=== PATIENT | female | born 1995 | race Caucasian/White ===

== ENCOUNTER 2018-01-23 07:43 | Emergency (ER) | payer MEDICAID, SELFPAY ==
[2018-01-23 07:44] VITALS: BP 124/69; PULSE 102; RESP 18; TEMP 36.4; O2SAT 98; BMI 37.3
--- NOTE | 2018-01-23 07:54 | ED.VISSUMM ---
- ER Visit Summary Date of Service: 01/23/18 Chief Complaint: Abdominal pain History of Present Illness: The patient is a 22 F who presents with abdominal pain. She states for the past week she has been having intermittent cramping in her suprapubic area. She has had some nausea associated with this. No vomiting, diarrhea or constipation. She denies any urinary symptoms. Her last menstrual period was on December 15. She states these do feel like period cramps. She had an IUD that was taken out in November. It was Mirena. She has not had a fever. She took no medications for this at home. Physical Examination: Vital signs reviewed. HEENT exam unremarkable. Heart is regular rate and rhythm without murmurs. Lungs are clear to auscultation. Abdomen is soft with suprapubic tenderness to palpation. Extremities reveal no edema. Skin exam normal. Neurologic exam normal. Test Results: Urinalysis reveals 10-25 white blood cells. HCG is positive. An hCG quantitative was then obtained and shows a quant of 81 Emergency Department Course and Treatment: The patient's initial urine hCG was initially negative but then after it sat it became positive. A quant shows a level of 81. She does have 10-25 white blood cells in her urine. Patient does have a . She is very early so I do not feel that ultrasound is needed. I will treat her with antibiotics for the urinary tract infection. She will be given the on-call [employer] TECHNICIAN for follow-up. Treatment Plan: [] Disposition: Discharge Impression: UTI, This note was generated with tomoguides dictation software. It may contain incorrect words, spelling, and punctuation that were not noted in review of the chart prior to signing ED Disposition - Plan for ED Patient: Chief Complaint: Abd Pain Referrals: [facility] Doctor,Out of [NON-STAFF] -
[2018-01-23] MEDS: Acetaminophen 500 MG Tablet 1000 MG PO (08:08)
[2018-01-23] MEDS: Ondansetron ODT 4 MG Tablet PO (08:08)
[2018-01-23 08:14] LABS: Mucous, Urine 0 SEEN /hpf (<or=2+)
[2018-01-23 08:20] LABS: Color, Urine Yellow (Yellow); Glucose, Dipstick 1000 mg/dl (Normal); Ketone-Dipstick 50 mg/dl (Negative); Leukocyte Esterase-Dipstick 100 /ul (Negative); Nitrite-Dipstick Negative (Negative); Occult Blood-Urine 10 /ul (Negative); Protein-Dipstick 15 mg/dl (Negative); Urine Bilirubin Dipstick Negative (Negative); Urine Clarity Sl. Cloudy (Clear); Urine Urobilinogen Normal (Normal)
[2018-01-23 08:22] LABS: Internal QC Validated? YES +Cl - CLEAR BKGD
[2018-01-23 08:31] LABS: Bacteria 1+ /hpf (None Seen); Red Blood Cells-Urine 0-5 SEEN /hpf (0-5); Squamous Epithelial Cells - UA 0-5 SEEN /hpf (5-10); White Blood Cells 10-25 SEEN /hpf (0-5)
[2018-01-23 08:46] LABS: Pregnancy, Urine Positive Negative
[2018-01-23 09:57] LABS: hCG Titer Quant., Serum 81 mIU/mL (<9 non-preg)
--- NOTE | 2018-01-23 10:03 | ED.DEP ---
ED Disposition - Plan for ED Patient: Disposition: Home or Assisted Living Chief Complaint: Abd Pain Instructions: ED UTI Cystitis Female Prescriptions: Cephalexin [Keflex] 500 mg PO BID #10 cap Referrals: [facility] Doctor,Out of [NON-STAFF] - Vance Mitchell MD [STAFF PHYSICIAN] -
== END 2018-01-23 10:17 | disposition home or self-care (01) ==
PROVIDERS: Emergency Provider Emergency Medicine
DX: O23.40 Unspecified infection of urinary tract in pregnancy, unspecified trimester (principal); O99.519 Diseases of the respiratory system complicating pregnancy, unspecified trimester; J45.909 Unspecified asthma, uncomplicated; O24.919 Unspecified diabetes mellitus in pregnancy, unspecified trimester; O16.9 Unspecified maternal hypertension, unspecified trimester; O99.330 Smoking (tobacco) complicating pregnancy, unspecified trimester; F17.200 Nicotine dependence, unspecified, uncomplicated; Z3A.00 Weeks of gestation of pregnancy not specified; Z79.84 Long term (current) use of oral hypoglycemic drugs; Z79.899 Other long term (current) drug therapy
CPT/HCPCS: 36415; 81001; 81025; 84702; 99283

== ENCOUNTER → 2018-01-27 12:46 | Outpatient (CLI) | payer MEDICAID, SELFPAY ==
[2018-01-27 22:00] LABS: Chlamydia Trachomatis by PCR Negative (Negative); Neisserai gonorrhoeae by PCR Negative (Negative); Probe Check PASS; Sample Adequacy Control PASS; Specimen Processing Control PASS
[2018-02-04 08:08] LABS: HPV Reflexed? NOT INDICATED
== END ==
PROVIDERS: Visit Provider Obstetrics & Gynecology
DX: Z32.01 Encounter for pregnancy test, result positive (principal); Z11.3 Encounter for screening for infections with a predominantly sexual mode of transmission; Z12.4 Encounter for screening for malignant neoplasm of cervix
CPT/HCPCS: 87491; 87591; 88175; G0145

== ENCOUNTER → 2018-01-29 09:21 | Outpatient (CLI) | payer MEDICAID, SELFPAY ==
[2018-01-29 11:13] LABS: Hemoglobin A1c 9.2 % (4.2-6.3)
[2018-01-29 11:35] LABS: hCG Titer Quant., Serum 1140 mIU/mL (<9 non-preg)
== END ==
PROVIDERS: Visit Provider Obstetrics & Gynecology
DX: Z32.01 Encounter for pregnancy test, result positive (principal)
CPT/HCPCS: 36415; 83036; 84702

== ENCOUNTER → 2019-02-02 | Outpatient (CLI) | payer MEDICAID, SELFPAY | END | disposition home or self-care (01) | LOC: LABSPEC 02-03 11:38 | PROVIDERS: Visit Provider Obstetrics & Gynecology | DX: Z12.4 Encounter for screening for malignant neoplasm of cervix (principal) | CPT/HCPCS: 88175; G0145 ==

== ENCOUNTER → 2019-09-01 15:46 | Outpatient (CLI) | payer MEDICAID, SELFPAY ==
[2019-09-01 18:04] LABS: Progesterone Level 1.35 ng/mL (See Comment)
[2019-09-01 18:08] LABS: hCG Titer Quant., Serum < 1 mIU/mL (1-3)
== END ==
PROVIDERS: Visit Provider Obstetrics & Gynecology
DX: Z30.8 Encounter for other contraceptive management (principal)
CPT/HCPCS: 36415; 84144; 84702

== ENCOUNTER → 2021-01-01 | Outpatient (CLI) | payer MEDICAID, SELFPAY ==
[2021-01-01 14:05] LABS: M R Staph aureus DNA By PCR Negative (Negative); Probe Check PASS; Specimen Processing Control PASS; Staph aureus DNA By PCR POSITIVE (Negative)
== END | disposition home or self-care (01) ==
LOC: LABSPEC 10:38
PROVIDERS: Referring Provider Ophthalmology; Visit Provider Ophthalmology
DX: H00.031 Abscess of right upper eyelid (principal)
CPT/HCPCS: 87070; 87077; 87186; 87205; 87640

== ENCOUNTER 2024-09-24 13:48 | Outpatient (CLI) | payer MEDICARE, MEDICAID, SELFPAY ==
[2024-09-24 14:06] VITALS: BP 122/70; PULSE 100
[2024-09-24 14:07] VITALS: RESP 16; TEMP 36.7
[2024-09-24 15:07] VITALS: BMI 35.5
--- NOTE | 2024-09-25 09:34 | OB.TRI.HP_ITS ---
HPI - General HPI Narrative AUTUMN KING, is a 29 F who presents at 27 weeks with ADA 12/23/24 with complaints of abdominal tightening. No vaginal bleeding, leakage of fluid or other symptoms. PFSH PFSH Medical History Seizures Asthma Osteoarthritis Diabetes Home Medications ?Medication ?Instructions ?Recorded ?Last Taken ?Type ibuprofen 600 mg tablet 600 mg PO Q6H PRN Pain #60 T ABLETS 01/22/17 Unknown Rx glipizide 5 mg tablet 5 mg PO BID 01/23/18 Unknown History metformin 1,000 mg tablet 500 mg PO BIDCM 01/23/18 Unk nown History buspirone 15 mg tablet 15 mg PO QDAY 02/26/24 Unkno wn History fluconazole 150 mg tablet 150 mg PO Q3D 2 doses #2 tab s 02/26/24 Unknown Rx fluoxetine 40 mg capsule 40 mg PO QDAY 02/26/24 Unkno wn History insulin glargine 100 unit/mL (3 unit subcut 02/26/24 U nknown History mL) subcutaneous pen (Lantus Solostar U-100 Insulin) insulin lispro 100 unit/mL subcut 02/26/24 Unknown His tory subcutaneous pen (Humalog KwikPen (U-100) Insulin) lumateperone 21 mg capsule 21 mg PO QDAY 02/26/24 Unkn own History (Caplyta) Allergy/AdvReac Type Severity Reaction Status Date / Time No Known Allergies Allergy Verified 02/26/24 13:44 Family History Other Heart disease Hyperlipemia Surgical History History of dilation and curettage History of oral surgery History of cholecystectomy Social History Smoking Status: Current every day smoker alcohol intake: never substance use type: does not use History Elective abortions Hx Para 0 Spontaneous abortions Hx # Term Pregnancies Ectopic pregnancies Hx # Pregnancies Multiple births # of living children NST FHR Rate Baby A Baseline: 140 Variability:: Moderate Accelerations:: 15 x 15 Decelerations:: None Uterine Activity:: Irritability, nothing palpated Assessment & Plan (1) 27 weeks gestation of : (2) Uterine irritability: PLAN: Plan 1) No signs of labor 2) PO hydration 3) D/C home
== END 2024-09-24 15:10 | disposition home or self-care (01) ==
LOC: WPOUT 14:01 → WP 14:03
PROVIDERS: PCP Family Medicine; Referring Provider Advanced Practice Midwife; Visit Provider Advanced Practice Midwife
DX: O62.4 Hypertonic, incoordinate, and prolonged uterine contractions (principal); O99.332 Smoking (tobacco) complicating pregnancy, second trimester; F17.200 Nicotine dependence, unspecified, uncomplicated; Z3A.27 27 weeks gestation of pregnancy
CPT/HCPCS: 59025; 59050; 99221; G0378

== ENCOUNTER 2024-10-16 17:10 | Outpatient (CLI) | payer MEDICARE, MEDICAID, SELFPAY ==
[2024-10-16 17:53] VITALS: BMI 36.8
[2024-10-16 17:55] VITALS: PULSE 156; O2SAT 79
[2024-10-16 17:56] VITALS: BP 127/71; PULSE 92; PULSE 94; PULSE 96; RESP 14; TEMP 36.7; O2SAT 99
[2024-10-16 18:24] LABS: Bacteria 0 SEEN /hpf (None Seen); Color, Urine Yellow (Yellow); Glucose, Dipstick 50 mg/dl (Normal); Ketone-Dipstick Negative (Negative); Leukocyte Esterase-Dipstick 25 /ul (Negative); Mucous, Urine 0 SEEN /hpf (<or=2+); Nitrite-Dipstick Negative (Negative); Occult Blood-Urine Negative /ul (Negative); Protein-Dipstick 30 mg/dl (Negative); Red Blood Cells-Urine 0 SEEN /hpf (0-5); Specific Gravity, Urine 1.025 (1.002-1.030); Urine Bilirubin Dipstick Negative (Negative); Urine Clarity Sl. Cloudy (Clear); Urine Urobilinogen 1 mg/dl (Normal); White Blood Cells 0 SEEN /hpf (0-5)
[2024-10-16 18:34] LABS: Squamous Epithelial Cells - UA 5-10 SEEN /hpf (5-10)
[2024-10-16] MEDS: Lactated Ringers 1,000 ML 999 ML IV (18:35)
--- NOTE | 2024-10-16 18:38 | OB.TRI.NOTE ---
HPI - General HPI Narrative AUTUMN KING, is a 29 F at 31 weeks gestation who presents with lower abdominal pain and tightening. Denies any loss of fluid or vaginal bleeding. Maternal Data Information ADA Calculator Estimated Delivery Date Method Current WG Current Estimate 12/18/24 Manual 31w 0d PFSH PFS Medical History Seizures Asthma Osteoarthritis Diabetes Home Medications ?Medication ?Instructions ?Recorded ?Last Taken ?Type glipizide 5 mg tablet 5 mg PO BID 01/23/18 Unknown History Held on 10/16/24. Instructions: metformin 1,000 mg tablet 500 mg PO BIDCM 01/23/18 Unknown History Held on 10/16/24. Instructions: buspirone 15 mg tablet 15 mg PO QDAY 02/26/24 Unknown History fluoxetine 40 mg capsule 20 mg PO QDAY Mood 02/26/24 Unknown History insulin lispro 100 unit/mL 23 unit subcut .COMPLEX 02/26/24 Unknown History subcutaneous pen (Humalog KwikPen pregestational diabetes (U-100) Insulin) HumuLIN N NPH Insulin KwikPen 90 units subcut QHS type II 10/16/24 Unknown History diabetes aspirin 81 mg tablet,delayed 81 mg PO DAILY 10/16/24 Unknown History release (Adult Aspirin Regimen) Allergy/AdvReac Type Severity Reaction Status Date / Time aripiprazole (From Abilify) AdvReac Other Verified 10/16/24 17:43 metoclopramide (From Reglan) AdvReac Other Verified 10/16/24 17:43 ondansetron (From Zofran) AdvReac Vomiting Verified 10/16/24 17:43 quetiapine (From Seroquel) AdvReac Other Verified 10/16/24 17:43 sertraline (From Zoloft) AdvReac Other Verified 10/16/24 17:43 Family History Other Heart disease Hyperlipemia Surgical History History of dilation and curettage History of oral surgery History of cholecystectomy Social History Smoking Status: Current every day smoker alcohol intake: never substance use type: does not use History Elective abortions Hx Para 0 Spontaneous abortions Hx # Term Pregnancies Ectopic pregnancies Hx # Pregnancies Multiple births # of living children Physical Exam Narrative Patient seen at bedside for evaluation. C/O upper abdominal pain and tightening at times. Increased movements today. Has not drank a lot of water - drinking juice most of the day. Assessment & Plan (1) 31 weeks gestation of : (2) Type 2 diabetes mellitus affecting , antepartum: (3) History of herpes genitalis: (4) Asthma: (5) Bipolar 1 disorder: (6) Obesity affecting : PLAN: Plan NST reactive No contractions via TOCO or palpated UA + ketones, protein, glucose , - sent for culture IV- 1000 cc bolus of LR Abdomen is non tender with palpation CE - closed/ thick D/C home with follow up in office on Friday Dr. Julian involved with plan of care
[2024-10-16 18:57] LABS: Bedside Glucose 106 mg/dL (74-106)
== END 2024-10-16 20:00 | disposition home or self-care (01) ==
LOC: WPOUT 17:23 → WP 17:24
PROVIDERS: PCP Family Medicine; Visit Provider Advanced Practice Midwife
DX: O99.891 Other specified diseases and conditions complicating pregnancy (principal); F31.9 Bipolar disorder, unspecified; Z79.4 Long term (current) use of insulin; O24.113 Pre-existing type 2 diabetes mellitus, in pregnancy, third trimester; O99.513 Diseases of the respiratory system complicating pregnancy, third trimester; O99.343 Other mental disorders complicating pregnancy, third trimester; O99.213 Obesity complicating pregnancy, third trimester; J45.909 Unspecified asthma, uncomplicated; R10.9 Unspecified abdominal pain; Z79.82 Long term (current) use of aspirin; Z79.899 Other long term (current) drug therapy; Z3A.31 31 weeks gestation of pregnancy
CPT/HCPCS: 96365; 96366; 59025; 59050; 81001; 82962; 87077; 87086; 87088; 87186; 99221; G0378

== ENCOUNTER 2024-11-15 15:32 | Outpatient (CLI) | payer MEDICARE, MEDICAID, SELFPAY ==
[2024-11-15 16:01] VITALS: BMI 37.8
[2024-11-15 16:12] VITALS: BP 118/75; PULSE 97; RESP 16; TEMP 36.4; O2SAT 98
[2024-11-15 16:13] VITALS: BP 118/75; PULSE 96
[2024-11-15 16:19] LABS: Mucous, Urine 0 SEEN /hpf (<or=2+)
[2024-11-15 17:30] LABS: Color, Urine Yellow (Yellow); Glucose, Dipstick 1000 mg/dl (Normal); Ketone-Dipstick 5 mg/dl (Negative); Leukocyte Esterase-Dipstick Negative /ul (Negative); Nitrite-Dipstick Negative (Negative); Occult Blood-Urine Negative /ul (Negative); Protein-Dipstick 15 mg/dl (Negative); Urine Bilirubin Dipstick Negative (Negative); Urine Clarity Clear (Clear); Urine Urobilinogen 1 mg/dl (Normal)
[2024-11-15 18:35] LABS: Red Blood Cells-Urine 0-5 SEEN /hpf (0-5); White Blood Cells 0-5 SEEN /hpf (0-5)
[2024-11-15 18:36] LABS: Amorphous Sediment 1+; Bacteria 2+ /hpf (None Seen); Calcium Oxalate Crystals Ur 2+ /hpf (<or=2+); Squamous Epithelial Cells - UA 5-10 SEEN /hpf (5-10)
--- NOTE | 2024-11-19 07:12 | OB.TRI.NOTE ---
HPI - General General Date of Service: 11/15/24 HPI Narrative AUTUMN KING, is a 29 F @ 35.2 weeks who presents c/o contractions - r/o labor Maternal Data Information ADA Calculator Estimated Delivery Date Method Current WG Current Estimate 12/18/24 Manual 35w 6d [facility]SM[facility] Medical History Seizures Asthma Osteoarthritis Diabetes Home Medications ?Medication ?Instructions ?Recorded ?Last Taken ?Type buspirone 15 mg tablet 15 mg PO QDAY 02/26/24 11/15/24 10:00 History insulin lispro 100 unit/mL 23 unit subcut .COMPLEX 02/26/24 11/15/24 13:00 History subcutaneous pen (Humalog KwikPen pregestational diabetes (U-100) Insulin) HumuLIN N NPH Insulin KwikPen 90 units subcut QHS type II 10/16/24 11/14/24 22:00 History diabetes aspirin 81 mg tablet,delayed 81 mg PO DAILY 10/16/24 11/14/24 22:00 History release (Adult Aspirin Regimen) acyclovir 400 mg tablet 400 mg PO BID 11/15/24 11/15/24 10:00 History albuterol sulfate 90 mcg/actuation 1 - 2 puff inhalation PRN PRN 11/15/24 11/01/24 15:57 History aerosol inhaler shortness of breath or wheezing fluoxetine 20 mg capsule 20 mg PO DAILY 11/15/24 11/15/24 10:00 History Allergy/AdvReac Type Severity Reaction Status Date / Time aripiprazole (From Abilify) AdvReac Other Verified 11/15/24 15:53 metoclopramide (From Reglan) AdvReac Other Verified 11/15/24 15:53 ondansetron (From Zofran) AdvReac Vomiting Verified 11/15/24 15:53 quetiapine (From Seroquel) AdvReac Other Verified 11/15/24 15:53 sertraline (From Zoloft) AdvReac Other Verified 11/15/24 15:53 Family History Other Heart disease Hyperlipemia Surgical History History of dilation and curettage History of oral surgery History of cholecystectomy Social History Smoking Status: Current every day smoker alcohol intake: never substance use type: does not use History Elective abortions Hx Para 0 Spontaneous abortions Hx # Term Pregnancies Ectopic pregnancies Hx # Pregnancies Multiple births # of living children NST FHR Rate Baby A Baseline: 135 Variability:: Moderate Accelerations:: 15 x 15 Decelerations:: None NST Reactive:: Yes FHR Category:: Category I Uterine Activity:: irregular Assessment & Plan (1) False labor: (2) Obesity affecting : (3) 35 weeks gestation of : PLAN: Plan @ 35.2 weeks - false labor 1) nst reactive, false labor 2) Dc home
== END 2024-11-15 18:50 | disposition home or self-care (01) ==
LOC: WPOUT 15:33 → WP 15:33
PROVIDERS: PCP Family Medicine; Referring Provider Obstetrics & Gynecology; Visit Provider Obstetrics & Gynecology
DX: O47.03 False labor before 37 completed weeks of gestation, third trimester (principal); Z79.4 Long term (current) use of insulin; O99.213 Obesity complicating pregnancy, third trimester; O99.333 Smoking (tobacco) complicating pregnancy, third trimester; F17.200 Nicotine dependence, unspecified, uncomplicated; O24.313 Unspecified pre-existing diabetes mellitus in pregnancy, third trimester; Z3A.35 35 weeks gestation of pregnancy; Z79.82 Long term (current) use of aspirin; Z79.899 Other long term (current) drug therapy
CPT/HCPCS: 59025; 59050; 81001; 87086; 87088; 99221; G0378

== ENCOUNTER 2024-12-07 11:00 | Inpatient (IN) | payer MEDICARE, MEDICAID, SELFPAY ==
[2024-12-07] VITALS (67 sets, daily range): BP systolic 116–142; BP diastolic 55–85; PULSE 84–127; RESP 15–18; TEMP 36.1–36.5; O2SAT 83–100; BMI 38.7
[2024-12-07] MEDS: Lactated Ringers 1,000 ML 50 ML IV (12:00)
[2024-12-07 12:20] LABS: Hematocrit 36.0 % (37-47); Hemoglobin 12.1 g/dL (12.0-15.0); Immature Granulocytes Count 0.050 X10^3/uL (0.0-0.0); Mean Corp Hgb Conc 33.6 g/dL (32-36); Mean Corpuscular Volume 84.7 fL (81-99); Mean Platelet Vol. 9.7 fl (6.2-12.0); NRBC Flagged by Analyzer 0 % (0-5); Platelet Count 230 K/mm3 (150-450); RBC Distribution Width CV 13.4 % (11.6-14.6); RBC Distribution Width SD 41.1 fl (35.1-43.9); Red Blood Count 4.25 M/mm3 (4.2-5.4); White Blood Count 9.0 K/mm3 (4.4-11.0)
--- NOTE | 2024-12-07 12:23 | HP.PCM.OB_ITS ---
HPI - General General Date of Admission: 12/07/24 HPI Narrative AUTUMN KING, is a 29 F who presents Maternal Data Information ADA Calculator Estimated Delivery Date Method Current WG Current Estimate 12/18/24 Manual 38w 3d [facility] Medical History Seizures Asthma Osteoarthritis Diabetes Home Medications ?Medication ?Instructions ?Recorded ?Last Taken ?Type buspirone 15 mg tablet 15 mg PO QDAY 02/26/2411/15 10:00 History insulin lispro 100 unit/mL 23 unit subcut .COMPLEX 11/15/24 13:00 History subcutaneous pen (Humalog KwikPen pregestational diabe deacon (U-100) Insulin) HumuLIN N NPH Insulin KwikPen 90 units subcut QHS type II 10/16/24 11/14/24 22:00 History diabetes aspirin 81 mg tablet,delayed 81 mg PO DAILY 10/16/24 0 11/14/24 22:00 History release (Adult Aspirin Regimen) acyclovir 400 mg tablet 400 mg PO BID 11/15/2411/15 10:00 History albuterol sulfate 90 mcg/actuation 1 - 2 puff inhalati on PRN PRN 11/15/24 11/01/24 15:57 History aerosol inhaler shortness of breath or wheez ing fluoxetine 20 mg capsule 20 mg PO DAILY 11/15/2403/03 10:00 History Allergy/AdvReac Type Severity Reaction Status Date / Time aripiprazole (From Abilify) AdvReac Other Verified 11/15/24 15:53 metoclopramide (From Reglan) AdvReac Other Verified 11/15/24 15:53 ondansetron (From Zofran) AdvReac Vomiting Verified 11/15/24 15:53 quetiapine (From Seroquel) AdvReac Other Verified 11/15/24 15:53 sertraline (From Zoloft) AdvReac Other Verified 11/15/24 15:53 Family History Other Heart disease Hyperlipemia Surgical History History of dilation and curettage History of oral surgery History of cholecystectomy Social History Smoking Status: Current every day smoker alcohol intake: never substance use type: does not use History Elective abortions Hx Para 0 Spontaneous abortions Hx # Term Pregnancies Ectopic pregnancies Hx # Pregnancies Multiple births # of living children NST FHR Rate Baby A Baseline: 130 Variability:: Moderate Accelerations:: 15 x 15 Decelerations:: None Uterine Activity:: Irregular Vital Signs Vital Signs Vital Signs: Weight Weight: 211 lb 10.3 oz Body Mass Index (BMI) 38.7 Physical Exam Const alert, oriented x3 and no apparent distress GI soft to palpation, non-tender and non-distended Inspection: gravid external exam normal Narrative: cvx - 3/70/-2, AROM clear fluid Labs Labs Labs: Blood Type A POSITIVE Antibody Screen NEGATIVE Hct 36.0 % (37-47) L Hgb 12.1 g/dL (12.0-15.0) Group B Strep DNA Negative (Negative) Rhogam given: No
--- NOTE | 2024-12-07 12:23 | PCM.HP.OB ---
HPI - General General Date of Admission: 12/07/24 HPI Narrative AUTUMN KING, is a 29 F who presents with contractions and was scheduled for induction today. Maternal Data Information ADA Calculator Estimated Delivery Date Method Current WG Current Estimate 12/18/24 Manual 38w 3d PFSH [facility] Medical History (Updated 12/07/24 @ 13:[address] William Radford MD) Seizures Asthma Osteoarthritis Diabetes Medical History no medical history Home Medications ?Medication ?Instructions ?Recorded ?Last Taken ?Type buspirone 15 mg tablet 15 mg PO QDAY anxiety 02/26/24 12/07/24 History insulin lispro 100 unit/mL 23 unit subcut .COMPLEX 02/26/24 12/07/24 History subcutaneous pen (Humalog KwikPen pregestational diabetes (U-100) Insulin) HumuLIN N NPH Insulin KwikPen 90 units subcut QHS type II 10/16/24 12/06/24 History diabetes aspirin 81 mg tablet,delayed 81 mg PO DAILY 10/16/24 12/06/24 History release (Adult Aspirin Regimen) acyclovir 400 mg tablet 400 mg PO BID HSV 11/15/24 12/07/24 History albuterol sulfate 90 mcg/actuation 1 - 2 puff inhalation PRN PRN 11/15/24 11/01/24 15:57 History aerosol inhaler shortness of breath or wheezing fluoxetine 20 mg capsule 20 mg PO DAILY anxiety 11/15/24 12/07/24 History Allergy/AdvReac Type Severity Reaction Status Date / Time aripiprazole (From Abilify) AdvReac Other Verified 11/15/24 15:53 metoclopramide (From Reglan) AdvReac Other Verified 11/15/24 15:53 ondansetron (From Zofran) AdvReac Vomiting Verified 11/15/24 15:53 quetiapine (From Seroquel) AdvReac Other Verified 11/15/24 15:53 sertraline (From Zoloft) AdvReac Other Verified 11/15/24 15:53 Family History Other Heart disease Hyperlipemia Surgical History History of dilation and curettage History of oral surgery History of cholecystectomy Surgical History no surgical history Social History Smoking Status: Current every day smoker tobacco type: cigarettes alcohol intake: never substance use type: does not use History Elective abortions Hx Para 1 Spontaneous abortions Hx # Term Pregnancies Ectopic pregnancies Hx # Pregnancies Multiple births # of living children NST FHR Rate Baby A Baseline: 130 Variability:: Moderate Accelerations:: 15 x 15 Decelerations:: None Uterine Activity:: Irregular Vital Signs Vital Signs Vital Signs: Weight Weight: 211 lb 10.3 oz Body Mass Index (BMI) 38.7 Physical Exam Const alert, oriented x3 and no apparent distress GI soft to palpation, non-tender and non-distended Inspection: gravid external exam normal Narrative: cvx - 3/70/-2, AROM clear fluid Labs Labs Labs: Blood Type A POSITIVE Antibody Screen NEGATIVE Hct 36.0 % (37-47) L Hgb 12.1 g/dL (12.0-15.0) Group B Strep DNA Negative (Negative) Rhogam given: No Assessment & Plan (1) Type 2 diabetes mellitus affecting , antepartum: COMMENT: @ 38&3 (2) History of herpes genitalis: (3) Obesity affecting : QUALIFIERS: Trimester: third trimester Obesity type affecting : unspecified obesity Qualified Code(s): O99.213 - Obesity complicating , third trimester (4) 38 weeks gestation of : PLAN: Plan Admit to L&D. Expectant management and will augment with pitocin if needed. GBS positive - pcn per protocol. Pain - epidural as desired. EFW - less than 4500g and patient with adequate pelvis. Routine care.
[2024-12-07] MEDS: Penicillin G Pot 5,000,000 UNITS in 0.9% Normal Saline (100mL MB+) 100 ML 150 UNITS IV (12:30)
[2024-12-07 13:14] LABS: Barbiturate Urine NEGATIVE (< 200 ng/mL); Benzodiazepine Urine NEGATIVE (< 200 ng/mL); PCP Urine NEGATIVE (< 25 ng/mL); THC Urine NEGATIVE (< 50 ng/mL)
[2024-12-07 14:03] LABS: Syphilis Antibodies Nonreactive (Nonreactive)
[2024-12-07] MEDS: Oxytocin 15 Units/NS 250ml 15 UNITS/250 ML IV.SOLN 2 UNITS IV (14:43)
[2024-12-07] MEDS: Lactated Ringers 1,000 ML 999 ML IV (16:30)
[2024-12-07] MEDS: Penicillin G 3,000,000 Units 50 ML 100 UNITS IV (16:42)
[2024-12-07] MEDS: fentaNYL-bupivacaine (epidural) 100 ML BAG EPIDURAL (17:35)
[2024-12-07] MEDS: Lactated Ringers 1,000 ML 200 ML IV (18:21)
[2024-12-07] MEDS: Oxytocin 15 Units/NS 250ml 15 UNITS/250 ML IV.SOLN 334 UNITS IV (19:57)
--- NOTE | 2024-12-07 20:24 | OB.VAGDELI_ITS ---
Maternal Data Information ADA Calculator Estimated Delivery Date Method Current WG Current Estimate 12/18/24 Manual 38w 3d Vaginal Delivery Maternal Presentation Maternal Presentation: Medically Indicated Induction Type of Induction: Pitocin and Amniotomy Medical Reason for Induction: Maternal Medical Condition: list: (Pregestational diabetes) Vaginal Delivery Information Procedure Performed: Spontaneous Vaginal Delivery Surgeon/Practitioner: William Radford Date of Procedure: 12/07/24 Pre-Procedure Diagnosis: Pregestational diabetes Post-Procedure Diagnosis: Same Type of anesthesia: Epidural Estimated Blood Loss: 300ml Findings Description of procedure: Called to room when patient C/C/+1. She was prepped & draped. Patient pushed well to deliver the head. head was gently guided to allow delivery of anterior and posterior shoulders. No excess traction placed on the head. The body delivered. 3VC clamped and cut in delayed fashion. Placenta delivered with gentle traction and good uterine tone obtained. 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
[2024-12-07] MEDS: Oxytocin 15 Units/NS 250ml 15 UNITS/250 ML IV.SOLN 83 UNITS IV (20:29)
--- OUTSIDE RECORDS SUMMARY | 2024-12-07 22:01 | XMS RPT_ITS | CCD ---
Author Organization [facility] Care Team Providers Care Esthetic Dermatologist Name Role Phone JOSIE HERNANDEZ Unavailable Unavailable ARMINDA, VERONA Unavailable Unavailable ARMINDA, VERONA Unavailable Unavailable RAPHAEL CABEZAS Unavailable Unavailable ARMINDA, VERONA Unavailable Unavailable HERNANDEZ JOSIE Unavailable Unavailable ARMINDA, VERONA Unavailable Unavailable JAMA, JAMILA Unavailable Unavailable GRISELDA KADE L Unavailable Unavailable Physician, No PCP Unavailable Unavailable Physician, PCP Unknown Unavailable Unavailab CHRISTOPHER Belcher Unavailable Unavailable MILLY SINCLAIR Unavailable Unavailable SARAI PAULA Unavailable Unavailable HWAK, FABIO C Unavailable Unavailable HAWK, FABIO C Unavailable Unavailable HAWK, FABIO C Unavailable Unavailable CASTRO VAUGHN CNP Unavailable Unavailable PROVIDER, UNKNOWN Unavailable Unavailable PROVIDER, UNKNOWN Unavailable Unavailable MELVER, KALYANI Unavailable Unavailable GARCIAS, EDROY L Unavailable Unavailable GARCIAS, EDROY L Unavailable Unavailable MELVER, KALYANI Unavailable Unavailable MELVER, KALYANI Unavailable Unavailable GARCIAS, EDROY L Unavailable Unavailable Kelsey Stewart Admitting Unavailable Kelsey Stewart Attending Unavailable Elie Hernadez Admitting Unavailabl Elie Castillo Attending Unavailabl e Arminda, Verona Primary Care Provider [phone] Arminda, Verona Primary Care Provider Juno Blackburn Unavailable Unavailable Unavailable Unavailable Unavailable Oberhauser, Rich Unavailable Unavailable Subiaco, Juno Unavailable Unavailable Oberhauser, Rich L Unavailable Unavailable MATY CHAVEZ Admitting Unavailable KOMALMATY CORBIN Referring Unavailable ARMINDA, VERONA Primary Care Unavailable Arminda, Verona Primary Care Provider ARMINDA, VERONA Primary Care Unavailable SRINI MEDINA Attending Unavailable ARMINDA, VERONA Primary Care Unavailable OBERHAUSER, RICH Referring Unavailable MEDINASRINI Attending Unavailable ARMINDA, VERONA Primary Care Unavailable CALISTA ROCHA Attending Unavailabl e MEDINASRINI Attending Unavailable ARMINDA, VERONA Primary Care Unavailable SRINI MEDINA Admitting Unavailable ARMINDA, VERONA Primary Care Unavailable SRINI MEDINA Attending Unavailable SRINI MEDINA Referring Unavailable ARMINDA, VERONA Primary Care Unavailable MATY CHAVEZ Attending Unavailable KOMALMATY Referring Unavailable Arminda, Verona Primary Care Provider Unavailabl e Oberhauser, Rich L Unavailable Epifanio Sorensen Unavailable Unavailable Oberhauser, Rich L Unavailable Unavailable Unavailable Unavailable Unavailable AJ KATIANA Referring Unavailable KATIANA ROCHA Primary Care Unavailable Jamari Byrne Unavailable Unavailable Unavailable Unavailable Unavailable Unavailable Unavailable Marshall Brown MD Primary Care Provider MARSHALL BROWN Primary Care Unavailable LAZARA JON Attending Unavailable MD JEANIE SUTTON Attending Unava ilMD JEANIE [place] Referring Unava ilable Chavez, Dr. Jamari Kearns Primary Care Unavailab le Elie Collins Attending Unavailable Elie Collins Referring Unavailable Chavez, Dr. Jamari Kearns Primary Care Unavailab le Chavez, Dr. Jamari Kearns Primary Care Unavailab le Chavez, Dr. Jamari Kearns Attending Unavailab le Chavez, Dr. aJmari Kearns Referring Unavailab le Chavez, Dr. Jamari Kearns Attending Unavailab le Chavez, Dr. Jamari Kearns Referring Unavailab le Chavez, Dr. Jamari Kearns Primary Care Unavailab MD JEANIE Cee Attending Unava MD JEANIE Barfield Referring Unava ilable Chavez, Dr. Jamari Kearns Primary Care Unavailab MD JEANIE Cee Attending Unava ilable Chavez, Dr. Jamari Kearns Primary Care Unavailab Jamari Rivera MD Primary Care Provider Jamari Byrne MD Unavailable Jamari Byrne MD Primary Care Provider Jamari Byrne MD Primary Care Provider MILLY JI DO Admitting Unavailable MILLY JI DO Attending Unavailable MILLY JI DO Primary Care Unavailable CHAVEZ, JAMARI L Consulting Unavailable CHAVEZ, JAMARI L Referring Unavailable PROVIDER, UNKNOWN Consulting Unavailable MILLY JI DO Admitting Unavailable MILLY JI DO Attending Unavailable ADAL JULIANCA Lisa Referring Unavailable MILLY JI DO Primary Care Unavailable CHAVEZ, JAMARI L Consulting Unavailable PROVIDER, UNKNOWN Consulting Unavailable CHAVEZ, JAMARI L Primary Care Unavailable CHAVEZ, JAMARI L Primary Care Unavailable Jamari Byrne MD Primary Care Provider Jamari Byrne MD Unavailable CHAVEZ, JAMARI L Attending Unavailable CHAVEZ, JAMARI L Primary Care Unavailable CHAVEZ, JAMARI L Attending Unavailable CHAVEZ, JAMARI L Primary Care Unavailable CHAVEZ, JAMARI L Attending Unavailable CHAVEZ, JAMARI L Primary Care Unavailable JOANIE HURTADO Attending Unavailable CHAVEZ, JAMARI L Primary Care Unavailable CHAVEZ, JAMARI L Attending Unavailable CHAVEZ, JAMARI L Primary Care Unavailable CHAVEZ, JAMARI L Attending Unavailable CHAVEZ, JAMARI L Primary Care Unavailable CHAVEZ, JAMARI L Primary Care Unavailable CHAVEZ, JAMARI L Primary Care Unavailable REZA DYER Attending Unavailable CHAVEZ, JAMARI L Primary Care Unavailable SIXTO MYERS Attending Unavailable Chavez SHAFER, Dr. Kauffman Primary Care Provider [phone] Leonie Waldron CNM Attending Provider Leonie Waldron CNM Referring Provider POOJA LTAHAM Referring Unavailable CHAVEZ, JAMARI L Primary Care Unavailable PAMELA HASKINS Attending Unavailable POOJA LATHAM Referring Unavailable CHAVEZ, JAMARI L Primary Care Unavailable CHAVEZ, JAMARI L Primary Care Unavailable PAMELA HASKINS Attending Unavailable CHAVEZ, JAMARI L Primary Care Unavailable Mariajose Nickerson CNM Attending Provider [phone] CHAVEZ, JAMARI L Primary Care Unavailable WILLIAM GRAMAJO Referring Unavailable Jorge SHAFER, Dr. Dukes Attending Provid er Jorge SHAFER, Dr. Dukes Referring Provid er CHAVEZ, JAMARI L Primary Care Unavailable ELIEL, PIPER L Referring Unavailable ELIEL, PIPER L Referring Unavailable CHAVEZ, JAMARI L Primary Care Unavailable ELIEL, PIPER L Attending Unavailable CHAVEZ, JAMARI L Primary Care Unavailable AVILA, KAREDVIN Referring Unavailable CHAVEZ, JAMARI L Primary Care Unavailable WHIT MORTON Attending Unavail able CHAVEZ, JAMARI L Primary Care Unavailable ELIEL, PIPER L Referring Unavailable ELIEL, PIPER L Attending Unavailable CHAVEZ, JAMARI L Primary Care Unavailable ELIEL, PIPER L Referring Unavailable ELIEL, PIPER L Referring Unavailable CHAVEZ, JAMARI L Primary Care Unavailable ELIEL, PIPER L Referring Unavailable CHAVEZ, JAMARI L Primary Care Unavailable CHAVEZ, JAMARI L Primary Care Unavailable WILLIAM GRAMJAO Attending Unavailable CHAVEZ, JAMARI L Primary Care Unavailable HAJEREMIAH, ZAYDA Referring Unavailable POOJA LATHAM Attending Unavailable CHAVEZ, JAMARI L Primary Care Unavailable LATHAMPOOJA Referring Unavailable CHAVEZ, JAMARI L Primary Care Unavailable CARRIE LARSEN Attending Unavailable CHAVEZ, JAMARI L Primary Care Unavailable ELIEL, PIPER L Referring Unavailable CHAVEZ, JAMARI L Primary Care Unavailable HAURY, ZAYDA Referring Unavailable ELIEL, PIPER L Referring Unavailable CHAVEZ, JAMARI L Primary Care Unavailable CHAVEZ, JAMARI L Primary Care Unavailable KELSY GUILLERMO Attending Unavailable CHAVEZ, JAMARI L Primary Care Unavailable MARY BLACKWELL Attending Unavailable CHAVEZ, JAMARI L Primary Care Unavailable LEONIE WALDRON Attending Unavailable CHAVEZ, JAMARI L Primary Care Unavailable AVILA, KARMON Referring Unavailable CHAVEZ, JAMARI L Primary Care Unavailable KRYS KULKARNI Attending Unavailable CHAVEZ, JAMARI L Primary Care Unavailable KRYS KULKARNI Referring Unavailable CHAVEZ, JAMARI L Primary Care Unavailable CHAVEZ, JAMARI L Primary Care Unavailable KRYS KULKARNI Attending Unavailable CHAVEZ, JAMARI L Primary Care Unavailable HAURY, ZAYDA Referring Unavailable AVILA, KARMON Attending Unavailable CHAVEZ, JAMARI L Primary Care Unavailable JOANNE RONALDO P Attending Unavailable ELIEL, PIPER L Referring Unavailable CHAVEZ, JAMARI L Primary Care Unavailable CHAVEZ, JAMARI L Primary Care Unavailable ELIEL, PIPER L Referring Unavailable CHAVEZ, JAMARI L Primary Care Unavailable ELIEL, PIPER L Referring Unavailable CHAVEZ, JAMARI L Primary Care Unavailable AVILA, KARMON Attending Unavailable CHAVEZ, JAMARI L Primary Care Unavailable KELSY GUILLERMO Attending Unavailable CHAVEZ, JAMARI L Primary Care Unavailable AVILA, KARMON Referring Unavailable CHAVEZ, JAMARI L Primary Care Unavailable AVILA, KARMON Referring Unavailable AVILA, KARMON Attending Unavailable CHAVEZ, JAMARI L Primary Care Unavailable AVILA, KARMON Referring Unavailable ELIEL, PIPER L Attending Unavailable CHAVEZ, JAMARI L Primary Care Unavailable AVILA, KARMON Referring Unavailable CHAVEZ, JAMARI L Primary Care Unavailable CELIA RUBIOONY P Referring Unavailable CHAVEZ, JAMARI L Primary Care Unavailable SELF Referring Unavailable POOJA LATHAM Attending Unavailable CHAVEZ, JAMARI L Primary Care Unavailable HAURY, ZAYDA Attending Unavailable CHAVEZ, JAMARI L Primary Care Unavailable KELSY GUILLERMO Attending Unavailable CHAVEZ, JAMARI L Primary Care Unavailable HAURY, ZAYDA Referring Unavailable ELIEL, PIPER L Referring Unavailable CHAVEZ, JAMARI L Primary Care Unavailable CHAVEZ, JAMARI L Primary Care Unavailable KESHAV LOVING Attending Unavailable CHAVEZ, JAMARI L Primary Care Unavailable KELSY GUILLERMO Attending Unavailable AVILA, KARMON Referring Unavailable CHAVEZ, JAMARI L Primary Care Unavailable HAURY, ZAYDA Referring Unavailable ELIEL, PIPER L Referring Unavailable CHAVEZ, JAMARI L Primary Care Unavailable CHAVEZ, JAMARI L Primary Care Unavailable BRYAN LOVINGA Attending Unavailable KRYS KULKARNI Attending Unavailable CHAVEZ, JAMARI L Primary Care Unavailable ELIEL, PIPER L Referring Unavailable CHAVEZ, JAMARI L Primary Care Unavailable JANESSA GUILLERMOIN Lisa Attending Unavailable CARRIE LARSEN Attending Unavailable CHAVEZ, JAMARI L Primary Care Unavailable CHAVEZ, JAMARI L Primary Care Unavailable WISWELL, KESHAV Attending Unavailable CHAVEZ, JAMARI L Primary Care Unavailable WILLIAM GRAMAJO Referring Unavailable CHAVEZ, JAMARI L Primary Care Unavailable WILLIAM GRAMAJO Attending Unavailable WILLIAM GRAMAJO Referring Unavailable Leonie Waldron Referring Unavailable Chavez, Jamari Primary Care Unavailable Leonie Waldron Attending Unavailable Shreyas Carver Attending Unavailable Care Physician, No Primary Primary Care Unava ilable Care Physician, No Primary Referring Unava ilable Chavez, Jamari Primary Care Unavailable Mariajose Nickerson Attending Unavailable Chavez, Jamari Primary Care Unavailable Neypaulinat-Schulte, Whit Attending Unavail able Neyhart-Schulte, Whit Referring Unavail able Chavez, Jamari Primary Care Unavailable Wiswell, Keshav Admitting Unavailable Wisdrew, Keshav Attending Unavailable Inder, Keshav Referring Unavailable Chavez, Jamari Primary Care Unavailable William Gramajo Admitting Unavailable William Gramajo Attending Unavailable William Gramajo Referring Unavailable Allergies Allergy Classification Reported Allergen(s) Allergy Type Date of Onset Reaction(s) Facility ARIPiprazole (1 source) ARIPiprazole Drug Allergy Unknown [facility] DOPamine Antagonists (5 sources) Metoclopramide; Translations: [Reglan] Drug Allergy Unknown [facility] Ondansetron (5 sources) Ondansetron; Translations: [Zofran] Drug Allergy Unknown [facility] QUEtiapine (5 sources) QUEtiapine; Translations: [quetiapine] Drug Allergy Unknown [facility] (1 source) No Known Drug Allergies; Translations: [No Known Drug Allergies] Propensity to adverse reactions (disorder) [facility] Repository (1 source) No Known Allergies; Translations: [No Known Allergies] Propensity to adverse reactions (disorder) [facility] Repository (20 sources) Ondansetron; Translations: [Zofran] Drug Allergy 02-06-20 18 Nausea and Vomiting, Vomiting, GI Upset, Other, Unknown, Nausea/vomitin [facility] (20 sources) Aluminum Hydroxide / Magnesium Hydroxide; Translations: [ALUMINUM-MAGNESIU M HYDROXIDE] Drug Allergy 02-06-20 18 GI Intolerance, Other, GI Upset [facility] (20 sources) Metoclopramide; Translations: [METOCLOPRAMIDE HCL] Drug Allergy 02-11-20 19 Hives, Unknown [facility] (20 sources) Ondansetron; Translations: [ONDANSETRON HCL] Drug Allergy 02-06-20 18 GI Intolerance, Unknown, GI Upset, Other [facility] (20 sources) QUEtiapine; Translations: [QUETIAPINE] Drug Allergy 10-05-19 19 Shortness Of Breath, Unknown, Palpitations, Other: See Comments, Other [facility] Comment on above: Lethargy (14 sources) Metoclopramide; Translations: [Reglan] Drug Allergy Unknown [facility] Repository (4 sources) Ondansetron; Translations: [ZOFRAN] Drug Allergy Unknown [facility] Repository (20 sources) Sertraline; Translations: [SERTRALINE] Drug Allergy 12-08-19 20 Other, Mental Status Change, Unknown [facility] Rep[facility] Comment on above: Suicidal Ideation (20 sources) ARIPiprazole; Translations: [ARIPIPRAZOLE] Drug Allergy 12-14-19 23 Unknown, Mental Status Change [facility] Work Phone: Comment on above: Suicidal Ideation (20 sources) Metoclopramide; Translations: [METOCLOPRAMIDE] Drug Allergy 02-11-20 19 Vomiting, Hives, Nausea/vomitin g, Unknown [facility] Comment on above: Heart palpitations (20 sources) Promethazine; Translations: [PROMETHAZINE] Drug Allergy 07-11-19 24 GI Upset [facility] Work Phone: (1 source) Promethazine Drug Allergy [facility] Repository (1 source) ARIPiprazole Drug Allergy 11-16-19 25 [facility] Repository (1 source) Metoclopramide Drug Allergy 11-16-19 25 [facility] Repository (1 source) Ondansetron Drug Allergy 11-16-19 25 [facility] Repository (1 source) QUEtiapine Drug Allergy 11-16-19 25 [facility] Repository Medications Current Medications Medication Drug Class(es) Dates Sig (Normalized) Sig (Original) acyclovir 400 mg oral tablet (20 sources) Herpesvirus Nucleoside Analog DNA Polymerase Inhibitor, Herpes Simplex Virus Nucleoside Analog DNA Polymerase Inhibitor, Herpes Zoster Virus Nucleoside Analog DNA Polymerase Inhibitor Start: 10-04-2024 take 1 tablet by mouth twice daily acyclovir (ZOVIRAX) 400 mg tablet Take 1 tablet by mouth two times a day. 60 tablet 3 10/04/2024 Active Start: 04-18-2024 End: 04-18-2024 take 800 mg by mouth once 800 mg, oral, Once, On Sun 1 06/18/23 at 2030, For 1 dose, Coverage: Herpes simplex, Infection Site: Genital Start: 04-18-2024 End: 05-07-2024 take 2 tablets by mouth three times daily acyclovir (ZOVIRAX) 400 mg tablet TAKE 2 TABLETS (800 MG) BY MOUTH 3 TIMES A DAY FOR 2 DAYS. 04/19/2024 05/07/2024 Discontinued [id number] 200 actuat albuterol 0.09 mg/actuat metered dose inhaler (20 sources) beta2-Adrenergic Agonist Start: 11-15-2024 Albut gibson Sulfate 90 mcg/actuation HFA aerosol inhaler Active 1 - 2 NMA INHALATION NEEDED as needed for shortness of breath or wheezing November 15, 2024 12:00am Start: 09-06-2024 take 1-2 puff(s) by inhalation every six hours as needed albuterol 90 mcg/actuation inhaler Indications: Exercise-induced asthma INHALE 1 TO 2 PUFFS EVERY 6 HOURS NEEDED 18 g 3 09/06/2024 Active Start: 09-19-2022 End: 09-06-2024 take 1-2 puff(s) by inhalation every six hours as needed albuterol 90 mcg/actuation inhaler Indications: Exercise-induced asthma INHALE 1 TO 2 PUFFS EVERY 6 HOURS NEEDED 18 g 3 01/23/2024 09/06/2024 Discontinued (Reorder) Start: 10-07-2019 take 1-2 puff(s) by inhalation every six hours as needed Albuterol Sulfate HFA 108 (90 Base) MCG/ACT Inhalation Aerosol Solution INHALE 1 TO 2 PUFFS EVERY 6 HOURS NEEDED. Quantity: 1 Refills: 3 Ordered: 22-Feb-2022 Jamari Byrne MD Start : 07-Oct-2019 Active Start: 10-07-2019 take 1-2 puff(s) by inhalation every six hours as needed Albuterol Sulfate HFA 108 (90 Base) MCG/ACT Inhalation Aerosol Solution INHALE 1 TO 2 PUFFS EVERY 6 HOURS NEEDED. Quantity: 1 Refills: 3 Ordered: 29-May-2021 Rich Ng DO Start : 07-Oct-2019 Active Start: 10-07-2019 take 1-2 puff(s) by inhalation every six hours as needed Albuterol Sulfate HFA 108 (90 Base) MCG/ACT Inhalation Aerosol Solution INHALE 1 TO 2 PUFFS EVERY 6 HOURS NEEDED. Quantity: 1 Refills: 3 Rich Ng DO Start : 07-Oct-2019 Active 8.5 GM Inhaler Start: 02-22-2019 take 2 puff(s) by in halation every six hours as needed albuterol HFA (PROVENTIL HFA, VENTOLIN HFA) 90 mcg/actuation inhaler Inhale 2 Puffs as instructed every 6 hours as needed. 02/22/2019 Active Start: 02-22-2019 take 2 puff(s) by in halation every six hours as needed for wheezing albuterol 90 mcg/actuation inhaler Indications: Mild intermittent asthma without complication Inhale 2 (two) puffs every 6 (six) hours as needed for wheezing . 1 Inhaler 2 02/22/2019 Active Start: 05-05-2018 take 2 puff(s) by in halation every six hours as needed for wheezing albuterol 90 mcg/actuation inhaler Indications: Mild intermittent asthma without complication Inhale 2 (two) puffs every 6 (six) hours as needed for wheezing . 1 Inhaler 2 05/05/2018 Active albuterol HFA (P ROVENTIL HFA, VENTOLIN HFA) 90 mcg/actuation inhaler Inhale 2 Puffs as instructed. Active Comment on above: Inhale 2 Puffs as in structed. albuterol 90 mcg/actuation inhaler (4 sources) Start: 019 take 2 puff(s) by inhalation every six hours as needed for wheezing albuterol 90 mcg/actuation inhaler Indications: Mild intermittent asthma without complication Inhale 2 (two) puffs every 6 (six) hours as needed for wheezing . 1 Inhaler 2 02/22/2019 Active amitriptyline hydrochloride 75 mg oral tablet (3 sources) Tricyclic Antidepressant Start: 018 take 1 tablet by mouth once daily amitriptyline (ELAVIL) 75 MG tablet Indications: Severe episode of recurrent major depressive disorder, without psychotic features (HCC) Take 1 (one) tablet (75 mg total) by mouth nightly . 30 tablet 2 05/05/2018 Active amoxicillin 875 mg oral tablet (3 sources) Penicillin-class Antibacterial Start: End: take 1 tablet by mouth twice daily amoxicillin (AMOXIL) 875 mg tablet Take 1 tablet by mouth two times a day for 5 days. 10 tablet 0 08/19/2023 08/24/2023 Active Start: 02-27-2021 take 1 tablet by migue th once daily Amoxicillin 875 MG Oral Tablet TAKE 1 TABLET EVERY 12 HOURS DAILY. Quantity: 10 Refills: 0 Ordered: 27-Feb-2021 Rich Ng DO Start : 27-Feb-2021 Active Comment on above: Take 1 tablet by migue th two times a day for 5 days. ARIPiprazole 5 mg oral tablet (6 sources) Atypical Antipsychotic Start: 05-05-20 take 1 tablet by mouth once daily ARIPiprazole (ABILIFY) 5 MG tablet Indications: Severe episode of recurrent major depressive disorder, without psychotic features (HCC) Take 1 (one) tablet (5 mg total) by mouth daily . 30 tablet 2 05/05/2018 Active Start: 01-23-2018 End: 02-26-2024 Aripiprazole (Abilify) 20 MG tablet Discontinued 25 mg PO DAILY January 23, 2018 12:00am February 26, 2024 1:48pm aspirin 81 mg delayed release oral tablet (20 sources) Platelet Aggregation Inhibitor, Nonsteroidal Anti-inflammatory Drug Start: 10-16-2024 take 1 tablet by mouth once daily Aspirin (Adult Aspirin Regimen) 81 mg tablet,delayed release (DR/EC) Active 81 mg PO DAILY October 16, 2024 12:00am Start: 07-13-2024 End: 09-06-2024 take 2 tablets by mouth once daily at bedtime aspirin, enteric coated (ASPIRIN, ENTERIC COATED) 81 mg EC tablet Indications: with uncertain dates in first trimester (HCC) TAKE 2 TABLETS BY MOUTH EVERY DAY AT BEDTIME 180 tablet 1 09/06/2024 Active Start: 05-07-2024 End: 07-13-2024 take 1 tablet by mouth once daily aspirin, enteric coated (ECOTRIN LOW STRENGTH) 81 mg EC tablet Indications: with uncertain dates in first trimester Take 1 tablet by mouth once daily. 90 tablet 3 05/07/2024 07/13/2024 Discontinued Blood-Glucose Meter (ONETOUC H VERIO FLEX METER) (20 sources) Start: 08-03-2024 Blood-Glucose Meter (ONETOUCH VERIO FLEX METER) Use to check blood glucose 4 times daily. 1 Each 08/03/2024 Active blood-glucose meter kit (6 sources) Start: 02-22-2019 End: 02-22-2020 blood-glucose meter kit Indications: Type 2 diabetes mellitus without complication, without long-term current use of insulin (HCC) Use as instructed . 1 each 0 02/22/2019 02/22/2020 Active Start: 05-05-2018 End: 05-05-2019 blood-glucose meter kit Breanna cations: Type 2 diabetes mellitus without complication, without long-term current use of insulin (HCC) Use as instructed . 1 each 0 05/05/2018 05/05/2019 Active blood-glucose sensor (FreeSt yle Zoltan 3 Plus Sensor) device (4 sources) End: 09-06-2024 blood-glucose sensor (FreeSt yle Zoltan 3 Plus Sensor) device 1 each once daily. 09/06/2024 Discontinued (Med List Cleanup) blood-glucose se nsor (FreeStyle Zoltan 3 Plus Sensor) device 1 each once daily. Active busPIRone hydrochloride 15 m g oral tablet (20 sources) Start: 02-26-2024 End: 05-04-2025 busPIRone (BUSPAR) 15 mg tablet 04/15/2024 Active Start: 05-23-2023 End: 05-03-2024 take 1 tablet by mouth once busPIRone (BUSPAR) 10 mg t ablet Take 1 tablet by mouth every afternoon. 05/23/2023 05/03/2024 Discontinued Start: 01-11-2020 End: 05-04-2024 take 1 tablet by mouth twice daily busPIRone (Buspar) 5 mg tablet Take 1 tablet (5 mg) by mouth 2 times a day. 01/11/2020 05/04/2024 Discontinued (Med List Cleanup) take 1 tablet by migue th once daily busPIRone (BUSPAR) 10 MG tablet Take 1 (one) tablet (10 mg total) by mouth once Nightly . 0 Active Comment on above: Take 1 tablet by migue th every afternoon. 12 hr carBAMazepine 200 mg extended release oral tablet (3 sources) Mood Stabilizer Start: 07-05-19 End: 07-05-19 take 1 tablet by mouth twice daily carBAMazepine (TEGretol XR) 200 MG 12 hr tablet Indications: Seizure (HCC) Take 1 (one) tablet (200 mg total) by mouth 2 (two) times a day . 60 tablet 11 07/05/2020 Active clobetasol propionate 0.5 mg/ml topical cream (20 sources) Corticosteroid Start: 01-13-20 End: 09-25-19 25 clobetasol (Temovate) 0.05 % cream Apply 1 Application topically 2 times a day. 01/13/2024 Active 2 ml dicyclomine hydrochloride 10 mg/ml injection (2 sources) Anticholinergic Start: 09-13-19 19 dicyclomine (BENTYL) injection 20 mg Start: 09-12-2018 take 1 tablet by migue th every six hours for muscle spasms dicyclomine 20 MG Tab tablet Take 1 tablet by mouth every 6 hours. For abdominal spasms 20 tablet 0 09/12/2018 Active doxycycline hyclate 100 mg oral capsule (1 source) Tetracycline-class Drug Start: 09-15-2023 End: 09-25-2023 doxycycline (Vibramycin) 100 mg capsule Indications: Sebaceous cyst Take 1 capsule (100 mg) by mouth 2 times a day for 10 days. Take with at least 8 ounces (large glass) of water, do not lie down for 30 minutes after 20 capsule 0 09/15/2023 09/25/2023 Active Ethinyl Estradiol / Ferrous fumarate / Norethindrone (3 sources) Estrogen Start: 04-08-2018 End: 04-08-2019 take 1 tablet by mouth once daily norethindrone-eth inyl estradiol-iron (LOESTRIN FE 1.5/30, 28-DAY,) 1.5 mg-30 mcg (21)/75 mg (7) tablet Take 1 (one) tablet by mouth daily. 28 tablet 11 04/08/2018 04/08/2019 Active FLUoxetine 20 mg oral capsule (20 sources) Serotonin Reuptake Inhibitor Start: 11-15-2024 take 1 capsule by mouth once daily Fluoxetine 20 mg capsule Active 20 mg PO DAILY November 15, 2024 12:00am Start: 02-26-2024 End: 11-15-2024 Fluoxetine 40 mg capsule Discontinued 20 mg PO daily February 26, 2024 12:00am November 15, 2024 4:00pm Start: 02-26-2024 FLUoxetine (UT Ozac) 40 mg capsule 04/15/2024 Active Start: 09-27-2019 take 0.5 tablet by m outh once daily, then take 1 tablet by mouth FLUoxetine HCl - 20 MG Oral Tablet TAKE 0.5 tablet daily x 7 days then 1 whole tablet thereafer Quantity: 35 Refills: 0 Rich Ng DO Start : 27-Sep-2019 Active End: 05-04-2024 FLUoxetine (PROzac) 20 mg ca psule FLUoxetine HCl - 20 MG Oral Capsule Refills: 0 Active 05/04/2024 Discontinued (Med List Cleanup) FLUoxetine HCl - 20 MG Oral Capsule Quantity: 0 Refills: 0 Ordered: 22-Feb-2022 DO Active FLUoxetine HCl - 40 MG Oral Capsule Quantity: 0 Refills: 0 Ordered: 13-May-2019 DO Active Comment on above: Take 40 mg by mouth. glipiZIDE 5 mg oral tablet (20 sources) Sulfonylurea Start: 03-16-2023 End: 05-03-2024 glipiZIDE (GLUCOTROL) 5 mg tablet 10 mg two times a day. 03/16/2023 05/03/2024 Discontinued Start: 11-02-2020 take 1 tablet by migue twice daily glipiZIDE 10 MG Oral Tablet Take 1 tablet twice daily Quantity: 180 Refills: 3 Ordered: 12-Nov-2021 Jamari Byrne MD Start : 02-Nov-2020 Active Start: 01-23-2018 End: 11-15-2024 take 1 tablet by mouth twice daily Glipizide 5 MG tablet Discontinued 5 mg PO TWICE A DAY January 23, 2018 12:00am November 15, 2024 3:56pm On Hold: Comment on above: 10 mg two times a da y. Glucose (17 sources) Start: 06-07-2024 End: 07-20-2024 dextrose (GLUCOSE) 2 gram chew Use as directed if low BG 50 tablet 5 06/07/2024 07/20/2024 Discontinued Start: 06-07-2024 dextrose (GLUC OSE) 2 gram chew Use as directed if low BG 50 tablet 5 06/07/2024 Active HumuLIN N NPH Insulin KwikPen (2 sources) Start: 10-16-2024 HumuLIN N NPH Insulin KwikPen Active 90 U SC AT BEDTIME October 16, 2024 12:00am 90 units; 3 ml insulin aspart, human 100 unt/ml pen injector (1 source) Insulin Analog Start: 12-25-2023 End: 12-24-2024 inject 4 [IU] by subcutaneous injection three times daily before mealtime insulin aspart (NovoLOG Flexpen U-100 Insulin) 100 unit/mL (3 mL) pen Indications: Hyperglycemia due to diabetes mellitus (Multi) Inject 4 Units under the skin 3 times a day before meals. Take as directed per insulin instructions. 15 mL 12/25/2023 12/24/2024 Active 3 ml insulin isophane, human 100 unt/ml pen injector (20 sources) Start: 08-30-2024 End: 09-20-2024 insulin NPH (HUMULIN N NPH INSULIN KWIKPEN) 100 unit/mL (3 mL) injection pen Indications: Insulin controlled gestational diabetes mellitus (GDM) in first trimester (HCC) 90 units at bedtime 45 mL 11 09/20/2024 Active Start: 08-20-2024 End: 08-30-2024 insulin NPH (HUMULIN N NPH I NSULIN KWIKPEN) 100 unit/mL (3 mL) injection pen Indications: Insulin controlled gestational diabetes mellitus (GDM) in first trimester 85 units at bedtime 45 mL 11 08/20/2024 08/30/2024 Discontinued Start: 07-26-2024 End: 08-20-2024 insulin NPH (HUMULIN N NPH I NSULIN KWIKPEN) 100 unit/mL (3 mL) injection pen Indications: Insulin controlled gestational diabetes mellitus (GDM) in first trimester 80 units at bedtime 45 mL 11 08/03/2024 08/20/2024 Discontinued Start: 07-20-2024 End: 07-26-2024 insulin NPH (HUMULIN N NPH I NSULIN KWIKPEN) 100 unit/mL (3 mL) injection pen Indications: Insulin controlled gestational diabetes mellitus (GDM) in first trimester 75 units at bedtime 10 Each 11 07/20/2024 07/26/2024 Discontinued Start: 06-25-2024 End: 07-20-2024 insulin NPH (HUMULIN N NPH I NSULIN KWIKPEN) 100 unit/mL (3 mL) injection pen Indications: Insulin controlled gestational diabetes mellitus (GDM) in first trimester 70 units at bedtime 10 Each 06/25/2024 07/20/2024 Discontinued Start: 06-19-2024 End: 06-25-2024 insulin NPH (HUMULIN N NPH I NSULIN KWIKPEN) 100 unit/mL (3 mL) injection pen Indications: Insulin controlled gestational diabetes mellitus (GDM) in first trimester 64 units at bedtime 10 Each 06/19/2024 06/25/2024 Discontinued Start: 06-11-2024 End: 06-19-2024 insulin NPH (HUMULIN N NPH I NSULIN KWIKPEN) 100 unit/mL (3 mL) injection pen Indications: Insulin controlled gestational diabetes mellitus (GDM) in first trimester 58 units at bedtime 10 Each 06/11/2024 06/19/2024 Discontinued Start: 06-07-2024 End: 06-11-2024 insulin NPH (HUMULIN N NPH I NSULIN KWIKPEN) 100 unit/mL (3 mL) injection pen Indications: Insulin controlled gestational diabetes mellitus (GDM) in first trimester 53 units at bedtime 10 Each 06/07/2024 06/11/2024 Discontinued Start: 06-05-2024 End: 06-07-2024 insulin NPH (HUMULIN N NPH I NSULIN KWIKPEN) 100 unit/mL (3 mL) injection pen Indications: Insulin controlled gestational diabetes mellitus (GDM) in first trimester 48 units at bedtime 5 Each 06/05/2024 06/07/2024 Discontinued Start: 06-01-2024 End: 06-05-2024 insulin NPH (HUMULIN N NPH I NSULIN KWIKPEN) 100 unit/mL (3 mL) injection pen Indications: Insulin controlled gestational diabetes mellitus (GDM) in first trimester 40 units at bedtime 5 Each 11 06/01/2024 06/05/2024 Discontinued Start: 05-17-2024 End: 06-01-2024 insulin NPH (HUMULIN N NPH I NSULIN KWIKPEN) 100 unit/mL (3 mL) injection pen Indications: Insulin controlled gestational diabetes mellitus (GDM) in first trimester 32 units at bedtime 5 Each 05/17/2024 06/01/2024 Discontinued Start: 05-09-2024 End: 05-17-2024 insulin NPH (HUMULIN N NPH I NSULIN KWIKPEN) 100 unit/mL (3 mL) injection pen Indications: Insulin controlled gestational diabetes mellitus (GDM) in first trimester 25 units at bedtime 5 Each 05/09/2024 05/17/2024 Discontinued Start: 05-03-2024 End: 05-09-2024 insulin NPH (HUMULIN N NPH I NSULIN KWIKPEN) 100 unit/mL (3 mL) injection pen Indications: Insulin controlled gestational diabetes mellitus (GDM) in first trimester 15 units at bedtime 5 Each 05/03/2024 05/09/2024 Discontinued 3 ml insulin lispro 100 unt/ml pen injector (20 sources) Insulin Analog Start: 07-26-2024 End: 08-03-2024 insulin lispro (HUMALOG KWIKPEN INSULIN) 100 unit/mL Indications: Insulin controlled gestational diabetes mellitus (GDM) in first trimester (HCC) 23 -23 - 26 units prior to each meal respectively + scale (upto 100 units/day) 45 mL 11 08/03/2024 Active Start: 07-26-2024 End: 07-26-2024 insulin lispro (HUMALOG KWIK PEN INSULIN) 100 unit/mL Indications: Insulin controlled gestational diabetes mellitus (GDM) in first trimester 18 -18 - 26 units prior to each meal respectively + scale (upto 100 units/day) 15 Each 07/26/2024 07/26/2024 Discontinued Start: 07-20-2024 End: 07-26-2024 insulin lispro (HUMALOG KWIK PEN INSULIN) 100 unit/mL Indications: Insulin controlled gestational diabetes mellitus (GDM) in first trimester 18 -18 - 22 units prior to each meal respectively + scale (upto 100 units/day) 15 Each 07/20/2024 07/26/2024 Discontinued Start: 06-05-2024 End: 07-20-2024 insulin lispro (HUMALOG KWIK PEN INSULIN) 100 unit/mL Indications: Insulin controlled gestational diabetes mellitus (GDM) in first trimester 18 units prior to each meal + scale (upto 100 units/day) 15 Each 11 06/07/2024 07/20/2024 Discontinued Start: 05-17-2024 End: 06-11-2024 insulin lispro (HUMALOG KWIK PEN) 100 unit/mL 15 units prior to meals. 15 mL 5 05/25/2024 06/11/2024 Discontinued Start: 05-09-2024 End: 05-17-2024 insulin lispro (HUMALOG KWIK PEN) 100 unit/mL 12 units prior to meals. 05/09/2024 05/17/2024 Discontinued Start: 05-03-2024 End: 06-01-2024 insulin lispro (HUMALOG KWIK PEN INSULIN) 100 unit/mL Indications: Insulin controlled gestational diabetes mellitus (GDM) in first trimester 6 units prior to each meal. 5 Each 05/03/2024 06/01/2024 Discontinued Start: 02-26-2024 Insulin Lispro (Humalog Kwikpen Insulin) 100 unit/mL insulin pen Active 23 U SC .COMPLEX February 26, 2024 12:00am 23 units subcutaneously at breakfast and lunch; 26 units at dinner Start: 02-26-2024 Insulin Lispro (Humalog Kwikpen Insulin) 100 unit/mL insulin pen Active SC February 26, 2024 12:00am Start: 01-08-2024 End: 01-07-2025 inject 4 [IU] by subcutaneous injection three times daily insulin lispro (HumaLOG KwikPen Insulin) 100 unit/mL injection Indications: Hyperglycemia due to diabetes mellitus (Multi) Inject 4 Units under the skin 3 times daily (morning, midday, late afternoon). Take as directed per insulin instructions. 15 mL 3 01/08/2024 01/07/2025 Active Start: 12-13-2016 End: 01-07-2025 insulin lispro (HUMALOG KWIK PEN) 100 unit/mL Inject 4 Units subcutaneously. 12/13/2016 05/09/2024 Discontinued Start: 12-13-2016 End: 01-22-2017 Insulin Lispro (Humalog Kwik pen) 100 UNIT/ML Ml Discontinued 18 U SQ THREE TIMES A DAY December 13, 2016 12:00am January 22, 2017 8:37am insulin NPH human isophane (HUMULIN N NPH U-100 INSULIN SUBQ) (4 sources) inject 15 [IU] by subcutaneous injection once daily at bedtime insulin NPH human isophane (HUMULIN N NPH U-100 INSULIN SUBQ) Inject 15 Units under the skin once daily at bedtime. Take as directed per insulin instructions. Active metFORMIN hydrochloride 1000 mg oral tablet (20 sources) Biguanide Start: 0 End: 5 take 1 tablet by mouth twice daily metFORMIN (Glucophage) 1,000 mg tablet Indications: Hyperglycemia due to diabetes mellitus (Multi) Take 1 tablet (1,000 mg) by mouth 2 times a day. 180 tablet 3 09/30/2023 09/29/2024 Active Start: 09-27-2019 take 1 tablet by migue twice daily metFORMIN HCl - 500 MG Oral Tablet Take 1 tablet twice daily Quantity: 60 Refills: 6 Rich gN DO Start : 27-Sep-2019 Active Start: 02-22-2019 End: 05-23-2019 take 2 tablets by mouth twice daily at breakfast metFORMIN (GLUCOPHAGE-XR) 500 MG 24 hr tablet Indications: Type 2 diabetes mellitus without complication, without long-term current use of insulin (HCC) Take 2 (two) tablets (1,000 mg total) by mouth 2 (two) times a day with breakfast and lunch . 120 tablet 2 02/22/2019 Active Start: 05-05-2018 take 2 tablets by mo [facility] twice daily at breakfast metFORMIN (GLUCOPHAGE-XR) 500 MG 24 hr tablet Indications: Type 2 diabetes mellitus without complication, without long-term current use of insulin (HCC) Take 2 (two) tablets (1,000 mg total) by mouth 2 (two) times a day with breakfast and lunch . 120 tablet 2 05/05/2018 Active Start: 01-23-2018 End: 11-15-2024 Metformin 1,000 MG tablet Discontinued 500 mg PO TWICE DAILY WITH MEALS January 23, 2018 8:01am November 15, 2024 3:57pm On Hold: Start: 01-22-2017 End: 01-23-2018 take 1 tablet by mouth twice daily at mealtime Metformin 1,000 MG tablet Discontinued 1000 mg PO TWICE DAILY WITH MEALS 60 January 22, 2017 12:00am January 23, 2018 8:01am take 2 tablets by mo uth twice daily at mealtime metformin 500 MG Tab tablet take 1,000 mg by mouth 2 times daily with meals. 0 Active Comment on above: TAKE 1 TABLET (1,000 MG) BY MOUTH IN THE MORNING AND 1 TABLET (1,000 MG) BEFORE BEDTIME. 2 ml metoclopramide 5 mg/ml prefilled syringe (2 sources) Dopamine-2 Receptor Antagonist Start: 09-12-2018 metoclopramide (REGLAN) injection 10 mg Start: 09-12-2018 take 1 tablet by migue at bedtime as needed for nausea metoclopramide 10 MG Tab Take 1 tablet by mouth before meals & at bedtime as needed for Nausea / Vomiting. 20 tablet 0 09/12/2018 Active nitrofurantoin, macrocrystals 25 mg / nitrofurantoin, monohydrate 75 mg oral capsule (4 sources) Nitrofuran Antibacterial Start: 09-24-2024 End: 10-01-2024 take 1 capsule by mouth twice daily nitrofurantoin monohydrate and macrocrystal (MACROBID) 100 mg capsule Take 1 capsule by mouth two times a day for 7 days. 14 capsule 09/24/2024 10/01/2024 Active Start: 07-03-2021 take 1 capsule by mo [facility] once daily Nitrofurantoin Monohyd Macro 100 MG Oral Capsule TAKE 1 CAPSULE EVERY 12 HOURS DAILY. Quantity: 10 Refills: 0 Ordered: 03-Jul-2021 Rich Ng DO Start : 03-Jul-2021 Active OneTouch Verio Flex meter misc (1 source) Start: 08-15-2024 OneTouch Verio Flex meter misc 1 each 4 times a day. 08/15/2024 Active oseltamivir 75 mg oral capsule (1 source) Neuraminidase Inhibitor Start: 07-01-2024 End: 07-06-2024 take 1 capsule by mouth every twelve hours oseltamivir (Tamiflu) 75 mg capsule Indications: Influenza A Take 1 capsule (75 mg) by mouth every 12 hours for 5 days. 10 capsule 07/01/2024 07/06/2024 Active VIT 10-IRON FUM-FOLIC ORAL (20 sources) VIT 10-IRON FUM-FOLIC ORAL Take by mouth. Active Vit-Fe Fumarate-FA ([facility] ) 28-0.8 MG Tab (1 source) Vit-Fe Fumarate-FA ([facility] ) 28-0.8 MG Tab Take by mouth. 0 Active Completed/Discontinued Medications Medication Drug Class(es) Dates Sig (Normalized) Sig (Original) Accu-Chek Soraya Device (2 sources) Start: 09-28-2019 Accu-Chek Soraya Device USE DIRECTED Quantity: 1 Refills: 0 Rich Ng DO Start : 28-Sep-2019 Active acetaminophen 325 mg oral tablet (1 source) Start: 07-01-2024 End: 07-01-2024 take 975 mg by mouth once as needed for pain 975 mg, oral, Once, On Lori 07/01/24 at 2019, For 1 dose, If ordered PRN for pain, nurse is permitted to administer this medication for higher pain scores based on patient preference? Yes albuterol 0.833 mg/ml / ipratropium bromide 0.167 mg/ml inhalant solution (1 source) Anticholinergic, beta2-Adrenergic Agonist Start: 10-06-2018 End: 10-06-2018 ipratropium-albute rol (DUO-NEB) 0.5-2.5 mg/3 ml nebulizer solution 3 mL alogliptin 25 mg oral tablet (6 sources) Start: 01-23-2018 End: 02-26-2024 take 1 tablet by mouth once daily Alogliptin 25 MG tablet Discontinued 25 mg PO DAILY January 23, 2018 12:00am February 26, 2024 1:48pm azithromycin 1000 mg powder for oral suspension (4 sources) Macrolide Antimicrobial Start: 11-27-2021 Zithromax 1 GM Oral Packet MIX 1 PACKET IN LIQUID AND DRINK ONCE. Quantity: 1 Refills: 0 Ordered: 27-Nov-2021 Jeanie Sutton DO Start : 27-Nov-2021 Active Blood-Glucose Meter (ACCU-CHEK GUIDE ME GLUCOSE MTR) (20 sources) Start: 07-19-2024 End: 09-27-2024 Blood-Glucose Meter (ACCU-CHEK GUIDE ME GLUCOSE MTR) USE INSTRUCTED. 1 Each 1 07/19/2024 09/27/2024 Discontinued (Discontinued by Patient) Start: 07-19-2024 Blood-Glucose Meter (ACCU-CHEK GUIDE ME GLUCOSE MTR) USE INSTRUCTED. 1 Each 1 07/19/2024 Active Blood-Glucose Meter (BLOOD GLUCOSE MONITORING) monitoring kit (14 sources) Start: 06-14-2024 End: 07-19-2024 Blood-Glucose Meter (BLOOD GLUCOSE MONITORING) monitoring kit Use as instructed. 1 Kit 06/14/2024 07/19/2024 Discontinued Start: 06-14-2024 Blood-Glucose Meter (BLOOD GLUCOSE MONITORING) monitoring kit Use as instructed. 1 Kit 06/14/2024 Active blood-glucose sensor (Dexcom G6 Sensor) device (10 sources) Start: 10-08-2023 End: 05-04-2024 blood-glucose sensor (Dexcom G6 Sensor) device Indications: Hyperglycemia due to diabetes mellitus (Multi) Apply every 10 days 3 each 11 10/08/2023 05/04/2024 Discontinued (Med List Cleanup) Start: 10-08-2023 blood-glucose sensor (Dexcom G6 Sensor) device Indications: Hyperglycemia due to diabetes mellitus (Multi) Apply every 10 days 3 each 10/08/2023 Active Start: 09-09-2022 blood-glucose sensor (Dexcom G6 Sensor) device Indications: Hyperglycemia due to diabetes mellitus (CMS/HCC) Apply every 10 days 3 each 09/09/2022 Active Blood-Glucose Sensor (FREEST YLE ZOLTAN 3 PLUS SENSOR) candice (20 sources) Start: 05-03-2024 End: 07-26-2024 Blood-Glucose Sensor (FREEST YLE ZOLTAN 3 PLUS SENSOR) candice Use as instructed. Change sensors every 14 days 2 Each 5 05/03/2024 07/26/2024 Discontinued Start: 05-03-2024 Blood-Glucose Sensor (FREESTYLE ZOLTAN 3 PLUS SENSOR) candice Use as instructed. Change sensors every 14 days 2 Each 5 05/03/2024 Active Caplyta 10.5 MG Oral Capsule (1 source) Start: 05-24-2022 End: 05-24-2022 take 1 capsule by mouth four times daily Caplyta 10.5 MG Oral Capsule TAKE 1 CAPSULE 4 TIMES DAILY Quantity: 0 Refills: 0 Ordered: 24-May-2022 Jamari Byrne MD Start : 24-May-2022 End : 24-May-2022 Complete Caplyta 21 mg capsule (5 sources) Start: 12-08-2023 End: 05-04-2024 take 1 capsule by mouth once daily at bedtime Caplyta 21 mg capsule Take 1 capsule (21 mg) by mouth once daily at bedtime. 12/08/2023 05/04/2024 Discontinued (Med List Cleanup) Start: 12-08-2023 take 1 capsule by mo uth once daily at bedtime Caplyta 21 mg capsule Take 1 capsule (21 mg) by mouth once daily at bedtime. 12/08/2023 Active cephalexin 500 mg oral capsule (7 sources) Cephalosporin Antibacterial Start: 04-18-2024 End: 04-18-2024 take 1000 mg by mouth once 1,000 mg, oral, Once, On 04/18/24 at 2030, For 1 dose, Suspected Indication (Select all that apply): Urinary Tract Infection, Type of Therapy: Definitive, No Cultures, Type of Urinary Tract Infection: Complicated, Indications: Urinary Tract Infection Start: 04-18-2024 End: 04-25-2024 take 1 capsule by mouth four times daily cephalexin (Keflex) 500 mg capsule Indications: Urinary tract infection in mother during first trimester of ([facility]-HCC) Take 1 capsule (500 mg) by mouth 4 times a day for 7 days. 28 capsule 04/18/2024 04/25/2024 Active Start: 11-16-2020 take 1 capsule by mo uth three times daily Cephalexin 500 MG Oral Capsule TAKE 1 CAPSULE 3 TIMES DAILY UNTIL GONE. Quantity: 21 Refills: 0 Ordered: 16-Nov-2020 Rich Ng DO Start : 16-Nov-2020 Active Start: 01-23-2018 End: 02-26-2024 take 1 capsule by mouth twice daily Cephalexin 500 MG capsule Discontinued 500 mg PO TWICE A DAY January 23, 2018 12:00am February 26, 2024 1:45pm End: 09-12-2018 take 1 capsule by mouth every six hours cephALEXin 250 MG Cap capsule Take 250 mg by mouth every 6 hours. 0 09/12/2018 Discontinued ciprofloxacin 3 mg/ml / dexamethasone 1 mg/ml otic suspension (1 source) Corticosteroid, Quinolone Antimicrobial Start: 03-28-2017 End: 09-12-2018 ciprofloxacin-dexamethasone 0.3-0.1 % Suspension otic suspension Apply 4-5 drops to the affected ear(s). Leave in the ear canal for 15-20 minutes. Apply twice daily for 7 days. 7.5 mL 0 03/28/2017 09/12/2018 Discontinued clotrimazole 10 mg/ml topical cream (1 source) Azole Antifungal Start: 03-12-2017 End: 09-12-2018 apply 40 g topically twice daily as needed clotrimazole 1 % Cream Indications: Intertrigo Apply small amount Topical two times daily 7-14 days PRN 40 g 0 03/12/2017 09/12/2018 Discontinued Dexcom G4 [place] instrument technician apprentice (Dexcom G6 Core Loader) misc (19 sources) Start: 03-17-2023 End: 05-04-2024 Dexcom G4 [place] instrument technician apprentice (Dexcom G6 Core Loader) misc Indications: Hyperglycemia due to diabetes mellitus (Multi) Use as instructed 1 each 03/17/2023 05/04/2024 Discontinued (Med List Cleanup) Start: 03-17-2023 Dexcom G4 plat [place] instrument technician apprentice (Dexcom G6 Core Loader) misc Indications: Hyperglycemia due to diabetes mellitus (Multi) Use as instructed 1 each 03/17/2023 Active Start: 03-17-2023 Dexcom G4 plat inum instrument technician apprentice (Dexcom G6 Core Loader) misc Indications: Hyperglycemia due to diabetes mellitus (CMS/HCC) Use as instructed 1 each 0 03/17/2023 Active Start: 09-09-2022 End: 05-04-2024 Dexcom G4 [place] instrument technician apprentice (Dexcom G6 Core Loader) misc Indications: Hyperglycemia due to diabetes mellitus (Multi) Use as instructed 1 each 09/09/2022 05/04/2024 Discontinued (Med List Cleanup) Start: 09-09-2022 Dexcom G4 plat inum instrument technician apprentice (Dexcom G6 Core Loader) misc Indications: Hyperglycemia due to diabetes mellitus (Multi) Use as instructed 1 each 09/09/2022 Active Start: 09-09-2022 Dexcom G4 plat inum instrument technician apprentice (Dexcom G6 Core Loader) misc Indications: Hyperglycemia due to diabetes mellitus (CMS/HCC) Use as instructed 1 each 0 09/09/2022 Active Dexcom G4 [place] transmitt er (Dexcom G6 Transmitter) device (12 sources) Start: 05-09-2023 End: 05-04-2024 Dexcom G4 [place] transmitt er (Dexcom G6 Transmitter) device Indications: Hyperglycemia due to diabetes mellitus (Multi) Change as directed 1 each 3 05/09/2023 05/04/2024 Discontinued (Med List Cleanup) Start: 05-09-2023 Dexcom G4 plat inum transmitter (Dexcom G6 Transmitter) device Indications: Hyperglycemia due to diabetes mellitus (Multi) Change as directed 1 each 3 05/09/2023 Active Start: 05-09-2023 Dexcom G4 plat inum transmitter (Dexcom G6 Transmitter) device Indications: Hyperglycemia due to diabetes mellitus (CMS/HCC) Change as directed 1 each 3 05/09/2023 Active Start: 12-13-2022 End: 05-09-2023 Dexcom G4 [place] transmitt er (Dexcom G6 Transmitter) device Indications: Hyperglycemia due to diabetes mellitus (CMS/HCC) Apply every 10 days 1 each 11 12/13/2022 05/09/2023 Discontinued (Reorder) Start: 12-13-2022 Dexcom G4 plat inum transmitter (Dexcom G6 Transmitter) device Indications: Hyperglycemia due to diabetes mellitus (CMS/HCC) Apply every 10 days 1 each 11 12/13/2022 Active Start: 09-09-2022 End: 12-13-2022 Dexcom G4 [place] transmitt er (Dexcom G6 Transmitter) device Indications: Hyperglycemia due to diabetes mellitus (CMS/HCC) Apply every 10 days 1 each 11 09/09/2022 12/13/2022 Discontinued (Reorder) DEXCOM G6 SENSOR candice (9 sources) Start: 05-23-2023 End: 05-07-2024 DEXCOM G6 SENSOR candice APPLY EVERY 10 DAYS 05/23/2023 05/07/2024 Discontinued Start: 05-23-2023 DEXCOM G6 SENS OR candice APPLY EVERY 10 DAYS 05/23/2023 Active Start: 05-23-2023 DEXCOM G6 SENS OR candice APPLY EVERY 10 DAYS 0 05/23/2023 Active Comment on above: APPLY EVERY 10 DAYS DEXCOM G6 TRANSMITTER candice (9 sources) Start: 05-27-2023 End: 05-07-2024 DEXCOM G6 TRANSMITTER candice CHANGE DIRECTED 05/27/2023 05/07/2024 Discontinued Start: 05-27-2023 DEXCOM G6 KRAUS SMITTER candice CHANGE DIRECTED 05/27/2023 Active Start: 05-27-2023 DEXCOM G6 KRAUS SMITTER candice CHANGE DIRECTED 0 05/27/2023 Active Comment on above: CHANGE DIRECTED 1 ml diphenhydrAMINE hydrochloride 50 mg/ml cartridge (17 sources) Histamine-1 Receptor Antagonist Start: 09-12-2018 End: 09-12-2018 diphenhydrAMINE (BENADRYL) injection 50 mg End: 09-06-2024 diphenhydrAMINE (Benadryl Al lergy) 25 mg tablet Benadryl 25 MG TABS Refills: 0 Active 09/06/2024 Discontinued (Med List Cleanup) Benadryl 25 MG T ABS Quantity: 0 Refills: 0 Ordered: 04-Jan-2022 DO Active doxylamine succinate 10 mg / pyridoxine hydrochloride 10 mg delayed release oral tablet (7 sources) Start: 05-20-2024 End: 06-11-2024 doxylamine-pyridoxine, vit B6, (DICLEGIS) 10-10 mg TbEC Take 2 tabs at night. If symptoms persist after 2 days add one tab in the morning. If symptoms still persist after 4 days add a tab mid-day 100 tablet 3 05/20/2024 06/11/2024 Discontinued 0.5 ml dulaglutide 3 mg/ml auto-injector (20 sources) GLP-1 Receptor Agonist Start: 11-13-2021 End: 05-03-2024 inject 3 mg by subcutaneous injection every week dulaglutide (Trulicity) 1.5 mg/0.5 mL pen injector injection Indications: Hyperglycemia due to diabetes mellitus (Multi) Inject 3 mg under the skin 1 (one) time per week. 2 mL 3 09/30/2023 12/25/2023 Discontinued (Med List Cleanup) Start: 11-13-2021 inject 0.75 mg by martinez bcutaneous injection every week Trulicity 0.75 MG/0.5ML Subcutaneous Solution Pen-injector INJECT 0.75 MG Weekly Quantity: 1 Refills: 11 Ordered: 13-Nov-2021 Jamari Byrne MD Start : 13-Nov-2021 Active Comment on above: Inject 3 mg subcutan eously. erythromycin 0.005 mg/mg ophthalmic ointment (2 sources) Macrolide, Macrolide Antimicrobial Start: 12-27-19 End: 01-05-20 Erythromycin 5 MG/GM Ophthalmic Ointment APPLY A SMALL AMOUNT OF OINTMENT TO AFFECTED EYE(S) 4 TIMES DAILY AND AT BEDTIME. Quantity: 15 Refills: 11 Ordered: 26-Dec-2020 Rich Ng DO Start : 26-Dec-2020 End : 04-Jan-2021 Complete famotidine 20 mg oral tablet (1 source) Histamine-2 Receptor Antagonist Start: 05-25-20 End: 06-08-20 take 1 tablet by mouth twice daily Pepcid 20 mg oral tablet ; 1 tab(s) orally 2 times a day x 15 days Quantity: 30 Refills: 0 Ordered: 25-May-2019 Milly Vargas Start: 25-May-2019 End: 08-Jun-2019 Generic Substitution Allowed Comments: It is very important that you take or use this exactly as directed. Do not skip doses or discontinue unless directed by your doctor.Obtain medical advice before taking any non-prescription drugs as some may affect the action of this medication. Comment on above: It is very important that you take or use this exactly as directed. Do not skip doses or discontinue unless directed by your doctor.Obtain medical advice before taking any non-prescription drugs as some may affect the action of this medication. fluconazole 150 mg oral tablet (10 sources) Azole Antifungal Start: 02-26-20 End: 10-17-19 Fluconazole 150 mg tablet Discontinued 150 mg PO Every 3 Days 2 0 February 26, 2024 12:00am October 16, 2024 5:45pm may repeat second dose 72 hrs after first dose if symptoms persist Start: 07-11-2023 End: 05-03-2024 fluconazole (DIFLUCAN) 150 m g tablet Indications: Vaginal yeast infection Take 1 tablet today, then a 2nd tablet in 72 hours, and 3rd tablet in another 72 hours. 3 tablet 07/11/2023 05/03/2024 Discontinued Start: 08-17-2022 fluconazole (D IFLUCAN) 150 MG tablet Indications: Yeast vaginitis Take 1 tablet by mouth once today then repeat in 5 days. . 2 tablet 0 08/17/2022 Active Comment on above: Take 1 tablet today, then a 2nd tablet in 72 hours, and 3rd tablet in another 72 hours. halobetasol propionate 0.5 mg/ml topical cream (3 sources) Corticosteroid Start: 2023 End: 2024 halobetasol (UltraVATE) 0.05 % cream Indications: Necrobiosis lipoidica Apply topically 2 times a day. 15 g 1 07/10/2023 12/25/2023 Discontinued (Med List Cleanup) hydrocortisone 5 mg/ml topical cream (14 sources) Corticosteroid Start: 2024 End: 2024 hydrocortisone 0.5 % cream Apply to affected area two times a day. 28.4 g 09/24/2024 11/03/2024 Discontinued ibuprofen 600 mg oral tablet (3 sources) Nonsteroidal Anti-inflammatory Drug Start: 2016 End: 2024 take 1 tablet by mouth every six hours as needed for pain Ibuprofen 600 MG tablet Discontinued 600 mg PO EVERY 6 HOURS as needed for Pain 60 January 22, 2017 12:00am October 16, 2024 5:46pm 3 ml insulin glargine 100 unt/ml pen injector (20 sources) Insulin Analog Start: 2022 End: 2023 inject 10 [IU] by subcutaneous injection once daily at bedtime insulin glargine (Lantus Solostar U-100 Insulin) 100 unit/mL (3 mL) pen Indications: Hyperglycemia due to diabetes mellitus (CMS/HCC) Inject 10 Units under the skin once daily at bedtime. Take as directed per insulin instructions. 15 mL 1 03/17/2023 03/16/2024 Active Start: 03-17-2023 End: 10-16-2024 Insulin Glargine (Lantus Deya ostar U-100 Insulin) 100 unit/mL (3 mL) insulin pen Discontinued U SC February 26, 2024 12:00am October 16, 2024 5:46pm Start: 03-17-2023 End: 09-29-2024 inject 10 [IU] by subcutaneous injection once daily at bedtime insulin glargine (Lantus Solostar U-100 Insulin) 100 unit/mL (3 mL) pen Indications: Hyperglycemia due to diabetes mellitus (Multi) Inject 10 Units under the skin once daily at bedtime. Take as directed per insulin instructions. 15 mL 1 09/30/2023 09/29/2024 Active Start: 12-13-2022 End: 12-13-2023 inject 10 [IU] by subcutaneous injection once daily at bedtime insulin glargine (Lantus U-100 Insulin) 100 unit/mL injection Indications: Hyperglycemia due to diabetes mellitus (CMS/HCC) Inject 10 Units under the skin once daily at bedtime. Take as directed per insulin instructions. 9 mL 3 12/13/2022 03/17/2023 Discontinued (Side effects) Insulin Nph And Regular Human (6 sources) Insulin Start: 12-13-2016 End: 01-22-2017 Insulin Nph And Regular Agusto n (Humulin 70/30 Kwikpen) 100 UNIT/ML Insuln.Pen Discontinued 22 U SQ WITH BREAKFAST December 13, 2016 12:00am January 22, 2017 8:37am Start: 12-13-2016 End: 01-22-2017 Insulin Nph And Regular Agusto n (Humulin 70/30 Kwikpen) 100 UNIT/ML Insuln.Pen Discontinued 48 U SQ AT BEDTIME December 13, 2016 12:00am January 22, 2017 8:37am ketorolac tromethamine 4 mg/ml ophthalmic solution (20 sources) Nonsteroidal Anti-inflammatory Drug, Cyclooxygenase Inhibitor Start: 07-22-2024 End: 09-27-2024 keTORolac Tromethamine (ACLUAR LS) 0.4 % drop 07/22/2024 09/27/2024 Discontinued (Discontinued by Patient) take 1 drop(s) into the eye(s) four times daily ketorolac (Acular) 0.4 % ophthalmic solution Administer 1 drop into both eyes 4 times a day. Prescribed by LEEANNE LANGFORD Active lisinopril 2.5 mg oral tablet (9 sources) Angiotensin Converting Enzyme Inhibitor Start: 02-23-2019 End: 12-08-2019 take 1 tablet by mouth once daily lisinopril (PRINIVIL,ZESTRIL) 2.5 MG tablet Indications: Type 2 diabetes mellitus without complication, without long-term current use of insulin (HCC) Take 1 (one) tablet (2.5 mg total) by mouth daily . 30 tablet 2 02/23/2019 12/08/2019 Discontinued (Discontinued by another clinician) Start: 01-23-2018 End: 02-26-2024 take 1 tablet by mouth once daily Lisinopril (Prinivil) 5 MG tablet Discontinued 5 mg PO DAILY January 23, 2018 12:00am February 26, 2024 1:48pm Lumateperone (3 sources) Start: 02-26-2024 End: 10-16-2024 take 1 capsule by mouth once daily Lumateperone (Caplyta) 21 mg capsule Discontinued 21 mg PO daily February 26, 2024 12:00am October 16, 2024 5:49pm Start: 02-26-2024 take 1 capsule by mo [facility] once daily Lumateperone (Caplyta) 21 mg capsule Active 21 mg PO daily February 26, 2024 12:00am lurasidone hydrochloride 20 mg oral tablet (12 sources) Atypical Antipsychotic Start: 05-19-2023 End: 05-03-2024 take 2 tablets by mouth once daily at bedtime lurasidone (LATUDA) 20 mg tablet Take 40 mg by mouth daily at bedtime. 05/19/2023 05/03/2024 Discontinued Start: 10-15-2022 End: 12-25-2023 take 1 tablet by mouth once daily at bedtime lurasidone (Latuda) 20 mg tablet Take 1 tablet (20 mg) by mouth once daily at bedtime. 10/15/2022 12/25/2023 Discontinued (Med List Cleanup) Comment on above: Take 40 mg by mouth daily at bedtime. metFORMIN hydrochloride 1000 mg / SITagliptin 50 mg oral tablet (1 source) Biguanide, Dipeptidyl Peptidase 4 Inhibitor Start: 021 End: take 1 tablet by mouth twice daily at mealtime Janumet 50-1000 MG Oral Tablet TAKE 1 TABLET TWICE DAILY WITH MEALS. Quantity: 60 Refills: 6 Ordered: 20-Sep-2020 Hernandez WEBSTER Rich Start : 19-Sep-2020 End : 02-Nov-2020 Complete metroNIDAZOLE 500 mg oral tablet (19 sources) Nitroimidazole Antimicrobial Start: 025 End: 025 take 1 tablet by mouth twice daily metroNIDAZOLE (FLAGYL) 500 mg tablet Take 1 tablet by mouth two times a day for 7 days. 14 tablet 09/27/2024 10/04/2024 Start: 05-10-2024 End: 05-17-2024 take 1 tablet by mouth twice daily metroNIDAZOLE (FLAGYL) 500 mg tablet Indications: Bacterial vaginosis Take 1 tablet by mouth two times a day for 7 days. 14 tablet 05/10/2024 05/17/2024 Active Start: 04-28-2024 End: 05-04-2024 metroNIDAZOLE (Metrogel) 0.7 5 % (37.5mg/5 gram) vaginal gel Indications: Bacterial vaginosis Insert 1 Application into the vagina once daily at bedtime for 5 days. Insert 1 applicatorful vaginally at bedtime for 5 days 70 g 04/28/2024 05/04/2024 Discontinued (Med List Cleanup) Start: 04-19-2024 End: 04-28-2024 take 1 tablet by mouth every twelve hours metroNIDAZOLE (Flagyl) 500 mg tablet Take 1 tablet (500 mg) by mouth every 12 hours. 04/19/2024 04/28/2024 Discontinued (Side effects) Start: 11-26-2021 take 4 tablets by mouth once m etroNIDAZOLE 500 MG Oral Tablet TAKE 4 TABLET Once Quantity: 4 Refills: 0 Ordered: 26-Nov-2021 Jeanie Sutton DO Start : 26-Nov-2021 Active mupirocin 0.02 mg/mg topical ointment (2 sources) RNA Synthetase Inhibitor Antibacterial Start: 11-02-2020 Mupirocin 2 % External Ointment APPLY A SMALL AMOUNT 3 TIMES DAILY DIRECTED. Quantity: 1 Refills: 0 Ordered: 02-Nov-2020 Rich Ng DO Start : 02-Nov-2020 Active naproxen 500 mg oral tablet (4 sources) Nonsteroidal Anti-inflammatory Drug Start: 12-26-2020 take 1 tablet by mouth every twelve hours as needed Naproxen 500 MG Oral Tablet TAKE 1 TABLET BY MOUTH EVERY 12 HOURS NEEDED Quantity: 20 Refills: 1 Ordered: 26-Dec-2020 Rich Ng DO Start : 26-Dec-2020 Active omeprazole 20 mg delayed release oral capsule (6 sources) Proton Pump Inhibitor Start: 09-19-2020 take 1 capsule by mouth once daily Omeprazole 20 MG Oral Capsule Delayed Release TAKE 1 CAPSULE Daily Quantity: 30 Refills: 4 Ordered: 19-Sep-2020 Rich Ng DO Start : 19-Sep-2020 Active pimecrolimus 10 mg/ml topical cream (20 sources) Calcineurin Inhibitor Immunosuppressant Start: 01-13-2024 End: 09-27-2024 pimecrolimus (ELIDEL) 1 % cream PLEASE SEE ATTACHED FOR DETAILED DIRECTIONS 07/14/2024 09/27/2024 Discontinued (Discontinued by Patient) pioglitazone 15 mg oral tablet (2 sources) Peroxisome Proliferator Receptor alpha Agonist, Peroxisome Proliferator Receptor gamma Agonist, Thiazolidinedione Start: 05-24-2022 End: 12-13-2022 take 1 tablet by mouth once daily Pioglitazone HCl - 15 MG Oral Tablet Take 1 tablet daily Quantity: 30 Refills: 5 Ordered: 24-May-2022 Jamari Byrne MD Start : 24-May-2022 Active prednisoLONE acetate 10 mg/ml ophthalmic suspension (20 sources) Corticosteroid Start: 07-21-2024 End: 09-27-2024 prednisoLONE acetate (PRED FORTE) 1 % ophthalmic suspension 07/21/2024 09/27/2024 Discontinued (Discontinued by Patient) take 1 drop(s) into the eye(s) four times daily prednisoLONE acetate (Pred-Forte) 1 % ophthalmic suspension Administer 1 drop into both eyes 4 times a day. Active 28-0.8 MG Oral Tablet (6 sources) Start: 05-13-2019 take 1 tablet by mouth once daily 28-0.8 MG Oral Tablet TAKE 1 TABLET DAILY. Quantity: 30 Refills: 11 Juno Blackburn DO Start : 13-May-2019 Active 28-0.8 MG Oral Tablet (6 sources) Start: 05-13-2019 take 1 tablet by mouth once daily 28-0.8 MG Oral Tablet TAKE 1 TABLET DAILY. Quantity: 30 Refills: 11 Ordered: 13-May-2019 Juno Blackburn DO Start : 13-May-2019 Active vitamin, iron-folic, () 27 mg iron-800 mcg folic acid tablet (2 sources) Start: 05-13-2019 End: 12-25-2023 take 1 tablet by mouth once daily vitamin, iron-folic, () 27 mg iron-800 mcg folic acid tablet Take 1 tablet by mouth once daily. OTC 05/13/2019 12/25/2023 Discontinued (Med List Cleanup) Start: 05-13-2019 take 1 tablet by migue th once daily vitamin, iron-folic, () 27 mg iron-800 mcg folic acid tablet Take 1 tablet by mouth once daily. OTC 0 05/13/2019 Active 24 hr propranolol hydrochloride 80 mg extended release oral capsule (3 sources) beta-Adrenergic Keeley Start: 02-22-2019 End: 12-08-2019 take 1 capsule by mouth once daily propranolol (INDERAL LA) 80 MG 24 hr capsule Indications: Intractable migraine without aura and without status migrainosus Take 1 (one) capsule (80 mg total) by mouth daily . 30 capsule 2 02/22/2019 12/08/2019 Discontinued (Discontinued by another clinician) QUEtiapine 100 mg oral tablet (3 sources) Atypical Antipsychotic Start: 01-23-2018 End: 02-26-2024 take 1 tablet by mouth once daily Quetiapine 100 MG tablet Discontinued 100 mg PO DAILY January 23, 2018 12:00am February 26, 2024 1:48pm regular insulin, human 100 unt/ml injectable solution (1 source) Insulin Start: 10-04-2018 End: 10-04-2018 insulin regular (HumuLIN R, NovoLIN R) injection 10 Units risperiDONE 0.25 mg oral tablet (6 sources) Atypical Antipsychotic End: 12-08-2019 risperiDONE (RISPERDAL) 0.25 MG tablet Take 0.25 to 0.5 mg (1 to 2 tablets) at bedtime as tolerated . 0 12/08/2019 Discontinued (Discontinued by another clinician) risperiDONE TABS Refills: 0 DO Active risperiDONE TABS Refills: 0 Active 1000 ml sodium chloride 9 mg /ml injection (5 sources) Start: 10-04-2018 End: 10-05-2018 sodium chloride 0.9% (NS) tammy megha 1,000 mL Start: 10-04-2018 End: 10-05-2018 sodium chloride (PF) (NS) fl ush 5 mL Start: 09-12-2018 End: 09-12-2018 sodium chloride 0.9% IV solu tion 1,000 mL sulfamethoxazole 800 mg / trimethoprim 160 mg oral tablet (1 source) Dihydrofolate Reductase Inhibitor Antibacterial, Sulfonamide Antimicrobial Start: 12-30-2020 take 1 tablet by mouth twice daily Sulfamethoxazole-Trimethoprim 800-160 MG Oral Tablet TAKE 1 TABLET BY MOUTH TWICE DAILY Quantity: 20 Refills: 0 Ordered: 30-Dec-2020 DO Start : 30-Dec-2020 Complete Trulicity 3 MG/0.5ML Subcutaneous Solution Pen-injector (1 source) Start: 11-13-2021 inject 3 mg by subcutaneous injection every week Trulicity 3 MG/0.5ML Subcutaneous Solution Pen-injector Inject 3 mg weekly Quantity: 1 Refills: 5 Ordered: 24-May-2022 Jamari Byrne MD Start : 13-Nov-2021 Active valACYclovir 500 mg oral tablet (9 sources) Herpesvirus Nucleoside Analog DNA Polymerase Inhibitor, Herpes Simplex Virus Nucleoside Analog DNA Polymerase Inhibitor, Herpes Zoster Virus Nucleoside Analog DNA Polymerase Inhibitor Start: 12-25-2021 End: 12-25-2023 take 1 tablet by mouth once daily valACYclovir (Valtrex) 500 mg tablet Take 1 tablet (500 mg) by mouth once daily. 12/25/2021 12/25/2023 Discontinued (Med List Cleanup) Problems Active Problems Problem Classification Problem Date Documented Date Episodic/Chronic Abdominal pain (4 sources) Lower abdominal pain; Translations: [Unspecified abdominal pain] Onset: 05-21-2024 Episodic Alcohol-related disorders (20 sources) History of alcohol abuse; Translations: [Alcohol abuse, in remission] Onset: 05-07-2024 05-07-2024 Chronic Anxiety disorders (20 sources) Generalized anxiety disorder; Translations: [Mixed anxiety and depressive disorder] Onset: 07-30-2017 07-30-2017 Chronic Asthma (20 sources) Asthma; Translations: [Unspecified asthma, uncomplicated] Onset: 07-21-2017 07-21-2017 Chronic Contraceptive and procreative management (20 sources) Patient encounter status; Translations: [Unspecified contraceptive management] Onset: 11-02-2024 06-15-2024 Episodic Deficiency and other anemia (9 sources) Anemia; Translations: [Anemia, unspecified] Episodic Developmental disorders (1 source) Intellectual disability; Translations: [Unspecified intellectual disabilities] Onset: 07-30-2017 07-30-2017 Chronic Diabetes mellitus with complications (20 sources) Hyperglycemia due to diabetes mellitus; Translations: [Diabetes mellitus without mention of complication, type II or unspecified type, uncontrolled] Onset: 07-11-2022 12-13-2022 Chronic Diabetes mellitus without complication (20 sources) Diabetes mellitus; Translations: [Type 2 diabetes mellitus] Onset: 06-23-2016 Resolved: 07-14-2017 03-12-2017 Chronic Diabetes or abnormal glucose tolerance complicating ; childbirth; or the puerperium (20 sources) and type 2 diabetes mellitus; Translations: [Pre-existing type 2 diabetes mellitus, in , first trimester] Onset: 10-21-2016 Resolved: 07-11-2023 12-03-2016 Chronic Disorders of teeth and jaw (1 source) Toothache; Translations: [Other specified disorders of teeth and supporting structures] 08-19-2023 Episodic Early or threatened labor (20 sources) False labor before 37 completed weeks of gestation; Translations: [False labor before 37 completed weeks of gestation, third trimester] Onset: 12-26-2016 Resolved: 07-11-2023 07-11-2023 Episodic Esophageal disorders (20 sources) Gastroesophageal reflux disease; Translations: [Esophageal reflux] Onset: 07-11-2022 07-11-2022 Chronic Essential hypertension (20 sources) Hypertensive disorder; Translations: [Unspecified essential hypertension] Onset: 07-14-2017 03-12-2017 Chronic Headache; including migraine (7 sources) Refractory migraine without aura; Translations: [Migraine without aura, intractable, without status migrainosus] Onset: 02-22-2019 02-22-2019 Chronic Immunizations and screening for infectious disease (2 sources) Contact with and (suspected) exposure to other viral communicable diseases; Translations: [Contact with or exposure to other viral diseases] Onset: 10-25-2024 10-25-2024 Episodic Inflammation; infection of eye (except that caused by tuberculosis or sexually transmitteddisease) (4 sources) External hordeolum; Translations: [Hordeolum externum] Episodic Inflammatory diseases of female pelvic organs (10 sources) Bacterial vaginosis; Translations: [Acute vaginitis] Onset: 04-28-2024 04-28-2024 Episodic Influenza (3 sources) Influenza due to Influenza A virus; Translations: [Influenza due to other identified influenza virus with other respiratory manifestations] Onset: 07-01-2024 07-01-2024 Episodic Intestinal infection (12 sources) Intestinal trichomoniasis; Translations: [Intestinal trichomoniasis] Episodic Menstrual disorders (15 sources) Secondary amenorrhea; Translations: [Secondary amenorrhea] Onset: 08-17-2022 Chronic Mood disorders (20 sources) Depressive disorder; Translations: [Recurrent major depressive episodes, mild ] Onset: 07-14-2017 Resolved: 08-15-2017 03-12-2017 Chronic Mycoses (4 sources) Candidiasis of vagina; Translations: [Yeast vaginitis] Episodic Nausea and vomiting (2 sources) Nausea; Translations: [Nausea] Episodic Osteoarthritis (3 sources) Osteoarthritis; Translations: [Unspecified osteoarthritis, unspecified site] 02-26-2024 Chronic Other aftercare (2 sources) Follow-up status; Translations: [Encounter to discuss test results] Episodic Other complications of ; puerperium affecting management of mother (3 sources) Suspected disorder; Translations: [Maternal care for (suspected) abnormality and damage, unspecified, fetus 1] 08-24-2024 Episodic Other complications of ; puerperium affecting management of mother (1 source) Maternal care for (suspected) abnormality and damage, unspecified, fetus 1; Translations: [Maternal care for (suspected) abnormality and damage, unspecified, fetus 1 (HCC)] Onset: 10-12-2024 Episodic Other complications of (20 sources) Maternal obesity complicating , childbirth and the puerperium, antepartum; Translations: [Obesity complicating , first trimester] Onset: 05-07-2024 05-07-2024 Chronic Other complications of (2 sources) Obesity complicating , first trimester; Translations: [Obesity affecting in first trimester, unspecified obesity type (HCC)] Onset: 08-10-2024 Chronic Other complications of (20 sources) High risk ; Translations: [Supervision of high risk , unspecified, first trimester] Onset: 05-07-2024 05-03-2024 Episodic Other complications of (1 source) Abdominal pain in ; Translations: [Other specified related conditions, first trimester] 05-21-2024 Episodic Other complications of (20 sources) Complication occurring during ; Translations: [ complication before (HCC)] Onset: 09-14-2024 09-13-2024 Episodic Other complications of (2 sources) Pruritus of ; Translations: [Diseases of the skin and subcutaneous tissue complicating , third trimester] 11-05-2024 Episodic Other complications of (2 sources) Supervision of high risk , unspecified, third trimester; Translations: [Supervision of high risk in third trimester (HCC)] Onset: 11-04-2024 Episodic Other complications of (1 source) Diseases of the skin and subcutaneous tissue complicating , third trimester; Translations: [ pruritus, third trimester (HCC)] Onset: 11-05-2024 Episodic Other complications of (1 source) Supervision of high risk , unspecified, second trimester; Translations: [Supervision of high risk in second trimester (HCC)] Onset: 09-24-2024 Episodic Other complications of (2 sources) Supervision of high risk , unspecified, first trimester; Translations: [Encounter for supervision of high risk in first trimester, antepartum (HCC)] Onset: 05-07-2024 Episodic Other complications of (1 source) Other specified related conditions, second trimester; Translations: [Other specified related conditions, second trimester] Onset: 09-29-2024 Episodic Other congenital anomalies (10 sources) Congenital anomaly of finger; 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), including shoulder girdle] Onset: 10-28-2016 07-14-2017 Chronic Other congenital anomalies (20 sources) Chromosomal disorder; 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, unspecified] Onset: 05-07-2024 05-07-2024 Chronic Other congenital anomalies (2 sources) Chromosomal abnormality, unspecified; Translations: [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[facility])] Onset: 05-26-2024 Chronic Other connective tissue disease (1 source) Neurological finding; Translations: [Seizure-like activity] Episodic Other endocrine disorders (6 sources) Menarche; Translations: [History of Menarche] Chronic Other female genital disorders (4 sources) Other specified noninflammatory disorders of vagina; Translations: [Other specified noninflammatory disorders of vagina] Onset: 08-17-2022 Episodic Other female genital disorders (1 source) Vulval irritation; Translations: [Other specified noninflammatory disorders of vulva and perineum] 07-23-2024 Episodic Other female genital disorders (4 sources) Irritable uterus; Translations: [Other specified noninflammatory disorders of uterus] 09-25-2024 Episodic Other female genital disorders (1 source) Pruritus of vagina; Translations: [Other specified noninflammatory disorders of vagina] 11-18-2024 Episodic Other infections; including parasitic (6 sources) Infection by Trichomonas; Translations: [Trichomoniasis, unspecified] Episodic Other infections; including parasitic (1 source) Personal history of other infectious and parasitic diseases; Translations: [History of herpes genitalis] Onset: 11-25-2024 Episodic Other inflammatory condition of skin (1 source) Pruritus, unspecified; Translations: [ pruritus, third trimester (HCC)] Onset: 11-05-2024 Episodic Other nutritional; endocrine; and metabolic disorders (9 sources) Developmental delay; Translations: [Developmental Delay] Onset: 10-28-2016 07-14-2017 Chronic Other screening for suspected conditions (not mental disorders or infectious disease) (11 sources) Cancer cervix screening status; Translations: [Screening for malignant neoplasms of cervix] Onset: 06-15-2024 05-07-2024 Episodic Residual codes; unclassified (1 source) Obstructive sleep apnea syndrome; Translations: [MG (obstructive sleep apnea)] Chronic Residual codes; unclassified (20 sources) Past history of procedure; Translations: [Other postprocedural status] Episodic Comment on above: 01/31/2019; Residual codes; unclassified (6 sources) Unprotected sexual intercourse; Translations: [High-risk sexual behavior] Episodic Residual codes; unclassified (1 source) Weeks of gestation of not specified; Translations: [Weeks of gestation of not specified] Onset: 04-14-2024 Episodic Residual codes; unclassified (1 source) Gestation period, 7 weeks; Translations: [Less than 8 weeks gestation of ] 05-07-2024 Episodic Residual codes; unclassified (1 source) Gestation period, 10 weeks; Translations: [10 weeks gestation of ] 05-26-2024 Episodic Residual codes; unclassified (1 source) Gestation period, 13 weeks; Translations: [13 weeks gestation of ] 06-15-2024 Episodic Residual codes; unclassified (2 sources) Gestation period, 17 weeks; Translations: [17 weeks gestation of ] 07-13-2024 Episodic Residual codes; unclassified (3 sources) Gestation period, 21 weeks; Translations: [21 weeks gestation of ] 08-10-2024 Episodic Residual codes; unclassified (1 source) Gestation period, 25 weeks; Translations: [25 weeks gestation of ] 09-07-2024 Episodic Residual codes; unclassified (1 source) Procedure not done; Translations: [Procedure and treatment not carried out, unspecified reason] 09-24-2024 Episodic Residual codes; unclassified (5 sources) Gestation period, 27 weeks; Translations: [27 weeks gestation of ] 09-24-2024 Episodic Residual codes; unclassified (3 sources) Gestation period, 29 weeks; Translations: [29 weeks gestation of ] 10-05-2024 Episodic Residual codes; unclassified (5 sources) Gestation period, 31 weeks; Translations: [31 weeks gestation of ] 10-16-2024 Episodic Residual codes; unclassified (3 sources) Gestation period, 33 weeks; Translations: [33 weeks gestation of ] 11-02-2024 Episodic Residual codes; unclassified (2 sources) Gestation period, 34 weeks; Translations: [34 weeks gestation of ] 11-08-2024 Episodic Residual codes; unclassified (3 sources) Gestation period, 35 weeks; Translations: [35 weeks gestation of ] 11-15-2024 Episodic Residual codes; unclassified (1 source) Gestation period, 36 weeks; Translations: [36 weeks gestation of ] 11-25-2024 Episodic Residual codes; unclassified (1 source) Gestation period, 37 weeks; Translations: [37 weeks gestation of ] 12-02-2024 Episodic Residual codes; unclassified (1 source) 38 weeks gestation of ; Translations: [38 weeks gestation of (HCC)] Onset: 12-06-2024 Episodic Residual codes; unclassified (1 source) 37 weeks gestation of ; Translations: [37 weeks gestation of (HCC)] Onset: 12-02-2024 Episodic Residual codes; unclassified (1 source) 36 weeks gestation of ; Translations: [36 weeks gestation of (HCC)] Onset: 11-25-2024 Episodic Residual codes; unclassified (1 source) 29 weeks gestation of ; Translations: [29 weeks gestation of (HCC)] Onset: 11-18-2024 Episodic Residual codes; unclassified (1 source) 35 weeks gestation of ; Translations: [35 weeks gestation of (HCC)] Onset: 11-15-2024 Episodic Residual codes; unclassified (1 source) 34 weeks gestation of ; Translations: [34 weeks gestation of (HCC)] Onset: 11-11-2024 Episodic Residual codes; unclassified (1 source) 33 weeks gestation of ; Translations: [33 weeks gestation of (HCC)] Onset: 11-05-2024 Episodic Residual codes; unclassified (1 source) 32 weeks gestation of ; Translations: [32 weeks gestation of (HCC)] Onset: 10-28-2024 Episodic Residual codes; unclassified (1 source) 31 weeks gestation of ; Translations: [31 weeks gestation of (HCC)] Onset: 10-18-2024 Episodic Residual codes; unclassified (1 source) 27 weeks gestation of ; Translations: [27 weeks gestation of (HCC)] Onset: 09-24-2024 Episodic Residual codes; unclassified (1 source) Procedure and treatment not carried out, unspecified reason; Translations: [Procedure not carried out] Onset: 09-24-2024 Episodic Residual codes; unclassified (1 source) 25 weeks gestation of ; Translations: [25 weeks gestation of (HCC)] Onset: 09-08-2024 Episodic Residual codes; unclassified (1 source) Gestation period, 38 weeks; Translations: [38 weeks gestation of ] 12-06-2024 Episodic Schizophrenia and other psychotic disorders (9 sources) Schizophrenia; Translations: [Unspecified schizophrenia, unspecified] Chronic Skin and subcutaneous tissue infections (11 sources) Infection of skin; Translations: [Unspecified local infection of skin and subcutaneous tissue] Episodic Substance-related disorders (1 source) Tobacco dependence caused by cigarettes; Translations: [Nicotine dependence, cigarettes, with other nicotine-induced disorders] 05-04-2024 Chronic Suicide and intentional self-inflicted injury (2 sources) Suicidal thoughts; Translations: [Suicidal ideation] 10-23-2020 Episodic Syncope (8 sources) Loss of consciousness; Translations: [Other alteration of consciousness] Episodic Unclassified (1 source) Unknown / UNK(Unknown) Onset: 11-29-2017 Unclassified (2 sources) Unspecified lump in the left breast, upper outer quadrant; Translations: [UNS LUMP IN LT BREAST UP] Onset: 11-21-2017 Unclassified (9 sources) Finding relating to psychosocial functioning; Translations: [Problem related to psychosocial circumstances] Onset: 07-30-2017 07-30-2017 Unclassified (9 sources) Intellectual disability; Translations: [Intellectual disability] Onset: 07-30-2017 07-30-2017 Unclassified (1 source) Finding of sensation of abdomen; Translations: [Abdominal cramps] Unclassified (2 sources) EVAL 10-23-2020 Comment on above: EVAL Unclassified (1 source) 3 MONTH FUV 09-19-2020 Comment on above: 3 MONTH FUV Unclassified (2 sources) Acute candidiasis of vulva and vagina; Translations: [Acute candidiasis of vulva and vagina] Onset: 08-17-2022 Unclassified (20 sources) [facility] Education - COMMON Onset: 05-07-2024 05-07-2024 Unclassified (20 sources) Education - [place] Onset: 05-07-2024 05-07-2024 Unclassified (2 sources) complication before (HCC); Translations: [ complication before (HCC)] Onset: 09-14-2024 Urinary tract infections (2 sources) Urinary tract infectious disease; Translations: [Urinary tract infection, site not specified] Episodic Viral infection (3 sources) Herpetic vulvovaginitis; 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 vulvovaginitis] Onset: 04-18-2024 04-18-2024 Chronic Viral infection (19 sources) Herpes simplex; Translations: [Herpes simplex without mention of complication] Onset: 07-11-2022 Resolved: 07-11-2022 07-11-2022 Episodic Past or Other Problems Problem Classification Problem Date Documented Date Episodic/Chronic Adjustment disorders (10 sources) Grief finding; Translations: [Adjustment disorder with depressed mood] Onset: 05-22-2018 Resolved: 02-22-2019 05-22-2018 Chronic Administrative/social admission (20 sources) Relationship problems; Translations: [Follow-up status] Onset: 07-30-2017 07-30-2017 Episodic Bacterial infection; unspecified site (20 sources) Chlamydial infection; Translations: [Unspecified chlamydial infection] Onset: 04-28-2024 05-10-2024 Episodic Diabetes mellitus without complication (2 sources) Hyperglycemia; Translations: [Hyperglycemia] Episodic Diabetes or abnormal glucose tolerance complicating ; childbirth; or the puerperium (20 sources) Gestational diabetes mellitus; Translations: [Gestational diabetes mellitus in , unspecified control] Onset: 12-20-2016 Resolved: 07-11-2023 07-11-2023 Episodic Epilepsy; convulsions (20 sources) Seizure; Translations: [Neurological finding] Onset: 07-11-2022 Resolved: 07-11-2022 07-11-2022 Episodic Genitourinary symptoms and ill-defined conditions (20 sources) History of recurrent urinary tract infection; Translations: [Personal history of urinary (tract) infections] Onset: 05-07-2024 05-07-2024 Episodic Other complications of (20 sources) Gestational proteinuria; Translations: [Gestational proteinuria, third trimester] Onset: 12-20-2016 Resolved: 07-11-2023 07-11-2023 Episodic Other complications of (20 sources) Urinary tract infection in ; Translations: [Unspecified infection of urinary tract in , first trimester] Onset: 04-19-2024 Resolved: 10-04-2024 04-18-2024 Episodic Other complications of (20 sources) Herpes simplex type 2 infection; Translations: [Other viral diseases complicating , unspecified trimester] Onset: 04-19-2024 04-19-2024 Episodic Other complications of (20 sources) History of delivery of macrosomal ; Translations: [Supervision of with other poor reproductive or obstetric history, unspecified trimester] Onset: 05-07-2024 05-07-2024 Episodic Other complications of (20 sources) Maternal tobacco use; Translations: [Smoking (tobacco) complicating , first trimester] Onset: 05-07-2024 05-07-2024 Episodic Other complications of (20 sources) Vomiting of , unspecified; Translations: [Unspecified vomiting of , unspecified as to episode of care or not applicable] Onset: 05-07-2024 Resolved: 10-04-2024 05-07-2024 Episodic Other complications of (20 sources) Rubella non-immune; Translations: [Supervision of other high risk pregnancies, unspecified trimester] Onset: 05-10-2024 05-10-2024 Episodic Other complications of (2 sources) Other specified related conditions, first trimester; Translations: [Other specified related conditions, first trimester (HHS-HCC)] Onset: 05-21-2024 Episodic Other complications of (2 sources) Unspecified infection of urinary tract in , first trimester; Translations: [Unspecified infection of urinary tract in , first trimester (HHS-HCC)] Onset: 04-18-2024 Episodic Other complications of (2 sources) Supervision of with other poor reproductive or obstetric history, unspecified trimester; Translations: [H/O macrosomia in infant in prior , currently ([facility])] Onset: 05-07-2024 Episodic Other complications of (1 source) Smoking (tobacco) complicating , first trimester; Translations: [Tobacco smoking complicating in first trimester ([facility])] Onset: 05-07-2024 Episodic Other complications of (2 sources) Other viral diseases complicating , unspecified trimester; Translations: [Herpes simplex type 2 (HSV-2) infection affecting , antepartum, unspecified trimester ([facility])] Onset: 07-13-2024 Episodic Other female genital disorders (20 sources) Vaginal discharge; Translations: [Leukorrhea, not specified as infective] Onset: 05-07-2024 Resolved: 07-13-2024 Episodic Other infections; including parasitic (20 sources) History of sexually transmitted disease; Translations: [Personal history of other infectious and parasitic diseases] Onset: 05-07-2024 Resolved: 10-04-2024 05-07-2024 Episodic Other infections; including parasitic (20 sources) H/O: infectious disease; Translations: [Personal history of other infectious and parasitic diseases] Onset: 05-07-2024 05-07-2024 Episodic Other lower respiratory disease (20 sources) H/O: asthma; Translations: [Personal history of other diseases of the respiratory system] Onset: 05-07-2024 05-07-2024 Episodic Other nutritional; endocrine; and metabolic disorders (1 source) Developmental delay; Translations: [Unspecified lack of expected normal physiological development in childhood] Onset: 10-28-2016 07-14-2017 Episodic Other conditions (20 sources) Large for gestation age fetus; Translations: [Other heavy for gestational age ] Onset: 12-23-2016 Resolved: 07-11-2023 07-11-2023 Episodic Other and delivery including normal (20 sources) ; Translations: [ state, incidental] Onset: 12-12-2016 Resolved: 07-11-2023 07-11-2023 Episodic Comment on above: BABY: 01/20/2017 37 W EEKS VAGINAL FEMAL 10 LBS 2 OZ; Other skin disorders (13 sources) Necrobiosis lipoidica; 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, not elsewhere classified] Onset: 07-10-2023 4 Episodic Other skin disorders (2 sources) Sebaceous cyst of skin; Translations: [Sebaceous cyst] Onset: 09-15-2023 09-15-2023 Episodic Other skin disorders (2 sources) Necrobiosis lipoidica, not elsewhere classified; 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, not elsewhere classified] Onset: 07-10-2023 Episodic Other skin disorders (1 source) Sebaceous cyst; Translations: [Sebaceous cyst] Onset: 09-15-2023 Episodic Other upper respiratory infections (1 source) Viral upper respiratory tract infection; Translations: [Viral upper respiratory infection] Episodic Polyhydramnios and other problems of amniotic cavity (20 sources) Polyhydramnios; Translations: [Polyhydramnios, unspecified trimester, not applicable or unspecified] Onset: 01-01-2017 Resolved: 07-11-2023 07-11-2023 Episodic Residual codes; unclassified (10 sources) Noncompliance with medication regimen; Translations: [Patient's other noncompliance with medication regimen] Onset: 05-05-2018 05-05-2018 Episodic Residual codes; unclassified (20 sources) H/O: ; Translations: [Personal history of other complications of , childbirth and the puerperium] Onset: 05-07-2024 Resolved: 07-13-2024 05-07-2024 Episodic Residual codes; unclassified (20 sources) H/O: miscarriage; Translations: [Personal history of other genital system and obstetric disorders] Onset: 05-07-2024 Resolved: 10-04-2024 05-07-2024 Episodic Comment on above: 02/20/2018; Residual codes; unclassified (7 sources) First trimester ; Translations: [Less than 8 weeks gestation of ] Onset: 04-28-2024 04-28-2024 Episodic Residual codes; unclassified (20 sources) History of hemorrhage; Translations: [Personal history of other complications of , childbirth and the puerperium] Onset: 05-07-2024 05-07-2024 Episodic Residual codes; unclassified (20 sources) History of pre-eclampsia; Translations: [Personal history of other complications of , childbirth and the puerperium] Onset: 05-07-2024 05-07-2024 Episodic Residual codes; unclassified (20 sources) Family history of autism; Translations: [Family history of other mental and behavioral disorders] Onset: 05-07-2024 05-07-2024 Episodic Residual codes; unclassified (2 sources) Less than 8 weeks gestation of ; Translations: [Less than 8 weeks gestation of ([facility])] Onset: 04-28-2024 Episodic Residual codes; unclassified (1 source) Personal history of other complications of , childbirth and the puerperium; Translations: [History of pre-eclampsia] Onset: 06-15-2024 Episodic Residual codes; unclassified (1 source) 21 weeks gestation of ; Translations: [21 weeks gestation of ] Onset: 08-10-2024 Episodic Residual codes; unclassified (1 source) 13 weeks gestation of ; Translations: [13 weeks gestation of ] Onset: 06-15-2024 Episodic Screening and history of mental health and substance abuse codes (20 sources) H/O: depression; Translations: [Personal history of other mental and behavioral disorders] Onset: 12-12-2016 12-12-2016 Episodic Unclassified (1 source) LOWER ABD PAIN/VAGINAL PAIN Onset: 11-30-2017 Unclassified (9 sources) Patient encounter status; Translations: [Contraception management] Unclassified (1 source) Acute candidiasis of vulva and vagina; Translations: [Acute candidiasis of vulva and vagina] Onset: 08-17-2022 Unclassified (5 sources) Onset: 04-28-2024 Resolved: 05-04-2024 04-28-2024 NEGATED: Highlighted row has not occurred!Residual codes; unclassified (18 sources) Disease Episodic Results Test Name Value Interpretation Reference Range Facility Bedside Glucoseon 12-07-2024 FINGERSTICK GLU 99 mg/dL Normal 74-106 [facility] Comment on above: Result Comment: ELLEN ZAMBRANO OF PATIENT CARE PER NURSING PROTOCOL Performed By: #### M 100.6862 #### [facility] [address] [place], [place], [id number] CBC W/Diff, Automatedon 07-0 Absolute Lymph 1.98 X10 3/uL Normal 0.83-4.51 [facility] Comment on above: Performed By: #### L 100.0100, BTS #### [facility] [address] [place], [address] Absolute Neut 6.3 X10 3/uL Normal 2.0-7.7 [facility] Comment on above: Performed By: #### L 100.0100, BTS #### [facility] [address] [place], [address] Basophils/100 WBC (Bld) 0.4 % Normal 0-1 [facility] Comment on above: Performed By: #### L 100.0100, BTS #### [facility] [address] [place], [address] Eosinophils/100 WBC (Bld) 1.0 % Normal 0-5 [facility] Comment on above: Performed By: #### L 100.0100, BTS #### [facility] [address] [place], [address] Erythrocyte distribution width (RBC) [Ratio] 13.4 % Normal 11.6-14.6 [facility] Comment on above: Performed By: #### L 100.0100, BTS #### [facility] [address] [place], [address] Hematocrit (Bld) [Volume fraction] 36.0 % Low 37-47 [facility] Comment on above: Performed By: #### L 100.0100, BTS #### [facility] [address] [place], [address] Hemoglobin (Bld) [Mass/Vol] 12.1 g/dL Normal 12.0-15.0 [facility] Comment on above: Performed By: #### L 100.0100, BTS #### [facility] [address] [place], [address] IG% 0.600 Normal 0.0-0.9 [facility] Comment on above: Result Comment: IG% - Immature Granulocytes (promyelocytes, myelocytes and metamyelocytes) > 1% indicates that a LEFT SHIFT is Present. Performed By: #### L 100.0100, BTS #### [facility] [address] [place], [address] Lymphocytes/100 WBC (Bld) 22.0 % Normal 19-41 [facility] Comment on above: Performed By: #### L 100.0100, BTS #### [facility] [address] [place], [address] MCH (RBC) [Entitic mass] 28.5 pg Normal 27.0-32.0 [facility] Comment on above: Performed By: #### L 100.0100, BTS #### [facility] [address] [place], [address] MCHC (RBC) [Mass/Vol] 33.6 g/dL Normal 32-36 [facility] Comment on above: Performed By: #### L 100.0100, BTS #### [facility] [address] [place], [address] MCV (RBC) [Entitic vol] 84.7 fL Normal 81-99 [facility] Comment on above: Performed By: #### L 100.0100, BTS #### [facility] [address] [place], [address] Monocytes/100 WBC (Bld) 6.0 % Normal 0-10 [facility] Comment on above: Performed By: #### L 100.0100, BTS #### [facility] [address] [place], [address] Neutrophils/100 WBC (Bld) 70.0 % Normal 47-70 [facility] Comment on above: Performed By: #### L 100.0100, BTS #### [facility] [address] [place], [address] Nucleated RBC (Bld) [#/Vol] 0 10*3/uL Normal 0-5 [facility] Comment on above: Performed By: #### L 100.0100, BTS #### [facility] [address] [place], [address] Platelet mean volume (Bld) [Entitic vol] 9.7 fL Normal 6.2-12.0 [facility] Comment on above: Performed By: #### L 100.0100, BTS #### [facility] [address] [place], [address] Platelets (Bld) [#/Vol] 230 10*3/uL Normal 150-450 [facility] Comment on above: Performed By: #### L 100.0100, BTS #### [facility] [address] [place], [address] RBC (Bld) [#/Vol] 4.25 10*6/uL Normal 4.2-5.4 [facility] Comment on above: Performed By: #### L 100.0100, BTS #### [facility] [address] [place], [address] RDW SD 41.1 fl Normal 35.1-43.9 [facility] Comment on above: Performed By: #### L 100.0100, BTS #### [facility] [address] [place], [address] WBC (Bld) [#/Vol] 9.0 10*3/uL Normal 4.4-11.0 [facility] Comment on above: Performed By: #### L 100.0100, BTS #### [facility] [address] [place], [address] H AND P Exam - OB/GYNon 07-0 H&P Exam - [facility] Medical Records Department [address] [place] [address] H P Exam - [employer] 12/07/24 1223 MR#: [id number] Acct: [id number] Name: MELISSA BYRNE Rep #: [id number] : 1995 29 From: William Gramajo MD PCP: Dr. Jamari Byrne MD Status:ADM IN [facility] - General General Date of Admission: 12/07/24 HPI Narrative MELISSA BYRNE, is a 29 F who presents with contractions and was scheduled for induction today. Maternal Data Information ADA Calculator Estimated Delivery Date Method Current WG Current Estimate 12/18/24 Manual 38w 3d PFSH PFSH Medical History (Updated 12/07/24 @ 13:[address] William Gramajo MD) Seizures Asthma Osteoarthritis Diabetes Medical History no medical history Home Medications ???Medication ???Instructions ???Recorded ???Last Taken ???Type buspirone 15 mg tablet 15 mg PO QDAY anxiety 02/26/2407/03 History insulin lispro 100 unit/mL 23 unit subcut .COMPLEX 02/26/24 0 12/07/24 History subcutaneous pen (Humalog KwikPen pregestational diabetes (U-100) Insulin) HumuLIN N NPH Insulin KwikPen 90 units subcut QHS type II 12/06/24 History diabetes aspirin 81 mg tablet,delayed 81 mg PO DAILY 10/16/24 12/06/24 History release (Adult Aspirin Regimen) acyclovir 400 mg tablet 400 mg PO BID HSV 11/15/24 5 History albuterol sulfate 90 mcg/actuation 1 - 2 puff inhalation PRN PRN 11/01/24 15:57 History aerosol inhaler shortness of breath or wheezing fluoxetine 20 mg capsule 20 mg PO DAILY anxiety 11/15/24 History Allergy/AdvReac Type Severity Reaction Status Date / Time aripiprazole (From Abilify) AdvReac Other Verified 11/15/24 15:53 metoclopramide (From Reglan) AdvReac Other Verified 11/15/24 15:53 ondansetron (From Zofran) AdvReac Vomiting Verified 11/15/24 15:53 quetiapine (From Seroquel) AdvReac Other Verified 11/15/24 15:53 sertraline (From Zoloft) AdvReac Other Verified 11/15/24 15:53 Family History Other Heart disease Hyperlipemia Surgical History History of dilation and curettage History of oral surgery History of cholecystectomy Surgical History no surgical history Social History Smoking Status: Current every day smoker tobacco type: cigarettes alcohol intake: never substance use type: does not use History Elective abortions Hx Para 1 Spontaneous abortions Hx # Term Pregnancies Ectopic pregnancies Hx # Pregnancies Multiple births # of living children NST FHR Rate Baby A Baseline: 130 Variability:: Moderate Accelerations:: 15 x 15 Decelerations:: None Uterine Activity:: Irregular Vital Signs Vital Signs Vital Signs: Weight Weight: 211 lb 10.3 oz Body Mass Index (BMI) 38.7 Physical Exam Const alert, oriented x3 and no apparent distress GI soft to palpation, non-tender and non-distended Inspection: gravid external exam normal Narrative: cvx - 3/70/-2, AROM clear fluid Labs Labs Labs: Blood Type A POSITIVE Antibody Screen NEGATIVE Hct 36.0 % (37-47) L Hgb 12.1 g/dL (12.0-15.0) Group B Strep DNA Negative (Negative) Rhogam given: No Assessment Plan (1) Type 2 diabetes mellitus affecting , antepartum: COMMENT: @ 38 3 (2) History of herpes genitalis: (3) Obesity affecting : QUALIFIERS: Trimester: third trimester Obesity type affecting : unspecified obesity Qualified Code(s): O99.213 - Obesity complicating , third trimester (4) 38 weeks gestation of : PLAN: Plan Admit to L D. Expectant management and will augment with pitocin if needed. GBS positive - pcn per protocol. Pain - epidural as desired. EFW - less than 4500g and patient with adequate pelvis. Routine care. 12/07/24 1342 Cosigner Signature (if applicable): CC: Dr. Jamari Byrne MD; Dr. William Gramajo MD Signed Normal [facility] Syphilis Antibodieson 2024 Syphilis Abs Non-Reactive Normal Nonreactive [facility] Comment on above: Performed By: #### L 509.8002 #### [facility] [address] [place], [address] Type AND Screenon 12-07-2024 Ab SCREEN GEL Negative Normal [facility] Comment on above: Order Comment: Labor Performed By: #### L 100.0100, BTS #### [facility] [address] [place], [address] Ur Drg Scn w/Rflx AMPH Confi rmon 12-07-2024 DRUG CONFIRM Normal [facility] Comment on above: Order Comment: . Result Comment: CONF IRMATORY TESTING FOR ALL POSITIVE URINE DRUG SCREEN RESULTS WILL ONLY BE SENT OUT UPON PHYSICIAN ORDER. [facility]IST[facility] Urine Drug Screen methods provide only preliminary analytical test results. A more specific alternate chemical method must be used in order to obtain a confirmed analytical result. Gas chromatography/mass spectrometery (GC/MS) is the preferred confirmatory method. Clinical consideration and professional judgement should be applied to any drug of abuse test result, particularly when preliminary positive results are used. URINE TCA TESTING MUST BE ORDERED SEPARATELY. USE TEST MNEMONIC: [facility] Performed By: #### L 505.5002, L505.5000 #### [facility] [address] [place], [address] VISTA UDS PH Normal [facility] Comment on above: Order Comment: . Performed By: #### L 505.5002, L505.5000 #### [facility] [address] [place], [address] Urine Drug Screen (VISTA)on 12-07-2024 BARBITIURATES Normal < 200 ng/mL [facility] Comment on above: Order Comment: . Performed By: #### L 505.5002, L505.5000 #### [facility] [address] [place], [address] BENZODIAZIPINE Normal < 200 ng/mL [facility] Comment on above: Order Comment: . Performed By: #### L 505.5002, L505.5000 #### [facility] [address] [place], [address] BUP Ur Drug Scr Normal < 200 ng/mL [facility] Comment on above: Order Comment: . Performed By: #### L 505.5002, L505.5000 #### [facility] [address] [place], [address] COCAINE Normal < 300 ng/mL [facility] Comment on above: Order Comment: . Performed By: #### L 505.5002, L505.5000 #### [facility] [address] [place], [address] Fentanyl Normal [facility] Comment on above: Order Comment: . Performed By: #### L 505.5002, L505.5000 #### [facility] [address] [place], [address] METHADONE Normal < 300 ng/mL [facility] Comment on above: Order Comment: . Performed By: #### L 505.5002, L505.5000 #### [facility] [address] [place], [address] OPIATES Normal < 300 ng/mL [facility] Comment on above: Order Comment: . Performed By: #### L 505.5002, L505.5000 #### [facility] [address] [place], [address] OXYCODONE Normal < 100 ng/mL [facility] Comment on above: Order Comment: . Performed By: #### L 505.5002, L505.5000 #### [facility] [address] [place], [address] PCP Normal < 25 ng/mL [facility] Comment on above: Order Comment: . Performed By: #### L 505.5002, L505.5000 #### [facility] [address] [place], [address] THC Normal < 50 ng/mL [facility] Comment on above: Order Comment: . Performed By: #### L 505.5002, L505.5000 #### [facility] [address] [place], [address] CNPNon 12-06-2024 CNPN Normal [facility] Biophysical profile.tammy dy movement USon 12-06-2024 [facility] Radiology Study observation (narrative) [facility] URINE OB DIP B/Oon 5 Glucose Ql (U) 100 mg/dL Neg [facility] Interpretation and review of laboratory results Normal [facility] Protein.monoclonal (U) [Mass/Vol] Negative Neg mg/dL [facility] CNPNon 12-01-2024 CNPN Normal [facility] Biophysical profile.tammy dy movement USon 11-30-2024 [facility] Radiology Study observation (narrative) [facility] CNPNon 11-25-2024 CNPN Normal [facility] URINE OB DIP B/Oon 5 Glucose Ql (U) Negative Neg mg/dL [facility] Interpretation and review of laboratory results Normal [facility] Protein.monoclonal (U) [Mass/Vol] Negative Neg mg/dL [facility] Biophysical profile.tammy dy movement USon 11-22-2024 [facility] Radiology Study observation (narrative) [facility] OB Triage Physician Noteon 0 11-19-2024 OB Triage Physician Note [facility] Medical Records Department [address] [place] [address] OB Triage Physician Note 11/19/24 0712 MR#: [id number] Acct: [id number] Name: MELISSA BYRNE Rep #: [id number] : 1995 29 From: Whit Patel MD PCP: Dr. Jamari Byrne MD Status:DEP CLI Y Location: [facility] HPI - General General Date of Service: 11/15/24 HPI Narrative MELISSA BYRNE, is a 29 F @ 35.2 weeks who presents c/o contractions - r/o labor Maternal Data Information ADA Calculator Estimated Delivery Date Method Current WG Current Estimate 12/18/24 Manual 35w 6d PFSH PFS Medical History Seizures Asthma Osteoarthritis Diabetes Home Medications ???Medication ???Instructions ???Recorded ???Last Taken ???Type buspirone 15 mg tablet 15 mg PO QDAY 02/26/24 11/15/24 10 :00 History insulin lispro 100 unit/mL 23 unit subcut .COMPLEX 02/26/24 0 11/15/24 13:00 History subcutaneous pen (Humalog KwikPen pregestational diabetes (U-100) Insulin) HumuLIN N NPH Insulin KwikPen 90 units subcut QHS type II 11/14/24 22:00 History diabetes aspirin 81 mg tablet,delayed 81 mg PO DAILY 10/16/24 11/14/24 2 2:00 History release (Adult Aspirin Regimen) acyclovir 400 mg tablet 400 mg PO BID 11/15/24 11/15/24 10 :00 History albuterol sulfate 90 mcg/actuation 1 - 2 puff inhalation PRN PRN 11/01/24 15:57 History aerosol inhaler shortness of breath or wheezing fluoxetine 20 mg capsule 20 mg PO DAILY 11/15/24 11/15/24 1 0:00 History Allergy/AdvReac Type Severity Reaction Status Date / Time aripiprazole (From Abilify) AdvReac Other Verified 11/15/24 15:53 metoclopramide (From Reglan) AdvReac Other Verified 11/15/24 15:53 ondansetron (From Zofran) AdvReac Vomiting Verified 11/15/24 15:53 quetiapine (From Seroquel) AdvReac Other Verified 11/15/24 15:53 sertraline (From Zoloft) AdvReac Other Verified 11/15/24 15:53 Family History Other Heart disease Hyperlipemia Surgical History History of dilation and curettage History of oral surgery History of cholecystectomy Social History Smoking Status: Current every day smoker alcohol intake: never substance use type: does not use History Elective abortions Hx Para 0 Spontaneous abortions Hx # Term Pregnancies Ectopic pregnancies Hx # Pregnancies Multiple births # of living children NST FHR Rate Baby A Baseline: 135 Variability:: Moderate Accelerations:: 15 x 15 Decelerations:: None NST Reactive:: Yes FHR Category:: Category I Uterine Activity:: irregular Assessment Plan (1) False labor: (2) Obesity affecting : (3) 35 weeks gestation of : PLAN: Plan @ 35.2 weeks - false labor 1) nst reactive, false labor 2) Dc home 11/19/24 0715 D> Date Whit Patel MD Cosigner Signature (if applicable): Date CC: Dr Whit Patel MD; Dr. Jamari Byrne MD Signed Normal [facility] BACTERIAL VAGINOSIS NAATon 0 11-18-2024 Lactobacillus crispatus+gasseri+dez senii + Gardnerella vaginalis + Atopobium vaginae rRNA SUMIT+probe Ql (Vag fld) Not detected Normal Not detected [facility] Comment on above: Order Comment: Speci men Type: SWABOrdering Facility: [facility] Address: [address] [place] [address] Performed By: #### NAGEL MARSHALL ####[facility] LABCLIA [id number] [place] [address] [place] JOSUÉ/TRICHOMONAS NAATon 0 11-18-2024 C. glabrata RNA SUMIT+probe Ql (Vag fld) Not detected Normal Not detected [facility] Comment on above: Order Comment: Speci men Type: SWABOrdering Facility: [facility] Address: [address] [place] [address] Performed By: #### B VAMP, CVTV ####[facility] LABCLIA [id number] [place] [address] [place] Josué sp DNA SUMIT+probe Ql (Vag fld) Not detected Normal Not detected [facility] Comment on above: Order Comment: Speci men Type: SWABOrdering Facility: [facility] Address: [address] [place] [address] Result Comment: The Josué species group target includes C. albicans, C. tropicalis, C. parapsilosis, and C. dubliniensis. Performed By: #### B VAMP, CVTV ####[facility] LABCLIA [id number] [place] [address] [place] T. vaginalis DNA SUMIT+probe Ql (Unsp spec) Not detected Normal Not detected [facility] Comment on above: Order Comment: Speci men Type: SWABOrdering Facility: [facility] Address: [address] [place] [address] Performed By: #### B VAMP, CVTV ####[facility] LABCLIA [id number] [place] [address] [place] Urine Cultureon 11-17-2024 [facility] Comments: urine in l ab Mixed Gram Positive Organisms [place] Count 11,000-25,000 MIXC Mixed contaminants. Submit a new specimen if indicated. Normal [facility] Comment on above: Performed By: #### M 100.2200 #### [facility] [address] [place], [address] CNPNon 11-16-2024 CNPN Normal [facility] Amorphous sediment detection in urine sediment by light microscopyOrdered By: Whit Patel on 11-15-2024 Amorphous sediment LM Ql (Urine sed) 1+ [facility] Bilirubin Test strip Ql (U)O rdered By: Whit Patel on 11-15-2024 Bilirubin Ql (U) Negative Negative [facility] Calcium oxalate crystals det ection in urine sediment by light microscopyOrdered By: Whit Patel on 11-15-2024 Calcium oxalate crystals LM Ql (Urine sed) 2+ /hpf [facility] Biophysical profile.tammy dy movement USon 11-15-2024 [facility] Radiology Study observation (narrative) [facility] Ketones Test strip Ql (U)Ord ered By: Whit Patel on 11-15-2024 Ketones Ql (U) 5 mg/dl High Negative [facility] Microscopic analysis of urin e for red blood cells (RBC)Ordered By: Whit Patel on 11-15-2024 Microscopic analysis of urine for red blood cells (RBC) 0-5 SEEN /hpf 0-5 [facility] Mucus LM Ql (Urine sed)Order ed By: Whit Patel on 11-15-2024 Mucus Ql (Urine sed) 0 SEEN /hpf [facility] Nitrite Test strip Ql (U)Ord ered By: Whit Patel on 11-15-2024 Nitrite Ql (U) Negative Negative [facility] Protein Test strip Ql (U)Ord ered By: Wiht Patel on 11-15-2024 Protein Ql (U) 15 mg/dl High Negative [facility] Squamous epithelial cells de tection in urine sediment by light microscopyOrdered By: Whit Patel on 11-15-2024 Epithelial cells.squamous LM Ql (Urine sed) 5-10 SEEN /hpf 5-10 [facility] URINE OB DIP B/Oon Glucose Ql (U) Negative Neg mg/dL [facility] Interpretation and review of laboratory results Normal [facility] Protein.monoclonal (U) [Mass/Vol] Negative Neg mg/dL [facility] Urinalysis, Completeon 11-15 AMORPHOUS 1+ Normal [facility] Comment on above: Order Comment: CLEAN CATCH Performed By: #### L 400.0001 #### [facility] [address] [place], [address] BACTERIA 2+ /hpf Normal None Seen [facility] Comment on above: Order Comment: CLEAN CATCH Performed By: #### L 400.0001 #### [facility] [address] [place], [address] CA OX CRYSTAL 2+ /hpf Normal [facility] Comment on above: Order Comment: CLEAN CATCH Performed By: #### L 400.0001 #### [facility] [address] [place], [address] EPI,SQUAMOUS 5-10 SEEN Normal 5-10 [facility] Comment on above: Order Comment: CLEAN CATCH Performed By: #### L 400.0001 #### [facility] [address] [place], [address] RBC 0-5 SEEN Normal 0-5 [facility] Comment on above: Order Comment: CLEAN CATCH Performed By: #### L 400.0001 #### [facility] [address] [place], [address] WBC 0-5 SEEN Normal 0-5 [facility] Comment on above: Order Comment: CLEAN CATCH Performed By: #### L 400.0001 #### [facility] [address] [place], [address] Mucus Ql (Urine sed) 0 SEEN Normal [facility] Comment on above: Order Comment: CLEAN CATCH Performed By: #### L 400.0001 #### [facility] [address] [place], [address] Urine clarityOrdered By: Solomon on 11-15-2024 Clarity (U) Clear Clear [facility] Urine color determinationOrd ered By: Whit Patel on 11-15-2024 Color (U) Yellow Yellow [facility] Urine glucose detectionOrder ed By: Whit Patel on 11-15-2024 Glucose Ql (U) 1000 mg/dl High Normal [facility] Urine leukocyte esterase det ection by dipstickOrdered By: Whit Schulte on 11-15-2024 Leukocyte esterase Test strip Ql (U) Negative Negative [facility] Urine pHOrdered By: Whit Collado on 11-15-2024 pH (U) 6.0 [pH] 5.0 - 8.0 [facility] Urine sediment bacteria coun t by microscopy (number/high power field)Ordered By: Whit Patel on 11-15-2024 Bacteria LM.HPF (Urine sed) [#/Area] 2 /[HPF] None Seen [facility] Urine specific gravity measu rementOrdered By: Whit Patel on 11-15-2024 Specific gravity (U) [Rel density] 1.030 1.002-1.030 [facility] Urine urobilinogen measureme ntOrdered By: Whit Patel on 11-15-2024 Urobilinogen Ql (U) 1 mg/dl High Normal [facility] White blood cell countOrdere d By: Whit Patel on 11-15-2024 White blood cell count 0-5 SEEN /hpf 0-5 [facility] URINE OB DIP B/Oon Glucose Ql (U) Negative Neg mg/dL [facility] Protein.monoclonal (U) [Mass/Vol] Negative Neg mg/dL [facility] Biophysical profile.tammy dy movement USon 11-08-2024 [facility] Radiology Study observation (narrative) [facility] BILE ACIDS FRACT BLDon 11-05 CHENODEOXYCHOLIC ACID 0.8 umol/L Normal 0.0-3.4 [facility] Comment on above: Order Comment: Speci men Type: BLOOD SPECIMENOrdering Facility: [facility] Address: [address] [place] [address] Performed By: #### B ILE ####[facility] HOSPITALIA [id number] [place] [address] CHOLIC ACID 0.8 umol/L Normal 0.0-1.9 [facility] Comment on above: Order Comment: Speci men Type: BLOOD SPECIMENOrdering Facility: [facility] Address: [address] [place] [address] Performed By: #### B ILE ####[facility] LABORATORIESCLIA [id number] [place] [address] DEOXYCHOLIC ACID 1.8 umol/L Normal 0.0-2.5 [facility] Comment on above: Order Comment: Speci men Type: BLOOD SPECIMENOrdering Facility: [facility] Address: [address] [place] [address] Performed By: #### B ILE ####[facility] LABORATORIESCLIA [id number] [place] [address] TOTAL BILE ACIDS 3.7 umol/L Normal 0.0-7.0 [facility] Comment on above: Order Comment: Speci men Type: BLOOD SPECIMENOrdering Facility: [facility] Address: [address] [place] [address] Result Comment: INTE RPRETIVE INFORMATION: Bile Acids, Fractionated and TotalThis test was developed and its performance characteristicsdetermined by [employer]. It has not been cleared orapproved by the [place] Food and Drug Administration. This test wasperformed in a CLIA certified laboratory and is intended forclinical purposes.Performed By: [facility] [place] [id number] Director: Cristofer Voss MD, PhDCLIA Number: [id number] Performed By: #### B ILE ####[facility] LABORATORIESCLIA [id number] [place] [address] URSODEOXYCHOLIC ACID 0.3 umol/L Normal 0.0-1.0 [facility] Comment on above: Order Comment: Speci men Type: BLOOD SPECIMENOrdering Facility: [facility] Address: [address] [place] [address] Performed By: #### B ILE ####[facility] LABORATORIESCLIA [id number] [place] [address] BILE ACIDS, TOTALon 11-06-19 25 Bile acid [Moles/Vol] 6.0 umol/L Normal <7.5 [facility] Comment on above: Order Comment: Speci men Type: BLOOD SPECIMENOrdering Facility: [facility] Address: [address] [place] [address] Result Comment: Refe rence interval applies to fasting specimens.The total serum bile acid concentration is increased after meals; hence, samples should be collected under fasting conditions, when possible. This does not apply to patients for whom intrahepatic cholestasis of as a diagnostic consideration; these patients will need peak bile acid testing, and samples should be postprandial.This serum bile acid assay should not be used for patients receiving ursodeoxycholic acid, nor should it be used as the primary assay for the screening or diagnosis of genetic disorders of bile acid metabolism.Patient Reference Intervals:0 Days to 5 Months: Not established6 Months to 23 Months: <25.8 umol/L2 Years to 4 Years: <20.9 umol/L5 Years to 9 Years: <12.4 umol/L10 Years to 19 Years: <13.6 umol/L20 Years to 59 Years: <7.5 umol/L>=60 Years: <8.3 umol/LPregnancy Reference Intervals (Non-fasting): First Trimester (up to 13 weeks gestation): < 15.3 umol/LPregnancy Reference Interval (Non-fasting): Second Trimester (13 - 27 weeks gestation): < 11.4 umol/LPregnancy Reference Interval (Non-fasting): Third Trimester (> 27 weeks gestation): < 10.4 umol/L Performed By: #### B FREDERICK ####[facility] LABCLIA [id number] [place] [address] [place] Comprehensive metabolic 2000 panelOrdered By: Jayne Brunner on 11-05-2024 Albumin [Mass/Vol] 3.6 g/dL Low 3.9 - 4.9 g/dL [facility] ALP [Catalytic activity/Vol] 83 U/L 34 - 123 U/L [facility] ALT [Catalytic activity/Vol] 10 U/L 7 - 38 U/L [facility] Anion gap [Moles/Vol] 11 mmol/L 8 - 15 mmol/L [facility] AST [Catalytic activity/Vol] 9 U/L Low 13 - 35 U/L [facility] Bilirubin [Mass/Vol] 0.3 mg/dL 0.2 - 1 .3 mg/dL [facility] Calcium [Mass/Vol] 9 mg/dL 8.5 - 10. 2 mg/dL [facility] Chloride [Moles/Vol] 103 mmol/L 98 - 10 7 mmol/L [facility] CO2 [Moles/Vol] 21 mmol/L Low 22 - 30 mmol/L [facility] Creatinine [Mass/Vol] 0.42 mg/dL Low 0.58 - 0.96 mg/dL [facility] GFR/1.73 sq M.predicted among non-blacks MDRD (S/P/Bld) [Vol rate/Area] 136 mL/min/{1.73_m2} - PINF [facility] Comment on above: Estimated Glomerular Filtration Rate (eGFR) is calculated using the 2020 CKD-EPI creatinine equation. This equation utilizes serum creatinine, sex, and age as parameters. The creatinine assay has traceable calibration to isotope dilution-mass spectrometry. Refer to KDIGO guidelines for clinical interpretation. In patients with unstable renal function, e.g. those with acute kidney injury, the eGFR may not accurately reflect actual GFR. Glucose [Mass/Vol] 115 mg/dL High 74 - 99 mg/dL [facility] Comment on above: The [place] Diabete s Association (ADA) provides guidance for cutoff values for fasting glucose and random glucose. The ADA defines fasting as no caloric intake for at least 8 hours. Fasting plasma glucose results between 100 to 125 mg/dL indicate increased risk for diabetes (prediabetes). Fasting plasma glucose results greater than or equal to 126 mg/dL meet the criteria for diagnosis of diabetes. In the absence of unequivocal hyperglycemia, results should be confirmed by repeat testing. In a patient with classic symptoms of hyperglycemia or hyperglycemic crisis, random plasma glucose results greater than or equal to 200 mg/dL meet the criteria for diagnosis of diabetes. Reference: Standards of Medical Care in Diabetes 2016, [place] Diabetes Association. Diabetes Care. 2016.39(Suppl 1). Interpretation and review of laboratory results Abnormal [facility] Potassium [Moles/Vol] 3.8 mmol/L 3.7 - 5.1 mmol/L [facility] Protein [Mass/Vol] 6.9 g/dL 6.3 - 8.0 g/dL [facility] Sodium [Moles/Vol] 135 mmol/L Low 136 - 144 mmol/L [facility] Urea nitrogen [Mass/Vol] 7 mg/dL 7 - 21 mg/dL [facility] Comprehensive metabolic 2000 panelon 11-05-2024 Albumin [Mass/Vol] 3.6 g/dL Low 3.9-4.9 [facility] Comment on above: Order Comment: Speci men Type: BLOOD SPECIMENOrdering Facility: [facility] Address: [address] [place] [address] Performed By: #### 2 4323-8 ####[facility] EMERGENCYKLAUSA [id number] [place] [address] [place] ALP [Catalytic activity/Vol] 83 U/L Normal 34-123 [facility] Comment on above: Order Comment: Speci men Type: BLOOD SPECIMENOrdering Facility: [facility] Address: [address] [place] [address] Performed By: #### 2 4323-8 ####[facility]IT[facility] [id number] [place] [address] [place] ALT [Catalytic activity/Vol] 10 U/L Normal 7-38 [facility] Comment on above: Order Comment: Speci men Type: BLOOD SPECIMENOrdering Facility: [facility] Address: [address] [place] [address] Performed By: #### 2 4323-8 ####[facility] EM[facility]ENCYNCLIA [id number] [place] [address] [place] Anion gap [Moles/Vol] 11 mmol/L Normal 8-15 [facility] Comment on above: Order Comment: Speci men Type: BLOOD SPECIMENOrdering Facility: [facility] Address: [address] [place] [address] Performed By: #### 2 4323-8 ####[facility] MILLTOWNCLIA [id number] [place] [address] [place] AST [Catalytic activity/Vol] 9 U/L Low 13-35 [facility] Comment on above: Order Comment: Speci men Type: BLOOD SPECIMENOrdering Facility: [facility] Address: [address] [place] [address] Performed By: #### 2 4323-8 ####[facility] MILLTOWNCLIA [id number] [place] [address] [place] Bilirubin [Mass/Vol] 0.3 mg/dL Normal 0.2-1.3 [facility] Comment on above: Order Comment: Speci men Type: BLOOD SPECIMENOrdering Facility: [facility] Address: [address] [place] [address] Performed By: #### 2 4323-8 ####[facility] HOSPITALWNCLIA [id number] [place] [address] [place] Calcium [Mass/Vol] 9.0 mg/dL Normal 8.5-10.2 [facility] Comment on above: Order Comment: Speci men Type: BLOOD SPECIMENOrdering Facility: [facility] Address: [address] [place] [address] Performed By: #### 2 4323-8 ####[facility] MILLTOWNCLIA [id number] [place] [address] [place] Chloride [Moles/Vol] 103 mmol/L Normal 98-107 [facility] Comment on above: Order Comment: Speci men Type: BLOOD SPECIMENOrdering Facility: [facility] Address: [address] [place] [address] Performed By: #### 2 4323-8 ####[facility] MILLTOWNCLIA [id number] [place] [address] [place] CO2 [Moles/Vol] 21 mmol/L Low 22-30 [facility] Comment on above: Order Comment: Speci men Type: BLOOD SPECIMENOrdering Facility: [facility] Address: [address] [place] [address] Performed By: #### 2 4323-8 ####[facility] [id number] [place] [address] [place] Creatinine [Mass/Vol] 0.42 mg/dL Low 0.58-0.96 [facility] Comment on above: Order Comment: Speci men Type: BLOOD SPECIMENOrdering Facility: [facility] Address: [address] [place] [address] Performed By: #### 2 4323-8 ####[facility] [id number] [place] [address] [place] Creatinine and Glomerular filtration rate.predicted panel (S/P/Bld) 136 mL/min/1.73m??? Normal >=60 [facility] Comment on above: Order Comment: Speci men Type: BLOOD SPECIMENOrdering Facility: [facility] Address: [address] [place] [address] Result Comment: Ascencion mated Glomerular Filtration Rate (eGFR) is calculated using the 2020 CKD-EPI creatinine equation. This equation utilizes serum creatinine, sex, and age as parameters. The creatinine assay has traceable calibration to isotope dilution-mass spectrometry. Refer to KDIGO guidelines for clinical interpretation. In patients with unstable renal function, e.g. those with acute kidney injury, the eGFR may not accurately reflect actual GFR. Performed By: #### 2 4323-8 ####[facility] [id number] [place] [address] [place] Glucose [Mass/Vol] 115 mg/dL High 74-99 [facility] Comment on above: Order Comment: Speci men Type: BLOOD SPECIMENOrdering Facility: [facility] Address: [address] [place] [address] Result Comment: The [place] Diabetes Association (ADA) provides guidance for cutoff values for fasting glucose and random glucose. The ADA defines fasting as no caloric intake for at least 8 hours. Fasting plasma glucose results between 100 to 125 mg/dL indicate increased risk for diabetes (prediabetes).Fasting plasma glucose results greater than or equal to 126 mg/dL meet the criteria for diagnosis of diabetes. In the absence of unequivocal hyperglycemia, results should be confirmed by repeat testing. In a patient with classic symptoms of hyperglycemia or hyperglycemic crisis, random plasma glucose results greater than or equal to 200 mg/dL meet the criteria for diagnosis of diabetes.Reference: Standards of Medical Care in Diabetes 2016, [place] Diabetes Association. Diabetes Care. 2016.39(Suppl 1). Performed By: #### 2 4323-8 ####[facility]YKLAUSSEVI[facility] [id number] [place] [address] [place] Potassium [Moles/Vol] 3.8 mmol/L Normal 3.7-5.1 [facility] Comment on above: Order Comment: Speci men Type: BLOOD SPECIMENOrdering Facility: [facility] Address: [address] [place] [address] Performed By: #### 2 4323-8 ####[facility] [id number] [place] [address] [place] Protein [Mass/Vol] 6.9 g/dL Normal 6.3-8.0 [facility] Comment on above: Order Comment: Speci men Type: BLOOD SPECIMENOrdering Facility: [facility] Address: [address] [place] [address] Performed By: #### 2 4323-8 ####[facility] [id number] [place] [address] [place] Sodium [Moles/Vol] 135 mmol/L Low 136-144 [facility] Comment on above: Order Comment: Speci men Type: BLOOD SPECIMENOrdering Facility: [facility] Address: [address] [place] [address] Performed By: #### 2 4323-8 ####[facility] PETERSBURGTOWNCLI [id number] [place] [address] [place] Urea nitrogen [Mass/Vol] 7 mg/dL Normal 12-27 [facility] Comment on above: Order Comment: Speci men Type: BLOOD SPECIMENOrdering Facility: [facility] Address: [address] [place] [address] Performed By: #### 2 4323-8 ####[facility] [id number] [place] [address] [place] URINE OB DIP B/Oon 5 Glucose Ql (U) 250 mg/dL Neg [facility] Interpretation and review of laboratory results Normal [facility] Protein.monoclonal (U) [Mass/Vol] Negative Neg mg/dL [facility] CNCNPATEDon 11-04-2024 CNCNPATED Normal [facility] CNOVon 11-04-2024 CNOV Normal [facility] CNPNon 11-02-2024 CNPN Normal [facility] Examination level ultrasound on 11-02-2024 [facility] Radiology Study observation (narrative) [facility] URINE OB DIP B/Oon 5 Glucose Ql (U) 1000 mg/dL Neg [facility] Interpretation and review of laboratory results Abnormal [facility] Protein.monoclonal (U) [Mass/Vol] Negative Neg mg/dL [facility] CNPNon 10-29-2024 CNPN Normal [facility] CNPNon 10-27-2024 CNPN Normal [facility] CBC panel Auto (Bld)on 10-25 Erythrocyte distribution width (RBC) [Ratio] 12.9 % 11.5 - 15.0 % [facility] Hematocrit (Bld) [Volume fraction] 36 % 36.0 - 46.0 % [facility] Hemoglobin (Bld) [Mass/Vol] 12.4 g/dL 11.5 - 15.5 g/dL [facility] Interpretation and review of laboratory results Normal [facility] MCH (RBC) [Entitic mass] 29.5 pg 26.0 - 34.0 pg [facility] MCHC (RBC) [Mass/Vol] 34.4 g/dL 30.5 - 36.0 g/dL [facility] MCV (RBC) [Entitic vol] 85.5 fL 80.0 - 100.0 fL [facility] Nucleated RBC (Bld) [#/Vol] NINF [facility] Platelet mean volume (Bld) [Entitic vol] 9.6 fL 9.0 - 12.7 fL [facility] Platelets (Bld) [#/Vol] 274 10*3/uL [facility] RBC (Bld) [#/Vol] 4.21 10*6/uL 3.90 - 5.2 0 m/uL [facility] WBC (Bld) [#/Vol] 8.6 10*3/uL [facility] Erythrocyte distribution width (RBC) [Ratio] 12.9 % Normal 11.5-15.0 [facility] Comment on above: Order Comment: Speci men Type: BLOOD SPECIMENOrdering Facility: [facility] Address: [address] [place] [address] Performed By: #### 5 8410-2 ####[facility] [id number] [place] [address] [place] Hematocrit (Bld) [Volume fraction] 36.0 % Normal 36.0-46.0 [facility] Comment on above: Order Comment: Speci men Type: BLOOD SPECIMENOrdering Facility: [facility] Address: [address] [place] [address] Performed By: #### 5 8410-2 ####[facility] [id number] [place] [address] [place] Hemoglobin (Bld) [Mass/Vol] 12.4 g/dL Normal 11.5-15.5 [facility] Comment on above: Order Comment: Speci men Type: BLOOD SPECIMENOrdering Facility: [facility] Address: [address] [place] [address] Performed By: #### 5 8410-2 ####[facility] [id number] [place] [address] [place] MCH (RBC) [Entitic mass] 29.5 pg Normal 26.0-34.0 [facility] Comment on above: Order Comment: Speci men Type: BLOOD SPECIMENOrdering Facility: [facility] Address: [address] [place] [address] Performed By: #### 5 8410-2 ####[facility] [id number] [place] [address] [place] MCHC (RBC) [Mass/Vol] 34.4 g/dL Normal 30.5-36.0 [facility] Comment on above: Order Comment: Speci men Type: BLOOD SPECIMENOrdering Facility: [facility] Address: [address] [place] [address] Performed By: #### 5 8410-2 ####[facility]YKLAUSRaymond [id number] [address] [place] MCV (RBC) [Entitic vol] 85.5 fL Normal 80.0-100.0 [facility] Comment on above: Order Comment: Speci men Type: BLOOD SPECIMENOrdering Facility: [facility] Address: [address] [place] [address] Performed By: #### 5 8410-2 ####[facility] [id number] [place] [address] [place] Nucleated RBC (Bld) [#/Vol] 10*3/uL Normal <0.01 [facility] Comment on above: Order Comment: Speci men Type: BLOOD SPECIMENOrdering Facility: [facility] Address: [address] [place] [address] Performed By: #### 5 8410-2 ####[facility] [id number] [place] [address] [place] Platelet mean volume (Bld) [Entitic vol] 9.6 fL Normal 9.0-12.7 [facility] Comment on above: Order Comment: Speci men Type: BLOOD SPECIMENOrdering Facility: [facility] Address: [address] [place] [address] Performed By: #### 5 8410-2 ####[facility] [id number] [place] [address] [place] Platelets (Bld) [#/Vol] 274 10*3/uL Normal 150-400 [facility] Comment on above: Order Comment: Speci men Type: BLOOD SPECIMENOrdering Facility: [facility] Address: [address] [place] [address] Performed By: #### 5 8410-2 ####[facility] [id number] [place] [address] [place] RBC (Bld) [#/Vol] 4.21 10*6/uL Normal 3.90-5.20 [facility] Comment on above: Order Comment: Speci men Type: BLOOD SPECIMENOrdering Facility: [facility] Address: [address] [place] [address] Performed By: #### 5 8410-2 ####[facility] [id number] [place] [address] [place] WBC (Bld) [#/Vol] 8.60 10*3/uL Normal 3.70-11.00 [facility] Comment on above: Order Comment: Speci men Type: BLOOD SPECIMENOrdering Facility: [facility] Address: [address] [place] [address] Performed By: #### 5 8410-2 ####[facility] [id number] [place] [address] [place] Comprehensive metabolic 2000 panelOrdered By: Aquiles Denny on 10-25-2024 Albumin [Mass/Vol] 3.6 g/dL Low 3.9 - 4.9 g/dL [facility] ALP [Catalytic activity/Vol] 82 U/L 34 - 123 U/L [facility] ALT [Catalytic activity/Vol] 11 U/L 7 - 38 U/L [facility] Anion gap [Moles/Vol] 14 mmol/L 8 - 15 mmol/L [facility] AST [Catalytic activity/Vol] 9 U/L Low 13 - 35 U/L [facility] Bilirubin [Mass/Vol] 0.2 mg/dL 0.2 - 1 .3 mg/dL [facility] Calcium [Mass/Vol] 9.3 mg/dL 8.5 - 10. 2 mg/dL [facility] Chloride [Moles/Vol] 104 mmol/L 98 - 10 7 mmol/L [facility] CO2 [Moles/Vol] 18 mmol/L Low 22 - 30 mmol/L [facility] Creatinine [Mass/Vol] 0.39 mg/dL Low 0.58 - 0.96 mg/dL [facility] GFR/1.73 sq M.predicted among non-blacks MDRD (S/P/Bld) [Vol rate/Area] 138 mL/min/{1.73_m2} - PINF [facility] Comment on above: Estimated Glomerular Filtration Rate (eGFR) is calculated using the 2020 CKD-EPI creatinine equation. This equation utilizes serum creatinine, sex, and age as parameters. The creatinine assay has traceable calibration to isotope dilution-mass spectrometry. Refer to KDIGO guidelines for clinical interpretation. In patients with unstable renal function, e.g. those with acute kidney injury, the eGFR may not accurately reflect actual GFR. Glucose [Mass/Vol] 103 mg/dL High 74 - 99 mg/dL [facility] Comment on above: The [place] Diab[employer] s Association (ADA) provides guidance for cutoff values for fasting glucose and random glucose. The ADA defines fasting as no caloric intake for at least 8 hours. Fasting plasma glucose results between 100 to 125 mg/dL indicate increased risk for diabetes (prediabetes). Fasting plasma glucose results greater than or equal to 126 mg/dL meet the criteria for diagnosis of diabetes. In the absence of unequivocal hyperglycemia, results should be confirmed by repeat testing. In a patient with classic symptoms of hyperglycemia or hyperglycemic crisis, random plasma glucose results greater than or equal to 200 mg/dL meet the criteria for diagnosis of diabetes. Reference: Standards of Medical Care in Diabetes 2016, [place] [employer]. Diabetes Care. 2016.39(Suppl 1). Interpretation and review of laboratory results Abnormal [facility] Potassium [Moles/Vol] 3.9 mmol/L 3.7 - 5.1 mmol/L [facility] Protein [Mass/Vol] 7 g/dL 6.3 - 8.0 g/dL [facility] Sodium [Moles/Vol] 136 mmol/L 136 - 144 mmol/L [facility] Urea nitrogen [Mass/Vol] 5 mg/dL Low 7 - 21 mg/dL [facility] Comprehensive metabolic 2000 panelon 10-25-2024 Albumin [Mass/Vol] 3.6 g/dL Low 3.9-4.9 [facility] Comment on above: Order Comment: Speci men Type: BLOOD SPECIMENOrdering Facility: [facility] Address: [address] [place] [address] Performed By: #### 2 4323-8 ####[facility] [id number] [place] [address] [place] ALP [Catalytic activity/Vol] 82 U/L Normal 34-123 [facility] Comment on above: Order Comment: Speci men Type: BLOOD SPECIMENOrdering Facility: [facility] Address: [address] [place] [address] Performed By: #### 2 4323-8 ####[facility] [id number] [place] [address] [place] ALT [Catalytic activity/Vol] 11 U/L Normal 7-38 [facility] Comment on above: Order Comment: Speci men Type: BLOOD SPECIMENOrdering Facility: [facility] Address: [address] [place] [address] Performed By: #### 2 4323-8 ####[facility] [id number] [place] [address] [place] Anion gap [Moles/Vol] 14 mmol/L Normal 8-15 [facility] Comment on above: Order Comment: Speci men Type: BLOOD SPECIMENOrdering Facility: [facility] Address: [address] [place] [address] Performed By: #### 2 4323-8 ####[facility] VICKYMARKUSA [id number] [place] [address] [place] AST [Catalytic activity/Vol] 9 U/L Low 13-35 [facility] Comment on above: Order Comment: Speci men Type: BLOOD SPECIMENOrdering Facility: [facility] Address: [address] [place] [address] Performed By: #### 2 4323-8 ####[facility] [id number] [place] [address] [place] Bilirubin [Mass/Vol] 0.2 mg/dL Normal 0.2-1.3 [facility] Comment on above: Order Comment: Speci men Type: BLOOD SPECIMENOrdering Facility: [facility] Address: [address] [place] [address] Performed By: #### 2 4323-8 ####[facility] [id number] [place] [address] [place] Calcium [Mass/Vol] 9.3 mg/dL Normal 8.5-10.2 [facility] Comment on above: Order Comment: Speci men Type: BLOOD SPECIMENOrdering Facility: [facility] Address: [address] [place] [address] Performed By: #### 2 4323-8 ####[facility] [id number] [place] [address] [place] Chloride [Moles/Vol] 104 mmol/L Normal 98-107 [facility] Comment on above: Order Comment: Speci men Type: BLOOD SPECIMENOrdering Facility: [facility] Address: [address] [place] [address] Performed By: #### 2 4323-8 ####[facility]BURGTOWNCLIA [id number] [place] [address] [place] CO2 [Moles/Vol] 18 mmol/L Low 22-30 [facility] Comment on above: Order Comment: Speci men Type: BLOOD SPECIMENOrdering Facility: [facility] Address: [address] [place] [address] Performed By: #### 2 4323-8 ####[facility] [id number] [place] [address] [place] Creatinine [Mass/Vol] 0.39 mg/dL Low 0.58-0.96 [facility] Comment on above: Order Comment: Speci men Type: BLOOD SPECIMENOrdering Facility: [facility] Address: [address] [place] [address] Performed By: #### 2 4323-8 ####[facility] [id number] [place] [address] [place] Creatinine and Glomerular filtration rate.predicted panel (S/P/Bld) 138 mL/min/1.73m??? Normal >=60 [facility] Comment on above: Order Comment: Speci men Type: BLOOD SPECIMENOrdering Facility: [facility] Address: [address] [place] [address] Result Comment: Ascencion mated Glomerular Filtration Rate (eGFR) is calculated using the 2020 CKD-EPI creatinine equation. This equation utilizes serum creatinine, sex, and age as parameters. The creatinine assay has traceable calibration to isotope dilution-mass spectrometry. Refer to KDIGO guidelines for clinical interpretation. In patients with unstable renal function, e.g. those with acute kidney injury, the eGFR may not accurately reflect actual GFR. Performed By: #### 2 4323-8 ####[facility]CL[facility] [id number] [place] [address] [place] Glucose [Mass/Vol] 103 mg/dL High 74-99 [facility] Comment on above: Order Comment: Speci men Type: BLOOD SPECIMENOrdering Facility: [facility] Address: [address] [place], [place] [address] Result Comment: The [place] Diabetes Association (ADA) provides guidance for cutoff values for fasting glucose and random glucose. The ADA defines fasting as no caloric intake for at least 8 hours. Fasting plasma glucose results between 100 to 125 mg/dL indicate increased risk for diabetes (prediabetes).Fasting plasma glucose results greater than or equal to 126 mg/dL meet the criteria for diagnosis of diabetes. In the absence of unequivocal hyperglycemia, results should be confirmed by repeat testing. In a patient with classic symptoms of hyperglycemia or hyperglycemic crisis, random plasma glucose results greater than or equal to 200 mg/dL meet the criteria for diagnosis of diabetes.Reference: Standards of Medical Care in Diabetes 2016, [place] Diabetes Association. Diabetes Care. 2016.39(Suppl 1). Performed By: #### 2 4323-8 ####[facility] [id number] [place] [address] [place] Potassium [Moles/Vol] 3.9 mmol/L Normal 3.7-5.1 [facility] Comment on above: Order Comment: Speci men Type: BLOOD SPECIMENOrdering Facility: [facility] Address: [address] [place] [address] Performed By: #### 2 4323-8 ####[facility] [id number] [place] [address] [place] Protein [Mass/Vol] 7.0 g/dL Normal 6.3-8.0 [facility] Comment on above: Order Comment: Speci men Type: BLOOD SPECIMENOrdering Facility: [facility] Address: [address] [place], [place] [address] Performed By: #### 2 4323-8 ####[facility] [id number] [place] [address] [place] Sodium [Moles/Vol] 136 mmol/L Normal 136-144 [facility] Comment on above: Order Comment: Speci men Type: BLOOD SPECIMENOrdering Facility: [facility] Address: [address] [place] [address] Performed By: #### 2 4323-8 ####[facility]GENCYNCRaymond [id number] [place] [address] [place] Urea nitrogen [Mass/Vol] 5 mg/dL Low 7-21 [facility] Comment on above: Order Comment: Speci men Type: BLOOD SPECIMENOrdering Facility: [facility] Address: [address] [place] [address] Performed By: #### 2 4323-8 ####[facility]CL[facility] [id number] [place] [address] [place] [id number] 10-25-2024 ECG01 Normal [facility] PARVOVIRUS B19 IGG+Mon 10-25 PARVO B19 IGG, QUAL Positive Abnormal Negative [facility] Comment on above: Order Comment: Speci men Type: BLOOD SPECIMENOrdering Facility: [facility] Address: [address] [place] [address] Result Comment: Parv ovirus B19 virus IgG antibody test is used as an aid in diagnosis of recent or past infection with Parvovirus B19 virus. Cannot exclude recent infection if the specimen collected 2-3 weeks after exposure to a known source. Clinical correlation is required. Parvovirus B19 virus IgG antibody level remains elevated for prolonged periods, if not for life.Results were obtained with the [employer] Parvovirus B19 IgG Enzyme Immunoassay. Performed By: #### P ARV ####[facility] LABCLIA [id number] [place] [address] [place] PARVO B19 IGM, QUAL Negative Normal Negative [facility] Comment on above: Order Comment: [facility] Type: BLOOD SPECIMENOrdering Facility: [facility] Address: [address] [place] [address] Result Comment: Parv ovirus B19 virus IgM antibody test is used as an aid in diagnosis of acute infection with Parvovirus B19 virus. Cannot exclude recent infection if the specimen collected 7-10 days after exposure to a known source. Parvovirus B19 virus IgM antibody level may remain elevated for a few months after an acute infection. Clinical correlation is required.Results were obtained with the [employer] Parvovirus B19 IgM Enzyme Immunoassay. Performed By: #### P ARV ####[facility] LABCL[facility] [id number] [place] [address] [place] URINE OB DIP B/OOrdered By: Renetta Petersen on 10-25-2024 Glucose Ql (U) Negative Neg mg/dL [facility] Protein.monoclonal (U) [Mass/Vol] Negative Neg mg/dL [facility] Urine Cultureon 10-20-2024 [facility] Urine Culture #1 Below infection level. Streptococcus agalactiae (B) [place] Count <1000 Mixed Gram Positive Organisms Mixed Gram Positive Organisms MIXC Mixed contaminants. Submit a new specimen if indicated. Streptococcus agalactiae (B): REACTION Ampicillin Islt STEF <=0.25 cefTRIAXone Islt STEF <=0.12 S Clindamycin.induced Susc Islt Linezolid Islt STEF <=2 S Vancomycin Islt STEF 0.5 S Normal [facility] Comment on above: Performed By: #### M 100.2206 #### [facility] [address]. [place], [place], [address] CNPNon 10-19-2024 CNPN Normal [facility] URINE OB DIP B/Oon Glucose Ql (U) Negative Neg mg/dL [facility] Interpretation and review of laboratory results Normal [facility] Protein.monoclonal (U) [Mass/Vol] Negative Neg mg/dL [facility] Bedside Glucoseon 10-16-2024 FINGERSTICK GLU 106 mg/dL Normal 74-106 [facility] Comment on above: Result Comment: ELLEN ZAMBRANO OF PATIENT CARE PER NURSING PROTOCOL Performed By: #### L 501.080 #### [facility] [address] [place], [place], [id number] Bilirubin Test strip Ql (U)O rdered By: Mariajose Nickerson on 10-16-2024 Bilirubin Ql (U) Negative Negative [facility] de[facility]dered By: Mariajose Nickerson on 10-16-2024 Glucose [Mass/Vol] 106 mg/dL 74-106 [facility] Comment on above: MANAGEMENT OF PATIEN T CARE PER NURSING PROTOCOL Ketones Test strip Ql (U)Ord ered By: Mariajose Nickerson on 10-16-2024 Ketones Ql (U) Negative Negative [facility] Microscopic analysis of urin e for red blood cells (RBC)Ordered By: Mariajose Nickerson on 10-16-2024 Microscopic analysis of urine for red blood cells (RBC) 0 SEEN /hpf 0-5 [facility] Mucus LM Ql (Urine sed)Order ed By: Mariajose Nickerson on 10-16-2024 Mucus Ql (Urine sed) 0 SEEN /hpf [facility] Nitrite Test strip Ql (U)Ord ered By: Mariajose Nickerson on 10-16-2024 Nitrite Ql (U) Negative Negative [facility] OB Triage Physician Noteon 0 10-16-2024 OB Triage Physician Note [facility] Medical Records Department [address] [place] [address] OB Triage Physician Note 10/16/24 1838 MR#: [id number] Acct: [id number] Name: MELISSA BYRNE Rep #: [id number] : 1995 29 From: Mariajose Nickerson CN PCP: Dr. Jamari Byrne MD Status:REG CLI Y Location: [address] HPI - General HPI Narrative MELISSA BYRNE, is a 29 F at 31 weeks gestation who presents with lower abdominal pain and tightening. Denies any loss of fluid or vaginal bleeding. Maternal Data Information ADA Calculator Estimated Delivery Date Method Current WG Current Estimate 12/18/24 Manual 31w 0d PFSH PFSH Medical History Seizures Asthma Osteoarthritis Diabetes Home Medications ???Medication ???Instructions ???Recorded ???Last Taken ???Type glipizide 5 mg tablet 5 mg PO BID 01/23/18 Unknown Histo ry Held on 10/16/24. Instructions: metformin 1,000 mg tablet 500 mg PO BIDCM 01/23/18 Unknown H istory Held on 10/16/24. Instructions: buspirone 15 mg tablet 15 mg PO QDAY 02/26/24 Unknown His tory fluoxetine 40 mg capsule 20 mg PO QDAY Mood 02/26/24 Unknow n History insulin lispro 100 unit/mL 23 unit subcut .COMPLEX 02/26/24 U nknown History subcutaneous pen (Humalog KwikPen pregestational diabetes (U-100) Insulin) HumuLIN N NPH Insulin KwikPen 90 units subcut QHS type II Unknown History diabetes aspirin 81 mg tablet,delayed 81 mg PO DAILY 10/16/24 Unknown Hi story release (Adult Aspirin Regimen) Allergy/AdvReac Type Severity Reaction Status Date / Time aripiprazole (From Abilify) AdvReac Other Verified 10/16/24 17:43 metoclopramide (From Reglan) AdvReac Other Verified 10/16/24 17:43 ondansetron (From Zofran) AdvReac Vomiting Verified 10/16/24 17:43 quetiapine (From Seroquel) AdvReac Other Verified 10/16/24 17:43 sertraline (From Zoloft) AdvReac Other Verified 10/16/24 17:43 Family History Other Heart disease Hyperlipemia Surgical History History of dilation and curettage History of oral surgery History of cholecystectomy Social History Smoking Status: Current every day smoker alcohol intake: never substance use type: does not use History Elective abortions Hx Para 0 Spontaneous abortions Hx # Term Pregnancies Ectopic pregnancies Hx # Pregnancies Multiple births # of living children Physical Exam Narrative Patient seen at bedside for evaluation. C/O upper abdominal pain and tightening at times. Increased movements today. Has not drank a lot of water - drinking juice most of the day. Assessment Plan (1) 31 weeks gestation of : (2) Type 2 diabetes mellitus affecting , antepartum: (3) History of herpes genitalis: (4) Asthma: (5) Bipolar 1 disorder: (6) Obesity affecting : PLAN: Plan NST reactive No contractions via TOCO or palpated UA + ketones, protein, glucose , - sent for culture IV- 1000 cc bolus of LR Abdomen is non tender with palpation CE - closed/ thick D/C home with follow up in office on Friday Dr. Julian involved with plan of care 10/16/242000 Date Mariajose Najeraignnoman Signature (if applicable): Date CC: JULIO Nickerson; Dr. Jamari Byrne MD Signed Normal [facility] Protein Test strip Ql (U)Ord ered By: Mariajose Nickerson on 10-16-2024 Protein Ql (U) 30 mg/dl High Negative [facility] Squamous epithelial cells de tection in urine sediment by light microscopyOrdered By: Mariajose Nickerson on 10-16-2024 Epithelial cells.squamous LM Ql (Urine sed) 5-10 SEEN /hpf -10 [facility] Urinalysis, Completeon 10-16 EPI,SQUAMOUS 5-10 SEEN Normal - [facility] Comment on above: Order Comment: CLEAN CATCH Performed By: #### L 400.0001 #### [facility] [address] [place], [place], [id number] BACTERIA 0 SEEN Normal None Seen [facility] Comment on above: Order Comment: CLEAN CATCH Performed By: #### L 400.0001 #### [facility] [address] [place], [place], [address] Mucus Ql (Urine sed) 0 SEEN Normal [facility] Comment on above: Order Comment: CLEAN CATCH Performed By: #### L 400.0001 #### [facility] [address] [place], [address] RBC 0 SEEN Normal 0-5 [facility] Comment on above: Order Comment: CLEAN CATCH Performed By: #### L 400.0001 #### [facility] [address] [place], [place], [address] WBC 0 SEEN Normal 0-5 [facility] Comment on above: Order Comment: CLEAN CATCH Performed By: #### L 400.0001 #### [facility] [address] [place], [place], [address] Urine clarityOrdered By: Yoli Nickerson on 10-16-2024 Clarity (U) Sl. Cloudy Clear [facility] Urine color determinationOrd ered By: Mariajose Nickerson on 10-16-2024 Color (U) Yellow Yellow [facility] Urine cultureOrdered By: Lizet Julian on 10-16-2024 Bacteria identified Cx Nom (U) Streptococcus agalactiae (B) Abnormal [facility] Bacteria identified Cx Nom (U) Positive Abnormal [facility] Urine glucose detectionOrder ed By: Mariajose Nickerson on 10-16-2024 Glucose Ql (U) 50 mg/dl High Normal [facility] Urine leukocyte esterase det ection by dipstickOrdered By: Mariajose Nickerson on 10-16-2024 Leukocyte esterase Test strip Ql (U) 25 /ul High Negative [facility] Urine pHOrdered By: Mariajose Nickerson on 10-16-2024 pH (U) 6.0 [pH] 5.0 - 8.0 [facility] Urine sediment bacteria coun t by microscopy (number/high power field)Ordered By: Mariajose Nickerson on 10-16-2024 Bacteria LM.HPF (Urine sed) [#/Area] 0 /[HPF] None Seen [facility] Urine specific gravity measu rementOrdered By: Mariajose Nickerson on 10-16-2024 Specific gravity (U) [Rel density] 1.025 1.002-1.030 [facility] Urine urobilinogen measureme ntOrdered By: Mariajose Nickerson on 10-16-2024 Urobilinogen Ql (U) 1 mg/dl High Normal [facility] White blood cell countOrdere d By: Mariajose Nickerson on 10-16-2024 White blood cell count 0 SEEN /hpf 0-5 [facility] ECHO FETALon 10-12-2024 + -----+-+ Pediatric Cardiology Echocardiogram Report + -----+-+ NAME: MELISSA BYRNE : 1995 PT ID#: [id number] Age: 29 years Sex: F STUDY DATE: 10/12/2024 10:05:33 AM ADA: 12/18/2024 GA: 30w3d Image Quality: Technically difficult and adequate. Referring Physician: Pamela Haskins Diagnosing Physician: Pamela Haskins Economics Professor: Melissa Pineda RDMS, RDCS 2nd Economics Professor: Diagnosis: [id number] abnormality and damage, single fetus or unspecified Procedure Code: 68979, 02733, 67911 Echo, Complete (w/Doppler and color) Exam Location: [facility] (). Indications: Evaluate cardiac anatomy and function Color Doppler was utilized to interrogate the cardiac valves assessed. Spectral Doppler was utilized to determine the flow velocities and pressure gradients reported in this exam. History: Maternal diabetes Parameters: Single/Multi: [place] Position: position is cephalic Biometry: Biometry Table: Biparietal Diameter 6.85 cm Abdominal Circumference 25.60 cm Femur Length 5.24 cm Estimated Weight 1263.27 g Vessels: Three-vessel umbilical cord is present. Umbilical artery flow Doppler is normal. Umbilical venous flow Doppler is normal. Ductus Venosus Doppler is normal. Cerebral Artery Doppler is normal. UA S/D 2.7 UA PI 0.95 MCA PI 2.87 Rate and Rhythm: Normal heart rate and rhythm. HR 140 bpm Mechanical UT 84 ms Segmental Anatomy, Cardiac Position and Situs: The segmental anatomy and situs are normal. Normal visceral situs. The heart position is within the left hemithorax (levo position). Levocardia (apex to the left). The aorta is to the right of the pulmonary artery. Segmental anatomy is S,D,S. Systemic Veins: Right superior vena cava is right sided and drains normally to the right atrium. The inferior vena cava is right sided and inserts normally into the right atrium. Pulmonary Veins: At least one pulmonary vein on each side drains to the left atrium. Atria: The right atrium is normal in size. The left atrium is normal in size. Widely patent foramen ovale with normal intrauterine right to left flow. Tricuspid Valve: The tricuspid valve is normal. Tricuspid valve inflow Doppler is biphasic. There is no tricuspid valve regurgitation. Right Ventricle: There is qualitatively normal right ventricular size and wall thickness with normal systolic function. Mitral Valve: The mitral valve is normal. There is no mitral valve regurgitation. Mitral valve inflow Doppler is biphasic. Left Ventricle: Normal left ventricular size and wall thickness with normal systolic function. VSD: There is no obvious ventricular septal defect. Conotruncal Anatomy: There is normal conotruncal anatomy. RVOT: There is no right ventricular outflow tract obstruction. Pulmonary Valve: The pulmonary valve is normal. There is no pulmonary valve stenosis. There is no pulmonary valve regurgitation. Pulmonary Arteries: The main and branch pulmonary arteries appear normal. The main pulmonary artery is normal. LVOT: There is no left ventricular outflow tract obstruction. Aortic Valve: The aortic valve is normal with no stenosis and no regurgitation. Aorta: Aortic arch is widely patent. There is a left aortic arch. Ductus Arteriosus: Ductal arch is widely patent with normal intrauterine right to left flow. Pericardium: There is a trivial apical pericardial effusion. Measurements: 2D: Z-Score Aortic annulus 5.4 mm -0.33 MV annulus 7.5 mm -1.13 Pulmonary annulus 7.2 mm 0.34 TV annulus 8.2 mm -0.99 Summary 1. No structural abnormalities seen. 2. Normal left ventricular size and wall thickness with normal systolic function. 3. Qualitatively normal right ventricular size and wall thickness with normal systolic function. 4. Aortic arch is widely patent. 5. Ductal arch is widely patent with normal intrauterine right to left flow. 6. Normal heart rate and rhythm and normal Dopplers. 7. Trivial apical pericardial effusion. The results and limitations of the echocardiogram and echocardiography in general, including the inability to exclude ASDs, some VSDs, minor valvar abnormalities, partial anomalous pulmonary venous return, persistent patent ductus arteriosus, and coarctation of the aorta, were explained to the patient. (more content not included)... [facility] FETALon 10-12-2024 + --- -----+-+ Pediatric Cardiology Echocardiogram Report + -----+-+ NAME: MELISSA BYRNE : 1995 PT ID#: [id number] Age: 29 years Sex: F STUDY DATE: 10/12/2024 10:05:33 AM ADA: 12/18/2024 GA: 30w3d Image Quality: Technically difficult and adequate. Referring Physician: Pamela Haskins Diagnosing Physician: Pamela Haskins Economics Professor: Melissa Pineda RDMS, GARCIA 2nd Economics Professor: Diagnosis: [id number] abnormality and damage, single fetus or unspecified Procedure Code: 95523, 77122, 93411 Echo, Complete (w/Doppler and color) Exam Location: [facility] (). Indications: Evaluate cardiac anatomy and function Color Doppler was utilized to interrogate the cardiac valves assessed. Spectral Doppler was utilized to determine the flow velocities and pressure gradients reported in this exam. History: Maternal diabetes Parameters: Single/Multi: [place] Position: position is cephalic Biometry: Biometry Table: Biparietal Diameter 6.85 cm Abdominal Circumference 25.60 cm Femur Length 5.24 cm Estimated Weight 1263.27 g Vessels: Three-vessel umbilical cord is present. Umbilical artery flow Doppler is normal. Umbilical venous flow Doppler is normal. Ductus Venosus Doppler is normal. Cerebral Artery Doppler is normal. UA S/D 2.7 UA PI 0.95 MCA PI 2.87 Rate and Rhythm: Normal heart rate and rhythm. HR 140 bpm Mechanical UT 84 ms Segmental Anatomy, Cardiac Position and Situs: The segmental anatomy and situs are normal. Normal visceral situs. The heart position is within the left hemithorax (levo position). Levocardia (apex to the left). The aorta is to the right of the pulmonary artery. Segmental anatomy is S,D,S. Systemic Veins: Right superior vena cava is right sided and drains normally to the right atrium. The inferior vena cava is right sided and inserts normally into the right atrium. Pulmonary Veins: At least one pulmonary vein on each side drains to the left atrium. Atria: The right atrium is normal in size. The left atrium is normal in size. Widely patent foramen ovale with normal intrauterine right to left flow. Tricuspid Valve: The tricuspid valve is normal. Tricuspid valve inflow Doppler is biphasic. There is no tricuspid valve regurgitation. Right Ventricle: There is qualitatively normal right ventricular size and wall thickness with normal systolic function. Mitral Valve: The mitral valve is normal. There is no mitral valve regurgitation. Mitral valve inflow Doppler is biphasic. Left Ventricle: Normal left ventricular size and wall thickness with normal systolic function. VSD: There is no obvious ventricular septal defect. Conotruncal Anatomy: There is normal conotruncal anatomy. RVOT: There is no right ventricular outflow tract obstruction. Pulmonary Valve: The pulmonary valve is normal. There is no pulmonary valve stenosis. There is no pulmonary valve regurgitation. Pulmonary Arteries: The main and branch pulmonary arteries appear normal. The main pulmonary artery is normal. LVOT: There is no left ventricular outflow tract obstruction. Aortic Valve: The aortic valve is normal with no stenosis and no regurgitation. Aorta: Aortic arch is widely patent. There is a left aortic arch. Ductus Arteriosus: Ductal arch is widely patent with normal intrauterine right to left flow. Pericardium: There is a trivial apical pericardial effusion. Measurements: 2D: Z-Score Aortic annulus 5.4 mm -0.33 MV annulus 7.5 mm -1.13 Pulmonary annulus 7.2 mm 0.34 TV annulus 8.2 mm -0.99 Summary 1. No structural abnormalities seen. 2. Normal left ventricular size and wall thickness with normal systolic function. 3. Qualitatively normal right ventricular size and wall thickness with normal systolic function. 4. Aortic arch is widely patent. 5. Ductal arch is widely patent with normal intrauterine right to left flow. 6. Normal heart rate and rhythm and normal Dopplers. 7. Trivial apical pericardial effusion. The results and limitations of the echocardiogram and echocardiography in general, including the inability to exclude ASDs, some VSDs, minor valvar abnormalities, partial anomalous pulmonary venous return, persistent patent ductus arteriosus, and coarctation of the aorta, were explained to the patient. Pamela Haskins DO *Electronically signed on 10/12/2024 at 12:38:17 PM Final CC [employer] Image : [id number] goDynamicsSISUID See Link below for Image Normal [facility] CNPNon 10-08-2024 CNPN Normal [facility] Bacteria Ur Culton Bacteria identified Cx Nom (U) ORGANISM ID: 1 10,000 -<50,000 CFU/ml Normal urogenital hima Streptococcus agalactiae (Group B streptococcus) was identified in this specimen, which is clinically relevant if the individual is . Normal [facility] Comment on above: Performed By: #### 6 30-4 ####[facility] LABIA [id number] [place] [address] [place] Prot/Creat Uron 10-04-2024 Protein/Creatinine (U) [Mass ratio] 0.10 mg/mg Normal <0.15 [facility] Comment on above: Order Comment: Speci men Type: URINE SPECIMENOrdering Facility: [facility] Address: [address] [place] [address] Result Comment: Adul t Proteinuria Categories:<0.15 mg/mg is considered normal to mildly increased0.15 - 0.50 mg/mg is considered moderately increased>0.50 mg/mg is considered severely increasedKDIGO. (2013). KDIGO 2012 Clinical Practice Guideline for the Evaluation and Management of Chronic Kidney Disease. Official Journal of the International Society of Nephrology, 3(1), 1-150. Performed By: #### 2 890-2 ####[facility] LABCLIA [id number] [place] [address] [place] Protein/Creatinine (U) [Mass ratio]on 10-04-2024 Creatinine (U) [Mass/Vol] 67.2 mg/dL Normal 20.0-300.0 [facility] Comment on above: Order Comment: Speci men Type: URINE SPECIMENOrdering Facility: [facility] Address: [address] [place] [address] Performed By: #### 2 890-2 ####[facility] LABCLIA [id number] [place] [id number] [facility] Protein (U) [Mass/Vol] 7 mg/dL Normal 0-20 [facility] Comment on above: Order Comment: Speci men Type: URINE SPECIMENOrdering Facility: [facility] Address: [address] [place] [address] Performed By: #### 2 890-2 ####[facility] LABCLIA [id number] [place] [id number] [place] CNPNon 10-02-2024 CNPN Normal [facility] CNPNon 09-27-2024 CNPN Normal [facility] OB Triage Physician Noteon 0 09-25-2024 OB Triage Physician Note [facility] Medical Records Department [address] [place] [address] OB Triage Physician Note 09/25/24 0934 MR#: [id number] Acct: [id number] Name: MELISSA BYRNE Rep #: [id number] : 1995 29 From: Leonie Waldron CNM PCP: Dr. Jamari Byrne MD Status:DEP CLI Y Location: [facility] HPI - General HPI Narrative MELISSA BYRNE, is a 29 F who presents at 27 weeks with ADA 12/23/24 with complaints of abdominal tightening. No vaginal bleeding, leakage of fluid or other symptoms. [facility] Medical History Seizures Asthma Osteoarthritis Diabetes Home Medications ???Medication ???Instructions ???Recorded ???Last Taken ???Type ibuprofen 600 mg tablet 600 mg PO Q6H PRN Pain #60 TABLETS 01/22/17 Unknown Rx glipizide 5 mg tablet 5 mg PO BID 01/23/18 Unknown Histo ry metformin 1,000 mg tablet 500 mg PO BIDCM 01/23/18 Unknown H istory buspirone 15 mg tablet 15 mg PO QDAY 02/26/24 Unknown His tory fluconazole 150 mg tablet 150 mg PO Q3D 2 doses #2 tabs 02/07 03/02 Unknown Rx fluoxetine 40 mg capsule 40 mg PO QDAY 02/26/24 Unknown His tory insulin glargine 100 unit/mL (3 unit subcut 02/26/24 Unknown Histo ry mL) subcutaneous pen (Lantus Solostar U-100 Insulin) insulin lispro 100 unit/mL subcut 02/26/24 Unknown History subcutaneous pen (Humalog KwikPen (U-100) Insulin) lumateperone 21 mg capsule 21 mg PO QDAY 02/26/24 Unknown His tory (Caplyta) Allergy/AdvReac Type Severity Reaction Status Date / Time No Known Allergies Allergy Verified 02/26/24 13:44 Family History Other Heart disease Hyperlipemia Surgical History History of dilation and curettage History of oral surgery History of cholecystectomy Social History Smoking Status: Current every day smoker alcohol intake: never substance use type: does not use History Elective abortions Hx Para 0 Spontaneous abortions Hx # Term Pregnancies Ectopic pregnancies Hx # Pregnancies Multiple births # of living children NST FHR Rate Baby A Baseline: 140 Variability:: Moderate Accelerations:: 15 x 15 Decelerations:: None Uterine Activity:: Irritability, nothing palpated Assessment Plan (1) 27 weeks gestation of : (2) Uterine irritability: PLAN: Plan 1) No signs of labor 2) PO hydration 3) D/C home 09/25/24935 Date Leonie MOHR Cosigner Signature (if applicable): Date CC: JULIO Waldron; Dr. Jamari Byrne MD Signed Normal [facility] BACTERIAL VAGINOSIS NAATon 0 09-24-2024 Lactobacillus crispatus+gasseri+dez senii + Gardnerella vaginalis + Atopobium vaginae rRNA SUMIT+probe Ql (Vag fld) Detected Abnormal Not detected [facility] Comment on above: Order Comment: Speci men Type: SWABOrdering Facility: [facility] Address: [address] [place] [address] Performed By: #### C VTV, BVAMP ####[facility] LABCLIA [id number] [place] [address] [place] Bacteria Ur Culton Bacteria identified Cx Nom (U) ORGANISM ID: 1 10,000 -<50,000 CFU/ml Normal urogenital hima Normal [facility] Comment on above: Performed By: #### 6 30-4 ####[facility] LABCLIA [id number] [place] [address] [place] JOSUÉ/TRICHOMONAS NAATon 0 09-24-2024 C. glabrata RNA SUMIT+probe Ql (Vag fld) Not detected Normal Not detected [facility] Comment on above: Order Comment: Speci men Type: SWABOrdering Facility: [facility] Address: [address] [place] [address] Performed By: #### C VTV, BVAMP ####[facility] LABCLIA [id number] [place] [address] [place] Josué sp DNA SUMIT+probe Ql (Vag fld) Not detected Normal Not detected [facility] Comment on above: Order Comment: Speci men Type: SWABOrdering Facility: [facility] Address: [address] [place] [address] Result Comment: The Josué species group target includes C. albicans, C. tropicalis, C. parapsilosis, and C. dubliniensis. Performed By: #### C VTV, BVAMP ####[facility] LABCLIA [id number] [address] [place] [facility] T. vaginalis DNA SUMIT+probe Ql (Unsp spec) Not detected Normal Not detected [facility] Comment on above: Order Comment: Speci men Type: SWABOrdering Facility: [facility] Address: [address] [place] [address] Performed By: #### C VTV, BVAMP ####[facility] LABCLIA [id number] [address] [place] CNOVon 09-24-2024 CNOV Normal [facility] CNPNon 09-24-2024 CNPN Normal [facility] UA DIP, URINE (POC)on 2024 BILIRUBIN UA (POCT) Negative Negative [facility] CLARITY UA (POCT) Clear [facility] COLOR UA (POCT) Yellow [facility] GLUCOSE UA (POCT) Negative Negative mg/dL [facility] Hemoglobin Ql (U) Negative Negative [facility] Interpretation and review of laboratory results Abnormal [facility] KETONE UA (POCT) 15 mg/dL Abnormal Negative [facility] LEUKOCYTES UA (POCT) Moderate Abnormal Negative [facility] NITRITE UA (POCT) Negative Negative [facility] PH UA (POCT) 7 4.5 - 8.0 [facility] Protein Ql (U) Negative Negative mg/dL [facility] SPECIFIC GRAVITY UA (POCT) 1.02 1.005 - 1.030 [facility] UROBILINOGEN UA (POCT) 1 Normal E.U./dL [facility] Location:[facility] [address] [facility], [place], [address] [facility] POINT OF CARE [facility] CNOVon 09-20-2024 CNOV Normal [facility] HEMOGLOBIN A1C (POC)on 09-20 HbA1c (Bld) [Mass fraction] 5.2 % 4.3 - 5.6 % [facility] Comment on above: Location:[facility], [address] [place] [address], [facility] Point of care (POC) Hemoglobin A1c (HGBA1C) testing is intended to assess glucose control and provide a management tool for patients known to have diabetes and their healthcare providers. Target HGBA1C levels may depend on specific clinical circumstances. POC HGBA1C is not intended for use as a diagnostic or screening test; laboratory-based testing should be used for diagnostic purposes. The following information is supplemental and may not be applicable to specific diabetes management situations: The POC device fruit canner provides a normal range of 4.2% to 6.5% for the HGBA1C POC test. However, the [place] [employer] guidelines indicate that patients with HGBA1C in the range of 5.7% to 6.4% are at increased risk for development of diabetes and that intervention by lifestyle modification may be beneficial. A HGBA1C level greater than or equal to 6.5% is considered diagnostic of diabetes, pending confirmatory testing. Use of HGBA1C testing to evaluate glucose control may not be appropriate for patients with hemoglobin variants or other conditions (e.g. anemia) that alter red blood cell lifespan. [facility] CNPNon 09-11-2024 CNPN Normal [facility] CBC W Auto Differential pane l (Bld)on 09-08-2024 Basophils (Bld) [#/Vol] 0.03 10*3/uL Normal <0.11 [facility] Comment on above: Order Comment: Speci men Type: BLOOD SPECIMENOrdering Facility: [facility] Address: [address] [place] [address] Performed By: #### 5 7021-8 ####[facility] [id number] [place] [address] [place] Basophils/100 WBC (Bld) 0.3 % Normal [facility] Comment on above: Order Comment: Speci men Type: BLOOD SPECIMENOrdering Facility: [facility] Address: [address] [place] [address] Performed By: #### 5 7021-8 ####[facility] [id number] [place] [address] [place] Differential cell count method Nom (Bld) Auto Normal [facility] Comment on above: Order Comment: Speci men Type: BLOOD SPECIMENOrdering Facility: [facility] Address: [address] [place] [address] Performed By: #### 5 7021-8 ####[facility] [id number] [place] [address] [place] Eosinophils (Bld) [#/Vol] 0.15 10*3/uL Normal <0.46 [facility] Comment on above: Order Comment: Speci men Type: BLOOD SPECIMENOrdering Facility: [facility] Address: [address] [place] [address] Performed By: #### 5 7021-8 ####[facility]YNC[facility] [id number] [place] [address] [place] Eosinophils/100 WBC (Bld) 1.7 % Normal [facility] Comment on above: Order Comment: Speci men Type: BLOOD SPECIMENOrdering Facility: [facility] Address: [address] [place] [address] Performed By: #### 5 7021-8 ####[facility] [id number] [place] [address] [place] Erythrocyte distribution width (RBC) [Ratio] 13.6 % Normal 11.5-15.0 [facility] Comment on above: Order Comment: Speci men Type: BLOOD SPECIMENOrdering Facility: [facility] Address: [address] [place] [address] Performed By: #### 5 7021-8 ####[facility] [id number] [place] [address] [place] Hematocrit (Bld) [Volume fraction] 35.0 % Low 36.0-46.0 [facility] Comment on above: Order Comment: Speci men Type: BLOOD SPECIMENOrdering Facility: [facility] Address: [address] [place] [address] Performed By: #### 5 7021-8 ####[facility] [id number] [place] [address] [place] Hemoglobin (Bld) [Mass/Vol] 12.2 g/dL Normal 11.5-15.5 [facility] Comment on above: Order Comment: Speci men Type: BLOOD SPECIMENOrdering Facility: [facility] Address: [address] [place] [address] Performed By: #### 5 7021-8 ####[facility]ENCYNCA [id number] [place] [address] [place] Immature granulocytes (Bld) [#/Vol] 0.06 10*3/uL Normal <0.10 [facility] Comment on above: Order Comment: Speci men Type: BLOOD SPECIMENOrdering Facility: [facility] Address: [address] [place] [address] Performed By: #### 5 7021-8 ####[facility] [id number] [place] [address] [place] Immature granulocytes/100 WBC (Bld) 0.7 % Normal [facility] Comment on above: Order Comment: Speci men Type: BLOOD SPECIMENOrdering Facility: [facility] Address: [address] [place] [address] Performed By: #### 5 7021-8 ####[facility]CL[facility] [id number] [place] [address] [place] Lymphocytes (Bld) [#/Vol] 2.07 10*3/uL Normal 1.00-4.00 [facility] Comment on above: Order Comment: Speci men Type: BLOOD SPECIMENOrdering Facility: [facility] Address: [address] [place] [address] Performed By: #### 5 7021-8 ####[facility] [id number] [place] [address] [place] Lymphocytes/100 WBC (Bld) 23.7 % Normal [facility] Comment on above: Order Comment: Speci men Type: BLOOD SPECIMENOrdering Facility: [facility] Address: [address] [place] [address] Performed By: #### 5 7021-8 ####[facility] EMERGENCYKLAUSLIA [id number] [place] [address] [place] MCH (RBC) [Entitic mass] 30.5 pg Normal 26.0-34.0 [facility] Comment on above: Order Comment: Speci men Type: BLOOD SPECIMENOrdering Facility: [facility] Address: [address] [place] [address] Performed By: #### 5 7021-8 ####[facility] [id number] [place] [address] [place] MCHC (RBC) [Mass/Vol] 34.9 g/dL Normal 30.5-36.0 [facility] Comment on above: Order Comment: Speci men Type: BLOOD SPECIMENOrdering Facility: [facility] Address: [address] [place] [address] Performed By: #### 5 7021-8 ####[facility]ENCYNCL[facility] [id number] [place] [address] [place] MCV (RBC) [Entitic vol] 87.5 fL Normal 80.0-100.0 [facility] Comment on above: Order Comment: Speci men Type: BLOOD SPECIMENOrdering Facility: [facility] Address: [address] [place] [address] Performed By: #### 5 7021-8 ####[facility]ERGENCYNCLI [id number] [place] [address] [place] Monocytes (Bld) [#/Vol] 0.37 10*3/uL Normal <0.87 [facility] Comment on above: Order Comment: Speci men Type: BLOOD SPECIMENOrdering Facility: [facility] Address: [address] [place] [address] Performed By: #### 5 7021-8 ####[facility] [id number] [place] [address] [place] Monocytes/100 WBC (Bld) 4.2 % Normal [facility] Comment on above: Order Comment: Speci men Type: BLOOD SPECIMENOrdering Facility: [facility] Address: [address] [place] [address] Performed By: #### 5 7021-8 ####[facility] [id number] [place] [address] [place] Neutrophils (Bld) [#/Vol] 6.04 10*3/uL Normal 1.45-7.50 [facility] Comment on above: Order Comment: Speci men Type: BLOOD SPECIMENOrdering Facility: [facility] Address: [address] [place] [address] Performed By: #### 5 7021-8 ####[facility] [id number] [place] [address] [place] Neutrophils/100 WBC (Bld) 69.4 % Normal [facility] Comment on above: Order Comment: Speci men Type: BLOOD SPECIMENOrdering Facility: [facility] Address: [address] [place] [address] Performed By: #### 5 7021-8 ####[facility] [id number] [place] [address] [place] Nucleated RBC (Bld) [#/Vol] 10*3/uL Normal <0.01 [facility] Comment on above: Order Comment: Speci men Type: BLOOD SPECIMENOrdering Facility: [facility] Address: [address] [place] [address] Performed By: #### 5 7021-8 ####[facility] [id number] [place] [address] [place] Nucleated RBC/100 WBC (Bld) [Ratio] 0.0 /100 WBC Normal [facility] Comment on above: Order Comment: Speci men Type: BLOOD SPECIMENOrdering Facility: [facility] Address: [address] [place] [address] Performed By: #### 5 7021-8 ####[facility] [id number] [place] [address] [place] Platelet mean volume (Bld) [Entitic vol] 9.5 fL Normal 9.0-12.7 [facility] Comment on above: Order Comment: Speci men Type: BLOOD SPECIMENOrdering Facility: [facility] Address: [address] [place] [address] Performed By: #### 5 7021-8 ####[facility] [id number] [place] [address] [place] Platelets (Bld) [#/Vol] 282 10*3/uL Normal 150-400 [facility] Comment on above: Order Comment: Speci men Type: BLOOD SPECIMENOrdering Facility: [facility] Address: [address] [place] [address] Performed By: #### 5 7021-8 ####[facility] [id number] [place] [address] [place] RBC (Bld) [#/Vol] 4.00 10*6/uL Normal 3.90-5.20 [facility] Comment on above: Order Comment: Speci men Type: BLOOD SPECIMENOrdering Facility: [facility] Address: [address] [place], [place] [address] Performed By: #### 5 7021-8 ####[facility] [id number] [place] [address] [place] WBC (Bld) [#/Vol] 8.72 10*3/uL Normal 3.70-11.00 [facility] Comment on above: Order Comment: Speci men Type: BLOOD SPECIMENOrdering Facility: [facility] Address: [address] [place] [address] Performed By: #### 5 7021-8 ####[facility] [id number] [place] [address] [place] Reagin and Treponema pallidu m IgG and IgM [Interp]on 09-08-2024 T. pallidum IgG+IgM IA Ql (S) Non-Reactive Nonreactive [facility] T. pallidum IgG+IgM IA Ql (S) Non-Reactive Normal Nonreactive [facility] Comment on above: Order Comment: Speci men Type: BLOOD SPECIMENOrdering Facility: [facility] Address: [address] [place] [address] Performed By: #### 7 3752-8 ####[facility] [id number] [place] [address] [place] Reagin+T pallidum IgG+IgM Se rPl-Impon 09-08-2024 Reagin and Treponema pallidum IgG and IgM [Interp] Cannot exclude recent Treponemal infection if specimen collected within 7-10 days after appearance of suspect lesions or 2-3 weeks after an exposure. Clinical correlation is required. Normal [facility] Comment on above: Order Comment: Speci men Type: BLOOD SPECIMENOrdering Facility: [facility] Address: [address] [place] [address] Performed By: #### 7 3752-8 ####[facility] LAB[facility] [id number] [place] [address] [place] SYPHILIS TREPONEMAL W/REFLEX on 09-08-2024 Reagin and Treponema pallidum IgG and IgM [Interp] Cannot exclude recent Treponemal infection if specimen collected within 7-10 days after appearance of suspect lesions or 2-3 weeks after an exposure. Clinical [facility] Examination level ultrasound on 09-03-2024 [facility] Examination level ultrasound on 09-02-2024 [facility]iology [facility] CNPNon 08-24-2024 CNPN Normal [facility] FETALon 08-24-2024 + --- -----+-+ Pediatric Cardiology Echocardiogram Report + -----+-+ NAME: MELISSA BYRNE : 1995 PT ID#: [id number] Age: 29 years Sex: F STUDY DATE: 08/24/2024 12:29:33 PM ADA: 12/18/2024 GA: 23w3d Image Quality: Technically difficult and inadequate. Referring Physician: Pooja Latham Diagnosing Physician: Pamela Haskins Economics Professor: Idalmis Hough [facility] 2nd Economics Professor: Diagnosis: [id number] abnormality and damage, single fetus or unspecified Procedure Code: 15447, 70778, 46041 Echo, Complete (w/Doppler and color) Exam Location: [facility] (). Indications: Evaluate cardiac anatomy and function Color Doppler was utilized to interrogate the cardiac valves assessed. Spectral Doppler was utilized to determine the flow velocities and pressure gradients reported in this exam. History: Maternal Diabetes Parameters: Single/Multi: [place] Position: position is transverse Biometry: Biometry Table: Biparietal Diameter 5.12 cm Abdominal Circumference 17.59 cm Femur Length 3.72 cm Estimated Weight 469.42 g Vessels: Three-vessel umbilical cord is present. Umbilical artery flow Doppler is normal. Umbilical venous flow Doppler is normal. Ductus Venosus Doppler is normal. Cerebral Artery Doppler is normal. UA S/D 3.2 UA PI 1.10 MCA PI 1.49 Rate and Rhythm: Normal heart rate and rhythm. HR 149 bpm Mechanical UT 110 ms Segmental Anatomy, Cardiac Position and Situs: The segmental anatomy and situs are normal. Normal visceral situs. The heart position is within the left hemithorax (levo position). Levocardia (apex to the left). The aorta is to the right of the pulmonary artery. Segmental anatomy is S,D,S. Systemic Veins: Right superior vena cava is right sided and drains normally to the right atrium. The inferior vena cava is right sided and inserts normally into the right atrium. Pulmonary Veins: At least one pulmonary vein on each side drains to the left atrium. Atria: The right atrium is normal in size. The left atrium is normal in size. Widely patent foramen ovale with normal intrauterine right to left flow. Tricuspid Valve: The tricuspid valve is normal. There is no tricuspid valve regurgitation. Right Ventricle: There is qualitatively normal right ventricular size and wall thickness with normal systolic function. Mitral Valve: The mitral valve is normal. There is no mitral valve regurgitation. Left Ventricle: Normal left ventricular size and wall thickness with normal systolic function. VSD: There is no obvious ventricular septal defect. Conotruncal Anatomy: There is normal conotruncal anatomy. RVOT: There is no right ventricular outflow tract obstruction. Pulmonary Valve: The pulmonary valve is normal. There is no pulmonary valve stenosis. There is no pulmonary valve regurgitation. Pulmonary Arteries: The main and branch pulmonary arteries appear normal. The main pulmonary artery is normal. LVOT: There is no left ventricular outflow tract obstruction. Aortic Valve: The aortic valve is normal with no stenosis and no regurgitation. Aorta: Aortic arch, specifically transverse aortic arch, suboptimally visualized due to acoustic windows. There is a left aortic arch. Ductus Arteriosus: Ductal arch is widely patent with normal intrauterine right to left flow. Pericardium: There is no pericardial effusion. Measurements: 2D: Z-Score Aortic annulus 3.5 mm -1.08 MV annulus 5.6 mm -0.66 Pulmonary annulus 5.1 mm 0.56 TV annulus 5.5 mm -1.12 Summary 1. No obvious structural abnormalities seen. 2. Normal left ventricular size and wall thickness with normal systolic function. 3. Qualitatively normal right ventricular size and wall thickness with normal systolic function. 4. Aortic arch, specifically transverse aortic arch, suboptimally visualized due to acoustic windows. 5. Ductal arch is widely patent with normal intrauterine right to left flow. 6. Normal heart rate and rhythm with normal Dopplers. 7. No pericardial effusion. Amniotic fluid volume appears subjectively low. The results and limitations of the echocardiogram and echocardiography in general, including the inability to exclude ASDs, some VSDs, minor valvar abnormalities, partial anomalous pulmonary venous return, persistent patent ductus arteriosus, and coarctation of the aorta, were explained to the patient. Pamela Haskins DO *Electronically signed on 08/24/2024 at 1:34:49 PM Final (Updated) [facility] [employer] Image : [id number] See Link below for Image Normal [facility] 08-20-2024 [facility] Normal [facility] 08-18-2024 [facility] Normal [facility] 08-14-2024 [facility] Normal [facility] 08-10-2024 [facility] Normal [facility] Examination level ultrasound on 08-10-2024 Indication Detailed anatomic survey Maternal obesity, BMI >30, Diabetes mellitus, History of preeclampsia Impression The patient is referred for a detailed anatomic survey. - Single, live, intrauterine . - biometry is consistent with the established gestational age. - No malformations were visualized on a detailed anatomic survey, although some anatomical structures were suboptimally seen as detailed below. - The amniotic fluid volume is normal amount. - The placenta is anterior, fundal. - The Transabdominal cervical length measures 34.8 mm with no evidence of funneling or other dynamic changes. - Not all structural malformations can be detected by ultrasound examination. Recommendations Return in 3-4 weeks for growth and to complete anatomic survey echocardiogram is scheduled Maternal Assessment Height 157 cm Height (ft) 5 ft Height (in) 2 in Physical Exam Initial weight (lb) 171 lb Initial BMI 31.28 kg/m Maternal assessment other: 3 Para 1 Method Transabdominal ultrasound examination. View: Suboptimal view: limited by position [place] . Number of fetuses: 1 Dating LMP on: 03/13/2024 GA by LMP 21 w + 3 d ADA by LMP: 12/18/2024 GA by prior assessment 21 w + 3 d ADA by prior assessment: 12/18/2024 Ultrasound examination on: 08/10/2024 GA by U/S based upon: AC, BPD, Femur, HC GA by U/S 20 w + 4 d ADA by U/S: 12/24/2024 Assigned: based on stated ADA, selected on 08/10/2024 Assigned GA 21 w + 3 d Assigned ADA: 12/18/2024 General Evaluation Cardiac activity present. FHR 149 bpm. movements: present. Presentation: breech Placenta: Placental site: anterior, fundal Umbilical cord: Cord vessels: 3 vessel cord Amniotic fluid: Amount of AF: normal amount. MVP 4.1 cm Growth Overview Exam date GA BPD (mm) HC (mm) AC (mm) FL (mm) HL (mm) EFW (g) 07/13/2024 17w 3d 34.2 14% 133.5 25% 116.9 49% 23.1 39% 181 25% 08/10/2024 21w 3d 46.5 6% 184.8 32% 156.5 24% 32.6 21% 32.6 30% 361 11% Biometry Standard BPD 46.5 mm 20w 0d 6% Hadlock OFD 67.9 mm 21w 2d 68% Nicolaides HC 184.8 mm 20w 6d 32% Anna Cerebellum tr 20.1 mm 19w 2d 6% Hill Nuchal fold 4.2 mm AC 156.5 mm 20w 6d 24% Hadlock Femur 32.6 mm 20w 2d 21% Anna Humerus 32.6 mm 21w 0d 30% Anna EFW 361 g 20w 3d 11% Hadlock EFW (lb) 0 lb EFW (oz) 13 oz EFW by: Hadlock (HC-AC-FL) Extended Waistband Setter Lockstitch 7.6 mm CM 5.7 mm 61% Nicolaides Extremities / Bony Struc FL / HC 0.18 Other Structures FHR 149 bpm Anatomy Cranium: normal Lateral ventricles: normal Choroid plexus: normal Midline falx: normal Cavum septi pellucidi: normal Cerebellum: suboptimally visualized Cisterna magna: suboptimally visualized Head / Neck Vermis: normal Neck: normal Nuchal fold: normal Lips: normal Profile: normal Nose: normal Face Maxilla: normal Mandible: normal Orbits: normal Lens: normal 4-chamber view: normal RVOT view: normal LVOT view: normal 3-vessel view: normal 1-zbmqbj-wspbpif view: normal Heart / Thorax Situs: situs solitus (normal) Aortic arch view: suboptimally visualized SVC: normal IVC: normal Cardiac axis: normal Rt lung: normal Lt lung: normal Diaphragm: normal Cord insertion: normal Stomach: normal Kidneys: normal Bladder: normal Genitals: normal Abdomen Abdom. wall: normal Cervical spine: normal Thoracic spine: normal Lumbar spine: normal Sacral spine: normal Arms: normal Legs: normal Rt upper arm: normal Rt forearm: normal Rt hand: normal Rt fingers: normal Lt upper arm: normal Lt forearm: normal Lt hand: normal Lt fingers: normal Rt upper leg: normal Rt lower leg: normal Rt foot: normal Lt upper leg: normal Lt lower leg: normal Lt foot: normal sex: female Wants to know sex: yes Doppler Arterial Umbilical A PI 1.23 26% Dusty Umbilical A S / D 3.59 36% Heam Maternal Structures Uterus / Cervix Uterus: Visualized Cervix: Visualized Approach: Transabdominal Cervical length 34.8 mm Other: Patient declined transvaginal ultrasound for cervical length. Ovaries / Tubes / Adnexa Rt ovary: Visualized Lt ovary: Visualized Performed By: Idania Snyder RDMS, RVT Read By: Pooja Latham M.D. MATERNAL MEDICINE [facility] Radiology Study observation (narrative) [facility] URINE OB DIP B/Oon Glucose Ql (U) Negative Neg mg/dL [facility] Interpretation and review of laboratory results Normal [facility] Protein.monoclonal (U) [Mass/Vol] Negative Neg mg/dL [facility] CNPNon 08-08-2024 CNPN Normal [facility] CNPNon 08-01-2024 CNPN Normal [facility] CNOVon 07-26-2024 CNOV Normal [facility] CNOVon 07-23-2024 CNOV Normal [facility] CNPNon 07-20-2024 CNPN Normal [facility] CNPNon 07-14-2024 CNPN Normal [facility] Examination level ultrasound on 07-13-2024 Indication Early anatomic survey Diabetes mellitus, Maternal obesity, BMI >30 Impression The patient is referred for a standard anatomic survey. - Single, live, intrauterine . - biometry is consistent with the established gestational age. - No malformations were visualized on a standard anatomic survey, although some anatomical structures were suboptimally seen as detailed below. - The amniotic fluid volume is normal amount. - The placenta is anterior. - The Transabdominal cervical length measures 33 mm with no evidence of funneling or other dynamic changes. - Not all structural malformations can be detected by ultrasound examination. Recommendations Return around 20 weeks for detailed anatomic survey Maternal Assessment Height 157 cm Height (ft) 5 ft Height (in) 2 in Physical Exam Initial weight (lb) 171 lb Initial BMI 31.28 kg/m Maternal assessment other: 3 Para 1 Method Transabdominal ultrasound examination. View: Suboptimal view: limited by early gestational age [place] . Number of fetuses: 1 Dating LMP on: 03/13/2024 GA by LMP 17 w + 3 d ADA by LMP: 12/18/2024 GA by prior assessment 17 w + 3 d ADA by prior assessment: 12/18/2024 Ultrasound examination on: 07/13/2024 GA by U/S based upon: AC, BPD, Femur, HC GA by U/S 16 w + 6 d ADA by U/S: 12/22/2024 Assigned: based on stated ADA, selected on 07/13/2024 Assigned GA 17 w + 3 d Assigned ADA: 12/18/2024 General Evaluation Cardiac activity present. FHR 152 bpm. movements: present. Presentation: transverse head left Placenta: Placental site: anterior Umbilical cord: Cord vessels: 3 vessel cord Amniotic fluid: Amount of AF: normal amount Biometry Standard BPD 34.2 mm 16w 4d 14% Hadlock OFD 48.7 mm 16w 5d 34% Nicolaides HC 133.5 mm 16w 4d 25% Anna AC 116.9 mm 17w 3d 49% Hadlock Femur 23.1 mm 17w 0d 39% Anna EFW 181 g 17w 0d 25% Hadlock EFW (lb) 0 lb EFW (oz) 6 oz EFW by: Hadlock (HC-AC-FL) Extended Waistband Setter Lockstitch 4.2 mm Extremities / Bony Struc FL / HC 0.17 44% Hadlock Other Structures FHR 152 bpm Anatomy Cranium: normal Lateral ventricles: normal Choroid plexus: normal Midline falx: normal Cerebellum: normal Cisterna magna: normal Lips: normal Profile: normal 4-chamber view: normal RVOT view: normal LVOT view: normal 3-vessel view: normal 2-ftiuor-evlkejn view: normal Heart / Thorax Diaphragm: normal Cord insertion: normal Stomach: normal Kidneys: normal Bladder: normal Cervical spine: suboptimally visualized Thoracic spine: suboptimally visualized Lumbar spine: suboptimally visualized Sacral spine: suboptimally visualized Arms: normal Legs: normal Rt upper arm: normal Rt forearm: normal Rt hand: normal Lt upper arm: normal Lt forearm: normal Lt hand: normal Rt upper leg: normal Rt lower leg: normal Rt foot: normal Lt upper leg: normal Lt lower leg: normal Lt foot: normal sex: female Wants to know sex: yes Maternal Structures Uterus / Cervix Uterus: Visualized Cervix: Visualized Approach: Transabdominal Cervical length 33.0 mm Ovaries / Tubes / Adnexa Rt ovary: Not visualized Lt ovary: Visualized Performed By: Idania Snyder RDMS, RVT Read By: Pooja Latham M.D. MATERNAL MEDICINE [facility] Radiology Study observation (narrative) [facility] URINE OB DIP B/OOrdered By: Rebeca Vazquez on 07-13-2024 Glucose Ql (U) 100 mg/dL Neg [facility] Interpretation and review of laboratory results Normal [facility] Protein.monoclonal (U) [Mass/Vol] Negative Neg mg/dL [facility] CNPNon 07-04-2024 CNPN Normal [facility] CNPNon 07-02-2024 CNPN Normal [facility] Influenza virus A and B and SARS-CoV-2 (COVID-19) identified SUMIT+probe Nom (Resp)on 07-01-2024 FLUAV RNA SUMIT+probe Ql (Resp) Detected Abnormal Not Detected [facility] FLUBV RNA SUMIT+probe Ql (Resp) Not detected Not Detected [facility] Interpretation and review of laboratory results Abnormal [facility] SARS-CoV-2 (COVID-19) RNA SUMIT+probe Ql (Resp) Not detected Not Detected [facility] This assay is an FDA-cleared, in vitro diagnostic nucleic acid amplification test for the qualitative detection and differentiation of SARS CoV-2/ Influenza A/B from nasopharyngeal specimens collected from individuals with signs and symptoms of respiratory tract infections, and has been validated for use at [facility]. Negative results do not preclude COVID-19/ Influenza A/B infections and should not be used as the sole basis for diagnosis, treatment, or other management decisions. Testing for SARS CoV-2 is recommended only for patients who meet current clinical and/or epidemiological criteria defined by federal, state, or local public health directives. [facility] FLUAV RNA SUMIT+probe Ql (Resp) Detected Abnormal Not Detected [facility] Comment on above: Order Comment: OVER is reported when the result is greater than the clinically reportable range. Performed By: #### 5 8077-9 #### JACQUELYN LOPEZ ([id number]) [facility] [address] [place] [address] FLUBV RNA SUMIT+probe Ql (Resp) Not detected Normal Not Detected [facility] Comment on above: Order Comment: OVER is reported when the result is greater than the clinically reportable range. Performed By: #### 5 8077-9 #### JACQUELYN LOPEZ ([id number]) [facility] [address] [place] [address] SARS-CoV-2 (COVID-19) RNA SUMIT+probe Ql (Resp) Not detected Normal Not Detected [facility] Comment on above: Order Comment: OVER is reported when the result is greater than the clinically reportable range. Performed By: #### 5 8077-9 #### JACQUELYN LOPEZ ([id number]) [facility]) [address] [place] [address] XR CHEST 2 VIEWSon XR CHEST 2 VIEWS STUDY: Chest Radiographs; 07/01/2024 at 8:35 PM. INDICATION: Fever and cough.. COMPARISON: XR chest 10/23/2020. ACCESSION NUMBER(S): [id number] ORDERING CLINICIAN: SIXTO MYERS TECHNIQUE: Frontal and lateral chest. FINDINGS: CARDIOMEDIASTINAL SILHOUETTE: Cardiomediastinal silhouette is normal in size and configuration. LUNGS: Lungs are clear. ABDOMEN: No remarkable upper abdominal findings. BONES: No acute osseous changes. IMPRESSION: No focal pulmonary pathology. Signed by Leo Paris M.D. [facility] XR Chest 2 Viewson No focal pulmonary pathology. Signed by Leo Paris M.D. TELERADIOLOGY STUDY: Chest Radiographs; 07/01/2024 at 8:35 PM. INDICATION: Fever and cough.. COMPARISON: XR chest 10/23/2020. ACCESSION NUMBER(S): [id number] ORDERING CLINICIAN: SIXTO MYERS TECHNIQUE: Frontal and lateral chest. FINDINGS: CARDIOMEDIASTINAL SILHOUETTE: Cardiomediastinal silhouette is normal in size and configuration. LUNGS: Lungs are clear. ABDOMEN: No remarkable upper abdominal findings. BONES: No acute osseous changes. TELERADIOLOGY Leo Paris MD - 07/01/2024 STUDY: Chest Radiographs; 07/01/2024 at 8:35 PM. INDICATION: Fever and cough.. COMPARISON: XR chest 10/23/2020. ACCESSION NUMBER(S): [id number] ORDERING CLINICIAN: SIXTO MYERS TECHNIQUE: Frontal and lateral chest. FINDINGS: CARDIOMEDIASTINAL SILHOUETTE: Cardiomediastinal silhouette is normal in size and configuration. LUNGS: Lungs are clear. ABDOMEN: No remarkable upper abdominal findings. BONES: No acute osseous changes. IMPRESSION: No focal pulmonary pathology. Signed by Leo Paris M.D. [facility] Work Phone: Radiology Study observation (narrative) [facility] Work Phone: XR Chest 2 ViewsOrdered By: Leo Paris on 07-01-2024 [facility] Work Phone: CNPNon 06-28-2024 [facility] CNPNon 06-25-2024 [facility] CNPNon 06-22-2024 [facility] nuchal translucency me asured by Estevan 06-15-2024 Indication First trimester anatomic survey Maternal obesity, BMI >30, Diabetes mellitus Impression The patient is referred for a first trimester anatomy scan including nuchal translucency measurement as clinically indicated. - Single, live, intrauterine . - [place] rump length measurement is consistent with the established gestational age. - A qualitative screen of the nuchal translucency and other anatomic structures was unremarkable on an incomplete first trimester anatomic assessment. - Not all structural malformations can be detected by ultrasound examination. Maternal Structures: Right Ovary: Size 27 mm x 25 mm x 28 mm Left Ovary: Size 27 mm x 26 mm x 21 mm Recommendations - A standard anatomic survey at 16 weeks and a detailed exam at 20 weeks is recommended for increased risk. - See progress note for additional visit details Maternal Assessment Height 157 cm Height (ft) 5 ft Height (in) 2 in Physical Exam Initial weight (lb) 171 lb Initial BMI 31.28 kg/m Maternal assessment other: 3 Para 1 Method Transabdominal ultrasound examination [place] . Number of fetuses: 1 Dating LMP on: 03/13/2024 GA by LMP 13 w + 3 d ADA by LMP: 12/18/2024 GA by prior assessment 13 w + 3 d ADA by prior assessment: 12/18/2024 Ultrasound examination on: 06/15/2024 GA by U/S based upon: CRL GA by U/S 13 w + 0 d ADA by U/S: 12/21/2024 Assigned: based on stated ADA, selected on 06/15/2024 Assigned GA 13 w + 3 d Assigned ADA: 12/18/2024 General Evaluation Cardiac activity present Placenta: anterior Cord vessels: 3 vessel cord Amniotic fluid: normal amount Biometry Standard FHR 159 bpm CRL 67.3 mm 13w 0d 21% [facility]imester Anatomy Calvarium: normal Falx cerebri: normal Choroid plexus: normal Profile: normal Nasal bone: normal Retronasal triangle: normal Maxilla: normal Mandible: normal Nuchal translucency: Unremarkable Situs: normal Cardiac position: suboptimal Cardiac axis: suboptimal 4-chamber view: suboptimal 4-chamber view with color: suboptimal 8-maxccl-avudhew view: suboptimal Abdominal cord insertion: normal Stomach: normal Kidneys: suboptimal Bladder: normal Color doppler of perivesical umbilical arteries: normal Vertebral alignment: normal Arms: normal Hands: normal Legs: normal Feet: normal Maternal Structures Uterus / Cervix Uterus: Visualized Uterus length 128 mm Uterus width 103 mm Uterus height 77 mm Uterus Vol 534.9 cm Ovaries / Tubes / Adnexa Rt ovary: Visualized Rt ovary D1 27 mm Rt ovary D2 25 mm Rt ovary D3 28 mm Rt ovary Vol 9.8 cm Lt ovary: Visualized Lt ovary D1 27 mm Lt ovary D2 26 mm Lt ovary D3 21 mm Lt ovary Vol 8.0 cm Performed By: Idania Snyder RDMS, RVT Read By: Pooja Latham M.D. MATERNAL MEDICINE [facility] Radiology Study observation (narrative) [facility] [id number] PLUSon 06-15-2024 Cell-free DNA./Cell-free DNA.total Dosage of chromosome-specific cfDNA (cfDNA) [Molar fraction] 15% [facility] Comment on above: Order Comment: Speci men Type: BLOOD SPECIMENOrdering Facility: [facility] Address: [address] [place] [address] Performed By: #### M AT21 ####[facility] LABCLIA [id number] [place] [address] Chr 13+18+21+X+Y aneuploidy Dosage of chromosome-specific cfDNA Ql (cfDNA) Negative [facility] Comment on above: Order Comment: Speci men Type: BLOOD SPECIMENOrdering Facility: [facility] Address: [address] [place] [address] Performed By: #### M AT21 ####D[facility] LABCLIA [id number] [place] [address] Chr 21 trisomy Dosage of chromosome-specific cfDNA Ql (cfDNA) Negative [facility] Comment on above: Order Comment: Speci men Type: BLOOD SPECIMENOrdering Facility: [facility] Address: [address] [place] [address] Performed By: #### M AT21 ####[facility] LABCLIA [id number] [place] [address] Chr X and Y aneuploidy risk Sequencing Ql (cfDNA) [Interp] Not detected [facility] Comment on above: Order Comment: Speci men Type: BLOOD SPECIMENOrdering Facility: [facility] Address: [address] [place] [address] Result Comment: Not DetectedNot Detected Performed By: #### M AT21 ####[facility] LABCLIA [id number] [place] [address] Citation Jorge (Reference lab test) Comment [facility] Comment on above: Order Comment: Speci men Type: BLOOD SPECIMENOrdering Facility: [facility] Address: [address] [place] [address] Result Comment: 1. P gabriela ROBINS, et al. Jaqueline Med. 2012;14(3):296-305.2. Shellie LIAO et al. Prenat Diag. 2013;33(6):591-597.3. Paul C, et al. Clin Chem. 2015 Apr;61(4):608-616.4. Shira ROBINS, et al. Jaqueline Med. 2011;13(11):913-920.5. ACOG/SMFM Practice Bulletin No. 226, Mar 2020. Performed By: #### M AT21 ####SEQU[facility] LABCLIA [id number] [place] [address] Gestational age Estimated from conception date [place] Normal [facility] Comment on above: Order Comment: Speci men Type: BLOOD SPECIMENOrdering Facility: [facility] Address: [address] [place] [address] Performed By: #### M AT21 ####[facility] LABCLIA [id number] [place] [address] GESTATIONALAGE AGE > OR = 9W Yes Normal [facility] Comment on above: Order Comment: Speci men Type: BLOOD SPECIMENOrdering Facility: [facility] Address: [address] [place] [address] Performed By: #### M AT21 ####[facility] LABCLIA [id number] [place] [address] Laboratory comment Jorge (Report) Comment [facility] Comment on above: Order Comment: Gume escobedo Type: BLOOD SPECIMENOrdering Facility: [facility] Address: [address] [place] [address] Result Comment: The MaterniT(R) 21 PLUS laboratory-developed test (LDT)analyzes circulating cell-free DNA from a maternal bloodsample. This test is used for screening purposes and notdiagnostic. Clinical correlation is recommended. Validationdata on twin pregnancies is limited and the ability of thistest to detect aneuploidy in higher multiple gestations hasnot yet been validated. Performed By: #### M AT21 ####Message MissileIA [id number] [place] [address] aoc director combat plans officer name Nom (Provider) Comment [facility] Comment on above: Order Comment: Gume escobedo Type: BLOOD SPECIMENOrdering Facility: [facility] Address: [address] [place] [address] Result Comment: This specimen showed an expected representation ofchromosome 21, 18 and 13 material. Clinical correlation issuggested.CommentValdemar Kearns MD, PhD, Director, [employer] Performed By: #### M AT21 ####[facility] LABKingdeeIA [id number] [place] [address] LIMITATIONS OF THE TEST Comment [facility] Comment on above: Order Comment: Gume escobedo Type: BLOOD SPECIMENOrdering Facility: [facility] Address: [address] [place] [address] Result Comment: Lynne grijalva the results of these tests are highly reliable,discordant results, including inaccurate sexprediction, may occur due to placental, maternal, or fetalmosaicism or neoplasm; vanishing twin; prior maternal organtransplant; or other causes. These tests are screeningtests and not diagnostic; they do not replace the accuracyand precision of diagnosis with CVS oramniocentesis. A patient with a positive test result shouldbe referred for genetic counseling and offered invasiveprenatal diagnosis for confirmation of test results.[5] Theresults of this testing, including the benefits andlimitations, should be discussed with a qualifiedhealthcare provider. management decisions,including termination of the , should not be basedon the results of these tests alone. The healthcareprovider is responsible for the use of this information inthe management of their patient. Sex chromosomalaneuploidies are not reportable for known multiplegestations. A negative result does not ensure an unaffectedpregnancy nor does it exclude the possibility of otherchromosomal abnormalities or defects which are not apart of these tests. An uninformative result may bereported, the causes of which may include, but are notlimited to, insufficient sequencing coverage, noise orartifacts in the region, amplification or sequencing bias,or insufficient fraction. These tests are notintended to identify pregnancies at risk for neural tubedefects or ventral wall defects. Testing for wholechromosome abnormalities (including sex chromosomes) andfor subchromosomal abnormalities could lead to thepotential discovery of both and maternal genomicabnormalities that could have major, minor, or no, clinicalsignificance. Evaluating the significance of a positive ora non-reportable result may involve both invasive testingand additional studies on the mother. Such investigationsmay lead to a diagnosis of maternal chromosomal orsubchromosomal abnormalities, which on occasion may beassociated with benign or malignant maternal neoplasms.These tests may not accurately identify triploidy,balanced rearrangements, or the precise location ofsubchromosomal duplications or deletions; these may bedetected by diagnosis with CVS or amniocentesis.The ability to report results may be impacted by maternalBMI, maternal weight, maternal systemic lupus erythematosus(SLE) and/or by certain pharmaceutical agents such as lowmolecular weight heparin (for example: Lovenox(R),Xaparin(R), Clexane(R) and Fragmin(R)). Performed By: #### M AT21 ####[facility] LABCLIA [id number] [place] [address] Monosomy X risk Dosage of chromosome-specific cfDNA Ql (Plasma cell-free+WBC DNA) [Interp] Not detected [facility] Comment on above: Order Comment: Speci men Type: BLOOD SPECIMENOrdering Facility: [facility] Address: [facility] [place] [address] Performed By: #### M AT21 ####[facility] LABCLIA [id number] [place] [address] NEGATIVE PREDICTIVE VALUE Note [facility] Comment on above: Order Comment: Speci men Type: BLOOD SPECIMENOrdering Facility: [facility] Address: [address] [place] [address] Result Comment: The Negative Predictive Value (NPV) for trisomy 21, 18, and13 is greater than 99%. The NPV for SCA and ESS cannot becalculated as SCA and ESS are only reported when anabnormality is detected. Performed By: #### M AT21 ####[facility] LABCLIA [id number] [place] [address] NOTE Comment [facility] Comment on above: Order Comment: [facility] Type: BLOOD SPECIMENOrdering Facility: [facility] Address: [address] [place] [address] Result Comment: See [employer] is a subsidiary of [employer], using the brand Sooth[employer]. This test wasdeveloped and its performance characteristics determined by[facility]. It has not been cleared or approved by the Foodand Drug Administration. This laboratory is certified underthe Clinical Laboratory Improvement Amendments (CLIA) asqualified to perform high complexity clinical laboratorytesting and accredited by the College of AmericanPathologists (CAP).If there is future clinical need for adding MaterniT GENOMEtesting, this specimen will be available until term.[facility] samples will not be retained beyond 60 days.[facility] patients will have to send a new sample forre-sequencing ([facility] Test Code: 138866). Performed By: #### M AT21 ####[facility] LABCLIA [id number] [place] [address] PERFORMANCE CHARACTERISTICS Note [facility] Comment on above: Order Comment: Speci men Type: BLOOD SPECIMENOrdering Facility: [facility] Address: [address] [place] [address] Result Comment: ! Sex ! Accuracy: 99.4% !! !! Region (associated syndrome) ! Est. Sens# ! Est. Spec !! !! Trisomy 21 (Down Syndrome) ! 99.1% ! 99.9% !! !! Trisomy 18 (Pham Syndrome) ! >99.9% ! 99.6% !! !! Trisomy 13 (Patau Syndrome) ! 91.7% ! 99.7% !! !! Sex Chromosome Aneuploidies## ! 96.2% ! 99.7% !! !* As reported in [facility] database nstd37[https://www.ncbi.nlm.nih.gov/dbvar/studies/nstd37/ ]# Estimated Sensitivity. Sensitivity estimated across theobserved size distribution of each syndrome [per [employer] nstd37] and across the range of fractionsobserved in routine clinical NIPT. Actual sensitivity canalso be influenced by other factors such as the size of theevent, total sequence counts, amplification bias, orsequence bias.## [place] gestation only. Performed By: #### M AT21 ####Message MissileIA [id number] [place] [address] POSITIVE PREDICTIVE VALUE N/A [facility] Comment on above: Order Comment: Speci men Type: BLOOD SPECIMENOrdering Facility: [facility] Address: [address] [place] [address] Performed By: #### M AT21 ####[facility] LABCLIA [id number] [place] [address] Reference Lab Test Method Comment [facility] Comment on above: Order Comment: Speci men Type: BLOOD SPECIMENOrdering Facility: [facility] Address: [address] [place] [address] Result Comment: See NotesCirculating cell-free DNA was purified from the plasmacomponent of maternal blood. The extracted DNA was thenconverted into a genomic DNA library for aneuploidyanalysis of chromosomes 21, 18, and 13 via next generationsequencing.[1] Optional findings based on the test orderinclude sex chromosome aneuploidy (SCA)[2], and enhancedsequencing series (ESS)[3], which will only be reported onas an additional finding when an abnormality is detected.SCA testing includes information on X and Y representation,while ESS testing includes deletions in selected regions(22q, 15q, 11q, 8q, 5p, 4p, 1p) and trisomy of uocqrbjfqec14 and 22. Performed By: #### M AT21 ####Diger[facility]RP LABKingdeeIA [id number] [place] [address] Sex Dosage of chromosome-specific cfDNA Nom (cfDNA) Comment [facility] Comment on above: Order Comment: Speci men Type: BLOOD SPECIMENOrdering Facility: [facility] Address: [address] [place] [address] Result Comment: Cons istent with Female Performed By: #### M AT21 ####[facility] LABCLIA [id number] [place] [address] Test performance information Jorge (Unsp spec) Comment [facility] Comment on above: Order Comment: Speci men Type: BLOOD SPECIMENOrdering Facility: [facility] Address: [address] [place] [address] Result Comment: The performance characteristics of the MaterniT(R) 21 PLUSlaboratory-developed test (LDT) have been determined in aclinical validation study with women at increasedrisk for chromosomal aneuploidy.[1-4] Performed By: #### M AT21 ####[facility] LABCLIA [id number] [place] [address] Trisomy 13 risk Dosage of chromosome-specific cfDNA Ql (cfDNA) [Interp] Negative [facility] Comment on above: Order Comment: Speci men Type: BLOOD SPECIMENOrdering Facility: [facility] Address: [address] [place] [address] Performed By: #### M AT21 ####[facility] LABCLIA [id number] [place] [address] Trisomy 18 risk Dosage of chromosome-specific cfDNA Ql (Plasma cell-free+WBC DNA) [Interp] Negative [facility] Comment on above: Order Comment: Speci men Type: BLOOD SPECIMENOrdering Facility: [facility] Address: [address] [place] [address] Performed By: #### M AT21 ####[facility] LABCLIA [id number] [place] [address] CNPNon 06-11-2024 CNPN [facility] CNOVon 06-07-2024 CNOV [facility] HEMOGLOBIN A1C (POC)on 06-07 HbA1c (Bld) [Mass fraction] 7.9 % Abnormal 4.3 - 5.6 % [facility] Comment on above: Location:[facility], [address], [place], [address] Point of care (POC) Hemoglobin A1c (HGBA1C) testing is intended to assess glucose control and provide a management tool for patients known to have diabetes and their healthcare providers. Target HGBA1C levels may depend on specific clinical circumstances. POC HGBA1C is not intended for use as a diagnostic or screening test; laboratory-based testing should be used for diagnostic purposes. The following information is supplemental and may not be applicable to specific diabetes management situations: The POC device fruit canner provides a normal range of 4.2% to 6.5% for the HGBA1C POC test. However, the [place] [employer] guidelines indicate that patients with HGBA1C in the range of 5.7% to 6.4% are at increased risk for development of diabetes and that intervention by lifestyle modification may be beneficial. A HGBA1C level greater than or equal to 6.5% is considered diagnostic of diabetes, pending confirmatory testing. Use of HGBA1C testing to evaluate glucose control may not be appropriate for patients with hemoglobin variants or other conditions (e.g. anemia) that alter red blood cell lifespan. Interpretation and review of laboratory results Abnormal [facility] CNPNon 06-05-2024 CNPN [facility] CNPNon 06-01-2024 CNPN [facility] URINE OB DIP B/Oon Glucose Ql (U) Negative Neg mg/dL [facility] Interpretation and review of laboratory results Normal [facility] Protein.monoclonal (U) [Mass/Vol] Negative Neg mg/dL [facility] CBC W Auto Differential pane l (Bld)on 05-21-2024 Basophils (Bld) [#/Vol] 0.05 10*3/uL [facility] Basophils/100 WBC (Bld) 0.6 % 0.0 - 2.0 % [facility] Eosinophils (Bld) [#/Vol] 0.18 10*3/uL [facility] Eosinophils/100 WBC (Bld) 2.3 % 0.0 - 6.0 % [facility] Erythrocyte distribution width (RBC) [Ratio] 12.1 % 11.5 - 14.5 % [facility] Hematocrit (Bld) [Volume fraction] 41.7 % 36.0 - 46.0 % [facility] Hemoglobin (Bld) [Mass/Vol] 14.3 g/dL 12.0 - 16.0 g/dL [facility] Immature granulocytes (Bld) [#/Vol] 0.01 10*3/uL [facility] Immature granulocytes/100 WBC (Bld) 0.1 % 0.0 - 0.9 % [facility] Comment on above: Immature Granulocyte Count (IG) includes promyelocytes, myelocytes and metamyelocytes but does not include bands. Percent differential counts (%) should be interpreted in the context of the absolute cell counts (cells/UL). Lymphocytes (Bld) [#/Vol] 3.2 10*3/uL [facility] Lymphocytes/100 WBC (Bld) 41.3 % 13.0 - 44.0 % [facility] MCH (RBC) [Entitic mass] 28.9 pg 26.0 - 34.0 pg [facility] MCHC (RBC) [Mass/Vol] 34.3 g/dL 32.0 - 36.0 g/dL [facility] MCV (RBC) [Entitic vol] 84 fL 80 - 100 fL [facility] Monocytes (Bld) [#/Vol] 0.49 10*3/uL [facility] Monocytes/100 WBC (Bld) 6.3 % 2.0 - 10.0 % [facility] Neutrophils (Bld) [#/Vol] 3.81 10*3/uL [facility] Comment on above: Percent differential counts (%) should be interpreted in the context of the absolute cell counts (cells/uL). Neutrophils/100 WBC (Bld) 49.4 % 40.0 - 80.0 % [facility] Nucleated RBC/100 WBC (Bld) [Ratio] 0 % [facility] Platelets (Bld) [#/Vol] 299 10*3/uL [facility] RBC (Bld) [#/Vol] 4.94 10*6/uL [facility] WBC (Bld) [#/Vol] 7.7 10*3/uL [facility] Basophils (Bld) [#/Vol] 0.05 x10*3/uL Normal 0.00-0.10 [facility] Comment on above: Performed By: #### 5 7021-8 #### JACQUELYN LOPEZ ([id number]) [facility] [address] [place] [address] Basophils/100 WBC (Bld) 0.6 % Normal 0.0-2.0 [facility] Comment on above: Performed By: #### 7021-8 #### JACQUELYN LOPEZ ([id number]) [facility] ([facility]) [address] [place] [address]29 Eosinophils (Bld) [#/Vol] 0.18 x10*3/uL Normal 0.00-0.70 [facility] Comment on above: Performed By: #### 5 7021-8 #### JACQUELYN LOPEZ ([id number]) [facility] ([facility]) [address] [place] [address] Eosinophils/100 WBC (Bld) 2.3 % Normal 0.0-6.0 [facility] Comment on above: Performed By: #### 7021-8 #### JACQUELYN LOPEZ ([id number]) [facility] ([facility]) [address] [place] [address]26 Erythrocyte distribution width (RBC) [Ratio] 12.1 % Normal 11.5-14.5 [facility] Comment on above: Performed By: #### 7021-8 #### JACQUELYN LOPEZ ([id number]) [facility]) [address] [place] [address] 18985 Hematocrit (Bld) [Volume fraction] 41.7 % Normal 36.0-46.0 [facility] Comment on above: Performed By: #### 7021-8 #### JACQUELYN LPOEZ ([id number]) [facility] ([facility]) [address] [place] [address] 36415 Hemoglobin (Bld) [Mass/Vol] 14.3 g/dL Normal 12.0-16.0 [facility] Comment on above: Performed By: #### 7021-8 #### JACQUELYN LOPEZ ([id number]) [facility] ([facility]) [address] [place] [address] 12905 Immature granulocytes (Bld) [#/Vol] 0.01 x10*3/uL Normal 0.00-0.70 [facility] Comment on above: Performed By: #### 5 7021-8 #### JACQUELYN LOPEZ ([id number]) [facility]) [address] [place] [address]81[address] Immature granulocytes/100 WBC (Bld) 0.1 % Normal 0.0-0.9 [facility] Comment on above: Result Comment: Kaela ture Granulocyte Count (IG) includes promyelocytes, myelocytes and metamyelocytes but does not include bands. Percent differential counts (%) should be interpreted in the context of the absolute cell counts (cells/UL). Performed By: #### 5 7021-8 #### JACQUELYN LOPEZ ([id number]) [facility] ([facility]) [address] [place] [address] 005[address] Lymphocytes (Bld) [#/Vol] 3.20 x10*3/uL Normal 1.20-4.80 [facility] Comment on above: Performed By: #### 5 7021-8 #### JACQUELYN LOPEZ ([id number]) [facility]) [address] [place] [address] 10590 Lymphocytes/100 WBC (Bld) 41.3 % Normal 13.0-44.0 [facility] Comment on above: Performed By: #### 5 7021-8 #### JACQUELYN LOPEZ ([id number]) [facility]) [address] [place] [address] 98742 MCH (RBC) [Entitic mass] 28.9 pg Normal 26.0-34.0 [facility] Comment on above: Performed By: #### 5 7021-8 #### JACQUELYN LOPEZ ([id number]) [facility] ([facility]) [address] [place] [address]498 MCHC (RBC) [Mass/Vol] 34.3 g/dL Normal 32.0-36.0 [facility] Comment on above: Performed By: #### 5 7021-8 #### JACQUELYN LOPEZ ([id number]) [facility]) [address] [place] [address] 03894 MCV (RBC) [Entitic vol] 84 fL Normal 80-100 [facility] Comment on above: Performed By: #### 5 7021-8 #### JACQUELYN LOPEZ ([id number]) [facility]) [address] [place] [address] 20277 Monocytes (Bld) [#/Vol] 0.49 x10*3/uL Normal 0.10-1.00 [facility] Comment on above: Performed By: #### 5 7021-8 #### JACQUELYN LOPEZ ([id number]) [facility]) [address] [place] [address]307 Monocytes/100 WBC (Bld) 6.3 % Normal 2.0-10.0 [facility] Comment on above: Performed By: #### 5 7021-8 #### JACQUELYN LOPEZ ([id number]) [facility]) [address] [place] [address] 74918 Neutrophils (Bld) [#/Vol] 3.81 x10*3/uL Normal 1.20-7.70 [facility] Comment on above: Result Comment: Perc ent differential counts (%) should be interpreted in the context of the absolute cell counts (cells/uL). Performed By: #### 5 7021-8 #### JACQUELYN LOPEZ ([id number]) [facility]) [address] [place] [address] 83340 Neutrophils/100 WBC (Bld) 49.4 % Normal 40.0-80.0 [facility] Comment on above: Performed By: #### 5 7021-8 #### JACQUELYN LOPEZ ([id number]) [facility]) [address] [place] [address] 64014 Nucleated RBC/100 WBC (Bld) [Ratio] 0.0 /100 WBCs Normal 0.0-0.0 [facility] Comment on above: Performed By: #### 5 7021-8 #### JACQUELYN LOPEZ ([id number]) [facility]) [address] [place] [address] Platelets (Bld) [#/Vol] 299 x10*3/uL Normal 150-450 [facility] Comment on above: Performed By: #### 5 7021-8 #### JACQUELYN LOPEZ ([id number]) [facility]) [address] [place] [address] RBC (Bld) [#/Vol] 4.94 x10*6/uL Normal 4.00-5.20 [facility] Comment on above: Performed By: #### 5 7021-8 #### JACQUELYN LOPEZ ([id number]) [facility]) [address] [place] [address] WBC (Bld) [#/Vol] 7.7 x10*3/uL Normal 4.4-11.3 [facility] Comment on above: Performed By: #### 5 7021-8 #### JACQUELYN LOPEZ ([id number]) [facility]) [address] [place] [address] Choriogonadotropin.beta subu niton 05-21-2024 [place] [address] m[IU]/mL High <5 U [facility] Comment on above: Order Comment: OVER is reported when the result is greater than the clinically reportable range. Result Comment: Low- level positive HCG results can be seen in early , in gregory- or post-menopausal females due to normal pituitary HCG production, or with analytic interference. Repeat testing in 48-72 hours can aid in assessing for as results should double in this time period. FSH measurement is recommended in gregory- or post-menopausal females as concurrent elevation of FSH can support pituitary production as the source of the HCG elevation. Performed By: #### 5 8077-9 #### JACQUELYN LOPEZ ([id number]) [facility] ([facility]) [address] [place], [place] [id number] Comprehensive metabolic 2000 panelon 05-21-2024 Albumin BCP dye [Mass/Vol] 4.2 g/dL 3.4 - 5.0 g/dL [facility] ALP [Catalytic activity/Vol] 49 U/L 33 - 110 U/L [facility] ALT With P-5'-P [Catalytic activity/Vol] 20 U/L 7 - 45 U/L [facility] Comment on above: Patients treated wit h Sulfasalazine may generate falsely decreased results for ALT. Anion gap [Moles/Vol] 13 mmol/L 10 - 2 0 mmol/L [facility] AST With P-5'-P [Catalytic activity/Vol] 10 U/L 9 - 39 U/L [facility] Bilirubin [Mass/Vol] 0.5 mg/dL 0.0 - 1 .2 mg/dL [facility] Calcium [Mass/Vol] 9.8 mg/dL 8.6 - 10. 3 mg/dL [facility] Chloride [Moles/Vol] 103 mmol/L 98 - 10 7 mmol/L [facility] CO2 [Moles/Vol] 25 mmol/L 21 - 32 mmol/L [facility] Creatinine [Mass/Vol] 0.53 mg/dL 0.50 - 1.05 mg/dL [facility] eGFR - PINF [facility] Comment on above: Calculations of ascencion mated GFR are performed using the 2020 CKD-EPI Study Refit equation without the race variable for the IDMS-Traceable creatinine methods. https://jasn.asnjournals.org/content//ASN.496283 2302 Glucose [Mass/Vol] 150 mg/dL High 74 - 99 mg/dL [facility] Interpretation and review of laboratory results Abnormal [facility] Potassium [Moles/Vol] 3.7 mmol/L 3.5 - 5.3 mmol/L [facility] Protein [Mass/Vol] 7.4 g/dL 6.4 - 8.2 g/dL [facility] Sodium [Moles/Vol] 137 mmol/L 136 - 145 mmol/L [facility] Urea nitrogen [Mass/Vol] 14 mg/dL 6 - 23 mg/dL [facility] Albumin BCP dye [Mass/Vol] 4.2 g/dL Normal 3.4-5.0 [facility] Comment on above: Performed By: #### 2 432-8 #### JACQUELYN LOPEZ ([id number]) [facility] ([facility]) [address] [place] [address] ALP [Catalytic activity/Vol] 49 U/L Normal 33-110 [facility] Comment on above: Performed By: #### 2 432-8 #### JACQUELYN LOPEZ ([id number]) [facility] ([facility]) [address] [place] [address]671 ALT With P-5'-P [Catalytic activity/Vol] 20 U/L Normal 7-45 [facility] Comment on above: Result Comment: Shantal ents treated with Sulfasalazine may generate falsely decreased results for ALT. Performed By: #### 2 432-8 #### JACQUELYN LOPEZ ([id number]) [facility] ([facility]) [address] [place] [address] Anion gap [Moles/Vol] 13 mmol/L Normal 10-20 [facility] Comment on above: Performed By: #### 2 432-8 #### JACQUELYN LOPEZ ([id number]) [facility] ([facility]) [address] [place] [address]378 AST With P-5'-P [Catalytic activity/Vol] 10 U/L Normal 9-39 [facility] Comment on above: Performed By: #### 2 4323-8 #### JACQUELYN LOPEZ ([id number]) [facility] ([facility]) [address] [place] [address] 32162 Bilirubin [Mass/Vol] 0.5 mg/dL Normal 0.0-1.2 [facility] Comment on above: Performed By: #### 2 4323-8 #### JACQUELYN LOPEZ ([id number]) [facility]) [facility] [place] [address] Calcium [Mass/Vol] 9.8 mg/dL Normal 8.6-10.3 [facility] Comment on above: Performed By: #### 2 4323-8 #### JACQUELYN LOPEZ ([id number]) [facility]) [address] [place] [address] Chloride [Moles/Vol] 103 mmol/L Normal 98-107 [facility] Comment on above: Performed By: #### 2 4323-8 #### JACQUELYN LOPEZ ([id number]) [facility]) [facility] [place] [address] CO2 [Moles/Vol] 25 mmol/L Normal 21-[address] [facility] Comment on above: Performed By: #### 2 4323-8 #### JACQUELYN LOPEZ ([id number]) [facility]) [address] [place] [address]56 Creatinine [Mass/Vol] 0.53 mg/dL Normal 0.50-1.05 [facility] Comment on above: Performed By: #### 2 4323-8 #### JACQUELYN LOPEZ ([id number]) [facility]) [address] [place] [address]4035 GFR/1.73 sq M.predicted MDRD (S/P/Bld) [Vol rate/Area] mL/min/{1.73_m2} Normal >60 [facility] Comment on above: Result Comment: Calc ulations of estimated GFR are performed using the 2020 CKD-EPI Study Refit equation without the race variable for the IDMS-Traceable creatinine methods. https://jasn.asnjournals.org/content/early//ASN.339499 5234 Performed By: #### 2 4323-8 #### JACQUELYN LOPEZ ([id number]) [facility]) [address] [place] [address]691 Glucose [Mass/Vol] 150 mg/dL High 74-99 [facility] Comment on above: Performed By: #### 2 4323-8 #### JACQUELYN LOPEZ ([id number]) [facility] ([facility]) [address] [place] [address] 34094 Potassium [Moles/Vol] 3.7 mmol/L Normal 3.5-5.3 [facility] Comment on above: Performed By: #### 2 4323-8 #### JACQUELYN LOPEZ ([id number]) [facility]) [facility] [place] [address] Protein [Mass/Vol] 7.4 g/dL Normal 6.4-8.2 [facility] Comment on above: Performed By: #### 2 4323-8 #### JACQUELYN LOPEZ ([id number]) [facility] ([facility]) [address] [place] [address]004 Sodium [Moles/Vol] 137 mmol/L Normal 136-145 [facility] Comment on above: Performed By: #### 2 4323-8 #### JACQUELYN LOPEZ ([id number]) [facility]) [address] [place] [address] 16473 Urea nitrogen [Mass/Vol] 14 mg/dL Normal 6-23 [facility] Comment on above: Performed By: #### 2 4323-8 #### JACQUELYN LOPEZ ([id number]) [facility]) [address] [place] [address] 79227 HCG.beta subunit Qnon 2023 Interpretation and review of laboratory results Abnormal [facility] Total HCG measuremen t is performed using the [place] Access Immunoassay which detects intact HCG and free beta HCG subunit. This test is not indicated for use as a tumor marker. HCG testing is performed using a different test methodology at [facility] than other legacy [facility]. Direct result comparison should only be made within the same method. [facility] Urinalysis complete W Reflex Culture panel (U)on 05-21-2024 Appearance (U) Turbid Abnormal Clear [facility] Bacteria Auto (Urine sed) [#/Area] 2+ Abnormal NONE SEEN /HPF [facility] Bilirubin (U) [Mass/Vol] Negative NEGATIVE [facility] Color (U) Light-Yellow Light-Yellow , Yellow, Dark-Yellow [facility] Epithelial cells.squamous Auto (Urine sed) [#/Area] 10-25 (FEW) Reference range not established. /HPF [facility] Glucose Auto test strip (U) [Mass/Vol] OVER (4+) Abnormal Normal mg/dL [facility] Interpretation and review of laboratory results Abnormal [facility] Ketones (U) [Mass/Vol] Negative NEGATIVE mg/dL [facility] Leukocyte clumps Auto (Urine sed) [#/Area] RARE Reference range not established. /HPF [facility] Leukocyte esterase Auto test strip Ql (U) Negative NEGATIVE [facility] Mucus Auto (Urine sed) [#/Area] FEW Reference range not established. /LPF [facility] Nitrite Auto test strip Ql (U) Negative NEGATIVE [facility] pH (U) 6 [pH] 5.0, 5.5, 6.0, 6.5, 7.0, 7.5, 8.0 [facility] Protein (U) [Mass/Vol] 10 (TRACE) NEGATIVE, 10 (TRACE), 20 (TRACE) mg/dL [facility] RBC (U) [#/Vol] Negative NEGATIVE [facility] RBC Auto (Urine sed) [#/Area] 1-2 NONE, 1-2, 3-5 /HPF [facility] Specific gravity (U) [Rel density] 1.029 1.005 - 1.035 [facility] Urobilinogen (U) [Mass/Vol] 4 (2+) Abnormal Normal mg/dL [facility] Comment on above: Some pigments and me dications may cause a false positive urobilinogen. WBC Auto (Urine sed) [#/Area] 1-5 1-5, NONE /HPF [facility] OVER is reported whe n the result is greater than the clinically reportable range. [facility] Appearance (U) Turbid Normal Clear [facility] Comment on above: Order Comment: OVER is reported when the result is greater than the clinically reportable range. Performed By: #### 5 8077-9 #### VALLADARES JOHN ([id number]) [facility] ([facility]) [address] [place] [address] Bacteria Auto (Urine sed) [#/Area] 2+ /HPF Abnormal NONE SEEN [facility] Comment on above: Performed By: #### 5 8077-9 #### JACQUELYN LOPEZ ([id number]) [facility] ([facility]) [address] [place] [address] Bilirubin (U) [Mass/Vol] Negative Normal NEGATIVE [facility] Comment on above: Order Comment: OVER is reported when the result is greater than the clinically reportable range. Performed By: #### 5 8077-9 #### JACQUELYN LOPEZ ([id number]) [facility] ([facility]) [address] [place] [address] Color (U) Light-Yellow Normal Light-Yellow , Yellow, Dark-Yellow [facility] Comment on above: Order Comment: OVER is reported when the result is greater than the clinically reportable range. Performed By: #### 5 8077-9 #### JACQUELYN LOPEZ ([id number]) [facility] ([facility]) [address] [place] [address] Epithelial cells.squamous Auto (Urine sed) [#/Area] 10-25 (FEW) Normal Reference range not established. [facility] Comment on above: Performed By: #### 5 8077-9 #### JACQUELYN LOPEZ ([id number]) [facility] ([facility]) [address] [place] [address] Glucose Auto test strip (U) [Mass/Vol] OVER (4+) Abnormal Normal [facility] Comment on above: Order Comment: OVER is reported when the result is greater than the clinically reportable range. Performed By: #### 5 8077-9 #### JACQUELYN LOPEZ ([id number]) [facility] ([facility]) [address] [place] [address] Ketones (U) [Mass/Vol] Negative Normal NEGATIVE [facility] Comment on above: Order Comment: OVER is reported when the result is greater than the clinically reportable range. Performed By: #### 5 8077-9 #### JACQUELYN LOPEZ ([id number]) [facility]) [address] [place] [address] Leukocyte clumps Auto (Urine sed) [#/Area] RARE Normal Reference range not established. [facility] Comment on above: Performed By: #### 5 8077-9 #### JACQUELYN LOPEZ ([id number]) [facility] ([facility]) [address] [place] [address] Leukocyte esterase Auto test strip Ql (U) Negative Normal NEGATIVE [facility] Comment on above: Order Comment: OVER is reported when the result is greater than the clinically reportable range. Performed By: #### 5 8077-9 #### JACQUELYN LOPEZ ([id number]) [facility]) [address] [place] [address] Mucus Auto (Urine sed) [#/Area] FEW Normal Reference range not established. [facility] Comment on above: Performed By: #### 5 8077-9 #### JACQUELYN OLPEZ ([id number]) [facility] ([facility]) [address] [place] [address] Nitrite Auto test strip Ql (U) Negative Normal NEGATIVE [facility] Comment on above: Order Comment: OVER is reported when the result is greater than the clinically reportable range. Performed By: #### 5 8077-9 #### JACQUELYN LOPEZ ([id number]) [facility] ([facility]) [address] [place] [address] pH (U) 6.0 [pH] Normal 5.0, 5.5, 6.0, 6.5, 7.0, 7.5, 8.0 [facility] Comment on above: Order Comment: OVER is reported when the result is greater than the clinically reportable range. Performed By: #### 5 8077-9 #### JACQUELYN LOPEZ ([id number]) [facility] ([facility]) [address] [place] [address] Protein (U) [Mass/Vol] 10 (TRACE) Normal NEGATIVE, 10 (TRACE), 20 (TRACE) [facility] Comment on above: Order Comment: OVER is reported when the result is greater than the clinically reportable range. Performed By: #### 5 8077-9 #### JACQUELYN LOPEZ ([id number]) [facility]) [address] [place] [address] RBC (U) [#/Vol] Negative Normal NEGATIVE [facility] Comment on above: Order Comment: OVER is reported when the result is greater than the clinically reportable range. Performed By: #### 5 8077-9 #### JACQUELYN LOPEZ ([id number]) [facility]) [address] [place] [address] RBC Auto (Urine sed) [#/Area] 1-2 Normal NONE, 1-2, 3-5 [facility] Comment on above: Performed By: #### 5 8077-9 #### JACQUELYN LOPEZ ([id number]) [facility] ([facility]) [address] [place] [address] Specific gravity (U) [Rel density] 1.029 Normal 1.005-1.035 [facility] Comment on above: Order Comment: OVER is reported when the result is greater than the clinically reportable range. Performed By: #### 5 8077-9 #### JACQUELYN LOPEZ ([id number]) [facility] ([facility]) [address] [place] [address] Urobilinogen (U) [Mass/Vol] 4 (2+) Abnormal Normal [facility] Comment on above: Order Comment: OVER is reported when the result is greater than the clinically reportable range. Result Comment: Some pigments and medications may cause a false positive urobilinogen. Performed By: #### 5 8077-9 #### JACQUELYN LOPEZ ([id number]) [facility] ([facility]) [address] [place] [address] WBC Auto (Urine sed) [#/Area] 1-5 Normal 1-5, NONE [facility] Comment on above: Performed By: #### 5 8077-9 #### JACQUELYN LOPEZ ([id number]) [facility]) [address] [place] [address] hCG, quantitative, on 05-21-2024 [place] [address] m[IU]/mL High NINF U [facility] Comment on above: Low-level positive H CG results can be seen in early , in gregory- or post-menopausal females due to normal pituitary HCG production, or with analytic interference. Repeat testing in 48-72 hours can aid in assessing for as results should double in this time period. FSH measurement is recommended in gregory- or post-menopausal females as concurrent elevation of FSH can support pituitary production as the source of the HCG elevation. CNPNon 05-20-2024 CNPN Normal [facility] CNPNon 05-17-2024 CNPN Normal [facility] CNPNon 05-10-2024 CNPN Normal [facility] BACTERIAL VAGINOSIS NAATon 1 07-07-2023 Lactobacillus crispatus+gasseri+dez senii + Gardnerella vaginalis + Atopobium vaginae rRNA SUMIT+probe Ql (Vag fld) Detected Abnormal Not detected [facility] Comment on above: Order Comment: Speci men Type: SWABOrdering Facility: [facility] Address: [address] [place] [address] Performed By: #### 3 6902-5, BVAMP ####[facility] [id number] [place] [address] [place] Bacteria Ur Culton Bacteria identified Cx Nom (U) ORGANISM ID: 1 10,000 -<50,000 CFU/ml Normal urogenital hima Streptococcus agalactiae (Group B streptococcus) was identified in this specimen, which is clinically relevant if the individual is . Normal [facility] Comment on above: Performed By: #### 6 30-4 ####[facility] LAB[facility] [id number] [place] [address] [place] C. trachomatis+N. gonorrhoea e DNA SUMIT+probe Ql (Unsp spec)on 05-07-2024 C. trachomatis rRNA SUMIT+probe Ql (Unsp spec) Not detected Normal Not detected [facility] Comment on above: Order Comment: Speci men Type: SWABOrdering Facility: [facility] Address: [address] [place] [address] Performed By: #### 3 6902-5, BVAMP ####[facility] [id number] [place] [address] [place] N. gonorrhoeae rRNA SUMIT+probe Ql (Unsp spec) Not detected Normal Not detected [facility] Comment on above: Order Comment: Speci men Type: SWABOrdering Facility: [facility] Address: [address] [place] [address] Performed By: #### 3 6902-5, BVAMP ####[facility] [id number] [place] [address] [place] JOSUÉ/TRICHOMONAS NAATon 1 07-07-2023 C. glabrata RNA SUMIT+probe Ql (Vag fld) Not detected Normal Not detected [facility] Comment on above: Order Comment: Speci men Type: SWABOrdering Facility: [facility] Address: [address] [place] [address] Performed By: #### C VTV ####[facility] [id number] [place] [address] [place] Josué sp DNA SUMIT+probe Ql (Vag fld) Not detected Normal Not detected [facility] Comment on above: Order Comment: Speci men Type: SWABOrdering Facility: [facility] Address: [address] [place] [address] Result Comment: The Josué species group target includes C. albicans, C. tropicalis, C. parapsilosis, and C. dubliniensis. Performed By: #### C VTV ####[facility] LABIA [id number] [place] [address] [place] T. vaginalis DNA SUMIT+probe Ql (Unsp spec) Not detected Normal Not detected [facility] Comment on above: Order Comment: Speci men Type: SWABOrdering Facility: [facility] Address: [address] [place] [address] Performed By: #### C VTV ####[facility] [id number] [facility] [id number] [address] [place] CARRIER SCREEN, STANDARDon 1 07-07-2023 CARRIER SCREEN RESULTS View results in Scanned Documents link when available. Normal [facility] Comment on above: Order Comment: Speci men Type: BLOOD SPECIMENOrdering Facility: [facility] Address: [address] [place] [address] Performed By: #### C RRSCN ####[facility] [id number] [place] [address] CBC W Auto Differential pane l (Bld)on 05-07-2024 Basophils (Bld) [#/Vol] 0.04 10*3/uL Normal <0.11 [facility] Comment on above: Order Comment: Speci men Type: BLOOD SPECIMENOrdering Facility: [facility] Address: [address] [place] [address] Performed By: #### 5 7021-8 ####[facility] [id number] [place] [address] [place] Basophils/100 WBC (Bld) 0.7 % Normal [facility] Comment on above: Order Comment: Speci men Type: BLOOD SPECIMENOrdering Facility: [facility] Address: [address] [place] [address] Performed By: #### 5 7021-8 ####[facility] [id number] [place] [address] [place] Differential cell count method Nom (Bld) Auto Normal [facility] Comment on above: Order Comment: Speci men Type: BLOOD SPECIMENOrdering Facility: [facility] Address: [address] [place] [address] Performed By: #### 5 7021-8 ####[facility] [id number] [place] [address] [place] Eosinophils (Bld) [#/Vol] 0.14 10*3/uL Normal <0.46 [facility] Comment on above: Order Comment: Speci men Type: BLOOD SPECIMENOrdering Facility: [facility] Address: [address] [place] [address] Performed By: #### 5 7021-8 ####[facility] [id number] [place] [address] [place] Eosinophils/100 WBC (Bld) 2.3 % Normal [facility] Comment on above: Order Comment: Speci men Type: BLOOD SPECIMENOrdering Facility: [facility] Address: [address] [place] [address] Performed By: #### 5 7021-8 ####[facility] [id number] [place] [address] [place] Erythrocyte distribution width (RBC) [Ratio] 12.2 % Normal 11.5-15.0 [facility] Comment on above: Order Comment: Speci men Type: BLOOD SPECIMENOrdering Facility: [facility] Address: [address] [place] [address] Performed By: #### 5 7021-8 ####[facility] [id number] [place] [address] [place] Hematocrit (Bld) [Volume fraction] 42.1 % Normal 36.0-46.0 [facility] Comment on above: Order Comment: Speci men Type: BLOOD SPECIMENOrdering Facility: [facility] Address: [address] [place], [place] [address] Performed By: #### 5 7021-8 ####[facility] [id number] [place] [address] [place] Hemoglobin (Bld) [Mass/Vol] 14.8 g/dL Normal 11.5-15.5 [facility] Comment on above: Order Comment: Speci men Type: BLOOD SPECIMENOrdering Facility: [facility] Address: [address] [place] [address] Performed By: #### 5 7021-8 ####[facility] MILLTOWNCLIA [id number] [place] [address] [place] Immature granulocytes (Bld) [#/Vol] 10*3/uL Normal <0.10 [facility] Comment on above: Order Comment: Speci men Type: BLOOD SPECIMENOrdering Facility: [facility] Address: [address] [place] [address] Performed By: #### 5 7021-8 ####[facility] VICKYWNCLIA [id number] [place] [address] [place] Immature granulocytes/100 WBC (Bld) 0.2 % Normal [facility] Comment on above: Order Comment: Speci men Type: BLOOD SPECIMENOrdering Facility: [facility] Address: [address] [place] [address] Performed By: #### 5 7021-8 ####[facility] HOSPITALWNCLIA [id number] [place] [address] [place] Lymphocytes (Bld) [#/Vol] 2.83 10*3/uL Normal 1.00-4.00 [facility] Comment on above: Order Comment: Speci men Type: BLOOD SPECIMENOrdering Facility: [facility] Address: [address] [place] [address] Performed By: #### 5 7021-8 ####[facility] MILLTOWNCLIA [id number] [place] [address] [place] Lymphocytes/100 WBC (Bld) 46.6 % Normal [facility] Comment on above: Order Comment: Speci men Type: BLOOD SPECIMENOrdering Facility: [facility] Address: [address] [place] [address] Performed By: #### 5 7021-8 ####[facility] MILLWNCLIA [id number] [place] [address] [place] MCH (RBC) [Entitic mass] 28.7 pg Normal 26.0-34.0 [facility] Comment on above: Order Comment: Speci men Type: BLOOD SPECIMENOrdering Facility: [facility] Address: [address] [place] [address] Performed By: #### 5 7021-8 ####[facility] [id number] [place] [address] [place] MCHC (RBC) [Mass/Vol] 35.2 g/dL Normal 30.5-36.0 [facility] Comment on above: Order Comment: Speci men Type: BLOOD SPECIMENOrdering Facility: [facility] Address: [address] [place] [address] Performed By: #### 5 7021-8 ####[facility] [id number] [place] [address] [place] MCV (RBC) [Entitic vol] 81.7 fL Normal 80.0-100.0 [facility] Comment on above: Order Comment: Speci men Type: BLOOD SPECIMENOrdering Facility: [facility] Address: [address] [place] [address] Performed By: #### 5 7021-8 ####[facility]CL[facility] [id number] [place] [address] [place] Monocytes (Bld) [#/Vol] 0.37 10*3/uL Normal <0.87 [facility] Comment on above: Order Comment: Speci men Type: BLOOD SPECIMENOrdering Facility: [facility] Address: [address] [place] [address] Performed By: #### 5 7021-8 ####[facility] [id number] [place] [address] [place] Monocytes/100 WBC (Bld) 6.1 % Normal [facility] Comment on above: Order Comment: Speci men Type: BLOOD SPECIMENOrdering Facility: [facility] Address: [address] [place] [address] Performed By: #### 5 7021-8 ####[facility] [id number] [place] [address] [place] Neutrophils (Bld) [#/Vol] 2.68 10*3/uL Normal 1.45-7.50 [facility] Comment on above: Order Comment: Speci men Type: BLOOD SPECIMENOrdering Facility: [facility] Address: [address] [place] [address] Performed By: #### 5 7021-8 ####[facility] [id number] [place] [address] [place] Neutrophils/100 WBC (Bld) 44.1 % Normal [facility] Comment on above: Order Comment: Speci men Type: BLOOD SPECIMENOrdering Facility: [facility] Address: [address] [place] [address] Performed By: #### 5 7021-8 ####[facility] [id number] [place] [address] [place] Nucleated RBC (Bld) [#/Vol] 10*3/uL Normal <0.01 [facility] Comment on above: Order Comment: Speci men Type: BLOOD SPECIMENOrdering Facility: [facility] Address: [address] [place] [address] Performed By: #### 5 7021-8 ####[facility] [id number] [place] [address] [place] Nucleated RBC/100 WBC (Bld) [Ratio] 0.0 /100 WBC Normal [facility] Comment on above: Order Comment: Speci men Type: BLOOD SPECIMENOrdering Facility: [facility] Address: [address] [place] [address] Performed By: #### 5 7021-8 ####[facility] [id number] [place] [address] [place] Platelet mean volume (Bld) [Entitic vol] 9.6 fL Normal 9.0-12.7 [facility] Comment on above: Order Comment: Speci men Type: BLOOD SPECIMENOrdering Facility: [facility] Address: [address] [place] [address] Performed By: #### 5 7021-8 ####[facility] [id number] [place] [address] [place] Platelets (Bld) [#/Vol] 301 10*3/uL Normal 150-400 [facility] Comment on above: Order Comment: Speci men Type: BLOOD SPECIMENOrdering Facility: [facility] Address: [address] [place] [address] Performed By: #### 5 7021-8 ####[facility] [id number] [place] [address] [place] RBC (Bld) [#/Vol] 5.15 10*6/uL Normal 3.90-5.20 [facility] Comment on above: Order Comment: Speci men Type: BLOOD SPECIMENOrdering Facility: [facility] Address: [address] [place], [place] [address] Performed By: #### 5 7021-8 ####[facility] [id number] [place] [address] [place] WBC (Bld) [#/Vol] 6.07 10*3/uL Normal 3.70-11.00 [facility] Comment on above: Order Comment: Speci men Type: BLOOD SPECIMENOrdering Facility: [facility] Address: [address] [place] [address] Performed By: #### 5 7021-8 ####[facility] PERRYLITTLETONNCLIA [id number] [place] [address] [place] Comprehensive metabolic 2000 panelOrdered By: Mikki Celaya on 05-07-2024 Albumin [Mass/Vol] 4.4 g/dL 3.9 - 4.9 g/dL [facility] ALP [Catalytic activity/Vol] 69 U/L 34 - 123 U/L [facility] ALT [Catalytic activity/Vol] 16 U/L 7 - 38 U/L [facility] Anion gap [Moles/Vol] 9 mmol/L 8 - 15 mmol/L [facility] AST [Catalytic activity/Vol] 10 U/L Low 13 - 35 U/L [facility] Bilirubin [Mass/Vol] 0.6 mg/dL 0.2 - 1 .3 mg/dL [facility] Calcium [Mass/Vol] 9.7 mg/dL 8.5 - 10. 2 mg/dL [facility] Chloride [Moles/Vol] 101 mmol/L 98 - 10 7 mmol/L [facility] CO2 [Moles/Vol] 23 mmol/L 22 - 30 mmol/L [facility] Creatinine [Mass/Vol] 0.43 mg/dL Low 0.58 - 0.96 mg/dL [facility] GFR/1.73 sq M.predicted among non-blacks MDRD (S/P/Bld) [Vol rate/Area] 135 mL/min/{1.73_m2} - PINF [facility] Comment on above: Estimated Glomerular Filtration Rate (eGFR) is calculated using the 2020 CKD-EPI creatinine equation. This equation utilizes serum creatinine, sex, and age as parameters. The creatinine assay has traceable calibration to isotope dilution-mass spectrometry. Refer to KDIGO guidelines for clinical interpretation. In patients with unstable renal function, e.g. those with acute kidney injury, the eGFR may not accurately reflect actual GFR. Glucose [Mass/Vol] 216 mg/dL High 74 - 99 mg/dL [facility] Comment on above: The [place] Diabete s Association (ADA) provides guidance for cutoff values for fasting glucose and random glucose. The ADA defines fasting as no caloric intake for at least 8 hours. Fasting plasma glucose results between 100 to 125 mg/dL indicate increased risk for diabetes (prediabetes). Fasting plasma glucose results greater than or equal to 126 mg/dL meet the criteria for diagnosis of diabetes. In the absence of unequivocal hyperglycemia, results should be confirmed by repeat testing. In a patient with classic symptoms of hyperglycemia or hyperglycemic crisis, random plasma glucose results greater than or equal to 200 mg/dL meet the criteria for diagnosis of diabetes. Reference: Standards of Medical Care in Diabetes 2016, [place] Diabetes Association. Diabetes Care. 2016.39(Suppl 1). Interpretation and review of laboratory results Abnormal [facility] Potassium [Moles/Vol] 3.9 mmol/L 3.7 - 5.1 mmol/L [facility] Protein [Mass/Vol] 7.3 g/dL 6.3 - 8.0 g/dL [facility] Sodium [Moles/Vol] 133 mmol/L Low 136 - 144 mmol/L [facility] Urea nitrogen [Mass/Vol] 7 mg/dL 7 - 21 mg/dL [facility] Comprehensive metabolic 2000 panelon 05-07-2024 Albumin [Mass/Vol] 4.4 g/dL Normal 3.9-4.9 [facility] Comment on above: Order Comment: Speci men Type: BLOOD SPECIMENOrdering Facility: [facility] Address: [address] [place], [place] [address] Performed By: #### 2 4323-8 ####[facility] [id number] [place] [address] [place] ALP [Catalytic activity/Vol] 69 U/L Normal 34-123 [facility] Comment on above: Order Comment: Speci men Type: BLOOD SPECIMENOrdering Facility: [facility] Address: [address] [place] [address] Performed By: #### 2 4323-8 ####[facility] [id number] [place] [address] [place] ALT [Catalytic activity/Vol] 16 U/L Normal 7-38 [facility] Comment on above: Order Comment: Speci men Type: BLOOD SPECIMENOrdering Facility: [facility] Address: [address] [place] [address] Performed By: #### 2 4323-8 ####[facility] MILLTOWNCLIA [id number] [place] [address] [place] Anion gap [Moles/Vol] 9 mmol/L Normal 8-15 [facility] Comment on above: Order Comment: Speci men Type: BLOOD SPECIMENOrdering Facility: [facility] Address: [address] [place] [address] Performed By: #### 2 4323-8 ####[facility] MILLTOWNCLIA [id number] [place] [address] [place] AST [Catalytic activity/Vol] 10 U/L Low 13-35 [facility] Comment on above: Order Comment: Speci men Type: BLOOD SPECIMENOrdering Facility: [facility] Address: [address] [place] [address] Performed By: #### 2 4323-8 ####[facility] H[facility]ITALWNCLIA [id number] [place] [address] [place] Bilirubin [Mass/Vol] 0.6 mg/dL Normal 0.2-1.3 [facility] Comment on above: Order Comment: Speci men Type: BLOOD SPECIMENOrdering Facility: [facility] Address: [address] [place] [address] Performed By: #### 2 4323-8 ####[facility] MILLTOWNCLIA [id number] [place] [address] [place] Calcium [Mass/Vol] 9.7 mg/dL Normal 8.5-10.2 [facility] Comment on above: Order Comment: Speci men Type: BLOOD SPECIMENOrdering Facility: [facility] Address: [address] [place] [address] Performed By: #### 2 4323-8 ####[facility] MILLWNCLIA [id number] [place] [address] [place] Chloride [Moles/Vol] 101 mmol/L Normal 98-107 [facility] Comment on above: Order Comment: Speci men Type: BLOOD SPECIMENOrdering Facility: [facility] Address: [address] [place] [address] Performed By: #### 2 4323-8 ####[facility] [id number] [place] [address] [place] CO2 [Moles/Vol] 23 mmol/L Normal 22-30 [facility] Comment on above: Order Comment: Speci men Type: BLOOD SPECIMENOrdering Facility: [facility] Address: [address] [place] [address] Performed By: #### 2 4323-8 ####[facility] [id number] [place] [address] [place] Creatinine [Mass/Vol] 0.43 mg/dL Low 0.58-0.96 [facility] Comment on above: Order Comment: Speci men Type: BLOOD SPECIMENOrdering Facility: [facility] Address: [address] [place] [address] Performed By: #### 2 4323-8 ####[facility] [id number] [address] [place] Creatinine and Glomerular filtration rate.predicted panel (S/P/Bld) 135 mL/min/1.73m??? Normal >=60 [facility] Comment on above: Order Comment: Speci men Type: BLOOD SPECIMENOrdering Facility: [facility] Address: [address] [place] [address] Result Comment: Ascencion mated Glomerular Filtration Rate (eGFR) is calculated using the 2020 CKD-EPI creatinine equation. This equation utilizes serum creatinine, sex, and age as parameters. The creatinine assay has traceable calibration to isotope dilution-mass spectrometry. Refer to KDIGO guidelines for clinical interpretation. In patients with unstable renal function, e.g. those with acute kidney injury, the eGFR may not accurately reflect actual GFR. Performed By: #### 2 4323-8 ####[facility] WENDYWNCLIA [id number] [place] [address] [place] Glucose [Mass/Vol] 216 mg/dL High 74-99 [facility] Comment on above: Order Comment: Speci men Type: BLOOD SPECIMENOrdering Facility: [facility] Address: [address] [place] [address] Result Comment: The [place] Diabetes Association (ADA) provides guidance for cutoff values for fasting glucose and random glucose. The ADA defines fasting as no caloric intake for at least 8 hours. Fasting plasma glucose results between 100 to 125 mg/dL indicate increased risk for diabetes (prediabetes).Fasting plasma glucose results greater than or equal to 126 mg/dL meet the criteria for diagnosis of diabetes. In the absence of unequivocal hyperglycemia, results should be confirmed by repeat testing. In a patient with classic symptoms of hyperglycemia or hyperglycemic crisis, random plasma glucose results greater than or equal to 200 mg/dL meet the criteria for diagnosis of diabetes.Reference: Standards of Medical Care in Diabetes 2016, [place] Diabetes Association. Diabetes Care. 2016.39(Suppl 1). Performed By: #### 2 4323-8 ####[facility] [id number] [place] [address] [place] Potassium [Moles/Vol] 3.9 mmol/L Normal 3.7-5.1 [facility] Comment on above: Order Comment: Speci men Type: BLOOD SPECIMENOrdering Facility: [facility] Address: [address] [place] [address] Performed By: #### 2 4323-8 ####[facility] VICKYLITTLETONNCLIA [id number] [place] [address] [place] Protein [Mass/Vol] 7.3 g/dL Normal 6.3-8.0 [facility] Comment on above: Order Comment: Speci men Type: BLOOD SPECIMENOrdering Facility: [facility] Address: [address] [place], [place] [address] Performed By: #### 2 4323-8 ####[facility] [id number] [place] [address] [place] Sodium [Moles/Vol] 133 mmol/L Low 136-144 [facility] Comment on above: Order Comment: Speci men Type: BLOOD SPECIMENOrdering Facility: [facility] Address: [address] [place] [address] Performed By: #### 2 4323-8 ####[facility] [id number] [place] [address] [place] Urea nitrogen [Mass/Vol] 7 mg/dL Normal 7-21 [facility] Comment on above: Order Comment: Speci men Type: BLOOD SPECIMENOrdering Facility: [facility] Address: [address] [place] [address] Performed By: #### 2 4323-8 ####[facility] [id number] [place] [address] [place] HBV surface Ag Ser Qlon 04-10 HBV surface Ag Ql (S) Negative Normal Negative [facility] Comment on above: Order Comment: Speci men Type: BLOOD SPECIMENOrdering Facility: [facility] Address: [address] [place] [address] Performed By: #### 5 195-3, 95842-3, 80691-8 ####[facility] LABCLIA [id number] [place] [address] [place] HCV Ab Ser Qlon 05-07-2024 HCV Ab Ql (S) Negative Normal Negative [facility] Comment on above: Order Comment: Speci men Type: BLOOD SPECIMENOrdering Facility: [facility] Address: [address] [place] [address] Result Comment: The result suggests no evidence of active infection with Hepatitis C virus. Should recent infection be suspected, repeat testing may be considered 4-6 weeks after this draw. Performed By: #### 1 6128-1 ####[facility] LABCLIA [id number] [place] [address] [place] HIV 1+2 Ab IA Qlon 4 HIV 1 and 2 Ab IA.rapid Nom (S/P/Bld) Normal [facility] Comment on above: Order Comment: Speci men Type: BLOOD SPECIMENOrdering Facility: [facility] Address: [address] [place] [address] Result Comment: Test not indicated. Performed By: #### 5 195-3, 64220-7, 32614-5 ####[facility] LABCLIA [id number] [place] [address] [place] HIV 1+2 Ab+HIV1 p24 Ag IA Ql Non-Reactive Normal Nonreactive [facility] Comment on above: Order Comment: Speci men Type: BLOOD SPECIMENOrdering Facility: [facility] Address: [address] [place] [address] Performed By: #### 5 195-3, 12114-3, 25939-8 ####[facility] LABCLIA [id number] [place] [address] [place] HIV immunoassay testing algorithm interpretation (S/P/Bld) [Interp] Normal [facility] Comment on above: Order Comment: Speci men Type: BLOOD SPECIMENOrdering Facility: [facility] Address: [address] [place] [address] Result Comment: No e vidence of HIV-1 or HIV-2 infection. Should recent infection be suspected, repeat testing may be considered 2-3 weeks after this draw.[place] Rev. Code 3701.243(E): This information has been disclosed to you from confidential records protected from disclosure by state law. ???You shall make no further disclosure of this information without the specific, written, and informed release of the individual to whom it pertains or as otherwise permitted by state law. A general authorization for the release of medical or other information is not sufficient for the purpose of the release of HIV test results or diagnoses. Performed By: #### 5 195-3, 50122-2, 44285-8 ####[facility] LABCLIA [id number] [place] [address] [place] PAP TESTon 05-07-2024 ADEQUACY Satisfactory for interpretation. Normal [facility] Comment on above: Order Comment: Speci men Type: FLUID SPECIMENOrdering Facility: [facility] Address: [address] [place] [address] Performed By: #### L [id number] ####[facility] LABCLIA [id number] [place] [address] [place] CASE REPORT Normal [facility] Comment on above: Order Comment: Speci men Type: FLUID SPECIMENOrdering Facility: [facility] Address: [address] [place] [address] Result Comment: Gyne cologic Cytology Report Case: [id number] Provider: Zayda Parker APRN.SELECT BANKER Collected: 05/07/2024 10:48 AMOrdering Location: OB/Gynecology Received: 05/07/2024 12:13 PMFirst Screen: Jayne [place], [place], ASCPSpecimen: Pap Test, ThinPrep, Cervix Performed By: #### L [id number] ####[facility] LABCLIA [id number] [place] [address] [place] CLINICAL HISTORY, CYTOLOGY, TRANSMISSION REPAIRER Routine Exam Normal [facility] Comment on above: Order Comment: Speci men Type: FLUID SPECIMENOrdering Facility: [facility] Address: [address] [place] [address] Result Comment: Preg nant (Indicate Weeks) Performed By: #### L [id number] ####[facility] LABCLIA [id number] [place] [address] [place] CYTOLOGY PAP OTHER INTERPRETATION Predominance of coccobacilli consistent with shift in vaginal hima. Normal [facility] Comment on above: Order Comment: Speci men Type: FLUID SPECIMENOrdering Facility: [facility] Address: [address] [place] [address] Performed By: #### L [id number] ####[facility] LABCLIA [id number] [place] [address] [place] FINAL PERFORMING LAB Normal [facility] Comment on above: Order Comment: Speci men Type: FLUID SPECIMENOrdering Facility: [facility] Address: [address] [place] [address] Result Comment: Tech nical component, spool cleaner hand screening performed at [facility], [address] [place] [address] [place] [address] CLIA# [id number] interpretation performed at [facility], [address] [place], [place] [address] CLIA# [id number] Director: Gavin Boss M.D. Performed By: #### L [id number] ####[facility] LABCLIA [id number] [place] [address] [place] INTERPRETATION, CYTOLOGY, TRANSMISSION REPAIRER Normal [facility] Comment on above: Order Comment: Speci men Type: FLUID SPECIMENOrdering Facility: [facility] Address: [address] [place] [address] Result Comment: Nega tive for intraepithelial lesion or malignancy. Performed By: #### L [id number] ####[facility] LABCLIA [id number] [place] [address] [place] LMP 03/13/2024 Normal [facility] Comment on above: Order Comment: Speci men Type: FLUID SPECIMENOrdering Facility: [facility] Address: [address] [place] [address] Performed By: #### L [id number] ####[facility] LABCLIA [id number] [place] [address] [place] PAP DISCLAIMER COMMENT The Pap Smear is a screening test for cervical cancer. False negative results occur with all screening tests, emphasizing the need for rescreening at recommended intervals, and clinical correlation. Normal [facility] Comment on above: Order Comment: Speci men Type: FLUID SPECIMENOrdering Facility: [facility] Address: [address] [place] [address] Performed By: #### L [id number] ####[facility] LABCLIA [id number] [place] [address] [place] PAP INTERACTIVE DEVELOPER COMMENT Normal [facility] Comment on above: Order Comment: Speci men Type: FLUID SPECIMENOrdering Facility: [facility] Address: [address] [place] [address] Performed By: #### L [id number] ####[facility] LABCLIA [id number] [address] [place] POC GROUP RESERVATIONS COORDINATOR ULTRASOUNDon 05-07-20 Indication Viability; confirm cardiac activity Impression Single intrauterine gestational sac, cardiac activity is visualized, CRL is appropriate for clinical dates, corresponding to ADA 12/18/2024 Recommendations Follow up for NT scan if desired Method Transabdominal ultrasound examination, Transvaginal ultrasound examination [place] . Number of embryos: 1 Dating LMP on: 03/13/2024 [place] by LMP 7 w + 6 d ADA by LMP: 12/18/2024 Ultrasound examination on: 05/07/2024 GA by U/S based upon: CRL GA by U/S 7 w + 1 d ADA by U/S: 12/23/2024 Assigned: based on the LMP, selected on 05/07/2024 Assigned GA 7 w + 6 d Assigned ADA: 12/18/2024 Biometry Standard FHR 152 bpm CRL 10.4 mm 7w 1d 1% Hadlock Assessment Gestational sac: visualized Location: intrauterine Yolk sac: visualized Embryo: visualized CRL 10.4 mm 7w 1d 1% Hadlock Cardiac activity: present FHR 152 bpm General Evaluation Cardiac activity present. FHR 152 bpm Performed By: Zayda Parker NP Read By: Zayda Parker NP MATERNAL MEDICINE [facility] Radiology Study observation (narrative) [facility] Prot/Creat Uron 05-07-2024 Protein/Creatinine (U) [Mass ratio] 0.09 mg/mg Normal <0.15 [facility] Comment on above: Order Comment: Speci men Type: URINE SPECIMENOrdering Facility: [facility] Address: [address] [place] [address] Result Comment: Adul t Proteinuria Categories:<0.15 mg/mg is considered normal to mildly increased0.15 - 0.50 mg/mg is considered moderately increased>0.50 mg/mg is considered severely increasedKDIGO. (2013). KDIGO 2012 Clinical Practice Guideline for the Evaluation and Management of Chronic Kidney Disease. Official Journal of the International Society of Nephrology, 3(1), 1-150. Performed By: #### 2 890-2 ####[facility] LABIA [id number] [place] [address] [place] Protein/Creatinine (U) [Mass ratio]on 05-07-2024 Creatinine (U) [Mass/Vol] 58.6 mg/dL Normal 20.0-300.0 [facility] Comment on above: Order Comment: Speci men Type: URINE SPECIMENOrdering Facility: [facility] Address: [address] [place] [address] Performed By: #### 2 890-2 ####[facility] [id number] [place] [address] [place] Protein (U) [Mass/Vol] 5 mg/dL Normal 0-20 [facility] Comment on above: Order Comment: Speci men Type: URINE SPECIMENOrdering Facility: [facility] Address: [address] [place] [address] Performed By: #### 2 890-2 ####[facility] LABUNIVERS[facility] [id number] [place] [id number] [place] RUBELLA IGG ANTIBODYon 05-07 RUBELLA IGG AB, QUAL Negative Abnormal Positive [facility] Comment on above: Order Comment: Speci men Type: BLOOD SPECIMENOrdering Facility: [facility] Address: [address] [place] [address] Result Comment: The result suggests no history of Rubella vaccination or exposure to Rubella virus, however, some individuals with past history of Rubella vaccination may test negative using this test as immunity to Rubella virus wanes over time after vaccination. Please correlate with vaccination history if applicable. Performed By: #### R [id number] ####[facility] LABCLIA [id number] [place] [address] [place] Reagin and Treponema pallidu m IgG and IgM [Interp]on 05-07-2024 T. pallidum IgG+IgM IA Ql (S) Non-Reactive Normal Nonreactive [facility] Comment on above: Order Comment: Speci men Type: BLOOD SPECIMENOrdering Facility: [facility] Address: [address] [place] [address] Performed By: #### 5 195-3, 60223-1, 34889-9 ####[facility] LABIA [id number] [place] [address] [place] Reagin+T pallidum IgG+IgM Se rPl-Impon 05-07-2024 Reagin and Treponema pallidum IgG and IgM [Interp] Cannot exclude recent Treponemal infection if specimen collected within 7-10 days after appearance of suspect lesions or 2-3 weeks after an exposure. Clinical correlation is required. Normal [facility] Comment on above: Order Comment: Speci men Type: BLOOD SPECIMENOrdering Facility: [facility] Address: [address] [place] [address] Performed By: #### 5 195-3, 96000-4, 53498-3 ####[facility]IA [id number] [place] [address] [place] TSH SerPl-aCncon 05-07-2024 TSH Qn 0.807 m[IU]/L Normal 0.270-4.200 [facility] Comment on above: Order Comment: Speci men Type: BLOOD SPECIMENOrdering Facility: [facility] Address: [address] [place] [address] Result Comment: If t he patient is , TSH reference range varies by gestational period:First Trimester (weeks 9-12): 0.180-2.990 mIU/LSecond Trimester: 0.110-3.980 mIU/LThird Trimester: 0.480-4.710 mIU/Jerrell Gonzalez et al. A Practical Approach for the Verifications and Determination of Site- and Trimester-Specific Reference Intervals for Thyroid Function tests in . Thyroid, 2019:29:3:412-420. Lm Grijalva, et al. 2017 Guidelines of the [place] Thyroid Association for the Diagnosis and Management of Thyroid Disease during and the . Thyroid, 2017:27:3:315-389. Performed By: #### 3 016-3 ####[facility]IA [id number] [address] TYPE + SCREEN PRENATALon ABO A Normal [facility] Comment on above: Order Comment: Speci men Type: BLOOD SPECIMENOrdering Facility: [facility] Address: [address] [place] [address] Performed By: #### T SPN ####[facility] BLOOD BANKCLIA [id number] [place] [address] [place] Rh Nom (Bld) Positive Normal [facility] Comment on above: Order Comment: Speci men Type: BLOOD SPECIMENOrdering Facility: [facility] Address: [address] [place] [address] Performed By: #### T SPN ####[facility] BLOOD BANKCLIA [id number] [place] [address] [place] TYPE AND SCREEN EXPIRATION 05/10/2024 23:59 Normal [facility] Comment on above: Order Comment: Speci men Type: BLOOD SPECIMENOrdering Facility: [facility] Address: [address] [place] [address] Performed By: #### T SPN ####[facility] BLOOD BANKCLIA [id number] [place] [address] [place] CNOVon 05-03-2024 CNOV Normal [facility] CNPNon 05-03-2024 CNPN Normal [facility] HEMOGLOBIN A1C (POC)on 05-03 HbA1c (Bld) [Mass fraction] 10.5 % Abnormal 4.3 - 5.6 % [facility] Comment on above: Location:[facility], [address] [place] [address] Point of care (POC) Hemoglobin A1c (HGBA1C) testing is intended to assess glucose control and provide a management tool for patients known to have diabetes and their healthcare providers. Target HGBA1C levels may depend on specific clinical circumstances. POC HGBA1C is not intended for use as a diagnostic or screening test; laboratory-based testing should be used for diagnostic purposes. The following information is supplemental and may not be applicable to specific diabetes management situations: The POC device fruit canner provides a normal range of 4.2% to 6.5% for the HGBA1C POC test. However, the [place] [employer] guidelines indicate that patients with HGBA1C in the range of 5.7% to 6.4% are at increased risk for development of diabetes and that intervention by lifestyle modification may be beneficial. A HGBA1C level greater than or equal to 6.5% is considered diagnostic of diabetes, pending confirmatory testing. Use of HGBA1C testing to evaluate glucose control may not be appropriate for patients with hemoglobin variants or other conditions (e.g. anemia) that alter red blood cell lifespan. Interpretation and review of laboratory results Abnormal [facility] 04-23-2024 CNPN Normal [facility]Non [facility]-2024 [facility] Bacteria identifiedon 2023 Bacteria identified Cx Nom (U) Test: Urine Culture Specimen Source: Clean Catch/Voided Specimen Type: Urine Specimen Date: 04/18/20241916 Result Date: 04/21/2024 105 Result Status: Final result Abnormal: Yes Resulting Lab: [facility] [address] [place] [address] CULTURE >100,000 Escherichia coli (Abnormal) SUSCEPTIBILITY Escherichia coli METHOD MICROSCAN --- AMPICILLIN <=8.000 ug/ml Susceptible CEFAZOLIN <=2 ug/ml Susceptible CEFAZOLIN (UNCOMPLICATED UTIS ONLY) <=2 ug/ml Susceptible CIPROFLOXACIN <=0.250 ug/ml Susceptible GENTAMICIN <=2.000 ug/ml Susceptible NITROFURANTOIN <=32 ug/ml Susceptible PIPERACILLIN/TAZOBACTAM <=8.000 ug/ml Susceptible TRIMETHOPRIM/SULFAMETHO XAZOLE <=2/38 ug/ml Susceptible Abnormal [facility] Comment on above: Performed By: #### 6 30-4 #### AQUILES Gonzalez ([id number]) [facility] ([facility]) [address] [place] [address] C. trachomatis and N. gonorr hoeae DNA SUMIT+probe Nom (Unsp spec)on 04-18-2024 C. trachomatis rRNA SUMIT+probe Ql (Unsp spec) Not detected Not Detected [facility] Interpretation and review of laboratory results Normal [facility] N. gonorrhoeae DNA Probe+sig amp Ql (Unsp spec) Not detected Not Detected [facility] C. trachomatis rRNA SUMIT+probe Ql (Unsp spec) Not detected Normal Not Detected [facility] Comment on above: Performed By: #### 3 6903-3 #### JACQUELYN LOPEZ ([id number]) [facility] ([facility]) [address] [place] [address] N. gonorrhoeae DNA Probe+sig amp Ql (Unsp spec) Not detected Normal Not Detected [facility] Comment on above: Performed By: #### 3 6903-3 #### JACQUELYN LOPEZ ([id number]) [facility] ([facility]) [address] [place] [address] Choriogonadotropin.beta subu niton 04-18-2024 HCG.beta subunit Qn 2171 m[IU]/mL High <5 Un [facility] Comment on above: Order Comment: Total HCG measurement is performed using the [place] Access Immunoassay which detects intact HCG and free beta HCG subunit. This test is not indicated for use as a tumor marker. HCG testing is performed using a different test methodology at [facility] than formerly [facility]. Direct result comparison should only be made within the same method. Result Comment: Low- level positive HCG results can be seen in early , in gregory- or post-menopausal females due to normal pituitary HCG production, or with analytic interference. Repeat testing in 48-72 hours can aid in assessing for as results should double in this time period. FSH measurement is recommended in gregory- or post-menopausal females as concurrent elevation of FSH can support pituitary production as the source of the HCG elevation. Performed By: #### 2 1198-7 #### JACQUELYN LOPEZ ([id number]) [facility] ([facility]) [address] [place] [address] HCG ( test) IA.rapi d Ql (U)Ordered By: Lemuel Shetty on 04-18-2024 HCG ( test) Ql (U) Positive Abnormal NEGATIVE [facility] Interpretation and review of laboratory results Abnormal [facility] HCG ( test) IA.rapi d Ql (U)on 04-18-2024 HCG ( test) Ql (U) Positive Abnormal NEGATIVE [facility] Comment on above: Performed By: #### 8 0384-1 #### JACQUELYN LOPEZ ([id number]) [facility] ([facility]) [address] [place], [place] [id number] HCG.beta subunit Qnon 2023 Interpretation and review of laboratory results Abnormal [facility] Total HCG measuremen t is performed using the [place] Access Immunoassay which detects intact HCG and free beta HCG subunit. This test is not indicated for use as a tumor marker. HCG testing is performed using a different test methodology at [facility] than formerly [facility]. Direct result comparison should only be made within the same method. [facility] No Panel Informationon 04-18 Interpretation and review of laboratory results Abnormal [facility] Urinalysis complete W Reflex Culture panel (U)on 04-18-2024 Appearance (U) Turbid Abnormal Clear [facility] Bilirubin (U) [Mass/Vol] Negative NEGATIVE [facility] Color (U) Yellow Light-Yellow , Yellow, Dark-Yellow [facility] Glucose Auto test strip (U) [Mass/Vol] OVER (4+) Abnormal Normal mg/dL [facility] Ketones (U) [Mass/Vol] 100 (3+) Abnormal NEGATIVE mg/dL [facility] Leukocyte esterase Auto test strip Ql (U) 500 Zonia/ L Abnormal NEGATIVE [facility] Nitrite Auto test strip Ql (U) 2+ Abnormal NEGATIVE [facility] pH (U) 6 [pH] 5.0, 5.5, 6.0, 6.5, 7.0, 7.5, 8.0 [facility] Protein (U) [Mass/Vol] 30 (1+) Abnormal NEGATIVE, 10 (TRACE), 20 (TRACE) mg/dL [facility] RBC (U) [#/Vol] 0.03 (TRACE) Abnormal NEGATIVE [facility] Specific gravity (U) [Rel density] 1.048 Abnormal 1.005 - 1.035 [facility] Urobilinogen (U) [Mass/Vol] 2 (1+) Abnormal Normal mg/dL [facility] Comment on above: Due to a manufacturi ng issue, low positive urobilinogen results may be falsely positive. Correlate with urine bilirubin and additional clinical/laboratory findings to assess the risk of hemolytic anemia or liver disease. If clinically indicated, repeat testing with an alternate method is available by contacting the laboratory within 24 hours. Some pigments and medications may cause a false positive urobilinogen. OVER is reported whe n the result is greater than the clinically reportable range. [facility] Appearance (U) Turbid Normal Clear [facility] Comment on above: Order Comment: OVER is reported when the result is greater than the clinically reportable range. Performed By: #### 5 8077-9 #### VALLADARES JOHN ([id number]) [facility] ([facility]) [address] [place] [address] Bilirubin (U) [Mass/Vol] Negative Normal NEGATIVE [facility] Comment on above: Order Comment: OVER is reported when the result is greater than the clinically reportable range. Performed By: #### 5 8077-9 #### JACQUELYN LOPEZ ([id number]) [facility] ([facility]) [address] [place] [address] Color (U) Yellow Normal Light-Yellow , Yellow, Dark-Yellow [facility] Comment on above: Order Comment: OVER is reported when the result is greater than the clinically reportable range. Performed By: #### 5 8077-9 #### JACQUELYN LOPEZ ([id number]) [facility] ([facility]) [address] [place] [address] Glucose Auto test strip (U) [Mass/Vol] OVER (4+) Abnormal Normal [facility] Comment on above: Order Comment: OVER is reported when the result is greater than the clinically reportable range. Performed By: #### 5 8077-9 #### JACQUELYN LOPEZ ([id number]) [facility] ([facility]) [address] [place] [address] Ketones (U) [Mass/Vol] 100 (3+) Abnormal NEGATIVE [facility] Comment on above: Order Comment: OVER is reported when the result is greater than the clinically reportable range. Performed By: #### 5 8077-9 #### JACQUELYN LOPEZ ([id number]) [facility] ([facility]) [address] [place], [place] [address] Leukocyte esterase Auto test strip Ql (U) 500 Zonia/???L Abnormal NEGATIVE [facility] Comment on above: Order Comment: OVER is reported when the result is greater than the clinically reportable range. Performed By: #### 5 8077-9 #### JACQUELYN LOPEZ ([id number]) [facility] ([facility]) [address] [place], [place] [address] Nitrite Auto test strip Ql (U) 2+ Abnormal NEGATIVE [facility] Comment on above: Order Comment: OVER is reported when the result is greater than the clinically reportable range. Performed By: #### 5 8077-9 #### JACQUELYN LOPEZ ([id number]) [facility] ([facility]) [address] [place] [address] pH (U) 6.0 [pH] Normal 5.0, 5.5, 6.0, 6.5, 7.0, 7.5, 8.0 [facility] Comment on above: Order Comment: OVER is reported when the result is greater than the clinically reportable range. Performed By: #### 5 8077-9 #### JACQUELYN LOPEZ ([id number]) [facility] ([facility]) [address] [place] [address] Protein (U) [Mass/Vol] 30 (1+) Abnormal NEGATIVE, 10 (TRACE), 20 (TRACE) [facility] Comment on above: Order Comment: OVER is reported when the result is greater than the clinically reportable range. Performed By: #### 5 8077-9 #### JACQUELYN LOPEZ ([id number]) [facility] ([facility]) [address] [place] [address] RBC (U) [#/Vol] 0.03 (TRACE) Abnormal NEGATIVE [facility] Comment on above: Order Comment: OVER is reported when the result is greater than the clinically reportable range. Performed By: #### 5 8077-9 #### JACQUELYN LOPEZ ([id number]) [facility] ([facility]) [address] [place] [address] Specific gravity (U) [Rel density] 1.048 Normal 1.005-1.035 [facility] Comment on above: Order Comment: OVER is reported when the result is greater than the clinically reportable range. Performed By: #### 5 8077-9 #### JACQUELYN LOPEZ ([id number]) [facility] ([facility]) [address] [place] [address] Urobilinogen (U) [Mass/Vol] 2 (1+) Abnormal Normal [facility] Comment on above: Order Comment: OVER is reported when the result is greater than the clinically reportable range. Result Comment: Due to a manufacturing issue, low positive urobilinogen results may be falsely positive. Correlate with urine bilirubin and additional clinical/laboratory findings to assess the risk of hemolytic anemia or liver disease. If clinically indicated, repeat testing with an alternate method is available by contacting the laboratory within 24 hours. Some pigments and medications may cause a false positive urobilinogen. Performed By: #### 5 8077-9 #### JACQUELYN LOPEZ ([id number]) [facility] ([facility]) [address] [place] [address] Urinalysis microscopic panel Auto Ql (U)on 04-18-2024 Bacteria Auto (Urine sed) [#/Area] 4+ Abnormal NONE SEEN /HPF [facility] Epithelial cells.squamous Auto (Urine sed) [#/Area] 10-25 (FEW) Reference range not established. /HPF [facility] Mucus Auto (Urine sed) [#/Area] FEW Reference range not established. /LPF [facility] RBC Auto (Urine sed) [#/Area] >20 Abnormal NONE, 1-2, 3-5 /HPF [facility] WBC Auto (Urine sed) [#/Area] >50 Abnormal 1-5, NONE /HPF [facility] Bacteria Auto (Urine sed) [#/Area] 4+ /HPF Abnormal NONE SEEN [facility] Comment on above: Performed By: #### 5 3315-8 #### JACQUELYN LOPEZ ([id number]) [facility] ([facility]) [address] [place] [address] Epithelial cells.squamous Auto (Urine sed) [#/Area] 10-25 (FEW) Normal Reference range not established. [facility] Comment on above: Performed By: #### 5 3315-8 #### JACQUELYN LOPEZ ([id number]) [facility] ([facility]) [address] [place] [address] Mucus Auto (Urine sed) [#/Area] FEW Normal Reference range not established. [facility] Comment on above: Performed By: #### 5 3315-8 #### JACQUELYN LOPEZ ([id number]) [facility] ([facility]) [address] [place] [address] RBC Auto (Urine sed) [#/Area] >20 Abnormal NONE, 1-2, 3-5 [facility] Comment on above: Performed By: #### 5 3315-8 #### JACQUELYN LOPEZ ([id number]) [facility] ([facility]) [address] [place] [address] WBC Auto (Urine sed) [#/Area] >50 Abnormal 1-5, NONE [facility] Comment on above: Performed By: #### 5 3315-8 #### JACQUELYN LOPEZ ([id number]) [facility] ([facility]) [facility] [place] [address] hCG, quantitative, on 04-18-2024 HCG.beta subunit Qn 2171 m[IU]/mL [facility] Comment on above: Low-level positive H CG results can be seen in early , in gregory- or post-menopausal females due to normal pituitary HCG production, or with analytic interference. Repeat testing in 48-72 hours can aid in assessing for as results should double in this time period. FSH measurement is recommended in gregory- or post-menopausal females as concurrent elevation of FSH can support pituitary production as the source of the HCG elevation. CBC + DIFFon 04-15-2024 Baso # 0.01 x10EE3/UL Normal 0.00 - 0.10 [facility] Comment on above: Performed By: #### 2 [address] ####[place] [address] Basophils/100 WBC (Bld) 0.3 % Normal 0.0 - 2.0 [facility] Comment on above: Performed By: #### 2 99063 ####[place] [address] CBC + DIFF Normal [facility] Comment on above: Result Comment: CBC- COMPLETE BLOOD COUNT Performed By: #### 2 83387 ####[place] [address] EO # 0.11 x10EE3/UL Normal 0.00 - 0.50 [facility] Comment on above: Performed By: #### 2 34103 ####[place] [address] Eosinophils/100 WBC (Bld) 2.4 % Normal 0.0 - 7.0 [facility] Comment on above: Performed By: #### 2 14554 ####[facility],[address] [place], [place] [address] Erythrocyte distribution width (RBC) [Ratio] 12.7 % Normal 12.0 - 15.6 [facility] Comment on above: Performed By: #### 2 40014 ####[facility],[address] [place] [address] Hematocrit (Bld) [Volume fraction] 44.1 % Normal 34.0 - 46.0 [facility] Comment on above: Performed By: #### 2 10276 ####[facility],[address] [place] [address] Hemoglobin (Bld) [Mass/Vol] 15.2 g/dL Normal 12.0 - 16.0 [facility] Comment on above: Performed By: #### 2 55865 ####[facility],[address] [place] [address] Lymph # 1.74 x10EE3/UL Normal 0.80 - 2.80 [facility] Comment on above: Performed By: #### 2 61819 ####[facility],[address] [place] [address]102 Lymphocytes/100 WBC (Bld) 38.8 % Normal 20.0 - 45.0 [facility] Comment on above: Performed By: #### 2 20894 ####[facility],[address] [place] [address]353 MANUAL DIFF N/A Normal [facility] Comment on above: Performed By: #### 2 09661 ####[facility],[address] [place] [address]693 MCH (RBC) [Entitic mass] 29 pg Normal 27 - 33 [facility] Comment on above: Performed By: #### 2 50300 ####[facility],[address] [place] [address] MCHC 34 X10 3 Normal 32 - 36 [facility] Comment on above: Performed By: #### 2 96759 ####[facility],[address] [place] [address]194 MCV (RBC) [Entitic vol] 84 fL Normal 80 - 99 [facility] Comment on above: Performed By: #### 2 61327 ####[facility],[address] [place] [address] Juncos # 0.48 x10EE3/UL Normal 0.20 - 1.00 [facility] Comment on above: Performed By: #### 2 32444 ####[facility],[address] [place] [address] MONOS % 10.7 % High 0.0 - 10.0 [facility] Comment on above: Performed By: #### 2 30646 ####[facility],[address] [place], [place] [address] Morphology Jorge (Bld) [Interp] N/A Normal [facility] Comment on above: Performed By: #### 2 45279 ####[facility],[address] [place] [address] Neut # 2.14 x10EE3/UL Normal 1.50 - 7.10 [facility] Comment on above: Performed By: #### 2 77823 ####[facility],[address] [place], [place] [address] Neutrophils/100 WBC (Bld) 47.9 % Normal 46.0 - 76.0 [facility] Comment on above: Performed By: #### 2 36450 ####[facility],[address] [place], [place] [address] PLATELET 283 x10EE3/UL Normal 150 - 450 [facility] Comment on above: Performed By: #### 2 13840 ####[facility],[address] [place] [address] 81927 Platelet mean volume (Bld) [Entitic vol] 7.1 fL Normal 6.6 - 10.5 [facility] Comment on above: Result Comment: AUTO MATED DIFFERENTIAL Performed By: #### 2 32752 ####[facility],[address] [place] [address] 99782 RBC 5.24 x 10EE6/UL Normal 4.10 - 5.30 [facility] Comment on above: Performed By: #### 2 84642 ####[facility],[address] [place] [address] 11936 WBC 4.5 x 10EE3/UL Normal 4.5 - 10.8 [facility] Comment on above: Performed By: #### 2 26576 ####[facility],[address] [place] [address] 88507 CMP with eGFRon 04-15-2024 AGE 29 years Normal [facility] Comment on above: Performed By: #### 2 40694 #### [facility],[address] [place] [address] 63936 Albumin [Mass/Vol] 3.7 g/dL Normal 3.4 - 5.0 [facility] Comment on above: Performed By: #### 2 86616 #### [facility],[address] [place] [address] 25613 Albumin/Globulin [Mass ratio] 0.9 {ratio} Normal 0.9 - 1.6 [facility] Comment on above: Performed By: #### 2 05636 #### [facility],[address] [place] [address] 25466 ALK PHOS 89 U/L Normal 46 - 116 [facility] Comment on above: Performed By: #### 2 08557 #### [facility],[address] [place] [address] 07249 ALT [Catalytic activity/Vol] 28 U/L Normal 16 - 63 [facility] Comment on above: Performed By: #### 2 86245 #### [facility],[address] [place] [address] 64418 Anion gap [Moles/Vol] 20 mmol/L Normal 10 - 20 [facility] Comment on above: Performed By: #### 2 87255 #### [facility],[address] [place] [address] 95297 AST [Catalytic activity/Vol] 12 U/L Low 13 - 39 [facility] Comment on above: Performed By: #### 2 40601 #### [facility],[address] [place] [address] 34950 B/C RATIO 19 ratio Normal 0 - 30 [facility] Comment on above: Performed By: #### 2 53324 #### [facility],[address] [place] [address]115 Bilirubin [Mass/Vol] 0.7 mg/dL Normal 0.2 - 1.0 [facility] Comment on above: Performed By: #### 2 34387 #### [facility],[address] [place] [address] 66623 Calcium [Mass/Vol] 8.9 mg/dL Normal 8.5 - 10.1 [facility] Comment on above: Performed By: #### 2 89589 #### [facility],[address] [place] [address] 56644 Chloride [Moles/Vol] 101 mmol/L Normal 98 - 107 [facility] Comment on above: Performed By: #### 2 34211 #### [facility],[address] [place] [address] 36096 CMP with eGFR Normal [facility] Comment on above: Result Comment: COMP REHENSIVE METABOLIC PANEL Performed By: #### 2 60913 #### [facility],[address] [place] [address] 12299 CO2 [Moles/Vol] 20.5 mmol/L Low 21.0 - 32.0 [facility] Comment on above: Performed By: #### 2 56378 #### [facility],[address] [place] [address] 43648 Creatinine [Mass/Vol] 0.64 mg/dL Normal 0.55 - 1.02 [facility] Comment on above: Performed By: #### 2 54635 #### [facility],[address] [place] [address] 13219 GFR/1.73 sq M.predicted among non-blacks MDRD (S/P/Bld) [Vol rate/Area] mL/min/{1.73_m2} Normal 60 - 999 [facility] Comment on above: Performed By: #### 2 [id number] #### [facility],[address] [place] [address] [phone] Result Comment: ACCO RDING TO THE NATIONAL KIDNEY DISEASE EDUCATION PROGRAM(NKDE), A NORMAL eGFR IS A VALUE GREATER THAN OR EQUAL TO 60 ML/MIN/1.73 SQ METERS. CHRONIC KIDNEY DISEASE: <60mL/MIN/1.73 SQ METERS KIDNEY FAILURE: <15mL/MIN/1.73 SQ METERS THIS TEST SHOULD ONLY BE USED FOR PATIENTS 18 YEARS OF AGE AND OLDER. Globulin (S) [Mass/Vol] 4.1 g/dL High 1.5 - 3.8 [facility] Comment on above: Performed By: #### 2 [id number] #### [facility],[address] [place] [address] [id number] Glucose [Mass/Vol] 235 mg/dL High 74 - 106 [facility] Comment on above: Performed By: #### 2 [id number] #### [facility],[address] [place] [address] [phone] Potassium [Moles/Vol] 3.4 mmol/L Low 3.5 - 5.1 [facility] Comment on above: Performed By: #### 2 [id number] #### [facility],[address] [place] [address] [phone] Protein [Mass/Vol] 7.8 g/dL Normal 6.4 - 8.2 [facility] Comment on above: Performed By: #### 2 [id number] #### [facility],[address] [place], [place] [id number] Sodium [Moles/Vol] 138 mmol/L Normal 136 - 145 [facility] Comment on above: Performed By: #### 2 [id number] #### [facility],[address] [place] [address] [id number] Urea nitrogen [Mass/Vol] 12 mg/dL Normal 7 - 18 [facility] Comment on above: Performed By: #### 2 [id number] #### [facility],[address] [place], [place] [id number] ED MED ADMINISTRATION DETAIL on 04-15-2024 ED MED ADMINISTRATION DETAIL Cotton Classer Aide Medication Administration Record [place] [id number] 04/14/2024 Patient: MELISSA KAUR Sex: Female : 1995 Age: 29y MEASUREMENTS: Wt: 77.1 kg ALLERGIES: Reglan, Seroquel, Zofran, Zoloft Medication Ordered Medication Administration Date/Time IV NS 0.9 % 1000 01:22 04/15 IV NS 0.9 % 1000 mL started in bag#1 1000 mL at Started mL at 999 mL/hr 999 mL/hr via Site# 1. Allergies verified and confirmed 5 rights. IV 01:22 04/15/2024 (NOW x1) patency established. IV site checked: no pain, redness, or swelling. Augustine Figueroa R.N. IV flushed thoroughly pre-medication administration. Information Stopped reviewed with patient including reason for taking this medication. 02:51 04/15/2024 Verbalizes understanding. - 01:23 Gely Patterson R.N. Scanned 02:51 04/15 Medication Discontinued: bag #1 infused. Total amount infused: 1000 mL. IV patency established. IV site checked: no pain, redness, or swelling. IV flushed thoroughly post-medication administration. - 03:06 Leona Roberts R.N. 1 of 1 Normal [facility] ED NURSES CLINICAL NOTEon ED NURSES CLINICAL NOTE Nurse Narrative Nurse Clinical Narrative [address] [place] [address] [id number] 04/14/2024 Patient: MELISSA KAUR Sex: Female : 1995 Age: 29y Disposition: Discharge to Home Disposition Decision Time: 05:14 04/15/2024 Departure Time: 05:20 04/15/2024 TRIAGE Arrived by private vehicle. Historian: patient. Triage time: 21:53 04/14/2024. Acuity: LEVEL 3. Chief Complaint: ABDOMINAL PAIN and NAUSEA. This started yesterday. SEPSIS SCREEN: NEGATIVE. SIRS criteria negative: heart rate greater than 90. No possible sources of infection. -- 21:59 04/14/24 FABRIZIO Bryan R.N. 21:59 04/14/24. BP: 144/92 MAP: 109. HR: 108. RR: 16. O2 saturation: 97% Temperature: 98.5 F. Pain level now 11/16. -- 21:59 04/14/24 FABRIZIO Bryan R.N. Measurements: 21:57 04/14/24 Wt: 77.1 kg -- 21:57 04/14/24 FABRIZIO Bryan R.N. Medications: unable to obtain home medications -- 21:54 04/14/24 FABRIZIO Bryan R.N. Allergies: 1 of 4 Nurse Narrative Zofran -- 21:55 04/14/24 FABRIZIO Bryan R.N. Reglan -- 21:55 04/14/24 FABRIZIO Bryan R.N. Zoloft -- 21:55 04/14/24 FABRIZIO Bryan R.N. Seroquel -- 21:55 04/14/24 FABRIZIO Bryan R.N. Problems: Depression -- 21:54 04/14/24 FABRIZIO Bryan R.N. Anxiety disorder -- 21:54 04/14/24 AFBRIZIO Bryan R.N. Bipolar Disorder -- 21:54 04/14/24 FABRIZIO Bryan R.N. Asthma -- 21:54 04/14/24 FABRIZIO Bryan R.N. ADDITIONAL SURGERIES: Cholecystectomy -- 21:54 04/14/24 FABRIZIO Bryan R.N. History 21:53 04/14/24. SOCIAL HX: Heavy tobacco smoker- less than 1 pack per day. No alcohol use or drug use. The patient has not traveled outside the [place] Infectious disease exposure: No infectious disease exposure. ABUSE ASSESSMENT: The patient answered yes to the question(s) Do you feel safe in your home? and no to the question(s) Are you afraid to go home?. SELF HARM ASSESSMENT: Self harm assessment was performed. The patient answered no to the question(s) Have you recently felt down, depressed, or hopeless? and Do you have thoughts of harming or killing yourself?. FALL RISK ASSESSMENT: Fall risk assessment completed. No risk factors identified. -- 21:59 04/14/24 FABRIZIO Bryan R.N. Interventions 21:53 04/14/24. Advanced care plan discussed with patient. Patient does not have advanced directive. -- 22:00 04/14/24 FABRIZIO Bryan R.N. 2 of 4 Nurse Narrative PHYSICAL ASSESSMENT 00:12 04/15/24. Ambulatory to room. ( cough for several days, slightly SOB, cramping lower abd pain.). GENERAL / NEURO / PSYCH: Alert. Oriented X 4. Appears in no acute distress. RESPIRATORY: Respirations not labored. ( cough, slighly SOB). CVS: Normal sinus rhythm noted. Capillary refill less than 2 seconds. GI / : Abdominal tenderness in the right lower quadrant, suprapubic area and left lower quadrant (cramping. pt states she is late on her period). -- 00:12 04/15/24 FABRIZIO Figueroa R.N. NURSING PROGRESS NOTES 00:04 04/15/24. Rounding: Proximity of possessions / care items: call light within easy reach. Set expectations: advised patient of rounding protocol timing. Call light placed in reach. Side rails up x 1. Bed placed in lowest position. Brakes of bed on. -- 00:04 04/15/24 FABRIZIO Roberts R.N. 01:06 04/15/24. Patient ID band checked: patient confirmed. Instructions provided to collect clean catch urine and patient verbalized understanding. Clean catch urine collected with return of yellow-colored urine. -- 03:06 04/15/24 FABRIZIO Figueroa R.N. 01:22 04/15/24. IV NS 0.9 % 1000 mL started in bag#1 1000 mL at 999 mL/hr via Site# 1. Allergies verified and confirmed 5 rights. IV patency established. IV site checked: no pain, redness, or swelling. IV flushed thoroughly pre-medication administration. Information reviewed with patient including reason for taking this medication. Verbalizes understanding. -- 01:23 04/15/24 FABRIZIO Figueroa R.N. 02:06 04/15/24. Rounding: Pain: denies pain. Position: states comfortable. Set expectations: advised patient of rounding protocol timing and asked if they needed anything else at this time. -- 03:04/15/24 FABRIZIO Figueroa R.N. 02:51 04/15/24. IV NS 0.9 %: Medication Discontinued. bag #1 infused. Total amount infused: 1000 mL. IV patency established. IV site checked: no pain, redness, or swelling. IV flushed thoroughly post-medication administration. -- 03:06 04/15/24 FABRIZIO Roberts R.N. 02:56 04/15/24. 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 (to [facility] [employer] -- 03:04/15/24 FABRIZIO Roberts R.N.Correction -- 03:04/15/24 FABRIZIO Roberts R.N. 02:56 04/15/24. Patient transported by stretcher with [employer]. (to [employer] -- 03:04/15/24 FABRIZIO Roberts R.N. 03:01 04/15/24. Patient transported to radiology. -- 03:04/15 (more content not included)... Normal [facility] ED ORDER SHEET (CPOE ONLY)on 04-15-2024 ED ORDER SHEET (CPOE ONLY) Order Sheet Order Sheet [address] [place] [address] [id number] 04/14/2024 Patient: MELISSA KAUR Sex: Female : 1995 Age: 29y MEASUREMENTS: Wt: 77.1 kg ALLERGIES: Reglan, Seroquel, Zofran, Zoloft MEDICATION/IV/DRIP/FLUI D ORDERS Order Description Priority Entered Acknowledged Completed IV NS 0.9 %1000 mL at 999 00:22 04/15/2024 00:54 01:23 mL/hr (NOW x1) Milly Ji D.O. 04/15/2024 04/15/2024 Gely Patterson, R.N. LAB ORDERS Order Description Priority Entered Acknowledged Collected Completed CBC w Diff Stat Stat 00:22 04/15/2024 00:30 04/15/2024 01:19 04/15/2024 Viola Hansen R.N. Seth Lapp R.N. CMP Stat Stat 00:22 04/15/2024 00:30 04/15/2024 01:19 04/15/2024 Viola Hansen R.N. Seth Lapp, R.NJuno Urinalysis Stat Stat 00:22 04/15/2024 00:30 04/15/2024 02:17 04/15/2024 Viola Hansen R.N. Anne Rutt, R.N. HCG, Qual Serum Stat Stat 00:23 04/15/2024 00:30 04/15/2024 01:19 04/15/2024 1 of 2 Order Sheet Viola Hansen R.N. Seth Lapp, R.NJuno HCG, Quant Serum Stat Stat 02:17 04/15/2024 02:17 04/15/2024 02:21 04/15/2024 Viola Hansen R.N. Seth Lapp R.N. quantitative hcg as 05:03 04/15/2024 05:24 04/15/2024 outpatient on 04/17/2024. Viola Hansen R.N. results to [facility] DIAGNOSTIC STUDY ORDERS Order Description Priority Entered Acknowledged Completed CT ABD/PEL w Cont Stat Stat 00:23 04/15/2024 Cancelled: Wrong Order Milly Ji D.O. 02:14 EST Milly Ji D.O. Order Comments: 00:23 04/15/2024: Status: Not . Milly Ji D.O. Reason for Study: Abdominal Pain US OB<14WK Single Gestation Stat 02:15 04/15/2024 02:17 03:05 Stat Milly Ji D.O. 04/15/2024 04/15/2024 Althea Roberts R.N. Reason for Study: Possible Ectopic STAFF ORDERS Order Description Priority Entered Acknowledged Collected Completed IV Saline Lock 00:22 04/15/2024 00:30 04/15/2024 01:19 04/15/2024 Viola Hansen R.N. Seth Lapp, R.N. Vital Signs every 30 00:22 04/15/2024 00:30 04/15/2024 01:19 04/15/2024 minutes Viola Hansen R.N. Seth Lapp RMegan [Electronically signed by Milly Ji D.O. (04/15/2024 09:07 EST)] 2 of 2 Normal [facility] ED PHYSICIAN CLINICAL REPORT on 04-15-2024 ED PHYSICIAN CLINICAL REPORT Narrative Physician Clinical [address] [address] [id number] 04/14/2024 Patient: MELISSA KAUR Sex: Female : 1995 Age: 29y Disposition: Discharge to Home Disposition Decision Time: 05:14 04/15/2024 Departure Time: 05:20 04/15/2024 Measurements Wt: 77.1 kg Initial Vital Sign Measured Time BP MAP HR RR O2Sat ETCO2 Temp Pain GCS RTS 21:59 04/14/2024 144/92 109 108 16 97% 98.5 F 6 Time Seen: 23:54 04/14/2024. Arrived- By private vehicle. Historian- patient. HISTORY OF PRESENT ILLNESS Chief Complaint: ABDOMINAL PAIN. It is described as cramping and it is described as located in the left lower quadrant and radiating to the right lower quadrant of the abdomen. This started yesterday Patient concerns that she may be . Took a home test which was questionably positive. Last menstrual period was March 13, 2024. Denies any vaginal bleeding. and is still present (worse). At its maximum, severity described as 5 / 10. When seen in the E.D., severity described as 5 / 10. The patient has had nausea. No loss of appetite, vomiting or diarrhea. No recent travel. Similar symptoms previously. None. Recent medical care: Not recently seen/assessed. 1 of 14 Narrative REVIEW OF SYSTEMS RESPIRATORY: No difficulty breathing. SKIN: No skin rash. EYES: No blurred vision. THROAT: No sore throat. NEUROLOGICAL: No headache. : No difficulty with urination, pain with urination, urinary frequency or abnormal bleeding. Currently : LNMP:mar 13, 2024 confirmed with home test. GI: No constipation or black stools. MUSCULOSKELETAL: No joint pain or back pain. CVS: No chest pain. Status: Not . PAST HISTORY See nurses notes. Diabetes mellitus. Miscarriage in 2018. Asthma. Bipolar disorder. Anxiety disorder Asthma Bipolar Disorder Depression Surgeries: Cholecystectomy. Dilatation and Curettage. Surgeries: Cholecystectomy Medications: unable to obtain home medications Allergies: Reglan Seroquel Zofran Zoloft SOCIAL HISTORY Light tobacco smoker- less than 1/2 a pack per day. No alcohol use or drug use. ADDITIONAL NOTES 2 of 14 Narrative The nursing notes have been reviewed. PHYSICAL EXAM Appearance: Alert. Oriented X3. No acute distress. Eyes: Pupils equal, round and reactive to light. ENT: Ears normal. Nose normal. Pharynx normal. Neck: Normal inspection. Neck supple. CVS: Normal heart rate and rhythm. Heart sounds normal. Pulses normal. Respiratory: No respiratory distress. Breath sounds normal. Chest nontender. Abdomen: Soft. Moderate tenderness in the left lower quadrant with guarding present. No rebound tenderness. Moderate guarding present in the left lower quadrant. No rebound or rigidity. Abnormal bowel sounds: hyperactive. No organomegaly. No mass. Obese. No rebound tenderness. Back: Normal inspection. Skin: Skin warm and dry. Normal skin color. No rash. Extremities: Extremities exhibit normal ROM. No lower extremity edema. Neuro: Oriented X 3. No motor deficit. No sensory deficit. LABS, X-RAYS, AND EKG Pelvic Sonogram: Normal study. Uterus normal. Adnexa normal. No intrauterine . Very small nabothian cyst in the lower uterine segment. No ovarian torsion. No features of ectopic . The study was interpreted by the radiologist. Interpretation time: 04:54 04/15/2024. Laboratory Tests: CBC + DIFF Final JACK: 04/15/2024 01:19:00 EST MsgRcvd: 04/15/2024 01:39 EST Lab Test Result Reference Status Received Comments 04/15/2024 01:39 CBC-COMPLETE CBC + DIFF Final EST BLOOD COUNT 04/15/2024 01:39 WBC 4.5 x 10/UL 4.5 - 10.8 Final EST 3 of 14 Narrative 04/15/2024 01:39 RBC 5.24 x 10/UL 4.10 - 5.30 Final EST 04/15/2024 01:39 HEMOGLOBIN 15.2 g/dl 12.0 - 16.0 Final EST 04/15/2024 01:39 HEMATOCRIT 44.1 % 34.0 - 46.0 Final EST 04/15/2024 01:39 MCV 84 fl 80 - 99 Final EST 04/15/2024 01:39 MCH 29 pg 27 - 33 Final EST 04/15/2024 01:39 MCHC 34 X10 3 32 - 36 Final EST 04/15/2024 01:39 RDW/CV 12.7 % 12.0 - 15.6 Final EST 04/15/2024 01:39 PLATELET 283 x10/UL 150 - 450 Final EST 04/15/2024 01:39 AUTOMATED MPV 7.1 fl 6.6 - 10.5 Final EST DIFFERENTIAL 04/15/2024 01:39 NEUT % 47.9 % 46.0 - 76.0 Final EST 04/15/2024 01:39 LYMPH % 38.8 % 20.0 - 45.0 Final EST 10.7 % 04/15/2024 01:39 MONOS % 0.0 - 10.0 Final Above high normal EST 04/15/2024 01:39 EO % 2.4 % 0.0 - 7.0 Final EST 04/15/2024 01:39 BASO % 0.3 % 0.0 - 2.0 Final EST 4 of 14 Narrative 04/15/2024 01:39 Lymph # 1.74 x10/UL 0.80 - 2.80 Final EST 04/15/2024 01:39 Neut # 2.14 x10/UL 1.50 - 7.10 Final EST 04/15/2024 01:39 Juncos # 0. (more content not included)... Normal [facility] ED SUPER BILLon 04-15-2024 [facility] [address] [place] [address] [id number] 04/14/2024 Patient: MELISSA KAUR Sex: Female : 1995 Age: 29y Item Facility Professional Category Description Code Code Quantity Fee Total Drugs Normal Saline 812729 1 $0.00 $0.00 1000cc (640498) Nurse/E/M EMERGENCY 479090 1 $0.00 $0.00 DEPARTMENT VISIT HIGH/URGENT SEVERITY (03320-37) Nurse/IV/IM/Infusions Hydration initial 075529 1 $0.00 $0.00 (91970) Grand Total $0.00 Providers Milly Ji D.O. Chief Complaint ABDOMINAL PAIN. 1 of 2 [facility] Principal Diagnosis First trimester ; positive test in emergency department. Ultrasound was performed but could not determine the location of the . ICD-10 Codes Z34.91: Encounter for supervision of normal , unspecified, first trimester Z3A.00: Weeks of gestation of not specified 2 of 2 Normal [facility] ED VISIT SUMMARYon ED VISIT SUMMARY Visit Overview Visit Overview [address] [address] [id number] 04/14/2024 Patient: MELISSA KAUR Sex: Female : 1995 Age: 29y 04/15/2024 09:07 AM EST ED Arrival:21:38 04/14/2024 EST Status: Recent Travel:no Language:eng Adv Directive:No Isolation Status: Ethnicity:N Fall Risk:no risk Infectious Disease Exposure:no Measurements:170.0 lb / 77.1 kg Self-Harm Status:risk Sepsis Screen:negative Chief Complaint:ABDOMINAL PAIN and NAUSEA ALLERGIES Reglan Seroquel Zofran Zoloft HOME MEDICATIONS Unable To Obtain PAST MEDICAL HISTORY / PROBLEMS Anxiety disorder 1 of 3 Visit Overview Asthma Bipolar disorder Depression Diabetes mellitus See nurses notes PAST SURGICAL HISTORY Cholecystectomy Dilatation and Curettage SOCIAL HISTORY Smoking status: Yes Alcohol use: No Drug use: No ED COURSE MEDICATIONS GIVEN IN EMERGENCY DEPARTMENT 01:22 04/15/24 IV NS 0.9 % 1000 mL 999 mL/hr IV SITE INFORMATION INTAKE OUTPUT REASSESMENT (most recent) 00:12 04/15/24. Ambulatory to room. ( cough for several days, slightly SOB, cramping lower abd pain.). GENERAL / NEURO / PSYCH: Alert. Oriented X 4. Appears in no acute distress. RESPIRATORY: Respirations not labored. ( cough, slighly SOB). CVS: Normal sinus rhythm noted. Capillary refill less than 2 seconds. GI / : Abdominal tenderness in the right lower quadrant, suprapubic area and left lower quadrant (cramping. pt states she is late on her period). VITAL SIGNS First Vitals Last Vitals Temp 21:59 04/14/24 98.5 F Temp 04:59 04/15/24 2 of 3 Visit Overview First Vitals Last Vitals BP 21:59 04/14/24 144/92 BP 04:59 04/15/24 140/85 HR 21:59 04/14/24 108 HR 04:59 04/15/24 99 RR 21:59 04/14/24 16 RR 04:59 04/15/24 16 O2 Sat 21:59 04/14/24 97% O2 Sat 04:59 04/15/24 96% RA Pain 21:59 04/14/24 6 Pain 04:59 04/15/24 0 ETCO2 21:59 04/14/24 ETCO2 04:59 04/15/24 GCS 21:59 04/14/24 GCS 04:59 04/15/24 RTS 21:59 04/14/24 RTS 04:59 04/15/24 PROCEDURES NURSING INTERVENTIONS LABS / STUDIES LABS / STUDIES ORDERED CBC w Diff CMP HCG, Qual Serum HCG, Quant Serum quantitative hcg as outpatient on 04/17/2024. [facility] to [facility] Urinalysis US OB<14WK Single Gestation CLINICAL IMPRESSION FIRST TRIMESTER ; POSITIVE TEST IN EMERGENCY DEPARTMENT. ULTRASOUND WAS PERFORMED BUT COULD NOT DETERMINE THE LOCATION OF THE 3 of 3 Normal [facility] ED VITALS FLOW SHEETon 04-15 ED VITALS FLOW SHEET Vitals Vital Sign Flow Sheet [facility] [address] [place] [address] [id number] 04/14/2024 Patient: MELISSA KAUR Sex: Female : 1995 Age: 29y Measurements Wt: 77.1 kg Measured Time BP MAP HR RR O2Sat ETCO2 Temp Pain GCS RTS 04:59 04/15/2024 140/85 103 99 16 96% RA 0 00:58 04/15/2024 105 96% 00:54 04/15/2024 141/94 109 101 00:53 04/15/2024 111 96% 00:48 04/15/2024 101 96% 00:43 04/15/2024 103 96% 00:38 04/15/2024 100 95% 00:33 04/15/2024 103 95% 00:28 04/15/2024 102 97% 00:24 04/15/2024 171/106 129 94 00:23 04/15/2024 97 96% 00:18 04/15/2024 95 96% 00:13 04/15/2024 99 96% 00:08 04/15/2024 106 97% 00:03 04/15/2024 105 99% 1 of 2 Vitals Measured Time BP MAP HR RR O2Sat ETCO2 Temp Pain GCS RTS 23:58 04/14/2024 102 98% 23:54 04/14/2024 151/97 119 100 23:53 04/14/2024 101 99% 21:59 04/14/2024 144/92 109 108 16 97% 98.5 F 6 2 of 2 Normal [facility] PREG SERUM QUANTon HCG QUANTITATIVE 433 mIU/mL High 0 - 6 [facility] Comment on above: Result Comment: Refe rence Range: Male: <5 Female: Non: <5 1 - 7 days : 5 - 50 1 - 2 weeks: 50 - 500 2 - 3 weeks: 100 - 5000 3 - 4 weeks: 500 - 10,000 4 - 5 weeks: 1000 - 50,000 5 - 6 weeks: 10,000 - 100,000 6 - 8 weeks: 15,000 - 200,000 2 - 3 months: 10,000 - 100,000 2ND TRIMESTER 3000-50,000 3RD TRIMESTER 1000-50,000 Performed By: #### 2 [id number] ####[facility],[address] [place] [address] SERUM QUALon 04-15 EXTERNAL QC DONE? YES Normal [facility] Comment on above: Performed By: #### 2 [id number] #### [facility],[address] [place] [address] INTERNAL QC PASS Normal [facility] Comment on above: Performed By: #### 2 [id number] #### [facility],[address] [place] [address] SER Positive Normal NEGATIVE [facility] Comment on above: Performed By: #### 2 29514 #### [facility],[address] [place], [place] [phone] URINALYSISon 04-15-2024 Amorphous NONE Normal [facility] Comment on above: Performed By: #### 2 [id number] #### [facility],[address] [place] [address] Bacteria TRACE Normal [facility] Comment on above: Performed By: #### 2 [id number] #### [facility],[address] [place] [address] [phone] Bilirubin Ql (U) Negative Normal NORMAL: NEGATIVE [facility] Comment on above: Performed By: #### 2 [id number] #### [facility],[address] [place] [address] [phone] Casts NONE Normal [facility] Comment on above: Performed By: #### 2 [id number] #### [facility],[address] [place] [address] Clarity (U) clear Normal NORMAL: CLEAR [facility] Comment on above: Performed By: #### 2 [id number] #### [facility],[address] [place] [address] [phone] Color (U) yellow Normal NORMAL: YELLOW [facility] Comment on above: Performed By: #### 2 [id number] #### [facility],[address] [place], [place] [phone] Crystals LM Nom (Urine sed) NONE Normal [facility] Comment on above: Performed By: #### 2 [id number] #### [facility],[address] [place], [place] [phone] Epi Cells MODERATE Normal [facility] Comment on above: Performed By: #### 2 63476 #### [facility],[address] [place], [place] [phone] Glucose Ql (U) 1000 Abnormal NORMAL: NORMAL [facility] Comment on above: Performed By: #### 2 [id number] #### [facility],[address] [place] [address] [phone] Hemoglobin Ql (U) Negative Normal NORMAL: NEGATIVE [facility] Comment on above: Performed By: #### 2 16403 #### [facility],[address] [place] [address] [phone] Ketone 150 Abnormal NORMAL: NEGATIVE [facility] Comment on above: Performed By: #### 2 [id number] #### [facility],[address] [place] [address] [phone] Leukocytes 25 Abnormal NORMAL: NEGATIVE [facility] Comment on above: Performed By: #### 2 39205 #### [facility],[address] [place] [address] [phone] Mucous NONE Normal [facility] Comment on above: Performed By: #### 2 22106 #### [facility],[address] [place] [address] [phone] Nitrite Ql (U) Negative Normal NORMAL: NEGATIVE [facility] Comment on above: Performed By: #### 2 69988 #### [facility],[address] [place] [address] pH (U) 5 [pH] Normal NORMAL: 5.0-8.0 [facility] Comment on above: Performed By: #### 2 [id number] #### [facility],[address] [place] [address] Protein Ql (U) 15 Abnormal NORMAL: NEGATIVE [facility] Comment on above: Performed By: #### 2 [id number] #### [facility],[address] [place] [address] Rbc 0-5 Normal 0-3/hpf [facility] Comment on above: Performed By: #### 2 06650 #### [facility],[address] [place] [address] Sp [place] 1.025 Normal NORMAL: 1.010-1.030 [facility] Comment on above: Performed By: #### 2 [id number] #### [facility],[address] [place] [address] Specimen Type R Normal [facility] Comment on above: Performed By: #### 2 01221 #### [facility],[address] [place] [address] Urinalysis dipstick W Reflex Microscopic panel (U) SEE BELOW Normal [facility] Comment on above: Result Comment: MICR OSCOPIC Performed By: #### 2 [id number] #### [facility],[address] [place] [address] Urobilinog NORM Normal NORMAL: NORMAL [facility] Comment on above: Performed By: #### 2 01763 #### [facility],[address] [place] [address] Wbc 1-5 Normal 0-5/hpf [facility] Comment on above: Performed By: #### 2 81539 #### [facility],[address] [place] [address] [id number] Yeast NONE Normal [facility] Comment on above: Performed By: #### 2 [id number] #### [facility],[address] [place], [place] [id number] US OB ENDO VAGINALon 024 US OB ENDO VAGINAL [place] [address] Patient: MELISSA KAUR Phone#: : 1995 Age: 29 Gender: F Pt. Type: ER Account: [id number] Location: 2 Ordering: MILLY JI Exam Date: 04/15/2024/2:54 Family Phys: JAMARI BYRNE Charge Code: 466225 Physician: Cecil Order #: [id number] Dose#: PROCEDURE: OB INITIAL <14 WEEKS ULTRASOUND, TRANSABDOMINAL ENDOVAGINAL COMPARISON: None this . INDICATIONS: Possible ectpoic TECHNIQUE: Transabdominal and endovaginal pelvic ultrasound examinations were performed. FINDINGS: GESTATIONAL SAC: Not visualized UTERUS: Normal. Uterus measures 9.1 x 5.8 x 6.8 cm ADNEXAE/OVARIES: Normal. Left ovary measures 2.9 x 1.5 x 2.6 cm. Right ovary measures 3.2 x 2.6 x 3.9 cm CUL-DE-SAC: Normal. CLINICAL AGE: 4 weeks 5 days, estimated date of delivery 12/18/2024. OTHER: Negative. CONCLUSION: 1. No intrauterine or extrauterine gestation identified. This indicates a gestation of indeterminate location. At the current beta HCG level it is too low to reliably detect gestational sac by ultrasound. Recommend correlation with serial beta HCG and follow-up ultrasound if clinically indicated. Dictated by: Kandace Nobles MD on 04/15/2024 at 8:54 Approved by: Kandace Nobles MD on 04/15/2024 at 9:02 Normal [facility] US OB INITIAL< 14 WEEKS; 1st GESTATIONon 04-15-2024 US OB INITIAL< 14 WEEKS; 1st GESTATION [place] [address] Patient: MELISSA KAUR Phone#: : 1995 Age: 29 Gender: F Pt. Type: ER Account: [id number] Location: [facility] Ordering: MILLY JI Exam Date: 04/15/2024/2:54 Family Phys: JAMARI LJuno CHAVEZ Charge Code: 382283 Physician: Cecil Order #: [id number] Dose#: PROCEDURE: OB INITIAL <14 WEEKS ULTRASOUND, TRANSABDOMINAL ENDOVAGINAL COMPARISON: None this . INDICATIONS: Possible ectpoic TECHNIQUE: Transabdominal and endovaginal pelvic ultrasound examinations were performed. FINDINGS: GESTATIONAL SAC: Not visualized UTERUS: Normal. Uterus measures 9.1 x 5.8 x 6.8 cm ADNEXAE/OVARIES: Normal. Left ovary measures 2.9 x 1.5 x 2.6 cm. Right ovary measures 3.2 x 2.6 x 3.9 cm CUL-DE-SAC: Normal. CLINICAL AGE: 4 weeks 5 days, estimated date of delivery 12/18/2024. OTHER: Negative. CONCLUSION: 1. No intrauterine or extrauterine gestation identified. This indicates a gestation of indeterminate location. At the current beta HCG level it is too low to reliably detect gestational sac by ultrasound. Recommend correlation with serial beta HCG and follow-up ultrasound if clinically indicated. Dictated by: Kandace Nobles MD on 04/15/2024 at 8:54 Approved by: Kandace Nobles MD on 04/15/2024 at 9:02 Normal [facility] 04-14-2024 [facility] Normal [facility] Visit Reporton 0 02-26-2024 Urgent Care Visit Report [facility] [address], [address] [place], [place] [id number] OFFICE VISIT Date of Service: 02/26/24 MR#: [id number] Acct: [id number] Name: MELISSA KAUR Rep #: [id number] : 1995 Provider: BUDDY Henderson Age/Sex: 29/F Location: BMS.NOW Status: Signed Intake Vital Signs 02/26/24 13:36 Height 5 ft 2 in Weight: 171 lb 6 oz BMI 31.3 BP 128/68 H Blood Pressure Location Lt brachial Position Sitting Respiration 17 Pulse 84 Pulse Source NIBP Temp 98.2 F Temp Source Temporal Pulse Oximetry (%) 98 Oxygen Delivery Method room air Intake Visit Reasons: YEAST INFECTION Chief Complaint: vaginal itching, discharge Cell Plasterer Required: No Is patient in pain?: No Allergies No Known Allergies Allergy (Verified 02/26/24 13:44) Medications ???Medication ???Instructions ???Recorded ???Confirmed ???Type ibuprofen 600 mg tablet 600 mg PO Q6H PRN Pain #60 TABLETS 01/22/17 02/26/24 Rx glipizide 5 mg tablet 5 mg PO BID 01/23/18 02/26/24 History metformin 1,000 mg tablet 500 mg PO BIDCM 01/23/18 02/26/24 History buspirone 15 mg tablet 15 mg PO QDAY 02/26/24 02/26/24 History fluconazole 150 mg tablet 150 mg PO Q3D 2 doses #2 tabs 02/26/24 02/26/24 Rx fluoxetine 40 mg capsule 40 mg PO QDAY 02/26/24 02/26/24 History insulin glargine 100 unit/mL (3 unit subcut 02/26/24 02/26/24 History mL) subcutaneous pen (Lantus Solostar U-100 Insulin) insulin lispro 100 unit/mL subcut 02/26/24 02/26/24 History subcutaneous pen (Humalog KwikPen (U-100) Insulin) lumateperone 21 mg capsule 21 mg PO QDAY 02/26/24 02/26/24 History (Caplyta) Is last menstrual period known: No Post menopausal: No Patient : No Have you fallen in the past year?: No Nurse's Note: vaginal itching, discharge, tenderness x 1 week. hx frequent yeast infections and feels same. denies abd pain, fevers, odor, new partners. PFSH Medical History Seizures Asthma Osteoarthritis Diabetes Surgical History History of dilation and curettage History of oral surgery History of cholecystectomy Family History Other Heart disease Hyperlipemia Social History Smoking Status: Current every day smoker alcohol intake: never substance use type: does not use HPI HPI Chief Complaint: vaginal itching, discharge Details: MELISSA KAUR, is a 29 F who presents to the office today for complaint of vaginal yeast infection. Patient states that she has had yeast infections in the past with similar symptoms including vaginal itching and dryness. No dysuria or hematuria. No pelvic or abdominal pain. No fever, chills, sweats. No nausea, vomiting, diarrhea. No other associated symptoms or alleviating/aggravating factors. ROS Const Constitutional: No other (6 system ROS completed with pertinent findings in the HPI otherwise normal.) Exam Const General: cooperative and healthy appearing Resp Effort Inspection: normal respiratory effort Auscultation: Bilateral: Clear to Auscultation Cardio Rate: regular rate Rhythm: regular rhythm GI Auscultation: normal bowel sounds General: No CVA tenderness Psych Appearance: grossly normal Mental Status: mental status grossly normal Coding Level of Care Code Off vis,new,level 3 Diagnoses Yeast vaginitis B37.31 Assessment and Plan Assessment and Plan (1) Yeast vaginitis: Status: Acute Plan: Diflucan as prescribed today. Encouraged to get plenty of rest, drink lots of clear liquids, and use Tylenol or Ibuprofen (unless contraindicated) for fever and comfort. Patient also educated on other symptomatic management techniques. To be seen in 7-10 days if no improvement; sooner if worsening of symptoms. Patient advised of potential red flags and when appropriate to report to the ED. Patient verbalized understanding and agreement with all the above. Medications: New fluconazole may repeat second dose 72 hrs after first dose if symptoms persist 150 mg PO Q3D 2 doses 2 tabs 0RF Discontinued cephalexin Discontinued Reason: Order Completed 500 mg PO BID 10 caps 0RF Clinical Quality Measures Falls Risk Screening/Assistive Devices Have you fallen in the past year?: No 02/26/24 1415 Date Shreyas Samayoa Signature: Date (if applicable) CC: Normal [facility] Basic metabolic 2000 panelon 12-16-2023 Anion gap [Moles/Vol] 14 mmol/L Normal 10-20 [facility] Comment on above: Performed By: #### 2 4321-2 #### JACQUELYN LOPEZ ([id number]) [facility] [address] [place] [address] Calcium [Mass/Vol] 9.3 mg/dL Normal 8.6-10.3 [facility] Comment on above: Performed By: #### 2 4321-2 #### JACQUELYN LOPEZ ([id number]) [facility]) [address] [place] [address] 67503 Chloride [Moles/Vol] 101 mmol/L Normal 98-107 [facility] Comment on above: Performed By: #### 2 4321-2 #### JACQUELYN LOPEZ ([id number]) [facility]) [address] [place] [address] 23607 CO2 [Moles/Vol] 26 mmol/L Normal 21-32 [facility] Comment on above: Performed By: #### 2 4321-2 #### JACQUELYN LOPEZ ([id number]) [facility]) [address] [place] [address] 93688 Creatinine [Mass/Vol] 0.54 mg/dL Normal 0.50-1.05 [facility] Comment on above: Performed By: #### 2 4321-2 #### JACQUELYN LOPEZ ([id number]) [facility]) [address] [place] [address] 15009 GFR/1.73 sq M.predicted MDRD (S/P/Bld) [Vol rate/Area] mL/min/{1.73_m2} Normal >60 [facility] Comment on above: Result Comment: Calc ulations of estimated GFR are performed using the 2020 CKD-EPI Study Refit equation without the race variable for the IDMS-Traceable creatinine methods. https://jasn.asnjournals.org/content/early/ASN.102453 0447 Performed By: #### 2 4321-2 #### JACQUELYN LOPEZ ([id number]) [facility]) [address] [place] [address] 45645 Glucose [Mass/Vol] 207 mg/dL High 74-99 [facility] Comment on above: Performed By: #### 2 4321-2 #### JACQUELYN LOPEZ ([id number]) [facility]) [address] [place] [address] 11138 Potassium [Moles/Vol] 3.7 mmol/L Normal 3.5-5.3 [facility] Comment on above: Performed By: #### 2 4321-2 #### JACQUELYN LOPEZ ([id number]) [facility]) [address] [place] [address] 68415 Sodium [Moles/Vol] 137 mmol/L Normal 136-145 [facility] Comment on above: Performed By: #### 2 4321-2 #### JACQUELYN LOPEZ ([id number]) [facility]) [address] [place] [address] 43787 Urea nitrogen [Mass/Vol] 7 mg/dL Normal 6-23 [facility] Comment on above: Performed By: #### 2 4321-2 #### JACQUELYN LOPEZ ([id number]) [facility]) [address] [place] [address] 47146 HbA1c (Bld) [Mass fraction]o n 12-16-2023 Average glucose Estimated from glycated hemoglobin (Bld) [Mass/Vol] 246 mg/dL Normal Not Established [facility] Comment on above: Order Comment: Diagn osis of Diabetes-Adults Non-Diabetic: < or = 5.6% Increased risk for developing diabetes: 5.7-6.4% Diagnostic of diabetes: > or = 6.5% Performed By: #### 4 548-4 #### JACQUELYN LOPEZ ([id number]) [facility]) [facility] [place] [address] Hemoglobin A1c/Hemoglobin.to bg 12-16-2023 HbA1c (Bld) [Mass fraction] 10.2 % High see below [facility] Comment on above: Order Comment: Diagn osis of Diabetes-Adults Non-Diabetic: < or = 5.6% Increased risk for developing diabetes: 5.7-6.4% Diagnostic of diabetes: > or = 6.5% Performed By: #### 4 548-4 #### JACQUELYN LOPEZ ([id number]) [facility]) [address] [place] [address] 06588 Basic metabolic 2000 panelon 09-15-2023 Anion gap [Moles/Vol] 13 mmol/L Normal 10-20 [facility] Comment on above: Performed By: #### 2 4321-2 #### JACQUELYN LOPEZ ([id number]) [facility]) [address] [place] [address] 41362 Calcium [Mass/Vol] 9.9 mg/dL Normal 8.6-10.3 [facility] Comment on above: Performed By: #### 2 4321-2 #### JACQUELYN LOPEZ ([id number]) [facility]) [facility] [place] [address] Chloride [Moles/Vol] 99 mmol/L Normal 98-107 [facility] Comment on above: Performed By: #### 2 4321-2 #### JACQUELYN LOPEZ ([id number]) [facility]) [address] [place] [address] 37069 CO2 [Moles/Vol] 28 mmol/L Normal 21-32 [facility] Comment on above: Performed By: #### 2 4321-2 #### JACQUELYN LOPEZ ([id number]) [facility] [address] [place] [address] 08180 Creatinine [Mass/Vol] 0.57 mg/dL Normal 0.50-1.05 [facility] Comment on above: Performed By: #### 2 4321-2 #### JACQUELYN LOPEZ ([id number]) [facility]) [address] [place] [address] 57003 GFR/1.73 sq M.predicted MDRD (S/P/Bld) [Vol rate/Area] mL/min/{1.73_m2} Normal >60 [facility] Comment on above: Result Comment: Calc ulations of estimated GFR are performed using the 2020 CKD-EPI Study Refit equation without the race variable for the IDMS-Traceable creatinine methods. https://jasn.asnjournals.org/content/early/ASN.758336 3867 Performed By: #### 2 4321-2 #### JACQUELYN LOPEZ ([id number]) [facility]) [address] [place] [address] 14569 Glucose [Mass/Vol] 208 mg/dL High 74-99 [facility] Comment on above: Performed By: #### 2 4321-2 #### JACQUELYN LOPEZ ([id number]) [facility]) [address] [place] [address] 39259 Potassium [Moles/Vol] 4.0 mmol/L Normal 3.5-5.3 [facility] Comment on above: Performed By: #### 2 4321-2 #### JACQUELYN LOPEZ ([id number]) [facility]) [address] [place] [address] 21984 Sodium [Moles/Vol] 136 mmol/L Normal 136-145 [facility] Comment on above: Performed By: #### 2 4321-2 #### JACQUELYN LOPEZ ([id number]) [facility]) [address] [place] [address] 01215 Urea nitrogen [Mass/Vol] 10 mg/dL Normal 6-23 [facility] Comment on above: Performed By: #### 2 4321-2 #### JACQUELYN LOPEZ ([id number]) [facility] [address] [place] [address] 55828 HbA1c (Bld) [Mass fraction]o n 09-15-2023 Average glucose Estimated from glycated hemoglobin (Bld) [Mass/Vol] 226 mg/dL Normal Not Established [facility] Comment on above: Order Comment: Diagn osis of Diabetes-Adults Non-Diabetic: < or = 5.6% Increased risk for developing diabetes: 5.7-6.4% Diagnostic of diabetes: > or = 6.5% Monitoring of Diabetes Age (y)....................... Therapeutic Goal (%) Adults: >18.........................<7.0 Pediatrics: 13-18...................<7.5 Pediatrics: 7-12....................<8.0 Pediatrics: 0-6..................... 7.5-8.5 [place] [employer]. Diabetes Care 33(S1), Jun 2009 Performed By: #### 4 548-4 #### VALLADARES JOHN ([id number]) [facility]) [address] [place] [address] Hemoglobin A1c/Hemoglobin.to bg 09-15-2023 HbA1c (Bld) [Mass fraction] 9.5 % High see below [facility] Comment on above: Order Comment: Diagn osis of Diabetes-Adults Non-Diabetic: < or = 5.6% Increased risk for developing diabetes: 5.7-6.4% Diagnostic of diabetes: > or = 6.5% Monitoring of Diabetes Age (y)....................... Therapeutic Goal (%) Adults: >18.........................<7.0 Pediatrics: 13-18...................<7.5 Pediatrics: 7-12....................<8.0 Pediatrics: 0-6..................... 7.5-8.5 [place] [employer]. Diabetes Care 33(S1), Jun 2009 Performed By: #### 4 548-4 #### VALLADARES JOHN ([id number]) [facility]) [address] [place] [address]26 BASIC METABOLIC PANELon 06-2 Anion gap [Moles/Vol] 13 mmol/L Normal 10 - 20 [facility] Comment on above: Performed By: #### B MP #### [address] [address] Calcium [Mass/Vol] 9.2 mg/dL Normal 8.6 - 10.3 [facility] Comment on above: Performed By: #### B MP #### [address] [address] Chloride [Moles/Vol] 101 mmol/L Normal 98 - 107 [facility] Comment on above: Performed By: #### B MP #### [address] [address] Creatinine [Mass/Vol] 0.55 mg/dL Normal 0.50 - 1.05 [facility] Comment on above: Performed By: #### B MP #### [address] [address] eGFR FEMALE >90 Normal >90 [facility] Comment on above: Result Comment: CALC ULATIONS OF ESTIMATED GFR ARE PERFORMED USING THE 2020 CKD-EPI STUDY REFIT EQUATION WITHOUT THE RACE VARIABLE FOR THE IDMS-TRACEABLE CREATININE METHODS. https://jasn.asnjournals.org/content//ASN.617662 2773 Performed By: #### B MP #### [address] [address] Glucose [Mass/Vol] 296 mg/dL High 74 - 99 [facility] Comment on above: Performed By: #### B MP #### [place] [address] HCO3 (Bld) [Moles/Vol] 26 mmol/L Normal 21 - 32 [facility] Comment on above: Performed By: #### B MP #### [address] [address] Potassium [Moles/Vol] 3.8 mmol/L Normal 3.5 - 5.3 [facility] Comment on above: Performed By: #### B MP #### [place] [id number] Sodium [Moles/Vol] 136 mmol/L Normal 136 - 145 [facility] Comment on above: Performed By: #### B MP #### [place] [id number] Urea nitrogen [Mass/Vol] 10 mg/dL Normal 6 - 23 [facility] Comment on above: Performed By: #### B MP #### [place] [address] Lab Specimen Source Normal [facility] Comment on above: Performed By: #### B MP #### [place] [address] Performed By: #### H BA1E #### [place] [id number] HEMOGLOBIN A1Con 12-03-2022 Glucose [Mass/Vol] 209 mg/dL Normal [facility] Comment on above: Performed By: #### H BA1E #### [place] [id number] HbA1c (Bld) [Mass fraction] 8.9 % Abnormal [facility] Comment on above: Result Comment: Diag nosis of Diabetes-Adults Non-Diabetic: < or = 5.6% Increased risk for developing diabetes: 5.7-6.4% Diagnostic of diabetes: > or = 6.5% . Monitoring of Diabetes Age (y) Therapeutic Goal (%) Adults: >18 <7.0 Pediatrics: 13-18 <7.5 7-12 <8.0 0- 6 7.5-8.5 [employer] [employer]. Diabetes Care 33(S1), Jun 2009. Performed By: #### H BA1E #### [address] [address] HCG ( test) Ql (U)o n 08-17-2022 Internal Control Pass [facility] Interpretation and review of laboratory results Normal [facility] POC , Urineon 08-17 HCG ( test) Ql (U) Negative Negative [facility] BASIC METABOLIC PANELon 12 eGFR FEMALE >90 Normal >90 [facility] Comment on above: Result Comment: CALC ULATIONS OF ESTIMATED GFR ARE PERFORMED USING THE 2020 CKD-EPI STUDY REFIT EQUATION WITHOUT THE RACE VARIABLE FOR THE IDMS-TRACEABLE CREATININE METHODS. https://jasn.asnjournals.org/content//ASN.817472 0738 Performed By: #### B MP #### [address] [address] HCO3 (Bld) [Moles/Vol] 24 mmol/L Normal 21 - 32 [facility] Comment on above: Performed By: #### B MP #### [address] [address] Anion gap [Moles/Vol] 14 mmol/L Normal 10 - 20 [facility] Work Phone: Comment on above: Performed By: #### B MP #### [address] [address] Calcium [Mass/Vol] 9.8 mg/dL Normal 8.6 - 10.3 [facility] Work Phone: Comment on above: Performed By: #### B MP #### [address] [address] Chloride [Moles/Vol] 101 mmol/L Normal 98 - 107 [facility] Work Phone: Comment on above: Performed By: #### B MP #### [address] [address] Creatinine [Mass/Vol] 0.58 mg/dL Normal 0.50 - 1.05 [facility] Work Phone: Comment on above: Reference Range: 0.5 0 - 1.05 Performed By: #### B MP #### [address] [address] Glucose [Mass/Vol] 263 mg/dL High 74 - 99 [facility] Work Phone: Comment on above: Performed By: #### B MP #### [address] [address] Potassium [Moles/Vol] 3.5 mmol/L Normal 3.5 - 5.3 [facility] Work Phone: Comment on above: Performed By: #### B MP #### [address] [address] Sodium [Moles/Vol] 135 mmol/L Low 136 - 145 [facility] Work Phone: Comment on above: Performed By: #### B MP #### [address] [address] Urea nitrogen [Mass/Vol] 12 mg/dL Normal 6 - 23 [facility] Work Phone: Comment on above: Performed By: #### B MP #### [address] [address] HEMOGLOBIN A1Con 05-24-2022 Glucose [Mass/Vol] 246 mg/dL Normal [facility] Comment on above: Performed By: #### H BA1E #### [address] [address] HbA1c (Bld) [Mass fraction] 10.2 % Abnormal [facility] Comment on above: Result Comment: Diag nosis of Diabetes-Adults Non-Diabetic: < or = 5.6% Increased risk for developing diabetes: 5.7-6.4% Diagnostic of diabetes: > or = 6.5% . Monitoring of Diabetes Age (y) Therapeutic Goal (%) Adults: >18 <7.0 Pediatrics: 13-18 <7.5 7-12 <8.0 0- 6 7.5-8.5 [employer] [employer]. Diabetes Care 33(S1), Jun 2009. Performed By: #### H BA1E #### [place] [id number] [place] [id number] Hemoglobin A1Con 05-24-2022 Glucose [Mass/Vol] 246 mg/dL [facility] Work Phone: HbA1c (Bld) [Mass fraction] 10.2 % Abnormal [facility] Work Phone: Comment on above: Diagnosis of Diabete s-Adults Non-Diabetic: < or = 5.6% Increased risk for developing diabetes: 5.7-6.4% Diagnostic of diabetes: > or = 6.5%. Monitoring of Diabetes Age (y) Therapeutic Goal (%) Adults: >18 <7.0 Pediatrics: 13-18 <7.5 7-12 <8.0 0- 6 7.5-8.5 [employer] [employer]. Diabetes Care 33(S1), Jun 2009. Laboratory - Chemistry and C hemistry - challengeon 05-24-2022 CO2 [Moles/Vol] 24 mmol/L 21 - 32 [facility] Work Phone: No Panel Informationon 05-24 >90 >90 [facility] Work Phone: Comment on above: CALCULATIONS OF ASCENCION MATED GFR ARE PERFORMED USING THE 2020 CKD-EPI STUDY REFIT EQUATION WITHOUT THE RACE VARIABLE FOR THE IDMS-TRACEABLE CREATININE METHODS.https://jasn.asnjournals.org/content/early/ N.3464918634 Office Visit (Family Medicin e)on 05-24-2022 Follow-up visit Diagnoses/Problems Hyperglycemia due to diabetes mellitus (250.02) (E11.65) Anxiety and depression (300.00,311) (F41.9,F32.A) Bipolar depression (296.50) (F31.9) Orders Hyperglycemia due to diabetes mellitus Start: Pioglitazone HCl - 15 MG Oral Tablet; Take 1 tablet daily Follow-up visit in 3 months Outpatient Follow-up Status: Hold For - Scheduling Requested for: [id number] Hemoglobin A1C; Status:Active; Requested for:22Aug2022; PMH: History of diabetes mellitus Renew: Trulicity 3 MG/0.5ML Subcutaneous Solution Pen-injector; Inject 3 mg weekly Chief Complaint 3 month. History of Present Illness father is Lucia Byrne diabetic Type II dx at age 14 a1c = 10.2 % may 2022 checking blood sugar daily range x 130 per her macine question if this is correct add actos and increase trulicity may 2022 bipolar unalbe to tolerate lithium per dr Jackson with светлана recommend starting caplyta for bipolar asthma 2016 EIA lasta used when chasing after cat which is her supoort animal smokes 1.5 ppd when manic ros no cp Active Problems Anxiety and depression (300.00,311) (F41.9,F32.A) GERD (gastroesophageal reflux disease) (530.81) (K21.9) Hyperglycemia due to diabetes mellitus (250.02) (E11.65) PTSD (post-traumatic stress disorder) (309.81) (F43.10) Screening for cervical cancer (V76.2) (Z12.4) Past Medical History History of Papanicolaou smear (V45.89) (Z98.890) 01/31/2019 History of spontaneous (V13.29) (Z87.59) 02/20/2018 History of Menarche (V21.8) AGE 15 Surgical History History of Cholecystectomy 2014 History of Dilation and curettage Family History Family history of asthma (V17.5) (Z82.5) Family history of diabetes mellitus (V18.0) (Z83.3) Family history of hypertension (V17.49) (Z82.49) FHx: mental illness (V17.0) (Z81.8) Family history of cardiac disorder (V17.49) (Z82.49) Family history of diabetes mellitus (V18.0) (Z83.3) Family history of hypertension (V17.49) (Z82.49) Family history of myocardial infarction (V17.3) (Z82.49) Family history of thyroid disease (V18.19) (Z83.49) Family history of TBI (traumatic brain injury) FHx: mental illness (V17.0) (Z81.8) Family history of diabetes mellitus (V18.0) (Z83.3) Social History Consumes alcohol occasionally (V49.89) (Z78.9) Current smoker (305.1) (F17.200) 1/2 PPD No illicit drug use Sexually active Allergies quetiapine Unknown; Recorded By: Janet Ross; 09/27/2019 1:53:36 PM Reglan Unknown; Recorded By: Janet Ross; 09/27/2019 1:53:36 PM Zofran Unknown; Recorded By: Janet Ross; 09/27/2019 1:53:36 PM Current Meds Medication NameInstructionReason busPIRone HCl - 5 MG Oral TabletTAKE 1 TABLET TWICE DAILY.Anxiety and depression Albuterol Sulfate HFA 108 (90 Base) MCG/ACT Inhalation Aerosol SolutionINHALE 1 TO 2 PUFFS EVERY 6 HOURS NEEDED.Health Maintenance Blood Glucose Test In Vitro StripUSE 1 STRIP DailyPMH: History of diabetes mellitus Fingerstix LancetsCHECK BS ONCE DAILYPMH: History of diabetes mellitus glipiZIDE 5 MG Oral TabletTake 1 tablet twice dailyPMH: History of diabetes mellitus metFORMIN HCl - 1000 MG Oral TabletTAKE 1 TABLET BY MOUTH TWICE DAILYPMH: History of diabetes mellitus Trulicity 1.5 MG/0.5ML Subcutaneous Solution Pen-injectorINJECT 1 UNIT WeeklyPMH: History of diabetes mellitus valACYclovir HCl - 500 MG Oral TabletTAKE 1 TABLET DAILY.PMH: History of herpes simplex infection FLUoxetine HCl - 20 MG Oral CapsuleSocHx: Current smoker Benadryl 25 MG TABS Vitals Vital Signs Recorded: 22Ztd1705 10:15AM Heart Rate94 Jhswgmss610 Vutyaauyv40 Zdmanj844.48 cm Pbwvqw04.64 kg BMI Iembxhfrwr58.92 kg/m2 BSA Calculated1.83 Tobacco Usea) Yes PHQ-2 #1. Over the last 2 weeks have you felt down, depressed or hopeless? (If yes, answer PHQ-9 below)Yes PHQ-2 #2. Over the last 2 weeks have you felt little interest or pleasure in doing things? (If yes, answer PHQ-9 below)Yes Physical Exam General: Alert and oriented, No acute distress. Neck: Supple, Non-tender, No lymphadenopathy, No thyromegaly. Respiratory: Lungs are clear to auscultation, Respirations are non-labored, Breath sounds are equal, Symmetrical chest wall expansion. Cardiovascular: Normal rate, Regular rhythm, No murmur normal cap refill left foot hammertoe 2nd toe. Normal gait. Neurologic: Alert, Oriented, No focal deficits. Cognition and Speech: Oriented, Speech clear and coherent, Functional cognition intact. Psychiatric: Cooperative, Appropriate mood AND affect, Normal judgment. Results/Data Basic Metabolic [id number] 08:34AMRabeJamari iraheta Test NameResultFlagReference Glucose, Svgsz044 mg/dLH74 - 99 Sodium, Lsvcx180 mmol/LL136 - 145 POTASSIUM3.5 mmol/L3.5 - 5.3 Chloride, Zknwa184 mmol/L98 - 107 Bicarbonate, Serum24 mmol/L21 - 32 Anion Gap, Serum14 mmol/L10 - 20 Blood Urea Nitrogen, Serum12 mg/dL6 - 23 CREATININE0.58 mg/dLSee Below Reference (more content not included)... Normal [employer] Tobacco Screening.on 022 Adult depression screening assessment [facility]: Tobacco use status CP a) Yes [facility] [employer] Phone: [facility] Follow-up visit Diagnoses/Problems Hyperglycemia due to diabetes mellitus (250.02) (E11.65) Anxiety and depression (300.00,311) (F41.9,F32.A) Orders Anxiety and depression Follow-up visit in 3 months Outpatient Follow-up Status: Hold For - Scheduling Requested for: [id number] Basic Metabolic Panel; Status:Active; Requested for:[id number]; Anxiety and depression, Hyperglycemia due to diabetes mellitus Hemoglobin A1C; Status:Active; Requested for:57Hvv1975; Health Maintenance Renew: Albuterol Sulfate HFA 108 (90 Base) MCG/ACT Inhalation Aerosol Solution; INHALE 1 TO 2 PUFFS EVERY 6 HOURS NEEDED PMH: History of diabetes mellitus Renew: Trulicity 1.5 MG/0.5ML Subcutaneous Solution Pen-injector; INJECT 1 UNIT Weekly Chief Complaint 3 MO OV DIABETES, NO DATA History of Present Illness father is Lucia Byrne diabetic Type II dx at age 14 checking blood sugardaily range 80 to 120 mid am has 80 and feels shakey am intake is min to nil feels appetite has increased will bump up trulicity anxiety/bipolar depression/ had a manic episode and ended up going to court prozac was decreased and started lithium per dr Jackson with светлана asthma albuterol last used 2 x per month EIA smokes 1/2 ppd to 1 ppd ros no cp slight cough from smoking last eye appt over 2 year Active Problems Anxiety and depression (300.00,311) (F41.9,F32.A) GERD (gastroesophageal reflux disease) (530.81) (K21.9) HSV (herpes simplex virus) infection (054.9) (B00.9) PTSD (post-traumatic stress disorder) (309.81) (F43.10) Screening for cervical cancer (V76.2) (Z12.4) Seizure-like activity (780.39) (R56.9) Past Medical History History of Papanicolaou smear (V45.89) (Z98.890) 01/31/2019 History of spontaneous (V13.29) (Z87.59) 02/20/2018 History of Menarche (V21.8) AGE 15 Surgical History History of Cholecystectomy 2014 History of Dilation and curettage Family History Family history of asthma (V17.5) (Z82.5) Family history of diabetes mellitus (V18.0) (Z83.3) Family history of hypertension (V17.49) (Z82.49) FHx: mental illness (V17.0) (Z81.8) Family history of cardiac disorder (V17.49) (Z82.49) Family history of diabetes mellitus (V18.0) (Z83.3) Family history of hypertension (V17.49) (Z82.49) Family history of myocardial infarction (V17.3) (Z82.49) Family history of thyroid disease (V18.19) (Z83.49) Family history of TBI (traumatic brain injury) FHx: mental illness (V17.0) (Z81.8) Family history of diabetes mellitus (V18.0) (Z83.3) Social History Consumes alcohol occasionally (V49.89) (Z78.9) Current smoker (305.1) (F17.200) 1/2 PPD No illicit drug use Sexually active Allergies quetiapine Unknown; Recorded By: Janet Ross; 09/27/2019 1:53:36 PM Regmary grace Unknown; Recorded By: Janet Ross; 09/27/2019 1:53:36 PM Levy Unknown; Recorded By: Janet Ross; 09/27/2019 1:53:36 PM Current Meds Medication NameInstructionReason busPIRone HCl - 5 MG Oral TabletTAKE 1 TABLET TWICE DAILY.Anxiety and depression Albuterol Sulfate HFA 108 (90 Base) MCG/ACT Inhalation Aerosol SolutionINHALE 1 TO 2 PUFFS EVERY 6 HOURS NEEDED.Health Maintenance valACYclovir HCl - 500 MG Oral TabletTAKE 1 TABLET DAILY.HSV (herpes simplex virus) infection Blood Glucose Test In Vitro StripUSE 1 STRIP DailyPMH: History of diabetes mellitus Fingerstix LancetsCHECK BS ONCE DAILYPMH: History of diabetes mellitus glipiZIDE 5 MG Oral TabletTake 1 tablet twice dailyPMH: History of diabetes mellitus metFORMIN HCl - 1000 MG Oral TabletTAKE 1 TABLET BY MOUTH TWICE DAILYPMH: History of diabetes mellitus Trulicity 0.75 MG/0.5ML Subcutaneous Solution Pen-injectorINJECT 0.75 MG WeeklyPMH: History of diabetes mellitus FLUoxetine HCl - 20 MG Oral CapsuleSocHx: Current smoker Benadryl 25 MG TABS [place] Carbonate 300 MG Oral Capsule Vitals Vital Signs Recorded: 83Ork4044 08:55AM Heart Rate73 Nvfjrqwtgkj57 Lowraiyy232 Sqbtvzwab99 Height5 ft 2 in Nrzkrw680 lb BMI Xzlfpjufgq76.56 kg/m2 BSA Calculated1.82 Tobacco Usea) Yes Patient encouraged to stop using tobacco productsYes Falls Screening (Age 18+)a) No falls within the last year O2 Daaterkyqc65 Physical Exam General: Alert and oriented, No acute distress. Neck: Supple, Non-tender, No lymphadenopathy, No thyromegaly. Respiratory: Lungs are clear to auscultation, Respirations are non-labored, Breath sounds are equal, Symmetrical chest wall expansion. Cardiovascular: Normal rate, Regular rhythm, No murmur. Normal gait. Neurologic: Alert, Oriented, No focal deficits. Cognition and Speech: Oriented, Speech clear and coherent, Functional cognition intact. Psychiatric: Cooperative, Appropriate mood AND affect, Normal judgment. 'Scores and Scales' Signatures Electronically signed by : Jamari Byrne MD; Feb 22 2022 9:20AM EST (Author) Normal [employer] Office Visit ([facility]on 01-04-2022 Follow-up visit Diagnoses/Problems Anxiety and depression (300.00,311) (F41.9,F32.A) PTSD (post-traumatic stress disorder) (309.81) (F43.10) Provider Impressions Letter given. Chief Complaint pt needs letter to verify she is disabled. History of Present Illness 26 YOF presents for documentation stating she is disabled. She is mentally disabled with diagnoses of anxiety/depression/PTSD . She follows Dr. Gonzalez for this. She needs letter stating this for income-based housing. No other concerns. Review of Systems Review of Systems: Constitutional: no fever, no unintentional weight change Eye: no recent visual problem Respiratory: no shortness of breath Cardiac: no chest pain GI: no reflux, no nausea, no vomiting, no diarrhea, no constipation, no heartburn, no abdominal pain Neurological: no headache Active Problems Anxiety and depression (300.00,311) (F41.9,F32.A) Chlamydia infection (079.98) (A74.9) Colitis, trichomonas (007.3) (A07.8) Diabetes (250.00) (E11.9) GERD (gastroesophageal reflux disease) (530.81) (K21.9) HSV (herpes simplex virus) infection (054.9) (B00.9) Infection due to Tritrichomonas species (136.8) (A07.8) PTSD (post-traumatic stress disorder) (309.81) (F43.10) Screening for cervical cancer (V76.2) (Z12.4) Screening for STD (sexually transmitted disease) (V74.5) (Z11.3) Seizure-like activity (780.39) (R56.9) Trichomoniasis (131.9) (A59.9) Vaginal discharge (623.5) (N89.8) Past Medical History History of Papanicolaou smear (V45.89) (Z98.890) 01/31/2019 History of spontaneous (V13.29) (Z87.59) 02/20/2018 History of Menarche (V21.8) AGE 15 Surgical History History of Cholecystectomy 2014 History of Dilation and curettage Family History Family history of asthma (V17.5) (Z82.5) Family history of diabetes mellitus (V18.0) (Z83.3) Family history of hypertension (V17.49) (Z82.49) FHx: mental illness (V17.0) (Z81.8) Family history of cardiac disorder (V17.49) (Z82.49) Family history of diabetes mellitus (V18.0) (Z83.3) Family history of hypertension (V17.49) (Z82.49) Family history of myocardial infarction (V17.3) (Z82.49) Family history of thyroid disease (V18.19) (Z83.49) Family history of TBI (traumatic brain injury) FHx: mental illness (V17.0) (Z81.8) Family history of diabetes mellitus (V18.0) (Z83.3) Social History Consumes alcohol occasionally (V49.89) (Z78.9) Current smoker (305.1) (F17.200) 1/2 PPD No illicit drug use Sexually active Allergies quetiapine Unknown; Recorded By: Janet Ross; 09/27/2019 1:53:36 PM Reglan Unknown; Recorded By: Janet Ross; 09/27/2019 1:53:36 PM Zofran Unknown; Recorded By: Janet Ross; 09/27/2019 1:53:36 PM Current Meds Medication NameInstructionReason busPIRone HCl - 5 MG Oral TabletTAKE 1 TABLET TWICE DAILY.Anxiety and depression Blood Glucose Test In Vitro StripUSE 1 STRIP DailyDiabetes Fingerstix LancetsCHECK BS ONCE DAILYDiabetes glipiZIDE 10 MG Oral TabletTake 1 tablet twice dailyDiabetes metFORMIN HCl - 1000 MG Oral TabletTAKE 1 TABLET BY MOUTH TWICE DAILYDiabetes Trulicity 0.75 MG/0.5ML Subcutaneous Solution Pen-injectorINJECT 0.75 MG WeeklyDiabetes Albuterol Sulfate HFA 108 (90 Base) MCG/ACT Inhalation Aerosol SolutionINHALE 1 TO 2 PUFFS EVERY 6 HOURS NEEDED.Health Maintenance valACYclovir HCl - 500 MG Oral TabletTAKE 1 TABLET DAILY.HSV (herpes simplex virus) infection FLUoxetine HCl - 40 MG Oral CapsuleSocHx: Current smoker Benadryl 25 MG TABS Vitals Vital Signs Recorded: 83Apf5965 01:47PM Heart Rate80 Zhcaeytb263 Rmbgyynfv63 Height5 ft 2 in Xovexy302 lb 15.70 oz BMI Aonuvsfkvr71.91 kg/m2 BSA Calculated1.78 Tobacco Usea) Yes Patient encouraged to stop using tobacco productsYes Falls Screening (Age 18+)a) No falls within the last year Physical Exam General: Alert and oriented. No acute distress Eye: Normal conjunctiva HENT: Normocephalic Respiratory: Respirations not labored Cardiovascular: Normal rate, no edema Gastrointestinal: Nondistended Integumentary: Warm, dry, pink Psychiatric: Cooperative, good affect, eye contact, judgment, insight, voice 'Scores and Scales' Signatures Electronically signed by : Elie Collins PA-C; Jan 04 2022 2:03PM EST (Author) [facility]22 Fall risk assessment a) No falls within the last year [facility] Work Phone: Tobacco use status CP a) Yes [facility] Work Phone: Tobacco Screening. Yes [facility] Work Phone: LMPon 12-25-2021 Last menstrual period start date [id number] [address] Work Phone: [facility] - Office Visiton 12-07 [facility] - Office Visit Provider Marivel mark Patient is a 26-year-old who comes in for test of cure for trichomoniasis. Wet mount was negative. Reviewed her results of her chlamydia which came back negative as well. Recent positive results for HSV-1 and HSV-2 discussed the option of prophylaxis versus expectant management and calling us when she has an outbreak. Patient wishes to begin prophylaxis with Valtrex. Patient was informed that if she has an outbreak while on the Valtrex she should call us so we can send a adjustment in her dose to her pharmacy Follow-up in 1 year Chief Complaint PT HERE TODAY FOR A FOLLOW UP. PT HERE FOR WET MOUNT TO CHECK FOR TRICH. PT IS DENIES HAVING ANY SYMPTOMS. PT ASKED IF SHE WAS GETTING MORE BLOOD WORK DONE FOR HSV. LMP 12/15/21 History of Present IllnessPatient is a 26-year-old who comes in for a test of cure for trichomoniasis. Patient was here last week for test of cure for chlamydia. Patient reports that her partner has been treated and they have not engaged in coitus since her diagnosis. Patient has no concerns today Active Problems Problems Anxiety and depression (300.00,311) (F41.9,F32.A) Chlamydia infection (079.98) (A74.9) Colitis, trichomonas (007.3) (A07.8) Diabetes (250.00) (E11.9) GERD (gastroesophageal reflux disease) (530.81) (K21.9) Infection due to Tritrichomonas species (136.8) (A07.8) PTSD (post-traumatic stress disorder) (309.81) (F43.10) Screening for cervical cancer (V76.2) (Z12.4) Screening for STD (sexually transmitted disease) (V74.5) (Z11.3) Seizure-like activity (780.39) (R56.9) Trichomoniasis (131.9) (A59.9) Vaginal discharge (623.5) (N89.8) Past Medical History Problems History of Papanicolaou smear (V45.89) (Z98.890) 01/31/2019 History of spontaneous (V13.29) (Z87.59) 02/20/2018 History of Menarche (V21.8) AGE 15 Surgical History Problems History of Cholecystectomy 2014 History of Dilation and curettage Family History Mother Family history of asthma (V17.5) (Z82.5) Family history of diabetes mellitus (V18.0) (Z83.3) Family history of hypertension (V17.49) (Z82.49) FHx: mental illness (V17.0) (Z81.8) Father Family history of cardiac disorder (V17.49) (Z82.49) Family history of diabetes mellitus (V18.0) (Z83.3) Family history of hypertension (V17.49) (Z82.49) Family history of myocardial infarction (V17.3) (Z82.49) Family history of thyroid disease (V18.19) (Z83.49) Daughter Family history of TBI (traumatic brain injury) Sibling FHx: mental illness (V17.0) (Z81.8) Grandparent Family history of diabetes mellitus (V18.0) (Z83.3) Social History Problems Consumes alcohol occasionally (V49.89) (Z78.9) Current smoker (305.1) (F17.200) 1/2 PPD No illicit drug use Sexually active Allergies Medication quetiapine Unknown; Recorded By: Janet Ross; 09/27/2019 1:53:36 PM Reglan Unknown; Recorded By: Janet Ross; 09/27/2019 1:53:36 PM Zofran Unknown; Recorded By: Janet Ross; 09/27/2019 1:53:36 PM Current Meds Medication NameInstruction Albuterol Sulfate HFA 108 (90 Base) MCG/ACT Inhalation Aerosol SolutionINHALE 1 TO 2 PUFFS EVERY 6 HOURS NEEDED. Blood Glucose Test In Vitro StripUSE 1 STRIP Daily busPIRone HCl - 5 MG Oral TabletTAKE 1 TABLET TWICE DAILY. Fingerstix LancetsCHECK BS ONCE DAILY FLUoxetine HCl - 40 MG Oral Capsule glipiZIDE 10 MG Oral TabletTake 1 tablet twice daily metFORMIN HCl - 1000 MG Oral TabletTAKE 1 TABLET BY MOUTH TWICE DAILY metroNIDAZOLE 500 MG Oral TabletTAKE 4 TABLET Once metroNIDAZOLE 500 MG Oral TabletTAKE 4 TABLETS ONCE. Trulicity 0.75 MG/0.5ML Subcutaneous Solution Pen-injectorINJECT 0.75 MG Weekly Zithromax 1 GM Oral PacketMIX 1 PACKET IN LIQUID AND DRINK ONCE. Vitals Vital Signs Recorded: 25Dec2021 08:36AM Cxdqabxd562 Chpymhesr78 Height5 ft 2 in Yqlvjm382 lb 0.08 oz BMI Rjdhfhkjvr78.36 kg/m2 BSA Calculated1.77 [id number] Physical Exam Constitutional: Healthy-appearing in no physical distress. Head and Face: No obvious lesions. Neck: Supple with good range of motion. External genitalia revealed no lesions the vagina was well estrogenized the cervix was nonfriabl there was a thick white shy-gpxj-msioygqo discharge Musculoskeletal: Good mobility of her extremities. Psychiatric: Appropriately oriented. Wet mount was negative for trichomoniasis Signatures Electronically signed by : Jeanie Sutton DO; Dec 25 2021 8:50AM EST (Author) Normal [employer] GC + CHLAMYDIA BY AMPLIFIED DETECTIONon 12-18-2021 CHLAMYDIA TRACH.,AMPLIFIED Negative Normal Negative [facility] Comment on above: Result Comment: The APTIMA Combo 2 assay is FDA-approved for Chlamydia trachomatis and Neisseria gonorrhoeae testing on female endocervical and vaginal swabs, ThinPrep liquid pap samples, male urine samples and urethral swabs. Performance characteristics for Chlamydia trachomatis and Neisseria gonorrhoeae testing on specific kup-XOK-vkrxqvif sample types (female urine samples) have been validated by [facility]. This laboratory is certified by CLIA to perform high complexity testing. Samples from all other sites are not validated for this method. Performed By: #### [facility] #### [facility] [address] [place] [address] N.GONORRHEA,AMPLIFIED Negative Normal Negative [facility] Comment on above: Result Comment: The APTIMA Combo 2 assay is FDA-approved for Chlamydia trachomatis and Neisseria gonorrhoeae testing on female endocervical and vaginal swabs, ThinPrep liquid pap samples, male urine samples and urethral swabs. Performance characteristics for Chlamydia trachomatis and Neisseria gonorrhoeae testing on specific jfg-PSM-pfacwdwd sample types (female urine samples) have been validated by [facility]. This laboratory is certified by CLIA to perform high complexity testing. Samples from all other sites are not validated for this method. Performed By: #### [facility] #### [facility] [address] [place] [address] GC + CHLAMYDIA BY AMPLIFIED DETECTIONon 12-17-2021 Lab Specimen Source Urine Normal [facility] Comment on above: Performed By: #### [facility] #### [facility] [address] [place] [address] GC + Chlamydia By Amplified Detectionon 12-17-2021 C. trachomatis rRNA SUMIT+probe Ql (Unsp spec) Negative Negative [facility] and [address] Work Phone: Comment on above: The APTIMA Combo 2 a ssay is FDA-approved for Chlamydia trachomatis and Neisseria gonorrhoeae testing on female endocervical and vaginal swabs, ThinPrep liquid pap samples, male urine samples and urethral swabs. Performance characteristics for Chlamydia trachomatis and Neisseria gonorrhoeae testing on specific ofn-FJN-gmhujhdl sample types (female urine samples) have been validated by [facility]. This laboratory is certified by CLIA to perform high complexity testing. Samples from all other sites are not validated for this method. N. gonorrhoeae rRNA SUMIT+probe Ql (Unsp spec) Negative Negative [employer] and [address] Work Phone: Comment on above: SOURCE: Urine The AP KATIA Combo 2 assay is FDA-approved for Chlamydia trachomatis and Neisseria gonorrhoeae testing on female endocervical and vaginal swabs, ThinPrep liquid pap samples, male urine samples and urethral swabs. Performance characteristics for Chlamydia trachomatis and Neisseria gonorrhoeae testing on specific ztl-QBF-bietdpsf sample types (female urine samples) have been validated by [facility]. This laboratory is certified by CLIA to perform high complexity testing. Samples from all other sites are not validated for this method. LMPon 12-17-2021 Last menstrual period start date 15Dec2021 [employer] and [address] Work Phone: [facility] - Office Visiton 12-07 [facility] - Office Visit Diagnoses/Problems Assessed Chlamydia infection (079.98) (A74.9) Screening for STD (sexually transmitted disease) (V74.5) (Z11.3) Orders GC + Chlamydia By Amplified Detection; Status:In Progress - Specimen/Data Collected,Retrospective Authorization; Done: [id number] Provider Impressions Patient is a 26-year-old here for test of cure for chlamydia and trichomoniasis. Additionally discussed her HSV results as well as transmission prophylaxis and treatment. Patient currently on her menses and cannot do a wet mount to evaluate for clearance of trichomoniasis we will follow-up next week for test of cure on track but we will do a test of cure and chlamydia today Chief Complaint Patient is here for Test of Cure. Patient was positive for Chlamydia and Trich last month, patient stated she completed both antibiotics. LMP: 12/15/21. History of Present IllnessPatient is a 26-year-old who comes in for test of cure for chlamydia and trichomoniasis. Patient reports that she did take the medication Flagyl and the powdered Zithromax. She has also informed her sexual partners. Patient currently is on her menses Active Problems Problems Anxiety and depression (300.00,311) (F41.9,F32.A) Chlamydia infection (079.98) (A74.9) Colitis, trichomonas (007.3) (A07.8) Diabetes (250.00) (E11.9) GERD (gastroesophageal reflux disease) (530.81) (K21.9) Infection due to Tritrichomonas species (136.8) (A07.8) PTSD (post-traumatic stress disorder) (309.81) (F43.10) Screening for cervical cancer (V76.2) (Z12.4) Screening for STD (sexually transmitted disease) (V74.5) (Z11.3) Seizure-like activity (780.39) (R56.9) Trichomoniasis (131.9) (A59.9) Vaginal discharge (623.5) (N89.8) Past Medical History Problems History of Papanicolaou smear (V45.89) (Z98.890) 01/31/2019 History of spontaneous (V13.29) (Z87.59) 02/20/2018 History of Menarche (V21.8) AGE 15 Surgical History Problems History of Cholecystectomy 2014 History of Dilation and curettage Family History Mother Family history of asthma (V17.5) (Z82.5) Family history of diabetes mellitus (V18.0) (Z83.3) Family history of hypertension (V17.49) (Z82.49) FHx: mental illness (V17.0) (Z81.8) Father Family history of cardiac disorder (V17.49) (Z82.49) Family history of diabetes mellitus (V18.0) (Z83.3) Family history of hypertension (V17.49) (Z82.49) Family history of myocardial infarction (V17.3) (Z82.49) Family history of thyroid disease (V18.19) (Z83.49) Daughter Family history of TBI (traumatic brain injury) Sibling FHx: mental illness (V17.0) (Z81.8) Grandparent Family history of diabetes mellitus (V18.0) (Z83.3) Social History Problems Consumes alcohol occasionally (V49.89) (Z78.9) Current smoker (305.1) (F17.200) 1/2 PPD No illicit drug use Sexually active Allergies Medication quetiapine Unknown; Recorded By: Janet Ross; 09/27/2019 1:53:36 PM Reglan Unknown; Recorded By: Janet Ross; 09/27/2019 1:53:36 PM Levy Unknown; Recorded By: Janet Ross; 09/27/2019 1:53:36 PM Current Meds Medication NameInstruction Albuterol Sulfate HFA 108 (90 Base) MCG/ACT Inhalation Aerosol SolutionINHALE 1 TO 2 PUFFS EVERY 6 HOURS NEEDED. Blood Glucose Test In Vitro StripUSE 1 STRIP Daily busPIRone HCl - 5 MG Oral TabletTAKE 1 TABLET TWICE DAILY. Fingerstix LancetsCHECK BS ONCE DAILY FLUoxetine HCl - 40 MG Oral Capsule glipiZIDE 10 MG Oral TabletTake 1 tablet twice daily metFORMIN HCl - 1000 MG Oral TabletTAKE 1 TABLET BY MOUTH TWICE DAILY metroNIDAZOLE 500 MG Oral TabletTAKE 4 TABLET Once metroNIDAZOLE 500 MG Oral TabletTAKE 4 TABLETS ONCE. Trulicity 0.75 MG/0.5ML Subcutaneous Solution Pen-injectorINJECT 0.75 MG Weekly Zithromax 1 GM Oral PacketMIX 1 PACKET IN LIQUID AND DRINK ONCE. Vitals Vital Signs Recorded: [id number] 09:02AM Dzxhmlrj152 Ablznnqij43 Height5 ft 2 in Duxfyx308 lb 7.14 oz BMI Jmbleyoqki98.44 kg/m2 BSA Calculated1.77 [id number] Physical Exam Constitutional: Healthy-appearing in no physical distress. Head and Face: No gross lesions. Abdomen: Soft nontender. External genitalia revealed no lesions the vagina revealed moderate amount of blood Musculoskeletal: Good mobility of her extremities. Psychiatric: Appropriately oriented with normal mood and affect. Signatures Electronically signed by : Jeanie Sutton DO; Dec 17 2021 10:13AM EST (Author) Normal [employer] Cult, Genitalon 11-26-2021 Bacteria identified Aer cx Nom (Genital specimen) [facility] and [address] Work Phone: GC + Chlamydia By Amplified Detectionon 11-26-2021 C. trachomatis rRNA SUMIT+probe Ql (Unsp spec) Positive Abnormal Negative [facility] and [address] Work Phone: Comment on above: The APTIMA Combo 2 a ssay is FDA-approved for Chlamydia trachomatis and Neisseria gonorrhoeae testing on female endocervical and vaginal swabs, ThinPrep liquid pap samples, male urine samples and urethral swabs. Performance characteristics for Chlamydia trachomatis and Neisseria gonorrhoeae testing on specific qex-ZEM-qkxuxtor sample types (female urine samples) have been validated by [facility]. This laboratory is certified by CLIA to perform high complexity testing. Samples from all other sites are not validated for this method. N. gonorrhoeae rRNA SUMIT+probe Ql (Unsp spec) Negative Negative [facility] [address] Work Phone: Comment on above: SOURCE: Urine The AP KATIA Combo 2 assay is FDA-approved for Chlamydia trachomatis and Neisseria gonorrhoeae testing on female endocervical and vaginal swabs, ThinPrep liquid pap samples, male urine samples and urethral swabs. Performance characteristics for Chlamydia trachomatis and Neisseria gonorrhoeae testing on specific gur-GPV-esuwbjos sample types (female urine samples) have been validated by [facility]. This laboratory is certified by CLIA to perform high complexity testing. Samples from all other sites are not validated for this method. HIV 1/2 ANTIGEN/ANTIBODY SCR EEN WITH REFLEX TO CONFIRMATIONon 11-26-2021 HIV 1+2 Ab Qn (S) Non-Reactive See Below [facility] and [address] Work Phone: Comment on above: SOURCE: Reference Ra nge: NONREACTIVE HIV Ag/Ab screen is performed using the Siemens TagorallEV Connect HIV Ag/Ab Combo assay which detects the presence of HIV p24 antigen as well as antibodies to HIV-1 (Group M and O) and HIV-2..No laboratory evidence of HIV infection. If acute HIV infection is suspected, consider testing for HIV RNA by PCR (viral load). HSV TYPE I / II, IGMon 11-26 HSV 1+2 IgM IA Qn (S) 0.78 {IV} <=0.89 [facility] and [address] Work Phone: Comment on above: INTERPRETIVE INFORMA TION: Herpes Simplex Virus Type 1 and/or 2 Antibodies, IgM by SYLVIE 0.89 IV or Less .......... Not Detected 0.90 - 1.09 IV ........... Indeterminate- Repeat testing in 10-14 days may be helpful. 1.10 IV or Greater ....... Detected-IgM antibody to HSV detected, which may indicate a current or recent infection. However, low levels of IgM antibodies may occasionally persist for more than 12 months post-infection.Performed By: [employer] [place] [address] [id number] Director: Carlene Gore MD LMPon 11-26-2021 Last menstrual period start date 13Nov2021 [employer] Work Phone: Laboratory - Cytologyon 11-08 Cytology report Cyto stain.thin prep Doc (Cvx/Vag) [employer] Work Phone: No Panel Informationon 11-26 >8.0 Abnormal [employer] Work Phone: Comment on above: POTENTIAL FOR CROSS- REACTIVITY BETWEENHSV I AND HSV II EXISTS.REF VALUESNEGATIVE <0.9EQUIVOCAL >=0.90 <=1.10POSITIVE >1.10 5.0 {INDEX} Abnormal [employer] Work Phone: Comment on above: REF VALUESNEGATIVE < 0.9EQUIVOCAL >=0.90 <=1.10POSITIVE >1.10 P[facility]ANGER - Office Visiton 11-08 POUL[facility]ANGER - Office Visit Diagnoses/Problems Assessed Screening for cervical cancer (V76.2) (Z12.4) Colitis, trichomonas (007.3) (A07.8) Infection due to Tritrichomonas species (136.8) (A07.8) Orders HIV 1/2 ANTIGEN/ANTIBODY SCREEN WITH REFLEX TO CONFIRMATION; Status:Active; Requested for:26Nov2021; HSV IgG1 And IgG2 Ab; Status:Active; Requested for:26Nov2021; HSV TYPE I / II, IGM; Status:Active; Requested for:26Nov2021; SYPHILIS SCREENING WITH REFLEX; Status:Active; Requested for:26Nov2021; PAP TRANSMISSION REPAIRER, Cytology; Status:In Progress - Specimen/Data Collected,Retrospective Authorization; Done: 26Nov2021 Last Menstrual Period (LMP): : 11/13/2021 PAP - Site : CERVICAL Cytology Order : ThinPrep PAP, Screening, HPV Reflex - Include Genotyping Provider Impressions Patient is a 26-year-old who comes in for routine TRANSMISSION REPAIRER exam. Pap smear was done. Currently declines contraception since she is not sexually active. Trichomoniasis found on exam. Will treat with Flagyl and will do a full STD panel. Follow-up in 3 weeks for test of cure. Also informed her that her partner needs to be treated. Chief Complaint Patient here today for yearly. Her last pap was 3-4 years ago in [place] that the patient states was normal. She has no concerns. She does not do a self breast exam. LMP:11/13/2021 History of Present IllnessPatient is a 26-year-old who comes in for routine TRANSMISSION REPAIRER exam. Patient reports she has not been sexually active since September. Patient reports that she has had 3 sexual partners in the last 12 months. Patient has not been using anything for contraception. Patient has no specific complaints today. Currently has no plans to become sexually active in the near future. Patient is a diabetic diagnosed at age 15. Her last hemoglobin A1c was markedly elevated. She reports that she has recently started Trulicity Review of Systems Cardiovascular: Denies any chest pain or palpitations. Respiratory: Denies any shortness of breath. Gastrointestinal: Denies any abdominal pain or changes in appetite. Genitourinary: Admits to having a low-grade vaginal discharge. Psychiatric: Denies any significant change in her mood or in her sleep. Active Problems Problems Anxiety and depression (300.00,311) (F41.9,F32.A) Diabetes (250.00) (E11.9) GERD (gastroesophageal reflux disease) (530.81) (K21.9) PTSD (post-traumatic stress disorder) (309.81) (F43.10) Seizure-like activity (780.39) (R56.9) Past Medical History Problems History of Papanicolaou smear (V45.89) (Z98.890) 01/31/2019 History of spontaneous (V13.29) (Z87.59) 02/20/2018 History of Menarche (V21.8) AGE 15 Surgical History Problems History of Cholecystectomy 2014 History of Dilation and curettage Family History Mother Family history of asthma (V17.5) (Z82.5) Family history of diabetes mellitus (V18.0) (Z83.3) Family history of hypertension (V17.49) (Z82.49) FHx: mental illness (V17.0) (Z81.8) Father Family history of cardiac disorder (V17.49) (Z82.49) Family history of diabetes mellitus (V18.0) (Z83.3) Family history of hypertension (V17.49) (Z82.49) Family history of myocardial infarction (V17.3) (Z82.49) Family history of thyroid disease (V18.19) (Z83.49) Daughter Family history of TBI (traumatic brain injury) Sibling FHx: mental illness (V17.0) (Z81.8) Grandparent Family history of diabetes mellitus (V18.0) (Z83.3) Social History Problems Consumes alcohol occasionally (V49.89) (Z78.9) Current smoker (305.1) (F17.200) 1/2 PPD No illicit drug use Sexually active Allergies Medication quetiapine Unknown; Recorded By: Janet Ross; 09/27/2019 1:53:36 PM Reglan Unknown; Recorded By: Janet Ross; 09/27/2019 1:53:36 PM Zofran Unknown; Recorded By: Janet Ross; 09/27/2019 1:53:36 PM Current Meds Medication NameInstruction Albuterol Sulfate HFA 108 (90 Base) MCG/ACT Inhalation Aerosol SolutionINHALE 1 TO 2 PUFFS EVERY 6 HOURS NEEDED. Blood Glucose Test In Vitro StripUSE 1 STRIP Daily busPIRone HCl - 5 MG Oral TabletTAKE 1 TABLET TWICE DAILY. Fingerstix LancetsCHECK BS ONCE DAILY FLUoxetine HCl - 40 MG Oral Capsule glipiZIDE 10 MG Oral TabletTake 1 tablet twice daily metFORMIN HCl - 1000 MG Oral TabletTAKE 1 TABLET BY MOUTH TWICE DAILY Trulicity 0.75 MG/0.5ML Subcutaneous Solution Pen-injectorINJECT 0.75 MG Weekly Vitals Vital Signs Recorded: 26Nov2021 09:02AM Rpehnphi810 Yldyjvgla80 Height5 ft 2 in Mnpzot854 lb BMI Ukylkouvuc59.09 kg/m2 BSA Calculated1.78 [id number] Physical Exam Constitutional: Healthy-appearing woman in no distress. Head and Face: No obvious lesions. Neck: Supple without adenopathy. Cardiovascular: Regular rate and rhythm. Pulmonary: Clear to auscultation. Chest: Breasts were symmetrical with diffuse fibrocystic changes but no discrete masses discharge or retraction. Abdomen: Soft nontender no masses. External genitalia was slightly erythematous. The vagina was well estr (more content not included)... Normal [facility] SYPHILIS SCREENING WITH REFL EXon 11-26-2021 T. pallidum IgG+IgM IA Ql (S) Non-Reactive See Below [facility] and [address] [place] [address] Work Phone: Comment on above: Reference Range: NON REACTIVENo significant level of Treponema pallidum antibody detected. Repeat testing in 2 to 4 weeks may be considered if early infection or incubating syphilis infection is suspected. Hemoglobin A1Con 11-12-2021 Glucose [Mass/Vol] 266 mg/dL [facility] Work Phone: HbA1c (Bld) [Mass fraction] 10.9 % Abnormal [facility] Work Phone: Comment on above: Diagnosis of Diabete s-Adults Non-Diabetic: < or = 5.6% Increased risk for developing diabetes: 5.7-6.4% Diagnostic of diabetes: > or = 6.5%. Monitoring of Diabetes Age (y) Therapeutic Goal (%) Adults: >18 <7.0 Pediatrics: 13-18 <7.5 7-12 <8.0 0- 6 7.5-8.5 [place] [employer]. Diabetes Care 33(S1), Jun 2009. Laboratory - Chemistry and C hemistry - challengeon 11-12-2021 Anion gap [Moles/Vol] 13 mmol/L 10 - 20 [facility] Work Phone: Calcium [Mass/Vol] 9.4 mg/dL 8.6 - 10.3 [facility] Work Phone: Chloride [Moles/Vol] 105 mmol/L 98 - 107 [facility] Work Phone: CO2 [Moles/Vol] 23 mmol/L 21 - 32 [facility] Work Phone: Creatinine [Mass/Vol] 0.51 mg/dL See Below [facility] Work Phone: Comment on above: Reference Range: 0.5 0 - 1.05 Glucose [Mass/Vol] 96 mg/dL 74 - 99 [facility] Work Phone: Potassium [Moles/Vol] 3.8 mmol/L 3.5 - 5.3 [facility] Work Phone: Sodium [Moles/Vol] 137 mmol/L 136 - 145 [facility] Work Phone: Urea nitrogen [Mass/Vol] 11 mg/dL 6 - 23 [facility] Work Phone: No Panel Informationon 11-12 >90 >90 [facility] Work Phone: Comment on above: CALCULATIONS OF ASCENCION MATED GFR ARE PERFORMED USING THE 2020 CKD-EPI STUDY REFIT EQUATION WITHOUT THE RACE VARIABLE FOR THE IDMS-TRACEABLE CREATININE METHODS.https://jasn.asnjournals.org/content/early// N.7779212945 Office Visit ([facility] e)on 11-12-2021 Follow-up visit Diagnoses/Problems Seizure-like activity (780.39) (R56.9) neurologist last seen 1 year tegretol and no meds needed with MRI eeg sleep study 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 PTSD (post-traumatic stress disorder) (309.81) (F43.10) Diabetes (250.00) (E11.9) Anxiety and depression (300.00,311) (F41.9,F32.A) GERD (gastroesophageal reflux disease) (530.81) (K21.9) tums prn Orders Diabetes Renew: glipiZIDE 10 MG Oral Tablet; Take 1 tablet twice daily Basic Metabolic Panel; Status:Active; Requested for:12Nov2021; Follow-up visit in 3 months Outpatient Follow-up Status: Hold For - Scheduling Requested for: 12Nov2021 Renew: metFORMIN HCl - 1000 MG Oral Tablet; TAKE 1 TABLET BY MOUTH TWICE DAILY Hemoglobin A1C; Status:Active; Requested for:12Nov2021; Chief Complaint New pt. here to establish and discuss Blood sugar. 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8) AGE 15 Surgical History History of Cholecystectomy 2014 History of Dilation and curettage Family History Family history of asthma (V17.5) (Z82.5) Family history of diabetes mellitus (V18.0) (Z83.3) Family history of hypertension (V17.49) (Z82.49) FHx: mental illness (V17.0) (Z81.8) Family history of cardiac disorder (V17.49) (Z82.49) Family history of diabetes mellitus (V18.0) (Z83.3) Family history of hypertension (V17.49) (Z82.49) Family history of myocardial infarction (V17.3) (Z82.49) Family history of thyroid disease (V18.19) (Z83.49) Family history of TBI (traumatic brain injury) FHx: mental illness (V17.0) (Z81.8) Family history of diabetes mellitus (V18.0) (Z83.3) Social History Consumes alcohol occasionally (V49.89) (Z78.9) Current smoker (305.1) (F17.200) 1/2 PPD No illicit drug use Sexually active Allergies quetiapine Unknown; Recorded By: Janet Ross; 09/27/2019 1:53:36 PM Reglan Unknown; Recorded By: Janet Ross; 09/27/2019 1:53:36 PM Zofran Unknown; Recorded By: Janet Ross; 09/27/2019 1:53:36 PM Current Meds Medication NameInstructionReason busPIRone HCl - 5 MG Oral TabletTAKE 1 TABLET TWICE DAILY.Anxiety and depression glipiZIDE 10 MG Oral TabletTake 1 tablet twice dailyDiabetes metFORMIN HCl - 1000 MG Oral TabletTAKE 1 TABLET BY MOUTH TWICE DAILYDiabetes Albuterol Sulfate HFA 108 (90 Base) MCG/ACT Inhalation Aerosol SolutionINHALE 1 TO 2 PUFFS EVERY 6 HOURS NEEDED.Health Maintenance FLUoxetine HCl - 40 MG Oral CapsuleSocHx: Current smoker Vitals Vital Signs Recorded: 12Nov2021 10:17AM Heart Rate95 Prxtfcjz422 Qfiprnfah25 Imabdc268.5 cm Guvbjg52.74 kg BMI Azogltzbqu37.95 kg/m2 BSA Calculated1.82 Tobacco Usea) Yes PHQ-2 #1. Over the last 2 weeks have you felt down, depressed or hopeless? (If yes, answer PHQ-9 below)Yes PHQ-2 #2. Over the last 2 weeks have you felt little interest or pleasure in doing things? (If yes, answer PHQ-9 below)Yes Physical Exam General: Alert and oriented, No acute distress. Neck: Supple, Non-tender, No lymphadenopathy, No thyromegaly. Respiratory: Lungs are clear to auscultation, Respirations are non-labored, Breath sounds are equal, Symmetrical chest wall expansion. Cardiovascular: Normal rate, Regular rhythm, No murmur. Musculoskeletal Normal gait. Neurologic: Alert, Oriented, No focal deficits. Cognition and Speech: Oriented, Speech clear and coherent, Functional cognition intact. Psychiatric: Cooperative, Appropriate mood AND affect, Normal judgment. 'Scores and Scales' Signatures Electronically signed by : Jamari Byrne MD; Nov 12 2021 10:47AM EST (Author) Normal [employer] Tobacco Screening.on 022 Adult depression screening assessment Yes -[facility] Work Phone: Tobacco use status CPHS a) Yes -[facility] Work Phone: Auth for Release of Medical Recordson 08-07-2021 Auth for Release of Medical Records [id number]#1.00C D:127 Normal [facility] Lab Reportson 08-06-2021 Lab Reports [id number]#1.00C D:127 Normal [facility] Family Medicine Office/Clini c Noteon 08-05-2021 Family Medicine Office/Clinic Note Chief Complaint 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 SHe is DM2, asthma. Sees [facility] for psych. 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 Here today requesting to establish care. Patient is here for follow up on Diabetes. Are you checking your blood sugars at home? No Do you have low/high blood sugar readings/symptoms? Fatigue - wonders if her sugars have been running high. Notes last A1C was 10%? approximately 1 year ago. Are you compliant with diet/exercise? No specific diet and exercise followed. Are you compliant with your medications? Yes -Metformin and glipizide Do you have side effects from the medication? No Most Recent Diabetic Screenings: Foot Exam: Will complete today. Last Diabetic Eye Exam: 1 year ago? NL per patient. History of asthma which patient feels has been well controlled. Unfortunately she does smoke cigarettes, trying to wean herself from use. Follows [facility] - feels depression and anxiety has been well controlled with current medication regimen -buspirone and fluoxetine. Also reports history of borderline personality disorder. 2020 - NL pap smear per patient. 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 OARRS reviewed and without concerns. Not fasting today for labs. Review of Systems PHQ Score Initial Depression Screen Score: 4 Detailed Depression Screen Score: 10 Total Depression Screen Score: 14 Review of Systems: See HPI. Constitutional: See HPI. EENT: Denies hearing changes, visual changes. Respiratory: Denies cough, wheezing or difficulty breathing. Endocrine: Denies frequent urination, increased thirst. Cardiovascular: Denies chest pain or pressure, shortness of breath with normal activity, palpitations. Neurologic: Denies weakness, numbness or tingling, headaches that are new or changing in frequency, visual disturbances. Gastrointestinal: Denies bloody or black bowel movements, change in bowel habits. Psychiatric: Denies suicidal thoughts. Physical Exam Vitals & Measurements T: 36.7 ?C(Tympanic) HR: 96(Peripheral) RR: 16 BP: 128/72 HT: 160 cm HT: 160.0 cm WT: 87.0 kg WT: 87.0 kg BMI: 33.98 General: Well developed, well nourished, female adult in no acute distress sitting upright on exam table. Head: Normocephalic/atraumati c. Eyes: No conjunctival irritation, wears corrective lenses. Ears: Grossly normal hearing. Nose: No discharge. Mouth: MMM, talkative. Neck: Supple. No carotid bruits, bilaterally. Thyroid not enlarged. Chest: No distress. Lungs: Normal respiratory effort, slightly diminished throughout, yet clear to auscultation. No rhonchi or wheeze. Cardio: RRR, without murmur. Abdomen: Normal bowel sounds noted. Abdomen is soft and nontender. Musculoskeletal: Steady gait. Extremities: No edema. Neurologic: Grossly normal. Skin: Skin is tanned, warm and dry. Lymph Nodes: No cervical adenopathy, nodes normal. Mental Status: Alert and cooperative. Pleasant, appreciative. Diabetic Foot Exam Decreased Monofilament Sensation Foot: Left - Normal, Right - Normal Bunions/Foot Deformity: Left - Normal, Right - Normal Abnormal Pulse Foot: Left - Normal, Right - Normal Skin Lesions Foot: Left - Normal, Right - Normal Vibratory Sensation Foot: Left - Normal, Right - Normal Foot Exam Result: Normal foot exam Assessment/Plan 1. Uncontrolled type 2 diabetes mellitus (E11.65: Type 2 diabetes mellitus with hyperglycemia) Patient is not fasting today, outpatient lab orders provided to patient. Will call with results. Continue current medication regimen Metformin and glipizide. Will send diabetic testing supplies to pharmacy. Follow low-carb/low sugar diet, weight reduction encouraged. 2. Intermittent asthma (J45.20: Mild intermittent asthma, uncomplicated) Utilizes albuterol sparingly. Smoking cessation strongly encouraged. 3. Cigarette smoker (F17.210: Nicotine dependence, cigarettes, uncomplicated) Smoking cessation strongly encouraged. Cigarette smoking harms nearly every organ of the body, causes many diseases, and reduces the health of smokers in general. Quitting smoking lowers your risk for smoking-related diseases and can add years to your life. 1-482-DCIX-NOW or www.smokefree.gov provide access to helpful resources including free telephone support. If you decide prescription treatment may help you quit, please contact your provider. 4. Obesity due to excess calories (E66.09: Other obesity due to excess calories) Routine physical exercise and a healthy diet to promote weight reduction and improve overall health encouraged. 5. BMI 33.0-33.9,adult (Z68.33: Body mass index [BMI] 33.0-33.9, adult) See above. Achieving an optimal weight is imperative to improving overall health. 6. Major depressive disorder, recurrent, moderate (F33.1: Major depressive disorder, recurrent, moderate) Fairly stable, keep follow-up appointments with psychiatrist as scheduled. 7. SHIRA (generalized anxiety disorder) (F41.1: (more content not included)... Normal [facility] Comment on above: Result Comment: Elec tronically Signed By: Katiana BOYD CNP\.cora\Date and Time Signed: 08/05/21 08:57 EST Hemoglobin A1Con 08-05-2021 Glucose [Mass/Vol] 235 mg/dL Normal [facility] Comment on above: Result Comment: The ADA and AACC recommend providing the estimated average glucose result to permit better patient understanding of their HBA1c result. Performed By: #### C JALEEL BELL, TSHX #### [facility] [address] [place] [address] Car Shunter: Milly Truong MD #### LIPR, GLYHGB, URNMAB #### [facility] [employer] [address] [place] [address] Car Shunter: Brice Jovel MD HbA1c (Bld) [Mass fraction] 9.8 % High 4.0-6.0 [facility] Comment on above: Performed By: #### C JALEEL BELL, TSHX #### [facility] [address] [place], [place] [id number] Car Shunter: Milly Truong MD #### LIPR, GLYHGB, URNMAB #### [facility] [employer] [address] [place] [address] [id number] Car Shunter: Brice Jovel MD Lipid Profileon 08-04-2021 Cholesterol [Mass/Vol] 252 mg/dL High <200 [facility] Comment on above: Result Comment: Cholesterol Guidelines: <200 Desirable 200-240 Borderline >240 Undesirable Performed By: #### C DP, CP, TSHX #### [facility] [address] [place], [place] [id number] Car Shunter: Milly Truong MD #### LIPR, GLYHGB, URNMAB #### [address] [id number] Car Shunter: Brice Jovel MD Cholesterol in HDL [Mass/Vol] 43 mg/dL Normal >40 [facility] Comment on above: Result Comment: HDL Guidelines: <40 Undesirable 40-59 Borderline >59 Desirable Performed By: #### C DP, CP, TSHX #### [facility] [address] [place], [place] [id number] Car Shunter: Milly Truong MD #### LIPRebecca, GLYHGB, URNMAB #### [address] [id number] Car Shunter: Brice Jovel MD Cholesterol in LDL [Mass/Vol] 180 mg/dL High 0-130 [facility] Comment on above: Result Comment: LDL Guidelines: <100 Desirable 100-129 Near to/above Desirable 130-159 Borderline >159 Undesirable Direct (measured) LDL and calculated LDL are not interchangeable tests. Performed By: #### C DP, CP, TSHX #### [facility] [address] [place], [place] [phone] Car Shunter: Milly Truong MD #### LIPR, GLYHGB, URNMAB #### [facility] [address] [place] [address] Car Shunter: Brice Jovel MD Cholesterol.total/Cho lesterol in HDL [Mass ratio] 5.9 {ratio} High <5 [facility] Comment on above: Performed By: #### C JALEEL BELL, TSHX #### [facility] [address] [place] [address] Car Shunter: Milly Truong MD #### LIPR, GLYHGB, URNMAB #### [facility] [address] [place], [place] [phone] Car Shunter: Brice Jovel MD Triglyceride [Mass/Vol] 144 mg/dL Normal <150 [facility] Comment on above: Result Comment: Triglyceride Guidelines: <150 Desirable 150-199 Borderline 200-499 High >499 Very high Based on AHA Guidelines for fasting triglyceride, March 2012. Performed By: #### C JALEEL BELL, TSHX #### [facility] [address] [place] [address] Car Shunter: Milly Truong MD #### LIPR, GLYHGB, URNMAB #### [id number] [place] [address] Car Shunter: Brice Jovel MD Microalb.,Random Uron 2021 Creatinine [Mass/Vol] 194.3 mg/dL Normal 28.0-217.0 [facility] Comment on above: Performed By: #### C JALEEL BELL, TSHX #### [facility] [address] [place], [place] [phone] Car Shunter: Milly Truong MD #### LIPR, GLYHGB, URNMAB #### [facility] [address] [place], [place] [phone] Car Shunter: Brice Jovel MD Microalb/Creat Ratio 20 mcg/mg creat Normal <25 [facility] Comment on above: Performed By: #### C DP, CP, TSHX #### [facility] [address] [place], [place] [phone] Car Shunter: Milly Truong MD #### LIPR, GLYHGB, URNMAB #### [address] [id number] Car Shunter: Brice Jovel MD Microalbumin conc. 38 mg/L High <21 [facility] Comment on above: Performed By: #### C DP, CP, TSHX #### [facility] [address] [place], [place] [id number] Car Shunter: Milly Truong MD #### LIPR, GLYHGB, URNMAB #### [address] [id number] Car Shunter: Brice Jovel MD CBC with Diffon 08-03-2021 Abs. Basophil 0.00 k/uL Normal 0.0-0.2 [facility] Comment on above: Performed By: #### C DP, CP, TSHX #### [facility] [address] [place], [place] [id number] Car Shunter: Milly Truong MD #### LIPR, GLYHGB, URNMAB #### [address] [phone] Car Shunter: Brice Jovel MD Abs.Neutrophil (Seg) 5.40 k/uL Normal 2.5-7.0 [facility] Comment on above: Performed By: #### C DP, CP, TSHX #### [facility] [address] [place], [place] [phone] Car Shunter: Milly Truong MD #### LIPR, GLYHGB, URNMAB #### [address] [phone] Car Shunter: Brice Jovel MD Auto Diff Performed YES Normal [facility] Comment on above: Performed By: #### C DP, CP, TSHX #### [facility] [address] [place] [address] Car Shunter: Milly Truong MD #### LIPR, GLYHGB, URNMAB #### [address] [id number] Car Shunter: Brice Jovel MD Basophils/100 WBC (Bld) 0 % Normal 0-2 [facility] Comment on above: Performed By: #### C DP, CP, TSHX #### [facility] [address] [place] [address] Car Shunter: Milly Truong MD #### LIPR, GLYHGB, URNMAB #### [place] [address] Car Shunter: Brice Jovel MD Eosinophils (Bld) [#/Vol] 0.20 10*3/uL Normal 0.0-0.4 [facility] Comment on above: Performed By: #### C DP, CP, TSHX #### [facility] [address] [place] [address] Car Shunter: Milly Truong MD #### LIPR, GLYHGB, URNMAB #### [address] [id number] Car Shunter: Brice Jovel MD Eosinophils/100 WBC (Bld) 2 % Normal 0-5 [facility] Comment on above: Performed By: #### C DP, CP, TSHX #### [facility] [address] [place] [id number] Car Shunter: Milly Truong MD #### LIPR, GLYHGB, URNMAB #### [address] [phone] Car Shunter: Brice Jovel MD Erythrocyte distribution width (RBC) [Ratio] 12.2 % Normal 12.1-15.2 [facility] Comment on above: Performed By: #### C DP, CP, TSHX #### [facility] [address] [place], [place] [id number] Car Shunter: Milly Truong MD #### LIPR, GLYHGB, URNMAB #### [address] [phone] Car Shunter: Brice Jovel MD Hematocrit (Bld) [Volume fraction] 45.6 % Normal 36-46 [facility] Comment on above: Performed By: #### C DP, CP, TSHX #### [facility] [address] [place] [id number] Car Shunter: Milly Truong MD #### LIPR, GLYHGB, URNMAB #### [address] [id number] Car Shunter: Brice Jovel MD Hemoglobin (Bld) [Mass/Vol] 15.9 g/dL Normal 12.0-16.0 [facility] Comment on above: Performed By: #### C DP, CP, TSHX #### [facility] [address] [place] [address] Car Shunter: Milly Truong MD #### LIPR, GLYHGB, URNMAB #### [address] [id number] Car Shunter: Brice Jovel MD Lymphocytes (Bld) [#/Vol] 2.50 10*3/uL Normal 1.0-4.8 [facility] Comment on above: Performed By: #### C DP, CP, TSHX #### [facility] [address] [place] [address] Car Shunter: Milly Truong MD #### LIPR, GLYHGB, URNMAB #### [place] [address] [place], [place] [phone] Car Shunter: Brice Jovel MD Lymphocytes/100 WBC (Bld) 30 % Normal 15-40 [facility] Comment on above: Performed By: #### C DP, CP, TSHX #### [facility] [address] [place], [place] [id number] Car Shunter: Milly Truong MD #### LIPR, GLYHGB, URNMAB #### [address] [place] [place], [place] 1968108 Car Shunter: Brice Jovel MD MCH (RBC) [Entitic mass] 29.1 pg Normal 26-34 [facility] Comment on above: Performed By: #### C DP, CP, TSHX #### [facility] [address] [place] [id number] ( Car Shunter: Milly Truong MD #### LIPR, GLYHGB, URNMAB #### [address] [id number] Car Shunter: Brice Jovel MD MCHC (RBC) [Mass/Vol] 34.8 g/dL Normal 31-37 [facility] Comment on above: Performed By: #### C DP, CP, TSHX #### [facility] [address] [place] [address] Car Shunter: Milly Truong MD #### LIPR, GLYHGB, URNMAB #### [address] [place], [place] [phone] Car Shunter: Brice Jovel MD MCV (RBC) [Entitic vol] 83.8 fL Normal 80-100 [facility] Comment on above: Performed By: #### C DP, CP, TSHX #### [facility] [address] [place] [address] Car Shunter: Milly Truong MD #### LIPR, GLYHGB, URNMAB #### [address] [id number] Car Shunter: Brice Jovel MD Monocytes (Bld) [#/Vol] 0.20 10*3/uL Normal 0.0-1.0 [facility] Comment on above: Performed By: #### C DP, CP, TSHX #### [facility] [address] [place], [place] [phone] Car Shunter: Milly Truong MD #### LIPR, GLYHGB, URNMAB #### [place] [phone] Car Shunter: Brice Jovel MD Monocytes/100 WBC (Bld) 2 % Low 4-8 [facility] Comment on above: Performed By: #### C DP, CP, TSHX #### [facility] [address] [place] [id number] ( Car Shunter: Milly Truong MD #### LIPR, GLYHGB, URNMAB #### [address] [phone] Car Shunter: Brice Jovel MD Neutrophil (Seg) 66 % Normal 47-75 [facility] Comment on above: Performed By: #### C DP, CP, TSHX #### [facility] [address] [place] [phone] Car Shunter: Milly Truong MD #### LIPR, GLYHGB, URNMAB #### [address] [phone] Car Shunter: Brice Jovel MD Platelets (Bld) [#/Vol] 306 10*3/uL Normal 140-450 [facility] Comment on above: Performed By: #### C DP, CP, TSHX #### [facility] [address] [place] [address] Car Shunter: Milly Truong MD #### LIPR, GLYHGB, URNMAB #### [facility] [address] [place], [place] [phone] Car Shunter: Brice Jovel MD RBC (Bld) [#/Vol] 5.45 10*6/uL High 4.0-5.2 [facility] Comment on above: Performed By: #### C DP, CP, TSHX #### [facility] [address] [place], [place] [phone] Car Shunter: Milly Truong MD #### LIPR, GLYHGB, URNMAB #### [address] [place] [place], [place] [phone] Car Shunter: Brice Jovel MD WBC (Bld) [#/Vol] 8.3 10*3/uL Normal 3.5-11.0 [facility] Comment on above: Performed By: #### C RAY CP, TSHX #### [facility] [address] [place] [address] Car Shunter: Milly Truong MD #### LIPR, GLYHGB, URNMAB #### [address] [place] [place], [place] [phone] Car Shunter: Brice Jovel MD Comp Metabolic Profon 2021 (cont.) Normal [facility] Comment on above: Result Comment: Aver age GFR for 20-29 years old: 116 mL/min/1.73sq m Chronic Kidney Disease: <60 mL/min/1.73sq m Kidney failure: <15 mL/min/1.73sq m eGFR calculated using average adult body mass. Additional eGFR calculator available at: http://www.[employer]/multiple_crcl_2012.htm Performed By: #### C DP, CP, TSHX #### [facility] [address] [place] [phone] Car Shunter: Milly Truong MD #### LIPR, GLYHGB, URNMAB #### [address] [place], [place] [phone] Car Shunter: Brice Jovel MD Albumin [Mass/Vol] 4.3 g/dL Normal 3.5-5.2 [facility] Comment on above: Performed By: #### C DP, CP, TSHX #### [facility] [address] [place] [address] Car Shunter: Milly Truong MD #### LIPRebecca, GLYHGB, URNMAB #### [address] [phone] Car Shunter: Brice Jovel MD Alkaline Phos 106 U/L High 35-104 [facility] Comment on above: Performed By: #### C DP, CP, TSHX #### [facility] [address] [place] [address] Car Shunter: Milly Truong MD #### JAIMEE, GLYHGB, URNMAB #### [address] [phone] Car Shunter: Brice Jovel MD ALT [Catalytic activity/Vol] 19 U/L Normal 5-33 [facility] Comment on above: Performed By: #### C DP, CP, TSHX #### [facility] [address] [place] [address] Car Shunter: Milly Truong MD #### LIPR, GLYHGB, URNMAB #### [address] [phone] Car Shunter: Brice Jovel MD Anion gap [Moles/Vol] 13 mmol/L Normal 9-17 [facility] Comment on above: Performed By: #### C DP, CP, TSHX #### [facility] [address] [place], [place] [phone] Car Shunter: Milly Truong MD #### LIPR, GLYHGB, URNMAB #### [address] [phone] Car Shunter: Brice Jovel MD AST [Catalytic activity/Vol] 12 U/L Normal <32 [facility] Comment on above: Performed By: #### C DP, CP, TSHX #### [facility] [address] [place], [place] [phone] Car Shunter: Milly Truong MD #### LIPRebecca, GLYHGB, URNMAB #### [address] [id number] Car Shunter: Brice Jovel MD Bilirubin [Mass/Vol] 0.37 mg/dL Normal 0.30-1.20 [facility] Comment on above: Performed By: #### C DP, CP, TSHX #### [facility] [address] [place], [place] [phone] Car Shunter: Milly Truong MD #### LIPRebecca, GLYHGB, URNMAB #### [address] [phone] Car Shunter: Brice Jovel MD BUN/CRE Ratio 17 Normal 9-20 [facility] Comment on above: Performed By: #### C DP, CP, TSHX #### [facility] [address] [place], [place] [phone] Car Shunter: Milly Truong MD #### LIPR, GLYHGB, URNMAB #### [address] [phone] Car Shunter: Brice Jovel MD Calcium [Mass/Vol] 9.4 mg/dL Normal 8.6-10.4 [facility] Comment on above: Performed By: #### C DP, CP, TSHX #### [facility] [address] [place], [place] [phone] Car Shunter: Milly Truong MD #### LIPR, GLYHGB, URNMAB #### [facility] [address] [place], [place] [phone] Car Shunter: Brice Jovel MD Chloride [Moles/Vol] 94 mmol/L Low 98-107 [facility] Comment on above: Performed By: #### C DP, CP, TSHX #### [facility] [address] [place], [place] [phone] Car Shunter: Milly Truong MD #### LIPR, GLYHGB, URNMAB #### [address] [phone] Car Shunter: Brice Jovel MD CO2 [Moles/Vol] 26 mmol/L Normal 20-31 [facility] Comment on above: Performed By: #### C DP, CP, TSHX #### [facility] [address] [place], [place] [phone] Car Shunter: Milly Truong MD #### LIPR, GLYHGB, URNMAB #### [address] [phone] Car Shunter: Brice Jovel MD Creatinine [Mass/Vol] 0.52 mg/dL Normal 0.50-0.90 [facility] Comment on above: Performed By: #### C DP, CP, TSHX #### [facility] [address] [place], [place] [phone] Car Shunter: Milly Truong MD #### LIPR, GLYHGB, URNMAB #### [place] [address] [place], [place] [phone] Car Shunter: Brice Jovel MD GFR, Amer >60 Normal >60 [facility] Comment on above: Performed By: #### C DP, CP, TSHX #### [facility] [address] [place], [place] [phone] Car Shunter: Milly Truong MD #### LIPR, GLYHGB, URNMAB #### [place] [place], [place] [phone] Car Shunter: Brice Jovel MD GFR,non Amer >60 Normal >60 [facility] Comment on above: Performed By: #### C DP, CP, TSHX #### [facility] [address] [place], [place] [phone] Car Shunter: Milly Truong MD #### LIPR, GLYHGB, URNMAB #### [place] [address] [place], [place] 1085108 Car Shunter: Brice Jovel MD Glucose [Mass/Vol] 291 mg/dL High 70-99 [facility] Comment on above: Performed By: #### C DP, CP, TSHX #### [facility] [address] [place], [place] [phone] Car Shunter: Milly Truong MD #### LIPR, GLYHGB, URNMAB #### [address] [place] [place], [place] [phone] Car Shunter: Brice Jovel MD Potassium [Moles/Vol] 3.7 mmol/L Normal 3.7-5.3 [facility] Comment on above: Performed By: #### C DP, CP, TSHX #### [facility] [address] [place] [address] Car Shunter: Milly Truong MD #### LIPR, GLYHGB, URNMAB #### [address] [place], [place] [phone] Car Shunter: Brice Jovel MD Protein [Mass/Vol] 8.0 g/dL Normal 6.4-8.3 [facility] Comment on above: Performed By: #### C DP, CP, TSHX #### [facility] [address] [place], [place] [phone] Car Shunter: Milly Truong MD #### LIPR, GLYHGB, URNMAB #### [address] [phone] Car Shunter: Brice Jovel MD Sodium [Moles/Vol] 133 mmol/L Low 135-144 [facility] Comment on above: Performed By: #### C DP, CP, TSHX #### [facility] [address] [place] [phone] Car Shunter: Milly Truong MD #### LIPR, GLYHGB, URNMAB #### [address] [phone] Car Shunter: Brice Jovel MD Urea nitrogen [Mass/Vol] 9 mg/dL Normal 6-20 [facility] Comment on above: Performed By: #### C DP, CP, TSHX #### [facility] [address] [place] [phone] Car Shunter: Milly Truong MD #### LIPR, GLYHGB, URNMAB #### [address] [phone] Car Shunter: Brice Jovel MD TSH w/reflex to FT4on 2021 TSH Qn 0.65 m[IU]/L Normal 0.30-5.00 [facility] Comment on above: Performed By: #### C DP, CP, TSHX #### [facility] [address] [place] [phone] Car Shunter: Milly Truong MD #### LIPR, GLYHGB, URNMAB #### [address] [id number] Car Shunter: Brice Jovel MD Patient Educationon 08-02-19 Patient Education Endocrinology Diabetes Mellitus and Exercise Exercising regularly is important for your overall health, especially when you have diabetes (diabetes mellitus). Exercising is not only about losing weight. It has many other health benefits, such as increasing muscle strength and bone density and reducing body fat and stress. This leads to improved fitness, flexibility, and endurance, all of which result in better overall health. Exercise has additional benefits for people with diabetes, including: ? Reducing appetite. ? Helping to lower and control blood glucose. ? Lowering blood pressure. ? Helping to control amounts of fatty substances (lipids) in the blood, such as cholesterol and triglycerides. ? Helping the body to respond better to insulin (improving insulin sensitivity). ? Reducing how much insulin the body needs. ? Decreasing the risk for heart disease by: ? Lowering cholesterol and triglyceride levels. ? Increasing the levels of good cholesterol. ? Lowering blood glucose levels. What is my activity plan? Your health care provider or certified prosthetist can help you make a plan for the type and frequency of exercise (activity plan) that works for you. Make sure that you: ? Do at least 150 minutes of moderate-intensity or vigorous-intensity exercise each week. This could be brisk walking, biking, or water aerobics. ? Do stretching and strength exercises, such as yoga or weightlifting, at least 2 times a week. ? Spread out your activity over at least 3 days of the week. ? Get some form of physical activity every day. ? Do not go more than 2 days in a row without some kind of physical activity. ? Avoid being inactive for more than 30 minutes at a time. Take frequent breaks to walk or stretch. ? Choose a type of exercise or activity that you enjoy, and set realistic goals. ? Start slowly, and gradually increase the intensity of your exercise over time. What do I need to know about managing my diabetes? ? Check your blood glucose before and after exercising. ? If your blood glucose is 240 mg/dL (13.3 mmol/L) or higher before you exercise, check your urine for ketones. If you have ketones in your urine, do not exercise until your blood glucose returns to normal. ? If your blood glucose is 100 mg/dL (5.6 mmol/L) or lower, eat a snack containing 15?20 grams of carbohydrate. Check your blood glucose 15 minutes after the snack to make sure that your level is above 100 mg/dL (5.6 mmol/L) before you start your exercise. ? Know the symptoms of low blood glucose (hypoglycemia) and how to treat it. Your risk for hypoglycemia increases during and after exercise. Common symptoms of hypoglycemia can include: ? Hunger. ? Anxiety. ? Sweating and feeling clammy. ? Confusion. ? Dizziness or feeling light-headed. ? Increased heart rate or palpitations. ? Blurry vision. ? Tingling or numbness around the mouth, lips, or tongue. ? Tremors or shakes. ? Irritability. ? Keep a rapid-acting carbohydrate snack available before, during, and after exercise to help prevent or treat hypoglycemia. ? Avoid injecting insulin into areas of the body that are going to be exercised. For example, avoid injecting insulin into: ? The arms, when playing tennis. ? The legs, when jogging. ? Keep records of your exercise habits. Doing this can help you and your health care provider adjust your diabetes management plan as needed. Write down: ? Food that you eat before and after you exercise. ? Blood glucose levels before and after you exercise. ? The type and amount of exercise you have done. ? When your insulin is expected to peak, if you use insulin. Avoid exercising at times when your insulin is peaking. ? When you start a new exercise or activity, work with your health care provider to make sure the activity is safe for you, and to adjust your insulin, medicines, or food intake as needed. ? Drink plenty of water while you exercise to prevent dehydration or heat stroke. Drink enough fluid to keep your urine clear or pale yellow. Summary ? Exercising regularly is important for your overall health, especially when you have diabetes (diabetes mellitus). ? Exercising has many health benefits, such as increasing muscle strength and bone density and reducing body fat and stress. ? Your health care provider or certified prosthetist can help you make a plan for the type and frequency of exercise (activity plan) that works for you. ? When you start a new exercise or activity, work with your health care provider to make sure the activity is safe for you, and to adjust your insulin, medicines, or food intake as needed. This information is not intended to replace advice given to you by your health care provider. Make sure you discuss any questions you have with your health care provider. Document Released: 08/15/2004 Document Revised: 12/18/2017 Document Reviewe (more content not included)... Normal [facility] Blood Pressure Cuff Sizeon 0 01-04-2021 Fall risk assessment a) No falls within the last year [facility] Work Phone: Tobacco use status [facility] a) Yes [facility] Work Phone: Blood Pressure Cuff Size Adult [facility] Work Phone: Blood Pressure Cuff Size Yes [facility] Work Phone: Blood Pressure Cuff Sizeon 0 11-02-2020 Fall risk assessment a) No falls within the last year [facility] Work Phone: Tobacco use status [facility] a) Yes [facility] Work Phone: Blood Pressure Cuff Size Adult [facility] Work Phone: Blood Pressure Cuff Size a) Yes [facility] Work Phone: Acetaminophen Level, Serumon 10-23-2020 Acetaminophen [Mass/Vol] ug/mL See Below [facility] Work Phone: Comment on above: Reference Range: 10. 0 - 30.0 Acetylsalicylic Acid Level, Serumon 10-23-2020 Salicylates [Mass/Vol] mg/dL 4 - 20 [facility] Work Phone: Alcohol, Serumon 10-23-2020 Ethanol [Mass/Vol] mg/dL [facility] Work Phone: Comment on above: FOR MEDICAL USE ONLY . .REF VALUES <10 Complete Blood Count + Diffe rentialon 10-23-2020 Basophils/100 WBC (Bld) 0.8 % 0.0 - 2.0 [facility] Work Phone: Erythrocyte distribution width (RBC) [Ratio] 12.7 % See Below [facility] Work Phone: Comment on above: Reference Range: 11. 5 - 14.5 Hematocrit (Bld) [Volume fraction] 44.6 % See Below [facility] Work Phone: Comment on above: Reference Range: 36. 0 - 46.0 Hemoglobin (Bld) [Mass/Vol] 15.2 g/dL See Below [facility] Work Phone: Comment on above: Reference Range: 12. 0 - 16.0 Lymphocytes/100 WBC (Bld) 23.6 % See Below [facility] Work Phone: Comment on above: Reference Range: 13. 0 - 44.0 MCHC (RBC) [Mass/Vol] 34.0 g/dL See Below [facility] Work Phone: Comment on above: Reference Range: 32. 0 - 36.0 MCV (RBC) [Entitic vol] 85 fL 80 - 100 [facility] Work Phone: Monocytes/100 WBC (Bld) 4.5 % 2.0 - 10.0 [facility] Work Phone: Neutrophils/100 WBC (Bld) 70.1 % See Below [facility] Work Phone: Comment on above: Reference Range: 40. 0 - 80.0 Platelets (Bld) [#/Vol] 245 10*3/uL 150 - 450 [facility] Work Phone: RBC (Bld) [#/Vol] 5.24 {x10E12/L} above high threshold See Below [facility] Work Phone: Comment on above: Reference Range: 4.0 0 - 5.20 WBC (Bld) [#/Vol] 9.7 10*3/uL 4.4 - 11.3 [facility] Work Phone: Complete Blood Count + Differential 0.10 {x10E9/L} See Below [facility] Work Phone: Comment on above: Reference Range: 0.0 0 - 0.10 Reference Range: 0.0 0 - 0.70 Complete Blood Count + Differential 0.40 {x10E9/L} See Below [facility] Work Phone: Comment on above: Reference Range: 0.1 0 - 1.00 Complete Blood Count + Differential 2.30 {x10E9/L} See Below [facility] Work Phone: Comment on above: Reference Range: 1.2 0 - 4.80 Complete Blood Count + Differential 6.80 {x10E9/L} See Below [facility] Work Phone: Comment on above: Reference Range: 1.2 0 - 7.70 Percent differential counts (%) should be interpreted in the context of the absolute cell counts (cells/L). Complete Blood Count + Differential 1.0 % 0.0 - 6.0 [facility] Work Phone: Coronavirus 2019 RNA by PCR, Symptomaticon 10-23-2020 Coronavirus 2019 RNA by PCR, Symptomatic Not detected Normal See Below [facility] Work Phone: Comment on above: SOURCE: Nasal, Nasop haryngealReference Range: Not Detected.This test has received FDA Emergency Use Authorization (EUA) and has been verified by [facility]. This test is only authorized for the duration of time that circumstances exist to justify the authorization of the emergency use of in vitro diagnostic tests for the detection of SARS-CoV-2 virus and/or diagnosis of COVID-19 infection under section 564(b)(1) of the Act, 21 U.S.C. 360bbb-3(b)(1), unless the authorization is terminated or revoked sooner. [facility] is certified under CLIA-88 as qualified to perform high complexity testing. Testing is performed in the [facility] laboratory located at [address] [place] [address].SARS-CoV-2/Flu/RSV Multiplex Test: Fact sheet for providers: https://www.fda.gov/media/674374/downloadFact sheet for patients: https://www.fda.gov/media/757024/download Laboratory - Chemistry and C hemistry - challengeon 10-23-2020 Albumin BCP dye [Mass/Vol] 4.1 g/dL 3.4 - 5.0 [facility] Work Phone: ALP [Catalytic activity/Vol] 107 U/L 33 - 110 [facility] Work Phone: ALT With P-5'-P [Catalytic activity/Vol] 26 U/L 7 - 45 [facility] Work Phone: Comment on above: Patients treated wit h Sulfasalazine may generate falsely decreased results for ALT. Anion gap [Moles/Vol] 13 mmol/L 10 - 20 [facility] Work Phone: AST With P-5'-P [Catalytic activity/Vol] 14 U/L 9 - 39 [facility] Work Phone: Bilirubin [Mass/Vol] 0.4 mg/dL 0.0 - 1.2 [facility] Work Phone: Calcium [Mass/Vol] 9.4 mg/dL 8.6 - 10.3 [facility] Work Phone: Chloride [Moles/Vol] 98 mmol/L 98 - 107 [facility] Work Phone: CO2 [Moles/Vol] 26 mmol/L 21 - 32 [facility] Work Phone: Creatinine [Mass/Vol] 0.54 mg/dL See Below [facility] Work Phone: Comment on above: Reference Range: 0.5 0 - 1.05 Glucose [Mass/Vol] 345 mg/dL above high threshold 74 - 99 [facility] Work Phone: Potassium [Moles/Vol] 4.0 mmol/L 3.5 - 5.3 [facility] Work Phone: Protein [Mass/Vol] 7.5 g/dL 6.4 - 8.2 [facility] Work Phone: Sodium [Moles/Vol] 133 mmol/L below low threshold 136 - 145 [facility] Work Phone: Urea nitrogen [Mass/Vol] 8 mg/dL 6 - 23 [facility] Work Phone: Laboratory - Drug toxicology on 10-23-2020 Amphetamines Screen Ql (U) Negative NEGATIVE [facility] Work Phone: Comment on above: CUTOFF LEVEL: 500 NG /ML Cross-reactivity has been reported with high concentrations of the following drugs: buproprion, chloroquine, chlorpromazine, ephedrine, mephentermine, fenfluramine, phentermine, phenylpropanolamine, pseudoephedrine, and propranolol. Barbiturates Screen Ql (U) Negative NEGATIVE [facility] Work Phone: Comment on above: CUTOFF LEVEL: 200 NG /ML Benzodiazepines Ql (U) Negative NEGATIVE [facility] Work Phone: Comment on above: CUTOFF LEVEL: 200 NG /ML Benzoylecgonine Screen Ql (U) Negative NEGATIVE [facility] Work Phone: Comment on above: CUTOFF LEVEL: 150 NG /ML Cannabinoids Screen Ql (U) Negative NEGATIVE [facility] Work Phone: Comment on above: CUTOFF LEVEL: 50 NG/ ML Methadone Screen Ql (U) Negative NEGATIVE [facility] Work Phone: Comment on above: CUTOFF LEVEL: 150 NG /ML The metabolite J-kfrbs-asuohuqxzewrrq (LAAM) is not detected by this method in concentrations that would be found in the urine of patients on LAAM therapy. Opiates Screen Ql (U) Negative NEGATIVE [facility] Work Phone: Comment on above: CUTOFF LEVEL: 300 NG /ML The opiate screen does not detect fentanyl, meperidine, or tramadol. Oxycodone is not consistently detected (refer to Oxycodone Screen, Urine result). oxyCODONE+oxyMORphone Screen Ql (U) Negative NEGATIVE [facility] Work Phone: Comment on above: CUTOFF LEVEL: 100 NG /ML This test will accurately detect both oxycodone and oxymorphone. Phencyclidine Ql (U) Negative NEGATIVE [facility] Work Phone: Comment on above: CUTOFF LEVEL: 25 NG/ ML Cross-reactivity has been reported with dextromethorphan. No Panel Informationon 10-23 >60 >60 [facility] Work Phone: Comment on above: CALCULATIONS OF ASCENCION MATED GFR ARE PERFORMED USING THE MDRD STUDY EQUATION FOR THE IDMS-TRACEABLE CREATININE METHODS. CLIN CHEM 2007;53:766-72 SEE BELOW [facility] Work Phone: Comment on above: Drug screen results are presumptive and should not be used to assess compliance with prescribed medication. Contact the performing [facility] laboratory to add-on definitive confirmatory testing if clinically indicated. .Toxicology screening results are reported qualitatively. The concentration must be greater than or equal to the cutoff to be reported as positive. The concentration at which the screening test can detect an individual drug or metabolite varies. The absence of expected drug(s) and/or drug metabolite(s) may indicate non-compliance, inappropriate timing of specimen collection relative to drug administration, poor drug absorption, diluted/adulterated urine, or limitations of testing. For medical purposes only; not valid for forensic use. .Interpretive questions should be directed to the laboratory medical directors. Radiologyon 10-23-2020 XR Chest Single view Normal [facility] Work Phone: Urinalysison 10-23-2020 Color (U) Straw See Below [facility] Work Phone: Comment on above: Reference Range: STR AW,YELLOW Glucose Ql (U) >=500(3+) Abnormal NEGATIVE [facility] Work Phone: Ketones Ql (U) 5(TRACE) Abnormal NEGATIVE [facility] Work Phone: Leukocyte esterase Test strip Ql (U) MODERATE(2+) Abnormal NEGATIVE [facility] Work Phone: pH (U) 5.0 [pH] 5.0 - 8.0 [facility] Work Phone: Protein (U) [Mass/Vol] Negative NEGATIVE [facility] Work Phone: RBC (U) [#/Vol] Negative NEGATIVE [facility] Work Phone: Specific gravity (U) [Rel density] 1.037 1 above high threshold See Below [facility] Work Phone: Comment on above: Reference Range: 1.0 05 - 1.035 Urinalysis Negative NEGATIVE [facility] Work Phone: Comment on above: CUTOFF LEVEL: 1 NG/M L The performance characteristics of this test have been determined by the individual laboratory site where testing is performed. This test has not been cleared or approved by the FDA; however, the FDA has determined that such clearance is not necessary. Urinalysis <2.0 0.0 - 1.9 [facility] Work Phone: Urinalysis HAZY CLEAR [facility] Work Phone: Urinalysis, Microscopicon Urinalysis, Microscopic 5 {/HPF} [facility] Work Phone: Urinalysis, Microscopic None 0-5 [facility] Work Phone: Urinalysis, Microscopic 19 {/HPF} Abnormal 0-5 [facility] Work Phone: EEG (STANDARD)on 07-19-2020 Srini Medina MD 07/19/2020 4:43 PM [facility] EEG Report Reason for EEG: Spells Summary: This is a 16 channel digital EEG recording. There is a moderately well-developed, moderately well organized background activity with a posterior dominant rhythm of 9-10 hz. Hyperventilation was not done. Photic stimulation produced no driving. Patient became drowsy. No sleep patterns are noted. No clear epileptiform discharges or ictal activity were seen. Impression: This is a normal EEG in the awake and drowsy states. There is no clear electrodiagnostic evidence of a diffuse or focal neurophysiological disturbance. No clear epileptiform discharges or ictal activity was seen. [facility] COVID-19, MOLECULARon 2019 SARS-COV-2 RNA (JANIS) Not Detected Normal Not Detected [facility] Comment on above: Result Comment: This test was performed under the FDA's Emergency Use Authorization (EUA). Testing was performed using the Chato SARS-CoV-2 assay on the Jan[employer] Chato 6800 System. This test has not been approved for use in asymptomatic patients and its performance in this patient population has not been evaluated. Negative results do not rule out the presence of SARS-CoV-2/COVID-19. Fact sheets for this EUA can be found at the following links: For Healthcare Providers: https://www.fda.gov/media/640041/download For Patients: https://www.fda.gov/media/350031/download Performed By: #### L [id number] #### [facility] [address] [place] [address] Regulo Hazel M.D. [id number] Hemoglobin A1Con 01-31-2020 HbA1c (Bld) [Mass fraction] 8.2 % [facility] Work Phone: Comment on above: Diagnosis of Diabete s-Adults Non-Diabetic: < or = 5.6% Increased risk for developing diabetes: 5.7-6.4% Diagnostic of diabetes: > or = 6.5%. Monitoring of Diabetes Age (y) Therapeutic Goal (%) Adults: >18 <7.0 Pediatrics: 13-18 <7.5 7-12 <8.0 0- 6 7.5-8.5 [place] [employer]. Diabetes Care 33(S1), Jun 2009. HbA1c (Bld) [Mass fraction] 189 {MG/DL} [facility] Work Phone: Sedimentation Rateon 020 ESR (Bld) [Velocity] 19 mm/h [facility] Interpretation and review of laboratory results Normal [facility] Complete Blood Count + Diffe rentialon 09-28-2019 Basophils (Bld) [#/Vol] 0.10 {x10E9/L} See Below [facility] Work Phone: Comment on above: Reference Range: 0.0 0 - 0.10 Basophils/100 WBC (Bld) 0.8 % 0.0 - 2.0 [facility] Work Phone: Eosinophils (Bld) [#/Vol] 0.20 {x10E9/L} See Below [facility] Work Phone: Comment on above: Reference Range: 0.0 0 - 0.70 Eosinophils/100 WBC (Bld) 2.1 % 0.0 - 6.0 [facility] Work Phone: Erythrocyte distribution width (RBC) [Ratio] 12.7 % See Below [facility] Work Phone: Comment on above: Reference Range: 11. 5 - 14.5 Hematocrit (Bld) [Volume fraction] 42.0 % See Below [facility] Work Phone: Comment on above: Reference Range: 36. 0 - 46.0 Hemoglobin (Bld) [Mass/Vol] 14.4 g/dL See Below [facility] Work Phone: Comment on above: Reference Range: 12. 0 - 16.0 Lymphocytes (Bld) [#/Vol] 2.20 {x10E9/L} See Below [facility] Work Phone: Comment on above: Reference Range: 1.2 0 - 4.80 Lymphocytes/100 WBC (Bld) 29.7 % See Below [facility] Work Phone: Comment on above: Reference Range: 13. 0 - 44.0 MCHC (RBC) [Mass/Vol] 34.4 g/dL See Below [facility] Work Phone: Comment on above: Reference Range: 32. 0 - 36.0 MCV (RBC) [Entitic vol] 87 fL 80 - 100 [facility] Work Phone: Monocytes (Bld) [#/Vol] 0.40 {x10E9/L} See Below [facility] Work Phone: Comment on above: Reference Range: 0.1 0 - 1.00 Monocytes/100 WBC (Bld) 5.2 % 2.0 - 10.0 [facility] Work Phone: Neutrophils (Bld) [#/Vol] 4.70 {x10E9/L} See Below [facility] Work Phone: Comment on above: Reference Range: 1.2 0 - 7.70 Percent differential counts (%) should be interpreted in the context of the absolute cell counts (cells/L). Neutrophils/100 WBC (Bld) 62.2 % See Below [facility] Work Phone: Comment on above: Reference Range: 40. 0 - 80.0 Platelets (Bld) [#/Vol] 263 {x10E9/L} 150 - 450 [facility] Work Phone: RBC (Bld) [#/Vol] 4.85 {x10E12/L} See Below [facility] Work Phone: Comment on above: Reference Range: 4.0 0 - 5.20 WBC (Bld) [#/Vol] 0.1 {/100_WBC} [facility] Work Phone: WBC (Bld) [#/Vol] 7.5 {x10E9/L} 4.4 - 11.3 [facility] Work Phone: HCG, Beta Quantitativeon HCG.beta subunit Qn m[IU]/mL [facility] Work Phone: Comment on above: Low-level positive H CG results can be seen in early , in gregory- or post-menopausal females due to normal pituitary HCG production, or with analytic interference. Repeat testing in 48-72 hours can aid in assessing for as results should double in this time period. FSH measurement is recommended in gregory- or post-menopausal females as concurrent elevation of FSH can support pituitary production as the source of the HCG elevation.. Total HCG measurement is performed using the [place] Access Immunoassay which detects intact HCG and free beta HCG subunit. This test is not indicated for use as a tumor marker. HCG testing is performed using a different test methodology at [facility] than other [facility]. Direct result comparison should only be made within the same method. REF VALUESNON FEMALE <5MALES <5 Hemoglobin A1Con 09-28-2019 HbA1c (Bld) [Mass fraction] 7.2 % [facility] Work Phone: Comment on above: Diagnosis of Diabete s-Adults Non-Diabetic: < or = 5.6% Increased risk for developing diabetes: 5.7-6.4% Diagnostic of diabetes: > or = 6.5%. Monitoring of Diabetes Age (y) Therapeutic Goal (%) Adults: >18 <7.0 Pediatrics: 13-18 <7.5 7-12 <8.0 0- 6 7.5-8.5 [place] [employer]. Diabetes Care 33(S1), Jun 2009. HbA1c (Bld) [Mass fraction] 160 {MG/DL} [facility] Work Phone: Metabolic Panelon 09-28-2019 Anion gap [Moles/Vol] 11 mmol/L 10 - 20 [facility] Work Phone: Calcium [Mass/Vol] 9.6 mg/dL 8.6 - 10.3 [facility] Work Phone: Chloride [Moles/Vol] 104 mmol/L 98 - 107 [facility] Work Phone: CO2 [Moles/Vol] 26 mmol/L 21 - 32 [facility] Work Phone: Creatinine [Mass/Vol] 0.65 mg/dL See Below [facility] Work Phone: Comment on above: Reference Range: 0.5 0 - 1.05 Glucose [Mass/Vol] 252 mg/dL above high threshold 74 - 99 [facility] Work Phone: Potassium [Moles/Vol] 3.8 mmol/L 3.5 - 5.3 [facility] Work Phone: Sodium [Moles/Vol] 137 mmol/L 136 - 145 [facility] Work Phone: Urea nitrogen [Mass/Vol] 14 mg/dL 6 - 23 [facility] Work Phone: Otheron 09-28-2019 >60 >60 [facility] Work Phone: Comment on above: CALCULATIONS OF ASCENCION MATED GFR ARE PERFORMED USING THE MDRD STUDY EQUATION FOR THE IDMS-TRACEABLE CREATININE METHODS. CLIN CHEM 2007;53:766-72 Thyroidon 09-28-2019 TSH Qn 0.54 {mIU/L} See Below [facility] Work Phone: Comment on above: Reference Range: 0.4 4 - 3.98 Note new pediatric reference range as of 08/12/2019. TSH testing is performed using different testing methodology at [facility] than at other [facility]. Direct result comparisons should only be made within the same method. HCG, Beta Quantitativeon HCG.beta subunit Qn m[IU]/mL [facility] [address] Work Phone: Comment on above: Low-level positive H CG results can be seen in early , in gregory- or post-menopausal females due to normal pituitary HCG production, or with analytic interference. Repeat testing in 48-72 hours can aid in assessing for as results should double in this time period. FSH measurement is recommended in gregory- or post-menopausal females as concurrent elevation of FSH can support pituitary production as the source of the HCG elevation.. Total HCG measurement is performed using the [place] Access Immunoassay which detects intact HCG and free beta HCG subunit. This test is not indicated for use as a tumor marker. HCG testing is performed using a different test methodology at [facility] than other [facility]. Direct result comparison should only be made within the same method. REF VALUESNON FEMALE <5MALES <5 IO HCG, Urine Test on 05-13-2019 HCG ( test) Ql (U) Negative [facility] [address] [employer] Work Phone: Comment on above: MEDLINE [id number] P 10/06/2020 URINALYSISon 03-21-2019 Bacteria Auto Ql (U) None Seen None Se en /hpf [facility] Bilirubin Ql (U) Negative Negative [facility] th Clarity Refractometry automated (U) Hazy Abnormal Clear [facility] Color (U) Yellow Colorless, Yellow [facility] Epithelial cells.squamous Auto (Urine sed) [#/Area] 4 [facility] Glucose Auto test strip (U) [Mass/Vol] Negative Negative mg/dL [facility] Hemoglobin Auto test strip Ql (U) Negative Negative [facility] Interpretation and review of laboratory results Abnormal [facility] Ketones (U) [Mass/Vol] Negative Negative mg/dL [facility] Leukocyte esterase Auto test strip Ql (U) Trace Abnormal Negative [facility] Mucus Auto (Urine sed) [#/Area] Rare None Seen, Rare /lpf [facility] Nitrite Auto test strip Ql (U) Negative Negative [facility] pH (U) 6.0 [pH] [facility] Protein (U) [Mass/Vol] Negative Negative mg/dL [facility] RBC Auto (Urine sed) [#/Area] <1 [facility] Specific gravity (U) [Rel density] 1.020 [facility] [place] Auto (Urine sed) [#/Area] Present Abnormal None Seen /hpf [facility] Urobilinogen (U) [Mass/Vol] >=4.0 Abnormal <2.0 mg/dL [facility] WBC Auto (Urine sed) [#/Area] 1 [facility] Microscopic examinat ion is performed on all urinalysis samples and only positive findings are reported. The test for blood on the chemical analytic portion of urinalysis may also be positive due to hemoglobinuria and myoglobinuria and if red blood cells are present they are quantified by microscopic examination. [facility] hCG, Blood,QUALitativeon Beta HCG ( test) Ql Negative Negative [facility] Interpretation and review of laboratory results Normal [facility] Negative: The result is less than or equal to 5 mIU/mL of HCG. [facility] Alcohol, Medicalon 9 Ethanol [Mass/Vol] mg/dL <10.00 mg/dL [facility] Interpretation and review of laboratory results Normal [facility] DRUGS OF ABUSE SCREEN, URINE on 03-11-2019 Amphetamines Ql (U) None Detected None Detected [facility] Comment on above: Urine Amphetamine Cu toff: < 1000 ng/mL = None Detected Barbiturates Screen Ql (U) None Detected None Detected [facility] Comment on above: Urine Barbiturates C utoff: < 200 ng/mL = None Detected Benzodiazepines Ql (U) None Detected None Detected [facility] Comment on above: Urine Benzodiazepine Cutoff: < 200 ng/mL = None Detected Cannabinoids Screen Ql (U) None Detected None Detected [facility] Comment on above: Urine Cannabinoids C utoff: < 50 ng/mL = None Detected Cocaine Ql (U) None Detected None Detected [facility] Comment on above: Urine Cocaine Cutoff : < 300 ng/mL = None Detected Interpretation and review of laboratory results Normal [facility] Methadone Screen Ql (U) None Detected None Detected [facility] Comment on above: Urine Methadone Cuto ff: < 300 ng/mL = None Detected Opiates Screen Ql (U) None Detected None Detected [facility] Comment on above: Urine Opiates Cutoff : < 300 ng/mL = None Detected Oxycodone Ql (U) None Detected None Detected [facility] Comment on above: Urine Oxycodone Cuto ff: < 100 ng/mL = None Detected Screen results shoul d be used for treatment purposes only. [facility] Otheron 03-11-2019 Extra Tube Hold for add-ons. [facility] Comment on above: Auto resulted. URINALYSISon 03-11-2019 Bacteria Auto Ql (U) None Seen None Se en /hpf [facility] Bilirubin Ql (U) Negative Negative [facility] th Clarity Refractometry automated (U) Hazy Abnormal Clear [facility] Color (U) Yellow Colorless, Yellow [facility] Epithelial cells.squamous Auto (Urine sed) [#/Area] 6 High [facility] Glucose Auto test strip (U) [Mass/Vol] Negative Negative mg/dL [facility] Hemoglobin Auto test strip Ql (U) Negative Negative [facility] Interpretation and review of laboratory results Abnormal [facility] Ketones (U) [Mass/Vol] Trace Abnormal Negative mg/dL [facility] Leukocyte esterase Auto test strip Ql (U) Negative Negative [facility] Mucus Auto (Urine sed) [#/Area] Few Abnormal None Seen, Rare /lpf [facility] Nitrite Auto test strip Ql (U) Negative Negative [facility] pH (U) 5.0 [pH] [facility] Protein (U) [Mass/Vol] Negative Negative mg/dL [facility] RBC Auto (Urine sed) [#/Area] 2 [facility] Specific gravity (U) [Rel density] 1.029 High [facility] Transitional cells Computer assisted (U) [#/Area] <1 [facility] Urobilinogen (U) [Mass/Vol] 2.0 mg/dL Abnormal <2.0 [facility] WBC Auto (Urine sed) [#/Area] 2 [facility] Microscopic examinat ion is performed on all urinalysis samples and only positive findings are reported. The test for blood on the chemical analytic portion of urinalysis may also be positive due to hemoglobinuria and myoglobinuria and if red blood cells are present they are quantified by microscopic examination. [facility] URINE HCG QUALon 03-11-2019 Beta HCG ( test) Ql (U) Negative Normal NEGATIVE [facility] Comment on above: Performed By: #### U HCGT #### Testing performed at [facility] [address] [place] [address] Urine Pregnancyon 03-11-2019 HCG ( test) Ql (U) Negative Negative [facility] Interpretation and review of laboratory results Normal [facility] Alcohol, Medicalon 9 Ethanol [Mass/Vol] mg/dL <10.00 mg/dL [facility] Interpretation and review of laboratory results Normal [facility] DRUGS OF ABUSE SCREEN, URINE on 02-10-2019 Amphetamines Ql (U) None Detected None Detected [facility] Comment on above: Urine Amphetamine Cu toff: < 1000 ng/mL = None Detected Barbiturates Screen Ql (U) None Detected None Detected [facility] Comment on above: Urine Barbiturates C utoff: < 200 ng/mL = None Detected Benzodiazepines Ql (U) None Detected None Detected [facility] Comment on above: Urine Benzodiazepine Cutoff: < 200 ng/mL = None Detected Cannabinoids Screen Ql (U) None Detected None Detected [facility] Comment on above: Urine Cannabinoids C utoff: < 50 ng/mL = None Detected Cocaine Ql (U) None Detected None Detected [facility] Comment on above: Urine Cocaine Cutoff : < 300 ng/mL = None Detected Interpretation and review of laboratory results Normal [facility] Methadone Screen Ql (U) None Detected None Detected [facility] Comment on above: Urine Methadone Cuto ff: < 300 ng/mL = None Detected Opiates Screen Ql (U) None Detected None Detected [facility] Comment on above: Urine Opiates Cutoff : < 300 ng/mL = None Detected Oxycodone Ql (U) None Detected None Detected [facility] Comment on above: Urine Oxycodone Cuto ff: < 100 ng/mL = None Detected Screen results shoul d be used for treatment purposes only. [facility] Otheron 02-10-2019 Extra Tube Hold for add-ons. [facility] Comment on above: Auto resulted. Urine Pregnancyon 02-10-2019 HCG ( test) Ql (U) Negative Negative [facility] Interpretation and review of laboratory results Normal [facility] Hemoglobin A1con 01-01-2019 HbA1c (Bld) [Mass fraction] 7.1 % High 4.3-5.6 [facility] Comment on above: Performed By: #### H BA1C #### [facility] Routine Lab [address] [place], [place] [id number] HbA1c (Bld) [Mass fraction] 157 mg/dL Normal [facility] Comment on above: Performed By: #### H BA1C #### [facility] Routine Lab [address] [place], [place] [id number] URINALYSISon 10-07-2018 Bacteria Auto Ql (U) Rare Abnormal None Se en /hpf [facility] Bilirubin Ql (U) Negative Negative [facility] Clarity Refractometry automated (U) Hazy Abnormal Clear [facility] Color (U) Yellow Colorless, Yellow [facility] Epithelial cells.squamous Auto (Urine sed) [#/Area] 8 High [facility] Glucose Auto test strip (U) [Mass/Vol] 150 Abnormal Negative mg/dL [facility] Hemoglobin Auto test strip Ql (U) Negative Negative [facility] Interpretation and review of laboratory results Abnormal [facility] Ketones (U) [Mass/Vol] >=80 Abnormal Negative mg/dL [facility] Leukocyte esterase Auto test strip Ql (U) Small Abnormal Negative [facility] Nitrite Auto test strip Ql (U) Negative Negative [facility] pH (U) 5.0 [pH] [facility] Protein (U) [Mass/Vol] Negative Negative mg/dL [facility] RBC Auto (Urine sed) [#/Area] 2 [facility] Specific gravity (U) [Rel density] 1.014 [facility] Urobilinogen (U) [Mass/Vol] <2.0 <2.0 mg/dL [facility] WBC Auto (Urine sed) [#/Area] 17 High [facility] Microscopic examinat ion is performed on all urinalysis samples and only positive findings are reported. The test for blood on the chemical analytic portion of urinalysis may also be positive due to hemoglobinuria and myoglobinuria and if red blood cells are present they are quantified by microscopic examination. [facility] Urine Pregnancyon 10-07-2018 HCG ( test) Ql (U) Negative Negative [facility] Interpretation and review of laboratory results Normal [facility] XR CHEST AP/PA AND LATon Cholesterol [Mass/Vol] 1. No acute cardiopulmonary process. 2. Cholecystectomy. [facility] Workstation ID: [id number] [facility] EXAMINATION: XR CHES T AP/PA AND LAT 10/07/2018 HISTORY: ORDERING SYSTEM PROVIDED HISTORY: cough, TECHNOLOGIST PROVIDED HISTORY: Reason for exam: cough Illness/Other Cancer History: na Surgery, RadiationHistory: na Encounter Type: Initial Additional signs and symptoms: . ORDERING SYSTEM PROVIDED DIAGNOSIS CODES: COMPARISON STUDY: PA and lateral chest 10/04/2018. FINDINGS: A total of 3 images were obtained. The cardiomediastinal contours are stable and within normal limits. No dense consolidation, effusion, edema, failure, pneumothorax or acute osseous abnormality noted. The gallbladder is surgically absent. [facility] Interface, Rad In Fu ji Speechq - 10/07/2018 2:37 AM EDT EXAMINATION: XR CHEST AP/PA AND LAT 10/07/2018 HISTORY: ORDERING SYSTEM PROVIDED HISTORY: cough, TECHNOLOGIST PROVIDED HISTORY: Reason for exam: cough Illness/Other Cancer History: na Surgery, RadiationHistory: na Encounter Type: Initial Additional signs and symptoms: . ORDERING SYSTEM PROVIDED DIAGNOSIS CODES: COMPARISON STUDY: PA and lateral chest 10/04/2018. FINDINGS: A total of 3 images were obtained. The cardiomediastinal contours are stable and within normal limits. No dense consolidation, effusion, edema, failure, pneumothorax or acute osseous abnormality noted. The gallbladder is surgically absent. IMPRESSION: 1. No acute cardiopulmonary process. 2. Cholecystectomy. [facility] Workstation ID: [id number] [facility] POC Glucoseon 10-06-2018 Glucose [Mass/Vol] 228 mg/dL High 65 - 99 mg/dL [facility] Interpretation and review of laboratory results Abnormal [facility] POC Glucoseon 10-05-2018 Glucose [Mass/Vol] 338 mg/dL High 65 - 99 mg/dL [facility] Interpretation and review of laboratory results Abnormal [facility] Glucose [Mass/Vol] 383 mg/dL High 65 - 99 mg/dL [facility] Interpretation and review of laboratory results Abnormal [facility] XR CHEST AP/PA AND LATon No acute cardiopulmonary disease. [employer] (now [employer]) Workstation ID: [id number] [facility] CLINICAL HISTORY: Shortness of breath. EXAMINATION: PA AND LATERAL CHEST: 10/04/2018. COMPARISON: PA and lateral chest 03/29/2016. FINDINGS: Two views in 3 films are provided which demonstrate there is some motion artifact on the AP view chest. The visualized osseous structures, heart, mediastinum are normal. The aorta has normal contour. Lungs appear clear. There is no congestive heart failure or pneumothorax. [facility], Rad In Fu ji Speechq - 10/05/2018 1:48 AM EDT CLINICAL HISTORY: Shortness of breath. EXAMINATION: PA AND LATERAL CHEST: 10/04/2018. COMPARISON: PA and lateral chest 03/29/2016. FINDINGS: Two views in 3 films are provided which demonstrate there is some motion artifact on the AP view chest. The visualized osseous structures, heart, mediastinum are normal. The aorta has normal contour. Lungs appear clear. There is no congestive heart failure or pneumothorax. IMPRESSION: No acute cardiopulmonary disease. [employer] ([employer] Workstation ID: [id number] [facility] Beta-Hydroxybutyrateon 10-04 Beta hydroxybutyrate [Moles/Vol] 0.2 mmol/L 0 - 0.3 mmol/L [facility] Interpretation and review of laboratory results Normal [facility] CBC WITH AUTO DIFFERENTIALon 10-04-2018 Basophils (Bld) [#/Vol] 0.04 10*3/uL [facility] Basophils/100 WBC (Bld) 0.4 % [facility] Eosinophils (Bld) [#/Vol] 0.23 10*3/uL [facility] Eosinophils/100 WBC (Bld) 2.6 % [facility] Erythrocyte distribution width (RBC) [Entitic vol] 12.2 % 11.6 - 14.8 % [facility] Hematocrit (Bld) [Volume fraction] 42.3 % 36 - 46 % [facility] Hemoglobin (Bld) [Mass/Vol] 14.5 g/dL 12 - 16 g/dL [facility] Immature granulocytes (Bld) [#/Vol] 0.03 10*3/uL [facility] Immature granulocytes/100 WBC (Bld) 0.30 % [facility] Comment on above: The IG parameter is the percentage of metamyelocytes, myelocytes, and promyelocytes. Lymphocytes (Bld) [#/Vol] 1.76 10*3/uL [facility] Lymphocytes/100 WBC (Bld) 19.8 % [facility] MCH (RBC) [Entitic mass] 28.3 pg 26 - 34 pg [facility] MCHC (RBC) [Mass/Vol] 34.3 g/dL 31 - 37 g/dL [facility] MCV (RBC) [Entitic vol] 82.6 fL 80 - 100 fL [facility] Monocytes (Bld) [#/Vol] 0.47 10*3/uL [facility] Monocytes/100 WBC (Bld) 5.3 % [facility] Neutrophils (Bld) [#/Vol] 6.37 10*3/uL [facility] Neutrophils/100 WBC (Bld) 71.6 % [facility] Nucleated RBC (Bld) [#/Vol] 0.00 10*3/uL [facility] Nucleated RBC/100 WBC (Bld) [Ratio] 0.0 % [facility] Platelet mean volume (Bld) [Entitic vol] 10.4 fL 9 - 15.5 fL [facility] Platelets (Bld) [#/Vol] 248 10*3/uL [facility] RBC (Bld) [#/Vol] 5.12 10*6/uL [facility] ealth WBC (Bld) [#/Vol] 8.90 10*3/uL [facility] Metabolic Pane saleem 10-04-2018 Albumin [Mass/Vol] 4.0 g/dL 3.2 - 5.2 g/dL [facility] ALP [Catalytic activity/Vol] 90 U/L 40 - 140 U/L [facility] ALT [Catalytic activity/Vol] 28 U/L 14 - 65 U/L [facility] Anion gap [Moles/Vol] 12 mmol/L 10 - 2 0 mmol/L [facility] AST [Catalytic activity/Vol] 14 U/L 0 - 45 U/L [facility] Bilirubin [Mass/Vol] 0.3 mg/dL 0 - 1.3 mg/dL [facility] Calcium [Mass/Vol] 9.0 mg/dL 8.4 - 10. 2 mg/dL [facility] Chloride [Moles/Vol] 102 mmol/L 98 - 10 8 mmol/L [facility] Creatinine [Mass/Vol] 0.86 mg/dL 0.4 - 1.1 mg/dL [facility] GFR/1.73 sq M predicted among non-blacks MDRD (S/P/Bld) [Vol rate/Area] The eGFR should be used for monitoring renal function only and not for medication dosing. [facility] GFR/1.73 sq M.predicted CKD-EPI (S/P/Bld) [Vol rate/Area] 96 >=60 mL/min/1.73 m2 [facility] Glucose [Mass/Vol] 460 mg/dL Critically high 65 - 9 9 mg/dL [facility] HCO3 [Moles/Vol] 26 mmol/L 21 - 32 mmol/L [facility] Potassium [Moles/Vol] 4.1 mmol/L 3.5 - 5.1 mmol/L [facility] Protein [Mass/Vol] 8.0 g/dL 6 - 8 g/dL [facility] alth Sodium [Moles/Vol] 136 mmol/L 135 - 145 mmol/L [facility] Urea nitrogen [Mass/Vol] 14 mg/dL 8 - 25 mg/dL [facility] Urea nitrogen/Creatinine [Mass ratio] 16.3 mg/mg [facility] D-DIMER, QUANTITATIVEon 09-08 Fibrin D-dimer FEU (PPP) [Mass/Vol] 0.31 0.27 - 0.49 mcg/mL FEU [facility] Interpretation and review of laboratory results Normal [facility] A D-dimer concentrat ion of <0.5 micrograms per milliliter FEU is considered a low probability for pulmonary embolus (PE) and deep venous thrombosis (DVT). Results of this test should always be interpreted in conjunction with the patient's medical history,clinical presentation, and other findings. Clinical diagnosis should not be based on the results of the D-dimer alone. [facility] Otheron 10-04-2018 Extra Tube Hold for add-ons. [facility] Comment on above: Auto resulted. Interpretation and review of laboratory results Abnormal [facility] POC ARTERIAL BLOOD GAS PANEL -PULM - RALSon 10-04-2018 Alveolar-arterial oxygen Partial pressure difference 16.2 mm Hg [facility] Base excess Calc (Bld) [Moles/Vol] -0.9 mmol/L [facility] Breath rate setting Ventilator synchronized intermittent mandatory 0 [facility] CO2 (Bld) [Partial pressure] 39.4 mm[Hg] [facility] HCO3 (Bld) [Moles/Vol] 24.0 mmol/L 22 - 26 mmol/L [facility] Hematocrit (BldA) [Volume fraction] 44.4 % 36 - 46 % [facility] Hemoglobin (Bld) [Mass/Vol] 14.5 g/dL 12 - 16 g/dL [facility] Inhaled oxygen concentration 21 % [facility] Oxygen (Bld) [Partial pressure] 83 mm[Hg] [facility] pH (Bld) 7.39 [pH] [facility] SaO2% (BldA) [Mass fraction] 96.8 % 92 - 99 % [facility] Specimen source Nom (Unsp spec) Brachial, right [facility] Tidal volume setting Ventilator 0 [facility] POC Glucoseon 10-04-2018 Glucose [Mass/Vol] 377 mg/dL High 65 - 99 mg/dL [facility] Interpretation and review of laboratory results Abnormal [facility] Glucose [Mass/Vol] 442 mg/dL Critically high 65 - 9 9 mg/dL [facility] Interpretation and review of laboratory results Abnormal [facility] Critical result acte d upon time of test. Test performed at bedside. [facility] URINALYSISon 10-04-2018 Bacteria Auto Ql (U) None Seen None Se en /hpf [facility] Bilirubin Ql (U) Negative Negative [facility] th Clarity Refractometry automated (U) Clear Clear [facility] Color (U) Colorless Colorless, Yellow [facility] Epithelial cells.squamous Auto (Urine sed) [#/Area] 4 [facility] Glucose Auto test strip (U) [Mass/Vol] >=500 Abnormal Negative mg/dL [facility] Hemoglobin Auto test strip Ql (U) Negative Negative [facility] Ketones (U) [Mass/Vol] Negative Negative mg/dL [facility] Leukocyte esterase Auto test strip Ql (U) Negative Negative [facility] Nitrite Auto test strip Ql (U) Negative Negative [facility] pH (U) 7.0 [pH] [facility] Protein (U) [Mass/Vol] Negative Negative mg/dL [facility] RBC Auto (Urine sed) [#/Area] <1 [facility] Specific gravity (U) [Rel density] 1.018 [facility] Urobilinogen (U) [Mass/Vol] <2.0 <2.0 mg/dL [facility] WBC Auto (Urine sed) [#/Area] 1 [facility] Microscopic examinat ion is performed on all urinalysis samples and only positive findings are reported. The test for blood on the chemical analytic portion of urinalysis may also be positive due to hemoglobinuria and myoglobinuria and if red blood cells are present they are quantified by microscopic examination. [facility] Urine Pregnancyon 10-04-2018 HCG ( test) Ql (U) Negative Negative [facility] Interpretation and review of laboratory results Normal [facility] BHCG,QUANTITATIVEon 09-14-19 19 BHCG,QUANTITATIVE 0.00 MIU/ML Normal [facility] Comment on above: Result Comment[facility]: NON FEMALE 0-6 MIU/ML MALE ADULT 0-2 MIU/ML 0-1 WEEK 6-50 MIU/ML 1-2 WEEKS 40-300 MIU/ML 2-3 WEEKS 100-1,000 MIU/ML 3-4 WEEKS 500-6,000 MIU/ML 1-2 MONTHS 5,000-200,000 MIU/ML 2-3 MONTHS 10,000-100,000 MIU/ML 2ND TRIMESTER 3,000-50,000 MIU/ML 3RD TRIMESTER 1,000-50,000 MIU/ML If an hCG level is inconsistent with, or unsupported by, clinical evidence, results should be confirmed by an alternate hCG method. This method may include the qualitative hCG testing of urine. Performed By: #### A CBC, CMPF, BHCG2 #### Testing performed at [address] [place] [address] CBCon 09-13-2018 ABSOLUTE BAS 0.1 X10 Normal [facility] Comment on above: Performed By: #### A CBC, CMPF, BHCG2 #### Testing performed at [address] [place] [address] ABSOLUTE EOS 0.30 X10 Normal [facility] Comment on above: Performed By: #### A CBC, CMPF, BHCG2 #### Testing performed at [address] [place] [address] ABSOLUTE NEUTROPHIL COUNT 4.7 x10 Normal 1.0-7.0 [facility] Comment on above: Performed By: #### A CBC, CMPF, BHCG2 #### Testing performed at [address] [address] Basophils/100 WBC (Bld) 0.6 % Normal 0.0-2.0 [facility] Comment on above: Performed By: #### A CBC, CMPF, BHCG2 #### Testing performed at [address] [place] [address] DTYPE AUTO DIFF Normal [facility] Comment on above: Performed By: #### A CBC, CMPF, BHCG2 #### Testing performed at [address] [place] [address] Eosinophils/100 WBC (Bld) 3.9 % Normal 0.0-11.0 [facility] Comment on above: Performed By: #### A CBC, CMPF, BHCG2 #### Testing performed at [address] [address] Lymphocytes (Bld) [#/Vol] 3.[address] [facility] Comment on above: Performed By: #### A CBC, CMPF, BHCG2 #### Testing performed at [address] [place] [address] Lymphocytes/100 WBC (Bld) 36.9 % Normal 20.0-55.0 [facility] Comment on above: Performed By: #### A CBC, CMPF, BHCG2 #### Testing performed at [address] [address] Monocytes (Bld) [#/Vol] 0.[address] [facility] Comment on above: Performed By: #### A CBC, CMPF, BHCG2 #### Testing performed at [address] [address] Monocytes/100 WBC (Bld) 5.5 % Normal 0.0-10.0 [facility] Comment on above: Performed By: #### A CBC, CMPF, BHCG2 #### Testing performed at [address] [address] Neutrophils/100 WBC (Bld) 53.1 % Normal 37.0-75.0 [facility] Comment on above: Performed By: #### A CBC, CMPF, BHCG2 #### Testing performed at [address] [address] Erythrocyte distribution width (RBC) [Ratio] 12.9 % Normal 11.5-14.5 [facility] Comment on above: Performed By: #### A CBC, CMPF, BHCG2 #### Testing performed at [address] [address] Hematocrit (Bld) [Volume fraction] 44.2 % Normal 36.0-48.0 [facility] Comment on above: Performed By: #### A CBC, CMPF, BHCG2 #### Testing performed at [address] [address] Hemoglobin (Bld) [Mass/Vol] 15.7 g/dL Normal 12.0-16.0 [facility] Comment on above: Performed By: #### A CBC, CMPF, BHCG2 #### Testing performed at [address] [address] MCH (RBC) [Entitic mass] 29.1 pg Normal 26.0-35.0 [facility] Comment on above: Performed By: #### A CBC, CMPF, BHCG2 #### Testing performed at [address] [address] MCHC (RBC) [Mass/Vol] 35.5 g/dL Normal 27.0-37.0 [facility] Comment on above: Performed By: #### A CBC, CMPF, BHCG2 #### Testing performed at [address] [address] MCV (RBC) [Entitic vol] 82.2 fL Normal 80.0-100.0 [facility] Comment on above: Performed By: #### A CBC, CMPF, BHCG2 #### Testing performed at [address] [address] Platelet mean volume (Bld) [Entitic vol] 8.0 fL Normal 7.4-11.0 [facility] Comment on above: Performed By: #### A CBC, CMPF, BHCG2 #### Testing performed at [address] [address] Platelets (Bld) [#/Vol] 272 /cmm Normal 130.0-400.0 [facility] Comment on above: Performed By: #### A CBC, CMPF, BHCG2 #### Testing performed at [address] [address] RBC (Bld) [#/Vol] 5.38 /cmm Normal 4.0-5.4 [facility] Comment on above: Performed By: #### A CBC, CMPF, BHCG2 #### Testing performed at [address] [address] WBC (Bld) [#/Vol] 8.9 /cmm Normal 3.6-11.0 [facility] Comment on above: Performed By: #### A CBC, CMPF, BHCG2 #### Testing performed at [address] [address] CMP FASTINGon 09-13-2018 A:G RATIO 1.3 RATIO Normal 1.3-2.2 [facility] Comment on above: Performed By: #### A CBC, CMPF, BHCG2 #### Testing performed at [address] [address] Albumin [Mass/Vol] 4.4 G/dl Normal 3.5-5.0 [facility] Comment on above: Performed By: #### A CBC, CMPF, BHCG2 #### Testing performed at [address] [place] [address] ALP [Catalytic activity/Vol] 77 U/L Normal 38-126 [facility] Comment on above: Performed By: #### A CBC, CMPF, BHCG2 #### Testing performed at [address] [address] ALT [Catalytic activity/Vol] 29 U/L Normal 14-54 [facility] Comment on above: Performed By: #### A CBC, CMPF, BHCG2 #### Testing performed at [address] [address] AST [Catalytic activity/Vol] 19 U/L Normal 15-41 [facility] Comment on above: Performed By: #### A CBC, CMPF, BHCG2 #### Testing performed at [address] [address] Bilirubin [Mass/Vol] 0.7 mg/dL Normal 0.2-1.2 [facility] Comment on above: Performed By: #### A CBC, CMPF, BHCG2 #### Testing performed at [address] [address] Creatinine [Mass/Vol] 0.6 mg/dL Normal 0.52-1.04 [facility] Comment on above: Performed By: #### A CBC, CMPF, BHCG2 #### Testing performed at [address] [address] EST. GFR, >[address] [facility] Comment on above: Performed By: #### A CBC, CMPF, BHCG2 #### Testing performed at [address] [place] [address] EST. GFR,Non >[address] [facility] Comment on above: Performed By: #### A CBC, CMPF, BHCG2 #### Testing performed at [address] [address] GFR/1.73 sq M predicted among non-blacks MDRD (S/P/Bld) [Vol rate/Area] Average GFR for 20-29 years old = 116. Normal [facility] Comment on above: Result Comment: [employer] Kidney disease, GFR = <60. Kidney failure, GFR = <15. The GFR estimate is not adjusted for extreme body surface area or acute process, nor has it been validated for women or ethnic groups other than and . Performed By: #### A CBC, CMPF, BHCG2 #### Testing performed at [address] [address] Protein [Mass/Vol] 7.8 g/dL Normal 6.3-8.2 [facility] Comment on above: Performed By: #### A CBC, CMPF, BHCG2 #### Testing performed at [address] [address] Urea nitrogen [Mass/Vol] 17 mg/dL Normal 7-20 [facility] Comment on above: Performed By: #### A CBC, CMPF, BHCG2 #### Testing performed at [address] [address] Calcium [Mass/Vol] 9.2 mg/dL Normal 8.4-10.2 [facility] Comment on above: Performed By: #### A CBC, CMPF, BHCG2 #### Testing performed at [address] [address] Chloride [Moles/Vol] 102 mmol/L Normal 98-107 [facility] Comment on above: Performed By: #### A CBC, CMPF, BHCG2 #### Testing performed at [address] [address] CO2 [Moles/Vol] 23 mmol/L Normal 22-30 [facility] Comment on above: Performed By: #### A CBC, CMPF, BHCG2 #### Testing performed at [address] [address] Glucose [Mass/Vol] 301 mg/dL High 70-100 [facility] Comment on above: Result Comment: NORMAL <100 mg/dL PREDIABETES 101-126 mg/dL DIABETES 126 mg/dL or higher Performed By: #### A CBC, CMPF, BHCG2 #### Testing performed at [address] [address] Potassium [Moles/Vol] 3.7 mmol/L Normal 3.5-5.1 [facility] Comment on above: Performed By: #### A CBC, CMPF, CG2 #### Testing performed at [facility] [address] [place] [address] Sodium [Moles/Vol] 135 mmol/L Low 136-145 [facility] Comment on above: Performed By: #### A CBC, CMPF, BHCG2 #### Testing performed at [address] [address] BETA HCG, QUANT, BLOODon HCG.beta subunit Qn 0.00 m[IU]/mL MIU/ML [facility] Comment on above: [facility] INTERPRETIVE RANGES: NON FEMALE 0-6 MIU/ML MALE ADULT 0-2 MIU/ML 0-1 WEEK 6-50 MIU/ML 1-2 WEEKS 40-300 MIU/ML 2-3 WEEKS 100-1,000 MIU/ML 3-4 WEEKS 500-6,000 MIU/ML 1-2 MONTHS 5,000-200,000 MIU/ML 2-3 MONTHS 10,000-100,000 MIU/ML 2ND TRIMESTER 3,000-50,000 MIU/ML 3RD TRIMESTER 1,000-50,000 MIU/ML If an hCG level is inconsistent with, or unsupported by, clinical evidence, results should be confirmed by an alternate hCG method. This method may include the qualitative hCG testing of urine. CBC, EDIF, PLATELETon 2018 ABSOLUTE BASOPHIL COUNT 0.1 X10 [facility] Basophils/100 WBC (Bld) 0.6 % 0 - 2 % [facility] Differential cell count method Nom (Bld) AUTO DIFF % [facility] Eosinophils #/vol (Bld) 0.30 10*3/uL X10 [facility] Eosinophils/100 WBC (Bld) 3.9 % 0 - 11 % [facility] Erythrocyte distribution width Ratio (RBC) 12.9 % 11.5 - 14.5 % [facility] Hematocrit Volume Fraction (Bld) 44.2 % 36 - 48 % [facility] Hemoglobin mass conc (Bld) 15.7 g/dL [facility] Lymphocytes #/vol (Bld) 3.30 10*3/uL X10 [facility] Lymphocytes/100 WBC (Bld) 36.9 % 20 - 55 % [facility] MCH Entitic mass (RBC) 29.1 pg 26 - 35 PG [facility] MCHC mass conc (RBC) 35.5 g/dL [facility] MCV Entitic volume (RBC) 82.2 fL [facility] Monocytes #/vol (Bld) 0.5 10*3/uL X10 [facility] Monocytes/100 WBC (Bld) 5.5 % 0 - 10 % [facility] Neutrophils #/vol (Bld) 4.7 10*3/uL [facility] Neutrophils/100 WBC (Bld) 53.1 % 37 - 75 % [facility] Platelet mean volume Entitic volume (Bld) 8.0 fL [facility] Platelets #/vol (Bld) 272 10*3/uL [facility] RBC #/vol (Bld) 5.38 10*6/uL [facility] WBC #/vol (Bld) 8.9 10*3/uL [facility] COMPREHENSIVE METABOLIC PANE Saleem 09-12-2018 Albumin mass conc 4.4 G/dl 3.5 - 5 G/dl [facility] Albumin/Globulin mass ratio 1.3 {ratio} [facility] ALP enzyme act/vol 77 U/L [facility] ALT enzyme act/vol 29 U/L [facility] AST enzyme act/vol 19 U/L [facility] Bilirubin mass conc 0.7 mg/dL [facility] Calcium mass conc 9.2 mg/dL [facility] Chloride molar conc 102 mmol/L [facility] CO2 molar conc 23 mmol/L [facility] Creatinine mass conc 0.6 mg/dL [facility] GFR/1.73 sq M predicted among blacks MDRD vol rate/area (S/P/Bld) mL/min/{1.73_m2} ml/min/1.73s q.m [facility] GFR/1.73 sq M predicted among non-blacks MDRD vol rate/area (S/P/Bld) mL/min/{1.73_m2} ml/min/1.73s q.m [facility] GFR/1.73 sq M predicted among non-blacks MDRD vol rate/area (S/P/Bld) Average GFR for 20-29 years old = 116. [facility] Comment on above: Chronic Kidney disea se, GFR = <60. Kidney failure, GFR = <15. The GFR estimate is not adjusted for extreme body surface area or acute process, nor has it been validated for women or ethnic groups other than and . Glucose fasting mass conc 301 mg/dL High [facility] Comment on above: NORMAL <100 mg/dL PREDIABETES 101-126 mg/dL DIABETES 126 mg/dL or higher Interpretation and review of laboratory results Abnormal [facility] Potassium molar conc 3.7 mmol/L [facility] Protein mass conc 7.8 g/dL [facility] Sodium molar conc 135 mmol/L Low [facility] Urea nitrogen mass conc 17 mg/dL [facility] HCG QUALITATIVE, URINEon HCG ( test) Ql (U) Negative NEGATIVE [facility] POCT GLUCOSEon 09-12-2018 Glucose mass conc 247 mg/dL Abnormal 70 - 99 mg/dL [facility] Interpretation and review of laboratory results Abnormal [facility] URINALYSIS, MACROon 09-13-19 19 Bilirubin Ql (U) Negative NEGATIVE [facility] Clarity Nom (U) CLEAR CLEAR [facility] Color Nom (U) YELLOW YELLOW [facility] Glucose Test strip mass conc (U) 500 mg/dl Abnormal NEGATIVE [facility] Hemoglobin Ql (U) Negative NEGATIVE [facility] Interpretation and review of laboratory results Abnormal [facility] Ketones mass conc (U) 15 mg/dl Abnormal NEGATIVE [facility] Leukocyte esterase Test strip Ql (U) Negative NEGATIVE [facility] Nitrite Ql (U) Negative NEGATIVE [facility] TH pH (U) 5.5 [pH] [facility] Protein Ql (U) Negative NEGATIVE mg/dl [facility] Specific gravity Relative Density (U) 1.020 [facility] Urobilinogen mass conc (U) 0.2 mg/dl 0.2 - 1 mg/dl [facility] URINE HCG QUALon 09-12-2018 Beta HCG ( test) Ql (U) Negative Normal NEGATIVE [facility] Comment on above: Performed By: #### U HCGT, UMAC, UMIC #### Testing performed at [address] [address] URINE MACROSCOPICon 09-13-19 19 Bilirubin Ql (U) Negative Normal NEGATIVE [facility] Comment on above: Performed By: #### U HCGT, UMAC, UMIC #### Testing performed at [address] [address] Clarity (U) CLEAR Normal CLEAR [facility] Comment on above: Performed By: #### U HCGT, UMAC, UMIC #### Testing performed at [address] [address] Color (U) YELLOW Normal YELLOW [facility] Comment on above: Performed By: #### U HCGT, UMAC, UMIC #### Testing performed at [address] [address] Glucose Ql (U) 500 mg/dl Abnormal NEGATIVE [facility] Comment on above: Performed By: #### U HCGT, UMAC, UMIC #### Testing performed at [address] [address] pH (U) 5.5 [pH] Normal 5.0-7.0 [facility] Comment on above: Performed By: #### U HCGT, UMAC, UMIC #### Testing performed at [address] [address] Protein (U) [Mass/Vol] Negative Normal NEGATIVE [facility] Comment on above: Performed By: #### U HCGT, UMAC, UMIC #### Testing performed at [address] [address] URINE HEMOGLOBIN Negative Normal NEGATIVE [facility] Comment on above: Performed By: #### U HCGT, UMAC, UMIC #### Testing performed at [address] [address] URINE KETONE 15 mg/dl Abnormal NEGATIVE [facility] Comment on above: Performed By: #### U HCGT, UMAC, UMIC #### Testing performed at [address] [address] URINE LEUKOTEST Negative Normal NEGATIVE [facility] Comment on above: Performed By: #### U HCGT, UMAC, UMIC #### Testing performed at [address] [address] URINE NITRATES Negative Normal NEGATIVE [facility] Comment on above: Performed By: #### U HCGT, UMAC, UMIC #### Testing performed at [address] [address] URINE SPEC GRAVITY 1.020 Normal 1.010-1.025 [facility] Comment on above: Performed By: #### U HCGT, UMAC, UMIC #### Testing performed at [address] [address] Urobilinogen Qn (U) 0.2 mg/dl Normal 0.2-1.0 [facility] Comment on above: Performed By: #### U HCGT, UMAC, UMIC #### Testing performed at [address] [address] URINE MICROSCOPICon 09-13-19 19 Bacteria LM.HPF (Urine sed) [#/Area] Negative Normal NEGATIVE [facility] Comment on above: Performed By: #### U HCGT, UMAC, UMIC #### Testing performed at [address] [address] Casts LM.LPF (Urine sed) [#/Area] NONE Normal NONE [facility] Comment on above: Performed By: #### U HCGT, UMAC, UMIC #### Testing performed at [address] [address] CRYSTAL NONE Normal [facility] Comment on above: Performed By: #### U HCGT, UMAC, UMIC #### Testing performed at [address] [address] Epithelial cells LM.HPF (Urine sed) [#/Area] [address] [facility] Comment on above: Performed By: #### U HCGT, UMAC, UMIC #### Testing performed at [address] [address] Mucus Ql (Urine sed) Negative Normal NEGATIVE [facility] Comment on above: Performed By: #### U HCGT, UMAC, UMIC #### Testing performed at [address] [address] RBC (U) [#/Vol] Negative Normal NEGATIVE [facility] Comment on above: Performed By: #### U HCGT, UMAC, UMIC #### Testing performed at [address] [address] URINE COMMENT CULTURE CRITERIA NOT MET, NO CULTURE PERFORMED. Normal [facility] Comment on above: Performed By: #### U HCGT, UMAC, UMIC #### Testing performed at [address] [address] WBC (U) [#/Vol] Negative Normal NEGATIVE [facility] Comment on above: Performed By: #### U HCGT, UMAC, UMIC #### Testing performed at [address] [address] Bacteria LM.HPF #/area (Urine sed) Negative NEGATIVE [facility] Casts LM.LPF #/area (Urine sed) NONE NONE /LPF [facility] Crystals LM Nom (Urine sed) NONE NONE [facility] Epithelial cells LM Ql (Urine sed) 5 TO 10 /HPF [facility] Mucus Ql (Urine sed) Negative NEGATIVE [facility] RBC LM.HPF #/area (Urine sed) Negative NEGATIVE /HPF [facility] Urine sediment comments LM Jorge (Urine sed) CULTURE CRITERIA NOT MET, NO CULTURE PERFORMED. [facility] WBC LM.HPF #/area (Urine sed) Negative NEGATIVE /HPF [facility] Beta Hydroxybutyrateon 07-16 Beta Hydroxybutyrate 0.2 mmol/L Normal 0.00-0.30 [facility] Comment on above: Performed By: #### C BCDIF, HCGQT, LIPASE, CMET, BHBA #### Unless otherwise noted, all testing performed by [place] [address] CLIA: [id number] Hand Straightener: Cristofer Perry M.D. CBC with Diffon 07-16-2018 Basophils #/vol (Bld) 0.1 K/mcL Normal 0-0.2 [facility] Comment on above: Performed By: #### C BCDIF, HCGQT, LIPASE, CMET, BHBA #### Unless otherwise noted, all testing performed by [place] [address] CLIA: [id number] Hand Straightener: Cristofer Perry M.D. Basophils/100 WBC (Bld) 1.0 % Normal [facility] Comment on above: Performed By: #### C BCDIF, HCGQT, LIPASE, CMET, BHBA #### Unless otherwise noted, all testing performed by [place] [address] CLIA: [id number] Hand Straightener: Cristofer Perry M.D. Eosinophils #/vol (Bld) 0.1 K/mcL Normal 0-0.5 [facility] Comment on above: Performed By: #### C BCDIF, HCGQT, LIPASE, CMET, BHBA #### Unless otherwise noted, all testing performed by [place] [address] CLIA: [id number] Hand Straightener: Cristofer Perry M.D. Eosinophils/100 WBC (Bld) 1.1 % Normal [facility] Comment on above: Performed By: #### C BCDIF, HCGQT, LIPASE, CMET, BHBA #### Unless otherwise noted, all testing performed by [place] [address] CLIA: [id number] Hand Straightener: Cristofer Perry M.D. Erythrocyte distribution width Ratio (RBC) 13.6 % Normal 10.0-14.4 [facility] Comment on above: Performed By: #### C BCDIF, HCGQT, LIPASE, CMET, BHBA #### Unless otherwise noted, all testing performed by [place] [address] CLIA: [id number] Hand Straightener: Cristofer Perry M.D. Hematocrit Volume Fraction (Bld) 47.6 % High 34.4-44.8 [facility] Comment on above: Performed By: #### C BCDIF, HCGQT, LIPASE, CMET, BHBA #### Unless otherwise noted, all testing performed by [place] [address] CLIA: [id number] Hand Straightener: Cristofer Perry M.D. Hemoglobin mass conc (Bld) 16.3 g/dL High 11.6-15.4 [facility] Comment on above: Performed By: #### C BCDIF, HCGQT, LIPASE, CMET, BHBA #### Unless otherwise noted, all testing performed by [place] [address] CLIA: [id number] Hand Straightener: Cristofer Perry M.D. Lymphocytes #/vol (Bld) 2.3 K/mcL Normal 1.0-3.7 [facility] Comment on above: Performed By: #### C BCDIF, HCGQT, LIPASE, CMET, BHBA #### Unless otherwise noted, all testing performed by [place] [address] CLIA: [id number] Hand Straightener: Cristofer Perry M.D. Lymphocytes/100 WBC (Bld) 29.8 % Normal [facility] Comment on above: Performed By: #### C BCDIF, HCGQT, LIPASE, CMET, BHBA #### Unless otherwise noted, all testing performed by [place] [address] CLIA: [id number] Hand Straightener: Cristofer Perry M.D. MCH Entitic mass (RBC) 27.5 pg Low 27.9-33.9 [facility] Comment on above: Performed By: #### C BCDIF, HCGQT, LIPASE, CMET, BHBA #### Unless otherwise noted, all testing performed by [place] [address] CLIA: [id number] Hand Straightener: Cristofer Perry M.D. MCHC mass conc (RBC) 34.1 g/dL Normal 33.1-35.1 [facility] Comment on above: Performed By: #### C BCDIF, HCGQT, LIPASE, CMET, BHBA #### Unless otherwise noted, all testing performed by [place] [address] CLIA: [id number] Hand Straightener: Cristofer Perry M.D. MCV Entitic volume (RBC) 80.7 fL Low 82.6-98.9 [facility] Comment on above: Performed By: #### C BCDIF, HCGQT, LIPASE, CMET, BHBA #### Unless otherwise noted, all testing performed by [place] [address] CLIA: [id number] Hand Straightener: Cristofer Perry M.D. Monocytes #/vol (Bld) 0.5 K/mcL Normal 0.1-0.6 [facility] Comment on above: Performed By: #### C BCDIF, HCGQT, LIPASE, CMET, BHBA #### Unless otherwise noted, all testing performed by [place] [address] CLIA: [id number] Hand Straightener: Cristofer Perry M.D. Monocytes/100 WBC (Bld) 6.3 % Normal [facility] Comment on above: Performed By: #### C BCDIF, HCGQT, LIPASE, CMET, BHBA #### Unless otherwise noted, all testing performed by [place] [address] CLIA: [id number] Hand Straightener: Cristofer Perry M.D. Neutrophils #/vol (Bld) 4.7 K/mcL Normal 1.2-6.9 [facility] Comment on above: Performed By: #### C BCDIF, HCGQT, LIPASE, CMET, BHBA #### Unless otherwise noted, all testing performed by [place] [address] CLIA: [id number] Hand Straightener: Cristofer Perry M.D. Platelet mean volume Entitic volume (Bld) 8.3 fL Normal 7.0-10.6 [facility] Comment on above: Performed By: #### C BCDIF, HCGQT, LIPASE, CMET, BHBA #### Unless otherwise noted, all testing performed by [place] [address] CLIA: [id number] Hand Straightener: Cristofer Perry M.D. Platelets #/vol (Bld) 243 K/mcL Normal 162-402 [facility] Comment on above: Performed By: #### C BCDIF, HCGQT, LIPASE, CMET, BHBA #### Unless otherwise noted, all testing performed by [place] [address] CLIA: [id number] Hand Straightener: Cristofer Perry M.D. RBC #/vol (Bld) 5.90 M/mcL High 3.7-5.0 [facility] Comment on above: Performed By: #### C BCDIF, HCGQT, LIPASE, CMET, BHBA #### Unless otherwise noted, all testing performed by [place] [address] CLIA: [id number] Hand Straightener: Cristofer Perry M.D. Segmented Neut % 61.8 % Normal [facility] Comment on above: Performed By: #### C BCDIF, HCGQT, LIPASE, CMET, BHBA #### Unless otherwise noted, all testing performed by [place] [address] CLIA: [id number] Hand Straightener: Cristofer Perry M.D. WBC #/vol (Bld) 7.6 K/mcL Normal 3.4-10.6 [facility] Comment on above: Performed By: #### C BCDIF, HCGQT, LIPASE, CMET, BHBA #### Unless otherwise noted, all testing performed by [place] [address] CLIA: [id number] Hand Straightener: Cristofer Perry M.D. CT [facility],PELVIS IV CONTRAST ONLY Final Report Accession No: [id number] Performed: Jul 16 2018 4:33PM Examination: CT ABDO,PELVIS IV CONTRAST ONLY CT ABDOMEN, PELVIS IV CONTRAST ONLY CLINICAL STATEMENT: Abdominal pain, lower abdominal pain and nausea. COMPARISON: None. TECHNIQUE: CT examination of the abdomen and pelvis following the administration of 75 mL Isovue-370 intravenous contrast. Coronal and sagittal reformations were performed. Dose reduction techniques were achieved by using automated exposure control and/or adjustment of mA and/or kV according to patient size and/or use of iterative reconstruction technique. FINDINGS: There is mild diffuse fatty infiltration of the liver. There has been prior cholecystectomy. The spleen, pancreas, adrenal glands, and the kidneys are unremarkable. No enlarged lymph nodes are visualized within the abdomen or the pelvis. The appendix has a normal appearance. IMPRESSION: 1. Mild hepatic steatosis. Prior cholecystectomy. 2. Normal appendix. No inflammatory changes are visualized within the abdomen or the pelvis. Interpreting Physician: MAY WAYNE M.D. Trans: dcarr : cc: Normal [facility] Comprehensive Metabolic Pane saleem 07-16-2018 Albumin mass conc 4.2 g/dL Normal 3.2-5.2 [facility] Comment on above: Performed By: #### C BCDIF, HCGQT, LIPASE, CMET, BHBA #### Unless otherwise noted, all testing performed by [place] [address] CLIA: [id number] Hand Straightener: Cristofer Perry M.D. ALP enzyme act/vol 113 U/L Normal 40-140 [facility] Comment on above: Performed By: #### C BCDIF, HCGQT, LIPASE, CMET, BHBA #### Unless otherwise noted, all testing performed by [place] [address] CLIA: [id number] Hand Straightener: Cristofer Perry M.D. ALT enzyme act/vol 39 U/L Normal 14-65 [facility] Comment on above: Result Comment: This test result might be falsely depressed or falsely elevated on samples drawn from patients taking Sulfasalazine and Sulfapyridine. Venipuncture should occur prior to taking either of these drugs. Performed By: #### C BCDIF, HCGQT, LIPASE, CMET, BHBA #### Unless otherwise noted, all testing performed by [place] [address] CLIA: [id number] Hand Straightener: Cristofer Perry M.D. AST enzyme act/vol 12 U/L Normal 0-45 [facility] Comment on above: Result Comment: This test result might be falsely depressed or falsely elevated on samples drawn from patients taking Sulfasalazine and Sulfapyridine. Venipuncture should occur prior to taking either of these drugs. Performed By: #### C BCDIF, HCGQT, LIPASE, CMET, BHBA #### Unless otherwise noted, all testing performed by [place] [address] CLIA: [id number] Hand Straightener: Cristofer Perry M.D. Bilirubin mass conc 0.7 mg/dL Normal 0.3-1.2 [facility] Comment on above: Performed By: #### C BCDIF, HCGQT, LIPASE, CMET, BHBA #### Unless otherwise noted, all testing performed by [place] [phone] CLIA: [id number] Hand Straightener: Cristofer Perry M.D. Calcium mass conc 9.7 mg/dL Normal 8.4-10.2 [facility] Comment on above: Performed By: #### C BCDIF, HCGQT, LIPASE, CMET, BHBA #### Unless otherwise noted, all testing performed by [place] [phone] CLIA: [id number] Hand Straightener: Cristofer Perry M.D. Chloride molar conc 103 mmol/L Normal 98-108 [facility] Comment on above: Performed By: #### C BCDIF, HCGQT, LIPASE, CMET, BHBA #### Unless otherwise noted, all testing performed by [place] [address] CLIA: [id number] Hand Straightener: Cristofer Perry M.D. CO2 molar conc 25 mmol/L Normal 21-32 [facility] Comment on above: Performed By: #### C BCDIF, HCGQT, LIPASE, CMET, BHBA #### Unless otherwise noted, all testing performed by [place] [address] CLIA: [id number] Hand Straightener: Cristofer Perry M.D. Creatinine mass conc 0.90 mg/dL Normal 0.40-1.10 [facility] Comment on above: Performed By: #### C BCDIF, HCGQT, LIPASE, CMET, BHBA #### Unless otherwise noted, all testing performed by [place] [address] CLIA: [id number] Hand Straightener: Cristofer Perry M.D. GFR/1.73 sq M predicted among blacks MDRD vol rate/area (S/P/Bld) mL/min/{1.73_m2} Normal [facility] Comment on above: Result Comment: Afri can Malagasy GFR Calc Performed By: #### C BCDIF, HCGQT, LIPASE, CMET, BHBA #### Unless otherwise noted, all testing performed by [place] [address] CLIA: [id number] Hand Straightener: Cristofer Perry M.D. GFR/1.73 sq M predicted among non-blacks MDRD vol rate/area (S/P/Bld) mL/min/{1.73_m2} Normal [facility] Comment on above: Result Comment: Non- GFR Calc eGFR is an estimated Glomerular Filtration Rate based on the value of the patient's serum creatinine. In outpatients, eGFR should be used as a helpful tool in screening for CKD. In inpatients or patients with acute renal failure, eGFR represents the GFR at the moment of the draw and should be used with caution. Performed By: #### C BCDIF, HCGQT, LIPASE, CMET, BHBA #### Unless otherwise noted, all testing performed by [place] [address] CLIA: [id number] Hand Straightener: Cristofer Perry M.D. Glucose mass conc 367 mg/dL High 70-99 [facility] Comment on above: Result Comment: This test result might be falsely depressed or falsely elevated on samples drawn from patients taking Sulfasalazine and Sulfapyridine. Venipuncture should occur prior to taking either of these drugs. Performed By: #### C BCDIF, HCGQT, LIPASE, CMET, BHBA #### Unless otherwise noted, all testing performed by [place] [phone] CLIA: [id number] Hand Straightener: Cristofer Perry M.D. Potassium molar conc 3.6 mmol/L Normal 3.5-5.1 [facility] Comment on above: Performed By: #### C BCDIF, HCGQT, LIPASE, CMET, BHBA #### Unless otherwise noted, all testing performed by [place] [address] CLIA: [id number] Hand Straightener: Cristofer Perry M.D. Protein mass conc 8.4 g/dL High 6.0-8.0 [facility] Comment on above: Performed By: #### C BCDIF, HCGQT, LIPASE, CMET, BHBA #### Unless otherwise noted, all testing performed by [place] [address] CLIA: [id number] Hand Straightener: Cristofer Perry M.D. Sodium molar conc 140 mmol/L Normal 135-145 [facility] Comment on above: Performed By: #### C BCDIF, HCGQT, LIPASE, CMET, BHBA #### Unless otherwise noted, all testing performed by [place] [address] CLIA: [id number] Hand Straightener: Cristofer Perry M.D. Urea nitrogen mass conc 7 mg/dL Low 8-25 [facility] Comment on above: Performed By: #### C BCDIF, HCGQT, LIPASE, CMET, BHBA #### Unless otherwise noted, all testing performed by [place] [address] CLIA: [id number] Hand Straightener: Cristofer Perry M.D. Lipaseon 07-16-2018 Lipase enzyme act/vol 83 U/L Normal 73-393 [facility] Comment on above: Performed By: #### C BCDIF, HCGQT, LIPASE, CMET, BHBA #### Unless otherwise noted, all testing performed by [place] [address] CLIA: [id number] Hand Straightener: Cristofer Perry M.D. Test,Urine Qualon 07-16-2018 HCG.beta subunit ( test) Ql (U) Negative Normal Negative [facility] Comment on above: Result Comment: Rapi d test procedural control acceptable. If a negative result is obtained but is suspected, hCG levels may be too low or urine may be too dilute for detection. Another specimen should be collected after 48-72 hours and tested. If waiting 48 hours is not medically advisable, the test result should be confirmed with a more sensitive quantitative serum hCG test. Performed By: #### C BCDIF, HCGQT, LIPASE, CMET, BHBA #### Unless otherwise noted, all testing performed by [place] [address] CLIA: [id number] Hand Straightener: Cristofer Perry M.D. Urinalysis, Routineon 2018 Bilirubin,Urine Negative Normal NEG;NEGATIVE [facility] Comment on above: Performed By: #### C BCDIF, HCGQT, LIPASE, CMET, BHBA #### Unless otherwise noted, all testing performed by [place] [address] CLIA: [id number] Hand Straightener: Cristofer Perry M.D. Blood,Urine Negative Normal NEG;NEGATIVE [facility] Comment on above: Performed By: #### C BCDIF, HCGQT, LIPASE, CMET, BHBA #### Unless otherwise noted, all testing performed by [place] [address] CLIA: [id number] Hand Straightener: Cristofer Perry M.D. Character Nom (U) Hazy Normal [facility] Comment on above: Performed By: #### C BCDIF, HCGQT, LIPASE, CMET, BHBA #### Unless otherwise noted, all testing performed by [place] [address] CLIA: [id number] Hand Straightener: Cristofer Perry M.D. Color Nom (U) Yellow Normal [facility] Comment on above: Performed By: #### C BCDIF, HCGQT, LIPASE, CMET, BHBA #### Unless otherwise noted, all testing performed by [place] [phone] CLIA: [id number] Hand Straightener: Cristofer Perry M.D. Glucose Ql (U) >= 500 High < 70 [facility] Comment on above: Performed By: #### C BCDIF, HCGQT, LIPASE, CMET, BHBA #### Unless otherwise noted, all testing performed by [place] [address] CLIA: [id number] Hand Straightener: Cristofer Perry M.D. Ketone,Urine Trace Abnormal NEG;NEGATIVE [facility] Comment on above: Performed By: #### C BCDIF, HCGQT, LIPASE, CMET, BHBA #### Unless otherwise noted, all testing performed by [place] [address] CLIA: [id number] Hand Straightener: Cristofer Perry M.D. Leuk.Esterase,Urine Trace Abnormal Negative [facility] Comment on above: Performed By: #### C BCDIF, HCGQT, LIPASE, CMET, BHBA #### Unless otherwise noted, all testing performed by [place] [address] CLIA: [id number] Hand Straightener: Cristofer Perry M.D. Nitrite,Urine Negative Normal NEG;NEGATIVE [facility] Comment on above: Performed By: #### C BCDIF, HCGQT, LIPASE, CMET, BHBA #### Unless otherwise noted, all testing performed by [place] [address] CLIA: [id number] Hand Straightener: Cristofer Perry M.D. pH (U) 6.0 [pH] Normal 4.5-8.0 [facility] Comment on above: Performed By: #### C BCDIF, HCGQT, LIPASE, CMET, BHBA #### Unless otherwise noted, all testing performed by [place] [address] CLIA: [id number] Hand Straightener: Cristofer Perry M.D. Protein mass conc (U) Negative Normal NEG;NEGATIVE O [facility] Comment on above: Performed By: #### C BCDIF, HCGQT, LIPASE, CMET, BHBA #### Unless otherwise noted, all testing performed by [place] [address] CLIA: [id number] Hand Straightener: Cristofer Perry M.D. RBC LM.HPF #/area (Urine sed) /[HPF] Normal 0-5 [facility] Comment on above: Performed By: #### C BCDIF, HCGQT, LIPASE, CMET, BHBA #### Unless otherwise noted, all testing performed by [place] [address] CLIA: [id number] Hand Straightener: Cristofer Perry M.D. Specific [place],Urine 1.036 High 1.003-1.029 [facility] Comment on above: Performed By: #### C BCDIF, HCGQT, LIPASE, CMET, BHBA #### Unless otherwise noted, all testing performed by [place] [address] CLIA: [id number] Hand Straightener: Cristofer Perry M.D. Squamous Epithelial 4 /HPF Normal 0-40 [facility] Comment on above: Performed By: #### C BCDIF, HCGQT, LIPASE, CMET, BHBA #### Unless otherwise noted, all testing performed by [place] [address] CLIA: [id number] Hand Straightener: Cristofer Perry M.D. Urobilinogen,Urine < 2.0 Normal <2 [facility] Comment on above: Result Comment: Urob ilinogen, Urine Reference Range: <2.0 mg/dL Performed By: #### C BCDIF, HCGQT, LIPASE, CMET, BHBA #### Unless otherwise noted, all testing performed by [place] [address] CLIA: [id number] Hand Straightener: Cristofer Perry M.D. WBC,Urine 3 /HPF Normal 0-5 [facility] Comment on above: Performed By: #### C BCDIF, HCGQT, LIPASE, CMET, BHBA #### Unless otherwise noted, all testing performed by [place] [address] CLIA: [id number] Hand Straightener: Cristofer Perry M.D. Glucose, POCon 02-02-2018 Glucose mass conc 183 mg/dL High 70-105 [facility] Comment on above: Performed By: #### G LUX #### Unless otherwise noted, all testing performed by [place] [phone] CLIA: [id number] Hand Straightener: Cristofer Perry M.D. Beta Hydroxybutyrateon 02-01 Beta Hydroxybutyrate 0.1 mmol/L Normal 0.00-0.30 [facility] Comment on above: Performed By: #### C BCDIF, HCGQT, LIPASE, CMET, BHBA #### Unless otherwise noted, all testing performed by [place] [phone] CLIA: [id number] Hand Straightener: Cristofer Perry M.D. CBC with Diffon 02-01-2018 Basophils #/vol (Bld) 0.0 K/mcL Normal 0-0.2 [facility] Comment on above: Performed By: #### C BCDIF, HCGQT, LIPASE, CMET, BHBA #### Unless otherwise noted, all testing performed by [place] [address] CLIA: [id number] Hand Straightener: Cristofer Perry M.D. Basophils/100 WBC (Bld) 0.6 % Normal [facility] Comment on above: Performed By: #### C BCDIF, HCGQT, LIPASE, CMET, BHBA #### Unless otherwise noted, all testing performed by [place] [phone] CLIA: [id number] Hand Straightener: Cristofer Perry M.D. Eosinophils #/vol (Bld) 0.1 K/mcL Normal 0-0.5 [facility] Comment on above: Performed By: #### C BCDIF, HCGQT, LIPASE, CMET, BHBA #### Unless otherwise noted, all testing performed by [place] [phone] CLIA: [id number] Hand Straightener: Cristofer Perry M.D. Eosinophils/100 WBC (Bld) 1.9 % Normal [facility] Comment on above: Performed By: #### C BCDIF, HCGQT, LIPASE, CMET, BHBA #### Unless otherwise noted, all testing performed by [place] [phone] CLIA: [id number] Hand Straightener: Cristofer Perry M.D. Erythrocyte distribution width Ratio (RBC) 14.3 % Normal 10.0-14.4 [facility] Comment on above: Performed By: #### C BCDIF, HCGQT, LIPASE, CMET, BHBA #### Unless otherwise noted, all testing performed by [place] [address] CLIA: [id number] Hand Straightener: Cristofer Perry M.D. Hematocrit Volume Fraction (Bld) 43.7 % Normal 34.4-44.8 [facility] Comment on above: Performed By: #### C BCDIF, HCGQT, LIPASE, CMET, BHBA #### Unless otherwise noted, all testing performed by [place] [address] CLIA: [id number] Hand Straightener: Cristofer Perry M.D. Hemoglobin mass conc (Bld) 15.0 g/dL Normal 11.6-15.4 [facility] Comment on above: Performed By: #### C BCDIF, HCGQT, LIPASE, CMET, BHBA #### Unless otherwise noted, all testing performed by [place] [address] CLIA: [id number] Hand Straightener: Cristofer Perry M.D. Lymphocytes #/vol (Bld) 2.7 K/mcL Normal 1.0-3.7 [facility] Comment on above: Performed By: #### C BCDIF, HCGQT, LIPASE, CMET, BHBA #### Unless otherwise noted, all testing performed by [place] [address] CLIA: [id number] Hand Straightener: Cristofer Perry M.D. Lymphocytes/100 WBC (Bld) 35.0 % Normal [facility] Comment on above: Performed By: #### C BCDIF, HCGQT, LIPASE, CMET, BHBA #### Unless otherwise noted, all testing performed by [place] [address] CLIA: [id number] Hand Straightener: Cristofer Perry M.D. MCH Entitic mass (RBC) 27.5 pg Low 27.9-33.9 [facility] Comment on above: Performed By: #### C BCDIF, HCGQT, LIPASE, CMET, BHBA #### Unless otherwise noted, all testing performed by [place] [address] CLIA: [id number] Hand Straightener: Cristofer Perry M.D. MCHC mass conc (RBC) 34.3 g/dL Normal 33.1-35.1 [facility] Comment on above: Performed By: #### C BCDIF, HCGQT, LIPASE, CMET, BHBA #### Unless otherwise noted, all testing performed by [place] [address] CLIA: [id number] Hand Straightener: Cristofer Perry M.D. MCV Entitic volume (RBC) 80.3 fL Low 82.6-98.9 [facility] Comment on above: Performed By: #### C BCDIF, HCGQT, LIPASE, CMET, BHBA #### Unless otherwise noted, all testing performed by [place] [address] CLIA: [id number] Hand Straightener: Cristofer Perry M.D. Monocytes #/vol (Bld) 0.4 K/mcL Normal 0.1-0.6 [facility] Comment on above: Performed By: #### C BCDIF, HCGQT, LIPASE, CMET, BHBA #### Unless otherwise noted, all testing performed by [place] [address] CLIA: [id number] Hand Straightener: Cristofer Perry M.D. Monocytes/100 WBC (Bld) 4.8 % Normal [facility] Comment on above: Performed By: #### C BCDIF, HCGQT, LIPASE, CMET, BHBA #### Unless otherwise noted, all testing performed by [place] [address] CLIA: [id number] Hand Straightener: Cristofer Perry M.D. Neutrophils #/vol (Bld) 4.5 K/mcL Normal 1.2-6.9 [facility] Comment on above: Performed By: #### C BCDIF, HCGQT, LIPASE, CMET, BHBA #### Unless otherwise noted, all testing performed [place] [address] CLIA: [id number] Hand Straightener: Cristofer Perry M.D. Platelet mean volume Entitic volume (Bld) 7.9 fL Normal 7.0-10.6 [facility] Comment on above: Performed By: #### C BCDIF, HCGQT, LIPASE, CMET, BHBA #### Unless otherwise noted, all testing performed by [place] [address] CLIA: [id number] Hand Straightener: Cristofer Perry M.D. Platelets #/vol (Bld) 274 K/mcL Normal 162-402 [facility] Comment on above: Performed By: #### C BCDIF, HCGQT, LIPASE, CMET, BHBA #### Unless otherwise noted, all testing performed by [place] [address] CLIA: [id number] Hand Straightener: Cristofer Perry M.D. RBC #/vol (Bld) 5.44 M/mcL High 3.7-5.0 [facility] Comment on above: Performed By: #### C BCDIF, HCGQT, LIPASE, CMET, BHBA #### Unless otherwise noted, all testing performed by [place] [address] CLIA: [id number] Hand Straightener: Cristofer Perry M.D. Segmented Neut % 57.7 % Normal [facility] Comment on above: Performed By: #### C BCDIF, HCGQT, LIPASE, CMET, BHBA #### Unless otherwise noted, all testing performed by [place] [address] CLIA: [id number] Hand Straightener: Cristofer Perry M.D. WBC #/vol (Bld) 7.8 K/mcL Normal 3.4-10.6 [facility] Comment on above: Performed By: #### C BCDIF, HCGQT, LIPASE, CMET, BHBA #### Unless otherwise noted, all testing performed by [place] [address] CLIA: [id number] Hand Straightener: Cristofer Perry M.D. Comprehensive Metabolic [facility] 02-01-2018 Albumin mass conc 3.8 g/dL Normal 3.2-5.2 [facility] Comment on above: Performed By: #### C BCDIF, HCGQT, LIPASE, CMET, BHBA #### Unless otherwise noted, all testing performed by [place] [address] CLIA: [id number] Hand Straightener: Cristofer Perry M.D. ALP enzyme act/vol 86 U/L Normal 40-140 [facility] Comment on above: Performed By: #### C BCDIF, HCGQT, LIPASE, CMET, BHBA #### Unless otherwise noted, all testing performed by [place] [address] CLIA: [id number] Hand Straightener: Cristofer Perry M.D. ALT enzyme act/vol 38 U/L Normal 14-65 [facility] Comment on above: Result Comment: This test result might be falsely depressed or falsely elevated on samples drawn from patients taking Sulfasalazine and Sulfapyridine. Venipuncture should occur prior to taking either of these drugs. Performed By: #### C BCDIF, HCGQT, LIPASE, CMET, BHBA #### Unless otherwise noted, all testing performed by [place] [address] CLIA: [id number] Hand Straightener: Cristofer Perry M.D. AST enzyme act/vol 11 U/L Normal 0-45 [facility] Comment on above: Result Comment: This test result might be falsely depressed or falsely elevated on samples drawn from patients taking Sulfasalazine and Sulfapyridine. Venipuncture should occur prior to taking either of these drugs. Performed By: #### C BCDIF, HCGQT, LIPASE, CMET, BHBA #### Unless otherwise noted, all testing performed by [place] [address] CLIA: [id number] Hand Straightener: Cristofer Perry M.D. Bilirubin mass conc 0.3 mg/dL Normal 0.3-1.2 [facility] Comment on above: Performed By: #### C BCDIF, HCGQT, LIPASE, CMET, BHBA #### Unless otherwise noted, all testing performed by [place] [address] CLIA: [id number] Hand Straightener: Cristofer Perry M.D. Calcium mass conc 9.0 mg/dL Normal 8.4-10.2 [facility] Comment on above: Performed By: #### C BCDIF, HCGQT, LIPASE, CMET, BHBA #### Unless otherwise noted, all testing performed by [place] [address] CLIA: [id number] Hand Straightener: Cristofer Perry M.D. Chloride molar conc 106 mmol/L Normal 98-108 [facility] Comment on above: Performed By: #### C BCDIF, HCGQT, LIPASE, CMET, BHBA #### Unless otherwise noted, all testing performed by [place] [address] CLIA: [id number] Hand Straightener: Cristofer Perry M.D. CO2 molar conc 20 mmol/L Low 21-32 [facility] Comment on above: Performed By: #### C BCDIF, HCGQT, LIPASE, CMET, BHBA #### Unless otherwise noted, all testing performed by [place] [address] CLIA: [id number] Hand Straightener: Cristofer Perry M.D. Creatinine mass conc 0.85 mg/dL Normal 0.40-1.10 [facility] Comment on above: Performed By: #### C BCDIF, HCGQT, LIPASE, CMET, BHBA #### Unless otherwise noted, all testing performed by [place] [address] CLIA: [id number] Hand Straightener: Cristofer Perry M.D. GFR/1.73 sq M predicted among blacks MDRD vol rate/area (S/P/Bld) mL/min/{1.73_m2} Normal [facility] Comment on above: Result Comment: Afri can Malagasy GFR Calc Performed By: #### C BCDIF, HCGQT, LIPASE, CMET, BHBA #### Unless otherwise noted, all testing performed by [place] [address] CLIA: [id number] Hand Straightener: Cristofer Perry M.D. GFR/1.73 sq M predicted among non-blacks MDRD vol rate/area (S/P/Bld) mL/min/{1.73_m2} Normal [facility] Comment on above: Result Comment: Non- GFR Calc eGFR is an estimated Glomerular Filtration Rate based on the value of the patient's serum creatinine. In outpatients, eGFR should be used as a helpful tool in screening for CKD. In inpatients or patients with acute renal failure, eGFR represents the GFR at the moment of the draw and should be used with caution. Performed By: #### C BCDIF, HCGQT, LIPASE, CMET, BHBA #### Unless otherwise noted, all testing performed by [place] [address] CLIA: [id number] Hand Straightener: Cristofer Perry M.D. Glucose mass conc 360 mg/dL High 70-99 [facility] Comment on above: Result Comment: This test result might be falsely depressed or falsely elevated on samples drawn from patients taking Sulfasalazine and Sulfapyridine. Venipuncture should occur prior to taking either of these drugs. Performed By: #### C BCDIF, HCGQT, LIPASE, CMET, BHBA #### Unless otherwise noted, all testing performed by [place] [address] CLIA: [id number] Hand Straightener: Cristofer Perry M.D. Potassium molar conc 3.5 mmol/L Normal 3.5-5.1 [facility] Comment on above: Performed By: #### C BCDIF, HCGQT, LIPASE, CMET, BHBA #### Unless otherwise noted, all testing performed by [place] [address] CLIA: [id number] Hand Straightener: Cristofer Perry M.D. Protein mass conc 8.2 g/dL High 6.0-8.0 [facility] Comment on above: Performed By: #### C BCDIF, HCGQT, LIPASE, CMET, BHBA #### Unless otherwise noted, all testing performed by [place] [address] CLIA: [id number] Hand Straightener: Cristofer Perry M.D. Sodium molar conc 137 mmol/L Normal 135-145 [facility] Comment on above: Performed By: #### C BCDIF, HCGQT, LIPASE, CMET, BHBA #### Unless otherwise noted, all testing performed by [place] [address] CLIA: [id number] Hand Straightener: Cristofer Perry M.D. Urea nitrogen mass conc 11 mg/dL Normal 8-25 [facility] Comment on above: Performed By: #### C BCDIF, HCGQT, LIPASE, CMET, BHBA #### Unless otherwise noted, all testing performed by [place] [address] CLIA: [id number] Hand Straightener: Cristofer Perry M.D. Culture, Urineon 02-01-2018 Culture, Urine Test Name: Culture, Urine Culture Status: Final Culture Report: No significant growth. Micro Source: Urine Normal [facility] Comment on above: Performed By: #### C BCDIF, HCGQT, LIPASE, CMET, BHBA #### Unless otherwise noted, all testing performed by [place] [address] CLIA: [id number] Hand Straightener: Cristofer Perry M.D. Culture, Urine Test Name: Culture, Urine Culture Status: Final Culture Report: No Growth - Day 2 Micro Source: Urine Normal [facility] Comment on above: Performed By: #### C BCDIF, HCGQT, LIPASE, CMET, BHBA #### Unless otherwise noted, all testing performed by [place] [address] CLIA: [id number] Hand Straightener: Cristofer Perry M.D. HCG, Quantitativeon 02-02-20 18 HCG, Quantitative 4321 mIU/mL Normal [facility] Comment on above: Result Comment: HCG, Quant. Reference Range: [Units mIU/ml] Gestation Age Approx.HCG 0.2-1Week 5-50 1-2 Weeks 50-500 2-3 Weeks 100-5,000 3-4 Weeks 500-10,000 4-5 Weeks 1,000-50,000 6-8 Weeks 15,000-200,000 2-3 Months 10,000-100,000 Non- Females <5 Males <5 Performed By: #### C BCDIF, HCGQT, LIPASE, CMET, BHBA #### Unless otherwise noted, all testing performed by [place] [address] CLIA: [id number] Hand Straightener: Cristofer Perry M.D. Lipaseon 02-01-2018 Lipase enzyme act/vol 136 U/L Normal 73-393 [facility] Comment on above: Performed By: #### C BCDIF, HCGQT, LIPASE, CMET, BHBA #### Unless otherwise noted, all testing performed by [place] [address] CLIA: [id number] Hand Straightener: Cristofer Perry M.D. Urinalysis, Routineon 2017 Bacteria LM.HPF #/area (Urine sed) Rare Normal NS;RARE [facility] Comment on above: Performed By: #### U A #### Unless otherwise noted, all testing performed by [place] [address] CLIA: [id number] Hand Straightener: Cristofer Perry M.D. Bilirubin,Urine Negative Normal NEG;NEGATIVE [facility] Comment on above: Performed By: #### U A #### Unless otherwise noted, all testing performed by [place] [address] CLIA: [id number] Hand Straightener: Cristofer Perry M.D. Blood,Urine Negative Normal NEG;NEGATIVE [facility] Comment on above: Performed By: #### U A #### Unless otherwise noted, all testing performed by [place] [address] CLIA: [id number] Hand Straightener: Cristofer Perry M.D. Character Nom (U) Clear Normal [facility] Comment on above: Performed By: #### U A #### Unless otherwise noted, all testing performed by [place] [address] CLIA: [id number] Hand Straightener: Cristofer Perry M.D. Color Nom (U) Straw Normal [facility] Comment on above: Performed By: #### U A #### Unless otherwise noted, all testing performed by [address] [place], [place] [address] CLIA: [id number] Hand Straightener: Cristofer Perry M.D. Glucose Ql (U) >= 500 High < 70 [facility] Comment on above: Performed By: #### U A #### Unless otherwise noted, all testing performed by [place] [address] CLIA: [id number] Hand Straightener: Cristofer Perry M.D. Ketone,Urine Trace Abnormal NEG;NEGATIVE [facility] Comment on above: Performed By: #### U A #### Unless otherwise noted, all testing performed by [place] [address] CLIA: [id number] Hand Straightener: Cristofer Perry M.D. Leuk.Esterase,Urine Negative Normal Negative [facility] Comment on above: Performed By: #### U A #### Unless otherwise noted, all testing performed by [place] [address] CLIA: [id number] Hand Straightener: Cristofer Perry M.D. Nitrite,Urine Negative Normal NEG;NEGATIVE [facility] Comment on above: Performed By: #### U A #### Unless otherwise noted, all testing performed by [place] [address] CLIA: [id number] Hand Straightener: Cristofer Perry M.D. pH (U) 5.0 [pH] Normal 4.5-8.0 [facility] Comment on above: Performed By: #### U A #### Unless otherwise noted, all testing performed by [place] [address] CLIA: [id number] Hand Straightener: Cristofer Perry M.D. Protein mass conc (U) Negative Normal NEG;NEGATIVE O [facility] Comment on above: Performed By: #### U A #### Unless otherwise noted, all testing performed by [place] [address] CLIA: [id number] Hand Straightener: Cristofer Perry M.D. RBC LM.HPF #/area (Urine sed) /[HPF] Normal 0-5 [facility] Comment on above: Performed By: #### U A #### Unless otherwise noted, all testing performed by [place] [address] CLIA: [id number] Hand Straightener: Cristofer Perry M.D. Specific [place],Urine 1.031 High 1.003-1.029 [facility] Comment on above: Performed By: #### U A #### Unless otherwise noted, all testing performed by [place] [address] CLIA: [id number] Hand Straightener: Cristofer Perry M.D. Squamous Epithelial < 1 Normal 0-40 [facility] Comment on above: Performed By: #### U A #### Unless otherwise noted, all testing performed by [place] [address] CLIA: [id number] Hand Straightener: Cristofer Perry M.D. Urobilinogen,Urine < 2.0 Normal <2 [facility] Comment on above: Performed By: #### U A #### Unless otherwise noted, all testing performed by [place] [address] CLIA: [id number] Hand Straightener: Cristofer Perry M.D. WBC,Urine 1 /HPF Normal 0-5 [facility] Comment on above: Performed By: #### U A #### Unless otherwise noted, all testing performed by [place] [address] CLIA: [id number] Hand Straightener: Cristofer Perry M.D. Venous Blood Gason 8 Allens Test N/A Normal [facility] Comment on above: Performed By: #### V BG #### Unless otherwise noted, all testing performed by [place] [address] CLIA: [id number] Hand Straightener: Cristofer Perry M.D. Base Excess, Venous -3.0 mmol/L Low -2.0-2.0 [facility] Comment on above: Performed By: #### V BG #### Unless otherwise noted, all testing performed by [place] [address] CLIA: [id number] Hand Straightener: Cristofer Perry M.D. Blood Gas Instrument ;ED Normal [facility] Comment on above: Performed By: #### V BG #### Unless otherwise noted, all testing performed by [place] [address] CLIA: [id number] Hand Straightener: Cristofer Perry M.D. Carboxyhemoglobin, Venous 2.3 [facility] Comment on above: Result Comment: Subu rban Non-Smoker <1.5% of total Hgb Smoker 1.5 - 5.0 % of total Hgb Heavy Smoker 5.0 - 9.0 % of total Hgb Performed By: #### V BG #### Unless otherwise noted, all testing performed by [place] [address] CLIA: [id number] Hand Straightener: Cristofer Perry M.D. DeOxyhemoglobin (HHB), Venous < 2.4 Normal [facility] Comment on above: Result Comment: noti fied at Value below reportable range < 2.4 Performed By: #### V BG #### Unless otherwise noted, all testing performed by [place] [address] CLIA: [id number] Hand Straightener: Cristofer Perry M.D. Drawn By (Bld Gas) lab Normal [facility] Comment on above: Performed By: #### V BG #### Unless otherwise noted, all testing performed by [place] [phone] CLIA: [id number] Hand Straightener: Cristofer Perry M.D. FIO2 21.0 % Normal 21-100 [facility] Comment on above: Performed By: #### V BG #### Unless otherwise noted, all testing performed by [place] [address] CLIA: [id number] Hand Straightener: Cristofer Perry M.D. Hematocrit Volume Fraction (Bld) 42.4 % Normal 36-46 [facility] Comment on above: Performed By: #### V BG #### Unless otherwise noted, all testing performed by [place] [address] CLIA: [id number] Hand Straightener: Cristofer Perry M.D. Hemoglobin mass conc (Bld) 95.8 % Normal 92-99 [facility] Comment on above: Performed By: #### V BG #### Unless otherwise noted, all testing performed by [place] [address] CLIA: [id number] Hand Straightener: Cristofer Perry M.D. Hemoglobin mass conc (Bld) 13.8 g/dL Normal 12.0-16.0 [facility] Comment on above: Performed By: #### V BG #### Unless otherwise noted, all testing performed by [place] [address] CLIA: [id number] Hand Straightener: Cristofer Perry M.D. Hemoglobin mass conc (Bld) 99.3 % High 40-70 [facility] Comment on above: Result Comment: Valu e above reference range Performed By: #### V BG #### Unless otherwise noted, all testing performed by [place] [address] CLIA: [id number] Hand Straightener: Cristofer Perry M.D. Methemoglobin, Venous 1.3 Normal < 2.0 [facility] Comment on above: Performed By: #### V BG #### Unless otherwise noted, all testing performed by [place] [address] CLIA: [id number] Hand Straightener: Cristofer Perry M.D. O2 CT, Venous 8.4 mmol/L Normal [facility] Comment on above: Performed By: #### V BG #### Unless otherwise noted, all testing performed by [place] [address] CLIA: [id number] Hand Straightener: Cristofer Perry M.D. O2 Device Room Air Normal [facility] Comment on above: Performed By: #### V BG #### Unless otherwise noted, all testing performed by [place] [address] CLIA: [id number] Hand Straightener: Cristofer Perry M.D. pCO2 (temp conv.), Venous 38.3 mm Hg Low [address] [place] [address] Comment on above: Performed By: #### V BG #### Unless otherwise noted, all testing performed by [place] [address] CLIA: [id number] Hand Straightener: Cristofer Perry M.D. pCO2, Venous 38.3 mm Hg Low [address] [place] [address] Comment on above: Result Comment: Valu e below reference range Performed By: #### V BG #### Unless otherwise noted, all testing performed by [place] [address] CLIA: [id number] Hand Straightener: Cristofer Perry M.D. pH (temp conv.), Venous 7.367 Normal 7.32-7.42 [facility] Comment on above: Performed By: #### V BG #### Unless otherwise noted, all testing performed by [place] [address] CLIA: [id number] Hand Straightener: Cristofer Perry M.D. pH, Venous 7.367 Normal 7.32-7.42 [facility] Comment on above: Performed By: #### V BG #### Unless otherwise noted, all testing performed by [place] [address] CLIA: [id number] Hand Straightener: Cristofer Perry M.D. pO2(temp conv.), Venous 149 mm Hg High 25-40 [facility] Comment on above: Performed By: #### V BG #### Unless otherwise noted, all testing performed by [place] [address] CLIA: [id number] Hand Straightener: Cristofer Perry M.D. pO2, Venous 149 mm Hg High 25-40 [facility] Comment on above: Performed By: #### V BG #### Unless otherwise noted, all testing performed by [place] [address] CLIA: [id number] Hand Straightener: Cristofer Perry M.D. Site (Bld Gas) OTHER Normal [facility] Comment on above: Performed By: #### V BG #### Unless otherwise noted, all testing performed by [place] [address] CLIA: [id number] Hand Straightener: Cristofer Perry M.D. VPO2 22.0 mmol/L Low 24-28 [facility] Comment on above: Performed By: #### V BG #### Unless otherwise noted, all testing performed by [place] [address] CLIA: [id number] Hand Straightener: Cristofer Perry M.D. iSTAT Pediatric Panelon - Chloride molar conc 105 mmol/L Normal 98-109 [facility] Comment on above: Performed By: #### E RPED #### Unless otherwise noted, all testing performed by [place] [address] CLIA: [id number] Hand Straightener: Cristofer Perry M.D. CO2 molar conc 22 mmol/L Low 23-32 [facility] Comment on above: Performed By: #### E RPED #### Unless otherwise noted, all testing performed by [place] [address] CLIA: [id number] Hand Straightener: Cristofer Perry M.D. Creatinine mass conc 0.4 mg/dL Normal 0.40-1.10 [facility] Comment on above: Performed By: #### E RPED #### Unless otherwise noted, all testing performed by [place] [address] CLIA: [id number] Hand Straightener: Cristofer Perry M.D. Glucose mass conc 259 mg/dL High 70-99 [facility] Comment on above: Performed By: #### E RPED #### Unless otherwise noted, all testing performed by [place] [address] CLIA: [id number] Hand Straightener: Cristofer Perry M.D. Hematocrit Volume Fraction (Bld) 38 % Normal 38.0-51.0 [facility] Comment on above: Performed By: #### E RPED #### Unless otherwise noted, all testing performed by [place] [address] CLIA: [id number] Hand Straightener: Cristofer Perry M.D. Hemoglobin mass conc (Bld) 12.9 g/dL Normal 12.0-17.0 [facility] Comment on above: Performed By: #### E RPED #### Unless otherwise noted, all testing performed by [place] [address] CLIA: [id number] Hand Straightener: Cristofer Perry M.D. Ionized Calcm 1.14 mmol/L Normal 1.12-1.32 [facility] Comment on above: Performed By: #### E RPED #### Unless otherwise noted, all testing performed by [place] [address] CLIA: [id number] Hand Straightener: Cristofer Perry M.D. Potassium molar conc 4.3 mmol/L Normal 3.5-4.9 [facility] Comment on above: Performed By: #### E RPED #### Unless otherwise noted, all testing performed by [place] [address] CLIA: [id number] Hand Straightener: Cristofer Perry M.D. Sodium molar conc 137 mmol/L Normal 136-141 [facility] Comment on above: Performed By: #### E RPED #### Unless otherwise noted, all testing performed by [place] [address] CLIA: [id number] Hand Straightener: Cristofer Perry M.D. Urea nitrogen mass conc 9 mg/dL Normal 8-26 [facility] Comment on above: Performed By: #### E RPED #### Unless otherwise noted, all testing performed by [place] [address] CLIA: [id number] Hand Straightener: Cristofer Perry M.D. Chloride molar conc 102 mmol/L Normal 98-109 [facility] Comment on above: Performed By: #### E RPED #### Unless otherwise noted, all testing performed by [place] [address] CLIA: [id number] Hand Straightener: Cristofer Perry M.D. CO2 molar conc 21 mmol/L Low 23-32 [facility] Comment on above: Performed By: #### E RPED #### Unless otherwise noted, all testing performed by [place] [address] CLIA: [id number] Hand Straightener: Cristofer Perry M.D. Creatinine mass conc 0.4 mg/dL Normal 0.40-1.10 [facility] Comment on above: Performed By: #### E RPED #### Unless otherwise noted, all testing performed by [place] [address] CLIA: [id number] Hand Straightener: Cristofer Perry M.D. Glucose mass conc 350 mg/dL High 70-99 [facility] Comment on above: Performed By: #### E RPED #### Unless otherwise noted, all testing performed by [place] [address] CLIA: [id number] Hand Straightener: Cristofer Perry M.D. Hematocrit Volume Fraction (Bld) 39 % Normal 38.0-51.0 [facility] Comment on above: Performed By: #### E RPED #### Unless otherwise noted, all testing performed by [place] [address] CLIA: [id number] Hand Straightener: Cristofer Perry M.D. Hemoglobin mass conc (Bld) 13.3 g/dL Normal 12.0-17.0 [facility] Comment on above: Performed By: #### E RPED #### Unless otherwise noted, all testing performed by [address] [place], [place] [address] CLIA: [id number] Hand Straightener: Cristofer Perry M.D. Ionized Calcm 1.19 mmol/L Normal 1.12-1.32 [facility] Comment on above: Performed By: #### E RPED #### Unless otherwise noted, all testing performed by [place] [address] CLIA: [id number] Hand Straightener: Cristofer Perry M.D. Potassium molar conc 3.8 mmol/L Normal 3.5-4.9 [facility] Comment on above: Performed By: #### E RPED #### Unless otherwise noted, all testing performed by [place] [phone] CLIA: [id number] Hand Straightener: Cristofer Perry M.D. Sodium molar conc 137 mmol/L Normal 136-141 [facility] Comment on above: Performed By: #### E RPED #### Unless otherwise noted, all testing performed by [place] [phone] CLIA: [id number] Hand Straightener: Cristofer Perry M.D. Urea nitrogen mass conc 10 mg/dL Normal 8-26 [facility] Comment on above: Performed By: #### E RPED #### Unless otherwise noted, all testing performed by [place] [address] CLIA: [id number] Hand Straightener: Cristofer Perry M.D. EMERGENCY DEPARTMENTon 12-14 [place] [address] HEALTH INFORMATION MANAGEMENT EMERGENCY DEPARTMENT : Signed Patient: MELISSA KAURt:[id number] MRUN: [id number] : 1995 Sex: F Loc: ED ADM Date: 12/14/17 Room/Bed: DISC Date: History of Present Illness - General Chief Complaint: Pain Stated Complaint: PAIN IN LOWER BACK AND ABDOMEN Symptom onset: ONE WEEK HPI: PT. COMPLAINS OF LEFT ABDOMEN/FLANK PAIN STARTING ONE WEEK AGO. PT. DENIES ANY VOMITING OR DIARRHEA BUT HAS HAD NAUSEA. DENIES ANY DIFFICULTY VOIDING. Time Seen by Provider: 12/14/17 18:55 Nurses Notes Reviewed and Agreed With?: Yes Source: Patient Mode of Transport: Ambulatory - History of Present Illness Initial Comments: Patient Has had left-sided abdominal pain for the past week. She states it comes and goes. She describes it as sharp on the left side of her abdomen. It does not radiate. She denies any diarrhea or constipation. No dysuria or hematuria. She does admit to some nausea without vomiting. She took nothing for this at home. She has not had a fever. She has had a cholecystectomy in the past. - Related Data Home Medications Medication Instructions Recorded Confirmed Alogliptin Benzoate [Alogliptin] 25 mg PO DAILY 12/14/17 12/14/17 Glipizide 5 mg PO BID 12/14/17 12/14/17 Lisinopril [Prinivil] 5 mg PO DAILY 12/14/17 12/14/17 Metformin HCl [Glucophage] 500 mg PO BID 12/14/17 12/14/17 Allergies Allergy/AdvReac Type Severity Reaction Status Date / Time No Known Allergies Allergy Verified 12/14/17 18:38 Review of System - GI Gastrointestinal/Abdomi nal: Present: see HPI - All Others/Exceptions All Other Systems: Reviewed and Negative Except Where Noted in Documentation ED PMH/Social HX/Family HX - Respiratory Hx Respiratory Disorders: No - Cardiovascular Hx Cardiac Disorders: Yes PMH--Cardiovascular: HTN - Neurological Hx Neurological Disorder: No - Endocrine Hx Endocrine Disorders: Yes PMH--Endocrine History: Diabetes Type 2 - Gastrointestinal Hx Gastrointestinal Disorders: Yes Past Surgical Hx--GI: Lap. Cholecystectomy - Genitourinary Hx Genitourinary Disorders: Yes PMH--Genitourinary: UTI - Musculoskeletal Hx Musculoskeletal Disorders: No - Reproductive ?: No Hx Reproductive Disorders: No - Psychological Hx Psychosocial Problems: Yes Other Psychological PMH: MOOD DISORDER PER PT. - HEENT Hx Ear, Nose Throat Disorders: No - Cancer Hx Cancer: No - Social History Highest Educational Level: High School Able to Read: Yes Able to Write: Yes Smoking Status: Never Smoked Hx Chewing Tobacco Use: No Alcohol Use: Never Any recreational drug use reported?: No Feels Threatened In Home Environment: No Feels Threatened In a Relationship: No Hx Physical Abuse: No Hx Emotional Abuse: No Hx Suspected Abuse: No - Baldwin/Gender ID What is your current Gender Identity? Choose all that Apply: Female - Suicide/Homicide Screen Past 2 weeks, Have you felt down, depressed or hopeless?: No Past 2 Weeks, Have you had thoughts of killing yourself or others?: No In your lifetime, Have you attempted to kill yourself or others?: No In your lifetime, When did this Happen?: Not Applicable General Exam - General Limitations: Complains of: no limitations Constitutional: Present: Well developed, Well nourished, well hydrated, Non-toxic - Head Head exam: Present: atraumatic, normocephalic, normal inspection - Eye Eye exam: Present: normal apperance, normal accomodation, EOMI Pupils: Present: PERRL - ENT ENT exam: Present: normal orophraynx, mucous membranes moist, No Nasal Discharge, normal external ear exam, Posterior Pharynx Non-erethemetous - Respiratory Respiratory exam: Present: lungs clear equal bilaterally. Absent: respiratory distress, wheezes, rales, rhonchi, accessory muscle use - Cardiovascular Cardiovascular Exam: Present: regular rate, normal rhythm, normal heart sounds. Absent: murmur, rubs, gallop, clicks - GI/Abdominal GI/Abdominal exam: Present: soft, normal bowel sounds, tenderness (left side of abdomen). Absent: guarding, rebound, rigid, mass, bruit - Extremities Exam Extremities exam: Present: normal inspection, full ROM, neurovascularly intact - Back Exam Back exam: Present: normal inspection, full ROM. Absent: tenderness - Neurological Exam Neurological exam: Present: alert, oriented X3, CN II-XII intact - Skin Skin Color: Present: Normal, [place] Skin exam: Present: warm, dry - Vital Signs Vital Signs 12/14/17 18:20 Temperature 99.6 F H Pulse Rate [ 122 H Pulse Ox] Respiratory 20 Rate Blood Pressure 165/99 H [Right Arm] O2 Sat by Pulse 98 Oximetry(%) Abdominal pain MDM - Lab Data Lab Results 12/14/17 12/14/17 Range/Units 19:25 19:25 Urine Color yellow (Yellow) Urine Appearance sl.cloudy (Clear) Urine pH 5 Ur Specific [place] 1.020 (1.015-1.025) Urine Protein Negative (Negative) Urine Ketones Trace (Negative) Urine Blood 10 A (Negative) Urine Nitrite Negative (Negative) Urine Bilirubin Negative (Negative) Urine Urobilinogen Normal (Normal-1.0) mg/dL Ur Leukocyte Esterase Trace A (Negative) Urine RBC 2-5 (0 - 2) /hpf Urine WBC 2-5 (0 - 6) /hpf Ur Epithelial Cells >15 (0 - 6) /lpf Urine Bacteria 2+ (0 - 1+) /hpf Urine Glucose 1000 A (Negative) Urine Test Negative (Negative) Orders: Medications Discontinued Medications Dicyclomine HCl (Bentyl 10 Mg/Ml Injection) 20 mg IM ONE ONE Stop: 12/14/17 19:06 Last Admin: 12/14/17 19:52 Dose: 20 mg Labs 12/14/17 19:05 ACUTE ABDOMEN [DIAG] Stat Dicyclomine HCl [Bentyl 10 mg/ml Injection] 20 mg IM ONE ONE 12/14/17 19:25 (Urine) [IMM] Stat UA w/micrscopic-reflex culture [URN] Stat 12/14/17 19:49 Urine Culture, Routine [MIC2] Stat - Radiology Data Radiology Impressions Acute Abdomen Series 12/14/17 19:05 IMPRESSION: Increased air-fluid level and gaseous prominence of the colon, these could be due to acute diarrheal state. No high-grade bowel obstruction. May obtain CT of the abdomen pelvis to further clarify these findings. Normal chest. - Medical Decision Making Patient is given intramuscular Bentyl. Urinalysis is negative for infection or blood. Acute abdominal series reveals air-fluid leveling gaseous prominence of the colon. They remarked that this could be due to an acute diarrheal state. There is no high grade obstruction. I don't feel the patient requires any further testing. She is lying comfortably in the bed. Her vital signs are unremarkable. I will send the patient home with Phenergan and Bentyl orally. She needs to follow up with her primary care physician. ED Discharge Summary - Discharge Data Clinical Impression: Abdominal pain Condition: Good Disposition: 01 HOME, SELF-CARE Admit is Medically Necessary, Anticipated Stay >2 Midnights:: No Referrals: MILLY SINCLAIR [Primary Care Provider] - Home Medications: Ambulatory Orders Medication Instructions Recorded Alogliptin Benzoate [Alogliptin] 25 mg PO DAILY 12/14/17 Glipizide 5 mg PO BID 12/14/17 Lisinopril [Prinivil] 5 mg PO DAILY 12/14/17 Metformin HCl [Glucophage] 500 mg PO BID 12/14/17 Time Seen by Provider: 12/14/17 18:55 - Dictation Amendments/Documentatio n: Convergin Document Only Electronically Generated By: SARAI PAULA MD Generated Date/Time: 12/14/171934 Electronically Signed By: SARAI PAULA MD Signed Date/Time 12/14/172023 Co Signed Electronically By: Tamera Signed Date/Time: CC: MILLY SINCLAIR [facility] LURNCon 12-14-2017 LURNC Urine Culture, Routi ne = Final reportPerformed at: - Lab[address] [id number] Director: Korey Corral PhD, Phone: [phone] REPORT: Previous result was SEE BELOW at 01:05 on 12/17/17Urine Cult Result 1 = SEE BELOWEscherichia coliGreater than 100,000 colony forming unitsper mLUrine Cult Result 2 = NPUrine Cult Result 3 = NPUrine Cult Result 4 = NPAntimicrobial Suscept = Comment S = Susceptible; I = Intermediate; R = Resistant P = Positive; N = Negative MICS are expressed in micrograms per mL Antibiotic RSLT#1 RSLT#2 RSLT#3 RSLT#4Amoxicillin/Clavu lanic Acid SAmpicillin RCefepime SCeftriaxone SCefuroxime SCiprofloxacin RErtapenem SGentamicin SImipenem SLevofloxacin RMeropenem SNitrofurantoin SPiperacillin/Tazobacta m STetracycline STobramycin STrimethoprim/Sulfa SPerformed at: CB - [facility] [address] [id number] Director: Korey Corral PhD, Phone: [phone] Urine Culture = urine, void Normal [facility] Comment on above: Performed By: #### M IC2 ####[place] [address] (Urine)on 12-15-19 18 HCG ( test) Ql (U) Negative Normal Negative [facility] Comment on above: Performed By: #### P REGU ####[place] [id number] UA w/Micrscopic-reflex cultu reon 12-14-2017 Appearance sl.cloudy Normal Clear [facility] Comment on above: Performed By: #### U [facility] ####[address] [address] Bacteria 2+ /hpf Normal 0 - 1+ [facility] Comment on above: Performed By: #### U [facility] ####[address] [address] Bilirubin Negative Normal Negative [facility] Comment on above: Performed By: #### U [facility] ####[address] [address] Blood 10 Abnormal Negative [facility] Comment on above: Performed By: #### U [facility] ####[address] [address] Casts BLOCK INSPECTOR Normal [facility] Comment on above: Performed By: #### U [facility] ####[address] [address] Casts. BLOCK INSPECTOR Normal [facility] Comment on above: Performed By: #### U [facility] ####[address] [address] Color yellow Normal Yellow [facility] Comment on above: Performed By: #### U [facility] ####[address] [address] Crystals BLOCK INSPECTOR Normal [facility] Comment on above: Performed By: #### U [facility] ####[address] [address] Crystals. BLOCK INSPECTOR Normal [facility] Comment on above: Performed By: #### U [facility] ####[address] [address] Epithelial Cells >15 Normal 0 - 6 [facility] Comment on above: Performed By: #### U [facility]RC ####[address] [address] Glucose 1000 Abnormal Negative [facility] Comment on above: Performed By: #### U [facility] ####[address] [address] Ketones Trace Normal Negative [facility] Comment on above: Performed By: #### U [facility] ####[address] [address] Leukocytes Esterase Trace Abnormal Negative [facility] Comment on above: Performed By: #### U [facility] ####[address] [address] Mucus BLOCK INSPECTOR Normal [facility] Comment on above: Performed By: #### U [facility] ####[address] [address] Nitrites Negative Normal Negative [facility] Comment on above: Performed By: #### U [facility] ####[address] [address] pH 5 Normal [facility] Comment on above: Performed By: #### U [facility] ####[address] [address] Protein Negative Normal Negative [facility] Comment on above: Performed By: #### U [facility] ####[address] [address] Specific [place] 1.020 Normal 1.015-1.025 [facility] Comment on above: Performed By: #### U [facility] ####[address] [address] Trichomonas BLOCK INSPECTOR Normal [facility] Comment on above: Performed By: #### U [facility] ####[address] [address] Urine, erythrocytes 2-5 Normal 0 - 2 [facility] Comment on above: Performed By: #### U [facility] ####[address] [address] Urobilinogen NORMAL Normal Normal-1.0 [facility] Comment on above: Performed By: #### U [facility] ####[address] [address] WBC 2-5 Normal 0 - 6 [facility] Comment on above: Performed By: #### U [facility] ####[address] [address] Yeast BLOCK INSPECTOR Normal [facility] Comment on above: Performed By: #### U [facility] ####[address] [address] Other BLOCK INSPECTOR Normal [facility] Comment on above: Performed By: #### U [facility] ####[address] [address] Basic Metabolic Panelon 06-2 Anion gap 10.0 mmol/L Normal 6.0-18.0 [facility] Comment on above: Result Comment: PLEA SE NOTE:The calculated Anion Gap(AGAP) does not include Potassium. Performed By: #### 6 9405-9, 19631-9z5, 20914-7 ####[facility], [address] [place], [place]. Calcium 9.2 mg/dL Normal 8.9-10.3 [facility] Comment on above: Performed By: #### 6 9405-9, 27195-5o6, 78219-5 ####[facility], [address] [place], [place]. Chloride 103 mmol/L Normal 98-107 [facility] Comment on above: Performed By: #### 6 9405-9, 00487-7g9, 10070-4 ####[facility], [address] [place], [place]. CO2 26 mmol/L Normal 22-32 [facility] Comment on above: Performed By: #### 6 9405-9, 74701-3q6, 87974-3 ####[facility], [address] [place], [place]. Creatinine 0.82 mg/dL Normal 0.66-1.30 [facility] Comment on above: Performed By: #### 6 9405-9, 06487-3k3, 07118-2 ####[facility], [address] [place], [place]. Glucose mass conc 178 mg/dL High 70-110 [facility] Comment on above: Performed By: #### 6 9405-9, 41935-7k3, 36510-1 ####[facility], [address] [place], [place]. Potassium molar conc 3.5 mmol/L Low 3.6-5.1 [place] Comment on above: Performed By: #### 6 9405-9, 05540-7s5, 41869-5 ####[facility], [address] [place], [place]. Sodium 139 mmol/L Normal 136-145 [facility] Comment on above: Performed By: #### 6 9405-9, 25804-1r2, 42066-2 ####[facility], [address] [place], [place]. Urea nitrogen 16 mg/dL Normal 8-20 [facility] Comment on above: Performed By: #### 6 9405-9, 47722-7a9, 57098-1 ####[facility], [address] [place] [address]. CBC with Differentialon - Basophils Auto #/vol (Bld) 0.3 % Normal 0.0-2.0 [facility] Comment on above: Performed By: #### 5 7021-8 ####[facility], [address] [place] [address], [place], [place]. Basophils Auto #/vol (Bld) 0.00 thou/mcL Normal 0.00-0.20 [facility] Comment on above: Performed By: #### 5 7021-8 ####[facility], [address] [place] [address]. Eosinophils 0.10 thou/mcL Normal 0.00-0.70 [facility] Comment on above: Performed By: #### 5 7021-8 ####[facility], [address] [place] [address]. Eosinophils/100 leukocytes 1.3 % Normal 0.0-7.0 [facility] Comment on above: Performed By: #### 5 7021-8 ####[facility], [address] [place], [place]. Erythrocyte distribution width Auto Ratio (RBC) 13.8 % Normal 11.0-14.8 [facility] Comment on above: Performed By: #### 5 7021-8 ####[facility], [address] [place], [place]. Erythrocytes (RBC) 5.24 million/mcL High 3.80-5.10 [facility] Comment on above: Performed By: #### 7021-8 ####[facility], [address] [place], [place]. Hematocrit (HCT) 41.0 % Normal 35.0-45.0 [facility] Comment on above: Performed By: #### 5 7021-8 ####[facility], [address] [place], [place]. Hemoglobin mass conc (Bld) 14.0 g/dL Normal 12.0-16.0 [facility] Comment on above: Performed By: #### 5 7021-8 ####[facility], [facility] [place], [place]. Lymphocytes 2.60 thou/mcL Normal 1.00-4.80 [facility] Comment on above: Performed By: #### 5 7021-8 ####[facility], [address] [place], [place]. Lymphocytes/100 leukocytes 31.2 % Normal 22.0-44.0 [facility] Comment on above: Performed By: #### 5 7021-8 ####[facility], [address] [place], [place]. MCH 26.8 Picograms Low 27.0-34.0 [facility] Comment on above: Performed By: #### 5 7021-8 ####[facility], [address] [place], [place]. MCHC mass conc (RBC) 34.2 g/dL Normal 32.0-36.[address] [facility] Comment on above: Performed By: #### 5 7021-8 ####[facility], [address] [place], [place]. MCV 78.3 fL Low 80.0-97.0 [facility] Comment on above: Performed By: #### 5 7021-8 ####[facility], [address] [facility] [facility] [address] [place], [place]. Monocytes 0.50 thou/mcL Normal 0.00-0.90 [facility] Comment on above: Performed By: #### 5 7021-8 ####[facility], [facility] [address] [place], [place]. Monocytes/100 leukocytes 6.0 % Normal 0.0-12.0 [facility] Comment on above: Performed By: #### 7021-8 ####[facility], [facility] [address] [address] [place], [place]. Neutrophils 5.20 thou/mcL Normal 1.80-7.70 [facility] Comment on above: Performed By: #### 5 7021-8 ####[facility], [facility] [address] [address] [address] [place], [place]. Neutrophils/100 WBC Auto (Bld) 61.2 % Normal 40.0-70.0 [facility] Comment on above: Performed By: #### 5 7021-8 ####[facility], [facility] [address] [address] [place], [place]. Platelet mean volume (PMV) 8.2 fL Normal 6.2-12.1 [facility] Comment on above: Performed By: #### 5 7021-8 ####[facility], [address] [facility] [address] [place]. Platelets 265 thou/mcL Normal 142-424 [facility] Comment on above: Performed By: #### 5 7021-8 ####[facility], [address] [facility], [place], [place]. WBC (Leukocytes) 8.4 thou/mcL Normal 4.6-10.2 [facility] Comment on above: Performed By: #### 5 7021-8 ####[facility], [address] [place], [place]. Depart Summaryon 11-30-2017 Depart Summary EMERGENCY DEPARTMENT DISCHARGE SUMMARYPATIENT NAME:MELISSA BYRNE MRN: ([id number]: 22 Years SEX: Female PHONE:[phone]: 11/29/2017 7:40 PM : 1995 ATTENDING PHYSICIAN:Christopher Gracia MD PCP: Physician, PCP Unknown CHIEF COMPLAINT: pelvic pain Allergies NKAProblems Active Hypertension Mood disorder Diabetes DISCHARGE DIAGNOSIS: Ovarian cyst; Pelvic pain DISCHARGE INSTRUCTIONS: '- Ovarian Cyst (D9507) ED PHYSICIAN DOCUMENTATION: History of Present Illness?I introduced myself as a Physician Lace Stripper. Attending physician: Dr. Morales have performed a medical screening exam on this patient.? CC:??low abd pain? Brief HPI/ROS: Patient is a 22 year old white female with history of diabetes and mood disorder.?Patient presents to the emergency department today with complaint of lower abdomen cramping ongoing for 3 days. Patient states her pain has been intermittent and worse at left side compared to right. No burning with urination or dysuria. No vaginal bleeding or discharge. No fevers at home. Patient feels nauseous for last 3 days but no vomiting. No diarrhea. Her last BM was today. Her LMP was 11/13/17, which was heavy at the beginning.???Brief Exam:CONSTITUTIONAL: 22-year-old white female sitting up in chair. Patient coming by significant other.?No acute distress. Stable.RESP: LCTA, normal excursion. No stridor or droolingCARDIAC: RRRSKIN: [place], warm, dryABD: Diffuse tenderness to palpation over lower abdomen.? Plan:?CBC, BMP,?urinalysis, urine test, pelvic ultrasound? Patient will await placement MAIN department? SCRIBE USED? ?YesSCRIBE ATTESTATION: I, [Catarino Cohen?], am serving as a scribe to document services personally performed by [Davonte GOODWIN] based on the patient's responses to questions from the provider and the provider's statement to me. This chart accurately reflects the work and decisions made by me. DISPOSITION:Time of Departure From ER 11/29/2017 23:26 Discharge/Transfer From ER Home 01 MEDICATION LISTS: CURRENT MEDICATION LISTalbuterol (Proventil 2.5 mg/3 mL (0.083%) inhalation solution) 3 Milliliter Nebulized Medication every 6 hours.alogliptin (Alogliptin) By Mouth once a day.ARIPiprazole (Abilify) By Mouth once a day.cephalexin (Keflex monohydrate 500 mg oral capsule) 1 Capsule By Mouth Twice a day for 5 Days. Refills: 0.GlipiZIDE By Mouth once a day.HydrOXYzine (HydrOXYzine pamoate) By Mouth 4 Times/Day.lisinopril (lisinopril 10 mg oral tablet) 1 Tab(s) By Mouth once a day.MetFORMIN By Mouth.QUEtiapine (SEROquel) By Mouth. MEDICATIONS GIVEN DURING MEDICAL VISITibuprofen 600 mg last dose given on 11/29/2017 at 21:32 Route: By Mouth Maximum of 3200 mg / 24 hr LAB RESULTS:LABORATORY TESTS: Pending Lab Result(s): Date Order Results 11/29/2017 20:26 Culture Urine + Susceptibility InProcess Abnormal Lab Result(s): Date Order Results 11/29/2017 20:14 Specific [place] Urine POCT N 1.030 11/29/2017 20:14 pH Urine POCT N 5 11/29/2017 20:17 Appearance Urine A HAZY 11/29/2017 20:17 Specific [place] Urine H 1.036 11/29/2017 20:17 Glucose Urine A 500MG/DL 11/29/2017 20:17 Ketones Urine A 5MG/DL 11/29/2017 20:17 Nitrite Urine A POSITIVE 11/29/2017 20:17 Bacteria Urine A RARE 11/29/2017 20:17 Squamous Epithelial Cells Urine A MANY 11/29/2017 20:17 Mucous Urine A RARE 11/29/2017 22:39 Potassium Level L 3.5 mMol/L 11/29/2017 22:39 Glucose Level H 178 mg/dL 11/29/2017 22:39 Red Blood Cell Count H 5.24 million/mcL 11/29/2017 22:39 MCV L 78.3 FL 11/29/2017 22:39 MCH L 26.8 Picograms RADIOLOGY:RADIOLOGY RESULT(S) (Please contact Medical Records office for further information): 11/29/2017 21:04 US Pelvis Non-OB Complete Study: Transabdominal pelvic ultrasound, transvaginal pelvic ultrasound and complete Doppler ultrasound of the pelvis dated 11/29/2017 9:19 PMCOMPARISON: September 27, 2017HISTORY: Abdominal Pain Diffuse, lower abdominal pain and vaginal pain. Pelvic pain. Evaluate for ovarian torsion. 3 days of left lower quadrant pain. Previous intrauterine device, removed November 12, 2017.TECHNIQUE: Transabdominal pelvic ultrasound, transvaginal pelvic ultrasound and complete Doppler ultrasound of the pelvis were performed. Grayscale evaluation, color Doppler evaluation, arterial spectral Doppler evaluation and venous spectral Doppler evaluation was done.FINDINGS:Urinary bladder: Partially distended with artifact. Limited evaluation without gross abnormality.Uterus: 9.6 x 4.7 x 4.8 cm. Cervical complex nonvascular new or newly seen 10 x 10 x 7 mm lesion, most likely a complex nabothian cyst although nonspecific. There is an additional anechoic 5 mm cyst which could be endometrial or adjacent to the endometrium, lower uterine segment/cervical junction. This was present previously suggesting is most likely a nabothian cyst.Endometrium: 11 mm. Intrauterine device has been removed.RIGHT ovary: 37 x 29 x 26 mm. No right ovarian or adnexal lesion identified.LEFT ovary: 46 x 27 x 26 mm. 18 mm anechoic cyst.Free fluid: None.Doppler evaluation: The RIGHT ovary has color Doppler, arterial spectral Doppler and venous spectral Doppler blood flow. The LEFT ovary has color Doppler, arterial spectral Doppler and venous spectral Doppler blood flow.IMPRESSION: 1. The ovaries have documented Doppler blood flow.2. 18 mm anechoic left ovarian cyst, nonspecific, statistically most likely a dominant follicle or functional cyst in a patient this age. Advise correlation with status.3. Interval removal of intrauterine device. 5 mm lower uterine segment/cervical junction cyst, nonspecific but probably a nabothian cyst adjacent to the endometrium, also present previously.4. New or newly seen 10 mm cervical complex nonvascular lesion which is probably a complex nabothian cyst. As this was not visible on the prior study, follow-up is suggested.5. No free fluid. No extraovarian adnexal mass.Immediate final results were provided per protocol.Ang Rankin thanks you for the opportunity to care for your patient. Workstation ID: [id number] 11/29/2017 21:04 US Transvaginal Study: Transabdominal pelvic ultrasound, transvaginal pelvic ultrasound and complete Doppler ultrasound of the pelvis dated 11/29/2017 9:19 PMCOMPARISON: September 27, 2017HISTORY: Abdominal Pain Diffuse, lower abdominal pain and vaginal pain. Pelvic pain. Evaluate for ovarian torsion. 3 days of left lower quadrant pain. Previous intrauterine device, removed November 12, 2017.TECHNIQUE: Transabdominal pelvic ultrasound, transvaginal pelvic ultrasound and complete Doppler ultrasound of the pelvis were performed. Grayscale evaluation, color Doppler evaluation, arterial spectral Doppler evaluation and venous spectral Doppler evaluation was done.FINDINGS:Urinary bladder: Partially distended with artifact. Limited evaluation without gross abnormality.Uterus: 9.6 x 4.7 x 4.8 cm. Cervical complex nonvascular new or newly seen 10 x 10 x 7 mm lesion, most likely a complex nabothian cyst although nonspecific. There is an additional anechoic 5 mm cyst which could be endometrial or adjacent to the endometrium, lower uterine segment/cervical junction. This was present previously suggesting is most likely a nabothian cyst.Endometrium: 11 mm. Intrauterine device has been removed.RIGHT ovary: 37 x 29 x 26 mm. No right ovarian or adnexal lesion identified.LEFT ovary: 46 x 27 x 26 mm. 18 mm anechoic cyst.Free fluid: None.Doppler evaluation: The RIGHT ovary has color Doppler, arterial spectral Doppler and venous spectral Doppler blood flow. The LEFT ovary has color Doppler, arterial spectral Doppler and venous spectral Doppler blood flow.IMPRESSION: 1. The ovaries have documented Doppler blood flow.2. 18 mm anechoic left ovarian cyst, nonspecific, statistically most likely a dominant follicle or functional cyst in a patient this age. Advise correlation with status.3. Interval removal of intrauterine device. 5 mm lower uterine segment/cervical junction cyst, nonspecific but probably a nabothian cyst adjacent to the endometrium, also present previously.4. New or newly seen 10 mm cervical complex nonvascular lesion which is probably a complex nabothian cyst. As this was not visible on the prior study, follow-up is suggested.5. No free fluid. No extraovarian adnexal mass.Immediate final results were provided per protocol.Ang Rankin thanks you for the opportunity to care for your patient. Workstation ID: [id number] 11/29/2017 21:04 NV Duplex Abd/Pelvis Retroper Complete Study: Transabdominal pelvic ultrasound, transvaginal pelvic ultrasound and complete Doppler ultrasound of the pelvis dated 11/29/2017 9:19 PMCOMPARISON: September 27, 2017HISTORY: Abdominal Pain Diffuse, lower abdominal pain and vaginal pain. Pelvic pain. Evaluate for ovarian torsion. 3 days of left lower quadrant pain. Previous intrauterine device, removed November 12, 2017.TECHNIQUE: Transabdominal pelvic ultrasound, transvaginal pelvic ultrasound and complete Doppler ultrasound of the pelvis were performed. Grayscale evaluation, color Doppler evaluation, arterial spectral Doppler evaluation and venous spectral Doppler evaluation was done.FINDINGS:Urinary bladder: Partially distended with artifact. Limited evaluation without gross abnormality.Uterus: 9.6 x 4.7 x 4.8 cm. Cervical complex nonvascular new or newly seen 10 x 10 x 7 mm lesion, most likely a complex nabothian cyst although nonspecific. There is an additional anechoic 5 mm cyst which could be endometrial or adjacent to the endometrium, lower uterine segment/cervical junction. This was present previously suggesting is most likely a nabothian cyst.Endometrium: 11 mm. Intrauterine device has been removed.RIGHT ovary: 37 x 29 x 26 mm. No right ovarian or adnexal lesion identified.LEFT ovary: 46 x 27 x 26 mm. 18 mm anechoic cyst.Free fluid: None.Doppler evaluation: The RIGHT ovary has color Doppler, arterial spectral Doppler and venous spectral Doppler blood flow. The LEFT ovary has color Doppler, arterial spectral Doppler and venous spectral Doppler blood flow.IMPRESSION: 1. The ovaries have documented Doppler blood flow.2. 18 mm anechoic left ovarian cyst, nonspecific, statistically most likely a dominant follicle or functional cyst in a patient this age. Advise correlation with status.3. Interval removal of intrauterine device. 5 mm lower uterine segment/cervical junction cyst, nonspecific but probably a nabothian cyst adjacent to the endometrium, also present previously.4. New or newly seen 10 mm cervical complex nonvascular lesion which is probably a complex nabothian cyst. As this was not visible on the prior study, follow-up is suggested.5. No free fluid. No extraovarian adnexal mass.Immediate final results were provided per protocol.[facility] [employer] thanks you for the opportunity to care for your patient. Workstation ID: [id number] FOLLOW UP:FOLLOW-UP APPOINTMENTS: Provider: Specialty: Address: Date: Follow up with primary care provider 3 to 4 days Provider: Specialty: Address: Date: Return to Emergency Department Follow-up as needed [facility] ED Pat Abebeon 11-30-2017 ED [place] [id number] Emergency Department Discharge Instructions MELISSA BYRNE , Please provide this information to your Primary Care/Specialist Name : MELISSA BYRNE Current Date : 11/29/2017 23:26:24DOB : 1995 12:00 PM Primary Care Physician: Physician, PCP Unknown Diagnosis : Ovarian cyst; Pelvic pain Follow-Up Instructions:MELISSA BYRNE has been given these follow-up instructions: FOLLOW-UP APPOINTMENTS: Provider: Specialty: Address: Date: Follow up with primary care provider 3 to 4 days Provider: Specialty: Address: Date: Return to Emergency Department Follow-up as needed Laboratory Orders: Name: Status: Urinalysis Manual POCT (CO) Completed Urinalysis with Microscopic Automatic with Reflex Completed Urine Test POCT (CO) Completed Basic Metabolic Panel Completed CBC with Differential Completed Urinalysis Microscopic Completed GFRaa Completed GFRbb Completed Radiology Orders: Name: Status: US Pelvis Non-OB Complete Completed US Transvaginal Completed NV Duplex Abd/Pelvis Retroper Complete Completed Diagnostic Tests: None Ordered Procedure(s) and Patient Education(s) : '- Ovarian Cyst (D9507) EMERGENCY SERVICES MEDICATION LISTLista de Medicaciones de los Servicios de Emergencia Name MELISSA BYRNE MRN ([facility])-[id number] [facility] [id number] PLEASE READ THE FOLLOWING REGARDING YOUR MEDICATIONS Based on the information available during your visit we have given you the medication instructions below. Continue taking medications you took prior to your visit unless you have been told to change. Please share this information with your own doctor. Carry a list of your medications with you in case of an emergency. Update it when medications are stopped, doses are changed, or new medications (including eohf-yxj-uojhkmw products) are added. If you have any questions, check with your doctor. Por la informaci??n disponible ai martinez visita, las instrucciones de medicaci??n aparecen debajo. Favor de continuar tomando las medicaciones Ud. bernadette?? antes de martinez visita por lo menos que hay cambios. Favor de compartir esta informaci??n con martinez medico. Lleva sandra lista de medicaciones consigo por nirali de emergenc??a. Actualiza la lista cuando Ud. neeraj de richard las medicaciones, si cambian las dosis, o si hay nuevas medicaciones a??adidas (incluyendo medicaciones vendidas sin prescripci??n). Favor de preguntar a martinez medico por cualquier kristen. THESE ARE THE MEDICATIONS YOU SHOULD BE TAKINGalbuterol (Proventil 2.5 mg/3 mL (0.083%) inhalation solution) 3 Milliliter Nebulized Medication every 6 hours.alogliptin (Alogliptin) By Mouth once a day.ARIPiprazole (Abilify) By Mouth once a day.cephalexin (Keflex monohydrate 500 mg oral capsule) 1 Capsule By Mouth Twice a day for 5 Days. Refills: 0.GlipiZIDE By Mouth once a day.HydrOXYzine (HydrOXYzine pamoate) By Mouth 4 Times/Day.lisinopril (lisinopril 10 mg oral tablet) 1 Tab(s) By Mouth once a day.MetFORMIN By Mouth.QUEtiapine (SEROquel) By Mouth.MEDICATIONS GIVEN DURING MEDICAL VISITibuprofen 600 mg last dose given on 11/29/2017 at 21:32 Route: By Mouth Maximum of 3200 mg / 24 hr NON-MEDICATION PRESCRIPTION SCHEDULING PHONE NUMBER: MEDICATION CHANGE DETAILS (Not your Final Home Medication List) During the course of your visit, your home medication list was updated with the most current information. The details of those changes are shown below: NEW MEDICATIONSPrinted Prescriptionscephalexin (Keflex monohydrate 500 mg oral capsule) 1 Capsule By Mouth Twice a day for 5 Days. Refills: 0.Comment ____UPDATED MEDICATIONSNoneUNCHANGE D MEDICATIONSOther Medicationsalbuterol (Proventil 2.5 mg/3 mL (0.083%) inhalation solution) 3 Milliliter Nebulized Medication every 6 hours.Comment alogliptin (Alogliptin) By Mouth once a day.Comment ARIPiprazole (Abilify) By Mouth once a day.Comment GlipiZIDE By Mouth once a day.Comment HydrOXYzine (HydrOXYzine pamoate) By Mouth 4 Times/Day.Comment lisinopril (lisinopril 10 mg oral tablet) 1 Tab(s) By Mouth once a day.Comment MetFORMIN By Mouth.Comment QUEtiapine (SEROquel) By Mouth.Comment STOP TAKING THESE MEDICATIONSNoneDO NOT TAKE UNTIL YOU TALK TO YOUR DOCTORNone [place] [address] [facility] Department Discharge Instructions Name: MELISSA BYRNE AMRITA Current Date: 11/29/2017 23:26:24 : 1995 12:00 PM Primary Physician: Physician, PCP Unknown We would like to thank you for choosing [facility] for your emergency medical needs. We examined and treated you today on an emergency basis only. This was not a substitute for, or an effort to provide, complete medical care. In most cases, you must let your doctor (or the doctor we referred you to) check you again. Tell your doctor about any new or lasting problems. We cannot recognize and treat all injuries or illnesses in one emergency department visit. After you leave, you should follow the directions attached. Instructions for obtaining X-rays:When following up with your doctor, you may need to take copies of your x-rays that were done in the Emergency Department. If you didn't receive these upon your discharge from the emergency department, please call . When the final report becomes available and it is reviewed, the emergency department will attempt to contact you if there are any changes in your instructions. It is important that you leave accurate information with us on how to contact you. IF you cannot be contacted, YOU must contact the follow-up doctor that you were assigned to make sure that the final official x-ray report does not require a change in your treatment. Instructions for obtaining medical records:If you need a copy of your medical records for follow-up, please contact the Health Information Management Department at . Their office hours are 8 AM- 4:30 PM, Friday through Friday. Please note: Results are not immediately available. Please allow a minimum of 36 hours for documentation and results.If you were prescribed an antibiotic:Antibiotics are life-saving drugs and they need to be used properly. Your team might change your antibiotic because test results show that a different antibiotic would be better to treat your infection. Like all medications, antibiotics have side effects. Some can be serious. This includes the risk of getting an antibiotic-resistant infection later, which may be difficult to treat. Remember to take your antibiotics as prescribed. If you have any questions please talk to your healthcare team.Seatbelts:There is no doubt that seatbelts save lives. Every day, people without seatbelts have more serious injuries. Have everyone buckle up, using age appropriate seatbelts or car seats, to reduce their risk of injury.Smoking:If you do smoke, we encourage you to stop. Smoking affects all aspects of your health and the health of those around you. Call the [place] [employer] at 9-520-AEIF-[place] or the [place] [employer] at 7-925-NPK-2348 for more information.High blood pressure: Your screening blood pressure today was 114 mm Hg / . Hypertension (high blood pressure) is blood pressure over 120/80. People with hypertension should contact their primary care provider within 30 days to follow up. Check your patient portal for additional blood pressure information.Immunizatio ns:Immunization is a way to protect against deadly infections. Discuss this with your child's business liaison manager, or Public Health Department. Your family practice doctor can determine if you need pneumonia or flu vaccine. The [facility] can be reached at .Domestic Violence:If you are a victim of domestic violence (physical, verbal, or emotional), you are not alone. Discuss this with your physician or a friend and call Choices Hotline ( for assistance and support.You are the most important factor in your recovery. Follow the provided instructions carefully. Take your medications as prescribed. Most importantly, see a doctor again as discussed. If you have problems that we have not discussed, call or visit your doctor right away. If you do not have a primary care physician, we have provided one for you to follow up with. When you call for an appointment, please inform them that you were seen in the emergency department and the date of your visit. If you are unable to reach your doctor and are still experiencing problems, return to the emergency department. For assistance finding a primary care physician, call the Physician Referral Line at .Suicide Hotline:Your mental and emotional well-being is important. If you are in a mental health crisis or are having thoughts of suicide, please call the nationwide suicide hotline, anytime day or night, at 4-511-717-EBPF. Pharmacy Information:Below is a list of 24 hour pharmacies that we are aware of. We suggest that you call the specific pharmacy for their hours before traveling to a location. Hours may vary on holidays. [facility] [address] [address] [phone] [address] [phone] [address] [phone] [address] [phone] [place] [address] [phone] [place] [address] [phone] [place] [address] [phone] Take all medications as directed. If you need prescription assistance, contact the following agencies:?? Partnership for Prescription Assistance at or www.pparx.org?? [facility] at or www.AIMbestrx.org?? www.[employer] is a site with many valuable coupons Patient Education Materials MELSISA BYRNE has been given the following patient education materials: Ovarian Cyst The ovaries are small organs that are on each side of the uterus. The ovaries are the organs that produce the female hormones, estrogen and progesterone. An ovarian cyst is a sac filled with fluid that can vary in its size. It is normal for a small cyst to form in women who are in the childbearing age and who have menstrual periods. This type of cyst is called a follicle cyst that becomes an ovulation cyst (corpus luteum cyst) after it produces the women?s egg. It later goes away on its own if the woman does not become . There are other kinds of ovarian cysts that may cause problems and may need to be treated. The most serious problem is a cyst with cancer. It should be noted that menopausal women who have an ovarian cyst are at a higher risk of it being a cancer cyst. They should be evaluated very quickly, thoroughly and followed closely. This is especially true in menopausal women because of the high rate of ovarian cancer in women in menopause.CAUSES AND TYPES OF OVARIAN CYSTS:?? FUNCTIONAL CYST: The follicle/corpus luteum cyst is a functional cyst that occurs every month during ovulation with the menstrual cycle. They go away with the next menstrual cycle if the woman does not get . Usually, there are no symptoms with a functional cyst.?? ENDOMETRIOMA CYST: This cyst develops from the lining of the uterus tissue. This cyst gets in or on the ovary. It grows every month from the bleeding during the menstrual period. It is also called a ?chocolate cyst? because it becomes filled with blood that turns brown. This cyst can cause pain in the lower abdomen during intercourse and with your menstrual period.?? CYSTADENOMA CYST: This cyst develops from the cells on the outside of the ovary. They usually are not cancerous. They can get very big and cause lower abdomen pain and pain with intercourse. This type of cyst can twist on itself, cut off its blood supply and cause severe pain. It also can easily rupture and cause a lot of pain.?? DERMOID CYST: This type of cyst is sometimes found in both ovaries. They are found to have different kinds of body tissue in the cyst. The tissue includes skin, teeth, hair, and/or cartilage. They usually do not have symptoms unless they get very big. Dermoid cysts are rarely cancerous.?? POLYCYSTIC OVARY: This is a rare condition with hormone problems that produces many small cysts on both ovaries. The cysts are follicle-like cysts that never produce an egg and become a corpus luteum. It can cause an increase in body weight, infertility, acne, increase in body and facial hair and lack of menstrual periods or rare menstrual periods. Many women with this problem develop type 2 diabetes. The exact cause of this problem is unknown. A polycystic ovary is rarely cancerous.?? THECA LUTEIN CYST: Occurs when too much hormone (human chorionic gonadotropin) is produced and over-stimulates the ovaries to produce an egg. They are frequently seen when doctors stimulate the ovaries for invitro-fertilization (test tube babies).?? LUTEOMA CYST: This cyst is seen during . Rarely it can cause an obstruction to the canal during labor and delivery. They usually go away after delivery.SYMPTOMS?? Pelvic pain or pressure.?? Pain during sexual intercourse.?? Increasing girth (swelling) of the abdomen.?? Abnormal menstrual periods.?? Increasing pain with menstrual periods.?? You stop having menstrual periods and you are not .DIAGNOSISThe diagnosis can be made during:?? Routine or annual pelvic examination (common).?? Ultrasound.?? X-ray of the pelvis.?? CT Scan.?? MRI.?? Blood tests.TREATMENT?? Treatment may only be to follow the cyst monthly for 2 to 3 months with your caregiver. Many go away on their own, especially functional cysts.?? May be aspirated (drained) with a long needle with ultrasound, or by laparoscopy (inserting a tube into the pelvis through a small incision).?? The whole cyst can be removed by laparoscopy.?? Sometimes the cyst may need to be removed through an incision in the lower abdomen.?? Hormone treatment is sometimes used to help dissolve certain cysts.?? control pills are sometimes used to help dissolve certain cysts.HOME CARE INSTRUCTIONSFollow your caregiver's advice regarding:?? Medicine. ?? Follow up visits to evaluate and treat the cyst. ?? You may need to come back or make an appointment with another caregiver, to find the exact cause of your cyst, if your caregiver is not a curatorial specialist.?? Get your yearly and recommended pelvic examinations and Pap tests.?? Let your caregiver know if you have had an ovarian cyst in the past.Seek medical Care if:?? Your periods are late, irregular, they stop, or are painful.?? Your stomach (abdomen) or pelvic pain does not go away.?? Your stomach becomes larger or swollen.?? You have pressure on your bladder or trouble emptying your bladder completely.?? You have painful sexual intercourse.?? You have feelings of fullness, pressure, or discomfort in your stomach.?? You lose weight for no apparent reason.?? You feel generally ill.?? You become constipated.?? You lose your appetite.?? You develop acne.?? You have an increase in body and facial hair.?? You are gaining weight, without changing your exercise and eating habits.?? You think you are .seek immediate medical CARE if:?? You have increasing abdominal pain.?? You feel sick to your stomach (nausea) and/or vomit.?? You develop a fever that comes on suddenly.?? You develop abdominal pain during a bowel movement.?? Your menstrual periods become heavier than usual.Document Released: 05/26/2006 Document Re-Released: 05/14/2010ExitCare?? Patient Information ??2011 [place].VIRUSES OR BACTERIA: WHAT'S GOT YOU SICK?Antibiotics only treat BACTERIAL infections.VIRAL ILLNESSES do not get better with antibiotics.When an antibiotic is not prescribed, ask your healthcare professional for tips on how to relieve symptoms and feel better. Usual Cause Illness Viruses Bacteria Antibiotic Needed? Cold/Runny Nose X NO Bronchitis/Chest Cold(in otherwise healthy adults) X NO Whooping Cough X Yes Flu(not complicated by pneumonia) X NO Strep Throat X Yes Sore Throat X NO Fluid in the Middle Ear(otitis media with effusion) X NO Urinary Tract Infection X Yes For more information visit: www.cdc.gov/getsmart<>< ><><><><><><><><><><><> <><><><><><><><><><><>< > Patient Visit Summary Signature MELISSA BYRNE has been given the following list of patient education materials, prescriptions and follow-up instructions: CHAVEZ Cox A[place]RI[place] JUSTINE, have received the above patient education materials/instructions and have verbalized understanding: Date Time Patien t Signature Date Time Provid er Signature [facility] ED Physician Noteson 018 ED Physician Notes Chief Complaint pelv ic painED Assigned Provider/Time Time Seen: Leo Richardson / 11/29/2017 20:20History of Present Illness I have reviewed and agree with the nursing notes. I introduced myself as the PA. My attending physician is Dr. Hurtado Pt seen in room: 25 CC: Pelvic pain Patient here with . and monogamous. She presents with sharp stabbing pelvic pains located left pelvis and uterus for the last 3 days. Intermittent. Not currently present at this time. She denies dysuria or frequency. No bowel changes. No vaginal bleeding or discharge. She is currently midcycle. LMP 2 weeks ago. She has not tried any medication for this. REVIEW OF SYSTEMS: Constitutional: [Denies fevers or chills] Eyes: [Denies acute vision loss] ENMT: [Denies sore throat, hearing loss, or epistaxis] Cardiovascular: [Denies chest pain] Respiratory: [Denies cough or difficulty breathing] Gastrointestinal: [Denies melena or hematochezia reported] Genitourinary: [Denies dysuria or hematuria] Musculoskeletal: [Denies pain in extremities] Integumentary: [Denies rashes] Neurological: [Denies numbness, tingling, or weakness] Hematologic: [Denies unexplained bruising] All other systems reviewed are negative PHYSICAL EXAM: Vital Signs (First and Last Sets of This Visit): Date Route Temp Resp SBP/DBP Pulse O2 Sat O2 Flow O2 Delivery 11/29/17 20:13 Oral 98.1 16 119/ 82 91 100 - Room air 11/29/17 22:34 - - - 114/ 75 79 98 - PULSE OX INTERPRETATION: The Pulse ox is [100 ], which is [normal] Constitutional: [Alert, Non toxic, well appearing, well nourished, in no acute distress] Head: [Normocephalic, Atraumatic] Eyes: [PERRL, no scleral icterus, EOM's normal to encounter] Nose: [Normal in appearance, no rhinorrhea] Mouth: [Moist mucous membranes] Neck: [Supple, trachea midline] Cardiovascular: [Regular rate and rhythm, no murmurs, rubs, gallops] Respiratory: [Clear to auscultation bilaterally without wheezes, rhonchi, rales. No accessory muscle use] Gastrointestinal: [Non-distended. mild suprapubic and left lower quadrant tenderness above the pelvic brim. Without rigidity or guarding] Genitourinary: [Deferred - pt declines the need for sti testing] Skin: [Normal for age, no rash or lesions easily identified on exam.] Musculoskeletal: [No edema, normal peripheral perfusion and pulses, Move all extremities well.] Neurologic: [Awake, alert, answers questions appropriately without slurred speech, no focal deficits. CN II-XII intact.] NURSING NOTES: PROGRESS NOTES MEDICAL DECISION MAKIN11-29-2017 23:59 - patient presented with sharp pelvic pain and left-sided. Was found to have an ovarian cyst. She does have nitrite positive urine and despite urine symptoms she states I am prone to UTIs. She was wanting empiric antibiotics. This was prescribed. She was good with ibuprofen at home. DISCHARGE PLAN: Condition: [Stable]. Disposition: [ ], Discharged Date/Time: [ ] to Home Prescriptions:cephalexi n 500 mg, By Mouth Twice a day, 5 Day(s), 10 Cap [ ] Limitations: [ ] Patient Education: '- Ovarian Cyst (D9507) [ ] Follow up with: Provider: Follow up with primary care provider Specialty: Address: Date: 3 to 4 days Provider: Return to Emergency Department Specialty: Address: Date: Follow-up as needed [ ] Notes: [Computer voice recognition was used in this documentation, there is a possibility of [id number] errors inherent to this technology that may be missed during proofreading.] FINAL DIAGNOSIS: Acute pelvic pain ovarian cystPhysical Exam Vitals and Measurements T: 98.1 F HR: 91 RR: 16 BP: 119/82 SpO2: 100% HT: 160.02 cm WT: 95.5 kg BMI: 37.3 Assessment/Plan Ordered: ibuprofen, 600 mg, PO, Tab, Once, STAT, 11/29/17 20:57:00 EDT, 11/29/17 20:57:00 EDT, 11/29/17 20:57:00 EDTProblem List/Past Medical History Ongoing Diabetes Hypertension Mood disorder Historical No qualifying dataProcedure/Surgical History H/O: IUD usage, History of cholecystectomy.Medicat ions Home Abilify, PO, Daily Alogliptin, PO, Daily GlipiZIDE, PO, Daily HydrOXYzine pamoate, PO, QID lisinopril 10 mg oral tablet, 10 mg= 1 Tab, PO, Daily MetFORMIN, PO Proventil 2.5 mg/3 mL (0.083%) inhalation solution, 2.5 mg= 3 mL, Nebul, Q6h SEROquel, PO ED Administered Medications Prescriptions No active PrescriptionsAllergies NKASocial History Alcohol - Denies Alcohol Use Tobacco Smoking Status: Never smokedDiagnostic Results POINT OF CARE TESTING urine color poct -clinic: Yellow (Normal) urine clarity poct -clinic: Clear (Normal) glucose urine poct: 250 mg/dL bilirubin urine poct: Negative (Normal) ketones urine poct: 3+ large specific gravity urine poct: 1.030 blood urine poct: Negative (Normal) ph urine poct: 5 protein urine poct: 2+ nitrite urine poct: Positive (Abnormal) leukocytes urine poct: Negative (Normal) test poct: Negative test poct -clinic: Negative URINALYSIS. appearance urine: HAZY (Abnormal) color urine: YELLOW ph urine: 5.0 specific gravity urine: 1.036 (High) Ref Range: 1.002 - 1.030 glucose urine: 500MG/DL (Abnormal) blood urine: NEGATIVE ketones urine: 5MG/DL (Abnormal) protein urine: NEGATIVE urobilinogen urine: NORMAL bilirubin urine: NEGATIVE leukocyte esterase urine: NEGATIVE nitrite urine: POSITIVE (Abnormal) wbc urine: 1 rbc urine: 1 bacteria urine: RARE (Abnormal) squamous epithelial cells urin: MANY (Abnormal) mucous urine: RARE (Abnormal) IMAGING RESULTS: Emergency Physician Interpretation: Radiologist CT Interpretation: Interpretation No qualifying data available. Emergency Physician Interpretation: Radiologist Diagnostics Interpretation: Interpretation No qualifying data available. Emergency Physician Interpretation: Radiologist MR Interpretation: Interpretation No qualifying data available. Emergency Physician Interpretation: Radiologist US Interpretation: Interpretation * Final Report * Reason For Exam Abdominal Pain Diffuse REPORT Study: Transabdominal pelvic ultrasound, transvaginal pelvic ultrasound and complete Doppler ultrasound of the pelvis dated 11/29/2017 9:19 PM COMPARISON: September 27, 2017 HISTORY: Abdominal Pain Diffuse, lower abdominal pain and vaginal pain. Pelvic pain. Evaluate for ovarian torsion. 3 days of left lower quadrant pain. Previous intrauterine device, removed November 12, 2017. TECHNIQUE: Transabdominal pelvic ultrasound, transvaginal pelvic ultrasound and complete Doppler ultrasound of the pelvis were performed. Grayscale evaluation, color Doppler evaluation, arterial spectral Doppler evaluation and venous spectral Doppler evaluation was done. FINDINGS: Urinary bladder: Partially distended with artifact. Limited evaluation without gross abnormality. Uterus: 9.6 x 4.7 x 4.8 cm. Cervical complex nonvascular new or newly seen 10 x 10 x 7 mm lesion, most likely a complex nabothian cyst although nonspecific. There is an additional anechoic 5 mm cyst which could be endometrial or adjacent to the endometrium, lower uterine segment/cervical junction. This was present previously suggesting is most likely a nabothian cyst. Endometrium: 11 mm. Intrauterine device has been removed. RIGHT ovary: 37 x 29 x 26 mm. No right ovarian or adnexal lesion identified. LEFT ovary: 46 x 27 x 26 mm. 18 mm anechoic cyst. Free fluid: None. Doppler evaluation: The RIGHT ovary has color Doppler, arterial spectral Doppler and venous spectral Doppler blood flow. The LEFT ovary has color Doppler, arterial spectral Doppler and venous spectral Doppler blood flow. IMPRESSION: 1. The ovaries have documented Doppler blood flow. 2. 18 mm anechoic left ovarian cyst, nonspecific, statistically most likely a dominant follicle or functional cyst in a patient this age. Advise correlation with status. 3. Interval removal of intrauterine device. 5 mm lower uterine segment/cervical junction cyst, nonspecific but probably a nabothian cyst adjacent to the endometrium, also present previously. 4. New or newly seen 10 mm cervical complex nonvascular lesion which is probably a complex nabothian cyst. As this was not visible on the prior study, follow-up is suggested. 5. No free fluid. No extraovarian adnexal mass. Immediate final results were provided per protocol. [facility] thanks you for the opportunity to care for your patient. Workstation ID: [id number] - [id number] Signature Line FINAL REPORT Dictated By: Amado Gilman MD 11/29/2017 21:34 Assigned Physician: Amado Gilman MD Reviewed and Electronically Signed By: Amado Gilman MD 11/29/2017 21:39 Transcribed by: TAMI 11/29/2017 21:34 EKG INTERPRETATIONS: Time: [ ] Rate: [ ] bpm EKG interpreted by [ ] Time: [ ] Rate: [ ] bpm EKG interpreted by [ ] Time: [ ] Rate: [ ] bpm EKG interpreted by [ ] ORDERS PLACED: Laboratory POC Manual Dipstick (CO) Davonte Rebolledo November 29, 2017 20:11 Completed Urinalysis with Reflex Microscopic + Reflex Culture Davonte Rebolledo November 29, 2017 20:11 Completed POC Urine Test (CO) Davonte Rebolledo November 29, 2017 20:11 Completed U MICRO Davonte Rebolledo November 29, 2017 20:26 Completed C URINE Davonte Rebolledo November 29, 2017 20:26 InProcess Basic Metabolic Panel Davonte Rebolledo November 29, 2017 20:11 Ordered CBC with Differential Davonte Rebolledo November 29, 2017 20:11 Ordered Xray NV Duplex Abd/Pelvis Retroper Complete Physician, Emergency November 29, 2017 20:[address] / MRI / Ultrasound US Pelvis Non-OB Complete Davonte Rebolledo November 29, 2017 20:13 Ordered US Transvaginal Physician, Emergency November 29, 2017 20:32 Ordered Normal [facility] ED Physician Notes PDF [facility] GFRaaon 11-30-2017 eGFR (black) mL/min/{1.73_m2} Normal [facility] Comment on above: Result Comment: The MDRD equation has not been validated for those over 70 years, women, patients with serious co-morbid conditions, or with extremes of bodysize, muscle mass of nutritional status. Performed By: #### 6 9405-9, 93896-3p7, 05290-2 ####[facility], [address] [place], [place]. GFRbbon 11-30-2017 eGFR (non-black) mL/min/{1.73_m2} Normal [facility] Comment on above: Performed By: #### 6 9405-9, 62892-8n2, 11556-2 ####[facility], [address] [place], [place]. Culture Urine + Susceptibili tyon 11-29-2017 Urine culture, bacteria [facility] MicrobiologyPROCEDURE: Culture Urine + SusceptibilitySOURCE: Urine BODY SITE:COLLECTED DATE/TIME: 11/29/2017 20:17 EDT RECEIVED DATE/TIME: 11/29/2017 20:17 EDTSTART DATE/TIME: 11/29/2017 20:17 EDT FREE TEXT SOURCE: URINEINTERFACED REPORTSFinal Report []Verified Date/Time/Personnel: 11/30/2017 23:24 EDT CONTRIBUTOR_SYSTEM, CO_PN>100,000 CFU/MLESCHERICHIA COLIPreliminary Report []Verified Date/Time/Personnel: 11/30/2017 15:00 EDT CONTRIBUTOR_SYSTEM, CO_PN>100,000 CFU/MLGRAM NEGATIVE RODSIDENTIFICATION AND SENSITIVITY TO FOLLOWSUSCEPTIBILITY RESULTS Escherichia coliAntibiotic STEF Interp STEF DilutionAmpicillin Resistant >=32Ampicillin/ Intermediate 16SulbactamCefazolin Susceptible <=4Ciprofloxacin Resistant >=4Gentamicin Susceptible <=1Levofloxacin Resistant >=8Nitrofurantoin Susceptible <=16Trimethoprim/ Susceptible <=20Sulfamethoxazole [facility] Comment on above: Performed By: #### 6 30-4 ####[facility] [address] [place], [place] ED Physician Noteson 018 ED Physician Notes Chief Complaint pelv ic painED Assigned Provider/Time Time Seen: Davonte Rebolledo / 11/29/2017 20:07History of Present Illness I introduced myself as a Physician Lace Stripper. Attending physician: Dr. Shannon I have performed a medical screening exam on this patient. CC: low abd pain Brief HPI/ROS: Patient is a 22 year old white female with history of diabetes and mood disorder. Patient presents to the emergency department today with complaint of lower abdomen cramping ongoing for 3 days. Patient states her pain has been intermittent and worse at left side compared to right. No burning with urination or dysuria. No vaginal bleeding or discharge. No fevers at home. Patient feels nauseous for last 3 days but no vomiting. No diarrhea. Her last BM was today. Her LMP was 11/13/17, which was heavy at the beginning. Brief Exam: CONSTITUTIONAL: 22-year-old white female sitting up in chair. Patient coming by significant other. No acute distress. Stable. RESP: LCTA, normal excursion. No stridor or drooling CARDIAC: RRR SKIN: [place], warm, dry ABD: Diffuse tenderness to palpation over lower abdomen. Plan: CBC, BMP, urinalysis, urine test, pelvic ultrasound Patient will await placement MAIN department SCRIBE USED? Yes SCRIBE ATTESTATION: I, [Catarino Cohen ], am serving as a scribe to document services personally performed by [Davonte GOODWIN] based on the patient's responses to questions from the provider and the provider's statement to me. This chart accurately reflects the work and decisions made by me.Problem List/Past Medical History Ongoing Diabetes Mood disorder Historical No qualifying dataProcedure/Surgical History H/O: IUD usage, History of cholecystectomy.Medicat ions Home Abilify, PO, Daily Alogliptin, PO, Daily GlipiZIDE, PO, Daily HydrOXYzine pamoate, PO, QID lisinopril 10 mg oral tablet, 10 mg= 1 Tab, PO, Daily MetFORMIN, PO Proventil 2.5 mg/3 mL (0.083%) inhalation solution, 2.5 mg= 3 mL, Nebul, Q6h SEROquel, PO ED Administered Medications Prescriptions No active PrescriptionsAllergies NKASocial History Alcohol - Denies Alcohol Use Tobacco No qualifying data available. [facility] ED Physician Notes PDF [facility] NV Duplex Abd/Pelvis Retrope r Completeon 11-29-2017 NV Duplex Abd/Pelvis Retroper Complete Study: Transabdominal pelvic ultrasound, transvaginal pelvic ultrasound and complete Doppler ultrasound of the pelvis dated 11/29/2017 9:19 PMCOMPARISON: September 27, 2017HISTORY: Abdominal Pain Diffuse, lower abdominal pain and vaginal pain. Pelvic pain. Evaluate for ovarian torsion. 3 days of left lower quadrant pain. Previous intrauterine device, removed November 12, 2017.TECHNIQUE: Transabdominal pelvic ultrasound, transvaginal pelvic ultrasound and complete Doppler ultrasound of the pelvis were performed. Grayscale evaluation, color Doppler evaluation, arterial spectral Doppler evaluation and venous spectral Doppler evaluation was done.FINDINGS:Urinary bladder: Partially distended with artifact. Limited evaluation without gross abnormality.Uterus: 9.6 x 4.7 x 4.8 cm. Cervical complex nonvascular new or newly seen 10 x 10 x 7 mm lesion, most likely a complex nabothian cyst although nonspecific. There is an additional anechoic 5 mm cyst which could be endometrial or adjacent to the endometrium, lower uterine segment/cervical junction. This was present previously suggesting is most likely a nabothian cyst.Endometrium: 11 mm. Intrauterine device has been removed.RIGHT ovary: 37 x 29 x 26 mm. No right ovarian or adnexal lesion identified.LEFT ovary: 46 x 27 x 26 mm. 18 mm anechoic cyst.Free fluid: None.Doppler evaluation: The RIGHT ovary has color Doppler, arterial spectral Doppler and venous spectral Doppler blood flow. The LEFT ovary has color Doppler, arterial spectral Doppler and venous spectral Doppler blood flow.IMPRESSION: 1. The ovaries have documented Doppler blood flow.2. 18 mm anechoic left ovarian cyst, nonspecific, statistically most likely a dominant follicle or functional cyst in a patient this age. Advise correlation with status.3. Interval removal of intrauterine device. 5 mm lower uterine segment/cervical junction cyst, nonspecific but probably a nabothian cyst adjacent to the endometrium, also present previously.4. New or newly seen 10 mm cervical complex nonvascular lesion which is probably a complex nabothian cyst. As this was not visible on the prior study, follow-up is suggested.5. No free fluid. No extraovarian adnexal mass.Immediate final results were provided per protocol.[facility] thanks you for the opportunity to care for your patient. Workstation ID: [id number] - [id number] FINAL REPORT Dictated By: Amado Gilman MD 11/29/2017 21:34Assigned Physician: Amado Gilman MDReviewed and Electronically Signed By: Amado Gilman MD 11/29/2017 21:39Transcribed by: TAMI 11/29/2017 21:34Technologist: RANI [facility] US Pelvis Non-OB Completeon 11-29-2017 US Pelvis Non-OB Complete Study: Transabdominal pelvic ultrasound, transvaginal pelvic ultrasound and complete Doppler ultrasound of the pelvis dated 11/29/2017 9:19 PMCOMPARISON: September 27, 2017HISTORY: Abdominal Pain Diffuse, lower abdominal pain and vaginal pain. Pelvic pain. Evaluate for ovarian torsion. 3 days of left lower quadrant pain. Previous intrauterine device, removed November 12, 2017.TECHNIQUE: Transabdominal pelvic ultrasound, transvaginal pelvic ultrasound and complete Doppler ultrasound of the pelvis were performed. Grayscale evaluation, color Doppler evaluation, arterial spectral Doppler evaluation and venous spectral Doppler evaluation was done.FINDINGS:Urinary bladder: Partially distended with artifact. Limited evaluation without gross abnormality.Uterus: 9.6 x 4.7 x 4.8 cm. Cervical complex nonvascular new or newly seen 10 x 10 x 7 mm lesion, most likely a complex nabothian cyst although nonspecific. There is an additional anechoic 5 mm cyst which could be endometrial or adjacent to the endometrium, lower uterine segment/cervical junction. This was present previously suggesting is most likely a nabothian cyst.Endometrium: 11 mm. Intrauterine device has been removed.RIGHT ovary: 37 x 29 x 26 mm. No right ovarian or adnexal lesion identified.LEFT ovary: 46 x 27 x 26 mm. 18 mm anechoic cyst.Free fluid: None.Doppler evaluation: The RIGHT ovary has color Doppler, arterial spectral Doppler and venous spectral Doppler blood flow. The LEFT ovary has color Doppler, arterial spectral Doppler and venous spectral Doppler blood flow.IMPRESSION: 1. The ovaries have documented Doppler blood flow.2. 18 mm anechoic left ovarian cyst, nonspecific, statistically most likely a dominant follicle or functional cyst in a patient this age. Advise correlation with status.3. Interval removal of intrauterine device. 5 mm lower uterine segment/cervical junction cyst, nonspecific but probably a nabothian cyst adjacent to the endometrium, also present previously.4. New or newly seen 10 mm cervical complex nonvascular lesion which is probably a complex nabothian cyst. As this was not visible on the prior study, follow-up is suggested.5. No free fluid. No extraovarian adnexal mass.Immediate final results were provided per protocol.[facility] thanks you for the opportunity to care for your patient. Workstation ID: [id number] - [id number] FINAL REPORT Dictated By: Amado Gilman MD 11/29/2017 21:34Assigned Physician: Amado Gilman MDReviewed and Electronically Signed By: Amado Gilman MD 11/29/2017 21:39Transcribed by: TAMI 11/29/2017 21:34Technologist: RANI [facility] US Transvaginalon 11-29-2017 US Transvaginal Study: Transabdomina l pelvic ultrasound, transvaginal pelvic ultrasound and complete Doppler ultrasound of the pelvis dated 11/29/2017 9:19 PMCOMPARISON: September 27, 2017HISTORY: Abdominal Pain Diffuse, lower abdominal pain and vaginal pain. Pelvic pain. Evaluate for ovarian torsion. 3 days of left lower quadrant pain. Previous intrauterine device, removed November 12, 2017.TECHNIQUE: Transabdominal pelvic ultrasound, transvaginal pelvic ultrasound and complete Doppler ultrasound of the pelvis were performed. Grayscale evaluation, color Doppler evaluation, arterial spectral Doppler evaluation and venous spectral Doppler evaluation was done.FINDINGS:Urinary bladder: Partially distended with artifact. Limited evaluation without gross abnormality.Uterus: 9.6 x 4.7 x 4.8 cm. Cervical complex nonvascular new or newly seen 10 x 10 x 7 mm lesion, most likely a complex nabothian cyst although nonspecific. There is an additional anechoic 5 mm cyst which could be endometrial or adjacent to the endometrium, lower uterine segment/cervical junction. This was present previously suggesting is most likely a nabothian cyst.Endometrium: 11 mm. Intrauterine device has been removed.RIGHT ovary: 37 x 29 x 26 mm. No right ovarian or adnexal lesion identified.LEFT ovary: 46 x 27 x 26 mm. 18 mm anechoic cyst.Free fluid: None.Doppler evaluation: The RIGHT ovary has color Doppler, arterial spectral Doppler and venous spectral Doppler blood flow. The LEFT ovary has color Doppler, arterial spectral Doppler and venous spectral Doppler blood flow.IMPRESSION: 1. The ovaries have documented Doppler blood flow.2. 18 mm anechoic left ovarian cyst, nonspecific, statistically most likely a dominant follicle or functional cyst in a patient this age. Advise correlation with status.3. Interval removal of intrauterine device. 5 mm lower uterine segment/cervical junction cyst, nonspecific but probably a nabothian cyst adjacent to the endometrium, also present previously.4. New or newly seen 10 mm cervical complex nonvascular lesion which is probably a complex nabothian cyst. As this was not visible on the prior study, follow-up is suggested.5. No free fluid. No extraovarian adnexal mass.Immediate final results were provided per protocol.[facility] thanks you for the opportunity to care for your patient. Workstation ID: [id number] - [id number] FINAL REPORT Dictated By: Amado Gilman MD 11/29/2017 21:34Assigned Physician: Amado Gilman MDReviewed and Electronically Signed By: Amado Gilman MD 11/29/2017 21:39Transcribed by: TAMI 11/29/2017 21:34Technologist: NMP [facility] Urinalysis Microscopicon Urine, bacteria in sediment RARE Abnormal NONE/HPF [facility] Comment on above: Performed By: #### 5 8077-9, 97706-2 ####[facility], [address], [place]. Urine, erythrocytes in sediment by area 1 /[HPF] Normal 0-5 [facility] Comment on above: Performed By: #### 5 8077-9, 73523-5 ####[facility], [address], [place]. Urine, leukocytes in sedmiment 1 /[HPF] Normal 0-5 [facility] Comment on above: Performed By: #### 5 8077-9, 76849-1 ####[facility], [address], [place]. Urine, mucus presence in sediment RARE Abnormal NONE/LPF [facility] Comment on above: Performed By: #### 5 8077-9, 09081-9 ####[facility], [address] [place] Urine, squamous cells in sediment MANY Abnormal FEW/LPF [facility] Comment on above: Performed By: #### 5 8077-9, 71604-7 ####[facility], [address] [place], [place]. Urinalysis with Microscopic Automatic with Reflexon 11-29-2017 Bilirubin Urine Negative Normal NEGATIVE [facility] Comment on above: Performed By: #### 5 8077-9, 32400-0 ####[facility], [address] [place] [address]. Nitrite Urine Positive Abnormal NEGATIVE [facility] Comment on above: Performed By: #### 5 8077-9, 57530-4 ####[facility], [address] [place] [address]. Urine, appearance HAZY Abnormal CLEAR [facility] Comment on above: Performed By: #### 5 8077-9, 68888-9 ####[facility], [address] [place] [address]. Urine, color YELLOW Normal YELLOW [facility] Comment on above: Performed By: #### 5 8077-9, 34946-0 ####[facility], [address] [facility] Urine, glucose presence 500MG/DL Abnormal NORMAL [facility] Comment on above: Performed By: #### 5 8077-9, 41709-9 ####[facility], [address] [facility] [facility] [place] Urine, hemoglobin presence Negative Normal NEGATIVE [facility] Comment on above: Performed By: #### 5 8077-9, 17871-0 ####[facility], [address] [place] Urine, ketones presence 5MG/DL Abnormal NEGATIVE [facility] Comment on above: Performed By: #### 5 8077-9, 22415-3 ####[facility], [address] [place], [place]. Urine, leukocyte esterase presence Negative Normal NEGATIVE [facility] Comment on above: Performed By: #### 5 8077-9, 19457-2 ####[facility], [address] [place], [place]. Urine, pH 5.0 [pH] Normal 4.5-8.0 [facility] Comment on above: Performed By: #### 5 8077-9, 88852-4 ####[facility], [address] [place], [place]. Urine, protein Negative Normal NEGATIVE [facility] Comment on above: Performed By: #### 5 8077-9, 58656-0 ####[facility], [address] [place], [place]. Urine, specific gravity 1.036 High 1.002-1.030 [facility] Comment on above: Performed By: #### 5 8077-9, 48299-7 ####[facility], [address] [place], [place]. Urobilinogen Urine NORMAL Normal NORMAL [facility] Comment on above: Performed By: #### 5 8077-9, 31040-3 ####[facility], [address] [place], [place]. [facility] Breast Uni Limited LTo n 11-20-2017 [facility] Breast Uni Limited LT DATE OF EXAM : 11/20/2017 10:41 AMEXAMINATION TYPE: ND US Breast Uni Limited LTHISTORY: Recent clinical breast evaluation detected a nontender lump in the upper outer quadrant of the LEFT breast. Also, patient describes one recent episode of spontaneous clear nipple discharge and one episode of nonspontaneous clear nipple discharge.COMPARISON: NoneFINDINGS: LEFT breast ultrasound of the symptomatic site at 2 o'clock 2 cm from nipple as well as the 1-3 o'clock area demonstrates normal fibroglandular tissue and no cysts or suspicious solid masses. Additional imaging of the nipple and subareolar region demonstrates normal fibroglandular tissue and no duct ectasia, cysts, or suspicious solid masses.IMPRESSION: No sonographic evidence for malignancy. Recommend clinical follow-up for the patient's symptoms.BI-RADS Code 1-N: Negative.[facility] thanks you for the opportunity to care for your patient. Workstation ID: [id number] - [id number] FINAL REPORT Dictated By: Mihir Real MD 11/20/2017 10:50Assigned Physician: Mihir Real MD AReviewed and Electronically Signed By: Mihir Real MD 11/20/2017 10:53Transcribed by: [facility] 11/20/2017 10:50Technologist: GISELA [facility] Antibody Screen Interpretati onon 11-15-2017 Interpretation and review of laboratory results Negative Normal NEGATIVE [facility] Comment on above: Performed By: #### 6 9405-9, 59153-1t3, 20597-6 ####[facility], [address] Basic Metabolic Panelon Anion gap 7.0 mmol/L Normal 6.0-18.0 [facility] Comment on above: Result Comment: PLEA SE NOTE:The calculated Anion Gap(AGAP) does not include Potassium. Performed By: #### 6 9405-9, 48572-0x9, 90349-1 ####[facility], [address], [place]. Calcium 10.1 mg/dL Normal 8.9-10.3 [facility] Comment on above: Performed By: #### 6 9405-9, 18253-1m0, 68826-5 ####[facility], [address], [place]. Chloride 103 mmol/L Normal 98-107 [facility] Comment on above: Performed By: #### 6 9405-9, 14402-5o0, 25720-1 ####[facility], [address], [place]. CO2 28 mmol/L Normal 22-32 [facility] Comment on above: Performed By: #### 6 9405-9, 99366-6d2, 90821-3 ####[facility], [address] [place], [place]. Creatinine 0.53 mg/dL Low 0.66-1.30 [facility] Comment on above: Performed By: #### 6 9405-9, 13109-7f4, 74447-3 ####[facility], [address], [place]. Glucose mass conc 215 mg/dL High 70-110 [facility] Comment on above: Performed By: #### 6 9405-9, 81965-7i5, 53842-1 ####[facility], [address], [place]. Potassium molar conc 3.9 mmol/L Normal 3.6-5.1 [place] Comment on above: Performed By: #### 6 9405-9, 43454-6m3, 69667-7 ####[facility], [address], [place]. Sodium 138 mmol/L Normal 136-145 [facility] Comment on above: Performed By: #### 6 9405-9, 87035-0y0, 37242-9 ####[facility], [address], [place]. Urea nitrogen 10 mg/dL Normal 8-20 [facility] Comment on above: Performed By: #### 6 9405-9, 82591-7u9, 70421-8 ####[facility], [address], [place]. Blood Type ABO and Rh(D)on 0 11-15-2017 ABO+Rh group Positive Normal [facility] [facility] Comment on above: Performed By: #### 6 9405-9, 75552-2p9, 21072-1 ####[facility], [address] [place], [place]. CBC with Differentialon 06-0 Basophils Auto #/vol (Bld) 0.10 thou/mcL Normal 0.00-0.20 [facility] Comment on above: Performed By: #### 6 9405-9, 87097-6g3, 99011-0 ####[facility], [address] [facility]. Basophils Auto #/vol (Bld) 0.6 % Normal 0.0-2.0 [facility] Comment on above: Performed By: #### 6 9405-9, 26243-6v1, 86192-7 ####[facility], [address] [facility] [facility] [place], [place]. Eosinophils 0.10 thou/mcL Normal 0.00-0.70 [facility] Comment on above: Performed By: #### 6 9405-9, 40006-9i2, 73393-2 ####[facility], [address] [facility] [place]. Eosinophils/100 leukocytes 0.9 % Normal 0.0-7.0 [facility] Comment on above: Performed By: #### 6 9405-9, 84424-9m8, 70646-1 ####[facility], [address] [facility]. Erythrocyte distribution width Auto Ratio (RBC) 14.1 % Normal 11.0-14.8 [facility] Comment on above: Performed By: #### 6 9405-9, 77989-9v5, 00485-2 ####[facility], [address] [facility] [place]. Erythrocytes (RBC) 5.51 million/mcL High 3.80-5.10 [facility] Comment on above: Performed By: #### 6 9405-9, 97511-0u8, 38725-8 ####[facility], [address], [place]. Hematocrit (HCT) 43.1 % Normal 35.0-45.0 [facility] Comment on above: Performed By: #### 6 9405-9, 23802-2d1, 67261-8 ####[facility], [address], [place]. Hemoglobin mass conc (Bld) 15.0 g/dL Normal 12.0-16.0 [facility] Comment on above: Performed By: #### 6 9405-9, 73248-2f7, 24908-6 ####[facility], [address] [facility] [place]. Lymphocytes 2.20 thou/mcL Normal 1.00-4.80 [facility] Comment on above: Performed By: #### 6 9405-9, 62955-3y1, 75730-5 ####[facility], [address] [facility] [place]. Lymphocytes/100 leukocytes 25.7 % Normal 22.0-44.0 [facility] Comment on above: Performed By: #### 6 9405-9, 61194-9w5, 86603-0 ####[facility], [address], [place]. MCH 27.2 Picograms Normal 27.0-34.0 [facility] Comment on above: Performed By: #### 6 9405-9, 22875-7v4, 98150-4 ####[facility], [address], [place]. MCHC mass conc (RBC) 34.8 g/dL Normal 32.0-36.0 [place] Comment on above: Performed By: #### 6 9405-9, 25083-5d6, 06067-5 ####[facility], [address] [place], [place]. MCV 78.1 fL Low 80.0-97.0 [facility] Comment on above: Performed By: #### 6 9405-9, 80222-2b5, 83410-7 ####[facility], [address] [place], [place]. Monocytes 0.40 thou/mcL Normal 0.00-0.90 [facility] Comment on above: Performed By: #### 6 9405-9, 76938-3n6, 09245-0 ####[facility], [address] [place], [place]. Monocytes/100 leukocytes 5.1 % Normal 0.0-12.0 [facility] Comment on above: Performed By: #### 6 9405-9, 22224-7t0, 02820-9 ####[facility], [address] [place], [place]. Neutrophils 5.70 thou/mcL Normal 1.80-7.70 [facility] Comment on above: Performed By: #### 6 9405-9, 29457-1p2, 66340-2 ####[facility], [address] [place], [place]. Neutrophils/100 WBC Auto (Bld) 67.7 % Normal 40.0-70.0 [facility] Comment on above: Performed By: #### 6 9405-9, 35194-3t6, 24263-7 ####[facility], [address] [place], [place]. Platelet mean volume (PMV) 7.8 fL Normal 6.2-12.1 [facility] Comment on above: Performed By: #### 6 9405-9, 35628-5f5, 91269-5 ####[facility], [address] [place], [place]. Platelets 264 thou/mcL Normal 142-424 [facility] Comment on above: Performed By: #### 6 9405-9, 82852-5q8, 44570-7 ####[facility], [address] [place], [place]. WBC (Leukocytes) 8.5 thou/mcL Normal 4.6-10.2 [facility] Comment on above: Performed By: #### 6 9405-9, 63781-4u9, 38397-7 ####[facility], [address] [place], [place]. Depart Summaryon 11-15-2017 Depart Summary EMERGENCY DEPARTMENT DISCHARGE SUMMARYPATIENT NAME:MELISSA BYRNE MRN: COL)-[id number]: 22 Years SEX: Female PHONE:[id number]: 11/15/2017 4:07 PM : 1995 ATTENDING PHYSICIAN:Priti [facility]BSTER [facility] PCP: Verona Hilliard MD CHIEF COMPLAINT: Heavy vaginal bleeding with clots Allergies NKAProblems Active Mood disorder Diabetes DISCHARGE DIAGNOSIS: Menorrhagia DISCHARGE INSTRUCTIONS: Menorrhagia, Tzmf-[id number]-Bknv ED PHYSICIAN DOCUMENTATION: History of Present IllnessPatient is a 22-year-old female presenting to the ED for evaluation of vaginal bleeding and lower abdominal?pain?since Mirena IUD removal?on Friday. Pain has been intermittent but steady in intensity. The vaginal bleeding has increased in intensity. Patient states that?since this morning she has been going through about?2 pads per hour.?Abdominal pain is described as sharp?and intermittent.?She denies any aggravating or relieving factors to this pain.?Prior abdominal surgeries include cholecystectomy.?Last bowel movement was normal without blood or mucus.?Patient is passing gas and tolerating normal diet. She denies fevers,?chills, nausea, vomiting, vaginal discharge, dysuria. Patient has no concern for STDs.?Patient's last menstrual cycle?prior to IUD removal began on October 06.?Patient states that she had?irregular cycles?while she had the IUD in place.? I introduced myself to the patient as the physician assistant floor covering printer. I informed the patient of attending physician Dr. Jama who is available upon request. I reviewed the nursing notes.? REVIEW OF SYSTEMS:Constitutional: [No fevers or chills]Eyes: [No visual changes]ENMT: [No sore throat, runny nose, stuffy nose]Cardiovascular: [No chest pain or palpitations]Respirator y: [No cough or difficulty breathing]Gastrointesti nal: [+abdominal pain, No nausea or?vomiting]Genitourina ry: [+vaginal bleeding, No pain or burning with urination]Musculoskelet al: [No pain in extremities]Integumenta ry: [No rashes]Neurological: [No numbness, tingling, or weakness]Hematologic: [No bruising]All other systems reviewed are negative? PHYSICAL EXAM:?Vital Signs (First and Last Sets of This Visit):Date?Route ?Temp?Resp?SBP /DBP ? ? Pulse ? ? O2 Sat ? ? ? O2 Flow ? ? ?O2 Fruneefi92/09/18 16:00?-?-?- ?-/-?-? 100? -?Room air11/15/17 18:23?-?-?1 6?124/ 66? 78?98? -??PULSE OX INTERPRETATION: The Pulse ox is [100], which is [normal]? Constitutional: [Alert, Well appearing, Well nourished, in no acute distress]Head: [Normocephalic, Atraumatic]Eyes: [PERRL, no scleral icterus]Nose: [Normal in appearance, no rhinorrhea]Mouth: [Moist mucous membranes]Neck: [Supple, trachea midline]Cardiovascular: [Regular rate and rhythm, no murmurs, rubs, gallops]Respiratory: [Clear to auscultation bilaterally without wheezes, rhonchi, rales. Equal air exchange without accessory muscle use]Gastrointestinal: [Active bowel sounds heard throughout.?Non-distend ed, and is mildly tender in right lower quadrant and suprapubic area.. Soft without rigidity. No guarding. Negative psoas sign. Negative obturator sign. Negative heel strike. ]Genitourinary: [ External genitalia normal without rashes or lesions. Vaginal vault normal with about 2cc of blood. No pooling of blood in posterior fornix.?Cervix visualized and closed. No?cervical lesions.?Cervix non-friable. No cervical motion tenderness. ?]Skin: [Normal for age, no rash or lesions]Musculoskeletal : [No edema, normal peripheral perfusion and pulses]Neurologic: [Awake, alert, answers questions appropriately without slurred speech, no focal deficits]??? DIFFERENTIAL DIAGNOSIS: [ Menorrhagia, ovarian cysts, ovarian torsion, appendicitis,?ectopic , spontaneous ,?irritable bowel syndrome]? MEDICAL DECISION MAKING: [11-15-2017 17:26 22-year-old female presenting to the ED for evaluation of lower abdominal pain and vaginal bleeding since IUD removal on Friday. She states that the abdominal pain has been intermittent?but not worsening in intensity. I do not believe that this abdominal pain is due to?an emergent?pathology such as ovarian torsion or appendicitis as she is not significantly tender on examination.?She states the vaginal bleeding has became very heavy with clots.?As of today, patient has been going through about 2 pads per hour.?On pelvic examination there is about 2 mL seem with in the vaginal vault. There is no?pooling of blood in the posterior fornix. The cervix is closed. Patient's test is negative.?Her hemoglobin is stable at 15.??11-15-2017 18:55 patient's urinalysis shows a small amount of leukocytes in the urine. ?There are also white blood cells seen but in comparison to the amount of red blood cells, I believe that this is likely?contamination and not?a urinary tract infection. This patient does not have complaints of dysuria.?Patient has not had underwear or pads on since pelvic examination about an hour and a half ago. When asked to stand, no blood is seen on?bed sheets. Patient states that she has not felt like she is been bleeding over the past hour and a half. I believe that this is likely an abnormally heavy cycle?for the patient?I believe that she is safe to be discharged home and follow-up with [facility] or PCP. I believe the abdominal pain is likely due to IUD removal 3 days ago.? I discussed this case my attending physician, Dr. Jama, who agrees with workup and disposition.? I have reviewed assessment and plan with patient who verbalizes understanding. Patient will be discharged home and follow-up with [facility]-TRANSMISSION REPAIRER or PCP?provider in 72 hours. Patient is stable and agreeable to plan for discharge home.]? DISCHARGE PLAN:Condition: [Stable]. ?Disposition: [Medically cleared],? Discharged ?Date/Time:?[11-15-2017 18:58 ]?to Home?Prescriptions: NONE ?[ ]Limitations: NONEPatient Education:? Menorrhagia, Bwap-aa-Mupu? [ ]Follow up with:? Provider: ?Verona Hilliard MD?? ?Specialty:??Family Practice?? ?Address:??[address] [place] [id number] ? ?[phone] ? (1)?? ?Date:??1 to 2 days??? Comment: ?Call for an Appointment?Provider: ?Return to Emergency Department?? ?Specialty:?Address:?Date:??Follow-up as needed??? Comment: ?Reasons to return to the ED discussed with patient such as fever >101 degrees F, intractable nausea/vomiting, increasing pain, increased bleeding, lack of improvement of symptoms, new symptoms.?? [ ]Counseled: [Patient].?FINAL DIAGNOSIS: [ menorrhagia ?]? DISPOSITION:Time of Departure From ER 11/15/2017 19:17 Discharge/Transfer From ER Home 01 MEDICATION LISTS: CURRENT MEDICATION LISTalbuterol (Proventil 2.5 mg/3 mL (0.083%) inhalation solution) 3 Milliliter Nebulized Medication every 6 hours.alogliptin (Alogliptin) By Mouth once a day.ARIPiprazole (Abilify) By Mouth once a day.GlipiZIDE By Mouth once a day.HydrOXYzine (HydrOXYzine pamoate) By Mouth 4 Times/Day.lisinopril (lisinopril 10 mg oral tablet) 1 Tab(s) By Mouth once a day.MetFORMIN By Mouth.QUEtiapine (SEROquel) By Mouth. MEDICATIONS GIVEN DURING MEDICAL VISITNone LAB RESULTS:LABORATORY TESTS: Pending Lab Result(s): Date Order Results 11/15/2017 16:49 Type and Screen Ordered Abnormal Lab Result(s): Date Order Results 11/15/2017 17:03 Red Blood Cell Count H 5.51 million/mcL 11/15/2017 17:03 MCV L 78.1 FL 11/15/2017 17:03 Glucose Level H 215 mg/dL 11/15/2017 17:03 Creatinine L 0.53 mg/dL 11/15/2017 18:25 Appearance Urine A TURBID 11/15/2017 18:25 Glucose Urine A 500MG/DL 11/15/2017 18:25 Blood Urine A 300/UL 11/15/2017 18:25 Ketones Urine A 5MG/DL 11/15/2017 18:25 Protein Urine A 100MG/DL 11/15/2017 18:25 Leukocyte Esterase Urine A 25/UL 11/15/2017 18:25 WBC Urine H 191 /hpf 11/15/2017 18:25 RBC Urine H 4126 /hpf 11/15/2017 18:25 Bacteria Urine A RARE 11/15/2017 18:25 Squamous Epithelial Cells Urine A MODERATE 11/15/2017 18:25 Mucous Urine A FEW RADIOLOGY: FOLLOW UP:FOLLOW-UP APPOINTMENTS: Provider: Specialty: Address: Date: Verona Hilliard MD Family Practice [address] [place] [phone] (1) 1 to 2 days Comment: Call for an Appointment Provider: Specialty: Address: Date: Return to Emergency Department Follow-up as needed Comment: Reasons to return to the ED discussed with patient such as fever >101 degrees F, intractable nausea/vomiting, increasing pain, increased bleeding, lack of improvement of symptoms, new symptoms. Normal [facility] ED Ashleigh Chan 11-15-2017 ED [address] [place] [address] Emergency Department Discharge Instructions MELISSA BYRNE , Please provide this information to your Primary Care/Specialist Name : MELISSA BYRNE Current Date : 11/15/2017 19:17:32DOB : 1995 12:00 PM Primary Care Physician: Verona Hilliard MD Diagnosis : Menorrhagia Follow-Up Instructions:MELISSA BYRNE has been given these follow-up instructions: FOLLOW-UP APPOINTMENTS: Provider: Specialty: Address: Date: Verona Hilliard MD Family Practice [address] [place] [phone] (1) 1 to 2 days Comment: Call for an Appointment Provider: Specialty: Address: Date: Return to Emergency Department Follow-up as needed Comment: Reasons to return to the ED discussed with patient such as fever >101 degrees F, intractable nausea/vomiting, increasing pain, increased bleeding, lack of improvement of symptoms, new symptoms. Laboratory Orders: Name: Status: Urine Test POCT (CO) Completed CBC with Differential Completed Basic Metabolic Panel Completed HCG Quantitative Completed Type and Screen Ordered GFRaa Completed GFRbb Completed Urinalysis with Microscopic Automatic Completed Urinalysis Microscopic Completed Radiology Orders: None Ordered Diagnostic Tests: None Ordered Procedure(s) and Patient Education(s) : Menorrhagia, Onfq-ni-Krqd EMERGENCY SERVICES MEDICATION LISTLista de Medicaciones de los Servicios de Emergencia Name MELISSA BYRNE MRN (COL)-[id number] PLEASE READ THE FOLLOWING REGARDING YOUR MEDICATIONS Based on the information available during your visit we have given you the medication instructions below. Continue taking medications you took prior to your visit unless you have been told to change. Please share this information with your own doctor. Carry a list of your medications with you in case of an emergency. Update it when medications are stopped, doses are changed, or new medications (including rqwd-gsn-wsnzvcy products) are added. If you have any questions, check with your doctor. Por la informaci??n disponible ai martinez visita, las instrucciones de medicaci??n aparecen debajo. Favor de continuar tomando las medicaciones Ud. bernadette?? antes de martinez visita por lo menos que hay cambios. Favor de compartir esta informaci??n con martinez medico. Lleva sandra lista de medicaciones consigo por nirali de emergenc??a. Actualiza la lista cuando Ud. neeraj de richard las medicaciones, si cambian las dosis, o si hay nuevas medicaciones a??adidas (incluyendo medicaciones vendidas sin prescripci??n). Favor de preguntar a martinez medico por cualquier kristen. THESE ARE THE MEDICATIONS YOU SHOULD BE TAKINGalbuterol (Proventil 2.5 mg/3 mL (0.083%) inhalation solution) 3 Milliliter Nebulized Medication every 6 hours.alogliptin (Alogliptin) By Mouth once a day.ARIPiprazole (Abilify) By Mouth once a day.GlipiZIDE By Mouth once a day.HydrOXYzine (HydrOXYzine pamoate) By Mouth 4 Times/Day.lisinopril (lisinopril 10 mg oral tablet) 1 Tab(s) By Mouth once a day.MetFORMIN By Mouth.QUEtiapine (SEROquel) By Mouth.MEDICATIONS GIVEN DURING MEDICAL VISITNone NON-MEDICATION PRESCRIPTION SCHEDULING PHONE NUMBER: MEDICATION CHANGE DETAILS (Not your Final Home Medication List) During the course of your visit, your home medication list was updated with the most current information. The details of those changes are shown below: NEW MEDICATIONSNoneUPDATED MEDICATIONSNoneUNCHANGE D MEDICATIONSOther Medicationsalbuterol (Proventil 2.5 mg/3 mL (0.083%) inhalation solution) 3 Milliliter Nebulized Medication every 6 hours.Comment alogliptin (Alogliptin) By Mouth once a day.Comment ARIPiprazole (Abilify) By Mouth once a day.Comment GlipiZIDE By Mouth once a day.Comment HydrOXYzine (HydrOXYzine pamoate) By Mouth 4 Times/Day.Comment lisinopril (lisinopril 10 mg oral tablet) 1 Tab(s) By Mouth once a day.Comment MetFORMIN By Mouth.Comment QUEtiapine (SEROquel) By Mouth.Comment STOP TAKING THESE MEDICATIONSNoneDO NOT TAKE UNTIL YOU TALK TO YOUR DOCTORNone [place] [address] [facility] Department Discharge Instructions Name: CHAVEZMELISSA MOODY AMRITA Current Date: 11/15/2017 19:17:32 : 1995 12:00 PM Primary Physician: Verona Hilliard MD We would like to thank you for choosing [facility] for your emergency medical needs. We examined and treated you today on an emergency basis only. This was not a substitute for, or an effort to provide, complete medical care. In most cases, you must let your doctor (or the doctor we referred you to) check you again. Tell your doctor about any new or lasting problems. We cannot recognize and treat all injuries or illnesses in one emergency department visit. After you leave, you should follow the directions attached. Instructions for obtaining X-rays:When following up with your doctor, you may need to take copies of your x-rays that were done in the Emergency Department. If you didn't receive these upon your discharge from the emergency department, please call . When the final report becomes available and it is reviewed, the emergency department will attempt to contact you if there are any changes in your instructions. It is important that you leave accurate information with us on how to contact you. IF you cannot be contacted, YOU must contact the follow-up doctor that you were assigned to make sure that the final official x-ray report does not require a change in your treatment. Instructions for obtaining medical records:If you need a copy of your medical records for follow-up, please contact the Health Information Management Department at . Their office hours are 8 AM- 4:30 PM, Friday through Friday. Please note: Results are not immediately available. Please allow a minimum of 36 hours for documentation and results.If you were prescribed an antibiotic:Antibiotics are life-saving drugs and they need to be used properly. Your team might change your antibiotic because test results show that a different antibiotic would be better to treat your infection. Like all medications, antibiotics have side effects. Some can be serious. This includes the risk of getting an antibiotic-resistant infection later, which may be difficult to treat. Remember to take your antibiotics as prescribed. If you have any questions please talk to your healthcare team.Seatbelts:There is no doubt that seatbelts save lives. Every day, people without seatbelts have more serious injuries. Have everyone buckle up, using age appropriate seatbelts or car seats, to reduce their risk of injury.Smoking:If you do smoke, we encourage you to stop. Smoking affects all aspects of your health and the health of those around you. Call the [place] [employer] at 5-162-GEYF-[place] or the [place] [employer] at 1-512-XEA-6038 for more information.High blood pressure: Your screening blood pressure today was 124 mm Hg / . Hypertension (high blood pressure) is blood pressure over 120/80. People with hypertension should contact their primary care provider within 30 days to follow up. Check your patient portal for additional blood pressure information.Immunizatio ns:Immunization is a way to protect against deadly infections. Discuss this with your child's business liaison manager, or Public Health Department. Your family practice doctor can determine if you need pneumonia or flu vaccine. The [facility] Department can be reached at .Domestic Violence:If you are a victim of domestic violence (physical, verbal, or emotional), you are not alone. Discuss this with your physician or a friend and call Choices Hotline ( for assistance and support.You are the most important factor in your recovery. Follow the provided instructions carefully. Take your medications as prescribed. Most importantly, see a doctor again as discussed. If you have problems that we have not discussed, call or visit your doctor right away. If you do not have a primary care physician, we have provided one for you to follow up with. When you call for an appointment, please inform them that you were seen in the emergency department and the date of your visit. If you are unable to reach your doctor and are still experiencing problems, return to the emergency department. For assistance finding a primary care physician, call the Physician Referral Line at .Suicide Hotline:Your mental and emotional well-being is important. If you are in a mental health crisis or are having thoughts of suicide, please call the nationwide suicide hotline, anytime day or night, at 0-050-906-KTBO. Pharmacy Information:Below is a list of 24 hour pharmacies that we are aware of. We suggest that you call the specific pharmacy for their hours before traveling to a location. Hours may vary on holidays. [facility] [address] [address] [phone] [place] [phone] [address] [place] [address] [phone] [place] [address] [phone] [place] [address] [phone] [place] [phone] [place] [address] [phone] Take all medications as directed. If you need prescription assistance, contact the following agencies:?? [facility] for Prescription Assistance at or www.Kadenze.org?? [facility] at or www.[employer]x.[employer]?? [employer] is a site with many valuable coupons Patient Education Materials MELISSA BYRNE has been given the following patient education materials: Obstetrics and GynecologyMenorrhagiaMe norrhagia is when your menstrual periods are heavy or last longer than usual. HOME CARE???Only take medicine as told by your doctor.???Take any iron pills as told by your doctor. Heavy bleeding may cause low levels of iron in your body. ??? Do not take aspirin 1 week before or during your period. Aspirin can make the bleeding worse.???Lie down for a while if you change your tampon or pad more than once in 2 hours. This may help lessen the bleeding.???Eat a healthy diet and foods with iron. These foods include leafy green vegetables, meat, liver, eggs, and whole grain breads and cereals. ??? Do not try to lose weight. Wait until the heavy bleeding has stopped and your iron level is normal.GET HELP IF:???You soak through a pad or tampon every 1 or 2 hours, and this happens every time you have a period.???You need to use pads and tampons at the same time because you are bleeding so much.???You need to change your pad or tampon during the night.???You have a period that lasts for more than 8 days.???You pass clots bigger than 1 inch (2.5 cm) wide. ???You have irregular periods that happen more or less often than once a month.???You feel dizzy or pass out (faint).???You feel very weak or tired.???You feel short of breath or feel your heart is beating too fast when you exercise.???You feel sick to your stomach (nausea) and you throw up (vomit) while you are taking your medicine. ?You have watery poop (diarrhea) while you are taking your medicine.???You have any problems that may be related to the medicine you are taking. ?GET HELP RIGHT AWAY IF:???You soak through 4 or more pads or tampons in 2 hours.???You have any bleeding while you are .MAKE SURE YOU:???Understand these instructions. ???Will watch your condition.???Will get help right away if you are not doing well or get worse.This information is not intended to replace advice given to you by your health care provider. Make sure you discuss any questions you have with your health care provider.Document Released: 03/04/2009 Document Revised: 01/26/2014 Document Reviewed: 11/25/2013[employer] Interactive Patient Education ?2016 [employer]><><><><><><><><>< ><><><><><><><><><><><> <><><><> Patient Visit Summary Signature MELISSA BYRNE has been given the following list of patient education materials, prescriptions and follow-up instructions: ICHAVEZ ALEXANDRIA JUSTINE, have received the above patient education materials/instructions and have verbalized understanding: Date Time Patien t Signature Date Time Provid er Signature [facility] ED Physician Noteson 018 ED Physician Notes Chief Complaint Heav y vaginal bleeding with clotsED Assigned Provider/Time Time Seen: Diana Mo / 11/15/2017 16:13History of Present Illness Patient is a 22-year-old female presenting to the ED for evaluation of vaginal bleeding and lower abdominal pain since Mirena IUD removal on Friday. Pain has been intermittent but steady in intensity. The vaginal bleeding has increased in intensity. Patient states that since this morning she has been going through about 2 pads per hour. Abdominal pain is described as sharp and intermittent. She denies any aggravating or relieving factors to this pain. Prior abdominal surgeries include cholecystectomy. Last bowel movement was normal without blood or mucus. Patient is passing gas and tolerating normal diet. She denies fevers, chills, nausea, vomiting, vaginal discharge, dysuria. Patient has no concern for STDs. Patient's last menstrual cycle prior to IUD removal began on October 06. Patient states that she had irregular cycles while she had the IUD in place. I introduced myself to the patient as the physician assistant floor covering printer. I informed the patient of attending physician Dr. Jama who is available upon request. I reviewed the nursing notes. REVIEW OF SYSTEMS: Constitutional: [No fevers or chills] Eyes: [No visual changes] ENMT: [No sore throat, runny nose, stuffy nose] Cardiovascular: [No chest pain or palpitations] Respiratory: [No cough or difficulty breathing] Gastrointestinal: [+abdominal pain, No nausea or vomiting] Genitourinary: [+vaginal bleeding, No pain or burning with urination] Musculoskeletal: [No pain in extremities] Integumentary: [No rashes] Neurological: [No numbness, tingling, or weakness] Hematologic: [No bruising] All other systems reviewed are negative PHYSICAL EXAM: Vital Signs (First and Last Sets of This Visit): Date Route Temp Resp SBP/DBP Pulse O2 Sat O2 Flow O2 Delivery 11/15/17 16:00 - - - -/- - 100 - Room air 11/15/17 18:23 - - 16 124/ 66 78 98 - PULSE OX INTERPRETATION: The Pulse ox is [100], which is [normal] Constitutional: [Alert, Well appearing, Well nourished, in no acute distress] Head: [Normocephalic, Atraumatic] Eyes: [PERRL, no scleral icterus] Nose: [Normal in appearance, no rhinorrhea] Mouth: [Moist mucous membranes] Neck: [Supple, trachea midline] Cardiovascular: [Regular rate and rhythm, no murmurs, rubs, gallops] Respiratory: [Clear to auscultation bilaterally without wheezes, rhonchi, rales. Equal air exchange without accessory muscle use] Gastrointestinal: [Active bowel sounds heard throughout. Non-distended, and is mildly tender in right lower quadrant and suprapubic area.. Soft without rigidity. No guarding. Negative psoas sign. Negative obturator sign. Negative heel strike. ] Genitourinary: [ External genitalia normal without rashes or lesions. Vaginal vault normal with about 2cc of blood. No pooling of blood in posterior fornix. Cervix visualized and closed. No cervical lesions. Cervix non-friable. No cervical motion tenderness. ] Skin: [Normal for age, no rash or lesions] Musculoskeletal: [No edema, normal peripheral perfusion and pulses] Neurologic: [Awake, alert, answers questions appropriately without slurred speech, no focal deficits] DIFFERENTIAL DIAGNOSIS: [ Menorrhagia, ovarian cysts, ovarian torsion, appendicitis, ectopic , spontaneous , irritable bowel syndrome] MEDICAL DECISION MAKING: [11-15-2017 17:26 22-year-old female presenting to the ED for evaluation of lower abdominal pain and vaginal bleeding since IUD removal on Friday. She states that the abdominal pain has been intermittent but not worsening in intensity. I do not believe that this abdominal pain is due to an emergent pathology such as ovarian torsion or appendicitis as she is not significantly tender on examination. She states the vaginal bleeding has became very heavy with clots. As of today, patient has been going through about 2 pads per hour. On pelvic examination there is about 2 mL seem with in the vaginal vault. There is no pooling of blood in the posterior fornix. The cervix is closed. Patient's test is negative. Her hemoglobin is stable at 15. 11-15-2017 18:55 patient's urinalysis shows a small amount of leukocytes in the urine. There are also white blood cells seen but in comparison to the amount of red blood cells, I believe that this is likely contamination and not a urinary tract infection. This patient does not have complaints of dysuria. Patient has not had underwear or pads on since pelvic examination about an hour and a half ago. When asked to stand, no blood is seen on bed sheets. Patient states that she has not felt like she is been bleeding over the past hour and a half. I believe that this is likely an abnormally heavy cycle for the patient I believe that she is safe to be discharged home and follow-up with POUL[facility]ANGER or PCP. I believe the abdominal pain is likely due to IUD removal 3 days ago. I discussed this case my attending physician, Dr. Jama, who agrees with workup and disposition. I have reviewed assessment and plan with patient who verbalizes understanding. Patient will be discharged home and follow-up with OB-TRANSMISSION REPAIRER or PCP provider in 72 hours. Patient is stable and agreeable to plan for discharge home.] DISCHARGE PLAN: Condition: [Stable]. Disposition: [Medically cleared], Discharged Date/Time: [11-15-2017 18:58 ] toHome Prescriptions:NONE [ ] Limitations: NONE Patient Education: Menorrhagia, [id number] [ ] Follow up with: Provider: Verona Hilliard MD Specialty: Family Practice Address: [address] [place], [place] [id number] (1) Date: 1 to 2 days Comment: Call for an Appointment Provider: Return to Emergency Department Specialty: Address: Date: Follow-up as needed Comment: Reasons to return to the ED discussed with patient such as fever >101 degrees F, intractable nausea/vomiting, increasing pain, increased bleeding, lack of improvement of symptoms, new symptoms. [ ] Counseled: [Patient]. FINAL DIAGNOSIS: [ menorrhagia ]Problem List/Past Medical History Ongoing Diabetes Mood disorder Historical No qualifying dataProcedure/Surgical History H/O: IUD usage, History of cholecystectomy.Medicat ions Home Abilify, PO, Daily Alogliptin, PO, Daily GlipiZIDE, PO, Daily HydrOXYzine pamoate, PO, QID lisinopril 10 mg oral tablet, 10 mg= 1 Tab, PO, Daily MetFORMIN, PO Proventil 2.5 mg/3 mL (0.083%) inhalation solution, 2.5 mg= 3 mL, Nebul, Q6h SEROquel, PO ED Administered Medications Prescriptions No active PrescriptionsAllergies NKASocial History Alcohol - Denies Alcohol Use Tobacco No qualifying data available.Lab Results CHEMISTRY est crcl ibw (ml/min)-rx: 137.73 est crcl adjbw (ml/min)-rx: 181.15 chloride level: 103 carbon dioxide level: 28 potassium level: 3.9 sodium level: 138 anion gap: 7.0 bun: 10 glucose level: 215 (High) Ref Range: 70 - 110 creatinine: 0.53 (Low) Ref Range: 0.66 - 1.30 calcium total: 10.1 gfr estimated : >60 gfr estimated non amer: >60 hcg quantitative: <1 HEMATOLOGY wbc count: 8.5 red blood cell count: 5.51 (High) Ref Range: 3.80 - 5.10 hemoglobin: 15.0 hematocrit: 43.1 mcv: 78.1 (Low) Ref Range: 80.0 - 97.0 mch: 27.2 mchc: 34.8 rdw: 14.1 platelet count: 264 mpv: 7.8 neutrophil absolute: 5.70 lymphocyte absolute: 2.20 monocyte absolute: 0.40 eosinophil absolute: 0.10 basophil absolute: 0.10 neutrophil: 67.7 lymphocyte: 25.7 monocyte: 5.1 eosinophil: 0.9 basophil: 0.6 BLOOD BANK antibody screen interpretation: NEGATIVE blood type abo and rh(d): APOS POINT OF CARE TESTING test poct -clinic: Negative URINALYSIS. wbc urine: 191 (High) Ref Range: 0 - 5 rbc urine: 4126 (High) Ref Range: 0 - 5 bacteria urine: RARE (Abnormal) squamous epithelial cells urin: MODERATE (Abnormal) mucous urine: FEW (Abnormal) appearance urine: TURBID (Abnormal) color urine: YELLOW ph urine: 6.0 specific gravity urine: 1.026 glucose urine: 500MG/DL (Abnormal) blood urine: 300/UL (Abnormal) ketones urine: 5MG/DL (Abnormal) protein urine: 100MG/DL (Abnormal) urobilinogen urine: NORMAL bilirubin urine: NEGATIVE leukocyte esterase urine: 25/UL (Abnormal) nitrite urine: NEGATIVE IMAGING RESULTS: Emergency Physician Interpretation: Radiologist CT Interpretation: Interpretation No qualifying data available. Emergency Physician Interpretation: Radiologist Diagnostics Interpretation: Interpretation No qualifying data available. Emergency Physician Interpretation: Radiologist MR Interpretation: Interpretation No qualifying data available. Emergency Physician Interpretation: Radiologist US Interpretation: Interpretation No qualifying data available. EKG INTERPRETATIONS: Time: [ ] Rate: [ ] EKG interpreted by [ ] Time: [ ] Rate: [ ] EKG interpreted by [ ] Time: [ ] Rate: [ ] EKG interpreted by [ ] ORDERS PLACED: Laboratory POC Urine Test (CO) Jama DO, Jamila November 15, 2017 16:30 Completed CBC with Differential Physician, Emergency November 15, 2017 16:49 Completed Basic Metabolic Panel Physician, Emergency November 15, 2017 16:49 Completed HCG Quantitative Physician, Emergency November 15, 2017 16:49 Completed GFRAF Physician, Emergency November 15, 2017 17:09 Completed GFRNAF Physician, Emergency November 15, 2017 17:09 Completed Urinalysis with Reflex Microscopic Jama DO, Jamila November 15, 2017 18:23 Completed U MICRO Jama DO, Jamila November 15, 2017 18:42 Completed Type and Screen Diana Mo November 15, 2017 16:49 Ordered [facility] ED Physician Notes PDF [facility] GFRaaon 11-15-2017 eGFR (black) mL/min/{1.73_m2} [facility] Comment on above: Result Comment: The MDRD equation has not been validated for those over 70 years, women, patients with serious co-morbid conditions, or with extremes of bodysize, muscle mass of nutritional status. Performed By: #### 6 9405-9, 60596-8b8, 79934-2 ####[facility], [address] [place] [address]. GFRbbon 11-15-2017 eGFR (non-black) mL/min/{1.73_m2} [facility] Comment on above: Performed By: #### 6 9405-9, 61849-9f5, 47034-9 ####[facility], [address], [place]. HCG Quantitativeon 8 HCG Qn m[IU]/mL [facility] Comment on above: Result Comment: Preg Reference Ranges Negative = < 5 mIU/ml Positive = > OR EQUAL TO 5 mIU/mlThe concentration of HCG rises rapidly during early .A maximum level of 5,000 to 200,000 mIU/ML is reached at 6-8weeks. This is followed by a slow decline to levels of 1,000 to 50,000mIU/ML during the third trimester.This test should be used only for the diagnosis and monitoring of .It should not be used for monitoring of neoplastic conditions includinggestational trophoblastic disease(partial mole, complete hydatidiform mole,choriocarcinoma) or other tumors. For monitoring of neoplastic disease aBeta subunit HCG test should be ordered.Results obtained using different immunoassay methods arenot interchangeable. Patient results should not be trended usingvalues obtained with a different immunoassay method. Performed By: #### 6 9405-9, 24757-5r2, 07739-1 ####[facility], [address], [place]. Urinalysis Microscopicon Urine, bacteria in sediment RARE Abnormal NONE/HPF [facility] Comment on above: Performed By: #### 6 9405-9, 53811-9y6, 06892-3 ####[facility], [address] [place] [address]. Urine, erythrocytes in sediment by area 4126 /[HPF] High 0-5 [facility] Comment on above: Performed By: #### 6 9405-9, 70044-0m6, 03624-2 ####[facility], [address], [place]. Urine, leukocytes in sedmiment 191 /[HPF] High 0-5 [facility] Comment on above: Performed By: #### 6 9405-9, 77247-7j3, 69165-2 ####[facility], [address], [place]. Urine, mucus presence in sediment FEW Abnormal NONE/LPF [facility] Comment on above: Performed By: #### 6 9405-9, 50067-8t9, 03512-7 ####[facility], [address], [place]. Urine, squamous cells in sediment MODERATE Abnormal FEW/LPF [facility] Comment on above: Performed By: #### 6 9405-9, 74140-5i9, 12546-6 ####[facility], [address] [place], [place]. Urinalysis with Microscopic Automaticon 11-15-2017 Bilirubin Urine Negative Normal NEGATIVE [facility] Comment on above: Performed By: #### 6 9405-9, 41466-4r7, 63829-5 ####[facility], [address] [place], [place]. Nitrite Urine Negative Normal NEGATIVE [facility] Comment on above: Performed By: #### 6 9405-9, 15484-1k6, 73573-6 ####[facility], [address], [place]. Urine, appearance TURBID Abnormal CLEAR [facility] Comment on above: Performed By: #### 6 9405-9, 18300-8z5, 50389-7 ####[facility], [address] [place], [place]. Urine, color YELLOW Normal YELLOW [facility] Comment on above: Performed By: #### 6 9405-9, 51226-9y0, 15928-4 ####[facility], [address] [place], [place]. Urine, glucose presence 500MG/DL Abnormal NORMAL [facility] Comment on above: Performed By: #### 6 9405-9, 53378-7c1, 09165-9 ####[facility], [address] [place], [place]. Urine, hemoglobin presence 300/UL Abnormal NEGATIVE [facility] Comment on above: Performed By: #### 6 9405-9, 28910-8l3, 35825-8 ####[facility], [address], [place]. Urine, ketones presence 5MG/DL Abnormal NEGATIVE [facility] Comment on above: Performed By: #### 6 9405-9, 64622-7o7, 59406-9 ####[facility], [address] [place] [address]. Urine, leukocyte esterase presence 25/UL Abnormal NEGATIVE [facility] Comment on above: Performed By: #### 6 9405-9, 18091-7x0, 58626-1 ####[facility], [address], [place]. Urine, pH 6.0 [pH] Normal 4.5-8.0 [facility] Comment on above: Performed By: #### 6 9405-9, 71685-4a5, 45915-2 ####[facility], [address], [place]. Urine, protein 100 mg/dL Abnormal NEGATIVE [facility] Comment on above: Performed By: #### 6 9405-9, 07937-0w5, 88266-9 ####[facility], [address] [place] [address]. Urine, specific gravity 1.026 Normal 1.002-1.030 [facility] Comment on above: Performed By: #### 6 9405-9, 69637-9x6, 93463-1 ####[facility], [address] [place] [address]. Urobilinogen Urine NORMAL Normal NORMAL [facility] Comment on above: Performed By: #### 6 9405-9, 25234-8j9, 36061-4 ####[facility], [address] [place] [address]. ED Physician Noteson 018 ED Physician Notes Chief Complaint nauseaED Assigned Provider/Time Time Seen: Poncho El / 10/09/2017 18:37History of Present Illness I have introduced myself as a Physician Lace Stripper and informed the patient of the supervising/collaborati ng physician who is available upon request (Dr. Hernandez). I have discussed the case with the ED physician who participated in the decisions regarding any therapeutic interventions. Patient is a 22 years old female with a known history of mood disorder, anxiety/depression presenting to the ED for epigastric abdominal pain that started 2 days ago. Patient is nauseous without vomiting. No diarrhea. No urinary related symptoms, however patient states she has pain to the lower back. Patient call this kidney pain. Patient has no flank pain. Patient denies any fever. Patient has an IUD in, and has a negative urine . REVIEW OF SYSTEMS: Constitutional: [No fevers or chills] Eyes: [No visual changes] ENMT: [No sore throat, runny nose, stuffy nose] Cardiovascular: [No chest pain or palpitations] Respiratory: [No cough or difficulty breathing] Gastrointestinal: [See history of present illness] Genitourinary: [No pain or burning with urination] Musculoskeletal: [No pain in extremities] Integumentary: [No rashes] Neurological: [No numbness, tingling, or weakness] Hematologic: [No bruising] All other systems reviewed are negative PHYSICAL EXAM; Constitutional: [Alert, Well appearing, Well nourished, in no acute distress] Head: [Normocephalic, Atraumatic] Eyes: [PERRL, no scleral icterus] Nose: [Normal in appearance, no rhinorrhea] Mouth: [Moist mucous membranes] Neck: [Supple, trachea midline] Gastrointestinal: [Soft, nondistended, tender to the epigastric region. Patient has no rebound, no guarding, no rigidity.] Back: [Mild discomfort with palpation of the lower back diffusely. Patient has negative CVA tenderness bilaterally. Good range of motion without any discomfort.] Skin: [Normal for age, no rash or lesions]Physical Exam Vitals and Measurements T: 99 F HR: 117 RR: 16 BP: 141/84 SpO2: 97% HT: 160.02 cm WT: 94.4 kg BMI: 36.9 Medical Decision Making Patient is a 22 years old female with a known history of mood disorder, anxiety/depression presenting to the ED for epigastric abdominal pain that started 2 days ago. Patient otherwise appears to be stable and in no apparent distress. Patient physical exam was positive for mild discomfort to the epigastric region. Patient has had a cholecystectomy already. Patient basic labs were obtained came back as unremarkable. Patient urine however did show 1+ leukocytes, and it would be covered for possible urinary tract infection. Patient was advised to follow-up with PCP for further evaluation. Return to the ED for near worsening symptoms.Assessment/Blanca n Acute UTI Epigastric pain Orders: cephalexin, Take 1 Cap, PO, TID, X 7 Day(s), # 21 Cap, 0 Refill(s) sucralfate, Take 1 Tab, PO, QID, PRN For Pain, # 40 Tab, 0 Refill(s)Problem List/Past Medical History Ongoing Diabetes Mood disorder Historical No qualifying dataProcedure/Surgical History H/O: IUD usage, History of cholecystectomy.Medicat ions Home Abilify, PO, Daily Alogliptin, PO, Daily GlipiZIDE, PO, Daily HydrOXYzine pamoate, PO, QID lisinopril 10 mg oral tablet, 10 mg= 1 Tab, PO, Daily MetFORMIN, PO SEROquel, PO ED Administered Medications Al hydroxide/Mg hydroxide/simethicone: 30 mL Adm Date/time:10/09/2017 18:56 Route: PO hyoscyamine: 0.125 mg Adm Date/time:10/09/2017 18:56 Route: Subl lidocaine topical: 10 mL Adm Date/time:10/09/2017 18:56 Route: PO ondansetron: 4 mg Adm Date/time:10/09/2017 18:56 Route: PO Prescriptions Keflex monohydrate 500 mg oral capsule, 500 mg= 1 Cap, PO, TID sucralfate 1 gm oral tablet, 1 Gm= 1 Tab, PO, QID, PRNAllergies NKASocial History Alcohol - Denies Alcohol Use Tobacco Smoking Status: Current everyday smoker Type of Smoker: Light smoker Type of Tobacco Use: Cigarettes Packs of Cigarettes Smoked per Day: 0.2Lab Results POINT OF CARE TESTING test poct -clinic: Negative urine color poct -clinic: Yellow (Normal) urine clarity poct -clinic: Clear (Normal) glucose urine poct: 250 mg/dL bilirubin urine poct: Negative (Normal) ketones urine poct: Trace specific gravity urine poct: 1.030 blood urine poct: 1+ small ph urine poct: 5 protein urine poct: Negative (Normal) urobilinogen urine poct: 0 nitrite urine poct: Negative (Normal) leukocytes urine poct: 1+ small URINALYSIS. appearance urine: TURBID (Abnormal) color urine: PACHECO ph urine: 5.0 specific gravity urine: 1.032 (High) Ref Range: 1.002 - 1.030 glucose urine: 150MG/DL (Abnormal) blood urine: 10/UL (Abnormal) ketones urine: 5MG/DL (Abnormal) protein urine: 30MG/DL (Abnormal) urobilinogen urine: NORMAL bilirubin urine: NEGATIVE leukocyte esterase urine: 25/UL (Abnormal) nitrite urine: NEGATIVE wbc urine: 6 (High) Ref Range: 0 - 5 rbc urine: 5 squamous epithelial cells urin: MANY (Abnormal) mucous urine: RARE (Abnormal) CHEMISTRY est crcl ibw (ml/min)-rx: 86.90 est crcl adjbw (ml/min)-rx: 114.76 chloride level: 102 carbon dioxide level: 23 potassium level: 3.6 sodium level: 137 anion gap: 12.0 bun: 15 glucose level: 252 (High) Ref Range: 70 - 110 creatinine: 0.84 calcium total: 10.2 albumin level: 4.6 protein: 7.9 bilirubin total: 0.4 bilirubin direct: 0.0 (Low) Ref Range: 0.1 - 0.5 bilirubin indirect: 0.4 alt/sgpt: 45 alkaline phosphatase: 81 ast/sgot: 23 gfr estimated non amer: >60 gfr estimated : >60 lipase level: 13 (Low) Ref Range: 22 - 51 HEMATOLOGY wbc count: 8.5 red blood cell count: 5.60 (High) Ref Range: 3.80 - 5.10 hemoglobin: 14.8 hematocrit: 43.9 mcv: 78.4 (Low) Ref Range: 80.0 - 97.0 mch: 26.4 (Low) Ref Range: 27.0 - 34.0 mchc: 33.6 rdw: 15.0 (High) Ref Range: 11.0 - 14.8 platelet count: 293 mpv: 8.0 neutrophil absolute: 5.50 lymphocyte absolute: 2.50 monocyte absolute: 0.40 eosinophil absolute: 0.20 basophil absolute: 0.10 neutrophil: 64.2 lymphocyte: 29.2 monocyte: 4.1 eosinophil: 1.8 basophil: 0.7 ORDERS PLACED: Laboratory POC Urinalysis Manual (CO) Priti WEBSTER Jamila October 09, 2017 18:34 Completed POC Urine Test (CO) Priti WEBSTER Jamila October 09, 2017 18:34 Completed Urinalysis with Reflex Microscopic Poncho El October 09, 2017 18:44 Completed BMP (Basic Metabolic Panel) Poncho El October 09, 2017 18:44 Completed CBC with Differential Poncho El October 09, 2017 18:44 Completed Lipase Poncho El October 09, 2017 18:44 Completed Hepatic Function Panel Poncho El October 09, 2017 18:44 Completed U MICRO Poncho El October 09, 2017 19:28 Completed GFRAF Poncho El October 09, 2017 19:32 Completed GFRNAF Poncho El October 09, 2017 19:32 Completed Normal [facility] ED Physician Notes PDF Normal [facility] Basic Metabolic Panelon 05-0 Anion gap 12.0 mmol/L Normal 6.0-18.0 [facility] Comment on above: Result Comment: PLEA SE NOTE:The calculated Anion Gap(AGAP) does not include Potassium. Performed By: #### 6 9405-9, 44879-3f4, 34591-5 ####[facility], [address], [place]. Calcium 10.2 mg/dL Normal 8.9-10.3 [facility] Comment on above: Performed By: #### 6 9405-9, 76966-3c5, 57684-5 ####[facility], [address] [place], [place]. Chloride 102 mmol/L Normal 98-107 [facility] Comment on above: Performed By: #### 6 9405-9, 31170-6b9, 15480-5 ####[facility], [address], [place]. CO2 23 mmol/L Normal 22-32 [facility] Comment on above: Performed By: #### 6 9405-9, 07424-8i8, 47701-2 ####[facility], [address], [place]. Creatinine 0.84 mg/dL Normal 0.66-1.30 [facility] Comment on above: Performed By: #### 6 9405-9, 43284-1q8, 65034-0 ####[facility], [address], [place]. Glucose mass conc 252 mg/dL High 70-110 [facility] Comment on above: Performed By: #### 6 9405-9, 52301-3e3, 44281-1 ####[facility], [address], [place]. Potassium molar conc 3.6 mmol/L Normal 3.6-5.1 [place] Comment on above: Performed By: #### 6 9405-9, 13700-3m4, 95985-4 ####[facility], [address], [place]. Sodium 137 mmol/L Normal 136-145 [facility] Comment on above: Performed By: #### 6 9405-9, 29878-7a7, 91852-6 ####[facility], [address], [place]. Urea nitrogen 15 mg/dL Normal 8-20 [facility] Comment on above: Performed By: #### 6 9405-9, 86983-5g4, 88130-9 ####[facility], [address], [place]. CBC with Differentialon 05-0 Basophils Auto #/vol (Bld) 0.10 thou/mcL Normal 0.00-0.20 [facility] Comment on above: Performed By: #### 6 9405-9, 23658-1u1, 16433-7 ####[facility], [address] [address] [place] Basophils Auto #/vol (Bld) 0.7 % Normal 0.0-2.0 [facility] Comment on above: Performed By: #### 6 9405-9, 75248-8e8, 49140-4 ####[facility], [address] [place], [place]. Eosinophils 0.20 thou/mcL Normal 0.00-0.70 [facility] Comment on above: Performed By: #### 6 9405-9, 91404-3j7, 16140-8 ####[facility], [address] [place], [place]. Eosinophils/100 leukocytes 1.8 % Normal 0.0-7.0 [facility] Comment on above: Performed By: #### 6 9405-9, 22723-8i5, 76544-2 ####[facility], [address] [place], [place]. Erythrocyte distribution width Auto Ratio (RBC) 15.0 % High 11.0-14.8 [facility] Comment on above: Performed By: #### 6 9405-9, 30949-8h7, 14156-6 ####[facility], [address] [place], [place]. Erythrocytes (RBC) 5.60 million/mcL High 3.80-5.10 [facility] Comment on above: Performed By: #### 6 9405-9, 11564-2b8, 92880-5 ####[facility], [address] [place], [place]. Hematocrit (HCT) 43.9 % Normal 35.0-45.0 [facility] Comment on above: Performed By: #### 6 9405-9, 13520-9b3, 57253-1 ####[facility], [address] [place], [place]. Hemoglobin mass conc (Bld) 14.8 g/dL Normal 12.0-16.0 [facility] Comment on above: Performed By: #### 6 9405-9, 19028-1m3, 28545-5 ####[facility], [address] [place], [place]. Lymphocytes 2.50 thou/mcL Normal 1.00-4.80 [facility] Comment on above: Performed By: #### 6 9405-9, 05080-9a5, 61058-6 ####[facility], [address] [place], [place]. Lymphocytes/100 leukocytes 29.2 % Normal 22.0-44.0 [facility] Comment on above: Performed By: #### 6 9405-9, 80287-3h4, 74781-1 ####[facility], [address] [place], [place]. MCH 26.4 Picograms Low 27.0-34.0 [facility] Comment on above: Performed By: #### 6 9405-9, 66574-1g2, 61582-4 ####[facility], [address] [place], [place]. MCHC mass conc (RBC) 33.6 g/dL Normal 32.0-36.0 [place] Comment on above: Performed By: #### 6 9405-9, 97963-0a9, 29603-3 ####[facility], [address] [place], [place]. MCV 78.4 fL Low 80.0-97.0 [facility] Comment on above: Performed By: #### 6 9405-9, 12717-0y7, 50734-7 ####[facility], [address] [place], [place]. Monocytes 0.40 thou/mcL Normal 0.00-0.90 [facility] Comment on above: Performed By: #### 6 9405-9, 75162-9s3, 95485-5 ####[facility], [address] [place], [place]. Monocytes/100 leukocytes 4.1 % Normal 0.0-12.0 [facility] Comment on above: Performed By: #### 6 9405-9, 66567-8p6, 29836-6 ####[facility], [address] [place], [place]. Neutrophils 5.50 thou/mcL Normal 1.80-7.70 [facility] Comment on above: Performed By: #### 6 9405-9, 21306-8y6, 35961-5 ####[facility], [address] [place], [place]. Neutrophils/100 WBC Auto (Bld) 64.2 % Normal 40.0-70.0 [facility] Comment on above: Performed By: #### 6 9405-9, 06376-7v1, 90337-1 ####[facility], [address] [place], [place]. Platelet mean volume (PMV) 8.0 fL Normal 6.2-12.1 [facility] Comment on above: Performed By: #### 6 9405-9, 43803-4p3, 28340-1 ####[facility], [address] [place], [place]. Platelets 293 thou/mcL Normal 142-424 [facility] Comment on above: Performed By: #### 6 9405-9, 16375-0h5, 04931-1 ####[facility], [address] [place], [place]. WBC (Leukocytes) 8.5 thou/mcL Normal 4.6-10.2 [facility] Comment on above: Performed By: #### 6 9405-9, 69709-4e9, 23750-0 ####[facility], [address] [place], [place]. Depart Summaryon 10-09-2017 Depart Summary EMERGENCY DEPARTMENT DISCHARGE SUMMARYPATIENT NAME:MELISSA BYRNE MRN: [id number]: 22 Years SEX: Female PHONE:[id number]: 10/09/2017 6:00 PM : 1995 ATTENDING PHYSICIAN:Josie Hernandez MD PCP: Verona Hilliard MD CHIEF COMPLAINT: nausea Allergies NKAProblems Active Mood disorder Diabetes DISCHARGE DIAGNOSIS: Acute UTI; Epigastric pain DISCHARGE INSTRUCTIONS: Abdominal Pain, Adult; Urinary Tract Infection ED PHYSICIAN DOCUMENTATION: DISPOSITION:Time of Departure From ER 10/09/2017 20:40 Discharge/Transfer From ER Home 01 MEDICATION LISTS: CURRENT MEDICATION LISTalogliptin (Alogliptin) By Mouth once a day.ARIPiprazole (Abilify) By Mouth once a day.cephalexin (Keflex monohydrate 500 mg oral capsule) 1 Capsule By Mouth 3 Times a day for 7 Days. Refills: 0.GlipiZIDE By Mouth once a day.HydrOXYzine (HydrOXYzine pamoate) By Mouth 4 Times/Day.lisinopril (lisinopril 10 mg oral tablet) 1 Tab(s) By Mouth once a day.MetFORMIN By Mouth.QUEtiapine (SEROquel) By Mouth.sucralfate (sucralfate 1 gm oral tablet) 1 Tab(s) By Mouth 4 Times/Day as needed For Pain for 10 Days. Refills: 0. MEDICATIONS GIVEN DURING MEDICAL VISITAl hydroxide/Mg hydroxide/simethicone 30 mL last dose given on 10/09/2017 at 18:56 Route: By Mouth SHAKE WELL hyoscyamine 0.125 mg last dose given on 10/09/2017 at 18:56 Route: Under the Tongue lidocaine topical 10 mL last dose given on 10/09/2017 at 18:56 Route: By Mouth ondansetron 4 mg last dose given on 10/09/2017 at 18:56 Route: By Mouth This file is not coded for chemotherapy reimbursement- LAB RESULTS:LABORATORY TESTS: Abnormal Lab Result(s): Date Order Results 10/09/2017 18:35 Specific [place] Urine POCT N 1.030 10/09/2017 18:35 pH Urine POCT N 5 10/09/2017 18:35 Urobilinogen Urine POCT N 0 mg/dL 10/09/2017 18:45 Appearance Urine A TURBID 10/09/2017 18:45 Specific [place] Urine H 1.032 10/09/2017 18:45 Glucose Urine A 150MG/DL 10/09/2017 18:45 Blood Urine A 10/UL 10/09/2017 18:45 Ketones Urine A 5MG/DL 10/09/2017 18:45 Protein Urine A 30MG/DL 10/09/2017 18:45 Leukocyte Esterase Urine A 25/UL 10/09/2017 18:45 WBC Urine H 6 /hpf 10/09/2017 18:45 Squamous Epithelial Cells Urine A MANY 10/09/2017 18:45 Mucous Urine A RARE 10/09/2017 19:25 Red Blood Cell Count H 5.60 million/mcL 10/09/2017 19:25 MCV L 78.4 FL 10/09/2017 19:25 MCH L 26.4 Picograms 10/09/2017 19:25 RDW H 15.0 % 10/09/2017 19:25 Lipase Level L 13 Units/L 10/09/2017 19:25 Glucose Level H 252 mg/dL 10/09/2017 19:25 Bilirubin Direct L 0.0 mg/dL RADIOLOGY: FOLLOW UP:FOLLOW-UP APPOINTMENTS: Provider: Specialty: Address: Date: Verona Hilliard MD Family Practice [address] [place] [address] [phone] (1) 1 to 2 days Normal [facility] ED Pat Eduon 10-09-2017 ED [place] [address] [facility] Department Discharge Instructions MELISSA BYRNE , Please provide this information to your Primary Care/Specialist Name : MELISSA BYRNE Current Date : 10/09/2017 20:40:15DOB : 1995 12:00 PM Primary Care Physician: Verona Hilliard MD Diagnosis : Acute UTI; Epigastric pain Follow-Up Instructions:MELISSA BYRNE has been given these follow-up instructions: FOLLOW-UP APPOINTMENTS: Provider: Specialty: Address: Date: Verona Hilliard MD Family Practice [address] [place] [address] [phone] (1) 1 to 2 days Laboratory Orders: Name: Status: Urinalysis Manual POCT (CO) Completed Urine Test POCT (CO) Completed Urinalysis with Microscopic Automatic Completed Basic Metabolic Panel Completed CBC with Differential Completed Lipase Completed Hepatic Function Panel Completed Urinalysis Microscopic Completed GFRaa Completed GFRbb Completed Radiology Orders: None Ordered Diagnostic Tests: None Ordered Procedure(s) and Patient Education(s) : Abdominal Pain, Adult; Urinary Tract Infection EMERGENCY SERVICES MEDICATION LISTLista de Medicaciones de los Servicios de Emergencia Name MELISSA BYRNE MRN ([facility])-[id number] PLEASE READ THE FOLLOWING REGARDING YOUR MEDICATIONS Based on the information available during your visit we have given you the medication instructions below. Continue taking medications you took prior to your visit unless you have been told to change. Please share this information with your own doctor. Carry a list of your medications with you in case of an emergency. Update it when medications are stopped, doses are changed, or new medications (including gunb-nuj-jqkqedf products) are added. If you have any questions, check with your doctor. Por la informaci??n disponible ai martinez visita, las instrucciones de medicaci??n aparecen debajo. Favor de continuar tomando las medicaciones Ud. bernadette?? antes de martinez visita por lo menos que hay cambios. Favor de compartir esta informaci??n con martinez medico. Lleva sandra lista de medicaciones consigo por nirali de emergenc??a. Actualiza la lista cuando Ud. neeraj de richard las medicaciones, si cambian las dosis, o si hay nuevas medicaciones a??adidas (incluyendo medicaciones vendidas sin prescripci??n). Favor de preguntar a martinez medico por cualquier kristen. THESE ARE THE MEDICATIONS YOU SHOULD BE TAKINGalogliptin (Alogliptin) By Mouth once a day.ARIPiprazole (Abilify) By Mouth once a day.cephalexin (Keflex monohydrate 500 mg oral capsule) 1 Capsule By Mouth 3 Times a day for 7 Days. Refills: 0.GlipiZIDE By Mouth once a day.HydrOXYzine (HydrOXYzine pamoate) By Mouth 4 Times/Day.lisinopril (lisinopril 10 mg oral tablet) 1 Tab(s) By Mouth once a day.MetFORMIN By Mouth.QUEtiapine (SEROquel) By Mouth.sucralfate (sucralfate 1 gm oral tablet) 1 Tab(s) By Mouth 4 Times/Day as needed For Pain for 10 Days. Refills: 0.MEDICATIONS GIVEN DURING MEDICAL VISITAl hydroxide/Mg hydroxide/simethicone 30 mL last dose given on 10/09/2017 at 18:56 Route: By Mouth SHAKE WELL hyoscyamine 0.125 mg last dose given on 10/09/2017 at 18:56 Route: Under the Tongue lidocaine topical 10 mL last dose given on 10/09/2017 at 18:56 Route: By Mouth ondansetron 4 mg last dose given on 10/09/2017 at 18:56 Route: By Mouth This file is not coded for chemotherapy reimbursement- NON-MEDICATION PRESCRIPTION SCHEDULING PHONE NUMBER: MEDICATION CHANGE DETAILS (Not your Final Home Medication List) During the course of your visit, your home medication list was updated with the most current information. The details of those changes are shown below: NEW MEDICATIONSPrinted Prescriptionscephalexin (Keflex monohydrate 500 mg oral capsule) 1 Capsule By Mouth 3 Times a day for 7 Days. Refills: 0.Comment ____sucralfate (sucralfate 1 gm oral tablet) 1 Tab(s) By Mouth 4 Times/Day as needed For Pain for 10 Days. Refills: 0.Comment ____UPDATED MEDICATIONSNoneUNCHANGE D MEDICATIONSOther Medicationsalogliptin (Alogliptin) By Mouth once a day.Comment ARIPiprazole (Abilify) By Mouth once a day.Comment GlipiZIDE By Mouth once a day.Comment HydrOXYzine (HydrOXYzine pamoate) By Mouth 4 Times/Day.Comment lisinopril (lisinopril 10 mg oral tablet) 1 Tab(s) By Mouth once a day.Comment MetFORMIN By Mouth.Comment QUEtiapine (SEROquel) By Mouth.Comment STOP TAKING THESE MEDICATIONSNoneDO NOT TAKE UNTIL YOU TALK TO YOUR DOCTORNone [place] [address] [facility] Department Discharge Instructions Name: MELISSA BYRNE Current Date: 10/09/2017 20:40:15 : 1995 12:00 PM Primary Physician: Verona Hilliard MD We would like to thank you for choosing [facility] for your emergency medical needs. We examined and treated you today on an emergency basis only. This was not a substitute for, or an effort to provide, complete medical care. In most cases, you must let your doctor (or the doctor we referred you to) check you again. Tell your doctor about any new or lasting problems. We cannot recognize and treat all injuries or illnesses in one emergency department visit. After you leave, you should follow the directions attached. Instructions for obtaining X-rays:When following up with your doctor, you may need to take copies of your x-rays that were done in the Emergency Department. If you didn't receive these upon your discharge from the emergency department, please call . When the final report becomes available and it is reviewed, the emergency department will attempt to contact you if there are any changes in your instructions. It is important that you leave accurate information with us on how to contact you. IF you cannot be contacted, YOU must contact the follow-up doctor that you were assigned to make sure that the final official x-ray report does not require a change in your treatment. Instructions for obtaining medical records:If you need a copy of your medical records for follow-up, please contact the Health Information Management Department at . Their office hours are 8 AM- 4:30 PM, Friday through Friday. Please note: Results are not immediately available. Please allow a minimum of 36 hours for documentation and results.If you were prescribed an antibiotic:Antibiotics are life-saving drugs and they need to be used properly. Your team might change your antibiotic because test results show that a different antibiotic would be better to treat your infection. Like all medications, antibiotics have side effects. Some can be serious. This includes the risk of getting an antibiotic-resistant infection later, which may be difficult to treat. Remember to take your antibiotics as prescribed. If you have any questions please talk to your healthcare team.Seatbelts:There is no doubt that seatbelts save lives. Every day, people without seatbelts have more serious injuries. Have everyone buckle up, using age appropriate seatbelts or car seats, to reduce their risk of injury.Smoking:If you do smoke, we encourage you to stop. Smoking affects all aspects of your health and the health of those around you. Call the [place] [employer] at 2-362-BDYJ-[place] or the [place] [employer] at 5-958-LVR-0370 for more information.High blood pressure: Your screening blood pressure today was 114 mm Hg / . Hypertension (high blood pressure) is blood pressure over 120/80. People with hypertension should contact their primary care provider within 30 days to follow up. Check your patient portal for additional blood pressure information.Immunizatio ns:Immunization is a way to protect against deadly infections. Discuss this with your child's business liaison manager, or Public Health Department. Your family practice doctor can determine if you need pneumonia or flu vaccine. The [facility] Department can be reached at .Domestic Violence:If you are a victim of domestic violence (physical, verbal, or emotional), you are not alone. Discuss this with your physician or a friend and call Choices Hotline ( for assistance and support.You are the most important factor in your recovery. Follow the provided instructions carefully. Take your medications as prescribed. Most importantly, see a doctor again as discussed. If you have problems that we have not discussed, call or visit your doctor right away. If you do not have a primary care physician, we have provided one for you to follow up with. When you call for an appointment, please inform them that you were seen in the emergency department and the date of your visit. If you are unable to reach your doctor and are still experiencing problems, return to the emergency department. For assistance finding a primary care physician, call the Physician Referral Line at .Suicide Hotline:Your mental and emotional well-being is important. If you are in a mental health crisis or are having thoughts of suicide, please call the nationwide suicide hotline, anytime day or night, at 8-326-345-DQKB. Pharmacy Information:Below is a list of 24 hour pharmacies that we are aware of. We suggest that you call the specific pharmacy for their hours before traveling to a location. Hours may vary on holidays. [facility] [address] [address] [phone] [phone] [address] [phone] [address] [phone] [phone] [address] [address] [phone] [place] [address] [phone] Take all medications as directed. If you need prescription assistance, contact the following agencies:?? Partnership for Prescription Assistance at or www.[employer].org?? [facility] HospitalFile[facility] Best Rx at or www.Medical Device Innovationsstrx.org?? [employer] is a site with many valuable coupons Patient Education Materials MELISSA BYRNE AMRITA has been given the following patient education materials: Emergency MedicineAbdominal Pain, AdultMany things can cause abdominal pain. Usually, abdominal pain is not caused by a disease and will improve without treatment. It can often be observed and treated at home. Your health care provider will do a physical exam and possibly order blood tests and X-rays to help determine the seriousness of your pain. However, in many cases, more time must pass before a clear cause of the pain can be found. Before that point, your health care provider may not know if you need more testing or further treatment. HOME CARE INSTRUCTIONSMonitor your abdominal pain for any changes. The following actions may help to alleviate any discomfort you are experiencing:???Only take hchu-gqu-xrnhidz or prescription medicines as directed by your health care provider. ???Do not take laxatives unless directed to do so by your health care provider.???Try a clear liquid diet (broth, tea, or water) as directed by your health care provider. Slowly move to a bland diet as tolerated.SEEK MEDICAL CARE IF:???You have unexplained abdominal pain.???You have abdominal pain associated with nausea or diarrhea. ???You have pain when you urinate or have a bowel movement.???You experience abdominal pain that wakes you in the night.???You have abdominal pain that is worsened or improved by eating food.???You have abdominal pain that is worsened with eating fatty foods.???You have a fever. SEEK IMMEDIATE MEDICAL CARE IF:???Your pain does not go away within 2 hours.???You keep throwing up (vomiting).???Your pain is felt only in portions of the abdomen, such as the right side or the left lower portion of the abdomen.???You pass bloody or black tarry stools.MAKE SURE YOU:???Understand these instructions. ?Will watch your condition. ?Will get help right away if you are not doing well or get worse. ?This information is not intended to replace advice given to you by your health care provider. Make sure you discuss any questions you have with your health care provider.Document Released: 03/05/2006 Document Revised: 06/16/2015 Document Reviewed: 02/02/2014Francisca Interactive Patient Education ?2016 [employer].Obstetrics and GynecologyUrinary Tract InfectionUrinary tract infections (UTIs) can develop anywhere along your urinary tract. Your urinary tract is your body's drainage system for removing wastes and extra water. Your urinary tract includes two kidneys, two ureters, a bladder, and a urethra. Your kidneys are a pair of barajas-shaped organs. Each kidney is about the size of your fist. They are located below your ribs, one on each side of your spine. CAUSESInfections are caused by microbes, which are microscopic organisms, including fungi, viruses, and bacteria. These organisms are so small that they can only be seen through a microscope. Bacteria are the microbes that most commonly cause UTIs.SYMPTOMSSymptoms of UTIs may vary by age and gender of the patient and by the location of the infection. Symptoms in young women typically include a frequent and intense urge to urinate and a painful, burning feeling in the bladder or urethra during urination. Older women and men are more likely to be tired, shaky, and weak and have muscle aches and abdominal pain. A fever may mean the infection is in your kidneys. Other symptoms of a kidney infection include pain in your back or sides below the ribs, nausea, and vomiting.DIAGNOSISTo diagnose a UTI, your caregiver will ask you about your symptoms. Your caregiver also will ask to provide a urine sample. The urine sample will be tested for bacteria and white blood cells. White blood cells are made by your body to help fight infection.TREATMENTTypi quan, UTIs can be treated with medication. Because most UTIs are caused by a bacterial infection, they usually can be treated with the use of antibiotics. The choice of antibiotic and length of treatment depend on your symptoms and the type of bacteria causing your infection.HOME CARE INSTRUCTIONS???If you were prescribed antibiotics, take them exactly as your caregiver instructs you. Finish the medication even if you feel better after you have only taken some of the medication.???Drink enough water and fluids to keep your urine clear or pale yellow.???Avoid caffeine, tea, and carbonated beverages. They tend to irritate your bladder.???Empty your bladder often. Avoid holding urine for long periods of time.???Empty your bladder before and after sexual intercourse.???After a bowel movement, women should cleanse from front to back. Use each tissue only once.SEEK MEDICAL CARE IF:???You have back pain.???You develop a fever.???Your symptoms do not begin to resolve within 3 days.SEEK IMMEDIATE MEDICAL CARE IF:???You have severe back pain or lower abdominal pain.???You develop chills.???You have nausea or vomiting.???You have continued burning or discomfort with urination.MAKE SURE YOU:???Understand these instructions.???Will watch your condition.???Will get help right away if you are not doing well or get worse.This information is not intended to replace advice given to you by your health care provider. Make sure you discuss any questions you have with your health care provider.Document Released: 03/05/2006 Document Revised: 06/16/2015 Document Reviewed: 07/03/2012Frnacisca Interactive Patient Education ?2016 [employer]VIRUSES OR BACTERIA: WHAT'S GOT YOU SICK?Antibiotics only treat BACTERIAL infections.VIRAL ILLNESSES do not get better with antibiotics.When an antibiotic is not prescribed, ask your healthcare professional for tips on how to relieve symptoms and feel better. Usual Cause Illness Viruses Bacteria Antibiotic Needed? Cold/Runny Nose X NO Bronchitis/Chest Cold(in otherwise healthy adults) X NO Whooping Cough X Yes Flu(not complicated by pneumonia) X NO Strep Throat X Yes Sore Throat X NO Fluid in the Middle Ear(otitis media with effusion) X NO Urinary Tract Infection X Yes For more information visit: www.cdc.gov/getsmart<>< ><><><><><><><><><><><> <><><><><><><><><><> <><> Patient Visit Summary Signature MELISSA BYRNE has been given the following list of patient education materials, prescriptions and follow-up instructions: ICHAVEZ ALEXANDRIA JUSTINE, have received the above patient education materials/instructions and have verbalized understanding: Date Time Patien t Signature Date Time Provid er Signature Normal [facility] GFRaaon 10-09-2017 eGFR (black) mL/min/{1.73_m2} Normal [facility] Comment on above: Result Comment: The MDRD equation has not been validated for those over 70 years, women, patients with serious co-morbid conditions, or with extremes of bodysize, muscle mass of nutritional status. Performed By: #### 6 9405-9, 11443-8m2, 70583-4 ####[facility], [address], [place]. GFRbbon 10-09-2017 eGFR (non-black) mL/min/{1.73_m2} Normal Mo [facility] Comment on above: Performed By: #### 6 9405-9, 39810-3u5, 87662-8 ####[facility], [address] [place], [place]. Hepatic Function Panelon Alanine aminotransferase (ALT) 45 Units/L Normal 14-63 [facility] Comment on above: Performed By: #### 6 9405-9, 96855-6e8, 45183-4 ####[facility], [address], [place]. Albumin 4.6 g/dL Normal 3.5-4.8 [facility] Comment on above: Performed By: #### 6 9405-9, 68058-9k9, 99796-2 ####[facility], [address] [place], [place]. Alkaline phosphatase (ALP) 81 Units/L Normal 32-91 [facility] Comment on above: Performed By: #### 6 9405-9, 12219-5p7, 04187-6 ####[facility], [address] [place], [place]. Aspartate aminotransferase (AST) 23 Units/L Normal 15-41 [facility] Comment on above: Performed By: #### 6 9405-9, 36882-1h9, 24388-0 ####[facility], [address] [place], [place]. Bilirubin (direct) 0.0 mg/dL Low 0.1-0.5 [facility] Comment on above: Performed By: #### 6 9405-9, 82288-9w5, 39597-7 ####[facility], [address] [place], [place]. Bilirubin (total) 0.4 mg/dL Normal 0.3-1.2 [facility] Comment on above: Performed By: #### 6 9405-9, 44091-9h7, 77113-4 ####[facility], [address] [place], [place]. Bilirubin.indirect mass conc 0.4 mg/dL Normal 0.0-1.0 [facility] Comment on above: Performed By: #### 6 9405-9, 39022-3p6, 39237-1 ####[facility], [address], [place]. Protein 7.9 g/dL Normal 6.1-7.9 [facility] Comment on above: Performed By: #### 6 9405-9, 93559-1r3, 20002-6 ####[facility], [address] [place], [place]. Lipaseon 10-09-2017 Lipase 13 Units/L Low 22-51 [facility] Comment on above: Performed By: #### 6 9405-9, 15041-0j4, 40883-8 ####[facility], [address] Urinalysis Microscopicon Urine, erythrocytes in sediment by area 5 /[HPF] Normal 0-5 [facility] Comment on above: Performed By: #### 6 9405-9, 58273-9f2, 43054-4 ####[facility], [address] Urine, leukocytes in sedmiment 6 /[HPF] High 0-5 [facility] Comment on above: Performed By: #### 6 9405-9, 76636-9w9, 48349-5 ####[facility], [address] Urine, mucus presence in sediment RARE Abnormal NONE/LPF [facility] Comment on above: Performed By: #### 6 9405-9, 14111-9y2, 03206-2 ####[facility], [address] [place], [place]. Urine, squamous cells in sediment MANY Abnormal FEW/LPF [facility] Comment on above: Performed By: #### 6 9405-9, 64805-1s9, 14402-6 ####[facility], [address] [place], [place]. Urinalysis with Microscopic Automaticon 10-09-2017 Bilirubin Urine Negative Normal NEGATIVE [facility] Comment on above: Performed By: #### 6 9405-9, 54588-8x8, 18205-8 ####[facility], [address] Nitrite Urine Negative Normal NEGATIVE [facility] Comment on above: Performed By: #### 6 9405-9, 46844-2y3, 15229-1 ####[facility], [address] [place], [place]. Urine, appearance TURBID Abnormal CLEAR [facility] Comment on above: Performed By: #### 6 9405-9, 11098-2g0, 15960-8 ####[facility], [address], [place] Urine, color PACHECO Normal YELLOW [facility] Comment on above: Performed By: #### 6 9405-9, 64688-3e9, 37832-7 ####[facility], [address] [place], [place]. Urine, glucose presence 150MG/DL Abnormal NORMAL [facility] Comment on above: Performed By: #### 6 9405-9, 44291-4q0, 14921-0 ####[facility], [address] Urine, hemoglobin presence 10/UL Abnormal NEGATIVE [facility] Comment on above: Performed By: #### 6 9405-9, 90065-0f2, 03458-8 ####[facility], [address] [place], [place]. Urine, ketones presence 5MG/DL Abnormal NEGATIVE [facility] Comment on above: Performed By: #### 6 9405-9, 56315-1z8, 46151-3 ####[facility], [address] [place], [place]. Urine, leukocyte esterase presence 25/UL Abnormal NEGATIVE [facility] Comment on above: Performed By: #### 6 9405-9, 50606-7a1, 27941-5 ####[facility], [address] [place], [place]. Urine, pH 5.0 [pH] Normal 4.5-8.0 [facility] Comment on above: Performed By: #### 6 9405-9, 95681-8q0, 25441-7 ####[facility], [address] [place], [place]. Urine, protein 30 mg/dL Abnormal NEGATIVE [facility] Comment on above: Performed By: #### 6 9405-9, 23342-7x3, 15894-1 ####[facility], [address] [place], [place]. Urine, specific gravity 1.032 High 1.002-1.030 [facility] Comment on above: Performed By: #### 6 9405-9, 99186-5v3, 36354-6 ####[facility], [address] [place], [place]. Urobilinogen Urine NORMAL Normal NORMAL [facility] Comment on above: Performed By: #### 6 9405-9, 08583-0t4, 78617-9 ####[facility], [address] [place], [place]. ED Physician Noteson 018 ED Physician Notes Chief Complaint Abdominal pain/Vaginal bleedED Assigned Provider/Time Time Seen: [place] El / 09/27/2017 20:20History of Present Illness I have reviewed the nurse's note. I introduced myself as the Physician Lace Stripper and informed the patient of the supervising physician who is available upon request, Dr. Hurtado Patient is a 22 years old female with a known history of diabetes, mood disorder presenting to the ED for vaginal bleeding that started today. Patient has a Mirena IUD placed back in April of last year. Patient was here just on 09/18/2017, and was seen by me. Patient at the time had abdominal pain. Patient ultrasound was negative for any abnormal findings. However patient states the pain has increased, and the bleeding that started today is wanting her. 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 Patient is to look for a new one here in [place]. Patient denies any nausea or vomiting. No diarrhea. No urinary related symptoms. 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 EYES: PERRL, no scleral icterus. NOSE: The nose is normal in appearance without rhinorrhea RESP: Normal chest excursion with respiration; breath sounds clear and equal bilaterally; no wheezes, rhonchi, or rales CARD: Regular rhythm, without murmurs, rub or gallop ABD: Soft, nondistended, slight tenderness with palpation to the lower abdominal region. Patient has no rebound, no guarding, no rigidity SKIN: Normal for age and race; warm and dry; no apparent lesions : Not assessed NEUROLOGIC: Awake, alert, answers questions appropriately without slurred speech, no focal deficits DIFFERENTIAL DIAGNOSIS: [Dysfunctional uterine bleeding, ovarian torsion, tubo-ovarian cyst, normal menses, IUD reaction ]Physical Exam Vitals and Measurements T: 98.2 F HR: 104 RR: 16 BP: 143/96 SpO2: 99% HT: 160.90 cm WT: 96.5 kg BMI: 37.3 Medical Decision Making Patient is a 22 years old female with a known history of diabetes, mood disorder presenting to the ED for vaginal bleeding that started today. Patient otherwise appeared to be stable and in no apparent distress. Patient physical exam was rather benign with mild discomfort in the lower abdomen. Patient was seen approximately 9 days ago with similar complaints and had a negative ultrasound, and blood work were all normal. Patient now has vaginal bleeding with increase in abdominal pain, and the ultrasound will be repeated. Patient ultrasound read as normal pelvic without any adnexal mass. No ovarian torsion. IUD in the uterus. Patient urine show no evidence of UTI. Patient does have 2+ blood. Negative test. Patient will be advised to follow-up with [facility] for further evaluation. No need for any intervention in the ED at this time. Patient is bleeding very next mildly, and I see no need for repeat chemistry/CBC.Assessmen t/Plan Dysfunctional uterine bleeding Pelvic pain Problem List/Past Medical History Ongoing Diabetes Mood disorder Historical No qualifying dataProcedure/Surgical History H/O: IUD usage, History of cholecystectomy.Medicat ions Home Abilify, PO, Daily Alogliptin, PO, Daily GlipiZIDE, PO, Daily HydrOXYzine pamoate, PO, QID lisinopril 10 mg oral tablet, 10 mg= 1 Tab, PO, Daily MetFORMIN, PO SEROquel, PO ED Administered Medications Prescriptions No active PrescriptionsAllergies NKASocial History Tobacco Smoking Status: Current some day smoker Type of Smoker: Light smokerLab Results POINT OF CARE TESTING test poct -clinic: Negative urine color poct -clinic: Straw (Normal) urine clarity poct -clinic: Turbid glucose urine poct: 1000 mg/dL bilirubin urine poct: Negative (Normal) ketones urine poct: Trace specific gravity urine poct: 1.020 blood urine poct: 2+ moderate ph urine poct: 5 protein urine poct: Negative (Normal) urobilinogen urine poct: 0 nitrite urine poct: Negative (Normal) leukocytes urine poct: Negative (Normal) test poct: Negative ORDERS PLACED: Laboratory POC Urine Test (CO) Raphael Cabezas MD September 27, 2017 19:35 Completed POC Urinalysis Manual (CO) Raphael Cabezas MD September 27, 2017 19:35 Completed Xray NV Duplex Abd/Pelvis Retroper Complete [place] September 27, 2017 21:[address] / MRI / Ultrasound Ultrasound Pelvis Non-OB Complete [place] September 27, 2017 20:40 Completed US Transvaginal [place] September 27, 2017 21:34 CompletedDiagnostic Results IMAGING RESULTS: Emergency Physician Interpretation: Radiologist US Interpretation: Interpretation IMPRESSION: Normal pelvic ultrasound. No adnexal mass. No ovarian torsion. IUD in the uterus. ORDERS PLACED: Laboratory POC Urine Test (CO) Raphael Cabezas MD September 27, 2017 19:35 Completed POC Urinalysis Manual (CO) Raphael Cabezas MD September 27, 2017 19:35 Completed Xray NV Duplex Abd/Pelvis Retroper Complete [place] September 27, 2017 21:[address] / MRI / Ultrasound Ultrasound Pelvis Non-OB Complete [place] September 27, 2017 20:40 Completed US Transvaginal [place] September 27, 2017 21:34 CompletedDone Normal [facility] ED Physician Notes PDF Normal [facility] Depart Summaryon 09-28-2017 Depart Summary EMERGENCY DEPARTMENT DISCHARGE SUMMARYPATIENT NAME:MELISSA BYRNE MRN: [id number]: 22 Years SEX: Female PHONE:[phone]: 09/27/2017 7:06 PM : 1995 ATTENDING PHYSICIAN:Raphael Cabezas MD PCP: Verona Hilliard MD CHIEF COMPLAINT: Abdominal pain/Vaginal bleed Allergies NKAProblems Active Mood disorder Diabetes DISCHARGE DIAGNOSIS: Dysfunctional uterine bleeding; Pelvic pain DISCHARGE INSTRUCTIONS: Dysfunctional Uterine Bleeding; Pelvic Pain, Female ED PHYSICIAN DOCUMENTATION: History of Present IllnessI have reviewed the nurse's note. ? I introduced myself as the Physician Lace Stripper and informed the patient of the supervising physician who is available upon request, ? Patient is a 22 years old female?with a known?history of diabetes, mood?disorder?presentin g to the ED for vaginal bleeding that started today. Patient has?a Mirena?IUD?placed back in?April of last year.?Patient was here just on?09/18/2017, and was seen by me. Patient at the time had abdominal pain. Patient ultrasound was negative for any abnormal findings. However patient states the pain has increased, and the bleeding that started today?is wanting her. 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 Patient?is to look for a new one here in?[place]. Patient?denies any nausea or vomiting. No diarrhea. No urinary related symptoms.?? Ectopic risk factorsHistory of PIDIUD in placeTubal ligationPrevious ectopic pregnancyUse of infertility drugsSurgery-lower abdomen-GYNSmokingFrequ ent douchingMultiple sexual partners? REVIEW OF SYSTEMSConstitutional: No feverVision: No blurred visionENT: No rhinorrheaRespiratory: No coughAllergic: No allergiesGU: No blood in urineGI: No blood in stoolHematologic: No bruisingDermatologic: No skin rashMusculoskeletal: No pain in the extremitiesNeuro: No numbness of the extremities? PHYSICAL EXAMINATIONCONSTITUTION AL: Alert and oriented X3, well-nourished, well appearing, in no apparent distressHEAD: Normocephalic; atraumatic.EYES: PERRL, no scleral icterus.NOSE: The nose is normal in appearance without rhinorrheaRESP: Normal chest excursion with respiration; breath sounds clear and equal bilaterally; no wheezes, rhonchi, or ralesCARD: Regular rhythm, without murmurs, rub or gallopABD:?Soft, nondistended, slight tenderness with palpation to the?lower abdominal region. Patient has no rebound, no guarding, no rigiditySKIN: Normal for age and race; warm and dry; no apparent lesionsGU:?Not assessedNEUROLOGIC: Awake, alert, answers questions appropriately without slurred speech, no focal deficits??? DIFFERENTIAL DIAGNOSIS: [Dysfunctional uterine bleeding,?ovarian torsion,?tubo-ovarian cyst,?normal menses,?IUD reaction ]?? Medical Decision MakingPatient is a 22 years old female?with a known?history of diabetes, mood?disorder?presentin g to the ED for vaginal bleeding that started today.?Patient otherwise appeared to be stable and in no apparent distress. Patient physical exam was rather benign with?mild discomfort in the lower abdomen. Patient was seen approximately 9 days ago with similar complaints and had a negative ultrasound, and blood work were all normal. Patient now has vaginal bleeding with increase in abdominal pain, and the ultrasound will be repeated.?Patient ultrasound read as normal pelvic?without any adnexal mass. No ovarian torsion. IUD in the uterus.?Patient urine show no evidence of UTI. Patient does have 2+?blood. Negative test. Patient will be advised to follow-up with [facility] clinic for further evaluation.?No need for any intervention in the ED at this time.?Patient is bleeding very next?mildly, and I see no need for repeat?chemistry/CBC.?? DISPOSITION:Time of Departure From ER 09/27/2017 23:44 Discharge/Transfer From ER Home 01 MEDICATION LISTS: CURRENT MEDICATION LISTalogliptin (Alogliptin) By Mouth once a day.ARIPiprazole (Abilify) By Mouth once a day.GlipiZIDE By Mouth once a day.HydrOXYzine (HydrOXYzine pamoate) By Mouth 4 Times/Day.lisinopril (lisinopril 10 mg oral tablet) 1 Tab(s) By Mouth once a day.MetFORMIN By Mouth.naproxen (Naprosyn 500 mg oral tablet) 1 Tab(s) By Mouth Twice a day as needed for pain for 10 Days. Refills: 0.QUEtiapine (SEROquel) By Mouth. MEDICATIONS GIVEN DURING MEDICAL VISITNone LAB RESULTS:LABORATORY TESTS: Abnormal Lab Result(s): Date Order Results 09/27/2017 19:38 Specific [place] Urine POCT N 1.020 09/27/2017 19:38 pH Urine POCT N 5 09/27/2017 19:38 Urobilinogen Urine POCT N 0 mg/dL RADIOLOGY:RADIOLOGY RESULT(S) (Please contact Medical Records office for further information): 09/27/2017 21:35 US Pelvis Non-OB Complete EXAMINATION TYPE: US Pelvis Non-OB Complete, US Transvaginal, NV Duplex Abd/Pelvis Retroper Complete DATE OF EXAM ORDERED: 09/27/2017 10:12 PMHISTORY: Left pelvic pain. IUD on oral contraceptives. Evaluate for torsionCOMPARISON: Pelvic ultrasound September 18, 2017 FINDINGS: Transabdominal transvaginal sonographic images were acquired of the pelvis. Grayscale color Doppler and spectral waveform analysis was performed of the ovaries.Uterus is normal in size and contour and measures approximately 8.5 x 4.4 x 5. 3 cm. Myometrium is homogeneous. No uterine fibroids. IUD noted within the uterine cavity. Endometrium is 1 cm in thickness. No fluid in the endometrial cavity.No solid or cystic adnexal mass. Normal arterial and venous waveforms are identified in both ovaries without evidence of ovarian torsion. Right ovary measures 2.3 x 2.0 x 1.3 cm. Left ovary measures 3.0 x 2.1 x 2.2 cm. No free fluid in the pelvis.IMPRESSION: Normal pelvic ultrasound. No adnexal mass. No ovarian torsion.IUD in the uterus.Ang Rankin thanks you for the opportunity to care for your patient. Workstation ID: [id number] 09/27/2017 21:35 US Transvaginal EXAMINATION TYPE: US Pelvis Non-OB Complete, US Transvaginal, NV Duplex Abd/Pelvis Retroper Complete DATE OF EXAM ORDERED: 09/27/2017 10:12 PMHISTORY: Left pelvic pain. IUD on oral contraceptives. Evaluate for torsionCOMPARISON: Pelvic ultrasound September 18, 2017 FINDINGS: Transabdominal transvaginal sonographic images were acquired of the pelvis. Grayscale color Doppler and spectral waveform analysis was performed of the ovaries.Uterus is normal in size and contour and measures approximately 8.5 x 4.4 x 5. 3 cm. Myometrium is homogeneous. No uterine fibroids. IUD noted within the uterine cavity. Endometrium is 1 cm in thickness. No fluid in the endometrial cavity.No solid or cystic adnexal mass. Normal arterial and venous waveforms are identified in both ovaries without evidence of ovarian torsion. Right ovary measures 2.3 x 2.0 x 1.3 cm. Left ovary measures 3.0 x 2.1 x 2.2 cm. No free fluid in the pelvis.IMPRESSION: Normal pelvic ultrasound. No adnexal mass. No ovarian torsion.IUD in the uterus.Ang Rankin thanks you for the opportunity to care for your patient. Workstation ID: [id number] 09/27/2017 21:35 NV Duplex Abd/Pelvis Retroper Complete EXAMINATION TYPE: US Pelvis Non-OB Complete, US Transvaginal, NV Duplex Abd/Pelvis Retroper Complete DATE OF EXAM ORDERED: 09/27/2017 10:12 PMHISTORY: Left pelvic pain. IUD on oral contraceptives. Evaluate for torsionCOMPARISON: Pelvic ultrasound September 18, 2017 FINDINGS: Transabdominal transvaginal sonographic images were acquired of the pelvis. Grayscale color Doppler and spectral waveform analysis was performed of the ovaries.Uterus is normal in size and contour and measures approximately 8.5 x 4.4 x 5. 3 cm. Myometrium is homogeneous. No uterine fibroids. IUD noted within the uterine cavity. Endometrium is 1 cm in thickness. No fluid in the endometrial cavity.No solid or cystic adnexal mass. Normal arterial and venous waveforms are identified in both ovaries without evidence of ovarian torsion. Right ovary measures 2.3 x 2.0 x 1.3 cm. Left ovary measures 3.0 x 2.1 x 2.2 cm. No free fluid in the pelvis.IMPRESSION: Normal pelvic ultrasound. No adnexal mass. No ovarian torsion.IUD in the uterus.[place] [employer] thanks you for the opportunity to care for your patient. Workstation ID: [id number] FOLLOW UP:FOLLOW-UP APPOINTMENTS: Provider: Specialty: Address: Date: Verona Hilliard MD [facility] [address] [phone] (1) Follow-up as needed Provider: Specialty: Address: Date: [facility] ([facility]) [address] [place] [address] (5) Follow-up as needed Comment: Follow-up with [facility] also be further evaluated. Call Friday and make an appointment. Normal [facility] ED Pat Eduon 09-28-2017 ED Pat Edu [place] [address] [facility] Department Discharge Instructions MELISSA BYRNE , Please provide this information to your Primary Care/Specialist Name : MELISSA BYRNE Current Date : 09/27/2017 23:44:47DOB : 1995 12:00 PM Primary Care Physician: Verona Hilliard MD Diagnosis : Dysfunctional uterine bleeding; Pelvic pain Follow-Up Instructions:MELISSA BYRNE has been given these follow-up instructions: FOLLOW-UP APPOINTMENTS: Provider: Specialty: Address: Date: Verona Hilliard MD Family Practice [address] [place] [address] [phone] (1) Follow-up as needed Provider: Specialty: Address: Date: [facility] ([facility]) [address] [place] [address] (0) Follow-up as needed Comment: Follow-up with [facility] also be further evaluated. Call Friday and make an appointment. Laboratory Orders: Name: Status: Urine Test POCT (CO) Completed Urinalysis Manual POCT (CO) Completed Radiology Orders: Name: Status: US Pelvis Non-OB Complete Completed US Transvaginal Completed NV Duplex Abd/Pelvis Retroper Complete Completed Diagnostic Tests: None Ordered Procedure(s) and Patient Education(s) : Dysfunctional Uterine Bleeding; Pelvic Pain, Female EMERGENCY SERVICES MEDICATION LISTLista de Medicaciones de los Servicios de Emergencia Name MELISSA BYRNE MRN (COL)-[id number] PLEASE READ THE FOLLOWING REGARDING YOUR MEDICATIONS Based on the information available during your visit we have given you the medication instructions below. Continue taking medications you took prior to your visit unless you have been told to change. Please share this information with your own doctor. Carry a list of your medications with you in case of an emergency. Update it when medications are stopped, doses are changed, or new medications (including [id number]-pyr-[id number] products) are added. If you have any questions, check with your doctor. Por la informaci??n disponible ai martinez visita, las instrucciones de medicaci??n aparecen debajo. Favor de continuar tomando las medicaciones Ud. bernadette?? antes de martinez visita por lo menos que hay cambios. Favor de compartir esta informaci??n con martinez medico. Lleva sandra lista de medicaciones consigo por nirali de emergenc??a. Actualiza la lista cuando Ud. neeraj de richard las medicaciones, si cambian las dosis, o si hay nuevas medicaciones a??adidas (incluyendo medicaciones vendidas sin prescripci??n). Favor de preguntar a martinez medico por cualquier kristen. THESE ARE THE MEDICATIONS YOU SHOULD BE TAKINGalogliptin (Alogliptin) By Mouth once a day.ARIPiprazole (Abilify) By Mouth once a day.GlipiZIDE By Mouth once a day.HydrOXYzine (HydrOXYzine pamoate) By Mouth 4 Times/Day.lisinopril (lisinopril 10 mg oral tablet) 1 Tab(s) By Mouth once a day.MetFORMIN By Mouth.naproxen (Naprosyn 500 mg oral tablet) 1 Tab(s) By Mouth Twice a day as needed for pain for 10 Days. Refills: 0.QUEtiapine (SEROquel) By Mouth.MEDICATIONS GIVEN DURING MEDICAL VISITNone NON-MEDICATION PRESCRIPTION SCHEDULING PHONE NUMBER: MEDICATION CHANGE DETAILS (Not your Final Home Medication List) During the course of your visit, your home medication list was updated with the most current information. The details of those changes are shown below: NEW MEDICATIONSNoneUPDATED MEDICATIONSNoneUNCHANGE D MEDICATIONSOther Medicationsalogliptin (Alogliptin) By Mouth once a day.Comment ARIPiprazole (Abilify) By Mouth once a day.Comment GlipiZIDE By Mouth once a day.Comment HydrOXYzine (HydrOXYzine pamoate) By Mouth 4 Times/Day.Comment lisinopril (lisinopril 10 mg oral tablet) 1 Tab(s) By Mouth once a day.Comment MetFORMIN By Mouth.Comment naproxen (Naprosyn 500 mg oral tablet) 1 Tab(s) By Mouth Twice a day as needed for pain for 10 Days. Refills: 0.Comment ____QUEtiapine (SEROquel) By Mouth.Comment STOP TAKING THESE MEDICATIONSNoneDO NOT TAKE UNTIL YOU TALK TO YOUR DOCTORNone [place] [id number] Emergency Department Discharge Instructions Name: MELISSA BYRNE Current Date: 09/27/2017 23:44:47 : 1995 12:00 PM Primary Physician: Verona Hilliard MD We would like to thank you for choosing [facility] for your emergency medical needs. We examined and treated you today on an emergency basis only. This was not a substitute for, or an effort to provide, complete medical care. In most cases, you must let your doctor (or the doctor we referred you to) check you again. Tell your doctor about any new or lasting problems. We cannot recognize and treat all injuries or illnesses in one emergency department visit. After you leave, you should follow the directions attached. Instructions for obtaining X-rays:When following up with your doctor, you may need to take copies of your x-rays that were done in the Emergency Department. If you didn't receive these upon your discharge from the emergency department, please call . When the final report becomes available and it is reviewed, the emergency department will attempt to contact you if there are any changes in your instructions. It is important that you leave accurate information with us on how to contact you. IF you cannot be contacted, YOU must contact the follow-up doctor that you were assigned to make sure that the final official x-ray report does not require a change in your treatment. Instructions for obtaining medical records:If you need a copy of your medical records for follow-up, please contact the Health Information Management Department at . Their office hours are 8 AM- 4:30 PM, Friday through Friday. Please note: Results are not immediately available. Please allow a minimum of 36 hours for documentation and results.If you were prescribed an antibiotic:Antibiotics are life-saving drugs and they need to be used properly. Your team might change your antibiotic because test results show that a different antibiotic would be better to treat your infection. Like all medications, antibiotics have side effects. Some can be serious. This includes the risk of getting an antibiotic-resistant infection later, which may be difficult to treat. Remember to take your antibiotics as prescribed. If you have any questions please talk to your healthcare team.Seatbelts:There is no doubt that seatbelts save lives. Every day, people without seatbelts have more serious injuries. Have everyone buckle up, using age appropriate seatbelts or car seats, to reduce their risk of injury.Smoking:If you do smoke, we encourage you to stop. Smoking affects all aspects of your health and the health of those around you. Call the [place] [employer] at 4-498-RPWY-USA or the [place] [employer] at 0-162-FGH-7714 for more information.High blood pressure: Your screening blood pressure today was 118 mm Hg / . Hypertension (high blood pressure) is blood pressure over 120/80. People with hypertension should contact their primary care provider within 30 days to follow up. Check your patient portal for additional blood pressure information.Immunizatio ns:Immunization is a way to protect against deadly infections. Discuss this with your child's business liaison manager, or Public Health Department. Your family practice doctor can determine if you need pneumonia or flu vaccine. The [facility] Department can be reached at .Domestic Violence:If you are a victim of domestic violence (physical, verbal, or emotional), you are not alone. Discuss this with your physician or a friend and call Choices Hotline ( for assistance and support.You are the most important factor in your recovery. Follow the provided instructions carefully. Take your medications as prescribed. Most importantly, see a doctor again as discussed. If you have problems that we have not discussed, call or visit your doctor right away. If you do not have a primary care physician, we have provided one for you to follow up with. When you call for an appointment, please inform them that you were seen in the emergency department and the date of your visit. If you are unable to reach your doctor and are still experiencing problems, return to the emergency department. For assistance finding a primary care physician, call the Physician Referral Line at .Suicide Hotline:Your mental and emotional well-being is important. If you are in a mental health crisis or are having thoughts of suicide, please call the nationwide suicide hotline, anytime day or night, at 5-487-214-HLIJ. Pharmacy Information:Below is a list of 24 hour pharmacies that we are aware of. We suggest that you call the specific pharmacy for their hours before traveling to a location. Hours may vary on holidays. [facility] [address] [address] [phone] [address] [phone] [address] [phone] [address] [phone] [address] [phone] [address] [phone] [place] [address] [phone] Take all medications as directed. If you need prescription assistance, contact the following agencies:?? Partnership for Prescription Assistance at or www.pparx.org?? [facility] at or www.AIMbestrx.org?? www.[employer] is a site with many valuable coupons Patient Education Materials MELISSA BYRNE has been given the following patient education materials: Obstetrics and GynecologyDysfunctional Uterine BleedingNormally, menstrual periods begin between ages 11 to 17 in young women. A normal menstrual cycle/period may begin every 23 days up to 35 days and lasts from 1 to 7 days. Around 12 to 14 days before your menstrual period starts, ovulation (ovary produces an egg) occurs. When counting the time between menstrual periods, count from the first day of bleeding of the previous period to the first day of bleeding of the next period. Dysfunctional (abnormal) uterine bleeding is bleeding that is different from a normal menstrual period. Your periods may come earlier or later than usual. They may be customer service professional, have blood clots or be heavier. You may have bleeding between periods, or you may skip one period or more. You may have bleeding after sexual intercourse, bleeding after menopause, or no menstrual period.CAUSES???Pregnan cy (normal, miscarriage, tubal).???IUDs (intrauterine device, control).??? control pills.???Hormone treatment.???Menopause. ???Infection of the cervix.???Blood clotting problems.???Infection of the inside lining of the uterus.???Endometriosis , inside lining of the uterus growing in the pelvis and other female organs.???Adhesions (scar tissue) inside the uterus. ???Obesity or severe weight loss. ???Uterine polyps inside the uterus.???Cancer of the vagina, cervix, or uterus.???Ovarian cysts or polycystic ovary syndrome.???Medical problems (diabetes, thyroid disease).???Uterine fibroids (noncancerous tumor).???Problems with your female hormones.???Endometrial hyperplasia, very thick lining and enlarged cells inside of the uterus.???Medicines that interfere with ovulation.???Radiation to the pelvis or abdomen.???Chemotherapy .DIAGNOSIS???Your doctor will discuss the history of your menstrual periods, medicines you are taking, changes in your weight, stress in your life, and any medical problems you may have.???Your doctor will do a physical and pelvic examination.???Your doctor may want to perform certain tests to make a diagnosis, such as:???Pap test.???Blood tests.???Cultures for infection.???CT scan.???Ultrasound.???H ysteroscopy.???Laparosc opy.???MRI.???Hysterosa lpingography.???D and C.???Endometrial biopsy.TREATMENTTreatme nt will depend on the cause of the dysfunctional uterine bleeding (DUB). Treatment may include:???Observing your menstrual periods for a couple of months.???Prescribing medicines for medical problems, including:???Antibiotic s. ???Hormones.??? control pills. ???Removing an IUD (intrauterine device, control).???Surgery:??? D and C (scrape and remove tissue from inside the uterus).???Laparoscopy (examine inside the abdomen with a lighted tube).???Uterine ablation (destroy lining of the uterus with electrical current, laser, heat, or freezing).???Hysterosco py (examine cervix and uterus with a lighted tube).???Hysterectomy (remove the uterus).HOME CARE INSTRUCTIONS???If medicines were prescribed, take exactly as directed. Do not change or switch medicines without consulting your caregiver.???alf heavy bleeding may result in iron deficiency. Your caregiver may have prescribed iron pills. They help replace the iron that your body lost from heavy bleeding. Take exactly as directed.???Do not take aspirin or medicines that contain aspirin one week before or during your menstrual period. Aspirin may make the bleeding worse.???If you need to change your sanitary pad or tampon more than once every 2 hours, stay in bed with your feet elevated and a cold pack on your lower abdomen. Rest as much as possible, until the bleeding stops or slows down.???Eat well-balanced meals. Eat foods high in iron. Examples are:???Leafy green vegetables.???Whole-gra in breads and cereals. ???Eggs. ???Meat.???Liver. ???Do not try to lose weight until the abnormal bleeding has stopped and your blood iron level is back to normal. Do not lift more than ten pounds or do strenuous activities when you are bleeding.???For a couple of months, make note on your calendar, marking the start and ending of your period, and the type of bleeding (light, medium, heavy, spotting, clots or missed periods). This is for your caregiver to better evaluate your problem.SEEK MEDICAL CARE IF:???You develop nausea (feeling sick to your stomach) and vomiting, dizziness, or diarrhea while you are taking your medicine.???You are getting lightheaded or weak.???You have any problems that may be related to the medicine you are taking.???You develop pain with your DUB.???You want to remove your IUD.???You want to stop or change your control pills or hormones.???You have any type of abnormal bleeding mentioned above.???You are over 16 years old and have not had a menstrual period yet.???You are 55 years old and you are still having menstrual periods.???You have any of the symptoms mentioned above.???You develop a rash.SEEK IMMEDIATE MEDICAL CARE IF:???An oral temperature above 102? F (38.9? C) develops.???You develop chills.???You are changing your sanitary pad or tampon more than once an hour.???You develop abdominal pain.???You pass out or faint.This information is not intended to replace advice given to you by your health care provider. Make sure you discuss any questions you have with your health care provider.Document Released: 05/23/2001 Document Revised: 08/17/2012 Document Reviewed: 08/21/2015[employer] Interactive Patient Education ?2016 [employer].Pelvic Pain, FemaleFemale pelvic pain can be caused by many different things and start from a variety of places. Pelvic pain refers to pain that is located in the lower half of the abdomen and between your hips. The pain may occur over a short period of time (acute) or may be reoccurring (chronic). The cause of pelvic pain may be related to disorders affecting the female reproductive organs (gynecologic), but it may also be related to the bladder, kidney stones, an intestinal complication, or muscle or skeletal problems. Getting help right away for pelvic pain is important, especially if there has been severe, sharp, or a sudden onset of unusual pain. It is also important to get help right away because some types of pelvic pain can be life threatening. CAUSESBelow are only some of the causes of pelvic pain. The causes of pelvic pain can be in one of several categories. ???Gynecologic. ???Pelvic inflammatory disease.???Sexually transmitted infection.???Ovarian cyst or a twisted ovarian ligament (ovarian torsion).???Uterine lining that grows outside the uterus (endometriosis).???Fibr oids, cysts, or tumors.???Ovulation. ???.???Pregnan cy that occurs outside the uterus (ectopic ).???Miscarria ge. ???Labor.???Abruption of the placenta or ruptured uterus.???Infection.??? Uterine infection (endometritis).???Bladd er infection.???Diverticul itis.???Miscarriage related to a uterine infection (septic ).???Bladder.?? ?Inflammation of the bladder (cystitis).???Kidney stone(s).???Gastrointes tinal.???Constipation.? ??Diverticulitis.???Danni rologic.???Trauma.???Fe eling pelvic pain because of mental or emotional causes (psychosomatic). ???Cancers of the bowel or pelvis. EVALUATIONYour caregiver will want to take a careful history of your concerns. This includes recent changes in your health, a careful gynecologic history of your periods (menses), and a sexual history. Obtaining your family history and medical history is also important. Your caregiver may suggest a pelvic exam. A pelvic exam will help identify the location and severity of the pain. It also helps in the evaluation of which organ system may be involved. In order to identify the cause of the pelvic pain and be properly treated, your caregiver may order tests. These tests may include: ???A test.???Pelvic ultrasonography.???An X-ray exam of the abdomen.???A urinalysis or evaluation of vaginal discharge.???Blood tests. HOME CARE INSTRUCTIONS???Only take [id number] or prescription medicines for pain, discomfort, or fever as directed by your caregiver. ?Rest as directed by your caregiver. ?Eat a balanced diet. ?Drink enough fluids to make your urine clear or pale yellow, or as directed. ?Avoid sexual intercourse if it causes pain. ?Apply warm or cold compresses to the lower abdomen depending on which one helps the pain. ?Avoid stressful situations. ?Keep a journal of your pelvic pain. Write down when it started, where the pain is located, and if there are things that seem to be associated with the pain, such as food or your menstrual cycle.???Follow up with your caregiver as directed. ? SEEK MEDICAL CARE IF:???Your medicine does not help your pain.???You have abnormal vaginal discharge. SEEK IMMEDIATE MEDICAL CARE IF:???You have heavy bleeding from the vagina. ?Your pelvic pain increases. ?You feel light-headed or faint. ?You have chills. ?You have pain with urination or blood in your urine. ?You have uncontrolled diarrhea or vomiting. ?You have a fever or persistent symptoms for more than 3 days.???You have a fever and your symptoms suddenly get worse. ?You are being physically or sexually abused. ? MAKE SURE YOU:???Understand these instructions.???Will watch your condition.???Will get help if you are not doing well or get worse.This information is not intended to replace advice given to you by your health care provider. Make sure you discuss any questions you have with your health care provider.Document Released: 04/22/2005 Document Revised: 10/10/2015 Document Reviewed: 09/14/2012[employer] Interactive Patient Education ?2016 [employer]><><><><><><><><>< ><><><><><><><><><><><> <><><><> Patient Visit Summary Signature MELISSA BYRNE has been given the following list of patient education materials, prescriptions and follow-up instructions: CHAVEZ Cox A[place]ANDRIA JUSTINE, have received the above patient education materials/instructions and have verbalized understanding: Date Time Patien t Signature Date Time Provid er Signature Normal [facility] NV Duplex Abd/Pelvis Retrope r Completeon 09-28-2017 NV Duplex Abd/Pelvis Retroper Complete EXAMINATION TYPE: US Pelvis Non-OB Complete, US Transvaginal, NV Duplex Abd/Pelvis Retroper Complete DATE OF EXAM ORDERED: 09/27/2017 10:12 PMHISTORY: Left pelvic pain. IUD on oral contraceptives. Evaluate for torsionCOMPARISON: Pelvic ultrasound September 18, 2017 FINDINGS: Transabdominal transvaginal sonographic images were acquired of the pelvis. Grayscale color Doppler and spectral waveform analysis was performed of the ovaries.Uterus is normal in size and contour and measures approximately 8.5 x 4.4 x 5. 3 cm. Myometrium is homogeneous. No uterine fibroids. IUD noted within the uterine cavity. Endometrium is 1 cm in thickness. No fluid in the endometrial cavity.No solid or cystic adnexal mass. Normal arterial and venous waveforms are identified in both ovaries without evidence of ovarian torsion. Right ovary measures 2.3 x 2.0 x 1.3 cm. Left ovary measures 3.0 x 2.1 x 2.2 cm. No free fluid in the pelvis.IMPRESSION: Normal pelvic ultrasound. No adnexal mass. No ovarian torsion.IUD in the uterus.[facility] [employer] thanks you for the opportunity to care for your patient. Workstation ID: [id number] - [id number] FINAL REPORT Dictated By: Hiro Newberry MD 09/27/2017 22:18Assigned Physician: Hiro Newberry MD and Electronically Signed By: Hiro Newberry MD 09/27/2017 22:21Transcribed by: TAMI 09/27/2017 22:18Technologist: SIMI [facility] US Pelvis Non-OB Completeon 09-28-2017 US Pelvis Non-OB Complete EXAMINATION TYPE: US Pelvis Non-OB Complete, US Transvaginal, NV Duplex Abd/Pelvis Retroper Complete DATE OF EXAM ORDERED: 09/27/2017 10:12 PMHISTORY: Left pelvic pain. IUD on oral contraceptives. Evaluate for torsionCOMPARISON: Pelvic ultrasound September 18, 2017 FINDINGS: Transabdominal transvaginal sonographic images were acquired of the pelvis. Grayscale color Doppler and spectral waveform analysis was performed of the ovaries.Uterus is normal in size and contour and measures approximately 8.5 x 4.4 x 5. 3 cm. Myometrium is homogeneous. No uterine fibroids. IUD noted within the uterine cavity. Endometrium is 1 cm in thickness. No fluid in the endometrial cavity.No solid or cystic adnexal mass. Normal arterial and venous waveforms are identified in both ovaries without evidence of ovarian torsion. Right ovary measures 2.3 x 2.0 x 1.3 cm. Left ovary measures 3.0 x 2.1 x 2.2 cm. No free fluid in the pelvis.IMPRESSION: Normal pelvic ultrasound. No adnexal mass. No ovarian torsion.IUD in the uterus.[facility] [employer] thanks you for the opportunity to care for your patient. Workstation ID: [id number] - [id number] FINAL REPORT Dictated By: Hiro Newberry MD 09/27/2017 22:18Assigned Physician: Hiro Newberry MD and Electronically Signed By: Hiro Newberry MD 09/27/2017 22:21Transcribed by: TAMI 09/27/2017 22:18Technologist: SIMI [facility] US Transvaginalon 09-28-2017 US Transvaginal EXAMINATION TYPE: US Pelvis Non-OB Complete, US Transvaginal, NV Duplex Abd/Pelvis Retroper Complete DATE OF EXAM ORDERED: 09/27/2017 10:12 PMHISTORY: Left pelvic pain. IUD on oral contraceptives. Evaluate for torsionCOMPARISON: Pelvic ultrasound September 18, 2017 FINDINGS: Transabdominal transvaginal sonographic images were acquired of the pelvis. Grayscale color Doppler and spectral waveform analysis was performed of the ovaries.Uterus is normal in size and contour and measures approximately 8.5 x 4.4 x 5. 3 cm. Myometrium is homogeneous. No uterine fibroids. IUD noted within the uterine cavity. Endometrium is 1 cm in thickness. No fluid in the endometrial cavity.No solid or cystic adnexal mass. Normal arterial and venous waveforms are identified in both ovaries without evidence of ovarian torsion. Right ovary measures 2.3 x 2.0 x 1.3 cm. Left ovary measures 3.0 x 2.1 x 2.2 cm. No free fluid in the pelvis.IMPRESSION: Normal pelvic ultrasound. No adnexal mass. No ovarian torsion.IUD in the uterus.[facility] [employer] thanks you for the opportunity to care for your patient. Workstation ID: [id number] - [id number] FINAL REPORT Dictated By: Hiro Newberry MD 09/27/2017 22:18Assigned Physician: Hiro Newberry MD and Electronically Signed By: Hiro Newberry MD 09/27/2017 22:21Transcribed by: TAMI 09/27/2017 22:18Technologist: MDS Normal [facility] Basic Metabolic Panelon 09-07 Anion gap 11.0 mmol/L Normal 6.0-18.0 [facility] Comment on above: Result Comment: DEEDEE MELO NOTE:The calculated Anion Gap(AGAP) does not include Potassium. Performed By: #### 6 9405-9, 98001-3w5, 66442-5 ####[facility], [address], [place]. Calcium 9.9 mg/dL Normal 8.9-10.3 [facility] Comment on above: Performed By: #### 6 9405-9, 33670-4s8, 96177-8 ####[facility], [address] [place], [place]. Chloride 101 mmol/L Normal 98-107 [facility] Comment on above: Performed By: #### 6 9405-9, 96891-0p7, 52699-0 ####[facility], [address], [place]. CO2 22 mmol/L Normal 22-32 [facility] Comment on above: Performed By: #### 6 9405-9, 73035-9f1, 16111-0 ####[facility], [address], [place]. Creatinine 0.56 mg/dL Low 0.66-1.30 [facility] Comment on above: Performed By: #### 6 9405-9, 49137-0b3, 59619-0 ####[facility], [address] [place], [place]. Glucose mass conc 252 mg/dL High 70-110 [facility] Comment on above: Performed By: #### 6 9405-9, 02581-7e9, 02431-1 ####[facility], [address] [place], [place]. Potassium molar conc 3.9 mmol/L Normal 3.6-5.1 [place] Comment on above: Performed By: #### 6 9405-9, 46217-3m8, 49396-1 ####[facility], [address] [facility] Sodium 134 mmol/L Low 136-145 [facility] Comment on above: Performed By: #### 6 9405-9, 29649-5a9, 32129-8 ####[facility], [facility] [place], [place]. Urea nitrogen 12 mg/dL Normal 8-20 [facility] Comment on above: Performed By: #### 6 9405-9, 53334-0d7, 37767-1 ####[facility], [address] [place], [place] [address]. CBCon 09-18-2017 Erythrocyte distribution width Auto Ratio (RBC) 14.3 % Normal 11.0-14.8 [facility] Comment on above: Performed By: #### 2 4317-0 ####[facility], [facility] [address] [place], [place]. Erythrocytes (RBC) 5.98 million/mcL High 3.80-5.10 [facility] Comment on above: Performed By: #### 2 4317-0 ####[facility], [address] [address], [place]. Hematocrit (HCT) 45.7 % High 35.0-45.0 [facility] Comment on above: Performed By: #### 2 4317-0 ####[facility], [address] [place], [place]. Hemoglobin mass conc (Bld) 15.3 g/dL Normal 12.0-16.0 [facility] Comment on above: Performed By: #### 2 4317-0 ####[facility], [address] [place], [place]. MCH 25.6 Picograms Low 27.0-34.0 [facility] Comment on above: Performed By: #### 2 4317-0 ####[facility], [address] [place], [place]. MCHC mass conc (RBC) 33.5 g/dL Normal 32.0-36.0 [place] Comment on above: Performed By: #### 2 4317-0 ####[facility], [address] [place], [place]. MCV 76.5 fL Low 80.0-97.0 [facility] Comment on above: Performed By: #### 2 4317-0 ####[facility], [address] [place], [place]. Platelet mean volume (PMV) 8.0 fL Normal 6.2-12.1 [facility] Comment on above: Performed By: #### 2 4317-0 ####[facility], [address] [place], [place]. Platelets 330 thou/mcL Normal 142-424 [facility] Comment on above: Performed By: #### 2 4317-0 ####[facility], [address] [place], [place]. WBC (Leukocytes) 9.9 thou/mcL Normal 4.6-10.2 [facility] Comment on above: Performed By: #### 2 4317-0 ####[facility], [address] [place], [place]. Depart Summaryon 09-18-2017 Depart Summary EMERGENCY DEPARTMENT DISCHARGE SUMMARYPATIENT NAME:MELISSA BYRNE : 22 Years SEX: Female PHONE:[phone]: 09/18/2017 2:10 PM : 1995 ATTENDING PHYSICIAN:Josie Hernandez MD PCP: Verona Hilliard MD CHIEF COMPLAINT: abdominal cramping/back pain Allergies NKAProblems No Problems Documented DISCHARGE DIAGNOSIS: Hyperglycemia; Pelvic pain DISCHARGE INSTRUCTIONS: Blood Glucose Monitoring, Adult; Pelvic Pain, Female; Abdominal Pain, Adult ED PHYSICIAN DOCUMENTATION: DISPOSITION:Time of Departure From ER 09/18/2017 17:19 Discharge/Transfer From ER Home 01 MEDICATION LISTS: CURRENT MEDICATION LISTnaproxen (Naprosyn 500 mg oral tablet) 1 Tab(s) By Mouth Twice a day as needed for pain for 10 Days. Refills: 0. MEDICATIONS GIVEN DURING MEDICAL VISITNone LAB RESULTS:LABORATORY TESTS: Abnormal Lab Result(s): Date Order Results 09/18/2017 15:25 Specific [place] Urine POCT N 1.020 09/18/2017 15:25 pH Urine POCT N 5 09/18/2017 15:55 Red Blood Cell Count H 5.98 million/mcL 09/18/2017 15:55 Hematocrit H 45.7 % 09/18/2017 15:55 MCV L 76.5 FL 09/18/2017 15:55 MCH L 25.6 Picograms 09/18/2017 15:55 Sodium Level L 134 mMol/L 09/18/2017 15:55 Glucose Level H 252 mg/dL 09/18/2017 15:55 Creatinine L 0.56 mg/dL RADIOLOGY:RADIOLOGY RESULT(S) (Please contact Medical Records office for further information): 09/18/2017 16:20 US Pelvis Non-OB Complete TRANSABDOMINAL AND ENDOVAGINAL PELVIC ULTRASOUND WITH DUPLEX DOPPLER: 09/18/2017 4:47 PMCOMPARISON: None available.HISTORY: Abdominal cramping. Back pain. Nausea.TECHNIQUE: Multiple grayscale and color Doppler sonographic images of the pelvis were obtained transabdominally and endovaginally, along with duplex Doppler (color Doppler and spectral Doppler waveform analysis) imaging of the ovaries.FINDINGS: The uterus is normal in size, contour, and position, measuring 8.2 x 5.3 x 4.7 cm. The endometrial stripe is normal in thickness and echogenicity, with a stripe thickness of 7 mm. There is an IUD present, which appears to be well positioned within the endometrial canal of the uterine fundus and body. There is normal echogenicity of the myometrium. A nabothian cyst is present within the cervix. The right ovary measures 3.9 x 3.6 x 2.7 cm. The left ovary measures 3.4 x 2.4 x 2.1 cm. Several follicles are present within both ovaries. There is no adnexal mass or cyst. Duplex Doppler evaluation demonstrates the presence of normal arterial and venous waveforms within the ovaries.The urinary bladder is contracted, limiting evaluation. There is a small amount of nonspecific free pelvic fluid.IMPRESSION: 1. Normal sonographic appearance of the uterus and ovaries.2. Well-positioned IUD.3. Small amount of nonspecific free pelvic fluid. This may simply be physiologic in nature.Ang Rankin thanks you for the opportunity to care for your patient. Workstation ID: [id number] 09/18/2017 16:20 US Transvaginal TRANSABDOMINAL AND ENDOVAGINAL PELVIC ULTRASOUND WITH DUPLEX DOPPLER: 09/18/2017 4:47 PMCOMPARISON: None available.HISTORY: Abdominal cramping. Back pain. Nausea.TECHNIQUE: Multiple grayscale and color Doppler sonographic images of the pelvis were obtained transabdominally and endovaginally, along with duplex Doppler (color Doppler and spectral Doppler waveform analysis) imaging of the ovaries.FINDINGS: The uterus is normal in size, contour, and position, measuring 8.2 x 5.3 x 4.7 cm. The endometrial stripe is normal in thickness and echogenicity, with a stripe thickness of 7 mm. There is an IUD present, which appears to be well positioned within the endometrial canal of the uterine fundus and body. There is normal echogenicity of the myometrium. A nabothian cyst is present within the cervix. The right ovary measures 3.9 x 3.6 x 2.7 cm. The left ovary measures 3.4 x 2.4 x 2.1 cm. Several follicles are present within both ovaries. There is no adnexal mass or cyst. Duplex Doppler evaluation demonstrates the presence of normal arterial and venous waveforms within the ovaries.The urinary bladder is contracted, limiting evaluation. There is a small amount of nonspecific free pelvic fluid.IMPRESSION: 1. Normal sonographic appearance of the uterus and ovaries.2. Well-positioned IUD.3. Small amount of nonspecific free pelvic fluid. This may simply be physiologic in nature.Ang Rankin thanks you for the opportunity to care for your patient. Workstation ID: [id number] 09/18/2017 16:20 NV Duplex Abd/Pelvis Retroper Complete TRANSABDOMINAL AND ENDOVAGINAL PELVIC ULTRASOUND WITH DUPLEX DOPPLER: 09/18/2017 4:47 PMCOMPARISON: None available.HISTORY: Abdominal cramping. Back pain. Nausea.TECHNIQUE: Multiple grayscale and color Doppler sonographic images of the pelvis were obtained transabdominally and endovaginally, along with duplex Doppler (color Doppler and spectral Doppler waveform analysis) imaging of the ovaries.FINDINGS: The uterus is normal in size, contour, and position, measuring 8.2 x 5.3 x 4.7 cm. The endometrial stripe is normal in thickness and echogenicity, with a stripe thickness of 7 mm. There is an IUD present, which appears to be well positioned within the endometrial canal of the uterine fundus and body. There is normal echogenicity of the myometrium. A nabothian cyst is present within the cervix. The right ovary measures 3.9 x 3.6 x 2.7 cm. The left ovary measures 3.4 x 2.4 x 2.1 cm. Several follicles are present within both ovaries. There is no adnexal mass or cyst. Duplex Doppler evaluation demonstrates the presence of normal arterial and venous waveforms within the ovaries.The urinary bladder is contracted, limiting evaluation. There is a small amount of nonspecific free pelvic fluid.IMPRESSION: 1. Normal sonographic appearance of the uterus and ovaries.2. Well-positioned IUD.3. Small amount of nonspecific free pelvic fluid. This may simply be physiologic in nature.[place] thanks you for the opportunity to care for your patient. Workstation ID: [id number] FOLLOW UP:FOLLOW-UP APPOINTMENTS: Provider: Specialty: Address: Date: Verona Hilliard MD Family Practice [address] [place] [address] [phone] (1) 1 to 2 days Normal [facility] ED Pat Rocio 09-18-2017 ED [place] [address] [facility] Department Discharge Instructions MELISSA BYRNE , Please provide this information to your Primary Care/Specialist Name : MELISSA BYRNE Current Date : 09/18/2017 17:27:36DOB : 1995 12:00 PM Primary Care Physician: Verona Hilliard MD Diagnosis : Hyperglycemia; Pelvic pain Follow-Up Instructions:MELISSA BYRNE has been given these follow-up instructions: FOLLOW-UP APPOINTMENTS: Provider: Specialty: Address: Date: Verona Hilliard MD Family [address] [phone] (1) 1 to 2 days Laboratory Orders: Name: Status: Urinalysis Manual POCT (CO) Completed Urine Test POCT (CO) Completed CBC Completed Basic Metabolic Panel Completed GFRaa Completed GFRbb Completed Radiology Orders: Name: Status: US Transvaginal Completed NV Duplex Abd/Pelvis Retroper Complete Completed US Pelvis Non-OB Complete Completed Diagnostic Tests: None Ordered Procedure(s) and Patient Education(s) : Blood Glucose Monitoring, Adult; Pelvic Pain, Female; Abdominal Pain, Adult EMERGENCY SERVICES MEDICATION LISTLista de Medicaciones de los Servicios de Emergencia Name JOANNE BYRNENDRIA AMRITA MRN (COL)-[id number] PLEASE READ THE FOLLOWING REGARDING YOUR MEDICATIONS Based on the information available during your visit we have given you the medication instructions below. Continue taking medications you took prior to your visit unless you have been told to change. Please share this information with your own doctor. Carry a list of your medications with you in case of an emergency. Update it when medications are stopped, doses are changed, or new medications (including maob-mmc-fdexqvn products) are added. If you have any questions, check with your doctor. Por la informaci??n disponible ai martinez visita, las instrucciones de medicaci??n aparecen debajo. Favor de continuar tomando las medicaciones Ud. bernadette?? antes de martinez visita por lo menos que hay cambios. Favor de compartir esta informaci??n con martinez medico. Lleva sandra lista de medicaciones consigo por nirali de emergenc??a. Actualiza la lista cuando Ud. neeraj de richard las medicaciones, si cambian las dosis, o si hay nuevas medicaciones a??adidas (incluyendo medicaciones vendidas sin prescripci??n). Favor de preguntar a martinez medico por cualquier kristen. THESE ARE THE MEDICATIONS YOU SHOULD BE TAKINGnaproxen (Naprosyn 500 mg oral tablet) 1 Tab(s) By Mouth Twice a day as needed for pain for 10 Days. Refills: 0.MEDICATIONS GIVEN DURING MEDICAL VISITNone NON-MEDICATION PRESCRIPTION SCHEDULING PHONE NUMBER: MEDICATION CHANGE DETAILS (Not your Final Home Medication List) During the course of your visit, your home medication list was updated with the most current information. The details of those changes are shown below: NEW MEDICATIONSPrinted Prescriptionsnaproxen (Naprosyn 500 mg oral tablet) 1 Tab(s) By Mouth Twice a day as needed for pain for 10 Days. Refills: 0.Comment ____UPDATED MEDICATIONSNoneUNCHANGE D MEDICATIONSNoneSTOP TAKING THESE MEDICATIONSNoneDO NOT TAKE UNTIL YOU TALK TO YOUR DOCTORNone [place] [address] [facility] Discharge Instructions Name: MELISSA BYRNE Current Date: 09/18/2017 17:27:36 : 1995 12:00 PM Primary Physician: Verona Hilliard MD We would like to thank you for choosing [facility] for your emergency medical needs. We examined and treated you today on an emergency basis only. This was not a substitute for, or an effort to provide, complete medical care. In most cases, you must let your doctor (or the doctor we referred you to) check you again. Tell your doctor about any new or lasting problems. We cannot recognize and treat all injuries or illnesses in one emergency department visit. After you leave, you should follow the directions attached. Instructions for obtaining X-rays:When following up with your doctor, you may need to take copies of your x-rays that were done in the Emergency Department. If you didn't receive these upon your discharge from the emergency department, please call . When the final report becomes available and it is reviewed, the emergency department will attempt to contact you if there are any changes in your instructions. It is important that you leave accurate information with us on how to contact you. IF you cannot be contacted, YOU must contact the follow-up doctor that you were assigned to make sure that the final official x-ray report does not require a change in your treatment. Instructions for obtaining medical records:If you need a copy of your medical records for follow-up, please contact the Health Information Management Department at . Their office hours are 8 AM- 4:30 PM, Friday through Friday. Please note: Results are not immediately available. Please allow a minimum of 36 hours for documentation and results.If you were prescribed an antibiotic:Antibiotics are life-saving drugs and they need to be used properly. Your team might change your antibiotic because test results show that a different antibiotic would be better to treat your infection. Like all medications, antibiotics have side effects. Some can be serious. This includes the risk of getting an antibiotic-resistant infection later, which may be difficult to treat. Remember to take your antibiotics as prescribed. If you have any questions please talk to your healthcare team.Seatbelts:There is no doubt that seatbelts save lives. Every day, people without seatbelts have more serious injuries. Have everyone buckle up, using age appropriate seatbelts or car seats, to reduce their risk of injury.Smoking:If you do smoke, we encourage you to stop. Smoking affects all aspects of your health and the health of those around you. Call the [place] [employer] at 4-761-BJPH-USA or the [place] [employer] at 1-481-SLK-8201 for more information.High blood pressure: Your screening blood pressure today was 132 mm Hg / . Hypertension (high blood pressure) is blood pressure over 120/80. People with hypertension should contact their primary care provider within 30 days to follow up. Check your patient portal for additional blood pressure information.Immunizatio ns:Immunization is a way to protect against deadly infections. Discuss this with your child's business liaison manager, or Public Health Department. Your family practice doctor can determine if you need pneumonia or flu vaccine. The [facility] Department can be reached at .Domestic Violence:If you are a victim of domestic violence (physical, verbal, or emotional), you are not alone. Discuss this with your physician or a friend and call Choices Hotline ( for assistance and support.You are the most important factor in your recovery. Follow the provided instructions carefully. Take your medications as prescribed. Most importantly, see a doctor again as discussed. If you have problems that we have not discussed, call or visit your doctor right away. If you do not have a primary care physician, we have provided one for you to follow up with. When you call for an appointment, please inform them that you were seen in the emergency department and the date of your visit. If you are unable to reach your doctor and are still experiencing problems, return to the emergency department. For assistance finding a primary care physician, call the Physician Referral Line at .Suicide Hotline:Your mental and emotional well-being is important. If you are in a mental health crisis or are having thoughts of suicide, please call the nationwide suicide hotline, anytime day or night, at 6-868-580-TQGC. Pharmacy Information:Below is a list of 24 hour pharmacies that we are aware of. We suggest that you call the specific pharmacy for their hours before traveling to a location. Hours may vary on holidays. [facility] [address] [address] [phone] [place] [address] [phone] [place] [address] [phone] [place], [place] [phone] [place], [place] [phone] [place] [address] [phone] [place] [address] [phone] Take all medications as directed. If you need prescription assistance, contact the following agencies:?? [facility] for Prescription Assistance at or www.pparx.org?? [facility] Best [facility] at or www.[employer]x.[employer]?? [employer] is a site with many valuable coupons Patient Education Materials MELISSA BYRNE has been given the following patient education materials: Emergency MedicineAbdominal Pain, AdultMany things can cause abdominal pain. Usually, abdominal pain is not caused by a disease and will improve without treatment. It can often be observed and treated at home. Your health care provider will do a physical exam and possibly order blood tests and X-rays to help determine the seriousness of your pain. However, in many cases, more time must pass before a clear cause of the pain can be found. Before that point, your health care provider may not know if you need more testing or further treatment. HOME CARE INSTRUCTIONSMonitor your abdominal pain for any changes. The following actions may help to alleviate any discomfort you are experiencing:???Only take rmew-zdz-apynhzu or prescription medicines as directed by your health care provider. ???Do not take laxatives unless directed to do so by your health care provider.???Try a clear liquid diet (broth, tea, or water) as directed by your health care provider. Slowly move to a bland diet as tolerated.SEEK MEDICAL CARE IF:???You have unexplained abdominal pain.???You have abdominal pain associated with nausea or diarrhea. ???You have pain when you urinate or have a bowel movement.???You experience abdominal pain that wakes you in the night.???You have abdominal pain that is worsened or improved by eating food.???You have abdominal pain that is worsened with eating fatty foods.???You have a fever. SEEK IMMEDIATE MEDICAL CARE IF:???Your pain does not go away within 2 hours.???You keep throwing up (vomiting).???Your pain is felt only in portions of the abdomen, such as the right side or the left lower portion of the abdomen.???You pass bloody or black tarry stools.MAKE SURE YOU:???Understand these instructions. ?Will watch your condition. ?Will get help right away if you are not doing well or get worse. ?This information is not intended to replace advice given to you by your health care provider. Make sure you discuss any questions you have with your health care provider.Document Released: 03/05/2006 Document Revised: 06/16/2015 Document Reviewed: 02/02/2014[employer] Interactive Patient Education ?2016 [employer].Obstetrics and GynecologyPelvic Pain, FemaleFemale pelvic pain can be caused by many different things and start from a variety of places. Pelvic pain refers to pain that is located in the lower half of the abdomen and between your hips. The pain may occur over a short period of time (acute) or may be reoccurring (chronic). The cause of pelvic pain may be related to disorders affecting the female reproductive organs (gynecologic), but it may also be related to the bladder, kidney stones, an intestinal complication, or muscle or skeletal problems. Getting help right away for pelvic pain is important, especially if there has been severe, sharp, or a sudden onset of unusual pain. It is also important to get help right away because some types of pelvic pain can be life threatening. CAUSESBelow are only some of the causes of pelvic pain. The causes of pelvic pain can be in one of several categories. ???Gynecologic. ???Pelvic inflammatory disease.???Sexually transmitted infection.???Ovarian cyst or a twisted ovarian ligament (ovarian torsion).???Uterine lining that grows outside the uterus (endometriosis).???Fibr oids, cysts, or tumors.???Ovulation. ???.???Pregnan cy that occurs outside the uterus (ectopic ).???Miscarria ge. ???Labor.???Abruption of the placenta or ruptured uterus.???Infection.??? Uterine infection (endometritis).???Bladd er infection.???Diverticul itis.???Miscarriage related to a uterine infection (septic ).???Bladder.?? ?Inflammation of the bladder (cystitis).???Kidney stone(s).???Gastrointes tinal.???Constipation.? ??Diverticulitis.???Danni rologic.???Trauma.???Fe eling pelvic pain because of mental or emotional causes (psychosomatic). ???Cancers of the bowel or pelvis. EVALUATIONYour caregiver will want to take a careful history of your concerns. This includes recent changes in your health, a careful gynecologic history of your periods (menses), and a sexual history. Obtaining your family history and medical history is also important. Your caregiver may suggest a pelvic exam. A pelvic exam will help identify the location and severity of the pain. It also helps in the evaluation of which organ system may be involved. In order to identify the cause of the pelvic pain and be properly treated, your caregiver may order tests. These tests may include: ???A test.???Pelvic ultrasonography.???An X-ray exam of the abdomen.???A urinalysis or evaluation of vaginal discharge.???Blood tests. HOME CARE INSTRUCTIONS???Only take jsxd-ocg-vhecdzu or prescription medicines for pain, discomfort, or fever as directed by your caregiver. ?Rest as directed by your caregiver. ?Eat a balanced diet. ?Drink enough fluids to make your urine clear or pale yellow, or as directed. ?Avoid sexual intercourse if it causes pain. ?Apply warm or cold compresses to the lower abdomen depending on which one helps the pain. ?Avoid stressful situations. ?Keep a journal of your pelvic pain. Write down when it started, where the pain is located, and if there are things that seem to be associated with the pain, such as food or your menstrual cycle.???Follow up with your caregiver as directed. ? SEEK MEDICAL CARE IF:???Your medicine does not help your pain.???You have abnormal vaginal discharge. SEEK IMMEDIATE MEDICAL CARE IF:???You have heavy bleeding from the vagina. ?Your pelvic pain increases. ?You feel light-headed or faint. ?You have chills. ?You have pain with urination or blood in your urine. ?You have uncontrolled diarrhea or vomiting. ?You have a fever or persistent symptoms for more than 3 days.???You have a fever and your symptoms suddenly get worse. ?You are being physically or sexually abused. ? MAKE SURE YOU:???Understand these instructions.???Will watch your condition.???Will get help if you are not doing well or get worse.This information is not intended to replace advice given to you by your health care provider. Make sure you discuss any questions you have with your health care provider.Document Released: 04/22/2005 Document Revised: 10/10/2015 Document Reviewed: 09/14/2012[employer] Interactive Patient Education ?2016 [employer].Preventive MedicineBlood Glucose Monitoring, AdultMonitoring your blood glucose (also know as blood sugar) helps you to manage your diabetes. It also helps you and your health care provider monitor your diabetes and determine how well your treatment plan is working.WHY SHOULD YOU MONITOR YOUR BLOOD GLUCOSE?It can help you understand how food, exercise, and medicine affect your blood glucose.???It allows you to know what your blood glucose is at any given moment. You can quickly tell if you are having low blood glucose (hypoglycemia) or high blood glucose (hyperglycemia).???It can help you and your health care provider know how to adjust your medicines.???It can help you understand how to manage an illness or adjust medicine for exercise.WHEN SHOULD YOU TEST?Your health care provider will help you decide how often you should check your blood glucose. This may depend on the type of diabetes you have, your diabetes control, or the types of medicines you are taking. Be sure to write down all of your blood glucose readings so that this information can be reviewed with your health care provider. See below for examples of testing times that your health care provider may suggest.Type 1 Diabetes???Test at least 2 times per day if your diabetes is well controlled, if you are using an insulin pump, or if you perform multiple daily injections.???If your diabetes is not well controlled or if you are sick, you may need to test more often.???It is a good idea to also test:???Before every insulin injection.???Before and after exercise.???Between meals and 2 hours after a meal.???Occasionally between 2:00 a.m. and 3:00 a.m.Type 2 Diabetes???If you are taking insulin, test at least 2 times per day. However, it is best to test before every insulin injection.???If you take medicines by mouth (orally), test 2 times a day.???If you are on a controlled diet, test once a day.???If your diabetes is not well controlled or if you are sick, you may need to monitor more often. HOW TO MONITOR YOUR BLOOD GLUCOSESupplies Needed???Blood glucose meter.???Test strips for your meter. Each meter has its own strips. You must use the strips that go with your own meter.???A pricking needle (lancet).???A device that holds the lancet (lancing device).???A journal or log book to write down your results.Procedure???Was h your hands with soap and water. Alcohol is not preferred.???Prick the side of your finger (not the tip) with the lancet.???Gently milk the finger until a small drop of blood appears.???Follow the instructions that come with your meter for inserting the test strip, applying blood to the strip, and using your blood glucose meter. Other Areas to Get Blood for TestingSome meters allow you to use other areas of your body (other than your finger) to test your blood. These areas are called alternative sites. The most common alternative sites are:???The forearm.???The thigh.???The back area of the lower leg.???The palm of the hand.The blood flow in these areas is slower. Therefore, the blood glucose values you get may be delayed, and the numbers are different from what you would get from your fingers. Do not use alternative sites if you think you are having hypoglycemia. Your reading will not be accurate. Always use a finger if you are having hypoglycemia. Also, if you cannot feel your lows (hypoglycemia unawareness), always use your fingers for your blood glucose checks.ADDITIONAL TIPS FOR GLUCOSE MONITORING???Do not reuse lancets.???Always carry your supplies with you.???All blood glucose meters have a 24-hour hotline number to call if you have questions or need help.???Adjust (calibrate) your blood glucose meter with a control solution after finishing a few boxes of strips. BLOOD GLUCOSE RECORD KEEPINGIt is a good idea to keep a daily record or log of your blood glucose readings. Most glucose meters, if not all, keep your glucose records stored in the meter. Some meters come with the ability to download your records to your home computer. Keeping a record of your blood glucose readings is especially helpful if you are wanting to look for patterns. Make notes to go along with the blood glucose readings because you might forget what happened at that exact time. Keeping good records helps you and your health care provider to work together to achieve good diabetes management. This information is not intended to replace advice given to you by your health care provider. Make sure you discuss any questions you have with your health care provider.Document Released: 05/28/2004 Document Revised: 06/16/2015 Document Reviewed: 10/18/2013[employer] Interactive Patient Education ?2016 [employer]><><><><><><><><>< ><><><><><><><><><>< ><><><><><> Patient Visit Summary Signature MELISSA BYRNE has been given the following list of patient education materials, prescriptions and follow-up instructions: CHAVEZ Cox ALEXANDRIA JUSTINE, have received the above patient education materials/instructions and have verbalized understanding: Date Time Patien t Signature Date Time Provid er Signature [facility] ED Physician Noteson 018 ED Physician Notes Chief Complaint abdominal cramping/back painED Assigned Provider/Time Time Seen: Poncho El / 09/18/2017 14:40History of Present Illness Patient is a 22 years old female presenting to the ED with lower abdominal cramp that started yesterday. However patient states the pain seemed to have increase in intensity this morning. Patient has had mild nausea without vomiting. No diarrhea. Patient denies any dysuria. Patient however does have mild low back pain as well. Patient has an IUD, and is concerned that this may be related to the pain. Patient denies any flank pain. No fever. No vaginal bleeding or discharge.Review of Systems Constitutional: No fever Vision: No blurred vision ENT: No rhinorrhea Respiratory: No cough Allergic: No allergies : No blood in urine GI: No blood in stool Hematologic: No bruising Dermatologic: No skin rash Musculoskeletal: No pain in the extremities Neuro: No numbness of the extremitiesPhysical Exam Vitals and Measurements T: 98.5 F HR: 110 RR: 16 BP: 139/98 SpO2: 100% HT: 160.9 cm WT: 95.4 kg BMI: 36.8 CONSTITUTIONAL: Well-appearing; well-nourished; Awake, alert and aware, in no acute distress HEAD: Normocephalic; atraumatic EYES: PERRL, no icterus, no conjunctival injection or pallor NOSE: The nose is normal in appearance without rhinorrhea MOUTH: Moist mucous membranes. Posterior pharynx without erythema, edema or exudate. No drooling or stridor. NECK: Supple, nontender, trachea midline. No cervical adenopathy. ABD: Soft, nondistended, tender with palpation to the mid lower abdominal region. Patient has no rebound, no guarding, no rigidity SKIN: Warm and dry without rash Medical Decision Making Patient is a 26 years old left Malagasy male with no known significant past medical history presenting to the ED for vertigo-like sensation that started around midnight last night patient stated lasted for approximately 6 hours and then subsided. Patient otherwise appears to be stable and in no apparent distress. Patient physical exam was positive for pain with palpation to the mid suprapubic region. Patient urine was obtained and came back as negative for UTI. Patient had blood work done showing no acute abnormality. Patient ultrasound of the pelvis show normal sonographic appearance of the uterus and ovaries. Well-positioned IUD. Small amount of nonspecific free pelvic fluid, this may simply be physiologic in nature. This was discussed with patient, and patient was advised to follow-up with PCP/[facility]. Patient will be prescribed naproxen for pain control. No need for further evaluation at this time. Patient knows to return to the ED for new or worsening symptoms.Assessment/Blanca n Hyperglycemia Pelvic pain Orders: naproxen, Take 1 Tab, PO, BID, PRN for pain, X 10 Day(s), # 20 Tab, 0 Refill(s)Problem List/Past Medical History Ongoing No qualifying data Historical No qualifying dataMedications Home No active home medications ED Administered Medications Prescriptions Naprosyn 500 mg oral tablet, 500 mg= 1 Tab, PO, BID, PRNAllergies NKASocial History Tobacco No qualifying data available.Diagnostic Results EKG POINT OF CARE TESTING urine color poct -clinic: Yellow (Normal) urine clarity poct -clinic: Clear (Normal) glucose urine poct: 1000 mg/dL bilirubin urine poct: Negative (Normal) ketones urine poct: 2+ moderate specific gravity urine poct: 1.020 blood urine poct: Negative (Normal) ph urine poct: 5 protein urine poct: Negative (Normal) nitrite urine poct: Negative (Normal) leukocytes urine poct: Negative (Normal) test poct: Negative test poct -clinic: Negative CHEMISTRY est crcl adjbw (ml/min)-rx: 174.33 est crcl ibw (ml/min)-rx: 132.34 gfr estimated : >60 gfr estimated non amer: >60 chloride level: 101 carbon dioxide level: 22 potassium level: 3.9 sodium level: 134 (Low) Ref Range: 136 - 145 anion gap: 11.0 bun: 12 glucose level: 252 (High) Ref Range: 70 - 110 creatinine: 0.56 (Low) Ref Range: 0.66 - 1.30 calcium total: 9.9 HEMATOLOGY wbc count: 9.9 red blood cell count: 5.98 (High) Ref Range: 3.80 - 5.10 hemoglobin: 15.3 hematocrit: 45.7 (High) Ref Range: 35.0 - 45.0 mcv: 76.5 (Low) Ref Range: 80.0 - 97.0 mch: 25.6 (Low) Ref Range: 27.0 - 34.0 mchc: 33.5 rdw: 14.3 platelet count: 330 mpv: 8.0 IMAGING RESULTS: US Transvaginal 17:01:54 IMPRESSION: 1. Normal sonographic appearance of the uterus and ovaries. 2. Well-positioned IUD. 3. Small amount of nonspecific free pelvic fluid. This may simply be physiologic in nature. [facility] thanks you for the opportunity to care for your patient. Workstation ID: [id number] - [id number] ORDERS PLACED: Laboratory Urinalysis Manual POCT (CO) Reynaldo GOODWIN Hernanhector Gonzalez September 18, 2017 15:07 Completed Urine Test POCT (CO) Reynaldo GOODWIN [facility] September 18, 2017 15:08 Completed CBC Reynaldo GOODWIN [facility] September 18, 2017 15:28 Completed BMP (Basic Metabolic Panel) Reynaldo GOODWIN [facility] September 18, 2017 15:29 Completed GFRAF Reynaldo GOODWIN [facility] September 18, 2017 16:01 Completed GFRNAF Reynaldo GOODWIN [facility] September 18, 2017 16:01 Completed Xray [place] Duplex Abd/Pelvis Retroper Complete Reynaldo GOODWIN [facility] September 18, 2017 15:[address] / MRI / Ultrasound US Transvaginal Reynaldo GOODWIN [facility] September 18, 2017 15:58 Completed Ultrasound Pelvis Non-OB Complete Reynaldo GOODWIN [facility] September 18, 2017 15:29 Completed [facility] ED Physician Notes PDF [facility] GFRaaon 09-18-2017 eGFR (black) mL/min/{1.73_m2} [facility] Comment on above: Result Comment: The MDRD equation has not been validated for those over 70 years, women, patients with serious co-morbid conditions, or with extremes of bodysize, muscle mass of nutritional status. Performed By: #### 6 [id number], [id number], [id number] ####[facility], [address] [place] [address]. GFRbbon 09-18-2017 eGFR (non-black) mL/min/{1.73_m2} [facility] Comment on above: Performed By: #### 6 [id number], [id number], [id number] ####[facility], [address], [place]. [place] Duplex Abd/Pelvis Retrope r Completeon 09-18-2017 [place] Duplex Abd/Pelvis Retroper Complete TRANSABDOMINAL AND ENDOVAGINAL PELVIC ULTRASOUND WITH DUPLEX DOPPLER: 09/18/2017 4:47 PMCOMPARISON: None available.HISTORY: Abdominal cramping. Back pain. Nausea.TECHNIQUE: Multiple grayscale and color Doppler sonographic images of the pelvis were obtained transabdominally and endovaginally, along with duplex Doppler (color Doppler and spectral Doppler waveform analysis) imaging of the ovaries.FINDINGS: The uterus is normal in size, contour, and position, measuring 8.2 x 5.3 x 4.7 cm. The endometrial stripe is normal in thickness and echogenicity, with a stripe thickness of 7 mm. There is an IUD present, which appears to be well positioned within the endometrial canal of the uterine fundus and body. There is normal echogenicity of the myometrium. A nabothian cyst is present within the cervix. The right ovary measures 3.9 x 3.6 x 2.7 cm. The left ovary measures 3.4 x 2.4 x 2.1 cm. Several follicles are present within both ovaries. There is no adnexal mass or cyst. Duplex Doppler evaluation demonstrates the presence of normal arterial and venous waveforms within the ovaries.The urinary bladder is contracted, limiting evaluation. There is a small amount of nonspecific free pelvic fluid.IMPRESSION: 1. Normal sonographic appearance of the uterus and ovaries.2. Well-positioned IUD.3. Small amount of nonspecific free pelvic fluid. This may simply be physiologic in nature.[facility] thanks you for the opportunity to care for your patient. Workstation ID: [id number] - [id number] FINAL REPORT Dictated By: Miguel Espinosa MD 09/18/2017 16:58Assigned Physician: Miguel Espinosa MD CReviewed and Electronically Signed By: Miguel Espinosa MD 09/18/2017 17:01Transcribed by: [facility] 09/18/2017 16:58Technologist: LARA [facility] US Pelvis Non-OB Completeon 09-18-2017 US Pelvis Non-OB Complete TRANSABDOMINAL AND ENDOVAGINAL PELVIC ULTRASOUND WITH DUPLEX DOPPLER: 09/18/2017 4:47 PMCOMPARISON: None available.HISTORY: Abdominal cramping. Back pain. Nausea.TECHNIQUE: Multiple grayscale and color Doppler sonographic images of the pelvis were obtained transabdominally and endovaginally, along with duplex Doppler (color Doppler and spectral Doppler waveform analysis) imaging of the ovaries.FINDINGS: The uterus is normal in size, contour, and position, measuring 8.2 x 5.3 x 4.7 cm. The endometrial stripe is normal in thickness and echogenicity, with a stripe thickness of 7 mm. There is an IUD present, which appears to be well positioned within the endometrial canal of the uterine fundus and body. There is normal echogenicity of the myometrium. A nabothian cyst is present within the cervix. The right ovary measures 3.9 x 3.6 x 2.7 cm. The left ovary measures 3.4 x 2.4 x 2.1 cm. Several follicles are present within both ovaries. There is no adnexal mass or cyst. Duplex Doppler evaluation demonstrates the presence of normal arterial and venous waveforms within the ovaries.The urinary bladder is contracted, limiting evaluation. There is a small amount of nonspecific free pelvic fluid.IMPRESSION: 1. Normal sonographic appearance of the uterus and ovaries.2. Well-positioned IUD.3. Small amount of nonspecific free pelvic fluid. This may simply be physiologic in nature.[facility] thanks you for the opportunity to care for your patient. Workstation ID: [id number] - [id number] FINAL REPORT Dictated By: Miguel Espinosa MD 09/18/2017 16:58Assigned Physician: Miguel Espinosa MD CReviewed and Electronically Signed By: Miguel Espinosa MD 09/18/2017 17:01Transcribed by: TAMI 09/18/2017 16:58Technologist: LARA [facility] US Transvaginalon 09-18-2017 US Transvaginal TRANSABDOMINAL AND ENDOVAGINAL PELVIC ULTRASOUND WITH DUPLEX DOPPLER: 09/18/2017 4:47 PMCOMPARISON: None available.HISTORY: Abdominal cramping. Back pain. Nausea.TECHNIQUE: Multiple grayscale and color Doppler sonographic images of the pelvis were obtained transabdominally and endovaginally, along with duplex Doppler (color Doppler and spectral Doppler waveform analysis) imaging of the ovaries.FINDINGS: The uterus is normal in size, contour, and position, measuring 8.2 x 5.3 x 4.7 cm. The endometrial stripe is normal in thickness and echogenicity, with a stripe thickness of 7 mm. There is an IUD present, which appears to be well positioned within the endometrial canal of the uterine fundus and body. There is normal echogenicity of the myometrium. A nabothian cyst is present within the cervix. The right ovary measures 3.9 x 3.6 x 2.7 cm. The left ovary measures 3.4 x 2.4 x 2.1 cm. Several follicles are present within both ovaries. There is no adnexal mass or cyst. Duplex Doppler evaluation demonstrates the presence of normal arterial and venous waveforms within the ovaries.The urinary bladder is contracted, limiting evaluation. There is a small amount of nonspecific free pelvic fluid.IMPRESSION: 1. Normal sonographic appearance of the uterus and ovaries.2. Well-positioned IUD.3. Small amount of nonspecific free pelvic fluid. This may simply be physiologic in nature.[facility] thanks you for the opportunity to care for your patient. Workstation ID: [id number] - [id number] FINAL REPORT Dictated By: Miguel Espinosa MD 09/18/2017 16:58Assigned Physician: Miguel Espinosa MD CReviewed and Electronically Signed By: Miguel Espinosa MD 09/18/2017 17:01Transcribed by: [facility] 09/18/2017 16:58Technologist: LG [facility] Vital Signs Date Time Vital Sign Value Performing Clinician Facility 12-02-2024 10:04040 Body mass index (BMI) [Ratio] 38.28 kg/m2 Keshav Loving MD Work Phone: [facility] 12-02-2024 10:04040 Body weight 96.16 kg Keshav Loving MD Work Phone: [facility] 12-02-2024 10:04-0400 Diastolic blood pressure 72 mm[Hg] Keshav Loving MD Work Phone: [facility] 12-02-2024 10:04-0400 Systolic blood pressure 104 mm[Hg] Keshav Loving MD Work Phone: [facility] 11-30-2024 15:35-0400 Body mass index (BMI) [Ratio] 38.1 kg/m2 [facility] 11-30-2024 15:35-0400 Body weight 95.71 kg [facility] 11-30-2024 15:35-0400 Diastolic blood pressure 64 mm[Hg] [facility] 11-30-2024 15:35-0400 Systolic blood pressure 128 mm[Hg] [facility] 11-25-2024 08:37-0400 Body mass index (BMI) [Ratio] 37.56 kg/m2 William Gramajo MD Work Phone: [facility] 11-25-2024 08:37-0400 Body weight 94.35 kg William Gramajo MD Work Phone: [facility] 11-25-2024 08:37-0400 Diastolic blood pressure 79 mm[Hg] William Gramajo MD Work Phone: [facility] 11-25-2024 08:37-0400 Systolic blood pressure 123 mm[Hg] William Gramajo MD Work Phone: [facility] 11-22-2024 09:17-0400 Diastolic blood pressure 70 mm[Hg] [facility] 11-22-2024 09:17-0400 Systolic blood pressure 126 mm[Hg] [facility] 11-18-2024 14:25-0400 Body mass index (BMI) [Ratio] 37.95 kg/m2 Keshav Loving MD Work Phone: [facility] 11-18-2024 14:25-0400 Body weight 95.35 kg Keshav Loving MD Work Phone: [facility] 11-18-2024 14:25-0400 Diastolic blood pressure 80 mm[Hg] Keshav Loving MD Work Phone: [facility] 11-18-2024 14:25-0400 Systolic blood pressure 119 mm[Hg] Keshav Loving MD Work Phone: [facility] 11-15-2024 16:13-0400 Diastolic blood pressure 75 mm[Hg] Dr. Jamari Byrne MD Work Phone: [facility] 11-15-2024 16:13-0400 Heart rate 96 /min Dr. Jamari Byrne MD Work Phone: [facility] 11-15-2024 16:13-0400 Systolic blood pressure 118 mm[Hg] Dr. Jamari Byrne MD Work Phone: [facility] 11-15-2024 16:12-0400 Body temperature 97.5 [degF] Dr. Jamari Byrne MD Work Phone: [facility] 11-15-2024 16:12-0400 Respiratory rate 16 /min Dr. Jamari Byrne MD Work Phone: [facility] 11-15-2024 16:12-0400 SaO2% (BldA) [Mass fraction] 98 % Dr. Jamari Byrne MD Work Phone: [facility] 11-15-2024 16:01-0400 Body height 157.[address] Jamari Byrne MD Work Phone: [facility] 11-15-2024 16:01-0400 Body mass index (BMI) [Ratio] 37.8 kg/m2 Dr. Jamari Byrne MD Work Phone: [facility] 11-15-2024 16:01-0400 Body weight 93.[address] Jamari Byrne MD Work Phone: [facility] 11-15-2024 08:29-0400 Body mass index (BMI) [Ratio] 37.66 kg/m2 Keshav Loving MD Work Phone: [facility] 11-15-2024 08:29-0400 Body weight 94.62 kg Keshav Loving MD Work Phone: [facility] 11-15-2024 08:29-0400 Diastolic blood pressure 68 mm[Hg] Keshav Loving MD Work Phone: [facility] 11-15-2024 08:29-0400 Systolic blood pressure 120 mm[Hg] Keshav Loving MD Work Phone: [facility] 11-11-2024 09:12-0400 Body mass index (BMI) [Ratio] 37.01 kg/m2 Krys Kulkarni MD Work Phone: [facility] 11-11-2024 09:12-0400 Body weight 92.99 kg Krys Kulkarni MD Work Phone: [facility] 11-11-2024 09:12-0400 Diastolic blood pressure 70 mm[Hg] Krys Kulkarni MD Work Phone: [facility] Comment on above: true bp 116/79; 109/75; 109/75; 108/74; 101/67; 108/74 11-11-2024 09:12-0400 Systolic blood pressure 128 mm[Hg] Krys Kulkarni MD Work Phone: [facility] Comment on above: true bp 116/79; 109/75; 109/75; 108/74; 101/67; 108/74 11-08-2024 09:29-0400 Diastolic blood pressure 64 mm[Hg] [facility] 11-08-2024 09:29-0400 Systolic blood pressure 126 mm[Hg] [facility] 11-05-2024 10:18-0400 Body mass index (BMI) [Ratio] 37.12 kg/m2 Krys Kulkarni MD Work Phone: [facility] 11-05-2024 10:18-0400 Body weight 93.26 kg Krys Kulkarni MD Work Phone: [facility] 11-05-2024 10:18-0400 Diastolic blood pressure 77 mm[Hg] Krys Kulkarni MD Work Phone: [facility] 11-05-2024 10:18-0400 Systolic blood pressure 114 mm[Hg] Krys Kulkarni MD Work Phone: [facility] 11-04-2024 09:43-0400 Body mass index (BMI) [Ratio] 37.34 kg/m2 Kelsy Radha DO Work Phone: [facility] 11-04-2024 09:43-0400 Body weight 93.8 kg Kelsy Radha DO Work Phone: [facility] 11-04-2024 09:43-0400 Diastolic blood pressure 68 mm[Hg] Kelsy Radha DO Work Phone: [facility] 11-04-2024 09:43-0400 Heart rate 102 /min Kelsy Radha DO Work Phone: [facility] 11-04-2024 09:43-0400 Systolic blood pressure 104 mm[Hg] Kelsy Radha DO Work Phone: [facility] 11-02-2024 09:36-0400 Body mass index (BMI) [Ratio] 37.41 kg/m2 [facility] 11-02-2024 09:36-0400 Body weight 93.98 kg [facility] 11-02-2024 09:36-0400 Diastolic blood pressure 60 mm[Hg] [facility] 11-02-2024 09:36-0400 Systolic blood pressure 112 mm[Hg] [facility] 10-25-2024 09:21-0400 Body mass index (BMI) [Ratio] 36.47 kg/m2 Piper Julian MD Work Phone: [facility] 10-25-2024 09:21-0400 Body weight 91.63 kg Piper Julian MD Work Phone: [facility] 10-25-2024 09:21-0400 Diastolic blood pressure 71 mm[Hg] Piper Julian MD Work Phone: [facility] 10-25-2024 09:21-0400 Systolic blood pressure 114 mm[Hg] Piper Julian MD Work Phone: [facility] 10-18-2024 13:38-0400 Body mass index (BMI) [Ratio] 36.11 kg/m2 Whit Schulte MD Work Phone: [facility] 10-18-2024 13:38-0400 Body weight 90.72 kg Whit Schulte MD Work Phone: [facility] 10-18-2024 13:38-0400 Diastolic blood pressure 60 mm[Hg] Whit Schulte MD Work Phone: [facility] 10-18-2024 13:38-0400 Systolic blood pressure 110 mm[Hg] Whit Schulte MD Work Phone: [facility] 10-16-2024 17:56-0400 Body temperature 98.1 [degF] Dr. Jamari Byrne MD Work Phone: [facility] 10-16-2024 17:56-0400 Diastolic blood pressure 71 mm[Hg] Dr. Jamari Byrne MD Work Phone: [facility] 10-16-2024 17:56-0400 Heart rate 96 /min Dr. Jamari Byrne MD Work Phone: [facility] 10-16-2024 17:56-0400 Respiratory rate 14 /min Dr. Jamari Byrne MD Work Phone: [facility] 10-16-2024 17:56-0400 SaO2% (BldA) [Mass fraction] 99 % Dr. Jamari Byrne MD Work Phone: [facility] 10-16-2024 17:56-0400 Systolic blood pressure 127 mm[Hg] Dr. Jamari Byrne MD Work Phone: [facility] 10-16-2024 17:53-0400 Body height 157.[address] Jamari Byrne MD Work Phone: [facility] 10-16-2024 17:53-0400 Body mass index (BMI) [Ratio] 36.8 kg/m2 Dr. Jamari Byrne MD Work Phone: [facility] 10-16-2024 17:53-0400 Body weight 91.[address] Jamari Byrne MD Work Phone: [facility] 10-04-2024 11:38-0400 Body mass index (BMI) [Ratio] 35.39 kg/m2 Piper Julian MD Work Phone: [facility] 10-04-2024 11:38-0400 Body weight 88.91 kg Piper Julian MD Work Phone: [facility] 10-04-2024 11:38-0400 Diastolic blood pressure 68 mm[Hg] Piper Julian MD Work Phone: [facility] 10-04-2024 11:38-0400 Systolic blood pressure 114 mm[Hg] Piper Julian MD Work Phone: [facility] 09-24-2024 15:07-0400 Body height 157.[address] Jamari Byrne MD Work Phone: [facility] 09-24-2024 15:07-0400 Body mass index (BMI) [Ratio] 35.5 kg/m2 Dr. Jamari Byrne MD Work Phone: [facility] 09-24-2024 15:07-0400 Body weight 88.[address] Jamari Byrne MD Work Phone: [facility] 09-24-2024 14:07-0400 Body temperature 98.1 [degF] Dr. Jamari Byrne MD Work Phone: [facility] 09-24-2024 14:07-0400 Respiratory rate 16 /min Dr. Jamari Byrne MD Work Phone: [facility] 09-24-2024 14:06-0400 Diastolic blood pressure 70 mm[Hg] Dr. Jamari Byrne MD Work Phone: [facility] 09-24-2024 14:06-0400 Heart rate 100 /min Dr. Jamari Byrne MD Work Phone: [facility] 09-24-2024 14:06-0400 Systolic blood pressure 122 mm[Hg] Dr. Jamari Byrne MD Work Phone: [facility] 09-24-2024 08:47-0400 Body mass index (BMI) [Ratio] 34.85 kg/m2 Leonie Waldron HOSPITAL STAFF PHARMACIST.CNM Work Phone: [facility] 09-24-2024 08:47-0400 Body weight 87.54 kg Leonie Waldron HOSPITAL STAFF PHARMACIST.CNM Work Phone: [facility] 09-24-2024 08:47-0400 Diastolic blood pressure 64 mm[Hg] Leonie Waldron HOSPITAL STAFF PHARMACIST.CNM Work Phone: [facility] 09-24-2024 08:47-0400 Systolic blood pressure 110 mm[Hg] Leonie Waldron HOSPITAL STAFF PHARMACIST.CNM Work Phone: [facility] 09-20-2024 13:22-0400 Body mass index (BMI) [Ratio] 34.59 kg/m2 Kelsy Radha DO Work Phone: [facility] 09-20-2024 13:22-0400 Body weight 86.9 kg Kelsy Radha DO Work Phone: [facility] 09-20-2024 13:22-0400 Diastolic blood pressure 71 mm[Hg] Kelsy Ardha DO Work Phone: [facility] 09-20-2024 13:22-0400 Heart rate 104 /min Kelsy Radha DO Work Phone: [facility] 09-20-2024 13:22-0400 Systolic blood pressure 116 mm[Hg] Kelsy Radha DO Work Phone: [facility] 09-07-2024 10:42-0400 Body mass index (BMI) [Ratio] 34.31 kg/m2 Ronaldo Rubio MD Work Phone: [facility] 09-07-2024 10:42-0400 Body weight 86.18 kg Ronaldo Rubio MD Work Phone: [facility] 09-07-2024 10:42-0400 Diastolic blood pressure 60 mm[Hg] Ronaldo Rubio MD Work Phone: [facility] 09-07-2024 10:42-0400 Systolic blood pressure 120 mm[Hg] Ronaldo Rubio MD Work Phone: [facility] 09-06-2024 10:02-0400 Body mass index (BMI) [Ratio] 34.61 kg/m2 Jamari Byrne MD Work Phone: [facility] 09-06-2024 10:02-0400 Body weight 85.82 kg Jamari Byrne MD Work Phone: [facility] 09-06-2024 10:02-0400 Diastolic blood pressure 68 mm[Hg] Jamari Byrne MD Work Phone: [facility] 09-06-2024 10:02-0400 Heart rate 98 /min Jamari Byrne MD Work Phone: [facility] 09-06-2024 10:02-0400 SaO2% (BldA) [Mass fraction] 98 % Jamari Byrne MD Work Phone: [facility] 09-06-2024 10:02-0400 Systolic blood pressure 120 mm[Hg] Jamari Byrne MD Work Phone: [facility] 09-02-2024 11:57-0400 Diastolic blood pressure 60 mm[Hg] [facility] 09-02-2024 11:57-0400 Systolic blood pressure 112 mm[Hg] [facility] 08-10-2024 08:05-0500 Body mass index (BMI) [Ratio] 33.26 kg/m2 [facility] 08-10-2024 08:05-0500 Body weight 83.55 kg [facility] 08-10-2024 08:05-0500 Diastolic blood pressure 70 mm[Hg] [facility] 08-10-2024 08:05-0500 Systolic blood pressure 112 mm[Hg] [facility] 07-26-2024 13:40-0500 Body mass index (BMI) [Ratio] 33.22 kg/m2 Kelsy Radha DO Work Phone: [facility] 07-26-2024 13:40-0500 Body weight 83.45 kg Kelsy Radha DO Work Phone: [facility] 07-26-2024 13:40-0500 Diastolic blood pressure 58 mm[Hg] Kelsy Radha DO Work Phone: [facility] 07-26-2024 13:40-0500 Heart rate 94 /min Kelsy Radha DO Work Phone: [facility] 07-26-2024 13:40-0500 Systolic blood pressure 127 mm[Hg] Kelsy Radha DO Work Phone: [facility] 07-23-2024 11:27-0500 Body mass index (BMI) [Ratio] 32.5 kg/m2 William Gramajo MD Work Phone: [facility] 07-23-2024 11:27-0500 Body weight 81.65 kg William Gramajo MD Work Phone: [facility] 07-23-2024 11:27-0500 Diastolic blood pressure 60 mm[Hg] William Gramajo MD Work Phone: [facility] 07-23-2024 11:27-0500 Systolic blood pressure 108 mm[Hg] William Gramajo MD Work Phone: [facility] 07-13-2024 09:51-0500 Body mass index (BMI) [Ratio] 32.21 kg/m2 William Gramajo MD Work Phone: [facility] 07-13-2024 09:51-0500 Body weight 80.92 kg William Gramajo MD Work Phone: [facility] 07-13-2024 09:51-0500 Diastolic blood pressure 60 mm[Hg] William Gramajo MD Work Phone: [facility] 07-13-2024 09:51-0500 Systolic blood pressure 110 mm[Hg] William Gramajo MD Work Phone: [facility] 07-01-2024 21:50-0500 Body temperature 98.71 [degF] Sixto Myers MD Work Phone: [facility] 07-01-2024 21:00-0500 Diastolic blood pressure 81 mm[Hg] Sixto Myers MD Work Phone: [facility] 07-01-2024 21:00-0500 Heart rate 110 /min Sixto Myers MD Work Phone: [facility] 07-01-2024 21:00-0500 Respiratory rate 18 /min Sixto Myers MD Work Phone: [facility] 07-01-2024 21:00-0500 SaO2% (BldA) [Mass fraction] 93 % Sixto Myers MD Work Phone: [facility] 07-01-2024 21:00-0500 Systolic blood pressure 123 mm[Hg] Sixto Myers MD Work Phone: [facility] 07-01-2024 19:43-0500 Body height 157.5 cm Sixto Myers MD Work Phone: [facility] 07-01-2024 19:43-0500 Body mass index (BMI) [Ratio] 32.56 kg/m2 Sixto Myers MD Work Phone: [facility] 07-01-2024 19:43-0500 Body weight 80.74 kg Sixto Myers MD Work Phone: [facility] 06-15-2024 14:25-0500 Body mass index (BMI) [Ratio] 32.17 kg/m2 Pooja Latham MD Work Phone: [facility] 06-15-2024 14:25-0500 Body weight 80.83 kg Pooja Latham MD Work Phone: [facility] 06-15-2024 14:25-0500 Diastolic blood pressure 58 mm[Hg] Pooja Latham MD Work Phone: [facility] 06-15-2024 14:25-0500 Systolic blood pressure 100 mm[Hg] Pooja Latham MD Work Phone: [facility] 06-07-2024 14:07-0500 Body mass index (BMI) [Ratio] 31.68 kg/m2 Kelsy Radha DO Work Phone: [facility] 06-07-2024 14:07-0500 Body weight 79.6 kg Kelsy Radha DO Work Phone: [facility] 06-07-2024 14:07-0500 Diastolic blood pressure 64 mm[Hg] Kelsy Radha DO Work Phone: [facility] 06-07-2024 14:07-0500 Heart rate 85 /min Kelsy Radha DO Work Phone: [facility] 06-07-2024 14:07-0500 Systolic blood pressure 104 mm[Hg] Kelsy Radha DO Work Phone: [facility] 05-26-2024 09:57-0500 Body mass index (BMI) [Ratio] 31.24 kg/m2 Krys Kulkarni MD Work Phone: [facility] 05-26-2024 09:57-0500 Body weight 78.47 kg Krys Kulkarni MD Work Phone: [facility] 05-26-2024 09:57-0500 Diastolic blood pressure 76 mm[Hg] Krys Kulkarni MD Work Phone: [facility] 05-26-2024 09:57-0500 Systolic blood pressure 116 mm[Hg] Krys Kulkarni MD Work Phone: [facility] 05-21-2024 19:12-0500 Body height 157.5 cm Reza Dyer DO Work Phone: [facility] 05-21-2024 19:12-0500 Body mass index (BMI) [Ratio] 31.28 kg/m2 Reza Dyer DO Work Phone: [facility] 05-21-2024 19:12-0500 Body temperature 97.7 [degF] Reza Dyer DO Work Phone: [facility] 05-21-2024 19:12-0500 Body weight 77.56 kg Reza Dyer DO Work Phone: [facility] 05-21-2024 19:12-0500 Diastolic blood pressure 68 mm[Hg] Reza Dyer DO Work Phone: [facility] 05-21-2024 19:12-0500 Heart rate 91 /min Reza Dyer DO Work Phone: [facility] 05-21-2024 19:12-0500 Respiratory rate 18 /min Reza Dyer DO Work Phone: [facility] 05-21-2024 19:12-0500 SaO2% (BldA) [Mass fraction] 100 % Reza Dyer DO Work Phone: [facility] 05-21-2024 19:12-0500 Systolic blood pressure 115 mm[Hg] Reza Dyer DO Work Phone: [facility] 05-07-2024 09:29-0500 Body height 158.5 cm Zayda Parker APRN.[employer] Work Phone: [facility] 05-07-2024 09:29-0500 Body mass index (BMI) [Ratio] 31.02 kg/m2 Zayda Parker APRN.[employer] Work Phone: [facility] 05-07-2024 09:29-0500 Body weight 77.93 kg Zayda Praker APRN.[employer] Work Phone: [facility] 05-07-2024 09:29-0500 Diastolic blood pressure 60 mm[Hg] Zayda Parker APRN.[employer] Work Phone: [facility] 05-07-2024 09:29-0500 Systolic blood pressure 120 mm[Hg] Zayda Parker [employer] Work Phone: [facility] 05-04-2024 14:37-0500 Body mass index (BMI) [Ratio] 31.93 kg/m2 Jamari Byrne MD Work Phone: [facility] 05-04-2024 14:37-0500 Body weight 76.66 kg Jamari Byrne MD Work Phone: [facility] 05-04-2024 14:37-0500 Diastolic blood pressure 76 mm[Hg] Jamari Byrne MD Work Phone: [facility] 05-04-2024 14:37-0500 Heart rate 95 /min Jamari Byrne MD Work Phone: [facility] 05-04-2024 14:37-0500 SaO2% (BldA) [Mass fraction] 98 % Jamari Byrne MD Work Phone: [facility] 05-04-2024 14:37-0500 Systolic blood pressure 118 mm[Hg] Jamari Byrne MD Work Phone: [facility] 05-03-2024 14:13-0500 Body mass index (BMI) [Ratio] 30.91 kg/m2 Kelsy Radha DO Work Phone: [facility] 05-03-2024 14:13-0500 Body weight 77.9 kg Kelsy Radha DO Work Phone: [facility] 05-03-2024 14:13-0500 Diastolic blood pressure 67 mm[Hg] Kelsy Radha DO Work Phone: [facility] 05-03-2024 14:13-0500 Heart rate 94 /min Kelsy Radha DO Work Phone: [facility] 05-03-2024 14:13-0500 Systolic blood pressure 101 mm[Hg] Kelsy Radha DO Work Phone: [facility] 04-28-2024 08:34-0500 Body height 154.9 cm Joanie Hurtado HOSPITAL STAFF PHARMACIST-[employer] Work Phone: [facility] 04-28-2024 08:34-0500 Body mass index (BMI) [Ratio] 32.06 kg/m2 Joanie Hurtado HOSPITAL STAFF PHARMACIST-[employer] Work Phone: [facility] 04-28-2024 08:34-0500 Body weight 76.97 kg Joanie Hurtado HOSPITAL STAFF PHARMACIST-[employer] Work Phone: [facility] 04-28-2024 08:34-0500 Diastolic blood pressure 82 mm[Hg] Joanie Hurtado HOSPITAL STAFF PHARMACIST-[employer] Work Phone: [facility] 04-28-2024 08:34-0500 Heart rate 104 /min Joanie Hurtado HOSPITAL STAFF PHARMACIST-[employer] Work Phone: [facility] 04-28-2024 08:34-0500 SaO2% (BldA) [Mass fraction] 97 % Joanie Hurtado HOSPITAL STAFF PHARMACIST-[employer] Work Phone: [facility] 04-28-2024 08:34-0500 Systolic blood pressure 140 mm[Hg] Joanie Hurtado HOSPITAL STAFF PHARMACIST-[employer] Work Phone: [facility] 04-18-2024 21:51-0500 Diastolic blood pressure 93 mm[Hg] Jamari Byrne MD Work Phone: [facility] 04-18-2024 21:51-0500 Heart rate 104 /min Jamari Byrne MD Work Phone: [facility] 04-18-2024 21:51-0500 Respiratory rate 18 /min Jamari Byrne MD Work Phone: [facility] 04-18-2024 21:51-0500 SaO2% (BldA) [Mass fraction] 98 % Jamari Byrne MD Work Phone: [facility] 04-18-2024 21:51-0500 Systolic blood pressure 133 mm[Hg] Jamari Byrne MD Work Phone: [facility] 04-18-2024 18:48-0500 Body height 154.9 cm Jamari Byrne MD Work Phone: [facility] 04-18-2024 18:48-0500 Body mass index (BMI) [Ratio] 32.88 kg/m2 Jamari Byrne MD Work Phone: [facility] 04-18-2024 18:48-0500 Body temperature 98.29 [degF] Jamari Byrne MD Work Phone: [facility] 04-18-2024 18:48-0500 Body weight 78.93 kg Jamari Byrne MD Work Phone: [facility] 01-23-2024 16:00-0400 Body mass index (BMI) [Ratio] 30.45 kg/m2 Jamari Byrne MD Work Phone: [facility] 01-23-2024 16:00-0400 Body weight 75.52 kg Jamari Byrne MD Work Phone: [facility] 01-23-2024 16:00-0400 Diastolic blood pressure 70 mm[Hg] Jamari yBrne MD Work Phone: [facility] 01-23-2024 16:00-0400 Heart rate 98 /min Jamari Byrne MD Work Phone: [facility] 01-23-2024 16:00-0400 SaO2% (BldA) [Mass fraction] 98 % Jamari Byrne MD Work Phone: [facility] 01-23-2024 16:00-0400 Systolic blood pressure 110 mm[Hg] Jamari Byrne MD Work Phone: [facility] 12-25-2023 16:05-0400 Body height 157.5 cm Jamari Byrne MD Work Phone: [facility] 12-25-2023 16:05-0400 Body mass index (BMI) [Ratio] 31.18 kg/m2 Jamari Byrne MD Work Phone: [facility] 12-25-2023 16:05-0400 Body weight 77.34 kg Jamari Byrne MD Work Phone: [facility] 12-25-2023 16:05-0400 Diastolic blood pressure 70 mm[Hg] Jamari Byrne MD Work Phone: [facility] 12-25-2023 16:05-0400 Heart rate 87 /min Jamari Byrne MD Work Phone: [facility] 12-25-2023 16:05-0400 SaO2% (BldA) [Mass fraction] 97 % Jamari Byrne MD Work Phone: [facility] Comment on above: RA 12-25-2023 16:05-0400 Systolic blood pressure 112 mm[Hg] Jamari Byrne MD Work Phone: [facility] 09-15-2023 10:19-0400 Body mass index (BMI) [Ratio] 34.46 kg/m2 Jamari Byrne MD Work Phone: [facility] 09-15-2023 10:19-0400 Body temperature 98.1 [degF] Jamari Byrne MD Work Phone: [facility] 09-15-2023 10:19-0400 Body weight 86.68 kg Jamari Byrne MD Work Phone: [facility] 09-15-2023 10:19-0400 Diastolic blood pressure 80 mm[Hg] Jamari Byrne MD Work Phone: [facility] 09-15-2023 10:19-0400 Heart rate 110 /min Jamari Byrne MD Work Phone: [facility] 09-15-2023 10:19-0400 SaO2% (BldA) [Mass fraction] 100 % Jamari Byrne MD Work Phone: [facility] 09-15-2023 10:19-0400 Systolic blood pressure 124 mm[Hg] Jamari Byrne MD Work Phone: [facility] 08-19-2023 10:08-0400 Body temperature 98.1 [degF] Krislyn Aberegg PA Work Phone: [facility] 08-19-2023 10:08-0400 Body weight 89 kg Krislyn Aberegg PA Work Phone: [facility] 08-19-2023 10:08-0400 Diastolic blood pressure 80 mm[Hg] Krislyn Aberegg PA Work Phone: [facility] 08-19-2023 10:08-0400 Heart rate 100 /min Krislyn Aberegg PA Work Phone: [facility] 08-19-2023 10:08-0400 Respiratory rate 20 /min Krislyn Aberegg PA Work Phone: [facility] 08-19-2023 10:08-0400 SaO2% (BldA) [Mass fraction] 97 % Krislyn Aberegg PA Work Phone: [facility] 08-19-2023 10:08-0400 Systolic blood pressure 110 mm[Hg] Krislyn Aberegg PA Work Phone: [facility] 07-10-2023 10:27-0500 Body mass index (BMI) [Ratio] 34.07 kg/m2 Jamari Byrne MD Work Phone: [facility] 07-10-2023 10:27-0500 Body temperature 97.81 [degF] Jamrai Byrne MD Work Phone: [facility] 07-10-2023 10:27-0500 Body weight 85.68 kg Jamari Byrne MD Work Phone: [facility] 07-10-2023 10:27-0500 Diastolic blood pressure 78 mm[Hg] Jamari Byrne MD Work Phone: [facility] 07-10-2023 10:27-0500 Heart rate 95 /min Jamari Byrne MD Work Phone: [facility] 07-10-2023 10:27-0500 SaO2% (BldA) [Mass fraction] 100 % Jamari Byrne MD Work Phone: [facility] 07-10-2023 10:27-0500 Systolic blood pressure 130 mm[Hg] Jamari Byrne MD Work Phone: [facility] 05-09-2023 11:11-0500 Body mass index (BMI) [Ratio] 35.07 kg/m2 Jamari Byrne MD Work Phone: [facility] 05-09-2023 11:11-0500 Body temperature 97.7 [degF] Jamari Byrne MD Work Phone: [facility] 05-09-2023 11:11-0500 Body weight 88.22 kg Jamari Byrne MD Work Phone: [facility] 05-09-2023 11:11-0500 Diastolic blood pressure 82 mm[Hg] Jamari Byrne MD Work Phone: [facility] 05-09-2023 11:11-0500 Heart rate 93 /min Jamari Byrne MD Work Phone: [facility] 05-09-2023 11:11-0500 SaO2% (BldA) [Mass fraction] 98 % Jamari Byrne MD Work Phone: [facility] 05-09-2023 11:11-0500 Systolic blood pressure 118 mm[Hg] Jamari Byrne MD Work Phone: [facility] 03-17-2023 11:08-0400 Body height 158.6 cm Jamari Byrne MD Work Phone: [facility] 03-17-2023 11:08-0400 Body mass index (BMI) [Ratio] 35.85 kg/m2 Jamari Byrne MD Work Phone: [facility] 03-17-2023 11:08-0400 Body weight 90.17 kg Jamari Byrne MD Work Phone: [facility] 03-17-2023 11:08-0400 Diastolic blood pressure 80 mm[Hg] Jamari Byrne MD Work Phone: [facility] 03-17-2023 11:08-0400 Heart rate 111 /min Jamari Byrne MD Work Phone: [facility] 03-17-2023 11:08-0400 Systolic blood pressure 110 mm[Hg] Jamari Byrne MD Work Phone: [facility] 12-13-2022 13:31-0400 Body height 158.6 cm Jamari Byrne MD Work Phone: [facility] 12-13-2022 13:31-0400 Body mass index (BMI) [Ratio] 36.77 kg/m2 Jamari Byrne MD Work Phone: [facility] 12-13-2022 13:31-0400 Body weight 92.49 kg Jamari Byrne MD Work Phone: [facility] 12-13-2022 13:31-0400 Diastolic blood pressure 80 mm[Hg] Jamari Byrne MD Work Phone: [facility] 12-13-2022 13:31-0400 Heart rate 104 /min Jamari Byrne MD Work Phone: [facility] 12-13-2022 13:31-0400 SaO2% (BldA) [Mass fraction] 97 % Jamari Byrne MD Work Phone: [facility] 12-13-2022 13:31-0400 Systolic blood pressure 118 mm[Hg] Jamari Byrne MD Work Phone: [facility] 08-17-2022 18:56-0500 Body height 160 cm Lazara Jon DO Work Phone: [facility] 08-17-2022 18:56-0500 Body mass index (BMI) [Ratio] 34.19 kg/m2 Lazara Jon DO Work Phone: [facility] 08-17-2022 18:56-0500 Body temperature 97.7 [degF] Lazara Jon DO Work Phone: [facility] 08-17-2022 18:56-0500 Body weight 87.54 kg Lazara Jon DO Work Phone: [facility] 08-17-2022 18:56-0500 Diastolic blood pressure 86 mm[Hg] Lazara Jon DO Work Phone: [facility] 08-17-2022 18:56-0500 Heart rate 96 /min Lazara Jon DO Work Phone: [facility] 08-17-2022 18:56-0500 Respiratory rate 16 /min Lazara Jon DO Work Phone: [facility] 08-17-2022 18:56-0500 SaO2% (BldA) [Mass fraction] 97 % Lazara Jon DO Work Phone: [facility] 08-17-2022 18:56-0500 Systolic blood pressure 126 mm[Hg] Lazara Jon DO Work Phone: [facility] 05-24-2022 10:15-0500 Body height 157.48 cm [employer] Work Phone: [facility] Work Phone: 05-24-2022 10:15-0500 Body mass index (BMI) [Ratio] 32.92 kg/m2 Jamari Pug Pharmer Work Phone: [facility] Work Phone: 05-24-2022 10:15-0500 Body surface area Derived from formula 1.83 m2 Jamari Pug Pharmer Work Phone: [facility] Work Phone: 05-24-2022 10:15-0500 Body weight 81.64 kg Jamari L Chavez Work Phone: [facility] Work Phone: 05-24-2022 10:15-0500 Diastolic blood pressure 82 mm[Hg] Jamari L Chavez Work Phone: [facility] Work Phone: 05-24-2022 10:15-0500 Heart rate 94 /min Jamari L Chavez Work Phone: [facility] Work Phone: 05-24-2022 10:15-0500 Systolic blood pressure 100 mm[Hg] Jamari L Chavez Work Phone: [facility] Work Phone: 01-04-2022 13:47-0400 Body height 157.48 cm Jamari L Chavez Work Phone: [facility] Work Phone: 01-04-2022 13:47-0400 Body mass index (BMI) [Ratio] 30.91 kg/m2 Jamari L Chavez Work Phone: [facility] Work Phone: 01-04-2022 13:47-0400 Body surface area Derived from formula 1.78 m2 Jamari L Chavez Work Phone: [facility] Work Phone: 01-04-2022 13:47-0400 Body weight 76.65 kg Jamari L Chavez Work Phone: [facility] Work Phone: 01-04-2022 13:47-0400 Diastolic blood pressure 78 mm[Hg] Jamari L Chavez Work Phone: [facility] Work Phone: 01-04-2022 13:47-0400 Heart rate 80 /min Jamari L Chavez Work Phone: [facility] Work Phone: 01-04-2022 13:47-0400 Systolic blood pressure 108 mm[Hg] Jamari L Chavez Work Phone: [facility] Work Phone: 12-25-2021 08:36-0400 Body height 157.48 cm Jamari L Chavez Work Phone: [address] Work Phone: 12-25-2021 08:36-0400 Body mass index (BMI) [Ratio] 30.36 kg/m2 Jamari L Chavez Work Phone: [address] Work Phone: 12-25-2021 08:36-0400 Body surface area Derived from formula 1.77 m2 Jamari L Chavez Work Phone: [place] [address] [address] Work Phone: 12-25-2021 08:36-0400 Body weight 75.3 kg Jamari L Chavez Work Phone: [address] Work Phone: 12-25-2021 08:36-0400 Diastolic blood pressure 76 mm[Hg] Jamari L Chavez Work Phone: [place] [address] [address] Work Phone: 12-25-2021 08:36-0400 Systolic blood pressure 116 mm[Hg] Jamari L Chavez Work Phone: [place] [address] [address] Work Phone: 12-17-2021 09:02-0400 Body height 157.48 cm Jamari L Chavez Work Phone: [place] [address] [address] Work Phone: 12-17-2021 09:02-0400 Body mass index (BMI) [Ratio] 30.44 kg/m2 Jamari L Chavez Work Phone: [address] Work Phone: 12-17-2021 09:02-0400 Body surface area Derived from formula 1.77 m2 Jamari L Chavez Work Phone: [place] [address] [address] Work Phone: 12-17-2021 09:02-0400 Body weight 75.5 kg Jamari L Chavez Work Phone: [place] [address] [address] Work Phone: 12-17-2021 09:02-0400 Diastolic blood pressure 76 mm[Hg] Jamari L Chavez Work Phone: [place] [address] [address] Work Phone: 12-17-2021 09:02-0400 Systolic blood pressure 112 mm[Hg] Jamari L Chavez Work Phone: [place] [address] [address] Work Phone: 11-26-2021 09:02-0400 Body height 157.48 cm Jamari L Chavez Work Phone: [place] [address] [address] Work Phone: 11-26-2021 09:02-0400 Body mass index (BMI) [Ratio] 31.09 kg/m2 Jamari L Chavez Work Phone: [place] [address] [address] Work Phone: 11-26-2021 09:02-0400 Body surface area Derived from formula 1.78 m2 Jamari L Chavez Work Phone: [place] [address] [address] Work Phone: 11-26-2021 09:02-0400 Body weight 77.11 kg Jamari L Chavez Work Phone: [place] [address] [address] Work Phone: 11-26-2021 09:02-0400 Diastolic blood pressure 82 mm[Hg] Jamari L Chavez Work Phone: [place] [address] [address] Work Phone: 11-26-2021 09:02-0400 Systolic blood pressure 118 mm[Hg] Jamari L Chavez Work Phone: [address] Work Phone: 11-12-2021 10:17-0400 Body height 159.5 cm Jamari L Chavez Work Phone: [facility] Work Phone: 11-12-2021 10:17-0400 Body mass index (BMI) [Ratio] 30.95 kg/m2 Jamari L Chavez Work Phone: [facility] Work Phone: 11-12-2021 10:17-0400 Body surface area Derived from formula 1.82 m2 Jamari L Chavez Work Phone: [facility] Work Phone: 11-12-2021 10:17-0400 Body weight 78.74 kg Jamari L Chavez Work Phone: [facility] Work Phone: 11-12-2021 10:17-0400 Diastolic blood pressure 70 mm[Hg] Jamari L Chavez Work Phone: [facility] Work Phone: 11-12-2021 10:17-0400 Heart rate 95 /min Jamari L Chavez Work Phone: [facility] Work Phone: 11-12-2021 10:17-0400 Systolic blood pressure 104 mm[Hg] Jamari L Chavez Work Phone: [facility] Work Phone: 01-04-2021 10:07-0400 Body height 159.99 cm Rich L Oberhauser Work Phone: [facility] Work Phone: 01-04-2021 10:07-0400 Body mass index (BMI) [Ratio] 32.96 kg/m2 Rich L Oberhauser Work Phone: [facility] Work Phone: 01-04-2021 10:07-0400 Body surface area Derived from formula 1.87 m2 Rich L Oberhauser Work Phone: [facility] Work Phone: 01-04-2021 10:07-0400 Body temperature 97.9 [degF] Rich L Oberhauser Work Phone: [facility] Work Phone: 01-04-2021 10:07-0400 Body weight 84.37 kg Rich L Oberhauser Work Phone: [facility] Work Phone: 01-04-2021 10:07-0400 Diastolic blood pressure 79 mm[Hg] Rich L Oberhauser Work Phone: [facility] Work Phone: 01-04-2021 10:07-0400 Heart rate 100 /min Rich L Oberhauser Work Phone: [facility] Work Phone: 01-04-2021 10:07-0400 Systolic blood pressure 125 mm[Hg] Rich L Oberhauser Work Phone: [facility] Work Phone: 11-02-2020 15:58-0400 Body height 159.99 cm Rich L Oberhauser Work Phone: [facility] Work Phone: 11-02-2020 15:58-0400 Body mass index (BMI) [Ratio] 32.96 kg/m2 Rich L Oberhauser Work Phone: [facility] Work Phone: 11-02-2020 15:58-0400 Body surface area Derived from formula 1.87 m2 Rich L Oberhauser Work Phone: [facility] Work Phone: 11-02-2020 15:58-0400 Body temperature 97.8 [degF] Rich L Oberhauser Work Phone: [facility] Work Phone: 11-02-2020 15:58-0400 Body weight 84.37 kg Rich L Oberhauser Work Phone: [facility] Work Phone: 11-02-2020 15:58-0400 Diastolic blood pressure 77 mm[Hg] Rich L Oberhauser Work Phone: [facility] Work Phone: 11-02-2020 15:58-0400 Heart rate 106 /min Rich L Oberhauser Work Phone: [facility] Work Phone: 11-02-2020 15:58-0400 Systolic blood pressure 120 mm[Hg] Rich L Oberhauser Work Phone: [facility] Work Phone: 10-24-2020 04:00-0400 Diastolic blood pressure 76 mm[Hg] Rich Oberhauser Other Phone: [facility] 10-24-2020 04:00-0400 Heart rate 96 /min Rich Oberhauser Other Phone: [facility] 10-24-2020 04:00-0400 Respiratory rate 18 /min Rich Oberhauser Other Phone: [facility] 10-24-2020 04:00-0400 SaO2% (BldA) [Mass fraction] 95 % Rich Oberhauser Other Phone: [facility] 10-24-2020 04:00-0400 Systolic blood pressure 115 mm[Hg] Rich Ng Other Phone: [facility] 12-08-2019 08:09-0400 BMI (Body Mass Index) 29.23 kg/m2 [facility] 12-08-2019 08:09-0400 Body weight 74.84 kg [facility] 12-08-2019 08:09-0400 BP Diastolic 82 mm[Hg] [facility] 12-08-2019 08:09-0400 BP Systolic 128 mm[Hg] [facility] 12-08-2019 08:09-0400 Height 160 cm [facility] 12-08-2019 08:09-0400 Pulse (Heart Rate) 103 /min [facility] 12-08-2019 08:09-0400 Pulse Oximetry 97 % [facility] 12-08-2019 08:09-0400 Respiratory Rate 16 /min [facility] 09-29-2019 17:47-0400 BMI (Body Mass Index) 28.18 kg/m2 Rich Ng [facility] Work Phone: 09-29-2019 17:47-0400 Body Temperature 98.5 [degF] Rich Ng [facility] Work Phone: 09-29-2019 17:47-0400 Body weight 72.12 kg Rich Ng [facility] Work Phone: 09-29-2019 17:47-0400 BP Diastolic 93 mm[Hg] Rich Ng [facility] Work Phone: 09-29-2019 17:47-0400 BP Systolic 136 mm[Hg] Rich Ng [facility] Work Phone: 09-29-2019 17:47-0400 BSA (Body Surface Area) 1.75 m2 Rich Ng [facility] Work Phone: 09-29-2019 17:47-0400 Height 159.99 cm Rich Ng [facility] Work Phone: 09-29-2019 17:47-0400 Pulse (Heart Rate) 101 /min Rich Ng [facility] Work Phone: 09-27-2019 16:07-0400 BMI (Body Mass Index) 28.17 kg/m2 Rich Ng [facility] Work Phone: 09-27-2019 16:07-0400 Body weight 72.12 kg Rich Ng [facility] Work Phone: 09-27-2019 16:07-0400 BP Diastolic 78 mm[Hg] Rich Ng [facility] Work Phone: 09-27-2019 16:07-0400 BP Systolic 128 mm[Hg] Rich Ng [facility] Work Phone: 09-27-2019 16:07-0400 BSA (Body Surface Area) 1.75 m2 Rich Ng [facility] Work Phone: 09-27-2019 16:07-0400 Height 160 cm Rich Ng [facility] Work Phone: 05-19-2019 11:48-0500 BMI (Body Mass Index) 29.8 kg/m2 Juno Blackburn [facility] [address] Work Phone: 05-19-2019 11:48-0500 Body weight 76.3 kg [facility] [address] Work Phone: 05-19-2019 11:48-0500 BP Diastolic 70 mm[Hg] [facility]o [facility] [address] Work Phone: 05-19-2019 11:48-0500 BP Systolic 110 mm[Hg] Juno [facility] d [address] Work Phone: 05-19-2019 11:48-0500 BSA (Body Surface Area) 1.8 m2 Juno [facility] [address] Work Phone: 05-19-2019 11:48-0500 Height 160.02 cm Juno Dubonlan d [address] Work Phone: 05-13-2019 16:36-0500 BMI (Body Mass Index) 24.88 kg/m2 Juno [facility] [employer] Work Phone: 05-13-2019 16:36-0500 Body weight 63.7 kg Juno [facility] [address] Work Phone: 05-13-2019 16:36-0500 BP Diastolic 68 mm[Hg] Juno [facility] [address] Work Phone: 05-13-2019 16:36-0500 BP Systolic 100 mm[Hg] Juno [facility] [address] Work Phone: 05-13-2019 16:36-0500 BSA (Body Surface Area) 1.66 m2 [facility] Work Phone: 05-13-2019 16:36-0500 Height 160.02 cm [facility] [employer] Work Phone: 03-21-2019 22:15-0400 BMI (Body Mass Index) 27.63 kg/m2 [facility] 03-21-2019 22:15-0400 Body weight 70.76 kg [facility] 03-21-2019 22:15-0400 Height 160 cm [facility] 03-21-2019 22:13-0400 Body Temperature 98.91 [degF] [facility] 03-21-2019 22:13-0400 BP Diastolic 77 mm[Hg] [facility] 03-21-2019 22:13-0400 BP Systolic 114 mm[Hg] [facility] 03-21-2019 22:13-0400 Pulse (Heart Rate) 84 /min [facility] 03-21-2019 22:13-0400 Pulse Oximetry 98 % [facility] 03-21-2019 22:13-0400 Respiratory Rate 18 /min [facility] 03-11-2019 10:55-0400 Body Temperature 98.49 [degF] [facility] 03-11-2019 10:55-0400 BP Diastolic 65 mm[Hg] [facility] 03-11-2019 10:55-0400 BP Systolic 119 mm[Hg] [facility] 03-11-2019 10:55-0400 Pulse (Heart Rate) 78 /min [facility] 03-11-2019 10:55-0400 Pulse Oximetry 97 % [facility] 03-11-2019 10:55-0400 Respiratory Rate 16 /min [facility] 03-11-2019 10:53-0400 BMI (Body Mass Index) 27.63 kg/m2 [facility] 03-11-2019 10:53-0400 Body weight 70.76 kg [facility] 03-11-2019 10:53-0400 Height 160 cm [facility] 02-10-2019 19:22-0400 BP Diastolic 86 mm[Hg] [facility] 02-10-2019 19:22-0400 BP Systolic 123 mm[Hg] [facility] 02-10-2019 19:22-0400 Pulse (Heart Rate) 86 /min [facility] 02-10-2019 19:22-0400 Pulse Oximetry 97 % [facility] 02-10-2019 19:22-0400 Respiratory Rate 16 /min [facility] 02-10-2019 17:11-0400 Body Temperature 97.3 [degF] [facility] 10-07-2018 01:36-0400 Body Temperature 98.01 [degF] [facility] 10-07-2018 01:36-0400 BP Diastolic 73 mm[Hg] [facility] 10-07-2018 01:36-0400 BP Systolic 113 mm[Hg] [facility] 10-07-2018 01:36-0400 Pulse (Heart Rate) 85 /min [facility] 10-07-2018 01:36-0400 Pulse Oximetry 97 % [facility] 10-07-2018 01:36-0400 Respiratory Rate 18 /min [facility] 10-06-2018 23:01-0400 BMI (Body Mass Index) 31.53 kg/m2 [facility] 10-06-2018 23:01-0400 Body weight 80.74 kg [facility] 10-06-2018 23:01-0400 Height 160 cm [facility] 10-05-2018 00:24-0400 Body Temperature 98.29 [degF] [facility] 10-05-2018 00:24-0400 BP Diastolic 90 mm[Hg] [facility] 10-05-2018 00:24-0400 BP Systolic 141 mm[Hg] [facility] 10-05-2018 00:24-0400 Pulse (Heart Rate) 82 /min [facility] 10-05-2018 00:24-0400 Pulse Oximetry 97 % [facility] 10-05-2018 00:24-0400 Respiratory Rate 20 /min [facility] 10-04-2018 21:38-0400 Respiratory rate 16 /min [facility] 10-04-2018 19:31-0400 BMI (Body Mass Index) 31.53 kg/m2 [facility] 10-04-2018 19:31-0400 Body weight 80.74 kg [facility] 10-04-2018 19:31-0400 Height 160 cm [facility] 09-12-2018 23:29-0400 Pulse (Heart Rate) 113 /min [facility] 09-12-2018 23:29-0400 Pulse Oximetry 97 % [facility] 09-12-2018 23:16-0400 Body Temperature 98.49 [degF] [facility] 09-12-2018 22:34-0400 BP Diastolic 66 mm[Hg] [facility] 09-12-2018 22:34-0400 BP Systolic 117 mm[Hg] [facility] 09-12-2018 22:34-0400 Respiratory Rate 16 /min [facility] 09-12-2018 21:16-0400 BMI (Body Mass Index) 31 kg/m2 [facility] 09-12-2018 21:16-0400 Height 160 cm [facility] 09-12-2018 21:16-0400 Weight 79.38 kg [facility] Comment on above: [facility] 02-01-2018 21:30-0400 Body temperature 37.0 [facility] Comment on above: Performed By: #### VBG #### Unless otherwise noted, all testing performed by [facility] [address] [facility] [address] [facility] [address] [place], [place] [address] CLIA: [id number] Hand Straightener: Cristofer Perry M.D. Encounters Encounter Date Encounter Type Care Provider Facility Start: 12-07-2024 Evaluation and manag ement of inpatient [facility] Facility:[facility] Start: 12-06-2024 End: 12-06-2024 Telephone encounter Kelsy Guillermo DO Work Phone: Endocrinology Comment on above: Blood Sugar Reading Start: 12-06-2024 End: 12-06-2024 Patient encounter procedure Whi Tech 1 Facsimile [employer] [facility] Comment on above: Pre-existing type 2 diabetes mellitus in in first trimester (HCC) (Primary Dx); 38 weeks gestation of (HCC) Start: 12-06-2024 End: 12-06-2024 ambulatory PIPER JULIAN Facility:[facility] Start: 12-06-2024 ambulatory [facility] Facility: [facility] Start: 12-02-2024 End: 12-02-2024 E-mail encounter from caregiver Keshav Loving MD Work Phone: OB/Gynecology Start: 12-02-2024 End: 12-02-2024 Patient encounter procedure Keshav Loving MD Work Phone: OB/Gynecology Comment on above: Pre-existing type 2 diabetes mellitus in in third trimester (HCC) (Primary Dx); 37 weeks gestation of (HCC); Supervision of high risk in third trimester (HCC) Start: 12-02-2024 End: 12-02-2024 ambulatory Keshav Loving MD Work Phone: OB/Gynecology Comment on above: Induction Start: 12-01-2024 End: 12-01-2024 Telephone encounter Kelsy Guillermo DO Work Phone: Endocrinology Comment on above: Blood Sugar Reading Start: 11-30-2024 End: 11-30-2024 Patient encounter procedure [employer] 1 [employer] [facility] Comment on above: Pre-existing type 2 diabetes mellitus in in third trimester (HCC) (Primary Dx); Pre-existing type 2 diabetes mellitus in in first trimester (HCC) Start: 11-30-2024 End: 11-30-2024 ambulatory PIPER JULIAN Facility:[facility] Start: 11-25-2024 End: 11-25-2024 Telephone encounter Kelsy Guillermo DO Work Phone: Endocrinology Comment on above: Blood Sugar Reading Start: 11-25-2024 End: 11-25-2024 Patient encounter procedure William Gramajo MD Work Phone: OB/Gynecology Comment on above: History of herpes ge nitalis (Primary Dx); Pre-existing type 2 diabetes mellitus in in third trimester (HCC); History of pre-eclampsia; 36 weeks gestation of (HCC) Start: 11-25-2024 End: 11-25-2024 ambulatory PIPER JULIAN Facility:[facility] Start: 11-22-2024 End: 11-22-2024 Patient encounter procedure [employer] 1 Facsimile [employer] [facility] Comment on above: Obesity affecting pr egnancy in first trimester, unspecified obesity type (HCC) (Primary Dx); Pre-existing type 2 diabetes mellitus in in first trimester (HCC) Start: 11-22-2024 End: 11-22-2024 ambulatory PIPER JULIAN Facility:[facility] Start: 11-18-2024 End: 11-18-2024 Patient encounter procedure Keshav Loving MD Work Phone: OB/Gynecology Comment on above: Pre-existing type 2 diabetes mellitus in in third trimester (HCC) (Primary Dx); 35 weeks gestation of (HCC); Vaginal itching Start: 11-18-2024 End: 11-18-2024 ambulatory JAMARI BYRNE Facility:[facility] Start: 11-16-2024 End: 11-16-2024 Telephone encounter Kelsy Guillermo DO Work Phone: Endocrinology Comment on above: Blood Sugar Reading Start: 11-15-2024 End: 11-15-[address] Jamari Byrne MD Work Phone: [facility] Work Phone: Start: 11-15-2024 End: 11-15-[address] Whit Patel [facility] Work Phone: Start: 11-15-2024 End: 11-15-2024 Patient encounter procedure Keshav Loving MD Work Phone: OB/Gynecology Comment on above: Pre-existing type 2 diabetes mellitus in in third trimester (HCC) (Primary Dx); 35 weeks gestation of ([facility]); Supervision of high risk in third trimester (HCC) Pre-existing type 2 diabetes mellitus in in first trimester (HCC) (Primary Dx); 35 weeks gestation of (HCC) Start: 11-15-2024 End: 11-15-2024 ambulatory PIPER JULIAN Facility:[facility] Start: 11-11-2024 End: 11-11-2024 Office outpatient visit 15 minutes Krys Kulkarni MD Work Phone: OB/Gynecology Comment on above: Pre-existing type 2 diabetes mellitus in in third trimester (HCC) (Primary Dx); pruritus, third trimester (HCC); History of pre-eclampsia; H/O macrosomia in infant in prior , currently ([facility]); 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[facility]); complication before (HCC); 34 weeks gestation of (HCC) Start: 11-11-2024 End: 11-11-2024 ambulatory KRYS KULKARNI Facility:[facility] Start: 11-08-2024 End: 11-08-2024 Patient encounter procedure Whi Tech 1 Facsimile Operator [facility] [facility] Comment on above: Pre-existing type 2 diabetes mellitus in in first trimester (HCC) (Primary Dx); 34 weeks gestation of (HCC) Start: 11-08-2024 End: 11-08-2024 [facility] Facility:[facility] Start: 11-05-2024 End: 11-05-2024 [facility] Start: 11-05-2024 End: 11-05-2024 Initial preventive medicine new pt age 12-17 yr Krys Kulkarni MD Work Phone: OB/Gynecology Comment on above: 33 weeks gestation o f (HCC) (Primary Dx); complication before (HCC); Pre-existing type 2 diabetes mellitus in in third trimester (HCC); Supervision of high risk in third trimester ([facility]); pruritus, third trimester ([facility]) Start: 11-05-2024 End: 11-05-2024 ambulatory [facility] Facility:[facility] Start: 11-04-2024 End: 11-04-2024 Subsequent hospital visit by physician Saranya Mcdonald Ob L&D Work Phone: OB/Gynecology Comment on above: complicati on before (HCC) [O99.891] Start: 11-04-2024 End: 11-04-[address] RD Work Phone: Endocrinology Comment on above: Medical Nutrition Th erapy Start: 11-04-2024 End: 11-04-2024 Patient encounter procedure Kelsy Guillermo DO Work Phone: Endocrinology Comment on above: Type 2 diabetes lazaro itus affecting in third trimester, antepartum (HCC) (Primary Dx); High-risk , third trimester (HCC) Start: 11-04-2024 End: 11-04-[address] Work Phone: Endocrinology Start: 11-02-2024 End: 11-03-2024 Telephone encounter Piper Julian MD Work Phone: OB/Gynecology Start: 11-02-2024 End: 11-02-2024 Patient encounter procedure Whi Tech 1 Facsimile Operator [facility] Comment on above: Pre-existing type 2 diabetes mellitus in in first trimester (HCC) (Primary Dx); Obesity affecting in first trimester, unspecified obesity type (HCC); 33 weeks gestation of (HCC) Pre-existing type 2 diabetes mellitus in in third trimester (HCC) (Primary Dx); History of pre-eclampsia; H/O macrosomia in in prior , currently (HCC); 33 weeks gestation of (HCC); Request for sterilization; Herpes simplex type 2 (HSV-2) infection affecting , antepartum, unspecified trimester ([facility]) Start: 11-02-2024 End: 11-02-2024 ambulatory JAMARI BYRNE Facility:[facility] Start: 10-29-2024 End: 11-22-2024 Follow-up encounter Piper Julian MD Work Phone: OB/Gynecology Start: 10-29-2024 End: 11-03-2024 Telephone encounter Piper Julian MD Work Phone: OB/Gynecology Comment on above: Breast Pump Start: 10-28-2024 End: 10-28-2024 ambulatory JAMARI L CHAVEZ Facility:[facility] Start: 10-25-2024 End: 10-25-2024 ambulatory JAMARI Lisa BYRNE Facility:[facility] Start: 10-25-2024 End: 10-25-2024 Patient encounter procedure Piper Julian MD Work Phone: OB/Gynecology Comment on above: Supervision of high risk in third trimester (HCC) (Primary Dx); Pre-existing type 2 diabetes mellitus in in third trimester (HCC); Exposure to parvovirus; History of pre-eclampsia Start: 10-25-2024 End: 10-25-2024 ambulatory PIPER JULIAN Facility:[facility] Start: 10-20-2024 End: 10-20-2024 ambulatory Piper Julian MD Work Phone: OB/Gynecology Comment on above: results Start: 10-20-2024 End: 10-20-2024 E-mail encounter from caregiver Piper Julian MD Work Phone: OB/Gynecology Start: 10-19-2024 End: 10-19-2024 Telephone encounter Kelsy Guillermo DO Work Phone: Endocrinology Comment on above: Blood Sugar Reading Start: 10-18-2024 End: 10-18-2024 E-mail encounter from caregiver Saranya Ob L&D Work Phone: [place] Start: 10-18-2024 End: 10-18-2024 Patient encounter procedure Whit Schulte MD Work Phone: OB/Gynecology Comment on above: Supervision of high risk in third trimester (HCC) (Primary Dx); Pre-existing type 2 diabetes mellitus in in third trimester (HCC); Herpes simplex type 2 (HSV-2) infection affecting , antepartum, unspecified trimester ([facility]); H/O macrosomia in infant in prior , currently ([facility]); History of pre-eclampsia; 31 weeks gestation of ([facility]) Start: 10-18-2024 End: 10-18-2024 ambulatory [facility] Work Phone: [place] Comment on above: M-Power Time to Sche dule Start: 10-16-2024 End: 10-16-[address] Jamari Byrne MD Work Phone: [facility] Work Phone: Start: 10-16-2024 End: 10-16-2024 Patient encounter procedure Mariajose Nickerson CN [facility] Work Phone: Start: 10-12-2024 End: 10-12-2024 Patient encounter procedure Pamela Haskins MD Work Phone: Pediatric Cardiology Start: 10-12-2024 End: 10-12-2024 ambulatory Pamela Haskins MD Work Phone: Pediatric Cardiology Start: 10-08-2024 End: 10-08-2024 Telephone encounter Kelsy Guillermo DO Work Phone: Endocrinology Comment on above: Blood Sugar Reading Start: 10-05-2024 End: 12-05-2024 Follow-up encounter Piper Julian MD Work Phone: OB/Gynecology Start: 10-04-2024 End: 10-04-2024 Patient encounter procedure Piper Julian MD Work Phone: OB/Gynecology Comment on above: Supervision of high risk in third trimester (HCC) (Primary Dx); History of pre-eclampsia; 29 weeks gestation of (HCC); Pre-existing type 2 diabetes mellitus in in third trimester (HCC); 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HCC); Pre-existing type 2 diabetes mellitus in in first trimester (HCC); Tobacco smoking complicating in first trimester (HCC); History of recurrent UTI (urinary tract infection); 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, 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, 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 fpc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 ([facility]); Herpes simplex type 2 (HSV-2) infection affecting , antepartum, unspecified trimester (HCC) Start: 10-04-2024 End: 10-04-2024 ambulatory JAMARI BYRNE Facility:[facility] Start: 09-29-2024 End: 11-29-2024 Follow-up encounter Leonie Waldron APRN.CNM Work Phone: OB/Gynecology Start: 09-27-2024 End: 09-27-2024 Telephone encounter Krys Kulkarni MD Work Phone: OB/Gynecology Comment on above: Results Start: 09-24-2024 End: 09-24-2024 Patient encounter procedure Leonie Waldron APRN.CNM Work Phone: OB/Gynecology Comment on above: Supervision of high risk in second trimester (HCC) (Primary Dx); 27 weeks gestation of (HCC); Burning with urination; Vaginal discharge; HSV (herpes simplex virus) infection Start: 09-24-2024 End: 09-24-2024 Telephone encounter Kelsyshalom Guillermo DO Work Phone: Endocrinology Comment on above: Blood Sugar Reading Start: 09-24-2024 End: 09-24-[address] Jamari Byrne MD Work Phone: [facility] Work Phone: Start: 09-24-2024 End: 09-24-2024 Patient encounter procedure Leonie Waldron CNM [facility] Work Phone: Start: 09-24-2024 End: 09-24-2024 Patient encounter procedure Mary GOODWIN Work Phone: [facility] Comment on above: Procedure not gisselle d out (Primary Dx) Start: 09-24-2024 End: 09-24-2024 ambulatory JAMARI BYRNE Facility:[facility] Start: 09-23-2024 End: 09-24-2024 Refill Kelsy Guillermo DO Work Phone: Endocrinology Comment on above: Refill Request Start: 09-20-2024 End: 11-20-2024 Follow-up encounter Kelsy Guillermo DO Work Phone: Endocrinology Start: 09-20-2024 End: 09-20-2024 ambulatory JAMARI BYRNE Facility:[facility] Start: 09-20-2024 End: 09-20-2024 Patient encounter procedure Kelsy Gonzalez Radha DO Work Phone: Endocrinology Comment on above: Type 2 diabetes lazaro itus during , antepartum, third trimester (HCC) (Primary Dx); Insulin controlled gestational diabetes mellitus (GDM) in first trimester (HCC); High-risk , third trimester (HCC) Start: 09-14-2024 End: 09-14-2024 E-mail encounter from caregiver Saranya Mcdonald Ob L&D Work Phone: [facility] 3 L&D Start: 09-14-2024 End: 09-14-2024 Patient encounter procedure Saranya Mcdonald Ob L&D Work Phone: [facility] 3 L&D Comment on above: M-Power Referral Start: 09-13-2024 End: 09-13-2024 Orders Only Tiana Hutchinson RN OB/Gynecology Comment on above: complicati on before (HCC) (Primary Dx) Start: 09-11-2024 End: 09-11-2024 Telephone encounter Kelsy Guillermo DO Work Phone: Endocrinology Comment on above: Blood Sugar Reading Start: 09-09-2024 End: 11-09-2024 Follow-up encounter Piper Julian MD Work Phone: OB/Gynecology Start: 09-08-2024 End: 09-08-2024 ambulatory [facility] Facility:[facility] Start: 09-07-2024 End: 10-20-2024 Telephone encounter Kelsy Guillermo DO Work Phone: Endocrinology Comment on above: Blood Sugar Reading Patient Question Start: 09-07-2024 End: 09-07-2024 ambulatory PIPER JULIAN Facility:[facility] Start: 09-07-2024 End: 09-07-2024 Patient encounter procedure Ronaldo Rubio MD Work Phone: OB/Gynecology Comment on above: Screening for diabet es mellitus (Primary Dx); Obesity affecting in first trimester, unspecified obesity type (HCC); Pre-existing type 2 diabetes mellitus in in first trimester (HCC); Herpes simplex type 2 (HSV-2) infection affecting , antepartum, unspecified trimester (HCC); 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HCC); Encounter for supervision of high risk in first trimester, antepartum (HCC); 25 weeks gestation of (HCC) Start: 09-06-2024 End: 09-06-2024 Office outpatient visit 15 minutes Jamari Byrne MD Work Phone: [facility] Comment on above: Exercise-induced ast hma (HHS-HCC); Bipolar depression (Multi) Start: 09-06-2024 End: 09-06-2024 ambulatory [facility] Start: 09-04-2024 End: 09-06-2024 Malini Gramajo MD Work Phone: OB/Gynecology Comment on above: Med Change Request Start: 09-03-2024 End: 11-03-2024 Follow-up encounter William Gramajo MD Work Phone: OB/Gynecology Start: 09-02-2024 End: 09-02-2024 ambulatory JAMARI BYRNE Facility:[facility] Start: 09-02-2024 End: 09-02-2024 Patient encounter procedure Whi Tech 1 Facsimile Operator [facility] Comment on above: Pre-existing type 2 diabetes mellitus in in first trimester (Primary Dx); Obesity affecting in first trimester, unspecified obesity type Start: 08-30-2024 End: 08-30-2024 Telephone encounter Kelsy Guillermo DO Work Phone: Endocrinology Comment on above: Blood Sugar Reading Start: 08-24-2024 End: 08-25-2024 Telephone encounter William Gramajo MD Work Phone: OB/Gynecology Comment on above: Patient Question Start: 08-24-2024 End: 08-24-2024 Patient encounter procedure Pamela Haskins MD Work Phone: Pediatric Cardiology Start: 08-24-2024 End: 08-24-2024 ambulatory Pamela Haskins MD Work Phone: Pediatric Cardiology Start: 08-20-2024 End: 08-20-2024 Telephone encounter Kelsy Guillermo DO Work Phone: Endocrinology Comment on above: Blood Sugar Reading Start: 08-18-2024 End: 08-18-2024 Telephone encounter Kelsy Guillermo DO Work Phone: Endocrinology Comment on above: Patient Request Start: 08-14-2024 End: 08-14-2024 Telephone encounter Kelsy Guillermo DO Work Phone: Endocrinology Comment on above: Blood Sugar Reading Start: 08-10-2024 End: 10-10-2024 Follow-up encounter William Gramajo MD Work Phone: OB/Gynecology Start: 08-10-2024 End: 08-10-2024 Telephone encounter Kelsy Guillermo DO Work Phone: Endocrinology Comment on above: returning your call Start: 08-10-2024 End: 08-10-2024 ambulatory [facility] Facility:[facility] Start: 08-10-2024 End: 08-10-2024 Patient encounter procedure Whi Tech 1 Facsimile Operator [facility] Comment on above: Encounter for anatomic survey (Primary Dx); 21 weeks gestation of ; Pre-existing type 2 diabetes mellitus in in first trimester Pre-existing type 2 diabetes mellitus in in first trimester (Primary Dx); Obesity affecting in first trimester, unspecified obesity type; History of pre-eclampsia; H/O macrosomia in in prior , currently ; History of bipolar disorder; 21 weeks gestation of ; Encounter for anatomic survey Obesity affecting pr egnancy in first trimester, unspecified obesity type (Primary Dx); Herpes simplex type 2 (HSV-2) infection affecting , antepartum, unspecified trimester; Pre-existing type 2 diabetes mellitus in in first trimester; Chromosome abnormality; Encounter for supervision of high risk in first trimester, antepartum; 21 weeks gestation of Start: 08-08-2024 End: 08-08-2024 Telephone encounter Kelsy Guillermo DO Work Phone: Endocrinology Comment on above: Blood Sugar Reading Start: 08-03-2024 End: 08-10-2024 ambulatory Kelsy Guillermo DO Work Phone: Endocrinology Comment on above: Insulin Start: 08-01-2024 End: 08-01-2024 Telephone encounter Kelsy Guillermo DO Work Phone: Endocrinology Comment on above: Blood Sugar Reading Start: 07-26-2024 End: 07-26-2024 ambulatory JAMARI Gonzalez CHAVEZ Facility:[facility] Start: 07-26-2024 End: 07-26-2024 Patient encounter procedure Kelsy Guillermo DO Work Phone: Endocrinology Comment on above: Type 2 diabetes lazaro itus complicating , antepartum, second trimester (Primary Dx); Insulin controlled gestational diabetes mellitus (GDM) in first trimester; High-risk , second trimester Start: 07-23-2024 End: 07-23-2024 ambulatory [facility] Start: 07-23-2024 End: 07-23-2024 Patient encounter procedure William Gramajo MD Work Phone: OB/Gynecology Comment on above: Vulvar irritation (P rimary Dx) Start: 07-20-2024 End: 07-20-2024 Telephone encounter Kelsy Guillermo DO Work Phone: Endocrinology Comment on above: Blood Sugar Reading Start: 07-17-2024 End: 07-19-2024 Refill Kelsy Guillermo DO Work Phone: Endocrinology Comment on above: Refill Request Start: 07-14-2024 End: 07-14-2024 Telephone encounter Kelsy Guillermo DO Work Phone: Endocrinology Comment on above: Blood Sugar Reading Start: 07-13-2024 End: 07-13-2024 [facility] Facility:[facility] Start: 07-13-2024 End: 07-13-2024 Patient encounter procedure Whi Tech 1 Facsimile Operator [facility] Maternal Medicine Comment on above: Pre-existing type 2 diabetes mellitus in in first trimester (Primary Dx); History of pre-eclampsia; H/O macrosomia in in prior , currently ; 17 weeks gestation of ; Encounter for screening for malformation using ultrasound Obesity affecting pr egnancy in first trimester, unspecified obesity type (Primary Dx); 17 weeks gestation of ; Encounter for anatomic survey; Herpes simplex type 2 (HSV-2) infection affecting , antepartum, unspecified trimester; with uncertain dates in first trimester Start: 07-04-2024 End: 07-04-2024 Telephone encounter Kelsy Guillermo DO Work Phone: Endocrinology Comment on above: Blood Sugar Reading Start: 07-02-2024 End: 07-02-2024 Telephone encounter William Gramajo MD Work Phone: OB/Gynecology Comment on above: OB Influenza Start: 07-01-2024 End: 07-01-2024 Emergency department patient visit Sixto Myers MD Work Phone: [facility] Comment on above: Influenza A (Primary Dx) Start: 06-28-2024 End: 06-28-2024 Telephone encounter Keshav Loving MD Work Phone: OB/Gynecology Comment on above: OB Cramping Start: 06-25-2024 End: 06-25-2024 Telephone encounter Kelsy Guillermo DO Work Phone: Endocrinology Comment on above: Blood Sugar Reading Start: 06-22-2024 End: 06-22-2024 Telephone encounter Fv Ob Mfm Work Phone: Maternal Medicine Start: 06-19-2024 End: 06-19-2024 Telephone encounter Kelsy Guillermo DO Work Phone: Endocrinology Comment on above: Blood Sugar Reading Start: 06-16-2024 End: 06-16-2024 ambulatory Carrie Rasta NARVAEZ Work Phone: Endocrinology Comment on above: Pre-existing type 2 diabetes mellitus in in second trimester (Primary Dx) Start: 06-16-2024 End: 06-16-2024 Telemedicine consultation with patient Carrie Larsen BRICE Work Phone: Endocrinology Start: 06-15-2024 End: 06-15-2024 ambulatory JAMARI BYRNE Facility:[facility] Start: 06-15-2024 End: 06-15-2024 Patient encounter procedure Whi Tech 1 Facsimile Operator [facility] Maternal Medicine Comment on above: Encounter for antena boone screening for malformation using ultrasound (Primary Dx); 13 weeks gestation of H/O macrosomia in in [place] in prior , currently ; Pre-existing type 2 diabetes mellitus in in first trimester; History of pre-eclampsia Start: 06-15-2024 End: 06-15-2024 ambulatory JAMARI BYRNE Facility:[facility] Start: 06-12-2024 End: 06-14-2024 ambulatory Kelsy Guillermo DO Work Phone: Endocrinology Comment on above: Glucose monitor Start: 06-11-2024 End: 06-11-2024 Telephone encounter Kelsy Guillermo DO Work Phone: Endocrinology Comment on above: Blood Sugar Reading Start: 06-07-2024 End: 06-07-2024 ambulatory JAMARI BYRNE Facility:[facility] Start: 06-07-2024 End: 06-07-2024 Patient encounter procedure Kelsy Guillermo DO Work Phone: Endocrinology Comment on above: Insulin controlled g estational diabetes mellitus (GDM) in first trimester Start: 06-05-2024 End: 06-05-2024 Telephone encounter Kelsy Guillermo DO Work Phone: Endocrinology Comment on above: Blood Sugar Reading Start: 06-01-2024 End: 06-01-2024 Telephone encounter Kelsy Guillermo DO Work Phone: Endocrinology Comment on above: Blood Sugar Reading Start: 05-26-2024 End: 05-26-2024 ambulatory JAMARI Lisa BYRNE Facility:[facility] Start: 05-26-2024 End: 05-26-2024 Office outpatient visit 15 minutes Krys Klukarni MD Work Phone: OB/Gynecology Comment on above: 10 weeks gestation o f (Primary Dx); Encounter for supervision of high risk in first trimester, antepartum; Pre-existing type 2 diabetes mellitus in in first trimester; Obesity affecting in first trimester, unspecified obesity type; Chromosome abnormality Start: 05-25-2024 End: 05-26-2024 ambulatory Kelsy Guillermo DO Work Phone: Endocrinology Comment on above: Insulin Start: 05-21-2024 End: 05-21-2024 Emergency department patient visit Reza Dyer DO Work Phone: [facility] Comment on above: Abdominal pain durin g in first trimester ([facility]) (Primary Dx) Start: 05-20-2024 End: 05-25-2024 Telephone encounter Piper Julian MD Work Phone: OB/Gynecology Comment on above: Blood Sugar Reading Start: 05-17-2024 End: 05-17-2024 ambulatory Kelsy Guillermo DO Work Phone: Endocrinology Comment on above: Insulin Start: 05-17-2024 End: 05-17-2024 Telephone encounter Kelsy Guillermo DO Work Phone: Endocrinology Comment on above: Blood Sugar Reading Start: 05-11-2024 End: 05-11-2024 Social Work Ana ARRIETA Navigation Start: 05-10-2024 End: 05-10-2024 Telephone encounter Zayda Parker APRN.[employer] Work Phone: OB/Gynecology Comment on above: Results Start: 05-09-2024 End: 05-09-2024 Telephone encounter Kelsy Lisa Guillermo DO Work Phone: Endocrinology Comment on above: Blood Sugar Reading Start: 05-07-2024 End: 05-07-2024 ambulatory JAMARI BYRNE Facility:[facility] Start: 05-07-2024 End: 05-07-2024 Patient encounter procedure Zayda Erwinjeremiah GARCIASELECT BANKER Work Phone: OB/Gynecology Comment on above: Encounter for superv ision of high risk in first trimester, antepartum (Primary Dx); 7 weeks gestation of ; with uncertain dates in first trimester; Unplanned ; Obesity affecting in first trimester, unspecified obesity type; Lost custody of children; UTI (urinary tract infection) in , antepartum; History of herpes genitalis; H/O macrosomia in infant in prior , currently ; History of polyhydramnios; Pre-existing type 2 diabetes mellitus in in first trimester; History of bipolar disorder; History of recurrent UTI (urinary tract infection); Tobacco smoking complicating in first trimester; History of alcohol abuse; History of asthma; Chromosome abnormality; History of hemorrhage; History of pre-eclampsia; Financial insecurity; History of miscarriage; Vaginal discharge during in first trimester; History of trichomoniasis; Family history of autism; Nausea and vomiting during ; History of depression; Screening for cervical cancer Start: 05-04-2024 End: 05-04-2024 ambulatory [facility] Start: 05-04-2024 End: 05-04-2024 Office outpatient visit 15 minutes Jamari Byrne MD Work Phone: [facility] Comment on above: Bipolar depression ( Multi) (Primary Dx); Hyperglycemia due to diabetes mellitus (Multi); Cigarette nicotine dependence with other nicotine-induced disorder Start: 05-03-2024 End: 05-03-2024 ambulatory JAMARI BYRNE Facility:[facility] Start: 05-03-2024 End: 05-03-2024 Patient encounter procedure Kelsy Guillermo DO Work Phone: Endocrinology Comment on above: Type 2 diabetes lazaro itus complicating , antepartum, first trimester (Primary Dx); Insulin controlled gestational diabetes mellitus (GDM) in first trimester; High-risk , first trimester Start: 05-03-2024 End: 05-07-2024 Telephone encounter Ana Sawyer [employer]ESSRO[employer] WORKER Navigation Comment on above: Social Work Services depression in pregna ncy Start: 04-30-2024 End: 04-30-2024 ambulatory Tee Li RN NURSE [employer] [employer] Comment on above: Blood Sugar Elevatio n (/) Start: 04-28-2024 End: 04-28-2024 Office outpatient visit 25 minutes Joanie Hurtado APRN-[employer] Work Phone: [facility] Comment on above: Bacterial vaginosis (Primary Dx); Less than 8 weeks gestation of ([facility]) Start: 04-28-2024 End: 04-28-2024 ambulatory [facility] Start: 04-23-2024 End: 04-23-2024 Telephone encounter Kelsy Guillermo DO Work Phone: Endocrinology Start: 04-19-2024 End: 04-19-2024 Telephone encounter Zayda Parker APRN.[employer] Work Phone: OB/Gynecology Comment on above: Patient Update (ER v isit) Start: 04-18-2024 End: 04-18-2024 Emergency department patient visit JAMARI BYRNE [facility] Comment on above: Urinary tract infect ion in mother during first trimester of ([facility]) (Primary Dx); Herpes simplex vulvovaginitis Start: 04-17-2024 End: 04-17-2024 ambulatory [facility] Start: 04-14-2024 End: 04-15-2024 Emergency department patient visit [facility] Start: 04-14-2024 End: 04-15-2024 Telephone encounter Nurse Facsimile Operator [facility] Work Phone: Obstetrics/Gynecology Comment on above: Care Coordination Start: 02-26-2024 End: 02-26-2024 ambulatory Shreyas GOODWIN Facility:[facility] Start: 01-23-2024 End: 01-23-2024 Office outpatient visit 15 minutes Jamari Byrne MD Work Phone: [facility] Comment on above: Exercise-induced ast hma ([facility]-HCC) (Primary Dx); Hyperglycemia due to diabetes mellitus (Multi); Bipolar depression (Multi); Necrobiosis lipoidica Start: 01-23-2024 End: 01-23-2024 ambulatory [facility] Start: 12-25-2023 End: 12-25-2023 Office outpatient visit 15 minutes Jamari Byrne MD Work Phone: [facility] Comment on above: Necrobiosis lipoidic a (Primary Dx); Hyperglycemia due to diabetes mellitus (Multi) Start: 12-25-2023 End: 12-25-2023 ambulatory [facility] Start: 12-16-2023 End: 12-16-2023 ambulatory [facility] Start: 09-15-2023 End: 09-15-2023 Office outpatient visit 25 minutes Jamari Byrne MD Work Phone: [facility] Comment on above: Sebaceous cyst (Prim stephen Dx); Hyperglycemia due to diabetes mellitus ([facility]/HCC); Exercise-induced asthma Start: 09-15-2023 End: 09-15-2023 ambulatory [facility] Start: 08-19-2023 End: 08-19-2023 Patient encounter procedure Mary GOODWIN Work Phone: [facility] Comment on above: Pain, dental (Primar y Dx) Start: 07-10-2023 End: 07-10-2023 Office outpatient visit 15 minutes Jamari Byrne MD Work Phone: [facility] Comment on above: Necrobiosis lipoidic a (Primary Dx); Hyperglycemia due to diabetes mellitus ([facility]) Start: 05-09-2023 End: 05-09-2023 Office outpatient visit 15 minutes Jamari Byrne MD Work Phone: [facility] Comment on above: Hyperglycemia due to diabetes mellitus ([facility]) Start: 03-17-2023 End: 03-17-2023 Office outpatient visit 15 minutes Jamari Byrne MD Work Phone: [facility] Comment on above: Exercise-induced ast hma (Primary Dx); Hyperglycemia due to diabetes mellitus ([facility]) Start: 12-13-2022 End: 12-13-2022 Office outpatient visit 25 minutes Jamari Byrne MD Work Phone: [facility] Comment on above: Hyperglycemia due to diabetes mellitus ([facility]) Start: 11-27-2022 ambulatory MD JEANIE SUTTON Facility:[id number] Start: 08-17-2022 End: 08-17-2022 ambulatory MARSHALL BROWN [facility] Start: 08-17-2022 End: 08-17-2022 Office outpatient visit 25 minutes Lazara Jon DO Work Phone: [facility] Comment on above: Yeast vaginitis (Verito tee Dx); Late menses; Vaginal discharge Start: 05-24-2022 Office outpatient vi sit 15 minutes Jamari Byrne Work Phone: [facility] Work Phone: Start: 05-24-[address] Jamari Burrell Facility:[id number] Start: 02-22-[address] Jamari Burrell Facility:[id number] Start: 01-04-2022 Office outpatient vi sit 10 minutes Jamari Byrne Work Phone: [facility] Work Phone: Start: 01-04-2022 ambulatory Elie Collins Facility: [id number] Start: 12-25-2021 Office outpatient vi sit 15 minutes Jamari Byrne Work Phone: [place] [id number] [place] Work Phone: Start: 12-25-2021 ambulatory MD JEANIE NAYAK CIA SUTTON Facility:[id number] Start: 12-17-2021 Office outpatient vi sit 15 minutes Jamari Alemaner Work Phone: [place] [id number] [place] Work Phone: Start: 12-17-2021 ambulatory MD JEANIE NAYAK CIA SUTTON Facility:[id number] Start: 12-10-2021 Chart Update Jamari L Robbie r Work Phone: [place] [phone] [place] Work Phone: Start: 11-27-2021 Chart Update Jamari L Robbie r Work Phone: [place] [phone] [place] Work Phone: Start: 11-26-2021 Initial preventive medicine new pt age 18-39yrs Jamari Gonzalez Chavez Work Phone: [place] [phone] [place] Work Phone: Start: 11-13-2021 AUDIT Jamari L Robbie r Work Phone: [facility] Work Phone: Start: 08-03-2021 End: 08-04-2021 ambulatory KATIANA Diehl [facility] Start: 07-03-2021 AUDIT Rich Gonzalez Oberha user Work Phone: [facility] Work Phone: Start: 05-29-2021 AUDIT Rich L Oberha user Work Phone: [facility] Work Phone: Start: 01-04-2021 Office outpatient vi sit 25 minutes Rich Galavizhausnoman Work Phone: [facility] Work Phone: Start: 12-26-2020 AUDIT Rich L Oberha user Work Phone: [facility] Work Phone: Start: 11-16-2020 AUDIT Rich White user Work Phone: [facility] Work Phone: Start: 11-02-2020 Office outpatient vi sit 25 minutes Rich Galavizlalonoman Work Phone: [facility] Work Phone: Start: 10-23-2020 End: 10-24-2020 Emergency department patient visit Epifanio Sorensen [facility] Start: 08-24-2020 End: 08-24-2020 Orders Only Tessa Peralta Work Phone: [facility] Start: 07-19-2020 End: 07-20-2020 Patient encounter procedure [facility] Start: 07-19-2020 End: 07-19-2020 Subsequent hospital visit by physician Srini Medina Work Phone: [facility] EEG Comment on above: Seizure (HCC) Start: 07-05-2020 End: 07-05-2020 Patient encounter procedure [facility] Start: 03-21-2020 End: 03-22-2020 Patient encounter procedure [facility] Start: 03-21-2020 End: 03-21-2020 Subsequent hospital visit by physician Maty Chavez Work Phone: [facility] Sleep Lab Comment on above: MG (obstructive sle ep apnea) Start: 03-17-2020 End: 03-17-2020 Patient encounter procedure MATY CHAVEZ [facility] Start: 01-11-2020 Patient encounter procedure Rich Galavizlalonoman [facility] Work Phone: Start: 12-14-2019 Patient encounter procedure Rich Galavizbilly [facility] Work Phone: Start: 12-08-2019 End: 12-12-2019 Patient encounter procedure [facility] Start: 12-08-2019 End: 12-08-2019 Office outpatient new 45 minutes Srini Medina Work Phone: [facility] Comment on above: Seizure (HCC) Start: 12-07-2019 Patient encounter procedure VERONA HILLIARD [facility] Start: 11-09-2019 Patient encounter procedure Rihc Ng [facility] Work Phone: Start: 10-21-2019 Patient encounter procedure Rich Ng [facility] Work Phone: Start: 09-29-2019 Patient encounter procedure Rich Ng [facility] Work Phone: Start: 09-27-2019 Patient encounter procedure Rich Ng [facility] Work Phone: Start: 05-19-2019 Patient encounter procedure Juno Blackburn [facility] [address] Work Phone: Start: 05-13-2019 Patient encounter procedure Juno Blackburn [facility] [address] Work Phone: Start: 03-21-2019 End: 03-21-2019 Emergency department patient visit Kelsey Devinelloh Work Phone: [facility] Emergency Department Comment on above: Abdominal cramps (Pr imary Dx); Nausea Start: 03-11-2019 End: 03-11-2019 Emergency department patient visit Charlie Cannon Work Phone: [facility] Emergency Department Comment on above: Anxiety (Primary Dx) Start: 02-10-2019 End: 02-10-2019 Emergency department patient visit Lloyd Quiles Work Phone: [facility] Emergency Department Comment on above: 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) Start: 10-06-2018 End: 10-07-2018 Emergency department patient visit Kelsey Jerome Pat Work Phone: [facility] Emergency Department Comment on above: Viral upper respirat ory infection (Primary Dx) Start: 10-04-2018 End: 10-05-2018 Emergency department patient visit David Wilson Work Phone: [facility] Emergency Department Comment on above: Hyperglycemia (Prima ry Dx); Diabetes mellitus due to underlying condition with hyperosmolarity 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, without long-term current use of insulin (HCC) Start: 09-12-2018 End: 09-12-2018 Emergency department patient visit Verona Hilliard [facility] Emergency Department Start: 07-16-2018 End: 07-16-2018 Emergency department patient visit Kelsey Olmosrebecca Stewart Facility:[facility] Start: 02-01-2018 End: 02-02-2018 Emergency department patient visit Elie Hernadez Facility:[facility] Start: 01-23-2018 Emergency department patient visit FABIO HWAK [facility] Start: 12-14-2017 End: 12-14-2017 Emergency department patient visit MILLY SINCLAIR Facility: Start: 11-30-2017 End: 11-30-2017 Emergency department patient visit PCP Unknown Physician [facility] Start: 11-21-2017 End: 11-21-2017 Ambulatory KADE VILLALOBOS Facility:[facility] Start: 11-18-2017 End: 11-19-2017 Patient encounter procedure [facility] Start: 11-15-2017 End: 11-15-2017 Emergency department patient visit VERONA HILLIARD Facility:[facility] Start: 10-09-2017 End: 10-09-2017 Emergency department patient visit VERONAHENNY HILLIARD [facility] Start: 09-28-2017 End: 09-28-2017 Emergency department patient visit VERONAHENNY HILLIARD Facility:[facility] Start: 09-18-2017 End: 09-18-2017 Emergency department patient visit JOSIE HERNANDEZ Facility:[facility] Start: 07-03-2017 End: 07-03-2017 Patient encounter procedure [facility] Menarche Rich Lopez er Work Phone: [facility] Work Phone: Comment on above: AGE 15; Procedures Date Procedure Procedure Detail Performing Clinician Start: 12-06-2024 biophysical pr ofile non-stress testing Piper Julian MD Work Phone: Start: 12-02-2024 Urnls dip stick/tabl et rgnt non-auto w/o micrscp Keshav Loving MD Work Phone: Start: 11-30-2024 biophysical pr ofile non-stress testing Piper Julian MD Work Phone: Start: 11-25-2024 Urnls dip stick/tabl et rgnt non-auto w/o micrscp William Gramajo MD Work Phone: Start: 11-22-2024 biophysical pr ofile non-stress testing Piper Julian MD Work Phone: Start: 11-15-2024 Urnls dip stick/tabl et reagent auto microscopy Dr. aJmari Byrne MD Work Phone: Start: 11-15-2024 Urnls dip stick/tabl et rgnt non-auto w/o micrscp Keshav Loving MD Work Phone: Start: 11-15-2024 biophysical pr ofile non-stress testing Piper Julian MD Work Phone: Start: 11-11-2024 Urnls dip stick/tabl et rgnt non-auto w/o micrscp Krys Kulkarni MD Work Phone: Start: 11-08-2024 biophysical pr ofile non-stress testing Piper Julian MD Work Phone: Start: 11-05-2024 Urnls dip stick/tabl et rgnt non-auto w/o micrscp Krys Kulkarni MD Work Phone: Start: 11-02-2024 Urnls dip stick/tabl et rgnt non-auto w/o micrscp William Gramajo MD Work Phone: Start: 11-02-2024 Us preg uterus after 1st trimest 06/09 gestation William Gramajo MD Work Phone: Start: 10-25-2024 Urnls dip stick/tabl et rgnt non-auto w/o micrscp Keshav Loving MD Work Phone: Start: 10-18-2024 Urnls dip stick/tabl et rgnt non-auto w/o micrscp Keshav Loving MD Work Phone: Start: 10-16-2024 Urnls dip stick/tabl et reagent auto microscopy Dr. Jamari Byrne MD Work Phone: Start: 10-16-[address] Anderson Byrne MD Work Phone: Start: 09-24-2024 Urnls dip stick/tabl et rgnt auto w/o microscopy Leonie Waldron APRN.CN Work Phone: Start: 09-20-2024 Hemoglobin A1c/Hemoglobin.total in Blood Kelsy Gonzalez Radha Work Phone: Start: 09-02-2024 Us preg uterus after 1st trimest 06/09 gestation William Gramajo MD Work Phone: Start: 08-10-2024 Urnls dip stick/tabl et rgnt non-auto w/o micrscp William Gramajo MD Work Phone: Start: 08-10-2024 Us preg uterus after 1st trimest 06/09 gestation William Gramajo MD Work Phone: Start: 07-13-2024 Urnls dip stick/tabl et rgnt non-auto w/o micrscp William Gramajo MD Work Phone: Start: 07-13-2024 Us preg uterus after 1st trimest 06/09 gestation Zayda Parker APRN.[employer] Work Phone: Start: 07-01-2024 Radiologic exam chest 2 views Sixto Myers MD Work Phone: Start: 07-01-2024 Influenza virus A an d B and SARS-CoV-2 (COVID-19) identified in Respiratory specimen by SUMIT with probe detection Sixto Myers MD Work Phone: Start: 06-15-2024 Us nuchal kraus slucency 1st gestation Zayda Parker APRN.[employer] Work Phone: Start: 06-07-2024 Hemoglobin A1c/Hemoglobin.total in Blood Kelsy Guillermo DO Work Phone: Start: 05-26-2024 Urnls dip stick/tabl et rgnt non-auto w/o micrscp Krys Kulkarni MD Work Phone: Start: 05-21-2024 Urinalysis complete W Reflex Culture panel - Urine Reza Bradleyderrick DO Work Phone: Start: 05-21-2024 Urnls dip stick/tabl et reagent auto microscopy Reza Bradleyderrick DO Work Phone: Start: 05-21-2024 Comprehensive metabolic panel Reza Dyer DO Work Phone: Start: 05-07-2024 Antibody screen JAMARI BYRNE Comment on above: Order Comment: Speci men Type: BLOOD SPECIMENOrdering Facility: [facility] Address: [address] [place] [address] Performed By: #### T SPN ####CC [facility] BLOOD BANKCLIA [id number] [place] [address] [place] Start: 05-07-2024 Us uterus l imited 1/> fetuses Zayda Parker APRN.[employer] Work Phone: Start: 05-07-2024 Microscopic observat ion [Identifier] in Cervix by Cyto stain Reza Dyer DO Work Phone: Start: 05-03-2024 Hemoglobin A1c/Hemoglobin.total in Blood Kelsy Guillermo DO Work Phone: Start: 04-18-2024 Gonadotropin chorion ic quantitative Angy Lynne HOSPITAL STAFF PHARMACIST-[employer] Work Phone: Start: 04-18-2024 Urinalysis microscop ic panel - Urine Qualitative by Automated Angy Lynne HOSPITAL STAFF PHARMACIST-[employer] Work Phone: Start: 04-18-2024 End: 04-18-2024 Iadna chlamydia trachomatis amplified probe tq Angy Staples Guera HOSPITAL STAFF PHARMACIST-[employer] Work Phone: Start: 04-18-2024 Urine test visual color cmprsn meths Angy Lynne HOSPITAL STAFF PHARMACIST-[employer] Work Phone: Start: 04-15-2024 Urinalysis MILLY Iraheta Comment on above: Result Comment: URIN ALYSIS Performed By: #### [id number] #### [facility],[address] [place] [address] Start: 09-15-2023 Basic metabolic 2000 panel - Serum or Plasma JAMARI BYRNE Start: 09-15-2023 Hemoglobin A1c/Hemoglobin.total in Blood JAMARI BYRNE Start: 08-17-2022 Urine test visual color cmprsn meths Lazara Jon DO Work Phone: Start: 11-26-2021 Microscopic observat ion [Identifier] in Cervix by Cyto stain Jamari Byrne MD Work Phone: Start: 08-03-2021 Microalbumin [Mass/v olume] in Urine by Test strip Lazara Jon DO Work Phone: Start: 07-19-2020 Electroencephalogram w/rec awake&drowsy Srini Medina Work Phone: Start: 10-21-2019 CT Head without Contrast Rich Hernandez Start: 10-21-2019 Localize cerebral se izure cptr portable eeg Rich Hernandez Start: 09-27-2019 Basic metabolic 1998 panel - Serum or Plasma Rich Oberhauser Start: 09-27-2019 Blood count complete auto&auto difrntl wbc Rich Oberhauser Start: 09-27-2019 Gonadotropin chorion ic quantitative Rich Oberhauser Start: 09-27-2019 Hemoglobin glycosylated a1c Rich Obnomanhauser Start: 09-27-2019 TSH WITH REFLEX TO F REE T4 IF ABNORMAL Rich Obnadirer Start: 05-13-2019 Gonadotropin chorion ic quantitative Juno Subiaco Start: 03-22-2019 Choriogonadotropin.b eta subunit ( test) [Presence] in Serum or Plasma Claude Lind Egal Work Phone: Start: 03-22-2019 Urinalysis Claude mckee Egal Work Phone: Start: 03-11-2019 Ethanol [Mass/volume ] in Serum or Plasma Charlie Cannon Work Phone: Start: 03-11-2019 LAVENDER TOP Charlie Martinez l Work Phone: Start: 03-11-2019 LIGHT BLUE TOP Charlie Pa tel Work Phone: Start: 03-11-2019 LIGHT GREEN TOP Charlie P atel Work Phone: Start: 03-11-2019 MINT GREEN TOP Charlie Pa tel Work Phone: Start: 03-11-2019 RAINBOW DRAW Charlie Martinez l Work Phone: Start: 03-11-2019 Choriogonadotropin ( test) [Presence] in Urine Charlie Cannon Work Phone: Start: 03-11-2019 Drugs of abuse urine screening test Charlie Cannon Work Phone: Start: 03-11-2019 Urinalysis Charlie Martinez l Work Phone: Start: 02-22-2019 Microalbumin [Mass/v olume] in Urine by Test strip Charlie Cannon Start: 02-10-2019 Choriogonadotropin ( test) [Presence] in Urine Lloyd Whitfield [employer] Work Phone: Start: 02-10-2019 Drugs of abuse urine screening test Lloyd Whitfield [employer] Work Phone: Start: 02-10-2019 Ethanol [Mass/volume ] in Serum or Plasma Lloyd Whitfield [employer] Work Phone: Start: 02-10-2019 LAVENDER TOP Lolydjavi Mcgee g [employer] Work Phone: Start: 02-10-2019 LIGHT BLUE TOP Lloyd Quiles Work Phone: Start: 02-10-2019 MINT GREEN TOP Lloyd Quiles Work Phone: Start: 02-10-2019 RAINBOW DRAW Lloyd Quiles Work Phone: Start: 10-07-2018 Standard chest X-ray Christopher Stewart Work Phone: Start: 10-07-2018 Choriogonadotropin ( test) [Presence] in Urine Kelsey Stewart Work Phone: Start: 10-07-2018 Urinalysis Kelsey Stewart Work Phone: Start: 10-07-2018 Glucose [Mass/volume] in Blood [facility] Start: 10-05-2018 End: 10-05-2018 Glucose [Mass/volume] in Blood [facility] Start: 10-05-2018 Glucose [Mass/volume] in Blood [facility] Start: 10-05-2018 Evaluation of arteri al blood gas studies David Wilson Work Phone: Start: 10-05-2018 Standard chest X-ray jerad GonzalezJuno Sabillonbenji Work Phone: Start: 10-05-2018 Beta hydroxybutyrate [Moles/volume] in Serum or Plasma Hailey LJuno Paiz Work Phone: Start: 10-05-2018 Complete blood count with white cell differential, automated Haileychristian Pisanoholden Work Phone: Start: 10-05-2018 Complete blood count with white cell differential, manual Hailey Pisanoashleybenji Work Phone: Start: 10-05-2018 Comprehensive metabo lic 2000 panel - Serum or Plasma Haileychristian Paiz Work Phone: Start: 10-05-2018 D-dimer assay, quantitative Hailey Paiz Work Phone: Start: 10-05-2018 LIGHT BLUE TOP Daisy Paiz Work Phone: Start: 10-05-2018 LIGHT GREEN TOP Miguel Paiz Work Phone: Start: 10-05-2018 RAINBOW DRAW Hailey Paiz Work Phone: Start: 10-05-2018 OBTAIN ARTERIAL BLOOD GASES Hailey Paiz Work Phone: Start: 10-05-2018 Choriogonadotropin ( test) [Presence] in Urine Hailey Paiz Work Phone: Start: 10-05-2018 Urinalysis Hailey Paiz Work Phone: Start: 10-04-2018 Glucose [Mass/volume] in Blood [facility] Start: 09-13-2018 Glucose blood reagent strip June Andrade [employer] Work Phone: Start: 09-13-2018 CBC, EDIF, PLATELET Clara zainab Andrade [employer] Work Phone: Start: 09-13-2018 Choriogonadotropin ( test) [Presence] in Serum or Plasma June A [employer] Work Phone: Start: 09-13-2018 Comprehensive metabolic panel June A [employer] Work Phone: Start: 09-13-2018 Choriogonadotropin ( test) [Presence] in Urine June A [employer] Work Phone: Start: 09-13-2018 Urinalysis microscopic only June Raymond [employer] Work Phone: Start: 09-13-2018 URINALYSIS, MACRO [employer] Work Phone: Start: 05-06-2016 Microscopic observat ion [Identifier] in Cervix by Cyto stain David Wilson Start: 02-27-2016 Microalbumin [Mass/v olume] in Urine by Test strip David Blackburn Comment on above: 2014; Dilation and curettage Rich Ng Plan of Treatment Date Care Activity Detail Author Start: 2070 RSV High Risk: (Elde rly (60+) or Population) (1 - 1-dose 75+ series) RSV High Risk: (Elderly (60+) or Population) (1 - 1-dose 75+ series) [facility] Start: 2045 Zoster Vaccines (1 o f 2) Zoster Vaccines (1 of 2) [facility] Start: 10-04-2034 Urine microalbumin profile DTaP,Tdap,Td Vaccine (8 - Td or Tdap) [facility] Start: 01-20-2030 Tetanus vaccination Tetanus: Every 1 0yrs [facility] Start: 05-07-2027 Screening for malign ant neoplasm of cervix [facility] Start: 07-16-2026 Glaucoma screening Diabetes: R etinopathy Screening [facility] Start: 03-22-2025 Hemoglobin A1c measurement HbA1C [facility] Start: 03-09-2025 End: 03-09-2025 Patient encounter procedure 03/09/2025 9:20 AM EDT [facility] [address] [facility] [address] [place] [phone] Jamari Byrne MD [address] [facility] [place] [address] [place] [address] [facility] Start: 02-13-2025 Glaucoma screening Diabetes: R etinopathy Screening [facility] Start: 02-07-2025 Influenza vaccination Influenz a Vaccine (Season Ended) [facility] Start: 01-20-2025 End: 01-20-2025 Follow-up encounter 01/20/2025 2:00 PM EDT Education Endocrinology [address] [place] [address] [place] [address] [place] [address] follow up Endocrinology Comment on above: follow up Start: 01-20-2025 End: 01-20-2025 Patient encounter procedure 01/20/2025 11:00 AM EDT Office Visit Endocrinology [address] [place] [address] Kelsy Guillermo, DO [address] [place] [address] see me for post f/u Jan 20 (virtual or in person) Endocrinology Comment on above: see me for post part um f/u Jan 20 (virtual or in person) Start: 12-16-2024 End: 12-16-2024 Patient encounter procedure OB/Gynecology Comment on above: NST OB/NST Start: 12-13-2024 End: 12-13-2024 Patient encounter procedure [facility]aternal Medicine Comment on above: BPP OB/BPP Start: 12-09-2024 End: 12-09-2024 Patient encounter procedure OB/Gynecology Comment on above: NST OB/NST Start: 12-06-2024 End: 12-06-2024 Patient encounter procedure [facility] Comment on above: BPP OB/BPP Start: 12-02-2024 End: 12-02-2024 Patient encounter procedure OB/Gynecology Comment on above: NST OB/NST Start: 11-30-2024 End: 11-30-2024 Patient encounter procedure 11/30/2024 3:30 PM EDT Routine Office Visit Maternal Medicine [address] [place] [address] GROWTH/BPP/MFM [facility]aternal Medicine Comment on above: GROWTH/BPP/MFM Start: 11-26-2024 Screening for malign ant neoplasm of [facility] Start: 11-25-2024 End: 11-25-2024 Patient encounter procedure OB/Gynecology Comment on above: NST OB/NST Start: 11-22-2024 End: 11-22-2024 Patient encounter procedure 11/22/2024 9:00 AM EDT Routine Office Visit Maternal Medicine [address] [place] [address] BPP Maternal Medicine Comment on above: BPP Start: 11-18-2024 End: 11-18-2024 Patient encounter procedure OB/Gynecology Comment on above: NST OB/NST Start: 11-15-2024 Nonstress test [facility] Start: 11-15-2024 Obstetric monitoring [facility] Start: 11-15-2024 Vital signs measurements [facility] Start: 11-15-2024 End: 11-15-2024 [facility] Start: 11-15-2024 Bacteria identified in Urine by Culture Urine Culture [facility] Start: 11-15-2024 End: 11-15-2024 Patient encounter procedure Maternal Medicine Comment on above: BPP OB/BPP Start: 11-15-2024 Patient discharge [facility] Start: 11-11-2024 End: 11-11-2024 Patient encounter procedure OB/Gynecology Comment on above: NST NST/OB Start: 11-08-2024 End: 11-08-2024 Patient encounter procedure 11/08/2024 9:00 AM EDT Routine Office Visit Maternal Medicine [address] [place] [address] BPP Maternal Medicine Comment on above: BPP Start: 11-05-2024 End: 02-04-2025 BILE ACIDS FRACT BLD [facility] Comment on above: Expected: 11/05/2024 , Expires: 02/04/2025 Start: 11-05-2024 End: 02-04-2025 BILE ACIDS, TOTAL [facility] Work Phone: Comment on above: Expected: 11/05/2024 , Expires: 02/04/2025 Start: 11-05-2024 End: 11-05-2024 Patient encounter procedure OB/Gynecology Comment on above: NST/OB NST/OB - encourage o ptho f/u JG-NST/OB Start: 11-04-2024 End: 11-04-2024 Patient encounter procedure 11/04/2024 2:20 PM EDT [facility] [address] [facility] [address] [place] [address] Jamari Byrne MD [address] [facility] [place] [address] [place] [address] [facility] Start: 11-04-2024 End: 11-04-2024 Follow-up encounter 11/04/2024 11:00 AM EDT Education Endocrinology [address] [place], [place] [id number] [place] [address] [place] [address] follow up on 11/04/24 at 11 am. Endocrinology Comment on above: follow up on 11/04/24 at 11 am. Start: 11-04-2024 End: 11-04-2024 Patient encounter procedure Endocrinology Comment on above: Return in about 6 we eks (around 11/01/2024). M-Power consult with Alicia Start: 11-02-2024 End: 11-02-2024 Patient encounter procedure [facility]aternal Medicine Comment on above: BPP OB Routine OB Routine/BPP Start: 10-28-2024 End: 10-28-2024 Patient encounter procedure 10/28/2024 10:00 AM EDT Routine Office Visit Maternal Medicine [address] [place] [address] BPP Maternal Medicine Comment on above: BPP Start: 10-25-2024 End: 01-24-2025 PARVOVIRUS B19 IGG+M [facility] Work Phone: Comment on above: Expected: 10/25/2024 , Expires: 01/24/2025 Start: 10-25-2024 End: 10-25-2024 Patient encounter procedure OB/Gynecology Comment on above: NST OB Routine with EKG Start: 10-18-2024 End: 10-18-2024 Patient encounter procedure 10/18/2024 1:50 PM EDT Routine Office Visit OB/Gynecology [address] [place] [address] Keshav Loving MD [address] [place] [address] OB Routine OB/Gynecology Comment on above: OB Routine Start: 10-16-2024 [facility] Start: 10-16-2024 Bacteria identified in Urine by Culture Urine Culture [facility] Start: 10-16-2024 Iv infusion therapy prophylaxis/dx ea hour THER/PROPH/DIAG IV INF ADDON [facility] Start: 10-16-2024 Iv infusion therapy/prophylaxis /dx 1st to 1 hr THER/PROPH/DIAG IV INF INIT [facility] Start: 10-16-2024 Patient discharge [facility] Start: 10-12-2024 End: 10-12-2024 ambulatory 10/12/2024 10:00 AM EDT Procedure Pediatric Cardiology [address] [place] [address] Pamela Haskins MD [address] [place], [place] [id number] FU echo Pediatric Cardiology Comment on above: FU echo Start: 10-12-2024 End: 10-12-2024 Patient encounter procedure 10/12/2024 10:00 AM EDT Office Visit Pediatric Cardiology [address] [place] [address] FU echo Pediatric Cardiology Comment on above: FU echo Start: 10-04-2024 End: 01-03-2025 Bacteria identified in Urine by Culture [facility] Comment on above: Expected: 10/04/2024 , Expires: 01/03/2025 Start: 10-04-2024 End: 01-03-2025 Protein/Creatinine [Mass Ratio] in Urine [facility] Comment on above: Expected: 10/04/2024 , Expires: 01/03/2025 Start: 10-04-2024 End: 10-04-2024 Patient encounter procedure Maternal Medicine Comment on above: Gr=owth OB Start: 09-24-2024 End: 09-24-2024 Patient encounter procedure 09/24/2024 3:15 PM EDT Routine Office Visit OB/Gynecology [address] [place] [address] Leonie Waldron APRN.CN [address] [place] [address] Supervision of high risk in second trimester (HCC) (Primary Dx); 27 weeks gestation of (HCC); Burning with urination; Vaginal discharge OB/Gynecology Comment on above: Supervision of high risk in second trimester (HCC) (Primary Dx); 27 weeks gestation of (HCC); Burning with urination; Vaginal discharge Start: 09-24-2024 Obstetric monitoring [facility] Start: 09-24-2024 [facility] Start: 09-24-2024 Vital signs measurements [facility] Start: 09-24-2024 Patient discharge [facility] Start: 09-20-2024 End: 09-20-2024 Patient encounter procedure 09/20/2024 1:40 PM EDT Office Visit Endocrinology [address] [place], [place] [id number] Kelsy Guillermo, [address] [place], [place] [id number] see me in 7 weeks for f/u. Endocrinology Comment on above: see me in 7 weeks fo r f/u. Start: 09-07-2024 End: 09-07-2024 Patient encounter procedure Maternal Medicine Comment on above: Growth OB Routine Start: 09-05-2024 Hemoglobin A1c measurement Diabetes: Hemoglobin A1C [facility] Start: 09-02-2024 End: 09-02-2024 Patient encounter procedure 09/02/2024 11:00 AM EDT Routine Office Visit Maternal Medicine [address] [place], [place] [id number] Growth [facility]aternal Medicine Comment on above: Growth Start: 08-24-2024 End: 08-24-2024 ambulatory 08/24/2024 1:00 PM EDT Procedure Pediatric Cardiology [address] [place] [address] Pamela Haskins MD [address] [place] [address] Pre-existing type 2 diabetes mellitus in in first trimester [O24.111] Pediatric Cardiology Comment on above: Pre-existing type 2 diabetes mellitus in in first trimester [O24.111] Start: 08-24-2024 End: 08-24-2024 Patient encounter procedure 08/24/2024 1:00 PM EDT Office Visit Pediatric Cardiology [address] [place] [address] Pre-existing type 2 diabetes mellitus in in first trimester [O24.111] Pediatric Cardiology Comment on above: Pre-existing type 2 diabetes mellitus in in first trimester [O24.111] Start: 08-10-2024 End: 08-10-2024 Patient encounter procedure Maternal Medicine Comment on above: Anatomy Scan anatomy / mfm OB Routine Start: 08-03-2024 Hemoglobin A1c measurement Diabetes: Hemoglobin A1C [facility] Start: 07-26-2024 End: 07-26-2024 Patient encounter procedure 07/26/2024 2:00 PM EST Office Visit Endocrinology [address] [place] [address] Kelsy Guillermo, DO [address] [place], [place] [id number] 8 weeks v/u Endocrinology Comment on above: 8 weeks v/u Start: 07-13-2024 End: 07-13-2025 OBSTETRIC ULTRASOUND WHI OBSTETRIC ULTRASOUND WHI Anc Imaging Routine Encounter for anatomic survey Expected: 07/13/2024, Expires: 07/13/2025 [facility] Work Phone: Comment on above: Expected: 07/13/2024 , Expires: 07/13/2025 Start: 07-13-2024 End: 07-13-2024 Patient encounter procedure Maternal Medicine Comment on above: Early Anatomy Scan OB Routine Start: 07-12-2024 End: 07-12-2024 Patient encounter procedure 07/12/2024 10:00 AM EST Office Visit OB/Gynecology [address] [place], [place] [id number] Lucy Mariscal APRN.[employer] [address] [place] [address] ANNUAL OB/Gynecology Comment on above: ANNUAL Start: 06-16-2024 End: 06-16-2024 ambulatory 06/16/2024 10:00 AM EST [facility] Endocrinology [address] [place] [address] Carrie Larsen, [place] [address] [place] [address] see wool classer (Carrie Larsen) virtual visit Endocrinology Comment on above: see wool classer (Hiral Larsen) virtual visit Start: 06-15-2024 End: 09-14-2024 Chromosome 21 trisomy [Presence] in Blood or Tissue by Cytogenetics [facility] Work Phone: Comment on above: Expected: 06/15/2024 , Expires: 09/14/2024 Start: 06-15-2024 End: 06-15-2024 Patient encounter procedure Maternal Medicine Comment on above: Nuchal/ Consult to M FM Start: 06-09-2024 Medicare Advantage Annual Wellness Visit Medicare Advantage Annual Wellness Visit [facility] Start: 06-08-2024 End: 06-08-2024 Patient encounter procedure 06/08/2024 1:10 PM EST Routine Office Visit OB/Gynecology [address] [place] [address] Piper Julian MD [address] [place] [address] New Ob LMP 03/13/2024 OB/Gynecology Comment on above: New Ob LMP 03/13/2024 Start: 06-07-2024 End: 06-07-2024 Patient encounter procedure 06/07/2024 2:20 PM EST Office Visit Endocrinology [address] [place] [address] Kelsy Guillermo, DO [address] [place], [place] [phone] see me in 4 weeks (virtual visit) Endocrinology Comment on above: see me in 4 weeks (v irtual visit) Start: 05-26-2024 End: 05-26-2024 Patient encounter procedure 05/26/2024 10:10 AM EST Routine Office Visit OB/Gynecology [address] [place] [address] Krys Kulkarni MD [address] [place] [address] Previous MFM records in JG chart prep folder OB/Gynecology Comment on above: Previous MFM records in JG chart prep folder Start: 05-07-2024 End: 08-06-2024 ANEMIA REFLEX PANEL [facility] Work Phone: Comment on above: Expected: 05/07/2024 , Expires: 08/06/2024 Start: 05-07-2024 End: 08-06-2024 CARRIER SCREEN, STANDARD [facility] Comment on above: Expected: 05/07/2024 , Expires: 08/06/2024 Start: 05-07-2024 End: 08-06-2024 Hepatitis B virus surface Ag [Presence] in Serum [facility] Comment on above: Expected: 05/07/2024 , Expires: 08/06/2024 Start: 05-07-2024 End: 08-06-2024 Hepatitis C virus Ab [Presence] in Serum [facility] Comment on above: Expected: 05/07/2024 , Expires: 08/06/2024 Start: 05-07-2024 End: 08-06-2024 HIV 1+2 Ab [Presence] in Serum or Plasma by Immunoassay [facility] Comment on above: Expected: 05/07/2024 , Expires: 08/06/2024 Start: 05-07-2024 End: 05-07-2025 NUCHAL TRANSLUCENCY WHI NUCHAL TRANSLUCENCY WHI Anc Imaging Routine with uncertain dates in first trimester Expected: 05/07/2024, Expires: 05/07/2025 [facility] Comment on above: Expected: 05/07/2024 , Expires: 05/07/2025 Start: 05-07-2024 End: 05-07-2025 OBSTETRIC ULTRASOUND WHI OBSTETRIC ULTRASOUND WHI Anc Imaging Routine with uncertain dates in first trimester Expected: 05/07/2024, Expires: 05/07/2025 [facility] Comment on above: Expected: 05/07/2024 , Expires: 05/07/2025 Start: 05-07-2024 End: 08-06-2024 Protein/Creatinine [Mass Ratio] in Urine [facility] Comment on above: Expected: 05/07/2024 , Expires: 08/06/2024 Start: 05-07-2024 End: 08-06-2024 RUBELLA IGG ANTIBODY [facility] Comment on above: Expected: 05/07/2024 , Expires: 08/06/2024 Start: 05-07-2024 End: 08-06-2024 SYPHILIS TREPONEMAL W/REFLEX [facility] Comment on above: Expected: 05/07/2024 , Expires: 08/06/2024 Start: 05-07-2024 End: 08-06-2024 Thyrotropin [Units/volume] in Serum or Plasma [facility] Comment on above: Expected: 05/07/2024 , Expires: 08/06/2024 Start: 05-07-2024 End: 08-06-2024 TYPE + SCREEN [facility] Comment on above: Expected: 05/07/2024 , Expires: 08/06/2024 Start: 05-07-2024 End: 05-07-2024 Patient encounter procedure OB/Gynecology Comment on above: New Ob LMP 03/13/2024 Start: 05-04-2024 End: 05-04-2024 Patient encounter procedure 05/04/2024 2:20 PM EST [facility] [address] [place] [phone] Jamari Byrne MD [address] [facility] [place] [address] [place] [address] [facility] Start: 05-03-2024 End: 05-03-2024 Patient encounter procedure 05/03/2024 2:40 PM EST Office Visit Endocrinology [address] [place] [address] Kelsy Guillermo, [address] [place] [address] Insulin controlled gestational diabetes mellitus (GDM) in first trimester [O24.414] Endocrinology Comment on above: Insulin controlled g estational diabetes mellitus (GDM) in first trimester [O24.414] Start: 03-17-2024 Hemoglobin A1c measurement Diabetes: Hemoglobin A1C [facility] Start: 02-14-2024 Glaucoma screening Diabetes: R etinopathy Screening [facility] Start: 02-08-2024 Covid-19 Vaccine () Covid-19 Vaccine () [facility] Start: 02-08-2024 Influenza vaccination [facility] Start: 01-23-2024 End: 04-24-2024 Hemoglobin A1c/Hemoglobin.total in Blood Hemoglobin A1C Lab Routine Hyperglycemia due to diabetes mellitus (Multi) Expected: 01/23/2024 (Approximate), Expires: 04/24/2024 [facility] Area Work Phone: Comment on above: Expected: 01/23/2024 (Approximate), Expires: 04/24/2024 Start: 12-24-2023 End: 12-24-2023 Patient encounter procedure 12/24/2023 11:20 AM EDT [facility] [address] [facility] [address] [place] [address] Jamari Byrne MD [address] [facility], [place] [address] [facility] Start: 09-15-2023 End: 09-15-2023 Patient encounter procedure 09/15/2023 10:20 AM EDT Office [facility] [address] [place] [address] [place] [address] Jamari Byrne MD [address] [facility], [facility] [address] [place] [address] [facility] Start: 09-08-2023 End: 07-10-2024 Basic metabolic 2000 panel - Serum or Plasma Basic Metabolic Panel Lab Routine Hyperglycemia due to diabetes mellitus (CMS/HCC) Expected: 09/08/2023 (Approximate), Expires: 07/10/2024 [facility] Service Area Work Phone: Comment on above: Expected: 09/08/2023 (Approximate), Expires: 07/10/2024 Start: 09-08-2023 End: 07-10-2024 Hemoglobin A1c/Hemoglobin.total in Blood Hemoglobin A1C Lab Routine Hyperglycemia due to diabetes mellitus (CMS/HCC) Expected: 09/08/2023 (Approximate), Expires: 07/10/2024 [facility] Work Phone: Comment on above: Expected: 09/08/2023 (Approximate), Expires: 07/10/2024 Start: 07-10-2023 End: 05-09-2024 Basic metabolic 2000 panel - Serum or Plasma Basic Metabolic Panel Lab Routine Hyperglycemia due to diabetes mellitus (CMS/HCC) Expected: 07/10/2023, Expires: 05/09/2024 [facility] Work Phone: Comment on above: Expected: 07/10/2023 , Expires: 05/09/2024 Start: 07-10-2023 End: 05-09-2024 Hemoglobin A1c/Hemoglobin.total in Blood Hemoglobin A1C Lab Routine Hyperglycemia due to diabetes mellitus (CMS/HCC) Expected: 07/10/2023 (Approximate), Expires: 05/09/2024 [facility] Work Phone: Comment on above: Expected: 07/10/2023 (Approximate), Expires: 05/09/2024 Start: 07-10-2023 End: 07-10-2023 Patient encounter procedure 07/10/2023 10:20 AM EST Office Visit [facility] [address] [place] [address] Jamari Byrne MD [address] [facility] [place] [address] [place] [address] [facility] Start: 06-11-2023 Hemoglobin A1c measurement Diabetes: Hemoglobin A1C [facility] Start: 06-09-2023 Depression Assessment Depression Ass essment [facility] Start: 04-23-2023 End: 04-23-2023 Patient encounter procedure 04/23/2023 10:20 AM EST Office [facility] [address] [place] [id number] Jamari Byrne MD [address] [facility] [address] [place] [address] [facility] Start: 03-15-2023 End: 12-14-2023 Hemoglobin A1c/Hemoglobin.total in Blood Hemoglobin A1C Lab Routine Hyperglycemia due to diabetes mellitus ([facility]) Expected: 03/15/2023 (Approximate), Expires: 12/14/2023 [facility] Service Area Work Phone: Comment on above: Expected: 03/15/2023 (Approximate), Expires: 12/14/2023 Start: 03-05-2023 Hemoglobin A1c measurement Diabetes: Hemoglobin A1C [facility] Start: 02-08-2023 Ophthalmic examinati on and evaluation Diabetes: Retinopathy Screening [facility] Start: 02-07-2023 Covid-19 Vaccine ( season) Covid-19 Vaccine ( season) [facility] [facility] Start: 02-07-2023 Influenza vaccination Influenz a Vaccine (#1) [facility] Start: 11-27-2022 Patient encounter procedure ANNUAL, Provider: Jeanie Sutton, Status: Humberto, Time: 8:[address] Work Phone: Start: 11-26-2022 History and physical examination, annual for health maintenance Wellness Visit [facility] Start: 08-22-2022 FUV, Provider: Jamari Byrne, Status: Pen, Time: 11:20 AM FUV, Provider: Jamari Byrne, Status: Humberto, Time: 11:20 AM [facility] Work Phone: Start: 08-03-2022 Hepatitis B surface antibody level LDL Cholesterol [facility] Start: 08-03-2022 Urine screening for protein [facility] Start: 02-22-2022 FUV, Provider: Jamari Byrne, Status: Pen, Time: 8:40 AM FUV, Provider: Jamari Byrne, Status: Pen, Time: 8:40 AM [facility] Work Phone: Start: 02-07-2022 Influenza vaccination Sidraenti al Influenza Vaccine (#1) [facility] Start: 12-25-2021 FUV, Provider: Jeanie Sutton, Status: Pen, Time: 8:45 AM FUV, Provider: Jeanie Sutton, Status: Pen, Time: 8:45 AM [facility] Work Phone: Start: 12-17-2021 FUV, Provider: Jeanie Sutton, Status: Pen, Time: 9:15 AM FUV, Provider: Jeanie Sutton, Status: Pen, Time: 9:15 AM [facility] Bandz Work Phone: Start: 10-31-2021 Hemoglobin A1c measurement A1C [facility] Start: 04-05-2021 FUV, Provider: Rich Ng, Status: Pen, Time: 10:20 AM FUV, Provider: Rich Ng, Status: Pen, Time: 10:20 AM [facility] Work Phone: Start: 01-04-2021 FUV, Provider: Rich Ng, Status: Pen, Time: 10:20 AM FUV, Provider: Rich Ng, Status: Pen, Time: 10:20 AM [facility] Work Phone: Start: 12-13-2020 Patient encounter procedure [facility] [place] Start: 11-08-2020 End: 11-08-2020 Office Visit 11/08/2020 Office Visit Neurology Srini Medina MD [address] [place] [address] [address] [phone] [facility] Start: 10-11-2020 Urine microalbumin profile DTaP,Tdap,Td Vaccine (7 - Td or Tdap) [facility] Start: 10-07-2020 Depression Remission Assessment (PHQ9) Depression Remission Assessment (PHQ9) [facility] Start: 02-23-2020 Albumin DL <= 20 mg/ L (U) [Mass/Vol] URINE MICROALBUMIN [facility] Start: 02-23-2020 Hepatitis B screening Urine Albumin:Creatinine Ratio [facility] Start: 02-17-2020 End: 02-17-2020 Office Visit 02/17/2020 Office Visit Neurology Srini Medina MD [address] [place] [id number] [phone] [facility] Start: 02-08-2020 Influenza vaccinatio n given Sequential Influenza Vaccine (#1) [facility] Start: 12-23-2019 Depression Remission Assessment (PHQ9) Depression Remission Assessment (PHQ9) [facility] Start: 10-21-2019 Localize cerebral seizure cptr portable eeg EEG: Ambulatory outpatient [facility] Work Phone: Start: 10-21-2019 CT Head withou t Contrast [facility] Work Phone: Start: 08-23-2019 HbA1c (Bld) [Mass fraction] A1C [facility] Start: 07-09-2019 Screening for malign ant neoplasm of cervix [facility] Start: 05-24-2019 End: 05-24-2019 Office Visit 05/24/2019 Office Visit Primary Care Verona Hilliard MD [address] [place] [address] [phone] [facility] Start: 05-06-2019 Screening for malign ant neoplasm of cervix PAP SMEAR [facility] Start: 02-07-2019 Influenza vaccination INFLUENZ A VACCINE (Season Ended) [facility] Start: 02-07-2019 Influenza vaccinatio n given SEQUENTIAL INFLUENZA VACCINE (#1) [facility] Start: 11-02-2018 HbA1c (Bld) [Mass fraction] A1C [facility] Start: 02-07-2018 Influenza vaccinatio n given SEQUENTIAL INFLUENZA VACCINE (#1) [facility] Start: 02-26-2017 Albumin DL <= 20 mg/ L (U) [Mass/Vol] URINE MICROALBUMIN [facility] Start: 2017 DTaP/Tdap/Td Vaccine s (1 - Tdap) DTaP/Tdap/Td Vaccines (1 - Tdap) [facility] Start: 01-28-2016 Screening for malign ant neoplasm of cervix [facility] Start: 11-22-2014 Pneumococcal vaccination Pneumococcal Vaccine (2 of 2 - PCV) [facility] Start: 2014 Hepatitis A Vaccines (1 of 2 - Risk 2-dose series) Hepatitis A Vaccines (1 of 2 - Risk 2-dose series) [facility] Start: 2014 Hepatitis B Vaccines (1 of 3 - 19+ 3-dose series) Hepatitis B Vaccines (1 of 3 - 19+ 3-dose series) [facility] Start: 2014 Pneumococcal Vaccine : Pediatrics and At-Risk Adult Patients (1 of 2 - PCV) Pneumococcal Vaccine: Pediatrics and At-Risk Adult Patients (1 of 2 - PCV) [facility] Start: 2014 Third diphtheria, tetanus and acellular pertussis (DTaP) vaccination TDAP (ADULT) [facility] Start: 2014 Zoster Vaccines (1 o f 2) Zoster Vaccines (1 of 2) [facility] Start: 2013 Annual PCP Team Lead Janitor andres Disease Visit Annual PCP Team Chronic Disease Visit [facility] Start: 2013 Anxiety Screening Anxiety Screening [facility] Start: 2013 Depression Screening Depression Scre [facility] Start: 2013 Hepatitis C antibody , confirmatory test Hepatitis C Screening [facility] Start: 2013 Hepatitis C screening Hepatitis C Sc reening [facility] Start: 2013 HIV screening HIV Screening [facility] Start: 2013 Tetanus vaccination [facility] Start: 2011 COVID-19 Vaccine (1 of 2) COVID-19 Vaccine (1 of 2) [facility] Start: 2011 Screening for Chlamy clraa trachomatis CHLAMYDIA SCREEN [facility] Start: 2010 HIV screening HIV Screening [facility] Start: 2010 Vaccination for agusto n papillomavirus [facility] Start: 06-09-2009 Tetanus [facility] Start: 01-28-2008 HIV screening HIV SCREENING DISCUSSION [facility] Start: 01-28-2008 Varicella vaccination Varicell a Vaccines (1 of 2 - 13+ 2-dose series) [facility] Start: 2006 Vaccination for agusto n papillomavirus HPV Vaccines (1 - 2-dose series) [facility] Start: 2005 Diabetic foot examination [facility] Start: 2005 Glaucoma screening [facility] Start: 2005 Ophthalmic examinati on and evaluation Ophthalmology Exam [facility] Start: 2001 Pneumococcal Vaccine : Ped or At-Risk (1 - PCV) Pneumococcal Vaccine: Ped or At-Risk (1 - PCV) [facility] Start: 2001 Pneumococcal Vaccine : Pediatrics (0 to 5 Years) and At-Risk Patients (6 to 64 Years) (1 - PCV) Pneumococcal Vaccine: Pediatrics (0 to 5 Years) and At-Risk Patients (6 to 64 Years) (1 - PCV) [facility] Start: 2001 Pneumococcal Vaccine : Pediatrics (0 to 5 Years) and At-Risk Patients (6 to 64 Years) (1 of 2 - PCV) Pneumococcal Vaccine: Pediatrics (0 to 5 Years) and At-Risk Patients (6 to 64 Years) (1 of 2 - PCV) [facility] Start: 01-28-2000 COVID-19 Vaccine (#1) COVID-19 Vacci ne (#1) [facility] Start: 1998 History and physical examination, annual for health maintenance Wellness Visit [facility] Start: 01-28-1996 MMR Vaccines (1 of 1 - Standard series) MMR Vaccines (1 of 1 - Standard series) [facility] Start: 01-28-1996 Varicella vaccination Varicell a Vaccines (1 of 2 - 2-dose childhood series) [facility] Start: 1995 COVID-19 Vaccine (#1) COVID-19 Vacci ne (#1) [facility] Start: 1995 Depression screening using PHQ-9 (Patient Health Questionnaire 9) score DEPRESSION SCREENING (PHQ9) [facility] Start: [address] [facility] Start: 1995 Hepatitis B Vaccines (1 of 3 - 3-dose series) Hepatitis B Vaccines (1 of 3 - 3-dose series) [facility] Start: 1995 Lipid panel Lipid Panel [facility] Start: 1995 Medicare Annual Wellness Visit Medicare Annual Wellness Visit (AWV) [facility] Start: 1995 Screening for Chlamy clara trachomatis Chlamydia Screening [facility] End: 04-18-2024 Bacteria identified in Urine by Culture [facility] Work Phone: Comment on above: Once (Lab) for 1 Occ urrences starting 04/18/2024 until 04/18/2024 Bacteria identified in Urine by Culture URINE CULTURE Microbiology Routine with uncertain dates in first trimester 05/07/2024 10:24 AM EST [facility] Bacteria identified in Urine by Culture BACTERIAL CULTURE, URINE Microbiology Routine Burning with urination 09/24/2024 9:17 AM EDT [facility] Work Phone: BACTERIAL VAGINOSIS NAAT BACTERIAL VAGINOSIS NAAT Lab Routine Vaginal discharge during in first trimester 05/07/2024 10:24 AM [facility] BACTERIAL VAGINOSIS NAAT BACTERIAL VAGINOSIS NAAT Lab Routine Vaginal discharge 09/24/2024 9:17 AM [facility] BACTERIAL VAGINOSIS NAAT BACTERIAL VAGINOSIS NAAT Lab Routine Vaginal itching Ordered: 11/18/2024 [facility] Work Phone: Comment on above: Ordered: 11/18/2024 End: 01-03-2025 BIOPHYSICAL PROFILE US I BIOPHYSICAL PROFILE US I Anc Imaging Routine Supervision of high risk in third trimester ([facility]) Pre-existing type 2 diabetes mellitus in in first trimester ([facility]) Once per week for 10 Occurrences starting 10/05/2024 until 01/03/2025 [facility] Comment on above: Once per week for 10 Occurrences starting 10/05/2024 until 01/03/2025 JOSUÉ/TRICHOMONAS NAAT JOSUÉ/TRICHOMONAS NAAT Lab Routine Vaginal discharge during in first trimester 05/07/2024 10:24 AM [facility] JOSUÉ/TRICHOMONAS NAAT JOSUÉ/TRICHOMONAS NAAT Lab Routine Vaginal discharge 09/24/2024 9:17 AM EDT [facility] JOSUÉ/TRICHOMONAS NAAT JOSUÉ/TRICHOMONAS NAAT Lab Routine Vaginal itching Ordered: 11/18/2024 [facility] Comment on above: Ordered: 11/18/2024 Cast care: wet Wet prep, genita l Microbiology Routine Vaginal discharge Ordered: 08/17/2022 [facility] Work Phone: Comment on above: Ordered: 08/17/2022 End: 12-08-2020 Ceruloplasmin measurement Ceruloplasmin Lab Routine Seizure ([facility]) 1 Occurrences starting 12/08/2019 until 12/08/2020 [facility] Comment on above: 1 Occurrences starti ng 12/08/2019 until 12/08/2020 Ceruloplasmin measurement Ceruloplasmin Lab Routine Seizure ([facility]) 12/08/2019 8:42 AM EDT [facility] Chlamydia trachomati s rRNA assay Chlamydia/GC/Trichomo savannah Amplified RNA Microbiology Routine Vaginal discharge Ordered: 08/17/2022 [facility] Comment on above: Ordered: 08/17/2022 Chlamydia trachomatis+Neisseria gonorrhoeae DNA [Presence] in Unspecified specimen by SUMIT with probe detection GONORRHEA/CHLAMYDIA NAAT Lab Routine with uncertain dates in first trimester 05/07/2024 10:24 AM [facility] End: 10-04-2025 ECG COMPLETE ECG COMPLETE ECG Routine History of pre-eclampsia 29 weeks gestation of ([facility]) Pre-existing type 2 diabetes mellitus in in third trimester ([facility]) Supervision of high risk in third trimester ([facility]) 1 Occurrences starting 10/04/2024 until 10/04/2025 [facility] Work Phone: Comment on above: 1 Occurrences starti ng 10/04/2024 until 10/04/2025 End: 06-15-2025 ECHO ECHO Cardiology Routine Pre-existing type 2 diabetes mellitus in in first trimester 1 Occurrences starting 06/15/2024 until 06/15/2025 [facility] Comment on above: 1 Occurrences starti ng 06/15/2024 until 06/15/2025 End: 04-18-2024 Extra Urine [facility] Extra Urine [facility] Lab Timed Once for 1 Occurrences starting 04/18/2024 until 04/18/2024 [facility] Work Phone: Comment on above: Once for 1 Occurrenc es starting 04/18/2024 until 04/18/2024 End: 05-21-2024 Extra Urine [facility] Work Phone: Comment on above: Once for 1 Occurrenc es starting 05/21/2024 until 05/21/2024 End: 01-02-2025 nonstress test NON-STRESS TEST Procedures Routine History of pre-eclampsia 29 weeks gestation of ([facility]) Pre-existing type 2 diabetes mellitus in in third trimester ([facility]) Supervision of high risk in third trimester ([facility]) 2x per week for 16 Occurrences starting 10/04/2024 until 01/02/2025 [facility] Comment on above: 2x per week for 16 O ccurrences starting 10/04/2024 until 01/02/2025 Neisseria gonorrhoea e nucleic acid detection Chlamydia/Gonorrhoeae Amplified RNA Microbiology Routine Vaginal discharge Ordered: 08/17/2022 [facility] Comment on above: Ordered: 08/17/2022 End: 12-08-2020 Nuclear Ab IF (S) [Titer] NICOLE Lab Routine Seizure ([facility]) 1 Occurrences starting 12/08/2019 until 12/08/2020 [facility] Comment on above: 1 Occurrences starti ng 12/08/2019 until 12/08/2020 Nuclear Ab IF (S) [Titer] NICOLE Lab Routine Seizure ([facility]) 12/08/2019 8:42 AM EDT [facility] End: 11-26-2024 OBSTETRIC ULTRASOUND WHI OBSTETRIC ULTRASOUND I Anc Imaging Routine Obesity affecting in first trimester, unspecified obesity type Pre-existing type 2 diabetes mellitus in in first trimester Once per month for 4 Occurrences starting 08/10/2024 until 11/26/2024 [facility] Work Phone: Comment on above: Once per month for 4 Occurrences starting 08/10/2024 until 11/26/2024 PAP TEST PAP TEST Lab Minerva arellano Encounter for supervision of high risk in first trimester, antepartum Screening for cervical cancer 05/07/2024 10:48 AM EST [facility] Patient Education Kick Counts ED False Labor OB Triage: Return to Hospital or Notify Physician if you Experience: [facility] Work Phone: Patient referral [facility] Work Phone: End: 12-08-2020 Reagin Ab RPR Ql (S) RPR Lab Routine Seizure ([facility]) 1 Occurrences starting 12/08/2019 until 12/08/2020 [facility] Comment on above: 1 Occurrences starti ng 12/08/2019 until 12/08/2020 Reagin Ab RPR Ql (S) RPR Lab Rou eileen Seizure ([facility]) 12/08/2019 8:42 AM EDT [facility] Trichomonas vaginali s Amplified RNA Trichomonas vaginalis Amplified RNA Microbiology Routine Vaginal discharge Ordered: 08/17/2022 [facility] Comment on above: Ordered: 08/17/2022 End: 04-18-2024 Urinalysis complete W Reflex Culture panel - Urine [facility] Work Phone: Comment on above: Once (Lab) for 1 Occ urrences starting 04/18/2024 until 04/18/2024 End: 05-21-2024 Urinalysis complete W Reflex Culture panel - Urine [facility] Work Phone: Comment on above: Once (Lab) for 1 Occ urrences starting 05/21/2024 until 05/21/2024 Urine culture [facility] Urine culture [facility] NEGATED: Highlighted row has been ruled out! Planned Goals not documented [facility] Work Phone: Immunizations Immunization Date Immunization Notes Care Provider [facility] 10-04-2024 tetanus toxoid, redu vicki diphtheria toxoid, and acellular pertussis vaccine, adsorbed Piper Julian MD Work Phone: [facility] 03-27-[address] Jamari Byrne MD Work Phone: [facility] 03-27-2016 influenza virus vacc ine, unspecified formulation [facility] 11-22-2013 pneumococcal polysaccharide vaccine, 23 valent Piper Julian MD Work Phone: [facility] 03-29-2013 influenza, seasonal, injectable Piper Julian MD Work Phone: [facility] 03-29-2013 influenza virus vacc ine, unspecified formulation Mary GOODWIN Work Phone: [facility] 09-17-2012 hepatitis A vaccine, pediatric/adolescent dosage, 2 dose schedule Piper Julian MD Work Phone: [facility] 01-30-2012 hepatitis A vaccine, pediatric/adolescent dosage, 2 dose schedule Piper Julian MD Work Phone: [facility] 10-11-2010 HPV, unspecified formulation Piper Julian MD Work Phone: [facility] 10-11-2010 tetanus toxoid, redu vicki diphtheria toxoid, and acellular pertussis vaccine, adsorbed Piper Julian MD Work Phone: [facility] 11-05-2007 human papilloma viru s vaccine, quadrivalent Piper Julian MD Work Phone: [facility] 09-03-2007 HPV, unspecified formulation Piper Julian MD Work Phone: [facility] 09-03-2007 meningococcal polysaccharide vaccine (MPSV4) Piper Julian MD Work Phone: [facility] 11-27-2000 diphtheria, tetanus toxoids and acellular pertussis vaccine, unspecified formulation Piper Julian MD Work Phone: [facility] 11-27-2000 measles, mumps and rubella virus vaccine Piper Julian MD Work Phone: [facility] 06-09-1999 HPV, unspecified formulation [facility] 03-05-1999 haemophilus influenz ae type b vaccine, conjugate unspecified formulation Piper Julian MD Work Phone: [facility] 03-05-1999 trivalent poliovirus vaccine, live, oral Piper Julian MD Work Phone: [facility] 02-15-1998 diphtheria, tetanus toxoids and acellular pertussis vaccine, unspecified formulation Piper Julian MD Work Phone: [facility] 07-26-1997 diphtheria, tetanus toxoids and pertussis vaccine Piper Julian MD Work Phone: [facility] 07-26-1997 haemophilus influenz ae type b vaccine, conjugate unspecified formulation Piper Julian MD Work Phone: [facility] 07-26-1997 trivalent poliovirus vaccine, live, oral Piper Julian MD Work Phone: [facility] 04-26-1997 diphtheria, tetanus toxoids and pertussis vaccine Piper Julian MD Work Phone: [facility] 04-26-1997 haemophilus influenz ae type b vaccine, conjugate unspecified formulation Piper Julian MD Work Phone: [facility] 04-26-1997 measles, mumps and rubella virus vaccine Piper Julian MD Work Phone: [facility] 04-26-1997 trivalent poliovirus vaccine, live, oral Piper Julian MD Work Phone: [facility] 01-14-1996 DTP-Haemophilus influenzae type b conjugate vaccine Piper Julian MD Work Phone: [facility] 01-14-1996 hepatitis B vaccine, pediatric or pediatric/adolescent dosage Piper Julian MD Work Phone: [facility] 01-14-1996 trivalent poliovirus vaccine, live, oral Piper Julian MD Work Phone: [facility] 1995 hepatitis B vaccine, adult dosage Piper Julian MD Work Phone: [facility] 1995 hepatitis B vaccine, adult dosage Piper Julian MD Work Phone: [facility] Payers Date Payer Category Payer Unknown [id number] 2024 Medicare (Managed Care) [facility] [id number] 2024 Self-pay 2023 Medicare [id number] 2022 Dual Eligibility Medicare/Medicaid Organization [id number] 2022 Medicaid [id number] .[id number] 2022 Medicaid [id number] 2022 Unknown [id number] 2021 Medicare [id number] 2019 Unknown 2016 Unknown [id number] 2016 Medicaid [id number] 2016 Medicaid [facility] MEDICAID [employer] [id number] 2016-Present [id number] 2016 Unknown [id number] .[id number] 1995 Unknown [id number] 2.16.840.1.786341.3.579.2 .479 1995 Unknown [id number] 2.16.840.1.383780.3.579.2 .479 1995 Unknown [id number] 2.16.840.1.587855.3.579.2 .900 1995 Unknown [id number] 2.16.840.1.026783.3.579.2 .903 1995 Unknown [id number] 2.16.840.1.520054.3.579.2 .903 1995 Unknown [id number] 2.16.840.1.129594.3.579.2 .903 1995 Unknown [id number] 2.16.840.1.883884.3.579.2 .903 1995 Unknown [id number] 2.16.840.1.509571.3.579.2 .903 1995 Unknown [id number] 2.16.840.1.089526.3.579.2 .903 1995 Unknown [id number] 2.16.840.1.945186.3.579.2 .903 1995 Unknown [id number] 2.16.840.1.331613.3.579.2 .174 1995 Unknown [id number] 2.16.840.1.074491.3.579.2 .903 1995 Unknown [id number] 2.16.840.1.169388.3.579.2 .356 1995 Unknown [id number] 2.16.840.1.836254.3.579.2 .356 1995 Unknown [id number] 2.16840.1.085912.3.579.2 .356 1995 Unknown [id number] 2.16840.1.217719.3.579.2 .356 1995 Unknown [id number] 2.16.840.1.440745.3.579.2 .356 1995 Unknown [id number] 2.16.840.1.355866.3.579.2 .356 1995 Unknown [id number] 2.16.840.1.018890.3.579.2 .651 1995 Unknown [id number] 2.16840.1.922004.3.579.2 .651 1995 Unknown [id number] 2.16.840.1.093661.3.579.2 .1245 1995 Unknown [id number] 2.16.840.1.206649.3.579.2 .1245 1995 Unknown [id number] 2.16.840.1.300053.3.579.2 .1244 1995 Unknown [id number] 2.16.840.1.588723.3.579.2 .124 1995 Unknown [id number] 2.840.1.714282.3.579.2 .124 1995 Unknown [id number] 2.840.1.825400.3.579.2 .124 1995 Unknown [id number] 2.840.1.335214.3.579.2 .1243 1995 Unknown [id number] 2.840.1.180085.3.579.2 .1243 1995 Unknown [id number] 2.840.1.810870.3.579.2 .1242 1995 Unknown [id number] 2.840.1.439038.3.579.2 .1242 1995 Unknown [id number] 20.1.495706.3.579.2 .1243 Medicaid MEDICAID [facility] [id number] Effective for all dates [id number] .7.3.279068.315 Unknown [id number] 840.1.296314.3.579.2 .462 Unknown [id number] 2840.1.267295.3.579.2 .462 Unknown 1980 07.25.830.1.271209.3.579.2 .462 Unknown [id number] 840.1.888143.3.579.2 .462 Unknown [id number] 840.1.056449.3.579.2 .462 Unknown [id number] 07.25.830.1.218518.3.579.2 .462 Social History Date Type Detail Facility Start: 09-12-2018 End: 05-03-2024 Tobacco smoking status MNIS Current every day smoker [facility] Start: 12-24-2009 End: 06-03-2016 History of tobacco use Cigarette Smoker [facility] Start: 09-12-2018 End: 10-12-2024 Cigarettes smoked current (pack per day) - Reported [facility] Comment on above: 1/2 PPD; Start: 1995 Sex Assigned At Not on file A [facility] Start: 02-10-2019 End: 08-17-2022 Alcohol intake Ex-drinker (finding) [facility] Start: 06-23-2016 Alcohol Comment [facility] Start: 12-08-2019 End: 05-03-2024 Tobacco use and exposure Never used [facility] Start: 08-07-2022 End: 09-06-2024 Exposure to SARS-CoV-2 (event) Not sure [facility] Tobacco smoking consumption unknown [facility] Start: 12-13-2022 End: 10-12-2024 Tobacco use panel [facility] Work Phone: Start: 1995 [facility] Start: 09-20-2022 Gender identity Identifies as female gender (finding) [facility] Work Phone: Start: 09-20-2022 Sexual orientation Bisexual (finding ) [facility] Work Phone: Start: 08-19-2023 End: 11-18-2024 Alcohol intake Current non-drinker of alcohol (finding) [facility] National Score (1-100), lower number is lower risk 80 [facility] Start: 04-18-2024 End: 09-06-2024 Alcoholic beverage intake Lifetime non-drinker (finding) [facility] Work Phone: The thought of harming myself has occurred to me Never [facility] Start: 05-03-2024 Education 15 [facility] Start: 03-27-2024 [facility] Start: 05-28-2024 Sexual orientation Heterosexual (sammy pittman) [facility] Start: 09-06-2024 Tobacco Comment Smokes 2 cigar ettes a day [facility] Work Phone: Start: 09-24-2024 Sex Female (finding) [facility] NEGATED: Highlighted row - - Women[address] Work Phone: Medical Equipment Procedure Code Equipment Code Equipment Origin al Text Equipment Identifier Dates [id number] Start: 05-05-2018 End: 05-04-2024 Inject 1 each as directed 2 (two) times a day as needed . [id number] Start: 05-05-2018 by Miscellaneous route daily as needed . [id number] Start: 02-22-2019 Inject 1 each as directed daily as needed . [id number] Start: 02-22-2019 Accu-Chek Soraya Plus In Vitro Strip TEST ONCE DAILY. Quantity: 1 Refills: 3 Oberhauser DO, Rich Start : 28-Sep-2019 Active 100 Strip Box Start: 09-28-2019 Accu-Chek FastCl ix Lancets USE DIRECTED. Quantity: 1 Refills: 3 Oberhauser DO, Rich Start : 28-Sep-2019 Active 102 Unit Box Start: 09-28-2019 Accu-Chek Soraya Plus In Vitro Strip TEST ONCE DAILY. Quantity: 1 Refills: 3 Oberhauser DO, Rich Start : 28-Sep-2019 Active 100 Strip Box Start: 09-28-2019 Accu-Chek FastCl ix Lancets USE DIRECTED. Quantity: 1 Refills: 3 Oberhauser DO, Rich Start : 28-Sep-2019 Active 102 Unit Box Start: 09-28-2019 1 strip 1 (one) time each day. [id number] Start: 11-13-2021 1 (one) time each day. [id number] Inject nightly [id number] Start: 12-13-2022 End: 12-13-2023 Use to inject nightly [id number] Sta rt: 12-20-2022 End: 12-25-2023 Use with lantus pen 10 units at bedtime subcutaneous [id number] Start: 03-17-2023 Use to inject 4 times per day [id number] Start: 12-25-2023 End: 12-24-2024 4 times/day [id number] Start: 05-03-2024 Use with blood g lucose test four times a day. [id number] Start: 06-14-2024 End: 09-27-2024 Use with blood g lucose test four times a day. [id number] Start: 06-14-2024 End: 09-24-2024 Use as instructe d - TEST BLOOD SUGARS 4 TIMES DAILY [id number] Start: 08-03-2024 Use with blood g lucose test four times a day. Insulin Dep? Yes [id number] Start: 08-03-2024 End: 08-10-2024 Use with blood g lucose test four times a day. Insulin Dep? Yes [id number] Start: 08-10-2024 Goals Date Patient Goal Desired Activity /State Personal health goal Functional Status Date Assessment Result Facility 12-21-2016 Are you deaf, or do you have serious difficulty hearing No 12/21/2016 10:45 AM Krys Du, BETSY No [facility] 12-21-2016 Are you blind, or do you have serious difficulty seeing, even when wearing glasses No 12/21/2016 10:45 AM Krys Du, BETSY No [facility] 12-21-2016 Do you have serious difficulty walking or climbing stairs No 12/21/2016 10:45 AM Krys Du, BETSY No [facility] 12-21-2016 Do you have difficul ty dressing or bathing No 12/21/2016 10:45 AM Krys Du, BETSY No [facility] 12-21-2016 Because of a physica l, mental, or emotional condition, do you have difficulty doing errands alone such as visiting a physician's office or shopping No 12/21/2016 10:45 AM Krys Du, BETSY [facility] NEGATED: Highlighted row Functional performance Functional status health issues are not documented Disease [place] [address] [employer] Work Phone: Mental Status Date Assessment Result Facility 12-21-2016 Because of a physical, mental, or emotional condition, do you have serious difficulty concentrating, remembering, or making decisions No 12/21/2016 10:45 AM Krys Du, BETSY No [facility] NEGATED: Highlighted row Cognitive function [Interpretation] Cognitive status health issues are not documented [facility] Work Phone: Clinical Notes 01-01-2017 to 12-06-2024 Telephone Encounter - Kelsy Guillermo, DO - 12/06/2024 9:07 AM EDTTelephone Encounter - Kelsy Guillermo, DO - 12/06/2024 9:07 AM Keshav Herrera MD - 12/02/2024 12:40 PM EDTPatient Instructions Note Date & Type Note Facility 12-06-2024 Note Indication Evaluation of well-being Maternal obesity, BMI >30, Diabetes mellitus, History of preeclampsia Impression - Single, live, intrauterine . - presentation is cephalic. - The amniotic fluid volume is normal amount with an MVP of 3.7 cm and an VI of 10.1 cm. - The placenta is anterior, fundal. - BPP 01/14. Recommendations Continue planned testing Maternal Assessment Height 157 cm Height (ft) 5 ft Height (in) 2 in Physical Exam Initial weight (lb) 171 lb Initial BMI 31.28 kg/m Maternal assessment other: 3 Para 1 REMOTE READ Growth Overview Exam date GA BPD (mm) HC (mm) AC (mm) FL (mm) HL (mm) EFW (g) 07/13/2024 17w 3d 34.2 14% 133.5 25% 116.9 49% 23.1 39% 181 25% 08/10/2024 21w 3d 46.5 6% 184.8 32% 156.5 24% 32.6 21% 32.6 30% 361 11% 09/02/2024 24w 5d 55.6 3% 218.3 24% 192.4 19% 41.8 27% 632 11% 10/04/2024 29w 2d 64.4 <1% 258.9 16% 247 33% 51.5 10% 1213 13% 10/28/2024 32w 5d 73.2 <1% 283 9% 286.8 50% 59.6 18% 1860 19% 11/22/2024 36w 2d 81.1 <1% 314.3 21% 323 59% 65 9% 2628 26% Method Transabdominal ultrasound examination [place] . Number of fetuses: 1 Dating LMP on: 03/13/2024 GA by LMP 38 w + 2 d ADA by LMP: 12/18/2024 GA by prior assessment 38 w + 2 d ADA by prior assessment: 12/18/2024 Assigned: based on stated ADA, selected on 11/30/2024 Assigned GA 38 w + 2 d Assigned ADA: 12/18/2024 General Evaluation Cardiac activity present. FHR 155 bpm. movements: present. Presentation: cephalic Placenta: Placental site: anterior, fundal Amniotic Fluid Assessment Amount of AF: normal amount MVP 3.7 cm. VI 10.1 cm. Q1 3.7 cm, Q2 2.9 cm, Q3 2.3 cm, Q4 1.3 cm Biophysical Profile 2: breathing movements 2: Gross body movements 2: tone 2: Amniotic fluid volume 01/14 Biophysical profile score Performed By: Idania Snyder RDMS, RVT Read By: Pooja Latham M.D. [facility] 12-06-2024 Telephone encounter Note Reviewed BG data- responded as follows; Good morning- I reviewed your BG data- these numbers continue to look good overall and remain at goal for - continue your current regimen as you are doing: NPH 90 units at bedtime. Humalog 23 units prior to breakfast, 23 units prior to lunch, Humalog 26 units prior to dinner. Take an + additional 5 units with Higher carb meals (camilo with * if/when you take the extra insulin so I can see if it is working or not). take 1/2 of the Humalog if you don't feel like you're going to eat enough or eat a lower carb meal. Camilo with 0 if you take less insulin. Will review again next week (if applicable!)- thanks! KB [facility] 12-06-2024 Miscellaneous Notes Reviewed BG data- responded as follows; Good morning- I reviewed your BG data- these numbers continue to look good overall and remain at goal for - continue your current regimen as you are doing: NPH 90 units at bedtime. Humalog 23 units prior to breakfast, 23 units prior to lunch, Humalog 26 units prior to dinner. Take an + additional 5 units with Higher carb meals (camilo with * if/when you take the extra insulin so I can see if it is working or not). take 1/2 of the Humalog if you don't feel like you're going to eat enough or eat a lower carb meal. Camilo with 0 if you take less insulin. Will review again next week (if applicable!)- thanks! KB documented in this encounter [facility] 12-02-2024 Note [facility] 12-02-2024 History of Presen t illness Narrative NST SUMMARY PROVIDER ASSESSMENT AND INTERPRETATION Melissa Byrne is a 29 year old female, , who is at 37w5d with an ADA of 12/18/2024, by Last Menstrual Period dating method. Indications for NST: Diabetes - Insulin Controlled Baseline: 130 Variability: Moderate Accelerations: Present 15 X 15 Decelerations: None Contractions: TOCO: None Interpretation: Reactive SIGNATURE: Keshav Loving DO documented in this encounter [facility] 12-02-2024 Progress note Formatting of t his note might be different from the original. SW- Pt doing well. No ERWIN, vision changes, ctx, vb, lof. Good FM PE: Gen- NAD, well appearing Abd- Soft, gravid, NT See flowsheet Ap 37 wk gestation - Type 2 DM: Well controlled per endo - H/o pre e: BP normal. Cont LDA - H/o HSV: Cont Acyclovir - High risk : Recommend IOL 37-39 weeks. Patient requests induction Friday next week 12/07/24 and does not want an induction sooner. Wants time for family to plan and she is currently sharing a car with father. Cont with scheduled BPP next week. NST reactive today Keshav Loving DO [facility] 12-02-2024 Miscellaneous Notes SW- Pt doing well. No ERWIN, vision changes, ctx, vb, lof. Good FM PE: Gen- NAD, well appearing Abd- Soft, gravid, NT See flowsheet Ap 37 wk gestation - Type 2 DM: Well controlled per endo - H/o pre e: BP normal. Cont LDA - H/o HSV: Cont Acyclovir - High risk : Recommend IOL 37-39 weeks. Patient requests induction Friday next week 12/07/24 and does not want an induction sooner. Wants time for family to plan and she is currently sharing a car with father. Cont with scheduled BPP next week. NST reactive today Keshav Loving DO documented in this encounter [facility] 12-02-2024 Instructions Rebeca Vazquez MA - 12/02/2024 10:05 AM EDT SEQUENTIAL SCREENINGS The [facility] offers sequential screenings for women who are interested in screenings for chromosomal abnormalities and certain defects during a . The sequential screen combines ultrasound and blood tests to determine the risk of chromosomal abnormalities, including Down's Syndrome (Trisomy 21) and Trisomy 18, as well as open neural tube defects including spina bifida. Ultrasound examination is performed between 11 weeks and 13 weeks gestational age. Blood tests are drawn after the ultrasound and again later in the between 15 and 21 weeks gestational age. Please let your physician know if you are interested in this testing. It will require an appointment with our firestopper technician. This is not an ultrasound performed by a physician in our office during a routine visit. SIGNS AND SYMPTOMS OF LABOR 1. Contractions every 10 minutes or more often 2. Clear, pink, or brownish fluid (water) leaking from vagina 3. Feeling that baby is pushing down, pressure 4. Low, dull backache 5. Cramps that feel like a period 6. Cramps with or without diarrhea If you notice any of the above symptoms, contact our office at [phone] and ask to speak with a nurse. After hours, you can call doctors registry at [phone] OR call [facility] at [phone] and ask to have the doctor marketing professional paged. If you consider this an emergency, dial 9--1 or go to your nearest emergency department. NEED HELP? Are you dealing with a violent or abusive relationship? Are you a victim of rape or sexual assult? Call [facility] ([place]) 24 hour Crisis Hotline: 545.229.1974 or 833-914-7506. MANUAL Your Guide to a Healthy manual is now on-line. Visit [email or web address] to download your free copy documented in this encounter [facility] 12-01-2024 Telephone encounter Note Reviewed BG data- responded as follows: Hi Hoda- I reviewed your BG data- these numbers remain at goal for - continue your current regimen as you are dong: NPH 90 units at bedtime. Humalog 23 units prior to breakfast, 23 units prior to lunch, Humalog 26 units prior to dinner. Take an + additional 5 units with Higher carb meals (camilo with * if/when you take the extra insulin so I can see if it is working or not). take 1/2 of the Humalog if you don't feel like you're going to eat enough or eat a lower carb meal. Camilo with 0 if you take less insulin. Will review again next week- thanks! KB [facility] 12-01-2024 Miscellaneous Notes Reviewed BG data- responded as follows: Hector Drummond- I reviewed your BG data- these numbers remain at goal for - continue your current regimen as you are dong: NPH 90 units at bedtime. Humalog 23 units prior to breakfast, 23 units prior to lunch, Humalog 26 units prior to dinner. Take an + additional 5 units with Higher carb meals (camilo with * if/when you take the extra insulin so I can see if it is working or not). take 1/2 of the Humalog if you don't feel like you're going to eat enough or eat a lower carb meal. Camilo with 0 if you take less insulin. Will review again next week- thanks! KB documented in this encounter [facility] 06-24-2025 Note Indication Evaluation of well-being Maternal obesity, BMI >30, Diabetes mellitus, History of preeclampsia Impression REMOTE READ: Follow-up assessment of well-being in a complicated by class 1 obesity (BMI 31), Type 2 Diabetes (insulin), history of preeclampsia, and bipolar disorder (buspirone, prozac). - Single, live, intrauterine . - presentation is cephalic. - The amniotic fluid volume is normal amount with an MVP of 5 cm and an VI of 12.7 cm. - The placenta is anterior, fundal. - BPP is 8/8. Serial assessment of growth (every 4 weeks) and twice weekly surveillance are recommended. Thank you for the referral. Recommendations As above Maternal Assessment Height 157 cm Height (ft) 5 ft Height (in) 2 in Physical Exam Initial weight (lb) 171 lb Initial BMI 31.28 kg/m Maternal assessment other: 3 Para 1 REMOTE READ Growth Overview Exam date GA BPD (mm) HC (mm) AC (mm) FL (mm) HL (mm) EFW (g) 07/13/2024 17w 3d 34.2 14% 133.5 25% 116.9 49% 23.1 39% 181 25% 08/10/2024 21w 3d 46.5 6% 184.8 32% 156.5 24% 32.6 21% 32.6 30% 361 11% 09/02/2024 24w 5d 55.6 3% 218.3 24% 192.4 19% 41.8 27% 632 11% 10/04/2024 29w 2d 64.4 <1% 258.9 16% 247 33% 51.5 10% 1213 13% 10/28/2024 32w 5d 73.2 <1% 283 9% 286.8 50% 59.6 18% 1860 19% 11/22/2024 36w 2d 81.1 <1% 314.3 21% 323 59% 65 9% 2628 26% Method Transabdominal ultrasound examination [place] . Number of fetuses: 1 Dating LMP on: 03/13/2024 GA by LMP 37 w + 3 d ADA by LMP: 12/18/2024 GA by prior assessment 37 w + 3 d ADA by prior assessment: 12/18/2024 Assigned: based on stated ADA, selected on 11/30/2024 Assigned GA 37 w + 3 d Assigned ADA: 12/18/2024 General Evaluation Cardiac activity present. FHR 137 bpm. movements: present. Presentation: cephalic Placenta: Placental site: anterior, fundal Umbilical cord: Cord vessels: 3 vessel cord Amniotic Fluid Assessment Amount of AF: normal amount MVP 5.0 cm. VI 12.7 cm. Q1 3.3 cm, Q2 5.0 cm, Q3 1.3 cm, Q4 3.1 cm Biophysical Profile 2: breathing movements 2: Gross body movements 2: tone 2: Amniotic fluid volume 01/14 Biophysical profile score Performed By: Idania Snyder, JANELL, RVT Read By: Elie Coronado M.D. [facility] 11-25-2024 Progress note Formatting of t his note might be different from the original. S: Hoda denies LOF, contractions or vaginal bleeding O: 36w5d, see flow sheet SENSITIVE EXAM: Sensitive exam not performed. A/P: Assessment & Plan Pre-existing type 2 diabetes mellitus in in third trimester (HCC) Well controlled on insulin. Managed by . Continue testing. Orders: URINE OB DIP B/O History of herpes genitalis Continue acyclovir. Orders: URINE OB DIP B/O History of pre-eclampsia Orders: URINE OB DIP B/O 36 weeks gestation of (HCC) GBS bacteruria Orders: URINE OB DIP B/O messagegosia about induction timing. Will schedule 37-39 weeks. Reviewed labor & FM precautions William Gramajo MD [facility] 11-25-2024 Miscellaneous Notes S: Hoda denies LOF, contractions or vaginal bleeding O: 36w5d, see flow sheet SENSITIVE EXAM: Sensitive exam not performed. A/P: Assessment & Plan Pre-existing type 2 diabetes mellitus in in third trimester (HCC) Well controlled on insulin. Managed by . Continue testing. Orders: URINE OB DIP B/O History of herpes genitalis Continue acyclovir. Orders: URINE OB DIP B/O History of pre-eclampsia Orders: URINE OB DIP B/O 36 weeks gestation of (HCC) GBS bacteruria Orders: URINE OB DIP B/O messagegosia about induction timing. Will schedule 37-39 weeks. Reviewed labor & FM precautions William Gramajo MD documented in this encounter [facility] 11-25-2024 Note [facility] 11-25-2024 History of Presen t illness Narrative NST SUMMARY PROVIDER ASSESSMENT AND INTERPRETATION Melissa Byrne is a 29 year old female, , who is at 36w5d with an ADA of 12/18/2024, by Last Menstrual Period dating method. Indications for NST: Diabetes - Insulin Controlled Baseline: 145 Variability: Moderate Accelerations: Present 15 X 15 Decelerations: None Contractions: TOCO: Irregular Interpretation: Reactive SIGNATURE: William Gramajo MD documented in this encounter [facility] 11-25-2024 Instructions Teri Jack MA - 11/25/2024 8:48 AM EDT SEQUENTIAL SCREENINGS The [facility] offers sequential screenings for women who are interested in screenings for chromosomal abnormalities and certain defects during a . The sequential screen combines ultrasound and blood tests to determine the risk of chromosomal abnormalities, including Down's Syndrome (Trisomy 21) and Trisomy 18, as well as open neural tube defects including spina bifida. Ultrasound examination is performed between 11 weeks and 13 weeks gestational age. Blood tests are drawn after the ultrasound and again later in the between 15 and 21 weeks gestational age. Please let your physician know if you are interested in this testing. It will require an appointment with our firestopper technician. This is not an ultrasound performed by a physician in our office during a routine visit. SIGNS AND SYMPTOMS OF LABOR 1. Contractions every 10 minutes or more often 2. Clear, pink, or brownish fluid (water) leaking from vagina 3. Feeling that baby is pushing down, pressure 4. Low, dull backache 5. Cramps that feel like a period 6. Cramps with or without diarrhea If you notice any of the above symptoms, contact our office at [phone] and ask to speak with a nurse. After hours, you can call doctors registry at [phone] OR call [facility] at [phone] and ask to have the doctor marketing professional paged. If you consider this an emergency, dial 9--1 or go to your nearest emergency department. NEED HELP? Are you dealing with a violent or abusive relationship? Are you a victim of rape or sexual assult? Call [facility] ([place]) 24 hour Crisis Hotline: 515.614.1924 or 605-433-4336. MANUAL Your Guide to a Healthy manual is now on-line. Visit [email or web address] to download your free copy documented in this encounter [facility] 11-25-2024 Telephone encounter Note Reviewed BG data- responded as follows: Good morning- I reviewed your BG data- these numbers remain at goal for - continue your current regimen as you are dong: NPH 90 units at bedtime. Humalog 23 units prior to breakfast, 23 units prior to lunch, Humalog 26 units prior to dinner. Take an + additional 5 units with Higher carb meals (camilo with * if/when you take the extra insulin so I can see if it is working or not). take 1/2 of the Humalog if you don't feel like you're going to eat enough or eat a lower carb meal. Camilo with 0 if you take less insulin. Will review again next week- thanks! Dr Guillermo [facility] 11-25-2024 Miscellaneous Notes Reviewed BG data- responded as follows: Good morning- I reviewed your BG data- these numbers remain at goal for - continue your current regimen as you are dong: NPH 90 units at bedtime. Humalog 23 units prior to breakfast, 23 units prior to lunch, Humalog 26 units prior to dinner. Take an + additional 5 units with Higher carb meals (camilo with * if/when you take the extra insulin so I can see if it is working or not). take 1/2 of the Humalog if you don't feel like you're going to eat enough or eat a lower carb meal. Camilo with 0 if you take less insulin. Will review again next week- thanks! Dr Guillermo documented in this encounter [facility] 11-22-2024 Telephone encounter Note noted. We did receive a note from them at one point. She should follow up as they recommend and it is ok for her to undergo treatments during . Piper Julian MD [facility] 11-22-2024 Miscellaneous Notes noted. We did receive a note from them at one point. She should follow up as they recommend and it is ok for her to undergo treatments during . Piper Julian MD documented in this encounter [facility] 11-22-2024 Note Indication Evaluation of growth, Evaluation of well-being Maternal obesity, BMI >30, Diabetes mellitus, History of preeclampsia Impression - Single, live, intrauterine . - presentation is cephalic. - The biometry is consistent with the assigned gestational dating. - The EFW is 2628 g, at the 26%. AC is at the 59%. - The amniotic fluid volume is normal amount with an MVP of 6.4 cm and an VI of 15.5 cm. - The placenta is anterior, fundal. - BPP 01/14. - No malformations visualized on a limited survey as detailed below. Recommendations Continue twice weekly testing. Maternal Assessment Height 157 cm Height (ft) 5 ft Height (in) 2 in Physical Exam Initial weight (lb) 171 lb Initial BMI 31.28 kg/m Maternal assessment other: 3 Para 1 REMOTE READ Method Transabdominal ultrasound examination. View: Suboptimal view: limited by position [place] . Number of fetuses: 1 Dating LMP on: 03/13/2024 GA by LMP 36 w + 2 d ADA by LMP: 12/18/2024 GA by prior assessment 36 w + 2 d ADA by prior assessment: 12/18/2024 Ultrasound examination on: 11/22/2024 GA by U/S based upon: AC, BPD, Femur, HC GA by U/S 34 w + 1 d ADA by U/S: 01/02/2025 Assigned: based on stated ADA, selected on 11/22/2024 Assigned GA 36 w + 2 d Assigned ADA: 12/18/2024 General Evaluation Cardiac activity present. FHR 157 bpm. movements: present. Presentation: cephalic Placenta: Placental site: anterior, fundal Umbilical cord: Cord vessels: 3 vessel cord Amniotic fluid: Amount of AF: normal amount. MVP 6.4 cm. VI 15.5 cm. Q1 2.0 cm, Q2 2.4 cm, Q3 6.4 cm, Q4 4.6 cm Biophysical Profile 2: breathing movements 2: Gross body movements 2: tone 2: Amniotic fluid volume 01/14 Biophysical profile score Growth Overview Exam date GA BPD (mm) HC (mm) AC (mm) FL (mm) HL (mm) EFW (g) 07/13/2024 17w 3d 34.2 14% 133.5 25% 116.9 49% 23.1 39% 181 25% 08/10/2024 21w 3d 46.5 6% 184.8 32% 156.5 24% 32.6 21% 32.6 30% 361 11% 09/02/2024 24w 5d 55.6 3% 218.3 24% 192.4 19% 41.8 27% 632 11% 10/04/2024 29w 2d 64.4 <1% 258.9 16% 247 33% 51.5 10% 1213 13% 10/28/2024 32w 5d 73.2 <1% 283 9% 286.8 50% 59.6 18% 1860 19% 11/22/2024 36w 2d 81.1 <1% 314.3 21% 323 59% 65 9% 2628 26% Biometry Standard BPD 81.1 mm 32w 4d <1% Hadlock OFD 115.2 mm 36w 1d 55% Nicolaides HC 314.3 mm 34w 2d 21% Anna AC 323.0 mm 36w 2d 59% Hadlock Femur 65.0 mm 33w 2d 9% Anna EFW 2,628 g 35w 1d 26% Hadlock EFW (lb) 5 lb EFW (oz) 13 oz EFW by: Hadlock (HC-AC-FL) Extended Waistband Setter Lockstitch 7.4 mm Extremities / Bony Struc FL / HC 0.21 Other Structures FHR 157 bpm Anatomy Lateral ventricles: normal Cavum septi pellucidi: normal Cerebellum: normal Cisterna magna: normal 4-chamber view: suboptimally visualized RVOT view: suboptimally visualized LVOT view: normal 3-vessel view: normal Heart / Thorax Situs: situs solitus (normal) Diaphragm: normal Stomach: normal Kidneys: normal Bladder: normal sex: female Wants to know sex: yes Performed By: Idania Snyder RDMS, RVT Read By: Alondra Segundo M.D. [facility] 11-18-2024 Note [facility] 11-18-2024 History of Presen t illness Narrative NST SUMMARY PROVIDER ASSESSMENT AND INTERPRETATION Melissa Byrne is a 29 year old female, , who is at 35w5d with an ADA of 12/18/2024, by Last Menstrual Period dating method. Indications for NST: Diabetes - Insulin Controlled Baseline: 130 Variability: Moderate Accelerations: Present 15 X 15 Decelerations: None Contractions: TOCO: None Interpretation: Reactive SIGNATURE: Keshav Loving DO documented in this encounter [facility] 11-18-2024 Progress note Formatting of t his note might be different from the original. SW- Add on visit after NST for vaginal discharge and irritation. Some irregular ctx's. No vb. Good FM PE: Gen- NAD, well appearing, comfortable Abd- Obese - Minimal white vaginal discharge noted Cvx closed and thick See flowsheet A/p 35 wk gestation add on visit for vaginal discharge and irritation - Check BV, yeast - NST reactive today - Keep scheduled follow up Keshav Loving DO [facility] 11-18-2024 Miscellaneous Notes SW- Add on visit after NST for vaginal discharge and irritation. Some irregular ctx's. No vb. Good FM PE: Gen- NAD, well appearing, comfortable Abd- Obese - Minimal white vaginal discharge noted Cvx closed and thick See flowsheet A/p 35 wk gestation add on visit for vaginal discharge and irritation - Check BV, yeast - NST reactive today - Keep scheduled follow up Keshav Loving DO documented in this encounter [facility] 11-18-2024 Instructions Rebeca Vazquez MA - 11/18/2024 2:25 PM EDT SEQUENTIAL SCREENINGS The [facility] offers sequential screenings for women who are interested in screenings for chromosomal abnormalities and certain defects during a . The sequential screen combines ultrasound and blood tests to determine the risk of chromosomal abnormalities, including Down's Syndrome (Trisomy 21) and Trisomy 18, as well as open neural tube defects including spina bifida. Ultrasound examination is performed between 11 weeks and 13 weeks gestational age. Blood tests are drawn after the ultrasound and again later in the between 15 and 21 weeks gestational age. Please let your physician know if you are interested in this testing. It will require an appointment with our firestopper technician. This is not an ultrasound performed by a physician in our office during a routine visit. SIGNS AND SYMPTOMS OF LABOR 1. Contractions every 10 minutes or more often 2. Clear, pink, or brownish fluid (water) leaking from vagina 3. Feeling that baby is pushing down, pressure 4. Low, dull backache 5. Cramps that feel like a period 6. Cramps with or without diarrhea If you notice any of the above symptoms, contact our office at [phone] and ask to speak with a nurse. After hours, you can call doctors registry at [phone] OR call [facility] at [phone] and ask to have the doctor marketing professional paged. If you consider this an emergency, dial 9--1 or go to your nearest emergency department. NEED HELP? Are you dealing with a violent or abusive relationship? Are you a victim of rape or sexual assult? Call [facility] ([place]) 24 hour Crisis Hotline: 682.933.4312 or 581-557-5884. MANUAL Your Guide to a Healthy manual is now on-line. Visit [email or web address] to download your free copy documented in this encounter [facility] 11-17-2024 Note [facility] 11-16-2024 Telephone encounter Note Reviewed BG data- responded as follows: Hector Hoda- I reviewed your BG data- these numbers continue to look great overall. Continue your current regimen as you are doing: NPH 90 units at bedtime. Humalog 23 units prior to breakfast, 23 units prior to lunch, Humalog 26 units prior to dinner. Take an + additional 5 units with Higher carb meals (camilo with * if/when you take the extra insulin so I can see if it is working or not). take 1/2 of the Humalog if you don't feel like you're going to eat enough or eat a lower carb meal. Camilo with 0 if you take less insulin. Will review again next week- thanks! KB [facility] 11-16-2024 Miscellaneous Notes Reviewed BG data- responded as follows: Hi Hoda- I reviewed your BG data- these numbers continue to look great overall. Continue your current regimen as you are doing: NPH 90 units at bedtime. Humalog 23 units prior to breakfast, 23 units prior to lunch, Humalog 26 units prior to dinner. Take an + additional 5 units with Higher carb meals (camilo with * if/when you take the extra insulin so I can see if it is working or not). take 1/2 of the Humalog if you don't feel like you're going to eat enough or eat a lower carb meal. Camilo with 0 if you take less insulin. Will review again next week- thanks! KB documented in this encounter [facility] 11-15-2024 Note Indication Evaluation of well-being Maternal obesity, BMI >30, Diabetes mellitus, History of preeclampsia Impression - Single, live, intrauterine . - presentation is cephalic. - The amniotic fluid volume is normal amount with an MVP of 2.3 cm and an IV of 7.9 cm. - The placenta is anterior, fundal. - BPP 01/14. Recommendations Continue planned testing Maternal Assessment Height 157 cm Height (ft) 5 ft Height (in) 2 in Physical Exam Initial weight (lb) 171 lb Initial BMI 31.28 kg/m Maternal assessment other: 3 Para 1 REMOTE READ Growth Overview Exam date GA BPD (mm) HC (mm) AC (mm) FL (mm) HL (mm) EFW (g) 07/13/2024 17w 3d 34.2 14% 133.5 25% 116.9 49% 23.1 39% 181 25% 08/10/2024 21w 3d 46.5 6% 184.8 32% 156.5 24% 32.6 21% 32.6 30% 361 11% 09/02/2024 24w 5d 55.6 3% 218.3 24% 192.4 19% 41.8 27% 632 11% 10/04/2024 29w 2d 64.4 <1% 258.9 16% 247 33% 51.5 10% 1213 13% 10/28/2024 32w 5d 73.2 <1% 283 9% 286.8 50% 59.6 18% 1860 19% Method Transabdominal ultrasound examination [place] . Number of fetuses: 1 Dating LMP on: 03/13/2024 GA by LMP 35 w + 2 d ADA by LMP: 12/18/2024 GA by prior assessment 35 w + 2 d ADA by prior assessment: 12/18/2024 Assigned: based on stated ADA, selected on 11/15/2024 Assigned GA 35 w + 2 d Assigned ADA: 12/18/2024 General Evaluation Cardiac activity present. FHR 132 bpm. movements: present. Presentation: cephalic Placenta: Placental site: anterior, fundal Umbilical cord: Cord vessels: 3 vessel cord Amniotic Fluid Assessment Amount of AF: normal amount MVP 2.3 cm. VI 7.9 cm. Q1 2.3 cm, Q2 1.9 cm, Q3 1.8 cm, Q4 2.0 cm Biophysical Profile 2: breathing movements 2: Gross body movements 2: tone 2: Amniotic fluid volume 8/8 Biophysical profile score Anatomy sex: female. Performed By: Idania Snyder RDMS, RVT Read By: Pooja Latham M.D. [facility] 11-15-2024 Progress note Formatting of t his note might be different from the original. SW- pt doing well. No pain, ERWIN, vision changes, vb, lof. Good FM. Having some irregular ctx's PE: Gen- NAD, well appearing Abd- Obese See flowsheet A/p 35 wk gestation - GBS bacteruria 05/07/24. Discussed PCN in labor - Pre existing diabetes: Ultrasound today and final report pending. BPP 01/14. Follows with endo. Cont scheduled twice weekly testing - HSV: Cont Acyclovir prophylaxis - RTO 1 wk Keshav Loving DO [facility] 11-15-2024 Miscellaneous Notes SW- pt doing well. No pain, ERWIN, vision changes, vb, lof. Good FM. Having some irregular ctx's PE: Gen- NAD, well appearing Abd- Obese See flowsheet A/p 35 wk gestation - GBS bacteruria 05/07/24. Discussed PCN in labor - Pre existing diabetes: Ultrasound today and final report pending. BPP 01/14. Follows with endo. Cont scheduled twice weekly testing - HSV: Cont Acyclovir prophylaxis - RTO 1 wk Keshav Loving DO documented in this encounter [facility] 11-15-2024 Instructions Rebeca Vazquez MA - 11/15/2024 8:24 AM EDT SEQUENTIAL SCREENINGS The [facility] offers sequential screenings for women who are interested in screenings for chromosomal abnormalities and certain defects during a . The sequential screen combines ultrasound and blood tests to determine the risk of chromosomal abnormalities, including Down's Syndrome (Trisomy 21) and Trisomy 18, as well as open neural tube defects including spina bifida. Ultrasound examination is performed between 11 weeks and 13 weeks gestational age. Blood tests are drawn after the ultrasound and again later in the between 15 and 21 weeks gestational age. Please let your physician know if you are interested in this testing. It will require an appointment with our firestopper technician. This is not an ultrasound performed by a physician in our office during a routine visit. SIGNS AND SYMPTOMS OF LABOR 1. Contractions every 10 minutes or more often 2. Clear, pink, or brownish fluid (water) leaking from vagina 3. Feeling that baby is pushing down, pressure 4. Low, dull backache 5. Cramps that feel like a period 6. Cramps with or without diarrhea If you notice any of the above symptoms, contact our office at [phone] and ask to speak with a nurse. After hours, you can call doctors registry at [phone] OR call [facility] at [phone] and ask to have the doctor marketing professional paged. If you consider this an emergency, dial 9-1-4 or go to your nearest emergency department. NEED HELP? Are you dealing with a violent or abusive relationship? Are you a victim of rape or sexual assult? Call [facility] ([place]) 24 hour Crisis Hotline: 287.871.8341 or 330-782-3372. MANUAL Your Guide to a Healthy manual is now on-line. Visit [email or web address] to download your free copy documented in this encounter [facility] 11-11-2024 Progress note Formatting of t his note might be different from the original. S: Melissa yBrne is a 29 year old female who presents at 12/18/2024, by Last Menstrual Period for a routine visit. Denies headache, visual changes, chest pain, shortness of breath, vaginal bleeding, leakage of fluid, or dysuria. Feeling well, no complaints. Good movement, No contractions O: See flow sheet Gen: No apparent distress Abd: Gravid, nontender Reactive NST BG In good control But did not eat breakfast today ASSESSMENT/PLAN: 1. Pre-existing type 2 diabetes mellitus in in third trimester ([facility]) - ICD9: 648.03, 250.00, ICD10: O24.113 (primary diagnosis) - Controlled - URINE OB DIP B/O 2. pruritus, third trimester ([facility]) - ICD9: 646.83, 698.9, ICD10: O99.713, L29.9 Labs normal - URINE OB DIP B/O 3. History of pre-eclampsia - ICD9: V13.29, ICD10: Z87.59 TruBP normal - URINE OB DIP B/O 4. H/O macrosomia in infant in prior , currently ([facility]) - ICD9: V23.49, ICD10: O09.299 - URINE OB DIP B/O 5. 34 weeks gestation of ([facility]) - ICD9: V22.2, ICD10: Z3A.34 - URINE OB DIP B/O Krys Kulkarni MD [facility] 11-11-2024 Miscellaneous Notes S: Melissa Byrne is a 29 year old female who presents at 12/18/2024, by Last Menstrual Period for a routine visit. Denies headache, visual changes, chest pain, shortness of breath, vaginal bleeding, leakage of fluid, or dysuria. Feeling well, no complaints. Good movement, No contractions O: See flow sheet Gen: No apparent distress Abd: Gravid, nontender Reactive NST BG In good control But did not eat breakfast today ASSESSMENT/PLAN: 1. Pre-existing type 2 diabetes mellitus in in third trimester ([facility]) - ICD9: 648.03, 250.00, ICD10: O24.113 (primary diagnosis) - Controlled - URINE OB DIP B/O 2. pruritus, third trimester ([facility]) - ICD9: 646.83, 698.9, ICD10: O99.713, L29.9 Labs normal - URINE OB DIP B/O 3. History of pre-eclampsia - ICD9: V13.29, ICD10: Z87.59 TruBP normal - URINE OB DIP B/O 4. H/O macrosomia in in prior , currently ([facility]) - ICD9: V23.49, ICD10: O09.299 - URINE OB DIP B/O 5. 34 weeks gestation of ([facility]) - ICD9: V22.2, ICD10: Z3A.34 - URINE OB DIP B/O Krys Kulkarni MD documented in this encounter [facility] 11-11-2024 Instructions Renetta Petersen MA - 11/11/2024 9:11 AM EDT SEQUENTIAL SCREENINGS The [facility] offers sequential screenings for women who are interested in screenings for chromosomal abnormalities and certain defects during a . The sequential screen combines ultrasound and blood tests to determine the risk of chromosomal abnormalities, including Down's Syndrome (Trisomy 21) and Trisomy 18, as well as open neural tube defects including spina bifida. Ultrasound examination is performed between 11 weeks and 13 weeks gestational age. Blood tests are drawn after the ultrasound and again later in the between 15 and 21 weeks gestational age. Please let your physician know if you are interested in this testing. It will require an appointment with our firestopper technician. This is not an ultrasound performed by a physician in our office during a routine visit. SIGNS AND SYMPTOMS OF LABOR 1. Contractions every 10 minutes or more often 2. Clear, pink, or brownish fluid (water) leaking from vagina 3. Feeling that baby is pushing down, pressure 4. Low, dull backache 5. Cramps that feel like a period 6. Cramps with or without diarrhea If you notice any of the above symptoms, contact our office at [phone] and ask to speak with a nurse. After hours, you can call doctors registry at [phone] OR call [facility] at [phone] and ask to have the doctor marketing professional paged. If you consider this an emergency, dial 02-07- or go to your nearest emergency department. NEED HELP? Are you dealing with a violent or abusive relationship? Are you a victim of rape or sexual assult? Call [facility] ([place]) 24 hour Crisis Hotline: 830.814.5714 or 653-111-9143. MANUAL Your Guide to a Healthy manual is now on-line. Visit [email or web address] to download your free copy documented in this encounter [facility] 11-08-2024 Note Indication Evaluation of well-being Maternal obesity, BMI >30, Diabetes mellitus, History of preeclampsia Impression - Single, live, intrauterine . - presentation is cephalic. - The amniotic fluid volume is normal amount with an MVP of 3.7 cm and an VI of 7.7 cm. - The placenta is anterior, fundal. - BPP 8/8. Recommendations Continue planned testing Maternal Assessment Height 157 cm Height (ft) 5 ft Height (in) 2 in Physical Exam Initial weight (lb) 171 lb Initial BMI 31.28 kg/m Maternal assessment other: 3 Para 1 REMOTE READ Growth Overview Exam date GA BPD (mm) HC (mm) AC (mm) FL (mm) HL (mm) EFW (g) 07/13/2024 17w 3d 34.2 14% 133.5 25% 116.9 49% 23.1 39% 181 25% 08/10/2024 21w 3d 46.5 6% 184.8 32% 156.5 24% 32.6 21% 32.6 30% 361 11% 09/02/2024 24w 5d 55.6 3% 218.3 24% 192.4 19% 41.8 27% 632 11% 10/04/2024 29w 2d 64.4 <1% 258.9 16% 247 33% 51.5 10% 1213 13% 10/28/2024 32w 5d 73.2 <1% 283 9% 286.8 50% 59.6 18% 1860 19% Method Transabdominal ultrasound examination [place] . Number of fetuses: 1 Dating LMP on: 03/13/2024 GA by LMP 34 w + 2 d ADA by LMP: 12/18/2024 GA by prior assessment 34 w + 2 d ADA by prior assessment: 12/18/2024 Assigned: based on stated ADA, selected on 11/08/2024 Assigned GA 34 w + 2 d Assigned ADA: 12/18/2024 General Evaluation Cardiac activity present. FHR 153 bpm. movements: present. Presentation: cephalic Placenta: Placental site: anterior, fundal Umbilical cord: Cord vessels: 3 vessel cord Amniotic Fluid Assessment Amount of AF: normal amount MVP 3.7 cm. VI 7.7 cm. Q1 3.7 cm, Q2 0.0 cm, Q3 1.8 cm, Q4 2.2 cm Biophysical Profile 2: breathing movements 2: Gross body movements 2: tone 2: Amniotic fluid volume 01/14 Biophysical profile score Anatomy sex: female. Performed By: Idania Snyder RDMS, RVT Read By: Pooja Latham M.D. [facility] 11-05-2024 History of Presen t illness Narrative NST SUMMARY PROVIDER ASSESSMENT AND INTERPRETATION Indications for NST: Diabetes - Insulin Controlled Baseline: 140 Variability: Moderate Accelerations: Present 15 X 15 Decelerations: None Interpretation: Reactive SIGNATURE: Krys Kulkarni MD documented in this encounter [facility] 11-05-2024 Note [facility] 11-05-2024 Progress note Formatting of t his note might be different from the original. S: Melissa Byrne is a 29 year old female who presents at 12/18/2024, by Last Menstrual Period for a routine visit. Denies headache, visual changes, chest pain, shortness of breath, vaginal bleeding, leakage of fluid, or dysuria. Feeling well. Good movement, No contractions O: See flow sheet Gen: No apparent distress Abd: Gravid, nontender Saw optho 10/18 -next appointment in Jan Dr Guillermo managing BG no changes to insulin this week NST- Reactive BPP on Friday Complains of itching all over including palms and soles. No rash. Started about a week ago ASSESSMENT/PLAN: 1. 33 weeks gestation of ([facility]) - ICD9: V22.2, ICD10: Z3A.33 (primary diagnosis) PTL precautions - URINE OB DIP B/O 2. pruritus Shemar acids and LFTs ordered - URINE OB DIP B/O 3. Pre-existing type 2 diabetes mellitus in in third trimester ([facility]) - ICD9: 648.03, 250.00, ICD10: O24.113 Sees endocrine for management. Stable this week Optho complete and f/u in Jan NST and BPP weekly - URINE OB DIP B/O 4. Supervision of high risk in third trimester ([facility]) - ICD9: V23.9, ICD10: O09.93 - URINE OB DIP B/O Krys Kulkarni MD [facility] 11-05-2024 Miscellaneous Notes S: Melissa Byrne is a 29 year old female who presents at 12/18/2024, by Last Menstrual Period for a routine visit. Denies headache, visual changes, chest pain, shortness of breath, vaginal bleeding, leakage of fluid, or dysuria. Feeling well. Good movement, No contractions O: See flow sheet Gen: No apparent distress Abd: Gravid, nontender Saw optho 10/18 -next appointment in Jan Dr Guillermo managing BG no changes to insulin this week NST- Reactive BPP on Friday Complains of itching all over including palms and soles. No rash. Started about a week ago ASSESSMENT/PLAN: 1. 33 weeks gestation of ([facility]) - ICD9: V22.2, ICD10: Z3A.33 (primary diagnosis) PTL precautions - URINE OB DIP B/O 2. pruritus Shemar acids and LFTs ordered - URINE OB DIP B/O 3. Pre-existing type 2 diabetes mellitus in in third trimester ([facility]) - ICD9: 648.03, 250.00, ICD10: O24.113 Sees endocrine for management. Stable this week Optho complete and f/u in Jan NST and BPP weekly - URINE OB DIP B/O 4. Supervision of high risk in third trimester ([facility]) - ICD9: V23.9, ICD10: O09.93 - URINE OB DIP B/O Krys Kulkarni MD documented in this encounter [facility] 11-05-2024 Instructions Rebeca Vazquez MA - 11/05/2024 10:18 AM EDT SEQUENTIAL SCREENINGS The [facility] offers sequential screenings for women who are interested in screenings for chromosomal abnormalities and certain defects during a . The sequential screen combines ultrasound and blood tests to determine the risk of chromosomal abnormalities, including Down's Syndrome (Trisomy 21) and Trisomy 18, as well as open neural tube defects including spina bifida. Ultrasound examination is performed between 11 weeks and 13 weeks gestational age. Blood tests are drawn after the ultrasound and again later in the between 15 and 21 weeks gestational age. Please let your physician know if you are interested in this testing. It will require an appointment with our firestopper technician. This is not an ultrasound performed by a physician in our office during a routine visit. SIGNS AND SYMPTOMS OF LABOR 1. Contractions every 10 minutes or more often 2. Clear, pink, or brownish fluid (water) leaking from vagina 3. Feeling that baby is pushing down, pressure 4. Low, dull backache 5. Cramps that feel like a period 6. Cramps with or without diarrhea If you notice any of the above symptoms, contact our office at [phone] and ask to speak with a nurse. After hours, you can call doctors registry at [phone] OR call [facility] at [phone] and ask to have the doctor marketing professional paged. If you consider this an emergency, dial 9-1-8 or go to your nearest emergency department. NEED HELP? Are you dealing with a violent or abusive relationship? Are you a victim of rape or sexual assult? Call [facility] ([place]) 24 hour Crisis Hotline: 365.570.2138 or 818-244-5693. MANUAL Your Guide to a Healthy manual is now on-line. Visit [email or web address] to download your free copy documented in this encounter [facility] 11-04-2024 Miscellaneous Notes Summary: Gardenia Wheeler Consult Note 11/04/24 [facility]sisters Title I Coordinator Note Hospital Name: [place] Completed by: Alicia Pitts RN Date: November 04, 2024 [facility] Resource Time: 2.5 hours Consult Code:A and D Consult Type: In-person outpatient Safety Concerns: No Melissa Byrne [id number] Preferred Name: Hoda OB Provider: Piper Julian Estimated Date of Delivery: 12/18/24 Designated Support People: fob- Alexi and mother- Anabella Labor Plan at time of Consult: Vaginal, Medicated, Breast milk Primary Themes During Consult: 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 She states that she was young, uneducated and that she didn't ask questions. Hoda dropped her daughter when she dozed off. She did not seek immediate medical attention. It was later discovered that the had a brain bleed. Hoda does not have custody of her daughter, Megan. Megan lives with her paternal grandparents who are getting ready to file for adoption. This current was not planned. This is a different FOB. She and the FOB have been together for almost 2 years. She states that she feels mostly safe in this relationship, but that if she was not expecting, she would not be with him. Labor & Strategies: Hoda is planning on an epidural, but she would like to delay the placement for longer than she did the first time. Hoda would like to utilize hydrotherapy, the birthing ball ad nitrous oxide prior to getting an epidural. Hoda would like hr nursing staff to closely monitor her cervical progress. Hoda would like to avoid internal monitoring if possible. Hoda would like to push in different positions w/ assistance- she would like to use a birthing bar and try on all fours. Hoda would like positive, encouraging coaching from her nurses. Hoda plans on utilizing perineal massage to help reduce her risk of a major tear, but she would like her team to slowly guide her daughter's head out so she doesn't bust out like her first. Hoda is interested in public cord blood banking. Concerns: Hoda has an extensive mental health history. She has not shaq taking the medication for her bipolar dx d/t the . She would like to breastfeed and will not re-start that medication until she is done nursing. She is concerned as to how she will feel . She sees a therapist and a psychiatrist regularly. She understands who and when to call if she feels she needs immediate assistance. Feeding Plan Details: Hoda would like to breastfeed. She was unable to nurse her first daughter, but it is a goal of hers to nurse this one, even if it's just for a few weeks. Safety/Support/Social Work: Hoda does not have any friends or family who live nearby or who are immediately available. She lives in a new apartment, and she knows 2 people in the building. Her mother lives 40 minutes away. Hoda does not work. She collects disability. She lives with Alexi, who works as a newspaper carrier. The last week of the month is very hard for them. She is aware that social service is available to talk. documented in this encounter [facility] 11-04-2024 Progress note Summary: Gardenia iraheta Consult Note 11/04/24 [facility] Title I Coordinator Note Hospital Name: [place] Completed by: Alicia Pitts RN Date: November 04, 2024 [facility]ters Resource Time: 2.5 hours Consult Code:A and D Consult Type: In-person outpatient Safety Concerns: No Melissa Byrne [phone] Preferred Name: Hoda OB Provider: Piper Julian Estimated Date of Delivery: 12/18/24 Designated Support People: fob- Alexi and mother- Anabella Labor Plan at time of Consult: Vaginal, Medicated, Breast milk Primary Themes During Consult: 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 She states that she was young, uneducated and that she didn't ask questions. Hoda dropped her daughter when she dozed off. She did not seek immediate medical attention. It was later discovered that the had a brain bleed. Hoda does not have custody of her daughter, Megan. Megan lives with her paternal grandparents who are getting ready to file for adoption. This current was not planned. This is a different FOB. She and the FOB have been together for almost 2 years. She states that she feels mostly safe in this relationship, but that if she was not expecting, she would not be with him. Labor & Strategies: Hoda is planning on an epidural, but she would like to delay the placement for longer than she did the first time. Hoda would like to utilize hydrotherapy, the birthing ball ad nitrous oxide prior to getting an epidural. Hoda would like hr nursing staff to closely monitor her cervical progress. Hoda would like to avoid internal monitoring if possible. Hoda would like to push in different positions w/ assistance- she would like to use a birthing bar and try on all fours. Hoda would like positive, encouraging coaching from her nurses. Hoda plans on utilizing perineal massage to help reduce her risk of a major tear, but she would like her team to slowly guide her daughter's head out so she doesn't bust out like her first. Hoda is interested in public cord blood banking. Concerns: Hoda has an extensive mental health history. She has not shaq taking the medication for her bipolar dx d/t the . She would like to breastfeed and will not re-start that medication until she is done nursing. She is concerned as to how she will feel . She sees a therapist and a psychiatrist regularly. She understands who and when to call if she feels she needs immediate assistance. Feeding Plan Details: Hoda would like to breastfeed. She was unable to nurse her first daughter, but it is a goal of hers to nurse this one, even if it's just for a few weeks. Safety/Support/Social Work: Hoda does not have any friends or family who live nearby or who are immediately available. She lives in a new apartment, and she knows 2 people in the building. Her mother lives 40 minutes away. Hoda does not work. She collects disability. She lives with Alexi, who works as a newspaper carrier. The last week of the month is very hard for them. She is aware that social service is available to talk. [facility] 11-04-2024 History of Presen t illness Narrative [facility] Medical Nutrition Therapy Follow up Visit Type: In-Person (Face to Face): Lydia Alonzo [facility] Nutritional Visit: MNT/DIABETES Medical Diagnosis: Type 2 Diabetes during NUTRITION DIAGNOISIS STATEMENT: From Last Encounter Date: 06/16/24. Altered nutrition related laboratory values related to endocrine dysfunction Type 2 Diabetes Mellitus during as evidence by elevated HBA1C or altered blood glucose levels. NUTRITION REASSESSMENT: Activity: Do you do a regular exercise: some walking/active around the house, no structured exercise routine Updated Diet History: Breakfast: pop tart or 4 eggs with slice of toast (whole wheat) Lunch: 1-2 chicken salad sandwiches Dinner: burger + <1c mac and cheese or soup, grilled cheese or protein + canned vegetables (green beans, peas); tacos (1 large shell or 2 small shells) with lean ground beef + tomato and cheese + sc or with cheesy rice HS Snack: ice cream, snack cake Fluids: more water/propel, zero sugar powerade, SF sprite ETOH: none Dining/eating out? Infrequently Diet History: Breakfast 8-8:30 am: sausage egg and cheese croissant sandwich Lunch 12-1 pm - goes to lunch with BF: grilled cheese or fast food (chicken or hamburger or sometimes just fries) Dinner 6-7 pm: soup and grilled cheese + canned vegetables (green beans, peas); tacos (1 large shell or 2 small shells) with lean ground beef + tomato and cheese + sc or with cheesy rice Snacks: Rarely, unless she is going low - will have 1/2 cup juice -has some protein yogurt Pt receives Fluids: water or sometimes powerade zero sugar or propel ETOH: none Dining/eating out? Yes, almost daily Appetite: low Weight History: Last 3 Encounter Wt Readings: Date: Wt: 11/04/2024 93.8 kg (206 lb 12.7 oz) 11/02/2024 94 kg (207 lb 3.2 oz) 10/25/2024 91.6 kg (202 lb) Pre- weight: 191 lbs Pre- BMI: 34.9 TW lbs [facility] Weight Gain Recommendations for : Pre- BMI Total Weight Gain During [place] <18.5 (Underweight) 28-40 lbs ---- Discuss with OB and/or Dietitian 18.5-24.9 (Normal weight) 25-35 lbs 37-54 lbs 25-29.9 (Overweight) 15-25 lbs 31-50 lbs >30 (Obese) 11-20 lbs 25-42 lbs Patient / Provider Comments: 06/16/24: -Type 2 diabetes antepartum -Pt has 7 year old daughter- had DM during that - had macrosomia, delivered in [place]. -She was initially diagnosed with type 2 diabetes at age 14 -reports she does not have her top teeth and can't wear her dentures because they are too big > she is planning on calling the dentist and rescheduling appt -can struggle with hard foods such a raw vegetables and takes small bites -current GA: 13w4d -she is using the Freestyle zoltan 3 plus CGM and checking BG with meter + logging -pt is taking 58 units of Humulin at bedtime and 18 units of Humalog with meals +scale/additional insulin as needed -she notices higher BG mid morning and around lunch time 11/04/24: -she is using a glucose meter and checking BG 4 times/day, log present and reviewed Fasting- 80-90 mg/dL 2 hour post meal - 108 -119 mg/dL -she is taking DM related medications as prescribed, reports no missed doses -receives [facility] benefits -lost upper dentures with no plan to replace Outpatient Medications as of 11/04/2024 Medication Sig acyclovir (ZOVIRAX) 400 mg tablet Take 1 tablet by mouth two times a day. insulin NPH (HUMULIN N NPH INSULIN KWIKPEN) 100 unit/mL (3 mL) injection pen 90 units at bedtime aspirin, enteric coated (ASPIRIN, ENTERIC COATED) 81 mg EC tablet TAKE 2 TABLETS BY MOUTH EVERY DAY AT BEDTIME lancets (BIO WellnessTOUCH DELICA PLUS LANCET) 30 gauge Use with blood glucose test four times a day. Insulin Dep? Yes insulin lispro (HUMALOG KWIKPEN INSULIN) 100 unit/mL 23 -23 - 26 units prior to each meal respectively + scale (upto 100 units/day) blood sugar diagnostic (ONETOUCH VERIO TEST STRIPS) test strip Use as instructed - TEST BLOOD SUGARS 4 TIMES DAILY Blood-Glucose Meter (ONETOUCH VERIO FLEX METER) Use to check blood glucose 4 times daily. busPIRone (BUSPAR) 15 mg tablet albuterol HFA (PROVENTIL HFA, VENTOLIN HFA) 90 mcg/actuation inhaler Inhale 2 Puffs as instructed every 6 hours as needed. VIT 10-IRON FUM-FOLIC ORAL Take by mouth. Insulin Friendship, Disposable, (BD ULTRAFINE III MINI PEN) 31 gauge x 3/16 4 times/day FLUoxetine (PROZAC) 40 mg capsule Take 20 mg by mouth. albuterol HFA (PROVENTIL HFA, VENTOLIN HFA) 90 mcg/actuation inhaler Inhale 2 Puffs as instructed. No current facility-administered medications on file as of 11/04/2024. Labs: Lab Results Component Value Date HBA1C 5.2 09/20/2024 HBA1C 7.9 06/07/2024 HBA1C 10.5 05/03/2024 HBA1C 6.6 12/16/2016 No results found for: CHOL, HDL, LDL, TG Glucose (mg/dL) Date Value 10/25/2024 103 Potassium (mmol/L) Date Value 10/25/2024 3.9 Sodium (mmol/L) Date Value 10/25/2024 136 Chloride (mmol/L) Date Value 10/25/2024 104 CO2 (mmol/L) Date Value 10/25/2024 18 Creatinine (mg/dL) Date Value 10/25/2024 0.39 BUN (mg/dL) Date Value 10/25/2024 5 Anion Gap (mmol/L) Date Value 10/25/2024 14 Calcium, Total (mg/dL) Date Value 10/25/2024 9.3 Protein, Total (g/dL) Date Value 10/25/2024 7.0 Albumin (g/dL) Date Value 10/25/2024 3.6 Bilirubin, Total (mg/dL) Date Value 10/25/2024 0.2 Alkaline Phosphatase (U/L) Date Value 10/25/2024 82 AST (U/L) Date Value 10/25/2024 9 ALT (U/L) Date Value 10/25/2024 11 GOAL Review from Last Encounter Date: 06/16/24. Improved BG, have BG within target ranges RESPONSE: in progress and met BARRIERS/FACTORS IMPACTING COMPLETION OF GOALS: none NUTRITION INTERVENTION: Diabetes: -Diabetes Basics: role of insulin in the body, relationship of glucose and insulin in the body, and symptoms of diabetes -Monitoring: BG targets post-, logging, and testing frequency -Healthy Eating: impact of carbs on BG, Plate Method, basic carb counting, foods with carbs, portion sizes, fiber, and carbs/protein/fat contribution to calories; additional calories needed with , protein sources -Medications: medication safety/timing and injectable insulin discussed: lispro (Humalog) and NPH Insulin -Physical Activity: impact of exercise on BG -Problem Solving: hypoglycemia s/sx/tx and pattern management -Reducing Risks: risks to mom and baby with elevated blood sugars during CHANGES IN TREATMENT AND RECOMMENDATIONS: Continue checking and logging BG 4 times/day Increase fruit & vegetable intake Pair protein with breakfast New Goal: Continue checking and logging BG 4 times/day Increase fruit & vegetable intake Pair protein with breakfast Adherence Potential to New Goals/Care Plan: Good. REVISION OR ADDITION OF NUTRITION DIAGNOSIS STATEMENT: Inadequate fiber intake related to food choices/nutrition knowledge deficit concerning fiber needs AEB diet recall. EDUCATIONAL MATERIALS: Diabetes Survival Skills, Planning Healthy Meals Plan of Care: f/u with RD on 01/10/25 Dr. Guillermo Consult Billing Type: Re-assess/15 minutes, 3 increment(s), 45 minutes Start Time: 11:06 AM End Time: 11:56 AM Carrie Larsen M.S., RDN, LD documented in this encounter [facility] 11-04-2024 Note [facility] 11-04-2024 History of Presen t illness Narrative Reason for consultation: f/u - type 2 diabetes antepartum- controlled Referring Physician:Dr Piper Julian MD My final recommendations will be communicated back to the requesting physician by way of shared Medical record or letter via US mail. HISTORY OF PRESENT ILLNESS; Ms. Byrne is a 29 year old F presenting at 33+ weeks gestation for f/u regarding type 2 diabetes antepartum. Her initial visit with me was 05/03. Pt has 7 year old daughter- had DM during that - had macrosomia, delivered in [place]. She was initially diagnosed with type 2 diabetes at age 14. States she has been following with ophthalmology, ? New dx of retinopathy- saw them october 18- was told things were stable. Does have peripheral neuropathy- states both parents have this as well. She has strong family hx of DM including mother, father, grandparents. She started taking insulin in 2022- however states she has bipolar disorder and discontinues medications during these episodes. Was on the following regimen at her first visit: Lantus 10 units at bedtime Humalog 4 units prior to meals Was switched to NPH + Humalog at her initial visit. She has been forwarding me her BG data weekly- most recently on 10/27- her current regimen is as follows: NPH 90 units at bedtime. Humalog 23 units prior to breakfast, 23 units prior to lunch, Humalog 26 units prior to dinner. Take an + additional 5 units with Higher carb meals (camilo with * if/when you take the extra insulin so I can see if it is working or not). take 1/2 of the Humalog if you don't feel like you're going to eat enough or eat a lower carb meal. Camilo with 0 if you take less insulin. Fasting- 80-90 mg/dL 2 hour post meal - 108 -119 mg/dL. Was using CGM but was having issues with signal loss- so now she is using glucometer and checking 4x per day. POC HbA1c at her previous visit was 5.2%. Her prepregnancy weight was 191 lbs and her current weight is 206 lbs. Hypoglycemia frequency: infrequent but present at times. Hypoglycemia awareness: Yes Hyperglycemia Symptoms: denies blurry vision reports polyuria denies polydipsia reports nocturia denies rapid weight loss Last visit with OB was 11/02. Last u/s growth was 10/28- EFW 19th centile, AC 50th, VI NL- having a girl! Growth scans every 4 weeks. No complaints/concerns at this time- doing ok overall. PAST MEDICAL HISTORY Diagnosis Date Asthma ([facility]) Bipolar H/O macrosomia in in prior , currently ([facility]) 05/07/2024 Herpes simplex type 2 (HSV-2) infection affecting , antepartum, unspecified trimester ([facility]) 04/19/2024 Hyperlipidemia LGA (large for gestational age) infant ([facility]) 12/23/2016 12/23/16 - >95% Polyhydramnios ([facility]) 01/01/2017 Pre-existing type 2 diabetes mellitus in in first trimester ([facility]) 06/15/2024 First trimester Hgb A1c 10.5%, now follows with Dr. Guillermo Recurrent UTI Type 2 diabetes mellitus ([facility]) PAST SURGICAL HISTORY Procedure Laterality Date CHOLECYSTECTOMY D&C, DIAG AND/OR THERAPEUTIC 2017 FAMILY HISTORY Problem Relation Age of Onset Hyperlipidemia Mother Diabetes Mother Hypertension Mother other (neuropathy) Mother Diabetes Father Heart Father Hypertension Father Hyperlipidemia Father Thyroid Sister Multiple Sclerosis Sister Depression Sister Anxiety disorder Sister other (carpal tunnel) Sister Hyperlipidemia Brother No Known Problems Brother Heart Maternal Grandmother Diabetes Maternal Grandfather Obesity Maternal Grandfather Diabetes Paternal Grandmother Heart Attack Paternal Grandmother Cancer Paternal Grandfather Social History Tobacco Use Smoking status: Every Day Current packs/day: 0.50 Average packs/day: 0.5 packs/day for 14.0 years (7.0 ttl pk-yrs) Types: Cigarettes Smokeless tobacco: Never Vaping Use Vaping status: Never Used Substance Use Topics Alcohol use: No Drug use: No Current Outpatient Medications Medication Sig Dispense Refill acyclovir (ZOVIRAX) 400 mg tablet Take 1 tablet by mouth two times a day. 60 tablet 3 insulin NPH (HUMULIN N NPH INSULIN KWIKPEN) 100 unit/mL (3 mL) injection pen 90 units at bedtime 45 mL 11 aspirin, enteric coated (ASPIRIN, ENTERIC COATED) 81 mg EC tablet TAKE 2 TABLETS BY MOUTH EVERY DAY AT BEDTIME 180 tablet 1 lancets (ONETOUCH DELICA PLUS LANCET) 30 gauge Use with blood glucose test four times a day. Insulin Dep? Yes 100 Each 11 insulin lispro (HUMALOG KWIKPEN INSULIN) 100 unit/mL 23 -23 - 26 units prior to each meal respectively + scale (upto 100 units/day) 45 mL 11 blood sugar diagnostic (ONETOUCH VERIO TEST STRIPS) test strip Use as instructed - TEST BLOOD SUGARS 4 TIMES DAILY 150 Each 11 Blood-Glucose Meter (ONETOUCH VERIO FLEX METER) Use to check blood glucose 4 times daily. 1 Each 0 busPIRone (BUSPAR) 15 mg tablet albuterol HFA (PROVENTIL HFA, VENTOLIN HFA) 90 mcg/actuation inhaler Inhale 2 Puffs as instructed every 6 hours as needed. VIT 10-IRON FUM-FOLIC ORAL Take by mouth. Insulin Friendship, Disposable, (BD ULTRAFINE III MINI PEN) 31 gauge x 3/16 4 times/day 150 Each 5 FLUoxetine (PROZAC) 40 mg capsule Take 20 mg by mouth. albuterol HFA (PROVENTIL HFA, VENTOLIN HFA) 90 mcg/actuation inhaler Inhale 2 Puffs as instructed. No current facility-administered medications for this visit. Allergies As of Date: 11/04/2024 Allergen Noted Reaction ALUMINUM-MAGNESIUM HYDROXIDE 02/05/2018 GI Upset ARIPIPRAZOLE 12/13/2022 Mental Status Change QUETIAPINE 10/04/2018 Other: See Comments and Shortness of Breath METOCLOPRAMIDE 02/10/2019 Vomiting, Hives, and Unknown PROMETHAZINE 07/11/2023 GI Upset ZOFRAN [ONDANSETRON] 07/11/2023 Vomiting ZOLOFT [SERTRALINE] 07/11/2023 Mental Status Change Fully Assessed 11/02/2024 REVIEW OF SYSTEMS: General: no fever and no chills- she lost weight initially, but now has gained, appropriate for Skin: no rashes, pruritis or dry skin Eyes: no blurred or double vision or eye pain Cardiac: denies chest pain, heart palpitations or orthopnea Pulmonary: denies wheezing, productive cough or exertional dyspnea GI: nausea and vomiting Musc: denies history of upper or lower extremity weakness Reproductive: gravid at 33+ weeks gestation, menses regular prior to the . Endocrine: complains of polyuria and nocturia Hematology: Negative for anemia, easy bleeding and bruising. PHYSICAL EXAM: BP 104/68 Pulse 102 Wt 93.8 kg (206 lb 12.7 oz) LMP 03/13/2024 (Exact Date) BMI 37.34 kg/m GENERAL: Alert, no distress, cooperative SKIN: Skin color, texture, turgor normal. No rashes or lesions. HEAD/SINUSES: No significant findings EYES: sclera non-icteric, EOMs intact. ABDOMEN: gravid at 33+ weeks EXTREMITIES: Normal exam of the extremities NEURO: AAO x 3, no focal deficits. The remainder of the physical exam is noncontributory. DATA: Hemoglobin A1C (%) Date Value 12/16/2016 6.6 Hemoglobin A1C (POCT) (%) Date Value 09/20/2024 5.2 POC HbA1c 06/07/24 improved to 7.9%. POC HbA1c at previous visit was 5.2% IMPRESSION: Ms. Kaur is a 29 year old female at 33+ weeks gestation here regarding type 2 diabetes antepartum. RECOMMENDATIONS: 1. The patient was counseled regarding the maternal and risks of hyperglycemia during . risks include, but are not limited to: congenital abnormalities, hypoxia and stillbirth, macrosomia, shoulder dystocia and hypoglycemia. Maternal risks include increased risks of pre-eclampsia and delivery. I discussed in detail with her that her risk of significant adverse outcome is high- 15-20% given her HbA1c over 10% at conception- has improved during the - most recently 5.2%. 2. I recommend the patient check her blood glucose fasting and 2 hour after each meal, we have provided her with a glucometer if she does not have one. The following blood glucose targets were discussed: fasting blood glucose concentration between 60-90 mg/dL, and 2 hour postprandial blood glucose concentration of less than 120 mg/dL. She was encouraged to limit carbohydrate intake, to walk after meals, (if not contraindicated) and will be scheduled with our dietitian, (if not done already). Regarding her blood glucose management, I recommend she do the followin) check your sugars fasting (60-90 mg/dL) and 2 hours post meal (less than 120 mg/dL) 2) forward me your blood glucose data weekly ([email or web address]) as you are doing for the duration of your . 3) continue current regimen as below: NPH 90 units at bedtime. Humalog 23 units prior to breakfast, 23 units prior to lunch, Humalog 26 units prior to dinner. Take an + additional 5 units with Higher carb meals (camilo with * if/when you take the extra insulin so I can see if it is working or not). take 1/2 of the Humalog if you don't feel like you're going to eat enough or eat a lower carb meal. Camilo with 0 if you take less insulin. 4) after delivery- reduce insulin as follows: NPH 20 units at bedtime Humalog 8 units prior to meals (+5 units with higher carb meals) 5) see me for post f/u Jan 20 (virtual or in person) 3. ophthalmology- she is following with ophthalmology- ? New DX of MARK cortes- she has f/u scheduled after delivery, in January. I spent a total of 30 minutes on the date of the service which included preparing to see the patient, [id number] patient care, completing clinical documentation, obtaining and/or reviewing separately obtained history, performing a medically appropriate examination, counseling and educating the patient/family/caregiver, and ordering medications, tests, or procedures. Kelsy Guillermo DO documented in this encounter [facility] 11-04-2024 Note [facility] 11-04-2024 Instructions Kelsy Guillermo DO - 11/04/2024 10:03 AM EDT 1) check your sugars fasting (60-90 mg/dL) and 2 hours post meal (less than 120 mg/dL) 2) forward me your blood glucose data weekly ([email or web address]) as you are doing for the duration of your . 3) continue current regimen as below: NPH 90 units at bedtime. Humalog 23 units prior to breakfast, 23 units prior to lunch, Humalog 26 units prior to dinner. Take an + additional 5 units with Higher carb meals (camilo with * if/when you take the extra insulin so I can see if it is working or not). take 1/2 of the Humalog if you don't feel like you're going to eat enough or eat a lower carb meal. Camilo with 0 if you take less insulin. 4) after delivery- reduce insulin as follows: POST REGIMEN: NPH 20 units at bedtime Humalog 8 units prior to meals (+5 units with higher carb meals) 5) see me for post f/u Jan 20 (virtual or in person) documented in this encounter [facility] 11-03-2024 Telephone encounter Note Order signed and faxed. Charlette Starkey RN [facility] 11-03-2024 Miscellaneous Notes Order signed and faxed. Charlette Starkey RN Breast pump order received from [employer]. To RR to sign. Charlette Starkey RN documented in this encounter [facility] 11-03-2024 Telephone encounter Note noted, we will encourage f/u w/ optho. Piper Julian MD [facility] 11-03-2024 Miscellaneous Notes noted, we will encourage f/u w/ optho. Piper Julian MD I called patient's retinal specialist and spoke with nurse Smith, in Dr Holloway's office at [facility] [phone] @ the request of Dr Pooja Latham. Dr Latham reviewed the letter that was sent from Dr Holloway from visit 10/18/2024. In the body of the letter was a statement that patient can no longer have steroid injections per MFM. I spoke with nurse and informed her that Dr Latham said patient may have steroid injections. Nurse said she would inform doctor. Letter has been scanned into [employer]. documented in this encounter [facility] 11-02-2024 Telephone encounter Note I called patient's retinal specialist and spoke with nurse Sarah, in Dr Holloway's office at [facility] [phone] @ the request of Dr Pooja Latham. Dr Latham reviewed the letter that was sent from Dr Holloway from visit 10/18/2024. In the body of the letter was a statement that patient can no longer have steroid injections per MFM. I spoke with nurse and informed her that Dr Latham said patient may have steroid injections. Nurse said she would inform doctor. Letter has been scanned into [employer]. [facility] 11-02-2024 Note HNO ID: [id number] Author: WILLIAM GRAMAJO MD Service: ? Author Type: Physician Type: Progress Notes Filed: 11/02/2024 11:32 Note Text: N/a [facility] 11-02-2024 History of Presen t illness Narrative N/a documented in this encounter [facility] 11-02-2024 Progress note Formatting of t his note might be different from the original. KJ - S: Hoda denies LOF, contractions or vaginal bleeding. O: 33w3d, see flow sheet SENSITIVE EXAM: Sensitive exam not performed. A/P: Assessment & Plan Pre-existing type 2 diabetes mellitus in in third trimester ([facility]) Managed by . Patient reports overall good control. Orders: URINE OB DIP B/O History of pre-eclampsia Continue aspirin Orders: URINE OB DIP B/O H/O macrosomia in infant in prior , currently ([facility]) EFW on growth US shows AGA and expected to be smaller than 1st baby. [facility] with [facility]. Orders: URINE OB DIP B/O 33 weeks gestation of ([facility]) Orders: URINE OB DIP B/O Request for sterilization Title 19 papers signed today Herpes simplex type 2 (HSV-2) infection affecting , antepartum, unspecified trimester ([facility]) On acyclovir prophylaxis William Gramajo MD [facility] 11-02-2024 Miscellaneous Notes KJ - S: Hoda denies LOF, contractions or vaginal bleeding. O: 33w3d, see flow sheet SENSITIVE EXAM: Sensitive exam not performed. A/P: Assessment & Plan Pre-existing type 2 diabetes mellitus in in third trimester ([facility]) Managed by . Patient reports overall good control. Orders: URINE OB DIP B/O History of pre-eclampsia Continue aspirin Orders: URINE OB DIP B/O H/O macrosomia in in prior , currently ([facility]) EFW on growth US shows AGA and expected to be smaller than 1st baby. Growth US with MFM today. Orders: URINE OB DIP B/O 33 weeks gestation of ([facility]) Orders: URINE OB DIP B/O Request for sterilization Title 19 papers signed today Herpes simplex type 2 (HSV-2) infection affecting , antepartum, unspecified trimester ([facility]) On acyclovir prophylaxis William Gramajo MD documented in this encounter [facility] 11-02-2024 Instructions Renetta Petersen MA - 11/02/2024 10:43 AM EDT SEQUENTIAL SCREENINGS The [facility] offers sequential screenings for women who are interested in screenings for chromosomal abnormalities and certain defects during a . The sequential screen combines ultrasound and blood tests to determine the risk of chromosomal abnormalities, including Down's Syndrome (Trisomy 21) and Trisomy 18, as well as open neural tube defects including spina bifida. Ultrasound examination is performed between 11 weeks and 13 weeks gestational age. Blood tests are drawn after the ultrasound and again later in the between 15 and 21 weeks gestational age. Please let your physician know if you are interested in this testing. It will require an appointment with our firestopper technician. This is not an ultrasound performed by a physician in our office during a routine visit. SIGNS AND SYMPTOMS OF LABOR 1. Contractions every 10 minutes or more often 2. Clear, pink, or brownish fluid (water) leaking from vagina 3. Feeling that baby is pushing down, pressure 4. Low, dull backache 5. Cramps that feel like a period 6. Cramps with or without diarrhea If you notice any of the above symptoms, contact our office at [phone] and ask to speak with a nurse. After hours, you can call doctors registry at [phone] OR call [facility] at [phone] and ask to have the doctor marketing professional paged. If you consider this an emergency, dial 9-5-7 or go to your nearest emergency department. NEED HELP? Are you dealing with a violent or abusive relationship? Are you a victim of rape or sexual assult? Call [facility] ([place]) 24 hour Crisis Hotline: 489.199.1330 or 056-784-6356. MANUAL Your Guide to a Healthy manual is now on-line. Visit [email or web address] to download your free copy documented in this encounter [facility] 11-02-2024 Note Indication Evaluation of well-being Maternal obesity, BMI >30, Diabetes mellitus, History of preeclampsia Impression - Single, live, intrauterine . - presentation is cephalic. - The amniotic fluid volume is normal amount with an MVP of 4.5 cm and an VI of 12.5 cm. - The placenta is anterior, fundal. - BPP 8/8. Recommendations Continue planned testing Maternal Assessment Height 157 cm Height (ft) 5 ft Height (in) 2 in Physical Exam Initial weight (lb) 171 lb Initial BMI 31.28 kg/m Maternal assessment other: 3 Para 1 Growth Overview Exam date GA BPD (mm) HC (mm) AC (mm) FL (mm) HL (mm) EFW (g) 07/13/2024 17w 3d 34.2 14% 133.5 25% 116.9 49% 23.1 39% 181 25% 08/10/2024 21w 3d 46.5 6% 184.8 32% 156.5 24% 32.6 21% 32.6 30% 361 11% 09/02/2024 24w 5d 55.6 3% 218.3 24% 192.4 19% 41.8 27% 632 11% 10/04/2024 29w 2d 64.4 <1% 258.9 16% 247 33% 51.5 10% 1213 13% 10/28/2024 32w 5d 73.2 <1% 283 9% 286.8 50% 59.6 18% 1860 19% Method Transabdominal ultrasound examination [place] . Number of fetuses: 1 Dating LMP on: 03/13/2024 GA by LMP 33 w + 3 d ADA by LMP: 12/18/2024 GA by prior assessment 33 w + 3 d ADA by prior assessment: 12/18/2024 Assigned: based on stated ADA, selected on 10/28/2024 Assigned GA 33 w + 3 d Assigned ADA: 12/18/2024 General Evaluation Cardiac activity present. FHR 145 bpm. movements: present. Presentation: cephalic Placenta: Placental site: anterior, fundal Umbilical cord: Cord vessels: 3 vessel cord Amniotic Fluid Assessment Amount of AF: normal amount MVP 4.5 cm. VI 12.5 cm. Q1 2.5 cm, Q2 4.0 cm, Q3 4.5 cm, Q4 1.4 cm Biophysical Profile 2: breathing movements 2: Gross body movements 2: tone 2: Amniotic fluid volume 8/8 Biophysical profile score Anatomy sex: female. Performed By: Idania Snyder RDMS, RVT Read By: Pooja Latham M.D. [facility] 10-29-2024 Telephone encounter Note Breast pump order received from [employer]. To RR to sign. Charlette Starkey RN [facility] 10-25-2024 Progress note Formatting of t his note might be different from the original. RR- VB No. LOF No. CTXS No. Movement: present. Other c/o: exposure 2 weeks ago to parvo. She denies illness symptoms Medication list reviewed. SENSITIVE EXAM: Sensitive exam not performed. Physical Exam See Flow Sheet Abd: soft, nontender, gravid Ext: edema: 1+ A/P 32w2d Estimated Date of Delivery: 12/18/24 Assessment & Plan Pre-existing type 2 diabetes mellitus in in third trimester (HCC) Orders: ECG COMPLETE URINE OB DIP B/O PARVOVIRUS B19 IGG+M; Future COMPLETE BLOOD COUNT; Future COMPREHENSIVE METABOLIC PANEL; Future Supervision of high risk in third trimester ([facility]) Orders: ECG COMPLETE URINE OB DIP B/O PARVOVIRUS B19 IGG+M; Future COMPLETE BLOOD COUNT; Future COMPREHENSIVE METABOLIC PANEL; Future Exposure to parvovirus Orders: PARVOVIRUS B19 IGG+M; Future COMPLETE BLOOD COUNT; Future COMPREHENSIVE METABOLIC PANEL; Future History of pre-eclampsia Orders: COMPLETE BLOOD COUNT; Future COMPREHENSIVE METABOLIC PANEL; Future check titers for parvo report illness symptoms ECG today NST reactive cont. close f/u Endocrine manages DM growth scans up to date will contact optho as patient reports she doesn't have to go back unless visual changes but want to confirm this cont acyclovir for HSV prophylaxis Piper Julian M.D. [facility] 10-25-2024 Miscellaneous Notes RR- VB No. LOF No. CTXS No. Movement: present. Other c/o: exposure 2 weeks ago to parvo. She denies illness symptoms Medication list reviewed. SENSITIVE EXAM: Sensitive exam not performed. Physical Exam See Flow Sheet Abd: soft, nontender, gravid Ext: edema: 1+ A/P 32w2d Estimated Date of Delivery: 12/18/24 Assessment & Plan Pre-existing type 2 diabetes mellitus in in third trimester (HCC) Orders: ECG COMPLETE URINE OB DIP B/O PARVOVIRUS B19 IGG+M; Future COMPLETE BLOOD COUNT; Future COMPREHENSIVE METABOLIC PANEL; Future Supervision of high risk in third trimester ([facility]) Orders: ECG COMPLETE URINE OB DIP B/O PARVOVIRUS B19 IGG+M; Future COMPLETE BLOOD COUNT; Future COMPREHENSIVE METABOLIC PANEL; Future Exposure to parvovirus Orders: PARVOVIRUS B19 IGG+M; Future COMPLETE BLOOD COUNT; Future COMPREHENSIVE METABOLIC PANEL; Future History of pre-eclampsia Orders: COMPLETE BLOOD COUNT; Future COMPREHENSIVE METABOLIC PANEL; Future check titers for parvo report illness symptoms ECG today NST reactive cont. close f/u Endocrine manages DM growth scans up to date will contact optho as patient reports she doesn't have to go back unless visual changes but want to confirm this cont acyclovir for HSV prophylaxis Piper Julian M.D. documented in this encounter [facility] 10-25-2024 Note [facility] 10-25-2024 History of Presen t illness Narrative NST SUMMARY PROVIDER ASSESSMENT AND INTERPRETATION Melissa Byrne is a 29 year old female, , who is at 32w2d with an ADA of 12/18/2024, by Last Menstrual Period dating method. Indications for NST: Diabetes - Insulin Controlled Baseline: 145 Variability: Moderate Accelerations: Present 15 X 15 Decelerations: None Contractions: TOCO: None Interpretation: Reactive SIGNATURE: Piper Julian MD documented in this encounter [facility] 10-25-2024 Instructions Renetta Petersen MA - 10/25/2024 9:26 AM EDT SEQUENTIAL SCREENINGS The [facility] offers sequential screenings for women who are interested in screenings for chromosomal abnormalities and certain defects during a . The sequential screen combines ultrasound and blood tests to determine the risk of chromosomal abnormalities, including Down's Syndrome (Trisomy 21) and Trisomy 18, as well as open neural tube defects including spina bifida. Ultrasound examination is performed between 11 weeks and 13 weeks gestational age. Blood tests are drawn after the ultrasound and again later in the between 15 and 21 weeks gestational age. Please let your physician know if you are interested in this testing. It will require an appointment with our firestopper technician. This is not an ultrasound performed by a physician in our office during a routine visit. SIGNS AND SYMPTOMS OF LABOR 1. Contractions every 10 minutes or more often 2. Clear, pink, or brownish fluid (water) leaking from vagina 3. Feeling that baby is pushing down, pressure 4. Low, dull backache 5. Cramps that feel like a period 6. Cramps with or without diarrhea If you notice any of the above symptoms, contact our office at [phone] and ask to speak with a nurse. After hours, you can call doctors registry at [phone] OR call [facility] at [phone] and ask to have the doctor marketing professional paged. If you consider this an emergency, dial 9--1 or go to your nearest emergency department. NEED HELP? Are you dealing with a violent or abusive relationship? Are you a victim of rape or sexual assult? Call [facility] ([place]) 24 hour Crisis Hotline: 638.510.8299 or 148-330-6073. MANUAL Your Guide to a Healthy manual is now on-line. Visit [email or web address] to download your free copy documented in this encounter [facility] 10-19-2024 Telephone encounter Note Reviewed BG data- responded as follows: Good afternoon- I reviewed your BG data- these numbers continue to look good overall and remain at goal for - continue your current regimen: NPH 90 units at bedtime. Humalog 23 units prior to breakfast, 23 units prior to lunch, Humalog 26 units prior to dinner. Take an + additional 5 units with Higher carb meals (camilo with * if/when you take the extra insulin so I can see if it is working or not). take 1/2 of the Humalog if you don't feel like you're going to eat enough or eat a lower carb meal. Camilo with 0 if you take less insulin. Will review again next week- thanks! KB [facility] 10-19-2024 Miscellaneous Notes Reviewed BG data- responded as follows: Good afternoon- I reviewed your BG data- these numbers continue to look good overall and remain at goal for - continue your current regimen: NPH 90 units at bedtime. Humalog 23 units prior to breakfast, 23 units prior to lunch, Humalog 26 units prior to dinner. Take an + additional 5 units with Higher carb meals (camilo with * if/when you take the extra insulin so I can see if it is working or not). take 1/2 of the Humalog if you don't feel like you're going to eat enough or eat a lower carb meal. Camilo with 0 if you take less insulin. Will review again next week- thanks! KB documented in this encounter [facility] 10-18-2024 Progress note Formatting of t his note might be different from the original. DM-Pt doing well. Denies vaginal Bleeding, Leaking fluid, or regular Contractions. Pt reports good movement Physical Exam: Gen: female in no apparent distress Abd: soft, Gravid. Non tender to palpation. See flow sheet @ 31 weeks Assessment & Plan Supervision of high risk in third trimester ([facility]) Orders: URINE OB DIP B/O Pre-existing type 2 diabetes mellitus in in third trimester ([facility]) Sees Endocrinology - states pretty well controlled no adjustment on Insulin per endocrinology last A1c 5.2 down from 7.9 Orders: URINE OB DIP B/O Herpes simplex type 2 (HSV-2) infection affecting , antepartum, unspecified trimester ([facility]) Taking acyclovir H/O macrosomia in infant in prior , currently ([facility]) Growth us scheduled History of pre-eclampsia Continue ASA 31 weeks gestation of ([facility]) Kick counts and labor reviewed NSTs and BPP scheduled Orders: URINE OB DIP B/O Whit Patel MD [facility] 10-18-2024 Miscellaneous Notes DM-Pt doing well. Denies vaginal Bleeding, Leaking fluid, or regular Contractions. Pt reports good movement Physical Exam: Gen: female in no apparent distress Abd: soft, Gravid. Non tender to palpation. See flow sheet @ 31 weeks Assessment & Plan Supervision of high risk in third trimester ([facility]) Orders: URINE OB DIP B/O Pre-existing type 2 diabetes mellitus in in third trimester ([facility]) Sees Endocrinology - states pretty well controlled no adjustment on Insulin per endocrinology last A1c 5.2 down from 7.9 Orders: URINE OB DIP B/O Herpes simplex type 2 (HSV-2) infection affecting , antepartum, unspecified trimester ([facility]) Taking acyclovir H/O macrosomia in infant in prior , currently ([facility]) Growth us scheduled History of pre-eclampsia Continue ASA 31 weeks gestation of ([facility]) Kick counts and labor reviewed NSTs and BPP scheduled Orders: URINE OB DIP B/O Whit Patel MD documented in this encounter [facility] 10-18-2024 Instructions Rebeca Vazquez MA - 10/18/2024 1:34 PM EDT SEQUENTIAL SCREENINGS The [facility] offers sequential screenings for women who are interested in screenings for chromosomal abnormalities and certain defects during a . The sequential screen combines ultrasound and blood tests to determine the risk of chromosomal abnormalities, including Down's Syndrome (Trisomy 21) and Trisomy 18, as well as open neural tube defects including spina bifida. Ultrasound examination is performed between 11 weeks and 13 weeks gestational age. Blood tests are drawn after the ultrasound and again later in the between 15 and 21 weeks gestational age. Please let your physician know if you are interested in this testing. It will require an appointment with our firestopper technician. This is not an ultrasound performed by a physician in our office during a routine visit. SIGNS AND SYMPTOMS OF LABOR 1. Contractions every 10 minutes or more often 2. Clear, pink, or brownish fluid (water) leaking from vagina 3. Feeling that baby is pushing down, pressure 4. Low, dull backache 5. Cramps that feel like a period 6. Cramps with or without diarrhea If you notice any of the above symptoms, contact our office at [phone] and ask to speak with a nurse. After hours, you can call [facility] at [phone] OR call [facility] at [phone] and ask to have the doctor marketing professional paged. If you consider this an emergency, dial 9-1-1 or go to your nearest emergency department. NEED HELP? Are you dealing with a violent or abusive relationship? Are you a victim of rape or sexual assult? Call [facility] ([place]) 24 hour Crisis Hotline: 387.870.2526 or 047-341-4175. MANUAL Your Guide to a Healthy manual is now on-line. Visit [email or web address] to download your free copy documented in this encounter [facility] 10-16-2024 History and physi vicenta note [facility] 10-12-2024 Note HNO ID: [id number] Author: PAMELA HASKINS MD Service: ? Author Type: Physician Type: Progress Notes Filed: 10/13/2024 09:11 Note Text: Dr. Piper Julian NAME: Melissa Mckoy Chavez CLINIC Number.: [id number] Date of : 1995 Date of Visit: October 12, [address] Julian: Ms. Melissa Byrne was seen for echocardiogram and pediatric cardiology consultation on October 12, 2024. She is a 29 year old woman, referred initially due to preexisting type 2 DM, on insulin. She also has a history of bipolar, asthma, dyslipidemia, obesity, recurrent UTI, HSV-2. Anatomy ultrasound was suboptimal due to acoustic windows and she has a follow up scheduled. There is no family history of congenital heart disease. Initial echocardiogram at 23 weeks 3 days gestation was suboptimal and she returns today for follow up. echocardiogram on October 12, 2024 at 30 weeks 3 days gestation shows atrial situs solitus with levocardia. SVC and IVC return normally to the right atrium. One right and one left pulmonary vein were seen returning normally into the left atrium. The atria were normal in size and there was normal right to left shunting at the atrial level. The left and right ventricles were normal in size and shortening. No ventricular hypertrophy. The ventricular septum appeared intact. Normal mitral and tricuspid valves without significant regurgitation. The left and right ventricular outflow tracts were widely patent. The aortic and ductal arches were widely patent. heart rate and rhythm were regular and a trivial pericardial effusion was seen. Normal Doppler of umbilical artery, hepatic vein, ductus venosus. In summary, the echocardiogram today showed normal intracardiac anatomy with normal ventricular function and normal heart rate and rhythm. There is a trivial pericardial effusion. We discussed these findings with Ms. Melissa Byrne. In addition, the limitations of the echocardiogram and echocardiography in general, including the inability to exclude ASDs, some VSDs, minor valvar abnormalities, partial anomalous pulmonary venous return, persistent patent ductus arteriosus, and coarctation of the aorta, were explained. Based on these data we did not recommend any specific further or cardiac evaluation, though we would be happy to see her back should new concerns arise. If the pericardial effusion appears larger on ultrasounds, we are happy to see her back. It appears trivial today. Thank you for allowing me to participate in the care of your patient and please do not hesitate to contact me if I can be any further assistance. During this patient visit I have reviewed prior notes and imaging including from referring maternal medicine specialists, devoted time to counseling/coordination of care regarding results of the echocardiogram, clincal manifestations of the identified disease, prognosis, test results and treatment options, formulated and provided my recommendations to other caregivers by verbal and written communication as appropriate and assisted in coordination of care as needed. I spent a total of 50 minutes on the date of the service which included preparing to see the patient, [id number] patient care, completing clinical documentation, obtaining and/or reviewing separately obtained history, performing a medically appropriate examination, counseling and educating the patient/family/caregiver, ordering medications, tests, or procedures, communicating with other HCPs (not separately reported), independently interpreting results (not separately reported), communicating results to the patient/family/caregiver, and care coordination (not separately reported). Sincerely, Dr. Pamela Haskins [facility] 10-12-2024 History of Present illness Narrative Dr. Piper Julian NAME: Melissa Byrne CLINIC Number.: [id number] Date of : 1995 Date of Visit: October 12, [address] Julian: Ms. Melissa Byrne was seen for echocardiogram and pediatric cardiology consultation on October 12, 2024. She is a 29 year old woman, referred initially due to preexisting type 2 DM, on insulin. She also has a history of bipolar, asthma, dyslipidemia, obesity, recurrent UTI, HSV-2. Anatomy ultrasound was suboptimal due to acoustic windows and she has a follow up scheduled. There is no family history of congenital heart disease. Initial echocardiogram at 23 weeks 3 days gestation was suboptimal and she returns today for follow up. echocardiogram on October 12, 2024 at 30 weeks 3 days gestation shows atrial situs solitus with levocardia. SVC and IVC return normally to the right atrium. One right and one left pulmonary vein were seen returning normally into the left atrium. The atria were normal in size and there was normal right to left shunting at the atrial level. The left and right ventricles were normal in size and shortening. No ventricular hypertrophy. The ventricular septum appeared intact. Normal mitral and tricuspid valves without significant regurgitation. The left and right ventricular outflow tracts were widely patent. The aortic and ductal arches were widely patent. heart rate and rhythm were regular and a trivial pericardial effusion was seen. Normal Doppler of umbilical artery, hepatic vein, ductus venosus. In summary, the echocardiogram today showed normal intracardiac anatomy with normal ventricular function and normal heart rate and rhythm. There is a trivial pericardial effusion. We discussed these findings with Ms. Melissa Byrne. In addition, the limitations of the echocardiogram and echocardiography in general, including the inability to exclude ASDs, some VSDs, minor valvar abnormalities, partial anomalous pulmonary venous return, persistent patent ductus arteriosus, and coarctation of the aorta, were explained. Based on these data we did not recommend any specific further or cardiac evaluation, though we would be happy to see her back should new concerns arise. If the pericardial effusion appears larger on ultrasounds, we are happy to see her back. It appears trivial today. Thank you for allowing me to participate in the care of your patient and please do not hesitate to contact me if I can be any further assistance. During this patient visit I have reviewed prior notes and imaging including from referring maternal medicine specialists, devoted time to counseling/coordination of care regarding results of the echocardiogram, clincal manifestations of the identified disease, prognosis, test results and treatment options, formulated and provided my recommendations to other caregivers by verbal and written communication as appropriate and assisted in coordination of care as needed. I spent a total of 50 minutes on the date of the service which included preparing to see the patient, [id number] patient care, completing clinical documentation, obtaining and/or reviewing separately obtained history, performing a medically appropriate examination, counseling and educating the patient/family/caregiver, ordering medications, tests, or procedures, communicating with other HCPs (not separately reported), independently interpreting results (not separately reported), communicating results to the patient/family/caregiver, and care coordination (not separately reported). Sincerely, Dr. Pamela Haskins documented in this encounter [facility] 10-08-2024 Telephone encounter Note Reviewed B data- responded as follows: Good afternoon- I reviewed your BG data- these numbers remain at goal- continue your current regimen: NPH 90 units at bedtime. Humalog 23 units prior to breakfast, 23 units prior to lunch, Humalog 26 units prior to dinner. Take an + additional 5 units with Higher carb meals (camilo with * if/when you take the extra insulin so I can see if it is working or not). take 1/2 of the Humalog if you don't feel like you're going to eat enough or eat a lower carb meal. Camilo with 0 if you take less insulin. Will review again next week- thanks! KB [facility] 10-08-2024 Miscellaneous Notes Reviewed B data- responded as follows: Good afternoon- I reviewed your BG data- these numbers remain at goal- continue your current regimen: NPH 90 units at bedtime. Humalog 23 units prior to breakfast, 23 units prior to lunch, Humalog 26 units prior to dinner. Take an + additional 5 units with Higher carb meals (camilo with * if/when you take the extra insulin so I can see if it is working or not). take 1/2 of the Humalog if you don't feel like you're going to eat enough or eat a lower carb meal. Camilo with 0 if you take less insulin. Will review again next week- thanks! KB documented in this encounter [facility] 10-04-2024 Progress note Formatting of t his note might be different from the original. RR- VB No. LOF No. CTXS No. Movement: present. Other c/o:some pain w/ certain movements. Discomfort at times w/ certain positions Medication list reviewed. SENSITIVE EXAM: Sensitive exam not performed. Physical Exam See Flow Sheet Abd: soft, nontender, gravid Ext: edema: Trace, symetrical: Yes, DTRS: 2+, clonus: Absent A/P 29w2d Estimated Date of Delivery: 12/18/24 Assessment & Plan History of pre-eclampsia Orders: ECG COMPLETE; Future NON-STRESS TEST; Standing PROTEIN / CREATININE RATIO; Future BACTERIAL CULTURE, URINE; Future 29 weeks gestation of ([facility]) Orders: ECG COMPLETE; Future NON-STRESS TEST; Standing PROTEIN / CREATININE RATIO; Future BACTERIAL CULTURE, URINE; Future Pre-existing type 2 diabetes mellitus in in third trimester ([facility]) Orders: ECG COMPLETE; Future NON-STRESS TEST; Standing PROTEIN / CREATININE RATIO; Future BACTERIAL CULTURE, URINE; Future Supervision of high risk in third trimester ([facility]) Orders: ECG COMPLETE; Future NON-STRESS TEST; Standing PROTEIN / CREATININE RATIO; Future BACTERIAL CULTURE, URINE; Future 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 [facility] 10-04-2024 Miscellaneous Notes RR- VB No. LOF No. CTXS No. Movement: present. Other c/o:some pain w/ certain movements. Discomfort at times w/ certain positions Medication list reviewed. SENSITIVE EXAM: Sensitive exam not performed. Physical Exam See Flow Sheet Abd: soft, nontender, gravid Ext: edema: Trace, symetrical: Yes, DTRS: 2+, clonus: Absent A/P 29w2d Estimated Date of Delivery: 12/18/24 Assessment & Plan History of pre-eclampsia Orders: ECG COMPLETE; Future NON-STRESS TEST; Standing PROTEIN / CREATININE RATIO; Future BACTERIAL CULTURE, URINE; Future 29 weeks gestation of ([facility]) Orders: ECG COMPLETE; Future NON-STRESS TEST; Standing PROTEIN / CREATININE RATIO; Future BACTERIAL CULTURE, URINE; Future Pre-existing type 2 diabetes mellitus in in third trimester ([facility]) Orders: ECG COMPLETE; Future NON-STRESS TEST; Standing PROTEIN / CREATININE RATIO; Future BACTERIAL CULTURE, URINE; Future Supervision of high risk in third trimester ([facility]) Orders: ECG COMPLETE; Future NON-STRESS TEST; Standing PROTEIN / CREATININE RATIO; Future BACTERIAL CULTURE, URINE; Future 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 documented in this encounter [facility] 10-04-2024 Instructions Teri Jack MA - 10/04/2024 11:10 AM EDT SEQUENTIAL SCREENINGS The [facility] offers sequential screenings for women who are interested in screenings for chromosomal abnormalities and certain defects during a . The sequential screen combines ultrasound and blood tests to determine the risk of chromosomal abnormalities, including Down's Syndrome (Trisomy 21) and Trisomy 18, as well as open neural tube defects including spina bifida. Ultrasound examination is performed between 11 weeks and 13 weeks gestational age. Blood tests are drawn after the ultrasound and again later in the between 15 and 21 weeks gestational age. Please let your physician know if you are interested in this testing. It will require an appointment with our firestopper technician. This is not an ultrasound performed by a physician in our office during a routine visit. SIGNS AND SYMPTOMS OF LABOR 1. Contractions every 10 minutes or more often 2. Clear, pink, or brownish fluid (water) leaking from vagina 3. Feeling that baby is pushing down, pressure 4. Low, dull backache 5. Cramps that feel like a period 6. Cramps with or without diarrhea If you notice any of the above symptoms, contact our office at [phone] and ask to speak with a nurse. After hours, you can call doctors registry at [phone] OR call [facility] at [phone] and ask to have the doctor marketing professional paged. If you consider this an emergency, dial 9--1 or go to your nearest emergency department. NEED HELP? Are you dealing with a violent or abusive relationship? Are you a victim of rape or sexual assult? Call [facility] ([place]) 24 hour Crisis Hotline: 621.782.4049 or 324-233-7664. MANUAL Your Guide to a Healthy manual is now on-line. Visit [email or web address] to download your free copy documented in this encounter [facility] 09-27-2024 Telephone encounter Note [employer] message sent to Pt and Pt read on 09/27/24. Juana Terrazas RN [facility] 09-27-2024 Miscellaneous Notes [employer] message sent to Pt and Pt read on 09/27/24. Juana Terrazas RN Rx sent 28w2d Pt calling as she saw she was + for Bacterial Vaginosis and asking for tx plan. Dx: Vaginal discharge Specimen Information: Vagina; Swab 0 Result Notes Component Ref Range & Units 3 d ago Bacterial vaginosis Not detected Detected Abnormal Resulting Agency CCM Specimen Collected: 09/24/24 9:17 AM EDT Please review in LEE absence. Juana Terrazas RN documented in this encounter [facility] 09-27-2024 Telephone encounter Note Rx sent [facility] 09-27-2024 Telephone encounter Note 28w2d Pt calling as she saw she was + for Bacterial Vaginosis and asking for tx plan. Dx: Vaginal discharge Specimen Information: Vagina; Swab 0 Result Notes Component Ref Range & Units 3 d ago Bacterial vaginosis Not detected Detected Abnormal Resulting Agency CCM Specimen Collected: 09/24/24 9:17 AM EDT Please review in LEE absence. Juana Terrazas RN [facility] 09-24-2024 Evaluation note Diagnosis Onset Date Resolution 27 weeks gestation of acute September 24, 2024 1:48pm Uterine irritability acute Apri l 2024 1:48pm 31 weeks gestation of acute October 16, 2024 5 :10pm Asthma acute October 16, 2024 5:10pm Bipolar 1 disorder acute October 162024 5:10pm History of herpes genitalis acute October 16, 2024 5 :10pm Obesity affecting acute October 16, 2024 5 :10pm Type 2 diabetes mellitus affecting , antepartum acute October 16, 2024 5:10pm [facility] Work Phone: 1(368) 828-561104-18-2025 Telephone encounter Note* Telephone Encounter - Kelsy Guillermo DO - 09/24/2024 3:08 PM EDT Reviewed BG data- responded as follows: Good afternoon- I reviewed your BG data- these numbers continue to look great and remain at goal for . Continue your current regimen as you are doing: NPH 90 units at bedtime. Humalog 23 units prior to breakfast, 23 units prior to lunch, Humalog 26 units prior to dinner. Take an + additional 5 units with Higher carb meals (camilo with * if/when you take the extra insulin so I can see if it is working or not). take 1/2 of the Humalog if you don't feel like you're going to eat enough or eat a lower carb meal.Camilo with 0 if you take less insulin. Will review again next week- thanks! KB [facility]04-18-2025 Miscellaneous Notes* Telephone Encounter - Kelsy Guillermo DO - 09/24/2024 3:08 PM EDT Reviewed BG data- responded as follows: Good afternoon- I reviewed your BG data- these numbers continue to look great and remain at goal for . Continue your current regimen as you are doing: NPH 90 units at bedtime. Humalog 23 units prior to breakfast, 23 units prior to lunch, Humalog 26 units prior to dinner. Take an + additional 5 units with Higher carb meals (camilo with * if/when you take the extra insulin so I can see if it is working or not). take 1/2 of the Humalog if you don't feel like you're going to eat enough or eat a lower carb meal.Camilo with 0 if you take less insulin. Will review again next week- thanks! KB documented [facility] encounter[facility] History of Present illness Narrative* Leonie Waldron APRN.ONUR - 09/24/2024 8:55 AM EDT LEE-S: Melissa Byren is a 29 year old female who presents at 27w6d with ADA:12/18/2024, by Last Menstrual Period for a problem visit. Denies headache, visual changes, chest pain, shortness of breath, vaginal bleeding, leakage of fluid, or dysuria. Presents with vulvar itching and urinary frequency. History of HSV and uncertain if she is having an outbreak. Having some intermittent cramping butno signs of labor. O: See flow sheet Gen: No apparent distress Abd: Gravid, nontender VE: pink rugae, no vulvar lesions. Small amount of yellow vaginal discharge, no odor. SENSITIVE EXAMINATION CONSENT: The sensitive examination was discussed with the Patient or Patient's Authorized Workforce Staffing Advisor. Asapplicable, any other physician, advance practice provider, medical student, or other health professional student that will be observing or involved in the sensitive examination for educational or training purposes was discussed with the Patient or Authorized Workforce Staffing Advisor. The Patient or Authorized Workforce Staffing Advisor has agreed to proceed with the sensitive examination. ASSESSMENT/PLAN: 1. Supervision of high risk in second trimester 2. 27 weeks gestation of 3. Burning with urination -Positive ketones and leukocytes -Due to symptoms will treat with Macrobid 100mg PO BID x 7 days -Urine culture sent -Increase hydration -If worsening cramping discussed when to call 4. Vaginal discharge -BV and yeast today, will treat if indicated by results PTL precautions reviewed and when to call RTO as scheduled Leonie Waldron APRN.CNM documented in this encounterPark[facility] Telephone encounter Note * Telephone Encounter - Faina Levin MA - 09/24/2024 8:44 AM EDT OneTouch test strips were sent to [facility], patient requesting [facility]. Sent patient mychart message to contact [facility] to fill at that location. [facility]04-18-2025 Miscellaneous Notes* Telephone Encounter - Faina Levin MA - 09/24/2024 8:44 AM EDT OneTouch test strips were sent to [facility], patient requesting [facility]. Sent patient mychart message to contact [facility] [place] to fill at that location. documented in this encounterPark[facility]04-[facility]25 Instructions* Patient Instructions* Thor Vinson MA - 09/24/2024 8:41 AM EDT SEQUENTIAL SCREENINGS The [facility] offers sequential screenings for women who are interested in screenings for chromosomal abnormalities and certain defects during a . The sequential screen combinesultrasound and blood tests to determine the risk of chromosomal abnormalities, including Down's Syndrome (Trisomy 21) and Trisomy 18, as well as open neural tube defects including spina bifida. Ultrasound examination is performed between 11 weeks and 13 weeks gestational age. Blood tests are drawn after the ultrasound and again later in the between 15 and 21 weeks gestational age. Please let your physician know if you are interested in this testing. It will require an appointment withour firestopper technician. This is not an ultrasound performed by a physician in our office during a routine visit. SIGNS AND SYMPTOMS OF LABOR 1. Contractions every 10 minutes or more often 2. Clear, pink, or brownish fluid (water) leaking from vagina 3. Feeling that baby is pushing down, pressure 4. Low, dull backache 5. Cramps that feel like a period 6. Cramps with or without diarrhea If you notice any of the above symptoms, contact our office at [phone] and ask to speak with anurse. After hours, you can call doctors registry at [phone] OR call [facility] at [phone] ask to have the doctor marketing professional paged. If you consider this an emergency, dial 8-2-9 or go to your nearest emergency department. NEED HELP? Are you dealing with a violent or abusive relationship? Are you a victim of rape or sexual assult? Call [facility] ([place]) 24 hour Crisis Hotline: 613.817.6608 or 279-537-4245. MANUAL Your Guide to a Healthy manual is now on-line. Visit [email or web address] to download your free copy documented in this encounterPark[facility]04-[facility]-20[facility]04-18-[facility] History of Present illness Narrative* Mary Blackwell PA - 09/24/2024 8:18 AM EDT 29-year-old female 27 weeks presents for urinary symptoms. Advised patient that we are unable to see patients over 20 weeks with any vaginal or urinary complaints as it may be a more extensive issue. She needs to see her OB today. We will attempt to schedule her an appointment. Ifunable to schedule follow-up today, advised patient she needs to call OB triage and proceed based on their advice. She has no vaginal leaking, bleeding, contractions. documented in this encounterPark[facility]04-14-2025 Instructions* Patient Instructions* Kelsy Guillermo DO - 09/20/2024 1:47 PM EDT 1) check your sugars fasting (60-90 mg/dL) and 2 hours post meal (less than 120 mg/dL) 2) forward me your blood glucose data weekly ([email or web address]) as you are doing- 3) continue current regimen as you are doing: NPH 90 units at bedtime. Humalog 23 units prior to breakfast, 23 units prior to lunch, Humalog 26 units prior to dinner. Take an + additional 5 units with Higher carb meals (camilo with * if/when you take the extra insulin so I can see if it is working or not). take 1/2 of the Humalog if you don't feel like you're going to eat enough or eat a lower carb meal.Camilo with 0 if you take less insulin. 4) see me in 6 weeks for f/u (prefers in person). documented in this encounterPark[facility]04-[facility]25 History of Present illness Narrative* Kelsy Guillermo DO - 09/20/2024 1:40 PM EDT Reason for consultation: f/u - type 2 diabetes antepartum- controlled Referring Physician:Dr Piper Julian MD My final recommendations will be communicated back to the requesting physician by way of shared Medical record or letter via US mail. HISTORY OF PRESENT ILLNESS; Ms. Byrne is a 29 year old F presenting at 27 weeks gestation for f/u regarding type 2 diabetes antepartum. Her initial visit with me was 05/03. Pt has 7 year old daughter- had DM during thatpregnancy- had macrosomia, delivered in [place]. She was initially diagnosed with type 2 diabetes at age 14. States she has been following with ophthalmology, ? New dx of retinopathy- she follows up with them on august 17. Does have peripheral neuropathy- states both parents have this as well. Shehas strong family hx of DM including mother, father, grandparents. She started taking insulin in 2022- however states she has bipolar disorder and discontinues medications during these episodes. Was on the following regimen at her first visit: Lantus 10 units at bedtime Humalog 4 units prior to meals Was switched to NPH + Humalog at her initial visit. She has been forwarding me her BG data weekly- most recently on 09/11- her current regimen is as follows: NPH 90 units at bedtime. Humalog 23 units prior to breakfast, 23 units prior to lunch, Humalog 26 units prior to dinner. Take an + additional 5 units with Higher carb meals (camilo with * if/when you take the extra insulin so I can see if it is working or not). take 1/2 of the Humalog if you don't feel like you're going to eat enough or eat a lower carb meal.Camilo with 0 if you take less insulin. Fasting- 80-90 mg/dL. 2 hour post meal- 76-122 mg/dL Was using CGM but was having issues with signal loss- so now she is using glucometer and checking 4x per day. POC HbA1c today is 5.2%. Her prepregnancy weight was 191 lbs and her current weight is 191 lbs. Hypoglycemia frequency: infrequent but present at times. Hypoglycemia awareness: Yes Hyperglycemia Symptoms: denies blurry vision reports polyuria denies polydipsia reports nocturia denies rapid weight loss Last visit with OB was 09/07. Last u/s was 09/02- EFW 11th centile, AC 19th, VI NL- having a girl! Went for echo but didn't get good views and is going to follow up with them. F/u later this month with OB and growth scan. No complaints/concerns at this time- doing ok overall. PAST MEDICAL HISTORY Diagnosis Date Asthma ([facility]) Bipolar H/O macrosomia in in prior , currently ([facility]) 05/07/2024 Herpes simplex type 2 (HSV-2) infection affecting , antepartum, unspecified trimester ([facility]) 04/19/2024 Hyperlipidemia LGA (large for gestational age) infant ([facility]) 12/23/2016 12/23/16 - >95% Polyhydramnios ([facility]) 01/01/2017 Pre-existing type 2 diabetes mellitus in in first trimester ([facility]) 06/15/2024 First trimester Hgb A1c 10.5%, now follows with Dr. Guillermo Recurrent UTI Type 2 diabetes mellitus ([facility]) PAST SURGICAL HISTORY Procedure Laterality Date CHOLECYSTECTOMY D&C, DIAG AND/OR THERAPEUTIC 2017 FAMILY HISTORY Problem Relation Age of Onset Hyperlipidemia Mother Diabetes Mother Hypertension Mother other (neuropathy) Mother Diabetes Father Heart Father Hypertension Father Hyperlipidemia Father Thyroid Sister Multiple Sclerosis Sister Depression Sister Anxiety disorder Sister other (carpal tunnel) Sister Hyperlipidemia Brother No Known Problems Brother Heart Maternal Grandmother Diabetes Maternal Grandfather Obesity Maternal Grandfather Diabetes Paternal Grandmother Heart Attack Paternal Grandmother Cancer Paternal Grandfather Social History Tobacco Use Smoking status: Every Day Current packs/day: 0.50 Average packs/day: 0.5 packs/day for 14.0 years (7.0 ttl pk-yrs) Types: Cigarettes Smokeless tobacco: Never Vaping Use Vaping status: Never Used Substance Use Topics Alcohol use: No Drug use: No Current Outpatient Medications Medication Sig Dispense Refill aspirin, enteric coated (ASPIRIN, ENTERIC COATED) 81 mg EC tablet TAKE 2 TABLETS BY MOUTH EVERY DAYAT BEDTIME 180 tablet 1 insulin NPH (HUMULIN N NPH INSULIN KWIKPEN) 100 unit/mL (3 mL) injection pen 90 units at bedtime 45mL 11 lancets (BIO WellnessTOUCH DELICA PLUS LANCET) 30 gauge Use with blood glucose test four times a day. Insulin Dep? Yes 100 Each 11 insulin lispro (HUMALOG KWIKPEN INSULIN) 100 unit/mL 23 -23 - 26 units prior to each meal respectively + scale (upto 100 units/day) 45 mL 11 blood sugar diagnostic (ONETOUCH VERIO TEST STRIPS) test strip Use as instructed - TEST BLOOD SUGARS 4 TIMES DAILY 150 Each 11 Blood-Glucose Meter (BIO WellnessTOUCH VERIO FLEX METER) Use to check blood glucose 4 times daily. 1 Each 0 keTORolac Tromethamine (ACLUAR LS) 0.4 % drop prednisoLONE acetate (PRED FORTE) 1 % ophthalmic suspension pimecrolimus (ELIDEL) 1 % cream PLEASE SEE ATTACHED FOR DETAILED DIRECTIONS Blood-Glucose Meter (ACCU-CHEK GUIDE ME GLUCOSE MTR) USE INSTRUCTED. 1 Each 1 blood sugar diagnostic (BLOOD GLUCOSE TEST) test strip Use with blood glucose test four times a day. 150 Strip 11 Lancets Use with blood glucose test four times a day. 150 Each 11 busPIRone (BUSPAR) 15 mg tablet clobetasol (TEMOVATE) 0.05 % cream PLEASE SEE ATTACHED FOR DETAILED DIRECTIONS albuterol HFA (PROVENTIL HFA, VENTOLIN HFA) 90 mcg/actuation inhaler Inhale 2 Puffs as instructed every 6 hours as needed. VIT 10-IRON FUM-FOLIC ORAL Take by mouth. Insulin Friendship, Disposable, (BD ULTRAFINE III MINI PEN) 31 gauge x 3/16 4 times/day 150 Each 5 FLUoxetine (PROZAC) 40 mg capsule Take 40 mg by mouth. albuterol HFA (PROVENTIL HFA, VENTOLIN HFA) 90 mcg/actuation inhaler Inhale 2 Puffs as instructed. No current facility-administered medications for this visit. Allergies As of Date: 09/20/2024 Allergen Noted Reaction ALUMINUM-MAGNESIUM HYDROXIDE 02/05/2018 GI Upset ARIPIPRAZOLE 12/13/2022 Mental Status Change QUETIAPINE 10/04/2018 Other: See Comments and Shortness of Breath METOCLOPRAMIDE 02/10/2019 Vomiting, Hives, and Unknown PROMETHAZINE 07/11/2023 GI Upset ZOFRAN [ONDANSETRON] 07/11/2023 Vomiting ZOLOFT [SERTRALINE] 07/11/2023 Mental Status Change Fully Assessed 09/07/2024 REVIEW OF SYSTEMS: General: no fever and no chills- she lost weight initially, but now has gained and is back to prepregnancy weight. Skin: no rashes, pruritis or dry skin Eyes: no blurred or double vision or eye pain Cardiac: denies chest pain, heart palpitations or orthopnea Pulmonary: denies wheezing, productive cough or exertional dyspnea GI: nausea and vomiting Musc: denies history of upper or lower extremity weakness Reproductive: gravid at 27+ weeks gestation, menses regular prior to the . Endocrine: complains of polyuria and nocturia Hematology: Negative for anemia, easy bleeding and bruising. PHYSICAL EXAM: BP 116/71 Pulse 104 Wt 86.9 kg (191 lb 9.3 oz) LMP 03/13/2024 (Exact Date) BMI 34.59 kg/m GENERAL: Alert, no distress, cooperative SKIN: Skin color, texture, turgor normal. No rashes or lesions. HEAD/SINUSES: No significant findings EYES: sclera non-icteric, EOMs intact. ABDOMEN: gravid at 27+ weeks EXTREMITIES: Normal exam of the extremities NEURO: AAO x 3, no focal deficits. The remainder of the physical exam is noncontributory. DATA: Hemoglobin A1C (%) Date Value 12/16/2016 6.6 Hemoglobin A1C (POCT) (%) Date Value 06/07/2024 7.9 POC HbA1c 06/07/24 improved to 7.9%. POC HbA1c today is 5.2% IMPRESSION: Ms. Kaur is a 29 year old female at 27+ weeks gestation here regarding type 2 diabetes antepartum. RECOMMENDATIONS: 1. The patient was counseled regarding the maternal and risks of hyperglycemia during . risks include, but are not limited to: congenital abnormalities, hypoxia and stillbirth, macrosomia, shoulder dystocia and hypoglycemia. Maternal risks include increased risks of pre-eclampsia and delivery. I discussed in detail with her that her risk of significant adverse outcome is high- 15-20% given her HbA1c over 10% at conception- however she has done much better during the - most recent HbA1c is 7.9%. Will reassess at f/u. 2. I recommend the patient check her blood glucose fasting and 2 hour after each meal, we have provided her with a glucometer if she does not have one. The following blood glucose targets were discussed: fasting blood glucose concentration between 60-90 mg/dL, and 2 hour postprandial blood glucose c oncentration of less than 120 mg/dL. She was encouraged to limit carbohydrate intake, to walk aftermeals, (if not contraindicated) and will be scheduled with our dietitian, (if not done already). Regarding her blood glucose management, I recommend she do the followin) check your sugars fasting (60-90 mg/dL) and 2 hours post meal (less than 120 mg/dL) 2) forward me your blood glucose data weekly ( ) as you are doing- 3) continue current regimen as you are doing: NPH 90 units at bedtime. Humalog 23 units prior to breakfast, 23 units prior to lunch, Humalog 26 units prior to dinner. Take an + additional 5 units with Higher carb meals (camilo with * if/when you take the extra insulin so I can see if it is working or not). take 1/2 of the Humalog if you don't feel like you're going to eat enough or eat a lower carb meal.Camilo with 0 if you take less insulin. 4) see me in 6 weeks for f/u (prefers in person). 3. ophthalmology- she is following with ophthalmology- ? New DX of DR. Savage is following up 10/18/24. I spent a total of 30 minutes on the date of the service which included preparing to see the patient, [id number] patient care, completing clinical documentation, obtaining and/or reviewing separately obtained history, performing a medically appropriate examination, counseling and educating the pat ient/family/caregiver, and ordering medications, tests, or procedures. Kelsy Guillermo DO documented in this encounterPark[facility]04-14-2025 [facility]25 Telephone encounter Note* Telephone Encounter - Kelsy Guillermo DO - 09/11/2024 7:39 AM EDT Reviewed BG data- responded as follows: Good morning- I reviewed your BG data- overall these numbers remain at goal for - continue your current regimen: NPH 90 units at bedtime. Humalog 23 units prior to breakfast, 23 units prior to lunch, Humalog 26 units prior to dinner. Take an + additional 5 units with Higher carb meals (camilo with * if/when you take the extra insulin so I can see if it is working or not). take 1/2 of the Humalog if you don't feel like you're going to eat enough or eat a lower carb meal.Camilo with 0 if you take less insulin. Will review again next week- thanks! Dr Guillermo [facility]04-05-2025 Miscellaneous Notes* Telephone Encounter - Kelsy Guillermo DO - 09/11/2024 7:39 AM EDT Reviewed BG data- responded as follows: Good morning- I reviewed your BG data- overall these numbers remain at goal for - continue your current regimen: NPH 90 units at bedtime. Humalog 23 units prior to breakfast, 23 units prior to lunch, Humalog 26 units prior to dinner. Take an + additional 5 units with Higher carb meals (camilo with * if/when you take the extra insulin so I can see if it is working or not). take 1/2 of the Humalog if you don't feel like you're going to eat enough or eat a lower carb meal.Camilo with 0 if you take less insulin. Will review again next week- thanks! Dr Guillermo documented in this encounterPark[facility]04-01-2025 Telephone encounter Note * Telephone Encounter - Kelsy Guillermo DO - 09/07/2024 2:11 PM EDT Reviewed BG data- responded as follows: Hector Farleyi- I reviewed your BG data- your more recent numbers are at/near goal lets continue your current regimen this week: continue NPH 90 units at bedtime. continue Humalog 23 units prior to breakfast, 23 units prior to lunch, Humalog to 26 units prior todinner. Take an + additional 5 units with Higher carb meals (camilo with * if/when you take the extra insulin so I can see if it is working or not). take 1/2 of the Humalog if you don't feel like you're going to eat enough or eat a lower carb meal.Camilo with 0 if you take less insulin. Will review again next week- thanks KB [facility]04-01-2025 Miscellaneous Notes* Telephone Encounter - Kelsy Guillermo DO - 09/07/2024 2:11 PM EDT Reviewed BG data- responded as follows: Hector Hoda- I reviewed your BG data- your more recent numbers are at/near goal lets continue your current regimen this week: continue NPH 90 units at bedtime. continue Humalog 23 units prior to breakfast, 23 units prior to lunch, Humalog to 26 units prior todinner. Take an + additional 5 units with Higher carb meals (camilo with * if/when you take the extra insulin so I can see if it is working or not). take 1/2 of the Humalog if you don't feel like you're going to eat enough or eat a lower carb meal.Camilo with 0 if you take less insulin. Will review again next week- thanks NILES documented in this encounterParkview Health [facility]04-01-2025 Telephone encounter Note * Telephone Encounter - Amelia Rose RN - 09/07/2024 12:46 PM EDT Spoke to patient and advised as below. Patient verbalized understanding. [facility]04-01-2025 Miscellaneous Notes* Telephone Encounter - Amelia Rose RN - 09/07/2024 12:46 PM EDT Spoke to patient and advised as below. Patient verbalized understanding. * Telephone Encounter - Kelsy Guillermo DO - 09/07/2024 12:39 PM EDT Please advise her that she does not need to do glucose tolerance testing- she is already checking BG/taking insulin- so this test will not change her management NILES * Telephone Encounter - Kim Gross - 09/07/2024 12:09 PM EDT Hoda is calling Kelsy Guillermo DO today States her OB office ordered her a glucose test but she is asking Dr Guillermo if that is something sheshould have done Please advise Patient has been identified by name and birthdate. Duration of symptoms: N/A Person calling: self Call patient at: at home [phone] (home) [phone] (cell) Was an appointment scheduled: No Closing statement: Results or non-symptom based questions: Thank you for calling [facility], your call will be returned within the next business day. Kim East documented in this encounterParkview [facility]04-01-2025 Telephone encounter Note * Telephone Encounter - Kelsy Guillermo DO - 09/07/2024 12:39 PM EDT Please advise her that she does not need to do glucose tolerance testing- she is already checking BG/taking insulin- so this test will not change her management KB [facility]04-01-2025 Telephone encounter Note* Telephone Encounter - Kim Gross - 09/07/2024 12:09 PM EDT Hoda is calling Kelsy Guillermo DO today States her OB office ordered her a glucose test but she is asking Dr Guillermo if that is something sheshould have done Please advise Patient has been identified by name and birthdate. Duration of symptoms: N/A Person calling: self Call patient at: at home [phone] (home) [phone] (cell) Was an appointment scheduled: No Closing statement: Results or non-symptom based questions: Thank you for calling [facility], your call will be returned within the next business day. Kim East [facility]04-01-2025 Progress note* Quick Notes - Ronaldo Rubio MD - 09/07/2024 11:15 AM EDT Patient at 25w 3 days, Type II Diabetic followed by endocrine. Reports FBSs ~ 90-95, and 2hrs Endocrine appointment 09/14. Denies ctrx, bleeding, lof labs today echo 5/ rto 2 weeks Ronaldo Rubio MD [facility] Work Phone: 1(821) 347-638104-01-2025 Miscellaneous Notes* Quick Notes - Ronaldo Rubio MD - 09/07/2024 11:15 AM EDT Patient at 25w 3 days, Type II Diabetic followed by endocrine. Reports FBSs ~ 90-95, and 2hrs </= 120 (no book with her) Endocrine appointment 09/14. Denies ctrx, bleeding, lof labs today echo 10/12 rto 2 weeks Ronaldo Rubio MD documented in this encounterParkview [facility]04-01-2025 Instructions* Patient Instructions* Sundeep Salvador MA - 09/07/2024 10:40 AM EDT SEQUENTIAL SCREENINGS The [facility] offers sequential screenings for women who are interested in screenings for chromosomal abnormalities and certain defects during a . The sequential screen combinesultrasound and blood tests to determine the risk of chromosomal abnormalities, including Down's Syndrome (Trisomy 21) and Trisomy 18, as well as open neural tube defects including spina bifida. Ultrasound examination is performed between 11 weeks and 13 weeks gestational age. Blood tests are drawn after the ultrasound and again later in the between 15 and 21 weeks gestational age. Please let your physician know if you are interested in this testing. It will require an appointment withour firestopper technician. This is not an ultrasound performed by a physician in our office during a routine visit. SIGNS AND SYMPTOMS OF LABOR 1. Contractions every 10 minutes or more often 2. Clear, pink, or brownish fluid (water) leaking from vagina 3. Feeling that baby is pushing down, pressure 4. Low, dull backache 5. Cramps that feel like a period 6. Cramps with or without diarrhea If you notice any of the above symptoms, contact our office at [phone] and ask to speak with anurse. After hours, you can call doctors registry at [phone] OR call [facility] at [phone] ask to have the doctor marketing professional paged. If you consider this an emergency, dial [phone]- or go to your nearest emergency department. NEED HELP? Are you dealing with a violent or abusive relationship? Are you a victim of rape or sexual assult? Call [facility] ([place]) 24 hour Crisis Hotline: 227.411.3029 or 660-356-9941. MANUAL Your Guide to a Healthy manual is now on-line. Visit [email or web address] to download your free copy documented in this encounterParkview Health [facility] Hospital03-31-2025 History of Present illness Narrative* Jamari Byrne MD - 09/06/2024 10:00 AM EDT Subjective Patient ID: Hoda Byrne is a 29 y.o. female who presents for Diabetes (Lab Results/ Component Value Date / HGBA1C 7.9 (A) 06/07/2024 ). HPI due date December 18, 2024 DM II 80 to 120 Low bs reaction Endocrninologist Dr Guillermo Will see in September and then will refer to Dr Groves after Maternal med in [facility] every 4 week Quit smoking but down to 2 cig per day Stress living arrangements Will try to breast feeding Receives [facility] Bipolar depression Rx Dr Jackson 1 month ago On buspar and fluoxetine No working Smoker patches Review of Systems Objective BP 120/68 Pulse 98 Wt 85.8 kg (189 lb 3.2 oz) LMP 03/13/2024 (Exact Date) SpO2 98% BMI 34.61 kg/m Physical Exam Vitals reviewed. Constitutional: Appearance: Normal appearance. HENT: Head: Normocephalic and atraumatic. Eyes: Conjunctiva/sclera: Conjunctivae normal. Cardiovascular: Rate and Rhythm: Normal rate and regular rhythm. Pulmonary: Effort: Pulmonary effort is normal. Breath sounds: Normal breath sounds. Musculoskeletal: Cervical back: Neck supple. Skin: General: Skin is warm and dry. Neurological: General: No focal deficit present. Mental Status: She is alert and oriented to person, place, and time. Psychiatric: Mood and Affect: Mood normal. Behavior: Behavior normal. Thought Content: Thought content normal. Judgment: Judgment normal. Assessment/Plan Diagnoses and all orders for this visit: Exercise-induced asthma ([facility]) - albuterol 90 mcg/actuation inhaler; INHALE 1 TO 2 PUFFS EVERY 6 HOURS NEEDED Bipolar depression (Multi) Stable Talked about continuing to work on smoking cessation she may continue to breast- feed or at least attempt it. She was asking whether or not nicotine gum could be substituted for cigarettes. Would recommend the 2 mg versus 4 mg Nicorette gum then only 1 or 2 a day if she stop smoking documented in this encounterOhio [facility] Work Phone: 1(568) 753-908803-31-2025 Telephone encounter Note* Telephone Encounter - Idania Murphy RN - 09/06/2024 9:48 AM EDT Request received from pharmacy for 90 day supply of aspirin Rx. Patient 25w2d, last seen in office on 08/10/24. Idania Murphy RN [facility]03-31-2025 Miscellaneous Notes* Telephone Encounter - Idania Murphy RN - 09/06/2024 9:48 AM EDT Request received from pharmacy for 90 day supply of aspirin Rx. Patient 25w2d, last seen in office on 08/10/24. Idania Murphy RN documented in this encounterParkview Health [facility]03-28-2025 Note Indication Follow-up evaluation to complete anatomic survey Diabetes mellitus, Maternal obesity, BMI >30, History of preeclampsia Impression REMOTE READ The patient is referred for completion of the anatomic survey. - Single, live, intrauterine . - No malformations were visualized on a follow-up anatomic survey. - Anatomic survey was completed today. - The EFW is 632 g, at the 11%. AC is at the 19%. - The amniotic fluid volume is normal amount. - The placenta is anterior, fundal. - Not all structural malformations can be detected by ultrasound examination. Recommendations Additional follow-up as clinically indicated. Maternal Assessment Height 157 cm Height (ft) 5 ft Height (in) 2 in Physical Exam Initial weight (lb) 171 lb Initial BMI 31.28 kg/m Maternal assessment other: 3 Para 1 Method Transabdominal ultrasound examination. View: Suboptimal view: limited by position [place] . Number of fetuses: 1 Dating LMP on: 03/13/2024 GA by LMP 24 w + 5 d ADA by LMP: 12/18/2024 GA by prior assessment 24 w + 5 d ADA by prior assessment: 12/18/2024 Ultrasound examination on: 09/02/2024 GA by U/S based upon: AC, BPD, Femur, HC GA by U/S 23 w + 5 d ADA by U/S: 12/25/2024 Assigned: based on stated ADA, selected on 09/02/2024 Assigned GA 24 w + 5 d Assigned ADA: 12/18/2024 General Evaluation Cardiac activity present. FHR 155 bpm. movements: present. Presentation: cephalic Placenta: Placental site: anterior, fundal Umbilical cord: Cord vessels: 3 vessel cord Amniotic fluid: Amount of AF: normal amount. MVP 3.1 cm. VI 9.7 cm. Q1 2.9 cm, Q2 3.1 cm, Q3 2.6 cm, Q4 1.1 cm Growth Overview Exam date GA BPD (mm) HC (mm) AC (mm) FL (mm) HL (mm) EFW (g) 07/13/2024 17w 3d 34.2 14% 133.5 25% 116.9 49% 23.1 39% 181 25% 08/10/2024 21w 3d 46.5 6% 184.8 32% 156.5 24% 32.6 21% 32.6 30% 361 11% 09/02/2024 24w 5d 55.6 3% 218.3 24% 192.4 19% 41.8 27% 632 11% Biometry Standard BPD 55.6 mm 23w 0d 3% Hadlock OFD 79.9 mm 24w 2d 47% Nicolaides HC 218.3 mm 23w 5d 24% Anna Cerebellum tr 24.3 mm 22w 2d 6% Hill Nuchal fold 3.5 mm AC 192.4 mm 24w 0d 19% Hadlock Femur 41.8 mm 23w 6d 27% Anna EFW 632 g 23w 4d 11% Hadlock EFW (lb) 1 lb EFW (oz) 6 oz EFW by: Hadlock (HC-AC-FL) Extended Waistband Setter Lockstitch 6.2 mm CM 8.6 mm 97% Nicolaides Extremities / Bony Struc FL / HC 0.19 Other Structures FHR 155 bpm Anatomy Lateral ventricles: normal Cavum septi pellucidi: normal Cerebellum: normal Cisterna magna: normal 4-chamber view: normal RVOT view: normal LVOT view: normal 3-vessel view: normal Heart / Thorax Situs: situs solitus (normal) Aortic arch view: normal Diaphragm: normal Stomach: normal Kidneys: normal Bladder: normal sex: female Wants to know sex: yes Performed By: Idania Snyder RDMS, RVT Read By: Mario Martin M.D.MATERNAL [id number] Telephone encounter Note* Telephone Encounter - Kelsy Guillermo DO - 08/30/2024 8:42 AM EDT Reviewed BG data- responded as follows: Hector Hoda- I reviewed your BG data- Lets increase NPH to 90 units at bedtime. Continue Humalog 23 units prior to breakfast, 23 units prior to lunch, Humalog to 26 units prior to dinner. Take an + additional 5 units with Higher carb meals (camilo with * if/when you take the extra insulin so I can see if it is working or not). take 1/2 of the Humalog if you don't feel like you're going to eat enough or eat a lower carb meal.Camilo with 0 if you take less insulin. Will review again next week- thanks! KB [facility]03-24-2025 Miscellaneous Notes* Telephone Encounter - Kelsy Guillermo DO - 08/30/2024 8:42 AM EDT Reviewed BG data- responded as follows: Hector Hoda- I reviewed your BG data- Lets increase NPH to 90 units at bedtime. Continue Humalog 23 units prior to breakfast, 23 units prior to lunch, Humalog to 26 units prior to dinner. Take an + additional 5 units with Higher carb meals (camilo with * if/when you take the extra insulin so I can see if it is working or not). take 1/2 of the Humalog if you don't feel like you're going to eat enough or eat a lower carb meal.Camilo with 0 if you take less insulin. Will review again next week- thanks! KB documented in this encounterParkview Health [facility] Hospital03-19-2025 Telephone encounter Note * Telephone Encounter - Charlette Starkey RN - 08/25/2024 9:52 AM EDT Patient notified. She wanted to move u/s up sooner. Scheduled for 09/02. Patient also preferred to keep / OB appointment as scheduled with RR. Charlette Starkey RN [facility]03-19-2025 Miscellaneous Notes* Telephone Encounter - Charlette Starkey RN - 08/25/2024 9:52 AM EDT Patient notified. She wanted to move u/s up sooner. Scheduled for 09/02. Patient also preferred to keep / OB appointment as scheduled with RR. Charlette Starkey RN * Telephone Encounter - Piper Julian MD - 08/25/2024 9:08 AM EDT Official readings have been normal as have growth. Keep next growth US, can be 3 weeks instead of 4but we don't need to do anything different at this time, conbt. q 4 week growth scans. RLR * Telephone Encounter - Idania Murphy RN - 08/25/2024 9:04 AM EDT Patient called back this morning, can you address phone noted below? Idania Murphy RN * Telephone Encounter - Charlette Starkey RN - 08/24/2024 4:30 PM EDT 23w3d Patient had echo done today and pediatric cardiology provider noted the amniotic fluid volumeappeared subjectively low. Patient is questioning if she needs sooner appointment than her 09/07/24 f/u anatomy one that is scheduled. Charlette Starkey RN documented in this encounterParkview Health [facility]03-19-2025 Telephone encounter Note * Telephone Encounter - Piper Julian MD - 08/25/2024 9:08 AM EDT Official readings have been normal as have growth. Keep next growth US, can be 3 weeks instead of 4but we don't need to do anything different at this time, conbt. q 4 week growth scans. RLR [facility] Work Phone: [phone] Telephone encounter Note* Telephone Encounter - Idania Murphy RN - 08/25/2024 9:04 AM EDT Patient called back this morning, can you address phone noted below? Idania Murphy RN [facility]03-18-2025 Telephone encounter Note* Telephone Encounter - Charlette Starkey RN - 08/24/2024 4:30 PM EDT 23w3d Patient had echo done today and pediatric cardiology provider noted the amniotic fluid volumeappeared subjectively low. Patient is questioning if she needs sooner appointment than her 09/07/24 f/u anatomy one that is scheduled. Charlette Starkey RN [facility]03-18-2025 NoteHNO ID: [id number] Author: PAMELA HASKINS MD Service: ? Author Type: Physician Type: Progress Notes Filed: 08/24/2024 14:20 Note Text: Dr. Pooja Julian NAME: Melissa Byrne CLINIC Number.: [id number] Date of : 1995 Date of Visit: August 24, 2024 Dear Jamari Byrne MD: Ms. Melissa Byrne was seen for echocardiogram and pediatric cardiology consultation on August 24, 2024. She is a 29 year old woman, referred due to preexisting type 2 DM, on insulin. She also has a history of bipolar, asthma, dyslipidemia, obesity, recurrent UTI, HSV-2. Anatomy ultrasound was suboptimal due to acoustic windows and she has a follow up scheduled. There is no family history of congenital heart disease. echocardiogram on August 24, 2024 at 23 weeks 3 days gestation shows atrial situs solitus with levocardia. SVC and IVC return normally to the right atrium. One right and one left pulmonary vein were seen returning normally into the left atrium. The atria were normal in size and there was normal right to left shunting at the atrial level. The left and right ventricles were normal in size and shortening. No ventricular hypertrophy. The ventricular septum appeared intact. Normal mitral and tricuspid valves without significant regurgitation. The left and right ventricular outflow tracts were widely patent. The ductal arch was widely patent. Aortic arch, specifically transverse aortic arch, suboptimally visualized due to acoustic windows. heart rate and rhythm were regular and no pericardial effusion was seen. Normal Doppler of umbilical artery, umbilical vein, ductus venosus. In summary, the echocardiogram today was technically challenging due to acoustics but showed normal intracardiac anatomy with normal ventricular function and normal heart rate and rhythm. Aortic arch, specifically transverse aortic arch, suboptimally visualized due to acoustic windows. We discussed these findings with Ms. Melissa Byrne and the FOB's mother. We discussed the implications of diabetes in . In addition, the limitations of the echocardiogram and echocardiography in general, including the inability to exclude ASDs, some VSDs, minor valvar abnormalities, partial anomalous pulmonary venous return, persistent patent ductus arteriosus, and coarctation of the aorta, were explained. Recommend repeat evaluation between 28-32 weeks to recheck the aortic arch, anatomy, and ventricular hypertrophy. Also of note, the amniotic fluid volume appeared subjectively low. Thank you for allowing me to participate in the care of your patient and please do not hesitate to contact me if I can be any further assistance. During this patient visit I have reviewed prior notes and imaging including from referring maternal medicine specialists, devoted time to counseling/coordination of care regarding results of the echocardiogram, clincal manifestations of the identified disease, prognosis, test results and treatment options, formulated and provided my recommendations to other caregivers by verbal and written communication as appropriate and assisted in coordination of care as needed. I spent a total of 60 minutes on the date of the service which included preparing to see the patient, [id number] patient care, completing clinical documentation, obtaining and/or reviewing separately obtained history, performing a medically appropriate examination, counseling and educating the patient/family/caregiver, ordering medications, tests, or procedures, communicating with other HCPs (not separately reported), independently interpreting results (not separately reported), and communicating results to the patient/family/caregiver. I also performed portions of the echocardiogram myself. Sincerely, Dr. Pamela CabreraNorthern [facility]03-18-2025 History of Present illness Narrative* Pamela Haskins MD - 08/24/2024 12:[address] Pooja Julian NAME: Melissa Byrne CLINIC Number.: [id number] Date of : 1995 Date of Visit: August 24, 2024 Dear Jamari Byrne MD: Ms. Melissa Byrne was seen for echocardiogram and pediatric cardiology consultation on August 24, 2024. She is a 29 year old woman, referred due to preexisting type 2 DM, on insulin. She also has a history of bipolar, asthma, dyslipidemia, obesity, recurrent UTI, HSV-2. Anatomy ultrasound was suboptimal due to acoustic windows and she has a follow up scheduled. There is no family history of congenital heart disease. echocardiogram on August 24, 2024 at 23 weeks 3 days gestation shows atrial situs solitus withlevocardia. SVC and IVC return normally to the right atrium. One right and one left pulmonary vein were seen returning normally into the left atrium. The atria were normal in size and there was normal right to left shunting at the atrial level. The left and right ventricles were normal in size and shortening. No ventricular hypertrophy. The ventricular septum appeared intact. Normal mitral and tricuspid valves without significant regurgitation. The left and right ventricular outflow tracts werewidely patent. The ductal arch was widely patent. Aortic arch, specifically transverse aortic arch, suboptimally visualized due to acoustic windows. heart rate and rhythm were regular and no pericardial effusion was seen. Normal Doppler of umbilical artery, umbilical vein, ductus venosus. In summary, the echocardiogram today was technically challenging due to acoustics but showed normal intracardiac anatomy with normal ventricular function and normal heart rate and rhythm. Aortic arch, specifically transverse aortic arch, suboptimally visualized due to acoustic windows. We discussed these findings with Ms. Melissa Byrne and the FOB's mother. We discussed the implications of diabetes in . In addition, the limitations of the echocardiogram and echocardiography in general, including the inability to exclude ASDs, some VSDs, minor valvar abnormalities, partial anomalous pulmonary venous return, persistent patent ductus arteriosus, and coarctation of the aorta, were explained. Recommend repeat evaluation between 28-32 weeks to recheck the aortic arch, anatomy, and ventricular hypertrophy. Also of note, the amniotic fluid volume appeared subjectively low. Thank you for allowing me to participate in the care of your patient and please do not hesitate to contact me if I can be any further assistance. During this patient visit I have reviewed prior notes and imaging including from referring maternalfetal medicine specialists, devoted time to counseling/coordination of care regarding results of the echocardiogram, clincal manifestations of the identified disease, prognosis, test results and treatment options, formulated and provided my recommendations to other caregivers by verbal and written communication as appropriate and assisted in coordination of care as needed. I spent a total of 60 minutes on the date of the service which included preparing to see the patient, [id number] patient care, completing clinical documentation, obtaining and/or reviewing separately obtained history, performing a medically appropriate examination, counseling and educating the pat ient/family/caregiver, ordering medications, tests, or procedures, communicating with other HCPs (not separately reported), independently interpreting results (not separately reported), and communicating results to the patient/family/caregiver. I also performed portions of the echocardiogram myself. Sincerely, Dr. Pamela Haskins documented in this encounterPark[facility]03-[facility] Telephone encounter Note * Telephone Encounter - Kelsy Guillermo, - 08/20/2024 3:15 PM EDT Reviewed BG data- responded as follows: Hi Hoda- I reviewed your BG data- overall these numbers look good- fasting borderline. Lets increase NPH to 85 units at bedtime. Continue Humalog 23 units prior to breakfast, 23 units prior to lunch,Humalog to 26 units prior to dinner. Take an + additional 5 units with Higher carb meals (camilo with * if/when you take the extra insulin so I can see if it is working or not). take 1/2 of the Humalog if you don't feel like you're going to eat enough or eat a lower carb meal.Camilo with 0 if you take less insulin. Will review again next week- thanks! KB [facility]03-14-2025 Miscellaneous Notes* Telephone Encounter - Kelsy Guillermo DO - 08/20/2024 3:15 PM EDT Reviewed BG data- responded as follows: Hi Hoda- I reviewed your BG data- overall these numbers look good- fasting borderline. Lets increase NPH to 85 units at bedtime. Continue Humalog 23 units prior to breakfast, 23 units prior to lunch,Humalog to 26 units prior to dinner. Take an + additional 5 units with Higher carb meals (camilo with * if/when you take the extra insulin so I can see if it is working or not). take 1/2 of the Humalog if you don't feel like you're going to eat enough or eat a lower carb meal.Camilo with 0 if you take less insulin. Will review again next week- thanks! KB documented in this encounterParkview Health [facility]03-12-2025 Telephone encounter Note * Telephone Encounter - Amelia Rose RN - 08/18/2024 10:50 AM EDT Spoke to [facility] pharmacy in [place]. They will transfer the prescription over. [facility]03-12-2025 Miscellaneous Notes* Telephone Encounter - Amelia Rose RN - 08/18/2024 10:50 AM EDT Spoke to [facility] pharmacy in [place]. They will transfer the prescription over. * Telephone Encounter - Krys Arellano - 08/18/2024 9:20 AM EDT Hoda is calling Kelsy Guillermo DO today to request that insulin lispro (HUMALOG KWIKPEN INSULIN) 100 unit/mL be transferred to another [facility], which is in [place]. PH [phone] Patient has been identified by name and birthdate. Duration of symptoms: N/A Person calling: self Call patient at: at home [phone] (home) [phone] (cell) Was an appointment scheduled: No Closing statement: Results or non-symptom based questions: Thank you for calling [facility], your call will be returned within the next business day. Krys East documented in this encounterParkview Health [facility]03-12-2025 Telephone encounter Note * Telephone Encounter - Krys Arellano - 08/18/2024 9:20 AM EDT Hoda is calling Kelsy Guillermo DO today to request that insulin lispro (HUMALOG KWIKPEN INSULIN) 100 unit/mL be transferred to another [facility], which is in [place]. PH [phone] Patient has been identified by name and birthdate. Duration of symptoms: N/A Person calling: self Call patient at: at home [phone] (home) [phone] (cell) Was an appointment scheduled: No Closing statement: Results or non-symptom based questions: Thank you for calling [facility], your call will be returned within the next business day. Krys East [facility]03-08-2025 Telephone encounter Note* Telephone Encounter - Kelsy Guillermo DO - 08/14/2024 3:02 PM EST Reviewed BG data- responded as follows: Hector Farleyi- I reviewed your BG data- the majority of these values are at goal for - continue your current regimen as you are doing: NPH 80 units at bedtime. Humalog 23 units prior to breakfast, 23 units prior to lunch, Humalog to 26 units prior to dinner. Take an + additional 5 units with Higher carb meals (camilo with * if/when you take the extra insulin so I can see if it is working or not). take 1/2 of the Humalog if you don't feel like you're going to eat enough or eat a lower carb meal.Camilo with 0 if you take less insulin. Will review again next week- thanks! Dr Guillermo [facility]03-08-2025 Miscellaneous Notes* Telephone Encounter - Kelsy Guillermo DO - 08/14/2024 3:02 PM EST Reviewed BG data- responded as follows: Hector Farleyi- I reviewed your BG data- the majority of these values are at goal for - continue your current regimen as you are doing: NPH 80 units at bedtime. Humalog 23 units prior to breakfast, 23 units prior to lunch, Humalog to 26 units prior to dinner. Take an + additional 5 units with Higher carb meals (camilo with * if/when you take the extra insulin so I can see if it is working or not). take 1/2 of the Humalog if you don't feel like you're going to eat enough or eat a lower carb meal.Camilo with 0 if you take less insulin. Will review again next week- thanks! Dr Guillermo documented in this encounterParkview Health [facility]03-04-2025 Telephone encounter Note * Telephone Encounter - Faina Levin MA - 08/10/2024 4:55 PM EST Spoke to patient. Please see mychart encounter. [facility]03-04-2025 Miscellaneous Notes* Telephone Encounter - Faina Levin MA - 08/10/2024 4:55 PM EST Spoke to patient. Please see mychart encounter. * Telephone Encounter - Amada Hills, RN - 08/10/2024 3:10 PM EST Faina, the pt thinks she missed your call and wants to speak with you personally, will yo please call her back at the number listed in contacts, she will keep the phone by her side. documented in this encounterParkview Health [facility]03-04-2025 Telephone encounter Note * Telephone Encounter - Faina Levin MA - 08/10/2024 4:54 PM EST Spoke to patient and updated her. [facility]03-04-2025 Miscellaneous Notes* Telephone Encounter - Faina Levin MA - 08/10/2024 4:54 PM EST Spoke to patient and updated her. * Addendum Note - Kelsy Guillermo DO - 08/10/2024 4:35 PM ESTAddended by: KELSY GUILLERMO on: 08/10/2024 04:35 PM Modules accepted: Orders * Addendum Note - Faina Levin MA - 08/10/2024 4:19 PM ESTAddended by: FAINA LEVIN on: 08/10/2024 04:19 PM Modules accepted: Orders * Telephone Encounter - Faina Levin MA - 08/10/2024 4:02 PM EST Spoke to tech at [facility] and she stated that she spoke to patient on Sunday 08/06 and advised that she has co pays because she has both Medicare and Medicaid. Advised patient that she can sign up for a program through Medicare so she wouldn't have co pays. I was advised that one of the co pays were $2.37. Tech ran claim while I was phone for onetouch test strips and it went through with zero copay and she can see that patient did apply for program. The lancets were cancelled upon receiving with no reason and pharmacy is requesting for them to be resent. Confirmed they received meter. Requester: Pharmacy Patients last Endocrinology visit occurred . Follow-up evaluation has been established Upcoming Endocrinology Appointments - Next 365 Days Visit Type Date Time Department EST [facility] 09/20/2024 1:40 PM ENDO [facility] EST KIMMY PATIENT 11/04/2024 11:00 AM ENDO DIAB ED [facility] . Requested Prescriptions Pending Prescriptions Disp Refills lancets (ONETOUCH DELICA PLUS LANCET) 30 gauge 100 Each 11 Sig: Use with blood glucose test four times a day. Insulin Dep? Yes Signed Prescriptions Disp Refills insulin lispro (HUMALOG KWIKPEN INSULIN) 100 unit/mL 45 mL 11 Si -23 - 26 units prior to each meal respectively + scale (upto 100 units/day) insulin NPH (HUMULIN N NPH INSULIN KWIKPEN) 100 unit/mL (3 mL) injection pen 45 mL 11 Si units at bedtime blood sugar diagnostic (ONETOUCH VERIO TEST STRIPS) test strip 150 Each 11 Sig: Use as instructed - TEST BLOOD SUGARS 4 TIMES DAILY Blood-Glucose Meter (ONETOUCH VERIO FLEX METER) 1 Each 0 Sig: Use to check blood glucose 4 times daily. lancets (ONETOUCH DELICA PLUS LANCET) 30 gauge 100 Each 11 Sig: Use with blood glucose test four times a day. Insulin Dep? Yes If patient is due for an appointment please route to provider for refill consideration and also to the endo scheduling pool. PSS NOTE: Patient needs scheduled appointment * Telephone Encounter - Faina Levin MA - 08/10/2024 1:49 PM EST Spoke to [facility] and they stated that onetouch prescription was transferred to another [facility] at other [facility] and she stated that they did not transfer over any of the OneTouch prescriptions. Spoke to patient and advised of above. While speaking to patient she mentioned that pharmacy gave her another Accu-check meter on Friday, which she started using. Advised patient of the conversation we had on 08/03 that a new prescription was sent for OneTouch meter, strips and lancets which are covered on patients formulary. Advised patient they were covered in full and she should not pay out of pocket any more. Patient again paid out of pocket for the same accu-check meter. Pharmacy is closed until 2pm and will call back again. * Telephone Encounter - Demetra Morris - 08/10/2024 10:46 AM EST Patient called and states that a prior authorization needs to be done for her blood glucose testingsupplies. Please advise if PA can be started. * Telephone Encounter - Faina Levin MA - 08/03/2024 4:12 PM EST Received fax from insurance requesting coverage review for Accu-Chek guide test strips. Spoke to patient and she stated that she has been paying out of pocket for test strips and lancets and really can't afford them. She spoke to insurance and was told prescriptions she received are not on formulary. The initial prescriptions sent by this office were sent in as generic and patient was given Accu-check at pharmacy. Spoke to insurance prior auth department and confirmed what is on formulary and we can send script and will be covered in full. Spoke to patient and advised. Pended Requester: Patient Patients last Endocrinology visit occurred 07/26/24. Follow-up evaluation has been established Upcoming Endocrinology Appointments - Next 365 Days Visit Type Date Time Department EST [facility] 09/20/2024 1:40 PM ENDO [facility] EST KIMMY PATIENT 11/04/2024 11:00 AM ENDO DIAB ED [facility] . Requested Prescriptions Pending Prescriptions Disp Refills insulin lispro (HUMALOG KWIKPEN INSULIN) 100 unit/mL 45 mL 11 Si -23 - 26 units prior to each meal respectively + scale (upto 100 units/day) insulin NPH (HUMULIN N NPH INSULIN KWIKPEN) 100 unit/mL (3 mL) injection pen 45 mL 11 Si units at bedtime blood sugar diagnostic (ONETOUCH VERIO TEST STRIPS) test strip 150 Each 11 Sig: Use as instructed - TEST BLOOD SUGARS 4 TIMES DAILY Blood-Glucose Meter (ONETOUCH VERIO FLEX METER) 1 Each 0 Sig: Use to check blood glucose 4 times daily. lancets (ONETOUCH DELICA PLUS LANCET) 30 gauge 100 Each 11 Sig: Use with blood glucose test four times a day. Insulin Dep? Yes If patient is due for an appointment please route to provider for refill consideration and also to the endo scheduling pool. PSS NOTE: Patient needs scheduled appointment No * Telephone Encounter - Faina Levin MA - 08/03/2024 2:27 PM EST Requester: Patient Patients last Endocrinology visit occurred 07/26/24. Follow-up evaluation has been established Upcoming Endocrinology Appointments - Next 365 Days Visit Type Date Time Department EST [facility] 09/20/2024 1:40 PM ENDO [facility] EST KIMMY PATIENT 11/04/2024 11:00 AM ENDO DIAB ED [facility] . Requested Prescriptions Pending Prescriptions Disp Refills insulin lispro (HUMALOG KWIKPEN INSULIN) 100 unit/mL 15 Each 11 Si -23 - 26 units prior to each meal respectively + scale (upto 100 units/day) insulin NPH (HUMULIN N NPH INSULIN KWIKPEN) 100 unit/mL (3 mL) injection pen 10 Each 11 Si units at bedtime If patient is due for an appointment please route to provider for refill consideration and also to the endo scheduling pool. PSS NOTE: Patient needs scheduled appointment No documented in this encounterParkview [facility]03-04-2025 Note* Addendum Note - Kelsy Guillermo DO - 08/10/2024 4:35 PM ESTAddended by: KELSY GUILLERMO on: 08/10/2024 04:35 PM Modules accepted: Orders [facility]03-04-2025 Note* Addendum Note - Faina Levin MA - 08/10/2024 4:19 PM ESTAddended by: FAINA LEVIN on: 08/10/2024 04:19 PM Modules accepted: Orders [facility]03-04-2025 Telephone encounter Note* Telephone Encounter - Faina Levin MA - 08/10/2024 4:02 PM EST Spoke to [employer] at [facility] and she stated that she spoke to patient on Sunday 08/06 and advised that she has co pays because she has both Medicare and Medicaid. Advised patient that she can sign up for a program through Medicare so she wouldn't have co pays. I was advised that one of the co pays were $2.37. Tech ran claim while I was phone for onetouch test strips and it went through with zero copay and she can see that patient did apply for program. The lancets were cancelled upon receiving with no reason and pharmacy is requesting for them to be resent. Confirmed they received meter. Requester: Pharmacy Patients last Endocrinology visit occurred . Follow-up evaluation has been established Upcoming Endocrinology Appointments - Next 365 Days Visit Type Date Time Department EST [facility] 09/20/2024 1:40 PM ENDO [facility] EST KIMMY PATIENT 11/04/2024 11:00 AM ENDO DIAB ED [facility] . Requested Prescriptions Pending Prescriptions Disp Refills lancets (ONETOUCH DELICA PLUS LANCET) 30 gauge 100 Each 11 Sig: Use with blood glucose test four times a day. Insulin Dep? Yes Signed Prescriptions Disp Refills insulin lispro (HUMALOG KWIKPEN INSULIN) 100 unit/mL 45 mL 11 Si -23 - 26 units prior to each meal respectively + scale (upto 100 units/day) insulin NPH (HUMULIN N NPH INSULIN KWIKPEN) 100 unit/mL (3 mL) injection pen 45 mL 11 Si units at bedtime blood sugar diagnostic (ONETOUCH VERIO TEST STRIPS) test strip 150 Each 11 Sig: Use as instructed - TEST BLOOD SUGARS 4 TIMES DAILY Blood-Glucose Meter (ONETOUCH VERIO FLEX METER) 1 Each 0 Sig: Use to check blood glucose 4 times daily. lancets (ONETOUCH DELICA PLUS LANCET) 30 gauge 100 Each 11 Sig: Use with blood glucose test four times a day. Insulin Dep? Yes If patient is due for an appointment please route to provider for refill consideration and also to the endo scheduling pool. PSS NOTE: Patient needs scheduled appointment [facility]03-04-2025 Telephone encounter Note* Telephone Encounter - Amada Hills RN - 08/10/2024 3:10 PM EST Faina, the pt thinks she missed your call and wants to speak with you personally, will yo please call her back at the number listed in contacts, she will keep the phone by her side. [facility]03-04-20[facility] Telephone encounter Note* Telephone Encounter - Faina Levin MA - 08/10/2024 1:49 PM EST Spoke to [facility] [place] and they stated that onetouch prescription was transferred to another [facility] [place] at other [facility] and she stated that they did not transfer over any of the OneTouch prescriptions. Spoke to patient and advised of above. While speaking to patient she mentioned that pharmacy gave her another Accu-check meter on Friday, which she started using. Advised patient of the conversation we had on 08/03 that a new prescription was sent for OneTouch meter, strips and lancets which are covered on patients formulary. Advised patient they were covered in full and she should not pay out of pocket any more. Patient again paid out of pocket for the same accu-check meter. Pharmacy is closed until 2pm and will call back again. [facility]03-04-2025 Telephone encounter Note* Telephone Encounter - Demetra Morris - 08/10/2024 10:46 AM EST Patient called and states that a prior authorization needs to be done for her blood glucose testingsupplies. Please advise if PA can be started. [facility]03-04-2025 Progress note* Quick Notes - William Gramajo MD - 08/10/2024 9:46 AM EST KJ - S: Hoda denies LOF, contractions or vaginal bleeding. O: 21w3d, see flow sheet SENSITIVE EXAM: Sensitive exam not performed. A/P: Assessment & Plan Obesity affecting in first trimester, unspecified obesity type Orders: URINE OB DIP B/O OBSTETRIC ULTRASOUND WHI; Standing Herpes simplex type 2 (HSV-2) infection affecting , antepartum, unspecified trimester Orders: URINE OB DIP B/O Pre-existing type 2 diabetes mellitus in in first trimester Continue insulin per . Orders: URINE OB DIP B/O OBSTETRIC ULTRASOUND WHI; Standing Chromosome abnormality Orders: URINE OB DIP B/O Encounter for supervision of high risk in first trimester, antepartum Orders: URINE OB DIP B/O 21 weeks gestation of Orders: URINE OB DIP B/O Reviewed ultrasound result. Follow up in 4 weeks. William Gramajo MD [facility]03-04-2025 Miscellaneous Notes* Quick Notes - William Gramajo MD - 08/10/2024 9:46 AM EST KJ - S: Hoda denies LOF, contractions or vaginal bleeding. O: 21w3d, see flow sheet SENSITIVE EXAM: Sensitive exam not performed. A/P: Assessment & Plan Obesity affecting in first trimester, unspecified obesity type Orders: URINE OB DIP B/O OBSTETRIC ULTRASOUND WHI; Standing Herpes simplex type 2 (HSV-2) infection affecting , antepartum, unspecified trimester Orders: URINE OB DIP B/O Pre-existing type 2 diabetes mellitus in in first trimester Continue insulin per . Orders: URINE OB DIP B/O OBSTETRIC ULTRASOUND WHI; Standing Chromosome abnormality Orders: URINE OB DIP B/O Encounter for supervision of high risk in first trimester, antepartum Orders: URINE OB DIP B/O 21 weeks gestation of Orders: URINE OB DIP B/O Reviewed ultrasound result. Follow up in 4 weeks. William Gramajo MD documented in this encounterParkview Health [facility]03-04-[facility] History of Present illness Narrative* Pooja Latham MD - 08/10/2024 9:37 AM EST MFM Consult follow up visit Subjective: Hoda is a 29yo @ 21w3d here for detailed anatomic survey and follow up visit in complicated by T2DM on insulin, history of preeclampsia, obesity. Hoda is doing fairly well today, feeling well. Glucoses better controlled than in prior , working with endocrinology and usinginsulin as recommended. Objective: LMP 03/13/2024 (Exact Date) BP 112/70 Alert, oriented, no acute distress Abdomen soft, nontender during US exam US shows: - Single, live, intrauterine . - biometry is consistent with the established gestational age. - No malformations were visualized on a detailed anatomic survey, although some anatomical structures were suboptimally seen as detailed below. - The amniotic fluid volume is normal amount. - The placenta is anterior, fundal. - The Transabdominal cervical length measures 34.8 mm with no evidence of funneling or other dynamic changes. - Not all structural malformations can be detected by ultrasound examination. Problem List Items Addressed This Visit Endocrinology Pre-existing type 2 diabetes mellitus in in first trimester - Primary Overview Diagnosed age 12 First tri Hgb A1c 10.5% Established with Dr. Guillermo -> 7.9% (POC on 06/07) - > planning repeat this month Current insulin (08/10/24): NPH 80/70 Humalog 23 +5 units with Higher carb meals Echo [] Scheduled EKG [] ordered Eye Exam [x] CMP [x] Hemoglobin A1C [x] 10.5 -> 7.9% POUL[employer]ER H/O macrosomia in infant in prior , currently Overview 10 lb 2oz at 37w4d Current Assessment & Plan Monthly growth assessment, measuring 11%ile at anatomy US today History of pre-eclampsia Overview Baseline preeclampsia labs normal Low dose aspirin Testing per T2DM problem Other Obesity affecting in first trimester Overview Pre BMI 31 Current Assessment & Plan TWG around 13 lbs from chart review History of bipolar disorder Overview Diagnosed in 2014 Two psychiatric hospitalizations in 2018 and 2020 Also history depression She currently sees Dr. Womack, a psychiatrist at [facility] in [place]. Taking Buspar and Prozac. Also sees a therapist Dr. Olmstead at the [facility]. She states that she is able and willing to go to the ER or call crisis if she experiences any suicidal thoughts Medical Decision Making: Problems: Moderate: 2+ stable chronic illnesses Risk: Moderate: Moderate risk from testing/treatment Medical Decision Making Level: 4 - Moderate Pooja Latham MD documented in this encounterParkview Health [facility]03-04-2025 Instructions* Patient Instructions* Sundeep Salvador MA - 08/10/2024 8:22 AM EST SEQUENTIAL SCREENINGS The [facility] offers sequential screenings for women who are interested in screenings for chromosomal abnormalities and certain defects during a . The sequential screen combinesultrasound and blood tests to determine the risk of chromosomal abnormalities, including Down's Syndrome (Trisomy 21) and Trisomy 18, as well as open neural tube defects including spina bifida. Ultrasound examination is performed between 11 weeks and 13 weeks gestational age. Blood tests are drawn after the ultrasound and again later in the between 15 and 21 weeks gestational age. Please let your physician know if you are interested in this testing. It will require an appointment withour firestopper technician. This is not an ultrasound performed by a physician in our office during a routine visit. SIGNS AND SYMPTOMS OF LABOR 1. Contractions every 10 minutes or more often 2. Clear, pink, or brownish fluid (water) leaking from vagina 3. Feeling that baby is pushing down, pressure 4. Low, dull backache 5. Cramps that feel like a period 6. Cramps with or without diarrhea If you notice any of the above symptoms, contact our office at [phone] and ask to speak with anurse. After hours, you can call doctors registry at [phone] OR call [facility] at [phone] ask to have the doctor marketing professional paged. If you consider this an emergency, dial [phone] or go to your nearest emergency department. NEED HELP? Are you dealing with a violent or abusive relationship? Are you a victim of rape or sexual assult? Call [facility] ([place]) 24 hour Crisis Hotline: 660.336.8058 or 572-375-1475. MANUAL Your Guide to a Healthy manual is now on-line. Visit [email or web address] to download your free copy documented in this encounterParkview Health [facility]03-02-2025 Telephone encounter Note * Telephone Encounter - Kelsy Guillermo DO - 08/08/2024 2:56 PM EST Reviewed BG data- responded as follows: Good afternoon- I reviewed your BG data- These numbers look good overall and are at/near goal for - continue your current regimen as you are doing: NPH 80 units at bedtime. Humalog 23 units prior to breakfast, 23 units prior to lunch, Humalog to 26 units prior to dinner. Take an + additional 5 units with Higher carb meals (camilo with * if/when you take the extra insulin so I can see if it is working or not). take 1/2 of the Humalog if you don't feel like you're going to eat enough or eat a lower carb meal.Camilo with 0 if you take less insulin. Will review again next week- thanks! Dr Guillermo [facility]03-02-2025 Miscellaneous Notes* Telephone Encounter - Kelsy Guillermo DO - 08/08/2024 2:56 PM EST Reviewed BG data- responded as follows: Good afternoon- I reviewed your BG data- These numbers look good overall and are at/near goal for - continue your current regimen as you are doing: NPH 80 units at bedtime. Humalog 23 units prior to breakfast, 23 units prior to lunch, Humalog to 26 units prior to dinner. Take an + additional 5 units with Higher carb meals (camilo with * if/when you take the extra insulin so I can see if it is working or not). take 1/2 of the Humalog if you don't feel like you're going to eat enough or eat a lower carb meal.Camilo with 0 if you take less insulin. Will review again next week- thanks! Dr Guillermo documented in this encounterPark[facility] Telephone encounter Note * Telephone Encounter - Faina LevinITZEL - 08/03/2024 4:12 PM EST Received fax from insurance requesting coverage review for Accu-Chek guide test strips. Spoke to patient and she stated that she has been paying out of pocket for test strips and lancets and really can't afford them. She spoke to insurance and was told prescriptions she received are not on formulary. The initial prescriptions sent by this office were sent in as generic and patient was given Accu-check at pharmacy. Spoke to insurance prior auth department and confirmed what is on formulary and we can send script and will be covered in full. Spoke to patient and advised. Pended Requester: Patient Patients last Endocrinology visit occurred 07/26/24. Follow-up evaluation has been established Upcoming Endocrinology Appointments - Next 365 Days Visit Type Date Time Department EST [facility] 09/20/2024 1:40 PM [facility] EST KIMMY PATIENT 11/04/2024 11:00 AM ENDO DIAB ED [facility] . Requested Prescriptions Pending Prescriptions Disp Refills insulin lispro (HUMALOG KWIKPEN INSULIN) 100 unit/mL 45 mL 11 Si -23 - 26 units prior to each meal respectively + scale (upto 100 units/day) insulin NPH (HUMULIN N NPH INSULIN KWIKPEN) 100 unit/mL (3 mL) injection pen 45 mL 11 Si units at bedtime blood sugar diagnostic (Med-Tek[employer] VERIO TEST STRIPS) test strip 150 Each 11 Sig: Use as instructed - TEST BLOOD SUGARS 4 TIMES DAILY Blood-Glucose Meter (Med-[employer] VERIO FLEX METER) 1 Each 0 Sig: Use to check blood glucose 4 times daily. lancets (Med-Tek[employer] DELICA PLUS LANCET) 30 gauge 100 Each 11 Sig: Use with blood glucose test four times a day. Insulin Dep? Yes If patient is due for an appointment please route to provider for refill consideration and also to the endo scheduling pool. PSS NOTE: Patient needs scheduled appointment No [facility]02-25-2025 Telephone encounter Note* Telephone Encounter - Faina Levin MA - 08/03/2024 2:27 PM EST Requester: Patient Patients last Endocrinology visit occurred 07/26/24. Follow-up evaluation has been established Upcoming Endocrinology Appointments - Next 365 Days Visit Type Date Time Department EST [facility] 09/20/2024 1:40 PM [facility] EST KIMMY PATIENT 11/04/2024 11:00 AM [facility] DIAB [facility] . Requested Prescriptions Pending Prescriptions Disp Refills insulin lispro (HUMALOG KWIKPEN INSULIN) 100 unit/mL 15 Each 11 Si -23 - 26 units prior to each meal respectively + scale (upto 100 units/day) insulin NPH (HUMULIN N NPH INSULIN KWIKPEN) 100 unit/mL (3 mL) injection pen 10 Each 11 Si units at bedtime If patient is due for an appointment please route to provider for refill consideration and also to the endo scheduling pool. PSS NOTE: Patient needs scheduled appointment No [facility]02-23-2025 Telephone encounter Note* Telephone Encounter - Kelsy Guillermo DO - 08/01/2024 8:55 AM EST Reviewed BG daata- responded as follows: Good morning- I reviewed your BG data- lets continue your current regimen for now: NPH 80 units at bedtime. Humalog 23 units prior to breakfast, 23 units prior to lunch, Humalog to 26 units prior to dinner. Take an + additional 5 units with Higher carb meals (camilo with * if/when you take the extra insulin so I can see if it is working or not). take 1/2 of the Humalog if you don't feel like you're going to eat enough or eat a lower carb meal.Camilo with 0 if you take less insulin Will review again next week- thanks! Dr Guillermo [facility]02-23-2025 Miscellaneous Notes* Telephone Encounter - Kelsy Guillermo DO - 08/01/2024 8:55 AM EST Reviewed BG daata- responded as follows: Good morning- I reviewed your BG data- lets continue your current regimen for now: NPH 80 units at bedtime. Humalog 23 units prior to breakfast, 23 units prior to lunch, Humalog to 26 units prior to dinner. Take an + additional 5 units with Higher carb meals (camilo with * if/when you take the extra insulin so I can see if it is working or not). take 1/2 of the Humalog if you don't feel like you're going to eat enough or eat a lower carb meal.Camilo with 0 if you take less insulin Will review again next week- thanks! Dr Guillermo documented in this encounterParkview [facility]02-17-2025 Instructions* Patient Instructions* Kelsy Guillermo DO - 07/26/2024 2:06 PM EST 1) check your sugars fasting (60-90 mg/dL) and 2 hours post meal (less than 120 mg/dL) 2) forward me your blood glucose data weekly ([email or web address])- 3) increase NPH to 80 units at bedtime. 4) continue Humalog 23 units prior to breakfast, 23 units prior to lunch, increase Humalog to 26 units prior to dinner. Take an + additional 5 units with Higher carb meals (camilo with * if/when you take the extra insulin so I can see if it is working or not).n 5) take 1/2 of the Humalog if you don't feel like you're going to eat enough or eat a lower carb meal. Camilo with 0 if you take less insulin 6) see me in 7 weeks for f/u. documented in this encounterParkview [facility]02-[facility]25 History of Present illness Narrative* Kelsy Guillermo DO - 07/26/2024 2:00 PM EST Reason for consultation: f/u - type 2 diabetes antepartum. Referring Physician:Dr Piper Julian MD My final recommendations will be communicated back to the requesting physician by way of shared Medical record or letter via US mail. HISTORY OF PRESENT ILLNESS; Ms. Byrne is a 29 year old F presenting at 19 weeks gestation for f/u regarding type 2 diabetes antepartum. Her initial visit with me was 05/03. Pt has 7 year old daughter- had DM during thatpregnancy- had macrosomia, delivered in [place]. She was initially diagnosed with type 2 diabetes at age 14. States she has been following with ophthalmology, ? New dx of retinopathy- she follows up with them on august 17. Does have peripheral neuropathy- states both parents have this as well. Shehas strong family hx of DM including mother, father, grandparents. She started taking insulin in 2022- however states she has bipolar disorder and discontinues medications during these episodes. Was on the following regimen at her first visit: Lantus 10 units at bedtime Humalog 4 units prior to meals Was switched to NPH + Humalog at her initial visit. She has been forwarding me her BG data weekly, which has been reviewed in conjunction with her CGM data. Last forwarded me her data on 07/20- her current regimen is as follows: NPH 75 units at bedtime. Humalog 18 units prior to breakfast, 18 units prior to lunch, Humalog to 22 units prior to dinner +additional 5 units with Higher carb meals (camilo with * if/when you take the extra insulin so I can see if it is working or not). Fasting- 90-96 mg/dL. 2 hour post meal- 77-128 mg/dL Was using CGM but was having issues with signal loss- so now she is using glucometer and checking 4x per day. Her prepregnancy weight was 191 lbs and her current weight is 183 lbs. Hypoglycemia frequency: infrequent but present at times. Hypoglycemia awareness: Yes Hyperglycemia Symptoms: denies blurry vision reports polyuria denies polydipsia reports nocturia denies rapid weight loss Last visit with OB was 07/23. Sees Dr Latham for anatomy scan on 08/10. Has echo coming up in august . No complaints/concerns at this time- doing ok overall. PAST MEDICAL HISTORY Diagnosis Date Asthma Bipolar H/O macrosomia in infant in prior , currently 05/07/2024 Herpes simplex type 2 (HSV-2) infection affecting , antepartum, unspecified trimester 04/19/2024 Hyperlipidemia LGA (large for gestational age) infant 12/23/2016 12/23/16 - >95% Polyhydramnios 01/01/2017 Pre-existing type 2 diabetes mellitus in in first trimester 06/15/2024 First trimester Hgb A1c 10.5%, now follows with Dr. Guillermo Recurrent UTI Type 2 diabetes mellitus (HCC) PAST SURGICAL HISTORY Procedure Laterality Date CHOLECYSTECTOMY D&C, DIAG AND/OR THERAPEUTIC 2017 FAMILY HISTORY Problem Relation Age of Onset Hyperlipidemia Mother Diabetes Mother Hypertension Mother other (neuropathy) Mother Diabetes Father Heart Father Hypertension Father Hyperlipidemia Father Thyroid Sister Multiple Sclerosis Sister Depression Sister Anxiety disorder Sister other (carpal tunnel) Sister Hyperlipidemia Brother No Known Problems Brother Heart Maternal Grandmother Diabetes Maternal Grandfather Obesity Maternal Grandfather Diabetes Paternal Grandmother Heart Attack Paternal Grandmother Cancer Paternal Grandfather Social History Tobacco Use Smoking status: Every Day Current packs/day: 0.50 Average packs/day: 0.5 packs/day for 14.0 years (7.0 ttl pk-yrs) Types: Cigarettes Smokeless tobacco: Never Vaping Use Vaping status: Never Used Substance Use Topics Alcohol use: No Drug use: No Current Outpatient Medications Medication Sig Dispense Refill keTORolac Tromethamine (ACLUAR LS) 0.4 % drop prednisoLONE acetate (PRED FORTE) 1 % ophthalmic suspension pimecrolimus (ELIDEL) 1 % cream PLEASE SEE ATTACHED FOR DETAILED DIRECTIONS insulin lispro (HUMALOG KWIKPEN INSULIN) 100 unit/mL 18 -18 - 22 units prior to each meal respectively + scale (upto 100 units/day) 15 Each 11 insulin NPH (HUMULIN N NPH INSULIN KWIKPEN) 100 unit/mL (3 mL) injection pen 75 units at bedtime 10Each 11 Blood-Glucose Meter (ACCU-CHEK GUIDE ME GLUCOSE MTR) USE INSTRUCTED. 1 Each 1 aspirin, enteric coated (ECOTRIN LOW STRENGTH) 81 mg EC tablet Take 2 tablets by mouth daily at bedtime. 100 tablet 1 blood sugar diagnostic (BLOOD GLUCOSE TEST) test strip Use with blood glucose test four times a day. 150 Strip 11 Lancets Use with blood glucose test four times a day. 150 Each 11 busPIRone (BUSPAR) 15 mg tablet clobetasol (TEMOVATE) 0.05 % cream PLEASE SEE ATTACHED FOR DETAILED DIRECTIONS albuterol HFA (PROVENTIL HFA, VENTOLIN HFA) 90 mcg/actuation inhaler Inhale 2 Puffs as instructed every 6 hours as needed. VIT 10-IRON FUM-FOLIC ORAL Take by mouth. Insulin Friendship, Disposable, (BD ULTRAFINE III MINI PEN) 31 gauge x 3/16 4 times/day 150 Each 5 Blood-Glucose Sensor (FREESTYLE ZOLTAN 3 PLUS SENSOR) candice Use as instructed. Change sensors every 14 days (Patient not taking: Reported on 07/13/2024) 2 Each 5 FLUoxetine (PROZAC) 40 mg capsule Take 40 mg by mouth. albuterol HFA (PROVENTIL HFA, VENTOLIN HFA) 90 mcg/actuation inhaler Inhale 2 Puffs as instructed. No current facility-administered medications for this visit. Allergies As of Date: 07/26/2024 Allergen Noted Reaction ALUMINUM-MAGNESIUM HYDROXIDE 02/05/2018 GI Upset ARIPIPRAZOLE 12/13/2022 Mental Status Change QUETIAPINE 10/04/2018 Other: See Comments and Shortness of Breath METOCLOPRAMIDE 02/10/2019 Vomiting, Hives, and Unknown PROMETHAZINE 07/11/2023 GI Upset ZOFRAN [ONDANSETRON] 07/11/2023 Vomiting ZOLOFT [SERTRALINE] 07/11/2023 Mental Status Change Fully Assessed 07/13/2024 REVIEW OF SYSTEMS: General: no fever and no chills- has lost weight in the Skin: no rashes, pruritis or dry skin Eyes: no blurred or double vision or eye pain Cardiac: denies chest pain, heart palpitations or orthopnea Pulmonary: denies wheezing, productive cough or exertional dyspnea GI: nausea and vomiting Musc: denies history of upper or lower extremity weakness Reproductive: gravid at 19+ weeks gestation, menses regular prior to the . Endocrine: complains of polyuria and nocturia Hematology: Negative for anemia, easy bleeding and bruising. PHYSICAL EXAM: BP 127/58 Pulse 94 Wt 83.4 kg (183 lb 15.6 oz) LMP 03/13/2024 (Exact Date) BMI 33.22 kg/m GENERAL: Alert, no distress, cooperative SKIN: Skin color, texture, turgor normal. No rashes or lesions. HEAD/SINUSES: No significant findings EYES: sclera non-icteric, EOMs intact. ABDOMEN: gravid at 19+ weeks EXTREMITIES: Normal exam of the extremities NEURO: AAO x 3, no focal deficits. The remainder of the physical exam is noncontributory. DATA: Hemoglobin A1C (%) Date Value 12/16/2016 6.6 Hemoglobin A1C (POCT) (%) Date Value 06/07/2024 7.9 POC HbA1c 06/07/24 improved to 7.9%. IMPRESSION: Ms. Kaur is a 29 year old female at 19+ weeks gestation here regarding type 2 diabetes antepartum. RECOMMENDATIONS: 1. The patient was counseled regarding the maternal and risks of hyperglycemia during . risks include, but are not limited to: congenital abnormalities, hypoxia and stillbirth, macrosomia, shoulder dystocia and hypoglycemia. Maternal risks include increased risks of pre-eclampsia and delivery. I discussed in detail with her that her risk of significant adverse outcome is high- 15-20% given her HbA1c over 10% at conception- however she has done much better during the - most recent HbA1c is 7.9%. Will reassess at f/u. 2. I recommend the patient check her blood glucose fasting and 2 hour after each meal, we have provided her with a glucometer if she does not have one. The following blood glucose targets were discussed: fasting blood glucose concentration between 60-90 mg/dL, and 2 hour postprandial blood glucose c oncentration of less than 120 mg/dL. She was encouraged to limit carbohydrate intake, to walk aftermeals, (if not contraindicated) and will be scheduled with our dietitian, (if not done already). Regarding her blood glucose management, I recommend she do the followin) check your sugars fasting (60-90 mg/dL) and 2 hours post meal (less than 120 mg/dL) 2) forward me your blood glucose data weekly ( )- 3) increase NPH to 80 units at bedtime. 4) continue Humalog 23 units prior to breakfast, 23 units prior to lunch, increase Humalog to 26 units prior to dinner. Take an + additional 5 units with Higher carb meals (camilo with * if/when you take the extra insulin so I can see if it is working or not). 5) take 1/2 of the Humalog if you don't feel like you're going to eat enough or eat a lower carb meal. Camilo with 0 if you take less insulin 6) see me in 7 weeks for f/u (prefers in person). 3. ophthalmology- she is following with ophthalmology- ? New DX of DR. Cox spent a total of 30 minutes on the date of the service which included preparing to see the patient, [id number] patient care, completing clinical documentation, obtaining and/or reviewing separately obtained history, performing a medically appropriate examination, counseling and educating the pat ient/family/caregiver, and ordering medications, tests, or procedures. Kelsy Guillermo DO documented in this encounterPark[facility] History of Present illness Narrative* William Gramajo MD - 07/23/2024 11:27 AM EST Melissa Byrne is a 29 year old female who presents for problem visit. HPI: Patient presents with concerns over possible herpes outbreak as had a little vulvar irritation. She denies complaints. 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 History LMP: 03/13/2024 (Exact Date), Age at Menarche: 13 Age at First : Age at Menopause: Grades 1 Thru 6 Visiting Teacher History Comments: Sexual Activity: Yes; Male Contraception: No contraception data on record PAST MEDICAL HISTORY Diagnosis Date Asthma Bipolar H/O macrosomia in in prior , currently 05/07/2024 Herpes simplex type 2 (HSV-2) infection affecting , antepartum, unspecified trimester 04/19/2024 Hyperlipidemia LGA (large for gestational age) infant 12/23/2016 12/23/16 - >95% Polyhydramnios 01/01/2017 Pre-existing type 2 diabetes mellitus in in first trimester 06/15/2024 First trimester Hgb A1c 10.5%, now follows with Dr. Guillermo Recurrent UTI Type 2 diabetes mellitus (HCC) PAST SURGICAL HISTORY Procedure Laterality Date CHOLECYSTECTOMY D&C, DIAG AND/OR THERAPEUTIC 2017 FAMILY HISTORY Problem Relation Age of Onset Hyperlipidemia Mother Diabetes Mother Hypertension Mother other (neuropathy) Mother Diabetes Father Heart Father Hypertension Father Hyperlipidemia Father Thyroid Sister Multiple Sclerosis Sister Depression Sister Anxiety disorder Sister other (carpal tunnel) Sister Hyperlipidemia Brother No Known Problems Brother Heart Maternal Grandmother Diabetes Maternal Grandfather Obesity Maternal Grandfather Diabetes Paternal Grandmother Heart Attack Paternal Grandmother Cancer Paternal Grandfather Social History Tobacco Use Smoking status: Every Day Current packs/day: 0.50 Average packs/day: 0.5 packs/day for 14.0 years (7.0 ttl pk-yrs) Types: Cigarettes Smokeless tobacco: Never Vaping Use Vaping status: Never Used Substance Use Topics Alcohol use: No Drug use: No Current Outpatient Medications Medication Sig insulin lispro (HUMALOG KWIKPEN INSULIN) 100 unit/mL 18 -18 - 22 units prior to each meal respectively + scale (upto 100 units/day) insulin NPH (HUMULIN N NPH INSULIN KWIKPEN) 100 unit/mL (3 mL) injection pen 75 units at bedtime Blood-Glucose Meter (ACCU-CHEK GUIDE ME GLUCOSE MTR) USE INSTRUCTED. aspirin, enteric coated (ECOTRIN LOW STRENGTH) 81 mg EC tablet Take 2 tablets by mouth daily at bedtime. blood sugar diagnostic (BLOOD GLUCOSE TEST) test strip Use with blood glucose test four times a day. Lancets Use with blood glucose test four times a day. busPIRone (BUSPAR) 15 mg tablet clobetasol (TEMOVATE) 0.05 % cream PLEASE SEE ATTACHED FOR DETAILED DIRECTIONS albuterol HFA (PROVENTIL HFA, VENTOLIN HFA) 90 mcg/actuation inhaler Inhale 2 Puffs as instructed every 6 hours as needed. VIT 10-IRON FUM-FOLIC ORAL Take by mouth. Insulin Friendship, Disposable, (BD ULTRAFINE III MINI PEN) 31 gauge x 3/16 4 times/day Blood-Glucose Sensor (FREESTYLE ZOLTAN 3 PLUS SENSOR) candice Use as instructed. Change sensors every 14 days (Patient not taking: Reported on 07/13/2024) FLUoxetine (PROZAC) 40 mg capsule Take 40 mg by mouth. albuterol HFA (PROVENTIL HFA, VENTOLIN HFA) 90 mcg/actuation inhaler Inhale 2 Puffs as instructed. No current facility-administered medications for this visit. Allergies As of Date: 07/23/2024 Allergen Noted Reaction ALUMINUM-MAGNESIUM HYDROXIDE 02/05/2018 GI Upset ARIPIPRAZOLE 12/13/2022 Mental Status Change QUETIAPINE 10/04/2018 Other: See Comments and Shortness of Breath METOCLOPRAMIDE 02/10/2019 Vomiting, Hives, and Unknown PROMETHAZINE 07/11/2023 GI Upset ZOFRAN [ONDANSETRON] 07/11/2023 Vomiting ZOLOFT [SERTRALINE] 07/11/2023 Mental Status Change Fully Assessed 07/13/2024 Allergies and current medication updated:Yes SENSITIVE EXAM: The sensitive examination was discussed with the Patient or Patient's Authorized Workforce Staffing Advisor. As applicable, any other physician, advance practice provider, medical student, or other health professional student that will be observing or involved in the sensitive examination for educational or training purposes was discussed with the Patient or Authorized Workforce Staffing Advisor. The Patient or Authorized Workforce Staffing Advisor has agreed to proceed with the sensitive examination. (Sensitive examination includes inspection and/or palpation of the breasts, pelvis, prostate and anorectal regions). EXAM: LMP 03/13/2024 GENERAL: pleasant, female in no apparent distress PELVIC: external genitalia normal, normal Bartholin's glands, urethra, Marquand's glands, no vulvar lesions ASSESSMENT AND PLAN: Assessment & Plan Vulvar irritation Patient reassured or normal vulvar exam and no evidence of HSV outbreak. Follow up for care. Medical Decision Making: Problems: Low: Acute, uncomplicated illness or injury Risk: Low: Low risk from testing/treatment Medical Decision Making Level: 3 - Low William Gramajo MD documented in this encounterParkview Health [facility]02-[facility]-2025 Telephone encounter Note * Telephone Encounter - Kelsy Guillermo DO - 07/20/2024 9:40 AM EST Reviewed BG data- responded as follows: Good morning- I reviewed your BG data. These numbers are near goal- I w9ould recommend that you adjust insulin slightly as below: increase NPH to 75 units at bedtime. continue Humalog 18 units prior to breakfast, 18 units prior to lunch, increase Humalog to 22 unitsprior to dinner. Take a + additional 5 units with Higher carb meals (camilo with * if/when you takethe extra insulin so I can see if it is working or not). Will review again next week- thanks! KB [facility]02-11-2025 Miscellaneous Notes* Telephone Encounter - Kelsy Guillermo DO - 07/20/2024 9:40 AM EST Reviewed BG data- responded as follows: Good morning- I reviewed your BG data. These numbers are near goal- I w9ould recommend that you adjust insulin slightly as below: increase NPH to 75 units at bedtime. continue Humalog 18 units prior to breakfast, 18 units prior to lunch, increase Humalog to 22 unitsprior to dinner. Take a + additional 5 units with Higher carb meals (camilo with * if/when you takethe extra insulin so I can see if it is working or not). Will review again next week- thanks! KB documented in this encounterParkview Health [facility]02-10-2025 Telephone encounter Note * Telephone Encounter - Carrie Mata MA - 07/19/2024 9:26 AM EST Patient has been identified by name and date of : Yes Patient phones requesting refills as follows: Requested Prescriptions Pending Prescriptions Disp Refills ACCU-CHEK GUIDE ME GLUCOSE MTR Sig: USE INSTRUCTED. Last appointment: 06/07/2024 Next scheduled appointment: Appointments for Next 60 Days Date Time Provider Location Dept Phone 07/26/2024 2:00 PM KELSY GUILLERMO [facility] [phone] 08/10/2024 8:00 AM I TECH 1 ORNAMENTER MFM [facility] [phone] 08/10/2024 8:00 AM ORNAMENTER MFM [facility] [phone] 08/10/2024 9:00 AM POOJA LATHAM [facility] [phone] 08/10/2024 9:10 AM WILLIAM GRAMAJO [facility] [phone] 08/24/2024 1:00 PM PAMELA HASKINS [facility] [phone] 08/24/2024 1:00 PM ECHO LAB [facility] [phone] RX INSTRUCTIONS: Respond to pharmacy only and close encounter Carrie Mata MA [facility] Work Phone: [phone] Miscellaneous Notes* Telephone Encounter - Carrie Mata MA - 07/19/2024 9:26 AM EST Patient has been identified by name and date of : Yes Patient phones requesting refills as follows: Requested Prescriptions Pending Prescriptions Disp Refills ACCU-CHEK GUIDE ME GLUCOSE MTR Sig: USE INSTRUCTED. Last appointment: 06/07/2024 Next scheduled appointment: Appointments for Next 60 Days Date Time Provider Location Dept Phone 07/26/2024 2:00 PM KELSY GUILLERMO [facility] [phone] 08/10/2024 8:00 AM WHI TECH 1 ORNAMENTER MFM [facility] [place] [facility] [phone] 08/10/2024 8:00 AM ORNAMENTER MFM [facility] [phone] 08/10/2024 9:00 AM POOJA LATHAM [place] [facility] [phone] 08/10/2024 9:10 AM WILLIAM GRAMAJO [facility] [phone] 08/24/2024 1:00 PM PAMELA HASKINS [facility] [phone] 08/24/2024 1:00 PM ECHO LAB [facility] [phone] RX INSTRUCTIONS: Respond to pharmacy only and close encounter Carrie Mata MA documented in this encounterParkview Health [facility]02-05-2025 Telephone encounter Note * Telephone Encounter - Kelsy Guillermo DO - 07/14/2024 10:37 AM EST Reviewed BG data- responded as follows: Good morning- sorry for the delay in response! I reviewed your BG data- these number are at/near goal for - continue your current regimen: NPH 70 units at bedtime. Humalog 18 units prior to each meal + additional 5 units with Higher carb meals (camilo with * if/when you take the extra insulin so I can see if it is working or not). Will review again next week- thanks! KB [facility]02-05-2025 Miscellaneous Notes* Telephone Encounter - Kelsy Guillermo DO - 07/14/2024 10:37 AM EST Reviewed BG data- responded as follows: Good morning- sorry for the delay in response! I reviewed your BG data- these number are at/near goal for - continue your current regimen: NPH 70 units at bedtime. Humalog 18 units prior to each meal + additional 5 units with Higher carb meals (camilo with * if/when you take the extra insulin so I can see if it is working or not). Will review again next week- thanks! KB documented in this encounterPark[facility] Progress note* Quick Notes - William Gramajo MD - 07/13/2024 11:33 AM EST KJ - VB No. LOF No. CTXS No. Movement: absent. Other c/o: No. Medication list reviewed. Physical Exam See Flow Sheet Gen: no accute distress, well appearing A/P 17w3d Estimated Date of Delivery: 12/18/24 Early Anatomy US with MFM today DM - managed by H/corinne preE - advised on aspirin at bedtime William Gramajo MD [facility]02-04-2025 Miscellaneous Notes* Quick Notes - William Gramajo MD - 07/13/2024 11:33 AM EST KJ - VB No. LOF No. CTXS No. Movement: absent. Other c/o: No. Medication list reviewed. Physical Exam See Flow Sheet Gen: no accute distress, well appearing A/P 17w3d Estimated Date of Delivery: 12/18/24 Early Anatomy US with MFM today DM - managed by H/o preE - advised on aspirin at bedtime William Gramajo MD documented in this encounterParkview [facility] History of Present illness Narrative* Pooja Latham MD - 07/13/2024 10:47 AM EST MFM Consult follow up visit Subjective: Hoda is a 29yo @ 17w3d here for early anatomic survey and follow up visit in complicated by T2DM on insulin, history of preeclampsia, obesity. Amie is doing well today, feeling much better than last week when she unfortunately had influenza A. She has recovered, reports glucoses mostly in goal range with some fasting 95-100. Objective: LMP 03/13/2024 (Exact Date) BP 110/60 Alert, oriented, no acute distress Abdomen soft, nontender during US exam US shows: The patient is referred for a standard anatomic survey. - Single, live, intrauterine . - biometry is consistent with the established gestational age. - No malformations were visualized on a standard anatomic survey, although some anatomical structures were suboptimally seen. - The amniotic fluid volume is normal amount. - The placenta is anterior. - The Transabdominal cervical length measures 33 mm with no evidence of funneling or other dynamic changes. - Not all structural malformations can be detected by ultrasound examination. Problem List Items Addressed This Visit Endocrinology Pre-existing type 2 diabetes mellitus in in first trimester - Primary Overview Diagnosed age 12 First tri Hgb A1c 10.5% Established with Dr. Guillermo -> 7.9% (POC on 06/07) Current insulin (07/13/24): NPH 70u nightly Humalog with 5u additional for high carb meals (patient reports mostly using 23u with meals) Echo [] Scheduled EKG [] ordered Eye Exam [x] CMP [x] Hemoglobin A1C [x] 10.5 -> 7.9% Current Assessment & Plan Detailed anatomic survey 20w echocardiogram 22-24w (scheduled) Monthly growth US testing at 32 weeks [employer] H/O macrosomia in infant in prior , currently Overview 10 lb 2oz at 37w4d History of pre-eclampsia Overview Baseline preeclampsia labs normal Low dose aspirin Testing per T2DM problem Current Assessment & Plan BP normal today Other Visit Diagnoses with uncertain dates in first trimester Medical Decision Making: Problems: Moderate: 2+ stable chronic illnesses Risk: Moderate: Moderate risk from testing/treatment Medical Decision Making Level: 4 - Moderate Pooja Latham MD July 13, 2024 10:53 AM documented in this encounterParkview [facility]02-04-2025 Instructions* Patient Instructions* Juana Terrazas RN - 07/13/2024 9:46 AM EST SEQUENTIAL SCREENINGS The [facility] offers sequential screenings for women who are interested in screenings for chromosomal abnormalities and certain defects during a . The sequential screen combinesultrasound and blood tests to determine the risk of chromosomal abnormalities, including Down's Syndrome (Trisomy 21) and Trisomy 18, as well as open neural tube defects including spina bifida. Ultrasound examination is performed between 11 weeks and 13 weeks gestational age. Blood tests are drawn after the ultrasound and again later in the between 15 and 21 weeks gestational age. Please let your physician know if you are interested in this testing. It will require an appointment withour firestopper technician. This is not an ultrasound performed by a physician in our office during a routine visit. SIGNS AND SYMPTOMS OF LABOR 1. Contractions every 10 minutes or more often 2. Clear, pink, or brownish fluid (water) leaking from vagina 3. Feeling that baby is pushing down, pressure 4. Low, dull backache 5. Cramps that feel like a period 6. Cramps with or without diarrhea If you notice any of the above symptoms, contact our office at [phone] and ask to speak with anurse. After hours, you can call doctors registry at [phone] OR call [facility] at [phone] ask to have the doctor marketing professional paged. If you consider this an emergency, dial 9-1-9 or go to your nearest emergency department. NEED HELP? Are you dealing with a violent or abusive relationship? Are you a victim of rape or sexual assult? Call [facility] ([facility] 24 hour Crisis Hotline: 203.166.6335 or 100-623-9183. MANUAL Your Guide to a Healthy manual is now on-line. Visit [email or web address] to download your free copy documented in this encounterParkview Health [facility]01-26-2025 Telephone encounter Note * Telephone Encounter - Kelsy Guillermo DO - 07/04/2024 3:29 PM EST Reviewed BG data- responded as follows: Good afternoon- I reviewed your BG data (are you out of strips?? you don't have data 06/30-07/02?)- let me know if we can help you with this. Regarding your BG that are here- these are at/near goal. Lets continue your current regimen this week: NPH 70 units at bedtime. Humalog 18 units prior to each meal + additional 5 units with Higher carb meals (camilo with * if/when you take the extra insulin so I can see if it is working or not). Will review again next week- thanks! NILES [facility]01-26-2025 Miscellaneous Notes* Telephone Encounter - Kelsy Guillermo DO - 07/04/2024 3:29 PM EST Reviewed BG data- responded as follows: Good afternoon- I reviewed your BG data (are you out of strips?? you don't have data 06/30-07/02?)- let me know if we can help you with this. Regarding your BG that are here- these are at/near goal. Lets continue your current regimen this week: NPH 70 units at bedtime. Humalog 18 units prior to each meal + additional 5 units with Higher carb meals (camilo with * if/when you take the extra insulin so I can see if it is working or not). Will review again next week- thanks! KB documented in this encounterPark[facility]01-24-2025 Telephone encounter Note * Telephone Encounter - William Gramajo MD - 07/02/2024 10:08 AM EST Noted William Gramajo MD [facility] Work Phone: 1(359) 770-518001-24-2025 Miscellaneous Notes* Telephone Encounter - William Gramajo MD - 07/02/2024 10:08 AM EST Noted William Gramajo MD * Telephone Encounter - Charlette Starkey RN - 07/02/2024 9:20 AM EST 15w6d Calling to update that she went to ER yesterday and was diagnosed with influenza A. Next OB visit 07/13/24. Advised to continue to rest, push fluids, tylenol as needed for fever/body aches. She has safe meds list already to refer to. They did give her rx for Tamiflu. Advised to contact PCP or go to urgent or ER for worsening or prolonged symptoms if needed. Patient agreed. Only call with furtheradvice. Charlette Starkey RN documented in this encounterParkview Health [facility]01-24-2025 Telephone encounter Note * Telephone Encounter - Charlette Starkey RN - 07/02/2024 9:20 AM EST 15w6d Calling to update that she went to ER yesterday and was diagnosed with influenza A. Next OB visit 07/13/24. Advised to continue to rest, push fluids, tylenol as needed for fever/body aches. She has safe meds list already to refer to. They did give her rx for Tamiflu. Advised to contact PCP or go to urgent or ER for worsening or prolonged symptoms if needed. Patient agreed. Only call with furtheradvice. Charlette Starkey RN [facility]01-20-2025 Telephone encounter Note* Telephone Encounter - Keshav Loving MD - 06/28/2024 8:49 AM EST Agree with recommendations thanks [facility] Work Phone: 1(825) 893-616901-20-2025 Miscellaneous Notes* Telephone Encounter - Keshav Loving MD - 06/28/2024 8:49 AM EST Agree with recommendations thanks * Telephone Encounter - Charlette Starkey RN - 06/28/2024 8:14 AM EST 15w2d Calling because she had cramping every couple minutes for about 6 hours yesterday. She was able to sleep, but then had a few again this morning then stopped for now. No bleeding. States when crampingdid occur rated 6/10 on the pain scale. Yesterday she stated drank 24oz bottle of Propelle. Explained she needs to drinking more fluids than that. Encouraged 8-10 glasses of water a day. Advised to push fluids and continue to monitor. If pain returns and does not go away or she develops bleeding orother concerns to call office back. Only call with further advice. Charlette Starkey RN documented in this encounterParkview Health [facility]01-20-2025 Telephone encounter Note * Telephone Encounter - Charlette Starkey RN - 06/28/2024 8:14 AM EST 15w2d Calling because she had cramping every couple minutes for about 6 hours yesterday. She was able to sleep, but then had a few again this morning then stopped for now. No bleeding. States when crampingdid occur rated 6/10 on the pain scale. Yesterday she stated drank 24oz bottle of Propelle. Explained she needs to drinking more fluids than that. Encouraged 8-10 glasses of water a day. Advised to push fluids and continue to monitor. If pain returns and does not go away or she develops bleeding orother concerns to call office back. Only call with further advice. Charlette Starkey RN [facility]01-17-2025 Miscellaneous Notes* Telephone Encounter - Kelsy Guillermo DO - 06/25/2024 11:29 AM EST Reviewed BG data- responded as follows; Good morning- I reviewed your BG data- Lets increase NPH to 70 units at bedtime. Continue Humalog 18 units prior to each meal + additional 5 units with Higher carb meals (camilo with * if/when you take the extra insulin so I can see if it is working or not). Will review again next week- thanks! Dr Guillermo documented in this encounterParkview Health [facility]01-17-2025 Telephone encounter Note * Telephone Encounter - Kelsy Guillermo DO - 06/25/2024 11:29 AM EST Reviewed BG data- responded as follows; Good morning- I reviewed your BG data- Lets increase NPH to 70 units at bedtime. Continue Humalog 18 units prior to each meal + additional 5 units with Higher carb meals (camilo with * if/when you take the extra insulin so I can see if it is working or not). Will review again next week- thanks! Dr Guillermo [facility]01-14-2025 Telephone encounter Note* Telephone Encounter - Ezra Crabtree RN - 06/22/2024 8:18 AM EST Called Melissa J Chavez and identified by name and date of . Melissa Byrne was informedof negative Non-Invasive Testing (NIPT) results for Trisomy 21, Trisomy 18 and Trisomy 13.Patient was also notified of the result of no sex chromosome aneuploidy detected. Patient wishes toknow sex, which is reported as: female. Reviewed with patient Melissa Byrne that NIPT is considered screening and not diagnostic, so this result greatly reduces, but does not eliminate the chance that the fetus could have trisomy 21, trisomy 18, trisomy 13 or sex chromosome aneuploidy. Melissa Byrne indicated understanding this information. Patient advised to follow up with AFP neural tube defect screening (blood draw) at 16-18 weeks gestation and 18-20 week detailed anatomy ultrasound. Also instructed to follow-up with Primary OB Provider. Ezra Crabtree RN [facility]01-14-2025 Miscellaneous Notes* Telephone Encounter - Ezra Crabtree RN - 06/22/2024 8:18 AM EST Called Melissa J Chavez and identified by name and date of . Melissa J Chavez was informedof negative Non-Invasive Testing (NIPT) results for Trisomy 21, Trisomy 18 and Trisomy 13.Patient was also notified of the result of no sex chromosome aneuploidy detected. Patient wishes toknow sex, which is reported as: female. Reviewed with patient Melissa Ean Byrne that NIPT is considered screening and not diagnostic, so this result greatly reduces, but does not eliminate the chance that the fetus could have trisomy 21, trisomy 18, trisomy 13 or sex chromosome aneuploidy. Melissa Byrne indicated understanding this information. Patient advised to follow up with AFP neural tube defect screening (blood draw) at 16-18 weeks gestation and 18-20 week detailed anatomy ultrasound. Also instructed to follow-up with Primary OB Provider. Ezra Crabtree RN documented in this encounterParkview Health [facility]01-11-2025 Telephone encounter Note * Telephone Encounter - Kelsy Guillermo DO - 06/19/2024 3:18 PM EST Reviewed BG data- responded as follows: Good afternoon- I reviewed your BG data/CGM data- your sensor average BG is 122 mg/dL. You are doing well overall. Lets increase NPH again to 64 units at bedtime. Continue Humalog 18 units prior to each meal + 5 units with Higher carb meals. Will review again next week- thanks! Dr Guillermo [facility]01-11-2025 Miscellaneous Notes* Telephone Encounter - Kelsy Guillermo DO - 06/19/2024 3:18 PM EST Reviewed BG data- responded as follows: Good afternoon- I reviewed your BG data/CGM data- your sensor average BG is 122 mg/dL. You are doing well overall. Lets increase NPH again to 64 units at bedtime. Continue Humalog 18 units prior to each meal + 5 units with Higher carb meals. Will review again next week- thanks! Dr Guillermo documented in this encounterParkview Health [facility] Hospital01-08-2025 History of Present illness Narrative* Carrie Larsen, BRICE - 06/16/2024 10:[address] [facility] Medical Nutrition Therapy Visit Type: Virtual: I have discussed the nature of this visit with the patient which will occur via [facility] (Phone, Virtual Visit) and she agrees to proceed with this interaction. I have communicated my name and active licensure. The patient's identity and physical location wereverified at the time of this visit. Either the patient or their legal underwriting account representative has been informed of the risks and benefits of -- and alternatives to -- treatment through a remote evaluation andconsents to proceed with the evaluation remotely. Patient states reason for visit: Type 2 DM during Management Initial DEMOGRAPHICS: Co-Morbidities: PAST MEDICAL HISTORY Diagnosis Date Asthma Bipolar H/O macrosomia in infant in prior , currently 05/07/2024 Herpes simplex type 2 (HSV-2) infection affecting , antepartum, unspecified trimester 04/19/2024 Hyperlipidemia LGA (large for gestational age) 12/23/2016 12/23/16 - >95% Polyhydramnios 01/01/2017 Pre-existing type 2 diabetes mellitus in in first trimester 06/15/2024 First trimester Hgb A1c 10.5%, now follows with Dr. Guillermo Recurrent UTI Type 2 diabetes mellitus (HCC) Activity: Do you do a regular exercise: not discussed Symptoms: Patient's symptoms are as follows: none reported How many hours of sleep on average? Did not report Diet History: Breakfast 8-8:30 am: sausage egg and cheese croissant sandwich Lunch 12-1 pm - goes to lunch with BF: grilled cheese or fast food (chicken or hamburger or sometimes just fries) Dinner 6-7 pm: soup and grilled cheese + canned vegetables (green beans, peas); tacos (1 large shell or 2 small shells) with lean ground beef + tomato and cheese + sc or with cheesy rice Snacks: Rarely, unless she is going low - will have 1/2 cup juice -has some protein yogurt Pt receives Fluids: water or sometimes powerade zero sugar or propel ETOH: none Dining/eating out? Yes, almost daily Appetite: low Allergies: No Food Allergy Patient / Provider Comments: -Type 2 diabetes antepartum -Pt has 7 year old daughter- had DM during that - had macrosomia, delivered in [place]. -She was initially diagnosed with type 2 diabetes at age 14 -reports she does not have her top teeth and can't wear her dentures because they are too big > she is planning on calling the dentist and rescheduling appt -can struggle with hard foods such a raw vegetables and takes small bites -current GA: 13w4d -she is using the Jugostyle zoltan 3 plus CGM and checking BG with meter + logging -pt is taking 58 units of Humulin at bedtime and 18 units of Humalog with meals +scale/additional insulin as needed -she notices higher BG mid morning and around lunch time Medications: Current Outpatient Medications Medication Sig Blood-Glucose Meter (BLOOD GLUCOSE MONITORING) monitoring kit Use as instructed. blood sugar diagnostic (BLOOD GLUCOSE TEST) test strip Use with blood glucose test four times a day. Lancets Use with blood glucose test four times a day. insulin NPH (HUMULIN N NPH INSULIN KWIKPEN) 100 unit/mL (3 mL) injection pen 58 units at bedtime dextrose (GLUCOSE) 2 gram chew Use as directed if low BG insulin lispro (HUMALOG KWIKPEN INSULIN) 100 unit/mL 18 units prior to each meal + scale (upto 100 units/day) aspirin, enteric coated (ECOTRIN LOW STRENGTH) 81 mg EC tablet Take 1 tablet by mouth once daily. busPIRone (BUSPAR) 15 mg tablet clobetasol (TEMOVATE) 0.05 % cream PLEASE SEE ATTACHED FOR DETAILED DIRECTIONS albuterol HFA (PROVENTIL HFA, VENTOLIN HFA) 90 mcg/actuation inhaler Inhale 2 Puffs as instructed every 6 hours as needed. VIT 10-IRON FUM-FOLIC ORAL Take by mouth. Insulin Friendship, Disposable, (BD ULTRAFINE III MINI PEN) 31 gauge x 3/16 4 times/day Blood-Glucose Sensor (FREESTYLE ZOLTAN 3 PLUS SENSOR) candice Use as instructed. Change sensors every 14 days FLUoxetine (PROZAC) 40 mg capsule Take 40 mg by mouth. albuterol HFA (PROVENTIL HFA, VENTOLIN HFA) 90 mcg/actuation inhaler Inhale 2 Puffs as instructed. No current facility-administered medications for this visit. Labs: Lab Results Component Value Date HBA1C 10.5 05/03/2024 HBA1C 6.6 12/16/2016 No results found for: CHOL, HDL, LDL, TG Glucose (mg/dL) Date Value 05/07/2024 216 Potassium (mmol/L) Date Value 05/07/2024 3.9 Sodium (mmol/L) Date Value 05/07/2024 133 Chloride (mmol/L) Date Value 05/07/2024 101 CO2 (mmol/L) Date Value 05/07/2024 23 Creatinine (mg/dL) Date Value 05/07/2024 0.43 BUN (mg/dL) Date Value 05/07/2024 7 Anion Gap (mmol/L) Date Value 05/07/2024 9 Calcium, Total (mg/dL) Date Value 05/07/2024 9.7 Protein, Total (g/dL) Date Value 05/07/2024 7.3 Albumin (g/dL) Date Value 05/07/2024 4.4 Bilirubin, Total (mg/dL) Date Value 05/07/2024 0.6 Alkaline Phosphatase (U/L) Date Value 05/07/2024 69 AST (U/L) Date Value 05/07/2024 10 ALT (U/L) Date Value 05/07/2024 16 ANTHROPOMETRICS Height: Last 1 Encounter Ht Readings: Date: Ht: 05/07/2024 158.5 cm (5' 2.4) Current weight: Last 3 Encounter Wt Readings: Date: Wt: 06/15/2024 80.8 kg (178 lb 3.2 oz) 05/26/2024 78.5 kg (173 lb) 05/07/2024 77.9 kg (171 lb 12.8 oz) 05/03/2024 77.9 kg (171 lb 11.8 oz) BMI: 32.17 Last Wt 06/15/24 : 80.8 kg (178 lb 3.2 oz) Pre- weight: 191 lbs Pre- BMI: 34.9 TW lbs [place] [facility] Weight Gain Recommendations for : Pre- BMI Total Weight Gain During [place] <18.5 (Underweight) 28-40 lbs ---- Discuss with OB and/or Dietitian 18.5-24.9 (Normal weight) 25-35 lbs 37-54 lbs 25-29.9 (Overweight) 15-25 lbs 31-50 lbs >30 (Obese) 11-20 lbs 25-42 lbs READINESS TO LEARN Cognitive ability: Alert and oriented Motivation to learn: Interested Family support: Unable to assess - Family not present Instruction provided to: Patient Patient learns best by: Individual Instruction Written Instruction - Hand-outs Verbal Instruction Factors affecting learning: None Physical limitations affecting learning: None Stage of Change: Contemplation Nutrition Diagnosis: Altered nutrition related laboratory values related to endocrine dysfunction Type 2 Diabetes Mellitus during as evidence by elevated HBA1C or altered blood glucose levels. Calories Needed for Current Weight: Resting Metabolic Rate: 1470 women need typically ~300 additional calories per day during the second and third trimester. Nutrition Intervention: Discussed BG targets for : Fasting 60-90 1 hour post meals <140 2 hours post meals <120 Stressed risks to fetus and mother with maternal elevated BGs during 1st, 2nd, and 3rd trimesters. Discussed changing insulin needs due to insulin resistance during . Discussed DM/ meal planning including impact of carbs on BG, foods containing carbs, reading food labels, importance of a balanced diet, portion sizes and associated carb grams, and carb content in restaurant foods. Discussed the importance of pairing protein with all meals and snacks. Recommended the following: At least 175 grams of carbohydrates per day. During , women generally need to consume: - 15 to 30 grams of carbohydrates for breakfast - 45 to 60 grams for lunch - 45 to 60 grams for dinner - 15 to 30 grams per snack I educated the pt on the importance of eating enough carbohydrates. Without proper carbohydrate intake, the body will draw on stored fat for energy. Fat that is turned into energy is known as ketones. Ketones cross the placenta and can cause harm to the baby Other Diabetes Topics Discussed: -Diabetes Basics: symptoms of diabetes -Medications: reviewed home DM meds -Problem Solving: hypoglycemia s/sx/tx, pattern management, and traveling with diabetes -Reducing Risks: risks to mom and baby with elevated blood sugars during Education Materials: Healthy You: Diabetes and Nutrition Monitoring & Evaluation: Dietitian Goals: Have BG levels within target ranges Follow consistent carb meal plan as discussed Criteria: Blood Glucose Values Diet recall Patient Stated Goals at today's visit: Improved BG, have BG within target ranges Adherence Potential to Goals: Good Need for Follow up: f/u with RD on 11/04/24 Referred by: Dr. Guillermo Consult Billing Type/Increments: Initial Assessment/15 minutes, 4 increment(s), 60 minutes Start time: 10:00 AM End time: 10:57 AM My final report will be communicated back to the requesting physician by way of shared medical record. Signed by: Carrie Larsen M.S., MEHNAZ, LD documented in this encounterParkview Health [facility]01-08-2025 [facility] History of Present illness Narrative* Pooja Latham MD - 06/15/2024 1:37 PM EST Images from the original note were not included. [employer] OUTPATIENT VISIT DATE June 15, 2024 OUTPATIENT VISIT TYPE CONSULT REFERRING PROVIDER: Zayda Parker APRN.[employer] Recommendations from today's consultation will be conveyed through the electronic medical record. History of Present Illness: 29 year old at 13w3d with Estimated Date of Delivery: 12/18/24 presenting for consultation with Maternal- Medicine at the [facility] in the setting of sub-optimally controlled T2DM complicating . Her previous was complicated by sub-optimal control of T2DM, as well as macrosomia, polyhydramnios, and preeclampsia without severe features. She denies history of chronic hypertension. She went into labor in her 37th week and had of 10lb 2.2oz daughter by . She does not have custody of her first child however reports she is affected by autism spectrum condition and ADHD. She was diagnosed with Type 2 Diabetes around age 12-14. She is followed by [facility] Dr. Guillermo. She was last seen in 06/07/24. Her last HbA1c was 7.9% (POC), down from first trimester 10.5%. She denies nephropathy, retinopathy (saw ophthalmology in February), gastroparesis. She does have peripheral neuropathy, reports this runs in her family. She currently manages her diabetes with insulin NPH 48u nightly Humalog with 5 additional units for higher carb meals Her relevant histories have been updated and are reviewed below: Obstetric History: # 1 - Date: 01/20/17, Sex: Female, Weight: 10 lb 2.2 oz (4.598 kg), GA: 37w4d, Type: Vaginal, Spontaneous, Apgar1: None, Apgar5: None, Living: Living, Comments: mild atony and hemorrhage, mild preeclampsia, EBL 600cc, lives with grandparents # 2 - Date: 02/2018, Sex: None, Weight: None, GA: 6w3d, Type: MISSED AB, Apgar1: None, Apgar5: None, Living: None, Comments: D&C, Pt states she was told it was a twin # 3 - Date: None, Sex: None, Weight: None, GA: None, Type: None, Apgar1: None, Apgar5: None, Living: None, Comments: None Past Medical History: PAST MEDICAL HISTORY Diagnosis Date Asthma Bipolar H/O macrosomia in infant in prior , currently 05/07/2024 Herpes simplex type 2 (HSV-2) infection affecting , antepartum, unspecified trimester 04/19/2024 Hyperlipidemia LGA (large for gestational age) 12/23/2016 12/23/16 - >95% Polyhydramnios 01/01/2017 Pre-existing type 2 diabetes mellitus in in first trimester 06/15/2024 First trimester Hgb A1c 10.5%, now follows with Dr. Guillermo Recurrent UTI Type 2 diabetes mellitus (HCC) Past Surgical History: PAST SURGICAL HISTORY Procedure Laterality Date CHOLECYSTECTOMY D&C, DIAG AND/OR THERAPEUTIC 2017 Medications: Current Outpatient Medications on File Prior to Visit Medication Sig Blood-Glucose Meter (BLOOD GLUCOSE MONITORING) monitoring kit Use as instructed. blood sugar diagnostic (BLOOD GLUCOSE TEST) test strip Use with blood glucose test four times a day. Lancets Use with blood glucose test four times a day. insulin NPH (HUMULIN N NPH INSULIN KWIKPEN) 100 unit/mL (3 mL) injection pen 58 units at bedtime dextrose (GLUCOSE) 2 gram chew Use as directed if low BG insulin lispro (HUMALOG KWIKPEN INSULIN) 100 unit/mL 18 units prior to each meal + scale (upto 100 units/day) aspirin, enteric coated (ECOTRIN LOW STRENGTH) 81 mg EC tablet Take 1 tablet by mouth once daily. busPIRone (BUSPAR) 15 mg tablet clobetasol (TEMOVATE) 0.05 % cream PLEASE SEE ATTACHED FOR DETAILED DIRECTIONS albuterol HFA (PROVENTIL HFA, VENTOLIN HFA) 90 mcg/actuation inhaler Inhale 2 Puffs as instructed every 6 hours as needed. VIT 10-IRON FUM-FOLIC ORAL Take by mouth. Insulin Friendship, Disposable, (BD ULTRAFINE III MINI PEN) 31 gauge x 3/16 4 times/day Blood-Glucose Sensor (FREESTYLE ZOLTAN 3 PLUS SENSOR) candice Use as instructed. Change sensors every 14 days FLUoxetine (PROZAC) 40 mg capsule Take 40 mg by mouth. albuterol HFA (PROVENTIL HFA, VENTOLIN HFA) 90 mcg/actuation inhaler Inhale 2 Puffs as instructed. Allergies: ALLERGIES Allergen Reactions Aluminum-Magnesium * GI Upset Aripiprazole Mental Status Change Suicidal ideations Quetiapine Other: See Comments, Shortness of Breath SOB AND HEART RACING SOB AND HEART RACING Metoclopramide Vomiting, Hives, Unknown Promethazine GI Upset Zofran [Ondansetron] Vomiting Zoloft [Sertraline] Mental Status Change Suicidal ideations Social History: Social History Tobacco Use Smoking status: Every Day Current packs/day: 0.50 Average packs/day: 0.5 packs/day for 14.0 years (7.0 ttl pk-yrs) Types: Cigarettes Smokeless tobacco: Never Vaping Use Vaping status: Never Used Substance Use Topics Alcohol use: No Drug use: No Family History: FAMILY HISTORY Problem Relation Age of Onset Hyperlipidemia Mother Diabetes Mother Hypertension Mother other (neuropathy) Mother Diabetes Father Heart Father Hypertension Father Hyperlipidemia Father Thyroid Sister Multiple Sclerosis Sister Depression Sister Anxiety disorder Sister other (carpal tunnel) Sister Hyperlipidemia Brother No Known Problems Brother Heart Maternal Grandmother Diabetes Maternal Grandfather Obesity Maternal Grandfather Diabetes Paternal Grandmother Heart Attack Paternal Grandmother Cancer Paternal Grandfather Review of Systems: Negative other than as noted above. Physical Exam: BP 100/58 Wt 178 lb 3.2 oz (80.8 kg) LMP 03/13/2024 (Exact Date) BMI 32.17 kg/m Gen: Well-appearing, no acute distress CV/Resp: Non-labored breathing on room air Abd: Gravid, non-tender during US exam Ext: Moving spontaneously, no significant edema b/l US today shows: - Single, live, intrauterine . - [place] rump length measurement is consistent with the established gestational age. - A qualitative screen of the nuchal translucency and other anatomic structures was unremarkable caroline incomplete first trimester anatomic assessment. - Not all structural malformations can be detected by ultrasound examination. Maternal Structures: Right Ovary: Size 27 mm x 25 mm x 28 mm Left Ovary: Size 27 mm x 26 mm x 21 mm Urine protein/creatinine: 0.09 Latest Ref Rng & Units 11/21/2016 05/07/2024 CMP Sodium 136 - 144 mmol/L 133 Potassium 3.7 - 5.1 mmol/L 3.9 Chloride 98 - 107 mmol/L 101 CO2 22 - 30 mmol/L 23 Glucose 74 - 99 mg/dL 216 BUN 7 - 21 mg/dL 7 Creatinine 0.58 - 0.96 mg/dL 0.43 Creatinine Serum - Intl 0.4 mg/dl EGFR >=60 mL/min/1.73m 135 Protein, Total 6.3 - 8.0 g/dL 7.3 Albumin 3.9 - 4.9 g/dL 4.4 Calcium 8.5 - 10.2 mg/dL 9.7 Bilirubin, Total 0.2 - 1.3 mg/dL 0.6 AST 13 - 35 U/L 10 ALT 7 - 38 U/L 16 Alkaline Phosphatase 34 - 123 U/L 69 This result is from an external source. Latest Ref Rng & Units 07/02/2016 11/14/2016 05/07/2024 CBC WBC 3.70 - 11.00 k/uL 6.07 RBC 3.90 - 5.20 m/uL 5.15 Hemoglobin 11.5 - 15.5 g/dL 13.8 11.70 14.8 Hematocrit 36.0 - 46.0 % 38.6 33.70 42.1 MCV 80.0 - 100.0 fL 81.7 MCH 26.0 - 34.0 pg 28.7 MCHC 30.5 - 36.0 g/dL 35.2 RDW-CV 11.5 - 15.0 % 12.2 Platelet Count 150 - 400 k/uL 231 301 MPV 9.0 - 12.7 fL 9.6 Baso% % 0.7 Abs Neut (ANC) 1.45 - 7.50 k/uL 2.68 Abs Lymph 1.00 - 4.00 k/uL 2.83 Abs Juncos <0.87 k/uL 0.37 Abs Eosin <0.46 k/uL 0.14 Abs Baso <0.11 k/uL 0.04 NRBC /100 WBC 0.0 This result is from an external source. Assessment and Plan: 29 year old at 13w3d presenting for MFM consultation due to sub-optimal control of T2DM in . We discussed that preconceptual/first trimester A1c is closely related to miscarriage risk as well as congenital malformation risk, most specifically of the central nervous and cardiovascular systems. She was counseled that the [place] [employer] recommends an A1c of less than 7 mg/dL prior to conception to minimize risk of defects to the general population risk (3- 5%). The higher the A1c, the greater the risk of defect, which can reach as high as 25% with an A1c of 10 mg/dL or greater as was the case for Hoda. We discussed early anatomy at 16 weeks, detailed anatomy at20 weeks, and echocardiogram around 24 weeks. We will also perform monthly growth ultrasounds and testing after 32 weeks. Risks of the diabetic include (but are not limited to) growth disturbance (most commonly, large babies), increased risk of preeclampsia (especially with a diagnosis of preexisting hypertension or nephropathy), possible delivery for macrosomia, in addition to the possibilityof intrauterine demise (this risk is decreased significantly, but not completely, with optimal glucose control and compliance with testing). Risks to the patient's include (not limited to) possible intensive care unit stay, hypoglycemia, jaundice, metabolic abnormalities and respiratory complications, all less likely with optimal glucose control and delivery at term gestation. Delivery between 37-39 weeks is recommended, unless complications arise or glucoses very difficult to control in the late period. We discussed that she should continue low dose aspirin and prioritize optimal health and glucose control as she is at very high risk for hypertensive disorders of and preeclampsia. She will work with her partner to firmly adhere to recommended insulinregimen, and meets with diabetes education virtually later this week. Summary of Recommendations: Problem List Items Addressed This Visit Endocrinology Pre-existing type 2 diabetes mellitus in in first trimester Overview Diagnosed age 12 First tri Hgb A1c 10.5% Established with Dr. 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 Please do not hesitate to contact our office with any questions or concerns. Consultation requested by Zayda Parker NP for an opinion regarding sub-optimally controlled T2DM in . My final recommendations will be communicated back to the requesting physician by way of shared Medical record or letter to requesting physician via US mail. I spent a total of 55 minutes on the date of the service which included preparing to see the patient, [id number] patient care, completing clinical documentation, counseling and educating the patient/family/caregiver, and communicating results to the patient/family/caregiver. Pooja Latham MD June 15, 2024 3:33 PM documented in this encounterPark[facility] Telephone encounter Note * Telephone Encounter - Kelsy Guillermo DO - 06/14/2024 4:56 PM EST Rx sent KB [facility]01-06-[facility] Miscellaneous Notes* Telephone Encounter - Kelsy Guillermo DO - 06/14/2024 4:56 PM EST Rx sent KB documented in this encounterPark[facility]01-[facility]-2025 Telephone encounter Note * Telephone Encounter - Kelsy Guillermo DO - 06/11/2024 5:18 PM EST Reviewed BG data- responded as follows: Good afternoon- I reviewed your BG /CGM data- your sensor average BG is 127 mg/dL. Still a bit highovernight/in AM- lets increase NPH a bit more to 58 units at bedtime Continue Humalog 18 units prior to each meal + 5 units with Higher carb meals. Camilo with * if/when you take the extra insulin. Will review again next week- thanks! KB [facility]01-03-2025 Miscellaneous Notes* Telephone Encounter - Kelsy Guillermo DO - 06/11/2024 5:18 PM EST Reviewed BG data- responded as follows: Good afternoon- I reviewed your BG /CGM data- your sensor average BG is 127 mg/dL. Still a bit highovernight/in AM- lets increase NPH a bit more to 58 units at bedtime Continue Humalog 18 units prior to each meal + 5 units with Higher carb meals. Camilo with * if/when you take the extra insulin. Will review again next week- thanks! NILES documented in this encounterPark[facility]12-30-2024 Instructions* Patient Instructions* Kelsy Guillermo DO - 06/07/2024 2:33 PM EST 1) check your sugars fasting (60-90 mg/dL) and 2 hours post meal (less than 120 mg/dL) 2) forward me your blood glucose data weekly ([email or web address])- we will get you CGM (sensor)- you should write your numbers down fasting, and 2 hour post meal- and send me these data each friday. 3) increase NPH to 53 units at bedtime Continue Humalog 18 units prior to each meal + 5 units with Higher carb meals. Camilo with * if/when you take the extra insulin 4) take 1/2 of the Humalog if you don't feel like you're going to eat enough or eat a lower carb meal. Camilo with 0 if you take less insulin 5) see me in 8 weeks for f/u. documented in this encounterPark[facility]12-30-2024 History of Present illness Narrative* Kelsy Guillermo DO - 06/07/2024 2:20 PM EST Reason for consultation: f/u - type 2 diabetes antepartum. Referring Physician:Dr Piper Julian MD My final recommendations will be communicated back to the requesting physician by way of shared Medical record or letter via US mail. HISTORY OF PRESENT ILLNESS; Ms. Byrne is a 29 year old F presenting at 12 weeks gestation for f/u regarding type 2 diabetes antepartum. Her initial visit with me was 05/03. Pt has 7 year old daughter- had DM during thatpregnancy- had macrosomia, delivered in [place]. She was initially diagnosed with type 2 diabetes at age 14. She does not have retinopathy- saw ophthalmology in February. Does have peripheral neuropathy- states both parents have this as well. She has strong family hx of DM including mother, father, grandparents. She started taking insulin in 2022- however states she has bipolar disorder and discontinues medications during these episodes. Was on the following regimen at her first visit: Lantus 10 units at bedtime Humalog 4 units prior to meals Was switched to NPH + Humalog at her initial visit. She has been forwarding me her BG data weekly, which has been reviewed in conjunction with her CGM data. Last forwarded me her data on 06/05- her current regimen is as follows: NPH 48 units at bedtime Humalog 18 units prior to each meal + 5 units with Higher carb meals. This continuous glucose monitoring (sensor) data can be found in the procedure note CGM Report Interpretation: 1. Nocturnal glucose control: Uncontrolled glucose NOT previously detected: Yes If yes: Hyperglycemia detected Notes: still some elevated BG overnight. 2. Post prandial glucose excursions: Uncontrolled glucose NOT previously detected: No If yes: Not applicable Notes: post prandial control is MUCH improved in comparison to previous values. 3. Hypoglycemia incidence: Uncontrolled glucose NOT previously detected: Yes Notes: present at times- in particular if 4. Other (e.g., exercise/activity): n/a Her prepregnancy weight was 191 lbs and her current weight is 175 lbs. Hypoglycemia frequency: infrequent but present at times. Hypoglycemia awareness: Yes Hyperglycemia Symptoms: denies blurry vision reports polyuria denies polydipsia reports nocturia denies rapid weight loss Last visit with OB was 05/26. ++ morning sickness - manageable but still an issue. Has f/u with MFMnext week. But otherwise no complaints/concerns at this time. PAST MEDICAL HISTORY Diagnosis Date Asthma Bipolar Gestational diabetes 12/20/2016 Gestational proteinuria, third trimester 12/20/2016 H/O macrosomia in infant in prior , currently 05/07/2024 Herpes simplex type 2 (HSV-2) infection affecting , antepartum, unspecified trimester 04/19/2024 Hyperlipidemia LGA (large for gestational age) 12/23/2016 12/23/16 - >95% Polyhydramnios 01/01/2017 Pre-existing type 2 diabetes mellitus in in third trimester 12/12/2016 12/23/16 - admitted to [place] for glucoregulation, likely will need delivery at 37 weeks - KJ 12/12/2016 She is a Type 2 diabetic and started Insulin during the .Last HGB A1c 6.9 on 11/14/2016.She sees an pediatric physician, Dr Asif. Her records have been faxed here during the visit and are sent to [address] Gramajo review. TKRN January 14, 2017 EFW is approx 95%. Monitor closely, cons with care elsewhere, antepartum 12/12/2016 12/12/2016Patient is transferring care from [facility]. She states she has moved from [place] to [place] and wishes to be seen here.There is some notations by her previous doctor ofnon-compliance issues with keeping appointments and diabetic diet/Insulin dosages. She states she was seen at [facility] 11/18 for decreased movement and then again about the 3rd we Recurrent UTI Type 2 diabetes mellitus (HCC) PAST SURGICAL HISTORY Procedure Laterality Date CHOLECYSTECTOMY D&C, DIAG AND/OR THERAPEUTIC 2017 FAMILY HISTORY Problem Relation Age of Onset Hyperlipidemia Mother Diabetes Mother Hypertension Mother other (neuropathy) Mother Diabetes Father Heart Father Hypertension Father Hyperlipidemia Father Thyroid Sister Multiple Sclerosis Sister Depression Sister Anxiety disorder Sister other (carpal tunnel) Sister Hyperlipidemia Brother No Known Problems Brother Heart Maternal Grandmother Diabetes Maternal Grandfather Obesity Maternal Grandfather Diabetes Paternal Grandmother Heart Attack Paternal Grandmother Cancer Paternal Grandfather Social History Tobacco Use Smoking status: Every Day Current packs/day: 0.50 Average packs/day: 0.5 packs/day for 14.0 years (7.0 ttl pk-yrs) Types: Cigarettes Smokeless tobacco: Never Vaping Use Vaping status: Never Used Substance Use Topics Alcohol use: No Drug use: No Current Outpatient Medications Medication Sig Dispense Refill insulin lispro (HUMALOG KWIKPEN INSULIN) 100 unit/mL 18 units prior to each meal + scale 5 Each 11 insulin NPH (HUMULIN N NPH INSULIN KWIKPEN) 100 unit/mL (3 mL) injection pen 48 units at bedtime 5 Each 11 insulin lispro (HUMALOG KWIKPEN) 100 unit/mL 15 units prior to meals. 15 mL 5 doxylamine-pyridoxine, vit B6, (DICLEGIS) 10-10 mg TbEC Take 2 tabs at night. If symptoms persist after 2 days add one tab in the morning. If symptoms still persist after 4 days add a tab mid-day 100tablet 3 aspirin, enteric coated (ECOTRIN LOW STRENGTH) 81 mg EC tablet Take 1 tablet by mouth once daily. 90 tablet 3 busPIRone (BUSPAR) 15 mg tablet clobetasol (TEMOVATE) 0.05 % cream PLEASE SEE ATTACHED FOR DETAILED DIRECTIONS albuterol HFA (PROVENTIL HFA, VENTOLIN HFA) 90 mcg/actuation inhaler Inhale 2 Puffs as instructed every 6 hours as needed. VIT 10-IRON FUM-FOLIC ORAL Take by mouth. Insulin Friendship, Disposable, (BD ULTRAFINE III MINI PEN) 31 gauge x 3/16 4 times/day 150 Each 5 Blood-Glucose Sensor (FREESTYLE ZOLTAN 3 PLUS SENSOR) candice Use as instructed. Change sensors every 14 days 2 Each 5 FLUoxetine (PROZAC) 40 mg capsule Take 40 mg by mouth. albuterol HFA (PROVENTIL HFA, VENTOLIN HFA) 90 mcg/actuation inhaler Inhale 2 Puffs as instructed. No current facility-administered medications for this visit. Allergies As of Date: 06/07/2024 Allergen Noted Reaction ALUMINUM-MAGNESIUM HYDROXIDE 02/05/2018 GI Upset ARIPIPRAZOLE 12/13/2022 Mental Status Change QUETIAPINE 10/04/2018 Other: See Comments and Shortness of Breath METOCLOPRAMIDE 02/10/2019 Vomiting, Hives, and Unknown PROMETHAZINE 07/11/2023 GI Upset ZOFRAN [ONDANSETRON] 07/11/2023 Vomiting ZOLOFT [SERTRALINE] 07/11/2023 Mental Status Change Fully Assessed 05/26/2024 REVIEW OF SYSTEMS: General: no fever and no chills- has lost weight in the Skin: no rashes, pruritis or dry skin Eyes: no blurred or double vision or eye pain Cardiac: denies chest pain, heart palpitations or orthopnea Pulmonary: denies wheezing, productive cough or exertional dyspnea GI: nausea and vomiting Musc: denies history of upper or lower extremity weakness Reproductive: gravid at 12+ weeks gestation, menses reqular prior to the . Endocrine: complains of polyuria and nocturia Hematology: Negative for anemia, easy bleeding and bruising. PHYSICAL EXAM: BP 104/64 Pulse 85 Wt 79.6 kg (175 lb 7.8 oz) LMP 03/13/2024 (Exact Date) BMI 31.68 kg/m GENERAL: Alert, no distress, cooperative SKIN: Skin color, texture, turgor normal. No rashes or lesions. HEAD/SINUSES: No significant findings EYES: sclera non-icteric, EOMs intact. ABDOMEN: gravid at 12+ weeks EXTREMITIES: Normal exam of the extremities NEURO: AAO x 3, no focal deficits. The remainder of the physical exam is noncontributory. DATA: Hemoglobin A1C (%) Date Value 12/16/2016 6.6 Hemoglobin A1C (POCT) (%) Date Value 05/03/2024 10.5 POC HbA1c today improved to 7.9%. IMPRESSION: Ms. Kaur is a 29 year old female at 12+ weeks gestation here for evaluation of gestational diabetes. RECOMMENDATIONS: 1. The patient was counseled regarding the maternal and risks of hyperglycemia during . risks include, but are not limited to: congenital abnormalities, hypoxia and stillbirth, macrosomia, shoulder dystocia and hypoglycemia. Maternal risks include increased risks of pre-eclampsia and delivery. I discussed in detail with her that her risk of significant adverse outcome is high- 15-20% given her HbA1c over 10% and that it is extremely important thatwe normalize her BG RAJNI. She understands this and will work at it. 2. I recommend the patient check her blood glucose fasting and 2 hour after each meal, we have provided her with a glucometer if she does not have one. The following blood glucose targets were discussed: fasting blood glucose concentration between 60-90 mg/dL, and 2 hour postprandial blood glucose c oncentration of less than 120 mg/dL. She was encouraged to limit carbohydrate intake, to walk aftermeals, (if not contraindicated) and will be scheduled with our dietitian, (if not done already). Regarding her blood glucose management, I recommend she do the followin) check your sugars fasting (60-90 mg/dL) and 2 hours post meal (less than 120 mg/dL) 2) forward me your blood glucose data weekly ([email or web address])- we will get you CGM (sensor)- you should write your numbers down fasting, and 2 hour post meal- and send me these data each friday. 3) increase NPH to 53 units at bedtime Continue Humalog 18 units prior to each meal + 5 units with Higher carb meals. Camilo with * if/when you take the extra insulin 4) take 1/2 of the Humalog if you don't feel like you're going to eat enough or eat a lower carb meal. Camilo with 0 if you take less insulin 5) see me in 8 weeks for f/u. 3. ophthalmology-: she has seen ophthalmology within the last two months and does not have diabeticretinopathy. I spent a total of 30 minutes on the date of the service which included preparing to see the patient, [id number] patient care, completing clinical documentation, obtaining and/or reviewing separately obtained history, performing a medically appropriate examination, counseling and educating the pat ient/family/caregiver, and ordering medications, tests, or procedures. Kelsy Guillermo DO documented in this encounterPark[facility]12-30-[facility] Note[facility]24 NoteHNO ID: [id number] Author: FAINA LEVIN MA Service: ? Author Type: Motor Operator Type: Procedures Filed: 06/07/2024 15:02 Note Text:[facility]12-30-2024 Procedure note* Faina Levin MA - 06/07/2024 2:14 PM ESTProcedure(s): EXTERNAL EQUITY RESEARCH ASSOCIATE, CGM SYS Images from the original note were not included. [facility]12-30-[facility] Procedure note* Faina Levin MA - 06/07/2024 2:14 PM ESTProcedure(s): EXTERNAL EQUITY RESEARCH ASSOCIATE, CGM SYS Images from the original note were not included. documented in this encounterParkview Health [facility]12-28-2024 Telephone encounter Note * Telephone Encounter - Kelsy Guillermo DO - 06/05/2024 11:07 AM EST Reviewed BG data- responded as follows: Good morning- I reviewed your BG data- your sensor average BG continues to improve and is now 136 mg/dL. This is A LOT better than where you started- keep up the good work. I would recommend that youadjust insulin again as follows: increase NPH to 48 units at bedtime increase Humalog to 18 units prior to each meal (+ additional 5 units of Humalog with any higher carb meals) Camilo with * if/when you take it so I can see if it is working or not. Let me know how things are going next week- thanks! Dr Guillermo [facility]12-28-2024 Miscellaneous Notes* Telephone Encounter - Kelsy Guillermo DO - 06/05/2024 11:07 AM EST Reviewed BG data- responded as follows: Good morning- I reviewed your BG data- your sensor average BG continues to improve and is now 136 mg/dL. This is A LOT better than where you started- keep up the good work. I would recommend that youadjust insulin again as follows: increase NPH to 48 units at bedtime increase Humalog to 18 units prior to each meal (+ additional 5 units of Humalog with any higher carb meals) Camilo with * if/when you take it so I can see if it is working or not. Let me know how things are going next week- thanks! Dr Giullermo documented in this encounterParkview Health [facility]12-24-2024 Telephone encounter Note * Telephone Encounter - Kelsy Guillermo DO - 06/01/2024 2:56 PM EST Reviewed BG data- responded as follows: Good afternoon- I reviewed your BG data/ CGM data- your sensor average BG is 155 mg/dL (definitely improving). Overall, you are doing better. I would recommend that you adjust insulin as follows: increase NPH to 40 units at bedtime continue Humalog 15 units prior to each meal. I would recommend that you take an additional 5 unitsof Humalog with any higher carb meals (means if you eat something that you think will increase your blood sugar- take the extra insulin with that meal). Camilo with * if/when you take it so I can seeif it is working or not. Let me know how things are going next week- thanks! Dr Guillermo [facility]12-24-2024 Miscellaneous Notes* Telephone Encounter - Kelsy Guillermo DO - 06/01/2024 2:56 PM EST Reviewed BG data- responded as follows: Good afternoon- I reviewed your BG data/ CGM data- your sensor average BG is 155 mg/dL (definitely improving). Overall, you are doing better. I would recommend that you adjust insulin as follows: increase NPH to 40 units at bedtime continue Humalog 15 units prior to each meal. I would recommend that you take an additional 5 unitsof Humalog with any higher carb meals (means if you eat something that you think will increase your blood sugar- take the extra insulin with that meal). Camilo with * if/when you take it so I can seeif it is working or not. Let me know how things are going next week- thanks! Dr Guillermo documented [facility] Telephone encounter Note * Telephone Encounter - Amelia Rose RN - 05/26/2024 2:28 PM EST A PA for Humalog submitted and was approved. Spoke to patient and advised. She can use the voucher as well. [facility]12-18-2024 Miscellaneous Notes* Telephone Encounter - Amelia Rose RN - 05/26/2024 2:28 PM EST A PA for Humalog submitted and was approved. Spoke to patient and advised. She can use the voucher as well. * Telephone Encounter - Demetra Morris - 05/26/2024 1:15 PM EST Patient called and states she only hs 2 pens left from 05/04/2024 refill. This PSS spoke to pharmacy and insurance will not cover until July even with the dose increase. Please review and advise what patient should do. She states she has used 3 pens since 05/04/2024. She keeps stating a PA is needed but pharmacy did not mention that a PA was needed. Patient states she still has 2 vouchers and is asking if one of these can be used to get her Humalog. Please review and advise. documented in this encounterPark[facility] Telephone encounter Note * Telephone Encounter - Demetra Morris - 05/26/2024 1:15 PM EST Patient called and states she only hs 2 pens left from 05/04/2024 refill. This PSS spoke to pharmacy and insurance will not cover until July even with the dose increase. Please review and advise what patient should do. She states she has used 3 pens since 05/04/2024. She keeps stating a PA is needed but pharmacy did not mention that a PA was needed. Patient states she still has 2 vouchers and is asking if one of these can be used to get her Humalog. Please review and advise. [facility]12-18-2024 Progress note* Quick Notes - Krys Kulkarni MD - 05/26/2024 11:42 AM EST S: Melissa Byrne is a 29 year old female who presents at 12/18/2024, by Last Menstrual Period for a routine visit. Denies headache, visual changes, chest pain, shortness of breath, vaginal bleeding, leakage of fluid, or dysuria. Feeling well, no complaints. O: See flow sheet Gen: No apparent distress Has been adjusting insulin q Friday with endocrine. Fasting BG still elevated in 150 range. Does have episodes of rapidly falling BG. MFM consult scheduled with NT Records from previous MFM consult reviewed. No additions info.Previous abnormal quad screen Genetic testing on patient and first child per genetic counseling but results no included. Per EPIC. 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 10 weeks gestation of - ICD9: V22.2, ICD10: Z3A.10 (primary diagnosis) - URINE OB DIP B/O 2. Encounter for supervision of high risk in first trimester, antepartum - ICD9: V23.9, ICD10: O09.91 - URINE OB DIP B/O 3. Pre-existing type 2 diabetes mellitus in in first trimester - ICD9: 648.03, 250.00, ICD10: O24.111 Following with endocrine Q 4 week growth after anatomy NST/BPP after 32 weeks - URINE OB DIP B/O 4. Obesity affecting in first trimester, unspecified obesity type - ICD9: 649.13, ICD10: O99.211 NSTS and growth as planned for DM - URINE OB DIP B/O 5. 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 No results found Krys Kulkarni MD [facility]12-18-2024 Miscellaneous Notes* Quick Notes - Krys Kulkarni MD - 05/26/2024 11:42 AM EST S: Melissa Byrne is a 29 year old female who presents at 12/18/2024, by Last Menstrual Period for a routine visit. Denies headache, visual changes, chest pain, shortness of breath, vaginal bleeding, leakage of fluid, or dysuria. Feeling well, no complaints. O: See flow sheet Gen: No apparent distress Has been adjusting insulin q Friday with endocrine. Fasting BG still elevated in 150 range. Does have episodes of rapidly falling BG. MFM consult scheduled with NT Records from previous MFM consult reviewed. No additions info.Previous abnormal quad screen Genetic testing on patient and first child per genetic counseling but results no included. Per EPIC. 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 10 weeks gestation of - ICD9: V22.2, ICD10: Z3A.10 (primary diagnosis) - URINE OB DIP B/O 2. Encounter for supervision of high risk in first trimester, antepartum - ICD9: V23.9, ICD10: O09.91 - URINE OB DIP B/O 3. Pre-existing type 2 diabetes mellitus in in first trimester - ICD9: 648.03, 250.00, ICD10: O24.111 Following with endocrine Q 4 week growth after anatomy NST/BPP after 32 weeks - URINE OB DIP B/O 4. Obesity affecting in first trimester, unspecified obesity type - ICD9: 649.13, ICD10: O99.211 NSTS and growth as planned for DM - URINE OB DIP B/O 5. 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 No results found Krys Kulkarni MD documented in this encounterPark[facility]12[facility] Instructions* Patient Instructions* Gino Wood MA - 05/26/2024 9:50 AM EST SEQUENTIAL SCREENINGS The [facility] offers sequential screenings for women who are interested in screenings for chromosomal abnormalities and certain defects during a . The sequential screen combinesultrasound and blood tests to determine the risk of chromosomal abnormalities, including Down's Syndrome (Trisomy 21) and Trisomy 18, as well as open neural tube defects including spina bifida. Ultrasound examination is performed between 11 weeks and 13 weeks gestational age. Blood tests are drawn after the ultrasound and again later in the between 15 and 21 weeks gestational age. Please let your physician know if you are interested in this testing. It will require an appointment withour firestopper technician. This is not an ultrasound performed by a physician in our office during a routine visit. SIGNS AND SYMPTOMS OF LABOR 1. Contractions every 10 minutes or more often 2. Clear, pink, or brownish fluid (water) leaking from vagina 3. Feeling that baby is pushing down, pressure 4. Low, dull backache 5. Cramps that feel like a period 6. Cramps with or without diarrhea If you notice any of the above symptoms, contact our office at [phone] and ask to speak with anurse. After hours, you can call doctors registry at [phone] OR call [facility] at [phone] ask to have the doctor marketing professional paged. If you consider this an emergency, dial 9- or go to your nearest emergency department. NEED HELP? Are you dealing with a violent or abusive relationship? Are you a victim of rape or sexual assult? Call [facility] ([place]) 24 hour Crisis Hotline: 379.295.8450 or 507-463-7512. MANUAL Your Guide to a Healthy manual is now on-line. Visit [email or web address] to download your free copy documented in this encounterParkview [facility]12-[facility]-2024 Telephone encounter Note * Telephone Encounter - Charlette Starkey RN - 05/25/2024 10:15 AM EST Spoke to patient. She has not vomited since last week. Feeling slightly better and hasn't had that many low blood sugars since calling last week. Appetite still minimal. She is trying to eat small frequent snacks. Aware PA will be submitted for diclegis. Scheduled appt for tomorrow with JRobyn. Charlette Starkey RN [facility]12-17-2024 Miscellaneous Notes* Telephone Encounter - Charlette Starkey RN - 05/25/2024 10:15 AM EST Spoke to patient. She has not vomited since last week. Feeling slightly better and hasn't had that many low blood sugars since calling last week. Appetite still minimal. She is trying to eat small frequent snacks. Aware PA will be submitted for diclegis. Scheduled appt for tomorrow with JG. Charlette Starkey RN * Telephone Encounter - Krys Murcia RN - 05/20/2024 10:00 AM EST Left message for patient to call office. Review below recommendations. RX for Diclegis was sent in today. Received message from pharmacy that this needs Prior Auth. Krys Murcia RN * Telephone Encounter - Piper Julian MD - 05/20/2024 9:05 AM EST Options for n/v in are vit b6/unisom, can send the rx for this. The other meds mentioned.Symptomatic measures like pepermint and natali. Steroids we use sometimes but that would be a terrible option for her if she is diabetic. Needs to eat small simple meals and monitor BS closely for lows. Probably work in for an OB visit and wt check in the next week. Other option [facility] and consider a pump if we get to there. . Piper Julian MD * Telephone Encounter - Charlette Starkey RN - 05/20/2024 8:41 AM EST 9w5d Calling c/o n/v and low blood sugars. She states she has been having low blood sugar at some point everyday or every other day. Has been as low as 60s-90s. She has been having n/v from though and not taking anything daily for it. States she takes her insulin then eats and ends up vomitingwithin an hour sometimes. She is aware of vitamin B6 and unisom recommendation from her NOB appt and has not picked any up yet. She stated she is allergic to Zofran, Reglan and Phenergan too. Advisedif she's taking insulin and then vomiting after eating that is likely why her sugars are dropping. She has been trying to push fluids with electrolytes. She sees Dr. Guillermo and has not been in contact regarding low blood sugars yet. Advised she needs to contact his office too. Please advise. Charlette Starkey RN documented in this encounterPark[facility]12-[facility]24 Hospital Discharge instructions* Discharge Instructions* Reza Dyer, - 05/21/2024 8:33 PM EST Call OB on Friday for follow-up appointment. * Attachments The following attachments cannot be sent through Care Everywhere. * The Second Month ([place]) documented in this [facility] Work Phone: 1(255) 385-533412-13-2024 Emergency department Note* Reza Dyer DO - 05/21/2024 6:55 PM EST HPI Chief Complaint Patient presents with Abdominal Pain C/o bilateral lower abd pain/ pelvic pain that radiates to flank sides that started yesterday. She is having morning sickness nausea, denies fever. She feels she is not peeing as much as she should. Denies constipation or diarrhea. Pt is 9 weeks Limitations to History: None HPI: 29-year-old G3, P1 at approximately 9 weeks presents with lower pelvic/abdominal pain. Presentover the past 1 day. Started initially on her left and now has moved to her right. Aching in nature. Admits to some morning sickness but no increase in her nausea. Denies any vomiting. Denies any dysuria or frequency. Denies any hematuria. Denies any loss of vaginal fluid. Denies any fall or trauma. Physical Exam: VS: As documented in the triage note and EMR flowsheet from this visit were reviewed. Appearance: Alert. cooperative, in no acute distress. Skin: Intact, dry skin, no lesions, rash, petechiae or purpura. HENT: Normocephalic, atraumatic. Nares patent. No intraoral lesions. Neck: Supple, without meningismus. Trachea at midline. No lymphadenopathy. Pulmonary: Clear bilaterally with good chest wall excursion. No rales, rhonchi or wheezing. No accessory muscle use or stridor. Cardiac: Regular rate and rhythm, no rubs, murmurs, or gallops. Abdomen: Abdomen is soft, nontender, and nondistended. No palpable organomegaly. No rebound or guarding. No CVA tenderness. Nonsurgical abdomen. Genitourinary: Exam deferred. Musculoskeletal: Full range of motion. Pulses full and equal. No cyanosis, clubbing, or edema. Psychiatric: Appropriate mood and affect. Patient History Past Medical History: Diagnosis Date Other conditions influencing health status Menarche Other specified postprocedural states History of Papanicolaou smear Personal history of other complications of , childbirth and the puerperium History of spontaneous Seizure-like activity (Multi) 07/11/2022 Past Surgical History: Procedure Laterality Date MULTIPLE TOOTH EXTRACTIONS 10/09/2023 Upper teeth extracted OTHER SURGICAL HISTORY 05/13/2019 Cholecystectomy OTHER SURGICAL HISTORY 09/27/2019 Dilation and curettage Family History Problem Relation Name Age of Onset Asthma Mother Diabetes Mother Hypertension Mother Mental illness Mother Other (cardiac disorder) Father Diabetes Father Hypertension Father Heart attack Father Thyroid disease Father Other (traumatic brain injury) Daughter Diabetes Other Gradparent Mental illness Sibling Social History Tobacco Use Smoking status: Every Day Current packs/day: 0.50 Average packs/day: 0.5 packs/day for 14.4 years (7.2 ttl pk-yrs) Types: Cigarettes Start date: 12/24/2009 Smokeless tobacco: Never Vaping Use Vaping status: Never Used Substance Use Topics Alcohol use: Never Drug use: Never Physical Exam ED Triage Vitals [05/21/241911] Temperature Heart Rate Respirations BP 36.5 C (97.7 F) 91 18 115/68 Pulse Ox Temp src Heart Rate Source Patient Position 100 % -- Monitor -- BP Location FiO2 (%) Left arm -- Physical Exam ED Course & MDM Diagnoses as of 05/21/242035 Abdominal pain during in first trimester (HHS-HCC) No data recorded Medical Decision Making Labs Reviewed HUMAN CHORIONIC GONADOTROPIN, SERUM QUANTITATIVE - Abnormal HCG, Beta-Quantitative 67,800 (*) Narrative: Total HCG measurement is performed using the [place] [employer] Access Immunoassay which detects intact HCG and free beta HCG subunit. This test is not indicated for use as a tumor marker. HCG testing is performed using a different test methodology at [facility] than other legacy [facility]. Direct result comparison should only be made within the same method. COMPREHENSIVE METABOLIC PANEL - Abnormal Glucose 150 (*) Sodium 137 Potassium 3.7 Chloride 103 Bicarbonate 25 Anion Gap 13 Urea Nitrogen 14 Creatinine 0.53 eGFR >90 Calcium 9.8 Albumin 4.2 Alkaline Phosphatase 49 Total Protein 7.4 AST 10 Bilirubin, Total 0.5 ALT 20 URINALYSIS WITH REFLEX CULTURE AND MICROSCOPIC - Abnormal Color, Urine Appearance, Urine Turbid (*) Specific [place], Urine 1.029 pH, Urine 6.0 Protein, Urine 10 (TRACE) Glucose, Urine OVER (4+) (*) Blood, Urine NEGATIVE Ketones, Urine NEGATIVE Bilirubin, Urine NEGATIVE Urobilinogen, Urine 4 (2+) (*) Nitrite, Urine NEGATIVE Leukocyte Esterase, Urine NEGATIVE Narrative: OVER is reported when the result is greater than the clinically reportable range. URINALYSIS MICROSCOPIC WITH REFLEX CULTURE - Abnormal WBC, Urine 1-5 WBC Clumps, Urine RARE RBC, Urine 1-2 Squamous Epithelial Cells, Urine 10-25 (FEW) Bacteria, Urine 2+ (*) Mucus, Urine FEW CBC WITH AUTO DIFFERENTIAL WBC 7.7 nRBC 0.0 RBC 4.94 Hemoglobin 14.3 Hematocrit 41.7 MCV 84 MCH 28.9 MCHC 34.3 RDW 12.1 Platelets 299 Neutrophils % 49.4 Immature Granulocytes %, Automated 0.1 Lymphocytes % 41.3 Monocytes % 6.3 Eosinophils % 2.3 Basophils % 0.6 Neutrophils Absolute 3.81 Immature Granulocytes Absolute, Au* 0.01 Lymphocytes Absolute 3.20 Monocytes Absolute 0.49 Eosinophils Absolute 0.18 Basophils Absolute 0.05 URINALYSIS WITH REFLEX CULTURE AND MICROSCOPIC Narrative: The following orders were created for panel order Urinalysis with Reflex Culture and Microscopic. Procedure Abnormality Status --------- ------ Urinalysis with Reflex C...[[id number]] Abnormal Final result Extra Urine Bolton Tube[[id number]] In process Please view results for these tests on the individual orders. EXTRA URINE BOLTON TUBE Medical Decision Making: Patient appears well nontoxic. Benign abdominal exam. Lab work unremarkable. hCG appropriate. Denies any vaginal bleeding or loss of fluid from vagina. Bacteria without leukocytes or nitrites. No urinary symptoms. Advised on follow-up with her OB on Friday. Asked return for new or worsening symptoms. Stable at time of discharge. Escalation of Care: Appropriate for discharge and follow-up with [facility]. Procedure Procedures Reza Dyer DO 05/21/242036 documented in this [facility] Work Phone: 1(401) 691-143812-13-2024 Physician Emergency department Note* Reza Dyer DO - 05/21/2024 6:55 PM EST HPI Chief Complaint Patient presents with Abdominal Pain C/o bilateral lower abd pain/ pelvic pain that radiates to flank sides that started yesterday. She is having morning sickness nausea, denies fever. She feels she is not peeing as much as she should. Denies constipation or diarrhea. Pt is 9 weeks Limitations to History: None HPI: 29-year-old G3, P1 at approximately 9 weeks presents with lower pelvic/abdominal pain. Presentover the past 1 day. Started initially on her left and now has moved to her right. Aching in nature. Admits to some morning sickness but no increase in her nausea. Denies any vomiting. Denies any dysuria or frequency. Denies any hematuria. Denies any loss of vaginal fluid. Denies any fall or trauma. Physical Exam: VS: As documented in the triage note and EMR flowsheet from this visit were reviewed. Appearance: Alert. cooperative, in no acute distress. Skin: Intact, dry skin, no lesions, rash, petechiae or purpura. HENT: Normocephalic, atraumatic. Nares patent. No intraoral lesions. Neck: Supple, without meningismus. Trachea at midline. No lymphadenopathy. Pulmonary: Clear bilaterally with good chest wall excursion. No rales, rhonchi or wheezing. No accessory muscle use or stridor. Cardiac: Regular rate and rhythm, no rubs, murmurs, or gallops. Abdomen: Abdomen is soft, nontender, and nondistended. No palpable organomegaly. No rebound or guarding. No CVA tenderness. Nonsurgical abdomen. Genitourinary: Exam deferred. Musculoskeletal: Full range of motion. Pulses full and equal. No cyanosis, clubbing, or edema. Psychiatric: Appropriate mood and affect. Patient History Past Medical History: Diagnosis Date Other conditions influencing health status Menarche Other specified postprocedural states History of Papanicolaou smear Personal history of other complications of , childbirth and the puerperium History of spontaneous Seizure-like activity (Multi) 07/11/2022 Past Surgical History: Procedure Laterality Date MULTIPLE TOOTH EXTRACTIONS 10/09/2023 Upper teeth extracted OTHER SURGICAL HISTORY 05/13/2019 Cholecystectomy OTHER SURGICAL HISTORY 09/27/2019 Dilation and curettage Family History Problem Relation Name Age of Onset Asthma Mother Diabetes Mother Hypertension Mother Mental illness Mother Other (cardiac disorder) Father Diabetes Father Hypertension Father Heart attack Father Thyroid disease Father Other (traumatic brain injury) Daughter Diabetes Other Gradparent Mental illness Sibling Social History Tobacco Use Smoking status: Every Day Current packs/day: 0.50 Average packs/day: 0.5 packs/day for 14.4 years (7.2 ttl pk-yrs) Types: Cigarettes Start date: 12/24/2009 Smokeless tobacco: Never Vaping Use Vaping status: Never Used Substance Use Topics Alcohol use: Never Drug use: Never Physical Exam ED Triage Vitals [05/21/241911] Temperature Heart Rate Respirations BP 36.5 C (97.7 F) 91 18 115/68 Pulse Ox Temp src Heart Rate Source Patient Position 100 % -- Monitor -- BP Location FiO2 (%) Left arm -- Physical Exam ED Course & MDM Diagnoses as of 05/21/242035 Abdominal pain during in first trimester (HHS-HCC) No data recorded Medical Decision Making Labs Reviewed HUMAN CHORIONIC GONADOTROPIN, SERUM QUANTITATIVE - Abnormal HCG, Beta-Quantitative 67,800 (*) Narrative: Total HCG measurement is performed using the [place] Access Immunoassay which detects intact HCG and free beta HCG subunit. This test is not indicated for use as a tumor marker. HCG testing is performed using a different test methodology at [facility] than other legacy [facility]. Direct result comparison should only be made within the same method. COMPREHENSIVE METABOLIC PANEL - Abnormal Glucose 150 (*) Sodium 137 Potassium 3.7 Chloride 103 Bicarbonate 25 Anion Gap 13 Urea Nitrogen 14 Creatinine 0.53 eGFR >90 Calcium 9.8 Albumin 4.2 Alkaline Phosphatase 49 Total Protein 7.4 AST 10 Bilirubin, Total 0.5 ALT 20 URINALYSIS WITH REFLEX CULTURE AND MICROSCOPIC - Abnormal Color, Urine Appearance, Urine Turbid (*) Specific [place], Urine 1.029 pH, Urine 6.0 Protein, Urine 10 (TRACE) Glucose, Urine OVER (4+) (*) Blood, Urine NEGATIVE Ketones, Urine NEGATIVE Bilirubin, Urine NEGATIVE Urobilinogen, Urine 4 (2+) (*) Nitrite, Urine NEGATIVE Leukocyte Esterase, Urine NEGATIVE Narrative: OVER is reported when the result is greater than the clinically reportable range. URINALYSIS MICROSCOPIC WITH REFLEX CULTURE - Abnormal WBC, Urine 1-5 WBC Clumps, Urine RARE RBC, Urine 1-2 Squamous Epithelial Cells, Urine 10-25 (FEW) Bacteria, Urine 2+ (*) Mucus, Urine FEW CBC WITH AUTO DIFFERENTIAL WBC 7.7 nRBC 0.0 RBC 4.94 Hemoglobin 14.3 Hematocrit 41.7 MCV 84 MCH 28.9 MCHC 34.3 RDW 12.1 Platelets 299 Neutrophils % 49.4 Immature Granulocytes %, Automated 0.1 Lymphocytes % 41.3 Monocytes % 6.3 Eosinophils % 2.3 Basophils % 0.6 Neutrophils Absolute 3.81 Immature Granulocytes Absolute, Au* 0.01 Lymphocytes Absolute 3.20 Monocytes Absolute 0.49 Eosinophils Absolute 0.18 Basophils Absolute 0.05 URINALYSIS WITH REFLEX CULTURE AND MICROSCOPIC Narrative: The following orders were created for panel order Urinalysis with Reflex Culture and Microscopic. Procedure Abnormality Status --------- ------ Urinalysis with Reflex C...[[id number]] Abnormal Final result Extra Urine Bolton Tube[[id number]] In process Please view results for these tests on the individual orders. EXTRA URINE BOLTON TUBE Medical Decision Making: Patient appears well nontoxic. Benign abdominal exam. Lab work unremarkable. hCG appropriate. Denies any vaginal bleeding or loss of fluid from vagina. Bacteria without leukocytes or nitrites. No urinary symptoms. Advised on follow-up with her OB on Friday. Asked return for new or worsening symptoms. Stable at time of discharge. Escalation of Care: Appropriate for discharge and follow-up with [facility]. Procedure Procedures Reza Dyer DO 05/21/242036 [facility] Work Phone: [phone]) 958-114512-12-2024 Telephone encounter Note* Telephone Encounter - Krys Murcia RN - 05/20/2024 10:00 AM EST Left message for patient to call office. Review below recommendations. RX for Diclegis was sent in today. Received message from pharmacy that this needs Prior Auth. Krys Murcia RN [facility]12-12-2024 Telephone encounter Note* Telephone Encounter - Piper Julian MD - 05/20/2024 9:05 AM EST Options for n/v in are vit b6/unisom, can send the rx for this. The other meds mentioned.Symptomatic measures like pepermint and natali. Steroids we use sometimes but that would be a terrible option for her if she is diabetic. Needs to eat small simple meals and monitor BS closely for lows. Probably work in for an OB visit and wt check in the next week. Other option [facility] and consider a pump if we get to there. . Piper Julian MD [facility]12-12-2024 Telephone encounter Note* Telephone Encounter - Charlette Starkey RN - 05/20/2024 8:41 AM EST 9w5d Calling c/o n/v and low blood sugars. She states she has been having low blood sugar at some point everyday or every other day. Has been as low as 60s-90s. She has been having n/v from though and not taking anything daily for it. States she takes her insulin then eats and ends up vomitingwithin an hour sometimes. She is aware of vitamin B6 and unisom recommendation from her NOB appt and has not picked any up yet. She stated she is allergic to Zofran, Reglan and Phenergan too. Advisedif she's taking insulin and then vomiting after eating that is likely why her sugars are dropping. She has been trying to push fluids with electrolytes. She sees Dr. Guillermo and has not been in contact regarding low blood sugars yet. Advised she needs to contact his office too. Please advise. Charlette Starkey RN [facility]12-09-2024 Telephone encounter Note* Telephone Encounter - Amelia Rose RN - 05/17/2024 11:48 AM EST Spoke to patient and advised about insulin taking. No further questions for now. [facility]12-09-2024 Miscellaneous Notes* Telephone Encounter - Amelia Rose RN - 05/17/2024 11:48 AM EST Spoke to patient and advised about insulin taking. No further questions for now. documented in this encounterPark[facility] Telephone encounter Note * Telephone Encounter - Kelsy Guillermo DO - 05/17/2024 11:09 AM EST Reviewed BG data- responded as follows: Hi Hoda - your sensor average is 193 mg/dL. I would recommend that you do the following: increase NPH to 32 units at bedtime increase Humalog to 15 units prior to each meal. Will review again on friday thanks! KB [facility]12-09-2024 Miscellaneous Notes* Telephone Encounter - Kelsy Guillermo DO - 05/17/2024 11:09 AM EST Reviewed BG data- responded as follows: Hi Hoda - your sensor average is 193 mg/dL. I would recommend that you do the following: increase NPH to 32 units at bedtime increase Humalog to 15 units prior to each meal. Will review again on friday thanks! NILES documented in this encounterPark[facility] Procedure note* Ana Sawyer MSW - 05/11/2024 4:09 PM EST Sw met with patient to review social service needs and social service assistance options. Patient notes that she signed up for WIC. Patient also notes signing up for [facility] and [facility] Housing voucher. Patient notes that she is attending parenting classes through [facility]. Sw and patient also discussed reaching out to 180 for help with housing options. Patient reports that where she lives in [place] does not allow for children. Sw called 180 housing and supportive services with patient and left message for 180 to call patient back to discuss rental housing options in the area that allow for subsidy assistance. Patient also notes that she received food pantry and served meal listing. Patient notes that she has been thinking of applying for food assistance, but needs to work on obtaining income social security statements. Patient and Sw also discussed [employer] as well at [facility]. Sw wrote down [place] address and [facility] address and contact info for patient. Patient also noted that she sees [facility]. Patient has this direct number for any further assistance needs. Patient also noted that when she left this office that she would go down to 180 and see what housing supportive service resources they may be able to offer. [facility]12-03-2024 Procedure note* Ana Sawyer MSW - 05/11/2024 4:09 PM EST Sw met with patient to review social service needs and social service assistance options. Patient notes that she signed up for WIC. Patient also notes signing up for [facility] and [facility] Housing voucher. Patient notes that she is attending parenting classes through [facility]. Sw and patient also discussed reaching out to [facility] for help with housing options. Patient reports that where she lives in [place] does not allow for children. Sw called 180 housing and supportive services with patient and left message for 180 to call patient back to discuss rental housing options in the area that allow for subsidy assistance. Patient also notes that she received food pantry and served meal listing. Patient notes that she has been thinking of applying for food assistance, but needs to work on obtaining income social security statements. Patient and Sw also discussed Kiddy as well at [facility]. Sw wrote down [place] address and [facility] address and contact info for patient. Patient also noted that she sees counselor at [facility]. Patient has this direct number for any further assistance needs. Patient also noted that when she left this office that she would go down to 180 and see what housing supportive service resources they may be able to offer. documented in this encounterPark[facility]12-01-2024 Telephone encounter Note * Telephone Encounter - Kelsy Guillermo DO - 05/09/2024 7:40 AM EST Reviewed BG data-responded as follows: Good morning- I reviewed your BG data/ CGM data- your sensor average BG is 207 mg/dL. I would recommend that you adjust insulin as follows: NPH 25 units at bedtime Humalog 12 units prior to each meal. Will review again on friday- please forward your BG data again friday AM thanks Dr Guillermo [facility]12-01-2024 Miscellaneous Notes* Telephone Encounter - Kelsy Guillermo DO - 05/09/2024 7:40 AM EST Reviewed BG data-responded as follows: Good morning- I reviewed your BG data/ CGM data- your sensor average BG is 207 mg/dL. I would recommend that you adjust insulin as follows: NPH 25 units at bedtime Humalog 12 units prior to each meal. Will review again on friday- please forward your BG data again friday AM thanks Dr Guillermo documented in this encounterParkview Health [facility]11-29-2024 Note* Addendum Note - Zayda Parker APRN.CNP - 05/07/2024 10:36 AM ESTAddended by: ZAYDA PARKER on: 05/07/2024 10:36 AM Modules accepted: Orders [facility]11-29-2024 Miscellaneous Notes* Addendum Note - Zayda Parker APRN.CNP - 05/07/2024 10:36 AM ESTAddended by: ZAYDA PARKER on: 05/07/2024 10:36 AM Modules accepted: Orders * Addendum Note - Sundeep Salvador MA - 05/07/2024 10:25 AM ESTAddended by: SUNDEEP SALVADOR on: 05/07/2024 10:25 AM Modules accepted: Orders documented in this encounterParkview Health [facility]11-29-2024 Note* Addendum Note - Sundeep Salvador MA - 05/07/2024 10:25 AM ESTAddended by: SUNDEEP SALVADOR on: 05/07/2024 10:25 AM Modules accepted: Orders [facility]11-29-2024 Instructions* Patient Instructions* Zayda Parker APRN.CNP - 05/07/2024 9:01 AM EST Images from the original note were not included. Please select the following link to access the [facility] Your Guide to a Healthy . [email or web address]/healthypregnancyguide MORNING SICKNESS IN by Estela Villa M.D. for [employer] As you may already know, morning sickness can often be more appropriately called evening sickness or cmlaq-fscbqx-lh-the-day sickness. While there are the arabella few, most women (50-90%) experience some degree of nausea, some have vomiting, and a few develop a severe form of vomiting duringpregnancy called hyperemesis gravidarum. What causes the nausea and vomiting of ? We can't explain why some people feel fine and others are green for months. Even the same woman mayfeel vastly different in each . There is some relationship between nausea and the level ofthe hormone hCG. In twin pregnancies, and in other situations where the hCG is greater than expected, nausea and vomiting tend to be worse. In a destined for miscarriage, hCG levels tend to be low, and nausea is often less severe. This being said, a lack of nausea doesn't guarantee that the is destined for miscarriage. The fact that nausea and vomiting are often signs of a healthy can offer a silver lining in the dark cloud of miserable nausea. How long will the nausea last? Fortunately, for most women, nausea and vomiting are a first trimester event, peaking at week 9-10 and waning by week 14-16. When you are feeling bad the weeks can go by slowly but most momsdo feel tremendously better by the middle of the . Whether morning sickness is a brief experience or lasts through most of the , there are treatments that can make the weeks or months more tolerable. What can you do about it? Diet: See what works for you. Try eating bland dry foods, and avoid fatty or spicy foods. It is okay to eat a less than perfectly balanced diet in the first trimester. Have your liquids separately from dry foods. Try sports drinks, water, clear juices, Ranjan-aid, or non-caffeinated tea. Avoid carbonated beverages that fill up your stomach. Try eating lots of little meals. If you tend to feel sick when you first wake up, leave crackers next to the bed for a quick snack before rising. Keeping healthy snacks with you all day to nibble when you feel queasy can sometimes even prevent nausea from starting. vitamins and nausea: Pre- vitamins can sometimes worsen nausea in . While folate is necessary, especially early in the , it comes as a smaller pill that many people find more tolerable than the complete vitamin pill. Ask your practitioner if it is okay to temporarilyreplace vitamins and iron with just a folate pill if you find a significant worsening in the level of your nausea from the vitamins. Alternative therapies: Acupressure may be used to treat nausea in , and is not known to have any risks for the fetus. Wristbands (marketed for seasickness) that put pressure on an acupressure point at the wrist are often available at drugstores or travel stores. Natali root is used for nausea in many traditional cultures. Some women take fresh grated natali or natali tablets. It is possible that the pill form contains other ingredients or contaminants, so you may want to try fresh natali first. Medications: Emetrol is the only nausea medication approved for use in . It is available over the counter and is soothing to the stomach. A prescription medication called Bendectin was available in the 1970s-1979's and was shown to be safe in , but the company stopped marketing it in the [place] due to the costs of liability coverage. Bendectin contained 10 milligrams of vitamin B6 and 10 milligrams of Doxylamine. Two tablets were given at bedtime and a total of up to 4 tablets could be used in a 24-hour period. Interestingly, Unisom , which contains a higher dose (25 mg.) of the same medication, Doxylamine, is currently marketed as an ifut-jze-ijozqik sleeping pill. Ask your practitioner if creating a vitamin B6/Doxylaminecombination with tneu-gde-gyvjsws medications would be safe for you. Prescription medications like Compazine and Phenergan can be used if the benefits outweigh possiblerisks, but these have not been clearly shown to be safe in . Zofran , an expensive anti-nausea medication often used to treat nausea from chemotherapy, can also be used. Can I throw up so much it harms the baby? The act of vomiting cannot hurt your fetus, which is protected inside the uterus. If you get dehydrated or develop a metabolic imbalance, this can be unhealthy. As long as you can keep down liquids, you and your baby will generally do all right. Eat when you feel able. If you are unable to keep anyt robb down, or if you notice potential signs of dehydration such as lightheadedness, or concentratedand/or infrequent urination, call your practitioner. Some women need brief hospital admission for intravenous fluids and anti-nausea medications if their condition becomes severe. This severe form ofnausea and vomiting is called Hyperemesis Gravidarum. As with many symptoms of , remind yourself that this, too, shall pass, and you'll have a wonderful baby to show for it! TREATMENT OPTIONS, SHORT VERSION: Frequent small meals Hydrate throughout day Sea-Bands wrist pressure point applicators Natali root (powdered, in capsules) 250mg four times a day Vitamin B6 25 mg tablet three times a day Also may be taken with half a tablet of Unisom three times a day (Doxylamine 12.5 mg) If severe (weight loss, dehydration), call us and come in for IV hydration and possible medication in the form of injections. Prescription medications such as Phenergan, Compazine, Reglan Psychotherapy Services at [facility] Call Behavioral Health Access Line at [phone] to schedule Individual psychotherapy In-person or virtual Wait time for first evaluation may be 12 or more weeks. Wait list spots may be available. Due to the high volume of patients this option is recommended if you are looking for short term acute symptomcoping strategies. 8-933-9-JNCZ9TYBK - [place] Maternal Mental Health Hotline If you are in suicidal crisis, please call or text 4-788-181-TALK ( ) or visit the National Suicide Prevention Lifeline website. mchb.hrsa.gov If you are in crisis, call 911 or go to your nearest Emergency Department Here are some links for wonderful Providers here in the community and surrounding areas. Do not hesitate to contact their offices, many are offering virtual visits during this time. Psychotherapy Services outside of [facility] Support International Online Provider Directory https://aioTV Inc./ - can assist in finding providers in your area that might be more extensive then the list below. [facility] [place], [place] [address] [place] [address] [facility] [address] [place] [address] [facility] [address] [place] [address] [facility] [address] [place], [place] [address] Karen Kaur MD [address] [place], [place] [address] [facility] [address] [facility] [address] [facility], [address] [place] [address] [facility] [address] [place] [address] [facility] [place] / [place] [phone]/ [phone] Nancy Saba [address] [facility] [phone] [facility] Counseling and Mediation [place] / [place]y [phone] [facility] [address] [place] [address]/ art and stringer [phone] Mike Choudhary, ANASTASIA, CLC [facility] Therapy Workshops, telehealth and at home visits. [phone] [facility] counseling center 20 locations [place], [place], [place], [place], [place], [place], [place], [facility], [place], [place], [place], [place], [place], [place], [facility], [place], [place] ,[facility], [place], [place],[facility], [facility], [place], [facility], [facility], Pratik www.Velsys Limitedcowenatchee valley medical centerInvisible Puppy.Xendex Holding [phone] Psychotherapy resources outside of [facility] are listed below Holding Space Psychotherapy Web: https://wwwMotobuykers/ Support International Online Provider Directory https://aioTV Inc./ [facility] https://ecobeecoPayvment/ Partners for Behavioral Health and Wellness Web: https://Orca Pharmaceuticals/ Lanica for Effective Living Web: https://UserZoom/ LifeStance Web: https://eucl3D/location/state/[place]/ Signature [facility] Web: https://www.Playerize.org/ The Centers Web: https://SixthEye/ Recovery Resources Mental health and substance abuse help Web: https://www.ReCellular & RESOURCES Support International Direct peer support and connection to professional resources Non-Emergency Helpline Phone: / Text: [phone] Web: https://www..net/ Online Provider Directory: https://aioTV Inc./ Online Support Meetings: https://www..net/get-help/ffy-rsgeze-whsaqtc-meetings/ ARON Baby and Multifocal Lens Assembler Services Web: https://wwwAhalogy/ Body & Soul Expert information on medication use during and Text: [phone] Web: https://Signia Corporate Services/ NATIONAL REGISTRY FOR PSYCHIATRIC MEDICATIONS Currently studying the safety of antidepressants, ADHD medications and atypical antipsychotics taken during TO PARTICIPATE CALL TOLL-FREE: Web: https://womensmentalhealth.org/research/pregnancyregistry/ Support Groups: [facility]- Follow on facebook Baby Bistro support group led by [facility] department Resilient Mamas - Support Group [facility].org The POEM support group [phone] Www.poAdvebsonline.org Follow on facebook - DEDRICK hess tita Online support meetings PSI https://www..net/get-help/mrf-pahqoo-sxshqbq-meetings/ CC momoleksandr and me virtual support group 11:30-1pm Support for mothers and new babies and toddlers [place] childbirth education: Childbirth @the medical center.org or call [phone] CRISIS: CRISIS HOTLINE [phone], 911 or go to the nearest ER. [facility] [phone] / [facility] [phone] https://www.gowanda state hospitalrb.org Crisis text line text the word HOME to 490817 [facility] Counseling [address] tammie [address] [facility] [address] www.Proginet Brigitte Kwan clinical counseling [address] [address] www.H.BLOOM [phone] Holding space psychotherapy Maricruz No [facility] DRIVER MEDIC-S [address] [facility] www.HyperActive Technologies [phone]/ [place] [phone] They all offer virtual. All work with trauma Support groups Online support meetings PSI https://www..net/get-help/qbt-oqewlm-vebqrmz-meetings/ Here are the support groups they offer: Support of parents of 1 to 4 years old children POEM ( Outreach and Encouragement for Moms) offers free support for mothers experiencing depression, anxiety, and other mood and anxiety disorders. Masks are recommended but not required. No pre-registration required. Babies in arms welcome. meetings now take place on the and Friday of each month Location: [facility] [address] [place] [address] Room 122 (library room) 7-8:00 p.m. When you enter the baptist parking lot off of [address] the entrance door closest to our meeting room is on the front of the building toward the right. For those who are more comfortable with a virtual platform, PO offers online support group options several days of the week. To register for an online group or to find out more about POEM, website at: https://mhaohio.org/get-help/eumysvao-hcveyg-gqhagp/poem-services/ offer a confidential helpline: private Facebook group is called DEDRICK Cisneros Here are the groups they offer: Traumatic childbirth resources: Http://Elias Borges Urzeda.org/ https://www.Jump Ramp GamesjesusAdvanced Medical Innovations.Xendex Holding/ Name Location (s) Phone # (s) Services Website Holding Space Psychotherapy [address] [place], [place] - [phone]; [address] [phone] In-Person GROUPS INDIVIDUAL THERAPY MATERNAL- MENTAL HEALTH MEDICATION MANAGEMENT PLAY AND ART THERAPY TELETHERAPY https://www.Iron.io/services/ Neha herrera [place] HESS? [address] [address] ? [address] [place], [place] [address] ? WINTERS [address] [address]? Grief Support Groups Individual Grief Counseling Spiritual Care Memorial Events https://hess.cornershealthsouth - [facility] of unioneofhuntsman mental health institutee.org/grief-services [facility] [address] [place], [place] [address]; ; Email: Women's Mental Health; Couples Counseling; Trauma (EMDR); Stress Management; Mood and Anxiety Related Disorders- and much more https://www.Bionic Panda Games familycounshampshire memorial hospital.Xendex Holding/ LifeStance Numerous as they have contract providers: access website to find specific providers nearyou Counseling including CBT and EMDR as well as many more modalities; Medication Management; Telehealth and In-Person https://InTouch Technologies.Xendex Holding/ Partners for Behavioral Health and Wellness [address] [address]; [phone] Personal, Family and Group Therapy; Psychological Testing and Diagnosis; Medication Management; Life and Career Coaching; Psychoanalysis; Literacy Testing; Yoga and Meditation https://Whitcomb Law PC.Xendex Holding/ Fit Mind [place] [address] [facility] [address], [place] [address] [address] ; [address] [facility], [address] [place] [address]; Office # for both sites: Individual and Couples Counseling https://www.iMICROQminKukupia.com/paymentinsurance.html OCD & Anxiety [facility] [address], [address], [place] [address]; Specialize in Cognitive-Behavioral Therapy (CBT) for the treatment of anxiety disorders across the lifespan. TELEHEALTH ONLY. https://ocdandanxietycentDOOMOROmercy health st. elizabeth youngstown hospitalSedia Biosciences.Xendex Holding/faqs [facility] [address] [place], [address] [place] [address] [facility] [place], [address] [place] [address] [facility] [place], [address] [place] [address] [facility] [place], [address], [address] [place] [address] [place] [address]. [place], [address] [place] [address] [place], [address] Transportation Services To minimize patient barriers, [facility] provides transportation services to patients who qualify. If you are unable to get to your appointment at any of our facilities, please let us know. Need help now? Stop by one of our walk-in clinics to establish behavioral health care. Counseling Indvidual, Group, Couples and Family Counseling and EMDR. Medication Management Case Management benefits applications housing assistance Substance abuse treatment Medication assisted treatment https://www.[facility].org/mental-health/ [facility] OFFICE AT [facility] [address] [place] [address] [facility] OFFICE [address] [place] [address] [facility]IL[facility] OFFICE [address] [place] [address] [facility] OFFICE (at [facility]) [address] [place] [address] [facility] SYRINGE EXCHANGE PROGRAM & HIV SCREENING [address] [place] [address] [facility] [facility] EXCHANGE PROGRAM [address] [place] [address] Behavioral Health Urgent Care: [facility] Sites Counseling Indvidual and Group Medication Management Case Management benefits applications housing assistance Substance abuse treatment Medication assisted treatment Employment Services/ Job Training https://Incentive Logic.org/ Recovery Resources [address] [place], [place] [address]: P: [phone] [address] [facility], [address], [place], [place] [address] P: [phone] Our services include: Addiction Mental Health Treatment Assessment Psychiatry Medical Care Employment Housing Drug and Alcohol Prevention HIV/AIDS Prevention https://www.recres.org/ [facility] [place] [address] [place] [address] [place] [address].[address] [place], [place] [address] [place] [address] [place] [address] [facility] [address] [place] [address] [place] [address] [address] [place] [address] TMS Therapy/ Counseling Psychocological Testing for ADHD Medication Management In-Person/ Telemedicine https://www.Facet Solutions.com/patients-depression Memory & Psychological services [address], [place] [address] Neuropsychological Testing For ADHD https://www.memoryandpsych.com/ [facility] Office [address] [place] [address] [address] [address] [place] [address] [address] Providing [id number]-dhcf and telehealth services. Adult Case Management Community Education and Prevention Employment Outpatient Treatment - Counseling & Psychotherapy Psychiatric Services [email or web address] [address] [place] [address] [facility]) [address] [place] [address] Virtual Appointments! Now offering safe and convenient virtual client appointments to anyone in [place]! Individual Therapy Couples/Relationship Therapy Trauma/EMDR Therapy Art Therapy Play Therapy Superior Court Judge Support: Parenting Skills, Parent Child Interaction Therapy, Parent Infant Interaction Therapy Meditation Dietitian/[facility] Group Therapy Yoga [email or web address] [phone] Private Practice: Telehealth Only Specializes in EMDR for Trauma None How SMOKING Affects Your and Your Baby During Smoking during affects you and your baby's health before, during and after your baby is born. The nicotine (the addictive substance in cigarettes), carbon monoxide and numerous other poisons you inhale from a cigarette are carried through your bloodstream and go directly to your baby. Smoking while will: Lower the amount of oxygen available to you and your growing baby Increase your baby's heart rate Increase the chances of miscarriage and stillbirth Increase the risk that your baby is born prematurely and/or born with low weight Increase your baby's risk of developing respiratory problems The more cigarettes you smoke per day, the greater your baby's chances of developing these and other health problems. There is no safe level of smoking for your baby's health. How does secondhand smoke affect me and my baby? Second-hand smoke (also called passive smoke or environmental tobacco smoke) is the combination of smoke from a burning cigarette and smoke exhaled by a smoker. The smoke that carranza off the end of a cigarette or cigar contains more harmful substances ( tar, carbon monoxide, nicotine and others) than the smoke inhaled by the smoker. If you are regularly exposed to second-hand smoke, you increase your and your baby's risk of developing lung cancer, heart disease, emphysema, allergies, asthma and other health problems. Babies exposed to second-hand smoke may also develop reduced lung capacity and are at higher risk for sudden infant syndrome (SIDS). What happens if I keep smoking after my baby is born? If you continue to smoke after your baby is born, you increase his or her chance of developing certain illnesses and problems, such as: Frequent colds Bronchitis and pneumonia Asthma Chronic coughs Ear infections High blood pressure Learning and behavior problems later in childhood Why should I quit smoking? Smoking is the leading cause of preventable in the [place] By quitting you can: Prolong your life Lower your risk of heart disease Lower your risk of developing lung, throat, mouth, pancreatic and bladder cancer Lower your risk of developing breathing problems such as chronic obstructive pulmonary disease (COPD), asthma and emphysema Lower your risk of developing allergies Raise your energy level Improve your appearance; your skin will wrinkle less and look better, and your fingers and teeth will not be yellow Improve your sense of smell and taste Feel healthier overall, with improved self-esteem Save a lot of money (the average smoker spends $740 a year for cigarettes!) How can I quit smoking? There is no one way to quit smoking that works for everyone, since each person has different smoking habits. Here are some tips: Hide your matches, lighters, and ashtrays. Take a deep breath and hold it for five to ten seconds whenever you get the urge to smoke. Designate your home a non-smoking area. Ask people who smoke not to smoke around you. Drink less caffeinated beverages; caffeine may stimulate your urge to smoke. Also avoid alcohol, asit also may increase your urge to smoke and can be harmful to your baby. Change your habits connected with smoking. If you smoked while driving or when feeling stressed, try other activities to replace smoking. Keep mints or gum (preferably sugarless) on hand for those times when you get the urge to smoke. Stay active to keep your mind off smoking and help relieve tension: take a walk, exercise, read a book or try a new a hobby. Look for support from others. Join a support group or smoking cessation program, such as the [facility] Smoking Cessation Program. For more information, please call . Do not go places where many people are smoking such as bars or clubs, and smoking sections of restaurants. Should I use a nicotine replacement to help me quit? Nicotine gum and patches release nicotine into the bloodstream of the smoker who is trying to quit.Although these products can reduce withdrawal symptoms and decrease cravings in smokers who are trying to quit, nicotine is quite toxic and potentially harmful to the fetus (as well as to the who is ). Therefore, these and any other products containing nicotine are not always ecommended for the woman who is trying to quit smoking. They may be prescribed in indivdual cases. How will I feel when I quit? The benefits of not smoking start within days of quitting. After you quit, you and your baby's heart beat will return to normal, and your baby will be less likely to develop breathing problems. You may have symptoms of withdrawal because your body is used to nicotine, the addictive substance in cigarettes. You may crave cigarettes, be irritable, feel very hungry, cough often, get headaches or have difficulty concentrating. The withdrawal symptoms are only temporary. They are strongest when you first quit but will go awaywithin 10 to 14 days. When withdrawal symptoms occur, stay in control. Think about your reasons forquitting. Remind yourself that these are signs that your body is healing and getting used to being without cigarettes. Remember that withdrawal symptoms are easier to treat than the major diseases that smoking can cause. Even after the withdrawal is over, expect periodic urges to smoke. However, these cravings are generally short-lived and will go away whether you smoke or not. Don't Smoke! If you smoke again (called a relapse) do not lose hope. Seventy-five percent of those who quit relapse. Most smokers quit three times before they are successful. If you relapse, don't give up! Plan ahead and think about what you will do next time you get the urge to smoke. (This information is provided by the [facility] and is not intended to replace the medical advice of your doctor or health care provider. Please consult your health care provider for advice about a specific medical condition. For additional written health information, please call the Cancer Answer Line at [facility] [place] Friday - Friday 8-4:30 for assistance: [phone]. Or [email or web address]/) From [facility]'s Tobacco Cessation website: Our comprehensive smoking cessation program contains three main modules. These modules include the following: One-on-one weekly 30-minute counseling sessions with a respiratory therapist. Education about the various nicotine replacement therapies and medications and alternative methods used for cessation. Guidance and support; plus, we will contact your physician to obtain any required prescriptions formedications related to cessation. Insurance is accepted for this six-week program. Please check with your provider about whether yourplan covers tobacco cessation programs. In the event your insurance provider does not cover your six-week smoking cessation program, we encourage you to contact us at your earliest convenience by calling . One of our friendly team members will be happy to help you with your financial plan. Contact [phone] for more information. [place] Tobacco Program Visit [email or web address] or call 8-130-UJBR-NOW documented in this encounter[facility]11[facility] History of Present illness Narrative* Jamari Byrne MD - 05/04/2024 2:20 PM EST Subjective Patient ID: Hoda Kaur is a 29 y.o. female who presents for 3 month follow up (DM, bipolar depression, Necosiosis lipodica). HPI [address] Julian is the ob Endo seeing Dr Kelsy Guillermo [facility] SHIRA buspar fluoxetine Per Dr Jackson Anxiety and stress is very high Has a 7 year old dtr [place] in 2018 with twins Pt is scared about EDC December 18 7 weeks EGA Smoker 10 to 6 per day Smoking helps to calm down Discussed smoking cessation Review of Systems Objective BP 118/76 Pulse 95 Wt 76.7 kg (169 lb) LMP 03/13/2024 (Exact Date) SpO2 98% BMI 31.93 kg/m Physical Exam Vitals reviewed. Constitutional: Appearance: Normal appearance. HENT: Head: Normocephalic and atraumatic. Eyes: Conjunctiva/sclera: Conjunctivae normal. Cardiovascular: Rate and Rhythm: Normal rate and regular rhythm. Pulmonary: Effort: Pulmonary effort is normal. Breath sounds: Normal breath sounds. Musculoskeletal: Cervical back: Neck supple. Skin: General: Skin is warm and dry. Neurological: General: No focal deficit present. Mental Status: She is alert and oriented to person, place, and time. Psychiatric: Mood and Affect: Mood normal. Behavior: Behavior normal. Thought Content: Thought content normal. Judgment: Judgment normal. Assessment/Plan Diagnoses and all orders for this visit: Bipolar depression (Multi) - busPIRone (Buspar) 15 mg tablet; Take 1 tablet (15 mg) by mouth once daily. Hyperglycemia due to diabetes mellitus (Multi) Cigarette nicotine dependence with other nicotine-induced disorder documented in this [facility] Work Phone: [phone]) 263-848311-25-2024 Nurse Note* Amelia Rose RN - 05/03/2024 3:06 PM EST AMBULATORY PATIENT EDUCATION NOTE The patient started the following personal CGM today: Freestyle Libre3+ Patient-provided sensor expiration date: 08/06/2024 Sensor insertion location: back of left upper arm Insertion performed by: Stacey RN Patient response to insertion: no redness/bleeding noted and patient denies discomfort. Is the sensor at least 2 inches away from any pump infusion sites? n/a (patient does not use an insulin pump) CGM linked to insulin pump: none-patient is not using an insulin pump -Rationale for CGM use -CGM maintenance -Sensor insertion: site selection and rotation and operation of insertion device -Sensor start: starting sensor and warm-up time -Display screen overview: sensor glucose reading, trend arrows, trend graph , and alert messages -System settings: high alert level set at 180 mg/dL and low alert level set at 70 mg/dL -Use of sensor glucose in treatment decisions: no fingerstick confirmation required -If symptoms do not match sensor glucose: treat as needed based on fingerstick result -Calibration fingerstick minimum requirements: none - factory calibrated -Changing sensor every 15 days -Ending a sensor session: sensor/transmitter removal and disposal of sensor -Options for device upload, data review, and data sharing: Freestyle LibreLink -Other topics taught: OK to shower/bathe, avoid hot tubs/saunas, remove sensor/transmitter for CT scans/MRIs, and do not put system components through airport x-ray or full body scanners TOPIC: SURVIVAL SKILLS: Medication Administration Insulin Pen READINESS TO LEARN COGNITIVE ABILITY: Alert and oriented MOTIVATION TO LEARN: Interested FAMILY SUPPORT: Unable to assess - Family not present INSTRUCTION PROVIDED TO: Patient PATIENT LEARNS BEST BY: Individual Instruction Written Instruction - Hand-outs Verbal Instruction Demonstration FACTORS AFFECTING LEARNING: None PHYSICAL LIMITATIONS AFFECTING LEARNING: None LEARNING RESPONSE DIAGNOSIS: GDM METHOD OF INSTRUCTION: Individual instruction Written instruction/Handouts Verbal instruction Demonstration/Hands on Learning PATIENT / FAMILY RESPONSE: Verbalizes understanding of: SELF INJECTION- Correct procedure to administer self injection using clean technique FOLLOW-UP PLAN: Patient instructed to call with any further issues Recommend - Recommend continued instruction and follow up as directed SUPPLEMENTAL MATERIAL: Diabetes Guide REFERRAL (RECOMMENDATION): Nutrition (Outpatient) Electronically Signed By: Amelia Rose RN In Department: ENDOCRINOLOGY Time spent on patient education: 35 minutes. [facility]11-25-2024 Nurse Note* Amelia Rose RN - 05/03/2024 3:06 PM EST AMBULATORY PATIENT EDUCATION NOTE The patient started the following personal CGM today: Freestyle Libre3+ Patient-provided sensor expiration date: 08/06/2024 Sensor insertion location: back of left upper arm Insertion performed by: Stacey RN Patient response to insertion: no redness/bleeding noted and patient denies discomfort. Is the sensor at least 2 inches away from any pump infusion sites? n/a (patient does not use an insulin pump) CGM linked to insulin pump: none-patient is not using an insulin pump -Rationale for CGM use -CGM maintenance -Sensor insertion: site selection and rotation and operation of insertion device -Sensor start: starting sensor and warm-up time -Display screen overview: sensor glucose reading, trend arrows, trend graph , and alert messages -System settings: high alert level set at 180 mg/dL and low alert level set at 70 mg/dL -Use of sensor glucose in treatment decisions: no fingerstick confirmation required -If symptoms do not match sensor glucose: treat as needed based on fingerstick result -Calibration fingerstick minimum requirements: none - factory calibrated -Changing sensor every 15 days -Ending a sensor session: sensor/transmitter removal and disposal of sensor -Options for device upload, data review, and data sharing: Freestyle LibreLink -Other topics taught: OK to shower/bathe, avoid hot tubs/saunas, remove sensor/transmitter for CT scans/MRIs, and do not put system components through airport x-ray or full body scanners TOPIC: SURVIVAL SKILLS: Medication Administration Insulin Pen READINESS TO LEARN COGNITIVE ABILITY: Alert and oriented MOTIVATION TO LEARN: Interested FAMILY SUPPORT: Unable to assess - Family not present INSTRUCTION PROVIDED TO: Patient PATIENT LEARNS BEST BY: Individual Instruction Written Instruction - Hand-outs Verbal Instruction Demonstration FACTORS AFFECTING LEARNING: None PHYSICAL LIMITATIONS AFFECTING LEARNING: None LEARNING RESPONSE DIAGNOSIS: GDM METHOD OF INSTRUCTION: Individual instruction Written instruction/Handouts Verbal instruction Demonstration/Hands on Learning PATIENT / FAMILY RESPONSE: Verbalizes understanding of: SELF INJECTION- Correct procedure to administer self injection using clean technique FOLLOW-UP PLAN: Patient instructed to call with any further issues Recommend - Recommend continued instruction and follow up as directed SUPPLEMENTAL MATERIAL: Diabetes Guide REFERRAL (RECOMMENDATION): Nutrition (Outpatient) Electronically Signed By: Amelia Rose RN In Department: ENDOCRINOLOGY Time spent on patient education: 35 minutes. documented in this encounterPark[facility]11-[facility]-2024 Instructions* Patient Instructions* Kelsy Guillermo DO - 05/03/2024 2:42 PM EST 1) check your sugars fasting (60-90 mg/dL) and 2 hours post meal (less than 120 mg/dL) 2) forward me your blood glucose data weekly ( )- we will get you CGM (sensor)- you should write your numbers down fasting, and 2 hour post meal- and send me these data each friday. 3) stop Lantus- start NPH as follows: NPH 15 units at bedtime Humalog 6 units prior to each meal. 4) see wool classer (Carrie Larsen) virtual visit 5) see me in 4 weeks (virtual visit) documented in this encounterPark[facility] History of Present illness Narrative* Kelsy Guillermo DO - 05/03/2024 2:26 PM EST Reason for consultation: Evaluation of uncontrolled type 2 diabetes antepartum. Referring Physician:Dr Piper Julian MD My final recommendations will be communicated back to the requesting physician by way of shared Medical record or letter via US mail. HISTORY OF PRESENT ILLNESS; Ms. Kaur is a 29 year old F presenting at 7 weeks gestation for consultation regarding type 2 diabetes antepartum. Pt has 7 year old daughter- had DM during that - had macrosomia, delivered in [place]. She was initially diagnosed with type 2 diabetes at age 14. She does not have retinopathy- saw ophthalmology in February. Does have peripheral neuropathy- states both parents have this as well. She has strong family hx of DM including mother, father, grandparents. She started taking insulin in 2022- however states she has bipolar disorder and discontinues medications during these episodes. States she is taking Lantus 10 units at bedtime Humalog 4 units prior to meals She was using dexcom- but lost it. Just recently found glucometer. Her prepregnancy weight was 191 lbs and her current weight is 171 lbs. Staes she had top teeth pulled and has not been eating much. States this happened october 08. She is eating ok now- She does not have any BG data with her today. Hypoglycemia frequency: infrequent but present at times. Hypoglycemia awareness: Yes Hyperglycemia Symptoms: denies blurry vision reports polyuria denies polydipsia reports nocturia denies rapid weight loss ++ morning sickness. But otherwise no complaints/concerns at this time. PAST MEDICAL HISTORY Diagnosis Date Asthma Bipolar Gestational diabetes 12/20/2016 Gestational proteinuria, third trimester 12/20/2016 Herpes simplex type 2 (HSV-2) infection affecting , antepartum, unspecified trimester 04/19/2024 Hyperlipidemia LGA (large for gestational age) 12/23/2016 12/23/16 - >95% Polyhydramnios 01/01/2017 Pre-existing type 2 diabetes mellitus in in third trimester 12/12/2016 12/23/16 - admitted to [place] for glucoregulation, likely will need delivery at 37 weeks - KJ 12/12/2016 She is a Type 2 diabetic and started Insulin during the .Last HGB A1c 6.9 on 11/14/2016.She sees an pediatric physician, Dr Asif. Her records have been faxed here during the visit and are sent to [address] Gramajo review. TKRN January 14, 2017 EFW is approx 95%. Monitor closely, cons with care elsewhere, antepartum 12/12/2016 12/12/2016Patient is transferring care from [facility]. She states she has moved from [place] to [place] and wishes to be seen here.There is some notations by her previous doctor ofnon-compliance issues with keeping appointments and diabetic diet/Insulin dosages. She states she was seen at the [facility] 11/18 for decreased movement and then again about the we Recurrent UTI Type 2 diabetes mellitus (HCC) PAST SURGICAL HISTORY Procedure Laterality Date CHOLECYSTECTOMY D&C, DIAG AND/OR THERAPEUTIC 2017 FAMILY HISTORY Problem Relation Age of Onset Hyperlipidemia Mother Diabetes Mother Hypertension Mother other (neuropathy) Mother Diabetes Father Heart Father Hypertension Father Hyperlipidemia Father Thyroid Sister Multiple Sclerosis Sister Depression Sister Anxiety disorder Sister other (carpal tunnel) Sister Hyperlipidemia Brother No Known Problems Brother Heart Maternal Grandmother Diabetes Maternal Grandfather Obesity Maternal Grandfather Diabetes Paternal Grandmother Heart Attack Paternal Grandmother Cancer Paternal Grandfather Social History Tobacco Use Smoking status: Every Day Current packs/day: 0.50 Average packs/day: 0.5 packs/day for 14.0 years (7.0 ttl pk-yrs) Types: Cigarettes Smokeless tobacco: Never Vaping Use Vaping status: Never Used Substance Use Topics Alcohol use: No Drug use: No Current Outpatient Medications Medication Sig Dispense Refill busPIRone (BUSPAR) 15 mg tablet acyclovir (ZOVIRAX) 400 mg tablet TAKE 2 TABLETS (800 MG) BY MOUTH 3 TIMES A DAY FOR 2 DAYS. clobetasol (TEMOVATE) 0.05 % cream PLEASE SEE ATTACHED FOR DETAILED DIRECTIONS insulin lispro (HUMALOG KWIKPEN) 100 unit/mL Inject 4 Units subcutaneously. albuterol HFA (PROVENTIL HFA, VENTOLIN HFA) 90 mcg/actuation inhaler Inhale 2 Puffs as instructed every 6 hours as needed. metFORMIN (GLUCOPHAGE) 1,000 mg tablet Take 1,000 mg by mouth. VIT 10-IRON FUM-FOLIC ORAL Take by mouth. metFORMIN (GLUCOPHAGE) 1,000 mg tablet TAKE 1 TABLET (1,000 MG) BY MOUTH IN THE MORNING AND 1 TABLET (1,000 MG) BEFORE BEDTIME. insulin glargine (LANTUS SOLOSTAR U-100 INSULIN) 100 unit/mL (3 mL) FLUoxetine (PROZAC) 40 mg capsule Take 40 mg by mouth. DEXCOM G6 SENSOR candice APPLY EVERY 10 DAYS (Patient not taking: Reported on 05/03/2024) DEXCOM G6 TRANSMITTER candice CHANGE DIRECTED (Patient not taking: Reported on 05/03/2024) albuterol HFA (PROVENTIL HFA, VENTOLIN HFA) 90 mcg/actuation inhaler Inhale 2 Puffs as instructed. No current facility-administered medications for this visit. Allergies As of Date: 05/03/2024 Allergen Noted Reaction ALUMINUM-MAGNESIUM HYDROXIDE 02/05/2018 GI Upset ARIPIPRAZOLE 12/13/2022 Mental Status Change QUETIAPINE 10/04/2018 Other: See Comments and Shortness of Breath METOCLOPRAMIDE 02/10/2019 Vomiting, Hives, and Unknown PROMETHAZINE 07/11/2023 GI Upset ZOFRAN [ONDANSETRON] 07/11/2023 Vomiting ZOLOFT [SERTRALINE] 07/11/2023 Mental Status Change Fully Assessed 05/03/2024 REVIEW OF SYSTEMS: General: no fever and no chills Skin: no rashes, pruritis or dry skin Eyes: no blurred or double vision or eye pain Cardiac: denies chest pain, heart palpitations or orthopnea Pulmonary: denies wheezing, productive cough or exertional dyspnea GI: nausea and vomiting Musc: denies history of upper or lower extremity weakness Reproductive: gravid at 7 weeks gestation, menses reqular prior to the . Endocrine: complains of polyuria and nocturia Hematology: Negative for anemia, easy bleeding and bruising. PHYSICAL EXAM: BP 101/67 Pulse 94 Wt 77.9 kg (171 lb 11.8 oz) LMP 03/13/2024 (Exact Date) BMI 30.91 kg/m2 GENERAL: Alert, no distress, cooperative SKIN: Skin color, texture, turgor normal. No rashes or lesions. HEAD/SINUSES: No significant findings EYES: sclera non-icteric, EOMs intact. ABDOMEN: gravid at 7 weeks EXTREMITIES: Normal exam of the extremities NEURO: AAO x 3, no focal deficits. The remainder of the physical exam is noncontributory. DATA: Hemoglobin A1C (%) Date Value 12/16/2016 6.6 IMPRESSION: Ms. Kaur is a 29 year old female at 7+ weeks gestation here for evaluation of gestational diabetes. RECOMMENDATIONS: 1. The patient was counseled regarding the maternal and risks of hyperglycemia during . risks include, but are not limited to: congenital abnormalities, hypoxia and stillbirth, macrosomia, shoulder dystocia and hypoglycemia. Maternal risks include increased risks of pre-eclampsia and delivery. I discussed in detail with her that her risk of significant adverse outcome is high- 15-20% given her HbA1c over 10% and that it is extremely important thatwe normalize her BG RAJNI. She understands this and will work at it. 2. I recommend the patient check her blood glucose fasting and 2 hour after each meal, we have provided her with a glucometer if she does not have one. The following blood glucose targets were discussed: fasting blood glucose concentration between 60-90 mg/dL, and 2 hour postprandial blood glucose c oncentration of less than 120 mg/dL. She was encouraged to limit carbohydrate intake, to walk aftermeals, (if not contraindicated) and will be scheduled with our dietitian, (if not done already). Regarding her blood glucose management, I recommend she do the followin) check your sugars fasting (60-90 mg/dL) and 2 hours post meal (less than 120 mg/dL) 2) forward me your blood glucose data weekly ( )- we will get you CGM (sensor)- you should write your numbers down fasting, and 2 hour post meal- and send me these data each friday. 3) stop Lantus- start NPH as follows: NPH 15 units at bedtime Humalog 6 units prior to each meal. 4) see wool classer (Carrie Larsen) virtual visit 5) see me in 4 weeks (virtual visit) Melissa will call us with any questions or concerns in the interim. Rx sent to her pharmacy. Shemet with our RN today for CGM placement. 3. TSH was ordered today, if not done previously during this . 4.ophthalmology-: she has seen ophthalmology within the last two months and does not have diabetic retinopathy. I spent a total of 60 minutes on the date of the service which included preparing to see the patient, [id number] patient care, completing clinical documentation, obtaining and/or reviewing separately obtained history, performing a medically appropriate examination, counseling and educating the pat ient/family/caregiver, and ordering medications, tests, or procedures. Kelsy Guillermo DO documented in this encounterPark[facility] Telephone encounter Note * Telephone Encounter - Brenda Lares RN - 05/03/2024 11:11 AM EST Patient had intake questions completed today for upcoming new OB appointment with Zayda stratton.. Please see her depression and anxiety scoring. Patient states her anxiety has not worsened lately and that My symptoms are typical Denies any worsening symptoms. Patient has a history of bipolar depression diagnosed in 2014. She currently sees Dr. Womack, a psychiatrist at [facility]. States that she recently had an appointment with him and has an upcoming appointment inJanuary. Patient states he is aware that she is and has discussed psychiatric medications during . Also sees a therapist Dr. Olmstead at the [facility]. Her next ap pointment there is May 10. She states she sees him every 2 weeks. Patient states she does have a history of depression. She admits to 2 psychiatric hospitalizations-one in 2018 and onein 2020. She states that she last had suicidal thoughts in February. She states that she is able and willing to go to the ER or call crisis if she experiences any suicidal thoughts. FYI. Call back only if further advice [facility] Miscellaneous Notes* Telephone Encounter - Brenda Lares RN - 05/03/2024 11:11 AM EST Patient had intake questions completed today for upcoming new OB appointment with Zayda stratton.. Please see her depression and anxiety scoring. Patient states her anxiety has not worsened lately and that My symptoms are typical Denies any worsening symptoms. Patient has a history of bipolar depression diagnosed in 2014. She currently sees Dr. Womack, a psychiatrist at [facility]. States that she recently had an appointment with him and has an upcoming appointment inJanuary. Patient states he is aware that she is and has discussed psychiatric medications during . Also sees a therapist Dr. Olmstead at the [facility]. Her next ap pointment there is May 10. She states she sees him every 2 weeks. Patient states she does have a history of depression. She admits to 2 psychiatric hospitalizations-one in 2018 and onein 2020. She states that she last had suicidal thoughts in February. She states that she is able and willing to go to the ER or call crisis if she experiences any suicidal thoughts. FYI. Call back only if further advice documented in this encounterPark[facility]11-[facility]24 Telephone encounter Note * Telephone Encounter - Ana Sawyer MSW - 05/03/2024 10:54 AM EST Leeanne spoke with patient and set up appt for patient to come in to the office and see Sw on 05/11 @12:30 to review social service programs in the community. Patient will come to see Sw at her office at [facility]. [facility]11-25-[facility]24 Miscellaneous Notes* Telephone Encounter - Ana Sawyer MSW - 05/03/2024 10:54 AM EST Leeanne spoke with patient and set up appt for patient to come in to the office and see Sw on 05/11 @12:30 to review social service programs in the community. Patient will come to see Sw at her office at [facility]. documented in this encounterParkview [facility]11-25-[facility] History of Present illness Narrative* Zayda Parker APRN.REYES - 05/03/2024 10:13 AM EST Images from the original note were not included. Senior Telecommunications Engineer offered: Patient declines. INITIAL OB ASSESSMENT HPI: Melissa is a 29 year old White here to establish Obstetrical Care. Patient's last menstrual period was 03/13/2024 (exact date). from OB Dating Form. was unplanned but accepted, plans on keeping Complaints: (!) Pain on urination - resolved (treated for UTI and HSV outbreak 04/18/2024 at [facility]) OB History T1 L1 SAB1 IAB0 Ectopic0 Multiple0 Live Births1 # 1 - Date: 01/20/17, Sex: Female, Weight: 4.598 kg (10 lb 2.2 oz), GA: 37w4d, Type: Vaginal, Spontaneous, Apgar1: None, Apgar5: None, Living: Living, Comments: mild atony and hemorrhage, mild preeclampsia, EBL 600cc, lives with grandparents # 2 - Date: 02/2018, Sex: None, Weight: None, GA: 6w3d, Type: MISSED AB, Apgar1: None, Apgar5: None, Living: None, Comments: D&C, Pt states she was told it was a twin # 3 - Date: None, Sex: None, Weight: None, GA: None, Type: None, Apgar1: None, Apgar5: None, Living: None, Comments: None Previous history: Prior : No History of 4th degree laceration: no History of shoulder dystocia: No History of Hypertensive disorders including pre-eclampsia or gestational hypertension: Yes, pre e History of gestational diabetes: yes Patient's Risk Screening for delivery: Have you had a prior eng[place] between 20w and 36w6d? No Did you present in active spontaneous labor or have ruptured membranes, or advanced cervical dilation (greater than or equal to 4 cm) or effacement? No How many pregnancies have you had before? 2 Did you have a previous baby with a GBS Infection? No Please select all that apply for any prior : Baby large for gestational age MEDICAL/PSYCHOSOCIAL HISTORY: Severe Bleeding with delivery: Thyroid Disease: no Diabetes In : Yes ABO/RH(D) Date Value Ref Range Status 12/20/2016 A POSITIVE Final BMI 31.02 kg/(m^2) Last Pap: 07/09/2016 History of abnormal pap: no Prior treatment for cervical dysplasia: none. Last HPV: History of STDs: Chlamydia; Trichomonas; HSV Partner History of STDs: None and unsure of the partner Did you have a partner with Herpes? (!) Yes Tobacco use: Yes E-Cigarette/Vaping Use: Yes Caffeine use: No Drug use: No Alcohol use: No Multivitamin with Folic acid: Yes Would refuse blood transfusion if medically necessary: No Social Needs: Pt agreeable to Social service referral-Ana contacted. How often does this describe you? I don't have enough money to pay my bills: Sometimes Within the past 12 months, have you worried that your food would run out before you had money to buy more? Sometimes In the past 12 months, has lack of reliable transportation kept you from going to medical appointments or work, or from getting things needed for daily living? Sometimes In the past 12 months, have you had any concerns about having a place to live, or about the condition or quality of your housing? Sometimes Would you like more information on any of the following (please check all that apply)? Centering (group care classes) Social History: Do you have any history of depression, anxiety, PTSD, or other mood problems? Yes Do you have a history of abuse or trauma that may impact your experience? No Are you currently employed? No Depression/Anxiety Screening: admits to symptoms of depression. OB Depression and Anxiety Screening- This Encounter (since 05/06/2024) Over the past 2 weeks have you felt down, depressed, or hopeless? Positive - Further Testing Indicated Over the past two weeks, have you felt little interest or pleasure in doing things? Positive - Further Testing Indicated I have been able to laugh and see the funny side of things. Not quite so much now I have looked forward with enjoyment to things. Rather less than I used to I have blamed myself unnecessarily when things went wrong. Yes, most of the time I have been anxious or worried for no good reason. Yes, very often I have felt scared or panicky for no good reason. Yes, quite a lot Things have been getting on top of me. Yes, sometimes I haven't been coping as well as usual I have been so unhappy that I have had difficulty sleeping. Not at all I have felt sad or miserable. Yes, most of the time I have been so unhappy that I have been crying. Yes, most of the time The thought of harming myself has occurred to me. Never [place] Depression Scale Total 19 Feeling nervous, anxious or on edge 3-Nearly every day Not being able to stop or control worrying 0-Not al all Anxiety Pre-Screening Total (If >/= 3 additional questions will be reviewed) 3 Worrying too much about different things 3-Nearly every day Trouble relaxing 2-More than half the days Being so restless that it is hard to sit still 0-Not al all Becoming easily annoyed or irritable 1-Several days Feeling afraid, as if something awful might happen 3-Nearly every day Anxiety (SHIRA) Full Screening Total 12 Genetic Screening: Partner present: No Patient verbalized knowledge of partner family health history: NA Do you or your partner have any personal or family history of defects not previously discussed: No Do you have history of a complicated by anomaly, genetic condition, or demise: Yes, Pt states that her daughter has a chromosomal abnormality Preeclampsia Risk Screening: Screening for prevention of preeclampsia: High risk factors: History of pre-eclampsia, especially when accompanied by an adverse outcome and Type I or II diabetes mellitus Moderate risk ractors: None OB Risk Screening: Completed, positive findings include: Patient answered 'Yes' to Partner with Herpes Marital Status:Single Partner: Name: Either Alexi enamorado or father of her daughter and ex- Mahendra Kaur PAST MEDICAL HISTORY Diagnosis Date Asthma Bipolar Gestational diabetes 12/20/2016 Gestational proteinuria, third trimester 12/20/2016 H/O macrosomia in infant in prior , currently 05/07/2024 Herpes simplex type 2 (HSV-2) infection affecting , antepartum, unspecified trimester 04/19/2024 Hyperlipidemia LGA (large for gestational age) infant 12/23/2016 12/23/16 - >95% Polyhydramnios 01/01/2017 Pre-existing type 2 diabetes mellitus in in third trimester 12/12/2016 12/23/16 - admitted to [place] for glucoregulation, likely will need delivery at 37 weeks - KJ 12/12/2016 She is a Type 2 diabetic and started Insulin during the .Last HGB A1c 6.9 on 11/14/2016.She sees an pediatric physician, Dr Asif. Her records have been faxed here during the visit and are sent to [address] Gramajo review. TKRN January 14, 2017 EFW is approx 95%. Monitor closely, cons with care elsewhere, antepartum 12/12/2016 12/12/2016Patient is transferring care from [facility]. She states she has moved from [place] to [place] and wishes to be seen here.There is some notations by her previous doctor ofnon-compliance issues with keeping appointments and diabetic diet/Insulin dosages. She states she was seen at the [facility] 11/18 for decreased movement and then again about the 3rd we Recurrent UTI Type 2 diabetes mellitus (HCC) PAST SURGICAL HISTORY Procedure Laterality Date CHOLECYSTECTOMY D&C, DIAG AND/OR THERAPEUTIC 2017 Current Outpatient Medications Medication Sig Dispense Refill busPIRone (BUSPAR) 15 mg tablet clobetasol (TEMOVATE) 0.05 % cream PLEASE SEE ATTACHED FOR DETAILED DIRECTIONS insulin lispro (HUMALOG KWIKPEN) 100 unit/mL Inject 4 Units subcutaneously. albuterol HFA (PROVENTIL HFA, VENTOLIN HFA) 90 mcg/actuation inhaler Inhale 2 Puffs as instructed every 6 hours as needed. VIT 10-IRON FUM-FOLIC ORAL Take by mouth. insulin NPH (HUMULIN N NPH INSULIN KWIKPEN) 100 unit/mL (3 mL) injection pen 15 units at bedtime 5 Each 11 insulin lispro (HUMALOG KWIKPEN INSULIN) 100 unit/mL 6 units prior to each meal. 5 Each 11 Insulin Friendship, Disposable, (BD ULTRAFINE III MINI PEN) 31 gauge x 3/16 4 times/day 150 Each 5 Blood-Glucose Sensor (FREESTYLE ZOLTAN 3 PLUS SENSOR) candice Use as instructed. Change sensors every 14 days 2 Each 5 FLUoxetine (PROZAC) 40 mg capsule Take 40 mg by mouth. albuterol HFA (PROVENTIL HFA, VENTOLIN HFA) 90 mcg/actuation inhaler Inhale 2 Puffs as instructed. No current facility-administered medications for this visit. Allergies As of Date: 05/07/2024 Allergen Noted Reaction ALUMINUM-MAGNESIUM HYDROXIDE 02/05/2018 GI Upset ARIPIPRAZOLE 12/13/2022 Mental Status Change QUETIAPINE 10/04/2018 Other: See Comments and Shortness of Breath METOCLOPRAMIDE 02/10/2019 Vomiting, Hives, and Unknown PROMETHAZINE 07/11/2023 GI Upset ZOFRAN [ONDANSETRON] 07/11/2023 Vomiting ZOLOFT [SERTRALINE] 07/11/2023 Mental Status Change Fully Assessed 05/07/2024 Does patient have penicillin allergy: No REVIEW OF SYSTEMS: GENERAL: Negative for: Fever or Chills HEENT: Negative for: Headache, Impaired Vision, Ringing in Ears, Nosebleeds NECK: Negative for: Swelling, Pain, Stiffness RESPIRATORY: Negative for: Cough, Shortness of breath + wheezing GASTROINTESTINAL: Negative for: Heartburn, Constipation, Diarrhea, Blood in stool + nausea MUSCULOSKELETAL: Negative for: Muscle or joint pain, stiffness, Joint swelling NEUROLOGIC/PSYCHIATRIC: Negative for: Weakness, Paralysis, Numbness, Tingling, Tremor, Memory loss + anxiety and depression SKIN: Negative for: Itching + vaginal rash GENITOURINARY: Negative for: vaginal itching, hematuria or dysuria + vaginal discharge SENSITIVE EXAM: The sensitive examination was discussed with the Patient or Patient's Authorized Workforce Staffing Advisor. As applicable, any other physician, advance practice provider, medical student, or other health professional student that will be observing or involved in the sensitive examination for educational or training purposes was discussed with the Patient or Authorized Workforce Staffing Advisor. The Patient or Authorized Workforce Staffing Advisor has agreed to proceed with the sensitive examination. (Sensitive examination includes inspection and/or palpation of the breasts, pelvis, prostate and anorectal regions). PHYSICAL EXAM: BP 120/60 Ht 5' 2.402 (1.59m) Wt 171 lb 12.8 oz (77.9kg) LMP 03/13/2024 BMI 31.02 kg/(m^2). GENERAL: pleasant in no apparent distress DERMATOLOGY: + splotchy rashes to abdomen NECK: Supple, full range of motion, no adenopathy, and thyroid normal CHEST: Normal inspiratory effort BREAST: soft, non-tender, symmetric, no dominant mass, normal nipple-areolar complex, no lymphadenopathy, and no nipple discharge ABDOMEN: soft, non-tender, and no masses NEURO: alert and oriented x3,exam grossly non-focal PELVIS: External genitalia normal without lesions. + erythema to entire vulva extending to anus . Perineal body intact. No vaginal or cervical lesions. + nabothian cysts Cervix closed. Uterus 7 week size. No adnexal masses or tenderness. Clinical Pelvimetry: Pelvimetry clinically assessed as adequate Limited OB ultrasound exam: single intrauterine and positive cardiac activity SBIRT Melissa Kaur was given the 4P's screening tool. Melissa answered as follows: OB Opioid Screening - Last Recorded (since 08/07/2023) Did any of your parents have a problem with alcohol or other drug use? Yes mother-ETOH Does your partner have a problem with alcohol or other drug use? Yes 1 partner has issues with ETOH In the past, have you had difficulties in your life because of alcohol or other drugs, including prescription medications? Yes Pt states she abuse ETOH [id number] In the past month have you drunk any alcohol or used other drugs? No Are you taking medication for pain during the either prescribed or not? No Based on the screen and further questions, she is considered at moderate risk due to: High use in the past including recent treatment. Patient offered brief intervention. In discussing this issue my medical advice was that Melissa Kaur abstain. Her readiness tochange(0 lowest - 10 highest) was 10. We discussed her motivation to change based upon this response. Patient agreed that she would: abstain. Patient will return in 4 weeks to discuss her progress with this plan. In total, 3 minutes of personal time was spent administering and interpreting the screen, plus performing a brief intervention. Zayda Parker APRN.SELECT BANKER ASSESSMENT: 29 year old at 7w6d wks gestational age PLAN: 1) Patient oriented to practice. Patient given new OB orientation folder. Discussed nutrition, folic acid supplementation, dietary guidelines, exercise, smoking, alcohol, caffeine, and drug use. Discussed gestational weight gain guidelines. Discussed routine OB labs including STD/HIV. Discussed how to access Your guide to a health and the Railroad Supervisor Of Engines. Discussed hemoglobin electrophoresis. Patient: Declines Reviewed midwifery and tile grader services that are available. 2) Screening: Hemoglobin A1C: NA Baby Aspirin: The patient has been counseled about the potential benefits of low dose aspirin in and our recommendation that this be offered to all patients, regardless of whether they meet the high risk criteria specified above. She accepts Aneuploidy Screening: Discussed aneuploidy screening, nuchal translucency/first trimester early anatomy ultrasound and NIPT. The risks/benefits and limitations of NIPT/aneuploidy screening were reviewed including the potential for false negative and false positive results. The availability of genetic counseling was reviewed. Information on aneuploidy screening was provided. The patient chooses toproceed with First trimester early anatomy ultrasound (12-13w6d) and NIPT (10 weeks) Myriad Carrier Screening: Discussed myriad carrier screening. We discussed the availability of professional-society guided carrier screening and reviewed the conditions screened and limitations of screening. The availability of genetic counseling was reviewed. Information on carrier screening was provided. The patient Accepts 3) Patient offered option of Virtual Visits. Patient unsure. May consider in future. ACTIVE PROBLEM LIST Encounter for Supervision of High Risk in First Trimester, Antepartum - 05/07/2024 Comment: Care Checklist Vaccines: [] Flu vaccine [] declined [] RSV vaccine 32 0/7 - 36 6/7 (Feb - Jul) [] declined [] COVID vaccine [] declined [] TDaP 27-36 [] declined First trimester: [x] Dating US [x] 1st tri labs [x] Pap smear [x] Carrier screening [] declined [] NIPT screening - considering [] declined [x] First trimester anatomy scan [] declined [x] universal ASA ordered (start 12w-16w) [] declined [] M Power Consult [] not indicated [] declined Second trimester: [] AFP [] declined [] Anatomy scan [] Mode of Delivery - [] Feeding - [] Pump ordered [] Diabetes screen [] CBC, RPR Third trimester (28-30 weeks): [] Consent [] Contraception - [] Blending Line Attendant Third trimester (36-40 weeks): [] GBS [] Presentation - [] Scheduled [] yes - Hibiclens, pre-op instructions, CBC, T&S ordered [] no [] H&P Pre-Existing Type 2 Diabetes Mellitus in in First Trimester - 05/07/2024 Comment: May 07, 2024 Hemoglobin A1C 10.5 on 05/03 Uncontrolled. Under care of Dr. Guillermo - saw on 05/03/24 6 units of Humalog prior to meals 15 units of NPH at bedtime Planning for wool classer visit with Carrie Larsen Echo [] EKG [] Eye Exam [x] CMP [x] Hemoglobin A1C [x] 10.5 MFM consult placed. Unplanned - 05/07/2024 Comment: May 07, 2024 Patient states this is an unplanned . Patient unsure of paternity of baby. She states it could be her live-in boyfriend or her ex-. She plans on keeping the baby. Zayda Parker APRN.CNP Obesity Affecting in First Trimester - 05/07/2024 Comment: May 07, 2024 Pre BMI 31 Zayda Parker APRN.CNP History of Herpes Genitalis - 05/07/2024 Comment: Treated for HSV outbreak 04/18/2024 at [facility]. Plan for suppression therapy at 36 weeks. To notify with outbreaks. Zayda Parker APRN.REYES H/O Macrosomia in in Prior , Currently - 05/07/2024 Comment: May 07, 2024 10 lb 2oz at 37w4d Zayda Parker APRN.CNP History of Polyhydramnios - 05/07/2024 Comment: 2017 delivery. Zayda Parker APRN.CNP History of Bipolar Disorder - 05/07/2024 History of Depression - 12/12/2016 Comment: May 07, 2024 Has history of bipolar depression diagnosed in 2014. She currently sees Dr. Womack, a psychiatrist at [facility] in [place]. States that she recently had an appointment with him and has an upcoming appointment in June. Patient states he is aware that she is and has discussed psychiatric medications during . Taking Buspar and Prozac. Also sees a therapist Dr. Olmstead at the [facility]. Her next appointment there is May 10. She states she sees him every 2 weeks. Patient states she does have a history of depression. She admits to 2 psychiatric hospitalizations-one in 2018 and one in 2020. She states that she last had suicidal thoughts in February. She states that she is able and willing to go to the ER or call crisis if she experiences any suicidal thoughts. Mental health resources provided. To update throughout . History of Depression - 05/07/2024 Comment: May 07, 2024 Reports that she has trouble bonding with baby. Zayda Parker APRN.CNP History of Recurrent Uti (Urinary Tract Infection) - 05/07/2024 Comment: May 07, 2024 Screen every trimester. Zayda Parker APRN.CNP Tobacco Smoking Complicating in First Trimester - 05/07/2024 Comment: May 07, 2024 Smoking 6 cigarettes per day. Reviewed risks, resources provided. Cessation encouraged. Plans to quit this weekend. Zayda Parker APRN.REYES I spent 5 minutes counseling on risks, providing resources, and recommending smoking cessation. Zayda Parker APRN.CNP History of Alcohol Abuse - 05/07/2024 Comment: May 07, 2024 Patient states that she did abuse alcohol from [id number]. Denies any alcohol use this . Zayda Parker APRN.CNP History of Hemorrhage - 05/07/2024 Comment: May 07, 2024 600 mL, 2017. Chromosome Abnormality - 05/07/2024 Comment: May 07, 2024 Patient unsure of details - thinks she may be a carrier of something. Zayda Parker APRN.CNP History of Asthma - 05/07/2024 Comment: May 07, 2024 Uses Albeuterol weekly. Avoid Hemabate with delivery. Zayda Parker APRN.CNP Financial Insecurity - 05/07/2024 Comment: May 07, 2024 Patient has food, financial, and housing insecurities. Scheduled an appointment on May 11 at 1230 to discuss social service program options with Ana from social work. Zayda Parker APRN.CNP History of Pre-Eclampsia - 05/07/2024 Comment: May 07, 2024 Baseline labs ordered. Zayda Parker APRN.CNP History of Miscarriage - 05/07/2024 Comment: 2018, D+C. 6w3d. Vaginal Discharge During in First Trimester - 05/07/2024 Comment: May 07, 2024 Cultures obtained. Zayda Parker APRN.CNP History of Trichomoniasis - 05/07/2024 Comment: May 07, 2024 STD screening done. Zayda Parker APRN.CNP Family History of Autism - 05/07/2024 Comment: May 07, 2024 States her daughter has autism Zayda Parker APRN.SELECT BANKER Nausea and Vomiting During - 05/07/2024 Comment: 05/07/24 Vitamin B6 and Unisom doses reviewed. To notify if prescription is needed. Zayda Parker APRN.SELECT BANKER Uti (Urinary Tract Infection) in , Antepartum - 04/19/2024 Comment: April 19, 2024 Diagnosed in ER 04/18/24. Plan to rescreen. Zayda Parker APRN.SELECT BANKER Follow up in 4 weeks or sooner prn. Plan for NT scan between 12w0d and 13w6d gestation. MFM consult placed. Zayda Parker APRN.SELECT BANKER documented in this encounterPark[facility] Telephone encounter Note * Telephone Encounter - eTe Li RN - 04/30/2024 11:10 AM EST Reason for Call: Patient seeking care advice for elevated blood glucose, is , and she is not scheduled to see Endocrinology or OB until next week. Patient confirmed her [facility] PCP is currently managing her diabetes. Outcome: Patient confirmed she will send message and/or call PCP office today to disc and make them aware that she stopped glipizide. Reason for Disposition [1] Blood glucose > 240 mg/dL (13.3 mmol/L) AND [2] Answer Assessment - Initial Assessment Questions 1. BLOOD GLUCOSE: 273 at 0730 fasting 2. ONSET: see above 3. USUAL RANGE: 140-150 4. KETONES: not checked today 5. TYPE 1 or 2: type 2 6. INSULIN: Humalog 4 units am, .lunch, dinner and Lantus 10 units hs 7. DIABETES PILLS: metformin 1000 BID. Stopped glipizide 2 weeks ago due to and she didn't think it was safe to take. 8. OTHER SYMPTOMS: nausea 9. : yes, 6 weeks and a few day Protocols used: Diabetes - High Blood [id number] [facility]11-22-2024 Miscellaneous Notes* Telephone Encounter - Tee Li RN - 04/30/2024 11:10 AM EST Reason for Call: Patient seeking care advice for elevated blood glucose, is , and she is not scheduled to see Endocrinology or OB until next week. Patient confirmed her [facility] PCP is currently managing her diabetes. Outcome: Patient confirmed she will send message and/or call PCP office today to discus and make them aware that she stopped glipizide. Reason for Disposition [1] Blood glucose > 240 mg/dL (13.3 mmol/L) AND [2] Answer Assessment - Initial Assessment Questions 1. BLOOD GLUCOSE: 273 at 0730 fasting 2. ONSET: see above 3. USUAL RANGE: 140-150 4. KETONES: not checked today 5. TYPE 1 or 2: type 2 6. INSULIN: Humalog 4 units am, .lunch, dinner and Lantus 10 units hs 7. DIABETES PILLS: metformin 1000 BID. Stopped glipizide 2 weeks ago due to and she didn't think it was safe to take. 8. OTHER SYMPTOMS: nausea 9. : yes, 6 weeks and a few day Protocols used: Diabetes - High Blood [id number] documented in this encounterPark[facility]11-[facility] History of Present illness Narrative* Joanie Hurtado, SARAHY-[employer] B[employer]ER - 04/28/2024 8:40 AM EST Subjective Patient ID: Hoda Kaur is a 29 y.o. female who presents for Hospital FUV (PT is here today an ER FUV. She was seen on 04/18/24 where she learned she was and had a UTI along with being dx with HSV. Reports that has pretty much cleared up. Finished the medication for this. Reports she has been experiencing itching in private area. Did report she also finished medication for UTI. ). Patient presents for evaluation of vaginal yeast infection/bacterial vaginosis. Bacterial vaginosis: Seen and diagnosed at urgent care. She was prescribed Keflex for urinary tractinfection and oral Flagyl for bacterial vaginosis. She states that she is approximately 6 weeks at this time and is concerned of taking oral Flagyl. I did advise her to not take the oral Flagyl and provide her with a topical formulary. She was seen in the emergency department April 18 with a positive hCG quant of 2171. She is scheduled to see her OB through the [facility] in May, has a ultrasound scheduled in [place] next week on May 03 and is scheduled to see her primary care provider Dr. Byrne on May 04. She will report effectiveness of medication to Dr. Byrne on her visit. She reports no signs or symptoms of complication at this time. No vaginalbleeding, abdominal or back pain. She did state that around the 3-week gestation phase she had an ultrasound at [facility] which did not detect but showed a cyst. Review of Systems Constitutional: Negative for chills, diaphoresis, fatigue and unexpected weight change. HENT: Negative for dental problem, tinnitus and trouble swallowing. Eyes: Negative for visual disturbance. Respiratory: Negative for chest tightness and shortness of breath. Cardiovascular: Negative for chest pain, palpitations and leg swelling. Gastrointestinal: Negative for abdominal pain, constipation, diarrhea, nausea and rectal pain. Endocrine: Negative for polydipsia, polyphagia and polyuria. Genitourinary: Positive for vaginal discharge (White, itching). Negative for difficulty urinating, frequency, urgency, vaginal bleeding and vaginal pain. Musculoskeletal: Negative for arthralgias and myalgias. Skin: Negative for pallor and wound. Neurological: Negative for syncope, weakness, numbness and headaches. Psychiatric/Behavioral: Negative for suicidal ideas. The patient is not nervous/anxious. Objective BP 140/82 Pulse 104 Ht 1.549 m (5' 1) Wt 77 kg (169 lb 11.2 oz) LMP 03/13/2024 (Exact Date) SpO2 97% BMI 32.06 kg/m Physical Exam Vitals and nursing note reviewed. Constitutional: General: She is not in acute distress. Appearance: Normal appearance. She is normal weight. HENT: Head: Normocephalic. Nose: Nose normal. Mouth/Throat: Mouth: Mucous membranes are moist. Pharynx: Oropharynx is clear. Eyes: Pupils: Pupils are equal, round, and reactive to light. Cardiovascular: Rate and Rhythm: Normal rate and regular rhythm. Pulses: Normal pulses. Heart sounds: Normal heart sounds. Pulmonary: Effort: Pulmonary effort is normal. Breath sounds: Normal breath sounds. Abdominal: General: Bowel sounds are normal. Palpations: Abdomen is soft. Genitourinary: Vagina: Vaginal discharge present. Musculoskeletal: General: Normal range of motion. Cervical back: Normal range of motion. Skin: General: Skin is warm and dry. Capillary Refill: Capillary refill takes less than 2 seconds. Neurological: General: No focal deficit present. Mental Status: She is alert and oriented to person, place, and time. Mental status is at baseline. Psychiatric: Mood and Affect: Mood normal. Behavior: Behavior normal. Thought Content: Thought content normal. Judgment: Judgment normal. Assessment/Plan Diagnoses and all orders for this visit: Bacterial vaginosis - metroNIDAZOLE (Metrogel) 0.75 % (37.5mg/5 gram) vaginal gel; Insert 1 Application into the vaginaonce daily at bedtime for 5 days. Insert 1 applicatorful vaginally at bedtime for 5 days Less than 8 weeks gestation of ([facility] documented in [facility] encounterOhio [facility] Work Phone: 1(317) 183-206211-15-2024 Telephone encounter Note* Telephone Encounter - Sis Vargas - 04/23/2024 11:00 AM EST Called patient to offer virtual appointment, patient lives 1[place]25 hours away, patient is diabetic andcurrently taking insulin. Patient wants to come to office to meet Dr. Guillermo in person, patient given direct line to office if she would like to change appointment to virtual . Patient has testing supplies and BG logs were sent to her email advising patient to email Dr. Ca at . [facility]11-15-2024 Miscellaneous Notes* Telephone Encounter - Sis Vargas - 04/23/2024 11:00 AM EST Called patient to offer virtual appointment, patient lives 1.25 hours away, patient is diabetic andcurrently taking insulin. Patient wants to come to office to meet Dr. Guillermo in person, patient given direct line to office if she would like to change appointment to virtual . Patient has testing supplies and BG logs were sent to her email advising patient to email Dr. Ca at . documented in this encounterPark[facility]11-[facility]-2024 Telephone encounter Note * Telephone Encounter - Zayad Parker APRN.CNP - 04/19/2024 8:43 AM EST Noted. Zayda Parker APRN.CNP [facility]11-11-2024 Miscellaneous Notes* Telephone Encounter - Zayda Parker APRN.CNP - 04/19/2024 8:43 AM EST Noted. Zayda Parker APRN.CNP * Telephone Encounter - Krys Murcia RN - 04/19/2024 8:37 AM EST LMP 10/ Approximately 5w2d. Patient seen at ER yesterday. She was diagnosed with HSV outbreak and UTI. She was prescribed Keflex and Acyclovir. Wanted our office to be aware before her 05/07 NOB with EH. Krys Murcia RN documented in this encounterPark[facility]11-11-2024 Telephone encounter Note * Telephone Encounter - Krys Murcia RN - 04/19/2024 8:37 AM EST LMP 10 Approximately 5w2d. Patient seen at ER yesterday. She was diagnosed with HSV outbreak and UTI. She was prescribed Keflex and Acyclovir. Wanted our office to be aware before her 05/07 NOB with EH. Krys Murcia RN [facility]11-10-2024 Emergency department Note* Angy Lynne APRN-REYES - 04/18/2024 6:44 PM EST Chief Complaint Patient presents with Vaginal Discharge Pt reports vaginal discharge for around 10 days. Pt reports it is white in color. Reports chance ofpregnancy. Itching. Pain with urinating. Patient History Past Medical History: Diagnosis Date Other conditions influencing health status Menarche Other specified postprocedural states History of Papanicolaou smear Personal history of other complications of , childbirth and the puerperium History of spontaneous Seizure-like activity (Multi) 07/11/2022 Past Surgical History: Procedure Laterality Date MULTIPLE TOOTH EXTRACTIONS 10/09/2023 Upper teeth extracted OTHER SURGICAL HISTORY 05/13/2019 Cholecystectomy OTHER SURGICAL HISTORY 09/27/2019 Dilation and curettage Family History Problem Relation Name Age of Onset Asthma Mother Diabetes Mother Hypertension Mother Mental illness Mother Other (cardiac disorder) Father Diabetes Father Hypertension Father Heart attack Father Thyroid disease Father Other (traumatic brain injury) Daughter Diabetes Other Gradparent Mental illness Sibling Social History Social History Narrative Not on file Allergies Allergen Reactions Aluminum-Magnesium Hydroxide Other and GI Upset Aripiprazole Unknown Suicidal ideations Ondansetron Hcl Unknown, GI Upset and Other Quetiapine Palpitations, Shortness of breath, Unknown and Other SOB AND HEART RACING SOB AND HEART RACING SOB AND HEART RACING Metoclopramide Hives, Nausea/vomiting and Unknown Metoclopramide Hcl Unknown and Hives Ondansetron GI Upset, Other, Unknown and Nausea/vomiting Promethazine GI Upset Sertraline Other and Unknown Suicidal ideations PMH: Reviewed PSH: Reviewed Social History: Reviewed. Allergies reviewed. HPI: Melissa Drummond is a 29 y.o. female who presents to the ED today unaccompanied with complaints of vaginal discharge and concern for . Reports LMP 03/13/24. [id number]. She has been experiencing thin white discharge with itching for about 10 days now. Concern for STD also. Admits to history of trichomonas and chlamydia. REVIEW OF SYSTEMS: All other systems reviewed and negative except as listed in HPI. PHYSICAL EXAM: GENERAL: Vitals noted, no distress. Alert and oriented x 3. Non-toxic. EENT: TMs clear. Posterior oropharynx unremarkable. EOMI, no nystagmus noted. NECK: Supple. No masses. No midline tenderness. No meningeal signs. CARDIAC: Regular rate, rhythm. No murmurs rubs or gallops. No JVD. PULMONARY: Lungs clear and equal bilaterally. No wheezes rales or rhonchi. No respiratory distress. ABDOMEN: Soft, nondistended, and nontender. No peritoneal signs. Bowel sounds are present and normoactive in all 4 quadrants. No pulsatile masses. : External genitalia with scattered open lesions consistent with HSV. Thin white vaginal discharge noted in the vaginal vault. No bleeding. EXTREMITIES: No peripheral edema. SKIN: No rash. Warm, dry, and intact. NEURO: No focal neurologic deficits. Labs Reviewed HCG, URINE, QUALITATIVE - Abnormal Result Value HCG, Urine POSITIVE (*) URINALYSIS WITH REFLEX CULTURE AND MICROSCOPIC - Abnormal Color, Urine Yellow Appearance, Urine Turbid (*) Specific [place], Urine 1.048 (*) pH, Urine 6.0 Protein, Urine 30 (1+) (*) Glucose, Urine OVER (4+) (*) Blood, Urine 0.03 (TRACE) (*) Ketones, Urine 100 (3+) (*) Bilirubin, Urine NEGATIVE Urobilinogen, Urine 2 (1+) (*) Nitrite, Urine 2+ (*) Leukocyte Esterase, Urine 500 Zonia/ L (*) Narrative: OVER is reported when the result is greater than the clinically reportable range. MICROSCOPIC ONLY, URINE - Abnormal WBC, Urine >50 (*) RBC, Urine >20 (*) Squamous Epithelial Cells, Urine 10-25 (FEW) Bacteria, Urine 4+ (*) Mucus, Urine FEW HUMAN CHORIONIC GONADOTROPIN, SERUM QUANTITATIVE - Abnormal HCG, Beta-Quantitative 2,171 (*) Narrative: Total HCG measurement is performed using the [place] Access Immunoassay which detects intact HCG and free beta HCG subunit. This test is not indicated for use as a tumor marker. HCG testing is performed using a different test methodology at [facility] than other legacy [facility]. Direct result comparison should only be made within the same method. C. TRACHOMATIS + N. GONORRHOEAE, AMPLIFIED - Normal Neisseria gonorrhea,Amplified Not Detected Chlamydia trachomatis, Amplified Not Detected URINE CULTURE URINALYSIS WITH REFLEX CULTURE AND MICROSCOPIC Narrative: The following orders were created for panel order Urinalysis with Reflex Culture and Microscopic. Procedure Abnormality Status --------- ------ Urinalysis with Reflex C...[[id number]] Abnormal Final result Extra Urine Bolton Tube[[id number]] Please view results for these tests on the individual orders. EXTRA URINE BOLTON TUBE No orders to display Medical Decision Making ED COURSE: This patient was seen and examined by myself independently. She is concerned for today, however when I review her old charts I do note that she has an appointment with OB on 1128with a phone open to her family physician that she recently found out that she was . She then admits to me that she was in the emergency department at another hospital several days ago, wherestacy was found to be and had an ultrasound that did not show any evidence of ectopic however they had recommended that she have a repeat quant in 72 hours as it was low in the 400s at that time. She is also found to be having herpes outbreak at this time, states that she had been t reated in the past for herpes after having a positive blood test. Urine is infected tonight. She istreated with p.o. Keflex. Also treated with acyclovir for the herpes outbreak. Gonorrhea and Chlamydia testing are negative. Her quant test is up to 2,171 today. Advised to continue to follow with her OB appointment at the end of the month, follow-up with her PCP earlier as needed. Recommend return to ED for any new or worsening symptoms. She is discharged home in stable condition with computer instructions given. Differential Diagnoses Considered: STD, UTI, , HSV Chronic Medical Conditions Significantly Affecting Care: see above External Records Reviewed: I reviewed recent and relevant outside records including: PCP notes, prior discharge summary, previous radiologic studies Diagnostic testing considered: urine Escalation of Care: Appropriate for outpatient management Prescription Drug Consideration: Keflex, acyclovir DIAGNOSTIC IMPRESSION: #1 UTI in first trimester #2 herpes simplex outbreak RORY Patel 04/18/[id number] documented in this encounterOhio [facility] Work Phone: 1(364) 721-976611-10-2024 Physician Emergency department Note* RORY Patel - 04/18/2024 6:44 PM EST Chief Complaint Patient presents with Vaginal Discharge Pt reports vaginal discharge for around 10 days. Pt reports it is white in color. Reports chance ofpregnancy. Itching. Pain with urinating. Patient History Past Medical History: Diagnosis Date Other conditions influencing health status Menarche Other specified postprocedural states History of Papanicolaou smear Personal history of other complications of , childbirth and the puerperium History of spontaneous Seizure-like activity (Multi) 07/11/2022 Past Surgical History: Procedure Laterality Date MULTIPLE TOOTH EXTRACTIONS 10/09/2023 Upper teeth extracted OTHER SURGICAL HISTORY 05/13/2019 Cholecystectomy OTHER SURGICAL HISTORY 09/27/2019 Dilation and curettage Family History Problem Relation Name Age of Onset Asthma Mother Diabetes Mother Hypertension Mother Mental illness Mother Other (cardiac disorder) Father Diabetes Father Hypertension Father Heart attack Father Thyroid disease Father Other (traumatic brain injury) Daughter Diabetes Other Gradparent Mental illness Sibling Social History Social History Narrative Not on file Allergies Allergen Reactions Aluminum-Magnesium Hydroxide Other and GI Upset Aripiprazole Unknown Suicidal ideations Ondansetron Hcl Unknown, GI Upset and Other Quetiapine Palpitations, Shortness of breath, Unknown and Other SOB AND HEART RACING SOB AND HEART RACING SOB AND HEART RACING Metoclopramide Hives, Nausea/vomiting and Unknown Metoclopramide Hcl Unknown and Hives Ondansetron GI Upset, Other, Unknown and Nausea/vomiting Promethazine GI Upset Sertraline Other and Unknown Suicidal ideations PMH: Reviewed PSH: Reviewed Social History: Reviewed. Allergies reviewed. HPI: Melissa Drummond is a 29 y.o. female who presents to the ED today unaccompanied with complaints of vaginal discharge and concern for . Reports LMP 03/13/24. [id number]. She has been experiencing thin white discharge with itching for about 10 days now. Concern for STD also. Admits to history of trichomonas and chlamydia. REVIEW OF SYSTEMS: All other systems reviewed and negative except as listed in HPI. PHYSICAL EXAM: GENERAL: Vitals noted, no distress. Alert and oriented x 3. Non-toxic. EENT: TMs clear. Posterior oropharynx unremarkable. EOMI, no nystagmus noted. NECK: Supple. No masses. No midline tenderness. No meningeal signs. CARDIAC: Regular rate, rhythm. No murmurs rubs or gallops. No JVD. PULMONARY: Lungs clear and equal bilaterally. No wheezes rales or rhonchi. No respiratory distress. ABDOMEN: Soft, nondistended, and nontender. No peritoneal signs. Bowel sounds are present and normoactive in all 4 quadrants. No pulsatile masses. : External genitalia with scattered open lesions consistent with HSV. Thin white vaginal discharge noted in the vaginal vault. No bleeding. EXTREMITIES: No peripheral edema. SKIN: No rash. Warm, dry, and intact. NEURO: No focal neurologic deficits. Labs Reviewed HCG, URINE, QUALITATIVE - Abnormal Result Value HCG, Urine POSITIVE (*) URINALYSIS WITH REFLEX CULTURE AND MICROSCOPIC - Abnormal Color, Urine Yellow Appearance, Urine Turbid (*) Specific [place], Urine 1.048 (*) pH, Urine 6.0 Protein, Urine 30 (1+) (*) Glucose, Urine OVER (4+) (*) Blood, Urine 0.03 (TRACE) (*) Ketones, Urine 100 (3+) (*) Bilirubin, Urine NEGATIVE Urobilinogen, Urine 2 (1+) (*) Nitrite, Urine 2+ (*) Leukocyte Esterase, Urine 500 Zonia/ L (*) Narrative: OVER is reported when the result is greater than the clinically reportable range. MICROSCOPIC ONLY, URINE - Abnormal WBC, Urine >50 (*) RBC, Urine >20 (*) Squamous Epithelial Cells, Urine 10-25 (FEW) Bacteria, Urine 4+ (*) Mucus, Urine FEW HUMAN CHORIONIC GONADOTROPIN, SERUM QUANTITATIVE - Abnormal HCG, Beta-Quantitative 2,171 (*) Narrative: Total HCG measurement is performed using the [place] Access Immunoassay which detects intact HCG and free beta HCG subunit. This test is not indicated for use as a tumor marker. HCG testing is performed using a different test methodology at [facility] than other [facility]. Direct result comparison should only be made within the same method. C. TRACHOMATIS + N. GONORRHOEAE, AMPLIFIED - Normal Neisseria gonorrhea,Amplified Not Detected Chlamydia trachomatis, Amplified Not Detected URINE CULTURE URINALYSIS WITH REFLEX CULTURE AND MICROSCOPIC Narrative: The following orders were created for panel order Urinalysis with Reflex Culture and Microscopic. Procedure Abnormality Status --------- ------ Urinalysis with Reflex C...[[id number]] Abnormal Final result Extra Urine Bolton Tube[[id number]] Please view results for these tests on the individual orders. EXTRA URINE BOLTON TUBE No orders to display Medical Decision Making ED COURSE: This patient was seen and examined by myself independently. She is concerned for today, however when I review her old charts I do note that she has an appointment with OB on 1128with a phone open to her family physician that she recently found out that she was . She then admits to me that she was in the emergency department at another hospital several days ago, whereshe was found to be and had an ultrasound that did not show any evidence of ectopic however they had recommended that she have a repeat quant in 72 hours as it was low in the 400s at that time. She is also found to be having herpes outbreak at this time, states that she had been t reated in the past for herpes after having a positive blood test. Urine is infected tonight. She istreated with p.o. Keflex. Also treated with acyclovir for the herpes outbreak. Gonorrhea and Chlamydia testing are negative. Her quant test is up to 2,171 today. Advised to continue to follow with her OB appointment at the end of the month, follow-up with her PCP earlier as needed. Recommend return to ED for any new or worsening symptoms. She is discharged home in stable condition with computer instructions given. Differential Diagnoses Considered: STD, UTI, , HSV Chronic Medical Conditions Significantly Affecting Care: see above External Records Reviewed: I reviewed recent and relevant outside records including: PCP notes, prior discharge summary, previous radiologic studies Diagnostic testing considered: urine Escalation of Care: Appropriate for outpatient management Prescription Drug Consideration: Keflex, acyclovir DIAGNOSTIC IMPRESSION: #1 UTI in first trimester #2 herpes simplex outbreak RORY Patel 04/18/242139 [facility] Work Phone: 1(805) 894-474211-07-2024 Telephone encounter Note* Telephone Encounter - Julia Cardona RN - 04/15/2024 3:52 PM EST Patient has appt - closing encounter. Julia Cardona RN [facility]11-07-2024 Miscellaneous Notes* Telephone Encounter - Julia Cardona RN - 04/15/2024 3:52 PM EST Patient has appt - closing encounter. Julia Cardona RN * Telephone Encounter - Idania Murphy RN - 04/15/2024 2:00 PM EST Left message to call office. PSS: Please attempt to call patient also to schedule New OB. Thank you. Idania Murphy RN * Telephone Encounter - Julia Cardona RN - 04/15/2024 11:03 AM EST Name and identified. LMP? 03/13/24 4w5d When did you have a + test? This week PNV? Not yet Pelvic pain? Was seen in ED in [facility] yesterday for sharp left sided pain and was told is not ectopic. Was told US shows a cyst in her uterus. Reports pain is much better. Vaginal bleeding? Spotting last week, resolved. Nausea? mild Vomiting? no Any medical history that can effect the ? First born (7yo) has genetic disorders, cannot recall the name. H/o miscarriage. Type 2 DM, takes metformin, humalog, and lantus. Has Dexcom. Has reached out to her PCP regarding . Takes Buspar and Prozac. Has reviewed her meds with her psychiatrist. Office/provider patient wishes to establish care to? Dr Eliel Zarco Patient aware to sign up for My Chart if she does not already have it, so she can receive the carecompanion messages. Will forward this encounter to the schedulers in this office. Julia Cardona RN * Telephone Encounter - Julia Cardona RN - 04/14/2024 8:34 AM EST Call placed to patient to triage for new OB appt. Left message for patient to call back Julia Cardona RN * Telephone Encounter - Julia Cardona RN - 04/14/2024 8:33 AM EST ----- Message from Paulo Melvin sent at 04/14/2024 8:11 AM EST ----- Regarding: MEDICAL QUESTION Patient has been identified by name and Date of : Yes Patient: Melissa Kaur Date of : 1995 Provider for this encounter : HAROLDO Byrne MD Reason for call: Triage Was an appointment scheduled: No Reason for requesting visit (RFV/signs and symptoms/diagnosis) : NEW OB PATIENT, LMP 03/13/24, ANSWERED YES TO MEDICAL QUESTION. PT HAS DIABETES, AND GENETIC DISORDERS Person calling: self Return call to: self Call patient at: at home [phone] (home) [phone] (cell) Payor: [employer] / Plan: [facility] MEDIC[facility] / Product Type: Medicare / Paulo Hodges documented in this encounterPark[facility] Telephone encounter Note * Telephone Encounter - Idania Murphy RN - 04/15/2024 2:00 PM EST Left message to call office. PSS: Please attempt to call patient also to schedule New OB. Thank you. Idania Murphy RN [facility]11-07-2024 Telephone encounter Note* Telephone Encounter - Julia Cardona RN - 04/15/2024 11:03 AM EST Name and identified. LMP? 03/13/24 4w5d When did you have a + test? This week PNV? Not yet Pelvic pain? Was seen in ED in [facility] yesterday for sharp left sided pain and was told is not ectopic. Was told US shows a cyst in her uterus. Reports pain is much better. Vaginal bleeding? Spotting last week, resolved. Nausea? mild Vomiting? no Any medical history that can effect the ? First born (7yo) has genetic disorders, cannot recall the name. H/o miscarriage. Type 2 DM, takes metformin, humalog, and lantus. Has Dexcom. Has reached out to her PCP regarding . Takes Buspar and Prozac. Has reviewed her meds with her psychiatrist. Office/provider patient wishes to establish care to? Dr Eliel Zarco Patient aware to sign up for My Chart if she does not already have it, so she can receive the carecompanion messages. Will forward this encounter to the schedulers in this office. Julia Cardona RN [facility]11-07-2024 NoteDischarge Instructions Discharge Summary [address] [place] [address] [phone] 04/14/2024 Patient: MELISSA KAUR Sex: Female : 1995 Age: 29y Thank you for visiting [facility]. You have been evaluated today by Milly Ji D.O. for the following condition(s): Principal Diagnosis First trimester ; positive test in emergency department. Ultrasound was performed but could not determine the location of the . INSTRUCTIONS No strenuous activity. (Return here to have quantitative hCG drawn on 04/17/2024.). Warnings: GENERAL WARNINGS: Return or contact your physician immediately if your condition worsens or changes unexpectedly, if not improving as expected, or if other problems arise. Understanding of the discharge instructions verbalized by patient. Follow-up with: Channing Nixon MD, [facility], Family Care, , [address] [facility], [place] [address]. Follow up in four days even if well. Call for an appointment. Reason for referral: evaluation and treatment. Summary of care provided to patient. Jon Calvert MD, [facility], Women's [facility], Phone: [phone], [address] [place] [address]. Follow up in four days even if well. Call for an appointment. Reason for referral: evaluation and treatment. Summary of care provided to patient. 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 [address] [phone] 04/14/2024 Patient: MELISSA KAUR Sex: Female : 1995 Age: 29y Thank you for visiting [facility]. You have been evaluated today by Milly Ji D.O. for the following condition(s): Principal Diagnosis First trimester ; positive test in emergency department. Ultrasound was performed but could not determine the location of the . INSTRUCTIONS No strenuous activity. (Return here to have quantitative hCG drawn on 04/17/2024.). Warnings: GENERAL WARNINGS: Return or contact your physician immediately if your condition worsens or changes unexpectedly, if not improving as expected, or if other problems arise. Understanding of the discharge instructions verbalized by patient. Follow-up with: Channing Nixon MD, [facility], [facility], , [address] [place] [id number]. Follow up in four days even if well. Call for an appointment. Reason for referral: evaluation and treatment. Summary of care provided to patient. Jon Calvert MD, [facility], Women[facility], Phone: [phone], [address] [place] [address] 2 of 5 Discharge Instructions [id number]. Follow up in four days even if well. Call for an appointment. Reason for referral: evaluation and treatment. Summary of care provided to patient. ADDITIONAL INFORMATION Your exam today shows that you are . symptoms During your body's hormones change. This causes physical and emotional changes. This is normal. Knowing what to expect is important for your piece of mind and so you know when to seek help for a problem. Here are some of the most common symptoms: Morning sickness or nausea. This can happen any time of the day or night. Tender, swollen breasts Need to urinate frequently Tiredness or fatigue Dizziness Indigestion or heartburn Food cravings or turn-offs Constipation Emotional changes. This can range from anxiety to excitement to depression. 3 of 5 Discharge Instructions General care for a healthy Here are things you can do to help make sure your baby is born healthy: Rest when you feel tired. This is especially true in the later months of . Drink more fluids. Your body needs more fluids than you may be used to. Drink 8 to10 glasses of juice, milk, or water every day. Eat well-balanced meals. Eat at regular times to give your body enough protein. You can expect to gain about 30 pounds during the . Don't try to diet or lose weight while you are . Take a vitamin every day. This helps you meet the extra nutritional needs of . Don't take any other medicine during your unless your healthcare provider tells you to. This includes prescription medicines and those you buy over the counter. Many medicines can harm the growing baby. If you have nausea or vomiting, don't eat greasy or fried foods. Eat several smaller meals throughout the day rather than 3 large meals. If you smoke, you must stop. The nicotine you breathe in goes right to the baby. Stay away from alc (more content not included)...[facility] 04-14-2024 Telephone encounter Note* Telephone Encounter - Julia Cardona RN - 04/14/2024 8:34 AM EST Call placed to patient to triage for new OB appt. Left message for patient to call back Julia Cardona RN [facility]11-06-2024 Telephone encounter Note* Telephone Encounter - Julia Cardona RN - 04/14/2024 8:33 AM EST ----- Message from Paulo Melvin sent at 04/14/2024 8:11 AM EST ----- Regarding: MEDICAL QUESTION Patient has been identified by name and Date of : Yes Patient: Melissa Kaur Date of : 1995 Provider for this encounter : HAROLDO Byrne MD Reason for call: Triage Was an appointment scheduled: No Reason for requesting visit (RFV/signs and symptoms/diagnosis) : NEW OB PATIENT, LMP 03/13/24, ANSWERED YES TO MEDICAL QUESTION. PT HAS DIABETES, AND GENETIC DISORDERS Person calling: self Return call to: self Call patient at: at home [phone] (home) [phone] (cell) Pay[facility] / Plan: ALLEN [employer]EN MEDICARE / Product Type: Medicare / Paulo Hodges [facility]08-16-2024 History of Present illness Narrative* Jamari Byrne MD - 01/23/2024 4:00 PM EDT Images from the original note were not included. Subjective Patient ID: Hoda Kaur is a 28 y.o. female who presents for Diabetes (1 mo; started on the humalog quik pen until 01/08). Diabetes Diabetic Type II dx at age 14 A1c 10.2% No blood sugars to review however today brought in log sheet reveiwed and looks great Has dexcom but states prefers to just stick finger Cont to loose weight No low bs rxn Cont lantus 10 and humalog 4 bidac Has had upper teeth pulled October 2 Will be getting dentures soon possibly 2 weeks Diet is very limited eating soft foods smoking now at [address] Jackson on caplyta Has been fighting manic episodes Neuropathy and sob with asthma would like handicap placard given for 1 year Stated I would like her to exercise more Needs ref on albu Seen by derm taking elidel and clobetasol Review of Systems Objective BP 110/70 Pulse 98 Wt 75.5 kg (166 lb 8 oz) LMP 01/13/2024 SpO2 98% BMI 30.45 kg/m Physical Exam Vitals reviewed. Constitutional: Appearance: Normal appearance. HENT: Head: Normocephalic and atraumatic. Eyes: Conjunctiva/sclera: Conjunctivae normal. Cardiovascular: Rate and Rhythm: Normal rate and regular rhythm. Pulmonary: Effort: Pulmonary effort is normal. Breath sounds: Normal breath sounds. Musculoskeletal: Cervical back: Neck supple. Skin: General: Skin is warm and dry. Neurological: General: No focal deficit present. Mental Status: She is alert and oriented to person, place, and time. Psychiatric: Mood and Affect: Mood normal. Behavior: Behavior normal. Thought Content: Thought content normal. Judgment: Judgment normal. Assessment/Plan Diagnoses and all orders for this visit: Exercise-induced asthma (HHS-HCC) - Disability Placard - albuterol 90 mcg/actuation inhaler; INHALE 1 TO 2 PUFFS EVERY 6 HOURS NEEDED Hyperglycemia due to diabetes mellitus (Multi) - Hemoglobin A1C; Future Bipolar depression (Multi) Necrobiosis lipoidica F/u 3 months documented in this [facility] Work Phone: 1(330) 817-596207-18-2024 History of Present illness Narrative* Jamari Byrne MD - 12/25/2023 4:20 PM EDT Subjective Patient ID: Hoda Kaur is a 28 y.o. female who presents for Follow-up (Patient states she is here for her routine diabetic check-up. Patient denies any issues at this time. Desires to discuss possible dermatology referral.). HPI Diabetic Type II dx at age 14 A1c 10.2% No blood sugars to review Does not have dexcom on Has not eaten today 430 pm Has had upper teeth pulled October 2 Will be getting dentures soon Has lost weight 17 pounds Diet is very limited eating soft foods smoking now at [address] Jackson on caplyta Has been fighting manic episodes Review of Systems Objective BP 112/70 Pulse 87 Ht 1.575 m (5' 2) Wt 77.3 kg (170 lb 8 oz) SpO2 97% Comment: RA BMI 31.18 kg/m Physical Exam Constitutional: Appearance: She is obese. Skin: Comments: Left davila with raised hyperpigmentation Neurological: Mental Status: She is alert. Psychiatric: Mood and Affect: Mood normal. Behavior: Behavior normal. Thought Content: Thought content normal. Judgment: Judgment normal. Assessment/Plan Diagnoses and all orders for this visit: Necrobiosis lipoidica - Referral to Dermatology Hyperglycemia due to diabetes mellitus (Multi) - insulin aspart (NovoLOG Flexpen U-100 Insulin) 100 unit/mL (3 mL) pen; Inject 4 Units under the skin 3 times a day before meals. Take as directed per insulin instructions. - pen needle, diabetic 31 gauge x 5/16 needle; Use to inject 4 times per day documented in this [facility] Work Phone: 1(877) 489-628804-08-2024 History of Present illness Narrative* Jamari Byrne MD - 09/15/2023 10:20 AM EDT Subjective Patient ID: Hoda Kaur is a 28 y.o. female who presents for Diabetes (2 mo/03/11/23 A1C 11.6, labs were not done) and Necrobiosis lipoidica (2 mo). Diabetes Diabetic Type II dx at age 14 A1c was 8.9% now 11.6 Uses dexcom sensor chanaged every 10 days transmitter good for 90 days Core Loader used instead of smart phone Trulicity 1.5 mg weekly Gained 3 pounds since last visit s Plans on walking in the better weather At 110 feels luigi Has neuropathy Up on smoking now at 10 cig per day Stress is high Feels Manic Not sleeping well Dr Jackson on latuda 40 mg and having trouble with thoughts Counseling Tirso Pollock just meet last week Tried reading and distraction Wants to run away and end it all Life neighbor is handful with smoking pot Upsets here Boyfriend wants to also Stress financally Necrobiosis lipoidica will start ultravate Left davila is getting better Abdomen red spot for 1 month no drainage Asthma as albuterol red inhaler generic but states not covered If A1c is not at goal will start mealtime insulin Review of Systems Objective BP 124/80 (BP Location: Left arm, Patient Position: Sitting) Pulse 110 Temp 36.7 C (98.1 F) Wt 86.7 kg (191 lb 1.6 oz) SpO2 100% BMI 34.46 kg/m Physical Exam Vitals reviewed. Constitutional: General: She is not in acute distress. Appearance: Normal appearance. HENT: Head: Normocephalic and atraumatic. Eyes: Conjunctiva/sclera: Conjunctivae normal. Cardiovascular: Rate and Rhythm: Normal rate and regular rhythm. Heart sounds: No murmur heard. Pulmonary: Effort: Pulmonary effort is normal. Breath sounds: Normal breath sounds. Abdominal: Palpations: There is no mass. Lymphadenopathy: Cervical: No cervical adenopathy. Skin: General: Skin is warm and dry. Comments: Left davila with hyperpigmented hypertrophy Midline abd panniculus with red 1 cm palpable subcutonous nodule hard no fluctuance Neurological: General: No focal deficit present. Mental Status: She is alert and oriented to person, place, and time. Psychiatric: Mood and Affect: Mood normal. Judgment: Judgment normal. Assessment/Plan Diagnoses and all orders for this visit: Sebaceous cyst - doxycycline (Vibramycin) 100 mg capsule; Take 1 capsule (100 mg) by mouth 2 times a day for 10 days. Take with at least 8 ounces (large glass) of water, do not lie down for 30 minutes after Hyperglycemia due to diabetes mellitus ([facility]) - metFORMIN (Glucophage) 1,000 mg tablet; Take 1 tablet (1,000 mg) by mouth 2 times a day. - glipiZIDE (Glucotrol) 5 mg tablet; Take 1 tablet (5 mg) by mouth 2 times a day. Exercise-induced asthma - albuterol 90 mcg/actuation inhaler; INHALE 1 TO 2 PUFFS EVERY 6 HOURS NEEDED documented in this [facility] Work Phone: 1(267) 957-986203-12-2024 History of Present illness Narrative* Mary Blackwell PA - 08/19/2023 10:20 AM EDT This note was created using Authentic8riter. Subjective Melissa Kaur is a 28 year old female. HPI 28-year-old female presents for dental pain and left ear pain. Patient states that she has periodontal disease and states her wisdom teeth are growing in abnormally. She saw her dentist back in June and was referred to an oral surgeon. She states she has an appointment with oral surgery at the end of September. Patient states that she has been having left sided lower dental pain for the past few months on and off. She states is gotten worse recently. She states the pain radiates up towards her left ear. She denies any difficulty swallowing or breathing. No fevers. No cough congestion. No other complaint. PAST MEDICAL HISTORY Diagnosis Date Asthma Depression Gestational diabetes 12/20/2016 Gestational proteinuria, third trimester 12/20/2016 Hyperlipidemia LGA (large for gestational age) infant 12/23/2016 12/23/16 - >95% Polyhydramnios 01/01/2017 Pre-existing type 2 diabetes mellitus in in third trimester 12/12/2016 12/23/16 - admitted to [place] for glucoregulation, likely will need delivery at 37 weeks - KJ 12/12/2016 She is a Type 2 diabetic and started Insulin during the .Last HGB A1c 6.9 on 11/14/2016.She sees an pediatric physician, Dr Asif. Her records have been faxed here during the visit and are sent to [address] Gramajo review. TKRN January 14, 2017 EFW is approx 95%. Monitor closely, cons with care elsewhere, antepartum 12/12/2016 12/12/2016Patient is transferring care from [facility]. She states she has moved from [place] to [place] and wishes to be seen here.There is some notations by her previous doctor ofnon-compliance issues with keeping appointments and diabetic diet/Insulin dosages. She states she was seen at the [facility] 11/18 for decreased movement and then again about the 3rd we Recurrent UTI Type 2 diabetes mellitus (HCC) PAST SURGICAL HISTORY Procedure Laterality Date CHOLECYSTECTOMY ALLERGIES Aluminum-Magnesium Hydroxide, Aripiprazole, Quetiapine, Promethazine, Reglan [Metoclopramide], Zofran [Ondansetron], and Zoloft [Sertraline] MEDICATIONS metFORMIN (GLUCOPHAGE) 1,000 mg tablet TAKE 1 TABLET (1,000 MG) BY MOUTH IN THE MORNING AND 1 TABLET (1,000 MG) BEFORE BEDTIME. glipiZIDE (GLUCOTROL) 5 mg tablet 10 mg two times a day. dulaglutide (TRULICITY) 1.5 mg/0.5 mL pen injector Inject 3 mg subcutaneously. insulin glargine (LANTUS SOLOSTAR U-100 INSULIN) 100 unit/mL (3 mL) FLUoxetine (PROZAC) 40 mg capsule Take 40 mg by mouth. DEXCOM G6 SENSOR candice APPLY EVERY 10 DAYS DEXCOM G6 TRANSMITTER candice CHANGE DIRECTED busPIRone (BUSPAR) 10 mg tablet Take 1 tablet by mouth every afternoon. lurasidone (LATUDA) 20 mg tablet Take 40 mg by mouth daily at bedtime. albuterol HFA (PROVENTIL HFA, VENTOLIN HFA) 90 mcg/actuation inhaler Inhale 2 Puffs as instructed. amoxicillin (AMOXIL) 875 mg tablet Take 1 tablet by mouth two times a day for 5 days. fluconazole (DIFLUCAN) 150 mg tablet Take 1 tablet today, then a 2nd tablet in 72 hours, and 3rd tablet in another 72 hours. (Patient not taking: Reported on 08/19/2023) FAMILY HISTORY Problem Relation Age of Onset Hyperlipidemia Mother Diabetes Mother Hypertension Mother other (neuropathy) Mother Diabetes Father Heart Father Hypertension Father Hyperlipidemia Brother Social History Tobacco Use Smoking status: Every Day Packs/day: 0.50 Years: 14.00 Additional pack years: 0.00 Total pack years: 7.00 Types: Cigarettes Vaping Use Vaping Use: Never used Substance Use Topics Alcohol use: No Drug use: No Review of Systems Constitutional: Negative for chills and fever. HENT: Positive for dental problem and ear pain. Negative for congestion and sore throat. Respiratory: Negative for cough and shortness of breath. Cardiovascular: Negative for chest pain. Gastrointestinal: Negative for diarrhea and vomiting. Objective BP 110/80 Pulse 100 Temp 36.7 C (98.1 F) Resp 20 Wt 89 kg (196 lb 3.4 oz) LMP 07/05/2023 (Exact Date) SpO2 97% BMI 35.32 kg/m Physical Exam Vitals and nursing note reviewed. Constitutional: General: She is not in acute distress. Appearance: Normal appearance. She is not toxic-appearing. HENT: Right Ear: Tympanic membrane and ear canal normal. Left Ear: Tympanic membrane and ear canal normal. Nose: Nose normal. Mouth/Throat: Mouth: Mucous membranes are moist. Dentition: Abnormal dentition. Dental tenderness and dental caries present. Pharynx: No oropharyngeal exudate or posterior oropharyngeal erythema. Tonsils: No tonsillar exudate. Comments: Patient has abnormal dentition, dental caries, multiple missing teeth. Left lower molar tooth # 17 has cavity present and dental decay. She has tenderness around this area along with some gingival swelling. No abscess. No tongue or floor mouth swelling. Throat clear. Eyes: Conjunctiva/sclera: Conjunctivae normal. Cardiovascular: Rate and Rhythm: Normal rate and regular rhythm. Pulmonary: Effort: Pulmonary effort is normal. Breath sounds: Normal breath sounds. Neurological: Mental Status: She is alert. Assessment and Plan ASSESSMENT/PLAN: 1. Pain, dental - ICD9: 525.9, ICD10: K08.89 -Rx for amoxicillin. -Tylenol/Motrin as needed for pain. -Call dentist to try to schedule sooner appointment. Diagnosis and treatment plan were discussed and questions were answered to the patient's satisfaction. Pt acknowledged understanding of concepts and follow up plan. Specific signs and symptoms that would indicate the need for higher level of care were discussed in detail warranting prompt ER evaluation. BUDDY Mendoza [facility] History of Present illness Narrative* Sigrid Avalos MA - 07/10/2023 10:20 AM EST Diabetes Mellitus Type II, Follow-up: How often do you test your blood sugar has Dexacom G6 Her blood sugar is running in the 120's Lab Results Component Value Date HGBA1C 11.6 (H) 03/11/2023 * Jamari Byrne MD - 07/10/2023 10:20 AM EST Subjective Patient ID: Hoda Kaur is a 28 y.o. female who presents for Diabetes (1 mo). Diabetes States blood sugars to the 120 Needs dental work No 200s No low bs reactions No polyuria no polydipsia Not as tired Diabetic Type II dx at age 14 A1c was 8.9% now 11.6 Uses dexcom Trulicity 1.5 mg weekly Bs log reviewed and fbs are good since started using lantus 10 units No low bs recorded Cont to cut down on smoking now at 6 cig per day Necrobiosis lipoidica will start ultravate Left davila Has had cough today with brown mucus For now will try mucinex Review of Systems Objective BP 130/78 (BP Location: Left arm, Patient Position: Sitting) Pulse 95 Temp 36.6 C (97.8 F) Wt85.7 kg (188 lb 14.4 oz) SpO2 100% BMI 34.07 kg/m Physical Exam Vitals reviewed. Constitutional: Appearance: Normal appearance. HENT: Head: Normocephalic and atraumatic. Eyes: Conjunctiva/sclera: Conjunctivae normal. Cardiovascular: Rate and Rhythm: Normal rate and regular rhythm. Pulmonary: Effort: Pulmonary effort is normal. Breath sounds: Normal breath sounds. Musculoskeletal: Cervical back: Neck supple. Comments: Left davila with hypererythema nodules with some central atrophy in annular fashion Skin: General: Skin is warm and dry. Neurological: General: No focal deficit present. Mental Status: She is alert and oriented to person, place, and time. Psychiatric: Mood and Affect: Mood normal. Behavior: Behavior normal. Thought Content: Thought content normal. Judgment: Judgment normal. Assessment/Plan Diagnoses and all orders for this visit: Necrobiosis lipoidica - halobetasol (UltraVATE) 0.05 % cream; Apply topically 2 times a day. Hyperglycemia due to diabetes mellitus ([facility]) - Basic Metabolic Panel; Future - Hemoglobin A1C; Future documented in this [facility] Work Phone: 1(198) 325-696112-01-2023 History of Present illness Narrative* Jamari Byrne MD - 05/09/2023 11:20 AM EST Subjective Patient ID: Hoda Kaur is a 28 y.o. female who presents for Diabetes (1 mo/*Blood sugar is running high in the evening prior to taking her insulin). Diabetes diabetic Type II dx at age 14 A1c was 8.9% now 11.6 Uses dexcom Trulicity 1.5 mg weekly Bs log reviewed and fbs are good since started using lantus 10 units No low bs recorded Has not preventing Went off control Sex active Cont to cut down on smoking now at 6 cig per day Review of Systems Objective BP 118/82 (BP Location: Left arm, Patient Position: Sitting) Pulse 93 Temp 36.5 C (97.7 F) Wt88.2 kg (194 lb 8 oz) SpO2 98% BMI 35.07 kg/m Physical Exam Vitals reviewed. Constitutional: Appearance: Normal appearance. HENT: Head: Normocephalic and atraumatic. Eyes: Conjunctiva/sclera: Conjunctivae normal. Cardiovascular: Rate and Rhythm: Normal rate and regular rhythm. Pulmonary: Effort: Pulmonary effort is normal. Breath sounds: Normal breath sounds. Musculoskeletal: Cervical back: Neck supple. Skin: General: Skin is warm and dry. Neurological: General: No focal deficit present. Mental Status: She is alert and oriented to person, place, and time. Psychiatric: Mood and Affect: Mood normal. Behavior: Behavior normal. Thought Content: Thought content normal. Judgment: Judgment normal. Assessment/Plan Diagnoses and all orders for this visit: Hyperglycemia due to diabetes mellitus ([facility]) - Dexcom G4 [place] transmitter (Dexcom G6 Transmitter) device; Change as directed - Hemoglobin A1C; Future - Basic Metabolic Panel; Future F/u 2 months [facility] Phone: 1(762) 233-340112-01-2023 Instructions* Patient Instructions* Jamari Byrne MD - 05/09/2023 11:20 AM EST For facing slitter Kandace Fried [employer] [facility] Work Phone: 1(451) 696-242610-09-2023 History of Present illness Narrative* Jamari Byrne MD - 03/17/2023 11:00 AM EDT Subjective Patient ID: Hoda Kaur is a 28 y.o. female who presents for 3 month. HPI father is Lucia Byrne diabetic Type II dx at age 14 A1c was 8.9% now 11.6 Uses dexcom Trulicity 1.5 mg weekly Will not increase glipizide past 10 Added lantus but no t using States has been manic and now has dexcom on State only using meds 50% bipolar unalbe to tolerate lithium per Dr Jackson with [facility] Asthma dx 2017 EIA worse weather changes Down to 1/4 ppd Review of Systems Objective BP 110/80 Pulse (!) 111 Ht 1.586 m (5' 2.44) Wt 90.2 kg (198 lb 12.8 oz) BMI 35.85 kg/m Physical Exam Vitals reviewed. Constitutional: Appearance: Normal appearance. HENT: Head: Normocephalic and atraumatic. Eyes: Conjunctiva/sclera: Conjunctivae normal. Cardiovascular: Rate and Rhythm: Normal rate and regular rhythm. Pulmonary: Effort: Pulmonary effort is normal. Breath sounds: Normal breath sounds. Musculoskeletal: Cervical back: Neck supple. Skin: General: Skin is warm and dry. Capillary Refill: Capillary refill takes less than 2 seconds. Dec vib sensation but present Dp 2+ 3rd toe has subungal hemorrhage No foot deformity or ulcer Neurological: General: No focal deficit present. Mental Status: She is alert and oriented to person, place, and time. Psychiatric: Mood and Affect: Mood normal. Behavior: Behavior normal. Thought Content: Thought content normal. Judgment: Judgment normal. Assessment/Plan Diagnoses and all orders for this visit: Exercise-induced asthma - albuterol 90 mcg/actuation inhaler; INHALE 1 TO 2 PUFFS EVERY 6 HOURS NEEDED Hyperglycemia due to diabetes mellitus ([facility]) - dulaglutide (Trulicity) 1.5 mg/0.5 mL pen injector injection; Inject 3 mg under the skin 1 (one) time per week. - insulin glargine (Lantus Solostar U-100 Insulin) 100 unit/mL (3 mL) pen; Inject 10 Units under the skin once daily at bedtime. Take as directed per insulin instructions. - pen needle, diabetic (BD Ultra-Fine Zaira Pen Needle) 32 gauge x 5/32 needle; Use with lantus pen10 units at bedtime subcutaneous - Dexcom G4 dot lake instrument technician apprentice (Dexcom G6 Core Loader) misc; Use as instructed documented in this [facility] Work Phone: [phone]) 300-986507-07-2023 History of Present illness Narrative* Jamari Byrne MD - 12/13/2022 2:00 PM EDT Subjective Patient ID: Hoda Kaur is a 27 y.o. female who presents for 3 month. HPI father is Lucia Byrne diabetic Type II dx at age 14 a1c = 10.2 % may 2022 A1c 8.9% Uses dexcom Trulicity 1.5 mg weekly no SSE but states insurance will not approve higher dose Not using actos Will not increase glipizide past 10 Add lantus bipolar unalbe to tolerate lithium per dr Jackson with светлана asthma 2017 EIA worse weather changes Down to 1/2 ppd Feet numb buty still has some vibratory sensation Review of Systems Objective BP 118/80 Pulse 104 Ht 1.586 m (5' 2.44) Wt 92.5 kg (203 lb 14.4 oz) SpO2 97% BMI 36.77 kg/m Physical Exam Vitals reviewed. Constitutional: Appearance: Normal appearance. HENT: Head: Normocephalic and atraumatic. Eyes: Conjunctiva/sclera: Conjunctivae normal. Cardiovascular: Rate and Rhythm: Normal rate and regular rhythm. Pulses: Normal pulses. Pulmonary: Effort: Pulmonary effort is normal. Breath sounds: Normal breath sounds. Musculoskeletal: Cervical back: Neck supple. Skin: General: Skin is warm and dry. Capillary Refill: Capillary refill takes less than 2 seconds. Neurological: General: No focal deficit present. Mental Status: She is alert and oriented to person, place, and time. Psychiatric: Mood and Affect: Mood normal. Behavior: Behavior normal. Thought Content: Thought content normal. Judgment: Judgment normal. Assessment/Plan Diagnoses and all orders for this visit: Hyperglycemia due to diabetes mellitus ([facility]) - Dexcom G4 dot lake transmitter (Dexcom G6 Transmitter) device; Apply every 10 days - insulin glargine (Lantus U-100 Insulin) 100 unit/mL injection; Inject 10 Units under the skin once daily at bedtime. Take as directed per insulin instructions. - pen needle, diabetic 31 gauge x 5/16 needle; Inject nightly - Hemoglobin A1C; Future Other orders - [facility]: [phone]) 413-110303-11-2023 Instructions* Patient Instructions* Lazara Jon, - 08/17/2022 7:51 PM EST test is negative. Treating presumptively for vaginal yeast infection with prescription for Diflucan. Test for sexually transmitted diseases is pending and you will be notified if there are any positive results. * Attachments The following attachments cannot be sent through Care Everywhere. * Vaginal Yeast Infection ([place]) documented in this [id number] History of Present illness Narrative* Lazara Jon DO - 08/17/2022 7:05 PM EST PATIENT NAME: Melissa Kaur [facility]: [id number] [facility] [id number] DATE OF VISIT: 08/17/2022 DATE OF : 1995 SS: [id number] PROVIDER: Lazara Jon DO SUBJECTIVE 27 y.o. female to the clinic for complaint of Chief Complaint Patient presents with Vaginitis Itching, some burning, white discharge sometimes yellow, denies urine frequency or urgency, would like to do a STI screening also HPI: Vaginal itching and burning with white discharge and occasional yellow discharge for several days. No recent antibiotics. Diabetic. Mild intermittent uterine cramping for 1 week. No perceived fever, measured fever or febrile symptoms. She is late for her current menses. Last menstrual period started on July 16 or which is approximately 32 days ago. She does have unprotected sexual intercourse without contraception. No known exposure to STI but wants to be tested. ROS: Constitutional: Denies fever, chills, rigors, inappropriate diaphoresis. Skin: Denies rash, skin lesions. Gastrointestinal: Denies nausea, vomiting, diarrhea, abdominal pain. Musculoskeletal: Denies myalgia. Social History Socioeconomic History Marital status: Tobacco Use Smoking status: Every Day Packs/day: 0.50 Types: Cigarettes Smokeless tobacco: Never Vaping Use Vaping Use: Never used Substance and Sexual Activity Alcohol use: Not Currently Drug use: No Sexual activity: Yes Partners: Male Past Medical History: Diagnosis Date Anxiety Anxiety Bipolar 1 disorder, manic, mild (HCC) Depression Depression Diabetes mellitus (HCC) Type 2 Diabetes mellitus, type 2 (HCC) Hyperlipidemia Hypertension Migraine OCD (obsessive compulsive disorder) PTSD (post-traumatic stress disorder) Reactive airway disease Seizures (HCC) Family History Problem Relation Age of Onset Diabetes Mother Diabetes Father Heart disease Father Diabetes Maternal Grandmother Diabetes Paternal Grandmother Current Outpatient Medications on File Prior to Visit Medication Sig Dispense Refill albuterol 90 mcg/actuation inhaler Inhale 2 (two) puffs every 6 (six) hours as needed for wheezing . 1 Inhaler 2 busPIRone (BUSPAR) 10 MG tablet Take 1 (one) tablet (10 mg total) by mouth once Nightly . carBAMazepine (TEGretol XR) 200 MG 12 hr tablet Take 1 (one) tablet (200 mg total) by mouth 2 (two)times a day . 60 tablet 11 FLUoxetine (PROZAC) 40 MG capsule Take 1 (one) capsule (40 mg total) by mouth daily . lancets (freestyle) 28 gauge Misc Inject 1 each as directed daily as needed . 25 each 11 metFORMIN (GLUCOPHAGE-XR) 500 MG 24 hr tablet Take 2 (two) tablets (1,000 mg total) by mouth 2 (two) times a day with breakfast and lunch . 120 tablet 2 blood sugar diagnostic strips by Miscellaneous route daily as needed . (Patient not taking: Reported on 08/17/2022 .) 25 each 11 diphenhydrAMINE (BENADRYL) 25 mg tablet Take by mouth . No current facility-administered medications on file prior to visit. Allergies Allergen Reactions Aluminum-Magnesium Hydroxide GI Intolerance Ondansetron Hcl GI Intolerance Seroquel [Quetiapine] Shortness Of Breath SOB AND HEART RACING Reglan [Metoclopramide Hcl] Hives No Known Allergies Sertraline EXAM: BP 126/86 Pulse 96 Temp 97.7 F (36.5 C) (Tympanic) Resp 16 Ht 5' 3 Wt 87.5 kg (193 lb) LMP 07/17/2022 (Exact Date) SpO2 97% BMI 34.19 kg/m Constitutional: Vital signs reviewed. Well-appearing. No distress. Psychiatric: Mental status appropriate. Normal affect. Normal thought content. Skin: Warm and dry. No purpura, petechiae. Eyes: Conjunctiva clear. PERRL. No photophobia, icterus, excessive lacrimation, purulent drainage, blepharospasm. HENT: No hoarseness, drooling, trismus, stridor. Tympanic membranes and canals are normal. Pharynx is unremarkable. No exudate. Thorax/ Respiratory: Respiratory effort non-labored. Speaks in full sentences without apparent dyspnea. Cardiovascular: Adequate peripheral circulation. Gastrointestinal: Abdomen is soft and non-tender. No peritoneal reaction. Genitourinary: No CVA tenderness to percussion. Pelvic exam reveals no skin lesions or rash. There is moderate amount of thick adherent white discharge. Cervix is nontender. Musculoskeletal: Neck is supple. Neck has normal ROM without hesitation or pain response. Extremityfunction is grossly normal. Neurologic: Alert. Oriented. Appropriately interactive. No gross facial motor asymmetry. Eye movement is normal. Extremity motor function is grossly intact. PROCEDURE Procedures RESULTS Recent Results (from the past 168 hour(s)) POC , Urine Collection Time: 08/17/22 7:45 PM Result Value Ref Range POC Preg Test, Ur Negative Negative Internal Control Pass Diagnosis: The primary encounter diagnosis was Yeast vaginitis. Diagnoses of Late menses and Vaginal dischargewere also pertinent to this visit. Plan: 1. Yeast vaginitis fluconazole (DIFLUCAN) 150 MG tablet 2. Late menses POC , Urine CANCELED: hCG Urine, Qualitative 3. Vaginal discharge Wet prep, genital Chlamydia/GC/Trichomonas Amplified RNA No follow-ups on file. ORDERS PLACED THIS VISIT Orders Placed This Encounter Procedures Wet prep, genital Chlamydia/GC/Trichomonas Amplified RNA Chlamydia/Gonorrhoeae Amplified RNA Trichomonas vaginalis Amplified RNA POC , Urine MEDICATION LIST AT END OF VISIT Current Outpatient Medications Medication Sig Dispense Refill albuterol 90 mcg/actuation inhaler Inhale 2 (two) puffs every 6 (six) hours as needed for wheezing . 1 Inhaler 2 busPIRone (BUSPAR) 10 MG tablet Take 1 (one) tablet (10 mg total) by mouth once Nightly . carBAMazepine (TEGretol XR) 200 MG 12 hr tablet Take 1 (one) tablet (200 mg total) by mouth 2 (two)times a day . 60 tablet 11 FLUoxetine (PROZAC) 40 MG capsule Take 1 (one) capsule (40 mg total) by mouth daily . lancets (freestyle) 28 gauge Misc Inject 1 each as directed daily as needed . 25 each 11 metFORMIN (GLUCOPHAGE-XR) 500 MG 24 hr tablet Take 2 (two) tablets (1,000 mg total) by mouth 2 (two) times a day with breakfast and lunch . 120 tablet 2 blood sugar diagnostic strips by Miscellaneous route daily as needed . (Patient not taking: Reported on 08/17/2022 .) 25 each 11 diphenhydrAMINE (BENADRYL) 25 mg tablet Take by mouth . fluconazole (DIFLUCAN) 150 MG tablet Take 1 tablet by mouth once today then repeat in 5 days. . 2 tablet 0 No current facility-administered medications for this visit. CLINICAL DECISION MAKING / URGENT CARE COURSE / ADDITIONAL CLINICAL COMMENTS / TREATMENT PLAN / FOLLOW UP Urine test is negative. Clinical presentation is consistent with yeast vaginitis. I will treat presumptively with Diflucan which is what patient was in favor of. Test for chlamydia, gonorrhea and trichomonas are pending as it is wet prep. Patient uses the [facility] system and will look for her results there. We will call her additionally, if there are positive test that needed a change in treatment plan. Lazara Jon 08/17/2022 documented in this [id number] History of Present illness Narrative* father is Lucia Byrne * diabetic Type II dx at age 14 * a1c = 10.2 % may 2022 * checking blood sugar daily * range x 130 per her macine question if this is correct * add actos and increase trulicity may 2022 * bipolar * unalbe to tolerate lithium * per dr Jackson with светлана * recommend starting caplyta for bipolar * asthma 2016 * EIA lasta used when chasing after cat which is her supoort animal * smokes 1.5 ppd when manic * ros * no cp [facility] Work Phone: [phone]) 154-533307-13-2022 History of Present illness NarrativePatient is a 26-year-old who comes in for a test of cure for trichomoniasis. Patient was here last week for test of cure for chlamydia. Patient reports that her partner has been treated and they havenot engaged in coitus since her diagnosis. 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 Patient reports she has not been sexually active since September. Patient reports that she has had 3 sexual partners in the last 12 months. Patient has not been using anything for contraception. Patient has no specific complaints today. Currently has no plans to become sexually active in the near future. Patient is a diabetic diagnosed at age 15. Her last hemoglobin A1c was markedly elevated. She reports that she has recently started [place] [address] [employer] Work Phone: [phone]) [phone] History of Present illness Narrative* Patient is here today for 2 mo follow up with a cc of eye infection. * Pt reports that a few weeks ago she had a large style, she went to the urgent care and was given topically but it continued to get bigger. She reports it was so swollen she could barely open her eye,she ent to see her eye dr who sent her to an opthomologist who drained it. She reports that eveningit drained even more. Cx came back Friday and she is continue with oral antibiotics and topical antibiotic. she has a follow up appt on Friday. She has a photo of when he was really bad and it was significant in size and took up hr entire eyelid practically. * She is having some worsening depression, she is currently living with her mom, she tries to be around family to afford self destructive behavior; she admit to thinking about harming herself, cutting.She is following with Dr Jackson at [facility] and seeing her counselor. She is currently on Fluoxetine 40mg po daily and buspar as needed. * DMII - she state that they were running higher in the last few weeks with this eye infection, otherwise they were between 100-150. She did not get her a1c updated prior to this appt. SHe is currently on glipizide 10mg po bid and metformin 1000mg po bid. [facility] Work Phone: [phone]) [phone] History of Past illness Narrative* Problem Noted Date Diagnosed Date Resolved Date Polyhydramnios 01/01/2017 07/11/2023 Threatened premature labor in third trimester 12/27/19 17 07/11/2023 Overview: December 26, 2016 Received betamethasone on 12/23 and 12/24/16. Piper Julian MD LGA (large for gestational age) infant 12/23/2016 07/11/2023 Overview: 12/23/16 - >95% Gestational proteinuria, third trimester 12/20/2016 07/11/2023 Overview: 12/20/16 - 24hr urine from [facility] on 12/13/16 was 323mg, BP & preE labs normal - KJ Gestational diabetes 12/20/2016 024 with care elsewhere, antepartum 12/12/2016 07/11/2023 Overview: 12/12/2016Patient is transferring care [facility]. She states she has moved from [place] to [place] and wishes to be seen here.There is some notations by her previous doctor of non-compliance issues with keeping appointments and diabetic diet/Insulin dosages. She states she was seen at the [facility] 11/18 for decreased movement and then again about the 3rd week of October for threatened PTL. She states she was given Brethine in the hospital and sent home on no medications. She was last seen by her OB in [place] yesterday for [place] contractions. She denies any bleeding or LOF. Baby has been active. Some [place] contractions occasionally. Discussed with Dr Schulte and patient advised to monitor pain. If increases to call/come in. Kick counts discussed. TKRN Pre-existing type 2 diabetes mellitus in in third trimester 12/12/2016 07/11/2023 Overview: 12/23/16 - admitted to [place] for glucoregulation, likely will need delivery at 37 weeks - KJ 12/12/2016 She is a Type 2 diabetic and started Insulin during the .Last HGB A1c 6.9 on 11/14/2016.She sees an pediatric physician, Dr Asif. Her records have been faxed here during the visit and are sent to [address] Gramajo review. TKRN January 14, 2017 EFW is approx 95%. Monitor closely, consider early delivery per MFM. Piper Julian MD documented as of this encounter (statuses as of 08/19/2023) [facility]* Diagnosis Yeast vaginitis- Primary Late menses Other disorder of menstruation and other abnormal bleeding from female genital tract Vaginal discharge Leukorrhea, not specified as infective documented in this encounter [facility] note* Diagnosis Hyperglycemia due to diabetes mellitus (CMS/HCC) documented in this [facility] Work Phone: Evaluation note* Diagnosis Exercise-induced asthma- Primary Exercise induced bronchospasm Hyperglycemia due to diabetes mellitus (CMS/HCC) documented in this [facility] Work Phone: Evaluation note* Diagnosis Hyperglycemia due to diabetes mellitus (CMS/HCC) documented in this encounter [facility] Work Phone: Evaluation note* Diagnosis Necrobiosis lipoidica- Primary Degenerative skin disorder Hyperglycemia due to diabetes mellitus (CMS/HCC) documented in this [facility] Work Phone: Evaluation note* Diagnosis Pain, dental- Primary Unspecified disorder of the teeth and supporting structures [facility]* Diagnosis Sebaceous cyst- Primary Hyperglycemia due to diabetes mellitus (CMS/HCC) Exercise-induced asthma Exercise induced bronchospasm documented in this encounter [facility] Work Phone: Evaluation note* Diagnosis Urinary tract infection in mother during first trimester of (HHS-HCC)- Primary Herpes simplex vulvovaginitis documented in this [facility] Work Phone: Evaluation note* Diagnosis Bacterial vaginosis- Primary Unspecified vaginitis and vulvovaginitis Less than 8 weeks gestation of ([facility]-HCC) documented in this [facility] Work Phone: Evaluation note* Diagnosis Type 2 diabetes mellitus complicating , antepartum, first trimester- Primary Insulin controlled gestational diabetes mellitus (GDM) in first trimester High-risk , first trimester [facility]* Diagnosis Bipolar depression (Multi)- Primary Bipolar I disorder, most recent episode (or current) depressed, unspecified Hyperglycemia due to diabetes mellitus (Multi) Cigarette nicotine dependence with other nicotine-induced disorder documented in [facility] Work Phone: Evaluation note* Diagnosis Encounter for supervision of high risk in first trimester, antepartum- Primary 7 weeks gestation of state, incidental with uncertain dates in first trimester Unplanned state, incidental Obesity affecting in first trimester, unspecified obesity type Lost custody of children Legal circumstances UTI (urinary tract infection) in , antepartum Infections of genitourinary tract antepartum History of herpes genitalis Personal history of other infectious and parasitic disease H/O macrosomia in in prior , currently with other poor obstetric history History of polyhydramnios Personal history of other genital system and obstetric disorders Pre-existing type 2 diabetes mellitus in in first trimester Diabetes mellitus of mother, complicating , childbirth, or the puerperium, unspecified as to episode of care History of bipolar disorder Personal history of affective disorder History of recurrent UTI (urinary tract infection) Personal history of urinary (tract) infection Tobacco smoking complicating in first trimester Tobacco use disorder complicating , childbirth, or the puerperium, antepartum condition or complication History of alcohol abuse Nondependent alcohol abuse, in remission History of asthma Personal history of other diseases of respiratory system 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 History of hemorrhage Personal history of diseases of blood and blood-forming organs History of pre-eclampsia Personal history of other genital system and obstetric disorders Financial insecurity History of miscarriage Personal history of other genital system and obstetric disorders Vaginal discharge during in first trimester History of trichomoniasis Personal history of other infectious and parasitic disease Family history of autism Family history of psychiatric condition Nausea and vomiting during History of depression Screening for cervical cancer Screening for malignant neoplasm of the cervix [facility] Diagnosis Insulin controlled gestational diabetes mellitus (GDM) in first trimester [facility]* Diagnosis Bacterial vaginosis- Primary Vaginitis and vulvovaginitis, unspecified documented in this encounter [facility] note* Diagnosis Insulin controlled gestational diabetes mellitus (GDM) in first trimester [facility]* Diagnosis Necrobiosis lipoidica- Primary Degenerative skin disorder Hyperglycemia due to diabetes mellitus (Multi) documented in this [facility] Work Phone: Evaluation note* Diagnosis Abdominal pain during in first trimester (HHS-HCC)- Primary documented in this [facility] Work Phone: Evaluation note* Diagnosis Exercise-induced asthma (HHS-HCC)- Primary Exercise induced bronchospasm Hyperglycemia due to diabetes mellitus (Multi) Bipolar depression (Multi) Bipolar I disorder, most recent episode (or current) depressed, unspecified Necrobiosis lipoidica Degenerative skin disorder documented in this encounter [facility] Work Phone: Evaluation note* Diagnosis 10 weeks gestation of - Primary state, incidental Encounter for supervision of high risk in first trimester, antepartum Pre-existing type 2 diabetes mellitus in in first trimester Diabetes mellitus of mother, complicating , childbirth, or the puerperium, unspecified as to episode of care Obesity affecting in first trimester, unspecified obesity type 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 [facility]* Diagnosis Insulin controlled gestational diabetes mellitus (GDM) in first trimester [facility]* Diagnosis Insulin controlled gestational diabetes mellitus (GDM) in first trimester [facility]* Diagnosis Insulin controlled gestational diabetes mellitus (GDM) in first trimester [facility]* Diagnosis Encounter for screening for malformation using ultrasound- Primary 13 weeks gestation of state, incidental [facility]* Diagnosis H/O macrosomia in infant in prior , currently with other poor obstetric history Pre-existing type 2 diabetes mellitus in in first trimester Diabetes mellitus of mother, complicating , childbirth, or the puerperium, unspecified as to episode of care History of pre-eclampsia Personal history of other genital system and obstetric disorders [facility]* Diagnosis Pre-existing type 2 diabetes mellitus in in second trimester- Primary Diabetes mellitus of mother, complicating , childbirth, or the puerperium, unspecified as to episode of care [facility]* Diagnosis Influenza A- Primary Influenza with other respiratory manifestations documented in this encounter [facility] Work Phone: Evaluation note* Diagnosis Pre-existing type 2 diabetes mellitus in in first trimester- Primary Diabetes mellitus of mother, complicating , childbirth, or the puerperium, unspecified as to episode of care History of pre-eclampsia Personal history of other genital system and obstetric disorders H/O macrosomia in infant in prior , currently with other poor obstetric history 17 weeks gestation of state, incidental Encounter for screening for malformation using ultrasound * Assessment & Plan Note - Pooja Latham MD - 07/13/2024 10:47 AM EST Associated Problem(s): History of pre-eclampsia BP normal today * Assessment & Plan Note - Pooja Latham MD - 07/13/2024 10:46 AM EST Associated Problem(s): Pre-existing type 2 diabetes mellitus in in first trimester Detailed anatomic survey 20w echocardiogram 22-24w (scheduled) Monthly growth US testing at 32 weeks documented [facility] this encounter [facility]* Diagnosis Pre-existing type 2 diabetes mellitus in in first trimester- Primary Diabetes mellitus of mother, complicating , childbirth, or the puerperium, unspecified as to episode of care History of pre-eclampsia Personal history of other genital system and obstetric disorders H/O macrosomia in in prior , currently with other poor obstetric history 17 weeks gestation of state, incidental Encounter for screening for malformation using ultrasound Obesity affecting in first trimester, unspecified obesity type- Primary 17 weeks gestation of state, incidental Encounter for anatomic survey Herpes simplex type 2 (HSV-2) infection affecting , antepartum, unspecified trimester with uncertain dates in first trimester documented in this encounter [facility] note* Diagnosis Pre-existing type 2 diabetes mellitus in in first trimester- Primary Diabetes mellitus of mother, complicating , childbirth, or the puerperium, unspecified as to episode of care History of pre-eclampsia Personal history of other genital system and obstetric disorders H/O macrosomia in infant in prior , currently with other poor obstetric history 17 weeks gestation of state, incidental Encounter for screening for malformation using ultrasound Insulin controlled gestational diabetes mellitus (GDM) in first trimester [facility] Diagnosis Pre-existing type 2 diabetes mellitus in in first trimester- Primary Diabetes mellitus of mother, complicating , childbirth, or the puerperium, unspecified as to episode of care History of pre-eclampsia Personal history of other genital system and obstetric disorders H/O macrosomia in in prior , currently with other poor obstetric history 17 weeks gestation of state, incidental Encounter for screening for malformation using ultrasound Vulvar irritation- Primary Other specified noninflammatory disorder of vulva and perineum [facility] Diagnosis Pre-existing type 2 diabetes mellitus in in first trimester- Primary Diabetes mellitus of mother, complicating , childbirth, or the puerperium, unspecified as to episode of care History of pre-eclampsia Personal history of other genital system and obstetric disorders H/O macrosomia in in prior , currently with other poor obstetric history 17 weeks gestation of state, incidental Encounter for screening for malformation using ultrasound Type 2 diabetes mellitus complicating , antepartum, second trimester- Primary Insulin controlled gestational diabetes mellitus (GDM) in first trimester High-risk , second trimester [facility] Diagnosis Pre-existing type 2 diabetes mellitus in in first trimester- Primary Diabetes mellitus of mother, complicating , childbirth, or the puerperium, unspecified as to episode of care History of pre-eclampsia Personal history of other genital system and obstetric disorders H/O macrosomia in in prior , currently with other poor obstetric history 17 weeks gestation of state, incidental Encounter for screening for malformation using ultrasound Encounter for anatomic survey- Primary 21 weeks gestation of state, incidental Pre-existing type 2 diabetes mellitus in in first trimester Diabetes mellitus of mother, complicating , childbirth, or the puerperium, unspecified as to episode of care Obesity affecting in first trimester, unspecified obesity type- Primary Herpes simplex type 2 (HSV-2) infection affecting , antepartum, unspecified trimester Pre-existing type 2 diabetes mellitus in in first trimester Diabetes mellitus of mother, complicating , childbirth, or the puerperium, unspecified as to episode of care 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 Encounter for supervision of high risk in first trimester, antepartum 21 weeks gestation of state, incidental Pre-existing type 2 diabetes mellitus in in first trimester- Primary Diabetes mellitus of mother, complicating , childbirth, or the puerperium, unspecified as to episode of care Obesity affecting in first trimester, unspecified obesity type History of pre-eclampsia Personal history of other genital system and obstetric disorders H/O macrosomia in in prior , currently with other poor obstetric history History of bipolar disorder Personal history of affective disorder 21 weeks gestation of state, incidental Encounter for anatomic survey documented in this encounter [facility] note* Diagnosis Pre-existing type 2 diabetes mellitus in in first trimester- Primary Diabetes mellitus of mother, complicating , childbirth, or the puerperium, unspecified as to episode of care History of pre-eclampsia Personal history of other genital system and obstetric disorders H/O macrosomia in infant in prior , currently with other poor obstetric history 17 weeks gestation of state, incidental Encounter for screening for malformation using ultrasound Obesity affecting in first trimester, unspecified obesity type- Primary Herpes simplex type 2 (HSV-2) infection affecting , antepartum, unspecified trimester Pre-existing type 2 diabetes mellitus in in first trimester Diabetes mellitus of mother, complicating , childbirth, or the puerperium, unspecified as to episode of care 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 Encounter for supervision of high risk in first trimester, antepartum 21 weeks gestation of state, incidental Pre-existing type 2 diabetes mellitus in in first trimester- Primary Diabetes mellitus of mother, complicating , childbirth, or the puerperium, unspecified as to episode of care Obesity affecting in first trimester, unspecified obesity type History of pre-eclampsia Personal history of other genital system and obstetric disorders H/O macrosomia in in prior , currently with other poor obstetric history History of bipolar disorder Personal history of affective disorder 21 weeks gestation of state, incidental Encounter for anatomic survey * Assessment & Plan Note - Pooja Latham MD - 08/10/2024 9:41 AM ESTAssociated Problem(s): H/O macrosomia in in prior , currently Monthly growth assessment, measuring 11%ile at anatomy US today * Assessment & Plan Note - Pooja Latham MD - 08/10/2024 9:40 AM ESTAssociated Problem(s): Obesity affecting in first trimester TWG around 13 lbs from chart review documented in this encounter [facility] note* Diagnosis Pre-existing type 2 diabetes mellitus in in first trimester- Primary Diabetes mellitus of mother, complicating , childbirth, or the puerperium, unspecified as to episode of care History of pre-eclampsia Personal history of other genital system and obstetric disorders H/O macrosomia in infant in prior , currently with other poor obstetric history 17 weeks gestation of state, incidental Encounter for screening for malformation using ultrasound Obesity affecting in first trimester, unspecified obesity type- Primary Herpes simplex type 2 (HSV-2) infection affecting , antepartum, unspecified trimester Pre-existing type 2 diabetes mellitus in in first trimester Diabetes mellitus of mother, complicating , childbirth, or the puerperium, unspecified as to episode of care 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 Encounter for supervision of high risk in first trimester, antepartum 21 weeks gestation of state, incidental Pre-existing type 2 diabetes mellitus in in first trimester- Primary Diabetes mellitus of mother, complicating , childbirth, or the puerperium, unspecified as to episode of care Obesity affecting in first trimester, unspecified obesity type History of pre-eclampsia Personal history of other genital system and obstetric disorders H/O macrosomia in infant in prior , currently with other poor obstetric history History of bipolar disorder Personal history of affective disorder 21 weeks gestation of state, incidental Encounter for anatomic survey * Assessment & Plan Note - William Gramajo MD - 08/10/2024 9:48 AM ESTAssociated Problem(s): Obesity affecting in first trimester Orders: URINE OB DIP B/O OBSTETRIC ULTRASOUND WHI; Standing * Assessment & Plan Note - William Gramajo MD - 08/10/2024 9:48 AM ESTAssociated Problem(s): Herpes simplex type 2 (HSV-2) infection affecting , antepartum, unspecified trimester Orders: URINE OB DIP B/O * Assessment & Plan Note - William Gramajo MD - 08/10/2024 9:48 AM ESTAssociated Problem(s): Pre-existing type 2 diabetes mellitus in in first trimester Continue insulin per . Orders: URINE OB DIP B/O OBSTETRIC ULTRASOUND WHI; Standing * Assessment & Plan Note - William Gramajo MD - 08/10/2024 9:48 AM ESTAssociated Problem(s): Chromosome abnormality Orders: URINE OB DIP B/O [facility] Diagnosis Pre-existing type 2 diabetes mellitus in in first trimester- Primary Diabetes mellitus of mother, complicating , childbirth, or the puerperium, unspecified as to episode of care History of pre-eclampsia Personal history of other genital system and obstetric disorders H/O macrosomia in infant in prior , currently with other poor obstetric history 17 weeks gestation of state, incidental Encounter for screening for malformation using ultrasound Insulin controlled gestational diabetes mellitus (GDM) in first trimester Obesity affecting in first trimester, unspecified obesity type- Primary Herpes simplex type 2 (HSV-2) infection affecting , antepartum, unspecified trimester Pre-existing type 2 diabetes mellitus in in first trimester Diabetes mellitus of mother, complicating , childbirth, or the puerperium, unspecified as to episode of care 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 Encounter for supervision of high risk in first trimester, antepartum 21 weeks gestation of state, incidental Pre-existing type 2 diabetes mellitus in in first trimester- Primary Diabetes mellitus of mother, complicating , childbirth, or the puerperium, unspecified as to episode of care Obesity affecting in first trimester, unspecified obesity type History of pre-eclampsia Personal history of other genital system and obstetric disorders H/O macrosomia in infant in prior , currently with other poor obstetric history History of bipolar disorder Personal history of affective disorder 21 weeks gestation of state, incidental Encounter for anatomic survey [facility] Diagnosis Pre-existing type 2 diabetes mellitus in in first trimester- Primary Diabetes mellitus of mother, complicating , childbirth, or the puerperium, unspecified as to episode of care History of pre-eclampsia Personal history of other genital system and obstetric disorders H/O macrosomia in in prior , currently with other poor obstetric history 17 weeks gestation of state, incidental Encounter for screening for malformation using ultrasound Obesity affecting in first trimester, unspecified obesity type- Primary Herpes simplex type 2 (HSV-2) infection affecting , antepartum, unspecified trimester Pre-existing type 2 diabetes mellitus in in first trimester Diabetes mellitus of mother, complicating , childbirth, or the puerperium, unspecified as to episode of care 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 Encounter for supervision of high risk in first trimester, antepartum 21 weeks gestation of state, incidental Pre-existing type 2 diabetes mellitus in in first trimester- Primary Diabetes mellitus of mother, complicating , childbirth, or the puerperium, unspecified as to episode of care Obesity affecting in first trimester, unspecified obesity type History of pre-eclampsia Personal history of other genital system and obstetric disorders H/O macrosomia in in prior , currently with other poor obstetric history History of bipolar disorder Personal history of affective disorder 21 weeks gestation of state, incidental Encounter for anatomic survey Insulin controlled gestational diabetes mellitus (GDM) in first trimester [facility] Diagnosis Pre-existing type 2 diabetes mellitus in in first trimester- Primary Diabetes mellitus of mother, complicating , childbirth, or the puerperium, unspecified as to episode of care History of pre-eclampsia Personal history of other genital system and obstetric disorders H/O macrosomia in in prior , currently with other poor obstetric history 17 weeks gestation of state, incidental Encounter for screening for malformation using ultrasound Obesity affecting in first trimester, unspecified obesity type- Primary Herpes simplex type 2 (HSV-2) infection affecting , antepartum, unspecified trimester Pre-existing type 2 diabetes mellitus in in first trimester Diabetes mellitus of mother, complicating , childbirth, or the puerperium, unspecified as to episode of care 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 Encounter for supervision of high risk in first trimester, antepartum 21 weeks gestation of state, incidental Pre-existing type 2 diabetes mellitus in in first trimester- Primary Diabetes mellitus of mother, complicating , childbirth, or the puerperium, unspecified as to episode of care Obesity affecting in first trimester, unspecified obesity type History of pre-eclampsia Personal history of other genital system and obstetric disorders H/O macrosomia in in prior , currently with other poor obstetric history History of bipolar disorder Personal history of affective disorder 21 weeks gestation of state, incidental Encounter for anatomic survey Insulin controlled gestational diabetes mellitus (GDM) in first trimester [facility] Diagnosis Pre-existing type 2 diabetes mellitus in in first trimester- Primary Diabetes mellitus of mother, complicating , childbirth, or the puerperium, unspecified as to episode of care History of pre-eclampsia Personal history of other genital system and obstetric disorders H/O macrosomia in in prior , currently with other poor obstetric history 17 weeks gestation of state, incidental Encounter for screening for malformation using ultrasound Obesity affecting in first trimester, unspecified obesity type- Primary Herpes simplex type 2 (HSV-2) infection affecting , antepartum, unspecified trimester Pre-existing type 2 diabetes mellitus in in first trimester Diabetes mellitus of mother, complicating , childbirth, or the puerperium, unspecified as to episode of care 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 Encounter for supervision of high risk in first trimester, antepartum 21 weeks gestation of state, incidental Pre-existing type 2 diabetes mellitus in in first trimester- Primary Diabetes mellitus of mother, complicating , childbirth, or the puerperium, unspecified as to episode of care Obesity affecting in first trimester, unspecified obesity type History of pre-eclampsia Personal history of other genital system and obstetric disorders H/O macrosomia in infant in prior , currently with other poor obstetric history History of bipolar disorder Personal history of affective disorder 21 weeks gestation of state, incidental Encounter for anatomic survey Maternal care for (suspected) abnormality and damage, unspecified, fetus 1 [[id number]]- Primary [facility] Diagnosis Pre-existing type 2 diabetes mellitus in in first trimester ([facility])- Primary Diabetes mellitus of mother, complicating , childbirth, or the puerperium, unspecified as to episode of care History of pre-eclampsia Personal history of other genital system and obstetric disorders H/O macrosomia in infant in prior , currently ([facility]) with other poor obstetric history 17 weeks gestation of ([facility]) state, incidental Encounter for screening for malformation using ultrasound ([facility]) Obesity affecting in first trimester, unspecified obesity type ([facility])- Primary Herpes simplex type 2 (HSV-2) infection affecting , antepartum, unspecified trimester ([facility]) Pre-existing type 2 diabetes mellitus in in first trimester ([facility]) Diabetes mellitus of mother, complicating , childbirth, or the puerperium, unspecified as to episode of care 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 Encounter for supervision of high risk in first trimester, antepartum ([facility]) 21 weeks gestation of ([facility]) state, incidental Pre-existing type 2 diabetes mellitus in in first trimester ([facility])- Primary Diabetes mellitus of mother, complicating , childbirth, or the puerperium, unspecified as to episode of care Obesity affecting in first trimester, unspecified obesity type ([facility]) History of pre-eclampsia Personal history of other genital system and obstetric disorders H/O macrosomia in infant in prior , currently ([facility]) with other poor obstetric history History of bipolar disorder Personal history of affective disorder 21 weeks gestation of ([facility]) state, incidental Encounter for anatomic survey ([facility]) Encounter for anatomic survey Pre-existing type 2 diabetes mellitus in in first trimester ([facility])- Primary Diabetes mellitus of mother, complicating , childbirth, or the puerperium, unspecified as to episode of care Obesity affecting in first trimester, unspecified obesity type ([facility]) [facility] Diagnosis Exercise-induced asthma Exercise induced bronchospasm Bipolar depression (Multi) Bipolar I disorder, most recent episode (or current) depressed, unspecified documented in this encounter [facility] Work Phone: Evaluation note* Diagnosis Pre-existing type 2 diabetes mellitus in in first trimester ([facility])- Primary Diabetes mellitus of mother, complicating , childbirth, or the puerperium, unspecified as to episode of care History of pre-eclampsia Personal history of other genital system and obstetric disorders H/O macrosomia in in prior , currently ([facility]) with other poor obstetric history 17 weeks gestation of ([facility]) state, incidental Encounter for screening for malformation using ultrasound ([facility]) Obesity affecting in first trimester, unspecified obesity type ([facility])- Primary Herpes simplex type 2 (HSV-2) infection affecting , antepartum, unspecified trimester ([facility]) Pre-existing type 2 diabetes mellitus in in first trimester ([facility]) Diabetes mellitus of mother, complicating , childbirth, or the puerperium, unspecified as to episode of care 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 Encounter for supervision of high risk in first trimester, antepartum ([facility]) 21 weeks gestation of ([facility]) state, incidental Pre-existing type 2 diabetes mellitus in in first trimester ([facility])- Primary Diabetes mellitus of mother, complicating , childbirth, or the puerperium, unspecified as to episode of care Obesity affecting in first trimester, unspecified obesity type ([facility]) History of pre-eclampsia Personal history of other genital system and obstetric disorders H/O macrosomia in infant in prior , currently ([facility]) with other poor obstetric history History of bipolar disorder Personal history of affective disorder 21 weeks gestation of ([facility]) state, incidental Encounter for anatomic survey ([facility]) Encounter for anatomic survey with uncertain dates in first trimester ([facility]) [facility] Diagnosis Pre-existing type 2 diabetes mellitus in in first trimester ([facility])- Primary Diabetes mellitus of mother, complicating , childbirth, or the puerperium, unspecified as to episode of care History of pre-eclampsia Personal history of other genital system and obstetric disorders H/O macrosomia in infant in prior , currently ([facility]) with other poor obstetric history 17 weeks gestation of ([facility]) state, incidental Encounter for screening for malformation using ultrasound ([facility]) Obesity affecting in first trimester, unspecified obesity type ([facility])- Primary Herpes simplex type 2 (HSV-2) infection affecting , antepartum, unspecified trimester ([facility]) Pre-existing type 2 diabetes mellitus in in first trimester ([facility]) Diabetes mellitus of mother, complicating , childbirth, or the puerperium, unspecified as to episode of care 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 Encounter for supervision of high risk in first trimester, antepartum ([facility]) 21 weeks gestation of ([facility]) state, incidental Pre-existing type 2 diabetes mellitus in in first trimester ([facility])- Primary Diabetes mellitus of mother, complicating , childbirth, or the puerperium, unspecified as to episode of care Obesity affecting in first trimester, unspecified obesity type ([facility]) History of pre-eclampsia Personal history of other genital system and obstetric disorders H/O macrosomia in infant in prior , currently ([facility]) with other poor obstetric history History of bipolar disorder Personal history of affective disorder 21 weeks gestation of ([facility]) state, incidental Encounter for anatomic survey ([facility]) Encounter for anatomic survey complication before ([facility])- Primary Other specified complication, antepartum [facility] Diagnosis Pre-existing type 2 diabetes mellitus in in first trimester ([facility])- Primary Diabetes mellitus of mother, complicating , childbirth, or the puerperium, unspecified as to episode of care History of pre-eclampsia Personal history of other genital system and obstetric disorders H/O macrosomia in infant in prior , currently ([facility]) with other poor obstetric history 17 weeks gestation of ([facility]) state, incidental Encounter for screening for malformation using ultrasound ([facility]) Obesity affecting in first trimester, unspecified obesity type ([facility])- Primary Herpes simplex type 2 (HSV-2) infection affecting , antepartum, unspecified trimester ([facility]) Pre-existing type 2 diabetes mellitus in in first trimester ([facility]) Diabetes mellitus of mother, complicating , childbirth, or the puerperium, unspecified as to episode of care 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 Encounter for supervision of high risk in first trimester, antepartum ([facility]) 21 weeks gestation of ([facility]) state, incidental Pre-existing type 2 diabetes mellitus in in first trimester ([facility])- Primary Diabetes mellitus of mother, complicating , childbirth, or the puerperium, unspecified as to episode of care Obesity affecting in first trimester, unspecified obesity type ([facility]) History of pre-eclampsia Personal history of other genital system and obstetric disorders H/O macrosomia in in prior , currently ([facility]) with other poor obstetric history History of bipolar disorder Personal history of affective disorder 21 weeks gestation of ([facility]) state, incidental Encounter for anatomic survey ([facility]) Encounter for anatomic survey Screening for diabetes mellitus- Primary Obesity affecting in first trimester, unspecified obesity type ([facility]) Pre-existing type 2 diabetes mellitus in in first trimester ([facility]) Diabetes mellitus of mother, complicating , childbirth, or the puerperium, unspecified as to episode of care Herpes simplex type 2 (HSV-2) infection affecting , antepartum, unspecified trimester ([facility]) 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 note* Diagnosis Pre-existing type 2 diabetes mellitus in in first trimester ([facility])- Primary Diabetes mellitus of mother, complicating , childbirth, or the puerperium, unspecified as to episode of care History of pre-eclampsia Personal history of other genital system and obstetric disorders H/O macrosomia in infant in prior , currently ([facility]) with other poor obstetric history 17 weeks gestation of ([facility]) state, incidental Encounter for screening for malformation using ultrasound ([facility]) Obesity affecting in first trimester, unspecified obesity type ([facility])- Primary Herpes simplex type 2 (HSV-2) infection affecting , antepartum, unspecified trimester ([facility]) Pre-existing type 2 diabetes mellitus in in first trimester ([facility]) Diabetes mellitus of mother, complicating , childbirth, or the puerperium, unspecified as to episode of care 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 Encounter for supervision of high risk in first trimester, antepartum ([facility]) 21 weeks gestation of ([facility]) state, incidental Pre-existing type 2 diabetes mellitus in in first trimester ([facility])- Primary Diabetes mellitus of mother, complicating , childbirth, or the puerperium, unspecified as to episode of care Obesity affecting in first trimester, unspecified obesity type ([facility]) History of pre-eclampsia Personal history of other genital system and obstetric disorders H/O macrosomia in infant in prior , currently ([facility]) with other poor obstetric history History of bipolar disorder Personal history of affective disorder 21 weeks gestation of ([facility]) state, incidental Encounter for anatomic survey ([facility]) Encounter for anatomic survey Type 2 diabetes mellitus during , antepartum, third trimester ([facility])- Primary Insulin controlled gestational diabetes mellitus (GDM) in first trimester ([facility]) High-risk , third trimester ([facility]) [facility] Pre-existing type 2 diabetes mellitus in in first trimester ([facility])- Primary Diabetes mellitus of mother, complicating , childbirth, or the puerperium, unspecified as to episode of care History of pre-eclampsia Personal history of other genital system and obstetric disorders H/O macrosomia in infant in prior , currently ([facility]) with other poor obstetric history 17 weeks gestation of ([facility]) state, incidental Encounter for screening for malformation using ultrasound ([facility]) Obesity affecting in first trimester, unspecified obesity type ([facility])- Primary Herpes simplex type 2 (HSV-2) infection affecting , antepartum, unspecified trimester ([facility]) Pre-existing type 2 diabetes mellitus in in first trimester ([facility]) Diabetes mellitus of mother, complicating , childbirth, or the puerperium, unspecified as to episode of care 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 Encounter for supervision of high risk in first trimester, antepartum ([facility]) 21 weeks gestation of ([facility]) state, incidental Pre-existing type 2 diabetes mellitus in in first trimester ([facility])- Primary Diabetes mellitus of mother, complicating , childbirth, or the puerperium, unspecified as to episode of care Obesity affecting in first trimester, unspecified obesity type ([facility]) History of pre-eclampsia Personal history of other genital system and obstetric disorders H/O macrosomia in in prior , currently ([facility]) with other poor obstetric history History of bipolar disorder Personal history of affective disorder 21 weeks gestation of ([facility]) state, incidental Encounter for anatomic survey ([facility]) Encounter for anatomic survey Procedure not carried out- Primary Procedure not carried out for other reasons Supervision of high risk in second trimester ([facility])- Primary Unspecified high-risk 27 weeks gestation of ([facility]) state, incidental Burning with urination Dysuria Vaginal discharge Leukorrhea, not specified as infective [facility] noteNo assessment information availableWSelect [facility] [place] Work Phone: Evaluation note* Diagnosis Pre-existing type 2 diabetes mellitus in in first trimester ([facility])- Primary Diabetes mellitus of mother, complicating , childbirth, or the puerperium, unspecified as to episode of care History of pre-eclampsia Personal history of other genital system and obstetric disorders H/O macrosomia in infant in prior , currently ([facility]) with other poor obstetric history 17 weeks gestation of ([facility]) state, incidental Encounter for screening for malformation using ultrasound ([facility]) Obesity affecting in first trimester, unspecified obesity type ([facility])- Primary Herpes simplex type 2 (HSV-2) infection affecting , antepartum, unspecified trimester ([facility]) Pre-existing type 2 diabetes mellitus in in first trimester ([facility]) Diabetes mellitus of mother, complicating , childbirth, or the puerperium, unspecified as to episode of care 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 Encounter for supervision of high risk in first trimester, antepartum ([facility]) 21 weeks gestation of ([facility]) state, incidental Pre-existing type 2 diabetes mellitus in in first trimester ([facility])- Primary Diabetes mellitus of mother, complicating , childbirth, or the puerperium, unspecified as to episode of care Obesity affecting in first trimester, unspecified obesity type ([facility]) History of pre-eclampsia Personal history of other genital system and obstetric disorders H/O macrosomia in in prior , currently ([facility]) with other poor obstetric history History of bipolar disorder Personal history of affective disorder 21 weeks gestation of ([facility]) state, incidental Encounter for anatomic survey ([facility]) Encounter for anatomic survey Supervision of high risk in second trimester ([facility])- Primary Unspecified high-risk 27 weeks gestation of ([facility]) state, incidental Burning with urination Dysuria Vaginal discharge Leukorrhea, not specified as infective HSV (herpes simplex virus) infection Herpes simplex without mention of complication [facility] Diagnosis Pre-existing type 2 diabetes mellitus in in first trimester ([facility])- Primary Diabetes mellitus of mother, complicating , childbirth, or the puerperium, unspecified as to episode of care History of pre-eclampsia Personal history of other genital system and obstetric disorders H/O macrosomia in infant in prior , currently ([facility]) with other poor obstetric history 17 weeks gestation of ([facility]) state, incidental Encounter for screening for malformation using ultrasound ([facility]) Obesity affecting in first trimester, unspecified obesity type ([facility])- Primary Herpes simplex type 2 (HSV-2) infection affecting , antepartum, unspecified trimester ([facility]) Pre-existing type 2 diabetes mellitus in in first trimester ([facility]) Diabetes mellitus of mother, complicating , childbirth, or the puerperium, unspecified as to episode of care 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 Encounter for supervision of high risk in first trimester, antepartum ([facility]) 21 weeks gestation of ([facility]) state, incidental Pre-existing type 2 diabetes mellitus in in first trimester ([facility])- Primary Diabetes mellitus of mother, complicating , childbirth, or the puerperium, unspecified as to episode of care Obesity affecting in first trimester, unspecified obesity type ([facility]) History of pre-eclampsia Personal history of other genital system and obstetric disorders H/O macrosomia in in prior , currently ([facility]) with other poor obstetric history History of bipolar disorder Personal history of affective disorder 21 weeks gestation of ([facility]) state, incidental Encounter for anatomic survey ([facility]) Encounter for anatomic survey BV (bacterial vaginosis)- Primary Vaginitis and vulvovaginitis, unspecified [facility]* Diagnosis Pre-existing type 2 diabetes mellitus in in first trimester ([facility])- Primary Diabetes mellitus of mother, complicating , childbirth, or the puerperium, unspecified as to episode of care History of pre-eclampsia Personal history of other genital system and obstetric disorders H/O macrosomia in in prior , currently ([facility]) with other poor obstetric history 17 weeks gestation of ([facility]) state, incidental Encounter for screening for malformation using ultrasound ([facility]) Obesity affecting in first trimester, unspecified obesity type ([facility])- Primary Herpes simplex type 2 (HSV-2) infection affecting , antepartum, unspecified trimester ([facility]) Pre-existing type 2 diabetes mellitus in in first trimester ([facility]) Diabetes mellitus of mother, complicating , childbirth, or the puerperium, unspecified as to episode of care 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 Encounter for supervision of high risk in first trimester, antepartum ([facility]) 21 weeks gestation of ([facility]) state, incidental Pre-existing type 2 diabetes mellitus in in first trimester ([facility])- Primary Diabetes mellitus of mother, complicating , childbirth, or the puerperium, unspecified as to episode of care Obesity affecting in first trimester, unspecified obesity type ([facility]) History of pre-eclampsia Personal history of other genital system and obstetric disorders H/O macrosomia in in prior , currently ([facility]) with other poor obstetric history History of bipolar disorder Personal history of affective disorder 21 weeks gestation of ([facility]) state, incidental Encounter for anatomic survey ([facility]) Encounter for anatomic survey Supervision of high risk in third trimester ([facility])- Primary Unspecified high-risk History of pre-eclampsia Personal history of other genital system and obstetric disorders 29 weeks gestation of ([facility]) state, incidental Pre-existing type 2 diabetes mellitus in in third trimester ([facility]) Diabetes mellitus of mother, complicating , childbirth, or the puerperium, unspecified as to episode of care 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 Pre-existing type 2 diabetes mellitus in in first trimester ([facility]) Diabetes mellitus of mother, complicating , childbirth, or the puerperium, unspecified as to episode of care Tobacco smoking complicating in first trimester ([facility]) Tobacco use disorder complicating , childbirth, or the puerperium, antepartum condition or complication History of recurrent UTI (urinary tract infection) Personal history of urinary (tract) infection 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, 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, 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 ([facility]) Herpes simplex type 2 (HSV-2) infection affecting , antepartum, unspecified trimester ([facility]) * Assessment & Plan Note - Piper Julian MD - 10/04/2024 11:19 AM EDT Associated Problem(s): History of pre-eclampsia Orders: ECG COMPLETE; Future NON-STRESS TEST; Standing PROTEIN / CREATININE RATIO; Future BACTERIAL CULTURE, URINE; Future * Assessment & Plan Note - Piper Julian MD - 10/04/2024 11:19 AM EDT Associated Problem(s): 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 and NIPT test this previous child had testing at [facility] * Assessment & Plan Note - Piper Julian MD - 10/04/2024 11:19 AM EDT Associated Problem(s): Pre-existing type 2 diabetes mellitus in in first trimester ([facility]) follows w/ endocrine, hgba1 c controlled dm retinopathy - has f/u w/ optho ecg ordered/encouraged check prot/creat ratio today 28 week labs done * Assessment & Plan Note - Piper Julian MD - 10/04/2024 11:19 AM EDT Associated Problem(s): Tobacco smoking complicating in first trimester ([facility]) decreased to 2 cig a day, encouraged to quit, support offered * Assessment & Plan Note - Piper Julian MD - 10/04/2024 11:19 AM EDT Associated Problem(s): History of recurrent UTI (urinary tract infection) recheck culture today * Assessment & Plan Note - Piper Julian MD - 10/04/2024 11:19 AM EDT Associated Problem(s): 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) f/u optho as scheduled * Assessment & Plan Note - Piper Julian MD - 10/04/2024 11:19 AM EDT Associated Problem(s): Herpes simplex type 2 (HSV-2) infection affecting , antepartum, unspecified trimester ([facility]) prophylaxis ordered, no outbreaks recently [facility] Diagnosis Pre-existing type 2 diabetes mellitus in in first trimester ([facility])- Primary Diabetes mellitus of mother, complicating , childbirth, or the puerperium, unspecified as to episode of care History of pre-eclampsia Personal history of other genital system and obstetric disorders H/O macrosomia in infant in prior , currently ([facility]) with other poor obstetric history 17 weeks gestation of ([facility]) state, incidental Encounter for screening for malformation using ultrasound ([facility]) Obesity affecting in first trimester, unspecified obesity type ([facility])- Primary Herpes simplex type 2 (HSV-2) infection affecting , antepartum, unspecified trimester ([facility]) Pre-existing type 2 diabetes mellitus in in first trimester ([facility]) Diabetes mellitus of mother, complicating , childbirth, or the puerperium, unspecified as to episode of care 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 Encounter for supervision of high risk in first trimester, antepartum ([facility]) 21 weeks gestation of ([facility]) state, incidental Pre-existing type 2 diabetes mellitus in in first trimester ([facility])- Primary Diabetes mellitus of mother, complicating , childbirth, or the puerperium, unspecified as to episode of care Obesity affecting in first trimester, unspecified obesity type ([facility]) History of pre-eclampsia Personal history of other genital system and obstetric disorders H/O macrosomia in infant in prior , currently ([facility]) with other poor obstetric history History of bipolar disorder Personal history of affective disorder 21 weeks gestation of ([facility]) state, incidental Encounter for anatomic survey ([facility]) Encounter for anatomic survey Supervision of high risk in third trimester ([facility])- Primary Unspecified high-risk History of pre-eclampsia Personal history of other genital system and obstetric disorders 29 weeks gestation of ([facility]) state, incidental Pre-existing type 2 diabetes mellitus in in third trimester ([facility]) Diabetes mellitus of mother, complicating , childbirth, or the puerperium, unspecified as to episode of care 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 Pre-existing type 2 diabetes mellitus in in first trimester ([facility]) Diabetes mellitus of mother, complicating , childbirth, or the puerperium, unspecified as to episode of care Tobacco smoking complicating in first trimester ([facility]) Tobacco use disorder complicating , childbirth, or the puerperium, antepartum condition or complication History of recurrent UTI (urinary tract infection) Personal history of urinary (tract) infection 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, 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, 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 ([facility]) Herpes simplex type 2 (HSV-2) infection affecting , antepartum, unspecified trimester ([facility]) Maternal care for (suspected) abnormality and damage, unspecified, fetus 1 ([facility])- Primary [facility]* Diagnosis Pre-existing type 2 diabetes mellitus in in first trimester ([facility])- Primary Diabetes mellitus of mother, complicating , childbirth, or the puerperium, unspecified as to episode of care History of pre-eclampsia Personal history of other genital system and obstetric disorders H/O macrosomia in in prior , currently ([facility]) with other poor obstetric history 17 weeks gestation of ([facility]) state, incidental Encounter for screening for malformation using ultrasound ([facility]) Obesity affecting in first trimester, unspecified obesity type ([facility])- Primary Herpes simplex type 2 (HSV-2) infection affecting , antepartum, unspecified trimester ([facility]) Pre-existing type 2 diabetes mellitus in in first trimester ([facility]) Diabetes mellitus of mother, complicating , childbirth, or the puerperium, unspecified as to episode of care 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 Encounter for supervision of high risk in first trimester, antepartum ([facility]) 21 weeks gestation of ([facility]) state, incidental Pre-existing type 2 diabetes mellitus in in first trimester ([facility])- Primary Diabetes mellitus of mother, complicating , childbirth, or the puerperium, unspecified as to episode of care Obesity affecting in first trimester, unspecified obesity type ([facility]) History of pre-eclampsia Personal history of other genital system and obstetric disorders H/O macrosomia in in prior , currently ([facility]) with other poor obstetric history History of bipolar disorder Personal history of affective disorder 21 weeks gestation of ([facility]) state, incidental Encounter for anatomic survey ([facility]) Encounter for anatomic survey Supervision of high risk in third trimester ([facility])- Primary Unspecified high-risk History of pre-eclampsia Personal history of other genital system and obstetric disorders 29 weeks gestation of ([facility]) state, incidental Pre-existing type 2 diabetes mellitus in in third trimester ([facility]) Diabetes mellitus of mother, complicating , childbirth, or the puerperium, unspecified as to episode of care 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 Pre-existing type 2 diabetes mellitus in in first trimester ([facility]) Diabetes mellitus of mother, complicating , childbirth, or the puerperium, unspecified as to episode of care Tobacco smoking complicating in first trimester ([facility]) Tobacco use disorder complicating , childbirth, or the puerperium, antepartum condition or complication History of recurrent UTI (urinary tract infection) Personal history of urinary (tract) infection 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, 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, 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 ([facility]) Herpes simplex type 2 (HSV-2) infection affecting , antepartum, unspecified trimester ([facility]) Supervision of high risk in third trimester ([facility])- Primary Unspecified high-risk Pre-existing type 2 diabetes mellitus in in third trimester ([facility]) Diabetes mellitus of mother, complicating , childbirth, or the puerperium, unspecified as to episode of care Herpes simplex type 2 (HSV-2) infection affecting , antepartum, unspecified trimester ([facility]) H/O macrosomia in in prior , currently ([facility]) with other poor obstetric history History of pre-eclampsia Personal history of other genital system and obstetric disorders 31 weeks gestation of ([facility]) state, incidental * Assessment & Plan Note - Whit Morton MD - 10/18/2024 4:08 PM EDT Associated Problem(s): Herpes simplex type 2 (HSV-2) infection affecting , antepartum, unspecified trimester ([facility]) Taking acyclovir * Assessment & Plan Note - Whit Morton MD - 10/18/2024 4:08 PM EDT Associated Problem(s): H/O macrosomia in in prior , currently ([facility]) Growth us scheduled * Assessment & Plan Note - Whit Morton MD - 10/18/2024 4:08 PM EDT Associated Problem(s): History of pre-eclampsia Continue ASA [facility] Diagnosis Pre-existing type 2 diabetes mellitus in in first trimester ([facility])- Primary Diabetes mellitus of mother, complicating , childbirth, or the puerperium, unspecified as to episode of care History of pre-eclampsia Personal history of other genital system and obstetric disorders H/O macrosomia in infant in prior , currently ([facility]) with other poor obstetric history 17 weeks gestation of ([facility]) state, incidental Encounter for screening for malformation using ultrasound ([facility]) Obesity affecting in first trimester, unspecified obesity type ([facility])- Primary Herpes simplex type 2 (HSV-2) infection affecting , antepartum, unspecified trimester ([facility]) Pre-existing type 2 diabetes mellitus in in first trimester ([facility]) Diabetes mellitus of mother, complicating , childbirth, or the puerperium, unspecified as to episode of care 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 Encounter for supervision of high risk in first trimester, antepartum ([facility]) 21 weeks gestation of ([facility]) state, incidental Pre-existing type 2 diabetes mellitus in in first trimester ([facility])- Primary Diabetes mellitus of mother, complicating , childbirth, or the puerperium, unspecified as to episode of care Obesity affecting in first trimester, unspecified obesity type ([facility]) History of pre-eclampsia Personal history of other genital system and obstetric disorders H/O macrosomia in in prior , currently ([facility]) with other poor obstetric history History of bipolar disorder Personal history of affective disorder 21 weeks gestation of ([facility]) state, incidental Encounter for anatomic survey ([facility]) Encounter for anatomic survey Supervision of high risk in third trimester ([facility])- Primary Unspecified high-risk History of pre-eclampsia Personal history of other genital system and obstetric disorders 29 weeks gestation of ([facility]) state, incidental Pre-existing type 2 diabetes mellitus in in third trimester ([facility]) Diabetes mellitus of mother, complicating , childbirth, or the puerperium, unspecified as to episode of care 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 Pre-existing type 2 diabetes mellitus in in first trimester ([facility]) Diabetes mellitus of mother, complicating , childbirth, or the puerperium, unspecified as to episode of care Tobacco smoking complicating in first trimester ([facility]) Tobacco use disorder complicating , childbirth, or the puerperium, antepartum condition or complication History of recurrent UTI (urinary tract infection) Personal history of urinary (tract) infection 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, 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, 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 fpc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 ([facility]) Herpes simplex type 2 (HSV-2) infection affecting , antepartum, unspecified trimester ([facility]) Supervision of high risk in third trimester ([facility])- Primary Unspecified high-risk Pre-existing type 2 diabetes mellitus in in third trimester ([facility]) Diabetes mellitus of mother, complicating , childbirth, or the puerperium, unspecified as to episode of care Herpes simplex type 2 (HSV-2) infection affecting , antepartum, unspecified trimester ([facility]) H/O macrosomia in in prior , currently ([facility]) with other poor obstetric history History of pre-eclampsia Personal history of other genital system and obstetric disorders 31 weeks gestation of ([facility]) state, incidental Supervision of high risk in third trimester ([facility])- Primary Unspecified high-risk Pre-existing type 2 diabetes mellitus in in third trimester ([facility]) Diabetes mellitus of mother, complicating , childbirth, or the puerperium, unspecified as to episode of care Exposure to parvovirus Contact with or exposure to other viral diseases History of pre-eclampsia Personal history of other genital system and obstetric disorders * Assessment & Plan Note - Piper Julian MD - 10/25/2024 10:23 AM EDT Associated Problem(s): History of pre-eclampsia Orders: COMPLETE BLOOD COUNT; Future COMPREHENSIVE METABOLIC PANEL; [facility] Pre-existing type 2 diabetes mellitus in in first trimester ([facility])- Primary Diabetes mellitus of mother, complicating , childbirth, or the puerperium, unspecified as to episode of care History of pre-eclampsia Personal history of other genital system and obstetric disorders H/O macrosomia in in prior , currently ([facility]) with other poor obstetric history 17 weeks gestation of ([facility]) state, incidental Encounter for screening for malformation using ultrasound ([facility]) Obesity affecting in first trimester, unspecified obesity type ([facility])- Primary Herpes simplex type 2 (HSV-2) infection affecting , antepartum, unspecified trimester ([facility]) Pre-existing type 2 diabetes mellitus in in first trimester ([facility]) Diabetes mellitus of mother, complicating , childbirth, or the puerperium, unspecified as to episode of care 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 Encounter for supervision of high risk in first trimester, antepartum ([facility]) 21 weeks gestation of ([facility]) state, incidental Pre-existing type 2 diabetes mellitus in in first trimester ([facility])- Primary Diabetes mellitus of mother, complicating , childbirth, or the puerperium, unspecified as to episode of care Obesity affecting in first trimester, unspecified obesity type ([facility]) History of pre-eclampsia Personal history of other genital system and obstetric disorders H/O macrosomia in in prior , currently ([facility]) with other poor obstetric history History of bipolar disorder Personal history of affective disorder 21 weeks gestation of ([facility]) state, incidental Encounter for anatomic survey ([facility]) Encounter for anatomic survey Supervision of high risk in third trimester ([facility])- Primary Unspecified high-risk History of pre-eclampsia Personal history of other genital system and obstetric disorders 29 weeks gestation of ([facility]) state, incidental Pre-existing type 2 diabetes mellitus in in third trimester ([facility]) Diabetes mellitus of mother, complicating , childbirth, or the puerperium, unspecified as to episode of care 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 Pre-existing type 2 diabetes mellitus in in first trimester ([facility]) Diabetes mellitus of mother, complicating , childbirth, or the puerperium, unspecified as to episode of care Tobacco smoking complicating in first trimester ([facility]) Tobacco use disorder complicating , childbirth, or the puerperium, antepartum condition or complication History of recurrent UTI (urinary tract infection) Personal history of urinary (tract) infection 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, 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, 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 ([facility]) Herpes simplex type 2 (HSV-2) infection affecting , antepartum, unspecified trimester ([facility]) Supervision of high risk in third trimester ([facility])- Primary Unspecified high-risk Pre-existing type 2 diabetes mellitus in in third trimester ([facility]) Diabetes mellitus of mother, complicating , childbirth, or the puerperium, unspecified as to episode of care Herpes simplex type 2 (HSV-2) infection affecting , antepartum, unspecified trimester ([facility]) H/O macrosomia in infant in prior , currently ([facility]) with other poor obstetric history History of pre-eclampsia Personal history of other genital system and obstetric disorders 31 weeks gestation of ([facility]) state, incidental Supervision of high risk in third trimester ([facility])- Primary Unspecified high-risk Pre-existing type 2 diabetes mellitus in in third trimester ([facility]) Diabetes mellitus of mother, complicating , childbirth, or the puerperium, unspecified as to episode of care Exposure to parvovirus Contact with or exposure to other viral diseases History of pre-eclampsia Personal history of other genital system and obstetric disorders Pre-existing type 2 diabetes mellitus in in first trimester ([facility])- Primary Diabetes mellitus of mother, complicating , childbirth, or the puerperium, unspecified as to episode of care Obesity affecting in first trimester, unspecified obesity type ([facility]) 33 weeks gestation of ([facility]) state, incidental Pre-existing type 2 diabetes mellitus in in third trimester ([facility])- Primary Diabetes mellitus of mother, complicating , childbirth, or the puerperium, unspecified as to episode of care History of pre-eclampsia Personal history of other genital system and obstetric disorders H/O macrosomia in in prior , currently ([facility]) with other poor obstetric history 33 weeks gestation of ([facility]) state, incidental Request for sterilization Herpes simplex type 2 (HSV-2) infection affecting , antepartum, unspecified trimester ([facility]) [facility] Diagnosis Pre-existing type 2 diabetes mellitus in in first trimester ([facility])- Primary Diabetes mellitus of mother, complicating , childbirth, or the puerperium, unspecified as to episode of care History of pre-eclampsia Personal history of other genital system and obstetric disorders H/O macrosomia in infant in prior , currently ([facility]) with other poor obstetric history 17 weeks gestation of ([facility]) state, incidental Encounter for screening for malformation using ultrasound ([facility]) Obesity affecting in first trimester, unspecified obesity type ([facility])- Primary Herpes simplex type 2 (HSV-2) infection affecting , antepartum, unspecified trimester ([facility]) Pre-existing type 2 diabetes mellitus in in first trimester ([facility]) Diabetes mellitus of mother, complicating , childbirth, or the puerperium, unspecified as to episode of care 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 Encounter for supervision of high risk in first trimester, antepartum ([facility]) 21 weeks gestation of ([facility]) state, incidental Pre-existing type 2 diabetes mellitus in in first trimester ([facility])- Primary Diabetes mellitus of mother, complicating , childbirth, or the puerperium, unspecified as to episode of care Obesity affecting in first trimester, unspecified obesity type ([facility]) History of pre-eclampsia Personal history of other genital system and obstetric disorders H/O macrosomia in infant in prior , currently ([facility]) with other poor obstetric history History of bipolar disorder Personal history of affective disorder 21 weeks gestation of ([facility]) state, incidental Encounter for anatomic survey ([facility]) Encounter for anatomic survey Supervision of high risk in third trimester ([facility])- Primary Unspecified high-risk History of pre-eclampsia Personal history of other genital system and obstetric disorders 29 weeks gestation of ([facility]) state, incidental Pre-existing type 2 diabetes mellitus in in third trimester ([facility]) Diabetes mellitus of mother, complicating , childbirth, or the puerperium, unspecified as to episode of care 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 Pre-existing type 2 diabetes mellitus in in first trimester ([facility]) Diabetes mellitus of mother, complicating , childbirth, or the puerperium, unspecified as to episode of care Tobacco smoking complicating in first trimester ([facility]) Tobacco use disorder complicating , childbirth, or the puerperium, antepartum condition or complication History of recurrent UTI (urinary tract infection) Personal history of urinary (tract) infection 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, 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, 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 ([facility]) Herpes simplex type 2 (HSV-2) infection affecting , antepartum, unspecified trimester ([facility]) Supervision of high risk in third trimester ([facility])- Primary Unspecified high-risk Pre-existing type 2 diabetes mellitus in in third trimester ([facility]) Diabetes mellitus of mother, complicating , childbirth, or the puerperium, unspecified as to episode of care Herpes simplex type 2 (HSV-2) infection affecting , antepartum, unspecified trimester ([facility]) H/O macrosomia in in prior , currently ([facility]) with other poor obstetric history History of pre-eclampsia Personal history of other genital system and obstetric disorders 31 weeks gestation of ([facility]) state, incidental Supervision of high risk in third trimester ([facility])- Primary Unspecified high-risk Pre-existing type 2 diabetes mellitus in in third trimester ([facility]) Diabetes mellitus of mother, complicating , childbirth, or the puerperium, unspecified as to episode of care Exposure to parvovirus Contact with or exposure to other viral diseases History of pre-eclampsia Personal history of other genital system and obstetric disorders Pre-existing type 2 diabetes mellitus in in third trimester ([facility])- Primary Diabetes mellitus of mother, complicating , childbirth, or the puerperium, unspecified as to episode of care History of pre-eclampsia Personal history of other genital system and obstetric disorders H/O macrosomia in in prior , currently ([facility]) with other poor obstetric history 33 weeks gestation of ([facility]) state, incidental Request for sterilization Herpes simplex type 2 (HSV-2) infection affecting , antepartum, unspecified trimester ([facility]) * Assessment & Plan Note - William Gramajo MD - 11/02/2024 11:09 AM EDTAssociated Problem(s): Request for sterilization Title 19 papers signed today * Assessment & Plan Note - William Gramajo MD - 11/02/2024 11:08 AM EDTAssociated Problem(s): History of pre-eclampsia Continue aspirin Orders: URINE OB DIP B/O * Assessment & Plan Note - William Gramajo MD - 11/02/2024 11:08 AM EDTAssociated Problem(s): H/O macrosomia in in prior , currently ([facility]) EFW on growth US shows AGA and expected to be smaller than 1st baby. Growth US with MFM today. Orders: URINE OB DIP B/O * Assessment & Plan Note - William Gramajo MD - 11/02/2024 11:08 AM EDTAssociated Problem(s): Herpes simplex type 2 (HSV-2) infection affecting , antepartum, unspecified trimester ([facility]) On acyclovir prophylaxis [facility] Diagnosis Pre-existing type 2 diabetes mellitus in in first trimester ([facility])- Primary Diabetes mellitus of mother, complicating , childbirth, or the puerperium, unspecified as to episode of care History of pre-eclampsia Personal history of other genital system and obstetric disorders H/O macrosomia in in prior , currently ([facility]) with other poor obstetric history 17 weeks gestation of ([facility]) state, incidental Encounter for screening for malformation using ultrasound ([facility]) Obesity affecting in first trimester, unspecified obesity type ([facility])- Primary Herpes simplex type 2 (HSV-2) infection affecting , antepartum, unspecified trimester ([facility]) Pre-existing type 2 diabetes mellitus in in first trimester ([facility]) Diabetes mellitus of mother, complicating , childbirth, or the puerperium, unspecified as to episode of care 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 Encounter for supervision of high risk in first trimester, antepartum ([facility]) 21 weeks gestation of ([facility]) state, incidental Pre-existing type 2 diabetes mellitus in in first trimester ([facility])- Primary Diabetes mellitus of mother, complicating , childbirth, or the puerperium, unspecified as to episode of care Obesity affecting in first trimester, unspecified obesity type ([facility]) History of pre-eclampsia Personal history of other genital system and obstetric disorders H/O macrosomia in infant in prior , currently ([facility]) with other poor obstetric history History of bipolar disorder Personal history of affective disorder 21 weeks gestation of ([facility]) state, incidental Encounter for anatomic survey ([facility]) Encounter for anatomic survey Supervision of high risk in third trimester ([facility])- Primary Unspecified high-risk History of pre-eclampsia Personal history of other genital system and obstetric disorders 29 weeks gestation of ([facility]) state, incidental Pre-existing type 2 diabetes mellitus in in third trimester ([facility]) Diabetes mellitus of mother, complicating , childbirth, or the puerperium, unspecified as to episode of care 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 Pre-existing type 2 diabetes mellitus in in first trimester ([facility]) Diabetes mellitus of mother, complicating , childbirth, or the puerperium, unspecified as to episode of care Tobacco smoking complicating in first trimester ([facility]) Tobacco use disorder complicating , childbirth, or the puerperium, antepartum condition or complication History of recurrent UTI (urinary tract infection) Personal history of urinary (tract) infection 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, 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, 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 fpc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 ([facility]) Herpes simplex type 2 (HSV-2) infection affecting , antepartum, unspecified trimester ([facility]) Supervision of high risk in third trimester ([facility])- Primary Unspecified high-risk Pre-existing type 2 diabetes mellitus in in third trimester ([facility]) Diabetes mellitus of mother, complicating , childbirth, or the puerperium, unspecified as to episode of care Herpes simplex type 2 (HSV-2) infection affecting , antepartum, unspecified trimester ([facility]) H/O macrosomia in in prior , currently ([facility]) with other poor obstetric history History of pre-eclampsia Personal history of other genital system and obstetric disorders 31 weeks gestation of ([facility]) state, incidental Supervision of high risk in third trimester ([facility])- Primary Unspecified high-risk Pre-existing type 2 diabetes mellitus in in third trimester ([facility]) Diabetes mellitus of mother, complicating , childbirth, or the puerperium, unspecified as to episode of care Exposure to parvovirus Contact with or exposure to other viral diseases History of pre-eclampsia Personal history of other genital system and obstetric disorders Pre-existing type 2 diabetes mellitus in in third trimester ([facility])- Primary Diabetes mellitus of mother, complicating , childbirth, or the puerperium, unspecified as to episode of care History of pre-eclampsia Personal history of other genital system and obstetric disorders H/O macrosomia in infant in prior , currently ([facility]) with other poor obstetric history 33 weeks gestation of ([facility]) state, incidental Request for sterilization Herpes simplex type 2 (HSV-2) infection affecting , antepartum, unspecified trimester ([facility]) Type 2 diabetes mellitus affecting in third trimester, antepartum ([facility])- Primary High-risk , third trimester ([facility]) documented in this encounter [facility]* Diagnosis Pre-existing type 2 diabetes mellitus in in first trimester ([facility])- Primary Diabetes mellitus of mother, complicating , childbirth, or the puerperium, unspecified as to episode of care History of pre-eclampsia Personal history of other genital system and obstetric disorders H/O macrosomia in infant in prior , currently ([facility]) with other poor obstetric history 17 weeks gestation of ([facility]) state, incidental Encounter for screening for malformation using ultrasound ([facility]) Obesity affecting in first trimester, unspecified obesity type ([facility])- Primary Herpes simplex type 2 (HSV-2) infection affecting , antepartum, unspecified trimester ([facility]) Pre-existing type 2 diabetes mellitus in in first trimester ([facility]) Diabetes mellitus of mother, complicating , childbirth, or the puerperium, unspecified as to episode of care 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 Encounter for supervision of high risk in first trimester, antepartum ([facility]) 21 weeks gestation of ([facility]) state, incidental Pre-existing type 2 diabetes mellitus in in first trimester ([facility])- Primary Diabetes mellitus of mother, complicating , childbirth, or the puerperium, unspecified as to episode of care Obesity affecting in first trimester, unspecified obesity type ([facility]) History of pre-eclampsia Personal history of other genital system and obstetric disorders H/O macrosomia in in prior , currently ([facility]) with other poor obstetric history History of bipolar disorder Personal history of affective disorder 21 weeks gestation of ([facility]) state, incidental Encounter for anatomic survey ([facility]) Encounter for anatomic survey Supervision of high risk in third trimester ([facility])- Primary Unspecified high-risk History of pre-eclampsia Personal history of other genital system and obstetric disorders 29 weeks gestation of ([facility]) state, incidental Pre-existing type 2 diabetes mellitus in in third trimester ([facility]) Diabetes mellitus of mother, complicating , childbirth, or the puerperium, unspecified as to episode of care 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 Pre-existing type 2 diabetes mellitus in in first trimester ([facility]) Diabetes mellitus of mother, complicating , childbirth, or the puerperium, unspecified as to episode of care Tobacco smoking complicating in first trimester ([facility]) Tobacco use disorder complicating , childbirth, or the puerperium, antepartum condition or complication History of recurrent UTI (urinary tract infection) Personal history of urinary (tract) infection 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, 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, 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 fpc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 ([facility]) Herpes simplex type 2 (HSV-2) infection affecting , antepartum, unspecified trimester ([facility]) Supervision of high risk in third trimester ([facility])- Primary Unspecified high-risk Pre-existing type 2 diabetes mellitus in in third trimester ([facility]) Diabetes mellitus of mother, complicating , childbirth, or the puerperium, unspecified as to episode of care Herpes simplex type 2 (HSV-2) infection affecting , antepartum, unspecified trimester ([facility]) H/O macrosomia in in prior , currently ([facility]) with other poor obstetric history History of pre-eclampsia Personal history of other genital system and obstetric disorders 31 weeks gestation of ([facility]) state, incidental Supervision of high risk in third trimester ([facility])- Primary Unspecified high-risk Pre-existing type 2 diabetes mellitus in in third trimester ([facility]) Diabetes mellitus of mother, complicating , childbirth, or the puerperium, unspecified as to episode of care Exposure to parvovirus Contact with or exposure to other viral diseases History of pre-eclampsia Personal history of other genital system and obstetric disorders Pre-existing type 2 diabetes mellitus in in third trimester ([facility])- Primary Diabetes mellitus of mother, complicating , childbirth, or the puerperium, unspecified as to episode of care History of pre-eclampsia Personal history of other genital system and obstetric disorders H/O macrosomia in in prior , currently ([facility]) with other poor obstetric history 33 weeks gestation of ([facility]) state, incidental Request for sterilization Herpes simplex type 2 (HSV-2) infection affecting , antepartum, unspecified trimester ([facility]) Type 2 diabetes mellitus during , antepartum, third trimester ([facility])- Primary documented in this encounter [facility] note* Diagnosis Pre-existing type 2 diabetes mellitus in in first trimester ([facility])- Primary Diabetes mellitus of mother, complicating , childbirth, or the puerperium, unspecified as to episode of care History of pre-eclampsia Personal history of other genital system and obstetric disorders H/O macrosomia in in prior , currently ([facility]) with other poor obstetric history 17 weeks gestation of ([facility]) state, incidental Encounter for screening for malformation using ultrasound ([facility]) Obesity affecting in first trimester, unspecified obesity type ([facility])- Primary Herpes simplex type 2 (HSV-2) infection affecting , antepartum, unspecified trimester ([facility]) Pre-existing type 2 diabetes mellitus in in first trimester ([facility]) Diabetes mellitus of mother, complicating , childbirth, or the puerperium, unspecified as to episode of care 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 Encounter for supervision of high risk in first trimester, antepartum ([facility]) 21 weeks gestation of ([facility]) state, incidental Pre-existing type 2 diabetes mellitus in in first trimester ([facility])- Primary Diabetes mellitus of mother, complicating , childbirth, or the puerperium, unspecified as to episode of care Obesity affecting in first trimester, unspecified obesity type ([facility]) History of pre-eclampsia Personal history of other genital system and obstetric disorders H/O macrosomia in in prior , currently ([facility]) with other poor obstetric history History of bipolar disorder Personal history of affective disorder 21 weeks gestation of ([facility]) state, incidental Encounter for anatomic survey ([facility]) Encounter for anatomic survey Supervision of high risk in third trimester ([facility])- Primary Unspecified high-risk History of pre-eclampsia Personal history of other genital system and obstetric disorders 29 weeks gestation of ([facility]) state, incidental Pre-existing type 2 diabetes mellitus in in third trimester ([facility]) Diabetes mellitus of mother, complicating , childbirth, or the puerperium, unspecified as to episode of care 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 Pre-existing type 2 diabetes mellitus in in first trimester ([facility]) Diabetes mellitus of mother, complicating , childbirth, or the puerperium, unspecified as to episode of care Tobacco smoking complicating in first trimester ([facility]) Tobacco use disorder complicating , childbirth, or the puerperium, antepartum condition or complication History of recurrent UTI (urinary tract infection) Personal history of urinary (tract) infection 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, 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, 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 fpc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 ([facility]) Herpes simplex type 2 (HSV-2) infection affecting , antepartum, unspecified trimester ([facility]) Supervision of high risk in third trimester ([facility])- Primary Unspecified high-risk Pre-existing type 2 diabetes mellitus in in third trimester ([facility]) Diabetes mellitus of mother, complicating , childbirth, or the puerperium, unspecified as to episode of care Herpes simplex type 2 (HSV-2) infection affecting , antepartum, unspecified trimester ([facility]) H/O macrosomia in infant in prior , currently ([facility]) with other poor obstetric history History of pre-eclampsia Personal history of other genital system and obstetric disorders 31 weeks gestation of ([facility]) state, incidental Supervision of high risk in third trimester ([facility])- Primary Unspecified high-risk Pre-existing type 2 diabetes mellitus in in third trimester ([facility]) Diabetes mellitus of mother, complicating , childbirth, or the puerperium, unspecified as to episode of care Exposure to parvovirus Contact with or exposure to other viral diseases History of pre-eclampsia Personal history of other genital system and obstetric disorders Pre-existing type 2 diabetes mellitus in in third trimester ([facility])- Primary Diabetes mellitus of mother, complicating , childbirth, or the puerperium, unspecified as to episode of care History of pre-eclampsia Personal history of other genital system and obstetric disorders H/O macrosomia in infant in prior , currently ([facility]) with other poor obstetric history 33 weeks gestation of ([facility]) state, incidental Request for sterilization Herpes simplex type 2 (HSV-2) infection affecting , antepartum, unspecified trimester ([facility]) complication before ([facility]) Other specified complication, antepartum [facility] Diagnosis Pre-existing type 2 diabetes mellitus in in first trimester ([facility])- Primary Diabetes mellitus of mother, complicating , childbirth, or the puerperium, unspecified as to episode of care History of pre-eclampsia Personal history of other genital system and obstetric disorders H/O macrosomia in infant in prior , currently ([facility]) with other poor obstetric history 17 weeks gestation of ([facility]) state, incidental Encounter for screening for malformation using ultrasound ([facility]) Obesity affecting in first trimester, unspecified obesity type ([facility])- Primary Herpes simplex type 2 (HSV-2) infection affecting , antepartum, unspecified trimester ([facility]) Pre-existing type 2 diabetes mellitus in in first trimester ([facility]) Diabetes mellitus of mother, complicating , childbirth, or the puerperium, unspecified as to episode of care 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 Encounter for supervision of high risk in first trimester, antepartum ([facility]) 21 weeks gestation of ([facility]) state, incidental Pre-existing type 2 diabetes mellitus in in first trimester ([facility])- Primary Diabetes mellitus of mother, complicating , childbirth, or the puerperium, unspecified as to episode of care Obesity affecting in first trimester, unspecified obesity type ([facility]) History of pre-eclampsia Personal history of other genital system and obstetric disorders H/O macrosomia in in prior , currently ([facility]) with other poor obstetric history History of bipolar disorder Personal history of affective disorder 21 weeks gestation of ([facility]) state, incidental Encounter for anatomic survey ([facility]) Encounter for anatomic survey Supervision of high risk in third trimester ([facility])- Primary Unspecified high-risk History of pre-eclampsia Personal history of other genital system and obstetric disorders 29 weeks gestation of ([facility]) state, incidental Pre-existing type 2 diabetes mellitus in in third trimester ([facility]) Diabetes mellitus of mother, complicating , childbirth, or the puerperium, unspecified as to episode of care 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 Pre-existing type 2 diabetes mellitus in in first trimester ([facility]) Diabetes mellitus of mother, complicating , childbirth, or the puerperium, unspecified as to episode of care Tobacco smoking complicating in first trimester ([facility]) Tobacco use disorder complicating , childbirth, or the puerperium, antepartum condition or complication History of recurrent UTI (urinary tract infection) Personal history of urinary (tract) infection 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, 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, 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 ([facility]) Herpes simplex type 2 (HSV-2) infection affecting , antepartum, unspecified trimester ([facility]) Supervision of high risk in third trimester ([facility])- Primary Unspecified high-risk Pre-existing type 2 diabetes mellitus in in third trimester ([facility]) Diabetes mellitus of mother, complicating , childbirth, or the puerperium, unspecified as to episode of care Herpes simplex type 2 (HSV-2) infection affecting , antepartum, unspecified trimester ([facility]) H/O macrosomia in in prior , currently ([facility]) with other poor obstetric history History of pre-eclampsia Personal history of other genital system and obstetric disorders 31 weeks gestation of ([facility]) state, incidental Supervision of high risk in third trimester ([facility])- Primary Unspecified high-risk Pre-existing type 2 diabetes mellitus in in third trimester ([facility]) Diabetes mellitus of mother, complicating , childbirth, or the puerperium, unspecified as to episode of care Exposure to parvovirus Contact with or exposure to other viral diseases History of pre-eclampsia Personal history of other genital system and obstetric disorders Pre-existing type 2 diabetes mellitus in in third trimester ([facility])- Primary Diabetes mellitus of mother, complicating , childbirth, or the puerperium, unspecified as to episode of care History of pre-eclampsia Personal history of other genital system and obstetric disorders H/O macrosomia in infant in prior , currently ([facility]) with other poor obstetric history 33 weeks gestation of ([facility]) state, incidental Request for sterilization Herpes simplex type 2 (HSV-2) infection affecting , antepartum, unspecified trimester ([facility]) 33 weeks gestation of ([facility])- Primary state, incidental complication before ([facility]) Other specified complication, antepartum Pre-existing type 2 diabetes mellitus in in third trimester ([facility]) Diabetes mellitus of mother, complicating , childbirth, or the puerperium, unspecified as to episode of care Supervision of high risk in third trimester ([facility]) Unspecified high-risk pruritus, third trimester ([facility]) documented in this encounter [facility] note* Diagnosis Pre-existing type 2 diabetes mellitus in in first trimester ([facility])- Primary Diabetes mellitus of mother, complicating , childbirth, or the puerperium, unspecified as to episode of care History of pre-eclampsia Personal history of other genital system and obstetric disorders H/O macrosomia in infant in prior , currently ([facility]) with other poor obstetric history 17 weeks gestation of ([facility]) state, incidental Encounter for screening for malformation using ultrasound ([facility]) Obesity affecting in first trimester, unspecified obesity type ([facility])- Primary Herpes simplex type 2 (HSV-2) infection affecting , antepartum, unspecified trimester ([facility]) Pre-existing type 2 diabetes mellitus in in first trimester ([facility]) Diabetes mellitus of mother, complicating , childbirth, or the puerperium, unspecified as to episode of care 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 Encounter for supervision of high risk in first trimester, antepartum ([facility]) 21 weeks gestation of ([facility]) state, incidental Pre-existing type 2 diabetes mellitus in in first trimester ([facility])- Primary Diabetes mellitus of mother, complicating , childbirth, or the puerperium, unspecified as to episode of care Obesity affecting in first trimester, unspecified obesity type ([facility]) History of pre-eclampsia Personal history of other genital system and obstetric disorders H/O macrosomia in infant in prior , currently ([facility]) with other poor obstetric history History of bipolar disorder Personal history of affective disorder 21 weeks gestation of ([facility]) state, incidental Encounter for anatomic survey ([facility]) Encounter for anatomic survey Supervision of high risk in third trimester ([facility])- Primary Unspecified high-risk History of pre-eclampsia Personal history of other genital system and obstetric disorders 29 weeks gestation of ([facility]) state, incidental Pre-existing type 2 diabetes mellitus in in third trimester ([facility]) Diabetes mellitus of mother, complicating , childbirth, or the puerperium, unspecified as to episode of care 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 Pre-existing type 2 diabetes mellitus in in first trimester ([facility]) Diabetes mellitus of mother, complicating , childbirth, or the puerperium, unspecified as to episode of care Tobacco smoking complicating in first trimester ([facility]) Tobacco use disorder complicating , childbirth, or the puerperium, antepartum condition or complication History of recurrent UTI (urinary tract infection) Personal history of urinary (tract) infection 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, 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, 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 ([facility]) Herpes simplex type 2 (HSV-2) infection affecting , antepartum, unspecified trimester ([facility]) Supervision of high risk in third trimester ([facility])- Primary Unspecified high-risk Pre-existing type 2 diabetes mellitus in in third trimester ([facility]) Diabetes mellitus of mother, complicating , childbirth, or the puerperium, unspecified as to episode of care Herpes simplex type 2 (HSV-2) infection affecting , antepartum, unspecified trimester ([facility]) H/O macrosomia in infant in prior , currently ([facility]) with other poor obstetric history History of pre-eclampsia Personal history of other genital system and obstetric disorders 31 weeks gestation of ([facility]) state, incidental Supervision of high risk in third trimester ([facility])- Primary Unspecified high-risk Pre-existing type 2 diabetes mellitus in in third trimester ([facility]) Diabetes mellitus of mother, complicating , childbirth, or the puerperium, unspecified as to episode of care Exposure to parvovirus Contact with or exposure to other viral diseases History of pre-eclampsia Personal history of other genital system and obstetric disorders Pre-existing type 2 diabetes mellitus in in third trimester ([facility])- Primary Diabetes mellitus of mother, complicating , childbirth, or the puerperium, unspecified as to episode of care History of pre-eclampsia Personal history of other genital system and obstetric disorders H/O macrosomia in infant in prior , currently ([facility]) with other poor obstetric history 33 weeks gestation of ([facility]) state, incidental Request for sterilization Herpes simplex type 2 (HSV-2) infection affecting , antepartum, unspecified trimester ([facility]) Pre-existing type 2 diabetes mellitus in in first trimester ([facility])- Primary Diabetes mellitus of mother, complicating , childbirth, or the puerperium, unspecified as to episode of care 34 weeks gestation of ([facility]) state, incidental documented in this encounter [facility] note* Diagnosis Pre-existing type 2 diabetes mellitus in in first trimester ([facility])- Primary Diabetes mellitus of mother, complicating , childbirth, or the puerperium, unspecified as to episode of care History of pre-eclampsia Personal history of other genital system and obstetric disorders H/O macrosomia in in prior , currently ([facility]) with other poor obstetric history 17 weeks gestation of ([facility]) state, incidental Encounter for screening for malformation using ultrasound ([facility]) Obesity affecting in first trimester, unspecified obesity type ([facility])- Primary Herpes simplex type 2 (HSV-2) infection affecting , antepartum, unspecified trimester ([facility]) Pre-existing type 2 diabetes mellitus in in first trimester ([facility]) Diabetes mellitus of mother, complicating , childbirth, or the puerperium, unspecified as to episode of care 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 Encounter for supervision of high risk in first trimester, antepartum ([facility]) 21 weeks gestation of ([facility]) state, incidental Pre-existing type 2 diabetes mellitus in in first trimester ([facility])- Primary Diabetes mellitus of mother, complicating , childbirth, or the puerperium, unspecified as to episode of care Obesity affecting in first trimester, unspecified obesity type ([facility]) History of pre-eclampsia Personal history of other genital system and obstetric disorders H/O macrosomia in infant in prior , currently ([facility]) with other poor obstetric history History of bipolar disorder Personal history of affective disorder 21 weeks gestation of ([facility]) state, incidental Encounter for anatomic survey ([facility]) Encounter for anatomic survey Supervision of high risk in third trimester ([facility])- Primary Unspecified high-risk History of pre-eclampsia Personal history of other genital system and obstetric disorders 29 weeks gestation of ([facility]) state, incidental Pre-existing type 2 diabetes mellitus in in third trimester ([facility]) Diabetes mellitus of mother, complicating , childbirth, or the puerperium, unspecified as to episode of care 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 Pre-existing type 2 diabetes mellitus in in first trimester ([facility]) Diabetes mellitus of mother, complicating , childbirth, or the puerperium, unspecified as to episode of care Tobacco smoking complicating in first trimester ([facility]) Tobacco use disorder complicating , childbirth, or the puerperium, antepartum condition or complication History of recurrent UTI (urinary tract infection) Personal history of urinary (tract) infection 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, 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, 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 ([facility]) Herpes simplex type 2 (HSV-2) infection affecting , antepartum, unspecified trimester ([facility]) Supervision of high risk in third trimester ([facility])- Primary Unspecified high-risk Pre-existing type 2 diabetes mellitus in in third trimester ([facility]) Diabetes mellitus of mother, complicating , childbirth, or the puerperium, unspecified as to episode of care Herpes simplex type 2 (HSV-2) infection affecting , antepartum, unspecified trimester ([facility]) H/O macrosomia in in prior , currently ([facility]) with other poor obstetric history History of pre-eclampsia Personal history of other genital system and obstetric disorders 31 weeks gestation of ([facility]) state, incidental Supervision of high risk in third trimester ([facility])- Primary Unspecified high-risk Pre-existing type 2 diabetes mellitus in in third trimester ([facility]) Diabetes mellitus of mother, complicating , childbirth, or the puerperium, unspecified as to episode of care Exposure to parvovirus Contact with or exposure to other viral diseases History of pre-eclampsia Personal history of other genital system and obstetric disorders Pre-existing type 2 diabetes mellitus in in third trimester ([facility])- Primary Diabetes mellitus of mother, complicating , childbirth, or the puerperium, unspecified as to episode of care History of pre-eclampsia Personal history of other genital system and obstetric disorders H/O macrosomia in infant in prior , currently ([facility]) with other poor obstetric history 33 weeks gestation of ([facility]) state, incidental Request for sterilization Herpes simplex type 2 (HSV-2) infection affecting , antepartum, unspecified trimester ([facility]) Pre-existing type 2 diabetes mellitus in in third trimester ([facility])- Primary Diabetes mellitus of mother, complicating , childbirth, or the puerperium, unspecified as to episode of care pruritus, third trimester ([facility]) History of pre-eclampsia Personal history of other genital system and obstetric disorders H/O macrosomia in in prior , currently ([facility]) with other poor obstetric history 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 note* Diagnosis Pre-existing type 2 diabetes mellitus in in first trimester ([facility])- Primary Diabetes mellitus of mother, complicating , childbirth, or the puerperium, unspecified as to episode of care History of pre-eclampsia Personal history of other genital system and obstetric disorders H/O macrosomia in infant in prior , currently ([facility]) with other poor obstetric history 17 weeks gestation of ([facility]) state, incidental Encounter for screening for malformation using ultrasound ([facility]) Obesity affecting in first trimester, unspecified obesity type ([facility])- Primary Herpes simplex type 2 (HSV-2) infection affecting , antepartum, unspecified trimester ([facility]) Pre-existing type 2 diabetes mellitus in in first trimester ([facility]) Diabetes mellitus of mother, complicating , childbirth, or the puerperium, unspecified as to episode of care 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 Encounter for supervision of high risk in first trimester, antepartum ([facility]) 21 weeks gestation of ([facility]) state, incidental Pre-existing type 2 diabetes mellitus in in first trimester ([facility])- Primary Diabetes mellitus of mother, complicating , childbirth, or the puerperium, unspecified as to episode of care Obesity affecting in first trimester, unspecified obesity type ([facility]) History of pre-eclampsia Personal history of other genital system and obstetric disorders H/O macrosomia in infant in prior , currently ([facility]) with other poor obstetric history History of bipolar disorder Personal history of affective disorder 21 weeks gestation of ([facility]) state, incidental Encounter for anatomic survey ([facility]) Encounter for anatomic survey Supervision of high risk in third trimester ([facility])- Primary Unspecified high-risk History of pre-eclampsia Personal history of other genital system and obstetric disorders 29 weeks gestation of ([facility]) state, incidental Pre-existing type 2 diabetes mellitus in in third trimester ([facility]) Diabetes mellitus of mother, complicating , childbirth, or the puerperium, unspecified as to episode of care 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 Pre-existing type 2 diabetes mellitus in in first trimester ([facility]) Diabetes mellitus of mother, complicating , childbirth, or the puerperium, unspecified as to episode of care Tobacco smoking complicating in first trimester ([facility]) Tobacco use disorder complicating , childbirth, or the puerperium, antepartum condition or complication History of recurrent UTI (urinary tract infection) Personal history of urinary (tract) infection 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, 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, 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 fpc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 ([facility]) Herpes simplex type 2 (HSV-2) infection affecting , antepartum, unspecified trimester ([facility]) Supervision of high risk in third trimester ([facility])- Primary Unspecified high-risk Pre-existing type 2 diabetes mellitus in in third trimester ([facility]) Diabetes mellitus of mother, complicating , childbirth, or the puerperium, unspecified as to episode of care Herpes simplex type 2 (HSV-2) infection affecting , antepartum, unspecified trimester ([facility]) H/O macrosomia in infant in prior , currently ([facility]) with other poor obstetric history History of pre-eclampsia Personal history of other genital system and obstetric disorders 31 weeks gestation of ([facility]) state, incidental Supervision of high risk in third trimester ([facility])- Primary Unspecified high-risk Pre-existing type 2 diabetes mellitus in in third trimester ([facility]) Diabetes mellitus of mother, complicating , childbirth, or the puerperium, unspecified as to episode of care Exposure to parvovirus Contact with or exposure to other viral diseases History of pre-eclampsia Personal history of other genital system and obstetric disorders Pre-existing type 2 diabetes mellitus in in third trimester ([facility])- Primary Diabetes mellitus of mother, complicating , childbirth, or the puerperium, unspecified as to episode of care History of pre-eclampsia Personal history of other genital system and obstetric disorders H/O macrosomia in in prior , currently ([facility]) with other poor obstetric history 33 weeks gestation of ([facility]) state, incidental Request for sterilization Herpes simplex type 2 (HSV-2) infection affecting , antepartum, unspecified trimester ([facility]) Pre-existing type 2 diabetes mellitus in in third trimester ([facility])- Primary Diabetes mellitus of mother, complicating , childbirth, or the puerperium, unspecified as to episode of care 35 weeks gestation of ([facility]) state, incidental Supervision of high risk in third trimester ([facility]) Unspecified high-risk documented in this encounter [facility] note* Diagnosis Pre-existing type 2 diabetes mellitus in in first trimester ([facility])- Primary Diabetes mellitus of mother, complicating , childbirth, or the puerperium, unspecified as to episode of care History of pre-eclampsia Personal history of other genital system and obstetric disorders H/O macrosomia in infant in prior , currently ([facility]) with other poor obstetric history 17 weeks gestation of ([facility]) state, incidental Encounter for screening for malformation using ultrasound ([facility]) Obesity affecting in first trimester, unspecified obesity type ([facility])- Primary Herpes simplex type 2 (HSV-2) infection affecting , antepartum, unspecified trimester ([facility]) Pre-existing type 2 diabetes mellitus in in first trimester ([facility]) Diabetes mellitus of mother, complicating , childbirth, or the puerperium, unspecified as to episode of care 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 Encounter for supervision of high risk in first trimester, antepartum ([facility]) 21 weeks gestation of ([facility]) state, incidental Pre-existing type 2 diabetes mellitus in in first trimester ([facility])- Primary Diabetes mellitus of mother, complicating , childbirth, or the puerperium, unspecified as to episode of care Obesity affecting in first trimester, unspecified obesity type ([facility]) History of pre-eclampsia Personal history of other genital system and obstetric disorders H/O macrosomia in infant in prior , currently ([facility]) with other poor obstetric history History of bipolar disorder Personal history of affective disorder 21 weeks gestation of ([facility]) state, incidental Encounter for anatomic survey ([facility]) Encounter for anatomic survey Supervision of high risk in third trimester ([facility])- Primary Unspecified high-risk History of pre-eclampsia Personal history of other genital system and obstetric disorders 29 weeks gestation of ([facility]) state, incidental Pre-existing type 2 diabetes mellitus in in third trimester ([facility]) Diabetes mellitus of mother, complicating , childbirth, or the puerperium, unspecified as to episode of care 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 Pre-existing type 2 diabetes mellitus in in first trimester ([facility]) Diabetes mellitus of mother, complicating , childbirth, or the puerperium, unspecified as to episode of care Tobacco smoking complicating in first trimester ([facility]) Tobacco use disorder complicating , childbirth, or the puerperium, antepartum condition or complication History of recurrent UTI (urinary tract infection) Personal history of urinary (tract) infection 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, 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, 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 fpc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 ([facility]) Herpes simplex type 2 (HSV-2) infection affecting , antepartum, unspecified trimester ([facility]) Supervision of high risk in third trimester ([facility])- Primary Unspecified high-risk Pre-existing type 2 diabetes mellitus in in third trimester ([facility]) Diabetes mellitus of mother, complicating , childbirth, or the puerperium, unspecified as to episode of care Herpes simplex type 2 (HSV-2) infection affecting , antepartum, unspecified trimester ([facility]) H/O macrosomia in in prior , currently ([facility]) with other poor obstetric history History of pre-eclampsia Personal history of other genital system and obstetric disorders 31 weeks gestation of ([facility]) state, incidental Supervision of high risk in third trimester ([facility])- Primary Unspecified high-risk Pre-existing type 2 diabetes mellitus in in third trimester ([facility]) Diabetes mellitus of mother, complicating , childbirth, or the puerperium, unspecified as to episode of care Exposure to parvovirus Contact with or exposure to other viral diseases History of pre-eclampsia Personal history of other genital system and obstetric disorders Pre-existing type 2 diabetes mellitus in in third trimester ([facility])- Primary Diabetes mellitus of mother, complicating , childbirth, or the puerperium, unspecified as to episode of care History of pre-eclampsia Personal history of other genital system and obstetric disorders H/O macrosomia in infant in prior , currently ([facility]) with other poor obstetric history 33 weeks gestation of ([facility]) state, incidental Request for sterilization Herpes simplex type 2 (HSV-2) infection affecting , antepartum, unspecified trimester ([facility]) Pre-existing type 2 diabetes mellitus in in first trimester ([facility])- Primary Diabetes mellitus of mother, complicating , childbirth, or the puerperium, unspecified as to episode of care 35 weeks gestation of ([facility]) state, incidental documented in this encounter [facility] note* Diagnosis Pre-existing type 2 diabetes mellitus in in first trimester ([facility])- Primary Diabetes mellitus of mother, complicating , childbirth, or the puerperium, unspecified as to episode of care History of pre-eclampsia Personal history of other genital system and obstetric disorders H/O macrosomia in in prior , currently ([facility]) with other poor obstetric history 17 weeks gestation of ([facility]) state, incidental Encounter for screening for malformation using ultrasound ([facility]) Obesity affecting in first trimester, unspecified obesity type ([facility])- Primary Herpes simplex type 2 (HSV-2) infection affecting , antepartum, unspecified trimester ([facility]) Pre-existing type 2 diabetes mellitus in in first trimester ([facility]) Diabetes mellitus of mother, complicating , childbirth, or the puerperium, unspecified as to episode of care 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 Encounter for supervision of high risk in first trimester, antepartum ([facility]) 21 weeks gestation of ([facility]) state, incidental Pre-existing type 2 diabetes mellitus in in first trimester ([facility])- Primary Diabetes mellitus of mother, complicating , childbirth, or the puerperium, unspecified as to episode of care Obesity affecting in first trimester, unspecified obesity type ([facility]) History of pre-eclampsia Personal history of other genital system and obstetric disorders H/O macrosomia in infant in prior , currently ([facility]) with other poor obstetric history History of bipolar disorder Personal history of affective disorder 21 weeks gestation of ([facility]) state, incidental Encounter for anatomic survey ([facility]) Encounter for anatomic survey Supervision of high risk in third trimester ([facility])- Primary Unspecified high-risk History of pre-eclampsia Personal history of other genital system and obstetric disorders 29 weeks gestation of ([facility]) state, incidental Pre-existing type 2 diabetes mellitus in in third trimester ([facility]) Diabetes mellitus of mother, complicating , childbirth, or the puerperium, unspecified as to episode of care 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 Pre-existing type 2 diabetes mellitus in in first trimester ([facility]) Diabetes mellitus of mother, complicating , childbirth, or the puerperium, unspecified as to episode of care Tobacco smoking complicating in first trimester ([facility]) Tobacco use disorder complicating , childbirth, or the puerperium, antepartum condition or complication History of recurrent UTI (urinary tract infection) Personal history of urinary (tract) infection 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, 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, 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 fpc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 ([facility]) Herpes simplex type 2 (HSV-2) infection affecting , antepartum, unspecified trimester ([facility]) Supervision of high risk in third trimester ([facility])- Primary Unspecified high-risk Pre-existing type 2 diabetes mellitus in in third trimester ([facility]) Diabetes mellitus of mother, complicating , childbirth, or the puerperium, unspecified as to episode of care Herpes simplex type 2 (HSV-2) infection affecting , antepartum, unspecified trimester ([facility]) H/O macrosomia in in prior , currently ([facility]) with other poor obstetric history History of pre-eclampsia Personal history of other genital system and obstetric disorders 31 weeks gestation of ([facility]) state, incidental Supervision of high risk in third trimester ([facility])- Primary Unspecified high-risk Pre-existing type 2 diabetes mellitus in in third trimester ([facility]) Diabetes mellitus of mother, complicating , childbirth, or the puerperium, unspecified as to episode of care Exposure to parvovirus Contact with or exposure to other viral diseases History of pre-eclampsia Personal history of other genital system and obstetric disorders Pre-existing type 2 diabetes mellitus in in third trimester ([facility])- Primary Diabetes mellitus of mother, complicating , childbirth, or the puerperium, unspecified as to episode of care History of pre-eclampsia Personal history of other genital system and obstetric disorders H/O macrosomia in infant in prior , currently ([facility]) with other poor obstetric history 33 weeks gestation of ([facility]) state, incidental Request for sterilization Herpes simplex type 2 (HSV-2) infection affecting , antepartum, unspecified trimester ([facility]) Pre-existing type 2 diabetes mellitus in in third trimester ([facility])- Primary Diabetes mellitus of mother, complicating , childbirth, or the puerperium, unspecified as to episode of care 35 weeks gestation of ([facility]) state, incidental Vaginal itching Pruritus of genital organs [facility] Diagnosis Pre-existing type 2 diabetes mellitus in in first trimester ([facility])- Primary Diabetes mellitus of mother, complicating , childbirth, or the puerperium, unspecified as to episode of care History of pre-eclampsia Personal history of other genital system and obstetric disorders H/O macrosomia in in prior , currently ([facility]) with other poor obstetric history 17 weeks gestation of ([facility]) state, incidental Encounter for screening for malformation using ultrasound ([facility]) Obesity affecting in first trimester, unspecified obesity type ([facility])- Primary Herpes simplex type 2 (HSV-2) infection affecting , antepartum, unspecified trimester ([facility]) Pre-existing type 2 diabetes mellitus in in first trimester ([facility]) Diabetes mellitus of mother, complicating , childbirth, or the puerperium, unspecified as to episode of care 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 Encounter for supervision of high risk in first trimester, antepartum ([facility]) 21 weeks gestation of ([facility]) state, incidental Pre-existing type 2 diabetes mellitus in in first trimester ([facility])- Primary Diabetes mellitus of mother, complicating , childbirth, or the puerperium, unspecified as to episode of care Obesity affecting in first trimester, unspecified obesity type ([facility]) History of pre-eclampsia Personal history of other genital system and obstetric disorders H/O macrosomia in infant in prior , currently ([facility]) with other poor obstetric history History of bipolar disorder Personal history of affective disorder 21 weeks gestation of ([facility]) state, incidental Encounter for anatomic survey ([facility]) Encounter for anatomic survey Supervision of high risk in third trimester ([facility])- Primary Unspecified high-risk History of pre-eclampsia Personal history of other genital system and obstetric disorders 29 weeks gestation of ([facility]) state, incidental Pre-existing type 2 diabetes mellitus in in third trimester ([facility]) Diabetes mellitus of mother, complicating , childbirth, or the puerperium, unspecified as to episode of care 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 Pre-existing type 2 diabetes mellitus in in first trimester ([facility]) Diabetes mellitus of mother, complicating , childbirth, or the puerperium, unspecified as to episode of care Tobacco smoking complicating in first trimester ([facility]) Tobacco use disorder complicating , childbirth, or the puerperium, antepartum condition or complication History of recurrent UTI (urinary tract infection) Personal history of urinary (tract) infection 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, 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, 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 fpc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 ([facility]) Herpes simplex type 2 (HSV-2) infection affecting , antepartum, unspecified trimester ([facility]) Supervision of high risk in third trimester ([facility])- Primary Unspecified high-risk Pre-existing type 2 diabetes mellitus in in third trimester ([facility]) Diabetes mellitus of mother, complicating , childbirth, or the puerperium, unspecified as to episode of care Herpes simplex type 2 (HSV-2) infection affecting , antepartum, unspecified trimester ([facility]) H/O macrosomia in in prior , currently ([facility]) with other poor obstetric history History of pre-eclampsia Personal history of other genital system and obstetric disorders 31 weeks gestation of ([facility]) state, incidental Supervision of high risk in third trimester ([facility])- Primary Unspecified high-risk Pre-existing type 2 diabetes mellitus in in third trimester ([facility]) Diabetes mellitus of mother, complicating , childbirth, or the puerperium, unspecified as to episode of care Exposure to parvovirus Contact with or exposure to other viral diseases History of pre-eclampsia Personal history of other genital system and obstetric disorders Pre-existing type 2 diabetes mellitus in in third trimester ([facility])- Primary Diabetes mellitus of mother, complicating , childbirth, or the puerperium, unspecified as to episode of care History of pre-eclampsia Personal history of other genital system and obstetric disorders H/O macrosomia in infant in prior , currently ([facility]) with other poor obstetric history 33 weeks gestation of ([facility]) state, incidental Request for sterilization Herpes simplex type 2 (HSV-2) infection affecting , antepartum, unspecified trimester ([facility]) Obesity affecting in first trimester, unspecified obesity type ([facility])- Primary Pre-existing type 2 diabetes mellitus in in first trimester ([facility]) Diabetes mellitus of mother, complicating , childbirth, or the puerperium, unspecified as to episode of care documented in this encounter [facility] note* Diagnosis Pre-existing type 2 diabetes mellitus in in first trimester ([facility])- Primary Diabetes mellitus of mother, complicating , childbirth, or the puerperium, unspecified as to episode of care History of pre-eclampsia Personal history of other genital system and obstetric disorders H/O macrosomia in in prior , currently ([facility]) with other poor obstetric history 17 weeks gestation of ([facility]) state, incidental Encounter for screening for malformation using ultrasound ([facility]) Obesity affecting in first trimester, unspecified obesity type ([facility])- Primary Herpes simplex type 2 (HSV-2) infection affecting , antepartum, unspecified trimester ([facility]) Pre-existing type 2 diabetes mellitus in in first trimester ([facility]) Diabetes mellitus of mother, complicating , childbirth, or the puerperium, unspecified as to episode of care 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 Encounter for supervision of high risk in first trimester, antepartum ([facility]) 21 weeks gestation of ([facility]) state, incidental Pre-existing type 2 diabetes mellitus in in first trimester ([facility])- Primary Diabetes mellitus of mother, complicating , childbirth, or the puerperium, unspecified as to episode of care Obesity affecting in first trimester, unspecified obesity type ([facility]) History of pre-eclampsia Personal history of other genital system and obstetric disorders H/O macrosomia in infant in prior , currently ([facility]) with other poor obstetric history History of bipolar disorder Personal history of affective disorder 21 weeks gestation of ([facility]) state, incidental Encounter for anatomic survey ([facility]) Encounter for anatomic survey Supervision of high risk in third trimester ([facility])- Primary Unspecified high-risk History of pre-eclampsia Personal history of other genital system and obstetric disorders 29 weeks gestation of ([facility]) state, incidental Pre-existing type 2 diabetes mellitus in in third trimester ([facility]) Diabetes mellitus of mother, complicating , childbirth, or the puerperium, unspecified as to episode of care 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 Pre-existing type 2 diabetes mellitus in in first trimester ([facility]) Diabetes mellitus of mother, complicating , childbirth, or the puerperium, unspecified as to episode of care Tobacco smoking complicating in first trimester ([facility]) Tobacco use disorder complicating , childbirth, or the puerperium, antepartum condition or complication History of recurrent UTI (urinary tract infection) Personal history of urinary (tract) infection 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, 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, 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 ([facility]) Herpes simplex type 2 (HSV-2) infection affecting , antepartum, unspecified trimester ([facility]) Supervision of high risk in third trimester ([facility])- Primary Unspecified high-risk Pre-existing type 2 diabetes mellitus in in third trimester ([facility]) Diabetes mellitus of mother, complicating , childbirth, or the puerperium, unspecified as to episode of care Herpes simplex type 2 (HSV-2) infection affecting , antepartum, unspecified trimester ([facility]) H/O macrosomia in in prior , currently ([facility]) with other poor obstetric history History of pre-eclampsia Personal history of other genital system and obstetric disorders 31 weeks gestation of ([facility]) state, incidental Supervision of high risk in third trimester ([facility])- Primary Unspecified high-risk Pre-existing type 2 diabetes mellitus in in third trimester ([facility]) Diabetes mellitus of mother, complicating , childbirth, or the puerperium, unspecified as to episode of care Exposure to parvovirus Contact with or exposure to other viral diseases History of pre-eclampsia Personal history of other genital system and obstetric disorders Pre-existing type 2 diabetes mellitus in in third trimester ([facility])- Primary Diabetes mellitus of mother, complicating , childbirth, or the puerperium, unspecified as to episode of care History of pre-eclampsia Personal history of other genital system and obstetric disorders H/O macrosomia in infant in prior , currently ([facility]) with other poor obstetric history 33 weeks gestation of ([facility]) state, incidental Request for sterilization Herpes simplex type 2 (HSV-2) infection affecting , antepartum, unspecified trimester ([facility]) History of herpes genitalis- Primary Personal history of other infectious and parasitic disease Pre-existing type 2 diabetes mellitus in in third trimester ([facility]) Diabetes mellitus of mother, complicating , childbirth, or the puerperium, unspecified as to episode of care History of pre-eclampsia Personal history of other genital system and obstetric disorders 36 weeks gestation of ([facility]) state, incidental * Assessment & Plan Note - William Gramajo MD - 11/25/2024 10:24 AM EDTAssociated Problem(s): History of pre-eclampsia Orders: URINE OB DIP B/O [facility] Diagnosis Pre-existing type 2 diabetes mellitus in in first trimester ([facility])- Primary Diabetes mellitus of mother, complicating , childbirth, or the puerperium, unspecified as to episode of care History of pre-eclampsia Personal history of other genital system and obstetric disorders H/O macrosomia in in prior , currently ([facility]) with other poor obstetric history 17 weeks gestation of ([facility]) state, incidental Encounter for screening for malformation using ultrasound ([facility]) Obesity affecting in first trimester, unspecified obesity type ([facility])- Primary Herpes simplex type 2 (HSV-2) infection affecting , antepartum, unspecified trimester ([facility]) Pre-existing type 2 diabetes mellitus in in first trimester ([facility]) Diabetes mellitus of mother, complicating , childbirth, or the puerperium, unspecified as to episode of care 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 Encounter for supervision of high risk in first trimester, antepartum ([facility]) 21 weeks gestation of ([facility]) state, incidental Pre-existing type 2 diabetes mellitus in in first trimester ([facility])- Primary Diabetes mellitus of mother, complicating , childbirth, or the puerperium, unspecified as to episode of care Obesity affecting in first trimester, unspecified obesity type ([facility]) History of pre-eclampsia Personal history of other genital system and obstetric disorders H/O macrosomia in infant in prior , currently ([facility]) with other poor obstetric history History of bipolar disorder Personal history of affective disorder 21 weeks gestation of ([facility]) state, incidental Encounter for anatomic survey ([facility]) Encounter for anatomic survey Supervision of high risk in third trimester ([facility])- Primary Unspecified high-risk History of pre-eclampsia Personal history of other genital system and obstetric disorders 29 weeks gestation of ([facility]) state, incidental Pre-existing type 2 diabetes mellitus in in third trimester ([facility]) Diabetes mellitus of mother, complicating , childbirth, or the puerperium, unspecified as to episode of care 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 Pre-existing type 2 diabetes mellitus in in first trimester ([facility]) Diabetes mellitus of mother, complicating , childbirth, or the puerperium, unspecified as to episode of care Tobacco smoking complicating in first trimester ([facility]) Tobacco use disorder complicating , childbirth, or the puerperium, antepartum condition or complication History of recurrent UTI (urinary tract infection) Personal history of urinary (tract) infection 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, 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, 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 ([facility]) Herpes simplex type 2 (HSV-2) infection affecting , antepartum, unspecified trimester ([facility]) Supervision of high risk in third trimester ([facility])- Primary Unspecified high-risk Pre-existing type 2 diabetes mellitus in in third trimester ([facility]) Diabetes mellitus of mother, complicating , childbirth, or the puerperium, unspecified as to episode of care Herpes simplex type 2 (HSV-2) infection affecting , antepartum, unspecified trimester ([facility]) H/O macrosomia in infant in prior , currently ([facility]) with other poor obstetric history History of pre-eclampsia Personal history of other genital system and obstetric disorders 31 weeks gestation of ([facility]) state, incidental Supervision of high risk in third trimester ([facility])- Primary Unspecified high-risk Pre-existing type 2 diabetes mellitus in in third trimester ([facility]) Diabetes mellitus of mother, complicating , childbirth, or the puerperium, unspecified as to episode of care Exposure to parvovirus Contact with or exposure to other viral diseases History of pre-eclampsia Personal history of other genital system and obstetric disorders Pre-existing type 2 diabetes mellitus in in third trimester ([facility])- Primary Diabetes mellitus of mother, complicating , childbirth, or the puerperium, unspecified as to episode of care History of pre-eclampsia Personal history of other genital system and obstetric disorders H/O macrosomia in in prior , currently ([facility]) with other poor obstetric history 33 weeks gestation of ([facility]) state, incidental Request for sterilization Herpes simplex type 2 (HSV-2) infection affecting , antepartum, unspecified trimester ([facility]) History of herpes genitalis- Primary Personal history of other infectious and parasitic disease Pre-existing type 2 diabetes mellitus in in third trimester ([facility]) Diabetes mellitus of mother, complicating , childbirth, or the puerperium, unspecified as to episode of care History of pre-eclampsia Personal history of other genital system and obstetric disorders 36 weeks gestation of ([facility]) state, incidental Pre-existing type 2 diabetes mellitus in in third trimester ([facility])- Primary Diabetes mellitus of mother, complicating , childbirth, or the puerperium, unspecified as to episode of care Pre-existing type 2 diabetes mellitus in in first trimester ([facility]) Diabetes mellitus of mother, complicating , childbirth, or the puerperium, unspecified as to episode of care documented in this encounter [facility] note* Diagnosis Pre-existing type 2 diabetes mellitus in in first trimester ([facility])- Primary Diabetes mellitus of mother, complicating , childbirth, or the puerperium, unspecified as to episode of care History of pre-eclampsia Personal history of other genital system and obstetric disorders H/O macrosomia in infant in prior , currently ([facility]) with other poor obstetric history 17 weeks gestation of ([facility]) state, incidental Encounter for screening for malformation using ultrasound ([facility]) Obesity affecting in first trimester, unspecified obesity type ([facility])- Primary Herpes simplex type 2 (HSV-2) infection affecting , antepartum, unspecified trimester ([facility]) Pre-existing type 2 diabetes mellitus in in first trimester ([facility]) Diabetes mellitus of mother, complicating , childbirth, or the puerperium, unspecified as to episode of care 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 Encounter for supervision of high risk in first trimester, antepartum ([facility]) 21 weeks gestation of ([facility]) state, incidental Pre-existing type 2 diabetes mellitus in in first trimester ([facility])- Primary Diabetes mellitus of mother, complicating , childbirth, or the puerperium, unspecified as to episode of care Obesity affecting in first trimester, unspecified obesity type ([facility]) History of pre-eclampsia Personal history of other genital system and obstetric disorders H/O macrosomia in infant in prior , currently ([facility]) with other poor obstetric history History of bipolar disorder Personal history of affective disorder 21 weeks gestation of ([facility]) state, incidental Encounter for anatomic survey ([facility]) Encounter for anatomic survey Supervision of high risk in third trimester ([facility])- Primary Unspecified high-risk History of pre-eclampsia Personal history of other genital system and obstetric disorders 29 weeks gestation of ([facility]) state, incidental Pre-existing type 2 diabetes mellitus in in third trimester ([facility]) Diabetes mellitus of mother, complicating , childbirth, or the puerperium, unspecified as to episode of care 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 Pre-existing type 2 diabetes mellitus in in first trimester ([facility]) Diabetes mellitus of mother, complicating , childbirth, or the puerperium, unspecified as to episode of care Tobacco smoking complicating in first trimester ([facility]) Tobacco use disorder complicating , childbirth, or the puerperium, antepartum condition or complication History of recurrent UTI (urinary tract infection) Personal history of urinary (tract) infection 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, 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, 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 fpc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 ([facility]) Herpes simplex type 2 (HSV-2) infection affecting , antepartum, unspecified trimester ([facility]) Supervision of high risk in third trimester ([facility])- Primary Unspecified high-risk Pre-existing type 2 diabetes mellitus in in third trimester ([facility]) Diabetes mellitus of mother, complicating , childbirth, or the puerperium, unspecified as to episode of care Herpes simplex type 2 (HSV-2) infection affecting , antepartum, unspecified trimester ([facility]) H/O macrosomia in infant in prior , currently ([facility]) with other poor obstetric history History of pre-eclampsia Personal history of other genital system and obstetric disorders 31 weeks gestation of ([facility]) state, incidental Supervision of high risk in third trimester ([facility])- Primary Unspecified high-risk Pre-existing type 2 diabetes mellitus in in third trimester ([facility]) Diabetes mellitus of mother, complicating , childbirth, or the puerperium, unspecified as to episode of care Exposure to parvovirus Contact with or exposure to other viral diseases History of pre-eclampsia Personal history of other genital system and obstetric disorders Pre-existing type 2 diabetes mellitus in in third trimester ([facility])- Primary Diabetes mellitus of mother, complicating , childbirth, or the puerperium, unspecified as to episode of care History of pre-eclampsia Personal history of other genital system and obstetric disorders H/O macrosomia in in prior , currently ([facility]) with other poor obstetric history 33 weeks gestation of ([facility]) state, incidental Request for sterilization Herpes simplex type 2 (HSV-2) infection affecting , antepartum, unspecified trimester ([facility]) History of herpes genitalis- Primary Personal history of other infectious and parasitic disease Pre-existing type 2 diabetes mellitus in in third trimester ([facility]) Diabetes mellitus of mother, complicating , childbirth, or the puerperium, unspecified as to episode of care History of pre-eclampsia Personal history of other genital system and obstetric disorders 36 weeks gestation of ([facility]) state, incidental Pre-existing type 2 diabetes mellitus in in third trimester ([facility])- Primary Diabetes mellitus of mother, complicating , childbirth, or the puerperium, unspecified as to episode of care 37 weeks gestation of ([facility]) state, incidental Supervision of high risk in third trimester ([facility]) Unspecified high-risk documented in this encounter [facility] note* Diagnosis Pre-existing type 2 diabetes mellitus in in first trimester ([facility])- Primary Diabetes mellitus of mother, complicating , childbirth, or the puerperium, unspecified as to episode of care History of pre-eclampsia Personal history of other genital system and obstetric disorders H/O macrosomia in infant in prior , currently ([facility]) with other poor obstetric history 17 weeks gestation of ([facility]) state, incidental Encounter for screening for malformation using ultrasound ([facility]) Obesity affecting in first trimester, unspecified obesity type ([facility])- Primary Herpes simplex type 2 (HSV-2) infection affecting , antepartum, unspecified trimester ([facility]) Pre-existing type 2 diabetes mellitus in in first trimester ([facility]) Diabetes mellitus of mother, complicating , childbirth, or the puerperium, unspecified as to episode of care 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 Encounter for supervision of high risk in first trimester, antepartum ([facility]) 21 weeks gestation of ([facility]) state, incidental Pre-existing type 2 diabetes mellitus in in first trimester ([facility])- Primary Diabetes mellitus of mother, complicating , childbirth, or the puerperium, unspecified as to episode of care Obesity affecting in first trimester, unspecified obesity type ([facility]) History of pre-eclampsia Personal history of other genital system and obstetric disorders H/O macrosomia in infant in prior , currently ([facility]) with other poor obstetric history History of bipolar disorder Personal history of affective disorder 21 weeks gestation of ([facility]) state, incidental Encounter for anatomic survey ([facility]) Encounter for anatomic survey Supervision of high risk in third trimester ([facility])- Primary Unspecified high-risk History of pre-eclampsia Personal history of other genital system and obstetric disorders 29 weeks gestation of ([facility]) state, incidental Pre-existing type 2 diabetes mellitus in in third trimester ([facility]) Diabetes mellitus of mother, complicating , childbirth, or the puerperium, unspecified as to episode of care 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 Pre-existing type 2 diabetes mellitus in in first trimester ([facility]) Diabetes mellitus of mother, complicating , childbirth, or the puerperium, unspecified as to episode of care Tobacco smoking complicating in first trimester ([facility]) Tobacco use disorder complicating , childbirth, or the puerperium, antepartum condition or complication History of recurrent UTI (urinary tract infection) Personal history of urinary (tract) infection 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, 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, 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 fpc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 ([facility]) Herpes simplex type 2 (HSV-2) infection affecting , antepartum, unspecified trimester ([facility]) Supervision of high risk in third trimester ([facility])- Primary Unspecified high-risk Pre-existing type 2 diabetes mellitus in in third trimester ([facility]) Diabetes mellitus of mother, complicating , childbirth, or the puerperium, unspecified as to episode of care Herpes simplex type 2 (HSV-2) infection affecting , antepartum, unspecified trimester ([facility]) H/O macrosomia in in prior , currently ([facility]) with other poor obstetric history History of pre-eclampsia Personal history of other genital system and obstetric disorders 31 weeks gestation of ([facility]) state, incidental Supervision of high risk in third trimester ([facility])- Primary Unspecified high-risk Pre-existing type 2 diabetes mellitus in in third trimester ([facility]) Diabetes mellitus of mother, complicating , childbirth, or the puerperium, unspecified as to episode of care Exposure to parvovirus Contact with or exposure to other viral diseases History of pre-eclampsia Personal history of other genital system and obstetric disorders Pre-existing type 2 diabetes mellitus in in third trimester ([facility])- Primary Diabetes mellitus of mother, complicating , childbirth, or the puerperium, unspecified as to episode of care History of pre-eclampsia Personal history of other genital system and obstetric disorders H/O macrosomia in infant in prior , currently ([facility]) with other poor obstetric history 33 weeks gestation of ([facility]) state, incidental Request for sterilization Herpes simplex type 2 (HSV-2) infection affecting , antepartum, unspecified trimester ([facility]) History of herpes genitalis- Primary Personal history of other infectious and parasitic disease Pre-existing type 2 diabetes mellitus in in third trimester ([facility]) Diabetes mellitus of mother, complicating , childbirth, or the puerperium, unspecified as to episode of care History of pre-eclampsia Personal history of other genital system and obstetric disorders 36 weeks gestation of ([facility]) state, incidental Pre-existing type 2 diabetes mellitus in in first trimester ([facility])- Primary Diabetes mellitus of mother, complicating , childbirth, or the puerperium, unspecified as to episode of care 38 weeks gestation of ([facility]) state, incidental [facility] encounter [facility] Author Mariajose Nickerson [facility] Note Date/Time October 16, 2024 8:00p m [facility] Medical Records Department [address] [place] [address] OB Triage Physician Note 10/16/24 1838 MR#: [id number] Acct: [id number] Name: MELISSA BYRNE Rep #:[id number] : 1995 29 From: Mariajose Nickerson CNM PCP: Dr. Jamari Byrne MD Status:REG CLI Y Location: [place] [address] HPI - General HPI Narrative MELISSA BYRNE, is a 29 F at 31 weeks gestation who presents with lower abdominal pain and tightening. Denies any loss of fluid or vaginal bleeding. Maternal Data Information ADA Calculator Estimated Delivery Date Method Current WG Current Estimate 12/18/24 Manual 31w 0d PFSH PFSH Medical History Seizures Asthma Osteoarthritis Diabetes Home Medications ?Medication ?Instructions ?Recorded ?Last Taken ?Type glipizide 5 mg tablet 5 mg PO BID 01/23/18 Unknown History Held on 10/16/24. Instructions: metformin 1,000 mg tablet 500 mg PO BIDCM 01/23/18 Unk nown History Held on 10/16/24. Instructions: buspirone 15 mg tablet 15 mg PO QDAY 02/26/24 Unkno wn History fluoxetine 40 mg capsule 20 mg PO QDAY Mood 02/26/24 Unknown History insulin lispro 100 unit/mL 23 unit subcut .COMPLEX Unknown History subcutaneous pen (Humalog KwikPen pregestational diabe deacon (U-100) Insulin) HumuLIN N NPH Insulin KwikPen 90 units subcut QHS type II 10/16/24 Unknown History diabetes aspirin 81 mg tablet,delayed 81 mg PO DAILY 10/16/24 U nknown History release (Adult Aspirin Regimen) Allergy/AdvReac Type Severity Reaction Status Date / Time aripiprazole (From Abilify) AdvReac Other Verified 10/16/24 17:43 metoclopramide (From Reglan) AdvReac Other Verified 10/16/24 17:43 ondansetron (From Zofran) AdvReac Vomiting Verified 10/16/24 17:43 quetiapine (From Seroquel) AdvReac Other Verified 10/16/24 17:43 sertraline (From Zoloft) AdvReac Other Verified 10/16/24 17:43 Family History Other Heart disease Hyperlipemia Surgical History History of dilation and curettage History of oral surgery History of cholecystectomy Social History Smoking Status: Current every day smoker alcohol intake: never substance use type: does not use History Elective abortions Hx Para 0 Spontaneous abortions Hx # Term Pregnancies Ectopic pregnancies Hx # Pregnancies Multiple births # of living children Physical Exam Narrative Patient seen at bedside for evaluation. C/O upper abdominal pain and tightening at times. Increased movements today. Has not drank a lot of water - drinking juice most of the day. Assessment & Plan (1) 31 weeks gestation of : (2) Type 2 diabetes mellitus affecting , antepartum: (3) History of herpes genitalis: (4) Asthma: (5) Bipolar 1 disorder: (6) Obesity affecting : PLAN: Plan NST reactive No contractions via TOCO or palpated UA + ketones, protein, glucose , - sent for culture IV- 1000 cc bolus of LR Abdomen is non tender with palpation CE - closed/ thick D/C home with follow up in office on Friday Dr. Julian involved with plan of care 10/16/242000 <Electronically signed by Mariajose kwon CNM> Date _ Mariajose Nickerson CNM Cosigner Signature (if applicable): Date CC: JULIO Nickerson; Dr. 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 She had been at counseling and she had told her counselor that she was thinking about hurting herself. Sister thought she was more on the manic end of the spectrum. She was just discharged on Friday.she will see her counselor tomorrow and she has an upcoming appt with the psychiatrist on November 07. * She was admitted to [facility] for 5 days. She is currently on Prozac 40mg po daily * She had stopped taking her diabetes meds also. She is back on the metformin 1000mg po daily. She was needing short acting insulin in the hospital. * Pt gve her glucometer to her dad so has not been able to check her blood sugars. -[facility] Work Phone: History of Present illness NarrativePatient is a 26-year-old who comes in for test of cure for chlamydia and trichomoniasis. Patient reports that she did take the medication Flagyl and the powdered Zithromax. She has also informed her sexual partners. [facility] Work Phone: Hospital Discharge instructions* Attachments The following attachments cannot be sent through Care Everywhere. * Urinary tract infections in ([place]) * Genital Herpes Discharge Instructions ([place]) [facility]* Attachments The following attachments cannot be sent through Care Everywhere. * Flu Discharge Instructions, Adult ([place]) [facility] Work Phone: Hospital Discharge instructions Additional Instructions keep appointment on [facility] Work Phone: Reason for referral (narrative)* Consultation (Routine) - Authorized Specialty Diagnoses / Procedures Referred By Shell t Referred To Contact Dermatology Diagnoses Necrobiosis lipoidica Jamari Byrne MD [address] [facility], [place] [place] [address] Radha Patel MD [address] [facility] [place] [address] Referral ID Status Reason Start Date Expiration Date Visits Requested Visits Authorized [id number] Authorized Specialty Services Required 12/25/2023 12/24/2024 1 1 [facility] Work Phone: Reason for referral (narrative)* Outpatient Procedure (Routine) - New Request Specialty Diagnoses / Procedures Referred By Contac t Referred To Contact [facility] Diagnoses Pre-existing type 2 diabetes mellitus in in first trimester [place] [address] [place] [address] [address] Referral ID Status Reason Start Date Expiration Date Visits Requested Visits Authorized [id number] New Request Auto-Generat ed Referral 06/15/2024 06/15/2025 1 1 [facility] for referral (narrative)* Diagnostic Procedure Only (Routine) - Authorized Specialty Diagnoses / Procedures Referred By Contac t Referred To Contact [facility] Diagnoses Encounter for anatomic survey Procedures OBSTETRIC ULTRASOUND WHI US PREG UTERUS AFTER 1ST TRIMEST 1 GESTATION William Gramajo MD [address] [place] [address] [address] Referral ID Status Reason Start Date Expiration Date Visits Requested Visits Authorized [id number] Authorized Auto-Generat ed Referral 07/13/2024 07/13/2025 1 1 [facility] for referral (narrative)No reason for referral information [facility] [place] Work Phone: Reason for visit Narrative* Transition of Care (Routine) - Closed Specialty Diagnoses / Procedures Referred By Contac t Referred To Contact Diagnoses complication before (HCC) Procedures MPOWER CONSULT William Gramajo MD [address] [place] [address] Phone: tel: fax: Referral ID Status Reason Start Date Expiration Date V isits Requested Visits Authorized [id number] Closed PCP Requested Referral 09/13/2024 09/13/2025 1 1 [facility] for visit Narrative* Diagnostic Procedure Only (Routine) - Closed Specialty Diagnoses / Procedures Referred By Shell t Referred To Contact [facility] Diagnoses Supervision of high risk in third trimester (HCC) Pre-existing type 2 diabetes mellitus in in first trimester (HCC) Procedures BIOPHYSICAL PROFILE US I BIOPHYSICAL PROFILE NON-STRESS TESTING Piper Julian MD [address] [place] [address] Phone: tel: fax: [facility] [address] [place] [address] Referral ID Status Reason Start Date Expiration Date V isits Requested Visits Authorized [id number] Closed Auto-Generate d Referral 10/05/2024 10/05/2025 10 1 [facility] Summary Purpose Family History No Family History Records Found Grandparent Name Dates Details Family history of diabetes m ellitus(V18.0, Z83.3) Status:Active Mother Name Dates Details Family history of diabetes m ellitus(V18.0, Z83.3) Status:Active Family history of hypertensi on(V17.49, Z82.49) Status:Active Family history of asthma(V17 .5, Z82.5) Status:Active Father Name Dates Details Family history of diabetes m ellitus(V18.0, Z83.3) Status:Active Family history of hypertensi on(V17.49, Z82.49) Status:Active Family history of myocardial infarction(V17.3, Z82.49) Status:Active Family history of cardiac di sorder(V17.49, Z82.49) Status:Active Grandparent Name Dates Details Family history of diabetes m ellitus(V18.0, Z83.3) Status:Active Mother Name Dates Details Family history of diabetes m ellitus(V18.0, Z83.3) Status:Active Family history of hypertensi on(V17.49, Z82.49) Status:Active Family history of asthma(V17 .5, Z82.5) Status:Active Father Name Dates Details Family history of diabetes m ellitus(V18.0, Z83.3) Status:Active Family history of hypertensi on(V17.49, Z82.49) Status:Active Family history of myocardial infarction(V17.3, Z82.49) Status:Active Family history of cardiac di sorder(V17.49, Z82.49) Status:Active Grandparent Name Dates Details Family history of diabetes m ellitus(V18.0, Z83.3) Status:Active Mother Name Dates Details Family history of diabetes m ellitus(V18.0, Z83.3) Status:Active Family history of hypertensi on(V17.49, Z82.49) Status:Active Family history of asthma(V17 .5, Z82.5) Status:Active Father Name Dates Details Family history of diabetes m ellitus(V18.0, Z83.3) Status:Active Family history of hypertensi on(V17.49, Z82.49) Status:Active Family history of myocardial infarction(V17.3, Z82.49) Status:Active Family history of cardiac di sorder(V17.49, Z82.49) Status:Active natural daughter Name Dates Details Family history of TBI (traum atic brain injury)(854.00, S06.9X9A) Status:Active Sibling Name Dates Details FHx: mental illness(V17.0, Z 81.8) Status:Active Grandparent Name Dates Details Family history of diabetes m ellitus(V18.0, Z83.3) Status:Active Mother Name Dates Details Family history of diabetes m ellitus(V18.0, Z83.3) Status:Active Family history of hypertensi on(V17.49, Z82.49) Status:Active Family history of asthma(V17 .5, Z82.5) Status:Active FHx: mental illness(V17.0, Z 81.8) Status:Active Father Name Dates Details Family history of diabetes m ellitus(V18.0, Z83.3) Status:Active Family history of hypertensi on(V17.49, Z82.49) Status:Active Family history of myocardial infarction(V17.3, Z82.49) Status:Active Family history of cardiac di sorder(V17.49, Z82.49) Status:Active Family history of thyroid di sease(V18.19, Z83.49) Status:Active natural daughter Name Dates Details Family history of TBI (traum atic brain injury)(854.00, S06.9X9A) Status:Active Sibling Name Dates Details FHx: mental illness(V17.0, Z 81.8) Status:Active Grandparent Name Dates Details Family history of diabetes m ellitus(V18.0, Z83.3) Status:Active Mother Name Dates Details Family history of diabetes m ellitus(V18.0, Z83.3) Status:Active Family history of hypertensi on(V17.49, Z82.49) Status:Active Family history of asthma(V17 .5, Z82.5) Status:Active FHx: mental illness(V17.0, Z 81.8) Status:Active Father Name Dates Details Family history of diabetes m ellitus(V18.0, Z83.3) Status:Active Family history of hypertensi on(V17.49, Z82.49) Status:Active Family history of myocardial infarction(V17.3, Z82.49) Status:Active Family history of cardiac di sorder(V17.49, Z82.49) Status:Active Family history of thyroid di sease(V18.19, Z83.49) Status:Active natural daughter Name Dates Details Family history of TBI (traum atic brain injury)(854.00, S06.9X9A) Status:Active Sibling Name Dates Details FHx: mental illness(V17.0, Z 81.8) Status:Active Grandparent Name Dates Details Family history of diabetes m ellitus(V18.0, Z83.3) Status:Active Mother Name Dates Details Family history of diabetes m ellitus(V18.0, Z83.3) Status:Active Family history of hypertensi on(V17.49, Z82.49) Status:Active Family history of asthma(V17 .5, Z82.5) Status:Active FHx: mental illness(V17.0, Z 81.8) Status:Active Father Name Dates Details Family history of diabetes m ellitus(V18.0, Z83.3) Status:Active Family history of hypertensi on(V17.49, Z82.49) Status:Active Family history of myocardial infarction(V17.3, Z82.49) Status:Active Family history of cardiac di sorder(V17.49, Z82.49) Status:Active Family history of thyroid di sease(V18.19, Z83.49) Status:Active Unknown Family Member Name Dates Details Family history of diabetes m ellitus: Mother, Father, Grandparent(V18.0, Z83.3) Status:Active Family history of hypertensi on: Mother, Father(V17.49, Z82.49) Status:Active Family history of asthma: Mo ther(V17.5, Z82.5) Status:Active Family history of myocardial infarction: Father(V17.3, Z82.49) Status:Active Family history of cardiac di sorder: Father(V17.49, Z82.49) Status:Active Family history of thyroid di sease: Father(V18.19, Z83.49) Status:Active FHx: mental illness: Mother, Sibling(V17.0, Z81.8) Status:Active TBI (traumatic brain injury) : Daughter Status:Active Unknown Family Member Name Dates Details Family history of diabetes m ellitus: Mother, Father, Grandparent(V18.0, Z83.3) Status:Active Family history of hypertensi on: Mother, Father(V17.49, Z82.49) Status:Active Family history of asthma: Mo ther(V17.5, Z82.5) Status:Active Family history of myocardial infarction: Father(V17.3, Z82.49) Status:Active Family history of cardiac di sorder: Father(V17.49, Z82.49) Status:Active Family history of thyroid di sease: Father(V18.19, Z83.49) Status:Active FHx: mental illness: Mother, Sibling(V17.0, Z81.8) Status:Active TBI (traumatic brain injury) : Daughter Status:Active Unknown Family Member Name Dates Details Family history of diabetes m ellitus: Mother, Father, Grandparent(V18.0, Z83.3) Status:Active Family history of hypertensi on: Mother, Father(V17.49, Z82.49) Status:Active Family history of asthma: Mo ther(V17.5, Z82.5) Status:Active Family history of myocardial infarction: Father(V17.3, Z82.49) Status:Active Family history of cardiac di sorder: Father(V17.49, Z82.49) Status:Active Family history of thyroid di sease: Father(V18.19, Z83.49) Status:Active FHx: mental illness: Mother, Sibling(V17.0, Z81.8) Status:Active TBI (traumatic brain injury) : Daughter Status:Active Unknown Family Member Name Dates Details Family history of diabetes m ellitus: Mother, Father, Grandparent(V18.0, Z83.3) Status:Active Family history of hypertensi on: Mother, Father(V17.49, Z82.49) Status:Active Family history of asthma: Mo ther(V17.5, Z82.5) Status:Active Family history of myocardial infarction: Father(V17.3, Z82.49) Status:Active Family history of cardiac di sorder: Father(V17.49, Z82.49) Status:Active Family history of thyroid di sease: Father(V18.19, Z83.49) Status:Active FHx: mental illness: Mother, Sibling(V17.0, Z81.8) Status:Active TBI (traumatic brain injury) : Daughter Status:Active Unknown Family Member Name Dates Details Family history of diabetes m ellitus: Mother, Father, Grandparent(V18.0, Z83.3) Status:Active Family history of hypertensi on: Mother, Father(V17.49, Z82.49) Status:Active Family history of asthma: Mo ther(V17.5, Z82.5) Status:Active Family history of myocardial infarction: Father(V17.3, Z82.49) Status:Active Family history of cardiac di sorder: Father(V17.49, Z82.49) Status:Active Family history of thyroid di sease: Father(V18.19, Z83.49) Status:Active FHx: mental illness: Mother, Sibling(V17.0, Z81.8) Status:Active TBI (traumatic brain injury) : Daughter Status:Active Unknown Family Member Name Dates Details Family history of diabetes m ellitus: Mother, Father, Grandparent(V18.0, Z83.3) Status:Active Family history of hypertensi on: Mother, Father(V17.49, Z82.49) Status:Active Family history of asthma: Mo ther(V17.5, Z82.5) Status:Active Family history of myocardial infarction: Father(V17.3, Z82.49) Status:Active Family history of cardiac di sorder: Father(V17.49, Z82.49) Status:Active Family history of thyroid di sease: Father(V18.19, Z83.49) Status:Active FHx: mental illness: Mother, Sibling(V17.0, Z81.8) Status:Active TBI (traumatic brain injury) : Daughter Status:Active Unknown Family Member Name Dates Details Family history of diabetes m ellitus: Mother, Father, Grandparent(V18.0, Z83.3) Status:Active Family history of hypertensi on: Mother, Father(V17.49, Z82.49) Status:Active Family history of asthma: Mo ther(V17.5, Z82.5) Status:Active Family history of myocardial infarction: Father(V17.3, Z82.49) Status:Active Family history of cardiac di sorder: Father(V17.49, Z82.49) Status:Active Family history of thyroid di sease: Father(V18.19, Z83.49) Status:Active FHx: mental illness: Mother, Sibling(V17.0, Z81.8) Status:Active TBI (traumatic brain injury) : Daughter Status:Active Unknown Family Member Name Dates Details Family history of diabetes m ellitus: Mother, Father, Grandparent(V18.0, Z83.3) Status:Active Family history of hypertensi on: Mother, Father(V17.49, Z82.49) Status:Active Family history of asthma: Mo ther(V17.5, Z82.5) Status:Active Family history of myocardial infarction: Father(V17.3, Z82.49) Status:Active Family history of cardiac di sorder: Father(V17.49, Z82.49) Status:Active Family history of thyroid di sease: Father(V18.19, Z83.49) Status:Active FHx: mental illness: Mother, Sibling(V17.0, Z81.8) Status:Active TBI (traumatic brain injury) : Daughter Status:Active Unknown Family Member Name Dates Details Family history of diabetes m ellitus: Mother, Father, Grandparent(V18.0, Z83.3) Status:Active Family history of hypertensi on: Mother, Father(V17.49, Z82.49) Status:Active Family history of asthma: Mo ther(V17.5, Z82.5) Status:Active Family history of myocardial infarction: Father(V17.3, Z82.49) Status:Active Family history of cardiac di sorder: Father(V17.49, Z82.49) Status:Active Family history of thyroid di sease: Father(V18.19, Z83.49) Status:Active FHx: mental illness: Mother, Sibling(V17.0, Z81.8) Status:Active TBI (traumatic brain injury) : Daughter Status:Active Unknown Family Member Name Dates Details Family history of diabetes m ellitus: Mother, Father, Grandparent(V18.0, Z83.3) Status:Active Family history of hypertensi on: Mother, Father(V17.49, Z82.49) Status:Active Family history of asthma: Mo ther(V17.5, Z82.5) Status:Active Family history of myocardial infarction: Father(V17.3, Z82.49) Status:Active Family history of cardiac di sorder: Father(V17.49, Z82.49) Status:Active Family history of thyroid di sease: Father(V18.19, Z83.49) Status:Active FHx: mental illness: Mother, Sibling(V17.0, Z81.8) Status:Active TBI (traumatic brain injury) : Daughter Status:Active Unknown Family Member Name Dates Details Family history of diabetes m ellitus: Mother, Father, Grandparent(V18.0, Z83.3) Status:Active Family history of hypertensi on: Mother, Father(V17.49, Z82.49) Status:Active Family history of asthma: Mo ther(V17.5, Z82.5) Status:Active Family history of myocardial infarction: Father(V17.3, Z82.49) Status:Active Family history of cardiac di sorder: Father(V17.49, Z82.49) Status:Active Family history of thyroid di sease: Father(V18.19, Z83.49) Status:Active FHx: mental illness: Mother, Sibling(V17.0, Z81.8) Status:Active TBI (traumatic brain injury) : Daughter Status:Active Unknown Family Member Name Dates Details Family history of diabetes m ellitus: Mother, Father, Grandparent(V18.0, Z83.3) Status:Active Family history of hypertensi on: Mother, Father(V17.49, Z82.49) Status:Active Family history of asthma: Mo ther(V17.5, Z82.5) Status:Active Family history of myocardial infarction: Father(V17.3, Z82.49) Status:Active Family history of cardiac di sorder: Father(V17.49, Z82.49) Status:Active Family history of thyroid di sease: Father(V18.19, Z83.49) Status:Active FHx: mental illness: Mother, Sibling(V17.0, Z81.8) Status:Active TBI (traumatic brain injury) : Daughter Status:Active Unknown Family Member Name Dates Details Family history of diabetes m ellitus: Mother, Father, Grandparent(V18.0, Z83.3) Status:Active Family history of hypertensi on: Mother, Father(V17.49, Z82.49) Status:Active Family history of asthma: Mo ther(V17.5, Z82.5) Status:Active Family history of myocardial infarction: Father(V17.3, Z82.49) Status:Active Family history of cardiac di sorder: Father(V17.49, Z82.49) Status:Active Family history of thyroid di sease: Father(V18.19, Z83.49) Status:Active FHx: mental illness: Mother, Sibling(V17.0, Z81.8) Status:Active TBI (traumatic brain injury) : Daughter Status:Active Unknown Family Member Name Dates Details Family history of diabetes m ellitus: Mother, Father, Grandparent(V18.0, Z83.3) Status:Active Family history of hypertensi on: Mother, Father(V17.49, Z82.49) Status:Active Family history of asthma: Mo ther(V17.5, Z82.5) Status:Active Family history of myocardial infarction: Father(V17.3, Z82.49) Status:Active Family history of cardiac di sorder: Father(V17.49, Z82.49) Status:Active Family history of thyroid di sease: Father(V18.19, Z83.49) Status:Active FHx: mental illness: Mother, Sibling(V17.0, Z81.8) Status:Active TBI (traumatic brain injury) : Daughter Status:Active Relationship Condition Age at Onset Recorded Date/T vasquez Not Specified Cardiac disease Unknown Hyperlipidemia Unknown Advance Directives No Advanced Directives Records FoundDocuments on File Type Date Recorded 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 Advance Directives and Livin g Will 02/10/2019 5:53 PM Documents on File Type Date Recorded 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 anation Advance Directives and Livin g Will 03/21/2019 11:25 PM Documents on File Type Date Recorded 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 * Abdominal Pain, Adult (Afghan) * Diabetes with High Blood Sugar (Afghan) documented in this encounter* Instructions* Camilo June PA-C - 02/10/2019 CONTACT YOUR PSYCHIATRIST'S OFFICE IN [place] TOMORROW MORNING TO INFORM THE STAFF OF YOUR EVALUATION IN THE EMERGENCY DEPARTMENT AND NEED FOR AN APPOINTMENT. * Attachments The following attachments cannot be sent through Care Everywhere. * Mood Disorders: General Info (Afghan) documented in this encounter* Instructions* Claude Peralta MD - 03/21/2019 If symptoms do not improve consult with your doctor Return to ER as needed documented in this encounter* Attachments The following attachments cannot be sent through Care Everywhere. * URI (Upper Respiratory Infection) (Afghan) * Hyperglycemia: General Info (Afghan) documented in this encounter* Attachments The following attachments cannot be sent through Care Everywhere. * Anxiety Disorder (Afghan) documented in this encounter* Instructions* Hailey Paiz, [employer] - 10/05/2018 Follow-up with your PCP in the next 1 to 2 days for further evaluation of your diabetes. * Attachments The following attachments cannot be sent through Care Everywhere. * Diabetes: Sick Care (Afghan) * Glycemic Index: General Info (Afghan) * Diabetes: Type 2: General Info (Afghan) * Diabetes: Heart Disease: General Info (Afghan) * Hyperglycemia: General Info (Afghan) documented in this encounter Assessments Diagnosis Lower abdominal pain- Primary Abdominal pain, other specified site Nausea Nausea alone Hyperglycemia Other abnormal glucose Diagnosis Mild episode of recurrent major depressive disorder (HCC)- Primary Diagnosis Abdominal cramps- Primary Abdominal pain, unspecified site Nausea Nausea alone Diagnosis MG (obstructive sleep apnea) Obstructive sleep apnea (adult) (pediatric) Diagnosis Seizure (HCC) Other convulsions Diagnosis Viral upper respiratory infection- Primary Acute upper respiratory infections of unspecified site Diagnosis Seizure (HCC) Other convulsions Diagnosis Anxiety- Primary Anxiety state, unspecified Diagnosis Hyperglycemia- Primary Other abnormal glucose Diabetes mellitus due to underlying condition with hyperosmolarity 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, without long-term current use of insulin (HCC) Reason for Referral Status Reason Specialty Diagnoses / Procedures Referred By Contact Referred To Contact Closed Sleep Medicine Diagnoses MG (obstructive sleep apnea) MG Procedures PSG SEIZURE MONTAGE Maty Chavez MD [address] [place] [address] Sleep Medicine [address] [place] [address] Status Reason Specialty Diagnoses / Procedures Referred By Contact Referred To Contact Pending Review Specialty Services Required/Patien t's Best Interest Neurology Diagnoses Seizure (HCC) Procedures EEG (Standard) Srini Medina MD [address] [address] Eeg Neuro[facility] [address] [place] [address] Status Reason Specialty Diagnoses / Procedures Referred By Contact Referred To Contact Authorized Sleep Medicine Diagnoses Seizure (HCC) Srini Medina MD [address] [facility] [address] [place] [address] Maty Chavez MD [address] [place] [address] Specialty Diagnoses / Procedures Referred By Contac t Referred To Contact Diagnoses Insulin controlled gestational diabetes mellitus (GDM) in first trimester Procedures ENDOCRINOLOGY DIETITIAN VISIT (MNT) MEDICAL NUTRITION ASSMT&IVNTJ INDIV EACH 15 [place] MEDICAL NUTRITION ASSMT&IVNTJ INDIV EACH 15 NV MEDICAL NUTRITION ASSMT&IVNTJ INDIV EACH 15 [place] MEDICAL NUTRITION ASSMT&IVNTJ INDIV EACH 15 [place] Kelsy Guillermo, DO [address] [place] [address] Referral ID Status Reason Start Date Expiration Date Visits Requested Visits Authorized [id number] Authorized PCP Requested Referral 4 05/03/2025 1 1 Specialty Diagnoses / Procedures Referred By Contac t Referred To Contact Diagnoses Encounter for supervision of high risk in first trimester, antepartum H/O macrosomia in infant in prior , currently Pre-existing type 2 diabetes mellitus in in first trimester History of pre-eclampsia Procedures CONSULT TO MATERNAL MEDI OFFICE/OUTPATIENT NEW HIGH MDM 60 MINUTES Zayda Parker APRN.CNP [address] [place] [address] Referral ID Status Reason Start Date Expiration Date Visits Requested Visits Authorized [id number] Authorized PCP Requested Referral Auto-Generate d Referral 4 05/07/2025 1 1 Specialty Diagnoses / Procedures Referred By Contac t Referred To Contact [facility] Diagnoses with uncertain dates in first trimester Procedures NUCHAL TRANSLUCENCY WHI US NUCHAL TRANSLUCENCY 1ST GESTATION Zayda Parker APRN.CNP [address] [place] [address] [facility] [address] [place] [address] Referral ID Status Reason Start Date Expiration Date Visits Requested Visits Authorized [id number] Authorized Auto-Generat ed Referral 4 05/07/2025 1 1 Specialty Diagnoses / Procedures Referred By Contac t Referred To Contact [facility] Diagnoses with uncertain dates in first trimester Procedures OBSTETRIC ULTRASOUND WHI US PREG UTERUS AFTER 1ST TRIMEST GESTATION Zayda Parker, HOSPITAL STAFF PHARMACIST.[employer] [address] [place] [address] [facility] [address] [place] [address] Referral ID Status Reason Start Date Expiration Date Visits Requested Visits Authorized [id number] New Request Auto-Generat ed Referral 4 05/07/2025 1 1 Instructions * Patient Instructions* Srini Medina MD - 12/08/2019 8:35 AM EDT We will send you for sleep study. We will await blood results of your EEG. We will get some blood test. I will see her for follow-up visit in 2 months. documented in this encounter History of Present Illness * Srini Medina MD - 12/08/2019 8:00 AM EDT Subjective Patient ID: Melissa Kaur is a 24 y.o. female. Seizures This is a new problem. Episode onset: 2 months ago. The problem has not changed since onset.There were 6 to 10 seizures. The most recent episode lasted 2 to 5 minutes. Characteristics include rhythmic jerking and loss of consciousness. Characteristics do not include bowel incontinence, bladder incontinence or bit tongue. The episode was not witnessed. There was the sensation of an aura present. The seizures did not continue in the ED. The seizure(s) had no focality. There has been no fever. Patient is a 24-year-old lady who came for neurological evaluation. She is referred because of seizure. Her symptoms started around 2 months ago described as nocturnal events. She will wakeup and felt to have awake and developed palpitations and went into convulsions with unresponsiveness. Afterward she will remain seated for several minutes in duration before falling back to sleep. There is no incontinence or tongue biting. No clear trigger factors or precipitating factors. No daytime events. These spells would occur about once a week. She does not drive. Patient describes irregular twitching movement of the eyes, and lips. She and her daughter was diagnosed to have paroxysmal nonkinesigenic dyskinesias (PNKD). She denies any clear precipitating factors. She mentions slipping on black ice and hitting her occipital area on concrete bouncing twice without any loss of consciousness. MRI was reportedly normal. Hemoglobin A1c 6.2. Past medical history include diabetes, PTSD, anxiety and depression, and seizures. Family history is negative for seizure. No tobacco, alcohol, or recreational drug use. She lives alone and does not drive. The following portions of the patient's history were reviewed and updated as appropriate: allergies, current medications, past family history, past medical history, past social history, past surgicalhistory and problem list. Review of Systems Gastrointestinal: Negative for bowel incontinence. Genitourinary: Negative for bladder incontinence. Neurological: Positive for seizures and loss of consciousness. All systems reviewed and negative except pertinent positives and negatives documented in the HPI and below. Objective Neurologic Exam Mental Status Oriented to person, place, and time. Attention: normal. Speech: speech is normal Level of consciousness: alert Knowledge: good. Normal comprehension. Cranial Nerves CN II Visual pompa full to confrontation. CN III, IV, Pupils are equal, round, and reactive to light. Extraocular motions are normal. CN V Facial sensation intact. Right facial sensation deficit: none Left facial sensation deficit: none CN VII Facial expression full, symmetric. Right facial weakness: none Left facial weakness: none CN VIII CN VIII normal. Hearing: intact CN IX, X CN IX normal. CN X normal. Palate: symmetric CN XI CN XI normal. CN XII CN XII normal. Tongue deviation: none Motor Exam Muscle bulk: normal Overall muscle tone: normal Right arm pronator drift: absent Left arm pronator drift: absent Strength Strength 5/5 throughout. Right neck flexion: 5/5 Left neck flexion: 5/5 Right neck extension: 5/5 Left neck extension: 5/5 Right deltoid: 5/5 Left deltoid: 5/5 Right biceps: 5/5 Left biceps: 5/5 Right triceps: 5/5 Left triceps: 5/5 Right wrist flexion: 5/5 Left wrist flexion: 5/5 Right wrist extension: 5/5 Left wrist extension: 5/5 Right interossei: 5/5 Left interossei: 5/5 Right iliopsoas: 5/5 Left iliopsoas: 5/5 Right quadriceps: 5/5 Left quadriceps: 5/5 Right hamstrin/5 Left hamstrin/5 Right glutei: 5/5 Left glutei: 5/5 Right anterior tibial: 5/5 Left anterior tibial: 5/5 Right posterior tibial: 5/5 Left posterior tibial: 5/5 Right peroneal: 5/5 Left peroneal: 5/5 Right gastroc: 5/5 Left gastroc: 5/5 Sensory Exam Light touch normal. Vibration normal. Proprioception normal. Pinprick normal. Gait, Coordination, and Reflexes Gait Gait: normal Coordination Finger to nose coordination: normal Tandem walking coordination: normal Tremor Resting tremor: absent Intention tremor: absent Action tremor: absent Reflexes Right brachioradialis: 2+ Left brachioradialis: 2+ Right biceps: 2+ Left biceps: 2+ Right triceps: 2+ Left triceps: 2+ Right patellar: 2+ Left patellar: 2+ Right achilles: 2+ Left achilles: 2+ Right plantar: normal Left plantar: normal Right ankle clonus: absent Left ankle clonus: absent Physical Exam Vitals signs and nursing note reviewed. Constitutional: Appearance: She is well-developed. HENT: Head: Normocephalic and atraumatic. Eyes: General: Lids are normal. Extraocular Movements: EOM normal. Conjunctiva/sclera: Conjunctivae normal. Pupils: Pupils are equal, round, and reactive to light. Neck: Musculoskeletal: Normal range of motion and neck supple. Vascular: No carotid bruit. Trachea: Phonation normal. Cardiovascular: Rate and Rhythm: Normal rate and regular rhythm. Pulses: Normal pulses. Pulmonary: Effort: Pulmonary effort is normal. Breath sounds: Normal breath sounds. Abdominal: General: Bowel sounds are normal. Palpations: Abdomen is soft. Musculoskeletal: Normal range of motion. Skin: General: Skin is warm and dry. Neurological: Mental Status: She is alert and oriented to person, place, and time. She is not disoriented. Cranial Nerves: No cranial nerve deficit. Sensory: No sensory deficit. Motor: No tremor, atrophy or abnormal muscle tone. Coordination: Coordination normal. Fxmzic-Elly-Resgql Test normal. Gait: Gait is intact. Gait and tandem walk normal. Deep Tendon Reflexes: Strength normal and reflexes are normal and symmetric. Reflex Scores: Tricep reflexes are 2+ on the right side and 2+ on the left side. Bicep reflexes are 2+ on the right side and 2+ on the left side. Brachioradialis reflexes are 2+ on the right side and 2+ on the left side. Patellar reflexes are 2+ on the right side and 2+ on the left side. Achilles reflexes are 2+ on the right side and 2+ on the left side. Psychiatric: Speech: Speech normal. Behavior: Behavior normal. Assessment/Plan: Patient with at least 2 months of compulsion that occurs only at night. She also has history of paroxysmal nonkinesigenic dyskinesia. Consider whether she has nocturnal seizures, anxiety and panic attacks, hypoglycemia, parasomnia, or nonepileptic seizures. Her brain MRI was reportedly normal. Impression: 1. Nocturnal convulsion 2. PNKD 3. Anxiety depression 4. PTSD 5. Diabetes Suggestion: She is ready scheduled to have an EEG. We will try to follow-up the result. We will review MRI that was done. We will schedule her for polysomnography looking for apnea or sleep parasomnias. We will check some laboratory testing include NICOLE, RPR, ceruloplasmin, and sed rate. No driving or operating motor vehicle. Avoid caffeine, alcohol, sleep deprivation, or stress. Maintain regular sleep and dietary habits. Monitor for any excessive daytime sleepiness. Monitor for any trigger factors or precipitating factors. I instructed her to write a diary of her spells. I will hold anticonvulsant agent at this time. Impression/diagnosis, plans were explained and discussed. [place] seizure precautions. Avoid triggers and precipitating factors. Medications benefits, risk, complications, alternatives were explained. Teratogenic potentials of medications explained. Monitor for dizziness, drowsiness, behavioral changes, anxiety/depression, or suicidal ideations. No swimming alone, climbing ladders/roof or operating heavy machinery that can potentially injured the patient when breakthrough seizure occurs. No driving/operating motor vehicles 6 months form last spells. Maintain regular sleep and dietary habits. Avoid alcohol or sedative medications. Daily vitamin D with calcium supplements. Patient was made aware of sudden unexpected in epilepsy. (SUDEP). Maintain medication compliance. Patient also made aware of anticonvulsant agent causing increased risk of suicide and suicidal ideation. Patient instructed to review list of medication side effects especially black box warning for the medication prescribed. Monitor for recurrent seizures/spells. Questions and concerns were addressed. Please call or contact us for any problems or concerns. I will see her for follow-up visit in 2 months. Muna villalapndo: Portions of this chart was created using [employer] voice recognition software. Occasional wrong-word or sound-like substitutions may have occurred due to inherent limitations of the voice recognition software. Please read the chart carefully and recognize, using context, where the substitutions have occurred. Problem List Items Addressed This Visit None Visit Diagnoses Seizure (HCC) Relevant Orders Ambulatory referral to Sleep Medicine documented in this encounter Chief Complaint * 25 y/o female presents for hospital f/u * Pt reports she is back on her fluoxetine * Pt is feeling a little bit better * While patient was hospitalized she was given glipizide and insulin injections when her sugars were over 200 * Pt was not given a prescription for wither at the hospitals * Pt reports her sugars were in the 340's * Pt reports she gave her glucose meter to her father * Pt stopped her medication for a long time * She then developed strange skin lesions on her LT lower leg patient reports the are sometimes itchy * 25 y/o female presents for 2 month f/u * Denies needing medication RF's * Pt reports she has been staying with her Mom due too her severe depression * She states she goes to family so she does not hurt herself * She states her landlord has been bothering her about signed her new lease agreement which has been stressing her out * Pt reports she had to get the lesion on her RT upper eyelid drained * She was told it was a stye that turned into a skin infection * Tx with Bactrim and Tobrex ointment Patient here today for yearly. Her last pap was 3-4 years ago in [place] that the patient states was normal. She has no concerns. She does not do a self breast exam. LMP:2Patient is here for Test of Cure. Patient was positive for Chlamydia and Trich last month, patient stated she completed both antibiotics. LMP: 12/15/21.PT HERE TODAY FOR A FOLLOW UP. PT HERE FOR WET MOUNT TO CHECK FOR TRICH. PT IS DENIES HAVING ANY SYMPTOMS. PT ASKED IF SHE WAS GETTING MORE BLOOD WORK DONE FOR HSV. LMP month. Chief Complaint and Reason for Visit Chief Complaint Admit Date ABD PAIN September 24, 2024 1:4 8pm Chief Complaint Admit Date ABD PAIN September 24, 2024 1:4 8pm RULE OUT LABOR October 16, 2024 5:10p m Reason for Visit Admit Date 27 weeks gestation of September 242024 1:48pm Uterine irritability September 24, 2024 1: 48pm 31 weeks gestation of October 5:10pm Asthma October 16, 2024 5:10p m Bipolar 1 disorder October 16, 2024 5:10p m History of herpes genitalis October 16 5:10pm Obesity affecting October 16 5:10pm Type 2 diabetes mellitus affecting pregn ciaran, antepartum October 16, 2024 5:10pm Chief Complaint Admit Date ABD PAIN September 24, 2024 1:4 8pm RULE OUT LABOR October 16, 2024 5:10p m R/O LABOR November 15, 2024 3:32p m Additional Source Comments INFORMATION SOURCE (unrecogn ized section and content) DATE CREATED AUTHOR 12/02/2017 [facility] DATE CREATED AUTHOR AUTHOR'S ORGANIZ ATION 12/17/2017 [facility] DATE CREATED AUTHOR AUTHOR'S ORGANIZ ATION 01/24/2018 [facility] DATE CREATED AUTHOR AUTHOR'S ORGANIZ ATION 05/18/2018 [facility] DATE CREATED AUTHOR AUTHOR'S ORGANIZ ATION 07/29/2018 [facility] DATE CREATED AUTHOR AUTHOR'S ORGANIZ ATION 01/02/2019 [facility] DATE CREATED AUTHOR AUTHOR'S ORGANIZ ATION 03/11/2019 [facility] DATE CREATED AUTHOR AUTHOR'S ORGANIZ ATION 03/18/2020 [facility] DATE CREATED AUTHOR AUTHOR'S ORGANIZ ATION 07/05/2020 [facility] DATE CREATED AUTHOR AUTHOR'S ORGANIZ ATION 07/20/2020 [facility] DATE CREATED AUTHOR AUTHOR'S ORGANIZ ATION 08/05/2021 [facility] DATE CREATED AUTHOR AUTHOR'S ORGANIZ ATION 10/28/2021 [facility] DATE CREATED AUTHOR AUTHOR'S ORGANIZ ATION 05/31/2022 [facility] DATE CREATED AUTHOR AUTHOR'S ORGANIZ ATION 08/18/2022 [facility] DATE CREATED AUTHOR AUTHOR'S ORGANIZ ATION 11/28/2022 [facility] DATE CREATED AUTHOR AUTHOR'S ORGANIZ ATION 12/04/2022 [facility] DATE CREATED AUTHOR AUTHOR'S ORGANIZ ATION 04/19/2024 [facility] DATE CREATED AUTHOR AUTHOR'S ORGANIZ ATION 04/26/2024 [facility] DATE CREATED AUTHOR AUTHOR'S ORGANIZ ATION 09/07/2024 [facility] DATE CREATED AUTHOR AUTHOR'S ORGANIZ ATION 09/08/2024 [facility] DATE CREATED AUTHOR AUTHOR'S ORGANIZ ATION 10/15/2024 [facility] DATE CREATED AUTHOR AUTHOR'S ORGANIZ ATION 11/07/2024 [facility] DATE CREATED AUTHOR AUTHOR'S ORGANIZ ATION 12/06/2024 [facility] DATE CREATED AUTHOR AUTHOR'S ORGANIZ ATION 12/07/2024 [facility] Reason for Visit (unrecogniz ed section and content) Reason Comments Abdominal Pain lower abs pain x 7 d ays, nausea no vomitting. Reason Comments Suicidal Reason Comments Nausea Abdominal Pain lower abdomen Status Reason Specialty Diagnoses / Procedures Referred By Contact Referred To Contact Closed Sleep Medicine Diagnoses MG (obstructive sleep apnea) MG Procedures PSG SEIZURE Maty Frost MD [address] [place] [address] Sleep Medicine [address] [place] [address] Status Reason Specialty Diagnoses / Procedures Referred By Contact Referred To Contact Pending Review Specialty Services Required/Patien t's Best Interest Neurology Diagnoses Seizure (HCC) Procedures EEG (Standard) Srini Medina MD [address] [place] [address] [facility] [address] [place] [address] Reason Comments Shortness of Breath has been feeling SOB all day Hyperglycemia pt report s high BS, states it was 201 at home Reason Comments Seizures States that her seiz ures just started this year. Last seizure was around a week ago. States that her seizures usually happen while she is sleeping. Status Reason Specialty Diagnoses / Procedures Referred By Contact Referred To Contact Closed Specialty Services Required/Patient' s Best Interest Neurology Diagnoses Seizure (HCC) Rich Ng, DO [address] [place] [address] Srini Medina MD [address] [place] [address] Reason Comments Mental Health Problem Reason Comments Shortness of Breath Nausea Palpitations Reason Comments Vaginitis Itching, some burnin g, white discharge sometimes yellow, denies urine frequency or urgency, would like to do a STI screening also Reason Comments 3 month Specialty Diagnoses / Procedures Referred By Shell t Referred To Contact Primary Care Procedures Follow Up In Primary Care Jamari Byrne MD [address] [facility], [facility] [place] [facility] [address] [place] [address] Referral ID Status Reason Start Date Expiration Date V isits Requested Visits Authorized [id number] Authorized 09/09/2022 03/08/2023 1 1 Reason Comments Diabetes 1 mo*Blood sugar is running high in the evening prior to taking her insulin Reason Comments Diabetes 1 mo Reason Comments Ear Pain Left ear pain on and off x 3 months Reason Comments Diabetes 2 mo03/11/23 A1C 11.6 , labs were not done Necrobiosis lipoidica 2 mo Reason Comments Care Coordination Reason Comments Vaginal Discharge Pt reports vaginal d ischarge for around 10 days. Pt reports it is white in color. Reports chance of . Itching. Pain with urinating. Reason Comments Patient Update ER visit Reason Comments Hospital FUV PT is here today an ER FUV. She was seen on 04/18/24 where she learned she was and had a UTI along with being dx with HSV. Reports that has pretty much cleared up. Finished the medication for this. Reports she has been experiencing itching in private area. Did report she also finished medication for UTI. Reason Comments Blood Sugar Elevation Reason Comments Social Work Services Reason Comments Type 2 in Specialty Diagnoses / Procedures Referred By Shell lucia Referred To Contact Endocrinology Diagnoses Insulin controlled gestational diabetes mellitus (GDM) in first trimester Procedures CONSULT TO ENDOCRINOLOGY OFFICE/OUTPATIENT [facility] 60 MINUTES William Gramajo MD [address] [place] [address] Referral ID Status Reason Start Date Expiration Date V isits Requested Visits Authorized [id number] Closed PCP Requested Referral 04/20/2024 04/20/2025 1 1 Reason Comments 3 month follow up DM, bipolar depressi on, Necosiosis lipodica Reason Comments depression in Reason Comments Initial OB Visit Reason Comments Blood Sugar Reading Reason Comments Results Reason Comments Follow-up Patient states she i s here for her routine diabetic check-up. Patient denies any issues at this time. Desires to discuss possible dermatology referral. Reason Comments Abdominal Pain C/o bilateral lower abd pain/ pelvic pain that radiates to flank sides that started yesterday. She is having morning sickness nausea, denies fever. She feels she is not peeing as much as she should. Denies constipation or diarrhea. Pt is 9 weeks Reason Comments Diabetes 1 mo; started on the humalog quik pen until 01/08 Reason Onset Date Comments Care 05/26/2024 Reason Comments Follow Up Reason Comments US Specialty Diagnoses / Procedures Referred By Shell lucia Referred To Contact [facility] Diagnoses with uncertain dates in first trimester Procedures NUCHAL TRANSLUCENCY WHI US NUCHAL TRANSLUCENCY 1ST GESTATION Zayda Parker APRN.[employer] [address] [place] [address] [facility] [address] [place] [address] Referral ID Status Reason Start Date Expiration Date V isits Requested Visits Authorized [id number] Closed Auto-Generat ed Referral Patient Cleared - Admin/Chairm an/Director advise to proceed or did not respond 06/15/2024 06/08/2025 1 1 Reason Comments Nuchal/Consult to MFM Specialty Diagnoses / Procedures Referred By Contac t Referred To Contact MATERNAL MEDICINE Diagnoses Encounter for supervision of high risk in first trimester, antepartum H/O macrosomia in infant in prior , currently Pre-existing type 2 diabetes mellitus in in first trimester History of pre-eclampsia Procedures CONSULT TO MATERNAL MEDI OFFICE/OUTPATIENT NEW HIGH MDM 60 MINUTES OFFICE/OUTPATIENT ESTABLISHED HIGH MDM 40 MIN Zayda Parker APRN.REYES [address] [place] [address] [employer] [address] [place] [address] Referral ID Status Reason Start Date Expiration Date Visits Requested Visits Authorized [id number] Authorized PCP Requested Referral Auto-Generate d Referral 06/09/2024 06/08/2025 99 99 Reason Comments Medical Nutrition Therapy Reason Comments OB Cramping Reason Comments Cough C/o cough and vomiti ng since yesterday. Also c/o fever. States she is approx 15 wks preg. Reason Comments OB Influenza Specialty Diagnoses / Procedures Referred By Anthonyac t Referred To Contact [facility] Diagnoses with uncertain dates in first trimester Encounter for supervision of normal , unspecified, unspecified trimester Procedures OBSTETRIC ULTRASOUND WHI US PREG UTERUS AFTER 1ST TRIMEST GESTATION Zayda Parker, SARAHY.[employer] [address] [place] [address] [facility] [address] [place] [address] Referral ID Status Reason Start Date Expiration Date Visits Requested Visits Authorized [id number] Authorized Auto-Generat ed Referral 06/29/2024 06/08/2025 20 20 Reason Onset Date Comments Care 07/13/2024 Reason Comments Refill Request Reason Comments Vaginal Problem Reason Comments Follow Up Gestational Diabetes Specialty Diagnoses / Procedures Referred By Shell t Referred To Contact [facility] Diagnoses Encounter for anatomic survey Procedures OBSTETRIC ULTRASOUND WHI US PREG UTERUS AFTER 1ST TRIMEST GESTATION William Gramajo MD [address] [place] [address] Phone: tel: fax: [facility] [address] [place] [address] Referral ID Status Reason Start Date Expiration Date V isits Requested Visits Authorized [id number] Closed Auto-Generate d Referral 07/13/2024 07/13/2025 1 1 Reason Onset Date Comments Care 08/10/2024 Reason Comments returning your call Reason Comments Patient Request Reason Comments Patient Question Specialty Diagnoses / Procedures Referred By Shell lucia Referred To Contact [facility] Diagnoses Obesity affecting in first trimester, unspecified obesity type (HCC) Pre-existing type 2 diabetes mellitus in in first trimester ([facility]) Procedures OBSTETRIC ULTRASOUND WHI US PREG UTERUS AFTER 1ST TRIMEST GESTATION William Gramajo MD [address] [place] [address] Phone: tel: fax: [facility] [address] [place] [address] Referral ID Status Reason Start Date Expiration Date V isits Requested Visits Authorized [id number] Closed Auto-Generate d Referral 08/10/2024 08/10/2025 4 1 Reason Comments Diabetes Lab Results Componen t Value Date HGBA1C 7.9 (A) 06/07/2024 Reason Comments Med Change Request Reason Onset Date Comments Care 09/07/2024 Reason Onset Date Comments Refill Request 09/23/2024 Reason Onset Date Comments Care 09/24/2024 Reason Onset Date Comments Care 10/04/2024 Reason Onset Date Comments Care 10/18/2024 Reason Onset Date Comments Care 10/25/2024 Specialty Diagnoses / Procedures Referred By Shell t Referred To [facility] Diagnoses History of pre-eclampsia 29 weeks gestation of (HCC) Pre-existing type 2 diabetes mellitus in in third trimester ([facility]) Supervision of high risk in third trimester ([facility]) Procedures ECG COMPLETE ECG ROUTINE ECG W/LEAST 12 LDS W/I&R Piper Julian MD [address] [place] [address] Phone: tel: fax: [facility] [address] [place] [phone] Referral ID Status Reason Start Date Expiration Date V isits Requested Visits Authorized [id number] Closed Auto-Generate d Referral 10/04/2024 10/04/2025 1 1 Reason Onset Date Comments Care 11/02/2024 Reason Comments Breast Pump Reason Onset Date Comments Care 11/05/2024 Specialty Diagnoses / Procedures Referred By Contac t Referred To Contact [facility] Diagnoses Supervision of high risk in third trimester (HCC) Pre-existing type 2 diabetes mellitus in in first trimester (HCC) Procedures BIOPHYSICAL PROFILE US [facility] BIOPHYSICAL PROFILE NON-STRESS TESTING Piper Julian MD [address] [place] [address] Phone: tel: fax: [address] [address] Referral ID Status Reason Start Date Expiration Date V isits Requested Visits Authorized [id number] Closed Auto-Generate d Referral 10/05/2024 10/05/2025 10 1 Reason Onset Date Comments Care 11/11/2024 Reason Onset Date Comments Care 11/15/2024 Reason Onset Date Comments Care 11/18/2024 Reason Onset Date Comments Care 11/25/2024 Reason Onset Date Comments Care 12/02/2024 Monique Cartwright LSW - 02/10/2019 7:23 PM Monique Monroe LSW - 03/11/2019 1:52 PM EDT Consult Notes (unrecognized section and content) ED [facility] Initial Assessment Date: 02/10/2019 Time: 7:24 PM Patient Name: Melissa Kaur Date of : 1995 Sex: Female Admit Date/Time: 02/10/2019 5:04 PM GENERAL INFORMATION 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 Information Provided By: Patient, Patient Support System: Current Living Arrangements: Lives with and 2 elderly friends Type of Residence: Private residence Name and Contact of Collateral Provider: Jorge () [phone] LEGAL STATUS Voluntary DIAGNOSIS/ACTIVE PROBLEM LIST Hospital Problem List Codes Depression ICD-10-CM: F32.9 ICD-9-CM: 311 Non-Hospital Problem List Codes Diabetes mellitus, type 2 (HCC) ICD-10-CM: E11.9 ICD-9-CM: 250.00 Severe episode of recurrent major depressive disorder, without psychotic features (HCC) ICD-10-CM: F33.2 ICD-9-CM: 296.33 Generalized anxiety disorder ICD-10-CM: F41.1 ICD-9-CM: 300.02 Grief ICD-10-CM: F43.21 ICD-9-CM: 309.0 Intellectual disability ICD-10-CM: F79 ICD-9-CM: 319 Hypertension ICD-10-CM: I10 ICD-9-CM: 401.9 Asthma ICD-10-CM: J45.909 ICD-9-CM: 493.90 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 ICD-9-CM: 755.50 Developmental Delay ICD-10-CM: R62.50 ICD-9-CM: 783.40 Problems in relationship with spouse or partner ICD-10-CM: Z63.0 ICD-9-CM: V61.8 Problem related to psychosocial circumstances ICD-10-CM: Z65.9 ICD-9-CM: V62.9 Non compliance w medication regimen ICD-10-CM: Z91.14 ICD-9-CM: V15.81 CHIEF COMPLAINT/HISTORY OF PRESENT ILLNESS Chief Complaint/History Present Illness Chief Complaint: Depression/Anxiety Current Symptoms: Depression Problems Related to: Social environment History of Present Illness: Patient (Pt) presents to the emergency department (ED) for depression and anxiety. Pt reports that she was having a difficult day today. Pt reports that her depression and anxiety felt worse today and she was unable to get in contact with her counselor so she decided to come to the hospital. Pt states that she was afraid that she was going to start having thoughts of wanting to hurt herself in the past but denies that she having those thoughts. Pt reports I could just feel myself starting to go that direction and it worried me so I came here. Pt denies suicidal/homicidal ideations. Pt reports that she has several coping skills that she is going to use tonight including taking a walk, talking to her , and reading. Pt reports that she is feeling stress because of family issues. Pt states that her family does not understand mental illness and make her feel unwanted. Pt reports that she plans on using her coping skills tonight and then plans on calling her counselor tomorrow morning to make an earlier appointment. Pt denies suicidal/homicidal ideations to this worker and reports that she will be safe to return home. Pt's also reports that the Pt will be safe to go home because he will be with her. states, She knows she can talk to me and if anything changes we will return to the hospital. Pt confirms that she will return to the hospital if she begins to feel worse. Pt denies wanting to admit self to the hospital. Pt was pleasant, cooperative, anxious, and directable. PAST PSYCHIATRIC HISTORY Past Psychiatric History Previous Psychiatric Diagnosis: Depression, Anxiety Previous Psychiatric Medications: Anti-depressants Previous Psychiatric Hospitalizations: [facility] December 2018 Current Psychiatric Medications: Prozac ALCOHOL/DRUG ABUSE HISTORY Alcohol/Drug Abuse History Current Alcohol Use (Frequency): Denies Current Drug Use: No MENTAL STATUS EVALUATION Mental Status Evaluation General Appearance: Equal to stated age, Disheveled Orientation: Oriented to person, place, and time Level of Consciousness: Alert, Quiet/awake Mood/Affect: Depressed, Anxious Behavior: Cooperative, Appropriate to situation, Ability to maintain focus Remote Memory: WDL Language and Speech Content: Appropriate Preoccupations: External stressors Impulse Control: Is reflective and able to resist urges Insight: Awareness Judgment: Good PATIENT STRENGTHS Patient Strengths Patient Strengths: Basic self-care skills, Family/friends, Housing, Mental health services, Motivation to change RISK ASSESSMENT Risk Factors Recent Psychological Experiences: None Current Suicidal Ideation: No Previous Suicidal Ideation: Yes Describe Previous Suicidal Ideation: Pt reports past suicidal ideations Current Suicide Attempt: No Previous Suicide Attempt: No Current Self Harm Behavior: No Previous Self Harm Behavior: No Current Plans to Harm Another: No Previous Plans to Harm Another: No History of Attempts to Harm Another: No Access to Weapons: No Violent Episode: No Previous Violent Episode: No Family History of Suicide: No Family History of Mental Illness: Yes Describe Family History of Mental Illness: Mother-depression and anxiety Family History of Substance Abuse: No Elopement: No risk Methods to Calm Down: Quiet time in room, Talk with staff Restraint Risk Factors: None PROTECTIVE FACTORS Protective Factors Family and Community Support (Connectedness): Yes Ongoing Medical and Mental Health Services (Community Support): Yes Skills In Problem Solving and Conflict Resolution (Coping Skills): Yes Cultural and Moravian Beliefs: Yes Access to Weapons: No TREATMENT RECOMMENDATIONS AND CLINICAL SUMMARY Treatment Recommendations and Clinical Summary Current Recommendations: Referral for outpatient counseling RATIONALE/PLAN FOR TREATMENT: Pt denies lethality to this worker. Pt contracts for safety and describes multiple coping skills to help keep her calm. Pt's also reports that he will be with the Pt throughout tonight and tomorrow until Pt can get into contact with her counselor. Both feel that she is safe to return home. BUDDY Cordero, updated on plan of care and is agreeable to discharge. BETSY Jones, updated. 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 Information Provided By: Patient Patient Support System: Current Living Arrangements: Lives with and elderly friends Type of Residence: Private residence Name and Contact of Collateral Provider: Mahendra (Spouse) [phone] LEGAL STATUS Voluntary DIAGNOSIS/ACTIVE PROBLEM LIST Hospital Problem List Codes Depression ICD-10-CM: F32.9 ICD-9-CM: 311 Non-Hospital Problem List Codes Diabetes mellitus, type 2 (HCC) ICD-10-CM: E11.9 ICD-9-CM: 250.00 Severe episode of recurrent major depressive disorder, without psychotic features (HCC) ICD-10-CM: F33.2 ICD-9-CM: 296.33 Generalized anxiety disorder ICD-10-CM: F41.1 ICD-9-CM: 300.02 Intellectual disability ICD-10-CM: F79 ICD-9-CM: 319 Intractable migraine without aura and without status migrainosus ICD-10-CM: G43.019 ICD-9-CM: 346.11 Hypertension ICD-10-CM: I10 ICD-9-CM: 401.9 Asthma ICD-10-CM: J45.909 ICD-9-CM: 493.90 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 ICD-9-CM: 755.50 Developmental Delay ICD-10-CM: R62.50 ICD-9-CM: 783.40 Problems in relationship with spouse or partner ICD-10-CM: Z63.0 ICD-9-CM: V61.8 Problem related to psychosocial circumstances ICD-10-CM: Z65.9 ICD-9-CM: V62.9 Non compliance w medication regimen ICD-10-CM: Z91.14 ICD-9-CM: V15.81 CHIEF COMPLAINT/HISTORY OF PRESENT ILLNESS Chief Complaint/History Present Illness Chief Complaint: Depressed Current Symptoms: Depression, Psychosis Psychosis: Hallucination Hallucination: Auditory Problems Related to: Social environment History of Present Illness: Patient (Pt) presents to the emergency department (ED) for depression. Pt reports she brought herself to the hospital today because she was having one of her episodes. Pt states that she has been feeling anxious and depressed. Pt denies suicidal/homicidal ideations. Pt claims that she cut herself on her hand today with a pocket knife however no injuries are noted. Pt then states that she heard a voice named Clyde that made her cut herself. Pt states she has been hearing voices for the past 3 months but denies that they have ever told her to harm herself before today. Pt states she has several voices Clyde who is a bully, Agata who is supernatural, Fatmata who is a lunatic, Addie who is her anger, Aylin who is her calmness, Anu who represents her fear, Sara who is her inner whore, Paty who is her sadness, Celeste that is her simple side and Jayne who is unable to speak but signs to her. Pt states that these voices regularly speak to her about various topics. Pt admits to being stressed because her works long hours and doesn't pay attention to her. Pt states she will not sign herself into the hospital as she feels safe returning home. Pt again denies any desire to harm herself or others. Pt states she has a counseling appointment a week from tomorrow that she will be attending. Pt follows at [facility] counseling every 2 weeks. Pt sees a counselor and psychiatrist. Pt is prescribed Risperdal and takes it as prescribed. Pt reports she has been hospitalized at [facility] int he past. Pt went to [facility] walk in clinic yesterday to have services set up through them as well. Pt states she is shuned by her family and they will not speak to her. Pt states that her family is upset that she has gotten back together with her after being for a year. Pt states she does not speak to her mother and that she attempted to speak to her father today but he did not answer her calls. Pt has 2 older brothers and an older sister that she does not get along. Pt reports that her mother, father, and sister all have depression. 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 Pt is currently unemployed. PAST PSYCHIATRIC HISTORY Past Psychiatric History Previous Psychiatric Diagnosis: Depression, Pt states schizophrenia Previous Psychiatric Medications: Anti-depressants Previous Psychiatric Hospitalizations: [facility] Current Psychiatric Medications: Risperdal ALCOHOL/DRUG ABUSE HISTORY Alcohol/Drug Abuse History Current Alcohol Use (Frequency): Denies Current Drug Use: No MENTAL STATUS EVALUATION Mental Status Evaluation General Appearance: Equal to stated age Orientation: Oriented to person, place, and time Level of Consciousness: Alert, Quiet/awake Mood/Affect: Anxious, Depressed Behavior: Cooperative, Appropriate to situation, Ability to maintain focus Remote Memory: WDL Language and Speech Content: Appropriate Preoccupations: External stressors Impulse Control: Is reflective and able to resist urges Insight: Awareness Judgment: Good PATIENT STRENGTHS Patient Strengths Patient Strengths: Basic self-care skills, Family/friends, Housing, Mental health services, Motivation to change RISK ASSESSMENT Risk Factors Recent Psychological Experiences: None Current Suicidal Ideation: No Previous Suicidal Ideation: No Current Suicide Attempt: No Previous Suicide Attempt: No Current Self Harm Behavior: Yes Describe Current Self Harm Behaviors: Pt states she cut herself with a pocket knife, no injuries noted Previous Self Harm Behavior: No Current Plans to Harm Another: No Previous Plans to Harm Another: No History of Attempts to Harm Another: No Access to Weapons: No Violent Episode: No Previous Violent Episode: No Family History of Suicide: No Family History of Mental Illness: Yes Describe Family History of Mental Illness: Mom, Dad, Sister-Depression Family History of Substance Abuse: Yes Describe Family History of Substance Abuse Text: Mom-alcoholic Elopement: No risk Methods to Calm Down: Quiet time in room, Talk with staff Restraint Risk Factors: None PROTECTIVE FACTORS Protective Factors Family and Community Support (Connectedness): Yes Ongoing Medical and Mental Health Services (Community Support): Yes Skills In Problem Solving and Conflict Resolution (Coping Skills): Yes Cultural and Moravian Beliefs: Yes Access to Weapons: No TREATMENT RECOMMENDATIONS AND CLINICAL SUMMARY Treatment Recommendations and Clinical Summary Current Recommendations: Referral for outpatient counseling RATIONALE/PLAN FOR TREATMENT: Spoke to DAYAMI Camacho, about Pt not wanting to stay at the hospital. Gisselle states she does not feel she can completed an involuntary admission on the Pt and will discharge her. Did call [facility] with Pt's permission to see if they could get her an earlier appointment which they could not. Pt again states she will not stay at the hospital and wants to return home. documented in this encounter Clinton Meza - 02/10/2019 6:36 PM Clinton Pop - 02/10/2019 6:29 PM Clinton Pop - 02/10/2019 6:27 PM Clinton Pop - 02/10/2019 5:45 PM Clinton Pop - 02/10/2019 5:43 PM EDT ED Notes (unrecognized secti on and content) [facility] in room thirty one Patient in bathroom at this time Bathroom at this time Nurse doing blood draw at this time Nurse in room with patient Patient now in room with BUDDY Cordero Patient changed into agown. PT REPORTS, THOUGHTS TO HARM SELF. SENT TO [facility] LAST December FOR SUICIDAL IDEATIONS. TODAY COULDN'T GET A HOLD OF COUNSELOR, DIDN'T KNOW WHAT ELSE TO DO, CAME TO ED FOR HELP. PSA taking Vitals at this time. documented in this encounter ED PROVIDER NOTE [facility] EMERGENCY DEPARTMENT NAME: Melissa Kaur AGE: 24 y.o. : 1995 VISIT DATE: 03/21/2019 CSN: [id number] PCP: Verona Hilliard MD Chief Complaint Patient presents with Nausea Abdominal Pain lower abdomen A 24-year-old coming to emergency room with her significant other concerning about acute intermittent lower abdominal cramps associated with nauseous feeling but no emesis or diarrhea. Patient states she did home test and there was a faint line. She wants to have a serum test stating that her urinary test has in the past to be negative even when she was . Patient denies fever chills body ache. Denies dysuria or gross hematuria or vaginal discharge or bleeding. His last period was several weeks ago. Patient is currently asymptomatic Past Medical History: Diagnosis Date Anxiety Depression Diabetes mellitus (HCC) Type 2 Diabetes mellitus, type 2 (HCC) Hyperlipidemia OCD (Obsessive Compulsive Disorder) Reactive airway disease Past Surgical History: Procedure Laterality Date CHOLECYSTECTOMY Family History Problem Relation Age of Onset Diabetes Mother Diabetes Father Heart disease Father Diabetes Maternal Grandmother Diabetes Paternal Grandmother Social History Socioeconomic History Marital status: Spouse name: Not on file Number of children: Not on file Years of education: Not on file Highest education level: Not on file Occupational History Not on file Social Needs Financial resource strain: Not on file Food insecurity: Worry: Not on file Inability: Not on file Transportation needs: Medical: Not on file Non-medical: Not on file Tobacco Use Smoking status: Current Every Day Smoker Packs/day: 0.50 Types: Cigarettes Last attempt to quit: 06/03/2016 Years since quittin.7 Smokeless tobacco: Never Used Substance and Sexual Activity Alcohol use: Not Currently Comment: rare Drug use: No Sexual activity: Yes Partners: Male Lifestyle Physical activity: Days per week: Not on file Minutes per session: Not on file Stress: Not on file Relationships Social connections: Talks on phone: Not on file Gets together: Not on file Attends adventism service: Not on file Active member of club or organization: Not on file Attends meetings of clubs or organizations: Not on file Relationship status: Not on file Other Topics Concern Not on file Social History Narrative Not on file Previous Medications Medication Sig albuterol 90 mcg/actuation inhaler Inhale 2 (two) puffs every 6 (six) hours as needed for wheezing . blood sugar diagnostic strips by Miscellaneous route daily as needed . blood-glucose meter kit Use as instructed . FLUoxetine (PROZAC) 40 MG capsule Take 40 mg by mouth daily . lancets (freestyle) 28 gauge Misc Inject 1 each as directed daily as needed . lisinopril (PRINIVIL,ZESTRIL) 2.5 MG tablet Take 1 (one) tablet (2.5 mg total) by mouth daily . metFORMIN (GLUCOPHAGE-XR) 500 MG 24 hr tablet Take 2 (two) tablets (1,000 mg total) by mouth 2 (two) times a day with breakfast and lunch . propranolol (INDERAL LA) 80 MG 24 hr capsule Take 1 (one) capsule (80 mg total) by mouth daily . risperiDONE (RISPERDAL) 0.25 MG tablet Take 0.25 to 0.5 mg (1 to 2 tablets) at bedtime as tolerated . Allergies Allergen Reactions Aluminum-Magnesium Hydroxide GI Intolerance Ondansetron Hcl GI Intolerance Seroquel [Quetiapine] Shortness Of Breath SOB AND HEART RACING Reglan [Metoclopramide Hcl] Hives No Known Allergies Review of Systems Constitutional: Negative for chills and fever. Gastrointestinal: Intermittent lower abdominal cramps Genitourinary: Negative for flank pain, frequency, hematuria, pelvic pain, urgency, vaginal bleeding, vaginal discharge and vaginal pain. Musculoskeletal: Negative for back pain. All other systems reviewed and are negative. Patient Vitals for the past 24 hrs: BP Temp Temp src Pulse Resp SpO2 Height Weight 03/21/19 2215 5' 3 70.8 kg (156 lb) 03/21/19 2213 114/77 98.9 F (37.2 C) Oral 84 18 98 % Physical Exam Vitals signs and nursing note reviewed. Constitutional: General: She is not in acute distress. Appearance: She is well-developed. She is not ill-appearing, toxic-appearing or diaphoretic. HENT: Head: Normocephalic and atraumatic. Mouth/Throat: Pharynx: No pharyngeal swelling or oropharyngeal exudate. Eyes: Extraocular Movements: Extraocular movements intact. Pupils: Pupils are equal, round, and reactive to light. Cardiovascular: Rate and Rhythm: Normal rate and regular rhythm. Heart sounds: Normal heart sounds. No murmur. No friction rub. Pulmonary: Effort: Pulmonary effort is normal. No respiratory distress. Breath sounds: Normal breath sounds. No stridor. No wheezing, rhonchi or rales. Chest: Chest wall: No tenderness. Abdominal: General: Abdomen is flat. Bowel sounds are normal. There is no distension or abdominal bruit. There are no signs of injury. Palpations: Abdomen is rigid. Tenderness: There is no tenderness. There is no right CVA tenderness, left CVA tenderness, guarding or rebound. Negative signs include Chowdary's sign and McBurney's sign. Hernia: No hernia is present. Skin: General: Skin is warm and dry. Neurological: General: No focal deficit present. Mental Status: She is alert and oriented to person, place, and time. Laboratory & Radiographic Imaging (if done): Results for orders placed or performed during the hospital encounter of 03/21/19 hCG, Blood,QUALitative Result Value Ref Range Beta-hCG Qual Negative Negative Urinalysis Result Value Ref Range Color, Urine Yellow Colorless, Yellow Clarity, Urine Hazy (A) Clear Specific [place] 1.020 1.005 - 1.025 pH, Urine 6.0 5.0 - 7.0 Protein, Urine Negative Negative mg/dL Glucose, Urine Negative Negative mg/dL Ketones, Urine Negative Negative mg/dL Bilirubin, Urine Negative Negative Urobilinogen, Urine >=4.0 (A) <2.0 mg/dL Blood, Urine Negative Negative Nitrite, Urine Negative Negative Leukocyte Esterase, Urine Trace (A) Negative WBCs, Urine 1 0 - 5 /hpf RBCs, Urine <1 0 - 3 /hpf Bacteria, Urine None Seen None Seen /hpf Squamous Epithelial 4 0 - 4 /hpf Sperm, Urine Present (A) None Seen /hpf Mucus, Urine Rare None Seen, Rare /lpf No orders to display Procedures MDM Number of Diagnoses or Management Options Abdominal cramps: Nausea: Diagnosis management comments: Patient presents to the emergency room concern about intermittent lower abdominal cramps for several days associated with intermittent nauseous feeling. She has not had vomiting or diarrhea episodes. Exam is unremarkable. It appears patient is concerned about possible . She had a home test which she said was faintly positive. Patient also states that her urine usually turns out to be negative even when she is which is unusual. So she is requesting serum which is negative here tonight. UA is unremarkable as well. She is currently asymptomatic. Patient discharged home with instruction to follow-up with her primary care physician if symptoms persist. . . Clinical Impression: 1. Abdominal cramps 2. Nausea ED Disposition ED Disposition Condition Comment Discharge Stable eMlissa Kaur discharged to home/self care in stable condition. Follow-up Information Follow-up information has not been specified. Contact information for after-discharge care Follow-up information has not been specified. Claude Peralta MD 03/21/19 0600 Pt states abdominal pain, nausea for 3 days with vomiting starting today. documented in this encounter PT AWAKE BUT RESTFUL ON CART. RESPS UNLABORED. NO VISIBLE DISTRESS OBSERVED AND NO C/O VOICED. DISCHARGE COMPLETED. PT RESTFUL WITHOUT C/O OR NEEDS VOICED. WAITING ON COMPLETION OF TEST RESULTS AND RE-EVAL / DISPOSITION. ED PROVIDER NOTE [facility] EMERGENCY DEPARTMENT NAME: Melissa Kaur AGE: 23 y.o. : 1995 VISIT DATE: 10/06/2018 CSN: [id number] PCP: Verona Hilliard MD Chief Complaint Patient presents with Shortness of Breath has been feeling SOB all day Hyperglycemia pt report s high BS, states it was 201 at home HPI patient is a 23-year-old with history of type 2 diabetes [id number]-tohazyqoz anxiety depression reactive airway disease who presents to the ED with complaints of cough congestion shortness of breath elevated blood sugars for 1 day today. The ED patient is awake is alert he does answer questions appropriately initial vitals blood pressure is 144/85 her pulse is 98 pulse ox is 97% on room air she is afebrile at 98.5 Fahrenheit. She said her blood sugars at home with 200 however POC in the ED note her blood sugar was 102 he denies any vomiting she denies any diarrhea constipation denies any midsternal chest pain or pressure. Patient said the cough has been moist productive of clear sputum with mild expiratory wheezing but denies any hematemesis any melena stool history recent hospitalization travel or sick contact. Past Medical History: Diagnosis Date Anxiety Depression Diabetes mellitus (HCC) Type 2 Diabetes mellitus, type 2 (HCC) Hyperlipidemia OCD (Obsessive Compulsive Disorder) Reactive airway disease Past Surgical History: Procedure Laterality Date CHOLECYSTECTOMY Family History Problem Relation Age of Onset Diabetes Mother Diabetes Father Heart disease Father Diabetes Maternal Grandmother Diabetes Paternal Grandmother Social History Socioeconomic History Marital status: Spouse name: Not on file Number of children: Not on file Years of education: Not on file Highest education level: Not on file Social Needs Financial resource strain: Not on file Food insecurity - worry: Not on file Food insecurity - inability: Not on file Transportation needs - medical: Not on file Transportation needs - non-medical: Not on file Occupational History Not on file Tobacco Use Smoking status: Current Every Day Smoker Types: Cigarettes Last attempt to quit: 06/03/2016 Years since quittin.3 Smokeless tobacco: Never Used Substance and Sexual Activity Alcohol use: Yes Comment: rare Drug use: No Sexual activity: Yes Partners: Male Other Topics Concern Not on file Social History Narrative Not on file Previous Medications Medication Sig albuterol 90 mcg/actuation inhaler Inhale 2 (two) puffs every 6 (six) hours as needed for wheezing . alogliptin 25 mg Tab Take 1 (one) tablet (25 mg total) by mouth daily . amitriptyline (ELAVIL) 75 MG tablet Take 1 (one) tablet (75 mg total) by mouth nightly . ARIPiprazole (ABILIFY) 5 MG tablet Take 1 (one) tablet (5 mg total) by mouth daily . blood sugar diagnostic strips by Miscellaneous route 2 (two) times a day as needed . blood-glucose meter kit Use as instructed . lancets (freestyle) 28 gauge Misc Inject 1 each as directed 2 (two) times a day as needed . lisinopril (PRINIVIL,ZESTRIL) 5 MG tablet Take 1 (one) tablet (5 mg total) by mouth daily . metFORMIN (GLUCOPHAGE-XR) 500 MG 24 hr tablet Take 2 (two) tablets (1,000 mg total) by mouth 2 (two) times a day with breakfast and lunch . norethindrone-ethinyl estradiol-iron (LOESTRIN FE 1.5/30, 28-DAY,) 1.5 mg-30 mcg (21)/75 mg (7) tablet Take 1 (one) tablet by mouth daily. Allergies Allergen Reactions Aluminum-Magnesium Hydroxide GI Intolerance Ondansetron Hcl GI Intolerance Seroquel [Quetiapine] Shortness Of Breath SOB AND HEART RACING No Known Allergies Review of Systems Constitutional: Negative for activity change, appetite change, chills and fever. HENT: Negative for congestion, trouble swallowing and voice change. Eyes: Negative for discharge. Respiratory: Positive for cough, shortness of breath and wheezing. Negative for choking, chest tightness and stridor. Cardiovascular: Negative for chest pain, palpitations and leg swelling. Gastrointestinal: Positive for nausea. Negative for abdominal distention, abdominal pain and vomiting. Endocrine: Negative. Genitourinary: Negative for hematuria. Musculoskeletal: Negative. Skin: Negative. Allergic/Immunologic: Negative. Neurological: Negative. Hematological: Negative. Psychiatric/Behavioral: Negative. Patient Vitals for the past 24 hrs: BP Temp Temp src Pulse Resp SpO2 Height Weight 10/06/18 2340 97 % 10/06/18 2301 (!) 144/85 98.5 F (36.9 C) Oral 98 14 98 % 04/30/19 2301 5' 3 80.7 kg (178 lb) Physical Exam Constitutional: She is oriented to person, place, and time. She appears well-developed and well-nourished. Non-toxic appearance. No distress. HENT: Head: Normocephalic and atraumatic. Mouth/Throat: Oropharynx is clear and moist. Eyes: Conjunctivae and EOM are normal. Pupils are equal, round, and reactive to light. No scleral icterus. Neck: Normal range of motion. Neck supple. Cardiovascular: Normal rate, regular rhythm and normal heart sounds. No murmur heard. Pulmonary/Chest: Effort normal. No respiratory distress. She has no decreased breath sounds. She has wheezes. Abdominal: Soft. Bowel sounds are normal. She exhibits no distension. There is no tenderness. Musculoskeletal: Right lower leg: She exhibits no swelling and no edema. Left lower leg: She exhibits no swelling and no edema. Neurological: She is alert and oriented to person, place, and time. Skin: Skin is warm and dry. No rash noted. Psychiatric: She has a normal mood and affect. Her behavior is normal. Nursing note and vitals reviewed. Laboratory & Radiographic Imaging (if done): Results for orders placed or performed during the hospital encounter of 10/06/18 Urinalysis Result Value Ref Range Color, Urine Yellow Colorless, Yellow Clarity, Urine Hazy (A) Clear Specific [place] 1.014 1.005 - 1.025 pH, Urine 5.0 5.0 - 7.0 Protein, Urine Negative Negative mg/dL Glucose, Urine 150 (A) Negative mg/dL Ketones, Urine >=80 (A) Negative mg/dL Bilirubin, Urine Negative Negative Urobilinogen, Urine <2.0 <2.0 mg/dL Blood, Urine Negative Negative Nitrite, Urine Negative Negative Leukocyte Esterase, Urine Small (A) Negative WBCs, Urine 17 (H) 0 - 5 /hpf RBCs, Urine 2 0 - 3 /hpf Bacteria, Urine Rare (A) None Seen /hpf Squamous Epithelial 8 (H) 0 - 4 /hpf Urine Result Value Ref Range Beta-hCG, Ur, Qual Negative Negative POC Glucose Result Value Ref Range Glucose 228 (H) 65 - 99 mg/dL XR Chest AP/PA and LAT Non-public Result 1. No acute cardiopulmonary process. 2. Cholecystectomy. Workstation ID: [id number] Procedures MDM Patient is a 23-year-old female presents to ED with complaints of cough congestion nausea intermittent for 1 day worsening today ED patient is awake is alert she is answering questions appropriately her vitals BP is 144/85 her pulse is 98 pulse ox 97% room air she is afebrile she is nontoxic looking benign physical exam with the exception of the mild respiratory wheezing noted on exam she denies any vomiting patient offered oral Zofran refused it chest x-ray PA lateral for pneumonia bronchitis also offered steroid patient refused review chest x-ray and treat appropriately. . Clinical Impression: SNOMED CT(R) 1. Viral upper respiratory infection VIRAL UPPER RESPIRATORY TRACT INFECTION ED Disposition ED Disposition Condition Comment Discharge Stable Melissa Kaur discharged to home/self care in stable condition. Follow-up Information 1. Verona Hilliard MD. Specialty: Family Medicine Why: If symptoms worsen [address] [facility] [address] Contact information for after-discharge care Follow-up information has not been specified. Kelsey Stewart MD 10/07/18 0107 PT STATES FEELING A LITTLE BETTER AFTER BREATHING TREATMENT PER RT. STATES IS A LITTLE JITTERY FROM BREATHING TREATMENT. UPDATED WAITING ON COMPLETION OF UA (URINE PREG) RESULTS AND PENDING CXR. WARMED BLANKETS GIVEN PER PT REQUEST. RT @ [facility]. PT TO BR TO ATTEMPT URINE SPECIMEN. PT REPORT RECEIVED FROM BRENNAN RN AND RENEE, RN. Pt ambulated to 12. Steady gait. Complaint of high BS and SOB. A&Ox3. No distress. Breathing even and unlabored. Lungs clear bilat. Assessment complete. call light [facility]. [facility] Expected date: Expected time: Means of arrival: Comments: SOCO documented in this encounter Patient was discharged Patient pacing in room at this time INSPECTOR MECHANICAL bedside [facility] ED PAUL Note: NAME: Melissa Karu 24 y.o. CSN: [id number] PCP: Verona Hilliard MD History: Chief Complaint: Mental Health Problem HPI: The history was obtained from the patient. Melissa is a 24 y.o. female who presents with a chief complaint of Mental Health Problem. Patient reports she feels stressed and anxious and overwhelmed often. Patient states she has been diagnosed with schizophrenia. Patient reports she had a episode today where 1 of the voices in her head told her to cut herself. Patient points to her left hand stating she superficially cut herself with a knife but no lacerations or abrasions are visualized. Patient reports that the voices to start to take over sometimes. Patient does report she hears voices all day long every day and they are currently manageable. Patient goes to [facility] for counseling and psychiatry care. Patient reports she has a counselor that her next appointment is March 19. Patient reports when she saw her psychiatrist in the end of February they recently started her on Risperdal 0.25 mg. Patient denies any suicidal ideation or homicidal ideation. Patient denies any drug or alcohol use. Patient reports she lives with her and some elderly people and feel safe at home. PMHx: Past Medical History: Diagnosis Date Anxiety Depression Diabetes mellitus (HCC) Type 2 Diabetes mellitus, type 2 (HCC) Hyperlipidemia OCD (Obsessive Compulsive Disorder) Reactive airway disease PMSx: Past Surgical History: Procedure Laterality Date CHOLECYSTECTOMY FAM. Hx: Family History Problem Relation Age of Onset Diabetes Mother Diabetes Father Heart disease Father Diabetes Maternal Grandmother Diabetes Paternal Grandmother SOC. Hx: Social History Socioeconomic History Marital status: Spouse name: Not on file Number of children: Not on file Years of education: Not on file Highest education level: Not on file Occupational History Not on file Social Needs Financial resource strain: Not on file Food insecurity: Worry: Not on file Inability: Not on file Transportation needs: Medical: Not on file Non-medical: Not on file Tobacco Use Smoking status: Current Every Day Smoker Packs/day: 0.50 Types: Cigarettes Last attempt to quit: 06/03/2016 Years since quittin.7 Smokeless tobacco: Never Used Substance and Sexual Activity Alcohol use: Not Currently Comment: rare Drug use: No Sexual activity: Yes Partners: Male Lifestyle Physical activity: Days per week: Not on file Minutes per session: Not on file Stress: Not on file Relationships Social connections: Talks on phone: Not on file Gets together: Not on file Attends adventism service: Not on file Active member of club or organization: Not on file Attends meetings of clubs or organizations: Not on file Relationship status: Not on file Other Topics Concern Not on file Social History Narrative Not on file MEDs: Previous Medications Medication Sig albuterol 90 mcg/actuation inhaler Inhale 2 (two) puffs every 6 (six) hours as needed for wheezing . FLUoxetine (PROZAC) 40 MG capsule Take 40 mg by mouth daily . lisinopril (PRINIVIL,ZESTRIL) 2.5 MG tablet Take 1 (one) tablet (2.5 mg total) by mouth daily . metFORMIN (GLUCOPHAGE-XR) 500 MG 24 hr tablet Take 2 (two) tablets (1,000 mg total) by mouth 2 (two) times a day with breakfast and lunch . propranolol (INDERAL LA) 80 MG 24 hr capsule Take 1 (one) capsule (80 mg total) by mouth daily . risperiDONE (RISPERDAL) 0.25 MG tablet Take 0.25 to 0.5 mg (1 to 2 tablets) at bedtime as tolerated . blood sugar diagnostic strips by Miscellaneous route daily as needed . blood-glucose meter kit Use as instructed . lancets (freestyle) 28 gauge Misc Inject 1 each as directed daily as needed . ALL: Allergies Allergen Reactions Aluminum-Magnesium Hydroxide GI Intolerance Ondansetron Hcl GI Intolerance Seroquel [Quetiapine] Shortness Of Breath SOB AND HEART RACING Reglan [Metoclopramide Hcl] Hives No Known Allergies ROS: Review of Systems Constitutional: Negative for chills, fatigue and fever. HENT: Negative for congestion, ear pain, facial swelling, rhinorrhea and sore throat. Eyes: Negative for photophobia, pain, discharge and visual disturbance. Respiratory: Negative for cough, shortness of breath, wheezing and stridor. Cardiovascular: Negative for chest pain and leg swelling. Gastrointestinal: Negative for abdominal pain, constipation, diarrhea, nausea and vomiting. Endocrine: Negative for polydipsia, polyphagia and polyuria. Genitourinary: Negative for difficulty urinating, dysuria, frequency and urgency. Musculoskeletal: Negative for arthralgias, myalgias and neck stiffness. Skin: Negative for rash and wound. Allergic/Immunologic: Negative for immunocompromised state. Neurological: Negative for weakness, numbness and headaches. Hematological: Negative for adenopathy. Does not bruise/bleed easily. Psychiatric/Behavioral: Positive for agitation and hallucinations. Negative for confusion and suicidal ideas. The patient is nervous/anxious. All other systems reviewed and are negative. Physical Exam: Patient Vitals for the past 24 hrs: BP Temp Temp src Pulse Resp SpO2 Height Weight 03/11/19 1055 119/65 98.5 F (36.9 C) Oral 78 16 97 % 03/11/19 1053 5' 3 70.8 kg (156 lb) Physical Exam Vitals signs reviewed. Constitutional: Appearance: She is well-developed. HENT: Head: Normocephalic and atraumatic. Nose: Nose normal. Mouth/Throat: Lips: [place]. Mouth: Mucous membranes are moist. Pharynx: Oropharynx is clear. Eyes: General: No scleral icterus. Conjunctiva/sclera: Conjunctivae normal. Cardiovascular: Rate and Rhythm: Regular rhythm. Pulses: Normal pulses. Heart sounds: Normal heart sounds. No murmur. Pulmonary: Effort: Pulmonary effort is normal. No respiratory distress. Breath sounds: Normal breath sounds. Abdominal: General: Bowel sounds are normal. Palpations: Abdomen is soft. Tenderness: There is no tenderness. Musculoskeletal: Normal range of motion. Right lower leg: She exhibits no swelling. No edema. Left lower leg: She exhibits no swelling. No edema. Skin: General: Skin is warm. Capillary Refill: Capillary refill takes less than 2 seconds. Findings: No rash. Comments: No abrasions or lacerations. Neurological: Mental Status: She is alert and oriented to person, place, and time. Psychiatric: Attention and Perception: She perceives auditory hallucinations. Mood and Affect: Mood normal. Speech: Speech normal. Behavior: Behavior is cooperative. Thought Content: Thought content does not include homicidal or suicidal ideation. Thought content does not include homicidal or suicidal plan. Comments: Patient reports she has daily auditory hallucinations. Laboratory & Radiological Imaging (if done): Labs Reviewed URINALYSIS - Abnormal; Notable for the following components: Result Value Clarity, Urine Hazy (*) Specific [place] 1.029 (*) Ketones, Urine Trace (*) Urobilinogen, Urine 2.0 (*) Squamous Epithelial 6 (*) Mucus, Urine Few (*) All other components within normal limits Narrative: Microscopic examination is performed on all urinalysis samples and only positive findings are reported. The test for blood on the chemical analytic portion of urinalysis may also be positive due to hemoglobinuria and myoglobinuria and if red blood cells are present they are quantified by microscopic examination. HCG URINE, QUALITATIVE - Normal DRUGS OF ABUSE SCREEN, URINE - Normal Narrative: Screen results should be used for treatment purposes only. ALCOHOL, MEDICAL - Normal No orders to display MDM: This is a 24-year-old female with history of schizophrenia. Patient denies being suicidal or homicidal. Patient does not want to be at admitted to the hospital at this time. Patient is her baseline and feels safe to go home. production worker called and spoke with [facility] and psychiatry center. patient is to keep her follow-up appointment on Friday the . Patient verbalized that she will return to the ER if she has thoughts of self-harm or harming others. Patient is emotionally stable and at her baseline. Pt.'s case discussed with Dr. Cannon. Will discharge home. Called and spoke with Pt's , Mahendra. Pt at baseline and okay for patient to be discharged home as well. Re-Evaluation: 1245: Doing well, will discharge home. Clinical Impression: 1. Anxiety Disposition: Patient is being discharged to home Gisselle Monterroso CNP ED Advanced Practice Provider [facility] Emergency Department (Please note that portions of this note have been completed with a voice recognition software. Efforts were made to correct any errors, but occasionally words are mis-transcribed.) Gisselle Monterroso CNP 03/11/19 1301 Nurse now doing a blood draw BLOCK INSPECTOR was in room with patient Guitar Player in room with patient DAYAMI Camacho cartside Pt in blue gown , sitter in place , all questions answered , will continue to monitor At Risk precautions: Room check At Risk Precautions - Room Check - Cord-like items removed from the room: Ophthalmoscope cord; Otoscope cord; Wall suction canister tubing; Telephone cords Plastic items removed from the room: None Trash cans cleaned and unlined: None Trash can: obtained paper liner from EVS: None Medical equipment removed from the room: IV pole; Nurse casino beverage server Misc. items removed from the room: Removable furniture; None; Cleaning supplies Cord-like Objects - Cord-like objects removed from room: None Suicide Check - Patient Location: In room Room Check: Yes Safety - Precautions: Suicide Interventions: Call avila within reach; Sitter; ID band on; Side rails up x2 Visual Checks: Every 15 mins Self Injurious Thoughts: Denies Self Injurious Behaviors: None observed Thoughts of Harming Others: Denies Harmful Actions Toward Others: None observed PT STATES SHE HAS BEEN DEPRESSED AND STARTED CUTTING HER LEFT HAND WITH A KNIFE. STATES SHE IS NOT SUICIDAL. JUST STRESSED. NO EVIDENCE OF CUTTING ON HAND documented in this encounter Walking in hallway without difficulty. States has worked in past to lower BS. Informed patient. Hailey STOCK states to revaluate blood sugar later. Voices understanding Notified Hailey STOCK. Of Blood Sugar Insulin given. IV bolus infusing Ambulated to restroom and back without difficulty or complaints Notified Hailey STOCK of Blood sugar. Changed orders. Blood Glucose obtained. Boluses infused Ambulated to restroom and back with stand by assist. States lightheadedness has improved Boluses 2 and 3 infusing without difficulty CRITICAL LAB: GLUCOSE = 460; READBACK COMPLETED; BLOCK INSPECTOR, HAILEY, MADE AWARE. ABG's completed. Patient to ED due to Heart racing And SOB. Dizziness and lightheaded noted Ambulated to restroom and backwith stand by assist. States is lightheaded Student Parmedic assisting with IV. Nicholas. Beginning assessments [facility] ED PAUL Note: NAME: Melissa Kaur 23 y.o. CSN: [id number] PCP: Verona Hilliard MD History: Chief Complaint: Shortness of Breath; Nausea; and Palpitations HPI: The history was obtained from the patient. Melissa is a 23 y.o. female who presents with a chief complaint of Shortness of Breath; Nausea; and Palpitations. Patient presents today with complaints of shortness of breath nausea and palpitations since this morning. She is a type II diabetic on oral medication. Patient reports her glucose was reading high and on the monitor this morning she is taken her insulin as ordered per her sliding scale however her last glucose prior to arrival was 362. Patient reports she is not usually short of breath. She denies any abdominal pain, chest pain, weakness, vomiting or diarrhea. She denies any recent illness. When asked status she states I do not know PMHx: Past Medical History: Diagnosis Date Anxiety Depression Diabetes mellitus (HCC) Type 2 Diabetes mellitus, type 2 (HCC) Hyperlipidemia OCD (Obsessive Compulsive Disorder) Reactive airway disease PMSx: Past Surgical History: Procedure Laterality Date CHOLECYSTECTOMY FAM. Hx: Family History Problem Relation Age of Onset Diabetes Mother Diabetes Father Heart disease Father Diabetes Maternal Grandmother Diabetes Paternal Grandmother SOC. Hx: Social History Socioeconomic History Marital status: Spouse name: Not on file Number of children: Not on file Years of education: Not on file Highest education level: Not on file Social Needs Financial resource strain: Not on file Food insecurity - worry: Not on file Food insecurity - inability: Not on file Transportation needs - medical: Not on file Transportation needs - non-medical: Not on file Occupational History Not on file Tobacco Use Smoking status: Current Every Day Smoker Types: Cigarettes Last attempt to quit: 06/03/2016 Years since quittin.3 Smokeless tobacco: Never Used Substance and Sexual Activity Alcohol use: Yes Comment: rare Drug use: No Sexual activity: Yes Partners: Male Other Topics Concern Not on file Social History Narrative Not on file MEDs: Previous Medications Medication Sig albuterol 90 mcg/actuation inhaler Inhale 2 (two) puffs every 6 (six) hours as needed for wheezing . alogliptin 25 mg Tab Take 1 (one) tablet (25 mg total) by mouth daily . amitriptyline (ELAVIL) 75 MG tablet Take 1 (one) tablet (75 mg total) by mouth nightly . ARIPiprazole (ABILIFY) 5 MG tablet Take 1 (one) tablet (5 mg total) by mouth daily . blood sugar diagnostic strips by Miscellaneous route 2 (two) times a day as needed . blood-glucose meter kit Use as instructed . lancets (freestyle) 28 gauge Misc Inject 1 each as directed 2 (two) times a day as needed . lisinopril (PRINIVIL,ZESTRIL) 5 MG tablet Take 1 (one) tablet (5 mg total) by mouth daily . metFORMIN (GLUCOPHAGE-XR) 500 MG 24 hr tablet Take 2 (two) tablets (1,000 mg total) by mouth 2 (two) times a day with breakfast and lunch . norethindrone-ethinyl estradiol-iron (LOESTRIN FE 1.5/30, 28-DAY,) 1.5 mg-30 mcg (21)/75 mg (7) tablet Take 1 (one) tablet by mouth daily. ALL: Allergies Allergen Reactions Aluminum-Magnesium Hydroxide GI Intolerance Ondansetron Hcl GI Intolerance Seroquel [Quetiapine] Shortness Of Breath SOB AND HEART RACING No Known Allergies ROS: Review of Systems Positives and pertinent negatives as per HPI. All other systems were reviewed and are negative. Physical Exam: Patient Vitals for the past 24 hrs: BP Temp Temp src Pulse Resp SpO2 Height Weight 10/05/18 0024 (!) 141/90 98.3 F (36.8 C) Oral 82 (!) 20 97 % 10/04/18 2245 (!) 116/49 98.2 F (36.8 C) 86 (!) 20 99 % 10/04/18 2200 (!) 157/98 91 99 % 10/04/18 2145 (!) 148/95 87 (!) 20 100 % 10/04/18 2100 (!) 145/108 98.2 F (36.8 C) Oral 95 18 100 % 10/04/181938 139/89 98.4 F (36.9 C) Oral 96 98 % 10/04/18 193 5' 3 80.7 kg (178 lb) Physical Exam Constitutional: She is oriented to person, place, and time. She appears well-developed. HENT: Head: Normocephalic and atraumatic. Nose: Nose normal. Eyes: Conjunctivae are normal. No scleral icterus. Cardiovascular: Normal rate and regular rhythm. No murmur heard. Pulmonary/Chest: Effort normal and breath sounds normal. No stridor. No respiratory distress. She has no wheezes. No cough noted Musculoskeletal: Right lower leg: She exhibits no swelling and no edema. Left lower leg: She exhibits no swelling and no edema. Lymphadenopathy: She has no cervical adenopathy. Neurological: She is alert and oriented to person, place, and time. Skin: Skin is warm and dry. No rash noted. Psychiatric: She has a normal mood and affect. Her behavior is normal. Laboratory & Radiological Imaging (if done): Labs Reviewed COMPREHENSIVE METABOLIC PANEL - Abnormal; Notable for the following components: Result Value Glucose 460 (*) All other components within normal limits Narrative: The eGFR should be used for monitoring renal function only and not for medication dosing. URINALYSIS - Abnormal; Notable for the following components: Glucose, Urine >=500 (*) All other components within normal limits Narrative: Microscopic examination is performed on all urinalysis samples and only positive findings are reported. The test for blood on the chemical analytic portion of urinalysis may also be positive due to hemoglobinuria and myoglobinuria and if red blood cells are present they are quantified by microscopic examination. POC GLUCOSE - RALS - Abnormal; Notable for the following components: Glucose 442 (*) All other components within normal limits Narrative: Critical result acted upon time of test. Test performed at bedside. POC GLUCOSE - RALS - Abnormal; Notable for the following components: Glucose 377 (*) All other components within normal limits POC GLUCOSE - RALS - Abnormal; Notable for the following components: Glucose 383 (*) All other components within normal limits POC GLUCOSE - RALS - Abnormal; Notable for the following components: Glucose 338 (*) All other components within normal limits HCG URINE, QUALITATIVE - Normal BETA-HYDROXYBUTYRATE - Normal D-DIMER, QUANTITATIVE - Normal Narrative: A D-dimer concentration of <0.5 micrograms per milliliter FEU is considered a low probability for pulmonary embolus (PE) and deep venous thrombosis (DVT). Results of this test should always be interpreted in conjunction with the patient's medical history,clinical presentation, and other findings. Clinical diagnosis should not be based on the results of the D-dimer alone. CBC AND DIFFERENTIAL Narrative: The following orders were created for panel order CBC w/ Diff. Procedure Abnormality Status --------- ------ CBC Auto Differential[[id number]] Final result Please view results for these tests on the individual orders. POC GLUCOSE POC GLUCOSE POC ARTERIAL BLOOD GAS PANEL-PULM - RALS CBC WITH AUTO DIFFERENTIAL XR Chest AP/PA and LAT Non-public Result No acute cardiopulmonary disease. Workstation ID: [id number] MDM: ED Course as of Oct 05 114 Sun Oct 04, [id number] Glucose: (!!) 442 [SS] 2057 Plan to initiate fluid resuscitation and evaluate for possible DKA. [SS] 2300 D-Dimer: 0.31 [SS] 2300 Beta-Hydroxybutyrate: 0.2 [SS] 2323 Plan to continue with an additional 1 L fluid. And 10 units subcu regular insulin. Patient has been instructed on appropriate monitoring of her glucose at home. Instructed to keep a log and follow-up with her PCP this week for further evaluation. [SS] Mon Oct 05, 2018 0045 Recheck glucose level at approximately 1 AM [SS] 0047 XR Chest AP/PA and LAT [SS] 0056 Plan to DC home if [SS] ED Course User Index [SS] Hailey Paiz CNP . Clinical Impression: SNOMED CT(R) 1. Hyperglycemia HYPERGLYCEMIA 2. Diabetes mellitus due to underlying condition with hyperosmolarity 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, without long-term current use of insulin (HCC) SECONDARY DIABETES MELLITUS Disposition: Patient is being discharge home. ELIF Wilhelm ED Advanced Practice Provider [facility] Emergency Department (Please note that portions of this note have been completed with a voice recognition software. Efforts were made to correct any errors, but occasionally words are mis-transcribed.) Hailey Paiz CNP 10/05/18 0115 PT STATES FEELING SOB, NAUSEATED. STATES AFTER EATING SOMETHING, HEART BEGAN RACING AND FELT LIKE WAS GOING TO THROW UP. CHECKED FINGER STICK BLOOD SUGAR AND WAS AT 362. documented in this encounter ED Attestation Note - Lloyd Quiles MD - 02/10/2019 7:19 PM EDTED Attestation Note - Lloyd Quiles MD - 02/10/2019 7:19 PM EDTED Attestation Note - Charlie Cannon MD - 03/11/2019 12:48 PM EDT Miscellaneous Notes (unrecog nized section and content) ED Attestation: I was personally available for consult in the emergency department. I have reviewed the chart and agree with the documentation as recorded by the PAUL (Advanced Practice Provider), including the assessment, treatment plan, and disposition I was present and available for consultation in the emergency department I have reviewed the patient's records in brief and agree with PAUL's clinical impression, management and disposition. ED Attestation documented in this encounter COVID Screening Questions Have you been in close contact with anyone confirmed to have coronavirus/COVID- 19 in the past 14 days? No Have you traveled out of state or internationally in the past 14 days? No Have you been/visited a long-term in the past two weeks? No Have you been hospitalized for any reason in the past two weeks? No In the last 24 hours have you had any of the following symptoms? Fever over 100 F No Cough No Shortness of breath or difficulty breathing No Chills or repeated shaking with chills No Muscle pain, headache, or sore throat No Any loss of taste or smell No Diarrhea No If the patient answers yes to any of the above questions, consult the ordering polysomnographic technologist to determine if patient needs COVID test or procedure postponed for at least 14 days. documented in this encounter ED Attestation ED Attestation: I did not examine this patient, however the PAUL did ask me a couple questions, regarding this patient's ED care, treatment, results, and/or disposition. However, I did not actually introduce myself to the patient, nor did I actually exam the patient. The PAUL evaluated the patient independently for a complaint of Mental Health Problem, and completed their own examination, documentation, and discharge. Patient with schizophrenia, with chronic auditory hallucinations, comes in with increased stress, and one episode of cutting for stress relief. No significant injuries, currently returned to baseline, no SI or HI, continual age at baseline, no VH. Collateral obtained from documented in this encounter ED Attestation: I was personally available for consult in the emergency department. I have reviewed the chart and agree with the documentation as recorded by the PAUL (Advanced Practice Provider), including the assessment, treatment plan, and disposition documented in this encounter Srini Medina MD - 07/19/2020 9:00 AM EST Procedure Notes (unrecognize d section and content) Associated Order(s): EEG (STANDARD) [facility] EEG Report Reason for EEG: Spells Summary: This is a 16 channel digital EEG recording. There is a moderately well-developed, moderately well organized background activity with a posterior dominant rhythm of 9-10 hz. Hyperventilation was not done. Photic stimulation produced no driving. Patient became drowsy. No sleep patterns are noted. No clear epileptiform discharges or ictal activity were seen. Impression: This is a normal EEG in the awake and drowsy states. There is no clear electrodiagnostic evidence of a diffuse or focal neurophysiological disturbance. No clear epileptiform discharges or ictal activity was seen. documented in this encounter <item> Privacy Markings (unrecogniz ed section and content) Section Author: Amanda Etienne PROHIBITION ON REDISCLOSURE OF CONFIDENTIAL INFORMATION This notice accompanies a disclosure of information concerning a client made to you with the consent of such client. Care Teams (unrecognized sec tion and content) Esthetic Dermatologist Relationship Specialty Start Date End Date Marshall Brown MD [address] [place] [address] PCP - General 05/15/22 Esthetic Dermatologist Relationship Specialty Start Date End Date Jamari Byrne MD [address] [facility], [place] [address] [place] [phone] PCP - General 11/12/21 Esthetic Dermatologist Relationship Specialty Start Date End Date Jamari Byrne MD [address] [facility], [place] [address] [place] [phone] PCP - General 11/12/21 Jamari Byrne MD [address] [facility], [place] [address] [place] [phone] PCP - [employer] [facility] PCP 10/07/22 Esthetic Dermatologist Relationship Specialty Start Date End Date Jamari Byrne MD [address] [facility], [place] [address] [place] [phone] PCP - General 11/12/21 Jamari Byrne MD [address] [facility], [place] [address] [place] [address] PCP - [employer] [facility] PCP 10/07/22 Esthetic Dermatologist Relationship Specialty Start Date End Date Jamari Byrne MD [address] [facility], [place] [address] [place] [phone] PCP - General 11/12/21 Jamari Byrne MD [address] [facility], [place] [address] [place], [facility]05 PCP - [employer] [facility] PCP 10/07/22 Esthetic Dermatologist Relationship Specialty Start Date End Date Jamari Byrne MD [address] [place] [phone] PCP - General Family Medicine 08/19/23 Esthetic Dermatologist Relationship Specialty Start Date End Date Jamari Byrne MD [address] [facility], [place] [address] [place], [facility]05 PCP - General 11/12/21 Jamari Byrne MD [address] [facility], [facility] [address] [place], [facility]05 PCP - [employer] [facility] PCP 10/07/22 Esthetic Dermatologist Relationship Specialty Start Date End Date Jamari Byrne MD [address] [place] [phone] PCP - General Family Medicine 08/19/23 Esthetic Dermatologist Relationship Specialty Start Date End Date Jamari Byrne MD [address] [facility], [place] [address] [place] [address] PCP - General 11/12/21 Jamari Byrne MD [address] [facility], [place] [address] [place], [facility]05 PCP - [employer] [facility] PCP 10/07/22 Esthetic Dermatologist Relationship Specialty Start Date End Date Jamari Byrne MD [address] [place], [phone] PCP - General Family Medicine 08/19/23 Esthetic Dermatologist Relationship Specialty Start Date End Date Jamari Byrne MD [address] [place] [phone] PCP - General Family Medicine 08/19/23 Esthetic Dermatologist Relationship Specialty Start Date End Date Jamari Byrne MD [address] [facility], [place] [address] [place], [place] [address] PCP - General 11/12/21 Jamari Byrne MD [address] [facility], [facility] [address] [place] [address] PCP - [facility] [place] [place] [facility] PCP 10/07/22 Esthetic Dermatologist Relationship Specialty Start Date End Date Jamari Byrne MD [address] [place] [phone] PCP - General Family Medicine 08/19/23 Esthetic Dermatologist Relationship Specialty Start Date End Date Jamari Byrne MD [address] [place] [phone] PCP - General Family Medicine 08/19/23 Esthetic Dermatologist Relationship Specialty Start Date End Date Jamari Byrne MD [address] [facility], [place] [address] [place] [address] PCP - General 11/12/21 Jamari Byrne MD [address] [facility], [place] [address] [place] [address] PCP - [facility] PCP 10/07/22 Esthetic Dermatologist Relationship Specialty Start Date End Date Jamari Byrne MD [address] [place] [phone] PCP - General Family Medicine 08/19/23 Esthetic Dermatologist Relationship Specialty Start Date End Date Jamari Byrne MD [address] [phone] PCP - General Family Medicine 08/19/23 Esthetic Dermatologist Relationship Specialty Start Date End Date Jamari Byrne MD [address] [address] PCP - General Family Medicine 08/19/23 Esthetic Dermatologist Relationship Specialty Start Date End Date Jamari Byrne MD [address] [address] PCP - General Family Medicine 08/19/23 Esthetic Dermatologist Relationship Specialty Start Date End Date Jamari Byrne MD [address] [address] PCP - General Family Medicine 08/19/23 Esthetic Dermatologist Relationship Specialty Start Date End Date Jamari Byrne MD [address] [place] [address] PCP - General Family Medicine 08/19/23 Esthetic Dermatologist Relationship Specialty Start Date End Date Jamari Byrne MD [address] [facility], [place] [address] [place] [address] PCP - General 11/12/21 Jamari Byrne MD [address] [facility], [place] [address] [place] [address] PCP - [employer] [facility] PCP 10/07/22 Esthetic Dermatologist Relationship Specialty Start Date End Date Jamari Byrne MD [address] [facility], [place] [address] [place], [facility]05 PCP - General 11/12/21 Jamari Byrne MD [address] [facility], [place] [address] [place] [phone] PCP - [employer] [facility] PCP 10/07/22 Esthetic Dermatologist Relationship Specialty Start Date End Date Jamari Byrne MD [address] [facility], [place] [address] [place], [facility]05 PCP - General 11/12/21 Jamari Byrne MD [address] [facility], [place] [address] [place] [address] PCP - [employer] [facility] PCP 10/07/22 Esthetic Dermatologist Relationship Specialty Start Date End Date Jamari Byrne MD [address] [place] [address] PCP - General Family Medicine 08/19/23 Esthetic Dermatologist Relationship Specialty Start Date End Date Jamari Byrne MD [address] [place] [phone] PCP - General Family Medicine 08/19/23 Esthetic Dermatologist Relationship Specialty Start Date End Date Jamari Byrne MD [address] [place] [phone] PCP - General Family Medicine 08/19/23 Esthetic Dermatologist Relationship Specialty Start Date End Date Jamari Byrne MD [address] [place] [phone] PCP - General Family Medicine 08/19/23 Esthetic Dermatologist Relationship Specialty Start Date End Date Jamari Byrne MD [address] [place] [phone] PCP - General Family Medicine 08/19/23 Esthetic Dermatologist Relationship Specialty Start Date End Date Jamari Byrne MD [address] [facility], [place] [address] PCP - General 11/12/21 Jamari Byrne MD [address] [facility], [address], [facility]05 [facility] - [facility] PCP 10/07/22 Esthetic Dermatologist Relationship Specialty Start Date End Date Jamari Byrne MD [address] [place] [phone] PCP - General Family Medicine 08/19/23 Esthetic Dermatologist Relationship Specialty Start Date End Date Jamari Byrne MD [address] [place], [facility] PCP - General Family Medicine 08/19/23 Esthetic Dermatologist Relationship Specialty Start Date End Date Jamari Byrne MD [address] [place], [facility] PCP - General Family Medicine 08/19/23 Esthetic Dermatologist Relationship Specialty Start Date End Date Jamari Byrne MD [address] [place] [phone] PCP - General Family Medicine 08/19/23 Esthetic Dermatologist Relationship Specialty Start Date End Date Jamari Byrne MD [address] [place] [phone] PCP - General Family Medicine 08/19/23 Esthetic Dermatologist Relationship Specialty Start Date End Date Jamari Byrne MD [address] [place] [phone] PCP - General Family Medicine 08/19/23 Esthetic Dermatologist Relationship Specialty Start Date End Date Jamari Byrne MD [address] [place], [place] [address] PCP - General Family Medicine 08/19/23 Esthetic Dermatologist Relationship Specialty Start Date End Date Jamari Byrne MD [address] [place], [facility] PCP - General Family Medicine 08/19/23 Esthetic Dermatologist Relationship Specialty Start Date End Date Jamari Byrne MD [address] [facility] [place] [address] PCP - General Family Medicine 08/19/23 Esthetic Dermatologist Relationship Specialty Start Date End Date Jamari Byrne MD [address] [place] [address] PCP - General Family Medicine 08/19/23 Esthetic Dermatologist Relationship Specialty Start Date End Date Jamari Byrne MD [address] [place] [address] PCP - General Family Medicine 08/19/23 Esthetic Dermatologist Relationship Specialty Start Date End Date Jamari Byrne MD [address] [place] [phone] PCP - General Family Medicine 08/19/23 Esthetic Dermatologist Relationship Specialty Start Date End Date Jamari Byrne MD [address] [place], [facility] PCP - General Family Medicine 08/19/23 Esthetic Dermatologist Relationship Specialty Start Date End Date Jamari Byrne MD [address] [facility], [facility] [address] [place] [phone] PCP - General 11/12/21 Jamari Byrne MD [address] [facility], [facility] [address] [place] [address] [facility] PCP 10/07/22 Esthetic Dermatologist Relationship Specialty Start Date End Date Jamari Byrne MD [address] [place] [phone] PCP - General Family Medicine 08/19/23 Esthetic Dermatologist Relationship Specialty Start Date End Date Jamari Byrne MD [address] [place] [phone] PCP - General Family Medicine 08/19/23 Esthetic Dermatologist Relationship Specialty Start Date End Date Jamari Byrne MD [address] [place] [phone] PCP - General Family Medicine 08/19/23 Esthetic Dermatologist Relationship Specialty Start Date End Date Jamari Byrne MD [address] [address] PCP - General Family Medicine 08/19/23 Team Status: Active Member Role Status Dates No Primary Care Physician Family Provider Active Dr. Jamari Byrne MD Primary Care Provider Active Team Status: Inactive Member Role Status Dates Dr. Jamari Byrne MD Primary Care Provider Active Start: September 24, 2024 End: September 24, 2024 Leonie Waldron CNM Attending Provider Active St art: September 24, 2024 End: September 24, 2024 Leonie Waldron CNM Referring Provider Active St art: September 24, 2024 End: September 24, 2024 Esthetic Dermatologist Relationship Specialty Start Date End Date Jamari Byrne MD [address] [place] [phone] PCP - General Family Medicine 08/19/23 Esthetic Dermatologist Relationship Specialty Start Date End Date Jamari Byrne MD [address] [place] [address] PCP - General Family Medicine 08/19/23 Esthetic Dermatologist Relationship Specialty Start Date End Date Jamari Byrne MD [address] [place] [phone] PCP - General Family Medicine 08/19/23 Esthetic Dermatologist Relationship Specialty Start Date End Date Jamari Byrne MD [address] [place] [phone] PCP - General Family Medicine 08/19/23 Esthetic Dermatologist Relationship Specialty Start Date End Date Jamari Byrne MD [address] [place] [address] PCP - General Family Medicine 08/19/23 Esthetic Dermatologist Relationship Specialty Start Date End Date Jamari Byrne MD [address] [place] [address] PCP - General Family Medicine 08/19/23 Team Status: Inactive Member Role Status Dates Dr. Jamari Byrne MD Primary Care Provider Active Start: October 16, 2024 End: October 16, 2024 Mariajose Nickerson CNM Attending Provider Active Start: October 16, 2024 End: October 16, 2024 Esthetic Dermatologist Relationship Specialty Start Date End Date Jamari Byrne MD [address] [place] [phone] PCP - General Family Medicine 08/19/23 Esthetic Dermatologist Relationship Specialty Start Date End Date Jamari Byrne MD [address] [place] [phone] PCP - General Family Medicine 08/19/23 Esthetic Dermatologist Relationship Specialty Start Date End Date Jamari Byrne MD [address] [place] [phone] PCP - General Family Medicine 08/19/23 Esthetic Dermatologist Relationship Specialty Start Date End Date Jamari Byrne MD [address] [place] [address] PCP - General Family Medicine 08/19/23 Esthetic Dermatologist Relationship Specialty Start Date End Date Jamari Byrne MD [address] [place] [address] PCP - General Family Medicine 08/19/23 Esthetic Dermatologist Relationship Specialty Start Date End Date Jamari Byrne MD [address] [place], [facility] PCP - General Family Medicine 08/19/23 Esthetic Dermatologist Relationship Specialty Start Date End Date Jamari Byrne MD [address] [place], [facility] PCP - General Family Medicine 08/19/23 Esthetic Dermatologist Relationship Specialty Start Date End Date Jamrai Byrne MD [address] [place], [facility] PCP - General Family Medicine 08/19/23 Esthetic Dermatologist Relationship Specialty Start Date End Date Jamari Byrne MD [address] [address] PCP - General Family Medicine 08/19/23 Esthetic Dermatologist Relationship Specialty Start Date End Date Jamari Byrne MD [address] [place] [address] PCP - General Family Medicine 08/19/23 Esthetic Dermatologist Relationship Specialty Start Date End Date Jamari Byrne MD [address] [place] [address] PCP - General Family Medicine 08/19/23 Esthetic Dermatologist Relationship Specialty Start Date End Date Jamari Byrne MD [address] [place] [address] PCP - General Family Medicine 08/19/23 Esthetic Dermatologist Relationship Specialty Start Date End Date Jamari Byrne MD [address] [place] [address] PCP - General Family Medicine 08/19/23 Esthetic Dermatologist Relationship Specialty Start Date End Date Jamari Byrne MD [address] [place] [address] PCP - General Family Medicine 08/19/23 Esthetic Dermatologist Relationship Specialty Start Date End Date Jamari Byrne MD [address] [place] [address] PCP - General Family Medicine 08/19/23 Esthetic Dermatologist Relationship Specialty Start Date End Date Jamari Byrne MD [address] [place] [address] PCP - General Family Medicine 08/19/23 Team Status: Inactive Member Role Status Dates Dr. Jamari Byrne MD Primary Care Provider Active Start: November 15, 2024 End: November 15, 2024 Dr. Whit Patel MD Attending Provider Ac tive Start: November 15, 2024 End: November 15, 2024 Dr. Whit Patel MD Referring Provider Ac tive Start: November 15, 2024 End: November 15, 2024 Esthetic Dermatologist Relationship Specialty Start Date End Date Jamari Byrne MD [address] [facility], [phone] PCP - General Family Medicine 08/19/23 Esthetic Dermatologist Relationship Specialty Start Date End Date Jamari Byrne MD [address] [place] [phone] PCP - General Family Medicine 08/19/23 Esthetic Dermatologist Relationship Specialty Start Date End Date Jamari Byrne MD [address] [place] [phone] PCP - General Family Medicine 08/19/23 Esthetic Dermatologist Relationship Specialty Start Date End Date Jamari Byrne MD [address] [place] [address] PCP - General Family Medicine 08/19/23 Esthetic Dermatologist Relationship Specialty Start Date End Date Jamari Byrne MD [address] [place] [phone] PCP - General Family Medicine 08/19/23 Esthetic Dermatologist Relationship Specialty Start Date End Date Jamari Byrne MD [address] [place] [phone] PCP - General Family Medicine 08/19/23 Source Comments (unrecognize d section and content) In the event this informatio n is protected by the Federal Confidentiality of Alcohol and Drug Abuse Patient Records regulations: The Federal rules restrict any use of the information to criminally investigate or prosecute any alcohol or drug abuse patient.[facility] HospitalIn the event this information is protected by the Federal Confidentiality of Alcohol and Drug Abuse Patient Records regulations: The Federal rules restrict any use of the information to criminally investigate or prosecute any alcohol or drug abuse patient.[facility] HospitalIn the event this information is protected by the Federal Confidentiality of Alcohol and Drug Abuse Patient Records regulations: The Federal rules restrict any use of the information to criminally investigate or prosecute any alcohol or drug abuse patient.[facility] HospitalIn the event this information is protected by the Federal Confidentiality of Alcohol and Drug Abuse Patient Records regulations: The Federal rules restrict any use of the information to criminally investigate or prosecute any alcohol or drug abuse patient.[facility] HospitalIn the event this information is protected by the Federal Confidentiality of Alcohol and Drug Abuse Patient Records regulations: The Federal rules restrict any use of the information to criminally investigate or prosecute any alcohol or drug abuse patient.[facility] HospitalIn the event this information is protected by the Federal Confidentiality of Alcohol and Drug Abuse Patient Records regulations: The Federal rules restrict any use of the information to criminally investigate or prosecute any alcohol or drug abuse patient.[facility] HospitalIn the event this information is protected by the Federal Confidentiality of Alcohol and Drug Abuse Patient Records regulations: The Federal rules restrict any use of the information to criminally investigate or prosecute any alcohol or drug abuse patient.[facility] HospitalIn the event this information is protected by the Federal Confidentiality of Alcohol and Drug Abuse Patient Records regulations: The Federal rules restrict any use of the information to criminally investigate or prosecute any alcohol or drug abuse patient.[facility] HospitalIn the event this information is protected by the Federal Confidentiality of Alcohol and Drug Abuse Patient Records regulations: The Federal rules restrict any use of the information to criminally investigate or prosecute any alcohol or drug abuse patient.[facility] HospitalIn the event this information is protected by the Federal Confidentiality of Alcohol and Drug Abuse Patient Records regulations: The Federal rules restrict any use of the information to criminally investigate or prosecute any alcohol or drug abuse patient.[facility] HospitalIn the event this information is protected by the Federal Confidentiality of Alcohol and Drug Abuse Patient Records regulations: The Federal rules restrict any use of the information to criminally investigate or prosecute any alcohol or drug abuse patient.[facility] HospitalIn the event this information is protected by the Federal Confidentiality of Alcohol and Drug Abuse Patient Records regulations: The Federal rules restrict any use of the information to criminally investigate or prosecute any alcohol or drug abuse patient.[facility] HospitalIn the event this information is protected by the Federal Confidentiality of Alcohol and Drug Abuse Patient Records regulations: The Federal rules restrict any use of the information to criminally investigate or prosecute any alcohol or drug abuse patient.[facility] HospitalIn the event this information is protected by the Federal Confidentiality of Alcohol and Drug Abuse Patient Records regulations: The Federal rules restrict any use of the information to criminally investigate or prosecute any alcohol or drug abuse patient.[facility] HospitalIn the event this information is protected by the Federal Confidentiality of Alcohol and Drug Abuse Patient Records regulations: The Federal rules restrict any use of the information to criminally investigate or prosecute any alcohol or drug abuse patient.[facility] HospitalIn the event this information is protected by the Federal Confidentiality of Alcohol and Drug Abuse Patient Records regulations: The Federal rules restrict any use of the information to criminally investigate or prosecute any alcohol or drug abuse patient.[facility] HospitalIn the event this information is protected by the Federal Confidentiality of Alcohol and Drug Abuse Patient Records regulations: The Federal rules restrict any use of the information to criminally investigate or prosecute any alcohol or drug abuse patient.[facility] HospitalIn the event this information is protected by the Federal Confidentiality of Alcohol and Drug Abuse Patient Records regulations: The Federal rules restrict any use of the information to criminally investigate or prosecute any alcohol or drug abuse patient.[facility] HospitalIn the event this information is protected by the Federal Confidentiality of Alcohol and Drug Abuse Patient Records regulations: The Federal rules restrict any use of the information to criminally investigate or prosecute any alcohol or drug abuse patient.[facility] HospitalIn the event this information is protected by the Federal Confidentiality of Alcohol and Drug Abuse Patient Records regulations: The Federal rules restrict any use of the information to criminally investigate or prosecute any alcohol or drug abuse patient.[facility] HospitalIn the event this information is protected by the Federal Confidentiality of Alcohol and Drug Abuse Patient Records regulations: The Federal rules restrict any use of the information to criminally investigate or prosecute any alcohol or drug abuse patient.[facility] HospitalIn the event this information is protected by the Federal Confidentiality of Alcohol and Drug Abuse Patient Records regulations: The Federal rules restrict any use of the information to criminally investigate or prosecute any alcohol or drug abuse patient.[facility] HospitalIn the event this information is protected by the Federal Confidentiality of Alcohol and Drug Abuse Patient Records regulations: The Federal rules restrict any use of the information to criminally investigate or prosecute any alcohol or drug abuse patient.[facility] HospitalIn the event this information is protected by the Federal Confidentiality of Alcohol and Drug Abuse Patient Records regulations: The Federal rules restrict any use of the information to criminally investigate or prosecute any alcohol or drug abuse patient.[facility] HospitalIn the event this information is protected by the Federal Confidentiality of Alcohol and Drug Abuse Patient Records regulations: The Federal rules restrict any use of the information to criminally investigate or prosecute any alcohol or drug abuse patient.[facility] HospitalIn the event this information is protected by the Federal Confidentiality of Alcohol and Drug Abuse Patient Records regulations: The Federal rules restrict any use of the information to criminally investigate or prosecute any alcohol or drug abuse patient.[facility] HospitalIn the event this information is protected by the Federal Confidentiality of Alcohol and Drug Abuse Patient Records regulations: The Federal rules restrict any use of the information to criminally investigate or prosecute any alcohol or drug abuse patient.[facility] HospitalIn the event this information is protected by the Federal Confidentiality of Alcohol and Drug Abuse Patient Records regulations: The Federal rules restrict any use of the information to criminally investigate or prosecute any alcohol or drug abuse patient.[facility] HospitalIn the event this information is protected by the Federal Confidentiality of Alcohol and Drug Abuse Patient Records regulations: The Federal rules restrict any use of the information to criminally investigate or prosecute any alcohol or drug abuse patient.[facility] HospitalIn the event this information is protected by the Federal Confidentiality of Alcohol and Drug Abuse Patient Records regulations: The Federal rules restrict any use of the information to criminally investigate or prosecute any alcohol or drug abuse patient.[facility] HospitalIn the event this information is protected by the Federal Confidentiality of Alcohol and Drug Abuse Patient Records regulations: The Federal rules restrict any use of the information to criminally investigate or prosecute any alcohol or drug abuse patient.[facility] HospitalIn the event this information is protected by the Federal Confidentiality of Alcohol and Drug Abuse Patient Records regulations: The Federal rules restrict any use of the information to criminally investigate or prosecute any alcohol or drug abuse patient.[facility] HospitalIn the event this information is protected by the Federal Confidentiality of Alcohol and Drug Abuse Patient Records regulations: The Federal rules restrict any use of the information to criminally investigate or prosecute any alcohol or drug abuse patient.[facility] HospitalIn the event this information is protected by the Federal Confidentiality of Alcohol and Drug Abuse Patient Records regulations: The Federal rules restrict any use of the information to criminally investigate or prosecute any alcohol or drug abuse patient.[facility] HospitalIn the event this information is protected by the Federal Confidentiality of Alcohol and Drug Abuse Patient Records regulations: The Federal rules restrict any use of the information to criminally investigate or prosecute any alcohol or drug abuse patient.[facility] HospitalIn the event this information is protected by the Federal Confidentiality of Alcohol and Drug Abuse Patient Records regulations: The Federal rules restrict any use of the information to criminally investigate or prosecute any alcohol or drug abuse patient.[facility] HospitalIn the event this information is protected by the Federal Confidentiality of Alcohol and Drug Abuse Patient Records regulations: The Federal rules restrict any use of the information to criminally investigate or prosecute any alcohol or drug abuse patient.[facility] HospitalIn the event this information is protected by the Federal Confidentiality of Alcohol and Drug Abuse Patient Records regulations: The Federal rules restrict any use of the information to criminally investigate or prosecute any alcohol or drug abuse patient.[facility] HospitalIn the event this information is protected by the Federal Confidentiality of Alcohol and Drug Abuse Patient Records regulations: The Federal rules restrict any use of the information to criminally investigate or prosecute any alcohol or drug abuse patient.[facility] HospitalIn the event this information is protected by the Federal Confidentiality of Alcohol and Drug Abuse Patient Records regulations: The Federal rules restrict any use of the information to criminally investigate or prosecute any alcohol or drug abuse patient.[facility] HospitalIn the event this information is protected by the Federal Confidentiality of Alcohol and Drug Abuse Patient Records regulations: The Federal rules restrict any use of the information to criminally investigate or prosecute any alcohol or drug abuse patient.[facility] HospitalIn the event this information is protected by the Federal Confidentiality of Alcohol and Drug Abuse Patient Records regulations: The Federal rules restrict any use of the information to criminally investigate or prosecute any alcohol or drug abuse patient.[facility] HospitalIn the event this information is protected by the Federal Confidentiality of Alcohol and Drug Abuse Patient Records regulations: The Federal rules restrict any use of the information to criminally investigate or prosecute any alcohol or drug abuse patient.[facility] HospitalIn the event this information is protected by the Federal Confidentiality of Alcohol and Drug Abuse Patient Records regulations: The Federal rules restrict any use of the information to criminally investigate or prosecute any alcohol or drug abuse patient.[facility] HospitalIn the event this information is protected by the Federal Confidentiality of Alcohol and Drug Abuse Patient Records regulations: The Federal rules restrict any use of the information to criminally investigate or prosecute any alcohol or drug abuse patient.[facility] HospitalIn the event this information is protected by the Federal Confidentiality of Alcohol and Drug Abuse Patient Records regulations: The Federal rules restrict any use of the information to criminally investigate or prosecute any alcohol or drug abuse patient.[facility] HospitalIn the event this information is protected by the Federal Confidentiality of Alcohol and Drug Abuse Patient Records regulations: The Federal rules restrict any use of the information to criminally investigate or prosecute any alcohol or drug abuse patient.[facility] HospitalIn the event this information is protected by the Federal Confidentiality of Alcohol and Drug Abuse Patient Records regulations: The Federal rules restrict any use of the information to criminally investigate or prosecute any alcohol or drug abuse patient.[facility] HospitalIn the event this information is protected by the Federal Confidentiality of Alcohol and Drug Abuse Patient Records regulations: The Federal rules restrict any use of the information to criminally investigate or prosecute any alcohol or drug abuse patient.[facility] HospitalIn the event this information is protected by the Federal Confidentiality of Alcohol and Drug Abuse Patient Records regulations: The Federal rules restrict any use of the information to criminally investigate or prosecute any alcohol or drug abuse patient.[facility] HospitalIn the event this information is protected by the Federal Confidentiality of Alcohol and Drug Abuse Patient Records regulations: The Federal rules restrict any use of the information to criminally investigate or prosecute any alcohol or drug abuse patient.[facility] HospitalIn the event this information is protected by the Federal Confidentiality of Alcohol and Drug Abuse Patient Records regulations: The Federal rules restrict any use of the information to criminally investigate or prosecute any alcohol or drug abuse patient.[facility] HospitalIn the event this information is protected by the Federal Confidentiality of Alcohol and Drug Abuse Patient Records regulations: The Federal rules restrict any use of the information to criminally investigate or prosecute any alcohol or drug abuse patient.[facility] HospitalIn the event this information is protected by the Federal Confidentiality of Alcohol and Drug Abuse Patient Records regulations: The Federal rules restrict any use of the information to criminally investigate or prosecute any alcohol or drug abuse patient.[facility] HospitalIn the event this information is protected by the Federal Confidentiality of Alcohol and Drug Abuse Patient Records regulations: The Federal rules restrict any use of the information to criminally investigate or prosecute any alcohol or drug abuse patient.[facility] HospitalIn the event this information is protected by the Federal Confidentiality of Alcohol and Drug Abuse Patient Records regulations: The Federal rules restrict any use of the information to criminally investigate or prosecute any alcohol or drug abuse patient.[facility] HospitalIn the event this information is protected by the Federal Confidentiality of Alcohol and Drug Abuse Patient Records regulations: The Federal rules restrict any use of the information to criminally investigate or prosecute any alcohol or drug abuse patient.[facility] HospitalIn the event this information is protected by the Federal Confidentiality of Alcohol and Drug Abuse Patient Records regulations: The Federal rules restrict any use of the information to criminally investigate or prosecute any alcohol or drug abuse patient.[facility] HospitalIn the event this information is protected by the Federal Confidentiality of Alcohol and Drug Abuse Patient Records regulations: The Federal rules restrict any use of the information to criminally investigate or prosecute any alcohol or drug abuse patient.[facility] HospitalIn the event this information is protected by the Federal Confidentiality of Alcohol and Drug Abuse Patient Records regulations: The Federal rules restrict any use of the information to criminally investigate or prosecute any alcohol or drug abuse patient.[facility] HospitalIn the event this information is protected by the Federal Confidentiality of Alcohol and Drug Abuse Patient Records regulations: The Federal rules restrict any use of the information to criminally investigate or prosecute any alcohol or drug abuse patient.[facility] HospitalIn the event this information is protected by the Federal Confidentiality of Alcohol and Drug Abuse Patient Records regulations: The Federal rules restrict any use of the information to criminally investigate or prosecute any alcohol or drug abuse patient.[facility] HospitalIn the event this information is protected by the Federal Confidentiality of Alcohol and Drug Abuse Patient Records regulations: The Federal rules restrict any use of the information to criminally investigate or prosecute any alcohol or drug abuse patient.[facility] HospitalIn the event this information is protected by the Federal Confidentiality of Alcohol and Drug Abuse Patient Records regulations: The Federal rules restrict any use of the information to criminally investigate or prosecute any alcohol or drug abuse patient.[facility] HospitalIn the event this information is protected by the Federal Confidentiality of Alcohol and Drug Abuse Patient Records regulations: The Federal rules restrict any use of the information to criminally investigate or prosecute any alcohol or drug abuse patient.[facility] HospitalIn the event this information is protected by the Federal Confidentiality of Alcohol and Drug Abuse Patient Records regulations: The Federal rules restrict any use of the information to criminally investigate or prosecute any alcohol or drug abuse patient.[facility] HospitalIn the event this information is protected by the Federal Confidentiality of Alcohol and Drug Abuse Patient Records regulations: The Federal rules restrict any use of the information to criminally investigate or prosecute any alcohol or drug abuse patient.[facility] HospitalIn the event this information is protected by the Federal Confidentiality of Alcohol and Drug Abuse Patient Records regulations: The Federal rules restrict any use of the information to criminally investigate or prosecute any alcohol or drug abuse patient.[facility] HospitalIn the event this information is protected by the Federal Confidentiality of Alcohol and Drug Abuse Patient Records regulations: The Federal rules restrict any use of the information to criminally investigate or prosecute any alcohol or drug abuse patient.[facility] HospitalIn the event this information is protected by the Federal Confidentiality of Alcohol and Drug Abuse Patient Records regulations: The Federal rules restrict any use of the information to criminally investigate or prosecute any alcohol or drug abuse patient.[facility] HospitalIn the event this information is protected by the Federal Confidentiality of Alcohol and Drug Abuse Patient Records regulations: The Federal rules restrict any use of the information to criminally investigate or prosecute any alcohol or drug abuse patient.[facility] HospitalIn the event this information is protected by the Federal Confidentiality of Alcohol and Drug Abuse Patient Records regulations: The Federal rules restrict any use of the information to criminally investigate or prosecute any alcohol or drug abuse patient.[facility] HospitalIn the event this information is protected by the Federal Confidentiality of Alcohol and Drug Abuse Patient Records regulations: The Federal rules restrict any use of the information to criminally investigate or prosecute any alcohol or drug abuse patient.[facility] HospitalIn the event this information is protected by the Federal Confidentiality of Alcohol and Drug Abuse Patient Records regulations: The Federal rules restrict any use of the information to criminally investigate or prosecute any alcohol or drug abuse patient.[facility] HospitalIn the event this information is protected by the Federal Confidentiality of Alcohol and Drug Abuse Patient Records regulations: The Federal rules restrict any use of the information to criminally investigate or prosecute any alcohol or drug abuse patient.[facility] HospitalIn the event this information is protected by the Federal Confidentiality of Alcohol and Drug Abuse Patient Records regulations: The Federal rules restrict any use of the information to criminally investigate or prosecute any alcohol or drug abuse patient.[facility] HospitalIn the event this information is protected by the Federal Confidentiality of Alcohol and Drug Abuse Patient Records regulations: The Federal rules restrict any use of the information to criminally investigate or prosecute any alcohol or drug abuse patient.[facility] HospitalIn the event this information is protected by the Federal Confidentiality of Alcohol and Drug Abuse Patient Records regulations: The Federal rules restrict any use of the information to criminally investigate or prosecute any alcohol or drug abuse patient.[facility] HospitalIn the event this information is protected by the Federal Confidentiality of Alcohol and Drug Abuse Patient Records regulations: The Federal rules restrict any use of the information to criminally investigate or prosecute any alcohol or drug abuse patient.[facility] HospitalIn the event this information is protected by the Federal Confidentiality of Alcohol and Drug Abuse Patient Records regulations: The Federal rules restrict any use of the information to criminally investigate or prosecute any alcohol or drug abuse patient.[facility] HospitalIn the event this information is protected by the Federal Confidentiality of Alcohol and Drug Abuse Patient Records regulations: The Federal rules restrict any use of the information to criminally investigate or prosecute any alcohol or drug abuse patient.[facility] HospitalIn the event this information is protected by the Federal Confidentiality of Alcohol and Drug Abuse Patient Records regulations: The Federal rules restrict any use of the information to criminally investigate or prosecute any alcohol or drug abuse patient.[facility] HospitalIn the event this information is protected by the Federal Confidentiality of Alcohol and Drug Abuse Patient Records regulations: The Federal rules restrict any use of the information to criminally investigate or prosecute any alcohol or drug abuse patient.[facility] HospitalIn the event this information is protected by the Federal Confidentiality of Alcohol and Drug Abuse Patient Records regulations: The Federal rules restrict any use of the information to criminally investigate or prosecute any alcohol or drug abuse patient.[facility] HospitalIn the event this information is protected by the Federal Confidentiality of Alcohol and Drug Abuse Patient Records regulations: The Federal rules restrict any use of the information to criminally investigate or prosecute any alcohol or drug abuse patient.[facility] HospitalIn the event this information is protected by the Federal Confidentiality of Alcohol and Drug Abuse Patient Records regulations: The Federal rules restrict any use of the information to criminally investigate or prosecute any alcohol or drug abuse patient.[facility] HospitalIn the event this information is protected by the Federal Confidentiality of Alcohol and Drug Abuse Patient Records regulations: The Federal rules restrict any use of the information to criminally investigate or prosecute any alcohol or drug abuse patient.[facility] HospitalIn the event this information is protected by the Federal Confidentiality of Alcohol and Drug Abuse Patient Records regulations: The Federal rules restrict any use of the information to criminally investigate or prosecute any alcohol or drug abuse patient.[facility] HospitalIn the event this information is protected by the Federal Confidentiality of Alcohol and Drug Abuse Patient Records regulations: The Federal rules restrict any use of the information to criminally investigate or prosecute any alcohol or drug abuse patient.[facility] HospitalIn the event this information is protected by the Federal Confidentiality of Alcohol and Drug Abuse Patient Records regulations: The Federal rules restrict any use of the information to criminally investigate or prosecute any alcohol or drug abuse patient.[facility] HospitalIn the event this information is protected by the Federal Confidentiality of Alcohol and Drug Abuse Patient Records regulations: The Federal rules restrict any use of the information to criminally investigate or prosecute any alcohol or drug abuse patient.[facility] HospitalIn the event this information is protected by the Federal Confidentiality of Alcohol and Drug Abuse Patient Records regulations: The Federal rules restrict any use of the information to criminally investigate or prosecute any alcohol or drug abuse patient.[facility] HospitalIn the event this information is protected by the Federal Confidentiality of Alcohol and Drug Abuse Patient Records regulations: The Federal rules restrict any use of the information to criminally investigate or prosecute any alcohol or drug abuse patient.[facility] HospitalIn the event this information is protected by the Federal Confidentiality of Alcohol and Drug Abuse Patient Records regulations: The Federal rules restrict any use of the information to criminally investigate or prosecute any alcohol or drug abuse patient.[facility] HospitalIn the event this information is protected by the Federal Confidentiality of Alcohol and Drug Abuse Patient Records regulations: The Federal rules restrict any use of the information to criminally investigate or prosecute any alcohol or drug abuse patient.[facility] HospitalIn the event this information is protected by the Federal Confidentiality of Alcohol and Drug Abuse Patient Records regulations: The Federal rules restrict any use of the information to criminally investigate or prosecute any alcohol or drug abuse patient.[facility] HospitalIn the event this information is protected by the Federal Confidentiality of Alcohol and Drug Abuse Patient Records regulations: The Federal rules restrict any use of the information to criminally investigate or prosecute any alcohol or drug abuse patient.[facility] HospitalIn the event this information is protected by the Federal Confidentiality of Alcohol and Drug Abuse Patient Records regulations: The Federal rules restrict any use of the information to criminally investigate or prosecute any alcohol or drug abuse patient.[facility] HospitalIn the event this information is protected by the Federal Confidentiality of Alcohol and Drug Abuse Patient Records regulations: The Federal rules restrict any use of the information to criminally investigate or prosecute any alcohol or drug abuse patient.[facility] HospitalIn the event this information is protected by the Federal Confidentiality of Alcohol and Drug Abuse Patient Records regulations: The Federal rules restrict any use of the information to criminally investigate or prosecute any alcohol or drug abuse patient.[facility] HospitalIn the event this information is protected by the Federal Confidentiality of Alcohol and Drug Abuse Patient Records regulations: The Federal rules restrict any use of the information to criminally investigate or prosecute any alcohol or drug abuse patient.[facility] HospitalIn the event this information is protected by the Federal Confidentiality of Alcohol and Drug Abuse Patient Records regulations: The Federal rules restrict any use of the information to criminally investigate or prosecute any alcohol or drug abuse patient.[facility] HospitalIn the event this information is protected by the Federal Confidentiality of Alcohol and Drug Abuse Patient Records regulations: The Federal rules restrict any use of the information to criminally investigate or prosecute any alcohol or drug abuse patient.[facility] HospitalIn the event this information is protected by the Federal Confidentiality of Alcohol and Drug Abuse Patient Records regulations: The Federal rules restrict any use of the information to criminally investigate or prosecute any alcohol or drug abuse patient.[facility] Scheduled Active and Recently Administ ered Medications (unrecognized section and content) Medication Order 04/16/2024 04/17/2024 04/18/2024 acyclovir (Zovirax) tablet 800 mg (COMPLETED) 800 mg, oral, Once, On 04/18/24 at 2030, For 1 dose, Coverage: Herpes simplex, Infection Site: Genital 2033 (Given - Provid er: Liz Rowe RN) cephalexin (Keflex) capsule 1,000 mg (COMPLETED) 1,000 mg, oral, Once, On 04/18/24 at 2030, For 1 dose, Suspected Indication (Select all that apply): Urinary Tract Infection, Type of Therapy: Definitive, No Cultures, Type of Urinary Tract Infection: Complicated, Indications: Urinary Tract Infection 2033 (Given - Provid er: Liz Rowe RN) Scheduled Medication Order 06/29/2024 06/30/2024 07/01/2024 acetaminophen (Tylenol) tablet 975 mg (COMPLETED) 975 mg, oral, Once, On Lori 07/01/24 at 2020, For 1 dose, If ordered PRN for pain, nurse is permitted to administer this medication for higher pain scores based on patient preference? Yes 2032 (Given - Provid er: Leonie De La Torre RN) Goals (unrecognized section and content) Goals may be documented in a n alternate sectionGoals may be documented in an alternate sectionGoals may be documented in an alternate section FOR RECORDS PERTAINING TO PATIENTS WHO ARE OR HAVE BEEN ENROLLED IN A CHEMICAL DEPENDENCY/SUBSTANCEABUSE PROGRAM, SOME INFORMATION MAY BE OMITTED. This clinical summary was aggregated from multiple sources. Caution should be exercised in using it in the provision of clinical care. This summary normalizes information from multiple sources, and as a consequence, information in this document may materially change the coding, format and clinical context of patient data. In addition, data may be omitted in some cases. CLINICAL DECISIONS SHOULD BE BASED ON THE PRIMARY CLINICAL RECORDS. [email or web address] provides no warranty or guarantee of the accuracy or completeness of information in this document.
[2024-12-07] MEDS: Insulin NPH Human 100 UNITS/ML PEN 20 UNITS SC (22:07)
[2024-12-08] VITALS (10 sets, daily range): BP systolic 100–146; BP diastolic 56–89; PULSE 83–103; RESP 16–18; TEMP 36.4–36.6; O2SAT 97–99
--- NOTE | 2024-12-08 01:56 | NURSING ---
at 2350 on 12/07/2024 epidural catheter removed, blue tip intact
--- NOTE | 2024-12-08 08:37 | PN.OBGYN_ITS ---
Subjective Subjective Patient seen at bedside. Denies any pain. Ambulating and voiding without difficulty. Lochia decreasing. with support. Objective Data Objective Data Vital Signs: Vital Signs Temp Pulse Resp BP Pulse Ox O2 Del Method 97.8 F 99 18 100/56 L 97 Room Air 12/08/24 02:35 12/08/24 02:35 12/08/24 02:35 12/08/24 02:35 12/08/24 02:35 12/08/24 02:35 Oxygen Delivery Method Room Air Weight: 211 lb 10.3 oz Body Mass Index (BMI) 38.7 Intake & Output: Intake and Output for Last 24 Hours 12/06/24 12/07/24 12/08/24 23:59 23:59 23:59 Intake Total 3027.30 / 3027.30 Output Total 750 / 750 500 / 500 Balance 2277.30 / 2277.30 -500 / -500 Lab / Micro Data Attestation: I reviewed the patient's lab results. 12/07/24 12:00 Labs: Laboratory Results - last 24 hr 12/07/24 12:00: WBC 9.0, RBC 4.25, Hgb 12.1, Hct 36.0 L, MCV 84.7, MCH 28.5, MCHC 33.6, RDW Std Deviation 41.1, RDW Coeff of Linda 13.4, Plt Count 230, MPV 9.7, Immature Gran % (Auto) 0.600, Neut % (Auto) 70.0, Lymph % (Auto) 22.0, [place] % (Auto) 6.0, Eos % (Auto) 1.0, Baso % (Auto) 0.4, Absolute Neuts (auto) 6.3, Absolute Lymphs (auto) 1.98, Nucleated RBC % 0, Urine Opiates Screen NEGATIVE, U Buprenorphine Qual NEGATIVE, Ur Oxycodone Screen NEGATIVE, Urine Methadone Screen NEGATIVE, Urine Fentanyl Screen NEGATIVE, Ur Barbiturates Screen NEGATIVE, Ur Phencyclidine Scrn NEGATIVE, Ur Amphetamines Screen NEGATIVE, U Benzodiazepines Scrn NEGATIVE, Urine Cocaine Screen NEGATIVE, U Cannabinoids Screen NEGATIVE, Ur Drug Screen Comment Cancelled, Syphilis Total Ab Nonreactive, Blood Type A POSITIVE, Antibody Screen NEGATIVE 12/07/24 12:44: POC Glucose 99 12/07/24 15:35: POC Glucose 73 L 12/07/24 19:25: POC Glucose 118 H 12/07/24 22:06: POC Glucose 143 H ROS Eyes Eyes: Denies blurry vision, change in vision or spots in vision ENT HEENT: Denies dizziness or headache(s) Cardiovascular Cardiovascular: Denies abdominal pain, chest pain or dyspnea Respiratory/Chest Respiratory/Chest: Denies cough, dyspnea, shortness of breath at rest or shortness of breath with exertion Gastrointestinal Gastrointestinal: Denies abdominal pain, diarrhea or vomiting Genitourinary Genitourinary: Denies change in urinary stream, difficulty urinating or dysuria Musculoskeletal Musculoskeletal: Reports none Integumentary Integumentary: Denies rash Neurologic Neurologic: Denies dizziness, headache(s), memory loss or weakness Physical Exam Const alert and no apparent distress General Appearance: cooperative and comfortable Exam Limitations: no limitations HEENT normocephalic Eyes General Eye: normal appearance of both eyes Neck full ROM General: normal visual inspection Chest Chest: symmetrical chest wall rise Resp normal respiratory effort and normal air movement Effort and Inspection: symmetric chest movement Auscultation: clear to auscultation bilaterally Cardio regular rate and regular rhythm GI normal to inspection, nondistended, normoactive bowel sounds Back/Spine normal ROM Extremity full ROM and no calf tenderness General Extremity: normal exam except as noted Skin no rashes or lesions noted Neuro oriented x3 Speech: speech normal Psych mental status grossly normal Thought Process: normal thought process Assessment & Plan (1) Obesity affecting : QUALIFIERS: Obesity type affecting : unspecified obesity Trimester: third trimester Qualified Code(s): O99.213 - Obesity complicating , third trimester (2) Bipolar 1 disorder: (3) Asthma: (4) Diabetes: (5) (spontaneous vaginal delivery): (6) Care and examination of lactating mother: PLAN: Plan PPD 1 support Blood glucose monitoring Dr. Julian to see and plan of care for insulin administration Anticipate discharge home tomorrow
--- NOTE | 2024-12-08 13:35 | CASEMGMT ---
[facility] Suicide Risk Assessment SUICIDAL IDEATION Ask questions 1 and 2.? If both are negative, proceed to ?Suicidal Behavior? section. If the answer to question 2 is ?yes?, ask questions 3, 4 and 5.? If the answer to question 1 and/or 2 is ?yes?, complete ?Intensity of Ideation? section below. Lifetime: Time He/She/They [place] Most Suicidal Past 1 month 1.? Wish to be Person endorses thoughts about a wish to be or not alive anymore or wish to fall asleep and not wake up. Have you wished you were or wished you could go to sleep and not wake up? If yes, describe: Yes?No X? Yes? No ? X? 2.? Non-Specific Active Suicidal Thoughts General non-specific thoughts of wanting to end one?s life/ by suicide (e.g., ?I?ve thought about killing myself?) without thoughts of ways to kill oneself/associated methods, intent, or plan during the assessment period. Have you actually had any thoughts of killing yourself? If yes, describe: ??? Yes ?No ?? X ? Yes? No ? X? 3.? Active Suicidal Ideation with Any Methods (Not Plan) without Intent to Act Person endorses thoughts of suicide and has thought of at least one method during the assessment period. This is different than a specific plan with time, place or method details worked out (e.g., thought of method to kill self but not a specific plan).? Includes person who would say, ?I thought about taking an overdose but I never made a specific plan as to when, where or how I would actually do it?and I would never go through with it.? Have you been thinking about how you might do this? If yes, describe: ?? ?Yes? No ? Yes? No ? 4.? Active Suicidal Ideation with Some Intent to Act, without Specific Plan Active suicidal thoughts of killing oneself and person reports having some intent to act on such thoughts, as opposed to ?I have the thoughts but I definitely will not do anything about them.? Have you had these thoughts and had some intention of acting on them? If yes, describe: ?? Yes? No ? Yes? No ? 5.? Active Suicidal Ideation with Specific Plan and Intent Thoughts of killing oneself with details of plan fully or partially worked out and person has some intent to carry it out. Have you started to work out or worked out the details of how to kill yourself? Did you intend to carry out this plan? If yes, describe: ???Yes?No ? Yes? No ? INTENSITY OF IDEATION The following features should be rated with respect to the most severe type of ideation (i.e., 1-5 from above, with 1 being the least severe and 5 being the most severe). Ask about time he/she/they were feeling the most suicidal. ? Lifetime - Most Severe Ideation:?Type # (1-5)?Description of? Ideation Recent - Most Severe Ideation:?Type # (1-5)?Description of? Ideation Most Severe Most Severe Frequency How many times have you had these thoughts? (1) Less than once a week??? (2) Once a week?? (3)? 2-5 times in week??? (4) Daily or almost daily??? (5) Many times each day ____ ____ Duration When you have the thoughts how long do they last? (1) Fleeting - few seconds or minutes? (4) 4-8 hours/most of day (2) Less than 1 hour/some of the time? (5) More than 8 hours/persistent or continuous (3) 1-4 hours/a lot of time ____ ____ Controllability Could/can you stop thinking about killing yourself or wanting to if you want to? (1) Easily able to control thoughts? (4) Can control thoughts with a lot of difficulty (2) Can control thoughts with little difficulty? (5) Unable to control thoughts (3) Can control thoughts with some difficulty? (0) Does not attempt to control thoughts ____ ____ Deterrents Are there things - anyone or anything (e.g., family, episcopalian, pain of ) - that stopped you from wanting to or acting on thoughts of suicide? (1) Deterrents definitely stopped you from attempting suicide? (4) Deterrents most likely did not stop you (2) Deterrents probably stopped you? (5) Deterrents definitely did not stop you (3) Uncertain that deterrents stopped you?(0) Does not apply ____ ____ Reasons for Ideation What sort of reasons did you have for thinking about wanting to or killing yourself?? Was it to end the pain or stop the way you were feeling (in other words you couldn?t go on living with this pain or how you were feeling) or was it to get attention, revenge or a reaction from others? Or both? (1) Completely to get attention, revenge or a reaction from others? (4) Mostly to end or stop the pain (you couldn?t go on (2) Mostly to get attention, revenge or a reaction from others? living with the pain or how you were feeling) (3) Equally to get attention, revenge or a reaction from others? (5) Completely to end or stop the pain (you couldn?t go on ? and to end/stop the pain? living with the pain or? how you were feeling) ? (0) ?Does not apply ____ ____ SUICIDAL BEHAVIOR (Check all that apply, so long as these are separate events; must ask about all types) Lifetime Past 3 months Actual Attempt: A potentially self-injurious act undertaken with at least some wish to , as a result of act. Behavior was in part thought of as method to kill oneself. Intent does not have to be 100%.? If there is any intent/desire to associated with the act, then it can be considered an actual suicide attempt. There does not have to be any injury or harm, just the potential for injury or harm. If person pulls trigger while gun is in mouth but gun is broken so no injury results, this is considered an attempt.? Inferring Intent: Even if an individual denies intent/wish to , it may be inferred clinically from the behavior or circumstances. For example, a highly lethal act that is clearly not an accident so no other intent but suicide can be inferred (e.g., gunshot to head, jumping from window of a high floor/story). Also, if someone denies intent to , but they thought that what they did could be lethal, intent may be inferred. Have you made a suicide attempt? Have you done anything to harm yourself? Have you done anything dangerous where you could have ? What did you do? Did you as a way to end your life? Did you want to (even a little) when you ? Were you trying to end your life when you ? Or Did you think it was possible you could have from ? Or did you do it purely for other reasons / without ANY intention of killing yourself (like to relieve stress, feel better, get sympathy, or get something else to happen)? ?(Self-Injurious Behavior without suicidal intent) If yes, describe: Has person engaged in Non-Suicidal Self-Injurious Behavior? Yes? No X? Total # of Attempts ___2___ Yes? No x? Yes? No ? X? Total # of Attempts __0____ Yes? No ?? x ? Interrupted Attempt:? When person is interrupted (by an outside circumstance) from starting the potentially self-injurious act (if not for that, actual attempt would have occurred). Overdose: Person has pills in hand but is stopped from ingesting.? Once they ingest any pills, this becomes an attempt rather than an interrupted attempt. Shooting: Person has gun pointed toward self, gun is taken away by someone else, or is somehow prevented from pulling trigger. Once they pull the trigger, even if the gun fails to fire, it is an attempt. Jumping: Person is poised to jump, is grabbed and taken down from ledge. Hanging: Person has noose around neck but has not yet started to hang - is stopped from doing so. Has there been a time when you started to do something to end your life but someone or something stopped you before you actually did anything? If yes, describe: Yes? No ??? x? Total # of interrupted 0 Yes? No ??? x? Total # of interrupted 0 Aborted or Self-Interrupted Attempt:? When person begins to take steps toward making a suicide attempt but stops themselves before they actually have engaged in any self-destructive behavior. Examples are similar to interrupted attempts, except that the individual stops him/herself, instead of being stopped by something else. Has there been a time when you started to do something to try to end your life but you stopped yourself before you actually did anything? If yes, describe: Yes? No ??? x? Total # of aborted or self-interrupted 0_ Yes? No ??? x? Total # of aborted or self-interrupted ____0__ Preparatory Acts or Behavior: Acts or preparation towards imminently making a suicide attempt. This can include anything beyond a verbalization or thought, such as assembling a specific method (e.g., buying pills, purchasing a gun) or preparing for one?s by suicide (e.g., giving things away, writing a suicide note). Have you taken any steps towards making a suicide attempt or preparing to kill yourself (such as collecting pills, getting a gun, giving valuables away or writing a suicide note)? If yes, describe: Yes? Nx? Total # of preparatory acts ___1___ Yes? No ??? x? Total # of preparatory acts ____0__ Most Recent Attempt Date: Most Lethal? Attempt Date: 2018 Initial/First Attempt Date: 2016 Actual Lethality/Medical Damage:? 0.? No physical damage or very minor physical damage (e.g., surface scratches). 1.? Minor physical damage (e.g., lethargic speech; first-degree carranza; mild bleeding; sprains). 2.? Moderate physical damage; medical attention needed (e.g., conscious but sleepy, somewhat responsive; second-degree carranza; bleeding of major vessel). 3.? Moderately severe physical damage; medical hospitalization and likely intensive care required (e.g., comatose with reflexes intact; third-degree carranza less than 20% of body; extensive blood loss but can recover; major fractures). 4.? Severe physical damage; medical hospitalization with intensive care required (e.g., comatose without reflexes; third-degree carranza over 20% of body; extensive blood loss with unstable vital signs; major damage to a vital area). 5.? Enter Code Same as most lethal Enter Code 2 Enter Code 1 Potential Lethality: Only Answer if Actual Lethality=0 Likely lethality of actual attempt if no medical damage (the following examples, while having no actual medical damage, had potential for very serious lethality: put gun in mouth and pulled the trigger but gun fails to fire so no medical damage; laying on train tracks with oncoming train but pulled away before run over). 0 = Behavior not likely to result in injury 1 = Behavior likely to result in injury but not likely to cause 2 = Behavior likely to result in despite available medical care Enter Code Enter Code Enter Code
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
[2024-12-08] MEDS: Insulin NPH Human 100 UNITS/ML PEN 20 UNITS SC (22:21)
[2024-12-09 01:30] VITALS: PULSE 89; O2SAT 99
[2024-12-09 01:31] VITALS: BP 131/85; PULSE 90; PULSE 92; RESP 16; TEMP 36.4; O2SAT 98
[2024-12-09 07:35] VITALS: BP 136/80; PULSE 84; RESP 16; TEMP 35.8; O2SAT 98
[2024-12-09 07:37] VITALS: BP 136/80; PULSE 84
--- NOTE | 2024-12-09 08:45 | PCM.PN.OB ---
Subjective Subjective Doing well. Ambulating and voiding without difficulty. Mild lochia. Breast feeding. Blood sugars good. Has a insulin plan with endocrine. Objective Data Objective Data Vital Signs: Vital Signs Temp Pulse Resp BP Pulse Ox O2 Del Method O2 Flow Rate 97.6 F L 84 16 136/80 H 98 Room Air 98 12/09/24 01:31 12/09/24 07:37 12/09/24 01:31 12/09/24 07:37 12/09/24 01:31 12/09/24 01:31 12/08/24 20:31 Oxygen Flow Rate (L/min) 98 Oxygen Delivery Method Room Air Weight: 96 kg Body Mass Index (BMI) 38.7 Intake & Output: Intake and Output for Last 24 Hours 12/07/24 12/08/24 12/09/24 23:59 23:59 23:59 Intake Total 3027.30 / 3027.30 Output Total 750 / 750 500 / 500 Balance 2277.30 / 2277.30 -500 / -500 Lab / Micro Data 12/07/24 12:00 Labs: Laboratory Results - last 24 hr 12/08/24 09:24: POC Glucose 132 H 12/08/24 12:45: POC Glucose 104 12/08/24 17:06: POC Glucose 93 12/08/24 22:20: POC Glucose 125 H 12/09/24 00:21: POC Glucose 101 ROS Constitutional Constitutional: Denies headache(s) Cardiovascular Cardiovascular: Denies chest pain or dyspnea Gastrointestinal Gastrointestinal: Denies nausea or vomiting Genitourinary Genitourinary: Denies dysuria Physical Exam Const alert, oriented x3 and no apparent distress General Appearance: cooperative and comfortable Eyes PERRL and EOMs intact bilaterally Resp normal respiratory effort GI soft to palpation and non-tender Uterus Palpation: uterus fundus firm ( below umbilicus) Extremity normal to inspection and full ROM Neuro oriented x3 and CN's II-XII intact bilaterally Psych mental status grossly normal Assessment & Plan (1) (spontaneous vaginal delivery): (2) Type 2 diabetes mellitus affecting , antepartum: COMMENT: @ 38&3 (3) Bipolar 1 disorder: PLAN: Plan Discharge home
--- NOTE | 2024-12-09 08:46 | PCM.DC.SUM ---
Providers Date of Admission: 12/07/24 Date of Discharge: 12/09/24 Primary Care Physician: Dr. Jamari Byrne MD Reason For Visit: VAG Diagnosis Discharge Diagnosis (1) (spontaneous vaginal delivery): Status: Acute Code(s): O80 - Encounter for full-term uncomplicated delivery (2) Type 2 diabetes mellitus affecting , antepartum: Status: Acute Code(s): O24.119 - Pre-existing type 2 diabetes mellitus, in , unspecified trimester (3) Bipolar 1 disorder: Status: Acute Code(s): F31.9 - Bipolar disorder, unspecified Plan Discharge home Medications at Discharge Home Medications buspirone 15 mg tablet 15 mg PO QDAY anxiety 02/26/24 insulin lispro 100 unit/mL subcutaneous pen (Humalog KwikPen (U-100) Insulin) 23 unit subcut .COMPLEX pregestational diabetes 02/26/24 HumuLIN N NPH Insulin KwikPen 90 units subcut QHS type II diabetes 10/16/24 acyclovir 400 mg tablet 400 mg PO BID HSV 11/15/24 albuterol sulfate 90 mcg/actuation aerosol inhaler 1 - 2 puff inhalation PRN PRN shortness of breath or wheezing 11/15/24 fluoxetine 20 mg capsule 20 mg PO DAILY anxiety 11/15/24 Hospital Course Operations None Procedures None Summary of Care Provided Minutes Spent on Discharge: 20 Hospital Course: . Insulin DM. Controlled. Bottefeeding. Weight / BMI Weight Weight: 96 kg Body Mass Index (BMI) 38.7 ABG / Lab / Microbiology Data 12/07/24 12:00 Laboratory: Laboratory Results - last 24 hr 12/08/24 22:20: POC Glucose 125 H 12/09/24 00:21: POC Glucose 101 12/09/24 08:30: POC Glucose 97 D/C Instructions May resume sexual activity in: 6 weeks DC O2, CPAP, BIPAP Needs Home O2 Discharge instructions: No Please Follow Up With: Piper Julian MD When: Follow up with our office in 1-2 and 6 weeks or as needed. [phone] Meaningful Use Info Meaningful Use Meaningful Use Diagnoses (Choose all that apply): None applicable Ischemic Stroke Statin Dosing Therapy Reference: STATIN DOSE THERAPY REFERENCE: * Patients > 75 years receive moderate or high dose statin therapy. * Patients 75 years or YOUNGER should receive HIGH intensity statin dose unless contraindicated. You will be required to document reason for non-treatment if statin daily dose does not meet guidelines. HIGH DOSE STATIN THERAPY DAILY Atorvastatin > than or = to 40 mg Rosuvastatin > than or = to 20 mg Amlodipine + Atorvastatin > than or = to 2.5/40 mg Ezetimibe + Simvastatin 10/80 mg Simvastatin 80mg Discharge Plan Admission Admit Date/Time: 12/07/24 11:00 Primary Reason for Your Visit: labor Attending Provider: William Radford Primary Care Provider: Jamari Byrne Instructions Patient Instructions: After a Vaginal Delivery (WP) Discharge Orders/Prescriptions Prescriptions: Continued insulin lispro [Humalog KwikPen Insulin] 100 unit/mL insulin pen 23 unit subcut .COMPLEX Rx Instructions: 23 units subcutaneously at breakfast and lunch; 26 units at dinner buspirone 15 mg tablet 15 mg PO QDAY albuterol sulfate 90 mcg/actuation HFA aerosol inhaler 1 - 2 puff inhalation PRN PRN (Reason: shortness of breath or wheezing) fluoxetine 20 mg capsule 20 mg PO DAILY acyclovir 400 mg tablet 400 mg PO BID HumuLIN N NPH Insulin KwikPen 90 units subcut QHS Rx Instructions: 90 units; Discontinued aspirin [Adult Aspirin Regimen] 81 mg tablet,delayed release (DR/EC) 81 mg PO DAILY Referrals / Follow Up: Jamari Byrne MD [Primary Care Provider] - Disposition Disposition (needs filled in before D/C Order can be placed): Home, Self Care
--- NOTE | 2024-12-09 10:19 | CASEMGMT ---
Referral sent to [facility] as previously discussed and agreed upon with patient (MOB). No other needs addressed at this time. Seng Moore, CONVERTING SUPERVISOR, PRIVATE BRANCH EXCHANGE REPAIRER
--- NOTE | 2024-12-16 16:05 | NURSING ---
Follow up phone call made. Patient states that she is doing ok. States her bleeding is getting better. States that she has been having a headache and not a good appetite. With patients history and symptoms that she is having, instructed her to call [facility] when we hang up to be seen, patient states understanding. States that the is doing well with formula feeding but does have diaper rash that she was seen by PCP for today.
== END 2024-12-09 12:10 | disposition home or self-care (01) | DRG 807 ==
LOC: WPOUT 11:20 → WP 11:20
PROVIDERS: Admitting Provider Obstetrics & Gynecology; PCP Family Medicine; Referring Provider Obstetrics & Gynecology; Visit Provider Obstetrics & Gynecology
DX: O24.12 Pre-existing type 2 diabetes mellitus, in childbirth (principal); Z37.0 Single live birth; O99.344 Other mental disorders complicating childbirth; E11.40 Type 2 diabetes mellitus with diabetic neuropathy, unspecified; F31.9 Bipolar disorder, unspecified; O99.214 Obesity complicating childbirth; F17.210 Nicotine dependence, cigarettes, uncomplicated; Z79.4 Long term (current) use of insulin; O99.284 Endocrine, nutritional and metabolic diseases complicating childbirth; O99.334 Smoking (tobacco) complicating childbirth; O99.824 Streptococcus B carrier state complicating childbirth; Z3A.38 38 weeks gestation of pregnancy; Z79.899 Other long term (current) drug therapy; Z86.19 Personal history of other infectious and parasitic diseases
CPT/HCPCS: 59025; 59050; 80307; 82962; 85025; 86780; 86850; 86900; 86901; 99221; G0378

== ENCOUNTER 2024-12-16 19:10 | Outpatient (CLI) | payer MEDICARE, MEDICAID, SELFPAY ==
[2024-12-16 20:00] VITALS: BP 118/76; PULSE 80; RESP 18; TEMP 36.6; O2SAT 98
[2024-12-16 20:11] VITALS: BP 116/63; PULSE 77
[2024-12-16 20:12] VITALS: BMI 79.3
[2024-12-16 20:15] VITALS: BP 116/63
--- NOTE | 2024-12-16 20:23 | OB.TRI.NOTE ---
HPI - General HPI Narrative AUTUMN KING, is a 29 F who is 10 days post that presents to triage with headache, swelling, nausea and vomiting and to r/o pre e. Maternal Data Information ADA Calculator Estimated Delivery Date Method Current WG Current Estimate 12/18/24 Manual 39w 5d PFSH PFS Medical History (Updated 12/16/24 @ 20:43 by Mariajose Nickerson CNM) Seizures Asthma Osteoarthritis Diabetes Home Medications ?Medication ?Instructions ?Recorded ?Last Taken ?Type buspirone 15 mg tablet 15 mg PO QDAY anxiety 02/26/24 12/16/24 History HumuLIN N NPH Insulin KwikPen 90 units subcut QHS type II 10/16/24 12/15/24 History diabetes albuterol sulfate 90 mcg/actuation 1 - 2 puff inhalation PRN PRN 11/15/24 11/01/24 15:57 History aerosol inhaler shortness of breath or wheezing fluoxetine 20 mg capsule 20 mg PO DAILY anxiety 11/15/24 12/16/24 History insulin lispro 100 unit/mL 8 unit subcut TID 12/16/24 Unknown History subcutaneous pen (Humalog KwikPen (U-100) Insulin) Allergy/AdvReac Type Severity Reaction Status Date / Time aripiprazole (From Abilify) AdvReac Other Verified 12/16/24 20:13 metoclopramide (From Reglan) AdvReac Other Verified 12/16/24 20:13 ondansetron (From Zofran) AdvReac Vomiting Verified 12/16/24 20:13 quetiapine (From Seroquel) AdvReac Other Verified 12/16/24 20:13 sertraline (From Zoloft) AdvReac Other Verified 12/16/24 20:13 Family History Other Heart disease Hyperlipemia Surgical History (Updated 12/16/24 @ 20:28 by Mariajose Nickerson CNM) History of dilation and curettage History of oral surgery History of cholecystectomy Social History Smoking Status: Current every day smoker tobacco type: cigarettes alcohol intake: never substance use type: does not use History Elective abortions Hx Para 1 Spontaneous abortions Hx # Term Pregnancies Ectopic pregnancies Hx # Pregnancies Multiple births # of living children ROS Eyes Eyes: Denies blurry vision Cardiovascular Cardiovascular: Reports none; Denies chest pain at rest, chest pain with activity or dizziness Respiratory/Chest Respiratory/Chest: Denies cough or dyspnea Gastrointestinal Gastrointestinal: Reports none and other; Denies diarrhea or vomiting Genitourinary Genitourinary: Denies dysuria Musculoskeletal Musculoskeletal: Reports none Integumentary Integumentary: Reports none; Denies rash Neurologic Neurologic: Denies other visual disturbances Physical Exam Const alert and no apparent distress General Appearance: cooperative Orientation / Consciousness: awake Exam Limitations: no limitations HEENT normocephalic Eyes General Eye: normal appearance of both eyes Neck full ROM Chest inspection of chest normal Resp normal respiratory effort and normal air movement Effort and Inspection: symmetric chest movement Auscultation: clear to auscultation bilaterally Cardio regular rate GI soft to palpation, non-tender and non-distended Inspection: and other Back/Spine normal ROM Extremity full ROM, normal capillary refill and no calf tenderness Skin no rashes or lesions noted Neuro oriented x3 and CN's II-XII intact bilaterally Psych mental status grossly normal Assessment & Plan (1) Bipolar 1 disorder: (2) Asthma: (3) Headache: (4) Status post vaginal delivery: (5) Type 2 diabetes mellitus: (6) Nausea & vomiting: PLAN: Plan Blood pressures 106-118/60-70's Denies current headache No N/V today Thinks she just has not eaten enough today PIH labs normal Increase hydration- dinner offered to patient D/C home with follow up in office for PP visit
[2024-12-16 20:25] VITALS: BP 106/65; PULSE 76
[2024-12-16 20:26] VITALS: BP 106/65
--- NOTE | 2024-12-16 20:26 | NURSING ---
Patient came in for intermittent nausea, vomiting, and headaches that resolve with Tylenol since Friday. She initially was concerned the food she ate caused it Friday. After speaking with the call line she was instructed to come in to be evaluated. Bilateral ankles with 1+ pitting edema, no clonus, and +1 reflexes. Denies headache or nausea at this time. Bedside blood sugar checked per RN [id number] after stating she didn't feel good. PreE labs collected and sent. C Plotts aware of patient arrival. Serial BP in progress. Significant other at bedside with infant. Patient calm and cooperative. Alert and oriented x3.
[2024-12-16 20:28] LABS: Hematocrit 38.6 % (37-47); Hemoglobin 12.9 g/dL (12.0-15.0); Mean Corp Hgb Conc 33.4 g/dL (32-36); Mean Corpuscular Volume 85.0 fL (81-99); Mean Platelet Vol. 9.3 fl (6.2-12.0); Platelet Count 378 K/mm3 (150-450); RBC Distribution Width CV 12.7 % (11.6-14.6); RBC Distribution Width SD 38.8 fl (35.1-43.9); Red Blood Count 4.54 M/mm3 (4.2-5.4); White Blood Count 8.3 K/mm3 (4.4-11.0)
[2024-12-16 20:40] VITALS: BP 115/70; PULSE 75
[2024-12-16 21:15] LABS: AST(SGOT) 17 U/L (<=31); Alanine Aminotransfer ALT/SGPT 24 U/L (<=34); Estimated Creatinine Clearance 250.08 ml/min (50-250); Uric Acid 5.3 mg/dL (2.6-6.0)
== END 2024-12-16 21:30 | disposition home or self-care (01) ==
LOC: WPOUT 19:14 → WP 19:57
PROVIDERS: PCP Family Medicine; Referring Provider Advanced Practice Midwife; Visit Provider Advanced Practice Midwife
DX: O99.893 Other specified diseases and conditions complicating puerperium (principal); Z79.4 Long term (current) use of insulin; R11.2 Nausea with vomiting, unspecified; R51.9 Headache, unspecified; O24.13 Pre-existing type 2 diabetes mellitus, in the puerperium; O99.335 Smoking (tobacco) complicating the puerperium; F17.210 Nicotine dependence, cigarettes, uncomplicated
CPT/HCPCS: 82565; 82962; 84450; 84460; 84550; 85027; 99221; G0378

== ENCOUNTER 2025-01-20 22:23 | Emergency (ER) | payer MEDICAID, SELFPAY ==
[2025-01-20 22:32] VITALS: BP 145/92; PULSE 133; RESP 24; TEMP 36.4; O2SAT 100; BMI 37.8
[2025-01-20 23:05] LABS: Hematocrit 38.4 % (37-47); Hemoglobin 12.9 g/dL (12.0-15.0); Immature Granulocytes Count 0.020 X10^3/uL (0.0-0.0); Mean Corp Hgb Conc 33.6 g/dL (32-36); Mean Corpuscular Volume 82.8 fL (81-99); Mean Platelet Vol. 9.6 fl (6.2-12.0); NRBC Flagged by Analyzer 0 % (0-5); Platelet Count 289 K/mm3 (150-450); RBC Distribution Width CV 12.5 % (11.6-14.6); RBC Distribution Width SD 37.6 fl (35.1-43.9); Red Blood Count 4.64 M/mm3 (4.2-5.4); White Blood Count 7.4 K/mm3 (4.4-11.0)
[2025-01-20] MEDS: 0.9% Normal Saline (1000mL) 1,000 ML 999 ML IV (23:10)
[2025-01-20 23:22] LABS: Mucous, Urine 0 SEEN /hpf (<or=2+); Red Blood Cells-Urine 0 SEEN /hpf (0-5)
--- OUTSIDE RECORDS SUMMARY | 2025-01-20 23:25 | XMS RPT_ITS | CCD ---
Author Organization [facility] Care Team Providers Care Ax Survey Worker Name Role Phone HERNANDEZLESLIEJOSIE Unavailable Unavailable ARMINDA, VERONA Unavailable Unavailable ARMINDA, VERONA Unavailable Unavailable RAPHAEL CABEZAS Unavailable Unavailable ARMINDA, VERONA Unavailable Unavailable HERNANDEZGEORGETTEE Unavailable Unavailable ARMINDA, VERONA Unavailable Unavailable JAMA, JAMILA Unavailable Unavailable LODWICK, KADE L Unavailable Unavailable Physician, No PCP Unavailable Unavailable Physician, PCP Unknown Unavailable Unavailab CHRISTOPHER Belcher Unavailable Unavailable MILLY SINCLAIR Unavailable Unavailable SARAI PAULA Unavailable Unavailable HAWK, FABIO C Unavailable Unavailable HAWK, FABIO C Unavailable Unavailable HAWK, FABIO C Unavailable Unavailable CASTRO VAUGHN CNP Unavailable Unavailable PROVIDER, UNKNOWN Unavailable Unavailable PROVIDER, UNKNOWN Unavailable Unavailable MELVER, KALYANI Unavailable Unavailable GARCIAS, EDROY L Unavailable Unavailable GARCIAS, EDROY L Unavailable Unavailable MELVER, KALYANI Unavailable Unavailable MELVER, KALYANI Unavailable Unavailable GARCIAS, EDROY L Unavailable Unavailable Pat, Kelsey Queenie Admitting Unavailable Pat Kelsey Queenie Attending Unavailable Elei Hernadez Admitting Unavailabl e Elie Hernadez Attending Unavailabl e Arminda, Verona Primary Care Provider Arminda, Verona Primary Care Provider [phone] Alexey, Juno Unavailable Unavailable Unavailable Unavailable Unavailable Real Ngn Unavailable Unavailable Alexey, Juno Unavailable Unavailable Real Ngn L Unavailable Unavailable MATY CHAVEZ Admitting Unavailable MATY CHAVEZ Referring Unavailable ARMINDA, VERONA Primary Care Unavailable Arminda, Verona Primary Care Provider ARMINDA, VERONA Primary Care Unavailable SRINI MEDINA Attending Unavailable ARMINDA, VERONA Primary Care Unavailable OBERHAUSER, RICH Referring Unavailable SRINI MEDINA Attending Unavailable ARMINDA, VERONA Primary Care Unavailable CALISTA ROCHA Attending Unavailabl e SRINI MEDINA Attending Unavailable ARMINDA, VERONA Primary Care Unavailable SRINI MEDINA Admitting Unavailable ARMINDA, VERONA Primary Care Unavailable SRINI MEDINA Attending Unavailable SRINI MEDINA Referring Unavailable ARMINDA, VERONA Primary Care Unavailable MATY CHAVEZ Attending Unavailable MATY CHAVEZ Referring Unavailable Arminda, Verona Primary Care Provider Unavailabl e Oberhauser, Rich L Unavailable Epifanio Sorensen Unavailable Unavailable Oberhauser, Rich L Unavailable Unavailable Unavailable Unavailable Unavailable KATIANA ROCHA Referring Unavailable KATIANA ROCHA Primary Care Unavailable Jamari Byrne Unavailable Unavailable Unavailable Unavailable Unavailable Unavailable Unavailable Marshall Brown MD Primary Care Provider MARSHALL BROWN Primary Care Unavailable LAZARA JON Attending Unavailable MD JEANIE SUTTON Attending Unava ilMD JEANIE [place] Referring Unava ilable Chavez, Dr. Jamari Kearns Primary Care Unavailab le StentElie sanders Attending Unavailable Stentz, Elie Referring Unavailable Chavez, Dr. Jamari Kearns Primary Care Unavailab le Chavez, Dr. Jamari Kearns Primary Care Unavailab le Chavez, Dr. Jamari Kearns Attending Unavailab le Chavez, Dr. Jamari Kearns Referring Unavailab le Chavez, Dr. Jamari Kearns Attending Unavailab le Chavez, Dr. Jamari Kearns Referring Unavailab le Chavez, Dr. Jamari Kearns Primary Care Unavailab MD JEANIE Cee Attending Unava ilable MD JEANIE SUTTON Referring Unava ilable Chavez, Dr. Jamari Kearns Primary Care Unavailab MD JEANIE Cee Attending Unava ilable Chavez, Dr. Jamari Kearns Primary Care Unavailab le Chavez MD, Jamari L Primary Care Provider Jamari Byrne MD Unavailable Jamari Byrne MD Primary Care Provider Jamari Byrne MD Primary Care Provider MILLY JI DO Admitting Unavailable MILLY JI DO Attending Unavailable DIDMILLY BELTRAN DO Primary Care Unavailable CHAVEZ, JAMARI L Consulting Unavailable CHAVEZ, JAMARI L Referring Unavailable PROVIDER, UNKNOWN Consulting Unavailable MILLY JI DO Admitting Unavailable MILLY JI DO Attending Unavailable ELIELADALCA L Referring Unavailable MILLY JI DO Primary Care [...] Unavailable CHAVEZ, JAMARI L Primary Care Unavailable Dr. Jamari Byrne MD Primary Care Provider Leonie Waldron CNM Attending Provider Leonie Waldron CNM Referring Provider POOJA LATHAM Referring Unavailable CHAVEZ, JAMARI L Primary Care Unavailable PAMELA HASKINS Attending Unavailable POOJA LATHAM Referring Unavailable CHAVEZ, JAMARI L Primary Care Unavailable CHAVEZ, JAMARI L Primary Care Unavailable PAMELA HASKINS Attending Unavailable CHAVEZ, JAMARI L Primary Care Unavailable Mariajose Nickerson CNM Attending Provider [phone] CHAVEZ, JAMARI L Primary Care Unavailable WILLIAM GRAMAJO Referring Unavailable Jorge SHAFER, Dr. Dukes Attending Provid er Dr. Whit Patel MD Referring Provid er Avila SHAFER, Dr. Thomas Admit Provider Avila SHAFER, Dr. Thomas Attending Provider Dr. William Gramajo MD Referring Provider Mariajose Nickerson CNM Referring Provider CHAVEZ, JAMARI L Primary Care Unavailable LEONIE WALDRON Attending Unavailable CHAVEZ, JAMARI L Primary Care Unavailable SELF Referring Unavailable POOJA LATHAM Attending Unavailable CHAVEZ, JAMARI L Primary Care Unavailable KELSY GUILLERMO Attending Unavailable WILLIAM GRAMAJO Referring Unavailable CHAVEZ, JAMARI L Primary Care Unavailable ZAYDA PARKER Attending Unavailable CHAVEZ, JAMAIR L Primary Care Unavailable KESHAV LOVING Attending Unavailable CHAVEZ, JAMARI L Primary Care Unavailable ELIEL, PIPER L Referring Unavailable KRYS KULKARNI Attending Unavailable CHAVEZ, JAMARI L Primary Care Unavailable KELSY GUILLERMO Attending Unavailable ELIEL, PIPER L Referring Unavailable CHAVEZ, JAMARI L Primary Care Unavailable CHAVEZ, JAMARI L Primary Care Unavailable KELSY GUILLERMO Attending Unavailable CHAVEZ, JAMARI L Primary Care Unavailable WILLIAM GRAMAJO Attending Unavailable CHAVEZ, JAMARI L Primary Care Unavailable WILLIAM GRAMAJO Referring Unavailable WILLIAM GRAMAJO Attending Unavailable ELIEL, PIPER L Referring Unavailable CHAVEZ, JAMARI L Primary Care Unavailable CHAVEZ, JAMARI L Primary Care Unavailable KESHAV LOVING Attending Unavailable CHAVEZ, JAMARI L Primary Care Unavailable POOJA LATHAM Referring Unavailable CHAVEZ, JAMARI L Primary Care Unavailable CARRIE LARSEN Attending Unavailable CHAVEZ, JAMARI L Primary Care Unavailable HAURY, ZAYDA Referring Unavailable CHAVEZ, JAMARI L Primary Care Unavailable HAURY, ZAYDA Referring Unavailable WILLIAM GRAMAJO Attending Unavailable CHAVEZ, JAMARI L Primary Care Unavailable WILLIAM GRAMAJO Attending Unavailable CHAVEZ, JAMARI L Primary Care Unavailable ELIEL, PIPER L Referring Unavailable CHAVEZ, JAMARI L Primary Care Unavailable AVILA, KARMON Referring Unavailable CHAVEZ, JAMARI L Primary Care Unavailable KELSY GUILLERMO Attending Unavailable CHAVEZ, JAMARI L Primary Care Unavailable AVILA, KARMON Referring Unavailable CHAVEZ, JAMARI L Primary Care Unavailable HAURY, ZAYDA Referring Unavailable CHAVEZ, JAMARI L Primary Care Unavailable HAURY, ZAYDA Referring Unavailable POOJA LATHAM Attending Unavailable CHAVEZ, JAMARI L Primary Care Unavailable ZAYDA PARKER Referring Unavailable ELIEL, PIPER L Referring Unavailable CHAVEZ, JAMARI L Primary Care Unavailable ELIEL, PIPER L Referring Unavailable CHAVEZ, JAMARI L Primary Care Unavailable CHAVEZ, JAMARI L Primary Care Unavailable KESHAV LOVING Attending Unavailable ELIEL, PIPER L Referring Unavailable CHAVEZ, JAMARI L Primary Care Unavailable CHAVEZ, JAMARI L Primary Care Unavailable RONALDO RUBIO Attending Unavailable ELIEL, PIPER L Referring Unavailable CHAVEZ, JAMARI L Primary Care Unavailable CHAVEZ, JAMARI L Primary Care Unavailable WILLIAM GRAMAJO Attending Unavailable CHAVEZ, JAMARI L Primary Care [...] able CHAVEZ, JAMARI L Primary Care Unavailable MARY [...] Unavailable CHAVEZ, JAMARI L Primary Care Unavailable RONALDO RUBIO Referring Unavailable CHAVEZ, JAMARI L Primary Care Unavailable WILLIAM GRAMAJO Attending Unavailable AVILA, KARMON Referring Unavailable KELSY GUILLERMO Attending Unavailable CHAVEZ, JAMARI L Primary Care Unavailable CARRIE LARSEN Attending Unavailable CHAVEZ, JAMARI L Primary Care Unavailable CHAVEZ, JAMARI L Primary Care Unavailable KRYS KULKARNI Attending Unavailable CHAVEZ, JAMARI L Primary Care Unavailable KRYS KULKARNI Referring Unavailable CHAVEZ, JAMARI L Primary Care Unavailable Chavez, Jamari Primary Care Unavailable Liya, Mariajose Attending Unavailable Care Physician, No Primary Primary Care Unava ilable Shreyas Carver Attending Unavailable Care Physician, No Primary Referring Unava ilable Plotcher, Mariajose Attending Unavailable Chavez, Jamari Primary Care Unavailable Plotts, Mariajose Referring Unavailable Chavez, Jamari Primary Care Unavailable Waldron, Leonie Referring Unavailable Waldron, Leonie Attending Unavailable Chavez, Jamari Primary Care Unavailable William Gramajo Referring Unavailable William Gramajo Attending Unavailable Avila, Karmon Admitting Unavailable Wiswell, Keshav Referring Unavailable Wiswell, Keshav Attending Unavailable Wiswell, Keshav Admitting Unavailable Chavez, Jamari Primary Care Unavailable Chavez, Jamari Primary Care Unavailable Neyhart-Schulte, Whit Referring Unavail able Neyhart-Schulte, Whit Attending Unavail able Chavez, Jamari Primary Care Unavailable Neyhart-Schulte, Whit Attending Unavail able CHAVEZ, JAMARI L Primary Care Unavailable CHAVEZ, JAMARI L Primary Care Unavailable REZA DYER Attending Unavailable CHAVEZ, JAMARI L Primary Care Unavailable SIXTO MYERS Attending Unavailable Allergies Allergy Classification Reported Allergen(s) Allergy Type Date of Onset Reaction(s) Facility ARIPiprazole (1 source) ARIPiprazole Drug Allergy Unknown [facility] DOPamine Antagonists (5 sources) Metoclopramide; Translations: [Reglan] Drug Allergy Unknown [facility] Ondansetron (5 sources) Ondansetron; Translations: [Zofran] Drug Allergy Unknown [facility] QUEtiapine (5 sources) QUEtiapine; Translations: [quetiapine] Drug Allergy Unknown [facility] (1 source) No Known Drug Allergies; Translations: [No Known Drug Allergies] Propensity to adverse reactions (disorder) [facility] Repository (1 source) No Known Allergies; Translations: [No Known Allergies] Propensity to adverse reactions (disorder) [facility] Repository (20 sources) Ondansetron; Translations: [Zofran] Drug Allergy 02-06-20 18 Nausea and Vomiting, Vomiting, GI Upset, Other, Unknown, Nausea/vomitin [facility] (20 sources) Aluminum Hydroxide / Magnesium Hydroxide; Translations: [ALUMINUM-MAGNESIU M HYDROXIDE] Drug Allergy 02-06-20 18 GI Intolerance, Other, GI Upset [facility] (20 sources) Metoclopramide; Translations: [METOCLOPRAMIDE HCL] Drug Allergy 02-11-20 19 Hives, Unknown [facility] (20 sources) Ondansetron; Translations: [ONDANSETRON HCL] Drug Allergy 02-06-20 18 GI Intolerance, Unknown, GI Upset, Other [facility] (20 sources) QUEtiapine; Translations: [QUETIAPINE] Drug Allergy 10-05-19 19 Shortness Of Breath, Unknown, Palpitations, Other: See Comments, Other [facility] Comment on above: Lethargy (14 sources) Metoclopramide; Translations: [Reglan] Drug Allergy Unknown [facility] Repository (4 sources) Ondansetron; Translations: [ZOFRAN] Drug Allergy Unknown [facility] Rep[facility] (20 sources) Sertraline; Translations: [SERTRALINE] Drug Allergy 12-08-19 20 Other, Mental Status Change, Unknown [facility] Repository Comment on above: Suicidal Ideation (20 sources) ARIPiprazole; Translations: [ARIPIPRAZOLE] Drug Allergy 12-14-19 23 Unknown, Mental Status Change [facility] Work Phone: Comment on above: Suicidal Ideation (20 sources) Metoclopramide; Translations: [METOCLOPRAMIDE] Drug Allergy 02-11-20 19 Vomiting, Hives, Nausea/vomitin g, Unknown [facility] Comment on above: Heart palpitations (20 sources) Promethazine; Translations: [PROMETHAZINE] Drug Allergy 07-11-19 24 GI Upset [facility] Work Phone: (1 source) Promethazine Drug Allergy [facility] Repository (1 source) ARIPiprazole Drug Allergy 12-17-19 25 [facility] Repository (1 source) Metoclopramide Drug Allergy 12-17-19 25 [facility] Repository (1 source) Ondansetron Drug Allergy 12-17-19 25 [facility] Repository (1 source) QUEtiapine Drug Allergy 12-17-19 25 [facility] Repository Medications Current Medications Medication Drug Class(es) Dates Sig (Normalized) Sig (Original) acyclovir 400 mg oral tablet (20 sources) Herpesvirus Nucleoside Analog DNA Polymerase Inhibitor, Herpes Simplex Virus Nucleoside Analog DNA Polymerase Inhibitor, Herpes Zoster Virus Nucleoside Analog DNA Polymerase Inhibitor Start: 10-04-2024 End: 01-19-2025 take 1 tablet by mouth twice daily acyclovir (ZOVIRAX) 400 mg tablet Take 1 tablet by mouth two times a day. 60 tablet 3 01/19/2025 Active Start: 04-18-2024 End: 04-18-2024 take 800 [...] DAY FOR 2 DAYS. 04/19/2024 05/07/2024 Discontinued [id number] 200 actuat albuterol 0.09 mg/actuat metered dose [...] oral tablet (3 sources) Penicillin-class Antibacterial Start: 024 End: 024 take 1 tablet by mouth twice daily [...] 5 days. ARIPiprazole 5 mg oral tablet (8 sources) Atypical Antipsychotic Start: 05-05-20 18 take 1 tablet by mouth once daily ARIPiprazole (ABILIFY) 5 MG tablet Indications: Severe episode of recurrent major depressive disorder, without psychotic features (HCC) Take 1 (one) tablet (5 mg total) by mouth daily . 30 tablet 2 05/05/2018 Active Start: 01-23-2018 End: 02-26-2024 Aripiprazole (Abilify) 20 MG tablet Discontinued 25 mg PO DAILY January 23, 2018 12:00am February 26, 2024 1:48pm Blood-Glucose Meter (ONETOUC H VERIO FLEX METER) [...] tablet (3 sources) Mood Stabilizer Start: 07-05-19 21 End: 07-05-19 take 1 tablet by mouth twice daily carBAMazepine (TEGretol XR) 200 MG 12 hr tablet Indications: Seizure (HCC) Take 1 (one) tablet (200 mg total) by mouth 2 (two) times a day . 60 tablet 11 07/05/2020 Active clobetasol propionate 0.5 mg/ml topical cream (20 sources) Corticosteroid Start: 01-13-20 24 End: 04-18-20 25 clobetasol (Temovate) 0.05 % cream Apply 1 Application topically 2 times a day. 01/13/2024 Active 2 ml dicyclomine hydrochloride 10 mg/ml injection (2 sources) Anticholinergic Start: 09-13-19 dicyclomine (BENTYL) injection 20 mg Start: 09-12-2018 [...] mg PO DAILY November 15, 2024 12:00am anxiety Start: 02-26-2024 End: 11-15-2024 Fluoxetine 40 mg capsule Discontinued 20 mg PO daily February 26, 2024 12:00am November 15, 2024 4:00pm Mood Start: 02-26-2024 FLUoxetine (NC Ozac) 40 mg capsule 04/15/2024 Active Start: 09-27-2019 take 0.5 tablet by m outh once daily, then take 1 tablet by mouth FLUoxetine HCl - 20 MG Oral Tablet TAKE 0.5 tablet daily x 7 days then 1 whole tablet thereafer Quantity: 35 Refills: 0 Oberhauser DO, Rich Start : 27-Sep-2019 Active End: 05-04-2024 FLUoxetine [...] Start: 11-02-2020 take 1 tablet by migue th twice daily glipiZIDE 10 MG Oral Tablet [...] 5 06/07/2024 Active HumuLIN N NPH Insulin KwikPe n (4 sources) Start: 10-16-2024 HumuLIN N NPH Insulin KwikPen Active 90 U SC AT BEDTIME October 16, 2024 12:00am type II diabetes 90 units; Start: 10-16-2024 HumuLIN N NPH Insulin KwikPen [...] trimester 85 units at bedtime 45 mL 08/20/2024 08/30/2024 Discontinued Start: 07-26-2024 End: 08-20-2024 insulin NPH (HUMULIN N NPH I NSULIN KWIKPEN) 100 unit/mL (3 mL) injection pen Indications: Insulin controlled gestational diabetes mellitus (GDM) in first trimester 80 units at bedtime 45 mL 08/03/2024 08/20/2024 Discontinued Start: 07-20-2024 End: 07-26-2024 insulin NPH (HUMULIN N NPH I NSULIN KWIKPEN) 100 unit/mL (3 mL) injection pen Indications: Insulin controlled gestational diabetes mellitus (GDM) in first trimester 75 units at bedtime 10 Each 07/20/2024 07/26/2024 Discontinued Start: 06-25-2024 End: 07-20-2024 [...] trimester 53 units at bedtime 10 Each 11 06/07/2024 06/11/2024 Discontinued Start: 06-05-2024 End: 06-07-2024 [...] trimester 40 units at bedtime 5 Each 06/01/2024 06/05/2024 Discontinued Start: 05-17-2024 End: 06-01-2024 [...] pen injector (20 sources) Insulin Analog Start: 12-16-2024 Insulin Lispro (Humalog Kwikpen Insulin) 100 unit/mL insulin pen Active 8 U SC THREE TIMES A DAY December 16, 2024 12:00am Start: 07-26-2024 End: 08-03-2024 insulin lispro (HUMALOG KWIK PEN INSULIN) 100 [...] + scale (upto 100 units/day) 15 Each 06/07/2024 07/20/2024 Discontinued Start: 05-17-2024 End: 06-11-2024 [...] 5 Each 05/03/2024 06/01/2024 Discontinued Start: 02-26-2024 End: 12-16-2024 Insulin Lispro (Humalog Kwik pen Insulin) 100 unit/mL insulin pen Discontinued 23 U SC .COMPLEX February 26, 2024 12:00am December 16, 2024 8:14pm pregestational diabetes 23 units subcutaneously at breakfast and lunch; [...] 13, 2016 12:00am January 22, 2017 8:37am daily with meals Start: 12-13-2016 End: 01-22-2017 Insulin Lispro (Humalog [...] tablet (20 sources) Biguanide Start: 0 End: take 1 tablet by mouth twice daily metFORMIN (Glucophage) 1,000 mg tablet Indications: Hyperglycemia due to diabetes mellitus (Multi) Take 1 tablet (1,000 mg) by mouth 2 times a day. 180 tablet 3 09/30/2023 09/29/2024 Active Start: 09-27-2019 take 1 tablet by migue twice daily metFORMIN HCl - 500 MG Oral Tablet Take 1 tablet twice daily Quantity: 60 Refills: 6 Rich Ng DO Start : 27-Sep-2019 Active Start: 02-22-2019 [...] Start: 05-05-2018 take 2 tablets by mo [facility] twice daily at breakfast metFORMIN (GLUCOPHAGE-XR) 500 [...] mg PO TWICE DAILY WITH MEALS 60 1 January 22, 2017 12:00am January 23, 2018 8:01am take 2 tablets by mo ut twice daily at mealtime metformin 500 MG [...] Start: 07-03-2021 take 1 capsule by mo [facility] once daily Nitrofurantoin Monohyd Macro 100 MG [...] 3 mL alogliptin 25 mg oral tablet (8 sources) Start: 01-23-2018 End: 02-26-2024 take 1 tablet by mouth once daily Alogliptin 25 MG tablet Discontinued 25 mg PO DAILY January 23, 2018 12:00am February 26, 2024 1:48pm aspirin 81 mg delayed release oral tablet (20 sources) Platelet Aggregation Inhibitor, Nonsteroidal Anti-inflammatory Drug Start: 10-16-2024 End: 12-09-2024 take 1 tablet by mouth once daily Aspirin (Adult Aspirin Regimen) 81 mg tablet,delayed release (DR/EC) Discontinued 81 mg PO DAILY October 16, 2024 12:00am December 09, 2024 8:48am Start: 07-13-2024 End: 12-16-2024 take 2 tablets by mouth once daily at bedtime aspirin, enteric coated (ASPIRIN, ENTERIC COATED) 81 mg EC tablet Indications: with uncertain dates in first trimester (HCC) TAKE 2 TABLETS BY MOUTH EVERY DAY AT BEDTIME 180 tablet 1 09/06/2024 12/16/2024 Discontinued Start: 05-07-2024 End: 07-13-2024 take 1 tablet by mouth once daily aspirin, enteric coated (ECOTRIN LOW STRENGTH) 81 mg EC tablet Indications: with uncertain dates in first trimester Take 1 tablet by mouth once daily. 90 tablet 3 05/07/2024 07/13/2024 Discontinued azithromycin 1000 mg powder for oral suspension [...] (CMS/HCC) Apply every 10 days 3 each 11 09/09/2022 Active Blood-Glucose Sensor (FREEST YLE ZOLTAN [...] 12/08/2023 Active cephalexin 500 mg oral capsule (9 sources) Cephalosporin Antibacterial Start: 04-18-2024 End: 04-18-2024 [...] infection in mother during first trimester of ([facility]-H[facility]) Take 1 capsule (500 mg) by mouth [...] Discontinued 500 mg PO TWICE A DAY 10 January 23, 2018 12:00am February 26, 2024 [...] g 0 03/12/2017 09/12/2018 Discontinued Dexcom G4 kaibab oyster planter (Dexcom G6 Redye Hand) [facility]rench centerc (19 sources) Start: 03-17-2023 End: 05-04-2024 Dexcom G4 kaibab oyster planter (Dexcom G6 Redye Hand) misc Indications: Hyperglycemia due to diabetes mellitus (Multi) Use as instructed 1 each 03/17/2023 05/04/2024 Discontinued (Med List Cleanup) Start: 03-17-2023 Dexcom G4 plat inum oyster planter (Dexcom G6 Redye Hand) misc Indications: Hyperglycemia due to diabetes mellitus (Multi) Use as instructed 1 each 03/17/2023 Active Start: 03-17-2023 Dexcom G4 plat inum oyster planter (Dexcom G6 Redye Hand) misc Indications: Hyperglycemia due to diabetes mellitus (CMS/HCC) Use as instructed 1 each 0 03/17/2023 Active Start: 09-09-2022 End: 05-04-2024 Dexcom G4 kaibab oyster planter (Dexcom G6 Redye Hand) misc Indications: Hyperglycemia due to diabetes mellitus (Multi) Use as instructed 1 each 09/09/2022 05/04/2024 Discontinued (Med List Cleanup) Start: 09-09-2022 Dexcom G4 plat inum oyster planter (Dexcom G6 Redye Hand) misc Indications: Hyperglycemia due to diabetes mellitus (Multi) Use as instructed 1 each 09/09/2022 Active Start: 09-09-2022 Dexcom G4 plat inum oyster planter (Dexcom G6 Redye Hand) misc Indications: Hyperglycemia due to diabetes mellitus (CMS/HCC) Use as instructed 1 each 0 09/09/2022 Active Dexcom G4 kaibab transmitt er (Dexcom G6 Transmitter) device (12 sources) Start: 05-09-2023 End: 05-04-2024 Dexcom G4 kaibab transmitt er (Dexcom G6 Transmitter) device Indications: [...] Active Start: 12-13-2022 End: 05-09-2023 Dexcom G4 kaibab transmitt er (Dexcom G6 Transmitter) device Indications: Hyperglycemia due to diabetes mellitus (CMS/HCC) Apply every 10 days 1 each 12/13/2022 05/09/2023 Discontinued (Reorder) Start: 12-13-2022 Dexcom G4 plat inum transmitter (Dexcom G6 Transmitter) device Indications: Hyperglycemia due to diabetes mellitus (CMS/HCC) Apply every 10 days 1 each 11 12/13/2022 Active Start: 09-09-2022 End: 12-13-2022 Dexcom G4 kaibab transmitt er (Dexcom G6 Transmitter) device Indications: [...] Histamine-2 Receptor Antagonist Start: 05-25-20 End: 06-08-20 19 take 1 tablet by mouth twice daily [...] this medication. fluconazole 150 mg oral tablet (12 sources) Azole Antifungal Start: 02-26-20 End: 10-17-19 Fluconazole 150 mg tablet Discontinued 150 mg PO Every 3 Days 2 0 0 February 26, 2024 12:00am October 16, 2024 5:45pm october repeat second dose 72 hrs after first [...] 11/03/2024 Discontinued ibuprofen 600 mg oral tablet (5 sources) Nonsteroidal Anti-inflammatory Drug Start: 2016 End: 2024 take 1 tablet by mouth every six hours as needed for pain Ibuprofen 600 MG tablet Discontinued 600 mg PO EVERY 6 HOURS as needed for Pain 60 1 January 22, 2017 12:00am October 16, 2024 5:46pm 3 ml insulin glargine 100 unt/ml pen injector (20 sources) Insulin Analog Start: 2022 End: 2023 inject 10 [IU] by subcutaneous injection once daily at bedtime insulin glargine (Lantus Solostar U-100 Insulin) 100 unit/mL (3 mL) pen Indications: Hyperglycemia due to diabetes mellitus ([facility]) Inject 10 Units under the skin once [...] (Side effects) Insulin Nph And Regular Human (10 sources) Insulin Start: 12-13-2016 End: 01-22-2017 Insulin Nph And Regular Agusto n (Humulin 70/30 Kwikpen) 100 UNIT/ML Insuln.Pen Discontinued 48 U SQ AT BEDTIME December 13, 2016 12:00am January 22, 2017 8:37am diabetes Start: 12-13-2016 End: 01-22-2017 Insulin Nph And [...] LAN[place] Active lisinopril 2.5 mg oral tablet (11 sources) Angiotensin Converting Enzyme Inhibitor Start: 02-23-2019 [...] 2018 12:00am February 26, 2024 1:48pm Lumateperone (5 sources) Start: 02-26-2024 End: 10-16-2024 take 1 capsule by mouth once daily Lumateperone (Caplyta) 21 mg capsule Discontinued 21 mg PO daily February 26, 2024 12:00am October 16, 2024 5:49pm Start: 02-26-2024 take 1 capsule by [facility] once daily Lumateperone (Caplyta) 21 mg capsule [...] source) Biguanide, Dipeptidyl Peptidase 4 Inhibitor Start: End: take 1 tablet by mouth twice daily at mealtime Janumet 50-1000 MG Oral Tablet TAKE 1 TABLET TWICE DAILY WITH MEALS. Quantity: 60 Refills: 6 Ordered: 20-Sep-2020 Rich Ng DO Start : 19-Sep-2020 End : 02-Nov-2020 Complete metroNIDAZOLE 500 mg oral tablet (19 sources) Nitroimidazole Antimicrobial Start: 025 End: take 1 tablet by mouth twice [...] 1 TABLET DAILY. Quantity: 30 Refills: 11 Castinesam WEBSTER Juno Start : 13-May-2019 Active 28-0.8 MG Oral [...] another clinician) QUEtiapine 100 mg oral tablet (5 sources) Atypical Antipsychotic Start: 01-23-2018 End: 02-26-2024 [...] Problem Classification Problem Date Documented Date Episodic/Chronic Alcohol-related disorders (20 sources) History of alcohol [...] trimester] Onset: 10-21-2016 Resolved: 07-11-2023 12-03-2016 Chronic Comment on above: @ 38&3 Disorders of teeth and jaw (1 source) Toothache; Translations: [Other specified disorders of teeth and supporting structures] 08-19-2023 Episodic Esophageal disorders (20 sources) Gastroesophageal reflux disease; Translations: [Esophageal reflux] Onset: 07-11-2022 07-11-2022 Chronic Essential hypertension (20 sources) Hypertensive disorder; Translations: [Unspecified essential hypertension] Onset: 07-14-2017 03-12-2017 Chronic Headache; including migraine (7 sources) Refractory migraine without aura; Translations: [Migraine without aura, intractable, without status migrainosus] Onset: 02-22-2019 02-22-2019 Chronic Headache; including migraine (2 sources) Headache; Translations: [Headache] 12-16-2024 Episodic Immunizations and screening for infectious disease (2 [...] Translations: [Acute vaginitis] Onset: 04-28-2024 04-28-2024 Episodic Intestinal infection (12 sources) Intestinal trichomoniasis; Translations: [Intestinal trichomoniasis] Episodic Menstrual disorders (15 sources) Secondary amenorrhea; Translations: [Secondary amenorrhea] Onset: 08-17-2022 Chronic Mood disorders (20 sources) Depressive disorder; Translations: [Recurrent major depressive episodes, mild ] Onset: 07-14-2017 Resolved: 08-15-2017 03-12-2017 Chronic Mycoses (6 sources) Candidiasis of vagina; Translations: [Yeast vaginitis] Episodic Nausea and vomiting (4 sources) Nausea; Translations: [Nausea and vomiting] 12-16-2024 Episodic Osteoarthritis (5 sources) Osteoarthritis; Translations: [Unspecified osteoarthritis, unspecified site] [...] (HCC)] Onset: 10-12-2024 Episodic Other complications of (2 sources) Obesity complicating [...] first trimester] 05-21-2024 Episodic Other complications of (2 sources) Pruritus [...] Translations: [ pruritus, third trimester (HCC)] Onset: 11-11-2024 Episodic Other congenital anomalies (10 sources) Congenital anomaly of finger; 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)] Onset: 05-26-2024 Chronic Other connective tissue disease [...] perineum] 07-23-2024 Episodic Other female genital disorders (8 sources) Irritable uterus; Translations: [Other specified noninflammatory [...] Translations: [ pruritus, third trimester (HCC)] Onset: 11-11-2024 Episodic Other nutritional; endocrine; and metabolic disorders [...] unspecified reason] 09-24-2024 Episodic Residual codes; unclassified (9 sources) Gestation period, 27 weeks; Translations: [27 weeks gestation of ] 09-24-2024 Episodic Residual codes; unclassified (3 sources) Gestation period, 29 weeks; Translations: [29 weeks gestation of ] 10-05-2024 Episodic Residual codes; unclassified (9 sources) Gestation period, 31 weeks; Translations: [31 weeks gestation of ] 10-16-2024 Episodic Residual codes; unclassified (3 sources) Gestation period, 33 weeks; Translations: [33 weeks gestation of ] 11-02-2024 Episodic Residual codes; unclassified (2 sources) Gestation period, 34 weeks; Translations: [34 weeks gestation of ] 11-08-2024 Episodic Residual codes; unclassified (7 sources) Gestation period, 35 weeks; Translations: [35 weeks gestation of ] 11-15-2024 Episodic Residual codes; unclassified (1 source) Gestation period, 36 weeks; Translations: [36 weeks gestation of ] 11-25-2024 Episodic Residual codes; unclassified (1 source) Gestation period, 37 weeks; Translations: [37 weeks gestation of ] 12-02-2024 Episodic Residual codes; unclassified (6 sources) Gestation period, 38 weeks; Translations: [38 weeks gestation of ] 12-06-2024 Episodic Residual codes; unclassified (2 sources) History of past delivery; Translations: [Personal history of other genital system and obstetric disorders] 12-16-2024 Episodic Residual codes; unclassified (1 source) 38 weeks gestation of ; Translations: [38 weeks gestation of (HCC)] Onset: 12-06-2024 Episodic Residual codes; unclassified (1 source) 37 weeks gestation of ; Translations: [37 weeks gestation of (HCC)] Onset: 12-02-2024 Episodic Residual codes; unclassified (1 source) 36 weeks gestation of ; Translations: [36 weeks gestation of (HCC)] Onset: 11-25-2024 Episodic Residual codes; unclassified (1 source) 35 weeks gestation of ; Translations: [35 weeks gestation of (HCC)] Onset: 11-18-2024 Episodic Residual codes; unclassified (1 source) 29 weeks gestation of ; Translations: [29 weeks gestation of (HCC)] Onset: 11-18-2024 Episodic Residual codes; unclassified (1 source) 34 weeks gestation of ; Translations: [34 weeks gestation of (HCC)] Onset: 11-11-2024 Episodic Residual codes; unclassified (1 source) 33 weeks gestation of ; Translations: [33 weeks gestation of ([facility])] Onset: 11-02-2024 Episodic Residual codes; unclassified (1 source) 32 weeks gestation of ; Translations: [32 weeks gestation of ([facility])] Onset: 10-28-2024 Episodic Residual codes; unclassified (1 source) 31 weeks gestation of ; Translations: [31 weeks gestation of ([facility])] Onset: 10-18-2024 Episodic Schizophrenia and other psychotic disorders (9 [...] 05-07-2024 05-07-2024 Unclassified (20 sources) Education - [place] Onset: 05-07-2024 05-07-2024 Unclassified (2 sources) complication before (HCC); Translations: [ complication before (HCC)] Onset: 09-14-2024 Unclassified (1 source) Other specified diseases and conditions complicating puerperium; Translations: [Other specified diseases and conditions complicating puerperium] Onset: 12-22-2024 Urinary tract infections (2 sources) Urinary tract infectious disease; Translations: [Urinary tract infection, site not specified] Episodic Viral infection (3 sources) Herpetic vulvovaginitis; 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 vulvovaginitis] Onset: 04-18-2024 04-18-2024 Chronic Past or Other Problems Problem Classification Problem Date Documented Date Episodic/Chronic Abdominal pain (4 sources) Lower abdominal pain; Translations: [Lower abdominal pain, unspecified] Onset: 05-21-2024 Episodic Adjustment disorders (10 sources) Grief finding; Translations: [Adjustment disorder with depressed mood] Onset: 05-22-2018 Resolved: 02-22-2019 05-22-2018 Chronic Administrative/social admission (20 sources) Relationship problems; Translations: [Follow-up status] Onset: 07-30-2017 07-30-2017 Episodic Bacterial infection; unspecified site (20 sources) Chlamydial infection; Translations: [Unspecified chlamydial infection] Onset: 04-28-2024 Resolved: 12-21-2024 05-10-2024 Episodic Diabetes mellitus without complication (2 sources) Hyperglycemia; Translations: [Hyperglycemia] Episodic Diabetes or abnormal glucose tolerance complicating ; childbirth; or the puerperium (20 sources) Gestational diabetes mellitus; Translations: [Gestational diabetes mellitus in , unspecified control] Onset: 12-20-2016 Resolved: 07-11-2023 07-11-2023 Episodic Early or threatened labor (20 sources) False labor before 37 completed weeks of gestation; Translations: [False labor before 37 completed weeks of gestation, third trimester] Onset: 12-26-2016 Resolved: 07-11-2023 07-11-2023 Episodic Epilepsy; convulsions (20 sources) Seizure; Translations: [Neurological finding] Onset: 07-11-2022 Resolved: 07-11-2022 07-11-2022 Episodic Genitourinary symptoms and ill-defined conditions (20 sources) History of recurrent urinary tract infection; Translations: [Personal history of urinary (tract) infections] Onset: 05-07-2024 05-07-2024 Episodic Influenza (3 sources) Influenza due to Influenza A virus; Translations: [Influenza due to other identified influenza virus with other respiratory manifestations] Onset: 07-01-2024 07-01-2024 Episodic Other complications of (20 sources) Maternal obesity complicating , childbirth and the puerperium, antepartum; Translations: [Obesity complicating , first trimester] Onset: 05-07-2024 Resolved: 12-21-2024 05-07-2024 Chronic Other complications of (20 sources) Gestational proteinuria; [...] Onset: 05-10-2024 05-10-2024 Episodic Other complications of (20 sources) Complication occurring during ; Translations: [ complication before (HCC)] Onset: 09-14-2024 09-13-2024 Episodic Other complications of (2 sources) Supervision of with other poor reproductive or obstetric history, unspecified trimester; Translations: [H/O macrosomia in in prior , currently ([facility])] Onset: 05-07-2024 Episodic Other complications of (1 source) Smoking (tobacco) complicating , first trimester; Translations: [Tobacco smoking complicating in first trimester ([facility])] Onset: 05-07-2024 Episodic Other complications of (2 sources) Other viral diseases complicating , unspecified trimester; Translations: [Herpes simplex type 2 (HSV-2) infection affecting , antepartum, unspecified trimester ([facility])] Onset: 07-13-2024 Episodic Other complications of (1 source) Supervision of high risk , unspecified, second trimester; Translations: [Supervision of high risk in second trimester ([facility])] Onset: 09-24-2024 Episodic Other complications of (2 sources) Supervision of high risk , unspecified, first trimester; Translations: [Encounter for supervision of high risk in first trimester, antepartum ([facility])] Onset: 05-07-2024 Episodic Other complications of (1 source) Other specified related conditions, second trimester; Translations: [Other specified related conditions, second trimester] Onset: 09-29-2024 Episodic Other complications of (2 sources) Other specified related conditions, first trimester; Translations: [Other specified related conditions, first trimester ([facility])] Onset: 05-21-2024 Episodic Other complications of (2 sources) Unspecified infection of urinary tract in , first trimester; Translations: [Unspecified infection of urinary tract in , first trimester ([facility])] Onset: 04-18-2024 Episodic Other female genital disorders (20 sources) [...] [Necrobiosis lipoidica, not elsewhere classified] Onset: 07-10-2023 07-10-2023 Episodic Other skin disorders (2 sources) Sebaceous [...] Translations: [Less than 8 weeks gestation of ([facility])] Onset: 04-28-2024 Episodic Residual codes; unclassified (1 source) Personal history of other complications of , childbirth and the puerperium; Translations: [History of pre-eclampsia] Onset: 06-15-2024 Episodic Residual codes; unclassified (1 source) 27 weeks gestation of ; Translations: [27 weeks gestation of ([facility])] Onset: 09-24-2024 Episodic Residual codes; unclassified (1 source) Procedure and treatment not carried out, unspecified reason; Translations: [Procedure not carried out] Onset: 09-24-2024 Episodic Residual codes; unclassified (1 source) 25 weeks gestation of ; Translations: [25 weeks gestation of (HCC)] Onset: 09-08-2024 Episodic Residual codes; unclassified (1 source) 21 [...] other mental and behavioral disorders] Onset: 12-12-2016 Resolved: 12-21-2024 12-12-2016 Episodic Unclassified (1 source) LOWER ABD PAIN/VAGINAL PAIN Onset: 11-30-2017 Unclassified (9 sources) Patient encounter status; Translations: [Contraception management] Unclassified (1 source) Acute candidiasis of vulva and vagina; Translations: [Acute candidiasis of vulva and vagina] Onset: 08-17-2022 Unclassified (5 sources) Onset: 04-28-2024 Resolved: 05-04-2024 04-28-2024 Viral infection (19 sources) Herpes simplex; Translations: [Herpes simplex without mention of complication] Onset: 07-11-2022 Resolved: 07-11-2022 07-11-2022 Episodic NEGATED: Highlighted row has not occurred!Residual codes; unclassified (18 sources) Disease Episodic Results Test Name Value Interpretation Reference Range Facility HEMOGLOBIN A1C (POC)on 01-20 HbA1c (Bld) [Mass fraction] 7.1 % Abnormal 4.3 - 5.6 % [facility] Comment on above: Location:[facility], [address] [place] [address], [facility] Point of care (POC) Hemoglobin A1c [...] specific diabetes management situations: The POC device fitness and wellness instructor provides a normal range of 4.2% to 6.5% for the HGBA1C POC test. However, the [place] [employer] guidelines indicate that patients with [...] Interpretation and review of laboratory results Abnormal [facility] AST(SGOT)on 12-16-2024 AST [Catalytic activity/Vol] 17 U/L Normal <=31 [facility] Comment on above: Performed By: #### L 501.080 #### [facility] [address] [place], [address] Alanine Aminotransferas (SGP T)on 12-16-2024 ALT [Catalytic activity/Vol] 24 U/L Normal <=34 [facility] Comment on above: Performed By: #### L 501.080 #### [facility] [address] [place], [address] Bedside Glucoseon 12-16-2024 FINGERSTICK GLU 115 mg/dL High 74-106 [facility] Comment on above: Result Comment: ELLEN ZAMBRANO OF PATIENT CARE PER NURSING PROTOCOL Performed By: #### L 501.080 #### [facility] [address] [place], [address] CBC-Complete Blood Cnt No Di ffon 12-16-2024 Erythrocyte distribution width (RBC) [Ratio] 12.7 % Normal 11.6-14.6 [facility] Comment on above: Performed By: #### L 501.4405, L501.1105, L100.0500, L501.1400, L501.4100 #### [facility] [address] [place], [address] Hematocrit (Bld) [Volume fraction] 38.6 % Normal 37-47 [facility] Comment on above: Performed By: #### L 501.4405, L501.1105, L100.0500, L501.1400, L501.4100 #### [facility] [address] [place], [address] Hemoglobin (Bld) [Mass/Vol] 12.9 g/dL Normal 12.0-15.0 [facility] Comment on above: Performed By: #### L 501.4405, L501.1105, L100.0500, L501.1400, L501.4100 #### [facility] [address] [place], [address] MCH (RBC) [Entitic mass] 28.4 pg Normal 27.0-32.0 [facility] Comment on above: Performed By: #### L 501.4405, L501.1105, L100.0500, L501.1400, L501.4100 #### [facility] [address] [place], [address] MCHC (RBC) [Mass/Vol] 33.4 g/dL Normal 32-36 [facility] Comment on above: Performed By: #### L 501.4405, L501.1105, L100.0500, L501.1400, L501.4100 #### [facility] [address] [place], [address] MCV (RBC) [Entitic vol] 85.0 fL Normal 81-99 [facility] Comment on above: Performed By: #### L 501.4405, L501.1105, L100.0500, L501.1400, L501.4100 #### [facility] [address] [place], [address] Platelet mean volume (Bld) [Entitic vol] 9.3 fL Normal 6.2-12.0 [facility] Comment on above: Performed By: #### L 501.4405, L501.1105, L100.0500, L501.1400, L501.4100 #### [facility] [address] [place], [address] Platelets (Bld) [#/Vol] 378 10*3/uL Normal 150-450 [facility] Comment on above: Performed By: #### L 501.4405, L501.1105, L100.0500, L501.1400, L501.4100 #### [facility] [address] [place], [address] RBC (Bld) [#/Vol] 4.54 10*6/uL Normal 4.2-5.4 [facility] Comment on above: Performed By: #### L 501.4405, L501.1105, L100.0500, L501.1400, L501.4100 #### [facility] [address] [place], [address] RDW SD 38.8 fl Normal 35.1-43.9 [facility] Comment on above: Performed By: #### L 501.4405, L501.1105, L100.0500, L501.1400, L501.4100 #### [facility] [address] [place], [address] WBC (Bld) [#/Vol] 8.3 10*3/uL Normal 4.4-11.0 [facility] Comment on above: Performed By: #### L 501.4405, L501.1105, L100.0500, L501.1400, L501.4100 #### [facility] [address] [place], [address] CNPNon 12-16-2024 CNPN Normal [facility] Erythrocyte distribution wid th ratioOrdered By: Mariajose Nickerson on 12-16-2024 Erythrocyte distribution width (RBC) [Ratio] 12.7 % 11.6-14.6 [facility] Erythrocyte distribution wid th standard deviationOrdered By: Mariajose Nickerson on 12-16-2024 Erythrocyte distribution width (RBC) [Ratio] 38.8 fl 35.1-43.9 [facility] Glomerular filtration rate ( GFR) estimation/1.73 sq m using serum, plasma, or whole bOrdered By: Mariajose Nickerson on 12-16-2024 GFR/1.73 sq M.predicted among non-blacks MDRD (S/P/Bld) [Vol rate/Area] 126 mL/min/{1.73_m2} >60 [facility] Comment on above: mL/min/1.73m2 CKD-EP I Creatinine Equation (2020) [facility] deOrdered By: Mariajose Nickerson on 12-16-2024 Glucose [Mass/Vol] 115 mg/dL High 74-106 [facility] Comment on above: MANAGEMENT OF PATIEN T CARE PER NURSING PROTOCOL Hematocrit Auto (Bld) [Volum e fraction]Ordered By: Mariajose Nickerson on 12-16-2024 Hematocrit (Bld) [Volume fraction] 38.6 % 37-47 [facility] Hemoglobin measurementOrdere d By: Mariajose Nickerson on 12-16-2024 Hemoglobin (Bld) [Mass/Vol] 12.9 g/dL 12.0-15.0 [facility] - Chemistry and C hemistry - challengeOrdered By: Mariajose Nickerson on 12-16-2024 AST [Catalytic activity/Vol] 17 U/L <32 [facility] MCV (mean corpuscular volume ) determinationOrdered By: Mariajose Nickerson on 12-16-2024 MCV (RBC) [Entitic vol] 85.0 fL 81-99 [facility] Mean corpuscular hemoglobin (MCH) determinationOrdered By: Mariajose Nickerson on 12-16-2024 MCH (RBC) [Entitic mass] 28.4 pg 27.0-32.0 [facility] Mean corpuscular hemoglobin concentration (MCHC) determinationOrdered By: Mariajose Nickerson on 12-16-2024 MCHC (RBC) [Mass/Vol] 33.4 g/dL 32-36 [facility] Mean platelet volume determi nationOrdered By: Mariajose Nickerson on 12-16-2024 Platelet mean volume (Bld) [Entitic vol] 9.3 fL 6.2-12.0 [facility] OB Triage Physician Noteon 0 12-16-2024 OB Triage Physician Note [facility] Medical Records Department [address] [place] [address] OB Triage Physician Note 12/16/242022 MR#: [id number] Acct: [id number] Name: MELISSA BYRNE Rep #: [id number] : 1995 29 From: Mariajose Nickerson CNM PCP: Dr. Jamari Byrne MD Status:REG CLI Y Location: [place] [address] HPI - General HPI Narrative MELISSA BYRNE, is a 29 F who is 10 days post that presents to triage with headache, swelling, nausea and vomiting and to r/o pre e. Maternal Data Information ADA Calculator Estimated Delivery Date Method Current WG Current Estimate 12/18/24 Manual 39w 5d PFSH PFSH Medical History (Updated 12/16/24 @ 20:43 by Mariajose Nickerson CNM) Seizures Asthma Osteoarthritis Diabetes Home Medications ???Medication ???Instructions ???Recorded ???Last Taken ???Type buspirone 15 mg tablet 15 mg PO QDAY anxiety 02/26/2404/02 History HumuLIN N NPH Insulin KwikPen 90 units subcut QHS type II 12/15/24 History diabetes albuterol sulfate 90 mcg/actuation 1 - 2 puff inhalation PRN PRN 11/01/24 15:57 History aerosol inhaler shortness of breath or wheezing fluoxetine 20 mg capsule 20 mg PO DAILY anxiety 11/15/24 History insulin lispro 100 unit/mL 8 unit subcut TID 12/16/24 Unknown History subcutaneous pen (Humalog KwikPen (U-100) Insulin) Allergy/AdvReac Type Severity Reaction Status Date / Time aripiprazole (From Abilify) AdvReac Other Verified 12/16/24 20:13 metoclopramide (From Reglan) AdvReac Other Verified 12/16/24 20:13 ondansetron (From Zofran) AdvReac Vomiting Verified 12/16/24 20:13 quetiapine (From Seroquel) AdvReac Other Verified 12/16/24 20:13 sertraline (From Zoloft) AdvReac Other Verified 12/16/24 20:13 Family History Other Heart disease Hyperlipemia Surgical History (Updated 12/16/24 @ 20:28 by Mariajose Nickerson CNM) History of dilation and curettage History of oral surgery History of cholecystectomy Social History Smoking Status: Current every day smoker tobacco type: cigarettes alcohol intake: never substance use type: does not use History Elective abortions Hx Para 1 Spontaneous abortions Hx # Term Pregnancies Ectopic pregnancies Hx # Pregnancies Multiple births # of living children ROS Eyes Eyes: Denies blurry vision Cardiovascular Cardiovascular: Reports none; Denies chest pain at rest, chest pain with activity or dizziness Respiratory/Chest Respiratory/Chest: Denies cough or dyspnea Gastrointestinal Gastrointestinal: Reports none and other; Denies diarrhea or vomiting Genitourinary Genitourinary: Denies dysuria Musculoskeletal Musculoskeletal: Reports none Integumentary Integumentary: Reports none; Denies rash Neurologic Neurologic: Denies other visual disturbances Physical Exam Const alert and no apparent distress General Appearance: cooperative Orientation / Consciousness: awake Exam Limitations: no limitations HEENT normocephalic Eyes General Eye: normal appearance of both eyes Neck full ROM Chest inspection of chest normal Resp normal respiratory effort and normal air movement Effort and Inspection: symmetric chest movement Auscultation: clear to auscultation bilaterally Cardio regular rate GI soft to palpation, non-tender and non-distended Inspection: and other Back/Spine normal ROM Extremity full ROM, normal capillary refill and no calf tenderness Skin no rashes or lesions noted Neuro oriented x3 and CN's II-XII intact bilaterally Psych mental status grossly normal Assessment Plan (1) Bipolar 1 disorder: (2) Asthma: (3) Headache: (4) Status post vaginal delivery: (5) Type 2 diabetes mellitus: (6) Nausea vomiting: PLAN: Plan Blood pressures 106-118/60-70's Denies current headache No N/V today Thinks she just has not eaten enough today PIH labs normal Increase hydration- dinner offered to patient D/C home with follow up in office for PP visit 12/16/242046 Date Mariajose Samayoa Signature (if applicable): Date CC: JULIO Nickerson; Dr. Jamari Byrne MD Signed Normal [facility] Platelet countOrdered By: Tamera Nickerson on 12-16-2024 Platelets (Bld) [#/Vol] 378 10*3/uL 150-450 [facility] RBC Auto (Bld) [#/Vol]Ordere d By: Mariajose Nickerson on 12-16-2024 RBC (Bld) [#/Vol] 4.54 10*6/uL 4.2-5.4 [facility] Serum Creatinine AND GFRon 0 12-16-2024 Creatinine [Mass/Vol] 0.57 mg/dL Low 0.70-1.20 [facility] Comment on above: Performed By: #### L 501.4405, L501.1105, L100.0500, L501.1400, L501.4100 #### [facility] [address] [place], [address] ECRCL 250.08 ml/min High 50-250 [facility] Comment on above: Performed By: #### L 501.4405, L501.1105, L100.0500, L501.1400, L501.4100 #### [facility] [address] [place], [address] GFR/1.73 sq M.predicted among non-blacks MDRD (S/P/Bld) [Vol rate/Area] 126 mL/min/{1.73_m2} Normal >60 [facility] Comment on above: Result Comment: mL/m in/1.73m2 CKD-EPI Creatinine Equation (2020) Performed By: #### L 501.4405, L501.1105, L100.0500, L501.1400, L501.4100 #### [facility] Laboratory [address] [place], [address] Serum creatinine measurement (mass/volume)Ordered By: Mariajose Plotcher on 12-16-2024 Creatinine [Mass/Vol] 0.57 mg/dL Low 0.70-1.20 [facility] Serum or plasma alanine schafer otransferase (ALT) measurementOrdered By: [facility] on 12-16-2024 ALT [Catalytic activity/Vol] 24 U/L <35 [facility] Serum or plasma uric acid me asurement (mass/volume)Ordered By: [facility] 12-16-2024 Urate [Mass/Vol] 5.3 mg/dL 2.6-6.0 [facility] Comment on above: The drugs N-Acetylcy steine and Metamizole may falsely depress this assay. Uric Acidon 12-16-2024 URIC 5.3 mg/dL Normal 2.6-6.0 [facility] Comment on above: Result Comment: The drugs N-Acetylcysteine and Metamizole may falsely depress this assay. Performed By: #### L 501.080 #### [facility] Laboratory [address] [place], [address] White blood cell (WBC) count Ordered By: Mariajose Nickerson on 12-16-2024 WBC (Bld) [#/Vol] 8.3 10*3/uL 4.4-11.0 [facility] CNPNon 12-15-2024 CNPN Normal [facility] Bedside Glucoseon 12-09-2024 FINGERSTICK GLU 97 mg/dL Normal 74-106 [facility] Comment on above: Result Comment: ELLEN ZAMBRANO OF PATIENT CARE PER NURSING PROTOCOL Performed By: #### L 501.080 #### [facility] Laboratory [address] [place], [address] FINGERSTICK GLU 101 mg/dL Normal 74-106 [facility] Comment on above: Result Comment: ELLEN GEMENT OF PATIENT CARE PER NURSING PROTOCOL Performed By: #### L 501.080 #### [facility] Laboratory [address] [place], [address] [facility]dered By: William Gramajo on 12-09-2024 Glucose [Mass/Vol] 97 mg/dL 74-106 [facility] Comment on above: MANAGEMENT OF PATIEN T CARE PER NURSING PROTOCOL Bedside Glucoseon 12-08-2024 FINGERSTICK GLU 125 mg/dL High 74-106 [facility] Comment on above: Result Comment: ELLEN GEMENT OF PATIENT CARE PER NURSING PROTOCOL Performed By: #### L 501.080 #### [facility] Laboratory [address] [place], [address] FINGERSTICK GLU 93 mg/dL Normal -106 [facility] Comment on above: Result Comment: ELLEN GEMENT OF PATIENT CARE PER NURSING PROTOCOL Performed By: #### L 501.080 #### [facility] Laboratory [address] [place], [address] FINGERSTICK GLU 104 mg/dL Normal -106 [facility] Comment on above: Result Comment: ELLEN GEMENT OF PATIENT CARE PER NURSING PROTOCOL Performed By: #### L 501.080 #### [facility] Laboratory [address] [place], [address] FINGERSTICK GLU 132 mg/dL High -[address] [place] [address] Comment on above: Result Comment: ELLEN GEMENT OF PATIENT CARE PER NURSING PROTOCOL Performed By: #### L 501.080 #### [facility] Laboratory [address] [place], [address] CNPNon 12-08-2024 CNPN Normal [facility] Absolute lymphocyte countOrd ered By: William Gramajo on 12-07-2024 Lymphocytes Auto (Unsp spec) [#/Vol] 1.98 10*3/uL 0.83-4.51 [facility] Absolute neutrophil countOrd ered By: William Gramajo on 12-07-2024 Neutrophils (Bld) [#/Vol] 6.3 10*3/uL 2.0-7.7 [facility] Amphetamine detection with 1 000 ng/mL as cutoffOrdered By: William Gramajo on 12-07-2024 Amphetamines Screen method >1000 ng/mL Ql (U) Negative < 200 ng/mL [facility] Automated blood erythrocyte countOrdered By: William Gramajo on 12-07-2024 RBC (Bld) [#/Vol] 4.25 10*6/uL Normal 4.2-5.4 [facility] Comment on above: Performed By: #### B TS, L100.0100 #### [facility] Laboratory [address] [place], [address] Automated blood hematocrit ( percentage)Ordered By: William Gramajo on 12-07-2024 Hematocrit (Bld) [Volume fraction] 36.0 % Low 37-47 [facility] Comment on above: Performed By: #### Jo TS, L100.0100 #### [facility] Laboratory [address] [place], [address] Automated lymphocyte count a s percentage of total leukocytesOrdered By: William Gramajo on 12-07-2024 Lymphocytes/100 WBC Auto (Unsp spec) 22.0 % 19-41 [facility] Basophil percentageOrdered B y: William Gramajo on 12-07-2024 Basophils/100 WBC (Bld) 0.4 % Normal 0-1 [facility] Comment on above: Performed By: #### B TS, L100.0100 #### [facility] Laboratory [address] [place], [address] Bedside Glucoseon 12-07-2024 FINGERSTICK GLU 143 mg/dL High 74-106 [facility] Comment on above: Result Comment: ELLEN ZAMBRANO OF PATIENT CARE PER NURSING PROTOCOL Performed By: #### L 501.080 #### [facility] Laboratory [address] [place], [address] FINGERSTICK GLU 118 mg/dL High 74-106 [facility] Comment on above: Result Comment: ELLEN GEMENT OF PATIENT CARE PER NURSING PROTOCOL Performed By: #### L 501.080 #### [facility] Laboratory [address] [place], [address] FINGERSTICK GLU 73 mg/dL Low 74-106 [facility] Comment on above: Result Comment: ELLEN GEMENT OF PATIENT CARE PER NURSING PROTOCOL Performed By: #### L 501.080 #### [facility] Laboratory [address] [place], [address] FINGERSTICK GLU 99 mg/dL Normal 74-106 [facility] Comment on above: Result Comment: ELLEN GEMENT OF PATIENT CARE PER NURSING PROTOCOL Performed By: #### L 501.080 #### [facility] Laboratory [address] [place], [address] CBC W/Diff, Automatedon 07-0 -2024 Absolute Lymph 1.98 X10 3/uL Normal 0.83-4.51 [facility] Comment on above: Performed By: #### B TS, L100.0100 #### [facility] Laboratory [address] [place], [address] Absolute Neut 6.3 X10 3/uL Normal 2.0-7.7 [facility] Comment on above: Performed By: #### Jo KWON, L100.0100 #### [facility] Laboratory [address] [place], [address] IG% 0.600 Normal 0.0-0.9 [facility] Comment on above: Result Comment: IG% - Immature Granulocytes (promyelocytes, myelocytes and metamyelocytes) > 1% indicates that a LEFT SHIFT is Present. Performed By: #### B CHER, L100.0100 #### [facility] Laboratory [address] [place], [address] Lymphocytes/100 WBC (Bld) 22.0 % Normal 19-41 [facility] Comment on above: Performed By: #### B TS, L100.0100 #### [facility] Laboratory [address] [place], [address] Nucleated RBC (Bld) [#/Vol] 0 10*3/uL Normal 0-5 [facility] Comment on above: Performed By: #### B TS, L100.0100 #### [facility] Laboratory [address] [place], [address] RDW SD 41.1 fl Normal 35.1-43.9 [facility] Comment on above: Performed By: #### B TS, L100.0100 #### [facility] Laboratory [address] [place], [address] Eosinophil percentageOrdered By: William Gramajo on 12-07-2024 Eosinophils/100 WBC (Bld) 1.0 % Normal 0-5 [facility] Comment on above: Performed By: #### B CHER, L100.0100 #### [facility] Laboratory [address] [place], [address] Erythrocyte distribution wid th ratioOrdered By: William Gramajo on 12-07-2024 Erythrocyte distribution width (RBC) [Ratio] 13.4 % Normal 11.6-14.6 [facility] Comment on above: Performed By: #### B CHER, L100.0100 #### [facility] Laboratory [address] [place], [address] Erythrocyte distribution wid th standard deviationOrdered By: William Gramajo on 12-07-2024 Erythrocyte distribution width (RBC) [Ratio] 41.1 fl 35.1-43.9 [facility] H AND P Exam - OB/GYNon H&P Exam - MEMBER CERTIFICATION MANAGER [facility] Medical Records Department [address] [place] [address] H P Exam - MEMBER CERTIFICATION MANAGER 12/07/24 1223 MR#: [id number] Acct: [id number] Name: MELISSA BYRNE Rep #: [id number] : 1995 29 From: William Gramajo MD PCP: Dr. Jamari Byrne MD Status:ADM IN Location: [id number] HPI - General General Date of Admission: 12/07/24 HPI Narrative MELISSA BYRNE, is a 29 F who presents with contractions and was scheduled for induction today. Maternal Data Information ADA Calculator Estimated Delivery Date Method Current WG Current Estimate 12/18/24 Manual 38w 3d PFSH [facility] Medical History (Updated 12/07/24 @ 13:40 by [...] MD; Dr. William Gramajo MD Signed Normal [facility] Hemoglobin measurementOrdere d By: William Gramajo on 12-07-2024 Hemoglobin (Bld) [Mass/Vol] 12.1 g/dL Normal 12.0-15.0 [facility] Comment on above: Performed By: #### B TS, L100.0100 #### [facility] Laboratory [address] [place], [address] Immature granulocytes/100 WB C Auto (Bld)Ordered By: William Gramajo on 12-07-2024 Immature granulocytes/100 WBC (Bld) 0.600 % 0.0-0.9 [facility] Comment on above: IG% - Immature Granu locytes (promyelocytes, myelocytes and metamyelocytes) > 1% indicates that a LEFT SHIFT is Present. MCV (mean corpuscular volume ) determinationOrdered By: William Gramajo on 12-07-2024 MCV (RBC) [Entitic vol] 84.7 fL Normal 81-99 [facility] Comment on above: Performed By: #### B TS, L100.0100 #### [facility] Laboratory [address] [place], [address] MR/OB.VAGDELIon 12-07-2024 MR/OB.[facility]AGAT[facility]ALTHI [facility] Medical Records Department [address] [place] [address] OB Vaginal Delivery 12/07/242023 MR#: [id number] Acct: [id number] Name: MELISSA BYRNE Rep #: [id number] : 1995 29 From: William Gramajo MD PCP: Dr. Jamari Byrne MD Status:ADM IN [facility] M[facility] Data Information ADA Calculator Estimated Delivery Date Method Current WG Current Estimate 12/18/24 Manual 38w 3d Vaginal Delivery Maternal Presentation Maternal Presentation: Medically Indicated Induction Type of Induction: Pitocin and Amniotomy Medical Reason for Induction: Maternal Medical Condition: list: (Pregestational diabetes) Vaginal Delivery Information Procedure Performed: Spontaneous Vaginal Delivery Surgeon/Practitioner: William Gramajo Date of Procedure: 12/07/24 Pre-Procedure Diagnosis: Pregestational diabetes Post-Procedure Diagnosis: Same Type of anesthesia: Epidural Estimated Blood Loss: 300ml Findings Description of procedure: Called to room when patient C/C/+1. She was prepped draped. Patient pushed well to deliver the head. head was gently guided to allow delivery of anterior and posterior shoulders. No excess traction placed on the head. The body delivered. 3VC clamped and cut in delayed fashion. Placenta delivered with gentle traction and good uterine tone obtained. Presentation: CONTRERAS Amniotic Membrane Rupture Type: Artificial Amniotic Fluid Description: Clear Placental Delivery Description: Expressed Placenta Disposition: [facility] Specimen collected: No Cord Vessel Description: 3 Vessels Cord Entanglement: None Infant A Gender: Female (1 minute): 9 (5 minute): 10 Delayed Cord Clamping: Yes Machine Design Checker tailor women's garment alteration: No Post Vaginal Deli Medications given after delivery: IV Pitocin Episiotomy Description: None Laceration: None Complication Complications: No 12/07/242025 Cosigner Signature (if applicable): CC: Dr. Jamari Byrne MD; Dr. William Gramajo MD Signed Normal [facility] Mean corpuscular hemoglobin (MCH) determinationOrdered By: William Gramajo on 12-07-2024 MCH (RBC) [Entitic mass] 28.5 pg Normal 27.0-32.0 [facility] Comment on above: Performed By: #### B TS, L100.0100 #### [facility] Laboratory [address] [place], [address] Mean corpuscular hemoglobin concentration (MCHC) determinationOrdered By: William Gramajo on 12-07-2024 MCHC (RBC) [Mass/Vol] 33.6 g/dL Normal 32-36 [facility] Comment on above: Performed By: #### B TS, L100.0100 #### [facility] Laboratory [address] [place], [address] Mean platelet volume determi nationOrdered By: William Gramajo on 12-07-2024 Platelet mean volume (Bld) [Entitic vol] 9.7 fL Normal 6.2-12.0 [facility] Comment on above: Performed By: #### B TS, L100.0100 #### [facility] Laboratory [address] [place], [address] Monocyte percentageOrdered B y: William Gramajo on 12-07-2024 Monocytes/100 WBC (Bld) 6.0 % Normal 0-10 [facility] Comment on above: Performed By: #### B TS, L100.0100 #### [facility] Laboratory [address] [place], [place], [address] Neutrophil percentageOrdered By: William Gramajo on 12-07-2024 Neutrophils/100 WBC (Bld) 70.0 % Normal 47-70 [facility] Comment on above: Performed By: #### B TS, L100.0100 #### [facility] Laboratory [address] [place], [place], [address] No Panel InformationOrdered By: William Gramajo on 12-07-2024 Urine Buprenorphine Qualitative Negative < 200 ng/mL [facility] Urine Oxycodone Screen Negative < 100 ng/mL [facility] Nucleated red blood cell per centageOrdered By: William Gramajo on 12-07-2024 Nucleated RBC/100 WBC (Bld) [Ratio] 0 % 0-5 [facility] Platelet countOrdered By: Nickolas Gramajo on 12-07-2024 Platelets (Bld) [#/Vol] 230 10*3/uL Normal 150-450 [facility] Comment on above: Performed By: #### B TS, L100.0100 #### [facility] Laboratory [address] [place], [place], [address] Quantitative urine opiates m easurementOrdered By: William Gramajo on 12-07-2024 Opiates Ql (U) Negative < 300 ng/mL [facility] Screening urine fentanyl brigitte surementOrdered By: William Gramajo on 12-07-2024 fentaNYL Screen Ql (U) Negative [facility] Syphilis Antibodieson 2024 Syphilis Abs Non-Reactive Normal Nonreactive [facility] Comment on above: Performed By: #### L 501.080 #### [facility] Laboratory [address] [place], [place], [address] Type AND Screenon 12-07-2024 Ab SCREEN GEL Negative Normal [facility] Comment on above: Order Comment: Labor Performed By: #### B TS, L100.0100 #### [facility] Laboratory [address] [place], [address] Ur Drg Scn w/Rflx AMPH Confi rmon 12-07-2024 DRUG CONFIRM Normal [facility] Comment on above: Order Comment: . Result [...] TEST MNEMONIC: UTCA Performed By: #### L 501.080 #### [facility] Laboratory [address] [place], [address] VISTA UDS PH Normal [facility] Comment on above: Order Comment: . Performed By: #### L 501.080 #### [facility] Laboratory [address] [facility] [place], [address] Urine Drug Screen (VISTA)on 12-07-2024 BARBITIURATES Normal < 200 ng/mL [facility] Comment on above: Order Comment: . Performed By: #### L 501.080 #### [facility] Laboratory [address] [place], [address] BENZODIAZIPINE Normal < 200 ng/mL [facility] Comment on above: Order Comment: . Performed By: #### L 501.080 #### [facility] Laboratory [address] [place], [address] BUP Ur Drug Scr Normal < 200 ng/mL [facility] Comment on above: Order Comment: . Performed By: #### L 501.080 #### [facility] Laboratory [address] [place], [address] COCAINE Normal < 300 ng/mL [facility] Comment on above: Order Comment: . Performed By: #### L 501.080 #### [facility] Laboratory [address] [place], [address] Fentanyl Normal [facility] Comment on above: Order Comment: . Performed By: #### L 501.080 #### [facility] Laboratory [address] [place], [address] METHADONE Normal < 300 ng/mL [facility] Comment on above: Order Comment: . Performed By: #### L 501.080 #### [facility] Laboratory [address] [place], [address] OPIATES Normal < 300 ng/mL [facility] Comment on above: Order Comment: . Performed By: #### L 501.080 #### [facility] Laboratory [address] [place], [address] OXYCODONE Normal < 100 ng/mL [facility] Comment on above: Order Comment: . Performed By: #### L 501.080 #### [facility] Laboratory [address] [place], [address] PCP Normal < 25 ng/mL [facility] Comment on above: Order Comment: . Performed By: #### L 501.080 #### [facility] Laboratory [address] [place], [address] THC Normal < 50 ng/mL [facility] Comment on above: Order Comment: . Performed By: #### L 501.080 #### [facility] Laboratory [address] [place], [address] Urine benzodiazepine levelOr dered By: William Gramajo on 12-07-2024 Benzodiazepines Ql (U) Negative < 200 ng/mL [facility] Urine cocaine levelOrdered B y: William Gramajo on 12-07-2024 Cocaine Ql (U) Negative < 300 ng/mL [facility] Urine zuyib-1-ukogecgqpahmpv abinol (THC) measurementOrdered By: William Gramajo on 12-07-2024 Cannabinoids Screen Ql (U) Negative < 50 ng/mL [facility] Urine phencyclidine (PCP) de tectionOrdered By: William Gramajo on 12-07-2024 Phencyclidine Ql (U) Negative < 25 ng/mL [facility] White blood cell (WBC) count Ordered By: William Gramajo on 12-07-2024 WBC (Bld) [#/Vol] 9.0 10*3/uL Normal 4.4-11.0 [facility] Comment on above: Performed By: #### B TS, L100.0100 #### [facility] Laboratory [address] [place], [place], [address] CNPNon 12-06-2024 CNPN Normal [facility] Biophysical profile.tammy dy movement USon 12-06-2024 [facility] Radiology Study observation (narrative) [facility] URINE OB DIP B/Oon 5 Glucose Ql (U) 100 mg/dL Neg [facility] Interpretation and review of laboratory results Normal [facility] Protein.monoclonal (U) [Mass/Vol] Negative Neg mg/dL [facility] CNPNon 12-01-2024 CNPN Normal [facility] Biophysical profile.tammy dy movement USon 11-30-2024 [facility] Radiology Study observation (narrative) [facility] CNPNon 11-25-2024 CNPN Normal [facility] URINE OB DIP B/Oon 5 Glucose Ql (U) Negative Neg mg/dL [facility] Interpretation and review of laboratory results Normal [facility] Protein.monoclonal (U) [Mass/Vol] Negative Neg mg/dL [facility] Biophysical profile.tammy dy movement USon 11-22-2024 [facility] Radiology Study observation (narrative) [facility] OB Triage Physician Noteon 0 11-19-2024 OB Triage Physician Note [facility] Medical Records Department [address] [place] [address] OB Triage Physician Note 11/19/24711 MR#: [id number] Acct: [id number] Name: MELISSA BYRNE Rep #: [id number] : 1995 29 From: Whit Patel MD PCP: Dr. Jamari Byrne MD Status:DEP CLI Y Location: [facility] HPI - General General Date of Service: 11/15/24 HPI Narrative MELISSA BYRNE, is a 29 F @ 35.2 weeks who presents c/o contractions - r/o labor Maternal Data Information ADA Calculator Estimated Delivery Date Method Current WG Current Estimate 12/18/24 Manual 35w 6d PFSH PFSH Medical History Seizures Asthma Osteoarthritis [...] MD; Dr. Jamari Byrne MD Signed Normal [facility] BACTERIAL VAGINOSIS NAATon 0 11-18-2024 Lactobacillus crispatus+gasseri+dez senii + Gardnerella vaginalis + Atopobium vaginae rRNA SUMIT+probe Ql (Vag fld) Not detected Normal Not detected [facility] Comment on above: Order Comment: Speci men Type: SWABOrdering Facility: [facility] Address: [address] [place] [address] Performed By: #### B VAMP, CVTV ####[facility] LABCLIA [id number] [place] [address] [place] JOSUÉ/TRICHOMONAS NAATon 0 11-18-2024 C. glabrata RNA SUMIT+probe Ql (Vag fld) Not detected Normal Not detected [facility] Comment on above: Order Comment: Speci men Type: SWABOrdering Facility: [facility] Address: [address] [place] [address] Performed By: #### B VAMP, CVTV ####[facility] LABCLIA [id number] [place] [address] [place] Josué sp DNA SUMIT+probe Ql (Vag fld) Not detected Normal Not detected [facility] Comment on above: Order Comment: Speci men Type: SWABOrdering Facility: [facility] Address: [address] [place] [address] Result Comment: The Josué species group target includes C. albicans, C. tropicalis, C. parapsilosis, and C. dubliniensis. Performed By: #### Jo VAMP, CVTV ####[facility] LABCLIA [id number] [place] [address] [place] T. vaginalis DNA SUMIT+probe Ql (Unsp spec) Not detected Normal Not detected [facility] Comment on above: Order Comment: Speci men Type: SWABOrdering Facility: [facility] Address: [address] [place] [address] Performed By: #### B VAMP, CVTV ####[facility] LABCLIA [id number] [place] [address] [place] Urine Cultureon 11-17-2024 [facility] Comments: urine in l ab Mixed Gram Positive Organisms Morris Count 11,000-25,000 [facility] Mixed contaminants. Submit a new specimen if indicated. Normal [facility] Comment on above: Performed By: #### L 501.080 #### [facility] Laboratory [address] [place], [address] CNPNon 11-16-2024 CNPN Normal [facility] Amorphous sediment detection in urine sediment by light microscopyOrdered By: Whit Patel on 11-15-2024 Amorphous sediment LM Ql (Urine sed) 1+ [facility] Bilirubin Test strip Ql (U)O rdered By: Whit Patel on 11-15-2024 Bilirubin Ql (U) Negative Negative [facility] Calcium oxalate crystals det ection in urine sediment by light microscopyOrdered By: Whit Patel on 11-15-2024 Calcium oxalate crystals LM Ql (Urine sed) 2+ /hpf [facility] Biophysical profile.tammy dy movement USon 11-15-2024 [facility] Radiology Study observation (narrative) [facility] Ketones Test strip Ql (U)Ord ered By: Whit Patel on 11-15-2024 Ketones Ql (U) 5 mg/dl High Negative [facility] Microscopic analysis of urin e for red blood cells (RBC)Ordered By: Whit Patel on 11-15-2024 Microscopic analysis of urine for red blood cells (RBC) 0-5 SEEN /hpf 0-5 [facility] Mucus LM Ql (Urine sed)Order ed By: Whit Patel on 11-15-2024 Mucus Ql (Urine sed) 0 SEEN /hpf [facility] Nitrite Test strip Ql (U)Ord ered By: Whit Patel on 11-15-2024 Nitrite Ql (U) Negative Negative [facility] Protein Test strip Ql (U)Ord ered By: Whit Patel on 11-15-2024 Protein Ql (U) 15 mg/dl High Negative [facility] Squamous epithelial cells de tection in urine sediment by light microscopyOrdered By: Whit Patel on 11-15-2024 Epithelial cells.squamous LM Ql (Urine sed) 5-10 SEEN /hpf 5-10 [facility] URINE OB DIP B/Oon Glucose Ql (U) Negative Neg mg/dL [facility] Interpretation and review of laboratory results Normal [facility] Protein.monoclonal (U) [Mass/Vol] Negative Neg mg/dL [facility] Urinalysis, Completeon 11-15 AMORPHOUS 1+ Normal [facility] Comment on above: Order Comment: CLEAN CATCH Performed By: #### L 400.0001 #### [facility] [address] [place], [address] BACTERIA 2+ /hpf Normal None Seen [facility] Comment on above: Order Comment: CLEAN CATCH Performed By: #### L 400.0001 #### [facility] [address] [place], [address] CA OX CRYSTAL 2+ /hpf Normal [facility] Comment on above: Order Comment: CLEAN CATCH Performed By: #### L 400.0001 #### [facility] [address] [place], [address] EPI,SQUAMOUS 5-10 SEEN Normal 5-10 [facility] Comment on above: Order Comment: CLEAN CATCH Performed By: #### L 400.0001 #### [facility] [address] [place], [address] RBC 0-5 SEEN Normal 0-5 [facility] Comment on above: Order Comment: CLEAN CATCH Performed By: #### L 400.0001 #### [facility] [address] [place], [address] WBC 0-5 SEEN Normal 0-5 [facility] Comment on above: Order Comment: CLEAN CATCH Performed By: #### L 400.0001 #### [facility] [address] [place], [address] Mucus Ql (Urine sed) 0 SEEN Normal [facility] Comment on above: Order Comment: CLEAN CATCH Performed By: #### L 400.0001 #### [facility] [address] [place], [address] Urine clarityOrdered By: Solomon on 11-15-2024 Clarity (U) Clear Clear [facility] Urine color determinationOrd ered By: Whit Patel on 11-15-2024 Color (U) Yellow Yellow [facility] Urine cultureOrdered By: Solomon on 11-15-2024 Bacteria identified Cx Nom (U) Positive Abnormal [facility] Urine glucose detectionOrder ed By: Whit Patel on 11-15-2024 Glucose Ql (U) 1000 mg/dl High Normal [facility] Urine leukocyte esterase det ection by dipstickOrdered By: Whit Schulte on 11-15-2024 Leukocyte esterase Test strip Ql (U) Negative Negative [facility] Urine pHOrdered By: Whit Collado on 11-15-2024 pH (U) 6.0 [pH] 5.0 - 8.0 [facility] Urine sediment bacteria coun t by microscopy (number/high power field)Ordered By: Whit Patel on 11-15-2024 Bacteria LM.HPF (Urine sed) [#/Area] 2 /[HPF] None Seen [facility] Urine specific gravity measu rementOrdered By: Whit Patel on 11-15-2024 Specific gravity (U) [Rel density] 1.030 1.002-1.030 [facility] Urine urobilinogen measureme ntOrdered By: Whit Patel on 11-15-2024 Urobilinogen Ql (U) 1 mg/dl High Normal [facility] White blood cell countOrdere d By: Whit Patel on 11-15-2024 White blood cell count 0-5 SEEN /hpf 0-5 [facility] URINE OB DIP B/Oon Glucose Ql (U) Negative Neg mg/dL [facility] Protein.monoclonal (U) [Mass/Vol] Negative Neg mg/dL [facility] Biophysical profile.tammy dy movement USon 11-08-2024 [facility] Radiology Study observation (narrative) [facility] BILE ACIDS FRACT BLDon 11-05 CHENODEOXYCHOLIC ACID 0.8 umol/L Normal 0.0-3.4 [facility] Comment on above: Order Comment: Speci men Type: BLOOD SPECIMENOrdering Facility: [facility] Address: [address] [place] [address] Performed By: #### B ILE ####[facility] AltobeamCLIA [id number] [place] [address] CHOLIC ACID 0.8 umol/L Normal 0.0-1.9 [facility] Comment on above: Order Comment: Speci men Type: BLOOD SPECIMENOrdering Facility: [facility] Address: [address] [place] [address] Performed By: #### B ILE ####[facility] AltobeamCLIA [id number] [place] [address] DEOXYCHOLIC ACID 1.8 umol/L Normal 0.0-2.5 [facility] [place] Comment on above: Order Comment: Speci men Type: BLOOD SPECIMENOrdering Facility: [facility] Address: [address] [place] [address] Performed By: #### B ILE ####[facility] AltobeamCLIA [id number] [place] [address] TOTAL BILE ACIDS 3.7 umol/L Normal 0.0-7.0 [facility] [place] [facility] Comment on above: Order Comment: Speci men Type: BLOOD SPECIMENOrdering Facility: [facility] Address: [address] [place] [address] Result Comment: INTE RPRETIVE INFORMATION: Bile Acids, Fractionated and TotalThis test was developed and its performance characteristicsdetermined by [facility]. It has not been cleared orapproved by the [place] Food and Drug Administration. This test wasperformed in a CLIA certified laboratory and is intended forclinical purposes.Performed By: [facility] [place], [place] [address]Vgpiclmbiz Director: Cristofer Voss MD, PhDCLIA Number: [id number] Performed By: #### B ILE ####[facility]IESCL[facility] [id number] [place] [address] URSODEOXYCHOLIC ACID 0.3 umol/L Normal 0.0-1.0 [facility] Comment on above: Order Comment: Speci men Type: BLOOD SPECIMENOrdering Facility: [facility] Address: [address] [place] [address] Performed By: #### B ILE ####[facility]IESCLIA [id number] [place] [address] BILE ACIDS, TOTALon 11-06-19 25 Bile acid [Moles/Vol] 6.0 umol/L Normal <7.5 [facility] Comment on above: Order Comment: Speci men Type: BLOOD SPECIMENOrdering Facility: [facility] Address: [address] [place] [address] Result Comment: Refe rence interval applies to [...] 10.4 umol/L Performed By: #### B FREDERICK ####[facility] LABCLIA [id number] [place] [address] [place] Comprehensive metabolic 2000 panelOrdered By: Jayne Brunner on 11-05-2024 Albumin [Mass/Vol] 3.6 g/dL Low 3.9 - 4.9 g/dL [facility] ALP [Catalytic activity/Vol] 83 U/L 34 - 123 U/L [facility] ALT [Catalytic activity/Vol] 10 U/L 7 - 38 U/L [facility] Anion gap [Moles/Vol] 11 mmol/L 8 - 15 mmol/L [facility] AST [Catalytic activity/Vol] 9 U/L Low 13 - 35 U/L [facility] Bilirubin [Mass/Vol] 0.3 mg/dL 0.2 - 1 .3 mg/dL [facility] Calcium [Mass/Vol] 9 mg/dL 8.5 - 10. 2 mg/dL [facility] Chloride [Moles/Vol] 103 mmol/L 98 - 10 7 mmol/L [facility] CO2 [Moles/Vol] 21 mmol/L Low 22 - 30 mmol/L [facility] Creatinine [Mass/Vol] 0.42 mg/dL Low 0.58 - 0.96 mg/dL [facility] GFR/1.73 sq M.predicted among non-blacks MDRD (S/P/Bld) [Vol rate/Area] 136 mL/min/{1.73_m2} - PINF [facility] Comment on above: Estimated Glomerular Filtration [...] 115 mg/dL High 74 - 99 mg/dL [facility] Comment on above: The [place] Diabete s Association (ADA) provides guidance for [...] Standards of Medical Care in Diabetes 2016, [place] Diabetes Association. Diabetes Care. 2016.39(Suppl 1). Interpretation and review of laboratory results Abnormal [facility] Potassium [Moles/Vol] 3.8 mmol/L 3.7 - 5.1 mmol/L [facility] Protein [Mass/Vol] 6.9 g/dL 6.3 - 8.0 g/dL [facility] Sodium [Moles/Vol] 135 mmol/L Low 136 - 144 mmol/L [facility] Urea nitrogen [Mass/Vol] 7 mg/dL 7 - 21 mg/dL [facility] Comprehensive metabolic 2000 panelon 11-05-2024 Albumin [Mass/Vol] 3.6 g/dL Low 3.9-4.9 [facility] Comment on above: Order Comment: Speci men Type: BLOOD SPECIMENOrdering Facility: [facility] Address: [address] [place], [place] [address] Performed By: #### 2 4323-8 ####[facility] [id number] [place] [address] [place] ALP [Catalytic activity/Vol] 83 U/L Normal 34-123 [facility] Comment on above: Order Comment: Speci men Type: BLOOD SPECIMENOrdering Facility: [facility] Address: [address] [place] [address] Performed By: #### 2 4323-8 ####[facility] [id number] [place] [address] [place] ALT [Catalytic activity/Vol] 10 U/L Normal 7-38 [facility] Comment on above: Order Comment: Speci men Type: BLOOD SPECIMENOrdering Facility: [facility] Address: [address] [place] [address] Performed By: #### 2 4323-8 ####[facility] MILLTOWNCLIA [id number] [place] [address] [place] Anion gap [Moles/Vol] 11 mmol/L Normal 8-15 [facility] Comment on above: Order Comment: Speci men Type: BLOOD SPECIMENOrdering Facility: [facility] Address: [address] [place] [address] Performed By: #### 2 4323-8 ####[facility] MILLTOWNCLIA [id number] [place] [address] [place] AST [Catalytic activity/Vol] 9 U/L Low 13-35 [facility] Comment on above: Order Comment: Speci men Type: BLOOD SPECIMENOrdering Facility: [facility] Address: [address] [place] [address] Performed By: #### 2 4323-8 ####[facility] MILLWNCLIA [id number] [place] [address] [place] Bilirubin [Mass/Vol] 0.3 mg/dL Normal 0.2-1.3 [facility] Comment on above: Order Comment: Speci men Type: BLOOD SPECIMENOrdering Facility: [facility] Address: [address] [place] [address] Performed By: #### 2 4323-8 ####[facility] MILLTOWNCLIA [id number] [place] [address] [place] Calcium [Mass/Vol] 9.0 mg/dL Normal 8.5-10.2 [facility] Comment on above: Order Comment: Speci men Type: BLOOD SPECIMENOrdering Facility: [facility] Address: [address] [place] [address] Performed By: #### 2 4323-8 ####[facility] MILLTOWNCLIA [id number] [place] [address] [place] Chloride [Moles/Vol] 103 mmol/L Normal 98-107 [facility] Comment on above: Order Comment: Speci men Type: BLOOD SPECIMENOrdering Facility: [facility] Address: [address] [place] [address] Performed By: #### 2 4323-8 ####[facility] [id number] [place] [address] [place] CO2 [Moles/Vol] 21 mmol/L Low 22-30 [facility] Comment on above: Order Comment: Speci men Type: BLOOD SPECIMENOrdering Facility: [facility] Address: [address] [place] [address] Performed By: #### 2 4323-8 ####[facility] [id number] [place] [address] [place] Creatinine [Mass/Vol] 0.42 mg/dL Low 0.58-0.96 [facility] Comment on above: Order Comment: Speci men Type: BLOOD SPECIMENOrdering Facility: [facility] Address: [address] [place] [address] Performed By: #### 2 4323-8 ####[facility] [id number] [place] [address] [place] [facility] Creatinine and Glomerular filtration rate.predicted panel (S/P/Bld) 136 mL/min/1.73m??? Normal >=60 [facility] Comment on above: Order Comment: Speci men Type: BLOOD SPECIMENOrdering Facility: [facility] Address: [address] [place] [address] Result Comment: Ascencion mated Glomerular Filtration Rate [...] actual GFR. Performed By: #### 2 4323-8 ####[facility] [id number] [place] [address] [place] Glucose [Mass/Vol] 115 mg/dL High 74-99 [facility] Comment on above: Order Comment: Gume escobedo Type: BLOOD SPECIMENOrdering Facility: [facility] Address: [address] [place] [address] Result Comment: The [place] Diabetes Association (ADA) provides guidance for cutoff [...] Standards of Medical Care in Diabetes 2016, [place] Diabetes Association. Diabetes Care. 2016.39(Suppl 1). Performed By: #### 2 4323-8 ####[facility]NCA [id number] [place] [address] [place] Potassium [Moles/Vol] 3.8 mmol/L Normal 3.7-5.1 [facility] Comment on above: Order Comment: Gume escobedo Type: BLOOD SPECIMENOrdering Facility: [facility] Address: [address] [place] [address] Performed By: #### 2 4323-8 ####[facility] [id number] [place] [address] [place] Protein [Mass/Vol] 6.9 g/dL Normal 6.3-8.0 [facility] Comment on above: Order Comment: Gume escobedo Type: BLOOD SPECIMENOrdering Facility: [facility] Address: [address] [place] [address] Performed By: #### 2 4323-8 ####[facility]CL[facility] [id number] [place] [address] [place] Sodium [Moles/Vol] 135 mmol/L Low 136-144 [facility] Comment on above: Order Comment: Speci men Type: BLOOD SPECIMENOrdering Facility: [facility] Address: [address] [place] [address] Performed By: #### 2 4323-8 ####[facility]CL[facility] [id number] [place] [address] [place] Urea nitrogen [Mass/Vol] 7 mg/dL Normal 7-21 [facility] Comment on above: Order Comment: Speci men Type: BLOOD SPECIMENOrdering Facility: [facility] Address: [address] [place] [address] Performed By: #### 2 4323-8 ####[facility]CL[facility] [id number] [place] [address] [place] URINE OB DIP B/Oon 5 Glucose Ql (U) 250 mg/dL Neg [facility] Interpretation and review of laboratory results Normal [facility] Protein.monoclonal (U) [Mass/Vol] Negative Neg mg/dL [facility] CNCNPATEDon 11-04-2024 CNCNPATED Normal [facility] CNOVon 11-04-2024 CNOV Normal [facility] CNPNon 11-02-2024 CNPN Normal [facility] Examination level ultrasound on 11-02-2024 [facility] Radiology Study observation (narrative) [facility] URINE OB DIP B/Oon 5 Glucose Ql (U) 1000 mg/dL Neg [facility] Interpretation and review of laboratory results Abnormal [facility] Protein.monoclonal (U) [Mass/Vol] Negative Neg mg/dL [facility] CNPNon 10-29-2024 CNPN Normal [facility] CNPNon 10-27-2024 CNPN Normal [facility] CBC panel Auto (Bld)on 10-25 Erythrocyte distribution width (RBC) [Ratio] 12.9 % 11.5 - 15.0 % [facility] Hematocrit (Bld) [Volume fraction] 36 % 36.0 - 46.0 % [facility] Hemoglobin (Bld) [Mass/Vol] 12.4 g/dL 11.5 - 15.5 g/dL [facility] Interpretation and review of laboratory results Normal [facility] MCH (RBC) [Entitic mass] 29.5 pg 26.0 - 34.0 pg [facility] MCHC (RBC) [Mass/Vol] 34.4 g/dL 30.5 - 36.0 g/dL [facility] MCV (RBC) [Entitic vol] 85.5 fL 80.0 - 100.0 fL [facility] Nucleated RBC (Bld) [#/Vol] NINF [facility] Platelet mean volume (Bld) [Entitic vol] 9.6 fL 9.0 - 12.7 fL [facility] Platelets (Bld) [#/Vol] 274 10*3/uL [facility] RBC (Bld) [#/Vol] 4.21 10*6/uL 3.90 - 5.2 0 m/uL [facility] WBC (Bld) [#/Vol] 8.6 10*3/uL [facility] Erythrocyte distribution width (RBC) [Ratio] 12.9 % Normal 11.5-15.0 [facility] Comment on above: Order Comment: Speci men Type: BLOOD SPECIMENOrdering Facility: [facility] Address: [address] [place] [address] Performed By: #### 5 8410-2 ####[facility] [id number] [address] STATES OF [facility] Hematocrit (Bld) [Volume fraction] 36.0 % Normal 36.0-46.0 [facility] Comment on above: Order Comment: Speci men Type: BLOOD SPECIMENOrdering Facility: [facility] Address: [address] [place] [address] Performed By: #### 5 8410-2 ####[facility] VICKYWNCLIA [id number] [place] [address] [place] Hemoglobin (Bld) [Mass/Vol] 12.4 g/dL Normal 11.5-15.5 [facility] Comment on above: Order Comment: Speci men Type: BLOOD SPECIMENOrdering Facility: [facility] Address: [address] [place] [address] Performed By: #### 5 8410-2 ####[facility]CL[facility] [id number] [place] [address] [place] MCH (RBC) [Entitic mass] 29.5 pg Normal 26.0-34.0 [facility] Comment on above: Order Comment: Speci men Type: BLOOD SPECIMENOrdering Facility: [facility] Address: [address] [place] [address] Performed By: #### 5 8410-2 ####[facility] [id number] [place] [address] [place] MCHC (RBC) [Mass/Vol] 34.4 g/dL Normal 30.5-36.0 [facility] Comment on above: Order Comment: Speci men Type: BLOOD SPECIMENOrdering Facility: [facility] Address: [address] [place] [address] Performed By: #### 5 8410-2 ####[facility]ENTERLIA [id number] [place] [address] [place] MCV (RBC) [Entitic vol] 85.5 fL Normal 80.0-100.0 [facility] Comment on above: Order Comment: Speci men Type: BLOOD SPECIMENOrdering Facility: [facility] Address: [address] [place] [address] Performed By: #### 5 8410-2 ####[facility] [id number] [place] [address] [place] Nucleated RBC (Bld) [#/Vol] 10*3/uL Normal <0.01 [facility] Comment on above: Order Comment: Speci men Type: BLOOD SPECIMENOrdering Facility: [facility] Address: [address] [place] [address] Performed By: #### 5 8410-2 ####[facility]LLASRUFINOA [id number] [place] [address] [place] Platelet mean volume (Bld) [Entitic vol] 9.6 fL Normal 9.0-12.7 [facility] Comment on above: Order Comment: Speci men Type: BLOOD SPECIMENOrdering Facility: [facility] Address: [address] [place] [address] Performed By: #### 5 8410-2 ####[facility] [id number] [place] [address] [place] Platelets (Bld) [#/Vol] 274 10*3/uL Normal 150-400 [facility] Comment on above: Order Comment: Speci men Type: BLOOD SPECIMENOrdering Facility: [facility] Address: [address] [place] [address] Performed By: #### 5 8410-2 ####[facility] [id number] [place] [address] [place] RBC (Bld) [#/Vol] 4.21 10*6/uL Normal 3.90-5.20 [facility] Comment on above: Order Comment: Speci men Type: BLOOD SPECIMENOrdering Facility: [facility] Address: [address] [place] [address] Performed By: #### 5 8410-2 ####[facility] [id number] [place] [address] [place] WBC (Bld) [#/Vol] 8.60 10*3/uL Normal 3.70-11.00 [facility] Comment on above: Order Comment: Speci men Type: BLOOD SPECIMENOrdering Facility: [facility] Address: [address] [place] [address] Performed By: #### 5 8410-2 ####[facility] HOSPITALLIA [id number] [place] [id number] [place] [address] [place] Comprehensive metabolic 2000 panelOrdered By: Aquiles Denny on 10-25-2024 Albumin [Mass/Vol] 3.6 g/dL Low 3.9 - 4.9 g/dL [facility] ALP [Catalytic activity/Vol] 82 U/L 34 - 123 U/L [facility] ALT [Catalytic activity/Vol] 11 U/L 7 - 38 U/L [facility] Anion gap [Moles/Vol] 14 mmol/L 8 - 15 mmol/L [facility] AST [Catalytic activity/Vol] 9 U/L Low 13 - 35 U/L [facility] Bilirubin [Mass/Vol] 0.2 mg/dL 0.2 - 1 .3 mg/dL [facility] Calcium [Mass/Vol] 9.3 mg/dL 8.5 - 10. 2 mg/dL [facility] Chloride [Moles/Vol] 104 mmol/L 98 - 10 7 mmol/L [facility] CO2 [Moles/Vol] 18 mmol/L Low 22 - 30 mmol/L [facility] Creatinine [Mass/Vol] 0.39 mg/dL Low 0.58 - 0.96 mg/dL [facility] GFR/1.73 sq M.predicted among non-blacks MDRD (S/P/Bld) [Vol rate/Area] 138 mL/min/{1.73_m2} - PINF [facility] Comment on above: Estimated Glomerular Filtration [...] 103 mg/dL High 74 - 99 mg/dL [facility] Comment on above: The [place] Diabete s Association (ADA) provides guidance for [...] Standards of Medical Care in Diabetes 2016, [place] Diabetes Association. Diabetes Care. 2016.39(Suppl 1). Interpretation and review of laboratory results Abnormal [facility] Potassium [Moles/Vol] 3.9 mmol/L 3.7 - 5.1 mmol/L [facility] Protein [Mass/Vol] 7 g/dL 6.3 - 8.0 g/dL [facility] Sodium [Moles/Vol] 136 mmol/L 136 - 144 mmol/L [facility] Urea nitrogen [Mass/Vol] 5 mg/dL Low 7 - 21 mg/dL [facility] Comprehensive metabolic 2000 panelon 10-25-2024 Albumin [Mass/Vol] 3.6 g/dL Low 3.9-4.9 [facility] Comment on above: Order Comment: Speci men Type: BLOOD SPECIMENOrdering Facility: [facility] Address: [address] [place] [address] Performed By: #### 2 4323-8 ####[facility] [id number] [place] [address] [place] ALP [Catalytic activity/Vol] 82 U/L Normal 34-123 [facility] Comment on above: Order Comment: Speci men Type: BLOOD SPECIMENOrdering Facility: [facility] Address: [address] [place] [address] Performed By: #### 2 4323-8 ####[facility] [id number] [place] [address] [place] ALT [Catalytic activity/Vol] 11 U/L Normal 7-38 [facility] Comment on above: Order Comment: Speci men Type: BLOOD SPECIMENOrdering Facility: [facility] Address: [address] [place] [address] Performed By: #### 2 4323-8 ####[facility]CL[facility] [id number] [place] [address] [place] Anion gap [Moles/Vol] 14 mmol/L Normal 8-15 [facility] Comment on above: Order Comment: Speci men Type: BLOOD SPECIMENOrdering Facility: [facility] Address: [address] [place] [address] Performed By: #### 2 4323-8 ####[facility] [id number] [place] [address] [place] AST [Catalytic activity/Vol] 9 U/L Low 13-35 [facility] Comment on above: Order Comment: Speci men Type: BLOOD SPECIMENOrdering Facility: [facility] Address: [address] [place] [address] Performed By: #### 2 4323-8 ####[facility] [id number] [place] [address] [place] Bilirubin [Mass/Vol] 0.2 mg/dL Normal 0.2-1.3 [facility] [facility] Comment on above: Order Comment: Speci men Type: BLOOD SPECIMENOrdering Facility: [facility] Address: [address] [place] [address] Performed By: #### 2 4323-8 ####[facility] [id number] [place] [address] [place] Calcium [Mass/Vol] 9.3 mg/dL Normal 8.5-10.2 [facility] Comment on above: Order Comment: Speci men Type: BLOOD SPECIMENOrdering Facility: [facility] Address: [address] [place] [address] Performed By: #### 2 4323-8 ####[facility]CL[facility] [id number] [place] [address] [place] Chloride [Moles/Vol] 104 mmol/L Normal 98-107 [facility] Comment on above: Order Comment: Speci men Type: BLOOD SPECIMENOrdering Facility: [facility] Address: [address] [place] [address] Performed By: #### 2 4323-8 ####[facility]CLI [id number] [place] [address] [place] CO2 [Moles/Vol] 18 mmol/L Low 22-30 [facility] Comment on above: Order Comment: Speci men Type: BLOOD SPECIMENOrdering Facility: [facility] Address: [address] [place] [address] Performed By: #### 2 4323-8 ####[facility] [id number] [place] [address] [place] Creatinine [Mass/Vol] 0.39 mg/dL Low 0.58-0.96 [facility] Comment on above: Order Comment: Speci men Type: BLOOD SPECIMENOrdering Facility: [facility] Address: [address] [place] [address] Performed By: #### 2 4323-8 ####[facility]ENTERLI [id number] [place] [address] [place] [facility] Creatinine and Glomerular filtration rate.predicted panel (S/P/Bld) 138 mL/min/1.73m??? Normal >=60 [facility] Comment on above: Order Comment: Speci men Type: BLOOD SPECIMENOrdering Facility: [facility] Address: [address] [place] [address] Result Comment: Ascencion mated Glomerular Filtration Rate [...] actual GFR. Performed By: #### 2 4323-8 ####[facility] CENTERWKLAUSLIA [id number] [place] [address] [place] Glucose [Mass/Vol] 103 mg/dL High 74-99 [facility] Comment on above: Order Comment: Gume escobedo Type: BLOOD SPECIMENOrdering Facility: [facility] Address: [address] [place] [address] Result Comment: The [place] Diabetes Association (ADA) provides guidance for cutoff [...] Standards of Medical Care in Diabetes 2016, [place] Diabetes Association. Diabetes Care. 2016.39(Suppl 1). Performed By: #### 2 4323-8 ####[facility]ENTERA [id number] [place] [address] [place] Potassium [Moles/Vol] 3.9 mmol/L Normal 3.7-5.1 [facility] Comment on above: Order Comment: Gume escobedo Type: BLOOD SPECIMENOrdering Facility: [facility] Address: [address] [place] [place] [id number] Performed By: #### 2 4323-8 ####[facility] CENTERWNCLIA [id number] [place] [address] [place] Protein [Mass/Vol] 7.0 g/dL Normal 6.3-8.0 [facility] Comment on above: Order Comment: Speci men Type: BLOOD SPECIMENOrdering Facility: [facility] Address: [address] [place] [address] Performed By: #### 2 4323-8 ####[facility] [id number] [place] [address] [place] Sodium [Moles/Vol] 136 mmol/L Normal 136-144 [facility] Comment on above: Order Comment: Speci men Type: BLOOD SPECIMENOrdering Facility: [facility] Address: [address] [place] [address] Performed By: #### 2 4323-8 ####[facility] [id number] [place] [address] [place] Urea nitrogen [Mass/Vol] 5 mg/dL Low 7-21 [facility] Comment on above: Order Comment: Speci men Type: BLOOD SPECIMENOrdering Facility: [facility] Address: [address] [place] [address] Performed By: #### 2 4323-8 ####[facility] [id number] [place] [address] [place] [id number] 10-25-2024 ECG01 Normal [facility] PARVOVIRUS B19 IGG+Mon 10-25 PARVO B19 IGG, QUAL Positive Abnormal Negative [facility] Comment on above: Order Comment: Speci men Type: BLOOD SPECIMENOrdering Facility: [facility] Address: [address] [place] [address] Result Comment: Parv ovirus B19 virus IgG [...] not for life.Results were obtained with the Biotrin Parvovirus B19 IgG Enzyme Immunoassay. Performed By: #### P ARV ####[facility] LABCLIA [id number] [place] [address] [place] PARVO B19 IGM, QUAL Negative Normal Negative [facility] Comment on above: Order Comment: Speci men Type: BLOOD SPECIMENOrdering Facility: [facility] Address: [address] [place] [address] Result Comment: Parv ovirus B19 virus IgM [...] Enzyme Immunoassay. Performed By: #### P ARV ####[facility] LABCLIA [id number] [place] [address] [place] URINE OB DIP B/OOrdered By: Renetta Petersen on 10-25-2024 Glucose Ql (U) Negative Neg mg/dL [facility] Protein.monoclonal (U) [Mass/Vol] Negative Neg mg/dL [facility] Urine Cultureon 10-20-2024 URC Urine Culture #1 Below infection level. Streptococcus agalactiae (B) Morris Count <1000 Mixed Gram Positive Organisms Mixed Gram Positive Organisms MIXC Mixed contaminants. Submit a new specimen if indicated. Streptococcus agalactiae (B): REACTION Ampicillin Islt STEF <=0.25 cefTRIAXone Islt STEF <=0.12 S Clindamycin.induced Susc Islt Linezolid Islt STEF <=2 S Vancomycin Islt STEF 0.5 S Normal [facility] Comment on above: Performed By: #### L 501.080 #### [facility] [address] [place], [place], [address] CNPNon 10-19-2024 CNPN Normal [facility] URINE OB DIP B/Oon Glucose Ql (U) Negative Neg mg/dL [facility] Interpretation and review of laboratory results Normal [facility] Protein.monoclonal (U) [Mass/Vol] Negative Neg mg/dL [facility] Bedside Glucoseon 10-16-2024 FINGERSTICK GLU 106 mg/dL Normal 74-106 [facility] Comment on above: Result Comment: ELLEN KAPLANENT OF PATIENT CARE PER NURSING PROTOCOL Performed By: #### L 501.080 #### [facility] [address] [place], [address] Bilirubin Test strip Ql (U)O rdered By: Mariajose Nickerson on 10-16-2024 Bilirubin Ql (U) Negative Negative [facility] Glucose measurement at [facility] deOrdered By: Mariajose Nickerson on 10-16-2024 Glucose [Mass/Vol] 106 mg/dL 74-106 [facility] Comment on above: MANAGEMENT OF PATIEN T CARE PER NURSING PROTOCOL Ketones Test strip Ql (U)Ord ered By: Mariajose Nickerson on 10-16-2024 Ketones Ql (U) Negative Negative [facility] Microscopic analysis of urin e for red blood cells (RBC)Ordered By: Mariajose Nickerson on 10-16-2024 Microscopic analysis of urine for red blood cells (RBC) 0 SEEN /hpf 0-5 [facility] Mucus LM Ql (Urine sed)Order ed By: Mariajose Nickerson on 10-16-2024 Mucus Ql (Urine sed) 0 SEEN /hpf [facility] Nitrite Test strip Ql (U)Ord ered By: Mariajose Nickerson on 10-16-2024 Nitrite Ql (U) Negative Negative [facility] OB Triage Physician Noteon 0 10-16-2024 OB Triage Physician Note [facility] Medical Records Department [address] [place] [address] OB Triage Physician Note 10/16/24 1838 MR#: [id number] Acct: [id number] Name: MELISSA BYRNE Rep #: [id number] : 1995 29 From: Mariajose Nickerson CNGardenia PCP: Dr. Jamari Byrne MD Status:REG CLI Y Location: [place] [id number] HPI - General HPI Narrative MELISSA BYRNE, is a 29 F at 31 weeks gestation who presents with lower abdominal pain and tightening. Denies any loss of fluid or vaginal bleeding. Maternal Data Information ADA Calculator Estimated Delivery Date Method Current WG Current Estimate 12/18/24 Manual 31w 0d PFSH PFS Medical History Seizures Asthma Osteoarthritis [...] with plan of care 10/16/242000 Date Mariajose Samayoa Signature (if applicable): Date CC: JULIO Nickerson; Dr. Jamari Byrne MD Signed Normal [facility] Protein Test strip Ql (U)Ord ered By: Mariajose Nickerson on 10-16-2024 Protein Ql (U) 30 mg/dl High Negative [facility] Squamous epithelial cells de tection in urine sediment by light microscopyOrdered By: Mariajose Nickerson on 10-16-2024 Epithelial cells.squamous LM Ql (Urine sed) 5-10 SEEN /hpf 10-16 [facility] Urinalysis, Completeon 10-16 EPI,SQUAMOUS - SEEN Normal 10-16 [facility] Comment on above: Order Comment: CLEAN CATCH Performed By: #### L 501.080 #### [facility] [address] [place], [address] BACTERIA 0 SEEN Normal None Seen [facility] Comment on above: Order Comment: CLEAN CATCH Performed By: #### L 501.080 #### [facility] [address] [place], [address] Mucus Ql (Urine sed) 0 SEEN Normal [facility] Comment on above: Order Comment: CLEAN CATCH Performed By: #### L 501.080 #### [facility] [address] [place], [address] RBC 0 SEEN Normal 0-5 [facility] Comment on above: Order Comment: CLEAN CATCH Performed By: #### L 501.080 #### [facility] [address] [place], [address] WBC 0 SEEN Normal 0-5 [facility] Comment on above: Order Comment: CLEAN CATCH Performed By: #### L 501.080 #### [facility] [address] [place], [place], [id number] Urine clarityOrdered By: Yoli Nickerson on 10-16-2024 Clarity (U) Sl. Cloudy Clear [facility] Urine color determinationOrd ered By: Mariajose Nickerson on 10-16-2024 Color (U) Yellow Yellow [facility] Urine cultureOrdered By: Lizet Julian on 10-16-2024 Bacteria identified Cx Nom (U) Streptococcus agalactiae (B) Abnormal [facility] Bacteria identified Cx Nom (U) Positive Abnormal [facility] Urine glucose detectionOrder ed By: Mariajose Nickerson on 10-16-2024 Glucose Ql (U) 50 mg/dl High Normal [facility] Urine leukocyte esterase det ection by dipstickOrdered By: Mariajose Nickerson on 10-16-2024 Leukocyte esterase Test strip Ql (U) 25 /ul High Negative [facility] Urine pHOrdered By: Mariajose Nickerson on 10-16-2024 pH (U) 6.0 [pH] 5.0 - 8.0 [facility] Urine sediment bacteria coun t by microscopy (number/high power field)Ordered By: Mariajose Nickerson on 10-16-2024 Bacteria LM.HPF (Urine sed) [#/Area] 0 /[HPF] None Seen [facility] Urine specific gravity measu rementOrdered By: Mariajosemanpreet Nickerson on 10-16-2024 Specific gravity (U) [Rel density] 1.025 1.002-1.030 [facility] Urine urobilinogen measureme ntOrdered By: Mariajose Nickerson on 10-16-2024 Urobilinogen Ql (U) 1 mg/dl High Normal [facility] White blood cell countOrdere d By: Mariajosemanpreet Nickerson on 10-16-2024 White blood cell count 0 SEEN /hpf 0-5 [facility] ECHO FETALon 10-12-2024 + -----+-+ Pediatric Cardiology Echocardiogram Report + -----+-+ NAME: MELISSA BYRNE : 1995 PT ID#: [id number] Age: 29 years Sex: F STUDY DATE: 10/12/2024 10:05:33 AM ADA: 12/18/2024 GA: 30w3d Image Quality: Technically difficult and adequate. Referring Physician: Pamela Haskins Diagnosing Physician: Pamela Haskins Senior Linux Systems Engineer: Melissa Pineda RDMS, RDCS 2nd Senior Linux Systems Engineer: Diagnosis: O35.2FA2Wpsacqgsr abnormality and damage, single fetus or unspecified Procedure Code: 95809, 32329, 94613 Echo, Complete (w/Doppler and color) Exam Location: [facility] (). Indications: Evaluate cardiac anatomy and [...] rate and rhythm. HR 140 bpm Mechanical NC 84 ms Segmental Anatomy, Cardiac Position and [...] content not included)... [facility] FETALon 10-12-2024 + --- -----+-+ Pediatric Cardiology Echocardiogram Report + -----+-+ NAME: MELISSA BYRNE : 1995 PT ID#: [id number] Age: 29 years Sex: F STUDY DATE: 10/12/2024 10:05:33 AM ADA: 12/18/2024 GA: 30w3d Image Quality: Technically difficult and adequate. Referring Physician: Pamela Haskins Diagnosing Physician: Pamela Haskins Senior Linux Systems Engineer: Melissa Pineda RDMS, RDNOELLE 2nd Senior Linux Systems Engineer: Diagnosis: O35.2YN3Cyirovxxq abnormality and damage, single fetus or unspecified Procedure Code: 21323, 38487, 87247 Echo, Complete (w/Doppler and color) Exam Location: [facility] (). Indications: Evaluate cardiac anatomy and [...] rate and rhythm. HR 140 bpm Mechanical NC 84 ms Segmental Anatomy, Cardiac Position and [...] on 10/12/2024 at 12:38:17 PM Final CC [employer] Image : [id number] goDynamicsSISUID See Link below for Image Normal [facility] CNPNon 10-08-2024 CNPN Normal [facility] Bacteria Ur Culton Bacteria identified Cx Nom (U) ORGANISM ID: 1 10,000 -<50,000 CFU/ml Normal urogenital hima Streptococcus agalactiae (Group B streptococcus) was identified in this specimen, which is clinically relevant if the individual is . Normal [facility] Comment on above: Performed By: #### 6 30-4 ####[facility] LABCLIA [id number] [place] [address] [place] Prot/Creat Uron 10-04-2024 Protein/Creatinine (U) [Mass ratio] 0.10 mg/mg Normal <0.15 [facility] Comment on above: Order Comment: Speci men Type: URINE SPECIMENOrdering Facility: [facility] Address: [address] [place] [address] Result Comment: Adul t Proteinuria Categories:<0.15 mg/mg is considered normal to mildly increased0.15 - 0.50 mg/mg is considered moderately increased>0.50 mg/mg is considered severely increasedKDIGO. (2013). KDIGO 2012 Clinical Practice Guideline for the Evaluation and Management of Chronic Kidney Disease. Official Journal of the International Society of Nephrology, 3(1), 1-150. Performed By: #### 2 890-2 ####[facility] [id number] [place] [id number] [place] Protein/Creatinine (U) [Mass ratio]on 10-04-2024 Creatinine (U) [Mass/Vol] 67.2 mg/dL Normal 20.0-300.0 [facility] Comment on above: Order Comment: Speci men Type: URINE SPECIMENOrdering Facility: [facility] Address: [address] [place] [address] Performed By: #### 2 890-2 ####[facility] [id number] [place] [id number] [place] Protein (U) [Mass/Vol] 7 mg/dL Normal 0-20 [facility] Comment on above: Order Comment: Speci men Type: URINE SPECIMENOrdering Facility: [facility] Address: [address] [place] [address] Performed By: #### 2 890-2 ####[facility] [id number] [place] [id number] [place] CNPNon 10-02-2024 CNPN Normal [facility] CNPNon 09-27-2024 CNPN Normal [facility] OB Triage Physician Noteon 0 09-25-2024 OB Triage Physician Note [facility] Medical Records Department [address] [place] [address] OB Triage Physician Note 09/25/24 0934 MR#: [id number] Acct: [id number] Name: MELISSA BYRNE Rep #: [id number] : 1995 29 From: Leonie Waldron CNM PCP: Dr. Jamari Byrne MD Status:DEP CLI Y Location: [facility] HPI - General HPI Narrative MELISSA BYRNE, is a 29 F who presents at 27 weeks with ADA 12/23/24 with complaints of abdominal tightening. No vaginal bleeding, leakage of fluid or other symptoms. PFSH PFSH Medical History Seizures Asthma Osteoarthritis [...] labor 2) PO hydration 3) D/C home 09/25/24 0936 Date Leonie Waldron [facility] Cosigner Signature (if applicable): Date CC: [facility] Leonie Waldron; Dr. Jamari Byrne MD Signed Normal [facility] BACTERIAL VAGINOSIS NAATon 0 09-24-2024 Lactobacillus crispatus+gasseri+dez senii + Gardnerella vaginalis + Atopobium vaginae rRNA SUMIT+probe Ql (Vag fld) Detected Abnormal Not detected [facility] Comment on above: Order Comment: Speci men Type: SWABOrdering Facility: [facility] Address: [address] [place] [address] Performed By: #### C VTV, BVAMP ####[facility] LABCLIA [id number] [place] [address] [place] Bacteria Ur Culton 5 Bacteria identified Cx Nom (U) ORGANISM ID: 1 10,000 -<50,000 CFU/ml Normal urogenital hima Normal [facility] Comment on above: Performed By: #### 6 30-4 ####[facility] LABCLIA [id number] [place] [address] [place] JOSUÉ/TRICHOMONAS NAATon 0 09-24-2024 C. glabrata RNA SUMIT+probe Ql (Vag fld) Not detected Normal Not detected [facility] Comment on above: Order Comment: Speci men Type: SWABOrdering Facility: [facility] Address: [address] [place] [address] Performed By: #### C VTV, BVAMP ####[facility] LABCLIA [id number] [place] [address] [place] Josué sp DNA SUMIT+probe Ql (Vag fld) Not detected Normal Not detected [facility] Comment on above: Order Comment: Speci men Type: SWABOrdering Facility: [facility] Address: [address] [place] [address] Result Comment: The Josué species group target includes C. albicans, C. tropicalis, C. parapsilosis, and C. dubliniensis. Performed By: #### C VTV, BVAMP ####[facility] LABCLIA [id number] [place] [address] [place] T. vaginalis DNA SUMIT+probe Ql (Unsp spec) Not detected Normal Not detected [facility] Comment on above: Order Comment: Speci men Type: SWABOrdering Facility: [facility] Address: [address] [place] [address] Performed By: #### C VTV, BVAMP ####[facility] LABCLIA [id number] [place] [address] [place] CNOVon 09-24-2024 CNOV Normal [facility] CNPNon 09-24-2024 CNPN Normal [facility] UA DIP, URINE (POC)on 2024 BILIRUBIN UA (POCT) Negative Negative [facility] CLARITY UA (POCT) Clear [facility] COLOR UA (POCT) Yellow [facility] GLUCOSE UA (POCT) Negative Negative mg/dL [facility] Hemoglobin Ql (U) Negative Negative [facility] Interpretation and review of laboratory results Abnormal [facility] KETONE UA (POCT) 15 mg/dL Abnormal Negative [facility] LEUKOCYTES UA (POCT) Moderate Abnormal Negative [facility] NITRITE UA (POCT) Negative Negative [facility] PH UA (POCT) 7 4.5 - 8.0 [facility] Protein Ql (U) Negative Negative mg/dL [facility] SPECIFIC GRAVITY UA (POCT) 1.02 1.005 - 1.030 [facility] UROBILINOGEN UA (POCT) 1 Normal E.U./dL [facility] Location:[facility], [address] [facility], [place], [address] [facility] POINT OF CARE [facility] CNOVon 09-20-2024 CNOV Normal [facility] HEMOGLOBIN A1C (POC)on 09-20 HbA1c (Bld) [Mass fraction] 5.2 % 4.3 - 5.6 % [facility] Comment on above: Location:[facility], [address] [place] [address], [facility] Point of care (POC) Hemoglobin A1c [...] specific diabetes management situations: The POC device fitness and wellness instructor provides a normal range of 4.2% to 6.5% for the HGBA1C POC test. However, the [place] Diabetes Association guidelines indicate that patients with [...] anemia) that alter red blood cell lifespan. [facility] CNPNon 09-11-2024 CNPN Normal [facility] CBC W Auto Differential pane l (Bld)on 09-08-2024 Basophils (Bld) [#/Vol] 0.03 10*3/uL Normal <0.11 [facility] Comment on above: Order Comment: Speci men Type: BLOOD SPECIMENOrdering Facility: [facility] Address: [address] [place] [address] Performed By: #### 5 7021-8 ####[facility] VICKYWNCLIA [id number] [place] [address] [place] Basophils/100 WBC (Bld) 0.3 % Normal [facility] Comment on above: Order Comment: Speci men Type: BLOOD SPECIMENOrdering Facility: [facility] Address: [address] [place] [address] Performed By: #### 5 7021-8 ####[facility] CENTERLIA [id number] [place] [address] [place] Differential cell count method Nom (Bld) Auto Normal [facility] Comment on above: Order Comment: Speci men Type: BLOOD SPECIMENOrdering Facility: [facility] Address: [address] [place] [address] Performed By: #### 5 7021-8 ####[facility] CENTERLIA [id number] [place] [address] [place] Eosinophils (Bld) [#/Vol] 0.15 10*3/uL Normal <0.46 [facility] Comment on above: Order Comment: Speci men Type: BLOOD SPECIMENOrdering Facility: [facility] Address: [address] [place] [address] Performed By: #### 5 7021-8 ####[facility]ENTERLIA [id number] [place] [address] [place] Eosinophils/100 WBC (Bld) 1.7 % Normal [facility] Comment on above: Order Comment: Speci men Type: BLOOD SPECIMENOrdering Facility: [facility] Address: [address] [place] [address] Performed By: #### 5 7021-8 ####[facility]CLIA [id number] [place] [address] [place] Erythrocyte distribution width (RBC) [Ratio] 13.6 % Normal 11.5-15.0 [facility] Comment on above: Order Comment: Speci men Type: BLOOD SPECIMENOrdering Facility: [facility] Address: [address] [place] [address] Performed By: #### 5 7021-8 ####[facility] [id number] [place] [address] [place] Hematocrit (Bld) [Volume fraction] 35.0 % Low 36.0-46.0 [facility] Comment on above: Order Comment: Speci men Type: BLOOD SPECIMENOrdering Facility: [facility] Address: [address] [place] [address] Performed By: #### 5 7021-8 ####[facility] [id number] [place] [address] [place] [place] Hemoglobin (Bld) [Mass/Vol] 12.2 g/dL Normal 11.5-15.5 [facility] Comment on above: Order Comment: Speci men Type: BLOOD SPECIMENOrdering Facility: [facility] Address: [address] [place] [address] Performed By: #### 5 7021-8 ####[facility] CENTERLIA [id number] [place] [address] [place] Immature granulocytes (Bld) [#/Vol] 0.06 10*3/uL Normal <0.10 [facility] Comment on above: Order Comment: Speci men Type: BLOOD SPECIMENOrdering Facility: [facility] Address: [address] [place] [address] Performed By: #### 5 7021-8 ####[facility]LLASNCLIA [id number] [place] [address] [place] Immature granulocytes/100 WBC (Bld) 0.7 % Normal [facility] Comment on above: Order Comment: Speci men Type: BLOOD SPECIMENOrdering Facility: [facility] Address: [address] [place] [address] Performed By: #### 5 7021-8 ####[facility] PINELLASNCMATHEUSA [id number] [place] [address] [place] Lymphocytes (Bld) [#/Vol] 2.07 10*3/uL Normal 1.00-4.00 [facility] Comment on above: Order Comment: Speci men Type: BLOOD SPECIMENOrdering Facility: [facility] Address: [address] [place] [address] Performed By: #### 5 7021-8 ####[facility] PINELLASKLAUSA [id number] [place] [address] [place] Lymphocytes/100 WBC (Bld) 23.7 % Normal [facility] Comment on above: Order Comment: Speci men Type: BLOOD SPECIMENOrdering Facility: [facility] Address: [address] [place] [address] Performed By: #### 5 7021-8 ####[facility] P[facility]LLASNCMATHEUSA [id number] [place] [address] [place] MCH (RBC) [Entitic mass] 30.5 pg Normal 26.0-34.0 [facility] Comment on above: Order Comment: Speci men Type: BLOOD SPECIMENOrdering Facility: [facility] Address: [address] [place] [address] Performed By: #### 5 7021-8 ####[facility] P[facility]LLASNCLIA [id number] [place] [address] [place] MCHC (RBC) [Mass/Vol] 34.9 g/dL Normal 30.5-36.0 [facility] Comment on above: Order Comment: Speci men Type: BLOOD SPECIMENOrdering Facility: [facility] Address: [address] [place] [address] Performed By: #### 5 7021-8 ####[facility] CENTERWNCLIA [id number] [place] [address] [place] MCV (RBC) [Entitic vol] 87.5 fL Normal 80.0-100.0 [facility] Comment on above: Order Comment: Speci men Type: BLOOD SPECIMENOrdering Facility: [facility] Address: [address] [place] [address] Performed By: #### 5 7021-8 ####[facility] PINELLASKLAUSLIA [id number] [place] [address] [place] Monocytes (Bld) [#/Vol] 0.37 10*3/uL Normal <0.87 [facility] Comment on above: Order Comment: Speci men Type: BLOOD SPECIMENOrdering Facility: [facility] Address: [address] [place] [address] Performed By: #### 5 7021-8 ####[facility] CENTERA [id number] [place] [address] [place] Monocytes/100 WBC (Bld) 4.2 % Normal [facility] Comment on above: Order Comment: Speci men Type: BLOOD SPECIMENOrdering Facility: [facility] Address: [address] [place] [address] Performed By: #### 5 7021-8 ####[facility] P[facility]LLASKLAUSLIA [id number] [place] [address] [place] Neutrophils (Bld) [#/Vol] 6.04 10*3/uL Normal 1.45-7.50 [facility] Comment on above: Order Comment: Speci men Type: BLOOD SPECIMENOrdering Facility: [facility] Address: [address] [place] [address] Performed By: #### 5 7021-8 ####[facility] PINELLASNCLI [id number] [place] [address] [place] Neutrophils/100 WBC (Bld) 69.4 % Normal [facility] Comment on above: Order Comment: Speci men Type: BLOOD SPECIMENOrdering Facility: [facility] Address: [address] [place] [address] Performed By: #### 5 7021-8 ####[facility]LLASNCMOUNTAINSTAR HEALTHCARE [id number] [place] [address] [place] Nucleated RBC (Bld) [#/Vol] 10*3/uL Normal <0.01 [facility] Comment on above: Order Comment: Speci men Type: BLOOD SPECIMENOrdering Facility: [facility] Address: [address] [place] [address] Performed By: #### 5 7021-8 ####[facility]LLASNCMOUNTAINSTAR HEALTHCARE [id number] [place] [address] [place] Nucleated RBC/100 WBC (Bld) [Ratio] 0.0 /100 WBC Normal [facility] Comment on above: Order Comment: Speci men Type: BLOOD SPECIMENOrdering Facility: [facility] Address: [address] [place] [address] Performed By: #### 5 7021-8 ####[facility]LLASNCMOUNTAINSTAR HEALTHCARE [id number] [place] [address] [place] Platelet mean volume (Bld) [Entitic vol] 9.5 fL Normal 9.0-12.7 [facility] Comment on above: Order Comment: Speci men Type: BLOOD SPECIMENOrdering Facility: [facility] Address: [address] [place] [address] Performed By: #### 5 7021-8 ####[facility]LLASNCMOUNT[facility]STAR [facility]ALTH[facility] [id number] [place] [address] [place] Platelets (Bld) [#/Vol] 282 10*3/uL Normal 150-400 [facility] Comment on above: Order Comment: Speci men Type: BLOOD SPECIMENOrdering Facility: [facility] Address: [address] [place] [address] Performed By: #### 5 7021-8 ####[facility] P[facility]LLASNCLIA [id number] [place] [address] [place] RBC (Bld) [#/Vol] 4.00 10*6/uL Normal 3.90-5.20 [facility] Comment on above: Order Comment: Speci men Type: BLOOD SPECIMENOrdering Facility: [facility] Address: [address] [place] [address] Performed By: #### 5 7021-8 ####[facility]LLASNCLIA [id number] [place] [address] [place] WBC (Bld) [#/Vol] 8.72 10*3/uL Normal 3.70-11.00 [facility] Comment on above: Order Comment: Speci men Type: BLOOD SPECIMENOrdering Facility: [facility] Address: [address] [place] [address] Performed By: #### 5 7021-8 ####[facility] CENTERLIA [id number] [place] [address] [place] Reagin and Treponema pallidu m IgG and IgM [Interp]on 09-08-2024 T. pallidum IgG+IgM IA Ql (S) Non-Reactive Nonreactive [facility] T. pallidum IgG+IgM IA Ql (S) Non-Reactive Normal Nonreactive [facility] Comment on above: Order Comment: Speci men Type: BLOOD SPECIMENOrdering Facility: [facility] Address: [address] [place] [address] Performed By: #### 7 3752-8 ####[facility] LABCLIA [id number] [place] [address] [place] Reagin+T pallidum IgG+IgM Se rPl-Impon 09-08-2024 Reagin and Treponema pallidum IgG and IgM [Interp] Cannot exclude recent Treponemal infection if specimen collected within 7-10 days after appearance of suspect lesions or 2-3 weeks after an exposure. Clinical correlation is required. Normal [facility] Comment on above: Order Comment: Speci men Type: BLOOD SPECIMENOrdering Facility: [facility] Address: [address] [place] [address] Performed By: #### 7 3752-8 ####[facility] LABCLIA [id number] [place] [address] [place] SYPHILIS TREPONEMAL W/REFLEX on 09-08-2024 Reagin and Treponema pallidum IgG and IgM [Interp] Cannot exclude recent Treponemal infection if specimen collected within 7-10 days after appearance of suspect lesions or 2-3 weeks after an exposure. Clinical correlation is required. [facility] 09-07-2024 CNPN Normal [facility] Examination level ultrasound on 09-03-2024 [facility] Examination level ultrasound on 09-02-2024 Radiology Study observation (narrative) [facility] 08-30-2024 CNPN Normal [facility] CNPNon 08-24-2024 CNPN Normal [facility] FETALon 08-24-2024 + --- -----+-+ Pediatric Cardiology Echocardiogram Report + -----+-+ NAME: MELISSA BYRNE : 1995 PT ID#: [id number] Age: 29 years Sex: F STUDY DATE: 08/24/2024 12:29:33 PM ADA: 12/18/2024 GA: 23w3d Image Quality: Technically difficult and inadequate. Referring Physician: Pooja Latham Diagnosing Physician: Pamela Haskins Senior Linux Systems Engineer: Idalmis Hough [facility] 2nd Senior Linux Systems Engineer: Diagnosis: [id number] abnormality and damage, single fetus or unspecified Procedure Code: 29732, 14133, 93754 Echo, Complete (w/Doppler and color) Exam Location: [facility] (). Indications: Evaluate cardiac anatomy and [...] rate and rhythm. HR 149 bpm Mechanical NC 110 ms Segmental Anatomy, Cardiac Position and [...] on 08/24/2024 at 1:34:49 PM Final (Updated) [employer] [facility] Image : [id number] [email or web address] See Link below for Image Normal [facility]Non 08-20-2024 [facility] CNPNon 08-18-2024 [facility] CNPNon 08-14-2024 [facility] Normal [facility] Examination level ultrasound on 08-10-2024 Indication Detailed [...] 13 oz EFW by: Hadlock (HC-AC-FL) Extended Washhouse Worker 7.6 mm CM 5.7 mm 61% Nicolaides [...] normal LVOT view: normal 3-vessel view: normal 6-hqdqps-xthcecv view: normal Heart / Thorax Situs: situs [...] Umbilical A S / D 3.59 36% Hema Maternal Structures Uterus / Cervix Uterus: Visualized Cervix: Visualized Approach: Transabdominal Cervical length 34.8 mm Other: Patient declined transvaginal ultrasound for cervical length. Ovaries / Tubes / Adnexa Rt ovary: Visualized Lt ovary: Visualized Performed By: Idania Snyder RDMS, RVT Read By: Pooja Latham M.D. MATERNAL MEDICINE [facility] Radiology Study observation (narrative) [facility] URINE OB DIP B/Oon Glucose Ql (U) Negative Neg mg/dL [facility] Interpretation and review of laboratory results Normal [facility] Protein.monoclonal (U) [Mass/Vol] Negative Neg mg/dL [facility] CNPNon 08-08-2024 CNPN Normal [facility] CNPNon 08-01-2024 CNPN Normal [facility] CNOVon 07-26-2024 CNOV Normal [facility] CNOVon 07-23-2024 CNOV Normal [facility] CNPNon 07-20-2024 CNPN Normal [facility] CNPNon 07-14-2024 CNPN Normal [facility] Examination level ultrasound on 07-13-2024 Indication Early [...] 6 oz EFW by: Hadlock (HC-AC-FL) Extended Washhouse Worker 4.2 mm Extremities / Bony Struc FL / HC 0.17 44% Hadlock Other Structures FHR 152 bpm Anatomy Cranium: normal Lateral ventricles: normal Choroid plexus: normal Midline falx: normal Cerebellum: normal Cisterna magna: normal Lips: normal Profile: normal 4-chamber view: normal RVOT view: normal LVOT view: normal 3-vessel view: normal 6-joukif-sgxccoy view: normal Heart / Thorax Diaphragm: normal [...] Read By: Pooja Latham M.D. MATERNAL MEDICINE [facility] Radiology Study observation (narrative) [facility] URINE OB DIP B/OOrdered By: Rebeca Vazquez on 07-13-2024 Glucose Ql (U) 100 mg/dL Neg [facility] Interpretation and review of laboratory results Normal [facility] Protein.monoclonal (U) [Mass/Vol] Negative Neg mg/dL [facility] CNPNon 07-04-2024 CNPN Normal [facility] CNPNon 07-02-2024 CNPN Normal [facility] Influenza virus A and B and SARS-CoV-2 (COVID-19) identified SUMIT+probe Nom (Resp)on 07-01-2024 FLUAV RNA SUMIT+probe Ql (Resp) Detected Abnormal Not Detected [facility] FLUBV RNA SUMIT+probe Ql (Resp) Not detected Not Detected [facility] Interpretation and review of laboratory results Abnormal [facility] SARS-CoV-2 (COVID-19) RNA SUMIT+probe Ql (Resp) Not detected Not Detected [facility] This assay is an FDA-cleared, in vitro diagnostic nucleic acid amplification test for the qualitative detection and differentiation of SARS CoV-2/ Influenza A/B from nasopharyngeal specimens collected from individuals with signs and symptoms of respiratory tract infections, and has been validated for use at [facility]. Negative results do not preclude COVID-19/ Influenza A/B infections and should not be used as the sole basis for diagnosis, treatment, or other management decisions. Testing for SARS CoV-2 is recommended only for patients who meet current clinical and/or epidemiological criteria defined by federal, state, or local public health directives. [facility] FLUAV RNA SUMIT+probe Ql (Resp) Detected Abnormal Not Detected [facility] Comment on above: Order Comment: OVER is reported when the result is greater than the clinically reportable range. Performed By: #### 5 8077-9 #### JACQUELYN LOPEZ ([id number]) [facility] ([facility]) [address] [place] [address] FLUBV RNA SUMIT+probe Ql (Resp) Not detected Normal Not Detected [facility] Comment on above: Order Comment: OVER is reported when the result is greater than the clinically reportable range. Performed By: #### 5 8077-9 #### JACQUELYN LOPEZ ([id number]) [facility] ([facility]) [address] [place] [address] SARS-CoV-2 (COVID-19) RNA SUMIT+probe Ql (Resp) Not detected Normal Not Detected [facility] Comment on above: Order Comment: OVER is reported when the result is greater than the clinically reportable range. Performed By: #### 5 8077-9 #### VALLADARES RAMESHJUAREZ ([id number]) [facility] ([facility]) [address] [place] [address] XR CHEST 2 VIEWSon XR CHEST 2 VIEWS STUDY: Chest Radiographs; 07/01/2024 at 8:35 PM. INDICATION: Fever and cough.. COMPARISON: XR chest 10/23/2020. ACCESSION NUMBER(S): [id number] ORDERING CLINICIAN: SIXTO MYERS TECHNIQUE: Frontal and lateral chest. FINDINGS: CARDIOMEDIASTINAL SILHOUETTE: Cardiomediastinal silhouette is normal in size and configuration. LUNGS: Lungs are clear. ABDOMEN: No remarkable upper abdominal findings. BONES: No acute osseous changes. IMPRESSION: No focal pulmonary pathology. Signed by Leo Paris M.D. Normal [facility] XR Chest 2 Viewson No focal pulmonary pathology. Signed by Leo Paris M.D. TELERADIOLOGY STUDY: Chest Radiographs; 07/01/2024 at 8:35 PM. INDICATION: Fever and cough.. COMPARISON: XR chest 10/23/2020. ACCESSION NUMBER(S): [id number] ORDERING CLINICIAN: SIXTO MYERS TECHNIQUE: Frontal and lateral chest. FINDINGS: CARDIOMEDIASTINAL SILHOUETTE: Cardiomediastinal silhouette is normal in size and configuration. LUNGS: Lungs are clear. ABDOMEN: No remarkable upper abdominal findings. BONES: No acute osseous changes. TELERADIOLOGY Leo Paris MD - 07/01/2024 STUDY: Chest Radiographs; 07/01/2024 at 8:35 PM. INDICATION: Fever and cough.. COMPARISON: XR chest 10/23/2020. ACCESSION NUMBER(S): [id number] ORDERING CLINICIAN: SIXTO MYERS TECHNIQUE: Frontal and lateral chest. FINDINGS: CARDIOMEDIASTINAL SILHOUETTE: Cardiomediastinal silhouette is normal in size and configuration. LUNGS: Lungs are clear. ABDOMEN: No remarkable upper abdominal findings. BONES: No acute osseous changes. IMPRESSION: No focal pulmonary pathology. Signed by Leo Paris M.D. [facility] Work Phone: Radiology Study observation (narrative) [facility] Work Phone: XR Chest 2 ViewsOrdered By: Leo Paris on 07-01-2024 [facility] Work Phone: CNPNon 06-28-2024 CNPN Normal [facility] CNPNon 06-25-2024 CNPN Normal [facility] CNPNon 06-22-2024 CNPN Normal [facility] CNPNon 06-19-2024 CNPN Normal [facility] nuchal translucency me asured by Estevan 06-15-2024 Indication First trimester anatomic survey Maternal obesity, BMI >30, Diabetes mellitus Impression The patient is referred for a first trimester anatomy scan including nuchal translucency measurement as clinically indicated. - Single, live, intrauterine . - Milano rump length measurement is consistent with the [...] view: suboptimal 4-chamber view with color: suboptimal 7-ijqsjb-uklxkrw view: suboptimal Abdominal cord insertion: normal Stomach: [...] Read By: Pooja Latham M.D. MATERNAL MEDICINE [facility] Radiology Study observation (narrative) [facility] [id number] PLUSon 06-15-2024 Cell-free DNA./Cell-free DNA.total Dosage of chromosome-specific cfDNA (cfDNA) [Molar fraction] 15% Normal [facility] Comment on above: Order Comment: Speci men Type: BLOOD SPECIMENOrdering Facility: [facility] Address: [address] [place] [address] Performed By: #### M AT21 ####[email or web address] LABCLIA [id number] [place] [address] Chr 13+18+21+X+Y aneuploidy Dosage of chromosome-specific cfDNA Ql (cfDNA) Negative Normal [facility] Comment on above: Order Comment: Speci men Type: BLOOD SPECIMENOrdering Facility: [facility] Address: [address] [place] [address] Performed By: #### M AT21 ####[facility] LABCLIA [id number] [place] [address] Chr 21 trisomy Dosage of chromosome-specific cfDNA Ql (cfDNA) Negative Normal [facility] Comment on above: Order Comment: Speci men Type: BLOOD SPECIMENOrdering Facility: [facility] Address: [address] [place] [address] Performed By: #### M AT21 ####[facility] LABCLIA [id number] [place] [address] Chr X and Y aneuploidy risk Sequencing Ql (cfDNA) [Interp] Not detected Normal [facility] Comment on above: Order Comment: Speci men Type: BLOOD SPECIMENOrdering Facility: [facility] Address: [address] [place] [address] Result Comment: Not DetectedNot Detected Performed By: #### M AT21 ####[facility] LABCLIA [id number] [place] [id number] Citation Jorge (Reference lab test) Comment Normal [facility] Comment on above: Order Comment: Speci men Type: BLOOD SPECIMENOrdering Facility: [facility] Address: [address] [place] [address] Result Comment: 1. P gabriela ROBINS, et al. Jaqueline Med. 2012;14(3):296-305.2. Shellie LIAO, et al. Prenat Diag. 2013;33(6):591-597.3. Paul C, et al. Clin Chem. 2015 Apr;61(4):608-616.4. Shira ROBINS et al. Jaqueline Med. 2011;13(11):913-920.5. ACOG/SMFM Practice Bulletin No. 226, Mar 2020. Performed By: #### M AT21 ####[facility] LABCLIA [id number] [place] [address] Gestational age Estimated from conception date [place] Normal [facility] Comment on above: Order Comment: Speci men Type: BLOOD SPECIMENOrdering Facility: [facility] Address: [address] [place] [address] Performed By: #### M AT21 ####[email or web address] LABCLIA [id number] [place] [address] GESTATIONALAGE AGE > OR = 9W Yes Normal [facility] Comment on above: Order Comment: Speci men Type: BLOOD SPECIMENOrdering Facility: [facility] Address: [address] [place] [address] Performed By: #### M AT21 ####[email or web address] LABCLIA [id number] [place] [address] Laboratory comment Jorge (Report) Comment Normal [facility] Comment on above: Order Comment: Speci men Type: BLOOD SPECIMENOrdering Facility: [facility] Address: [address] [place] [address] Result Comment: The MaterniT(R) 21 PLUS laboratory-developed test (LDT)analyzes circulating cell-free DNA from a maternal bloodsample. This test is used for screening purposes and notdiagnostic. Clinical correlation is recommended. Validationdata on twin pregnancies is limited and the ability of thistest to detect aneuploidy in higher multiple gestations hasnot yet been validated. Performed By: #### M AT21 ####[email or web address] LABCLIA [id number] [place] [address] director of ancillary services name Nom (Provider) Comment Normal [facility] Comment on above: Order Comment: Speci men Type: BLOOD SPECIMENOrdering Facility: [facility] Address: [address] [place] [address] Result Comment: This specimen showed an expected representation ofchromosome 21, 18 and 13 material. Clinical correlation issuggested.CommentValdemar Kearns MD, PhD, Director, [employer] Performed By: #### M AT21 ####[facility] LABCLIA [id number] [place] [address] LIMITATIONS OF THE TEST Comment Normal [facility] Comment on above: Order Comment: Speci men Type: BLOOD SPECIMENOrdering Facility: [facility] Address: [address] [place] [address] Result Comment: Whil e the results of these tests are highly [...] and Fragmin(R)). Performed By: #### M AT21 ####[email or web address] LABCLIA [id number] [place] [address] Monosomy X risk Dosage of chromosome-specific cfDNA Ql (Plasma cell-free+WBC DNA) [Interp] Not detected Normal [facility] Comment on above: Order Comment: Speci men Type: BLOOD SPECIMENOrdering Facility: [facility] Address: [address] [place] [address] Performed By: #### M AT21 ####[email or web address] LABCLIA [id number] [place] [address] NEGATIVE PREDICTIVE VALUE Note Normal [facility] Comment on above: Order Comment: Speci men Type: BLOOD SPECIMENOrdering Facility: [facility] Address: [address] [place] [address] Result Comment: The Negative Predictive Value (NPV) for trisomy 21, 18, and13 is greater than 99%. The NPV for SCA and ESS cannot becalculated as SCA and ESS are only reported when anabnormality is detected. Performed By: #### M AT21 ####[email or web address] LABCLIA [id number] [place] [id number] NOTE Comment Normal [facility] Comment on above: Order Comment: Speci men Type: BLOOD SPECIMENOrdering Facility: [facility] Address: [address] [place] [address] Result Comment: See NotesGotGame, [employer] is a subsidiary of [employer], using the brand [employer]. This test wasdeveloped and its performance characteristics determined byEfficient Drivet[employer]. It has not been cleared or approved by the Foodand Drug Administration. This laboratory is certified underthe Clinical Laboratory Improvement Amendments (CLIA) asqualified to perform high complexity clinical laboratorytesting and accredited by the College of AmericanPathologists (CAP).If there is future clinical need for adding MaterniT GENOMEtesting, this specimen will be available until term.[facility] samples will not be retained beyond 60 days.[place] patients will have to send a new sample forre-sequencing (LCA Test Code: 186577). Performed By: #### M AT21 ####SEQUYoicsM-[facility] LABN[facility] [id number] [place] [address] PERFORMANCE CHARACTERISTICS Note Normal [facility] Comment on above: Order Comment: Speci men Type: BLOOD SPECIMENOrdering Facility: [facility] Address: [address] [place] [address] Result Comment: ! Sex ! Accuracy: 99.4% !! !! Region (associated syndrome) ! Est. Sens# ! Est. Spec !! !! Trisomy 21 (Down Syndrome) ! 99.1% ! 99.9% !! !! Trisomy 18 (Pham Syndrome) ! >99.9% ! 99.6% !! !! Trisomy 13 (Patau Syndrome) ! 91.7% ! 99.7% !! !! Sex Chromosome Aneuploidies## ! 96.2% ! 99.7% !! !* As reported in [facility] database nstd37[https://www.ncbi.nlm.nih.gov/dbvar/studies/nstd37/ ]# Estimated Sensitivity. Sensitivity estimated across theobserved size distribution of each syndrome [per ISCChicopeetabase nstd37] and across the range of fractionsobserved in routine clinical NIPT. Actual sensitivity canalso be influenced by other factors such as the size of theevent, total sequence counts, amplification bias, orsequence bias.## [place] gestation only. Performed By: #### M AT21 ####Moncai LABCLIA [id number] [place] [address] POSITIVE PREDICTIVE VALUE N/A Normal [facility] Comment on above: Order Comment: Gume escobedo Type: BLOOD SPECIMENOrdering Facility: [facility] Address: [address] [place] [address] Performed By: #### M AT21 ####2DOLife.com[employer]P LABCLIA [id number] [place] [address] Reference Lab Test Method Comment Normal [facility] Comment on above: Order Comment: Gume escobedo Type: BLOOD SPECIMENOrdering Facility: [facility] Address: [address] [place] [address] Result Comment: See NotesCirculating cell-free DNA was [...] 8q, 5p, 4p, 1p) and trisomy of [id number] and 22. Performed By: #### M AT21 ####BabyFirstTVRP LABCLIA [id number] [place] [address] Sex Dosage of chromosome-specific cfDNA Nom (cfDNA) Comment Normal [facility] Comment on above: Order Comment: Speci men Type: BLOOD SPECIMENOrdering Facility: [facility] Address: [address] [place] [address] Result Comment: Cons istent with Female Performed By: #### M AT21 ####[email or web address]-OmnidriveCORP LABCLIA [id number] [place] [address] Test performance information Jorge (Unsp spec) Comment Normal [facility] Comment on above: Order Comment: Speci men Type: BLOOD SPECIMENOrdering Facility: [facility] Address: [address] [place] [address] Result Comment: The performance characteristics of the MaterniT(R) 21 PLUSlaboratory-developed test (LDT) have been determined in aclinical validation study with women at increasedrisk for chromosomal aneuploidy.[1-4] Performed By: #### M AT21 ####2DOLife.[employer]P LABCLIA [id number] [place] [address] Trisomy 13 risk Dosage of chromosome-specific cfDNA Ql (cfDNA) [Interp] Negative Normal [facility] Comment on above: Order Comment: Speci men Type: BLOOD SPECIMENOrdering Facility: [facility] Address: [address] [place] [address] Performed By: #### M AT21 ####[email or web address]-LABC[facility] LABCLIA [id number] [place] [address] Trisomy 18 risk Dosage of chromosome-specific cfDNA Ql (Plasma cell-free+WBC DNA) [Interp] Negative Normal [facility] Comment on above: Order Comment: Speci men Type: BLOOD SPECIMENOrdering Facility: [facility] Address: [address] [place] [id number] Performed By: #### M AT21 ####Newzulu [facility] LABCLIA [id number] [place] [address] CNPNon 06-11-2024 CNPN Normal [facility] CNOVon 06-07-2024 CNOV Normal [facility] HEMOGLOBIN A1C (POC)on 06-07 HbA1c (Bld) [Mass fraction] 7.9 % Abnormal 4.3 - 5.6 % [facility] Comment on above: Location:[facility], [address] [place] [address], [facility] Point of care (POC) Hemoglobin A1c [...] specific diabetes management situations: The POC device fitness and wellness instructor provides a normal range of 4.2% to 6.5% for the HGBA1C POC test. However, the [place] Diabetes Association guidelines indicate that patients with [...] Interpretation and review of laboratory results Abnormal [facility] CNPNon 06-05-2024 CNPN Normal [facility] CNPNon 06-01-2024 CNPN Normal [facility] URINE OB DIP B/Oon Glucose Ql (U) Negative Neg mg/dL [facility] Interpretation and review of laboratory results Normal [facility] Protein.monoclonal (U) [Mass/Vol] Negative Neg mg/dL [facility] CBC W Auto Differential pane l (Bld)on 05-21-2024 Basophils (Bld) [#/Vol] 0.05 10*3/uL [facility] Basophils/100 WBC (Bld) 0.6 % 0.0 - 2.0 % [facility] Eosinophils (Bld) [#/Vol] 0.18 10*3/uL [facility] Eosinophils/100 WBC (Bld) 2.3 % 0.0 - 6.0 % [facility] Erythrocyte distribution width (RBC) [Ratio] 12.1 % 11.5 - 14.5 % [facility] Hematocrit (Bld) [Volume fraction] 41.7 % 36.0 - 46.0 % [facility] Hemoglobin (Bld) [Mass/Vol] 14.3 g/dL 12.0 - 16.0 g/dL [facility] Immature granulocytes (Bld) [#/Vol] 0.01 10*3/uL [facility] Immature granulocytes/100 WBC (Bld) 0.1 % 0.0 - 0.9 % [facility] Comment on above: Immature Granulocyte Count (IG) includes promyelocytes, myelocytes and metamyelocytes but does not include bands. Percent differential counts (%) should be interpreted in the context of the absolute cell counts (cells/UL). Lymphocytes (Bld) [#/Vol] 3.2 10*3/uL [facility] Lymphocytes/100 WBC (Bld) 41.3 % 13.0 - 44.0 % [facility] MCH (RBC) [Entitic mass] 28.9 pg 26.0 - 34.[address] [facility] MCHC (RBC) [Mass/Vol] 34.3 g/dL 32.0 - 36.0 g/dL [facility] MCV (RBC) [Entitic vol] 84 fL 80 - [address] [facility] Monocytes (Bld) [#/Vol] 0.49 10*3/uL [facility] Monocytes/100 WBC (Bld) 6.3 % 2.0 - 10.0 % [facility] Neutrophils (Bld) [#/Vol] 3.81 10*3/uL [facility] Comment on above: Percent differential counts (%) should be interpreted in the context of the absolute cell counts (cells/uL). Neutrophils/100 WBC (Bld) 49.4 % 40.0 - 80.0 % [facility] Nucleated RBC/100 WBC (Bld) [Ratio] 0 % [facility] Platelets (Bld) [#/Vol] 299 10*3/uL [facility] RBC (Bld) [#/Vol] 4.94 10*6/uL [facility] WBC (Bld) [#/Vol] 7.7 10*3/uL [facility] Basophils (Bld) [#/Vol] 0.05 x10*3/uL Normal 0.00-0.10 [facility] Comment on above: Performed By: #### 5 7021-8 #### JACQUELYN LOPEZ ([id number]) [facility] ([facility]) [address] [place] [address] 65028 Basophils/100 WBC (Bld) 0.6 % Normal 0.0-2.0 [facility] Comment on above: Performed By: #### 5 7021-8 #### JACQUELYN LOPEZ ([id number]) [facility] ([facility]) [address] [place] [address] 95948 Eosinophils (Bld) [#/Vol] 0.18 x10*3/uL Normal 0.00-0.70 [facility] Comment on above: Performed By: #### 5 7021-8 #### JACQUELYN LOPEZ ([id number]) [facility] ([facility]) [address] [place] [address] 63761 Eosinophils/100 WBC (Bld) 2.3 % Normal 0.0-6.0 [facility] Comment on above: Performed By: #### 5 7021-8 #### JACQUELYN LOPEZ ([id number]) [facility] ([facility]) [address] [place] [address] 15383 Erythrocyte distribution width (RBC) [Ratio] 12.1 % Normal 11.5-14.5 [facility] Comment on above: Performed By: #### 5 7021-8 #### JACQUELYN LOPEZ ([id number]) [facility] ([facility]) [address] [place] [address] 22437 Hematocrit (Bld) [Volume fraction] 41.7 % Normal 36.0-46.0 [facility] Comment on above: Performed By: #### 5 7021-8 #### JACQUELYN LOPEZ ([id number]) [facility] ([facility]) [address] [place] [address] 42796 Hemoglobin (Bld) [Mass/Vol] 14.3 g/dL Normal 12.0-16.0 [facility] Comment on above: Performed By: #### 5 7021-8 #### JACQUELYN LOPEZ ([id number]) [facility] ([facility]) [address] [place] [address] 22719 Immature granulocytes (Bld) [#/Vol] 0.01 x10*3/uL Normal 0.00-0.70 [facility] Comment on above: Performed By: #### 5 7021-8 #### JACQUELYN LOPEZ ([id number]) [facility] ([facility]) [address] [place] [address] 00543 Immature granulocytes/100 WBC (Bld) 0.1 % Normal 0.0-0.9 [facility] Comment on above: Result Comment: Kaela ture Granulocyte Count (IG) includes promyelocytes, myelocytes and metamyelocytes but does not include bands. Percent differential counts (%) should be interpreted in the context of the absolute cell counts (cells/UL). Performed By: #### 5 7021-8 #### JACQUELYN LOPEZ ([id number]) [facility] ([facility]) [address] [place] [address] 56363 Lymphocytes (Bld) [#/Vol] 3.20 x10*3/uL Normal 1.20-4.80 [facility] Comment on above: Performed By: #### 5 7021-8 #### JACQUELYN LOPEZ ([id number]) [facility] ([facility]) [address] [place] [address] 25324 Lymphocytes/100 WBC (Bld) 41.3 % Normal 13.0-44.0 [facility] Comment on above: Performed By: #### 5 7021-8 #### JACQUELYN LOPEZ ([id number]) [facility] ([facility]) [address] [place] [address] 14842 MCH (RBC) [Entitic mass] 28.9 pg Normal 26.0-34.0 [facility] Comment on above: Performed By: #### 5 7021-8 #### JACQUELYN LOPEZ ([id number]) [facility] ([facility]) [address] [place] [address] 85378 MCHC (RBC) [Mass/Vol] 34.3 g/dL Normal 32.0-36.0 [facility] Comment on above: Performed By: #### 5 7021-8 #### JACQUELYN LOPEZ ([id number]) [facility] ([facility]) [address] [place] [address] 85627 MCV (RBC) [Entitic vol] 84 fL Normal 80-100 [facility] Comment on above: Performed By: #### 5 7021-8 #### JACQUELYN LOPEZ ([id number]) [facility] ([facility]) [address] [place] [address] 66630 Monocytes (Bld) [#/Vol] 0.49 x10*3/uL Normal 0.10-1.00 [facility] Comment on above: Performed By: #### 5 7021-8 #### JACQUELYN LOPEZ ([id number]) [facility] ([facility]) [address] [place] [address] 55557 Monocytes/100 WBC (Bld) 6.3 % Normal 2.0-10.0 [facility] Comment on above: Performed By: #### 5 7021-8 #### JACQUELYN LOPEZ ([id number]) [facility] ([facility]) [address] [place] [address] 61933 Neutrophils (Bld) [#/Vol] 3.81 x10*3/uL Normal 1.20-7.70 [facility] Comment on above: Result Comment: Perc ent differential counts (%) should be interpreted in the context of the absolute cell counts (cells/uL). Performed By: #### 5 7021-8 #### JACQUELYN LOPEZ ([id number]) [facility] ([facility]) [address] [place] [address] 55742 Neutrophils/100 WBC (Bld) 49.4 % Normal 40.0-80.0 [facility] Comment on above: Performed By: #### 5 7021-8 #### JACQUELYN LOPEZ ([id number]) [facility] ([facility]) [address] [place] [address] 85531 Nucleated RBC/100 WBC (Bld) [Ratio] 0.0 /100 WBCs Normal 0.0-0.0 [facility] Comment on above: Performed By: #### 5 7021-8 #### JACQUELYN LOPEZ ([id number]) [facility] ([facility]) [address] [place] [address] 48573 Platelets (Bld) [#/Vol] 299 x10*3/uL Normal 150-450 [facility] Comment on above: Performed By: #### 5 7021-8 #### JACQUELYN LOPEZ ([id number]) [facility] ([facility]) [address] [place] [address] 52190 RBC (Bld) [#/Vol] 4.94 x10*6/uL Normal 4.00-5.20 [facility] Comment on above: Performed By: #### 5 7021-8 #### JACQUELYN LOPEZ ([id number]) [facility] ([facility]) [address] [place] [address] 61283 WBC (Bld) [#/Vol] 7.7 x10*3/uL Normal 4.4-11.3 [facility] Comment on above: Performed By: #### 5 7021-8 #### JACQUELYN LOPEZ ([id number]) [facility] ([facility]) [address] [place] [address] 07782 Choriogonadotropin.beta subu niton 05-21-2024 [place] [address] m[IU]/mL High <5 U [facility] Comment on above: Order Comment: OVER [...] elevation. Performed By: #### 5 8077-9 #### VALLADARES JOHN ([id number]) [facility] ([facility]) [address] [place] [address] Comprehensive metabolic 2000 panelon 05-21-2024 Albumin BCP dye [Mass/Vol] 4.2 g/dL 3.4 - 5.0 g/dL [facility] ALP [Catalytic activity/Vol] 49 U/L 33 - 110 U/L [facility] ALT With P-5'-P [Catalytic activity/Vol] 20 U/L 7 - 45 U/L [facility] Comment on above: Patients treated wit h Sulfasalazine may generate falsely decreased results for ALT. Anion gap [Moles/Vol] 13 mmol/L 10 - 2 0 mmol/L [facility] AST With P-5'-P [Catalytic activity/Vol] 10 U/L 9 - 39 U/L [facility] Bilirubin [Mass/Vol] 0.5 mg/dL 0.0 - 1 .2 mg/dL [facility] Calcium [Mass/Vol] 9.8 mg/dL 8.6 - 10. 3 mg/dL [facility] Chloride [Moles/Vol] 103 mmol/L 98 - 10 7 mmol/L [facility] CO2 [Moles/Vol] 25 mmol/L 21 - 32 mmol/L [facility] Creatinine [Mass/Vol] 0.53 mg/dL 0.50 - 1.05 mg/dL [facility] eGFR - PINF [facility] Comment on above: Calculations of ascencion mated GFR are performed using the 2020 CKD-EPI Study Refit equation without the race variable for the IDMS-Traceable creatinine methods. https://jasn.asnjournals.org/content/early/ASN.129739 0690 Glucose [Mass/Vol] 150 mg/dL High 74 - 99 mg/dL [facility] Interpretation and review of laboratory results Abnormal [facility] Potassium [Moles/Vol] 3.7 mmol/L 3.5 - 5.3 mmol/L [facility] Protein [Mass/Vol] 7.4 g/dL 6.4 - 8.2 g/dL [facility] Sodium [Moles/Vol] 137 mmol/L 136 - 145 mmol/L [facility] Urea nitrogen [Mass/Vol] 14 mg/dL 6 - 23 mg/dL [facility] Albumin BCP dye [Mass/Vol] 4.2 g/dL Normal 3.4-5.0 [facility] Comment on above: Performed By: #### 2 4323-8 #### JACQUELYN LOPEZ ([id number]) [facility] ([facility]) [address] [place] [address] ALP [Catalytic activity/Vol] 49 U/L Normal 33-110 [facility] Comment on above: Performed By: #### 2 4323-8 #### JACQUELYN LOPEZ ([id number]) [facility] ([facility]) [address] [place] [address] 61138 ALT With P-5'-P [Catalytic activity/Vol] 20 U/L Normal 7-45 [facility] Comment on above: Result Comment: Shantal ents treated with Sulfasalazine may generate falsely decreased results for ALT. Performed By: #### 2 4323-8 #### JACQUELYN LOPEZ ([id number]) [facility] ([facility]) [facility] [place] [address] Anion gap [Moles/Vol] 13 mmol/L Normal 10-20 [facility] Comment on above: Performed By: #### 2 4323-8 #### JACQUELYN LOPEZ ([id number]) [facility] ([facility]) [facility] [place] [address] AST With P-5'-P [Catalytic activity/Vol] 10 U/L Normal 9-39 [facility] Comment on above: Performed By: #### 2 4323-8 #### JACQUELYN LOPEZ ([id number]) [facility] ([facility]) [address] [place] [address] Bilirubin [Mass/Vol] 0.5 mg/dL Normal 0.0-1.2 [facility] Comment on above: Performed By: #### 2 4323-8 #### JACQUELYN OLPEZ ([id number]) [facility] ([facility]) [address] [place] [address] Calcium [Mass/Vol] 9.8 mg/dL Normal 8.6-10.3 [facility] Comment on above: Performed By: #### 2 4323-8 #### JACQUELYN LOPEZ ([id number]) [facility] ([facility]) [address] [place] [address] Chloride [Moles/Vol] 103 mmol/L Normal 98-107 [facility] Comment on above: Performed By: #### 2 4323-8 #### JACQUELYN LOPEZ ([id number]) [facility] ([facility]) [address] [place] [address] CO2 [Moles/Vol] 25 mmol/L Normal 21-32 [facility] Comment on above: Performed By: #### 2 4323-8 #### JACQUELYN LOPEZ ([id number]) [facility] ([facility]) [address] [place] [address] Creatinine [Mass/Vol] 0.53 mg/dL Normal 0.50-1.05 [facility] Comment on above: Performed By: #### 2 4323-8 #### JACQUELYN LOPEZ ([id number]) [facility] ([facility]) [facility] [place] [address] GFR/1.73 sq M.predicted MDRD (S/P/Bld) [Vol rate/Area] mL/min/{1.73_m2} Normal >60 [facility] Comment on above: Result Comment: Calc ulations of estimated GFR are performed using the 2020 CKD-EPI Study Refit equation without the race variable for the IDMS-Traceable creatinine methods. https://jasn.asnjournals.org/content//ASN.527717 4098 Performed By: #### 2 4323-8 #### JACQUELYN LOPEZ ([id number]) [facility] ([facility]) [address] [place] [address] 86820 Glucose [Mass/Vol] 150 mg/dL High 74-99 [facility] Comment on above: Performed By: #### 2 4323-8 #### JACQUELYN LOPEZ ([id number]) [facility] ([facility]) [address] [place] [address] 16093 Potassium [Moles/Vol] 3.7 mmol/L Normal 3.5-5.3 [facility] Comment on above: Performed By: #### 2 4323-8 #### JACQUELYN LOPEZ ([id number]) [facility] ([facility]) [address] [place] [address] 72253 Protein [Mass/Vol] 7.4 g/dL Normal 6.4-8.2 [facility] Comment on above: Performed By: #### 2 4323-8 #### JACQUELYN LOPEZ ([id number]) [facility] ([facility]) [address] [place] [address] 63748 Sodium [Moles/Vol] 137 mmol/L Normal 136-145 [facility] Comment on above: Performed By: #### 2 4323-8 #### JACQUELYN LOPEZ ([id number]) [facility] ([facility]) [address] [place] [address] 32600 Urea nitrogen [Mass/Vol] 14 mg/dL Normal 6-23 [facility] Comment on above: Performed By: #### 2 4323-8 #### JACQUELYN LOPEZ ([id number]) [facility] ([facility]) [address] [place] [address] 28812 HCG.beta subunit Qgabriela 2023 Interpretation and review of laboratory results Abnormal [facility] Total HCG measuremen t is performed using the [place] Apparent Access Immunoassay which detects intact HCG and free beta HCG subunit. This test is not indicated for use as a tumor marker. HCG testing is performed using a different test methodology at [facility] than other [facility]. Direct result comparison should only be made within the same method. [facility] Urinalysis complete W Reflex Culture panel (U)on 05-21-2024 Appearance (U) Turbid Abnormal Clear [facility] Bacteria Auto (Urine sed) [#/Area] 2+ Abnormal NONE SEEN /HPF [facility] Bilirubin (U) [Mass/Vol] Negative NEGATIVE [facility] Color (U) Light-Yellow Light-Yellow , Yellow, Dark-Yellow [facility] Epithelial cells.squamous Auto (Urine sed) [#/Area] 10-25 (FEW) Reference range not established. /HPF [facility] Glucose Auto test strip (U) [Mass/Vol] OVER (4+) Abnormal Normal mg/dL [facility] Interpretation and review of laboratory results Abnormal [facility] Ketones (U) [Mass/Vol] Negative NEGATIVE mg/dL [facility] Leukocyte clumps Auto (Urine sed) [#/Area] RARE Reference range not established. /HPF [facility] Leukocyte esterase Auto test strip Ql (U) Negative NEGATIVE [facility] Mucus Auto (Urine sed) [#/Area] FEW Reference range not established. /LPF [facility] Nitrite Auto test strip Ql (U) Negative NEGATIVE [facility] pH (U) 6 [pH] 5.0, 5.5, 6.0, 6.5, 7.0, 7.5, 8.0 [facility] Protein (U) [Mass/Vol] 10 (TRACE) NEGATIVE, 10 (TRACE), 20 (TRACE) mg/dL [facility] RBC (U) [#/Vol] Negative NEGATIVE [facility] RBC Auto (Urine sed) [#/Area] 1-2 NONE, 1-2, 3-5 /HPF [facility] Specific gravity (U) [Rel density] 1.029 1.005 - 1.035 [facility] Urobilinogen (U) [Mass/Vol] 4 (2+) Abnormal Normal mg/dL [facility] Comment on above: Some pigments and me dications may cause a false positive urobilinogen. WBC Auto (Urine sed) [#/Area] 1-5 1-5, NONE /HPF [facility] OVER is reported whe n the result is greater than the clinically reportable range. [facility] Appearance (U) Turbid Normal Clear [facility] Comment on above: Order Comment: OVER is reported when the result is greater than the clinically reportable range. Performed By: #### 5 8077-9 #### JACQUELYN LOPEZ ([id number]) [facility] ([facility]) [address] [place] [address] Bacteria Auto (Urine sed) [#/Area] 2+ /HPF Abnormal NONE SEEN [facility] Comment on above: Performed By: #### 5 8077-9 #### JACQUELYN LOPEZ ([id number]) [facility] ([facility]) [address] [place] [address] Bilirubin (U) [Mass/Vol] Negative Normal NEGATIVE [facility] Comment on above: Order Comment: OVER is reported when the result is greater than the clinically reportable range. Performed By: #### 5 8077-9 #### JACQUELYN LOPEZ ([id number]) [facility] ([facility]) [address] [place] [address] Color (U) Light-Yellow Normal Light-Yellow , Yellow, Dark-Yellow [facility] Comment on above: Order Comment: OVER is reported when the result is greater than the clinically reportable range. Performed By: #### 5 8077-9 #### JACQUELYN LOPEZ ([id number]) [facility] ([facility]) [address] [place] [address] Epithelial cells.squamous Auto (Urine sed) [#/Area] 10-25 (FEW) Normal Reference range not established. [facility] Comment on above: Performed By: #### 5 8077-9 #### JACQUELYN LOPEZ ([id number]) [facility] H[facility]PITAL) [address] [place], [place] [address] Glucose Auto test strip (U) [Mass/Vol] OVER (4+) Abnormal Normal [facility] Comment on above: Order Comment: OVER is reported when the result is greater than the clinically reportable range. Performed By: #### 5 8077-9 #### JACQUELYN LOPEZ ([id number]) [facility] ([facility]) [address] [place], [place] [address] Ketones (U) [Mass/Vol] Negative Normal NEGATIVE [facility] Comment on above: Order Comment: OVER is reported when the result is greater than the clinically reportable range. Performed By: #### 5 8077-9 #### JACQUELYN LOPEZ ([id number]) [facility] ([facility]) [address] [place], [place] [address] Leukocyte clumps Auto (Urine sed) [#/Area] RARE Normal Reference range not established. [facility] Comment on above: Performed By: #### 5 8077-9 #### JACQUELYN LOPEZ ([id number]) [facility] ([facility]) [address] [place] [address] Leukocyte esterase Auto test strip Ql (U) Negative Normal NEGATIVE [facility] Comment on above: Order Comment: OVER is reported when the result is greater than the clinically reportable range. Performed By: #### 5 8077-9 #### JACQUELYN LOPEZ ([id number]) [facility] ([facility]) [address] [place] [address] Mucus Auto (Urine sed) [#/Area] FEW Normal Reference range not established. [facility] Comment on above: Performed By: #### 5 8077-9 #### JACQUELYN LOPEZ ([id number]) [facility] ([facility]) [address] [place] [address] Nitrite Auto test strip Ql (U) Negative Normal NEGATIVE [facility] Comment on above: Order Comment: OVER is reported when the result is greater than the clinically reportable range. Performed By: #### 5 8077-9 #### JACQUELYN LOPEZ ([id number]) [facility] ([facility]) [address] [place] [address] pH (U) 6.0 [pH] Normal 5.0, 5.5, 6.0, 6.5, 7.0, 7.5, 8.0 [facility] Comment on above: Order Comment: OVER is reported when the result is greater than the clinically reportable range. Performed By: #### 5 8077-9 #### JACQUELYN LOPEZ ([id number]) [facility] ([facility]) [address] [place] [address] Protein (U) [Mass/Vol] 10 (TRACE) Normal NEGATIVE, 10 (TRACE), 20 (TRACE) [facility] Comment on above: Order Comment: OVER is reported when the result is greater than the clinically reportable range. Performed By: #### 5 8077-9 #### JACQUELYN LOPEZ ([id number]) [facility] ([facility]) [address] [place] [address] RBC (U) [#/Vol] Negative Normal NEGATIVE [facility] Comment on above: Order Comment: OVER is reported when the result is greater than the clinically reportable range. Performed By: #### 5 8077-9 #### JACQUELYN LOPEZ ([id number]) [facility] ([facility]) [address] [place] [address] RBC Auto (Urine sed) [#/Area] 1-2 Normal NONE, 1-2, 3-5 [facility] Comment on above: Performed By: #### 5 8077-9 #### JACQUELYN LOPEZ ([id number]) [facility] ([facility]) [address] [place] [address] Specific gravity (U) [Rel density] 1.029 Normal 1.005-1.035 [facility] Comment on above: Order Comment: OVER is reported when the result is greater than the clinically reportable range. Performed By: #### 5 8077-9 #### JACQUELYN LOPEZ ([id number]) [facility] ([facility]) [address] [place] [address] Urobilinogen (U) [Mass/Vol] 4 (2+) Abnormal Normal [facility] Comment on above: Order Comment: OVER is reported when the result is greater than the clinically reportable range. Result Comment: Some pigments and medications may cause a false positive urobilinogen. Performed By: #### 5 8077-9 #### JACQUELYN LOPEZ ([id number]) [facility] ([facility]) [address] [place] [address] WBC Auto (Urine sed) [#/Area] 1-5 Normal 1-5, NONE [facility] Comment on above: Performed By: #### 5 8077-9 #### JACQUELYN LOPEZ ([id number]) [facility] ([facility]) [facility] [place] [address] hCG, quantitative, on 05-21-2024 [place] [address] m[IU]/mL High NIN U [facility] Comment on above: Low-level positive H [...] the HCG elevation. CNPNon 05-20-2024 CNPN Normal [facility]20[facility] 05-10-2024 CNPN Normal [facility] 05-09-2024 [facility] BACTERIAL VAGINOSIS NAATon 1 07-07-2023 Lactobacillus crispatus+gasseri+dez senii + Gardnerella vaginalis + Atopobium vaginae rRNA SUMIT+probe Ql (Vag fld) Detected Abnormal Not detected [facility] Comment on above: Order Comment: Speci men Type: SWABOrdering Facility: [facility] Address: [address] [place] [address] Performed By: #### 3 6902-5, BVAMP ####[facility] LABCLIA [id number] [place] [address] [place] Bacteria Ur Culton 4 Bacteria identified Cx Nom (U) ORGANISM ID: 1 10,000 -<50,000 CFU/ml Normal urogenital hima Streptococcus agalactiae (Group B streptococcus) was identified in this specimen, which is clinically relevant if the individual is . Normal [facility] Comment on above: Performed By: #### 6 30-4 ####[facility] LABCLIA [id number] [place] [address] [place] C. trachomatis+N. gonorrhoea e DNA SUMIT+probe Ql (Unsp spec)on 05-07-2024 C. trachomatis rRNA SUMIT+probe Ql (Unsp spec) Not detected Normal Not detected [facility] Comment on above: Order Comment: Speci men Type: SWABOrdering Facility: [facility] Address: [address] [place] [address] Performed By: #### 3 6902-5, BVAMP ####[facility] LABCLIA [id number] [place] [address] [place] N. gonorrhoeae rRNA SUMIT+probe Ql (Unsp spec) Not detected Normal Not detected [facility] Comment on above: Order Comment: Speci men Type: SWABOrdering Facility: [facility] Address: [address] [place] [address] Performed By: #### 3 6902-5, BVAMP ####[facility] LABIA [id number] [place] [address] [place] JOSUÉ/TRICHOMONAS NAATon 1 07-07-2023 C. glabrata RNA SUMIT+probe Ql (Vag fld) Not detected Normal Not detected [facility] Comment on above: Order Comment: Speci men Type: SWABOrdering Facility: [facility] Address: [address] [place] [address] Performed By: #### C VTV ####[facility] LABIA [id number] [place] [address] [place] Josué sp DNA SUMIT+probe Ql (Vag fld) Not detected Normal Not detected [facility] Comment on above: Order Comment: Speci men Type: SWABOrdering Facility: [facility] Address: [address] [place] [address] Result Comment: The Josué species group target includes C. albicans, C. tropicalis, C. parapsilosis, and C. dubliniensis. Performed By: #### C VTV ####[facility] LABCLIA [id number] [address] [place] T. vaginalis DNA SUMIT+probe Ql (Unsp spec) Not detected Normal Not detected [facility] Comment on above: Order Comment: Speci men Type: SWABOrdering Facility: [facility] Address: [address] [place] [address] Performed By: #### C VTV ####[facility] LABCLIA [id number] [place] [address] [place] CARRIER SCREEN, STANDARDon 1 07-07-2023 CARRIER SCREEN RESULTS View results in Scanned Documents link when available. Normal [facility] Comment on above: Order Comment: Speci men Type: BLOOD SPECIMENOrdering Facility: [facility] Address: [address] [place] [address] Performed By: #### C RRSCN ####MYRIADCLIA [id number] [place] [address] CBC W Auto Differential pane l (Bld)on 05-07-2024 Basophils (Bld) [#/Vol] 0.04 10*3/uL Normal <0.11 [facility] Comment on above: Order Comment: Speci men Type: BLOOD SPECIMENOrdering Facility: [facility] Address: [address] [place] [address] Performed By: #### 5 7021-8 ####[facility] [id number] [place] [address] [place] Basophils/100 WBC (Bld) 0.7 % Normal [facility] Comment on above: Order Comment: Speci men Type: BLOOD SPECIMENOrdering Facility: [facility] Address: [address] [place] [address] Performed By: #### 5 7021-8 ####[facility]CLIA [id number] [place] [address] [place] Differential cell count method Nom (Bld) Auto Normal [facility] Comment on above: Order Comment: Speci men Type: BLOOD SPECIMENOrdering Facility: [facility] Address: [address] [place] [address] Performed By: #### 5 7021-8 ####[facility]LL[facility]LAUSM[facility] [id number] [place] [address] [place] Eosinophils (Bld) [#/Vol] 0.14 10*3/uL Normal <0.46 [facility] Comment on above: Order Comment: Speci men Type: BLOOD SPECIMENOrdering Facility: [facility] Address: [address] [place] [address] Performed By: #### 5 7021-8 ####[facility] [id number] [place] [address] [place] Eosinophils/100 WBC (Bld) 2.3 % Normal [facility] Comment on above: Order Comment: Speci men Type: BLOOD SPECIMENOrdering Facility: [facility] Address: [address] [place] [address] Performed By: #### 5 7021-8 ####[facility]LLASRUFINOA [id number] [place] [address] [place] Erythrocyte distribution width (RBC) [Ratio] 12.2 % Normal 11.5-15.0 [facility] Comment on above: Order Comment: Speci men Type: BLOOD SPECIMENOrdering Facility: [facility] Address: [address] [place] [address] Performed By: #### 5 7021-8 ####[facility] P[facility]LLASNCLI [id number] [place] [address] [place] Hematocrit (Bld) [Volume fraction] 42.1 % Normal 36.0-46.0 [facility] Comment on above: Order Comment: Speci men Type: BLOOD SPECIMENOrdering Facility: [facility] Address: [address] [place] [address] Performed By: #### 5 7021-8 ####[facility]LLASNCMOUNT[facility]STAR [facility]ALTH[facility] [id number] [place] [address] [place] Hemoglobin (Bld) [Mass/Vol] 14.8 g/dL Normal 11.5-15.5 [facility] Comment on above: Order Comment: Speci men Type: BLOOD SPECIMENOrdering Facility: [facility] Address: [address] [place] [address] Performed By: #### 5 7021-8 ####[facility]NCM[facility] [id number] [place] [address] [place] Immature granulocytes (Bld) [#/Vol] 10*3/uL Normal <0.10 [facility] Comment on above: Order Comment: Speci men Type: BLOOD SPECIMENOrdering Facility: [facility] Address: [address] [place] [address] Performed By: #### 5 7021-8 ####[facility] P[facility]LLASNCA [id number] [place] [address] [place] Immature granulocytes/100 WBC (Bld) 0.2 % Normal [facility] Comment on above: Order Comment: Speci men Type: BLOOD SPECIMENOrdering Facility: [facility] Address: [address] [place] [address] Performed By: #### 5 7021-8 ####[facility]LLASNCLIA [id number] [place] [address] [place] Lymphocytes (Bld) [#/Vol] 2.83 10*3/uL Normal 1.00-4.00 [facility] Comment on above: Order Comment: Speci men Type: BLOOD SPECIMENOrdering Facility: [facility] Address: [address] [place] [address] Performed By: #### 5 7021-8 ####[facility] VICKYMARIANNLIA [id number] [place] [address] [place] Lymphocytes/100 WBC (Bld) 46.6 % Normal [facility] Comment on above: Order Comment: Speci men Type: BLOOD SPECIMENOrdering Facility: [facility] Address: [address] [place] [address] Performed By: #### 5 7021-8 ####[facility] CENTERLIA [id number] [place] [address] [place] MCH (RBC) [Entitic mass] 28.7 pg Normal 26.0-34.0 [facility] Comment on above: Order Comment: Speci men Type: BLOOD SPECIMENOrdering Facility: [facility] Address: [address] [place] [address] Performed By: #### 5 7021-8 ####[facility]ENTERA [id number] [place] [address] [place] MCHC (RBC) [Mass/Vol] 35.2 g/dL Normal 30.5-36.0 [facility] Comment on above: Order Comment: Speci men Type: BLOOD SPECIMENOrdering Facility: [facility] Address: [address] [place] [address] Performed By: #### 5 7021-8 ####[facility] CENTERLIA [id number] [place] [address] [place] MCV (RBC) [Entitic vol] 81.7 fL Normal 80.0-100.0 [facility] Comment on above: Order Comment: Speci men Type: BLOOD SPECIMENOrdering Facility: [facility] Address: [address] [place] [address] Performed By: #### 5 7021-8 ####[facility] [id number] [place] [address] [place] Monocytes (Bld) [#/Vol] 0.37 10*3/uL Normal <0.87 [facility] Comment on above: Order Comment: Speci men Type: BLOOD SPECIMENOrdering Facility: [facility] Address: [address] [place] [address] Performed By: #### 5 7021-8 ####[facility] CENTERWNCLIA [id number] [place] [address] [place] Monocytes/100 WBC (Bld) 6.1 % Normal [facility] Comment on above: Order Comment: Speci men Type: BLOOD SPECIMENOrdering Facility: [facility] Address: [address] [place] [address] Performed By: #### 5 7021-8 ####[facility]ASNCLIA [id number] [place] [address] [place] Neutrophils (Bld) [#/Vol] 2.68 10*3/uL Normal 1.45-7.50 [facility] Comment on above: Order Comment: Speci men Type: BLOOD SPECIMENOrdering Facility: [facility] Address: [address] [place] [address] Performed By: #### 5 7021-8 ####[facility]LLASNCLIA [id number] [place] [address] [place] Neutrophils/100 WBC (Bld) 44.1 % Normal [facility] Comment on above: Order Comment: Speci men Type: BLOOD SPECIMENOrdering Facility: [facility] Address: [address] [place] [address] Performed By: #### 5 7021-8 ####[facility]NCLIA [id number] [place] [address] [place] Nucleated RBC (Bld) [#/Vol] 10*3/uL Normal <0.01 [facility] Comment on above: Order Comment: Speci men Type: BLOOD SPECIMENOrdering Facility: [facility] Address: [address] [place] [address] Performed By: #### 5 7021-8 ####[facility] HAROLDO MANJUNCKELSIE [id number] [place] [address] [place] Nucleated RBC/100 WBC (Bld) [Ratio] 0.0 /100 WBC Normal [facility] Comment on above: Order Comment: Speci men Type: BLOOD SPECIMENOrdering Facility: [facility] Address: [address] [place] [address] Performed By: #### 5 7021-8 ####[facility] P[facility]LLASNCLIRaymond [id number] [place] [address] [place] Platelet mean volume (Bld) [Entitic vol] 9.6 fL Normal 9.0-12.7 [facility] Comment on above: Order Comment: Speci men Type: BLOOD SPECIMENOrdering Facility: [facility] Address: [address] [place] [address] Performed By: #### 5 7021-8 ####[facility]ASNCLIA [id number] [place] [address] [place] Platelets (Bld) [#/Vol] 301 10*3/uL Normal 150-400 [facility] Comment on above: Order Comment: Speci men Type: BLOOD SPECIMENOrdering Facility: [facility] Address: [address] [place] [address] Performed By: #### 5 7021-8 ####[facility]NCLIA [id number] [place] [address] [place] RBC (Bld) [#/Vol] 5.15 10*6/uL Normal 3.90-5.20 [facility] Comment on above: Order Comment: Speci men Type: BLOOD SPECIMENOrdering Facility: [facility] Address: [address] [place], [place] [address] Performed By: #### 5 7021-8 ####[facility] HAROLDO NUNESNCLIA [id number] [place] [address] [facility] [place] WBC (Bld) [#/Vol] 6.07 10*3/uL Normal 3.70-11.00 [facility] Comment on above: Order Comment: Speci men Type: BLOOD SPECIMENOrdering Facility: [facility] Address: [address] [place] [address] Performed By: #### 5 7021-8 ####[facility] P[facility]LLASNCLIA [id number] [place] [address] [facility] Comprehensive metabolic 2000 panelOrdered By: Mikki Celaya on 05-07-2024 Albumin [Mass/Vol] 4.4 g/dL 3.9 - 4.9 g/dL [facility] ALP [Catalytic activity/Vol] 69 U/L 34 - 123 U/L [facility] ALT [Catalytic activity/Vol] 16 U/L 7 - 38 U/L [facility] Anion gap [Moles/Vol] 9 mmol/L 8 - 15 mmol/L [facility] AST [Catalytic activity/Vol] 10 U/L Low 13 - 35 U/L [facility] Bilirubin [Mass/Vol] 0.6 mg/dL 0.2 - 1 .3 mg/dL [facility] Calcium [Mass/Vol] 9.7 mg/dL 8.5 - 10. 2 mg/dL [facility] Chloride [Moles/Vol] 101 mmol/L 98 - 10 7 mmol/L [facility] CO2 [Moles/Vol] 23 mmol/L 22 - 30 mmol/L [facility] Creatinine [Mass/Vol] 0.43 mg/dL Low 0.58 - 0.96 mg/dL [facility] GFR/1.73 sq M.predicted among non-blacks MDRD (S/P/Bld) [Vol rate/Area] 135 mL/min/{1.73_m2} - PINF [facility] Comment on above: Estimated Glomerular Filtration [...] 216 mg/dL High 74 - 99 mg/dL [facility] Comment on above: The [place] Diabete s Association (ADA) provides guidance for [...] Standards of Medical Care in Diabetes 2016, [place] Diabetes Association. Diabetes Care. 2016.39(Suppl 1). Interpretation and review of laboratory results Abnormal [facility] Potassium [Moles/Vol] 3.9 mmol/L 3.7 - 5.1 mmol/L [facility] Protein [Mass/Vol] 7.3 g/dL 6.3 - 8.0 g/dL [facility] Sodium [Moles/Vol] 133 mmol/L Low 136 - 144 mmol/L [facility] Urea nitrogen [Mass/Vol] 7 mg/dL 7 - 21 mg/dL [facility] Comprehensive metabolic 2000 panelon 05-07-2024 Albumin [Mass/Vol] 4.4 g/dL Normal 3.9-4.9 [facility] Comment on above: Order Comment: Speci men Type: BLOOD SPECIMENOrdering Facility: [facility] Address: [address] [place], [place] [address] [address] Performed By: #### 2 4323-8 ####[facility]ODLANDSRYANNEVERNON [id number] [place] [address] [place] ALP [Catalytic activity/Vol] 69 U/L Normal 34-123 [facility] Comment on above: Order Comment: Speci men Type: BLOOD SPECIMENOrdering Facility: [facility] Address: [address] [place] [address] Performed By: #### 2 4323-8 ####[facility] HAROLDO MILLTOWNCLIA [id number] [place] [address] [place] ALT [Catalytic activity/Vol] 16 U/L Normal 7-38 [facility] Comment on above: Order Comment: Speci men Type: BLOOD SPECIMENOrdering Facility: [facility] Address: [address] [place] [address] Performed By: #### 2 4323-8 ####[facility] HAR[facility]DO MILLTOWNCLIA [id number] [place] [address] [place] Anion gap [Moles/Vol] 9 mmol/L Normal 8-15 [facility] Comment on above: Order Comment: Speci men Type: BLOOD SPECIMENOrdering Facility: [facility] Address: [address] [place] [address] Performed By: #### 2 4323-8 ####[facility] HAR[facility]DO MILLTOWNCLIA [id number] [place] [address] [place] AST [Catalytic activity/Vol] 10 U/L Low 13-35 [facility] Comment on above: Order Comment: Speci men Type: BLOOD SPECIMENOrdering Facility: [facility] Address: [address] [place] [address] Performed By: #### 2 4323-8 ####[facility] HAR[facility]DO MILLTOWNCLIA [id number] [place] [address] [place] Bilirubin [Mass/Vol] 0.6 mg/dL Normal 0.2-1.3 [facility] Comment on above: Order Comment: Speci men Type: BLOOD SPECIMENOrdering Facility: [facility] Address: [address] [place] [address] Performed By: #### 2 4323-8 ####[facility] CENTERWUTLI [id number] [place] [address] [place] Calcium [Mass/Vol] 9.7 mg/dL Normal 8.5-10.2 [facility] Comment on above: Order Comment: Speci men Type: BLOOD SPECIMENOrdering Facility: [facility] Address: [address] [place] [address] Performed By: #### 2 4323-8 ####[facility] CENTERWUTLIA [id number] [place] [address] [place] Chloride [Moles/Vol] 101 mmol/L Normal 98-107 [facility] Comment on above: Order Comment: Speci men Type: BLOOD SPECIMENOrdering Facility: [facility] Address: [address] [place] [address] Performed By: #### 2 4323-8 ####[facility] CENTERA [id number] [place] [address] [place] CO2 [Moles/Vol] 23 mmol/L Normal 22-30 [facility] Comment on above: Order Comment: Speci men Type: BLOOD SPECIMENOrdering Facility: [facility] Address: [address] [place] [address] Performed By: #### 2 4323-8 ####[facility] CENTERLIA [id number] [place] [address] [place] Creatinine [Mass/Vol] 0.43 mg/dL Low 0.58-0.96 [facility] Comment on above: Order Comment: Speci men Type: BLOOD SPECIMENOrdering Facility: [facility] Address: [address] [place] [address] Performed By: #### 2 4323-8 ####[facility]ENTERLIA [id number] [place] [address] [place] Creatinine and Glomerular filtration rate.predicted panel (S/P/Bld) 135 mL/min/1.73m??? Normal >=60 [facility] Comment on above: Order Comment: Gume escobedo Type: BLOOD SPECIMENOrdering Facility: [facility] Address: [address] [place] [address] Result Comment: Ascencion mated Glomerular Filtration Rate [...] actual GFR. Performed By: #### 2 4323-8 ####[facility] [id number] [place] [address] [place] Glucose [Mass/Vol] 216 mg/dL High 74-99 [facility] Comment on above: Order Comment: Gume escobedo Type: BLOOD SPECIMENOrdering Facility: [facility] Address: [address] [place] [address] Result Comment: The [place] Diabetes Association (ADA) provides guidance for cutoff [...] Standards of Medical Care in Diabetes 2016, [place] Diabetes Association. Diabetes Care. 2016.39(Suppl 1). Performed By: #### 2 4323-8 ####[facility] [id number] [place] [address] [place] Potassium [Moles/Vol] 3.9 mmol/L Normal 3.7-5.1 [facility] Comment on above: Order Comment: Speci men Type: BLOOD SPECIMENOrdering Facility: [facility] Address: [address] [place] [address] Performed By: #### 2 4323-8 ####[facility] [id number] [place] [address] [place] Protein [Mass/Vol] 7.3 g/dL Normal 6.3-8.0 [facility] Comment on above: Order Comment: Speci men Type: BLOOD SPECIMENOrdering Facility: [facility] Address: [address] [place] [address] Performed By: #### 2 4323-8 ####[facility] [id number] [place] [address] [place] Sodium [Moles/Vol] 133 mmol/L Low 136-144 [facility] Comment on above: Order Comment: Speci men Type: BLOOD SPECIMENOrdering Facility: [facility] Address: [address] [place] [address] Performed By: #### 2 4323-8 ####[facility] [id number] [place] [address] [place] Urea nitrogen [Mass/Vol] 7 mg/dL Normal 7-21 [facility] Comment on above: Order Comment: Speci men Type: BLOOD SPECIMENOrdering Facility: [facility] Address: [address] [place] [address] Performed By: #### 2 4323-8 ####[facility]ENTERWNCLIA [id number] [place] [address] [place] HBV surface Ag Ser Qlon 04-10 HBV surface Ag Ql (S) Negative Normal Negative [facility] Comment on above: Order Comment: Speci men Type: BLOOD SPECIMENOrdering Facility: [facility] Address: [address] [place] [address] Performed By: #### 5 195-3, 80478-7, 62983-1 ####[facility] LABCLIA [id number] [place] [address] [place] HCV Ab Ser Qlon 05-07-2024 HCV Ab Ql (S) Negative Normal Negative [facility] Comment on above: Order Comment: Speci men Type: BLOOD SPECIMENOrdering Facility: [facility] Address: [address] [place] [address] Result Comment: The result suggests no evidence of active infection with Hepatitis C virus. Should recent infection be suspected, repeat testing may be considered 4-6 weeks after this draw. Performed By: #### 1 6128-1 ####[facility] LABCLIA [id number] [place] [address] [place] HIV 1+2 Ab IA Qlon HIV 1 and 2 Ab IA.rapid Nom (S/P/Bld) Normal [facility] Comment on above: Order Comment: Speci men Type: BLOOD SPECIMENOrdering Facility: [facility] Address: [address] [place] [address] Result Comment: Test not indicated. Performed By: #### 5 195-3, 38851-5, 14457-8 ####[facility] LABIA [id number] [place] [address] [place] HIV 1+2 Ab+HIV1 p24 Ag IA Ql Non-Reactive Normal Nonreactive [facility] Comment on above: Order Comment: Speci men Type: BLOOD SPECIMENOrdering Facility: [facility] Address: [address] [place] [address] Performed By: #### 5 195-3, 15593-9, 51217-8 ####[facility] LABIA [id number] [place] [address] [place] HIV immunoassay testing algorithm interpretation (S/P/Bld) [Interp] Normal [facility] Comment on above: Order Comment: Speci men Type: BLOOD SPECIMENOrdering Facility: [facility] Address: [address] [place] [address] Result Comment: No e vidence of HIV-1 or HIV-2 infection. Should recent infection be suspected, repeat testing may be considered 2-3 weeks after this draw.[place] Rev. Code 3701.243(E): This information has been [...] or diagnoses. Performed By: #### 5 195-3, 84891-5, 85063-5 ####[facility] LABCLIA [id number] [place] [address] [place] PAP TESTon 05-07-2024 ADEQUACY Satisfactory for interpretation. Normal [facility] Comment on above: Order Comment: Speci men Type: FLUID SPECIMENOrdering Facility: [facility] Address: [address] [place] [address] Performed By: #### L [id number] ####[facility] LABCLIA [id number] [place] [address] [place] CASE REPORT Normal [facility] Comment on above: Order Comment: Speci men Type: FLUID SPECIMENOrdering Facility: [facility] Address: [address] [place] [address] Result Comment: Gyne cologic Cytology Report Case: [id number] Provider: Zayda Parker APRN.COOK HELPER MEAT Collected: 05/07/2024 10:48 AMOrdering Location: OB/Gynecology Received: 05/07/2024 12:13 PMFirst Screen: Jayne [place], [place], ASCPSpecimen: Pap Test, ThinPrep, Cervix Performed By: #### L [id number] ####[facility] LABCLIA [id number] [place] [address] [place] CLINICAL HISTORY, CYTOLOGY, PROFESSOR OF ENGINEERING Routine Exam Normal [facility] Comment on above: Order Comment: Speci men Type: FLUID SPECIMENOrdering Facility: [facility] Address: [address] [place] [address] Result Comment: Preg nant (Indicate Weeks) Performed By: #### L [id number] ####[facility] LABCLIA [id number] [place] [id number] [place] CYTOLOGY PAP OTHER INTERPRETATION Predominance of coccobacilli consistent with shift in vaginal hima. Normal [facility] Comment on above: Order Comment: Speci men Type: FLUID SPECIMENOrdering Facility: [facility] Address: [address] [place] [address] Performed By: #### L [id number] ####[facility] LABCLIA [id number] [place] [address] [place] FINAL PERFORMING LAB Normal [facility] Comment on above: Order Comment: Speci men Type: FLUID SPECIMENOrdering Facility: [facility] Address: [address] [place] [address] Result Comment: Tech nical component, ultrasonic solderer screening performed at [facility], [address] [place] [address] CLIA# [id number] interpretation performed at [facility], [address] [place], [place] [address] CLIA# [id number] Director: Gavin Boss M.D. Performed By: #### L [id number] ####[facility] LABCLIA [id number] [place] [address] [place] INTERPRETATION, CYTOLOGY, PROFESSOR OF ENGINEERING Normal [facility] Comment on above: Order Comment: Speci men Type: FLUID SPECIMENOrdering Facility: [facility] Address: [address] [place] [address] Result Comment: Nega tive for intraepithelial lesion or malignancy. Performed By: #### L [id number] ####[facility] LABCLIA [id number] [place] [address] [place] LMP 03/13/2024 Normal [facility] Comment on above: Order Comment: Speci men Type: FLUID SPECIMENOrdering Facility: [facility] Address: [address] [place] [address] Performed By: #### L [id number] ####[facility] LABCLIA [id number] [address] [place] PAP DISCLAIMER COMMENT The Pap Smear is a screening test for cervical cancer. False negative results occur with all screening tests, emphasizing the need for rescreening at recommended intervals, and clinical correlation. Normal [facility] Comment on above: Order Comment: Speci men Type: FLUID SPECIMENOrdering Facility: [facility] Address: [address] [place] [address] Performed By: #### L [id number] ####[facility] LABCLIA [id number] [place] [address] [place] PAP BOWSTRING MAKER COMMENT Normal [facility] Comment on above: Order Comment: Speci men Type: FLUID SPECIMENOrdering Facility: [facility] Address: [address] [place] [address] Performed By: #### L [id number] ####[facility] LABCLIA [id number] [place] [address] [place] POC STATE DIRECTOR ULTRASOUNDon 05-07-20 24 Indication Viability; confirm cardiac activity Impression Single [...] Read By: Zayda Parker NP MATERNAL MEDICINE [facility] Radiology Study observation (narrative) [facility] Prot/Creat Uron 05-07-2024 Protein/Creatinine (U) [Mass ratio] 0.09 mg/mg Normal <0.15 [facility] Comment on above: Order Comment: Speci men Type: URINE SPECIMENOrdering Facility: [facility] Address: [address] [place] [address] Result Comment: Adul t Proteinuria Categories:<0.15 mg/mg is considered normal to mildly increased0.15 - 0.50 mg/mg is considered moderately increased>0.50 mg/mg is considered severely increasedKDIGO. (2013). KDIGO 2012 Clinical Practice Guideline for the Evaluation and Management of Chronic Kidney Disease. Official Journal of the International Society of Nephrology, 3(1), 1-150. Performed By: #### 2 890-2 ####[facility] LABCLIA [id number] [address] [address] [place] Protein/Creatinine (U) [Mass ratio]on 05-07-2024 Creatinine (U) [Mass/Vol] 58.6 mg/dL Normal 20.0-300.0 [facility] Comment on above: Order Comment: Speci men Type: URINE SPECIMENOrdering Facility: [facility] Address: [address] [place] [address] Performed By: #### 2 890-2 ####[facility] LABCLIA [id number] [address] [address] [place] Protein (U) [Mass/Vol] 5 mg/dL Normal 0-20 [facility] Comment on above: Order Comment: Speci men Type: URINE SPECIMENOrdering Facility: [facility] Address: [address] [place] [address] Performed By: #### 2 890-2 ####[facility] LABCLIA [id number] [place] [address] [place] RUBELLA IGG ANTIBODYon 05-07 RUBELLA IGG AB, QUAL Negative Abnormal Positive [facility] Comment on above: Order Comment: Speci men Type: BLOOD SPECIMENOrdering Facility: [facility] Address: [address] [place] [address] Result Comment: The result suggests no history of Rubella vaccination or exposure to Rubella virus, however, some individuals with past history of Rubella vaccination may test negative using this test as immunity to Rubella virus wanes over time after vaccination. Please correlate with vaccination history if applicable. Performed By: #### R [id number] ####[facility] LABCLIA [id number] [place] [address] [place] Reagin and Treponema pallidu m IgG and IgM [Interp]on 05-07-2024 T. pallidum IgG+IgM IA Ql (S) Non-Reactive Normal Nonreactive [facility] Comment on above: Order Comment: Speci men Type: BLOOD SPECIMENOrdering Facility: [facility] Address: [address] [place] [address] Performed By: #### 5 195-3, 42893-0, 44167-9 ####[facility] LABIA [id number] [place] [address] [place] Reagin+T pallidum IgG+IgM Se rPl-Impon 05-07-2024 Reagin and Treponema pallidum IgG and IgM [Interp] Cannot exclude recent Treponemal infection if specimen collected within 7-10 days after appearance of suspect lesions or 2-3 weeks after an exposure. Clinical correlation is required. Normal [facility] Comment on above: Order Comment: Speci men Type: BLOOD SPECIMENOrdering Facility: [facility] Address: [address] [place] [address] Performed By: #### 5 195-3, 42982-9, 46784-8 ####[facility] LABCLIA [id number] [place] [address] [place] TSH SerPl-aCncon 05-07-2024 TSH Qn 0.807 m[IU]/L Normal 0.270-4.200 [facility] Comment on above: Order Comment: Speci men Type: BLOOD SPECIMENOrdering Facility: [facility] Address: [address] [place] [address] Result Comment: If t he patient is , TSH reference range varies by gestational period:First Trimester (weeks 9-12): 0.180-2.990 mIU/LSecond Trimester: 0.110-3.980 mIU/LThird Trimester: 0.480-4.710 mIU/Jerrell Gonzalez et al. A Practical Approach for the Verifications and Determination of Site- and Trimester-Specific Reference Intervals for Thyroid Function tests in . Thyroid, 2019:29:3:412-420. Lm E, et al. 2017 Guidelines of the [place] Thyroid Association for the Diagnosis and Management of Thyroid Disease during and the . Thyroid, 2017:27:3:315-389. Performed By: #### 3 016-3 ####[facility] LABCLIA [id number] [place] [address] [place] TYPE + SCREEN PRENATALon ABO A Normal [facility] Comment on above: Order Comment: Speci men Type: BLOOD SPECIMENOrdering Facility: [facility] Address: [address] [place] [address] Performed By: #### T SPN ####[facility] BLOOD BANKCLIA [id number] [place] [address] [place] Rh Nom (Bld) Positive Normal [facility] Comment on above: Order Comment: Speci men Type: BLOOD SPECIMENOrdering Facility: [facility] Address: [address] [place] [address] Performed By: #### T SPN ####CC [facility] BLOOD BANKCLIA [id number] [address] [address] [place] TYPE AND SCREEN EXPIRATION 05/10/2024 23:59 Normal [facility] Comment on above: Order Comment: Speci men Type: BLOOD SPECIMENOrdering Facility: [facility] Address: [address] [place], [place] [address] [id number] Performed By: #### T SPN ####CC [facility] BLOOD BANKCLIA [id number] [address] [address] [place] CNOVon 05-03-2024 CNOV Normal [facility] CNPNon 05-03-2024 CNPN Normal [facility] HEMOGLOBIN A1C (POC)on 05-03 HbA1c (Bld) [Mass fraction] 10.5 % Abnormal 4.3 - 5.6 % [facility] Comment on above: Location:[facility], [address] [place] [address], [facility] Point of care (POC) Hemoglobin A1c [...] specific diabetes management situations: The POC device fitness and wellness instructor provides a normal range of 4.2% to 6.5% for the HGBA1C POC test. However, the [place] Diabetes Association guidelines indicate that patients with [...] Interpretation and review of laboratory results Abnormal [facility] CNPNon 11-15-2024 CNPN Normal [facility] CNPNon 04-19-2024 CNPN Normal [facility] Bacteria identifiedon 2023 Bacteria identified Cx Nom (U) Test: Urine Culture Specimen Source: Clean Catch/Voided Specimen Type: Urine Specimen Date: 04/18/20241916 Result Date: 04/21/2024 1053 Result Status: Final result Abnormal: Yes Resulting Lab: [facility] [address] [place] [address] CULTURE >100,000 Escherichia coli (Abnormal) SUSCEPTIBILITY Escherichia coli METHOD MICROSCAN --- AMPICILLIN <=8.000 ug/ml Susceptible CEFAZOLIN <=2 ug/ml Susceptible CEFAZOLIN (UNCOMPLICATED UTIS ONLY) <=2 ug/ml Susceptible CIPROFLOXACIN <=0.250 ug/ml Susceptible GENTAMICIN <=2.000 ug/ml Susceptible NITROFURANTOIN <=32 ug/ml Susceptible PIPERACILLIN/TAZOBACTAM <=8.000 ug/ml Susceptible TRIMETHOPRIM/SULFAMETHO XAZOLE <=2/38 ug/ml Susceptible Abnormal [facility] Comment on above: Performed By: #### 6 30-4 #### AQUILES Gonzalez ([id number]) [facility] [address] [place] [address] C. trachomatis and N. gonorr hoeae DNA SUMIT+probe Nom (Unsp spec)on 04-18-2024 C. trachomatis rRNA SUMIT+probe Ql (Unsp spec) Not detected Not Detected [facility] Interpretation and review of laboratory results Normal [facility] N. gonorrhoeae DNA Probe+sig amp Ql (Unsp spec) Not detected Not Detected [facility] C. trachomatis rRNA SUMIT+probe Ql (Unsp spec) Not detected Normal Not Detected [facility] Comment on above: Performed By: #### 3 6903-3 #### JACQUELYN LOPEZ ([id number]) [facility] ([facility]) [address] [place] [address] N. gonorrhoeae DNA Probe+sig amp Ql (Unsp spec) Not detected Normal Not Detected [facility] Comment on above: Performed By: #### 3 6903-3 #### JACQUELYN LOPEZ ([id number]) [facility] ([facility]) [address] [place] [address] Choriogonadotropin.beta subu niton 04-18-2024 HCG.beta subunit Qn 2171 m[IU]/mL High <5 [facility] Comment on above: Order Comment: Total HCG measurement is performed using the [place] Access Immunoassay which detects intact HCG and free beta HCG subunit. This test is not indicated for use as a tumor marker. HCG testing is performed using a different test methodology at [facility] than other legacy [facility]. Direct result comparison should only [...] By: #### 2 1198-7 #### JACQUELYN LOPEZ ([id number]) [facility] ([facility]) [address] [place] [address] HCG ( test) IA.rapi d Ql (U)Ordered By: Lemuel Shetty on 04-18-2024 HCG ( test) Ql (U) Positive Abnormal NEGATIVE [facility] Interpretation and review of laboratory results Abnormal [facility] HCG ( test) IA.rapi d Ql (U)on 04-18-2024 HCG ( test) Ql (U) Positive Abnormal NEGATIVE [facility] Comment on above: Performed By: #### 8 0384-1 #### JACQUELYN LOPEZ ([id number]) [facility] ([facility]) [address] [place] [address] HCG.beta subunit Qnon 2023 Interpretation and review of laboratory results Abnormal [facility] Total HCG measuremen t is performed using the [place] Access Immunoassay which detects intact HCG and free beta HCG subunit. This test is not indicated for use as a tumor marker. HCG testing is performed using a different test methodology at [facility] than other [facility]. Direct result comparison should only be made within the same method. [facility] No Panel Informationon 04-18 Interpretation and review of laboratory results Abnormal [facility] Urinalysis complete W Reflex Culture panel (U)on 04-18-2024 Appearance (U) Turbid Abnormal Clear [facility] Bilirubin (U) [Mass/Vol] Negative NEGATIVE [facility] Color (U) Yellow Light-Yellow , Yellow, Dark-Yellow [facility] Glucose Auto test strip (U) [Mass/Vol] OVER (4+) Abnormal Normal mg/dL [facility] Ketones (U) [Mass/Vol] 100 (3+) Abnormal NEGATIVE mg/dL [facility] Leukocyte esterase Auto test strip Ql (U) 500 Zonia/ L Abnormal NEGATIVE [facility] Nitrite Auto test strip Ql (U) 2+ Abnormal NEGATIVE [facility] pH (U) 6 [pH] 5.0, 5.5, 6.0, 6.5, 7.0, 7.5, 8.0 [facility] Protein (U) [Mass/Vol] 30 (1+) Abnormal NEGATIVE, 10 (TRACE), 20 (TRACE) mg/dL [facility] RBC (U) [#/Vol] 0.03 (TRACE) Abnormal NEGATIVE [facility] Specific gravity (U) [Rel density] 1.048 Abnormal 1.005 - 1.035 [facility] Urobilinogen (U) [Mass/Vol] 2 (1+) Abnormal Normal mg/dL [facility] Comment on above: Due to a [...] is greater than the clinically reportable range. [facility] Appearance (U) Turbid Normal Clear [facility] Comment on above: Order Comment: OVER is reported when the result is greater than the clinically reportable range. Performed By: #### 5 8077-9 #### JACQUELYN LOPEZ ([id number]) [facility] ([facility]) [address] [place], [place] [address] Bilirubin (U) [Mass/Vol] Negative Normal NEGATIVE [facility] Comment on above: Order Comment: OVER is reported when the result is greater than the clinically reportable range. Performed By: #### 5 8077-9 #### JACQUELYN LOPEZ ([id number]) [facility] ([facility]) [address] [place] [address] Color (U) Yellow Normal Light-Yellow , Yellow, Dark-Yellow [facility] Comment on above: Order Comment: OVER is reported when the result is greater than the clinically reportable range. Performed By: #### 5 8077-9 #### JACQUELYN LOPEZ ([id number]) [facility] ([facility]) [address] [place] [address] Glucose Auto test strip (U) [Mass/Vol] OVER (4+) Abnormal Normal [facility] Comment on above: Order Comment: OVER is reported when the result is greater than the clinically reportable range. Performed By: #### 5 8077-9 #### JACQUELYN LOPEZ ([id number]) [facility] ([facility]) [address] [place] [address] Ketones (U) [Mass/Vol] 100 (3+) Abnormal NEGATIVE [facility] Comment on above: Order Comment: OVER is reported when the result is greater than the clinically reportable range. Performed By: #### 5 8077-9 #### JACQUELYN LOPEZ ([id number]) [facility] ([facility]) [address] [place] [address] Leukocyte esterase Auto test strip Ql (U) 500 Zonia/???L Abnormal NEGATIVE [facility] Comment on above: Order Comment: OVER is reported when the result is greater than the clinically reportable range. Performed By: #### 5 8077-9 #### JACQUELYN LOPEZ ([id number]) [facility] ([facility]) [address] [place], [place] [address] Nitrite Auto test strip Ql (U) 2+ Abnormal NEGATIVE [facility] Comment on above: Order Comment: OVER is reported when the result is greater than the clinically reportable range. Performed By: #### 5 8077-9 #### JACQUELYN LOPEZ ([id number]) [facility] ([facility]) [address] [place] [place] [address] 13624 pH (U) 6.0 [pH] Normal 5.0, 5.5, 6.0, 6.5, 7.0, 7.5, 8.0 [facility] Comment on above: Order Comment: OVER is reported when the result is greater than the clinically reportable range. Performed By: #### 5 8077-9 #### JACQUELYN LOPEZ ([id number]) [facility] ([facility]) [address] [place] [address] 89377 Protein (U) [Mass/Vol] 30 (1+) Abnormal NEGATIVE, 10 (TRACE), 20 (TRACE) [facility] Comment on above: Order Comment: OVER is reported when the result is greater than the clinically reportable range. Performed By: #### 5 8077-9 #### JACQUELYN LOPEZ ([id number]) [facility] ([facility]) [address] [place], [place] [id number] RBC (U) [#/Vol] 0.03 (TRACE) Abnormal NEGATIVE [facility] Comment on above: Order Comment: OVER is reported when the result is greater than the clinically reportable range. Performed By: #### 5 8077-9 #### JACQUELYN LPOEZ ([id number]) [facility] ([facility]) [address] [place] [address] 99628 Specific gravity (U) [Rel density] 1.048 Normal 1.005-1.035 [facility] Comment on above: Order Comment: OVER is reported when the result is greater than the clinically reportable range. Performed By: #### 5 8077-9 #### JACQUELYN LOPEZ ([id number]) [facility] ([facility]) [address] [place] [address] Urobilinogen (U) [Mass/Vol] 2 (1+) Abnormal Normal [facility] Comment on above: Order Comment: OVER is [...] By: #### 5 8077-9 #### JACQUELYN LOPEZ ([id number]) [facility] ([facility]) [address] [place] [address] Urinalysis microscopic panel Auto Ql (U)on 04-18-2024 Bacteria Auto (Urine sed) [#/Area] 4+ Abnormal NONE SEEN /HPF [facility] Epithelial cells.squamous Auto (Urine sed) [#/Area] 10-25 (FEW) Reference range not established. /HPF [facility] Mucus Auto (Urine sed) [#/Area] FEW Reference range not established. /LPF [facility] RBC Auto (Urine sed) [#/Area] >20 Abnormal NONE, 1-2, 3-5 /HPF [facility] WBC Auto (Urine sed) [#/Area] >50 Abnormal 1-5, NONE /HPF [facility] Bacteria Auto (Urine sed) [#/Area] 4+ /HPF Abnormal NONE SEEN [facility] Comment on above: Performed By: #### 5 3315-8 #### JACQUELYN LOPEZ ([id number]) [facility] ([facility]) [address] [place] [address] Epithelial cells.squamous Auto (Urine sed) [#/Area] 10-25 (FEW) Normal Reference range not established. [facility] Comment on above: Performed By: #### 5 3315-8 #### JACQUELYN LOPEZ ([id number]) [facility] ([facility]) [address] [place] [address] 52028 Mucus Auto (Urine sed) [#/Area] FEW Normal Reference range not established. [facility] Comment on above: Performed By: #### 5 3315-8 #### JACQUELYN LOPEZ ([id number]) [facility] ([facility]) [address] [place] [address] RBC Auto (Urine sed) [#/Area] >20 Abnormal NONE, 1-2, 3-5 [facility] Comment on above: Performed By: #### 5 3315-8 #### JACQUELYN LOPEZ ([id number]) [facility] ([facility]) [address] [place] [address] WBC Auto (Urine sed) [#/Area] >50 Abnormal 1-5, NONE [facility] Comment on above: Performed By: #### 5 3315-8 #### JACQUELYN LOPEZ ([id number]) [facility] ([facility]) [address] [place] [address] hCG, quantitative, on 04-18-2024 HCG.beta subunit Qn 2171 m[IU]/mL [facility] Comment on above: Low-level positive H CG [...] x10EE3/UL Normal 0.00 - 0.10 [facility] Comment on above: Performed By: #### 2 51039 ####[facility],[address] [place] [address] 92967 Basophils/100 WBC (Bld) 0.3 % Normal 0.0 - 2.0 [facility] Comment on above: Performed By: #### 2 99156 ####[facility],[address] [place] [address] 19683 CBC + DIFF Normal [facility] Comment on above: Result Comment: CBC- COMPLETE BLOOD COUNT Performed By: #### 2 91523 ####[facility],[address] [place] [address] 26275 EO # 0.11 x10EE3/UL Normal 0.00 - 0.50 [facility] Comment on above: Performed By: #### 2 41227 ####[facility],[address] [place] [address] 94212 Eosinophils/100 WBC (Bld) 2.4 % Normal 0.0 - 7.0 [facility] Comment on above: Performed By: #### 2 09294 ####[facility],[address] [place] [address] 64142 Erythrocyte distribution width (RBC) [Ratio] 12.7 % Normal 12.0 - 15.6 [facility] Comment on above: Performed By: #### 2 20388 ####[facility],[address] [place] [address] 09600 Hematocrit (Bld) [Volume fraction] 44.1 % Normal 34.0 - 46.0 [facility] Comment on above: Performed By: #### 2 94155 ####[facility],[address] [place] [address] 56664 Hemoglobin (Bld) [Mass/Vol] 15.2 g/dL Normal 12.0 - 16.0 [facility] Comment on above: Performed By: #### 2 21399 ####[facility],[address] [place] [address] 87018 Lymph # 1.74 x10EE3/UL Normal 0.80 - 2.80 [facility] Comment on above: Performed By: #### 2 71110 ####[facility],[address] [place] [address] 27591 Lymphocytes/100 WBC (Bld) 38.8 % Normal 20.0 - 45.0 [facility] Comment on above: Performed By: #### 2 57219 ####[facility],[address] [place] [address] MANUAL DIFF N/A Normal [facility] Comment on above: Performed By: #### 2 03886 ####[facility],[address] [place] [address] MCH (RBC) [Entitic mass] 29 pg Normal 27 - 33 [facility] Comment on above: Performed By: #### 2 64849 ####[facility],[address] [place] [address] MCHC 34 X10 3 Normal 32 - 36 [facility] Comment on above: Performed By: #### 2 98345 ####[facility],[address] [place] [address] MCV (RBC) [Entitic vol] 84 fL Normal 80 - 99 [facility] Comment on above: Performed By: #### 2 28243 ####[facility],[address] [place] [address] Calvert # 0.48 x10EE3/UL Normal 0.20 - 1.00 [facility] Comment on above: Performed By: #### 2 03730 ####[facility],[address] [place] [address] MONOS % 10.7 % High 0.0 - 10.0 [facility] Comment on above: Performed By: #### 2 85983 ####[facility],[address] [place], [place] [address] Morphology Jorge (Bld) [Interp] N/A Normal [facility] Comment on above: Performed By: #### 2 60840 ####[facility],[address] [place] [address] Neut # 2.14 x10EE3/UL Normal 1.50 - 7.10 [facility] Comment on above: Performed By: #### 2 28236 ####[facility],[address] [place] [address] 96038 Neutrophils/100 WBC (Bld) 47.9 % Normal 46.0 - 76.0 [facility] Comment on above: Performed By: #### 2 39590 ####[facility],[address] [place] [address] 21381 PLATELET 283 x10EE3/UL Normal 150 - 450 [facility] Comment on above: Performed By: #### 2 88030 ####[facility],[address] [place] [address] 64428 Platelet mean volume (Bld) [Entitic vol] 7.1 fL Normal 6.6 - 10.5 [facility] Comment on above: Result Comment: AUTO MATED DIFFERENTIAL Performed By: #### 2 61318 ####[facility],[address] [place] [address] 70534 RBC 5.24 x 10EE6/UL Normal 4.10 - 5.30 [facility] Comment on above: Performed By: #### 2 01024 ####[facility],[address] [place] [address] 88601 WBC 4.5 x 10EE3/UL Normal 4.5 - 10.8 [facility] Comment on above: Performed By: #### 2 67759 ####[facility],[address] [place] [address] 57262 CMP with eGFRon 04-15-2024 AGE 29 years Normal [facility] Comment on above: Performed By: #### 2 01343 #### [facility],[address] [place] [address] 38204 Albumin [Mass/Vol] 3.7 g/dL Normal 3.4 - 5.0 [facility] Comment on above: Performed By: #### 2 01707 #### [facility],[address] [place] [address] 43927 Albumin/Globulin [Mass ratio] 0.9 {ratio} Normal 0.9 - 1.6 [facility] Comment on above: Performed By: #### 2 20702 #### [facility],[address] [place] [address] 29366 ALK PHOS 89 U/L Normal 46 - 116 [facility] Comment on above: Performed By: #### 2 83326 #### [facility],[address] [place] [address] 33366 ALT [Catalytic activity/Vol] 28 U/L Normal 16 - 63 [facility] Comment on above: Performed By: #### 2 76614 #### [facility],[address] [place] [address] 03229 Anion gap [Moles/Vol] 20 mmol/L Normal 10 - 20 [facility] Comment on above: Performed By: #### 2 63017 #### [facility],[address] [place], [place] [address] AST [Catalytic activity/Vol] 12 U/L Low 13 - 39 [facility] Comment on above: Performed By: #### 2 87661 #### [facility],[address] [place] [address] 04919 B/C RATIO 19 ratio Normal 0 - 30 [facility] Comment on above: Performed By: #### 2 66995 #### [facility],[address] [place] [address] 84348 Bilirubin [Mass/Vol] 0.7 mg/dL Normal 0.2 - 1.0 [facility] Comment on above: Performed By: #### 2 80183 #### [facility],[address] [place] [address] 70508 Calcium [Mass/Vol] 8.9 mg/dL Normal 8.5 - 10.1 [facility] Comment on above: Performed By: #### 2 89263 #### [facility],[address] [place] [address] 15151 Chloride [Moles/Vol] 101 mmol/L Normal 98 - 107 [facility] Comment on above: Performed By: #### 2 02596 #### [facility],[address] [place] [address] 04780 CMP with eGFR Normal [facility] Comment on above: Result Comment: COMP REHENSIVE METABOLIC PANEL Performed By: #### 2 32350 #### [facility],[address] [place], [place] [address] CO2 [Moles/Vol] 20.5 mmol/L Low 21.0 - 32.0 [facility] Comment on above: Performed By: #### 2 83815 #### [place] [id number] Creatinine [Mass/Vol] 0.64 mg/dL Normal 0.55 - 1.02 [facility] Comment on above: Performed By: #### 2 60789 #### [facility],[address] [place], [place] [address] GFR/1.73 sq M.predicted among non-blacks MDRD (S/P/Bld) [Vol rate/Area] mL/min/{1.73_m2} Normal 60 - 999 [facility] Comment on above: Performed By: #### 2 56502 #### [place] [id number] Result Comment: ACCO RDING TO THE NATIONAL KIDNEY DISEASE EDUCATION PROGRAM(NKDE), A NORMAL eGFR IS A VALUE GREATER THAN OR EQUAL TO 60 ML/MIN/1.73 SQ METERS. CHRONIC KIDNEY DISEASE: <60mL/MIN/1.73 SQ METERS KIDNEY FAILURE: <15mL/MIN/1.73 SQ METERS THIS TEST SHOULD ONLY BE USED FOR PATIENTS 18 YEARS OF AGE AND OLDER. Globulin (S) [Mass/Vol] 4.1 g/dL High 1.5 - 3.8 [facility] Comment on above: Performed By: #### 2 13729 #### [place] [id number] Glucose [Mass/Vol] 235 mg/dL High 74 - 106 [facility] Comment on above: Performed By: #### 2 67816 #### [address] [address] Potassium [Moles/Vol] 3.4 mmol/L Low 3.5 - 5.1 [facility] Comment on above: Performed By: #### 2 99472 #### [facility],[address] [place] [address] 50822 Protein [Mass/Vol] 7.8 g/dL Normal 6.4 - 8.2 [facility] Comment on above: Performed By: #### 2 27405 #### [facility],[address] [place] [address] 17710 Sodium [Moles/Vol] 138 mmol/L Normal 136 - 145 [facility] Comment on above: Performed By: #### 2 95966 #### [facility],[address] [place] [address] 05074 Urea nitrogen [Mass/Vol] 12 mg/dL Normal 7 - 18 [facility] Comment on above: Performed By: #### 2 71235 #### [facility],[address] [place] [address] 13217 ED MED ADMINISTRATION DETAIL on 04-15-2024 ED MED ADMINISTRATION DETAIL Dental Laboratory Technician Medication Administration Record [address] [address] [id number] 04/14/2024 Patient: MELISSA KAUR Sex: Female : [...] - 01:23 Gely Patterson R.N. Scanned 02:51 11 Medication Discontinued: bag #1 infused. Total amount infused: 1000 mL. IV patency established. IV site checked: no pain, redness, or swelling. IV flushed thoroughly post-medication administration. - 03:06 Leona Roberts R.N. 1 of 1 Normal [facility] ED NURSES CLINICAL NOTEon ED NURSES CLINICAL NOTE Nurse Narrative Nurse Clinical [address] [place] [address] [id number] 04/14/2024 Patient: MELISSA KAUR Sex: Female : [...] R.N. Allergies: 1 of 4 Nurse Narrative Levy -- 21:55 04/14/24 FABRIZIO Bryan R.N. Reglan -- 21:55 04/14/24 FABRIZIO Bryan R.N. Zoloft -- 21:55 04/14/24 FABRIZIO Bryan R.N. Seroquel -- 21:55 04/14/24 FABRIZIO Bryan R.N. Problems: Depression -- 21:54 04/14/24 FABRIZIO Bryan R.N. Anxiety disorder -- 21:54 04/14/24 FABRIZIO Bryan R.N. Bipolar Disorder -- 21:54 04/14/24 [...] Roberts R.N. 02:56 04/15/24. Patient transported with technical sales associate. (to [facility]). -- 03:04/15/24 FABRIZIO Roberts R.N.Correction -- 03:04/15/24 FABRIZIO Roberts R.N. 02:56 04/15/24. Patient transported by stretcher with technical sales associate. (to [facility]). -- 03:07 04/15/24 FABRIZIO Roberts R.N. 03:01 04/15/24. Patient transported to radiology. -- 03:06 04/15 (more content not included)... Normal [facility] ED ORDER SHEET (CPOE ONLY)on 04-15-2024 ED ORDER SHEET (CPOE ONLY) Order Sheet Order Sheet [facility] [address] [place] [address] [id number] 04/14/2024 Patient: MELISSA KAUR Sex: Female : 1995 Age: 29y MEASUREMENTS: Wt: 77.1 kg ALLERGIES: Reglan, Seroquel, Zofran, Zoloft MEDICATION/IV/DRIP/FLUI D ORDERS Order Description Priority Entered Acknowledged Completed IV NS 0.9 %1000 mL at 999 00:22 04/15/2024 00:54 01:23 mL/hr (NOW x1) Milly Ji D.O. 04/15/2024 04/15/2024 Gely Patterson R.N. LAB ORDERS Order Description Priority Entered Acknowledged Collected Completed CBC w Diff Stat Stat 00:22 04/15/2024 00:30 04/15/2024 01:19 04/15/2024 Viola Hansen R.N. Seth Lapp, R.N. CMP Stat Stat 00:22 04/15/2024 00:30 04/15/2024 01:19 04/15/2024 Viola Hansen R.N. Seth Lapp RMegan Urinalysis Stat Stat 00:22 04/15/2024 00:30 04/15/2024 02:17 04/15/2024 Viola Hansen R.N. Anne Rutt, R.N. HCG, Qual Serum Stat Stat 00:23 04/15/2024 00:30 04/15/2024 01:19 04/15/2024 1 of 2 Order Sheet Viola Hansen R.N. Seth Lapp, R.N. HCG, Quant Serum Stat Stat 02:17 04/15/2024 02:17 04/15/2024 02:21 04/15/2024 Viola Hansen R.N. Seth Lapp, R.N. quantitative hcg as 05:03 04/15/2024 05:24 04/15/2024 outpatient on 04/17/2024. Viola Hansen R.N. results to [facility] DIAGNOSTIC STUDY ORDERS Order Description Priority [...] 01:19 04/15/2024 minutes Viola Hansen R.N. Seth Lapp, R.N. [Electronically signed by Milly Ji D.O. (04/15/2024 09:07 EST)] 2 of 2 Normal [facility] ED PHYSICIAN CLINICAL REPORT on 04-15-2024 ED PHYSICIAN CLINICAL REPORT Narrative Physician Clinical Narrative [address] [address] [id number] 04/14/2024 Patient: MELISSA KAUR Sex: Female : [...] 1.50 - 7.10 Final EST 04/15/2024 01:39 [place] # 0. (more content not included)... Normal [facility] ED SUPER BILLon 04-15-2024 ED [place] [address] [place] [address] [id number] 04/14/2024 Patient: MELISSA KAUR Sex: Female : 1995 Age: 29y Item Facility Professional Category Description Code Code Quantity Fee Total Drugs Normal [facility] 394389 1 $0.00 $0.00 1000cc (997848) Nurse/E/M EMERGENCY 108980 1 $0.00 $0.00 DEPARTMENT VISIT HIGH/URGENT SEVERITY (59366-03) Nurse/IV/IM/Infusions Hydration initial 130141 1 $0.00 $0.00 (83170) Grand Total $0.00 Providers Milly Ji D.O. Chief Complaint ABDOMINAL PAIN. 1 of 2 Superbill Principal Diagnosis First trimester ; positive test in emergency department. Ultrasound was performed but could not determine the location of the . ICD-10 Codes Z34.91: Encounter for supervision of normal , unspecified, first trimester Z3A.00: Weeks of gestation of not specified 2 of 2 Normal [facility] ED VISIT SUMMARYon ED VISIT SUMMARY Visit Overview Visit Overview [facility] [address] [place] [address] [id number] 04/14/2024 Patient: MELISSA KAUR Sex: Female : [...] hcg as outpatient on 04/17/2024. results to [facility] Urinalysis US OB<14WK Single Gestation CLINICAL IMPRESSION FIRST TRIMESTER ; POSITIVE TEST IN EMERGENCY DEPARTMENT. ULTRASOUND WAS PERFORMED BUT COULD NOT DETERMINE THE LOCATION OF THE 3 of 3 Normal [facility] ED VITALS FLOW SHEETon 04-15 ED VITALS FLOW SHEET Vitals Vital Sign Flow Sheet [address] [place] [address] [id number] 04/14/2024 Patient: MELISSA KAUR Sex: Female : [...] 98.5 F 6 2 of 2 Normal [facility] PREG SERUM QUANTon 4 HCG QUANTITATIVE 433 mIU/mL High 0 - 6 [facility] Comment on above: Result Comment: Refe [...] 3RD TRIMESTER 1000-50,000 Performed By: #### 2 08589 ####[facility],[address] [place] [address] SERUM QUALon 04-15 EXTERNAL QC DONE? YES Normal [facility] Comment on above: Performed By: #### 2 93628 #### [facility],[address] [place] [address] INTERNAL QC PASS Normal [facility] Comment on above: Performed By: #### 2 81192 #### [facility],[address] [place], [place] [id number] SER Positive Normal NEGATIVE [facility] Comment on above: Performed By: #### 2 25283 #### [facility],[address] [place], [place] [id number] URINALYSISon 04-15-2024 Amorphous NONE Normal [facility] Comment on above: Performed By: #### 2 28841 #### [facility],[address] [place], [place] [address] Bacteria TRACE Normal [facility] Comment on above: Performed By: #### 2 17830 #### [facility],[address] [place] [address] 31797 Bilirubin Ql (U) Negative Normal NORMAL: NEGATIVE [facility] Comment on above: Performed By: #### 2 53866 #### [facility],[address] [place] [address] Casts NONE Normal [facility] Comment on above: Performed By: #### 2 69132 #### [facility],[address] [place] [address] Clarity (U) clear Normal NORMAL: CLEAR [facility] Comment on above: Performed By: #### 2 42713 #### [facility],[address] [place] [address] Color (U) yellow Normal NORMAL: YELLOW [facility] Comment on above: Performed By: #### 2 73510 #### [facility],[address] [place], [place] [address] Crystals LM Nom (Urine sed) NONE Normal [facility] Comment on above: Performed By: #### 2 18302 #### [facility],[address] [place] [address] 06388 Epi Cells MODERATE Normal [facility] Comment on above: Performed By: #### 2 53491 #### [facility],[address] [place] [address] 05606 Glucose Ql (U) 1000 Abnormal NORMAL: NORMAL [facility] Comment on above: Performed By: #### 2 17737 #### [facility],[address] [place] [address] 55740 Hemoglobin Ql (U) Negative Normal NORMAL: NEGATIVE [facility] Comment on above: Performed By: #### 2 79652 #### [facility],[address] [place] [address] 08655 Ketone 150 Abnormal NORMAL: NEGATIVE [facility] Comment on above: Performed By: #### 2 80076 #### [facility],[address] [place] [address] 43826 Leukocytes 25 Abnormal NORMAL: NEGATIVE [facility] Comment on above: Performed By: #### 2 81809 #### [facility],[address] [place] [address] 24366 Mucous NONE Normal [facility] Comment on above: Performed By: #### 2 17281 #### [facility],[address] [place] [address] Nitrite Ql (U) Negative Normal NORMAL: NEGATIVE [facility] Comment on above: Performed By: #### 2 62857 #### [facility],[address] [place] [address] pH (U) 5 [pH] Normal NORMAL: 5.0-8.0 [facility] Comment on above: Performed By: #### 2 85150 #### [facility],[address] [place] [address] Protein Ql (U) 15 Abnormal NORMAL: NEGATIVE [facility] Comment on above: Performed By: #### 2 56708 #### [facility],[address] [place] [address] Rbc 0-5 Normal 0-3/hpf [facility] Comment on above: Performed By: #### 2 16307 #### [facility],[address] [place] [address] Sp [place] 1.025 Normal NORMAL: 1.010-1.030 [facility] Comment on above: Performed By: #### 2 98756 #### [facility],[address] [place] [address] Specimen Type R Normal [facility] Comment on above: Performed By: #### 2 46205 #### [facility],[address] [place], [place] [address] Urinalysis dipstick W Reflex Microscopic panel (U) SEE BELOW Normal [facility] Comment on above: Result Comment: MICR OSCOPIC Performed By: #### 2 30760 #### [facility],[address] [place] [address] 23910 Urobilinog NORM Normal NORMAL: NORMAL [facility] Comment on above: Performed By: #### 2 34994 #### [facility],[address] [place] [address] 76923 Wbc 1-5 Normal 0-5/hpf [facility] Comment on above: Performed By: #### 2 14316 #### [facility],[address] [place] [address] 87552 Yeast NONE Normal [facility] Comment on above: Performed By: #### 2 04606 #### [facility],[address] [place], [place] [address] US OB ENDO VAGINALon 024 OB ENDO VAGINAL [place] [address] Patient: MELISSA KAUR Phone#: : 1995 Age: 29 Gender: F Pt. Type: ER Account: [id number] Location: [facility] Ordering: MILLY JI Exam Date: 04/15/2024/2:54 Family Phys: JAMARI BYRNE Charge Code: 643213 Physician: [place] Order #: [id number] Dose#: PROCEDURE: OB INITIAL <14 WEEKS ULTRASOUND, [...] Nobles MD on 04/15/2024 at 9:02 Normal [facility] US OB INITIAL< 14 WEEKS; 1st GESTATIONon 04-15-2024 US OB INITIAL< 14 WEEKS; 1st GESTATION [place] [address] Patient: MELISSA KAUR Phone#: : 1995 Age: 29 Gender: F Pt. Type: ER Account: [id number] Location: 2 Ordering: MILLY JI Exam Date: 04/15/2024/2:54 Family Phys: JAMARI BYRNE Charge Code: 587148 Physician: [place] Order #: [id number] Dose#: PROCEDURE: OB INITIAL <14 WEEKS ULTRASOUND, [...] Nobles MD on 04/15/2024 at 9:02 Normal [facility] CNPNon 04-14-2024 CNPN Normal [facility] Urgent Care Visit Reporton 0 02-26-2024 Urgent Care Visit Report [facility] [address] [place] [address] OFFICE VISIT Date of Service: 02/26/24 MR#: [id number] Acct: [id number] Name: MELISSA KAUR Rep #: [id number] : 1995 Provider: BUDDY Henderson Age/Sex: 29/F Location: [facility] Status: Signed Intake Vital Signs 02/26/24 13:36 Height 5 ft 2 in Weight: 171 lb 6 oz BMI 31.3 BP 128/68 H Blood Pressure Location Lt brachial Position Sitting Respiration 17 Pulse 84 Pulse Source NIBP Temp 98.2 F Temp Source Temporal Pulse Oximetry (%) 98 Oxygen Delivery Method room air Intake Visit Reasons: YEAST INFECTION Chief Complaint: vaginal itching, discharge Glass Polisher Required: No Is patient in pain?: No [...] Samayoa Signature: Date (if applicable) CC: Normal [facility] Basic metabolic 2000 panelon 12-16-2023 Anion gap [Moles/Vol] 14 mmol/L Normal 10-20 [facility] Comment on above: Performed By: #### 2 4321-2 #### JACQUELYN LOPEZ ([id number]) [facility] ([facility]) [address] [place] [address] 47061 Calcium [Mass/Vol] 9.3 mg/dL Normal 8.6-10.3 [facility] Comment on above: Performed By: #### 2 4321-2 #### JACQUELYN LOPEZ ([id number]) [facility] [facility] [address] [place] [address] Chloride [Moles/Vol] 101 mmol/L Normal 98-[address] [facility] Comment on above: Performed By: #### 2 4321-2 #### JACQUELYN LOPEZ ([id number]) [facility] ([facility]) [facility] [place] [address] CO2 [Moles/Vol] 26 mmol/L Normal 21-32 [facility] Comment on above: Performed By: #### 2 4321-2 #### JACQUELYN LOPEZ ([id number]) [facility] ([facility]) [address] [place] [address] Creatinine [Mass/Vol] 0.54 mg/dL Normal 0.50-1.05 [facility] Comment on above: Performed By: #### 2 4321-2 #### JACQUELYN LOPEZ ([id number]) [facility] ([facility]) [address] [place] [address] GFR/1.73 sq M.predicted MDRD (S/P/Bld) [Vol rate/Area] mL/min/{1.73_m2} Normal >60 [facility] Comment on above: Result Comment: Calc ulations of estimated GFR are performed using the 2020 CKD-EPI Study Refit equation without the race variable for the IDMS-Traceable creatinine methods. https://jasn.asnjournals.org/content/early/ASN.342031 7532 Performed By: #### 2 4321-2 #### JACQUELYN LOPEZ ([id number]) [facility] ([facility]) [facility] [place] [address] Glucose [Mass/Vol] 207 mg/dL High 74-99 [facility] Comment on above: Performed By: #### 2 4321-2 #### JACQUELYN LOPEZ ([id number]) [facility] ([facility]) [facility] [place] [address] Potassium [Moles/Vol] 3.7 mmol/L Normal 3.5-5.3 [facility] Comment on above: Performed By: #### 2 4321-2 #### JACQUELYN LOPEZ ([id number]) [facility] ([facility]) [facility] [place] [address] Sodium [Moles/Vol] 137 mmol/L Normal 136-145 [facility] Comment on above: Performed By: #### 2 4321-2 #### JACQUELYN LOPEZ ([id number]) [facility] ([facility]) [facility] [place] [address] Urea nitrogen [Mass/Vol] 7 mg/dL Normal 6-23 [facility] Comment on above: Performed By: #### 2 4321-2 #### JACQUELYN LOPEZ ([id number]) [facility] ([facility]) [address] [place] [address] HbA1c (Bld) [Mass fraction]o n 12-16-2023 Average glucose Estimated from glycated hemoglobin (Bld) [Mass/Vol] 246 mg/dL Normal Not Established [facility] Comment on above: Order Comment: Diagn osis of Diabetes-Adults Non-Diabetic: < or = 5.6% Increased risk for developing diabetes: 5.7-6.4% Diagnostic of diabetes: > or = 6.5% Performed By: #### 4 548-4 #### JACQUELYN LOPEZ ([id number]) [facility] ([facility]) [address] [place] [address] Hemoglobin A1c/Hemoglobin.to bg 12-16-2023 HbA1c (Bld) [Mass fraction] 10.2 % High see below [facility] Comment on above: Order Comment: Diagn osis of Diabetes-Adults Non-Diabetic: < or = 5.6% Increased risk for developing diabetes: 5.7-6.4% Diagnostic of diabetes: > or = 6.5% Performed By: #### 4 548-4 #### JACQUELYN LOPEZ ([id number]) [facility] ([facility]) [address] [place] [address] Basic metabolic 2000 panelon 09-15-2023 Anion gap [Moles/Vol] 13 mmol/L Normal 10-20 [facility] Comment on above: Performed By: #### 2 4321-2 #### JACQUELYN LOPEZ ([id number]) [facility] ([facility]) [address] [place] [address] Calcium [Mass/Vol] 9.9 mg/dL Normal 8.6-10.3 [facility] Comment on above: Performed By: #### 2 4321-2 #### JACQUELYN LOPEZ ([id number]) [facility] ([facility]) [address] [place] [address] Chloride [Moles/Vol] 99 mmol/L Normal 98-[address] [facility] Comment on above: Performed By: #### 2 4321-2 #### JACQUELYN LOPEZ ([id number]) [facility] ([facility]) [address] [place] [address] CO2 [Moles/Vol] 28 mmol/L Normal 21-32 [facility] Comment on above: Performed By: #### 2 4321-2 #### JACQUELYN LOPEZ ([id number]) [facility] ([facility]) [address] [place] [address] Creatinine [Mass/Vol] 0.57 mg/dL Normal 0.50-1.05 [facility] Comment on above: Performed By: #### 2 4321-2 #### JACQUELNY LOPEZ ([id number]) [facility] ([facility]) [address] [place] [address] GFR/1.73 sq M.predicted MDRD (S/P/Bld) [Vol rate/Area] mL/min/{1.73_m2} Normal >60 [facility] Comment on above: Result Comment: Calc ulations of estimated GFR are performed using the 2020 CKD-EPI Study Refit equation without the race variable for the IDMS-Traceable creatinine methods. https://jasn.asnjournals.org/content/early/ASN.275054 6976 Performed By: #### 2 4321-2 #### JACQUELYN LOPEZ ([id number]) [facility] ([facility]) [address] [place] [address] Glucose [Mass/Vol] 208 mg/dL High 74-99 [facility] Comment on above: Performed By: #### 2 4321-2 #### JACQUELYN LOPEZ ([id number]) [facility] ([facility]) [address] [place] [address] Potassium [Moles/Vol] 4.0 mmol/L Normal 3.5-5.3 [facility] Comment on above: Performed By: #### 2 4321-2 #### JACQUELYN LOPEZ ([id number]) [facility] ([facility]) [address] [place] [address] Sodium [Moles/Vol] 136 mmol/L Normal 136-145 [facility] Comment on above: Performed By: #### 2 4321-2 #### JACQUELYN LOPEZ ([id number]) [facility] ([facility]) [address] [place] [address] Urea nitrogen [Mass/Vol] 10 mg/dL Normal 6-23 [facility] Comment on above: Performed By: #### 2 4321-2 #### JACQUELYN LOPEZ ([id number]) [facility] ([facility]) [facility] [place] [address] HbA1c (Bld) [Mass fraction]o n 09-15-2023 Average glucose Estimated from glycated hemoglobin (Bld) [Mass/Vol] 226 mg/dL Normal Not Established [facility] Comment on above: Order Comment: Diagn osis of Diabetes-Adults Non-Diabetic: < or = 5.6% Increased risk for developing diabetes: 5.7-6.4% Diagnostic of diabetes: > or = 6.5% Monitoring of Diabetes Age (y)....................... Therapeutic Goal (%) Adults: >18.........................<7.0 Pediatrics: 13-18...................<7.5 Pediatrics: 7-12....................<8.0 Pediatrics: 0-6..................... 7.5-8.5 [employer]. Diabetes Care 33(S1), Jun 2009 Performed By: #### 4 548-4 #### JACQUELYN LOPEZ ([id number]) [facility] ([facility]) [facility] [place] [address] Hemoglobin A1c/Hemoglobin.to bg 09-15-2023 HbA1c (Bld) [Mass fraction] 9.5 % High see below [facility] Comment on above: Order Comment: Diagn osis of Diabetes-Adults Non-Diabetic: < or = 5.6% Increased risk for developing diabetes: 5.7-6.4% Diagnostic of diabetes: > or = 6.5% Monitoring of Diabetes Age (y)....................... Therapeutic Goal (%) Adults: >18.........................<7.0 Pediatrics: 13-18...................<7.5 Pediatrics: 7-12....................<8.0 Pediatrics: 0-6..................... 7.5-8.5 [employer]. Diabetes Care 33(S1), Jun 2009 Performed By: #### 4 548-4 #### VALLADARES JOHN ([id number]) [facility] ([facility]) [address] [place] [address] BASIC METABOLIC PANELon 06-2 -2022 Anion gap [Moles/Vol] 13 mmol/L Normal 10 - 20 [facility] Comment on above: Performed By: #### B MP #### [address] [address] Calcium [Mass/Vol] 9.2 mg/dL Normal 8.6 - 10.3 [facility] Comment on above: Performed By: #### B MP #### [address] [address] Chloride [Moles/Vol] 101 mmol/L Normal 98 - 107 [facility] Comment on above: Performed By: #### B MP #### [address] [address] Creatinine [Mass/Vol] 0.55 mg/dL Normal 0.50 - 1.05 [facility] Comment on above: Performed By: #### B MP #### [address] [address] eGFR FEMALE >90 Normal >90 [facility] Comment on above: Result Comment: CALC ULATIONS OF ESTIMATED GFR ARE PERFORMED USING THE 2020 CKD-EPI STUDY REFIT EQUATION WITHOUT THE RACE VARIABLE FOR THE IDMS-TRACEABLE CREATININE METHODS. https://jasn.asnjournals.org/content//ASN.952647 3956 Performed By: #### B MP #### [address] [address] Glucose [Mass/Vol] 296 mg/dL High 74 - 99 [facility] Comment on above: Performed By: #### B MP #### [address] [address] HCO3 (Bld) [Moles/Vol] 26 mmol/L Normal 21 - 32 [facility] Comment on above: Performed By: #### B MP #### [address] [address] Potassium [Moles/Vol] 3.8 mmol/L Normal 3.5 - 5.3 [facility] Comment on above: Performed By: #### B MP #### [address] [address] Sodium [Moles/Vol] 136 mmol/L Normal 136 - 145 [facility] Comment on above: Performed By: #### B MP #### [address] [address] Urea nitrogen [Mass/Vol] 10 mg/dL Normal 6 - 23 [facility] Comment on above: Performed By: #### B MP #### [address] [address] Lab Specimen Source Normal [facility] Comment on above: Performed By: #### B MP #### [address] [address] Performed By: #### H BA1E #### [address] [address] HEMOGLOBIN A1Con 12-03-2022 Glucose [Mass/Vol] 209 mg/dL Normal [facility] Comment on above: Performed By: #### H BA1E #### [address] [address] HbA1c (Bld) [Mass fraction] 8.9 % Abnormal [facility] Comment on above: Result Comment: Diag nosis of Diabetes-Adults Non-Diabetic: < or = 5.6% Increased risk for developing diabetes: 5.7-6.4% Diagnostic of diabetes: > or = 6.5% . Monitoring of Diabetes Age (y) Therapeutic Goal (%) Adults: >18 <7.0 Pediatrics: 13-18 <7.5 7-12 <8.0 0- 6 7.5-8.5 [employer]. Diabetes Care 33(S1), Jun 2009. Performed By: #### H BA1E #### [address] [address] HCG ( test) Ql (U)o n 08-17-2022 Internal Control Pass [facility] Interpretation and review of laboratory results Normal [facility] POC , Urineon 08-17 HCG ( test) Ql (U) Negative Negative [facility] BASIC METABOLIC PANELon 12- eGFR FEMALE >90 Normal >90 [facility] Comment on above: Result Comment: CALC ULATIONS OF ESTIMATED GFR ARE PERFORMED USING THE 2020 CKD-EPI STUDY REFIT EQUATION WITHOUT THE RACE VARIABLE FOR THE IDMS-TRACEABLE CREATININE METHODS. https://jasn.asnjournals.org/content/early//ASN.132306 9719 Performed By: #### B MP #### [address] [address] HCO3 (Bld) [Moles/Vol] 24 mmol/L Normal 21 - 32 [facility] Comment on above: Performed By: #### B MP #### [address] [address] Anion gap [Moles/Vol] 14 mmol/L Normal 10 - 20 [facility] Work Phone: Comment on above: Performed By: #### B MP #### [address] [address] Calcium [Mass/Vol] 9.8 mg/dL Normal 8.6 - 10.3 [facility] Work Phone: Comment on above: Performed By: #### B MP #### [address] [address] Chloride [Moles/Vol] 101 mmol/L Normal 98 - 107 [facility] Work Phone: Comment on above: Performed By: #### B MP #### [address] [address] Creatinine [Mass/Vol] 0.58 mg/dL Normal 0.50 - 1.05 [facility] Work Phone: Comment on above: Reference Range: 0.5 0 - 1.05 Performed By: #### B MP #### [address] [address] Glucose [Mass/Vol] 263 mg/dL High 74 - 99 [facility] Work Phone: Comment on above: Performed By: #### B MP #### [address] [address] Potassium [Moles/Vol] 3.5 mmol/L Normal 3.5 - 5.3 [facility] Work Phone: Comment on above: Performed By: #### B MP #### [address] [address] Sodium [Moles/Vol] 135 mmol/L Low 136 - 145 [facility] Work Phone: Comment on above: Performed By: #### B MP #### [address] [address] Urea nitrogen [Mass/Vol] 12 mg/dL Normal 6 - 23 [facility] Work Phone: Comment on above: Performed By: #### B MP #### [address] [address] HEMOGLOBIN A1Con 05-24-2022 Glucose [Mass/Vol] 246 mg/dL Normal [facility] Comment on above: Performed By: #### H BA1E #### [address] [place] [address] HbA1c (Bld) [Mass fraction] 10.2 % Abnormal [facility] Comment on above: Result Comment: Diag nosis of Diabetes-Adults Non-Diabetic: < or = 5.6% Increased risk for developing diabetes: 5.7-6.4% Diagnostic of diabetes: > or = 6.5% . Monitoring of Diabetes Age (y) Therapeutic Goal (%) Adults: >18 <7.0 Pediatrics: 13-18 <7.5 7-12 <8.0 0- 6 7.5-8.5 [employer]. Diabetes Care 33(S1), Jun 2009. Performed By: #### H BA1E #### [address] [address] Hemoglobin A1Con 05-24-2022 Glucose [Mass/Vol] 246 mg/dL [facility] Work Phone: HbA1c (Bld) [Mass fraction] 10.2 % Abnormal [facility] Work Phone: Comment on above: Diagnosis of Diabete s-Adults Non-Diabetic: < or = 5.6% Increased risk for developing diabetes: 5.7-6.4% Diagnostic of diabetes: > or = 6.5%. Monitoring of Diabetes Age (y) Therapeutic Goal (%) Adults: >18 <7.0 Pediatrics: 13-18 <7.5 7-12 <8.0 0- 6 7.5-8.5 [employer]. Diabetes Care 33(S1), Jun 2009. Laboratory - Chemistry and C hemistry - challengeon 05-24-2022 CO2 [Moles/Vol] 24 mmol/L 21 - 32 [facility] Work Phone: No Panel Informationon 05-24 >90 >90 [facility] Work Phone: Comment on above: CALCULATIONS OF ASCENCION MATED GFR ARE PERFORMED USING THE 2020 CKD-EPI STUDY REFIT EQUATION WITHOUT THE RACE VARIABLE FOR THE IDMS-TRACEABLE CREATININE METHODS.https://jasn.asnjournals.org/content/early/ N.9146249928 [facility] Follow-up visit Diagnoses/Problems Hyperglycemia due to diabetes mellitus (250.02) (E11.65) Anxiety and depression (300.00,311) (F41.9,F32.A) Bipolar depression (296.50) (F31.9) Orders Hyperglycemia due to diabetes mellitus Start: Pioglitazone HCl - 15 MG Oral Tablet; Take 1 tablet daily Follow-up visit in 3 months Outpatient Follow-up Status: Hold For - Scheduling Requested for: [id number] Hemoglobin A1C; Status:Active; Requested for:22Aug2022; PMH: History [...] 25 MG TABS Vitals Vital Signs Recorded: 70Vfy7639 10:15AM Heart Rate94 Xkhauaqx827 Zrwikqcan43 Olcyzq257.48 cm Zuxcgz74.64 kg BMI Uhvqhjefnt63.92 kg/m2 BSA Calculated1.83 Tobacco Usea) Yes PHQ-2 [...] AND affect, Normal judgment. Results/Data Basic Metabolic Zwozd07Php7589 08:34AMRaberJamari Test NameResultFlagReference Glucose, Sbxcg326 mg/dLH74 - 99 Sodium, Wpkzi725 mmol/LL136 - 145 POTASSIUM3.5 mmol/L3.5 - 5.3 Chloride, Ckjof493 mmol/L98 - 107 Bicarbonate, Serum24 mmol/L21 - 32 Anion Gap, Serum14 mmol/L10 - 20 Blood Urea Nitrogen, Serum12 mg/dL6 - 23 CREATININE0.58 mg/dLSee Below Reference (more content not included)... Normal [facility] Tobacco Screening.on 022 Adult depression screening assessment Yes [facility] Work Phone: Tobacco use status [facility] a) Yes [facility] Work Phone: Office Visit ([facility] e)on 02-22-2022 Follow-up visit Diagnoses/Problems Hyperglycemia due to diabetes mellitus (250.02) (E11.65) Anxiety and depression (300.00,311) (F41.9,F32.A) Orders Anxiety and depression Follow-up visit in 3 months Outpatient Follow-up Status: Hold For - Scheduling Requested for: [id number] Basic Metabolic Panel; Status:Active; Requested for:05Ufm3667; Anxiety and depression, Hyperglycemia due to diabetes mellitus Hemoglobin A1C; Status:Active; Requested for:89Iiz3662; Health Maintenance Renew: Albuterol Sulfate HFA 108 [...] CapsuleSocHx: Current smoker Benadryl 25 MG TABS [place] Carbonate 300 MG Oral Capsule Vitals Vital Signs Recorded: 00Lko3125 08:55AM Heart Rate73 Qbxuruofhlv71 Ohkmvknp192 Lhvlljppf16 Height5 ft 2 in Innxti527 lb BMI Yertyedlxb11.56 kg/m2 BSA Calculated1.82 Tobacco Usea) Yes Patient encouraged to stop using tobacco productsYes Falls Screening (Age 18+)a) No falls within the last year O2 Khkjqocqfu43 Physical Exam General: Alert and oriented, No [...] Feb 22 2022 9:20AM EST (Author) Normal [employer] Office Visit (Family Junior harmon)on 01-04-2022 Follow-up visit Diagnoses/Problems Anxiety and depression [...] 25 MG TABS Vitals Vital Signs Recorded: 04Jan2022 01:47PM Heart Rate80 Xykkvvgo356 Ytwhobomz85 Height5 ft 2 in Slplvv468 lb 15.70 oz BMI Beiturqeea96.91 kg/m2 BSA Calculated1.78 Tobacco Usea) Yes Patient [...] Jan 04 2022 2:03PM EST (Author) Normal [facility] Tobacco Screening.on 022 Fall risk assessment a) No falls within the last year [facility] Work Phone: Tobacco use status [facility] a) Yes [facility] Work Phone: Tobacco Screening. Yes [facility] Work Phone: LMPon 12-25-2021 Last menstrual period start date 50Uwd3650 [facility] and [address] [place], [place] [address] Work Phone: MEMBER CERTIFICATION MANAGER - Office Visiton 12-07 MEMBER CERTIFICATION MANAGER - Office Visit Provider Marivel mark Patient [...] 09/27/2019 1:53:36 PM Reglan Unknown; Recorded By: Jante Ross; 09/27/2019 1:53:36 PM Zofran Unknown; Recorded [...] AND DRINK ONCE. Vitals Vital Signs Recorded: 27Qbd1821 08:36AM Tcyjsrln312 Vfqvfbsfk53 Height5 ft 2 in Jfinwf206 lb 0.08 oz BMI Pmergfybuw04.36 kg/m2 BSA Calculated1.77 [id number] Physical Exam Constitutional: Healthy-appearing in no physical distress. Head and Face: No obvious lesions. Neck: Supple with good range of motion. External genitalia revealed no lesions the vagina was well estrogenized the cervix was nonfriabl there was a thick white fzw-vpgv-cgzvnpwn discharge Musculoskeletal: Good mobility of her extremities. Psychiatric: Appropriately oriented. Wet mount was negative for trichomoniasis Signatures Electronically signed by : Jeanie Sutton DO; Dec 25 2021 8:50AM EST (Author) Normal [facility] GC + CHLAMYDIA BY AMPLIFIED DETECTIONon 12-18-2021 CHLAMYDIA TRACH.,AMPLIFIED Negative Normal Negative [facility] Comment on above: Result Comment: The APTIMA Combo 2 assay is FDA-approved for Chlamydia trachomatis and Neisseria gonorrhoeae testing on female endocervical and vaginal swabs, ThinPrep liquid pap samples, male urine samples and urethral swabs. Performance characteristics for Chlamydia trachomatis and Neisseria gonorrhoeae testing on specific sjl-KUC-uuhpnoed sample types (female urine samples) have been validated by [facility]. This laboratory is certified by CLIA to perform high complexity testing. Samples from all other sites are not validated for this method. Performed By: #### G [facility] #### [facility] [address] [place] [address] N.GONORRHEA,AMPLIFIED Negative Normal Negative [facility] Comment on above: Result Comment: The APTIMA Combo 2 assay is FDA-approved for Chlamydia trachomatis and Neisseria gonorrhoeae testing on female endocervical and vaginal swabs, ThinPrep liquid pap samples, male urine samples and urethral swabs. Performance characteristics for Chlamydia trachomatis and Neisseria gonorrhoeae testing on specific xjd-IAQ-etohslql sample types (female urine samples) have been validated by [facility]. This laboratory is certified by CLIA to perform high complexity testing. Samples from all other sites are not validated for this method. Performed By: #### [facility] #### [facility] [address] [place] [address] GC + CHLAMYDIA BY AMPLIFIED DETECTIONon 12-17-2021 Lab Specimen Source Urine Normal [facility] Comment on above: Performed By: #### G [facility] #### [facility] [address] [place] [address] GC + Chlamydia By Amplified Detectionon 12-17-2021 C. trachomatis rRNA SUMIT+probe Ql (Unsp spec) Negative Negative [facility] and [address] [place] Work Phone: Comment on above: The APTIMA Combo 2 a ssay is FDA-approved for Chlamydia trachomatis and Neisseria gonorrhoeae testing on female endocervical and vaginal swabs, ThinPrep liquid pap samples, male urine samples and urethral swabs. Performance characteristics for Chlamydia trachomatis and Neisseria gonorrhoeae testing on specific kru-LYI-epbfshxu sample types (female urine samples) have been validated by [facility]. This laboratory is certified by CLIA to perform high complexity testing. Samples from all other sites are not validated for this method. N. gonorrhoeae rRNA SUMIT+probe Ql (Unsp spec) Negative Negative [facility] and [address] [place] Work Phone: Comment on above: SOURCE: Urine The AP KATIA Combo 2 assay is FDA-approved for Chlamydia trachomatis and Neisseria gonorrhoeae testing on female endocervical and vaginal swabs, ThinPrep liquid pap samples, male urine samples and urethral swabs. Performance characteristics for Chlamydia trachomatis and Neisseria gonorrhoeae testing on specific ihf-CWC-xwafkhud sample types (female urine samples) have been validated by [facility]. This laboratory is certified by CLIA to perform high complexity testing. Samples from all other sites are not validated for this method. LMPon 12-17-2021 Last menstrual period start date [id number] [facility] and [address] [place] Work Phone: MEMBER CERTIFICATION MANAGER - Office Visiton 12-07 MEMBER CERTIFICATION MANAGER - Office Visit Diagnoses/Problems Assessed Chlamydia infection (079.98) (A74.9) Screening for STD (sexually transmitted disease) (V74.5) (Z11.3) Orders GC + Chlamydia By Amplified Detection; Status:In Progress - Specimen/Data Collected,Retrospective Authorization; Done: [id number] Provider Impressions Patient is a 26-year-old here [...] AND DRINK ONCE. Vitals Vital Signs Recorded: 47Ghq8009 09:02AM Nvdyprwj449 Erkkglsxc17 Height5 ft 2 in Npbqde493 lb 7.14 oz BMI Zpgqkjprro06.44 kg/m2 BSA Calculated1.77 [id number] Physical Exam Constitutional: Healthy-appearing in no physical distress. Head and Face: No gross lesions. Abdomen: Soft nontender. External genitalia revealed no lesions the vagina revealed moderate amount of blood Musculoskeletal: Good mobility of her extremities. Psychiatric: Appropriately oriented with normal mood and affect. Signatures Electronically signed by : Jeanie Sutton DO; Dec 17 2021 10:13AM EST (Author) Normal [facility] Cult, Genitalon 11-26-2021 Bacteria identified Aer cx Nom (Genital specimen) [facility] and [address] [employer] Work Phone: GC + Chlamydia By Amplified Detectionon 11-26-2021 C. trachomatis rRNA SUMIT+probe Ql (Unsp spec) Positive Abnormal Negative [facility] and [facility] [employer] Work Phone: Comment on above: The APTIMA Combo 2 a ssay is FDA-approved for Chlamydia trachomatis and Neisseria gonorrhoeae testing on female endocervical and vaginal swabs, ThinPrep liquid pap samples, male urine samples and urethral swabs. Performance characteristics for Chlamydia trachomatis and Neisseria gonorrhoeae testing on specific nsf-VWW-fscymgcl sample types (female urine samples) have been validated by [facility]. This laboratory is certified by CLIA to perform high complexity testing. Samples from all other sites are not validated for this method. N. gonorrhoeae rRNA SUMIT+probe Ql (Unsp spec) Negative Negative [facility] and [facility] [employer] Work Phone: Comment on above: SOURCE: Urine The AP KATIA Combo 2 assay is FDA-approved for Chlamydia trachomatis and Neisseria gonorrhoeae testing on female endocervical and vaginal swabs, ThinPrep liquid pap samples, male urine samples and urethral swabs. Performance characteristics for Chlamydia trachomatis and Neisseria gonorrhoeae testing on specific fqa-LOH-srmzyqfr sample types (female urine samples) have been validated by [facility]. This laboratory is certified by CLIA to perform high complexity testing. Samples from all other sites are not validated for this method. HIV 1/2 ANTIGEN/ANTIBODY SCR EEN WITH REFLEX TO CONFIRMATIONon 11-26-2021 HIV 1+2 Ab Qn (S) Non-Reactive See Below Women [facility] and [employer] Work Phone: Comment on above: SOURCE: Reference Ra nge: NONREACTIVE HIV Ag/Ab screen is performed using the Siemens iTracsll[employer] HIV Ag/Ab Combo assay which detects the presence of HIV p24 antigen as well as antibodies to HIV-1 (Group M and O) and HIV-2..No laboratory evidence of HIV infection. If acute HIV infection is suspected, consider testing for HIV RNA by PCR (viral load). HSV TYPE I / II, IGMon 11-26 HSV 1+2 IgM IA Qn (S) 0.78 {IV} <=0.89 [employer] Phone: Comment on above: INTERPRETIVE INFORMA TION: [...] for more than 12 months post-infection.Performed By: [facility] [place] [address] [id number] Director: Carlene Gore MD LMPon 11-26-2021 Last menstrual period start date 13Nov2021 [facility] ([email or web address]) Phone: Laboratory - Cytologyon 11-08 Cytology report Cyto stain.thin prep Doc (Cvx/Vag) [email or web address]) Phone: No Panel Informationon 11-26 >8.0 Abnormal [facility] ([email or web address]) Phone: Comment on above: POTENTIAL FOR CROSS- REACTIVITY BETWEENHSV I AND HSV II EXISTS.REF VALUESNEGATIVE <0.9EQUIVOCAL >=0.90 <=1.10POSITIVE >1.10 5.0 {INDEX} Abnormal [facility] [employer] [facility] Phone: Comment on above: REF VALUESNEGATIVE < 0.9EQUIVOCAL >=0.90 <=1.10POSITIVE >1.10 MEMBER CERTIFICATION MANAGER - Office Visiton 11-08 MEMBER CERTIFICATION MANAGER - Office Visit Diagnoses/Problems Assessed Screening for cervical cancer (V76.2) (Z12.4) Colitis, trichomonas (007.3) (A07.8) Infection due to Tritrichomonas species (136.8) (A07.8) Orders HIV 1/2 ANTIGEN/ANTIBODY SCREEN WITH REFLEX TO CONFIRMATION; Status:Active; Requested for:26Nov2021; HSV IgG1 And IgG2 Ab; Status:Active; Requested for:26Nov2021; HSV TYPE I / II, IGM; Status:Active; Requested for:26Nov2021; SYPHILIS SCREENING WITH REFLEX; Status:Active; Requested for:26Nov2021; PAP PROFESSOR OF ENGINEERING, Cytology; Status:In Progress - Specimen/Data Collected,Retrospective Authorization; Done: 26Nov2021 Last Menstrual Period (LMP): : 11/13/2021 PAP - Site : CERVICAL Cytology Order : ThinPrep PAP, Screening, HPV Reflex - Include Genotyping Provider Impressions Patient is a 26-year-old who comes in for routine PROFESSOR OF ENGINEERING exam. Pap smear was done. Currently declines contraception since she is not sexually active. Trichomoniasis found on exam. Will treat with Flagyl and will do a full STD panel. Follow-up in 3 weeks for test of cure. Also informed her that her partner needs to be treated. Chief Complaint Patient here today for yearly. Her last pap was 3-4 years ago in [place] that the patient states was normal. She has no concerns. She does not do a self breast exam. LMP:11/13/2021 History of Present IllnessPatient is a 26-year-old who comes in for routine PROFESSOR OF ENGINEERING exam. Patient reports she has not been [...] Weekly Vitals Vital Signs Recorded: 26Nov2021 09:02AM Xcwhbhpz444 Sjbhupmya30 Height5 ft 2 in Xkyomg673 lb BMI Scvwkuhoyq29.09 kg/m2 BSA Calculated1.78 [id number] Physical Exam Constitutional: Healthy-appearing woman in no distress. Head and Face: No obvious lesions. Neck: Supple without adenopathy. Cardiovascular: Regular rate and rhythm. Pulmonary: Clear to auscultation. Chest: Breasts were symmetrical with diffuse fibrocystic changes but no discrete masses discharge or retraction. Abdomen: Soft nontender no masses. External genitalia was slightly erythematous. The vagina was well estr (more content not included)... Normal [facility] SYPHILIS SCREENING WITH REFL EXon 11-26-2021 T. pallidum IgG+IgM IA Ql (S) Non-Reactive See Below [facility] and [facility] [employer] Work Phone: Comment on above: Reference Range: NON REACTIVENo significant level of Treponema pallidum antibody detected. Repeat testing in 2 to 4 weeks may be considered if early infection or incubating syphilis infection is suspected. Hemoglobin A1Con 11-12-2021 Glucose [Mass/Vol] 266 mg/dL [facility] Work Phone: HbA1c (Bld) [Mass fraction] 10.9 % Abnormal [facility] Work Phone: Comment on above: Diagnosis of Diabete s-Adults Non-Diabetic: < or = 5.6% Increased risk for developing diabetes: 5.7-6.4% Diagnostic of diabetes: > or = 6.5%. Monitoring of Diabetes Age (y) Therapeutic Goal (%) Adults: >18 <7.0 Pediatrics: 13-18 <7.5 7-12 <8.0 0- 6 7.5-8.5 [place] [employer]. Diabetes Care 33(S1), Jun 2009. Laboratory - Chemistry and C hemistry - challengeon 11-12-2021 Anion gap [Moles/Vol] 13 mmol/L 10 - 20 [facility] Work Phone: Calcium [Mass/Vol] 9.4 mg/dL 8.6 - 10.3 [facility] Work Phone: Chloride [Moles/Vol] 105 mmol/L 98 - 107 [facility] Work Phone: CO2 [Moles/Vol] 23 mmol/L 21 - 32 [facility] Work Phone: Creatinine [Mass/Vol] 0.51 mg/dL See Below [facility] Work Phone: Comment on above: Reference Range: 0.5 0 - 1.05 Glucose [Mass/Vol] 96 mg/dL 74 - 99 [facility] Work Phone: Potassium [Moles/Vol] 3.8 mmol/L 3.5 - 5.3 [facility] Work Phone: Sodium [Moles/Vol] 137 mmol/L 136 - 145 [facility] Work Phone: Urea nitrogen [Mass/Vol] 11 mg/dL 6 - 23 [facility] Work Phone: No Panel Informationon 11-12 >90 >90 [facility] Work Phone: Comment on above: CALCULATIONS OF ASCENCION MATED GFR ARE PERFORMED USING THE 2020 CKD-EPI STUDY REFIT EQUATION WITHOUT THE RACE VARIABLE FOR THE IDMS-TRACEABLE CREATININE METHODS.https://jasn.asnjournals.org/content/early/ N.0438394184 Office Visit (Family Medicin e)on 11-12-2021 Follow-up visit Diagnoses/Problems Seizure-like activity [...] in 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 due to mental illness has been suicidal recently but is improving lives alone dtr lives grandparents in [place] became homeless August 2021 activity walks and [...] Vital Signs Recorded: 12Nov2021 10:17AM Heart Rate95 Rjgtqfnl862 Ssbwrycep12 Mxlytu022.5 cm Yubowm02.74 kg BMI Elzpqwyfcj68.95 kg/m2 BSA Calculated1.82 Tobacco Usea) Yes PHQ-2 [...] Nov 12 2021 10:47AM EST (Author) Normal [employer] Tobacco Screening.on Adult depression screening assessment Yes -[facility] Work Phone: Tobacco use status CPHS a) Yes [facility] Work Phone: Auth for Release of Medical Recordson 08-07-2021 Auth for Release of Medical Records [id number] D:127 Normal [facility] Lab Reportson 08-06-2021 Lab Reports [id number]#1.00C D:127 Normal [facility] Medicine Office/Clini c Noteon 08-05-2021 Family Medicine Office/Clinic Note Chief Complaint VP [employer]ODUCTION here for check up. SHe is DM2, asthma. Sees Светлана for psych. History of Present Illness [employer]. 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 Here today requesting [...] trying to wean herself from use. Follows [facility] - feels depression and anxiety has been well controlled with current medication regimen -buspirone and fluoxetine. Also reports history of borderline personality disorder. 2019 - pap smear per patient. PROFESSOR OF ENGINEERING in [place], no longer follows them. OARRS reviewed and [...] and can add years to your life. 3-738-XRBE-NOW or www.smokefree.gov provide access to helpful resources [...] disorder) (F41.1: (more content not included)... Normal [facility] Comment on above: Result Comment: Elec tronically Signed By: Katiana BOYD CNP\.cora\Date and Time Signed: 08/05/21 08:57 EST Hemoglobin A1Con 08-05-2021 Glucose [Mass/Vol] 235 mg/dL Normal [facility] Comment on above: Result Comment: The ADA and AACC recommend providing the estimated average glucose result to permit better patient understanding of their HBA1c result. Performed By: #### C DP, CP, TSHX #### [facility] [address] [place], [place] [id number] Industrial [employer] Worker: Milly Truong MD #### LIPR, GLYHGB, URNMAB #### [facility] [address] [place], [place] [phone] Industrial Services Worker: Brice Jovel MD HbA1c (Bld) [Mass fraction] 9.8 % High 4.0-6.0 [facility] Comment on above: Performed By: #### C DP, CP, TSHX #### [facility] [address] [place], [place] [phone] Industrial Services Worker: Milly Truong MD #### LIPR, GLYHGB, URNMAB #### [address] [id number] Industrial Services Worker: Brice Jovel MD Lipid Profileon 08-04-2021 Cholesterol [Mass/Vol] 252 mg/dL High <200 [facility] Comment on above: Result Comment: Cholesterol Guidelines: <200 Desirable 200-240 Borderline >240 Undesirable Performed By: #### C DP, CP, TSHX #### [facility] [address] [place], [place] [phone] Industrial [employer] Worker: Milly Truong MD #### LIPR, GLYHGB, URNMAB #### [facility] [address] [place] [address] [employer] Worker: Brice Jovel MD Cholesterol in HDL [Mass/Vol] 43 mg/dL Normal >40 [facility] Comment on above: Result Comment: HDL Guidelines: <40 Undesirable 40-59 Borderline >59 Desirable Performed By: #### C DP, CP, TSHX #### [facility] [address] [place], [place] [id number] Industrial Services Worker: Milly Truong MD #### LIPR, GLYHGB, URNMAB #### [facility] [address] [place] [address] [id number] [employer] Worker: Brice Jovel MD Cholesterol in LDL [Mass/Vol] 180 mg/dL High 0-130 [facility] Comment on above: Result Comment: LDL Guidelines: <100 Desirable 100-129 Near to/above Desirable 130-159 Borderline >159 Undesirable Direct (measured) LDL and calculated LDL are not interchangeable tests. Performed By: #### C JALEEL BELL, TSHX #### [facility] [address] [place], [place] [id number] [employer] Worker: Milly Truong MD #### LIPR, GLYHGB, URNMAB #### [place] [address] [place], [place] [phone] Industrial Services Worker: Brice Jovel MD Cholesterol.total/Cho lesterol in HDL [Mass ratio] 5.9 {ratio} High <5 [facility] Comment on above: Performed By: #### C JALEEL BELL, TSHX #### [facility] [address] [place], [place] [phone] Industrial Services Worker: Milly Truong MD #### JAIMEE GLYHGB, URNMAB #### [facility] [address] [place] [address] [phone] Industrial Services Worker: Brice Jovel MD Triglyceride [Mass/Vol] 144 mg/dL Normal <150 [facility] Comment on above: Result Comment: Triglyceride Guidelines: <150 Desirable 150-199 Borderline 200-499 High >499 Very high Based on AHA Guidelines for fasting triglyceride, March 2012. Performed By: #### C JALEEL BELL, TSHX #### [facility] [address] [place], [place] [phone] Industrial Services Worker: Milly Truong MD #### LIPRebecca, GLYHGB, URNMAB #### [facility] [address] [place], [place] [phone] Industrial Services Worker: Brice Jovel MD Microalb.,Random Uron 2021 Creatinine [Mass/Vol] 194.3 mg/dL Normal 28.0-217.[address] [facility] Comment on above: Performed By: #### C DP CP, TSHX #### [facility] [address] [place] [address] Industrial Services Worker: Milly Truong MD #### LIPR, GLYHGB, URNMAB #### [place] [phone] Industrial Services Worker: Brice Jovel MD Microalb/Creat Ratio 20 mcg/mg creat Normal <25 [facility] Comment on above: Performed By: #### C JALEEL BELL, TSHX #### [facility] [address] [place] [address] Industrial Services Worker: Milly Truong MD #### LIPR, GLYHGB, URNMAB #### [place] [address] Industrial Services Worker: Brice Jovel MD Microalbumin conc. 38 mg/L High <21 [facility] Comment on above: Performed By: #### C JALEEL BELL, TSHX #### [facility] [address] [place] [address] Industrial Services Worker: Milly Truong MD #### LIPRebecca, GLYHGB, URNMAB #### [place] [address] Industrial Services Worker: Brice Jovel MD CBC with Diffon 08-03-2021 Abs. Basophil 0.00 k/uL Normal 0.0-0.2 [facility] Comment on above: Performed By: #### C RAY, CP, TSHX #### [facility] [address] [place] [address] Industrial Services Worker: Milly Truong MD #### LIPR, GLYHGB, URNMAB #### [place] [phone] Industrial Services Worker: Brice Jovel MD Abs.Neutrophil (Seg) 5.40 k/uL Normal 2.5-7.0 [facility] Comment on above: Performed By: #### C DP, CP, TSHX #### [facility] [address] [place], [place] [phone] [employer] Services Worker: Milly Truong MD #### LIPR, GLYHGB, URNMAB #### [address] [place] [place], [place] [phone] Industrial Services Worker: Brice Jovel MD Auto Diff Performed YES Normal [facility] Comment on above: Performed By: #### C DP, CP, TSHX #### [facility] [address] [place] [phone] [employer] Worker: Milly Truogn MD #### LIPR, GLYHGB, URNMAB #### [place] [phone] Industrial Services Worker: Brice Jovel MD Basophils/100 WBC (Bld) 0 % Normal 0-2 [facility] Comment on above: Performed By: #### C DP, CP, TSHX #### [facility] [address] [place] [phone] [employer] Worker: Milly Truong MD #### LIPR, GLYHGB, URNMAB #### [address] [place], [place] [phone] Industrial Services Worker: Brice Jovel MD Eosinophils (Bld) [#/Vol] 0.20 10*3/uL Normal 0.0-0.4 [facility] Comment on above: Performed By: #### C DP, CP, TSHX #### [facility] [address] [place], [place] [phone] Industrial Services Worker: Milly Truong MD #### LIPR, GLYHGB, URNMAB #### [address] [id number] Industrial Services Worker: Brice Jovel MD Eosinophils/100 WBC (Bld) 2 % Normal 0-5 [facility] Comment on above: Performed By: #### C DP, CP, TSHX #### [facility] [address] [place], [place] [phone] Industrial Services Worker: Milly Truong MD #### LIPR, GLYHGB, URNMAB #### [address] [phone] Industrial Services Worker: Brice Jovel MD Erythrocyte distribution width (RBC) [Ratio] 12.2 % Normal 12.1-15.2 [facility] Comment on above: Performed By: #### C DP, CP, TSHX #### [facility] [address] [place], [place] [phone] Industrial Services Worker: Milly Truong MD #### LIPRebecca, GLYHGB, URNMAB #### [address] [phone] Industrial Services Worker: Brice Jovel MD Hematocrit (Bld) [Volume fraction] 45.6 % Normal 36-46 [facility] Comment on above: Performed By: #### C DP, CP, TSHX #### [facility] [address] [place], [place] [phone] Industrial Services Worker: Milly Truong MD #### LIPR, GLYHGB, URNMAB #### [address] [phone] Industrial Services Worker: Brice Jovel MD Hemoglobin (Bld) [Mass/Vol] 15.9 g/dL Normal 12.0-16.0 [facility] Comment on above: Performed By: #### C DP, CP, TSHX #### [facility] [address] [place], [place] [phone] Industrial Services Worker: Milly Truong MD #### LIPR, GLYHGB, URNMAB #### [address] [place], [place] [phone] Industrial Services Worker: Brice Jovel MD Lymphocytes (Bld) [#/Vol] 2.50 10*3/uL Normal 1.0-4.8 [facility] Comment on above: Performed By: #### C DP, CP, TSHX #### [facility] [address] [place] [phone] Industrial Services Worker: Milly Truong MD #### LIPR, GLYHGB, URNMAB #### [place] [phone] Industrial Services Worker: rBice Jovel MD Lymphocytes/100 WBC (Bld) 30 % Normal 15-40 [facility] Comment on above: Performed By: #### C DP, CP, TSHX #### [facility] [address] [place] [phone] ( Industrial Services Worker: Milly Truong MD #### LIPR, GLYHGB, URNMAB #### [place] [phone] Industrial Services Worker: Brice Jovel MD MCH (RBC) [Entitic mass] 29.1 pg Normal 26-34 [facility] Comment on above: Performed By: #### C DP, CP, TSHX #### [facility] [address] [place] [phone] Industrial Services Worker: Milly Truong MD #### LIPR, GLYHGB, URNMAB #### [place] [phone] Industrial Services Worker: Brice Jovel MD MCHC (RBC) [Mass/Vol] 34.8 g/dL Normal 31-37 [facility] Comment on above: Performed By: #### C DP, CP, TSHX #### [facility] [address] [place] [phone] Industrial Services Worker: Milly Truong MD #### LIPR, GLYHGB, URNMAB #### [address] [phone] Industrial Services Worker: Brice Jovel MD MCV (RBC) [Entitic vol] 83.8 fL Normal 80-100 [facility] Comment on above: Performed By: #### C DP, CP, TSHX #### [facility] [address] [place] [phone] [employer] Services Worker: Milly Truong MD #### LIPR, GLYHGB, URNMAB #### [place] [address] Industrial Services Worker: Brice Jovel MD Monocytes (Bld) [#/Vol] 0.20 10*3/uL Normal 0.0-1.0 [facility] Comment on above: Performed By: #### C DP, CP, TSHX #### [facility] [address] [place] [phone] Industrial Services Worker: Milly Truong MD #### LIPRebecca, GLYHGB, URNMAB #### [address] [phone] Industrial Services Worker: Brice Jovel MD Monocytes/100 WBC (Bld) 2 % Low 4-8 [facility] Comment on above: Performed By: #### C DP, CP, TSHX #### [facility] [address] [place] [phone] Industrial Services Worker: Milly Truong MD #### LIPR, GLYHGB, URNMAB #### [address] [phone] Industrial Services Worker: Brice Jovel MD Neutrophil (Seg) 66 % Normal 47-75 [facility] Comment on above: Performed By: #### C DP, CP, TSHX #### [facility] [address] [place] [address] Industrial Services Worker: Milly Truong MD #### LIPR, GLYHGB, URNMAB #### [facility] [address] [place] [address] Industrial Services Worker: Brice Jovel MD Platelets (Bld) [#/Vol] 306 10*3/uL Normal 140-450 [facility] Comment on above: Performed By: #### C DP, CP, TSHX #### [facility] [address] [place], [place] [phone] Industrial Services Worker: Milly Truong MD #### LIPR, GLYHGB, URNMAB #### [address] [address] Industrial Services Worker: Brice Jovel MD RBC (Bld) [#/Vol] 5.45 10*6/uL High 4.0-5.2 [facility] Comment on above: Performed By: #### C DP, CP, TSHX #### [facility] [address] [place] [address] Industrial Services Worker: Milly Truong MD #### LIPR, GLYHGB, URNMAB #### [address] [place] [address] Industrial Services Worker: Brice Jovel MD WBC (Bld) [#/Vol] 8.3 10*3/uL Normal 3.5-11.0 [facility] Comment on above: Performed By: #### C DP, CP, TSHX #### [facility] [address] [place], [place] [phone] Industrial Services Worker: Milly Truong MD #### LIPR, GLYHGB, URNMAB #### [facility] [address] [place] [address] Industrial Services Worker: Brice Jovel MD Comp Metabolic Profon 02-25- 2022 (cont.) Normal [facility] Comment on above: Result Comment: Aver age GFR for 20-29 years old: 116 mL/min/1.73sq m Chronic Kidney Disease: <60 mL/min/1.73sq m Kidney failure: <15 mL/min/1.73sq m eGFR calculated using average adult body mass. Additional eGFR calculator available at: http://www.NowThis News/multiple_crcl_2011.htm Performed By: #### C DP, CP, TSHX #### [facility] [address] [place], [place] [phone] Industrial Services Worker: Milly Truong MD #### JAIMEE, GLYHGB, URNMAB #### [address] [phone] Industrial Services Worker: Brice Jovel MD Albumin [Mass/Vol] 4.3 g/dL Normal 3.5-5.2 [facility] Comment on above: Performed By: #### C DP, CP, TSHX #### [facility] [address] [place], [place] 1544690 Industrial Services Worker: Milly Truong MD #### JAIMEE GLYHGB, URNMAB #### [place] [place], [place] [phone] Industrial Services Worker: Brice Jovel MD Alkaline Phos 106 U/L High 35-104 [facility] Comment on above: Performed By: #### C DP, CP, TSHX #### [facility] [address] [place], [place] [phone] Industrial Services Worker: Milly Truong MD #### LIPRebecca, GLYHGB, URNMAB #### [address] [place], [place] [phone] Industrial Services Worker: Brice Jovel MD ALT [Catalytic activity/Vol] 19 U/L Normal 5-33 [facility] Comment on above: Performed By: #### C DP, CP, TSHX #### [facility] [address] [place], [place] [phone] Industrial Services Worker: Milly Truong MD #### LIPR, GLYHGB, URNMAB #### [address] [place] [place], [place] 7986408 Industrial Services Worker: Brice Jovel MD Anion gap [Moles/Vol] 13 mmol/L Normal 9-17 [facility] Comment on above: Performed By: #### C DP, CP, TSHX #### [facility] [address] [place], [place] [phone] Industrial Services Worker: Milly Truong MD #### LIPR, GLYHGB, URNMAB #### [address] [phone] Industrial Services Worker: Brice Jovel MD AST [Catalytic activity/Vol] 12 U/L Normal <32 [facility] Comment on above: Performed By: #### C DP, CP, TSHX #### [facility] [address] [place], [place] [phone] Industrial Services Worker: Milly Truong MD #### LIPR, GLYHGB, URNMAB #### [address] [phone] Industrial Services Worker: Brice Jovel MD Bilirubin [Mass/Vol] 0.37 mg/dL Normal 0.30-1.20 [facility] Comment on above: Performed By: #### C DP, CP, TSHX #### [facility] [address] [place], [place] [phone] Industrial Services Worker: Milly Truong MD #### LIPR, GLYHGB, URNMAB #### [address] [place], [place] [phone] Industrial Services Worker: Brice Jovel MD BUN/CRE Ratio 17 Normal 9-20 [facility] Comment on above: Performed By: #### C DP, CP, TSHX #### [facility] [address] [place], [place] [phone] Industrial Services Worker: Milly Truong MD #### LIPR, GLYHGB, URNMAB #### [address] [place], [place] 6064408 Industrial Services Worker: Brice Jovel MD Calcium [Mass/Vol] 9.4 mg/dL Normal 8.6-10.4 [facility] Comment on above: Performed By: #### C DP, CP, TSHX #### [facility] [address] [place], [place] 1968990 Industrial Services Worker: Milly Truong MD #### LIPR, GLYHGB, URNMAB #### [address] [phone] Industrial Services Worker: Brice Jovel MD Chloride [Moles/Vol] 94 mmol/L Low 98-107 [facility] Comment on above: Performed By: #### C DP, CP, TSHX #### [facility] [address] [place], [place] 4004790 Industrial Services Worker: Milly Truong MD #### LIPR, GLYHGB, URNMAB #### [address] [phone] Industrial Services Worker: Brice Jovel MD CO2 [Moles/Vol] 26 mmol/L Normal 20-31 [facility] Comment on above: Performed By: #### C DP, CP, TSHX #### [facility] [address] [place], [place] [phone] Industrial Services Worker: Milly Truong MD #### LIPR, GLYHGB, URNMAB #### [address] [phone] Industrial Services Worker: Brice Jovel MD Creatinine [Mass/Vol] 0.52 mg/dL Normal 0.50-0.90 [facility] Comment on above: Performed By: #### C DP, CP, TSHX #### [facility] [address] [place], [place] [phone] Industrial Services Worker: Milly Truong MD #### LIPR, GLYHGB, URNMAB #### [address] [phone] Industrial Services Worker: Brice Jvoel MD GFR, Amer >60 Normal >60 [facility] Comment on above: Performed By: #### C DP, CP, TSHX #### [facility] [address] [place], [place] [phone] Industrial Services Worker: Milly Truong MD #### LIPR, GLYHGB, URNMAB #### [address] [id number] Industrial Services Worker: Brice Jovel MD GFR,non Amer >60 Normal >60 [facility] Comment on above: Performed By: #### C DP, CP, TSHX #### [facility] [address] [place], [place] [id number] Industrial Services Worker: Milly Truong MD #### LIPR, GLYHGB, URNMAB #### [address] [id number] Industrial Services Worker: Brice Jovel MD Glucose [Mass/Vol] 291 mg/dL High 70-99 [facility] Comment on above: Performed By: #### C DP, CP, TSHX #### [facility] [address] [place], [place] [id number] Industrial Services Worker: Milly Truong MD #### LIPR, GLYHGB, URNMAB #### [address] [id number] Industrial Services Worker: Brice Jovel MD Potassium [Moles/Vol] 3.7 mmol/L Normal 3.7-5.3 [facility] Comment on above: Performed By: #### C JALEEL BELL, TSHX #### [facility] [address] [place] [address] Industrial Services Worker: Milly Truong MD #### LIPR, GLYHGB, URNMAB #### [address] [phone] Industrial Services Worker: Brice Jovel MD Protein [Mass/Vol] 8.0 g/dL Normal 6.4-8.3 [facility] Comment on above: Performed By: #### C JALEEL BELL, TSHX #### [facility] [address] [place], [place] [id number] Industrial Services Worker: Milly Truong MD #### LIPRebecca, GLYHGB, URNMAB #### [address] [id number] Industrial Services Worker: Brice Jovel MD Sodium [Moles/Vol] 133 mmol/L Low 135-144 [facility] Comment on above: Performed By: #### C JALEEL BELL, TSHX #### [facility] [address] [place], [place] [id number] Industrial Services Worker: Milly Truong MD #### LIPRebecca, GLYHGB, URNMAB #### [address] [address] Industrial Services Worker: Brice Jovel MD Urea nitrogen [Mass/Vol] 9 mg/dL Normal 6-20 [facility] Comment on above: Performed By: #### C RAY, CP, TSHX #### [facility] [address] [place], [place] [id number] Industrial Services Worker: Milly Truong MD #### LIPR, GLYHGB, URNMAB #### [address] [id number] Industrial Services Worker: Brice Jovel MD TSH w/reflex to FT4on 2021 TSH Qn 0.65 m[IU]/L Normal 0.30-5.00 [facility] Comment on above: Performed By: #### C DP, CP, TSHX #### [facility] [address] [place] [address] Industrial Services Worker: Milly Truong MD #### LIPR, GLYHGB, URNMAB #### [facility] [address] [place], [place] [id number] Industrial Services Worker: Brice Jovel MD Patient Educationon 08-02-19 Patient [...] plan? Your health care provider or certified pesticide applicator can help you make a plan for [...] ? Your health care provider or certified pesticide applicator can help you make a plan for [...] Document Reviewe (more content not included)... Normal [facility] Blood Pressure Cuff Sizeon 0 01-04-2021 Fall risk assessment a) No falls within the last year [facility] Work Phone: Tobacco use status CP a) Yes [facility] Work Phone: Blood Pressure Cuff Size Adult [facility] Work Phone: Blood Pressure Cuff Size Yes [facility] Work Phone: Blood Pressure Cuff Sizeon 0 11-02-2020 Fall risk assessment a) No falls within the last year [facility] Work Phone: Tobacco use status CP a) Yes [facility] Work Phone: Blood Pressure Cuff Size Adult [facility] Work Phone: Blood Pressure Cuff Size a) Yes [facility] Work Phone: Acetaminophen Level, Serumon 10-23-2020 Acetaminophen [Mass/Vol] ug/mL See Below [facility] Work Phone: Comment on above: Reference Range: 10. 0 - 30.0 Acetylsalicylic Acid Level, Serumon 10-23-2020 Salicylates [Mass/Vol] mg/dL 4 - 20 [facility] Work Phone: Alcohol, Serumon 10-23-2020 Ethanol [Mass/Vol] mg/dL [facility] Work Phone: Comment on above: FOR MEDICAL USE ONLY . .REF VALUES <10 Complete Blood Count + Diffe rentialon 10-23-2020 Basophils/100 WBC (Bld) 0.8 % 0.0 - 2.0 [facility] Work Phone: Erythrocyte distribution width (RBC) [Ratio] 12.7 % See Below [facility] Work Phone: Comment on above: Reference Range: 11. 5 - 14.5 Hematocrit (Bld) [Volume fraction] 44.6 % See Below [facility] Work Phone: Comment on above: Reference Range: 36. 0 - 46.0 Hemoglobin (Bld) [Mass/Vol] 15.2 g/dL See Below [facility] Work Phone: Comment on above: Reference Range: 12. 0 - 16.0 Lymphocytes/100 WBC (Bld) 23.6 % See Below [facility] Work Phone: Comment on above: Reference Range: 13. 0 - 44.0 MCHC (RBC) [Mass/Vol] 34.0 g/dL See Below [facility] Work Phone: Comment on above: Reference Range: 32. 0 - 36.0 MCV (RBC) [Entitic vol] 85 fL 80 - 100 [facility] Work Phone: Monocytes/100 WBC (Bld) 4.5 % 2.0 - 10.0 [facility] Work Phone: Neutrophils/100 WBC (Bld) 70.1 % See Below [facility] Work Phone: Comment on above: Reference Range: 40. 0 - 80.0 Platelets (Bld) [#/Vol] 245 10*3/uL 150 - 450 [facility] Work Phone: RBC (Bld) [#/Vol] 5.24 {x10E12/L} above high threshold See Below [facility] Work Phone: Comment on above: Reference Range: 4.0 0 - 5.20 WBC (Bld) [#/Vol] 9.7 10*3/uL 4.4 - 11.3 [facility] Work Phone: Complete Blood Count + Differential 0.10 {x10E9/L} See Below [facility] Work Phone: Comment on above: Reference Range: 0.0 0 - 0.10 Reference Range: 0.0 0 - 0.70 Complete Blood Count + Differential 0.40 {x10E9/L} See Below [facility] Work Phone: Comment on above: Reference Range: 0.1 0 - 1.00 Complete Blood Count + Differential 2.30 {x10E9/L} See Below [facility] Work Phone: Comment on above: Reference Range: 1.2 0 - 4.80 Complete Blood Count + Differential 6.80 {x10E9/L} See Below [facility] Work Phone: Comment on above: Reference Range: 1.2 0 - 7.70 Percent differential counts (%) should be interpreted in the context of the absolute cell counts (cells/L). Complete Blood Count + Differential 1.0 % 0.0 - 6.0 [facility] Work Phone: Coronavirus 2019 RNA by PCR, Symptomaticon 10-23-2020 Coronavirus 2019 RNA by PCR, Symptomatic Not detected Normal See Below [facility] Work Phone: Comment on above: SOURCE: Nasal, Nasop haryngealReference Range: Not Detected.This test has received FDA Emergency Use Authorization (EUA) and has been verified by [facility]. This test is only authorized for the duration of time that circumstances exist to justify the authorization of the emergency use of in vitro diagnostic tests for the detection of SARS-CoV-2 virus and/or diagnosis of COVID-19 infection under section 564(b)(1) of the Act, 21 U.S.C. 360bbb-3(b)(1), unless the authorization is terminated or revoked sooner. [facility] is certified under CLIA-88 as qualified to perform high complexity testing. Testing is performed in the [facility] laboratory located at [address] [place] [address].SARS-CoV-2/Flu/RSV Multiplex Test: Fact sheet for providers: https://www.fda.gov/media/627451/downloadFact sheet for patients: https://www.fda.gov/media/215277/download Laboratory - Chemistry and C hemistry - challengeon 10-23-2020 Albumin BCP dye [Mass/Vol] 4.1 g/dL 3.4 - 5.0 [facility] Work Phone: ALP [Catalytic activity/Vol] 107 U/L 33 - 110 [facility] Work Phone: ALT With P-5'-P [Catalytic activity/Vol] 26 U/L 7 - 45 [facility] Work Phone: Comment on above: Patients treated wit h Sulfasalazine may generate falsely decreased results for ALT. Anion gap [Moles/Vol] 13 mmol/L 10 - 20 [facility] Work Phone: AST With P-5'-P [Catalytic activity/Vol] 14 U/L 9 - 39 [facility] Work Phone: Bilirubin [Mass/Vol] 0.4 mg/dL 0.0 - 1.2 [facility] Work Phone: Calcium [Mass/Vol] 9.4 mg/dL 8.6 - 10.3 [facility] Work Phone: Chloride [Moles/Vol] 98 mmol/L 98 - 107 [facility] Work Phone: CO2 [Moles/Vol] 26 mmol/L 21 - 32 [facility] Work Phone: Creatinine [Mass/Vol] 0.54 mg/dL See Below [facility] Work Phone: Comment on above: Reference Range: 0.5 0 - 1.05 Glucose [Mass/Vol] 345 mg/dL above high threshold 74 - 99 [facility] Work Phone: Potassium [Moles/Vol] 4.0 mmol/L 3.5 - 5.3 [facility] Work Phone: Protein [Mass/Vol] 7.5 g/dL 6.4 - 8.2 [facility] Work Phone: Sodium [Moles/Vol] 133 mmol/L below low threshold 136 - 145 [facility] Work Phone: Urea nitrogen [Mass/Vol] 8 mg/dL 6 - 23 [facility] Work Phone: Laboratory - Drug toxicology on 10-23-2020 Amphetamines Screen Ql (U) Negative NEGATIVE [facility] Work Phone: Comment on above: CUTOFF LEVEL: 500 NG /ML Cross-reactivity has been reported with high concentrations of the following drugs: buproprion, chloroquine, chlorpromazine, ephedrine, mephentermine, fenfluramine, phentermine, phenylpropanolamine, pseudoephedrine, and propranolol. Barbiturates Screen Ql (U) Negative NEGATIVE [facility] Work Phone: Comment on above: CUTOFF LEVEL: 200 NG /ML Benzodiazepines Ql (U) Negative NEGATIVE [facility] Work Phone: Comment on above: CUTOFF LEVEL: 200 NG /ML Benzoylecgonine Screen Ql (U) Negative NEGATIVE [facility] Work Phone: Comment on above: CUTOFF LEVEL: 150 NG /ML Cannabinoids Screen Ql (U) Negative NEGATIVE [facility] Work Phone: Comment on above: CUTOFF LEVEL: 50 NG/ ML Methadone Screen Ql (U) Negative NEGATIVE [facility] Work Phone: Comment on above: CUTOFF LEVEL: 150 NG /ML The metabolite B-tgxyb-yezfhmuhrfprai (LAAM) is not detected by this method in concentrations that would be found in the urine of patients on LAAM therapy. Opiates Screen Ql (U) Negative NEGATIVE [facility] Work Phone: Comment on above: CUTOFF LEVEL: 300 NG /ML The opiate screen does not detect fentanyl, meperidine, or tramadol. Oxycodone is not consistently detected (refer to Oxycodone Screen, Urine result). oxyCODONE+oxyMORphone Screen Ql (U) Negative NEGATIVE [facility] Work Phone: Comment on above: CUTOFF LEVEL: 100 NG /ML This test will accurately detect both oxycodone and oxymorphone. Phencyclidine Ql (U) Negative NEGATIVE [facility] Work Phone: Comment on above: CUTOFF LEVEL: 25 NG/ ML Cross-reactivity has been reported with dextromethorphan. No Panel Informationon 10-23 >60 >60 [facility] Work Phone: Comment on above: CALCULATIONS OF ASCENCION MATED GFR ARE PERFORMED USING THE MDRD STUDY EQUATION FOR THE IDMS-TRACEABLE CREATININE METHODS. CLIN CHEM 2007;53:[id number] SEE BELOW [facility] Work Phone: Comment on above: Drug screen results are presumptive and should not be used to assess compliance with prescribed medication. Contact the performing [facility] laboratory to add-on definitive confirmatory [...] Radiologyon 10-23-2020 XR Chest Single view Normal [facility] Work Phone: Urinalysison 10-23-2020 Color (U) Straw See Below [facility] Work Phone: Comment on above: Reference Range: STR AW,YELLOW Glucose Ql (U) >=500(3+) Abnormal NEGATIVE [facility] Work Phone: Ketones Ql (U) 5(TRACE) Abnormal NEGATIVE [facility] Work Phone: Leukocyte esterase Test strip Ql (U) MODERATE(2+) Abnormal NEGATIVE [facility] Work Phone: pH (U) 5.0 [pH] 5.0 - 8.0 [facility] Work Phone: Protein (U) [Mass/Vol] Negative NEGATIVE [facility] Work Phone: RBC (U) [#/Vol] Negative NEGATIVE [facility] Work Phone: Specific gravity (U) [Rel density] 1.037 1 above high threshold See Below [facility] Work Phone: Comment on above: Reference Range: 1.0 05 - 1.035 Urinalysis Negative NEGATIVE [facility] Work Phone: Comment on above: CUTOFF LEVEL: 1 NG/M L The performance characteristics of this test have been determined by the individual laboratory site where testing is performed. This test has not been cleared or approved by the FDA; however, the FDA has determined that such clearance is not necessary. Urinalysis <2.0 0.0 - 1.9 [facility] Work Phone: Urinalysis HAZY CLEAR [facility] Work Phone: Urinalysis, Microscopicon Urinalysis, Microscopic 5 {/HPF} [facility] Work Phone: Urinalysis, Microscopic None 0-5 [facility] Work Phone: Urinalysis, Microscopic 19 {/HPF} Abnormal 0-5 [facility] Work Phone: EEG (STANDARD)on 07-19-2020 Srini Medina MD 07/19/2020 4:43 PM [facility] EEG Report Reason for EEG: Spells Summary: [...] epileptiform discharges or ictal activity was seen. [facility] COVID-19, MOLECULARon 2019 SARS-COV-2 RNA (JANIS) Not Detected Normal Not Detected [facility] Comment on above: Result Comment: This test [...] at the following links: For Healthcare Providers: https://www.fda.gov/media/792488/download For Patients: https://www.fda.gov/media/363366/download Performed By: #### L [id number] #### [facility] [address] [address] Regulo Hazel M.D. [id number] Hemoglobin A1Con 01-31-2020 HbA1c (Bld) [Mass fraction] 8.2 % [facility] Work Phone: Comment on above: Diagnosis of Diabete s-Adults Non-Diabetic: < or = 5.6% Increased risk for developing diabetes: 5.7-6.4% Diagnostic of diabetes: > or = 6.5%. Monitoring of Diabetes Age (y) Therapeutic Goal (%) Adults: >18 <7.0 Pediatrics: 13-18 <7.5 7-12 <8.0 0- 6 7.5-8.5 [employer]. Diabetes Care 33(S1), Jun 2009. HbA1c (Bld) [Mass fraction] 189 {MG/DL} [facility] Work Phone: Sedimentation Rateon 020 ESR (Bld) [Velocity] 19 mm/h [facility] Interpretation and review of laboratory results Normal [facility] Complete Blood Count + Diffe rentialon 09-28-2019 Basophils (Bld) [#/Vol] 0.10 {x10E9/L} See Below [facility] Work Phone: Comment on above: Reference Range: 0.0 0 - 0.10 Basophils/100 WBC (Bld) 0.8 % 0.0 - 2.0 [facility] Work Phone: Eosinophils (Bld) [#/Vol] 0.20 {x10E9/L} See Below [facility] Work Phone: Comment on above: Reference Range: 0.0 0 - 0.70 Eosinophils/100 WBC (Bld) 2.1 % 0.0 - 6.0 [facility] Work Phone: Erythrocyte distribution width (RBC) [Ratio] 12.7 % See Below [facility] Work Phone: Comment on above: Reference Range: 11. 5 - 14.5 Hematocrit (Bld) [Volume fraction] 42.0 % See Below [facility] Work Phone: Comment on above: Reference Range: 36. 0 - 46.0 Hemoglobin (Bld) [Mass/Vol] 14.4 g/dL See Below [facility] Work Phone: Comment on above: Reference Range: 12. 0 - 16.0 Lymphocytes (Bld) [#/Vol] 2.20 {x10E9/L} See Below [facility] Work Phone: Comment on above: Reference Range: 1.2 0 - 4.80 Lymphocytes/100 WBC (Bld) 29.7 % See Below [facility] Work Phone: Comment on above: Reference Range: 13. 0 - 44.0 MCHC (RBC) [Mass/Vol] 34.4 g/dL See Below [facility] Work Phone: Comment on above: Reference Range: 32. 0 - 36.0 MCV (RBC) [Entitic vol] 87 fL 80 - 100 [facility] Work Phone: Monocytes (Bld) [#/Vol] 0.40 {x10E9/L} See Below [facility] Work Phone: Comment on above: Reference Range: 0.1 0 - 1.00 Monocytes/100 WBC (Bld) 5.2 % 2.0 - 10.0 [facility] Work Phone: Neutrophils (Bld) [#/Vol] 4.70 {x10E9/L} See Below [facility] Work Phone: Comment on above: Reference Range: 1.2 0 - 7.70 Percent differential counts (%) should be interpreted in the context of the absolute cell counts (cells/L). Neutrophils/100 WBC (Bld) 62.2 % See Below [facility] Work Phone: Comment on above: Reference Range: 40. 0 - 80.0 Platelets (Bld) [#/Vol] 263 {x10E9/L} 150 - 450 [facility] Work Phone: RBC (Bld) [#/Vol] 4.85 {x10E12/L} See Below [facility] Work Phone: Comment on above: Reference Range: 4.0 0 - 5.20 WBC (Bld) [#/Vol] 0.1 {/100_WBC} [facility] Work Phone: WBC (Bld) [#/Vol] 7.5 {x10E9/L} 4.4 - 11.3 [facility] Work Phone: HCG, Beta Quantitativeon HCG.beta subunit Qn m[IU]/mL [facility] Work Phone: Comment on above: Low-level positive [...] HCG measurement is performed using the [employer] Access Immunoassay which detects intact HCG and free beta HCG subunit. This test is not indicated for use as a tumor marker. HCG testing is performed using a different test methodology at [facility] than other [facility]. Direct result comparison should only be made within the same method. REF VALUESNON FEMALE <5MALES <5 Hemoglobin A1Con 09-28-2019 HbA1c (Bld) [Mass fraction] 7.2 % [facility] Work Phone: Comment on above: Diagnosis of Diabete s-Adults Non-Diabetic: < or = 5.6% Increased risk for developing diabetes: 5.7-6.4% Diagnostic of diabetes: > or = 6.5%. Monitoring of Diabetes Age (y) Therapeutic Goal (%) Adults: >18 <7.0 Pediatrics: 13-18 <7.5 7-12 <8.0 0- 6 7.5-8.5 [employer]. Diabetes Care 33(S1), Jun 2009. HbA1c (Bld) [Mass fraction] 160 {MG/DL} [facility] Work Phone: Metabolic Panelon 09-28-2019 Anion gap [Moles/Vol] 11 mmol/L 10 - 20 [facility] Work Phone: Calcium [Mass/Vol] 9.6 mg/dL 8.6 - 10.3 [facility] Work Phone: Chloride [Moles/Vol] 104 mmol/L 98 - 107 [facility] Work Phone: CO2 [Moles/Vol] 26 mmol/L 21 - 32 [facility] Work Phone: Creatinine [Mass/Vol] 0.65 mg/dL See Below [facility] Work Phone: Comment on above: Reference Range: 0.5 0 - 1.05 Glucose [Mass/Vol] 252 mg/dL above high threshold 74 - 99 [facility] Work Phone: Potassium [Moles/Vol] 3.8 mmol/L 3.5 - 5.3 [facility] Work Phone: Sodium [Moles/Vol] 137 mmol/L 136 - 145 [facility] Work Phone: Urea nitrogen [Mass/Vol] 14 mg/dL 6 - 23 [facility] Work Phone: Otheron 09-28-2019 >60 >60 [facility] Work Phone: Comment on above: CALCULATIONS OF ASCENCION MATED GFR ARE PERFORMED USING THE MDRD STUDY EQUATION FOR THE IDMS-TRACEABLE CREATININE METHODS. CLIN CHEM 2007;53:766-72 Thyroidon 09-28-2019 TSH Qn 0.54 {mIU/L} See Below [facility] Work Phone: Comment on above: Reference Range: 0.4 4 - 3.98 Note new pediatric reference range as of 08/12/2019. TSH testing is performed using different testing methodology at [facility] than at other [facility]. Direct result comparisons should only be made within the same method. HCG, Beta Quantitativeon HCG.beta subunit Qn m[IU]/mL [facility] and [employer] Work Phone: Comment on above: Low-level positive [...] HCG measurement is performed using the [place] Access Immunoassay which detects intact HCG and free beta HCG subunit. This test is not indicated for use as a tumor marker. HCG testing is performed using a different test methodology at [facility] than other [facility]. Direct result comparison should only be made within the same method. REF VALUESNON FEMALE <5MALES <5 IO HCG, Urine Test on 05-13-2019 HCG ( test) Ql (U) Negative [facility] [employer] Work Phone: Comment on above: MEDLINE [id number] P 10/06/2020 URINALYSISon 03-21-2019 Bacteria Auto Ql (U) None Seen None Se en /hpf [facility] Bilirubin Ql (U) Negative Negative [facility] [employer] automated (U) Hazy Abnormal Clear [facility] Color (U) Yellow Colorless, Yellow [facility] Epithelial cells.squamous Auto (Urine sed) [#/Area] 4 [facility] Glucose Auto test strip (U) [Mass/Vol] Negative Negative mg/dL [facility] Hemoglobin Auto test strip Ql (U) Negative Negative [facility] Interpretation and review of laboratory results Abnormal [facility] Ketones (U) [Mass/Vol] Negative Negative mg/dL [facility] Leukocyte esterase Auto test strip Ql (U) Trace Abnormal Negative [facility] Mucus Auto (Urine sed) [#/Area] Rare None Seen, Rare /lpf [facility] Nitrite Auto test strip Ql (U) Negative Negative [facility] pH (U) 6.0 [pH] [facility] Protein (U) [Mass/Vol] Negative Negative mg/dL [facility] RBC Auto (Urine sed) [#/Area] <1 [facility] Specific gravity (U) [Rel density] 1.020 [facility] S[place] Auto (Urine sed) [#/Area] Present Abnormal None Seen /hpf [facility] Urobilinogen (U) [Mass/Vol] >=4.0 Abnormal <2.0 mg/dL [facility] WBC Auto (Urine sed) [#/Area] 1 [facility] Microscopic examinat ion is performed on all urinalysis samples and only positive findings are reported. The test for blood on the chemical analytic portion of urinalysis may also be positive due to hemoglobinuria and myoglobinuria and if red blood cells are present they are quantified by microscopic examination. [facility] hCG, Blood,QUALitativeon Beta HCG ( test) Ql Negative Negative [facility] Interpretation and review of laboratory results Normal [facility] Negative: The result is less than or equal to 5 mIU/mL of HCG. [facility] Alcohol, Medicalon 9 Ethanol [Mass/Vol] mg/dL <10.00 mg/dL [facility] Interpretation and review of laboratory results Normal [facility] DRUGS OF ABUSE SCREEN, URINE on 03-11-2019 Amphetamines Ql (U) None Detected None Detected [facility] Comment on above: Urine Amphetamine Cu toff: < 1000 ng/mL = None Detected Barbiturates Screen Ql (U) None Detected None Detected [facility] Comment on above: Urine Barbiturates C utoff: < 200 ng/mL = None Detected Benzodiazepines Ql (U) None Detected None Detected [facility] Comment on above: Urine Benzodiazepine Cutoff: < 200 ng/mL = None Detected Cannabinoids Screen Ql (U) None Detected None Detected [facility] Comment on above: Urine Cannabinoids C utoff: < 50 ng/mL = None Detected Cocaine Ql (U) None Detected None Detected [facility] Comment on above: Urine Cocaine Cutoff : < 300 ng/mL = None Detected Interpretation and review of laboratory results Normal [facility] Methadone Screen Ql (U) None Detected None Detected [facility] Comment on above: Urine Methadone Cuto ff: < 300 ng/mL = None Detected Opiates Screen Ql (U) None Detected None Detected [facility] Comment on above: Urine Opiates Cutoff : < 300 ng/mL = None Detected Oxycodone Ql (U) None Detected None Detected [facility] Comment on above: Urine Oxycodone Cuto ff: < 100 ng/mL = None Detected Screen results shoul d be used for treatment purposes only. [facility] Otheron 03-11-2019 Extra Tube Hold for add-ons. [facility] Comment on above: Auto resulted. URINALYSISon 03-11-2019 Bacteria Auto Ql (U) None Seen None Se en /hpf [facility] Bilirubin Ql (U) Negative Negative [facility] th [employer] automated (U) Hazy Abnormal Clear [facility] Color (U) Yellow Colorless, Yellow [facility] Epithelial cells.squamous Auto (Urine sed) [#/Area] 6 High [facility] Glucose Auto test strip (U) [Mass/Vol] Negative Negative mg/dL [facility] Hemoglobin Auto test strip Ql (U) Negative Negative [facility] Interpretation and review of laboratory results Abnormal [facility] Ketones (U) [Mass/Vol] Trace Abnormal Negative mg/dL [facility] Leukocyte esterase Auto test strip Ql (U) Negative Negative [facility] Mucus Auto (Urine sed) [#/Area] Few Abnormal None Seen, Rare /lpf [facility] Nitrite Auto test strip Ql (U) Negative Negative [facility] pH (U) 5.0 [pH] [facility] Protein (U) [Mass/Vol] Negative Negative mg/dL [facility] RBC Auto (Urine sed) [#/Area] 2 [facility] Specific gravity (U) [Rel density] 1.029 High [facility] Transitional cells Computer assisted (U) [#/Area] <1 [facility] Urobilinogen (U) [Mass/Vol] 2.0 mg/dL Abnormal <2.0 [facility] WBC Auto (Urine sed) [#/Area] 2 [facility] Microscopic examinat ion is performed on all urinalysis samples and only positive findings are reported. The test for blood on the chemical analytic portion of urinalysis may also be positive due to hemoglobinuria and myoglobinuria and if red blood cells are present they are quantified by microscopic examination. [facility] URINE HCG QUALon 03-11-2019 Beta HCG ( test) Ql (U) Negative Normal NEGATIVE [facility] Comment on above: Performed By: #### U HCGT #### Testing performed at [facility] [address] [facility] [place] [address] Urine Pregnancyon 03-11-2019 HCG ( test) Ql (U) Negative Negative [facility] Interpretation and review of laboratory results Normal [facility] Alcohol, Medicalon 9 Ethanol [Mass/Vol] mg/dL <10.00 mg/dL [facility] Interpretation and review of laboratory results Normal [facility] DRUGS OF ABUSE SCREEN, URINE on 02-10-2019 Amphetamines Ql (U) None Detected None Detected [facility] Comment on above: Urine Amphetamine Cu toff: < 1000 ng/mL = None Detected Barbiturates Screen Ql (U) None Detected None Detected [facility] Comment on above: Urine Barbiturates C utoff: < 200 ng/mL = None Detected Benzodiazepines Ql (U) None Detected None Detected [facility] Comment on above: Urine Benzodiazepine Cutoff: < 200 ng/mL = None Detected Cannabinoids Screen Ql (U) None Detected None Detected [facility] Comment on above: Urine Cannabinoids C utoff: < 50 ng/mL = None Detected Cocaine Ql (U) None Detected None Detected [facility] Comment on above: Urine Cocaine Cutoff : < 300 ng/mL = None Detected Interpretation and review of laboratory results Normal [facility] Methadone Screen Ql (U) None Detected None Detected [facility] Comment on above: Urine Methadone Cuto ff: < 300 ng/mL = None Detected Opiates Screen Ql (U) None Detected None Detected [facility] Comment on above: Urine Opiates Cutoff : < 300 ng/mL = None Detected Oxycodone Ql (U) None Detected None Detected [facility] Comment on above: Urine Oxycodone Cuto ff: < 100 ng/mL = None Detected Screen results shoul d be used for treatment purposes only. [facility] Otheron 02-10-2019 Extra Tube Hold for add-ons. [facility] Comment on above: Auto resulted. Urine Pregnancyon 02-10-2019 HCG ( test) Ql (U) Negative Negative [facility] Interpretation and review of laboratory results Normal [facility] Hemoglobin A1con 01-01-2019 HbA1c (Bld) [Mass fraction] 7.1 % High 4.3-5.6 [facility] Comment on above: Performed By: #### H BA1C #### [facility] Routine Lab [address] [place], [place] [address] HbA1c (Bld) [Mass fraction] 157 mg/dL Normal [facility] Comment on above: Performed By: #### H BA1C #### [facility] Routine Lab [address] [place], [place] [address] URINALYSISon 10-07-2018 Bacteria Auto Ql (U) Rare Abnormal None Se en /hpf [facility] Bilirubin Ql (U) Negative Negative [facility] th Clarity Refractometry automated (U) Hazy Abnormal Clear [facility] Color (U) Yellow Colorless, Yellow [facility] Epithelial cells.squamous Auto (Urine sed) [#/Area] 8 High [facility] Glucose Auto test strip (U) [Mass/Vol] 150 Abnormal Negative mg/dL [facility] Hemoglobin Auto test strip Ql (U) Negative Negative [facility] Interpretation and review of laboratory results Abnormal [facility] Ketones (U) [Mass/Vol] >=80 Abnormal Negative mg/dL [facility] Leukocyte esterase Auto test strip Ql (U) Small Abnormal Negative [facility] Nitrite Auto test strip Ql (U) Negative Negative [facility] pH (U) 5.0 [pH] [facility] Protein (U) [Mass/Vol] Negative Negative mg/dL [facility] RBC Auto (Urine sed) [#/Area] 2 [facility] Specific gravity (U) [Rel density] 1.014 [facility] Urobilinogen (U) [Mass/Vol] <2.0 <2.0 mg/dL [facility] WBC Auto (Urine sed) [#/Area] 17 High [facility] Microscopic examinat ion is performed on all urinalysis samples and only positive findings are reported. The test for blood on the chemical analytic portion of urinalysis may also be positive due to hemoglobinuria and myoglobinuria and if red blood cells are present they are quantified by microscopic examination. [facility] Urine Pregnancyon 10-07-2018 HCG ( test) Ql (U) Negative Negative [facility] Interpretation and review of laboratory results Normal [facility] XR CHEST AP/PA AND LATon Cholesterol [Mass/Vol] 1. No acute cardiopulmonary process. 2. Cholecystectomy. S[facility] Workstation ID: [id number] [facility] EXAMINATION: XR CHES T AP/PA AND [...] abnormality noted. The gallbladder is surgically absent. [facility], Rad In [facility] - 10/07/2018 2:37 AM EDT EXAMINATION: XR [...] 1. No acute cardiopulmonary process. 2. Cholecystectomy. [facility] Workstation ID: [id number] [facility] POC Glucoseon 10-06-2018 Glucose [Mass/Vol] 228 mg/dL High 65 - 99 mg/dL [facility] Interpretation and review of laboratory results Abnormal [facility] POC Glucoseon 10-05-2018 Glucose [Mass/Vol] 338 mg/dL High 65 - 99 mg/dL [facility] Interpretation and review of laboratory results Abnormal [facility] Glucose [Mass/Vol] 383 mg/dL High 65 - 99 mg/dL [facility] Interpretation and review of laboratory results Abnormal [facility] XR CHEST AP/PA AND LATon No acute cardiopulmonary disease. [facility] Workstation ID: [id number] [facility] CLINICAL HISTORY: Shortness of breath. EXAMINATION: PA AND LATERAL CHEST: 10/04/2018. COMPARISON: PA and lateral chest 03/29/2016. FINDINGS: Two views in 3 films are provided which demonstrate there is some motion artifact on the AP view chest. The visualized osseous structures, heart, mediastinum are normal. The aorta has normal contour. Lungs appear clear. There is no congestive heart failure or pneumothorax. [facility] Interface, Rad In [facility] - 10/05/2018 1:48 AM EDT CLINICAL HISTORY: [...] or pneumothorax. IMPRESSION: No acute cardiopulmonary disease. [facility] Workstation ID: [id number] [facility] Beta-Hydroxybutyrateon 10-04 Beta hydroxybutyrate [Moles/Vol] 0.2 mmol/L 0 - 0.3 mmol/L [facility] Interpretation and review of laboratory results Normal [facility] CBC WITH AUTO DIFFERENTIALon 10-04-2018 Basophils (Bld) [#/Vol] 0.04 10*3/uL [facility] Basophils/100 WBC (Bld) 0.4 % [facility] Eosinophils (Bld) [#/Vol] 0.23 10*3/uL [facility] Eosinophils/100 WBC (Bld) 2.6 % [facility] Erythrocyte distribution width (RBC) [Entitic vol] 12.2 % 11.6 - 14.8 % [facility] Hematocrit (Bld) [Volume fraction] 42.3 % 36 - 46 % [facility] Hemoglobin (Bld) [Mass/Vol] 14.5 g/dL 12 - 16 g/dL [facility] Immature granulocytes (Bld) [#/Vol] 0.03 10*3/uL [facility] Immature granulocytes/100 WBC (Bld) 0.30 % [facility] Comment on above: The IG parameter is the percentage of metamyelocytes, myelocytes, and promyelocytes. Lymphocytes (Bld) [#/Vol] 1.76 10*3/uL [facility] Lymphocytes/100 WBC (Bld) 19.8 % [facility] MCH (RBC) [Entitic mass] 28.3 pg 26 - 34 pg [facility] MCHC (RBC) [Mass/Vol] 34.3 g/dL 31 - 37 g/dL [facility] MCV (RBC) [Entitic vol] 82.6 fL 80 - 100 fL [facility] Monocytes (Bld) [#/Vol] 0.47 10*3/uL [facility] Monocytes/100 WBC (Bld) 5.3 % [facility] Neutrophils (Bld) [#/Vol] 6.37 10*3/uL [facility] Neutrophils/100 WBC (Bld) 71.6 % [facility] Nucleated RBC (Bld) [#/Vol] 0.00 10*3/uL [facility] Nucleated RBC/100 WBC (Bld) [Ratio] 0.0 % [facility] Platelet mean volume (Bld) [Entitic vol] 10.4 fL 9 - 15.5 fL [facility] Platelets (Bld) [#/Vol] 248 10*3/uL [facility] RBC (Bld) [#/Vol] 5.12 10*6/uL [facility] WBC (Bld) [#/Vol] 8.90 10*3/uL [facility] Comprehensive Metabolic Pane saleem 10-04-2018 Albumin [Mass/Vol] 4.0 g/dL 3.2 - 5.2 g/dL [facility] ALP [Catalytic activity/Vol] 90 U/L 40 - 140 U/L [facility] ALT [Catalytic activity/Vol] 28 U/L 14 - 65 U/L [facility] Anion gap [Moles/Vol] 12 mmol/L 10 - 2 0 mmol/L [facility] AST [Catalytic activity/Vol] 14 U/L 0 - 45 U/L [facility] Bilirubin [Mass/Vol] 0.3 mg/dL 0 - 1.3 mg/dL [facility] Calcium [Mass/Vol] 9.0 mg/dL 8.4 - 10. 2 mg/dL [facility] Chloride [Moles/Vol] 102 mmol/L 98 - 10 8 mmol/L [facility] Creatinine [Mass/Vol] 0.86 mg/dL 0.4 - 1.1 mg/dL [facility] GFR/1.73 sq M predicted among non-blacks MDRD (S/P/Bld) [Vol rate/Area] The eGFR should be used for monitoring renal function only and not for medication dosing. [facility] GFR/1.73 sq M.predicted CKD-EPI (S/P/Bld) [Vol rate/Area] 96 >=60 mL/min/1.73 m2 [facility] Glucose [Mass/Vol] 460 mg/dL Critically high 65 - 9 9 mg/dL [facility] HCO3 [Moles/Vol] 26 mmol/L 21 - 32 mmol/L [facility] Potassium [Moles/Vol] 4.1 mmol/L 3.5 - 5.1 mmol/L [facility] Protein [Mass/Vol] 8.0 g/dL 6 - 8 g/dL [facility] alth Sodium [Moles/Vol] 136 mmol/L 135 - 145 mmol/L [facility] Urea nitrogen [Mass/Vol] 14 mg/dL 8 - 25 mg/dL [facility] Urea nitrogen/Creatinine [Mass ratio] 16.3 mg/mg [facility] D-DIMER, QUANTITATIVEon 09-08 Fibrin D-dimer FEU (PPP) [Mass/Vol] 0.31 0.27 - 0.49 mcg/mL FEU [facility] Interpretation and review of laboratory results Normal [facility] A D-dimer concentrat ion of <0.5 micrograms per milliliter FEU is considered a low probability for pulmonary embolus (PE) and deep venous thrombosis (DVT). Results of this test should always be interpreted in conjunction with the patient's medical history,clinical presentation, and other findings. Clinical diagnosis should not be based on the results of the D-dimer alone. [facility] Otheron 10-04-2018 Extra Tube Hold for add-ons. [facility] Comment on above: Auto resulted. Interpretation and review of laboratory results Abnormal [facility] POC ARTERIAL BLOOD GAS PANEL -PULM - RALSon 10-04-2018 Alveolar-arterial oxygen Partial pressure difference 16.2 mm Hg [facility] Base excess Calc (Bld) [Moles/Vol] -0.9 mmol/L [facility] Breath rate setting Ventilator synchronized intermittent mandatory 0 [facility] CO2 (Bld) [Partial pressure] 39.4 mm[Hg] [facility] HCO3 (Bld) [Moles/Vol] 24.0 mmol/L 22 - 26 mmol/L [facility] Hematocrit (BldA) [Volume fraction] 44.4 % 36 - 46 % [facility] Hemoglobin (Bld) [Mass/Vol] 14.5 g/dL 12 - 16 g/dL [facility] Inhaled oxygen concentration 21 % [facility] Oxygen (Bld) [Partial pressure] 83 mm[Hg] [facility] pH (Bld) 7.39 [pH] [facility] SaO2% (BldA) [Mass fraction] 96.8 % 92 - 99 % [facility] Specimen source Nom (Unsp spec) Brachial, right [facility] Tidal volume setting Ventilator 0 [facility] POC Glucoseon 10-04-2018 Glucose [Mass/Vol] 377 mg/dL High 65 - 99 mg/dL [facility] Interpretation and review of laboratory results Abnormal [facility] Glucose [Mass/Vol] 442 mg/dL Critically high 65 - 9 9 mg/dL [facility] Interpretation and review of laboratory results Abnormal [facility] Critical result acte d upon time of test. Test performed at bedside. [facility] URINALYSISon 10-04-2018 Bacteria Auto Ql (U) None Seen None Se en /hpf [facility] Bilirubin Ql (U) Negative Negative [facility] th Clarity Refractometry automated (U) Clear Clear [facility] Color (U) Colorless Colorless, Yellow [facility] Epithelial cells.squamous Auto (Urine sed) [#/Area] 4 [facility] Glucose Auto test strip (U) [Mass/Vol] >=500 Abnormal Negative mg/dL [facility] Hemoglobin Auto test strip Ql (U) Negative Negative [facility] Ketones (U) [Mass/Vol] Negative Negative mg/dL [facility] Leukocyte esterase Auto test strip Ql (U) Negative Negative [facility] Nitrite Auto test strip Ql (U) Negative Negative [facility] pH (U) 7.0 [pH] [facility] Protein (U) [Mass/Vol] Negative Negative mg/dL [facility] RBC Auto (Urine sed) [#/Area] <1 [facility] Specific gravity (U) [Rel density] 1.018 [facility] Urobilinogen (U) [Mass/Vol] <2.0 <2.0 mg/dL [facility] WBC Auto (Urine sed) [#/Area] 1 [facility] Microscopic examinat ion is performed on all urinalysis samples and only positive findings are reported. The test for blood on the chemical analytic portion of urinalysis may also be positive due to hemoglobinuria and myoglobinuria and if red blood cells are present they are quantified by microscopic examination. [facility] Urine Pregnancyon 10-04-2018 HCG ( test) Ql (U) Negative Negative [facility] Interpretation and review of laboratory results Normal [facility] BHCG,QUANTITATIVEon 09-14-19 19 BHCG,QUANTITATIVE 0.00 MIU/ML Normal [facility] Comment on above: Result Comment: BHCG INTERPRETIVE RANGES: NON FEMALE 0-6 MIU/ML MALE [...] CBC, CMPF, BHCG2 #### Testing performed at [address] [address] CBCon 09-13-2018 ABSOLUTE BAS 0.1 X10 Normal [facility] Comment on above: Performed By: #### A CBC, CMPF, BHCG2 #### Testing performed at [address] [address] ABSOLUTE EOS 0.30 X10 Normal [facility] Comment on above: Performed By: #### A CBC, CMPF, BHCG2 #### Testing performed at [address] [address] ABSOLUTE NEUTROPHIL COUNT 4.7 x10 Normal 1.0-7.0 [facility] Comment on above: Performed By: #### A CBC, CMPF, BHCG2 #### Testing performed at [address] [address] Basophils/100 WBC (Bld) 0.6 % Normal 0.0-2.0 [facility] Comment on above: Performed By: #### A CBC, CMPF, BHCG2 #### Testing performed at [address] [address] DTYPE AUTO DIFF Normal [facility] Comment on above: Performed By: #### A CBC, CMPF, BHCG2 #### Testing performed at [address] [address] Eosinophils/100 WBC (Bld) 3.9 % Normal 0.0-11.0 [facility] Comment on above: Performed By: #### A CBC, CMPF, BHCG2 #### Testing performed at [address] [address] Lymphocytes (Bld) [#/Vol] 3.30 X10 Normal [facility] Comment on above: Performed By: #### A CBC, CMPF, BHCG2 #### Testing performed at [address] [address] Lymphocytes/100 WBC (Bld) 36.9 % Normal 20.0-55.0 [facility] Comment on above: Performed By: #### A CBC, CMPF, BHCG2 #### Testing performed at [address] [address] Monocytes (Bld) [#/Vol] 0.5 X10 Normal [facility] Comment on above: Performed By: #### A CBC, CMPF, BHCG2 #### Testing performed at [address] [address] Monocytes/100 WBC (Bld) 5.5 % Normal 0.0-10.0 [facility] Comment on above: Performed By: #### A CBC, CMPF, BHCG2 #### Testing performed at [address] [address] Neutrophils/100 WBC (Bld) 53.1 % Normal 37.0-75.0 [facility] Comment on above: Performed By: #### A CBC, CMPF, BHCG2 #### Testing performed at [address] [address] Erythrocyte distribution width (RBC) [Ratio] 12.9 % Normal 11.5-14.5 [facility] Comment on above: Performed By: #### A CBC, CMPF, BHCG2 #### Testing performed at [address] [address] Hematocrit (Bld) [Volume fraction] 44.2 % Normal 36.0-48.0 [facility] Comment on above: Performed By: #### A CBC, CMPF, BHCG2 #### Testing performed at [address] [address] Hemoglobin (Bld) [Mass/Vol] 15.7 g/dL Normal 12.0-16.0 [facility] Comment on above: Performed By: #### A CBC, CMPF, BHCG2 #### Testing performed at [address] [address] MCH (RBC) [Entitic mass] 29.1 pg Normal 26.0-35.0 [facility] Comment on above: Performed By: #### A CBC, CMPF, BHCG2 #### Testing performed at [address] [address] MCHC (RBC) [Mass/Vol] 35.5 g/dL Normal 27.0-37.0 [facility] Comment on above: Performed By: #### A CBC, CMPF, BHCG2 #### Testing performed at [address] [address] MCV (RBC) [Entitic vol] 82.2 fL Normal 80.0-100.0 [facility] Comment on above: Performed By: #### A CBC, CMPF, BHCG2 #### Testing performed at [address] [address] Platelet mean volume (Bld) [Entitic vol] 8.0 fL Normal 7.4-11.0 [facility] Comment on above: Performed By: #### A CBC, CMPF, BHCG2 #### Testing performed at [address] [address] Platelets (Bld) [#/Vol] 272 /cmm Normal 130.0-400.0 [facility] Comment on above: Performed By: #### A CBC, CMPF, BHCG2 #### Testing performed at [address] [address] RBC (Bld) [#/Vol] 5.38 /cmm Normal 4.0-5.4 [facility] Comment on above: Performed By: #### A CBC, CMPF, BHCG2 #### Testing performed at [address] [address] WBC (Bld) [#/Vol] 8.9 /cmm Normal 3.6-11.0 [facility] Comment on above: Performed By: #### A CBC, CMPF, BHCG2 #### Testing performed at [address] [address] CMP FASTINGon 09-13-2018 A:G RATIO 1.3 RATIO Normal 1.3-2.2 [facility] Comment on above: Performed By: #### A CBC, CMPF, BHCG2 #### Testing performed at [address] [address] Albumin [Mass/Vol] 4.4 G/dl Normal 3.5-5.0 [facility] Comment on above: Performed By: #### A CBC, CMPF, BHCG2 #### Testing performed at [address] [address] ALP [Catalytic activity/Vol] 77 U/L Normal 38-126 [facility] Comment on above: Performed By: #### A CBC, CMPF, BHCG2 #### Testing performed at [address] [address] ALT [Catalytic activity/Vol] 29 U/L Normal 14-54 [facility] Comment on above: Performed By: #### A CBC, CMPF, BHCG2 #### Testing performed at [address] [address] AST [Catalytic activity/Vol] 19 U/L Normal 15-41 [facility] Comment on above: Performed By: #### A CBC, CMPF, BHCG2 #### Testing performed at [address] [address] Bilirubin [Mass/Vol] 0.7 mg/dL Normal 0.2-1.2 [facility] Comment on above: Performed By: #### A CBC, CMPF, BHCG2 #### Testing performed at [address] [address] Creatinine [Mass/Vol] 0.6 mg/dL Normal 0.52-1.04 [facility] Comment on above: Performed By: #### A CBC, CMPF, BHCG2 #### Testing performed at [address] [address] EST. GFR, >60 Normal [facility] Comment on above: Performed By: #### A CBC, CMPF, BHCG2 #### Testing performed at [address] [address] EST. GFR,Non >60 Normal [facility] Comment on above: Performed By: #### A CBC, CMPF, BHCG2 #### Testing performed at [address] [address] GFR/1.73 sq M predicted among non-blacks MDRD (S/P/Bld) [Vol rate/Area] Average GFR for 20-29 years old = 116. Normal [facility] Comment on above: Result Comment: Supervisor Compressed Yeast andres Kidney disease, GFR = <60. Kidney failure, GFR = <15. The GFR estimate is not adjusted for extreme body surface area or acute process, nor has it been validated for women or ethnic groups other than and . Performed By: #### A CBC, CMPF, BHCG2 #### Testing performed at [address] [address] Protein [Mass/Vol] 7.8 g/dL Normal 6.3-8.2 [facility] Comment on above: Performed By: #### A CBC, CMPF, BHCG2 #### Testing performed at [address] [address] Urea nitrogen [Mass/Vol] 17 mg/dL Normal 7-20 [facility] Comment on above: Performed By: #### A CBC, CMPF, BHCG2 #### Testing performed at [address] [address] Calcium [Mass/Vol] 9.2 mg/dL Normal 8.4-10.2 [facility] Comment on above: Performed By: #### A CBC, CMPF, BHCG2 #### Testing performed at [address] [address] Chloride [Moles/Vol] 102 mmol/L Normal 98-107 [facility] Comment on above: Performed By: #### A CBC, CMPF, BHCG2 #### Testing performed at [address] [address] CO2 [Moles/Vol] 23 mmol/L Normal 22-30 [facility] Comment on above: Performed By: #### A CBC, CMPF, BHCG2 #### Testing performed at [address] [address] Glucose [Mass/Vol] 301 mg/dL High 70-100 [facility] Comment on above: Result Comment: NORMAL <100 mg/dL PREDIABETES 101-126 mg/dL DIABETES 126 mg/dL or higher Performed By: #### A CBC, CMPF, BHCG2 #### Testing performed at [address] [address] Potassium [Moles/Vol] 3.7 mmol/L Normal 3.5-5.1 [facility] Comment on above: Performed By: #### A CBC, CMPF, BHCG2 #### Testing performed at [address] [address] Sodium [Moles/Vol] 135 mmol/L Low 136-145 [facility] Comment on above: Performed By: #### A CBC, CMPF, BHCG2 #### Testing performed at [address] [address] BETA HCG, QUANT, BLOODon HCG.beta subunit Qn 0.00 m[IU]/mL MIU/ML [facility] [employer] Comment on above: [facility] [place]ANGES: NON FEMALE 0-6 MIU/ML MALE [...] PLATELETon 2018 ABSOLUTE BASOPHIL COUNT 0.1 X10 [facility] Basophils/100 WBC (Bld) 0.6 % 0 - 2 % [facility] Differential cell count method Nom (Bld) AUTO DIFF % [facility] Eosinophils #/vol (Bld) 0.30 10*3/uL X10 [facility] Eosinophils/100 WBC (Bld) 3.9 % 0 - 11 % [facility] Erythrocyte distribution width Ratio (RBC) 12.9 % 11.5 - 14.5 % [facility] Hematocrit Volume Fraction (Bld) 44.2 % 36 - 48 % [facility] Hemoglobin mass conc (Bld) 15.7 g/dL [facility] Lymphocytes #/vol (Bld) 3.30 10*3/uL X10 [facility] Lymphocytes/100 WBC (Bld) 36.9 % 20 - 55 % [facility] MCH Entitic mass (RBC) 29.1 pg 26 - 35 PG [facility] MCHC mass conc (RBC) 35.5 g/dL [facility] MCV Entitic volume (RBC) 82.2 fL [facility] Monocytes #/vol (Bld) 0.5 10*3/uL X10 [facility] Monocytes/100 WBC (Bld) 5.5 % 0 - 10 % [facility] Neutrophils #/vol (Bld) 4.7 10*3/uL [facility] [facility] Neutrophils/100 WBC (Bld) 53.1 % 37 - 75 % [facility] Platelet mean volume Entitic volume (Bld) 8.0 fL [facility] Platelets #/vol (Bld) 272 10*3/uL [facility] RBC #/vol (Bld) 5.38 10*6/uL [facility] W[facility] #/vol (Bld) 8.9 10*3/uL [facility] COMPREHENSIVE METABOLIC PANE Saleem 09-12-2018 Albumin mass conc 4.4 G/dl 3.5 - 5 G/dl [facility] Albumin/Globulin mass ratio 1.3 {ratio} [facility] ALP enzyme act/vol 77 U/L [facility] ALT enzyme act/vol 29 U/L [facility] AST enzyme act/vol 19 U/L [facility] Bilirubin mass conc 0.7 mg/dL [facility] Calcium mass conc 9.2 mg/dL [facility] Chloride molar conc 102 mmol/L [facility] CO2 molar conc 23 mmol/L [facility] Creatinine mass conc 0.6 mg/dL [facility] GFR/1.73 sq M predicted among blacks MDRD vol rate/area (S/P/Bld) mL/min/{1.73_m2} ml/min/1.73s q.m [facility] GFR/1.73 sq M predicted among non-blacks MDRD vol rate/area (S/P/Bld) mL/min/{1.73_m2} ml/min/1.73s q.m [facility] GFR/1.73 sq M predicted among non-blacks MDRD vol rate/area (S/P/Bld) Average GFR for 20-29 years old = 116. [facility] Comment on above: Chronic Kidney disea se, GFR = <60. Kidney failure, GFR = <15. The GFR estimate is not adjusted for extreme body surface area or acute process, nor has it been validated for women or ethnic groups other than and . Glucose fasting mass conc 301 mg/dL High [facility] Comment on above: NORMAL <100 mg/dL PREDIABETES 101-126 mg/dL DIABETES 126 mg/dL or higher Interpretation and review of laboratory results Abnormal [facility] Potassium molar conc 3.7 mmol/L [facility] Protein mass conc 7.8 g/dL [facility] Sodium molar conc 135 mmol/L Low [facility] Urea nitrogen mass conc 17 mg/dL [facility] HCG QUALITATIVE, URINEon HCG ( test) Ql (U) Negative NEGATIVE [facility] POCT GLUCOSEon 09-12-2018 Glucose mass conc 247 mg/dL Abnormal 70 - 99 mg/dL [facility] Interpretation and review of laboratory results Abnormal [facility] URINALYSIS, MACROon 09-13-19 19 Bilirubin Ql (U) Negative NEGATIVE [facility] Clarity Nom (U) CLEAR [facility]AR [facility] Color Nom (U) YELLOW YELLOW [facility] H Glucose Test strip mass conc (U) 500 mg/dl Abnormal NEGATIVE [facility] Hemoglobin Ql (U) Negative NEGATIVE [facility] Interpretation and review of laboratory results Abnormal [facility] Ketones mass conc (U) 15 mg/dl Abnormal NEGATIVE [facility] Leukocyte esterase Test strip Ql (U) Negative NEGATIVE [facility] Nitrite Ql (U) Negative NEGATIVE [facility] pH (U) 5.5 [pH] [facility] Protein Ql (U) Negative NEGATIVE mg/dl [facility] Specific gravity Relative Density (U) 1.020 [facility] H Urobilinogen mass conc (U) 0.2 mg/dl 0.2 - 1 mg/dl [facility] URINE HCG QUALon 09-12-2018 Beta HCG ( test) Ql (U) Negative Normal NEGATIVE [facility] Comment on above: Performed By: #### U HCGT, UMAC, UMIC #### Testing performed at [address] [address] URINE MACROSCOPICon 09-13-19 19 Bilirubin Ql (U) Negative Normal NEGATIVE [facility] Comment on above: Performed By: #### U HCGT, UMAC, UMIC #### Testing performed at [address] [address] Clarity (U) CLEAR Normal CLEAR [facility] Comment on above: Performed By: #### U HCGT, UMAC, UMIC #### Testing performed at [address] [address] Color (U) YELLOW Normal YELLOW [facility] Comment on above: Performed By: #### U HCGT, UMAC, UMIC #### Testing performed at [address] [address] Glucose Ql (U) 500 mg/dl Abnormal NEGATIVE [facility] Comment on above: Performed By: #### U HCGT, UMAC, UMIC #### Testing performed at [address] [address] pH (U) 5.5 [pH] Normal 5.0-7.0 [facility] Comment on above: Performed By: #### U HCGT, UMAC, UMIC #### Testing performed at [address] [address] Protein (U) [Mass/Vol] Negative Normal NEGATIVE [facility] Comment on above: Performed By: #### U HCGT, UMAC, UMIC #### Testing performed at [address] [address] URINE HEMOGLOBIN Negative Normal NEGATIVE [facility] Comment on above: Performed By: #### U HCGT, UMAC, UMIC #### Testing performed at [address] [place] [address] URINE KETONE 15 mg/dl Abnormal NEGATIVE [facility] Comment on above: Performed By: #### U HCGT, UMAC, UMIC #### Testing performed at [address] [address] URINE LEUKOTEST Negative Normal NEGATIVE [facility] Comment on above: Performed By: #### U HCGT, UMAC, UMIC #### Testing performed at [address] [address] URINE NITRATES Negative Normal NEGATIVE [facility] Comment on above: Performed By: #### U HCGT, UMAC, UMIC #### Testing performed at [address] [address] URINE SPEC GRAVITY 1.020 Normal 1.010-1.025 [facility] Comment on above: Performed By: #### U HCGT, UMAC, UMIC #### Testing performed at [address] [place] [address] Urobilinogen Qn (U) 0.2 mg/dl Normal 0.2-1.0 [facility] Comment on above: Performed By: #### U HCGT, UMAC, UMIC #### Testing performed at [address] [address] URINE MICROSCOPICon 09-13-19 19 Bacteria LM.HPF (Urine sed) [#/Area] Negative Normal NEGATIVE [facility] Comment on above: Performed By: #### U HCGT, UMAC, UMIC #### Testing performed at [address] [address] Casts LM.LPF (Urine sed) [#/Area] NONE Normal NONE [facility] Comment on above: Performed By: #### U HCGT, UMAC, UMIC #### Testing performed at [address] [place] [address] CRYSTAL NONE Normal [facility] Comment on above: Performed By: #### U HCGT, UMAC, UMIC #### Testing performed at [address] [address] Epithelial cells LM.HPF (Urine sed) [#/Area] 5 TO 10 Normal [facility] Comment on above: Performed By: #### U HCGT, UMAC, UMIC #### Testing performed at [address] [address] Mucus Ql (Urine sed) Negative Normal NEGATIVE [facility] Comment on above: Performed By: #### U HCGT, UMAC, UMIC #### Testing performed at [address] [address] RBC (U) [#/Vol] Negative Normal NEGATIVE [facility] Comment on above: Performed By: #### U HCGT, UMAC, UMIC #### Testing performed at [address] [address] URINE COMMENT CULTURE CRITERIA NOT MET, NO CULTURE PERFORMED. Normal [facility] Comment on above: Performed By: #### U HCGT, UMAC, UMIC #### Testing performed at [address] [address] WBC (U) [#/Vol] Negative Normal NEGATIVE [facility] Comment on above: Performed By: #### U HCGT, UMAC, UMIC #### Testing performed at [address] [address] Bacteria LM.HPF #/area (Urine sed) Negative NEGATIVE [facility] Casts LM.LPF #/area (Urine sed) NONE NONE /LPF [facility] Crystals LM Nom (Urine sed) NONE NONE [facility] Epithelial cells LM Ql (Urine sed) 5 TO 10 /HPF [facility] Mucus Ql (Urine sed) Negative NEGATIVE [facility] RBC LM.HPF #/area (Urine sed) Negative NEGATIVE /HPF [facility] Urine sediment comments LM Jorge (Urine sed) CULTURE CRITERIA NOT MET, NO CULTURE PERFORMED. [facility] WBC LM.HPF #/area (Urine sed) Negative NEGATIVE /HPF [facility] Beta Hydroxybutyrateon 07-16 Beta Hydroxybutyrate 0.2 mmol/L Normal 0.00-0.30 [facility] Comment on above: Performed By: #### C BCDIF, HCGQT, LIPASE, CMET, BHBA #### Unless otherwise noted, all testing performed by [place] [address] CLIA: [id number] Supervisor Marble: Cristofer Perry M.D. CBC with Diffon 07-16-2018 Basophils #/vol (Bld) 0.1 K/mcL Normal 0-0.2 [facility] Comment on above: Performed By: #### C BCDIF, HCGQT, LIPASE, CMET, BHBA #### Unless otherwise noted, all testing performed by [place] [address] CLIA: [id number] Supervisor Marble: Cristofer Perry M.D. Basophils/100 WBC (Bld) 1.0 % Normal [facility] Comment on above: Performed By: #### C BCDIF, HCGQT, LIPASE, CMET, BHBA #### Unless otherwise noted, all testing performed by [place] [address] CLIA: [id number] Supervisor Marble: Cristofer Perry M.D. Eosinophils #/vol (Bld) 0.1 K/mcL Normal 0-0.5 [facility] Comment on above: Performed By: #### C BCDIF, HCGQT, LIPASE, CMET, BHBA #### Unless otherwise noted, all testing performed by [place] [address] CLIA: [id number] Supervisor Marble: Cristofer Perry M.D. Eosinophils/100 WBC (Bld) 1.1 % Normal [facility] Comment on above: Performed By: #### C BCDIF, HCGQT, LIPASE, CMET, BHBA #### Unless otherwise noted, all testing performed by [place] [address] CLIA: [id number] Supervisor Marble: Cristofer Perry M.D. Erythrocyte distribution width Ratio (RBC) 13.6 % Normal 10.0-14.4 [facility] Comment on above: Performed By: #### C BCDIF, HCGQT, LIPASE, CMET, BHBA #### Unless otherwise noted, all testing performed by [place] [address] CLIA: [id number] Supervisor Marble: Cristofer Perry M.D. Hematocrit Volume Fraction (Bld) 47.6 % High 34.4-44.8 [facility] Comment on above: Performed By: #### C BCDIF, HCGQT, LIPASE, CMET, BHBA #### Unless otherwise noted, all testing performed by [place] [address] CLIA: [id number] Supervisor Marble: Cristofer Perry M.D. Hemoglobin mass conc (Bld) 16.3 g/dL High 11.6-15.4 [facility] Comment on above: Performed By: #### C BCDIF, HCGQT, LIPASE, CMET, BHBA #### Unless otherwise noted, all testing performed by [place] [address] CLIA: [id number] Supervisor Marble: Cristofer Perry M.D. Lymphocytes #/vol (Bld) 2.3 K/mcL Normal 1.0-3.7 [facility] Comment on above: Performed By: #### C BCDIF, HCGQT, LIPASE, CMET, BHBA #### Unless otherwise noted, all testing performed by [place] [address] CLIA: [id number] Supervisor Marble: Cristofer Perry M.D. Lymphocytes/100 WBC (Bld) 29.8 % Normal [facility] Comment on above: Performed By: #### C BCDIF, HCGQT, LIPASE, CMET, BHBA #### Unless otherwise noted, all testing performed by [place] [address] CLIA: [id number] Supervisor Marble: Cristofer Perry M.D. MCH Entitic mass (RBC) 27.5 pg Low 27.9-33.9 [facility] Comment on above: Performed By: #### C BCDIF, HCGQT, LIPASE, CMET, BHBA #### Unless otherwise noted, all testing performed by [place] [phone] CLIA: [id number] Supervisor Marble: Cristofer Perry M.D. MCHC mass conc (RBC) 34.1 g/dL Normal 33.1-35.1 [facility] Comment on above: Performed By: #### C BCDIF, HCGQT, LIPASE, CMET, BHBA #### Unless otherwise noted, all testing performed by [place] [phone] CLIA: [id number] Supervisor Marble: Cristofer Perry M.D. MCV Entitic volume (RBC) 80.7 fL Low 82.6-98.9 [facility] Comment on above: Performed By: #### C BCDIF, HCGQT, LIPASE, CMET, BHBA #### Unless otherwise noted, all testing performed by [place] [phone] CLIA: [id number] Supervisor Marble: Cristofer Perry M.D. Monocytes #/vol (Bld) 0.5 K/mcL Normal 0.1-0.6 [facility] Comment on above: Performed By: #### C BCDIF, HCGQT, LIPASE, CMET, BHBA #### Unless otherwise noted, all testing performed by [place] [address] CLIA: [id number] Supervisor Marble: Cristofer Perry M.D. Monocytes/100 WBC (Bld) 6.3 % Normal [facility] Comment on above: Performed By: #### C BCDIF, HCGQT, LIPASE, CMET, BHBA #### Unless otherwise noted, all testing performed by [place] [phone] CLIA: [id number] Supervisor Marble: Cristofer Perry M.D. Neutrophils #/vol (Bld) 4.7 K/mcL Normal 1.2-6.9 [facility] Comment on above: Performed By: #### C BCDIF, HCGQT, LIPASE, CMET, BHBA #### Unless otherwise noted, all testing performed by [place] [address] CLIA: [id number] Supervisor Marble: Cristofer Perry M.D. Platelet mean volume Entitic volume (Bld) 8.3 fL Normal 7.0-10.6 [facility] Comment on above: Performed By: #### C BCDIF, HCGQT, LIPASE, CMET, BHBA #### Unless otherwise noted, all testing performed by [place] [address] CLIA: [id number] Supervisor Marble: Cristofer Perry M.D. Platelets #/vol (Bld) 243 K/mcL Normal 162-402 [facility] Comment on above: Performed By: #### C BCDIF, HCGQT, LIPASE, CMET, BHBA #### Unless otherwise noted, all testing performed by [place] [address] CLIA: [id number] Supervisor Marble: Cristofer Perry M.D. RBC #/vol (Bld) 5.90 M/mcL High 3.7-5.0 [facility] Comment on above: Performed By: #### C BCDIF, HCGQT, LIPASE, CMET, BHBA #### Unless otherwise noted, all testing performed by [place] [address] CLIA: [id number] Supervisor Marble: Cristofer Perry M.D. Segmented Neut % 61.8 % Normal [facility] Comment on above: Performed By: #### C BCDIF, HCGQT, LIPASE, CMET, BHBA #### Unless otherwise noted, all testing performed by [place] [address] CLIA: [id number] Supervisor Marble: Cristofer Perry M.D. WBC #/vol (Bld) 7.6 K/mcL Normal 3.4-10.6 [facility] Comment on above: Performed By: #### C BCDIF, HCGQT, LIPASE, CMET, BHBA #### Unless otherwise noted, all testing performed by [place] [address] CLIA: [id number] Supervisor Marble: Cristofer Perry M.D. CT ABDO,PELVIS IV CONTRAST O Jluis 07-16-2018 CT ABDO,PELVIS IV CONTRAST ONLY Final Report Accession No: [id number] Performed: Jul 16 2018 4:33PM Examination: [...] WAYNE M.D. Trans: dcarr : cc: Normal [facility] Comprehensive Metabolic Pane saleem 07-16-2018 Albumin mass conc 4.2 g/dL Normal 3.2-5.2 [facility] Comment on above: Performed By: #### C BCDIF, HCGQT, LIPASE, CMET, BHBA #### Unless otherwise noted, all testing performed by [place] [address] CLIA: [id number] Supervisor Marble: Cristofer Perry M.D. ALP enzyme act/vol 113 U/L Normal 40-140 [facility] Comment on above: Performed By: #### C BCDIF, HCGQT, LIPASE, CMET, BHBA #### Unless otherwise noted, all testing performed by [place] [address] CLIA: [id number] Supervisor Marble: Cristofer Perry M.D. ALT enzyme act/vol 39 U/L Normal 14-65 [facility] Comment on above: Result Comment: This test result might be falsely depressed or falsely elevated on samples drawn from patients taking Sulfasalazine and Sulfapyridine. Venipuncture should occur prior to taking either of these drugs. Performed By: #### C BCDIF, HCGQT, LIPASE, CMET, BHBA #### Unless otherwise noted, all testing performed by [place] [address] CLIA: [id number] Supervisor Marble: Cristofer Perry M.D. AST enzyme act/vol 12 U/L Normal 0-45 [facility] Comment on above: Result Comment: This test result might be falsely depressed or falsely elevated on samples drawn from patients taking Sulfasalazine and Sulfapyridine. Venipuncture should occur prior to taking either of these drugs. Performed By: #### C BCDIF, HCGQT, LIPASE, CMET, BHBA #### Unless otherwise noted, all testing performed by [place] [address] CLIA: [id number] Supervisor Marble: Cristofer Perry M.D. Bilirubin mass conc 0.7 mg/dL Normal 0.3-1.2 [facility] Comment on above: Performed By: #### C BCDIF, HCGQT, LIPASE, CMET, BHBA #### Unless otherwise noted, all testing performed by [place] [address] CLIA: [id number] Supervisor [place]ble: Cristofer Perry M.D. Calcium mass conc 9.7 mg/dL Normal 8.4-10.2 [facility] Comment on above: Performed By: #### C BCDIF, HCGQT, LIPASE, CMET, BHBA #### Unless otherwise noted, all testing performed by [place] [address] CLIA: [id number] Supervisor Marble: Cristofer Perry M.D. Chloride molar conc 103 mmol/L Normal 98-108 [facility] Comment on above: Performed By: #### C BCDIF, HCGQT, LIPASE, CMET, BHBA #### Unless otherwise noted, all testing performed by [place] [address] CLIA: [id number] Supervisor Marble: Cristofer Perry M.D. CO2 molar conc 25 mmol/L Normal 21-32 [facility] Comment on above: Performed By: #### C BCDIF, HCGQT, LIPASE, CMET, BHBA #### Unless otherwise noted, all testing performed by [place] [address] CLIA: [id number] Supervisor Marble: Cristofer Perry M.D. Creatinine mass conc 0.90 mg/dL Normal 0.40-1.10 [facility] Comment on above: Performed By: #### C BCDIF, HCGQT, LIPASE, CMET, BHBA #### Unless otherwise noted, all testing performed by [place] [address] CLIA: [id number] Supervisor Marble: Cristofer Perry M.D. GFR/1.73 sq M predicted among blacks MDRD vol rate/area (S/P/Bld) mL/min/{1.73_m2} Normal [facility] Comment on above: Result Comment: Afri can Portuguese GFR Calc Performed By: #### C BCDIF, HCGQT, LIPASE, CMET, BHBA #### Unless otherwise noted, all testing performed by [place] [address] CLIA: [id number] Supervisor Marble: Cristofer Perry M.D. GFR/1.73 sq M predicted among non-blacks MDRD vol rate/area (S/P/Bld) mL/min/{1.73_m2} Normal [facility] Comment on above: Result Comment: Non- GFR [...] Unless otherwise noted, all testing performed by [place] [address] CLIA: [id number] Supervisor Marble: Cristofer Perry M.D. Glucose mass conc 367 mg/dL High 70-99 [facility] Comment on above: Result Comment: This test result might be falsely depressed or falsely elevated on samples drawn from patients taking Sulfasalazine and Sulfapyridine. Venipuncture should occur prior to taking either of these drugs. Performed By: #### C BCDIF, HCGQT, LIPASE, CMET, BHBA #### Unless otherwise noted, all testing performed by [place] [address] CLIA: [id number] Supervisor Marble: Cristofer Perry M.D. Potassium molar conc 3.6 mmol/L Normal 3.5-5.1 [facility] Comment on above: Performed By: #### C BCDIF, HCGQT, LIPASE, CMET, BHBA #### Unless otherwise noted, all testing performed by [place] [address] CLIA: [id number] Supervisor Marble: Cristofer Perry M.D. Protein mass conc 8.4 g/dL High 6.0-8.0 [facility] Comment on above: Performed By: #### C BCDIF, HCGQT, LIPASE, CMET, BHBA #### Unless otherwise noted, all testing performed by [place] [address] CLIA: [id number] Supervisor Marble: Cristofer Perry M.D. Sodium molar conc 140 mmol/L Normal 135-145 [facility] Comment on above: Performed By: #### C BCDIF, HCGQT, LIPASE, CMET, BHBA #### Unless otherwise noted, all testing performed by [place] [address] CLIA: [id number] Supervisor Marble: Cristofer Perry M.D. Urea nitrogen mass conc 7 mg/dL Low 8-25 [facility] Comment on above: Performed By: #### C BCDIF, HCGQT, LIPASE, CMET, BHBA #### Unless otherwise noted, all testing performed by [place] [address] CLIA: [id number] Supervisor Marble: Cristofer Perry M.D. Lipaseon 07-16-2018 Lipase enzyme act/vol 83 U/L Normal 73-393 [facility] Comment on above: Performed By: #### C BCDIF, HCGQT, LIPASE, CMET, BHBA #### Unless otherwise noted, all testing performed by [place] [address] CLIA: [id number] Supervisor Marble: Cristofer Perry M.D. Test,Urine Qualon 07-16-2018 HCG.beta subunit ( test) Ql (U) Negative Normal Negative [facility] Comment on above: Result Comment: Rapi d [...] Unless otherwise noted, all testing performed by [place] [address] CLIA: [id number] Supervisor Marble: Cristofer Perry M.D. Urinalysis, Routineon 2018 Bilirubin,Urine Negative Normal NEG;NEGATIVE [facility] Comment on above: Performed By: #### C BCDIF, HCGQT, LIPASE, CMET, BHBA #### Unless otherwise noted, all testing performed by [place] [address] CLIA: [id number] Supervisor Marble: Cristofer Perry M.D. Blood,Urine Negative Normal NEG;NEGATIVE [facility] Comment on above: Performed By: #### C BCDIF, HCGQT, LIPASE, CMET, BHBA #### Unless otherwise noted, all testing performed by [place] [address] CLIA: [id number] Supervisor Marble: Cristofer Perry M.D. Character Nom (U) Hazy Normal [facility] Comment on above: Performed By: #### C BCDIF, HCGQT, LIPASE, CMET, BHBA #### Unless otherwise noted, all testing performed by [place] [address] CLIA: [id number] Supervisor Marble: Cristofer Perry M.D. Color Nom (U) Yellow Normal [facility] Comment on above: Performed By: #### C BCDIF, HCGQT, LIPASE, CMET, BHBA #### Unless otherwise noted, all testing performed by [place] [address] CLIA: [id number] Supervisor Marble: Cristofer Perry M.D. Glucose Ql (U) >= 500 High < 70 [facility] Comment on above: Performed By: #### C BCDIF, HCGQT, LIPASE, CMET, BHBA #### Unless otherwise noted, all testing performed by [place] [address] CLIA: [id number] Supervisor Marble: Cristofer Perry M.D. Ketone,Urine Trace Abnormal NEG;NEGATIVE [facility] Comment on above: Performed By: #### C BCDIF, HCGQT, LIPASE, CMET, BHBA #### Unless otherwise noted, all testing performed by [place] [phone] CLIA: [id number] Supervisor [place]ble: Cristofer Perry M.D. Leuk.Esterase,Urine Trace Abnormal Negative [facility] Comment on above: Performed By: #### C BCDIF, HCGQT, LIPASE, CMET, BHBA #### Unless otherwise noted, all testing performed by [place] [address] CLIA: [id number] Supervisor Marble: Cristofer Perry M.D. Nitrite,Urine Negative Normal NEG;NEGATIVE [facility] Comment on above: Performed By: #### C BCDIF, HCGQT, LIPASE, CMET, BHBA #### Unless otherwise noted, all testing performed by [address], [place] [address] CLIA: [id number] Supervisor [place]ble: Cristofer Perry M.D. pH (U) 6.0 [pH] Normal 4.5-8.0 [facility] [facility] Comment on above: Performed By: #### C BCDIF, HCGQT, LIPASE, CMET, BHBA #### Unless otherwise noted, all testing performed by [place] [address] CLIA: [id number] Supervisor Marble: Cristofer Perry M.D. Protein mass conc (U) Negative Normal NEG;NEGATIVE O [facility] Comment on above: Performed By: #### C BCDIF, HCGQT, LIPASE, CMET, BHBA #### Unless otherwise noted, all testing performed by [place] [address] CLIA: [id number] Supervisor Marble: Cristofer Perry M.D. RBC LM.HPF #/area (Urine sed) /[HPF] Normal 0-5 [facility] Comment on above: Performed By: #### C BCDIF, HCGQT, LIPASE, CMET, BHBA #### Unless otherwise noted, all testing performed by [place] [address] CLIA: [id number] Supervisor Marble: Cristofer Perry M.D. Specific [place],Urine 1.036 High 1.003-1.029 [facility] Comment on above: Performed By: #### C BCDIF, HCGQT, LIPASE, CMET, BHBA #### Unless otherwise noted, all testing performed by [place] [address] CLIA: [id number] Supervisor Marble: Cristofer Perry M.D. Squamous Epithelial 4 /HPF Normal 0-40 [facility] Comment on above: Performed By: #### C BCDIF, HCGQT, LIPASE, CMET, BHBA #### Unless otherwise noted, all testing performed by [place] [address] CLIA: [id number] Supervisor Marble: Cristofer Perry M.D. Urobilinogen,Urine < 2.0 Normal <2 [facility] Comment on above: Result Comment: Urob ilinogen, Urine Reference Range: <2.0 mg/dL Performed By: #### C BCDIF, HCGQT, LIPASE, CMET, BHBA #### Unless otherwise noted, all testing performed by [place] [address] CLIA: [id number] Supervisor Marble: Cristofer Perry M.D. WBC,Urine 3 /HPF Normal 0-5 [facility] Comment on above: Performed By: #### C BCDIF, HCGQT, LIPASE, CMET, BHBA #### Unless otherwise noted, all testing performed by [place] [address] CLIA: [id number] Supervisor Marble: Cristofer Perry M.D. Glucose, POCon 02-02-2018 Glucose mass conc 183 mg/dL High 70-105 [facility] Comment on above: Performed By: #### G LUX #### Unless otherwise noted, all testing performed by [place] [address] CLIA: [id number] Supervisor [place]: Cristofer Perry M.D. Beta Hydroxybutyrateon 02-01 Beta Hydroxybutyrate 0.1 mmol/L Normal 0.00-0.30 [facility] Comment on above: Performed By: #### C BCDIF, HCGQT, LIPASE, CMET, BHBA #### Unless otherwise noted, all testing performed by [place] [address] CLIA: [id number] Supervisor Marble: Cristofer Perry M.D. CBC with Diffon 02-01-2018 Basophils #/vol (Bld) 0.0 K/mcL Normal 0-0.2 [facility] Comment on above: Performed By: #### C BCDIF, HCGQT, LIPASE, CMET, BHBA #### Unless otherwise noted, all testing performed by [place] [address] CLIA: [id number] Supervisor [place]: Cristofer Perry M.D. Basophils/100 WBC (Bld) 0.6 % Normal [facility] Comment on above: Performed By: #### C BCDIF, HCGQT, LIPASE, CMET, BHBA #### Unless otherwise noted, all testing performed by [place] [address] CLIA: [id number] Supervisor [place]ble: Cristofer Perry M.D. Eosinophils #/vol (Bld) 0.1 K/mcL Normal 0-0.5 [facility] Comment on above: Performed By: #### C BCDIF, HCGQT, LIPASE, CMET, BHBA #### Unless otherwise noted, all testing performed by [place] [address] CLIA: [id number] Supervisor [place]: Cristofer Perry M.D. Eosinophils/100 WBC (Bld) 1.9 % Normal [facility] Comment on above: Performed By: #### C BCDIF, HCGQT, LIPASE, CMET, BHBA #### Unless otherwise noted, all testing performed by [place] [address] CLIA: [id number] Supervisor [place]: Cristofer Perry M.D. Erythrocyte distribution width Ratio (RBC) 14.3 % Normal 10.0-14.4 [facility] Comment on above: Performed By: #### C BCDIF, HCGQT, LIPASE, CMET, BHBA #### Unless otherwise noted, all testing performed by [place] [address] CLIA: [id number] Supervisor [place]ble: Cristofer Perry M.D. Hematocrit Volume Fraction (Bld) 43.7 % Normal 34.4-44.8 [facility] Comment on above: Performed By: #### C BCDIF, HCGQT, LIPASE, CMET, BHBA #### Unless otherwise noted, all testing performed by [place] [address] CLIA: [id number] Supervisor [place]: Cristofer Perry M.D. Hemoglobin mass conc (Bld) 15.0 g/dL Normal 11.6-15.4 [facility] Comment on above: Performed By: #### C BCDIF, HCGQT, LIPASE, CMET, BHBA #### Unless otherwise noted, all testing performed by [place] [address] CLIA: [id number] Supervisor [place]: Cristofer Perry M.D. Lymphocytes #/vol (Bld) 2.7 K/mcL Normal 1.0-3.7 [facility] Comment on above: Performed By: #### C BCDIF, HCGQT, LIPASE, CMET, BHBA #### Unless otherwise noted, all testing performed by [place] [address] CLIA: [id number] Supervisor [place]: Cristofer Perry M.D. Lymphocytes/100 WBC (Bld) 35.0 % Normal [facility] Comment on above: Performed By: #### C BCDIF, HCGQT, LIPASE, CMET, BHBA #### Unless otherwise noted, all testing performed by [place] [address] CLIA: [id number] Supervisor [place]: Cristofer Perry M.D. MCH Entitic mass (RBC) 27.5 pg Low 27.9-33.9 [facility] Comment on above: Performed By: #### C BCDIF, HCGQT, LIPASE, CMET, BHBA #### Unless otherwise noted, all testing performed by [place] [address] CLIA: [id number] Supervisor [place]: Cristofer Perry M.D. MCHC mass conc (RBC) 34.3 g/dL Normal 33.1-35.1 [facility] Comment on above: Performed By: #### C BCDIF, HCGQT, LIPASE, CMET, BHBA #### Unless otherwise noted, all testing performed by [place] [address] CLIA: [id number] Supervisor [place]: Cristofer Perry M.D. MCV Entitic volume (RBC) 80.3 fL Low 82.6-98.9 [facility] Comment on above: Performed By: #### C BCDIF, HCGQT, LIPASE, CMET, BHBA #### Unless otherwise noted, all testing performed by [place] [address] CLIA: [id number] Supervisor [place]: Cristofer Perry M.D. Monocytes #/vol (Bld) 0.4 K/mcL Normal 0.1-0.6 [facility] Comment on above: Performed By: #### C BCDIF, HCGQT, LIPASE, CMET, BHBA #### Unless otherwise noted, all testing performed by [place] [address] CLIA: [id number] Supervisor [place]: Cristofer Perry M.D. Monocytes/100 WBC (Bld) 4.8 % Normal [facility] Comment on above: Performed By: #### C BCDIF, HCGQT, LIPASE, CMET, BHBA #### Unless otherwise noted, all testing performed by [place] [phone] CLIA: [id number] Supervisor [place]: Cristofer Perry M.D. Neutrophils #/vol (Bld) 4.5 K/mcL Normal 1.2-6.9 [facility] Comment on above: Performed By: #### C BCDIF, HCGQT, LIPASE, CMET, BHBA #### Unless otherwise noted, all testing performed by [place] [address] CLIA: [id number] Supervisor [place]: Cristofer Perry M.D. Platelet mean volume Entitic volume (Bld) 7.9 fL Normal 7.0-10.6 [facility] Comment on above: Performed By: #### C BCDIF, HCGQT, LIPASE, CMET, BHBA #### Unless otherwise noted, all testing performed by [place] [address] CLIA: [id number] Supervisor [place]: Cristofer Perry M.D. Platelets #/vol (Bld) 274 K/mcL Normal 162-402 [facility] Comment on above: Performed By: #### C BCDIF, HCGQT, LIPASE, CMET, BHBA #### Unless otherwise noted, all testing performed by [place] [address] CLIA: [id number] Supervisor [place]: Cristofer Perry M.D. RBC #/vol (Bld) 5.44 M/mcL High 3.7-5.0 [facility] Comment on above: Performed By: #### C BCDIF, HCGQT, LIPASE, CMET, BHBA #### Unless otherwise noted, all testing performed by [place] [address] CLIA: [id number] Supervisor [place]: Cristofer Perry M.D. Segmented Neut % 57.7 % Normal [facility] Comment on above: Performed By: #### C BCDIF, HCGQT, LIPASE, CMET, BHBA #### Unless otherwise noted, all testing performed by [place] [address] CLIA: [id number] Supervisor [place]: Cristofer Perry M.D. WBC #/vol (Bld) 7.8 K/mcL Normal 3.4-10.6 [facility] Comment on above: Performed By: #### C BCDIF, HCGQT, LIPASE, CMET, BHBA #### Unless otherwise noted, all testing performed by [place] [address] CLIA: [id number] Supervisor [place]: Cristofer Perry M.D. Comprehensive Metabolic Pane [facility] 02-01-2018 Albumin mass conc 3.8 g/dL Normal 3.2-5.2 [facility] Comment on above: Performed By: #### C BCDIF, HCGQT, LIPASE, CMET, BHBA #### Unless otherwise noted, all testing performed by [place] [address] CLIA: [id number] Supervisor [place]: Cristofer Perry M.D. ALP enzyme act/vol 86 U/L Normal 40-140 [facility] Comment on above: Performed By: #### C BCDIF, HCGQT, LIPASE, CMET, BHBA #### Unless otherwise noted, all testing performed by [place] [address] CLIA: [id number] Supervisor [place]: Cristofer Perry M.D. ALT enzyme act/vol 38 U/L Normal 14-65 [facility] Comment on above: Result Comment: This test result might be falsely depressed or falsely elevated on samples drawn from patients taking Sulfasalazine and Sulfapyridine. Venipuncture should occur prior to taking either of these drugs. Performed By: #### C BCDIF, HCGQT, LIPASE, CMET, BHBA #### Unless otherwise noted, all testing performed by [place] [address] CLIA: [id number] Supervisor [place]: Cristofer Perry M.D. AST enzyme act/vol 11 U/L Normal 0-45 [facility] Comment on above: Result Comment: This test result might be falsely depressed or falsely elevated on samples drawn from patients taking Sulfasalazine and Sulfapyridine. Venipuncture should occur prior to taking either of these drugs. Performed By: #### C BCDIF, HCGQT, LIPASE, CMET, BHBA #### Unless otherwise noted, all testing performed by [address] [place], [place] [address] CLIA: [id number] Supervisor [place]: Cristofer Perry M.D. Bilirubin mass conc 0.3 mg/dL Normal 0.3-1.2 [facility] Comment on above: Performed By: #### C BCDIF, HCGQT, LIPASE, CMET, BHBA #### Unless otherwise noted, all testing performed by [place] [address] CLIA: [id number] Supervisor [place]: Cristofer Perry M.D. Calcium mass conc 9.0 mg/dL Normal 8.4-10.2 [facility] Comment on above: Performed By: #### C BCDIF, HCGQT, LIPASE, CMET, BHBA #### Unless otherwise noted, all testing performed by [place] [address] CLIA: [id number] Supervisor [place]: Cristofer Perry M.D. Chloride molar conc 106 mmol/L Normal 98-108 [facility] Comment on above: Performed By: #### C BCDIF, HCGQT, LIPASE, CMET, BHBA #### Unless otherwise noted, all testing performed by [place] [address] CLIA: [id number] Supervisor [place]: Cristofer Perry M.D. CO2 molar conc 20 mmol/L Low 21-32 [facility] Comment on above: Performed By: #### C BCDIF, HCGQT, LIPASE, CMET, BHBA #### Unless otherwise noted, all testing performed by [place] [address] CLIA: [id number] Supervisor [place]: Cristofer Perry M.D. Creatinine mass conc 0.85 mg/dL Normal 0.40-1.10 [facility] Comment on above: Performed By: #### C BCDIF, HCGQT, LIPASE, CMET, BHBA #### Unless otherwise noted, all testing performed by [place] [address] CLIA: [id number] Supervisor [place]: Cristofer Perry M.D. GFR/1.73 sq M predicted among blacks MDRD vol rate/area (S/P/Bld) mL/min/{1.73_m2} Normal [facility] Comment on above: Result Comment: Afri can Portuguese GFR Calc Performed By: #### C BCDIF, HCGQT, LIPASE, CMET, BHBA #### Unless otherwise noted, all testing performed by [place] [address] CLIA: [id number] Supervisor [place]: Cristofer Perry M.D. GFR/1.73 sq M predicted among non-blacks MDRD vol rate/area (S/P/Bld) mL/min/{1.73_m2} Normal [facility] Comment on above: Result Comment: Non- GFR [...] Unless otherwise noted, all testing performed by [place] [address] CLIA: [id number] Supervisor [place]: Cristofer Perry M.D. Glucose mass conc 360 mg/dL High 70-99 [facility] Comment on above: Result Comment: This test result might be falsely depressed or falsely elevated on samples drawn from patients taking Sulfasalazine and Sulfapyridine. Venipuncture should occur prior to taking either of these drugs. Performed By: #### C BCDIF, HCGQT, LIPASE, CMET, BHBA #### Unless otherwise noted, all testing performed by [place] [address] CLIA: [id number] Supervisor [place]: Cristofer Perry M.D. Potassium molar conc 3.5 mmol/L Normal 3.5-5.1 [facility] Comment on above: Performed By: #### C BCDIF, HCGQT, LIPASE, CMET, BHBA #### Unless otherwise noted, all testing performed by [place] [address] CLIA: [id number] Supervisor [place]: Cristofer Perry M.D. Protein mass conc 8.2 g/dL High 6.0-8.0 [facility] Comment on above: Performed By: #### C BCDIF, HCGQT, LIPASE, CMET, BHBA #### Unless otherwise noted, all testing performed by [place] [phone] CLIA: [id number] Supervisor [place]: Cristofer Perry M.D. Sodium molar conc 137 mmol/L Normal 135-145 [facility] Comment on above: Performed By: #### C BCDIF, HCGQT, LIPASE, CMET, BHBA #### Unless otherwise noted, all testing performed by [place] [address] CLIA: [id number] Supervisor [place]: Cristofer Perry M.D. Urea nitrogen mass conc 11 mg/dL Normal 8-25 [facility] Comment on above: Performed By: #### C BCDIF, HCGQT, LIPASE, CMET, BHBA #### Unless otherwise noted, all testing performed by [place] [address] CLIA: [id number] Supervisor [place]: Cristofer Perry M.D. Culture, Urineon 02-01-2018 Culture, Urine Test Name: Culture, Urine Culture Status: Final Culture Report: No significant growth. Micro Source: Urine Normal [facility] Comment on above: Performed By: #### C BCDIF, HCGQT, LIPASE, CMET, BHBA #### Unless otherwise noted, all testing performed by [place] [address] CLIA: [id number] Supervisor [place]: Cristofer Perry M.D. Culture, Urine Test Name: Culture, Urine Culture Status: Final Culture Report: No Growth - Day 2 Micro Source: Urine Normal [facility] Comment on above: Performed By: #### C BCDIF, HCGQT, LIPASE, CMET, BHBA #### Unless otherwise noted, all testing performed by [place] [address] CLIA: [id number] Supervisor [place]: Cristofer Perry M.D. HCG, Quantitativeon 02-02-20 18 HCG, Quantitative 4321 mIU/mL Normal [facility] Comment on above: Result Comment: HCG, Quant. Reference Range: [Units mIU/ml] Gestation Age Approx.HCG 0.2-1Week 5-50 1-2 Weeks 50-500 2-3 Weeks 100-5,000 3-4 Weeks 500-10,000 4-5 Weeks 1,000-50,000 6-8 Weeks 15,000-200,000 2-3 Months 10,000-100,000 Non- Females <5 Males <5 Performed By: #### C BCDIF, HCGQT, LIPASE, CMET, BHBA #### Unless otherwise noted, all testing performed by [place] [address] CLIA: [id number] Supervisor [place]: Cristofer Perry M.D. Lipaseon 02-01-2018 Lipase enzyme act/vol 136 U/L Normal 73-393 [facility] Comment on above: Performed By: #### C BCDIF, HCGQT, LIPASE, CMET, BHBA #### Unless otherwise noted, all testing performed by [place] [address] CLIA: [id number] Supervisor [place]: Cristofer Perry M.D. Urinalysis, Routineon 2017 Bacteria LM.HPF #/area (Urine sed) Rare Normal NS;RARE [facility] Comment on above: Performed By: #### U A #### Unless otherwise noted, all testing performed by [place] [address] CLIA: [id number] Supervisor [place]: Cristofer Perry M.D. Bilirubin,Urine Negative Normal NEG;NEGATIVE [facility] Comment on above: Performed By: #### U A #### Unless otherwise noted, all testing performed by [place] [address] CLIA: [id number] Supervisor [place]: Cristofer Perry M.D. Blood,Urine Negative Normal NEG;NEGATIVE [facility] Comment on above: Performed By: #### U A #### Unless otherwise noted, all testing performed by [place] [address] CLIA: [id number] Supervisor [place]: Cristofer Perry M.D. Character Nom (U) Clear Normal [facility] Comment on above: Performed By: #### U A #### Unless otherwise noted, all testing performed by [place] [address] CLIA: [id number] Supervisor [place]: Cristofer Perry M.D. Color Nom (U) Straw Normal [facility] Comment on above: Performed By: #### U A #### Unless otherwise noted, all testing performed by [place] [phone] CLIA: [id number] Supervisor [place]: Cristofer Perry M.D. Glucose Ql (U) >= 500 High < 70 [facility] Comment on above: Performed By: #### U A #### Unless otherwise noted, all testing performed by [place] [phone] CLIA: [id number] Supervisor [place]: Cristofer Perry M.D. Ketone,Urine Trace Abnormal NEG;NEGATIVE [facility] Comment on above: Performed By: #### U A #### Unless otherwise noted, all testing performed by [place] [address] CLIA: [id number] Supervisor [place]: Cristofer Perry M.D. Leuk.Esterase,Urine Negative Normal Negative [facility] Comment on above: Performed By: #### U A #### Unless otherwise noted, all testing performed by [place] [phone] CLIA: [id number] Supervisor [place]: Cristofer Perry M.D. Nitrite,Urine Negative Normal NEG;NEGATIVE [facility] Comment on above: Performed By: #### U A #### Unless otherwise noted, all testing performed by [place] [address] CLIA: [id number] Supervisor [place]: Cristofer Perry M.D. pH (U) 5.0 [pH] Normal 4.5-8.0 [facility] Comment on above: Performed By: #### U A #### Unless otherwise noted, all testing performed by [place] [address] CLIA: [id number] Supervisor [place]: Cristofer Perry M.D. Protein mass conc (U) Negative Normal NEG;NEGATIVE [facility] Comment on above: Performed By: #### U A #### Unless otherwise noted, all testing performed by [place] [address] CLIA: [id number] Supervisor [place]: Cristofer Perry M.D. RBC LM.HPF #/area (Urine sed) /[HPF] Normal 0-5 [facility] Comment on above: Performed By: #### U A #### Unless otherwise noted, all testing performed by [place] [address] CLIA: [id number] Supervisor [place]: Cristofer Perry M.D. Specific [place],Urine 1.031 High 1.003-1.029 [facility] Comment on above: Performed By: #### U A #### Unless otherwise noted, all testing performed by [place] [address] CLIA: [id number] Supervisor [place]: Cristofer Perry M.D. Squamous Epithelial < 1 Normal 0-40 [facility] Comment on above: Performed By: #### U A #### Unless otherwise noted, all testing performed by [place] [address] CLIA: [id number] Supervisor [place]: Cristofer Perry M.D. Urobilinogen,Urine < 2.0 Normal <2 [facility] Comment on above: Performed By: #### U A #### Unless otherwise noted, all testing performed by [place] [address] CLIA: [id number] Supervisor [place]: Cristofer Perry M.D. WBC,Urine 1 /HPF Normal 0-5 [facility] Comment on above: Performed By: #### U A #### Unless otherwise noted, all testing performed by [place] [phone] CLIA: [id number] Supervisor [place]: Cristofer Perry M.D. Venous Blood Gason 8 Allens Test N/A Normal [facility] Comment on above: Performed By: #### V BG #### Unless otherwise noted, all testing performed by [place] [address] CLIA: [id number] Supervisor [place]: Cristofer Perry M.D. Base Excess, Venous -3.0 mmol/L Low -2.0-2.0 [facility] Comment on above: Performed By: #### V BG #### Unless otherwise noted, all testing performed by [place] [address] CLIA: [id number] Supervisor [place]: Cristofer Perry M.D. Blood Gas Instrument ;ED Normal [facility] Comment on above: Performed By: #### V BG #### Unless otherwise noted, all testing performed by [place] [address] CLIA: [id number] Supervisor [place]: Cristofer Perry M.D. Carboxyhemoglobin, Venous 2.3 Normal [facility] Comment on above: Result Comment: Subu rban Non-Smoker <1.5% of total Hgb Smoker 1.5 - 5.0 % of total Hgb Heavy Smoker 5.0 - 9.0 % of total Hgb Performed By: #### V BG #### Unless otherwise noted, all testing performed by [place] [phone] CLIA: [id number] Supervisor [place]: Cristofer Perry M.D. DeOxyhemoglobin (HHB), Venous < 2.4 Normal [facility] Comment on above: Result Comment: noti fied at Value below reportable range < 2.4 Performed By: #### V BG #### Unless otherwise noted, all testing performed by [place] [phone] CLIA: [id number] Supervisor [place]: Cristofer Perry M.D. Drawn By (Bld Gas) lab Normal [facility] Comment on above: Performed By: #### V BG #### Unless otherwise noted, all testing performed by [place] [address] CLIA: [id number] Supervisor [place]: Cristofer Perry M.D. FIO2 21.0 % Normal 21-100 [facility] Comment on above: Performed By: #### V BG #### Unless otherwise noted, all testing performed by [place] [address] CLIA: [id number] Supervisor [place]: Cristofer Perry M.D. Hematocrit Volume Fraction (Bld) 42.4 % Normal 36-46 [facility] Comment on above: Performed By: #### V BG #### Unless otherwise noted, all testing performed by [place] [address] CLIA: [id number] Supervisor [place]: Cristofer Perry M.D. Hemoglobin mass conc (Bld) 95.8 % Normal 92-99 [facility] Comment on above: Performed By: #### V BG #### Unless otherwise noted, all testing performed by [place] [phone] CLIA: [id number] Supervisor [place]: Cristofer Perry M.D. Hemoglobin mass conc (Bld) 13.8 g/dL Normal 12.0-16.0 [facility] Comment on above: Performed By: #### V BG #### Unless otherwise noted, all testing performed by [place] [phone] CLIA: [id number] Supervisor [place]: Cristofer Perry M.D. Hemoglobin mass conc (Bld) 99.3 % High 40-70 [facility] Comment on above: Result Comment: Valu e above reference range Performed By: #### V BG #### Unless otherwise noted, all testing performed by [place] [phone] CLIA: [id number] Supervisor [place]: Cristofer Perry M.D. Methemoglobin, Venous 1.3 Normal < 2.0 [facility] Comment on above: Performed By: #### V BG #### Unless otherwise noted, all testing performed by [address] [place], [place] [address] CLIA: [id number] Supervisor [place]: Cristofer Perry M.D. O2 CT, Venous 8.4 mmol/L Normal [facility] Comment on above: Performed By: #### V BG #### Unless otherwise noted, all testing performed by [place] [address] CLIA: [id number] Supervisor [place]: Cristofer Perry M.D. O2 Device Room Air Normal [facility] Comment on above: Performed By: #### V BG #### Unless otherwise noted, all testing performed by [place] [address] CLIA: [id number] Supervisor [place]: Cristofer Perry M.D. pCO2 (temp conv.), Venous 38.3 mm Hg Low [address] [place] [address] Comment on above: Performed By: #### V BG #### Unless otherwise noted, all testing performed by [place] [address] CLIA: [id number] Supervisor [place]: Cristofer Perry M.D. pCO2, Venous 38.3 mm Hg Low [address] [place] [address] Comment on above: Result Comment: Valu e below reference range Performed By: #### V BG #### Unless otherwise noted, all testing performed by [place] [address] CLIA: [id number] Supervisor Marble: Cristofer Perry M.D. pH (temp conv.), Venous 7.367 Normal 7.32-7.42 [facility] Comment on above: Performed By: #### V BG #### Unless otherwise noted, all testing performed by [place] [address] CLIA: [id number] Supervisor Marble: Cristofer Perry M.D. pH, Venous 7.367 Normal 7.32-7.42 [facility] Comment on above: Performed By: #### V BG #### Unless otherwise noted, all testing performed by [place] [address] CLIA: [id number] Supervisor Marble: Cristofer Perry M.D. pO2(temp conv.), Venous 149 mm Hg High [address] [place] [address] Comment on above: Performed By: #### V BG #### Unless otherwise noted, all testing performed by [place] [phone] CLIA: [id number] Supervisor Marble: Cristofer Perry M.D. pO2, Venous 149 mm Hg High [address] [place] [address] Comment on above: Performed By: #### V BG #### Unless otherwise noted, all testing performed by [place] [phone] CLIA: [id number] Supervisor Marble: Cristofer Perry M.D. Site (Bld Gas) OTHER Normal [facility] Comment on above: Performed By: #### V BG #### Unless otherwise noted, all testing performed by [place] [address] CLIA: [id number] Supervisor Marble: Cristofer Perry M.D. VPO2 22.0 mmol/L Low 24-28 [facility] Comment on above: Performed By: #### V BG #### Unless otherwise noted, all testing performed by [address] [place] [address] CLIA: [id number] Supervisor Marble: Cristofer Perry M.D. iSTAT Pediatric Panelon 01-08 Chloride molar conc 105 mmol/L Normal 98-109 [facility] Comment on above: Performed By: #### E RPED #### Unless otherwise noted, all testing performed by [place] [address] CLIA: [id number] Supervisor Marble: Cristofer Perry M.D. CO2 molar conc 22 mmol/L Low 23-32 [facility] Comment on above: Performed By: #### E RPED #### Unless otherwise noted, all testing performed by [place] [address] CLIA: [id number] Supervisor Marble: Cristofer Perry M.D. Creatinine mass conc 0.4 mg/dL Normal 0.40-1.10 [facility] Comment on above: Performed By: #### E RPED #### Unless otherwise noted, all testing performed by [place] [address] CLIA: [id number] Supervisor Marble: Cristofer Perry M.D. Glucose mass conc 259 mg/dL High 70-99 [facility] Comment on above: Performed By: #### E RPED #### Unless otherwise noted, all testing performed by [place] [address] CLIA: [id number] Supervisor Marble: Cristofer Perry M.D. Hematocrit Volume Fraction (Bld) 38 % Normal 38.0-51.0 [facility] Comment on above: Performed By: #### E RPED #### Unless otherwise noted, all testing performed by [place] [address] CLIA: [id number] Supervisor Marble: Cristofer Perry M.D. Hemoglobin mass conc (Bld) 12.9 g/dL Normal 12.0-17.0 [facility] Comment on above: Performed By: #### E RPED #### Unless otherwise noted, all testing performed by [place] [address] CLIA: [id number] Supervisor Marble: Cristofer Perry M.D. Ionized Calcm 1.14 mmol/L Normal 1.12-1.32 [facility] Comment on above: Performed By: #### E RPED #### Unless otherwise noted, all testing performed by [place] [address] CLIA: [id number] Supervisor Marble: Cristofer Perry M.D. Potassium molar conc 4.3 mmol/L Normal 3.5-4.9 [facility] Comment on above: Performed By: #### E RPED #### Unless otherwise noted, all testing performed by [place] [address] CLIA: [id number] Supervisor Marble: Cristofer Perry M.D. Sodium molar conc 137 mmol/L Normal 136-141 [facility] Comment on above: Performed By: #### E RPED #### Unless otherwise noted, all testing performed by [place] [address] CLIA: [id number] Supervisor Marble: Cristofer Perry M.D. Urea nitrogen mass conc 9 mg/dL Normal 8-26 [facility] Comment on above: Performed By: #### E RPED #### Unless otherwise noted, all testing performed by [place] [address] CLIA: [id number] Supervisor Marble: Cristofer Perry M.D. Chloride molar conc 102 mmol/L Normal 98-109 [facility] Comment on above: Performed By: #### E RPED #### Unless otherwise noted, all testing performed by [place] [address] CLIA: [id number] Supervisor Marble: Cristofer Perry M.D. CO2 molar conc 21 mmol/L Low 23-32 [facility] Comment on above: Performed By: #### E RPED #### Unless otherwise noted, all testing performed by [place] [address] CLIA: [id number] Supervisor Marble: Cristofer Perry M.D. Creatinine mass conc 0.4 mg/dL Normal 0.40-1.10 [facility] Comment on above: Performed By: #### E RPED #### Unless otherwise noted, all testing performed by [place] [address] CLIA: [id number] Supervisor Marble: Cristofer Perry M.D. Glucose mass conc 350 mg/dL High 70-99 [facility] Comment on above: Performed By: #### E RPED #### Unless otherwise noted, all testing performed by [place] [address] CLIA: [id number] Supervisor Marble: Cristofer Perry M.D. Hematocrit Volume Fraction (Bld) 39 % Normal 38.0-51.0 [facility] Comment on above: Performed By: #### E RPED #### Unless otherwise noted, all testing performed by [place] [address] CLIA: [id number] Supervisor Marble: Cristofer Perry M.D. Hemoglobin mass conc (Bld) 13.3 g/dL Normal 12.0-17.0 [facility] Comment on above: Performed By: #### E RPED #### Unless otherwise noted, all testing performed by [place] [phone] CLIA: [id number] Supervisor Marble: Cristofer Perry M.D. Ionized Calcm 1.19 mmol/L Normal 1.12-1.32 [facility] Comment on above: Performed By: #### E RPED #### Unless otherwise noted, all testing performed by [place] [address] CLIA: [id number] Supervisor Marble: Cristofer Perry M.D. Potassium molar conc 3.8 mmol/L Normal 3.5-4.9 [facility] Comment on above: Performed By: #### E RPED #### Unless otherwise noted, all testing performed by [place] [address] CLIA: [id number] Supervisor Marble: Cristofer Perry M.D. Sodium molar conc 137 mmol/L Normal 136-141 [facility] Comment on above: Performed By: #### E RPED #### Unless otherwise noted, all testing performed by [place] [address] CLIA: [id number] Supervisor Marble: Cristofer Perry M.D. Urea nitrogen mass conc 10 mg/dL Normal 8-26 [facility] Comment on above: Performed By: #### E RPED #### Unless otherwise noted, all testing performed by [facility] [address]. [place], [place] [address] CLIA: [id number] Supervisor Marble: Cristofer Perry M.D. EMERGENCY DEPARTMENTon 12-14 EMERGENCY DEPARTMENT [address] [address] HEALTH INFORMATION MANAGEMENT EMERGENCY DEPARTMENT : [phone] Signed Patient: MELISSA KAUR Acct:[id number] MRUN: [id number] : 1995 Sex: F Loc: ED ADM [...] Abuse: No Hx Suspected Abuse: No - Ramsey/Gender ID What is your current Gender Identity? [...] intact - Skin Skin Color: Present: Normal, [place] Skin exam: Present: warm, dry - Vital [...] sl.cloudy (Clear) Urine pH 5 Ur Specific Corinth 1.020 (1.015-1.025) Urine Protein Negative (Negative) Urine [...] Provider: 12/14/17 18:55 - Dictation Amendments/Documentatio n: [employer] Document Only Electronically Generated By: SARAI PAULA MD Generated Date/Time: 12/14/171934 Electronically Signed By: SARAI PAULA MD Signed Date/Time 12/14/172023 Co Signed Electronically By: Tamera Signed Date/Time: CC: MILLY SINCLAIR Normal [facility] LURNCon 12-14-2017 LURNC Urine Culture, Routi ne = Final reportPerformed at: [facility] [place], [place] [id number] Director: Korey Corral PhD, Phone: [phone] REPORT: Previous result was SEE BELOW at [...] SPiperacillin/Tazobacta m STetracycline STobramycin STrimethoprim/Sulfa SPerformed at: [facility] Labtoo.[place]Teresa [place] [id number] [place], [place] [id number] Director: Korey Corral PhD, Phone: [phone] Urine Culture = urine, void Normal [facility] Comment on above: Performed By: #### M IC2 ####[address] [phone] (Urine)on 12-15-19 18 HCG ( test) Ql (U) Negative Normal Negative [facility] Comment on above: Performed By: #### P REGU ####[address] [phone] UA w/Micrscopic-reflex cultu reon 12-14-2017 Appearance sl.cloudy Normal Clear [facility] Comment on above: Performed By: #### U AMRC ####[address] [phone] Bacteria 2+ /hpf Normal 0 - 1+ [facility] Comment on above: Performed By: #### U AMRC ####[address] [address] Bilirubin Negative Normal Negative [facility] Comment on above: Performed By: #### U AMRC ####[address] [address] Blood 10 Abnormal Negative [facility] Comment on above: Performed By: #### U AMRC ####[address] [address] Casts VP PRODUCTION Normal [facility] Comment on above: Performed By: #### U AMRC ####[address] [address] Casts. VP PRODUCTION Normal [facility] Comment on above: Performed By: #### U AMRC ####[address] [address] Color yellow Normal Yellow [facility] Comment on above: Performed By: #### U AMRC ####[address] [address] Crystals VP PRODUCTION Normal [facility] Comment on above: Performed By: #### U AMRC ####[address] [address] Crystals. VP PRODUCTION Normal [facility] Comment on above: Performed By: #### U AMRC ####[address] [address] Epithelial Cells >15 Normal 0 - 6 [facility] Comment on above: Performed By: #### U AMRC ####[address] [address] Glucose 1000 Abnormal Negative [facility] Comment on above: Performed By: #### U AMRC ####[address] [address] Ketones Trace Normal Negative [facility] Comment on above: Performed By: #### U AMRC ####[address] [address] Leukocytes Esterase Trace Abnormal Negative [facility] Comment on above: Performed By: #### U AMRC ####[address] [address] Mucus VP PRODUCTION Normal [facility] Comment on above: Performed By: #### U AMRC ####[address] [address] Nitrites Negative Normal Negative [facility] Comment on above: Performed By: #### U AMRC ####[address] [address] pH 5 Normal [facility] Comment on above: Performed By: #### U AMRC ####[address] [address] Protein Negative Normal Negative [facility] Comment on above: Performed By: #### U AMRC ####[address] [address] Specific [place] 1.020 Normal 1.015-1.025 [facility] Comment on above: Performed By: #### U AMRC ####[address] [address] Trichomonas VP PRODUCTION Normal [facility] Comment on above: Performed By: #### U AMRC ####[address] [address] Urine, erythrocytes 2-5 Normal 0 - 2 [facility] Comment on above: Performed By: #### U AMRC ####[address] [address] Urobilinogen NORMAL Normal Normal-1.0 [facility] Comment on above: Performed By: #### U AMRC ####[facility] [place] [address] WBC 2-5 Normal 0 - 6 [facility] Comment on above: Performed By: #### U AMRC ####[facility] [place] [address] Yeast VP PRODUCTION Normal [facility] Comment on above: Performed By: #### U AMRC ####[address] [address] Other VP PRODUCTION Normal [facility] Comment on above: Performed By: #### U AMRC ####[address] [address] Basic Metabolic Panelon 11-08 Anion gap 10.0 mmol/L Normal 6.0-18.0 [facility] Comment on above: Result Comment: PLEA SE NOTE:The calculated Anion Gap(AGAP) does not include Potassium. Performed By: #### 6 9405-9, 62472-3o3, 72144-5 ####[facility], [address] [place], [place]. Calcium 9.2 mg/dL Normal 8.9-10.3 [facility] Comment on above: Performed By: #### 6 9405-9, 73373-1f6, 00612-4 ####[facility], [address] [facility] [place] Chloride 103 mmol/L Normal 98-107 [facility] Comment on above: Performed By: #### 6 9405-9, 22776-6b1, 98181-3 ####[facility], [address] [facility] [place] CO2 26 mmol/L Normal 22-32 [facility] Comment on above: Performed By: #### 6 9405-9, 59340-3m7, 85547-6 ####[facility], [address] [place], [place]. Creatinine 0.82 mg/dL Normal 0.66-1.30 [facility] Comment on above: Performed By: #### 6 9405-9, 95809-9r8, 97605-0 ####[facility], [address] [facility], [place], [place]. Glucose mass conc 178 mg/dL High 70-110 [facility] Comment on above: Performed By: #### 6 9405-9, 59919-2x9, 16982-7 ####[facility], [address] [place], [place]. Potassium molar conc 3.5 mmol/L Low 3.6-5.1 [facility] Comment on above: Performed By: #### 6 9405-9, 58896-9c8, 94351-7 ####[facility], [address] [place] [address]. Sodium 139 mmol/L Normal 136-145 [facility] Comment on above: Performed By: #### 6 9405-9, 94187-7a1, 58865-9 ####[facility], [address] [place], [place]. Urea nitrogen 16 mg/dL Normal 8-20 [facility] Comment on above: Performed By: #### 6 9405-9, 46142-9x3, 93003-9 ####[facility], [address] [place], [place]. CBC with Differentialon 06-2 Basophils Auto #/vol (Bld) 0.3 % Normal 0.0-2.0 [facility] Comment on above: Performed By: #### 5 7021-8 ####[facility], [address] [place], [place]. Basophils Auto #/vol (Bld) 0.00 thou/mcL Normal 0.00-0.20 [facility] Comment on above: Performed By: #### 5 7021-8 ####[facility], [address] [place], [place]. Eosinophils 0.10 thou/mcL Normal 0.00-0.70 [facility] Comment on above: Performed By: #### 5 7021-8 ####PRABDOULAYEJOESPHNOV[facility], [address] [place], [place]. Eosinophils/100 leukocytes 1.3 % Normal 0.0-7.0 [facility] Comment on above: Performed By: #### 5 7021-8 ####[facility], [address] [place], [place]. Erythrocyte distribution width Auto Ratio (RBC) 13.8 % Normal 11.0-14.8 [facility] Comment on above: Performed By: #### 5 7021-8 ####[facility], [address] [place], [place]. Erythrocytes (RBC) 5.24 million/mcL High 3.80-5.10 [facility] Comment on above: Performed By: #### 5 7021-8 ####[facility], [address] [place], [place]. Hematocrit (HCT) 41.0 % Normal 35.0-45.0 [facility] Comment on above: Performed By: #### 5 7021-8 ####[facility], [address] [place], [place]. Hemoglobin mass conc (Bld) 14.0 g/dL Normal 12.0-16.0 [facility] Comment on above: Performed By: #### 5 7021-8 ####[facility], [address] [place], [place]. Lymphocytes 2.60 thou/mcL Normal 1.00-4.80 [facility] Comment on above: Performed By: #### 5 7021-8 ####[facility], [address] [place], [place]. Lymphocytes/100 leukocytes 31.2 % Normal 22.0-44.0 [facility] Comment on above: Performed By: #### 5 7021-8 ####[facility], [address] [place], [place]. MCH 26.8 Picograms Low 27.0-34.0 [facility] Comment on above: Performed By: #### 5 7021-8 ####[facility], [address] [place], [place]. MCHC mass conc (RBC) 34.2 g/dL Normal 32.0-36.0 [facility] Comment on above: Performed By: #### 5 7021-8 ####[facility], [address], [place]. MCV 78.3 fL Low 80.0-97.0 [facility] Comment on above: Performed By: #### 5 7021-8 ####[facility], [address] [place], [place]. Monocytes 0.50 thou/mcL Normal 0.00-0.90 [facility] Comment on above: Performed By: #### 5 7021-8 ####[facility], [address] [place], [place]. Monocytes/100 leukocytes 6.0 % Normal 0.0-12.0 [facility] Comment on above: Performed By: #### 5 7021-8 ####[facility], [address] [place], [place]. Neutrophils 5.20 thou/mcL Normal 1.80-7.70 [facility] Comment on above: Performed By: #### 5 7021-8 ####[facility], [address] [place], [place]. Neutrophils/100 WBC Auto (Bld) 61.2 % Normal 40.0-70.0 [facility] Comment on above: Performed By: #### 5 7021-8 ####[facility], [address] [place], [place]. Platelet mean volume (PMV) 8.2 fL Normal 6.2-12.1 [facility] Comment on above: Performed By: #### 5 7021-8 ####[facility], [address] [place], [place]. Platelets 265 thou/mcL Normal 142-424 [facility] Comment on above: Performed By: #### 5 7021-8 ####[facility], [address] [place], [place]. WBC (Leukocytes) 8.4 thou/mcL Normal 4.6-10.2 [facility] Comment on above: Performed By: #### 5 7021-8 ####[facility], [address] [facility] [place] [place]. 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 Attending physician: Dr. Morales have performed a [...] normal excursion. No stridor or droolingCARDIAC: RRRSKIN: [place], warm, dryABD: Diffuse tenderness to palpation over [...] Result(s): Date Order Results 11/29/2017 20:14 Specific [place] Urine POCT N 1.030 11/29/2017 20:14 pH Urine POCT N 5 11/29/2017 20:17 Appearance Urine A HAZY 11/29/2017 20:17 Specific [place] Urine H 1.036 11/29/2017 20:17 Glucose Urine [...] adnexal mass.Immediate final results were provided per protocol.[facility] thanks you for the opportunity to care for your patient. Workstation ID: [id number] FOLLOW UP:FOLLOW-UP APPOINTMENTS: Provider: Specialty: Address: Date: Follow up with primary care provider 3 to 4 days Provider: Specialty: Address: Date: Return to Emergency Department Follow-up as needed Normal [facility] ED Pat Abebeon 11-30-2017 ED [place] [address] Emergency Department Discharge Instructions MELISSA BYRNE , [...] [facility] Name MELISSA BYRNE MRN (COL)-[id number] PLEASE READ THE FOLLOWING REGARDING YOUR MEDICATIONS [...] doses are changed, or new medications (including prwr-vzn-bxaxjyk products) are added. If you have any [...] TAKE UNTIL YOU TALK TO YOUR DOCTORNone [place] [address] [facility] Discharge Instructions Name: MELISSA BYRNE Current Date: 11/29/2017 23:26:24 : 1995 12:00 PM Primary Physician: Physician, PCP Unknown We would like to thank you for choosing [facility] for your emergency medical needs. We examined [...] health of those around you. Call the [place] [employer] at 8-560-ICYK-[place] or the [place] [employer] at 9-450-BOX-7560 for more information.High blood pressure: Your screening blood pressure today was 114 mm Hg / . Hypertension (high blood pressure) is blood pressure over 120/80. People with hypertension should contact their primary care provider within 30 days to follow up. Check your patient portal for additional blood pressure information.Immunizatio ns:Immunization is a way to protect against deadly infections. Discuss this with your child's major league baseball player, or Public Health Department. Your family practice doctor can determine if you need pneumonia or flu vaccine. The [facility][1] Department can be reached at .Domestic Violence:If [...] suicide hotline, anytime day or night, at 0-724-408-HXEJ. Pharmacy Information:Below is a list of 24 hour pharmacies that we are aware of. We suggest that you call the specific pharmacy for their hours before traveling to a location. Hours may vary on holidays. [facility] [address] [place], [place] [phone] [place], [place] [phone] [place] [address] [phone] [place] [address] [phone] [place] 834810 [phone] [place] [address] [phone] [place] [address] [phone] Take all medications as directed. If you need prescription assistance, contact the following agencies:?? Partnership for Prescription Assistance at or www.MOGx.org?? [facility] Best Rx at or www.Nextworthrx.org?? [employer] is a site with many valuable coupons [...] cyst, if your caregiver is not a fisher terrapin.?? Get your yearly and recommended pelvic examinations [...] 05/26/2006 Document Re-Released: 05/14/2010ExitCare?? Patient Information ??2011 [employer].VIRUSES OR BACTERIA: WHAT'S GOT YOU SICK?Antibiotics only [...] patient education materials, prescriptions and follow-up instructions: I, MELISSA BYRNE, have received the above patient education materials/instructions and have verbalized understanding: Date Time Patien t Signature Date Time Provid er Signature Normal [facility] ED Physician Noteson 018 ED Physician Notes [...] this documentation, there is a possibility of ffkga-a-ybep errors inherent to this technology that may [...] Immediate final results were provided per protocol. Ang Rankin thanks you for the opportunity to [...] ORDERS PLACED: Laboratory POC Manual Dipstick (CO) Daovnte Rebolledo November 29, 2017 20:11 Completed Urinalysis [...] Emergency November 29, 2017 20:32 Ordered Normal [facility] ED Physician Notes PDF Normal [facility] GFRaaon 11-30-2017 eGFR (black) mL/min/{1.73_m2} Normal [facility] Comment on above: Result Comment: The MDRD equation has not been validated for those over 70 years, women, patients with serious co-morbid conditions, or with extremes of bodysize, muscle mass of nutritional status. Performed By: #### 6 9405-9, 34876-1h0, 28460-7 ####[facility], [address] [place], [place]. GFRbbon 11-30-2017 eGFR (non-black) mL/min/{1.73_m2} Normal [facility] Comment on above: Performed By: #### 6 9405-9, 64425-0e9, 33755-4 ####[facility], [address] [place], [place]. 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 Attending physician: Dr. Shannon I have performed [...] No stridor or drooling CARDIAC: RRR SKIN: [place], warm, dry ABD: Diffuse tenderness to palpation [...] Use Tobacco No qualifying data available. Normal [facility] ED Physician Notes PDF Normal [facility] NV Duplex Abd/Pelvis Retrope r Completeon 11-29-2017 [...] adnexal mass.Immediate final results were provided per protocol.[facility] thanks you for the opportunity to care for your patient. Workstation ID: [id number] - [id number] FINAL REPORT Dictated By: Amado Gilman MD 11/29/2017 21:34Assigned Physician: Amado Gilman MDReviewed and Electronically Signed By: Amado Gilman MD 11/29/2017 21:39Transcribed by: TAMI 11/29/2017 21:34Technologist: RANI Normal [facility] US Pelvis Non-OB Completeon 11-29-2017 US Pelvis [...] adnexal mass.Immediate final results were provided per protocol.[facility] thanks you for the opportunity to care for your patient. Workstation ID: [id number] - [id number] FINAL REPORT Dictated By: Amado Gilman MD 11/29/2017 21:34Assigned Physician: Amado Gilman MDReviewed and Electronically Signed By: Amado Gilman MD 11/29/2017 21:39Transcribed by: TAMI 11/29/2017 21:34Technologist: RANI Heredia [facility] US Transvaginalon 11-29-2017 US Transvaginal Study: Transabdomina [...] adnexal mass.Immediate final results were provided per protocol.[facility] thanks you for the opportunity to care for your patient. Workstation ID: [id number] - [id number] FINAL REPORT Dictated By: Amado Gilman MD 11/29/2017 21:34Assigned Physician: Amado Gilman MDReviewed and Electronically Signed By: Amado Gilman MD 11/29/2017 21:39Transcribed by: TAMI 11/29/2017 21:34Technologist: NMP Normal [facility] Urinalysis Microscopicon Urine, bacteria in sediment RARE Abnormal NONE/HPF [facility] Comment on above: Performed By: #### 5 8077-9, 20414-1 ####[facility], [facility] [place], [place]. Urine, erythrocytes in sediment by area 1 /[HPF] Normal 0-5 [facility] Comment on above: Performed By: #### 5 8077-9, 52836-8 ####[facility], [address] [place], [place]. Urine, leukocytes in sedmiment 1 /[HPF] Normal 0-5 [facility] Comment on above: Performed By: #### 5 8077-9, 49026-6 ####[facility], [address] [place], [place]. Urine, mucus presence in sediment RARE Abnormal NONE/LPF [facility] Comment on above: Performed By: #### 5 8077-9, 14449-0 ####[facility], [address] [place], [place]. Urine, squamous cells in sediment MANY Abnormal FEW/LPF [facility] Comment on above: Performed By: #### 5 8077-9, 48664-1 ####[facility], [address] [place], [place]. Urinalysis with Microscopic Automatic with Reflexon 11-29-2017 Bilirubin Urine Negative Normal NEGATIVE [facility] Comment on above: Performed By: #### 5 8077-9, 26932-8 ####[facility], [address] [place], [place]. Nitrite Urine Positive Abnormal NEGATIVE [facility] Comment on above: Performed By: #### 5 8077-9, 60308-4 ####[facility], [address] [place], [place]. Urine, appearance HAZY Abnormal CLEAR [facility] Comment on above: Performed By: #### 5 8077-9, 83630-9 ####[facility], [address] [place], [place]. Urine, color YELLOW Normal YELLOW [facility] Comment on above: Performed By: #### 5 8077-9, 13730-7 ####[facility], [address] [place], [place]. Urine, glucose presence 500MG/DL Abnormal NORMAL [facility] Comment on above: Performed By: #### 5 8077-9, 74938-4 ####[facility], [address] [place], [place]. Urine, hemoglobin presence Negative Normal NEGATIVE [facility] Comment on above: Performed By: #### 5 8077-9, 90779-7 ####[facility], [address] [place], [place]. Urine, ketones presence 5MG/DL Abnormal NEGATIVE [facility] Comment on above: Performed By: #### 5 8077-9, 11282-2 ####[facility], [address] [place], [place]. Urine, leukocyte esterase presence Negative Normal NEGATIVE [facility] Comment on above: Performed By: #### 5 8077-9, 43886-5 ####[facility], [address] [place], [place]. Urine, pH 5.0 [pH] Normal 4.5-8.0 [facility] Comment on above: Performed By: #### 5 8077-9, 10082-5 ####[facility], [address] [place], [place]. Urine, protein Negative Normal NEGATIVE [facility] Comment on above: Performed By: #### 5 8077-9, 57905-9 ####[facility], [address] [place], [place]. Urine, specific gravity 1.036 High 1.002-1.030 [facility] Comment on above: Performed By: #### 5 8077-9, 17973-0 ####[facility], [address] [place], [place]. Urobilinogen Urine NORMAL Normal NORMAL [facility] Comment on above: Performed By: #### 5 8077-9, 96064-1 ####[facility], [address] [place], [place]. [place] US Breast Uni Limited LTo n 11-20-2017 ITZEL US Breast Uni Limited LT DATE OF EXAM : 11/20/2017 10:41 AMEXAMINATION TYPE: ITZEL US Breast Uni Limited LTHISTORY: Recent clinical [...] follow-up for the patient's symptoms.BI-RADS Code 1-N: Negative.[facility] thanks you for the opportunity to care for your patient. Workstation ID: [id number] - [id number] FINAL REPORT Dictated By: Mihir Real MD 11/20/2017 10:50Assigned Physician: Mihir Real MD AReviewed and Electronically Signed By: Mihir Real MD 11/20/2017 10:53Transcribed by: [facility] 11/20/2017 10:50Technologist: GISELA Normal [facility] Antibody Screen Interpretati onon 11-15-2017 Interpretation and review of laboratory results Negative Normal NEGATIVE [facility] Comment on above: Performed By: #### 6 9405-9, 29452-1i5, 14393-4 ####[facility], [address] [place], [place]. Basic Metabolic Panelon Anion gap 7.0 mmol/L Normal 6.0-18.0 [facility] Comment on above: Result Comment: PLEA SE NOTE:The calculated Anion Gap(AGAP) does not include Potassium. Performed By: #### 6 9405-9, 81880-0n3, 66768-9 ####[facility], [address] [place], [place]. Calcium 10.1 mg/dL Normal 8.9-10.3 [facility] Comment on above: Performed By: #### 6 9405-9, 13368-9z8, 79935-9 ####[facility], [address] [place], [place]. Chloride 103 mmol/L Normal 98-107 [facility] Comment on above: Performed By: #### 6 9405-9, 99556-9w9, 20388-4 ####[facility], [address] [place], [place]. CO2 28 mmol/L Normal 22-32 [facility] Comment on above: Performed By: #### 6 9405-9, 35756-1w8, 77943-3 ####[facility], [address] [place], [place]. Creatinine 0.53 mg/dL Low 0.66-1.30 [facility] Comment on above: Performed By: #### 6 9405-9, 06271-2v6, 61267-5 ####[facility], [address] [place], [place]. Glucose mass conc 215 mg/dL High 70-110 [facility] Comment on above: Performed By: #### 6 9405-9, 98263-5h2, 89039-4 ####[facility], [address], [place]. Potassium molar conc 3.9 mmol/L Normal 3.6-5.1 [facility] Comment on above: Performed By: #### 6 9405-9, 62527-8g7, 56052-8 ####[facility], [address] [place], [place]. Sodium 138 mmol/L Normal 136-145 [facility] Comment on above: Performed By: #### 6 9405-9, 53620-9s9, 26274-6 ####[facility], [address] [place], [place]. Urea nitrogen 10 mg/dL Normal 8-20 [facility] Comment on above: Performed By: #### 6 9405-9, 64427-7x6, 42805-4 ####[facility], [address] [place], [place]. Blood Type ABO and Rh(D)on 0 11-15-2017 ABO+Rh group Positive Normal [facility] Comment on above: Performed By: #### 6 9405-9, 21986-3g8, 03971-8 ####[facility], [address] [place] [address]. CBC with Differentialon 06-0 Basophils Auto #/vol (Bld) 0.10 thou/mcL Normal 0.00-0.20 [facility] Comment on above: Performed By: #### 6 9405-9, 52507-2s0, 36802-4 ####[facility], [address] [place], [place]. Basophils Auto #/vol (Bld) 0.6 % Normal 0.0-2.0 [facility] Comment on above: Performed By: #### 6 9405-9, 55425-9y1, 06647-6 ####[facility], [address] [place], [place]. Eosinophils 0.10 thou/mcL Normal 0.00-0.70 [facility] Comment on above: Performed By: #### 6 9405-9, 97196-1h8, 82002-4 ####[facility], [address] [place], [place]. Eosinophils/100 leukocytes 0.9 % Normal 0.0-7.0 [facility] Comment on above: Performed By: #### 6 9405-9, 42631-2j3, 18854-7 ####[facility], [address] [place], [place]. Erythrocyte distribution width Auto Ratio (RBC) 14.1 % Normal 11.0-14.8 [facility] Comment on above: Performed By: #### 6 9405-9, 96553-0u2, 60363-2 ####[facility], [address] [place], [place]. Erythrocytes (RBC) 5.51 million/mcL High 3.80-5.10 [facility] Comment on above: Performed By: #### 6 9405-9, 08766-8a0, 15811-0 ####[facility], [address] [place], [place]. Hematocrit (HCT) 43.1 % Normal 35.0-45.0 [facility] Comment on above: Performed By: #### 6 9405-9, 75542-5b5, 59812-4 ####[facility], [address] [place], [place]. Hemoglobin mass conc (Bld) 15.0 g/dL Normal 12.0-16.0 [facility] Comment on above: Performed By: #### 6 9405-9, 74125-8f4, 14256-4 ####[facility], [address] [place], [place]. Lymphocytes 2.20 thou/mcL Normal 1.00-4.80 [facility] Comment on above: Performed By: #### 6 9405-9, 02978-3o5, 52281-9 ####[facility], [address] [place], [place]. Lymphocytes/100 leukocytes 25.7 % Normal 22.0-44.0 [facility] Comment on above: Performed By: #### 6 9405-9, 56485-3l3, 23482-3 ####[facility], [address] [place], [place]. MCH 27.2 Picograms Normal 27.0-34.0 [facility] Comment on above: Performed By: #### 6 9405-9, 86931-2f3, 27804-2 ####[facility], [address] [place], [place]. MCHC mass conc (RBC) 34.8 g/dL Normal 32.0-36.0 [facility] Comment on above: Performed By: #### 6 9405-9, 76009-2n0, 33510-6 ####[facility], [address] MCV 78.1 fL Low 80.0-97.0 [facility] Comment on above: Performed By: #### 6 9405-9, 89130-9h2, 12990-2 ####[facility], [address] [place], [place]. Monocytes 0.40 thou/mcL Normal 0.00-0.90 [facility] Comment on above: Performed By: #### 6 9405-9, 90513-4e8, 52340-3 ####[facility], [address]. Monocytes/100 leukocytes 5.1 % Normal 0.0-12.0 [facility] Comment on above: Performed By: #### 6 9405-9, 92326-7b0, 01764-7 ####[facility], [address]. Neutrophils 5.70 thou/mcL Normal 1.80-7.70 [facility] Comment on above: Performed By: #### 6 9405-9, 92116-4a0, 45844-4 ####[facility], [address]. Neutrophils/100 WBC Auto (Bld) 67.7 % Normal 40.0-70.0 [facility] Comment on above: Performed By: #### 6 9405-9, 47626-6c0, 83175-3 ####[facility], [address] [place], [place]. Platelet mean volume (PMV) 7.8 fL Normal 6.2-12.1 [facility] Comment on above: Performed By: #### 6 9405-9, 06146-7w9, 76187-5 ####[facility], [address] [place], [place]. Platelets 264 thou/mcL Normal 142-424 [facility] Comment on above: Performed By: #### 6 9405-9, 13831-0v4, 72813-9 ####[facility], [address] [place], [place]. WBC (Leukocytes) 8.5 thou/mcL Normal 4.6-10.2 [facility] Comment on above: Performed By: #### 6 9405-9, 21898-5n2, 92907-1 ####[facility], [address] [place], [place]. Depart Summaryon 11-15-2017 Depart Summary EMERGENCY DEPARTMENT DISCHARGE SUMMARYPATIENT NAME:MELISSA BYRNE MRN: COL)-[id number]: 22 Years SEX: Female PHONE:[id number]: 11/15/2017 4:07 PM : 1995 ATTENDING PHYSICIAN:Jamila Jama DO PCP: Verona Hilliard MD CHIEF COMPLAINT: Heavy vaginal bleeding with clots Allergies NKAProblems Active Mood disorder Diabetes DISCHARGE DIAGNOSIS: Menorrhagia DISCHARGE INSTRUCTIONS: Menorrhagia, Yzoy-jk-Jocx ED PHYSICIAN DOCUMENTATION: History of Present IllnessPatient [...] myself to the patient as the physician dam tender assistant. I informed the patient of attending physician [...] ? ? O2 Flow ? ? ?O2 Ustgpmbk78/09/18 16:00?-?-?- ?-/-?-? 100? -?Room air11/15/17 18:23?-?-?1 6?124/ [...] to be discharged home and follow-up with MEMBER CERTIFICATION MANAGER or PCP. I believe the abdominal pain is likely due to IUD removal 3 days ago.? I discussed this case my attending physician, Dr. Jama, who agrees with workup and disposition.? I have reviewed assessment and plan with patient who verbalizes understanding. Patient will be discharged home and follow-up with OB-PROFESSOR OF ENGINEERING or PCP?provider in 72 hours. Patient is stable and agreeable to plan for discharge home.]? DISCHARGE PLAN:Condition: [Stable]. ?Disposition: [Medically cleared],? Discharged ?Date/Time:?[11-15-2017 18:58 ]?to Home?Prescriptions: NONE ?[ ]Limitations: NONEPatient Education:? Menorrhagia, Kwcn-ws-Vphg? [ ]Follow up with:? Provider: ?Verona Hilliard MD?? ?Specialty:??Family Practice?? ?Address:??[address] [place] [id number] ? ?[phone] ? (1)?? ?Date:??1 to 2 days??? Comment: [...] Provider: Specialty: Address: Date: Verona Hilliard MD [address] [phone] (1) 1 to 2 days Comment: Call for an Appointment Provider: Specialty: Address: Date: Return to Emergency Department Follow-up as needed Comment: Reasons to return to the ED discussed with patient such as fever >101 degrees F, intractable nausea/vomiting, increasing pain, increased bleeding, lack of improvement of symptoms, new symptoms. Normal [facility] ED [facility] 11-15-2017 ED [place] [address] Emergency Department Discharge Instructions MELISSA BYRNE , Please provide this information to your Primary Care/Specialist Name : MELISSA BYRNE Current Date : 11/15/2017 19:17:32DOB : 1995 12:00 PM Primary Care Physician: Verona Hilliard MD Diagnosis : Menorrhagia Follow-Up Instructions:MELISSA BYRNE has been given these follow-up instructions: FOLLOW-UP APPOINTMENTS: Provider: Specialty: Address: Date: Verona Hilliard MD [address] [phone] (1) 1 to 2 days Comment: Call [...] Ordered Procedure(s) and Patient Education(s) : Menorrhagia, Lmzo-eh-Dwuc EMERGENCY SERVICES MEDICATION LISTLista de Medicaciones de los Servicios de Emergencia Name MELISSA BYRNE MRN [facility]-[id number] PLEASE READ THE FOLLOWING REGARDING YOUR MEDICATIONS [...] doses are changed, or new medications (including hnpt-vdz-czcqnki products) are added. If you have any [...] TAKE UNTIL YOU TALK TO YOUR DOCTORNone [place] [address] [facility] Discharge Instructions Name: MELISSA BYRNE Current Date: 11/15/2017 19:17:32 : 1995 12:00 PM Primary Physician: Verona Hilliard MD We would like to thank you for choosing [facility] for your emergency medical needs. We examined [...] health of those around you. Call the [employer] at 7-938-VIVL-USA or the [employer] at 8-428-VCO-9379 for more information.High blood pressure: Your screening blood pressure today was 124 mm Hg / . Hypertension (high blood pressure) is blood pressure over 120/80. People with hypertension should contact their primary care provider within 30 days to follow up. Check your patient portal for additional blood pressure information.Immunizatio ns:Immunization is a way to protect against deadly infections. Discuss this with your child's major league baseball player, or Public Health Department. Your family practice doctor can determine if you need pneumonia or flu vaccine. The [facility][1] Department can be reached at .Domestic Violence:If [...] suicide hotline, anytime day or night, at 9-666-850-IHBG. Pharmacy Information:Below is a list of 24 hour pharmacies that we are aware of. We suggest that you call the specific pharmacy for their hours before traveling to a location. Hours may vary on holidays. [facility] [address] [address] [phone] [address] [phone] [place] [address] [phone] [place] [address] [phone] [place] [address] [phone] [place] [address] [phone] [place] [address] [phone] Take all medications as directed. If you need prescription assistance, contact the following agencies:?? [facility] for Prescription Assistance at or www.MOGx.org?? [facility] Rx at or www.Nextworthrx.org?? www.[employer] is a site with many valuable coupons [...] Document Reviewed: 11/25/2013Francisca Interactive Patient Education ?2016 [employer]><><><><><><><><>< ><><><><><><><><><><><> <><><><> Patient Visit Summary Signature MELISSA BYRNE has been given the following list of patient education materials, prescriptions and follow-up instructions: CHAVEZ Cox [place] JUSTINE, have received the above patient education materials/instructions and have verbalized understanding: Date Time Patien t Signature Date Time Provid er Signature Normal [facility] ED Physician Noteson 018 ED Physician Notes Chief Complaint Heav y vaginal bleeding with clotsED Assigned Provider/Time Time Seen: Veronica GOODWIN, Diana / 11/15/2017 16:13History of Present Illness Patient [...] myself to the patient as the physician dam tender assistant. I informed the patient of attending physician [...] to be discharged home and follow-up with MEMBER CERTIFICATION MANAGER or PCP. I believe the abdominal pain is likely due to IUD removal 3 days ago. I discussed this case my attending physician, Dr. Jama, who agrees with workup and disposition. I have reviewed assessment and plan with patient who verbalizes understanding. Patient will be discharged home and follow-up with OB-PROFESSOR OF ENGINEERING or PCP provider in 72 hours. Patient is stable and agreeable to plan for discharge home.] DISCHARGE PLAN: Condition: [Stable]. Disposition: [Medically cleared], Discharged Date/Time: [11-15-2017 18:58 ] [place] Prescriptions:NONE [ ] Limitations: NONE Patient Education: Menorrhagia, Jpqj-ww-Uunl [ ] Follow up with: Provider: Verona Hilliard MD Specialty: Family Practice Address: [address] [place] [phone] (1) Date: 1 to 2 days Comment: [...] ORDERS PLACED: Laboratory POC Urine Test (CO) Priti WEBSTER Jamila November 15, 2017 16:30 Completed CBC with Differential Physician, Emergency November 15, 2017 16:49 Completed Basic Metabolic Panel Physician, Emergency November 15, 2017 16:49 Completed HCG Quantitative Physician, Emergency November 15, 2017 16:49 Completed GFRAF Physician, Emergency November 15, 2017 17:09 Completed GFRNAF Physician, Emergency November 15, 2017 17:09 Completed Urinalysis with Reflex Microscopic Jama DO, [facility] November 15, 2017 18:23 Completed U MICRO Jamazaida WEBSTER [facility] November 15, 2017 18:42 Completed Type and Screen Diana Mo November 15, 2017 16:49 Ordered Normal [facility] ED Physician Notes PDF Normal [facility] GFRaaon 11-15-2017 eGFR (black) mL/min/{1.73_m2} Normal [facility] Comment on above: Result Comment: The MDRD equation has not been validated for those over 70 years, women, patients with serious co-morbid conditions, or with extremes of bodysize, muscle mass of nutritional status. Performed By: #### 6 9405-9, 05776-9f7, 93981-4 ####[facility], [address] [place] [address]. GFRbbon 11-15-2017 eGFR (non-black) mL/min/{1.73_m2} Normal [facility] [place] [facility] Comment on above: Performed By: #### 6 9405-9, 52362-3e7, 20557-7 ####[facility], [address] [place], [place]. HCG Quantitativeon 8 HCG Qn m[IU]/mL Normal [facility] Comment on above: Result Comment: Preg Reference [...] immunoassay method. Performed By: #### 6 9405-9, 00944-8s3, 17532-5 ####[facility], [address] [place], [place]. Urinalysis Microscopicon Urine, bacteria in sediment RARE Abnormal NONE/HPF [facility] Comment on above: Performed By: #### 6 9405-9, 61937-2b9, 72064-4 ####[facility], [address] [place], [place]. Urine, erythrocytes in sediment by area 4126 /[HPF] High 0-5 [facility] Comment on above: Performed By: #### 6 9405-9, 00165-1q4, 38544-7 ####[facility], [address] [place], [place]. Urine, leukocytes in sedmiment 191 /[HPF] High 0-5 [facility] Comment on above: Performed By: #### 6 9405-9, 52085-2w2, 16485-7 ####[facility], [address] [place], [place]. Urine, mucus presence in sediment FEW Abnormal NONE/LPF [facility] Comment on above: Performed By: #### 6 9405-9, 86047-9z6, 17881-5 ####[facility], [address] [place]. Urine, squamous cells in sediment MODERATE Abnormal FEW/LPF [facility] Comment on above: Performed By: #### 6 9405-9, 18884-6z5, 00092-7 ####[facility], [address] [place]. Urinalysis with Microscopic Automaticon 11-15-2017 Bilirubin Urine Negative Normal NEGATIVE [facility] Comment on above: Performed By: #### 6 9405-9, 76272-9e2, 27909-3 ####[facility], [address] [place], [place] [address], [place], [place]. Nitrite Urine Negative Normal NEGATIVE [facility] Comment on above: Performed By: #### 6 9405-9, 53969-8y6, 96964-1 ####[facility], [address] [facility] [place] Urine, appearance TURBID Abnormal CLEAR [facility] Center Comment on above: Performed By: #### 6 9405-9, 91791-3c3, 22691-0 ####[facility], [address] [place], [place]. Urine, color YELLOW Normal YELLOW [facility] Comment on above: Performed By: #### 6 9405-9, 42393-2n8, 94112-5 ####[facility], [address], [place]. Urine, glucose presence 500MG/DL Abnormal NORMAL [facility] Comment on above: Performed By: #### 6 9405-9, 34078-4s2, 46477-4 ####[facility], [address], [place]. Urine, hemoglobin presence 300/UL Abnormal NEGATIVE [facility] Comment on above: Performed By: #### 6 9405-9, 26213-2r8, 49099-7 ####[facility], [address] [place], [place]. Urine, ketones presence 5MG/DL Abnormal NEGATIVE [facility] Comment on above: Performed By: #### 6 9405-9, 10039-8u0, 99772-7 ####[facility], [address] [place], [place]. Urine, leukocyte esterase presence 25/UL Abnormal NEGATIVE [facility] Comment on above: Performed By: #### 6 9405-9, 13232-9r6, 59271-4 ####[facility], [address] [place], [place]. Urine, pH 6.0 [pH] Normal 4.5-8.0 [facility] Comment on above: Performed By: #### 6 9405-9, 71202-9s9, 52364-7 ####[facility], [address] [place], [place]. Urine, protein 100 mg/dL Abnormal NEGATIVE [facility] Comment on above: Performed By: #### 6 9405-9, 86777-5a7, 35176-3 ####[facility], [address] [place], [place]. Urine, specific gravity 1.026 Normal 1.002-1.030 [facility] Comment on above: Performed By: #### 6 9405-9, 81818-8n6, 41843-5 ####[facility], [address]. Urobilinogen Urine NORMAL Normal NORMAL [facility] Comment on above: Performed By: #### 6 9405-9, 85042-1e6, 42382-4 ####[facility], [address], [place]. ED Physician Noteson 018 ED Physician Notes Chief Complaint nauseaED Assigned Provider/Time Time Seen: Poncho El / 10/09/2017 18:37History of Present Illness I have introduced myself as a Physician Reading Recovery Teacher and informed the patient of the supervising/collaborati [...] Laboratory POC Urinalysis Manual (CO) Priti WEBSTER [facility] October 09, 2017 18:34 Completed POC Urine Test (CO) Jama , [facility] October 09, 2017 18:34 Completed Urinalysis with Reflex Microscopic Reynaldo GOODWIN [facility] October 09, 2017 18:44 Completed BMP (Basic Metabolic Panel) Reynaldo GOODWIN [facility] October 09, 2017 18:44 Completed CBC with Differential Reynaldo GOODWIN [facility] October 09, 2017 18:44 Completed Lipase Reynaldo GOODWIN [facility] October 09, 2017 18:44 Completed Hepatic Function Panel Reynaldo GOODWIN [facility] October 09, 2017 18:44 Completed U MICRO Reynaldo GOODWIN [facility] October 09, 2017 19:28 Completed GFRAF Reynaldo GOODWIN [facility] October 09, 2017 19:32 Completed GFRNAF Reynaldo GOODWIN [facility] October 09, 2017 19:32 Completed Normal [facility] ED Physician Notes PDF Normal [facility] Basic Metabolic Panelon 05-0 Anion gap 12.0 mmol/L Normal 6.0-18.0 [facility] Comment on above: Result Comment: DEEDEE MELO NOTE:The calculated Anion Gap(AGAP) does not include Potassium. Performed By: #### 6 9405-9, 70423-3q5, 91181-4 ####[facility], [address] [place], [place]. Calcium 10.2 mg/dL Normal 8.9-10.3 [facility] Comment on above: Performed By: #### 6 9405-9, 45403-1m1, 18734-6 ####[facility], [address]. Chloride 102 mmol/L Normal 98-107 [facility] Comment on above: Performed By: #### 6 9405-9, 98595-9t6, 15074-4 ####[facility], [address], [place]. CO2 23 mmol/L Normal 22-32 [facility] Comment on above: Performed By: #### 6 9405-9, 89002-0z8, 74044-4 ####[facility], [address], [place]. Creatinine 0.84 mg/dL Normal 0.66-1.30 [facility] Comment on above: Performed By: #### 6 9405-9, 02923-7n2, 15932-6 ####[facility], [address]. Glucose mass conc 252 mg/dL High 70-110 [facility] Comment on above: Performed By: #### 6 9405-9, 69414-6e4, 56280-9 ####[facility], [address]. Potassium molar conc 3.6 mmol/L Normal 3.6-5.1 [facility] Comment on above: Performed By: #### 6 9405-9, 46306-9p5, 76073-7 ####[facility], [address]. Sodium 137 mmol/L Normal 136-145 [facility] Comment on above: Performed By: #### 6 9405-9, 62446-4g0, 51084-4 ####[facility], [address]. Urea nitrogen 15 mg/dL Normal 8-20 [facility] Comment on above: Performed By: #### 6 9405-9, 74490-8i9, 50344-6 ####[facility], [address]. CBC with Differentialon 05-0 Basophils Auto #/vol (Bld) 0.10 thou/mcL Normal 0.00-0.20 [facility] Comment on above: Performed By: #### 6 9405-9, 45417-5q0, 58242-6 ####[facility], [address] [place], [place]. Basophils Auto #/vol (Bld) 0.7 % Normal 0.0-2.0 [facility] Comment on above: Performed By: #### 6 9405-9, 48931-1m7, 68850-9 ####[facility], [address] [place], [place]. Eosinophils 0.20 thou/mcL Normal 0.00-0.70 [facility] Comment on above: Performed By: #### 6 9405-9, 48273-3k5, 44326-8 ####[facility], [address] [place], [place]. Eosinophils/100 leukocytes 1.8 % Normal 0.0-7.0 [facility] Comment on above: Performed By: #### 6 9405-9, 75370-1y5, 06408-3 ####[facility], [address] [place], [place]. Erythrocyte distribution width Auto Ratio (RBC) 15.0 % High 11.0-14.8 [facility] Comment on above: Performed By: #### 6 9405-9, 80064-2d9, 06508-9 ####[facility], [address] [place], [place]. Erythrocytes (RBC) 5.60 million/mcL High 3.80-5.10 [facility] Comment on above: Performed By: #### 6 9405-9, 82804-7r9, 46870-1 ####[facility], [address] [place], [place]. Hematocrit (HCT) 43.9 % Normal 35.0-45.0 [facility] Comment on above: Performed By: #### 6 9405-9, 37300-9t5, 11602-6 ####[facility], [address] [place], [place]. Hemoglobin mass conc (Bld) 14.8 g/dL Normal 12.0-16.0 [facility] Comment on above: Performed By: #### 6 9405-9, 38488-2x1, 19354-3 ####[facility], [address]. Lymphocytes 2.50 thou/mcL Normal 1.00-4.80 [facility] Comment on above: Performed By: #### 6 9405-9, 90210-6b6, 01335-7 ####[facility], [address]. Lymphocytes/100 leukocytes 29.2 % Normal 22.0-44.0 [facility] Comment on above: Performed By: #### 6 9405-9, 46834-3l3, 36821-5 ####[facility], [address], [place], [place]. MCH 26.4 Picograms Low 27.0-34.0 [facility] Comment on above: Performed By: #### 6 9405-9, 24612-8d9, 65772-4 ####[facility], [address] [place], [place]. MCHC mass conc (RBC) 33.6 g/dL Normal 32.0-36.0 [facility] Comment on above: Performed By: #### 6 9405-9, 59198-6g9, 68534-3 ####[facility], [address]. MCV 78.4 fL Low 80.0-97.0 [facility] Comment on above: Performed By: #### 6 9405-9, 57035-1o8, 24930-6 ####[facility], [address] [place], [place]. Monocytes 0.40 thou/mcL Normal 0.00-0.90 [facility] Comment on above: Performed By: #### 6 9405-9, 85928-9h4, 77801-8 ####[facility], [address] [place], [place]. Monocytes/100 leukocytes 4.1 % Normal 0.0-12.0 [facility] Comment on above: Performed By: #### 6 9405-9, 97480-1j2, 74973-1 ####[facility], [address] [place], [place]. Neutrophils 5.50 thou/mcL Normal 1.80-7.70 [facility] Comment on above: Performed By: #### 6 9405-9, 10500-5k7, 94387-5 ####[facility], [address] [place], [place]. Neutrophils/100 WBC Auto (Bld) 64.2 % Normal 40.0-70.0 [facility] Comment on above: Performed By: #### 6 9405-9, 17093-8w9, 82891-0 ####[facility], [address] [place], [place]. Platelet mean volume (PMV) 8.0 fL Normal 6.2-12.1 [facility] Comment on above: Performed By: #### 6 9405-9, 03382-4y8, 33159-2 ####[facility], [address] [place], [place]. Platelets 293 thou/mcL Normal 142-424 [facility] Comment on above: Performed By: #### 6 9405-9, 42066-3g4, 82392-8 ####[facility], [address]. WBC (Leukocytes) 8.5 thou/mcL Normal 4.6-10.2 [facility] Comment on above: Performed By: #### 6 9405-9, 22482-9m7, 28813-3 ####[facility], [address] [place] [address]. Depart Summaryon 10-09-2017 Depart Summary EMERGENCY DEPARTMENT DISCHARGE SUMMARYPATIENT NAME:MELISSA BYRNE : 22 Years SEX: Female PHONE:[phone]: 10/09/2017 6:00 PM : 1995 ATTENDING PHYSICIAN:Josie [...] Result(s): Date Order Results 10/09/2017 18:35 Specific [place] Urine POCT N 1.030 10/09/2017 18:35 pH Urine POCT N 5 10/09/2017 18:35 Urobilinogen Urine POCT N 0 mg/dL 10/09/2017 18:45 Appearance Urine A TURBID 10/09/2017 18:45 Specific [place] Urine H 1.032 10/09/2017 18:45 Glucose Urine [...] Address: Date: Verona Hilliard MD [facility] [address] [place] [address] [phone] (1) 1 to 2 days Normal [facility] ED Pat Rocio 10-09-2017 ED Pat [place] [address] Emergency Department Discharge Instructions MELISSA BYRNE , Please provide this information to your Primary Care/Specialist Name : MELISSA BYRNE Current Date : 10/09/2017 20:40:15DOB : 1995 12:00 PM Primary Care Physician: Verona Hilliard MD Diagnosis : Acute UTI; Epigastric pain Follow-Up Instructions:MELISSA BYRNE has been given these follow-up instructions: FOLLOW-UP APPOINTMENTS: Provider: Specialty: Address: Date: Verona Hilliard MD [address] [phone] (1) 1 to 2 days Laboratory Orders: [...] [facility] Name MELISSA BYRNE MRN (COL)-[id number] PLEASE READ THE FOLLOWING REGARDING YOUR MEDICATIONS [...] doses are changed, or new medications (including gyxo-vcs-wsucqab products) are added. If you have any [...] TAKE UNTIL YOU TALK TO YOUR DOCTORNone [place] [address] [facility] Discharge Instructions Name: MELISSA BYRNE Current Date: 10/09/2017 20:40:15 : 1995 12:00 PM Primary Physician: Verona Hilliard MD We would like to thank you for choosing [facility] for your emergency medical needs. We examined [...] health of those around you. Call the [place] [employer] at 7-606-MZTC-[place] or the [place] [employer] at 8-107-LTP-6909 for more information.High blood pressure: Your screening blood pressure today was 114 mm Hg / . Hypertension (high blood pressure) is blood pressure over 120/80. People with hypertension should contact their primary care provider within 30 days to follow up. Check your patient portal for additional blood pressure information.Immunizatio ns:Immunization is a way to protect against deadly infections. Discuss this with your child's major league baseball player, or Public Health Department. Your family practice doctor can determine if you need pneumonia or flu vaccine. The [facility][1] Department can be reached at .Domestic Violence:If [...] suicide hotline, anytime day or night, at 6-870-977-COGJ. Pharmacy Information:Below is a list of 24 hour pharmacies that we are aware of. We suggest that you call the specific pharmacy for their hours before traveling to a location. Hours may vary on holidays. [facility] [place] [address] [place] [address] [phone] [address] [phone] [address] [phone] [address] [phone] [place] [address] [phone] [place] [address] [phone] [place] [address] [phone] Take all medications as directed. If you need prescription assistance, contact the following agencies:?? [facility] for Prescription Assistance at or www.Aviasales.org?? [facility] Rx at or www.Nextworthrx.org?? [employer] is a site with many valuable coupons [...] alleviate any discomfort you are experiencing:???Only take hsjl-pxk-ewuudvp or prescription medicines as directed by your [...] Document Reviewed: 02/02/2014[employer] Interactive Patient Education ?2016 [employer].Obstetrics and GynecologyUrinary Tract InfectionUrinary tract infections (UTIs) [...] Released: 03/05/2006 Document Revised: 06/16/2015 Document Reviewed: 07/03/2012[employer]ban[employer]ier Interactive Patient Education ?2016 [employer]VIRUSES OR BACTERIA: WHAT'S GOT YOU SICK?Antibiotics [...] Signature Date Time Provid er Signature Normal [facility] GFRaaon 10-09-2017 eGFR (black) mL/min/{1.73_m2} Normal [facility] Comment on above: Result Comment: The MDRD equation has not been validated for those over 70 years, women, patients with serious co-morbid conditions, or with extremes of bodysize, muscle mass of nutritional status. Performed By: #### 6 9405-9, 11091-4e4, 13380-2 ####[facility], [address] [place] [address]. GFRbbon 10-09-2017 eGFR (non-black) mL/min/{1.73_m2} Normal [facility] Comment on above: Performed By: #### 6 9405-9, 18744-7k4, 94286-3 ####[facility], [address] [place], [place]. Hepatic Function Panelon Alanine aminotransferase (ALT) 45 Units/L Normal 14-63 [facility] Comment on above: Performed By: #### 6 9405-9, 30070-6n7, 48165-8 ####[facility], [address] [place], [place]. Albumin 4.6 g/dL Normal 3.5-4.8 [facility] Comment on above: Performed By: #### 6 9405-9, 84452-9x2, 87715-8 ####[facility], [address] [place], [place]. Alkaline phosphatase (ALP) 81 Units/L Normal 32-91 [facility] Comment on above: Performed By: #### 6 9405-9, 78565-2n5, 73301-3 ####[facility], [address] [place], [place]. Aspartate aminotransferase (AST) 23 Units/L Normal 15-41 [facility] Comment on above: Performed By: #### 6 9405-9, 45484-6d6, 09607-7 ####[facility], [address] [place], [place]. Bilirubin (direct) 0.0 mg/dL Low 0.1-0.5 [facility] Comment on above: Performed By: #### 6 9405-9, 77257-0t1, 81755-9 ####[facility], [address] [place], [place]. Bilirubin (total) 0.4 mg/dL Normal 0.3-1.2 [facility] Comment on above: Performed By: #### 6 9405-9, 02824-3n1, 56649-1 ####[facility], [address] [place], [place]. Bilirubin.indirect mass conc 0.4 mg/dL Normal 0.0-1.0 [facility] Comment on above: Performed By: #### 6 9405-9, 18047-2j2, 41421-4 ####[facility], [address] [place], [place]. Protein 7.9 g/dL Normal 6.1-7.9 [facility] Comment on above: Performed By: #### 6 9405-9, 30946-4d6, 88243-1 ####[facility], [address] Lipaseon 10-09-2017 Lipase 13 Units/L Low 22-51 [facility] Comment on above: Performed By: #### 6 9405-9, 77178-9v4, 83051-6 ####[facility], [address]. Urinalysis Microscopicon Urine, erythrocytes in sediment by area 5 /[HPF] Normal 0-5 [facility] Comment on above: Performed By: #### 6 9405-9, 77850-4o5, 49586-7 ####[facility], [address] [place]. Urine, leukocytes in sedmiment 6 /[HPF] High 0-5 [facility] Comment on above: Performed By: #### 6 9405-9, 83202-7s7, 22129-4 ####[facility], [address] [place], [place]. Urine, mucus presence in sediment RARE Abnormal NONE/LPF [facility] Comment on above: Performed By: #### 6 9405-9, 99500-3p5, 63724-6 ####[facility], [address] [place]. Urine, squamous cells in sediment MANY Abnormal FEW/LPF [facility] Comment on above: Performed By: #### 6 9405-9, 31283-1g2, 68666-5 ####[facility], [address]. Urinalysis with Microscopic Automaticon 10-09-2017 Bilirubin Urine Negative Normal NEGATIVE [facility] Comment on above: Performed By: #### 6 9405-9, 43776-1c9, 56009-7 ####[facility], [address] [facility] [place]. Nitrite Urine Negative Normal NEGATIVE [facility] Comment on above: Performed By: #### 6 9405-9, 97791-9v0, 71145-2 ####[facility], [address] [facility] [place]. Urine, appearance TURBID Abnormal CLEAR [facility] Comment on above: Performed By: #### 6 9405-9, 78406-4a3, 00615-8 ####[facility], [address] [facility] [place]. Urine, color PACHECO Normal YELLOW [facility] Comment on above: Performed By: #### 6 9405-9, 55341-5a9, 60208-8 ####[facility], [address] [place], [place]. Urine, glucose presence 150MG/DL Abnormal NORMAL [facility] Comment on above: Performed By: #### 6 9405-9, 86843-3e4, 33096-2 ####[facility], [address] [facility] [place]. Urine, hemoglobin presence 10/UL Abnormal NEGATIVE [facility] Comment on above: Performed By: #### 6 9405-9, 41211-7y6, 69843-2 ####[facility], [address] [facility] [address]. Urine, ketones presence 5MG/DL Abnormal NEGATIVE [facility] Comment on above: Performed By: #### 6 9405-9, 05862-3f9, 41952-3 ####[facility], [address] [place] [address]. Urine, leukocyte esterase presence 25/UL Abnormal NEGATIVE [facility] Comment on above: Performed By: #### 6 9405-9, 15834-4b6, 04772-6 ####[facility], [address] [place], [place]. Urine, pH 5.0 [pH] Normal 4.5-8.0 [facility] Comment on above: Performed By: #### 6 9405-9, 90640-8w6, 32937-1 ####[facility], [address] [place], [place]. Urine, protein 30 mg/dL Abnormal NEGATIVE [facility] Comment on above: Performed By: #### 6 9405-9, 13837-4r1, 16625-6 ####[facility], [address] [place] [address]. Urine, specific gravity 1.032 High 1.002-1.030 [facility] Comment on above: Performed By: #### 6 9405-9, 81360-4o8, 01737-6 ####[facility], [address] [place] [address]. Urobilinogen Urine NORMAL Normal NORMAL [facility] Comment on above: Performed By: #### 6 9405-9, 09236-5j1, 44999-9 ####[facility], [address] [place] [address]. ED Physician Noteson 018 ED Physician Notes Chief Complaint Abdominal pain/Vaginal bleedED Assigned Provider/Time Time Seen: Poncho El / 09/27/2017 20:20History of Present Illness I have reviewed the nurse's note. I introduced myself as the Physician Reading Recovery Teacher and informed the patient of the supervising physician who is available upon request, Dr. Huratdo Patient is a 22 years old female [...] today is wanting her. Patient has an MEMBER CERTIFICATION MANAGER physician who reside at [facility]. Patient is to look for a new one here in [place]. Patient denies any nausea or vomiting. No diarrhea. No urinary related symptoms. 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 No need for [...] Poncho El September 27, 2017 21:34 CompletedDone [facility] ED Physician Notes PDF Normal [facility] Depart Summaryon 09-28-2017 Depart Summary EMERGENCY DEPARTMENT DISCHARGE SUMMARYPATIENT NAME:MELISSA BYRNE MRN: [id number]: 22 Years SEX: Female PHONE:[phone]: 09/27/2017 7:06 PM : 1995 ATTENDING PHYSICIAN:Raphael Cabezas MD PCP: Verona Hilliard MD CHIEF COMPLAINT: Abdominal pain/Vaginal bleed Allergies NKAProblems Active Mood disorder Diabetes DISCHARGE DIAGNOSIS: Dysfunctional uterine bleeding; Pelvic pain DISCHARGE INSTRUCTIONS: Dysfunctional Uterine Bleeding; Pelvic Pain, Female ED PHYSICIAN DOCUMENTATION: History of Present IllnessI have reviewed the nurse's note. ? I introduced myself as the Physician Reading Recovery Teacher and informed the patient of the supervising [...] started today?is wanting her. Patient has an MEMBER CERTIFICATION MANAGER physician who reside at [facility]. Patient?is to look for a new one here in?[place]. Patient?denies any nausea or vomiting. No diarrhea. [...] Patient will be advised to follow-up with [facility] MEMBER CERTIFICATION MANAGER clinic for further evaluation.?No need for any [...] Result(s): Date Order Results 09/27/2017 19:38 Specific [place] Urine POCT N 1.020 09/27/2017 19:38 pH [...] adnexal mass. No ovarian torsion.IUD in the uterus.[facility] thanks you for the opportunity to care for your patient. Workstation ID: [id number] - [id number] FOLLOW UP:FOLLOW-UP APPOINTMENTS: Provider: Specialty: Address: Date: Verona Hilliard MD Family Practice [address] [place] [address] [phone] (4) Follow-up as needed Provider: Specialty: Address: Date: [facility] ([address] [address] (7) Follow-up as needed Comment: Follow-up with [facility] MEMBER CERTIFICATION MANAGER also be further evaluated. Call Friday and make an appointment. Normal [facility] ED Pat Eduon 09-28-2017 ED Pat [address] [address] Emergency Department Discharge Instructions MELISSA BYRNE , Please provide this information to your Primary Care/Specialist Name : MELISSA BYRNE Current Date : 09/27/2017 23:44:47DOB : 1995 12:00 PM Primary Care Physician: Verona Hilliard MD Diagnosis : Dysfunctional uterine bleeding; Pelvic pain Follow-Up Instructions:MELISSA BYRNE has been given these follow-up instructions: FOLLOW-UP APPOINTMENTS: Provider: Specialty: Address: Date: Verona Hilliard MD Family Practice [address] [place] [address] [phone] (8) Follow-up as needed Provider: Specialty: Address: Date: [facility] ([facility]) [address] [place] [phone] (5) Follow-up as needed Comment: Follow-up with [facility] MEMBER CERTIFICATION MANAGER also be further evaluated. Call Friday and [...] Servicios de Emergencia Name MELISSA BYRNE MRN ([facility])-[id number] PLEASE READ THE FOLLOWING REGARDING YOUR MEDICATIONS [...] doses are changed, or new medications (including odmd-meu-hwbmvyi products) are added. If you have any [...] TAKE UNTIL YOU TALK TO YOUR DOCTORNone [place] [address] [facility] Discharge Instructions Name: MELISSA BYRNE Current Date: 09/27/2017 23:44:47 : 1995 12:00 PM Primary Physician: Verona Hilliard MD We would like to thank you for choosing [facility] for your emergency medical needs. We examined [...] health of those around you. Call the [place] Lung [employer] at 6-420-JZJE-USA or the [place] [employer] at 8-906-ABE-2347 for more information.High blood pressure: Your screening blood pressure today was 118 mm Hg / . Hypertension (high blood pressure) is blood pressure over 120/80. People with hypertension should contact their primary care provider within 30 days to follow up. Check your patient portal for additional blood pressure information.Immunizatio ns:Immunization is a way to protect against deadly infections. Discuss this with your child's major league baseball player, or Public Health Department. Your family practice doctor can determine if you need pneumonia or flu vaccine. The [facility][1] Department can be reached at .Domestic Violence:If [...] suicide hotline, anytime day or night, at 9-059-863-QDIC. Pharmacy Information:Below is a list of 24 hour pharmacies that we are aware of. We suggest that you call the specific pharmacy for their hours before traveling to a location. Hours may vary on holidays. [facility] Pharmacy [place] [address] [phone] [address] [phone] [address] [phone] [place] [address] [phone] [place] [address] [phone], [place] [phone] [place] [address] [phone] Take all medications as directed. If you need prescription assistance, contact the following agencies:?? Partnership for Prescription Assistance at or www.pparx.org?? [place]' Best Rx at or www.Quarri Technologiesbestrx.org?? www.Fyusion.Smart Ecosystems is a site with many valuable coupons [...] or later than usual. They may be perfusionist, have blood clots or be heavier. You [...] change or switch medicines without consulting your caregiver.???watermaster heavy bleeding may result in iron deficiency. [...] Released: 05/23/2001 Document Revised: 08/17/2012 Document Reviewed: 08/21/2015Elsevier Interactive Patient Education ?2016 [employer].Pelvic Pain, FemaleFemale pelvic pain can be caused [...] vaginal discharge.???Blood tests. HOME CARE INSTRUCTIONS???Only take sand-urw-netlcdk or prescription medicines for pain, discomfort, or [...] Document Reviewed: 09/14/2012Francisca Interactive Patient Education ?2016 [employer].<><><><><><><><><>< ><><><><><><><><><><><> <><><><> Patient Visit Summary Signature MELISSA BYRNE has been given the following list of patient education materials, prescriptions and follow-up instructions: CHAVEZ Cox ALEXANDRIA JUSTINE, have received the above patient education materials/instructions and have verbalized understanding: Date Time Patien t Signature Date Time Provid er Signature Normal [facility] [place] Duplex Abd/Pelvis Retrope r Completeon 09-28-2017 [...] adnexal mass. No ovarian torsion.IUD in the uterus.[facility] thanks you for the opportunity to care for your patient. Workstation ID: [id number] - [id number] FINAL REPORT Dictated By: Hiro Newberry MD 09/27/2017 22:18Assigned Physician: Hiro Newberry MD and Electronically Signed By: Hiro Newberry MD 09/27/2017 22:21Transcribed by: TAMI 09/27/2017 22:18Technologist: SIMI Normal [facility] US Pelvis Non-OB Completeon 09-28-2017 US Pelvis [...] adnexal mass. No ovarian torsion.IUD in the uterus.[facility] thanks you for the opportunity to care for your patient. Workstation ID: [id number] - [id number] FINAL REPORT Dictated By: Hiro Newberry MD 09/27/2017 22:18Assigned Physician: Hiro Newberry MD JReviepablo and Electronically Signed By: Hiro Newberry MD 09/27/2017 22:21Transcribed by: TAMI 09/27/2017 22:18Technologist: SIMI Heredia [facility] US Transvaginalon 09-28-2017 US Transvaginal EXAMINATION TYPE: [...] adnexal mass. No ovarian torsion.IUD in the uterus.[facility] thanks you for the opportunity to care for your patient. Workstation ID: [id number] - [id number] FINAL REPORT Dictated By: Hiro Newberry MD 09/27/2017 22:18Assigned Physician: Hiro Newberry MD and Electronically Signed By: Hiro Newberry MD 09/27/2017 22:21Transcribed by: TAMI 09/27/2017 22:18Technologist: MDS Normal [facility] Basic Metabolic Panelon 09-07 Anion gap 11.0 mmol/L Normal 6.0-18.0 [facility] Comment on above: Result Comment: DEEDEE MELO NOTE:The calculated Anion Gap(AGAP) does not include Potassium. Performed By: #### 6 9405-9, 13472-4o0, 78708-9 ####[facility], [address], [place]. Calcium 9.9 mg/dL Normal 8.9-10.3 [facility] Comment on above: Performed By: #### 6 9405-9, 03790-8x4, 28181-1 ####[facility], [address], [place]. Chloride 101 mmol/L Normal 98-107 [facility] Comment on above: Performed By: #### 6 9405-9, 77291-7s2, 14239-0 ####[facility]ON [facility], [address] CO2 22 mmol/L Normal 22-32 [facility] Comment on above: Performed By: #### 6 9405-9, 32776-7g9, 19513-9 ####[facility], [address] [place], [place]. Creatinine 0.56 mg/dL Low 0.66-1.30 [facility] Comment on above: Performed By: #### 6 9405-9, 86299-0n8, 90161-9 ####[facility], [address] [place]. Glucose mass conc 252 mg/dL High 70-110 [facility] Comment on above: Performed By: #### 6 9405-9, 84081-0f5, 82159-9 ####[facility], [address]. Potassium molar conc 3.9 mmol/L Normal 3.6-5.1 [facility] Comment on above: Performed By: #### 6 9405-9, 55446-7z5, 25466-9 ####[facility], [address] [place]. Sodium 134 mmol/L Low 136-145 [facility] Comment on above: Performed By: #### 6 9405-9, 48114-2n4, 70740-5 ####[facility], [address]. Urea nitrogen 12 mg/dL Normal 8-20 [facility] Comment on above: Performed By: #### 6 9405-9, 78569-9b7, 24653-5 ####[facility], [address], [place] CBCon 09-18-2017 Erythrocyte distribution width Auto Ratio (RBC) 14.3 % Normal 11.0-14.8 [facility] Comment on above: Performed By: #### 2 4317-0 ####[facility], [address], [place]. Erythrocytes (RBC) 5.98 million/mcL High 3.80-5.10 [facility] Comment on above: Performed By: #### 2 4317-0 ####[facility], [address] [place], [place]. Hematocrit (HCT) 45.7 % High 35.0-45.0 [facility] Comment on above: Performed By: #### 2 7-0 ####[facility], [address], [place]. Hemoglobin mass conc (Bld) 15.3 g/dL Normal 12.0-16.0 [facility] Comment on above: Performed By: #### 2 7-0 ####[facility], [facility] [address], [place]. MCH 25.6 Picograms Low 27.0-34.0 [facility] Comment on above: Performed By: #### 2 7-0 ####[facility], [facility] [address], [place]. MCHC mass conc (RBC) 33.5 g/dL Normal 32.0-36.0 [facility] Comment on above: Performed By: #### 2 7-0 ####[facility], [address], [place]. MCV 76.5 fL Low 80.0-97.0 [facility] Comment on above: Performed By: #### 2 7-0 ####[facility], [address], [place]. Platelet mean volume (PMV) 8.0 fL Normal 6.2-12.1 [facility] Comment on above: Performed By: #### 2 4317-0 ####[facility], [address], [place]. Platelets 330 thou/mcL Normal 142-424 [facility] Comment on above: Performed By: #### 2 4317-0 ####[facility], [address], [place]. WBC (Leukocytes) 9.9 thou/mcL Normal 4.6-10.2 [facility] Comment on above: Performed By: #### 2 4317-0 ####[facility], [address] [place], [place]. Depart Summaryon 09-18-2017 Depart Summary EMERGENCY DEPARTMENT DISCHARGE SUMMARYPATIENT NAME:MELISSA BYRNE MRN: [id number])-[id number]: 22 Years SEX: Female PHONE:[phone]: 09/18/2017 2:10 PM : 1995 ATTENDING PHYSICIAN:Josie [...] Result(s): Date Order Results 09/18/2017 15:25 Specific [place] Urine POCT N 1.020 09/18/2017 15:25 pH [...] fluid. This may simply be physiologic in nature.[facility] thanks you for the opportunity to care for your patient. Workstation ID: [id number] - [id number] FOLLOW UP:FOLLOW-UP APPOINTMENTS: Provider: Specialty: Address: Date: Verona Hilliard MD Family Practice [address] [place] [address] [phone] (1) 1 to 2 days Normal [facility] [place] [address] [facility] Discharge Instructions MELISSA BYRNE , Please provide this information to your Primary Care/Specialist Name : MELISSA BYRNE Current Date : 09/18/2017 17:27:36DOB : 1995 12:00 PM Primary Care Physician: Verona Hilliard MD Diagnosis : Hyperglycemia; Pelvic pain Follow-Up Instructions:MELISSA BYRNE has been given these follow-up instructions: FOLLOW-UP APPOINTMENTS: Provider: Specialty: Address: Date: Verona Hilliard MD Family Practice [address] [place] [address] [phone] (1) 1 to 2 days Laboratory Orders: [...] Servicios de Emergencia Name MELISSA BYRNE MRN [facility]-[id number] PLEASE READ THE FOLLOWING REGARDING YOUR MEDICATIONS [...] doses are changed, or new medications (including nyjl-qnj-tbmzjmp products) are added. If you have any [...] TAKE UNTIL YOU TALK TO YOUR DOCTORNone [place] [id number] Emergency Department Discharge Instructions Name: MELISSA BYRNE Current Date: 09/18/2017 17:27:36 : 1995 12:00 PM Primary Physician: Verona Hilliard MD We would like to thank you for choosing [facility] for your emergency medical needs. We examined [...] health of those around you. Call the [place] Lung Association at 4-097-SKKJ-USA or the [place] Cancer Society at 5-396-SVT-6027 for more information.High blood pressure: Your screening blood pressure today was 132 mm Hg / . Hypertension (high blood pressure) is blood pressure over 120/80. People with hypertension should contact their primary care provider within 30 days to follow up. Check your patient portal for additional blood pressure information.Immunizatio ns:Immunization is a way to protect against deadly infections. Discuss this with your child's major league baseball player, or Public Health Department. Your family practice doctor can determine if you need pneumonia or flu vaccine. [facility][1] Department can be reached at .Domestic Violence:If [...] suicide hotline, anytime day or night, at 9-913-985-ENBN. Pharmacy Information:Below is a list of 24 hour pharmacies that we are aware of. We suggest that you call the specific pharmacy for their hours before traveling to a location. Hours may vary on holidays. [facility] Pharmacy [facility] [address] [place] [address] [phone] [place] [address] [phone] [place] [address] [phone] [address] [phone] [place] [address] [phone] [address] [phone] [place] [address] [phone] Take all medications as directed. If you need prescription assistance, contact the following agencies:?? Partnership for Prescription Assistance at or www.MOGx.org?? [facility] Best Rx at or www.Emidastrx.org?? www.Copper Mobile[employer]Way[employer].Smart Ecosystems is a site with many valuable coupons [...] alleviate any discomfort you are experiencing:???Only take upot-org-stqsqvu or prescription medicines as directed by your [...] Document Reviewed: 02/02/2014Francisca Interactive Patient Education ?2016 SinDelantal.Obstetrics and GynecologyPelvic Pain, FemaleFemale pelvic pain can [...] vaginal discharge.???Blood tests. HOME CARE INSTRUCTIONS???Only take rzjm-cxq-wtizahq or prescription medicines for pain, discomfort, or [...] Document Reviewed: 09/14/2012Francisca Interactive Patient Education ?2016 SinDelantal.Preventive MedicineBlood Glucose Monitoring, AdultMonitoring your blood glucose [...] Document Reviewed: 10/18/2013Francisca Interactive Patient Education ?2016 [employer].<><><><><><><><><>< ><><><><><><><><><>< ><><><><><> Patient Visit Summary Signature MELISSA BYRNE has been given the following list of patient education materials, prescriptions and follow-up instructions: CHAVEZ Cox ALEXANDRIA JUSTINE, have received the above patient education materials/instructions and have verbalized understanding: Date Time Patien t Signature Date Time Provid er Signature Normal [facility] ED Physician Noteson 018 ED Physician Notes [...] Patient is a 26 years old left Portuguese male with no known significant past medical [...] and patient was advised to follow-up with PCP/MEMBER CERTIFICATION MANAGER. Patient will be prescribed naproxen for pain [...] This may simply be physiologic in nature. [facility] thanks you for the opportunity to care for your patient. Workstation ID: [id number] - [id number] ORDERS PLACED: Laboratory Urinalysis Manual POCT (CO) [place] September 18, 2017 15:07 Completed Urine Test POCT (CO) [place] September 18, 2017 15:08 Completed CBC Reynaldo GOODWIN [facility] Lisa September 18, 2017 15:28 Completed BMP (Basic Metabolic Panel) [place] September 18, 2017 15:29 Completed GFRAF [place] September 18, 2017 16:01 Completed GFRNAF [place] September 18, 2017 16:01 Completed Xray [place] Duplex Abd/Pelvis Retroper Complete [place] September 18, 2017 15:[address] / MRI / Ultrasound US Transvaginal [place] September 18, 2017 15:58 Completed Ultrasound Pelvis Non-OB Complete [place] September 18, 2017 15:29 Completed Normal [facility] ED Physician Notes PDF Normal [facility] GFRaaon 04-12-2018 eGFR (black) mL/min/{1.73_m2} Normal [facility] Comment on above: Result Comment: The MDRD equation has not been validated for those over 70 years, women, patients with serious co-morbid conditions, or with extremes of bodysize, muscle mass of nutritional status. Performed By: #### 6 9405-9, 93283-2x7, 55157-3 ####[facility], [address], [place]. GFRbbon 09-18-2017 eGFR (non-black) mL/min/{1.73_m2} Normal [facility] Comment on above: Performed By: #### 6 9405-9, 16749-5v8, 08153-1 ####[facility], [address], [place]. [place] Duplex Abd/Pelvis Retrope r Completeon [...] fluid. This may simply be physiologic in nature.[facility] thanks you for the opportunity to care for your patient. Workstation ID: [id number] - [id number] FINAL REPORT Dictated By: Miguel Espinosa MD 09/18/2017 16:58Assigned Physician: Miguel Espinosa MD CReviewed and Electronically Signed By: Miguel Espinosa MD 09/18/2017 17:01Transcribed by: [facility] 09/18/2017 16:58Technologist: LARA Normal [facility] US Pelvis Non-OB Completeon 09-18-2017 US Pelvis [...] fluid. This may simply be physiologic in nature.[facility] thanks you for the opportunity to care for your patient. Workstation ID: [id number] - [id number] FINAL REPORT Dictated By: Miguel Espinosa MD 09/18/2017 16:58Assigned Physician: Miguel Espinosa MD CReviewed and Electronically Signed By: Miguel Espinosa MD 09/18/2017 17:01Transcribed by: TAMI 09/18/2017 16:58Technologist: LARA Heredia [facility] US Transvaginalon 09-18-2017 US Transvaginal TRANSABDOMINAL AND [...] fluid. This may simply be physiologic in nature.[facility] thanks you for the opportunity to care for your patient. Workstation ID: [id number] - [id number] FINAL REPORT Dictated By: Miguel Espinosa MD 09/18/2017 16:58Assigned Physician: Miguel Espinosa MD CReviewed and Electronically Signed By: Miguel Espinosa MD 09/18/2017 17:01Transcribed by: TAMI 09/18/2017 16:58Technologist: LARA Heredia [facility] Vital Signs Date Time Vital Sign Value Performing Clinician Facility 01-20-2025 10:16-0400 Body mass index (BMI) [Ratio] 37.5 kg/m2 Kelsy Radha DO Work Phone: [facility] 01-20-2025 10:16-0400 Body weight 94.2 kg Kelsy Radha DO Work Phone: [facility] 01-20-2025 10:16-0400 Diastolic blood pressure 78 mm[Hg] Kelsy Radha DO Work Phone: [facility] 01-20-2025 10:16-0400 Heart rate 91 /min Kelsy Radha DO Work Phone: [facility] 01-20-2025 10:16-0400 Systolic blood pressure 100 mm[Hg] Kelsy Radha DO Work Phone: [facility] 01-19-2025 13:15-0400 Body mass index (BMI) [Ratio] 37.01 kg/m2 Whit Schulte MD Work Phone: [facility] 01-19-2025 13:15-0400 Body weight 92.99 kg Whit Schulte MD Work Phone: [facility] 01-19-2025 13:15-0400 Diastolic blood pressure 70 mm[Hg] Whit Schulte MD Work Phone: [facility] 01-19-2025 13:15-0400 Systolic blood pressure 126 mm[Hg] Whit Schulte MD Work Phone: [facility] 12-21-2024 13:46-0400 Body mass index (BMI) [Ratio] 34.85 kg/m2 William Gramajo MD Work Phone: [facility] 12-21-2024 13:46-0400 Body weight 87.54 kg William Gramajo MD Work Phone: [facility] 12-21-2024 13:46-0400 Diastolic blood pressure 70 mm[Hg] William Garmajo MD Work Phone: [facility] 12-21-2024 13:46-0400 Systolic blood pressure 118 mm[Hg] William Gramajo MD Work Phone: [facility] 12-16-2024 20:40-0400 Diastolic blood pressure 70 mm[Hg] Dr. Jamari Byrne MD Work Phone: [facility] 12-16-2024 20:40-0400 Heart rate 75 /min Dr. Jamari Byrne MD Work Phone: [facility] 12-16-2024 20:40-0400 Systolic blood pressure 115 mm[Hg] Dr. Jamari Byrne MD Work Phone: [facility] 12-16-2024 20:12-0400 Body height 157.[address] Jamari Byrne MD Work Phone: [facility] 12-16-2024 20:12-0400 Body mass index (BMI) [Ratio] 79.3 kg/m2 Dr. Jamari Byrne MD Work Phone: [facility] 12-16-2024 20:12-0400 Body weight 196.[address] Jamari Byrne MD Work Phone: [facility] 12-16-2024 20:00-0400 Body temperature 97.9 [degF] Dr. Jamari Byrne MD Work Phone: [facility] 12-16-2024 20:00-0400 Respiratory rate 18 /min Dr. Jamari Byrne MD Work Phone: [facility] 12-16-2024 20:00-0400 SaO2% (BldA) [Mass fraction] 98 % Dr. Jamari Byrne MD Work Phone: [facility] 12-09-2024 07:37-0400 Diastolic blood pressure 80 mm[Hg] Dr. Jamari Byrne MD Work Phone: [facility] 12-09-2024 07:37-0400 Heart rate 84 /min Dr. Jamari Byrne MD Work Phone: [facility] 12-09-2024 07:37-0400 Systolic blood pressure 136 mm[Hg] Dr. Jamari Byrne MD Work Phone: [facility] 12-09-2024 07:35-0400 Body temperature 96.4 [degF] Dr. Jamari Byrne MD Work Phone: [facility] 12-09-2024 07:35-0400 Respiratory rate 16 /min Dr. Jamari Byrne MD Work Phone: [facility] 12-09-2024 07:35-0400 SaO2% (BldA) [Mass fraction] 98 % Dr. Jamari Byrne MD Work Phone: [facility] 12-08-2024 20:31-0400 Inhaled oxygen flow rate 98 L/min Dr. Jamari Byrne MD Work Phone: [facility] 12-07-2024 11:10-0400 Body height 157.[address] Jamari Byrne MD Work Phone: [facility] 12-07-2024 11:10-0400 Body mass index (BMI) [Ratio] 38.7 kg/m2 Dr. Jamari Byrne MD Work Phone: [facility] 12-07-2024 11:10-0400 Body weight [address] Jamari Byrne MD Work Phone: [facility] 12-06-2024 09:46-0400 Body mass index (BMI) [Ratio] 38.1 kg/m2 Ronaldo Rubio MD Work Phone: [facility] 12-06-2024 09:46-0400 Body weight 95.71 kg Ronaldo Rubio MD Work Phone: [facility] 12-06-2024 09:46-0400 Diastolic blood pressure 70 mm[Hg] Ronaldo Rubio MD Work Phone: [facility] 12-06-2024 09:46-0400 Systolic blood pressure 116 mm[Hg] Ronaldo Rubio MD Work Phone: [facility] 12-02-2024 10:04-0400 Body mass index (BMI) [Ratio] 38.28 kg/m2 Keshav Loving MD Work Phone: [facility] 12-02-2024 10:04-0400 Body weight 96.16 kg Keshav Loving MD Work Phone: [facility] 12-02-2024 10:04-0400 Diastolic blood pressure 72 mm[Hg] Keshav Loving MD Work Phone: [facility] 12-02-2024 10:04-0400 Systolic blood pressure 104 mm[Hg] Keshav Loving MD Work Phone: [facility] 11-30-2024 15:35-0400 Body mass index (BMI) [Ratio] 38.1 kg/m2 [facility] 11-30-2024 15:35-0400 Body weight 95.71 kg [facility] 11-30-2024 15:35-0400 Diastolic blood pressure 64 mm[Hg] [facility] 11-30-2024 15:35-0400 Systolic blood pressure 128 mm[Hg] [facility] 11-25-2024 08:37-0400 Body mass index (BMI) [Ratio] 37.56 kg/m2 William Gramajo MD Work Phone: [facility] 11-25-2024 08:37-0400 Body weight 94.35 kg William Gramajo MD Work Phone: [facility] 11-25-2024 08:37-0400 Diastolic blood pressure 79 mm[Hg] William Gramajo MD Work Phone: [facility] 11-25-2024 08:37-0400 Systolic blood pressure 123 mm[Hg] William Gramajo MD Work Phone: [facility] 11-22-2024 09:17-0400 Diastolic blood pressure 70 mm[Hg] [facility] 11-22-2024 09:17-0400 Systolic blood pressure 126 mm[Hg] [facility] 11-18-2024 14:25-0400 Body mass index (BMI) [Ratio] 37.95 kg/m2 Keshav Loving MD Work Phone: [facility] 11-18-2024 14:25-0400 Body weight 95.35 kg Keshav Loving MD Work Phone: [facility] 11-18-2024 14:25-0400 Diastolic blood pressure 80 mm[Hg] Keshav Loving MD Work Phone: [facility] 11-18-2024 14:25-0400 Systolic blood pressure 119 mm[Hg] Keshav Loving MD Work Phone: [facility] 11-15-2024 16:13-0400 Diastolic blood pressure 75 mm[Hg] Dr. Jamari Byrne MD Work Phone: [facility] 11-15-2024 16:13-0400 Heart rate 96 /min Dr. Jamari Byrne MD Work Phone: [facility] 11-15-2024 16:13-0400 Systolic blood pressure 118 mm[Hg] Dr. Jamari Byrne MD Work Phone: [facility] 11-15-2024 16:12-0400 Body temperature 97.5 [degF] Dr. Jamari Byrne MD Work Phone: [facility] 11-15-2024 16:12-0400 Respiratory rate 16 /min Dr. Jamari Byrne MD Work Phone: [facility] 11-15-2024 16:12-0400 SaO2% (BldA) [Mass fraction] 98 % Dr. Jamari Byrne MD Work Phone: [facility] 11-15-2024 16:01-0400 Body height 157.[address] Jamari Byrne MD Work Phone: [facility] 11-15-2024 16:01-0400 Body mass index (BMI) [Ratio] 37.8 kg/m2 Dr. Jamari Byrne MD Work Phone: [facility] 11-15-2024 16:01-0400 Body weight 93.[address] Jamari Byrne MD Work Phone: [facility] 11-15-2024 08:29-0400 Body mass index (BMI) [Ratio] 37.66 kg/m2 Keshav Loving MD Work Phone: [facility] 11-15-2024 08:29-0400 Body weight 94.62 kg Keshav Loving MD Work Phone: [facility] 11-15-2024 08:29-0400 Diastolic blood pressure 68 mm[Hg] Keshav Loving MD Work Phone: [facility] 11-15-2024 08:29-0400 Systolic blood pressure 120 mm[Hg] Keshav Loving MD Work Phone: [facility] 11-11-2024 09:12-0400 Body mass index (BMI) [Ratio] 37.01 kg/m2 Krys Kulkarni MD Work Phone: [facility] 11-11-2024 09:12-0400 Body weight 92.99 kg Krys Kulkarni MD Work Phone: [facility] 11-11-2024 09:12-0400 Diastolic blood pressure 70 mm[Hg] Krys Kulkarni MD Work Phone: [facility] Comment on above: true bp 116/79; 109/75; 109/75; 108/74; 101/67; 108/74 11-11-2024 09:12-0400 Systolic blood pressure 128 mm[Hg] Krys Kulkarni MD Work Phone: [facility] Comment on above: true bp 116/79; 109/75; 109/75; 108/74; 101/67; 108/74 11-08-2024 09:29-0400 Diastolic blood pressure 64 mm[Hg] [facility] 11-08-2024 09:29-0400 Systolic blood pressure 126 mm[Hg] [facility] 11-05-2024 10:18-0400 Body mass index (BMI) [Ratio] 37.12 kg/m2 Krys Kulkarni MD Work Phone: [facility] 11-05-2024 10:18-0400 Body weight 93.26 kg Krys Kulkarni MD Work Phone: [facility] 11-05-2024 10:18-0400 Diastolic blood pressure 77 mm[Hg] Krys Kulkarni MD Work Phone: [facility] 11-05-2024 10:18-0400 Systolic blood pressure 114 mm[Hg] Krys Kulkarni MD Work Phone: [facility] 11-04-2024 09:43-0400 Body mass index (BMI) [Ratio] 37.34 kg/m2 Kelsy Radha DO Work Phone: [facility] 11-04-2024 09:43-0400 Body weight 93.8 kg Kelsy Radha DO Work Phone: [facility] 11-04-2024 09:43-0400 Diastolic blood pressure 68 mm[Hg] Kelsy Radha DO Work Phone: [facility] 11-04-2024 09:43-0400 Heart rate 102 /min Kelsy Radha DO Work Phone: [facility] 11-04-2024 09:43-0400 Systolic blood pressure 104 mm[Hg] Kelsy Radha DO Work Phone: [facility] 11-02-2024 09:36-0400 Body mass index (BMI) [Ratio] 37.41 kg/m2 [facility] 11-02-2024 09:36-0400 Body weight 93.98 kg [facility] 11-02-2024 09:36-0400 Diastolic blood pressure 60 mm[Hg] [facility] 11-02-2024 09:36-0400 Systolic blood pressure 112 mm[Hg] [employer] [facility] 10-25-2024 09:21-0400 Body mass index (BMI) [Ratio] 36.47 kg/m2 Piper Julian MD Work Phone: [facility] 10-25-2024 09:21-0400 Body weight 91.63 kg Piper Julian MD Work Phone: [facility] 10-25-2024 09:21-0400 Diastolic blood pressure 71 mm[Hg] Piper Julian MD Work Phone: [facility] 10-25-2024 09:21-0400 Systolic blood pressure 114 mm[Hg] Piper Julian MD Work Phone: [facility] 10-18-2024 13:38-0400 Body mass index (BMI) [Ratio] 36.11 kg/m2 Whit Schulte MD Work Phone: [facility] 10-18-2024 13:38-0400 Body weight 90.72 kg Whit Schulte MD Work Phone: [facility] 10-18-2024 13:38-0400 Diastolic blood pressure 60 mm[Hg] Whit Schulte MD Work Phone: [facility] 10-18-2024 13:38-0400 Systolic blood pressure 110 mm[Hg] Whit Schulte MD Work Phone: [facility] 10-16-2024 17:56-0400 Body temperature 98.1 [degF] Dr. Jamari Byrne MD Work Phone: [facility] 10-16-2024 17:56-0400 Diastolic blood pressure 71 mm[Hg] Dr. Jamari Byrne MD Work Phone: [facility] 10-16-2024 17:56-0400 Heart rate 96 /min Dr. Jamari Byrne MD Work Phone: [facility] 10-16-2024 17:56-0400 Respiratory rate 14 /min Dr. Jamari Byrne MD Work Phone: [facility] 10-16-2024 17:56-0400 SaO2% (BldA) [Mass fraction] 99 % Dr. Jamari Byrne MD Work Phone: [facility] 10-16-2024 17:56-0400 Systolic blood pressure 127 mm[Hg] Dr. Jamari Byrne MD Work Phone: [facility] 10-16-2024 17:53-0400 Body height 157.[address] Jamari Byrne MD Work Phone: [facility] 10-16-2024 17:53-0400 Body mass index (BMI) [Ratio] 36.8 kg/m2 Dr. Jamari Byrne MD Work Phone: [facility] 10-16-2024 17:53-0400 Body weight 91.[address] Jamari Byrne MD Work Phone: [facility] 10-04-2024 11:38-0400 Body mass index (BMI) [Ratio] 35.39 kg/m2 Piper Julian MD Work Phone: [facility] 10-04-2024 11:38-0400 Body weight 88.91 kg Piper Julian MD Work Phone: [facility] 10-04-2024 11:38-0400 Diastolic blood pressure 68 mm[Hg] Piper Julian MD Work Phone: [facility] 10-04-2024 11:38-0400 Systolic blood pressure 114 mm[Hg] Piper Julian MD Work Phone: [facility] 09-24-2024 15:07-0400 Body height 157.[address] Jamari Byrne MD Work Phone: [facility] 09-24-2024 15:07-0400 Body mass index (BMI) [Ratio] 35.5 kg/m2 Dr. Jamari Byrne MD Work Phone: [facility] 09-24-2024 15:07-0400 Body weight 88.[address] Jamari Byrne MD Work Phone: [facility] 09-24-2024 14:07-0400 Body temperature 98.1 [degF] Dr. Jamari Byrne MD Work Phone: [facility] 09-24-2024 14:07-0400 Respiratory rate 16 /min Dr. Jamari Byrne MD Work Phone: [facility] 09-24-2024 14:06-0400 Diastolic blood pressure 70 mm[Hg] Dr. Jamari Byrne MD Work Phone: [facility] 09-24-2024 14:06-0400 Heart rate 100 /min Dr. Jamari Byrne MD Work Phone: [facility] 09-24-2024 14:06-0400 Systolic blood pressure 122 mm[Hg] Dr. Jamari Byrne MD Work Phone: [facility] 09-24-2024 08:47-0400 Body mass index (BMI) [Ratio] 34.85 kg/m2 Leonie Waldron APRN.CNM Work Phone: [facility] 09-24-2024 08:47-0400 Body weight 87.54 kg Leonie Waldron TELEPHONE TRIAGE NURSE.CNM Work Phone: [facility] 09-24-2024 08:47-0400 Diastolic blood pressure 64 mm[Hg] Leonie Waldron TELEPHONE TRIAGE NURSE.CNM Work Phone: [facility] 09-24-2024 08:47-0400 Systolic blood pressure 110 mm[Hg] Leonie Waldron APRN.CNM Work Phone: [facility] 09-20-2024 13:22-0400 Body mass index (BMI) [Ratio] 34.59 kg/m2 Kelsy Ruffst DO Work Phone: [facility] 09-20-2024 13:22-0400 Body weight 86.9 kg Kelsy Radha DO Work Phone: [facility] 09-20-2024 13:22-0400 Diastolic blood pressure 71 mm[Hg] Kelsy Radha DO Work Phone: [facility] 09-20-2024 13:[id number] Heart rate 104 /min Kelsy Radha DO Work Phone: [facility] 09-20-2024 13:22-0400 Systolic blood pressure 116 mm[Hg] Kelsy Radha DO Work Phone: [facility] 09-07-2024 10:42-0400 Body mass index (BMI) [Ratio] 34.31 kg/m2 Ronaldo Rubio MD Work Phone: [facility] 09-07-2024 10:42-0400 Body weight 86.18 kg Ronaldo Rubio MD Work Phone: [facility] 09-07-2024 10:42-0400 Diastolic blood pressure 60 mm[Hg] Ronaldo Rubio MD Work Phone: [facility] 09-07-2024 10:42-0400 Systolic blood pressure 120 mm[Hg] Ronaldo Rubio MD Work Phone: [facility] 09-06-2024 10:02-0400 Body mass index (BMI) [Ratio] 34.61 kg/m2 Jamari Byrne MD Work Phone: [facility] 09-06-2024 10:02-0400 Body weight 85.82 kg Jamari Byrne MD Work Phone: [facility] 09-06-2024 10:02-0400 Diastolic blood pressure 68 mm[Hg] Jamari Byrne MD Work Phone: [facility] 09-06-2024 10:02-0400 Heart rate 98 /min Jamari Byrne MD Work Phone: [facility] 09-06-2024 10:02-0400 SaO2% (BldA) [Mass fraction] 98 % Jamari Byrne MD Work Phone: [facility] 09-06-2024 10:02-0400 Systolic blood pressure 120 mm[Hg] Jamari Byrne MD Work Phone: [facility] 09-02-2024 11:57-0400 Diastolic blood pressure 60 mm[Hg] [facility] 09-02-2024 11:57-0400 Systolic blood pressure 112 mm[Hg] [facility] 08-10-2024 08:05-0500 Body mass index (BMI) [Ratio] 33.26 kg/m2 [facility] 08-10-2024 08:05-0500 Body weight 83.55 kg [facility] 08-10-2024 08:05-0500 Diastolic blood pressure 70 mm[Hg] [facility] 08-10-2024 08:05-0500 Systolic blood pressure 112 mm[Hg] [facility] 07-26-2024 13:40-0500 Body mass index (BMI) [Ratio] 33.22 kg/m2 Kelsy Radha DO Work Phone: [facility] 07-26-2024 13:40-0500 Body weight 83.45 kg Kelsy Radha DO Work Phone: [facility] 07-26-2024 13:40-0500 Diastolic blood pressure 58 mm[Hg] Kelsy Radha DO Work Phone: [facility] 07-26-2024 13:40-0500 Heart rate 94 /min Kelsy Radha DO Work Phone: [facility] 07-26-2024 13:40-0500 Systolic blood pressure 127 mm[Hg] Kelsy Radha DO Work Phone: [facility] 07-23-2024 11:27-0500 Body mass index (BMI) [Ratio] 32.5 kg/m2 William Gramajo MD Work Phone: [facility] 07-23-2024 11:27-0500 Body weight 81.65 kg William Gramajo MD Work Phone: [facility] 07-23-2024 11:27-0500 Diastolic blood pressure 60 mm[Hg] William Gramajo MD Work Phone: [facility] 07-23-2024 11:27-0500 Systolic blood pressure 108 mm[Hg] William Gramajo MD Work Phone: [facility] 07-13-2024 09:51-0500 Body mass index (BMI) [Ratio] 32.21 kg/m2 William Gramajo MD Work Phone: [facility] 07-13-2024 09:51-0500 Body weight 80.92 kg William Gramajo MD Work Phone: [facility] 07-13-2024 09:51-0500 Diastolic blood pressure 60 mm[Hg] William Gramajo MD Work Phone: [facility] 07-13-2024 09:51-0500 Systolic blood pressure 110 mm[Hg] William Gramajo MD Work Phone: [facility] 07-01-2024 21:50-0500 Body temperature 98.71 [degF] Sixto Myers MD Work Phone: [facility] 07-01-2024 21:00-0500 Diastolic blood pressure 81 mm[Hg] Sixto Myers MD Work Phone: [facility] 07-01-2024 21:00-0500 Heart rate 110 /min Sixto Myers MD Work Phone: [facility] 07-01-2024 21:00-0500 Respiratory rate 18 /min Sixto Myers MD Work Phone: [facility] 07-01-2024 21:00-0500 SaO2% (BldA) [Mass fraction] 93 % Sixto Myers MD Work Phone: [facility] 07-01-2024 21:00-0500 Systolic blood pressure 123 mm[Hg] Sixto Myers MD Work Phone: [facility] 07-01-2024 19:43-0500 Body height 157.5 cm Sixto Myers MD Work Phone: [facility] 07-01-2024 19:43-0500 Body mass index (BMI) [Ratio] 32.56 kg/m2 Sixto Myers MD Work Phone: [facility] 07-01-2024 19:43-0500 Body weight 80.74 kg Sixto Myers MD Work Phone: [facility] 06-15-2024 14:25-0500 Body mass index (BMI) [Ratio] 32.17 kg/m2 Pooja Latham MD Work Phone: [facility] 06-15-2024 14:25-0500 Body weight 80.83 kg Pooja Latham MD Work Phone: [facility] 06-15-2024 14:25-0500 Diastolic blood pressure 58 mm[Hg] Pooja Latham MD Work Phone: [facility] 06-15-2024 14:25-0500 Systolic blood pressure 100 mm[Hg] Pooja Latham MD Work Phone: [facility] 06-07-2024 14:07-0500 Body mass index (BMI) [Ratio] 31.68 kg/m2 Kelsy Radha DO Work Phone: [facility] 06-07-2024 14:07-0500 Body weight 79.6 kg Kelsy Radha DO Work Phone: [facility] 06-07-2024 14:07-0500 Diastolic blood pressure 64 mm[Hg] Kelsy Radha DO Work Phone: [facility] 06-07-2024 14:07-0500 Heart rate 85 /min Kelsy Radha DO Work Phone: [facility] 06-07-2024 14:07-0500 Systolic blood pressure 104 mm[Hg] Kelsy Radha DO Work Phone: [facility] 05-26-2024 09:57-0500 Body mass index (BMI) [Ratio] 31.24 kg/m2 Krys Kulkarni MD Work Phone: [facility] 05-26-2024 09:57-0500 Body weight 78.47 kg Krys Kulkarni MD Work Phone: [facility] 05-26-2024 09:57-0500 Diastolic blood pressure 76 mm[Hg] Krys Kulkarni MD Work Phone: [facility] 05-26-2024 09:57-0500 Systolic blood pressure 116 mm[Hg] Krys Kulkarni MD Work Phone: [facility] 05-21-2024 19:12-0500 Body height 157.5 cm Reza Dyer DO Work Phone: [facility] 05-21-2024 19:12-0500 Body mass index (BMI) [Ratio] 31.28 kg/m2 Reza Lemderrick DO Work Phone: [facility] 05-21-2024 19:12-0500 Body temperature 97.7 [degF] Reza Mark DO Work Phone: [facility] 05-21-2024 19:12-0500 Body weight 77.56 kg Reza Dyer DO Work Phone: [facility] 05-21-2024 19:12-0500 Diastolic blood pressure 68 mm[Hg] Reza Mark DO Work Phone: [facility] 05-21-2024 19:12-0500 Heart rate 91 /min Reza Mark DO Work Phone: [facility] 05-21-2024 19:12-0500 Respiratory rate 18 /min Reza Mark DO Work Phone: [facility] 05-21-2024 19:12-0500 SaO2% (BldA) [Mass fraction] 100 % Reza Lemasters DO Work Phone: [facility] 05-21-2024 19:12-0500 Systolic blood pressure 115 mm[Hg] Reza Mark DO Work Phone: [facility] 05-07-2024 09:29-0500 Body height 158.5 cm Zayda Haury TELEPHONE TRIAGE NURSE.[employer] Work Phone: [facility] 05-07-2024 09:29-0500 Body mass index (BMI) [Ratio] 31.02 kg/m2 Zayda Erwinjorgito TELEPHONE TRIAGE NURSE.[employer] Work Phone: [facility] 05-07-2024 09:29-0500 Body weight 77.93 kg Zayda Erwinjorgito TELEPHONE TRIAGE NURSE.[employer] Work Phone: [facility] 05-07-2024 09:29-0500 Diastolic blood pressure 60 mm[Hg] Zayda Erwinjorgito TELEPHONE TRIAGE NURSE.[employer] Work Phone: [facility] 05-07-2024 09:29-0500 Systolic blood pressure 120 mm[Hg] Zayda Erwinjorgito TELEPHONE TRIAGE NURSE.[employer] Work Phone: [facility] 05-04-2024 14:37-0500 Body mass index (BMI) [Ratio] 31.93 kg/m2 Jamari Byrne MD Work Phone: [facility] 05-04-2024 14:37-0500 Body weight 76.66 kg Jamari Byrne MD Work Phone: [facility] 05-04-2024 14:37-0500 Diastolic blood pressure 76 mm[Hg] Jamari Byrne MD Work Phone: [facility] 05-04-2024 14:37-0500 Heart rate 95 /min Jamari Byrne MD Work Phone: [facility] 05-04-2024 14:37-0500 SaO2% (BldA) [Mass fraction] 98 % Jamari Byrne MD Work Phone: [facility] 05-04-2024 14:37-0500 Systolic blood pressure 118 mm[Hg] Jamari Byrne MD Work Phone: [facility] 05-03-2024 14:13-0500 Body mass index (BMI) [Ratio] 30.91 kg/m2 Kelsy Guillermo DO Work Phone: [facility] 05-03-2024 14:13-0500 Body weight 77.9 kg Kelsy Radha DO Work Phone: [facility] 05-03-2024 14:13-0500 Diastolic blood pressure 67 mm[Hg] Kelsy Radha DO Work Phone: [facility] 05-03-2024 14:13-0500 Heart rate 94 /min Kelsy Radha DO Work Phone: [facility] 05-03-2024 14:13-0500 Systolic blood pressure 101 mm[Hg] Kelsy Radha DO Work Phone: [facility] 04-28-2024 08:34-0500 Body height 154.9 cm Joanie Hurtado TELEPHONE TRIAGE NURSE-[employer] HELPER [employer]AT Work Phone: [facility] 04-28-2024 08:34-0500 Body mass index (BMI) [Ratio] 32.06 kg/m2 Joanie Hurtado TELEPHONE TRIAGE NURSE-[employer] Work Phone: [facility] 04-28-2024 08:34-0500 Body weight 76.97 kg Joanie Hurtado TELEPHONE TRIAGE NURSE-[employer] Work Phone: [facility] 04-28-2024 08:34-0500 Diastolic blood pressure 82 mm[Hg] Joanie Hurtado TELEPHONE TRIAGE NURSE-[employer] Work Phone: [facility] 04-28-2024 08:34-0500 Heart rate 104 /min Joanie Hurtado TELEPHONE TRIAGE NURSE-[employer] Work Phone: [facility] 04-28-2024 08:34-0500 SaO2% (BldA) [Mass fraction] 97 % Joanie Hurtado TELEPHONE TRIAGE NURSE-[employer] Work Phone: [facility] 04-28-2024 08:34-0500 Systolic blood pressure 140 mm[Hg] Joanie Hurtado TELEPHONE TRIAGE NURSE-[employer] HEL[employer]AT Work Phone: [facility] 04-18-2024 21:51-0500 Diastolic blood pressure 93 mm[Hg] Jamari Byrne MD Work Phone: [facility] 04-18-2024 21:51-0500 Heart rate 104 /min Jamari Byrne MD Work Phone: [facility] 04-18-2024 21:51-0500 Respiratory rate 18 /min Jamari Byrne MD Work Phone: [facility] 04-18-2024 21:51-0500 SaO2% (BldA) [Mass fraction] 98 % Jamari Byrne MD Work Phone: [facility] 04-18-2024 21:51-0500 Systolic blood pressure 133 mm[Hg] Jamari Byrne MD Work Phone: [facility] 04-18-2024 18:48-0500 Body height 154.9 cm Jamari Byrne MD Work Phone: [facility] 04-18-2024 18:48-0500 Body mass index (BMI) [Ratio] 32.88 kg/m2 Jamari Byrne MD Work Phone: [facility] 04-18-2024 18:48-0500 Body temperature 98.29 [degF] Jamari Byrne MD Work Phone: [facility] 04-18-2024 18:48-0500 Body weight 78.93 kg Jamari Byrne MD Work Phone: [facility] 01-23-2024 16:00-0400 Body mass index (BMI) [Ratio] 30.45 kg/m2 Jamari Byrne MD Work Phone: [facility] 01-23-2024 16:00-0400 Body weight 75.52 kg Jamari Byrne MD Work Phone: [facility] 01-23-2024 16:00-0400 Diastolic blood pressure 70 mm[Hg] Jamari Byrne MD Work Phone: [facility] 01-23-2024 16:00-0400 Heart rate 98 /min Jamari Byrne MD Work Phone: [facility] 01-23-2024 16:00-0400 SaO2% (BldA) [Mass fraction] 98 % Jamari Byrne MD Work Phone: [facility] 01-23-2024 16:00-0400 Systolic blood pressure 110 mm[Hg] Jamari Byrne MD Work Phone: [facility] 12-25-2023 16:05-0400 Body height 157.5 cm Jamari Byrne MD Work Phone: [facility] 12-25-2023 16:05-0400 Body mass index (BMI) [Ratio] 31.18 kg/m2 Jamari Byrne MD Work Phone: [facility] 12-25-2023 16:05-0400 Body weight 77.34 kg Jamari Byrne MD Work Phone: [facility] 12-25-2023 16:05-0400 Diastolic blood pressure 70 mm[Hg] Jamari Byrne MD Work Phone: [facility] 12-25-2023 16:05-0400 Heart rate 87 /min Jamari Byrne MD Work Phone: [facility] 12-25-2023 16:05-0400 SaO2% (BldA) [Mass fraction] 97 % Jamari Byrne MD Work Phone: [facility] Comment on above: RA 12-25-2023 16:05-0400 Systolic blood pressure 112 mm[Hg] Jamari Byrne MD Work Phone: [facility] 09-15-2023 10:19-0400 Body mass index (BMI) [Ratio] 34.46 kg/m2 Jamari Byrne MD Work Phone: [facility] 09-15-2023 10:19-0400 Body temperature 98.1 [degF] Jamari Byrne MD Work Phone: [facility] 09-15-2023 10:19-0400 Body weight 86.68 kg Jamari Byrne MD Work Phone: [facility] 09-15-2023 10:19-0400 Diastolic blood pressure 80 mm[Hg] Jamari Byrne MD Work Phone: [facility] 09-15-2023 10:19-0400 Heart rate 110 /min Jamari Byrne MD Work Phone: [facility] 09-15-2023 10:19-0400 SaO2% (BldA) [Mass fraction] 100 % Jamari Byrne MD Work Phone: [facility] 09-15-2023 10:19-0400 Systolic blood pressure 124 mm[Hg] Jamari Byrne MD Work Phone: [facility] 08-19-2023 10:08-0400 Body temperature 98.1 [degF] Krislyn Aberegg PA Work Phone: [facility] 08-19-2023 10:08-0400 Body weight 89 kg Krislyn Aberegg PA Work Phone: [facility] 08-19-2023 10:08-0400 Diastolic blood pressure 80 mm[Hg] Krislyn Aberegg PA Work Phone: [facility] 08-19-2023 10:08-0400 Heart rate 100 /min Krislyn Aberegg PA Work Phone: [facility] 08-19-2023 10:08-0400 Respiratory rate 20 /min Krislyn Aberegg PA Work Phone: [facility] 08-19-2023 10:08-0400 SaO2% (BldA) [Mass fraction] 97 % Krislyn Aberegg PA Work Phone: [facility] 08-19-2023 10:08-0400 Systolic blood pressure 110 mm[Hg] Krislyn Aberegg PA Work Phone: [facility] 07-10-2023 10:27-0500 Body mass index (BMI) [Ratio] 34.07 kg/m2 Jamari Byrne MD Work Phone: [facility] 07-10-2023 10:27-0500 Body temperature 97.81 [degF] Jamari yBrne MD Work Phone: [facility] 07-10-2023 10:27-0500 Body weight 85.68 kg Jamari Byrne MD Work Phone: [facility] 07-10-2023 10:27-0500 Diastolic blood pressure 78 mm[Hg] Jamari Byrne MD Work Phone: [facility] 07-10-2023 10:27-0500 Heart rate 95 /min Jamari Byrne MD Work Phone: [facility] 07-10-2023 10:27-0500 SaO2% (BldA) [Mass fraction] 100 % Jamari Byrne MD Work Phone: [facility] 07-10-2023 10:27-0500 Systolic blood pressure 130 mm[Hg] Jamari Byrne MD Work Phone: [facility] 05-09-2023 11:11-0500 Body mass index (BMI) [Ratio] 35.07 kg/m2 Jamari Byrne MD Work Phone: [facility] 05-09-2023 11:11-0500 Body temperature 97.7 [degF] Jamari Byrne MD Work Phone: [facility] 05-09-2023 11:11-0500 Body weight 88.22 kg Jamari Byrne MD Work Phone: [facility] 05-09-2023 11:11-0500 Diastolic blood pressure 82 mm[Hg] Jamari Byrne MD Work Phone: [facility] 05-09-2023 11:11-0500 Heart rate 93 /min Jamari Byrne MD Work Phone: [facility] 05-09-2023 11:11-0500 SaO2% (BldA) [Mass fraction] 98 % Jamari Byrne MD Work Phone: 9(164)[phone] [place] [address] 05-09-2023 11:11-0500 Systolic blood pressure 118 mm[Hg] Jamari Byrne MD Work Phone: [facility] 03-17-2023 11:08-0400 Body height 158.6 cm Jamari Byrne MD Work Phone: [facility] 03-17-2023 11:08-0400 Body mass index (BMI) [Ratio] 35.85 kg/m2 Jamari Byrne MD Work Phone: 3(652)[phone] [place] [address] 03-17-2023 11:08-0400 Body weight 90.17 kg Jamari Byrne MD Work Phone: 6(235)009-228664 [place] [address] 03-17-2023 11:08-0400 Diastolic blood pressure 80 mm[Hg] Jamari Byrne MD Work Phone: 5(421)123-047764 [place] [address] 03-17-2023 11:08-0400 Heart rate 111 /min Jamari Byrne MD Work Phone: 9(740)[phone] [place] [address] 03-17-2023 11:08-0400 Systolic blood pressure 110 mm[Hg] Jamari Byrne MD Work Phone: [facility] 12-13-2022 13:31-0400 Body height 158.6 cm Jamari Byrne MD Work Phone: [facility] 12-13-2022 13:31-0400 Body mass index (BMI) [Ratio] 36.77 kg/m2 Jamari Byrne MD Work Phone: [facility] 12-13-2022 13:31-0400 Body weight 92.49 kg Jamari Byrne MD Work Phone: [facility] 12-13-2022 13:31-0400 Diastolic blood pressure 80 mm[Hg] Jamari Byrne MD Work Phone: [facility] 12-13-2022 13:31-0400 Heart rate 104 /min Jamari Byrne MD Work Phone: [facility] 12-13-2022 13:31-0400 SaO2% (BldA) [Mass fraction] 97 % Jamari Byrne MD Work Phone: [facility] 12-13-2022 13:31-0400 Systolic blood pressure 118 mm[Hg] Jamari Byrne MD Work Phone: [facility] 08-17-2022 18:56-0500 Body height 160 cm Lazara Deepack DO Work Phone: [facility] 08-17-2022 18:56-0500 Body mass index (BMI) [Ratio] 34.19 kg/m2 Lazara Lilliosick DO Work Phone: [facility] 08-17-2022 18:56-0500 Body temperature 97.7 [degF] Lazara Lilliosick DO Work Phone: [facility] 08-17-2022 18:56-0500 Body weight 87.54 kg Lazara Lilliosick DO Work Phone: [facility] 08-17-2022 18:56-0500 Diastolic blood pressure 86 mm[Hg] Lazara Lilliosick DO Work Phone: [facility] 08-17-2022 18:56-0500 Heart rate 96 /min Lazara Reederosick DO Work Phone: [facility] 08-17-2022 18:56-0500 Respiratory rate 16 /min Lazara Deepack DO Work Phone: [facility] 08-17-2022 18:56-0500 SaO2% (BldA) [Mass fraction] 97 % Lazara Lilliosick DO Work Phone: [facility] 08-17-2022 18:56-0500 Systolic blood pressure 126 mm[Hg] Lazara Lilliosick DO Work Phone: [facility] 05-24-2022 10:15-0500 Body height 157.48 cm Jamari Byrne Work Phone: [facility] Work Phone: 05-24-2022 10:15-0500 Body mass index (BMI) [Ratio] 32.92 kg/m2 Jamari L Chavez Work Phone: [facility] Work Phone: 05-24-2022 10:15-0500 Body surface area Derived from formula 1.83 m2 Jamari L Chavez Work Phone: [facility] Work Phone: 05-24-2022 10:15-0500 Body weight 81.64 kg Jamari L Chavez Work Phone: [facility] Work Phone: 05-24-2022 10:15-0500 Diastolic blood pressure 82 mm[Hg] Jamari L Chavez Work Phone: [facility] Work Phone: 05-24-2022 10:15-0500 Heart rate 94 /min Jamari L Chavez Work Phone: [facility] Work Phone: 05-24-2022 10:15-0500 Systolic blood pressure 100 mm[Hg] Jamari L Chavez Work Phone: [facility] Work Phone: 01-04-2022 13:47-0400 Body height 157.48 cm Jamari L Chavez Work Phone: [facility] Work Phone: 01-04-2022 13:47-0400 Body mass index (BMI) [Ratio] 30.91 kg/m2 Jamari L Chavez Work Phone: [facility] Work Phone: 01-04-2022 13:47-0400 Body surface area Derived from formula 1.78 m2 Jamari L Chavez Work Phone: [facility] Work Phone: 01-04-2022 13:47-0400 Body weight 76.65 kg Jamari L Chavez Work Phone: [facility] Work Phone: 01-04-2022 13:47-0400 Diastolic blood pressure 78 mm[Hg] Jamari L Chavez Work Phone: [facility] Work Phone: 01-04-2022 13:47-0400 Heart rate 80 /min Jamari L Chavez Work Phone: [facility] Work Phone: 01-04-2022 13:47-0400 Systolic blood pressure 108 mm[Hg] Jamari L Chavez Work Phone: [facility] Work Phone: 12-25-2021 08:36-0400 Body height 157.48 cm Jamari L Chavez Work Phone: [place] [address] [address] Work Phone: 12-25-2021 08:36-0400 Body mass index (BMI) [Ratio] 30.36 kg/m2 Jamari L Chavez Work Phone: [place] [address] [address] Work Phone: 12-25-2021 08:36-0400 Body surface area Derived from formula 1.77 m2 Jamari L Chavez Work Phone: [place] [address] [address] Work Phone: 12-25-2021 08:36-0400 Body weight 75.3 kg Jamari L Chavez Work Phone: [place] [address] [address] Work Phone: 12-25-2021 08:36-0400 Diastolic blood pressure 76 mm[Hg] Jamari L Chavez Work Phone: [place] [address] [address] Work Phone: 12-25-2021 08:36-0400 Systolic blood pressure 116 mm[Hg] Jamari L Chavez Work Phone: [place] [address] [address] Work Phone: 12-17-2021 09:02-0400 Body height 157.48 cm Jamari L Chavez Work Phone: [place] [address] [address] Work Phone: 12-17-2021 09:02-0400 Body mass index (BMI) [Ratio] 30.44 kg/m2 Jamari L Chavez Work Phone: [place] [address] [address] Work Phone: 12-17-2021 09:02-0400 Body surface area Derived from formula 1.77 m2 Jamari L Chavze Work Phone: [place] [address] [address] Work Phone: 12-17-2021 09:02-0400 Body weight 75.5 kg Jamari L Chavez Work Phone: [address] Work Phone: 12-17-2021 09:02-0400 Diastolic blood pressure 76 mm[Hg] Jamari L Chavez Work Phone: [place] [address] [address] Work Phone: 12-17-2021 09:02-0400 Systolic blood pressure 112 mm[Hg] Jamari L Chavez Work Phone: [address] Work Phone: 11-26-2021 09:02-0400 Body height 157.48 cm Jamari L Chavez Work Phone: [place] [address] [address] Work Phone: 11-26-2021 09:02-0400 Body mass index (BMI) [Ratio] 31.09 kg/m2 Jamari L Chavez Work Phone: [place] [address] [address] Work Phone: 11-26-2021 09:02-0400 Body surface area Derived from formula 1.78 m2 Jamari L Chavez Work Phone: [address] Work Phone: 11-26-2021 09:02-0400 Body weight 77.11 kg Jamari L Chavez Work Phone: [address] Work Phone: 11-26-2021 09:02-0400 Diastolic blood pressure 82 mm[Hg] Jamari L Chavez Work Phone: [address] Work Phone: 11-26-2021 09:02-0400 Systolic blood pressure 118 mm[Hg] Jamari L Chavez Work Phone: [address] Work Phone: 11-12-2021 10:17-0400 Body height 159.5 cm Jamari L Chavez Work Phone: [facility] Work Phone: 11-12-2021 10:17-0400 Body mass index (BMI) [Ratio] 30.95 kg/m2 Jamari L Chavez Work Phone: [facility] Work Phone: 11-12-2021 10:17-0400 Body surface area Derived from formula 1.82 m2 Jamari L Chavez Work Phone: [facility] Work Phone: 11-12-2021 10:17-0400 Body weight 78.74 kg Jamari L Chavez Work Phone: [facility] Work Phone: 11-12-2021 10:17-0400 Diastolic blood pressure 70 mm[Hg] Jamari L Chavez Work Phone: [facility] Work Phone: 11-12-2021 10:17-0400 Heart rate 95 /min Jamari L Chavez Work Phone: [facility] Work Phone: 11-12-2021 10:17-0400 Systolic blood pressure 104 mm[Hg] Jamari L Chavez Work Phone: [facility] Work Phone: 01-04-2021 10:07-0400 Body height 159.99 cm Rich L Oberhauser Work Phone: [facility] Work Phone: 01-04-2021 10:07-0400 Body mass index (BMI) [Ratio] 32.96 kg/m2 Rich L Oberhauser Work Phone: [facility] Work Phone: 01-04-2021 10:07-0400 Body surface area Derived from formula 1.87 m2 Rich L Oberhauser Work Phone: [facility] Work Phone: 01-04-2021 10:07-0400 Body temperature 97.9 [degF] Rich L Oberhauser Work Phone: [facility] Work Phone: 01-04-2021 10:07-0400 Body weight 84.37 kg Rich L Oberhauser Work Phone: [facility] Work Phone: 01-04-2021 10:07-0400 Diastolic blood pressure 79 mm[Hg] Rich L Oberhauser Work Phone: [facility] Work Phone: 01-04-2021 10:07-0400 Heart rate 100 /min Rich L Oberhauser Work Phone: [facility] Work Phone: 01-04-2021 10:07-0400 Systolic blood pressure 125 mm[Hg] Rich L Oberhauser Work Phone: [facility] Work Phone: 11-02-2020 15:58-0400 Body height 159.99 cm Rich L Oberhauser Work Phone: [facility] Work Phone: 11-02-2020 15:58-0400 Body mass index (BMI) [Ratio] 32.96 kg/m2 Rich L Oberhauser Work Phone: [facility] Work Phone: 11-02-2020 15:58-0400 Body surface area Derived from formula 1.87 m2 Rich L Oberhauser Work Phone: [facility] Work Phone: 11-02-2020 15:58-0400 Body temperature 97.8 [degF] Rich L Oberhauser Work Phone: [facility] Work Phone: 11-02-2020 15:58-0400 Body weight 84.37 kg Rich L Oberhauser Work Phone: [facility] Work Phone: 11-02-2020 15:58-0400 Diastolic blood pressure 77 mm[Hg] Rich L Oberhauser Work Phone: [facility] Work Phone: 11-02-2020 15:58-0400 Heart rate 106 /min Rich L Oberhauser Work Phone: [facility] Work Phone: 11-02-2020 15:58-0400 Systolic blood pressure 120 mm[Hg] Rich L Oberhauser Work Phone: [facility] Work Phone: 10-24-2020 04:00-0400 Diastolic blood pressure 76 mm[Hg] Rich Ng Other Phone: [facility] 10-24-2020 04:00-0400 Heart rate 96 /min Rich Ng Other Phone: [facility] 10-24-2020 04:00-0400 Respiratory rate 18 /min Rich Ng Other Phone: [facility] 10-24-2020 04:00-0400 SaO2% (BldA) [Mass fraction] 95 % Rich Ng Other Phone: [facility] 10-24-2020 04:00-0400 Systolic blood pressure 115 mm[Hg] Rich Ng Other Phone: [facility] 12-08-2019 08:09-0400 BMI (Body Mass Index) 29.23 kg/m2 [facility] 12-08-2019 08:09-0400 Body weight 74.84 kg [facility] 12-08-2019 08:09-0400 BP Diastolic 82 mm[Hg] [facility] 12-08-2019 08:09-0400 BP Systolic 128 mm[Hg] [facility] 12-08-2019 08:09-0400 Height 160 cm [facility] 12-08-2019 08:09-0400 Pulse (Heart Rate) 103 /min [facility] 12-08-2019 08:09-0400 Pulse Oximetry 97 % [facility] 12-08-2019 08:09-0400 Respiratory Rate 16 /min [facility] 09-29-2019 17:47-0400 BMI (Body Mass Index) 28.18 kg/m2 Rich Ng [facility] Work Phone: 09-29-2019 17:47-0400 Body Temperature 98.5 [degF] Rich Ng [facility] Work Phone: 09-29-2019 17:47-0400 Body weight 72.12 kg Rich Obdavid [facility] Work Phone: 09-29-2019 17:47-0400 BP Diastolic 93 mm[Hg] Rich Oberlaloer [facility] Work Phone: 09-29-2019 17:47-0400 BP Systolic 136 mm[Hg] Rich Oberbilly [facility] Work Phone: 09-29-2019 17:47-0400 BSA (Body Surface Area) 1.75 m2 Rich Ng [facility] Work Phone: 09-29-2019 17:47-0400 Height 159.99 cm Rich Ng [facility] Work Phone: 09-29-2019 17:47-0400 Pulse (Heart Rate) 101 /min Rich Ng [facility] Work Phone: 09-27-2019 16:07-0400 BMI (Body Mass Index) 28.17 kg/m2 iRch Obdavid [facility] Work Phone: 09-27-2019 16:07-0400 Body weight 72.12 kg Rich Ng [facility] Work Phone: 09-27-2019 16:07-0400 BP Diastolic 78 mm[Hg] Rich Oberbilly [facility] Work Phone: 09-27-2019 16:07-0400 BP Systolic 128 mm[Hg] Rich Oberbilly [facility] Work Phone: 09-27-2019 16:07-0400 BSA (Body Surface Area) 1.75 m2 Rich Ng [facility] Work Phone: 09-27-2019 16:07-0400 Height 160 cm Rich Ng [facility] Work Phone: 05-19-2019 11:48-0500 BMI (Body Mass Index) 29.8 kg/m2 [facility] [address] Work Phone: 05-19-2019 11:48-0500 Body weight 76.3 kg [facility] [address] Work Phone: 05-19-2019 11:48-0500 BP Diastolic 70 mm[Hg] Juno [facility] [address] Work Phone: 05-19-2019 11:48-0500 BP Systolic 110 mm[Hg] Juno [facility] [address] Work Phone: 05-19-2019 11:48-0500 BSA (Body Surface Area) 1.8 m2 [facility] [address] Work Phone: 05-19-2019 11:48-0500 Height 160.02 cm [facility] [address] Work Phone: 05-13-2019 16:36-0500 BMI (Body Mass Index) 24.88 kg/m2 [facility] [address] Work Phone: 05-13-2019 16:36-0500 Body weight 63.7 kg [facility] [address] Work Phone: 05-13-2019 16:36-0500 BP Diastolic 68 mm[Hg] [facility] [address] Work Phone: 05-13-2019 16:36-0500 BP Systolic 100 mm[Hg] Juno Blackburn [facility] [address] Work Phone: 05-13-2019 16:36-0500 BSA (Body Surface Area) 1.66 m2 [facility] [address] Work Phone: 12-05-2019 16:36-0500 Height 160.02 cm [facility] [employer] Work Phone: 03-21-2019 22:15-0400 BMI (Body Mass Index) 27.63 kg/m2 [facility] 03-21-2019 22:15-0400 Body weight 70.76 kg [facility] 03-21-2019 22:15-0400 Height 160 cm [facility] 03-21-2019 22:13-0400 Body Temperature 98.91 [degF] [facility] 03-21-2019 22:13-0400 BP Diastolic 77 mm[Hg] [facility] 03-21-2019 22:13-0400 BP Systolic 114 mm[Hg] [facility] 03-21-2019 22:13-0400 Pulse (Heart Rate) 84 /min [facility] 03-21-2019 22:13-0400 Pulse Oximetry 98 % [facility] 03-21-2019 22:13-0400 Respiratory Rate 18 /min [facility] 03-11-2019 10:55-0400 Body Temperature 98.49 [degF] [facility] 03-11-2019 10:55-0400 BP Diastolic 65 mm[Hg] [facility] 03-11-2019 10:55-0400 BP Systolic 119 mm[Hg] [facility] 03-11-2019 10:55-0400 Pulse (Heart Rate) 78 /min [facility] 03-11-2019 10:55-0400 Pulse Oximetry 97 % [facility] 03-11-2019 10:55-0400 Respiratory Rate 16 /min [facility] 03-11-2019 10:53-0400 BMI (Body Mass Index) 27.63 kg/m2 [facility] 03-11-2019 10:53-0400 Body weight 70.76 kg [facility] 03-11-2019 10:53-0400 Height 160 cm [facility] 02-10-2019 19:22-0400 BP Diastolic 86 mm[Hg] Lloyd Bengali [facility] 02-10-2019 19:22-0400 BP Systolic 123 mm[Hg] [facility] 02-10-[facility] 19:22-0400 Pulse (Heart Rate) 86 /min [facility] 02-10-2019 19:22-0400 Pulse Oximetry 97 % [facility] 02-10-2019 19:22-0400 Respiratory Rate 16 /min [facility] 02-10-2019 17:11-0400 Body Temperature 97.3 [degF] [facility] 10-07-2018 01:36-0400 Body Temperature 98.01 [degF] [facility] 10-07-2018 01:36-0400 BP Diastolic 73 mm[Hg] [facility] 10-07-2018 01:36-0400 BP Systolic 113 mm[Hg] [facility] 10-07-2018 01:36-0400 Pulse (Heart Rate) 85 /min [facility] 10-07-2018 01:36-0400 Pulse Oximetry 97 % [facility] 10-07-2018 01:36-0400 Respiratory Rate 18 /min [facility] 10-06-2018 23:01-0400 BMI (Body Mass Index) 31.53 kg/m2 [facility] 10-06-2018 23:01-0400 Body weight 80.74 kg [facility] 10-06-2018 23:01-0400 Height 160 cm [facility] 10-05-2018 00:24-0400 Body Temperature 98.29 [degF] [facility] 10-05-2018 00:24-0400 BP Diastolic 90 mm[Hg] [facility] 10-05-2018 00:24-0400 BP Systolic 141 mm[Hg] [facility] 10-05-2018 00:24-0400 Pulse (Heart Rate) 82 /min [facility] 10-05-2018 00:24-0400 Pulse Oximetry 97 % [facility] 10-05-2018 00:24-0400 Respiratory Rate 20 /min [facility] 10-04-2018 21:38-0400 Respiratory rate 16 /min [facility] 10-04-2018 19:31-0400 BMI (Body Mass Index) 31.53 kg/m2 [facility] 10-04-2018 19:31-0400 Body weight 80.74 kg [facility] 10-04-2018 19:31-0400 Height 160 cm [facility] 09-12-2018 23:29-0400 Pulse (Heart Rate) 113 /min [facility] [employer] 09-12-2018 23:29-0400 Pulse Oximetry 97 % [facility] [employer] 09-12-2018 23:16-0400 Body Temperature 98.49 [degF] [facility] 09-12-2018 22:34-0400 BP Diastolic 66 mm[Hg] [facility] [employer] 09-12-2018 22:34-0400 BP Systolic 117 mm[Hg] [facility] [employer] 09-12-2018 22:34-0400 Respiratory Rate 16 /min [facility] [employer] 09-12-2018 21:16-0400 BMI (Body Mass Index) 31 kg/m2 [facility] 09-12-2018 21:16-0400 Height 160 cm [facility] 09-12-2018 21:16-0400 Weight 79.38 kg [facility] [employer] Comment on above: [facility] 02-01-2018 21:30-0400 Body temperature 37.0 Celsius [facility] Comment on above: Performed By: #### VBG #### Unless otherwise noted, all testing performed by [place] [address] [address] [place], [place] [address] CLIA: [id number] Supervisor Marble: Cristofer Perry M.D. Encounters Encounter Date Encounter Type Care Provider Facility Start: 01-28-2025 ambulatory [facility] Facility: [facility] Start: 01-20-2025 End: 01-20-2025 Patient encounter procedure Kelsy Guillermo DO Work Phone: Endocrinology Comment on above: Type 2 diabetes lazaro itus with stable proliferative retinopathy, 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, 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 skilled nursing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 (HCC) (Primary Dx) Start: 01-19-2025 End: 01-19-2025 Patient encounter procedure Whit Schulte MD Work Phone: OB/Gynecology Comment on above: care and examination (HCC) (Primary Dx); Request for sterilization; Pre-op exam Start: 01-19-2025 End: 01-19-2025 Preprocedural examination done Whit Schulte MD Work Phone: [facility] Start: 12-31-2024 End: 12-31-2024 ambulatory [facility] Work Phone: [facility] 3 L&D Comment on above: [employer] Start: 12-31-2024 End: 12-31-2024 E-mail encounter from caregiver [facility] Work Phone: [facility] 3 L&D Start: 12-21-2024 End: 12-21-2024 Patient encounter procedure William Gramajo MD Work Phone: OB/Gynecology Comment on above: care and examination immediately after delivery (HCC) (Primary Dx) Start: 12-21-2024 End: 12-21-2024 ambulatory JAMARI BYRNE Facility:[facility] Start: 12-16-2024 End: 12-16-[address] Jamari Byrne MD Work Phone: [facility] Start: 12-16-2024 End: 12-16-2024 Patient encounter procedure Mariajose Nickerson CNM [facility] Work Phone: Start: 12-16-2024 End: 12-17-2024 Telephone encounter Mariajose Nickerson APRN.CNM Work Phone: OB/Gynecology Comment on above: Care Start: 12-15-2024 End: 12-15-2024 Telephone encounter Kelsy Guillermo DO Work Phone: Endocrinology Comment on above: Blood Sugar Reading Start: 12-08-2024 End: 12-08-2024 Telephone encounter Piper Julian MD Work Phone: OB/Gynecology Start: 12-07-2024 End: 12-08-2024 ambulatory William Gramajo MD Work Phone: OB/Gynecology Comment on above: Ob Delivery Note Start: 12-07-2024 End: 12-09-2024 Evaluation and management of inpatient Dr. William Gramajo MD [facility] Work Phone: Start: 12-06-2024 End: 12-06-2024 Telephone encounter Kelsy Guillermo DO Work Phone: Endocrinology Comment on above: Blood Sugar Reading Start: 12-06-2024 End: 12-06-2024 Patient encounter procedure [employer] [facility] Comment on above: Pre-existing type 2 diabetes mellitus in in first trimester (HCC) (Primary Dx); 38 weeks gestation of (HCC) Pre-existing type 2 diabetes mellitus in in third trimester (HCC) (Primary Dx); Supervision of high risk in third trimester (HCC); History of pre-eclampsia; H/O macrosomia in in prior , currently (HCC); 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HCC); 38 weeks gestation of (HCC) Start: 12-06-2024 End: 12-06-2024 ambulatory PIPER JULIAN Facility:[facility] Start: 12-06-2024 ambulatory Keshav Loving Facility:[facility] Start: 12-02-2024 End: 12-02-2024 E-mail encounter from [...] Start: 11-30-2024 End: 11-30-2024 Patient encounter procedure [employer] [facility] Comment on above: Pre-existing type 2 diabetes mellitus in in third trimester (HCC) (Primary Dx); Pre-existing type 2 diabetes mellitus in in first trimester (HCC) Start: 11-30-2024 End: 11-30-2024 ambulatory PIPER JULIAN Facility:[facility] Start: 11-25-2024 End: 11-25-2024 Telephone encounter Kelsy Gonzalez Radha DO Work Phone: Endocrinology Comment on above: Blood Sugar Reading Start: 11-25-2024 End: 11-25-2024 Patient encounter procedure William Gramajo MD Work Phone: OB/Gynecology Comment on above: History of herpes ge nitalis (Primary Dx); Pre-existing type 2 diabetes mellitus in in third trimester (HCC); History of pre-eclampsia; 36 weeks gestation of (HCC) Start: 11-25-2024 End: 11-25-2024 ambulatory PIPER JULIAN Facility:[facility] Start: 11-22-2024 End: 11-22-2024 Patient encounter procedure [employer] [facility] Comment on above: Obesity affecting pr egnancy in first trimester, unspecified obesity type (HCC) (Primary Dx); Pre-existing type 2 diabetes mellitus in in first trimester (HCC) Start: 11-22-2024 End: 11-22-2024 ambulatory PIPER JULIAN Facility:[facility] Start: 11-18-2024 End: 11-18-2024 Patient encounter procedure Keshav Loving MD Work Phone: OB/Gynecology Comment on above: Pre-existing type 2 diabetes mellitus in in third trimester (HCC) (Primary Dx); 35 weeks gestation of (HCC); Vaginal itching Start: 11-18-2024 End: 11-18-2024 ambulatory JAMARI BYRNE Facility:[facility] Start: 11-16-2024 End: 11-16-2024 Telephone encounter Kelsy Guillermo Work Phone: Endocrinology Comment on above: Blood Sugar Reading Start: 11-15-2024 End: 11-15-[address] Jamari Byrne MD Work Phone: [facility] Work Phone: Start: 11-15-2024 End: 11-15-[address] [facility] Work Phone: Start: 11-15-2024 End: 11-15-2024 Patient encounter procedure Keshav Loving MD Work Phone: OB/Gynecology Comment on above: Pre-existing type 2 diabetes mellitus in in third trimester (HCC) (Primary Dx); 35 weeks gestation of ([facility]); Supervision of high risk in third trimester ([facility]) Pre-existing type 2 diabetes mellitus in in first trimester (HCC) (Primary Dx); 35 weeks gestation of (HCC) Start: 11-15-2024 End: 11-15-2024 ambulatory PIPER JULIAN Facility:[facility] Start: 11-11-2024 End: 11-11-2024 Office outpatient visit 15 minutes Krys Kulkarni MD Work Phone: OB/Gynecology Comment on above: Pre-existing type 2 diabetes mellitus in in third trimester (HCC) (Primary Dx); pruritus, third trimester ([facility]); History of pre-eclampsia; H/O macrosomia in infant in prior , currently ([facility]); 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[facility] complication before ([facility]); 34 weeks gestation of ([facility]) Start: 11-11-2024 End: 11-11-2024 ambulatory JAMARI BYRNE Facility:[facility] Start: 11-08-2024 End: 01-08-2025 Follow-up encounter Krys Kulkarni MD Work Phone: OB/Gynecology Start: 11-08-2024 End: 11-08-2024 Patient encounter procedure [employer] 1 [employer] Comment on above: Pre-existing type 2 diabetes mellitus in in first trimester (HCC) (Primary Dx); 34 weeks gestation of (HCC) Start: 11-08-2024 End: 11-08-2024 ambulatory JAMARI Gonzalez CHAVEZ Facility:[facility] Start: 11-05-2024 End: 11-05-2024 ambulatory KRYS KULKARNI Facility:[facility] Start: 11-05-2024 End: 11-05-2024 Initial preventive medicine new pt age 12-17 yr Krys Kulkarni MD Work Phone: OB/Gynecology Comment on above: 33 weeks gestation o f (HCC) (Primary Dx); complication before (HCC); Pre-existing type 2 diabetes mellitus in in third trimester (HCC); Supervision of high risk in third trimester ([facility]); pruritus, third trimester (HCC) Start: 11-05-2024 End: 11-05-[address] [facility] Facility:[facility] Start: 11-04-2024 End: 11-04-2024 Subsequent hospital visit by physician Chava Mcdonald Ob L&D Work Phone: OB/Gynecology Comment [...] (HCC) (Primary Dx); High-risk , third trimester ([facility]) Start: 11-04-2024 End: 11-04-[address] Work Phone: Endocrinology Start: 11-02-2024 End: 01-02-2025 Follow-up encounter William Gramajo MD Work Phone: OB/Gynecology Start: 11-02-2024 End: 11-03-2024 Telephone encounter Piper Julian MD Work Phone: OB/Gynecology Start: 11-02-2024 End: 11-02-2024 Patient encounter procedure [employer] Comment on [...] affecting , antepartum, unspecified trimester (HCC) Start: 11-02-2024 End: 11-02-2024 ambulatory JAMARI BYRNE Facility:[facility] Start: 10-29-2024 End: 11-22-2024 Follow-up encounter Piper Julian MD Work Phone: OB/Gynecology Start: 10-29-2024 End: 11-03-2024 Telephone encounter Piper Julian MD Work Phone: OB/Gynecology Comment on above: Breast Pump Start: 10-28-2024 End: 10-28-2024 ambulatory JAMARI BYRNE Facility:[facility] Start: 10-25-2024 End: 10-25-2024 ambulatory JAMARI BYRNE Facility:[facility] Start: 10-25-2024 End: 10-25-2024 Patient encounter procedure Piper Julian MD Work Phone: OB/Gynecology Comment on above: Supervision of high risk in third trimester (HCC) (Primary Dx); Pre-existing type 2 diabetes mellitus in in third trimester (HCC); Exposure to parvovirus; History of pre-eclampsia Start: 10-25-2024 End: 10-25-2024 ambulatory JAMARI BYRNE Facility:[facility] Start: 10-20-2024 End: 10-20-2024 ambulatory Piper Julian MD Work Phone: OB/Gynecology Comment on above: results Start: 10-20-2024 End: 10-20-2024 E-mail encounter from caregiver Piper Julian MD Work Phone: OB/Gynecology Start: 10-19-2024 End: 10-19-2024 Telephone encounter Kelsy L Radha WEBSTER Work Phone: Endocrinology Comment on above: Blood Sugar Reading Start: 10-18-2024 End: 10-18-2024 E-mail encounter from caregiver Chava Ob L&D Work Phone: [place] Start: 10-18-2024 End: 10-18-2024 Patient encounter procedure Whit Schulte MD Work Phone: OB/Gynecology Comment on above: Supervision of high risk in third trimester (HCC) (Primary Dx); Pre-existing type 2 diabetes mellitus in in third trimester (HCC); Herpes simplex type 2 (HSV-2) infection affecting , antepartum, unspecified trimester (HCC); H/O macrosomia in in prior , currently (HCC); History of pre-eclampsia; 31 weeks gestation of ([facility] Start: 10-18-2024 End: 10-18-2024 ambulatory [facility] Work Phone: [place] Comment on above: M-Power Time to Sche dule Start: 10-16-2024 End: 10-16-[address] Jamari Byrne MD Work Phone: [facility] Work Phone: Start: 10-16-2024 End: 10-16-2024 Patient encounter procedure Mariajose Nickerson CN[facility] Work Phone: Start: 10-12-2024 [...] stable proliferative retinopathy, 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, 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 skilled nursing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 (HCC); Herpes simplex type 2 (HSV-2) infection affecting , antepartum, unspecified trimester (HCC) Start: 10-04-2024 End: 10-04-2024 ambulatory JAMARI BYRNE Facility:[facility] Start: 09-29-2024 End: 11-29-2024 Follow-up encounter Leonie [...] infection Start: 09-24-2024 End: 09-24-2024 Telephone encounter Kelsy Guillermo DO Work Phone: Endocrinology Comment on above: Blood Sugar Reading Start: 09-24-2024 End: 09-24-[address] Jamari Byrne MD Work Phone: [facility] Work Phone: Start: 09-24-2024 End: 09-24-2024 Patient encounter procedure Leonie Waldron CNM -[facility] Work Phone: Start: 09-24-2024 End: 09-24-2024 Patient encounter procedure Mary GOODIWN Work Phone: [facility] Comment on above: Procedure not gisselle d out (Primary Dx) Start: 09-24-2024 End: 09-24-2024 ambulatory JAMARI BYRNE Facility:[facility] Start: 09-23-2024 End: 09-24-2024 Refill Kelsy Guillermo DO Work Phone: Endocrinology Comment on above: Refill Request Start: 09-20-2024 End: 11-20-2024 Follow-up encounter Kelsy Gonzalez Radha DO Work Phone: Endocrinology Start: 09-20-2024 End: 09-20-2024 ambulatory JAMARI BYRNE Facility:[facility] Start: 09-20-2024 End: 09-20-2024 Patient encounter procedure Kelsy Guillermo DO Work Phone: Endocrinology Comment on above: Type 2 diabetes lazaro itus during , antepartum, third trimester (HCC) (Primary Dx); Insulin controlled gestational diabetes mellitus (GDM) in first trimester (HCC); High-risk , third trimester (HCC) Start: 09-14-2024 End: 09-14-2024 E-mail encounter from caregiver Chava Tamara Ob L&D Work Phone: [facility] 3 L&D Start: 09-14-2024 End: 09-14-2024 Patient encounter procedure Chava Mcdonald Ob L&D Work Phone: [facility] 3 L&D Comment on above: M-Power Referral Start: 09-13-2024 End: 09-13-2024 Orders Only Tiana Hutchinson RN OB/Gynecology Comment on above: complicati on before (HCC) (Primary Dx) Start: 09-11-2024 End: 09-11-2024 Telephone encounter Kelsy Guillermo DO Work Phone: Endocrinology Comment on above: Blood Sugar Reading Start: 09-09-2024 End: 11-09-2024 Follow-up encounter Piper Julian MD Work Phone: OB/Gynecology Start: 09-08-2024 End: 09-08-[address] [facility] Facility:[facility] Start: 09-07-2024 End: 10-20-2024 Telephone encounter Kelsy Guillermo DO Work Phone: Endocrinology Comment on above: Blood Sugar Reading Patient Question Start: 09-07-2024 End: 09-07-2024 [facility] Facility:[facility] Start: 09-07-2024 End: 09-07-2024 Patient encounter procedure Ronaldo uRbio MD Work Phone: OB/Gynecology Comment on above: Screening for diabet es mellitus (Primary Dx); Obesity affecting in first trimester, unspecified obesity type (HCC); Pre-existing type 2 diabetes mellitus in in first trimester (HCC); Herpes simplex type 2 (HSV-2) infection affecting , antepartum, unspecified trimester (HCC); 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HCC); Encounter for supervision of high risk in first trimester, antepartum ([facility]); 25 weeks gestation of ([facility]) Start: 09-06-2024 End: 09-06-2024 Office outpatient visit 15 minutes Jamari Byrne MD Work Phone: [facility] Comment on above: Exercise-induced ast hma (HHS-HCC); Bipolar depression ([facility]) Start: 09-06-2024 End: 09-06-2024 [facility] Ambulatory Start: 09-04-2024 End: 09-06-2024 Refill William Gramajo MD Work Phone: OB/Gynecology Comment on above: Med Change Request Start: 09-03-2024 End: 11-03-2024 Follow-up encounter William Gramajo MD Work Phone: OB/Gynecology Start: 09-02-2024 End: 09-02-[address] [facility] Facility:[facility] Start: 09-02-2024 End: 09-02-2024 Patient encounter procedure Whi Tech 1 Research Psychologist [facility] Comment on [...] Cardiology Start: 08-20-2024 End: 08-20-2024 Telephone encounter Kelsyshalom Ruffst DO Work Phone: Endocrinology Comment on above: Blood Sugar Reading Start: 08-18-2024 End: 08-18-2024 Telephone encounter Kelsy Lisa Ruffst DO Work Phone: Endocrinology Comment on above: Patient Request Start: 08-14-2024 End: 08-14-2024 Telephone encounter Kelsy Lisa Ruffst DO Work Phone: Endocrinology Comment on above: Blood Sugar Reading Start: 08-10-2024 End: 10-10-2024 Follow-up encounter William Gramajo MD Work Phone: OB/Gynecology Start: 08-10-2024 End: 08-10-2024 Telephone encounter Kelsy Ruffst DO Work Phone: Endocrinology Comment on above: returning your call Start: 08-10-2024 End: 08-10-2024 ambulatory JAMARI CHAVEZ Facility:[facility] Start: 08-10-2024 End: 08-10-2024 Patient encounter procedure Whi Tech 1 Research Psychologist [facility] Comment on [...] Reading Start: 07-26-2024 End: 07-26-2024 ambulatory JAMARI Lisa BYRNE Facility:[facility] Start: 07-26-2024 End: 07-26-2024 Patient encounter procedure Kelsy Lisa Guillermo DO Work Phone: Endocrinology Comment on above: Type 2 diabetes lazaro itus complicating , antepartum, second trimester (Primary Dx); Insulin controlled gestational diabetes mellitus (GDM) in first trimester; High-risk , second trimester Start: 07-23-2024 End: 07-23-2024 ambulatory JAMARI L CHAVEZ Facility:[facility] Start: 07-23-2024 End: 07-23-2024 Patient encounter procedure William Gramajo MD Work Phone: OB/Gynecology Comment on above: Vulvar irritation (P rimary Dx) Start: 07-20-2024 End: 07-20-2024 Telephone encounter Kelsy Gonzalez Radha DO Work Phone: Endocrinology Comment on above: Blood Sugar Reading Start: 07-17-2024 End: 07-19-2024 Refill Kelsy Guillermo DO Work Phone: Endocrinology Comment on above: Refill Request Start: 07-14-2024 End: 07-14-2024 Telephone encounter Kelsy Guillermo DO Work Phone: Endocrinology Comment on above: Blood Sugar Reading Start: 07-13-2024 End: 07-13-2024 ambulatory JAMARI Lisa CHAVEZ Facility:[facility] Start: 07-13-2024 End: 07-13-2024 Patient encounter procedure Whi Tech 1 Research Psychologist [facility] Comment on above: Pre-existing type 2 diabetes mellitus in in first trimester (Primary Dx); History of pre-eclampsia; H/O macrosomia in infant in prior , currently ; 17 weeks gestation of ; Encounter for screening for malformation using ultrasound Obesity affecting pr egnancy in first trimester, unspecified obesity type (Primary Dx); 17 weeks gestation of ; Encounter for anatomic survey; Herpes simplex type 2 (HSV-2) infection affecting , antepartum, unspecified trimester; with uncertain dates in first trimester Start: 07-04-2024 End: 07-04-2024 Telephone encounter Kelsy Gonzalez Radha Work Phone: Endocrinology Comment on above: Blood Sugar Reading Start: 07-02-2024 End: 07-02-2024 Telephone encounter William Gramajo MD Work Phone: OB/Gynecology Comment on above: OB Influenza Start: 07-01-2024 End: 07-01-2024 Emergency department patient visit Sixto Myers MD Work Phone: [facility] Comment on above: Influenza A [...] Reading Start: 06-16-2024 End: 06-16-[address] Work Phone: Endocrinology Comment on above: Pre-existing type 2 diabetes mellitus in in second trimester (Primary Dx) Start: 06-16-2024 End: 06-16-2024 Telemedicine consultation with patient Carrie Rasta NARVAEZ Work Phone: Endocrinology Start: 06-15-2024 End: 06-15-2024 ambulatory JAMARI [employer] CHAVEZ Facility:[facility] Start: 06-15-2024 End: 06-15-2024 Patient encounter procedure Whi Tech 1 Research Psychologist [facility] Comment on above: Encounter for antena boone screening for malformation using ultrasound (Primary Dx); 13 weeks gestation of H/O macrosomia in in [place] in prior , currently ; Pre-existing type 2 diabetes mellitus in in first trimester; History of pre-eclampsia Start: 06-15-2024 End: 06-15-2024 ambulatory JAMARI BYRNE Facility:[facility] Start: 06-12-2024 End: 06-14-2024 ambulatory Kelsy Guillermo DO Work Phone: Endocrinology Comment on above: Glucose monitor Start: 06-11-2024 End: 06-11-2024 Telephone encounter Kelsy Guillermo DO Work Phone: Endocrinology Comment on above: Blood Sugar Reading Start: 06-07-2024 End: 06-07-2024 ambulatory JAMARI BYRNE Facility:[facility] Start: 06-07-2024 End: 06-07-2024 Patient encounter procedure [...] Start: 05-26-2024 End: 05-26-2024 ambulatory JAMARI Lisa FROSTER Facility:[facility] Start: 05-26-2024 End: 05-26-2024 Office outpatient visit 15 minutes Krys Kulkarni [...] patient visit Reza Dyer DO Work Phone: [facility] Emergency [facility] Comment on above: Abdominal pain durin g in first trimester ([facility]) (Primary Dx) Start: 05-20-2024 End: 05-25-2024 Telephone [...] 05-10-2024 End: 05-10-2024 Telephone encounter Zayda Parker APRN.[employer] Work Phone: OB/Gynecology Comment on above: Results Start: 05-09-2024 End: 05-09-2024 Telephone encounter Kelsy Lisa Guillermo DO Work Phone: Endocrinology Comment on above: Blood Sugar Reading Start: 05-07-2024 End: 05-07-2024 ambulatory JAMARI BYRNE Facility:[facility] Start: 05-07-2024 End: 05-07-2024 Patient encounter procedure Zayda Erwinjorgito RAMÍREZ Work Phone: OB/Gynecology Comment on above: Encounter [...] cervical cancer Start: 05-04-2024 End: 05-04-2024 ambulatory [facility] Ambulatory Start: 05-04-2024 End: 05-04-2024 Office outpatient visit 15 minutes Jamari Byrne MD Work Phone: [facility] Comment on above: Bipolar depression ( Multi) (Primary Dx); Hyperglycemia due to diabetes mellitus (Multi); Cigarette nicotine dependence with other nicotine-induced disorder Start: 05-03-2024 End: 05-03-2024 ambulatory JAMARI BYRNE Facility:[facility] Start: 05-03-2024 End: 05-03-2024 Patient encounter procedure Kelsy Gonzalez Radha DO Work Phone: Endocrinology Comment on above: Type 2 diabetes lazaro itus complicating , antepartum, first trimester (Primary Dx); Insulin controlled gestational diabetes mellitus (GDM) in first trimester; High-risk , first trimester Start: 05-03-2024 End: 05-07-2024 Telephone encounter Ana ARRIETA Navigation Comment on above: Social Work Services depression in pregna ncy Start: 04-30-2024 End: 04-30-2024 ambulatory Tee Li RN NURSE WEIGHT LOSS SALES CONSULTANT Comment on above: Blood Sugar Elevatio n (/) Start: 04-28-2024 End: 04-28-2024 Office outpatient visit 25 minutes Joanie Gardenia Stanley TELEPHONE TRIAGE NURSE-[employer] HEL[employer] Work Phone: [facility] Comment on above: Bacterial vaginosis (Primary Dx); Less than 8 weeks gestation of ([facility]) Start: 04-28-2024 End: 04-28-20[facility] Start: 04-23-2024 End: 04-23-2024 Telephone encounter Kelsy Guillermo DO Work Phone: Endocrinology Start: 04-19-2024 End: 04-19-2024 Telephone encounter Zayda Parker APRN.[employer] Work Phone: OB/Gynecology Comment on above: Patient Update (ER v isit) Start: 04-18-2024 End: 04-18-2024 Emergency department patient visit JAMARI BYRNE [facility] Emergency [facility] Comment on above: Urinary tract infect ion in mother during first trimester of ([facility]) (Primary Dx); Herpes simplex vulvovaginitis Start: 04-17-2024 End: 04-17-2024 ambulatory [facility] Start: 04-14-2024 End: 04-15-2024 Emergency department patient visit [facility] Start: 04-14-2024 End: 04-15-2024 Telephone encounter Nurse Research Psychologist Katalina Liberty Work Phone: Obstetrics/Gynecology Comment on above: Care Coordination Start: 02-26-2024 End: 02-26-2024 ambulatory No Primary Care Physician Facility:[facility] Start: 01-23-2024 End: 01-23-2024 Office outpatient visit 15 minutes Jamari Byrne MD Work Phone: [facility] Comment on above: Exercise-induced ast hma (HHS-HCC) (Primary Dx); Hyperglycemia due to diabetes mellitus (Multi); Bipolar depression (Multi); Necrobiosis lipoidica Start: 01-23-2024 End: 01-23-2024 ambulatory [facility] Ambulatory Start: 12-25-2023 End: 12-25-2023 Office outpatient visit 15 minutes Jamari Byrne MD Work Phone: [facility] Comment on above: Necrobiosis lipoidic a (Primary Dx); Hyperglycemia due to diabetes mellitus (Multi) Start: 12-25-2023 End: 12-25-2023 ambulatory [facility] Ambulatory Start: 12-16-2023 End: 12-16-2023 ambulatory [facility] Start: 09-15-2023 End: 09-15-2023 Office outpatient visit 25 minutes Jamari Byrne MD Work Phone: [facility] Comment on above: Sebaceous cyst (Prim stephen Dx); Hyperglycemia due to diabetes mellitus (CMS/HCC); Exercise-induced asthma Start: 09-15-2023 End: 09-15-2023 ambulatory [facility] Start: 08-19-2023 End: 08-19-2023 Patient encounter procedure Mary GOODWIN Work Phone: [facility] Comment on above: Pain, dental (Primar y Dx) Start: 07-10-2023 End: 07-10-2023 Office outpatient visit 15 minutes Jamari Byrne MD Work Phone: [facility] Comment on above: Necrobiosis lipoidic a (Primary Dx); Hyperglycemia due to diabetes mellitus (CMS/HCC) Start: 05-09-2023 End: 05-09-2023 Office outpatient visit 15 minutes Jamari Byrne MD Work Phone: [facility] Comment on above: Hyperglycemia due to diabetes mellitus ([facility]) Start: 03-17-2023 End: 03-17-2023 Office outpatient visit 15 minutes Jamari Byrne MD Work Phone: [facility] Comment on above: Exercise-induced ast hma (Primary Dx); Hyperglycemia due to diabetes mellitus ([facility]) Start: 12-13-2022 End: 12-13-2022 Office outpatient visit 25 minutes Jamari Byrne MD Work Phone: [facility] Comment on above: Hyperglycemia due to diabetes mellitus ([facility]) Start: 11-27-2022 ambulatory MD JEANIE SUTTON Facility:[id number] Start: 08-17-2022 End: 08-17-2022 [facility] Start: 08-17-2022 End: 08-17-2022 Office outpatient visit 25 minutes Lazara Jon DO Work Phone: [facility] Comment on above: Yeast vaginitis (Verito tee Dx); Late menses; Vaginal discharge Start: 05-24-2022 Office outpatient vi sit 15 minutes Jamari Byrne Work Phone: [facility] Work Phone: Start: 05-24-[address] Jamari Burrell Facility:[id number] Start: 02-22-[address] Jamari Burrell Facility:[id number] Start: 01-04-2022 Office outpatient vi sit 10 minutes Jamari Byrne Work Phone: [facility] Work Phone: Start: 01-04-2022 ambulatory Elie Collins Facility: [id number] Start: 12-25-2021 Office outpatient vi sit 15 minutes Jamari Byrne Work Phone: [address] Work Phone: Start: 12-25-2021 ambulatory MD JEANIE SUTTON Facility:[id number] Start: 12-17-2021 Office outpatient vi sit 15 minutes Jamari L Chavez Work Phone: [facility] [employer] Work Phone: Start: 12-17-2021 ambulatory MD JEANIE MAGAÑAMONA Facility:[id number] Start: 12-10-2021 Chart Update Jamari L Robbie r Work Phone: [facility] [address] [place] Work Phone: Start: 11-27-2021 Chart Update Jamari L Robbie r Work Phone: [facility] [employer] Work Phone: Start: 11-26-2021 Initial preventive medicine new pt age 18-39yrs Jamari L Chavez Work Phone: [facility] [employer] Work Phone: Start: 11-13-2021 AUDIT Jamari L Robbie r Work Phone: [facility] Work Phone: Start: 08-03-2021 End: 08-04-2021 ambulatory KATIANA Diehl [facility] Start: 07-03-2021 AUDIT Rich L Oberha user Work Phone: [facility] Work Phone: Start: 05-29-2021 AUDIT Rich L Oberha user Work Phone: [facility] Work Phone: Start: 01-04-2021 Office outpatient vi sit 25 minutes Rich Gonzalez Oberhauser Work Phone: [facility] Work Phone: Start: 12-26-2020 AUDIT Rich L Oberha user Work Phone: [facility] Work Phone: Start: 11-16-2020 AUDIT Rich L Oberha user Work Phone: [facility] Work Phone: Start: 11-02-2020 Office outpatient vi sit 25 minutes Rich Ng Work Phone: [facility] Work Phone: Start: 10-23-2020 End: 10-24-2020 Emergency department patient visit Epifanio Sorensen [facility] Emergency 15 Start: 08-24-2020 End: 08-24-2020 Orders Only Tessa Peralta Work Phone: [facility] Start: 07-19-2020 End: 07-20-2020 Patient encounter procedure [facility] Start: 07-19-2020 End: 07-19-2020 Subsequent hospital visit by physician Srini Medina Work Phone: [facility] Comment on above: Seizure (HCC) Start: 07-05-2020 End: 07-05-2020 [facility] Start: 03-21-2020 End: 03-22-2020 Patient encounter procedure [facility] Start: 03-21-2020 End: 03-21-2020 Subsequent hospital visit by physician Maty Chavez Work Phone: [facility] Comment on above: MG (obstructive sle ep apnea) Start: 03-17-2020 End: 03-17-2020 Patient encounter procedure MATY CHAVEZ [facility] Start: 01-11-2020 Patient encounter procedure Rich Galavizlalonoman [facility] Work Phone: Start: 12-14-2019 Patient encounter procedure Rich Galavizlalonoman [facility] Work Phone: Start: 12-08-2019 End: 12-12-2019 [facility] Start: 12-08-2019 End: 12-08-2019 Office outpatient new 45 minutes Srini Medina Work Phone: [facility] Comment on above: Seizure (HCC) Start: 12-07-2019 Patient encounter procedure VERONA HILLIARD [facility] Start: 11-09-2019 Patient encounter procedure Rich Ng [facility] Work Phone: Start: 10-21-2019 [facility] Work Phone: Start: 09-29-2019 Patient encounter procedure [facility] Work Phone: Start: 09-27-2019 Patient encounter procedure Rich Ng [facility] Work Phone: Start: 05-19-2019 Patient encounter procedure Jun[facility] Black[facility] [address] [employer] Work Phone: Start: 05-13-2019 Patient encounter procedure Juno Blackburn [facility] [address] [employer] Work Phone: Start: 03-21-2019 End: 03-21-2019 Emergency department patient visit Kelsey Stewart Work Phone: [facility] Comment on above: Abdominal cramps (Pr imary Dx); Nausea Start: 03-11-2019 End: 03-11-2019 Emergency department patient visit Charlie Cannon Work Phone: [facility] Comment on above: Anxiety (Primary Dx) Start: 02-10-2019 End: 02-10-2019 Emergency department patient visit Lloyd Quiles Work Phone: [facility] Comment on above: 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) Start: 10-06-2018 End: 10-07-2018 Emergency department patient visit Kelsey Stewart Work Phone: [facility] Comment on above: Viral upper respirat ory infection (Primary Dx) Start: 10-04-2018 End: 10-05-2018 Emergency department patient visit David Oemr Wilson Work Phone: [facility] Comment on above: Hyperglycemia (Prima ry Dx); Diabetes mellitus due to underlying condition with hyperosmolarity 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, without long-term current use of insulin (HCC) Start: 09-12-2018 End: 09-12-2018 Emergency department patient visit Verona Lopez [facility] Start: 07-16-2018 End: 07-16-2018 Emergency department patient visit Kelsey Stewart Facility:[facility] Start: 02-01-2018 End: 02-02-2018 Emergency department patient visit Elie Luis Hernadez Facility:[facility] Start: 01-23-2018 Emergency department patient visit FABIO HAWK [facility] Start: 12-14-2017 End: 12-14-2017 Emergency department patient visit MILLY SINCLAIR Facility: Start: 11-30-2017 End: 11-30-2017 Emergency department patient visit PCP Unknown Physician Facility:[facility] Start: 11-21-2017 End: 11-21-2017 Ambulatory KADE VILLALOBOS Facility:[facility] Start: 11-18-2017 End: 11-19-2017 Patient encounter procedure KALYANI [facility] Start: 11-15-2017 End: 11-15-2017 Emergency department patient visit VERONA HILLIARD Facility:[facility] Start: 10-09-2017 End: 10-09-2017 Emergency department patient visit VERONA HILLIARD Facility:[facility] Start: 09-28-2017 End: 09-28-2017 Emergency department patient visit VERONA HILLIARD Facility:[facility] Start: 09-18-2017 End: 09-18-2017 Emergency department patient visit JOSIE HERNANDEZ Facility:[facility] Start: 07-03-2017 End: 07-03-2017 Patient encounter procedure KALYANI [facility] Lakshmi Lopez er Work Phone: [facility] Work Phone: Comment on above: AGE 15; Procedures Date Procedure Procedure Detail Performing Clinician Start: 01-20-2025 Hemoglobin A1c/Hemoglobin.total in Blood [facility] Provider Start: 12-16-[address] Jamari Byrne MD Work Phone: Start: 12-07-2024 Methadone measurement, urine Dr. Jamari Byrne MD Work Phone: Start: 12-07-2024 Serologic test for syphilis Dr. Jamari Byrne MD Work Phone: Start: 12-06-2024 biophysical pr ofile non-stress testing [...] Dr. Jamari Byrne MD Work Phone: Start: 11-15-[address] Anderson Byrne MD Work Phone: Start: 11-15-2024 Urnls [...] et rgnt auto w/o microscopy Leonie Waldron APRN.CNM Work Phone: Start: 09-20-2024 Hemoglobin A1c/Hemoglobin.total in Blood Kelsy Guillermo Work Phone: Start: 09-02-2024 Us preg uterus after 1st trimest 06/09 gestation William Gramajo MD Work Phone: Start: 08-10-2024 Urnls dip stick/tabl et rgnt non-auto w/o micrscp William Gramajo MD Work Phone: Start: 08-10-2024 Us preg uterus after 1st trimest 06/09 gestation William Gramajo MD Work Phone: Start: 07-13-2024 Urnls dip stick/tabl et rgnt non-auto w/o micrscp William Gramajo MD Work Phone: Start: 02-04-2025 Us preg uterus after 1st trimest 06/09 gestation Zayda Erwinjorgito [employer] Work Phone: Start: 07-01-2024 Radiologic exam chest 2 views Sixto Myers MD Work Phone: Start: 07-01-2024 Influenza virus A an d B and SARS-CoV-2 (COVID-19) identified in Respiratory specimen by SUMIT with probe detection Sixto Myers MD Work Phone: Start: 06-15-2024 Us nuchal kraus slucency 1st gestation Zayda Erwinjorgito [employer] Work Phone: Start: 06-07-2024 Hemoglobin A1c/Hemoglobin.total in Blood Kelsy Gonzalez Radha DO Work Phone: Start: 05-26-2024 Urnls dip stick/tabl et rgnt non-auto w/o micrscp Krys Kulkarni MD Work Phone: Start: 05-21-2024 Urinalysis complete W Reflex Culture panel - Urine Reza Dyer DO Work Phone: Start: 05-21-2024 Urnls dip stick/tabl et reagent auto microscopy Reza Dyer DO Work Phone: Start: 05-21-2024 Comprehensive metabolic panel Reza Dyer DO Work Phone: Start: 05-07-2024 Antibody screen JAMARI BYRNE Comment on above: Order Comment: Speci men Type: BLOOD SPECIMENOrdering Facility: [facility] Address: [address] [place] [address] Performed By: #### T SPN ####CC MAIN BLOOD BANKCLIA [id number] [place] [address] [place] Start: 05-07-2024 Us uterus l imited fetuses Zayda Erwinjorgito [employer] Work Phone: Start: 05-07-2024 Microscopic observat ion [Identifier] in Cervix by Cyto stain Reza Dyer DO Work Phone: Start: 05-03-2024 Hemoglobin A1c/Hemoglobin.total in Blood Kelsy Guillermo DO Work Phone: Start: 04-18-2024 Gonadotropin chorion ic quantitative Angy Staples Guera TELE[employer]ONE TRIAGE NURSE-[employer] Work Phone: Start: 04-18-2024 Urinalysis microscop ic panel - Urine Qualitative by Automated Angyminnie Sierradervimal TELEPHONE TRIAGE NURSE-[employer] Work Phone: Start: 04-18-2024 End: 04-18-2024 Iadna chlamydia trachomatis amplified probe tq Angy Staples Bilderback TELEPHONE TRIAGE NURSE-[employer]OOK [employer] Work Phone: Start: 04-18-2024 Urine test visual color cmprsn meths Angy Staples Bildervimal TELEPHONE TRIAGE NURSE-COOK HEL[employer] Work Phone: Start: 04-15-2024 Urinalysis MILLY Fernandez Comment on above: Result Comment: URIN ALYSIS Performed By: #### 2 [id number] #### [facility],[address] [place] [address] Start: 09-15-2023 Basic metabolic 2000 panel - [...] Phone: Start: 07-19-2020 Electroencephalogram w/rec awake&drowsy Srini Kearns Lobo Work Phone: Start: 10-21-2019 CT Head without Contrast Rich Ng Start: 10-21-2019 Localize cerebral se izure cptr portable eeg Rich gN Start: 09-27-2019 Basic metabolic 1998 panel - Serum or Plasma Rich Ng Start: 09-27-2019 Blood count complete auto&auto difrntl wbc Rich Oberhauser Start: 09-27-2019 Gonadotropin chorion ic quantitative Rich Oberhauser Start: 09-27-2019 Hemoglobin glycosylated a1c Rich Oberhauser Start: 09-27-2019 TSH WITH REFLEX TO F REE T4 IF ABNORMAL Rich Oberhauser Start: 05-13-2019 Gonadotropin chorion ic quantitative Juno Castine Start: 03-22-2019 Choriogonadotropin.b eta subunit ( test) [Presence] in Serum or Plasma Claude Riverasame Gurnard Perch [employer] Work Phone: Start: 03-22-2019 Urinalysis Claude Wa rsame Gurnard [employer] Work Phone: Start: 03-11-2019 Ethanol [Mass/volume ] [...] 02-10-2019 Choriogonadotropin ( test) [Presence] in Urine [facility] Work Phone: Start: 02-10-2019 Drugs of abuse urine screening test Lloyd Quiles Work Phone: Start: 02-10-2019 Ethanol [Mass/volume ] in Serum or Plasma Lloyd Quiles Work Phone: Start: 02-10-2019 LAVENDER TOP Lloyd Quiles Work Phone: Start: 02-10-2019 LIGHT BLUE TOP Lloyd Quiles Work Phone: Start: 02-10-2019 MINT GREEN TOP Lloyd Quiles Work Phone: Start: 02-10-2019 RAINBOW DRAW Lloyd Quiles Work Phone: Start: 10-07-2018 Standard chest X-ray Christopher lobato Queenie Stewart Work Phone: Start: 10-07-2018 Choriogonadotropin ( test) [Presence] in Urine Kelsey Stewart Work Phone: Start: 10-07-2018 Urinalysis Kelsey Ruddean andrade Pat Work Phone: Start: 10-07-2018 Glucose [Mass/volume] in Blood [facility] Start: 10-05-2018 End: 10-05-2018 Glucose [Mass/volume] in Blood [facility] Start: 10-05-2018 Glucose [Mass/volume] in Blood [facility] Start: 10-05-2018 Evaluation of arteri al blood gas studies David Wilson Work Phone: Start: 10-05-2018 Standard chest X-ray St jerad Paiz Work Phone: Start: 10-05-2018 Beta hydroxybutyrate [Moles/volume] in Serum or Plasma Hailey Paiz Work Phone: Start: 10-05-2018 Complete blood count with white cell differential, automated Hailey Paiz Work Phone: Start: 10-05-2018 Complete blood count with white cell differential, manual Hailey Paiz Work Phone: Start: 10-05-2018 Comprehensive metabo lic 2000 panel - Serum or Plasma Hailey Paiz Work Phone: Start: 10-05-2018 D-dimer assay, [...] Phone: Start: 10-04-2018 Glucose [Mass/volume] in Blood [facility] Start: 09-13-2018 Glucose blood reagent strip June Andrade [employer] Work Phone: Start: 09-13-2018 CBC, EDIF, PLATELET Clara ne Raymond [employer] Work Phone: Start: 09-13-2018 Choriogonadotropin ( test) [Presence] in Serum or Plasma June Andrade [employer] Work Phone: Start: 09-13-2018 Comprehensive metabolic panel June A [employer] Work Phone: Start: 09-13-2018 Choriogonadotropin ( test) [Presence] in Urine June Andrade [employer] Work Phone: Start: 09-13-2018 Urinalysis microscopic only June A Guillod Work Phone: Start: 09-13-2018 URINALYSIS, MACRO June A Onofred Work Phone: Start: 05-06-2016 Microscopic observat ion [...] or Population) (1 - 1-dose 75+ series) [facility] Start: 2045 Zoster Vaccines (1 o f 2) Zoster Vaccines (1 of 2) [facility] Start: 10-04-2034 Urine microalbumin profile DTaP,Tdap,Td Vaccine (8 - Td or Tdap) [facility] Start: 01-20-2030 Tetanus vaccination Tetanus: Every 1 0yrs [facility] Start: 05-07-2027 Screening for malign ant neoplasm of cervix [facility] Start: 07-16-2026 Glaucoma screening Diabetes: R etinopathy Screening [facility] Start: 07-23-2025 Hemoglobin A1c measurement HbA1C [facility] Start: 07-20-2025 End: 07-20-2025 Patient encounter procedure 07/20/2025 11:20 AM EST Office Visit Endocrinology [address] [place], [place] [id number] Kelsy Guillermo, [address] [place], [place] [id number] 6 month follow up Endocrinology Comment on above: 6 month follow up Start: 07-11-2025 End: 07-11-2025 ambulatory 07/11/2025 9:45 AM EST Results Only Haroldo Davis [facility] [address] [place] [address] Haroldo Davis [facility] Start: 07-10-2025 End: 10-09-2025 Comprehensive metabolic 2000 panel - Serum or Plasma COMPREHENSIVE METABOLIC PANEL Lab Routine 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, 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, 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 oil heaterman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 (HCC) Expected: 07/10/2025 (Approximate), Expires: 10/09/2025 [facility] Comment on above: Expected: 07/10/2025 (Approximate), Expires: 10/09/2025 Start: 07-10-2025 End: 10-09-2025 Hemoglobin A1c in Blood HEMOGLOBIN A1C Lab Routine 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, 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, 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 skilled nursing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 (HCC) Expected: 07/10/2025 (Approximate), Expires: 10/09/2025 [facility] Comment on above: Expected: 07/10/2025 (Approximate), Expires: 10/09/2025 Start: 07-10-2025 End: 10-09-2025 Lipid 1996 panel - Serum or Plasma LIPID PANEL, FASTING Lab Routine 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, 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, 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 skilled nursing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 (HCC) Expected: 07/10/2025 (Approximate), Expires: 10/09/2025 [facility] Comment on above: Expected: 07/10/2025 (Approximate), Expires: 10/09/2025 Start: 07-10-2025 End: 10-09-2025 Microalbumin/Creatinine [Mass Ratio] in Urine ALBUMIN/CREATININE RATIO, URINE Lab Routine 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, 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, 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 skilled nursing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 (HCC) Expected: 07/10/2025 (Approximate), Expires: 10/09/2025 [facility] Comment on above: Expected: 07/10/2025 (Approximate), Expires: 10/09/2025 Start: 07-10-2025 End: 10-09-2025 Thyrotropin [Units/volume] in Serum or Plasma THYROID STIMULATING HORMONE Lab Routine 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, 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, 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 oil heaterman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 (HCC) Expected: 07/10/2025 (Approximate), Expires: 10/09/2025 [facility] Comment on above: Expected: 07/10/2025 (Approximate), Expires: 10/09/2025 Start: 03-22-2025 Hemoglobin A1c measurement HbA1C [facility] Start: 03-09-2025 End: 03-09-2025 Patient encounter procedure 03/09/2025 9:20 AM EDT Office Visit [facility] [address] [place] [address] Jamari Byrne MD [address] [facility], [address] [place] [address] [facility] Start: 02-13-2025 Glaucoma screening Diabetes: R etinopathy Screening [facility] Start: 02-07-2025 Influenza vaccination [facility] Start: 01-20-2025 End: 01-20-2025 Follow-up encounter 01/20/2025 2:00 PM EDT Education Endocrinology [address] [place] [address] [place] [address] [address] [place] [address] follow up Endocrinology Comment on above: follow up Start: 01-20-2025 End: 01-20-2025 Patient encounter procedure Endocrinology Comment on above: see me for post part um f/u Jan 20 (virtual or in person) 6 week post Start: 01-19-2025 End: 01-19-2025 Patient encounter procedure 01/19/2025 1:20 PM EDT Office Visit OB/Gynecology [address] [place] [id number] Whit Morton MD [address] [place] [id number] 6 week post & pre-op surgery 01/28 OB/Gynecology Comment on above: 6 week post & pre-op surgery 01/28 Start: 12-21-2024 End: 12-21-2024 Patient encounter procedure 12/21/2024 1:40 PM EDT Office Visit OB/Gynecology [address] [place] [id number] William Gramajo MD [address] [place] [address] 2 week post OB/Gynecology Comment on above: 2 week post Start: 12-16-2024 Vital signs measurements [facility] Start: 12-16-2024 End: 12-16-2024 Patient encounter procedure OB/Gynecology Comment on above: NST OB/NST Start: 12-16-2024 Patient discharge [facility] Start: 12-13-2024 End: 12-13-2024 Patient encounter procedure [facility] Comment on above: BPP OB/BPP Start: 12-09-2024 End: 12-09-2024 Patient encounter procedure OB/Gynecology Comment on above: NST OB/NST Start: 12-09-2024 Patient discharge [facility] Start: 12-08-2024 [facility] Start: 12-07-2024 Documentation procedure [facility] Start: 12-07-2024 Administration of medication [facility] Start: 12-07-2024 Application of ice collar, cap or bag [facility] Start: 12-07-2024 Catheterization of vein [facility] Start: 12-07-2024 Introduction of urin stephen catheter [facility] Start: 12-07-2024 Measuring intake and output [facility] Start: 12-07-2024 Notification of physician [facility] Start: 12-07-2024 Procedure discontinued [facility] Start: 12-07-2024 Provision of activit y privileges [facility] Start: 12-07-2024 Vital signs measurements [facility] Start: 12-07-2024 End: 12-07-2024 [facility] Start: 12-07-2024 Admission procedure [facility] Start: 12-07-2024 Consultation [facility] Start: 12-06-2024 End: 12-06-2024 Patient encounter procedure [facility] Comment on above: BPP OB/BPP Start: 12-02-2024 End: 12-02-2024 Patient encounter procedure OB/Gynecology Comment on above: NST OB/NST Start: 11-30-2024 End: 11-30-2024 Patient encounter procedure 11/30/2024 3:30 PM EDT Routine Office Visit [facility] [address] [place] [id number] GROWTH/BPP/MFM [facility] Comment on above: GROWTH/BPP/MFM Start: 11-26-2024 Screening for malign ant neoplasm of cervix [facility] Start: 11-25-2024 End: 11-25-2024 Patient encounter procedure OB/Gynecology Comment on above: NST OB/NST Start: 11-22-2024 End: 11-22-2024 Patient encounter procedure 11/22/2024 9:00 AM EDT Routine Office Visit [facility] [address] [place] [id number] BPP [facility]aternal Medicine Comment on above: BPP Start: 11-18-2024 End: 11-18-2024 Patient encounter procedure OB/Gynecology Comment on above: NST OB/NST Start: 11-15-2024 Nonstress test [facility] Start: 11-15-2024 Obstetric monitoring [facility] Start: 11-15-2024 Vital signs measurements [facility] Start: 11-15-2024 End: 11-15-2024 [facility] Start: 11-15-2024 Bacteria identified in Urine by Culture Urine Culture [facility] Start: 11-15-2024 End: 11-15-2024 Patient encounter procedure [facility] Comment on above: BPP OB/BPP Start: 11-15-2024 Patient discharge [facility] Start: 11-11-2024 End: 11-11-2024 Patient encounter procedure OB/Gynecology Comment on above: NST NST/OB Start: 11-08-2024 End: 11-08-2024 Patient encounter procedure 11/08/2024 9:00 AM EDT Routine Office Visit [facility] [address] [place] [id number] BPP [facility]aternal Medicine Comment on above: BPP Start: 11-05-2024 End: 02-04-2025 BILE ACIDS FRACT BLD [facility] Comment on above: Expected: 11/05/2024 , Expires: 02/04/2025 Start: 11-05-2024 End: 02-04-2025 BILE ACIDS, TOTAL [facility] Work Phone: Comment on above: Expected: 11/05/2024 , Expires: 02/04/2025 Start: 11-05-2024 End: 11-05-2024 Patient encounter procedure OB/Gynecology Comment on above: NST/OB NST/OB - encourage o ptho f/u JG-NST/OB Start: 11-04-2024 End: 11-04-2024 Patient encounter procedure 11/04/2024 2:20 PM EDT Office Visit [facility] [address] [place] [id number] Jamari Byrne MD [address] [facility], [address] [place] [address] [facility] Start: 11-04-2024 End: 11-04-2024 Follow-up encounter 11/04/2024 11:00 AM EDT Education Endocrinology [address] [place], [place] [phone] [place] [address] [place] [address] follow up on 11/04/24 at 11 am. [...] Office Visit Maternal Medicine [address] [place] [address] BPP [facility]aternal [facility] Comment on above: BPP Start: 10-25-2024 End: 01-24-2025 PARVOVIRUS B19 IGG+M [facility] Work Phone: Comment on above: Expected: 10/25/2024 , Expires: 01/24/2025 Start: 10-25-2024 End: 10-25-2024 Patient encounter procedure OB/Gynecology Comment on above: NST OB Routine with EKG Start: 10-18-2024 End: 10-18-2024 Patient encounter procedure 10/18/2024 1:50 PM EDT Routine Office Visit OB/Gynecology [address] [place], [place] [id number] Keshav Loving MD [address] [facility] [place] [address] OB Routine OB/Gynecology Comment on above: OB Routine Start: 10-16-2024 [facility] Start: 10-16-2024 Bacteria identified in Urine by Culture Urine Culture [facility] Start: 10-16-2024 Iv infusion therapy prophylaxis/dx ea hour THER/PROPH/DIAG IV INF ADDON [facility] Start: 10-16-2024 Iv infusion therapy/prophylaxis /dx 1st to 1 hr THER/PROPH/DIAG IV INF INIT [facility] Start: 10-16-2024 Patient discharge [facility] Start: 10-12-2024 End: 10-12-2024 ambulatory 10/12/2024 10:00 AM EDT Procedure Pediatric Cardiology [address] [place] [address] Pamela Haskins MD [address] [place] [address] FU echo Pediatric Cardiology Comment on above: FU echo Start: 10-12-2024 End: 10-12-2024 Patient encounter procedure 10/12/2024 10:00 AM EDT Office Visit Pediatric Cardiology [address] [place] [address] FU echo Pediatric Cardiology Comment on above: FU echo Start: 10-04-2024 End: 01-03-2025 Bacteria identified in Urine by Culture [facility] Comment on above: Expected: 10/04/2024 , Expires: 01/03/2025 Start: 10-04-2024 End: 01-03-2025 Protein/Creatinine [Mass Ratio] in Urine [facility] Comment on above: Expected: 10/04/2024 , Expires: 01/03/2025 Start: 10-04-2024 End: 10-04-2024 Patient encounter procedure [facility]aternal [facility] Comment on above: Gr=[facility] OB Start: 09-24-2024 End: 09-24-2024 Patient encounter procedure 09/24/2024 3:15 PM EDT Routine Office Visit OB/Gynecology [address] [place], [place] [id number] Leonie Waldron APRN.CN [address] [place] [address] Supervision of high risk in second trimester (HCC) (Primary Dx); 27 weeks gestation of (HCC); Burning with urination; Vaginal discharge OB/Gynecology Comment on above: Supervision of high risk in second trimester (HCC) (Primary Dx); 27 weeks gestation of (HCC); Burning with urination; Vaginal discharge Start: 09-24-2024 Obstetric monitoring [facility] Start: 09-24-2024 [facility] Start: 09-24-2024 Vital signs measurements [facility] Start: 09-24-2024 Patient discharge [facility] Start: 09-20-2024 End: 09-20-2024 Patient encounter procedure 09/20/2024 1:40 PM EDT Office Visit Endocrinology [address] [place], [place] [phone] Kelsy Guillermo, DO [address] [place] [address] see me in 7 weeks for f/u. Endocrinology Comment on above: see me in 7 weeks fo r f/u. Start: 09-07-2024 End: 09-07-2024 Patient encounter procedure [facility]aternal [facility] Comment on above: Growth OB Routine Start: 09-05-2024 Hemoglobin A1c measurement Diabetes: Hemoglobin A1C [facility] Start: 09-02-2024 End: 09-02-2024 Patient encounter procedure 09/02/2024 11:00 AM EDT Routine Office Visit [facility] [address] [place] [address] Growth [facility] Comment on above: Growth Start: 08-24-2024 End: 08-24-2024 ambulatory 08/24/2024 1:00 PM EDT Procedure Pediatric Cardiology [address] [place] [address] Pamela Haskins MD [address] [place], [place] [id number] Pre-existing type 2 diabetes mellitus in in first trimester [O24.111] Pediatric Cardiology Comment on above: Pre-existing type 2 diabetes mellitus in in first trimester [O24.111] Start: 08-24-2024 End: 08-24-2024 Patient encounter procedure 08/24/2024 1:00 PM EDT Office Visit Pediatric Cardiology [address] [place] [address] Pre-existing type 2 diabetes mellitus in in first trimester [O24.111] Pediatric Cardiology Comment on above: Pre-existing type 2 diabetes mellitus in in first trimester [O24.111] Start: 08-10-2024 End: 08-10-2024 Patient encounter procedure [facility] Comment on above: Anatomy Scan anatomy / mfm OB Routine Start: 08-03-2024 Hemoglobin A1c measurement Diabetes: Hemoglobin A1C [facility] Start: 07-26-2024 End: 07-26-2024 Patient encounter procedure 07/26/2024 2:00 PM EST Office Visit Endocrinology [address] [place] [address] Kelsy Guillermo DO [address] [place] [address] 8 weeks v/u Endocrinology Comment on above: 8 weeks v/u Start: 07-13-2024 End: 07-13-2025 OBSTETRIC ULTRASOUND WHI OBSTETRIC ULTRASOUND WHI Anc Imaging Routine Encounter for anatomic survey Expected: 07/13/2024, Expires: 07/13/2025 [facility] Work Phone: Comment on above: Expected: 07/13/2024 , Expires: 07/13/2025 Start: 07-13-2024 End: 07-13-2024 Patient encounter procedure [facility] Comment on above: Early Anatomy Scan OB Routine Start: 07-12-2024 End: 07-12-2024 Patient encounter procedure 07/12/2024 10:00 AM EST Office Visit OB/Gynecology [address] [place], [place] [id number] Lucy Mariscal APRN.C[employer] [address] [place], [place] [id number] ANNUAL OB/Gynecology Comment on above: ANNUAL Start: 06-16-2024 End: 06-16-2024 ambulatory 06/16/2024 10:00 AM EST [facility] Endocrinology [address] [place] [address] [place] [address] [place], [place] [phone] see warehouse laborer (Carrie Larsen) virtual visit Endocrinology Comment on above: see warehouse laborer (Hiral Larsen) virtual visit Start: 06-15-2024 End: 09-14-2024 Chromosome 21 trisomy [Presence] in Blood or Tissue by Cytogenetics [facility] Work Phone: Comment on above: Expected: 06/15/2024 , Expires: 09/14/2024 Start: 06-15-2024 End: 06-15-2024 Patient encounter procedure Maternal Medicine Comment on above: Nuchal/ Consult to M FM Start: 06-09-2024 Medicare Advantage Annual Wellness Visit Medicare Advantage Annual Wellness Visit [facility] Start: 06-08-2024 End: 06-08-2024 Patient encounter procedure 06/08/2024 1:10 PM EST Routine Office Visit OB/Gynecology [address] [place], [place] [address] Piper Julian MD [address] [place], [place] [phone] New Ob LMP 03/13/2024 OB/Gynecology Comment on above: New Ob LMP 03/13/2024 Start: 06-07-2024 End: 06-07-2024 Patient encounter procedure 06/07/2024 2:20 PM EST Office Visit Endocrinology [address] [place] [address] Kelsy Guillermo, DO [address] [place] [address] see me in 4 weeks (virtual visit) Endocrinology Comment on above: see me in 4 weeks (v irtual visit) Start: 05-26-2024 End: 05-26-2024 Patient encounter procedure 05/26/2024 10:10 AM EST Routine Office Visit OB/Gynecology [address] [place], [place] [phone] Krys Kulkarni MD [address] [place] [address] Previous MFM records in JG chart prep folder OB/Gynecology Comment on above: Previous MFM records in JG chart prep folder Start: 05-07-2024 End: 08-06-2024 ANEMIA REFLEX PANEL [facility] Work Phone: Comment on above: Expected: 05/07/2024 , Expires: 08/06/2024 Start: 05-07-2024 End: 08-06-2024 CARRIER SCREEN, STANDARD [facility] Comment on above: Expected: 05/07/2024 , Expires: 08/06/2024 Start: 05-07-2024 End: 08-06-2024 Hepatitis B virus surface Ag [Presence] in Serum [facility] Comment on above: Expected: 05/07/2024 , Expires: 08/06/2024 Start: 05-07-2024 End: 08-06-2024 Hepatitis C virus Ab [Presence] in Serum [facility] Comment on above: Expected: 05/07/2024 , Expires: 08/06/2024 Start: 05-07-2024 End: 08-06-2024 HIV 1+2 Ab [Presence] in Serum or Plasma by Immunoassay [facility] Comment on above: Expected: 05/07/2024 , Expires: 08/06/2024 Start: 05-07-2024 End: 05-07-2025 NUCHAL TRANSLUCENCY WHI NUCHAL TRANSLUCENCY WHI Anc Imaging Routine with uncertain dates in first trimester Expected: 05/07/2024, Expires: 05/07/2025 [facility] Comment on above: Expected: 05/07/2024 , Expires: 05/07/2025 Start: 05-07-2024 End: 05-07-2025 OBSTETRIC ULTRASOUND WHI OBSTETRIC ULTRASOUND WHI Anc Imaging Routine with uncertain dates in first trimester Expected: 05/07/2024, Expires: 05/07/2025 [facility] Comment on above: Expected: 05/07/2024 , Expires: 05/07/2025 Start: 05-07-2024 End: 08-06-2024 Protein/Creatinine [Mass Ratio] in Urine [facility] Comment on above: Expected: 05/07/2024 , Expires: 08/06/2024 Start: 05-07-2024 End: 08-06-2024 RUBELLA IGG ANTIBODY [facility] Comment on above: Expected: 05/07/2024 , Expires: 08/06/2024 Start: 05-07-2024 End: 08-06-2024 SYPHILIS TREPONEMAL W/REFLEX [facility] Comment on above: Expected: 05/07/2024 , Expires: 08/06/2024 Start: 05-07-2024 End: 08-06-2024 Thyrotropin [Units/volume] in Serum or Plasma [facility] Comment on above: Expected: 05/07/2024 , Expires: 08/06/2024 Start: 05-07-2024 End: 08-06-2024 TYPE + SCREEN [facility] Comment on above: Expected: 05/07/2024 , Expires: 08/06/2024 Start: 05-07-2024 End: 05-07-2024 Patient encounter procedure OB/Gynecology Comment on above: New Ob LMP 03/13/2024 Start: 05-04-2024 End: 05-04-2024 Patient encounter procedure 05/04/2024 2:20 PM EST Office Visit [facility] [address] [place] [id number] Jamari Byrne MD [address] [facility], [address] [place] [address] [facility] Start: 05-03-2024 End: 05-03-2024 Patient encounter procedure 05/03/2024 2:40 PM EST Office Visit Endocrinology [address] [place], [place] [id number] Kelsy Guillermo, [address] [place] [address] Insulin controlled gestational diabetes mellitus (GDM) in first trimester [O24.414] Endocrinology Comment on above: Insulin controlled g estational diabetes mellitus (GDM) in first trimester [O24.414] Start: 03-17-2024 Hemoglobin A1c measurement Diabetes: Hemoglobin A1C [facility] Start: 02-14-2024 Glaucoma screening Diabetes: R etinopathy Screening [facility] Start: 02-08-2024 Covid-19 Vaccine ( season) Covid-19 Vaccine ( season) [facility] Start: 02-08-2024 Influenza vaccination [facility] Start: 01-23-2024 End: 04-24-2024 Hemoglobin A1c/Hemoglobin.total in Blood Hemoglobin A1C Lab Routine Hyperglycemia due to diabetes mellitus (Multi) Expected: 01/23/2024 (Approximate), Expires: 04/24/[address] [facility] Service Area Work Phone: Comment on above: Expected: 01/23/2024 (Approximate), Expires: 04/24/2024 Start: 12-24-2023 End: 12-24-2023 Patient encounter procedure 12/24/2023 11:20 AM EDT Office Visit [facility] [address] [place] [address] Jamari Byrne MD [address] [facility] [place] [address] [facility] Start: 09-15-2023 End: 09-15-2023 Patient encounter procedure 09/15/2023 10:20 AM EDT Office Visit [facility] [address] [place] [phone] Jamari Byrne MD [address] [facility], [address] [place] [address] [facility] Start: 09-08-2023 End: 07-10-2024 Basic metabolic 2000 panel - Serum or Plasma Basic Metabolic Panel Lab Routine Hyperglycemia due to diabetes mellitus ([facility]/HCC) Expected: 09/08/2023 (Approximate), Expires: 07/10/[address] [facility] Service Area Work Phone: Comment on above: Expected: 09/08/2023 (Approximate), Expires: 07/10/2024 Start: 09-08-2023 End: 07-10-2024 Hemoglobin A1c/Hemoglobin.total in Blood Hemoglobin A1C Lab Routine Hyperglycemia due to diabetes mellitus (CMS/HCC) Expected: 09/08/2023 (Approximate), Expires: 07/10/2024 [facility] Work Phone: Comment on above: Expected: 09/08/2023 (Approximate), Expires: 07/10/2024 Start: 07-10-2023 End: 05-09-2024 Basic metabolic 2000 panel - Serum or Plasma Basic Metabolic Panel Lab Routine Hyperglycemia due to diabetes mellitus (CMS/HCC) Expected: 07/10/2023, Expires: 05/09/2024 [facility] Work Phone: Comment on above: Expected: 07/10/2023 , Expires: 05/09/2024 Start: 07-10-2023 End: 05-09-2024 Hemoglobin A1c/Hemoglobin.total in Blood Hemoglobin A1C Lab Routine Hyperglycemia due to diabetes mellitus ([facility]/HCC) Expected: 07/10/2023 (Approximate), Expires: 05/09/[address] [facility] Service Area Work Phone: Comment on above: Expected: 07/10/2023 (Approximate), Expires: 05/09/2024 Start: 07-10-2023 End: 07-10-2023 Patient encounter procedure 07/10/2023 10:20 AM EST Office Visit [facility] [address] [place] [phone] Jamari Byrne MD [address] [facility] [address] [place] [address] [facility] Start: 06-11-2023 Hemoglobin A1c measurement Diabetes: Hemoglobin A1C [facility] Start: 06-09-2023 Depression Assessment Depression Ass [facility] Start: 04-23-2023 End: 04-23-2023 Patient encounter procedure 04/23/2023 10:20 AM EST Office Visit [facility] [address] [place] [address] Jamari Byrne MD [address] [facility], [address] [place] [address] [facility] Start: 03-15-2023 End: 12-14-2023 Hemoglobin A1c/Hemoglobin.total in Blood Hemoglobin A1C Lab Routine Hyperglycemia due to diabetes mellitus (CMS/HCC) Expected: 03/15/2023 (Approximate), Expires: 12/14/[address] [facility] Service Area Work Phone: Comment on above: Expected: 03/15/2023 (Approximate), Expires: 12/14/2023 Start: 03-05-2023 Hemoglobin A1c measurement Diabetes: Hemoglobin A1C [facility] Start: 02-08-2023 Ophthalmic examinati on and evaluation Diabetes: Retinopathy Screening [facility] Start: 02-07-2023 Covid-19 Vaccine ( season) Covid-19 Vaccine ( season) [facility] Start: 02-07-2023 Influenza vaccination Influenz a Vaccine (#1) [facility] Start: 11-27-2022 Patient encounter procedure ANNUAL, Provider: Jeanie Sutton, Status: Humberto, Time: 8:30 AM [facility] Phone: Start: 11-26-2022 History and physical examination, annual for health maintenance Wellness Visit [facility] Start: 08-22-2022 FUV, Provider: Jamari Byrne, Status: Pen, Time: 11:20 AM FUV, Provider: Jamari Byrne, Status: Pen, Time: 11:20 AM [facility] Work Phone: Start: 08-03-2022 Hepatitis B surface antibody level LDL Cholesterol [facility] Start: 08-03-2022 Urine screening for protein [facility] Start: 02-22-2022 FUV, Provider: Jamari Byrne, Status: Pen, Time: 8:40 AM FUV, Provider: Jamari Byrne, Status: Pen, Time: 8:40 AM [facility] Work Phone: Start: 02-07-2022 Influenza vaccination Sequenti al Influenza Vaccine (#1) [facility] Start: 12-25-2021 FUV, Provider: Jeanie Sutton, Status: Pen, Time: 8:45 AM FUV, Provider: Jeanie Sutton, Status: Pen, Time: 8:45 AM [facility] [facility] Work Phone: Start: 12-17-2021 FUV, Provider: Jeanie Sutton, Status: Pen, Time: 9:15 AM FUV, Provider: Jeanie Sutton, Status: Pen, Time: 9:15 AM [facility] Work Phone: Start: 10-31-2021 Hemoglobin A1c measurement A1C [facility] Start: 04-05-2021 FUV, Provider: Rich Ng, Status: Pen, Time: 10:20 AM FUV, Provider: Rich Ng, Status: Pen, Time: 10:20 AM [facility] Work Phone: Start: 01-04-2021 FUV, Provider: Rich Ng, Status: Pen, Time: 10:20 AM FUV, Provider: Rich Ng, Status: Pen, Time: 10:20 AM [facility] Work Phone: Start: 12-13-2020 Patient encounter procedure [facility] [place] Start: 11-08-2020 End: 11-08-2020 Office Visit 11/08/2020 Office Visit Neurology Srini Medina MD [address] [place], [place] [phone] [facility] Start: 10-11-2020 Urine microalbumin profile DTaP,Tdap,Td Vaccine (7 - Td or Tdap) [facility] Start: 10-07-2020 Depression Remission Assessment (PHQ9) Depression Remission Assessment (PHQ9) [facility] Start: 02-23-2020 Albumin DL <= 20 mg/ L (U) [Mass/Vol] URINE MICROALBUMIN [facility] Start: 02-23-2020 Hepatitis B screening Urine Albumin:Creatinine Ratio [facility] Start: 02-17-2020 End: 02-17-2020 Office Visit 02/17/2020 Office Visit Neurology Srini Medina MD [address] [place], [place] [phone] [facility] Start: 02-08-2020 Influenza vaccinatio n given Sequential Influenza Vaccine (#1) [facility] Start: 12-23-2019 Depression Remission Assessment (PHQ9) Depression Remission Assessment (PHQ9) [facility] Start: 10-21-2019 Localize cerebral seizure cptr portable eeg EEG: Ambulatory outpatient [facility] Work Phone: Start: 10-21-2019 CT Head withou t Contrast [facility] Work Phone: Start: 08-23-2019 HbA1c (Bld) [Mass fraction] A1C [facility] Start: 07-09-2019 Screening for malign ant neoplasm of cervix [facility] Start: 05-24-2019 End: 05-24-2019 Office Visit 05/24/2019 Office Visit Primary Care Verona Hilliard MD [address] [place] [address] [facility] Start: 05-06-2019 Screening for malign ant neoplasm of cervix PAP SMEAR [facility] Start: 02-07-2019 Influenza vaccination INFLUENZ A VACCINE (Season Ended) [facility] Start: 02-07-2019 Influenza vaccinatio n given SEQUENTIAL INFLUENZA VACCINE (#1) [facility] Start: 11-02-2018 HbA1c (Bld) [Mass fraction] A1C [facility] Start: 02-07-2018 Influenza vaccinatio n given SEQUENTIAL INFLUENZA VACCINE (#1) [facility] Start: 02-26-2017 Albumin DL <= 20 mg/ L (U) [Mass/Vol] URINE MICROALBUMIN [facility] Start: 2017 DTaP/Tdap/Td Vaccine s (1 - Tdap) DTaP/Tdap/Td Vaccines (1 - Tdap) [facility] Start: 01-28-2016 Screening for malign ant neoplasm of cervix [facility] Start: 11-22-2014 Pneumococcal vaccination Pneumococcal Vaccine (2 of 2 - PCV) [facility] Start: 2014 Hepatitis A Vaccines (1 of 2 - Risk 2-dose series) Hepatitis A Vaccines (1 of 2 - Risk 2-dose series) [facility] Start: 2014 Hepatitis B Vaccines (1 of 3 - 19+ 3-dose series) Hepatitis B Vaccines (1 of 3 - 19+ 3-dose series) [facility] Start: 2014 Pneumococcal Vaccine : Pediatrics and At-Risk Adult Patients (1 of 2 - PCV) Pneumococcal Vaccine: Pediatrics and At-Risk Adult Patients (1 of 2 - PCV) [facility] Start: 2014 Third diphtheria, tetanus and acellular pertussis (DTaP) vaccination TDAP (ADULT) [facility] Start: 2014 Zoster Vaccines (1 o f 2) Zoster Vaccines (1 of 2) [facility] Start: 2013 Annual PCP Team Supervisor Compressed Yeast andres Disease Visit Annual PCP Team Chronic Disease Visit [facility] Start: 2013 Anxiety Screening Anxiety Screening [facility] Start: 2013 Depression Screening Depression Scre ening [facility] Start: 2013 Hepatitis C antibody , confirmatory test Hepatitis C Screening [facility] Start: 2013 Hepatitis C screening Hepatitis C Sc reening [facility] Start: 2013 HIV screening HIV Screening [facility] Start: 2013 Tetanus vaccination TETANUS [facility] Start: 2011 COVID-19 Vaccine (1 of 2) COVID-19 Vaccine (1 of 2) [facility] Start: 2011 Screening for Chlamy clara trachomatis CHLAMYDIA SCREEN [facility] Start: 2010 HIV screening HIV Screening [facility] Start: 2010 Vaccination for agusto n papillomavirus [facility] Start: 06-09-2009 [facility] Start: 01-28-2008 HIV screening HIV SCREENING DISCUSSION [facility] Start: 01-28-2008 Varicella vaccination Varicell a Vaccines (1 of 2 - 13+ 2-dose series) [facility] Start: 2006 Vaccination for agusto n papillomavirus HPV Vaccines (1 - 2-dose series) [facility] Start: 2005 Diabetic foot examination [facility] Start: 2005 Glaucoma screening [facility] Start: 2005 Ophthalmic examinati on and evaluation Ophthalmology Exam [facility] Start: 2001 Pneumococcal Vaccine : Ped or At-Risk (1 - PCV) Pneumococcal Vaccine: Ped or At-Risk (1 - PCV) [facility] Start: 2001 Pneumococcal Vaccine : Pediatrics (0 to 5 Years) and At-Risk Patients (6 to 64 Years) (1 - PCV) Pneumococcal Vaccine: Pediatrics (0 to 5 Years) and At-Risk Patients (6 to 64 Years) (1 - PCV) [facility] Start: 2001 Pneumococcal Vaccine : Pediatrics (0 to 5 Years) and At-Risk Patients (6 to 64 Years) (1 of 2 - PCV) Pneumococcal Vaccine: Pediatrics (0 to 5 Years) and At-Risk Patients (6 to 64 Years) (1 of 2 - PCV) [facility] Start: 01-28-2000 COVID-19 Vaccine (#1) COVID-19 Vacci ne (#1) [facility] Start: 1998 History and physical examination, annual for health maintenance Wellness Visit [facility] Start: 01-28-1996 MMR Vaccines (1 of 1 - Standard series) MMR Vaccines (1 of 1 - Standard series) [facility] Start: 01-28-1996 Varicella vaccination Varicell a Vaccines (1 of 2 - 2-dose childhood series) [facility] Start: 1995 COVID-19 Vaccine (#1) COVID-19 Vacci ne (#1) [facility] Start: 1995 Depression screening using PHQ-9 (Patient Health Questionnaire 9) score DEPRESSION SCREENING (PHQ9) [facility] Start: 1995 GONORRHEA SCREEN [facility] Start: 1995 Hepatitis B Vaccines (1 of 3 - 3-dose series) Hepatitis B Vaccines (1 of 3 - 3-dose series) [facility] Start: 1995 Lipid panel Lipid Panel [facility] Start: 1995 Medicare Annual Wellness Visit Medicare Annual Wellness Visit (AWV) [facility] Start: 1995 Screening for Chlamy clara trachomatis Chlamydia Screening [facility] End: 04-18-2024 Bacteria identified in Urine by Culture [facility] Work Phone: Comment on above: Once (Lab) for 1 Occ urrences starting 04/18/2024 until 04/18/2024 Bacteria identified in Urine by Culture URINE CULTURE Microbiology Routine with uncertain dates in first trimester 05/07/2024 10:24 AM [facility] Bacteria identified in Urine by Culture BACTERIAL CULTURE, URINE Microbiology Routine Burning with urination 09/24/2024 9:17 AM EDT [facility] Work Phone: BACTERIAL VAGINOSIS NAAT BACTERIAL VAGINOSIS NAAT Lab Routine Vaginal discharge during in first trimester 05/07/2024 10:24 AM EST [facility] BACTERIAL VAGINOSIS NAAT BACTERIAL VAGINOSIS NAAT Lab Routine Vaginal discharge 09/24/2024 9:17 AM EDT [facility] BACTERIAL VAGINOSIS NAAT BACTERIAL VAGINOSIS NAAT Lab Routine Vaginal itching Ordered: 11/18/2024 [facility] Work Phone: Comment on above: Ordered: 11/18/2024 End: 01-03-2025 BIOPHYSICAL PROFILE US WHI BIOPHYSICAL PROFILE US I Anc Imaging Routine Supervision of high risk in third trimester ([facility]) Pre-existing type 2 diabetes mellitus in in first trimester ([facility]) Once per week for 10 Occurrences starting 10/05/2024 until 01/03/2025 [facility] Comment on above: Once per week for 10 Occurrences starting 10/05/2024 until 01/03/2025 JOSUÉ/TRICHOMONAS NAAT JOSUÉ/TRICHOMONAS NAAT Lab Routine Vaginal discharge during in first trimester 05/07/2024 10:24 AM EST [facility] JOSUÉ/TRICHOMONAS NAAT JOSUÉ/TRICHOMONAS NAAT Lab Routine Vaginal discharge 09/24/2024 9:17 AM EDT [facility] JOSUÉ/TRICHOMONAS NAAT JOSUÉ/TRICHOMONAS NAAT Lab Routine Vaginal itching Ordered: 11/18/2024 [facility] Comment on above: Ordered: 11/18/2024 Cast care: wet Wet prep, genita l Microbiology Routine Vaginal discharge Ordered: 08/17/2022 [facility] Work Phone: Comment on above: Ordered: 08/17/2022 End: 12-08-2020 Ceruloplasmin measurement Ceruloplasmin Lab Routine Seizure ([facility]) 1 Occurrences starting 12/08/2019 until 12/08/2020 [facility] Comment on above: 1 Occurrences starti ng 12/08/2019 until 12/08/2020 Ceruloplasmin measurement Ceruloplasmin Lab Routine Seizure ([facility]) 12/08/2019 8:42 AM EDT [facility] Chlamydia trachomati s rRNA assay Chlamydia/GC/Trichomo savannah Amplified RNA Microbiology Routine Vaginal discharge Ordered: 08/17/2022 [facility] Comment on above: Ordered: 08/17/2022 Chlamydia trachomatis+Neisseria gonorrhoeae DNA [Presence] in Unspecified specimen by SUMIT with probe detection GONORRHEA/CHLAMYDIA NAAT Lab Routine with uncertain dates in first trimester 05/07/2024 10:24 AM [facility] End: 10-04-2025 ECG COMPLETE ECG COMPLETE ECG Routine History of pre-eclampsia 29 weeks gestation of ([facility]) Pre-existing type 2 diabetes mellitus in in third trimester ([facility]) Supervision of high risk in third trimester ([facility]) 1 Occurrences starting 10/04/2024 until 10/04/2025 [facility] Work Phone: Comment on above: 1 Occurrences starti ng 10/04/2024 until 10/04/2025 End: 06-15-2025 ECHO ECHO Cardiology Routine Pre-existing type 2 diabetes mellitus in in first trimester 1 Occurrences starting 06/15/2024 until 06/15/2025 [facility] Comment on above: 1 Occurrences starti ng 06/15/2024 until 06/15/2025 End: 04-18-2024 Extra Urine [place] [facility] Extra Urine [place] [facility] Lab Timed Once for 1 Occurrences starting 04/18/2024 until 04/18/2024 [facility] Work Phone: Comment on above: Once for 1 Occurrenc es starting 04/18/2024 until 04/18/2024 End: 05-21-2024 Extra Urine [place] T[facility] Work Phone: Comment on above: Once for 1 Occurrenc es starting 05/21/2024 until 05/21/2024 End: 01-02-2025 nonstress test NON-STRESS TEST Procedures Routine History of pre-eclampsia 29 weeks gestation of ([facility]) Pre-existing type 2 diabetes mellitus in in third trimester ([facility]) Supervision of high risk in third trimester ([facility]) 2x per week for 16 Occurrences starting 10/04/2024 until 01/02/2025 [facility] Comment on above: 2x per week for 16 O ccurrences starting 10/04/2024 until 01/02/2025 Hemoglobin A1c/Hemoglobin.total in Blood HEMOGLOBIN A1C (POC) Lab Routine 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, 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, 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 oil heaterman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 ([facility]) Ordered: 01/20/2025 [facility] Work Phone: Comment on above: Ordered: 01/20/2025 Neisseria gonorrhoea e nucleic acid detection Chlamydia/Gonorrhoeae Amplified RNA Microbiology Routine Vaginal discharge Ordered: 08/17/2022 [facility] Comment on above: Ordered: 08/17/2022 End: 12-08-2020 Nuclear Ab IF (S) [Titer] NICOLE Lab Routine Seizure ([facility]) 1 Occurrences starting 12/08/2019 until 12/08/2020 [facility] Comment on above: 1 Occurrences starti ng 12/08/2019 until 12/08/2020 Nuclear Ab IF (S) [Titer] NICOLE Lab Routine Seizure ([facility]) 12/08/2019 8:42 AM EDT [facility] End: 11-26-2024 OBSTETRIC ULTRASOUND WHI OBSTETRIC ULTRASOUND [facility]I Anc Imaging Routine Obesity affecting in first trimester, unspecified obesity type Pre-existing type 2 diabetes mellitus in in first trimester Once per month for 4 Occurrences starting 08/10/2024 until 11/26/2024 [facility] Work Phone: Comment on above: Once per month for 4 Occurrences starting 08/10/2024 until 11/26/2024 PAP TEST PAP TEST Lab Minerva arellano Encounter for supervision of high risk in first trimester, antepartum Screening for cervical cancer 05/07/2024 10:48 AM [facility] Patient Education [facility] Work Phone: Patient referral [facility] Work Phone: End: 12-08-2020 Reagin Ab RPR Ql (S) RPR Lab Routine Seizure ([facility]) 1 Occurrences starting 12/08/2019 until 12/08/2020 [facility] Comment on above: 1 Occurrences starti ng 12/08/2019 until 12/08/2020 Reagin Ab RPR Ql (S) RPR Lab Rou eileen Seizure ([facility]) 12/08/2019 8:42 AM EDT [facility] Trichomonas vaginali s Amplified RNA Trichomonas vaginalis Amplified RNA Microbiology Routine Vaginal discharge Ordered: 08/17/2022 [facility] Comment on above: Ordered: 08/17/2022 End: 04-18-2024 Urinalysis complete W Reflex Culture panel - Urine [facility] Service Area Work Phone: Comment on above: Once (Lab) for 1 Occ urrences starting 04/18/2024 until 04/18/2024 End: 05-21-2024 Urinalysis complete W Reflex Culture panel - Urine [facility] Service Area Work Phone: Comment on above: Once (Lab) for 1 Occ urrences starting 05/21/2024 until 05/21/2024 Urine culture [facility] Urine culture [facility] URINE OB DIP B/O URINE OB DIP B/ O Lab Routine Pre-existing type 2 diabetes mellitus in in third trimester (HCC) Supervision of high risk in third trimester (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) 38 weeks gestation of ([facility]) Ordered: 12/06/2024 [facility] Work Phone: Comment on above: Ordered: 12/06/2024 [facility] NEGATED: Highlighted row has been ruled out! Planned Goals not documented [facility] Work Phone: Immunizations Immunization Date Immunization Notes Care Provider [facility] 10-04-2024 tetanus toxoid, redu vicki diphtheria toxoid, and acellular pertussis vaccine, adsorbed Piper Julian MD Work Phone: [facility] 03-27-[address] Jamari Byrne MD Work Phone: [facility] 03-27-2016 influenza virus vacc ine, unspecified formulation [facility] 11-22-2013 pneumococcal polysaccharide vaccine, 23 valent Piper Julian MD Work Phone: [facility] 03-29-2013 influenza, seasonal, injectable Piper Julian MD Work Phone: [facility] 03-29-2013 influenza virus vacc ine, unspecified formulation Mary GOODWIN Work Phone: [facility] 09-17-2012 hepatitis A vaccine, pediatric/adolescent dosage, 2 dose schedule Piper Julian MD Work Phone: [facility] 01-30-2012 hepatitis A vaccine, pediatric/adolescent dosage, 2 dose schedule Piper Julian MD Work Phone: [facility] 10-11-2010 HPV, unspecified formulation Piper Julian MD Work Phone: [facility] 10-11-2010 tetanus toxoid, redu vicki diphtheria toxoid, and acellular pertussis vaccine, adsorbed Piper Julian MD Work Phone: [facility] 11-05-2007 human papilloma viru s vaccine, quadrivalent Piper Julian MD Work Phone: [facility] 09-03-2007 HPV, unspecified formulation Piper Julian MD Work Phone: [facility] 09-03-2007 meningococcal polysaccharide vaccine (MPSV4) Piper Julian MD Work Phone: [facility] 11-27-2000 diphtheria, tetanus toxoids and acellular pertussis vaccine, unspecified formulation Piper Julian MD Work Phone: [facility] 11-27-2000 measles, mumps and rubella virus vaccine Piper Julian MD Work Phone: [facility] 06-09-1999 HPV, unspecified formulation [facility] 03-05-1999 haemophilus influenz ae type b vaccine, conjugate unspecified formulation Piper Julian MD Work Phone: [facility] 03-05-1999 trivalent poliovirus vaccine, live, oral Piper Julian MD Work Phone: [facility] 02-15-1998 diphtheria, tetanus toxoids and acellular pertussis vaccine, unspecified formulation Piper Julian MD Work Phone: [facility] 07-26-1997 diphtheria, tetanus toxoids and pertussis vaccine Piper Julian MD Work Phone: [facility] 07-26-1997 haemophilus influenz ae type b vaccine, conjugate unspecified formulation Piper Julian MD Work Phone: [facility] 07-26-1997 trivalent poliovirus vaccine, live, oral Piper Julian MD Work Phone: [facility] 04-26-1997 diphtheria, tetanus toxoids and pertussis vaccine Piper Julian MD Work Phone: [facility] 04-26-1997 haemophilus influenz ae type b vaccine, conjugate unspecified formulation Piper Julian MD Work Phone: [facility] 04-26-1997 measles, mumps and rubella virus vaccine Piper Julian MD Work Phone: [facility] 04-26-1997 trivalent poliovirus vaccine, live, oral Piper Julian MD Work Phone: [facility] 01-14-1996 DTP-Haemophilus influenzae type b conjugate vaccine Piper Julian MD Work Phone: [facility] 01-14-1996 hepatitis B vaccine, pediatric or pediatric/adolescent dosage Piper Julian MD Work Phone: [facility] 01-14-1996 trivalent poliovirus vaccine, live, oral Piper Julian MD Work Phone: [facility] 1995 hepatitis B vaccine, adult dosage Piper Julian MD Work Phone: [facility] 1995 hepatitis B vaccine, adult dosage Piper Julian MD Work Phone: [facility] Payers Date Payer Category Payer Unknown [id number] 2024 Medicare (Managed Care) [facility] MEDICARE [id number] 2024 Self-pay 2023 Medicare [id number] 2022 Dual Eligibility Medicare/Medicaid Organization [id number] 2022 Medicaid [id number] .[id number] 2021 Medicare [id number] 2019 Unknown 2016 Medicaid [id number] 2016 Unknown [id number] 2016 Medicaid [id number] 2016 Medicaid [employer] [facility] MEDICA[employer]ID [id number] 2016-Present [id number] .[id number] 2016 Unknown [id number] [id number] .7.3.209642.315 1995 Unknown [id number] 2.16.840.1.517695.3.579.2 .479 1995 Unknown [id number] 2.16.840.1.275446.3.579.2 .479 1995 Unknown [id number] 2.16.840.1.782698.3.579.2 .900 1995 Unknown [id number] 2.16.840.1.457267.3.579.2 .903 1995 Unknown [id number] 2.16.840.1.134085.3.579.2 .903 1995 Unknown [id number] 2.16.840.1.950191.3.579.2 .903 1995 Unknown [id number] 2.16.840.1.229304.3.579.2 .903 1995 Unknown [id number] 2.16.840.1.182155.3.579.2 .903 1995 Unknown [id number] 2.16.840.1.865967.3.579.2 .903 1995 Unknown [id number] 2.16.840.1.678568.3.579.2 .903 1995 Unknown [id number] 2.16.840.1.218319.3.579.2 .174 1995 Unknown [id number] 2.16.840.1.994537.3.579.2 .903 1995 Unknown [id number] 2.16.840.1.908655.3.579.2 .356 1995 Unknown [id number] 2.16.840.1.602599.3.579.2 .356 1995 Unknown [id number] 2.840.1.490486.3.579.2 .356 1995 Unknown [id number] 2.16840.1.191409.3.579.2 .356 1995 Unknown [id number] 2.840.1.590288.3.579.2 .356 1995 Unknown [id number] 2.840.1.683236.3.579.2 .356 1995 Unknown [id number] 2.840.1.404087.3.579.2 .651 1995 Unknown [id number] 2.840.1.408091.3.579.2 .651 1995 Unknown [id number] 2.840.1.733400.3.579.2 .124 1995 Unknown [id number] 2.840.1.564621.3.579.2 .1245 1995 Unknown [id number] 2.840.1.527740.3.579.2 .1244 1995 Unknown [id number] 2.840.1.676486.3.579.2 .1244 1995 Unknown [id number] 2.16840.1.268322.3.579.2 .124 1995 Unknown [id number] 2.16840.1.815372.3.579.2 .1244 1995 Unknown [id number] 2.840.1.886239.3.579.2 .1244 1995 Unknown [id number] 2.16840.1.743256.3.579.2 .1244 1995 Unknown [id number] 2.16840.1.304266.3.579.2 .1243 1995 Unknown [id number] 2.16.840.1.436596.3.579.2 .1243 1995 Unknown [id number] 2.16840.1.466419.3.579.2 .1243 Unknown [id number] Medicaid MEDICAID [facility] [id number] Effective for all dates [id number] 1.2.840.730298.1.13.385.2 .7.3.933237.315 Unknown [id number] 2.16840.1.934460.3.579.2 .462 Unknown [id number] 2.840.1.167315.3.579.2 .462 Unknown [id number] 2.16840.1.094102.3.579.2 .462 Unknown [id number] 2.16840.1.041924.3.579.2 .462 Unknown [id number] 2.16840.1.487066.3.579.2 .462 Unknown [id number] 2.16840.1.918008.3.579.2 .462 Unknown [id number] 2.840.1.548039.3.579.2 .462 Unknown [id number] 2.16840.1.394125.3.579.2 .462 Social History Date Type Detail Facility Start: 09-12-2018 End: 05-03-2024 Tobacco smoking status MAIS Current every day smoker [facility] Start: 12-24-2009 End: 06-03-2016 History of tobacco use Cigarette Smoker [facility] Start: 09-12-2018 End: 10-12-2024 Cigarettes smoked current (pack per day) - Reported [facility] Comment on above: 06/10 PPD; Start: 1995 Sex Assigned At Not on file [facility] Start: 02-10-2019 End: 08-17-2022 Alcohol intake Ex-drinker (finding) [facility] Start: 06-23-2016 Alcohol Comment rare [facility] Start: 12-08-2019 End: 05-03-2024 Tobacco use and exposure Never used [facility] Start: 08-07-2022 End: 09-06-2024 Exposure to SARS-CoV-2 (event) Not sure [facility] Tobacco smoking consumption unknown [facility] Start: 12-13-2022 End: 10-12-[address] [facility] Work Phone: Start: 1995 [facility] Start: 09-20-2022 Gender identity Identifies as female gender (finding) [facility] Work Phone: Start: 09-20-2022 Sexual orientation Bisexual (finding ) [facility] Work Phone: Start: 08-19-2023 End: 01-13-2025 Alcohol intake Current non-drinker of alcohol (finding) [facility] Start: 12-11-2016 National Score (1-100), lower number is lower risk 80 [facility] Start: 04-18-2024 End: 09-06-2024 Alcoholic beverage intake Lifetime non-drinker (finding) [facility] Work Phone: The thought of harming myself has occurred to me Never [facility] Start: 05-03-2024 Education 15 [facility] Start: 03-27-2024 [facility] Start: 05-28-2024 Sexual orientation Heterosexual (sammy pittman) [facility] Start: 09-06-2024 Tobacco Comment Smokes [address] [facility] Work Phone: Start: 09-24-2024 Sex Female (finding) [facility] NEGATED: Highlighted row - - [facility] Work Phone: Medical Equipment Procedure Code Equipment Code Equipment Origin al Text Equipment Identifier Dates [id number] Start: 05-05-2018 End: 05-04-2024 Inject 1 each as directed 2 (two) times a day as needed . [id number] Start: 05-05-2018 by Miscellaneous route daily as needed . [id number] Start: 02-22-2019 Inject 1 each as directed daily as needed . [id number] Start: 02-22-2019 Accu-Chek Soraya Plus In Vitro [...] 1 strip 1 (one) time each day. [id number] Start: 11-13-2021 1 (one) time each day. [id number] Inject nightly [id number] Start: 12-13-2022 End: 12-13-2023 Use to inject nightly [id number] Sta rt: 12-20-2022 End: 12-25-2023 Use with lantus pen 10 units at bedtime subcutaneous [id number] Start: 03-17-2023 Use to inject 4 times per day [id number] Start: 12-25-2023 End: 12-24-2024 4 times/day [id number] Start: 05-03-2024 Use with blood g lucose test four times a day. [id number] Start: 06-14-2024 End: 09-27-2024 Use with blood g lucose test four times a day. [id number] Start: 06-14-2024 End: 09-24-2024 Use as instructe d - TEST BLOOD SUGARS 4 TIMES DAILY [id number] Start: 08-03-2024 Use with blood g lucose test four times a day. Insulin Dep? Yes [id number] Start: 08-03-2024 End: 08-10-2024 Use with blood g lucose test four times a day. Insulin Dep? Yes [id number] Start: 08-10-2024 4 TIMES/DAY [id number] Start: 01-13-2025 Goals Date Patient Goal Desired Activity /State Personal health goal Functional Status Date Assessment Result Facility 12-21-2016 Are you deaf, or do you have serious difficulty hearing No 12/21/2016 10:45 AM Krys Du, BETSY No [facility] 12-21-2016 Are you blind, or do you have serious difficulty seeing, even when wearing glasses No 12/21/2016 10:45 AM Krys Du, BETSY No [facility] 12-21-2016 Do you have serious difficulty walking or climbing stairs No 12/21/2016 10:45 AM Krys Du, BETSY [facility] 12-21-2016 Do you have difficul ty dressing or bathing No 12/21/2016 10:45 AM Krys Du, BETSY [facility] 12-21-2016 Because of a physica l, mental, or emotional condition, do you have difficulty doing errands alone such as visiting a physician's office or shopping No 12/21/2016 10:45 AM Krys Du, RN [facility] NEGATED: Highlighted row Functional performance Functional status health issues are not documented Disease [employer] [facility] Work Phone: Mental Status Date Assessment Result Facility 12-16-2024 Cognitive function Level Of Cons ciousness Awake;[facility] Work Phone: 12-21-2016 Because of a physical, mental, or emotional condition, do you have serious difficulty concentrating, remembering, or making decisions No 12/21/2016 10:45 AM Krys Du, BETSY [facility] NEGATED: Highlighted row Cognitive function [Interpretation] Cognitive status health issues are not documented Disease [employer] Work Phone: Clinical Notes 01-01-2017 to 01-20-2025 Kelsy Guillermo, DO - 01/20/2025 11:00 AM EDTPatient InstructionsWhit Morton MD - 01/19/2025 1:56 PM EDTWhit Morton MD - 01/19/2025 1:56 PM EDT Note Date & Type Note Facility 01-20-2025 History of Presen t illness Narrative Reason for Consultation: post f/u -type 2 diabetes mellitus. Referring Physician: Dr Piper Julian MD My final recommendations will be communicated back to the requesting physician by way of shared Medical record or letter via US mail. HISTORY OF PRESENT ILLNESS 29 year old F presenting for post f/u- she delivered a 6lbs 9oz F () 12/2024- I followed her throughout this regarding type 2 diabetes mellitus. Pt has 7 year old daughter- had DM during that - had macrosomia, delivered in [place]. She was initially diagnosed with type 2 [...] Humalog 4 units prior to meals She required a significant amount of insulin during the - ultimately the following regimen: NPH 90 units at bedtime. Humalog 23 units prior to breakfast, 23 units prior to lunch, Humalog 26 units prior to dinner. Take an + additional 5 units with Higher carb meals After delivery- resumed the following: NPH 20 units at bedtime Humalog 8 units prior to meals (+5 units with higher carb meals) She has been taking the insulin as prescribed. She is candid that she is not always eating the best and doing the best she can while trying to manage the baby. 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 Exacerbating factors include: insulin resistance Current diabetes regimen is as follows: as above she is checking her blood glucose 4 times daily. BG in the 120's Hypoglycemia frequency: infrequent if at all. Hypoglycemia awareness: Yes Regarding symptoms of hypoglycemia, she is is not experiencing any symptoms such as polyuria, polydipsia, nocturia or rapid weight loss or blurry vision, She is bottle feeding. She is still 30 lbs from prepregnancy weight. PAST MEDICAL HISTORY Diagnosis Date Asthma ([facility]) Bipolar H/O macrosomia in infant in prior , currently ([facility]) 05/07/2024 Herpes simplex type 2 (HSV-2) infection affecting , antepartum, unspecified trimester ([facility]) 04/19/2024 Hyperlipidemia LGA (large for gestational age) ([facility]) 12/23/2016 12/23/16 - >95% Polyhydramnios ([facility]) 01/01/2017 Pre-existing type 2 diabetes mellitus in in first trimester ([facility]) 06/15/2024 First trimester Hgb A1c 10.5%, now follows with Dr. Guillermo Recurrent UTI Type 2 diabetes mellitus ([facility]) PAST SURGICAL HISTORY Procedure Laterality Date CHOLECYSTECTOMY [...] Heart Attack Paternal Grandmother Cancer Paternal Grandfather SOCIAL HISTORY[1] Allergies As of Date: 01/20/2025 Allergen Noted Reaction ALUMINUM-MAGNESIUM HYDROXIDE 02/05/2018 GI Upset ARIPIPRAZOLE 12/13/2022 Mental Status Change QUETIAPINE 10/04/2018 Other: See Comments and Shortness of Breath METOCLOPRAMIDE 02/10/2019 Vomiting, Hives, and Unknown PROMETHAZINE 07/11/2023 GI Upset ZOFRAN [ONDANSETRON] 07/11/2023 Vomiting ZOLOFT [SERTRALINE] 07/11/2023 Mental Status Change Fully Assessed 01/19/2025 Current Outpatient Medications Medication Sig Dispense Refill acyclovir (ZOVIRAX) 400 mg tablet Take 1 tablet by mouth two times a day. 60 tablet 3 Insulin [place], Disposable, (BD ULTRAFINE III MINI PEN) 31 gauge x 3/16 4 TIMES/DAY 200 each 3 insulin NPH (HUMULIN N NPH INSULIN KWIKPEN) 100 unit/mL (3 mL) injection pen 90 units at bedtime 45 mL 11 lancets ([employer] DELICA PLUS LANCET) 30 gauge Use with blood glucose test four times a day. Insulin Dep? Yes 100 Each 11 insulin lispro (HUMALOG KWIKPEN INSULIN) 100 unit/mL 23 -23 - 26 units prior to each meal respectively + scale (upto 100 units/day) 45 mL 11 blood sugar diagnostic ([employer] VERIO TEST STRIPS) test strip Use as instructed - TEST BLOOD SUGARS 4 TIMES DAILY 150 Each 11 Blood-Glucose Meter ([employer]UCH VERIO FLEX METER) Use to check blood glucose 4 times daily. 1 Each 0 busPIRone (BUSPAR) 15 mg tablet albuterol HFA (PROVENTIL HFA, VENTOLIN HFA) 90 mcg/actuation inhaler Inhale 2 Puffs as instructed every 6 hours as needed. VIT 10-IRON FUM-FOLIC ORAL Take by mouth. FLUoxetine (PROZAC) 40 mg capsule Take 20 mg by mouth. albuterol HFA (PROVENTIL HFA, VENTOLIN HFA) 90 mcg/actuation inhaler Inhale 2 Puffs as instructed. No current facility-administered medications for this visit. REVIEW OF SYSTEMS General: no fever and no chills- she is 30 lbs from prepregnancy Skin: no rashes, pruritis or dry skin Cardiac: denies chest pain, heart palpitations or orthopnea Pulmonary: denies wheezing, productive cough or exertional dyspnea PHYSICAL EXAMINATION BP 100/78 Pulse 91 Wt 94.2 kg (207 lb 10.8 oz) LMP 03/13/2024 BMI 37.50 kg/m GENERAL: Alert, no distress, cooperative SKIN: Skin color, texture, turgor normal. No rashes or lesions. HEAD/SINUSES: No significant findings EYES: sclera non-icteric, EOMs intact. ABDOMEN: Normal abdominal exam EXTREMITIES: Normal exam of the extremities NEURO: AAO x 3, no focal deficits The remainder of the physical exam is noncontributory. DATA Latest Ref Rng 05/03/2024 06/07/2024 09/20/2024 Hemoglobin A1C (POCT) 4.3 - 5.6 % 10.5 ! 7.9 ! 5.2 IMPRESSION: 29 year old F presenting for post f/u- she delivered a 6lbs 9oz F () 12/2024- type 2 diabetes mellitus. RECOMMENDATIONS: 1. Glycemic control: Target HbA1C is less than 7.0% per ADA guidelines. This patient 1) check blood sugars fasting and before meals 2) for now- continue your current regimen: NPH 20 units at bedtime Humalog 8 units prior to meals (+5 units with higher carb meals) 3) let me know if your blood sugars are elevated in between visits 4) see me in six months- fasting blood work prior The patient was reminded to check her blood glucose as above. and to record the data in a logbook. She was advised to bring their logbook to each office visit. I recommended at least 150 minutes per week of moderate physical activity, such as walking and to reduce carbohydrates and overall caloric intake. 2. Hypertension/BP control: BP goal for patients with diabetes is 130/80. This patient is at target on their current regimen. 3. Lipids: Target LDL cholesterol in patients with diabetes is less than 100, less than 70 if patient has overt CVD. Several studies have shown cardiovascular benefits of statin therapy in all patients with diabetes over age 40 with at least 1 CVD risk factor. Will check fasting blood work, urine studies prior to f/u. 4. Antiplatelet therapy: Low dose antiplatelet therapy is recommended for patients with diabetes at increased cardiovascular risk. This includes most men over age 50 and most women over age 60. 5. Nephropathy screening: Annual measurement of urine albumin excretion is recommended in patients with diabetes. Will check fasting blood work, urine studies prior to f/u. 6. Ophthalmology: Annual dilated eye exams are recommended for patients with type 1 and type 2 diabetes. This patient has DR- just saw retina last week- states DR cortes , has f/u in May. The patient was asked to follow up with me in 6 months - fasting blood work prior. I spent a total of 30 minutes on the date of the service which included preparing to see the patient, [id number] patient care, completing clinical documentation, obtaining and/or reviewing separately obtained history, performing a medically appropriate examination, counseling and educating the patient/family/caregiver, and ordering medications, tests, or procedures. Kelsy Guillermo DO [1] Social History Tobacco Use Smoking status: Every Day Current packs/day: 0.50 Average packs/day: 0.5 packs/day for 14.0 years (7.0 ttl pk-yrs) Types: Cigarettes Smokeless tobacco: Never Vaping Use Vaping status: Never Used Substance Use Topics Alcohol use: No Drug use: No documented in this encounter [facility] 01-20-2025 Instructions Kelsy Guillermo DO - 01/20/2025 10:44 AM EDT 1) check blood sugars fasting and before meals 2) for now- continue your current regimen: NPH 20 units at bedtime Humalog 8 units prior to meals (+5 units with higher carb meals) 3) let me know if your blood sugars are elevated in between visits 4) see me in six months- fasting blood work prior documented in this encounter [facility] 01-19-2025 History and physical note Pre-Op History and Physical HPI: The patient is a 29 year old female presenting for pre-operative visit. She is scheduled for laparoscopic bilateral salpingectomy , for desires sterilization on 01/28/25. Procedure discussed along with risks, benefits and complications. Other alternatives discussed for management. Consent form signed? Yes. PAST MEDICAL HISTORY Diagnosis Date Asthma ([facility]) Bipolar H/O macrosomia in in prior , currently ([facility]) 05/07/2024 Herpes simplex type 2 (HSV-2) infection affecting , antepartum, unspecified trimester ([facility]) 04/19/2024 Hyperlipidemia LGA (large for gestational age) ([facility]) 12/23/2016 12/23/16 - >95% Polyhydramnios ([facility]) 01/01/2017 Pre-existing type 2 diabetes mellitus in in first trimester ([facility]) 06/15/2024 First trimester Hgb A1c 10.5%, now follows with Dr. Guillermo Recurrent UTI Type 2 diabetes mellitus ([facility]) PAST SURGICAL HISTORY Procedure Laterality Date CHOLECYSTECTOMY D&C, DIAG AND/OR THERAPEUTIC 2017 Current Outpatient Medications Medication Sig Dispense Refill insulin NPH (HUMULIN N NPH INSULIN KWIKPEN) 100 unit/mL (3 mL) injection pen 90 units at bedtime 45 mL 11 insulin lispro (HUMALOG KWIKPEN INSULIN) 100 unit/mL 23 -23 - 26 units prior to each meal respectively + scale (upto 100 units/day) 45 mL 11 busPIRone (BUSPAR) 15 mg tablet albuterol HFA (PROVENTIL HFA, VENTOLIN HFA) 90 mcg/actuation inhaler Inhale 2 Puffs as instructed every 6 hours as needed. FLUoxetine (PROZAC) 40 mg capsule Take 20 mg by mouth. albuterol HFA (PROVENTIL HFA, VENTOLIN HFA) 90 mcg/actuation inhaler Inhale 2 Puffs as instructed. acyclovir (ZOVIRAX) 400 mg tablet Take 1 tablet by mouth two times a day. 60 tablet 3 Insulin [place], Disposable, (BD ULTRAFINE III MINI PEN) 31 gauge x 3/16 4 TIMES/DAY 200 each 3 lancets ([employer] DELICA PLUS LANCET) 30 gauge Use with blood glucose test four times a day. Insulin Dep? Yes 100 Each 11 blood sugar diagnostic ([employer]CH VERIO TEST STRIPS) test strip Use as instructed - TEST BLOOD SUGARS 4 TIMES DAILY 150 Each 11 Blood-Glucose Meter ([employer] VERIO FLEX METER) Use to check blood glucose 4 times daily. 1 Each 0 VIT 10-IRON FUM-FOLIC ORAL Take by mouth. No current facility-administered medications for this visit. ALLERGIES: Aluminum-Magnesium Hydroxide, Aripiprazole, Quetiapine, Metoclopramide, Promethazine, Zofran [Ondansetron], and Zoloft [Sertraline] PERSONAL HISTORY: SOCIAL HISTORY[1] FAMILY HISTORY: FAMILY HISTORY Problem Relation Age of Onset Hyperlipidemia Mother Diabetes Mother Hypertension Mother other (neuropathy) Mother Diabetes Father Heart Father Hypertension Father Hyperlipidemia Father Thyroid Sister Multiple Sclerosis Sister Depression Sister Anxiety disorder Sister other (carpal tunnel) Sister Hyperlipidemia Brother No Known Problems Brother Heart Maternal Grandmother Diabetes Maternal Grandfather Obesity Maternal Grandfather Diabetes Paternal Grandmother Heart Attack Paternal Grandmother Cancer Paternal Grandfather REVIEW OF SYMPTOMS: negative except as noted above PHYSICAL EXAMINATION: VITALS: Blood pressure 126/70, weight 93 kg (205 lb), last menstrual period 03/13/2024, not currently . GENERAL: The patient is well nourished, well hydrated in no acute distress. , The patient is oriented to time, place, and person. NECK: full range of motion GENITALIA: Normal external genitalia, Urethral meatus normal, Bladder nontender, normal vagina and normal vaginal tone, normal cervix, normal uterus, size and consistency, normal adnexa without masses or tenderness, and perineum WNL WET PREP: Not indicated IMPRESSION: 29yo desires sterilization PLAN: laparoscopic bilateral salpingectomy Pt has been counseled on risks/benefits and alternatives of surgery including but not limited to anesthesia, bleeding, infection, injury to pelvic structures including bowel, bladder, ureters and vessels. Pt wishes to proceed with surgery at this time. Pre and post op instructions reviewed I have reviewed and updated past medical and surgical history, medications and allergies Whit Schulte MD [1] Social History Tobacco Use Smoking status: Every Day Current packs/day: 0.50 Average packs/day: 0.5 packs/day for 14.0 years (7.0 ttl pk-yrs) Types: Cigarettes Smokeless tobacco: Never Vaping Use Vaping status: Never Used Substance Use Topics Alcohol use: No Drug use: No [facility] 01-19-2025 History and physical note Pre-Op History and Physical HPI: The patient is a 29 year old female presenting for pre-operative visit. She is scheduled for laparoscopic bilateral salpingectomy , for desires sterilization on 01/28/25. Procedure discussed along with risks, benefits and complications. Other alternatives discussed for management. Consent form signed? Yes. PAST MEDICAL HISTORY Diagnosis Date Asthma ([facility]) Bipolar H/O macrosomia in infant in prior , currently ([facility]) 05/07/2024 Herpes simplex type 2 (HSV-2) infection affecting , antepartum, unspecified trimester ([facility]) 04/19/2024 Hyperlipidemia LGA (large for gestational age) infant ([facility]) 12/23/2016 12/23/16 - >95% Polyhydramnios ([facility]) 01/01/2017 Pre-existing type 2 diabetes mellitus in in first trimester ([facility]) 06/15/2024 First trimester Hgb A1c 10.5%, now follows with Dr. Guillermo Recurrent UTI Type 2 diabetes mellitus ([facility]) PAST SURGICAL HISTORY Procedure Laterality Date CHOLECYSTECTOMY D&C, DIAG AND/OR THERAPEUTIC 2017 Current Outpatient Medications Medication Sig Dispense Refill insulin NPH (HUMULIN N NPH INSULIN KWIKPEN) 100 unit/mL (3 mL) injection pen 90 units at bedtime 45 mL 11 insulin lispro (HUMALOG KWIKPEN INSULIN) 100 unit/mL 23 -23 - 26 units prior to each meal respectively + scale (upto 100 units/day) 45 mL 11 busPIRone (BUSPAR) 15 mg tablet albuterol HFA (PROVENTIL HFA, VENTOLIN HFA) 90 mcg/actuation inhaler Inhale 2 Puffs as instructed every 6 hours as needed. FLUoxetine (PROZAC) 40 mg capsule Take 20 mg by mouth. albuterol HFA (PROVENTIL HFA, VENTOLIN HFA) 90 mcg/actuation inhaler Inhale 2 Puffs as instructed. acyclovir (ZOVIRAX) 400 mg tablet Take 1 tablet by mouth two times a day. 60 tablet 3 Insulin [place], Disposable, (BD ULTRAFINE III MINI PEN) 31 gauge x 3/16 4 TIMES/DAY 200 each 3 lancets (FashionStakeTOUCH DELICA PLUS LANCET) 30 gauge Use with blood glucose test four times a day. Insulin Dep? Yes 100 Each 11 blood sugar diagnostic (ONETOUCH VERIO TEST STRIPS) test strip Use as instructed - TEST BLOOD SUGARS 4 TIMES DAILY 150 Each 11 Blood-Glucose Meter (ONETOUCH VERIO FLEX METER) Use to check blood glucose 4 times daily. 1 Each 0 VIT 10-IRON FUM-FOLIC ORAL Take by mouth. No current facility-administered medications for this visit. ALLERGIES: Aluminum-Magnesium Hydroxide, Aripiprazole, Quetiapine, Metoclopramide, Promethazine, Zofran [Ondansetron], and Zoloft [Sertraline] PERSONAL HISTORY: SOCIAL HISTORY[1] FAMILY HISTORY: FAMILY HISTORY Problem Relation Age of Onset Hyperlipidemia Mother Diabetes Mother Hypertension Mother other (neuropathy) Mother Diabetes Father Heart Father Hypertension Father Hyperlipidemia Father Thyroid Sister Multiple Sclerosis Sister Depression Sister Anxiety disorder Sister other (carpal tunnel) Sister Hyperlipidemia Brother No Known Problems Brother Heart Maternal Grandmother Diabetes Maternal Grandfather Obesity Maternal Grandfather Diabetes Paternal Grandmother Heart Attack Paternal Grandmother Cancer Paternal Grandfather REVIEW OF SYMPTOMS: negative except as noted above PHYSICAL EXAMINATION: VITALS: Blood pressure 126/70, weight 93 kg (205 lb), last menstrual period 03/13/2024, not currently . GENERAL: The patient is well nourished, well hydrated in no acute distress. , The patient is oriented to time, place, and person. NECK: full range of motion GENITALIA: Normal external genitalia, Urethral meatus normal, Bladder nontender, normal vagina and normal vaginal tone, normal cervix, normal uterus, size and consistency, normal adnexa without masses or tenderness, and perineum WNL WET PREP: Not indicated IMPRESSION: 29yo desires sterilization PLAN: laparoscopic bilateral salpingectomy Pt has been counseled on risks/benefits and alternatives of surgery including but not limited to anesthesia, bleeding, infection, injury to pelvic structures including bowel, bladder, ureters and vessels. Pt wishes to proceed with surgery at this time. Pre and post op instructions reviewed I have reviewed and updated past medical and surgical history, medications and allergies Whit Schulte MD [1] Social History Tobacco Use Smoking status: Every Day Current packs/day: 0.50 Average packs/day: 0.5 packs/day for 14.0 years (7.0 ttl pk-yrs) Types: Cigarettes Smokeless tobacco: Never Vaping Use Vaping status: Never Used Substance Use Topics Alcohol use: No Drug use: No documented in this encounter [facility] 01-19-2025 History of Presen t illness Narrative VISIT Melissa Byrne is a 29 year old year old here for visit. Delivery Summary: 12/07/24 F- Nallely ROS/ Recovery: Feeding: Bottle feeding problems: None Menses since delivery: none Menstrual pattern prior to : Regular periods [place] since delivery: Resumed Depression: denies symptoms of depression. OB Depression and Anxiety Screening- This Encounter Feeling down, depressed, or hopeless: More than half the days Little interest or pleasure in doing things: More than half the days I have been able to laugh and see the funny side of things. Not quite so much now I have looked forward with enjoyment to things. Rather less than I used to I have blamed myself unnecessarily when things went wrong. Yes, some of the time I have been anxious or worried for no good reason. Yes, very often I have felt scared or panicky for no good reason. Yes, sometimes Things have been getting on top of me. Yes, sometimes I haven't been coping as well as usual I have been so unhappy that I have had difficulty sleeping. Yes, sometimes I have felt sad or miserable. Yes, quite often I have been so unhappy that I have been crying. Only occasionally The thought of harming myself has occurred to me. Never [place] Depression Scale Total 16 Feeling nervous, anxious, or on edge More than half the days Not being able to stop or control worrying More than half the days Anxiety Pre-Screening Total (If >/= 3 additional questions will be reviewed) 4 Worrying too much about different things More than half the days Trouble relaxing Nearly Everyday Being so restless that it is hard to sit still Several days Becoming easily annoyed or irritable Nearly Everyday Feeling afraid, as if something awful might happen Several days How difficult to do work, care for home, get along with people Very difficult SHIRA-7 Score 14 Emotional support: Yes Bowel symptoms: Negative for abdominal discomfort, blood in stools or black stools and change in bowel habits Abdomen: N/A Bladder symptoms: No dysuria, gross hematuria, urinary frequency, urinary urgency, or incontinence Other issues: None Last Pap: 2023 normal HPV: N/A PAST MEDICAL HISTORY Diagnosis Date Asthma ([facility]) Bipolar H/O macrosomia in in prior , currently ([facility]) 05/07/2024 Herpes simplex type 2 (HSV-2) infection affecting , antepartum, unspecified trimester ([facility]) 04/19/2024 Hyperlipidemia LGA (large for gestational age) ([facility]) 12/23/2016 12/23/16 - >95% Polyhydramnios ([facility]) 01/01/2017 Pre-existing type 2 diabetes mellitus in in first trimester ([facility]) 06/15/2024 First trimester Hgb A1c 10.5%, now follows with Dr. Guillermo Recurrent UTI Type 2 diabetes mellitus ([facility]) PAST SURGICAL HISTORY Procedure Laterality Date CHOLECYSTECTOMY [...] Topics Alcohol use: No Drug use: No PHYSICAL EXAMINATION: SENSITIVE EXAM: The sensitive examination was discussed with the Patient or Patient's Authorized Manager Fixed Income. As applicable, any other physician, advance practice provider, medical student, or other health professional student that will be observing or involved in the sensitive examination for educational or training purposes was discussed with the Patient or Authorized Manager Fixed Income. The Patient or Authorized Manager Fixed Income has agreed to proceed with the sensitive examination. (Sensitive examination includes inspection and/or palpation of the breasts, pelvis, prostate and anorectal regions). BP 126/70 Wt 205 lb (93.0kg) LMP 03/13/2024 GENERAL: pleasant, female in no apparent distress HEENT: Normocephalic, atraumatic, mucus membranes moist, and no lesions NECK: Supple, full range of motion, no adenopathy, and thyroid normal DERMATOLOGY: Normal, without lesions, non-icteric, and non-hirsute BREAST: soft, non-tender, symmetric, no dominant mass, normal nipple-areolar complex, no lymphadenopathy, and no nipple discharge CHEST: Normal inspiratory effort ABDOMEN: soft, non-tender, and no masses. INCISION: N/A PELVIC: external genitalia normal, normal Bartholin's glands, urethra, Hawthorne's glands, no vulvar lesions, no cervical lesions, good vaginal support, physiologic discharge present, normal appearing perineal body and perianal region BIMANUAL: uterus normal size, shape and consistency, no adnexal masses, and non-tender NEURO: alert and oriented x3,exam grossly non-focal EXTREMITIES: normal ASSESSMENT AND PLAN: 29 year old status post with normal course. Contraception plan: tubal ligation Follow up: RTC for annual exams and PRN Whit Patel MD documented in this encounter [facility] 12-21-2024 Note [facility] 12-21-2024 History of Presen t illness Narrative EARLY VISIT Melissa Byrne is a 29 year old here for 2 week visit. Delivery Summary: Date: 12/07/2024 @ 38 wk 3 d Sex: Female Name: Nallely Weight: 6 lb 9.3oz Outcome: Vaginal Delivery Details: Induction for Pregestational DM, Anesthesia: Epidural Delivered by: William Gramajo MD ROS: General: Denies any fever or chills Hypertension Screening: Headache? Yes. Was it successfully treated with Tylenol? That or a hot shower helps relieve her headaches. Visual Changes? No Epigastric Pain? No Increased Swelling? No Taking any BP medications at home? No If applicable, monitoring BP at home? (If Yes, include results) No Mood: mood fluctuates. Depression: admits to symptoms of depression. OB Depression and Anxiety Screening- This Encounter Feeling down, depressed, or hopeless: Several days Little interest or pleasure in doing things: Several days Feeling nervous, anxious, or on edge More than half the days Not being able to stop or control worrying Several days Anxiety Pre-Screening Total (If >/= 3 additional questions will be reviewed) 3 Worrying too much about different things Nearly Everyday Trouble relaxing Several days Being so restless that it is hard to sit still Nearly Everyday Becoming easily annoyed or irritable Nearly Everyday Feeling afraid, as if something awful might happen Several days How difficult to do work, care for home, get along with people Very difficult SHIRA-7 Score 14 Feeding: Bottle feeding problems: None Bladder: No dysuria, gross hematuria, urinary frequency, urinary urgency, or incontinence. Bowel symptoms: Negative for abdominal discomfort, blood in stools or black stools and change in bowel habits, does report nausea Abdomen: N/A Bleeding: light flow Bottom and Perineum: No issues Sleep: is having trouble sleeping, is up throughout the night with baby, States she has insomnia so it is hard for her to go back to sleep once she is awake. sleeps in bassinet/crib in parent's room, does not feel rested [place] since delivery: Not resumed Emotional support: Yes Exercise: light walking around the house. Other issues: would like to know when she can resume intercourse. SENSITIVE EXAM: Sensitive exam not performed. PHYSICAL EXAMINATION: LMP 03/13/2024 General: pleasant,female in no apparent distress, A&O x 3. Skin warm and intact. Breast: Deferred Abdomen: Deferred /Incision: N/A Pelvic: Deferred Bimanual: Deferred ASSESSMENT AND PLAN: 29 year old status post with normal course. Contraception plan: tubal ligation. Reinforced 6-week pelvic rest. Encouraged condom usage should patient deviate. Education: resources provided - see MA/RN note Depression/anxiety - follows with counseling and a psychiatrist. Reviewed SI/HI precautions. Follow up: Return to Clinic for 6 week visit and as needed William Gramajo MD documented in this encounter [facility] 12-16-2024 History and physi vicenta note [facility] 12-16-2024 Telephone encount er Note Patient notified and instructions given to go to L&D for evaluation. [facility] 12-16-2024 Miscellaneous Notes Formattin g of this note might be different from the original. Patient notified and instructions given to go to L&D for evaluation. to L&D for eval for preeclampsia. Piper Julian MD Patient had a on 12/07/[address] Gramajo. Patient called c/o a pressure/tension headache X 4 days with nausea. Rates headache pain a 6 out of 10 on pain scale. Has taken tylenol with no relief. Denies vision issues, no upper abd/epigastric pain. Patient also c/o right lower leg swelling that does not resolve when resting with:pins & needles sensation. Denies redness/warmth/pain in right leg. Patient states Left leg was swollen after delivery but swelling is minimal now. appointment 12/21/24. Patient requesting sooner appointment d/t headache & swelling. No openings tomorrow. documented in this encounter [facility] 12-16-2024 Telephone encount er Note to L&D for eval for preeclampsia. Piper Julian MD [facility] 12-16-2024 Telephone encount er Note Patient had a on 12/07/[address] Gramajo. Patient called c/o a pressure/tension headache X 4 days with nausea. Rates headache pain a 6 out of 10 on pain scale. Has taken tylenol with no relief. Denies vision issues, no upper abd/epigastric pain. Patient also c/o right lower leg swelling that does not resolve when resting with:pins & needles sensation. Denies redness/warmth/pain in right leg. Patient states Left leg was swollen after delivery but swelling is minimal now. appointment 12/21/24. Patient requesting sooner appointment d/t headache & swelling. No openings tomorrow. [facility] 12-15-2024 Telephone encount er Note Reviewed BG data- responded as follows: Hi Hoda- I hope all is well with you and the new addition to your family! Is this your current post insulin regimen? NPH 20 units at bedtime Humalog 8 units prior to meals (+5 units with higher carb meals) Assuming so- you should continue this as you are doing- your blood sugars look good- you have a f/u with me next month- will see you then, let me know if you need anything in the interim- thanks! KB [facility] 12-15-2024 Miscellaneous Notes Formattin g of this note might be different from the original. Reviewed BG data- responded as follows: Hi Hoda- I hope all is well with you and the new addition to your family! Is this your current post insulin regimen? NPH 20 units at bedtime Humalog 8 units prior to meals (+5 units with higher carb meals) Assuming so- you should continue this as you are doing- your blood sugars look good- you have a f/u with me next month- will see you then, let me know if you need anything in the interim- thanks! KB documented in this encounter [facility] 12-09-2024 Progress note Note Date/Time December 09, 2024 8:46a m [facility] Medical Records Department [address] [place] [address] Progress Note - OBGYN 12/09/24 0845 MR#: [id number] Acct: [id number] Name: MELISSA BYRNE Rep #:[id number] : 1995 29 From: Krys Kulkarni MD PCP: Dr. Jamari Byrne MD Status:ADM IN Location: [id number] Subjective Subjective Doing well. Ambulating and voiding without difficulty. Mild lochia. Breast feeding. Blood sugars good. Has a insulin plan with endocrine. Objective Data Objective Data Vital Signs: Vital Signs Temp Pulse Resp BP Pulse Ox O2 Del Method O2 Flow Rate 97.6 F L 84 16 136/80 H 98 Room Air 98 12/09/24 01:31 12/09/24 07:37 12/09/24 01:31 12/09/24 07:37 12/09/24 01:31 12/09/24 01:31 12/08/24 20:31 Oxygen Flow Rate (L/min) 98 Oxygen Delivery Method Room Air Weight: 96 kg Body Mass Index (BMI) 38.7 Intake & Output: Intake and Output for Last 24 Hours 12/07/24 12/08/24 12/09/24 23:59 23:59 23:59 Intake Total 3027.30 / 3027.30 Output Total 750 / 750 500 / 500 Balance 2277.30 / 2277.30 -500 / -500 Lab / Micro Data 12/07/24 12:00 Labs: Laboratory Results - last 24 hr 12/08/24 09:24: POC Glucose 132 H 12/08/24 12:45: POC Glucose 104 12/08/24 17:06: POC Glucose 93 12/08/24 22:20: POC Glucose 125 H 12/09/24 00:21: POC Glucose 101 ROS Constitutional Constitutional: Denies headache(s) Cardiovascular Cardiovascular: Denies chest pain or dyspnea Gastrointestinal Gastrointestinal: Denies nausea or vomiting Genitourinary Genitourinary: Denies dysuria Physical Exam Const alert, oriented x3 and no apparent distress General Appearance: cooperative and comfortable Eyes PERRL and EOMs intact bilaterally Resp normal respiratory effort GI soft to palpation and non-tender Uterus Palpation: uterus fundus firm ( below umbilicus) Extremity normal to inspection and full ROM Neuro oriented x3 and CN's II-XII intact bilaterally Psych mental status grossly normal Assessment & Plan (1) (spontaneous vaginal delivery): (2) Type 2 diabetes mellitus affecting , antepartum: COMMENT: @ 38&3 (3) Bipolar 1 disorder: PLAN: Plan Discharge home 12/09/24 0846 <Electronically signed by Krys Kulkarni MD> Cosigner Signature (if applicable): CC: ~ Signed [facility] Work Phone: [phone] 834-497507-03-2025 [facility] Medical Records Department [address] [place] [address] Discharge Summary 12/09/24 0846 MR#: [id number] Acct: [id number] Name: MELISSA BYRNE Rep #: [id number] : 1995 29 From: Krys Kulkarni MD PCP: Dr. Jamari Byrne MD Status:DIS IN Location: [id number] Providers Date of Admission: 12/07/24 Date of Discharge: 12/09/24 Primary Care Physician: Dr. Jamari Byrne MD Reason For Visit: VAG Diagnosis Discharge Diagnosis (1) (spontaneous vaginal delivery): Status: Acute Code(s): O80 - Encounter for full-term uncomplicated delivery (2) Type 2 diabetes mellitus affecting , antepartum: Status: Acute Code(s): O24.119 - Pre-existing type 2 diabetes mellitus, in , unspecified trimester (3) Bipolar 1 disorder: Status: Acute Code(s): F31.9 - Bipolar disorder, unspecified Plan Discharge home Medications at Discharge Home Medications buspirone 15 mg tablet 15 mg PO QDAY anxiety 02/26/24 insulin lispro 100 unit/mL subcutaneous pen (Humalog KwikPen (U-100) Insulin) 23 unit subcut .COMPLEX pregestational diabetes 02/26/24 HumuLIN N NPH Insulin KwikPen 90 units subcut QHS type II diabetes 10/16/24 acyclovir 400 mg tablet 400 mg PO BID HSV 11/15/24 albuterol sulfate 90 mcg/actuation aerosol inhaler 1 - 2 puff inhalation PRN PRN shortness of breath or wheezing 11/15/24 fluoxetine 20 mg capsule 20 mg PO DAILY anxiety 11/15/24 Hospital Course Operations None Procedures None Summary of Care Provided Minutes Spent on Discharge: 20 Hospital Course: . Insulin DM. Controlled. Bottefeeding. Weight / BMI Weight Weight: 96 kg Body Mass Index (BMI) 38.7 ABG / Lab / Microbiology Data 12/07/24 12:00 Laboratory: Laboratory Results - last 24 hr 12/08/24 22:20: POC Glucose 125 H 12/09/24 00:21: POC Glucose 101 12/09/24 08:30: POC Glucose 97 D/C Instructions May resume sexual activity in: 6 weeks DC O2, CPAP, BIPAP Needs Home O2 Discharge instructions: No Please Follow Up With: Piper Julian MD When: Follow up with our office in 1-2 and 6 weeks or as needed. [phone] Meaningful Use Info Meaningful Use Meaningful Use Diagnoses (Choose all that apply): None applicable Ischemic Stroke Statin Dosing Therapy Reference: STATIN DOSE THERAPY REFERENCE: * Patients > 75 years receive moderate or high dose statin therapy. * Patients 75 years or YOUNGER should receive HIGH intensity statin dose unless contraindicated. You will be required to document reason for non-treatment if statin daily dose does not meet guidelines. HIGH DOSE STATIN THERAPY DAILY Atorvastatin > than or = to 40 mg Rosuvastatin > than or = to 20 mg Amlodipine + Atorvastatin > than or = to 2.5/40 mg Ezetimibe + Simvastatin 10/80 mg Simvastatin 80mg Discharge Plan Admission Admit Date/Time: 12/07/24 11:00 Primary Reason for Your Visit: labor Attending Provider: William Gramajo Primary Care Provider: Jamari Byrne Instructions Patient Instructions: After a Vaginal Delivery (WP) Discharge Orders/Prescriptions Prescriptions: Continued insulin lispro [Humalog KwikPen Insulin] 100 unit/mL insulin pen 23 unit subcut .COMPLEX Rx Instructions: 23 units subcutaneously at breakfast and lunch; 26 units at dinner buspirone 15 mg tablet 15 mg PO QDAY albuterol sulfate 90 mcg/actuation HFA aerosol inhaler 1 - 2 puff inhalation PRN PRN (Reason: shortness of breath or wheezing) fluoxetine 20 mg capsule 20 mg PO DAILY acyclovir 400 mg tablet 400 mg PO BID HumuLIN N NPH Insulin KwikPen 90 units subcut QHS Rx Instructions: 90 units; Discontinued aspirin [Adult Aspirin Regimen] 81 mg tablet,delayed release (DR/EC) 81 mg PO DAILY Referrals / Follow Up: Jamari Byrne MD [Primary Care Provider] - Disposition Disposition (needs filled in before D/C Order can be placed): Home, Self Care 12/09/24 183 Cosigner Signature (if applicable): CC: Dr. Jamari Byrne MD; Dr. Krys Kulkarni MD [facility]07-03-2025 Progress note [facility] Medical Records Department [address] [place] [address] Progress Note - OBGYN 12/09/24 0845 MR#: [id number] Acct: [id number] Name: MELISSA BYRNE Rep #:[id number] : 1995 29 From: Krys Kulkarni MD PCP: Dr. Jamari Byrne MD Status:ADM IN Location: [id number] Subjective Subjective Doing well. Ambulating and voiding without difficulty. Mild lochia. Breast feeding. Blood sugars good. Has a insulin plan with endocrine. Objective Data Objective Data Vital Signs: Vital Signs Temp Pulse Resp BP Pulse Ox O2 Del Method O2 Flow Rate 97.6 F L 84 16 136/80 H 98 Room Air 98 12/09/24 01:31 12/09/24 07:37 12/09/24 01:31 12/09/24 07:37 12/09/24 01:31 12/09/24 01:31 12/08/24 20:31 Oxygen Flow Rate (L/min) 98 Oxygen Delivery Method Room Air Weight: 96 kg Body Mass Index (BMI) 38.7 Intake & Output: Intake and Output for Last 24 Hours 12/07/24 12/08/24 12/09/24 23:59 23:59 23:59 Intake Total 3027.30 / 3027.30 Output Total 750 / 750 500 / 500 Balance 2277.30 / 2277.30 -500 / -500 Lab / Micro Data 12/07/24 12:00 Labs: Laboratory Results - last 24 hr 12/08/24 09:24: POC Glucose 132 H 12/08/24 12:45: POC Glucose 104 12/08/24 17:06: POC Glucose 93 12/08/24 22:20: POC Glucose 125 H 12/09/24 00:21: POC Glucose 101 ROS Constitutional Constitutional: Denies headache(s) Cardiovascular Cardiovascular: Denies chest pain or dyspnea Gastrointestinal Gastrointestinal: Denies nausea or vomiting Genitourinary Genitourinary: Denies dysuria Physical Exam Const alert, oriented x3 and no apparent distress General Appearance: cooperative and comfortable Eyes PERRL and EOMs intact bilaterally Resp normal respiratory effort GI soft to palpation and non-tender Uterus Palpation: uterus fundus firm ( below umbilicus) Extremity normal to inspection and full ROM Neuro oriented x3 and CN's II-XII intact bilaterally Psych mental status grossly normal Assessment & Plan (1) (spontaneous vaginal delivery): (2) Type 2 diabetes mellitus affecting , antepartum: COMMENT: @ 38&3 (3) Bipolar 1 disorder: PLAN: Plan Discharge home 12/09/24 0846 Cosigner Signature (if applicable): CC: ~ Signed [facility]07-02-2025 Telephone encounter Note* Telephone Encounter - Piper Julian MD - 12/08/2024 6:26 PM EDT nevermind, patient had plan in a [employer] message, I didn't see it initially. Thanks. RLR [facility]07-02-2025 Miscellaneous Notes* Telephone Encounter - Piper Julian MD - 12/08/2024 6:26 PM EDT nevermind, patient had plan in a [employer] message, I didn't see it initially. Thanks. RLR * Telephone Encounter - Piper Julian MD - 12/08/2024 5:55 PM EDT Hoda delivered at [facility] on 12/07/24. We have her on insulin and would like to know if we should keep her on half her dose until follow up in January? Thanks! Piper Julian MD [facility] Telephone encounter Note * Telephone Encounter - Piper Julian MD - 12/08/2024 5:55 PM EDT Hoda delivered at [facility] on 12/07/24. We have her on insulin and would like to know if we should keep her on half her dose until follow up in January? Thanks! Piper Julian MD [facility]07-02-2025 Progress note Author Mariajose Nickerson [facility] Note Date/Time December 08, 2024 12:30 pm [facility] [facility] Medical Records Department [address] [place] [id number] Progress Note - OBGYN 12/08/24 0837 MR#: [id number] Acct: [id number] Name: MELISSA BYRNE Rep #:[id number] : 1995 29 From: Mariajose Nickerson CNM PCP: Dr. Jamari Byrne MD Status:ADM IN Location: [place] [address] Subjective Subjective Patient seen at bedside. Denies any pain. Ambulating and voiding without difficulty. Lochia decreasing. with support. Objective Data Objective Data Vital Signs: Vital Signs Temp Pulse Resp BP Pulse Ox O2 Del Method 97.8 F 99 18 100/56 L 97 Room Air 12/08/24 02:35 12/08/24 02:35 12/08/24 02:35 12/08/24 02:35 12/08/24 02:35 12/08/24 02:35 Oxygen Delivery Method Room Air Weight: 211 lb 10.3 oz Body Mass Index (BMI) 38.7 Intake & Output: Intake and Output for Last 24 Hours 12/06/24 12/07/24 12/08/24 23:59 23:59 23:59 Intake Total 3027.30 / 3027.30 Output Total 750 / 750 500 / 500 Balance 2277.30 / 2277.30 -500 / -500 Lab / Micro Data Attestation: I reviewed the patient's lab results. 12/07/24 12:00 Labs: Laboratory Results - last 24 hr 12/07/24 12:00: WBC 9.0, RBC 4.25, Hgb 12.1, Hct 36.0 L, MCV 84.7, MCH 28.5, MCHC 33.6, RDW Std Deviation 41.1, RDW Coeff of Linda 13.4, Plt Count 230, MPV 9.7, Immature Gran % (Auto) 0.600, Neut % (Auto) 70.0, Lymph % (Auto) 22.0, Calvert% (Auto) 6.0, Eos % (Auto) 1.0, Baso % (Auto) 0.4, Absolute Neuts (auto) 6.3, Absolute Lymphs (auto) 1.98, Nucleated RBC % 0, Urine Opiates Screen NEGATIVE, UBuprenorphine Qual NEGATIVE, Ur Oxycodone Screen NEGATIVE, Urine Methadone Screen NEGATIVE, Urine Fentanyl Screen NEGATIVE, Ur Barbiturates Screen NEGATIVE, Ur Phencyclidine Scrn NEGATIVE, Ur Amphetamines Screen NEGATIVE, U Benzodiazepines Scrn NEGATIVE, Urine Cocaine Screen NEGATIVE, U Cannabinoids Screen NEGATIVE, Ur Drug Screen Comment Cancelled, Syphilis Total Ab Nonreactive, Blood Type A POSITIVE, Antibody Screen NEGATIVE 12/07/24 12:44: POC Glucose 99 12/07/24 15:35: POC Glucose 73 L 12/07/24 19:25: POC Glucose 118 H 12/07/24 22:06: POC Glucose 143 H ROS Eyes Eyes: Denies blurry vision, change in vision or spots in vision ENT HEENT: Denies dizziness or headache(s) Cardiovascular Cardiovascular: Denies abdominal pain, chest pain or dyspnea Respiratory/Chest Respiratory/Chest: Denies cough, dyspnea, shortness of breath at rest or shortness of breath with exertion Gastrointestinal Gastrointestinal: Denies abdominal pain, diarrhea or vomiting Genitourinary Genitourinary: Denies change in urinary stream, difficulty urinating or dysuria Musculoskeletal Musculoskeletal: Reports none Integumentary Integumentary: Denies rash Neurologic Neurologic: Denies dizziness, headache(s), memory loss or weakness Physical Exam Const alert and no apparent distress General Appearance: cooperative and comfortable Exam Limitations: no limitations HEENT normocephalic Eyes General Eye: normal appearance of both eyes Neck full ROM General: normal visual inspection Chest Chest: symmetrical chest wall rise Resp normal respiratory effort and normal air movement Effort and Inspection: symmetric chest movement Auscultation: clear to auscultation bilaterally Cardio regular rate and regular rhythm GI normal to inspection, nondistended, normoactive bowel sounds Back/Spine normal ROM Extremity full ROM and no calf tenderness General Extremity: normal exam except as noted Skin no rashes or lesions noted Neuro oriented x3 Speech: speech normal Psych mental status grossly normal Thought Process: normal thought process Assessment & Plan (1) Obesity affecting : QUALIFIERS: Obesity type affecting : unspecified obesity Trimester: third trimester Qualified Code(s): O99.213 - Obesity complicating , third trimester (2) Bipolar 1 disorder: (3) Asthma: (4) Diabetes: (5) (spontaneous vaginal delivery): (6) Care and examination of lactating mother: PLAN: Plan PPD [address] support Blood glucose monitoring Dr. Julian to see and plan of care for insulin administration Anticipate discharge home tomorrow 12/08/24 1230 <Electronically signed by Mariajose Nickerson CNM> Yao Signature (if applicable): CC: ~ Signed [facility] Work Phone: 1(352) 746-101007-02-2025 NoteHNO ID: [id number] Author: KRYS MURCIA RN Service: ? Author Type: Registered Nurse Type: Progress Notes Filed: 12/08/2024 13:54 Note Text: Patient delivered via at [facility] on 12/07/24 per William Gramajo MD . See OB Outcome note. [facility] Murcia [facility] History of Present illness Narrative* Krys Murcia RN - 12/08/2024 1:52 PM EDT Patient delivered via at [facility] on 12/07/24 per William Gramajo MD . See OB Outcome note. Krys Murcia RN documented in [facility] encounterOhio [facility]-20[facility] Progress note [facility] Medical Records Department [address] [place] [address] Progress Note - OBGYN 12/08/24 0837 MR#: [id number] Acct: [id number] Name: MELISSA BYRNE Rep #:[id number] : 1995 29 From: Mariajose Nickerson CNM PCP: Dr. Jamari Byrne MD Status:ADM IN Location: [id number] Subjective Subjective Patient seen at bedside. Denies any pain. Ambulating and voiding without difficulty. Lochia decreasing. with support. Objective Data Objective Data Vital Signs: Vital Signs Temp Pulse Resp BP Pulse Ox O2 Del Method 97.8 F 99 18 100/56 L 97 Room Air 12/08/24 02:35 12/08/24 02:35 12/08/24 02:35 12/08/24 02:35 12/08/24 02:35 12/08/24 02:35 Oxygen Delivery Method Room Air Weight: 211 lb 10.3 oz Body Mass Index (BMI) 38.7 Intake & Output: Intake and Output for Last 24 Hours 12/06/24 12/07/24 12/08/24 23:59 23:59 23:59 Intake Total 3027.30 / 3027.30 Output Total 750 / 750 500 / 500 Balance 2277.30 / 2277.30 -500 / -500 Lab / Micro Data Attestation: I reviewed the patient's lab results. 12/07/24 12:00 Labs: Laboratory Results - last 24 hr 12/07/24 12:00: WBC 9.0, RBC 4.25, Hgb 12.1, Hct 36.0 L, MCV 84.7, MCH 28.5, MCHC 33.6, RDW Std Deviation 41.1, RDW Coeff of Linda 13.4, Plt Count 230, MPV 9.7, Immature Gran % (Auto) 0.600, Neut % (Auto) 70.0, Lymph % (Auto) 22.0, Calvert% (Auto) 6.0, Eos % (Auto) 1.0, Baso % (Auto) 0.4, Absolute Neuts(auto) 6.3, Absolute Lymphs (auto) 1.98, Nucleated RBC % 0, Urine Opiates Screen NEGATIVE, UBuprenorphine Qual NEGATIVE, Ur Oxycodone Screen NEGATIVE, Urine Methadone Screen NEGATIVE, Urine Fentanyl Screen NEGATIVE, Ur Barbiturates Screen NEGATIVE, Ur Phencyclidine Scrn NEGATIVE, Ur Amphetamines Screen NEGATIVE, U Benzodiazepines Scrn NEGATIVE, Urine Cocaine Screen NEGATIVE, U Cannabinoids ScreenNEGATIVE, Ur Drug Screen Comment Cancelled, Syphilis Total Ab Nonreactive, Blood Type A POSITIVE, Antibody Screen NEGATIVE 12/07/24 12:44: POC Glucose 99 12/07/24 15:35: POC Glucose 73 L 12/07/24 19:25: POC Glucose 118 H 12/07/24 22:06: POC Glucose 143 H ROS Eyes Eyes: Denies blurry vision, change in vision or spots in vision ENT HEENT: Denies dizziness or headache(s) Cardiovascular Cardiovascular: Denies abdominal pain, chest pain or dyspnea Respiratory/Chest Respiratory/Chest: Denies cough, dyspnea, shortness of breath at rest or shortness of breath with exertion Gastrointestinal Gastrointestinal: Denies abdominal pain, diarrhea or vomiting Genitourinary Genitourinary: Denies change in urinary stream, difficulty urinating or dysuria Musculoskeletal Musculoskeletal: Reports none Integumentary Integumentary: Denies rash Neurologic Neurologic: Denies dizziness, headache(s), memory loss or weakness Physical Exam Const alert and no apparent distress General Appearance: cooperative and comfortable Exam Limitations: no limitations HEENT normocephalic Eyes General Eye: normal appearance of both eyes Neck full ROM General: normal visual inspection Chest Chest: symmetrical chest wall rise Resp normal respiratory effort and normal air movement Effort and Inspection: symmetric chest movement Auscultation: clear to auscultation bilaterally Cardio regular rate and regular rhythm GI normal to inspection, nondistended, normoactive bowel sounds Back/Spine normal ROM Extremity full ROM and no calf tenderness General Extremity: normal exam except as noted Skin no rashes or lesions noted Neuro oriented x3 Speech: speech normal Psych mental status grossly normal Thought Process: normal thought process Assessment & Plan (1) Obesity affecting : QUALIFIERS: Obesity type affecting : unspecified obesity Trimester: third trimester Qualified Code(s): O99.213 - Obesity complicating , third trimester (2) Bipolar 1 disorder: (3) Asthma: (4) Diabetes: (5) (spontaneous vaginal delivery): (6) Care and examination of lactating mother: PLAN: Plan PPD 1 support Blood glucose monitoring Dr. Julian to see and plan of care for insulin administration Anticipate discharge home tomorrow 12/08/24 1230 Cosigner Signature (if applicable): CC: ~ Signed [facility]07-01-2025 Procedure note [facility] Medical Records Department [address] [place] [address] OB Vaginal Delivery 12/07/242023 MR#: [id number] Acct: [id number] Name: MELISSA BYRNE Rep #:[id number] : 1995 29 From: William Gramajo MD PCP: Dr. Jamari Byrne MD Status:ADM IN Location: [id number] Maternal Data Information ADA Calculator Estimated Delivery Date Method Current WG Current Estimate 12/18/24 Manual 38w 3d Vaginal Delivery Maternal Presentation Maternal Presentation: Medically Indicated Induction Type of Induction: Pitocin and Amniotomy Medical Reason for Induction: Maternal Medical Condition: list: (Pregestational diabetes) Vaginal Delivery Information Procedure Performed: Spontaneous Vaginal Delivery Surgeon/Practitioner: William Gramajo Date of Procedure: 12/07/24 Pre-Procedure Diagnosis: Pregestational diabetes Post-Procedure Diagnosis: Same Type of anesthesia: Epidural Estimated Blood Loss: 300ml Findings Description of procedure: Called to room when patient C/C/+1. She was prepped & draped. Patient pushed well to deliver the head. head was gently guided to allow delivery of anterior and posterior shoulders. Noexcess traction placed on the head. The body delivered. 3VC clamped and cut in delayed fashion. Placenta delivered with gentle traction and good uterine tone obtained. Presentation: CONTRERAS Amniotic Membrane Rupture Type: Artificial Amniotic Fluid Description: Clear Placental Delivery Description: Expressed Placenta Disposition: [facility] Specimen collected: No Cord Vessel Description: 3 Vessels Cord Entanglement: None Infant A Gender: Female (1 minute): 9 (5 minute): 10 Delayed Cord Clamping: Yes Machine Design Checker tailor women's garment alteration: No Post Vaginal Deli Medications given after delivery: IV Pitocin Episiotomy Description: None Laceration: None Complication Complications: No 12/07/242025 Cosigner Signature (if applicable): CC: Dr. Jamari Byrne MD; Dr. William Gramajo MD~ Signed [facility]07-01-2025 History and physical note Author William Gramajo [facility] Note Date/Time December 07, 2024 1:42p m [facility] Medical Records Department [address] [place] [address] H&P Exam - MEMBER CERTIFICATION MANAGER 12/07/24 1223 MR#: [id number] Acct: [id number] Name: MELISSA BYRNE Rep #:[id number] : 1995 29 From: William Gramajo MD PCP: Dr. Jamari Byrne MD Status:ADM IN Location: [id number] HPI - General General Date of Admission: 12/07/24 HPI Narrative MELISSA BYRNE, is a 29 F who presents with contractions and was scheduled forinduction today. Maternal Data Information ADA Calculator Estimated Delivery Date Method Current WG Current Estimate 12/18/24 Manual 38w 3d PFSH [facility] Medical History (Updated 12/07/24 @ 13:[address] William Gramajo MD) Seizures Asthma Osteoarthritis Diabetes Medical History no medical history Home Medications ?Medication ?Instructions ?Recorded ?Last Taken ?Type buspirone 15 mg tablet 15 mg PO QDAY anxiety 12/07/24 History insulin lispro 100 unit/mL 23 unit subcut .COMPLEX 12/07/24 History subcutaneous pen (Humalog KwikPen pregestational diabe deacon (U-100) Insulin) HumuLIN N NPH Insulin KwikPen 90 units subcut QHS type II 10/16/24 12/06/24 History diabetes aspirin 81 mg tablet,delayed 81 mg PO DAILY 10/16/24 12/06/24 History release (Adult Aspirin Regimen) acyclovir 400 mg tablet 400 mg PO BID HSV 11/15/24 0 12/07/24 History albuterol sulfate 90 mcg/actuation 1 - 2 puff inhalati on PRN PRN 11/15/24 11/01/24 15:57 History aerosol inhaler shortness of breath or wheez ing fluoxetine 20 mg capsule 20 mg PO DAILY anxiety 11/1512/07/24 History Allergy/AdvReac Type Severity Reaction Status Date [...] DNA Negative (Negative) Rhogam given: No Assessment & Plan (1) Type 2 diabetes mellitus affecting , antepartum: COMMENT: @ 38&3 (2) History of herpes genitalis: (3) Obesity affecting : QUALIFIERS: Trimester: third trimester Obesity type affecting : unspecified obesity Qualified Code(s): O99.213 - Obesity complicating , third trimester (4) 38 weeks gestation of : PLAN: Plan Admit to L&D. Expectant management and will augment with pitocin if needed. GBS positive - pcn per protocol. Pain - epidural as desired. EFW - less than 4500g and patient with adequate pelvis. Routine care. 12/07/24 1342 <Electronically signed by William Gramajo MD> Cosigner Signature (if applicable): CC: Dr. Jamari Byrne MD; Dr. William Gramajo MD~ Signed [facility] Work Phone: 1(231) 939-468907-01-2025 History and physical note [facility] Medical Records Department [address] [place] [address] H&P Exam - MEMBER CERTIFICATION MANAGER 12/07/24 1223 MR#: [id number] Acct: [id number] Name: MELISSA BYRNE Rep #:[id number] : 1995 29 From: William Gramajo MD PCP: Dr. Jamari Byrne MD Status:ADM IN Location: [id number] HPI - General General Date of Admission: 12/07/24 HPI Narrative MELISSA BYRNE, is a 29 F who presents with contractions and was scheduled forinduction today. Maternal Data Information ADA Calculator Estimated Delivery Date Method Current WG Current Estimate 12/18/24 Manual 38w 3d [facility] Medical History (Updated 12/07/24 @ 13:[address] William Gramajo MD) Seizures Asthma Osteoarthritis Diabetes Medical History no medical history Home Medications ?Medication ?Instructions ?Recorded ?Last Taken ?Type buspirone 15 mg tablet 15 mg PO QDAY anxiety 12/07/24 History insulin lispro 100 unit/mL 23 unit subcut .COMPLEX 12/07/24 History subcutaneous pen (Humalog KwikPen pregestational diabe deacon (U-100) Insulin) HumuLIN N NPH Insulin KwikPen 90 units subcut QHS type II 10/16/24 12/06/24 History diabetes aspirin 81 mg tablet,delayed 81 mg PO DAILY 10/16/24 12/06/24 History release (Adult Aspirin Regimen) acyclovir 400 mg tablet 400 mg PO BID HSV 11/15/24 0 12/07/24 History albuterol sulfate 90 mcg/actuation 1 - 2 puff inhalati on PRN PRN 11/15/24 11/01/24 15:57 History aerosol inhaler shortness of breath or wheez ing fluoxetine 20 mg capsule 20 mg PO DAILY anxiety 11/1512/07/24 History Allergy/AdvReac Type Severity Reaction Status Date [...] DNA Negative (Negative) Rhogam given: No Assessment & Plan (1) Type 2 diabetes mellitus affecting , antepartum: COMMENT: @ 38&3 (2) History of herpes genitalis: (3) Obesity affecting : QUALIFIERS: Trimester: third trimester Obesity type affecting : unspecified obesity Qualified Code(s): O99.213 - Obesity complicating , third trimester (4) 38 weeks gestation of : PLAN: Plan Admit to L&D. Expectant management and will augment with pitocin if needed. GBS positive - pcn per protocol. Pain - epidural as desired. EFW - less than 4500g and patient with adequate pelvis. Routine care. 12/07/24 1342 Cosigner Signature (if applicable): CC: Dr. Jamari Byrne MD; Dr. William Gramajo MD~ Signed [facility]06-30-2025 Note Indication Evaluation of well-being Maternal obesity, [...] Idania Snyder RDMS, RVT Read By: Pooja Latham, M.D.MATERNAL [id number] Progress note* Quick Notes - Ronaldo Rubio MD - 12/06/2024 10:22 AM EDT Ab1 at 38w2ds with improved controlled type 2 diabetes using insulin BPP today 01/14 with VI 10 cm . Reports occ [facility] Induction scheduled for tomorrow Patient reports good FM Denies bleeding or LOF 2+ dtr. Ronaldo Rubio MD [facility] Work Phone: [phone] Miscellaneous Notes* Quick Notes - Ronaldo Rubio MD - 12/06/2024 10:22 AM EDT Ab1 at 38w2ds with improved controlled type 2 diabetes using insulin BPP today 01/14 with VI 10 cm . Reports occ [facility] Induction scheduled for tomorrow Patient reports good FM Denies bleeding or LOF 2+ dtr. Ronaldo Rubio MD documented in this encounterOhio [facility]06-30-2025 Telephone encounter Note * Telephone Encounter - Kelsy Guillermo DO - 12/06/2024 9:07 AM EDT Reviewed BG data- responded as follows; Good [...] again next week (if applicable!)- thanks! KB [facility]06-30-2025 Miscellaneous Notes* Telephone Encounter - Kelsy Guillermo DO - 12/06/2024 9:07 AM EDT Reviewed BG data- responded as follows; Good [...] (if applicable!)- thanks! KB documented in this encounterOhio [facility]06-30-2025 Instructions* Patient Instructions* Renetta Petersen MA - 12/06/2024 8:22 AM EDT SEQUENTIAL SCREENINGS The [facility] offers sequential screenings for women who [...] testing. It will require an appointment withour server support technician. This is not an ultrasound performed [...] the above symptoms, contact our office at [phone] and ask to speak with anurse. After hours, you can call doctors registry at [phone] OR call [facility] at [phone] ask to have the doctor director executive communications paged. If you consider this an emergency, dial 9-0 or go to your nearest emergency department. NEED HELP? Are you dealing with a violent or abusive relationship? Are you a victim of rape or sexual assult? Call [facility] ([place]) 24 hour Crisis Hotline: 670.244.3912 or 150-602-1847. MANUAL Your Guide to a Healthy manual is now on-line. Visit [email or web address] to download your free copy documented in this encounterOhio State Harding Hospital06-26-2025 NoteUniversity Hospitals Conne[facility]06-26-2025 History of Present illness Narrative* Keshav Loving MD - 12/02/2024 12:40 PM EDT NST SUMMARY PROVIDER ASSESSMENT AND INTERPRETATION Melissa Byrne is a 29 year old female, , who is at 37w5d with an ADA of 12/18/2024, by Last Menstrual Period dating method. Indications for NST: Diabetes - Insulin Controlled Baseline: 130 Variability: Moderate Accelerations: Present 15 X 15 Decelerations: None Contractions: TOCO: None Interpretation: Reactive SIGNATURE: Keshav Loving DO documented in this encounterOhio [facility]06-26-2025 Progress note* Quick Notes - Keshav Loving MD - 12/02/2024 10:56 AM EDT SW- Pt doing well. No ERWIN, vision [...] family to plan and she is currently sharinga car with father. Cont with scheduled BPP next week. NST reactive today Keshav Loving DO [facility]06-26-2025 Miscellaneous Notes* Quick Notes - Keshav Loving MD - 12/02/2024 10:56 AM EDT SW- Pt doing well. No ERWIN, vision [...] family to plan and she is currently sharinga car with father. Cont with scheduled BPP next week. NST reactive today Keshav Loving DO documented in this encounterOhio State [facility]ing Hospital06-26-2025 Instructions* Patient Instructions* Rebeca Vazquez MA - 12/02/2024 10:05 AM EDT SEQUENTIAL SCREENINGS The [facility] offers sequential screenings for women who [...] testing. It will require an appointment withour server support technician. This is not an ultrasound performed [...] the above symptoms, contact our office at [phone] and ask to speak with anurse. After hours, you can call doctors registry at [phone] OR call [facility] at [phone] ask to have the doctor director executive communications paged. If you consider this an emergency, dial 9-1- or go to your nearest emergency department. NEED HELP? Are you dealing with a violent or abusive relationship? Are you a victim of rape or sexual assult? Call [facility] ([place]) 24 hour Crisis Hotline: 239.832.7150 or 702-983-3677. MANUAL Your Guide to a Healthy manual is now on-line. Visit [email or web address] to download your free copy documented in this encounterOhio State [facility]ing Hospital06-25-2025 Telephone encounter Note * Telephone Encounter - Kelsy Guillermo DO - 12/01/2024 2:20 PM EDT Reviewed BG data- responded as follows: Hi Hoda- I reviewed your BG data- these numbers remain at goal for - continue your currentregimen as you are dong: NPH 90 units [...] Will review again next week- thanks! KB [facility]06-25-2025 Miscellaneous Notes* Telephone Encounter - Kelsy Guillermo DO - 12/01/2024 2:20 PM EDT Reviewed BG data- responded as follows: Hector Drummond- I reviewed your BG data- these numbers remain at goal for - continue your currentregimen as you are dong: NPH 90 units [...] next week- thanks! KB documented in this encounterOhio State [facility]06-24-2025 Note Indication Evaluation of well-being Maternal obesity, [...] Amniotic fluid volume 8/8 Biophysical profile score Performed By: Idania Snyder RDMS, RVT Read By: Elie Coronado M.D.MATERNAL [id number] Progress note* Quick Notes - William Gramajo MD - 11/25/2024 10:02 AM EDT S: Hoda denies LOF, contractions or vaginal [...] GBS bacteruria Orders: URINE OB DIP B/O messaged about induction timing. Will schedule 37-39 weeks. Reviewed labor & FM precautions William Gramajo MD [facility]06-19-2025 Miscellaneous Notes* Quick Notes - William Gramajo MD - 11/25/2024 10:02 AM EDT S: Hoda denies LOF, contractions or vaginal [...] precautions William Gramajo MD documented in this encounterOhio State [facility]ing Hospital06-19-2025 NoteUniversity Hospitals [facility]06-19-2025 History of Present illness Narrative* William Gramajo MD - 11/25/2024 10:01 AM EDT NST SUMMARY PROVIDER ASSESSMENT AND INTERPRETATION Melissa Byrne is a 29 year old female, , who is at 36w5d with an ADA of 12/18/2024, by Last Menstrual Period dating method. Indications for NST: Diabetes - Insulin Controlled Baseline: 145 Variability: Moderate Accelerations: Present 15 X 15 Decelerations: None Contractions: TOCO: Irregular Interpretation: Reactive SIGNATURE: William Gramajo MD documented in this encounterOhio State [facility]ing Hospital06-19-2025 Instructions* Patient Instructions* Teri Jack MA - 11/25/2024 8:48 AM EDT SEQUENTIAL SCREENINGS The [facility] offers sequential screenings for women who [...] testing. It will require an appointment withour server support technician. This is not an ultrasound performed [...] the above symptoms, contact our office at [phone] and ask to speak with anurse. After hours, you can call doctors registry at [phone] OR call [facility] at [phone] ask to have the doctor director executive communications paged. If you consider this an emergency, dial 9- or go to your nearest emergency department. NEED HELP? Are you dealing with a violent or abusive relationship? Are you a victim of rape or sexual assult? Call [facility] ([place]) 24 hour Crisis Hotline: 657.410.6208 or 307-879-3539. MANUAL Your Guide to a Healthy manual is now on-line. Visit [email or web address] to download your free copy documented in this encounterOhio State [facility]ing Hospital06-19-2025 Telephone encounter Note * Telephone Encounter - Kelsy Guillermo DO - 11/25/2024 8:04 AM EDT Reviewed BG data- responded as [...] review again next week- thanks! Dr Guillermo [facility]06-19-2025 Miscellaneous Notes* Telephone Encounter - Kelsy Guillermo DO - 11/25/2024 8:04 AM EDT Reviewed BG data- responded as [...] week- thanks! Dr Guillermo documented in this encounterOhio State [facility]ing Hospital06-16-2025 Telephone encounter Note * Telephone Encounter - Piper Julian MD - 11/22/2024 12:31 PM EDT noted. We did receive a note from them at one point. She should follow up as they recommend and it is ok for her to undergo treatments during . Piper Julian MD [facility]06-16-2025 Miscellaneous Notes* Telephone Encounter - Piper Julian MD - 11/22/2024 12:31 PM EDT noted. We did receive a note from them at one point. She should follow up as they recommend and it is ok for her to undergo treatments during . Piper Julian MD documented in this encounterOhio State [facility]ing [facility]06-[facility] Note Indication Evaluation of growth, Evaluation of [...] Amniotic fluid volume 8/8 Biophysical profile score Growth Overview Exam date [...] 13 oz EFW by: Hadlock (HC-AC-FL) Extended Washhouse Worker 7.4 mm Extremities / Bony Struc FL [...] Snyder RDMS, RVT Read By: Alondra Segundo M.D.MATERNAL [id number] NoteUniversity [facility]als [facility]06-12-[facility] History of Present illness Narrative* Keshav Loving MD - 11/18/2024 5:37 PM EDT NST SUMMARY PROVIDER ASSESSMENT AND INTERPRETATION Melissa Byrne is a 29 year old female, , who is at 35w5d with an ADA of 12/18/2024, by Last Menstrual Period dating method. Indications for NST: Diabetes - Insulin Controlled Baseline: 130 Variability: Moderate Accelerations: Present 15 X 15 Decelerations: None Contractions: TOCO: None Interpretation: Reactive SIGNATURE: Keshav Loving DO documented in this encounterOhio State Harding Hospital06-12-2025 Progress note* Quick Notes - Keshav Loving MD - 11/18/2024 5:35 PM EDT SW- Add on visit after NST for [...] today - Keep scheduled follow up Keshav Lovign DO [facility]06-12-2025 Miscellaneous Notes* Quick Notes - Keshav Loving MD - 11/18/2024 5:35 PM EDT SW- Add on visit after NST for [...] up Keshav Loving DO documented in this encounterOhio State Harding Hospital06-12-2025 Instructions* Patient Instructions* Rebeca Vazquez MA - 11/18/2024 2:25 PM EDT SEQUENTIAL SCREENINGS The [facility] offers sequential screenings for women who [...] testing. It will require an appointment withour server support technician. This is not an ultrasound performed [...] the above symptoms, contact our office at [phone] and ask to speak with anurse. After hours, you can call doctors registry at [phone] OR call [facility] at [phone] ask to have the doctor director executive communications paged. If you consider this an emergency, dial 9--4 or go to your nearest emergency department. NEED HELP? Are you dealing with a violent or abusive relationship? Are you a victim of rape or sexual assult? Call [facility] ([place]) 24 hour Crisis Hotline: 462.555.3413 or 968-590-6649. MANUAL Your Guide to a Healthy manual is now on-line. Visit [email or web address] to download your free copy documented in this encounterOhio State Harding Hospital06-11-2025 NoteUniversity Hospitals [facility]06-10-2025 Telephone encounter Note* Telephone Encounter - Kelsy Guillermo DO - 11/16/2024 8:00 AM EDT Reviewed BG data- responded as [...] Will review again next week- thanks! KB [facility]06-10-2025 Miscellaneous Notes* Telephone Encounter - Kelsy Guillermo DO - 11/16/2024 8:00 AM EDT Reviewed BG data- responded as follows: Hector Cornejo I reviewed your BG data- these numbers [...] next week- thanks! KB documented in this encounterOhio State [facility]ing Hospital06-09-2025 Note Indication Evaluation of well-being Maternal obesity, BMI >30, Diabetes mellitus, History of preeclampsia Impression - Single, live, intrauterine . - presentation is cephalic. - The amniotic fluid volume is normal amount with an MVP of 2.3 cm and an VI of 7.9 cm. - The placenta is [...] Snyder RDMS, RVT Read By: Pooja Latham M.D.MATERNAL [id number] Progress note* Quick Notes - Keshav Loving MD - 11/15/2024 8:38 AM EDT SW- pt doing well. No pain, ERWIN, [...] - RTO 1 wk Keshav Loving DO [facility]06-09-2025 Miscellaneous Notes* Quick Notes - Keshav Loving MD - 11/15/2024 8:38 AM EDT SW- pt doing well. No pain, ERWIN, [...] wk Keshav Loving DO documented in this encounterOhio State Harding Hospital06-09-2025 Instructions* Patient Instructions* Rebeca Vazquez MA - 11/15/2024 8:24 AM EDT SEQUENTIAL SCREENINGS The [facility] offers sequential screenings for women who [...] testing. It will require an appointment withour server support technician. This is not an ultrasound performed [...] the above symptoms, contact our office at [phone] and ask to speak with anurse. After hours, you can call doctors registry at [phone] OR call [facility] at [phone] ask to have the doctor director executive communications paged. If you consider this an emergency, dial or go to your nearest emergency department. NEED HELP? Are you dealing with a violent or abusive relationship? Are you a victim of rape or sexual assult? Call [facility] ([place]) 24 hour Crisis Hotline: 259.857.8040 or 705-562-0524. MANUAL Your Guide to a Healthy manual is now on-line. Visit [email or web address] to download your free copy documented in this encounterOhio State Harding Hospital06-05-2025 Progress note* Quick Notes - Krys Kulkarni MD - 11/11/2024 4:47 PM EDT S: Melissa Byrne is a 29 year [...] 2 diabetes mellitus in in third trimester ([facility]) - ICD9: 648.03, 250.00, ICD10: O24.113 (primary diagnosis) - Controlled - URINE OB DIP B/O 2. pruritus, third trimester ([facility]) - ICD9: 646.83, 698.9, ICD10: O99.713, L29.9 Labs normal - URINE OB DIP B/O 3. History of pre-eclampsia - ICD9: V13.29, ICD10: Z87.59 TruBP normal - URINE OB DIP B/O 4. H/O macrosomia in infant in prior , currently ([facility]) - ICD9: V23.49, ICD10: O09.299 - URINE OB DIP B/O 5. 34 weeks gestation of ([facility]) - ICD9: V22.2, ICD10: Z3A.34 - URINE OB DIP B/O Krys Kulkarni MD [facility]06-05-2025 Miscellaneous Notes* Quick Notes - Krys Kulkarni MD - 11/11/2024 4:47 PM EDT S: Melissa Byrne is a 29 year [...] 2 diabetes mellitus in in third trimester ([facility]) - ICD9: 648.03, 250.00, ICD10: O24.113 (primary diagnosis) - Controlled - URINE OB DIP B/O 2. pruritus, third trimester ([facility]) - ICD9: 646.83, 698.9, ICD10: O99.713, L29.9 Labs normal - URINE OB DIP B/O 3. History of pre-eclampsia - ICD9: V13.29, ICD10: Z87.59 TruBP normal - URINE OB DIP B/O 4. H/O macrosomia in in prior , currently ([facility]) - ICD9: V23.49, ICD10: O09.299 - URINE OB DIP B/O 5. 34 weeks gestation of ([facility]) - ICD9: V22.2, ICD10: Z3A.34 - URINE OB DIP B/O Krys Kulkarni MD documented in this encounterOhio State [facility]ing Hospital06-05-2025 Instructions* Patient Instructions* Renetta Petersen MA - 11/11/2024 9:11 AM EDT SEQUENTIAL SCREENINGS The [facility] offers sequential screenings for women who [...] testing. It will require an appointment withour server support technician. This is not an ultrasound performed [...] the above symptoms, contact our office at [phone] and ask to speak with anurse. After hours, you can call doctors registry at [phone] OR call [facility] at [phone] ask to have the doctor director executive communications paged. If you consider this an emergency, dial 4-8-5 or go to your nearest emergency department. NEED HELP? Are you dealing with a violent or abusive relationship? Are you a victim of rape or sexual assult? Call [facility] [place] ([place]) 24 hour Crisis Hotline: 254.984.9232 or 070-534-9880. MANUAL Your Guide to a Healthy manual is now on-line. Visit [email or web address] to download your free copy documented in this encounterOhio State [facility]ing Hospital06-02-2025 Note Indication Evaluation of well-being Maternal obesity, [...] Snyder RDMS, RVT Read By: Pooja Latham M.D.MATERNAL [id number] History of Present illness Narrative* Krys Kulkarni MD - 11/05/2024 11:22 AM EDT NST SUMMARY PROVIDER ASSESSMENT AND INTERPRETATION Indications for NST: Diabetes - Insulin Controlled Baseline: 140 Variability: Moderate Accelerations: Present 15 X 15 Decelerations: None Interpretation: Reactive SIGNATURE: Krys Kulkarni MD documented in this encounterOhio State [facility]ing Hospital05-30-2025 NoteUniversity Hospitals [facility]05-30-2025 Progress note* Quick Notes - Krys Kulkarni MD - 11/05/2024 10:54 AM EDT S: Melissa Byrne is a 29 year [...] ago ASSESSMENT/PLAN: 1. 33 weeks gestation of ([facility]) - ICD9: V22.2, ICD10: Z3A.33 (primary diagnosis) PTL precautions - URINE OB DIP B/O 2. pruritus Shemar acids and LFTs ordered - URINE OB DIP B/O 3. Pre-existing type 2 diabetes mellitus in in third trimester ([facility]) - ICD9: 648.03, 250.00, ICD10: O24.113 Sees endocrine for management. Stable this week Optho complete and f/u in Jan NST and BPP weekly - URINE OB DIP B/O 4. Supervision of high risk in third trimester ([facility]) - ICD9: V23.9, ICD10: O09.93 - URINE OB DIP B/O Krys Kulkarni MD [facility]05-30-2025 Miscellaneous Notes* Quick Notes - Krys Kulkarni MD - 11/05/2024 10:54 AM EDT S: Melissa Byrne is a 29 year [...] ago ASSESSMENT/PLAN: 1. 33 weeks gestation of ([facility]) - ICD9: V22.2, ICD10: Z3A.33 (primary diagnosis) PTL precautions - URINE OB DIP B/O 2. pruritus Shemar acids and LFTs ordered - URINE OB DIP B/O 3. Pre-existing type 2 diabetes mellitus in in third trimester ([facility]) - ICD9: 648.03, 250.00, ICD10: O24.113 Sees endocrine for management. Stable this week Optho complete and f/u in Jan NST and BPP weekly - URINE OB DIP B/O 4. Supervision of high risk in third trimester ([facility]) - ICD9: V23.9, ICD10: O09.93 - URINE OB DIP B/O Krys Kulkarni MD documented in this encounterOhio State [facility]ing Hospital05-30-2025 Instructions* Patient Instructions* Rebeca Vazquez MA - 11/05/2024 10:18 AM EDT SEQUENTIAL SCREENINGS The [facility] offers sequential screenings for women who [...] testing. It will require an appointment withour server support technician. This is not an ultrasound performed [...] the above symptoms, contact our office at [phone] and ask to speak with anurse. After hours, you can call doctors registry at [phone] OR call [facility] at [phone] ask to have the doctor director executive communications paged. If you consider this an emergency, dial 9-7 or go to your nearest emergency department. NEED HELP? Are you dealing with a violent or abusive relationship? Are you a victim of rape or sexual assult? Call [facility] ([place]) 24 hour Crisis Hotline: 392.445.5227 or 501-444-9835. MANUAL Your Guide to a Healthy manual is now on-line. Visit [email or web address] to download your free copy documented in this encounterOhio State [facility]ing Hospital05-29-2025 Miscellaneous Notes* Forensic/SANE/Chava - Alicia Pitts RN - 11/04/2024 1:00 PM EDTSummary: [employer] Consult Note 11/04/24 M-Meet You Credit Negotiator Note Hospital Name: [facility] Completed by: Alicia Pitts RN Date: November 04, 2024 [email or web address] Resource Time: 2.5 hours Consult Code:A and D Consult Type: In-person outpatient Safety Concerns: No Melissa Byrne [phone] Preferred Name: Hoda OB Provider: Piper Julian Estimated Date of Delivery: 12/18/24 Designated Support People: fob- Alexi and mother- Anabella Labor Plan at time of Consult: Vaginal, Medicated, Breast milk Primary Themes During Consult: Relationship with partner, family, hogshead head matcher, caregiver Fear of unknown Primary Triggers: Restriction [...] had a brain bleed. Hoda does not havecustody of her daughter, Megan. Megan lives with [...] avoid internal monitoring if possible. Hoda would l dora to push in different positions w/ assistance- [...] how she will feel . She sees atherapist and a psychiatrist regularly. She understands who [...] lives with Alexi, who works as a housekeeper child care. The last week of the month is very hard for them. She is aware that social service is available to talk. documented in this encounterOhio State [facility]ing Hospital05-29-2025 Progress note* Forensic/SANE/MPower - Alicia Pitts RN - 11/04/2024 1:00 PM EDTSummary: Gardenia Wheeler Consult Note 11/04/24 MAnjelica Credit Negotiator Note Hospital Name: [facility] Completed by: Alicia Pitts RN Date: November 04, 2024 M-Meet You Resource Time: 2.5 hours Consult Code:A and D Consult Type: In-person outpatient Safety Concerns: No Melissa Byrne [phone] Preferred Name: Hoda OB Provider: Piper Julian Estimated Date of Delivery: 12/18/24 Designated Support People: fob- Alexi and mother- Anabella Labor Plan at time of Consult: Vaginal, Medicated, Breast milk Primary Themes During Consult: Relationship with partner, family, hogshead head matcher, caregiver Fear of unknown Primary Triggers: Restriction [...] had a brain bleed. Hoda does not havecustody of her daughter, Megan. Megan lives with [...] avoid internal monitoring if possible. Hoda would l dora to push in different positions w/ assistance- [...] how she will feel . She sees atherapist and a psychiatrist regularly. She understands who [...] lives with Alexi, who works as a housekeeper child care. The last week of the month is very hard for them. She is aware that social service is available to talk. [facility]05-29-2025 History of Present illness Narrative* Carrie Larsen, BRICE - 11/04/2024 11:00 AM EDT [facility] Medical Nutrition Therapy Follow up Visit Type: In-Person (Face to Face): [place] [facility] Nutritional Visit: MNT/DIABETES Medical Diagnosis: Type 2 [...] 191 lbs Pre- BMI: 34.9 TW lbs [place] [facility] Weight Gain Recommendations for : [...] during that - had macrosomia, delivered in [place]. -She was initially diagnosed with type 2 diabetes at age 14 -reports she does not have her top teeth and can't wear her dentures because they are too big > she is planning on calling the dentist and rescheduling appt -can struggle with hard foods such a raw vegetables and takes small bites -current GA: 13w4d -she is using the [employer] zoltan 3 plus CGM and checking BG [...] as prescribed, reports no missed doses -receives [facility] benefits -lost upper dentures with no plan [...] 2 TABLETS BY MOUTH EVERY DAYAT BEDTIME lancets (FashionStakeTOUCH DELICA PLUS LANCET) 30 gauge Use with blood glucose test four times a day. Insulin Dep? Yes insulin lispro (HUMALOG KWIKPEN INSULIN) 100 unit/mL 23 -23 - 26 units prior to each meal respectively + scale (upto 100 units/day) blood sugar diagnostic (ONETOUCH VERIO TEST STRIPS) test strip Use as instructed - TEST BLOOD SUGARS 4 TIMES DAILY Blood-Glucose Meter (FashionStakeTOUCH VERIO FLEX METER) Use to check blood glucose 4 times daily. busPIRone (BUSPAR) 15 mg tablet albuterol HFA (PROVENTIL HFA, VENTOLIN HFA) 90 mcg/actuation inhaler Inhale 2 Puffs as instructed every 6 hours as needed. VIT 10-IRON FUM-FOLIC ORAL Take by mouth. Insulin Woodland, Disposable, (BD ULTRAFINE III MINI PEN) 31 [...] of glucose and insulin in the body, andsymptoms of diabetes -Monitoring: BG targets post-, logging, [...] Larsen M.S., RDN, LD documented in this encounterOhio State [facility]ing Hospital05-29-2025 NoteUniversity Hospitals Conneaut [facility] Center05-29-2025 History of Present illness Narrative* Kelsy Guillermo DO - 11/04/2024 10:40 AM EDT Reason for consultation: f/u - type [...] 2 diabetes antepartum. Her initial visit with was 05/03. Pt has 7 year old daughter- had DM during that - had macrosomia, delivered in [place]. She was initially diagnosed with type 2 [...] overall. PAST MEDICAL HISTORY Diagnosis Date Asthma ([facility]) Bipolar H/O macrosomia in infant in prior , currently ([facility]) 05/07/2024 Herpes simplex type 2 (HSV-2) infection affecting , antepartum, unspecified trimester ([facility]) 04/19/2024 Hyperlipidemia LGA (large for gestational age) ([facility]) 12/23/2016 12/23/16 - >95% Polyhydramnios ([facility]) 01/01/2017 Pre-existing type 2 diabetes mellitus in in first trimester ([facility]) 06/15/2024 First trimester Hgb A1c 10.5%, now follows with Dr. Guillermo Recurrent UTI Type 2 diabetes mellitus ([facility]) PAST SURGICAL HISTORY Procedure Laterality Date CHOLECYSTECTOMY [...] pen 90 units at bedtime 45mL 11 aspirin, enteric coated (ASPIRIN, ENTERIC COATED) 81 mg EC tablet TAKE 2 TABLETS BY MOUTH EVERY DAYAT BEDTIME 180 tablet 1 lancets ([employer]UCH DELICA PLUS LANCET) 30 gauge Use with blood glucose test four times a day. Insulin Dep? Yes 100 Each 11 insulin lispro (HUMALOG KWIKPEN INSULIN) 100 unit/mL 23 -23 - 26 units prior to each meal respectively + scale (upto 100 units/day) 45 mL 11 blood sugar diagnostic ([employer]UCH VERIO TEST STRIPS) test strip Use as instructed - TEST BLOOD SUGARS 4 TIMES DAILY 150 Each 11 Blood-Glucose Meter (Pharmaxis VERIO FLEX METER) Use to check blood glucose 4 times daily. 1 Each 0 busPIRone (BUSPAR) 15 mg tablet albuterol HFA (PROVENTIL HFA, VENTOLIN HFA) 90 mcg/actuation inhaler Inhale 2 Puffs as instructed every 6 hours as needed. VIT 10-IRON FUM-FOLIC ORAL Take by mouth. Insulin [place], Disposable, (BD ULTRAFINE III MINI PEN) 31 [...] data weekly ( ) as you are doing for the duration [...] which included preparing to see the patient, [id number] patient care, completing clinical documentation, obtaining and/or reviewing separately obtained history, performing a medically appropriate examination, counseling and educating the pat ient/family/caregiver, and ordering medications, tests, or procedures. Kelsy Guillermo DO documented in this encounterOhio State [facility]ing Hospital05-29-2025 NoteUniversity Hospitals Conneaut [facility] Center05-29-2025 Instructions* Patient Instructions* Kelsy Guillermo DO - 11/04/2024 10:03 AM EDT 1) check your sugars fasting (60-90 mg/dL) and 2 hours post meal (less than 120 mg/dL) 2) forward me your blood glucose data weekly ( ) as you are doing for the duration [...] (virtual or in person) documented in this encounterOhio State Harding Hospital05-28-2025 Telephone encounter Note * Telephone Encounter - Charlette Starkey RN - 11/03/2024 10:31 AM EDT Order signed and faxed. Charlette Starkey RN [facility]05-28-2025 Miscellaneous Notes* Telephone Encounter - Charlette Starkey RN - 11/03/2024 10:31 AM EDT Order signed and faxed. Charlette Starkey RN * Telephone Encounter - Charlette Starkey RN - 10/29/2024 2:44 PM EDT Breast pump order received from [employer]. To RR to sign. Charlette Starkey RN documented in this encounterOhio State Harding Hospital05-28-2025 Telephone encounter Note * Telephone Encounter - Piper Julian MD - 11/03/2024 10:13 AM EDT noted, we will encourage f/u w/ optho. Piper Julian MD [facility]05-28-2025 Miscellaneous Notes* Telephone Encounter - Piper Julian MD - 11/03/2024 10:13 AM EDT noted, we will encourage f/u w/ optho. Piper Julian MD * Telephone Encounter - Brenda Lares RN - 11/02/2024 11:30 AM EDT I called patient's retinal specialist and spoke with nurse Smith, in Dr Holloway's office at [facility] ph [phone] @ the request of Dr Pooja Latham. Dr Latham reviewed the letter that was sent from Dr Holloway from visit 10/18/2024. In the body of the letter was a statement that patient can no longer have steroid injections per MFM. I spoke with nurse and informed her that Alfredito said patient may have steroid injections. Nurse said she would inform doctor. Letter has been scanned into [facility]. documented in this encounterOhio State Harding Hospital05-27-2025 Telephone encounter Note * Telephone Encounter - Brenda Lares RN - 11/02/2024 11:30 AM EDT I called patient's retinal specialist and spoke with nurse Sarah, in Dr Holloway's office at [facility] ph [phone] @ the request of Dr Pooja Latham. Dr Latham reviewed the letter that was sent from Dr Holloway from visit 10/18/2024. In the body of the letter was a statement that patient can no longer have steroid injections per MFM. I spoke with nurse and informed her that Alfredito said patient may have steroid injections. Nurse said she would inform doctor. Letter has been scanned into [employer] [facility]. [facility]05-27-2025 NoteHNO ID: [id number] Author: WILLIAM GRAMAJO MD Service: ? Author Type: Physician Type: Progress Notes Filed: 11/02/2024 11:32 Note Text: [facility]Cle[facility]Mer[facility] History of Present illness Narrative* William Gramajo MD - 11/02/2024 11:30 AM EDT N/a documented in this encounterOhio State Harding Hospital05-27-2025 Progress note* Quick Notes - William Gramajo MD - 11/02/2024 11:02 AM EDT KJ - S: Hoda denies LOF, contractions or vaginal bleeding. O: 33w3d, see flow sheet SENSITIVE EXAM: Sensitive exam not performed. A/P: Assessment & Plan Pre-existing type 2 diabetes mellitus in in third trimester ([facility]) Managed by . Patient reports overall good control. Orders: URINE OB DIP B/O History of pre-eclampsia Continue aspirin Orders: URINE OB DIP B/O H/O macrosomia in in prior , currently ([facility]) EFW on growth US shows AGA and expected to be smaller than 1st baby. Growth US with MFM today. Orders: URINE OB DIP B/O 33 weeks gestation of ([facility]) Orders: URINE OB DIP B/O Request for sterilization Title 19 papers signed today Herpes simplex type 2 (HSV-2) infection affecting , antepartum, unspecified trimester ([facility]) On acyclovir prophylaxis William Gramajo MD [facility]05-27-2025 Miscellaneous Notes* Quick Notes - William Gramajo MD - 11/02/2024 11:02 AM EDT KJ - S: Hoda denies LOF, contractions or vaginal bleeding. O: 33w3d, see flow sheet SENSITIVE EXAM: Sensitive exam not performed. A/P: Assessment & Plan Pre-existing type 2 diabetes mellitus in in third trimester ([facility]) Managed by . Patient reports overall good control. Orders: URINE OB DIP B/O History of pre-eclampsia Continue aspirin Orders: URINE OB DIP B/O H/O macrosomia in infant in prior , currently ([facility]) EFW on growth US shows AGA and expected to be smaller than 1st baby. Growth US with MFM today. Orders: URINE OB DIP B/O 33 weeks gestation of ([facility]) Orders: URINE OB DIP B/O Request for sterilization Title 19 papers signed today Herpes simplex type 2 (HSV-2) infection affecting , antepartum, unspecified trimester ([facility]) On acyclovir prophylaxis William Gramajo MD documented in this encounterOhio State Harding Hospital05-27-2025 Instructions* Patient Instructions* Renetta Petersen MA - 11/02/2024 10:43 AM EDT SEQUENTIAL SCREENINGS The [facility] offers sequential screenings for women who [...] testing. It will require an appointment withour server support technician. This is not an ultrasound performed [...] the above symptoms, contact our office at [phone] and ask to speak with anurse. After hours, you can call doctors registry at [phone] OR call [facility] at [phone] ask to have the doctor director executive communications paged. If you consider this an emergency, dial 9-1-0 or go to your nearest emergency department. NEED HELP? Are you dealing with a violent or abusive relationship? Are you a victim of rape or sexual assult? Call [facility] ([place]) 24 hour Crisis Hotline: 275.607.6286 or 993-201-9456. MANUAL Your Guide to a Healthy manual is now on-line. Visit [email or web address] to download your free copy documented in this encounterOhio State [facility]ing Hospital05-27-2025 Note Indication Evaluation of well-being Maternal obesity, [...] sex: female. Performed By: Idania Snyder RDMS, T Read By: Pooja Latham M.D.MATERNAL [id number] Telephone encounter Note* Telephone Encounter - Charlette Starkey RN - 10/29/2024 2:44 PM EDT Breast pump order received from [employer]. To RR to sign. Charlette Starkey RN [facility]05-19-2025 Progress note* Quick Notes - Piper Julian MD - 10/25/2024 10:20 AM EDT RR- VB No. LOF No. CTXS No. [...] of high risk in third trimester (HCC) Orders: ECG COMPLETE [...] go back unless visual changes but want toconfirm this cont acyclovir for HSV prophylaxis Piper Julian M.D. [facility]05-19-2025 Miscellaneous Notes* Quick Notes - Piper Julian MD - 10/25/2024 10:20 AM EDT RR- VB No. LOF No. CTXS No. Movement: present. Other c/o: exposure 2 weeks ago to parvo. She denies illness symptoms Medication list reviewed. SENSITIVE EXAM: Sensitive exam not performed. Physical Exam See Flow Sheet Abd: soft, nontender, gravid Ext: edema: 1+ A/P 32w2d Estimated Date of Delivery: 12/18/24 Assessment & Plan Pre-existing type 2 diabetes mellitus in in third trimester ([facility]) Orders: ECG COMPLETE URINE OB DIP B/O PARVOVIRUS B19 IGG+M; Future COMPLETE BLOOD COUNT; Future COMPREHENSIVE METABOLIC PANEL; Future Supervision of high risk in third trimester (HCC) Orders: ECG COMPLETE [...] go back unless visual changes but want toconfirm this cont acyclovir for HSV prophylaxis Piper Julian M.D. documented in this encounterOhio State Harding Hospital05-19-2025 NoteUniversity [facility]als [facility]05-19-20[facility] History of Present illness Narrative* Piper Julian MD - 10/25/2024 10:19 AM EDT NST SUMMARY PROVIDER ASSESSMENT AND INTERPRETATION Melissa Byrne is a 29 year old female, , who is at 32w2d with an ADA of 12/18/2024, by Last Menstrual Period dating method. Indications for NST: Diabetes - Insulin Controlled Baseline: 145 Variability: Moderate Accelerations: Present 15 X 15 Decelerations: None Contractions: TOCO: None Interpretation: Reactive SIGNATURE: Piper Julian MD documented in this encounterOhio State Harding Hospital05-19-2025 Instructions* Patient Instructions* Renetta Petersen MA - 10/25/2024 9:26 AM EDT SEQUENTIAL SCREENINGS The [facility] offers sequential screenings for women who [...] testing. It will require an appointment withour server support technician. This is not an ultrasound performed [...] the above symptoms, contact our office at [phone] and ask to speak with anurse. After hours, you can call doctors registry at [phone] OR call [facility] at [phone] ask to have the doctor director executive communications paged. If you consider this an emergency, dial 9-1-7 or go to your nearest emergency department. NEED HELP? Are you dealing with a violent or abusive relationship? Are you a victim of rape or sexual assult? Call [facility] ([place]) 24 hour Crisis Hotline: 321.208.4049 or 541-375-7463. MANUAL Your Guide to a Healthy manual is now on-line. Visit [email or web address] to download your free copy documented in this encounterOhio State Harding Hospital05-13-2025 Telephone encounter Note * Telephone Encounter - Kelsy Guillermo DO - 10/19/2024 6:11 PM EDT Reviewed BG data- responded as [...] Will review again next week- thanks! KB [facility]05-13-2025 Miscellaneous Notes* Telephone Encounter - Kelsy Guillermo DO - 10/19/2024 6:11 PM EDT Reviewed BG data- responded as [...] next week- thanks! KB documented in this encounterOhio State Harding Hospital05-12-2025 Progress note* Quick Notes - Whit Morton MD - 10/18/2024 4:06 PM EDT DM-Pt doing well. Denies vaginal Bleeding, Leaking fluid, or regular Contractions. Pt reports good movement Physical Exam: Gen: female in no apparent distress Abd: soft, Gravid. Non tender to palpation. See flow sheet @ 31 weeks Assessment & Plan Supervision of high risk in third trimester ([facility]) Orders: URINE OB DIP B/O Pre-existing type 2 diabetes mellitus in in third trimester ([facility]) Sees Endocrinology - states pretty well controlled no adjustment on Insulin per endocrinology last A1c 5.2 down from 7.9 Orders: URINE OB DIP B/O Herpes simplex type 2 (HSV-2) infection affecting , antepartum, unspecified trimester ([facility]) Taking acyclovir H/O macrosomia in in prior , currently ([facility]) Growth us scheduled History of pre-eclampsia Continue ASA 31 weeks gestation of ([facility]) Kick counts and labor reviewed NSTs and BPP scheduled Orders: URINE OB DIP B/O Whit Patel MD [facility]05-12-2025 Miscellaneous Notes* Quick Notes - Whit Morton MD - 10/18/2024 4:06 PM EDT DM-Pt doing well. Denies vaginal Bleeding, Leaking fluid, or regular Contractions. Pt reports good movement Physical Exam: Gen: female in no apparent distress Abd: soft, Gravid. Non tender to palpation. See flow sheet @ 31 weeks Assessment & Plan Supervision of high risk in third trimester ([facility]) Orders: URINE OB DIP B/O Pre-existing type 2 diabetes mellitus in in third trimester ([facility]) Sees Endocrinology - states pretty well controlled no adjustment on Insulin per endocrinology last A1c 5.2 down from 7.9 Orders: URINE OB DIP B/O Herpes simplex type 2 (HSV-2) infection affecting , antepartum, unspecified trimester ([facility]) Taking acyclovir H/O macrosomia in infant in prior , currently (HCC) Growth us scheduled History of pre-eclampsia Continue ASA 31 weeks gestation of ([facility]) Kick counts and labor reviewed NSTs and BPP scheduled Orders: URINE OB DIP B/O Whit Patel MD documented in this encounterOhio State Harding Hospital05-12-2025 Instructions* Patient Instructions* Rebeca Vazquez MA - 10/18/2024 1:34 PM EDT SEQUENTIAL SCREENINGS The [facility] offers sequential screenings for women who [...] testing. It will require an appointment withour server support technician. This is not an ultrasound performed [...] the above symptoms, contact our office at [phone] and ask to speak with anurse. After hours, you can call doctors registry at [phone] OR call [facility] at [phone] ask to have the doctor director executive communications paged. If you consider this an emergency, dial 0 or go to your nearest emergency department. NEED HELP? Are you dealing with a violent or abusive relationship? Are you a victim of rape or sexual assult? Call [facility] ([facility] 24 hour Crisis Hotline: 158.115.5233 or 619-506-7774. MANUAL Your Guide to a Healthy manual is now on-line. Visit [email or web address] to download your free copy documented in this encounterOhio State Harding Hospital05-10-2025 History and physical note [facility] Medical Records Department [address] [place] [address] OB Triage Physician Note 10/16/24 1838 MR#: [id number] Acct: [id number] Name: MELISSA BYRNE Rep #:[id number] : 1995 29 From: Mariajose Nickerson CNM PCP: Dr. Jamari Byrne MD Status:REG CLI Y Location: [id number] HPI - General HPI Narrative MELISSA BYRNE, [...] Reaction Status Date / Time [facility] AdvReac Other Verified 10/16/24 17:43 metoclopramide (From [...] upper abdominal pain and tightening at times. Increasedfetal movements today. Has not drank a lot [...] Julian involved with plan of care 10/16/242000 ts CNM> Date _ Mariajose Nickerson CNM Cosigner Signature (if applicable): Date CC: JULIO Nickerson; Dr. Jamari Byrne MD ~ Signed [facility]05-06-2025 NoteHNO ID: [id number] Author: PAMELA HASKINS MD Service: ? Author Type: Physician Type: Progress Notes Filed: 10/13/2024 09:11 Note Text: Dr. Piper Julian NAME: Melissa Byrne CLINIC Number.: [id number] Date of : 1995 Date of Visit: [...] which included preparing to see the patient, [id number] patient care, completing clinical documentation, obtaining and/or reviewing separately obtained history, performing a medically appropriate examination, counseling and educating the patient/family/caregiver, ordering medications, tests, or procedures, communicating with other HCPs (not separately reported), independently interpreting results (not separately reported), communicating results to the patient/family/caregiver, and care coordination (not separately reported). Sincerely, Dr. Pamela CabreraCobre [facility] Center[facility]acel[facility]05-06-2025 History of Present illness Narrative* Pamela Haskins MD - 10/12/2024 6:[address] Piper Julian NAME: Melissa J Chavez CLINIC Number.: [id number] Date of : 1995 Date of Visit: [...] disease. Initial echocardiogram at 23 weeks 3 daysgestation was suboptimal and she returns today for [...] which included preparing to see the patient, [id number] patient care, completing clinical documentation, obtaining and/or reviewing separately obtained history, performing a medically appropriate examination, counseling and educating the pat ient/family/caregiver, ordering medications, tests, or procedures, communicating with other HCPs (not separately reported), independently interpreting results (not separately reported), communicatingresults to the patient/family/caregiver, and care coordination (not separately reported). Sincerely, Dr. Pamela Haskins documented in this encounterOhio State Harding Hospital05-02-2025 Telephone encounter Note * Telephone Encounter - Kelsy Guillermo DO - 10/08/2024 3:47 PM EDT Reviewed B data- responded as follows: Good [...] Will review again next week- thanks! KB [facility]05-02-2025 Miscellaneous Notes* Telephone Encounter - Kelsy Guillermo DO - 10/08/2024 3:47 PM EDT Reviewed B data- responded as follows: Good [...] next week- thanks! NILES documented in this encounterOhio State Harding Hospital04-28-2025 Progress note* Quick Notes - Piper Julian MD - 10/04/2024 11:11 AM EDT RR- VB No. LOF No. CTXS No. [...] CULTURE, URINE; Future 29 weeks gestation of ([facility]) Orders: ECG COMPLETE; Future NON-STRESS TEST; Standing PROTEIN / CREATININE RATIO; Future BACTERIAL CULTURE, URINE; Future Pre-existing type 2 diabetes mellitus in in third trimester ([facility]) Orders: ECG COMPLETE; Future NON-STRESS TEST; Standing PROTEIN / CREATININE RATIO; Future BACTERIAL CULTURE, URINE; Future Supervision of high risk in third trimester ([facility]) Orders: ECG COMPLETE; Future NON-STRESS TEST; Standing PROTEIN / CREATININE RATIO; Future BACTERIAL CULTURE, URINE; Future 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 Pre-existing type 2 diabetes mellitus in in first trimester ([facility]) follows w/ endocrine, hgba1 c controlled dm retinopathy - has f/u w/ optho ecg ordered/encouraged check prot/creat ratio today 28 week labs done Tobacco smoking complicating in first trimester ([facility]) decreased to 2 cig a day, encouraged to quit, support offered History of recurrent UTI (urinary tract infection) recheck culture today 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, 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, unspecifiedwhether skilled nursing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 ([facility]) f/u optho as scheduled Herpes simplex type 2 (HSV-2) infection affecting , antepartum, unspecified trimester ([facility]) prophylaxis ordered, no outbreaks recently taking abx for BV on PNV and ASA start nsts at 32 weeks wait for MFM to read US repeat US in 4 weeks tdap today Medical Decision Making: Problems: Moderate: 1+ chronic illnesses with change Data: Unique test(s) ordered: 3+ Medical Decision Making Level: 4 - Moderate Piper Julian M.D. [facility]04-28-2025 Miscellaneous Notes* Quick Notes - Piper Julian MD - 10/04/2024 11:11 AM EDT RR- VB No. LOF No. CTXS No. [...] CULTURE, URINE; Future 29 weeks gestation of ([facility]) Orders: ECG COMPLETE; Future NON-STRESS TEST; Standing PROTEIN / CREATININE RATIO; Future BACTERIAL CULTURE, URINE; Future Pre-existing type 2 diabetes mellitus in in third trimester ([facility]) Orders: ECG COMPLETE; Future NON-STRESS TEST; Standing PROTEIN / CREATININE RATIO; Future BACTERIAL CULTURE, URINE; Future Supervision of high risk in third trimester ([facility]) Orders: ECG COMPLETE; Future NON-STRESS TEST; Standing PROTEIN / CREATININE RATIO; Future BACTERIAL CULTURE, URINE; Future 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 Pre-existing type 2 diabetes mellitus in in first trimester ([facility]) follows w/ endocrine, hgba1 c controlled dm retinopathy - has f/u w/ optho ecg ordered/encouraged check prot/creat ratio today 28 week labs done Tobacco smoking complicating in first trimester (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) f/u optho as scheduled Herpes simplex type [...] Moderate Piper Julian M.D. documented in this encounterOhio State Harding Hospital04-28-2025 Instructions* Patient Instructions* Teri Jack MA - 10/04/2024 11:10 AM EDT SEQUENTIAL SCREENINGS The [facility] offers sequential screenings for women who [...] testing. It will require an appointment withour server support technician. This is not an ultrasound performed [...] the above symptoms, contact our office at [phone] and ask to speak with anurse. After hours, you can call doctors registry at [phone] OR call [facility] at [phone] ask to have the doctor director executive communications paged. If you consider this an emergency, dial 9--1 or go to your nearest emergency department. NEED HELP? Are you dealing with a violent or abusive relationship? Are you a victim of rape or sexual assult? Call [facility] ([place]) 24 hour Crisis Hotline: 154.612.8847 or 181-088-3347. MANUAL Your Guide to a Healthy manual is now on-line. Visit [email or web address] to download your free copy documented in this encounterOhio State Harding Hospital04-21-2025 Telephone encounter Note * Telephone Encounter - Juana Terrazas RN - 09/27/2024 4:43 PM EDT Simtrolhart message sent to Pt and Pt read on 09/27/24. Juana Terrazas RN [facility]04-21-2025 Miscellaneous Notes* Telephone Encounter - Juana Terrazas RN - 09/27/2024 4:43 PM EDT Simtrolhart message sent to Pt and Pt read on 09/27/24. Juana Terrazas RN * Telephone Encounter - Krys Kulkarni MD - 09/27/2024 1:43 PM EDT Rx sent * Telephone Encounter - Juana Terrazas RN - 09/27/2024 12:03 PM EDT 28w2d Pt calling as she saw she was + for Bacterial Vaginosis and asking for tx plan. Dx: Vaginal discharge Specimen Information: Vagina; Swab 0 Result Notes Component Ref Range & Units 3 d ago Bacterial vaginosis Not detected Detected Abnormal Resulting Agency CCM Specimen Collected: 09/24/24 9:17 AM EDT Please review in LEE absence. Juana Terrazas RN documented in this encounterOhio State Harding Hospital04-21-2025 Telephone encounter Note * Telephone Encounter - Krys Kulkarni MD - 09/27/2024 1:43 PM EDT Rx sent [facility]04-21-2025 Telephone encounter Note* Telephone Encounter - Juana Terrazas RN - 09/27/2024 12:03 PM EDT 28w2d Pt calling as she saw she was + for Bacterial Vaginosis and asking for tx plan. Dx: Vaginal discharge Specimen Information: Vagina; Swab 0 Result Notes Component Ref Range & Units 3 d ago Bacterial vaginosis Not detected Detected Abnormal Resulting Agency CCM Specimen Collected: 09/24/24 9:17 AM EDT Please review in LEE absence. Juana Terrazas RN [facility]04-18-2025 Evaluation note* Diagnosis Onset Date Resolution Status Admit Date 27 weeks gestation of acut e September 24, 2024 1:48pm Uterine irritability acute Apri l 2024 1:48pm 31 weeks gestation of acut e October 16, 2024 5:10pm Asthma acute October 16, 2024 5:10pm Bipolar 1 disorder acute October 162024 5:10pm History of herpes genitalis acute October 16, 2024 5:10pm Obesity affecting acute October 16, 2024 5:10pm Type 2 diabetes mellitus affecting , antepartum acute October 16, 2024 5:10pm [facility] Work Phone: 1(964) 770-956104-18-2025 Evaluation note* Diagnosis Onset Date Resolution Status Admit Date 27 weeks gestation of inac tive September 24, 2024 1:48pm Uterine irritability inactive Apri l 2024 1:48pm Asthma acute October 16, 2024 5:10pm Bipolar 1 disorder acute October 162024 5:10pm History of herpes genitalis acute October 16, 2024 5:10pm Obesity affecting acute October 16, 2024 5:10pm Type 2 diabetes mellitus affecting , antepartum acute October 16, 2024 5:10pm 31 weeks gestation of inac tiOctober 16, 2024 5:10pm Obesity affecting acute November 15, 2024 3:32pm 35 weeks gestation of inac tive November 15, 2024 3:32pm False labor inactive November 15 3:32pm 38 weeks gestation of acut e December 07, 2024 11:00am Asthma acute December 07, 2024 11:00am Bipolar 1 disorder acute December 072024 11:00am Care and examination of lactating mother acute December 07, 2024 11:00am Diabetes acute December 07, 2024 11:00am History of herpes genitalis acute December 07, 2024 11:00am Obesity affecting acute December 07, 2024 11:00am (spontaneous vaginal delivery) acute December 07, 2024 1 1:00am Type 2 diabetes mellitus affecting , antepartum acute December 07, 2024 11:00am [facility] Work Phone: 1(702) 674-428204-18-2025 Evaluation note* Diagnosis Onset Date Resolution Status Admit Date 27 weeks gestation of [facility] tiSeptember 24, 2024 1:48pm Uterine irritability inactive Apri l 2024 1:48pm Asthma acute October 16, 2024 5:10pm Bipolar 1 disorder acute October 162024 5:10pm History of herpes genitalis acute October 16, 2024 5:10pm Obesity affecting acute October 16, 2024 5:10pm Type 2 diabetes mellitus affecting , antepartum acute October 16, 2024 5:10pm 31 weeks gestation of ina tiOctober 16, 2024 5:10pm Obesity affecting acute November 15, 2024 3:32pm 35 weeks gestation of ina tiNovember 15, 2024 3:32pm False labor inactive November 15 3:32pm 38 weeks gestation of acut e December 07, 2024 11:00am Asthma acute December 07, 2024 11:00am Bipolar 1 disorder acute December 072024 11:00am Care and examination of lactating mother acute December 07, 2024 11:00am Diabetes acute December 07, 2024 11:00am History of herpes genitalis acute December 07, 2024 11:00am Obesity affecting acute December 07, 2024 11:00am (spontaneous vaginal delivery) acute December 07, 2024 1 1:00am Type 2 diabetes mellitus affecting , antepartum acute December 07, 2024 11:00am Asthma acute December 16 7:10pm Bipolar 1 disorder acute December 072024 7:10pm Headache acute December 16 7:10pm Nausea & vomiting acute December 162024 7:10pm Status post vaginal delivery acute December 16, 2024 7:10pm Type 2 diabetes mellitus acute December 16, 2024 7:10pm [facility] Work Phone: 1(586) 683-943204-18-2025 Telephone encounter Note* Telephone Encounter - Kelsy [...] Will review again next week- thanks! KB [facility]04-18-[facility] Miscellaneous Notes* Telephone Encounter - Kelsy [...] next week- thanks! KB documented in this encounterOhio State Harding Hospital04-18-2025 NoteUniversity [facility]als [facility]04-18-2025 History of Present illness Narrative* Leonie Waldron APRN.CNM - 09/24/2024 8:55 AM EDT LEE-S: Melissa Byrne is a 29 year old [...] discussed with the Patient or Patient's Authorized Manager Fixed Income. Asapplicable, any other physician, advance practice provider, medical student, or other health professional student that will be observing or involved in the sensitive examination for educational or training purposes was discussed with the Patient or Authorized Manager Fixed Income. The Patient or Authorized Manager Fixed Income has agreed to proceed with the sensitive [...] scheduled Leonie Waldron APRN.CNM documented in this encounterOhio State Harding Hospital04-18-2025 Telephone encounter Note * Telephone Encounter - Faina Levin MA - 09/24/2024 8:44 AM EDT [facility]Touch test strips were sent to [facility], patient requesting [facility]. Sent patient mychart message to contact [facility] to fill at that location. [facility]04-18-2025 Miscellaneous Notes* Telephone Encounter - Faina Levin MA - 09/24/2024 8:44 AM EDT OneTouch test strips were sent to [facility], patient requesting [facility]. Sent patient mychart message to contact [facility] to fill at that location. documented in this encounterOhio State Harding Hospital04-18-2025 Instructions* Patient Instructions* Thor Vinson MA - 09/24/2024 8:41 AM EDT SEQUENTIAL SCREENINGS The [facility] offers sequential screenings for women who [...] testing. It will require an appointment withour server support technician. This is not an ultrasound performed [...] the above symptoms, contact our office at [phone] and ask to speak with anurse. After hours, you can call doctors registry at [phone] OR call [facility] at [phone] ask to have the doctor director executive communications paged. If you consider this an emergency, dial 9-1-1 or go to your nearest emergency department. NEED HELP? Are you dealing with a violent or abusive relationship? Are you a victim of rape or sexual assult? Call [facility] ([place]) 24 hour Crisis Hotline: 781.617.5022 or 671-044-7821. MANUAL Your Guide to a Healthy manual is now on-line. Visit [email or web address] to download your free copy documented in this encounterOhio State Harding Hospital04-18-2025 NoteUniversity Hospitals [facility]aut [facility] Center04-18-2025 History of Present illness Narrative* Mary Blackwell [...] vaginal leaking, bleeding, contractions. documented in this encounterOhio State Harding Hospital04-14-2025 Instructions* Patient Instructions* Kelsy Guillermo DO [...] f/u (prefers in person). documented in this encounterOhio State Harding Hospital04-14-2025 History of Present illness Narrative* Kelsy [...] DM during thatpregnancy- had macrosomia, delivered in [place]. She was initially diagnosed with type 2 [...] overall. PAST MEDICAL HISTORY Diagnosis Date Asthma ([facility]) Bipolar H/O macrosomia in infant in prior , currently ([facility]) 05/07/2024 Herpes simplex type 2 (HSV-2) infection affecting , antepartum, unspecified trimester ([facility]) 04/19/2024 Hyperlipidemia LGA (large for gestational age) infant ([facility]) 12/23/2016 12/23/16 - >95% Polyhydramnios ([facility]) 01/01/2017 Pre-existing type 2 diabetes mellitus in in first trimester ([facility]) 06/15/2024 First trimester Hgb A1c 10.5%, now follows with Dr. Guillermo Recurrent UTI Type 2 diabetes mellitus ([facility]) PAST SURGICAL HISTORY Procedure Laterality Date CHOLECYSTECTOMY [...] 90 units at bedtime 45mL 11 lancets (FashionStakeTOUCH DELICA PLUS LANCET) 30 gauge Use with [...] 10-IRON FUM-FOLIC ORAL Take by mouth. Insulin Woodland, Disposable, (BD ULTRAFINE III MINI PEN) 31 [...] forward me your blood glucose data weekly ([email or web address]) as you are doing- 3) [...] which included preparing to see the patient, [id number] patient care, completing clinical documentation, obtaining and/or reviewing separately obtained history, performing a medically appropriate examination, counseling and educating the pat ient/family/caregiver, and ordering medications, tests, or procedures. Kelsy Guillermo DO documented in this encounterOhio State Harding Hospital04-14-2025 NoteUniversity Hospitals [facility]04-05-2025 Telephone encounter Note* Telephone Encounter - Kelsy [...] review again next week- thanks! Dr Guillermo [facility]04-05-2025 Miscellaneous Notes* Telephone Encounter - Kelsy [...] week- thanks! Dr Guillermo documented in this encounterOhio State Harding Hospital04-01-2025 Telephone encounter Note * Telephone Encounter - Kelsy Guillermo DO - 09/07/2024 2:11 PM EDT Reviewed BG data- responded as follows: Hector Cornejo I reviewed your BG data- your more [...] less insulin. Will review again next week- ángel CAGE [facility]04-01-2025 Miscellaneous Notes* Telephone Encounter - Kelsy Guillermo DO - 09/07/2024 2:11 PM EDT Reviewed BG data- responded as follows: Hector Cornejo I reviewed your BG data- your more [...] less insulin. Will review again next week- ángel CAGE documented in this encounterOhio State Harding Hospital04-01-2025 Telephone encounter Note * Telephone Encounter - Amelia Rose RN - 09/07/2024 12:46 PM EDT Spoke to patient and advised as below. Patient verbalized understanding. [facility]04-01-2025 Miscellaneous Notes* Telephone Encounter - Amelia [...] test will not change her management KB * Telephone Encounter - Kim Gross - 09/07/2024 12:09 PM EDT Hoda is calling Kelsy Guillermo DO today States her OB office ordered her a glucose test but she is asking Dr Guillermo if that is something sheshould have done Please advise Patient has been identified by name and birthdate. Duration of symptoms: N/A Person calling: self Call patient at: at home [phone] (home) [phone] (cell) Was an appointment scheduled: No Closing statement: Results or non-symptom based questions: Thank you for calling [facility], your call will be returned within the next business day. Kim East documented in this encounterOhio State Harding Hospital04-01-2025 Telephone encounter Note * Telephone Encounter - Kelsy Guillermo DO - 09/07/2024 12:39 PM EDT Please advise her that she does not need to do glucose tolerance testing- she is already checking BG/taking insulin- so this test will not change her management KB [facility]04-01-2025 Telephone encounter Note* Telephone Encounter - [...] calling: self Call patient at: at home [phone] (home) [phone] (cell) Was an appointment scheduled: No Closing statement: Results or non-symptom based questions: Thank you for calling [facility], your call will be returned within the next business day. Kim East [facility]04-01-2025 Progress note* Quick Notes - Ronaldo Rubio MD - 09/07/2024 11:15 AM EDT Patient at 25w 3 days, Type II Diabetic followed by endocrine. Reports FBSs ~ 90-95, and 2hrs Endocrine appointment 09/14. Denies ctrx, bleeding, lof labs today echo 5/6 rto 2 weeks Ronaldo Rubio MD [facility] Work Phone: 1(447) 893-116104-01-2025 Miscellaneous Notes* Quick Notes - Ronaldo Rubio MD - 09/07/2024 11:15 AM EDT Patient at 25w 3 days, Type II Diabetic followed by endocrine. Reports FBSs ~ 90-95, and 2hrs </= 120 (no book with her) Endocrine appointment 09/14. Denies ctrx, bleeding, lof labs today echo 10/12 rto 2 weeks Ronaldo Rubio MD documented in this encounterOhio State Harding Hospital04-01-2025 Instructions* Patient Instructions* Sundeep Salvador MA - 09/07/2024 10:40 AM EDT SEQUENTIAL SCREENINGS The [facility] offers sequential screenings for women who [...] testing. It will require an appointment withour server support technician. This is not an ultrasound performed [...] the above symptoms, contact our office at [phone] and ask to speak with anurse. After hours, you can call doctors registry at [phone] OR call [facility] at [phone] ask to have the doctor director executive communications paged. If you consider this an emergency, dial 9-1-1 or go to your nearest emergency department. NEED HELP? Are you dealing with a violent or abusive relationship? Are you a victim of rape or sexual assult? Call [facility] ([place]) 24 hour Crisis Hotline: 344.154.2888 or 608-516-6409. MANUAL Your Guide to a Healthy manual is now on-line. Visit [email or web address] to download your free copy documented in this encounterOhio State Harding Hospital03-31-2025 History of Present illness Narrative* Jamari [...] to Dr Groves after Maternal med in [facility] every 4 week Quit smoking but down to 2 cig per day Stress living arrangements Will try to breast feeding Receives [facility] Bipolar depression Rx Dr Jackson 1 month [...] all orders for this visit: Exercise-induced asthma ([facility]) - albuterol 90 mcg/actuation inhaler; INHALE 1 [...] if she stop smoking [facility]St[facility] Work Phone: 1(450) 877-989903-31-2025 Telephone encounter Note* Telephone Encounter - Idania Murphy RN - 09/06/2024 9:48 AM EDT Request received from pharmacy for 90 day supply of aspirin Rx. Patient 25w2d, last seen in office on 08/10/24. Idania Murphy RN [facility]03-31-2025 Miscellaneous Notes* Telephone Encounter - Idania Murphy RN - 09/06/2024 9:48 AM EDT Request received from pharmacy for 90 day supply of aspirin Rx. Patient 25w2d, last seen in office on 08/10/24. Idania Murphy RN documented in this encounterOhio State Harding Hospital03-28-2025 Note Indication Follow-up evaluation to complete [...] 6 oz EFW by: Hadlock (HC-AC-FL) Extended Washhouse Worker 6.2 mm CM 8.6 mm 97% Nicolaides [...] RDMS, RVT Read By: Mario Martin M.D.MATERNAL [id number] Telephone encounter Note* Telephone Encounter - Kelsy Guillermo DO - 08/30/2024 8:42 AM EDT Reviewed BG data- responded as follows: Hector Cornejo I reviewed your BG data- Lets increase [...] Will review again next week- thanks! KB [facility]03-24-2025 Miscellaneous Notes* Telephone Encounter - Kelsy Guillermo DO - 08/30/2024 8:42 AM EDT Reviewed BG data- responded as follows: Hector Cornejo I reviewed your BG data- Lets increase [...] next week- thanks! KB documented in this encounterOhio State Harding Hospital03-19-2025 Telephone encounter Note * Telephone Encounter - Charlette Starkey RN - 08/25/2024 9:52 AM EDT Patient notified. She wanted to move u/s up sooner. Scheduled for 09/02. Patient also preferred to keep / OB appointment as scheduled with RR. Charlette Starkey RN [facility]03-19-2025 Miscellaneous Notes* Telephone Encounter - Charlette [...] scheduled. Charlette Starkey RN documented in this encounterOhio State Harding Hospital03-19-2025 Telephone encounter Note * Telephone Encounter - Piper Julian MD - 08/25/2024 9:08 AM EDT Official readings have been normal as have growth. Keep next growth US, can be 3 weeks instead of 4but we don't need to do anything different at this time, conbt. q 4 week growth scans. RLR [facility] Work Phone: 1(350) 147-727903-19-2025 Telephone encounter Note* Telephone Encounter - Idania Murphy RN - 08/25/2024 9:04 AM EDT Patient called back this morning, can you address phone noted below? Idania Murphy RN [facility]03-18-2025 Telephone encounter Note* Telephone Encounter - Charlette Starkey RN - 08/24/2024 4:30 PM EDT 23w3d Patient had echo done today and pediatric cardiology provider noted the amniotic fluid volumeappeared subjectively low. Patient is questioning if she needs sooner appointment than her 09/07/24 f/u anatomy one that is scheduled. Charlette Starkey RN [facility]03-18-2025 NoteHNO ID: [id number] Author: PAMELA HASKINS MD Service: ? Author Type: Physician Type: Progress Notes Filed: 08/24/2024 14:20 Note Text: Dr. Pooja Julian NAME: Melissa Mckoy [facility] Number.: [id number] Date of : 1995 Date of Visit: [...] which included preparing to see the patient, [id number] patient care, completing clinical documentation, obtaining and/or reviewing separately obtained history, performing a medically appropriate examination, counseling and educating the patient/family/caregiver, ordering medications, tests, or procedures, communicating with other HCPs (not separately reported), independently interpreting results (not separately reported), and communicating results to the patient/family/caregiver. I also performed portions of the echocardiogram myself. Sincerely, Dr. Santiago [facility]03-18-2025 History of Present illness Narrative* Pamela Haskins MD - 08/24/2024 12:[address] Pooja Julian NAME: Melissa [facility]ckoy [facility] Number.: [id number] Date of : 1995 Date of Visit: [...] acoustic windows. We discussed these findings with . Melissa Byrne and the FOB's mother. We [...] which included preparing to see the patient, [id number] patient care, completing clinical documentation, obtaining and/or reviewing separately obtained history, performing a medically appropriate examination, counseling and educating the pat ient/family/caregiver, ordering medications, tests, or procedures, communicating with other HCPs (not separately reported), independently interpreting results (not separately reported), and communicating results to the patient/family/caregiver. I also performed portions of the echocardiogram myself. Sincerely, Dr. Pamela Haskins documented in this encounterOhio State Harding Hospital03-14-2025 Telephone encounter Note * Telephone Encounter [...] Will review again next week- thanks! KB [facility]03-14-2025 Miscellaneous Notes* Telephone Encounter - Kelsy [...] next week- thanks! KB documented in this encounterOhio State Harding Hospital03-12-2025 Telephone encounter Note * Telephone Encounter - Amelia Rose RN - 08/18/2024 10:50 AM EDT Spoke to [facility] pharmacy in [place]. They will transfer the prescription over. [facility]03-12-2025 Miscellaneous Notes* Telephone Encounter - Amelia Rose RN - 08/18/2024 10:50 AM EDT Spoke to [facility] pharmacy in [place]. They will transfer the prescription over. * Telephone Encounter - Krys Arellano - 08/18/2024 9:20 AM EDT Hoda is calling Kelsy Guillermo DO today to request that insulin lispro (HUMALOG KWIKPEN INSULIN) 100 unit/mL be transferred to another [facility], which is in [place]. PH [phone] Patient has been identified by name and birthdate. Duration of symptoms: N/A Person calling: self Call patient at: at home [phone] (home) [phone] (cell) Was an appointment scheduled: No Closing statement: Results or non-symptom based questions: Thank you for calling [facility], your call will be returned within the next business day. Krys East documented in this encounterOhio State Harding Hospital03-12-2025 Telephone encounter Note * Telephone Encounter - Krys Arellano - 08/18/2024 9:20 AM EDT Hoda is calling Kelsy Guillermo DO today to request that insulin lispro (HUMALOG KWIKPEN INSULIN) 100 unit/mL be transferred to another [facility], which is in [place]. PH [phone] Patient has been identified by name and birthdate. Duration of symptoms: N/A Person calling: self Call patient at: at home [phone] (home) [phone] (cell) Was an appointment scheduled: No Closing statement: Results or non-symptom based questions: Thank you for calling [facility], your call will be returned within the next business day. Krys East [facility]03-08-2025 Telephone encounter Note* Telephone Encounter - [...] review again next week- thanks! Dr Guillermo [facility]03-08-2025 Miscellaneous Notes* Telephone Encounter - Kelsy [...] week- thanks! Dr Guillermo documented in this encounterOhio State Harding Hospital03-04-2025 Telephone encounter Note * Telephone Encounter - Faina Levin MA - 08/10/2024 4:55 PM EST Spoke to patient. Please see mychart encounter. [facility]03-04-2025 Miscellaneous Notes* Telephone Encounter - Faina Levin MA - 08/10/2024 4:55 PM EST Spoke to patient. Please see mychart encounter. * Telephone Encounter - Amada Hills RN - 08/10/2024 3:10 PM EST Faina, the pt thinks she missed your call and wants to speak with you personally, will yo please call her back at the number listed in contacts, she will keep the phone by her side. documented in this encounterOhio State Harding Hospital03-04-2025 Telephone encounter Note * Telephone Encounter - Faina Levin MA - 08/10/2024 4:54 PM EST Spoke to patient and updated her. [facility]03-04-2025 Miscellaneous Notes* Telephone Encounter - Faina [...] 4:02 PM EST Spoke to tech at [facility] and she stated that she spoke to [...] [facility]MY [facility] DIABETES 09/20/2024 1:40 PM ENDO [facility] LYDIA QUECHEE TC EST KIMMY PATIENT 11/04/2024 11:00 AM [...] - 08/10/2024 1:49 PM EST Spoke to [facility] Kyle and they stated that onetouch prescription was transferred to another formerly [facility] at other [facility] and she stated that they did not [...] EST KIMMY GESTATIONAL DIABETES 09/20/2024 1:40 PM [facility] EST KIMMY PATIENT 11/04/2024 11:00 AM [facility] ED [facility] ALT . Requested Prescriptions Pending Prescriptions Disp Refills insulin lispro (HUMALOG KWIKPEN INSULIN) 100 unit/mL 45 mL 11 Si -23 - 26 units prior to each meal respectively + scale (upto 100 units/day) insulin NPH (HUMULIN N NPH INSULIN KWIKPEN) 100 unit/mL (3 mL) injection pen 45 mL 11 Si units at bedtime blood sugar diagnostic (FashionStakeTOUCH VERIO TEST STRIPS) test strip 150 Each 11 Sig: Use as instructed - TEST BLOOD SUGARS 4 TIMES DAILY Blood-Glucose Meter ([employer]UCH VERIO FLEX METER) 1 Each 0 Sig: Use to check blood glucose 4 times daily. lancets (Pharmaxis DELICA PLUS LANCET) 30 gauge 100 Each [...] EST [facility]ST[facility] DIABETES 09/20/2024 1:40 PM [facility] EST KIMMY PATIENT 11/04/2024 11:00 AM [facility] ED [facility] ALT . Requested Prescriptions Pending Prescriptions Disp [...] needs scheduled appointment No documented in this encounterOhio State Harding Hospital03-04-2025 Note* Addendum Note - Kelsy Guillermo DO - 08/10/2024 4:35 PM ESTAddended by: KELSY GUILLERMO on: 08/10/2024 04:35 PM Modules accepted: Orders [facility]03-04-2025 Note* Addendum Note - Faina Levin MA - 08/10/2024 4:19 PM ESTAddended by: FAINA LEVIN on: 08/10/2024 04:19 PM Modules accepted: Orders [facility]03-04-2025 Telephone encounter Note* Telephone Encounter - Faina Levin MA - 08/10/2024 4:02 PM EST Spoke to tech at [facility] and she stated that she spoke to [...] KIMMY GESTATIONAL DIABETES 09/20/2024 1:40 PM ENDO [facility] L[facility]IA [facility] EST KIMMY PATIENT 11/04/2024 11:00 AM ENDO [...] pool. PSS NOTE: Patient needs scheduled appointment [facility]03-04-2025 Telephone encounter Note* Telephone Encounter - Amada Hills RN - 08/10/2024 3:10 PM EST Faina, the pt thinks she missed your call and wants to speak with you personally, will yo please call her back at the number listed in contacts, she will keep the phone by her side. [facility]03-04-2025 Telephone encounter Note* Telephone Encounter - Faina Levin MA - 08/10/2024 1:49 PM EST Spoke to [facility] [place] and they stated that onetouch prescription was transferred to another formerly [facility] at other [facility] and she stated that they did not [...] until 2pm and will call back again. [facility]03-04-2025 Telephone encounter Note* Telephone Encounter - Demetra Morris - 08/10/2024 10:46 AM EST Patient called and states that a prior authorization needs to be done for her blood glucose testingsupplies. Please advise if PA can be started. [facility]03-04-2025 Progress note* Quick Notes - William Gramajo [...] up in 4 weeks. William Gramajo MD [facility]03-04-2025 Miscellaneous Notes* Quick Notes - William Gramajo [...] weeks. 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 Womack, a psychiatrist at [facility] in [place]. Taking Buspar and Prozac. Also sees a therapist Dr. Olmstead at [facility]. She states that she is able and willing to go to the ER or call crisis if she experiences any suicidal thoughts Medical Decision Making: Problems: Moderate: 2+ stable chronic illnesses Risk: Moderate: Moderate risk from testing/treatment Medical Decision Making Level: 4 - Moderate Pooja Latham MD documented in this encounterOhio State Harding Hospital03-04-2025 Instructions* Patient Instructions* Sundeep Salvador MA - 08/10/2024 8:22 AM EST SEQUENTIAL SCREENINGS The [facility] offers sequential screenings for women who [...] testing. It will require an appointment withour server support technician. This is not an ultrasound performed [...] the above symptoms, contact our office at [phone] and ask to speak with anurse. After hours, you can call doctors registry at [phone] OR call [facility] at [phone] ask to have the doctor director executive communications paged. If you consider this an emergency, dial 7--6 or go to your nearest emergency department. NEED HELP? Are you dealing with a violent or abusive relationship? Are you a victim of rape or sexual assult? Call [facility] ([place]) 24 hour Crisis Hotline: 251.974.5397 or 131-297-7349. MANUAL Your Guide to a Healthy manual is now on-line. Visit [email or web address] to download your free copy documented in this encounterOhio State Harding Hospital03-02-2025 Telephone encounter Note * Telephone Encounter [...] review again next week- thanks! Dr Guillermo [facility]03-02-2025 Miscellaneous Notes* Telephone Encounter - Kelsy [...] week- thanks! Dr Guillermo documented in this encounterOhio State Harding Hospital02-25-2025 Telephone encounter Note * Telephone Encounter [...] KIMMY GESTATIONAL DIABETES 09/20/2024 1:40 PM ENDO [facility] EST KIMMY PATIENT 11/04/2024 11:00 AM ENDO DIAB ED [facility] ALTC . Requested Prescriptions Pending Prescriptions Disp Refills [...] check blood glucose 4 times daily. lancets (FashionStakeTOUCH DELICA PLUS LANCET) 30 gauge 100 Each 11 Sig: Use with blood glucose test four times a day. Insulin Dep? Yes If patient is due for an appointment please route to provider for refill consideration and also to the endo scheduling pool. PSS NOTE: Patient needs scheduled appointment No [facility]02-25-2025 Telephone encounter Note* Telephone Encounter - Faina Levin MA - 08/03/2024 2:27 PM EST Requester: Patient Patients last Endocrinology visit occurred 07/26/24. Follow-up evaluation has been established Upcoming Endocrinology Appointments - Next 365 Days Visit Type Date Time Department EST [facility]IMMY [facility]ST[facility] DIABETES 09/20/2024 1:40 PM [facility] EST KIMMY PATIENT 11/04/2024 11:00 AM ENDO DIAB ED [facility] ALTC . Requested Prescriptions Pending Prescriptions Disp Refills [...] PSS NOTE: Patient needs scheduled appointment No [facility]02-23-2025 Telephone encounter Note* Telephone Encounter - [...] review again next week- thanks! Dr Guillermo [facility]02-23-2025 Miscellaneous Notes* Telephone Encounter - Kelsy [...] week- thanks! Dr Guillermo documented in this encounterOhio State Harding Hospital02-17-2025 Instructions* Patient Instructions* Kelsy Guillermo DO [...] 7 weeks for f/u. documented in this encounterOhio State Harding Hospital02-17-2025 History of Present illness Narrative* Kelsy [...] DM during thatpregnancy- had macrosomia, delivered in [place]. She was initially diagnosed with type 2 [...] 10-IRON FUM-FOLIC ORAL Take by mouth. Insulin Woodland, Disposable, (BD ULTRAFINE III MINI PEN) 31 [...] forward me your blood glucose data weekly ([email or web address])- 3) increase NPH to 80 [...] which included preparing to see the patient, [id number] patient care, completing clinical documentation, obtaining and/or reviewing separately obtained history, performing a medically appropriate examination, counseling and educating the pat ient/family/caregiver, and ordering medications, tests, or procedures. Kelsy Guillermo DO documented in this encounterOhio State Harding Hospital02-17-2025 NoteUniversity Hospitals Conneaut Medical Center02-14-2025 NoteUniversity Hospitals Conneaut [facility] Center02-14-2025 History of Present illness Narrative* William Gramajo MD - 07/23/2024 11:27 AM EST Melissa Byrne is a 29 year old female who presents for problem visit. HPI: Patient presents with concerns over possible herpes outbreak as had a little vulvar irritation. She denies complaints. 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 Insulin Woodland, Disposable, (BD ULTRAFINE III MINI PEN) 31 [...] discussed with the Patient or Patient's Authorized Manager Fixed Income. As applicable, any other physician, advance practice provider, medical student, or other health professional student that will be observing or involved in the sensitive examination for educational or training purposes was discussed with the Patient or Authorized Manager Fixed Income. The Patient or Authorized Manager Fixed Income has agreed to proceed with the sensitive examination. (Sensitive examination includes inspection and/or palpation of the breasts, pelvis, prostate and anorectal regions). EXAM: LMP 03/13/2024 GENERAL: pleasant, female in no apparent distress PELVIC: external genitalia normal, normal Bartholin's glands, urethra, Hawthorne's glands, no vulvar lesions ASSESSMENT AND PLAN: Assessment & Plan Vulvar irritation Patient reassured or normal vulvar exam and no evidence of HSV outbreak. Follow up for care. Medical Decision Making: Problems: Low: Acute, uncomplicated illness or injury Risk: Low: Low risk from testing/treatment Medical Decision Making Level: 3 - Low William Gramajo MD documented in this encounterOhio [facility] Telephone encounter Note * Telephone Encounter [...] Will review again next week- thanks! KB [facility]02-11-[facility] Miscellaneous Notes* Telephone Encounter - Kelsy [...] next week- thanks! KB documented in this encounterOhio State [facility]ing [facility]02-10-2025 Telephone encounter Note * Telephone Encounter [...] Dept Phone 07/26/2024 2:00 PM KELSY GUILLERMO [facility] Lydia Erickson [phone] 08/10/2024 8:00 AM WHI TECH 1 BEEF SPLITTER MFM WSTR [facility] [place] [phone] 08/10/2024 8:00 AM BEEF SPLITTER MFM WSTR MOB [place] [phone] 08/10/2024 9:00 AM POOJA LATHAM [place] [phone] 08/10/2024 9:10 AM WILLIAM GRAMAJO [place] [phone] 08/24/2024 1:00 PM PAMELA HASKINS [facility] [phone] 08/24/2024 1:00 PM ECHO LAB [facility] [phone] RX INSTRUCTIONS: Respond to pharmacy only and close encounter Carrie Mata MA [facility] Work Phone: [phone]) 853-901202-10-2025 Miscellaneous Notes* Telephone Encounter - Carrie Mata [...] Dept Phone 07/26/2024 2:00 PM KELSY GUILLERMO [facility] Lydia Erickson [phone] 08/10/2024 8:00 AM WHI TECH 1 BEEF SPLITTER MFM [facility]STR [facility] [place] [phone] 08/10/2024 8:00 AM BEEF SPLITTER MFM WSTR [facility] [place] [phone] 08/10/2024 9:00 AM POOJA LATHAM [place] [phone] 08/10/2024 9:10 AM WILLIAM [place] [phone] 08/24/2024 1:00 PM SASHA PAMELA [facility] [phone] 08/24/2024 1:00 PM ECHO LAB [facility] [phone] RX INSTRUCTIONS: Respond to pharmacy only and close encounter Carrie Mata MA documented in this encounterOhio State [facility]ing Hospital02-05-2025 Telephone encounter Note * Telephone Encounter [...] Will review again next week- thanks! KB [facility] Miscellaneous Notes* Telephone Encounter - Kelsy [...] next week- thanks! KB documented in this encounterOhio State [facility]ing Hospital02-04-2025 Progress note* Quick Notes - William [...] on aspirin at bedtime William Gramajo MD [facility]02-04-2025 Miscellaneous Notes* Quick Notes - William Gramajo MD - 07/13/2024 11:33 AM EST KJ - VB No. LOF No. CTXS No. Movement: absent. Other c/o: No. Medication list reviewed. 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 It will require an appointment withour server support technician. This is not an ultrasound performed [...] the above symptoms, contact our office at [phone] and ask to speak with anurse. After hours, you can call doctors registry at [phone] OR call [facility] at [phone] ask to have the doctor director executive communications paged. If you consider this an emergency, dial 3-7-8 or go to your nearest emergency department. NEED HELP? Are you dealing with a violent or abusive relationship? Are you a victim of rape or sexual assult? Call [facility] ([place]) 24 hour Crisis Hotline: 686.275.2363 or 424-694-6079. MANUAL Your Guide to a Healthy manual is now on-line. Visit [email or web address] to download your free copy documented in this encounterOhio State Harding Hospital01-26-2025 Telephone encounter Note * Telephone Encounter [...] Will review again next week- thanks! NILES [facility]01-26-2025 Miscellaneous Notes* Telephone Encounter - Kelsy [...] next week- thanks! NILES documented in this encounterOhio State Harding Hospital01-24-2025 Telephone encounter Note * Telephone Encounter - William Gramajo MD - 07/02/2024 10:08 AM EST Noted William Gramajo MD [facility] Work Phone: 1(694) 996-476801-24-2025 Miscellaneous Notes* Telephone Encounter - William Gramajo [...] furtheradvice. Charlette Starkey RN documented in this encounterOhio State Harding Hospital01-24-2025 Telephone encounter Note * Telephone Encounter [...] Only call with furtheradvice. Charlette Starkey RN [facility]01-20-2025 Telephone encounter Note* Telephone Encounter - Keshav Loving MD - 06/28/2024 8:49 AM EST Agree with recommendations thanks [facility] Work Phone: [phone]) 935-288701-20-2025 Miscellaneous Notes* Telephone Encounter - Keshav Loving [...] advice. Charlette Starkey RN documented in this encounterOhio State Harding Hospital01-20-2025 Telephone encounter Note * Telephone Encounter [...] call with further advice. Charlette Starkey RN [facility]01-17-2025 Miscellaneous Notes* Telephone Encounter - Kelsy [...] week- thanks! Dr Guillermo documented in this encounterOhio State Harding Hospital01-17-2025 Telephone encounter Note * Telephone Encounter [...] review again next week- thanks! Dr Guillermo [facility]01-14-20[facility] Telephone encounter Note* Telephone Encounter - Ezra Crabtree RN - 06/22/2024 8:18 AM EST Called Melissa Byrne and identified by name and date of [...] with Primary OB Provider. Ezra Crabtree RN [facility]01-14-2025 Miscellaneous Notes* Telephone Encounter - Ezra Crabtree RN - 06/22/2024 8:18 AM EST Called Melissa Byrne and identified by name and date of [...] Provider. Ezra Crabtree RN documented in this encounterOhio State Harding Hospital01-11-2025 Telephone encounter Note * Telephone Encounter [...] review again next week- thanks! Dr Guillermo [facility]01-11-2025 Miscellaneous Notes* Telephone Encounter - Kelsy [...] week- thanks! Dr Guillermo documented in this encounterOhio State Harding Hospital01-08-2025 History of Present illness Narrative* Carrie Larsen, RD - 06/16/2024 10:00 AM EST [facility] Medical Nutrition Therapy Visit Type: Virtual: I have discussed the nature of this visit with the patient which will occur via [facility] (Phone, Virtual Visit) and she agrees to proceed with this interaction. I have communicated my name and active licensure. The patient's identity and physical location wereverified at the time of this visit. Either the patient or their legal technical sales representative has been informed of the risks [...] during that - had macrosomia, delivered in [place]. -She was initially diagnosed with type 2 [...] 10-IRON FUM-FOLIC ORAL Take by mouth. Insulin Woodland, Disposable, (BD ULTRAFINE III MINI PEN) 31 [...] 191 lbs Pre- BMI: 34.9 TW lbs [facility] Weight Gain Recommendations for : [...] record. Signed by: Carrie Larsen M.S., MEHNAZ, RASHMI documented in this encounterOhio State Harding Hospital01-08-2025 NoteUniversity Hospitals [facility]01-07-2025 NoteUniversity Hospitals [facility]01-07-2025 History of Present illness Narrative* Pooja Latham MD - 06/15/2024 1:37 PM EST Images from the original note were not included. Alarm Technician [facility] OUTPATIENT VISIT DATE June 15, 2024 OUTPATIENT VISIT TYPE CONSULT REFERRING PROVIDER: Zayda Parekr APRN.COOK HELPER MEAT Recommendations from today's consultation will be conveyed through the electronic medical record. History of Present Illness: 29 year old at 13w3d with Estimated Date of Delivery: 12/18/24 presenting for consultation with [facility] in the setting of sub-optimally controlled [...] around age 12-14. She is followed by Oscillograph Technician Dr. Guillermo. She was last seen in [...] day. insulin NPH (HUMULIN N NPH INSULIN JANIKPEN) 100 unit/mL (3 mL) injection pen 58 [...] 10-IRON FUM-FOLIC ORAL Take by mouth. Insulin Woodland, Disposable, (BD ULTRAFINE III MINI PEN) 31 gauge x 3/16 4 times/day Blood-Glucose Sensor (Connectivity ZOLTAN 3 PLUS SENSOR) candice Use as [...] shows: - Single, live, intrauterine . - Milano rump length measurement is consistent with the [...] Lymph 1.00 - 4.00 k/uL 2.83 Abs Calvert <0.87 k/uL 0.37 Abs Eosin <0.46 k/uL [...] cardiovascular systems. 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 Pooja Latham MD June 15, 2024 3:33 PM documented in this encounterOhio State Harding Hospital01-06-2025 Telephone encounter Note * Telephone Encounter - Kelsy Guillermo DO - 06/14/2024 4:56 PM EST Rx sent KB [facility]01-06-[facility] Miscellaneous Notes* Telephone Encounter - Kelsy Guillermo DO - 06/14/2024 4:56 PM EST Rx sent KB documented in this encounterOhio State Harding Hospital01-03-2025 Telephone encounter Note * Telephone Encounter [...] Will review again next week- thanks! KB [facility]01-03-2025 Miscellaneous Notes* Telephone Encounter - Kelsy [...] next week- thanks! KB documented in this encounterOhio State Harding Hospital12-30-2024 Instructions* Patient Instructions* Kelsy Guillermo DO - 06/07/2024 2:33 PM EST 1) check your sugars fasting (60-90 mg/dL) and 2 hours post meal (less than 120 mg/dL) 2) forward me your blood glucose data weekly ([email or web address])- we will get you CGM [...] 8 weeks for f/u. documented in this encounterOhio State Harding Hospital12-30-2024 History of Present illness Narrative* Kelsy [...] DM during thatpregnancy- had macrosomia, delivered in [place]. She was initially diagnosed with type 2 [...] proteinuria, third trimester 12/20/2016 H/O macrosomia in in prior , currently 05/07/2024 Herpes simplex type 2 (HSV-2) infection affecting , antepartum, unspecified trimester 04/19/2024 Hyperlipidemia LGA (large for gestational age) 12/23/2016 12/23/16 - >95% Polyhydramnios 01/01/2017 Pre-existing type 2 diabetes mellitus in in third trimester 12/12/2016 12/23/16 - admitted to [facility] for glucoregulation, likely will need delivery at 37 weeks - KJ 12/12/2016 She is a Type 2 diabetic and started Insulin during the .Last HGB A1c 6.9 on 11/14/2016.She sees an technical customer support specialist, Dr Asif. Her records have been faxed here during the visit and are sent to [address] Gramajo review. TKRN January 14, 2017 EFW is approx 95%. Monitor closely, cons with care elsewhere, antepartum 12/12/2016 12/12/2016Patient is transferring care from [facility]. She states she has moved from [place] to [place] and wishes to be seen here.There is some notations by her previous doctor ofnon-compliance issues with keeping appointments and diabetic diet/Insulin dosages. She states she was seen at the [facility] 11/18 for decreased movement and then again [...] 10-IRON FUM-FOLIC ORAL Take by mouth. Insulin Woodland, Disposable, (BD ULTRAFINE III MINI PEN) 31 [...] forward me your blood glucose data weekly ([email or web address])- we will get you CGM [...] which included preparing to see the patient, [id number] patient care, completing clinical documentation, obtaining and/or reviewing separately obtained history, performing a medically appropriate examination, counseling and educating the pat ient/family/caregiver, and ordering medications, tests, or procedures. Kelsy Guillermo DO documented in this encounterOhio State Harding Hospital12-30-2024 NoteUniversity Hospitals Conneaut Medical Center12-30-2024 NoteHNO ID: [id number] Author: FAINA LEVIN MA Service: ? Author Type: Laundry Agent Type: Procedures Filed: 06/07/2024 15:02 Note Text:[facility]12-30-2024 Procedure note* Faina Levin MA - 06/07/2024 2:14 PM ESTProcedure(s): EXTERNAL SUPERVISOR SEAMING, CGM SYS Images from the original note were not included. [facility]12-30-[facility] Procedure note* Faina Levin MA - 06/07/2024 2:14 PM ESTProcedure(s): EXTERNAL SUPERVISOR SEAMING, CGM SYS Images from the original note were not included. documented in this encounterOhio State Harding Hospital12-28-2024 Telephone encounter Note * Telephone Encounter [...] are going next week- thanks! Dr Guillermo [facility]12-28-2024 Miscellaneous Notes* Telephone Encounter - Kelsy [...] week- thanks! Dr Guillermo documented in this encounterOhio State Harding Hospital12-24-2024 Telephone encounter Note * Telephone Encounter [...] are going next week- thanks! Dr Guillermo [facility]12-24-2024 Miscellaneous Notes* Telephone Encounter - Kelsy [...] week- thanks! Dr Guillermo documented in this encounterOhio State Harding Hospital12-18-2024 Telephone encounter Note * Telephone Encounter - Amelia Rose RN - 05/26/2024 2:28 PM EST A PA for Humalog submitted and was approved. Spoke to patient and advised. She can use the voucher as well. [facility]12-18-[facility]24 Miscellaneous Notes* Telephone Encounter - Amelia [...] Please review and advise. documented in this encounterOhio State Harding Hospital12-18-2024 Telephone encounter Note * Telephone Encounter [...] get her Humalog. Please review and advise. [facility]12-18-[facility] Progress note* Quick Notes - Krys [...] genetic counseling but results no included. Per [facility]. Normal genetic testing Daughter and patient have [...] Unknown. No results found Krys Kulkarni MD [facility]12-18-2024 Miscellaneous Notes* Quick Notes - Krsy Kulkarni MD - 05/26/2024 11:42 AM EST [...] genetic counseling but results no included. Per [facility]. Normal genetic testing Daughter and patient have [...] found Krys Kulkarni MD documented in this encounterOhio State Harding Hospital12-18-2024 Instructions* Patient Instructions* Gino Wood MA - 05/26/2024 9:50 AM EST SEQUENTIAL SCREENINGS [facility] offers sequential screenings for women who [...] testing. It will require an appointment withour server support technician. This is not an ultrasound performed [...] the above symptoms, contact our office at [phone] and ask to speak with anurse. After hours, you can call doctors registry at [phone] OR call [facility] at [phone] ask to have the doctor director executive communications paged. If you consider this an emergency, dial 9-1-5 or go to your nearest emergency department. NEED HELP? Are you dealing with a violent or abusive relationship? Are you a victim of rape or sexual assult? Call [facility] ([place]) 24 hour Crisis Hotline: 611.441.8953 or 042-291-7341. MANUAL Your Guide to a Healthy manual is now on-line. Visit [email or web address] to download your free copy documented in this encounterOhio State Harding Hospital12-17-2024 Telephone encounter Note * Telephone Encounter [...] for tomorrow with JRobyn. Charlette Starkey RN [facility]12-17-2024 Miscellaneous Notes* Telephone Encounter - Charlette [...] advise. Charlette Starkey RN documented in this encounterOhio State Harding Hospital12-13-2024 Hospital Discharge instructions* Discharge Instructions* Reza Dyer DO - 05/21/2024 8:33 PM EST Call OB on Friday for follow-up appointment. * Attachments The following attachments cannot be sent through Care Everywhere. * The Second Month (Norwegian) [facility] Work Phone: 1(583) 103-539412-13-2024 Emergency department Note* Reza Dyer DO - [...] use: Never Physical Exam ED Triage Vitals [05/21/24 191] Temperature Heart Rate Respirations BP 36.5 C (97.7 F) 91 18 115/68 Pulse Ox Temp src Heart Rate Source Patient Position 100 % -- Monitor -- BP Location FiO2 (%) Left arm -- Physical Exam ED Course & MDM Diagnoses as of 05/21/242035 Abdominal pain during in first trimester ([facility]) No data recorded Medical Decision Making Labs Reviewed HUMAN CHORIONIC GONADOTROPIN, SERUM QUANTITATIVE - Abnormal HCG, Beta-Quantitative 67,800 (*) Narrative: Total HCG measurement is performed using the [place] Access Immunoassay which detects intact HCG and free beta HCG subunit. This test is not indicated for use as a tumor marker. HCG testing is performed using a different test methodology at [facility] than other legacy [facility]. Direct result comparison should only [...] Color, Urine Appearance, Urine Turbid (*) Specific [place], Urine 1.029 pH, Urine 6.0 Protein, Urine [...] Abnormality Status --------- ------ Urinalysis with Reflex C...[[id number]] Abnormal Final result Extra Urine Bolton Tube[[id number]] In process Please view results for these [...] Care: Appropriate for discharge and follow-up with MEMBER CERTIFICATION MANAGER. Procedure Procedures Reza Dyer DO 05/21/242036 documented in this [facility] Work Phone: [phone]) 365-418512-13-2024 Physician Emergency department Note* Reza Dyer, DO - 05/21/2024 6:55 PM EST HPI [...] performed using a different test methodology at [facility] than other [facility]. Direct result comparison should only [...] Color, Urine Appearance, Urine Turbid (*) Specific [place], Urine 1.029 pH, Urine 6.0 Protein, Urine [...] Abnormality Status --------- ------ Urinalysis with Reflex C...[[id number]] Abnormal Final result Extra Urine Bolton Tube[[id number]] In process Please view results for these [...] Care: Appropriate for discharge and follow-up with MEMBER CERTIFICATION MANAGER. Procedure Procedures Reza Dyer DO 05/21/242036 [facility] Work Phone: 1(577) 840-601112-12-2024 Telephone encounter Note* Telephone Encounter - Krys Murcia RN - 05/20/2024 10:00 AM EST Left message for patient to call office. Review below recommendations. RX for Diclegis was sent in today. Received message from pharmacy that this needs Prior Auth. Krys Murcia, RN [facility]12-12-2024 Telephone encounter Note* Telephone Encounter - Piper [...] get to there. . Piper Julian MD [facility]12-12-2024 Telephone encounter Note* Telephone Encounter - Charlette [...] office too. Please advise. Charlette Starkey RN [facility]12-09-2024 Telephone encounter Note* Telephone Encounter - Amelia Rose RN - 05/17/2024 11:48 AM EST Spoke to patient and advised about insulin taking. No further questions for now. [facility]12-09-2024 Miscellaneous Notes* Telephone Encounter - Amelia Rose RN - 05/17/2024 11:48 AM EST Spoke to patient and advised about insulin taking. No further questions for now. documented in this encounterOhio State Harding Hospital12-09-2024 Telephone encounter Note * Telephone Encounter - Kelsy Guillermo DO - 05/17/2024 11:09 AM EST Reviewed BG data- responded as follows: Hi Hoda - your sensor average is 193 mg/dL. I would recommend that you do the following: increase NPH to 32 units at bedtime increase Humalog to 15 units prior to each meal. Will review again on friday thanks! KB [facility]12-09-2024 Miscellaneous Notes* Telephone Encounter - Kelsy Guillermo DO - 05/17/2024 11:09 AM EST Reviewed BG data- responded as follows: Hi Hoda - your sensor average is 193 mg/dL. I would recommend that you do the following: increase NPH to 32 units at bedtime increase Humalog to 15 units prior to each meal. Will review again on friday thanks! KB documented in this encounterOhio State Harding Hospital12-03-2024 NoteUniversity Hospitals Conne[facility] Center12-03-2024 Procedure note* Ana Sawyer MSW - 05/11/2024 4:09 PM EST Sw met with patient to review social service needs and social service assistance options. Patient notes that she signed up for WIC. Patient also notes signing up for PIPP and [employer] voucher. Patient notes that she is attending parenting classes through [facility]. Sw and patient also discussed reaching out to 180 for help with housing options. Patient reports that where she lives in [place] does not allow for children. Sw called [...] security statements. Patient and Sw also discussed [employer] as well at [facility]. Sw wrote down [place]'s address and [facility] address and contact info for patient. Patient also noted that she sees counselor at [facility]. Patient has this direct number for any further assistance needs. Patient also noted that when she left this Leeanne office that she would go down to 180 and see what housing supportive service resources they may be able to offer. [facility]12-03-2024 Procedure note* Ana Sawyer MSW - 05/11/2024 4:09 PM EST Leeanne met with patient to review social service needs and social service assistance options. Patient notes that she signed up for WIC. Patient also notes signing up for PIPP and [employer] voucher. Patient notes that she is attending parenting classes through [facility]. Sw and patient also discussed reaching out to [address] for help with housing options. Patient reports that where she lives in [place] does not allow for children. Sw called [...] security statements. Patient and Sw also discussed [employer] as well at [facility]. Sw wrote down [place]'s address and [facility] address and contact info for patient. Patient also noted that she sees counselor at [facility]. Patient has this direct number for any further assistance needs. Patient also noted that when she left this office that she would go down to 180 and see what housing supportive service resources they may be able to offer. documented in this encounterOhio State Harding Hospital12-01-2024 Telephone encounter Note * Telephone Encounter [...] data again friday AM thanks Dr Guillermo [facility]12-01-2024 Miscellaneous Notes* Telephone Encounter - Kelsy [...] AM thanks Dr Guillermo documented in this encounterOhio State Harding Hospital11-29-2024 Note* Addendum Note - Zayda Parker APRN.CNP - 05/07/2024 10:36 AM ESTAddended by: ZAYDA PARKER on: 05/07/2024 10:36 AM Modules accepted: Orders [facility]11-29-2024 Miscellaneous Notes* Addendum Note - Zayda Parker APRN.CNP - 05/07/2024 10:36 AM ESTAddended by: ZAYDA PARKER on: 05/07/2024 10:36 AM Modules accepted: Orders * Addendum Note - Sundeep Salvador MA - 05/07/2024 10:25 AM ESTAddended by: SUNDEEP SALVADOR on: 05/07/2024 10:25 AM Modules accepted: Orders documented in this encounterOhio State Harding Hospital11-29-2024 Note* Addendum Note - Sundeep Salvador MA - 05/07/2024 10:25 AM ESTAddended by: SUNDEEP SALVADOR on: 05/07/2024 10:25 AM Modules accepted: Orders [facility]11-29-2024 Instructions* Patient Instructions* Zayda Parker APRN.CNP - 05/07/2024 9:01 AM EST Images from the original note were not included. Please select the following link to access the [facility] [facility] Your Guide to a Healthy . www.Ccf.org/healthypregnancyguide MORNING SICKNESS IN by Estela Villa M.D. for Hango As you may already know, morning sickness can often be more appropriately called evening sickness or kjimi-uagjit-lc-the-day sickness. While there are the arabella few, [...] healthy snacks with you all day to [facility] when you feel queasy can sometimes even prevent nausea from starting. vitamins and nausea: Pre-chang vitamins can sometimes worsen nausea in . [...] medication called Bendectin was available in the -1979's and was shown to be safe in [...] medication, Doxylamine, is currently marketed as an cgse-tfg-lewqxoj sleeping pill. Ask your practitioner if creating a vitamin B6/Doxylaminecombination with jtjz-ref-zdsgzxj medications would be safe for you. Prescription [...] as Phenergan, Compazine, Reglan Psychotherapy Services at [facility] Call Behavioral Health Access Line at [phone] to schedule Individual psychotherapy In-person or virtual Wait time for first evaluation may be 12 or more weeks. Wait list spots may be available. Due to the high volume of patients this option is recommended if you are looking for short term acute symptomcoping strategies. 6-898-9-KATA8SDYY - [facility] Mental Health Hotline If you are in suicidal crisis, please call or text 9-479-754-TALK ( ) or visit the National Suicide Prevention Lifeline website. mchb.[facility]una hospitala.gov If you are in crisis, call 601 or go to your nearest Emergency Department Here are some links for wonderful Providers here in the community and surrounding areas. Do not hesitate to contact their offices, many are offering virtual visits during this time. Psychotherapy Services outside of [facility] Support International Online Provider Directory https://AgileMD.Smart Ecosystems/ - can assist in finding providers in your area that might be more extensive then the list below. [facility] - [place], [place] [address] [place] [address] [place] [address] [place] [address] [facility] [address] [place] [address] [facility] [address] [place] [address] Karen Kaur MD [address] [place] [address] [facility] [address] [facility], [address] [place] [address] [facility] [address] [place] [address] [facility] [place] / [place] [phone]/ [phone] Nancy Saba [address] [facility] [phone] Aves of Counseling and Mediation [place] / [place] [phone] Behavioral health services of [facility] [address] [place] [address]/ daisetta and fairplay [phone] Mike Choudhary, ANASTASIA, CLC Bump and Beyond Family Therapy Workshops, telehealth and at home visits. [phone] [facility] 20 locations [facility], [place], [place], [place], [place], [place], [facility], [place], [place], [place], [place], [place], [place], [facility], [place], [place] ,[facility], [place], [place],[facility], [facility], [place], [facility], [facility], [place] www.[facility], atlantic city campusSala Internationaltri-state memorial hospitalOrderDynamics.Smart Ecosystems [phone] Psychotherapy resources outside of [facility] are listed below GameSalad Psychotherapy Web: https://www.Ketera/ Support International Online Provider Directory https://Nano3D Biosciences/ Insight Counseling https://Faculte/ Partners for Behavioral Health and Wellness Web: https://2CRisk/ Center for Effective Living Web: https://www.Trapmineliving.com/ LifeStance Web: https://webme.com/location/state/[place]/ Signature Health Web: https://www.[facility]healthn[facility].org/ The Centers Web: https://Stars Express.org/ Recovery Resources Mental health and substance abuse help Web: https://www.Infinity Augmented RealitysCiteHealth & RESOURCES Support International Direct peer support and connection to professional resources Non-Emergency Helpline Phone: / Text: [phone] Web: https://www..net/ Online Provider Directory: https://Nano3D Biosciences/ Online Support Meetings: https://www..net/get-help/jej-cixofs-epmqpjq-meetings/ ARON Baby and Respiratory Therapy Aide Services Web: https://Emtrics/ MotherToBaby Expert information on medication use during and Text: [phone] Web: https://Accord/ NATIONAL REGISTRY FOR PSYCHIATRIC MEDICATIONS Currently studying the safety of antidepressants, ADHD medications and atypical antipsychotics taken during TO PARTICIPATE CALL TOLL-FREE: Web: https://womensmentalhealth.org/research/pregnancyregistry/ Support Groups: [facility]- Follow on facebook Baby Bistro support group led by [facility] department Resilient Mamas - Support Group [facility].org The POEM support group [phone] Www.poemonline.org Follow on facebook - DEDRICK cisneros Online support meetings PSI https://www..net/get-help/syq-llaihm-kzhbjey-meetings/ [facility] mommy and me virtual support group 11:30-1pm Support for mothers and new babies and toddlers [place] childbirth education: Childbirth @ccf.org or call [phone] CRISIS: CRISIS HOTLINE [phone], 911 or go to the nearest ER. [facility] [phone] / [facility] [phone] https://www.[facility] centerrb.org Crisis text line text the word HOME to [phone] [facility] [address] tammie 201[address] [facility] [id number] www.NanterojayroRevver Brigitte Kwan clinical counseling [address] [address] www.ReadyForZero [phone] Holding [place] Group psychotherapy Maricruz Yulyrea SBA BUSINESS DEVELOPMENT OFFICER PLUMBING MANAGER-S [address] [facility] www.Intentiva [phone]/ [place] [phone] They all offer virtual. All work with trauma Support groups Online support meetings PSI https://www..net/get-help/ofj-gfjkmj-dldhxjp-meetings/ Here are the support groups they offer: Support of parents of 1 to 4 years old children POEM ( Outreach and Encouragement for Moms) offers free support for mothers experiencing depression, anxiety, and other mood and anxiety disorders. Masks are recommended but not required. No pre-registration required. Babies in arms welcome. meetings now take place on the and Friday of each month Location: [facility] [address] [place] [address] Room 122 (library room) 7-8:00 p.m. When you enter the [facility] parking lot off of [address] the entrance door closest to our meeting room is on the front of the building toward the right. For those who are more comfortable with a virtual platform, POEM offers online support group options several days of the week. To register for an online group or to find out more about POEM, website at: https://mhaohio.org/get-help/wgfgtuly-wdjupa-sgvlmh/poem-services/ offer a confidential helpline: private Facebook group is called DEDRICK Cisneros Here are the groups they offer: Traumatic childbirth resources: Http://pattch.org/ https://www.ArmorTextjesusBarspace.Smart Ecosystems/ Name Location (s) Phone # (s) Services Website Holding Space Psychotherapy [address] [facility], [place], [place] - [phone]; [address] [facility] 201 [facility] [phone] In-Person GROUPS INDIVIDUAL THERAPY MATERNAL-INFANT MENTAL HEALTH MEDICATION MANAGEMENT PLAY AND ART THERAPY TELETHERAPY https://www.Ketera/services/ [facility]? [address] [place], [place] [address] ? [address] [place], [place] [address] ? WINTERS [address] [place] [phone]? Grief Support Groups Individual Grief Counseling Spiritual Care Memorial Events https://goshen.[facility].org/grief-services [facility] [address] [place], [place] [address]; ; Email: [email or web address] Women's Mental Health; Couples Counseling; Trauma (EMDR); Stress Management; Mood and Anxiety Related Disorders- and much more https://www.AMTcoAtavist/ LifeStance Numerous as they have contract providers: access website to find specific providers nearyou Counseling including CBT and EMDR as well as many more modalities; Medication Management; Telehealth and In-Person https://Gekko Technology/ Partners for Behavioral Health and Wellness [address] [place], [place] [address]; [phone] Personal, Family and Group Therapy; Psychological Testing and Diagnosis; Medication Management; Life and Career Coaching; Psychoanalysis; Literacy Testing; Yoga and Meditation https://MergeOptics.Smart Ecosystems/ Fit Mind [place] [address] [facility] [address], [place] [address] [address] ; [address] [facility], [address] [place] [address]; Office # for both sites: Individual and Couples Counseling https://www.Continuum Healthcare.Smart Ecosystems/paymentinsurance.html OCD & Anxiety [facility] [address] [place] [address], [address], [place] [address]; Specialize in Cognitive-Behavioral Therapy (CBT) for the treatment of anxiety disorders across the lifespan. TELEHEALTH ONLY. https://ocdandanxietycentBollingoBlogAI Merchant.Smart Ecosystems/faqs [facility] [address] [place], [address] [place] [address] [place], [address] [place] [address] [place], [address] [place] [address] [place], [address], [address] [place] [address] [facility] [place], [address] [place] [address] [place], [address] Transportation Services To minimize patient barriers, [facility] provides transportation services to patients who [...] assistance Substance abuse treatment Medication assisted treatment https://www.[facility].org/mental-health/ [facility] OFFICE AT [facility] [address] [place] [address] [facility] OFFICE [address] [place] [address] [facility] OFFICE [address] [place], [place] [id number] [facility] OFFICE (at [facility]) [address] [place] [address] [facility] SYRINGE EXCHANGE PROGRAM & HIV SCREENING [address] [place] [address] [place] SYRINGE EXCHANGE PROGRAM [address] [place] [address] Behavioral Health Urgent Care: [facility] Counseling Indvidual and Group Medication Management Case Management benefits applications housing assistance Substance abuse treatment Medication assisted treatment Employment Services/ Job Training https://Stars Express.org/ Recovery Resources [address] [place], [place] [address]: P: [phone] [address] [facility], [address], [place], [place] [address] P: [phone] Our services include: Addiction Mental Health Treatment Assessment Psychiatry Medical Care Employment Housing Drug and Alcohol Prevention HIV/AIDS Prevention https://www.Infinity Augmented Realitys.org/ [facility] [place] [address] [place] [address] [place] [address] [place] [address] [address] [place], [place] [address] [place] [address] [place] [address] [place] [address] [facility] [address] [place] [address] [place] [address] [place] [address] TMS Therapy/ Counseling Psychocological Testing for ADHD Medication Management In-Person/ Telemedicine https://www.NX Pharmagen/patients-depression Memory & Psychological services [address] [place] [address], [place] [address] Neuropsychological Testing For ADHD https://www.memoryandpsych.com/ The [facility] Office [address] [place] [id number] [address] Providing ektm-an-yokl and telehealth services. Adult Case Management Community Education and Prevention Employment Outpatient Treatment - Counseling & Psychotherapy Psychiatric Services http://www.ccwhc.org/ [facility] [address] [place] [address] [facility] [address] [place] [address] Virtual Appointments! Now offering safe and convenient virtual client appointments to anyone in [place]! Individual Therapy Couples/Relationship Therapy Trauma/EMDR Therapy Art Therapy Play Therapy Towerman Support: Parenting Skills, Parent Child Interaction Therapy, Parent Interaction Therapy Meditation Dietitian/Paint Stripper Services Group Therapy Yoga https://www.ebbandflowcounseling.Smart Ecosystems/ Nohemy Averyshalom [phone] Private Practice: Telehealth Only Specializes in EMDR [...] or smoking cessation program, such as the F Smoking Cessation Program. For more information, please [...] the fetus (as well as to the infant who is ). Therefore, these and any [...] smoke. (This information is provided by the [facility] and is not intended to replace the medical advice of your doctor or health care provider. Please consult your health care provider for advice about a specific medical condition. For additional written health information, please call the Cancer Answer Line at [facility] Cancer [place] Friday - Friday 8-4:30 for assistance: [phone]. Or visitwww.[facility].org/health/) From [facility] Tobacco Cessation website: Our comprehensive smoking cessation [...] help you with your financial plan. Contact [phone] for more information. [place] Tobacco Program Visit https://[place].quitlogix.org/en-US/ or call 6-698-KPKM-NOW documented in this encounterOhio [facility] Hospital11-26-2024 History of Present illness Narrative* Jamari [...] with other nicotine-induced disorder documented in this encounterSt. [facility] Work Phone: [phone]) 394-239511-25-2024 Nurse Note* Amelia Rose RN - 05/03/2024 [...] Time spent on patient education: 35 minutes. [facility]11-25-2024 Nurse Note* Amelia Rose RN - [...] patient education: 35 minutes. documented in this encounterOhio State [facility]ing Hospital11-25-2024 Instructions* Patient Instructions* Kelsy Guillermo DO [...] units prior to each meal. 4) see warehouse laborer (Carrie Larsen) virtual visit 5) see me in 4 weeks (virtual visit) documented in this encounterOhio State Harding Hospital11-25-2024 NoteUniversity Hospitals Conneaut Medical Center11-25-2024 History of Present illness Narrative* Kelsy Guillermo [...] during that - had macrosomia, delivered in [place]. She was initially diagnosed with type 2 [...] third trimester 12/12/2016 12/23/16 - admitted to [facility] for glucoregulation, likely will need delivery at 37 weeks - KJ 12/12/2016 She is a Type 2 diabetic and started Insulin during the .Last HGB A1c 6.9 on 11/14/2016.She sees an technical customer support specialist, Dr Asif. Her records have been faxed here during the visit and are sent to [address] Gramajo review. TKRN January 14, 2017 EFW is approx 95%. Monitor closely, cons with care elsewhere, antepartum 12/12/2016 12/12/2016Patient is transferring care from [facility]. She states she has moved from [place] to [place] and wishes to be seen here.There is some notations by her previous doctor ofnon-compliance issues with keeping appointments and diabetic diet/Insulin dosages. She states she was seen at the [facility] 11/18 for decreased movement and then again [...] forward me your blood glucose data weekly ([email or web address])- we will get you CGM (sensor)- you should write your numbers down fasting, and 2 hour post meal- and send me these data each friday. 3) stop Lantus- start NPH as follows: NPH 15 units at bedtime Humalog 6 units prior to each meal. 4) see warehouse laborer (Carrie Larsen) virtual visit 5) see me [...] which included preparing to see the patient, kvek-kk-uoug patient care, completing clinical documentation, obtaining and/or reviewing separately obtained history, performing a medically appropriate examination, counseling and educating the pat ient/family/caregiver, and ordering medications, tests, or procedures. Kelsy Guillermo DO documented in this encounterOhio State Harding Hospital11-25-2024 Telephone encounter Note * Telephone Encounter [...] currently sees Dr. Womack, a psychiatrist at [facility]. States that she recently had an appointment with him and has an upcoming appointment inJanuary. Patient states he is aware that she is and has discussed psychiatric medications during . Also sees a therapist Dr. Ol[facility]stead [facility]. Her next ap pointment there is May 10. She states she sees him every 2 weeks. Patient states she does have a history of depression. She admits to 2 psychiatric hospitalizations-one in 2018 and 2020. She states that she last had suicidal thoughts in February. She states that she is able and willing to go to the ER or call crisis if she experiences any suicidal thoughts. FYI. Call back only if further advice [facility]11-25-2024 Miscellaneous Notes* Telephone Encounter - Brenda [...] currently sees Dr. Womack, a psychiatrist at [facility]. States that she recently had an appointment with him and has an upcoming appointment inJanuary. Patient states he is aware that she is and has discussed psychiatric medications during . Also sees a therapist Dr. Olmstead at the [facility]. Her next ap pointment there is May 10. She states she sees him every 2 weeks. Patient states she does have a history of depression. She admits to 2 psychiatric hospitalizations-one in 2018 and 2020. She states that she last had suicidal thoughts in February. She states that she is able and willing to go to the ER or call crisis if she experiences any suicidal thoughts. FYI. Call back only if further advice documented in this encounterOhio State Harding Hospital11-25-2024 Telephone encounter Note * Telephone Encounter - Ana Sawyer MSW - 05/03/2024 10:54 AM EST Leeanne spoke with patient and set up appt for patient to come in to the office and see Sw on 05/11 @12:30 to review social service programs in the community. Patient will come to see Sw at her office at [facility]. [facility]11-25-2024 Miscellaneous Notes* Telephone Encounter - Ana Sawyer MSW - 05/03/2024 10:54 AM EST Leeanne spoke with patient and set up appt for patient to come in to the office and see Sw on 05/11 @12:30 to review social service programs in the community. Patient will come to see Sw at her office at [facility]. documented in this encounterOhio State Harding Hospital11-25-2024 NoteUniversity Hospitals Conneaut Medical Center11-25-2024 History of Present illness Narrative* Zayda Parker APRN.COOK HELPER MEAT - 05/03/2024 10:13 AM EST Images from the original note were not included. Vending Machine Operator offered: Patient declines. INITIAL OB ASSESSMENT HPI: Melissa is a 29 year old White here to establish Obstetrical Care. Patient's last menstrual period was 03/13/2024 (exact date). from OB Dating Form. was unplanned but accepted, plans on keeping Complaints: (!) Pain on urination - resolved (treated for UTI and HSV outbreak 04/18/2024 at [facility]) OB History T1 L1 SAB1 IAB0 [...] harming myself has occurred to me. Never [place] Depression Scale Total 19 Feeling nervous, anxious [...] proteinuria, third trimester 12/20/2016 H/O macrosomia in in prior , currently 05/07/2024 Herpes simplex type 2 (HSV-2) infection affecting , antepartum, unspecified trimester 04/19/2024 Hyperlipidemia LGA (large for gestational age) 12/23/2016 12/23/16 - >95% Polyhydramnios 01/01/2017 Pre-existing type 2 diabetes mellitus in in third trimester 12/12/2016 12/23/16 - admitted to [facility] for glucoregulation, likely will need delivery at 37 weeks - KJ 12/12/2016 She is a Type 2 diabetic and started Insulin during the .Last HGB A1c 6.9 on 11/14/2016.She sees an technical customer support specialist, Dr Asif. Her records have been faxed here during the visit and are sent to [address] Gramajo review. TKRN January 14, 2017 EFW is approx 95%. Monitor closely, cons with care elsewhere, antepartum 12/12/2016 12/12/2016Patient is transferring care [facility]. She states she has moved from [place] to [place] and wishes to be seen here.There is some notations by her previous doctor ofnon-compliance issues with keeping appointments and diabetic diet/Insulin dosages. She states she was seen at the [facility] 11/18 for decreased movement and then again about the 3rd we Recurrent UTI Type 2 diabetes mellitus (HCC) PAST SURGICAL HISTORY Procedure Laterality Date CHOLECYSTECTOMY D&C, DIAG AND/OR THERAPEUTIC 2018 Current Outpatient Medications Medication Sig Dispense Refill [...] to each meal. 5 Each 11 Insulin [place], Disposable, (BD ULTRAFINE III MINI PEN) 31 [...] discussed with the Patient or Patient's Authorized Manager Fixed Income. As applicable, any other physician, advance practice provider, medical student, or other health professional student that will be observing or involved in the sensitive examination for educational or training purposes was discussed with the Patient or Authorized Manager Fixed Income. The Patient or Authorized Manager Fixed Income has agreed to proceed with the sensitive [...] intrauterine and positive cardiac activity SBIRT Melissa Ean Kaur was given the 4P's screening tool. [...] medications? Yes Pt states she abuse ETOH [id number] In the past month have you drunk [...] plus performing a brief intervention. Zayda Parker APRN.COOK HELPER MEAT ASSESSMENT: 29 year old at 7w6d wks gestational age PLAN: 1) Patient oriented to practice. Patient given new OB orientation folder. Discussed nutrition, folic acid supplementation, dietary guidelines, exercise, smoking, alcohol, caffeine, and drug use. Discussed gestational weight gain guidelines. Discussed routine OB labs including STD/HIV. Discussed how to access Your guide to a health and the Rehab Director Occupational Therapist. Discussed hemoglobin electrophoresis. Patient: Declines Reviewed midwifery and hogshead head matcher services that are available. 2) Screening: Hemoglobin [...] weeks): [] Consent [] Contraception - [] Indoor Landscape Architect Third trimester (36-40 weeks): [] GBS [] [...] units of NPH at bedtime Planning for warehouse laborer visit with Carrie Larsen Echo [] EKG [] Eye Exam [x] CMP [x] Hemoglobin A1C [x] 10.5 MFM consult placed. Unplanned - 05/07/2024 Comment: May 07, 2024 Patient states this is an unplanned . Patient unsure of paternity of baby. She states it could be her live-in boyfriend or her ex-. She plans on keeping the baby. Zayda Parker APRN.COOK HELPER MEAT Obesity Affecting in First Trimester - 05/07/2024 Comment: May 07, 2024 Pre BMI 31 Zayda Parker APRN.COOK HELPER MEAT History of Herpes Genitalis - 05/07/2024 Comment: Treated for HSV outbreak 04/18/2024 at [facility]. Plan for suppression therapy at 36 weeks. To notify with outbreaks. Zayda Parker APRN.CNP H/O Macrosomia in Infant in Prior , Currently - 05/07/2024 Comment: May 07, 2024 10 lb 2oz at 37w4d Zayda Parker APRN.CNP History of Polyhydramnios - 05/07/2024 Comment: 2017 delivery. Zayda Parker APRN.CNP History of Bipolar Disorder - 05/07/2024 History of Depression - 12/12/2016 Comment: May 07, 2024 Has history of bipolar depression diagnosed in 2014. She currently sees Dr. Womack, a psychiatrist at [facility] [place]. States that she recently had an appointment with him and has an upcoming appointment in June. Patient states he is aware that she is and has discussed psychiatric medications during . Taking Buspar and Prozac. Also sees a therapist Dr. Olmstead at the [facility]. Her next appointment there is May [...] Plans to quit this weekend. Zayda Parker APRN.CNP I spent 5 minutes counseling on risks, providing resources, and recommending smoking cessation. Zayda Parker APRN.CNP History of Alcohol Abuse - 05/07/2024 Comment: May 07, 2024 Patient states that she did abuse alcohol from [id number]. Denies any alcohol use this . Zayda Parker APRN.REYES History of Hemorrhage - 05/07/2024 Comment: May 07, 2024 600 mL, 2017. Chromosome Abnormality - 05/07/2024 Comment: May 07, 2024 Patient unsure of details - thinks she may be a carrier of something. Zayda Parker APRN.REYES History of Asthma - 05/07/2024 Comment: May [...] States her daughter has autism Zayda Parker APRN.COOK HELPER MEAT Nausea and Vomiting During - 05/07/2024 Comment: 05/07/24 Vitamin B6 and Unisom doses reviewed. To notify if prescription is needed. Zayda Parker APRN.COOK HELPER MEAT Uti (Urinary Tract Infection) in , Antepartum - 04/19/2024 Comment: April 19, 2024 Diagnosed in ER 04/18/24. Plan to rescreen. Zayda Parker APRN.COOK HELPER MEAT Follow up in 4 weeks or sooner prn. Plan for NT scan between 12w0d and 13w6d gestation. MFM consult placed. Zayda Parker APRN.COOK HELPER MEAT documented in this encounterCleveland [id number] Telephone encounter Note * Telephone Encounter - Tee Li RN - 04/30/2024 11:10 AM EST Reason for Call: Patient seeking care advice for elevated blood glucose, is , and she is not scheduled to see Endocrinology or OB until next week. Patient confirmed her [facility] PCP is currently managing her diabetes. [...] day Protocols used: Diabetes - High Blood Cgxfg-UIJCH-AT [facility]11-22-2024 Miscellaneous Notes* Telephone Encounter - Tee Li RN - 04/30/2024 11:10 AM EST Reason for Call: Patient seeking care advice for elevated blood glucose, is , and she is not scheduled to see Endocrinology or OB until next week. Patient confirmed her [facility] PCP is currently managing her diabetes. [...] day Protocols used: Diabetes - High Blood Wuhwe-RGFOL-MI documented in this encounterOhio [facility]11-20-2024 History of Present illness Narrative* Joanie Hurtado, TELEPHONE TRIAGE NURSE-COOK HELPER MEAT - 04/28/2024 8:40 AM EST Subjective Patient [...] scheduled to see her OB through the [facility] in May, has a ultrasound scheduled in [place] next week on May 03 and is scheduled to see her primary care provider Dr. Byrne on May 04. She will report effectiveness of medication to Dr. Byrne on her visit. She reports no signs or symptoms of complication at this time. No vaginalbleeding, abdominal or back pain. She did state that around the 3-week gestation phase she had an ultrasound at [facility] which did not detect but showed a [...] days Less than 8 weeks gestation of ([facility]) [facility] Work Phone: [phone]) 577-358411-15-2024 Telephone encounter Note* Telephone Encounter - Sis [...] patient to email Dr. Ca at . [facility]11-15-2024 Miscellaneous Notes* Telephone Encounter - Sis [...] advising patient to email Dr. Ca at [email or web address]. documented in this encounterOhio State [facility]ing Hospital11-11-2024 Telephone encounter Note * Telephone Encounter - Zayda Parker APRN.CNP - 04/19/2024 8:43 AM EST Noted. Zayda Parker APRN.CNP [facility]11-11-2024 Miscellaneous Notes* Telephone Encounter - Zayda [...] EH. Krys Murcia RN documented in this encounterOhio State Harding Hospital11-11-2024 Telephone encounter Note * Telephone Encounter - Krys Murcia RN - 04/19/2024 8:37 AM EST LMP 10 Approximately 5w2d. Patient seen at ER yesterday. She was diagnosed with HSV outbreak and UTI. She was prescribed Keflex and Acyclovir. Wanted our office to be aware before her 05/07 NOB with EH. Krys Murcia RN [facility]11-10-2024 Emergency department Note* Angy Lynne APRN-REYES [...] and concern for . Reports LMP 03/13/24. [id number]. She has been experiencing thin white discharge [...] Urine Yellow Appearance, Urine Turbid (*) Specific [place], Urine 1.048 (*) pH, Urine 6.0 Protein, [...] performed using a different test methodology at [facility] than other [facility]. Direct result comparison should only be made within the same method. C. TRACHOMATIS + N. GONORRHOEAE, AMPLIFIED - Normal Neisseria gonorrhea,Amplified Not Detected Chlamydia trachomatis, Amplified Not Detected URINE CULTURE URINALYSIS WITH REFLEX CULTURE AND MICROSCOPIC Narrative: The following orders were created for panel order Urinalysis with Reflex Culture and Microscopic. Procedure Abnormality Status --------- ------ Urinalysis with Reflex C...[[id number]] Abnormal Final result Extra Urine Bolton Tube[[id number]] Please view results for these tests on [...] outbreak RORY Patel 04/18/242139 documented in this encounterSt. [facility] Hospital Work Phone: 1(658) 720-360811-10-2024 Physician Emergency department Note* RORY Patel - [...] and concern for . Reports LMP 03/13/24. [id number]. She has been experiencing thin white discharge [...] Urine Yellow Appearance, Urine Turbid (*) Specific [place], Urine 1.048 (*) pH, Urine 6.0 Protein, [...] HCG measurement is performed using the Anson Apparent Access Immunoassay which detects intact HCG and free beta HCG subunit. This test is not indicated for use as a tumor marker. HCG testing is performed using a different test methodology at [facility] than other [facility]. Direct result comparison should only be made within the same method. C. TRACHOMATIS + N. GONORRHOEAE, AMPLIFIED - Normal Neisseria gonorrhea,Amplified Not Detected Chlamydia trachomatis, Amplified Not Detected URINE CULTURE URINALYSIS WITH REFLEX CULTURE AND MICROSCOPIC Narrative: The following orders were created for panel order Urinalysis with Reflex Culture and Microscopic. Procedure Abnormality Status --------- ------ Urinalysis with Reflex C...[[id number]] Abnormal Final result Extra Urine Bolton Tube[[id number]] Please view results for these tests on [...] #2 herpes simplex outbreak RORY Patel 04/18/242139 [facility] Work Phone: 1(585) 355-209111-07-2024 Telephone encounter Note* Telephone Encounter - Julia Cardona RN - 04/15/2024 3:52 PM EST Patient has appt - closing encounter. Julia Cardona RN [facility]11-07-2024 Miscellaneous Notes* Telephone Encounter - Julia [...] Pelvic pain? Was seen in ED in [facility] yesterday for sharp left sided pain [...] to: self Call patient at: at home [phone] (home) [phone] (cell) Payor: [employer] / [facility] / Product Type: Medicare / Paulo Hodges documented in this encounterOhio State Harding Hospital11-07-2024 Telephone encounter Note * Telephone Encounter - Idania Murphy RN - 04/15/2024 2:00 PM EST Left message to call office. PSS: Please attempt to call patient also to schedule New OB. Thank you. Idania Murphy RN [facility]11-07-2024 Telephone encounter Note* Telephone Encounter - Julia Cardona RN - 04/15/2024 11:03 AM EST Name and identified. LMP? 03/13/24 4w5d When did you have a + test? This week PNV? Not yet Pelvic pain? Was seen in ED in [facility] yesterday for sharp left sided pain [...] schedulers in this office. Julia Cardona RN [facility]11-07-2024 NoteDischarge Instructions Discharge Summary [place] [address] [place] [address] [id number] 04/14/2024 Patient: MELISSA KAUR Sex: Female : 1995 Age: 29y Thank you for visiting [facility]. You have been evaluated today by Milly [...] instructions verbalized by patient. Follow-up with: Channing iNxon MD, [facility], [facility], , [address] [place] [phone]. Follow up in four days even if well. Call for an appointment. Reason for referral: evaluation and treatment. Summary of care provided to patient. Jon Calvert MD, [place] MEMBER CERTIFICATION MANAGER, Women's [facility], Phone: [phone], [address] [place] [address]. Follow up in four days even if well. Call for an appointment. Reason for referral: evaluation and treatment. Summary of care provided to patient. You have been given the following additional information: 1 of 5 Discharge Instructions Patient Signature Facility Manager Fixed Income Date/Time General Instructions with ExitWriter [place] [address] [place] [address] [id number] 04/14/2024 Patient: MELISSA KAUR Sex: Female : 1995 Age: 29y Thank you for visiting [facility]. You have been evaluated today by Milly [...] by patient. Follow-up with: Channing Nixon MD, [facility], [facility], , [address] [place] [phone]. Follow up in four days even if well. Call for an appointment. Reason for referral: evaluation and treatment. Summary of care provided to patient. Jon Calvert MD, [place] MEMBER CERTIFICATION MANAGER, [facility], Phone: [phone], [address], [place] 2 of 5 Discharge Instructions [id number]. Follow up in four days even if [...] Stay away from alc (more content not included)...[facility] 04-14-2024 Telephone encounter Note* Telephone Encounter - Julia Cardona RN - 04/14/2024 8:34 AM EST Call placed to patient to triage for new OB appt. Left message for patient to call back Julia Cardona RN [facility]11-06-2024 Telephone encounter Note* Telephone Encounter - [...] to: self Call patient at: at home [phone] (home) [phone] (cell) Payor: [facility] / Plan: [facility] / Product Type: Medicare / Paulo Hodges [facility]08-16-2024 History of Present illness Narrative* Jamari [...] lipoidica F/u 3 months documented in this encounterSt. [facility] Hospital Work Phone: 1(247) 135-345307-18-2024 History of Present illness Narrative* Jamari Byrne [...] 4 times per day documented in this encounterSt. Elizabeth Hospital Work Phone: [phone]) [phone] History of Present illness Narrative* Jamari Byrne [...] 10 days transmitter good for 90 days Redye Hand used instead of smart phone Trulicity 1.5 [...] minutes after Hyperglycemia due to diabetes mellitus ([facility]) - metFORMIN (Glucophage) 1,000 mg tablet; Take 1 tablet (1,000 mg) by mouth 2 times a day. - glipiZIDE (Glucotrol) 5 mg tablet; Take 1 tablet (5 mg) by mouth 2 times a day. Exercise-induced asthma - albuterol 90 mcg/actuation inhaler; INHALE 1 TO 2 PUFFS EVERY 6 HOURS NEEDED documented in this [facility] Work Phone: 1(470) 309-332203-12-2024 History of Present illness Narrative* Mary Blackwell PA - 08/19/2023 10:20 AM EDT This note was created using tibditriter. Subjective Melissa Kaur is a 28 year [...] 12/20/2016 Hyperlipidemia LGA (large for gestational age) 12/23/2016 12/23/16 - >95% Polyhydramnios 01/01/2017 Pre-existing type 2 diabetes mellitus in in third trimester 12/12/2016 12/23/16 - admitted to [facility] for glucoregulation, likely will need delivery at 37 weeks - KJ 12/12/2016 She is a Type 2 diabetic and started Insulin during the .Last HGB A1c 6.9 on 11/14/2016.She sees an technical customer support specialist, Dr Asif. Her records have been faxed here during the visit and are sent to [address] Gramajo review. TKRN January 14, 2017 EFW is approx 95%. Monitor closely, cons with care elsewhere, antepartum 12/12/2016 12/12/2016Patient is transferring care from [place] [facility]. She states she has moved from [place] to [place] and wishes to be seen here.There is some notations by her previous doctor ofnon-compliance issues with keeping appointments and diabetic diet/Insulin dosages. She states she was seen at the [facility] 11/18 for decreased movement and then again [...] ER evaluation. BUDDY Mendoza documented in this encounterOhio State Harding Hospital02-01-2024 History of Present illness Narrative* Sigrid [...] a day. Hyperglycemia due to diabetes mellitus ([facility]) - Basic Metabolic Panel; Future - Hemoglobin A1C; Future documented in this [facility] Work Phone: 1(210) 956-544312-01-2023 History of Present illness Narrative* Jamari Byrne [...] this visit: Hyperglycemia due to diabetes mellitus ([facility]) - Dexcom G4 kaibab transmitter (Dexcom G6 Transmitter) device; Change as directed - Hemoglobin A1C; Future - Basic Metabolic Panel; Future F/u 2 months documented in this encounterSt. Elizabeth Hospital Work Phone: [phone]) 573-575912-01-2023 Instructions* Patient Instructions* Jamari Byrne MD - 05/09/2023 11:20 AM EST For technical sales support manager Kandace Padmini COOK HELPER MEAT documented in this encounterSt. Elizabeth Hospital Work Phone: [phone] History of Present illness Narrative* Jamari Byrne [...] HOURS NEEDED Hyperglycemia due to diabetes mellitus ([facility]) - dulaglutide (Trulicity) 1.5 mg/0.5 mL pen [...] units at bedtime subcutaneous - Dexcom G4 kaibab oyster planter (Dexcom G6 Redye Hand) misc; Use as instructed documented in this encounterSt. Elizabeth Hospital Work Phone: [phone]) 998-936107-07-2023 History of Present illness Narrative* Jamari Byrne MD - 12/13/2022 2:00 PM EDT Subjective Patient ID: Hoda Kaur is a 27 y.o. female who presents for 3 month. HPI father is Lucia Froster diabetic Type II dx at age 14 [...] this visit: Hyperglycemia due to diabetes mellitus ([facility]) - Dexcom G4 kaibab transmitter (Dexcom G6 Transmitter) device; Apply every 10 days - insulin glargine (Lantus U-100 Insulin) 100 unit/mL injection; Inject 10 Units under the skin once daily at bedtime. Take as directed per insulin instructions. - pen needle, diabetic 31 gauge x 5/16 needle; Inject nightly - Hemoglobin A1C; Future Other orders - Follow Up In Primary Care documented in this encounterSt. Elizabeth Hospital Work Phone: 1([phone]) 148-941503-11-2023 Instructions* Patient Instructions* Lazara Jon DO - 08/17/2022 7:51 PM EST test is negative. Treating presumptively for vaginal yeast infection with prescription for Diflucan. Test for sexually transmitted diseases is pending and you will be notified if there are any positive results. * Attachments The following attachments cannot be sent through Care Everywhere. * Vaginal Yeast Infection (Norwegian) documented in this [id number] History of Present illness Narrative* Lazara Jon DO - 08/17/2022 7:05 PM EST PATIENT NAME: Melissa Kaur [facility]: [address] [facility] [id number] DATE OF VISIT: 08/17/2022 DATE OF : [...] it is wet prep. Patient uses the [employer] system and will look for her results there. We will call her additionally, if there are positive test that needed a change in treatment plan. Lazara Jon 08/17/2022 documented in this [id number] History of Present illness Narrative* father is [...] when manic * ros * no cp [facility] Work Phone: [phone]) 618-362107-13-2022 History of Present illness NarrativePatient is a 26-year-old who comes in for a test of cure for trichomoniasis. Patient was here last week for test of cure for chlamydia. Patient reports that her partner has been treated and they havenot engaged in coitus since her diagnosis. 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 Patient reports she has not been [...] She reports that she has recently started TrulicityWMetaPackVersaillesShenzhou [employer] Work Phone: 1([phone]) 568-809107-09-2021 History of Present illness Narrative* Patient is [...] cutting.She is following with Dr Jackson at [facility] and seeing her counselor. She is currently [...] po bid and metformin 1000mg po bid. [facility] Work Phone: 1([phone]) 498-752807-26-2017 History of Past illness Narrative* Problem Noted Date Diagnosed Date Resolved Date Polyhydramnios 01/01/2017 07/11/2023 Threatened premature labor in third trimester 12/27/19 17 07/11/2023 Overview: December 26, 2016 Received betamethasone on 12/23 and 12/24/16. Piper Julian MD LGA (large for gestational age) 12/23/2016 07/11/2023 Overview: 12/23/16 - >95% Gestational proteinuria, third trimester 12/20/2016 07/11/2023 Overview: 12/20/16 - 24hr urine from [facility] on 12/13/16 was 323mg, BP & preE labs normal - KJ Gestational diabetes 12/20/2016 024 with care elsewhere, antepartum 12/12/2016 07/11/2023 Overview: 12/12/2016Patient is transferring care from [facility]. She states she has moved from [place] to [place] and wishes to be seen here.There is some notations by her previous doctor of non-compliance issues with keeping appointments and diabetic diet/Insulin dosages. She states she was seen at the [facility] 11/18 for decreased movement and then again about the 3rd week of October for threatened PTL. She states she was given Brethine in the hospital and sent home on no medications. She was last seen by her OB in [place] yesterday for [place] contractions. She denies any bleeding or LOF. Baby has been active. Some [place] contractions occasionally. Discussed with Dr Schulte and patient advised to monitor pain. If increases to call/come in. Kick counts discussed. TKRN Pre-existing type 2 diabetes mellitus in in third trimester 12/12/2016 07/11/2023 Overview: 12/23/16 - admitted to [facility] for glucoregulation, likely will need delivery at 37 weeks - KJ 12/12/2016 She is a Type 2 diabetic and started Insulin during the .Last HGB A1c 6.9 on 11/14/2016.She sees an technical customer support specialist, Dr Asif. Her records have been faxed here during the visit and are sent to [address] Gramajo review. TKRN January 14, 2017 EFW is approx 95%. Monitor closely, consider early delivery per MFM. Piper Julian MD documented as of this encounter (statuses as of 08/19/2023) [facility]* Diagnosis Yeast vaginitis- Primary Late menses Other disorder of menstruation and other abnormal bleeding from female genital tract Vaginal discharge Leukorrhea, not specified as infective [facility]* Diagnosis Hyperglycemia due to diabetes mellitus ([facility]) documented [facility] encounter [facility] Work Phone: Evaluation note* Diagnosis Exercise-induced asthma- Primary Exercise induced bronchospasm Hyperglycemia due to diabetes mellitus (CMS/HCC) documented in this [facility] Work Phone: Evaluation note* Diagnosis Hyperglycemia due to diabetes mellitus (CMS/HCC) documented in this encounter [facility] Work Phone: Evaluation note* Diagnosis Necrobiosis lipoidica- Primary Degenerative skin disorder Hyperglycemia due to diabetes mellitus ([facility]) documented in this encounter [facility] Work Phone: Evaluation note* Diagnosis Pain, dental- Primary Unspecified disorder of the teeth and supporting structures documented in this encounter [facility]* Diagnosis Sebaceous cyst- Primary Hyperglycemia due to diabetes mellitus ([facility]) Exercise-induced asthma Exercise induced bronchospasm documented [facility] Work Phone: Evaluation note* Diagnosis Urinary tract infection in mother during first trimester of ([facility])- Primary Herpes simplex vulvovaginitis documented in this encounter [facility] Work Phone: Evaluation note* Diagnosis Bacterial vaginosis- Primary Unspecified vaginitis and vulvovaginitis Less than 8 weeks gestation of ([facility]) documented in this encounter [facility] Work Phone: Evaluation note* Diagnosis Type 2 diabetes mellitus complicating , antepartum, first trimester- Primary Insulin controlled gestational diabetes mellitus (GDM) in first trimester High-risk , first trimester documented in this encounter [facility]* Diagnosis Bipolar depression (Multi)- Primary Bipolar I disorder, most recent episode (or current) depressed, unspecified Hyperglycemia due to diabetes mellitus (Multi) Cigarette nicotine dependence with other nicotine-induced disorder documented in this [facility] Work Phone: Evaluation note* Diagnosis Encounter [...] infectious and parasitic disease H/O macrosomia in infant in prior , [...] of the cervix documented in this encounter [facility]* Diagnosis Insulin controlled gestational diabetes mellitus (GDM) in first trimester documented in this encounter [facility]* Diagnosis Bacterial vaginosis- Primary Vaginitis and vulvovaginitis, unspecified documented in this encounter [facility] note* Diagnosis Insulin controlled gestational diabetes mellitus (GDM) in first trimester documented in this encounter [facility] note* Diagnosis Necrobiosis lipoidica- Primary Degenerative skin disorder Hyperglycemia due to diabetes mellitus (Multi) documented in this [facility] Work Phone: Evaluation note* Diagnosis Abdominal pain during in first trimester (HHS-HCC)- Primary documented in this encounter [facility] Work Phone: Evaluation note* Diagnosis Exercise-induced asthma (HHS-HCC)- Primary Exercise induced bronchospasm Hyperglycemia due to diabetes mellitus (Multi) Bipolar depression (Multi) Bipolar I disorder, most recent episode (or current) depressed, unspecified Necrobiosis lipoidica Degenerative skin disorder documented in this [facility] Work Phone: Evaluation note* Diagnosis 10 [...] of unspecified chromosome documented in this encounter [facility]* Diagnosis Insulin controlled gestational diabetes mellitus (GDM) in first trimester documented in this encounter [facility]* Diagnosis Insulin controlled gestational diabetes mellitus (GDM) in first trimester documented in this encounter [facility]* Diagnosis Insulin controlled gestational diabetes mellitus (GDM) in first trimester documented in this encounter [facility]* Diagnosis Encounter for screening for malformation using ultrasound- Primary 13 weeks gestation of state, incidental documented in this encounter [facility] note* Diagnosis H/O macrosomia in in prior , currently with other poor obstetric history Pre-existing type 2 diabetes mellitus in in first trimester Diabetes mellitus of mother, complicating , childbirth, or the puerperium, unspecified as to episode of care History of pre-eclampsia Personal history of other genital system and obstetric disorders documented [facility] encounter [facility]* Diagnosis Pre-existing type 2 diabetes mellitus in in second trimester- Primary Diabetes mellitus of mother, complicating , childbirth, or the puerperium, unspecified as to episode of care documented in this encounter [facility] note* Diagnosis Influenza A- Primary Influenza with other respiratory manifestations documented in this encounter [facility] Work Phone: Evaluation note* Diagnosis Pre-existing [...] at 32 weeks [facility] Diagnosis Pre-existing type 2 diabetes mellitus [...] in first trimester [facility] Diagnosis Pre-existing type 2 diabetes mellitus [...] in first trimester [facility] Diagnosis Pre-existing type 2 diabetes mellitus [...] vulva and perineum [facility] Diagnosis Pre-existing type 2 diabetes mellitus [...] , second trimester [facility] Diagnosis Pre-existing type 2 diabetes mellitus [...] for anatomic survey documented in this encounter [facility] note* Diagnosis Pre-existing type 2 diabetes mellitus [...] 9:41 AM ESTAssociated Problem(s): H/O macrosomia in infant in prior , currently Monthly growth assessment, measuring 11%ile at anatomy US today * Assessment & Plan Note - Pooja Latham MD - 08/10/2024 9:40 AM ESTAssociated Problem(s): Obesity affecting in first trimester TWG around 13 lbs from chart review documented in this encounter [facility] note* Diagnosis Pre-existing type 2 diabetes mellitus [...] OB DIP B/O [facility] Diagnosis Pre-existing type 2 diabetes mellitus [...] for anatomic survey documented [facility] this [facility]* Diagnosis Pre-existing type 2 diabetes mellitus [...] in first trimester [facility] Diagnosis Pre-existing type 2 diabetes mellitus [...] in first trimester [facility] Diagnosis Pre-existing type 2 diabetes mellitus [...] 1 [O35.9XX1]- Primary documented in this encounter [facility] note* Diagnosis Pre-existing type 2 diabetes mellitus in in first trimester ([facility])- Primary Diabetes mellitus of mother, complicating , childbirth, or the puerperium, unspecified as to episode of care History of pre-eclampsia Personal history of other genital system and obstetric disorders H/O macrosomia in infant in prior , currently ([facility]) with other poor obstetric history 17 weeks gestation of ([facility]) state, incidental Encounter for screening for malformation using ultrasound ([facility]) Obesity affecting in first trimester, unspecified obesity type ([facility])- Primary Herpes simplex type 2 (HSV-2) infection affecting , antepartum, unspecified trimester ([facility]) Pre-existing type 2 diabetes mellitus in in first trimester (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) 21 weeks gestation of ([facility]) state, incidental Pre-existing type 2 diabetes mellitus in in first trimester ([facility])- Primary Diabetes mellitus of mother, complicating , childbirth, or the puerperium, unspecified as to episode of care Obesity affecting in first trimester, unspecified obesity type ([facility]) History of pre-eclampsia Personal history of other genital system and obstetric disorders H/O macrosomia in in prior , currently ([facility]) with other poor obstetric history History of bipolar disorder Personal history of affective disorder 21 weeks gestation of ([facility]) state, incidental Encounter for anatomic survey ([facility]) Encounter for anatomic survey Pre-existing type 2 diabetes mellitus in in first trimester ([facility])- Primary Diabetes mellitus of mother, complicating , childbirth, or the puerperium, unspecified as to episode of care Obesity affecting in first trimester, unspecified obesity type ([facility]) documented in this encounter [facility] note* Diagnosis Exercise-induced asthma Exercise induced bronchospasm Bipolar depression (Multi) Bipolar I disorder, most recent episode (or current) depressed, unspecified documented in this encounter [facility] Work Phone: Evaluation note* Diagnosis Pre-existing type 2 diabetes mellitus in in first trimester ([facility])- Primary Diabetes mellitus of mother, complicating , childbirth, or the puerperium, unspecified as to episode of care History of pre-eclampsia Personal history of other genital system and obstetric disorders H/O macrosomia in infant in prior , currently ([facility]) with other poor obstetric history 17 weeks gestation of ([facility]) state, incidental Encounter for screening for malformation using ultrasound ([facility]) Obesity affecting in first trimester, unspecified obesity type ([facility])- Primary Herpes simplex type 2 (HSV-2) infection affecting , antepartum, unspecified trimester ([facility]) Pre-existing type 2 diabetes mellitus in in first trimester (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) 21 weeks gestation of ([facility]) state, incidental Pre-existing type 2 diabetes mellitus in in first trimester ([facility])- Primary Diabetes mellitus of mother, complicating , childbirth, or the puerperium, unspecified as to episode of care Obesity affecting in first trimester, unspecified obesity type ([facility]) History of pre-eclampsia Personal history of other genital system and obstetric disorders H/O macrosomia in in prior , currently ([facility]) with other poor obstetric history History of bipolar disorder Personal history of affective disorder 21 weeks gestation of ([facility]) state, incidental Encounter for anatomic survey ([facility]) Encounter for anatomic survey with uncertain dates in first trimester ([facility]) [facility]* Diagnosis Pre-existing type 2 diabetes mellitus in in first trimester ([facility])- Primary Diabetes mellitus of mother, complicating , childbirth, or the puerperium, unspecified as to episode of care History of pre-eclampsia Personal history of other genital system and obstetric disorders H/O macrosomia in in prior , currently ([facility]) with other poor obstetric history 17 weeks gestation of ([facility]) state, incidental Encounter for screening for malformation using ultrasound ([facility]) Obesity affecting in first trimester, unspecified obesity type ([facility])- Primary Herpes simplex type 2 (HSV-2) infection affecting , antepartum, unspecified trimester ([facility]) Pre-existing type 2 diabetes mellitus in in first trimester (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) 21 weeks gestation of ([facility]) state, incidental Pre-existing type 2 diabetes mellitus in in first trimester ([facility])- Primary Diabetes mellitus of mother, complicating , childbirth, or the puerperium, unspecified as to episode of care Obesity affecting in first trimester, unspecified obesity type ([facility]) History of pre-eclampsia Personal history of other genital system and obstetric disorders H/O macrosomia in in prior , currently ([facility]) with other poor obstetric history History of bipolar disorder Personal history of affective disorder 21 weeks gestation of ([facility]) state, incidental Encounter for anatomic survey ([facility]) Encounter for anatomic survey complication before ([facility])- Primary Other specified complication, antepartum [facility] Pre-existing type 2 diabetes mellitus in in first trimester ([facility])- Primary Diabetes mellitus of mother, complicating , childbirth, or the puerperium, unspecified as to episode of care History of pre-eclampsia Personal history of other genital system and obstetric disorders H/O macrosomia in in prior , currently ([facility]) with other poor obstetric history 17 weeks gestation of ([facility]) state, incidental Encounter for screening for malformation using ultrasound ([facility]) Obesity affecting in first trimester, unspecified obesity type ([facility])- Primary Herpes simplex type 2 (HSV-2) infection affecting , antepartum, unspecified trimester ([facility]) Pre-existing type 2 diabetes mellitus in in first trimester (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) 21 weeks gestation of ([facility]) state, incidental Pre-existing type 2 diabetes mellitus in in first trimester ([facility])- Primary Diabetes mellitus of mother, complicating , childbirth, or the puerperium, unspecified as to episode of care Obesity affecting in first trimester, unspecified obesity type ([facility]) History of pre-eclampsia Personal history of other genital system and obstetric disorders H/O macrosomia in infant in prior , currently ([facility]) with other poor obstetric history History of bipolar disorder Personal history of affective disorder 21 weeks gestation of ([facility]) state, incidental Encounter for anatomic survey ([facility]) Encounter for anatomic survey Screening for diabetes mellitus- Primary Obesity affecting in first trimester, unspecified obesity type ([facility]) Pre-existing type 2 diabetes mellitus in in first trimester ([facility]) Diabetes mellitus of mother, complicating , childbirth, or the puerperium, unspecified as to episode of care Herpes simplex type 2 (HSV-2) infection affecting , antepartum, unspecified trimester (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) 25 weeks gestation of ([facility]) state, incidental [facility]* Diagnosis Pre-existing type 2 diabetes mellitus in in first trimester ([facility])- Primary Diabetes mellitus of mother, complicating , childbirth, or the puerperium, unspecified as to episode of care History of pre-eclampsia Personal history of other genital system and obstetric disorders H/O macrosomia in infant in prior , currently ([facility]) with other poor obstetric history 17 weeks gestation of ([facility]) state, incidental Encounter for screening for malformation using ultrasound ([facility]) Obesity affecting in first trimester, unspecified obesity type ([facility])- Primary Herpes simplex type 2 (HSV-2) infection affecting , antepartum, unspecified trimester ([facility]) Pre-existing type 2 diabetes mellitus in in first trimester (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) 21 weeks gestation of ([facility]) state, incidental Pre-existing type 2 diabetes mellitus in in first trimester ([facility])- Primary Diabetes mellitus of mother, complicating , childbirth, or the puerperium, unspecified as to episode of care Obesity affecting in first trimester, unspecified obesity type ([facility]) History of pre-eclampsia Personal history of other genital system and obstetric disorders H/O macrosomia in in prior , currently ([facility]) with other poor obstetric history History of bipolar disorder Personal history of affective disorder 21 weeks gestation of ([facility]) state, incidental Encounter for anatomic survey ([facility]) Encounter for anatomic survey Type 2 diabetes mellitus during , antepartum, third trimester ([facility])- Primary Insulin controlled gestational diabetes mellitus (GDM) in first trimester ([facility]) High-risk , third trimester ([facility]) documented in this encounter [facility] note* Diagnosis Pre-existing type 2 diabetes mellitus in in first trimester ([facility])- Primary Diabetes mellitus of mother, complicating , childbirth, or the puerperium, unspecified as to episode of care History of pre-eclampsia Personal history of other genital system and obstetric disorders H/O macrosomia in infant in prior , currently ([facility]) with other poor obstetric history 17 weeks gestation of ([facility]) state, incidental Encounter for screening for malformation using ultrasound ([facility]) Obesity affecting in first trimester, unspecified obesity type ([facility])- Primary Herpes simplex type 2 (HSV-2) infection affecting , antepartum, unspecified trimester ([facility]) Pre-existing type 2 diabetes mellitus in in first trimester (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) 21 weeks gestation of ([facility]) state, incidental Pre-existing type 2 diabetes mellitus in in first trimester ([facility])- Primary Diabetes mellitus of mother, complicating , childbirth, or the puerperium, unspecified as to episode of care Obesity affecting in first trimester, unspecified obesity type ([facility]) History of pre-eclampsia Personal history of other genital system and obstetric disorders H/O macrosomia in infant in prior , currently ([facility]) with other poor obstetric history History of bipolar disorder Personal history of affective disorder 21 weeks gestation of ([facility]) state, incidental Encounter for anatomic survey ([facility]) Encounter for anatomic survey Procedure not carried out- Primary Procedure not carried out for other reasons Supervision of high risk in second trimester ([facility])- Primary Unspecified high-risk 27 weeks gestation of ([facility]) state, incidental Burning with urination Dysuria Vaginal discharge Leukorrhea, not specified as infective [facility] noteNo assessment information availableWPro[facility] Work Phone: Evaluation [facility]* Diagnosis Pre-existing type 2 diabetes mellitus in in first trimester ([facility])- Primary Diabetes mellitus of mother, complicating , childbirth, or the puerperium, unspecified as to episode of care History of pre-eclampsia Personal history of other genital system and obstetric disorders H/O macrosomia in infant in prior , currently ([facility]) with other poor obstetric history 17 weeks gestation of ([facility]) state, incidental Encounter for screening for malformation using ultrasound ([facility]) Obesity affecting in first trimester, unspecified obesity type ([facility])- Primary Herpes simplex type 2 (HSV-2) infection affecting , antepartum, unspecified trimester ([facility]) Pre-existing type 2 diabetes mellitus in in first trimester (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) 21 weeks gestation of ([facility]) state, incidental Pre-existing type 2 diabetes mellitus in in first trimester ([facility])- Primary Diabetes mellitus of mother, complicating , childbirth, or the puerperium, unspecified as to episode of care Obesity affecting in first trimester, unspecified obesity type ([facility]) History of pre-eclampsia Personal history of other genital system and obstetric disorders H/O macrosomia in in prior , currently ([facility]) with other poor obstetric history History of bipolar disorder Personal history of affective disorder 21 weeks gestation of ([facility]) state, incidental Encounter for anatomic survey ([facility]) Encounter for anatomic survey Supervision of high risk in second trimester ([facility])- Primary Unspecified high-risk 27 weeks gestation of ([facility]) state, incidental Burning with urination Dysuria Vaginal discharge Leukorrhea, not specified as infective HSV (herpes simplex virus) infection Herpes simplex without mention of complication [facility]* Diagnosis Pre-existing type 2 diabetes mellitus in in first trimester ([facility])- Primary Diabetes mellitus of mother, complicating , childbirth, or the puerperium, unspecified as to episode of care History of pre-eclampsia Personal history of other genital system and obstetric disorders H/O macrosomia in infant in prior , currently ([facility]) with other poor obstetric history 17 weeks gestation of ([facility]) state, incidental Encounter for screening for malformation using ultrasound ([facility]) Obesity affecting in first trimester, unspecified obesity type ([facility])- Primary Herpes simplex type 2 (HSV-2) infection affecting , antepartum, unspecified trimester ([facility]) Pre-existing type 2 diabetes mellitus in in first trimester (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) 21 weeks gestation of ([facility]) state, incidental Pre-existing type 2 diabetes mellitus in in first trimester ([facility])- Primary Diabetes mellitus of mother, complicating , childbirth, or the puerperium, unspecified as to episode of care Obesity affecting in first trimester, unspecified obesity type ([facility]) History of pre-eclampsia Personal history of other genital system and obstetric disorders H/O macrosomia in infant in prior , currently ([facility]) with other poor obstetric history History of bipolar disorder Personal history of affective disorder 21 weeks gestation of ([facility]) state, incidental Encounter for anatomic survey ([facility]) Encounter for anatomic survey BV (bacterial vaginosis)- Primary Vaginitis and vulvovaginitis, unspecified documented in this encounter [facility]* Diagnosis Pre-existing type 2 diabetes mellitus in in first trimester ([facility])- Primary Diabetes mellitus of mother, complicating , childbirth, or the puerperium, unspecified as to episode of care History of pre-eclampsia Personal history of other genital system and obstetric disorders H/O macrosomia in in prior , currently ([facility]) with other poor obstetric history 17 weeks gestation of ([facility]) state, incidental Encounter for screening for malformation using ultrasound ([facility]) Obesity affecting in first trimester, unspecified obesity type ([facility])- Primary Herpes simplex type 2 (HSV-2) infection affecting , antepartum, unspecified trimester ([facility]) Pre-existing type 2 diabetes mellitus in in first trimester (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) 21 weeks gestation of ([facility]) state, incidental Pre-existing type 2 diabetes mellitus in in first trimester ([facility])- Primary Diabetes mellitus of mother, complicating , childbirth, or the puerperium, unspecified as to episode of care Obesity affecting in first trimester, unspecified obesity type ([facility]) History of pre-eclampsia Personal history of other genital system and obstetric disorders H/O macrosomia in infant in prior , currently ([facility]) with other poor obstetric history History of bipolar disorder Personal history of affective disorder 21 weeks gestation of ([facility]) state, incidental Encounter for anatomic survey ([facility]) Encounter for anatomic survey Supervision of high risk in third trimester ([facility])- Primary Unspecified high-risk History of pre-eclampsia Personal history of other genital system and obstetric disorders 29 weeks gestation of ([facility]) state, incidental Pre-existing type 2 diabetes mellitus in in third trimester (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) Diabetes mellitus of mother, complicating , childbirth, or the puerperium, unspecified as to episode of care Tobacco smoking complicating in first trimester (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 * Assessment & Plan Note - [...] Problem(s): Tobacco smoking complicating in first trimester (HCC) decreased to 2 cig a day, encouraged [...] (HSV-2) infection affecting , antepartum, unspecified trimester ([facility]) prophylaxis ordered, no outbreaks recently [facility] Diagnosis Pre-existing type 2 diabetes mellitus in in first trimester ([facility])- Primary Diabetes mellitus of mother, complicating , childbirth, or the puerperium, unspecified as to episode of care History of pre-eclampsia Personal history of other genital system and obstetric disorders H/O macrosomia in infant in prior , currently ([facility]) with other poor obstetric history 17 weeks gestation of ([facility]) state, incidental Encounter for screening for malformation using ultrasound ([facility]) Obesity affecting in first trimester, unspecified obesity type ([facility])- Primary Herpes simplex type 2 (HSV-2) infection affecting , antepartum, unspecified trimester ([facility]) Pre-existing type 2 diabetes mellitus in in first trimester (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) 21 weeks gestation of ([facility]) state, incidental Pre-existing type 2 diabetes mellitus in in first trimester ([facility])- Primary Diabetes mellitus of mother, complicating , childbirth, or the puerperium, unspecified as to episode of care Obesity affecting in first trimester, unspecified obesity type ([facility]) History of pre-eclampsia Personal history of other genital system and obstetric disorders H/O macrosomia in in prior , currently ([facility]) with other poor obstetric history History of bipolar disorder Personal history of affective disorder 21 weeks gestation of ([facility]) state, incidental Encounter for anatomic survey ([facility]) Encounter for anatomic survey Supervision of high risk in third trimester ([facility])- Primary Unspecified high-risk History of pre-eclampsia Personal history of other genital system and obstetric disorders 29 weeks gestation of ([facility]) state, incidental Pre-existing type 2 diabetes mellitus in in third trimester (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) Diabetes mellitus of mother, complicating , childbirth, or the puerperium, unspecified as to episode of care Tobacco smoking complicating in first trimester (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) Herpes simplex type 2 (HSV-2) infection affecting , antepartum, unspecified trimester ([facility]) Maternal care for (suspected) abnormality and damage, unspecified, fetus 1 ([facility])- Primary [facility] Diagnosis Pre-existing type 2 diabetes mellitus in in first trimester ([facility])- Primary Diabetes mellitus of mother, complicating , childbirth, or the puerperium, unspecified as to episode of care History of pre-eclampsia Personal history of other genital system and obstetric disorders H/O macrosomia in infant in prior , currently ([facility]) with other poor obstetric history 17 weeks gestation of ([facility]) state, incidental Encounter for screening for malformation using ultrasound ([facility]) Obesity affecting in first trimester, unspecified obesity type ([facility])- Primary Herpes simplex type 2 (HSV-2) infection affecting , antepartum, unspecified trimester ([facility]) Pre-existing type 2 diabetes mellitus in in first trimester (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) 21 weeks gestation of ([facility]) state, incidental Pre-existing type 2 diabetes mellitus in in first trimester ([facility])- Primary Diabetes mellitus of mother, complicating , childbirth, or the puerperium, unspecified as to episode of care Obesity affecting in first trimester, unspecified obesity type ([facility]) History of pre-eclampsia Personal history of other genital system and obstetric disorders H/O macrosomia in in prior , currently ([facility]) with other poor obstetric history History of bipolar disorder Personal history of affective disorder 21 weeks gestation of ([facility]) state, incidental Encounter for anatomic survey ([facility]) Encounter for anatomic survey Supervision of high risk in third trimester ([facility])- Primary Unspecified high-risk History of pre-eclampsia Personal history of other genital system and obstetric disorders 29 weeks gestation of ([facility]) state, incidental Pre-existing type 2 diabetes mellitus in in third trimester (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) Diabetes mellitus of mother, complicating , childbirth, or the puerperium, unspecified as to episode of care Tobacco smoking complicating in first trimester (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) Herpes simplex type 2 (HSV-2) infection affecting , antepartum, unspecified trimester ([facility]) Supervision of high risk in third trimester ([facility])- Primary Unspecified high-risk Pre-existing type 2 diabetes mellitus in in third trimester ([facility]) Diabetes mellitus of mother, complicating , childbirth, or the puerperium, unspecified as to episode of care Herpes simplex type 2 (HSV-2) infection affecting , antepartum, unspecified trimester ([facility]) H/O macrosomia in infant in prior , currently ([facility]) with other poor obstetric history History of pre-eclampsia Personal history of other genital system and obstetric disorders 31 weeks gestation of ([facility]) state, incidental * Assessment & Plan Note - Whit Morton MD - 10/18/2024 4:08 PM EDT Associated Problem(s): Herpes simplex type 2 (HSV-2) infection affecting , antepartum, unspecified trimester ([facility]) Taking acyclovir * Assessment & Plan Note - Whit Morton MD - 10/18/2024 4:08 PM EDT Associated Problem(s): H/O macrosomia in in prior , currently ([facility]) Growth us scheduled * Assessment & Plan Note - Whit Morton MD - 10/18/2024 4:08 PM EDT Associated Problem(s): History of pre-eclampsia Continue ASA [facility] Diagnosis Pre-existing type 2 diabetes mellitus in in first trimester ([facility])- Primary Diabetes mellitus of mother, complicating , childbirth, or the puerperium, unspecified as to episode of care History of pre-eclampsia Personal history of other genital system and obstetric disorders H/O macrosomia in in prior , currently (HCC) with other poor obstetric history 17 weeks gestation of ([facility]) state, incidental Encounter for screening for malformation using ultrasound ([facility]) Obesity affecting in first trimester, unspecified obesity type ([facility])- Primary Herpes simplex type 2 (HSV-2) infection affecting , antepartum, unspecified trimester ([facility]) Pre-existing type 2 diabetes mellitus in in first trimester (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) 21 weeks gestation of ([facility]) state, incidental Pre-existing type 2 diabetes mellitus in in first trimester ([facility])- Primary Diabetes mellitus of mother, complicating , childbirth, or the puerperium, unspecified as to episode of care Obesity affecting in first trimester, unspecified obesity type ([facility]) History of pre-eclampsia Personal history of other genital system and obstetric disorders H/O macrosomia in infant in prior , currently ([facility]) with other poor obstetric history History of bipolar disorder Personal history of affective disorder 21 weeks gestation of ([facility]) state, incidental Encounter for anatomic survey ([facility]) Encounter for anatomic survey Supervision of high risk in third trimester ([facility])- Primary Unspecified high-risk History of pre-eclampsia Personal history of other genital system and obstetric disorders 29 weeks gestation of ([facility]) state, incidental Pre-existing type 2 diabetes mellitus in in third trimester (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) Diabetes mellitus of mother, complicating , childbirth, or the puerperium, unspecified as to episode of care Tobacco smoking complicating in first trimester (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) Herpes simplex type 2 (HSV-2) infection affecting , antepartum, unspecified trimester ([facility]) Supervision of high risk in third trimester ([facility])- Primary Unspecified high-risk Pre-existing type 2 diabetes mellitus in in third trimester (HCC) Diabetes mellitus of mother, complicating , childbirth, or the puerperium, unspecified as to episode of care Herpes simplex type 2 (HSV-2) infection affecting , antepartum, unspecified trimester ([facility]) H/O macrosomia in infant in prior , currently (HCC) with other poor obstetric history History of pre-eclampsia Personal history of other genital system and obstetric disorders 31 weeks gestation of ([facility]) state, incidental Supervision of high risk in third trimester ([facility])- Primary Unspecified high-risk Pre-existing type 2 diabetes mellitus in in third trimester ([facility]) Diabetes mellitus of mother, complicating , childbirth, [...] METABOLIC PANEL; Future [facility] Diagnosis Pre-existing type 2 diabetes mellitus in in first trimester ([facility])- Primary Diabetes mellitus of mother, complicating , childbirth, or the puerperium, unspecified as to episode of care History of pre-eclampsia Personal history of other genital system and obstetric disorders H/O macrosomia in in prior , currently ([facility]) with other poor obstetric history 17 weeks gestation of ([facility]) state, incidental Encounter for screening for malformation using ultrasound ([facility]) Obesity affecting in first trimester, unspecified obesity type ([facility])- Primary Herpes simplex type 2 (HSV-2) infection affecting , antepartum, unspecified trimester ([facility]) Pre-existing type 2 diabetes mellitus in in first trimester (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) 21 weeks gestation of ([facility]) state, incidental Pre-existing type 2 diabetes mellitus in in first trimester ([facility])- Primary Diabetes mellitus of mother, complicating , childbirth, or the puerperium, unspecified as to episode of care Obesity affecting in first trimester, unspecified obesity type ([facility]) History of pre-eclampsia Personal history of other genital system and obstetric disorders H/O macrosomia in in prior , currently ([facility]) with other poor obstetric history History of bipolar disorder Personal history of affective disorder 21 weeks gestation of ([facility]) state, incidental Encounter for anatomic survey ([facility]) Encounter for anatomic survey Supervision of high risk in third trimester ([facility])- Primary Unspecified high-risk History of pre-eclampsia Personal history of other genital system and obstetric disorders 29 weeks gestation of ([facility]) state, incidental Pre-existing type 2 diabetes mellitus in in third trimester (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) Diabetes mellitus of mother, complicating , childbirth, or the puerperium, unspecified as to episode of care Tobacco smoking complicating in first trimester (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) Herpes simplex type 2 (HSV-2) infection affecting , antepartum, unspecified trimester ([facility]) Supervision of high risk in third trimester ([facility])- Primary Unspecified high-risk Pre-existing type 2 diabetes mellitus in in third trimester ([facility]) Diabetes mellitus of mother, complicating , childbirth, or the puerperium, unspecified as to episode of care Herpes simplex type 2 (HSV-2) infection affecting , antepartum, unspecified trimester ([facility]) H/O macrosomia in in prior , currently ([facility]) with other poor obstetric history History of pre-eclampsia Personal history of other genital system and obstetric disorders 31 weeks gestation of ([facility]) state, incidental Supervision of high risk in third trimester ([facility])- Primary Unspecified high-risk Pre-existing type 2 diabetes mellitus in in third trimester ([facility]) Diabetes mellitus of mother, complicating , childbirth, or the puerperium, unspecified as to episode of care Exposure to parvovirus Contact with or exposure to other viral diseases History of pre-eclampsia Personal history of other genital system and obstetric disorders Pre-existing type 2 diabetes mellitus in in first trimester ([facility])- Primary Diabetes mellitus of mother, complicating , childbirth, or the puerperium, unspecified as to episode of care Obesity affecting in first trimester, unspecified obesity type ([facility]) 33 weeks gestation of ([facility]) state, incidental Pre-existing type 2 diabetes mellitus in in third trimester ([facility])- Primary Diabetes mellitus of mother, complicating , childbirth, or the puerperium, unspecified as to episode of care History of pre-eclampsia Personal history of other genital system and obstetric disorders H/O macrosomia in infant in prior , currently ([facility]) with other poor obstetric history 33 weeks gestation of ([facility]) state, incidental Request for sterilization Herpes simplex type 2 (HSV-2) infection affecting , antepartum, unspecified trimester ([facility]) [facility] Diagnosis Pre-existing type 2 diabetes mellitus in in first trimester ([facility])- Primary Diabetes mellitus of mother, complicating , childbirth, or the puerperium, unspecified as to episode of care History of pre-eclampsia Personal history of other genital system and obstetric disorders H/O macrosomia in infant in prior , currently ([facility]) with other poor obstetric history 17 weeks gestation of ([facility]) state, incidental Encounter for screening for malformation using ultrasound ([facility]) Obesity affecting in first trimester, unspecified obesity type ([facility])- Primary Herpes simplex type 2 (HSV-2) infection affecting , antepartum, unspecified trimester ([facility]) Pre-existing type 2 diabetes mellitus in in first trimester (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) 21 weeks gestation of ([facility]) state, incidental Pre-existing type 2 diabetes mellitus in in first trimester ([facility])- Primary Diabetes mellitus of mother, complicating , childbirth, or the puerperium, unspecified as to episode of care Obesity affecting in first trimester, unspecified obesity type ([facility]) History of pre-eclampsia Personal history of other genital system and obstetric disorders H/O macrosomia in in prior , currently ([facility]) with other poor obstetric history History of bipolar disorder Personal history of affective disorder 21 weeks gestation of ([facility]) state, incidental Encounter for anatomic survey ([facility]) Encounter for anatomic survey Supervision of high risk in third trimester ([facility])- Primary Unspecified high-risk History of pre-eclampsia Personal history of other genital system and obstetric disorders 29 weeks gestation of ([facility]) state, incidental Pre-existing type 2 diabetes mellitus in in third trimester (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) Diabetes mellitus of mother, complicating , childbirth, or the puerperium, unspecified as to episode of care Tobacco smoking complicating in first trimester (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) Herpes simplex type 2 (HSV-2) infection affecting , antepartum, unspecified trimester ([facility]) Supervision of high risk in third trimester ([facility])- Primary Unspecified high-risk Pre-existing type 2 diabetes mellitus in in third trimester ([facility]) Diabetes mellitus of mother, complicating , childbirth, or the puerperium, unspecified as to episode of care Herpes simplex type 2 (HSV-2) infection affecting , antepartum, unspecified trimester ([facility]) H/O macrosomia in in prior , currently ([facility]) with other poor obstetric history History of pre-eclampsia Personal history of other genital system and obstetric disorders 31 weeks gestation of ([facility]) state, incidental Supervision of high risk in third trimester ([facility])- Primary Unspecified high-risk Pre-existing type 2 diabetes mellitus in in third trimester ([facility]) Diabetes mellitus of mother, complicating , childbirth, or the puerperium, unspecified as to episode of care Exposure to parvovirus Contact with or exposure to other viral diseases History of pre-eclampsia Personal history of other genital system and obstetric disorders Pre-existing type 2 diabetes mellitus in in third trimester ([facility])- Primary Diabetes mellitus of mother, complicating , childbirth, or the puerperium, unspecified as to episode of care History of pre-eclampsia Personal history of other genital system and obstetric disorders H/O macrosomia in in prior , currently ([facility]) with other poor obstetric history 33 weeks gestation of ([facility]) state, incidental Request for sterilization Herpes simplex type 2 (HSV-2) infection affecting , antepartum, unspecified trimester ([facility]) * Assessment & Plan Note - William [...] 11:08 AM EDTAssociated Problem(s): H/O macrosomia in infant in prior , currently ([facility]) EFW on growth US shows AGA and expected to be smaller than 1st baby. Growth US with [facility] today. Orders: URINE OB DIP B/O * Assessment & Plan Note - William Gramajo MD - 11/02/2024 11:08 AM EDTAssociated Problem(s): Herpes simplex type 2 (HSV-2) infection affecting , antepartum, unspecified trimester ([facility]) On acyclovir prophylaxis documented [facility]* Diagnosis Pre-existing type 2 diabetes mellitus in in first trimester ([facility])- Primary Diabetes mellitus of mother, complicating , childbirth, or the puerperium, unspecified as to episode of care History of pre-eclampsia Personal history of other genital system and obstetric disorders H/O macrosomia in in prior , currently ([facility]) with other poor obstetric history 17 weeks gestation of ([facility]) state, incidental Encounter for screening for malformation using ultrasound ([facility]) Obesity affecting in first trimester, unspecified obesity type ([facility])- Primary Herpes simplex type 2 (HSV-2) infection affecting , antepartum, unspecified trimester ([facility]) Pre-existing type 2 diabetes mellitus in in first trimester (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) 21 weeks gestation of ([facility]) state, incidental Pre-existing type 2 diabetes mellitus in in first trimester ([facility])- Primary Diabetes mellitus of mother, complicating , childbirth, or the puerperium, unspecified as to episode of care Obesity affecting in first trimester, unspecified obesity type ([facility]) History of pre-eclampsia Personal history of other genital system and obstetric disorders H/O macrosomia in infant in prior , currently ([facility]) with other poor obstetric history History of bipolar disorder Personal history of affective disorder 21 weeks gestation of ([facility]) state, incidental Encounter for anatomic survey ([facility]) Encounter for anatomic survey Supervision of high risk in third trimester ([facility])- Primary Unspecified high-risk History of pre-eclampsia Personal history of other genital system and obstetric disorders 29 weeks gestation of ([facility]) state, incidental Pre-existing type 2 diabetes mellitus in in third trimester (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) Diabetes mellitus of mother, complicating , childbirth, or the puerperium, unspecified as to episode of care Tobacco smoking complicating in first trimester (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) Herpes simplex type 2 (HSV-2) infection affecting , antepartum, unspecified trimester ([facility]) Supervision of high risk in third trimester ([facility])- Primary Unspecified high-risk Pre-existing type 2 diabetes mellitus in in third trimester ([facility]) Diabetes mellitus of mother, complicating , childbirth, or the puerperium, unspecified as to episode of care Herpes simplex type 2 (HSV-2) infection affecting , antepartum, unspecified trimester ([facility]) H/O macrosomia in infant in prior , currently ([facility]) with other poor obstetric history History of pre-eclampsia Personal history of other genital system and obstetric disorders 31 weeks gestation of ([facility]) state, incidental Supervision of high risk in third trimester ([facility])- Primary Unspecified high-risk Pre-existing type 2 diabetes mellitus in in third trimester ([facility]) Diabetes mellitus of mother, complicating , childbirth, or the puerperium, unspecified as to episode of care Exposure to parvovirus Contact with or exposure to other viral diseases History of pre-eclampsia Personal history of other genital system and obstetric disorders Pre-existing type 2 diabetes mellitus in in third trimester ([facility])- Primary Diabetes mellitus of mother, complicating , childbirth, or the puerperium, unspecified as to episode of care History of pre-eclampsia Personal history of other genital system and obstetric disorders H/O macrosomia in in prior , currently ([facility]) with other poor obstetric history 33 weeks gestation of ([facility]) state, incidental Request for sterilization Herpes simplex type 2 (HSV-2) infection affecting , antepartum, unspecified trimester ([facility]) Type 2 diabetes mellitus affecting in third trimester, antepartum ([facility])- Primary High-risk , third trimester ([facility]) documented in this encounter [facility]* Diagnosis Pre-existing type 2 diabetes mellitus in in first trimester ([facility])- Primary Diabetes mellitus of mother, complicating , childbirth, or the puerperium, unspecified as to episode of care History of pre-eclampsia Personal history of other genital system and obstetric disorders H/O macrosomia in infant in prior , currently ([facility]) with other poor obstetric history 17 weeks gestation of ([facility]) state, incidental Encounter for screening for malformation using ultrasound ([facility]) Obesity affecting in first trimester, unspecified obesity type ([facility])- Primary Herpes simplex type 2 (HSV-2) infection affecting , antepartum, unspecified trimester ([facility]) Pre-existing type 2 diabetes mellitus in in first trimester (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) 21 weeks gestation of ([facility]) state, incidental Pre-existing type 2 diabetes mellitus in in first trimester ([facility])- Primary Diabetes mellitus of mother, complicating , childbirth, or the puerperium, unspecified as to episode of care Obesity affecting in first trimester, unspecified obesity type ([facility]) History of pre-eclampsia Personal history of other genital system and obstetric disorders H/O macrosomia in infant in prior , currently ([facility]) with other poor obstetric history History of bipolar disorder Personal history of affective disorder 21 weeks gestation of ([facility]) state, incidental Encounter for anatomic survey ([facility]) Encounter for anatomic survey Supervision of high risk in third trimester ([facility])- Primary Unspecified high-risk History of pre-eclampsia Personal history of other genital system and obstetric disorders 29 weeks gestation of ([facility]) state, incidental Pre-existing type 2 diabetes mellitus in in third trimester (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) Diabetes mellitus of mother, complicating , childbirth, or the puerperium, unspecified as to episode of care Tobacco smoking complicating in first trimester (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) Herpes simplex type 2 (HSV-2) infection affecting , antepartum, unspecified trimester ([facility]) Supervision of high risk in third trimester ([facility])- Primary Unspecified high-risk Pre-existing type 2 diabetes mellitus in in third trimester ([facility]) Diabetes mellitus of mother, complicating , childbirth, or the puerperium, unspecified as to episode of care Herpes simplex type 2 (HSV-2) infection affecting , antepartum, unspecified trimester ([facility]) H/O macrosomia in in prior , currently ([facility]) with other poor obstetric history History of pre-eclampsia Personal history of other genital system and obstetric disorders 31 weeks gestation of ([facility]) state, incidental Supervision of high risk in third trimester ([facility])- Primary Unspecified high-risk Pre-existing type 2 diabetes mellitus in in third trimester ([facility]) Diabetes mellitus of mother, complicating , childbirth, or the puerperium, unspecified as to episode of care Exposure to parvovirus Contact with or exposure to other viral diseases History of pre-eclampsia Personal history of other genital system and obstetric disorders Pre-existing type 2 diabetes mellitus in in third trimester ([facility])- Primary Diabetes mellitus of mother, complicating , childbirth, or the puerperium, unspecified as to episode of care History of pre-eclampsia Personal history of other genital system and obstetric disorders H/O macrosomia in infant in prior , currently ([facility]) with other poor obstetric history 33 weeks gestation of ([facility]) state, incidental Request for sterilization Herpes simplex type 2 (HSV-2) infection affecting , antepartum, unspecified trimester ([facility]) Type 2 diabetes mellitus during , antepartum, third trimester ([facility])- Primary [facility] Diagnosis Pre-existing type 2 diabetes mellitus in in first trimester ([facility])- Primary Diabetes mellitus of mother, complicating , childbirth, or the puerperium, unspecified as to episode of care History of pre-eclampsia Personal history of other genital system and obstetric disorders H/O macrosomia in infant in prior , currently ([facility]) with other poor obstetric history 17 weeks gestation of ([facility]) state, incidental Encounter for screening for malformation using ultrasound ([facility]) Obesity affecting in first trimester, unspecified obesity type ([facility])- Primary Herpes simplex type 2 (HSV-2) infection affecting , antepartum, unspecified trimester ([facility]) Pre-existing type 2 diabetes mellitus in in first trimester (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) 21 weeks gestation of ([facility]) state, incidental Pre-existing type 2 diabetes mellitus in in first trimester ([facility])- Primary Diabetes mellitus of mother, complicating , childbirth, or the puerperium, unspecified as to episode of care Obesity affecting in first trimester, unspecified obesity type ([facility]) History of pre-eclampsia Personal history of other genital system and obstetric disorders H/O macrosomia in in prior , currently ([facility]) with other poor obstetric history History of bipolar disorder Personal history of affective disorder 21 weeks gestation of ([facility]) state, incidental Encounter for anatomic survey ([facility]) Encounter for anatomic survey Supervision of high risk in third trimester ([facility])- Primary Unspecified high-risk History of pre-eclampsia Personal history of other genital system and obstetric disorders 29 weeks gestation of ([facility]) state, incidental Pre-existing type 2 diabetes mellitus in in third trimester (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) Diabetes mellitus of mother, complicating , childbirth, or the puerperium, unspecified as to episode of care Tobacco smoking complicating in first trimester (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) Herpes simplex type 2 (HSV-2) infection affecting , antepartum, unspecified trimester ([facility]) Supervision of high risk in third trimester ([facility])- Primary Unspecified high-risk Pre-existing type 2 diabetes mellitus in in third trimester ([facility]) Diabetes mellitus of mother, complicating , childbirth, or the puerperium, unspecified as to episode of care Herpes simplex type 2 (HSV-2) infection affecting , antepartum, unspecified trimester ([facility]) H/O macrosomia in infant in prior , currently ([facility]) with other poor obstetric history History of pre-eclampsia Personal history of other genital system and obstetric disorders 31 weeks gestation of ([facility]) state, incidental Supervision of high risk in third trimester ([facility])- Primary Unspecified high-risk Pre-existing type 2 diabetes mellitus in in third trimester ([facility]) Diabetes mellitus of mother, complicating , childbirth, or the puerperium, unspecified as to episode of care Exposure to parvovirus Contact with or exposure to other viral diseases History of pre-eclampsia Personal history of other genital system and obstetric disorders Pre-existing type 2 diabetes mellitus in in third trimester ([facility])- Primary Diabetes mellitus of mother, complicating , childbirth, or the puerperium, unspecified as to episode of care History of pre-eclampsia Personal history of other genital system and obstetric disorders H/O macrosomia in in prior , currently ([facility]) with other poor obstetric history 33 weeks gestation of ([facility]) state, incidental Request for sterilization Herpes simplex type 2 (HSV-2) infection affecting , antepartum, unspecified trimester ([facility]) complication before ([facility]) Other specified complication, antepartum [facility] Pre-existing type 2 diabetes mellitus in in first trimester ([facility])- Primary Diabetes mellitus of mother, complicating , childbirth, or the puerperium, unspecified as to episode of care History of pre-eclampsia Personal history of other genital system and obstetric disorders H/O macrosomia in in prior , currently ([facility]) with other poor obstetric history 17 weeks gestation of ([facility]) state, incidental Encounter for screening for malformation using ultrasound ([facility]) Obesity affecting in first trimester, unspecified obesity type ([facility])- Primary Herpes simplex type 2 (HSV-2) infection affecting , antepartum, unspecified trimester ([facility]) Pre-existing type 2 diabetes mellitus in in first trimester (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) 21 weeks gestation of ([facility]) state, incidental Pre-existing type 2 diabetes mellitus in in first trimester ([facility])- Primary Diabetes mellitus of mother, complicating , childbirth, or the puerperium, unspecified as to episode of care Obesity affecting in first trimester, unspecified obesity type ([facility]) History of pre-eclampsia Personal history of other genital system and obstetric disorders H/O macrosomia in infant in prior , currently ([facility]) with other poor obstetric history History of bipolar disorder Personal history of affective disorder 21 weeks gestation of ([facility]) state, incidental Encounter for anatomic survey ([facility]) Encounter for anatomic survey Supervision of high risk in third trimester ([facility])- Primary Unspecified high-risk History of pre-eclampsia Personal history of other genital system and obstetric disorders 29 weeks gestation of ([facility]) state, incidental Pre-existing type 2 diabetes mellitus in in third trimester (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) Diabetes mellitus of mother, complicating , childbirth, or the puerperium, unspecified as to episode of care Tobacco smoking complicating in first trimester (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) Herpes simplex type 2 (HSV-2) infection affecting , antepartum, unspecified trimester ([facility]) Supervision of high risk in third trimester ([facility])- Primary Unspecified high-risk Pre-existing type 2 diabetes mellitus in in third trimester ([facility]) Diabetes mellitus of mother, complicating , childbirth, or the puerperium, unspecified as to episode of care Herpes simplex type 2 (HSV-2) infection affecting , antepartum, unspecified trimester ([facility]) H/O macrosomia in infant in prior , currently ([facility]) with other poor obstetric history History of pre-eclampsia Personal history of other genital system and obstetric disorders 31 weeks gestation of ([facility]) state, incidental Supervision of high risk in third trimester ([facility])- Primary Unspecified high-risk Pre-existing type 2 diabetes mellitus in in third trimester ([facility]) Diabetes mellitus of mother, complicating , childbirth, or the puerperium, unspecified as to episode of care Exposure to parvovirus Contact with or exposure to other viral diseases History of pre-eclampsia Personal history of other genital system and obstetric disorders Pre-existing type 2 diabetes mellitus in in third trimester ([facility])- Primary Diabetes mellitus of mother, complicating , childbirth, or the puerperium, unspecified as to episode of care History of pre-eclampsia Personal history of other genital system and obstetric disorders H/O macrosomia in in prior , currently ([facility]) with other poor obstetric history 33 weeks gestation of ([facility]) state, incidental Request for sterilization Herpes simplex type 2 (HSV-2) infection affecting , antepartum, unspecified trimester ([facility]) 33 weeks gestation of ([facility])- Primary state, incidental complication before ([facility]) Other specified complication, antepartum Pre-existing type 2 diabetes mellitus in in third trimester ([facility]) Diabetes mellitus of mother, complicating , childbirth, or the puerperium, unspecified as to episode of care Supervision of high risk in third trimester ([facility]) Unspecified high-risk pruritus, third trimester ([facility]) [facility] Diagnosis Pre-existing type 2 diabetes mellitus in in first trimester ([facility])- Primary Diabetes mellitus of mother, complicating , childbirth, or the puerperium, unspecified as to episode of care History of pre-eclampsia Personal history of other genital system and obstetric disorders H/O macrosomia in in prior , currently ([facility]) with other poor obstetric history 17 weeks gestation of ([facility]) state, incidental Encounter for screening for malformation using ultrasound ([facility]) Obesity affecting in first trimester, unspecified obesity type ([facility])- Primary Herpes simplex type 2 (HSV-2) infection affecting , antepartum, unspecified trimester ([facility]) Pre-existing type 2 diabetes mellitus in in first trimester (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) 21 weeks gestation of ([facility]) state, incidental Pre-existing type 2 diabetes mellitus in in first trimester ([facility])- Primary Diabetes mellitus of mother, complicating , childbirth, or the puerperium, unspecified as to episode of care Obesity affecting in first trimester, unspecified obesity type ([facility]) History of pre-eclampsia Personal history of other genital system and obstetric disorders H/O macrosomia in in prior , currently ([facility]) with other poor obstetric history History of bipolar disorder Personal history of affective disorder 21 weeks gestation of ([facility]) state, incidental Encounter for anatomic survey ([facility]) Encounter for anatomic survey Supervision of high risk in third trimester ([facility])- Primary Unspecified high-risk History of pre-eclampsia Personal history of other genital system and obstetric disorders 29 weeks gestation of ([facility]) state, incidental Pre-existing type 2 diabetes mellitus in in third trimester (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) Diabetes mellitus of mother, complicating , childbirth, or the puerperium, unspecified as to episode of care Tobacco smoking complicating in first trimester (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) Herpes simplex type 2 (HSV-2) infection affecting , antepartum, unspecified trimester ([facility]) Supervision of high risk in third trimester ([facility])- Primary Unspecified high-risk Pre-existing type 2 diabetes mellitus in in third trimester ([facility]) Diabetes mellitus of mother, complicating , childbirth, or the puerperium, unspecified as to episode of care Herpes simplex type 2 (HSV-2) infection affecting , antepartum, unspecified trimester ([facility]) H/O macrosomia in in prior , currently ([facility]) with other poor obstetric history History of pre-eclampsia Personal history of other genital system and obstetric disorders 31 weeks gestation of ([facility]) state, incidental Supervision of high risk in third trimester ([facility])- Primary Unspecified high-risk Pre-existing type 2 diabetes mellitus in in third trimester ([facility]) Diabetes mellitus of mother, complicating , childbirth, or the puerperium, unspecified as to episode of care Exposure to parvovirus Contact with or exposure to other viral diseases History of pre-eclampsia Personal history of other genital system and obstetric disorders Pre-existing type 2 diabetes mellitus in in third trimester ([facility])- Primary Diabetes mellitus of mother, complicating , childbirth, or the puerperium, unspecified as to episode of care History of pre-eclampsia Personal history of other genital system and obstetric disorders H/O macrosomia in infant in prior , currently ([facility]) with other poor obstetric history 33 weeks gestation of ([facility]) state, incidental Request for sterilization Herpes simplex type 2 (HSV-2) infection affecting , antepartum, unspecified trimester ([facility]) Pre-existing type 2 diabetes mellitus in in first trimester ([facility])- Primary Diabetes mellitus of mother, complicating , childbirth, or the puerperium, unspecified as to episode of care 34 weeks gestation of ([facility]) state, incidental [facility] Diagnosis Pre-existing type 2 diabetes mellitus in in first trimester ([facility])- Primary Diabetes mellitus of mother, complicating , childbirth, or the puerperium, unspecified as to episode of care History of pre-eclampsia Personal history of other genital system and obstetric disorders H/O macrosomia in infant in prior , currently ([facility]) with other poor obstetric history 17 weeks gestation of ([facility]) state, incidental Encounter for screening for malformation using ultrasound ([facility]) Obesity affecting in first trimester, unspecified obesity type ([facility])- Primary Herpes simplex type 2 (HSV-2) infection affecting , antepartum, unspecified trimester ([facility]) Pre-existing type 2 diabetes mellitus in in first trimester (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) 21 weeks gestation of ([facility]) state, incidental Pre-existing type 2 diabetes mellitus in in first trimester ([facility])- Primary Diabetes mellitus of mother, complicating , childbirth, or the puerperium, unspecified as to episode of care Obesity affecting in first trimester, unspecified obesity type ([facility]) History of pre-eclampsia Personal history of other genital system and obstetric disorders H/O macrosomia in in prior , currently ([facility]) with other poor obstetric history History of bipolar disorder Personal history of affective disorder 21 weeks gestation of ([facility]) state, incidental Encounter for anatomic survey ([facility]) Encounter for anatomic survey Supervision of high risk in third trimester ([facility])- Primary Unspecified high-risk History of pre-eclampsia Personal history of other genital system and obstetric disorders 29 weeks gestation of ([facility]) state, incidental Pre-existing type 2 diabetes mellitus in in third trimester (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) Diabetes mellitus of mother, complicating , childbirth, or the puerperium, unspecified as to episode of care Tobacco smoking complicating in first trimester (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) Herpes simplex type 2 (HSV-2) infection affecting , antepartum, unspecified trimester ([facility]) Supervision of high risk in third trimester ([facility])- Primary Unspecified high-risk Pre-existing type 2 diabetes mellitus in in third trimester ([facility]) Diabetes mellitus of mother, complicating , childbirth, or the puerperium, unspecified as to episode of care Herpes simplex type 2 (HSV-2) infection affecting , antepartum, unspecified trimester ([facility]) H/O macrosomia in infant in prior , currently ([facility]) with other poor obstetric history History of pre-eclampsia Personal history of other genital system and obstetric disorders 31 weeks gestation of ([facility]) state, incidental Supervision of high risk in third trimester ([facility])- Primary Unspecified high-risk Pre-existing type 2 diabetes mellitus in in third trimester ([facility]) Diabetes mellitus of mother, complicating , childbirth, or the puerperium, unspecified as to episode of care Exposure to parvovirus Contact with or exposure to other viral diseases History of pre-eclampsia Personal history of other genital system and obstetric disorders Pre-existing type 2 diabetes mellitus in in third trimester ([facility])- Primary Diabetes mellitus of mother, complicating , childbirth, or the puerperium, unspecified as to episode of care History of pre-eclampsia Personal history of other genital system and obstetric disorders H/O macrosomia in in prior , currently ([facility]) with other poor obstetric history 33 weeks gestation of ([facility]) state, incidental Request for sterilization Herpes simplex type 2 (HSV-2) infection affecting , antepartum, unspecified trimester ([facility]) Pre-existing type 2 diabetes mellitus in in third trimester ([facility])- Primary Diabetes mellitus of mother, complicating , childbirth, or the puerperium, unspecified as to episode of care pruritus, third trimester ([facility]) History of pre-eclampsia Personal history of other genital system and obstetric disorders H/O macrosomia in infant in prior , currently (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) Other specified complication, antepartum 34 weeks gestation of ([facility]) state, incidental documented in this encounter [facility] note* Diagnosis Pre-existing type 2 diabetes mellitus in in first trimester ([facility])- Primary Diabetes mellitus of mother, complicating , childbirth, or the puerperium, unspecified as to episode of care History of pre-eclampsia Personal history of other genital system and obstetric disorders H/O macrosomia in infant in prior , currently ([facility]) with other poor obstetric history 17 weeks gestation of ([facility]) state, incidental Encounter for screening for malformation using ultrasound ([facility]) Obesity affecting in first trimester, unspecified obesity type ([facility])- Primary Herpes simplex type 2 (HSV-2) infection affecting , antepartum, unspecified trimester ([facility]) Pre-existing type 2 diabetes mellitus in in first trimester (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) 21 weeks gestation of ([facility]) state, incidental Pre-existing type 2 diabetes mellitus in in first trimester ([facility])- Primary Diabetes mellitus of mother, complicating , childbirth, or the puerperium, unspecified as to episode of care Obesity affecting in first trimester, unspecified obesity type ([facility]) History of pre-eclampsia Personal history of other genital system and obstetric disorders H/O macrosomia in in prior , currently ([facility]) with other poor obstetric history History of bipolar disorder Personal history of affective disorder 21 weeks gestation of ([facility]) state, incidental Encounter for anatomic survey ([facility]) Encounter for anatomic survey Supervision of high risk in third trimester ([facility])- Primary Unspecified high-risk History of pre-eclampsia Personal history of other genital system and obstetric disorders 29 weeks gestation of ([facility]) state, incidental Pre-existing type 2 diabetes mellitus in in third trimester (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) Diabetes mellitus of mother, complicating , childbirth, or the puerperium, unspecified as to episode of care Tobacco smoking complicating in first trimester (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) Herpes simplex type 2 (HSV-2) infection affecting , antepartum, unspecified trimester ([facility]) Supervision of high risk in third trimester ([facility])- Primary Unspecified high-risk Pre-existing type 2 diabetes mellitus in in third trimester ([facility]) Diabetes mellitus of mother, complicating , childbirth, or the puerperium, unspecified as to episode of care Herpes simplex type 2 (HSV-2) infection affecting , antepartum, unspecified trimester ([facility]) H/O macrosomia in in prior , currently ([facility]) with other poor obstetric history History of pre-eclampsia Personal history of other genital system and obstetric disorders 31 weeks gestation of ([facility]) state, incidental Supervision of high risk in third trimester ([facility])- Primary Unspecified high-risk Pre-existing type 2 diabetes mellitus in in third trimester ([facility]) Diabetes mellitus of mother, complicating , childbirth, or the puerperium, unspecified as to episode of care Exposure to parvovirus Contact with or exposure to other viral diseases History of pre-eclampsia Personal history of other genital system and obstetric disorders Pre-existing type 2 diabetes mellitus in in third trimester ([facility])- Primary Diabetes mellitus of mother, complicating , childbirth, or the puerperium, unspecified as to episode of care History of pre-eclampsia Personal history of other genital system and obstetric disorders H/O macrosomia in infant in prior , currently ([facility]) with other poor obstetric history 33 weeks gestation of ([facility]) state, incidental Request for sterilization Herpes simplex type 2 (HSV-2) infection affecting , antepartum, unspecified trimester ([facility]) Pre-existing type 2 diabetes mellitus in in third trimester ([facility])- Primary Diabetes mellitus of mother, complicating , childbirth, or the puerperium, unspecified as to episode of care 35 weeks gestation of ([facility]) state, incidental Supervision of high risk in third trimester ([facility]) Unspecified high-risk [facility] Diagnosis Pre-existing type 2 diabetes mellitus in in first trimester ([facility])- Primary Diabetes mellitus of mother, complicating , childbirth, or the puerperium, unspecified as to episode of care History of pre-eclampsia Personal history of other genital system and obstetric disorders H/O macrosomia in infant in prior , currently ([facility]) with other poor obstetric history 17 weeks gestation of ([facility]) state, incidental Encounter for screening for malformation using ultrasound ([facility]) Obesity affecting in first trimester, unspecified obesity type ([facility])- Primary Herpes simplex type 2 (HSV-2) infection affecting , antepartum, unspecified trimester ([facility]) Pre-existing type 2 diabetes mellitus in in first trimester (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) 21 weeks gestation of ([facility]) state, incidental Pre-existing type 2 diabetes mellitus in in first trimester ([facility])- Primary Diabetes mellitus of mother, complicating , childbirth, or the puerperium, unspecified as to episode of care Obesity affecting in first trimester, unspecified obesity type ([facility]) History of pre-eclampsia Personal history of other genital system and obstetric disorders H/O macrosomia in infant in prior , currently ([facility]) with other poor obstetric history History of bipolar disorder Personal history of affective disorder 21 weeks gestation of ([facility]) state, incidental Encounter for anatomic survey ([facility]) Encounter for anatomic survey Supervision of high risk in third trimester ([facility])- Primary Unspecified high-risk History of pre-eclampsia Personal history of other genital system and obstetric disorders 29 weeks gestation of ([facility]) state, incidental Pre-existing type 2 diabetes mellitus in in third trimester (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) Diabetes mellitus of mother, complicating , childbirth, or the puerperium, unspecified as to episode of care Tobacco smoking complicating in first trimester (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) Herpes simplex type 2 (HSV-2) infection affecting , antepartum, unspecified trimester ([facility]) Supervision of high risk in third trimester ([facility])- Primary Unspecified high-risk Pre-existing type 2 diabetes mellitus in in third trimester ([facility]) Diabetes mellitus of mother, complicating , childbirth, or the puerperium, unspecified as to episode of care Herpes simplex type 2 (HSV-2) infection affecting , antepartum, unspecified trimester ([facility]) H/O macrosomia in infant in prior , currently ([facility]) with other poor obstetric history History of pre-eclampsia Personal history of other genital system and obstetric disorders 31 weeks gestation of ([facility]) state, incidental Supervision of high risk in third trimester ([facility])- Primary Unspecified high-risk Pre-existing type 2 diabetes mellitus in in third trimester ([facility]) Diabetes mellitus of mother, complicating , childbirth, or the puerperium, unspecified as to episode of care Exposure to parvovirus Contact with or exposure to other viral diseases History of pre-eclampsia Personal history of other genital system and obstetric disorders Pre-existing type 2 diabetes mellitus in in third trimester ([facility])- Primary Diabetes mellitus of mother, complicating , childbirth, or the puerperium, unspecified as to episode of care History of pre-eclampsia Personal history of other genital system and obstetric disorders H/O macrosomia in infant in prior , currently ([facility]) with other poor obstetric history 33 weeks gestation of ([facility]) state, incidental Request for sterilization Herpes simplex type 2 (HSV-2) infection affecting , antepartum, unspecified trimester ([facility]) Pre-existing type 2 diabetes mellitus in in first trimester ([facility])- Primary Diabetes mellitus of mother, complicating , childbirth, or the puerperium, unspecified as to episode of care 35 weeks gestation of ([facility]) state, incidental documented in this encounter [facility] note* Diagnosis Pre-existing type 2 diabetes mellitus in in first trimester ([facility])- Primary Diabetes mellitus of mother, complicating , childbirth, or the puerperium, unspecified as to episode of care History of pre-eclampsia Personal history of other genital system and obstetric disorders H/O macrosomia in infant in prior , currently ([facility]) with other poor obstetric history 17 weeks gestation of ([facility]) state, incidental Encounter for screening for malformation using ultrasound ([facility]) Obesity affecting in first trimester, unspecified obesity type ([facility])- Primary Herpes simplex type 2 (HSV-2) infection affecting , antepartum, unspecified trimester ([facility]) Pre-existing type 2 diabetes mellitus in in first trimester (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) 21 weeks gestation of ([facility]) state, incidental Pre-existing type 2 diabetes mellitus in in first trimester ([facility])- Primary Diabetes mellitus of mother, complicating , childbirth, or the puerperium, unspecified as to episode of care Obesity affecting in first trimester, unspecified obesity type ([facility]) History of pre-eclampsia Personal history of other genital system and obstetric disorders H/O macrosomia in in prior , currently ([facility]) with other poor obstetric history History of bipolar disorder Personal history of affective disorder 21 weeks gestation of ([facility]) state, incidental Encounter for anatomic survey ([facility]) Encounter for anatomic survey Supervision of high risk in third trimester ([facility])- Primary Unspecified high-risk History of pre-eclampsia Personal history of other genital system and obstetric disorders 29 weeks gestation of ([facility]) state, incidental Pre-existing type 2 diabetes mellitus in in third trimester (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) Diabetes mellitus of mother, complicating , childbirth, or the puerperium, unspecified as to episode of care Tobacco smoking complicating in first trimester (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) Herpes simplex type 2 (HSV-2) infection affecting , antepartum, unspecified trimester ([facility]) Supervision of high risk in third trimester ([facility])- Primary Unspecified high-risk Pre-existing type 2 diabetes mellitus in in third trimester ([facility]) Diabetes mellitus of mother, complicating , childbirth, or the puerperium, unspecified as to episode of care Herpes simplex type 2 (HSV-2) infection affecting , antepartum, unspecified trimester ([facility]) H/O macrosomia in infant in prior , currently ([facility]) with other poor obstetric history History of pre-eclampsia Personal history of other genital system and obstetric disorders 31 weeks gestation of ([facility]) state, incidental Supervision of high risk in third trimester ([facility])- Primary Unspecified high-risk Pre-existing type 2 diabetes mellitus in in third trimester ([facility]) Diabetes mellitus of mother, complicating , childbirth, or the puerperium, unspecified as to episode of care Exposure to parvovirus Contact with or exposure to other viral diseases History of pre-eclampsia Personal history of other genital system and obstetric disorders Pre-existing type 2 diabetes mellitus in in third trimester ([facility])- Primary Diabetes mellitus of mother, complicating , childbirth, or the puerperium, unspecified as to episode of care History of pre-eclampsia Personal history of other genital system and obstetric disorders H/O macrosomia in in prior , currently ([facility]) with other poor obstetric history 33 weeks gestation of ([facility]) state, incidental Request for sterilization Herpes simplex type 2 (HSV-2) infection affecting , antepartum, unspecified trimester ([facility]) Pre-existing type 2 diabetes mellitus in in third trimester ([facility])- Primary Diabetes mellitus of mother, complicating , childbirth, or the puerperium, unspecified as to episode of care 35 weeks gestation of ([facility]) state, incidental Vaginal itching Pruritus of genital organs [facility] Pre-existing type 2 diabetes mellitus in in first trimester ([facility])- Primary Diabetes mellitus of mother, complicating , childbirth, or the puerperium, unspecified as to episode of care History of pre-eclampsia Personal history of other genital system and obstetric disorders H/O macrosomia in in prior , currently ([facility]) with other poor obstetric history 17 weeks gestation of ([facility]) state, incidental Encounter for screening for malformation using ultrasound ([facility]) Obesity affecting in first trimester, unspecified obesity type ([facility])- Primary Herpes simplex type 2 (HSV-2) infection affecting , antepartum, unspecified trimester ([facility]) Pre-existing type 2 diabetes mellitus in in first trimester (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) 21 weeks gestation of ([facility]) state, incidental Pre-existing type 2 diabetes mellitus in in first trimester ([facility])- Primary Diabetes mellitus of mother, complicating , childbirth, or the puerperium, unspecified as to episode of care Obesity affecting in first trimester, unspecified obesity type ([facility]) History of pre-eclampsia Personal history of other genital system and obstetric disorders H/O macrosomia in in prior , currently ([facility]) with other poor obstetric history History of bipolar disorder Personal history of affective disorder 21 weeks gestation of ([facility]) state, incidental Encounter for anatomic survey ([facility]) Encounter for anatomic survey Supervision of high risk in third trimester ([facility])- Primary Unspecified high-risk History of pre-eclampsia Personal history of other genital system and obstetric disorders 29 weeks gestation of ([facility]) state, incidental Pre-existing type 2 diabetes mellitus in in third trimester (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) Diabetes mellitus of mother, complicating , childbirth, or the puerperium, unspecified as to episode of care Tobacco smoking complicating in first trimester (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) Herpes simplex type 2 (HSV-2) infection affecting , antepartum, unspecified trimester ([facility]) Supervision of high risk in third trimester ([facility])- Primary Unspecified high-risk Pre-existing type 2 diabetes mellitus in in third trimester ([facility]) Diabetes mellitus of mother, complicating , childbirth, or the puerperium, unspecified as to episode of care Herpes simplex type 2 (HSV-2) infection affecting , antepartum, unspecified trimester ([facility]) H/O macrosomia in infant in prior , currently ([facility]) with other poor obstetric history History of pre-eclampsia Personal history of other genital system and obstetric disorders 31 weeks gestation of ([facility]) state, incidental Supervision of high risk in third trimester ([facility])- Primary Unspecified high-risk Pre-existing type 2 diabetes mellitus in in third trimester ([facility]) Diabetes mellitus of mother, complicating , childbirth, or the puerperium, unspecified as to episode of care Exposure to parvovirus Contact with or exposure to other viral diseases History of pre-eclampsia Personal history of other genital system and obstetric disorders Pre-existing type 2 diabetes mellitus in in third trimester ([facility])- Primary Diabetes mellitus of mother, complicating , childbirth, or the puerperium, unspecified as to episode of care History of pre-eclampsia Personal history of other genital system and obstetric disorders H/O macrosomia in in prior , currently ([facility]) with other poor obstetric history 33 weeks gestation of ([facility]) state, incidental Request for sterilization Herpes simplex type 2 (HSV-2) infection affecting , antepartum, unspecified trimester ([facility]) Obesity affecting in first trimester, unspecified obesity type ([facility])- Primary Pre-existing type 2 diabetes mellitus in in first trimester ([facility]) Diabetes mellitus of mother, complicating , childbirth, or the puerperium, unspecified as to episode of care [facility] Diagnosis Pre-existing type 2 diabetes mellitus in in first trimester ([facility])- Primary Diabetes mellitus of mother, complicating , childbirth, or the puerperium, unspecified as to episode of care History of pre-eclampsia Personal history of other genital system and obstetric disorders H/O macrosomia in in prior , currently ([facility]) with other poor obstetric history 17 weeks gestation of ([facility]) state, incidental Encounter for screening for malformation using ultrasound ([facility]) Obesity affecting in first trimester, unspecified obesity type ([facility])- Primary Herpes simplex type 2 (HSV-2) infection affecting , antepartum, unspecified trimester ([facility]) Pre-existing type 2 diabetes mellitus in in first trimester (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) 21 weeks gestation of ([facility]) state, incidental Pre-existing type 2 diabetes mellitus in in first trimester ([facility])- Primary Diabetes mellitus of mother, complicating , childbirth, or the puerperium, unspecified as to episode of care Obesity affecting in first trimester, unspecified obesity type ([facility]) History of pre-eclampsia Personal history of other genital system and obstetric disorders H/O macrosomia in in prior , currently ([facility]) with other poor obstetric history History of bipolar disorder Personal history of affective disorder 21 weeks gestation of ([facility]) state, incidental Encounter for anatomic survey ([facility]) Encounter for anatomic survey Supervision of high risk in third trimester ([facility])- Primary Unspecified high-risk History of pre-eclampsia Personal history of other genital system and obstetric disorders 29 weeks gestation of ([facility]) state, incidental Pre-existing type 2 diabetes mellitus in in third trimester (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) Diabetes mellitus of mother, complicating , childbirth, or the puerperium, unspecified as to episode of care Tobacco smoking complicating in first trimester (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) Herpes simplex type 2 (HSV-2) infection affecting , antepartum, unspecified trimester ([facility]) Supervision of high risk in third trimester ([facility])- Primary Unspecified high-risk Pre-existing type 2 diabetes mellitus in in third trimester ([facility]) Diabetes mellitus of mother, complicating , childbirth, or the puerperium, unspecified as to episode of care Herpes simplex type 2 (HSV-2) infection affecting , antepartum, unspecified trimester ([facility]) H/O macrosomia in infant in prior , currently ([facility]) with other poor obstetric history History of pre-eclampsia Personal history of other genital system and obstetric disorders 31 weeks gestation of ([facility]) state, incidental Supervision of high risk in third trimester ([facility])- Primary Unspecified high-risk Pre-existing type 2 diabetes mellitus in in third trimester ([facility]) Diabetes mellitus of mother, complicating , childbirth, or the puerperium, unspecified as to episode of care Exposure to parvovirus Contact with or exposure to other viral diseases History of pre-eclampsia Personal history of other genital system and obstetric disorders Pre-existing type 2 diabetes mellitus in in third trimester ([facility])- Primary Diabetes mellitus of mother, complicating , childbirth, or the puerperium, unspecified as to episode of care History of pre-eclampsia Personal history of other genital system and obstetric disorders H/O macrosomia in in prior , currently ([facility]) with other poor obstetric history 33 weeks gestation of ([facility]) state, incidental Request for sterilization Herpes simplex type 2 (HSV-2) infection affecting , antepartum, unspecified trimester ([facility]) History of herpes genitalis- Primary Personal history of other infectious and parasitic disease Pre-existing type 2 diabetes mellitus in in third trimester ([facility]) Diabetes mellitus of mother, complicating , childbirth, or the puerperium, unspecified as to episode of care History of pre-eclampsia Personal history of other genital system and obstetric disorders 36 weeks gestation of ([facility]) state, incidental * Assessment & Plan Note - William Gramajo MD - 11/25/2024 10:24 AM EDTAssociated Problem(s): History of pre-eclampsia Orders: URINE OB DIP B[facility] Pre-existing type 2 diabetes mellitus in in first trimester ([facility])- Primary Diabetes mellitus of mother, complicating , childbirth, or the puerperium, unspecified as to episode of care History of pre-eclampsia Personal history of other genital system and obstetric disorders H/O macrosomia in infant in prior , currently ([facility]) with other poor obstetric history 17 weeks gestation of ([facility]) state, incidental Encounter for screening for malformation using ultrasound ([facility]) Obesity affecting in first trimester, unspecified obesity type ([facility])- Primary Herpes simplex type 2 (HSV-2) infection affecting , antepartum, unspecified trimester ([facility]) Pre-existing type 2 diabetes mellitus in in first trimester (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) 21 weeks gestation of ([facility]) state, incidental Pre-existing type 2 diabetes mellitus in in first trimester ([facility])- Primary Diabetes mellitus of mother, complicating , childbirth, or the puerperium, unspecified as to episode of care Obesity affecting in first trimester, unspecified obesity type ([facility]) History of pre-eclampsia Personal history of other genital system and obstetric disorders H/O macrosomia in infant in prior , currently ([facility]) with other poor obstetric history History of bipolar disorder Personal history of affective disorder 21 weeks gestation of ([facility]) state, incidental Encounter for anatomic survey ([facility]) Encounter for anatomic survey Supervision of high risk in third trimester ([facility])- Primary Unspecified high-risk History of pre-eclampsia Personal history of other genital system and obstetric disorders 29 weeks gestation of ([facility]) state, incidental Pre-existing type 2 diabetes mellitus in in third trimester (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) Diabetes mellitus of mother, complicating , childbirth, or the puerperium, unspecified as to episode of care Tobacco smoking complicating in first trimester (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) Herpes simplex type 2 (HSV-2) infection affecting , antepartum, unspecified trimester ([facility]) Supervision of high risk in third trimester ([facility])- Primary Unspecified high-risk Pre-existing type 2 diabetes mellitus in in third trimester ([facility]) Diabetes mellitus of mother, complicating , childbirth, or the puerperium, unspecified as to episode of care Herpes simplex type 2 (HSV-2) infection affecting , antepartum, unspecified trimester ([facility]) H/O macrosomia in infant in prior , currently ([facility]) with other poor obstetric history History of pre-eclampsia Personal history of other genital system and obstetric disorders 31 weeks gestation of ([facility]) state, incidental Supervision of high risk in third trimester ([facility])- Primary Unspecified high-risk Pre-existing type 2 diabetes mellitus in in third trimester ([facility]) Diabetes mellitus of mother, complicating , childbirth, or the puerperium, unspecified as to episode of care Exposure to parvovirus Contact with or exposure to other viral diseases History of pre-eclampsia Personal history of other genital system and obstetric disorders Pre-existing type 2 diabetes mellitus in in third trimester ([facility])- Primary Diabetes mellitus of mother, complicating , childbirth, or the puerperium, unspecified as to episode of care History of pre-eclampsia Personal history of other genital system and obstetric disorders H/O macrosomia in infant in prior , currently ([facility]) with other poor obstetric history 33 weeks gestation of ([facility]) state, incidental Request for sterilization Herpes simplex type 2 (HSV-2) infection affecting , antepartum, unspecified trimester ([facility]) History of herpes genitalis- Primary Personal history of other infectious and parasitic disease Pre-existing type 2 diabetes mellitus in in third trimester ([facility]) Diabetes mellitus of mother, complicating , childbirth, or the puerperium, unspecified as to episode of care History of pre-eclampsia Personal history of other genital system and obstetric disorders 36 weeks gestation of ([facility]) state, incidental Pre-existing type 2 diabetes mellitus in in third trimester ([facility])- Primary Diabetes mellitus of mother, complicating , childbirth, or the puerperium, unspecified as to episode of care Pre-existing type 2 diabetes mellitus in in first trimester ([facility]) Diabetes mellitus of mother, complicating , childbirth, or the puerperium, unspecified as to episode of care documented in this encounter [facility]* Diagnosis Pre-existing type 2 diabetes mellitus in in first trimester ([facility])- Primary Diabetes mellitus of mother, complicating , childbirth, or the puerperium, unspecified as to episode of care History of pre-eclampsia Personal history of other genital system and obstetric disorders H/O macrosomia in in prior , currently ([facility]) with other poor obstetric history 17 weeks gestation of ([facility]) state, incidental Encounter for screening for malformation using ultrasound ([facility]) Obesity affecting in first trimester, unspecified obesity type ([facility])- Primary Herpes simplex type 2 (HSV-2) infection affecting , antepartum, unspecified trimester ([facility]) Pre-existing type 2 diabetes mellitus in in first trimester (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) 21 weeks gestation of ([facility]) state, incidental Pre-existing type 2 diabetes mellitus in in first trimester ([facility])- Primary Diabetes mellitus of mother, complicating , childbirth, or the puerperium, unspecified as to episode of care Obesity affecting in first trimester, unspecified obesity type ([facility]) History of pre-eclampsia Personal history of other genital system and obstetric disorders H/O macrosomia in infant in prior , currently ([facility]) with other poor obstetric history History of bipolar disorder Personal history of affective disorder 21 weeks gestation of ([facility]) state, incidental Encounter for anatomic survey ([facility]) Encounter for anatomic survey Supervision of high risk in third trimester ([facility])- Primary Unspecified high-risk History of pre-eclampsia Personal history of other genital system and obstetric disorders 29 weeks gestation of ([facility]) state, incidental Pre-existing type 2 diabetes mellitus in in third trimester (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) Diabetes mellitus of mother, complicating , childbirth, or the puerperium, unspecified as to episode of care Tobacco smoking complicating in first trimester (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) Herpes simplex type 2 (HSV-2) infection affecting , antepartum, unspecified trimester ([facility]) Supervision of high risk in third trimester ([facility])- Primary Unspecified high-risk Pre-existing type 2 diabetes mellitus in in third trimester ([facility]) Diabetes mellitus of mother, complicating , childbirth, or the puerperium, unspecified as to episode of care Herpes simplex type 2 (HSV-2) infection affecting , antepartum, unspecified trimester ([facility]) H/O macrosomia in in prior , currently ([facility]) with other poor obstetric history History of pre-eclampsia Personal history of other genital system and obstetric disorders 31 weeks gestation of ([facility]) state, incidental Supervision of high risk in third trimester ([facility])- Primary Unspecified high-risk Pre-existing type 2 diabetes mellitus in in third trimester ([facility]) Diabetes mellitus of mother, complicating , childbirth, or the puerperium, unspecified as to episode of care Exposure to parvovirus Contact with or exposure to other viral diseases History of pre-eclampsia Personal history of other genital system and obstetric disorders Pre-existing type 2 diabetes mellitus in in third trimester ([facility])- Primary Diabetes mellitus of mother, complicating , childbirth, or the puerperium, unspecified as to episode of care History of pre-eclampsia Personal history of other genital system and obstetric disorders H/O macrosomia in in prior , currently ([facility]) with other poor obstetric history 33 weeks gestation of ([facility]) state, incidental Request for sterilization Herpes simplex type 2 (HSV-2) infection affecting , antepartum, unspecified trimester ([facility]) History of herpes genitalis- Primary Personal history of other infectious and parasitic disease Pre-existing type 2 diabetes mellitus in in third trimester ([facility]) Diabetes mellitus of mother, complicating , childbirth, or the puerperium, unspecified as to episode of care History of pre-eclampsia Personal history of other genital system and obstetric disorders 36 weeks gestation of ([facility]) state, incidental Pre-existing type 2 diabetes mellitus in in third trimester ([facility])- Primary Diabetes mellitus of mother, complicating , childbirth, or the puerperium, unspecified as to episode of care 37 weeks gestation of ([facility]) state, incidental Supervision of high risk in third trimester ([facility]) Unspecified high-risk documented in this encounter [facility] note* Diagnosis Pre-existing type 2 diabetes mellitus in in first trimester ([facility])- Primary Diabetes mellitus of mother, complicating , childbirth, or the puerperium, unspecified as to episode of care History of pre-eclampsia Personal history of other genital system and obstetric disorders H/O macrosomia in infant in prior , currently ([facility]) with other poor obstetric history 17 weeks gestation of ([facility]) state, incidental Encounter for screening for malformation using ultrasound ([facility]) Obesity affecting in first trimester, unspecified obesity type ([facility])- Primary Herpes simplex type 2 (HSV-2) infection affecting , antepartum, unspecified trimester ([facility]) Pre-existing type 2 diabetes mellitus in in first trimester (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) 21 weeks gestation of ([facility]) state, incidental Pre-existing type 2 diabetes mellitus in in first trimester ([facility] Primary Diabetes mellitus of mother, complicating , childbirth, or the puerperium, unspecified as to episode of care Obesity affecting in first trimester, unspecified obesity type ([facility]) History of pre-eclampsia Personal history of other genital system and obstetric disorders H/O macrosomia in in prior , currently ([facility]) with other poor obstetric history History of bipolar disorder Personal history of affective disorder 21 weeks gestation of ([facility]) state, incidental Encounter for anatomic survey ([facility]) Encounter for anatomic survey Supervision of high risk in third trimester ([facility])- Primary Unspecified high-risk History of pre-eclampsia Personal history of other genital system and obstetric disorders 29 weeks gestation of ([facility]) state, incidental Pre-existing type 2 diabetes mellitus in in third trimester (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) Diabetes mellitus of mother, complicating , childbirth, or the puerperium, unspecified as to episode of care Tobacco smoking complicating in first trimester (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) Herpes simplex type 2 (HSV-2) infection affecting , antepartum, unspecified trimester ([facility]) Supervision of high risk in third trimester ([facility])- Primary Unspecified high-risk Pre-existing type 2 diabetes mellitus in in third trimester ([facility]) Diabetes mellitus of mother, complicating , childbirth, or the puerperium, unspecified as to episode of care Herpes simplex type 2 (HSV-2) infection affecting , antepartum, unspecified trimester ([facility]) H/O macrosomia in infant in prior , currently ([facility]) with other poor obstetric history History of pre-eclampsia Personal history of other genital system and obstetric disorders 31 weeks gestation of ([facility]) state, incidental Supervision of high risk in third trimester ([facility])- Primary Unspecified high-risk Pre-existing type 2 diabetes mellitus in in third trimester ([facility]) Diabetes mellitus of mother, complicating , childbirth, or the puerperium, unspecified as to episode of care Exposure to parvovirus Contact with or exposure to other viral diseases History of pre-eclampsia Personal history of other genital system and obstetric disorders Pre-existing type 2 diabetes mellitus in in third trimester ([facility])- Primary Diabetes mellitus of mother, complicating , childbirth, or the puerperium, unspecified as to episode of care History of pre-eclampsia Personal history of other genital system and obstetric disorders H/O macrosomia in infant in prior , currently ([facility]) with other poor obstetric history 33 weeks gestation of ([facility]) state, incidental Request for sterilization Herpes simplex type 2 (HSV-2) infection affecting , antepartum, unspecified trimester ([facility]) History of herpes genitalis- Primary Personal history of other infectious and parasitic disease Pre-existing type 2 diabetes mellitus in in third trimester ([facility]) Diabetes mellitus of mother, complicating , childbirth, or the puerperium, unspecified as to episode of care History of pre-eclampsia Personal history of other genital system and obstetric disorders 36 weeks gestation of ([facility]) state, incidental Pre-existing type 2 diabetes mellitus in in first trimester ([facility])- Primary Diabetes mellitus of mother, complicating , childbirth, or the puerperium, unspecified as to episode of care 38 weeks gestation of ([facility]) state, incidental documented in this encounter [facility] note* Diagnosis Pre-existing type 2 diabetes mellitus in in first trimester ([facility])- Primary Diabetes mellitus of mother, complicating , childbirth, or the puerperium, unspecified as to episode of care History of pre-eclampsia Personal history of other genital system and obstetric disorders H/O macrosomia in infant in prior , currently ([facility]) with other poor obstetric history 17 weeks gestation of ([facility]) state, incidental Encounter for screening for malformation using ultrasound ([facility]) Obesity affecting in first trimester, unspecified obesity type ([facility])- Primary Herpes simplex type 2 (HSV-2) infection affecting , antepartum, unspecified trimester ([facility]) Pre-existing type 2 diabetes mellitus in in first trimester (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) 21 weeks gestation of ([facility]) state, incidental Pre-existing type 2 diabetes mellitus in in first trimester ([facility])- Primary Diabetes mellitus of mother, complicating , childbirth, or the puerperium, unspecified as to episode of care Obesity affecting in first trimester, unspecified obesity type ([facility]) History of pre-eclampsia Personal history of other genital system and obstetric disorders H/O macrosomia in infant in prior , currently ([facility]) with other poor obstetric history History of bipolar disorder Personal history of affective disorder 21 weeks gestation of ([facility]) state, incidental Encounter for anatomic survey ([facility]) Encounter for anatomic survey Supervision of high risk in third trimester ([facility])- Primary Unspecified high-risk History of pre-eclampsia Personal history of other genital system and obstetric disorders 29 weeks gestation of ([facility]) state, incidental Pre-existing type 2 diabetes mellitus in in third trimester (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) Diabetes mellitus of mother, complicating , childbirth, or the puerperium, unspecified as to episode of care Tobacco smoking complicating in first trimester (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) Herpes simplex type 2 (HSV-2) infection affecting , antepartum, unspecified trimester ([facility]) Supervision of high risk in third trimester ([facility])- Primary Unspecified high-risk Pre-existing type 2 diabetes mellitus in in third trimester ([facility]) Diabetes mellitus of mother, complicating , childbirth, or the puerperium, unspecified as to episode of care Herpes simplex type 2 (HSV-2) infection affecting , antepartum, unspecified trimester ([facility]) H/O macrosomia in in prior , currently ([facility]) with other poor obstetric history History of pre-eclampsia Personal history of other genital system and obstetric disorders 31 weeks gestation of ([facility]) state, incidental Supervision of high risk in third trimester ([facility])- Primary Unspecified high-risk Pre-existing type 2 diabetes mellitus in in third trimester ([facility]) Diabetes mellitus of mother, complicating , childbirth, or the puerperium, unspecified as to episode of care Exposure to parvovirus Contact with or exposure to other viral diseases History of pre-eclampsia Personal history of other genital system and obstetric disorders Pre-existing type 2 diabetes mellitus in in third trimester ([facility])- Primary Diabetes mellitus of mother, complicating , childbirth, or the puerperium, unspecified as to episode of care History of pre-eclampsia Personal history of other genital system and obstetric disorders H/O macrosomia in infant in prior , currently ([facility]) with other poor obstetric history 33 weeks gestation of ([facility]) state, incidental Request for sterilization Herpes simplex type 2 (HSV-2) infection affecting , antepartum, unspecified trimester ([facility]) History of herpes genitalis- Primary Personal history of other infectious and parasitic disease Pre-existing type 2 diabetes mellitus in in third trimester ([facility]) Diabetes mellitus of mother, complicating , childbirth, or the puerperium, unspecified as to episode of care History of pre-eclampsia Personal history of other genital system and obstetric disorders 36 weeks gestation of ([facility]) state, incidental Pre-existing type 2 diabetes mellitus in in third trimester ([facility])- Primary Diabetes mellitus of mother, complicating , childbirth, or the puerperium, unspecified as to episode of care Supervision of high risk in third trimester ([facility]) Unspecified high-risk History of pre-eclampsia Personal history of other genital system and obstetric disorders H/O macrosomia in in prior , currently (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) state, incidental [facility] Diagnosis Pre-existing type 2 diabetes mellitus in in first trimester ([facility])- Primary Diabetes mellitus of mother, complicating , childbirth, or the puerperium, unspecified as to episode of care History of pre-eclampsia Personal history of other genital system and obstetric disorders H/O macrosomia in infant in prior , currently ([facility]) with other poor obstetric history 17 weeks gestation of ([facility]) state, incidental Encounter for screening for malformation using ultrasound ([facility]) Obesity affecting in first trimester, unspecified obesity type ([facility])- Primary Herpes simplex type 2 (HSV-2) infection affecting , antepartum, unspecified trimester ([facility]) Pre-existing type 2 diabetes mellitus in in first trimester (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) 21 weeks gestation of ([facility]) state, incidental Pre-existing type 2 diabetes mellitus in in first trimester ([facility])- Primary Diabetes mellitus of mother, complicating , childbirth, or the puerperium, unspecified as to episode of care Obesity affecting in first trimester, unspecified obesity type ([facility]) History of pre-eclampsia Personal history of other genital system and obstetric disorders H/O macrosomia in infant in prior , currently ([facility]) with other poor obstetric history History of bipolar disorder Personal history of affective disorder 21 weeks gestation of ([facility]) state, incidental Encounter for anatomic survey ([facility]) Encounter for anatomic survey Supervision of high risk in third trimester ([facility])- Primary Unspecified high-risk History of pre-eclampsia Personal history of other genital system and obstetric disorders 29 weeks gestation of ([facility]) state, incidental Pre-existing type 2 diabetes mellitus in in third trimester (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) Diabetes mellitus of mother, complicating , childbirth, or the puerperium, unspecified as to episode of care Tobacco smoking complicating in first trimester (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) Herpes simplex type 2 (HSV-2) infection affecting , antepartum, unspecified trimester ([facility]) Supervision of high risk in third trimester ([facility])- Primary Unspecified high-risk Pre-existing type 2 diabetes mellitus in in third trimester ([facility]) Diabetes mellitus of mother, complicating , childbirth, or the puerperium, unspecified as to episode of care Herpes simplex type 2 (HSV-2) infection affecting , antepartum, unspecified trimester ([facility]) H/O macrosomia in in prior , currently ([facility]) with other poor obstetric history History of pre-eclampsia Personal history of other genital system and obstetric disorders 31 weeks gestation of ([facility]) state, incidental Supervision of high risk in third trimester ([facility])- Primary Unspecified high-risk Pre-existing type 2 diabetes mellitus in in third trimester ([facility]) Diabetes mellitus of mother, complicating , childbirth, or the puerperium, unspecified as to episode of care Exposure to parvovirus Contact with or exposure to other viral diseases History of pre-eclampsia Personal history of other genital system and obstetric disorders Pre-existing type 2 diabetes mellitus in in third trimester ([facility])- Primary Diabetes mellitus of mother, complicating , childbirth, or the puerperium, unspecified as to episode of care History of pre-eclampsia Personal history of other genital system and obstetric disorders H/O macrosomia in in prior , currently ([facility]) with other poor obstetric history 33 weeks gestation of ([facility]) state, incidental Request for sterilization Herpes simplex type 2 (HSV-2) infection affecting , antepartum, unspecified trimester ([facility]) History of herpes genitalis- Primary Personal history of other infectious and parasitic disease Pre-existing type 2 diabetes mellitus in in third trimester ([facility]) Diabetes mellitus of mother, complicating , childbirth, or the puerperium, unspecified as to episode of care History of pre-eclampsia Personal history of other genital system and obstetric disorders 36 weeks gestation of ([facility]) state, incidental care and examination immediately after delivery ([facility])- Primary care and examination immediately after delivery [facility] Diagnosis Pre-existing type 2 diabetes mellitus in in first trimester ([facility])- Primary Diabetes mellitus of mother, complicating , childbirth, or the puerperium, unspecified as to episode of care History of pre-eclampsia Personal history of other genital system and obstetric disorders H/O macrosomia in in prior , currently ([facility]) with other poor obstetric history 17 weeks gestation of ([facility]) state, incidental Encounter for screening for malformation using ultrasound ([facility]) Obesity affecting in first trimester, unspecified obesity type ([facility])- Primary Herpes simplex type 2 (HSV-2) infection affecting , antepartum, unspecified trimester ([facility]) Pre-existing type 2 diabetes mellitus in in first trimester (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) 21 weeks gestation of ([facility]) state, incidental Pre-existing type 2 diabetes mellitus in in first trimester ([facility])- Primary Diabetes mellitus of mother, complicating , childbirth, or the puerperium, unspecified as to episode of care Obesity affecting in first trimester, unspecified obesity type ([facility]) History of pre-eclampsia Personal history of other genital system and obstetric disorders H/O macrosomia in infant in prior , currently ([facility]) with other poor obstetric history History of bipolar disorder Personal history of affective disorder 21 weeks gestation of ([facility]) state, incidental Encounter for anatomic survey ([facility]) Encounter for anatomic survey Supervision of high risk in third trimester ([facility])- Primary Unspecified high-risk History of pre-eclampsia Personal history of other genital system and obstetric disorders 29 weeks gestation of ([facility]) state, incidental Pre-existing type 2 diabetes mellitus in in third trimester (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) Diabetes mellitus of mother, complicating , childbirth, or the puerperium, unspecified as to episode of care Tobacco smoking complicating in first trimester (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) Herpes simplex type 2 (HSV-2) infection affecting , antepartum, unspecified trimester ([facility]) Supervision of high risk in third trimester ([facility])- Primary Unspecified high-risk Pre-existing type 2 diabetes mellitus in in third trimester ([facility]) Diabetes mellitus of mother, complicating , childbirth, or the puerperium, unspecified as to episode of care Herpes simplex type 2 (HSV-2) infection affecting , antepartum, unspecified trimester ([facility]) H/O macrosomia in in prior , currently ([facility]) with other poor obstetric history History of pre-eclampsia Personal history of other genital system and obstetric disorders 31 weeks gestation of ([facility]) state[facility] incidental Supervision of high risk in third trimester ([facility])- Primary Unspecified high-risk Pre-existing type 2 diabetes mellitus in in third trimester ([facility]) Diabetes mellitus of mother, complicating , childbirth, or the puerperium, unspecified as to episode of care Exposure to parvovirus Contact with or exposure to other viral diseases History of pre-eclampsia Personal history of other genital system and obstetric disorders Pre-existing type 2 diabetes mellitus in in third trimester ([facility])- Primary Diabetes mellitus of mother, complicating , childbirth, or the puerperium, unspecified as to episode of care History of pre-eclampsia Personal history of other genital system and obstetric disorders H/O macrosomia in in prior , currently ([facility]) with other poor obstetric history 33 weeks gestation of ([facility]) state, incidental Request for sterilization Herpes simplex type 2 (HSV-2) infection affecting , antepartum, unspecified trimester ([facility]) History of herpes genitalis- Primary Personal history of other infectious and parasitic disease Pre-existing type 2 diabetes mellitus in in third trimester ([facility]) Diabetes mellitus of mother, complicating , childbirth, or the puerperium, unspecified as to episode of care History of pre-eclampsia Personal history of other genital system and obstetric disorders 36 weeks gestation of ([facility]) state, incidental care and examination ([facility])- Primary Routine follow-up Request for sterilization Pre-op exam Preoperative examination, unspecified documented in this encounter [facility]* Diagnosis Pre-existing type 2 diabetes mellitus in in first trimester ([facility])- Primary Diabetes mellitus of mother, complicating , childbirth, or the puerperium, unspecified as to episode of care History of pre-eclampsia Personal history of other genital system and obstetric disorders H/O macrosomia in in prior , currently ([facility]) with other poor obstetric history 17 weeks gestation of ([facility]) state, incidental Encounter for screening for malformation using ultrasound ([facility]) Obesity affecting in first trimester, unspecified obesity type ([facility])- Primary Herpes simplex type 2 (HSV-2) infection affecting , antepartum, unspecified trimester ([facility]) Pre-existing type 2 diabetes mellitus in in first trimester (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) 21 weeks gestation of ([facility]) state, incidental Pre-existing type 2 diabetes mellitus in in first trimester ([facility])- Primary Diabetes mellitus of mother, complicating , childbirth, or the puerperium, unspecified as to episode of care Obesity affecting in first trimester, unspecified obesity type ([facility]) History of pre-eclampsia Personal history of other genital system and obstetric disorders H/O macrosomia in in prior , currently ([facility]) with other poor obstetric history History of bipolar disorder Personal history of affective disorder 21 weeks gestation of ([facility]) state, incidental Encounter for anatomic survey ([facility]) Encounter for anatomic survey Supervision of high risk in third trimester ([facility])- Primary Unspecified high-risk History of pre-eclampsia Personal history of other genital system and obstetric disorders 29 weeks gestation of ([facility]) state, incidental Pre-existing type 2 diabetes mellitus in in third trimester (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) Diabetes mellitus of mother, complicating , childbirth, or the puerperium, unspecified as to episode of care Tobacco smoking complicating in first trimester (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) Herpes simplex type 2 (HSV-2) infection affecting , antepartum, unspecified trimester ([facility]) Supervision of high risk in third trimester ([facility])- Primary Unspecified high-risk Pre-existing type 2 diabetes mellitus in in third trimester ([facility]) Diabetes mellitus of mother, complicating , childbirth, or the puerperium, unspecified as to episode of care Herpes simplex type 2 (HSV-2) infection affecting , antepartum, unspecified trimester ([facility]) H/O macrosomia in in prior , currently ([facility]) with other poor obstetric history History of pre-eclampsia Personal history of other genital system and obstetric disorders 31 weeks gestation of ([facility]) state, incidental Supervision of high risk in third trimester ([facility])- Primary Unspecified high-risk Pre-existing type 2 diabetes mellitus in in third trimester ([facility]) Diabetes mellitus of mother, complicating , childbirth, or the puerperium, unspecified as to episode of care Exposure to parvovirus Contact with or exposure to other viral diseases History of pre-eclampsia Personal history of other genital system and obstetric disorders Pre-existing type 2 diabetes mellitus in in third trimester ([facility])- Primary Diabetes mellitus of mother, complicating , childbirth, or the puerperium, unspecified as to episode of care History of pre-eclampsia Personal history of other genital system and obstetric disorders H/O macrosomia in infant in prior , currently ([facility]) with other poor obstetric history 33 weeks gestation of ([facility]) state, incidental Request for sterilization Herpes simplex type 2 (HSV-2) infection affecting , antepartum, unspecified trimester ([facility]) History of herpes genitalis- Primary Personal history of other infectious and parasitic disease Pre-existing type 2 diabetes mellitus in in third trimester (HCC) Diabetes mellitus of mother, complicating , childbirth, or the puerperium, unspecified as to episode of care History of pre-eclampsia Personal history of other genital system and obstetric disorders 36 weeks gestation of (HCC) state, incidental 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, 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, 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 oil heaterman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 (HCC)- Primary documented in this encounter [facility] Author Mariajose Nickerson [facility] Note Date/Time October 16, 2024 8:00p m [facility] Medical Records Department [address] [place] [address] OB Triage Physician Note 10/16/248 MR#: [id number] Acct: [id number] Name: MELISSA BYRNE Rep #:[id number] : 1995 29 From: Mariajose Nickerson [facility] PCP: Dr. Jamari Byrne MD Status:REG CLI Y Location: [id number] HPI - General HPI Narrative MELISSA BYRNE, is a 29 F at 31 weeks gestation who presents with lower abdominal pain and tightening. Denies any loss of fluid or vaginal bleeding. Maternal Data Information ADA Calculator Estimated Delivery Date Method Current WG Current Estimate 12/18/24 Manual 31w 0d PFSH [facility] Medical History Seizures Asthma Osteoarthritis Diabetes Home [...] Nickerson; Dr. Jamari Byrne MD ~ Signed [facility] Work Phone: History and physical note Author Mariajose Nickerson [facility] Note Date/Time December 16, 2024 8:47 pm [facility] Medical Records Department [address] [place] [address] OB Triage Physician Note 12/16/242022 MR#: [id number] Acct: [id number] Name: MELISSA BYRNE Rep #:[id number] : 1995 29 From: Mariajose Nickerson CNM PCP: Dr. Jamari Byrne MD Status:REG CLI Y Location: [place] [id number] HPI - General HPI Narrative MELISSA BYRNE, is a 29 F who is 10 days post that presents to triage with headache, swelling, nausea and vomiting and to r/o pre e. Maternal Data Information ADA Calculator Estimated Delivery Date Method Current WG Current Estimate 12/18/24 Manual 39w 5d PFSH PFSH Medical History (Updated 12/16/24 @ 20:43 by Mariajose Nickerson CNM) Seizures Asthma Osteoarthritis Diabetes Home Medications ?Medication ?Instructions ?Recorded ?Last Taken ?Type buspirone 15 mg tablet 15 mg PO QDAY anxiety 12/16/24 History HumuLIN N NPH Insulin KwikPen 90 units subcut QHS type II 10/16/24 12/15/24 History diabetes albuterol sulfate 90 mcg/actuation 1 - 2 puff inhalati on PRN PRN 11/15/24 11/01/24 15:57 History aerosol inhaler shortness of breath or wheez ing fluoxetine 20 mg capsule 20 mg PO DAILY anxiety 11/1512/16/24 History insulin lispro 100 unit/mL 8 unit subcut TID 12/16/24 Unknown History subcutaneous pen (Humalog KwikPen (U-100) Insulin) Allergy/AdvReac Type Severity Reaction Status Date / Time aripiprazole (From Abilify) AdvReac Other Verified 12/16/24 20:13 metoclopramide (From Reglan) AdvReac Other Verified 12/16/24 20:13 ondansetron (From Zofran) AdvReac Vomiting Verified 12/16/24 20:13 quetiapine (From Seroquel) AdvReac Other Verified 12/16/24 20:13 sertraline (From Zoloft) AdvReac Other Verified 12/16/24 20:13 Family History Other Heart disease Hyperlipemia Surgical History (Updated 12/16/24 @ 20:28 by Mariajose Nikcerson CNM) History of dilation and curettage History of oral surgery History of cholecystectomy Social History Smoking Status: Current every day smoker tobacco type: cigarettes alcohol intake: never substance use type: does not use History Elective abortions Hx Para 1 Spontaneous abortions Hx # Term Pregnancies Ectopic pregnancies Hx # Pregnancies Multiple births # of living children ROS Eyes Eyes: Denies blurry vision Cardiovascular Cardiovascular: Reports none; Denies chest pain at rest, chest pain with activity or dizziness Respiratory/Chest Respiratory/Chest: Denies cough or dyspnea Gastrointestinal Gastrointestinal: Reports none and other; Denies diarrhea or vomiting Genitourinary Genitourinary: Denies dysuria Musculoskeletal Musculoskeletal: Reports none Integumentary Integumentary: Reports none; Denies rash Neurologic Neurologic: Denies other visual disturbances Physical Exam Const alert and no apparent distress General Appearance: cooperative Orientation / Consciousness: awake Exam Limitations: no limitations HEENT normocephalic Eyes General Eye: normal appearance of both eyes Neck full ROM Chest inspection of chest normal Resp normal respiratory effort and normal air movement Effort and Inspection: symmetric chest movement Auscultation: clear to auscultation bilaterally Cardio regular rate GI soft to palpation, non-tender and non-distended Inspection: and other Back/Spine normal ROM Extremity full ROM, normal capillary refill and no calf tenderness Skin no rashes or lesions noted Neuro oriented x3 and CN's II-XII intact bilaterally Psych mental status grossly normal Assessment & Plan (1) Bipolar 1 disorder: (2) Asthma: (3) Headache: (4) Status post vaginal delivery: (5) Type 2 diabetes mellitus: (6) Nausea & vomiting: PLAN: Plan Blood pressures 106-118/60-70's Denies current headache No N/V today Thinks she just has not eaten enough today PIH labs normal Increase hydration- dinner offered to patient D/C home with follow up in office for PP visit 12/16/242046 <Electronically signed by Mariajose kwon CNM> Date _ Mariajose Nickerson CNM Cosigner Signature (if applicable): Date CC: JULIO Nickerson; Dr. Jamari Byrne MD ~ Signed [facility] Work Phone: History of Present illness Narrative* Patient is here today for psych hospital follow up * Patient states that she has been under more stress lately, she apparently was talking to multiple different guys, quit all of her medications for a month, she bough kits on [employer] to tatoo herself. She had been at counseling and she had told her counselor that she was thinking about hurting herself. Sister thought she was more on the manic end of the spectrum. She was just discharged on Friday.she will see her counselor tomorrow and she has an upcoming appt with the psychiatrist on November 07. * She was admitted to [facility] for 5 days. She is currently on Prozac 40mg po daily * She had stopped taking her diabetes meds also. She is back on the metformin 1000mg po daily. She was needing short acting insulin in the hospital. * Pt gve her glucometer to her dad so has not been able to check her blood sugars. [facility] Work Phone: History of Present illness NarrativePatient is a 26-year-old who comes in for test of cure for chlamydia and trichomoniasis. Patient reports that she did take the medication Flagyl and the powdered Zithromax. She has also informed her sexual partners. [facility] Work Phone: Hospital Discharge instructions* Attachments The following attachments cannot be sent through Care Everywhere. * Urinary tract infections in (Norwegian) * Genital Herpes Discharge Instructions (Norwegian) [facility] Work Phone: Hospital Discharge instructions* Attachments The following attachments cannot be sent through Care Everywhere. * Flu Discharge Instructions, Adult (Norwegian) documented in [facility] Work Phone: Hospital Discharge instructions Additional Instructions keep appointment on [facility] Work Phone: Hospital Discharge instructionsAdditional Instructions Date of Discharge: 12/09/24[facility] Work Phone: Hospital Discharge instructionsAdditional Instructions Keep follow up appointment with Dr Gramajo next Friday. Return to the hospital for any worsening symptoms.[facility] Work Phone: Reason for referral (narrative)* Consultation (Routine) - Authorized Specialty Diagnoses / Procedures Referred By Shell lucia Referred To Contact Dermatology Diagnoses Necrobiosis lipoidica Jamari Byrne MD [address] [facility], [address] [address] Radha Patel MD [address] [facility] [place] [address] Referral ID Status Reason Start Date Expiration Date Visits Requested Visits Authorized [id number] Authorized Specialty Services Required 12/25/2023 12/24/[address] [facility] Work Phone: Relqxj for referral (narrative)* Outpatient Procedure (Routine) - New Request Specialty Diagnoses / Procedures Referred By Shell lucia Referred To Contact [facility] Diagnoses Pre-existing type 2 diabetes mellitus in in first trimester [place] [address] [place] [address] [place] [phone] Referral ID Status Reason Start Date Expiration Date Visits Requested Visits Authorized [id number] New Request Auto-Generat ed Referral 06/15/2024 06/15/2025 1 1 [facility] for referral (narrative)* Diagnostic Procedure Only (Routine) - Authorized Specialty Diagnoses / Procedures Referred By Shell t Referred To Contact [facility] Diagnoses Encounter for anatomic survey Procedures OBSTETRIC ULTRASOUND WHI US PREG UTERUS AFTER 1ST TRIMEST GESTATION William Gramajo MD [address] [place] [address] [place] [phone] Referral ID Status Reason Start Date Expiration Date Visits Requested Visits Authorized [id number] Authorized Auto-Generat ed Referral 07/13/2024 07/13/2025 1 1 [facility] for referral (narrative)No reason for referral information availableWProMedica [facility] Work Phone: Reason for visit Narrative* Transition of Care (Routine) - Closed Specialty Diagnoses / Procedures Referred By Sehll t Referred To Contact Diagnoses complication before (HCC) Procedures MPOWER CONSULT William Gramajo MD [address] [place] [address] Phone: tel: fax: Referral ID Status Reason Start Date Expiration Date V isits Requested Visits Authorized [id number] Closed PCP Requested Referral 09/13/2024 09/13/2025 1 1 [facility] for visit Narrative* Diagnostic Procedure Only (Routine) - Closed Specialty Diagnoses / Procedures Referred By Contac t Referred To Contact [facility] Diagnoses Supervision of high risk in third trimester (HCC) Pre-existing type 2 diabetes mellitus in in first trimester (HCC) Procedures BIOPHYSICAL PROFILE US [facility] BIOPHYSICAL PROFILE NON-STRESS TESTING Piper Julian MD [address] [place] [address] Phone: tel: fax: [facility] [address] [place] [address] Referral ID Status Reason Start Date Expiration Date V isits Requested Visits Authorized [id number] Closed Auto-Generate d Referral 10/05/2024 10/05/2025 10 1 [facility] Summary Purpose Family History Grandparent Name Dates Details Family history of [...] Cardiac disease Unknown Hyperlipidemia Unknown Advance Directives Documents on File Type Date Recorded Patient Manager Fixed Income Expl anation Advance Directives and Livin g Will 02/10/2019 5:53 PM Documents on File Type Date Recorded Patient Manager Fixed Income Expl anation Advance Directives and Livin g Will 03/21/2019 11:25 PM Documents on File Type Date Recorded Patient Manager Fixed Income Expl anation Advance Directives and Livin g Will 03/21/2019 11:25 PM Documents on File Type Date Recorded Patient Manager Fixed Income Expl anation Advance Directives and Livin g Will 07/19/2020 11:25 PM Documents on File Type Date Recorded Patient Manager Fixed Income Expl anation Advance Directives and Livin g Will 07/19/2020 11:25 PM Documents on File Type Date Recorded Patient Manager Fixed Income Expl anation Advance Directives and Livin g Will 03/11/2019 11:43 AM Advance Directive Response Recorded Date/ Time Do you have a Healthcare Power of Head Still Operator? No December 07, 2024 1:05pm Discharge Instructions * Attachments The following attachments cannot be sent through Care Everywhere. * Abdominal Pain, Adult (Norwegian) * Diabetes with High Blood Sugar (Norwegian) documented in this encounter* Instructions* Camilo June PA-C - 02/10/2019 CONTACT YOUR PSYCHIATRIST'S OFFICE IN [place] TOMORROW MORNING TO INFORM THE STAFF OF YOUR EVALUATION IN THE EMERGENCY DEPARTMENT AND NEED FOR AN APPOINTMENT. * Attachments The following attachments cannot be sent through Care Everywhere. * Mood Disorders: General Info (Norwegian) documented in this encounter* Instructions* Claude Peralta MD - 03/21/2019 If symptoms do not improve consult with your doctor Return to ER as needed documented in this encounter* Attachments The following attachments cannot be sent through Care Everywhere. * URI (Upper Respiratory Infection) (Norwegian) * Hyperglycemia: General Info (Norwegian) documented in this encounter* Attachments The following attachments cannot be sent through Care Everywhere. * Anxiety Disorder (Norwegian) documented in this encounter* Instructions* Hailey Paiz CNP - 10/05/2018 Follow-up with your PCP in the next 1 to 2 days for further evaluation of your diabetes. * Attachments The following attachments cannot be sent through Care Everywhere. * Diabetes: Sick Care (Norwegian) * Glycemic Index: General Info (Norwegian) * Diabetes: Type 2: General Info (Norwegian) * Diabetes: Heart Disease: General Info (Norwegian) * Hyperglycemia: General Info (Norwegian) documented in this encounter Assessments Diagnosis Lower [...] PSG SEIZURE MONTAGE Maty Chavez MD [address] [place] [address] [place] [phone] Status Reason Specialty Diagnoses / Procedures Referred By Contact Referred To Contact Pending Review Specialty Services Required/Patien t's Best Interest Neurology Diagnoses Seizure (HCC) Procedures EEG (Standard) Srini Medina MD [address] [facility] [place] [address] Eeg Neuro[facility] [address] [place] [phone] Status Reason Specialty Diagnoses / Procedures Referred By Contact Referred To Contact Authorized Sleep Medicine Diagnoses Seizure (HCC) Srini Medina MD [address] [address] [place] [phone] Maty Chavez MD [address] [place] [address] Specialty Diagnoses / Procedures Referred By Contac t Referred To Contact Diagnoses Insulin controlled gestational diabetes mellitus (GDM) in first trimester Procedures ENDOCRINOLOGY DIETITIAN VISIT (MNT) MEDICAL NUTRITION ASSMT&IVNTJ INDIV EACH 15 PR MEDICAL NUTRITION ASSMT&IVNTJ INDIV EACH 15 PR MEDICAL NUTRITION ASSMT&IVNTJ INDIV EACH 15 PR MEDICAL NUTRITION ASSMT&IVNTJ INDIV EACH 15 PR Kelsy Guillermo, DO [address] [place] [address] Referral ID Status Reason Start Date Expiration Date Visits Requested Visits Authorized [id number] Authorized PCP Requested Referral 4 05/03/2025 1 1 Specialty Diagnoses / Procedures Referred By Contac t Referred To Contact Diagnoses Encounter for supervision of high risk in first trimester, antepartum H/O macrosomia in infant in prior , currently Pre-existing type 2 diabetes mellitus in in first trimester History of pre-eclampsia Procedures CONSULT TO MATERNAL MEDI OFFICE/OUTPATIENT NEW HIGH MDM 60 MINUTES Zayda Parker APRN.[employer] [address] [place] [address] Referral ID Status Reason Start Date Expiration Date Visits Requested Visits Authorized [id number] Authorized PCP Requested Referral Auto-Generate d Referral 4 05/07/2025 1 1 Specialty Diagnoses / Procedures Referred By Contac t Referred To Contact [facility] Diagnoses with uncertain dates in first trimester Procedures NUCHAL TRANSLUCENCY WHI US NUCHAL TRANSLUCENCY 1ST GESTATION Zayda Parker APRN.[employer] [address] [place] [address] [facility] [address] [place] [address] Referral ID Status Reason Start Date Expiration Date Visits Requested Visits Authorized [id number] Authorized Auto-Generat ed Referral 4 05/07/2025 1 1 Specialty Diagnoses / Procedures Referred By Contac t Referred To Contact [facility] Diagnoses with uncertain dates in first trimester Procedures OBSTETRIC ULTRASOUND WHI US PREG UTERUS AFTER 1ST TRIMEST GESTATION Zayda [place] APRN.COOK HELPER MEAT [address] [place] [address] [facility] [address] [place] [address] Referral ID Status Reason Start Date Expiration Date Visits Requested Visits Authorized [id number] New Request Auto-Generat ed Referral 4 05/07/2025 [...] or abnormal muscle tone. Coordination: Coordination normal. Fejnev-Ghki-Hdoiog Test normal. Gait: Gait is intact. Gait [...] time. Impression/diagnosis, plans were explained and discussed. [place] seizure precautions. Avoid triggers and precipitating factors. [...] for follow-up visit in 2 months. Muna villalpando: Portions of this chart was created using Dyn voice recognition software. Occasional wrong-word or sound-like [...] last pap was 3-4 years ago in [place] that the patient states was normal. She has no concerns. She does not do a self breast exam. LMP:11/13/2021atient is here for Test of Cure. Patient [...] R/O LABOR November 15, 2024 3:32p m Chief Complaint Admit Date ABD PAIN September 24, 2024 1:4 8pm RULE OUT LABOR October 16, 2024 5:10p m R/O LABOR November 15, 2024 3:32p m VAG December 07, 2024 11:00 am Reason for Visit Admit Date 27 weeks gestation of September 242024 1:48pm Uterine irritability September 24, 2024 1: 48pm Asthma October 16, 2024 5:10p m Bipolar 1 disorder October 16, 2024 5:10p m History of herpes genitalis October 16 5:10pm Obesity affecting October 16 5:10pm Type 2 diabetes mellitus affecting pregn ciaran, antepartum October 16, 2024 5:10pm 31 weeks gestation of October 5:10pm Obesity affecting November 15 3:32pm 35 weeks gestation of November 3:32pm False labor November 15, 2024 3:32p m 38 weeks gestation of December 11:00am Asthma December 07, 2024 11:00 am Bipolar 1 disorder December 07, 2024 11:00 am Care and examination of lactating mother December 07, 2024 11:00am Diabetes December 07, 2024 11:00 am History of herpes genitalis December 07 11:00am Obesity affecting December 07 11:00am (spontaneous vaginal delivery) December 07, 2024 11:00am Type 2 diabetes mellitus affecting pregn ciaran, antepartum December 07, 2024 11:00am Chief Complaint Admit Date ABD PAIN September 24, 2024 1:4 8pm RULE OUT LABOR October 16, 2024 5:10p m R/O LABOR November 15, 2024 3:32p m VAG December 07, 2024 11:00 am POST PRE E December 16, 2024 7:10 pm Reason for Visit Admit Date 27 weeks gestation of September 242024 1:48pm Uterine irritability September 24, 2024 1: 48pm Asthma October 16, 2024 5:10p m Bipolar 1 disorder October 16, 2024 5:10p m History of herpes genitalis October 16 5:10pm Obesity affecting October 16 5:10pm Type 2 diabetes mellitus affecting pregn ciaran, antepartum October 16, 2024 5:10pm 31 weeks gestation of October 5:10pm Obesity affecting November 15 3:32pm 35 weeks gestation of November 3:32pm False labor November 15, 2024 3:32p m 38 weeks gestation of December 11:00am Asthma December 07, 2024 11:00 am Bipolar 1 disorder December 07, 2024 11:00 am Care and examination of lactating mother December 07, 2024 11:00am Diabetes December 07, 2024 11:00 am History of herpes genitalis December 07 11:00am Obesity affecting December 07 11:00am (spontaneous vaginal delivery) December 07, 2024 11:00am Type 2 diabetes mellitus affecting pregn ciaran, antepartum December 07, 2024 11:00am Asthma December 16, 2024 7:10 pm Bipolar 1 disorder December 16, 2024 7:10 pm Headache December 16, 2024 7:10 pm Nausea & vomiting December 16, 2024 7:10 pm Status post vaginal delivery December 16, 2024 7:10pm Type 2 diabetes mellitus December 16, 2024 7:10pm Additional Source Comments INFORMATION SOURCE (unrecogn ized section and content) DATE CREATED AUTHOR 12/02/2017 [facility] DATE CREATED AUTHOR AUTHOR'S ORGANIZ ATION 12/17/2017 [facility] DATE CREATED AUTHOR AUTHOR'S ORGANIZ ATION [facility]/24/2018 [facility] DATE CREATED AUTHOR AUTHOR'S ORGANIZ ATION 05/18/2018 [facility] DATE CREATED AUTHOR AUTHOR'S ORGANIZ ATION 07/29/2018 [facility] DATE CREATED AUTHOR AUTHOR'S ORGANIZ ATION 01/02/2019 [facility] DATE CREATED AUTHOR AUTHOR'S ORGANIZ ATION 03/11/2019 [facility] DATE CREATED AUTHOR AUTHOR'S ORGANIZ ATION 03/18/2020 [facility] DATE CREATED AUTHOR AUTHOR'S ORGANIZ ATION 07/05/2020 [facility] DATE CREATED AUTHOR AUTHOR'S ORGANIZ ATION 07/20/2020 [facility] DATE CREATED AUTHOR AUTHOR'S ORGANIZ ATION 08/05/2021 [facility] DATE CREATED AUTHOR AUTHOR'S ORGANIZ ATION 10/28/2021 [facility] DATE CREATED AUTHOR AUTHOR'S ORGANIZ ATION 05/31/2022 [facility] DATE CREATED AUTHOR AUTHOR'S ORGANIZ ATION 08/18/2022 [facility] DATE CREATED AUTHOR AUTHOR'S ORGANIZ ATION 11/28/2022 [facility] DATE CREATED AUTHOR AUTHOR'S ORGANIZ ATION 12/04/2022 [facility] DATE CREATED AUTHOR AUTHOR'S ORGANIZ ATION 04/19/2024 [facility] DATE CREATED AUTHOR AUTHOR'S ORGANIZ ATION 04/26/2024 [facility] DATE CREATED AUTHOR AUTHOR'S ORGANIZ ATION 09/07/2024 [facility] DATE CREATED AUTHOR AUTHOR'S ORGANIZ ATION 10/15/2024 [facility] DATE CREATED AUTHOR AUTHOR'S ORGANIZ ATION 11/07/2024 [facility] DATE CREATED AUTHOR AUTHOR'S ORGANIZ ATION 12/25/2024 [facility] DATE CREATED AUTHOR AUTHOR'S ORGANIZ ATION 01/10/2025 [facility] DATE CREATED AUTHOR AUTHOR'S ORGANIZ ATION 01/20/2025 [facility] Reason for Visit (unrecogniz ed section and content) Reason Comments Abdominal Pain lower abs pain x 7 d ays, nausea no vomitting. Reason Comments Suicidal Reason Comments Nausea Abdominal Pain lower abdomen Status Reason Specialty Diagnoses / Procedures Referred By Contact Referred To Contact Closed Sleep Medicine Diagnoses MG (obstructive sleep apnea) MG Procedures PSG SEIZURE MONTAGE Maty Chavez MD [address] [place] [address] Sleep Medicine [address] [place] [address] Status Reason Specialty Diagnoses / Procedures Referred By Contact Referred To Contact Pending Review Specialty Services Required/Patien t's Best Interest Neurology Diagnoses Seizure (HCC) Procedures EEG (Standard) Srini Medina MD [address] [facility] dooub [address] [address] Eeg Neurodiag [address] [place] [address] Reason Comments Shortness of Breath has been [...] Diagnoses Seizure (HCC) Rich Ng, DO [address] [place] [address] Srini Medina MD [address] [facility] [address] [place] [id number] Reason Comments Mental Health Problem Reason Comments Shortness of Breath Nausea Palpitations Reason Comments Vaginitis Itching, some burnin g, white discharge sometimes yellow, denies urine frequency or urgency, would like to do a STI screening also Reason Comments 3 month Specialty Diagnoses / Procedures Referred By Shell t Referred To Contact Primary Care Procedures Follow Up In Primary Care Jamari Byrne MD [address] [facility], [place] [address] [place] [address] Referral ID Status Reason Start Date Expiration Date V isits Requested Visits Authorized [id number] Authorized 09/09/2022 03/08/2023 1 1 Reason Comments [...] Referred By Shell t Referred To Contact Endocrinology Diagnoses Insulin controlled gestational diabetes mellitus (GDM) in first trimester Procedures CONSULT TO ENDOCRINOLOGY OFFICE/OUTPATIENT [facility] 60 MINUTES William Gramajo MD [address] [place] [address] Referral ID Status Reason Start Date Expiration Date V isits Requested Visits Authorized [id number] Closed PCP Requested Referral 04/20/2024 04/20/2025 1 [...] Referred By Shell lucia Referred To Contact [facility] Diagnoses with uncertain dates in first trimester Procedures NUCHAL TRANSLUCENCY WHI US NUCHAL TRANSLUCENCY 1ST GESTATION Zayda [place] APRN.COOK HELPER MEAT [address] [place] [address] [facility] [address] [place] [address] Referral ID Status Reason Start Date Expiration Date V isits Requested Visits Authorized [id number] Closed Auto-Generat ed Referral Patient Cleared - Admin/Chairm an/Director advise to proceed or did not respond 06/15/2024 06/08/2025 1 1 Reason Comments Nuchal/Consult to MFM Specialty Diagnoses / Procedures Referred By Shell lucia Referred To Contact MATERNAL MEDICINE Diagnoses Encounter for supervision of high risk in first trimester, antepartum H/O macrosomia in in prior , currently Pre-existing type 2 diabetes mellitus in in first trimester History of pre-eclampsia Procedures CONSULT TO MATERNAL MEDI OFFICE/OUTPATIENT NEW HIGH MDM 60 MINUTES OFFICE/OUTPATIENT ESTABLISHED HIGH MDM 40 MIN Zayda [place] APRN.COOK HELPER MEAT [address] [place] [address] Research Psychologist [facility] [employer] [address] [place] [address] Referral ID Status Reason Start Date Expiration Date Visits Requested Visits Authorized [id number] Authorized PCP Requested Referral Auto-Generate d Referral 06/09/2024 06/08/2025 99 99 Reason Comments Medical Nutrition Therapy Reason Comments OB Cramping Reason Comments Cough C/o cough and vomiti ng since yesterday. Also c/o fever. States she is approx 15 wks preg. Reason Comments OB Influenza Specialty Diagnoses / Procedures Referred By Shell lucia Referred To Contact [facility] Diagnoses with uncertain dates in first trimester Encounter for supervision of normal , unspecified, unspecified trimester Procedures OBSTETRIC ULTRASOUND WHI US PREG UTERUS AFTER 1ST TRIMEST GESTATION Zayda [place] APRN.COOK HELPER MEAT [address] [place] [address] [address] Referral ID Status Reason Start Date Expiration Date Visits Requested Visits Authorized [id number] Authorized Auto-Generat ed Referral 06/29/2024 06/08/2025 20 20 Reason Onset Date Comments Care 07/13/2024 Reason Comments Refill Request Reason Comments Vaginal Problem Reason Comments Follow Up Gestational Diabetes Specialty Diagnoses / Procedures Referred By Contac t Referred To Contact [facility] Diagnoses Encounter for anatomic survey Procedures OBSTETRIC ULTRASOUND WHI US PREG UTERUS AFTER 1ST TRIMEST GESTATION William Gramajo MD [address] [place] [address] Phone: tel: fax:[phone] [address] Referral ID Status Reason Start Date Expiration Date V isits Requested Visits Authorized [id number] Closed Auto-Generate d Referral 07/13/2024 07/13/2025 1 1 Reason Onset Date Comments Care 08/10/2024 Reason Comments returning your call Reason Comments Patient Request Reason Comments Patient Question Specialty Diagnoses / Procedures Referred By Contac t Referred To Contact [facility] Diagnoses Obesity affecting in first trimester, unspecified obesity type (HCC) Pre-existing type 2 diabetes mellitus in in first trimester (HCC) Procedures OBSTETRIC ULTRASOUND WHI US PREG UTERUS AFTER 1ST TRIMEST GESTATION William Gramajo MD [address] [place] [address] Phone: tel: fax: [facility] [address] [place] [address] Referral ID Status Reason Start Date Expiration Date V isits Requested Visits Authorized [id number] Closed Auto-Generate d Referral 08/10/2024 08/10/2025 4 [...] 10/25/2024 Specialty Diagnoses / Procedures Referred By Contac t Referred To Contact [facility] Diagnoses History of pre-eclampsia 29 weeks gestation of ([facility]) Pre-existing type 2 diabetes mellitus in in third trimester ([facility]) Supervision of high risk in third trimester ([facility]) Procedures ECG COMPLETE ECG ROUTINE ECG W/LEAST 12 LDS W/I&R Piper Julian MD [address] [place] [address] Phone: tel: fax: [facility] [address] [place] [address] Referral ID Status Reason Start Date Expiration Date V isits Requested Visits Authorized [id number] Closed Auto-Generate d Referral 10/04/2024 10/04/2025 1 1 Reason Onset Date Comments Care 11/02/2024 Reason Comments Breast Pump Reason Onset Date Comments Care 11/05/2024 Specialty Diagnoses / Procedures Referred By Shell t Referred To Contact [facility] Diagnoses Supervision of high risk in third trimester ([facility]) Pre-existing type 2 diabetes mellitus in in first trimester ([facility]) Procedures BIOPHYSICAL PROFILE US [facility] BIOPHYSICAL PROFILE NON-STRESS TESTING [place] Julian MD [address] [place] [address] Phone: tel: fax: [facility] [address] [place] [address] Referral ID Status Reason Start Date Expiration Date V isits Requested Visits Authorized [id number] Closed Auto-Generate d Referral 10/05/2024 10/05/2025 10 1 Reason Onset Date Comments Care 11/11/2024 Reason Onset Date Comments Care 11/15/2024 Reason Onset Date Comments Care 11/18/2024 Reason Onset Date Comments Care 11/25/2024 Reason Onset Date Comments Care 12/02/2024 Reason Onset Date Comments Care 12/06/2024 Reason Comments Ob Delivery Note Reason Comments Care Reason Comments Follow Up Insulin Dependent Diabetes Mellitus SophieMonique tineo, LIMOUSINE RENTAL CLERK - 02/10/2019 7:23 PM FerMoniqeu French, LIMOUSINE RENTAL CLERK - 03/11/2019 1:52 PM EDT Consult Notes (unrecognized section and content) ED Offset Press Operator Apprentice Behavioral Health Initial Assessment Date: 02/10/2019 Time: 7:24 PM Patient Name: Melissa Kaur Date of : 1995 Sex: Female Admit Date/Time: 02/10/2019 5:04 PM GENERAL INFORMATION General Information Glass Polisher Needs: Not needed Information Provided By: Patient, Patient Support System: Current Living Arrangements: Lives with and 2 elderly friends Type of Residence: Private residence Name and Contact of Collateral Provider: Jorge () [phone] LEGAL STATUS Voluntary DIAGNOSIS/ACTIVE PROBLEM LIST Hospital [...] Previous Psychiatric Medications: Anti-depressants Previous Psychiatric Hospitalizations: [facility] December 2018 Current Psychiatric Medications: Prozac ALCOHOL/DRUG [...] Conflict Resolution (Coping Skills): Yes Cultural and Temple Beliefs: Yes Access to Weapons: No TREATMENT [...] Jones, updated. documented in this encounter ED Offset Press Operator Apprentice Behavioral Health Initial Assessment Date: 03/11/2019 Time: 3:21 PM Patient Name: Melissa Kaur Date of : 1995 Sex: Female Admit Date/Time: 03/11/2019 10:50 AM GENERAL INFORMATION General Information Glass Polisher Needs: Not needed Information Provided By: Patient Patient Support System: Current Living Arrangements: Lives with and elderly friends Type of Residence: Private residence Name and Contact of Collateral Provider: Mahendra (Spouse) [phone] LEGAL STATUS Voluntary DIAGNOSIS/ACTIVE PROBLEM LIST Hospital [...] she will be attending. Pt follows at [facility] counseling every 2 weeks. Pt sees a counselor and psychiatrist. Pt is prescribed Risperdal and takes it as prescribed. Pt reports she has been hospitalized at [facility] int he past. 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 Pt is currently unemployed. PAST PSYCHIATRIC HISTORY Past Psychiatric History Previous Psychiatric Diagnosis: Depression, Pt states schizophrenia Previous Psychiatric Medications: Anti-depressants Previous Psychiatric Hospitalizations: [facility] Current Psychiatric Medications: Risperdal ALCOHOL/DRUG ABUSE HISTORY [...] Conflict Resolution (Coping Skills): Yes Cultural and Temple Beliefs: Yes Access to Weapons: No TREATMENT RECOMMENDATIONS AND CLINICAL SUMMARY Treatment Recommendations and Clinical Summary Current Recommendations: Referral for outpatient counseling RATIONALE/PLAN FOR TREATMENT: Spoke to DAYAMI Camacho, about Pt not wanting to stay at the hospital. Gisselle states she does not feel she can completed an involuntary admission on the Pt and will discharge her. Did call [facility] with Pt's permission to see if they could get her an earlier appointment which they could not. Pt again states she will not stay at the hospital and wants to return home. documented in this encounter Clinton Meza - 02/10/2019 6:36 PM Clinton Pop - 02/10/2019 6:29 PM EDTBClinton smith - 02/10/2019 6:27 PM EDTBClinton smith - 02/10/2019 5:45 PM EDTBClinton smith - 02/10/2019 5:43 PM EDT ED Notes (unrecognized secti on and content) Offset Press Operator Apprentice in room thirty one Patient in bathroom at this time Bathroom at this time Nurse doing blood draw at this time Nurse in room with patient Patient now in room with PA Camilo Patient changed into agown. PT REPORTS, THOUGHTS TO HARM SELF. SENT TO [facility] LAST December FOR SUICIDAL IDEATIONS. TODAY COULDN'T GET A HOLD OF COUNSELOR, DIDN'T KNOW WHAT ELSE TO DO, CAME TO ED FOR HELP. PSA taking Vitals at this time. documented in this encounter ED PROVIDER NOTE [facility] EM[facility] NAME: Melissa Kaur AGE: 24 y.o. : 1995 VISIT DATE: 03/21/2019 CSN: [id number] PCP: Verona Hilliard MD Chief Complaint Patient [...] file Gets together: Not on file Attends moravian service: Not on file Active member of [...] Yellow Clarity, Urine Hazy (A) Clear Specific [place] 1.020 1.005 - 1.025 pH, Urine 6.0 [...] not been specified. Claude Peralta MD 03/21/19 3662 Pt states abdominal pain, nausea for 3 days with vomiting starting today. documented in this encounter PT AWAKE BUT RESTFUL ON CART. RESPS UNLABORED. NO VISIBLE DISTRESS OBSERVED AND NO C/O VOICED. DISCHARGE COMPLETED. PT RESTFUL WITHOUT C/O OR NEEDS VOICED. WAITING ON COMPLETION OF TEST RESULTS AND RE-EVAL / DISPOSITION. ED PROVIDER NOTE [facility] NAME: Melissa Kaur AGE: 23 y.o. : 1995 VISIT DATE: 10/06/2018 CSN: [id number] PCP: Verona Hilliard MD Chief Complaint Patient presents with Shortness of Breath has been feeling SOB all day Hyperglycemia pt report s high BS, states it was 201 at home HPI patient is a 23-year-old with history of type 2 diabetes tlo-dhrbyyi-chbuegapq anxiety depression reactive airway disease who presents [...] (36.9 C) Oral 98 14 98 % 10/06/18 2301 5' 3 80.7 kg (178 lb) [...] Yellow Clarity, Urine Hazy (A) Clear Specific [place] 1.014 1.005 - 1.025 pH, Urine 5.0 [...] ED Disposition Condition Comment Discharge Stable Melissa J Kaur discharged to home/self care in stable condition. Follow-up Information 1. Verona Hilliard MD. Specialty: Family Medicine Why: If symptoms worsen [address] [facility] [address] Contact information for after-discharge care Follow-up information has not been specified. Kelsey Stewart MD 10/07/18 0107 PT STATES FEELING A LITTLE BETTER AFTER BREATHING TREATMENT PER RT. STATES IS A LITTLE JITTERY FROM BREATHING TREATMENT. UPDATED WAITING ON COMPLETION OF UA (URINE PREG) RESULTS AND PENDING CXR. WARMED BLANKETS GIVEN PER PT REQUEST. RT @ CARTSIDE. PT TO BR TO ATTEMPT URINE SPECIMEN. PT REPORT RECEIVED FROM BRENNAN RN AND RENEE RN. Pt ambulated to 12. Steady gait. Complaint of high BS and SOB. A&Ox3. No distress. Breathing even and unlabored. Lungs clear bilat. Assessment complete. call light in reach. [facility] [place] Bed: 12 Expected date: Expected time: Means of arrival: Comments: [facility] documented in this encounter Patient was discharged Patient pacing in room at this time LIMOUSINE RENTAL CLERK bedside [facility] ED PAUL Note: NAME: Melissa Kaur 24 y.o. CSN: [id number] PCP: Verona Hilliard MD History: Chief Complaint: [...] they are currently manageable. Patient goes to [facility] for counseling and psychiatry care. Patient reports [...] file Gets together: Not on file Attends moravian service: Not on file Active member of [...] and atraumatic. Nose: Nose normal. Mouth/Throat: Lips: [place]. Mouth: Mucous membranes are moist. Pharynx: Oropharynx [...] Result Value Clarity, Urine Hazy (*) Specific [place] 1.029 (*) Ketones, Urine Trace (*) Urobilinogen, [...] baseline and feels safe to go home. family preservation worker called and spoke with [facility] and psychiatry peetz. patient is to keep her follow-up appointment [...] Gisselle Monterroso CNP ED Advanced Practice Provider [facility] Emergency Department (Please note that portions of this note have been completed with a voice recognition software. Efforts were made to correct any errors, but occasionally words are mis-transcribed.) Gisselle Monterroso CNP 03/11/19 1301 Nurse now doing a blood draw VP PRODUCTION was in room with patient Offset Press Operator Apprentice in room with patient DAYAMI Caamcho [facility] Pt in blue gown , sitter in [...] removed from the room: IV pole; Nurse sql server consultant Misc. items removed from the room: Removable [...] CRITICAL LAB: GLUCOSE = 460; READBACK COMPLETED; VP PRODUCTION, HAILEY, MADE AWARE. ABG's completed. Patient to ED due to Heart racing And SOB. Dizziness and lightheaded noted Ambulated to restroom and backwith stand by assist. States is lightheaded Student Parmedic assisting with IV. Nicholas. Beginning assessments [facility] ED PAUL Note: NAME: Melissa Kaur 23 y.o. CSN: [id number] PCP: Verona Hilliard MD History: Chief Complaint: [...] (36.8 C) Oral 95 18 100 % 10/04/18 1939 139/89 98.4 F (36.9 C) Oral 96 [...] Procedure Abnormality Status --------- ------ CBC Auto Differential[[id number]] Final result Please view results for these tests on the individual orders. POC GLUCOSE POC GLUCOSE POC ARTERIAL BLOOD GAS PANEL-PULM - RALS CBC WITH AUTO DIFFERENTIAL XR Chest AP/PA and LAT Non-public Result No acute cardiopulmonary disease. Workstation ID: [id number] MDM: ED Course as of Oct 05 [address] [place] Oct 04, [id number] Glucose: (!!) 442 [SS] 205 Plan to initiate fluid resuscitation and evaluate [...] home. ELIF Wilhelm ED Advanced Practice Provider [facility] Emergency Department (Please note that portions of [...] 14 days? No Have you been/visited a long term in the past two weeks? No Have [...] of the above questions, consult the ordering wood and wood products factory worker to determine if patient needs COVID test [...] section and content) Associated Order(s): EEG (STANDARD) [facility] EEG Report Reason for EEG: Spells Summary: [...] Care Teams (unrecognized sec tion and content) Ax Survey Worker Relationship Specialty Start Date End Date Marshall Brown MD [address] [place] [phone] PCP - General 05/15/22 Ax Survey Worker Relationship Specialty Start Date End Date Jamari Byrne MD [address] [facility] [place] [address] PCP - General 11/12/21 Ax Survey Worker Relationship Specialty Start Date End Date Jamari Byrne MD [address] [facility] [place] [address] PCP - General 11/12/21 Jamari Byrne MD [address] [facility], [place] [address] [place] [phone] PCP - Caresource ACO PCP 10/07/22 Ax Survey Worker Relationship Specialty Start Date End Date Jamari Byrne MD [address] [facility], [place] [place] [address] PCP - General 11/12/21 Jamari Byrne MD [address] [facility], [place] [address] [place] [phone] PCP - Caresource ACO PCP 10/07/22 Ax Survey Worker Relationship Specialty Start Date End Date Jamari Bryne MD [address] [facility], [place] [address] [place] [id number] PCP - General 11/12/21 Jamari Byrne MD [address] [facility], [place] [address] [phone] PCP - [employer] PCP 10/07/22 Ax Survey Worker Relationship Specialty Start Date End Date Jamari Byrne MD [address] [place] [phone] PCP - General Family Medicine 08/19/23 Ax Survey Worker Relationship Specialty Start Date End Date Jamari Byrne MD [address] [facility], [place] [address] [place] [phone] PCP - General 11/12/21 Jamari Byrne MD [address] [facility], [place] [address] [place] [phone] PCP - [employer] [facility] PCP 10/07/22 Ax Survey Worker Relationship Specialty Start Date End Date Jamari Byrne MD [address] [place] [address] PCP - General Family Medicine 08/19/23 Ax Survey Worker Relationship Specialty Start Date End Date Jamari Byrne MD [address] [facility], [place] [address] [place] [address] PCP - General 11/12/21 Jamari Byrne MD [address] [facility], [place] [address] [phone] PCP - [employer] [facility] PCP 10/07/22 Ax Survey Worker Relationship Specialty Start Date End Date Jamari Byrne MD [address] [place] [address] PCP - General Family Medicine 08/19/23 Ax Survey Worker Relationship Specialty Start Date End Date Jamari Byrne MD [address] [place] [address] PCP - General Family Medicine 08/19/23 Ax Survey Worker Relationship Specialty Start Date End Date Jamari Byrne MD [address] [facility], [place] [address] [place] [address] PCP - General 11/12/21 Jamari Byrne MD [address] [facility], [place] [address] [place] [address] PCP - [employer] [facility] PCP 10/07/22 Ax Survey Worker Relationship Specialty Start Date End Date Jamari Byrne MD [address] [facility] PCP - General Family Medicine 08/19/23 Ax Survey Worker Relationship Specialty Start Date End Date Jamari Byrne MD [address] [place] [phone] PCP - General Family Medicine 08/19/23 Ax Survey Worker Relationship Specialty Start Date End Date Jamari Byrne MD [address] [facility], [facility] [address] [place], [place] [address] PCP - General 11/12/21 Jamari Byrne MD [address] [facility], [facility] [address] [place], [facility]05 PCP - [employer] [facility] PCP 10/07/22 Ax Survey Worker Relationship Specialty Start Date End Date Jamari Byrne MD [address] [place] [phone] PCP - General Family Medicine 08/19/23 Ax Survey Worker Relationship Specialty Start Date End Date Jamari Byrne MD [address] [place] [address] PCP - General Family Medicine 08/19/23 Ax Survey Worker Relationship Specialty Start Date End Date Jamari Byrne MD [address] [place] [address] PCP - General Family Medicine 08/19/23 Ax Survey Worker Relationship Specialty Start Date End Date Jamari Byrne MD [address] [place] [phone] PCP - General Family Medicine 08/19/23 Ax Survey Worker Relationship Specialty Start Date End Date Jamari Byrne MD [address] [place] [phone] PCP - General Family Medicine 08/19/23 Ax Survey Worker Relationship Specialty Start Date End Date Jamari Byrne MD [address] [place] [phone] PCP - General Family Medicine 08/19/23 Ax Survey Worker Relationship Specialty Start Date End Date Jamari Byrne MD [address] [facility], [facility] [address] [phone] PCP - General 11/12/21 Jamari Byrne MD [address] [facility], [facility] [address] [place], [facility]05 PCP - [employer] [facility] PCP 10/07/22 Ax Survey Worker Relationship Specialty Start Date End Date Jamari Byrne MD [address] [facility], [place] [address] [place] [address] PCP - General 11/12/21 Jamari Byrne MD [address] [facility], [place] [address] [place] [address] PCP - [employer] [facility] PCP 10/07/22 Ax Survey Worker Relationship Specialty Start Date End Date Jamari Byrne MD [address] [facility], [place] [address] [place], [facility]05 PCP - General 11/12/21 Jamari Byrne MD [address] [facility], [place] [address] [place], [facility]05 PCP - [facility] PCP 10/07/22 Ax Survey Worker Relationship Specialty Start Date End Date Jamari Byrne MD [address] [place] [phone] PCP - General Family Medicine 08/19/23 Ax Survey Worker Relationship Specialty Start Date End Date Jamari Byrne MD [address] [place] [phone] PCP - General Family Medicine 08/19/23 Ax Survey Worker Relationship Specialty Start Date End Date Jamari Byrne MD [address] [place] [phone] PCP - General Family Medicine 08/19/23 Ax Survey Worker Relationship Specialty Start Date End Date Jamari Byrne MD [address] [place] [phone] PCP - General Family Medicine 08/19/23 Ax Survey Worker Relationship Specialty Start Date End Date Jamari Byrne MD [address] [place] [phone] PCP - General Family Medicine 08/19/23 Ax Survey Worker Relationship Specialty Start Date End Date Jamari Byrne MD [address] [facility], [place] [address] [place] [address] PCP - General 11/12/21 Jamari Byrne MD [address] [facility], [place] [address] [place] [address] [facility] 10/07/22 Ax Survey Worker Relationship Specialty Start Date End Date Jamari Byrne MD [address] [place] [address] PCP - General Family Medicine 08/19/23 Ax Survey Worker Relationship Specialty Start Date End Date Jamari Byrne MD [address] [place] [address] PCP - General Family Medicine 08/19/23 Ax Survey Worker Relationship Specialty Start Date End Date Jamari Byrne MD [address] [place] [address] PCP - General Family Medicine 08/19/23 Ax Survey Worker Relationship Specialty Start Date End Date Jamari Byrne MD [address] [place] [address] PCP - General Family Medicine 08/19/23 Ax Survey Worker Relationship Specialty Start Date End Date Jamari Byrne MD [address] [place] [address] PCP - General Family Medicine 08/19/23 Ax Survey Worker Relationship Specialty Start Date End Date Jamari Byrne MD [address] [place] [address] PCP - General Family Medicine 08/19/23 Ax Survey Worker Relationship Specialty Start Date End Date Jamari Byrne MD [address] [place] [address] PCP - General Family Medicine 08/19/23 Ax Survey Worker Relationship Specialty Start Date End Date Jamari Byrne MD [address] [place] [address] PCP - General Family Medicine 08/19/23 Ax Survey Worker Relationship Specialty Start Date End Date Jamari Byrne MD [address] [place] [address] PCP - General Family Medicine 08/19/23 Ax Survey Worker Relationship Specialty Start Date End Date Jamari Byrne MD [address] [place] [address] PCP - General Family Medicine 08/19/23 Ax Survey Worker Relationship Specialty Start Date End Date Jamari Byrne MD [address] [place] [address] PCP - General Family Medicine 08/19/23 Ax Survey Worker Relationship Specialty Start Date End Date Jamari Byrne MD [address] [place] [address] PCP - General Family Medicine 08/19/23 Ax Survey Worker Relationship Specialty Start Date End Date Jamari Byrne MD [address] [place] [address] PCP - General Family Medicine 08/19/23 Ax Survey Worker Relationship Specialty Start Date End Date Jamari Byrne MD [address] [facility], [facility] [address] [place] [address] PCP - General 11/12/21 Jamari Byrne MD [address] [facility], [facility] [address] [place] [address] PCP - [facility] PCP 10/07/22 Ax Survey Worker Relationship Specialty Start Date End Date Jamari Byrne MD [address] [place] [address] PCP - General Family Medicine 08/19/23 Ax Survey Worker Relationship Specialty Start Date End Date Jamari Byrne MD [address] [place] [address] PCP - General Family Medicine 08/19/23 Ax Survey Worker Relationship Specialty Start Date End Date Jamari Byrne MD [address] [place] [address] PCP - General Family Medicine 08/19/23 Ax Survey Worker Relationship Specialty Start Date End Date Jamari Byrne MD [address] [place] [address] PCP - General Family Medicine 08/19/23 Team [...] September 24, 2024 End: September 24, 2024 Ax Survey Worker Relationship Specialty Start Date End Date Jamari Byrne MD [address] [place] [address] PCP - General Family Medicine 08/19/23 Ax Survey Worker Relationship Specialty Start Date End Date Jamari Byrne MD [address] [place] [address] PCP - General Family Medicine 08/19/23 Ax Survey Worker Relationship Specialty Start Date End Date Jamari Byrne MD [address] [place] [address] PCP - General Family Medicine 08/19/23 Ax Survey Worker Relationship Specialty Start Date End Date Jamari Byrne MD [address] [place] [address] PCP - General Family Medicine 08/19/23 Ax Survey Worker Relationship Specialty Start Date End Date Jamari Byrne MD [address] [place] [address] PCP - General Family Medicine 08/19/23 Ax Survey Worker Relationship Specialty Start Date End Date Jamari Byrne MD [address] [place] [address] PCP - General Family Medicine 08/19/23 Team Status: Inactive Member Role Status Dates Dr. Jamari Byrne MD Primary Care Provider Active Start: October 16, 2024 End: October 16, 2024 Mariajose Nickerson CNM Attending Provider Active Start: October 16, 2024 End: October 16, 2024 Ax Survey Worker Relationship Specialty Start Date End Date Jamari Byrne MD [address] [place], [facility] PCP - General Family Medicine 08/19/23 Ax Survey Worker Relationship Specialty Start Date End Date Jamari Byrne MD [address] [place], [facility] PCP - General Family Medicine 08/19/23 Ax Survey Worker Relationship Specialty Start Date End Date Jamari Byrne MD [address] [place] [phone] PCP - General Family Medicine 08/19/23 Ax Survey Worker Relationship Specialty Start Date End Date Jamari Byrne MD [address] [place], [facility] PCP - General Family Medicine 08/19/23 Ax Survey Worker Relationship Specialty Start Date End Date Jamari Byrne MD [address] [place] [phone] PCP - General Family Medicine 08/19/23 Ax Survey Worker Relationship Specialty Start Date End Date Jamari Byrne MD [address] [place], [facility] PCP - General Family Medicine 08/19/23 Ax Survey Worker Relationship Specialty Start Date End Date Jamari Byrne MD [address] [place], [facility] PCP - General Family Medicine 08/19/23 Ax Survey Worker Relationship Specialty Start Date End Date Jamari Byrne MD [address] [place] [address] PCP - General Family Medicine 08/19/23 Ax Survey Worker Relationship Specialty Start Date End Date Jamari Byrne MD [address] [place] [address] PCP - General Family Medicine 08/19/23 Ax Survey Worker Relationship Specialty Start Date End Date Jamari Byrne MD [address] [place] [address] PCP - General Family Medicine 08/19/23 Ax Survey Worker Relationship Specialty Start Date End Date Jamari Byrne MD [address] [place] [address] PCP - General Family Medicine 08/19/23 Ax Survey Worker Relationship Specialty Start Date End Date Jamari Byrne MD [address] [place] [address] PCP - General Family Medicine 08/19/23 Ax Survey Worker Relationship Specialty Start Date End Date Jamari Byrne MD [address] [place] [address] PCP - General Family Medicine 08/19/23 Ax Survey Worker Relationship Specialty Start Date End Date Jamari Byrne MD [address] [place] [address] PCP - General Family Medicine 08/19/23 Ax Survey Worker Relationship Specialty Start Date End Date Jamari Byrne MD [address] [place] [address] PCP - General Family Medicine 08/19/23 Ax Survey Worker Relationship Specialty Start Date End Date Jamari Byrne MD [address] [place] [address] PCP - General Family Medicine 08/19/23 Team Status: Inactive Member Role Status Dates Dr. Jamari Byrne MD Primary Care Provider Active Start: November 15, 2024 End: November 15, 2024 Dr. Whit Patel MD Attending Provider Ac tive Start: November 15, 2024 End: November 15, 2024 Dr. Whit Patel MD Referring Provider Ac tive Start: November 15, 2024 End: November 15, 2024 Ax Survey Worker Relationship Specialty Start Date End Date Jamari Byrne MD [address] [place] [id number] PCP - General Family Medicine 08/19/23 Ax Survey Worker Relationship Specialty Start Date End Date Jamari Byrne MD [address] [place] [phone] PCP - General Family Medicine 08/19/23 Ax Survey Worker Relationship Specialty Start Date End Date Jamari Byrne MD [address] [address] PCP - General Family Medicine 08/19/23 Ax Survey Worker Relationship Specialty Start Date End Date Jamair Byrne MD [address] [address] PCP - General Family Medicine 08/19/23 Ax Survey Worker Relationship Specialty Start Date End Date Jamari Byrne MD [address] [facility] [place] [address] PCP - General Family Medicine 08/19/23 Ax Survey Worker Relationship Specialty Start Date End Date Jamari Byrne MD [address] [place] [phone] PCP - General Family Medicine 08/19/23 Ax Survey Worker Relationship Specialty Start Date End Date Jamari Byrne MD [address] [place] [phone] PCP - General Family Medicine 08/19/23 Ax Survey Worker Relationship Specialty Start Date End Date Jamari Byrne MD [address] [place] [address] PCP - General Family Medicine 08/19/23 Team Status: Active Member Role/Relationship Status Dates No Primary Care Physician Family Provider Active Dr. Jamari Byrne MD Primary Care Provider Active Team Status: Inactive Member Role/Relationship Status Dates Dr. Jamari Byrne MD Primary Care Provider Active Start: September 24, 2024 End: September 24, 2024 Leonie Waldron CNM Attending Provider Active St art: September 24, 2024 End: September 24, 2024 Leonie Waldron CNM Referring Provider Active St art: September 24, 2024 End: September 24, 2024 Team Status: Inactive Member Role/Relationship Status Dates Dr. Jamari Byrne MD Primary Care Provider Active Start: October 16, 2024 End: October 16, 2024 Mariajose Nickerson CNM Attending Provider Active Start: October 16, 2024 End: October 16, 2024 Team Status: Inactive Member Role/Relationship Status Dates Dr. Jamari Byrne MD Primary Care Provider Active Start: November 15, 2024 End: November 15, 2024 Dr. Whit Patel MD Attending Provider Ac tive Start: November 15, 2024 End: November 15, 2024 Dr. Whit Patel MD Referring Provider Ac tive Start: November 15, 2024 End: November 15, 2024 Team Status: Inactive Member Role/Relationship Status Dates Dr. Jamari Byrne MD Primary Care Provider Active Start: December 07, 2024 End: December 09, 2024 Dr. William Gramajo MD Admit Provider Active Star t: December 07, 2024 End: December 09, 2024 Dr. William [place] MD Attending Provider Active Start: December 07, 2024 End: December 09, 2024 Dr. William [place]ajo MD Referring Provider Active Start: December 07, 2024 End: December 09, 2024 Team Status: Inactive Member Role/Relationship Status Dates Dr. Jamari Byrne MD Primary Care Provider Active Start: December 16, 2024 End: December 16, 2024 Mariajose Nickerson CNM Attending Provider Active Start: December 16, 2024 End: December 16, 2024 Mariajose Nickerson CNM Referring Provider Active Start: December 16, 2024 End: December 16, 2024 Ax Survey Worker Relationship Specialty Start Date End Date Jamari Byrne MD [address] [place] [phone] PCP - General Family Medicine 08/19/23 Ax Survey Worker Relationship Specialty Start Date End Date Jamari Byrne MD [address] [place] [address] PCP - General Family Medicine 08/19/23 Source Comments (unrecognize d section and content) In the event this informatio n is protected by the Federal Confidentiality of Alcohol and Drug Abuse Patient Records regulations: The Federal rules restrict any use of the information to criminally investigate or prosecute any alcohol or drug abuse patient.[facility] the event this information is protected by the Federal Confidentiality of Alcohol and Drug Abuse Patient Records regulations: The Federal rules restrict any use of the information to criminally investigate or prosecute any alcohol or drug abuse patient.[facility] the event this information is protected by the Federal Confidentiality of Alcohol and Drug Abuse Patient Records regulations: The Federal rules restrict any use of the information to criminally investigate or prosecute any alcohol or drug abuse patient.[facility] HospitalIn the event this information is protected by the Federal Confidentiality of Alcohol and Drug Abuse Patient Records regulations: The Federal rules restrict any use of the information to criminally investigate or prosecute any alcohol or drug abuse patient.[facility] HospitalIn the event this information is protected by the Federal Confidentiality of Alcohol and Drug Abuse Patient Records regulations: The Federal rules restrict any use of the information to criminally investigate or prosecute any alcohol or drug abuse patient.[facility] HospitalIn the event this information is protected by the Federal Confidentiality of Alcohol and Drug Abuse Patient Records regulations: The Federal rules restrict any use of the information to criminally investigate or prosecute any alcohol or drug abuse patient.[facility] HospitalIn the event this information is protected by the Federal Confidentiality of Alcohol and Drug Abuse Patient Records regulations: The Federal rules restrict any use of the information to criminally investigate or prosecute any alcohol or drug abuse patient.[facility] HospitalIn the event this information is protected by the Federal Confidentiality of Alcohol and Drug Abuse Patient Records regulations: The Federal rules restrict any use of the information to criminally investigate or prosecute any alcohol or drug abuse patient.[facility] HospitalIn the event this information is protected by the Federal Confidentiality of Alcohol and Drug Abuse Patient Records regulations: The Federal rules restrict any use of the information to criminally investigate or prosecute any alcohol or drug abuse patient.[facility] HospitalIn the event this information is protected by the Federal Confidentiality of Alcohol and Drug Abuse Patient Records regulations: The Federal rules restrict any use of the information to criminally investigate or prosecute any alcohol or drug abuse patient.[facility] HospitalIn the event this information is protected by the Federal Confidentiality of Alcohol and Drug Abuse Patient Records regulations: The Federal rules restrict any use of the information to criminally investigate or prosecute any alcohol or drug abuse patient.[facility] HospitalIn the event this information is protected by the Federal Confidentiality of Alcohol and Drug Abuse Patient Records regulations: The Federal rules restrict any use of the information to criminally investigate or prosecute any alcohol or drug abuse patient.[facility] HospitalIn the event this information is protected by the Federal Confidentiality of Alcohol and Drug Abuse Patient Records regulations: The Federal rules restrict any use of the information to criminally investigate or prosecute any alcohol or drug abuse patient.[facility] HospitalIn the event this information is protected by the Federal Confidentiality of Alcohol and Drug Abuse Patient Records regulations: The Federal rules restrict any use of the information to criminally investigate or prosecute any alcohol or drug abuse patient.[facility] HospitalIn the event this information is protected by the Federal Confidentiality of Alcohol and Drug Abuse Patient Records regulations: The Federal rules restrict any use of the information to criminally investigate or prosecute any alcohol or drug abuse patient.[facility] HospitalIn the event this information is protected by the Federal Confidentiality of Alcohol and Drug Abuse Patient Records regulations: The Federal rules restrict any use of the information to criminally investigate or prosecute any alcohol or drug abuse patient.[facility] HospitalIn the event this information is protected by the Federal Confidentiality of Alcohol and Drug Abuse Patient Records regulations: The Federal rules restrict any use of the information to criminally investigate or prosecute any alcohol or drug abuse patient.[facility] HospitalIn the event this information is protected by the Federal Confidentiality of Alcohol and Drug Abuse Patient Records regulations: The Federal rules restrict any use of the information to criminally investigate or prosecute any alcohol or drug abuse patient.[facility] HospitalIn the event this information is protected by the Federal Confidentiality of Alcohol and Drug Abuse Patient Records regulations: The Federal rules restrict any use of the information to criminally investigate or prosecute any alcohol or drug abuse patient.[facility] HospitalIn the event this information is protected by the Federal Confidentiality of Alcohol and Drug Abuse Patient Records regulations: The Federal rules restrict any use of the information to criminally investigate or prosecute any alcohol or drug abuse patient.[facility] HospitalIn the event this information is protected by the Federal Confidentiality of Alcohol and Drug Abuse Patient Records regulations: The Federal rules restrict any use of the information to criminally investigate or prosecute any alcohol or drug abuse patient.[facility] HospitalIn the event this information is protected by the Federal Confidentiality of Alcohol and Drug Abuse Patient Records regulations: The Federal rules restrict any use of the information to criminally investigate or prosecute any alcohol or drug abuse patient.[facility] HospitalIn the event this information is protected by the Federal Confidentiality of Alcohol and Drug Abuse Patient Records regulations: The Federal rules restrict any use of the information to criminally investigate or prosecute any alcohol or drug abuse patient.[facility] HospitalIn the event this information is protected by the Federal Confidentiality of Alcohol and Drug Abuse Patient Records regulations: The Federal rules restrict any use of the information to criminally investigate or prosecute any alcohol or drug abuse patient.[facility] HospitalIn the event this information is protected by the Federal Confidentiality of Alcohol and Drug Abuse Patient Records regulations: The Federal rules restrict any use of the information to criminally investigate or prosecute any alcohol or drug abuse patient.[facility] HospitalIn the event this information is protected by the Federal Confidentiality of Alcohol and Drug Abuse Patient Records regulations: The Federal rules restrict any use of the information to criminally investigate or prosecute any alcohol or drug abuse patient.[facility]In the event this information is protected by the Federal Confidentiality of Alcohol and Drug Abuse Patient Records regulations: The Federal rules restrict any use of the information to criminally investigate or prosecute any alcohol or drug abuse patient.[facility]In the event this information is protected by the Federal Confidentiality of Alcohol and Drug Abuse Patient Records regulations: The Federal rules restrict any use of the information to criminally investigate or prosecute any alcohol or drug abuse patient.[facility]In the event this information is protected by the Federal Confidentiality of Alcohol and Drug Abuse Patient Records regulations: The Federal rules restrict any use of the information to criminally investigate or prosecute any alcohol or drug abuse patient.[facility] HospitalIn the event this information is protected by the Federal Confidentiality of Alcohol and Drug Abuse Patient Records regulations: The Federal rules restrict any use of the information to criminally investigate or prosecute any alcohol or drug abuse patient.[facility] HospitalIn the event this information is protected by the Federal Confidentiality of Alcohol and Drug Abuse Patient Records regulations: The Federal rules restrict any use of the information to criminally investigate or prosecute any alcohol or drug abuse patient.[facility] HospitalIn the event this information is protected by the Federal Confidentiality of Alcohol and Drug Abuse Patient Records regulations: The Federal rules restrict any use of the information to criminally investigate or prosecute any alcohol or drug abuse patient.[facility] HospitalIn the event this information is protected by the Federal Confidentiality of Alcohol and Drug Abuse Patient Records regulations: The Federal rules restrict any use of the information to criminally investigate or prosecute any alcohol or drug abuse patient.[facility]In the event this information is protected by the Federal Confidentiality of Alcohol and Drug Abuse Patient Records regulations: The Federal rules restrict any use of the information to criminally investigate or prosecute any alcohol or drug abuse patient.[facility] HospitalIn the event this information is protected by the Federal Confidentiality of Alcohol and Drug Abuse Patient Records regulations: The Federal rules restrict any use of the information to criminally investigate or prosecute any alcohol or drug abuse patient.[facility] HospitalIn the event this information is protected by the Federal Confidentiality of Alcohol and Drug Abuse Patient Records regulations: The Federal rules restrict any use of the information to criminally investigate or prosecute any alcohol or drug abuse patient.[facility] HospitalIn the event this information is protected by the Federal Confidentiality of Alcohol and Drug Abuse Patient Records regulations: The Federal rules restrict any use of the information to criminally investigate or prosecute any alcohol or drug abuse patient.[facility] HospitalIn the event this information is protected by the Federal Confidentiality of Alcohol and Drug Abuse Patient Records regulations: The Federal rules restrict any use of the information to criminally investigate or prosecute any alcohol or drug abuse patient.[facility] HospitalIn the event this information is protected by the Federal Confidentiality of Alcohol and Drug Abuse Patient Records regulations: The Federal rules restrict any use of the information to criminally investigate or prosecute any alcohol or drug abuse patient.[facility] HospitalIn the event this information is protected by the Federal Confidentiality of Alcohol and Drug Abuse Patient Records regulations: The Federal rules restrict any use of the information to criminally investigate or prosecute any alcohol or drug abuse patient.[facility] HospitalIn the event this information is protected by the Federal Confidentiality of Alcohol and Drug Abuse Patient Records regulations: The Federal rules restrict any use of the information to criminally investigate or prosecute any alcohol or drug abuse patient.[facility] HospitalIn the event this information is protected by the Federal Confidentiality of Alcohol and Drug Abuse Patient Records regulations: The Federal rules restrict any use of the information to criminally investigate or prosecute any alcohol or drug abuse patient.[facility] HospitalIn the event this information is protected by the Federal Confidentiality of Alcohol and Drug Abuse Patient Records regulations: The Federal rules restrict any use of the information to criminally investigate or prosecute any alcohol or drug abuse patient.[facility] HospitalIn the event this information is protected by the Federal Confidentiality of Alcohol and Drug Abuse Patient Records regulations: The Federal rules restrict any use of the information to criminally investigate or prosecute any alcohol or drug abuse patient.[facility] HospitalIn the event this information is protected by the Federal Confidentiality of Alcohol and Drug Abuse Patient Records regulations: The Federal rules restrict any use of the information to criminally investigate or prosecute any alcohol or drug abuse patient.[facility] HospitalIn the event this information is protected by the Federal Confidentiality of Alcohol and Drug Abuse Patient Records regulations: The Federal rules restrict any use of the information to criminally investigate or prosecute any alcohol or drug abuse patient.[facility] HospitalIn the event this information is protected by the Federal Confidentiality of Alcohol and Drug Abuse Patient Records regulations: The Federal rules restrict any use of the information to criminally investigate or prosecute any alcohol or drug abuse patient.[facility] HospitalIn the event this information is protected by the Federal Confidentiality of Alcohol and Drug Abuse Patient Records regulations: The Federal rules restrict any use of the information to criminally investigate or prosecute any alcohol or drug abuse patient.[facility] HospitalIn the event this information is protected by the Federal Confidentiality of Alcohol and Drug Abuse Patient Records regulations: The Federal rules restrict any use of the information to criminally investigate or prosecute any alcohol or drug abuse patient.[facility] HospitalIn the event this information is protected by the Federal Confidentiality of Alcohol and Drug Abuse Patient Records regulations: The Federal rules restrict any use of the information to criminally investigate or prosecute any alcohol or drug abuse patient.[facility] HospitalIn the event this information is protected by the Federal Confidentiality of Alcohol and Drug Abuse Patient Records regulations: The Federal rules restrict any use of the information to criminally investigate or prosecute any alcohol or drug abuse patient.[facility] the event this information is protected by the Federal Confidentiality of Alcohol and Drug Abuse Patient Records regulations: The Federal rules restrict any use of the information to criminally investigate or prosecute any alcohol or drug abuse patient.[facility] HospitalIn the event this information is protected by the Federal Confidentiality of Alcohol and Drug Abuse Patient Records regulations: The Federal rules restrict any use of the information to criminally investigate or prosecute any alcohol or drug abuse patient.[facility] HospitalIn the event this information is protected by the Federal Confidentiality of Alcohol and Drug Abuse Patient Records regulations: The Federal rules restrict any use of the information to criminally investigate or prosecute any alcohol or drug abuse patient.[facility] HospitalIn the event this information is protected by the Federal Confidentiality of Alcohol and Drug Abuse Patient Records regulations: The Federal rules restrict any use of the information to criminally investigate or prosecute any alcohol or drug abuse patient.[facility] HospitalIn the event this information is protected by the Federal Confidentiality of Alcohol and Drug Abuse Patient Records regulations: The Federal rules restrict any use of the information to criminally investigate or prosecute any alcohol or drug abuse patient.[facility] HospitalIn the event this information is protected by the Federal Confidentiality of Alcohol and Drug Abuse Patient Records regulations: The Federal rules restrict any use of the information to criminally investigate or prosecute any alcohol or drug abuse patient.[facility] HospitalIn the event this information is protected by the Federal Confidentiality of Alcohol and Drug Abuse Patient Records regulations: The Federal rules restrict any use of the information to criminally investigate or prosecute any alcohol or drug abuse patient.[facility] HospitalIn the event this information is protected by the Federal Confidentiality of Alcohol and Drug Abuse Patient Records regulations: The Federal rules restrict any use of the information to criminally investigate or prosecute any alcohol or drug abuse patient.[facility] HospitalIn the event this information is protected by the Federal Confidentiality of Alcohol and Drug Abuse Patient Records regulations: The Federal rules restrict any use of the information to criminally investigate or prosecute any alcohol or drug abuse patient.[facility] HospitalIn the event this information is protected by the Federal Confidentiality of Alcohol and Drug Abuse Patient Records regulations: The Federal rules restrict any use of the information to criminally investigate or prosecute any alcohol or drug abuse patient.[facility] HospitalIn the event this information is protected by the Federal Confidentiality of Alcohol and Drug Abuse Patient Records regulations: The Federal rules restrict any use of the information to criminally investigate or prosecute any alcohol or drug abuse patient.[facility] HospitalIn the event this information is protected by the Federal Confidentiality of Alcohol and Drug Abuse Patient Records regulations: The Federal rules restrict any use of the information to criminally investigate or prosecute any alcohol or drug abuse patient.[facility] HospitalIn the event this information is protected by the Federal Confidentiality of Alcohol and Drug Abuse Patient Records regulations: The Federal rules restrict any use of the information to criminally investigate or prosecute any alcohol or drug abuse patient.[facility] HospitalIn the event this information is protected by the Federal Confidentiality of Alcohol and Drug Abuse Patient Records regulations: The Federal rules restrict any use of the information to criminally investigate or prosecute any alcohol or drug abuse patient.[facility] HospitalIn the event this information is protected by the Federal Confidentiality of Alcohol and Drug Abuse Patient Records regulations: The Federal rules restrict any use of the information to criminally investigate or prosecute any alcohol or drug abuse patient.[facility] HospitalIn the event this information is protected by the Federal Confidentiality of Alcohol and Drug Abuse Patient Records regulations: The Federal rules restrict any use of the information to criminally investigate or prosecute any alcohol or drug abuse patient.[facility] HospitalIn the event this information is protected by the Federal Confidentiality of Alcohol and Drug Abuse Patient Records regulations: The Federal rules restrict any use of the information to criminally investigate or prosecute any alcohol or drug abuse patient.[facility] HospitalIn the event this information is protected by the Federal Confidentiality of Alcohol and Drug Abuse Patient Records regulations: The Federal rules restrict any use of the information to criminally investigate or prosecute any alcohol or drug abuse patient.[facility] HospitalIn the event this information is protected by the Federal Confidentiality of Alcohol and Drug Abuse Patient Records regulations: The Federal rules restrict any use of the information to criminally investigate or prosecute any alcohol or drug abuse patient.[facility] HospitalIn the event this information is protected by the Federal Confidentiality of Alcohol and Drug Abuse Patient Records regulations: The Federal rules restrict any use of the information to criminally investigate or prosecute any alcohol or drug abuse patient.[facility] HospitalIn the event this information is protected by the Federal Confidentiality of Alcohol and Drug Abuse Patient Records regulations: The Federal rules restrict any use of the information to criminally investigate or prosecute any alcohol or drug abuse patient.[facility] HospitalIn the event this information is protected by the Federal Confidentiality of Alcohol and Drug Abuse Patient Records regulations: The Federal rules restrict any use of the information to criminally investigate or prosecute any alcohol or drug abuse patient.[facility] HospitalIn the event this information is protected by the Federal Confidentiality of Alcohol and Drug Abuse Patient Records regulations: The Federal rules restrict any use of the information to criminally investigate or prosecute any alcohol or drug abuse patient.[facility] HospitalIn the event this information is protected by the Federal Confidentiality of Alcohol and Drug Abuse Patient Records regulations: The Federal rules restrict any use of the information to criminally investigate or prosecute any alcohol or drug abuse patient.[facility] HospitalIn the event this information is protected by the Federal Confidentiality of Alcohol and Drug Abuse Patient Records regulations: The Federal rules restrict any use of the information to criminally investigate or prosecute any alcohol or drug abuse patient.[facility] HospitalIn the event this information is protected by the Federal Confidentiality of Alcohol and Drug Abuse Patient Records regulations: The Federal rules restrict any use of the information to criminally investigate or prosecute any alcohol or drug abuse patient.[facility] HospitalIn the event this information is protected by the Federal Confidentiality of Alcohol and Drug Abuse Patient Records regulations: The Federal rules restrict any use of the information to criminally investigate or prosecute any alcohol or drug abuse patient.[facility] HospitalIn the event this information is protected by the Federal Confidentiality of Alcohol and Drug Abuse Patient Records regulations: The Federal rules restrict any use of the information to criminally investigate or prosecute any alcohol or drug abuse patient.[facility] HospitalIn the event this information is protected by the Federal Confidentiality of Alcohol and Drug Abuse Patient Records regulations: The Federal rules restrict any use of the information to criminally investigate or prosecute any alcohol or drug abuse patient.[facility] HospitalIn the event this information is protected by the Federal Confidentiality of Alcohol and Drug Abuse Patient Records regulations: The Federal rules restrict any use of the information to criminally investigate or prosecute any alcohol or drug abuse patient.[facility] HospitalIn the event this information is protected by the Federal Confidentiality of Alcohol and Drug Abuse Patient Records regulations: The Federal rules restrict any use of the information to criminally investigate or prosecute any alcohol or drug abuse patient.[facility] HospitalIn the event this information is protected by the Federal Confidentiality of Alcohol and Drug Abuse Patient Records regulations: The Federal rules restrict any use of the information to criminally investigate or prosecute any alcohol or drug abuse patient.[facility] HospitalIn the event this information is protected by the Federal Confidentiality of Alcohol and Drug Abuse Patient Records regulations: The Federal rules restrict any use of the information to criminally investigate or prosecute any alcohol or drug abuse patient.[facility] HospitalIn the event this information is protected by the Federal Confidentiality of Alcohol and Drug Abuse Patient Records regulations: The Federal rules restrict any use of the information to criminally investigate or prosecute any alcohol or drug abuse patient.[facility] HospitalIn the event this information is protected by the Federal Confidentiality of Alcohol and Drug Abuse Patient Records regulations: The Federal rules restrict any use of the information to criminally investigate or prosecute any alcohol or drug abuse patient.[facility] HospitalIn the event this information is protected by the Federal Confidentiality of Alcohol and Drug Abuse Patient Records regulations: The Federal rules restrict any use of the information to criminally investigate or prosecute any alcohol or drug abuse patient.[facility] HospitalIn the event this information is protected by the Federal Confidentiality of Alcohol and Drug Abuse Patient Records regulations: The Federal rules restrict any use of the information to criminally investigate or prosecute any alcohol or drug abuse patient.[facility] HospitalIn the event this information is protected by the Federal Confidentiality of Alcohol and Drug Abuse Patient Records regulations: The Federal rules restrict any use of the information to criminally investigate or prosecute any alcohol or drug abuse patient.[facility] HospitalIn the event this information is protected by the Federal Confidentiality of Alcohol and Drug Abuse Patient Records regulations: The Federal rules restrict any use of the information to criminally investigate or prosecute any alcohol or drug abuse patient.[facility] HospitalIn the event this information is protected by the Federal Confidentiality of Alcohol and Drug Abuse Patient Records regulations: The Federal rules restrict any use of the information to criminally investigate or prosecute any alcohol or drug abuse patient.[facility] HospitalIn the event this information is protected by the Federal Confidentiality of Alcohol and Drug Abuse Patient Records regulations: The Federal rules restrict any use of the information to criminally investigate or prosecute any alcohol or drug abuse patient.[facility] HospitalIn the event this information is protected by the Federal Confidentiality of Alcohol and Drug Abuse Patient Records regulations: The Federal rules restrict any use of the information to criminally investigate or prosecute any alcohol or drug abuse patient.[facility] HospitalIn the event this information is protected by the Federal Confidentiality of Alcohol and Drug Abuse Patient Records regulations: The Federal rules restrict any use of the information to criminally investigate or prosecute any alcohol or drug abuse patient.[facility] HospitalIn the event this information is protected by the Federal Confidentiality of Alcohol and Drug Abuse Patient Records regulations: The Federal rules restrict any use of the information to criminally investigate or prosecute any alcohol or drug abuse patient.[facility]In the event this information is protected by the Federal Confidentiality of Alcohol and Drug Abuse Patient Records regulations: The Federal rules restrict any use of the information to criminally investigate or prosecute any alcohol or drug abuse patient.[facility] HospitalIn the event this information is protected by the Federal Confidentiality of Alcohol and Drug Abuse Patient Records regulations: The Federal rules restrict any use of the information to criminally investigate or prosecute any alcohol or drug abuse patient.[facility] HospitalIn the event this information is protected by the Federal Confidentiality of Alcohol and Drug Abuse Patient Records regulations: The Federal rules restrict any use of the information to criminally investigate or prosecute any alcohol or drug abuse patient.[facility]In the event this information is protected by the Federal Confidentiality of Alcohol and Drug Abuse Patient Records regulations: The Federal rules restrict any use of the information to criminally investigate or prosecute any alcohol or drug abuse patient.[facility]In the event this information is protected by the Federal Confidentiality of Alcohol and Drug Abuse Patient Records regulations: The Federal rules restrict any use of the information to criminally investigate or prosecute any alcohol or drug abuse patient.[facility] HospitalIn the event this information is protected by the Federal Confidentiality of Alcohol and Drug Abuse Patient Records regulations: The Federal rules restrict any use of the information to criminally investigate or prosecute any alcohol or drug abuse patient.[facility]In the event this information is protected by the Federal Confidentiality of Alcohol and Drug Abuse Patient Records regulations: The Federal rules restrict any use of the information to criminally investigate or prosecute any alcohol or drug abuse patient.[facility]In the event this information is protected by the Federal Confidentiality of Alcohol and Drug Abuse Patient Records regulations: The Federal rules restrict any use of the information to criminally investigate or prosecute any alcohol or drug abuse patient.[facility]In the event this information is protected by the Federal Confidentiality of Alcohol and Drug Abuse Patient Records regulations: The Federal rules restrict any use of the information to criminally investigate or prosecute any alcohol or drug abuse patient.[facility]In the event this information is protected by the Federal Confidentiality of Alcohol and Drug Abuse Patient Records regulations: The Federal rules restrict any use of the information to criminally investigate or prosecute any alcohol or drug abuse patient.[facility]In the event this information is protected by the Federal Confidentiality of Alcohol and Drug Abuse Patient Records regulations: The Federal rules restrict any use of the information to criminally investigate or prosecute any alcohol or drug abuse patient.[facility] HospitalIn the event this information is protected by the Federal Confidentiality of Alcohol and Drug Abuse Patient Records regulations: The Federal rules restrict any use of the information to criminally investigate or prosecute any alcohol or drug abuse patient.[facility]In the event this information is protected by the Federal Confidentiality of Alcohol and Drug Abuse Patient Records regulations: The Federal rules restrict any use of the information to criminally investigate or prosecute any alcohol or drug abuse patient.[facility] HospitalIn the event this information is protected by the Federal Confidentiality of Alcohol and Drug Abuse Patient Records regulations: The Federal rules restrict any use of the information to criminally investigate or prosecute any alcohol or drug abuse patient.[facility] HospitalIn the event this information is protected by the Federal Confidentiality of Alcohol and Drug Abuse Patient Records regulations: The Federal rules restrict any use of the information to criminally investigate or prosecute any alcohol or drug abuse patient.[place] [facility] the event this information is protected by the Federal Confidentiality of Alcohol and Drug Abuse Patient Records regulations: The Federal rules restrict any use of the information to criminally investigate or prosecute any alcohol or drug abuse patient.[place] [facility] the event this information is protected by the Federal Confidentiality of Alcohol and Drug Abuse Patient Records regulations: The Federal rules restrict any use of the information to criminally investigate or prosecute any alcohol or drug abuse patient.[facility]In the event this information is protected by the Federal Confidentiality of Alcohol and Drug Abuse Patient Records regulations: The Federal rules restrict any use of the information to criminally investigate or prosecute any alcohol or drug abuse patient.[facility]In the event this information is protected by the [facility] Confidentiality of Alcohol and Drug Abuse Patient Records regulations: The Federal rules restrict any use of the information to criminally investigate or prosecute any alcohol or drug abuse patient.[facility]In the event this information is protected by the Federal Confidentiality of Alcohol and Drug Abuse Patient Records regulations: The Federal rules restrict any use of the information to criminally investigate or prosecute any alcohol or drug abuse patient.[facility] Scheduled Active and Recently Administ ered [...] BE BASED ON THE PRIMARY CLINICAL RECORDS. [employer] [facility]. provides no warranty or guarantee of the accuracy or completeness of information in this document.
[2025-01-20 23:26] LABS: SITE Not entered; VBG BASE EXCESS 2 mmol/L (-1.0-3.5); VBG PO2 48 mmHg (25-40); VBG SO2 84 % (50-70); VBG TCO2 28 mmol/L (23-33)
[2025-01-20 23:27] LABS: Color, Urine Straw (Yellow); Glucose, Dipstick Normal (Normal); Ketone-Dipstick Negative (Negative); Leukocyte Esterase-Dipstick 25 /ul (Negative); Nitrite-Dipstick Negative (Negative); Occult Blood-Urine Negative /ul (Negative); Protein-Dipstick 30 mg/dl (Negative); Specific Gravity, Urine 1.020 (1.002-1.030); Urine Bilirubin Dipstick Negative (Negative)
[2025-01-20 23:31] LABS: AST(SGOT) 17 U/L (<=31); Alanine Aminotransfer ALT/SGPT 37 U/L (<=34); Albumin, Serum 3.9 g/dL (3.5-5.0); Alkaline Phosphatase 89 U/L (35-104); Anion Gap 13 (5-15); BUN 12 mg/dL (4-19); BUN/Creat Ratio 18.5 RATIO (10-20); Bilirubin, Direct 0.10 mg/dL (0.00-0.30); Calcium,Total 9.2 mg/dL (7.6-11.0); Carbon Dioxide 21.5 mmol/L (21.0-32.0); Chloride 105 mmol/L (98-108); Estimated Creatinine Clearance 132.14 ml/min (50-250); Globulin 3.0 g/dL (2.2-4.2); Glucose 206 mg/dL (70-99); Lipase 29 U/L (13-75); Potassium 3.5 mmol/L (3.3-5.1)
[2025-01-20 23:35] LABS: Internal QC Validated? YES +Cl - CLEAR BKGD; Pregnancy, Serum, hCG Quali. NEGATIVE Negative; Record Kit Lot#, Serum Preg. 0000962302
--- NOTE | 2025-01-20 23:44 | EX.ED.DYSGE1 ---
HPI History of Present Illness Chief Complaint: Nausea/Vomiting Informant: patient Narrative Narrative: Patient is a 29-year-old female with past medical history of insulin-dependent type 2 diabetes and bipolar disorder. She states she is approximately 6 weeks . She states she delivered at 38 weeks via vaginal delivery. She states she and the baby stayed roughly 1 to 2 days in the hospital and then were discharged home. She states she has been doing well other than the generalized fatigue that comes with caring for her . This evening she was feeling extremely fatigued and took a bath. She states she fell asleep in the bath. Then she awoke with waves of nausea followed by bouts of vomiting. She states that there has been no fevers or chills. She denies any diarrhea or dysuria. She denies any known sick contact. She states there is no discoloration or blood in the emesis. However she did check her sugar she reports that it was elevated and that coupled with her bouts of nausea and vomiting concerned her and therefore she presents for evaluation [facility] Medical History Seizures Asthma Osteoarthritis Diabetes Home Medications ?Medication ?Instructions ?Recorded ?Last Taken ?Type buspirone 15 mg tablet 15 mg PO QDAY anxiety 02/26/24 12/16/24 History HumuLIN N NPH Insulin KwikPen 90 units subcut QHS type II 10/16/24 12/15/24 History diabetes albuterol sulfate 90 mcg/actuation 1 - 2 puff inhalation PRN PRN 11/15/24 11/01/24 15:57 History aerosol inhaler shortness of breath or wheezing fluoxetine 20 mg capsule 20 mg PO DAILY anxiety 11/15/24 12/16/24 History insulin lispro 100 unit/mL 8 unit subcut TID 12/16/24 Unknown History subcutaneous pen (Humalog KwikPen (U-100) Insulin) Allergy/AdvReac Type Severity Reaction Status Date / Time aripiprazole (From Abilify) AdvReac Other Verified 01/20/25 22:24 metoclopramide (From Reglan) AdvReac Other Verified 01/20/25 22:24 ondansetron (From Zofran) AdvReac Vomiting Verified 01/20/25 22:24 quetiapine (From Seroquel) AdvReac Other Verified 01/20/25 22:24 sertraline (From Zoloft) AdvReac Other Verified 01/20/25 22:24 Family History Other Heart disease Hyperlipemia Surgical History History of dilation and curettage History of oral surgery History of cholecystectomy Social History Smoking Status: Current every day smoker tobacco type: cigarettes alcohol intake: never substance use type: does not use ROS ROS ED Constitutional Constitutional ED: Reports other Details: Positive generalized fatigue ; Denies chills or fever(s) Eyes Eyes: Denies change in vision ENT ENT ED: Denies sore throat Cardiovascular Cardiovascular: Denies chest pain or palpitations Respiratory/Chest Respiratory/Chest: Denies cough or dyspnea Gastrointestinal Gastrointestinal: Reports nausea and vomiting; Denies abdominal pain or diarrhea Genitourinary Genitourinary ED: Denies dysuria or hematuria Musculoskeletal Musculoskeletal: Denies myalgias Integumentary Denies rash Neurologic Neurologic: Denies headache(s) Hematologic/Lymphatic Hematologic/Lymphatic: Denies easy bleeding or easy bruising EXAM Physical Exam Const Vital Signs: 01/20/25 22:32 01/21/25 00:23 01/21/25 00:34 Temperature 97.5 F L 97.9 F Temperature Source Oral Pulse Rate 133 H 100 100 Respiratory Rate 24 H 20 H 20 H Blood Pressure 145/92 H 123/84 H 123/84 H Blood Pressure Mean 109 97 97 Pulse Ox 100 100 100 Oxygen Delivery Method Room Air Positive well nourished, well developed and obese General Appearance ED: well developed; Negative for pallor Nutritional Appearance: obese HEENT Reports moist mucous membranes HEENT Narrative: Normocephalic atraumatic No tongue or lip swelling no oral lesions no airway edema or compromise; no secondary findings in the posterior pharynx to suggest infection Eyes PERRL and EOMs intact bilaterally General Eye ED: Negative for scleral icterus Neck supple Neck Narrative: No nuchal rigidity or meningeal signs Resp normal respiratory effort and clear to auscultation bilaterally Cardio regular rhythm Rate: tachycardic and other Other Details: Tachycardic rate with regular rhythm No murmurs rubs or gallop Radial and carotid pulses are equal and symmetric GI non-tender, non-distended and no masses GI Narrative: Abdomen is soft nontender and nondistended with hyperactive bowel sounds. No voluntary guarding or rigidity. No pulsatile mass or fluid wave. Auscultation: hyperactive bowel sounds Palpation: soft Back/Spine no CVA tenderness Extremity normal to inspection Extremity Narrative: No asymmetric edema no pitting edema negative Homans' sign bilaterally Neuro oriented x3, CN's II-XII intact bilaterally and no sensory deficits noted Sensorium / Orientation: alert Motor Exam: strength 5/5 throughout Psych mental status grossly normal Skin no rashes or lesions noted and skin turgor normal General Skin Exam: Negative for jaundice or pallor MDM MDM MDM Narrative Medical decision making narrative: Patient arrived to the ER hypertensive and tachycardic. She is 6 weeks which is essentially the cutoff where there is concern for preeclampsia. However as her tachycardia and hypotension occurred after bouts of vomiting I feel this is most likely stress response. Her abdomen is soft and nonsurgical so I do not feel the need for a CT scan. However in order to check for laboratory findings concerning for preeclampsia or potential DKA as she is an insulin-dependent diabetic or acute kidney injury or UTI or recurrent complication I did elect to perform basic laboratory studies. Serum test is negative going against complication. Lipase is normal going against acute pancreatitis. Urine sample shows no sign of acute infection. Laboratory studies show no leukocytosis or left shift or elevation to liver enzymes or the uric acid going against a biliary issue or preeclampsia. The patient was hydrated and had no further bouts of symptoms while in the ER. Moreover her blood pressure and heart rate improved spontaneously also going against a preeclamptic event. Therefore as overall workup is negative and she has had improvement of her vitals with simply IV hydration I do not feel there is need for further intervention and she is otherwise safe for discharge. History & Record Review Discussion w/independent historian: Patient Lab Data Attestation: I reviewed the patient's lab results. Labs: Laboratory Results - last 24 hr 01/20/25 01/20/25 01/20/25 22:57 23:02 23:15 WBC 7.4 RBC 4.64 Hgb 12.9 Hct 38.4 MCV 82.8 MCH 27.8 MCHC 33.6 RDW Std Deviation 37.6 RDW Coeff of Linda 12.5 Plt Count 289 MPV 9.6 Immature Gran % (Auto) 0.300 Neut % (Auto) 53.1 Lymph % (Auto) 36.6 [place] % (Auto) 6.1 Eos % (Auto) 3.2 Baso % (Auto) 0.7 Absolute Neuts (auto) 3.9 Absolute Lymphs (auto) 2.71 Nucleated RBC % 0 Sodium 140 Potassium 3.5 Chloride 105 Carbon Dioxide 21.5 Anion Gap 13 BUN 12 Creatinine 0.67 L Estim Creat Clear Calc 132.14 Est GFR (MDRD) Non-Af 121 BUN/Creatinine Ratio 18.5 Glucose 206 H Uric Acid 4.0 Calcium 9.2 Magnesium 1.8 Total Bilirubin 0.23 Direct Bilirubin 0.10 AST 17 ALT 37 H Alkaline Phosphatase 89 Total Protein 6.9 Albumin 3.9 Globulin 3.0 Lipase 29 Serum , Qual NEGATIVE Urine Color Straw Urine Clarity Clear Urine pH 6.0 Ur Specific [place] 1.020 Urine Protein 30 H Urine Glucose (UA) Normal Urine Ketones Negative Urine Occult Blood Negative Urine Nitrite Negative Urine Bilirubin Negative Urine Urobilinogen 1 H Ur Leukocyte Esterase 25 H Urine RBC 0 SEEN Urine WBC 5-10 SEEN Ur Squamous Epith Cells 5-10 SEEN Urine Bacteria RARE Urine Mucus 0 SEEN ABG Data ABG results: ABG 01/20/25 23:[address] Sample Site Not entered VBG pH 7.42 VBG pO2 48 H VBG HCO3 27 H VBG Total CO2 28 VBG O2 Sat (Calc) 84 H VBG Base Excess 2 POC Mix VBG pCO2 Pt Tmp 41.2 O2 Delivery Device Room Air Discharge Plan Triage Chief Complaint: Nausea/Vomiting ED Provider: Elie Mo Dx/Rx/DC Orders Clinical Impression: Nausea and vomiting, Diabetes mellitus type 2, insulin dependent, Bipolar 1 disorder Instructions: ED Vomiting (Adult) Prescriptions: No Action buspirone 15 mg tablet 15 mg PO QDAY albuterol sulfate 90 mcg/actuation HFA aerosol inhaler 1 - 2 puff inhalation PRN PRN (Reason: shortness of breath or wheezing) fluoxetine 20 mg capsule 20 mg PO DAILY HumuLIN N NPH Insulin KwikPen 90 units subcut QHS Rx Instructions: 90 units; insulin lispro [Humalog KwikPen Insulin] 100 unit/mL insulin pen 8 unit subcut TID Primary Care Provider: Jamari Byrne Referrals: Jamari Byrne MD [Primary Care Provider] - Activity Restrictions/Additional Instructions: Please continue all your home medication as directed by your doctor and return to the ER should you have any further concerns or worsening of symptoms Print Language: Chadian Disposition Disposition: Home, Self Care Discharge Date/Time: 01/21/25 00:42
[2025-01-21 00:04] LABS: Squamous Epithelial Cells - UA 5-10 SEEN /hpf (5-10)
[2025-01-21 00:23] VITALS: BP 123/84; PULSE 100; RESP 20; O2SAT 100
[2025-01-21 00:34] VITALS: BP 123/84; PULSE 100; RESP 20; TEMP 36.6; O2SAT 100
[2025-01-21 00:43] LABS: Magnesium 1.8 mg/dL (1.5-2.2); Uric Acid 4.0 mg/dL (2.6-6.0)
[2025-01-21 02:50] LABS: LDH 156 U/L (84-246)
== END 2025-01-21 00:42 | disposition home or self-care (01) ==
PROVIDERS: Anesthesiology; Emergency Provider Emergency Medicine; PCP Family Medicine; Referring Provider Emergency Medicine; Visit Provider Emergency Medicine
DX: R11.2 Nausea with vomiting, unspecified (principal); F31.9 Bipolar disorder, unspecified; E11.9 Type 2 diabetes mellitus without complications; Z79.4 Long term (current) use of insulin; Z90.49 Acquired absence of other specified parts of digestive tract; F17.210 Nicotine dependence, cigarettes, uncomplicated
CPT/HCPCS: 80048; 80076; 81001; 82803; 83036; 83615; 83690; 83735; 84550; 84703; 85025; 96360; 99283

== ENCOUNTER 2025-01-23 21:06 | Emergency (ER) | payer MEDICARE, MEDICAID, SELFPAY ==
[2025-01-23 21:07] VITALS: BP 147/100; PULSE 99; RESP 18; TEMP 36.6; O2SAT 99; BMI 36.6
--- NOTE | 2025-01-23 22:21 | ED.VIS.GI ---
HPI HPI - GI History of Present Illness Chief Complaint: Nausea/Vomiting Nausea/Vomiting/Emesis GI Symptom: Positive for Nausea and Vomiting (X 2 tonight.) Onset: Today Severity: Mild Diarrhea/Melena/Hematochezia GI Symptom: Positive for Diarrhea Stool Quality: Positive for Loose Severity: Mild Associated Symptoms Associated Symptoms: Negative for Dysuria, Frequency, Hematuria or Urgency Narrative Narrative: 29-year-old female history of bipolar diabetes. States that she had nausea vomiting twice tonight. No fever. No abdominal pain. Said her blood sugars have been running around 160. She had a similar episode last week. She has had a prior cholecystectomy. She gave to her child in December. Loose stools. Denies any dysuria. No fever. Currently she said she is not nausea and does not need medications. She is not having any pain. Prior similar symptoms: Yes Recent Illness/Hospitalization: No PFSH PFSH Medical History Wears dentures Wears glasses Bipolar disorder Depression Anxiety Arthritis Gastric reflux Smoker Insulin dependent diabetes mellitus PONV (postoperative nausea and vomiting) Asthma Osteoarthritis Diabetes Home Medications ?Medication ?Instructions ?Recorded ?Last Taken ?Type buspirone 15 mg tablet 15 mg PO QDAY anxiety 02/26/24 12/16/24 History albuterol sulfate 90 mcg/actuation 1 - 2 puff inhalation PRN PRN 11/15/24 11/01/24 15:57 History aerosol inhaler shortness of breath or wheezing fluoxetine 20 mg capsule 20 mg PO DAILY anxiety 11/15/24 12/16/24 History insulin lispro 100 unit/mL 8 unit subcut TID 12/16/24 Unknown History subcutaneous pen (Humalog KwikPen (U-100) Insulin) insulin NPH isoph U-100 human 100 20 unit subcut QHS 01/21/25 Unknown History unit/mL (3 mL) subcutaneous pen (Humulin N NPH U-100 Insulin KwikPen) ondansetron 4 mg disintegrating 4 mg PO Q6H PRN nausea and 01/23/25 Unknown Rx tablet vomiting #7 tabs Allergy/AdvReac Type Severity Reaction Status Date / Time aripiprazole (From Abilify) AdvReac Other Verified 01/23/25 21:07 metoclopramide (From Reglan) AdvReac Other Verified 01/23/25 21:07 ondansetron (From Zofran) AdvReac Vomiting Verified 01/23/25 21:07 quetiapine (From Seroquel) AdvReac Other Verified 01/23/25 21:07 sertraline (From Zoloft) AdvReac Other Verified 01/23/25 21:07 Family History Other Heart disease Hyperlipemia Surgical History History of dilation and curettage History of oral surgery History of cholecystectomy Social History Smoking Status: Current every day smoker tobacco type: cigarettes alcohol intake: never substance use type: does not use ROS ROS ED ROS Narrative Nausea and vomiting. Loose stools. Constitutional Constitutional ED: Denies chills or fever(s) ENT ENT ED: Denies ear pain Cardiovascular Cardiovascular: Denies chest pain Respiratory/Chest Respiratory/Chest: Denies cough or dyspnea Gastrointestinal Gastrointestinal: Reports diarrhea, nausea and vomiting; Denies abdominal pain, constipation or melena Genitourinary Genitourinary ED: Denies dysuria or hematuria Musculoskeletal Musculoskeletal: Denies arthralgias Integumentary Denies abscess Neurologic Neurologic: Denies headache(s) Psychiatric Psychiatric: Denies anxiety Endocrine Endocrinology: Denies polydipsia Hematologic/Lymphatic Hematologic/Lymphatic: Denies easy bleeding Allergic/Immunologic Allergic/Immunologic ED: Denies mouth swelling, tongue swelling or urticaria EXAM Physical Exam Narrative Exam Narrative: Well-appearing 29-year-old female. Vital signs stable afebrile. No acute distress. No family present. H EENT exam pupils round react to light. Moist mucous membranes. Neck nontender no JVD. Lungs clear to auscultation bilaterally. Heart regular rhythm no murmur rate about 100. Chest wall and ribs nontender. Abdomen soft nontender. No peritoneal signs. Patient moving all 4 extremities. Normal strength. Normal range of motion. Nontender no edema. Back nontender. Neurologically she is awake alert. Answering questions and following commands. Benign exam. Const Vital Signs: 01/23/25 21:07 01/23/25 23:07 Temperature 97.8 F Temperature Source Oral Pulse Rate 99 69 Respiratory Rate 18 18 Blood Pressure 147/100 H 136/63 H Blood Pressure Mean 115 87 Pulse Ox 99 97 Oxygen Delivery Method Room Air Room Air Positive well nourished and well developed; Negative for cachectic, contractures or unkempt General Appearance ED: well developed and NAD; Negative for unkempt, cachectic, contractures or pallor Nutritional Appearance: Negative for cachectic HEENT Reports moist mucous membranes normocephalic and atraumatic Eyes PERRL and EOMs intact bilaterally General Eye ED: Negative for pale conjunctiva or scleral icterus Neck no lymphadenopathy, supple and no JVD Resp normal respiratory effort and clear to auscultation bilaterally Cardio regular rate, regular rhythm, S1 normal heart sound, S2 normal heart sound and no murmurs GI no masses Auscultation: normoactive bowel sounds Palpation: soft; Negative for tender, guarding or rebound tenderness present Back/Spine no CVA tenderness Extremity full ROM General Extremety ED: Negative for edema or tenderness General Extremity: Negative for edema Neuro CN's II-XII intact bilaterally and moves all extremities Sensorium / Orientation: alert, oriented to person, oriented to place and oriented to time Motor Exam: strength 5/5 throughout Psych mental status grossly normal and thought process normal Appearance: Negative for unkempt Attitude: No agitated Mood & Affect: Negative for depressed, anxious or tearful Skin no wounds General Skin Exam: Negative for jaundice or pallor Lesions: no lesions Rashes: no rashes MDM MDM MDM Narrative Medical decision making narrative: 29-year-old female with nausea vomiting x 2 tonight. Very benign exam. Clinically does not look significantly dehydrated. She has no abdominal pain I do not think she needs imaging. Screening labs to be obtained and she will be given IV fluids. She was offered but said she did not need any nausea medication at this time. Repeat exam patient is doing well 11:15 PM. We went over her test results. She is comfortable being discharged to home. Fluids and rest. Increase diet slowly as tolerated. Watch her blood sugars closely. Zofran as needed for nausea. History & Record Review Discussion w/independent historian: Patient Additional record(s) reviewed:: Prior inpatient record, Prior outpatient record, Prior ED visit and Prior labs Lab Data Attestation: I reviewed the patient's lab results. Lab results narrative: CBC normal. White count 7. H&H 13 and 37. Platelets 317. Electrolytes unremarkable gap 14. BUN and creatinine of 10 and 0.5. Glucose elevated 229 she has a history of diabetes. Serum test is negative. Labs: Laboratory Results - last 24 hr 01/23/25 22:17 WBC 7.6 RBC 4.57 Hgb 13.0 Hct 37.7 MCV 82.5 MCH 28.4 MCHC 34.5 RDW Std Deviation 37.4 RDW Coeff of Linda 12.5 Plt Count 317 MPV 9.7 Immature Gran % (Auto) 0.100 Neut % (Auto) 60.5 Lymph % (Auto) 29.4 [place] % (Auto) 6.6 Eos % (Auto) 2.6 Baso % (Auto) 0.8 Absolute Neuts (auto) 4.6 Absolute Lymphs (auto) 2.24 Nucleated RBC % 0 Sodium 138 Potassium 3.4 Chloride 102 Carbon Dioxide 21.5 Anion Gap 14 BUN 10 Creatinine 0.55 L Estim Creat Clear Calc 158.08 Est GFR (MDRD) Non-Af 127 BUN/Creatinine Ratio 18.5 Glucose 229 H Calcium 9.2 Serum , Qual NEGATIVE Discharge Plan Triage Chief Complaint: Nausea/Vomiting ED Provider: Ian Rocha Dx/Rx/DC Orders Clinical Impression: Nausea & vomiting, Hyperglycemia due to diabetes mellitus Instructions: ED Diabetic Hyperglycemia, ED Vomiting (Adult) Prescriptions: New ondansetron 4 mg tablet,disintegrating 4 mg PO Q6H PRN (Reason: nausea and vomiting) Qty: 7 0RF No Action buspirone 15 mg tablet 15 mg PO QDAY albuterol sulfate 90 mcg/actuation HFA aerosol inhaler 1 - 2 puff inhalation PRN PRN (Reason: shortness of breath or wheezing) fluoxetine 20 mg capsule 20 mg PO DAILY insulin lispro [Humalog KwikPen Insulin] 100 unit/mL insulin pen 8 unit subcut TID Rx Instructions: ADDITIONAL 5 UNITS IF HIGH CARB MEAL CONSUMED Humulin N NPH Insulin KwikPen 100 unit/mL (3 mL) insulin pen 20 unit subcut QHS Primary Care Provider: Jamari Byrne Referrals: Jamari Byrne MD [Primary Care Provider] - 3-5 Days if not improving Activity Restrictions/Additional Instructions: Plenty of fluids and rest. Zofran as needed for nausea you may swallow it or let dissolve on your tongue. Watch your blood sugars closely tonight they were elevated at 229. Follow-up with your doctor as needed. Print Language: Divehi Disposition Disposition: Home, Self Care
[2025-01-23] MEDS: 0.9% Normal Saline (1000mL) 1,000 ML 999 ML IV (22:24)
--- OUTSIDE RECORDS SUMMARY | 2025-01-23 22:32 | XMS RPT_ITS | CCD ---
Author Organization [facility] Care Team Providers Care Land Surveying Manager Name Role Phone HERNANDEZLESLIEJOSIE Unavailable Unavailable ARMINDA, [...] Admitting Unavailable Pat Kelsey Queenie Attending Unavailable Elie Hernadez Admitting Unavailabl e Elie Hernadez Attending Unavailabl e Arminda, [place] Primary Care Provider Arminda, [place] Primary Care Provider [phone] Alexey, Juno Unavailable Unavailable Unavailable Unavailable Unavailable [...] Sorensen Unavailable Unavailable Oberhauser, Rich L Unavailable [phone] Unavailable Unavailable Unavailable Unavailable KATIANA ROCHA Referring Unavailable KATIANA ROCHA Primary Care Unavailable Jamari Byrne Unavailable Unavailable Unavailable Unavailable Unavailable Unavailable Unavailable Marshall Brown MD Primary Care Provider [phone] MARSHALL BROWN Primary Care Unavailable LAZARA JON [...] Care Unavailable JOANIE HURTADO Attending Unavailable CHAVEZ, JMAARI L Primary Care Unavailable CHAVEZ, JAMARI L Attending Unavailable CHAVEZ, JAMARI L Primary Care Unavailable CHAVEZ, JAMARI L Attending Unavailable CHAVEZ, JAMARI L Primary Care Unavailable Dr. Jamari Byrne MD Primary Care Provider [phone] Leonie Waldron CNM Attending Provider Leonie Waldron CNM Referring Provider POOJA LATHAM Referring Unavailable CHAVEZ, JAMARI L Primary Care Unavailable PAMELA HASKINS Attending Unavailable POOJA LATHAM Referring Unavailable CHAVEZ, JAMARI L Primary Care Unavailable CHAVEZ, JAMARI L Primary Care Unavailable PAMELA HASKINS Attending Unavailable CHAVEZ, JAMARI L Primary Care Unavailable Mariajose Nickerson CNM Attending Provider CHAVEZ, JAMARI L Primary Care Unavailable WILLIAM GRAMAJO Referring Unavailable Jorge SHAFER, Dr. Dukes Attending Provid er Dr. Whit Patel MD Referring Provid er Avila SHAFER, Dr. Thomas Admit Provider Avila SHAFER, Dr. Thomas Attending Provider Dr. William Gramajo MD Referring Provider Mariajose Nickerson CNM Referring Provider CHAVEZ, JAMARI L Primary Care Unavailable CHAVEZ, JAMARI L Primary Care Unavailable REZA DYER Attending Unavailable CHAVEZ, JAMARI L Primary Care Unavailable SIXTO MYERS Attending Unavailable Dr. Elie Mo DO Referring Provider Dr. Elie Mo DO Emergency Provider KESHAV LOVING Attending Unavailable CHAVEZ, JAMARI L Primary Care Unavailable WILLIAM GRAMAJO Referring Unavailable CHAVEZ, JAMARI L Primary Care Unavailable ELIEL, PIPER L Referring Unavailable CHAVEZ, JAMARI L Primary Care Unavailable ELIEL, PIPER L Referring Unavailable CHAVEZ, JAMARI L Primary Care Unavailable KESHAV LOVING Attending Unavailable CHAVEZ, JAMARI L Primary Care Unavailable ELIEL, IPPER L Referring Unavailable CHAVEZ, JAMARI L Primary Care Unavailable WHIT MORTON Attending Unavail able CHAVEZ, JAMARI L Primary Care Unavailable WILLIAM GRAMAJO Attending Unavailable CHAVEZ, JAMARI L Primary Care Unavailable RONALDO RUBIO Attending Unavailable CHAVEZ, JAMARI L Primary Care Unavailable ELIEL, PIPER L Referring Unavailable CHAVEZ, JAMARI L Primary Care Unavailable KESHAV LOVING Attending Unavailable CHAVEZ, JAMARI L Primary Care Unavailable ELIEL, PIPER L Referring Unavailable CHAVEZ, JAMARI L Primary Care Unavailable ELIEL, PIPER L Referring Unavailable CHAVEZ, JAMARI L Primary Care Unavailable KRYS KULKARNI Attending Unavailable ELIEL, PIPER L Referring Unavailable CHAVEZ, JAMARI L Primary Care Unavailable ELIEL, PIPER L Referring Unavailable CHAVEZ, JAMARI L Primary Care Unavailable ZAYDA PARKER Attending Unavailable CHAVEZ, JAMARI L Primary Care Unavailable KELSY GUILLERMO Attending Unavailable WILLIAM GRAMAJO Referring Unavailable CHAVEZ, JAMARI L Primary Care Unavailable WILLIAM GRAMAJO Referring Unavailable CHAVEZ, JAMARI L Primary Care Unavailable POOJA LATHAM Attending Unavailable SELF Referring Unavailable CHAVEZ, JAMARI L Primary Care Unavailable LEONIE WALDRON Attending Unavailable CHAVEZ, JAMARI L Primary Care Unavailable CHAVEZ, JAMARI L Primary Care Unavailable MARY BLACKWELL Attending Unavailable KELSY GUILLERMO Attending Unavailable CHAVEZ, JAMARI L Primary Care Unavailable RONALDO RUBIO Referring Unavailable CHAVEZ, JAMARI L Primary Care Unavailable PIPER JULIAN Attending Unavailable AVILA, KAREDVIN Referring Unavailable CHAVEZ, JAMARI L Primary Care Unavailable PIPER JULIAN Referring Unavailable CHAVEZ, JAMARI L Primary Care Unavailable KELSY GUILLERMO Attending Unavailable CHAEVZ, JAMARI L Primary Care Unavailable WILLIAM GRAMAJO Attending Unavailable CHAVEZ, JAMARI L Primary Care Unavailable ELIELPIPER Referring Unavailable CHAVEZ, JAMARI L Primary Care Unavailable PIPER JULIAN Referring Unavailable CHAVEZ, JAMARI L Primary Care Unavailable KRYS KULKARNI Referring Unavailable CHAVEZ, JAMARI L Primary Care Unavailable CAYLAKRYS ARCE Attending Unavailable CHAVEZ, JAMARI L Primary Care Unavailable CHAVEZ, JAMARI L Primary Care Unavailable HAURY, ZAYDA Referring Unavailable CHAVEZ, JAMARI L Primary Care Unavailable PIPER JULIAN Referring Unavailable CHAVEZ, JAMARI L Primary Care Unavailable AVILA, KARMON Referring Unavailable CHAVEZ, JAMARI L Primary Care Unavailable WILLIAM GRAMAJO Attending Unavailable AVILA, KARMON Referring Unavailable CHAVEZ, JAMARI L Primary Care Unavailable KELSY GUILLERMO Attending Unavailable CHAVEZ, JAMARI L Primary Care Unavailable CAYLAKRYS ARCE Attending Unavailable CHAVEZ, JAMARI L Primary Care Unavailable HAURY, ZAYDA Referring Unavailable CHAVEZ, JAMARI L Primary Care Unavailable PIPER JULIAN Referring Unavailable CHAVEZ, JAMARI L Primary Care Unavailable PIPER JULIAN Attending Unavailable PIPER JULIAN Referring Unavailable CHAVEZ, JAMARI L Primary Care Unavailable CHAVEZ, JAMARI L Primary Care Unavailable WHIT MORTON Attending Unavail able PIPER JULIAN Attending Unavailable AVILA, KARMON Referring Unavailable CHAVEZ, JAMARI L Primary Care Unavailable AVILA, KARMON Referring Unavailable CHAVEZ, JAMARI L Primary Care Unavailable HAURY, ZAYDA Referring Unavailable CHAVEZ, JAMARI L Primary Care Unavailable CARRIE LARSEN Attending Unavailable CHAVEZ, JAMARI L Primary Care Unavailable POOJA LATHAM Referring Unavailable CHAVEZ, JAMARI L Primary Care Unavailable POOJA LATHAM Attending Unavailable HAURY, ZAYDA Referring Unavailable CHAVEZ, JAMARI L Primary Care Unavailable KELSY GUILLERMO Attending Unavailable CHAVEZ, JAMARI L Primary Care Unavailable WILLIAM GRAMAJO Attending Unavailable CHAVEZ, JAMARI L Primary Care Unavailable WILLIAM GRAMAJO Attending Unavailable ZAYDA PARKER Referring Unavailable CHAVEZ, JAMARI L Primary Care Unavailable CARRIE LARSEN Attending Unavailable CHAVEZ, JAMARI L Primary Care Unavailable KELSY GUILLERMO Attending Unavailable CHAVEZ, JAMARI L Primary Care Unavailable WILLIAM GRAMAJO Attending Unavailable WILLIAM GRAMAJO Referring Unavailable CHAVEZ, JAMARI L Primary Care Unavailable Care Physician, No Primary Primary Care Unava ilable Care Physician, No Primary Referring Unava ilable Shreyas Carver Attending Unavailable Chavez, Jamari Primary Care Unavailable Mariajose Nickerson Attending Unavailable Mariajose Nickerson Referring Unavailable Chavez, Jamari Primary Care Unavailable Keshav Loving Admitting Unavailable WiswellFloridaa Attending Unavailable Wiswell, Keshav Referring Unavailable Leonie Waldron Attending Unavailable WaldronRosasLeonie Referring Unavailable Chavez, Jamari Primary Care Unavailable Whit Patel Attending Unavail able Chavez, Jamari Primary Care Unavailable Elie Mo Attending Unavailable AndElie gomez Referring Unavailable Chavez, Jamari Primary Care Unavailable Chavez, Jamari Primary Care Unavailable Mariajose Nickerson Attending Unavailable William Gramajo Admitting Unavailable William Gramajo Attending Unavailable William Gramajo Referring Unavailable Chavez, Jamari Primary Care Unavailable Newatson-Mimi Whit Attending Unavail able Neypaulinat-Schulte, Whit Referring Unavail able Chavez, Jamari Primary Care Unavailable Allergies Allergy Classification Reported Allergen(s) Allergy Type Date of Onset Reaction(s) Facility ARIPiprazole (1 source) ARIPiprazole Drug Allergy Unknown [facility] DOPamine Antagonists (5 sources) Metoclopramide; Translations: [Reglan] Drug Allergy Unknown [facility] Ondansetron (5 sources) Ondansetron; Translations: [Zofran] Drug Allergy Unknown [facility] QUEtiapine (5 sources) QUEtiapine; Translations: [quetiapine] Drug Allergy Unknown [facility] (1 source) No Known Drug Allergies; Translations: [No Known Drug Allergies] Propensity to adverse reactions (disorder) [facility] Repository (1 source) No Known Allergies; Translations: [No Known Allergies] Propensity to adverse reactions (disorder) [facility] Repository (20 sources) Ondansetron; Translations: [Zofran] Drug Allergy 02-06-20 18 Nausea and Vomiting, Vomiting, GI Upset, Other, Unknown, Nausea/vomitin g [facility] (20 sources) Aluminum Hydroxide / Magnesium Hydroxide; Translations: [ALUMINUM-MAGNESIU M HYDROXIDE] Drug Allergy 02-06-20 18 GI Intolerance, Other, GI Upset [facility] (20 sources) Metoclopramide; Translations: [METOCLOPRAMIDE HCL] Drug Allergy 02-11-20 19 Hives, Unknown [facility] (20 sources) Ondansetron; Translations: [ONDANSETRON HCL] Drug Allergy 02-06-20 18 GI Intolerance, Unknown, GI Upset, Other [facility] (20 sources) QUEtiapine; Translations: [QUETIAPINE] Drug Allergy 10-05-19 19 Shortness Of Breath, Unknown, Palpitations, Other: See Comments, [facility] Comment on above: Lethargy (14 sources) Metoclopramide; Translations: [Reglan] Drug Allergy Unknown [facility] Repository (4 sources) Ondansetron; Translations: [ZOFRAN] Drug Allergy Unknown [facility] Repository (20 sources) Sertraline; Translations: [SERTRALINE] Drug Allergy 12-08-19 20 Other, Mental Status Change, Unknown [facility] Repository Comment on above: Suicidal Ideation (20 sources) ARIPiprazole; Translations: [ARIPIPRAZOLE] Drug Allergy 12-14-19 23 Unknown, Mental Status Change [facility] Work Phone: Comment on above: Suicidal Ideation (20 sources) Metoclopramide; Translations: [METOCLOPRAMIDE] Drug Allergy 02-11-20 19 Vomiting, Hives, Nausea/vomitin g, Unknown [facility] Comment on above: Heart palpitations (20 sources) Promethazine; Translations: [PROMETHAZINE] Drug Allergy 07-11-19 24 GI Upset [facility] Work Phone: (1 source) Promethazine Drug Allergy [facility] Repository (1 source) ARIPiprazole Drug Allergy 01-22-20 [facility] Repository (1 source) Metoclopramide Drug Allergy 01-22-20 [facility] Repository (1 source) Ondansetron Drug Allergy 01-22-20 [facility] Repository (1 source) QUEtiapine Drug Allergy 01-22-20 [facility] Repository Medications Current Medications Medication Drug Class(es) Dates Sig (Normalized) Sig (Original) [id number] 200 actuat albuterol 0.09 mg/actuat metered dose inhaler (20 sources) beta2-Adrenergic Agonist Start: 11-15-2024 Albuterol Sulfate 90 mcg/actuation HFA aerosol inhaler Active [...] 5 days. ARIPiprazole 5 mg oral tablet (9 sources) Atypical Antipsychotic Start: 05-05-20 take 1 [...] sources) Mood Stabilizer Start: 07-05-19 End: 07-05-19 22 take 1 tablet by mouth twice daily carBAMazepine (TEGretol XR) 200 MG 12 hr tablet Indications: Seizure (HCC) Take 1 (one) tablet (200 mg total) by mouth 2 (two) times a day . 60 tablet 07/05/2020 Active clobetasol propionate 0.5 mg/ml topical [...] 15, 2024 4:00pm Mood Start: 02-26-2024 FLUoxetine ([place]) 40 mg capsule 04/15/2024 Active Start: [...] Active HumuLIN N NPH Insulin KwikPe n (5 sources) Start: 10-16-2024 HumuLIN N NPH Insulin [...] trimester 58 units at bedtime 10 Each 11 06/11/2024 06/19/2024 Discontinued Start: 06-07-2024 End: 06-11-2024 [...] trimester 15 units at bedtime 5 Each 11 05/03/2024 05/09/2024 Discontinued 3 ml insulin lispro [...] Start: 09-27-2019 take 1 tablet by migue th twice daily metFORMIN HCl - 500 MG [...] Start: 05-05-2018 take 2 tablets by mo ut twice daily at breakfast metFORMIN (GLUCOPHAGE-XR) 500 [...] 09-12-2018 take 1 tablet by migue th at bedtime as needed for nausea metoclopramide [...] Active Start: 07-03-2021 take 1 capsule by [facility] once daily Nitrofurantoin Monohyd Macro 100 [...] pain scores based on patient preference? Yes acyclovir 400 mg oral tablet (20 sources) Herpesvirus Nucleoside Analog DNA Polymerase Inhibitor, Herpes Simplex Virus Nucleoside Analog DNA Polymerase Inhibitor, Herpes Zoster Virus Nucleoside Analog DNA Polymerase Inhibitor Start: 10-04-2024 End: 01-19-2025 take 1 tablet by mouth twice daily Acyclovir 400 mg tablet Discontinued 400 mg PO TWICE A DAY November 15, 2024 12:00am December 16, 2024 8:14pm HSV Start: 04-18-2024 End: 04-18-2024 take 800 mg by mouth once 800 mg, oral, Once, On Fri06/18/23 at 2030, For 1 dose, Coverage: Herpes simplex, Infection Site: Genital Start: 04-18-2024 End: 05-07-2024 take 2 tablets by mouth three times daily acyclovir (ZOVIRAX) 400 mg tablet TAKE 2 TABLETS (800 MG) BY MOUTH 3 TIMES A DAY FOR 2 DAYS. 04/19/2024 05/07/2024 Discontinued albuterol 0.833 mg/ml / ipratropium bromide 0.167 mg/ml inhalant solution (1 source) Anticholinergic, beta2-Adrenergic Agonist Start: 10-06-2018 End: 10-06-2018 ipratropium-albuterol (DUO-NEB) 0.5-2.5 mg/3 ml nebulizer solution 3 mL alogliptin 25 mg oral tablet (9 sources) Start: 01-23-2018 End: 02-26-2024 take 1 [...] Cleanup) Start: 12-08-2023 take 1 capsule by [facility] once daily at bedtime Caplyta 21 mg capsule Take 1 capsule (21 mg) by mouth once daily at bedtime. 12/08/2023 Active cephalexin 500 mg oral capsule (10 sources) Cephalosporin Antibacterial Start: 04-18-2024 End: 04-18-2024 [...] infection in mother during first trimester of (HHS-HCC) Take 1 capsule (500 mg) by mouth [...] 500 mg PO TWICE A DAY 10 0 January 23, 2018 12:00am February 26, 2024 [...] g 0 03/12/2017 09/12/2018 Discontinued Dexcom G4 [place] contract associate (Dexcom G6 Campaign Fundraiser) misc (19 sources) Start: 03-17-2023 End: 05-04-2024 Dexcom G4 paskenta contract associate (Dexcom G6 Campaign Fundraiser) misc Indications: Hyperglycemia due to diabetes mellitus (Multi) Use as instructed 1 each 03/17/2023 05/04/2024 Discontinued (Med List Cleanup) Start: 03-17-2023 Dexcom G4 plat [place]um contract associate (Dexcom G6 Campaign Fundraiser) misc Indications: Hyperglycemia due to diabetes mellitus (Multi) Use as instructed 1 each 03/17/2023 Active Start: 03-17-2023 Dexcom G4 plat inum contract associate (Dexcom G6 Campaign Fundraiser) misc Indications: Hyperglycemia due to diabetes mellitus (CMS/HCC) Use as instructed 1 each 0 03/17/2023 Active Start: 09-09-2022 End: 05-04-2024 Dexcom G4 [place] contract associate (Dexcom G6 Campaign Fundraiser) misc Indications: Hyperglycemia due to diabetes mellitus (Multi) Use as instructed 1 each 09/09/2022 05/04/2024 Discontinued (Med List Cleanup) Start: 09-09-2022 Dexcom G4 plat inum contract associate (Dexcom G6 Campaign Fundraiser) misc Indications: Hyperglycemia due to diabetes mellitus (Multi) Use as instructed 1 each 09/09/2022 Active Start: 09-09-2022 Dexcom G4 plat inum contract associate (Dexcom G6 Campaign Fundraiser) misc Indications: Hyperglycemia due to diabetes mellitus (CMS/HCC) Use as instructed 1 each 0 09/09/2022 Active Dexcom G4 p[place] transmitt er (Dexcom G6 Transmitter) device (12 sources) Start: 05-09-2023 End: 05-04-2024 Dexcom G4 [place] transmitt er (Dexcom G6 Transmitter) device Indications: [...] Active Start: 12-13-2022 End: 05-09-2023 Dexcom G4 p[place] transmitt er (Dexcom G6 Transmitter) device Indications: Hyperglycemia due to diabetes mellitus (CMS/HCC) Apply every 10 days 1 each 11 12/13/2022 05/09/2023 Discontinued (Reorder) Start: 07-07-2023 Dexcom G4 plat inum transmitter (Dexcom G6 Transmitter) device Indications: Hyperglycemia due to diabetes mellitus (CMS/HCC) Apply every 10 days 1 each 11 12/13/2022 Active Start: 09-09-2022 End: 12-13-2022 Dexcom G4 [place] transmitt er (Dexcom G6 Transmitter) device Indications: [...] Macrolide, Macrolide Antimicrobial Start: 12-27-19 End: 01-05-20 21 Erythromycin 5 MG/GM Ophthalmic Ointment APPLY A SMALL AMOUNT OF OINTMENT TO AFFECTED EYE(S) 4 TIMES DAILY AND AT BEDTIME. Quantity: 15 Refills: 11 Ordered: 26-Dec-2020 Rich Ng DO Start : 26-Dec-2020 End : 04-Jan-2021 Complete famotidine 20 mg oral tablet (1 source) Histamine-2 Receptor Antagonist Start: 05-25-20 19 End: 06-08-20 19 take 1 tablet by [...] this medication. fluconazole 150 mg oral tablet (13 sources) Azole Antifungal Start: 02-26-20 End: 10-17-19 [...] 11/03/2024 Discontinued ibuprofen 600 mg oral tablet (6 sources) Nonsteroidal Anti-inflammatory Drug Start: 2016 End: [...] (Side effects) Insulin Nph And Regular Human (12 sources) Insulin Start: 12-13-2016 End: 01-22-2017 Insulin [...] LANGFORD Active lisinopril 2.5 mg oral tablet (12 sources) Angiotensin Converting Enzyme Inhibitor Start: 02-23-2019 [...] 2018 12:00am February 26, 2024 1:48pm Lumateperone (6 sources) Start: 02-26-2024 End: 10-16-2024 take 1 capsule by mouth once daily Lumateperone (Caplyta) 21 mg capsule Discontinued 21 mg PO daily February 26, 2024 12:00am October 16, 2024 5:49pm Start: 02-26-2024 take 1 capsule by [facility] once daily Lumateperone (Caplyta) 21 mg [...] another clinician) QUEtiapine 100 mg oral tablet (6 sources) Atypical Antipsychotic Start: 01-23-2018 End: 02-26-2024 [...] gestation, third trimester] Onset: 12-26-2016 Resolved: 07-11-2023 4 Episodic Esophageal disorders (20 sources) Gastroesophageal reflux disease; Translations: [Esophageal reflux] Onset: 07-11-2022 07-11-2022 Chronic Essential hypertension (20 sources) Hypertensive disorder; Translations: [Unspecified essential hypertension] Onset: 07-14-2017 03-12-2017 Chronic Headache; including migraine (7 sources) Refractory migraine without aura; Translations: [Migraine without aura, intractable, without status migrainosus] Onset: 02-22-2019 02-22-2019 Chronic Headache; including migraine (4 sources) Headache; Translations: [Headache] 12-16-2024 Episodic Immunizations [...] Onset: 07-14-2017 Resolved: 08-15-2017 03-12-2017 Chronic Mycoses (7 sources) Candidiasis of vagina; Translations: [Yeast vaginitis] Episodic Nausea and vomiting (7 sources) Nausea; Translations: [Nausea and vomiting] 12-16-2024 Episodic Osteoarthritis (6 sources) Osteoarthritis; Translations: [Unspecified osteoarthritis, unspecified site] [...] third trimester] 11-05-2024 Episodic Other complications of (1 source) Diseases of the skin and subcutaneous tissue complicating , third trimester; Translations: [ pruritus, third trimester (HCC)] Onset: 11-11-2024 Episodic Other complications of (2 sources) Supervision of high risk , unspecified, third trimester; Translations: [High-risk , third trimester (HCC)] Onset: 10-25-2024 Episodic Other congenital anomalies (10 sources) Congenital anomaly of finger; 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), including shoulder girdle] Onset: 10-28-2016 07-14-2017 Chronic Other congenital anomalies (20 sources) Chromosomal disorder; 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, unspecified] Onset: 05-07-2024 05-07-2024 Chronic Other congenital anomalies (2 sources) Chromosomal abnormality, unspecified; 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)] Onset: 05-26-2024 Chronic Other connective tissue disease [...] perineum] 07-23-2024 Episodic Other female genital disorders (10 sources) Irritable uterus; Translations: [Other specified noninflammatory [...] [Developmental Delay] Onset: 10-28-2016 07-14-2017 Chronic Other and delivery including normal (20 sources) ; Translations: [ state, incidental] Onset: 12-12-2016 Resolved: 07-11-2023 07-11-2023 Episodic Comment on above: BABY: 01/20/2017 37 W EEKS VAGINAL FEMAL 10 LBS 2 OZ; Other screening for suspected conditions (not mental [...] unspecified reason] 09-24-2024 Episodic Residual codes; unclassified (11 sources) Gestation period, 27 weeks; Translations: [27 weeks gestation of ] 09-24-2024 Episodic Residual codes; unclassified (3 sources) Gestation period, 29 weeks; Translations: [29 weeks gestation of ] 10-05-2024 Episodic Residual codes; unclassified (11 sources) Gestation period, 31 weeks; Translations: [31 weeks gestation of ] 10-16-2024 Episodic Residual codes; unclassified (3 sources) Gestation period, 33 weeks; Translations: [33 weeks gestation of ] 11-02-2024 Episodic Residual codes; unclassified (2 sources) Gestation period, 34 weeks; Translations: [34 weeks gestation of ] 11-08-2024 Episodic Residual codes; unclassified (9 sources) Gestation period, 35 weeks; Translations: [35 weeks gestation of ] 11-15-2024 Episodic Residual codes; unclassified (1 source) Gestation period, 36 weeks; Translations: [36 weeks gestation of ] 11-25-2024 Episodic Residual codes; unclassified (1 source) Gestation period, 37 weeks; Translations: [37 weeks gestation of ] 12-02-2024 Episodic Residual codes; unclassified (8 sources) Gestation period, 38 weeks; Translations: [38 weeks gestation of ] 12-06-2024 Episodic Residual codes; unclassified (4 sources) History of past delivery; Translations: [Personal history of other genital system and obstetric disorders] 12-16-2024 Episodic Residual codes; unclassified (1 source) 38 weeks gestation of ; Translations: [38 weeks gestation of (HCC)] Onset: 12-06-2024 Episodic Residual codes; unclassified (1 source) 37 weeks gestation of ; Translations: [37 weeks gestation of (HCC)] Onset: 12-02-2024 Episodic Residual codes; unclassified (1 source) 29 weeks gestation of ; Translations: [29 weeks gestation of (HCC)] Onset: 12-02-2024 Episodic [...] Translations: [33 weeks gestation of (HCC)] Onset: 11-02-2024 Episodic Residual codes; unclassified (1 source) 32 weeks gestation of ; Translations: [32 weeks gestation of (HCC)] Onset: 10-28-2024 Episodic Schizophrenia and other psychotic disorders (9 [...] 09-13-2024 Episodic Other complications of (2 sources) Other [...] macrosomia in infant in prior , currently ([facility])] Onset: 05-07-2024 Episodic Other complications of (1 source) Smoking (tobacco) complicating , first trimester; Translations: [Tobacco smoking complicating in first trimester ([facility])] Onset: 05-07-2024 Episodic Other complications of (2 sources) Other viral diseases complicating , unspecified trimester; Translations: [Herpes simplex type 2 (HSV-2) infection affecting , antepartum, unspecified trimester ([facility])] Onset: 07-13-2024 Episodic Other complications of (1 source) Supervision of high risk , unspecified, second trimester; Translations: [Supervision of high risk in second trimester ([facility])] Onset: 09-24-2024 Episodic Other complications of (2 sources) Supervision of high risk , unspecified, first trimester; Translations: [Encounter for supervision of high risk in first trimester, antepartum ([facility])] Onset: 05-07-2024 Episodic Other complications of (1 source) Other specified related conditions, second trimester; Translations: [Other specified related conditions, second trimester] Onset: 09-29-2024 Episodic Other female genital disorders (20 sources) [...] Onset: 12-23-2016 Resolved: 07-11-2023 07-11-2023 Episodic Other skin disorders (13 sources) Necrobiosis lipoidica; [...] Translations: [Less than 8 weeks gestation of ([facility])] Onset: 04-28-2024 Episodic Residual codes; unclassified (1 source) Personal history of other complications of , childbirth and the puerperium; Translations: [History of pre-eclampsia] Onset: 06-15-2024 Episodic Residual codes; unclassified (1 source) 31 weeks gestation of ; Translations: [31 weeks gestation of ([facility])] Onset: 10-18-2024 Episodic Residual codes; unclassified (1 source) 27 weeks gestation of ; Translations: [27 weeks gestation of (FORMERLY [facility])] Onset: 09-24-2024 Episodic Residual codes; unclassified (1 source) Procedure and treatment not carried out, unspecified reason; Translations: [Procedure not carried out] Onset: 09-24-2024 Episodic Residual codes; unclassified (1 source) 25 weeks gestation of ; Translations: [25 weeks gestation of ([facility])] Onset: 09-08-2024 Episodic Residual codes; unclassified (1 [...] Test Name Value Interpretation Reference Range Facility Hemoglobin A1con 01-21-2025 HbA1c (Bld) [Mass fraction] 6.8 % High <=5.6 [facility] Comment on above: Result Comment: Norm al < 5.7 % Prediabetic 5.7 - 6.4 % Diabetic >or= 6.5 % Please note range changes. Performed By: #### L 501.080 #### [facility] [address] [place], [address] LDHon 01-21-2025 LDH 156 U/L Normal 84-246 [facility] Comment on above: Performed By: #### L 501.080 #### [facility] [address] [place], [address] Magnesiumon 01-21-2025 Magnesium [Mass/Vol] 1.8 mg/dL Normal 1.5-2.2 [facility] Comment on above: Performed By: #### L 501.080 #### [facility] [address] [place], [address] Uric Acidon 01-21-2025 URIC 4.0 mg/dL Normal 2.6-6.0 [facility] Comment on above: Result Comment: The drugs N-Acetylcysteine and Metamizole may falsely depress this assay. Performed By: #### L 501.080 #### [facility] [address] [place], [address] Urinalysis, Completeon 01-21 BACTERIA RARE Normal None Seen [facility] Comment on above: Order Comment: CLEAN CATCH Performed By: #### L 501.080 #### [facility] [address] [place], [address] EPI,SQUAMOUS 5-10 SEEN Normal 5-10 [facility] Comment on above: Order Comment: CLEAN CATCH Performed By: #### L 501.080 #### [facility] [address] [place], [address] WBC 5-10 SEEN Normal 0-5 [facility] Comment on above: Order Comment: CLEAN CATCH Performed By: #### L 501.080 #### [facility] [address] [place], [address] Absolute lymphocyte countOrd ered By: Elie Mo on 08-14-2025 Lymphocytes Auto (Unsp spec) [#/Vol] 2.71 10*3/uL 0.83-4.51 [facility] Absolute neutrophil countOrd ered By: Elie Mo on 01-20-2025 Neutrophils (Bld) [#/Vol] 3.9 10*3/uL 2.0-7.7 [facility] Anion gap in Serum or Plasma Ordered By: Elie Mo on 01-20-2025 Anion gap [Moles/Vol] 13 mmol/L - [facility] Automated lymphocyte count a s percentage of total leukocytesOrdered By: Elie Mo on 01-20-2025 Lymphocytes/100 WBC Auto (Unsp spec) 36.6 % - [facility] BUN/creatinine ratioOrdered By: Elie Mo on 01-20-2025 Urea nitrogen/Creatinine [Mass ratio] 18.5 mg/mg - [facility] Basic Metabolic Profile (BMP )on 01-20-2025 BUN/CRE 18.5 RATIO Normal - [facility] Comment on above: Performed By: #### L 501.080 #### [facility] [address] [place], [address] Calcium [Mass/Vol] 9.2 mg/dL Normal 7.6-11.0 [facility] Comment on above: Performed By: #### L 501.080 #### [facility] [address] [place], [address] Chloride [Moles/Vol] 105 mmol/L Normal 98-108 [facility] Comment on above: Performed By: #### L 501.080 #### [facility] [address] [place], [address] CO2 [Moles/Vol] 21.5 mmol/L Normal 21.0-32.0 [facility] Comment on above: Performed By: #### L 501.080 #### [facility] [address] [place], [address] Creatinine [Mass/Vol] 0.67 mg/dL Low 0.70-1.20 [facility] Comment on above: Performed By: #### L 501.080 #### [facility] [address] [place], [address] ECRCL 132.14 ml/min Normal 50-250 [facility] Comment on above: Performed By: #### L 501.080 #### [facility] [address] [place], [address] GAP 13 Normal 5-15 [facility] Comment on above: Performed By: #### L 501.080 #### [facility] [address] [place], [address] GFR/1.73 sq M.predicted among non-blacks MDRD (S/P/Bld) [Vol rate/Area] 121 mL/min/{1.73_m2} Normal >60 [facility] Comment on above: Result Comment: mL/m in/1.73m2 CKD-EPI Creatinine Equation (2020) Performed By: #### L 501.080 #### [facility] [address] [place], [address] Glucose [Mass/Vol] 206 mg/dL High 70-99 [facility] Comment on above: Performed By: #### L 501.080 #### [facility] [address] [place], [address] Potassium [Moles/Vol] 3.5 mmol/L Normal 3.3-5.1 [facility] Comment on above: Performed By: #### L 501.080 #### [facility] [address] [place], [address] Sodium [Moles/Vol] 140 mmol/L Normal 133-145 [facility] Comment on above: Performed By: #### L 501.080 #### [facility] [address] [place], [address] Urea nitrogen [Mass/Vol] 12 mg/dL Normal 4-19 [facility] Comment on above: Performed By: #### L 501.080 #### [facility] [address] [place], [address] Basophil percentageOrdered B y: Elie Mo on 01-20-2025 Basophils/100 WBC (Bld) 0.7 % 0-1 [facility] Bilirubin Test strip Ql (U)O rdered By: Elie Mo on 01-20-2025 Bilirubin Ql (U) Negative Negative [facility] Bilirubin directOrdered By: Elieshalom Mo on 01-20-2025 Bilirubin.direct [Mass/Vol] 0.10 mg/dL 0.00-0.30 [facility] Bilirubin, totalOrdered By: Elie Mo on 01-20-2025 Bilirubin [Mass/Vol] 0.23 mg/dL 0.00-1.30 [facility] CBC W/Diff, Automatedon 01-07-2024 Absolute Lymph 2.71 X10 3/uL Normal 0.83-4.51 [facility] Comment on above: Performed By: #### L 501.080 #### [facility] [address] [place], [address] Absolute Neut 3.9 X10 3/uL Normal 2.0-7.7 [facility] Comment on above: Performed By: #### [id number] #### [facility] [address] [place], [address] Basophils/100 WBC (Bld) 0.7 % Normal 0-1 [facility] Comment on above: Performed By: #### [id number] #### [facility] [address] [facility] [place], [address] Eosinophils/100 WBC (Bld) 3.2 % Normal 0-5 [facility] Comment on above: Performed By: #### L 501.080 #### [facility] [address] [place], [address] Erythrocyte distribution width (RBC) [Ratio] 12.5 % Normal 11.6-14.6 [facility] Comment on above: Performed By: #### L 501.080 #### [facility] [address] [place], [address] Hematocrit (Bld) [Volume fraction] 38.4 % Normal 37-47 [facility] Comment on above: Performed By: #### L 501.080 #### [facility] [address] [place], [address] Hemoglobin (Bld) [Mass/Vol] 12.9 g/dL Normal 12.0-15.0 [facility] Comment on above: Performed By: #### L 501.080 #### [facility] [address] [place], [address] IG% 0.300 Normal 0.0-0.9 [facility] Comment on above: Result Comment: IG% - Immature Granulocytes (promyelocytes, myelocytes and metamyelocytes) > 1% indicates that a LEFT SHIFT is Present. Performed By: #### L 501.080 #### [facility] [address] [place], [address] Lymphocytes/100 WBC (Bld) 36.6 % Normal 19-41 [facility] Comment on above: Performed By: #### L 501.080 #### [facility] [address] [place], [address] MCH (RBC) [Entitic mass] 27.8 pg Normal 27.0-32.0 [facility] Comment on above: Performed By: #### L 501.080 #### [facility] [address] [place], [address] MCHC (RBC) [Mass/Vol] 33.6 g/dL Normal 32-36 [facility] Comment on above: Performed By: #### L 501.080 #### [facility] [address] [place], [address] MCV (RBC) [Entitic vol] 82.8 fL Normal 81-99 [facility] Comment on above: Performed By: #### L 501.080 #### [facility] [address] [place], [address] Monocytes/100 WBC (Bld) 6.1 % Normal 0-10 [facility] Comment on above: Performed By: #### L 501.080 #### [facility] [address] [place], [address] Neutrophils/100 WBC (Bld) 53.1 % Normal 47-70 [facility] Comment on above: Performed By: #### L 501.080 #### [facility] [address] [place], [address] Nucleated RBC (Bld) [#/Vol] 0 10*3/uL Normal 0-5 [facility] Comment on above: Performed By: #### L 501.080 #### [facility] [address] [place], [address] Platelet mean volume (Bld) [Entitic vol] 9.6 fL Normal 6.2-12.0 [facility] Comment on above: Performed By: #### L 501.080 #### [facility] [address] [place], [address] Platelets (Bld) [#/Vol] 289 10*3/uL Normal 150-450 [facility] Comment on above: Performed By: #### L 501.080 #### [facility] [address] [place], [address] RBC (Bld) [#/Vol] 4.64 10*6/uL Normal 4.2-5.4 [facility] Comment on above: Performed By: #### L 501.080 #### [facility] [address] [place], [address] RDW SD 37.6 fl Normal 35.1-43.9 [facility] Comment on above: Performed By: #### L 501.080 #### [facility] [address] [place], [address] WBC (Bld) [#/Vol] 7.4 10*3/uL Normal 4.4-11.0 [facility] Comment on above: Performed By: #### L 501.080 #### [facility] [address] [place], [address] CNOVon 01-20-2025 CNOV Normal [facility] CO2 (BldV) [Moles/Vol]Ordere d By: Elie Mo on 01-20-2025 CO2 [Moles/Vol] 28 mmol/L 23-33 [facility] Carbon dioxide, total [Moles /volume] in Central venous bloodOrdered By: Elie Mo on 01-20-2025 CO2 [Moles/Vol] 21.5 mmol/L 21.0-32.0 [facility] Chloride assayOrdered By: Lucia Mo on 01-20-2025 Chloride [Moles/Vol] 105 mmol/L 98-108 [facility] Emergency Department Summary on 01-20-2025 Emergency Department Summary [facility] Medical Records Department [address] [place] [address] Emergency Department Summary 01/20/25 MR#: [id number] Acct: [id number] Name: MELISSA BYRNE Rep #: [id number] : 1995 29 From: Elie Mo DO PCP: Dr. Jamari Byrne MD Status:DEP ER Location: ED HPI History of Present Illness Chief Complaint: Nausea/Vomiting Informant: patient Narrative Narrative: Patient is a 29-year-old female with past medical history of insulin-dependent type 2 diabetes and bipolar disorder. She states she is approximately 6 weeks . She states she delivered at 38 weeks via vaginal delivery. She states she and the baby stayed roughly 1 to 2 days in the hospital and then were discharged home. She states she has been doing well other than the generalized fatigue that comes with caring for her . This evening she was feeling extremely fatigued and took a bath. She states she fell asleep in the bath. Then she awoke with waves of nausea followed by bouts of vomiting. She states that there has been no fevers or chills. She denies any diarrhea or dysuria. She denies any known sick contact. She states there is no discoloration or blood in the emesis. However she did check her sugar she reports that it was elevated and that coupled with her bouts of nausea and vomiting concerned her and therefore she presents for evaluation [facility] Medical History Seizures Asthma Osteoarthritis Diabetes Home [...] Time aripiprazole (From Abilify) AdvReac Other Verified 01/20/25 22:24 metoclopramide (From Reglan) AdvReac Other Verified 01/20/25 22:24 ondansetron (From Zofran) AdvReac Vomiting Verified 01/20/25 22:24 quetiapine (From Seroquel) AdvReac Other Verified 01/20/25 22:24 sertraline (From Zoloft) AdvReac Other Verified 01/20/25 22:24 Family History Other Heart disease Hyperlipemia Surgical History History of dilation and curettage History of oral surgery History of cholecystectomy Social History Smoking Status: Current every day smoker tobacco type: cigarettes alcohol intake: never substance use type: does not use ROS ROS ED Constitutional Constitutional ED: Reports other Details: Positive generalized fatigue ; Denies chills or fever(s) Eyes Eyes: Denies change in vision ENT ENT ED: Denies sore throat Cardiovascular Cardiovascular: Denies chest pain or palpitations Respiratory/Chest Respiratory/Chest: Denies cough or dyspnea Gastrointestinal Gastrointestinal: Reports nausea and vomiting; Denies abdominal pain or diarrhea Genitourinary Genitourinary ED: Denies dysuria or hematuria Musculoskeletal Musculoskeletal: Denies myalgias Integumentary Denies rash Neurologic Neurologic: Denies headache(s) Hematologic/Lymphatic Hematologic/Lymphatic: Denies easy bleeding or easy bruising EXAM Physical Exam Const Vital Signs: 01/20/25 22:32 01/21/25 00:23 01/21/25 00:34 Temperature 97.5 F L 97.9 F Temperature Source Oral Pulse Rate 133 H 100 100 Respiratory Rate 24 H 20 H 20 H Blood Pressure 145/92 H 123/84 H 123/84 H Blood Pressure Mean 109 97 97 Pulse Ox 100 100 100 Oxygen Delivery Method Room Air Positive well nourished, well developed and obese General Appearance ED: well developed; Negative for pallor Nutritional Appearance: obese HEENT Reports moist mucous membranes HEENT Narrative: Normocephalic atraumatic No tongue or lip swelling no oral lesions no airway edema or compromise; no secondary findings in the posterior pharynx to suggest infection Eyes PERRL and EOMs intact bilaterally General Eye ED: Negative for scleral icterus Neck supple Neck Narrative: No nuchal rigidity or meningeal signs Resp normal respiratory effort and clear to auscultation bilaterally Cardio regular rhythm Rate: tachycardic and other Other Details: Tachycardic rate with regular rhythm No murmurs rubs or gallop (more content not included)... Normal [facility] Eosinophil percentageOrdered By: Elie Mo on 01-20-2025 Eosinophils/100 WBC (Bld) 3.2 % 0-5 [facility] Erythrocyte distribution wid th ratioOrdered By: Elie Mo on 01-20-2025 Erythrocyte distribution width (RBC) [Ratio] 12.5 % 11.6-14.6 [facility] Erythrocyte distribution wid th standard deviationOrdered By: Elie Mo on 01-20-2025 Erythrocyte distribution width (RBC) [Ratio] 37.6 fl 35.1-43.9 [facility] Glomerular filtration rate ( GFR) estimation/1.73 sq m using serum, plasma, or whole bOrdered By: Elie Mo on 01-20-2025 GFR/1.73 sq M.predicted among non-blacks MDRD (S/P/Bld) [Vol rate/Area] 121 mL/min/{1.73_m2} >60 [facility] Comment on above: mL/min/1.73m2 CKD-EP I Creatinine Equation (2020) HEMOGLOBIN A1C (POC)on 01-20 HbA1c (Bld) [Mass fraction] 7.1 % Abnormal 4.3 - 5.6 % [facility] Comment on above: Location:[facility], [address] [place] [address] Point of care (POC) Hemoglobin A1c (HGBA1C) [...] specific diabetes management situations: The POC device gasoline catalyst operator provides a normal range of 4.2% to 6.5% for the HGBA1C POC test. However, the [employer] guidelines indicate that patients with [...] Interpretation and review of laboratory results Abnormal [facility] Hematocrit Auto (Bld) [Volum e fraction]Ordered By: Elie Mo on 01-20-2025 Hematocrit (Bld) [Volume fraction] 38.4 % 37-47 [facility] Hemoglobin measurementOrdere d By: Elie Mo on 01-20-2025 Hemoglobin (Bld) [Mass/Vol] 12.9 g/dL 12.0-15.0 [facility] Immature granulocytes/100 WB C Auto (Bld)Ordered By: Elie Mo on 01-20-2025 Immature granulocytes/100 WBC (Bld) 0.300 % 0.0-0.9 [facility] Comment on above: IG% - Immature Granu locytes (promyelocytes, myelocytes and metamyelocytes) > 1% indicates that a LEFT SHIFT is Present. Ketones Test strip Ql (U)Ord ered By: Elie Mo on 01-20-2025 Ketones Ql (U) Negative Negative [facility] - Chemistry and C hemistry - challengeOrdered By: Elie Mo on 01-20-2025 AST [Catalytic activity/Vol] 17 U/L <32 [facility] Lipaseon 01-20-2025 Lipase [Catalytic activity/Vol] 29 U/L Normal 13-75 [facility] Comment on above: Result Comment: Carson barker note: LIPASE revised reference range effective 22. New Lipase methodology. Expected to produce lower values than the previous assay method. NEW Reference Range: 13 - 75 U/L Performed By: #### L 501.080 #### [facility] [address] [place], [address] Lipase measurementOrdered By : Elie Mo on 01-20-2025 Lipase [Catalytic activity/Vol] 29 U/L 13-75 [facility] Comment on above: Please note:LIPASE r evised reference range effective 22. New Lipase methodology. Expected to produce lower values than the previous assay method. NEW Reference Range: 13 - 75 U/L Liver Profileon 01-20-2025 Albumin [Mass/Vol] 3.9 g/dL Normal 3.5-5.0 [facility] Comment on above: Performed By: #### L 501.080 #### [facility] [address] [place], [address] ALK PHOS 89 U/L Normal 35-104 [facility] Comment on above: Performed By: #### L 501.080 #### [facility] [address] [place], [address] ALT [Catalytic activity/Vol] 37 U/L High <=34 [facility] Comment on above: Performed By: #### L [id number] #### [facility] [address] [place], [address] AST [Catalytic activity/Vol] 17 U/L Normal <=31 [facility] Comment on above: Performed By: #### L [id number] #### [facility] [address] [place], [address] Bilirubin [Mass/Vol] 0.23 mg/dL Normal 0.00-1.30 [facility] Comment on above: Performed By: #### L [id number] #### [facility] [address] [place], [address] Bilirubin.direct [Mass/Vol] 0.10 mg/dL Normal 0.00-0.30 [facility] Comment on above: Performed By: #### L [id number] #### [facility] [address] [place], [address] Globulin (S) [Mass/Vol] 3.0 g/dL Normal 2.2-4.2 [facility] Comment on above: Performed By: #### L 501.080 #### [facility] [address] [place], [address] T PROT 6.9 g/dL Normal 5.9-8.4 [facility] Comment on above: Performed By: #### L 501.080 #### [facility] [address] [place], [address] MCV (mean corpuscular volume ) determinationOrdered By: Elie Mo on 01-20-2025 MCV (RBC) [Entitic vol] 82.8 fL 81-99 [facility] Mean corpuscular hemoglobin (MCH) determinationOrdered By: Elie Mo on 01-20-2025 MCH (RBC) [Entitic mass] 27.8 pg 27.0-32.0 [facility] Mean corpuscular hemoglobin concentration (MCHC) determinationOrdered By: Elie Mo on 01-20-2025 MCHC (RBC) [Mass/Vol] 33.6 g/dL 32-36 [facility] Mean platelet volume determi nationOrdered By: Elie Mo on 01-20-2025 Platelet mean volume (Bld) [Entitic vol] 9.6 fL 6.2-12.0 [facility] Microscopic analysis of urin e for red blood cells (RBC)Ordered By: Elie Mo on 01-20-2025 Microscopic analysis of urine for red blood cells (RBC) 0 SEEN /hpf 0-5 [facility] Monocyte percentageOrdered B y: Elie Mo on 01-20-2025 Monocytes/100 WBC (Bld) 6.1 % 0-10 [facility] Mucus LM Ql (Urine sed)Order ed By: Elie Mo on 01-20-2025 Mucus Ql (Urine sed) 0 SEEN /hpf [facility] Neutrophil percentageOrdered By: Elie Mo on 01-20-2025 Neutrophils/100 WBC (Bld) 53.1 % 47-70 [facility] Nitrite Test strip Ql (U)Ord ered By: Elie Mo on 01-20-2025 Nitrite Ql (U) Negative Negative [facility] No Panel InformationOrdered By: Elie Mo on 01-20-2025 Blood Gas Sample Site Not entered [facility] Blood Gas Specimen Type RD [facility] Oxygen Delivery Device Room Air [facility] Nucleated red blood cell per centageOrdered By: Elie Mo on 01-20-2025 Nucleated RBC/100 WBC (Bld) [Ratio] 0 % 0-5 [facility] Platelet countOrdered By: Lucia Mo on 01-20-2025 Platelets (Bld) [#/Vol] 289 10*3/uL 150-450 [facility] Potassium measurement (mass/ volume)Ordered By: Elie Mo on 01-20-2025 Potassium (Unsp spec) [Mass/Vol] 3.5 mmol/L 3.3-5.1 [facility] ,Serum,hCG Quali.on 01-20-2025 HCG, SERUM QUAL Negative Normal [facility] Comment on above: Performed By: #### L 501.080 #### [facility] [address] [place], [address] Protein Test strip Ql (U)Ord ered By: Elie Mo on 01-20-2025 Protein Ql (U) 30 mg/dl High Negative [facility] RBC Auto (Bld) [#/Vol]Ordere d By: Elie Mo on 01-20-2025 RBC (Bld) [#/Vol] 4.64 10*6/uL 4.2-5.4 [facility] Serum beta-hCG test, qualita tiveOrdered By: Elie Mo on 01-20-2025 Beta HCG ( test) Ql Negative [facility] Serum creatinine measurement (mass/volume)Ordered By: Elie Mo on 01-20-2025 Creatinine [Mass/Vol] 0.67 mg/dL Low 0.70-1.20 [facility] Serum globulin measurementOr dered By: Elie Mo on 01-20-2025 Globulin (S) [Mass/Vol] 3.0 g/dL 2.2-4.2 [facility] Serum glucose measurement (m ass/volume)Ordered By: Elie Mo on 01-20-2025 Glucose [Mass/Vol] 206 mg/dL High 70-99 [facility] Serum or plasma alanine schafer otransferase (ALT) measurementOrdered By: Elie Mo on 01-20-2025 ALT [Catalytic activity/Vol] 37 U/L High <35 [facility] Serum or plasma albumin patrick urement (mass/volume)Ordered By: Elie Mo on 01-20-2025 Albumin [Mass/Vol] 3.9 g/dL 3.5-5.0 [facility] Serum or plasma alkaline anaid sphatase measurementOrdered By: Elie Mo on 01-20-2025 ALP [Catalytic activity/Vol] 89 U/L 35-104 [facility] Serum or plasma calcium patrick urement (mass/volume)Ordered By: Elie Mo on 01-20-2025 Calcium [Mass/Vol] 9.2 mg/dL 7.6-11.0 [facility] Serum or plasma urea nitroge n measurement (mass/volume)Ordered By: Elie Mo on 01-20-2025 Urea nitrogen [Mass/Vol] 12 mg/dL 4-19 [facility] Sodium levelOrdered By: Irving Mo on 01-20-2025 Sodium [Moles/Vol] 140 mmol/L 133-145 [facility] Squamous epithelial cells de tection in urine sediment by light microscopyOrdered By: Elie Mo on 01-20-2025 Epithelial cells.squamous LM Ql (Urine sed) 5-10 SEEN /hpf 5-10 [facility] Total proteinOrdered By: Khoa Mo on 01-20-2025 Protein [Mass/Vol] 6.9 g/dL 5.9-8.4 [facility] Urinalysis, Completeon 01-20 BILIRUBIN URINE Negative Normal Negative [facility] Comment on above: Order Comment: CLEAN CATCH Performed By: #### L 501.080 #### [facility] [address] [place], [address] Clarity (U) Clear Normal Clear [facility] Comment on above: Order Comment: CLEAN CATCH Performed By: #### L 501.080 #### [facility] [address] [place], [address] Color (U) Straw Normal Yellow [facility] Comment on above: Order Comment: CLEAN CATCH Performed By: #### L 501.080 #### [facility] [address] [place], [address] GLUCOSE, UR Normal Normal Normal [facility] Comment on above: Order Comment: CLEAN CATCH Performed By: #### L 501.080 #### [facility] [address] [place], [address] KETONE UR Negative Normal Negative [facility] Comment on above: Order Comment: CLEAN CATCH Performed By: #### L 501.080 #### [facility] [address] [place], [address] LEUK ESTERASE 25 /ul Abnormal Negative [facility] Comment on above: Order Comment: CLEAN CATCH Performed By: #### L 501.080 #### [facility] [address] [place], [address] Nitrite Ql (U) Negative Normal Negative [facility] Comment on above: Order Comment: CLEAN CATCH Performed By: #### L 501.080 #### [facility] [address] [place], [address] OCCULT BLOOD-UR Negative Normal Negative [facility] Comment on above: Order Comment: CLEAN CATCH Performed By: #### L 501.080 #### [facility] [address] [place], [address] pH UR 6.0 Normal 5.0 - 8.0 [facility] Comment on above: Order Comment: CLEAN CATCH Performed By: #### L 501.080 #### [facility] [address] [place], [address] PROT DIPSTX 30 mg/dl Abnormal Negative [facility] Comment on above: Order Comment: CLEAN CATCH Performed By: #### L 501.080 #### [facility] [address] [place], [address] SP.GR. DIPSTX 1.020 Normal 1.002-1.030 [facility] Comment on above: Order Comment: CLEAN CATCH Performed By: #### L 501.080 #### [facility] [address] [place], [address] UROBILI 1 mg/dl Abnormal Normal [facility] Comment on above: Order Comment: CLEAN CATCH Performed By: #### L 501.080 #### [facility] [address] [place], [address] Mucus Ql (Urine sed) [address] [facility] Comment on above: Order Comment: CLEAN CATCH Performed By: #### L 501.080 #### [facility] [address] [place], [address] RBC 0 SEEN Normal 0-5 [facility] Comment on above: Order Comment: CLEAN CATCH Performed By: #### L 501.080 #### [facility] [address] [place], [place], [address] Urine clarityOrdered By: Khoa Mo on 01-20-2025 Clarity (U) Clear Clear [facility] Urine color determinationOrd ered By: Elie Mo on 01-20-2025 Color (U) Straw Yellow [facility] Urine glucose detectionOrder ed By: Elie Mo on 01-20-2025 Glucose Ql (U) Normal mg/dl Normal [facility] Urine leukocyte esterase det ection by dipstickOrdered By: Elie Mo on 01-20-2025 Leukocyte esterase Test strip Ql (U) 25 /ul High Negative [facility] Urine pHOrdered By: Elie johnsons on 01-20-2025 pH (U) 6.0 [pH] 5.0 - 8.0 [facility] Urine sediment bacteria coun t by microscopy (number/high power field)Ordered By: Elie Mo on 01-20-2025 Bacteria LM.HPF (Urine sed) [#/Area] RARE /hpf None Seen [facility] Urine specific gravity measu rementOrdered By: Elie Mo on 01-20-2025 Specific gravity (U) [Rel density] 1.020 1.002-1.030 [facility] Urine urobilinogen measureme ntOrdered By: Elie Mo on 01-20-2025 Urobilinogen Ql (U) 1 mg/dl High Normal [facility] Venous Blood Gason Blood Gas Type RD Normal [facility] Comment on above: Performed By: #### L 501.080 #### [facility] [address] [place], [address] CO2 [Moles/Vol] 28 mmol/L Normal 23-33 [facility] Comment on above: Performed By: #### L 501.080 #### [facility] [address] [place], [address] HCO3 (Bld) [Moles/Vol] 27 mmol/L High 22-26 [facility] Comment on above: Performed By: #### L 501.080 #### [facility] [address] [place], [address] O2 Delivery Dev Room Air Normal [facility] Comment on above: Performed By: #### L 501.080 #### [facility] [address] [place], [address] SITE Not entered Normal [facility] Comment on above: Performed By: #### L 501.080 #### [facility] [address] [place], [address] VBG BE 2 mmol/L Normal -1.0-3.5 [facility] Comment on above: Performed By: #### L 501.080 #### [facility] [address] [place], [address] VBG pCO2 41.2 mmHg Normal 41-51 [facility] Comment on above: Performed By: #### L 501.080 #### [facility] [address] [place], [address] VBG pH 7.42 Normal 7.32-7.42 [facility] Comment on above: Performed By: #### L 501.080 #### [facility] [address] [place], [address] VBG PO2 48 mmHg High 25-40 [facility] Comment on above: Performed By: #### L 501.080 #### [facility] [address] [place], [place], [address] VBG SO2 84 High 50-70 [facility] Comment on above: Performed By: #### L 501.080 #### [facility] [address] [place], [place], [address] Venous blood base excess brigitte surementOrdered By: Elie Mo on 01-20-2025 Base excess Calc (BldV) [Moles/Vol] 2 mmol/L -1.0-3.5 [facility] Venous blood bicarbonate brigitte surementOrdered By: Elie Mo on 01-20-2025 HCO3 (Bld) [Moles/Vol] 27 mmol/L High 22-26 [facility] Venous blood oxygen saturati on measurementOrdered By: Elie Mo on 01-20-2025 Oxygen saturation in Blood 84 % High 50-70 [facility] Venous blood pH measurementO rdered By: Elie Mo on 01-20-2025 pH (BldV) 7.42 [pH] 7.32-7.42 [facility] Venous blood partial pressur e of carbon dioxide measurementOrdered By: Elie Mo on 01-20-2025 CO2 (BldV) [Partial pressure] 41.2 mm[Hg] 41-51 [facility] Venous blood partial pressur e of oxygen measurementOrdered By: Elie Mo on 01-20-2025 Oxygen (BldV) [Partial pressure] 48 mm[Hg] High 25-40 [facility] White blood cell (WBC) count Ordered By: Elie Mo on 01-20-2025 WBC (Bld) [#/Vol] 7.4 10*3/uL 4.4-11.0 [facility] White blood cell countOrdere d By: Elie Mo on 01-20-2025 White blood cell count 5-10 SEEN /hpf 0-5 [facility] HISTORY PHYSICALon HISTORY PHYSICAL Normal Konrad [place]and AST(SGOT)on 12-16-2024 AST [Catalytic activity/Vol] 17 U/L Normal <=31 [facility] Comment on above: Performed By: #### L 501.080 #### [facility] [address] [place], [address] Alanine Aminotransferas (SGP T)on 12-16-2024 ALT [Catalytic activity/Vol] 24 U/L Normal <=34 [facility] Comment on above: Performed By: #### L 501.080 #### [facility] [address] [place], [address] Bedside Glucoseon 12-16-2024 FINGERSTICK GLU 115 mg/dL High 74-106 [facility] Comment on above: Result Comment: ELLEN ZAMBRANO OF PATIENT CARE PER NURSING PROTOCOL Performed By: #### L 501.080 #### [facility] [address] [place], [address] CBC-Complete Blood Cnt No Di ffon 12-16-2024 Erythrocyte distribution width (RBC) [Ratio] 12.7 % Normal 11.6-14.6 [facility] Comment on above: Performed By: #### L 501.080 #### [facility] [address] [place], [address] Hematocrit (Bld) [Volume fraction] 38.6 % Normal 37-47 [facility] Comment on above: Performed By: #### L 501.080 #### [facility] [address] [place], [address] Hemoglobin (Bld) [Mass/Vol] 12.9 g/dL Normal 12.0-15.0 [facility] Comment on above: Performed By: #### L 501.080 #### [facility] [address] [place], [address] MCH (RBC) [Entitic mass] 28.4 pg Normal 27.0-32.0 [facility] Comment on above: Performed By: #### L 501.080 #### [facility] [address] [place], [address] MCHC (RBC) [Mass/Vol] 33.4 g/dL Normal 32-36 [facility] Comment on above: Performed By: #### L 501.080 #### [facility] [address] [place], [address] MCV (RBC) [Entitic vol] 85.0 fL Normal 81-99 [facility] Comment on above: Performed By: #### L 501.080 #### [facility] [address] [place], [address] Platelet mean volume (Bld) [Entitic vol] 9.3 fL Normal 6.2-12.0 [facility] Comment on above: Performed By: #### L 501.080 #### [facility] [address] [place], [address] Platelets (Bld) [#/Vol] 378 10*3/uL Normal 150-450 [facility] Comment on above: Performed By: #### L 501.080 #### [facility] [address] [place], [address] RBC (Bld) [#/Vol] 4.54 10*6/uL Normal 4.2-5.4 [facility] Comment on above: Performed By: #### L 501.080 #### [facility] [address] [place], [address] RDW SD 38.8 fl Normal 35.1-43.9 [facility] Comment on above: Performed By: #### L 501.080 #### [facility] [address] [place], [address] WBC (Bld) [#/Vol] 8.3 10*3/uL Normal 4.4-11.0 [facility] Comment on above: Performed By: #### L 501.080 #### [facility] [address] [place], [address] CNPNon 12-16-2024 CNPN Normal [facility] Erythrocyte distribution wid th ratioOrdered By: Mariajose Nickerson on 12-16-2024 Erythrocyte distribution width (RBC) [Ratio] 12.7 % 11.6-14.6 [facility] Erythrocyte distribution wid th standard deviationOrdered By: Mariajose Nickerson on 12-16-2024 Erythrocyte distribution width (RBC) [Ratio] 38.8 fl 35.1-43.9 [facility] Glomerular filtration rate ( GFR) estimation/1.73 sq m using serum, plasma, or whole bOrdered By: Mariajose Nickerson on 12-16-2024 GFR/1.73 sq M.predicted among non-blacks MDRD (S/P/Bld) [Vol rate/Area] 126 mL/min/{1.73_m2} >60 [facility] Comment on above: mL/min/1.73m2 CKD-EP I Creatinine Equation (2020) [facility] deOrdered By: Mariajose Nickerson on 12-16-2024 Glucose [Mass/Vol] 115 mg/dL High 74-106 [facility] Comment on above: MANAGEMENT OF PATIEN T CARE PER NURSING PROTOCOL Hematocrit Auto (Bld) [Volum e fraction]Ordered By: Mariajose Nickerson on 12-16-2024 Hematocrit (Bld) [Volume fraction] 38.6 % 37-47 [facility] Hemoglobin measurementOrdere d By: Mariajose Nickerson on 12-16-2024 Hemoglobin (Bld) [Mass/Vol] 12.9 g/dL 12.0-15.0 [facility] - Chemistry and C hemistry - challengeOrdered By: Mariajose Nickerson on 12-16-2024 AST [Catalytic activity/Vol] 17 U/L <32 [facility] MCV (mean corpuscular volume ) determinationOrdered By: Mariajose Nickerson on 12-16-2024 MCV (RBC) [Entitic vol] 85.0 fL 81-99 [facility] Mean corpuscular hemoglobin (MCH) determinationOrdered By: Mariajose Nickerson on 12-16-2024 MCH (RBC) [Entitic mass] 28.4 pg 27.0-32.0 [facility] Mean corpuscular hemoglobin concentration (MCHC) determinationOrdered By: Mariajose Nickerson on 12-16-2024 MCHC (RBC) [Mass/Vol] 33.4 g/dL 32-36 [facility] Mean platelet volume determi nationOrdered By: Mariajose Nickerson on 12-16-2024 Platelet mean volume (Bld) [Entitic vol] 9.3 fL 6.2-12.0 [facility] OB Triage Physician Noteon 0 12-16-2024 OB Triage Physician Note [facility] Medical Records Department [address] [place] [address] OB Triage Physician Note 12/16/242022 MR#: [id number] Acct: [id number] Name: MELISSA BYRNE Rep #: [id number] : 1995 29 From: Mariajose Nickerson CNM PCP: Dr. Jamari Byrne MD Status:REG CLI Y Location: [place] [id number] HPI - General HPI Narrative MELISSA BYRNE, [...] Nickerson; Dr. Jamari Byrne MD Signed Normal [facility] Platelet countOrdered By: Tamera Nickerson on 12-16-2024 Platelets (Bld) [#/Vol] 378 10*3/uL 150-450 [facility] RBC Auto (Bld) [#/Vol]Ordere d By: Mariajose Nickerson on 12-16-2024 RBC (Bld) [#/Vol] 4.54 10*6/uL 4.2-5.4 [facility] Serum Creatinine AND GFRon 0 12-16-2024 Creatinine [Mass/Vol] 0.57 mg/dL Low 0.70-1.20 [facility] Comment on above: Performed By: #### L 501.080 #### [facility] [address] [place], [place], [address] ECRCL 250.08 ml/min High 50-250 [facility] Comment on above: Performed By: #### L 501.080 #### [facility] [address] [place], [address] GFR/1.73 sq M.predicted among non-blacks MDRD (S/P/Bld) [Vol rate/Area] 126 mL/min/{1.73_m2} Normal >60 [facility] Comment on above: Result Comment: mL/m in/1.73m2 CKD-EPI Creatinine Equation (2020) Performed By: #### L 501.080 #### [facility] [address] [place], [place], [address] Serum creatinine measurement (mass/volume)Ordered By: Mariajose Nickerson on 12-16-2024 Creatinine [Mass/Vol] 0.57 mg/dL Low 0.70-1.20 [facility] Serum or plasma alanine schafer otransferase (ALT) measurementOrdered By: Mariajosemanpreet Nickerson on 12-16-2024 ALT [Catalytic activity/Vol] 24 U/L <35 [facility] Serum or plasma uric acid me asurement (mass/volume)Ordered By: Mariajose Nickerson on 12-16-2024 Urate [Mass/Vol] 5.3 mg/dL 2.6-6.0 [facility] Comment on above: The drugs N-Acetylcy steine and Metamizole may falsely depress this assay. Uric Acidon 12-16-2024 URIC 5.3 mg/dL Normal 2.6-6.0 [facility] Comment on above: Result Comment: The drugs N-Acetylcysteine and Metamizole may falsely depress this assay. Performed By: #### L 501.080 #### [facility] [address] [place], [place], [address] White blood cell (WBC) count Ordered By: Mariajose Nickerson on 12-16-2024 WBC (Bld) [#/Vol] 8.3 10*3/uL 4.4-11.0 [facility] CNPNon 12-15-2024 CNPN Normal [facility] Bedside Glucoseon 12-09-2024 FINGERSTICK GLU 97 mg/dL Normal 74-106 [facility] Comment on above: Result Comment: ELLEN ZAMBRANO OF PATIENT CARE PER NURSING PROTOCOL Performed By: #### L 501.080 #### [facility] [address] [place], [address] FINGERSTICK GLU 101 mg/dL Normal 74-106 [facility] Comment on above: Result Comment: ELLEN GEMENT OF PATIENT CARE PER NURSING PROTOCOL Performed By: #### L 501.080 #### [facility] [address] [place], [address] [facility] at [facility] deOrdered By: William Gramajo on 12-09-2024 Glucose [Mass/Vol] 97 mg/dL 74-106 [facility] Comment on above: MANAGEMENT OF PATIEN T CARE PER NURSING PROTOCOL Bedside Glucoseon 12-08-2024 FINGERSTICK GLU 125 mg/dL High 74-106 [facility] Comment on above: Result Comment: ELLEN GEMENT OF PATIENT CARE PER NURSING PROTOCOL Performed By: #### L 501.080 #### [facility] [address] [place], [address] FINGERSTICK GLU 93 mg/dL Normal 74-106 [facility] Comment on above: Result Comment: ELLEN GEMENT OF PATIENT CARE PER NURSING PROTOCOL Performed By: #### L 501.080 #### [facility] [address] [place], [address] FINGERSTICK GLU 104 mg/dL Normal 74-106 [facility] Comment on above: Result Comment: ELLEN GEMENT OF PATIENT CARE PER NURSING PROTOCOL Performed By: #### L 501.080 #### [facility] [address] [place], [address] FINGERSTICK GLU 132 mg/dL High 74-106 [facility] Comment on above: Result Comment: ELLEN GEMENT OF PATIENT CARE PER NURSING PROTOCOL Performed By: #### L 501.080 #### [facility] [address] [place], [address] CNPNon 12-08-2024 CNPN Normal [facility] Absolute lymphocyte countOrd ered By: William Gramajo on 07-01-2025 Lymphocytes Auto (Unsp spec) [#/Vol] 1.98 10*3/uL 0.83-4.51 [facility] Absolute neutrophil countOrd ered By: William Gramajo on 12-07-2024 Neutrophils (Bld) [#/Vol] 6.3 10*3/uL 2.0-7.7 [facility] Amphetamine detection with 1 000 ng/mL as cutoffOrdered By: William Gramajo on 12-07-2024 Amphetamines Screen method >1000 ng/mL Ql (U) Negative < 200 ng/mL [facility] Automated blood erythrocyte countOrdered By: William Gramajo on 12-07-2024 RBC (Bld) [#/Vol] 4.25 10*6/uL Normal 4.2-5.4 [facility] Comment on above: Performed By: #### B TS, L100.0100 #### [facility] [address] [place], [address] Automated blood hematocrit ( percentage)Ordered By: William Gramajo on 12-07-2024 Hematocrit (Bld) [Volume fraction] 36.0 % Low 37-47 [facility] Comment on above: Performed By: #### B TS, L100.0100 #### [facility] [address] [place], [address] Automated lymphocyte count a s percentage of total leukocytesOrdered By: William Gramajo on 12-07-2024 Lymphocytes/100 WBC Auto (Unsp spec) 22.0 % 19-41 [facility] Basophil percentageOrdered B y: William Gramajo on 12-07-2024 Basophils/100 WBC (Bld) 0.4 % Normal 0-1 [facility] Comment on above: Performed By: #### B TS, L100.0100 #### [facility] [address] [place], [address] Bedside Glucoseon 12-07-2024 FINGERSTICK GLU 143 mg/dL High 74-106 [facility] Comment on above: Result Comment: ELLEN ZAMBRANO OF PATIENT CARE PER NURSING PROTOCOL Performed By: #### L 501.080 #### [facility] [address] [place], [address] FINGERSTICK GLU 118 mg/dL High 74-106 [facility] Comment on above: Result Comment: ELLEN GEMENT OF PATIENT CARE PER NURSING PROTOCOL Performed By: #### L 501.080 #### [facility] [address] [place], [address] FINGERSTICK GLU 73 mg/dL Low 74-106 [facility] Comment on above: Result Comment: ELLEN GEMENT OF PATIENT CARE PER NURSING PROTOCOL Performed By: #### L 501.080 #### [facility] [address] [place], [address] FINGERSTICK GLU 99 mg/dL Normal 74-106 [facility] Comment on above: Result Comment: ELLEN GEMENT OF PATIENT CARE PER NURSING PROTOCOL Performed By: #### L 501.080 #### [facility] [address] [place], [address] CBC W/Diff, Automatedon 07-0 1-2025 Absolute Lymph 1.98 X10 3/uL Normal 0.83-4.51 [facility] Comment on above: Performed By: #### B TS, L100.0100 #### [facility] [address] [place], [address] Absolute Neut 6.3 X10 3/uL Normal 2.0-7.7 [facility] Comment on above: Performed By: #### B TS, L100.0100 #### [facility] [address] [place], [address] IG% 0.600 Normal 0.0-0.9 [facility] Comment on above: Result Comment: IG% - Immature Granulocytes (promyelocytes, myelocytes and metamyelocytes) > 1% indicates that a LEFT SHIFT is Present. Performed By: #### B CHER, L100.0100 #### [facility] [address] [place], [address] Lymphocytes/100 WBC (Bld) 22.0 % Normal 19-41 [facility] Comment on above: Performed By: #### Jo KWON, L100.0100 #### [facility] [address] [place], [address] Nucleated RBC (Bld) [#/Vol] 0 10*3/uL Normal 0-5 [facility] Comment on above: Performed By: #### Jo KWON, L100.0100 #### [facility] [address] [place], [address] RDW SD 41.1 fl Normal 35.1-43.9 [facility] Comment on above: Performed By: #### Jo KWON, L100.0100 #### [facility] [address] [place], [address] Eosinophil percentageOrdered By: William Gramajo on 12-07-2024 Eosinophils/100 WBC (Bld) 1.0 % Normal 0-5 [facility] Comment on above: Performed By: #### Jo KWON, L100.0100 #### [facility] [address] [place], [address] Erythrocyte distribution wid th ratioOrdered By: William Gramajo on 12-07-2024 Erythrocyte distribution width (RBC) [Ratio] 13.4 % Normal 11.6-14.6 [facility] Comment on above: Performed By: #### Jo KWON, L100.0100 #### [facility] [address] 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 Jamari Byrne MD Status:ADM IN Location: [place] [id number] HPI - General General Date of Admission: 12/07/24 HPI Narrative MELISSA BYRNE, is a 29 F who presents with contractions and was scheduled for induction today. Maternal Data Information ADA Calculator Estimated Delivery Date Method Current WG Current Estimate 12/18/24 Manual 38w 3d PFSH PFS Medical History (Updated 12/07/24 @ 13:40 by [...] MD; Dr. William Gramajo MD Signed Normal [facility] Hemoglobin measurementOrdere d By: William Gramajo on 12-07-2024 Hemoglobin (Bld) [Mass/Vol] 12.1 g/dL Normal 12.0-15.0 [facility] Comment on above: Performed By: #### B TS, L100.0100 #### [facility] [address] [place], [address] Immature granulocytes/100 WB C Auto (Bld)Ordered By: William Gramajo on 12-07-2024 Immature granulocytes/100 WBC (Bld) 0.600 % 0.0-0.9 [facility] Comment on above: IG% - Immature Granu locytes (promyelocytes, myelocytes and metamyelocytes) > 1% indicates that a LEFT SHIFT is Present. MCV (mean corpuscular volume ) determinationOrdered By: William Gramajo on 12-07-2024 MCV (RBC) [Entitic vol] 84.7 fL Normal 81-99 [facility] Comment on above: Performed By: #### B TS, L100.0100 #### [facility] [address] [place], [address] MR/OB.VAGDELIon 12-07-2024 [facility] Medical Records Department [address] [place] [address] OB Vaginal Delivery 12/07/242023 MR#: [id number] Acct: [id number] Name: MELISSA BYRNE AMRITA Rep #: [id number] : 1995 29 From: William Gramajo MD PCP: Dr. 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 Jamari Byrne MD; Dr. William Gramajo MD Signed Normal [facility] Mean corpuscular hemoglobin (MCH) determinationOrdered By: William Gramajo on 12-07-2024 MCH (RBC) [Entitic mass] 28.5 pg Normal 27.0-32.0 [facility] Comment on above: Performed By: #### B TS, L100.0100 #### [facility] [address] [place], [address] Mean corpuscular hemoglobin concentration (MCHC) determinationOrdered By: William Gramajo on 12-07-2024 MCHC (RBC) [Mass/Vol] 33.6 g/dL Normal 32-36 [facility] Comment on above: Performed By: #### B TS, L100.0100 #### [facility] [address] [place], [address] Mean platelet volume determi nationOrdered By: William Gramajo on 12-07-2024 Platelet mean volume (Bld) [Entitic vol] 9.7 fL Normal 6.2-12.0 [facility] Comment on above: Performed By: #### B TS, L100.0100 #### [facility] [address] [place], [address] Monocyte percentageOrdered B y: William Gramajo on 12-07-2024 Monocytes/100 WBC (Bld) 6.0 % Normal 0-10 [facility] Comment on above: Performed By: #### B TS, L100.0100 #### [facility] [address] [place], [address] Neutrophil percentageOrdered By: William Gramajo on 12-07-2024 Neutrophils/100 WBC (Bld) 70.0 % Normal 47-70 [facility] Comment on above: Performed By: #### B TS, L100.0100 #### [facility] [address] [place], [address] No Panel InformationOrdered By: William Gramajo on 12-07-2024 Urine Buprenorphine Qualitative Negative < 200 ng/mL [facility] Urine Oxycodone Screen Negative < 100 ng/mL [facility] Nucleated red blood cell per centageOrdered By: William Gramajo on 12-07-2024 Nucleated RBC/100 WBC (Bld) [Ratio] 0 % 0-5 [facility] Platelet countOrdered By: Nickolas Gramajo on 12-07-2024 Platelets (Bld) [#/Vol] 230 10*3/uL Normal 150-450 [facility] Comment on above: Performed By: #### B TS, L100.0100 #### [facility] [address] [place], [address] Quantitative urine opiates m easurementOrdered By: William Gramajo on 12-07-2024 Opiates Ql (U) Negative < 300 ng/mL [facility] Screening urine fentanyl brigitte surementOrdered By: William Gramajo on 12-07-2024 fentaNYL Screen Ql (U) Negative [facility] Syphilis Antibodieson 2024 Syphilis Abs Non-Reactive Normal Nonreactive [facility] Comment on above: Performed By: #### L 501.080 #### [facility] [address] [place], [address] Type AND Screenon 12-07-2024 Ab SCREEN GEL Negative Normal [facility] Comment on above: Order Comment: Labor Performed By: #### B TS, L100.0100 #### [facility] [address] [place], [address] Ur Drg Scn w/Rflx AMPH Confi rmon 12-07-2024 DRUG CONFIRM Normal [facility] Comment on above: Order Comment: . [...] UTCA Performed By: #### L 501.080 #### [facility] [address] [place], [address] VISTA UDS PH Normal [facility] Comment on above: Order Comment: . Performed By: #### L 501.080 #### [facility] [address] [place], [address] Urine Drug Screen (VISTA)on 12-07-2024 BARBITIURATES Normal < 200 ng/mL [facility] Comment on above: Order Comment: . Performed By: #### L 501.080 #### [facility] [address] [place], [address] BENZODIAZIPINE Normal < 200 ng/mL [facility] Comment on above: Order Comment: . Performed By: #### L 501.080 #### [facility] [address] [place], [address] BUP Ur Drug Scr Normal < 200 ng/mL [facility] Comment on above: Order Comment: . Performed By: #### L 501.080 #### [facility] [address] [place], [address] COCAINE Normal < 300 ng/mL [facility] Comment on above: Order Comment: . Performed By: #### L 501.080 #### [facility] [address] [place] [id number] Fentanyl Normal [facility] Comment on above: Order Comment: . Performed By: #### L 501.080 #### [facility] [address] [place] [id number] METHADONE Normal < 300 ng/mL [facility] Comment on above: Order Comment: . Performed By: #### L 501.080 #### [facility] [address] [place] [address] OPIATES Normal < 300 ng/mL [facility] Comment on above: Order Comment: . Performed By: #### L 501.080 #### [facility] [address] [place], [address] OXYCODONE Normal < 100 ng/mL [facility] Comment on above: Order Comment: . Performed By: #### L 501.080 #### [facility] [address] [place], [address] PCP Normal < 25 ng/mL [facility] Comment on above: Order Comment: . Performed By: #### L 501.080 #### [facility] [address] [place], [address] THC Normal < 50 ng/mL [facility] Comment on above: Order Comment: . Performed By: #### L 501.080 #### [facility] [address] [place], [address] Urine benzodiazepine levelOr dered By: William Gramajo on 12-07-2024 Benzodiazepines Ql (U) Negative < 200 ng/mL [facility] Urine cocaine levelOrdered B y: William Gramajo on 12-07-2024 Cocaine Ql (U) Negative < 300 ng/mL [facility] Urine oevav-0-ljkkzxwbzgwkor abinol (THC) measurementOrdered By: William Gramajo on 12-07-2024 Cannabinoids Screen Ql (U) Negative < 50 ng/mL [facility] Urine phencyclidine (PCP) de tectionOrdered By: William Gramajo on 12-07-2024 Phencyclidine Ql (U) Negative < 25 ng/mL [facility] White blood cell (WBC) count Ordered By: William Gramajo on 12-07-2024 WBC (Bld) [#/Vol] 9.0 10*3/uL Normal 4.4-11.0 [facility] Comment on above: Performed By: #### B , L100.0100 #### [facility] [address] [place], [address] [facility] 12-06-2024 CNPN Normal [facility] Biophysical profile.tammy dy movement USon 12-06-2024 [facility] Radiology Study observation (narrative) [facility] URINE OB DIP B/Oon 5 Glucose Ql (U) 100 mg/dL Neg [facility] Interpretation and review of laboratory results Normal [facility] Protein.monoclonal (U) [Mass/Vol] Negative Neg [facility] Normal [facility] Biophysical profile.tammy dy movement USon 11-30-2024 [facility] Radiology Study observation (narrative) [facility] CNPNon 11-25-2024 CNPN Normal [facility] URINE OB DIP B/Oon 5 Glucose Ql (U) Negative Neg mg/dL [facility] Interpretation and review of laboratory results Normal [facility] Protein.monoclonal (U) [Mass/Vol] Negative Neg mg/dL [facility] Biophysical profile.tammy dy movement USon 11-22-2024 [facility] Radiology Study observation (narrative) [facility] OB Triage Physician Noteon 0 11-19-2024 OB Triage Physician Note [facility] Medical Records Department [address] [place] [address] OB Triage Physician Note 11/19/24 0712 MR#: [id number] Acct: [id number] Name: MELISSA BYRNE Rep #: [id number] : 1995 29 From: Whit Patel MD PCP: Dr. Jamari Byrne MD Status:DEP CLI Y Location: [facility] HPI - General General Date of Service: [...] Reaction Status Date / Time aripiprazole (From Abiliy) AdvReac Other Verified 11/15/24 15:53 metoclopramide (From [...] labor 1) nst reactive, false labor 2) In home 11/19/24 0715 D> Date Whit Patel MD Cosigner Signature (if applicable): Date CC: Dr Whit Patel MD; Dr. Jamari Byrne MD Signed Normal [facility] BACTERIAL VAGINOSIS NAATon 0 11-18-2024 Lactobacillus crispatus+gasseri+dez senii + Gardnerella vaginalis + Atopobium vaginae rRNA SUMIT+probe Ql (Vag fld) Not detected Normal Not detected [facility] Comment on above: Order Comment: Speci men Type: SWABOrdering Facility: [facility] Address: [address] [place] [address] Performed By: #### C VTV, BVAMP ####[facility] LABCLIA [id number] [place] [address] [place] JOSUÉ/TRICHOMONAS NAATon 0 11-18-2024 C. glabrata RNA SUMIT+probe Ql (Vag fld) Not detected Normal Not detected [facility] Comment on above: Order Comment: Speci men Type: SWABOrdering Facility: [facility] Address: [address] [place] [address] Performed By: #### C VTV, BVAMP ####[facility] LABCLIA [id number] [address] [place] Josué sp DNA SUMIT+probe Ql (Vag fld) Not detected Normal Not detected [facility] Comment on above: Order Comment: Speci men Type: SWABOrdering Facility: [facility] Address: [address] [place] [address] Result Comment: The Josué species group target includes C. albicans, C. tropicalis, C. parapsilosis, and C. dubliniensis. Performed By: #### C VTV, BVAMP ####[facility] LABCLIA [id number] [place] [address] [place] T. vaginalis DNA SUMIT+probe Ql (Unsp spec) Not detected Normal Not detected [facility] Comment on above: Order Comment: Speci men Type: SWABOrdering Facility: [facility] Address: [address] [place] [address] Performed By: #### C VTV, BVAMP ####[facility] LABCLIA [id number] [place] [address] [place] Urine Cultureon 11-17-2024 [facility] Comments: urine in l ab Mixed Gram Positive Organisms [place] Count 11,000-25,000 MIXC Mixed contaminants. Submit a new specimen if indicated. Normal [facility] Comment on above: Performed By: #### L 501.080 #### [facility] [address] [place], [address] CNPNon 11-16-2024 CNPN Normal [facility] Amorphous sediment detection in urine sediment by light microscopyOrdered By: Whit Patel on 11-15-2024 Amorphous sediment LM Ql (Urine sed) 1+ [facility] Bilirubin Test strip Ql (U)O rdered By: Whit Patel on 11-15-2024 Bilirubin Ql (U) Negative Negative [facility] Calcium oxalate crystals det ection in urine sediment by light microscopyOrdered By: Whit Patel on 11-15-2024 Calcium oxalate crystals LM Ql (Urine sed) 2+ /hpf [facility] Biophysical profile.tammy dy movement USon 11-15-2024 [facility] Radiology Study observation (narrative) [facility] Ketones Test strip Ql (U)Ord ered By: Whit Patel on 11-15-2024 Ketones Ql (U) 5 mg/dl High Negative [facility] Microscopic analysis of urin e for red blood cells (RBC)Ordered By: Whit Patel on 11-15-2024 Microscopic analysis of urine for red blood cells (RBC) 0-5 SEEN /hpf 0-5 [facility] Mucus LM Ql (Urine sed)Order ed By: Whit Patel on 11-15-2024 Mucus Ql (Urine sed) 0 SEEN /hpf [facility] Nitrite Test strip Ql (U)Ord ered By: Whit Patel on 11-15-2024 Nitrite Ql (U) Negative Negative [facility] Protein Test strip Ql (U)Ord ered By: Whit Patel on 11-15-2024 Protein Ql (U) 15 mg/dl High Negative [facility] Squamous epithelial cells de tection in urine sediment by light microscopyOrdered By: Whit Patel on 11-15-2024 Epithelial cells.squamous LM Ql (Urine sed) 5-10 SEEN /hpf 5-10 [facility] URINE OB DIP B/Oon Glucose Ql (U) Negative Neg mg/dL [facility] Interpretation and review of laboratory results Normal [facility] Protein.monoclonal (U) [Mass/Vol] Negative Neg mg/dL [facility] Urinalysis, Completeon 11-15 AMORPHOUS 1+ Normal [facility] Comment on above: Order Comment: CLEAN CATCH Performed By: #### L 400.0001 #### [facility] [address] [place], [address] BACTERIA 2+ /hpf Normal None Seen [facility] Comment on above: Order Comment: CLEAN CATCH Performed By: #### L 400.0001 #### [facility] [address] [place], [address] CA OX CRYSTAL 2+ /hpf Normal [facility] Comment on above: Order Comment: CLEAN CATCH Performed By: #### L 400.0001 #### [facility] [address] [place], [address] EPI,SQUAMOUS 5-10 SEEN Normal 5-10 [facility] Comment on above: Order Comment: CLEAN CATCH Performed By: #### L 400.0001 #### [facility] [address] [place], [address] RBC 0-5 SEEN Normal 0-5 [facility] Comment on above: Order Comment: CLEAN CATCH Performed By: #### L 400.0001 #### [facility] [address] [place], [address] WBC 0-5 SEEN Normal 0-5 [facility] Comment on above: Order Comment: CLEAN CATCH Performed By: #### L 400.0001 #### [facility] [address] [place], [address] Mucus Ql (Urine sed) [address] [facility] Comment on above: Order Comment: CLEAN CATCH Performed By: #### L 400.0001 #### [facility] [address] [place], [address] Urine clarityOrdered By: Solomon on 11-15-2024 Clarity (U) Clear Clear [facility] Urine color determinationOrd ered By: Whit Patel on 11-15-2024 Color (U) Yellow Yellow [facility] Urine cultureOrdered By: Solomon on 11-15-2024 Bacteria identified Cx Nom (U) Positive Abnormal [facility] Urine glucose detectionOrder ed By: Whit Patel on 11-15-2024 Glucose Ql (U) 1000 mg/dl High Normal [facility] Urine leukocyte esterase det ection by dipstickOrdered By: Whit Schulte on 11-15-2024 Leukocyte esterase Test strip Ql (U) Negative Negative [facility] Urine pHOrdered By: Whit Collado on 11-15-2024 pH (U) 6.0 [pH] 5.0 - 8.0 [facility] Urine sediment bacteria coun t by microscopy (number/high power field)Ordered By: Whit Patel on 11-15-2024 Bacteria LM.HPF (Urine sed) [#/Area] 2 /[HPF] None Seen [facility] Urine specific gravity measu rementOrdered By: Whit Patel on 11-15-2024 Specific gravity (U) [Rel density] 1.030 1.002-1.030 [facility] Urine urobilinogen measureme ntOrdered By: Whit Patel on 11-15-2024 Urobilinogen Ql (U) 1 mg/dl High Normal [facility] White blood cell countOrdere d By: Whit Patel on 11-15-2024 White blood cell count 0-5 SEEN /hpf 0-5 [facility] URINE OB DIP B/Oon Glucose Ql (U) Negative Neg mg/dL [facility] Protein.monoclonal (U) [Mass/Vol] Negative Neg mg/dL [facility] Biophysical profile.tammy dy movement USon 11-08-2024 [facility] Radiology Study observation (narrative) [facility] BILE ACIDS FRACT BLDon 11-05 CHENODEOXYCHOLIC ACID 0.8 umol/L Normal 0.0-3.4 [facility] Comment on above: Order Comment: Speci men Type: BLOOD SPECIMENOrdering Facility: [facility] Address: [address] [place] [address] Performed By: #### B ILE ####[facility] [id number] [place] [address] CHOLIC ACID 0.8 umol/L Normal 0.0-1.9 [facility] Comment on above: Order Comment: Speci men Type: BLOOD SPECIMENOrdering Facility: [facility] Address: [address] [place] [address] Performed By: #### B ILE ####[facility] [id number] [place] [address] DEOXYCHOLIC ACID 1.8 umol/L Normal 0.0-2.5 [facility] Comment on above: Order Comment: Speci men Type: BLOOD SPECIMENOrdering Facility: [facility] Address: [address] [place] [address] Performed By: #### B ILE ####[facility]CLIA [id number] [place] [address] TOTAL BILE ACIDS 3.7 umol/L Normal 0.0-7.0 [facility] Comment on above: Order Comment: Speci men Type: BLOOD SPECIMENOrdering Facility: [facility] Address: [address] [place] [address] Result Comment: INTE RPRETIVE INFORMATION: Bile Acids, Fractionated and TotalThis test was developed and its performance characteristicsdetermined by [employer]. It has not been cleared orapproved by the [place] Food and Drug Administration. This test wasperformed in a CLIA certified laboratory and is intended forclinical purposes.Performed By: [facility] [place], [place] [id number] Director: Cristofer Voss MD, PhDCLIA Number: [id number] Performed By: #### B ILE ####[facility]OR[facility]IESCLIA [id number] [place] [address] URSODEOXYCHOLIC ACID 0.3 umol/L Normal 0.0-1.0 [facility] Comment on above: Order Comment: Speci men Type: BLOOD SPECIMENOrdering Facility: [facility] Address: [address] [place] [address] Performed By: #### B ILE ####[facility] TROYIA [id number] [place] [address] BILE ACIDS, TOTALon 05-30-20 25 Bile acid [Moles/Vol] 6.0 umol/L Normal <7.5 [facility] Comment on above: Order Comment: Speci gregg Type: BLOOD SPECIMENOrdering Facility: [facility] Address: [address] [place] [address] Result Comment: Refe rence interval applies to [...] 10.4 umol/L Performed By: #### B FREDERICK ####[facility] LABCLIA [id number] [address] [facility] Comprehensive metabolic 2000 panelOrdered By: Jayne Brunner on 11-05-2024 Albumin [Mass/Vol] 3.6 g/dL Low 3.9 - 4.9 g/dL [facility] ALP [Catalytic activity/Vol] 83 U/L 34 - 123 U/L [facility] ALT [Catalytic activity/Vol] 10 U/L 7 - 38 U/L [facility] Anion gap [Moles/Vol] 11 mmol/L 8 - 15 mmol/L [facility] AST [Catalytic activity/Vol] 9 U/L Low 13 - 35 U/L [facility] Bilirubin [Mass/Vol] 0.3 mg/dL 0.2 - 1 .3 mg/dL [facility] Calcium [Mass/Vol] 9 mg/dL 8.5 - 10. 2 mg/dL [facility] Chloride [Moles/Vol] 103 mmol/L 98 - 10 7 mmol/L [facility] CO2 [Moles/Vol] 21 mmol/L Low 22 - 30 mmol/L [facility] Creatinine [Mass/Vol] 0.42 mg/dL Low 0.58 - 0.96 mg/dL [facility] GFR/1.73 sq M.predicted among non-blacks MDRD (S/P/Bld) [Vol rate/Area] 136 mL/min/{1.73_m2} - PINF [facility] Comment on above: Estimated Glomerular Filtration [...] 115 mg/dL High 74 - 99 mg/dL [facility] Comment on above: The [place] Diabete s Association (ADA) provides guidance for [...] Standards of Medical Care in Diabetes 2016, [place] [employer]. Diabetes Care. 2016.39(Suppl 1). Interpretation and review of laboratory results Abnormal [facility] Potassium [Moles/Vol] 3.8 mmol/L 3.7 - 5.1 mmol/L [facility] Protein [Mass/Vol] 6.9 g/dL 6.3 - 8.0 g/dL [facility] Sodium [Moles/Vol] 135 mmol/L Low 136 - 144 mmol/L [facility] Urea nitrogen [Mass/Vol] 7 mg/dL 7 - 21 mg/dL [facility] Comprehensive metabolic 2000 panelon 11-05-2024 Albumin [Mass/Vol] 3.6 g/dL Low 3.9-4.9 [facility] Comment on above: Order Comment: Speci men Type: BLOOD SPECIMENOrdering Facility: [facility] Address: [address] [place] [address] Performed By: #### 2 4323-8 ####[facility] [id number] [place] [address] [place] ALP [Catalytic activity/Vol] 83 U/L Normal 34-123 [facility] Comment on above: Order Comment: Speci men Type: BLOOD SPECIMENOrdering Facility: [facility] Address: [address] [place] [address] Performed By: #### 2 4323-8 ####[facility] [id number] [place] [address] [place] ALT [Catalytic activity/Vol] 10 U/L Normal 7-38 [facility] Comment on above: Order Comment: Speci men Type: BLOOD SPECIMENOrdering Facility: [facility] Address: [address] [place] [address] Performed By: #### 2 4323-8 ####[facility]ITALWNCLIA [id number] [place] [address] [place] Anion gap [Moles/Vol] 11 mmol/L Normal 8-15 [facility] Comment on above: Order Comment: Speci men Type: BLOOD SPECIMENOrdering Facility: [facility] Address: [address] [place] [address] Performed By: #### 2 4323-8 ####[facility]ENTERLIA [id number] [place] [address] [place] AST [Catalytic activity/Vol] 9 U/L Low 13-35 [facility] Comment on above: Order Comment: Speci men Type: BLOOD SPECIMENOrdering Facility: [facility] Address: [address] [place] [address] Performed By: #### 2 4323-8 ####[facility] [id number] [place] [address] [place] Bilirubin [Mass/Vol] 0.3 mg/dL Normal 0.2-1.3 [facility] Comment on above: Order Comment: Speci men Type: BLOOD SPECIMENOrdering Facility: [facility] Address: [address] [place] [address] Performed By: #### 2 4323-8 ####[facility]CLIA [id number] [place] [address] [place] Calcium [Mass/Vol] 9.0 mg/dL Normal 8.5-10.2 [facility] Comment on above: Order Comment: Speci men Type: BLOOD SPECIMENOrdering Facility: [facility] Address: [address] [place] [address] Performed By: #### 2 4323-8 ####[facility]ENTERLIA [id number] [place] [address] [place] Chloride [Moles/Vol] 103 mmol/L Normal 98-107 [facility] Comment on above: Order Comment: Speci men Type: BLOOD SPECIMENOrdering Facility: [facility] Address: [address] [place] [address] Performed By: #### 2 4323-8 ####[facility] [id number] [place] [address] [place] CO2 [Moles/Vol] 21 mmol/L Low 22-30 [facility] Comment on above: Order Comment: Speci men Type: BLOOD SPECIMENOrdering Facility: [facility] Address: [address] [place] [address] Performed By: #### 2 4323-8 ####[facility] [id number] [place] [address] [place] Creatinine [Mass/Vol] 0.42 mg/dL Low 0.58-0.96 [facility] Comment on above: Order Comment: Speci men Type: BLOOD SPECIMENOrdering Facility: [facility] Address: [address] [place] [address] Performed By: #### 2 4323-8 ####[facility] [id number] [address] [facility] Creatinine and Glomerular filtration rate.predicted panel (S/P/Bld) 136 mL/min/1.73m??? Normal >=60 [facility] Comment on above: Order Comment: Speci men Type: BLOOD SPECIMENOrdering Facility: [facility] Address: [address] [place] [address] Result Comment: Ascencion mated Glomerular Filtration Rate [...] Performed By: #### 2 4323-8 ####[facility]PITALWNCLIRaymond [id number] [place] [address] [place] Glucose [Mass/Vol] 115 mg/dL High 74-99 [facility] Comment on above: Order Comment: Gume escobedo Type: BLOOD SPECIMENOrdering Facility: [facility] Address: [address] [place] [address] Result Comment: The [place] Diabetes Association (ADA) provides guidance for cutoff [...] Standards of Medical Care in Diabetes 2016, [place] [employer]. Diabetes Care. 2016.39(Suppl 1). Performed By: #### 2 4323-8 ####[facility] [id number] [place] [address] [place] Potassium [Moles/Vol] 3.8 mmol/L Normal 3.7-5.1 [facility] Comment on above: Order Comment: Gume escobedo Type: BLOOD SPECIMENOrdering Facility: [facility] Address: [address] [id number] Performed By: #### 2 4323-8 ####[facility]ERNCLIA [id number] [place] [address] [place] Protein [Mass/Vol] 6.9 g/dL Normal 6.3-8.0 [facility] Comment on above: Order Comment: Speci men Type: BLOOD SPECIMENOrdering Facility: [facility] Address: [address] [place] [address] Performed By: #### 2 4323-8 ####[facility] [id number] [place] [address] [place] Sodium [Moles/Vol] 135 mmol/L Low 136-144 [facility] Comment on above: Order Comment: Speci men Type: BLOOD SPECIMENOrdering Facility: [facility] Address: [address] [place] [address] Performed By: #### 2 4323-8 ####[facility] [id number] [place] [address] [place] Urea nitrogen [Mass/Vol] 7 mg/dL Normal 7-21 [facility] Comment on above: Order Comment: Speci men Type: BLOOD SPECIMENOrdering Facility: [facility] Address: [address] [place] [address] Performed By: #### 2 4323-8 ####[facility] [id number] [place] [address] [place] URINE OB DIP B/Oon 5 Glucose Ql (U) 250 mg/dL Neg [facility] Interpretation and review of laboratory results Normal [facility] Protein.monoclonal (U) [Mass/Vol] Negative Neg mg/dL [facility] CNCNPATEDon 11-04-2024 CNCNPATED Normal [facility] CNOVon 11-04-2024 CNOV Normal [facility] CNPNon 11-02-2024 CNPN Normal [facility] Examination level ultrasound on 11-02-2024 [facility] Radiology Study observation (narrative) [facility] URINE OB DIP B/Oon 5 Glucose Ql (U) 1000 mg/dL Neg [facility] Interpretation and review of laboratory results Abnormal [facility] Protein.monoclonal (U) [Mass/Vol] Negative Neg mg/dL [facility] CNPNon 10-29-2024 CNPN Normal [facility] CNPNon 10-27-2024 CNPN Normal [facility] CBC panel Auto (Bld)on 10-25 Erythrocyte distribution width (RBC) [Ratio] 12.9 % 11.5 - 15.0 % [facility] Hematocrit (Bld) [Volume fraction] 36 % 36.0 - 46.0 % [facility] Hemoglobin (Bld) [Mass/Vol] 12.4 g/dL 11.5 - 15.5 g/dL [facility] Interpretation and review of laboratory results Normal [facility] MCH (RBC) [Entitic mass] 29.5 pg 26.0 - 34.0 pg [facility] MCHC (RBC) [Mass/Vol] 34.4 g/dL 30.5 - 36.0 g/dL [facility] MCV (RBC) [Entitic vol] 85.5 fL 80.0 - 100.0 fL [facility] Nucleated RBC (Bld) [#/Vol] NINF [facility] Platelet mean volume (Bld) [Entitic vol] 9.6 fL 9.0 - 12.7 fL [facility] Platelets (Bld) [#/Vol] 274 10*3/uL [facility] RBC (Bld) [#/Vol] 4.21 10*6/uL 3.90 - 5.2 0 m/uL [facility] WBC (Bld) [#/Vol] 8.6 10*3/uL [facility] Erythrocyte distribution width (RBC) [Ratio] 12.9 % Normal 11.5-15.0 [facility] Comment on above: Order Comment: Speci men Type: BLOOD SPECIMENOrdering Facility: [facility] Address: [address] [place] [address] Performed By: #### 5 8410-2 ####[facility] HAROLDO CARBAJAL [id number] [place] [address] [place] Hematocrit (Bld) [Volume fraction] 36.0 % Normal 36.0-46.0 [facility] Comment on above: Order Comment: Speci men Type: BLOOD SPECIMENOrdering Facility: [facility] Address: [address] [place] [address] Performed By: #### 5 8410-2 ####[facility] VICKYANDREWSVERNON [id number] [place] [address] [place] Hemoglobin (Bld) [Mass/Vol] 12.4 g/dL Normal 11.5-15.5 [facility] Comment on above: Order Comment: Speci men Type: BLOOD SPECIMENOrdering Facility: [facility] Address: [address] [place] [address] Performed By: #### 5 8410-2 ####[facility]ENTERKLAUSJORDAN [facility] [id number] [place] [address] [place] MCH (RBC) [Entitic mass] 29.5 pg Normal 26.0-34.0 [facility] Comment on above: Order Comment: Speci men Type: BLOOD SPECIMENOrdering Facility: [facility] Address: [address] [place] [address] Performed By: #### 5 8410-2 ####[facility] [id number] [address] [place] MCHC (RBC) [Mass/Vol] 34.4 g/dL Normal 30.5-36.0 [facility] Comment on above: Order Comment: Speci men Type: BLOOD SPECIMENOrdering Facility: [facility] Address: [address] [place] [address] Performed By: #### 5 8410-2 ####[facility]CLIA [id number] [place] [address] [place] MCV (RBC) [Entitic vol] 85.5 fL Normal 80.0-100.0 [facility] Comment on above: Order Comment: Speci men Type: BLOOD SPECIMENOrdering Facility: [facility] Address: [address] [place] [address] Performed By: #### 5 8410-2 ####[facility] MILLTOWNCLIA [id number] [place] [address] [place] Nucleated RBC (Bld) [#/Vol] 10*3/uL Normal <0.01 [facility] Comment on above: Order Comment: Speci men Type: BLOOD SPECIMENOrdering Facility: [facility] Address: [address] [place] [address] Performed By: #### 5 8410-2 ####[facility]ERNCLIA [id number] [place] [address] [place] Platelet mean volume (Bld) [Entitic vol] 9.6 fL Normal 9.0-12.7 [facility] Comment on above: Order Comment: Speci men Type: BLOOD SPECIMENOrdering Facility: [facility] Address: [address] [place] [address] Performed By: #### 5 8410-2 ####[facility]ENTERLIA [id number] [place] [address] [place] Platelets (Bld) [#/Vol] 274 10*3/uL Normal 150-400 [facility] Comment on above: Order Comment: Speci men Type: BLOOD SPECIMENOrdering Facility: [facility] Address: [address] [place] [address] Performed By: #### 5 8410-2 ####[facility]ITALWNCLIA [id number] [place] [address] [place] RBC (Bld) [#/Vol] 4.21 10*6/uL Normal 3.90-5.20 [facility] Comment on above: Order Comment: Speci men Type: BLOOD SPECIMENOrdering Facility: [facility] Address: [address] [place] [address] Performed By: #### 5 8410-2 ####[facility] MILLWNCLIA [id number] [place] [address] [place] WBC (Bld) [#/Vol] 8.60 10*3/uL Normal 3.70-11.00 [facility] Comment on above: Order Comment: Speci men Type: BLOOD SPECIMENOrdering Facility: [facility] Address: [address] [place] [address] Performed By: #### 5 8410-2 ####[facility] HAROLDO [facility] [id number] [place] [address] [facility] OF [place] Comprehensive metabolic 2000 panelOrdered By: Aquiles Denny on 10-25-2024 Albumin [Mass/Vol] 3.6 g/dL Low 3.9 - 4.9 g/dL [facility] ALP [Catalytic activity/Vol] 82 U/L 34 - 123 U/L [facility] ALT [Catalytic activity/Vol] 11 U/L 7 - 38 U/L [facility] Anion gap [Moles/Vol] 14 mmol/L 8 - 15 mmol/L [facility] AST [Catalytic activity/Vol] 9 U/L Low 13 - 35 U/L [facility] Bilirubin [Mass/Vol] 0.2 mg/dL 0.2 - 1 .3 mg/dL [facility] Calcium [Mass/Vol] 9.3 mg/dL 8.5 - 10. 2 mg/dL [facility] Chloride [Moles/Vol] 104 mmol/L 98 - 10 7 mmol/L [facility] CO2 [Moles/Vol] 18 mmol/L Low 22 - 30 mmol/L [facility] Creatinine [Mass/Vol] 0.39 mg/dL Low 0.58 - 0.96 mg/dL [facility] GFR/1.73 sq M.predicted among non-blacks MDRD (S/P/Bld) [Vol rate/Area] 138 mL/min/{1.73_m2} - PINF [facility] Comment on above: Estimated Glomerular Filtration [...] 103 mg/dL High 74 - 99 mg/dL [facility] Comment on above: The [place] Diabete s Association (ADA) provides guidance for [...] Standards of Medical Care in Diabetes 2016, [place] [employer]. Diabetes Care. 2016.39(Suppl 1). Interpretation and review of laboratory results Abnormal [facility] Potassium [Moles/Vol] 3.9 mmol/L 3.7 - 5.1 mmol/L [facility] Protein [Mass/Vol] 7 g/dL 6.3 - 8.0 g/dL [facility] Sodium [Moles/Vol] 136 mmol/L 136 - 144 mmol/L [facility] Urea nitrogen [Mass/Vol] 5 mg/dL Low 7 - 21 mg/dL [facility] Comprehensive metabolic 2000 panelon 10-25-2024 Albumin [Mass/Vol] 3.6 g/dL Low 3.9-4.9 [facility] Comment on above: Order Comment: Milanai gregg Type: BLOOD SPECIMENOrdering Facility: [facility] Address: [address] [place] [address] Performed By: #### 2 4323-8 ####[facility] [id number] [place] [address] [place] ALP [Catalytic activity/Vol] 82 U/L Normal 34-123 [facility] Comment on above: Order Comment: Milanai gregg Type: BLOOD SPECIMENOrdering Facility: [facility] Address: [address] [place] [address] Performed By: #### 2 4323-8 ####[facility] MILLTOWNCLIA [id number] [place] [address] [place] ALT [Catalytic activity/Vol] 11 U/L Normal 7-38 [facility] Comment on above: Order Comment: Speci men Type: BLOOD SPECIMENOrdering Facility: [facility] Address: [address] [place] [address] Performed By: #### 2 4323-8 ####[facility] MILLTOWNCLIA [id number] [place] [address] [place] Anion gap [Moles/Vol] 14 mmol/L Normal 8-15 [facility] Comment on above: Order Comment: Speci men Type: BLOOD SPECIMENOrdering Facility: [facility] Address: [address] [place] [address] Performed By: #### 2 4323-8 ####[facility] MILLTOWNCLIA [id number] [place] [address] [place] AST [Catalytic activity/Vol] 9 U/L Low 13-35 [facility] Comment on above: Order Comment: Speci men Type: BLOOD SPECIMENOrdering Facility: [facility] Address: [address] [place] [address] Performed By: #### 2 4323-8 ####[facility] MILLTOWNCLIA [id number] [place] [address] [place] Bilirubin [Mass/Vol] 0.2 mg/dL Normal 0.2-1.3 [facility] Comment on above: Order Comment: Speci men Type: BLOOD SPECIMENOrdering Facility: [facility] Address: [address] [place] [address] Performed By: #### 2 4323-8 ####[facility] MILLTOWNCLIA [id number] [place] [address] [place] Calcium [Mass/Vol] 9.3 mg/dL Normal 8.5-10.2 [facility] Comment on above: Order Comment: Speci men Type: BLOOD SPECIMENOrdering Facility: [facility] Address: [address] [place] [address] Performed By: #### 2 4323-8 ####[facility]ERNCLIA [id number] [place] [address] [place] Chloride [Moles/Vol] 104 mmol/L Normal 98-107 [facility] Comment on above: Order Comment: Speci men Type: BLOOD SPECIMENOrdering Facility: [facility] Address: [address] [place] [address] Performed By: #### 2 4323-8 ####[facility]ERNCLI [id number] [place] [address] [place] CO2 [Moles/Vol] 18 mmol/L Low 22-30 [facility] Comment on above: Order Comment: Speci men Type: BLOOD SPECIMENOrdering Facility: [facility] Address: [address] [place] [address] Performed By: #### 2 4323-8 ####[facility] [id number] [place] [address] [place] Creatinine [Mass/Vol] 0.39 mg/dL Low 0.58-0.96 [facility] Comment on above: Order Comment: Speci men Type: BLOOD SPECIMENOrdering Facility: [facility] Address: [address] [place] [address] Performed By: #### 2 4323-8 ####[facility]ERNCLIA [id number] [place] [address] [place] Creatinine and Glomerular filtration rate.predicted panel (S/P/Bld) 138 mL/min/1.73m??? Normal >=60 [facility] Comment on above: Order Comment: Speci men Type: BLOOD SPECIMENOrdering Facility: [facility] Address: [address] [place] [address] Result Comment: Ascencion mated Glomerular Filtration Rate [...] actual GFR. Performed By: #### 2 4323-8 ####[facility] [id number] [place] [address] [place] Glucose [Mass/Vol] 103 mg/dL High 74-99 [facility] Comment on above: Order Comment: Gume escobedo Type: BLOOD SPECIMENOrdering Facility: [facility] Address: [address] [place] [address] Result Comment: The [place] Diabetes Association (ADA) provides guidance for cutoff [...] Standards of Medical Care in Diabetes 2016, [place] [employer]. Diabetes Care. 2016.39(Suppl 1). Performed By: #### 2 4323-8 ####[facility]ENTER[facility] [id number] [place] [address] [place] Potassium [Moles/Vol] 3.9 mmol/L Normal 3.7-5.1 [facility] Comment on above: Order Comment: Gume escobedo Type: BLOOD SPECIMENOrdering Facility: [facility] Address: [address] [id number] Performed By: #### 2 4323-8 ####[facility] CENTERLIA [id number] [place] [address] [place] Protein [Mass/Vol] 7.0 g/dL Normal 6.3-8.0 [facility] Comment on above: Order Comment: Speci men Type: BLOOD SPECIMENOrdering Facility: [facility] Address: [address] [place] [address] Performed By: #### 2 4323-8 ####[facility]ENTERNCLIA [id number] [place] [address] [place] Sodium [Moles/Vol] 136 mmol/L Normal 136-144 [facility] Comment on above: Order Comment: Speci men Type: BLOOD SPECIMENOrdering Facility: [facility] Address: [address] [place] [address] Performed By: #### 2 4323-8 ####[facility]ERNCA [id number] [place] [address] [place] Urea nitrogen [Mass/Vol] 5 mg/dL Low 7-21 [facility] Comment on above: Order Comment: Speci men Type: BLOOD SPECIMENOrdering Facility: [facility] Address: [address] [place] [address] Performed By: #### 2 4323-8 ####[facility]ERNCLIA [id number] [place] [address] [place] VED26wv 10-25-2024 ECG01 Normal [facility] PARVOVIRUS B19 IGG+Mon 10-25 PARVO B19 IGG, QUAL Positive Abnormal Negative [facility] Comment on above: Order Comment: Speci men Type: BLOOD SPECIMENOrdering Facility: [facility] Address: [address] [place] [address] Result Comment: Parv ovirus B19 virus IgG [...] Enzyme Immunoassay. Performed By: #### P ARV ####[facility] LABCLIA [id number] [place] [address] [place] PARVO B19 IGM, QUAL Negative Normal Negative [facility] Comment on above: Order Comment: Speci men Type: BLOOD SPECIMENOrdering Facility: [facility] Address: [address] [place] [address] Result Comment: Parv ovirus B19 virus IgM [...] Enzyme Immunoassay. Performed By: #### P ARV ####[facility] LABCLIA [id number] [place] [address] [place] URINE OB DIP B/OOrdered By: Renetta Petersen on 10-25-2024 Glucose Ql (U) Negative Neg mg/dL [facility] Protein.monoclonal (U) [Mass/Vol] Negative Neg mg/dL [facility] Urine Cultureon 10-20-2024 URC Urine Culture #1 Below infection level. Streptococcus agalactiae (B) [place] Count <1000 Mixed Gram Positive Organisms Mixed Gram Positive Organisms MIXC Mixed contaminants. Submit a new specimen if indicated. Streptococcus agalactiae (B): REACTION Ampicillin Islt STEF <=0.25 cefTRIAXone Islt STEF <=0.12 S Clindamycin.induced Susc Islt Linezolid Islt STEF <=2 S Vancomycin Islt STEF 0.5 S Normal [facility] Comment on above: Performed By: #### L 501.080 #### [facility] [address] [place], [address] CNPNon 10-19-2024 CNPN Normal [facility] URINE OB DIP B/Oon Glucose Ql (U) Negative Neg mg/dL [facility] Interpretation and review of laboratory results Normal [facility] Protein.monoclonal (U) [Mass/Vol] Negative Neg mg/dL [facility] Bedside Glucoseon 10-16-2024 [place] GLU 106 mg/dL Normal 74-106 [facility] Comment on above: Result Comment: ELLEN ZAMBRANO OF PATIENT CARE PER NURSING PROTOCOL Performed By: #### L 501.080 #### [facility] [address] [place], [address] Bilirubin Test strip Ql (U)O rdered By: Mariajose Nickerson on 10-16-2024 Bilirubin Ql (U) Negative Negative [facility] Gl[facility] deOrdered By: Mariajose Nickerson on 10-16-2024 Glucose [Mass/Vol] 106 mg/dL 74-106 [facility] Comment on above: MANAGEMENT OF PATIEN T CARE PER NURSING PROTOCOL Ketones Test strip Ql (U)Ord ered By: Mariajose Nickerson on 10-16-2024 Ketones Ql (U) Negative Negative [facility] Microscopic analysis of urin e for red blood cells (RBC)Ordered By: Mariajose Nickerson on 10-16-2024 Microscopic analysis of urine for red blood cells (RBC) 0 SEEN /hpf 0-5 [facility] Mucus LM Ql (Urine sed)Order ed By: Mariajose Nickerson on 10-16-2024 Mucus Ql (Urine sed) 0 SEEN /hpf [facility] Nitrite Test strip Ql (U)Ord ered By: Mariajose Nickerson on 10-16-2024 Nitrite Ql (U) Negative Negative [facility] OB Triage Physician Noteon 0 10-16-2024 OB Triage Physician Note [facility] Medical Records Department [address] [place] [address] OB Triage Physician Note 10/16/24 1838 MR#: [id number] Acct: [id number] Name: MELISSA BYRNE Rep #: [id number] : 1995 29 From: Mariajose Nickerson CNGardenia PCP: Dr. Jamari Byrne MD Status:REG CLI Y Location: [id number] HPI - General HPI Narrative MELISSA BYRNE, [...] Nickerson; Dr. Jamari Byrne MD Signed Normal [facility] Protein Test strip Ql (U)Ord ered By: Mariajose Nickerson on 10-16-2024 Protein Ql (U) 30 mg/dl High Negative [facility] Squamous epithelial cells de tection in urine sediment by light microscopyOrdered By: Mariajose Nickerson on 10-16-2024 Epithelial cells.squamous LM Ql (Urine sed) 5-10 SEEN /hpf 10-16 [facility] Urinalysis, Completeon 10-16 EPI,SQUAMOUS 5-10 SEEN Normal 10-16 [facility] Comment on above: Order Comment: CLEAN CATCH Performed By: #### L 501.080 #### [facility] [address] [place], [address] BACTERIA 0 SEEN Normal None Seen [facility] Comment on above: Order Comment: CLEAN CATCH Performed By: #### L 501.080 #### [facility] [address] [place], [address] Mucus Ql (Urine sed) [address] [facility] Comment on above: Order Comment: CLEAN CATCH Performed By: #### L 501.080 #### [facility] [address] [place], [address] RBC 0 SEEN Normal 0-5 [facility] Comment on above: Order Comment: CLEAN CATCH Performed By: #### L 501.080 #### [facility] [address] [place], [address] WBC 0 SEEN Normal 0-5 [facility] Comment on above: Order Comment: CLEAN CATCH Performed By: #### L 501.080 #### [facility] [address] [place], [address] Urine clarityOrdered By: Yoli Nickerson on 10-16-2024 Clarity (U) Sl. Cloudy Clear [facility] Urine color determinationOrd ered By: Mariajose Nickerson on 10-16-2024 Color (U) Yellow Yellow [facility] Urine cultureOrdered By: Lizet Julian on 10-16-2024 Bacteria identified Cx Nom (U) Streptococcus agalactiae (B) Abnormal [facility] Bacteria identified Cx Nom (U) Positive Abnormal [facility] Urine glucose detectionOrder ed By: Mariajose Nickerson on 10-16-2024 Glucose Ql (U) 50 mg/dl High Normal [facility] Urine leukocyte esterase det ection by dipstickOrdered By: Mariajose Nickerson on 10-16-2024 Leukocyte esterase Test strip Ql (U) 25 /ul High Negative [facility] Urine pHOrdered By: Mariajose Nickerson on 10-16-2024 pH (U) 6.0 [pH] 5.0 - 8.0 [facility] Urine sediment bacteria coun t by microscopy (number/high power field)Ordered By: Mariajose Nickerson on 10-16-2024 Bacteria LM.HPF (Urine sed) [#/Area] 0 /[HPF] None Seen [facility] Urine specific gravity measu rementOrdered By: Mariajosemanpreet Nickerson on 10-16-2024 Specific gravity (U) [Rel density] 1.025 1.002-1.030 [facility] Urine urobilinogen measureme ntOrdered By: Mariajose Plotcher on 10-16-2024 Urobilinogen Ql (U) 1 mg/dl High Normal [facility] White blood cell countOrdere d By: Mariajosemanpreet Nickerson on 10-16-2024 White blood cell count 0 SEEN /hpf 0-5 [facility] ECHO FETALon 10-12-2024 + -----+-+ Pediatric Cardiology Echocardiogram Report + -----+-+ NAME: MELISSA BYRNE : 1995 PT ID#: [id number] Age: 29 years Sex: F STUDY DATE: 10/12/2024 10:05:33 AM ADA: 12/18/2024 GA: 30w3d Image Quality: Technically difficult and adequate. Referring Physician: Pamela Haskins Diagnosing Physician: Pamela Haskins [employer] Admin: Melissa Pineda RDMS, RDCS 2nd [employer] Admin: Diagnosis: [id number] abnormality and damage, single fetus or unspecified Procedure Code: 25757, 70076, 40319 Echo, Complete (w/Doppler and color) Exam Location: [facility] (). Indications: Evaluate cardiac anatomy and function [...] rate and rhythm. HR 140 bpm Mechanical [place] 84 ms Segmental Anatomy, Cardiac Position and [...] content not included)... [facility] FETALon 10-12-2024 + --- -----+-+ Pediatric Cardiology Echocardiogram Report + -----+-+ NAME: MELISSA BYRNE : 1995 PT ID#: [id number] Age: 29 years Sex: F STUDY DATE: 10/12/2024 10:05:33 AM ADA: 12/18/2024 GA: 30w3d Image Quality: Technically difficult and adequate. Referring Physician: Pamela Haskins Diagnosing Physician: Pamela Haskins Windows Systems Admin: Melissa Pineda RDMS, GARCIA 2nd Windows Systems Admin: Diagnosis: O35.8RL4Fyrifpddx abnormality and damage, single fetus or unspecified Procedure Code: 32113, 34763, 45518 Echo, Complete (w/Doppler and color) Exam Location: [facility] (). Indications: Evaluate cardiac anatomy and function [...] rate and rhythm. HR 140 bpm Mechanical WA 84 ms Segmental Anatomy, Cardiac Position and [...] on 10/12/2024 at 12:38:17 PM Final CC [facility] Image : [id number] goDynamicsSISUID See Link below for Image Normal [facility] CNPNon 10-08-2024 CNPN Normal [facility] Bacteria Ur Culton 5 Bacteria identified Cx Nom (U) ORGANISM ID: 1 10,000 -<50,000 CFU/ml Normal urogenital hima Streptococcus agalactiae (Group B streptococcus) was identified in this specimen, which is clinically relevant if the individual is . Normal [facility] Comment on above: Performed By: #### 6 30-4 ####[facility] LABCLIA [id number] [place] [address] [place] Prot/Creat Uron 10-04-2024 Protein/Creatinine (U) [Mass ratio] 0.10 mg/mg Normal <0.15 [facility] Comment on above: Order Comment: Speci men Type: URINE SPECIMENOrdering Facility: [facility] Address: [address] [place] [address] Result Comment: Adul t Proteinuria Categories:<0.15 mg/mg is considered normal to mildly increased0.15 - 0.50 mg/mg is considered moderately increased>0.50 mg/mg is considered severely increasedKDIGO. (2013). KDIGO 2012 Clinical Practice Guideline for the Evaluation and Management of Chronic Kidney Disease. Official Journal of the International Society of Nephrology, 3(1), 1-150. Performed By: #### 2 890-2 ####[facility] [id number] [place] [address] [place] Protein/Creatinine (U) [Mass ratio]on 10-04-2024 Creatinine (U) [Mass/Vol] 67.2 mg/dL Normal 20.0-300.0 [facility] Comment on above: Order Comment: Speci men Type: URINE SPECIMENOrdering Facility: [facility] Address: [address] [place] [address] Performed By: #### 2 890-2 ####[facility] [id number] [place] [address] [place] Protein (U) [Mass/Vol] 7 mg/dL Normal 0-20 [facility] Comment on above: Order Comment: Speci men Type: URINE SPECIMENOrdering Facility: [facility] Address: [address] [place] [address] Performed By: #### 2 890-2 ####[facility] [id number] [place] [id number] [place] CNPNon 10-02-2024 CNPN Normal [facility] CNPNon 09-27-2024 CNPN Normal [facility] OB Triage Physician Noteon 0 09-25-2024 OB Triage Physician Note [facility] Medical Records Department [address] [place] [address] OB Triage Physician Note 09/25/24 0934 MR#: [id number] Acct: [id number] Name: MELISSA BYRNE Rep #: [id number] : 1995 29 From: Leonie Waldron CNM PCP: Dr. Jamari Byrne MD Status:DEP CLI Y Location: [facility] HPI - General HPI Narrative MELISSA BYRNE, [...] D/C home 09/25/24 0936 Date Leonie Waldron [facility] Cosigner Signature (if applicable): Date CC: [facility] Leonie Waldron; Dr. Jamari Byrne MD Signed Normal [facility] BACTERIAL VAGINOSIS NAATon 0 09-24-2024 Lactobacillus crispatus+gasseri+dez senii + Gardnerella vaginalis + Atopobium vaginae rRNA SUMIT+probe Ql (Vag fld) Detected Abnormal Not detected [facility] Comment on above: Order Comment: Speci men Type: SWABOrdering Facility: [facility] Address: [address] [place] [address] Performed By: #### C VTV, BVAMP ####[facility] LABCLIA [id number] [place] [address] [place] Bacteria Ur Culton 5 Bacteria identified Cx Nom (U) ORGANISM ID: 1 10,000 -<50,000 CFU/ml Normal urogenital hima Normal [facility] Comment on above: Performed By: #### 6 30-4 ####[facility] LABCLIA [id number] [place] [address] [place] JOSUÉ/TRICHOMONAS NAATon 0 09-24-2024 C. glabrata RNA SUMIT+probe Ql (Vag fld) Not detected Normal Not detected [facility] Comment on above: Order Comment: Speci men Type: SWABOrdering Facility: [facility] Address: [address] [place] [address] Performed By: #### C VTV, BVAMP ####[facility] LABCLIA [id number] [address] [place] Josué sp DNA SUMIT+probe Ql (Vag fld) Not detected Normal Not detected [facility] Comment on above: Order Comment: Speci men Type: SWABOrdering Facility: [facility] Address: [address] [place] [address] Result Comment: The Josué species group target includes C. albicans, C. tropicalis, C. parapsilosis, and C. dubliniensis. Performed By: #### C VTV, BVAMP ####[facility] LABCLIA [id number] [address] [place] T. vaginalis DNA SUMIT+probe Ql (Unsp spec) Not detected Normal Not detected [facility] Comment on above: Order Comment: Speci men Type: SWABOrdering Facility: [facility] Address: [address] [place] [address] Performed By: #### C VTV, BVAMP ####[facility] LABCLIA [id number] [place] [address] [place] CNOVon 09-24-2024 CNOV Normal [facility] CNPNon 09-24-2024 CNPN Normal [facility] UA DIP, URINE (POC)on 2024 BILIRUBIN UA (POCT) Negative Negative [facility] CLARITY UA (POCT) Clear [facility] COLOR UA (POCT) Yellow [facility] GLUCOSE UA (POCT) Negative Negative mg/dL [facility] Hemoglobin Ql (U) Negative Negative [facility] Interpretation and review of laboratory results Abnormal [facility] KETONE UA (POCT) 15 mg/dL Abnormal Negative [facility] LEUKOCYTES UA (POCT) Moderate Abnormal Negative [facility] NITRITE UA (POCT) Negative Negative [facility] PH UA (POCT) 7 4.5 - 8.0 [facility] Protein Ql (U) Negative Negative mg/dL [facility] SPECIFIC GRAVITY UA (POCT) 1.02 1.005 - 1.030 [facility] UROBILINOGEN UA (POCT) 1 Normal E.U./dL [facility] Location:[facility], [address], [place], [place], [id number] [place] [address] POINT OF CARE [facility] CNOVon 09-20-2024 CNOV Normal [facility] HEMOGLOBIN A1C (POC)on 09-20 HbA1c (Bld) [Mass fraction] 5.2 % 4.3 - 5.6 % [facility] Comment on above: Location:[facility], [address] [place] [address], [facility] Point of care (POC) Hemoglobin A1c (HGBA1C) [...] specific diabetes management situations: The POC device gasoline catalyst operator provides a normal range of 4.2% to 6.5% for the HGBA1C POC test. However, the [place] [employer] guidelines indicate that patients with [...] anemia) that alter red blood cell lifespan. [facility] CNPNon 09-11-2024 CNPN Normal [facility] CBC W Auto Differential pane l (Bld)on 09-08-2024 Basophils (Bld) [#/Vol] 0.03 10*3/uL Normal <0.11 [facility] Comment on above: Order Comment: Speci men Type: BLOOD SPECIMENOrdering Facility: [facility] Address: [address] [place] [address] Performed By: #### 5 7021-8 ####[facility]ENTERLIA [id number] [place] [address] [place] Basophils/100 WBC (Bld) 0.3 % Normal [facility] Comment on above: Order Comment: Speci men Type: BLOOD SPECIMENOrdering Facility: [facility] Address: [address] [place] [address] Performed By: #### 5 7021-8 ####[facility] [id number] [place] [address] [place] Differential cell count method Nom (Bld) Auto Normal [facility] Comment on above: Order Comment: Speci men Type: BLOOD SPECIMENOrdering Facility: [facility] Address: [address] [place] [address] Performed By: #### 5 7021-8 ####[facility] [id number] [place] [address] [place] Eosinophils (Bld) [#/Vol] 0.15 10*3/uL Normal <0.46 [facility] Comment on above: Order Comment: Speci men Type: BLOOD SPECIMENOrdering Facility: [facility] Address: [address] [place] [address] Performed By: #### 5 7021-8 ####[facility] [id number] [place] [address] [place] Eosinophils/100 WBC (Bld) 1.7 % Normal [facility] Comment on above: Order Comment: Speci men Type: BLOOD SPECIMENOrdering Facility: [facility] Address: [address] [place] [address] Performed By: #### 5 7021-8 ####[facility] AMARILYSLIA [id number] [place] [address] [place] Erythrocyte distribution width (RBC) [Ratio] 13.6 % Normal 11.5-15.0 [facility] Comment on above: Order Comment: Speci men Type: BLOOD SPECIMENOrdering Facility: [facility] Address: [address] [place] [address] Performed By: #### 5 7021-8 ####[facility]ERKLAUSLIA [id number] [place] [address] [place] Hematocrit (Bld) [Volume fraction] 35.0 % Low 36.0-46.0 [facility] Comment on above: Order Comment: Speci men Type: BLOOD SPECIMENOrdering Facility: [facility] Address: [address] [place] [address] Performed By: #### 5 7021-8 ####[facility]ENTERVERNON [id number] [place] [address] [place] Hemoglobin (Bld) [Mass/Vol] 12.2 g/dL Normal 11.5-15.5 [facility] Comment on above: Order Comment: Speci men Type: BLOOD SPECIMENOrdering Facility: [facility] Address: [address] [place] [address] Performed By: #### 5 7021-8 ####[facility]ERKLAUSLIA [id number] [place] [address] [place] Immature granulocytes (Bld) [#/Vol] 0.06 10*3/uL Normal <0.10 [facility] Comment on above: Order Comment: Speci men Type: BLOOD SPECIMENOrdering Facility: [facility] Address: [address] [place] [address] Performed By: #### 5 7021-8 ####[facility]ENTERNCLIRaymond [id number] [place] [address] [place] Immature granulocytes/100 WBC (Bld) 0.7 % Normal [facility] Comment on above: Order Comment: Speci men Type: BLOOD SPECIMENOrdering Facility: [facility] Address: [address] [place] [address] Performed By: #### 5 7021-8 ####[facility]ERNCA [id number] [place] [address] [place] Lymphocytes (Bld) [#/Vol] 2.07 10*3/uL Normal 1.00-4.00 [facility] Comment on above: Order Comment: Speci men Type: BLOOD SPECIMENOrdering Facility: [facility] Address: [address] [place] [address] Performed By: #### 5 7021-8 ####[facility] [id number] [place] [address] [place] Lymphocytes/100 WBC (Bld) 23.7 % Normal [facility] Comment on above: Order Comment: Speci men Type: BLOOD SPECIMENOrdering Facility: [facility] Address: [address] [place] [address] Performed By: #### 5 7021-8 ####[facility]ERNCLI [id number] [place] [address] [place] MCH (RBC) [Entitic mass] 30.5 pg Normal 26.0-34.0 [facility] Comment on above: Order Comment: Speci men Type: BLOOD SPECIMENOrdering Facility: [facility] Address: [address] [place] [address] Performed By: #### 5 7021-8 ####[facility]ERNCLI [id number] [place] [address] [place] MCHC (RBC) [Mass/Vol] 34.9 g/dL Normal 30.5-36.0 [facility] Comment on above: Order Comment: Speci men Type: BLOOD SPECIMENOrdering Facility: [facility] Address: [address] [place] [address] Performed By: #### 5 7021-8 ####[facility] VICKYYOKASTA [id number] [place] [address] [place] MCV (RBC) [Entitic vol] 87.5 fL Normal 80.0-100.0 [facility] Comment on above: Order Comment: Speci men Type: BLOOD SPECIMENOrdering Facility: [facility] Address: [address] [place] [address] Performed By: #### 5 7021-8 ####[facility]ERNCRaymond [id number] [place] [address] [place] Monocytes (Bld) [#/Vol] 0.37 10*3/uL Normal <0.87 [facility] Comment on above: Order Comment: Speci men Type: BLOOD SPECIMENOrdering Facility: [facility] Address: [address] [place] [address] Performed By: #### 5 7021-8 ####[facility] [id number] [place] [address] [place] Monocytes/100 WBC (Bld) 4.2 % Normal [facility] Comment on above: Order Comment: Speci men Type: BLOOD SPECIMENOrdering Facility: [facility] Address: [address] [place] [address] Performed By: #### 5 7021-8 ####[facility]ENTERLI [id number] [place] [address] [place] Neutrophils (Bld) [#/Vol] 6.04 10*3/uL Normal 1.45-7.50 [facility] Comment on above: Order Comment: Speci men Type: BLOOD SPECIMENOrdering Facility: [facility] Address: [address] [place] [address] Performed By: #### 5 7021-8 ####[facility]PITALWKLAUSLIA [id number] [place] [address] [place] Neutrophils/100 WBC (Bld) 69.4 % Normal [facility] Comment on above: Order Comment: Speci men Type: BLOOD SPECIMENOrdering Facility: [facility] Address: [address] [place] [address] Performed By: #### 5 7021-8 ####[facility]ENTERLI [id number] [place] [address] [place] Nucleated RBC (Bld) [#/Vol] 10*3/uL Normal <0.01 [facility] Comment on above: Order Comment: Speci men Type: BLOOD SPECIMENOrdering Facility: [facility] Address: [address] [place] [address] Performed By: #### 5 7021-8 ####[facility] [id number] [place] [address] [place] Nucleated RBC/100 WBC (Bld) [Ratio] 0.0 /100 WBC Normal [facility] Comment on above: Order Comment: Speci men Type: BLOOD SPECIMENOrdering Facility: [facility] Address: [address] [place] [address] Performed By: #### 5 7021-8 ####[facility] [id number] [place] [address] [place] Platelet mean volume (Bld) [Entitic vol] 9.5 fL Normal 9.0-12.7 [facility] Comment on above: Order Comment: Speci men Type: BLOOD SPECIMENOrdering Facility: [facility] Address: [address] [place] [address] Performed By: #### 5 7021-8 ####[facility]ERNCLI [id number] [place] [address] [place] Platelets (Bld) [#/Vol] 282 10*3/uL Normal 150-400 [facility] Comment on above: Order Comment: Speci men Type: BLOOD SPECIMENOrdering Facility: [facility] Address: [address] [place] [address] Performed By: #### 5 7021-8 ####[facility]ERNCLIA [id number] [place] [address] [place] RBC (Bld) [#/Vol] 4.00 10*6/uL Normal 3.90-5.20 [facility] Comment on above: Order Comment: Speci men Type: BLOOD SPECIMENOrdering Facility: [facility] Address: [address] [place] [address] Performed By: #### 5 7021-8 ####[facility]ERNCA [id number] [place] [address] [place] WBC (Bld) [#/Vol] 8.72 10*3/uL Normal 3.70-11.00 [facility] Comment on above: Order Comment: Speci men Type: BLOOD SPECIMENOrdering Facility: [facility] Address: [address] [place] [address] Performed By: #### 5 7021-8 ####[facility]ENTERLIA [id number] [place] [address] [place] Reagin and Treponema pallidu m IgG and IgM [Interp]on 09-08-2024 T. pallidum IgG+IgM IA Ql (S) Non-Reactive Nonreactive [facility] T. pallidum IgG+IgM IA Ql (S) Non-Reactive Normal Nonreactive [facility] Comment on above: Order Comment: Speci men Type: BLOOD SPECIMENOrdering Facility: [facility] Address: [address] [place] [address] Performed By: #### 7 3752-8 ####[facility] LABCLIA [id number] [place] [id number] [place] Reagin+T pallidum IgG+IgM Se rPl-Impon 09-08-2024 Reagin and Treponema pallidum IgG and IgM [Interp] Cannot exclude recent Treponemal infection if specimen collected within 7-10 days after appearance of suspect lesions or 2-3 weeks after an exposure. Clinical correlation is required. Normal [facility] Comment on above: Order Comment: Speci men Type: BLOOD SPECIMENOrdering Facility: [facility] Address: [address] [place] [address] Performed By: #### 7 3752-8 ####[facility] LABCLIA [id number] [place] [address] [place] SYPHILIS TREPONEMAL W/REFLEX on 09-08-2024 Reagin and Treponema pallidum IgG and IgM [Interp] Cannot exclude recent Treponemal infection if specimen collected within 7-10 days after appearance of suspect lesions or 2-3 weeks after an exposure. Clinical correlation is required. [facility] 09-07-2024 CNPN Normal [facility] Examination level ultrasound on 09-03-2024 [facility] Examination level ultrasound on 09-02-2024 Radiology Study observation (narrative) [facility] 08-30-2024 CNPN Normal [facility] 08-24-2024 [facility] FETALon 08-24-2024 + --- -----+-+ Pediatric Cardiology Echocardiogram Report + -----+-+ NAME: MELISSA BYRNE : 1995 PT ID#: [id number] Age: 29 years Sex: F STUDY DATE: 08/24/2024 12:29:33 PM ADA: 12/18/2024 GA: 23w3d Image Quality: Technically difficult and inadequate. Referring Physician: Pooja Latham Diagnosing Physician: Pamela Haskins Windows Systems Admin: Idalmis Hough [facility] 2nd Windows Systems Admin: Diagnosis: O35.8ZR5Duatnggpo abnormality and damage, single fetus or unspecified Procedure Code: 13325, 57985, 81512 Echo, Complete (w/Doppler and color) Exam Location: [facility] (). Indications: Evaluate cardiac anatomy and function [...] rate and rhythm. HR 149 bpm Mechanical WA 110 ms Segmental Anatomy, Cardiac Position and [...] 08/24/2024 at 1:34:49 PM Final (Updated) CC [facility] Image : [id number] goDynamicsSISUID See Link below for Image Normal [facility] 08-20-2024 [facility] Normal [facility] 08-18-2024 [facility] Normal [facility] 08-14-2024 [facility] Normal [facility] 08-10-2024 CNPN Normal [facility] Examination level ultrasound on 08-10-2024 Indication Detailed [...] 13 oz EFW by: [place] (HC-AC-FL) Extended Psychologist Educational 7.6 mm CM 5.7 mm 61% Nicolaides [...] normal LVOT view: normal 3-vessel view: normal 1-aqmuaw-cnpfeoz view: normal Heart / Thorax Situs: situs [...] Read By: Pooja Latham M.D. MATERNAL MEDICINE [facility] Radiology Study observation (narrative) [facility] URINE OB DIP B/Oon Glucose Ql (U) Negative Neg mg/dL [facility] Interpretation and review of laboratory results Normal [facility] Protein.monoclonal (U) [Mass/Vol] Negative Neg mg/dL [facility] CNPNon 08-08-2024 CNPN Normal [facility] CNPNon 08-01-2024 CNPN Normal [facility] CNOVon 07-26-2024 CNOV Normal [facility] CNOVon 07-23-2024 CNOV Normal [facility] CNPNon 07-20-2024 CNPN Normal [facility] CNPNon 07-14-2024 CNPN Normal [facility] Examination level ultrasound on 07-13-2024 Indication Early [...] 6 oz EFW by: [place] (HC-AC-FL) Extended Psychologist Educational 4.2 mm Extremities / Bony Struc FL / HC 0.17 44% Hadlock Other Structures FHR 152 bpm Anatomy Cranium: normal Lateral ventricles: normal Choroid plexus: normal Midline falx: normal Cerebellum: normal Cisterna magna: normal Lips: normal Profile: normal 4-chamber view: normal RVOT view: normal LVOT view: normal 3-vessel view: normal 5-armutc-knmpclr view: normal Heart / Thorax Diaphragm: normal [...] Snyder RDMS, RVT Read By: Pooja Latham, M.D. MATERNAL MEDICINE [facility] Radiology Study observation (narrative) [facility] URINE OB DIP B/OOrdered By: Rebeca Vazquez on 07-13-2024 Glucose Ql (U) 100 mg/dL Neg [facility] Interpretation and review of laboratory results Normal [facility] Protein.monoclonal (U) [Mass/Vol] Negative Neg mg/dL [facility] CNPNon 07-04-2024 CNPN Normal [facility] CNPNon 07-02-2024 CNPN Normal [facility] Influenza virus A and B and SARS-CoV-2 (COVID-19) identified SUMIT+probe Nom (Resp)on 07-01-2024 FLUAV RNA SUMIT+probe Ql (Resp) Detected Abnormal Not Detected [facility] FLUBV RNA SUMIT+probe Ql (Resp) Not detected Not Detected [facility] Interpretation and review of laboratory results Abnormal [facility] SARS-CoV-2 (COVID-19) RNA SUMIT+probe Ql (Resp) Not detected Not Detected [facility] This assay is an FDA-cleared, in vitro diagnostic nucleic acid amplification test for the qualitative detection and differentiation of SARS CoV-2/ Influenza A/B from nasopharyngeal specimens collected from individuals with signs and symptoms of respiratory tract infections, and has been validated for use at [facility]. Negative results do not preclude COVID-19/ Influenza A/B infections and should not be used as the sole basis for diagnosis, treatment, or other management decisions. Testing for SARS CoV-2 is recommended only for patients who meet current clinical and/or epidemiological criteria defined by federal, state, or local public health directives. [facility] FLUAV RNA SUMIT+probe Ql (Resp) Detected Abnormal Not Detected [facility] Comment on above: Order Comment: OVER is reported when the result is greater than the clinically reportable range. Performed By: #### 5 8077-9 #### JACQUELYN LOPEZ ([id number]) [facility] ([facility]) [address] [place] [address] FLUBV RNA SUMIT+probe Ql (Resp) Not detected Normal Not Detected [facility] Comment on above: Order Comment: OVER is reported when the result is greater than the clinically reportable range. Performed By: #### 5 8077-9 #### JACQUELYN JOHN ([id number]) [facility] ([facility]) [address] [place] [address] SARS-CoV-2 (COVID-19) RNA SUMIT+probe Ql (Resp) Not detected Normal Not Detected [facility] Comment on above: Order Comment: OVER is reported when the result is greater than the clinically reportable range. Performed By: #### 5 8077-9 #### VALLADARES JOHN ([id number]) [facility] ([facility]) [address] [place] [address] XR CHEST 2 VIEWSon XR CHEST 2 VIEWS STUDY: Chest Radiographs; 07/01/2024 at 8:35 PM. INDICATION: Fever and cough.. COMPARISON: XR chest 10/23/2020. ACCESSION NUMBER(S): [id number] ORDERING CLINICIAN: SIXTO MYERS TECHNIQUE: Frontal and lateral chest. FINDINGS: CARDIOMEDIASTINAL SILHOUETTE: Cardiomediastinal silhouette is normal in size and configuration. LUNGS: Lungs are clear. ABDOMEN: No remarkable upper abdominal findings. BONES: No acute osseous changes. IMPRESSION: No focal pulmonary pathology. Signed by Leo Paris M.D. Normal [facility] XR Chest 2 Viewson No focal pulmonary pathology. Signed by Leo Paris M.D. TELERADIOLOGY STUDY: Chest Radiographs; 07/01/2024 at 8:35 PM. INDICATION: Fever and cough.. COMPARISON: XR chest 10/23/2020. ACCESSION NUMBER(S): [id number] ORDERING CLINICIAN: SIXTO MYERS TECHNIQUE: Frontal and lateral chest. FINDINGS: CARDIOMEDIASTINAL SILHOUETTE: Cardiomediastinal silhouette is normal in size and configuration. LUNGS: Lungs are clear. ABDOMEN: No remarkable upper abdominal findings. BONES: No acute osseous changes. TELERADIOLOGY Leo Paris MD - 07/01/2024 STUDY: Chest Radiographs; 07/01/2024 at 8:35 PM. INDICATION: Fever and cough.. COMPARISON: XR chest 10/23/2020. ACCESSION NUMBER(S): [id number] ORDERING CLINICIAN: SIXTO LOUIS TECHNIQUE: Frontal and lateral chest. FINDINGS: CARDIOMEDIASTINAL SILHOUETTE: Cardiomediastinal silhouette is normal in size and configuration. LUNGS: Lungs are clear. ABDOMEN: No remarkable upper abdominal findings. BONES: No acute osseous changes. IMPRESSION: No focal pulmonary pathology. Signed by Leo Paris M.D. [facility] Work Phone: Radiology Study observation (narrative) [facility] Work Phone: XR Chest 2 ViewsOrdered By: Leo Paris on 07-01-2024 [facility] Work Phone: CNPNon 06-28-2024 CNPN Normal [facility] CNPNon 06-25-2024 CNPN Normal [facility] CNPNon 06-22-2024 CNPN Normal [facility] CNPNon 06-19-2024 CNPN Normal [facility] nuchal translucency me asured by USon 06-15-2024 Indication First trimester anatomic survey Maternal obesity, BMI >30, Diabetes mellitus Impression The patient is referred for a first trimester anatomy scan including nuchal translucency measurement as clinically indicated. - Single, live, intrauterine . - Celebration rump length measurement is consistent with the [...] view: suboptimal 4-chamber view with color: suboptimal 6-omcfvm-zbzlulp view: suboptimal Abdominal cord insertion: normal Stomach: [...] Read By: Pooja Latham M.D. MATERNAL MEDICINE [facility] Radiology Study observation (narrative) [facility] [id number] PLUSon 06-15-2024 Cell-free DNA./Cell-free DNA.total Dosage of chromosome-specific cfDNA (cfDNA) [Molar fraction] 15% Normal [facility] Comment on above: Order Comment: Speci men Type: BLOOD SPECIMENOrdering Facility: [facility] Address: [address] [place] [id number] Performed By: #### M AT21 ####[facility] LABCLIA [id number] [facility] [place] [address] Chr 13+18+21+X+Y aneuploidy Dosage of chromosome-specific cfDNA Ql (cfDNA) Negative Normal [facility] Comment on above: Order Comment: Speci men Type: BLOOD SPECIMENOrdering Facility: [facility] Address: [address] [place] [address] Performed By: #### M AT21 ####[facility] LABCLIA [id number] [place] [address] Chr 21 trisomy Dosage of chromosome-specific cfDNA Ql (cfDNA) Negative Normal [facility] Comment on above: Order Comment: Speci men Type: BLOOD SPECIMENOrdering Facility: [facility] Address: [address] [place] [address] Performed By: #### M AT21 ####SEQUAhura ScientificM[facility] LABCLIA [id number] [place] [address] Chr X and Y aneuploidy risk Sequencing Ql (cfDNA) [Interp] Not detected Normal [facility] Comment on above: Order Comment: Speci men Type: BLOOD SPECIMENOrdering Facility: [facility] Address: [address] [place] [address] Result Comment: Not DetectedNot Detected Performed By: #### M AT21 ####SEQUAhura [facility] LABCLIA [id number] [place] [address] Citation Jorge (Reference lab test) Comment Normal [facility] Comment on above: Order Comment: Speci men Type: BLOOD SPECIMENOrdering Facility: [facility] Address: [address] [place] [address] Result Comment: 1. P gabriela ROBINS, et al. Jaqueline Med. 2012;14(3):296-305.2. Shellie LIAO et al. Prenat Diag. 2013;33(6):591-597.3. Paul C, et al. Clin Chem. 2015 Sep;61(4):608-616.4. Shira ROBINS, et al. Jaqueline Med. 2011;13(11):913-920.5. ACOG/SMFM Practice Bulletin No. 226, Mar 2020. Performed By: #### M AT21 ####[facility] LABCLIA [id number] [place] [address] Gestational age Estimated from conception date [place] Normal [facility] Comment on above: Order Comment: Speci men Type: BLOOD SPECIMENOrdering Facility: [facility] Address: [address] [place] [address] Performed By: #### M AT21 ####[facility] LABCLIA [id number] [place] [address] GESTATIONALAGE AGE > OR = 9W Yes Normal [facility] Comment on above: Order Comment: Speci men Type: BLOOD SPECIMENOrdering Facility: [facility] Address: [address] [place] [address] Performed By: #### M AT21 ####[facility] LABCLIA [id number] [place] [address] Laboratory comment Jorge (Report) Comment Normal [facility] Comment on above: Order Comment: Speci men Type: BLOOD SPECIMENOrdering Facility: [facility] Address: [address] [place] [address] Result Comment: The MaterniT(R) 21 PLUS laboratory-developed test (LDT)analyzes circulating cell-free DNA from a maternal bloodsample. This test is used for screening purposes and notdiagnostic. Clinical correlation is recommended. Validationdata on twin pregnancies is limited and the ability of thistest to detect aneuploidy in higher multiple gestations hasnot yet been validated. Performed By: #### M AT21 ####[facility] LABCLIA [id number] [place] [address] sales account director name Nom (Provider) Comment Normal [facility] Comment on above: Order Comment: Speci men Type: BLOOD SPECIMENOrdering Facility: [facility] Address: [address] [place] [address] Result Comment: This specimen showed an expected representation ofchromosome 21, 18 and 13 material. Clinical correlation issuggested.CommentValdemar Kearns MD, PhD, Director, [employer] Performed By: #### M AT21 ####[facility] LABCLIA [id number] [place] [address] LIMITATIONS OF THE TEST Comment Normal [facility] Comment on above: Order Comment: Specsaba escobedo Type: BLOOD SPECIMENOrdering Facility: [facility] Address: [address], [place] [address] Result Comment: Lynne grijalva the results of [...] and Fragmin(R)). Performed By: #### M AT21 ####[facility] LABCLIA [id number] [place] [address] Monosomy X risk Dosage of chromosome-specific cfDNA Ql (Plasma cell-free+WBC DNA) [Interp] Not detected Normal [facility] Comment on above: Order Comment: Speci men Type: BLOOD SPECIMENOrdering Facility: [facility] Address: [address] [place] [address] Performed By: #### M AT21 ####[facility] LABCLIA [id number] [place] [address] NEGATIVE PREDICTIVE VALUE Note Normal [facility] Comment on above: Order Comment: Speci men Type: BLOOD SPECIMENOrdering Facility: [facility] Address: [address] [place] [address] Result Comment: The Negative Predictive Value (NPV) for trisomy 21, 18, and13 is greater than 99%. The NPV for SCA and ESS cannot becalculated as SCA and ESS are only reported when anabnormality is detected. Performed By: #### M AT21 ####[facility] LABCLIA [id number] [place] [id number] NOTE Comment Normal [facility] Comment on above: Order Comment: Speci men Type: BLOOD SPECIMENOrdering Facility: [facility] Address: [address] [place] [address] Result Comment: See NotesBeckon, Inc., At[employer]. is a subsidiary of [employer], using the brand LabYattosrp. This test wasdeveloped and its performance characteristics determined byLabcorp. It has not been cleared or approved by the Foodand Drug Administration. This laboratory is certified underthe Clinical Laboratory Improvement Amendments (CLIA) asqualified to perform high complexity clinical laboratorytesting and accredited by the College of AmericanPathologists (CAP).If there is future clinical need for adding MaterniT GENOMEtesting, this specimen will be available until term.[facility] samples will not be retained beyond 60 days.[facility] patients will have to send a new sample forre-sequencing ([facility] Test Code: 320455). Performed By: #### M AT21 ####[facility] LABCLIA [id number] [facility] [place] [address] PERFORMANCE CHARACTERISTICS Note Normal [facility] Comment on above: Order Comment: Speci men Type: BLOOD SPECIMENOrdering Facility: [facility] Address: [address] [place] [address] Result Comment: ! Sex ! Accuracy: 99.4% !! !! Region (associated syndrome) ! Est. Sens# ! Est. Spec !! !! Trisomy 21 (Down Syndrome) ! 99.1% ! 99.9% !! !! Trisomy 18 (Pham Syndrome) ! >99.9% ! 99.6% !! !! Trisomy 13 (Patau Syndrome) ! 91.7% ! 99.7% !! !! Sex Chromosome Aneuploidies## ! 96.2% ! 99.7% !! !* As reported in [facility] database nstd37[https://www.[employer].nlm.nih.gov/dbvar/studies/nstd37/ ]# Estimated Sensitivity. Sensitivity estimated across theobserved size distribution of each syndrome [per ISCFleetwoodtabase nstd37] and across the range of fractionsobserved in routine clinical NIPT. Actual sensitivity canalso be influenced by other factors such as the size of theevent, total sequence counts, amplification bias, orsequence bias.## [place] gestation only. Performed By: #### M AT21 ####LodgeoIA [id number] [place] [address] POSITIVE PREDICTIVE VALUE N/A Normal [facility] Comment on above: Order Comment: Gume escobedo Type: BLOOD SPECIMENOrdering Facility: [facility] Address: [address] [place] [address] Performed By: #### M AT21 ####[employer] LABCLIA [id number] [place] [address] Reference Lab Test Method Comment Normal [facility] Comment on above: Order Comment: Gume escobedo Type: BLOOD SPECIMENOrdering Facility: [facility] Address: [address] [place] [address] Result Comment: See NotesCirculating cell-free DNA was [...] 8q, 5p, 4p, 1p) and trisomy of [id number] and 22. Performed By: #### M AT21 ####[employer] LABCLIA [id number] [place] [address] Sex Dosage of chromosome-specific cfDNA Nom (cfDNA) Comment Normal [facility] Comment on above: Order Comment: Speci men Type: BLOOD SPECIMENOrdering Facility: [facility] Address: [address] [place] [address] Result Comment: Cons istent with Female Performed By: #### M AT21 ####[employer] LABGesplanIA [id number] [place] [address] Test performance information Jorge (Unsp spec) Comment Normal [facility] Comment on above: Order Comment: Speci men Type: BLOOD SPECIMENOrdering Facility: [facility] Address: [address] [place] [address] Result Comment: The performance characteristics of the MaterniT(R) 21 PLUSlaboratory-developed test (LDT) have been determined in aclinical validation study with women at increasedrisk for chromosomal aneuploidy.[1-4] Performed By: #### M AT21 ####[employer] [facility] LABCLIA [id number] [place] [address] Trisomy 13 risk Dosage of chromosome-specific cfDNA Ql (cfDNA) [Interp] Negative Normal [facility] Comment on above: Order Comment: Speci men Type: BLOOD SPECIMENOrdering Facility: [facility] Address: [address] [place] [address] Performed By: #### M AT21 ####[facility] LABCLIA [id number] [place] [address] Trisomy 18 risk Dosage of chromosome-specific cfDNA Ql (Plasma cell-free+WBC DNA) [Interp] Negative Normal [facility] Comment on above: Order Comment: Speci men Type: BLOOD SPECIMENOrdering Facility: [facility] Address: [address] [place] [address] Performed By: #### M AT21 ####[facility] LABCLIA [id number] [place] [address] CNPNon 06-11-2024 CNPN Normal [facility] CNOVon 06-07-2024 CNOV Normal [facility] HEMOGLOBIN A1C (POC)on 06-07 HbA1c (Bld) [Mass fraction] 7.9 % Abnormal 4.3 - 5.6 % [facility] Comment on above: Location:[facility], [address] [place] [address], [facility] Point of care (POC) Hemoglobin A1c (HGBA1C) [...] specific diabetes management situations: The POC device gasoline catalyst operator provides a normal range of 4.2% to 6.5% for the HGBA1C POC test. However, the [place] [employer] guidelines indicate that patients with [...] Interpretation and review of laboratory results Abnormal [facility] CNPNon 06-05-2024 CNPN Normal [facility] CNPNon 06-01-2024 CNPN Normal [facility] URINE OB DIP B/Oon Glucose Ql (U) Negative Neg mg/dL [facility] Interpretation and review of laboratory results Normal [facility] Protein.monoclonal (U) [Mass/Vol] Negative Neg mg/dL [facility] CBC W Auto Differential pane l (Bld)on 05-21-2024 Basophils (Bld) [#/Vol] 0.05 10*3/uL [facility] Basophils/100 WBC (Bld) 0.6 % 0.0 - 2.0 % [facility] Eosinophils (Bld) [#/Vol] 0.18 10*3/uL [facility] Eosinophils/100 WBC (Bld) 2.3 % 0.0 - 6.0 % [facility] Erythrocyte distribution width (RBC) [Ratio] 12.1 % 11.5 - 14.5 % [facility] Hematocrit (Bld) [Volume fraction] 41.7 % 36.0 - 46.0 % [facility] Hemoglobin (Bld) [Mass/Vol] 14.3 g/dL 12.0 - 16.0 g/dL [facility] Immature granulocytes (Bld) [#/Vol] 0.01 10*3/uL [facility] Immature granulocytes/100 WBC (Bld) 0.1 % 0.0 - 0.9 % [facility] Comment on above: Immature Granulocyte Count (IG) includes promyelocytes, myelocytes and metamyelocytes but does not include bands. Percent differential counts (%) should be interpreted in the context of the absolute cell counts (cells/UL). Lymphocytes (Bld) [#/Vol] 3.2 10*3/uL [facility] Lymphocytes/100 WBC (Bld) 41.3 % 13.0 - 44.0 % [facility] MCH (RBC) [Entitic mass] 28.9 pg 26.0 - 34.0 pg [facility] MCHC (RBC) [Mass/Vol] 34.3 g/dL 32.0 - 36.0 g/dL [facility] MCV (RBC) [Entitic vol] 84 fL 80 - 100 fL [facility] Monocytes (Bld) [#/Vol] 0.49 10*3/uL [facility] Monocytes/100 WBC (Bld) 6.3 % 2.0 - 10.0 % [facility] Neutrophils (Bld) [#/Vol] 3.81 10*3/uL [facility] Comment on above: Percent differential counts (%) should be interpreted in the context of the absolute cell counts (cells/uL). Neutrophils/100 WBC (Bld) 49.4 % 40.0 - 80.0 % [facility] Nucleated RBC/100 WBC (Bld) [Ratio] 0 % [facility] Platelets (Bld) [#/Vol] 299 10*3/uL [facility] RBC (Bld) [#/Vol] 4.94 10*6/uL [facility] WBC (Bld) [#/Vol] 7.7 10*3/uL [facility] Basophils (Bld) [#/Vol] 0.05 x10*3/uL Normal 0.00-0.10 [facility] Comment on above: Performed By: #### 5 7021-8 #### JACQUELYN LOPEZ ([id number]) [facility] ([facility]) [address] [place] [address] Basophils/100 WBC (Bld) 0.6 % Normal 0.0-2.0 [facility] Comment on above: Performed By: #### 5 7021-8 #### JACQUELYN LOPEZ ([id number]) [facility] ([facility]) [address] [place] [address] 787[address] Eosinophils (Bld) [#/Vol] 0.18 x10*3/uL Normal 0.00-0.70 [facility] Comment on above: Performed By: #### 5 7021-8 #### JACQUELYN LOPEZ ([id number]) [facility] ([facility]) [address] [place] [address]002 Eosinophils/100 WBC (Bld) 2.3 % Normal 0.0-6.0 [facility] Comment on above: Performed By: #### 5 7021-8 #### JACQUELYN LOPEZ ([id number]) [facility] ([facility]) [address] [place] [address] 26835 Erythrocyte distribution width (RBC) [Ratio] 12.1 % Normal 11.5-14.5 [facility] Comment on above: Performed By: #### 5 7021-8 #### JACQUELYN LOPEZ ([id number]) [facility] ([facility]) [address] [place] [address]642 Hematocrit (Bld) [Volume fraction] 41.7 % Normal 36.0-46.0 [facility] Comment on above: Performed By: #### 5 7021-8 #### JACQUELYN LOPEZ ([id number]) [facility] ([facility]) [address] [place] [address] 97087 Hemoglobin (Bld) [Mass/Vol] 14.3 g/dL Normal 12.0-16.0 [facility] Comment on above: Performed By: #### 5 7021-8 #### JACQUELYN LOPEZ ([id number]) [facility] ([facility]) [address] [place] [address] 73837 Immature granulocytes (Bld) [#/Vol] 0.01 x10*3/uL Normal 0.00-0.70 [facility] Comment on above: Performed By: #### 5 7021-8 #### JACQUELYN LOPEZ ([id number]) [facility] ([facility]) [address] [place] [address] 08635 Immature granulocytes/100 WBC (Bld) 0.1 % Normal 0.0-0.9 [facility] Comment on above: Result Comment: Kaela ture Granulocyte Count (IG) includes promyelocytes, myelocytes and metamyelocytes but does not include bands. Percent differential counts (%) should be interpreted in the context of the absolute cell counts (cells/UL). Performed By: #### 5 7021-8 #### JACQUELYN LOPEZ ([id number]) [facility] ([facility]) [address] [place] [address] 30041 Lymphocytes (Bld) [#/Vol] 3.20 x10*3/uL Normal 1.20-4.80 [facility] Comment on above: Performed By: #### 5 7021-8 #### JACQUELYN LOPEZ ([id number]) [facility] ([facility]) [address] [place] [address] 18957 Lymphocytes/100 WBC (Bld) 41.3 % Normal 13.0-44.0 [facility] Comment on above: Performed By: #### 5 7021-8 #### JACQUELYN LOPEZ ([id number]) [facility] ([facility]) [address] [place] [address] 12263 MCH (RBC) [Entitic mass] 28.9 pg Normal 26.0-34.0 [facility] Comment on above: Performed By: #### 5 7021-8 #### JACQUELYN LOPEZ ([id number]) [facility] ([facility]) [address] [place] [address] 38628 MCHC (RBC) [Mass/Vol] 34.3 g/dL Normal 32.0-36.0 [facility] Comment on above: Performed By: #### 5 7021-8 #### JACQUELYN LOPEZ ([id number]) [facility] ([facility]) [address] [place] [address] 31652 MCV (RBC) [Entitic vol] 84 fL Normal 80-100 [facility] Comment on above: Performed By: #### 5 7021-8 #### JACQUELYN LOPEZ ([id number]) [facility] ([facility]) [address] [place] [address] 60012 Monocytes (Bld) [#/Vol] 0.49 x10*3/uL Normal 0.10-1.00 [facility] Comment on above: Performed By: #### 5 7021-8 #### JACQUELYN LOPEZ ([id number]) [facility] ([facility]) [address] [place] [address] 17245 Monocytes/100 WBC (Bld) 6.3 % Normal 2.0-10.0 [facility] Comment on above: Performed By: #### 5 7021-8 #### JACQUELYN LOPEZ ([id number]) [facility] ([facility]) [address] [place] [address] 90525 Neutrophils (Bld) [#/Vol] 3.81 x10*3/uL Normal 1.20-7.70 [facility] Comment on above: Result Comment: Perc ent differential counts (%) should be interpreted in the context of the absolute cell counts (cells/uL). Performed By: #### 5 7021-8 #### JACQUELYN LOPEZ ([id number]) [facility] ([facility]) [address] [place] [address] 39609 Neutrophils/100 WBC (Bld) 49.4 % Normal 40.0-80.0 [facility] Comment on above: Performed By: #### 5 7021-8 #### JACQUELYN LOPEZ ([id number]) [facility] ([facility]) [address] [place] [address] 20502 Nucleated RBC/100 WBC (Bld) [Ratio] 0.0 /100 WBCs Normal 0.0-0.0 [facility] Comment on above: Performed By: #### 5 7021-8 #### JACQUELYN LOPEZ ([id number]) [facility] ([facility]) [address] [place] [address] 40084 Platelets (Bld) [#/Vol] 299 x10*3/uL Normal 150-450 [facility] Comment on above: Performed By: #### 5 7021-8 #### JACQUELYN LOPEZ ([id number]) [facility] ([facility]) [address] [place] [address] 60360 RBC (Bld) [#/Vol] 4.94 x10*6/uL Normal 4.00-5.20 [facility] Comment on above: Performed By: #### 5 7021-8 #### JACQUELYN LOPEZ ([id number]) [facility] ([facility]) [address] [place] [address] 28756 WBC (Bld) [#/Vol] 7.7 x10*3/uL Normal 4.4-11.3 [facility] Comment on above: Performed By: #### 5 7021-8 #### JACQUELYN LOPEZ ([id number]) [facility] ([facility]) [address] [place] [address] 40898 Choriogonadotropin.beta subu niton 05-21-2024 [place] [address] m[IU]/mL High <5 [facility] Comment on above: Order Comment: OVER [...] By: #### 5 8077-9 #### VALLADARES JOHN ([id number]) [facility] ([facility]) [address] [place] [address] Comprehensive metabolic 2000 panelon 05-21-2024 Albumin BCP dye [Mass/Vol] 4.2 g/dL 3.4 - 5.0 g/dL [facility] ALP [Catalytic activity/Vol] 49 U/L 33 - 110 U/L [facility] ALT With P-5'-P [Catalytic activity/Vol] 20 U/L 7 - 45 U/L [facility] Comment on above: Patients treated wit h Sulfasalazine may generate falsely decreased results for ALT. Anion gap [Moles/Vol] 13 mmol/L 10 - 2 0 mmol/L [facility] AST With P-5'-P [Catalytic activity/Vol] 10 U/L 9 - 39 U/L [facility] Bilirubin [Mass/Vol] 0.5 mg/dL 0.0 - 1 .2 mg/dL [facility] Calcium [Mass/Vol] 9.8 mg/dL 8.6 - 10. 3 mg/dL [facility] Chloride [Moles/Vol] 103 mmol/L 98 - 10 7 mmol/L [facility] CO2 [Moles/Vol] 25 mmol/L 21 - 32 mmol/L [facility] Creatinine [Mass/Vol] 0.53 mg/dL 0.50 - 1.05 mg/dL [facility] eGFR - PINF [facility] Comment on above: Calculations of ascencion mated GFR are performed using the 2020 CKD-EPI Study Refit equation without the race variable for the IDMS-Traceable creatinine methods. https://jasn.asnjournals.org/content//ASN.667086 5621 Glucose [Mass/Vol] 150 mg/dL High 74 - 99 mg/dL [facility] Interpretation and review of laboratory results Abnormal [facility] Potassium [Moles/Vol] 3.7 mmol/L 3.5 - 5.3 mmol/L [facility] Protein [Mass/Vol] 7.4 g/dL 6.4 - 8.2 g/dL [facility] Sodium [Moles/Vol] 137 mmol/L 136 - 145 mmol/L [facility] Urea nitrogen [Mass/Vol] 14 mg/dL 6 - 23 mg/dL [facility] Albumin BCP dye [Mass/Vol] 4.2 g/dL Normal 3.4-5.0 [facility] Comment on above: Performed By: #### 2 4323-8 #### JACQUELYN LOPEZ ([id number]) [facility] ([facility]) [address] [place] [address] ALP [Catalytic activity/Vol] 49 U/L Normal 33-110 [facility] Comment on above: Performed By: #### 2 4323-8 #### JACQUELYN LOPEZ ([id number]) [facility] ([facility]) [address] [place] [address] 37265 ALT With P-5'-P [Catalytic activity/Vol] 20 U/L Normal 7-45 [facility] Comment on above: Result Comment: Shantal ents treated with Sulfasalazine may generate falsely decreased results for ALT. Performed By: #### 2 4323-8 #### JACQUELYN LOPEZ ([id number]) [facility] ([facility]) [address] [place] [address] 67826 Anion gap [Moles/Vol] 13 mmol/L Normal 10-20 [facility] Comment on above: Performed By: #### 2 4323-8 #### JACQUELYN LOPEZ ([id number]) [facility] ([facility]) [address] [place] [address] 80304 AST With P-5'-P [Catalytic activity/Vol] 10 U/L Normal 9-39 [facility] Comment on above: Performed By: #### 2 4323-8 #### JACQUELYN LOPEZ ([id number]) [facility] ([facility]) [address] [place] [address] Bilirubin [Mass/Vol] 0.5 mg/dL Normal 0.0-1.2 [facility] Comment on above: Performed By: #### 2 4323-8 #### JACQUELYN LOPEZ ([id number]) [facility] ([facility]) [address] [place] [address] 42761 Calcium [Mass/Vol] 9.8 mg/dL Normal 8.6-10.3 [facility] Comment on above: Performed By: #### 2 432-8 #### JACQUELYN LOPEZ ([id number]) [facility] ([facility]) [address] [place] [address] 51387 Chloride [Moles/Vol] 103 mmol/L Normal 98-107 [facility] Comment on above: Performed By: #### 2 432-8 #### JACQUELYN LOPEZ ([id number]) [facility] ([facility]) [address] [place] [address] 97547 CO2 [Moles/Vol] 25 mmol/L Normal 21-32 [facility] Comment on above: Performed By: #### 2 4323-8 #### JACQUELYN LOPEZ ([id number]) [facility] ([facility]) [address] [place] [address] 46864 Creatinine [Mass/Vol] 0.53 mg/dL Normal 0.50-1.05 [facility] Comment on above: Performed By: #### 2 4323-8 #### JACQUELYN LOPEZ ([id number]) [facility] ([facility]) [address] [place] [address] 00221 GFR/1.73 sq M.predicted MDRD (S/P/Bld) [Vol rate/Area] mL/min/{1.73_m2} Normal >60 [facility] Comment on above: Result Comment: Calc ulations of estimated GFR are performed using the 2020 CKD-EPI Study Refit equation without the race variable for the IDMS-Traceable creatinine methods. https://jasn.asnjournals.org/content/early/ASN.155279 2214 Performed By: #### 2 4323-8 #### JACQUELYN LOPEZ ([id number]) [facility] ([facility]) [address] [place] [address] Glucose [Mass/Vol] 150 mg/dL High 74-99 [facility] Comment on above: Performed By: #### 2 4323-8 #### JACQUELYN LOPEZ ([id number]) [facility] ([facility]) [address] [place] [address] 12437 Potassium [Moles/Vol] 3.7 mmol/L Normal 3.5-5.3 [facility] Comment on above: Performed By: #### 2 4323-8 #### JACQUELYN LOPEZ ([id number]) [facility] ([facility]) [address] [place] [address] Protein [Mass/Vol] 7.4 g/dL Normal 6.4-8.2 [facility] Comment on above: Performed By: #### 2 4323-8 #### JACQUELYN LOPEZ ([id number]) [facility] ([facility]) [facility] [place] [address] Sodium [Moles/Vol] 137 mmol/L Normal 136-145 [facility] Comment on above: Performed By: #### 2 4323-8 #### JACQUELYN LOPEZ ([id number]) [facility] ([facility]) [address] [place] [address] 69931 Urea nitrogen [Mass/Vol] 14 mg/dL Normal 6-23 [facility] Comment on above: Performed By: #### 2 4323-8 #### JACQUELYN LOPEZ ([id number]) [facility] ([facility]) [facility] [place] [address] HCG.beta subunit Qnon 2023 Interpretation and review of laboratory results Abnormal [facility] Total HCG measuremen t is performed using the [employer] Access Immunoassay which detects intact HCG and free beta HCG subunit. This test is not indicated for use as a tumor marker. HCG testing is performed using a different test methodology at [facility] than other [facility]. Direct result comparison should only be made within the same method. [facility] Urinalysis complete W Reflex Culture panel (U)on 05-21-2024 Appearance (U) Turbid Abnormal Clear [facility] Bacteria Auto (Urine sed) [#/Area] 2+ Abnormal NONE SEEN /HPF [facility] Bilirubin (U) [Mass/Vol] Negative NEGATIVE [facility] Color (U) Light-Yellow Light-Yellow , Yellow, Dark-Yellow [facility] Epithelial cells.squamous Auto (Urine sed) [#/Area] 10-25 (FEW) Reference range not established. /HPF [facility] Glucose Auto test strip (U) [Mass/Vol] OVER (4+) Abnormal Normal mg/dL [facility] Interpretation and review of laboratory results Abnormal [facility] Ketones (U) [Mass/Vol] Negative NEGATIVE mg/dL [facility] Leukocyte clumps Auto (Urine sed) [#/Area] RARE Reference range not established. /HPF [facility] Leukocyte esterase Auto test strip Ql (U) Negative NEGATIVE [facility] Mucus Auto (Urine sed) [#/Area] FEW Reference range not established. /LPF [facility] Nitrite Auto test strip Ql (U) Negative NEGATIVE [facility] pH (U) 6 [pH] 5.0, 5.5, 6.0, 6.5, 7.0, 7.5, 8.0 [facility] Protein (U) [Mass/Vol] 10 (TRACE) NEGATIVE, 10 (TRACE), 20 (TRACE) mg/dL [facility] RBC (U) [#/Vol] Negative NEGATIVE [facility] RBC Auto (Urine sed) [#/Area] 1-2 NONE, 1-2, 3-5 /HPF [facility] Specific gravity (U) [Rel density] 1.029 1.005 - 1.035 [facility] Urobilinogen (U) [Mass/Vol] 4 (2+) Abnormal Normal mg/dL [facility] Comment on above: Some pigments and me dications may cause a false positive urobilinogen. WBC Auto (Urine sed) [#/Area] 1-5 1-5, NONE /HPF [facility] OVER is reported whe n the result is greater than the clinically reportable range. [facility] Appearance (U) Turbid Normal Clear [facility] Comment on above: Order Comment: OVER is reported when the result is greater than the clinically reportable range. Performed By: #### 5 8077-9 #### JACQUELYN LOPEZ ([id number]) [facility] ([facility]) [address] [place] [address] Bacteria Auto (Urine sed) [#/Area] 2+ /HPF Abnormal NONE SEEN [facility] Comment on above: Performed By: #### 5 8077-9 #### JACQUELYN LOPEZ ([id number]) [facility] ([facility]) [address] [place] [address] Bilirubin (U) [Mass/Vol] Negative Normal NEGATIVE [facility] Comment on above: Order Comment: OVER is reported when the result is greater than the clinically reportable range. Performed By: #### 5 8077-9 #### JACQUELYN LOPEZ ([id number]) [facility] ([facility]) [address] [place] [address] Color (U) Light-Yellow Normal Light-Yellow , Yellow, Dark-Yellow [facility] Comment on above: Order Comment: OVER is reported when the result is greater than the clinically reportable range. Performed By: #### 5 8077-9 #### JACQUELYN LOPEZ ([id number]) [facility] ([facility]) [address] [place] [address] Epithelial cells.squamous Auto (Urine sed) [#/Area] 10-25 (FEW) Normal Reference range not established. [facility] Comment on above: Performed By: #### 5 8077-9 #### JACQUELYN LOPEZ ([id number]) [facility] ([facility]) [address] [place] [address] Glucose Auto test strip (U) [Mass/Vol] OVER (4+) Abnormal Normal [facility] Comment on above: Order Comment: OVER is reported when the result is greater than the clinically reportable range. Performed By: #### 5 8077-9 #### JACQUELYN LOPEZ ([id number]) [facility] ([facility]) [address] [place] [address] 13922 Ketones (U) [Mass/Vol] Negative Normal NEGATIVE [facility] Comment on above: Order Comment: OVER is reported when the result is greater than the clinically reportable range. Performed By: #### 5 8077-9 #### JACQUELYN LOPEZ ([id number]) [facility] ([facility]) [address] [place] [address] Leukocyte clumps Auto (Urine sed) [#/Area] RARE Normal Reference range not established. [facility] Comment on above: Performed By: #### 5 8077-9 #### JACQUELYN LOPEZ ([id number]) [facility] ([facility]) [address] [place] [address] 77051 Leukocyte esterase Auto test strip Ql (U) Negative Normal NEGATIVE [facility] Comment on above: Order Comment: OVER is reported when the result is greater than the clinically reportable range. Performed By: #### 5 8077-9 #### JACQUELYN LOPEZ ([id number]) [facility] ([facility]) [address] [place] [address] 79438 Mucus Auto (Urine sed) [#/Area] FEW Normal Reference range not established. [facility] Comment on above: Performed By: #### 5 8077-9 #### JACQUELYN LOPEZ ([id number]) [facility] ([facility]) [address] [place] [address] 42434 Nitrite Auto test strip Ql (U) Negative Normal NEGATIVE [facility] Comment on above: Order Comment: OVER is reported when the result is greater than the clinically reportable range. Performed By: #### 5 8077-9 #### JACQUELYN LOPEZ ([id number]) [facility] ([facility]) [address] [place] [address] 39620 pH (U) 6.0 [pH] Normal 5.0, 5.5, 6.0, 6.5, 7.0, 7.5, 8.0 [facility] Comment on above: Order Comment: OVER is reported when the result is greater than the clinically reportable range. Performed By: #### 5 8077-9 #### JACQUELYN LOPEZ ([id number]) [facility] ([facility]) [address] [place] [address] Protein (U) [Mass/Vol] 10 (TRACE) Normal NEGATIVE, 10 (TRACE), 20 (TRACE) [facility] Comment on above: Order Comment: OVER is reported when the result is greater than the clinically reportable range. Performed By: #### 5 8077-9 #### JACQUELYN LOPEZ ([id number]) [facility] ([facility]) [address] [place] [address] RBC (U) [#/Vol] Negative Normal NEGATIVE [facility] Comment on above: Order Comment: OVER is reported when the result is greater than the clinically reportable range. Performed By: #### 5 8077-9 #### JACQUELYN LOPEZ ([id number]) [facility] ([facility]) [address] [place] [address] RBC Auto (Urine sed) [#/Area] 1-2 Normal NONE, 1-2, 3-5 [facility] Comment on above: Performed By: #### 5 8077-9 #### JACQUELYN LOPEZ ([id number]) [facility] ([facility]) [address] [place], [place] [address] Specific gravity (U) [Rel density] 1.029 Normal 1.005-1.035 [facility] Comment on above: Order Comment: OVER is reported when the result is greater than the clinically reportable range. Performed By: #### 5 8077-9 #### JACQUELYN LOPEZ ([id number]) [facility] ([facility]) [address] [place] [address] 73329 Urobilinogen (U) [Mass/Vol] 4 (2+) Abnormal Normal [facility] Comment on above: Order Comment: OVER is reported when the result is greater than the clinically reportable range. Result Comment: Some pigments and medications may cause a false positive urobilinogen. Performed By: #### 5 8077-9 #### JACQUELYN LOPEZ ([id number]) [facility] ([facility]) [facility] [place] [address] WBC Auto (Urine sed) [#/Area] 1-5 Normal 1-5, NONE [facility] Comment on above: Performed By: #### 5 8077-9 #### JACQUELYN LOPEZ ([id number]) [facility] ([facility]) [facility] [place] [address] hCG, quantitative, on 05-21-2024 [place] [address] m[IU]/mL High [facility] Comment on above: Low-level positive H CG results can be seen in early , in gregoyr- or post-menopausal females due to normal pituitary HCG production, or with analytic interference. Repeat testing in 48-72 hours can aid in assessing for as results should double in this time period. FSH measurement is recommended in gregory- or post-menopausal females as concurrent elevation of FSH can support pituitary production as the source of the HCG elevation. [facility]-20-[facility]-17-2024 [facility] 05-10-2024 [facility] Normal [facility] 05-09-2024 [facility] BACTERIAL VAGINOSIS NAATon 1 07-07-2023 Lactobacillus crispatus+gasseri+dez senii + Gardnerella vaginalis + Atopobium vaginae rRNA SUMIT+probe Ql (Vag fld) Detected Abnormal Not detected [facility] Comment on above: Order Comment: Speci men Type: SWABOrdering Facility: [facility] Address: [address] [place] [address] Performed By: #### 3 6902-5, BVAMP ####[facility] LABCLIA [id number] [facility] [address] [id number] [address] [place] Bacteria Ur Culton 4 Bacteria identified Cx Nom (U) ORGANISM ID: 1 10,000 -<50,000 CFU/ml Normal urogenital hima Streptococcus agalactiae (Group B streptococcus) was identified in this specimen, which is clinically relevant if the individual is . Normal [facility] Comment on above: Performed By: #### 6 30-4 ####[facility] LABCLIA [id number] [place] [address] [place] C. trachomatis+N. gonorrhoea e DNA SUMIT+probe Ql (Unsp spec)on 05-07-2024 C. trachomatis rRNA SUMIT+probe Ql (Unsp spec) Not detected Normal Not detected [facility] Comment on above: Order Comment: Speci men Type: SWABOrdering Facility: [facility] Address: [address] [place] [address] Performed By: #### 3 6902-5, BVAMP ####[facility] LABCLIA [id number] [address] [place] N. gonorrhoeae rRNA SUMIT+probe Ql (Unsp spec) Not detected Normal Not detected [facility] Comment on above: Order Comment: Speci men Type: SWABOrdering Facility: [facility] Address: [address] [place] [address] Performed By: #### 3 6902-5, BVAMP ####[facility] LABCLIA [id number] [place] [address] [place] JOSUÉ/TRICHOMONAS NAATon 1 07-07-2023 C. glabrata RNA SUMIT+probe Ql (Vag fld) Not detected Normal Not detected [facility] Comment on above: Order Comment: Speci men Type: SWABOrdering Facility: [facility] Address: [address] [place] [address] Performed By: #### C VTV ####[facility] LABCLIA [id number] [place] [address] [place] Josué sp DNA SUMIT+probe Ql (Vag fld) Not detected Normal Not detected [facility] Comment on above: Order Comment: Speci men Type: SWABOrdering Facility: [facility] Address: [address] [place] [address] Result Comment: The Josué species group target includes C. albicans, C. tropicalis, C. parapsilosis, and C. dubliniensis. Performed By: #### C VTV ####[facility] LABCLIA [id number] [place] [address] [place] T. vaginalis DNA SUMIT+probe Ql (Unsp spec) Not detected Normal Not detected [facility] Comment on above: Order Comment: Speci men Type: SWABOrdering Facility: [facility] Address: [address] [place] [address] Performed By: #### C VTV ####[facility] LABCLIA [id number] [place] [address] [place] CARRIER SCREEN, STANDARDon 1 07-07-2023 CARRIER SCREEN RESULTS View results in Scanned Documents link when available. Normal [facility] Comment on above: Order Comment: Speci men Type: BLOOD SPECIMENOrdering Facility: [facility] Address: [address] [place] [address] Performed By: #### C RRSCN ####MYRIADCLIA [id number] [place] [address] CBC W Auto Differential pane l (Bld)on 05-07-2024 Basophils (Bld) [#/Vol] 0.04 10*3/uL Normal <0.11 [facility] Comment on above: Order Comment: Speci men Type: BLOOD SPECIMENOrdering Facility: [facility] Address: [address] [place] [address] Performed By: #### 5 7021-8 ####[facility] HAROLDO NGUYENVERNON [id number] [place] [address] [place] Basophils/100 WBC (Bld) 0.7 % Normal [facility] Comment on above: Order Comment: Speci men Type: BLOOD SPECIMENOrdering Facility: [facility] Address: [address] [place] [address] Performed By: #### 5 7021-8 ####[facility] [id number] [place] [address] [place] Differential cell count method Nom (Bld) Auto Normal [facility] Comment on above: Order Comment: Speci men Type: BLOOD SPECIMENOrdering Facility: [facility] Address: [address] [place] [address] Performed By: #### 5 7021-8 ####[facility]ERNCLIA [id number] [place] [address] [place] Eosinophils (Bld) [#/Vol] 0.14 10*3/uL Normal <0.46 [facility] Comment on above: Order Comment: Speci men Type: BLOOD SPECIMENOrdering Facility: [facility] Address: [address] [place] [address] Performed By: #### 5 7021-8 ####[facility]CLIA [id number] [place] [address] [place] Eosinophils/100 WBC (Bld) 2.3 % Normal [facility] Comment on above: Order Comment: Speci men Type: BLOOD SPECIMENOrdering Facility: [facility] Address: [address] [place] [address] Performed By: #### 5 7021-8 ####[facility]CLIA [id number] [place] [address] [place] Erythrocyte distribution width (RBC) [Ratio] 12.2 % Normal 11.5-15.0 [facility] Comment on above: Order Comment: Speci men Type: BLOOD SPECIMENOrdering Facility: [facility] Address: [address] [place] [address] Performed By: #### 5 7021-8 ####[facility]ENTERNCLI [id number] [place] [address] [place] Hematocrit (Bld) [Volume fraction] 42.1 % Normal 36.0-46.0 [facility] Comment on above: Order Comment: Speci men Type: BLOOD SPECIMENOrdering Facility: [facility] Address: [address] [place] [address] Performed By: #### 5 7021-8 ####[facility] CENTERKLAUSLIA [id number] [place] [address] [place] Hemoglobin (Bld) [Mass/Vol] 14.8 g/dL Normal 11.5-15.5 [facility] Comment on above: Order Comment: Speci men Type: BLOOD SPECIMENOrdering Facility: [facility] Address: [address] [place] [address] Performed By: #### 5 7021-8 ####[facility]ENTERKLAUSJORDAN [facility] [id number] [place] [address] [place] Immature granulocytes (Bld) [#/Vol] 10*3/uL Normal <0.10 [facility] Comment on above: Order Comment: Speci men Type: BLOOD SPECIMENOrdering Facility: [facility] Address: [address] [place] [address] Performed By: #### 5 7021-8 ####[facility] CENTERRUFINOA [id number] [place] [address] [place] Immature granulocytes/100 WBC (Bld) 0.2 % Normal [facility] Comment on above: Order Comment: Speci men Type: BLOOD SPECIMENOrdering Facility: [facility] Address: [address] [place] [address] Performed By: #### 5 7021-8 ####[facility]ENTERNCLIA [id number] [place] [address] [place] Lymphocytes (Bld) [#/Vol] 2.83 10*3/uL Normal 1.00-4.00 [facility] Comment on above: Order Comment: Speci men Type: BLOOD SPECIMENOrdering Facility: [facility] Address: [address] [place] [address] Performed By: #### 5 7021-8 ####[facility]ENTERMATHEUS [id number] [place] [address] [place] Lymphocytes/100 WBC (Bld) 46.6 % Normal [facility] Comment on above: Order Comment: Speci men Type: BLOOD SPECIMENOrdering Facility: [facility] Address: [address] [place] [address] Performed By: #### 5 7021-8 ####[facility]ENTERNCJORD[facility] [id number] [place] [address] [place] MCH (RBC) [Entitic mass] 28.7 pg Normal 26.0-34.0 [facility] Comment on above: Order Comment: Speci men Type: BLOOD SPECIMENOrdering Facility: [facility] Address: [address] [place] [address] Performed By: #### 5 7021-8 ####[facility] [id number] [place] [address] [place] MCHC (RBC) [Mass/Vol] 35.2 g/dL Normal 30.5-36.0 [facility] Comment on above: Order Comment: Speci men Type: BLOOD SPECIMENOrdering Facility: [facility] Address: [address] [place] [address] Performed By: #### 5 7021-8 ####[facility]ENTERNCJORD[facility] [id number] [place] [address] [place] MCV (RBC) [Entitic vol] 81.7 fL Normal 80.0-100.0 [facility] Comment on above: Order Comment: Speci men Type: BLOOD SPECIMENOrdering Facility: [facility] Address: [address] [place] [address] Performed By: #### 5 7021-8 ####[facility] MILLTOWNCLIA [id number] [place] [address] [place] Monocytes (Bld) [#/Vol] 0.37 10*3/uL Normal <0.87 [facility] Comment on above: Order Comment: Speci men Type: BLOOD SPECIMENOrdering Facility: [facility] Address: [address] [place] [address] Performed By: #### 5 7021-8 ####[facility] MILLTOWNCLIA [id number] [place] [address] [place] Monocytes/100 WBC (Bld) 6.1 % Normal [facility] Comment on above: Order Comment: Speci men Type: BLOOD SPECIMENOrdering Facility: [facility] Address: [address] [place] [address] Performed By: #### 5 7021-8 ####[facility] CENTERLIA [id number] [place] [address] [place] Neutrophils (Bld) [#/Vol] 2.68 10*3/uL Normal 1.45-7.50 [facility] Comment on above: Order Comment: Speci men Type: BLOOD SPECIMENOrdering Facility: [facility] Address: [address] [place] [address] Performed By: #### 5 7021-8 ####[facility] MILLTOWNCLIA [id number] [place] [address] [place] Neutrophils/100 WBC (Bld) 44.1 % Normal [facility] Comment on above: Order Comment: Speci men Type: BLOOD SPECIMENOrdering Facility: [facility] Address: [address] [place] [address] Performed By: #### 5 7021-8 ####[facility]ENTERNCLIA [id number] [place] [address] [place] Nucleated RBC (Bld) [#/Vol] 10*3/uL Normal <0.01 [facility] Comment on above: Order Comment: Speci men Type: BLOOD SPECIMENOrdering Facility: [facility] Address: [address] [place] [address] Performed By: #### 5 7021-8 ####[facility] CENTERKLAUSA [id number] [place] [address] [place] Nucleated RBC/100 WBC (Bld) [Ratio] 0.0 /100 WBC Normal [facility] Comment on above: Order Comment: Speci men Type: BLOOD SPECIMENOrdering Facility: [facility] Address: [address] [place] [address] Performed By: #### 5 7021-8 ####[facility]ENTERNCJORD[facility] [id number] [place] [address] [place] Platelet mean volume (Bld) [Entitic vol] 9.6 fL Normal 9.0-12.7 [facility] Comment on above: Order Comment: Speci men Type: BLOOD SPECIMENOrdering Facility: [facility] Address: [address] [place] [address] Performed By: #### 5 7021-8 ####[facility] CENTERKLAUSLIA [id number] [place] [address] [place] Platelets (Bld) [#/Vol] 301 10*3/uL Normal 150-400 [facility] Comment on above: Order Comment: Speci men Type: BLOOD SPECIMENOrdering Facility: [facility] Address: [address] [place] [address] Performed By: #### 5 7021-8 ####[facility] CENTERNCLIA [id number] [place] [address] [place] RBC (Bld) [#/Vol] 5.15 10*6/uL Normal 3.90-5.20 [facility] Comment on above: Order Comment: Speci men Type: BLOOD SPECIMENOrdering Facility: [facility] Address: [facility] [place] [address] Performed By: #### 5 7021-8 ####[facility] CENTERNCLIA [id number] [address] WBC (Bld) [#/Vol] 6.07 10*3/uL Normal 3.70-11.00 [facility] Comment on above: Order Comment: Speci men Type: BLOOD SPECIMENOrdering Facility: [facility] Address: [address] [place], [place] [address] [address] Performed By: #### 5 7021-8 ####[facility] CENTERNCLIA [id number] [address] [facility] Comprehensive metabolic 2000 panelOrdered By: Mikki Celaya on 05-07-2024 Albumin [Mass/Vol] 4.4 g/dL 3.9 - 4.9 g/dL [facility] ALP [Catalytic activity/Vol] 69 U/L 34 - 123 U/L [facility] ALT [Catalytic activity/Vol] 16 U/L 7 - 38 U/L [facility] Anion gap [Moles/Vol] 9 mmol/L 8 - 15 mmol/L [facility] AST [Catalytic activity/Vol] 10 U/L Low 13 - 35 U/L [facility] Bilirubin [Mass/Vol] 0.6 mg/dL 0.2 - 1 .3 mg/dL [facility] Calcium [Mass/Vol] 9.7 mg/dL 8.5 - 10. 2 mg/dL [facility] Chloride [Moles/Vol] 101 mmol/L 98 - 10 7 mmol/L [facility] CO2 [Moles/Vol] 23 mmol/L 22 - 30 mmol/L [facility] Creatinine [Mass/Vol] 0.43 mg/dL Low 0.58 - 0.96 mg/dL [facility] GFR/1.73 sq M.predicted among non-blacks MDRD (S/P/Bld) [Vol rate/Area] 135 mL/min/{1.73_m2} - PINF [facility] Comment on above: Estimated Glomerular Filtration Rate (eGFR) is calculated using the 202 CKD-EPI creatinine equation. This equation utilizes serum creatinine, sex, and age as parameters. The creatinine assay has traceable calibration to isotope dilution-mass spectrometry. Refer to KDIGO guidelines for clinical interpretation. In patients with unstable renal function, e.g. those with acute kidney injury, the eGFR may not accurately reflect actual GFR. Glucose [Mass/Vol] 216 mg/dL High 74 - 99 mg/dL [facility] Comment on above: The [place] Diabete s Association (ADA) provides guidance for [...] Standards of Medical Care in Diabetes 2016, [place] Diabetes Association. Diabetes Care. 2016.39(Suppl 1). Interpretation and review of laboratory results Abnormal [facility] Potassium [Moles/Vol] 3.9 mmol/L 3.7 - 5.1 mmol/L [facility] Protein [Mass/Vol] 7.3 g/dL 6.3 - 8.0 g/dL [facility] Sodium [Moles/Vol] 133 mmol/L Low 136 - 144 mmol/L [facility] Urea nitrogen [Mass/Vol] 7 mg/dL 7 - 21 mg/dL [facility] Comprehensive metabolic 2000 panelon 05-07-2024 Albumin [Mass/Vol] 4.4 g/dL Normal 3.9-4.9 [facility] Comment on above: Order Comment: Speci men Type: BLOOD SPECIMENOrdering Facility: [facility] Address: [address] [place] [address] Performed By: #### 2 4323-8 ####[facility] HAROLDOTRINITY HEALTH SYSTEM EAST CAMPUSRaymond [id number] [place] [address] [place] ALP [Catalytic activity/Vol] 69 U/L Normal 34-123 [facility] Comment on above: Order Comment: Speci men Type: BLOOD SPECIMENOrdering Facility: [facility] Address: [address] [place] [address] Performed By: #### 2 4323-8 ####[facility] HOSPITALWNCLIA [id number] [place] [address] [place] ALT [Catalytic activity/Vol] 16 U/L Normal 7-38 [facility] Comment on above: Order Comment: Speci men Type: BLOOD SPECIMENOrdering Facility: [facility] Address: [address] [place] [address] Performed By: #### 2 4323-8 ####[facility] [id number] [place] [address] [place] Anion gap [Moles/Vol] 9 mmol/L Normal 8-15 [facility] Comment on above: Order Comment: Speci men Type: BLOOD SPECIMENOrdering Facility: [facility] Address: [address] [place] [address] Performed By: #### 2 4323-8 ####[facility]ENTERNCJORDAN VAL[facility] [id number] [place] [address] [place] AST [Catalytic activity/Vol] 10 U/L Low 13-35 [facility] Comment on above: Order Comment: Speci men Type: BLOOD SPECIMENOrdering Facility: [facility] Address: [address] [place] [address] Performed By: #### 2 4323-8 ####[facility] [id number] [place] [address] [place] Bilirubin [Mass/Vol] 0.6 mg/dL Normal 0.2-1.3 [facility] Comment on above: Order Comment: Speci men Type: BLOOD SPECIMENOrdering Facility: [facility] Address: [address] [address] Performed By: #### 2 4323-8 ####[facility] HAROLDO MILLTOWNCLIA [id number] [place] [address] [place] Calcium [Mass/Vol] 9.7 mg/dL Normal 8.5-10.2 [facility] Comment on above: Order Comment: Speci men Type: BLOOD SPECIMENOrdering Facility: [facility] Address: [address] [place] [address] Performed By: #### 2 4323-8 ####[facility] MILLTOWNCLIA [id number] [place] [address] [place] Chloride [Moles/Vol] 101 mmol/L Normal 98-107 [facility] Comment on above: Order Comment: Speci men Type: BLOOD SPECIMENOrdering Facility: [facility] Address: [address] [place] [address] Performed By: #### 2 4323-8 ####[facility] MILLWNCLIA [id number] [place] [address] [place] CO2 [Moles/Vol] 23 mmol/L Normal 22-30 [facility] Comment on above: Order Comment: Speci men Type: BLOOD SPECIMENOrdering Facility: [facility] Address: [address] [place] [address] Performed By: #### 2 4323-8 ####[facility] MILLTOWNCLIA [id number] [place] [address] [place] Creatinine [Mass/Vol] 0.43 mg/dL Low 0.58-0.96 [facility] Comment on above: Order Comment: Speci men Type: BLOOD SPECIMENOrdering Facility: [facility] Address: [address] [place] [address] Performed By: #### 2 4323-8 ####[facility] MILLTOWNCLIA [id number] [place] [address] [place] Creatinine and Glomerular filtration rate.predicted panel (S/P/Bld) 135 mL/min/1.73m??? Normal >=60 [facility] Comment on above: Order Comment: Gume gregg Type: BLOOD SPECIMENOrdering Facility: [facility] Address: [address] [place] [address] Result Comment: Ascencion mated Glomerular Filtration Rate [...] actual GFR. Performed By: #### 2 4323-8 ####[facility] [id number] [place] [address] [place] Glucose [Mass/Vol] 216 mg/dL High 74-99 [facility] Comment on above: Order Comment: Gume escobedo Type: BLOOD SPECIMENOrdering Facility: [facility] Address: [address] [place] [address] Result Comment: The [place] Diabetes Association (ADA) provides guidance for cutoff [...] Standards of Medical Care in Diabetes 2016, [place] Diabetes Association. Diabetes Care. 2016.39(Suppl 1). Performed By: #### 2 4323-8 ####[facility] [id number] [place] [address] [place] Potassium [Moles/Vol] 3.9 mmol/L Normal 3.7-5.1 [facility] Comment on above: Order Comment: Speci men Type: BLOOD SPECIMENOrdering Facility: [facility] Address: [address] [place] [address] Performed By: #### 2 4323-8 ####[facility]ENTERNCJORD[facility] [id number] [place] [address] [place] Protein [Mass/Vol] 7.3 g/dL Normal 6.3-8.0 [facility] Comment on above: Order Comment: Speci men Type: BLOOD SPECIMENOrdering Facility: [facility] Address: [address] [place] [address] Performed By: #### 2 4323-8 ####[facility]ENTERNCJORD[facility] [id number] [place] [address] [place] Sodium [Moles/Vol] 133 mmol/L Low 136-144 [facility] Comment on above: Order Comment: Speci men Type: BLOOD SPECIMENOrdering Facility: [facility] Address: [address] [place] [address] Performed By: #### 2 4323-8 ####[facility] CENTERNCLIA [id number] [place] [address] [place] Urea nitrogen [Mass/Vol] 7 mg/dL Normal 7-21 [facility] Comment on above: Order Comment: Speci men Type: BLOOD SPECIMENOrdering Facility: [facility] Address: [address] [place] [address] Performed By: #### 2 4323-8 ####[facility]ENTERNCLIA [id number] [place] [address] [place] HBV surface Ag Ser Qlon 11-2 HBV surface Ag Ql (S) Negative Normal Negative [facility] Comment on above: Order Comment: Speci men Type: BLOOD SPECIMENOrdering Facility: [facility] Address: [address] [place] [address] Performed By: #### 5 195-3, 73978-6, 79120-7 ####[facility] LABCLIA [id number] [place] [address] [place] HCV Ab Ser Qlon 05-07-2024 HCV Ab Ql (S) Negative Normal Negative [facility] Comment on above: Order Comment: Speci men Type: BLOOD SPECIMENOrdering Facility: [facility] Address: [address] [place] [address] Result Comment: The result suggests no evidence of active infection with Hepatitis C virus. Should recent infection be suspected, repeat testing may be considered 4-6 weeks after this draw. Performed By: #### 1 6128-1 ####[facility] LABCLIA [id number] [place] [address] [place] HIV 1+2 Ab IA Qlon HIV 1 and 2 Ab IA.rapid Nom (S/P/Bld) Normal [facility] Comment on above: Order Comment: Speci men Type: BLOOD SPECIMENOrdering Facility: [facility] Address: [address] [place] [address] Result Comment: Test not indicated. Performed By: #### 5 195-3, 44585-7, 27512-9 ####[facility] LABCLIA [id number] [place] [address] [place] HIV 1+2 Ab+HIV1 p24 Ag IA Ql Non-Reactive Normal Nonreactive [facility] Comment on above: Order Comment: Speci men Type: BLOOD SPECIMENOrdering Facility: [facility] Address: [address] [place] [address] Performed By: #### 5 195-3, 65189-4, 09759-6 ####[facility] LABCLIA [id number] [place] [address] [place] HIV immunoassay testing algorithm interpretation (S/P/Bld) [Interp] Normal [facility] Comment on above: Order Comment: Speci men Type: BLOOD SPECIMENOrdering Facility: [facility] Address: [address] [place] [address] Result Comment: No e vidence of HIV-1 or HIV-2 infection. Should recent infection be suspected, repeat testing may be considered 2-3 weeks after this draw.[place] Rev. Code 3701.243(E): This information has been [...] or diagnoses. Performed By: #### 5 195-3, 30188-2, 87601-5 ####[facility] LABCLIA [id number] [address] [place] PAP TESTon 05-07-2024 ADEQUACY Satisfactory for interpretation. Normal [facility] Comment on above: Order Comment: Speci men Type: FLUID SPECIMENOrdering Facility: [facility] Address: [address] [place] [address] Performed By: #### L [id number] ####[facility] LABCLIA [id number] [address] [place] CASE REPORT Normal [facility] Comment on above: Order Comment: Speci men Type: FLUID SPECIMENOrdering Facility: [facility] Address: [address] [place] [address] Result Comment: Gyne cologic Cytology Report Case: [id number] Provider: Zayda Parker APRN.WAREHOUSE UNLOADER Collected: 05/07/2024 10:48 AMOrdering Location: OB/Gynecology Received: 05/07/2024 12:13 PMFirst Screen: Jayne Maddox, CT, ASCPSpecimen: Pap Test, ThinPrep, Cervix Performed By: #### L [id number] ####[facility] LABCLIA [id number] [place] [address] [place] CLINICAL HISTORY, CYTOLOGY, OPERATOR [place] LOCATING RADAR Routine Exam Normal [facility] Comment on above: Order Comment: Speci men Type: FLUID SPECIMENOrdering Facility: [facility] Address: [address] [place] [address] Result Comment: Preg nant (Indicate Weeks) Performed By: #### L [id number] ####[facility] LABCLIA [id number] [place] [address] [place] CYTOLOGY PAP OTHER INTERPRETATION Predominance of coccobacilli consistent with shift in vaginal hima. Normal [facility] Comment on above: Order Comment: Speci men Type: FLUID SPECIMENOrdering Facility: [facility] Address: [address] [place] [address] Performed By: #### L [id number] ####[facility] LABCLIA [id number] [place] [address] [place] FINAL PERFORMING LAB Normal [facility] Comment on above: Order Comment: Speci men Type: FLUID SPECIMENOrdering Facility: [facility] Address: [address] [place] [address] Result Comment: Tech nical component, business account manager screening performed at [facility], [address] [place], [place] [id number] CLIA# [id number] interpretation performed at [facility], [address] [place], [place] [address] CLIA# [id number] Director: Gavin Boss M.D. Performed By: #### L [id number] ####[facility] LABCLIA [id number] [place] [address] [place] INTERPRETATION, CYTOLOGY, OPERATOR [place] LOCATING RADAR Normal [facility] Comment on above: Order Comment: Speci men Type: FLUID SPECIMENOrdering Facility: [facility] Address: [address] [place] [address] Result Comment: Nega tive for intraepithelial lesion or malignancy. Performed By: #### L [id number] ####[facility] LABCLIA [id number] [place] [address] [place] LMP 03/13/2024 Normal [facility] Comment on above: Order Comment: Speci men Type: FLUID SPECIMENOrdering Facility: [facility] Address: [address] [place] [address] Performed By: #### L [id number] ####[facility] LABCLIA [id number] [place] [address] [place] PAP DISCLAIMER COMMENT The Pap Smear is a screening test for cervical cancer. False negative results occur with all screening tests, emphasizing the need for rescreening at recommended intervals, and clinical correlation. Normal [facility] Comment on above: Order Comment: Speci men Type: FLUID SPECIMENOrdering Facility: [facility] Address: [address] [place] [address] Performed By: #### L [id number] ####[facility] LABCLIA [id number] [place] [address] [place] PAP HEALTH EDUCATION TEACHER COMMENT Normal [facility] Comment on above: Order Comment: Speci men Type: FLUID SPECIMENOrdering Facility: [facility] Address: [address] [place] [address] Performed By: #### L [id number] ####[facility] LABCLIA [id number] [place] [id number] [place] [facility] [employer] ASSEMBLER ULTRASOUNDon 05-07-20 24 Indication Viability; confirm cardiac [...] Read By: Zayda Parker NP MATERNAL MEDICINE [facility] Radiology Study observation (narrative) [facility] Prot/Creat Uron 05-07-2024 Protein/Creatinine (U) [Mass ratio] 0.09 mg/mg Normal <0.15 [facility] Comment on above: Order Comment: Speci men Type: URINE SPECIMENOrdering Facility: [facility] Address: [address] [place] [address] Result Comment: Adul t Proteinuria Categories:<0.15 mg/mg is considered normal to mildly increased0.15 - 0.50 mg/mg is considered moderately increased>0.50 mg/mg is considered severely increasedKDIGO. (2013). KDIGO 2012 Clinical Practice Guideline for the Evaluation and Management of Chronic Kidney Disease. Official Journal of the International Society of Nephrology, 3(1), 1-150. Performed By: #### 2 890-2 ####[facility] LABIA [id number] [place] [address] [place] Protein/Creatinine (U) [Mass ratio]on 05-07-2024 Creatinine (U) [Mass/Vol] 58.6 mg/dL Normal 20.0-300.0 [facility] Comment on above: Order Comment: Speci men Type: URINE SPECIMENOrdering Facility: [facility] Address: [address] [place] [address] Performed By: #### 2 890-2 ####[facility] LABIA [id number] [place] [address] [place] Protein (U) [Mass/Vol] 5 mg/dL Normal 0-20 [facility] Comment on above: Order Comment: Speci men Type: URINE SPECIMENOrdering Facility: [facility] Address: [address] [place] [address] Performed By: #### 2 890-2 ####[facility] LABCLIA [id number] [place] [address] [place] RUBELLA IGG ANTIBODYon 05-07 RUBELLA IGG AB, QUAL Negative Abnormal Positive [facility] Comment on above: Order Comment: Speci men Type: BLOOD SPECIMENOrdering Facility: [facility] Address: [address] [place] [address] Result Comment: The result suggests no history of Rubella vaccination or exposure to Rubella virus, however, some individuals with past history of Rubella vaccination may test negative using this test as immunity to Rubella virus wanes over time after vaccination. Please correlate with vaccination history if applicable. Performed By: #### R UBIGG ####[facility] LABIA [id number] [place] [address] [place] Reagin and Treponema pallidu m IgG and IgM [Interp]on 05-07-2024 T. pallidum IgG+IgM IA Ql (S) Non-Reactive Normal Nonreactive [facility] Comment on above: Order Comment: Speci men Type: BLOOD SPECIMENOrdering Facility: [facility] Address: [address] [place] [address] Performed By: #### 5 195-3, 31673-3, 56553-9 ####[facility] LABCLIA [id number] [place] [address] [place] Reagin+T pallidum IgG+IgM Se rPl-Impon 05-07-2024 Reagin and Treponema pallidum IgG and IgM [Interp] Cannot exclude recent Treponemal infection if specimen collected within 7-10 days after appearance of suspect lesions or 2-3 weeks after an exposure. Clinical correlation is required. Normal [facility] Comment on above: Order Comment: Speci men Type: BLOOD SPECIMENOrdering Facility: [facility] Address: [address] [place] [address] Performed By: #### 5 195-3, 30395-9, 87326-5 ####[facility] LABCLIA [id number] [place] [address] [place] TSH SerPl-aCncon 05-07-2024 TSH Qn 0.807 m[IU]/L Normal 0.270-4.200 [facility] Comment on above: Order Comment: Speci gregg Type: BLOOD SPECIMENOrdering Facility: [facility] Address: [address] [place] [address] Result Comment: If t he patient is , TSH reference range varies by gestational period:First Trimester (weeks 9-12): 0.180-2.990 mIU/LSecond Trimester: 0.110-3.980 mIU/LThird Trimester: 0.480-4.710 mIU/Jerrell Gonzalez et al. A Practical Approach for the Verifications and Determination of Site- and Trimester-Specific Reference Intervals for Thyroid Function tests in . Thyroid, 2019:29:3:412-420. Lm Grijalva, et al. 2017 Guidelines of the [place] Thyroid Association for the Diagnosis and Management of Thyroid Disease during and the . Thyroid, 2017:27:3:315-389. Performed By: #### 3 016-3 ####[facility] LABCLIA [id number] [place] [address] [place] TYPE + SCREEN PRENATALon ABO A Normal [facility] Comment on above: Order Comment: Gume escobedo Type: BLOOD SPECIMENOrdering Facility: [facility] Address: [address] [place] [address] Performed By: #### T SPN ####[facility] BLOOD BANKCLIA [id number] [place] [address] [place] Rh Nom (Bld) Positive Normal [facility] Comment on above: Order Comment: Speci men Type: BLOOD SPECIMENOrdering Facility: [facility] Address: [address] [place] [address] Performed By: #### T SPN ####[facility] BLOOD BANKCLIA [id number] [address] [address] [place] TYPE AND SCREEN EXPIRATION 05/10/2024 23:59 Normal [facility] Comment on above: Order Comment: Speci men Type: BLOOD SPECIMENOrdering Facility: [facility] Address: [address] [place] [address] Performed By: #### T SPN ####[facility] BLOOD BANKCLIA [id number] [place] [id number] [place] CNOVon 05-03-2024 CNOV Normal [facility] CNPNon 05-03-2024 CNPN Normal [facility] HEMOGLOBIN A1C (POC)on 05-03 HbA1c (Bld) [Mass fraction] 10.5 % Abnormal 4.3 - 5.6 % [facility] Comment on above: Location:[facility], [address] [place] [address], [facility] Point of care (POC) Hemoglobin A1c (HGBA1C) [...] specific diabetes management situations: The POC device gasoline catalyst operator provides a normal range of 4.2% to 6.5% for the HGBA1C POC test. However, the [place] Diabetes Association guidelines indicate that patients with [...] Interpretation and review of laboratory results Abnormal [facility] CNPNon 04-23-2024 CNPN Normal [facility] CNPNon 04-19-2024 CNPN Normal [facility] Bacteria identifiedon 2023 Bacteria identified Cx Nom (U) Test: Urine Culture Specimen Source: Clean Catch/Voided Specimen Type: Urine Specimen Date: 04/18/20241916 Result Date: 04/21/2024 105 Result Status: Final result Abnormal: Yes Resulting Lab: [facility] [address] [place] [address] CULTURE >100,000 Escherichia coli (Abnormal) SUSCEPTIBILITY Escherichia coli METHOD MICROSCAN --- AMPICILLIN <=8.000 ug/ml Susceptible CEFAZOLIN <=2 ug/ml Susceptible CEFAZOLIN (UNCOMPLICATED UTIS ONLY) <=2 ug/ml Susceptible CIPROFLOXACIN <=0.250 ug/ml Susceptible GENTAMICIN <=2.000 ug/ml Susceptible NITROFURANTOIN <=32 ug/ml Susceptible PIPERACILLIN/TAZOBACTAM <=8.000 ug/ml Susceptible TRIMETHOPRIM/SULFAMETHO XAZOLE <=2/38 ug/ml Susceptible Abnormal [facility] Comment on above: Performed By: #### 6 30-4 #### AQUILES Gonzalez ([id number]) [facility] ([facility]) [address] [place] [address] C. trachomatis and N. gonorr hoeae DNA SUMIT+probe Nom (Unsp spec)on 04-18-2024 C. trachomatis rRNA SUMIT+probe Ql (Unsp spec) Not detected Not Detected [facility] Interpretation and review of laboratory results Normal [facility] N. gonorrhoeae DNA Probe+sig amp Ql (Unsp spec) Not detected Not Detected [facility] C. trachomatis rRNA SUMIT+probe Ql (Unsp spec) Not detected Normal Not Detected [facility] Comment on above: Performed By: #### 3 6903-3 #### JACQUELYN LOPEZ ([id number]) [facility] ([facility]) [address] [place] [address] N. gonorrhoeae DNA Probe+sig amp Ql (Unsp spec) Not detected Normal Not Detected [facility] Comment on above: Performed By: #### 3 6903-3 #### JACQUELYN LOPEZ ([id number]) [facility] ([facility]) [address] [place] [address] Choriogonadotropin.beta subu niton 04-18-2024 HCG.beta subunit Qn 2171 m[IU]/mL High <5 [facility] Comment on above: Order Comment: Total HCG measurement is performed using the [employer] Access Immunoassay which detects intact HCG and free beta HCG subunit. This test is not indicated for use as a tumor marker. HCG testing is performed using a different test methodology at [facility] than other [facility]. Direct result comparison should only [...] By: #### 2 1198-7 #### JACQUELYN LOPEZ ([id number]) [facility] ([facility]) [address] [place] [address] HCG ( test) IA.rapi d Ql (U)Ordered By: Lemuel Shetty on 04-18-2024 HCG ( test) Ql (U) Positive Abnormal NEGATIVE [facility] Interpretation and review of laboratory results Abnormal [facility] HCG ( test) IA.rapi d Ql (U)on 04-18-2024 HCG ( test) Ql (U) Positive Abnormal NEGATIVE [facility] Comment on above: Performed By: #### 8 0384-1 #### VALLADARES JOHN ([id number]) [facility] ([facility]) [address] [place] [address] HCG.beta subunit Qnon 2023 Interpretation and review of laboratory results Abnormal [facility] Total HCG measuremen t is performed using the [employer] Access Immunoassay which detects intact HCG and free beta HCG subunit. This test is not indicated for use as a tumor marker. HCG testing is performed using a different test methodology at [facility] than other [facility]. Direct result comparison should only be made within the same method. [facility] No Panel Informationon 04-18 Interpretation and review of laboratory results Abnormal [facility] Urinalysis complete W Reflex Culture panel (U)on 04-18-2024 Appearance (U) Turbid Abnormal Clear [facility] Bilirubin (U) [Mass/Vol] Negative NEGATIVE [facility] Color (U) Yellow Light-Yellow , Yellow, Dark-Yellow [facility] Glucose Auto test strip (U) [Mass/Vol] OVER (4+) Abnormal Normal mg/dL [facility] Ketones (U) [Mass/Vol] 100 (3+) Abnormal NEGATIVE mg/dL [facility] Leukocyte esterase Auto test strip Ql (U) 500 Zonia/ L Abnormal NEGATIVE [facility] Nitrite Auto test strip Ql (U) 2+ Abnormal NEGATIVE [facility] pH (U) 6 [pH] 5.0, 5.5, 6.0, 6.5, 7.0, 7.5, 8.0 [facility] Protein (U) [Mass/Vol] 30 (1+) Abnormal NEGATIVE, 10 (TRACE), 20 (TRACE) mg/dL [facility] RBC (U) [#/Vol] 0.03 (TRACE) Abnormal NEGATIVE [facility] Specific gravity (U) [Rel density] 1.048 Abnormal 1.005 - 1.035 [facility] Urobilinogen (U) [Mass/Vol] 2 (1+) Abnormal Normal mg/dL [facility] Comment on above: Due to a [...] is greater than the clinically reportable range. [facility] Appearance (U) Turbid Normal Clear [facility] Comment on above: Order Comment: OVER is reported when the result is greater than the clinically reportable range. Performed By: #### 5 8077-9 #### JACQUELYN LOPEZ ([id number]) [facility] ([facility]) [address] [place], [place] [id number] Bilirubin (U) [Mass/Vol] Negative Normal NEGATIVE [facility] Comment on above: Order Comment: OVER is reported when the result is greater than the clinically reportable range. Performed By: #### 5 8077-9 #### JACQUELYN LOPEZ ([id number]) [facility] ([facility]) [address] [place] [address] Color (U) Yellow Normal Light-Yellow , Yellow, Dark-Yellow [facility] Comment on above: Order Comment: OVER is reported when the result is greater than the clinically reportable range. Performed By: #### 5 8077-9 #### JACQUELYN LOPEZ ([id number]) [facility] ([facility]) [address] [place] [address] Glucose Auto test strip (U) [Mass/Vol] OVER (4+) Abnormal Normal [facility] Comment on above: Order Comment: OVER is reported when the result is greater than the clinically reportable range. Performed By: #### 5 8077-9 #### JACQUELYN LOPEZ ([id number]) [facility] ([facility]) [address] [place] [address] 19319 Ketones (U) [Mass/Vol] 100 (3+) Abnormal NEGATIVE [facility] Comment on above: Order Comment: OVER is reported when the result is greater than the clinically reportable range. Performed By: #### 5 8077-9 #### JACQUELYN LOPEZ ([id number]) [facility] ([facility]) [address] [place] [address] 60300 Leukocyte esterase Auto test strip Ql (U) 500 Zonia/???L Abnormal NEGATIVE [facility] Comment on above: Order Comment: OVER is reported when the result is greater than the clinically reportable range. Performed By: #### 5 8077-9 #### JACQUELYN LOPEZ ([id number]) [facility] ([facility]) [address] [place], [place] [address] Nitrite Auto test strip Ql (U) 2+ Abnormal NEGATIVE [facility] Comment on above: Order Comment: OVER is reported when the result is greater than the clinically reportable range. Performed By: #### 5 8077-9 #### JACQUELYN LOPEZ ([id number]) [facility] ([facility]) [address] [place] [address] pH (U) 6.0 [pH] Normal 5.0, 5.5, 6.0, 6.5, 7.0, 7.5, 8.0 [facility] Comment on above: Order Comment: OVER is reported when the result is greater than the clinically reportable range. Performed By: #### 5 8077-9 #### JACQUELYN LOPEZ ([id number]) [facility] ([facility]) [address] [place] [address] Protein (U) [Mass/Vol] 30 (1+) Abnormal NEGATIVE, 10 (TRACE), 20 (TRACE) [facility] Comment on above: Order Comment: OVER is reported when the result is greater than the clinically reportable range. Performed By: #### 5 8077-9 #### JACQUELYN LOPEZ ([id number]) [facility] ([facility]) [address] [place] [address] 70289 RBC (U) [#/Vol] 0.03 (TRACE) Abnormal NEGATIVE [facility] Comment on above: Order Comment: OVER is reported when the result is greater than the clinically reportable range. Performed By: #### 5 8077-9 #### JACQUELYN LOPEZ ([id number]) [facility] ([facility]) [address] [place], [place] [address] Specific gravity (U) [Rel density] 1.048 Normal 1.005-1.035 [facility] Comment on above: Order Comment: OVER is reported when the result is greater than the clinically reportable range. Performed By: #### 5 8077-9 #### JACQUELYN LOPEZ ([id number]) [facility] ([facility]) [address] [place] [address] Urobilinogen (U) [Mass/Vol] 2 (1+) Abnormal Normal [facility] Comment on above: Order Comment: OVER is [...] By: #### 5 8077-9 #### JACQUELYN LOPEZ ([id number]) [facility] ([facility]) [address] [place] [address] Urinalysis microscopic panel Auto Ql (U)on 04-18-2024 Bacteria Auto (Urine sed) [#/Area] 4+ Abnormal NONE SEEN /HPF [facility] Epithelial cells.squamous Auto (Urine sed) [#/Area] 10-25 (FEW) Reference range not established. /HPF [facility] Mucus Auto (Urine sed) [#/Area] FEW Reference range not established. /LPF [facility] RBC Auto (Urine sed) [#/Area] >20 Abnormal NONE, 1-2, 3-5 /HPF [facility] WBC Auto (Urine sed) [#/Area] >50 Abnormal 1-5, NONE /HPF [facility] Bacteria Auto (Urine sed) [#/Area] 4+ /HPF Abnormal NONE SEEN [facility] Comment on above: Performed By: #### 5 3315-8 #### JACQUELYN LOPEZ ([id number]) [facility] ([facility]) [address] [place], [place] [address] Epithelial cells.squamous Auto (Urine sed) [#/Area] 10-25 (FEW) Normal Reference range not established. [facility] Comment on above: Performed By: #### 5 3315-8 #### JACQUELYN LOPEZ ([id number]) [facility] ([facility]) [address] [place] [address] 42782 Mucus Auto (Urine sed) [#/Area] FEW Normal Reference range not established. [facility] Comment on above: Performed By: #### 5 3315-8 #### JACQUELYN LOPEZ ([id number]) [facility] ([facility]) [address] [place] [address] 38622 RBC Auto (Urine sed) [#/Area] >20 Abnormal NONE, 1-2, 3-5 [facility] Comment on above: Performed By: #### 5 3315-8 #### JACQUELYN LOPEZ ([id number]) [facility] ([facility]) [address] [place] [address] 06796 WBC Auto (Urine sed) [#/Area] >50 Abnormal 1-5, NONE [facility] Comment on above: Performed By: #### 5 3315-8 #### JACQUELYN LOPEZ ([id number]) [facility] ([facility]) [address] [place] [address] 07265 hCG, quantitative, on 04-18-2024 HCG.beta subunit Qn 2171 m[IU]/mL [facility] Comment on above: Low-level positive H CG [...] # 0.01 x10EE3/UL Normal 0.00 - 0.10 [facility] Comment on above: Performed By: #### 2 63893 ####[facility],[address] [place] [address] 13767 Basophils/100 WBC (Bld) 0.3 % Normal 0.0 - 2.0 [facility] Comment on above: Performed By: #### 2 76769 ####[facility],[address] [place] [address] CBC + DIFF Normal [facility] Comment on above: Result Comment: CBC- COMPLETE BLOOD COUNT Performed By: #### 2 51829 ####[facility],[address] [place] [address] EO # 0.11 x10EE3/UL Normal 0.00 - 0.50 [facility] Comment on above: Performed By: #### 2 51357 ####[facility],[address] [place] [address] Eosinophils/100 WBC (Bld) 2.4 % Normal 0.0 - 7.0 [facility] Comment on above: Performed By: #### 2 45220 ####[facility],[address] [place] [address] Erythrocyte distribution width (RBC) [Ratio] 12.7 % Normal 12.0 - 15.6 [facility] Comment on above: Performed By: #### 2 84317 ####[facility],[address] [place] [address] Hematocrit (Bld) [Volume fraction] 44.1 % Normal 34.0 - 46.0 [facility] Comment on above: Performed By: #### 2 98254 ####[facility],[address] [place], [place] [address] Hemoglobin (Bld) [Mass/Vol] 15.2 g/dL Normal 12.0 - 16.0 [facility] Comment on above: Performed By: #### 2 10570 ####[facility],[address] [place], [place] [address] Lymph # 1.74 x10EE3/UL Normal 0.80 - 2.80 [facility] Comment on above: Performed By: #### 2 89843 ####[facility],[address] [place] [address] Lymphocytes/100 WBC (Bld) 38.8 % Normal 20.0 - 45.0 [facility] Comment on above: Performed By: #### 2 06576 ####[facility],[address] [place] [address] MANUAL DIFF N/A Normal [facility] Comment on above: Performed By: #### 2 40081 ####[facility],[address] [place] [address] MCH (RBC) [Entitic mass] 29 pg Normal 27 - 33 [facility] Comment on above: Performed By: #### 2 45213 ####[facility],[address] [place] [address] MCHC 34 X10 3 Normal 32 - 36 [facility] Comment on above: Performed By: #### 2 85716 ####[facility],[address] [place] [address] MCV (RBC) [Entitic vol] 84 fL Normal 80 - 99 [facility] Comment on above: Performed By: #### 2 20641 ####[facility],[address] [place] [address] [place] # 0.48 x10EE3/UL Normal 0.20 - 1.00 [facility] Comment on above: Performed By: #### 2 56557 ####[facility],[address] [place] [address] MONOS % 10.7 % High 0.0 - 10.0 [facility] Comment on above: Performed By: #### 2 16017 ####[facility],[address] [place] [address] Morphology Jorge (Bld) [Interp] N/A Normal [facility] Comment on above: Performed By: #### 2 03092 ####[facility],[address] [place], [place] [address] Neut # 2.14 x10EE3/UL Normal 1.50 - 7.10 [facility] Comment on above: Performed By: #### 2 24116 ####[facility],[address] [place] [address] 74298 Neutrophils/100 WBC (Bld) 47.9 % Normal 46.0 - 76.0 [facility] Comment on above: Performed By: #### 2 54537 ####[facility],[address] [place] [address] 72144 PLATELET 283 x10EE3/UL Normal 150 - 450 [facility] Comment on above: Performed By: #### 2 78183 ####[facility],[address] [place] [address] 35392 Platelet mean volume (Bld) [Entitic vol] 7.1 fL Normal 6.6 - 10.5 [facility] Comment on above: Result Comment: AUTO MATED DIFFERENTIAL Performed By: #### 2 79131 ####[facility],[address] [place] [address] 75627 RBC 5.24 x 10EE6/UL Normal 4.10 - 5.30 [facility] Comment on above: Performed By: #### 2 68378 ####[facility],[address] [place] [address] 48783 WBC 4.5 x 10EE3/UL Normal 4.5 - 10.8 [facility] Comment on above: Performed By: #### 2 80619 ####[facility],[address] [place] [address] 13333 CMP with eGFRon 04-15-2024 AGE 29 years Normal [facility] Comment on above: Performed By: #### 2 16205 #### [facility],[address] [place] [address] 78764 Albumin [Mass/Vol] 3.7 g/dL Normal 3.4 - 5.0 [facility] Comment on above: Performed By: #### 2 41075 #### [facility],[address] [place] [address] 73154 Albumin/Globulin [Mass ratio] 0.9 {ratio} Normal 0.9 - 1.6 [facility] Comment on above: Performed By: #### 2 81571 #### [facility],[address] [place] [address] 66642 ALK PHOS 89 U/L Normal 46 - 116 [facility] Comment on above: Performed By: #### 2 97594 #### [facility],[address] [place] [address] 16889 ALT [Catalytic activity/Vol] 28 U/L Normal 16 - 63 [facility] Comment on above: Performed By: #### 2 11443 #### [facility],[address] [place] [address] 90427 Anion gap [Moles/Vol] 20 mmol/L Normal 10 - 20 [facility] Comment on above: Performed By: #### 2 30338 #### [facility],[address] [place] [address] 41138 AST [Catalytic activity/Vol] 12 U/L Low 13 - 39 [facility] Comment on above: Performed By: #### 2 70439 #### [facility],[address] [place] [address] 32401 B/C RATIO 19 ratio Normal 0 - 30 [facility] Comment on above: Performed By: #### 2 79917 #### [facility],[address] [place] [address] 19487 Bilirubin [Mass/Vol] 0.7 mg/dL Normal 0.2 - 1.0 [facility] Comment on above: Performed By: #### 2 54396 #### [facility],[address] [place] [address] 32276 Calcium [Mass/Vol] 8.9 mg/dL Normal 8.5 - 10.1 [facility] Comment on above: Performed By: #### 2 82142 #### [facility],[address] [place] [address] 45325 Chloride [Moles/Vol] 101 mmol/L Normal 98 - 107 [facility] Comment on above: Performed By: #### 2 06892 #### [facility],[address] [place] [address] 87206 CMP with eGFR Normal [facility] Comment on above: Result Comment: COMP REHENSIVE METABOLIC PANEL Performed By: #### 2 34080 #### [facility],[address] [place] [address] 81667 CO2 [Moles/Vol] 20.5 mmol/L Low 21.0 - 32.0 [facility] Comment on above: Performed By: #### 2 18619 #### [facility],[address] [place] [address] 65816 Creatinine [Mass/Vol] 0.64 mg/dL Normal 0.55 - 1.02 [facility] Comment on above: Performed By: #### 2 68614 #### [facility],[address] [place] [address] 50861 GFR/1.73 sq M.predicted among non-blacks MDRD (S/P/Bld) [Vol rate/Area] mL/min/{1.73_m2} Normal 60 - 999 [facility] Comment on above: Performed By: #### 2 52225 #### [facility],[address] [place] [address] 13543 Result Comment: ACCO RDING TO THE NATIONAL KIDNEY DISEASE EDUCATION PROGRAM(NKDE), A NORMAL eGFR IS A VALUE GREATER THAN OR EQUAL TO 60 ML/MIN/1.73 SQ METERS. CHRONIC KIDNEY DISEASE: <60mL/MIN/1.73 SQ METERS KIDNEY FAILURE: <15mL/MIN/1.73 SQ METERS THIS TEST SHOULD ONLY BE USED FOR PATIENTS 18 YEARS OF AGE AND OLDER. Globulin (S) [Mass/Vol] 4.1 g/dL High 1.5 - 3.8 [facility] Comment on above: Performed By: #### 2 85100 #### [facility],[address] [place] [address] 65573 Glucose [Mass/Vol] 235 mg/dL High 74 - 106 [facility] Comment on above: Performed By: #### 2 36296 #### [facility],[address] [place] [address] 56832 Potassium [Moles/Vol] 3.4 mmol/L Low 3.5 - 5.1 [facility] Comment on above: Performed By: #### 2 31846 #### [facility],[address] [place] [address] 56804 Protein [Mass/Vol] 7.8 g/dL Normal 6.4 - 8.2 [facility] Comment on above: Performed By: #### 2 62467 #### [facility],[address] [place] [address] 14667 Sodium [Moles/Vol] 138 mmol/L Normal 136 - 145 [facility] Comment on above: Performed By: #### 2 09534 #### [facility],[address] [place] [address] 45037 Urea nitrogen [Mass/Vol] 12 mg/dL Normal 7 - 18 [facility] Comment on above: Performed By: #### 2 11717 #### [facility],[address] [place] [address] 50114 ED MED ADMINISTRATION DETAIL on 04-15-2024 ED MED ADMINISTRATION DETAIL Claim Service Representative Medication Administration Record [address] [address] [id number] 04/14/2024 Patient: MELISSA KAUR Sex: Female : [...] Leona Roberts R.N. 1 of 1 Normal [facility] ED NURSES CLINICAL NOTEon ED NURSES CLINICAL NOTE Nurse Narrative Nurse Clinical Narrative [address] [address] [id number] 04/14/2024 Patient: MELISSA KAUR Sex: Female : [...] Roberts R.N. 02:56 04/15/24. Patient transported with radiology transcriptionist. (to [facility]). -- 03:06 04/15/24 FABRIZIO Roberts R.N.Correction -- 03:06 04/15/24 FABRIZIO Roberts R.N. 02:56 04/15/24. Patient transported by stretcher with radiology transcriptionist. (to [facility]). -- 03:07 04/15/24 FABRIZIO Roberts R.N. 03:01 04/15/24. Patient transported to radiology. -- 03:06 04/15 (more content not included)... Normal [facility] ED ORDER SHEET (CPOE ONLY)on 04-15-2024 ED ORDER SHEET (CPOE ONLY) Order Sheet Order Sheet [address] [place] [address] [id number] 04/14/2024 Patient: MELISSA KAUR Sex: Female : 1995 Age: 29y MEASUREMENTS: Wt: 77.1 kg ALLERGIES: Reglan, Seroquel, Zofran, Zoloft MEDICATION/IV/DRIP/FLUI D ORDERS Order Description Priority Entered Acknowledged Completed IV NS 0.9 %1000 mL at 999 00:22 04/15/2024 00:54 01:23 mL/hr (NOW x1) Milly Ji D.O. 04/15/2024 04/15/2024 Gely Patterson, R.NJuno LAB ORDERS Order Description Priority Entered Acknowledged Collected Completed CBC w Diff Stat Stat 00:22 04/15/2024 00:30 04/15/2024 01:19 04/15/2024 Viola Hansen R.N. Seth Lapp R.NJuno CMP Stat Stat 00:22 04/15/2024 00:30 04/15/2024 01:19 04/15/2024 Viola Hansen R.N. Seth Lapp R.NJuno Urinalysis Stat Stat 00:22 04/15/2024 00:30 04/15/2024 02:17 04/15/2024 Viola Hansen R.N. Anne Rutt, R.N. HCG, Qual Serum Stat Stat 00:23 04/15/2024 00:30 04/15/2024 01:19 04/15/2024 1 of 2 Order Sheet Viola Hansen R.N. Seth Lapp RJunoNJuno HCG, Quant Serum Stat Stat 02:17 04/15/2024 02:17 04/15/2024 02:21 04/15/2024 Viola Hansen R.N. Seth Lapp, R.NJuno quantitative hcg as 05:03 04/15/2024 05:24 04/15/2024 outpatient on 04/17/2024. Viola Hansen R.N. results to [facility] DIAGNOSTIC STUDY ORDERS Order Description [...] 04/15/2024 Viola Hansen R.N. Seth Lapp, R.NJuno Vital Signs every 30 00:22 04/15/2024 00:30 04/15/2024 01:19 04/15/2024 minutes Viola Hansen R.N. Seth Lapp, RJunoNJuno [Electronically signed by Milly Ji D.O. (04/15/2024 09:07 EST)] 2 of 2 Normal [facility] ED PHYSICIAN CLINICAL REPORT on 04-15-2024 ED PHYSICIAN CLINICAL REPORT Narrative Physician Clinical Narrative [facility] [address] [place] [address] [id number] 04/14/2024 Patient: MELISSA KAUR Sex: Female : [...] 1.50 - 7.10 Final EST 04/15/2024 01:39 [place] # 0. (more content not included)... Normal [facility] ED [facility] 04-15-2024 ED [place] [address] [facility] [place] [address] [id number] 04/14/2024 Patient: MELISSA KAUR Sex: Female : 1995 Age: 29y Item Facility Professional Category Description Code Code Quantity Fee Total Drugs Normal Saline 499563 1 $0.00 $0.00 1000cc (215455) Nurse/E/M EMERGENCY 431171 1 $0.00 $0.00 DEPARTMENT VISIT HIGH/URGENT SEVERITY (79159-43) Nurse/IV/IM/Infusions Hydration initial 729638 1 $0.00 $0.00 (29383) Grand Total $0.00 Providers Milly Ji D.O. Chief Complaint ABDOMINAL PAIN. 1 of 2 Superbill Principal Diagnosis First trimester ; positive test in emergency department. Ultrasound was performed but could not determine the location of the . ICD-10 Codes Z34.91: Encounter for supervision of normal , unspecified, first trimester Z3A.00: Weeks of gestation of not specified 2 of 2 Normal [facility] ED VISIT SUMMARYon ED VISIT SUMMARY Visit Overview Visit Overview [facility] [address] [facility] [place] [address] [id number] 04/14/2024 Patient: MELISSA KAUR Sex: Female : [...] hcg as outpatient on 04/17/2024. results to [facility] Urinalysis US OB<14WK Single Gestation CLINICAL IMPRESSION FIRST TRIMESTER ; POSITIVE TEST IN EMERGENCY DEPARTMENT. ULTRASOUND WAS PERFORMED BUT COULD NOT DETERMINE THE LOCATION OF THE 3 of 3 Normal [facility] ED VITALS FLOW SHEETon 04-15 ED VITALS FLOW SHEET Vitals Vital Sign Flow Sheet [address] [address] [id number] 04/14/2024 Patient: MELISSA KAUR Sex: Female : [...] 98.5 F 6 2 of 2 Normal [facility] PREG SERUM QUANTon 4 HCG QUANTITATIVE 433 mIU/mL High 0 - 6 [facility] Comment on above: Result Comment: Refe virgen Range: Male: <5 Female: Non: <5 1 [...] 3RD TRIMESTER 1000-50,000 Performed By: #### 2 14538 ####[facility],[address] [place] [address] SERUM QUALon 04-15 EXTERNAL QC DONE? YES Normal [facility] Comment on above: Performed By: #### 2 59850 #### [facility],[address] [place] [address] INTERNAL QC PASS Normal [facility] Comment on above: Performed By: #### 2 25270 #### [facility],[address] [place] [address] SER Positive Normal NEGATIVE [facility] Comment on above: Performed By: #### 2 51815 #### [facility],[address] [place], [place] [id number] URINALYSISon 04-15-2024 Amorphous NONE Normal [facility] Comment on above: Performed By: #### 2 10125 #### [facility],[address] [place] [address] 81085 Bacteria TRACE Normal [facility] Comment on above: Performed By: #### 2 64511 #### [facility],[address] [place] [address] 93871 Bilirubin Ql (U) Negative Normal NORMAL: NEGATIVE [facility] Comment on above: Performed By: #### 2 11685 #### [facility],[address] [place] [address] 76594 Casts NONE Normal [facility] Comment on above: Performed By: #### 2 20566 #### [facility],[address] [place] [address] 79017 Clarity (U) clear Normal NORMAL: CLEAR [facility] Comment on above: Performed By: #### 2 12363 #### [facility],[address] [place] [address] 44540 Color (U) yellow Normal NORMAL: YELLOW [facility] Comment on above: Performed By: #### 2 36469 #### [facility],[address] [place] [address] 11713 Crystals LM Nom (Urine sed) NONE Normal [facility] Comment on above: Performed By: #### 2 21613 #### [facility],[address] [place] [address] 36989 Epi Cells MODERATE Normal [facility] Comment on above: Performed By: #### 2 21389 #### [facility],[address] [place] [address] 27510 Glucose Ql (U) 1000 Abnormal NORMAL: NORMAL [facility] Comment on above: Performed By: #### 2 81060 #### [facility],[address] [place] [address] 47770 Hemoglobin Ql (U) Negative Normal NORMAL: NEGATIVE [facility] Comment on above: Performed By: #### 2 95402 #### [facility],[address] [place] [address] 93153 Ketone 150 Abnormal NORMAL: NEGATIVE [facility] Comment on above: Performed By: #### 2 47288 #### [facility],[address] [place] [address] 14260 Leukocytes 25 Abnormal NORMAL: NEGATIVE [facility] Comment on above: Performed By: #### 2 00030 #### [facility],[address] [place] [address] 56711 Mucous NONE Normal [facility] Comment on above: Performed By: #### 2 11662 #### [facility],[address] [place] [address] 15304 Nitrite Ql (U) Negative Normal NORMAL: NEGATIVE [facility] Comment on above: Performed By: #### 2 92638 #### [facility],[address] [place] [address] pH (U) 5 [pH] Normal NORMAL: 5.0-8.0 [facility] Comment on above: Performed By: #### 2 61252 #### [facility],[address] [place] [address] 90063 Protein Ql (U) 15 Abnormal NORMAL: NEGATIVE [facility] Comment on above: Performed By: #### 2 28964 #### [facility],[address] [place] [address] 03718 Rbc 0-5 Normal 0-3/hpf [facility] Comment on above: Performed By: #### 2 86892 #### [facility],[address] [place] [address] 10182 Sp [place] 1.025 Normal NORMAL: 1.010-1.030 [facility] Comment on above: Performed By: #### 2 34125 #### [facility],[address] [place] [address] 17139 Specimen Type R Normal [facility] Comment on above: Performed By: #### 2 31141 #### [facility],[address] [place] [address] 89550 Urinalysis dipstick W Reflex Microscopic panel (U) SEE BELOW Normal [facility] Comment on above: Result Comment: MICR OSCOPIC Performed By: #### 2 71781 #### [facility],[address] [place] [address] 80204 Urobilinog NORM Normal NORMAL: NORMAL [facility] Comment on above: Performed By: #### 2 24780 #### [facility],[address] [place] [address] 41163 Wbc 1-5 Normal 0-5/hpf [facility] Comment on above: Performed By: #### 2 22716 #### [facility],[address] [place] [address] 70090 Yeast NONE Normal [facility] Comment on above: Performed By: #### 2 84932 #### [facility],[address] [place] [address] OB ENDO VAGINALon 024 OB ENDO VAGINAL [place] [address] Patient: MELISSA KAUR Phone#: : 1995 Age: 29 Gender: F Pt. Type: ER Account: [id number] Location: [facility] Ordering: MILLY JI Exam Date: 04/15/2024/2:54 Family Phys: JAMARI BYRNE Charge Code: 871957 Physician: [place] Order #: [id number] Dose#: PROCEDURE: OB INITIAL <14 WEEKS ULTRASOUND, [...] Nobles MD on 04/15/2024 at 9:02 Normal [facility] US OB INITIAL< 14 WEEKS; 1st GESTATIONon 04-15-2024 US OB INITIAL< 14 WEEKS; 1st GESTATION [place] [address] Patient: MELISSA KAUR Phone#: : 1995 Age: 29 Gender: F Pt. Type: ER Account: [id number] Location: 052 Ordering: MILLY JI Exam Date: 04/15/2024/2:54 Family Phys: JAMARI BYRNE Charge Code: 794945 Physician: [place] Order #: [id number] Dose#: PROCEDURE: OB INITIAL <14 WEEKS ULTRASOUND, [...] Nobles MD on 04/15/2024 at 9:02 Normal [facility] CNPNon 04-14-2024 CNPN Normal [facility] Urgent Care Visit Reporton 0 02-26-2024 Urgent Care Visit Report [facility] [address], [address] [place] [address] OFFICE VISIT Date of Service: 02/26/24 MR#: [id number] Acct: [id number] Name: MELISSA KAUR Rep #: [id number] : 1995 Provider: BUDDY Henderson Age/Sex: 29/F Location: [facility] Status: Signed Intake Vital Signs 02/26/24 13:36 Height 5 ft 2 in Weight: 171 lb 6 oz BMI 31.3 BP 128/68 H Blood Pressure Location Lt brachial Position Sitting Respiration 17 Pulse 84 Pulse Source NIBP Temp 98.2 F Temp Source Temporal Pulse Oximetry (%) 98 Oxygen Delivery Method room air Intake Visit Reasons: YEAST INFECTION Chief Complaint: vaginal itching, discharge Therapy Aide Required: No Is patient in pain?: No [...] denies abd pain, fevers, odor, new partners. [facility] Medical History Seizures Asthma Osteoarthritis Diabetes Surgical [...] Samayoa Signature: Date (if applicable) CC: Normal [facility] Basic metabolic 2000 panelon 12-16-2023 Anion gap [Moles/Vol] 14 mmol/L Normal 10-20 [facility] Comment on above: Performed By: #### 2 4321-2 #### JACQUELYN LOPEZ ([id number]) [facility]) [facility] [place] [address] Calcium [Mass/Vol] 9.3 mg/dL Normal 8.6-10.3 [facility] Comment on above: Performed By: #### 2 4321-2 #### JACQUELYN LOPEZ ([id number]) [facility] ([facility]) [facility] [place] [address] Chloride [Moles/Vol] 101 mmol/L Normal 98-107 [facility] Comment on above: Performed By: #### 2 4321-2 #### JACQUELYN LOPEZ ([id number]) [facility] ([facility]) [facility] [place] [address] CO2 [Moles/Vol] 26 mmol/L Normal 21-32 [facility] Comment on above: Performed By: #### 2 4321-2 #### JACQUELYN LOPEZ ([id number]) [facility] ([facility]) [address] [place] [address] 24192 Creatinine [Mass/Vol] 0.54 mg/dL Normal 0.50-1.05 [facility] Comment on above: Performed By: #### 2 4321-2 #### JACQUELYN LOPEZ ([id number]) [facility] ([facility]) [address] [place] [address] 98654 GFR/1.73 sq M.predicted MDRD (S/P/Bld) [Vol rate/Area] mL/min/{1.73_m2} Normal >60 [facility] Comment on above: Result Comment: Calc ulations of estimated GFR are performed using the 2020 CKD-EPI Study Refit equation without the race variable for the IDMS-Traceable creatinine methods. https://jasn.asnjournals.org/content/early//ASN.462569 6706 Performed By: #### 2 4321-2 #### JACQUELYN LOPEZ ([id number]) [facility] ([facility]) [address] [place] [address] 55447 Glucose [Mass/Vol] 207 mg/dL High 74-99 [facility] Comment on above: Performed By: #### 2 4321-2 #### JACQUELYN LOPEZ ([id number]) [facility] ([facility]) [address] [place] [address] 19397 Potassium [Moles/Vol] 3.7 mmol/L Normal 3.5-5.3 [facility] Comment on above: Performed By: #### 2 4321-2 #### JACQUELYN LOPEZ ([id number]) [facility] ([facility]) [address] [place] [address] 33742 Sodium [Moles/Vol] 137 mmol/L Normal 136-145 [facility] Comment on above: Performed By: #### 2 4321-2 #### JACQUELYN LOPEZ ([id number]) [facility] ([facility]) [address] [place] [address] 89978 Urea nitrogen [Mass/Vol] 7 mg/dL Normal 6-23 [facility] Comment on above: Performed By: #### 2 4321-2 #### JACQUELYN LOPEZ ([id number]) [facility] ([facility]) [address] [place] [address] 17777 HbA1c (Bld) [Mass fraction]o n 12-16-2023 Average glucose Estimated from glycated hemoglobin (Bld) [Mass/Vol] 246 mg/dL Normal Not Established [facility] Comment on above: Order Comment: Diagn osis of Diabetes-Adults Non-Diabetic: < or = 5.6% Increased risk for developing diabetes: 5.7-6.4% Diagnostic of diabetes: > or = 6.5% Performed By: #### 4 548-4 #### JACQUELYN LOPEZ ([id number]) [facility] ([facility]) [address] [place] [address] 23193 Hemoglobin A1c/Hemoglobin.to bg 12-16-2023 HbA1c (Bld) [Mass fraction] 10.2 % High see below [facility] Comment on above: Order Comment: Diagn osis of Diabetes-Adults Non-Diabetic: < or = 5.6% Increased risk for developing diabetes: 5.7-6.4% Diagnostic of diabetes: > or = 6.5% Performed By: #### 4 548-4 #### JACQUELYN LOPEZ ([id number]) [facility] ([facility]) [address] [place] [address] 28684 Basic metabolic 2000 panelon 09-15-2023 Anion gap [Moles/Vol] 13 mmol/L Normal 10-20 [facility] Comment on above: Performed By: #### 2 4321-2 #### JACQUELYN LOPEZ ([id number]) [facility]) [address] [place] [address] 89708 Calcium [Mass/Vol] 9.9 mg/dL Normal 8.6-10.3 [facility] Comment on above: Performed By: #### 2 4321-2 #### JACQUELYN LOPEZ ([id number]) [facility] ([facility]) [address] [place] [address] Chloride [Moles/Vol] 99 mmol/L Normal 98-107 [facility] Comment on above: Performed By: #### 2 4321-2 #### JACQUELYN LOPEZ ([id number]) [facility]) [address] [place] [address] CO2 [Moles/Vol] 28 mmol/L Normal 21-32 [facility] Comment on above: Performed By: #### 2 4321-2 #### JACQUELYN LOPEZ ([id number]) [facility] ([facility]) [address] [place] [address] 12309 Creatinine [Mass/Vol] 0.57 mg/dL Normal 0.50-1.05 [facility] Comment on above: Performed By: #### 2 4321-2 #### JACQUELYN LOPEZ ([id number]) [facility] ([facility]) [address] [place] [address] 93277 GFR/1.73 sq M.predicted MDRD (S/P/Bld) [Vol rate/Area] mL/min/{1.73_m2} Normal >60 [facility] Comment on above: Result Comment: Calc ulations of estimated GFR are performed using the 2020 CKD-EPI Study Refit equation without the race variable for the IDMS-Traceable creatinine methods. https://jasn.asnjournals.org/content//ASN.480916 4614 Performed By: #### 2 4321-2 #### JACQUELYN LOPEZ ([id number]) [facility] ([facility]) [address] [place] [address] 96823 Glucose [Mass/Vol] 208 mg/dL High 74-99 [facility] Comment on above: Performed By: #### 2 4321-2 #### JACQUELYN LOPEZ ([id number]) [facility] ([facility]) [facility] [place] [address] Potassium [Moles/Vol] 4.0 mmol/L Normal 3.5-5.3 [facility] Comment on above: Performed By: #### 2 4321-2 #### JACQUELYN LOPEZ ([id number]) [facility] ([facility]) [facility] [place] [address] Sodium [Moles/Vol] 136 mmol/L Normal 136-145 [facility] Comment on above: Performed By: #### 2 4321-2 #### JACQUELYN LOPEZ ([id number]) [facility] ([facility]) [address] [place] [address] 11477 Urea nitrogen [Mass/Vol] 10 mg/dL Normal 6-23 [facility] Comment on above: Performed By: #### 2 4321-2 #### JACQUELYN LOPEZ ([id number]) [facility] ([facility]) [address] [place] [address] 56975 HbA1c (Bld) [Mass fraction]o n 09-15-2023 Average glucose Estimated from glycated hemoglobin (Bld) [Mass/Vol] 226 mg/dL Normal Not Established [facility] Comment on above: Order Comment: Diagn osis of Diabetes-Adults Non-Diabetic: < or = 5.6% Increased risk for developing diabetes: 5.7-6.4% Diagnostic of diabetes: > or = 6.5% Monitoring of Diabetes Age (y)....................... Therapeutic Goal (%) Adults: >18.........................<7.0 Pediatrics: 13-18...................<7.5 Pediatrics: 7-12....................<8.0 Pediatrics: 0-6..................... 7.5-8.5 [employer]. Diabetes Care 33(S1), Jun 2009 Performed By: #### 4 548-4 #### JACQUELYN LOPEZ ([id number]) [facility] ([facility]) [address] [place] [address] 47232 Hemoglobin A1c/Hemoglobin.to bg 09-15-2023 HbA1c (Bld) [Mass fraction] 9.5 % High see below [facility] Comment on above: Order Comment: Diagn osis of Diabetes-Adults Non-Diabetic: < or = 5.6% Increased risk for developing diabetes: 5.7-6.4% Diagnostic of diabetes: > or = 6.5% Monitoring of Diabetes Age (y)....................... Therapeutic Goal (%) Adults: >18.........................<7.0 Pediatrics: 13-18...................<7.5 Pediatrics: 7-12....................<8.0 Pediatrics: 0-6..................... 7.5-8.5 [employer]. Diabetes Care 33(S1), Jun 2009 Performed By: #### 4 548-4 #### VALLADARES JOHN ([id number]) [facility] ([facility]) [address] [place] [address] 74751 BASIC METABOLIC PANELon - Anion gap [Moles/Vol] 13 mmol/L Normal 10 - 20 [facility] Comment on above: Performed By: #### B MP #### [address] [address] Calcium [Mass/Vol] 9.2 mg/dL Normal 8.6 - 10.3 [facility] Comment on above: Performed By: #### B MP #### [address] [address] Chloride [Moles/Vol] 101 mmol/L Normal 98 - 107 [facility] Comment on above: Performed By: #### B MP #### [address] [address] Creatinine [Mass/Vol] 0.55 mg/dL Normal 0.50 - 1.05 [facility] Comment on above: Performed By: #### B MP #### [address] [address] eGFR FEMALE >90 Normal >90 [facility] Comment on above: Result Comment: CALC ULATIONS OF ESTIMATED GFR ARE PERFORMED USING THE 2020 CKD-EPI STUDY REFIT EQUATION WITHOUT THE RACE VARIABLE FOR THE IDMS-TRACEABLE CREATININE METHODS. https://jasn.asnjournals.org/content//ASN.981111 6746 Performed By: #### B MP #### [place] [address] Glucose [Mass/Vol] 296 mg/dL High 74 - 99 [facility] Comment on above: Performed By: #### B MP #### [address] [address] HCO3 (Bld) [Moles/Vol] 26 mmol/L Normal 21 - 32 [facility] Comment on above: Performed By: #### B MP #### [place] 2900305 Potassium [Moles/Vol] 3.8 mmol/L Normal 3.5 - 5.3 [facility] Comment on above: Performed By: #### B MP #### [address] [address] Sodium [Moles/Vol] 136 mmol/L Normal 136 - 145 [facility] Comment on above: Performed By: #### B MP #### [address] [address] Urea nitrogen [Mass/Vol] 10 mg/dL Normal 6 - 23 [facility] Comment on above: Performed By: #### B MP #### [address] [address] Lab Specimen Source Normal [facility] Comment on above: Performed By: #### B MP #### [address] [address] Performed By: #### H BA1E #### [address] [address] HEMOGLOBIN A1Con 12-03-2022 Glucose [Mass/Vol] 209 mg/dL Normal [facility] Comment on above: Performed By: #### H BA1E #### [address] [address] HbA1c (Bld) [Mass fraction] 8.9 % Abnormal [facility] Comment on above: Result Comment: Diag nosis of Diabetes-Adults Non-Diabetic: < or = 5.6% Increased risk for developing diabetes: 5.7-6.4% Diagnostic of diabetes: > or = 6.5% . Monitoring of Diabetes Age (y) Therapeutic Goal (%) Adults: >18 <7.0 Pediatrics: 13-18 <7.5 7-12 <8.0 0- 6 7.5-8.5 [employer]. Diabetes Care 33(S1), Jun 2009. Performed By: #### H BA1E #### [address] [address] HCG ( test) Ql (U)o n 08-17-2022 Internal Control Pass [facility] Interpretation and review of laboratory results Normal [facility] POC , Urineon 08-17 HCG ( test) Ql (U) Negative Negative [facility] BASIC METABOLIC PANELon 12- eGFR FEMALE >90 Normal >90 [facility] Comment on above: Result Comment: CALC ULATIONS OF ESTIMATED GFR ARE PERFORMED USING THE 2020 CKD-EPI STUDY REFIT EQUATION WITHOUT THE RACE VARIABLE FOR THE IDMS-TRACEABLE CREATININE METHODS. https://jasn.asnjournals.org/content//ASN.144684 7003 Performed By: #### B MP #### [address] [address] HCO3 (Bld) [Moles/Vol] 24 mmol/L Normal 21 - 32 [facility] Comment on above: Performed By: #### B MP #### [address] [address] Anion gap [Moles/Vol] 14 mmol/L Normal 10 - 20 - [facility] Work Phone: Comment on above: Performed By: #### B MP #### [address] [address] Calcium [Mass/Vol] 9.8 mg/dL Normal 8.6 - 10.3 [facility] Work Phone: Comment on above: Performed By: #### B MP #### [address] [address] Chloride [Moles/Vol] 101 mmol/L Normal 98 - 107 [facility] Work Phone: Comment on above: Performed By: #### B MP #### [address] [address] Creatinine [Mass/Vol] 0.58 mg/dL Normal 0.50 - 1.05 [facility] Work Phone: Comment on above: Reference Range: 0.5 0 - 1.05 Performed By: #### B MP #### [address] [address] Glucose [Mass/Vol] 263 mg/dL High 74 - 99 [facility] Work Phone: Comment on above: Performed By: #### B MP #### [address] [address] Potassium [Moles/Vol] 3.5 mmol/L Normal 3.5 - 5.3 [facility] Work Phone: Comment on above: Performed By: #### B MP #### [address] [address] Sodium [Moles/Vol] 135 mmol/L Low 136 - 145 [facility] Work Phone: Comment on above: Performed By: #### B MP #### [address] [address] Urea nitrogen [Mass/Vol] 12 mg/dL Normal 6 - 23 [facility] Work Phone: Comment on above: Performed By: #### B MP #### [address] [address] HEMOGLOBIN A1Con 05-24-2022 Glucose [Mass/Vol] 246 mg/dL Normal [facility] Comment on above: Performed By: #### H BA1E #### [address] [address] HbA1c (Bld) [Mass fraction] 10.2 % Abnormal [facility] Comment on above: Result Comment: Diag nosis of Diabetes-Adults Non-Diabetic: < or = 5.6% Increased risk for developing diabetes: 5.7-6.4% Diagnostic of diabetes: > or = 6.5% . Monitoring of Diabetes Age (y) Therapeutic Goal (%) Adults: >18 <7.0 Pediatrics: 13-18 <7.5 7-12 <8.0 0- 6 7.5-8.5 [employer]. Diabetes Care 33(S1), Jun 2009. Performed By: #### H BA1E #### [address] [address] Hemoglobin A1Con 05-24-2022 Glucose [Mass/Vol] 246 mg/dL [facility] Work Phone: HbA1c (Bld) [Mass fraction] 10.2 % Abnormal [facility] Work Phone: Comment on above: Diagnosis of Diabete s-Adults Non-Diabetic: < or = 5.6% Increased risk for developing diabetes: 5.7-6.4% Diagnostic of diabetes: > or = 6.5%. Monitoring of Diabetes Age (y) Therapeutic Goal (%) Adults: >18 <7.0 Pediatrics: 13-18 <7.5 7-12 <8.0 0- 6 7.5-8.5 [employer]. Diabetes Care 33(S1), Jun 2009. Laboratory - Chemistry and C hemistry - challengeon 05-24-2022 CO2 [Moles/Vol] 24 mmol/L 21 - 32 [facility] Work Phone: No Panel Informationon 05-24 >90 >90 [facility] Work Phone: Comment on above: CALCULATIONS OF ASCENCION MATED GFR ARE PERFORMED USING THE 2020 CKD-EPI STUDY REFIT EQUATION WITHOUT THE RACE VARIABLE FOR THE IDMS-TRACEABLE CREATININE METHODS.https://jasn.asnjournals.org/content/early// N.8281980074 Office Visit (Family Medicin e)on 05-24-2022 Follow-up visit Diagnoses/Problems Hyperglycemia due to diabetes mellitus (250.02) (E11.65) Anxiety and depression (300.00,311) (F41.9,F32.A) Bipolar depression (296.50) (F31.9) Orders Hyperglycemia due to diabetes mellitus Start: Pioglitazone HCl - 15 MG Oral Tablet; Take 1 tablet daily Follow-up visit in 3 months Outpatient Follow-up Status: Hold For - Scheduling Requested for: [id number] Hemoglobin A1C; Status:Active; Requested for:22Aug2022; PMH: History [...] 25 MG TABS Vitals Vital Signs Recorded: 72Son6362 10:15AM Heart Rate94 Bpenguwq887 Jyeniqzgl92 Hxfgrh866.48 cm Ynyeca68.64 kg BMI Rswqojtlcc59.92 kg/m2 BSA Calculated1.83 Tobacco Usea) Yes PHQ-2 [...] AND affect, Normal judgment. Results/Data Basic Metabolic Fouji50Pyi8504 08:34AMRaberJamari Test NameResultFlagReference Glucose, Azdye496 mg/dLH74 - 99 Sodium, Fkxfz319 mmol/LL136 - 145 POTASSIUM3.5 mmol/L3.5 - 5.3 Chloride, Qvnii453 mmol/L98 - 107 Bicarbonate, Serum24 mmol/L21 - 32 Anion Gap, Serum14 mmol/L10 - 20 Blood Urea Nitrogen, Serum12 mg/dL6 - 23 CREATININE0.58 mg/dLSee Below Reference (more content not included)... Normal [place] Tobacco Screening.on 022 Adult depression screening assessment [facility] Phone: Tobacco use status CP a) Yes [facility] Work Phone: Office Visit (Family Medicin e)on 02-22-2022 Follow-up visit Diagnoses/Problems Hyperglycemia due to diabetes mellitus (250.02) (E11.65) Anxiety and depression (300.00,311) (F41.9,F32.A) Orders Anxiety and depression Follow-up visit in 3 months Outpatient Follow-up Status: Hold For - Scheduling Requested for: 36Msx1168 Basic Metabolic Panel; Status:Active; Requested for:87Bem4909; Anxiety and depression, Hyperglycemia due to diabetes mellitus Hemoglobin A1C; Status:Active; Requested for:33Lui1256; Health Maintenance Renew: Albuterol Sulfate HFA 108 [...] CapsuleSocHx: Current smoker Benadryl 25 MG TABS [place] Carbonate 300 MG Oral Capsule Vitals Vital Signs Recorded: 56Mjb1428 08:55AM Heart Rate73 Dglhgavopcj19 Uftiaynf277 Ijztvykjb42 Height5 ft 2 in Pzuvod414 lb BMI Etmtwoclav39.56 kg/m2 BSA Calculated1.82 Tobacco Usea) Yes Patient encouraged to stop using tobacco productsYes Falls Screening (Age 18+)a) No falls within the last year O2 Ttslhzdwtr81 Physical Exam General: Alert and oriented, No [...] and Scales' Signatures Electronically signed by : Jaamri Byrne MD; Feb 22 2022 9:20AM EST (Author) Normal [place] Office Visit (Family Junior grijalva)on 01-04-2022 Follow-up visit Diagnoses/Problems Anxiety and depression [...] 09/27/2019 1:53:36 PM Reglan Unknown; Recorded By: Jaent Ross; 09/27/2019 1:53:36 PM Zofran Unknown; Recorded [...] Vital Signs Recorded: 04Jan2022 01:47PM Heart Rate80 Yazllint497 Esvfdfepr32 Height5 ft 2 in Eixbop376 lb 15.70 oz BMI Esmkzvcovf71.91 kg/m2 BSA Calculated1.78 Tobacco Usea) Yes Patient [...] Jan 04 2022 2:03PM EST (Author) Normal [facility] Tobacco Screening.on 022 Fall risk assessment a) No falls within the last year [facility] Work Phone: Tobacco use status [facility] a) Yes [facility] Work Phone: Tobacco Screening. 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 Vitals Vital Signs Recorded: 81Lbn6032 08:36AM Kqzmlght042 Iyoyuxusx86 Height5 ft 2 in Etcltk368 lb 0.08 oz BMI Qovuxfbngw89.36 kg/m2 BSA Calculated1.77 FYR99Uix8583 Physical Exam Constitutional: Healthy-appearing in no physical distress. Head and Face: No obvious lesions. Neck: Supple with good range of motion. External genitalia revealed no lesions the vagina was well estrogenized the cervix was nonfriabl there was a thick white lul-blqk-pvmtkpuc discharge Musculoskeletal: Good mobility of her extremities. Psychiatric: Appropriately oriented. Wet mount was negative for trichomoniasis Signatures Electronically signed by : Jeanie Sutton DO; Dec 25 2021 8:50AM EST (Author) Normal [employer] [facility] + CHLAMYDIA BY AMPLIFIED DETECTIONon 12-18-2021 CHLAMYDIA TRACH.,AMPLIFIED Negative Normal Negative [facility] Comment on above: Result Comment: The APTIMA Combo 2 assay is FDA-approved for Chlamydia trachomatis and Neisseria gonorrhoeae testing on female endocervical and vaginal swabs, ThinPrep liquid pap samples, male urine samples and urethral swabs. Performance characteristics for Chlamydia trachomatis and Neisseria gonorrhoeae testing on specific jaa-GKD-rvujacom sample types (female urine samples) have been validated by [facility]. This laboratory is certified by CLIA to perform high complexity testing. Samples from all other sites are not validated for this method. Performed By: #### G [facility] #### [facility] [address] [place] [address] N.GONORRHEA,AMPLIFIED Negative Normal Negative [facility] Comment on above: Result Comment: The APTIMA Combo 2 assay is FDA-approved for Chlamydia trachomatis and Neisseria gonorrhoeae testing on female endocervical and vaginal swabs, ThinPrep liquid pap samples, male urine samples and urethral swabs. Performance characteristics for Chlamydia trachomatis and Neisseria gonorrhoeae testing on specific aof-IPM-sgynapqb sample types (female urine samples) have been validated by [facility]. This laboratory is certified by CLIA to perform high complexity testing. Samples from all other sites are not validated for this method. Performed By: #### G [facility] #### [facility] [address] [place] [address] GC + CHLAMYDIA BY AMPLIFIED DETECTIONon 12-17-2021 Lab Specimen Source Urine Normal [facility] Comment on above: Performed By: #### G [facility] #### [facility] [address] [place] [address] GC + Chlamydia By Amplified Detectionon 12-17-2021 C. trachomatis rRNA SUMIT+probe Ql (Unsp spec) Negative Negative [facility] and [address] Work Phone: Comment on above: The APTIMA Combo 2 a ssay is FDA-approved for Chlamydia trachomatis and Neisseria gonorrhoeae testing on female endocervical and vaginal swabs, ThinPrep liquid pap samples, male urine samples and urethral swabs. Performance characteristics for Chlamydia trachomatis and Neisseria gonorrhoeae testing on specific icl-JTR-hitkjbhy sample types (female urine samples) have been validated by [facility]. This laboratory is certified by CLIA to perform high complexity testing. Samples from all other sites are not validated for this method. N. gonorrhoeae rRNA SUMIT+probe Ql (Unsp spec) Negative Negative [facility] and [address] Work Phone: Comment on above: SOURCE: Urine The AP KATAI Combo 2 assay is FDA-approved for Chlamydia trachomatis and Neisseria gonorrhoeae testing on female endocervical and vaginal swabs, ThinPrep liquid pap samples, male urine samples and urethral swabs. Performance characteristics for Chlamydia trachomatis and Neisseria gonorrhoeae testing on specific pma-TAE-gnriblqk sample types (female urine samples) have been validated by [facility]. This laboratory is certified by CLIA to perform high complexity testing. Samples from all other sites are not validated for this method. 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 Vitals Vital Signs Recorded: [id number] 09:02AM Gigosyos670 Clqsqbzjx76 Height5 ft 2 in Fqbsbr674 lb 7.14 oz BMI Fsyfmrnsqy56.44 kg/m2 BSA Calculated1.77 [id number] Physical Exam Constitutional: Healthy-appearing in no physical [...] Bacteria identified Aer cx Nom (Genital specimen) [facility] [address] Work Phone: GC + Chlamydia By Amplified Detectionon 11-26-2021 C. trachomatis rRNA SUMIT+probe Ql (Unsp spec) Positive Abnormal Negative [facility] and [address] Work Phone: Comment on above: The APTIMA Combo 2 a ssay is FDA-approved for Chlamydia trachomatis and Neisseria gonorrhoeae testing on female endocervical and vaginal swabs, ThinPrep liquid pap samples, male urine samples and urethral swabs. Performance characteristics for Chlamydia trachomatis and Neisseria gonorrhoeae testing on specific pxd-TKV-aovpwwtq sample types (female urine samples) have been validated by [facility]. This laboratory is certified by CLIA to perform high complexity testing. Samples from all other sites are not validated for this method. N. gonorrhoeae rRNA SUMIT+probe Ql (Unsp spec) Negative Negative [facility] and [address] Work Phone: Comment on above: SOURCE: Urine The AP KATIA Combo 2 assay is FDA-approved for Chlamydia trachomatis and Neisseria gonorrhoeae testing on female endocervical and vaginal swabs, ThinPrep liquid pap samples, male urine samples and urethral swabs. Performance characteristics for Chlamydia trachomatis and Neisseria gonorrhoeae testing on specific rzo-OFR-tmrcguoq sample types (female urine samples) have been validated by [facility]. This laboratory is certified by CLIA to perform high complexity testing. Samples from all other sites are not validated for this method. HIV 1/2 ANTIGEN/ANTIBODY SCR EEN WITH REFLEX TO CONFIRMATIONon 11-26-2021 HIV 1+2 Ab Qn (S) Non-Reactive See Below [facility] and [address] Work Phone: Comment on above: SOURCE: Reference Ra nge: NONREACTIVE HIV Ag/Ab screen is performed using the Siemens [employer] HIV Ag/Ab Combo assay which detects the presence of HIV p24 antigen as well as antibodies to HIV-1 (Group M and O) and HIV-2..No laboratory evidence of HIV infection. If acute HIV infection is suspected, consider testing for HIV RNA by PCR (viral load). HSV TYPE I / II, IGMon 11-26 HSV 1+2 IgM IA Qn (S) 0.78 {IV} <=0.89 [facility] [employer] Work Phone: Comment on above: INTERPRETIVE INFORMA [...] for more than 12 months post-infection.Performed By: [employer] [place] [address] [id number] Director: Carlene Gore MD LMPon 11-26-2021 Last menstrual period start date 13Nov2021 [employer] Work Phone: Laboratory - Cytologyon 11-08 Cytology report Cyto stain.thin prep Doc (Cvx/Vag) [employer] Phone: No Panel Informationon 11-26 >8.0 Abnormal [employer] Work Phone: Comment on above: POTENTIAL FOR CROSS- REACTIVITY BETWEENHSV I AND HSV II EXISTS.REF VALUESNEGATIVE <0.9EQUIVOCAL >=0.90 <=1.10POSITIVE >1.10 5.0 {INDEX} Abnormal [employer] Phone: Comment on above: REF VALUESNEGATIVE < 0.9EQUIVOCAL >=0.90 <=1.10POSITIVE >1.10 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 11-08 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 MACHINE OPERATOR ARC - Office Visit Diagnoses/Problems Assessed Screening for cervical cancer (V76.2) (Z12.4) Colitis, trichomonas (007.3) (A07.8) Infection due to Tritrichomonas species (136.8) (A07.8) Orders HIV 1/2 ANTIGEN/ANTIBODY SCREEN WITH REFLEX TO CONFIRMATION; Status:Active; Requested for:26Nov2021; HSV IgG1 And IgG2 Ab; Status:Active; Requested for:26Nov2021; HSV TYPE I / II, IGM; Status:Active; Requested for:26Nov2021; SYPHILIS SCREENING WITH REFLEX; Status:Active; Requested for:26Nov2021; PAP OPERATOR [employer], Cytology; Status:In Progress - Specimen/Data Collected,Retrospective Authorization; Done: 26Nov2021 Last Menstrual Period (LMP): : 11/13/2021 PAP - Site : CERVICAL Cytology Order : ThinPrep PAP, Screening, HPV Reflex - Include Genotyping Provider Impressions Patient is a 26-year-old who comes in 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 Pap smear was done. Currently declines contraception since she is not sexually active. Trichomoniasis found on exam. Will treat with Flagyl and will do a full STD panel. Follow-up in 3 weeks for test of cure. Also informed her that her partner needs to be treated. Chief Complaint Patient here today for yearly. Her last pap was 3-4 years ago in [place] that the patient states was normal. She has no concerns. She does not do a self breast exam. LMP:11/13/2021 History of Present IllnessPatient is a 26-year-old who comes in 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 Patient reports she has not been [...] Weekly Vitals Vital Signs Recorded: 26Nov2021 09:02AM Inilrhzw381 Nwyqrwaoy23 Height5 ft 2 in Xyccrh220 lb BMI Kpkzduskxg75.09 kg/m2 BSA Calculated1.78 [id number] Physical Exam Constitutional: Healthy-appearing woman in no distress. Head and Face: No obvious lesions. Neck: Supple without adenopathy. Cardiovascular: Regular rate and rhythm. Pulmonary: Clear to auscultation. Chest: Breasts were symmetrical with diffuse fibrocystic changes but no discrete masses discharge or retraction. Abdomen: Soft nontender no masses. External genitalia was slightly erythematous. The vagina was well estr (more content not included)... Normal [place] SYPHILIS SCREENING WITH REFL EXon 11-26-2021 T. pallidum IgG+IgM IA Ql (S) Non-Reactive See Below [facility] and [address] [place], [place] [address] Work Phone: Comment on above: Reference Range: NON REACTIVENo significant level of Treponema pallidum antibody detected. Repeat testing in 2 to 4 weeks may be considered if early infection or incubating syphilis infection is suspected. Hemoglobin A1Con 11-12-2021 Glucose [Mass/Vol] 266 mg/dL [facility] Work Phone: HbA1c (Bld) [Mass fraction] 10.9 % Abnormal [facility] Work Phone: Comment on above: Diagnosis of Diabete s-Adults Non-Diabetic: < or = 5.6% Increased risk for developing diabetes: 5.7-6.4% Diagnostic of diabetes: > or = 6.5%. Monitoring of Diabetes Age (y) Therapeutic Goal (%) Adults: >18 <7.0 Pediatrics: 13-18 <7.5 7-12 <8.0 0- 6 7.5-8.5 [employer]. Diabetes Care 33(S1), Jun 2009. Laboratory - Chemistry and C hemistry - challengeon 11-12-2021 Anion gap [Moles/Vol] 13 mmol/L 10 - 20 [facility] Work Phone: Calcium [Mass/Vol] 9.4 mg/dL 8.6 - 10.3 [facility] Work Phone: Chloride [Moles/Vol] 105 mmol/L 98 - 107 [facility] Work Phone: CO2 [Moles/Vol] 23 mmol/L 21 - 32 [facility] Work Phone: Creatinine [Mass/Vol] 0.51 mg/dL See Below [facility] Work Phone: Comment on above: Reference Range: 0.5 0 - 1.05 Glucose [Mass/Vol] 96 mg/dL 74 - 99 [facility] Work Phone: Potassium [Moles/Vol] 3.8 mmol/L 3.5 - 5.3 [facility] Work Phone: Sodium [Moles/Vol] 137 mmol/L 136 - 145 [facility] Work Phone: Urea nitrogen [Mass/Vol] 11 mg/dL 6 - 23 [facility] Work Phone: No Panel Informationon 11-12 >90 >90 [facility] Work Phone: Comment on above: CALCULATIONS OF ASCENCION MATED GFR ARE PERFORMED USING THE 2020 CKD-EPI STUDY REFIT EQUATION WITHOUT THE RACE VARIABLE FOR THE IDMS-TRACEABLE CREATININE METHODS.https://jasn.asnjournals.org/content/early// N.3346143225 Office Visit (Family Medicin e)on 11-12-2021 Follow-up [...] in access program for 3 months 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 case manager working on SSI/SSD due to mental illness has been suicidal recently but is improving lives alone dtr lives grandparents in [place] became homeless August 2021 activity walks and [...] AGE 15 Surgical History History of Cholecystectomy 2015 History of Dilation and curettage Family History [...] Vital Signs Recorded: 12Nov2021 10:17AM Heart Rate95 Zabkegsk093 Nlqtqbftw68 Tmefha130.5 cm Zznlfs51.74 kg BMI Upfieljnvz66.95 kg/m2 BSA Calculated1.82 Tobacco Usea) Yes PHQ-2 [...] Nov 12 2021 10:47AM EST (Author) Normal [place] Tobacco Screening.on Adult depression screening assessment Yes [facility] Work Phone: Tobacco use status CPHS a) Yes [facility] Work Phone: Auth for Release of Medical Recordson 08-07-2021 Auth for Release of Medical Records [id number] D:127 Normal [facility] Lab Reportson 08-06-2021 Lab Reports [id number]#1.00C D:[address] 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 SHe is DM2, asthma. Sees Светлана for psych. 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 Here today requesting [...] history of borderline personality disorder. 2019 - NL pap smear per patient. [employer] in [place], no longer follows them. OARRS reviewed and [...] and can add years to your life. 2-340-VBTH-NOW or www.smokefree.gov provide access to helpful resources [...] disorder) (F41.1: (more content not included)... Normal [facility] Comment on above: Result Comment: Elec tronically Signed By: Katiana BOYD CNP\Date and Time Signed: 08/05/21 08:57 EST Hemoglobin A1Con 08-05-2021 Glucose [Mass/Vol] 235 mg/dL Normal [facility] Comment on above: Result Comment: The ADA and AACC recommend providing the estimated average glucose result to permit better patient understanding of their HBA1c result. Performed By: #### C DP CP, TSHX #### [facility] [address] [place], [place] [phone] [employer] Application Consultant: Milly Truong MD #### LIPR, GLYHGB, URNMAB #### [facility] [place], [place] [phone] [employer] Consultant: Brice Jovel MD HbA1c (Bld) [Mass fraction] 9.8 % High 4.0-6.0 [facility] Comment on above: Performed By: #### C RAY CP, TSHX #### [facility] [address] [place], [place] [phone] [employer] Consultant: Milly Truong MD #### LIPRebecca, GLYHGB, URNMAB #### [address] [phone] [employer] Consultant: Brice Jovel MD Lipid Profileon 08-04-2021 Cholesterol [Mass/Vol] 252 mg/dL High <200 [facility] Comment on above: Result Comment: Cholesterol Guidelines: <200 Desirable 200-240 Borderline >240 Undesirable Performed By: #### C JALEEL BELL, TSHX #### [facility] [address] [place], [place] [phone] [employer] Consultant: Milly Truong MD #### LIPR, GLYHGB, URNMAB #### [facility] [address] [place] [address] [employer] Consultant: Brice Jovel MD Cholesterol in HDL [Mass/Vol] 43 mg/dL Normal >40 [facility] Comment on above: Result Comment: HDL Guidelines: <40 Undesirable 40-59 Borderline >59 Desirable Performed By: #### C DP, CP, TSHX #### [facility] [address] [place], [place] [phone] [employer] Consultant: Milly Truong MD #### LIPR, GLYHGB, URNMAB #### [facility] [employer] [facility] [place] [address] [employer] Consultant: Brice Jovel MD Cholesterol in LDL [Mass/Vol] 180 mg/dL High 0-130 [facility] Comment on above: Result Comment: LDL Guidelines: <100 Desirable 100-129 Near to/above Desirable 130-159 Borderline >159 Undesirable Direct (measured) LDL and calculated LDL are not interchangeable tests. Performed By: #### C JALEEL BELL, TSHX #### [facility] [address] [place], [place] [phone] [employer] Consultant: Milly Truong MD #### LIPRebecca, GLYHGB, URNMAB #### [address] [address] [employer] Consultant: Brice Jovel MD Cholesterol.total/Cho lesterol in HDL [Mass ratio] 5.9 {ratio} High <5 [facility] Comment on above: Performed By: #### C JALEEL BELL, TSHX #### [facility] [address] [place], [place] [phone] [employer] Consultant: Milly Truong MD #### LIPR, GLYHGB, URNMAB #### [address] [address] [employer] Consultant: Brice Jovel MD Triglyceride [Mass/Vol] 144 mg/dL Normal <150 [facility] Comment on above: Result Comment: Triglyceride Guidelines: <150 Desirable 150-199 Borderline 200-499 High >499 Very high Based on AHA Guidelines for fasting triglyceride, March 2012. Performed By: #### C JALEEL BELL, TSHX #### [facility] [address] [place], [place] [phone] [employer] Consultant: Milly Truong MD #### LIPR, GLYHGB, URNMAB #### [facility] [address] [place] [phone] [employer] Consultant: Brice Jovel MD Microalb.,Random Uron 2021 Creatinine [Mass/Vol] 194.3 mg/dL Normal 28.0-217.0 [facility] Comment on above: Performed By: #### C DP, CP, TSHX #### [facility] [address] [place], [place] [phone] [employer] Consultant: Milly Truong MD #### LIPR, GLYHGB, URNMAB #### [place] [address] [place], [place] [phone] [employer] Consultant: Brice Jovel MD Microalb/Creat Ratio 20 mcg/mg creat Normal <25 [facility] Comment on above: Performed By: #### C DP, CP, TSHX #### [facility] [address] [place] [phone] [employer] Consultant: Milly Truong MD #### LIPRebecca, GLYHGB, URNMAB #### [address] [place], [place] [phone] [employer] Consultant: Brice Jovel MD Microalbumin conc. 38 mg/L High <21 [facility] Comment on above: Performed By: #### C DP, CP, TSHX #### [facility] [address] [place], [place] [phone] [employer] Application Consultant: Milly Truong MD #### LIPR, GLYHGB, URNMAB #### [address] [place], [place] [phone] [employer] Consultant: Brice Jovel MD CBC with Diffon 08-03-2021 Abs. Basophil 0.00 k/uL Normal 0.0-0.2 [facility] Comment on above: Performed By: #### C DP, CP, TSHX #### [facility] [address] [place] [address] [employer] Application Consultant: Milly Truong MD #### LIPR, GLYHGB, URNMAB #### [address] [place], [place] [phone] [employer] Consultant: Brice Jovel MD Abs.Neutrophil (Seg) 5.40 k/uL Normal 2.5-7.0 [facility] Comment on above: Performed By: #### C DP, CP, TSHX #### [facility] [address] [place] [phone] ( [employer] Application Consultant: Milly Truong MD #### LIPR, GLYHGB, URNMAB #### [address] [place], [place] [phone] [employer] Consultant: Brice Jovel MD Auto Diff Performed YES Normal [facility] Comment on above: Performed By: #### C DP, CP, TSHX #### [facility] [address] [place] [phone] ( [employer] Consultant: Milly Truong MD #### LIPR, GLYHGB, URNMAB #### [address] [place], [place] [phone] [employer] Consultant: Brice Jovel MD Basophils/100 WBC (Bld) 0 % Normal 0-2 [facility] Comment on above: Performed By: #### C DP, CP, TSHX #### [facility] [address] [place] [phone] ( [employer] Application Consultant: Milly Truong MD #### LIPR, GLYHGB, URNMAB #### [address] [place], [place] [phone] [employer] Consultant: Brice Jovel MD Eosinophils (Bld) [#/Vol] 0.20 10*3/uL Normal 0.0-0.4 [facility] Comment on above: Performed By: #### C DP, CP, TSHX #### [facility] [address] [place] [address] [employer] Consultant: Milly Truong MD #### LIPR, GLYHGB, URNMAB #### [address] [address] [place] [phone] [employer] Consultant: Brice Jovel MD Eosinophils/100 WBC (Bld) 2 % Normal 0-5 [facility] Comment on above: Performed By: #### C DP, CP, TSHX #### [facility] [address] [place] [phone] [employer] Consultant: Milly Truong MD #### LIPR, GLYHGB, URNMAB #### [place] [phone] [employer] Consultant: Brice Jovel MD Erythrocyte distribution width (RBC) [Ratio] 12.2 % Normal 12.1-15.2 [facility] Comment on above: Performed By: #### C DP, CP, TSHX #### [facility] [address] [place] [phone] [employer] Application Consultant: Milly Truong MD #### LIPRebecca, GLYHGB, URNMAB #### [place] [phone] [employer] Consultant: Brice Jovel MD Hematocrit (Bld) [Volume fraction] 45.6 % Normal 36-46 [facility] Comment on above: Performed By: #### C DP, CP, TSHX #### [facility] [address] [place] [phone] [employer] Application Consultant: Milly Truong MD #### LIPR, GLYHGB, URNMAB #### [place] [phone] [employer] Application Consultant: Brice Jovel MD Hemoglobin (Bld) [Mass/Vol] 15.9 g/dL Normal 12.0-16.0 [facility] Comment on above: Performed By: #### C DP, CP, TSHX #### [facility] [address] [place], [place] [phone] [employer] Application Consultant: Milly Truong MD #### LIPR, GLYHGB, URNMAB #### [address] [phone] [employer] Consultant: Brice Jovel MD Lymphocytes (Bld) [#/Vol] 2.50 10*3/uL Normal 1.0-4.8 [facility] Comment on above: Performed By: #### C DP, CP, TSHX #### [facility] [address] [place] [address] [employer] Application Consultant: Milly Truong MD #### LIPR, GLYHGB, URNMAB #### [address] [phone] [employer] Consultant: Brice Jovel MD Lymphocytes/100 WBC (Bld) 30 % Normal 15-40 [facility] Comment on above: Performed By: #### C DP, CP, TSHX #### [facility] [address] [place] [address] [employer] Application Consultant: Milly Truong MD #### LIPR, GLYHGB, URNMAB #### [address] [phone] [employer] Application Consultant: Brice Jovel MD MCH (RBC) [Entitic mass] 29.1 pg Normal 26-34 [facility] Comment on above: Performed By: #### C DP, CP, TSHX #### [facility] [address] [place], [place] [phone] [employer] Application Consultant: Milly Truong MD #### LIPR, GLYHGB, URNMAB #### [address] [phone] [employer] Application Consultant: Brice Jovel MD MCHC (RBC) [Mass/Vol] 34.8 g/dL Normal 31-37 [facility] Comment on above: Performed By: #### C DP, CP, TSHX #### [facility] [address] [place] [address] [employer] Application Consultant: Milly Truong MD #### LIPR, GLYHGB, URNMAB #### [address] [phone] [employer] Application Consultant: Brice Joevl MD MCV (RBC) [Entitic vol] 83.8 fL Normal 80-100 [facility] Comment on above: Performed By: #### C DP, CP, TSHX #### [facility] [address] [place] [address] [employer] Application Consultant: Milly Truong MD #### LIPR, GLYHGB, URNMAB #### [place] [address] [employer] Application Consultant: Brice Jovel MD Monocytes (Bld) [#/Vol] 0.20 10*3/uL Normal 0.0-1.0 [facility] Comment on above: Performed By: #### C DP, CP, TSHX #### [facility] [address] [place] [address] [employer] Application Consultant: Milly Truong MD #### LIPR, GLYHGB, URNMAB #### [address] [address] [employer] Application Consultant: Brice Jovel MD Monocytes/100 WBC (Bld) 2 % Low 4-8 [facility] Comment on above: Performed By: #### C DP, CP, TSHX #### [facility] [address] [place] [address] [employer] Application Consultant: Milly Truong MD #### LIPR, GLYHGB, URNMAB #### [address] [phone] [employer] Application Consultant: Brice Jovel MD Neutrophil (Seg) 66 % Normal 47-75 [facility] Comment on above: Performed By: #### C DP, CP, TSHX #### [facility] [address] [place] [address] [employer] Application Consultant: Milly Truong MD #### LIPR, GLYHGB, URNMAB #### [address] [place] [address] [employer] Application Consultant: Brice Jovel MD Platelets (Bld) [#/Vol] 306 10*3/uL Normal 140-450 [facility] Comment on above: Performed By: #### C DP, CP, TSHX #### [facility] [address] [place] [address] [employer] Application Consultant: Milly Truong MD #### LIPR, GLYHGB, URNMAB #### [address] [address] [employer] Application Consultant: Brice Jovel MD RBC (Bld) [#/Vol] 5.45 10*6/uL High 4.0-5.2 [facility] Comment on above: Performed By: #### C DP, CP, TSHX #### [facility] [address] [place] [address] [employer] Application Consultant: Milly Truong MD #### LIPR, GLYHGB, URNMAB #### [address] [address] [employer] Consultant: Brice Jovel MD WBC (Bld) [#/Vol] 8.3 10*3/uL Normal 3.5-11.0 [facility] Comment on above: Performed By: #### C DP, CP, TSHX #### [facility] [address] [place] [address] [employer] Application Consultant: Milly Truong MD #### LIPR, GLYHGB, URNMAB #### [address] [place], [place] [phone] [employer] Application Consultant: Brice Jovel MD Comp Metabolic Profon 2021 (cont.) Normal [facility] Comment on above: Result Comment: Aver age GFR for 20-29 years old: 116 mL/min/1.73sq m Chronic Kidney Disease: <60 mL/min/1.73sq m Kidney failure: <15 mL/min/1.73sq m eGFR calculated using average adult body mass. Additional eGFR calculator available at: http://www.[employer]/multiple_crcl_2011.htm Performed By: #### C JALEEL BELL, TSHX #### [facility] [address] [place], [place] [phone] [employer] Application Consultant: Milly Truong MD #### LAURENR, GLYHGB, URNMAB #### [address] [address] [employer] Application Consultant: Brice Jovel MD Albumin [Mass/Vol] 4.3 g/dL Normal 3.5-5.2 [facility] Comment on above: Performed By: #### C JALEEL BELL, TSHX #### [facility] [address] [place], [place] [phone] [employer] Application Consultant: Milly Truong MD #### VALDEMAR HERMOSILLOHGB, URNMAB #### [address] [address] [employer] Application Consultant: Brice Jovel MD Alkaline Phos 106 U/L High 35-104 [facility] Comment on above: Performed By: #### C JALEEL BELL, TSHX #### [facility] [address] [place], [place] [phone] [employer] Application Consultant: Milly Truong MD #### LIPR, GLYHGB, URNMAB #### [address] [phone] [employer] Application Consultant: Brice Jovel MD ALT [Catalytic activity/Vol] 19 U/L Normal 5-33 [facility] Comment on above: Performed By: #### C DP, CP, TSHX #### [facility] [address] [place], [place] [phone] [employer] Application Consultant: Milly Truong MD #### LIPR, GLYHGB, URNMAB #### [address] [phone] [employer] Application Consultant: Brice Jovel MD Anion gap [Moles/Vol] 13 mmol/L Normal 9-17 [facility] Comment on above: Performed By: #### C RAY CP, TSHX #### [facility] [address] [place], [place] [phone] [employer] Application Consultant: Milly Truong MD #### LIPRebecca, GLYHGB, URNMAB #### [address] [phone] [employer] Application Consultant: Brice Jovel MD AST [Catalytic activity/Vol] 12 U/L Normal <32 [facility] Comment on above: Performed By: #### C RAY, CP, TSHX #### [facility] [address] [place], [place] [phone] [employer] Application Consultant: Milly Truong MD #### LIPRebecca, GLYHGB, URNMAB #### [address] [phone] [employer] Application Consultant: Brice Jovel MD Bilirubin [Mass/Vol] 0.37 mg/dL Normal 0.30-1.20 [facility] Comment on above: Performed By: #### C DP, CP, TSHX #### [facility] [address] [place], [place] [phone] [employer] Application Consultant: Milly Truong MD #### LIPR, GLYHGB, URNMAB #### [address] [phone] [employer] Application Consultant: Brice Jovel MD BUN/CRE Ratio 17 Normal 9-20 [facility] Comment on above: Performed By: #### C DP, CP, TSHX #### [facility] [address] [place] [address] [employer] Application Consultant: Milly Truong MD #### LIPR, GLYHGB, URNMAB #### [facility] [address] [place] [address] [employer] Application Consultant: Brice Jovel MD Calcium [Mass/Vol] 9.4 mg/dL Normal 8.6-10.4 [facility] Comment on above: Performed By: #### C DP, CP, TSHX #### [facility] [address] [place], [place] [phone] [employer] Application Consultant: Milly Truong MD #### LIPR, GLYHGB, URNMAB #### [facility] [address] [place], [place] [phone] [employer] Application Consultant: Brcie Jovel MD Chloride [Moles/Vol] 94 mmol/L Low 98-107 [facility] Comment on above: Performed By: #### C DP, CP, TSHX #### [facility] [address] [place], [place] [phone] [employer] Application Consultant: Milly Truong MD #### LIPRebecca, GLYHGB, URNMAB #### [facility] [address] [place], [place] [phone] [employer] Application Consultant: Brice Jovel MD CO2 [Moles/Vol] 26 mmol/L Normal 20-31 [facility] Comment on above: Performed By: #### C DP, CP, TSHX #### [facility] [address] [place], [place] [phone] [employer] Application Consultant: Milly Truong MD #### LIPR, GLYHGB, URNMAB #### [address] [phone] [employer] Application Consultant: Brice Jovel MD Creatinine [Mass/Vol] 0.52 mg/dL Normal 0.50-0.90 [facility] Comment on above: Performed By: #### C DP, CP, TSHX #### [facility] [address] [place], [place] [phone] [employer] Application Consultant: Milly Truong MD #### LIPR, GLYHGB, URNMAB #### [address] [phone] [employer] Application Consultant: Brice Jovel MD GFR, Amer >60 Normal >60 [facility] Comment on above: Performed By: #### C DP, CP, TSHX #### [facility] [address] [place] [address] [employer] Application Consultant: Milly Truong MD #### LIPR, GLYHGB, URNMAB #### [address] [phone] [employer] Application Consultant: Brice Jovel MD GFR,non Amer >60 Normal >60 [facility] Comment on above: Performed By: #### C DP, CP, TSHX #### [facility] [address] [place], [place] [phone] [employer] Application Consultant: Milly Truong MD #### LIPR, GLYHGB, URNMAB #### [address] [phone] [employer] Application Consultant: Brice Jovel MD Glucose [Mass/Vol] 291 mg/dL High 70-99 [facility] Comment on above: Performed By: #### C DP, CP, TSHX #### [facility] [address] [place], [place] [phone] [employer] Application Consultant: Milly Truong MD #### LIPR, GLYHGB, URNMAB #### [facility] [address] [place] [address] [employer] Application Consultant: Brice Jovel MD Potassium [Moles/Vol] 3.7 mmol/L Normal 3.7-5.3 [facility] Comment on above: Performed By: #### C DP, CP, TSHX #### [facility] [address] [place], [place] [phone] [employer] Application Consultant: Milly Truong MD #### LIPR, GLYHGB, URNMAB #### [address] [place], [place] [phone] [employer] Application Consultant: Brice Jovel MD Protein [Mass/Vol] 8.0 g/dL Normal 6.4-8.3 [facility] Comment on above: Performed By: #### C DP, CP, TSHX #### [facility] [address] [place] [phone] [employer] Application Consultant: Milly Truong MD #### LIPRebecca, GLYHGB, URNMAB #### [address] [place], [place] [phone] [employer] Application Consultant: Brice Jovel MD Sodium [Moles/Vol] 133 mmol/L Low 135-144 [facility] Comment on above: Performed By: #### C DP, CP, TSHX #### [facility] [address] [place] [phone] [employer] Application Consultant: Milly Truong MD #### LIPR, GLYHGB, URNMAB #### [address] [place], [place] [phone] [employer] Application Consultant: Brice Jovel MD Urea nitrogen [Mass/Vol] 9 mg/dL Normal 6-20 [facility] Comment on above: Performed By: #### C DP, CP, TSHX #### [facility] [address] [place], [place] [phone] [employer] Application Consultant: Milly Truong MD #### LIPR, GLYHGB, URNMAB #### [facility] [address] [place] [address] [employer] Application Consultant: Brice Jovel MD TSH w/reflex to FT4on 2021 TSH Qn 0.65 m[IU]/L Normal 0.30-5.00 [facility] Comment on above: Performed By: #### C DP, CP, TSHX #### [facility] [address] [place] [address] [employer] Application Consultant: Milly Truong MD #### JAIMEE, GLYHGB, URNMAB #### [facility] [address] [place] [address] [employer] Application Consultant: Brice Jovel MD Patient Educationon 08-02-19 Patient [...] plan? Your health care provider or certified adaptive physical educator can help you make a plan for [...] ? Your health care provider or certified adaptive physical educator can help you make a plan for [...] Document Reviewe (more content not included)... Normal [facility] Blood Pressure Cuff Sizeon 0 01-04-2021 Fall risk assessment a) No falls within the last year [facility] Work Phone: Tobacco use status [facility] a) Yes [facility] Work Phone: Blood Pressure Cuff Size Adult [facility] Work Phone: Blood Pressure Cuff Size Yes [facility] Work Phone: Blood Pressure Cuff Sizeon 0 11-02-2020 Fall risk assessment a) No falls within the last year [facility] Work Phone: Tobacco use status [facility] a) Yes [facility] Work Phone: Blood Pressure Cuff Size Adult [facility] Work Phone: Blood Pressure Cuff Size a) Yes [facility] Work Phone: Acetaminophen Level, Serumon 10-23-2020 Acetaminophen [Mass/Vol] ug/mL See Below [facility] Work Phone: Comment on above: Reference Range: 10. 0 - 30.0 Acetylsalicylic Acid Level, Serumon 10-23-2020 Salicylates [Mass/Vol] mg/dL 4 - 20 [facility] Work Phone: Alcohol, Serumon 10-23-2020 Ethanol [Mass/Vol] mg/dL [facility] Work Phone: Comment on above: FOR MEDICAL USE ONLY . .REF VALUES <10 Complete Blood Count + Diffe rentialon 10-23-2020 Basophils/100 WBC (Bld) 0.8 % 0.0 - 2.0 [facility] Work Phone: Erythrocyte distribution width (RBC) [Ratio] 12.7 % See Below [facility] Work Phone: Comment on above: Reference Range: 11. 5 - 14.5 Hematocrit (Bld) [Volume fraction] 44.6 % See Below [facility] Work Phone: Comment on above: Reference Range: 36. 0 - 46.0 Hemoglobin (Bld) [Mass/Vol] 15.2 g/dL See Below [facility] Work Phone: Comment on above: Reference Range: 12. 0 - 16.0 Lymphocytes/100 WBC (Bld) 23.6 % See Below [facility] Work Phone: Comment on above: Reference Range: 13. 0 - 44.0 MCHC (RBC) [Mass/Vol] 34.0 g/dL See Below [facility] Work Phone: Comment on above: Reference Range: 32. 0 - 36.0 MCV (RBC) [Entitic vol] 85 fL 80 - 100 [facility] Work Phone: Monocytes/100 WBC (Bld) 4.5 % 2.0 - 10.0 [facility] Work Phone: Neutrophils/100 WBC (Bld) 70.1 % See Below [facility] Work Phone: Comment on above: Reference Range: 40. 0 - 80.0 Platelets (Bld) [#/Vol] 245 10*3/uL 150 - 450 [facility] Work Phone: RBC (Bld) [#/Vol] 5.24 {x10E12/L} above high threshold See Below [facility] Work Phone: Comment on above: Reference Range: 4.0 0 - 5.20 WBC (Bld) [#/Vol] 9.7 10*3/uL 4.4 - 11.3 [facility] Work Phone: Complete Blood Count + Differential 0.10 {x10E9/L} See Below [facility] Work Phone: Comment on above: Reference Range: 0.0 0 - 0.10 Reference Range: 0.0 0 - 0.70 Complete Blood Count + Differential 0.40 {x10E9/L} See Below [facility] Work Phone: Comment on above: Reference Range: 0.1 0 - 1.00 Complete Blood Count + Differential 2.30 {x10E9/L} See Below [facility] Work Phone: Comment on above: Reference Range: 1.2 0 - 4.80 Complete Blood Count + Differential 6.80 {x10E9/L} See Below [facility] Work Phone: Comment on above: Reference Range: 1.2 0 - 7.70 Percent differential counts (%) should be interpreted in the context of the absolute cell counts (cells/L). Complete Blood Count + Differential 1.0 % 0.0 - 6.0 [facility] Work Phone: Coronavirus 2019 RNA by PCR, Symptomaticon 10-23-2020 Coronavirus 2019 RNA by PCR, Symptomatic Not detected Normal See Below [facility] [place] Work Phone: Comment on above: SOURCE: Nasal, Nasop haryngealReference Range: Not Detected.This test has received FDA Emergency Use Authorization (EUA) and has been verified by [facility]. This test is only authorized for the duration of time that circumstances exist to justify the authorization of the emergency use of in vitro diagnostic tests for the detection of SARS-CoV-2 virus and/or diagnosis of COVID-19 infection under section 564(b)(1) of the Act, 21 U.S.C. 360bbb-3(b)(1), unless the authorization is terminated or revoked sooner. [facility] is certified under CLIA-88 as qualified to perform high complexity testing. Testing is performed in the [facility] laboratory located at [address] [place] [address].SARS-CoV-2/Flu/RSV Multiplex Test: Fact sheet for providers: https://www.fda.gov/media/202828/downloadFact sheet for patients: https://www.fda.gov/media/336767/download Laboratory - Chemistry and C hemistry - challengeon 10-23-2020 Albumin BCP dye [Mass/Vol] 4.1 g/dL 3.4 - 5.0 [facility] Work Phone: ALP [Catalytic activity/Vol] 107 U/L 33 - 110 [facility] Work Phone: ALT With P-5'-P [Catalytic activity/Vol] 26 U/L 7 - 45 [facility] Work Phone: Comment on above: Patients treated wit h Sulfasalazine may generate falsely decreased results for ALT. Anion gap [Moles/Vol] 13 mmol/L 10 - 20 [facility] Work Phone: AST With P-5'-P [Catalytic activity/Vol] 14 U/L 9 - 39 [facility] Work Phone: Bilirubin [Mass/Vol] 0.4 mg/dL 0.0 - 1.2 [facility] Work Phone: Calcium [Mass/Vol] 9.4 mg/dL 8.6 - 10.3 [facility] Work Phone: Chloride [Moles/Vol] 98 mmol/L 98 - 107 [facility] Work Phone: CO2 [Moles/Vol] 26 mmol/L 21 - 32 [facility] Work Phone: Creatinine [Mass/Vol] 0.54 mg/dL See Below [facility] [place] [facility] Work Phone: Comment on above: Reference Range: 0.5 0 - 1.05 Glucose [Mass/Vol] 345 mg/dL above high threshold 74 - 99 [facility] Work Phone: Potassium [Moles/Vol] 4.0 mmol/L 3.5 - 5.3 [facility] Work Phone: Protein [Mass/Vol] 7.5 g/dL 6.4 - 8.2 [facility] Work Phone: Sodium [Moles/Vol] 133 mmol/L below low threshold 136 - 145 [facility] Work Phone: Urea nitrogen [Mass/Vol] 8 mg/dL 6 - 23 [facility] Work Phone: Laboratory - Drug toxicology on 10-23-2020 Amphetamines Screen Ql (U) Negative NEGATIVE [facility] Work Phone: Comment on above: CUTOFF LEVEL: 500 NG /ML Cross-reactivity has been reported with high concentrations of the following drugs: buproprion, chloroquine, chlorpromazine, ephedrine, mephentermine, fenfluramine, phentermine, phenylpropanolamine, pseudoephedrine, and propranolol. Barbiturates Screen Ql (U) Negative NEGATIVE [facility] Work Phone: Comment on above: CUTOFF LEVEL: 200 NG /ML Benzodiazepines Ql (U) Negative NEGATIVE [facility] Work Phone: Comment on above: CUTOFF LEVEL: 200 NG /ML Benzoylecgonine Screen Ql (U) Negative NEGATIVE [facility] Work Phone: Comment on above: CUTOFF LEVEL: 150 NG /ML Cannabinoids Screen Ql (U) Negative NEGATIVE [facility] Work Phone: Comment on above: CUTOFF LEVEL: 50 NG/ ML Methadone Screen Ql (U) Negative NEGATIVE [facility] Work Phone: Comment on above: CUTOFF LEVEL: 150 NG /ML The metabolite X-kdqny-yqisrtilgwndfo (LAAM) is not detected by this method in concentrations that would be found in the urine of patients on LAAM therapy. Opiates Screen Ql (U) Negative NEGATIVE [facility] Work Phone: Comment on above: CUTOFF LEVEL: 300 NG /ML The opiate screen does not detect fentanyl, meperidine, or tramadol. Oxycodone is not consistently detected (refer to Oxycodone Screen, Urine result). oxyCODONE+oxyMORphone Screen Ql (U) Negative NEGATIVE [facility] Work Phone: Comment on above: CUTOFF LEVEL: 100 NG /ML This test will accurately detect both oxycodone and oxymorphone. Phencyclidine Ql (U) Negative NEGATIVE [facility] Work Phone: Comment on above: CUTOFF LEVEL: 25 NG/ ML Cross-reactivity has been reported with dextromethorphan. No Panel Informationon 10-23 >60 >60 [facility] Work Phone: Comment on above: CALCULATIONS OF ASCENCION MATED GFR ARE PERFORMED USING THE MDRD STUDY EQUATION FOR THE IDMS-TRACEABLE CREATININE METHODS. CLIN CHEM 2007;53:766-72 SEE BELOW [facility] Work Phone: Comment on above: Drug screen results are presumptive and should not be used to assess compliance with prescribed medication. Contact the performing [facility] laboratory to add-on definitive confirmatory [...] 10-23-2020 XR Chest Single view Normal MP-U H [facility] Work Phone: Urinalysison 10-23-2020 Color (U) Straw See Below [facility] Work Phone: Comment on above: Reference Range: STR AW,YELLOW Glucose Ql (U) >=500(3+) Abnormal NEGATIVE [facility] Work Phone: Ketones Ql (U) 5(TRACE) Abnormal NEGATIVE [facility] Work Phone: Leukocyte esterase Test strip Ql (U) MODERATE(2+) Abnormal NEGATIVE [facility] Work Phone: pH (U) 5.0 [pH] 5.0 - 8.0 [facility] Work Phone: Protein (U) [Mass/Vol] Negative NEGATIVE [facility] Work Phone: RBC (U) [#/Vol] Negative NEGATIVE [facility] Work Phone: Specific gravity (U) [Rel density] 1.037 1 above high threshold See Below [facility] Work Phone: Comment on above: Reference Range: 1.0 05 - 1.035 Urinalysis Negative NEGATIVE [facility] Work Phone: Comment on above: CUTOFF LEVEL: 1 NG/M L The performance characteristics of this test have been determined by the individual laboratory site where testing is performed. This test has not been cleared or approved by the FDA; however, the FDA has determined that such clearance is not necessary. Urinalysis <2.0 0.0 - 1.9 [facility] Work Phone: Urinalysis HAZY CLEAR [facility] Work Phone: Urinalysis, Microscopicon Urinalysis, Microscopic 5 {/HPF} [facility] Work Phone: Urinalysis, Microscopic None 0-5 [facility] Work Phone: Urinalysis, Microscopic 19 {/HPF} Abnormal 0-5 [facility] Work Phone: EEG (STANDARD)on 07-19-2020 Srini Medina MD 07/19/2020 4:43 [facility] Report Reason for EEG: Spells [...] epileptiform discharges or ictal activity was seen. [facility] COVID-19, MOLECULARon 2019 SARS-COV-2 RNA (JANIS) Not Detected Normal Not Detected [facility] Comment on above: Result Comment: This [...] at the following links: For Healthcare Providers: https://www.fda.gov/media/129957/download For Patients: https://www.fda.gov/media/502368/download Performed By: #### L [id number] #### [facility] [address] [place] [address] Regluo Hazel M.D. [id number] Hemoglobin A1Con 01-31-2020 HbA1c (Bld) [Mass fraction] 8.2 % [facility] Work Phone: Comment on above: Diagnosis of Diabete s-Adults Non-Diabetic: < or = 5.6% Increased risk for developing diabetes: 5.7-6.4% Diagnostic of diabetes: > or = 6.5%. Monitoring of Diabetes Age (y) Therapeutic Goal (%) Adults: >18 <7.0 Pediatrics: 13-18 <7.5 7-12 <8.0 0- 6 7.5-8.5 [employer]. Diabetes Care 33(S1), Jun 2009. HbA1c (Bld) [Mass fraction] 189 {MG/DL} [facility] Work Phone: Sedimentation Rateon 020 ESR (Bld) [Velocity] 19 mm/h [facility] Interpretation and review of laboratory results Normal [facility] Complete Blood Count + Diffe rentialon 09-28-2019 Basophils (Bld) [#/Vol] 0.10 {x10E9/L} See Below [facility] Work Phone: Comment on above: Reference Range: 0.0 0 - 0.10 Basophils/100 WBC (Bld) 0.8 % 0.0 - 2.0 [facility] Work Phone: Eosinophils (Bld) [#/Vol] 0.20 {x10E9/L} See Below [facility] Work Phone: Comment on above: Reference Range: 0.0 0 - 0.70 Eosinophils/100 WBC (Bld) 2.1 % 0.0 - 6.0 [facility] Work Phone: Erythrocyte distribution width (RBC) [Ratio] 12.7 % See Below [facility] Work Phone: Comment on above: Reference Range: 11. 5 - 14.5 Hematocrit (Bld) [Volume fraction] 42.0 % See Below [facility] Work Phone: Comment on above: Reference Range: 36. 0 - 46.0 Hemoglobin (Bld) [Mass/Vol] 14.4 g/dL See Below [facility] Work Phone: Comment on above: Reference Range: 12. 0 - 16.0 Lymphocytes (Bld) [#/Vol] 2.20 {x10E9/L} See Below [facility] Work Phone: Comment on above: Reference Range: 1.2 0 - 4.80 Lymphocytes/100 WBC (Bld) 29.7 % See Below [facility] Work Phone: Comment on above: Reference Range: 13. 0 - 44.0 MCHC (RBC) [Mass/Vol] 34.4 g/dL See Below [facility] Work Phone: Comment on above: Reference Range: 32. 0 - 36.0 MCV (RBC) [Entitic vol] 87 fL 80 - 100 [facility] Work Phone: Monocytes (Bld) [#/Vol] 0.40 {x10E9/L} See Below [facility] Work Phone: Comment on above: Reference Range: 0.1 0 - 1.00 Monocytes/100 WBC (Bld) 5.2 % 2.0 - 10.0 [facility] Work Phone: Neutrophils (Bld) [#/Vol] 4.70 {x10E9/L} See Below [facility] Work Phone: Comment on above: Reference Range: 1.2 0 - 7.70 Percent differential counts (%) should be interpreted in the context of the absolute cell counts (cells/L). Neutrophils/100 WBC (Bld) 62.2 % See Below [facility] Work Phone: Comment on above: Reference Range: 40. 0 - 80.0 Platelets (Bld) [#/Vol] 263 {x10E9/L} 150 - 450 [facility] Work Phone: RBC (Bld) [#/Vol] 4.85 {x10E12/L} See Below [facility] Work Phone: Comment on above: Reference Range: 4.0 0 - 5.20 WBC (Bld) [#/Vol] 0.1 {/100_WBC} [facility] Work Phone: WBC (Bld) [#/Vol] 7.5 {x10E9/L} 4.4 - 11.3 [facility] Work Phone: HCG, Beta Quantitativeon HCG.beta subunit Qn m[IU]/mL [facility] Work Phone: Comment on above: Low-level positive CG results can be seen in early [...] HCG measurement is performed using the [employer] Access Immunoassay which detects intact HCG and free beta HCG subunit. This test is not indicated for use as a tumor marker. HCG testing is performed using a different test methodology at [facility] than other [facility] hospitals. Direct result comparison should only be made within the same method. REF VALUESNON FEMALE <5MALES <5 Hemoglobin A1Con 09-28-2019 HbA1c (Bld) [Mass fraction] 7.2 % [facility] Work Phone: Comment on above: Diagnosis of Diabete s-Adults Non-Diabetic: < or = 5.6% Increased risk for developing diabetes: 5.7-6.4% Diagnostic of diabetes: > or = 6.5%. Monitoring of Diabetes Age (y) Therapeutic Goal (%) Adults: >18 <7.0 Pediatrics: 13-18 <7.5 7-12 <8.0 0- 6 7.5-8.5 [employer]. Diabetes Care 33(S1), Jun 2009. HbA1c (Bld) [Mass fraction] 160 {MG/DL} [facility] Work Phone: Metabolic Panelon 09-28-2019 Anion gap [Moles/Vol] 11 mmol/L 10 - 20 [facility] Work Phone: Calcium [Mass/Vol] 9.6 mg/dL 8.6 - 10.3 [facility] Work Phone: Chloride [Moles/Vol] 104 mmol/L 98 - 107 [facility] Work Phone: CO2 [Moles/Vol] 26 mmol/L 21 - 32 [facility] Work Phone: Creatinine [Mass/Vol] 0.65 mg/dL See Below [facility] Work Phone: Comment on above: Reference Range: 0.5 0 - 1.05 Glucose [Mass/Vol] 252 mg/dL above high threshold 74 - 99 [facility] Work Phone: Potassium [Moles/Vol] 3.8 mmol/L 3.5 - 5.3 [facility] Work Phone: Sodium [Moles/Vol] 137 mmol/L 136 - 145 [facility] Work Phone: Urea nitrogen [Mass/Vol] 14 mg/dL 6 - 23 [facility] Work Phone: Otheron 09-28-2019 >60 >60 [facility] Work Phone: Comment on above: CALCULATIONS OF ASCENCION MATED GFR ARE PERFORMED USING THE MDRD STUDY EQUATION FOR THE IDMS-TRACEABLE CREATININE METHODS. CLIN CHEM 2007;53:766-72 Thyroidon 09-28-2019 TSH Qn 0.54 {mIU/L} See Below [facility] Work Phone: Comment on above: Reference Range: 0.4 4 - 3.98 Note new pediatric reference range as of 08/12/2019. TSH testing is performed using different testing methodology at [facility] than at other [facility]. Direct result comparisons should only be made within the same method. HCG, Beta Quantitativeon HCG.beta subunit Qn m[IU]/mL [facility] and [employer] Work Phone: Comment on above: Low-level positive [...] performed using a different test methodology at [facility] Direct result comparison should only be made within the same method. REF VALUESNON FEMALE <5MALES <5 IO HCG, Urine Test on 05-13-2019 HCG ( test) Ql (U) Negative [facility] and [employer] Work Phone: Comment on above: MEDLINE [id number] P 10/06/2020 URINALYSISon 03-21-2019 Bacteria Auto Ql (U) None Seen None Se en /hpf [facility] Bil[facility] Ql (U) Negative Negative [facility] Clarity Refractometry automated (U) Hazy Abnormal Clear [facility] Color (U) Yellow Colorless, Yellow [facility] Epithelial cells.squamous Auto (Urine sed) [#/Area] 4 [facility] Glucose Auto test strip (U) [Mass/Vol] Negative Negative mg/dL [facility] Hemoglobin Auto test strip Ql (U) Negative Negative [facility] Interpretation and review of laboratory results Abnormal [facility] Ketones (U) [Mass/Vol] Negative Negative mg/dL [facility] Leukocyte esterase Auto test strip Ql (U) Trace Abnormal Negative [facility] Mucus Auto (Urine sed) [#/Area] Rare None Seen, Rare /lpf [facility] Nitrite Auto test strip Ql (U) Negative Negative [facility] pH (U) 6.0 [pH] [facility] Protein (U) [Mass/Vol] Negative Negative mg/dL [facility] RBC Auto (Urine sed) [#/Area] <1 [facility] Specific gravity (U) [Rel density] 1.020 [facility] Spermatozoa Auto (Urine sed) [#/Area] Present Abnormal None Seen /hpf [facility] Urobilinogen (U) [Mass/Vol] >=4.0 Abnormal <2.0 mg/dL [facility] WBC Auto (Urine sed) [#/Area] 1 [facility] Microscopic examinat ion is performed on all urinalysis samples and only positive findings are reported. The test for blood on the chemical analytic portion of urinalysis may also be positive due to hemoglobinuria and myoglobinuria and if red blood cells are present they are quantified by microscopic examination. [facility] hCG, Blood,QUALitativeon Beta HCG ( test) Ql Negative Negative [facility] Interpretation and review of laboratory results Normal [facility] Negative: The result is less than or equal to 5 mIU/mL of HCG. [facility] Alcohol, Medicalon 9 Ethanol [Mass/Vol] mg/dL <10.00 mg/dL [facility] Interpretation and review of laboratory results Normal [facility] DRUGS OF ABUSE SCREEN, URINE on 03-11-2019 Amphetamines Ql (U) None Detected None Detected [facility] Comment on above: Urine Amphetamine Cu toff: < 1000 ng/mL = None Detected Barbiturates Screen Ql (U) None Detected None Detected [facility] Comment on above: Urine Barbiturates C utoff: < 200 ng/mL = None Detected Benzodiazepines Ql (U) None Detected None Detected [facility] Comment on above: Urine Benzodiazepine Cutoff: < 200 ng/mL = None Detected Cannabinoids Screen Ql (U) None Detected None Detected [facility] Comment on above: Urine Cannabinoids C utoff: < 50 ng/mL = None Detected Cocaine Ql (U) None Detected None Detected [facility] Comment on above: Urine Cocaine Cutoff : < 300 ng/mL = None Detected Interpretation and review of laboratory results Normal [facility] Methadone Screen Ql (U) None Detected None Detected [facility] Comment on above: Urine Methadone Cuto ff: < 300 ng/mL = None Detected Opiates Screen Ql (U) None Detected None Detected [facility] Comment on above: Urine Opiates Cutoff : < 300 ng/mL = None Detected Oxycodone Ql (U) None Detected None Detected [facility] Comment on above: Urine Oxycodone Cuto ff: < 100 ng/mL = None Detected Screen results shoul d be used for treatment purposes only. [facility] Otheron 03-11-2019 Extra Tube Hold for add-ons. [facility] Comment on above: Auto resulted. URINALYSISon 03-11-2019 Bacteria Auto Ql (U) None Seen None Se en /hpf [facility] Bilirubin Ql (U) Negative Negative [facility] th Clarity Refractometry automated (U) Hazy Abnormal Clear [facility] Color (U) Yellow Colorless, Yellow [facility] Epithelial cells.squamous Auto (Urine sed) [#/Area] 6 High [facility] Glucose Auto test strip (U) [Mass/Vol] Negative Negative mg/dL [facility] Hemoglobin Auto test strip Ql (U) Negative Negative [facility] Interpretation and review of laboratory results Abnormal [facility] Ketones (U) [Mass/Vol] Trace Abnormal Negative mg/dL [facility] Leukocyte esterase Auto test strip Ql (U) Negative Negative [facility] Mucus Auto (Urine sed) [#/Area] Few Abnormal None Seen, Rare /lpf [facility] Nitrite Auto test strip Ql (U) Negative Negative [facility] pH (U) 5.0 [pH] [facility] Protein (U) [Mass/Vol] Negative Negative mg/dL [facility] RBC Auto (Urine sed) [#/Area] 2 [facility] Specific gravity (U) [Rel density] 1.029 High [facility] Transitional cells Computer assisted (U) [#/Area] <1 [facility] Urobilinogen (U) [Mass/Vol] 2.0 mg/dL Abnormal <2.0 [facility] WBC Auto (Urine sed) [#/Area] 2 [facility] Microscopic examinat ion is performed on all urinalysis samples and only positive findings are reported. The test for blood on the chemical analytic portion of urinalysis may also be positive due to hemoglobinuria and myoglobinuria and if red blood cells are present they are quantified by microscopic examination. [facility] URINE HCG QUALon 03-11-2019 Beta HCG ( test) Ql (U) Negative Normal NEGATIVE [facility] Comment on above: Performed By: #### U HCGT #### Testing performed at [facility] [address] [facility] [place] [address] Urine Pregnancyon 03-11-2019 HCG ( test) Ql (U) Negative Negative [facility] Interpretation and review of laboratory results Normal [facility] Alcohol, Medicalon 9 Ethanol [Mass/Vol] mg/dL <10.00 mg/dL [facility] Interpretation and review of laboratory results Normal [facility] DRUGS OF ABUSE SCREEN, URINE on 02-10-2019 Amphetamines Ql (U) None Detected None Detected [facility] Comment on above: Urine Amphetamine Cu toff: < 1000 ng/mL = None Detected Barbiturates Screen Ql (U) None Detected None Detected [facility] Comment on above: Urine Barbiturates C utoff: < 200 ng/mL = None Detected Benzodiazepines Ql (U) None Detected None Detected [facility] Comment on above: Urine Benzodiazepine Cutoff: < 200 ng/mL = None Detected Cannabinoids Screen Ql (U) None Detected None Detected [facility] Comment on above: Urine Cannabinoids C utoff: < 50 ng/mL = None Detected Cocaine Ql (U) None Detected None Detected [facility] Comment on above: Urine Cocaine Cutoff : < 300 ng/mL = None Detected Interpretation and review of laboratory results Normal [facility] Methadone Screen Ql (U) None Detected None Detected [facility] Comment on above: Urine Methadone Cuto ff: < 300 ng/mL = None Detected Opiates Screen Ql (U) None Detected None Detected [facility] Comment on above: Urine Opiates Cutoff : < 300 ng/mL = None Detected Oxycodone Ql (U) None Detected None Detected [facility] Comment on above: Urine Oxycodone Cuto ff: < 100 ng/mL = None Detected Screen results shoul d be used for treatment purposes only. [facility] Otheron 02-10-2019 Extra Tube Hold for add-ons. [facility] Comment on above: Auto resulted. Urine Pregnancyon 02-10-2019 HCG ( test) Ql (U) Negative Negative [facility] Interpretation and review of laboratory results Normal [facility] Hemoglobin A1con 01-01-2019 HbA1c (Bld) [Mass fraction] 7.1 % High 4.3-5.6 [facility] Comment on above: Performed By: #### H BA1C #### [facility] Routine Lab [address], [place] [id number] HbA1c (Bld) [Mass fraction] 157 mg/dL Normal [facility] Comment on above: Performed By: #### H BA1C #### [facility] Routine Lab [address], [place] [id number] URINALYSISon 10-07-2018 Bacteria Auto Ql (U) Rare Abnormal None Se en /hpf [facility] Bilirubin Ql (U) Negative Negative [facility] th Clarity Refractometry automated (U) Hazy Abnormal Clear [facility] Color (U) Yellow Colorless, Yellow [facility] Epithelial cells.squamous Auto (Urine sed) [#/Area] 8 High [facility] Glucose Auto test strip (U) [Mass/Vol] 150 Abnormal Negative mg/dL [facility] Hemoglobin Auto test strip Ql (U) Negative Negative [facility] Interpretation and review of laboratory results Abnormal [facility] Ketones (U) [Mass/Vol] >=80 Abnormal Negative mg/dL [facility] Leukocyte esterase Auto test strip Ql (U) Small Abnormal Negative [facility] Nitrite Auto test strip Ql (U) Negative Negative [facility] pH (U) 5.0 [pH] [facility] Protein (U) [Mass/Vol] Negative Negative mg/dL [facility] RBC Auto (Urine sed) [#/Area] 2 [facility] Specific gravity (U) [Rel density] 1.014 [facility] Urobilinogen (U) [Mass/Vol] <2.0 <2.0 mg/dL [facility] WBC Auto (Urine sed) [#/Area] 17 High [facility] Microscopic examinat ion is performed on all urinalysis samples and only positive findings are reported. The test for blood on the chemical analytic portion of urinalysis may also be positive due to hemoglobinuria and myoglobinuria and if red blood cells are present they are quantified by microscopic examination. [facility] Urine Pregnancyon 10-07-2018 HCG ( test) Ql (U) Negative Negative [facility] Interpretation and review of laboratory results Normal [facility] XR CHEST AP/PA AND LATon Cholesterol [Mass/Vol] 1. No acute cardiopulmonary process. 2. Cholecystectomy. [facility] Workstation ID: [id number] [facility] EXAMINATION: XR CHES T AP/PA AND LAT [...] abnormality noted. The gallbladder is surgically absent. [facility], Rad In ji [facility] - 10/07/2018 2:37 AM EDT EXAMINATION: XR [...] 1. No acute cardiopulmonary process. 2. Cholecystectomy. [facility] Workstation ID: [id number] [facility] POC Glucoseon 10-06-2018 Glucose [Mass/Vol] 228 mg/dL High 65 - 99 mg/dL [facility] Interpretation and review of laboratory results Abnormal [facility] POC Glucoseon 10-05-2018 Glucose [Mass/Vol] 338 mg/dL High 65 - 99 mg/dL [facility] Interpretation and review of laboratory results Abnormal [facility] Glucose [Mass/Vol] 383 mg/dL High 65 - 99 mg/dL [facility] Interpretation and review of laboratory results Abnormal [facility] XR CHEST AP/PA AND LATon No acute cardiopulmonary disease. [facility] Workstation ID: [id number] [facility] CLINICAL HISTORY: Shortness of breath. EXAMINATION: PA AND LATERAL CHEST: 10/04/2018. COMPARISON: PA and lateral chest 03/29/2016. FINDINGS: Two views in 3 films are provided which demonstrate there is some motion artifact on the AP view chest. The visualized osseous structures, heart, mediastinum are normal. The aorta has normal contour. Lungs appear clear. There is no congestive heart failure or pneumothorax. [facility] Interface, Rad In Fu ji [employer] - 10/05/2018 [...] or pneumothorax. IMPRESSION: No acute cardiopulmonary disease. [employer] Workstation ID: [id number] [facility] Beta-Hydroxybutyrateon 10-04 Beta hydroxybutyrate [Moles/Vol] 0.2 mmol/L 0 - 0.3 mmol/L [facility] Interpretation and review of laboratory results Normal [facility] CBC WITH AUTO DIFFERENTIALon 10-04-2018 Basophils (Bld) [#/Vol] 0.04 10*3/uL [facility] Basophils/100 WBC (Bld) 0.4 % [facility] Eosinophils (Bld) [#/Vol] 0.23 10*3/uL [facility] Eosinophils/100 WBC (Bld) 2.6 % [facility] Erythrocyte distribution width (RBC) [Entitic vol] 12.2 % 11.6 - 14.8 % [facility] Hematocrit (Bld) [Volume fraction] 42.3 % 36 - 46 % [facility] Hemoglobin (Bld) [Mass/Vol] 14.5 g/dL 12 - 16 g/dL [facility] Immature granulocytes (Bld) [#/Vol] 0.03 10*3/uL [facility] Immature granulocytes/100 WBC (Bld) 0.30 % [facility] Comment on above: The IG parameter is the percentage of metamyelocytes, myelocytes, and promyelocytes. Lymphocytes (Bld) [#/Vol] 1.76 10*3/uL [facility] Lymphocytes/100 WBC (Bld) 19.8 % [facility] MCH (RBC) [Entitic mass] 28.3 pg 26 - 34 pg [facility] MCHC (RBC) [Mass/Vol] 34.3 g/dL 31 - 37 g/dL [facility] MCV (RBC) [Entitic vol] 82.6 fL 80 - 100 fL [facility] Monocytes (Bld) [#/Vol] 0.47 10*3/uL [facility] Monocytes/100 WBC (Bld) 5.3 % [facility] Neutrophils (Bld) [#/Vol] 6.37 10*3/uL [facility] Neutrophils/100 WBC (Bld) 71.6 % [facility] Nucleated RBC (Bld) [#/Vol] 0.00 10*3/uL [facility] Nucleated RBC/100 WBC (Bld) [Ratio] 0.0 % [facility] Platelet mean volume (Bld) [Entitic vol] 10.4 fL 9 - 15.5 fL [facility] Platelets (Bld) [#/Vol] 248 10*3/uL [facility] RBC (Bld) [#/Vol] 5.12 10*6/uL [facility] WBC (Bld) [#/Vol] 8.90 10*3/uL [facility] Comprehensive Metabolic Pane saleem 10-04-2018 Albumin [Mass/Vol] 4.0 g/dL 3.2 - 5.2 g/dL [facility] ALP [Catalytic activity/Vol] 90 U/L 40 - 140 U/L [facility] ALT [Catalytic activity/Vol] 28 U/L 14 - 65 U/L [facility] Anion gap [Moles/Vol] 12 mmol/L 10 - 2 0 mmol/L [facility] AST [Catalytic activity/Vol] 14 U/L 0 - 45 U/L [facility] Bilirubin [Mass/Vol] 0.3 mg/dL 0 - 1.3 mg/dL [facility] Calcium [Mass/Vol] 9.0 mg/dL 8.4 - 10. 2 mg/dL [facility] Chloride [Moles/Vol] 102 mmol/L 98 - 10 8 mmol/L [facility] Creatinine [Mass/Vol] 0.86 mg/dL 0.4 - 1.1 mg/dL [facility] GFR/1.73 sq M predicted among non-blacks MDRD (S/P/Bld) [Vol rate/Area] The eGFR should be used for monitoring renal function only and not for medication dosing. [facility] GFR/1.73 sq M.predicted CKD-EPI (S/P/Bld) [Vol rate/Area] 96 >=60 mL/min/1.73 m2 [facility] Glucose [Mass/Vol] 460 mg/dL Critically high 65 - 9 9 mg/dL [facility] HCO3 [Moles/Vol] 26 mmol/L 21 - 32 mmol/L [facility] Potassium [Moles/Vol] 4.1 mmol/L 3.5 - 5.1 mmol/L [facility] Protein [Mass/Vol] 8.0 g/dL 6 - 8 g/dL [facility] alth Sodium [Moles/Vol] 136 mmol/L 135 - 145 mmol/L [facility] Urea nitrogen [Mass/Vol] 14 mg/dL 8 - 25 mg/dL [facility] Urea nitrogen/Creatinine [Mass ratio] 16.3 mg/mg [facility] D-DIMER, QUANTITATIVEon - Fibrin D-dimer FEU (PPP) [Mass/Vol] 0.31 0.27 - 0.49 mcg/mL FEU [facility] Interpretation and review of laboratory results Normal [facility] A D-dimer concentrat ion of <0.5 micrograms per milliliter FEU is considered a low probability for pulmonary embolus (PE) and deep venous thrombosis (DVT). Results of this test should always be interpreted in conjunction with the patient's medical history,clinical presentation, and other findings. Clinical diagnosis should not be based on the results of the D-dimer alone. [facility] Other 10-04-2018 Extra Tube Hold for add-ons. [facility] Comment on above: Auto resulted. Interpretation and review of laboratory results Abnormal [facility] POC ARTERIAL BLOOD GAS PANEL -PULM - RALSon 10-04-2018 Alveolar-arterial oxygen Partial pressure difference 16.2 mm Hg [facility] Base excess Calc (Bld) [Moles/Vol] -0.9 mmol/L [facility] Breath rate setting Ventilator synchronized intermittent mandatory 0 [facility] CO2 (Bld) [Partial pressure] 39.4 mm[Hg] [facility] HCO3 (Bld) [Moles/Vol] 24.0 mmol/L 22 - 26 mmol/L [facility] Hematocrit (BldA) [Volume fraction] 44.4 % 36 - 46 % [facility] Hemoglobin (Bld) [Mass/Vol] 14.5 g/dL 12 - 16 g/dL [facility] Inhaled oxygen concentration 21 % [facility] Oxygen (Bld) [Partial pressure] 83 mm[Hg] [facility] pH (Bld) 7.39 [pH] [facility] SaO2% (BldA) [Mass fraction] 96.8 % 92 - 99 % [facility] Specimen source Nom (Unsp spec) Brachial, right [facility] Tidal volume setting Ventilator 0 [facility] POC Glucoseon 10-04-2018 Glucose [Mass/Vol] 377 mg/dL High 65 - 99 mg/dL [facility] Interpretation and review of laboratory results Abnormal [facility] Glucose [Mass/Vol] 442 mg/dL Critically high 65 - 9 9 mg/dL [facility] Interpretation and review of laboratory results Abnormal [facility] Critical result acte d upon time of test. Test performed at bedside. [facility] URINALYSISon 10-04-2018 Bacteria Auto Ql (U) None Seen None Se en /hpf [facility] Bilirubin Ql (U) Negative Negative [facility] th Clarity Refractometry automated (U) Clear Clear [facility] Color (U) Colorless Colorless, Yellow [facility] Epithelial cells.squamous Auto (Urine sed) [#/Area] 4 [facility] Glucose Auto test strip (U) [Mass/Vol] >=500 Abnormal Negative mg/dL [facility] Hemoglobin Auto test strip Ql (U) Negative Negative [facility] Ketones (U) [Mass/Vol] Negative Negative mg/dL [facility] Leukocyte esterase Auto test strip Ql (U) Negative Negative [facility] Nitrite Auto test strip Ql (U) Negative Negative [facility] pH (U) 7.0 [pH] [facility] Protein (U) [Mass/Vol] Negative Negative mg/dL [facility] RBC Auto (Urine sed) [#/Area] <1 [facility] Specific gravity (U) [Rel density] 1.018 [facility] Urobilinogen (U) [Mass/Vol] <2.0 <2.0 mg/dL [facility] WBC Auto (Urine sed) [#/Area] 1 [facility] Microscopic examinat ion is performed on all urinalysis samples and only positive findings are reported. The test for blood on the chemical analytic portion of urinalysis may also be positive due to hemoglobinuria and myoglobinuria and if red blood cells are present they are quantified by microscopic examination. [facility] Urine Pregnancyon 10-04-2018 HCG ( test) Ql (U) Negative Negative [facility] Interpretation and review of laboratory results Normal [facility] BHCG,QUANTITATIVEon 09-14-19 19 BHCG,QUANTITATIVE 0.00 MIU/ML Normal [facility] Comment on above: Result Comment: BHCG INTERPRETIVE [...] CMPF, BHCG2 #### Testing performed at [address] [address] CBCon 09-13-2018 ABSOLUTE BAS 0.1 X10 Normal [facility] Comment on above: Performed By: #### A CBC, CMPF, BHCG2 #### Testing performed at [address] [address] ABSOLUTE EOS 0.30 X10 Normal [facility] Comment on above: Performed By: #### A CBC, CMPF, BHCG2 #### Testing performed at [address] [address] ABSOLUTE NEUTROPHIL COUNT 4.7 x10 Normal 1.0-7.0 [facility] Comment on above: Performed By: #### A CBC, CMPF, BHCG2 #### Testing performed at [address] [address] Basophils/100 WBC (Bld) 0.6 % Normal 0.0-2.0 [facility] Comment on above: Performed By: #### A CBC, CMPF, BHCG2 #### Testing performed at [address] [address] DTYPE AUTO DIFF Normal [facility] Comment on above: Performed By: #### A CBC, CMPF, BHCG2 #### Testing performed at [address] [address] Eosinophils/100 WBC (Bld) 3.9 % Normal 0.0-11.0 [facility] Comment on above: Performed By: #### A CBC, CMPF, BHCG2 #### Testing performed at [address] [address] Lymphocytes (Bld) [#/Vol] 3.30 X10 Normal [facility] Comment on above: Performed By: #### A CBC, CMPF, BHCG2 #### Testing performed at [address] [address] Lymphocytes/100 WBC (Bld) 36.9 % Normal 20.0-55.0 [facility] Comment on above: Performed By: #### A CBC, CMPF, BHCG2 #### Testing performed at [address] [address] Monocytes (Bld) [#/Vol] 0.5 X10 Normal [facility] Comment on above: Performed By: #### A CBC, CMPF, BHCG2 #### Testing performed at [address] [address] Monocytes/100 WBC (Bld) 5.5 % Normal 0.0-10.0 [facility] Comment on above: Performed By: #### A CBC, CMPF, BHCG2 #### Testing performed at [address] [address] Neutrophils/100 WBC (Bld) 53.1 % Normal 37.0-75.0 [facility] Comment on above: Performed By: #### A CBC, CMPF, BHCG2 #### Testing performed at [address] [place] [address] Erythrocyte distribution width (RBC) [Ratio] 12.9 % Normal 11.5-14.5 [facility] Comment on above: Performed By: #### A CBC, CMPF, BHCG2 #### Testing performed at [address] [place] [address] Hematocrit (Bld) [Volume fraction] 44.2 % Normal 36.0-48.0 [facility] Comment on above: Performed By: #### A CBC, CMPF, BHCG2 #### Testing performed at [address] [address] Hemoglobin (Bld) [Mass/Vol] 15.7 g/dL Normal 12.0-16.0 [facility] Comment on above: Performed By: #### A CBC, CMPF, BHCG2 #### Testing performed at [address] [address] MCH (RBC) [Entitic mass] 29.1 pg Normal 26.0-35.0 [facility] Comment on above: Performed By: #### A CBC, CMPF, BHCG2 #### Testing performed at [address] [address] MCHC (RBC) [Mass/Vol] 35.5 g/dL Normal 27.0-37.0 [facility] Comment on above: Performed By: #### A CBC, CMPF, BHCG2 #### Testing performed at [address] [address] MCV (RBC) [Entitic vol] 82.2 fL Normal 80.0-100.0 [facility] Comment on above: Performed By: #### A CBC, CMPF, BHCG2 #### Testing performed at [address] [address] Platelet mean volume (Bld) [Entitic vol] 8.0 fL Normal 7.4-11.0 [facility] Comment on above: Performed By: #### A CBC, CMPF, BHCG2 #### Testing performed at [address] [address] Platelets (Bld) [#/Vol] 272 /cmm Normal 130.0-400.0 [facility] Comment on above: Performed By: #### A CBC, CMPF, BHCG2 #### Testing performed at [address] [address] RBC (Bld) [#/Vol] 5.38 /cmm Normal 4.0-5.4 [facility] Comment on above: Performed By: #### A CBC, CMPF, BHCG2 #### Testing performed at [address] [address] WBC (Bld) [#/Vol] 8.9 /cmm Normal 3.6-11.0 [facility] Comment on above: Performed By: #### A CBC, CMPF, BHCG2 #### Testing performed at [address] [address] CMP FASTINGon 09-13-2018 A:G RATIO 1.3 RATIO Normal 1.3-2.2 [facility] Comment on above: Performed By: #### A CBC, CMPF, BHCG2 #### Testing performed at [address] [address] Albumin [Mass/Vol] 4.4 G/dl Normal 3.5-5.0 [facility] Comment on above: Performed By: #### A CBC, CMPF, BHCG2 #### Testing performed at [address] [address] ALP [Catalytic activity/Vol] 77 U/L Normal 38-126 [facility] Comment on above: Performed By: #### A CBC, CMPF, BHCG2 #### Testing performed at [address] [address] ALT [Catalytic activity/Vol] 29 U/L Normal 14-54 [facility] Comment on above: Performed By: #### A CBC, CMPF, BHCG2 #### Testing performed at [address] [address] AST [Catalytic activity/Vol] 19 U/L Normal 15-41 [facility] Comment on above: Performed By: #### A CBC, CMPF, BHCG2 #### Testing performed at [address] [address] Bilirubin [Mass/Vol] 0.7 mg/dL Normal 0.2-1.2 [facility] Comment on above: Performed By: #### A CBC, CMPF, BHCG2 #### Testing performed at [address] [address] Creatinine [Mass/Vol] 0.6 mg/dL Normal 0.52-1.04 [facility] Comment on above: Performed By: #### A CBC, CMPF, BHCG2 #### Testing performed at [address] [address] EST. GFR, >60 Normal [facility] Comment on above: Performed By: #### A CBC, CMPF, BHCG2 #### Testing performed at [address] [address] EST. GFR,Non >60 Normal [facility] Comment on above: Performed By: #### A CBC, CMPF, BHCG2 #### Testing performed at [address] [address] GFR/1.73 sq M predicted among non-blacks MDRD (S/P/Bld) [Vol rate/Area] Average GFR for 20-29 years old = 116. Normal [facility] Comment on above: Result Comment: Gravel Screener andres Kidney disease, GFR = <60. Kidney failure, GFR = <15. The GFR estimate is not adjusted for extreme body surface area or acute process, nor has it been validated for women or ethnic groups other than and . Performed By: #### A CBC, CMPF, BHCG2 #### Testing performed at [address] [address] Protein [Mass/Vol] 7.8 g/dL Normal 6.3-8.2 [facility] Comment on above: Performed By: #### A CBC, CMPF, BHCG2 #### Testing performed at [address] [address] Urea nitrogen [Mass/Vol] 17 mg/dL Normal 7-20 [facility] Comment on above: Performed By: #### A CBC, CMPF, BHCG2 #### Testing performed at [address] [address] Calcium [Mass/Vol] 9.2 mg/dL Normal 8.4-10.2 [facility] Comment on above: Performed By: #### A CBC, CMPF, BHCG2 #### Testing performed at [address] [address] Chloride [Moles/Vol] 102 mmol/L Normal 98-107 [facility] Comment on above: Performed By: #### A CBC, CMPF, BHCG2 #### Testing performed at [address] [address] CO2 [Moles/Vol] 23 mmol/L Normal 22-30 [facility] Comment on above: Performed By: #### A CBC, CMPF, BHCG2 #### Testing performed at [address] [address] Glucose [Mass/Vol] 301 mg/dL High 70-100 [facility] Comment on above: Result Comment: NORMAL <100 mg/dL PREDIABETES 101-126 mg/dL DIABETES 126 mg/dL or higher Performed By: #### A CBC, CMPF, BHCG2 #### Testing performed at [address] [address] Potassium [Moles/Vol] 3.7 mmol/L Normal 3.5-5.1 [facility] Comment on above: Performed By: #### A CBC, CMPF, BHCG2 #### Testing performed at [address] [address] Sodium [Moles/Vol] 135 mmol/L Low 136-145 [facility] Comment on above: Performed By: #### A CBC, CMPF, BHCG2 #### Testing performed at [address] [address] BETA HCG, Lucie RANGEL HCG.beta subunit Qn 0.00 m[IU]/mL MIU/ML [facility] Comment on above: [facility] INTERPRETIVE RANGES: NON FEMALE 0-6 MIU/ML MALE [...] PLATELETon 2018 ABSOLUTE BASOPHIL COUNT 0.1 X10 [facility] Basophils/100 WBC (Bld) 0.6 % 0 - 2 % [facility] Differential cell count method Nom (Bld) AUTO DIFF % [facility] Eosinophils #/vol (Bld) 0.30 10*3/uL X10 [facility] Eosinophils/100 WBC (Bld) 3.9 % 0 - 11 % [facility] Erythrocyte distribution width Ratio (RBC) 12.9 % 11.5 - 14.5 % [facility] Hematocrit Volume Fraction (Bld) 44.2 % 36 - 48 % [facility] Hemoglobin mass conc (Bld) 15.7 g/dL [facility] Lymphocytes #/vol (Bld) 3.30 10*3/uL X10 [facility] Lymphocytes/100 WBC (Bld) 36.9 % 20 - 55 % [facility] MCH Entitic mass (RBC) 29.1 pg 26 - 35 PG [facility] MCHC mass conc (RBC) 35.5 g/dL [facility] MCV Entitic volume (RBC) 82.2 fL [facility] Monocytes #/vol (Bld) 0.5 10*3/uL X10 [facility] Monocytes/100 WBC (Bld) 5.5 % 0 - 10 % [facility] Neutrophils #/vol (Bld) 4.7 10*3/uL [facility] Neutrophils/100 WBC (Bld) 53.1 % 37 - 75 % [facility] Platelet mean volume Entitic volume (Bld) 8.0 fL [facility] Platelets #/vol (Bld) 272 10*3/uL [facility] RBC #/vol (Bld) 5.38 10*6/uL [facility] WBC #/vol (Bld) 8.9 10*3/uL [facility] Saleem 09-12-2018 Albumin mass conc 4.4 G/dl 3.5 - 5 G/dl [facility] Albumin/Globulin mass ratio 1.3 {ratio} [facility] ALP enzyme act/vol 77 U/L [facility] ALT enzyme act/vol 29 U/L [facility] AST enzyme act/vol 19 U/L [facility] Bilirubin mass conc 0.7 mg/dL [facility] Calcium mass conc 9.2 mg/dL [facility] Chloride molar conc 102 mmol/L [facility] CO2 molar conc 23 mmol/L [facility] Creatinine mass conc 0.6 mg/dL [facility] GFR/1.73 sq M predicted among blacks MDRD vol rate/area (S/P/Bld) mL/min/{1.73_m2} ml/min/1.73s q.m [facility] GFR/1.73 sq M predicted among non-blacks MDRD vol rate/area (S/P/Bld) mL/min/{1.73_m2} ml/min/1.73s q.m [facility] GFR/1.73 sq M predicted among non-blacks MDRD vol rate/area (S/P/Bld) Average GFR for 20-29 years old = 116. [facility] Comment on above: Chronic Kidney disea se, GFR = <60. Kidney failure, GFR = <15. The GFR estimate is not adjusted for extreme body surface area or acute process, nor has it been validated for women or ethnic groups other than and . Glucose fasting mass conc 301 mg/dL High [facility] Comment on above: NORMAL <100 mg/dL PREDIABETES 101-126 mg/dL DIABETES 126 mg/dL or higher Interpretation and review of laboratory results Abnormal [facility] Potassium molar conc 3.7 mmol/L [facility] Protein mass conc 7.8 g/dL [facility] Sodium molar conc 135 mmol/L Low [facility] Urea nitrogen mass conc 17 mg/dL [facility] HCG QUALITATIVE, URINEon HCG ( test) Ql (U) Negative NEGATIVE [facility] POCT GLUCOSEon 09-12-2018 Glucose mass conc 247 mg/dL Abnormal 70 - 99 mg/dL [facility] Interpretation and review of laboratory results Abnormal [facility] URINALYSIS, MACROon 09-13-19 19 Bilirubin Ql (U) Negative NEGATIVE [facility] Clarity Nom (U) CLEAR [facility] Color Nom (U) YELLOW YELLOW [facility] H Glucose Test strip mass conc (U) 500 mg/dl Abnormal NEGATIVE [facility] Hemoglobin Ql (U) Negative NEGATIVE [facility] Interpretation and review of laboratory results Abnormal [facility] Ketones mass conc (U) 15 mg/dl Abnormal NEGATIVE [facility] Leukocyte esterase Test strip Ql (U) Negative NEGATIVE [facility] Nitrite Ql (U) Negative NEGATIVE [facility] TH pH (U) 5.5 [pH] [facility] Protein Ql (U) Negative NEGATIVE mg/dl [facility] Specific gravity Relative Density (U) 1.020 [facility] H Urobilinogen mass conc (U) 0.2 mg/dl 0.2 - 1 mg/dl [facility] URINE HCG QUALon 09-12-2018 Beta HCG ( test) Ql (U) Negative Normal NEGATIVE [facility] Comment on above: Performed By: #### U HCGT, UMAC, UMIC #### Testing performed at [address] [address] URINE MACROSCOPICon 09-13-19 19 Bilirubin Ql (U) Negative Normal NEGATIVE [facility] Comment on above: Performed By: #### U HCGT, UMAC, UMIC #### Testing performed at [address] [address] Clarity (U) CLEAR Normal CLEAR [facility] Comment on above: Performed By: #### U HCGT, UMAC, UMIC #### Testing performed at [address] [address] Color (U) YELLOW Normal YELLOW [facility] Comment on above: Performed By: #### U HCGT, UMAC, UMIC #### Testing performed at [address] [address] Glucose Ql (U) 500 mg/dl Abnormal NEGATIVE [facility] Comment on above: Performed By: #### U HCGT, UMAC, UMIC #### Testing performed at [address] [address] pH (U) 5.5 [pH] Normal 5.0-7.0 [facility] Comment on above: Performed By: #### U HCGT, UMAC, UMIC #### Testing performed at [address] [address] Protein (U) [Mass/Vol] Negative Normal NEGATIVE [facility] Comment on above: Performed By: #### U HCGT, UMAC, UMIC #### Testing performed at [address] [address] URINE HEMOGLOBIN Negative Normal NEGATIVE [facility] Comment on above: Performed By: #### U HCGT, UMAC, UMIC #### Testing performed at [address] [address] URINE KETONE 15 mg/dl Abnormal NEGATIVE [facility] Comment on above: Performed By: #### U HCGT, UMAC, UMIC #### Testing performed at [address] [address] URINE LEUKOTEST Negative Normal NEGATIVE [facility] Comment on above: Performed By: #### U HCGT, UMAC, UMIC #### Testing performed at [address] [address] URINE NITRATES Negative Normal NEGATIVE [facility] Comment on above: Performed By: #### U HCGT, UMAC, UMIC #### Testing performed at [address] [address] URINE SPEC GRAVITY 1.020 Normal 1.010-1.025 [facility] Comment on above: Performed By: #### U HCGT, UMAC, UMIC #### Testing performed at [address] [address] Urobilinogen Qn (U) 0.2 mg/dl Normal 0.2-1.0 [facility] Comment on above: Performed By: #### U HCGT, UMAC, UMIC #### Testing performed at [address] [address] URINE MICROSCOPICon 09-13-19 19 Bacteria LM.HPF (Urine sed) [#/Area] Negative Normal NEGATIVE [facility] Comment on above: Performed By: #### U HCGT, UMAC, UMIC #### Testing performed at [address] [address] Casts LM.LPF (Urine sed) [#/Area] NONE Normal NONE [facility] Comment on above: Performed By: #### U HCGT, UMAC, UMIC #### Testing performed at [address] [address] CRYSTAL NONE Normal NONE [facility] Comment on above: Performed By: #### U HCGT, UMAC, UMIC #### Testing performed at [address] [address] Epithelial cells LM.HPF (Urine sed) [#/Area] 5 TO 10 Normal [facility] Comment on above: Performed By: #### U HCGT, UMAC, UMIC #### Testing performed at [address] [address] Mucus Ql (Urine sed) Negative Normal NEGATIVE [facility] Comment on above: Performed By: #### U HCGT, UMAC, UMIC #### [place] [address] RBC (U) [#/Vol] Negative Normal NEGATIVE [facility] Comment on above: Performed By: #### U HCGT, UMAC, UMIC #### [place] [address] URINE COMMENT CULTURE CRITERIA NOT MET, NO CULTURE PERFORMED. Normal [facility] Comment on above: Performed By: #### U HCGT, UMAC, UMIC #### Testing performed at [address] [address] WBC (U) [#/Vol] Negative Normal NEGATIVE [facility] Comment on above: Performed By: #### U HCGT, UMAC, UMIC #### Testing performed at [address] [address] Bacteria LM.HPF #/area (Urine sed) Negative NEGATIVE [facility] Casts LM.LPF #/area (Urine sed) NONE NONE /LPF [facility] Crystals LM Nom (Urine sed) NONE NONE [facility] Epithelial cells LM Ql (Urine sed) 5 TO 10 /HPF [facility] Mucus Ql (Urine sed) Negative NEGATIVE [facility] RBC LM.HPF #/area (Urine sed) Negative NEGATIVE /HPF [facility] Urine sediment comments LM Jorge (Urine sed) CULTURE CRITERIA NOT MET, NO CULTURE PERFORMED. [facility] WBC LM.HPF #/area (Urine sed) Negative NEGATIVE /HPF [facility] Beta Hydroxybutyrateon 07-16 Beta Hydroxybutyrate 0.2 mmol/L Normal 0.00-0.30 [facility] Comment on above: Performed By: #### C BCDIF, HCGQT, LIPASE, CMET, BHBA #### Unless otherwise noted, all testing performed by [place] [address] CLIA: [id number] Paper Reeler: Cristofer Perry M.D. CBC with Diffon 07-16-2018 Basophils #/vol (Bld) 0.1 K/mcL Normal 0-0.2 [facility] Comment on above: Performed By: #### C BCDIF, HCGQT, LIPASE, CMET, BHBA #### Unless otherwise noted, all testing performed by [place] [address] CLIA: [id number] Paper Reeler: Cristofer Perry M.D. Basophils/100 WBC (Bld) 1.0 % Normal [facility] Comment on above: Performed By: #### C BCDIF, HCGQT, LIPASE, CMET, BHBA #### Unless otherwise noted, all testing performed by [place] [address] CLIA: [id number] Paper Reeler: Cristofer Perry M.D. Eosinophils #/vol (Bld) 0.1 K/mcL Normal 0-0.5 [facility] Comment on above: Performed By: #### C BCDIF, HCGQT, LIPASE, CMET, BHBA #### Unless otherwise noted, all testing performed by [place] [address] CLIA: [id number] Paper Reeler: Cristofer Perry M.D. Eosinophils/100 WBC (Bld) 1.1 % Normal [facility] Comment on above: Performed By: #### C BCDIF, HCGQT, LIPASE, CMET, BHBA #### Unless otherwise noted, all testing performed by [place] [address] CLIA: [id number] Paper Reeler: Cristofer Perry M.D. Erythrocyte distribution width Ratio (RBC) 13.6 % Normal 10.0-14.4 [facility] Comment on above: Performed By: #### C BCDIF, HCGQT, LIPASE, CMET, BHBA #### Unless otherwise noted, all testing performed by [place] [address] CLIA: [id number] Paper Reeler: Cristofer Perry M.D. Hematocrit Volume Fraction (Bld) 47.6 % High 34.4-44.8 [facility] Comment on above: Performed By: #### C BCDIF, HCGQT, LIPASE, CMET, BHBA #### Unless otherwise noted, all testing performed by [place] [phone] CLIA: [id number] Paper Reeler: Cristofer Perry M.D. Hemoglobin mass conc (Bld) 16.3 g/dL High 11.6-15.4 [facility] Comment on above: Performed By: #### C BCDIF, HCGQT, LIPASE, CMET, BHBA #### Unless otherwise noted, all testing performed by [place] [address] CLIA: [id number] Paper Reeler: Cristofer Perry M.D. Lymphocytes #/vol (Bld) 2.3 K/mcL Normal 1.0-3.7 [facility] Comment on above: Performed By: #### C BCDIF, HCGQT, LIPASE, CMET, BHBA #### Unless otherwise noted, all testing performed by [place] [address] CLIA: [id number] Paper Reeler: Cristofer Perry M.D. Lymphocytes/100 WBC (Bld) 29.8 % Normal [facility] Comment on above: Performed By: #### C BCDIF, HCGQT, LIPASE, CMET, BHBA #### Unless otherwise noted, all testing performed by [place] [address] CLIA: [id number] Paper Reeler: Cristofer Perry M.D. MCH Entitic mass (RBC) 27.5 pg Low 27.9-33.9 [facility] Comment on above: Performed By: #### C BCDIF, HCGQT, LIPASE, CMET, BHBA #### Unless otherwise noted, all testing performed by [place] [address] CLIA: [id number] Paper Reeler: Cristofer Perry M.D. MCHC mass conc (RBC) 34.1 g/dL Normal 33.1-35.1 [facility] Comment on above: Performed By: #### C BCDIF, HCGQT, LIPASE, CMET, BHBA #### Unless otherwise noted, all testing performed by [place] [address] CLIA: [id number] Paper Reeler: Cristofer Perry M.D. MCV Entitic volume (RBC) 80.7 fL Low 82.6-98.9 [facility] Comment on above: Performed By: #### C BCDIF, HCGQT, LIPASE, CMET, BHBA #### Unless otherwise noted, all testing performed by [address], [place] [address] CLIA: [id number] Paper Reeler: Cristofer Perry M.D. Monocytes #/vol (Bld) 0.5 K/mcL Normal 0.1-0.6 [facility] Comment on above: Performed By: #### C BCDIF, HCGQT, LIPASE, CMET, BHBA #### Unless otherwise noted, all testing performed by [place] [address] CLIA: [id number] Paper Reeler: Cristofer Perry M.D. Monocytes/100 WBC (Bld) 6.3 % Normal [facility] Comment on above: Performed By: #### C BCDIF, HCGQT, LIPASE, CMET, BHBA #### Unless otherwise noted, all testing performed by [place] [address] CLIA: [id number] Paper Reeler: Cristofer Perry M.D. Neutrophils #/vol (Bld) 4.7 K/mcL Normal 1.2-6.9 [facility] Comment on above: Performed By: #### C BCDIF, HCGQT, LIPASE, CMET, BHBA #### Unless otherwise noted, all testing performed by [place] [address] CLIA: [id number] Paper Reeler: Cristofer Perry M.D. Platelet mean volume Entitic volume (Bld) 8.3 fL Normal 7.0-10.6 [facility] Comment on above: Performed By: #### C BCDIF, HCGQT, LIPASE, CMET, BHBA #### Unless otherwise noted, all testing performed by [place] [address] CLIA: [id number] Paper Reeler: Cristofer Perry M.D. Platelets #/vol (Bld) 243 K/mcL Normal 162-402 [facility] Comment on above: Performed By: #### C BCDIF, HCGQT, LIPASE, CMET, BHBA #### Unless otherwise noted, all testing performed by [place] [address] CLIA: [id number] Paper Reeler: Cristofer Perry M.D. RBC #/vol (Bld) 5.90 M/mcL High 3.7-5.0 [facility] Comment on above: Performed By: #### C BCDIF, HCGQT, LIPASE, CMET, BHBA #### Unless otherwise noted, all testing performed by [place] [address] CLIA: [id number] Paper Reeler: Cristofer Perry M.D. Segmented Neut % 61.8 % Normal [facility] Comment on above: Performed By: #### C BCDIF, HCGQT, LIPASE, CMET, BHBA #### Unless otherwise noted, all testing performed by [place] [address] CLIA: [id number] Paper Reeler: Cristofer Perry M.D. WBC #/vol (Bld) 7.6 K/mcL Normal 3.4-10.6 [facility] Comment on above: Performed By: #### C BCDIF, HCGQT, LIPASE, CMET, BHBA #### Unless otherwise noted, all testing performed by [place] [address] CLIA: [id number] Paper Reeler: Cristofer Orlando, M.D. CT ABDO,PELVIS IV CONTRAST O FIDELYon 07-16-2018 CT ABDO,PELVIS IV CONTRAST ONLY Final Report Accession No: [id number] Performed: Jul 16 2018 4:33PM Examination: [...] WAYNE M.D. Trans: dcarr : cc: Normal [facility] Comprehensive Metabolic Pane saleem 07-16-2018 Albumin mass conc 4.2 g/dL Normal 3.2-5.2 [facility] Comment on above: Performed By: #### C BCDIF, HCGQT, LIPASE, CMET, BHBA #### Unless otherwise noted, all testing performed by [place] [address] CLIA: [id number] Paper Reeler: Cristofer Perry M.D. ALP enzyme act/vol 113 U/L Normal 40-140 [facility] Comment on above: Performed By: #### C BCDIF, HCGQT, LIPASE, CMET, BHBA #### Unless otherwise noted, all testing performed by [place] [address] CLIA: [id number] Paper Reeler: Cristofer Perry M.D. ALT enzyme act/vol 39 U/L Normal 14-65 [facility] Comment on above: Result Comment: This test result might be falsely depressed or falsely elevated on samples drawn from patients taking Sulfasalazine and Sulfapyridine. Venipuncture should occur prior to taking either of these drugs. Performed By: #### C BCDIF, HCGQT, LIPASE, CMET, BHBA #### Unless otherwise noted, all testing performed by [place] [address] CLIA: [id number] Paper Reeler: Cristofer Perry M.D. AST enzyme act/vol 12 U/L Normal 0-45 [facility] Comment on above: Result Comment: This test result might be falsely depressed or falsely elevated on samples drawn from patients taking Sulfasalazine and Sulfapyridine. Venipuncture should occur prior to taking either of these drugs. Performed By: #### C BCDIF, HCGQT, LIPASE, CMET, BHBA #### Unless otherwise noted, all testing performed by [place] [address] CLIA: [id number] Paper Reeler: Cristofer Perry M.D. Bilirubin mass conc 0.7 mg/dL Normal 0.3-1.2 [facility] Comment on above: Performed By: #### C BCDIF, HCGQT, LIPASE, CMET, BHBA #### Unless otherwise noted, all testing performed by [place] [address] CLIA: [id number] Paper Reeler: Cristofer Perry M.D. Calcium mass conc 9.7 mg/dL Normal 8.4-10.2 [facility] Comment on above: Performed By: #### C BCDIF, HCGQT, LIPASE, CMET, BHBA #### Unless otherwise noted, all testing performed by [place] [address] CLIA: [id number] Paper Reeler: Cristofer Perry M.D. Chloride molar conc 103 mmol/L Normal 98-108 [facility] Comment on above: Performed By: #### C BCDIF, HCGQT, LIPASE, CMET, BHBA #### Unless otherwise noted, all testing performed by [place] [address] CLIA: [id number] Paper Reeler: Cristofer Perry M.D. CO2 molar conc 25 mmol/L Normal 21-32 [facility] Comment on above: Performed By: #### C BCDIF, HCGQT, LIPASE, CMET, BHBA #### Unless otherwise noted, all testing performed by [place] [address] CLIA: [id number] Paper Reeler: Cristofer Perry M.D. Creatinine mass conc 0.90 mg/dL Normal 0.40-1.10 [facility] Comment on above: Performed By: #### C BCDIF, HCGQT, LIPASE, CMET, BHBA #### Unless otherwise noted, all testing performed by [place] [address] CLIA: [id number] Paper Reeler: Cristofer Perry M.D. GFR/1.73 sq M predicted among blacks MDRD vol rate/area (S/P/Bld) mL/min/{1.73_m2} Normal [facility] Comment on above: Result Comment: Afri can Syrian GFR Calc Performed By: #### C BCDIF, HCGQT, LIPASE, CMET, BHBA #### Unless otherwise noted, all testing performed by [address] [place], [place] [address] CLIA: [id number] Paper Reeler: Cristofer Perry M.D. GFR/1.73 sq M predicted among non-blacks MDRD vol rate/area (S/P/Bld) mL/min/{1.73_m2} Normal [facility] Comment on above: Result Comment: Non- [...] Unless otherwise noted, all testing performed by [place] [address] CLIA: [id number] Paper Reeler: Cristofer Perry M.D. Glucose mass conc 367 mg/dL High 70-99 [facility] Comment on above: Result Comment: This test result might be falsely depressed or falsely elevated on samples drawn from patients taking Sulfasalazine and Sulfapyridine. Venipuncture should occur prior to taking either of these drugs. Performed By: #### C BCDIF, HCGQT, LIPASE, CMET, BHBA #### Unless otherwise noted, all testing performed by [place] [address] CLIA: [id number] Paper Reeler: Cristofer Perry M.D. Potassium molar conc 3.6 mmol/L Normal 3.5-5.1 [facility] Comment on above: Performed By: #### C BCDIF, HCGQT, LIPASE, CMET, BHBA #### Unless otherwise noted, all testing performed by [place] [address] CLIA: [id number] Paper Reeler: Cristofer Perry M.D. Protein mass conc 8.4 g/dL High 6.0-8.0 [facility] Comment on above: Performed By: #### C BCDIF, HCGQT, LIPASE, CMET, BHBA #### Unless otherwise noted, all testing performed by [place] [address] CLIA: [id number] Paper Reeler: Cristofer Perry M.D. Sodium molar conc 140 mmol/L Normal 135-145 [facility] Comment on above: Performed By: #### C BCDIF, HCGQT, LIPASE, CMET, BHBA #### Unless otherwise noted, all testing performed by [place] [address] CLIA: [id number] Paper Reeler: Cristofer Perry M.D. Urea nitrogen mass conc 7 mg/dL Low 8-25 [facility] Comment on above: Performed By: #### C BCDIF, HCGQT, LIPASE, CMET, BHBA #### Unless otherwise noted, all testing performed by [place] [address] CLIA: [id number] Paper Reeler: Cristofer Perry M.D. Lipaseon 07-16-2018 Lipase enzyme act/vol 83 U/L Normal 73-393 [facility] Comment on above: Performed By: #### C BCDIF, HCGQT, LIPASE, CMET, BHBA #### Unless otherwise noted, all testing performed by [place] [address] CLIA: [id number] Paper Reeler: Cristofer Perry M.D. Test,Urine Qualon 07-16-2018 HCG.beta subunit ( test) Ql (U) Negative Normal Negative [facility] Comment on above: Result Comment: Rapi [...] Unless otherwise noted, all testing performed by [place] [address] CLIA: [id number] Paper Reeler: Cristofer Perry M.D. Urinalysis, Routineon 2018 Bilirubin,Urine Negative Normal NEG;NEGATIVE [facility] Comment on above: Performed By: #### C BCDIF, HCGQT, LIPASE, CMET, BHBA #### Unless otherwise noted, all testing performed by [place] [address] CLIA: [id number] Paper Reeler: Cristofer Perry M.D. Blood,Urine Negative Normal NEG;NEGATIVE [facility] Comment on above: Performed By: #### C BCDIF, HCGQT, LIPASE, CMET, BHBA #### Unless otherwise noted, all testing performed by [place] [address] CLIA: [id number] Paper Reeler: Cristofer Perry M.D. Character Nom (U) Hazy Normal [facility] Comment on above: Performed By: #### C BCDIF, HCGQT, LIPASE, CMET, BHBA #### Unless otherwise noted, all testing performed by [place] [address] CLIA: [id number] Paper Reeler: Cristofer Perry M.D. Color Nom (U) Yellow Normal [facility] Comment on above: Performed By: #### C BCDIF, HCGQT, LIPASE, CMET, BHBA #### Unless otherwise noted, all testing performed by [place] [phone] CLIA: [id number] Paper Reeler: Cristofer Perry M.D. Glucose Ql (U) >= 500 High < 70 [facility] Comment on above: Performed By: #### C BCDIF, HCGQT, LIPASE, CMET, BHBA #### Unless otherwise noted, all testing performed by [place] [phone] CLIA: [id number] Paper Reeler: Cristofer Perry M.D. Ketone,Urine Trace Abnormal NEG;NEGATIVE [facility] Comment on above: Performed By: #### C BCDIF, HCGQT, LIPASE, CMET, BHBA #### Unless otherwise noted, all testing performed by [place] [phone] CLIA: [id number] Paper Reeler: Cristofer Perry M.D. Leuk.Esterase,Urine Trace Abnormal Negative [facility] Comment on above: Performed By: #### C BCDIF, HCGQT, LIPASE, CMET, BHBA #### Unless otherwise noted, all testing performed by [place] [phone] CLIA: [id number] Paper Reeler: Cristofer Perry M.D. Nitrite,Urine Negative Normal NEG;NEGATIVE [facility] Comment on above: Performed By: #### C BCDIF, HCGQT, LIPASE, CMET, BHBA #### Unless otherwise noted, all testing performed by [place] [address] CLIA: [id number] Paper Reeler: Cristofer Perry M.D. pH (U) 6.0 [pH] Normal 4.5-8.0 [facility] Comment on above: Performed By: #### C BCDIF, HCGQT, LIPASE, CMET, BHBA #### Unless otherwise noted, all testing performed by [place] [address] CLIA: [id number] Paper Reeler: Cristofer Perry M.D. Protein mass conc (U) Negative Normal NEG;NEGATIVE [facility] Comment on above: Performed By: #### C BCDIF, HCGQT, LIPASE, CMET, BHBA #### Unless otherwise noted, all testing performed by [place] [address] CLIA: [id number] Paper Reeler: Cristofer Perry M.D. RBC LM.HPF #/area (Urine sed) /[HPF] Normal 0-5 [facility] Comment on above: Performed By: #### C BCDIF, HCGQT, LIPASE, CMET, BHBA #### Unless otherwise noted, all testing performed by [place] [address] CLIA: [id number] Paper Reeler: Cristofer Perry M.D. Specific [place],Urine 1.036 High 1.003-1.029 [facility] Comment on above: Performed By: #### C BCDIF, HCGQT, LIPASE, CMET, BHBA #### Unless otherwise noted, all testing performed by [address] [place], [place] [address] CLIA: [id number] Paper Reeler: Cristofer Perry M.D. Squamous Epithelial 4 /HPF Normal 0-40 [facility] Comment on above: Performed By: #### C BCDIF, HCGQT, LIPASE, CMET, BHBA #### Unless otherwise noted, all testing performed by [place] [address] CLIA: [id number] Paper Reeler: Cristofer Perry M.D. Urobilinogen,Urine < 2.0 Normal <2 [facility] Comment on above: Result Comment: Urob ilinogen, Urine Reference Range: <2.0 mg/dL Performed By: #### C BCDIF, HCGQT, LIPASE, CMET, BHBA #### Unless otherwise noted, all testing performed by [place] [address] CLIA: [id number] Paper Reeler: Cristofer Perry M.D. WBC,Urine 3 /HPF Normal 0-5 [facility] Comment on above: Performed By: #### C BCDIF, HCGQT, LIPASE, CMET, BHBA #### Unless otherwise noted, all testing performed by [place] [address] CLIA: [id number] Paper Reeler: Cristofer Perry M.D. Glucose, POCon 02-02-2018 Glucose mass conc 183 mg/dL High 70-105 [facility] Comment on above: Performed By: #### G LUX #### Unless otherwise noted, all testing performed by [place] [address] CLIA: [id number] Paper Reeler: Cristofer Perry M.D. Beta Hydroxybutyrateon 02-01 Beta Hydroxybutyrate 0.1 mmol/L Normal 0.00-0.30 [facility] Comment on above: Performed By: #### C BCDIF, HCGQT, LIPASE, CMET, BHBA #### Unless otherwise noted, all testing performed by [place] [address] CLIA: [id number] Paper Reeler: Cristofer Perry M.D. CBC with Diffon 02-01-2018 Basophils #/vol (Bld) 0.0 K/mcL Normal 0-0.2 [facility] Comment on above: Performed By: #### C BCDIF, HCGQT, LIPASE, CMET, BHBA #### Unless otherwise noted, all testing performed by [place] [address] CLIA: [id number] Paper Reeler: Cristofer Perry M.D. Basophils/100 WBC (Bld) 0.6 % Normal [facility] Comment on above: Performed By: #### C BCDIF, HCGQT, LIPASE, CMET, BHBA #### Unless otherwise noted, all testing performed by [place] [address] CLIA: [id number] Paper Reeler: Cristofer Perry M.D. Eosinophils #/vol (Bld) 0.1 K/mcL Normal 0-0.5 [facility] Comment on above: Performed By: #### C BCDIF, HCGQT, LIPASE, CMET, BHBA #### Unless otherwise noted, all testing performed by [place] [address] CLIA: [id number] Paper Reeler: Cristofer Orlando, M.D. Eosinophils/100 WBC (Bld) 1.9 % Normal [facility] Comment on above: Performed By: #### C BCDIF, HCGQT, LIPASE, CMET, BHBA #### Unless otherwise noted, all testing performed by [place] [address] CLIA: [id number] Paper Reeler: Cristofer Perry M.D. Erythrocyte distribution width Ratio (RBC) 14.3 % Normal 10.0-14.4 [facility] Comment on above: Performed By: #### C BCDIF, HCGQT, LIPASE, CMET, BHBA #### Unless otherwise noted, all testing performed by [place] [address] CLIA: [id number] Paper Reeler: Cristofer Perry M.D. Hematocrit Volume Fraction (Bld) 43.7 % Normal 34.4-44.8 [facility] Comment on above: Performed By: #### C BCDIF, HCGQT, LIPASE, CMET, BHBA #### Unless otherwise noted, all testing performed by [place] [address] CLIA: [id number] Paper Reeler: Cristofer Perry M.D. Hemoglobin mass conc (Bld) 15.0 g/dL Normal 11.6-15.4 [facility] Comment on above: Performed By: #### C BCDIF, HCGQT, LIPASE, CMET, BHBA #### Unless otherwise noted, all testing performed by [place] [address] CLIA: [id number] Paper Reeler: Cristofer Perry M.D. Lymphocytes #/vol (Bld) 2.7 K/mcL Normal 1.0-3.7 [facility] Comment on above: Performed By: #### C BCDIF, HCGQT, LIPASE, CMET, BHBA #### Unless otherwise noted, all testing performed by [place] [address] CLIA: [id number] Paper Reeler: Cristofer Perry M.D. Lymphocytes/100 WBC (Bld) 35.0 % Normal [facility] Comment on above: Performed By: #### C BCDIF, HCGQT, LIPASE, CMET, BHBA #### Unless otherwise noted, all testing performed by [place] [phone] CLIA: [id number] Paper Reeler: Cristofer Perry M.D. MCH Entitic mass (RBC) 27.5 pg Low 27.9-33.9 [facility] Comment on above: Performed By: #### C BCDIF, HCGQT, LIPASE, CMET, BHBA #### Unless otherwise noted, all testing performed by [place] [phone] CLIA: [id number] Paper Reeler: Cristofer Perry M.D. MCHC mass conc (RBC) 34.3 g/dL Normal 33.1-35.1 [facility] Comment on above: Performed By: #### C BCDIF, HCGQT, LIPASE, CMET, BHBA #### Unless otherwise noted, all testing performed by [place] [phone] CLIA: [id number] Paper Reeler: Cristofer Perry M.D. MCV Entitic volume (RBC) 80.3 fL Low 82.6-98.9 [facility] Comment on above: Performed By: #### C BCDIF, HCGQT, LIPASE, CMET, BHBA #### Unless otherwise noted, all testing performed by [place] [address] CLIA: [id number] Paper Reeler: Cristofer Perry M.D. Monocytes #/vol (Bld) 0.4 K/mcL Normal 0.1-0.6 [facility] Comment on above: Performed By: #### C BCDIF, HCGQT, LIPASE, CMET, BHBA #### Unless otherwise noted, all testing performed by [place] [address] CLIA: [id number] Paper Reeler: Cristofer Perry M.D. Monocytes/100 WBC (Bld) 4.8 % Normal [facility] Comment on above: Performed By: #### C BCDIF, HCGQT, LIPASE, CMET, BHBA #### Unless otherwise noted, all testing performed by [place] [address] CLIA: [id number] Paper Reeler: Cristofer Perry M.D. Neutrophils #/vol (Bld) 4.5 K/mcL Normal 1.2-6.9 [facility] Comment on above: Performed By: #### C BCDIF, HCGQT, LIPASE, CMET, BHBA #### Unless otherwise noted, all testing performed by [place] [address] CLIA: [id number] Paper Reeler: Cristofer Perry M.D. Platelet mean volume Entitic volume (Bld) 7.9 fL Normal 7.0-10.6 [facility] Comment on above: Performed By: #### C BCDIF, HCGQT, LIPASE, CMET, BHBA #### Unless otherwise noted, all testing performed by [facility] [place] [address] CLIA: [id number] Paper Reeler: Cristofer Perry M.D. Platelets #/vol (Bld) 274 K/mcL Normal 162-402 [facility] Comment on above: Performed By: #### C BCDIF, HCGQT, LIPASE, CMET, BHBA #### Unless otherwise noted, all testing performed by [place] [address] CLIA: [id number] Paper Reeler: Cristofer Perry M.D. RBC #/vol (Bld) 5.44 M/mcL High 3.7-5.0 [facility] Comment on above: Performed By: #### C BCDIF, HCGQT, LIPASE, CMET, BHBA #### Unless otherwise noted, all testing performed by [place] [address] CLIA: [id number] Paper Reeler: Cristofer Perry M.D. Segmented Neut % 57.7 % Normal [facility] Comment on above: Performed By: #### C BCDIF, HCGQT, LIPASE, CMET, BHBA #### Unless otherwise noted, all testing performed by [place] [address] CLIA: [id number] Paper Reeler: Cristofer Perry M.D. WBC #/vol (Bld) 7.8 K/mcL Normal 3.4-10.6 [facility] Comment on above: Performed By: #### C BCDIF, HCGQT, LIPASE, CMET, BHBA #### Unless otherwise noted, all testing performed by [place] [address] CLIA: [id number] Paper Reeler: Cristofer Perry M.D. Comprehensive Metabolic Pane saleem 02-01-2018 Albumin mass conc 3.8 g/dL Normal 3.2-5.2 [facility] Comment on above: Performed By: #### C BCDIF, HCGQT, LIPASE, CMET, BHBA #### Unless otherwise noted, all testing performed by [place] [address] CLIA: [id number] Paper Reeler: Cristofer Perry M.D. ALP enzyme act/vol 86 U/L Normal 40-140 [facility] Comment on above: Performed By: #### C BCDIF, HCGQT, LIPASE, CMET, BHBA #### Unless otherwise noted, all testing performed by [place] [address] CLIA: [id number] Paper Reeler: Cristofer Perry M.D. ALT enzyme act/vol 38 U/L Normal 14-65 [facility] Comment on above: Result Comment: This test result might be falsely depressed or falsely elevated on samples drawn from patients taking Sulfasalazine and Sulfapyridine. Venipuncture should occur prior to taking either of these drugs. Performed By: #### C BCDIF, HCGQT, LIPASE, CMET, BHBA #### Unless otherwise noted, all testing performed by [place] [address] CLIA: [id number] Paper Reeler: Cristofer Perry M.D. AST enzyme act/vol 11 U/L Normal 0-45 [facility] Comment on above: Result Comment: This test result might be falsely depressed or falsely elevated on samples drawn from patients taking Sulfasalazine and Sulfapyridine. Venipuncture should occur prior to taking either of these drugs. Performed By: #### C BCDIF, HCGQT, LIPASE, CMET, BHBA #### Unless otherwise noted, all testing performed by [place] [address] CLIA: [id number] Paper Reeler: Cristofer Perry M.D. Bilirubin mass conc 0.3 mg/dL Normal 0.3-1.2 [facility] Comment on above: Performed By: #### C BCDIF, HCGQT, LIPASE, CMET, BHBA #### Unless otherwise noted, all testing performed by [place] [address] CLIA: [id number] Paper Reeler: Cristofer Perry M.D. Calcium mass conc 9.0 mg/dL Normal 8.4-10.2 [facility] Comment on above: Performed By: #### C BCDIF, HCGQT, LIPASE, CMET, BHBA #### Unless otherwise noted, all testing performed by [place] [address] CLIA: [id number] Paper Reeler: Cristofer Perry M.D. Chloride molar conc 106 mmol/L Normal 98-108 [facility] Comment on above: Performed By: #### C BCDIF, HCGQT, LIPASE, CMET, BHBA #### Unless otherwise noted, all testing performed by [place] [address] CLIA: [id number] Paper Reeler: Cristofer Perry M.D. CO2 molar conc 20 mmol/L Low 21-32 [facility] Comment on above: Performed By: #### C BCDIF, HCGQT, LIPASE, CMET, BHBA #### Unless otherwise noted, all testing performed by [address] [place], [place] [address] CLIA: [id number] Paper Reeler: Cristofer Perry M.D. Creatinine mass conc 0.85 mg/dL Normal 0.40-1.10 [facility] Comment on above: Performed By: #### C BCDIF, HCGQT, LIPASE, CMET, BHBA #### Unless otherwise noted, all testing performed by [place] [address] CLIA: [id number] Paper Reeler: rCistofer Perry M.D. GFR/1.73 sq M predicted among blacks MDRD vol rate/area (S/P/Bld) mL/min/{1.73_m2} Normal [facility] Comment on above: Result Comment: Afri can Syrian GFR Calc Performed By: #### C BCDIF, HCGQT, LIPASE, CMET, BHBA #### Unless otherwise noted, all testing performed by [place] [address] CLIA: [id number] Paper Reeler: Cristofer Perry M.D. GFR/1.73 sq M predicted among non-blacks MDRD vol rate/area (S/P/Bld) mL/min/{1.73_m2} Normal [facility] Comment on above: Result Comment: Non- [...] Unless otherwise noted, all testing performed by [place] [address] CLIA: [id number] Paper Reeler: Cristofer Perry M.D. Glucose mass conc 360 mg/dL High 70-99 [facility] Comment on above: Result Comment: This test result might be falsely depressed or falsely elevated on samples drawn from patients taking Sulfasalazine and Sulfapyridine. Venipuncture should occur prior to taking either of these drugs. Performed By: #### C BCDIF, HCGQT, LIPASE, CMET, BHBA #### Unless otherwise noted, all testing performed by [place] [address] CLIA: [id number] Paper Reeler: Cristofer Perry M.D. Potassium molar conc 3.5 mmol/L Normal 3.5-5.1 [facility] Comment on above: Performed By: #### C BCDIF, HCGQT, LIPASE, CMET, BHBA #### Unless otherwise noted, all testing performed by [place] [address] CLIA: [id number] Paper Reeler: Cristofer Perry M.D. Protein mass conc 8.2 g/dL High 6.0-8.0 [facility] Comment on above: Performed By: #### C BCDIF, HCGQT, LIPASE, CMET, BHBA #### Unless otherwise noted, all testing performed by [place] [address] CLIA: [id number] Paper Reeler: Cristofer Perry M.D. Sodium molar conc 137 mmol/L Normal 135-145 [facility] Comment on above: Performed By: #### C BCDIF, HCGQT, LIPASE, CMET, BHBA #### Unless otherwise noted, all testing performed by [place] [address] CLIA: [id number] Paper Reeler: Cristofer Perry M.D. Urea nitrogen mass conc 11 mg/dL Normal 8-25 [facility] Comment on above: Performed By: #### C BCDIF, HCGQT, LIPASE, CMET, BHBA #### Unless otherwise noted, all testing performed by [place] [address] CLIA: [id number] Paper Reeler: Cristofer Perry M.D. Culture, Urineon 02-01-2018 Culture, Urine Test Name: Culture, Urine Culture Status: Final Culture Report: No significant growth. Micro Source: Urine Normal [facility] Comment on above: Performed By: #### C BCDIF, HCGQT, LIPASE, CMET, BHBA #### Unless otherwise noted, all testing performed by [place] [address] CLIA: [id number] Paper Reeler: Cristofer Perry M.D. Culture, Urine Test Name: Culture, Urine Culture Status: Final Culture Report: No Growth - Day 2 Micro Source: Urine Normal [facility] Comment on above: Performed By: #### C BCDIF, HCGQT, LIPASE, CMET, BHBA #### Unless otherwise noted, all testing performed by [place] [address] CLIA: [id number] Paper Reeler: Cristofer Perry M.D. HCG, Quantitativeon 02-02-20 18 HCG, Quantitative 4321 mIU/mL Normal [facility] Comment on above: Result Comment: HCG, Quant. Reference Range: [Units mIU/ml] Gestation Age Approx.HCG 0.2-1Week 5-50 1-2 Weeks 50-500 2-3 Weeks 100-5,000 3-4 Weeks 500-10,000 4-5 Weeks 1,000-50,000 6-8 Weeks 15,000-200,000 2-3 Months 10,000-100,000 Non- Females <5 Males <5 Performed By: #### C BCDIF, HCGQT, LIPASE, CMET, BHBA #### Unless otherwise noted, all testing performed by [place] [address] CLIA: [id number] Paper Reeler: Cristofer Perry M.D. Lipaseon 02-01-2018 Lipase enzyme act/vol 136 U/L Normal 73-393 [facility] Comment on above: Performed By: #### C BCDIF, HCGQT, LIPASE, CMET, BHBA #### Unless otherwise noted, all testing performed by [place] [address] CLIA: [id number] Paper Reeler: Cristofer Perry M.D. Urinalysis, Routineon 2017 Bacteria LM.HPF #/area (Urine sed) Rare Normal NS;RARE [facility] Comment on above: Performed By: #### U A #### Unless otherwise noted, all testing performed by [place] [address] CLIA: [id number] Paper Reeler: Cristofer Perry M.D. Bilirubin,Urine Negative Normal NEG;NEGATIVE [facility] Comment on above: Performed By: #### U A #### Unless otherwise noted, all testing performed by [place] [address] CLIA: [id number] Paper Reeler: Cristofer Perry M.D. Blood,Urine Negative Normal NEG;NEGATIVE [facility] Comment on above: Performed By: #### U A #### Unless otherwise noted, all testing performed by [address] [address] CLIA: [id number] Paper Reeler: Cristofer Perry M.D. Character Nom (U) Clear Normal [facility] Comment on above: Performed By: #### U A #### Unless otherwise noted, all testing performed by [place] [address] CLIA: [id number] Paper Reeler: Cristofer Perry M.D. Color Nom (U) Straw Normal [facility] Comment on above: Performed By: #### U A #### Unless otherwise noted, all testing performed by [place] [phone] CLIA: [id number] Paper Reeler: Cristofer Perry M.D. Glucose Ql (U) >= 500 High < 70 [facility] Comment on above: Performed By: #### U A #### Unless otherwise noted, all testing performed by [place] [phone] CLIA: [id number] Paper Reeler: Cristofer Perry M.D. Ketone,Urine Trace Abnormal NEG;NEGATIVE [facility] Comment on above: Performed By: #### U A #### Unless otherwise noted, all testing performed by [place] [address] CLIA: [id number] Paper Reeler: Cristofer Perry M.D. Leuk.Esterase,Urine Negative Normal Negative [facility] Comment on above: Performed By: #### U A #### Unless otherwise noted, all testing performed by [place] [address] CLIA: [id number] Paper Reeler: Cristofer Perry M.D. Nitrite,Urine Negative Normal NEG;NEGATIVE [facility] Comment on above: Performed By: #### U A #### Unless otherwise noted, all testing performed by [place] [address] CLIA: [id number] Paper Reeler: Cristofer Perry M.D. pH (U) 5.0 [pH] Normal 4.5-8.0 [facility] Comment on above: Performed By: #### U A #### Unless otherwise noted, all testing performed by [place] [address] CLIA: [id number] Paper Reeler: Cristofer Perry M.D. Protein mass conc (U) Negative Normal NEG;NEGATIVE [facility] Comment on above: Performed By: #### U A #### Unless otherwise noted, all testing performed by [place] [address] CLIA: [id number] Paper Reeler: Cristofer Perry M.D. RBC LM.HPF #/area (Urine sed) /[HPF] Normal 0-5 [facility] Comment on above: Performed By: #### U A #### Unless otherwise noted, all testing performed by [place] [address] CLIA: [id number] Paper Reeler: Cristofer Perry M.D. Specific [place],Urine 1.031 High 1.003-1.029 [facility] Comment on above: Performed By: #### U A #### Unless otherwise noted, all testing performed by [place] [address] CLIA: [id number] Paper Reeler: Cristofer Perry M.D. Squamous Epithelial < 1 Normal 0-40 [facility] Comment on above: Performed By: #### U A #### Unless otherwise noted, all testing performed by [place] [address] CLIA: [id number] Paper Reeler: Cristofer Perry M.D. Urobilinogen,Urine < 2.0 Normal <2 [facility] Comment on above: Performed By: #### U A #### Unless otherwise noted, all testing performed by [place] [address] CLIA: [id number] Paper Reeler: Cristofer Perry M.D. WBC,Urine 1 /HPF Normal 0-5 [facility] Comment on above: Performed By: #### U A #### Unless otherwise noted, all testing performed by [place] [address] CLIA: [id number] Paper Reeler: Cristofer Perry M.D. Venous Blood Gason 8 Allens Test N/A Normal [facility] Comment on above: Performed By: #### V BG #### Unless otherwise noted, all testing performed by [place] [address] CLIA: [id number] Paper Reeler: Cristofer Perry M.D. Base Excess, Venous -3.0 mmol/L Low -2.0-2.0 [facility] Comment on above: Performed By: #### V BG #### Unless otherwise noted, all testing performed by [place] [address] CLIA: [id number] Paper Reeler: Cristofer Perry M.D. Blood Gas Instrument ;ED Normal [facility] Comment on above: Performed By: #### V BG #### Unless otherwise noted, all testing performed by [place] [address] CLIA: [id number] Paper Reeler: Cristofer Perry M.D. Carboxyhemoglobin, Venous 2.3 Normal [facility] Comment on above: Result Comment: Subu rban Non-Smoker <1.5% of total Hgb Smoker 1.5 - 5.0 % of total Hgb Heavy Smoker 5.0 - 9.0 % of total Hgb Performed By: #### V BG #### Unless otherwise noted, all testing performed by [place] [address] CLIA: [id number] Paper Reeler: Cristofer Perry M.D. DeOxyhemoglobin (HHB), Venous < 2.4 Normal [facility] Comment on above: Result Comment: noti fied at Value below reportable range < 2.4 Performed By: #### V BG #### Unless otherwise noted, all testing performed by [place] [address] CLIA: [id number] Paper Reeler: Cristofer Perry M.D. Drawn By (Bld Gas) lab Normal [facility] Comment on above: Performed By: #### V BG #### Unless otherwise noted, all testing performed by [place] [address] CLIA: [id number] Paper Reeler: Cristofer Perry M.D. FIO2 21.0 % Normal 21-100 [facility] Comment on above: Performed By: #### V BG #### Unless otherwise noted, all testing performed by [place] [address] CLIA: [id number] Paper Reeler: Cristofer Perry M.D. Hematocrit Volume Fraction (Bld) 42.4 % Normal 36-46 [facility] Comment on above: Performed By: #### V BG #### Unless otherwise noted, all testing performed by [place] [address] CLIA: [id number] Paper Reeler: Cristofer Perry M.D. Hemoglobin mass conc (Bld) 95.8 % Normal 92-99 [facility] Comment on above: Performed By: #### V BG #### Unless otherwise noted, all testing performed by [place] [address] CLIA: [id number] Paper Reeler: Cristofer Perry M.D. Hemoglobin mass conc (Bld) 13.8 g/dL Normal 12.0-16.0 [facility] Comment on above: Performed By: #### V BG #### Unless otherwise noted, all testing performed by [place] [address] CLIA: [id number] Paper Reeler: Cristofer Perry M.D. Hemoglobin mass conc (Bld) 99.3 % High 40-70 [facility] Comment on above: Result Comment: Valu e above reference range Performed By: #### V BG #### Unless otherwise noted, all testing performed by [place] [address] CLIA: [id number] Paper Reeler: Cristofer Perry M.D. Methemoglobin, Venous 1.3 Normal < 2.0 [facility] Comment on above: Performed By: #### V BG #### Unless otherwise noted, all testing performed by [place] [place] [phone] CLIA: [id number] Paper Reeler: Cristofer Perry M.D. O2 CT, Venous 8.4 mmol/L Normal [facility] Comment on above: Performed By: #### V BG #### Unless otherwise noted, all testing performed by [place] [address] CLIA: [id number] Paper Reeler: Cristofer Perry M.D. O2 Device Room Air [facility] Comment on above: Performed By: #### V BG #### Unless otherwise noted, all testing performed by [place] [phone] CLIA: [id number] Paper Reeler: Cristofer Perry M.D. pCO2 (temp conv.), Venous 38.3 mm Hg Low [address] [place] [address] Comment on above: Performed By: #### V BG #### Unless otherwise noted, all testing performed by [place] [phone] CLIA: [id number] Paper Reeler: Cristofer Perry M.D. pCO2, Venous 38.3 mm Hg Low [address] [place] [address] Comment on above: Result Comment: Valu e below reference range Performed By: #### V BG #### Unless otherwise noted, all testing performed by [place] [address] CLIA: [id number] Paper Reeler: Cristofer Perry M.D. pH (temp conv.), Venous 7.367 Normal 7.32-7.42 [facility] Comment on above: Performed By: #### V BG #### Unless otherwise noted, all testing performed by [place] [phone] CLIA: [id number] Paper Reeler: Cristofer Perry M.D. pH, Venous 7.367 Normal 7.32-7.42 [facility] Comment on above: Performed By: #### V BG #### Unless otherwise noted, all testing performed by [place] [phone] CLIA: [id number] Paper Reeler: Cristofer Perry M.D. pO2(temp conv.), Venous 149 mm Hg High [address] [place] [address] Comment on above: Performed By: #### V BG #### Unless otherwise noted, all testing performed by [place] [phone] CLIA: [id number] Paper Reeler: Cristofer Perry M.D. pO2, Venous 149 mm Hg High [address] [place] [address] Comment on above: Performed By: #### V BG #### Unless otherwise noted, all testing performed by [place] [phone] CLIA: [id number] Paper Reeler: Cristofer Perry M.D. Site (Bld Gas) OTHER Normal [facility] Comment on above: Performed By: #### V BG #### Unless otherwise noted, all testing performed by [place] [phone] CLIA: [id number] Paper Reeler: Cristofer Perry M.D. VPO2 22.0 mmol/L Low 24-28 [facility] Comment on above: Performed By: #### V BG #### Unless otherwise noted, all testing performed by [place] [address] CLIA: [id number] Paper Reeler: Cristofer Perry M.D. iSTAT Pediatric Panelon - Chloride molar conc 105 mmol/L Normal 98-109 [facility] Comment on above: Performed By: #### E RPED #### Unless otherwise noted, all testing performed by [place] [address] CLIA: [id number] Paper Reeler: Cristofer Perry M.D. CO2 molar conc 22 mmol/L Low 23-32 [facility] Comment on above: Performed By: #### E RPED #### Unless otherwise noted, all testing performed by [place] [address] CLIA: [id number] Paper Reeler: Cristofer Perry M.D. Creatinine mass conc 0.4 mg/dL Normal 0.40-1.10 [facility] Comment on above: Performed By: #### E RPED #### Unless otherwise noted, all testing performed by [place] [address] CLIA: [id number] Paper Reeler: Cristofer Perry M.D. Glucose mass conc 259 mg/dL High 70-99 [facility] Comment on above: Performed By: #### E RPED #### Unless otherwise noted, all testing performed by [place] [address] CLIA: [id number] Paper Reeler: Cristofer Perry M.D. Hematocrit Volume Fraction (Bld) 38 % Normal 38.0-51.0 [facility] Comment on above: Performed By: #### E RPED #### Unless otherwise noted, all testing performed by [place] [address] CLIA: [id number] Paper Reeler: Cristofer Perry M.D. Hemoglobin mass conc (Bld) 12.9 g/dL Normal 12.0-17.0 [facility] Comment on above: Performed By: #### E RPED #### Unless otherwise noted, all testing performed by [place] [phone] CLIA: [id number] Paper Reeler: Cristofer Perry M.D. Ionized Calcm 1.14 mmol/L Normal 1.12-1.32 [facility] Comment on above: Performed By: #### E RPED #### Unless otherwise noted, all testing performed by [place] [phone] CLIA: [id number] Paper Reeler: Cristofer Perry M.D. Potassium molar conc 4.3 mmol/L Normal 3.5-4.9 [facility] Comment on above: Performed By: #### E RPED #### Unless otherwise noted, all testing performed by [place] [phone] CLIA: [id number] Paper Reeler: Cristofer Perry M.D. Sodium molar conc 137 mmol/L Normal 136-141 [facility] Comment on above: Performed By: #### E RPED #### Unless otherwise noted, all testing performed by [place] [address] CLIA: [id number] Paper Reeler: Cristofer Perry M.D. Urea nitrogen mass conc 9 mg/dL Normal 8-26 [facility] Comment on above: Performed By: #### E RPED #### Unless otherwise noted, all testing performed by [place] [address] CLIA: [id number] Paper Reeler: Cristofer Perry M.D. Chloride molar conc 102 mmol/L Normal 98-109 [facility] Comment on above: Performed By: #### E RPED #### Unless otherwise noted, all testing performed by [place] [address] CLIA: [id number] Paper Reeler: Cristofer Perry M.D. CO2 molar conc 21 mmol/L Low 23-32 [facility] Comment on above: Performed By: #### E RPED #### Unless otherwise noted, all testing performed by [place] [address] CLIA: [id number] Paper Reeler: Cristofer Perry M.D. Creatinine mass conc 0.4 mg/dL Normal 0.40-1.10 [facility] Comment on above: Performed By: #### E RPED #### Unless otherwise noted, all testing performed by [place] [address] CLIA: [id number] Paper Reeler: Cristofer Perry M.D. Glucose mass conc 350 mg/dL High 70-99 [facility] Comment on above: Performed By: #### E RPED #### Unless otherwise noted, all testing performed by [place] [address] CLIA: [id number] Paper Reeler: Cristofer Perry M.D. Hematocrit Volume Fraction (Bld) 39 % Normal 38.0-51.0 [facility] Comment on above: Performed By: #### E RPED #### Unless otherwise noted, all testing performed by [place] [address] CLIA: [id number] Paper Reeler: Cristofer Perry M.D. Hemoglobin mass conc (Bld) 13.3 g/dL Normal 12.0-17.0 [facility] Comment on above: Performed By: #### E RPED #### Unless otherwise noted, all testing performed by [place] [phone] CLIA: [id number] Paper Reeler: Cristofer Perry M.D. Ionized Calcm 1.19 mmol/L Normal 1.12-1.32 [facility] Comment on above: Performed By: #### E RPED #### Unless otherwise noted, all testing performed by [place] [phone] CLIA: [id number] Paper Reeler: Cristofer Perry M.D. Potassium molar conc 3.8 mmol/L Normal 3.5-4.9 [facility] Comment on above: Performed By: #### E RPED #### Unless otherwise noted, all testing performed by [place] [address] CLIA: [id number] Paper Reeler: Cristofer Perry M.D. Sodium molar conc 137 mmol/L Normal 136-141 [facility] Comment on above: Performed By: #### E RPED #### Unless otherwise noted, all testing performed by [place] [address] CLIA: [id number] Paper Reeler: Cristofer Perry M.D. Urea nitrogen mass conc 10 mg/dL Normal 8-26 [facility] Comment on above: Performed By: #### E RPED #### Unless otherwise noted, all testing performed by [facility] [address] [place] [address] CLIA: [id number] Paper Reeler: Cristofer Perry M.D. EMERGENCY DEPARTMENTon 12-14 [place] [address] HEALTH INFORMATION MANAGEMENT EMERGENCY DEPARTMENT : [id number] Signed Patient: MELISSA KAUR Acct:[id number] MRUN: [id number] : 1995 Sex: F Loc: ED ADM [...] Abuse: No Hx Suspected Abuse: No - [place]/Gender ID What is your current Gender Identity? [...] intact - Skin Skin Color: Present: Normal, Slaughter Skin exam: Present: warm, dry - Vital [...] sl.cloudy (Clear) Urine pH 5 Ur Specific [place] 1.020 (1.015-1.025) Urine Protein Negative (Negative) Urine [...] Provider: 12/14/17 18:55 - Dictation Amendments/Documentatio n: [place] Document Only Electronically Generated By: SARAI PAULA MD Generated Date/Time: 12/14/171934 Electronically Signed By: SARAI PAULA MD Signed Date/Time 12/14/172023 Co Signed Electronically By: Co Signed Date/Time: CC: MILLY SINCLAIR [facility]2017 LURNC Urine Culture, Routi ne = Final reportPerformed at: [facility] [employer] [id number] Director: Korey Corral PhD, Phone: [phone] REPORT: Previous result was SEE BELOW at [...] SPiperacillin/Tazobacta m STetracycline STobramycin STrimethoprim/Sulfa SPerformed at: [facility] [place] [id number] [place], [place] [id number] Director: Korey Corral PhD, Phone: [phone] Urine Culture = urine, void Normal [facility] Comment on above: Performed By: #### M IC2 ####[address] [phone]) (Urine)on 12-15-19 18 HCG ( test) Ql (U) Negative Normal Negative [facility] Comment on above: Performed By: #### P REGU ####[address] [phone] UA w/Micrscopic-reflex cultu reon 12-14-2017 Appearance sl.cloudy Normal Clear [facility] Comment on above: Performed By: #### U AMRC ####[address] [address] Bacteria 2+ /hpf Normal 0 - 1+ [facility] Comment on above: Performed By: #### U AMRC ####[address] [address] Bilirubin Negative Normal Negative [facility] Comment on above: Performed By: #### U AMRC ####[address] [address] Blood 10 Abnormal Negative [facility] Comment on above: Performed By: #### U AMRC ####[address] [address] Casts MARKET RESEARCH ASSOCIATE Normal [facility] Comment on above: Performed By: #### U AMRC ####[address] [address] Casts. MARKET RESEARCH ASSOCIATE Normal [facility] Comment on above: Performed By: #### U AMRC ####[address] [address] Color yellow Normal Yellow [facility] Comment on above: Performed By: #### U AMRC ####[address] [address] Crystals MARKET RESEARCH ASSOCIATE Normal [facility] Comment on above: Performed By: #### U AMRC ####[address] [address] Crystals. MARKET RESEARCH ASSOCIATE Normal [facility] Comment on above: Performed By: #### U AMRC ####[address] [address] Epithelial Cells >15 Normal 0 - 6 [facility] Comment on above: Performed By: #### U AMRC ####[address] [address] Glucose 1000 Abnormal Negative [facility] Comment on above: Performed By: #### U AMRC ####[address] [address] Ketones Trace Normal Negative [facility] Comment on above: Performed By: #### U AMRC ####[address] [address] Leukocytes Esterase Trace Abnormal Negative [facility] Comment on above: Performed By: #### U AMRC ####[address] [address] Mucus MARKET RESEARCH ASSOCIATE Normal [facility] Comment on above: Performed By: #### U AMRC ####[address] [address] Nitrites Negative Normal Negative [facility] Comment on above: Performed By: #### U AMRC ####[address] [address] pH 5 Normal [facility] Comment on above: Performed By: #### U AMRC ####[address] [address] Protein Negative Normal Negative [facility] Comment on above: Performed By: #### U AMRC ####[address] [address] Specific [place] 1.020 Normal 1.015-1.025 [facility] Comment on above: Performed By: #### U AMRC ####[address] [address] Trichomonas MARKET RESEARCH ASSOCIATE Normal [facility] Comment on above: Performed By: #### U AMRC ####[address] [address] Urine, erythrocytes 2-5 Normal 0 - 2 [facility] Comment on above: Performed By: #### U AMRC ####[address] [address] Urobilinogen NORMAL Normal Normal-1.0 [facility] Comment on above: Performed By: #### U AMRC ####[address] [address] WBC 2-5 Normal 0 - 6 [facility] Comment on above: Performed By: #### U AMRC ####[address] [address] Yeast MARKET RESEARCH ASSOCIATE Normal [facility] Comment on above: Performed By: #### U AMRC ####[address] [address] Other MARKET RESEARCH ASSOCIATE Normal [facility] Comment on above: Performed By: #### U AMRC ####[address] [address] Basic Metabolic Panelon - Anion gap 10.0 mmol/L Normal 6.0-18.0 [facility] Comment on above: Result Comment: PLEA SE NOTE:The calculated Anion Gap(AGAP) does not include Potassium. Performed By: #### 6 9405-9, 14265-0o7, 44460-1 ####[facility], [address] [place], [place]. Calcium 9.2 mg/dL Normal 8.9-10.3 [facility] Comment on above: Performed By: #### 6 9405-9, 24579-3s0, 68613-0 ####[facility], [address] [facility] [place] Chloride 103 mmol/L Normal 98-107 [facility] Comment on above: Performed By: #### 6 9405-9, 70821-4l1, 70445-8 ####[facility], [address] [facility] [place] CO2 26 mmol/L Normal 22-32 [facility] Comment on above: Performed By: #### 6 9405-9, 01031-4x7, 76250-7 ####[facility], [address] [facility] [place]. Creatinine 0.82 mg/dL Normal 0.66-1.30 [facility] Comment on above: Performed By: #### 6 9405-9, 97376-2n5, 46692-0 ####[facility], [address], [place]. Glucose mass conc 178 mg/dL High 70-[address] [facility] Comment on above: Performed By: #### 6 9405-9, 40162-8u9, 82152-9 ####[facility], [address] [facility] [place]. Potassium molar conc 3.5 mmol/L Low 3.6-5.1 [facility] Comment on above: Performed By: #### 6 9405-9, 09476-4f9, 49255-3 ####[facility], [address] [facility] Sodium 139 mmol/L Normal 136-145 [facility] Comment on above: Performed By: #### 6 9405-9, 03874-1f7, 24494-2 ####[facility], [address] [facility]. Urea nitrogen 16 mg/dL Normal 8-20 [facility] Comment on above: Performed By: #### 6 9405-9, 79714-2n9, 75902-2 ####[facility], [address] [facility] CBC with Differentialon - Basophils Auto #/vol (Bld) 0.3 % Normal 0.0-2.0 [facility] Comment on above: Performed By: #### 5 7021-8 ####[facility], [address], [place]. Basophils Auto #/vol (Bld) 0.00 thou/mcL Normal 0.00-0.20 [facility] Comment on above: Performed By: #### 5 7021-8 ####[facility], [address] [place], [place]. Eosinophils 0.10 thou/mcL Normal 0.00-0.70 [facility] Comment on above: Performed By: #### 5 7021-8 ####[facility], [address]. Eosinophils/100 leukocytes 1.3 % Normal 0.0-7.0 [facility] Comment on above: Performed By: #### 5 7021-8 ####[facility], [address] [facility] [facility] [place], [place]. Erythrocyte distribution width Auto Ratio (RBC) 13.8 % Normal 11.0-14.8 [facility] Comment on above: Performed By: #### 5 7021-8 ####[facility], [address] [facility] [facility] [place], [place]. Erythrocytes (RBC) 5.24 million/mcL High 3.80-5.10 [facility] Comment on above: Performed By: #### 5 7021-8 ####[facility], [address], [place], [place]. Hematocrit (HCT) 41.0 % Normal 35.0-45.0 [facility] Comment on above: Performed By: #### 5 7021-8 ####[facility], [address] [place], [place]. Hemoglobin mass conc (Bld) 14.0 g/dL Normal 12.0-16.0 [facility] Comment on above: Performed By: #### 5 7021-8 ####[facility], [address] [place], [place]. Lymphocytes 2.60 thou/mcL Normal 1.00-4.80 [facility] Comment on above: Performed By: #### 5 7021-8 ####[facility], [address] [place], [place]. Lymphocytes/100 leukocytes 31.2 % Normal 22.0-44.0 [facility] Comment on above: Performed By: #### 5 7021-8 ####[facility], [address] [place], [place]. MCH 26.8 Picograms Low 27.0-34.0 [facility] Comment on above: Performed By: #### 5 7021-8 ####[facility], [address], [place]. MCHC mass conc (RBC) 34.2 g/dL Normal 32.0-36.0 [facility] Comment on above: Performed By: #### 5 7021-8 ####[facility], [address] [place], [place]. MCV 78.3 fL Low 80.0-97.0 [facility] Comment on above: Performed By: #### 5 7021-8 ####[facility], [address] [place], [place]. Monocytes 0.50 thou/mcL Normal 0.00-0.90 [facility] Comment on above: Performed By: #### 5 7021-8 ####[facility], [address] [place], [place]. Monocytes/100 leukocytes 6.0 % Normal 0.0-12.0 [facility] Comment on above: Performed By: #### 5 7021-8 ####[facility], [address] [place], [place]. Neutrophils 5.20 thou/mcL Normal 1.80-7.70 [facility] Comment on above: Performed By: #### 5 7021-8 ####[facility], [address] [place], [place]. Neutrophils/100 WBC Auto (Bld) 61.2 % Normal 40.0-70.0 [facility] Comment on above: Performed By: #### 5 7021-8 ####[facility], [address] [place], [place]. Platelet mean volume (PMV) 8.2 fL Normal 6.2-12.1 [facility] Comment on above: Performed By: #### 5 7021-8 ####[facility], [address] [facility] [place], [place]. Platelets 265 thou/mcL Normal 142-424 [facility] Comment on above: Performed By: #### 5 7021-8 ####[facility], [address] [facility]. WBC (Leukocytes) 8.4 thou/mcL Normal 4.6-10.2 [facility] Comment on above: Performed By: #### 5 7021-8 ####[facility], [address] [place], [place]. Depart Summaryon 11-30-2017 Depart Summary EMERGENCY DEPARTMENT DISCHARGE SUMMARYPATIENT NAME:MELISSA BYRNE MRN: [id number]: 22 Years SEX: Female PHONE:[phone]: 11/29/2017 7:40 PM : 1995 ATTENDING PHYSICIAN:Christopher Gracia MD PCP: Physician, PCP Unknown CHIEF COMPLAINT: pelvic pain Allergies NKAProblems Active Hypertension Mood disorder Diabetes DISCHARGE DIAGNOSIS: Ovarian cyst; Pelvic pain DISCHARGE INSTRUCTIONS: '- Ovarian Cyst (D9507) ED PHYSICIAN DOCUMENTATION: History of Present Illness?I introduced myself as a Physician Wood Treating Inspector. Attending physician: Dr. Morales have performed a [...] normal excursion. No stridor or droolingCARDIAC: RRRSKIN: Slaughter, warm, dryABD: Diffuse tenderness to palpation over [...] Result(s): Date Order Results 11/29/2017 20:14 Specific [place] Urine POCT N 1.030 11/29/2017 20:14 pH Urine POCT N 5 11/29/2017 20:17 Appearance Urine A HAZY 11/29/2017 20:17 Specific [place] Urine H 1.036 11/29/2017 20:17 Glucose Urine [...] adnexal mass.Immediate final results were provided per protocol.[place] thanks you for the opportunity to care for your patient. Workstation ID: [id number] FOLLOW UP:FOLLOW-UP APPOINTMENTS: Provider: Specialty: Address: Date: Follow up with primary care provider 3 to 4 days Provider: Specialty: Address: Date: Return to Emergency Department Follow-up as needed Normal [facility] ED Ashleigh Chan 11-30-2017 ED [address], [place] [address] [facility]charge Instructions MELISSA BYRNE , Please [...] [facility] Emer[facility] Name MELISSA BYRNE MRN (COL)-[id number] PLEASE READ THE FOLLOWING REGARDING YOUR MEDICATIONS [...] doses are changed, or new medications (including iyne-kbd-owqlzpn products) are added. If you have any [...] TAKE UNTIL YOU TALK TO YOUR DOCTORNone [place] [address] [facility] Department Discharge Instructions Name: MELISSA BYRNE Current Date: 11/29/2017 23:26:24 : 1995 12:00 PM Primary Physician: Physician, PCP Unknown We would like to thank you for choosing [facility] for your emergency medical needs. We examined [...] health of those around you. Call the [employer] at 1-768-ITTZ-[place] or the [employer] at 0-921-EME-9817 for more information.High blood pressure: Your screening blood pressure today was 114 mm Hg / . Hypertension (high blood pressure) is blood pressure over 120/80. People with hypertension should contact their primary care provider within 30 days to follow up. Check your patient portal for additional blood pressure information.Immunizatio ns:Immunization is a way to protect against deadly infections. Discuss this with your child's cte teacher, or Public Health Department. Your family practice doctor can determine if you need pneumonia or flu vaccine. The [facility] Department can be reached at .Domestic [...] suicide hotline, anytime day or night, at 7-675-839-VDRO. Pharmacy Information:Below is a list of 24 hour pharmacies that we are aware of. We suggest that you call the specific pharmacy for their hours before traveling to a location. Hours may vary on holidays. [facility] [address] [place] [address] [phone] [address] [phone] [place] [address] [phone] [place] [address] [phone] [place] [address] [phone] [place], [place] [phone] [place] [address] [phone] Take all medications as directed. If you need prescription assistance, contact the following agencies:?? Partnership for Prescription Assistance at or www.pparx.org?? [place] at or www.JibJabstrx.org?? [employer] is a site with many valuable coupons [...] cyst, if your caregiver is not a campus receptionist.?? Get your yearly and recommended pelvic examinations [...] 05/26/2006 Document Re-Released: 05/14/2010ExitCare?? Patient Information ??2011 [employer].VIRUSES OR BACTERIA: WHAT'S GOT YOU SICK?Antibiotics only [...] education materials, prescriptions and follow-up instructions: I, JOANNE BYRNENDRIA AMRITA, have received the above patient education materials/instructions and have verbalized understanding: Date Time Patien t Signature Date Time Provid er Signature Normal [facility] ED Physician Noteson 018 ED Physician [...] this documentation, there is a possibility of azmxq-e-pgse errors inherent to this technology that may [...] Emergency November 29, 2017 20:32 Ordered Normal [facility] ED Physician Notes PDF Normal [facility] GFRaaon 11-30-2017 eGFR (black) mL/min/{1.73_m2} Normal [facility] Comment on above: Result Comment: The MDRD equation has not been validated for those over 70 years, women, patients with serious co-morbid conditions, or with extremes of bodysize, muscle mass of nutritional status. Performed By: #### 6 9405-9, 61041-4o0, 53798-6 ####[facility], [address] [place] [address]. GFRbbon 11-30-2017 eGFR (non-black) mL/min/{1.73_m2} Normal [facility] Comment on above: Performed By: #### 6 9405-9, 71614-1u4, 92276-8 ####[facility], [address] [place] [address]. Culture Urine + Susceptibili tyon 11-29-2017 Urine culture, bacteria [facility] MicrobiologyPROCEDURE: Culture Urine + SusceptibilitySOURCE: Urine BODY [...] Resistant >=8Nitrofurantoin Susceptible <=16Trimethoprim/ Susceptible <=20Sulfamethoxazole Normal [facility] Comment on above: Performed By: #### 6 30-4 ####[facility] [address], [place] ED Physician Noteson 018 ED Physician Notes Chief Complaint pelv ic painED Assigned Provider/Time Time Seen: Davonte Rebolledo / 11/29/2017 20:07History of Present Illness I introduced myself as a Physician Wood Treating Inspector. Attending physician: Dr. Shannon I have performed [...] No stridor or drooling CARDIAC: RRR SKIN: Slaughter, warm, dry ABD: Diffuse tenderness to palpation [...] Use Tobacco No qualifying data available. Normal [facility] ED Physician Notes PDF Normal [facility] [place] Duplex Abd/Pelvis Retrope r Completeon [...] adnexal mass.Immediate final results were provided per protocol.[place] thanks you for the opportunity to care for your patient. Workstation ID: [id number] - [id number] FINAL REPORT Dictated By: Amado Gilman MD 11/29/2017 21:34Assigned Physician: Amado Gilman MDReviewed and Electronically Signed By: Amado Gilman MD 11/29/2017 21:39Transcribed by: TAMI 11/29/2017 21:34Technologist: RANI Normal [facility] US Pelvis Non-OB Completeon 11-29-2017 US [...] adnexal mass.Immediate final results were provided per protocol.[place] thanks you for the opportunity to care for your patient. Workstation ID: [id number] - [id number] FINAL REPORT Dictated By: Amado Gilman MD 11/29/2017 21:34Assigned Physician: Amado Gilman MDReviewed and Electronically Signed By: Amado Gliman MD 11/29/2017 21:39Transcribed by: TAMI 11/29/2017 21:34Technologist: RANI [facility] US Transvaginalon 11-29-2017 US Transvaginal Study: [...] adnexal mass.Immediate final results were provided per protocol.[place] thanks you for the opportunity to care for your patient. Workstation ID: [id number] - [id number] FINAL REPORT Dictated By: Amado Gilman MD 11/29/2017 21:34Assigned Physician: Amado Gilman MDReviewed and Electronically Signed By: Amado Gilman MD 11/29/2017 21:39Transcribed by: TAMI 11/29/2017 21:34Technologist: NMBipin Normal [facility] Urinalysis Microscopicon Urine, bacteria in sediment RARE Abnormal NONE/HPF [facility] Comment on above: Performed By: #### 5 8077-9, 38327-9 ####[facility], [address] [place], [place]. Urine, erythrocytes in sediment by area 1 /[HPF] Normal 0-5 [facility] Comment on above: Performed By: #### 5 8077-9, 58147-6 ####[facility], [address] [place], [place]. Urine, leukocytes in sedmiment 1 /[HPF] Normal 0-5 [facility] Comment on above: Performed By: #### 5 8077-9, 14808-6 ####[facility], [address], [place]. Urine, mucus presence in sediment RARE Abnormal NONE/LPF [facility] Comment on above: Performed By: #### 5 8077-9, 72748-3 ####[facility], [address], [place]. Urine, squamous cells in sediment MANY Abnormal FEW/LPF [facility] Comment on above: Performed By: #### 5 8077-9, 19442-0 ####[facility], [address] [place]. Urinalysis with Microscopic Automatic with Reflexon 11-29-2017 Bilirubin Urine Negative Normal NEGATIVE [facility] Comment on above: Performed By: #### 5 8077-9, 35713-5 ####[facility], [address], [place]. Nitrite Urine Positive Abnormal NEGATIVE [facility] Comment on above: Performed By: #### 5 8077-9, 39397-2 ####[facility], [address], [place]. Urine, appearance HAZY Abnormal CLEAR [facility] Comment on above: Performed By: #### 5 8077-9, 45686-6 ####[facility], [address], [place]. Urine, color YELLOW Normal YELLOW [facility] Comment on above: Performed By: #### 5 8077-9, 24868-4 ####[facility], [address], [place]. Urine, glucose presence 500MG/DL Abnormal NORMAL [facility] Comment on above: Performed By: #### 5 8077-9, 51145-4 ####[facility], [address] [place], [place]. Urine, hemoglobin presence Negative Normal NEGATIVE [facility] Comment on above: Performed By: #### 5 8077-9, 64928-8 ####[facility], [address] Urine, ketones presence 5MG/DL Abnormal NEGATIVE [facility] Comment on above: Performed By: #### 5 8077-9, 77285-5 ####[facility], [address] [place], [place]. Urine, leukocyte esterase presence Negative Normal NEGATIVE [facility] Comment on above: Performed By: #### 5 8077-9, 40412-1 ####[facility], [address] [place], [place]. Urine, pH 5.0 [pH] Normal 4.5-8.0 [facility] Comment on above: Performed By: #### 5 8077-9, 27165-6 ####[facility], [address] [place], [place]. Urine, protein Negative Normal NEGATIVE [facility] Comment on above: Performed By: #### 5 8077-9, 80509-7 ####[facility], [address] [place], [place]. Urine, specific gravity 1.036 High 1.002-1.030 [facility] Comment on above: Performed By: #### 5 8077-9, 24453-7 ####[facility], [address] [place], [place]. Urobilinogen Urine NORMAL Normal NORMAL [facility] Comment on above: Performed By: #### 5 8077-9, 45491-0 ####[facility], [address] [place], [place]. [place] US Breast Uni Limited LTo n 11-20-2017 [place] US Breast Uni Limited LT DATE OF [...] follow-up for the patient's symptoms.BI-RADS Code 1-N: Negative.[place] thanks you for the opportunity to care for your patient. Workstation ID: [id number] - [id number] FINAL REPORT Dictated By: Mihir Real MD 11/20/2017 10:50Assigned Physician: Mihir Real MD AReviewed and Electronically Signed By: Mihir Real MD 11/20/2017 10:53Transcribed by: [facility] 11/20/2017 10:50Technologist: LJE Normal [facility] Antibody Screen Interpretati onon 11-15-2017 Interpretation and review of laboratory results Negative Normal NEGATIVE [facility] Comment on above: Performed By: #### 6 9405-9, 71694-0o1, 03956-7 ####[facility], [address] [place], [place]. Basic Metabolic Panelon Anion gap 7.0 mmol/L Normal 6.0-18.0 [facility] Comment on above: Result Comment: CARSON BARKER NOTE:The calculated Anion Gap(AGAP) does not include Potassium. Performed By: #### 6 9405-9, 10344-6f6, 61143-6 ####[facility], [address], [place]. Calcium 10.1 mg/dL Normal 8.9-10.3 [facility] Comment on above: Performed By: #### 6 9405-9, 08768-2b2, 84559-0 ####[facility], [address], [place]. Chloride 103 mmol/L Normal 98-107 [facility] Comment on above: Performed By: #### 6 9405-9, 52303-8d4, 13368-4 ####[facility], [address], [place]. CO2 28 mmol/L Normal 22-32 [facility] Comment on above: Performed By: #### 6 9405-9, 25839-0v6, 36855-1 ####[facility], [address] [place], [place]. Creatinine 0.53 mg/dL Low 0.66-1.30 [facility] Comment on above: Performed By: #### 6 9405-9, 75219-3x9, 44194-4 ####[facility], [address], [place]. Glucose mass conc 215 mg/dL High 70-[address] [facility] Comment on above: Performed By: #### 6 9405-9, 17388-4x1, 12488-6 ####[facility], [address], [place]. Potassium molar conc 3.9 mmol/L Normal 3.6-5.1 [facility] Comment on above: Performed By: #### 6 9405-9, 34581-5r7, 06601-8 ####[facility], [address] [facility], [place], [place]. Sodium 138 mmol/L Normal 136-145 [facility] Comment on above: Performed By: #### 6 9405-9, 85266-1b2, 01929-5 ####[facility], [address] [place], [place]. Urea nitrogen 10 mg/dL Normal 8-20 [facility] Comment on above: Performed By: #### 6 9405-9, 16417-0y8, 76897-6 ####[facility], [address] [place], [place]. Blood Type ABO and Rh(D)on 0 11-15-2017 ABO+Rh group Positive Normal [facility] Comment on above: Performed By: #### 6 9405-9, 59897-8n8, 12783-7 ####[facility], [address] [facility] [place] CBC with Differentialon 06-0 Basophils Auto #/vol (Bld) 0.10 thou/mcL Normal 0.00-0.20 [facility] Comment on above: Performed By: #### 6 9405-9, 43822-0z4, 30050-6 ####[facility], [address] [place], [place]. Basophils Auto #/vol (Bld) 0.6 % Normal 0.0-2.0 [facility] Comment on above: Performed By: #### 6 9405-9, 05499-5b6, 77451-7 ####[facility], [address] [place], [place]. Eosinophils 0.10 thou/mcL Normal 0.00-0.70 [facility] Comment on above: Performed By: #### 6 9405-9, 69112-4m1, 58693-8 ####[facility], [address] [facility] [place]. Eosinophils/100 leukocytes 0.9 % Normal 0.0-7.0 [facility] Comment on above: Performed By: #### 6 9405-9, 16932-2v8, 91401-9 ####[facility], [address] [place], [place]. Erythrocyte distribution width Auto Ratio (RBC) 14.1 % Normal 11.0-14.8 [facility] Comment on above: Performed By: #### 6 9405-9, 01052-1a2, 98305-2 ####[facility], [address] [place], [place]. Erythrocytes (RBC) 5.51 million/mcL High 3.80-5.10 [facility] Comment on above: Performed By: #### 6 9405-9, 30535-0x3, 25606-5 ####[facility], [address] [place], [place]. Hematocrit (HCT) 43.1 % Normal 35.0-45.0 [facility] Comment on above: Performed By: #### 6 9405-9, 07841-8e2, 70115-1 ####[facility], [address] [place], [place]. Hemoglobin mass conc (Bld) 15.0 g/dL Normal 12.0-16.0 [facility] Comment on above: Performed By: #### 6 9405-9, 72258-4k5, 78069-2 ####[facility], [address] [place], [place]. Lymphocytes 2.20 thou/mcL Normal 1.00-4.80 [facility] Comment on above: Performed By: #### 6 9405-9, 51137-7d3, 20228-0 ####[facility], [address] [place], [place]. Lymphocytes/100 leukocytes 25.7 % Normal 22.0-44.0 [facility] Comment on above: Performed By: #### 6 9405-9, 76760-9f8, 60640-0 ####[facility], [address] [place], [place]. MCH 27.2 Picograms Normal 27.0-34.0 [facility] Comment on above: Performed By: #### 6 9405-9, 73363-8l6, 49961-5 ####[facility], [address] [place], [place]. MCHC mass conc (RBC) 34.8 g/dL Normal 32.0-36.0 [facility] Comment on above: Performed By: #### 6 9405-9, 29749-7i6, 41557-5 ####[facility], [address] [place], [place]. MCV 78.1 fL Low 80.0-97.0 [facility] Comment on above: Performed By: #### 6 9405-9, 71494-6d2, 48176-1 ####[facility], [address] [place], [place]. Monocytes 0.40 thou/mcL Normal 0.00-0.90 [facility] Comment on above: Performed By: #### 6 9405-9, 30111-5i6, 89089-4 ####[facility], [address] [place], [place]. Monocytes/100 leukocytes 5.1 % Normal 0.0-12.0 [facility] Comment on above: Performed By: #### 6 9405-9, 40066-1c4, 88073-4 ####[facility], [address] [place], [place]. Neutrophils 5.70 thou/mcL Normal 1.80-7.70 [facility] Comment on above: Performed By: #### 6 9405-9, 61611-8w4, 79028-4 ####[facility], [address] [place], [place]. Neutrophils/100 WBC Auto (Bld) 67.7 % Normal 40.0-70.0 [facility] Comment on above: Performed By: #### 6 9405-9, 33742-0j7, 12082-8 ####[facility], [address] [place], [place]. Platelet mean volume (PMV) 7.8 fL Normal 6.2-12.1 [facility] Comment on above: Performed By: #### 6 9405-9, 85957-9u8, 42721-7 ####[facility], [address] [place], [place]. Platelets 264 thou/mcL Normal 142-424 [facility] Comment on above: Performed By: #### 6 9405-9, 05722-8o8, 33604-9 ####[facility], [address] [place], [place]. WBC (Leukocytes) 8.5 thou/mcL Normal 4.6-10.2 [facility] Comment on above: Performed By: #### 6 9405-9, 52888-9h5, 61344-0 ####[facility], [address] [place] [address]. 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 I informed the patient of attending physician [...] ? ? O2 Flow ? ? ?O2 Jgbaezng40/09/18 16:00?-?-?- ?-/-?-? 100? -?Room air11/15/17 18:23?-?-?1 6?124/ [...] to be discharged home and follow-up with WELDING MACHINE OPERATOR [facility]C or PCP. I believe the abdominal pain is likely due to IUD removal 3 days ago.? I discussed this case my attending physician, Dr. Jama, who agrees with workup and disposition.? I have reviewed assessment and plan with patient who verbalizes understanding. Patient will be discharged home and follow-up with OB-OPERATOR [facility] or PCP?provider in 72 hours. Patient is stable and agreeable to plan for discharge home.]? DISCHARGE PLAN:Condition: [Stable]. ?Disposition: [Medically cleared],? Discharged ?Date/Time:?[11-15-2017 18:58 ]?to Home?Prescriptions: NONE ?[ ]Limitations: NONEPatient Education:? Menorrhagia, Tnuv-mw-Yyjw? [ ]Follow up with:? Provider: ?Verona Hilliard MD?? ?Specialty:??Family Practice?? ?Address:??[address] [address] ? ?[phone] ? (1)?? ?Date:??1 to 2 days??? Comment: [...] Provider: Specialty: Address: Date: Verona Hilliard MD [address] [phone] (1) 1 to 2 days Comment: Call for an Appointment Provider: Specialty: Address: Date: Return to Emergency Department Follow-up as needed Comment: Reasons to return to the ED discussed with patient such as fever >101 degrees F, intractable nausea/vomiting, increasing pain, increased bleeding, lack of improvement of symptoms, new symptoms. Normal [facility] ED Pat [facility] 11-15-2017 ED [place] [id number] Emergency Department Discharge Instructions MELISSA BYRNE , Please provide this information to your Primary Care/Specialist Name : MELISSA BYRNE Current Date : 11/15/2017 19:17:32DOB : 1995 12:00 PM Primary Care Physician: Verona Hilliard MD Diagnosis : Menorrhagia Follow-Up Instructions:MELISSA BYRNE has been given these follow-up instructions: FOLLOW-UP APPOINTMENTS: Provider: Specialty: Address: Date: Verona Hilliard MD Family [address] [phone] (1) 1 to 2 days Comment: Call [...] Ordered Procedure(s) and Patient Education(s) : Menorrhagia, Pbgv-sn-Skbs EMERGENCY SERVICES MEDICATION LISTLista de Medicaciones de los Servicios de Emergencia Name MELISSA BYRNE PLEASE READ THE FOLLOWING REGARDING YOUR MEDICATIONS [...] doses are changed, or new medications (including qwia-tzt-yhzsxyf products) are added. If you have any [...] TAKE UNTIL YOU TALK TO YOUR DOCTORNone [place] [id number] Emergency Department Discharge Instructions Name: MELISSA BYRNE Current Date: 11/15/2017 19:17:32 : 1995 12:00 PM Primary Physician: Verona Hilliard MD We would like to thank you for choosing [facility] for your emergency medical needs. We examined [...] health of those around you. Call the [employer] at 5-926-DJRQ-USA or the [employer] at 1-539-KOE-9247 for more information.High blood pressure: Your screening blood pressure today was 124 mm Hg / . Hypertension (high blood pressure) is blood pressure over 120/80. People with hypertension should contact their primary care provider within 30 days to follow up. Check your patient portal for additional blood pressure information.Immunizatio ns:Immunization is a way to protect against deadly infections. Discuss this with your child's cte teacher, or Public Health Department. Your family practice doctor can determine if you need pneumonia or flu vaccine. The [facility] Department can be reached at .Domestic [...] suicide hotline, anytime day or night, at 9-580-414-SYRS. Pharmacy Information:Below is a list of 24 hour pharmacies that we are aware of. We suggest that you call the specific pharmacy for their hours before traveling to a location. Hours may vary on holidays. [facility] Pharm[facility] [address] [address] [phone] [place] [address] [phone] [place] [address] [phone] [address] [phone] [address] [phone] [address] [phone] [place] [address] [phone] Take all medications as directed. If you need prescription assistance, contact the following agencies:?? Partnership for Prescription Assistance at or www.BeeTV.org?? [facility] at or www.JibJabstrx.org?? www.Scryer is a site with many valuable coupons [...] Document Reviewed: 11/25/2013[employer]isca Interactive Patient Education ?2016 [employer]><><><><><><><><>< ><><><><><><><><><><><> <><><><> Patient Visit Summary Signature MELISSA BYRNE has been given the following list of patient education materials, prescriptions and follow-up instructions: CHAVEZ Cox ALEXANDRIA JUSTINE, have received the above patient education materials/instructions and have verbalized understanding: Date Time Patien t Signature Date Time Provid er Signature Normal [facility] ED Physician Noteson 018 ED Physician [...] 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 I informed the patient of attending physician [...] to be discharged home and follow-up with WELDING MACHINE OPERATOR ARC or PCP. I believe the abdominal pain is likely due to IUD removal 3 days ago. I discussed this case my attending physician, Dr. Jama, who agrees with workup and disposition. I have reviewed assessment and plan with patient who verbalizes understanding. Patient will be discharged home and follow-up with OB-OPERATOR [facility] LOCATING [facility]AR or PCP provider in 72 hours. Patient is stable and agreeable to plan for discharge home.] DISCHARGE PLAN: Condition: [Stable]. Disposition: [Medically cleared], Discharged Date/Time: [11-15-2017 18:58 ] toRector Prescriptions:NONE [ ] Limitations: NONE Patient Education: Menorrhagia, Pwkr-fq-Fzxn [ ] Follow up with: Provider: Verona Hilliard MD Specialty: Family Practice Address: [address] [place] [phone] (1) Date: 1 to 2 days [...] Laboratory POC Urine Test (CO) Priti [facility] November 15, 2017 16:30 Completed CBC with Differential Physician, Emergency November 15, 2017 16:49 Completed Basic Metabolic Panel Physician, Emergency November 15, 2017 16:49 Completed HCG Quantitative Physician, Emergency November 15, 2017 16:49 Completed GFRAF Physician, Emergency November 15, 2017 17:09 Completed GFRNAF Physician, Emergency November 15, 2017 17:09 Completed Urinalysis with Reflex Microscopic [facility] November 15, 2017 18:23 Completed U MICRO [facility] November 15, 2017 18:42 Completed Type and Screen Diana Mo November 15, 2017 16:49 Ordered Normal [facility] ED Physician Notes PDF Normal [facility] GFRaaon 11-15-2017 eGFR (black) mL/min/{1.73_m2} Normal [facility] Comment on above: Result Comment: The MDRD equation has not been validated for those over 70 years, women, patients with serious co-morbid conditions, or with extremes of bodysize, muscle mass of nutritional status. Performed By: #### 6 9405-9, 08572-4s3, 96458-3 ####[facility], [address] [place] [address]. GFRbbon 11-15-2017 eGFR (non-black) mL/min/{1.73_m2} Normal [facility] Comment on above: Performed By: #### 6 9405-9, 25470-0c2, 45144-6 ####[facility], [address] [place], [place]. HCG Quantitativeon 8 HCG Qn m[IU]/mL Normal [facility] Comment on above: Result Comment: Preg [...] immunoassay method. Performed By: #### 6 9405-9, 98913-9o0, 10894-0 ####[facility], [address] [place], [place]. Urinalysis Microscopicon Urine, bacteria in sediment RARE Abnormal NONE/HPF [facility] Comment on above: Performed By: #### 6 9405-9, 98473-9x5, 80593-2 ####[facility], [address] [place], [place]. Urine, erythrocytes in sediment by area 4126 /[HPF] High 0-5 [facility] Comment on above: Performed By: #### 6 9405-9, 93764-8p4, 83457-9 ####[facility], [address] [place], [place]. Urine, leukocytes in sedmiment 191 /[HPF] High 0-5 [facility] Comment on above: Performed By: #### 6 9405-9, 94310-7t1, 84433-1 ####[facility], [address] [facility] [place], [place]. Urine, mucus presence in sediment FEW Abnormal NONE/LPF [facility] Comment on above: Performed By: #### 6 9405-9, 81854-1j9, 26199-2 ####[facility], [address] [facility] [place] Urine, squamous cells in sediment MODERATE Abnormal FEW/LPF [facility] Comment on above: Performed By: #### 6 9405-9, 08244-9f0, 66405-1 ####[facility], [address] [facility] [place] Urinalysis with Microscopic Automaticon 11-15-2017 Bilirubin Urine Negative Normal NEGATIVE [facility] Comment on above: Performed By: #### 6 9405-9, 92113-2a9, 56721-0 ####[facility], [address] [facility] [place], [place]. Nitrite Urine Negative Normal NEGATIVE [facility] Comment on above: Performed By: #### 6 9405-9, 80025-8d1, 99767-5 ####[facility], [address] [facility] [place], [place]. Urine, appearance TURBID Abnormal CLEAR [facility] Comment on above: Performed By: #### 6 9405-9, 98321-2b2, 49739-3 ####[facility], [address] [facility] [place] Urine, color YELLOW Normal YELLOW [facility] Comment on above: Performed By: #### 6 9405-9, 25054-7v6, 62201-0 ####[facility], [address] [facility] [place] Urine, glucose presence 500MG/DL Abnormal NORMAL [facility] Comment on above: Performed By: #### 6 9405-9, 62636-3l6, 23351-3 ####[facility], [address] [place], [place]. Urine, hemoglobin presence 300/UL Abnormal NEGATIVE [facility] Comment on above: Performed By: #### 6 9405-9, 30219-4a4, 14636-6 ####[facility], [address] [place], [place]. Urine, ketones presence 5MG/DL Abnormal NEGATIVE [facility] Comment on above: Performed By: #### 6 9405-9, 80352-6z8, 68652-3 ####[facility], [address] [place], [place]. Urine, leukocyte esterase presence 25/UL Abnormal NEGATIVE [facility] Comment on above: Performed By: #### 6 9405-9, 02966-3d6, 00669-3 ####[facility], [address] [place], [place]. Urine, pH 6.0 [pH] Normal 4.5-8.0 [facility] Comment on above: Performed By: #### 6 9405-9, 81535-9b9, 41027-3 ####[facility], [address] [place], [place]. Urine, protein 100 mg/dL Abnormal NEGATIVE [facility] Comment on above: Performed By: #### 6 9405-9, 58470-1b2, 04138-1 ####[facility], [address] [place], [place]. Urine, specific gravity 1.026 Normal 1.002-1.030 [facility] Comment on above: Performed By: #### 6 9405-9, 63735-8f6, 06478-8 ####[facility] [facility], [address] [place], [place]. Urobilinogen Urine NORMAL Normal NORMAL [facility] Comment on above: Performed By: #### 6 9405-9, 59239-2u6, 21972-0 ####[facility], [address], [place]. ED Physician Noteson 018 ED Physician Notes Chief Complaint nauseaED Assigned Provider/Time Time Seen: Poncho El / 10/09/2017 18:37History of Present Illness I have introduced myself as a Physician Wood Treating Inspector and informed the patient of the supervising/collaborati [...] ORDERS PLACED: Laboratory POC Urinalysis Manual (CO) [facility] October 09, 2017 18:34 Completed POC Urine Test (CO) [facility] October 09, 2017 18:34 Completed Urinalysis with Reflex Microscopic Reynaldo [facility] October 09, 2017 18:44 Completed BMP (Basic Metabolic Panel) Reynaldo [facility] October 09, 2017 18:44 Completed CBC with Differential Reynaldo [facility] October 09, 2017 18:44 Completed Lipase Reynaldo [facility] October 09, 2017 18:44 Completed Hepatic Function Panel Reynaldo [facility] October 09, 2017 18:44 Completed U MICRO Reynaldo [facility] October 09, 2017 19:28 Completed GFRAF Reynaldo [facility] October 09, 2017 19:32 Completed GFRNAF Reynaldo [facility] October 09, 2017 19:32 Completed Normal [facility] ED Physician Notes PDF Normal [facility] Basic Metabolic Panelon 05-0 Anion gap 12.0 mmol/L Normal 6.0-18.0 [facility] Comment on above: Result Comment: PLEA SE NOTE:The calculated Anion Gap(AGAP) does not include Potassium. Performed By: #### 6 9405-9, 30145-4g6, 79364-4 ####[facility], [address] [place] [address]. Calcium 10.2 mg/dL Normal 8.9-10.3 [facility] Comment on above: Performed By: #### 6 9405-9, 91448-9s7, 93193-8 ####[facility], [address] [place], [place]. Chloride 102 mmol/L Normal 98-107 [facility] Comment on above: Performed By: #### 6 9405-9, 00968-3n5, 11599-1 ####[facility], [address], [place]. CO2 23 mmol/L Normal 22-32 [facility] Comment on above: Performed By: #### 6 9405-9, 29332-1l4, 58533-7 ####[facility], [address], [place]. Creatinine 0.84 mg/dL Normal 0.66-1.30 [facility] Comment on above: Performed By: #### 6 9405-9, 76043-4d2, 93012-9 ####[facility], [address] [place], [place]. Glucose mass conc 252 mg/dL High 70-[address] [facility] Comment on above: Performed By: #### 6 9405-9, 27467-1q9, 30896-2 ####[facility], [address] [place]. Potassium molar conc 3.6 mmol/L Normal 3.6-5.1 [facility] Comment on above: Performed By: #### 6 9405-9, 80246-8h6, 88358-7 ####[facility], [address], [place]. Sodium 137 mmol/L Normal 136-145 [facility] Comment on above: Performed By: #### 6 9405-9, 64972-8n6, 98629-4 ####[facility], [address], [place]. Urea nitrogen 15 mg/dL Normal 8-20 [facility] Comment on above: Performed By: #### 6 9405-9, 66529-4l0, 82543-1 ####[facility], [address], [place]. CBC with Differentialon 05-0 Basophils Auto #/vol (Bld) 0.10 thou/mcL Normal 0.00-0.20 [facility] Comment on above: Performed By: #### 6 9405-9, 46109-9a1, 02146-1 ####[facility], [address] [place] Basophils Auto #/vol (Bld) 0.7 % Normal 0.0-2.0 [facility] Comment on above: Performed By: #### 6 9405-9, 58120-2n6, 38373-2 ####[facility], [address], [place]. Eosinophils 0.20 thou/mcL Normal 0.00-0.70 [facility] Comment on above: Performed By: #### 6 9405-9, 39244-5h6, 80029-2 ####[facility], [address], [place]. Eosinophils/100 leukocytes 1.8 % Normal 0.0-7.0 [facility] Comment on above: Performed By: #### 6 9405-9, 32376-8o1, 05439-9 ####[facility], [address] [facility], [place], [place]. Erythrocyte distribution width Auto Ratio (RBC) 15.0 % High 11.0-14.8 [facility] Comment on above: Performed By: #### 6 9405-9, 51210-9k2, 42755-7 ####[facility], [address], [place]. Erythrocytes (RBC) 5.60 million/mcL High 3.80-5.10 [facility] Comment on above: Performed By: #### 6 9405-9, 22122-3g1, 94784-1 ####[facility], [address] [place], [place]. Hematocrit (HCT) 43.9 % Normal 35.0-45.0 [facility] Comment on above: Performed By: #### 6 9405-9, 40390-6r4, 85688-0 ####[facility], [address] [place], [place]. Hemoglobin mass conc (Bld) 14.8 g/dL Normal 12.0-16.0 [facility] Comment on above: Performed By: #### 6 9405-9, 42950-9u9, 87951-3 ####[facility], [address] [place], [place]. Lymphocytes 2.50 thou/mcL Normal 1.00-4.80 [facility] Comment on above: Performed By: #### 6 9405-9, 66382-0r9, 62671-0 ####[facility]FORM[facility], [address] [place], [place]. Lymphocytes/100 leukocytes 29.2 % Normal 22.0-44.0 [facility] Comment on above: Performed By: #### 6 9405-9, 62583-7a4, 34224-9 ####[facility], [address] [place], [place]. MCH 26.4 Picograms Low 27.0-34.0 [facility] Comment on above: Performed By: #### 6 9405-9, 45105-6l8, 36576-1 ####[facility], [address] [place], [place]. MCHC mass conc (RBC) 33.6 g/dL Normal 32.0-36.0 [facility] Comment on above: Performed By: #### 6 9405-9, 62717-0a7, 36210-2 ####[facility], [address] [place], [place]. MCV 78.4 fL Low 80.0-97.0 [facility] Comment on above: Performed By: #### 6 9405-9, 80729-8c5, 21011-5 ####[facility], [address] [place]. Monocytes 0.40 thou/mcL Normal 0.00-0.90 [facility] Comment on above: Performed By: #### 6 9405-9, 51763-4n6, 83656-5 ####[facility], [address], [place]. Monocytes/100 leukocytes 4.1 % Normal 0.0-12.0 [facility] Comment on above: Performed By: #### 6 9405-9, 45315-5d0, 39166-7 ####[facility], [address] [place]. Neutrophils 5.50 thou/mcL Normal 1.80-7.70 [facility] Comment on above: Performed By: #### 6 9405-9, 60347-8s6, 48286-6 ####[facility], [address] [place]. Neutrophils/100 WBC Auto (Bld) 64.2 % Normal 40.0-70.0 [facility] Comment on above: Performed By: #### 6 9405-9, 49146-5z9, 78542-7 ####[facility], [address] [place]. Platelet mean volume (PMV) 8.0 fL Normal 6.2-12.1 [facility] Comment on above: Performed By: #### 6 9405-9, 25902-0t1, 50214-4 ####[facility], [address], [place]. Platelets 293 thou/mcL Normal 142-424 [facility] Comment on above: Performed By: #### 6 9405-9, 72612-0y5, 43655-0 ####[facility], [address] [facility], [place], [place]. WBC (Leukocytes) 8.5 thou/mcL Normal 4.6-10.2 [facility] Comment on above: Performed By: #### 6 9405-9, 04306-5k9, 25033-5 ####[facility], [address] [place], [place]. Depart Summaryon 10-09-2017 Depart Summary EMERGENCY DEPARTMENT DISCHARGE SUMMARYPATIENT NAME:MELISSA BYRNE MRN: COL)-[id number]: 22 Years SEX: Female PHONE:[phone]: 10/09/2017 6:00 PM : 1995 ATTENDING PHYSICIAN:Josie [...] Result(s): Date Order Results 10/09/2017 18:35 Specific [place] Urine POCT N 1.030 10/09/2017 18:35 pH Urine POCT N 5 10/09/2017 18:35 Urobilinogen Urine POCT N 0 mg/dL 10/09/2017 18:45 Appearance Urine A TURBID 10/09/2017 18:45 Specific [place] Urine H 1.032 10/09/2017 18:45 Glucose Urine [...] Address: Date: Verona Hilliard MD Family Practice [address] [place] [address] [phone] (1) 1 to 2 days Normal [facility] ED Ashleigh Chan 10-09-2017 ED [place] [id number] [facility] Department Discharge Instructions MELISSA BYRNE , Please provide this information to your Primary Care/Specialist Name : MELISSA BYRNE Current Date : 10/09/2017 20:40:15DOB : 1995 12:00 PM Primary Care Physician: Verona Hilliard MD Diagnosis : Acute UTI; Epigastric pain Follow-Up Instructions:MELISSA BYRNE has been given these follow-up instructions: FOLLOW-UP APPOINTMENTS: Provider: Specialty: Address: Date: Verona Hilliard MD Family Practice [address] [place] [address] [phone] (7) 1 to 2 days Laboratory Orders: Name: [...] Servicios de Emergencia Name MELISSA BYRNE MRN (COL)-[id number] PLEASE READ THE FOLLOWING REGARDING YOUR MEDICATIONS [...] doses are changed, or new medications (including bpkn-tvb-zkcjqoa products) are added. If you have any [...] TAKE UNTIL YOU TALK TO YOUR DOCTORNone [place] [address] [facility] Discharge Instructions Name: MELISSA BYRNE Current Date: 10/09/2017 20:40:15 : 1995 12:00 PM Primary Physician: Verona Hilliard MD We would like to thank you for choosing [facility] for your emergency medical needs. We examined [...] health of those around you. Call the [employer] at 0-068-QZZY-USA or the [employer] Cancer Society at 2-769-OAZ-7858 for more information.High blood pressure: Your screening blood pressure today was 114 mm Hg / . Hypertension (high blood pressure) is blood pressure over 120/80. People with hypertension should contact their primary care provider within 30 days to follow up. Check your patient portal for additional blood pressure information.Immunizatio ns:Immunization is a way to protect against deadly infections. Discuss this with your child's cte teacher, or Public Health Department. Your family practice doctor can determine if you need pneumonia or flu vaccine. The [facility] Department can be reached at .Domestic [...] suicide hotline, anytime day or night, at 4-953-784-DWLZ. Pharmacy Information:Below is a list of 24 hour pharmacies that we are aware of. We suggest that you call the specific pharmacy for their hours before traveling to a location. Hours may vary on holidays. [facility] [place] [address] [place] [address] [phone] [address] [phone] [address] [phone] [address] [phone] [place] [address] [phone] [place] [address] [phone] [place] [address] [phone] Take all medications as directed. If you need prescription assistance, contact the following agencies:?? Partnership for Prescription Assistance at or www.BeeTV.org?? [facility] Rx at or www.AccionrTruClinic.[employer]?? [employer].bCommunitiesRWittyParrot is a site with many valuable coupons [...] alleviate any discomfort you are experiencing:???Only take lftx-ncb-elrqoqn or prescription medicines as directed by your [...] Document Reviewed: 02/02/2014Albanevpapa Interactive Patient Education ?2016 [employer] ([employer]).Obstetrics and GynecologyUrinary Tract InfectionUrinary tract infections (UTIs) [...] Released: 03/05/2006 Document Revised: 06/16/2015 Document Reviewed: 07/03/2012Francisca Interactive Patient Education ?2016 [employer].VIRUSES OR BACTERIA: WHAT'S GOT YOU SICK?Antibiotics [...] Signature Date Time Provid er Signature Normal [facility] GFRaaon 10-09-2017 eGFR (black) mL/min/{1.73_m2} Normal [facility] Comment on above: Result Comment: The MDRD equation has not been validated for those over 70 years, women, patients with serious co-morbid conditions, or with extremes of bodysize, muscle mass of nutritional status. Performed By: #### 6 9405-9, 50358-0q2, 77161-0 ####[facility], [address] [place] [address]. GFRbbon 10-09-2017 eGFR (non-black) mL/min/{1.73_m2} Normal [facility] Comment on above: Performed By: #### 6 9405-9, 65580-9h7, 55172-4 ####[facility], [address] [place], [place]. Hepatic Function Panelon Alanine aminotransferase (ALT) 45 Units/L Normal 14-63 [facility] Comment on above: Performed By: #### 6 9405-9, 71471-0k1, 77898-9 ####[facility], [address] [place], [place]. Albumin 4.6 g/dL Normal 3.5-4.8 [facility] Comment on above: Performed By: #### 6 9405-9, 36509-0a9, 59289-5 ####[facility], [address] [place], [place]. Alkaline phosphatase (ALP) 81 Units/L Normal 32-91 [facility] Comment on above: Performed By: #### 6 9405-9, 93825-5c9, 87439-4 ####[facility], [address] [place], [place]. Aspartate aminotransferase (AST) 23 Units/L Normal 15-41 [facility] Comment on above: Performed By: #### 6 9405-9, 64069-6q7, 03522-4 ####[facility], [address] [place], [place]. Bilirubin (direct) 0.0 mg/dL Low 0.1-0.5 [facility] Comment on above: Performed By: #### 6 9405-9, 10591-6e1, 23888-9 ####[facility], [address] [place]. Bilirubin (total) 0.4 mg/dL Normal 0.3-1.[address] [facility] Comment on above: Performed By: #### 6 9405-9, 73474-4c8, 29471-6 ####[facility], [address] [place], [place]. Bilirubin.indirect mass conc 0.4 mg/dL Normal 0.0-1.0 [facility] Comment on above: Performed By: #### 6 9405-9, 94822-6m8, 83511-5 ####[facility], [address] [place]. Protein 7.9 g/dL Normal 6.1-7.9 [facility] Comment on above: Performed By: #### 6 9405-9, 60125-2t0, 40444-1 ####[facility], [address] [place], [place]. Lipaseon 10-09-2017 Lipase 13 Units/L Low 22-51 [facility] Comment on above: Performed By: #### 6 9405-9, 01705-8x6, 75941-0 ####[facility], [address] [place]. Urinalysis Microscopicon Urine, erythrocytes in sediment by area 5 /[HPF] Normal 0-5 [facility] Comment on above: Performed By: #### 6 9405-9, 60053-1c9, 54943-4 ####[facility], [address] [place]. Urine, leukocytes in sedmiment 6 /[HPF] High 0-5 [facility] Comment on above: Performed By: #### 6 9405-9, 25246-8l0, 19467-0 ####[facility], [address] [place]. Urine, mucus presence in sediment RARE Abnormal NONE/LPF [facility] Comment on above: Performed By: #### 6 9405-9, 49024-0u4, 54955-3 ####[facility], [address] [place]. Urine, squamous cells in sediment MANY Abnormal FEW/LPF [facility] Comment on above: Performed By: #### 6 9405-9, 21176-7k4, 43292-0 ####[facility], [address] [place], [place]. Urinalysis with Microscopic Automaticon 10-09-2017 Bilirubin Urine Negative Normal NEGATIVE [facility] Comment on above: Performed By: #### 6 9405-9, 96916-4c6, 41414-0 ####[facility], [address] [place], [place]. Nitrite Urine Negative Normal NEGATIVE [facility] Comment on above: Performed By: #### 6 9405-9, 65328-6y8, 70883-3 ####[facility], [address] [facility] [place] Urine, appearance TURBID Abnormal CLEAR [facility] Comment on above: Performed By: #### 6 9405-9, 82147-3y5, 87787-4 ####[facility], [address] [facility] [place], [place]. Urine, color PACHECO Normal YELLOW [facility] Comment on above: Performed By: #### 6 9405-9, 29658-0y9, 46144-3 ####[facility], [address] [facility] [place]. Urine, glucose presence 150MG/DL Abnormal NORMAL [facility] Comment on above: Performed By: #### 6 9405-9, 17419-1r4, 02492-5 ####[facility], [address] [facility] [place] Urine, hemoglobin presence 10/UL Abnormal NEGATIVE [facility] Comment on above: Performed By: #### 6 9405-9, 77672-2n5, 69476-8 ####[facility], [address] [facility] [place] Urine, ketones presence 5MG/DL Abnormal NEGATIVE [facility] Comment on above: Performed By: #### 6 9405-9, 51835-5a6, 27285-2 ####[facility], [address] [place], [place]. Urine, leukocyte esterase presence 25/UL Abnormal NEGATIVE [facility] Comment on above: Performed By: #### 6 9405-9, 42047-0e9, 89349-5 ####[facility], [address] [place], [place]. Urine, pH 5.0 [pH] Normal 4.5-8.0 [facility] Comment on above: Performed By: #### 6 9405-9, 00093-6e7, 67309-3 ####[facility], [address] [place], [place]. Urine, protein 30 mg/dL Abnormal NEGATIVE [facility] Comment on above: Performed By: #### 6 9405-9, 00132-4d9, 97549-4 ####[facility], [address] [place], [place]. Urine, specific gravity 1.032 High 1.002-1.030 [facility] Comment on above: Performed By: #### 6 9405-9, 66732-7t3, 48876-8 ####[facility], [address] [place], [place]. Urobilinogen Urine NORMAL Normal NORMAL [facility] Comment on above: Performed By: #### 6 9405-9, 49299-6i9, 10961-3 ####[facility], [address] [place], [place]. ED Physician Noteson 018 ED Physician Notes Chief Complaint Abdominal pain/Vaginal bleedED Assigned Provider/Time Time Seen: Poncho El / 09/27/2017 20:20History of Present Illness I have reviewed the nurse's note. I introduced myself as the Physician Wood Treating Inspector and informed the patient of the supervising [...] today is wanting her. 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 Patient is to look for a new one here in [place]. Patient denies any nausea or vomiting. No diarrhea. No urinary related symptoms. Ectopic risk factors History of PID IUD in place Tubal ligation Previous ectopic Use of infertility drugs Surgery-lower abdomen-OPERATOR WEAPON LOCATING RADAR Smoking Frequent douching Multiple sexual partners REVIEW [...] Patient will be advised to follow-up with [facility] WELDING MACHINE OPERATOR AR[employer] clinic for further evaluation. No need for [...] MRI / Ultrasound Ultrasound Pelvis Non-OB Complete Reynaldo BUDDYPoncho September 27, 2017 20:40 Completed US Transvaginal Poncho El September 27, 2017 21:34 CompletedDone [facility] ED Physician Notes PDF [facility] Depart Summaryon 09-28-2017 Depart Summary EMERGENCY DEPARTMENT DISCHARGE SUMMARYPATIENT NAME:MELISSA BYRNE MRN: COL)-[id number]: 22 Years SEX: Female PHONE:[phone]: 09/27/2017 7:06 PM : 1995 ATTENDING PHYSICIAN:Raphael Cabezas MD PCP: Verona Hilliard MD CHIEF COMPLAINT: Abdominal pain/Vaginal bleed Allergies NKAProblems Active Mood disorder Diabetes DISCHARGE DIAGNOSIS: Dysfunctional uterine bleeding; Pelvic pain DISCHARGE INSTRUCTIONS: Dysfunctional Uterine Bleeding; Pelvic Pain, Female ED PHYSICIAN DOCUMENTATION: History of Present IllnessI have reviewed the nurse's note. ? I introduced myself as the Physician Wood Treating Inspector and informed the patient of the supervising [...] started today?is wanting her. 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 Patient?is to look for a new one here in?[place]. Patient?denies any nausea or vomiting. No diarrhea. [...] will be advised to follow-up with [facility] WELDING MACHINE OPERATOR [facility] clinic for further evaluation.?No need for any [...] Result(s): Date Order Results 09/27/2017 19:38 Specific [place] Urine POCT N 1.020 09/27/2017 19:38 pH [...] adnexal mass. No ovarian torsion.IUD in the uterus.[place] thanks you for the opportunity to care for your patient. Workstation ID: [id number] - [id number] FOLLOW UP:FOLLOW-UP APPOINTMENTS: Provider: Specialty: Address: Date: Verona Hilliard MD Family Practice [address] [place] [address] [phone] (0) Follow-up as needed Provider: Specialty: Address: Date: [facility] ([address] [address] (6) Follow-up as needed Comment: Follow-up with [facility] WELDING MACHINE OPERATOR [employer] also be further evaluated. Call Friday and make an appointment. Normal [facility] ED Pat Eduon 09-28-2017 ED Pat Edu [address] [address] Emergency Department Discharge Instructions MELISSA [...] Date: Verona Hilliard MD Family Practice [address] [phone] (1) Follow-up as needed Provider: Specialty: Address: Date: [facility] ([facility]) [address] [place], [place] [phone] (5) Follow-up as needed Comment: Follow-up with [facility] WELDING MACHINE OPERATOR [employer] also be further evaluated. Call Friday and [...] Servicios de Emergencia Name MELISSA BYRNE MRN ([facility])-[id number] PLEASE READ THE FOLLOWING REGARDING YOUR MEDICATIONS [...] doses are changed, or new medications (including tyaw-jja-bftgjvd products) are added. If you have any [...] TAKE UNTIL YOU TALK TO YOUR DOCTORNone [place] [address] [facility] Department Discharge Instructions Name: MELISSA BYRNEINE Current Date: 09/27/2017 23:44:47 : 1995 12:00 PM Primary Physician: Verona Hilliard MD We would like to thank you for choosing [facility] for your emergency medical needs. We examined [...] health of those around you. Call the [employer] at 4-431-ZADO-USA or the [employer] Cancer Society at 5-298-IAU-0470 for more information.High blood pressure: Your screening blood pressure today was 118 mm Hg / . Hypertension (high blood pressure) is blood pressure over 120/80. People with hypertension should contact their primary care provider within 30 days to follow up. Check your patient portal for additional blood pressure information.Immunizatio ns:Immunization is a way to protect against deadly infections. Discuss this with your child's cte teacher, or Public Health Department. Your family practice doctor can determine if you need pneumonia or flu vaccine. The [facility] Department can be reached at .Domestic [...] suicide hotline, anytime day or night, at 6-853-077-EBPI. Pharmacy Information:Below is a list of 24 hour pharmacies that we are aware of. We suggest that you call the specific pharmacy for their hours before traveling to a location. Hours may vary on holidays. [facility] Pharmacy [place] [address] [place] [address] [phone] [place] [address] [phone] [place] [address] [phone] [address] [phone] [place] [address] [phone] [place] [address] [phone] [place] [address] [phone] Take all medications as directed. If you need prescription assistance, contact the following agencies:?? Partnership for Prescription Assistance at or www.pparx.org?? [place] at or www.[employer]?? www.Scryer is a site with many valuable coupons [...] or later than usual. They may be coil assembler, have blood clots or be heavier. You [...] change or switch medicines without consulting your caregiver.???laborer [place] terminal heavy bleeding may result in iron deficiency. [...] Document Reviewed: 08/21/2015Francisca Interactive Patient Education ?2016 [facility] ([facility]).Pelvic Pain, FemaleFemale pelvic pain can be caused [...] vaginal discharge.???Blood tests. HOME CARE INSTRUCTIONS???Only take thpe-ayt-eyhoqvf or prescription medicines for pain, discomfort, or [...] Document Reviewed: 09/14/2012Francisca Interactive Patient Education ?2016 [employer]><><><><><><><><>< ><><><><><><><><><><><> <><><><> Patient Visit Summary Signature MELISSA BYRNE has been given the following list of patient education materials, prescriptions and follow-up instructions: ICHAVEZ ALEXANDRIA JUSTINE, have received the above patient education materials/instructions and have verbalized understanding: Date Time Patien t Signature Date Time Provid er Signature Normal [facility] [place] Duplex Abd/Pelvis Retrope r Completeon [...] adnexal mass. No ovarian torsion.IUD in the uterus.[place] thanks you for the opportunity to care for your patient. Workstation ID: [id number] - [id number] FINAL REPORT Dictated By: Hiro Newberry MD 09/27/2017 22:18Assigned Physician: Hiro Newberry MD and Electronically Signed By: Hiro Newberry MD 09/27/2017 22:21Transcribed by: TAMI 09/27/2017 22:18Technologist: SIMI Heredia [facility] US Pelvis Non-OB Completeon 09-28-2017 US [...] adnexal mass. No ovarian torsion.IUD in the uterus.[place] thanks you for the opportunity to care for your patient. Workstation ID: [id number] - [id number] FINAL REPORT Dictated By: Hiro Newberry MD 09/27/2017 22:18Assigned Physician: Hiro Newberry MD and Electronically Signed By: Hiro Newberry MD 09/27/2017 22:21Transcribed by: TAMI 09/27/2017 22:18Technologist: SIMI Heredia [facility] US Transvaginalon 09-28-2017 US Transvaginal EXAMINATION [...] adnexal mass. No ovarian torsion.IUD in the uterus.[place] thanks you for the opportunity to care for your patient. Workstation ID: [id number] - [id number] FINAL REPORT Dictated By: Hiro Newberry MD 09/27/2017 22:18Assigned Physician: Hiro Newberry MD and Electronically Signed By: Hiro Newberry MD 09/27/2017 22:21Transcribed by: TAMI 09/27/2017 22:18Technologist: SIMI Normal [facility] Basic Metabolic Panelon 09-07 Anion gap 11.0 mmol/L Normal 6.0-18.0 [facility] Comment on above: Result Comment: PLERaymond BARKER NOTE:The calculated Anion Gap(AGAP) does not include Potassium. Performed By: #### 6 9405-9, 66927-4e2, 98040-6 ####[facility], [address], [place]. Calcium 9.9 mg/dL Normal 8.9-10.3 [facility] Comment on above: Performed By: #### 6 9405-9, 16550-3u6, 68854-3 ####[facility], [address], [place]. Chloride 101 mmol/L Normal 98-107 [facility] Comment on above: Performed By: #### 6 9405-9, 44922-3t3, 53732-1 ####[facility], [address], [place]. CO2 22 mmol/L Normal 22-32 [facility] Comment on above: Performed By: #### 6 9405-9, 16152-6l8, 87553-8 ####[facility], [address], [place]. Creatinine 0.56 mg/dL Low 0.66-1.30 [facility] Comment on above: Performed By: #### 6 9405-9, 56457-6e9, 97635-1 ####[facility], [address], [place]. Glucose mass conc 252 mg/dL High 70-[address] [facility] Comment on above: Performed By: #### 6 9405-9, 98684-9l2, 48728-4 ####[facility], [address] [place], [place]. Potassium molar conc 3.9 mmol/L Normal 3.6-5.1 [facility] Comment on above: Performed By: #### 6 9405-9, 74095-3q2, 91067-3 ####[facility], [address], [place] Sodium 134 mmol/L Low 136-145 [facility] Comment on above: Performed By: #### 6 9405-9, 93601-9g0, 06375-1 ####[facility], [address], [place] Urea nitrogen 12 mg/dL Normal 8-20 [facility] Comment on above: Performed By: #### 6 9405-9, 26446-1c1, 00649-8 ####[facility], [address], [place] CBCon 09-18-2017 Erythrocyte distribution width Auto Ratio (RBC) 14.3 % Normal 11.0-14.8 [facility] Comment on above: Performed By: #### 2 4317-0 ####[facility], [address] [place], [place]. Erythrocytes (RBC) 5.98 million/mcL High 3.80-5.10 [facility] Comment on above: Performed By: #### 2 4317-0 ####[facility], [address] [place], [place]. Hematocrit (HCT) 45.7 % High 35.0-45.0 [facility] Comment on above: Performed By: #### 2 4317-0 ####[facility], [address] [place], [place]. Hemoglobin mass conc (Bld) 15.3 g/dL Normal 12.0-16.0 [facility] Comment on above: Performed By: #### 2 4317-0 ####[facility], [address] [place], [place]. MCH 25.6 Picograms Low 27.0-34.0 [facility] Comment on above: Performed By: #### 2 4317-0 ####[facility], [address] [place], [place]. MCHC mass conc (RBC) 33.5 g/dL Normal 32.0-36.0 [facility] Comment on above: Performed By: #### 2 4317-0 ####[facility], [address] [place], [place]. MCV 76.5 fL Low 80.0-97.0 [facility] Comment on above: Performed By: #### 2 4317-0 ####[facility], [address] [place], [place]. Platelet mean volume (PMV) 8.0 fL Normal 6.2-12.1 [facility] Comment on above: Performed By: #### 2 4317-0 ####[facility], [address] [place] Platelets 330 thou/mcL Normal 142-424 [facility] Comment on above: Performed By: #### 2 4317-0 ####[facility], [address] [facility] [facility] [place] WBC (Leukocytes) 9.9 thou/mcL Normal 4.6-10.2 [facility] Comment on above: Performed By: #### 2 4317-0 ####[facility], [address] [facility] [place] Depart Summaryon 09-18-2017 Depart Summary EMERGENCY DEPARTMENT DISCHARGE SUMMARYPATIENT NAME:MELISSA BYRNE : 22 Years SEX: Female PHONE:[id number]: 09/18/2017 2:10 PM : 1995 ATTENDING PHYSICIAN:Josie [...] Result(s): Date Order Results 09/18/2017 15:25 Specific [place] Urine POCT N 1.020 09/18/2017 15:25 pH [...] fluid. This may simply be physiologic in nature.[place] thanks you for the opportunity to care [...] fluid. This may simply be physiologic in nature.[place] thanks you for the opportunity to care for your patient. Workstation ID: [id number] - [id number] FOLLOW UP:FOLLOW-UP APPOINTMENTS: Provider: Specialty: Address: Date: Verona Hilliard MD Family [address] [phone] (1) 1 to 2 days Normal [facility] ED Pat Eduon 09-18-2017 ED Pat Edu [place] [address] [facility] Discharge Instructions MELISSA BYRNE , Please provide this information to your Primary Care/Specialist Name : MELISSA BYRNE Current Date : 09/18/2017 17:27:36DOB : 1995 12:00 PM Primary Care Physician: Verona Hilliard MD Diagnosis : Hyperglycemia; Pelvic pain Follow-Up Instructions:MELISSA BYRNE has been given these follow-up instructions: FOLLOW-UP APPOINTMENTS: Provider: Specialty: Address: Date: Verona Hilliard MD Family [address] [phone] (1) 1 to 2 days Laboratory Orders: [...] Servicios de Emergencia Name MELISSA BYRNE MRN [facility]-[id number] PLEASE READ THE FOLLOWING REGARDING YOUR MEDICATIONS [...] doses are changed, or new medications (including zrhm-zfv-cyhatem products) are added. If you have any [...] TAKE UNTIL YOU TALK TO YOUR DOCTORNone [place] [address] Emergency Department Discharge Instructions Name: MELISSA BYRNE Current Date: 09/18/2017 17:27:36 : 1995 12:00 PM Primary Physician: Verona Hilliard MD We would like to thank you for choosing [facility] for your emergency medical needs. We examined [...] health of those around you. Call the [employer] at 2-645-QAVW-[place] or the [employer] at 9-397-XEO-9933 for more information.High blood pressure: Your screening blood pressure today was 132 mm Hg / . Hypertension (high blood pressure) is blood pressure over 120/80. People with hypertension should contact their primary care provider within 30 days to follow up. Check your patient portal for additional blood pressure information.Immunizatio ns:Immunization is a way to protect against deadly infections. Discuss this with your child's cte teacher, or Public Health Department. Your family practice doctor can determine if you need pneumonia or flu vaccine. The [facility] Department can be reached at .Domestic [...] suicide hotline, anytime day or night, at 6-612-507-TTMU. Pharmacy Information:Below is a list of 24 hour pharmacies that we are aware of. We suggest that you call the specific pharmacy for their hours before traveling to a location. Hours may vary on holidays. [facility] [address] [address] [phone] [address] [phone] [place] [address] [phone] [address] [phone] [address] [phone] [address] [phone] [place] [address] [phone] Take all medications as directed. If you need prescription assistance, contact the following agencies:?? Partnership for Prescription Assistance at or www.pparx.org?? [facility] at or www.GreenWattbestrx.org?? www.bCommunitiesRTruClinic.[employer]Care's is a site with many valuable coupons [...] alleviate any discomfort you are experiencing:???Only take znkw-abm-sxejdcp or prescription medicines as directed by your [...] Document Reviewed: 02/02/2014Francisca Interactive Patient Education ?2016 [facility] ([facility]).Obstetrics and GynecologyPelvic Pain, FemaleFemale pelvic pain can [...] vaginal discharge.???Blood tests. HOME CARE INSTRUCTIONS???Only take dune-xim-rojiyzp or prescription medicines for pain, discomfort, or [...] Document Reviewed: 09/14/2012Francisca Interactive Patient Education ?2016 [facility] ([facility]).Preventive MedicineBlood Glucose Monitoring, AdultMonitoring your blood glucose [...] Document Reviewed: 10/18/2013Francisca Interactive Patient Education ?2016 [employer]><><><><><><><><>< ><><><><><><><><><>< ><><><><><> Patient Visit Summary Signature MELISSA BYRNE has been given the following list of patient education materials, prescriptions and follow-up instructions: ICHAVEZ ALEXANDRIA JUSTINE, have received the above patient education materials/instructions and have verbalized understanding: Date Time Patien t Signature Date Time Provid er Signature Normal [facility] ED Physician Noteson 018 ED Physician [...] Patient is a 26 years old left Syrian male with no known significant past medical [...] and patient was advised to follow-up with PCP/WELDING MACHINE OPERATOR [facility]. Patient will be prescribed naproxen for pain [...] This may simply be physiologic in nature. [place] thanks you for the opportunity to care for your patient. Workstation ID: [id number] - [id number] ORDERS PLACED: Laboratory Urinalysis Manual POCT (CO) Poncho El September 18, 2017 15:07 Completed Urine Test POCT (CO) Reynaldo GOODWIN [facility] September 18, 2017 15:08 Completed CBC Reynaldo GOODWIN [facility] September 18, 2017 15:28 Completed BMP (Basic Metabolic Panel) Reynaldo GOODWIN [facility] September 18, 2017 15:29 Completed GFRAF Reynaldo GOODWIN [facility] September 18, 2017 16:01 Completed GFRNAF Reynaldo GOODWIN [facility] September 18, 2017 16:01 Completed Xray [place] Duplex Abd/Pelvis Retroper Complete Poncho El September 18, 2017 15:[address] / MRI / Ultrasound US Transvaginal Poncho El September 18, 2017 15:58 Completed Ultrasound Pelvis Non-OB Complete ReynaldoPoncho Tariq September 18, 2017 15:29 Completed Normal [facility] ED Physician Notes PDF Normal [facility] GFRaaon 09-18-2017 eGFR (black) mL/min/{1.73_m2} Normal [facility] Comment on above: Result Comment: The MDRD equation has not been validated for those over 70 years, women, patients with serious co-morbid conditions, or with extremes of bodysize, muscle mass of nutritional status. Performed By: #### 6 9405-9, 64307-2s3, 59001-6 ####[facility], [address] [facility], [place] GFRbbon 09-18-2017 eGFR (non-black) mL/min/{1.73_m2} Normal [facility] Comment on above: Performed By: #### 6 9405-9, 84236-3j5, 92961-9 ####[facility], [address] [facility] [place] Duplex Abd/Pelvis Retrope r Completeon [...] fluid. This may simply be physiologic in nature.[place] thanks you for the opportunity to care for your patient. Workstation ID: [id number] - [id number] FINAL REPORT Dictated By: Miguel Espinosa MD 09/18/2017 16:58Assigned Physician: Miguel Espinosa MD CReviewed and Electronically Signed By: Miguel Espinosa MD 09/18/2017 17:01Transcribed by: TAMI 09/18/2017 16:58Technologist: LARA [facility]ia [facility] US Pelvis Non-OB Completeon 09-18-2017 US [...] 17:01Transcribed by: TAMI 09/18/2017 16:58Technologist: LARA Heredia [facility] US Transvaginalon 09-18-2017 US Transvaginal TRANSABDOMINAL [...] By: Miguel Espinosa MD 09/18/2017 17:01Transcribed by: [facility] 09/18/2017 16:58Technologist: [facility] Vital Signs Date Time Vital Sign Value Performing Clinician Facility 01-21-2025 00:34-0400 Body temperature 97.9 [degF] Dr. Jamari Byrne MD Work Phone: [facility] 01-21-2025 00:34-0400 Diastolic blood pressure 84 mm[Hg] Dr. Jamari Byrne MD Work Phone: [facility] 01-21-2025 00:34-0400 Heart rate 100 /min Dr. Jamari Byrne MD Work Phone: [facility] 01-21-2025 00:34-0400 Respiratory rate 20 /min Dr. Jamari Byrne MD Work Phone: [facility] 01-21-2025 00:34-0400 SaO2% (BldA) [Mass fraction] 100 % Dr. Jamari Byrne MD Work Phone: [facility] 01-21-2025 00:34-0400 Systolic blood pressure 123 mm[Hg] Dr. Jamari Byrne MD Work Phone: [facility] 01-20-2025 22:32-0400 Body height 157.[address] Jamari Byrne MD Work Phone: [facility] 01-20-2025 22:32-0400 Body mass index (BMI) [Ratio] 37.8 kg/m2 Dr. Jamari Byrne MD Work Phone: [facility] 01-20-2025 22:32-0400 Body weight 93.[address] Jamari Byrne MD Work Phone: [facility] 01-20-2025 10:16-0400 Body mass index (BMI) [Ratio] 37.5 kg/m2 Kelsy Radha DO Work Phone: [facility] 01-20-2025 10:16-0400 Body weight 94.2 kg Kelsy Radha DO Work Phone: [facility] 01-20-2025 10:16-0400 Diastolic blood pressure 78 mm[Hg] Kelsy Radha DO Work Phone: [facility] 01-20-2025 10:16-0400 Heart rate 91 /min Kelsy Radha DO Work Phone: [facility] 01-20-2025 10:16-0400 Systolic blood pressure 100 mm[Hg] Kelsy Radha DO Work Phone: [facility] 01-19-2025 13:15-0400 Body mass index (BMI) [Ratio] 37.01 kg/m2 Whit Schulte MD Work Phone: [facility] 01-19-2025 13:15-0400 Body weight 92.99 kg Whit Schlute MD Work Phone: [facility] 01-19-2025 13:15-0400 Diastolic blood pressure 70 mm[Hg] Whit Schulte MD Work Phone: [facility] 01-19-2025 13:15-0400 Systolic blood pressure 126 mm[Hg] Whit Schulte MD Work Phone: [facility] 12-21-2024 13:46-0400 Body mass index (BMI) [Ratio] 34.85 kg/m2 William Gramajo MD Work Phone: [facility] 12-21-2024 13:46-0400 Body weight 87.54 kg William Gramajo MD Work Phone: [facility] 12-21-2024 13:46-0400 Diastolic blood pressure 70 mm[Hg] William Gramajo MD Work Phone: [facility] 12-21-2024 13:46-0400 Systolic blood pressure 118 mm[Hg] William Gramajo MD Work Phone: [facility] 12-16-2024 20:40-0400 Diastolic blood pressure 70 mm[Hg] Dr. Jamari Byrne MD Work Phone: [facility] 12-16-2024 20:40-0400 Heart rate 75 /min Dr. Jamari Byrne MD Work Phone: [facility] 12-16-2024 20:40-0400 Systolic blood pressure 115 mm[Hg] Dr. Jamari Byrne MD Work Phone: [facility] 12-16-2024 20:12-0400 Body height 157.[address] Jamari Byrne MD Work Phone: [facility] 12-16-2024 20:12-0400 Body mass index (BMI) [Ratio] 79.3 kg/m2 Dr. Jamari Byrne MD Work Phone: [facility] 12-16-2024 20:12-0400 Body weight 196.[address] Jamari Byrne MD Work Phone: [facility] 12-16-2024 20:00-0400 Body temperature 97.9 [degF] Dr. Jamari Byrne MD Work Phone: [facility] 12-16-2024 20:00-0400 Respiratory rate 18 /min Dr. Jamari Byrne MD Work Phone: [facility] 12-16-2024 20:00-0400 SaO2% (BldA) [Mass fraction] 98 % Dr. Jamari Byrne MD Work Phone: [facility] 12-09-2024 07:37-0400 Diastolic blood pressure 80 mm[Hg] Dr. Jamari Byrne MD Work Phone: [facility] 12-09-2024 07:37-0400 Heart rate 84 /min Dr. Jamari Byrne MD Work Phone: [facility] 12-09-2024 07:37-0400 Systolic blood pressure 136 mm[Hg] Dr. Jamari Byrne MD Work Phone: [facility] 12-09-2024 07:35-0400 Body temperature 96.4 [degF] Dr. Jamari Byrne MD Work Phone: [facility] 12-09-2024 07:35-0400 Respiratory rate 16 /min Dr. Jamari Byrne MD Work Phone: [facility] 12-09-2024 07:35-0400 SaO2% (BldA) [Mass fraction] 98 % Dr. Jamari Byrne MD Work Phone: [facility] 12-08-2024 20:31-0400 Inhaled oxygen flow rate 98 L/min Dr. Jamari Byrne MD Work Phone: [facility] 12-07-2024 11:10-0400 Body height 157.[address] Jamari Byrne MD Work Phone: [facility] 12-07-2024 11:10-0400 Body mass index (BMI) [Ratio] 38.7 kg/m2 Dr. Jamari Byrne MD Work Phone: [facility] 12-07-2024 11:10-0400 Body weight [address] Jamari Byrne MD Work Phone: [facility] 12-06-2024 09:46-0400 Body mass index (BMI) [Ratio] 38.1 kg/m2 Ronaldo Rubio MD Work Phone: [facility] 12-06-2024 09:46-0400 Body weight 95.71 kg Ronaldo Rubio MD Work Phone: [facility] 12-06-2024 09:46-0400 Diastolic blood pressure 70 mm[Hg] Ronaldo Rubio MD Work Phone: [facility] 12-06-2024 09:46-0400 Systolic blood pressure 116 mm[Hg] Ronaldo Rubio MD Work Phone: [facility] 12-02-2024 10:04-0400 Body mass index (BMI) [Ratio] 38.28 kg/m2 Keshav Loving MD Work Phone: [facility] 12-02-2024 10:04-0400 Body weight 96.16 kg Keshav Loving MD Work Phone: [facility] 12-02-2024 10:04-0400 Diastolic blood pressure 72 mm[Hg] Keshav Loving MD Work Phone: [facility] 12-02-2024 10:04-0400 Systolic blood pressure 104 mm[Hg] Keshav Loving MD Work Phone: [facility] 11-30-2024 15:35-0400 Body mass index (BMI) [Ratio] 38.1 kg/m2 [facility] 11-30-2024 15:35-0400 Body weight 95.71 kg [facility] 11-30-2024 15:35-0400 Diastolic blood pressure 64 mm[Hg] [facility] 11-30-2024 15:35-0400 Systolic blood pressure 128 mm[Hg] [facility] 11-25-2024 08:37-0400 Body mass index (BMI) [Ratio] 37.56 kg/m2 William Gramajo MD Work Phone: [facility] 11-25-2024 08:37-0400 Body weight 94.35 kg William Gramajo MD Work Phone: [facility] 11-25-2024 08:37-0400 Diastolic blood pressure 79 mm[Hg] William Gramajo MD Work Phone: [facility] 11-25-2024 08:37-0400 Systolic blood pressure 123 mm[Hg] William Gramajo MD Work Phone: [facility] 11-22-2024 09:17-0400 Diastolic blood pressure 70 mm[Hg] [facility] 11-22-2024 09:17-0400 Systolic blood pressure 126 mm[Hg] [facility] 11-18-2024 14:25-0400 Body mass index (BMI) [Ratio] 37.95 kg/m2 Keshav Loving MD Work Phone: [facility] 11-18-2024 14:25-0400 Body weight 95.35 kg Keshav Loving MD Work Phone: [facility] 11-18-2024 14:25-0400 Diastolic blood pressure 80 mm[Hg] Keshav Loving MD Work Phone: [facility] 11-18-2024 14:25-0400 Systolic blood pressure 119 mm[Hg] Keshav Loving MD Work Phone: [facility] 11-15-2024 16:13-0400 Diastolic blood pressure 75 mm[Hg] Dr. Jamari Byrne MD Work Phone: [facility] 11-15-2024 16:13-0400 Heart rate 96 /min Dr. Jamari Byrne MD Work Phone: [facility] 11-15-2024 16:13-0400 Systolic blood pressure 118 mm[Hg] Dr. Jamari Byrne MD Work Phone: [facility] 11-15-2024 16:12-0400 Body temperature 97.5 [degF] Dr. Jamari Byrne MD Work Phone: [facility] 11-15-2024 16:12-0400 Respiratory rate 16 /min Dr. Jamari Byrne MD Work Phone: [facility] 11-15-2024 16:12-0400 SaO2% (BldA) [Mass fraction] 98 % Dr. Jamari Byrne MD Work Phone: [facility] 11-15-2024 16:01-0400 Body height 157.[address] Jamari Byrne MD Work Phone: [facility] 11-15-2024 16:01-0400 Body mass index (BMI) [Ratio] 37.8 kg/m2 Dr. Jamari Byrne MD Work Phone: [facility] 11-15-2024 16:01-0400 Body weight 93.[address] Jamari Bynre MD Work Phone: [facility] 11-15-2024 08:29-0400 Body mass index (BMI) [Ratio] 37.66 kg/m2 Keshav Loving MD Work Phone: [facility] 11-15-2024 08:29-0400 Body weight 94.62 kg Keshav Loving MD Work Phone: [facility] 11-15-2024 08:29-0400 Diastolic blood pressure 68 mm[Hg] Keshav Loving MD Work Phone: [facility] 11-15-2024 08:29-0400 Systolic blood pressure 120 mm[Hg] Keshav Loving MD Work Phone: [facility] 11-11-2024 09:12-0400 Body mass index (BMI) [Ratio] 37.01 kg/m2 Krys Kulkarni MD Work Phone: [facility] 11-11-2024 09:12-0400 Body weight 92.99 kg Krys Kulkarni MD Work Phone: [facility] 11-11-2024 09:12-0400 Diastolic blood pressure 70 mm[Hg] Krys Kulkarni MD Work Phone: [facility] Comment on above: true bp 116/79; 109/75; 109/75; 108/74; 101/67; 108/74 11-11-2024 09:12-0400 Systolic blood pressure 128 mm[Hg] Krys Kulkarni MD Work Phone: [facility] Comment on above: true bp 116/79; 109/75; 109/75; 108/74; 101/67; 108/74 11-08-2024 09:29-0400 Diastolic blood pressure 64 mm[Hg] [facility] 11-08-2024 09:29-0400 Systolic blood pressure 126 mm[Hg] [facility] 11-05-2024 10:18-0400 Body mass index (BMI) [Ratio] 37.12 kg/m2 Krys Kulkarni MD Work Phone: [facility] 11-05-2024 10:18-0400 Body weight 93.26 kg Krys Kulkarni MD Work Phone: [facility] 11-05-2024 10:18-0400 Diastolic blood pressure 77 mm[Hg] Krys Kulkarni MD Work Phone: [facility] 11-05-2024 10:18-0400 Systolic blood pressure 114 mm[Hg] Krys Kulkarni MD Work Phone: [facility] 11-04-2024 09:43-0400 Body mass index (BMI) [Ratio] 37.34 kg/m2 Kelsy Radha DO Work Phone: [facility] 11-04-2024 09:43-0400 Body weight 93.8 kg Kelsy Radha DO Work Phone: [facility] 11-04-2024 09:43-0400 Diastolic blood pressure 68 mm[Hg] Kelsy Radha DO Work Phone: [facility] 11-04-2024 09:43-0400 Heart rate 102 /min Kelsy Radha DO Work Phone: [facility] 11-04-2024 09:43-0400 Systolic blood pressure 104 mm[Hg] Kelsy Radha DO Work Phone: [facility] 11-02-2024 09:36-0400 Body mass index (BMI) [Ratio] 37.41 kg/m2 [facility] [facility] 11-02-2024 09:36-0400 Body weight 93.98 kg [facility] 11-02-2024 09:36-0400 Diastolic blood pressure 60 mm[Hg] [facility] 11-02-2024 09:36-0400 Systolic blood pressure 112 mm[Hg] [facility] 10-25-2024 09:21-0400 Body mass index (BMI) [Ratio] 36.47 kg/m2 Piper Julian MD Work Phone: [facility] 10-25-2024 09:21-0400 Body weight 91.63 kg Piper Julian MD Work Phone: [facility] 10-25-2024 09:21-0400 Diastolic blood pressure 71 mm[Hg] Piper Julian MD Work Phone: [facility] 10-25-2024 09:21-0400 Systolic blood pressure 114 mm[Hg] Piper Julian MD Work Phone: [facility] 10-18-2024 13:38-0400 Body mass index (BMI) [Ratio] 36.11 kg/m2 Whit Schulte MD Work Phone: [facility] 10-18-2024 13:38-0400 Body weight 90.72 kg Whit Schulte MD Work Phone: [facility] 10-18-2024 13:38-0400 Diastolic blood pressure 60 mm[Hg] Whit Schulte MD Work Phone: [facility] 10-18-2024 13:38-0400 Systolic blood pressure 110 mm[Hg] Whit Schulte MD Work Phone: [facility] 10-16-2024 17:56-0400 Body temperature 98.1 [degF] Dr. Jamari Byrne MD Work Phone: [facility] 10-16-2024 17:56-0400 Diastolic blood pressure 71 mm[Hg] Dr. Jamari Byrne MD Work Phone: [facility] 10-16-2024 17:56-0400 Heart rate 96 /min Dr. Jamari Byrne MD Work Phone: [facility] 10-16-2024 17:56-0400 Respiratory rate 14 /min Dr. Jamari Byrne MD Work Phone: [facility] 10-16-2024 17:56-0400 SaO2% (BldA) [Mass fraction] 99 % Dr. Jamari Byrne MD Work Phone: [facility] 10-16-2024 17:56-0400 Systolic blood pressure 127 mm[Hg] Dr. Jamari Byrne MD Work Phone: [facility] 10-16-2024 17:53-0400 Body height 157.[address] Jamari Byrne MD Work Phone: [facility] 10-16-2024 17:53-0400 Body mass index (BMI) [Ratio] 36.8 kg/m2 Dr. Jamari Byrne MD Work Phone: [facility] 10-16-2024 17:53-0400 Body weight 91.[address] Jaamri Byrne MD Work Phone: [facility] 10-04-2024 11:38-0400 Body mass index (BMI) [Ratio] 35.39 kg/m2 Piper Julian MD Work Phone: [facility] 10-04-2024 11:38-0400 Body weight 88.91 kg Piper Julian MD Work Phone: [facility] 10-04-2024 11:38-0400 Diastolic blood pressure 68 mm[Hg] Piper Julian MD Work Phone: [facility] 10-04-2024 11:38-0400 Systolic blood pressure 114 mm[Hg] Piper Julian MD Work Phone: [facility] 09-24-2024 15:07-0400 Body height 157.[address] Jamari Byrne MD Work Phone: [facility] 09-24-2024 15:07-0400 Body mass index (BMI) [Ratio] 35.5 kg/m2 Dr. Jamari Byrne MD Work Phone: [facility] 09-24-2024 15:07-0400 Body weight 88.[address] Jamari Byrne MD Work Phone: [facility] 09-24-2024 14:07-0400 Body temperature 98.1 [degF] Dr. Jamari Byrne MD Work Phone: [facility] 09-24-2024 14:07-0400 Respiratory rate 16 /min Dr. Jamari Byrne MD Work Phone: [facility] 09-24-2024 14:06-0400 Diastolic blood pressure 70 mm[Hg] Dr. Jamari Byrne MD Work Phone: [facility] 09-24-2024 14:06-0400 Heart rate 100 /min Dr. Jamari Byrne MD Work Phone: [facility] 09-24-2024 14:06-0400 Systolic blood pressure 122 mm[Hg] Dr. Jamari Byrne MD Work Phone: [facility] 09-24-2024 08:47-0400 Body mass index (BMI) [Ratio] 34.85 kg/m2 Leonie Waldron MANAGER ASSURANCE.CNM Work Phone: [facility] 09-24-2024 08:47-0400 Body weight 87.54 kg Leonie Waldron MANAGER ASSURANCE.CNM Work Phone: [facility] 09-24-2024 08:47-0400 Diastolic blood pressure 64 mm[Hg] Leonie Waldron MANAGER ASSURANCE.CNM Work Phone: [facility] 09-24-2024 08:47-0400 Systolic blood pressure 110 mm[Hg] Leonie Waldron MANAGER ASSURANCE.CNM Work Phone: [facility] 09-20-2024 13:22-0400 Body mass index (BMI) [Ratio] 34.59 kg/m2 Kelsy Radha DO Work Phone: [facility] 09-20-2024 13:22-0400 Body weight 86.9 kg Kelsy Radha DO Work Phone: [facility] 09-20-2024 13:22-0400 Diastolic blood pressure 71 mm[Hg] Kelsy Radha DO Work Phone: [facility] 09-20-2024 13:22-0400 Heart rate 104 /min Kelsy Radha DO Work Phone: [facility] 09-20-2024 13:22-0400 Systolic blood pressure 116 mm[Hg] Kelsy Guillermo Work Phone: [facility] 09-07-2024 10:42-0400 Body mass index (BMI) [Ratio] 34.31 kg/m2 Ronaldo Rubio MD Work Phone: [facility] 09-07-2024 10:42-0400 Body weight 86.18 kg Ronaldo Rubio MD Work Phone: [facility] 09-07-2024 10:42-0400 Diastolic blood pressure 60 mm[Hg] Ronaldo Rubio MD Work Phone: [facility] 09-07-2024 10:42-0400 Systolic blood pressure 120 mm[Hg] Ronaldo Rubio MD Work Phone: [facility] 09-06-2024 10:02-0400 Body mass index (BMI) [Ratio] 34.61 kg/m2 Jamari Byrne MD Work Phone: [facility] 09-06-2024 10:02-0400 Body weight 85.82 kg Jamari Byrne MD Work Phone: [facility] 09-06-2024 10:02-0400 Diastolic blood pressure 68 mm[Hg] Jamari Byrne MD Work Phone: [facility] 09-06-2024 10:02-0400 Heart rate 98 /min Jamari Byrne MD Work Phone: [facility] 09-06-2024 10:02-0400 SaO2% (BldA) [Mass fraction] 98 % Jamari Byrne MD Work Phone: [facility] 09-06-2024 10:02-0400 Systolic blood pressure 120 mm[Hg] Jamari Byrne MD Work Phone: [facility] 09-02-2024 11:57-0400 Diastolic blood pressure 60 mm[Hg] [facility] 09-02-2024 11:57-0400 Systolic blood pressure 112 mm[Hg] [facility] 08-10-2024 08:05-0500 Body mass index (BMI) [Ratio] 33.26 kg/m2 [facility] 08-10-2024 08:05-0500 Body weight 83.55 kg [facility] 08-10-2024 08:05-0500 Diastolic blood pressure 70 mm[Hg] [facility] 08-10-2024 08:05-0500 Systolic blood pressure 112 mm[Hg] [facility] 07-26-2024 13:40-0500 Body mass index (BMI) [Ratio] 33.22 kg/m2 Kelsy Radha DO Work Phone: [facility] 07-26-2024 13:40-0500 Body weight 83.45 kg Kelsy Radha DO Work Phone: [facility] 07-26-2024 13:40-0500 Diastolic blood pressure 58 mm[Hg] Kelsy Radha DO Work Phone: [facility] 07-26-2024 13:40-0500 Heart rate 94 /min Kelsy Radha DO Work Phone: [facility] 07-26-2024 13:40-0500 Systolic blood pressure 127 mm[Hg] Kelsy Radha DO Work Phone: [facility] 07-23-2024 11:27-0500 Body mass index (BMI) [Ratio] 32.5 kg/m2 William Gramajo MD Work Phone: [facility] 07-23-2024 11:27-0500 Body weight 81.65 kg William Gramajo MD Work Phone: [facility] 07-23-2024 11:27-0500 Diastolic blood pressure 60 mm[Hg] William Gramajo MD Work Phone: [facility] 07-23-2024 11:27-0500 Systolic blood pressure 108 mm[Hg] William Gramajo MD Work Phone: [facility] 07-13-2024 09:51-0500 Body mass index (BMI) [Ratio] 32.21 kg/m2 William Gramajo MD Work Phone: [facility] 07-13-2024 09:51-0500 Body weight 80.92 kg William Gramajo MD Work Phone: [facility] 07-13-2024 09:51-0500 Diastolic blood pressure 60 mm[Hg] William Gramajo MD Work Phone: [facility] 07-13-2024 09:51-0500 Systolic blood pressure 110 mm[Hg] William Gramajo MD Work Phone: [facility] 07-01-2024 21:50-0500 Body temperature 98.71 [degF] Sixto Myers MD Work Phone: [facility] 07-01-2024 21:00-0500 Diastolic blood pressure 81 mm[Hg] Sixto Myers MD Work Phone: [facility] 07-01-2024 21:00-0500 Heart rate 110 /min Sixto Myers MD Work Phone: [facility] 07-01-2024 21:00-0500 Respiratory rate 18 /min Sixto Myers MD Work Phone: [facility] 07-01-2024 21:00-0500 SaO2% (BldA) [Mass fraction] 93 % Sixto Myers MD Work Phone: [facility] 07-01-2024 21:00-0500 Systolic blood pressure 123 mm[Hg] Sixto Myers MD Work Phone: [facility] 07-01-2024 19:43-0500 Body height 157.5 cm Sixto Myers MD Work Phone: [facility] 07-01-2024 19:43-0500 Body mass index (BMI) [Ratio] 32.56 kg/m2 Sixto Myers MD Work Phone: [facility] 07-01-2024 19:43-0500 Body weight 80.74 kg Sixto Myers MD Work Phone: [facility] 06-15-2024 14:25-0500 Body mass index (BMI) [Ratio] 32.17 kg/m2 Pooja Latham MD Work Phone: [facility] 06-15-2024 14:25-0500 Body weight 80.83 kg Pooja Latham MD Work Phone: [facility] 06-15-2024 14:25-0500 Diastolic blood pressure 58 mm[Hg] Pooja Latham MD Work Phone: [facility] 06-15-2024 14:25-0500 Systolic blood pressure 100 mm[Hg] Pooja Latham MD Work Phone: [facility] 06-07-2024 14:07-0500 Body mass index (BMI) [Ratio] 31.68 kg/m2 Kelsy Radha DO Work Phone: [facility] 06-07-2024 14:07-0500 Body weight 79.6 kg Kelsy Radha DO Work Phone: [facility] 06-07-2024 14:07-0500 Diastolic blood pressure 64 mm[Hg] Kelsy Radha DO Work Phone: [facility] 06-07-2024 14:07-0500 Heart rate 85 /min Kelsy Radha DO Work Phone: [facility] 06-07-2024 14:07-0500 Systolic blood pressure 104 mm[Hg] Kelsy Radha DO Work Phone: [facility] 05-26-2024 09:57-0500 Body mass index (BMI) [Ratio] 31.24 kg/m2 Krys Kulkarni MD Work Phone: [facility] 05-26-2024 09:57-0500 Body weight 78.47 kg Krys Kulkarni MD Work Phone: [facility] 05-26-2024 09:57-0500 Diastolic blood pressure 76 mm[Hg] Krys Kulkarni MD Work Phone: [facility] 05-26-2024 09:57-0500 Systolic blood pressure 116 mm[Hg] Krys Kulkarni MD Work Phone: [facility] 05-21-2024 19:12-0500 Body height 157.5 cm Reza Dyer DO Work Phone: [facility] 05-21-2024 19:12-0500 Body mass index (BMI) [Ratio] 31.28 kg/m2 Reza Dyer DO Work Phone: [facility] 05-21-2024 19:12-0500 Body temperature 97.7 [degF] Reza Dyer DO Work Phone: [facility] 05-21-2024 19:12-0500 Body weight 77.56 kg Reza Dyer DO Work Phone: [facility] 05-21-2024 19:12-0500 Diastolic blood pressure 68 mm[Hg] Reza Dyer DO Work Phone: [facility] 05-21-2024 19:12-0500 Heart rate 91 /min Reza Dyer DO Work Phone: [facility] 05-21-2024 19:12-0500 Respiratory rate 18 /min Reza Dyer DO Work Phone: [facility] 05-21-2024 19:12-0500 SaO2% (BldA) [Mass fraction] 100 % Reza Dyer DO Work Phone: [facility] 05-21-2024 19:12-0500 Systolic blood pressure 115 mm[Hg] Reza Dyer DO Work Phone: [facility] 05-07-2024 09:29-0500 Body height 158.5 cm Zayda Parker APRN.WAREHOUSE UNLOADER Work Phone: [facility] 05-07-2024 09:29-0500 Body mass index (BMI) [Ratio] 31.02 kg/m2 Zayda Parker APRN.WAREHOUSE UNLOADER Work Phone: [facility] 05-07-2024 09:29-0500 Body weight 77.93 kg Zayda Parker SARAHY.WAREHOUSE UNLOADER Work Phone: [facility] 05-07-2024 09:29-0500 Diastolic blood pressure 60 mm[Hg] Zayda Parker MANAGER ASSURANCE.WAREHOUSE UNLOADER Work Phone: [facility] 05-07-2024 09:29-0500 Systolic blood pressure 120 mm[Hg] Zayda Parker MANAGER ASSURANCE.WAREHOUSE UNLOADER Work Phone: [facility] 05-04-2024 14:37-0500 Body mass index (BMI) [Ratio] 31.93 kg/m2 Jamari Byrne MD Work Phone: [facility] 05-04-2024 14:37-0500 Body weight 76.66 kg Jamari Byrne MD Work Phone: [facility] 05-04-2024 14:37-0500 Diastolic blood pressure 76 mm[Hg] Jamari Byrne MD Work Phone: [facility] 05-04-2024 14:37-0500 Heart rate 95 /min Jamari Byrne MD Work Phone: [facility] 05-04-2024 14:37-0500 SaO2% (BldA) [Mass fraction] 98 % Jamari Byrne MD Work Phone: [facility] 05-04-2024 14:37-0500 Systolic blood pressure 118 mm[Hg] Jamari Byrne MD Work Phone: [facility] 05-03-2024 14:13-0500 Body mass index (BMI) [Ratio] 30.91 kg/m2 Kelsy Radha DO Work Phone: [facility] 05-03-2024 14:13-0500 Body weight 77.9 kg Kelsy Radha DO Work Phone: [facility] 05-03-2024 14:13-0500 Diastolic blood pressure 67 mm[Hg] Kelsy Radha DO Work Phone: [facility] 05-03-2024 14:13-0500 Heart rate 94 /min Kelsy Radha DO Work Phone: [facility] 05-03-2024 14:13-0500 Systolic blood pressure 101 mm[Hg] Kelsy Guillermo DO Work Phone: [facility] 04-28-2024 08:34-0500 Body height 154.9 cm Joanie Hurtado MANAGER ASSURANCE-WAREHOUSE UNLOADER Work Phone: [facility] 04-28-2024 08:34-0500 Body mass index (BMI) [Ratio] 32.06 kg/m2 Joanie Hurtado MANAGER ASSURANCE-WAREHOUSE UNLOADER Work Phone: [facility] 04-28-2024 08:34-0500 Body weight 76.97 kg Joanie Hurtado MANAGER ASSURANCE-WAREHOUSE UNLOADER Work Phone: [facility] 04-28-2024 08:34-0500 Diastolic blood pressure 82 mm[Hg] Joanie Hurtado MANAGER ASSURANCE-WAREHOUSE UNLOADER Work Phone: [facility] 04-28-2024 08:34-0500 Heart rate 104 /min Joanie Hurtado MANAGER ASSURANCE-WAREHOUSE UNLOADER Work Phone: [facility] 04-28-2024 08:34-0500 SaO2% (BldA) [Mass fraction] 97 % Joanie Hurtado MANAGER ASSURANCE-WAREHOUSE UNLOADER Work Phone: [facility] 04-28-2024 08:34-0500 Systolic blood pressure 140 mm[Hg] Joanie Hurtado MANAGER ASSURANCE-WAREHOUSE UNLOADER Work Phone: [facility] 04-18-2024 21:51-0500 Diastolic blood pressure 93 mm[Hg] Jamari Byrne MD Work Phone: [facility] 04-18-2024 21:51-0500 Heart rate 104 /min Jamari Byrne MD Work Phone: [facility] 04-18-2024 21:51-0500 Respiratory rate 18 /min Jamari Byrne MD Work Phone: [facility] 04-18-2024 21:51-0500 SaO2% (BldA) [Mass fraction] 98 % Jamari Byrne MD Work Phone: [facility] 04-18-2024 21:51-0500 Systolic blood pressure 133 mm[Hg] Jamari Byrne MD Work Phone: [facility] 04-18-2024 18:48-0500 Body height 154.9 cm Jamari Byrne MD Work Phone: [facility] 04-18-2024 18:48-0500 Body mass index (BMI) [Ratio] 32.88 kg/m2 Jmaari Byrne MD Work Phone: [facility] 04-18-2024 18:48-0500 Body temperature 98.29 [degF] Jamari Byrne MD Work Phone: [facility] 04-18-2024 18:48-0500 Body weight 78.93 kg Jamari Byrne MD Work Phone: [facility] 01-23-2024 16:00-0400 Body mass index (BMI) [Ratio] 30.45 kg/m2 Jamari Byrne MD Work Phone: [facility] 01-23-2024 16:00-0400 Body weight 75.52 kg Jamari Byrne MD Work Phone: [facility] 01-23-2024 16:00-0400 Diastolic blood pressure 70 mm[Hg] Jamari Byrne MD Work Phone: [facility] 01-23-2024 16:00-0400 Heart rate 98 /min Jamari Byrne MD Work Phone: [facility] 01-23-2024 16:00-0400 SaO2% (BldA) [Mass fraction] 98 % Jamari Byrne MD Work Phone: [facility] 01-23-2024 16:00-0400 Systolic blood pressure 110 mm[Hg] Jamari Byrne MD Work Phone: [facility] 12-25-2023 16:05-0400 Body height 157.5 cm Jamari Byrne MD Work Phone: [facility] 12-25-2023 16:05-0400 Body mass index (BMI) [Ratio] 31.18 kg/m2 Jamari Byrne MD Work Phone: [facility] 12-25-2023 16:05-0400 Body weight 77.34 kg Jamari Byrne MD Work Phone: [facility] 12-25-2023 16:05-0400 Diastolic blood pressure 70 mm[Hg] Jamari Byrne MD Work Phone: [facility] 12-25-2023 16:05-0400 Heart rate 87 /min Jamari Byrne MD Work Phone: [facility] 12-25-2023 16:05-0400 SaO2% (BldA) [Mass fraction] 97 % Jamari Byrne MD Work Phone: [facility] Comment on above: RA 12-25-2023 16:05-0400 Systolic blood pressure 112 mm[Hg] Jamari Byrne MD Work Phone: [facility] 09-15-2023 10:19-0400 Body mass index (BMI) [Ratio] 34.46 kg/m2 Jamari Byrne MD Work Phone: [facility] 09-15-2023 10:19-0400 Body temperature 98.1 [degF] Jamari Byrne MD Work Phone: [facility] 09-15-2023 10:19-0400 Body weight 86.68 kg Jamari Byrne MD Work Phone: [facility] 09-15-2023 10:19-0400 Diastolic blood pressure 80 mm[Hg] Jamari Byrne MD Work Phone: [facility] 09-15-2023 10:19-0400 Heart rate 110 /min Jamari Byrne MD Work Phone: [facility] 09-15-2023 10:19-0400 SaO2% (BldA) [Mass fraction] 100 % Jamari Byrne MD Work Phone: [facility] 09-15-2023 10:19-0400 Systolic blood pressure 124 mm[Hg] Jamari Byrne MD Work Phone: [facility] 08-19-2023 10:08-0400 Body temperature 98.1 [degF] Krislyn Aberegg PA Work Phone: [facility] 08-19-2023 10:08-0400 Body weight 89 kg Krislyn Aberegg PA Work Phone: [facility] 08-19-2023 10:08-0400 Diastolic blood pressure 80 mm[Hg] Krislyn Aberegg PA Work Phone: [facility] 08-19-2023 10:08-0400 Heart rate 100 /min Krislyn Aberegg PA Work Phone: [facility] 08-19-2023 10:08-0400 Respiratory rate 20 /min Krislyn Aberegg PA Work Phone: [facility] 08-19-2023 10:08-0400 SaO2% (BldA) [Mass fraction] 97 % Krislyn Aberegg PA Work Phone: [facility] 08-19-2023 10:08-0400 Systolic blood pressure 110 mm[Hg] Krislyn Aberegg PA Work Phone: [facility] 07-10-2023 10:27-0500 Body mass index (BMI) [Ratio] 34.07 kg/m2 Jamari Byrne MD Work Phone: [facility] 07-10-2023 10:27-0500 Body temperature 97.81 [degF] Jamari Byrne MD Work Phone: [facility] 07-10-2023 10:27-0500 Body weight 85.68 kg Jamari Byrne MD Work Phone: [facility] 07-10-2023 10:27-0500 Diastolic blood pressure 78 mm[Hg] Jamari Byrne MD Work Phone: [facility] 07-10-2023 10:27-0500 Heart rate 95 /min Jamari Byrne MD Work Phone: [facility] 07-10-2023 10:27-0500 SaO2% (BldA) [Mass fraction] 100 % Jamari Byrne MD Work Phone: [facility] 07-10-2023 10:27-0500 Systolic blood pressure 130 mm[Hg] Jamari Byrne MD Work Phone: [facility] 05-09-2023 11:11-0500 Body mass index (BMI) [Ratio] 35.07 kg/m2 Jamari Byrne MD Work Phone: [facility] 05-09-2023 11:11-0500 Body temperature 97.7 [degF] Jamari Byrne MD Work Phone: [facility] 05-09-2023 11:11-0500 Body weight 88.22 kg Jamari Byrne MD Work Phone: [facility] 05-09-2023 11:11-0500 Diastolic blood pressure 82 mm[Hg] Jamari Byrne MD Work Phone: [facility] 05-09-2023 11:11-0500 Heart rate 93 /min Jamari Byrne MD Work Phone: [facility] 05-09-2023 11:11-0500 SaO2% (BldA) [Mass fraction] 98 % Jamari Byrne MD Work Phone: [facility] 05-09-2023 11:11-0500 Systolic blood pressure 118 mm[Hg] Jamari Byrne MD Work Phone: [facility] 03-17-2023 11:08-0400 Body height 158.6 cm Jamari Byrne MD Work Phone: [facility] 03-17-2023 11:08-0400 Body mass index (BMI) [Ratio] 35.85 kg/m2 Jamari Byrne MD Work Phone: [facility] 03-17-2023 11:08-0400 Body weight 90.17 kg Jamari Byrne MD Work Phone: [facility] 03-17-2023 11:08-0400 Diastolic blood pressure 80 mm[Hg] Jamari Byrne MD Work Phone: [facility] 03-17-2023 11:08-0400 Heart rate 111 /min Jamari Byrne MD Work Phone: [facility] 03-17-2023 11:08-0400 Systolic blood pressure 110 mm[Hg] Jamari Byrne MD Work Phone: [facility] 12-13-2022 13:31-0400 Body height 158.6 cm Jamari Byrne MD Work Phone: [facility] 12-13-2022 13:31-0400 Body mass index (BMI) [Ratio] 36.77 kg/m2 Jamari Byrne MD Work Phone: [facility] 12-13-2022 13:31-0400 Body weight 92.49 kg Jamari Byrne MD Work Phone: [facility] 12-13-2022 13:31-0400 Diastolic blood pressure 80 mm[Hg] Jamari Byrne MD Work Phone: [facility] 12-13-2022 13:31-0400 Heart rate 104 /min Jamari Byrne MD Work Phone: [facility] 12-13-2022 13:31-0400 SaO2% (BldA) [Mass fraction] 97 % Jamari Byrne MD Work Phone: [facility] 12-13-2022 13:31-0400 Systolic blood pressure 118 mm[Hg] Jamari Byrne MD Work Phone: [facility] 08-17-2022 18:56-0500 Body height 160 cm Lazara Jon DO Work Phone: [facility] 08-17-2022 18:56-0500 Body mass index (BMI) [Ratio] 34.19 kg/m2 Lazara Jon DO Work Phone: [facility] 08-17-2022 18:56-0500 Body temperature 97.7 [degF] Lazara Jon DO Work Phone: [facility] 08-17-2022 18:56-0500 Body weight 87.54 kg Lazara Jon DO Work Phone: [facility] 08-17-2022 18:56-0500 Diastolic blood pressure 86 mm[Hg] Lazara Jon DO Work Phone: [facility] 08-17-2022 18:56-0500 Heart rate 96 /min Lazara Jon DO Work Phone: [facility] 08-17-2022 18:56-0500 Respiratory rate 16 /min Lazara Jon DO Work Phone: [facility] 08-17-2022 18:56-0500 SaO2% (BldA) [Mass fraction] 97 % Lazara Jon DO Work Phone: [facility] 08-17-2022 18:56-0500 Systolic blood pressure 126 mm[Hg] Lazara Jon DO Work Phone: [facility] 05-24-2022 10:15-0500 Body height 157.48 cm Jamari L Chavez Work Phone: [facility] Work Phone: 05-24-2022 10:15-0500 Body mass index (BMI) [Ratio] 32.92 kg/m2 Jamari L Chavez Work Phone: [facility] Work Phone: 05-24-2022 10:15-0500 Body surface area Derived from formula 1.83 m2 Jamari L Chavez Work Phone: [facility] Work Phone: 05-24-2022 10:15-0500 Body weight 81.64 kg Jamari L Chavez Work Phone: [facility] Work Phone: 05-24-2022 10:15-0500 Diastolic blood pressure 82 mm[Hg] Jamari L Chavez Work Phone: [facility] Work Phone: 05-24-2022 10:15-0500 Heart rate 94 /min Jamari L Chavez Work Phone: [facility] Work Phone: 05-24-2022 10:15-0500 Systolic blood pressure 100 mm[Hg] Jamari L Chavez Work Phone: [facility] Work Phone: 01-04-2022 13:47-0400 Body height 157.48 cm Jamari L Chavez Work Phone: [facility] Work Phone: 01-04-2022 13:47-0400 Body mass index (BMI) [Ratio] 30.91 kg/m2 Jamari L Chavez Work Phone: [facility] Work Phone: 01-04-2022 13:47-0400 Body surface area Derived from formula 1.78 m2 Jamari L Chavez Work Phone: [facility] Work Phone: 01-04-2022 13:47-0400 Body weight 76.65 kg Jamari L Chavez Work Phone: [facility] Work Phone: 01-04-2022 13:47-0400 Diastolic blood pressure 78 mm[Hg] Jamari L Chavez Work Phone: [facility] Work Phone: 01-04-2022 13:47-0400 Heart rate 80 /min Jamari L Chavez Work Phone: [facility] Work Phone: 01-04-2022 13:47-0400 Systolic blood pressure 108 mm[Hg] Jamari L Chavez Work Phone: [facility] Work Phone: 12-25-2021 08:36-0400 Body height 157.48 cm Jamari L Chavez Work Phone: [place] [id number] [place] Work Phone: 12-25-2021 08:36-0400 Body mass index (BMI) [Ratio] 30.36 kg/m2 Jamari L Chavez Work Phone: [place] [id number] [place] Work Phone: 12-25-2021 08:36-0400 Body surface area Derived from formula 1.77 m2 Jamari L Chavez Work Phone: [place] [id number] [place] Work Phone: 12-25-2021 08:36-0400 Body weight 75.3 kg Jamari L Chavez Work Phone: [place] [id number] [place] Work Phone: 12-25-2021 08:36-0400 Diastolic blood pressure 76 mm[Hg] Jamari L Chavez Work Phone: [place] [id number] [place] Work Phone: 12-25-2021 08:36-0400 Systolic blood pressure 116 mm[Hg] Jamari L Chavez Work Phone: [place] [id number] [place] Work Phone: 12-17-2021 09:02-0400 Body height 157.48 cm Jamari L Chavez Work Phone: [place] [id number] [place] Work Phone: 12-17-2021 09:02-0400 Body mass index (BMI) [Ratio] 30.44 kg/m2 Jamari L Chavez Work Phone: [employer] Work Phone: 12-17-2021 09:02-0400 Body surface area Derived from formula 1.77 m2 Jamari L Chavez Work Phone: [employer] Work Phone: 12-17-2021 09:02-0400 Body weight 75.5 kg Jamari L Chavez Work Phone: [place] [address] [address] [place] Work Phone: 12-17-2021 09:02-0400 Diastolic blood pressure 76 mm[Hg] Jamari L Chavez Work Phone: [place] [address] [address] [place] Work Phone: 12-17-2021 09:02-0400 Systolic blood pressure 112 mm[Hg] Jamari L Chavez Work Phone: [employer] Work Phone: 11-26-2021 09:02-0400 Body height 157.48 cm Jamari L Chavez Work Phone: [employer] Work Phone: 11-26-2021 09:02-0400 Body mass index (BMI) [Ratio] 31.09 kg/m2 Jamari L Chavez Work Phone: [employer] Work Phone: 11-26-2021 09:02-0400 Body surface area Derived from formula 1.78 m2 Jamari L Chavez Work Phone: [employer] Work Phone: 11-26-2021 09:02-0400 Body weight 77.11 kg Jamari L Chavez Work Phone: [address] Work Phone: 11-26-2021 09:02-0400 Diastolic blood pressure 82 mm[Hg] Jamari L Chavez Work Phone: [address] Work Phone: 11-26-2021 09:02-0400 Systolic blood pressure 118 mm[Hg] Jamari L Chavez Work Phone: [address] Work Phone: 11-12-2021 10:17-0400 Body height 159.5 cm Jamari L Chavez Work Phone: [facility] Work Phone: 11-12-2021 10:17-0400 Body mass index (BMI) [Ratio] 30.95 kg/m2 Jamari L Chavez Work Phone: [facility] Work Phone: 11-12-2021 10:17-0400 Body surface area Derived from formula 1.82 m2 Jamari L Chavez Work Phone: [facility] Work Phone: 11-12-2021 10:17-0400 Body weight 78.74 kg Jamari L Chavez Work Phone: [facility] Work Phone: 11-12-2021 10:17-0400 Diastolic blood pressure 70 mm[Hg] Jamari L Chavez Work Phone: [facility] Work Phone: 11-12-2021 10:17-0400 Heart rate 95 /min Jamari L Chavez Work Phone: [facility] Work Phone: 11-12-2021 10:17-0400 Systolic blood pressure 104 mm[Hg] Jamari L Chavez Work Phone: [facility] Work Phone: 01-04-2021 10:07-0400 Body height 159.99 cm Rich L Oberhauser Work Phone: [facility] Work Phone: 01-04-2021 10:07-0400 Body mass index (BMI) [Ratio] 32.96 kg/m2 Rich L Oberhauser Work Phone: [facility] Work Phone: 01-04-2021 10:07-0400 Body surface area Derived from formula 1.87 m2 Rich L Oberhauser Work Phone: [facility] Work Phone: 01-04-2021 10:07-0400 Body temperature 97.9 [degF] Rich L Oberhauser Work Phone: [facility] Work Phone: 01-04-2021 10:07-0400 Body weight 84.37 kg Rich L Oberhauser Work Phone: [facility] Work Phone: 01-04-2021 10:07-0400 Diastolic blood pressure 79 mm[Hg] Rich L Oberhauser Work Phone: [facility] Work Phone: 01-04-2021 10:07-0400 Heart rate 100 /min Rich L Oberhauser Work Phone: [facility] Work Phone: 01-04-2021 10:07-0400 Systolic blood pressure 125 mm[Hg] Rich L Oberhauser Work Phone: [facility] Work Phone: 11-02-2020 15:58-0400 Body height 159.99 cm Rich L Oberhauser Work Phone: [facility] Work Phone: 11-02-2020 15:58-0400 Body mass index (BMI) [Ratio] 32.96 kg/m2 Rich L Oberhauser Work Phone: [facility] Work Phone: 11-02-2020 15:58-0400 Body surface area Derived from formula 1.87 m2 Rich L Oberhauser Work Phone: [facility] Work Phone: 11-02-2020 15:58-0400 Body temperature 97.8 [degF] Rich L Oberhauser Work Phone: [facility] Work Phone: 11-02-2020 15:58-0400 Body weight 84.37 kg Rich L Oberhauser Work Phone: [facility] Work Phone: 11-02-2020 15:58-0400 Diastolic blood pressure 77 mm[Hg] Rich L Oberhauser Work Phone: [facility] Work Phone: 11-02-2020 15:58-0400 Heart rate 106 /min Rich L Oberhauser Work Phone: [facility] Work Phone: 11-02-2020 15:58-0400 Systolic blood pressure 120 mm[Hg] Rich L Oberhauser Work Phone: [facility] Work Phone: 10-24-2020 04:00-0400 Diastolic blood pressure 76 mm[Hg] Rich Oberhauser Other Phone: [facility] 10-24-2020 04:00-0400 Heart rate 96 /min Rich Oberhauser Other Phone: [facility] 10-24-2020 04:00-0400 Respiratory rate 18 /min Rich Ng Other Phone: [facility] 10-24-2020 04:00-0400 SaO2% (BldA) [Mass fraction] 95 % Rich Ng Other Phone: [facility] 10-24-2020 04:00-0400 Systolic blood pressure 115 mm[Hg] Rich Ng Other Phone: [facility] 12-08-2019 08:09-0400 BMI (Body Mass Index) 29.23 kg/m2 [facility] 12-08-2019 08:09-0400 Body weight 74.84 kg [facility] 12-08-2019 08:09-0400 BP Diastolic 82 mm[Hg] [facility] 12-08-2019 08:09-0400 BP Systolic 128 mm[Hg] [facility] 12-08-2019 08:09-0400 Height 160 cm [facility] 12-08-2019 08:09-0400 Pulse (Heart Rate) 103 /min [facility] 12-08-2019 08:09-0400 Pulse Oximetry 97 % [facility] 12-08-2019 08:09-0400 Respiratory Rate 16 /min [facility] 09-29-2019 17:47-0400 BMI (Body Mass Index) 28.18 kg/m2 Rich Ng [facility] Work Phone: 09-29-2019 17:47-0400 Body Temperature 98.5 [degF] Rich Ng [facility] Work Phone: 09-29-2019 17:47-0400 Body weight 72.12 kg Rich Ng [facility] Work Phone: 09-29-2019 17:47-0400 BP Diastolic 93 mm[Hg] Rich Ng [facility] Work Phone: 09-29-2019 17:47-0400 BP Systolic 136 mm[Hg] Rich Ng [facility] Work Phone: 09-29-2019 17:47-0400 BSA (Body Surface Area) 1.75 m2 Rich Ng [facility] Work Phone: 09-29-2019 17:47-0400 Height 159.99 cm Rich Ng [facility] Work Phone: 09-29-2019 17:47-0400 Pulse (Heart Rate) 101 /min Rich Ng [facility] Work Phone: 09-27-2019 16:07-0400 BMI (Body Mass Index) 28.17 kg/m2 Rich Ng [facility] Work Phone: 09-27-2019 16:07-0400 Body weight 72.12 kg Rich Ng [facility] Work Phone: 09-27-2019 16:07-0400 BP Diastolic 78 mm[Hg] Rich Ng [facility] Work Phone: 09-27-2019 16:07-0400 BP Systolic 128 mm[Hg] Rich Ng [facility] Work Phone: 09-27-2019 16:07-0400 BSA (Body Surface Area) 1.75 m2 Rich Ng [facility] Work Phone: 09-27-2019 16:07-0400 Height 160 cm Rich Ng [facility] Work Phone: 05-19-2019 11:48-0500 BMI (Body Mass Index) 29.8 kg/m2 Jun[facility] [address] Work Phone: 05-19-2019 11:48-0500 Body weight 76.3 kg Juno [facility] [address] Work Phone: 05-19-2019 11:48-0500 BP Diastolic 70 mm[Hg] Juno Gabriel-[facility] [address] Work Phone: 05-19-2019 11:48-0500 BP Systolic 110 mm[Hg] Juno Dubonlan d [address] Work Phone: 05-19-2019 11:48-0500 BSA (Body Surface Area) 1.8 m2 Juno Orourke [address] Work Phone: 05-19-2019 11:48-0500 Height 160.02 cm Juno De Leon d [address] Work Phone: 05-13-2019 16:36-0500 BMI (Body Mass Index) 24.88 kg/m2 Juno Orourke [address] Work Phone: 05-13-2019 16:36-0500 Body weight 63.7 kg Juno elise [address] Work Phone: 05-13-2019 16:36-0500 BP Diastolic 68 mm[Hg] Juno De Leon d [address] Work Phone: 05-13-2019 16:36-0500 BP Systolic 100 mm[Hg] Juno elise [address] Work Phone: 05-13-2019 16:36-0500 BSA (Body Surface Area) 1.66 m2 Juno Orourke [address] Work Phone: 05-13-2019 16:36-0500 Height 160.02 cm Juno Dubonlan d [address] Work Phone: 03-21-2019 22:15-0400 BMI (Body Mass Index) 27.63 kg/m2 [facility] 03-21-2019 22:15-0400 Body weight 70.76 kg [facility] 03-21-2019 22:15-0400 Height 160 cm [facility] 03-21-2019 22:13-0400 Body Temperature 98.91 [degF] [facility] 03-21-2019 22:13-0400 BP Diastolic 77 mm[Hg] [facility] 03-21-2019 22:13-0400 BP Systolic 114 mm[Hg] [facility] 03-21-2019 22:13-0400 Pulse (Heart Rate) 84 /min [facility] 03-21-2019 22:13-0400 Pulse Oximetry 98 % [facility] 03-21-2019 22:13-0400 Respiratory Rate 18 /min [facility] 03-11-2019 10:55-0400 Body Temperature 98.49 [degF] [facility] 03-11-2019 10:55-0400 BP Diastolic 65 mm[Hg] [facility] 03-11-2019 10:55-0400 BP Systolic 119 mm[Hg] [facility] 03-11-2019 10:55-0400 Pulse (Heart Rate) 78 /min [facility] 03-11-2019 10:55-0400 Pulse Oximetry 97 % [facility] 03-11-2019 10:55-0400 Respiratory Rate 16 /min [facility] 03-11-2019 10:53-0400 BMI (Body Mass Index) 27.63 kg/m2 [facility] 03-11-2019 10:53-0400 Body weight 70.[address] [facility] 03-11-2019 10:53-[address] [facility] 02-10-2019 19:22-0400 BP Diastolic 86 mm[Hg] [facility] 02-10-2019 19:22-0400 BP Systolic 123 mm[Hg] [facility] 02-10-2019 19:22-0400 Pulse (Heart Rate) 86 /min [facility] 02-10-2019 19:22-0400 Pulse Oximetry 97 % [facility] 02-10-2019 19:22-0400 Respiratory Rate 16 /min [facility] 02-10-2019 17:11-0400 Body Temperature 97.3 [degF] Lloyd Quiles [facility] 10-07-2018 01:36-0400 Body Temperature 98.01 [degF] [facility] 01:36-0400 BP Diastolic 73 mm[Hg] [facility] 10-07-2018 01:36-0400 BP Systolic 113 mm[Hg] [facility] 10-07-2018 01:36-0400 Pulse (Heart Rate) 85 /min [facility] 10-07-2018 01:36-0400 Pulse Oximetry 97 % [facility] 10-07-2018 01:36-0400 Respiratory Rate 18 /min [facility] 10-06-2018 23:01-0400 BMI (Body Mass Index) 31.53 kg/m2 [facility] 10-06-2018 23:01-0400 Body weight 80.74 kg [facility] 10-06-2018 23:01-0400 Height 160 cm [facility] 10-05-2018 00:24-0400 Body Temperature 98.29 [degF] [facility] 10-05-2018 00:24-0400 BP Diastolic 90 mm[Hg] [facility] 10-05-2018 00:24-0400 BP Systolic 141 mm[Hg] [facility] 10-05-2018 00:24-0400 Pulse (Heart Rate) 82 /min [facility] 10-05-2018 00:24-0400 Pulse Oximetry 97 % [facility] 10-05-2018 00:24-0400 Respiratory Rate 20 /min [facility] 10-04-2018 21:38-0400 Respiratory rate 16 /min [facility] 10-04-2018 19:31-0400 BMI (Body Mass Index) 31.53 kg/m2 [facility] 10-04-2018 19:31-0400 [facility] 10-04-2018 19:31-[address] [facility] 09-12-2018 23:29-0400 Pulse (Heart Rate) 113 /min [facility] 09-12-2018 23:29-0400 Pulse Oximetry 97 % [facility] 09-12-2018 23:16-0400 Body Temperature 98.49 [degF] [facility] 09-12-2018 22:34-0400 BP Diastolic 66 mm[Hg] [facility] 09-12-2018 22:34-0400 BP Systolic 117 mm[Hg] [facility] 09-12-2018 22:34-0400 Respiratory Rate 16 /min [facility] 09-12-2018 21:16-0400 BMI (Body Mass Index) 31 kg/m2 [facility] 09-12-2018 21:16-0400 Height 160 cm [facility] 09-12-2018 21:16-0400 Weight 79.38 kg [facility] Comment on above: [facility] 02-01-2018 21:30-0400 Body temperature 37.0 Celsius [facility] Comment on above: Performed By: #### VBG #### Unless otherwise noted, all testing performed by [place] [id number] CLIA: [id number] Paper Reeler: Cristofer Perry M.D. Encounters Encounter Date Encounter Type Care Provider Facility Start: 01-21-2025 [facility]counter for other [facility]ced[facility] Start: 01-20-2025 End: 01-21-2025 Emergency department patient visit Dr. 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, 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, 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 long-term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 (HCC) (Primary Dx) Start: 01-20-2025 End: 01-20-2025 ambulatory KELSY GUILLERMO Facility:[facility] Start: 01-19-2025 End: 01-19-2025 Patient encounter procedure Whit Schulte MD Work Phone: OB/Gynecology Comment on above: care and examination (HCC) (Primary Dx); Request for sterilization; Pre-op exam Start: 01-19-2025 End: 01-19-2025 Preprocedural examination done Whit Schulte MD Work Phone: [facility] Start: 01-19-2025 End: 01-19-2025 ambulatory WHIT SCHULTE Facility:[facility] Start: 01-19-2025 Encounter for other preprocedural examination WHIT SCHULTE [facility] Start: 12-31-2024 End: 12-31-2024 ambulatory Chava Fv [facility] L[facility]D Work Phone: [facility] 3 L&D Comment on above: [employer] Start: 12-31-2024 End: 12-31-2024 E-mail encounter from caregiver Chava Fv Ob L[facility]D Work Phone: [facility] 3 L&D Start: 12-21-2024 End: 12-21-2024 Patient encounter procedure William Gramajo MD Work Phone: OB/Gynecology Comment on above: care and examination immediately after delivery (HCC) (Primary Dx) Start: 12-21-2024 End: 12-21-2024 ambulatory WILLIAM GRAMAJO Facility:[facility] Start: 12-16-2024 End: 12-16-2024 ambulatory [...] management of inpatient Dr. William Gramajo MD -[facility] Work Phone: Start: 12-06-2024 End: 12-06-2024 Telephone encounter Kelsy Guillermo DO Work Phone: Endocrinology Comment on above: Blood Sugar Reading Start: 12-06-2024 End: 12-06-2024 Patient encounter procedure Whi Tech 1 [employer] [facility] Comment on above: Pre-existing type 2 diabetes mellitus in in first trimester (HCC) (Primary Dx); 38 weeks gestation of (HCC) Pre-existing type 2 diabetes mellitus in in third trimester (HCC) (Primary Dx); Supervision of high risk in third trimester ([facility]); History of pre-eclampsia; H/O macrosomia in infant in prior , currently ([facility]); 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 Start: 12-06-2024 ambulatory Jamari Byrne Facility: [facility] Start: 12-02-2024 End: 12-02-2024 E-mail encounter [...] 11-30-2024 Patient encounter procedure Whi Tech 1 [employer] [facility] Comment on above: Pre-existing type 2 diabetes mellitus in in third trimester (HCC) (Primary Dx); Pre-existing type 2 diabetes mellitus in in first trimester (HCC) Start: 11-30-2024 End: 11-30-2024 ambulatory PIPER JULIAN Facility:[facility] Start: 11-25-2024 End: 11-25-2024 Telephone [...] Start: 11-25-2024 End: 11-25-2024 ambulatory PIPER JULIAN Facility:[facility] Start: 11-22-2024 End: 01-22-2025 Follow-up encounter Lucy Mariscal APRN.CNP Work Phone: OB/Gynecology Start: 11-22-2024 End: 11-22-2024 Patient encounter procedure Red-M [employer] 1 [employer] [facility] Comment on above: Obesity affecting pr egnancy in first trimester, unspecified obesity type (HCC) (Primary Dx); Pre-existing type 2 diabetes mellitus in in first trimester (HCC) Start: 11-22-2024 End: 11-22-2024 ambulatory PIPER JULIAN Facility:[facility] Start: 11-18-2024 End: 11-18-2024 Patient encounter procedure Keshav Loving MD Work Phone: OB/Gynecology Comment on above: Pre-existing type 2 diabetes mellitus in in third trimester (HCC) (Primary Dx); 35 weeks gestation of (HCC); Vaginal itching Start: 11-18-2024 End: 11-18-2024 ambulatory KESHAV LOVING Facility:[facility] Start: 11-16-2024 End: 11-16-2024 Telephone encounter Kelsy Guillermo DO Work Phone: Endocrinology Comment on above: Blood Sugar Reading Start: 11-15-2024 End: 11-15-[address] Jamari Byrne MD Work Phone: [facility] Work Phone: Start: 11-15-2024 End: 11-15-[address] Whit Patel [facility] [place] Work Phone: Start: 11-15-2024 End: 11-15-2024 Patient encounter procedure Keshav Loving MD Work Phone: OB/Gynecology Comment on above: Pre-existing type 2 diabetes mellitus in in third trimester (HCC) (Primary Dx); 35 weeks gestation of ([facility]); Supervision of high risk in third trimester (HCC) Pre-existing type 2 diabetes mellitus in in first trimester (HCC) (Primary Dx); 35 weeks gestation of ([facility]) Start: 11-15-2024 End: 11-15-2024 ambulatory PIPER JULIAN Facility: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 Start: 11-08-2024 End: 01-08-2025 Follow-up encounter Krys Kulkarni MD Work Phone: OB/Gynecology Start: 11-08-2024 End: 11-08-2024 Patient encounter procedure Whi Tech 1 [employer] [facility] Comment on above: Pre-existing type 2 diabetes mellitus in in first trimester (HCC) (Primary Dx); 34 weeks gestation of (HCC) Start: 11-08-2024 End: 11-08-2024 ambulatory PIPER JULIAN Facility:[facility] Start: 11-05-2024 End: 11-05-2024 ambulatory KRYS KULKARNI Facility:[facility] Start: 11-05-2024 End: 11-05-2024 Initial preventive medicine new pt age 12-17 yr Krys Kulkarni MD Work Phone: OB/Gynecology Comment on above: 33 weeks gestation o f (HCC) (Primary Dx); complication before (HCC); Pre-existing type 2 diabetes mellitus in in third trimester (HCC); Supervision of high risk in third trimester ([facility]); pruritus, third trimester (HCC) Start: 11-05-2024 End: 11-05-2024 ambulatory JAMARI BYRNE Facility:[facility] Start: 11-04-2024 End: 11-04-2024 Subsequent hospital visit by physician Chava Mcdonald Ob L&D Work Phone: OB/Gynecology Comment on above: complicati on before (HCC) [O99.891] Start: 11-04-2024 End: 11-04-[address] RD Work Phone: Endocrinology Comment on above: Medical Nutrition Th jones Start: 11-04-2024 End: 11-04-2024 Patient encounter procedure Kelsy Guillermo DO Work Phone: Endocrinology Comment on above: Type 2 diabetes lazaro itus affecting in third trimester, antepartum (HCC) (Primary Dx); High-risk , third trimester (HCC) Start: 11-04-2024 End: 11-04-[address] Work Phone: Endocrinology Start: 11-02-2024 End: 01-02-2025 Follow-up encounter William Gramajo MD Work Phone: OB/Gynecology Start: 11-02-2024 End: 11-03-2024 Telephone encounter Piper Julian MD Work Phone: OB/Gynecology Start: 11-02-2024 End: 11-02-2024 Patient encounter procedure Whi Tech 1 [employer] [facility] Comment on above: Pre-existing type 2 diabetes mellitus in in first trimester (HCC) (Primary Dx); Obesity affecting in first trimester, unspecified obesity type (HCC); 33 weeks gestation of ([facility]) Pre-existing type 2 diabetes mellitus in in third trimester (HCC) (Primary Dx); History of pre-eclampsia; H/O macrosomia in infant in prior , currently (HCC); 33 weeks gestation of ([facility]); Request for sterilization; Herpes simplex type 2 (HSV-2) infection affecting , antepartum, unspecified trimester ([facility]) Start: 11-02-2024 End: 11-02-2024 ambulatory WILLIAM GRAMAJO Facility:[facility] Start: 10-29-2024 End: 11-22-2024 Follow-up encounter Piper Julian MD Work Phone: OB/Gynecology Start: 10-29-2024 End: 11-03-2024 Telephone encounter Piper Julian MD Work Phone: OB/Gynecology Comment on above: Breast Pump Start: 10-28-2024 End: 10-28-2024 ambulatory PIPER JULIAN Facility:[facility] Start: 10-25-2024 End: 10-25-2024 ambulatory PIPER JULIAN Facility:[facility] Start: 10-25-2024 End: 10-25-2024 Patient encounter procedure Piper Julian MD Work Phone: OB/Gynecology Comment on above: Supervision of high risk in third trimester (HCC) (Primary Dx); Pre-existing type 2 diabetes mellitus in in third trimester (HCC); Exposure to parvovirus; History of pre-eclampsia Start: 10-25-2024 End: 10-25-2024 ambulatory PIPER JULIAN Facility:[facility] Start: 10-20-2024 End: 10-20-2024 ambulatory Piper Julian MD Work Phone: OB/Gynecology Comment on above: results Start: 10-20-2024 End: 10-20-2024 E-mail encounter from caregiver Piper Julian MD Work Phone: OB/Gynecology Start: 10-19-2024 End: 10-19-2024 Telephone encounter Kelsy Guillermo DO Work Phone: Endocrinology Comment on above: Blood Sugar Reading Start: 10-18-2024 End: 10-18-2024 E-mail encounter from caregiver [facility] Work Phone: [facility] Start: 10-18-2024 End: 10-18-2024 Patient encounter procedure Whit Schulte MD Work Phone: OB/Gynecology Comment on above: Supervision of high risk in third trimester (HCC) (Primary Dx); Pre-existing type 2 diabetes mellitus in in third trimester (HCC); Herpes simplex type 2 (HSV-2) infection affecting , antepartum, unspecified trimester ([facility]); H/O macrosomia in infant in prior , currently ([facility]); History of pre-eclampsia; 31 weeks gestation of (HCC) Start: 10-18-2024 End: 10-18-2024 ambulatory [facility] Work Phone: [facility] Comment on above: M-Power Time to Jose A shoemaker Start: 10-16-2024 End: 10-16-[address] 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 Start: 09-29-2024 End: 11-29-2024 Follow-up [...] ambulatory Dr. Jamari Byrne MD Work Phone: [facility] Work Phone: Start: 09-24-2024 End: 09-24-2024 Patient encounter procedure Leonie Waldron [facility] Work Phone: Start: 09-24-2024 End: 09-24-2024 Patient encounter procedure Mary GOODWIN Work Phone: [facility] Comment on above: Procedure not gisselle d out (Primary Dx) Start: 09-24-2024 End: 09-24-2024 ambulatory LEONIE WALDRON Facility:[facility] Start: 09-23-2024 End: 09-24-2024 Refill Kelsy Guillermo DO Work Phone: Endocrinology Comment on above: Refill Request Start: 09-20-2024 End: 11-20-2024 Follow-up encounter Kelsy Guillermo DO Work Phone: Endocrinology Start: 09-20-2024 End: 09-20-2024 ambulatory KELSY GUILLERMO Facility:[facility] Start: 09-20-2024 End: 09-20-2024 Patient encounter procedure Kelsy Guillermo DO Work Phone: Endocrinology Comment on above: Type 2 diabetes lazaro itus during , antepartum, third trimester (HCC) (Primary Dx); Insulin controlled gestational diabetes mellitus (GDM) in first trimester (HCC); High-risk , third trimester (HCC) Start: 09-14-2024 End: 09-14-2024 E-mail encounter from caregiver Chava Mcdonald Ob L&D Work Phone: [facility] 3 L&D Start: 09-14-2024 End: 09-14-2024 Patient encounter procedure Chvaa Mcdonald Ob L&D Work Phone: [facility] 3 L&D Comment on above: M-Power Referral Start: 09-13-2024 End: 09-13-2024 Orders Only Tiana Hutchinson RN OB/Gynecology Comment on above: complicati on before (HCC) (Primary Dx) Start: 09-11-2024 End: 09-11-2024 Telephone encounter Kelsy Guillermo DO Work Phone: Endocrinology Comment on above: Blood Sugar Reading Start: 09-09-2024 End: 11-09-2024 Follow-up encounter Piper Julian MD Work Phone: OB/Gynecology Start: 09-08-2024 End: 09-08-2024 ambulatory RONALDO RUBIO Facility:[facility] Start: 09-07-2024 End: 10-20-2024 Telephone encounter Kelsy Guillermo DO Work Phone: Endocrinology Comment on above: Blood Sugar Reading Patient Question Start: 09-07-2024 End: 09-07-2024 ambulatory PIPER JULIAN Facility: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 Start: 09-02-2024 End: 09-02-2024 Patient encounter procedure Whi Tech 1 Currency Examiner [facility] Maternal Medicine Comment on [...] your call Start: 08-10-2024 End: 08-10-2024 ambulatory POOJA LATHAM Facility:[facility] Start: 08-10-2024 End: 08-10-2024 Patient encounter procedure Whi Tech 1 Currency Examiner [facility] Maternal Medicine Comment on [...] Sugar Reading Start: 07-26-2024 End: 07-26-2024 ambulatory KELSY GUILLERMO Facility:[facility] Start: 07-26-2024 End: 07-26-2024 Patient encounter procedure Kelsy Guillermo DO Work Phone: Endocrinology Comment on above: Type 2 diabetes lazaro itus complicating , antepartum, second trimester (Primary Dx); Insulin controlled gestational diabetes mellitus (GDM) in first trimester; High-risk , second trimester Start: 07-23-2024 End: 07-23-2024 ambulatory WILLIAM GRAMAJO Facility:[facility] Start: 07-23-2024 End: 07-23-2024 Patient [...] Sugar Reading Start: 07-13-2024 End: 07-13-2024 ambulatory ZAYDA PARKER Facility:[facility] Start: 07-13-2024 End: 07-13-2024 Patient encounter procedure Whi Tech 1 Currency Examiner [facility] Maternal Medicine Comment on [...] patient visit Sixto Myers MD Work Phone: [facility] Comment on above: Influenza A [...] End: 06-16-2024 Telemedicine consultation with patient Carrie Lirianocorinne NARVAEZ Work Phone: Endocrinology Start: 06-15-2024 End: 06-15-2024 ambulatory POOJA LATHAM Facility:[facility] Start: 06-15-2024 End: 06-15-2024 Patient encounter procedure Whi Tech 1 Currency Examiner [facility] Maternal Medicine Comment on above: Encounter for nazraymond shook screening for malformation using ultrasound (Primary Dx); 13 weeks gestation of H/O macrosomia in in [place] in prior , currently ; Pre-existing type 2 diabetes mellitus in in first trimester; History of pre-eclampsia Start: 06-15-2024 End: 06-15-2024 ambulatory ZAYDA PARKER Facility:[facility] Start: 06-12-2024 End: 06-14-2024 ambulatory Kelsy L Radha DO Work Phone: Endocrinology Comment on above: Glucose monitor Start: 06-11-2024 End: 06-11-2024 Telephone encounter Kelsy Guillermo DO Work Phone: Endocrinology Comment on above: Blood Sugar Reading Start: 06-07-2024 End: 06-07-2024 ambulatory KELSY GUILLERMO Facility:[facility] Start: 06-07-2024 End: 06-07-2024 Patient [...] Sugar Reading Start: 05-26-2024 End: 05-26-2024 ambulatory KRYS KULKARNI Facility:[facility] Start: 05-26-2024 End: 05-26-2024 Office [...] patient visit Reza Dyer DO Work Phone: [facility] Comment on above: Abdominal pain durin g in first trimester ([facility]) (Primary Dx) Start: 05-20-2024 End: 05-25-2024 [...] Start: 05-10-2024 End: 05-10-2024 Telephone encounter Zayda Keith WEATHERS.WAREHOUSE UNLOADER Work Phone: OB/Gynecology Comment on above: Results Start: 05-09-2024 End: 05-09-2024 Telephone encounter Kelsy Guillermo DO Work Phone: Endocrinology Comment on above: Blood Sugar Reading Start: 05-07-2024 End: 05-07-2024 ambulatory ZAYDA PARKER Facility:[facility] Start: 05-07-2024 End: 05-07-2024 Patient encounter procedure Zayda Parker APRN.WAREHOUSE UNLOADER Work Phone: OB/Gynecology Comment on above: Encounter for superv ision of high risk in first trimester, antepartum (Primary Dx); 7 weeks gestation of ; with uncertain dates in first trimester; Unplanned ; Obesity affecting in first trimester, unspecified obesity type; Lost custody of children; UTI (urinary tract infection) in , antepartum; History of herpes genitalis; H/O macrosomia in in prior , currently [...] cervical cancer Start: 05-04-2024 End: 05-04-2024 ambulatory [facility] Ambulatory Start: 05-04-2024 End: 05-04-2024 Office outpatient visit 15 minutes Jamari Byrne MD Work Phone: [facility] Comment on above: Bipolar depression ( Multi) (Primary Dx); Hyperglycemia due to diabetes mellitus (Multi); Cigarette nicotine dependence with other nicotine-induced disorder Start: 05-03-2024 End: 05-03-2024 ambulatory KELSY GUILLERMO Facility:[facility] Start: 05-03-2024 End: 05-03-2024 Patient encounter procedure Kelsy Guillermo DO Work Phone: Endocrinology Comment on above: Type 2 diabetes lazaro itus complicating , antepartum, first trimester (Primary Dx); Insulin controlled gestational diabetes mellitus (GDM) in first trimester; High-risk , first trimester Start: 05-03-2024 End: 05-07-2024 Telephone encounter Ana Sawyer RENAL MEDICINE SPECIALIST Navigation Comment on above: Social Work Services depression in pregna ncy Start: 04-30-2024 End: 04-30-2024 ambulatory Tee Li RN NURSE PAINT LINE OPERATOR Comment on above: Blood Sugar Elevatio n (/) Start: 04-28-2024 End: 04-28-2024 Office outpatient visit 25 minutes Joanie Hurtado APRN-WAREHOUSE UNLOADER Work Phone: [facility] Comment on above: Bacterial vaginosis (Primary Dx); Less than 8 weeks gestation of ([facility]) Start: 04-28-2024 End: 04-28-[address] [facility] Ambulatory Start: 04-23-2024 End: 04-23-2024 Telephone encounter Kelsy Guillermo DO Work Phone: Endocrinology Start: 04-19-2024 End: 04-19-2024 Telephone encounter Zayda Parker APRN.WAREHOUSE UNLOADER Work Phone: OB/Gynecology Comment on above: Patient Update (ER v isit) Start: 04-18-2024 End: 04-18-2024 Emergency department patient visit JAMARI BYRNE [facility] Comment on above: Urinary tract infect ion in mother during first trimester of ([facility]) (Primary Dx); Herpes simplex vulvovaginitis Start: 04-17-2024 End: 04-17-[facility] Start: 04-14-2024 End: 04-15-2024 Emergency department patient visit MILLY HOLLIDAY [facility] Start: 04-14-2024 End: 04-15-2024 Telephone encounter Nurse Currency Examiner [facility] Work Phone: Obstetrics/Gynecology Comment on above: Care Coordination Start: 02-26-2024 End: 02-26-2024 ambulatory No Primary Care Physician Facility:[facility] Start: 01-23-2024 End: 01-23-2024 Office outpatient visit 15 minutes Jamari Byrne MD Work Phone: [facility] Comment on above: Exercise-induced ast hma ([facility]) (Primary Dx); Hyperglycemia due to diabetes mellitus (Multi); Bipolar depression (Multi); Necrobiosis lipoidica Start: 01-23-2024 End: 01-23-2024 ambulatory [facility] Ambulatory Start: 12-25-2023 End: 12-25-2023 Office outpatient visit 15 minutes Jamari Byrne MD Work Phone: [facility] Comment on above: Necrobiosis lipoidic a (Primary Dx); Hyperglycemia due to diabetes mellitus (Multi) Start: 12-25-2023 End: 12-25-2023 ambulatory [facility] Start: 12-16-2023 End: 12-16-2023 ambulatory [facility] Start: 09-15-2023 End: 09-15-2023 Office outpatient visit 25 minutes Jamari Byrne MD Work Phone: [facility] Comment on above: Sebaceous cyst (Prim stephen Dx); Hyperglycemia due to diabetes mellitus (CMS/HCC); Exercise-induced asthma Start: 09-15-2023 End: 09-15-2023 ambulatory [facility] Start: 08-19-2023 End: 08-19-2023 Patient encounter procedure Mary GOODWIN Work Phone: [facility] Comment on above: Pain, dental (Primar y Dx) Start: 07-10-2023 End: 07-10-2023 Office outpatient visit 15 minutes Jamari Byrne MD Work Phone: [facility] Comment on above: Necrobiosis lipoidic a (Primary Dx); Hyperglycemia due to diabetes mellitus (CMS/HCC) Start: 05-09-2023 End: 05-09-2023 Office outpatient visit 15 minutes Jamari Byrne MD Work Phone: [facility] Comment on above: Hyperglycemia due to diabetes mellitus ([facility]) Start: 03-17-2023 End: 03-17-2023 Office outpatient visit 15 minutes Jamari Byrne MD Work Phone: [facility] Comment on above: Exercise-induced ast hma (Primary Dx); Hyperglycemia due to diabetes mellitus ([facility]/HCC) Start: 12-13-2022 End: 12-13-2022 Office outpatient visit 25 minutes Jamari Byrne MD Work Phone: [facility] Comment on above: Hyperglycemia due to diabetes mellitus ([facility]) Start: 11-27-2022 ambulatory MD JEANIE SUTTON Facility:[id number] Start: 08-17-2022 End: 08-17-2022 ambulatory MARSHALL [facility] Start: 08-17-2022 End: 08-17-2022 Office outpatient visit 25 minutes Lazara Jon DO Work Phone: [facility] Comment on above: Yeast vaginitis (Verito tee Dx); Late menses; Vaginal discharge Start: 05-24-2022 Office outpatient vi sit 15 minutes Jamari Byrne Work Phone: [facility] Work Phone: Start: 05-24-[address] Jamari Burrell Facility:[id number] Start: 02-22-[address] Jamari Burrell Facility:[id number] Start: 01-04-2022 Office outpatient vi sit 10 minutes Jamari Byrne Work Phone: [facility] Work Phone: Start: 01-04-2022 ambulatory Elie Collins Facility: [id number] Start: 12-25-2021 Office outpatient vi sit 15 minutes Jamari L Chavez Work Phone: [facility] [address] Work Phone: Start: 12-25-2021 ambulatory MD JEANIE NAYAK CIA SUTTON Facility:[id number] Start: 12-17-2021 Office outpatient vi sit 15 minutes Jamari L Chavez Work Phone: [place] [address] [address] [place] Work Phone: Start: 12-17-2021 ambulatory MD JEANIE NAYAK CIA SUTTON Facility:[id number] Start: 12-10-2021 Chart Update Jamari L Robbie r Work Phone: [facility] [address] Work Phone: Start: 11-27-2021 Chart Update Jamari L Robbie r Work Phone: [facility] [address] Work Phone: Start: 11-26-2021 Initial preventive medicine new pt age 18-39yrs Jamari L Chavez Work Phone: [facility] [address] Work Phone: Start: 11-13-2021 AUDIT Jamari L Robbie r Work Phone: [facility] Work Phone: Start: 08-03-2021 End: 08-04-2021 ambulatory KATIANA Diehl [facility] Start: 07-03-2021 AUDIT Rich L Oberha user Work Phone: [facility] Work Phone: Start: 05-29-2021 AUDIT Rich L Oberha user Work Phone: [facility] Work Phone: Start: 01-04-2021 Office outpatient vi sit 25 minutes Rich L Oberhauser Work Phone: [facility] Work Phone: Start: 12-26-2020 AUDIT Rich Gonzalez Oberadelfo user Work Phone: [facility] Work Phone: Start: 11-16-2020 AUDIT Rich Lisa Oberha user Work Phone: [facility] Work Phone: Start: 11-02-2020 Office outpatient vi sit 25 minutes Rich Ng Work Phone: [facility] Work Phone: Start: 10-23-2020 End: 10-24-2020 Emergency department patient visit Epifanio Sorensen [facility] Emergency 15 Start: 08-24-2020 End: 08-24-2020 Orders Only Tessa Maria De Jesus Peralta Work Phone: [facility] Start: 07-19-2020 End: 07-20-2020 Patient encounter procedure [facility] Start: 07-19-2020 End: 07-19-2020 Subsequent hospital visit by physician Srini Medina Work Phone: [facility] EEG Comment on above: Seizure (HCC) Start: 07-05-2020 End: 07-05-2020 Patient encounter procedure [facility] Start: 03-21-2020 End: 03-22-2020 Patient encounter procedure [facility] Start: 03-21-2020 End: 03-21-2020 Subsequent hospital visit by physician Maty Chavez Work Phone: [facility] Sleep Lab Comment on above: MG (obstructive sle ep apnea) Start: 03-17-2020 End: 03-17-2020 Patient encounter procedure MATY CHAVEZ [facility] Start: 01-11-2020 Patient encounter procedure Rich Hernandez [facility] Work Phone: Start: 12-14-2019 Patient encounter procedure Rich Ng [facility] Work Phone: Start: 12-08-2019 End: 12-12-2019 [facility] Start: 12-08-2019 End: 12-08-2019 Office outpatient new 45 minutes Srini Medina Work Phone: [facility] Comment on above: Seizure (HCC) Start: 12-07-2019 Patient encounter procedure VERONAHENNY HILLIARD [facility] Start: 11-09-2019 Patient encounter procedure Rich Ng [facility] Work Phone: Start: 10-21-2019 Patient encounter procedure Rich Ng [facility] Work Phone: Start: 09-29-2019 Patient encounter procedure Rich Ng [facility] Work Phone: Start: 09-27-2019 Patient encounter procedure Rich Ng [facility] Work Phone: Start: 05-19-2019 Patient encounter procedure Juno Blackburn [facility] [address] Work Phone: Start: 05-13-2019 Patient encounter procedure Juno Blackburn [facility] [address] Work Phone: Start: 03-21-2019 End: 03-21-2019 Emergency department patient visit [place] Queen[place] Stewart Work Phone: [facility] Emergency Department Comment on above: Abdominal cramps (Pr imary Dx); Nausea Start: 03-11-2019 End: 03-11-2019 Emergency department patient visit Charlie Cannon Work Phone: [facility] Emergency Department Comment on above: Anxiety (Primary Dx) Start: 02-10-2019 End: 02-10-2019 Emergency department patient visit Lloyd Quiles Work Phone: [facility] Emergency Department Comment on above: 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) Start: 10-06-2018 End: 10-07-2018 Emergency department patient visit Kelsey Stewart Work Phone: [facility] Emergency Department Comment on above: Viral upper respirat ory infection (Primary Dx) Start: 10-04-2018 End: 10-05-2018 Emergency department patient visit David Wilson Work Phone: [facility] Emergency Department Comment on above: Hyperglycemia (Prima ry Dx); Diabetes mellitus due to underlying condition with hyperosmolarity 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, without long-term current use of insulin (HCC) Start: 09-12-2018 End: 09-12-2018 Emergency department patient visit Verona Hilliard [facility] Start: 07-16-2018 End: 07-16-2018 Emergency department patient visit Kelsey Stewart Facility:[place] Start: 02-01-2018 End: 02-02-2018 Emergency department patient visit Elie Hernadez Facility:[place] Start: 01-23-2018 Emergency department patient visit FABIO HAWK [facility] Start: 12-14-2017 End: 12-14-2017 Emergency department patient visit MILLY SINCLAIR Facility: Start: 11-30-2017 End: 11-30-2017 Emergency department patient visit PCP Unknown Physician Facility:[facility] Start: 11-21-2017 End: 11-21-2017 Ambulatory KADE VILLALOBOS Facility:[facility] Start: 11-18-2017 End: 11-19-2017 Patient encounter procedure KALYANI [facility] Start: 11-15-2017 End: 11-15-2017 Emergency department patient visit VERONA ARMINDA Facility:[facility] Start: 10-09-2017 End: 10-09-2017 Emergency department patient visit VERONA ARMINDA Facility:[facility] Start: 09-28-2017 End: 09-28-2017 Emergency department patient visit VERONA ARMINDA Facility:[facility] Start: 09-18-2017 End: 09-18-2017 Emergency department patient visit JOSIE HERNANDEZ Facility:[facility] Start: 07-03-2017 End: 07-03-2017 Patient encounter procedure [facility] Menarche Rich Lopez er Work Phone: [facility] Work Phone: Comment on above: AGE 15; Procedures Date Procedure Procedure Detail Performing Clinician Start: 01-20-2025 Urnls dip stick/tabl et reagent auto microscopy Dr. Jamari Byrne MD Work Phone: Start: 01-20-[address] Jamari Byrne MD Work Phone: Start: 01-20-2025 Hemoglobin A1c/Hemoglobin.total in Blood [facility]cf [...] 09-20-2024 Hemoglobin A1c/Hemoglobin.total in Blood Kelsy Guillermo DO Work Phone: Start: 09-02-2024 Us preg uterus [...] preg uterus after 1st trimest 06/09 gestation Zaydarosendo Erwinjorgito WEATHERS.WAREHOUSE UNLOADER Work Phone: Start: 07-01-2024 Radiologic exam chest 2 views Sixto Myers MD Work Phone: Start: 07-01-2024 Influenza virus A an d B and SARS-CoV-2 (COVID-19) identified in Respiratory specimen by SUMIT with probe detection Sixto Myers MD Work Phone: Start: 06-15-2024 Us nuchal kraus slucency 1st gestation Zaydarosendo Erwinjorgito WEATHERS.WAREHOUSE UNLOADER Work Phone: Start: 06-07-2024 Hemoglobin A1c/Hemoglobin.total in [...] panel Reza Dyer DO Work Phone: Start: 11-29-2024 Antibody screen KESHAV JOHNSTON Comment on above: Order Comment: Speci men Type: BLOOD SPECIMENOrdering Facility: [facility] Address: [address] [place] [address] Performed By: #### T SPN ####CC MAIN BLOOD BANKCLIA [id number] [place] [address] [place] Start: 05-07-2024 Us uterus l imited fetuses Zayda Parker MANAGER ASSURANCE.WAREHOUSE UNLOADER Work Phone: Start: 05-07-2024 Microscopic observat ion [Identifier] in Cervix by Cyto stain Reza Dyer DO Work Phone: Start: 05-03-2024 Hemoglobin A1c/Hemoglobin.total in Blood Kelsy Gonzalez Radha DO Work Phone: Start: 04-18-2024 Gonadotropin chorion ic quantitative Angyminnie Lynne MANAGER ASSURANCE-WAREHOUSE UNLOADER Work Phone: Start: 04-18-2024 Urinalysis microscop ic panel - Urine Qualitative by Automated Angy Lynne MANAGER ASSURANCE-WAREHOUSE UNLOADER Work Phone: Start: 04-18-2024 End: 04-18-2024 Iadna chlamydia trachomatis amplified probe tq Angy Lynne MANAGER ASSURANCE-WAREHOUSE UNLOADER Work Phone: Start: 04-18-2024 Urine test visual color cmprsn meths Angy Staples Bildelback MANAGER ASSURANCE-WAREHOUSE UNLOADER Work Phone: Start: 04-15-2024 Urinalysis MILLY Fernandez Comment on above: Result Comment: URIN ALYSIS Performed By: #### [id number] #### [facility] [place] [address] Start: 09-15-2023 Basic metabolic 2000 panel - [...] Start: 10-21-2019 CT Head without Contrast Rich Oberhauser Start: 10-21-2019 Localize cerebral se izure cptr portable eeg Rich Oberhauser Start: 09-27-2019 Basic metabolic 1998 panel - Serum or Plasma Rich Oberhauser Start: 09-27-2019 Blood count complete auto&auto difrntl wbc Rich Oberhauser Start: 09-27-2019 Gonadotropin chorion ic quantitative Rich Oberhauser Start: 09-27-2019 Hemoglobin glycosylated a1c Rich Oberhauser Start: 09-27-2019 TSH WITH REFLEX TO F REE T4 IF ABNORMAL Rich Oberhauser Start: 05-13-2019 Gonadotropin chorion ic quantitative Juno Alexey Start: 03-22-2019 Choriogonadotropin.b eta subunit ( test) [Presence] in Serum or Plasma Claude Riverasame Egal Work Phone: Start: 03-22-2019 Urinalysis Claude Armenta rsa Egal Work Phone: Start: 03-11-2019 Ethanol [Mass/volume [...] 03-11-2019 Choriogonadotropin ( test) [Presence] in Urine Chralie Cannon Work Phone: Start: 03-11-2019 Drugs of abuse urine screening test Charlie Cannon Work Phone: Start: 03-11-2019 Urinalysis Charlie gonzalez Work Phone: Start: 02-22-2019 Microalbumin [Mass/v olume] in Urine by Test strip Charlie Cannon Start: 02-10-2019 Choriogonadotropin ( test) [Presence] in Urine Lloyd Quiles Work Phone: Start: 02-10-2019 Drugs of abuse urine screening test Lloyd Quiles Work Phone: Start: 02-10-2019 Ethanol [Mass/volume ] in Serum or Plasma Lloyd Whitfield Kb Work Phone: Start: 02-10-2019 LAVENDER TOP Lloyd hernández Ribbon Work Phone: Start: 02-10-2019 LIGHT BLUE TOP Lloyd Quiles Work Phone: Start: 02-10-2019 MINT GREEN TOP Lloyd Quiles Work Phone: Start: 02-10-2019 RAINBOW DRAW Lloyd hernández Ribbon Work Phone: Start: 10-07-2018 Standard chest X-ray Christopher Stewart Work Phone: Start: 10-07-2018 Choriogonadotropin ( test) [Presence] in Urine Kelsey Stewart Work Phone: Start: 10-07-2018 Urinalysis Kelsey Stewart Work Phone: Start: 10-07-2018 Glucose [Mass/volume] in Blood [facility] Start: 10-05-2018 End: 10-05-2018 Glucose [Mass/volume] in Blood [facility] Start: 10-05-2018 Glucose [Mass/volume] in Blood [facility] Start: 10-05-2018 Evaluation of arteri [...] Phone: Start: 10-05-2018 LIGHT BLUE TOP Daisy e Bernardino Paiz Work Phone: Start: 10-05-2018 LIGHT GREEN TOP Miguel Paiz Work Phone: Start: 10-05-2018 RAINBOW DRAW Hailey Paiz Work Phone: Start: 10-05-2018 OBTAIN ARTERIAL BLOOD GASES Hailey Paiz Work Phone: Start: 10-05-2018 Choriogonadotropin ( test) [Presence] in Urine Hailey Paiz Work Phone: Start: 10-05-2018 Urinalysis Hailey Paiz Work Phone: Start: 10-04-2018 Glucose [Mass/volume] in Blood [facility] Start: 09-13-2018 Glucose blood reagent strip June Middleton Work Phone: Start: 09-13-2018 CBC, EDIF, PLATELET Clara zainab Andrade [employer] Work Phone: Start: 09-13-2018 Choriogonadotropin ( test) [Presence] in Serum or Plasma June [employer] Work Phone: Start: 09-13-2018 Comprehensive metabolic panel June Andrade [employer] Work Phone: Start: 09-13-2018 Choriogonadotropin ( test) [Presence] in Urine June Andrade [employer] Work Phone: Start: 09-13-2018 Urinalysis microscopic only June A [employer] Work Phone: Start: 09-13-2018 URINALYSIS, MACRO June A [employer] Work Phone: Start: 05-06-2016 Microscopic observat ion [...] or Population) (1 - 1-dose 75+ series) [facility] Start: 2045 Zoster Vaccines (1 o f 2) Zoster Vaccines (1 of 2) [facility] Start: 10-04-2034 Urine microalbumin profile DTaP,Tdap,Td Vaccine (8 - Td or Tdap) [facility] Start: 01-20-2030 Tetanus vaccination Tetanus: Every 1 0yrs [facility] Start: 05-07-2027 Screening for malign ant neoplasm of cervix [facility] Start: 07-16-2026 Glaucoma screening Diabetes: R etinopathy Screening [facility] Start: 07-23-2025 Hemoglobin A1c measurement HbA1C [facility] Start: 07-20-2025 End: 07-20-2025 Patient encounter procedure 07/20/2025 11:20 AM EST Office Visit Endocrinology [address] [place] [address] Kelsy Guillermo, DO [address] [place], [place] [id number] 6 month follow up Endocrinology Comment on above: 6 month follow up Start: 07-11-2025 End: 07-11-2025 ambulatory 07/11/2025 9:45 AM EST Results Only [facility] [address] [place] [address] [facility] Start: 07-10-2025 End: 10-09-2025 Comprehensive metabolic 2000 panel - Serum or Plasma COMPREHENSIVE METABOLIC PANEL Lab Routine 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, 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, 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 long-term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 (HCC) Expected: 07/10/2025 (Approximate), Expires: 10/09/2025 [facility] Comment on above: Expected: 07/10/2025 (Approximate), Expires: 10/09/2025 Start: 07-10-2025 End: 10-09-2025 Hemoglobin A1c in Blood HEMOGLOBIN A1C Lab Routine 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, 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, 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 (HCC) Expected: 07/10/2025 (Approximate), Expires: 10/09/2025 [facility] Comment on above: Expected: 07/10/2025 (Approximate), Expires: 10/09/2025 Start: 07-10-2025 End: 10-09-2025 Lipid 1996 panel - Serum or Plasma LIPID PANEL, FASTING Lab Routine 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, 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, 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 long-term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 (HCC) Expected: 07/10/2025 (Approximate), Expires: 10/09/2025 [facility] Comment on above: Expected: 07/10/2025 (Approximate), Expires: 10/09/2025 Start: 07-10-2025 End: 10-09-2025 Microalbumin/Creatinine [Mass Ratio] in Urine ALBUMIN/CREATININE RATIO, URINE Lab Routine 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, 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, 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 long-term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 (HCC) Expected: 07/10/2025 (Approximate), Expires: 10/09/2025 [facility] Comment on above: Expected: 07/10/2025 (Approximate), Expires: 10/09/2025 Start: 07-10-2025 End: 10-09-2025 Thyrotropin [Units/volume] in Serum or Plasma THYROID STIMULATING HORMONE Lab Routine 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, 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, 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 (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) Expected: 07/10/2025 (Approximate), Expires: 10/09/2025 [facility] Comment on above: Expected: 07/10/2025 (Approximate), Expires: 10/09/2025 Start: 03-22-2025 Hemoglobin A1c measurement HbA1C [facility] Start: 03-09-2025 End: 03-09-2025 Patient encounter procedure 03/09/2025 9:20 AM EDT Office Visit [facility] [address] [place] [phone] Jamari Byrne MD [address] [facility], [address] [place] [address] [facility] Start: 02-13-2025 Glaucoma screening Diabetes: R etinopathy Screening [facility] Start: 02-07-2025 Influenza vaccination [facility] Start: 01-28-2025 ambulatory Ambulatory Facility:[facility] Start: 01-21-2025 [facility] Start: 01-20-2025 End: 01-20-2025 Follow-up encounter 01/20/2025 2:00 PM EDT Education Endocrinology [address] [place] [address] [place] [address] [place] [address] follow up Endocrinology Comment on above: follow up Start: 01-20-2025 End: 01-20-2025 Patient encounter procedure Endocrinology Comment on above: see me for post part um f/u Jan 20 (virtual or in person) 6 week post Start: 01-19-2025 End: 01-19-2025 Patient encounter procedure 01/19/2025 1:20 PM EDT Office Visit OB/Gynecology [address] [place] [address] Whit Morton MD [address] [place] [address] 6 week post & pre-op surgery 01/28 OB/Gynecology Comment on above: 6 week post & pre-op surgery 01/28 Start: 12-21-2024 End: 12-21-2024 Patient encounter procedure 12/21/2024 1:40 PM EDT Office Visit OB/Gynecology [address] [place] [address] William Gramajo MD [address] [place] [address] 2 week post OB/Gynecology Comment on above: 2 week post Start: 12-16-2024 Vital signs measurements [facility] Start: 12-16-2024 End: 12-16-2024 Patient encounter procedure OB/Gynecology Comment on above: NST OB/NST Start: 12-16-2024 Patient discharge [facility] Start: 12-13-2024 End: 12-13-2024 Patient encounter procedure Maternal Medicine Comment on above: BPP OB/BPP Start: 12-09-2024 End: 12-09-2024 Patient encounter procedure OB/Gynecology Comment on above: NST OB/NST Start: 12-09-2024 Patient discharge [facility] Start: 12-08-2024 [facility] Start: 12-07-2024 Documentation procedure [facility] Start: 12-07-2024 Administration of medication [facility] Start: 12-07-2024 Application of ice collar, cap or bag [facility] Start: 12-07-2024 Catheterization of vein [facility] Start: 12-07-2024 Introduction of urin stephen catheter [facility] Start: 12-07-2024 Measuring intake and output [facility] Start: 12-07-2024 Notification of physician [facility] Start: 12-07-2024 Procedure discontinued [facility] Start: 12-07-2024 Provision of activit y privileges [facility] Start: 12-07-2024 Vital signs measurements [facility] Start: 12-07-2024 End: 12-07-2024 [facility] Start: 12-07-2024 Admission procedure [facility] Start: 12-07-2024 Consultation [facility] Start: 12-06-2024 End: 12-06-2024 Patient encounter procedure [facility]aternal Medicine Comment on above: BPP OB/BPP Start: 12-02-2024 End: 12-02-2024 Patient encounter procedure OB/Gynecology Comment on above: NST OB/NST Start: 11-30-2024 End: 11-30-2024 Patient encounter procedure 11/30/2024 3:30 PM EDT Routine Office Visit Maternal Medicine [address] [place] [address] GROWTH/BPP/MFM Maternal Medicine Comment on above: GROWTH/BPP/MFM Start: 11-26-2024 Screening for malign ant neoplasm of cervix [facility] Start: 11-25-2024 End: 11-25-2024 Patient encounter procedure OB/Gynecology Comment on above: NST OB/NST Start: 11-22-2024 End: 11-22-2024 Patient encounter procedure 11/22/2024 9:00 AM EDT Routine Office Visit Maternal Medicine [address] [place] [address] BPP Maternal Medicine Comment on above: BPP Start: 11-18-2024 End: 11-18-2024 Patient encounter procedure OB/Gynecology Comment on above: NST OB/NST Start: 11-15-2024 Nonstress test [facility] Start: 11-15-2024 Obstetric monitoring [facility] Start: 11-15-2024 Vital signs measurements [facility] Start: 11-15-2024 End: 11-15-2024 [facility] Start: 11-15-2024 Bacteria identified in Urine by Culture Urine Culture [facility] Start: 11-15-2024 End: 11-15-2024 Patient encounter procedure Maternal Medicine Comment on above: BPP OB/BPP Start: 11-15-2024 Patient discharge [facility] Start: 11-11-2024 End: 11-11-2024 Patient encounter procedure OB/Gynecology Comment on above: NST NST/OB Start: 11-08-2024 End: 11-08-2024 Patient encounter procedure 11/08/2024 9:00 AM EDT Routine Office Visit Maternal Medicine [address] [place] [address] BPP Maternal Medicine Comment on above: BPP Start: 11-05-2024 End: 02-04-2025 BILE ACIDS FRACT BLD [facility] Comment on above: Expected: 11/05/2024 , Expires: 02/04/2025 Start: 11-05-2024 End: 02-04-2025 BILE ACIDS, TOTAL [facility] Work Phone: Comment on above: Expected: 11/05/2024 , Expires: 02/04/2025 Start: 11-05-2024 End: 11-05-2024 Patient encounter procedure OB/Gynecology Comment on above: NST/OB NST/OB - encourage o ptho f/u JG-NST/OB Start: 11-04-2024 End: 11-04-2024 Patient encounter procedure 11/04/2024 2:20 PM EDT Office Visit [facility] [address] [facility] [address] [place] [phone] Jamari Byrne MD [address] [facility], [facility] [address] [place] [address] [facility] Start: 11-04-2024 End: 11-04-2024 Follow-up encounter 11/04/2024 11:00 AM EDT Education Endocrinology [address] [place] [address] [place] [address] [place] [address] follow up on 11/04/24 at 11 am. [...] Routine Office Visit Maternal Medicine [address] [place] [address] BPP Maternal Medicine Comment on above: BPP Start: 10-25-2024 End: 01-24-2025 PARVOVIRUS B19 IGG+M [facility] Work Phone: Comment on above: Expected: 10/25/2024 , Expires: 01/24/2025 Start: 10-25-2024 End: 10-25-2024 Patient encounter procedure OB/Gynecology Comment on above: NST OB Routine with EKG Start: 10-18-2024 End: 10-18-2024 Patient encounter procedure 10/18/2024 1:50 PM EDT Routine Office Visit OB/Gynecology [address] [place] [address] Keshav Loving MD [address] [place] [place] [address] OB Routine OB/Gynecology Comment on above: OB Routine Start: 10-16-2024 [facility] Start: 10-16-2024 Bacteria identified in Urine by Culture Urine Culture [facility] Start: 10-16-2024 Iv infusion therapy prophylaxis/dx ea hour THER/PROPH/DIAG IV INF [facility] Start: 10-16-2024 Iv infusion therapy/prophylaxis /dx 1st to 1 hr [facility] Start: 10-16-2024 Patient discharge [facility] Start: 10-12-2024 End: 10-12-2024 ambulatory 10/12/2024 10:00 AM EDT Procedure Pediatric Cardiology [address] [place] [address] Pamela Haskins MD [address] [place] [address] FU echo Pediatric Cardiology Comment on above: FU echo Start: 10-12-2024 End: 10-12-2024 Patient encounter procedure 10/12/2024 10:00 AM EDT Office Visit Pediatric Cardiology [address] [place] [address] FU echo Pediatric Cardiology Comment on above: FU echo Start: 10-04-2024 End: 01-03-2025 Bacteria identified in Urine by Culture [facility] Comment on above: Expected: 10/04/2024 , Expires: 01/03/2025 Start: 10-04-2024 End: 01-03-2025 Protein/Creatinine [Mass Ratio] in Urine [facility] Comment on above: Expected: 10/04/2024 , Expires: 01/03/2025 Start: 10-04-2024 End: 10-04-2024 Patient encounter procedure Maternal Medicine Comment on above: Gr=owth OB Start: 09-24-2024 End: 09-24-2024 Patient encounter procedure 09/24/2024 3:15 PM EDT Routine Office Visit OB/Gynecology [address] [place] [address] Leonie Waldron APRN.CN [address] [place] [place] [address] Supervision of high risk in second trimester (HCC) (Primary Dx); 27 weeks gestation of (HCC); Burning with urination; Vaginal discharge OB/Gynecology Comment on above: Supervision of high risk in second trimester (HCC) (Primary Dx); 27 weeks gestation of (HCC); Burning with urination; Vaginal discharge Start: 09-24-2024 Obstetric monitoring [facility] Start: 09-24-2024 [facility] Start: 09-24-2024 Vital signs measurements [facility] Start: 09-24-2024 Patient discharge [facility] Start: 09-20-2024 End: 09-20-2024 Patient encounter procedure 09/20/2024 1:40 PM EDT Office Visit Endocrinology [address] [place] [address] Kelsy Guillermo, [address] [place] [address] see me in 7 weeks for f/u. Endocrinology Comment on above: see me in 7 weeks fo r f/u. Start: 09-07-2024 End: 09-07-2024 Patient encounter procedure Maternal Medicine Comment on above: Growth OB Routine Start: 09-05-2024 Hemoglobin A1c measurement Diabetes: Hemoglobin A1C [facility] Start: 09-02-2024 End: 09-02-2024 Patient encounter procedure 09/02/2024 11:00 AM EDT Routine Office Visit Maternal Medicine [address] [place] [address] Growth Maternal Medicine Comment on above: Growth Start: 08-24-2024 End: 08-24-2024 ambulatory 08/24/2024 1:00 PM EDT Procedure Pediatric Cardiology [address] [place] [address] Pamela Haskins MD [address] [place], [place] [id number] Pre-existing type 2 diabetes mellitus in in first trimester [O24.111] Pediatric Cardiology Comment on above: Pre-existing type 2 diabetes mellitus in in first trimester [O24.111] Start: 08-24-2024 End: 08-24-2024 Patient encounter procedure 08/24/2024 1:00 PM EDT Office Visit Pediatric Cardiology [address] [place], [place] [id number] Pre-existing type 2 diabetes mellitus in in first trimester [O24.111] Pediatric Cardiology Comment on above: Pre-existing type 2 diabetes mellitus in in first trimester [O24.111] Start: 08-10-2024 End: 08-10-2024 Patient encounter procedure Maternal Medicine Comment on above: Anatomy Scan anatomy / mfm OB Routine Start: 08-03-2024 Hemoglobin A1c measurement Diabetes: Hemoglobin A1C [facility] Start: 07-26-2024 End: 07-26-2024 Patient encounter procedure 07/26/2024 2:00 PM EST Office Visit Endocrinology [address] [place], [place] [id number] Kelsy Guillermo, DO [address] [place] [address] 8 weeks v/u Endocrinology Comment on above: 8 weeks v/u Start: 07-13-2024 End: 07-13-2025 OBSTETRIC ULTRASOUND WHI OBSTETRIC ULTRASOUND WHI Anc Imaging Routine Encounter for anatomic survey Expected: 07/13/2024, Expires: 07/13/2025 [facility] Work Phone: Comment on above: Expected: 07/13/2024 , Expires: 07/13/2025 Start: 07-13-2024 End: 07-13-2024 Patient encounter procedure Maternal Medicine Comment on above: Early Anatomy Scan OB Routine Start: 07-12-2024 End: 07-12-2024 Patient encounter procedure 07/12/2024 10:00 AM EST Office Visit OB/Gynecology [address] [place], [place] [id number] Lucy Mariscal APRN.WAREHOUSE [employer] [address] [place] [address] ANNUAL OB/Gynecology Comment on above: ANNUAL Start: 06-16-2024 End: 06-16-2024 ambulatory 06/16/2024 10:00 AM EST [facility] Endocrinology [address] [place] [address] [place] [address] [place] [address] see child welfare specialist (Carrie Larsen) virtual visit Endocrinology Comment on above: see child welfare specialist (Hiral Larsen) virtual visit Start: 06-15-2024 End: 09-14-2024 Chromosome 21 trisomy [Presence] in Blood or Tissue by Cytogenetics [facility] Work Phone: Comment on above: Expected: 06/15/2024 , Expires: 09/14/2024 Start: 06-15-2024 End: 06-15-2024 Patient encounter procedure Maternal Medicine Comment on above: Nuchal/ Consult to M FM Start: 06-09-2024 Medicare Advantage Annual Wellness Visit Medicare Advantage Annual Wellness Visit [facility] Start: 06-08-2024 End: 06-08-2024 Patient encounter procedure 06/08/2024 1:10 PM EST Routine Office Visit OB/Gynecology [address] [place], [place] [id number] Piper Julian MD [address], [place] [id number] New Ob LMP 03/13/2024 OB/Gynecology Comment on above: New Ob LMP 03/13/2024 Start: 06-07-2024 End: 06-07-2024 Patient encounter procedure 06/07/2024 2:20 PM EST Office Visit Endocrinology [address] [place] [address] Kelsy Guillermo, DO [address] [place], [place] [id number] see me in 4 weeks (virtual visit) Endocrinology Comment on above: see me in 4 weeks (v irtual visit) Start: 05-26-2024 End: 05-26-2024 Patient encounter procedure 05/26/2024 10:10 AM EST Routine Office Visit OB/Gynecology [address] [place] [id number] Krys Kulkarni MD [address], [place] [id number] Previous MFM records in JG chart prep folder OB/Gynecology Comment on above: Previous MFM records in JG chart prep folder Start: 05-07-2024 End: 08-06-2024 ANEMIA REFLEX PANEL [facility] Work Phone: Comment on above: Expected: 05/07/2024 , Expires: 08/06/2024 Start: 05-07-2024 End: 08-06-2024 CARRIER SCREEN, STANDARD [facility] Comment on above: Expected: 05/07/2024 , Expires: 08/06/2024 Start: 05-07-2024 End: 08-06-2024 Hepatitis B virus surface Ag [Presence] in Serum [facility] Comment on above: Expected: 05/07/2024 , Expires: 08/06/2024 Start: 05-07-2024 End: 08-06-2024 Hepatitis C virus Ab [Presence] in Serum [facility] Comment on above: Expected: 05/07/2024 , Expires: 08/06/2024 Start: 05-07-2024 End: 08-06-2024 HIV 1+2 Ab [Presence] in Serum or Plasma by Immunoassay [facility] Comment on above: Expected: 05/07/2024 , Expires: 08/06/2024 Start: 05-07-2024 End: 05-07-2025 NUCHAL TRANSLUCENCY WHI NUCHAL TRANSLUCENCY WHI Anc Imaging Routine with uncertain dates in first trimester Expected: 05/07/2024, Expires: 05/07/2025 [facility] Comment on above: Expected: 05/07/2024 , Expires: 05/07/2025 Start: 05-07-2024 End: 05-07-2025 OBSTETRIC ULTRASOUND WHI OBSTETRIC ULTRASOUND WHI Anc Imaging Routine with uncertain dates in first trimester Expected: 05/07/2024, Expires: 05/07/2025 [facility] Comment on above: Expected: 05/07/2024 , Expires: 05/07/2025 Start: 05-07-2024 End: 08-06-2024 Protein/Creatinine [Mass Ratio] in Urine [facility] Comment on above: Expected: 05/07/2024 , Expires: 08/06/2024 Start: 05-07-2024 End: 02-28-2025 RUBELLA IGG ANTIBODY [facility] Comment on above: Expected: 05/07/2024 , Expires: 08/06/2024 Start: 05-07-2024 End: 08-06-2024 SYPHILIS TREPONEMAL W/REFLEX [facility] Comment on above: Expected: 05/07/2024 , Expires: 08/06/2024 Start: 05-07-2024 End: 08-06-2024 Thyrotropin [Units/volume] in Serum or Plasma [facility] Comment on above: Expected: 05/07/2024 , Expires: 08/06/2024 Start: 05-07-2024 End: 08-06-2024 TYPE + SCREEN [facility] Comment on above: Expected: 05/07/2024 , Expires: 08/06/2024 Start: 05-07-2024 End: 05-07-2024 Patient encounter procedure OB/Gynecology Comment on above: New Ob LMP 03/13/2024 Start: 05-04-2024 End: 05-04-2024 Patient encounter procedure 05/04/2024 2:20 PM EST Office Visit [facility] [address] [facility] [address] [place] [phone] Jamari Byrne MD [address] [facility], [address] [place] [address] [facility] Start: 05-03-2024 End: 05-03-2024 Patient encounter procedure 05/03/2024 2:40 PM EST Office Visit Endocrinology [address] [place] [address] Kelsy Guillermo, DO [address] [place] [address] Insulin controlled gestational diabetes mellitus (GDM) in first trimester [O24.414] Endocrinology Comment on above: Insulin controlled g estational diabetes mellitus (GDM) in first trimester [O24.414] Start: 03-17-2024 Hemoglobin A1c measurement Diabetes: Hemoglobin A1C [facility] Start: 02-14-2024 Glaucoma screening Diabetes: R etinopathy Screening [facility] Start: 02-08-2024 Covid-19 Vaccine ( season) Covid-19 Vaccine () [facility] Start: 02-08-2024 Influenza vaccination [facility] Start: 01-23-2024 End: 04-24-2024 Hemoglobin A1c/Hemoglobin.total in Blood Hemoglobin A1C Lab Routine Hyperglycemia due to diabetes mellitus (Multi) Expected: 01/23/2024 (Approximate), Expires: 04/24/2024 [facility] Service Area Work Phone: Comment on above: Expected: 01/23/2024 (Approximate), Expires: 04/24/2024 Start: 12-24-2023 End: 12-24-2023 Patient encounter procedure 12/24/2023 11:20 AM EDT Office Visit [facility] [address] [place] [phone] Jamari Byrne MD [address] [facility], [address] [place] [phone] [facility] Start: 09-15-2023 End: 09-15-2023 Patient encounter procedure 09/15/2023 10:20 AM EDT Office Visit [facility] [address] [place] [phone] Jamari Byrne MD [address] [facility], [address] [place] [address] [facility] Start: 09-08-2023 End: 07-10-2024 Basic metabolic 2000 panel - Serum or Plasma Basic Metabolic Panel Lab Routine Hyperglycemia due to diabetes mellitus (CMS/HCC) Expected: 09/08/2023 (Approximate), Expires: 07/10/2024 [facility] Service Area Work Phone: Comment on above: Expected: 09/08/2023 (Approximate), Expires: 07/10/2024 Start: 09-08-2023 End: 07-10-2024 Hemoglobin A1c/Hemoglobin.total in Blood Hemoglobin A1C Lab Routine Hyperglycemia due to diabetes mellitus (CMS/HCC) Expected: 09/08/2023 (Approximate), Expires: 07/10/2024 [facility] Work Phone: Comment on above: Expected: 09/08/2023 (Approximate), Expires: 07/10/2024 Start: 07-10-2023 End: 05-09-2024 Basic metabolic 2000 panel - Serum or Plasma Basic Metabolic Panel Lab Routine Hyperglycemia due to diabetes mellitus (CMS/HCC) Expected: 07/10/2023, Expires: 05/09/2024 [facility] Work Phone: Comment on above: Expected: 07/10/2023 , Expires: 05/09/2024 Start: 07-10-2023 End: 05-09-2024 Hemoglobin A1c/Hemoglobin.total in Blood Hemoglobin A1C Lab Routine Hyperglycemia due to diabetes mellitus (CMS/HCC) Expected: 07/10/2023 (Approximate), Expires: 05/09/2024 [facility] Service Area Work Phone: Comment on above: Expected: 07/10/2023 (Approximate), Expires: 05/09/2024 Start: 07-10-2023 End: 07-10-2023 Patient encounter procedure 07/10/2023 10:20 AM EST Office Visit [place] [address] [place] [phone] Jamari Byrne MD [address] [facility], [address] [place] [address] [facility] Start: 06-11-2023 Hemoglobin A1c measurement Diabetes: Hemoglobin A1C [facility] Start: 06-09-2023 Depression Assessment Depression Ass essment [facility] Start: 04-23-2023 End: 04-23-2023 Patient encounter procedure 04/23/2023 10:20 AM EST Office Visit [facility] [address] [place] [phone] Jamari Byrne MD [address] [facility], [address] [place] [phone] [facility] Start: 03-15-2023 End: 12-14-2023 Hemoglobin A1c/Hemoglobin.total in Blood Hemoglobin A1C Lab Routine Hyperglycemia due to diabetes mellitus ([facility]) Expected: 03/15/2023 (Approximate), Expires: 12/14/2023 [facility] Service Area Work Phone: Comment on above: Expected: 03/15/2023 (Approximate), Expires: 12/14/2023 Start: 03-05-2023 Hemoglobin A1c measurement Diabetes: Hemoglobin A1C [facility] Start: 02-08-2023 Ophthalmic examinati on and evaluation Diabetes: Retinopathy Screening [facility] Start: 02-07-2023 Covid-19 Vaccine ( season) Covid-19 Vaccine ( season) [facility] Start: 02-07-2023 Influenza vaccination Influenz a Vaccine (#1) [facility] Start: 11-27-2022 Patient encounter procedure ANNUAL, Provider: Jeanie Sutton, Status: Pen, Time: 8:[address] Work Phone: Start: 11-26-2022 History and physical examination, annual for health maintenance Wellness Visit [facility] Start: 08-22-2022 FUV, Provider: Jamari Byrne, Status: Pen, Time: 11:20 AM FUV, Provider: Jamari Byrne, Status: Pen, Time: 11:20 AM [facility] Work Phone: Start: 08-03-2022 Hepatitis B surface antibody level LDL Cholesterol [facility] Start: 08-03-2022 Urine screening for protein [facility] Start: 02-22-2022 FUV, Provider: Jamari Byrne, Status: Pen, Time: 8:40 AM FUV, Provider: Jamari Byrne, Status: Pen, Time: 8:40 AM [facility] Work Phone: Start: 02-07-2022 Influenza vaccination Sequenti al Influenza Vaccine (#1) [facility] Start: 12-25-2021 FUV, Provider: Jeanie Sutton, Status: Pen, Time: 8:45 AM FUV, Provider: Jeanie Sutton, Status: Pen, Time: 8:45 AM [facility] Work Phone: Start: 12-17-2021 FUV, Provider: Jeanie Sutton, Status: Pen, Time: 9:15 AM FUV, Provider: Jeanie Sutton, Status: Pen, Time: 9:15 [facility] Work Phone: Start: 10-31-2021 Hemoglobin A1c measurement A1C [facility] Start: 04-05-2021 FUV, Provider: Rich Ng, Status: Pen, Time: 10:20 AM FUV, Provider: Rich Ng, Status: Pen, Time: 10:20 AM [facility] Work Phone: Start: 01-04-2021 FUV, Provider: Rich Ng, Status: Pen, Time: 10:20 AM FUV, Provider: Rich Ng, Status: Pen, Time: 10:20 AM [facility] Work Phone: Start: 12-13-2020 Patient encounter procedure [facility] [place] Start: 11-08-2020 End: 11-08-2020 Office Visit 11/08/2020 Office Visit Neurology MedinaSrini MD [address] [place], [place] [id number] [phone] [facility] Start: 10-11-2020 Urine microalbumin profile DTaP,Tdap,Td Vaccine (7 - Td or Tdap) [facility] Start: 10-07-2020 Depression Remission Assessment (PHQ9) Depression Remission Assessment (PHQ9) [facility] Start: 02-23-2020 Albumin DL <= 20 mg/ L (U) [Mass/Vol] URINE MICROALBUMIN [facility] Start: 02-23-2020 Hepatitis B screening Urine Albumin:Creatinine Ratio [facility] Start: 02-17-2020 End: 02-17-2020 Office Visit 02/17/2020 Office Visit Neurology Srini Medina MD [address] [address] [phone] [facility] Start: 02-08-2020 Influenza vaccinatio n given Sequential Influenza Vaccine (#1) [facility] Start: 12-23-2019 Depression Remission Assessment (PHQ9) Depression Remission Assessment (PHQ9) [facility] Start: 10-21-2019 Localize cerebral seizure cptr portable eeg EEG: Ambulatory outpatient [facility] Work Phone: Start: 10-21-2019 CT Head withou t Contrast [facility] Work Phone: Start: 08-23-2019 HbA1c (Bld) [Mass fraction] A1C [facility] Start: 07-09-2019 Screening for malign ant neoplasm of cervix [facility] Start: 05-24-2019 End: 05-24-2019 Office Visit 05/24/2019 Office Visit Primary Care Verona Hilliard MD [address] [place] [phone] [facility] Start: 05-06-2019 Screening for malign ant neoplasm of cervix PAP SMEAR [facility] Start: 02-07-2019 Influenza vaccination INFLUENZ A VACCINE (Season Ended) [facility] Start: 02-07-2019 Influenza vaccinatio n given SEQUENTIAL INFLUENZA VACCINE (#1) [facility] Start: 11-02-2018 HbA1c (Bld) [Mass fraction] A1C [facility] Start: 02-07-2018 Influenza vaccinatio n given SEQUENTIAL INFLUENZA VACCINE (#1) [facility] Start: 02-26-2017 Albumin DL <= 20 mg/ L (U) [Mass/Vol] URINE MICROALBUMIN [facility] Start: 2017 DTaP/Tdap/Td Vaccine s (1 - Tdap) DTaP/Tdap/Td Vaccines (1 - Tdap) [facility] Start: 01-28-2016 Screening for malign ant neoplasm of cervix [facility] Start: 11-22-2014 Pneumococcal vaccination Pneumococcal Vaccine (2 of 2 - PCV) [facility] Start: 2014 Hepatitis A Vaccines (1 of 2 - Risk 2-dose series) Hepatitis A Vaccines (1 of 2 - Risk 2-dose series) [facility] Start: 2014 Hepatitis B Vaccines (1 of 3 - 19+ 3-dose series) Hepatitis B Vaccines (1 of 3 - 19+ 3-dose series) [facility] Start: 2014 Pneumococcal Vaccine : Pediatrics and At-Risk Adult Patients (1 of 2 - PCV) Pneumococcal Vaccine: Pediatrics and At-Risk Adult Patients (1 of 2 - PCV) [facility] Start: 2014 Third diphtheria, tetanus and acellular pertussis (DTaP) vaccination TDAP (ADULT) [facility] Start: 2014 Zoster Vaccines (1 o f 2) Zoster Vaccines (1 of 2) [facility] Start: 2013 Annual PCP Team Gravel Screener andres Disease Visit Annual PCP Team Chronic Disease Visit [facility] Start: 2013 Anxiety Screening Anxiety Screening [facility] Start: 2013 Depression Screening Depression Scre ening [facility] Start: 2013 Hepatitis C antibody , confirmatory test Hepatitis C Screening [facility] Start: 2013 Hepatitis C screening Hepatitis C Sc reening [facility] Start: 2013 HIV screening HIV Screening [facility] Start: 2013 Tetanus vaccination [facility] Start: 2011 COVID-19 Vaccine (1 of 2) COVID-19 Vaccine (1 of 2) [facility] Start: 2011 Screening for Chlamy clara trachomatis CHLAMYDIA SCREEN [facility] Start: 2010 HIV screening HIV Screening [facility] Start: 2010 Vaccination for agusto n papillomavirus [facility] Start: 06-09-2009 Tetanus vaccination [facility] Start: 01-28-2008 HIV screening HIV SCREENING DISCUSSION [facility] Start: 01-28-2008 Varicella vaccination Varicell a Vaccines (1 of 2 - 13+ 2-dose series) [facility] Start: 2006 Vaccination for agusto n papillomavirus HPV Vaccines (1 - 2-dose series) [facility] Start: 2005 Diabetic foot examination [facility] Start: 2005 Glaucoma screening [facility] Start: 2005 Ophthalmic examinati on and evaluation Ophthalmology Exam [facility] Start: 2001 Pneumococcal Vaccine : Ped or At-Risk (1 - PCV) Pneumococcal Vaccine: Ped or At-Risk (1 - PCV) [facility] Start: 2001 Pneumococcal Vaccine : Pediatrics (0 to 5 Years) and At-Risk Patients (6 to 64 Years) (1 - PCV) Pneumococcal Vaccine: Pediatrics (0 to 5 Years) and At-Risk Patients (6 to 64 Years) (1 - PCV) [facility] Start: 2001 Pneumococcal Vaccine : Pediatrics (0 to 5 Years) and At-Risk Patients (6 to 64 Years) (1 of 2 - PCV) Pneumococcal Vaccine: Pediatrics (0 to 5 Years) and At-Risk Patients (6 to 64 Years) (1 of 2 - PCV) [facility] Start: 01-28-2000 COVID-19 Vaccine (#1) COVID-19 Vacci ne (#1) [facility] Start: 1998 History and physical examination, annual for health maintenance Wellness Visit [facility] Start: 01-28-1996 MMR Vaccines (1 of 1 - Standard series) MMR Vaccines (1 of 1 - Standard series) [facility] Start: 01-28-1996 Varicella vaccination Varicell a Vaccines (1 of 2 - 2-dose childhood series) [facility] Start: 1995 COVID-19 Vaccine (#1) COVID-19 Vacci ne (#1) [facility] Start: 1995 Depression screening using PHQ-9 (Patient Health Questionnaire 9) score DEPRESSION SCREENING (PHQ9) [facility] Start: 1995 GONORRHEA SCREEN [facility] Start: 1995 Hepatitis B Vaccines (1 of 3 - 3-dose series) Hepatitis B Vaccines (1 of 3 - 3-dose series) [facility] Start: 1995 Lipid panel Lipid Panel [facility] Start: 1995 Medicare Annual Wellness Visit Medicare Annual Wellness Visit (AWV) [facility] Start: 1995 Screening for Chlamy clara trachomatis Chlamydia Screening [facility] End: 04-18-2024 Bacteria identified in Urine by Culture [facility] Work Phone: Comment on above: Once (Lab) for 1 Occ urrences starting 04/18/2024 until 04/18/2024 Bacteria identified in Urine by Culture URINE CULTURE Microbiology Routine with uncertain dates in first trimester 05/07/2024 10:24 AM [facility] Bacteria identified in Urine by Culture BACTERIAL CULTURE, URINE Microbiology Routine Burning with urination 09/24/2024 9:17 AM T [facility] Work Phone: BACTERIAL VAGINOSIS NAAT BACTERIAL VAGINOSIS NAAT Lab Routine Vaginal discharge during in first trimester 05/07/2024 10:24 AM [facility] BACTERIAL VAGINOSIS NAAT BACTERIAL VAGINOSIS NAAT Lab Routine Vaginal discharge 09/24/2024 9:17 AM [facility] BACTERIAL VAGINOSIS NAAT BACTERIAL VAGINOSIS NAAT Lab Routine Vaginal itching Ordered: 11/18/2024 [facility] Work Phone: Comment on above: Ordered: 11/18/2024 End: 01-03-2025 BIOPHYSICAL PROFILE US I BIOPHYSICAL PROFILE US [facility] Anc Imaging Routine Supervision of high risk in third trimester ([facility]) Pre-existing type 2 diabetes mellitus in in first trimester ([facility]) Once per week for 10 Occurrences starting 10/05/2024 until 01/03/2025 [facility] Comment on above: Once per week for 10 Occurrences starting 10/05/2024 until 01/03/2025 JOSUÉ/TRICHOMONAS NAAT JOSUÉ/TRICHOMONAS NAAT Lab Routine Vaginal discharge during in first trimester 05/07/2024 10:24 AM [facility] JOSUÉ/TRICHOMONAS NAAT JOSUÉ/TRICHOMONAS NAAT Lab Routine Vaginal discharge 09/24/2024 9:17 AM [facility] JOSUÉ/TRICHOMONAS NAAT JOSUÉ/TRICHOMONAS NAAT Lab Routine Vaginal itching Ordered: 11/18/2024 [facility] Comment on above: Ordered: 11/18/2024 Cast care: wet Wet prep, genita l Microbiology Routine Vaginal discharge Ordered: 08/17/2022 [facility] Work Phone: Comment on above: Ordered: 08/17/2022 End: 12-08-2020 Ceruloplasmin measurement Ceruloplasmin Lab Routine Seizure (HCC) 1 Occurrences starting 12/08/2019 until 12/08/2020 [facility] Comment on above: 1 Occurrences starti ng 12/08/2019 until 12/08/2020 Ceruloplasmin measurement Ceruloplasmin Lab Routine Seizure ([facility]) 12/08/2019 8:42 AM EDT [facility] Chlamydia trachomati s rRNA assay Chlamydia/GC/Trichomo savannah Amplified RNA Microbiology Routine Vaginal discharge Ordered: 08/17/2022 [facility] Comment on above: Ordered: 08/17/2022 Chlamydia trachomatis+Neisseria gonorrhoeae DNA [Presence] in Unspecified specimen by SUMIT with probe detection GONORRHEA/CHLAMYDIA NAAT Lab Routine with uncertain dates in first trimester 05/07/2024 10:24 AM [facility] End: 10-04-2025 ECG COMPLETE ECG COMPLETE ECG Routine History of pre-eclampsia 29 weeks gestation of ([facility]) Pre-existing type 2 diabetes mellitus in in third trimester ([facility]) Supervision of high risk in third trimester ([facility]) 1 Occurrences starting 10/04/2024 until 10/04/2025 [facility] Work Phone: Comment on above: 1 Occurrences starti ng 10/04/2024 until 10/04/2025 End: 06-15-2025 ECHO ECHO Cardiology Routine Pre-existing type 2 diabetes mellitus in in first trimester 1 Occurrences starting 06/15/2024 until 06/15/2025 [facility] Comment on above: 1 Occurrences starti ng 06/15/2024 until 06/15/2025 End: 04-18-2024 Extra Urine [facility] Extra Urine [facility] Lab Timed Once for 1 Occurrences starting 04/18/2024 until 04/18/2024 [facility] Work Phone: Comment on above: Once for 1 Occurrenc es starting 04/18/2024 until 04/18/2024 End: 05-21-2024 Extra Urine [place] [facility] Work Phone: Comment on above: Once for 1 Occurrenc es starting 05/21/2024 until 05/21/2024 End: 01-02-2025 nonstress test NON-STRESS TEST Procedures Routine History of pre-eclampsia 29 weeks gestation of ([facility]) Pre-existing type 2 diabetes mellitus in in third trimester ([facility]) Supervision of high risk in third trimester ([facility]) 2x per week for 16 Occurrences starting 10/04/2024 until 01/02/2025 [facility] Comment on above: 2x per week for 16 O ccurrences starting 10/04/2024 until 01/02/2025 Hemoglobin A1c/Hemoglobin.total in Blood HEMOGLOBIN A1C (POC) Lab Routine 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, 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, 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 ([facility]) Ordered: 01/20/2025 [facility] Work Phone: Comment on above: Ordered: 01/20/2025 Lactate dehydrogenas e measurement [facility] Magnesium measurement [facility] Neisseria gonorrhoea e nucleic acid detection Chlamydia/Gonorrhoeae Amplified RNA Microbiology Routine Vaginal discharge Ordered: 08/17/2022 [facility] Comment on above: Ordered: 08/17/2022 End: 12-08-2020 Nuclear Ab IF (S) [Titer] NICOLE Lab Routine Seizure ([facility]) 1 Occurrences starting 12/08/2019 until 12/08/2020 [facility] Comment on above: 1 Occurrences starti ng 12/08/2019 until 12/08/2020 Nuclear Ab IF (S) [Titer] NICOLE Lab Routine Seizure (HCC) 12/08/2019 8:42 AM EDT [facility] End: 11-26-2024 OBSTETRIC ULTRASOUND WHI OBSTETRIC ULTRASOUND I Anc Imaging Routine Obesity affecting in first trimester, unspecified obesity type Pre-existing type 2 diabetes mellitus in in first trimester Once per month for 4 Occurrences starting 08/10/2024 until 11/26/2024 [facility] Work Phone: Comment on above: Once per month for 4 Occurrences starting 08/10/2024 until 11/26/2024 PAP TEST PAP TEST Lab Minerva arellano Encounter for supervision of high risk in first trimester, antepartum Screening for cervical cancer 05/07/2024 10:48 AM EST [facility] Patient Education [facility] Work Phone: Patient referral [facility] Work Phone: End: 12-08-2020 Reagin Ab RPR Ql (S) RPR Lab Routine Seizure (HCC) 1 Occurrences starting 12/08/2019 until 12/08/2020 [facility] Comment on above: 1 Occurrences starti ng 12/08/2019 until 12/08/2020 Reagin Ab RPR Ql (S) RPR Lab Rou eileen Seizure ([facility]) 12/08/2019 8:42 AM EDT [facility] Trichomonas vaginali s Amplified RNA Trichomonas vaginalis Amplified RNA Microbiology Routine Vaginal discharge Ordered: 08/17/2022 [facility] Comment on above: Ordered: 08/17/2022 Urate [Mass/volume] in Serum or Plasma [facility] End: 04-18-2024 Urinalysis complete W Reflex Culture panel - Urine [facility] Service Area Work Phone: Comment on above: Once (Lab) for 1 Occ urrences starting 04/18/2024 until 04/18/2024 End: 05-21-2024 Urinalysis complete W Reflex Culture panel - Urine [facility] Area Work Phone: Comment on above: Once (Lab) for 1 Occ urrences starting 05/21/2024 until 05/21/2024 Urine culture [facility] Urine culture [facility] URINE OB DIP B/O URINE OB DIP B/ O Lab Routine Pre-existing type 2 diabetes mellitus in in third trimester ([facility]) Supervision of high risk in third trimester ([facility]) History of pre-eclampsia H/O macrosomia in in prior , currently ([facility]) 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 Planned Goals not documented [facility] Work Phone: Immunizations Immunization Date Immunization Notes Care Provider [facility] 10-04-2024 tetanus toxoid, redu vicki diphtheria toxoid, and acellular pertussis vaccine, adsorbed Piper Julian MD Work Phone: [facility] 03-27-[address] Jamari Byrne MD Work Phone: [facility] 03-27-2016 influenza virus vacc ine, unspecified formulation [facility] 11-22-2013 pneumococcal polysaccharide vaccine, 23 valent Piper Julian MD Work Phone: [facility] 03-29-2013 influenza, seasonal, injectable Piper Julian MD Work Phone: [facility] 03-29-2013 influenza virus vacc ine, unspecified formulation Mary GOODWIN Work Phone: [facility] 09-17-2012 hepatitis A vaccine, pediatric/adolescent dosage, 2 dose schedule Piper Julian MD Work Phone: [facility] 01-30-2012 hepatitis A vaccine, pediatric/adolescent dosage, 2 dose schedule Piper Julian MD Work Phone: [facility] 10-11-2010 HPV, unspecified formulation Piper Julian MD Work Phone: [facility] 10-11-2010 tetanus toxoid, redu vicki diphtheria toxoid, and acellular pertussis vaccine, adsorbed Piper Julian MD Work Phone: [facility] 11-05-2007 human papilloma viru s vaccine, quadrivalent Piper Julian MD Work Phone: [facility] 09-03-2007 HPV, unspecified formulation Piper Julian MD Work Phone: [facility] 09-03-2007 meningococcal polysaccharide vaccine (MPSV4) Piper Julian MD Work Phone: [facility] 11-27-2000 diphtheria, tetanus toxoids and acellular pertussis vaccine, unspecified formulation Piper Julian MD Work Phone: [facility] 11-27-2000 measles, mumps and rubella virus vaccine Piper Julian MD Work Phone: [facility] 06-09-1999 HPV, unspecified formulation Lloyd Quiles [facility] 03-05-1999 haemophilus influenz ae type b vaccine, conjugate unspecified formulation Piper Julian MD Work Phone: [facility] 03-05-1999 trivalent poliovirus vaccine, live, oral Piper Julian MD Work Phone: [facility] 02-15-1998 diphtheria, tetanus toxoids and acellular pertussis vaccine, unspecified formulation Piper Julian MD Work Phone: [facility] 07-26-1997 diphtheria, tetanus toxoids and pertussis vaccine Piper Julian MD Work Phone: [facility] 07-26-1997 haemophilus influenz ae type b vaccine, conjugate unspecified formulation Piper Julian MD Work Phone: [facility] 07-26-1997 trivalent poliovirus vaccine, live, oral Piper Julian MD Work Phone: [facility] 04-26-1997 diphtheria, tetanus toxoids and pertussis vaccine Piper Jluian MD Work Phone: [facility] 04-26-1997 haemophilus influenz ae type b vaccine, conjugate unspecified formulation Piper Julian MD Work Phone: [facility] 04-26-1997 measles, mumps and rubella virus vaccine Piper Julian MD Work Phone: [facility] 04-26-1997 trivalent poliovirus vaccine, live, oral Piper Julian MD Work Phone: [facility] 01-14-1996 DTP-Haemophilus influenzae type b conjugate vaccine Piper Julian MD Work Phone: [facility] 01-14-1996 hepatitis B vaccine, pediatric or pediatric/adolescent dosage Piper Julian MD Work Phone: [facility] 01-14-1996 trivalent poliovirus vaccine, live, oral Piper Julian MD Work Phone: [facility] 1995 hepatitis B vaccine, adult dosage Piper Julian MD Work Phone: [facility] 1995 hepatitis B vaccine, adult dosage Piper Julian MD Work Phone: [facility] Payers Date Payer Category Payer Unknown [id number] 2024 Medicare (Managed Care) 1.2. [id number] 2024 Self-pay 2023 Medicare [id number] 2022 Dual Eligibility Medicare/Medicaid Organization [id number] 2022 Medicaid [id number] 2021 Medicare [id number] 2019 Unknown 2016 Medicaid [id number] 2016 Unknown [id number] 2016 Medicaid [id number] 2016 Medicaid [facility] MEDICAID [employer] MEDICAID [id number] 2016-Present [id number] .[id number] 2016 Unknown [id number] .[id number] 1995 Unknown [id number] 2.16.840.1.001470.3.579.2 .479 1995 Unknown [id number] 2.16.840.1.942364.3.579.2 .479 1995 Unknown [id number] 2.16.840.1.014001.3.579.2 .900 1995 Unknown [id number] 2.16.840.1.023171.3.579.2 .903 1995 Unknown [id number] 2.16.840.1.842363.3.579.2 .903 1995 Unknown [id number] 2.16.840.1.503345.3.579.2 .903 1995 Unknown [id number] 2.16.840.1.127808.3.579.2 .903 1995 Unknown [id number] 2.16.840.1.079512.3.579.2 .903 1995 Unknown [id number] 2.16.840.1.788769.3.579.2 .903 1995 Unknown [id number] 2.16.840.1.315162.3.579.2 .903 1995 Unknown [id number] 2.16.840.1.199928.3.579.2 .174 1995 Unknown [id number] 2.16.840.1.836889.3.579.2 .903 1995 Unknown [id number] 2.16.840.1.057196.3.579.2 .356 1995 Unknown [id number] 2.16.840.1.449471.3.579.2 .356 1995 Unknown [id number] 2.16840.1.123947.3.579.2 .356 1995 Unknown [id number] 2.16840.1.545009.3.579.2 .356 1995 Unknown [id number] 2.16.840.1.877294.3.579.2 .356 1995 Unknown [id number] 2.16.840.1.368414.3.579.2 .356 1995 Unknown [id number] 2.16.840.1.038308.3.579.2 .651 1995 Unknown [id number] 2.16840.1.331704.3.579.2 .651 1995 Unknown [id number] 2.16.840.1.424390.3.579.2 .1245 1995 Unknown [id number] 2.16.840.1.241845.3.579.2 .1245 1995 Unknown [id number] 2.16.840.1.677133.3.579.2 .1244 1995 Unknown [id number] 2.16.840.1.537453.3.579.2 .1244 1995 Unknown [id number] 2.840.1.763405.3.579.2 .124 1995 Unknown [id number] 2.840.1.885008.3.579.2 .124 1995 Unknown [id number] 2.840.1.413583.3.579.2 .1243 1995 Unknown [id number] 2.840.1.486983.3.579.2 .124 1995 Unknown [id number] 2.0.1.417325.3.579.2 .1242 1995 Unknown [id number] 2.840.1.163446.3.579.2 .1242 1995 Unknown [id number] 07.25.830.1.533163.3.579.2 .12406-09-1899 Unknown [id number] Medicaid [place] [id number] Effective for all dates [id number] .7.3.932048.315 Unknown [id number] 840.1.590638.3.579.2 .462 Unknown [id number] 07.25.830.1.313022.3.579.2 .462 Unknown [id number] 07.25.830.1.285864.3.579.2 .462 Unknown [id number] 840.1.807249.3.579.2 .462 Unknown [id number] .840.1.523316.3.579.2 .462 Unknown [id number] 2.840.1.609003.3.579.2 .462 Unknown [id number] 2840.1.251702.3.579.2 .462 Unknown [id number] 840.1.655334.3.579.2 .462 Unknown [id number] 2.16.840.1.885505.3.579.2 .462 Social History Date Type Detail Facility Start: 09-12-2018 End: 05-03-2024 Tobacco smoking status NHIS Current every day smoker [facility] Start: 12-24-2009 End: 06-03-2016 History of tobacco use Cigarette Smoker [facility] Start: 09-12-2018 End: 10-12-2024 Cigarettes smoked current (pack per day) - Reported [facility] Comment on above: 06/10 PPD; Start: 1995 Sex Assigned At Not on file [facility] Start: 02-10-2019 End: 08-17-2022 Alcohol intake Ex-drinker (finding) [facility] Start: 06-23-2016 Alcohol Comment rare [facility] Start: 12-08-2019 End: 05-03-2024 Tobacco use and exposure Never used [facility] Start: 08-07-2022 End: 09-06-2024 Exposure to SARS-CoV-2 (event) Not sure [facility] Tobacco smoking consumption unknown [facility] Start: 12-13-2022 End: 10-12-2024 Tobacco use panel [facility] Work Phone: Start: 1995 Sex Assigned At Female [facility] [employer] Start: 09-20-2022 Gender identity Identifies as female gender (finding) [facility] Work Phone: Start: 09-20-2022 Sexual orientation Bisexual (finding ) [facility] Work Phone: Start: 08-19-2023 End: 11-18-2024 Alcohol intake Current non-drinker of alcohol (finding) [facility] Start: 12-11-2016 National Score (1-100), lower number is lower risk 80 [facility] Start: 04-18-2024 End: 09-06-2024 Alcoholic beverage intake Lifetime non-drinker (finding) [facility] Work Phone: The thought of harming myself has occurred to me Never [facility] Start: 05-03-2024 Education 15 [facility] Start: 03-27-2024 [facility] Start: 05-28-2024 Sexual orientation Heterosexual (sammy zain) [facility] Start: 09-06-2024 Tobacco Comment Smokes 2 cigar ettes a day [facility] Work Phone: Start: 09-24-2024 Sex Female (finding) [place] [facility] NEGATED: Highlighted row - - [facility] Work Phone: Medical Equipment Procedure Code Equipment Code Equipment Origin al Text Equipment Identifier Dates [id number] Start: 05-05-2018 End: 05-04-2024 Inject 1 each as directed 2 (two) times a day as needed . [id number] Start: 05-05-2018 by Miscellaneous route daily as needed . [id number] Start: 02-22-2019 Inject 1 each as directed daily as needed . [id number] Start: 02-22-2019 Accu-Chek Soraya Plus In Vitro Strip TEST ONCE DAILY. Quantity: 1 Refills: 3 Oberhauser DORealn Start : 28-Sep-2019 Active 100 Strip Box Start: 09-28-2019 Accu-Chek FastCl ix Lancets USE DIRECTED. Quantity: 1 Refills: 3 Oberhauser Real WEBSTERn Start : 28-Sep-2019 Active 102 Unit Box Start: 09-28-2019 Accu-Chek Soraya Plus In Vitro Strip TEST ONCE DAILY. Quantity: 1 Refills: 3 Oberhauser DO, Rich Start : 28-Sep-2019 Active 100 Strip Box Start: 09-28-2019 Accu-Chek FastCl ix Lancets USE DIRECTED. Quantity: 1 Refills: 3 Oberhauser DO, Rich Start : 28-Sep-2019 Active 102 Unit Box Start: 09-28-2019 1 strip 1 (one) time each day. [id number] Start: 11-13-2021 1 (one) time each day. [id number] Inject nightly [id number] Start: 12-13-2022 End: 12-13-2023 Use to inject nightly [id number] Sta rt: 12-20-2022 End: 12-25-2023 Use with lantus pen 10 units at bedtime subcutaneous [id number] Start: 03-17-2023 Use to inject 4 times per day [id number] Start: 12-25-2023 End: 12-24-2024 4 times/day [id number] Start: 05-03-2024 Use with blood g lucose test four times a day. [id number] Start: 06-14-2024 End: 09-27-2024 Use with blood g lucose test four times a day. [id number] Start: 06-14-2024 End: 09-24-2024 Use as instructe d - TEST BLOOD SUGARS 4 TIMES DAILY [id number] Start: 08-03-2024 Use with blood g lucose test four times a day. Insulin Dep? Yes [id number] Start: 08-03-2024 End: 08-10-2024 Use with blood g lucose test four times a day. Insulin Dep? Yes [id number] Start: 08-10-2024 4 TIMES/DAY [id number] Start: 01-13-2025 Goals Date Patient Goal Desired Activity /State Personal health goal Functional Status Date Assessment Result Facility 12-21-2016 Are you deaf, or do you have serious difficulty hearing No 12/21/2016 10:45 AM Krys Du RN No [facility] 12-21-2016 Are you blind, or do you have serious difficulty seeing, even when wearing glasses No 12/21/2016 10:45 AM Krys Du, BETSY No [facility] 12-21-2016 Do you have serious difficulty walking or climbing stairs No 12/21/2016 10:45 AM Krys Du, BETSY No [facility] 12-21-2016 Do you have difficul ty dressing or bathing No 12/21/2016 10:45 AM Krys Du, BETSY No [facility] 12-21-2016 Because of a physica l, mental, or emotional condition, do you have difficulty doing errands alone such as visiting a physician's office or shopping No 12/21/2016 10:45 AM Krys Du, BETSY No [facility] NEGATED: Highlighted row Functional performance Functional status health issues are not documented Disease [place] [address] [employer] Work Phone: Mental Status Date Assessment Result Facility 12-16-2024 Cognitive function Level Of Cons ciousness Awake;Alert [facility] Work Phone: 12-21-2016 Because of a physical, mental, or emotional condition, do you have serious difficulty concentrating, remembering, or making decisions No 12/21/2016 10:45 AM EDT Krys Yung, RN No [facility] NEGATED: Highlighted row Cognitive function [Interpretation] Cognitive status health issues are not documented Disease [address] Work Phone: Clinical Notes 01-01-2017 to 01-20-2025 [...] during that - had macrosomia, delivered in [place]. She was initially diagnosed with type 2 [...] weight. PAST MEDICAL HISTORY Diagnosis Date Asthma ([facility]) Bipolar H/O macrosomia in in prior , currently ([facility]) 05/07/2024 Herpes simplex type 2 (HSV-2) infection affecting , antepartum, unspecified trimester ([facility]) 04/19/2024 Hyperlipidemia LGA (large for gestational age) ([facility]) 12/23/2016 12/23/16 - >95% Polyhydramnios ([facility]) 01/01/2017 Pre-existing type 2 diabetes mellitus in in first trimester ([facility]) 06/15/2024 First trimester Hgb A1c 10.5%, now follows with Dr. Guillermo Recurrent UTI Type 2 diabetes mellitus ([facility]) PAST SURGICAL HISTORY Procedure Laterality Date CHOLECYSTECTOMY [...] times a day. 60 tablet 3 Insulin [place], Disposable, (BD ULTRAFINE III MINI PEN) 31 gauge x 3/16 4 TIMES/DAY 200 each 3 insulin NPH (HUMULIN N NPH INSULIN KWIKPEN) 100 unit/mL (3 mL) injection pen 90 units at bedtime 45 mL 11 lancets (Qual CanalUCH DELICA PLUS LANCET) 30 gauge Use with blood glucose test four times a day. Insulin Dep? Yes 100 Each 11 insulin lispro (HUMALOG KWIKPEN INSULIN) 100 unit/mL 23 -23 - 26 units prior to each meal respectively + scale (upto 100 units/day) 45 mL 11 blood sugar diagnostic (TodayticketsTOUCH VERIO TEST STRIPS) test strip Use as instructed - TEST BLOOD SUGARS 4 TIMES DAILY 150 Each 11 Blood-Glucose Meter (TodayticketsTOUCH VERIO FLEX METER) Use to check blood [...] which included preparing to see the patient, [id number] patient care, completing clinical documentation, obtaining and/or [...] Drug use: No documented in this encounter [facility] 01-20-2025 Note [facility] 01-20-2025 Instructions Kelsy Guillermo DO - [...] blood work prior documented in this encounter [facility] 01-19-2025 History and physical note Pre-Op History and Physical HPI: The patient is a 29 year old female presenting for pre-operative visit. She is scheduled for laparoscopic bilateral salpingectomy , for desires sterilization on 01/28/25. Procedure discussed along with risks, benefits and complications. Other alternatives discussed for management. Consent form signed? Yes. PAST MEDICAL HISTORY Diagnosis Date Asthma (HCC) Bipolar H/O macrosomia in in prior , currently ([facility]) 05/07/2024 Herpes simplex type 2 (HSV-2) infection affecting , antepartum, unspecified trimester ([facility]) 04/19/2024 Hyperlipidemia LGA (large for gestational age) infant ([facility]) 12/23/2016 12/23/16 - >95% Polyhydramnios ([facility]) 01/01/2017 Pre-existing type 2 diabetes mellitus in in first trimester ([facility]) 06/15/2024 First trimester Hgb A1c 10.5%, now follows with Dr. Guillermo Recurrent UTI Type 2 diabetes mellitus ([facility]) PAST SURGICAL HISTORY Procedure Laterality Date CHOLECYSTECTOMY [...] times a day. 60 tablet 3 Insulin [place], Disposable, (BD ULTRAFINE III MINI PEN) 31 gauge x 3/16 4 TIMES/DAY 200 each 3 lancets (ONETOUCH DELICA PLUS LANCET) 30 gauge [...] Topics Alcohol use: No Drug use: No [facility] 01-19-2025 History and physical note Pre-Op History and Physical HPI: The patient is a 29 year old female presenting for pre-operative visit. She is scheduled for laparoscopic bilateral salpingectomy , for desires sterilization on 01/28/25. Procedure discussed along with risks, benefits and complications. Other alternatives discussed for management. Consent form signed? Yes. PAST MEDICAL HISTORY Diagnosis Date Asthma ([facility]) Bipolar H/O macrosomia in in prior , currently ([facility]) 05/07/2024 Herpes simplex type 2 (HSV-2) infection affecting , antepartum, unspecified trimester ([facility]) 04/19/2024 Hyperlipidemia LGA (large for gestational age) infant ([facility]) 12/23/2016 12/23/16 - >95% Polyhydramnios ([facility]) 01/01/2017 Pre-existing type 2 diabetes mellitus in in first trimester ([facility]) 06/15/2024 First trimester Hgb A1c 10.5%, now follows with Dr. Guillermo Recurrent UTI Type 2 diabetes mellitus ([facility]) PAST SURGICAL HISTORY Procedure Laterality Date CHOLECYSTECTOMY [...] times a day. 60 tablet 3 Insulin [place], Disposable, (BD ULTRAFINE III MINI PEN) 31 gauge x 3/16 4 TIMES/DAY 200 each 3 lancets (TodayticketsTOUCH DELICA PLUS LANCET) 30 gauge Use with blood glucose test four times a day. Insulin Dep? Yes 100 Each 11 blood sugar diagnostic (TodayticketsTOUCH VERIO TEST STRIPS) test strip Use as instructed - TEST BLOOD SUGARS 4 TIMES DAILY 150 Each 11 Blood-Glucose Meter (Qual CanalUCH VERIO FLEX METER) Use to check blood [...] Drug use: No documented in this encounter [facility] 01-19-2025 Note [facility] 01-19-2025 History of Presen t illness Narrative VISIT Melissa Byrne is a 29 year old year old here for visit. Delivery Summary: 12/07/24 F- Nalle[place] ROS/ Recovery: Feeding: Bottle feeding problems: None Menses since delivery: none Menstrual pattern prior to : Regular periods [place] since delivery: Resumed Depression: denies symptoms of [...] harming myself has occurred to me. Never [place] Depression Scale Total 16 Feeling nervous, anxious, [...] N/A PAST MEDICAL HISTORY Diagnosis Date Asthma (HCC) Bipolar H/O macrosomia in infant in prior , currently ([facility]) 05/07/2024 Herpes simplex type 2 (HSV-2) infection affecting , antepartum, unspecified trimester ([facility]) 04/19/2024 Hyperlipidemia LGA (large for gestational age) ([facility]) 12/23/2016 12/23/16 - >95% Polyhydramnios ([facility]) 01/01/2017 Pre-existing type 2 diabetes mellitus in in first trimester ([facility]) 06/15/2024 First trimester Hgb A1c 10.5%, now follows with Dr. Guillermo Recurrent UTI Type 2 diabetes mellitus ([facility]) PAST SURGICAL HISTORY Procedure Laterality Date CHOLECYSTECTOMY [...] discussed with the Patient or Patient's Authorized Therapy Aide. As applicable, any other physician, advance practice provider, medical student, or other health professional student that will be observing or involved in the sensitive examination for educational or training purposes was discussed with the Patient or Authorized Therapy Aide. The Patient or Authorized Therapy Aide has agreed to proceed with the sensitive [...] external genitalia normal, normal Bartholin's glands, urethra, [place]'s glands, no vulvar lesions, no cervical lesions, [...] Whit Patel MD documented in this encounter [facility] 12-21-2024 Note [facility] 12-21-2024 History of Presen t illness Narrative [...] in parent's room, does not feel rested [place] since delivery: Not resumed Emotional support: Yes [...] William Gramajo MD documented in this encounter [facility] 12-16-2024 History and physi vicenta note [facility] 12-16-2024 Telephone encount er Note Patient notified and instructions given to go to L&D for evaluation. [facility] 07-10-2025 Miscellaneous Notes Formattin g of this note [...] No openings tomorrow. documented in this encounter [facility] 12-16-2024 Telephone encount er Note to L&D for eval for preeclampsia. Piper Julian MD [facility] 12-16-2024 Telephone encount er Note Patient [...] d/t headache & swelling. No openings tomorrow. [facility] 12-15-2024 Telephone encount er Note Reviewed [...] you need anything in the interim- thanks! NILES [facility] 12-15-2024 Miscellaneous Notes Formattin g of [...] you need anything in the interim- thanks! NILES documented in this encounter [facility] 12-09-2024 Progress note Note Date/Time December 09, 2024 8:46a m [facility] Medical Records Department [address] [place] [address] Progress Note - OBGYN 12/09/24 0845 MR#: [id number] Acct: [id number] Name: MELISSA BYRNE Rep #:[id number] : 1995 29 From: Krys Kulkarni MD PCP: Dr. Jamari Byrne MD Status:ADM IN Location: KO084-2 Subjective Subjective Doing well. Ambulating and voiding [...] Cosigner Signature (if applicable): CC: ~ Signed [facility] Work Phone: 1(544) 535-598007-03-2025 [facility] Medical Records Department [facility] [place] [address] Discharge Summary 12/09/24 0846 MR#: [id number] Acct: [id number] Name: MELISSA BYRNE Rep #: [id number] : 1995 29 From: Krys Kulkarni MD PCP: Dr. Jamari Byrne MD Status:DIS IN Location: [place] 610618-1 Providers Date of Admission: 12/07/24 Date of [...] 1-2 and 6 weeks or as needed. [phone] Meaningful Use Info Meaningful Use Meaningful Use [...] can be placed): Home, Self Care 12/09/24 1835 Cosigner Signature (if applicable): CC: Dr. Jamari Byrne MD; Dr. Krys Kulkarni MD [facility]igned[facility] Progress note [facility] Medical Records Department [address] [place] [address] Progress Note - OBGYN 12/09/24 0845 MR#: [id number] Acct: [id number] Name: MELISSA BYRNE Rep #:[id number] : 1995 29 From: Krys Kulkarni MD PCP: Dr. Jamari Byrne MD Status:ADM IN Location: NE919-1 Subjective Subjective Doing well. Ambulating and voiding [...] Cosigner Signature (if applicable): CC: ~ Signed [facility]07-02-2025 Telephone encounter Note* Telephone Encounter - Piper Julian MD - 12/08/2024 6:26 PM EDT nevermind, patient had plan in a [employer] message, I didn't see it initially. Thanks. RLR [facility]07-02-2025 Miscellaneous Notes* Telephone Encounter - Piper Julian MD - 12/08/2024 6:26 PM EDT nevermind, patient had plan in a [employer] message, I didn't see it initially. Thanks. RLR * Telephone Encounter - Piper Julian MD - 12/08/2024 5:55 PM EDT Hoda delivered at [facility] on 12/07/24. We have her on insulin and would like to know if we should keep her on half her dose until follow up in January? Thanks! Piper Julian MD [facility] Telephone encounter Note * Telephone Encounter - Piper Julian MD - 12/08/2024 5:55 PM EDT Hoda delivered at [facility] on 12/07/24. We have her on insulin and would like to know if we should keep her on half her dose until follow up in January? Thanks! Piper Julian MD [facility]07-02-2025 Progress note Author Mariajose Nickerson [facility] Note Date/Time December 08, 2024 12:30 pm [facility] Medical Records Department [address] [place] [id number] Progress Note - OBGYN 12/08/24 0837 MR#: [id number] Acct: [id number] Name: MELISSA BYRNE Rep #:[id number] : 1995 29 From: Mariajose Nickerson [facility] PCP: Dr. Jamari Byrne MD Status:ADM IN Location: DX410-4 Subjective Subjective Patient seen at bedside. Denies [...] % (Auto) 70.0, Lymph % (Auto) 22.0, [place]% (Auto) 6.0, Eos % (Auto) 1.0, Baso [...] 1230 <Electronically signed by Mariajose Nickerson CNM> Cosigner Signature (if applicable): CC: ~ Signed [facility] Work Phone: 1(950) 161-939707-02-2025 NoteHNO ID: [id number] Author: KRYS MURCIA RN Service: ? Author Type: Registered Nurse Type: Progress Notes Filed: 12/08/2024 13:54 Note Text: Patient delivered via at [facility] on 12/07/24 per William Gramajo MD . See OB Outcome note. [facility] History of Present illness Narrative* Krys Murcia RN - 12/08/2024 1:52 PM EDT Patient delivered via at [facility] on 12/07/24 per William Gramajo MD . See OB Outcome note. Krys Murcia RN documented [facility]07-[facility]-2025 Progress note [facility] Medical Records Department [address] [place] [address] Progress Note - OBGYN 12/08/24 0837 MR#: [id number] Acct: [id number] Name: CHAVEZMELISSAIAN CROWE Rep #:[id number] : 1995 29 From: Mariajose Nickerson CNM PCP: Dr. Jamari Byrne MD Status:ADM IN Location: XG795-2 Subjective Subjective Patient seen at bedside. Denies [...] % (Auto) 70.0, Lymph % (Auto) 22.0, [place]% (Auto) 6.0, Eos % (Auto) 1.0, Baso [...] Cosigner Signature (if applicable): CC: ~ Signed [facility]07-01-2025 Procedure note [facility] Medical Records Department [address] [place] [address] OB Vaginal Delivery 12/07/242023 MR#: [id number] Acct: [id number] Name: MELISSA BYRNE Rep #:[id number] : 1995 29 From: William Gramajo MD PCP: Dr. 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 Jamari Byrne MD; Dr. 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 Jamari Byrne MD Status:ADM IN [facility] - General General Date of Admission: [...] Byrne MD; Dr. 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 Jamari Byrne MD Status:ADM IN Location: BA345-0 HPI - General General Date of Admission: [...] Byrne MD; Dr. William Gramajo MD~ Signed [facility]06-30-2025 Note Indication Evaluation of well-being Maternal obesity, [...] RDMS, RVT Read By: Pooja Latham M.D.MATERNAL [id number] Progress note* Quick Notes - Ronaldo Rubio MD - 12/06/2024 10:22 AM EDT Ab1 at 38w2ds with improved controlled type 2 diabetes using insulin BPP today 01/14 with VI 10 cm . Reports occ [facility] Induction scheduled for tomorrow Patient reports good FM Denies bleeding or LOF 2+ dtr. Ronaldo Rubio MD [facility] Work Phone: 1(263) 194-669806-30-2025 Miscellaneous Notes* Quick Notes - Ronaldo Rubio MD - 12/06/2024 10:22 AM EDT Ab1 at 38w2ds with improved controlled type 2 diabetes using insulin BPP today 01/14 with VI 10 cm . Reports occ [facility] Induction scheduled for tomorrow Patient reports good FM Denies bleeding or LOF 2+ dtr. Ronaldo Rubio MD documented [facility]06[facility] Telephone encounter Note * Telephone Encounter [...] again next week (if applicable!)- thanks! KB [facility]06-30-2025 Miscellaneous Notes* Telephone Encounter - Kelsy [...] (if applicable!)- thanks! KB documented in [facility] encounterS[facility]06-30-2025 Instructions* Patient Instructions* Renetta Petersen MA - 12/06/2024 8:22 AM EDT SEQUENTIAL SCREENINGS The [facility] offers sequential screenings for women who [...] testing. It will require an appointment withour supervisor sound technician. This is not an ultrasound performed [...] the above symptoms, contact our office at [phone] and ask to speak with anurse. After hours, you can call doctors registry at [phone] OR call [facility] at [phone] ask to have the doctor home energy consultant supervisor paged. If you consider this an emergency, dial 8-1- or go to your nearest emergency department. NEED HELP? Are you dealing with a violent or abusive relationship? Are you a victim of rape or sexual assult? Call [facility] ([place]) 24 hour Crisis Hotline: 387.931.6823 or 240-881-5439. MANUAL Your Guide to a Healthy manual is now on-line. Visit [email or web address] to download your free copy documented in this encounterShel[facility]06-26-2025 [facility]06[facility] History of Present illness Narrative* Keshav Loving [...] SIGNATURE: Keshav Loving DO documented in this encounterShel[facility] Hospital06-26-2025 Progress note* Quick Notes - Keshav [...] week. NST reactive today Keshav Loving DO [facility]06-26-2025 Miscellaneous Notes* Quick Notes - Keshav [...] today Keshav Loving DO documented in this encounterShel[facility]06-26-2025 Instructions* Patient Instructions* Rebeca Vazquez MA - 12/02/2024 10:05 AM EDT SEQUENTIAL SCREENINGS The [facility] offers sequential screenings for women who [...] testing. It will require an appointment withour supervisor sound technician. This is not an ultrasound performed [...] the above symptoms, contact our office at [phone] and ask to speak with anurse. After hours, you can call doctors registry at [phone] OR call [facility] at [phone] ask to have the doctor home energy consultant supervisor paged. If you consider this an emergency, dial [phone] or go to your nearest emergency department. NEED HELP? Are you dealing with a violent or abusive relationship? Are you a victim of rape or sexual assult? Call [facility] ([facility] 24 hour Crisis Hotline: 637.421.8199 or 295-648-3382. MANUAL Your Guide to a Healthy manual is now on-line. Visit [email or web address] to download your free copy documented in this encounterCleveland [id number] Telephone encounter Note * Telephone Encounter - [...] Will review again next week- thanks! KB [facility]06-25-2025 Miscellaneous Notes* Telephone Encounter - Kelsy [...] next week- thanks! KB documented in this encounterShel[facility]06-24-2025 Note Indication Evaluation of well-being Maternal [...] RDMS, RVT Read By: Elie Coronado M.D.MATERNAL [id number] Progress note* Quick Notes - William Gramajo [...] labor & FM precautions William Gramajo MD [facility]06-19-2025 Miscellaneous Notes* Quick Notes - William [...] GBS bacteruria Orders: URINE OB DIP B/O Dr.March rodriguez about induction timing. Will schedule 37-39 weeks. Reviewed labor & FM precautions William Gramajo MD documented in this encounterShel[facility] Hospital06-19-2025 [facility]Ak[facility]06-[facility] History of Present illness Narrative* William Gramajo [...] SIGNATURE: William Gramajo MD documented in this encounterSheltering [facility] Hospital06-19-2025 Instructions* Patient Instructions* Teri Jack MA - 11/25/2024 8:48 AM EDT SEQUENTIAL SCREENINGS The [facility] offers sequential screenings for women who [...] testing. It will require an appointment withour supervisor sound technician. This is not an ultrasound performed [...] the above symptoms, contact our office at [phone] and ask to speak with anurse. After hours, you can call doctors registry at [phone] OR call [facility] at [phone] ask to have the doctor home energy consultant supervisor paged. If you consider this an emergency, dial 9-1-9 or go to your nearest emergency department. NEED HELP? Are you dealing with a violent or abusive relationship? Are you a victim of rape or sexual assult? Call [facility] ([place]) 24 hour Crisis Hotline: 235.231.3655 or 659-088-9834. MANUAL Your Guide to a Healthy manual is now on-line. Visit [email or web address] to download your free copy documented in this encounterShel[facility] Hospital06-[facility] Telephone encounter Note * Telephone Encounter [...] review again next week- thanks! Dr Guillermo [facility]06-19-2025 Miscellaneous Notes* Telephone Encounter - Kelsy [...] week- thanks! Dr Guillermo documented in this encounterSheltering Arms Hospital06-16-2025 Telephone encounter Note * Telephone Encounter - Piper Julian MD - 11/22/2024 12:31 PM EDT noted. We did receive a note from them at one point. She should follow up as they recommend and it is ok for her to undergo treatments during . Piper Julian MD [facility]06-16-[facility]25 Miscellaneous Notes* Telephone Encounter - Piper Julian MD - 11/22/2024 12:31 PM EDT noted. We did receive a note from them at one point. She should follow up as they recommend and it is ok for her to undergo treatments during . Piper Julian MD documented in this encounterSheltering Arms Hospital06-16-2025 Note Indication Evaluation of growth, Evaluation [...] 13 oz EFW by: Hadlock (HC-AC-FL) Extended Psychologist Educational 7.4 mm Extremities / Bony Struc [place] [...] RDMS, RVT Read By: Alondra Segundo M.D.MATERNAL [id number] NoteAkron [facility]06-[facility] History of Present illness Narrative* Keshav Loving [...] SIGNATURE: Keshav Loving DO documented in this encounterSheltering Arms Hospital06-12-2025 Progress note* Quick Notes - Keshav [...] Keep scheduled follow up Keshav Loving DO [facility]06-12-2025 Miscellaneous Notes* Quick Notes - Keshav [...] up Keshav Loving DO documented in this encounterSheltering Arms Hospital06-12-2025 Instructions* Patient Instructions* Rebeca Vazquez MA - 11/18/2024 2:25 PM EDT SEQUENTIAL SCREENINGS [facility] offers sequential screenings for women who [...] testing. It will require an appointment withour supervisor sound technician. This is not an ultrasound performed [...] the above symptoms, contact our office at [phone] and ask to speak with anurse. After hours, you can call doctors registry at [phone] OR call [facility] at [phone] ask to have the doctor home energy consultant supervisor paged. If you consider this an emergency, dial 9-1-4 or go to your nearest emergency department. NEED HELP? Are you dealing with a violent or abusive relationship? Are you a victim of rape or sexual assult? Call [facility] ([place]) 24 hour Crisis Hotline: 881.123.5542 or 124-156-3050. MANUAL Your Guide to a Healthy manual is now on-line. Visit [email or web address] to download your free copy documented in this encounterSheltering Arms Hospital06-11-2025 NoteAkron [facility]06-10-2025 Telephone encounter Note* Telephone Encounter - Kelsy Guillermo DO - 11/16/2024 8:00 AM EDT Reviewed BG data- responded as follows: Hectro Drummond- I reviewed your BG data- these [...] Will review again next week- thanks! KB [facility]06-10-2025 Miscellaneous Notes* Telephone Encounter - Kelsy [...] next week- thanks! KB documented in this encounterSheltering Arms Hospital06-09-2025 Note Indication Evaluation of well-being Maternal [...] RDMS, RVT Read By: Pooja Latham M.D.MATERNAL [id number] Progress note* Quick Notes - Keshav Loving [...] - RTO 1 wk Keshav Loving DO [facility]06-09-2025 Miscellaneous Notes* Quick Notes - Keshav [...] wk Keshav Loving DO documented in this encounterSheltering Arms Hospital06-09-2025 Instructions* Patient Instructions* Rebeca Vazquez MA - 11/15/2024 8:24 AM EDT SEQUENTIAL SCREENINGS The [facility] offers sequential screenings for women who [...] testing. It will require an appointment withour supervisor sound technician. This is not an ultrasound performed [...] the above symptoms, contact our office at [phone] and ask to speak with anurse. After hours, you can call doctors registry at [phone] OR call [facility] at [phone] ask to have the doctor home energy consultant supervisor paged. If you consider this an emergency, dial 9--1 or go to your nearest emergency department. NEED HELP? Are you dealing with a violent or abusive relationship? Are you a victim of rape or sexual assult? Call [facility] ([place]) 24 hour Crisis Hotline: 782.719.8120 or 548-355-4448. MANUAL Your Guide to a Healthy manual is now on-line. Visit [email or web address] to download your free copy documented in this encounterSheltering Arms Hospital06-05-2025 Progress note* Quick Notes - Krys [...] 2 diabetes mellitus in in third trimester ([facility]) - ICD9: 648.03, 250.00, ICD10: O24.113 (primary diagnosis) - Controlled - URINE OB DIP B/O 2. pruritus, third trimester (HCC) - ICD9: 646.83, 698.9, ICD10: O99.713, L29.9 Labs normal - URINE OB DIP B/O 3. History of pre-eclampsia - ICD9: V13.29, ICD10: Z87.59 TruBP normal - URINE OB DIP B/O 4. H/O macrosomia in infant in prior , currently ([facility]) - ICD9: V23.49, ICD10: O09.299 - URINE OB DIP B/O 5. 34 weeks gestation of ([facility]) - ICD9: V22.2, ICD10: Z3A.34 - URINE OB DIP B/O Krys Kulkarni MD [facility]06-05-2025 Miscellaneous Notes* Quick Notes - Krys [...] 2 diabetes mellitus in in third trimester ([facility]) - ICD9: 648.03, 250.00, ICD10: O24.113 (primary diagnosis) - Controlled - URINE OB DIP B/O 2. pruritus, third trimester ([facility]) - ICD9: 646.83, 698.9, ICD10: O99.713, L29.9 Labs normal - URINE OB DIP B/O 3. History of pre-eclampsia - ICD9: V13.29, ICD10: Z87.59 TruBP normal - URINE OB DIP B/O 4. H/O macrosomia in in prior , currently ([facility]) - ICD9: V23.49, ICD10: O09.299 - URINE OB DIP B/O 5. 34 weeks gestation of ([facility]) - ICD9: V22.2, ICD10: Z3A.34 - URINE OB DIP B/O Krys Kulkarni MD documented in this encounterSheltering Arms Hospital06-05-2025 Instructions* Patient Instructions* Renetta Petersen MA - 11/11/2024 9:11 AM EDT SEQUENTIAL SCREENINGS The [facility] offers sequential screenings for women who [...] testing. It will require an appointment withour supervisor sound technician. This is not an ultrasound performed [...] the above symptoms, contact our office at [phone] and ask to speak with anurse. After hours, you can call doctors registry at [phone] OR call [facility] at [phone] ask to have the doctor home energy consultant supervisor paged. If you consider this an emergency, dial 9-5-7 or go to your nearest emergency department. NEED HELP? Are you dealing with a violent or abusive relationship? Are you a victim of rape or sexual assult? Call [facility] ([place]) 24 hour Crisis Hotline: 686.978.1031 or 707-017-5950. MANUAL Your Guide to a Healthy manual is now on-line. Visit [email or web address] to download your free copy documented in this encounterSheltering [facility] Hospital06-02-2025 Note Indication Evaluation of well-being Maternal [...] movements 2: tone 2: Amniotic fluid volume /8 Biophysical profile score Anatomy sex: female. Performed By: Idania Snyder RDMS, RVT Read By: Pooja Latham M.D.MATERNAL [id number] History of Present illness Narrative* Krys Kulkarni MD - 11/05/2024 11:22 AM EDT NST SUMMARY PROVIDER ASSESSMENT AND INTERPRETATION Indications for NST: Diabetes - Insulin Controlled Baseline: 140 Variability: Moderate Accelerations: Present 15 X 15 Decelerations: None Interpretation: Reactive SIGNATURE: Krys Kulkarni MD documented in this encounterSheltering Arms Hospital05-30-2025 NoteAkron [facility]05-30-2025 Progress note* Quick Notes - Krys Kulkarni [...] diabetes mellitus in in third trimester (HCC) - ICD9: 648.03, 250.00, ICD10: O24.113 Sees endocrine for management. Stable this week Optho complete and f/u in Jan NST and BPP weekly - URINE OB DIP B/O 4. Supervision of high risk in third trimester ([facility]) - ICD9: V23.9, ICD10: O09.93 - URINE OB DIP B/O Krys Kulkarni MD [facility]05-30-2025 Miscellaneous Notes* Quick Notes - Krys [...] ago ASSESSMENT/PLAN: 1. 33 weeks gestation of ([facility]) - ICD9: V22.2, ICD10: Z3A.33 (primary diagnosis) PTL precautions - URINE OB DIP B/O 2. pruritus Shemar acids and LFTs ordered - URINE OB DIP B/O 3. Pre-existing type 2 diabetes mellitus in in third trimester ([facility]) - ICD9: 648.03, 250.00, ICD10: O24.113 Sees endocrine for management. Stable this week Optho complete and f/u in Jan NST and BPP weekly - URINE OB DIP B/O 4. Supervision of high risk in third trimester ([facility]) - ICD9: V23.9, ICD10: O09.93 - URINE OB DIP B/O Krys Kulkarni MD documented in this encounterSheltering Arms Hospital05-30-2025 Instructions* Patient Instructions* Rebeca Vazquez MA - 11/05/2024 10:18 AM EDT SEQUENTIAL SCREENINGS The [facility] offers sequential screenings for women who [...] testing. It will require an appointment withour supervisor sound technician. This is not an ultrasound performed [...] the above symptoms, contact our office at [phone] and ask to speak with anurse. After hours, you can call doctors registry at [phone] OR call [facility] at [phone] ask to have the doctor home energy consultant supervisor paged. If you consider this an emergency, dial 9-1-1 or go to your nearest emergency department. NEED HELP? Are you dealing with a violent or abusive relationship? Are you a victim of rape or sexual assult? Call [facility] [place] ([facility] 24 hour Crisis Hotline: 208.205.3396 or 186-950-2021. MANUAL Your Guide to a Healthy manual is now on-line. Visit [email or web address] to download your free copy documented in this encounterSheltering Arms Hospital05-29-2025 Miscellaneous Notes* Forensic/STEPHY/Chava - Alicia Pitts RN - 11/04/2024 1:00 PM EDTSummartayler: Gardenia Wheeler Consult Note 11/04/24 [email or web address] Rep[employer] Technician Note [facility]: [facility] Completed by: Alicia Pitts RN Date: November 04, 2024 [email or web address] Resource Time: 2.5 hours Consult Code:A and D Consult Type: In-person outpatient Safety Concerns: No Melissa Byrne [phone] Preferred Name: Hoda OB Provider: Piper Julian Estimated Date of Delivery: 12/18/24 Designated Support People: fob- Alexi and mother- Anabella Labor Plan at time of Consult: Vaginal, Medicated, Breast milk Primary Themes During Consult: Relationship with partner, family, sterilization tech, caregiver Fear of unknown Primary Triggers: Restriction [...] 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 The last week of the month is very hard for them. She is aware that social service is available to talk. documented in this encounterSheltering Arms Hospital05-29-2025 Progress note* Forensic/SANE/MPower - Alicia Pitts RN - 11/04/2024 1:00 PM EDTSummary: Gardenia Wheeler Consult Note 11/04/24 [employer] Technician Note [facility] Name: [facility] Completed by: Alicia Pitts RN Date: November 04, 2024 [employer] Resource Time: 2.5 hours Consult Code:A and D Consult Type: In-person outpatient Safety Concerns: No Melissa Byrne [id number] Preferred Name: Hoda OB Provider: Piper Julian Estimated Date of Delivery: 12/18/24 Designated Support People: fob- Alexi and mother- Anabella Labor Plan at time of Consult: Vaginal, Medicated, Breast milk Primary Themes During Consult: Relationship with partner, family, sterilization tech, caregiver Fear of unknown Primary Triggers: Restriction [...] 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 The last week of the month is very hard for them. She is aware that social service is available to talk. [facility]05-29-[facility] History of Present illness Narrative* Carrie Larsen, RD - 11/04/2024 11:00 AM EDT [facility] Medical Nutrition Therapy Follow up Visit Type: In-Person (Face to Face): [facility] Nutritional Visit: MNT/DIABETES Medical Diagnosis: Type 2 [...] 191 lbs Pre- BMI: 34.9 TW lbs [place] [facility] Weight Gain Recommendations for : [...] during that - had macrosomia, delivered in [place]. -She was initially diagnosed with type 2 [...] TABLETS BY MOUTH EVERY DAYAT BEDTIME lancets (TodayticketsTOUCH DELICA PLUS LANCET) 30 gauge Use with blood glucose test four times a day. Insulin Dep? Yes insulin lispro (HUMALOG KWIKPEN INSULIN) 100 unit/mL 23 -23 - 26 units prior to each meal respectively + scale (upto 100 units/day) blood sugar diagnostic (Qual CanalUCH VERIO TEST STRIPS) test strip Use as instructed - TEST BLOOD SUGARS 4 TIMES DAILY Blood-Glucose Meter (TodayticketsTOUCH VERIO FLEX METER) Use to check blood glucose 4 times daily. busPIRone (BUSPAR) 15 mg tablet albuterol HFA (PROVENTIL HFA, VENTOLIN HFA) 90 mcg/actuation inhaler Inhale 2 Puffs as instructed every 6 hours as needed. VIT 10-IRON FUM-FOLIC ORAL Take by mouth. Insulin [place], Disposable, (BD ULTRAFINE III MINI PEN) 31 [...] Larsen M.S., RDN, LD documented in this encounterSheltering Arms Hospital05-29-2025 NoteAkron Children'S Hospital05-29-2025 History of Present illness Narrative* Kelsy Guillermo [...] during that - had macrosomia, delivered in [place]. She was initially diagnosed with type 2 [...] overall. PAST MEDICAL HISTORY Diagnosis Date Asthma ([facility]) Bipolar H/O macrosomia in in prior , currently ([facility]) 05/07/2024 Herpes simplex type 2 (HSV-2) infection affecting , antepartum, unspecified trimester ([facility]) 04/19/2024 Hyperlipidemia LGA (large for gestational age) ([facility]) 12/23/2016 12/23/16 - >95% Polyhydramnios ([facility]) 01/01/2017 Pre-existing type 2 diabetes mellitus in in first trimester ([facility]) 06/15/2024 First trimester Hgb A1c 10.5%, now follows with Dr. Guillermo Recurrent UTI Type 2 diabetes mellitus ([facility]) PAST SURGICAL HISTORY Procedure Laterality Date CHOLECYSTECTOMY [...] EVERY DAYAT BEDTIME 180 tablet 1 lancets (TodayticketsTOUCH DELICA PLUS LANCET) 30 gauge Use with blood glucose test four times a day. Insulin Dep? Yes 100 Each 11 insulin lispro (HUMALOG KWIKPEN INSULIN) 100 unit/mL 23 -23 - 26 units prior to each meal respectively + scale (upto 100 units/day) 45 mL 11 blood sugar diagnostic (Qual CanalUCH VERIO TEST STRIPS) test strip Use as instructed - TEST BLOOD SUGARS 4 TIMES DAILY 150 Each 11 Blood-Glucose Meter (Qual CanalUCH VERIO FLEX METER) Use to check blood glucose 4 times daily. 1 Each 0 busPIRone (BUSPAR) 15 mg tablet albuterol HFA (PROVENTIL HFA, VENTOLIN HFA) 90 mcg/actuation inhaler Inhale 2 Puffs as instructed every 6 hours as needed. VIT 10-IRON FUM-FOLIC ORAL Take by mouth. Insulin [place], Disposable, (BD ULTRAFINE III MINI PEN) 31 [...] which included preparing to see the patient, [id number] patient care, completing clinical documentation, obtaining and/or reviewing separately obtained history, performing a medically appropriate examination, counseling and educating the pat ient/family/caregiver, and ordering medications, tests, or procedures. Kelsy Guillermo DO documented in this encounterSheltering Arms Hospital05-29-2025 NoteAkron Children'S [facility]05-29-2025 Instructions* Patient Instructions* Kelsy Guillermo DO - [...] (virtual or in person) documented in this encounterSheltering Arms Hospital05-28-2025 Telephone encounter Note * Telephone Encounter - Charlette Starkey RN - 11/03/2024 10:31 AM EDT Order signed and faxed. Charlette Starkey RN [facility]05-28-2025 Miscellaneous Notes* Telephone Encounter - Charlette Starkey RN - 11/03/2024 10:31 AM EDT Order signed and faxed. Charlette Starkey RN * Telephone Encounter - Charlette Starkey RN - 10/29/2024 2:44 PM EDT Breast pump order received from [employer]. To RR to sign. Charlette Starkey RN documented in this encounterSheltering Arms Hospital05-28-2025 Telephone encounter Note * Telephone Encounter - Piper Julian MD - 11/03/2024 10:13 AM EDT noted, we will encourage f/u w/ optho. Piper Julian MD [facility]05-28-2025 Miscellaneous Notes* Telephone Encounter - Piper Julian MD - 11/03/2024 10:13 AM EDT noted, we will encourage f/u w/ optho. Piper Julian MD * Telephone Encounter - Brenda Lares RN - 11/02/2024 11:30 AM EDT I called patient's retinal specialist and spoke with nurse Smith, in Dr Holloway's office at [facility] ph [phone] @ the request of Dr Pooja Latham. [...] inform doctor. Letter has been scanned into [employer]. documented in this encounterSheltering Arms Hospital05-27-2025 Telephone encounter Note * Telephone Encounter - Brenda Lares RN - 11/02/2024 11:30 AM EDT I called patient's retinal specialist and spoke with nurse Smith in Dr Holloway's office at [facility] ph [phone] @ the request of Dr Pooja Latham. [...] inform doctor. Letter has been scanned into [employer]. [facility]05-27-2025 NoteHNO ID: [id number] Author: WILLIAM GRAMAJO MD Service: ? Author Type: Physician Type: Progress Notes Filed: 11/02/2024 11:32 Note Text: N/[facility]ClevC[facility] History of Present illness Narrative* William Gramajo MD - 11/02/2024 11:30 AM EDT N/a documented in this encounterSheltering Arms Hospital05-27-2025 Progress note* Quick Notes - William Gramajo MD - 11/02/2024 11:02 AM EDT KJ - S: Hoda denies LOF, contractions or vaginal bleeding. O: 33w3d, see flow sheet SENSITIVE EXAM: Sensitive exam not performed. A/P: Assessment & Plan Pre-existing type 2 diabetes mellitus in in third trimester ([facility]) Managed by . Patient reports overall good control. Orders: URINE OB DIP B/O History of pre-eclampsia Continue aspirin Orders: URINE OB DIP B/O H/O macrosomia in in prior , currently ([facility]) EFW on growth US shows AGA and expected to be smaller than 1st baby. Growth US with MFM today. Orders: URINE OB DIP B/O 33 weeks gestation of ([facility]) Orders: URINE OB DIP B/O Request for sterilization Title 19 papers signed today Herpes simplex type 2 (HSV-2) infection affecting , antepartum, unspecified trimester ([facility]) On acyclovir prophylaxis William Gramajo MD [facility]05-27-2025 Miscellaneous Notes* Quick Notes - William Gramajo MD - 11/02/2024 11:02 AM EDT KJ - S: Hoda denies LOF, contractions or vaginal bleeding. O: 33w3d, see flow sheet SENSITIVE EXAM: Sensitive exam not performed. A/P: Assessment & Plan Pre-existing type 2 diabetes mellitus in in third trimester ([facility]) Managed by . Patient reports overall good control. Orders: URINE OB DIP B/O History of pre-eclampsia Continue aspirin Orders: URINE OB DIP B/O H/O macrosomia in in prior , currently ([facility]) EFW on growth US shows AGA and expected to be smaller than 1st baby. Growth US with MFM today. Orders: URINE OB DIP B/O 33 weeks gestation of ([facility]) Orders: URINE OB DIP B/O Request for sterilization Title 19 papers signed today Herpes simplex type 2 (HSV-2) infection affecting , antepartum, unspecified trimester ([facility]) On acyclovir prophylaxis William Gramajo MD documented in this encounterSheltering Arms Hospital05-27-2025 Instructions* Patient Instructions* Renetta Petersen MA - 11/02/2024 10:43 AM EDT SEQUENTIAL SCREENINGS [facility] offers sequential screenings for women who [...] testing. It will require an appointment withour supervisor sound technician. This is not an ultrasound performed [...] the above symptoms, contact our office at [phone] and ask to speak with anurse. After hours, you can call [email or web address] registry at [phone] OR call [facility] at [phone] ask to have the doctor home energy consultant supervisor paged. If you consider this an emergency, dial 9-1-2 or go to your nearest emergency department. NEED HELP? Are you dealing with a violent or abusive relationship? Are you a victim of rape or sexual assult? Call [facility] ([place]) 24 hour Crisis Hotline: 855.743.8449 or 975-171-4888. MANUAL Your Guide to a Healthy manual is now on-line. Visit [email or web address] to download your free copy documented in this encounterSheltering Arms Hospital05-27-2025 Note Indication Evaluation of well-being Maternal [...] RDMS, RVT Read By: Pooja Latham M.D.MATERNAL [id number] Telephone encounter Note* Telephone Encounter - Charlette Starkey RN - 10/29/2024 2:44 PM EDT Breast pump order received from [employer]. To RR to sign. Charlette Starkey RN [facility]05-19-2025 Progress note* Quick Notes - Piper [...] acyclovir for HSV prophylaxis Piper Julian M.D. [facility]05-19-2025 Miscellaneous Notes* Quick Notes - Piper [...] prophylaxis Piper Julian M.D. documented in this encounterSheltering Arms Hospital05-19-2025 NoteAkron [facility]05-19-2025 History of Present illness Narrative* Piper Julian [...] SIGNATURE: Piper Julian MD documented in this encounterSheltering Arms Hospital05-19-2025 Instructions* Patient Instructions* Renetta Petersen MA - 10/25/2024 9:26 AM EDT SEQUENTIAL SCREENINGS The [facility] offers sequential screenings for women who [...] testing. It will require an appointment withour supervisor sound technician. This is not an ultrasound performed [...] the above symptoms, contact our office at [phone] and ask to speak with anurse. After hours, you can call doctors registry at [phone] OR call [facility] at [phone] ask to have the doctor home energy consultant supervisor paged. If you consider this an emergency, dial 9--5 or go to your nearest emergency department. NEED HELP? Are you dealing with a violent or abusive relationship? Are you a victim of rape or sexual assult? Call [facility] ([place]) 24 hour Crisis Hotline: 631.616.9664 or 040-548-7328. MANUAL Your Guide to a Healthy manual is now on-line. Visit [email or web address] to download your free copy documented in this encounterSheltering Arms Hospital05-13-2025 Telephone encounter Note * Telephone Encounter [...] Will review again next week- thanks! KB [facility]05-13-2025 Miscellaneous Notes* Telephone Encounter - Kelsy [...] next week- thanks! KB documented in this encounterSheltering Arms Hospital05-12-2025 Progress note* Quick Notes - Whit Morton MD - 10/18/2024 4:06 PM EDT DM-Pt doing well. Denies vaginal Bleeding, Leaking fluid, or regular Contractions. Pt reports good movement Physical Exam: Gen: female in no apparent distress Abd: soft, Gravid. Non tender to palpation. See flow sheet @ 31 weeks Assessment & Plan Supervision of high risk in third trimester ([facility]) Orders: URINE OB DIP B/O Pre-existing type 2 diabetes mellitus in in third trimester ([facility]) Sees Endocrinology - states pretty well controlled no adjustment on Insulin per endocrinology last A1c 5.2 down from 7.9 Orders: URINE OB DIP B/O Herpes simplex type 2 (HSV-2) infection affecting , antepartum, unspecified trimester ([facility]) Taking acyclovir H/O macrosomia in in prior , currently ([facility]) [facility] us scheduled History of pre-eclampsia Continue ASA 31 weeks gestation of ([facility]) Kick counts and labor reviewed NSTs and BPP scheduled Orders: URINE OB DIP B/O Whit Patel MD [facility]05-12-2025 Miscellaneous Notes* Quick Notes - Whit Morton MD - 10/18/2024 4:06 PM EDT DM-Pt doing well. Denies vaginal Bleeding, Leaking fluid, or regular Contractions. Pt reports good movement Physical Exam: Gen: female in no apparent distress Abd: soft, Gravid. Non tender to palpation. See flow sheet @ 31 weeks Assessment & Plan Supervision of high risk in third trimester ([facility]) Orders: URINE OB DIP B/O Pre-existing type 2 diabetes mellitus in in third trimester ([facility]) Sees Endocrinology - states pretty well controlled no adjustment on Insulin per endocrinology last A1c 5.2 down from 7.9 Orders: URINE OB DIP B/O Herpes simplex type 2 (HSV-2) infection affecting , antepartum, unspecified trimester ([facility]) Taking acyclovir H/O macrosomia in infant in prior , currently ([facility]) Growth us scheduled History of pre-eclampsia Continue ASA 31 weeks gestation of ([facility]) Kick counts and labor reviewed NSTs and BPP scheduled Orders: URINE OB DIP B/O Whit Patel MD documented in this encounterSheltering [facility] Hospital05-12-[facility]25 Instructions* Patient Instructions* Rebeca Vazquez MA - 10/18/2024 1:34 PM EDT SEQUENTIAL SCREENINGS The [facility] offers sequential screenings for women who [...] testing. It will require an appointment withour supervisor sound technician. This is not an ultrasound performed [...] the above symptoms, contact our office at [phone] and ask to speak with anurse. After hours, you can call doctors registry at [phone] OR call [facility] at [phone] ask to have the doctor home energy consultant supervisor paged. If you consider this an emergency, dial [phone] or go to your nearest emergency department. NEED HELP? Are you dealing with a violent or abusive relationship? Are you a victim of rape or sexual assult? Call [facility] ([place]) 24 hour Crisis Hotline: 731.403.1036 or 138-964-2857. MANUAL Your Guide to a Healthy manual is now on-line. Visit [email or web address] to download your free copy documented in this encounterSheltering Arms Hospital05-10-2025 History and physical note [facility] Medical Records Department [address] [place] [address] OB Triage Physician Note 10/16/24 1838 MR#: [id number] Acct: [id number] Name: MELISSA BYRNE Rep #:[id number] : 1995 29 From: Mariajose Nickerson CNM PCP: Dr. Jamari Byrne MD Status:REG CLI Y Location: [place] [id number] HPI - General HPI Narrative MELISSA BYRNE, [...] Nickerson; Dr. Jamari Byrne MD ~ Signed [facility]05-06-2025 NoteHNO ID: [id number] Author: PAMELA HASKINS MD Service: ? Author Type: Physician Type: Progress Notes Filed: 10/13/2024 09:11 Note Text: Dr. Piper Julian NAME: Melissa Alemaner CLINIC Number.: [id number] Date of : 1995 Date of Visit: [...] pericardial effusion. We discussed these findings with . Melissa Mckoy Chavez. In addition, the limitations of the echocardiogram [...] which included preparing to see the patient, [id number] patient care, completing clinical documentation, obtaining and/or reviewing separately obtained history, performing a medically appropriate examination, counseling and educating the patient/family/caregiver, ordering medications, tests, or procedures, communicating with other HCPs (not separately reported), independently interpreting results (not separately reported), communicating results to the patient/family/caregiver, and care coordination (not separately reported). Sincerely, Dr. Pamela Gutierrez [facility]05-06-2025 History of Present illness Narrative* Pamela Haskins MD - 10/12/2024 6:[address] Piper Julian NAME: Melissa Byrne CLINIC Number.: [id number] Date of : 1995 Date of Visit: [...] which included preparing to see the patient, [id number] patient care, completing clinical documentation, obtaining and/or reviewing separately obtained history, performing a medically appropriate examination, counseling and educating the pat ient/family/caregiver, ordering medications, tests, or procedures, communicating with other HCPs (not separately reported), independently interpreting results (not separately reported), communicatingresults to the patient/family/caregiver, and care coordination (not separately reported). Sincerely, Dr. Pamela Haskins documented in this encounterSheltering [facility] Hospital05-02-2025 Telephone encounter Note * Telephone Encounter [...] Will review again next week- thanks! KB [facility]05-02-2025 Miscellaneous Notes* Telephone Encounter - Kelsy [...] next week- thanks! KB documented in this encounterSheltering Arms Hospital04-28-2025 Progress note* Quick Notes - Piper [...] CULTURE, URINE; Future 29 weeks gestation of ([facility]) Orders: ECG COMPLETE; Future NON-STRESS TEST; Standing PROTEIN / CREATININE RATIO; Future BACTERIAL CULTURE, URINE; Future Pre-existing type 2 diabetes mellitus in in third trimester ([facility]) Orders: ECG COMPLETE; Future NON-STRESS TEST; Standing PROTEIN / CREATININE RATIO; Future BACTERIAL CULTURE, URINE; Future Supervision of high risk in third trimester ([facility]) Orders: ECG COMPLETE; Future NON-STRESS TEST; Standing PROTEIN / CREATININE RATIO; Future BACTERIAL CULTURE, URINE; Future 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 [facility]04-28-2025 Miscellaneous Notes* Quick Notes - Piper [...] CULTURE, URINE; Future 29 weeks gestation of ([facility]) Orders: ECG COMPLETE; Future NON-STRESS TEST; Standing PROTEIN / CREATININE RATIO; Future BACTERIAL CULTURE, URINE; Future Pre-existing type 2 diabetes mellitus in in third trimester ([facility]) Orders: ECG COMPLETE; Future NON-STRESS TEST; Standing PROTEIN / CREATININE RATIO; Future BACTERIAL CULTURE, URINE; Future Supervision of high risk in third trimester ([facility]) Orders: ECG COMPLETE; Future NON-STRESS TEST; Standing PROTEIN / CREATININE RATIO; Future BACTERIAL CULTURE, URINE; Future 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 and NIPT test this previous child had testing at [facility] Pre-existing type 2 diabetes mellitus in in first trimester ([facility]) follows w/ endocrine, hgba1 c controlled dm retinopathy - has f/u w/ optho ecg ordered/encouraged check prot/creat ratio today 28 week labs done Tobacco smoking complicating in first trimester ([facility]) decreased to 2 cig a day, encouraged to quit, support offered History of recurrent UTI (urinary tract infection) recheck culture today 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, 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, unspecifiedwhether long-term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 ([facility]) f/u optho as scheduled Herpes simplex type 2 (HSV-2) infection affecting , antepartum, unspecified trimester ([facility]) prophylaxis ordered, no outbreaks recently taking abx for BV on PNV and ASA start nsts at 32 weeks wait for MFM to read US repeat US in 4 weeks tdap today Medical Decision Making: Problems: Moderate: 1+ chronic illnesses with change Data: Unique test(s) ordered: 3+ Medical Decision Making Level: 4 - Moderate Piper Julian M.D. documented in this encounterSheltering Arms Hospital04-28-2025 Instructions* Patient Instructions* Teri Jack MA - 10/04/2024 11:10 AM EDT SEQUENTIAL SCREENINGS The [facility] offers sequential screenings for women who [...] testing. It will require an appointment withour supervisor sound technician. This is not an ultrasound performed [...] the above symptoms, contact our office at [phone] and ask to speak with anurse. After hours, you can call doctors registry at [phone] OR call [facility] at [phone] ask to have the doctor home energy consultant supervisor paged. If you consider this an emergency, dial [phone] or go to your nearest emergency department. NEED HELP? Are you dealing with a violent or abusive relationship? Are you a victim of rape or sexual assult? Call [facility] ([place]) 24 hour Crisis Hotline: 739.830.7127 or 155-110-3453. MANUAL Your Guide to a Healthy manual is now on-line. Visit [email or web address] to download your free copy documented in this encounterSheltering Arms Hospital04-21-2025 Telephone encounter Note * Telephone Encounter - Juana Terrazas RN - 09/27/2024 4:43 PM EDT [employer] message sent to Pt and Pt read on 09/27/24. Juana Terrazas RN [facility]04-21-2025 Miscellaneous Notes* Telephone Encounter - Juana Terrazas RN - 09/27/2024 4:43 PM EDT Mychart message sent to Pt and Pt read [...] absence. Juana Terrazas RN documented in this encounterSheltering Arms Hospital04-21-2025 Telephone encounter Note * Telephone Encounter - Krys Kulkarni MD - 09/27/2024 1:43 PM EDT Rx sent [facility]04-21-2025 Telephone encounter Note* Telephone Encounter - [...] review in LEE absence. Juana Terrazas RN [facility]04-18-2025 Evaluation note* Diagnosis Onset Date Resolution [...] , antepartum acute October 16, 2024 5:10pm [facility] Work Phone: 1(444) 165-279004-18-2025 Evaluation note* Diagnosis Onset Date Resolution Status Admit Date 27 weeks gestation of [facility] tive September 24, 2024 1:48pm Uterine irritability inactive Apri l 2024 1:48pm Asthma acute October 16, 2024 5:10pm Bipolar 1 disorder acute October 162024 5:10pm History of herpes genitalis acute October 16, 2024 5:10pm Obesity affecting acute October 16, 2024 5:10pm Type 2 diabetes mellitus affecting , antepartum acute October 16, 2024 5:10pm 31 weeks gestation of inac tive October 16, 2024 5:10pm Obesity affecting acute November 15, 2024 3:32pm 35 weeks gestation of [facility] tive November 15, 2024 3:32pm False labor [...] , antepartum acute December 07, 2024 11:00am [facility] Work Phone: 1(373) 286-855204-18-2025 Evaluation note* Diagnosis Onset Date Resolution Status Admit Date 27 weeks gestation of [facility] tive September 24, 2024 1:48pm Uterine irritability inactive Apri l 2024 1:48pm Asthma acute October 16, 2024 5:10pm Bipolar 1 disorder acute October 162024 5:10pm History of herpes genitalis acute October 16, 2024 5:10pm Obesity affecting acute October 16, 2024 5:10pm Type 2 diabetes mellitus affecting , antepartum acute October 16, 2024 5:10pm 31 weeks gestation of c tiOctober 16, 2024 5:10pm Obesity affecting acute [...] diabetes mellitus acute December 16, 2024 7:10pm [facility] Work Phone: 1(291) 168-624704-18-2025 Evaluation note* Diagnosis Onset Date Resolution Status Admit Date 27 weeks gestation of [facility] tiSeptember 24, 2024 1:48pm Uterine irritability inactive Apri l 2024 1:48pm Asthma acute October 16, 2024 5:10pm Bipolar 1 disorder acute October 162024 5:10pm History of herpes genitalis acute October 16, 2024 5:10pm Type 2 diabetes mellitus affecting , antepartum acute October 16, 2024 5:10pm Obesity affecting resolved October 16, 2024 5:10pm 31 weeks gestation of ina tiOctober 16, 2024 5:10pm Obesity affecting resolved November 15, 2024 3:32pm 35 weeks gestation of tiNovember 15, 2024 3:32pm False labor inactive November 15 3:32pm Asthma acute December 07, 2024 11:00am Bipolar 1 disorder acute December 072024 11:00am Diabetes acute December 07, 2024 11:00am History of herpes genitalis acute December 07, 2024 11:00am (spontaneous vaginal delivery) acute December 07, 2024 1 1:00am Type 2 diabetes mellitus affecting , antepartum acute December 07, 2024 11:00am 38 weeks gestation of reso lved December 07, 2024 11:00am Care and examination of lactating mother resolved December 07, 2024 11:00am Obesity affecting resolved December 07, 2024 11:00am Asthma acute December 16 7:10pm Bipolar 1 disorder acute December 072024 7:10pm Headache acute December 16 7:10pm Nausea & vomiting acute December 162024 7:10pm Status post vaginal delivery acute December 16, 2024 7:10pm Type 2 diabetes mellitus acute December 16, 2024 7:10pm [facility] Work Phone: 1(205) 191-107604-18-2025 Telephone encounter Note* Telephone Encounter - Kelsy [...] Will review again next week- thanks! KB [facility]04-18-2025 Miscellaneous Notes* Telephone Encounter - Kelsy [...] next week- thanks! KB documented in this encounterSheltering Arms Hospital04-18-2025 NoteAkron [facility]04-[facility] History of Present illness Narrative* Leonie Waldron [...] discussed with the Patient or Patient's Authorized Therapy Aide. Asapplicable, any other physician, advance practice provider, medical student, or other health professional student that will be observing or involved in the sensitive examination for educational or training purposes was discussed with the Patient or Authorized Therapy Aide. The Patient or Authorized Therapy Aide has agreed to proceed with the sensitive [...] scheduled Leonie Waldron APRN.CNM documented in this encounterSheltering Arms Hospital04-18-2025 Telephone encounter Note * Telephone Encounter - Faina Levin MA - 09/24/2024 8:44 AM EDT OneTouch test strips were sent to [facility] [place] [facility], patient requesting [facility]. Sent patient mychart message to contact [facility] to fill at that location. [facility]04-18-2025 Miscellaneous Notes* Telephone Encounter - Faina Levin MA - 09/24/2024 8:44 AM EDT OneTouch test strips were sent to [facility] [place] [facility], patient requesting [facility]. Sent patient mychart message to contact [facility] [place] to fill at that location. documented in this encounterSheltering Arms Hospital04-18-2025 Instructions* Patient Instructions* Thor Vinson MA - 09/24/2024 8:41 AM EDT SEQUENTIAL SCREENINGS The [facility] offers sequential screenings for women who [...] testing. It will require an appointment withour supervisor sound technician. This is not an ultrasound performed [...] the above symptoms, contact our office at [phone] and ask to speak with anurse. After hours, you can call doctors registry at [phone] OR call [facility] at [phone] ask to have the doctor home energy consultant supervisor paged. If you consider this an emergency, dial or go to your nearest emergency department. NEED HELP? Are you dealing with a violent or abusive relationship? Are you a victim of rape or sexual assult? Call [facility] ([place]) 24 hour Crisis Hotline: 807.758.6356 or 318-487-1077. MANUAL Your Guide to a Healthy manual is now on-line. Visit [email or web address] to download your free copy documented in this encounterSheltering [facility] Hospital04-18-2025 NoteAkron [facility]04-18-2025 History of Present illness Narrative* Mary Blackwell [...] vaginal leaking, bleeding, contractions. documented in this encounterSheltering Arms Hospital04-14-2025 Instructions* Patient Instructions* Kelsy Guillermo DO - 09/20/2024 1:47 PM EDT 1) check your sugars fasting (60-90 mg/dL) and 2 hours post meal (less than 120 mg/dL) 2) forward me your blood glucose data weekly ([email or web address]) as you are doing- 3) continue current [...] f/u (prefers in person). documented in this encounterSheltering Arms Hospital04-14-2025 History of Present illness Narrative* Kelsy [...] overall. PAST MEDICAL HISTORY Diagnosis Date Asthma ([facility]) Bipolar H/O macrosomia in in prior , currently ([facility]) 05/07/2024 Herpes simplex type 2 (HSV-2) infection affecting , antepartum, unspecified trimester ([facility]) 04/19/2024 Hyperlipidemia LGA (large for gestational age) ([facility]) 12/23/2016 12/23/16 - >95% Polyhydramnios ([facility]) 01/01/2017 Pre-existing type 2 diabetes mellitus in in first trimester ([facility]) 06/15/2024 First trimester Hgb A1c 10.5%, now [...] 90 units at bedtime 45mL 11 lancets (TodayticketsTOUCH DELICA PLUS LANCET) 30 gauge Use with [...] 10-IRON FUM-FOLIC ORAL Take by mouth. Insulin [place], Disposable, (BD ULTRAFINE III MINI PEN) 31 [...] which included preparing to see the patient, [id number] patient care, completing clinical documentation, obtaining and/or reviewing separately obtained history, performing a medically appropriate examination, counseling and educating the pat ient/family/caregiver, and ordering medications, tests, or procedures. Kelsy Guillermo DO documented in this encounterSheltering Arms Hospital04-14-2025 NoteAkron [facility]04-05-2025 Telephone encounter Note* Telephone Encounter - Kelsy [...] review again next week- thanks! Dr Guillermo [facility]04-05-2025 Miscellaneous Notes* Telephone Encounter - Kelsy [...] week- thanks! Dr Guillermo documented in this encounterSheltering Arms Hospital04-01-2025 Telephone encounter Note * Telephone Encounter [...] Will review again next week- thanks KB [facility]04-01-2025 Miscellaneous Notes* Telephone Encounter - Kelsy Guillermo DO - 09/07/2024 2:11 PM EDT Reviewed BG data- responded as follows: Hi Hoda- I reviewed your BG data- your [...] next week- thanks NILES documented in this encounterSheltering Arms Hospital04-01-2025 Telephone encounter Note * Telephone Encounter - Amelia Rose RN - 09/07/2024 12:46 PM EDT Spoke to patient and advised as below. Patient verbalized understanding. [facility]04-01-2025 Miscellaneous Notes* Telephone Encounter - Amelia [...] calling: self Call patient at: at home [phone] (home) [phone] (cell) Was an appointment scheduled: No Closing statement: Results or non-symptom based questions: Thank you for calling [facility], your call will be returned within the next business day. Kim East documented in this encounterSheltering Arms Hospital04-01-2025 Telephone encounter Note * Telephone Encounter - Kelsy Guillermo DO - 09/07/2024 12:39 PM EDT Please advise her that she does not need to do glucose tolerance testing- she is already checking BG/taking insulin- so this test will not change her management KB [facility]04-01-2025 Telephone encounter Note* Telephone Encounter - [...] calling: self Call patient at: at home [phone] (home) [phone] (cell) Was an appointment scheduled: No Closing statement: Results or non-symptom based questions: Thank you for calling [facility], your call will be returned within the next business day. Kim East [facility]04-01-2025 Progress note* Quick Notes - Ronaldo Rubio MD - 09/07/2024 11:15 AM EDT Patient at 25w 3 days, Type II Diabetic followed by endocrine. Reports FBSs ~ 90-95, and 2hrs Endocrine appointment 09/14. Denies ctrx, bleeding, lof labs today echo 5/6 rto 2 weeks Ronaldo Rubio MD [facility] Work Phone: 1(306) 519-412904-01-2025 Miscellaneous Notes* Quick Notes - Ronaldo Rubio MD - 09/07/2024 11:15 AM EDT Patient at 25w 3 days, Type II Diabetic followed by endocrine. Reports FBSs ~ 90-95, and 2hrs </= 120 (no book with her) Endocrine appointment 09/14. Denies ctrx, bleeding, lof labs today echo 10/12 rto 2 weeks Ronaldo Rubio MD documented in this encounterSheltering Arms Hospital04-01-2025 Instructions* Patient Instructions* Sundeep Salvador MA - 09/07/2024 10:40 AM EDT SEQUENTIAL SCREENINGS The [facility] offers sequential screenings for women who [...] testing. It will require an appointment withour supervisor sound technician. This is not an ultrasound performed [...] the above symptoms, contact our office at [phone] and ask to speak with anurse. After hours, you can call doctors registry at [phone] OR call [facility] at [phone] ask to have the doctor home energy consultant supervisor paged. If you consider this an emergency, dial or go to your nearest emergency department. NEED HELP? Are you dealing with a violent or abusive relationship? Are you a victim of rape or sexual assult? Call [facility] ([place]) 24 hour Crisis Hotline: 158.592.4343 or 983-859-5199. MANUAL Your Guide to a Healthy manual is now on-line. Visit [email or web address] to download your free copy documented in this encounterSheltering Arms Hospital03-31-2025 History of Present illness Narrative* Jamari [...] all orders for this visit: Exercise-induced asthma ([facility]) - albuterol 90 mcg/actuation inhaler; INHALE [...] if she stop smoking documented in this encounterDayton [facility] Work Phone: 1(980) 505-991403-31-2025 Telephone encounter Note* Telephone Encounter - Idania Murphy RN - 09/06/2024 9:48 AM EDT Request received from pharmacy for 90 day supply of aspirin Rx. Patient 25w2d, last seen in office on 08/10/24. Idania Murphy RN [facility]03-31-2025 Miscellaneous Notes* Telephone Encounter - Idania Murphy RN - 09/06/2024 9:48 AM EDT Request received from pharmacy for 90 day supply of aspirin Rx. Patient 25w2d, last seen in office on 08/10/24. Idania Murphy RN documented in this encounterSheltering Arms Hospital03-28-2025 Note Indication Follow-up evaluation to complete [...] Nicolaides HC 218.3 mm 23w 5d 24% Anan Cerebellum tr 24.3 mm 22w 2d 6% Hill Nuchal fold 3.5 mm AC 192.4 mm 24w 0d 19% Hadlock Femur 41.8 mm 23w 6d 27% Anna EFW 632 g 23w 4d 11% Hadlock EFW (lb) 1 lb EFW (oz) 6 oz EFW by: Paras (HC-AC-FL) Extended Psychologist Educational 6.2 mm CM 8.6 mm 97% Nicolaides [...] to know sex: yes Performed By: Idania Snyder, JANELL, RVT Read By: Mario Martin M.D.MATERNAL [id number] Telephone encounter Note* Telephone Encounter - Kelsy Guillermo DO - 08/30/2024 8:42 AM EDT Reviewed BG data- responded as follows: Hector Drummond- I reviewed your BG data- Lets increase [...] Will review again next week- thanks! KB [facility]03-24-2025 Miscellaneous Notes* Telephone Encounter - Kelsy Guillermo DO - 08/30/2024 8:42 AM EDT Reviewed BG data- responded as follows: Hector Drummond- I reviewed your BG data- Lets increase [...] next week- thanks! KB documented in this encounterShel[facility] Hospital03-19-2025 Telephone encounter Note * Telephone Encounter - Charlette Starkey RN - 08/25/2024 9:52 AM EDT Patient notified. She wanted to move u/s up sooner. Scheduled for 09/02. Patient also preferred to keep 09/07 OB appointment as scheduled with RR. Charlette Starkey RN [facility]03-19-2025 Miscellaneous Notes* Telephone Encounter - Charlette Starkey RN - 08/25/2024 9:52 AM EDT Patient notified. She wanted to move u/s up sooner. Scheduled for 09/02. Patient also preferred to keep 09/07 OB appointment as scheduled with RR. Charlette [...] scheduled. Charlette Starkey RN documented in this encounterSheltering Arms Hospital03-19-2025 Telephone encounter Note * Telephone Encounter - Piper Julian MD - 08/25/2024 9:08 AM EDT Official readings have been normal as have growth. Keep next growth US, can be 3 weeks instead of 4but we don't need to do anything different at this time, conbt. q 4 week growth scans. RLR [facility] Work Phone: 1(832) 425-155203-19-2025 Telephone encounter Note* Telephone Encounter - Idania Murphy RN - 08/25/2024 9:04 AM EDT Patient called back this morning, can you address phone noted below? Idania Murphy RN [facility]03-18-2025 Telephone encounter Note* Telephone Encounter - Charlette Starkey RN - 08/24/2024 4:30 PM EDT 23w3d Patient had echo done today and pediatric cardiology provider noted the amniotic fluid volumeappeared subjectively low. Patient is questioning if she needs sooner appointment than her 09/07/24 f/u anatomy one that is scheduled. Charlette Starkey RN [facility]03-18-2025 NoteHNO ID: [id number] Author: PAMELA HASKINS MD Service: ? Author Type: Physician Type: Progress Notes Filed: 08/24/2024 14:20 Note Text: Dr. Pooja Julian NAME: Melissa Byrne CLINIC Number.: [id number] Date of : 1995 Date of Visit: [...] which included preparing to see the patient, [id number] patient care, completing clinical documentation, obtaining and/or reviewing separately obtained history, performing a medically appropriate examination, counseling and educating the patient/family/caregiver, ordering medications, tests, or procedures, communicating with other HCPs (not separately reported), independently interpreting results (not separately reported), and communicating results to the patient/family/caregiver. I also performed portions of the echocardiogram myself. Sincerely, Dr. Santiago [facility] History of Present illness Narrative* Pamela Haskins MD - 08/24/2024 12:[address] Pooja Julian NAME: Melissa Byrne CLINIC Number.: [id number] Date of : 1995 Date of Visit: [...] which included preparing to see the patient, [id number] patient care, completing clinical documentation, obtaining and/or reviewing separately obtained history, performing a medically appropriate examination, counseling and educating the pat ient/family/caregiver, ordering medications, tests, or procedures, communicating with other HCPs (not separately reported), independently interpreting results (not separately reported), and communicating results to the patient/family/caregiver. I also performed portions of the echocardiogram myself. Sincerely, Dr. Pamela Haskins documented in this encounterSheltering Arms Hospital03-14-2025 Telephone encounter Note * Telephone Encounter [...] Will review again next week- thanks! KB [facility]03-14-2025 Miscellaneous Notes* Telephone Encounter - Kelsy Guillermo DO - 08/20/2024 3:15 PM EDT Reviewed BG data- responded as follows: Hector Farleyi- I reviewed your BG data- overall these [...] next week- thanks! KB documented in this encounterSheltering [facility] Hospital03-12-2025 Telephone encounter Note * Telephone Encounter - Amelia Rose RN - 08/18/2024 10:50 AM EDT Spoke to [facility] pharmacy in [place]. They will transfer the prescription over. [facility]03-12-2025 Miscellaneous Notes* Telephone Encounter - Amelia Rose RN - 08/18/2024 10:50 AM EDT Spoke to [facility] pharmacy in [place]. They will transfer the prescription over. * Telephone Encounter - Krys Arellano - 08/18/2024 9:20 AM EDT Hoda is calling Kelsy Guillermo DO today to request that insulin lispro (HUMALOG KWIKPEN INSULIN) 100 unit/mL be transferred to another [facility], which is in [place]. PH [phone] Patient has been identified by name and birthdate. Duration of symptoms: N/A Person calling: self Call patient at: at home [phone] (home) [phone] (cell) Was an appointment scheduled: No Closing statement: Results or non-symptom based questions: Thank you for calling [facility], your call will be returned within the next business day. Krys East documented in this encounterSheltering Arms Hospital03-12-2025 Telephone encounter Note * Telephone Encounter - Krys Arellano - 08/18/2024 9:20 AM EDT Hoda is calling Kelsy Guillermo DO today to request that insulin lispro (HUMALOG KWIKPEN INSULIN) 100 unit/mL be transferred to another [facility], which is in [place]. PH [phone] Patient has been identified by name and birthdate. Duration of symptoms: N/A Person calling: self Call patient at: at home [phone] (home) [phone] (cell) Was an appointment scheduled: No Closing statement: Results or non-symptom based questions: Thank you for calling [facility], your call will be returned within the next business day. Krys East [facility]03-08-2025 Telephone encounter Note* Telephone Encounter - Kelsy Guillermo DO - 08/14/2024 3:02 PM EST Reviewed BG data- responded as follows: Hi Hoda- I reviewed your BG data- the majority [...] review again next week- thanks! Dr Guillermo [facility]03-08-2025 Miscellaneous Notes* Telephone Encounter - Kelsy Guillermo DO - 08/14/2024 3:02 PM EST Reviewed BG data- responded as follows: Hector Hoda- I reviewed your BG data- the majority [...] week- thanks! Dr Guillermo documented in this encounterSheltering [facility] Hospital03-04-2025 Telephone encounter Note * Telephone Encounter - Faina Levin MA - 08/10/2024 4:55 PM EST Spoke to patient. Please see mychart encounter. [facility]03-04-2025 Miscellaneous Notes* Telephone Encounter - Faina [...] phone by her side. documented in this encounterSheltering Arms Hospital03-04-2025 Telephone encounter Note * Telephone Encounter - Faina Levin MA - 08/10/2024 4:54 PM EST Spoke to patient and updated her. [facility]03-04-2025 Miscellaneous Notes* Telephone Encounter - Faina [...] 4:02 PM EST Spoke to tech at [facility] and she stated that she spoke [...] [facility]MY [facility]ST[facility] DIABETES 09/20/2024 1:40 PM [facility] EST KIMMY PATIENT 11/04/2024 11:00 AM ENDO DIAB ED [facility] . Requested Prescriptions Pending Prescriptions Disp Refills [...] - 08/10/2024 1:49 PM EST Spoke to [facility] and they stated that onetouch prescription was transferred to another [facility] at other [facility] and she stated that they did [...] KIMMY GESTATIONAL DIABETES 09/20/2024 1:40 PM [facility] EST KIMMY PATIENT 11/04/2024 11:00 AM ENDO DIAB ED [facility] . Requested Prescriptions Pending Prescriptions Disp Refills [...] KIMMY GESTATIONAL DIABETES 09/20/2024 1:40 PM [facility] EST KIMMY PATIENT 11/04/2024 11:00 AM [facility]O DIAB ED [facility] . Requested Prescriptions Pending Prescriptions Disp [...] needs scheduled appointment No documented in this encounterSheltering Arms Hospital03-04-2025 Note* Addendum Note - Kelsy Guillermo DO - 08/10/2024 4:35 PM ESTAddended by: KELSY GUILLERMO on: 08/10/2024 04:35 PM Modules accepted: Orders [facility]03-04-2025 Note* Addendum Note - Faina Levin MA - 08/10/2024 4:19 PM ESTAddended by: FAINA LEVIN on: 08/10/2024 04:19 PM Modules accepted: Orders [facility]03-04-2025 Telephone encounter Note* Telephone Encounter - Faina Levin MA - 08/10/2024 4:02 PM EST Spoke to tech at [facility] and she stated that she spoke [...] [facility]MY GESTATIONAL DIABETES 09/20/2024 1:40 PM [facility] EST KIMMY PATIENT 11/04/2024 11:00 AM ENDO DIAB ED [facility] . Requested Prescriptions Pending Prescriptions Disp [...] pool. PSS NOTE: Patient needs scheduled appointment [facility]03-04-2025 Telephone encounter Note* Telephone Encounter - Amada Hills RN - 08/10/2024 3:10 PM EST Faina, the pt thinks she missed your call and wants to speak with you personally, will yo please call her back at the number listed in contacts, she will keep the phone by her side. [facility]03-04-2025 Telephone encounter Note* Telephone Encounter - Faina Levin MA - 08/10/2024 1:49 PM EST [facility]et[facility] prescription was transferred to another [facility] spoketo Rich at other [facility] and she stated that they did [...] until 2pm and will call back again. [facility]03-04-2025 Telephone encounter Note* Telephone Encounter - Demetra Morris - 08/10/2024 10:46 AM EST Patient called and states that a prior authorization needs to be done for her blood glucose testingsupplies. Please advise if PA can be started. [facility]03-04-2025 Progress note* Quick Notes - William [...] up in 4 weeks. William Gramajo MD [facility]03-04-2025 Miscellaneous Notes* Quick Notes - William [...] weeks. 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 Womack, a psychiatrist at [facility] in [place]. Taking Buspar and Prozac. Also sees a therapist Dr. Olmstead at [facility]. She states that she is able and willing to go to the ER or call crisis if she experiences any suicidal thoughts Medical Decision Making: Problems: Moderate: 2+ stable chronic illnesses Risk: Moderate: Moderate risk from testing/treatment Medical Decision Making Level: 4 - Moderate Pooja Latham MD documented in this encounterSheltering Arms Hospital03-04-2025 Instructions* Patient Instructions* Sundeep Salvador MA - 08/10/2024 8:22 AM EST SEQUENTIAL SCREENINGS The [facility] offers sequential screenings for women who [...] testing. It will require an appointment withour supervisor sound technician. This is not an ultrasound performed [...] the above symptoms, contact our office at [phone] and ask to speak with anurse. After hours, you can call doctors registry at [phone] OR call [facility] at [phone] ask to have the doctor home energy consultant supervisor paged. If you consider this an emergency, dial 91- or go to your nearest emergency department. NEED HELP? Are you dealing with a violent or abusive relationship? Are you a victim of rape or sexual assult? Call [facility] ([facility] 24 hour Crisis Hotline: 243.907.1453 or 032-279-0756. MANUAL Your Guide to a Healthy manual is now on-line. Visit [email or web address] to download your free copy documented in this encounterSheltering Arms Hospital03-02-2025 Telephone encounter Note * Telephone Encounter [...] review again next week- thanks! Dr Guillermo [facility]03-02-2025 Miscellaneous Notes* Telephone Encounter - Kelsy [...] week- thanks! Dr Guillermo documented in this encounterSheltering Arms Hospital02-25-2025 Telephone encounter Note * Telephone Encounter [...] EST [facility] 09/20/2024 1:40 PM [facility] EST KIMMY PATIENT 11/04/2024 11:00 AM ENDO DIAB ED [facility] . Requested Prescriptions Pending Prescriptions Disp [...] check blood glucose 4 times daily. lancets (TodayticketsTOUCH DELICA PLUS LANCET) 30 gauge 100 Each 11 Sig: Use with blood glucose test four times a day. Insulin Dep? Yes If patient is due for an appointment please route to provider for refill consideration and also to the endo scheduling pool. PSS NOTE: Patient needs scheduled appointment No [facility]02-25-2025 Telephone encounter Note* Telephone Encounter - Faina Levin MA - 08/03/2024 2:27 PM EST Requester: Patient Patients last Endocrinology visit occurred 07/26/24. Follow-up evaluation has been established Upcoming Endocrinology Appointments - Next 365 Days Visit Type Date Time Department EST [facility] 09/20/2024 1:40 PM [facility] EST KIMMY PATIENT 11/04/2024 11:00 AM [facility] ALT . Requested Prescriptions Pending [...] PSS NOTE: Patient needs scheduled appointment No [facility]02-23-2025 Telephone encounter Note* Telephone Encounter - [...] review again next week- thanks! Dr Guillermo [facility]02-23-2025 Miscellaneous Notes* Telephone Encounter - Kelsy [...] week- thanks! Dr Guillermo documented in this encounterSheltering Arms Hospital02-17-2025 Instructions* Patient Instructions* Kelsy Guillermo DO - 07/26/2024 2:06 PM EST 1) check your sugars fasting (60-90 mg/dL) and 2 hours post meal (less than 120 mg/dL) 2) forward me your blood glucose data weekly ([email or web address])- 3) increase NPH to 80 units at [...] 7 weeks for f/u. documented in this encounterSheltering Arms Hospital02-17-2025 History of Present illness Narrative* Kelsy [...] DM during thatpregnancy- had macrosomia, delivered in [place]. She was initially diagnosed with type 2 [...] 10-IRON FUM-FOLIC ORAL Take by mouth. Insulin [place], Disposable, (BD ULTRAFINE III MINI PEN) 31 [...] which included preparing to see the patient, iuiq-yq-jgip patient care, completing clinical documentation, obtaining and/or reviewing separately obtained history, performing a medically appropriate examination, counseling and educating the pat ient/family/caregiver, and ordering medications, tests, or procedures. Kelsy Guillermo DO documented in this encounterSheltering Arms Hospital02-17-2025 NoteAkron [facility]02-14-2025 NoteAkron [facility]02-14-2025 History of Present illness Narrative* William Gramajo MD - 07/23/2024 11:27 AM EST Melissa Byrne is a 29 year old female who presents for problem visit. HPI: Patient presents with concerns over possible herpes outbreak as had a little vulvar irritation. She denies complaints. 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 Insulin [place], Disposable, (BD ULTRAFINE III MINI PEN) 31 [...] discussed with the Patient or Patient's Authorized Therapy Aide. As applicable, any other physician, advance practice provider, medical student, or other health professional student that will be observing or involved in the sensitive examination for educational or training purposes was discussed with the Patient or Authorized Therapy Aide. The Patient or Authorized Therapy Aide has agreed to proceed with the sensitive examination. (Sensitive examination includes inspection and/or palpation of the breasts, pelvis, prostate and anorectal regions). EXAM: LMP 03/13/2024 GENERAL: pleasant, female in no apparent distress PELVIC: external genitalia normal, normal Bartholin's glands, urethra, [place]'s glands, no vulvar lesions ASSESSMENT AND PLAN: Assessment & Plan Vulvar irritation Patient reassured or normal vulvar exam and no evidence of HSV outbreak. Follow up for care. Medical Decision Making: Problems: Low: Acute, uncomplicated illness or injury Risk: Low: Low risk from testing/treatment Medical Decision Making Level: 3 - Low William Gramajo MD documented in this encounterSheltering Arms Hospital02-11-2025 Telephone encounter Note * Telephone Encounter [...] Will review again next week- thanks! KB [facility]02-11-2025 Miscellaneous Notes* Telephone Encounter - Kelsy [...] next week- thanks! KB documented in this encounterSheltering Arms Hospital02-10-2025 Telephone encounter Note * Telephone Encounter [...] Dept Phone 07/26/2024 2:00 PM KELSY GUILLERMO [facility] Lydia Dre [phone] 08/10/2024 8:00 AM WHI TECH 1 ENDOCRINOLOGY TEACHER MFM WSTR [facility] [place] [phone] 08/10/2024 8:00 AM ENDOCRINOLOGY TEACHER MFM WSTR [facility] [place] [phone] 08/10/2024 9:00 AM POOJA LATHAM [place] [phone] 08/10/2024 9:10 AM WILLIAM GRAMAJO [place] [phone] 08/24/2024 1:00 PM PAMELA HASKINS [facility] [phone] 08/24/2024 1:00 PM ECHO LAB [facility] [phone] RX INSTRUCTIONS: Respond to pharmacy only and close encounter Carrie Mata MA [facility] Work Phone: 1(227) 321-564102-10-2025 Miscellaneous Notes* Telephone Encounter - Carrie Mata [...] Dept Phone 07/26/2024 2:00 PM KELSY GUILLERMO [facility] Lydia Eric[place] [phone] 08/10/2024 8:00 AM WHI TECH 1 ENDOCRINOLOGY TEACHER MFM WSTR [facility] [place] [phone] 08/10/2024 8:00 AM ENDOCRINOLOGY TEACHER MFM WSTR [facility] [place] [phone] 08/10/2024 9:00 AM POOJA LATHAM [place] [phone] 08/10/2024 9:10 AM WILLIAM GRAMAJO [place] [phone] 08/24/2024 1:00 PM PAMELA HASKINS [facility] [phone] 08/24/2024 1:00 PM ECHO LAB [facility] [phone] RX INSTRUCTIONS: Respond to pharmacy only and close encounter Carrie Mata MA documented in this encounterSheltering Arms Hospital02-05-2025 Telephone encounter Note * Telephone Encounter [...] Will review again next week- thanks! KB [facility]02-05-2025 Miscellaneous Notes* Telephone Encounter - Kelsy [...] next week- thanks! KB documented in this encounterSheltering Arms Hospital02-04-2025 Progress note* Quick Notes - William Gramajo MD - 07/13/2024 11:33 AM EST LO - VB No. LOF No. CTXS No. Movement: absent. Other c/o: No. Medication list reviewed. 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 It will require an appointment withour supervisor sound technician. This is not an ultrasound performed [...] the above symptoms, contact our office at [phone] and ask to speak with anurse. After hours, you can call doctors registry at [phone] OR call [facility] at [phone] ask to have the doctor home energy consultant supervisor paged. If you consider this an emergency, dial 9-5 or go to your nearest emergency department. NEED HELP? Are you dealing with a violent or abusive relationship? Are you a victim of rape or sexual assult? Call [facility] ([facility] 24 hour Crisis Hotline: 650.193.5843 or 705-190-0669. MANUAL Your Guide to a Healthy manual is now on-line. Visit [email or web address] to download your free copy documented in this encounterSheltering Arms Hospital01-26-2025 Telephone encounter Note * Telephone Encounter [...] Will review again next week- thanks! KB [facility]01-26-2025 Miscellaneous Notes* Telephone Encounter - Kelsy [...] next week- thanks! KB documented in this encounterSheltering Arms Hospital01-24-2025 Telephone encounter Note * Telephone Encounter - William Gramajo MD - 07/02/2024 10:08 AM EST Noted William Gramajo MD [facility] Work Phone: 1(383) 350-251001-24-2025 Miscellaneous Notes* Telephone Encounter - William Gramajo [...] furtheradvice. Charlette Starkey RN documented in this encounterSheltering Arms Hospital01-24-2025 Telephone encounter Note * Telephone Encounter [...] Only call with furtheradvice. Charlette Starkey RN [facility]01-20-2025 Telephone encounter Note* Telephone Encounter - Keshav Loving MD - 06/28/2024 8:49 AM EST Agree with recommendations thanks [facility] Work Phone: 1(803) 184-751201-20-2025 Miscellaneous Notes* Telephone Encounter - Keshav Loving [...] advice. Charlette Starkey RN documented in this encounterSheltering Arms Hospital01-20-2025 Telephone encounter Note * Telephone Encounter [...] call with further advice. Charlette Starkey RN [facility]01-17-2025 Miscellaneous Notes* Telephone Encounter - Kelsy [...] week- thanks! Dr Guillermo documented in this encounterSheltering Arms Hospital01-17-2025 Telephone encounter Note * Telephone Encounter [...] review again next week- thanks! Dr Guillermo [facility]01-14-2025 Telephone encounter Note* Telephone Encounter - Ezra Crbatree RN - 06/22/2024 8:18 AM EST Called Melissa Byrne and identified by name and date of . Melissa Ean Byrne was informedof negative Non-Invasive Testing (NIPT) [...] with Primary OB Provider. Ezra Crabtree RN [facility]01-14-2025 Miscellaneous Notes* Telephone Encounter - Ezra [...] reported as: female. Reviewed with patient Melissa Mckoy Chavez that NIPT is considered screening and not diagnostic, so this result greatly reduces, but does not eliminate the chance that the fetus could have trisomy 21, trisomy 18, trisomy 13 or sex chromosome aneuploidy. Melissa Ean Chavez indicated understanding this information. Patient advised to follow up with AFP neural tube defect screening (blood draw) at 16-18 weeks gestation and 18-20 week detailed anatomy ultrasound. Also instructed to follow-up with Primary OB Provider. Ezra Crabtree RN documented in this encounterSheltering Arms Hospital01-11-2025 Telephone encounter Note * Telephone Encounter [...] review again next week- thanks! Dr Guillermo [facility]01-11-2025 Miscellaneous Notes* Telephone Encounter - Kelsy [...] week- thanks! Dr Guillermo documented in this encounterSheltering Arms Hospital01-08-2025 History of Present illness Narrative* Carrie Larsen, BRICE - 06/16/2024 10:00 AM EST [facility] Medical Nutrition Therapy Visit Type: Virtual: I have discussed the nature of this visit with the patient which will occur via [facility] (Phone, Virtual Visit) and she agrees to proceed with this interaction. I have communicated my name and active licensure. The patient's identity and physical location wereverified at the time of this visit. Either the patient or their legal surgical device sales representative has been informed of the [...] during that - had macrosomia, delivered in [place]. -She was initially diagnosed with type 2 diabetes at age 14 -reports she does not have her top teeth and can't wear her dentures because they are too big > she is planning on calling the dentist and rescheduling appt -can struggle with hard foods such a raw vegetables and takes small bites -current GA: 13w4d -she is using the [employer]yle zoltan 3 plus CGM and checking BG [...] 10-IRON FUM-FOLIC ORAL Take by mouth. Insulin [place], Disposable, (BD ULTRAFINE III MINI PEN) 31 [...] 191 lbs Pre- BMI: 34.9 TW lbs [place] of Medicine Weight Gain Recommendations for : [...] Larsen M.S., MEHNAZ, LD documented in this encounterShel[facility]01-08-2025 NoteAkron [facility]01-07-2025 NoteAkron [facility]01-07-2025 History of Present illness Narrative* Pooja Latham MD - 06/15/2024 1:37 PM EST Images from the original note were not included. Remote Control Assembler [place] OUTPATIENT VISIT DATE June 15, 2024 OUTPATIENT VISIT TYPE CONSULT REFERRING PROVIDER: Zayda Parker APRN.WAREHOUSE UNLOADER Recommendations from today's consultation will be conveyed through the electronic medical record. History of Present Illness: 29 year old at 13w3d with Estimated Date of Delivery: 12/18/24 presenting for consultation with Maternal- Medicine at [facility] in the setting of sub-optimally controlled [...] around age 12-14. She is followed by Broadcast Program Director Dr. Guillermo. She was last seen in [...] Date CHOLECYSTECTOMY D&C, DIAG AND/OR THERAPEUTIC 2018 Medications: Current Outpatient Medications on File Prior [...] 10-IRON FUM-FOLIC ORAL Take by mouth. Insulin [place], Disposable, (BD ULTRAFINE III MINI PEN) 31 [...] shows: - Single, live, intrauterine . - Celebration rump length measurement is consistent with the [...] Lymph 1.00 - 4.00 k/uL 2.83 Abs [place] <0.87 k/uL 0.37 Abs Eosin <0.46 k/uL [...] cardiovascular systems. 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 Pooja Latham MD June 15, 2024 3:33 PM documented in this encounterSheltering [facility] Hospital01-06-2025 Telephone encounter Note * Telephone Encounter - Kelsy Guillermo DO - 06/14/2024 4:56 PM EST Rx sent KB [facility]01-06-2025 Miscellaneous Notes* Telephone Encounter - Kelsy Guillermo DO - 06/14/2024 4:56 PM EST Rx sent KB documented in this encounterSheltering Arms Hospital01-03-2025 Telephone encounter Note * Telephone Encounter [...] Will review again next week- thanks! NILES [facility]01-03-2025 Miscellaneous Notes* Telephone Encounter - Kelsy [...] next week- thanks! KB documented in this encounterSheltering Arms Hospital12-30-2024 Instructions* Patient Instructions* Kelsy Guillerom DO - 06/07/2024 2:33 PM EST 1) check your sugars fasting (60-90 mg/dL) and 2 hours post meal (less than 120 mg/dL) 2) forward me your blood glucose data weekly ([email or web address])- we will get you CGM (sensor)- you [...] 8 weeks for f/u. documented in this encounterSheltering Arms Hospital12-30-2024 History of Present illness Narrative* Kelsy [...] DM during thatpregnancy- had macrosomia, delivered in [place]. She was initially diagnosed with type 2 [...] third trimester 12/12/2016 12/23/16 - admitted to [place] for glucoregulation, likely will need delivery at 37 weeks - KJ 12/12/2016 She is a Type 2 diabetic and started Insulin during the .Last HGB A1c 6.9 on 11/14/2016.She sees an psych nurse, Dr Asif. Her records have been faxed here during the visit and are sent to [address] Gramajo review. TKRN January 14, 2017 EFW is approx 95%. Monitor closely, cons with care elsewhere, antepartum 12/12/2016 12/12/2016Patient is transferring care from [facility]. She states she has moved from [place] to [place] and wishes to be seen here.There is some notations by her previous doctor ofnon-compliance issues with keeping appointments and diabetic diet/Insulin dosages. She states she was seen at the [facility] 11/18 for decreased movement and then [...] 10-IRON FUM-FOLIC ORAL Take by mouth. Insulin [place], Disposable, (BD ULTRAFINE III MINI PEN) 31 [...] forward me your blood glucose data weekly ([email or web address])- we will get you CGM (sensor)- you [...] which included preparing to see the patient, ivdl-uw-plak patient care, completing clinical documentation, obtaining and/or reviewing separately obtained history, performing a medically appropriate examination, counseling and educating the pat ient/family/caregiver, and ordering medications, tests, or procedures. Kelsy Guillermo DO documented in this encounterSheltering Arms Hospital12-30-2024 NoteAkron [facility]'S [facility]12-30-2024 NoteHNO ID: [id number] Author: FAINA LEVIN MA Service: ? Author Type: Publication Specialist Type: Procedures Filed: 06/07/2024 15:02 Note Text:[facility]12-30-2024 Procedure note* Faina Levin MA - 06/07/2024 2:14 PM ESTProcedure(s): EXTERNAL LENS AND FRAMES PRESCRIPTION CLERK, CGM SYS Images from the original note were not included. [facility]12-30-2024 Procedure note* Faina Levin MA - 06/07/2024 2:14 PM ESTProcedure(s): EXTERNAL LENS AND FRAMES PRESCRIPTION CLERK, CGM SYS Images from the original note were not included. documented in this encounterSheltering Arms Hospital12-28-2024 Telephone encounter Note * Telephone Encounter [...] are going next week- thanks! Dr Guillermo [facility]12-28-2024 Miscellaneous Notes* Telephone Encounter - Kelsy [...] week- thanks! Dr Guillermo documented in this encounterSheltering Arms Hospital12-24-2024 Telephone encounter Note * Telephone Encounter [...] are going next week- thanks! Dr Guillermo [facility]12-24-2024 Miscellaneous Notes* Telephone Encounter - Kelsy [...] week- thanks! Dr Guillermo documented in this encounterSheltering Arms Hospital12-18-2024 Telephone encounter Note * Telephone Encounter - Amelia Rose RN - 05/26/2024 2:28 PM EST A PA for Humalog submitted and was approved. Spoke to patient and advised. She can use the voucher as well. [facility]12-18-2024 Miscellaneous Notes* Telephone Encounter - Amelia [...] Please review and advise. documented in this encounterSheltering Arms Hospital12-18-2024 Telephone encounter Note * Telephone Encounter [...] get her Humalog. Please review and advise. [facility]12-18-2024 Progress note* Quick Notes - Krys [...] Unknown. No results found Krys Kulkarni MD [facility]12-18-2024 Miscellaneous Notes* Quick Notes - Krys [...] genetic counseling but results no included. Per [facility]. Normal genetic testing Daughter and patient have [...] found Krys Kulkarni MD documented in this encounterSheltering Arms Hospital12-18-2024 Instructions* Patient Instructions* Gino Wood MA - 05/26/2024 9:50 AM EST SEQUENTIAL SCREENINGS [facility] offers sequential screenings for women who [...] testing. It will require an appointment withour supervisor sound technician. This is not an ultrasound performed [...] the above symptoms, contact our office at [phone] and ask to speak with anurse. After hours, you can call doctors registry at [phone] OR call [facility] at [phone] ask to have the doctor home energy consultant supervisor paged. If you consider this an emergency, dial or go to your nearest emergency department. NEED HELP? Are you dealing with a violent or abusive relationship? Are you a victim of rape or sexual assult? Call [facility] ([place]) 24 hour Crisis Hotline: 903.260.9887 or 913-874-7584. MANUAL Your Guide to a Healthy manual is now on-line. Visit [facility].org/HealthyPregnancyGuide to download your free copy documented in this encounterSheltering Arms Hospital12-17-2024 Telephone encounter Note * Telephone Encounter [...] for tomorrow with JRobyn. Charlette Starkey RN [facility]12-17-2024 Miscellaneous Notes* Telephone Encounter - Charlette Starkey RN - 05/25/2024 10:15 AM EST Spoke to patient. She has not vomited since last week. Feeling slightly better and hasn't had that many low blood sugars since calling last week. Appetite still minimal. She is trying to eat small frequent snacks. Aware PA will be submitted for diclegis. Scheduled appt for tomorrow with REGLA. Charlette Starkey RN * Telephone Encounter - [...] advise. Charlette Starkey RN documented in this encounterSheltering Arms Hospital12-13-2024 Hospital Discharge instructions* Discharge Instructions* Reza Dyer DO - 05/21/2024 8:33 PM EST Call OB on Friday for follow-up appointment. * Attachments The following attachments cannot be sent through Care Everywhere. * The Second Month (Solomon Islander) documented in this [facility] Work Phone: 1(367) 717-906412-13-2024 Emergency department Note* Reza Dyer DO - [...] performed using a different test methodology at [facility] than other [facility]. Direct result comparison should only [...] Color, Urine Appearance, Urine Turbid (*) Specific [place], Urine 1.029 pH, Urine 6.0 Protein, Urine [...] Abnormality Status --------- ------ Urinalysis with Reflex C...[[id number]] Abnormal Final result Extra Urine Bolton Tube[[id number]] In process Please view results for these [...] Care: Appropriate for discharge and follow-up with WELDING MACHINE OPERATOR ARC. Procedure Procedures Reza Dyer DO 05/21/242036 documented in this [facility] Work Phone: 1(128) 466-734112-13-2024 Physician Emergency department Note* Reza Dyer DO [...] HCG measurement is performed using the Anson Metcalf Access Immunoassay which detects intact HCG and free beta HCG subunit. This test is not indicated for use as a tumor marker. HCG testing is performed using a different test methodology at [facility] than other [facility]. Direct result comparison should only [...] Color, Urine Appearance, Urine Turbid (*) Specific [place], Urine 1.029 pH, Urine 6.0 Protein, Urine [...] Abnormality Status --------- ------ Urinalysis with Reflex C...[[id number]] Abnormal Final result Extra Urine Bolton Tube[[id number]] In process Please view results for these [...] Care: Appropriate for discharge and follow-up with WELDING MACHINE OPERATOR ARC. Procedure Procedures Reza Dyer DO 05/21/242036 [facility] Work Phone: 1(650) 302-312412-12-2024 Telephone encounter Note* Telephone Encounter - Krys Murcia RN - 05/20/2024 10:00 AM EST Left message for patient to call office. Review below recommendations. RX for Diclegis was sent in today. Received message from pharmacy that this needs Prior Auth. Krys Murcia RN [facility]12-12-2024 Telephone encounter Note* Telephone Encounter - [...] get to there. . Piper Julian MD [facility]12-12-2024 Telephone encounter Note* Telephone Encounter - [...] office too. Please advise. Charlette Starkey RN [facility]12-09-2024 Telephone encounter Note* Telephone Encounter - Amelia Rose RN - 05/17/2024 11:48 AM EST Spoke to patient and advised about insulin taking. No further questions for now. [facility]12-09-2024 Miscellaneous Notes* Telephone Encounter - Amelia Rose RN - 05/17/2024 11:48 AM EST Spoke to patient and advised about insulin taking. No further questions for now. documented in this encounterSheltering Arms Hospital12-09-2024 Telephone encounter Note * Telephone Encounter - Kelsy Guillermo DO - 05/17/2024 11:09 AM EST Reviewed BG data- responded as follows: Hi Hoda - your sensor average is 193 mg/dL. I would recommend that you do the following: increase NPH to 32 units at bedtime increase Humalog to 15 units prior to each meal. Will review again on friday thanks! KB [facility]12-09-2024 Miscellaneous Notes* Telephone Encounter - Kelsy Guillermo DO - 05/17/2024 11:09 AM EST Reviewed BG data- responded as follows: Hi Hoda - your sensor average is 193 mg/dL. I would recommend that you do the following: increase NPH to 32 units at bedtime increase Humalog to 15 units prior to each meal. Will review again on friday thanks! KB documented in this encounterSheltering Arms Hospital12-03-2024 NoteAkron Children'S Hospital12-03-2024 Procedure note* Ana Sawyer MSW - 05/11/2024 4:09 PM EST Sw met with patient to review social service needs and social service assistance options. Patient notes that she signed up for WIC. Patient also notes signing up for [facility] and [facility] Housing voucher. Patient notes that she is attending parenting classes through [facility] [place]. Sw and patient also discussed reaching out to [address] for help with housing options. Patient reports that where she lives in [place] does not allow for children. Sw called [...] security statements. Patient and Sw also discussed [employer] as well at [facility]. Sw wrote down [place]'s address and [address] address and contact info for patient. Patient also noted that [facility] Patient has this direct number for any further assistance needs. Patient also noted that when she left this office that she would go down to 180 and see what housing supportive service resources they may be able to offer. [facility]12-03-2024 Procedure note* Ana Sawyer MSW - 05/11/2024 4:09 PM EST Sw met with patient to review social service needs and social service assistance options. Patient notes that she signed up for WIC. Patient also notes signing up for [facility] and [facility] Housing voucher. Patient notes that she is attending parenting classes through [facility]. Sw and patient also discussed reaching out to [facility] for help with housing options. Patient reports that where she lives in [place] does not allow for children. Sw called [...] security statements. Patient and Sw also discussed [employer] as well at [facility]. Sw wrote down [place] address and [facility] address and contact info for patient. Patient also noted that she sees counselor at [facility]. Patient has this direct number for any further assistance needs. Patient also noted that when she left this office that she would go down to 180 and see what housing supportive service resources they may be able to offer. documented in this encounterSheltering Arms Hospital12-01-2024 Telephone encounter Note * Telephone Encounter [...] data again friday AM thanks Dr Guillermo [facility]12-01-2024 Miscellaneous Notes* Telephone Encounter - Kelsy [...] AM thanks Dr Guillermo documented in this encounterSheltering Arms Hospital11-29-2024 Note* Addendum Note - Zayda Parker APRN.CNP - 05/07/2024 10:36 AM ESTAddended by: ZAYDA PARKER on: 05/07/2024 10:36 AM Modules accepted: Orders [facility]11-29-2024 Miscellaneous Notes* Addendum Note - Zayda Parker APRN.CNP - 05/07/2024 10:36 AM ESTAddended by: ZAYDA PARKER on: 05/07/2024 10:36 AM Modules accepted: Orders * Addendum Note - Sundeep Salvador MA - 05/07/2024 10:25 AM ESTAddended by: SUNDEEP SALVADOR on: 05/07/2024 10:25 AM Modules accepted: Orders documented in this encounterSheltering Arms Hospital11-29-2024 Note* Addendum Note - Sundeep Salvador MA - 05/07/2024 10:25 AM ESTAddended by: SUNDEEP SALVADOR on: 05/07/2024 10:25 AM Modules accepted: Orders [facility]11-29-2024 Instructions* Patient Instructions* Zayda Parker APRN.CNP - 05/07/2024 9:01 AM EST Images from the original note were not included. Please select the following link to access the [facility] Your Guide to a Healthy . [email or web address] MORNING SICKNESS IN by Estela Villa M.D. for [employer] As you may already know, morning sickness can often be more appropriately called evening sickness or tjiux-brdbmb-rf-the-day sickness. While there are the arabella few, [...] medication, Doxylamine, is currently marketed as an wkyb-hiz-owyhhql sleeping pill. Ask your practitioner if creating a vitamin B6/Doxylaminecombination with icqr-qrl-angxzpd medications would be safe for you. Prescription [...] as Phenergan, Compazine, Reglan Psychotherapy Services at [facility] Call Behavioral Health Access Line at [phone] to schedule Individual psychotherapy In-person or virtual Wait time for first evaluation may be 12 or more weeks. Wait list spots may be available. Due to the high volume of patients this option is recommended if you are looking for short term acute symptomcoping strategies. 2-619-5-FLWS7NHSY - [place] Maternal Mental Health Hotline If you are in suicidal crisis, please call or text 8-895-203-TALK ( ) or visit the National Suicide Prevention Lifeline website. mchb.hrsa.gov If you are in crisis, call 911 or go to your nearest Emergency Department Here are some links for wonderful Providers here in the community and surrounding areas. Do not hesitate to contact their offices, many are offering virtual visits during this time. Psychotherapy Services outside of [facility] Support International Online Provider Directory https://Parse.Coordi-Care's/ - can assist in finding providers in your area that might be more extensive then the list below. [facility] [place], [place] [address] [place] [address] [facility] [address] [place] [address] [facility] [address] [place] [address] [facility] [address] [place], [place] [address] Karen Kaur MD [address] [place] [address] [facility] [address] [facility], [address] [place] [address] [facility] [address] [place] [address] [facility] Services [place] / [place] [phone]/ [phone] [facility] [address] [facility] [address] [facility] [phone] A[facility] of Counseling and Mediation [place] / [place] [phone] Behavioral health services of [facility] [address] [place] [address]/ [place] [phone] Mike Choudhary, MEDICATION COORDINATOR, CLC [facility] Workshops, telehealth and at home visits. [phone] Humanistic counseling center 20 locations [place], [place], [place], [place], [place], [place], [place], [facility], [place], [place], [place], [place], [place], [place], [facility], [place], [place] ,[facility], [place], [place],[facility], [facility], [place], [facility], [facility], [place] www.Dynamic YieldcoMy Best Friends Daycare and Resort.Coordi-Care's [phone] Psychotherapy resources outside of [facility] are listed below [employer] [facility] Psychotherapy Web: https://www.SmartWatch Security & Soundcle.Coordi-Care's/ Support International Online Provider Directory https://[employer]/ Insight Counseling https://insightcounsFrontier Silicon.Coordi-Care's/ Partners for Behavioral Health and Wellness Web: https://Preo/ [place] for Effective Living Web: https://Goomzeeliving.Coordi-Care's/ LifeStance Web: https://Radisys/location/state/[place]/ [facility] Web: https://www.[facility].org/ The Centers Web: https://I'mOK.Adviceme Cosmetics/ Recovery Resources Mental health and substance abuse help Web: https://www.Guided Therapeutics & RESOURCES Support International Direct peer support and connection to professional resources Non-Emergency Helpline Phone: / Text: [phone] Web: https://www..net/ Online Provider Directory: https://[employer]/ Online Support Meetings: https://www..net/get-help/ccq-sgtjmp-qhcngfi-meetings/ ARON Baby and Sales Expert Home Theater Services Web: https://wwwOnfido/ MotherToBaby Expert information on medication use during and Text: [phone] Web: https://Alpine Data Labs/ NATIONAL REGISTRY FOR PSYCHIATRIC MEDICATIONS Currently studying the safety of antidepressants, ADHD medications and atypical antipsychotics taken during TO PARTICIPATE CALL TOLL-FREE: Web: https://womensmentalhealth.org/research/pregnancyregistry/ Support Groups: [facility]- Follow on facebook Baby Bistro support group led by [facility] department Resilient Mamas - Support Group [facility].org The POEM support group [phone] Www.poemonline.org Follow on facebook - POEM [facility] Online support meetings PSI https://www..net/get-help/ucs-dgpiqw-zsctwbl-meetings/ [facility] momoleksandr and me virtual support group 11:30-1pm Support for mothers and new babies and toddlers Reading childbirth education: Childbirth @cc.org or call [phone] CRISIS: CRISIS HOTLINE [phone], 911 or go to the nearest ER. [facility] [phone] / [facility] [phone] https://www.[facility].org Crisis text line text the word HOME to 266248 [facility] Counseling [address] [facility] [address] www.Nearbuyme Technologies Brigitte Kwan clinical counseling [address] [address] www.SageQuest [phone] Holding space psychotherapy Maricruz No RENAL MEDICINE SPECIALIST MARKET MANAGER-S [address] [facility] www.Social 2 Step [phone]/ [place] [phone] They all offer virtual. All work with trauma Support groups Online support meetings PSI https://www..net/get-help/wlv-cudaxq-juelmoh-meetings/ Here are the support groups they offer: Support of parents of 1 to 4 years old children POEM ( Outreach and Encouragement for Moms) offers free support for mothers experiencing depression, anxiety, and other mood and anxiety disorders. Masks are recommended but not required. No pre-registration required. Babies in arms welcome. meetings now take place on the and Friday of each month Location: [facility] [address] [place] [address] Room 122 (library room) 7-8:00 p.m. When you enter the [facility] parking lot off of [address] the entrance door closest to our meeting room is on the front of the building toward the right. For those who are more comfortable with a virtual platform, PO offers online support group options several days of the week. To register for an online group or to find out more about POEM, website at: https://mhaohio.org/get-help/jwpbnapb-pytnyq-epluiw/poem-services/ offer a confidential helpline: private Facebook group is called DEDRICK Cisneros Here are the groups they offer: Traumatic childbirth resources: Http://iLive.org/ https://www.Dish.fmjesusAny.DO.Coordi-Care's/ Name Location (s) Phone # (s) Services Website [facility] [address] [facility] [phone]; [address] [phone] In-Person GROUPS INDIVIDUAL THERAPY MATERNAL- MENTAL HEALTH MEDICATION MANAGEMENT PLAY AND ART THERAPY TELETHERAPY https://www.Empact Interactive Media/services/ Neha herrera [facility]? [address] [place], [place] [address] ? [address], [address] [place], [place] [id number] ? [place] [address] [place], [place] [id number]? Grief Support Groups Individual Grief Counseling Spiritual Care Memorial Events https://corey.[facility].org/grief-services [facility] [address] [place], [place] [address]; ; Email: [email or web address] Women's Mental Health; Couples Counseling; Trauma (EMDR); Stress Management; Mood and Anxiety Related Disorders- and much more https://www.App.io familycounsmarmet hospital for crippled [facility].Coordi-Care's/ LifeStance Numerous as they have contract providers: access website to find specific providers nearyou Counseling including CBT and EMDR as well as many more modalities; Medication Management; Telehealth and In-Person https://[employer].Coordi-Care's/ [facility] [address] [address]; [phone] Personal, Family and Group Therapy; Psychological Testing and Diagnosis; Medication Management; Life and Career Coaching; Psychoanalysis; Literacy Testing; Yoga and Meditation https://Preo/ Counts Include [address] Beds At [facility] [address] [facility] [address], [place] [address] [address] ; [address] [facility], [address] [place] [address]; Office # for both sites: Individual and Couples Counseling https://www.[facility].com/paymentinsurance.html OCD & Anxiety [facility] [address], [address], [place] [address]; Specialize in Cognitive-Behavioral Therapy (CBT) for the treatment of anxiety disorders across the lifespan. TELEHEALTH ONLY. https://ocdandanxietycenterolakehealth tripoint medical centerGracelock Industries.Coordi-Care's/faqs [facility] [address]th [place], [address] [place] [address] [facility] [place] [place], [address] [place] [address] [facility] [place], [address] [place] [address] [place], [address], [address] [place] [address] [place] [address]. [place], [address] [place] [address] [place], [address] Transportation Services To minimize patient barriers, [facility] provides transportation services to patients who qualify. If you are unable to get to your appointment at any of our facilities, please let us know. Need help now? Stop by one of our walk-in clinics to establish behavioral health care. Counseling Indvidual, Group, Couples and Family Counseling and EMDR. Medication Management Case Management benefits applications housing assistance Substance abuse treatment Medication assisted treatment https://www.[facility].org/mental-health/ [facility] OFFICE AT [facility] [address] [place] [address] [facility] OFFICE [address] [place] [address] [facility] OFFICE [address] [place], [place] [id number] [facility] OFFICE (at [facility]) [address] [place] [address] [facility] [place] EXCHANGE PROGRAM & HIV SCREENING [address] [place] [address] [place] EXCHANGE PROGRAM [address] [place] [address] Behavioral Health Urgent Care: [facility] Sites Counseling Indvidual and Group Medication Management Case Management benefits applications housing assistance Substance abuse treatment Medication assisted treatment Employment Services/ Job Training https://I'mOK.org/ [facility] [address] [place], [place] [address]: P: [phone] [address] [facility], [address], [place], [place] [address] P: [phone] Our services include: Addiction Mental Health Treatment Assessment Psychiatry Medical Care Employment Housing Drug and Alcohol Prevention HIV/AIDS Prevention https://www.[employer].org/ [facility] [place] [address] [facility] [address] [place] [address] [place], [place] [address] [place] [address] [place] [address] [place] [address] [facility] [address] [place] [address] [place] [address] [place] [address] TMS Therapy/ Counseling Psychocological Testing for ADHD Medication Management In-Person/ Telemedicine https://www.Metabar.Coordi-Care's/patients-depression Memory [facility] Psychological services [address], [place] [address] Neuropsychological Testing For ADHD https://www.memoryandpsych.com/ [facility] - Main Office [address] [place] [address] [address] Providing hxby-um-cfme and telehealth services. Adult Case Management Community Education and Prevention Employment Outpatient Treatment - Counseling & Psychotherapy Psychiatric Services http://www.ccwhc.org/ [facility] [address] [address] [facility]) [address] [place] [address] Virtual Appointments! Now offering safe and convenient virtual client appointments to anyone in [place]! Individual Therapy Couples/Relationship Therapy Trauma/EMDR Therapy Art Therapy Play Therapy Icing Mixer Support: Parenting Skills, Parent Child Interaction Therapy, Parent Interaction Therapy Meditation Dietitian/Boatswain Mate Services Group Therapy Yoga https://www.Mirubee/ Nohemy Stokes [phone] Private Practice: Telehealth Only Specializes in EMDR [...] and are at higher risk for sudden syndrome (SIDS). What happens if I keep [...] smoke. (This information is provided by the [facility] and is not intended to replace the medical advice of your doctor or health care provider. Please consult your health care provider for advice about a specific medical condition. For additional written health information, please call the Cancer Answer Line at [facility] [place] Friday - Friday 8-4:30 for assistance: [phone]. Or visitwww.[facility].org/health/) From [facility]'s Tobacco Cessation website: Our comprehensive smoking [...] us at your earliest convenience by calling [phone]. One of our friendly team members will be happy to help you with your financial plan. Contact [phone] for more information. [place] Tobacco Program Visit https://[place].quitlogix.org/en-US/ or call 1-701-AVOD-NOW documented in this encounterSheltering Arms Hospital11-26-2024 History of Present illness Narrative* Jamari [...] with other nicotine-induced disorder documented in this [facility] Work Phone: 1(937) 916-813311-25-2024 Nurse Note* Amelia Rose RN - 05/03/2024 [...] Time spent on patient education: 35 minutes. [facility]11-25-2024 Nurse Note* Amelia Rose RN - [...] patient education: 35 minutes. documented in this encounterSheltering Arms Hospital11-25-2024 Instructions* Patient Instructions* Kelsy Guillermo DO [...] units prior to each meal. 4) see child welfare specialist (Carrie Larsen) virtual visit 5) see me in 4 weeks (virtual visit) documented in this encounterSheltering Arms Hospital11-25-2024 NoteAkron [facility]11-[facility]-2024 History of Present illness Narrative* Kelsy Guillermo [...] during that - had macrosomia, delivered in [place]. She was initially diagnosed with type 2 [...] third trimester 12/12/2016 12/23/16 - admitted to [place] for glucoregulation, likely will need delivery at 37 weeks - KJ 12/12/2016 She is a Type 2 diabetic and started Insulin during the .Last HGB A1c 6.9 on 11/14/2016.She sees an psych nurse, Dr Asif. Her records have been faxed here during the visit and are sent to [address] Gramajo review. TKRN January 14, 2017 EFW is approx 95%. Monitor closely, cons with care elsewhere, antepartum 12/12/2016 12/12/2016Patient is transferring care from [facility]. She states she has moved from [place] to [place] and wishes to be seen here.There is some notations by her previous doctor ofnon-compliance issues with keeping appointments and diabetic diet/Insulin dosages. She states she was seen at the [facility] 11/18 for decreased movement and then [...] units prior to each meal. 4) see child welfare specialist (Carrie Larsen) virtual visit 5) see me [...] which included preparing to see the patient, yrzu-oc-kxnx patient care, completing clinical documentation, obtaining and/or reviewing separately obtained history, performing a medically appropriate examination, counseling and educating the pat ient/family/caregiver, and ordering medications, tests, or procedures. Kelsy Guillermo DO documented in this encounterSheltering Arms Hospital11-25-2024 Telephone encounter Note * Telephone Encounter [...] currently sees Dr. Womack, a psychiatrist at [facility]. States that she recently had an appointment with him and has an upcoming appointment inJanuary. Patient states he is aware that she is and has discussed psychiatric medications during . Also sees a therapist Dr. Ol[facility]stead at [facility]. Her next ap pointment there is May [...] FYI. Call back only if further advice [facility]11-25-2024 Miscellaneous Notes* Telephone Encounter - Brenda [...] currently sees Dr. Womack, a psychiatrist at [facility]. States that she recently had an appointment with him and has an upcoming appointment inJanuary. Patient states he is aware that she is and has discussed psychiatric medications during . Also sees a therapist Dr. Olmstead at the [facility]. Her next ap pointment there is May [...] only if further advice documented in this encounterSheltering Arms Hospital11-25-2024 Telephone encounter Note * Telephone Encounter - Ana Sawyer MSW - 05/03/2024 10:54 AM EST Leeanne spoke with patient and set up appt for patient to come in to the office and see Sw on 05/11 @12:30 to review social service programs in the community. Patient will come to see Sw at her office at [facility]. [facility]11-25-2024 Miscellaneous Notes* Telephone Encounter - Ana Sawyer MSW - 05/03/2024 10:54 AM EST Leeanne spoke with patient and set up appt for patient to come in to the office and see Sw on 05/11 @12:30 to review social service programs in the community. Patient will come to see Sw at her office at [facility]. documented in this encounterSheltering Arms Hospital11-25-2024 NoteAkron [facility]11-25-2024 History of Present illness Narrative* Zayda Parker APRN.REYES - 05/03/2024 10:13 AM EST Images from the original note were not included. Service Desk Associate offered: Patient declines. INITIAL OB ASSESSMENT HPI: Melissa is a 29 year old White here to establish Obstetrical Care. Patient's last menstrual period was 03/13/2024 (exact date). from OB Dating Form. 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 Never [place] Depression Scale Total 19 Feeling nervous, anxious [...] third trimester 12/12/2016 12/23/16 - admitted to [place] for glucoregulation, likely will need delivery at 37 weeks - KJ 12/12/2016 She is a Type 2 diabetic and started Insulin during the .Last HGB A1c 6.9 on 11/14/2016.She sees an psych nurse, Dr Asif. Her records have been faxed here during the visit and are sent to [address] Gramajo review. TKRN January 14, 2017 EFW is approx 95%. Monitor closely, cons with care elsewhere, antepartum 12/12/2016 12/12/2016Patient is transferring care from [facility]. She states she has moved from [place] to [place] and wishes to be seen here.There is some notations by her previous doctor ofnon-compliance issues with keeping appointments and diabetic diet/Insulin dosages. She states she was seen at the [facility] 11/18 for decreased movement and then [...] to each meal. 5 Each 11 Insulin [place], Disposable, (BD ULTRAFINE III MINI PEN) 31 [...] discussed with the Patient or Patient's Authorized Therapy Aide. As applicable, any other physician, advance practice provider, medical student, or other health professional student that will be observing or involved in the sensitive examination for educational or training purposes was discussed with the Patient or Authorized Therapy Aide. The Patient or Authorized Therapy Aide has agreed to proceed with the sensitive [...] medications? Yes Pt states she abuse ETOH [id number] In the past month have you drunk [...] plus performing a brief intervention. Zayda Parker APRN.WAREHOUSE UNLOADER ASSESSMENT: 29 year old at 7w6d wks gestational age PLAN: 1) Patient oriented to practice. Patient given new OB orientation folder. Discussed nutrition, folic acid supplementation, dietary guidelines, exercise, smoking, alcohol, caffeine, and drug use. Discussed gestational weight gain guidelines. Discussed routine OB labs including STD/HIV. Discussed how to access Your guide to a health and the Industrial Specialist. Discussed hemoglobin electrophoresis. Patient: Declines Reviewed midwifery and sterilization tech services that are available. 2) Screening: Hemoglobin [...] [] RSV vaccine 32 0/7 - 36 6/ (Feb - Jul) [] declined [] COVID [...] weeks): [] Consent [] Contraception - [] Book Coverer Third trimester (36-40 weeks): [] GBS [] [...] units of NPH at bedtime Planning for child welfare specialist visit with Carrie Larsen Echo [] EKG [...] Comment: Treated for HSV outbreak 04/18/2024 at [facility]. Plan for suppression therapy at 36 weeks. To notify with outbreaks. Zayda Parker APRN.CNP H/O Macrosomia in in Prior , Currently - 05/07/2024 Comment: May 07, 2024 10 lb 2oz at 37w4d Zayda Parker APRN.CNP History of Polyhydramnios - 05/07/2024 Comment: 2017 delivery. Zayda Parker APRN.CNP History of Bipolar Disorder - 05/07/2024 History of Depression - 12/12/2016 Comment: May 07, 2024 Has history of bipolar depression diagnosed in 2014. She currently sees Dr. Womack, a psychiatrist at [facility]. States that she recently had an appointment with him and has an upcoming appointment in June. Patient states he is aware that she is and has discussed psychiatric medications during . Taking Buspar and Prozac. Also sees a therapist Dr. Olmstead at the [facility]. Her next appointment there is May 10. [...] Plans to quit this weekend. Zayda Parker APRN.WAREHOUSE UNLOADER I spent 5 minutes counseling on risks, providing resources, and recommending smoking cessation. Zayda Parker APRN.WAREHOUSE UNLOADER History of Alcohol Abuse - 05/07/2024 Comment: May 07, 2024 Patient states that she did abuse alcohol from 4427-2010. Denies any alcohol use this . Zayda [...] 07, 2024 STD screening done. Zayda Parker APRN.WAREHOUSE UNLOADER Family History of Autism - 05/07/2024 Comment: May 07, 2024 States her daughter has autism Zayda Parker APRN.WAREHOUSE UNLOADER Nausea and Vomiting During - 05/07/2024 Comment: 05/07/24 Vitamin B6 and Unisom doses reviewed. To notify if prescription is needed. Zayda Parker APRN.WAREHOUSE UNLOADER Uti (Urinary Tract Infection) in , Antepartum - 04/19/2024 Comment: April 19, 2024 Diagnosed in ER 11/10/24. Plan to rescreen. Zayda Parker APRN.REYES Follow up in 4 weeks or sooner prn. Plan for NT scan between 12w0d and 13w6d gestation. MFM consult placed. Zayda Parker APRN.WAREHOUSE UNLOADER documented in this encounterSheltering Arms Hospital11-22-2024 Telephone encounter Note * Telephone Encounter - Tee Li RN - 04/30/2024 11:10 AM EST Reason for Call: Patient seeking care advice for elevated blood glucose, is , and she is not scheduled to see Endocrinology or OB until next week. Patient confirmed her [facility] PCP is currently managing her diabetes. Outcome: Patient confirmed she will send message and/or call PCP office today to [place] and make them aware that she stopped [...] day Protocols used: Diabetes - High Blood Vkjvl-AFPBR-AT [facility]11-22-2024 Miscellaneous Notes* Telephone Encounter - Tee Li RN - 04/30/2024 11:10 AM EST Reason for Call: Patient seeking care advice for elevated blood glucose, is , and she is not scheduled to see Endocrinology or OB until next week. Patient confirmed her [facility] PCP is currently managing her diabetes. Outcome: Patient confirmed she will send message and/or call PCP office today to [place] and make them aware that she stopped [...] day Protocols used: Diabetes - High Blood Lslqq-RVYRP-EC documented in this encounterSheltering Arms Hospital11-20-2024 History of Present illness Narrative* Joanie Hurtado, SARAHY-WAREHOUSE UNLOADER - 04/28/2024 8:40 AM EST Subjective Patient [...] scheduled to see her OB through the [facility] in May, has a ultrasound scheduled in [place] next week on May 03 and is scheduled to see her primary care provider Dr. Byrne on May 04. She will report effectiveness of medication to Dr. Byrne on her visit. She reports no signs or symptoms of complication at this time. No vaginalbleeding, abdominal or back pain. She did state that around the 3-week gestation phase she had an ultrasound at [facility] which did not detect but showed [...] days Less than 8 weeks gestation of ([facility]) documented in this encounterDayton Children's Hospital Work Phone: 1(762) 404-736011-15-2024 Telephone encounter Note* Telephone Encounter - Sis [...] patient to email Dr. Ca at . [facility]11-15-2024 Miscellaneous Notes* Telephone Encounter - Sis [...] Dr. Ca at . documented in this encounterSheltering Arms Hospital11-11-2024 Telephone encounter Note * Telephone Encounter - Zayda Parker APRN.CNP - 04/19/2024 8:43 AM EST Noted. Zayda Parker APRN.REYES [facility]11-11-2024 Miscellaneous Notes* Telephone Encounter - Zayda Parker APRN.CNP - 04/19/2024 8:43 AM EST Noted. Zayda Parker APRN.REYES * Telephone Encounter - Krys Murcia RN - 04/19/2024 8:37 AM EST LMP 10 Approximately 5w2d. Patient seen at ER yesterday. She was diagnosed with HSV outbreak and UTI. She was prescribed Keflex and Acyclovir. Wanted our office to be aware before her 05/07 NOB with EH. Krys Murcia RN documented in this encounterSheltering Arms Hospital11-11-2024 Telephone encounter Note * Telephone Encounter - Krys Murcia RN - 04/19/2024 8:37 AM EST LMP 10 Approximately 5w2d. Patient seen at ER yesterday. She was diagnosed with HSV outbreak and UTI. She was prescribed Keflex and Acyclovir. Wanted our office to be aware before her 05/07 NOB with EH. Krys Murcai RN [facility]11-10-2024 Emergency department Note* Angy Lynne APRN-REYES [...] and concern for . Reports LMP 03/13/24. [id number]. She has been experiencing thin white discharge [...] Urine Yellow Appearance, Urine Turbid (*) Specific [place], Urine 1.048 (*) pH, Urine 6.0 Protein, [...] performed using a different test methodology at [facility] than other [facility]. Direct result comparison should only be made within the same method. C. TRACHOMATIS + N. GONORRHOEAE, AMPLIFIED - Normal Neisseria gonorrhea,Amplified Not Detected Chlamydia trachomatis, Amplified Not Detected URINE CULTURE URINALYSIS WITH REFLEX CULTURE AND MICROSCOPIC Narrative: The following orders were created for panel order Urinalysis with Reflex Culture and Microscopic. Procedure Abnormality Status --------- ------ Urinalysis with Reflex C...[[id number]] Abnormal Final result Extra Urine Bolton Tube[[id number]] Please view results for these tests on [...] outbreak RORY Patel 04/18/242139 documented in this encounterDayton Children's Hospital Work Phone: 1(174) 508-774111-10-2024 Physician Emergency department Note* RORY Patel - [...] and concern for . Reports LMP 03/13/24. [id number]. She has been experiencing thin white discharge [...] Urine Yellow Appearance, Urine Turbid (*) Specific [place], Urine 1.048 (*) pH, Urine 6.0 Protein, [...] HCG measurement is performed using the Anson Metcalf Access Immunoassay which detects intact HCG and free beta HCG subunit. This test is not indicated for use as a tumor marker. HCG testing is performed using a different test methodology at [facility] than other [facility]. Direct result comparison should only be made within the same method. C. TRACHOMATIS + N. GONORRHOEAE, AMPLIFIED - Normal Neisseria gonorrhea,Amplified Not Detected Chlamydia trachomatis, Amplified Not Detected URINE CULTURE URINALYSIS WITH REFLEX CULTURE AND MICROSCOPIC Narrative: The following orders were created for panel order Urinalysis with Reflex Culture and Microscopic. Procedure Abnormality Status --------- ------ Urinalysis with Reflex C...[[id number]] Abnormal Final result Extra Urine Bolton Tube[[id number]] Please view results for these tests on [...] #2 herpes simplex outbreak RORY Patel 04/18/242139 [facility] Work Phone: 1(106) 664-674011-07-2024 Telephone encounter Note* Telephone Encounter - Julia Cardoan RN - 04/15/2024 3:52 PM EST Patient has appt - closing encounter. Julia Cardona RN [facility]11-07-2024 Miscellaneous Notes* Telephone Encounter - Julia [...] Pelvic pain? Was seen in ED in [facility] yesterday for sharp left sided [...] to: self Call patient at: at home [phone] (home) [phone] (cell) Payor: [employer] / Plan: [facility] MED[facility] / Product Type: Medicare / Paulo Hodges documented in this encounterSheltering Arms Hospital11-07-2024 Telephone encounter Note * Telephone Encounter - Idania Murphy RN - 04/15/2024 2:00 PM EST Left message to call office. PSS: Please attempt to call patient also to schedule New OB. Thank you. Idania Murphy RN [facility]11-07-2024 Telephone encounter Note* Telephone Encounter - Julia Cardona RN - 04/15/2024 11:03 AM EST Name and identified. LMP? 03/13/24 4w5d When did you have a + test? This week PNV? Not yet Pelvic pain? Was seen in ED in [facility] yesterday for sharp left sided [...] schedulers in this office. Julia Cardona RN [facility]11-07-2024 NoteDischarge Instructions Discharge Summary [place] [id number] [place] [phone] 04/14/2024 Patient: MELISSA KAUR Sex: Female : 1995 Age: 29y Thank you for visiting [facility]. You have been evaluated today by [...] by patient. Follow-up with: Channing Nixon MD, [facility], [facility], , [address] [place] [address]. Follow up in four days even if well. Call for an appointment. Reason for referral: evaluation and treatment. Summary of care provided to patient. Jon Calvert MD, [place] WELDING MACHINE OPERATOR [employer], Women's [facility], Phone: [phone], [address] [place] [address]. Follow up in four days even if well. Call for an appointment. Reason for referral: evaluation and treatment. Summary of care provided to patient. You have been given the following additional information: 1 of 5 Discharge Instructions Patient Signature Facility Therapy Aide Date/Time General Instructions with ExitWriter [facility] [address] [place] [phone] 04/14/2024 Patient: MELISSA KAUR Sex: Female : 1995 Age: 29y Thank you for visiting [facility]. You have been evaluated today by [...] by patient. Follow-up with: Channing Nixon MD, [facility], , [address] [place] [id number]. Follow up in four days even if well. Call for an appointment. Reason for referral: evaluation and treatment. Summary of care provided to patient. Jon Calvert MD, [place] WELDING MACHINE OPERATOR [employer], Women's Health, Phone: [phone], [address] [place] [address] 2 of 5 Discharge Instructions [id number]. Follow up in four days even if [...] Stay away from alc (more content not included)...[facility] 04-14-2024 Telephone encounter Note* Telephone Encounter - Julia Cardona RN - 04/14/2024 8:34 AM EST Call placed to patient to triage for new OB appt. Left message for patient to call back Julia Cardona RN [facility]11-06-2024 Telephone encounter Note* Telephone Encounter - [...] to: self Call patient at: at home [phone] (home) [phone] (cell) Payor: AARONJOHNNIE MEDICARE / Plan: ALLEN LLAMASJOHNNIE MEDICARE / Product Type: Medicare / Paulo Hodges [facility]08-16-2024 History of Present illness Narrative* Jamari [...] lipoidica F/u 3 months documented in this [facility] Work Phone: 1([phone]) 130-401207-18-2024 History of Present illness Narrative* Jamari Byrne [...] 4 times per day documented in this [facility] Work Phone: [phone]) 141-408604-08-2024 History of Present illness Narrative* Jamari Byrne [...] 10 days transmitter good for 90 days Campaign Fundraiser used instead of smart phone Trulicity 1.5 [...] minutes after Hyperglycemia due to diabetes mellitus ([facility]) - metFORMIN (Glucophage) 1,000 mg tablet; Take 1 tablet (1,000 mg) by mouth 2 times a day. - glipiZIDE (Glucotrol) 5 mg tablet; Take 1 tablet (5 mg) by mouth 2 times a day. Exercise-induced asthma - albuterol 90 mcg/actuation inhaler; INHALE 1 TO 2 PUFFS EVERY 6 HOURS NEEDED documented in this [facility] Work Phone: 1([phone]) 906-400603-12-2024 History of Present illness Narrative* Mary Blackwell PA - 08/19/2023 10:20 AM EDT This note was created using Endoseeriter. Subjective Melissa Kaur is a 28 year [...] third trimester 12/12/2016 12/23/16 - admitted to [place] for glucoregulation, likely will need delivery at 37 weeks - KJ 12/12/2016 She is a Type 2 diabetic and started Insulin during the .Last HGB A1c 6.9 on 11/14/2016.She sees an psych nurse, Dr Asif. Her records have been faxed here during the visit and are sent to [address] Gramajo review. TKRN January 14, 2017 EFW is approx 95%. Monitor closely, cons with care elsewhere, antepartum 12/12/2016 12/12/2016Patient is transferring care from [facility]. She states she has moved from [place] to [place] and wishes to be seen here.There is some notations by her previous doctor ofnon-compliance issues with keeping appointments and diabetic diet/Insulin dosages. She states she was seen at the [facility] 11/18 for decreased movement and then [...] ER evaluation. BUDDY Mendoza [facility] History of Present illness Narrative* Sigrid [...] a day. Hyperglycemia due to diabetes mellitus ([facility]) - Basic Metabolic Panel; Future - Hemoglobin A1C; Future documented in this [facility] Work Phone: [phone]) 884-962412-01-2023 History of Present illness Narrative* Jamari Byrne [...] this visit: Hyperglycemia due to diabetes mellitus ([facility]) - Dexcom G4 [place] transmitter (Dexcom G6 Transmitter) device; Change as directed - Hemoglobin A1C; Future - Basic Metabolic Panel; Future F/u 2 months [facility] [phone]) 935-367312-01-2023 Instructions* Patient Instructions* Jamari Byrne MD - 05/09/2023 11:20 AM EST For bark scaler Kandace Fried WAREHOUSE UNLOADER [facility] Work Phone: [phone] 518-938910-09-2023 History of Present illness Narrative* Jamari Byrne [...] HOURS NEEDED Hyperglycemia due to diabetes mellitus ([facility]) - dulaglutide (Trulicity) 1.5 mg/0.5 mL pen [...] units at bedtime subcutaneous - Dexcom G4 [place] contract associate (Dexcom G6 Campaign Fundraiser) [facility]; Use as instructed documented in this [facility] Work Phone: [phone]) 404-452807-07-2023 History of Present illness Narrative* Jamari Byrne [...] this visit: Hyperglycemia due to diabetes mellitus ([facility]) - Dexcom G4 [place] transmitter (Dexcom G6 Transmitter) device; Apply every 10 days - insulin glargine (Lantus U-100 Insulin) 100 unit/mL injection; Inject 10 Units under the skin once daily at bedtime. Take as directed per insulin instructions. - pen needle, diabetic 31 gauge x 5/16 needle; Inject nightly - Hemoglobin A1C; Future Other orders - Follow Up In Primary Care [facility] in [facility] Work Phone: 1(750) 504-318103-11-2023 Instructions* Patient Instructions* Lazara Jon, DO - 08/17/2022 7:51 PM EST test is negative. Treating presumptively for vaginal yeast infection with prescription for Diflucan. Test for sexually transmitted diseases is pending and you will be notified if there are any positive results. * Attachments The following attachments cannot be sent through Care Everywhere. * Vaginal Yeast Infection (Solomon Islander) documented in this [id number] History of Present illness Narrative* Lazara Jon DO - 08/17/2022 7:05 PM EST PATIENT NAME: Melissa Kaur [facility]: [id number] [facility] [id number] DATE OF VISIT: 08/17/2022 DATE OF : [...] it is wet prep. Patient uses the [employer] system and will look for her results there. We will call her additionally, if there are positive test that needed a change in treatment plan. Lazara Jon 08/17/2022 documented in this [id number] History of Present illness Narrative* father is [...] when manic * ros * no cp [facility] Work Phone: [phone]) [phone] History of Present illness NarrativePatient is a 26-year-old who comes in for a test of cure for trichomoniasis. Patient was here last week for test of cure for chlamydia. Patient reports that her partner has been treated and they havenot engaged in coitus since her diagnosis. Patient has no concerns today[address] Work Phone: [phone]) 401-218804-01-2022 History of Present illness NarrativePatient is a 26-year-old who comes in 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 Patient reports she has not been [...] She reports that she has recently started [address] Work Phone: [phone] 146-512507-09-2021 History of Present illness Narrative* Patient is [...] cutting.She is following with Dr Jackson at [facility] and seeing her counselor. She is currently [...] po bid and metformin 1000mg po bid. [facility] Work Phone: [phone]) 507-104807-26-2017 History of Past illness Narrative* Problem Noted Date Diagnosed Date Resolved Date Polyhydramnios 01/01/2017 07/11/2023 Threatened premature labor in third trimester 12/27/19 17 07/11/2023 Overview: December 26, 2016 Received betamethasone on 12/23 and 12/24/16. Piper Julian MD LGA (large for gestational age) 12/23/2016 07/11/2023 Overview: 12/23/16 - >95% Gestational proteinuria, third trimester 12/20/2016 07/11/2023 Overview: 12/20/16 - 24hr urine from [facility] on 12/13/16 was 323mg, BP & preE labs normal - KJ Gestational diabetes 12/20/2016 024 with care elsewhere, antepartum 12/12/2016 07/11/2023 Overview: 12/12/2016Patient is transferring care from [facility]. She states she has moved from [place] to [place] and wishes to be seen here.There is some notations by her previous doctor of non-compliance issues with keeping appointments and diabetic diet/Insulin dosages. She states she was seen at the [facility] 11/18 for decreased movement and then again about the 3rd week of October for threatened PTL. She states she was given Brethine in the hospital and sent home on no medications. She was last seen by her OB in [place] yesterday for [place] contractions. She denies any bleeding or LOF. Baby has been active. Some [place] contractions occasionally. Discussed with Dr Schulte and patient advised to monitor pain. If increases to call/come in. Kick counts discussed. TKRN Pre-existing type 2 diabetes mellitus in in third trimester 12/12/2016 07/11/2023 Overview: 12/23/16 - admitted to [place] for glucoregulation, likely will need delivery at 37 weeks - KJ 12/12/2016 She is a Type 2 diabetic and started Insulin during the .Last HGB A1c 6.9 on 11/14/2016.She sees an psych nurse, Dr Asif. Her records have been faxed here during the visit and are sent to [address] Gramajo review. TKRN January 14, 2017 EFW is approx 95%. Monitor closely, consider early delivery per MFM. Piper Julian MD documented as of this encounter (statuses as of 08/19/2023) [facility] Diagnosis Yeast vaginitis- Primary Late menses Other disorder of menstruation and other abnormal bleeding from female genital tract Vaginal discharge Leukorrhea, not specified as infective [facility]* Diagnosis Hyperglycemia due to diabetes mellitus (CMS/HCC) documented in this encounter [facility] Work Phone: Evaluation note* Diagnosis Exercise-induced asthma- Primary Exercise induced bronchospasm Hyperglycemia due to diabetes mellitus (CMS/HCC) documented in this encounter [facility] Work Phone: [phone] note* Diagnosis Hyperglycemia due to diabetes mellitus (CMS/HCC) documented in this encounter [facility] Work Phone: [phone] note* Diagnosis Necrobiosis lipoidica- Primary Degenerative skin disorder Hyperglycemia due to diabetes mellitus (CMS/HCC) documented in this encounter [facility] Work Phone: Evaluation note* Diagnosis Pain, dental- Primary Unspecified disorder of the teeth and supporting structures [facility] Diagnosis Sebaceous cyst- Primary Hyperglycemia due to diabetes mellitus (CMS/HCC) Exercise-induced asthma Exercise induced bronchospasm documented in this encounter [facility] Work Phone: Evaluation note* Diagnosis Urinary tract infection in mother during first trimester of ([facility])- Primary Herpes simplex vulvovaginitis documented in this encounter [facility] Work Phone: Evaluation note* Diagnosis Bacterial vaginosis- Primary Unspecified vaginitis and vulvovaginitis Less than 8 weeks gestation of ([facility]) documented in this encounter [facility] Work Phone: Evaluation note* Diagnosis Type 2 diabetes mellitus complicating , antepartum, first trimester- Primary Insulin controlled gestational diabetes mellitus (GDM) in first trimester High-risk , first trimester [facility]* Diagnosis Bipolar depression (Multi)- Primary Bipolar I disorder, most recent episode (or current) depressed, unspecified Hyperglycemia due to diabetes mellitus (Multi) Cigarette nicotine dependence with other nicotine-induced disorder documented in this encounter [facility] Work Phone: Evaluation note* Diagnosis Encounter [...] of the cervix documented in this encounter [facility]* Diagnosis Insulin controlled gestational diabetes mellitus (GDM) in first trimester documented in this encounter [facility]* Diagnosis Bacterial vaginosis- Primary Vaginitis and vulvovaginitis, unspecified documented in this encounter [facility] note* Diagnosis Insulin controlled gestational diabetes mellitus (GDM) in first trimester documented in this encounter [facility]* Diagnosis Necrobiosis lipoidica- Primary Degenerative skin disorder Hyperglycemia due to diabetes mellitus (Multi) documented in this encounter [facility] Work Phone: Evaluation note* Diagnosis Abdominal pain during in first trimester ([facility])- Primary documented in this encounter [facility] Work Phone: Evaluation note* Diagnosis Exercise-induced asthma ([facility])- Primary Exercise induced bronchospasm Hyperglycemia due to diabetes mellitus (Multi) Bipolar depression (Multi) Bipolar I disorder, most recent episode (or current) depressed, unspecified Necrobiosis lipoidica Degenerative skin disorder documented in this encounter [facility] Work Phone: Evaluation note* Diagnosis 10 [...] of unspecified chromosome documented in this encounter [facility]* Diagnosis Insulin controlled gestational diabetes mellitus (GDM) in first trimester documented in this encounter [facility]* Diagnosis Insulin controlled gestational diabetes mellitus (GDM) in first trimester documented in this encounter [facility]* Diagnosis Insulin controlled gestational diabetes mellitus (GDM) in first trimester documented in this encounter [facility]* Diagnosis Encounter for screening for malformation using ultrasound- Primary 13 weeks gestation of state, incidental documented in this encounter [facility]* Diagnosis H/O macrosomia in infant in prior , currently with other poor obstetric history Pre-existing type 2 diabetes mellitus in in first trimester Diabetes mellitus of mother, complicating , childbirth, or the puerperium, unspecified as to episode of care History of pre-eclampsia Personal history of other genital system and obstetric disorders [facility]* Diagnosis Pre-existing type 2 diabetes mellitus in in second trimester- Primary Diabetes mellitus of mother, complicating , childbirth, or the puerperium, unspecified as to episode of care documented in this encounter [facility]* Diagnosis Influenza A- Primary Influenza with other respiratory manifestations documented in this encounter [facility] Work Phone: Evaluation note* Diagnosis Pre-existing [...] at 32 weeks documented in this encounter [facility] note* Diagnosis Pre-existing type 2 diabetes [...] in first trimester documented in this encounter [facility] note* Diagnosis Pre-existing type 2 diabetes [...] in first trimester [facility]* Diagnosis Pre-existing type 2 diabetes [...] vulva and perineum [facility]* Diagnosis Pre-existing type 2 diabetes [...] , second trimester [facility]* Diagnosis Pre-existing type 2 diabetes [...] for anatomic survey documented in this encounter [facility] note* Diagnosis Pre-existing type 2 diabetes [...] currently Monthly growth assessment, measuring 11[facility]ile [facility] today * Assessment & Plan Note - Pooja Latham MD - 08/10/2024 9:40 AM ESTAssociated Problem(s): Obesity affecting in first trimester TWG around 13 lbs from chart review documented in this encounter [facility] note* Diagnosis Pre-existing type 2 diabetes [...] OB DIP B/O documented in this encounter [facility] note* Diagnosis Pre-existing type 2 diabetes [...] for anatomic survey documented in this encounter [facility]* Diagnosis Pre-existing type 2 diabetes [...] in first trimester documented in this encounter [facility]* Diagnosis Pre-existing type 2 diabetes [...] in first trimester documented in this encounter [facility]* Diagnosis Pre-existing type 2 diabetes [...] 1 [O35.9XX1]- Primary [facility]* Diagnosis Pre-existing type 2 diabetes mellitus in in first trimester ([facility])- Primary Diabetes mellitus of mother, complicating , childbirth, or the puerperium, unspecified as to episode of care History of pre-eclampsia Personal history of other genital system and obstetric disorders H/O macrosomia in in prior , currently ([facility]) with other poor obstetric history 17 weeks gestation of ([facility]) state, incidental Encounter for screening for malformation using ultrasound ([facility]) Obesity affecting in first trimester, unspecified obesity type ([facility])- Primary Herpes simplex type 2 (HSV-2) infection affecting , antepartum, unspecified trimester ([facility]) Pre-existing type 2 diabetes mellitus in in first trimester ([facility]) Diabetes mellitus of mother, complicating , childbirth, or the puerperium, unspecified as to episode of care 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 Encounter for supervision of high risk in first trimester, antepartum ([facility]) 21 weeks gestation of ([facility]) state, incidental Pre-existing type 2 diabetes mellitus in in first trimester ([facility])- Primary Diabetes mellitus of mother, complicating , childbirth, or the puerperium, unspecified as to episode of care Obesity affecting in first trimester, unspecified obesity type ([facility]) History of pre-eclampsia Personal history of other genital system and obstetric disorders H/O macrosomia in infant in prior , currently ([facility]) with other poor obstetric history History of bipolar disorder Personal history of affective disorder 21 weeks gestation of ([facility]) state, incidental Encounter for anatomic survey ([facility]) Encounter for anatomic survey Pre-existing type 2 diabetes mellitus in in first trimester ([facility])- Primary Diabetes mellitus of mother, complicating , childbirth, or the puerperium, unspecified as to episode of care Obesity affecting in first trimester, unspecified obesity type ([facility]) [facility]* Diagnosis Exercise-induced asthma Exercise induced bronchospasm Bipolar depression (Multi) Bipolar I disorder, most recent episode (or current) depressed, unspecified documented in this encounter [facility] Work Phone: Evaluation note* Diagnosis Pre-existing type 2 diabetes mellitus in in first trimester ([facility])- Primary Diabetes mellitus of mother, complicating , childbirth, or the puerperium, unspecified as to episode of care History of pre-eclampsia Personal history of other genital system and obstetric disorders H/O macrosomia in infant in prior , currently ([facility]) with other poor obstetric history 17 weeks gestation of ([facility]) state, incidental Encounter for screening for malformation using ultrasound ([facility]) Obesity affecting in first trimester, unspecified obesity type ([facility])- Primary Herpes simplex type 2 (HSV-2) infection affecting , antepartum, unspecified trimester ([facility]) Pre-existing type 2 diabetes mellitus in in first trimester ([facility]) Diabetes mellitus of mother, complicating , childbirth, or the puerperium, unspecified as to episode of care 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 Encounter for supervision of high risk in first trimester, antepartum ([facility]) 21 weeks gestation of ([facility]) state, incidental Pre-existing type 2 diabetes mellitus in in first trimester ([facility])- Primary Diabetes mellitus of mother, complicating , childbirth, or the puerperium, unspecified as to episode of care Obesity affecting in first trimester, unspecified obesity type ([facility]) History of pre-eclampsia Personal history of other genital system and obstetric disorders H/O macrosomia in infant in prior , currently ([facility]) with other poor obstetric history History of bipolar disorder Personal history of affective disorder 21 weeks gestation of ([facility]) state, incidental Encounter for anatomic survey ([facility]) Encounter for anatomic survey with uncertain dates in first trimester ([facility]) documented in this encounter [facility]* Diagnosis Pre-existing type 2 diabetes mellitus in in first trimester ([facility])- Primary Diabetes mellitus of mother, complicating , childbirth, or the puerperium, unspecified as to episode of care History of pre-eclampsia Personal history of other genital system and obstetric disorders H/O macrosomia in infant in prior , currently ([facility]) with other poor obstetric history 17 weeks gestation of ([facility]) state, incidental Encounter for screening for malformation using ultrasound ([facility]) Obesity affecting in first trimester, unspecified obesity type ([facility])- Primary Herpes simplex type 2 (HSV-2) infection affecting , antepartum, unspecified trimester ([facility]) Pre-existing type 2 diabetes mellitus in in first trimester ([facility]) Diabetes mellitus of mother, complicating , childbirth, or the puerperium, unspecified as to episode of care 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 Encounter for supervision of high risk in first trimester, antepartum ([facility]) 21 weeks gestation of ([facility]) state, incidental Pre-existing type 2 diabetes mellitus in in first trimester ([facility])- Primary Diabetes mellitus of mother, complicating , childbirth, or the puerperium, unspecified as to episode of care Obesity affecting in first trimester, unspecified obesity type ([facility]) History of pre-eclampsia Personal history of other genital system and obstetric disorders H/O macrosomia in in prior , currently ([facility]) with other poor obstetric history History of bipolar disorder Personal history of affective disorder 21 weeks gestation of ([facility]) state, incidental Encounter for anatomic survey ([facility]) Encounter for anatomic survey complication before ([facility])- Primary Other specified complication, antepartum documented in this encounter [facility] note* Diagnosis Pre-existing type 2 diabetes mellitus in in first trimester ([facility])- Primary Diabetes mellitus of mother, complicating , childbirth, or the puerperium, unspecified as to episode of care History of pre-eclampsia Personal history of other genital system and obstetric disorders H/O macrosomia in in prior , currently ([facility]) with other poor obstetric history 17 weeks gestation of ([facility]) state, incidental Encounter for screening for malformation using ultrasound ([facility]) Obesity affecting in first trimester, unspecified obesity type (HCC)- Primary Herpes simplex type 2 (HSV-2) infection affecting , antepartum, unspecified trimester ([facility]) Pre-existing type 2 diabetes mellitus in in first trimester ([facility]) Diabetes mellitus of mother, complicating , childbirth, or the puerperium, unspecified as to episode of care 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 Encounter for supervision of high risk in first trimester, antepartum ([facility]) 21 weeks gestation of ([facility]) state, incidental Pre-existing type 2 diabetes mellitus in in first trimester ([facility])- Primary Diabetes mellitus of mother, complicating , childbirth, or the puerperium, unspecified as to episode of care Obesity affecting in first trimester, unspecified obesity type ([facility]) History of pre-eclampsia Personal history of other genital system and obstetric disorders H/O macrosomia in in prior , currently ([facility]) with other poor obstetric history History of bipolar disorder Personal history of affective disorder 21 weeks gestation of ([facility]) state, incidental Encounter for anatomic survey ([facility]) Encounter for anatomic survey Screening for diabetes mellitus- Primary Obesity affecting in first trimester, unspecified obesity type ([facility]) Pre-existing type 2 diabetes mellitus in in first trimester ([facility]) Diabetes mellitus of mother, complicating , childbirth, or the puerperium, unspecified as to episode of care Herpes simplex type 2 (HSV-2) infection affecting , antepartum, unspecified trimester ([facility]) 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 Encounter for supervision of high risk in first trimester, antepartum ([facility]) 25 weeks gestation of ([facility]) state, incidental [facility] Pre-existing type 2 diabetes mellitus in in first trimester ([facility])- Primary Diabetes mellitus of mother, complicating , childbirth, or the puerperium, unspecified as to episode of care History of pre-eclampsia Personal history of other genital system and obstetric disorders H/O macrosomia in infant in prior , currently ([facility]) with other poor obstetric history 17 weeks gestation of ([facility]) state, incidental Encounter for screening for malformation using ultrasound ([facility]) Obesity affecting in first trimester, unspecified obesity type ([facility])- Primary Herpes simplex type 2 (HSV-2) infection affecting , antepartum, unspecified trimester ([facility]) Pre-existing type 2 diabetes mellitus in in first trimester ([facility]) Diabetes mellitus of mother, complicating , childbirth, or the puerperium, unspecified as to episode of care 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 Encounter for supervision of high risk in first trimester, antepartum ([facility]) 21 weeks gestation of ([facility]) state, incidental Pre-existing type 2 diabetes mellitus in in first trimester ([facility])- Primary Diabetes mellitus of mother, complicating , childbirth, or the puerperium, unspecified as to episode of care Obesity affecting in first trimester, unspecified obesity type ([facility]) History of pre-eclampsia Personal history of other genital system and obstetric disorders H/O macrosomia in infant in prior , currently ([facility]) with other poor obstetric history History of bipolar disorder Personal history of affective disorder 21 weeks gestation of ([facility]) state, incidental Encounter for anatomic survey ([facility]) Encounter for anatomic survey Type 2 diabetes mellitus during , antepartum, third trimester ([facility])- Primary Insulin controlled gestational diabetes mellitus (GDM) in first trimester ([facility]) High-risk , third trimester ([facility]) [facility] Diagnosis Pre-existing type 2 diabetes mellitus in in first trimester ([facility])- Primary Diabetes mellitus of mother, complicating , childbirth, or the puerperium, unspecified as to episode of care History of pre-eclampsia Personal history of other genital system and obstetric disorders H/O macrosomia in infant in prior , currently ([facility]) with other poor obstetric history 17 weeks gestation of ([facility]) state, incidental Encounter for screening for malformation using ultrasound ([facility]) Obesity affecting in first trimester, unspecified obesity type ([facility])- Primary Herpes simplex type 2 (HSV-2) infection affecting , antepartum, unspecified trimester ([facility]) Pre-existing type 2 diabetes mellitus in in first trimester ([facility]) Diabetes mellitus of mother, complicating , childbirth, or the puerperium, unspecified as to episode of care 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 Encounter for supervision of high risk in first trimester, antepartum ([facility]) 21 weeks gestation of ([facility]) state, incidental Pre-existing type 2 diabetes mellitus in in first trimester ([facility])- Primary Diabetes mellitus of mother, complicating , childbirth, or the puerperium, unspecified as to episode of care Obesity affecting in first trimester, unspecified obesity type ([facility]) History of pre-eclampsia Personal history of other genital system and obstetric disorders H/O macrosomia in infant in prior , currently ([facility]) with other poor obstetric history History of bipolar disorder Personal history of affective disorder 21 weeks gestation of ([facility]) state, incidental Encounter for anatomic survey ([facility]) Encounter for anatomic survey Procedure not carried out- Primary Procedure not carried out for other reasons Supervision of high risk in second trimester ([facility])- Primary Unspecified high-risk 27 weeks gestation of ([facility]) state, incidental Burning with urination Dysuria Vaginal discharge Leukorrhea, not specified as infective documented [facility] noteNo assessment information availableWTriHealth [facility] Work Phone: Evaluation note* Diagnosis Pre-existing type 2 diabetes mellitus in in first trimester ([facility])- Primary Diabetes mellitus of mother, complicating , childbirth, or the puerperium, unspecified as to episode of care History of pre-eclampsia Personal history of other genital system and obstetric disorders H/O macrosomia in infant in prior , currently ([facility]) with other poor obstetric history 17 weeks gestation of ([facility]) state, incidental Encounter for screening for malformation using ultrasound ([facility]) Obesity affecting in first trimester, unspecified obesity type ([facility])- Primary Herpes simplex type 2 (HSV-2) infection affecting , antepartum, unspecified trimester ([facility]) Pre-existing type 2 diabetes mellitus in in first trimester ([facility]) Diabetes mellitus of mother, complicating , childbirth, or the puerperium, unspecified as to episode of care 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 Encounter for supervision of high risk in first trimester, antepartum ([facility]) 21 weeks gestation of ([facility]) state, incidental Pre-existing type 2 diabetes mellitus in in first trimester ([facility])- Primary Diabetes mellitus of mother, complicating , childbirth, or the puerperium, unspecified as to episode of care Obesity affecting in first trimester, unspecified obesity type ([facility]) History of pre-eclampsia Personal history of other genital system and obstetric disorders H/O macrosomia in in prior , currently ([facility]) with other poor obstetric history History of bipolar disorder Personal history of affective disorder 21 weeks gestation of ([facility]) state, incidental Encounter for anatomic survey ([facility]) Encounter for anatomic survey Supervision of high risk in second trimester ([facility])- Primary Unspecified high-risk 27 weeks gestation of ([facility]) state, incidental Burning with urination Dysuria Vaginal discharge Leukorrhea, not specified as infective HSV (herpes simplex virus) infection Herpes simplex without mention of complication [facility] Diagnosis Pre-existing type 2 diabetes mellitus in in first trimester ([facility])- Primary Diabetes mellitus of mother, complicating , childbirth, or the puerperium, unspecified as to episode of care History of pre-eclampsia Personal history of other genital system and obstetric disorders H/O macrosomia in infant in prior , currently ([facility]) with other poor obstetric history 17 weeks gestation of ([facility]) state, incidental Encounter for screening for malformation using ultrasound ([facility]) Obesity affecting in first trimester, unspecified obesity type ([facility])- Primary Herpes simplex type 2 (HSV-2) infection affecting , antepartum, unspecified trimester ([facility]) Pre-existing type 2 diabetes mellitus in in first trimester ([facility]) Diabetes mellitus of mother, complicating , childbirth, or the puerperium, unspecified as to episode of care 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 Encounter for supervision of high risk in first trimester, antepartum ([facility]) 21 weeks gestation of ([facility]) state, incidental Pre-existing type 2 diabetes mellitus in in first trimester ([facility])- Primary Diabetes mellitus of mother, complicating , childbirth, or the puerperium, unspecified as to episode of care Obesity affecting in first trimester, unspecified obesity type ([facility]) History of pre-eclampsia Personal history of other genital system and obstetric disorders H/O macrosomia in in prior , currently ([facility]) with other poor obstetric history History of bipolar disorder Personal history of affective disorder 21 weeks gestation of ([facility]) state, incidental Encounter for anatomic survey ([facility]) Encounter for anatomic survey BV (bacterial vaginosis)- Primary Vaginitis and vulvovaginitis, unspecified documented in this encounter [facility] note* Diagnosis Pre-existing type 2 diabetes mellitus in in first trimester ([facility])- Primary Diabetes mellitus of mother, complicating , childbirth, or the puerperium, unspecified as to episode of care History of pre-eclampsia Personal history of other genital system and obstetric disorders H/O macrosomia in in prior , currently ([facility]) with other poor obstetric history 17 weeks gestation of ([facility]) state, incidental Encounter for screening for malformation using ultrasound ([facility]) Obesity affecting in first trimester, unspecified obesity type ([facility])- Primary Herpes simplex type 2 (HSV-2) infection affecting , antepartum, unspecified trimester ([facility]) Pre-existing type 2 diabetes mellitus in in first trimester ([facility]) Diabetes mellitus of mother, complicating , childbirth, or the puerperium, unspecified as to episode of care 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 Encounter for supervision of high risk in first trimester, antepartum ([facility]) 21 weeks gestation of ([facility]) state, incidental Pre-existing type 2 diabetes mellitus in in first trimester ([facility])- Primary Diabetes mellitus of mother, complicating , childbirth, or the puerperium, unspecified as to episode of care Obesity affecting in first trimester, unspecified obesity type ([facility]) History of pre-eclampsia Personal history of other genital system and obstetric disorders H/O macrosomia in in prior , currently ([facility]) with other poor obstetric history History of bipolar disorder Personal history of affective disorder 21 weeks gestation of ([facility]) state, incidental Encounter for anatomic survey ([facility]) Encounter for anatomic survey Supervision of high risk in third trimester ([facility])- Primary Unspecified high-risk History of pre-eclampsia Personal history of other genital system and obstetric disorders 29 weeks gestation of ([facility]) state, incidental Pre-existing type 2 diabetes mellitus in in third trimester ([facility]) Diabetes mellitus of mother, complicating , childbirth, or the puerperium, unspecified as to episode of care 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 Pre-existing type 2 diabetes mellitus in in first trimester ([facility]) Diabetes mellitus of mother, complicating , childbirth, or the puerperium, unspecified as to episode of care Tobacco smoking complicating in first trimester ([facility]) Tobacco use disorder complicating , childbirth, or the puerperium, antepartum condition or complication History of recurrent UTI (urinary tract infection) Personal history of urinary (tract) infection 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, 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, 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 long-term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 ([facility]) Herpes simplex type 2 (HSV-2) infection affecting , antepartum, unspecified trimester ([facility]) * Assessment & Plan Note - Piper Julian MD - 10/04/2024 11:19 AM EDT Associated Problem(s): History of pre-eclampsia Orders: ECG COMPLETE; Future NON-STRESS TEST; Standing PROTEIN / CREATININE RATIO; Future BACTERIAL CULTURE, URINE; Future * Assessment & Plan Note - Piper Julian MD - 10/04/2024 11:19 AM EDT Associated Problem(s): 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 and NIPT test this previous child had testing at [facility] * Assessment & Plan Note - Piper Julian MD - 10/04/2024 11:19 AM EDT Associated Problem(s): Pre-existing type 2 diabetes mellitus in in first trimester ([facility]) follows w/ endocrine, hgba1 c controlled dm retinopathy - has f/u w/ optho ecg ordered/encouraged check prot/creat ratio today 28 week labs done * Assessment & Plan Note - Piper Julian MD - 10/04/2024 11:19 AM EDT Associated Problem(s): Tobacco smoking complicating in first trimester ([facility]) decreased to 2 cig a day, encouraged [...] (HSV-2) infection affecting , antepartum, unspecified trimester ([facility]) prophylaxis ordered, no outbreaks recently [facility] Diagnosis Pre-existing type 2 diabetes mellitus in in first trimester ([facility])- Primary Diabetes mellitus of mother, complicating , childbirth, or the puerperium, unspecified as to episode of care History of pre-eclampsia Personal history of other genital system and obstetric disorders H/O macrosomia in infant in prior , currently ([facility]) with other poor obstetric history 17 weeks gestation of ([facility]) state, incidental Encounter for screening for malformation using ultrasound ([facility]) Obesity affecting in first trimester, unspecified obesity type ([facility])- Primary Herpes simplex type 2 (HSV-2) infection affecting , antepartum, unspecified trimester ([facility]) Pre-existing type 2 diabetes mellitus in in first trimester ([facility]) Diabetes mellitus of mother, complicating , childbirth, or the puerperium, unspecified as to episode of care 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 Encounter for supervision of high risk in first trimester, antepartum ([facility]) 21 weeks gestation of ([facility]) state, incidental Pre-existing type 2 diabetes mellitus in in first trimester ([facility])- Primary Diabetes mellitus of mother, complicating , childbirth, or the puerperium, unspecified as to episode of care Obesity affecting in first trimester, unspecified obesity type ([facility]) History of pre-eclampsia Personal history of other genital system and obstetric disorders H/O macrosomia in infant in prior , currently ([facility]) with other poor obstetric history History of bipolar disorder Personal history of affective disorder 21 weeks gestation of ([facility]) state, incidental Encounter for anatomic survey ([facility]) Encounter for anatomic survey Supervision of high risk in third trimester ([facility])- Primary Unspecified high-risk History of pre-eclampsia Personal history of other genital system and obstetric disorders 29 weeks gestation of ([facility]) state, incidental Pre-existing type 2 diabetes mellitus in in third trimester ([facility]) Diabetes mellitus of mother, complicating , childbirth, or the puerperium, unspecified as to episode of care 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 Pre-existing type 2 diabetes mellitus in in first trimester ([facility]) Diabetes mellitus of mother, complicating , childbirth, or the puerperium, unspecified as to episode of care Tobacco smoking complicating in first trimester ([facility]) Tobacco use disorder complicating , childbirth, or the puerperium, antepartum condition or complication History of recurrent UTI (urinary tract infection) Personal history of urinary (tract) infection 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, 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, 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 long-term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 ([facility]) Herpes simplex type 2 (HSV-2) infection affecting , antepartum, unspecified trimester ([facility]) Maternal care for (suspected) abnormality and damage, unspecified, fetus 1 ([facility])- Primary [facility] Diagnosis Pre-existing type 2 diabetes mellitus in in first trimester ([facility])- Primary Diabetes mellitus of mother, complicating , childbirth, or the puerperium, unspecified as to episode of care History of pre-eclampsia Personal history of other genital system and obstetric disorders H/O macrosomia in in prior , currently ([facility]) with other poor obstetric history 17 weeks gestation of ([facility]) state, incidental Encounter for screening for malformation using ultrasound ([facility]) Obesity affecting in first trimester, unspecified obesity type ([facility])- Primary Herpes simplex type 2 (HSV-2) infection affecting , antepartum, unspecified trimester ([facility]) Pre-existing type 2 diabetes mellitus in in first trimester ([facility]) Diabetes mellitus of mother, complicating , childbirth, or the puerperium, unspecified as to episode of care 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 Encounter for supervision of high risk in first trimester, antepartum ([facility]) 21 weeks gestation of ([facility]) state, incidental Pre-existing type 2 diabetes mellitus in in first trimester ([facility])- Primary Diabetes mellitus of mother, complicating , childbirth, or the puerperium, unspecified as to episode of care Obesity affecting in first trimester, unspecified obesity type ([facility]) History of pre-eclampsia Personal history of other genital system and obstetric disorders H/O macrosomia in infant in prior , currently ([facility]) with other poor obstetric history History of bipolar disorder Personal history of affective disorder 21 weeks gestation of ([facility]) state, incidental Encounter for anatomic survey ([facility]) Encounter for anatomic survey Supervision of high risk in third trimester ([facility])- Primary Unspecified high-risk History of pre-eclampsia Personal history of other genital system and obstetric disorders 29 weeks gestation of ([facility]) state, incidental Pre-existing type 2 diabetes mellitus in in third trimester ([facility]) Diabetes mellitus of mother, complicating , childbirth, or the puerperium, unspecified as to episode of care 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 Pre-existing type 2 diabetes mellitus in in first trimester ([facility]) Diabetes mellitus of mother, complicating , childbirth, or the puerperium, unspecified as to episode of care Tobacco smoking complicating in first trimester ([facility]) Tobacco use disorder complicating , childbirth, or the puerperium, antepartum condition or complication History of recurrent UTI (urinary tract infection) Personal history of urinary (tract) infection 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, 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, 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 ([facility] SYSTEM) Herpes simplex type 2 (HSV-2) infection affecting , antepartum, unspecified trimester ([facility]) Supervision of high risk in third trimester ([facility])- Primary Unspecified high-risk Pre-existing type 2 diabetes mellitus in in third trimester ([facility]) Diabetes mellitus of mother, complicating , childbirth, or the puerperium, unspecified as to episode of care Herpes simplex type 2 (HSV-2) infection affecting , antepartum, unspecified trimester ([facility]) H/O macrosomia in in prior , currently ([facility]) with other poor obstetric history History of pre-eclampsia Personal history of other genital system and obstetric disorders 31 weeks gestation of ([facility]) state, incidental * Assessment & Plan Note - Whit Morton MD - 10/18/2024 4:08 PM EDT Associated Problem(s): Herpes simplex type 2 (HSV-2) infection affecting , antepartum, unspecified trimester ([facility]) Taking acyclovir * Assessment & Plan Note - Whit Morton MD - 10/18/2024 4:08 PM EDT Associated Problem(s): H/O macrosomia in in prior , currently ([facility]) Growth us scheduled * Assessment & Plan Note - Whit Morton MD - 10/18/2024 4:08 PM EDT Associated Problem(s): History of pre-eclampsia Continue [facility]SA [facility] Diagnosis Pre-existing type 2 diabetes mellitus in in first trimester ([facility])- Primary Diabetes mellitus of mother, complicating , childbirth, or the puerperium, unspecified as to episode of care History of pre-eclampsia Personal history of other genital system and obstetric disorders H/O macrosomia in in prior , currently ([facility]) with other poor obstetric history 17 weeks gestation of ([facility]) state, incidental Encounter for screening for malformation using ultrasound ([facility]) Obesity affecting in first trimester, unspecified obesity type ([facility])- Primary Herpes simplex type 2 (HSV-2) infection affecting , antepartum, unspecified trimester ([facility]) Pre-existing type 2 diabetes mellitus in in first trimester ([facility]) Diabetes mellitus of mother, complicating , childbirth, or the puerperium, unspecified as to episode of care 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 Encounter for supervision of high risk in first trimester, antepartum ([facility]) 21 weeks gestation of ([facility]) state, incidental Pre-existing type 2 diabetes mellitus in in first trimester ([facility])- Primary Diabetes mellitus of mother, complicating , childbirth, or the puerperium, unspecified as to episode of care Obesity affecting in first trimester, unspecified obesity type ([facility]) History of pre-eclampsia Personal history of other genital system and obstetric disorders H/O macrosomia in infant in prior , currently ([facility]) with other poor obstetric history History of bipolar disorder Personal history of affective disorder 21 weeks gestation of ([facility]) state, incidental Encounter for anatomic survey ([facility]) Encounter for anatomic survey Supervision of high risk in third trimester ([facility])- Primary Unspecified high-risk History of pre-eclampsia Personal history of other genital system and obstetric disorders 29 weeks gestation of ([facility]) state, incidental Pre-existing type 2 diabetes mellitus in in third trimester ([facility]) Diabetes mellitus of mother, complicating , childbirth, or the puerperium, unspecified as to episode of care 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 Pre-existing type 2 diabetes mellitus in in first trimester ([facility]) Diabetes mellitus of mother, complicating , childbirth, or the puerperium, unspecified as to episode of care Tobacco smoking complicating in first trimester ([facility]) Tobacco use disorder complicating , childbirth, or the puerperium, antepartum condition or complication History of recurrent UTI (urinary tract infection) Personal history of urinary (tract) infection 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, 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, 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 ([facility]) Herpes simplex type 2 (HSV-2) infection affecting , antepartum, unspecified trimester ([facility]) Supervision of high risk in third trimester ([facility])- Primary Unspecified high-risk Pre-existing type 2 diabetes mellitus in in third trimester ([facility]) Diabetes mellitus of mother, complicating , childbirth, or the puerperium, unspecified as to episode of care Herpes simplex type 2 (HSV-2) infection affecting , antepartum, unspecified trimester ([facility]) H/O macrosomia in in prior , currently ([facility]) with other poor obstetric history History of pre-eclampsia Personal history of other genital system and obstetric disorders 31 weeks gestation of ([facility]) state, incidental Supervision of high risk in third trimester ([facility])- Primary Unspecified high-risk Pre-existing type 2 diabetes mellitus in in third trimester ([facility]) Diabetes mellitus of mother, complicating , childbirth, [...] METABOLIC PANEL; Future [facility] Diagnosis Pre-existing type 2 diabetes mellitus in in first trimester ([facility])- Primary Diabetes mellitus of mother, complicating , childbirth, or the puerperium, unspecified as to episode of care History of pre-eclampsia Personal history of other genital system and obstetric disorders H/O macrosomia in in prior , currently ([facility]) with other poor obstetric history 17 weeks gestation of ([facility]) state, incidental Encounter for screening for malformation using ultrasound ([facility]) Obesity affecting in first trimester, unspecified obesity type ([facility])- Primary Herpes simplex type 2 (HSV-2) infection affecting , antepartum, unspecified trimester ([facility]) Pre-existing type 2 diabetes mellitus in in first trimester ([facility]) Diabetes mellitus of mother, complicating , childbirth, or the puerperium, unspecified as to episode of care 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 Encounter for supervision of high risk in first trimester, antepartum ([facility]) 21 weeks gestation of ([facility]) state, incidental Pre-existing type 2 diabetes mellitus in in first trimester ([facility])- Primary Diabetes mellitus of mother, complicating , childbirth, or the puerperium, unspecified as to episode of care Obesity affecting in first trimester, unspecified obesity type ([facility]) History of pre-eclampsia Personal history of other genital system and obstetric disorders H/O macrosomia in in prior , currently ([facility]) with other poor obstetric history History of bipolar disorder Personal history of affective disorder 21 weeks gestation of ([facility]) state, incidental Encounter for anatomic survey ([facility]) Encounter for anatomic survey Supervision of high risk in third trimester ([facility])- Primary Unspecified high-risk History of pre-eclampsia Personal history of other genital system and obstetric disorders 29 weeks gestation of ([facility]) state, incidental Pre-existing type 2 diabetes mellitus in in third trimester ([facility]) Diabetes mellitus of mother, complicating , childbirth, or the puerperium, unspecified as to episode of care 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 Pre-existing type 2 diabetes mellitus in in first trimester ([facility]) Diabetes mellitus of mother, complicating , childbirth, or the puerperium, unspecified as to episode of care Tobacco smoking complicating in first trimester ([facility]) Tobacco use disorder complicating , childbirth, or the puerperium, antepartum condition or complication History of recurrent UTI (urinary tract infection) Personal history of urinary (tract) infection 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, 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, 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 ([facility]) Herpes simplex type 2 (HSV-2) infection affecting , antepartum, unspecified trimester ([facility]) Supervision of high risk in third trimester ([facility])- Primary Unspecified high-risk Pre-existing type 2 diabetes mellitus in in third trimester ([facility]) Diabetes mellitus of mother, complicating , childbirth, or the puerperium, unspecified as to episode of care Herpes simplex type 2 (HSV-2) infection affecting , antepartum, unspecified trimester ([facility]) H/O macrosomia in in prior , currently ([facility]) with other poor obstetric history History of pre-eclampsia Personal history of other genital system and obstetric disorders 31 weeks gestation of ([facility]) state, incidental Supervision of high risk in third trimester ([facility])- Primary Unspecified high-risk Pre-existing type 2 diabetes mellitus in in third trimester ([facility]) Diabetes mellitus of mother, complicating , childbirth, or the puerperium, unspecified as to episode of care Exposure to parvovirus Contact with or exposure to other viral diseases History of pre-eclampsia Personal history of other genital system and obstetric disorders Pre-existing type 2 diabetes mellitus in in first trimester ([facility])- Primary Diabetes mellitus of mother, complicating , childbirth, or the puerperium, unspecified as to episode of care Obesity affecting in first trimester, unspecified obesity type ([facility]) 33 weeks gestation of ([facility]) state, incidental Pre-existing type 2 diabetes mellitus in in third trimester ([facility])- Primary Diabetes mellitus of mother, complicating , childbirth, or the puerperium, unspecified as to episode of care History of pre-eclampsia Personal history of other genital system and obstetric disorders H/O macrosomia in in prior , currently ([facility]) with other poor obstetric history 33 weeks gestation of ([facility]) state, incidental Request for sterilization Herpes simplex type 2 (HSV-2) infection affecting , antepartum, unspecified trimester ([facility]) [facility] Diagnosis Pre-existing type 2 diabetes mellitus in in first trimester ([facility])- Primary Diabetes mellitus of mother, complicating , childbirth, or the puerperium, unspecified as to episode of care History of pre-eclampsia Personal history of other genital system and obstetric disorders H/O macrosomia in in prior , currently ([facility]) with other poor obstetric history 17 weeks gestation of ([facility]) state, incidental Encounter for screening for malformation using ultrasound ([facility]) Obesity affecting in first trimester, unspecified obesity type ([facility])- Primary Herpes simplex type 2 (HSV-2) infection affecting , antepartum, unspecified trimester ([facility]) Pre-existing type 2 diabetes mellitus in in first trimester ([facility]) Diabetes mellitus of mother, complicating , childbirth, or the puerperium, unspecified as to episode of care 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 Encounter for supervision of high risk in first trimester, antepartum ([facility]) 21 weeks gestation of ([facility]) state, incidental Pre-existing type 2 diabetes mellitus in in first trimester ([facility])- Primary Diabetes mellitus of mother, complicating , childbirth, or the puerperium, unspecified as to episode of care Obesity affecting in first trimester, unspecified obesity type ([facility]) History of pre-eclampsia Personal history of other genital system and obstetric disorders H/O macrosomia in in prior , currently ([facility]) with other poor obstetric history History of bipolar disorder Personal history of affective disorder 21 weeks gestation of ([facility]) state, incidental Encounter for anatomic survey ([facility]) Encounter for anatomic survey Supervision of high risk in third trimester ([facility])- Primary Unspecified high-risk History of pre-eclampsia Personal history of other genital system and obstetric disorders 29 weeks gestation of ([facility]) state, incidental Pre-existing type 2 diabetes mellitus in in third trimester ([facility]) Diabetes mellitus of mother, complicating , childbirth, or the puerperium, unspecified as to episode of care 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 Pre-existing type 2 diabetes mellitus in in first trimester ([facility]) Diabetes mellitus of mother, complicating , childbirth, or the puerperium, unspecified as to episode of care Tobacco smoking complicating in first trimester ([facility]) Tobacco use disorder complicating , childbirth, or the puerperium, antepartum condition or complication History of recurrent UTI (urinary tract infection) Personal history of urinary (tract) infection 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, 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, 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 long-term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 ([facility]) Herpes simplex type 2 (HSV-2) infection affecting , antepartum, unspecified trimester ([facility]) Supervision of high risk in third trimester ([facility])- Primary Unspecified high-risk Pre-existing type 2 diabetes mellitus in in third trimester ([facility]) Diabetes mellitus of mother, complicating , childbirth, or the puerperium, unspecified as to episode of care Herpes simplex type 2 (HSV-2) infection affecting , antepartum, unspecified trimester ([facility]) H/O macrosomia in infant in prior , currently ([facility]) with other poor obstetric history History of pre-eclampsia Personal history of other genital system and obstetric disorders 31 weeks gestation of ([facility]) state, incidental Supervision of high risk in third trimester ([facility])- Primary Unspecified high-risk Pre-existing type 2 diabetes mellitus in in third trimester ([facility]) Diabetes mellitus of mother, complicating , childbirth, or the puerperium, unspecified as to episode of care Exposure to parvovirus Contact with or exposure to other viral diseases History of pre-eclampsia Personal history of other genital system and obstetric disorders Pre-existing type 2 diabetes mellitus in in third trimester ([facility])- Primary Diabetes mellitus of mother, complicating , childbirth, or the puerperium, unspecified as to episode of care History of pre-eclampsia Personal history of other genital system and obstetric disorders H/O macrosomia in in prior , currently ([facility]) with other poor obstetric history 33 weeks gestation of ([facility]) state, incidental Request for sterilization Herpes simplex type 2 (HSV-2) infection affecting , antepartum, unspecified trimester ([facility]) * Assessment & Plan Note - William [...] H/O macrosomia in in prior , currently ([facility]) EFW on growth US shows AGA and expected to be smaller than 1st baby. Growth US with [facility] today. Orders: URINE OB DIP B/O * Assessment & Plan Note - William Gramajo MD - 11/02/2024 11:08 AM EDTAssociated Problem(s): Herpes simplex type 2 (HSV-2) infection affecting , antepartum, unspecified trimester ([facility]) On acyclovir prophylaxis [facility] Diagnosis Pre-existing type 2 diabetes mellitus in in first trimester ([facility])- Primary Diabetes mellitus of mother, complicating , childbirth, or the puerperium, unspecified as to episode of care History of pre-eclampsia Personal history of other genital system and obstetric disorders H/O macrosomia in in prior , currently ([facility]) with other poor obstetric history 17 weeks gestation of ([facility]) state, incidental Encounter for screening for malformation using ultrasound ([facility]) Obesity affecting in first trimester, unspecified obesity type ([facility])- Primary Herpes simplex type 2 (HSV-2) infection affecting , antepartum, unspecified trimester ([facility]) Pre-existing type 2 diabetes mellitus in in first trimester ([facility]) Diabetes mellitus of mother, complicating , childbirth, or the puerperium, unspecified as to episode of care 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 Encounter for supervision of high risk in first trimester, antepartum ([facility]) 21 weeks gestation of ([facility]) state, incidental Pre-existing type 2 diabetes mellitus in in first trimester ([facility])- Primary Diabetes mellitus of mother, complicating , childbirth, or the puerperium, unspecified as to episode of care Obesity affecting in first trimester, unspecified obesity type ([facility]) History of pre-eclampsia Personal history of other genital system and obstetric disorders H/O macrosomia in in prior , currently ([facility]) with other poor obstetric history History of bipolar disorder Personal history of affective disorder 21 weeks gestation of ([facility]) state, incidental Encounter for anatomic survey ([facility]) Encounter for anatomic survey Supervision of high risk in third trimester ([facility])- Primary Unspecified high-risk History of pre-eclampsia Personal history of other genital system and obstetric disorders 29 weeks gestation of ([facility]) state, incidental Pre-existing type 2 diabetes mellitus in in third trimester ([facility]) Diabetes mellitus of mother, complicating , childbirth, or the puerperium, unspecified as to episode of care 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 Pre-existing type 2 diabetes mellitus in in first trimester ([facility]) Diabetes mellitus of mother, complicating , childbirth, or the puerperium, unspecified as to episode of care Tobacco smoking complicating in first trimester ([facility]) Tobacco use disorder complicating , childbirth, or the puerperium, antepartum condition or complication History of recurrent UTI (urinary tract infection) Personal history of urinary (tract) infection 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, 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, 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 ([facility]) Herpes simplex type 2 (HSV-2) infection affecting , antepartum, unspecified trimester ([facility]) Supervision of high risk in third trimester ([facility])- Primary Unspecified high-risk Pre-existing type 2 diabetes mellitus in in third trimester ([facility]) Diabetes mellitus of mother, complicating , childbirth, or the puerperium, unspecified as to episode of care Herpes simplex type 2 (HSV-2) infection affecting , antepartum, unspecified trimester ([facility]) H/O macrosomia in in prior , currently ([facility]) with other poor obstetric history History of pre-eclampsia Personal history of other genital system and obstetric disorders 31 weeks gestation of ([facility]) state, incidental Supervision of high risk in third trimester ([facility])- Primary Unspecified high-risk Pre-existing type 2 diabetes mellitus in in third trimester ([facility]) Diabetes mellitus of mother, complicating , childbirth, or the puerperium, unspecified as to episode of care Exposure to parvovirus Contact with or exposure to other viral diseases History of pre-eclampsia Personal history of other genital system and obstetric disorders Pre-existing type 2 diabetes mellitus in in third trimester ([facility])- Primary Diabetes mellitus of mother, complicating , childbirth, or the puerperium, unspecified as to episode of care History of pre-eclampsia Personal history of other genital system and obstetric disorders H/O macrosomia in in prior , currently ([facility]) with other poor obstetric history 33 weeks gestation of ([facility]) state, incidental Request for sterilization Herpes simplex type 2 (HSV-2) infection affecting , antepartum, unspecified trimester ([facility]) Type 2 diabetes mellitus affecting in third trimester, antepartum ([facility])- Primary High-risk , third trimester ([facility]) documented in this encounter [facility] note* Diagnosis Pre-existing type 2 diabetes mellitus in in first trimester ([facility])- Primary Diabetes mellitus of mother, complicating , childbirth, or the puerperium, unspecified as to episode of care History of pre-eclampsia Personal history of other genital system and obstetric disorders H/O macrosomia in in prior , currently ([facility]) with other poor obstetric history 17 weeks gestation of ([facility]) state, incidental Encounter for screening for malformation using ultrasound ([facility]) Obesity affecting in first trimester, unspecified obesity type ([facility])- Primary Herpes simplex type 2 (HSV-2) infection affecting , antepartum, unspecified trimester ([facility]) Pre-existing type 2 diabetes mellitus in in first trimester ([facility]) Diabetes mellitus of mother, complicating , childbirth, or the puerperium, unspecified as to episode of care 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 Encounter for supervision of high risk in first trimester, antepartum ([facility]) 21 weeks gestation of ([facility]) state, incidental Pre-existing type 2 diabetes mellitus in in first trimester ([facility])- Primary Diabetes mellitus of mother, complicating , childbirth, or the puerperium, unspecified as to episode of care Obesity affecting in first trimester, unspecified obesity type ([facility]) History of pre-eclampsia Personal history of other genital system and obstetric disorders H/O macrosomia in infant in prior , currently ([facility]) with other poor obstetric history History of bipolar disorder Personal history of affective disorder 21 weeks gestation of ([facility]) state, incidental Encounter for anatomic survey ([facility]) Encounter for anatomic survey Supervision of high risk in third trimester ([facility])- Primary Unspecified high-risk History of pre-eclampsia Personal history of other genital system and obstetric disorders 29 weeks gestation of ([facility]) state, incidental Pre-existing type 2 diabetes mellitus in in third trimester ([facility]) Diabetes mellitus of mother, complicating , childbirth, or the puerperium, unspecified as to episode of care 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 Pre-existing type 2 diabetes mellitus in in first trimester ([facility]) Diabetes mellitus of mother, complicating , childbirth, or the puerperium, unspecified as to episode of care Tobacco smoking complicating in first trimester ([facility]) Tobacco use disorder complicating , childbirth, or the puerperium, antepartum condition or complication History of recurrent UTI (urinary tract infection) Personal history of urinary (tract) infection 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, 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, 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 ([facility]) Herpes simplex type 2 (HSV-2) infection affecting , antepartum, unspecified trimester ([facility]) Supervision of high risk in third trimester ([facility])- Primary Unspecified high-risk Pre-existing type 2 diabetes mellitus in in third trimester ([facility]) Diabetes mellitus of mother, complicating , childbirth, or the puerperium, unspecified as to episode of care Herpes simplex type 2 (HSV-2) infection affecting , antepartum, unspecified trimester ([facility]) H/O macrosomia in in prior , currently ([facility]) with other poor obstetric history History of pre-eclampsia Personal history of other genital system and obstetric disorders 31 weeks gestation of ([facility]) state, incidental Supervision of high risk in third trimester ([facility])- Primary Unspecified high-risk Pre-existing type 2 diabetes mellitus in in third trimester ([facility]) Diabetes mellitus of mother, complicating , childbirth, or the puerperium, unspecified as to episode of care Exposure to parvovirus Contact with or exposure to other viral diseases History of pre-eclampsia Personal history of other genital system and obstetric disorders Pre-existing type 2 diabetes mellitus in in third trimester ([facility])- Primary Diabetes mellitus of mother, complicating , childbirth, or the puerperium, unspecified as to episode of care History of pre-eclampsia Personal history of other genital system and obstetric disorders H/O macrosomia in infant in prior , currently ([facility]) with other poor obstetric history 33 weeks gestation of ([facility]) state, incidental Request for sterilization Herpes simplex type 2 (HSV-2) infection affecting , antepartum, unspecified trimester ([facility]) Type 2 diabetes mellitus during , antepartum, third trimester ([facility])- Primary documented in this encounter [facility] note* Diagnosis Pre-existing type 2 diabetes mellitus in in first trimester ([facility])- Primary Diabetes mellitus of mother, complicating , childbirth, or the puerperium, unspecified as to episode of care History of pre-eclampsia Personal history of other genital system and obstetric disorders H/O macrosomia in in prior , currently ([facility]) with other poor obstetric history 17 weeks gestation of ([facility]) state, incidental Encounter for screening for malformation using ultrasound ([facility]) Obesity affecting in first trimester, unspecified obesity type ([facility])- Primary Herpes simplex type 2 (HSV-2) infection affecting , antepartum, unspecified trimester ([facility]) Pre-existing type 2 diabetes mellitus in in first trimester ([facility]) Diabetes mellitus of mother, complicating , childbirth, or the puerperium, unspecified as to episode of care 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 Encounter for supervision of high risk in first trimester, antepartum ([facility]) 21 weeks gestation of ([facility]) state, incidental Pre-existing type 2 diabetes mellitus in in first trimester ([facility])- Primary Diabetes mellitus of mother, complicating , childbirth, or the puerperium, unspecified as to episode of care Obesity affecting in first trimester, unspecified obesity type ([facility]) History of pre-eclampsia Personal history of other genital system and obstetric disorders H/O macrosomia in infant in prior , currently ([facility]) with other poor obstetric history History of bipolar disorder Personal history of affective disorder 21 weeks gestation of ([facility]) state, incidental Encounter for anatomic survey ([facility]) Encounter for anatomic survey Supervision of high risk in third trimester ([facility])- Primary Unspecified high-risk History of pre-eclampsia Personal history of other genital system and obstetric disorders 29 weeks gestation of ([facility]) state, incidental Pre-existing type 2 diabetes mellitus in in third trimester ([facility]) Diabetes mellitus of mother, complicating , childbirth, or the puerperium, unspecified as to episode of care 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 Pre-existing type 2 diabetes mellitus in in first trimester ([facility]) Diabetes mellitus of mother, complicating , childbirth, or the puerperium, unspecified as to episode of care Tobacco smoking complicating in first trimester ([facility]) Tobacco use disorder complicating , childbirth, or the puerperium, antepartum condition or complication History of recurrent UTI (urinary tract infection) Personal history of urinary (tract) infection 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, 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, 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 ([facility]) Herpes simplex type 2 (HSV-2) infection affecting , antepartum, unspecified trimester ([facility]) Supervision of high risk in third trimester ([facility])- Primary Unspecified high-risk Pre-existing type 2 diabetes mellitus in in third trimester ([facility]) Diabetes mellitus of mother, complicating , childbirth, or the puerperium, unspecified as to episode of care Herpes simplex type 2 (HSV-2) infection affecting , antepartum, unspecified trimester ([facility]) H/O macrosomia in infant in prior , currently ([facility]) with other poor obstetric history History of pre-eclampsia Personal history of other genital system and obstetric disorders 31 weeks gestation of ([facility]) state, incidental Supervision of high risk in third trimester ([facility])- Primary Unspecified high-risk Pre-existing type 2 diabetes mellitus in in third trimester ([facility]) Diabetes mellitus of mother, complicating , childbirth, or the puerperium, unspecified as to episode of care Exposure to parvovirus Contact with or exposure to other viral diseases History of pre-eclampsia Personal history of other genital system and obstetric disorders Pre-existing type 2 diabetes mellitus in in third trimester ([facility])- Primary Diabetes mellitus of mother, complicating , childbirth, or the puerperium, unspecified as to episode of care History of pre-eclampsia Personal history of other genital system and obstetric disorders H/O macrosomia in in prior , currently ([facility]) with other poor obstetric history 33 weeks gestation of ([facility]) state, incidental Request for sterilization Herpes simplex type 2 (HSV-2) infection affecting , antepartum, unspecified trimester ([facility]) complication before ([facility]) Other specified complication, antepartum [facility] Diagnosis Pre-existing type 2 diabetes mellitus in in first trimester ([facility])- Primary Diabetes mellitus of mother, complicating , childbirth, or the puerperium, unspecified as to episode of care History of pre-eclampsia Personal history of other genital system and obstetric disorders H/O macrosomia in infant in prior , currently ([facility]) with other poor obstetric history 17 weeks gestation of ([facility]) state, incidental Encounter for screening for malformation using ultrasound ([facility]) Obesity affecting in first trimester, unspecified obesity type ([facility])- Primary Herpes simplex type 2 (HSV-2) infection affecting , antepartum, unspecified trimester ([facility]) Pre-existing type 2 diabetes mellitus in in first trimester ([facility]) Diabetes mellitus of mother, complicating , childbirth, or the puerperium, unspecified as to episode of care 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 Encounter for supervision of high risk in first trimester, antepartum ([facility]) 21 weeks gestation of ([facility]) state, incidental Pre-existing type 2 diabetes mellitus in in first trimester ([facility])- Primary Diabetes mellitus of mother, complicating , childbirth, or the puerperium, unspecified as to episode of care Obesity affecting in first trimester, unspecified obesity type ([facility]) History of pre-eclampsia Personal history of other genital system and obstetric disorders H/O macrosomia in infant in prior , currently ([facility]) with other poor obstetric history History of bipolar disorder Personal history of affective disorder 21 weeks gestation of ([facility]) state, incidental Encounter for anatomic survey ([facility]) Encounter for anatomic survey Supervision of high risk in third trimester ([facility])- Primary Unspecified high-risk History of pre-eclampsia Personal history of other genital system and obstetric disorders 29 weeks gestation of ([facility]) state, incidental Pre-existing type 2 diabetes mellitus in in third trimester ([facility]) Diabetes mellitus of mother, complicating , childbirth, or the puerperium, unspecified as to episode of care 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 Pre-existing type 2 diabetes mellitus in in first trimester ([facility]) Diabetes mellitus of mother, complicating , childbirth, or the puerperium, unspecified as to episode of care Tobacco smoking complicating in first trimester ([facility]) Tobacco use disorder complicating , childbirth, or the puerperium, antepartum condition or complication History of recurrent UTI (urinary tract infection) Personal history of urinary (tract) infection 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, 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, 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 long-term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 ([facility]) Herpes simplex type 2 (HSV-2) infection affecting , antepartum, unspecified trimester ([facility]) Supervision of high risk in third trimester ([facility])- Primary Unspecified high-risk Pre-existing type 2 diabetes mellitus in in third trimester ([facility]) Diabetes mellitus of mother, complicating , childbirth, or the puerperium, unspecified as to episode of care Herpes simplex type 2 (HSV-2) infection affecting , antepartum, unspecified trimester ([facility]) H/O macrosomia in infant in prior , currently ([facility]) with other poor obstetric history History of pre-eclampsia Personal history of other genital system and obstetric disorders 31 weeks gestation of ([facility]) state, incidental Supervision of high risk in third trimester ([facility])- Primary Unspecified high-risk Pre-existing type 2 diabetes mellitus in in third trimester ([facility]) Diabetes mellitus of mother, complicating , childbirth, or the puerperium, unspecified as to episode of care Exposure to parvovirus Contact with or exposure to other viral diseases History of pre-eclampsia Personal history of other genital system and obstetric disorders Pre-existing type 2 diabetes mellitus in in third trimester ([facility])- Primary Diabetes mellitus of mother, complicating , childbirth, or the puerperium, unspecified as to episode of care History of pre-eclampsia Personal history of other genital system and obstetric disorders H/O macrosomia in in prior , currently ([facility]) with other poor obstetric history 33 weeks gestation of ([facility]) state, incidental Request for sterilization Herpes simplex type 2 (HSV-2) infection affecting , antepartum, unspecified trimester ([facility]) 33 weeks gestation of ([facility])- Primary state, incidental complication before ([facility]) Other specified complication, antepartum Pre-existing type 2 diabetes mellitus in in third trimester ([facility]) Diabetes mellitus of mother, complicating , childbirth, or the puerperium, unspecified as to episode of care Supervision of high risk in third trimester ([facility]) Unspecified high-risk pruritus, third trimester ([facility]) documented in this encounter [facility] note* Diagnosis Pre-existing type 2 diabetes mellitus in in first trimester ([facility])- Primary Diabetes mellitus of mother, complicating , childbirth, or the puerperium, unspecified as to episode of care History of pre-eclampsia Personal history of other genital system and obstetric disorders H/O macrosomia in in prior , currently ([facility]) with other poor obstetric history 17 weeks gestation of ([facility]) state, incidental Encounter for screening for malformation using ultrasound ([facility]) Obesity affecting in first trimester, unspecified obesity type ([facility])- Primary Herpes simplex type 2 (HSV-2) infection affecting , antepartum, unspecified trimester ([facility]) Pre-existing type 2 diabetes mellitus in in first trimester ([facility]) Diabetes mellitus of mother, complicating , childbirth, or the puerperium, unspecified as to episode of care 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 Encounter for supervision of high risk in first trimester, antepartum ([facility]) 21 weeks gestation of ([facility]) state, incidental Pre-existing type 2 diabetes mellitus in in first trimester ([facility])- Primary Diabetes mellitus of mother, complicating , childbirth, or the puerperium, unspecified as to episode of care Obesity affecting in first trimester, unspecified obesity type ([facility]) History of pre-eclampsia Personal history of other genital system and obstetric disorders H/O macrosomia in in prior , currently ([facility]) with other poor obstetric history History of bipolar disorder Personal history of affective disorder 21 weeks gestation of ([facility]) state, incidental Encounter for anatomic survey ([facility]) Encounter for anatomic survey Supervision of high risk in third trimester ([facility])- Primary Unspecified high-risk History of pre-eclampsia Personal history of other genital system and obstetric disorders 29 weeks gestation of ([facility]) state, incidental Pre-existing type 2 diabetes mellitus in in third trimester ([facility]) Diabetes mellitus of mother, complicating , childbirth, or the puerperium, unspecified as to episode of care 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 Pre-existing type 2 diabetes mellitus in in first trimester ([facility]) Diabetes mellitus of mother, complicating , childbirth, or the puerperium, unspecified as to episode of care Tobacco smoking complicating in first trimester ([facility]) Tobacco use disorder complicating , childbirth, or the puerperium, antepartum condition or complication History of recurrent UTI (urinary tract infection) Personal history of urinary (tract) infection 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, 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, 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 ([facility]) Herpes simplex type 2 (HSV-2) infection affecting , antepartum, unspecified trimester ([facility]) Supervision of high risk in third trimester ([facility])- Primary Unspecified high-risk Pre-existing type 2 diabetes mellitus in in third trimester ([facility]) Diabetes mellitus of mother, complicating , childbirth, or the puerperium, unspecified as to episode of care Herpes simplex type 2 (HSV-2) infection affecting , antepartum, unspecified trimester ([facility]) H/O macrosomia in in prior , currently ([facility]) with other poor obstetric history History of pre-eclampsia Personal history of other genital system and obstetric disorders 31 weeks gestation of ([facility]) state, incidental Supervision of high risk in third trimester ([facility])- Primary Unspecified high-risk Pre-existing type 2 diabetes mellitus in in third trimester ([facility]) Diabetes mellitus of mother, complicating , childbirth, or the puerperium, unspecified as to episode of care Exposure to parvovirus Contact with or exposure to other viral diseases History of pre-eclampsia Personal history of other genital system and obstetric disorders Pre-existing type 2 diabetes mellitus in in third trimester ([facility])- Primary Diabetes mellitus of mother, complicating , childbirth, or the puerperium, unspecified as to episode of care History of pre-eclampsia Personal history of other genital system and obstetric disorders H/O macrosomia in infant in prior , currently ([facility]) with other poor obstetric history 33 weeks gestation of ([facility]) state, incidental Request for sterilization Herpes simplex type 2 (HSV-2) infection affecting , antepartum, unspecified trimester ([facility]) Pre-existing type 2 diabetes mellitus in in first trimester ([facility])- Primary Diabetes mellitus of mother, complicating , childbirth, or the puerperium, unspecified as to episode of care 34 weeks gestation of ([facility]) state, incidental documented in this encounter [facility] note* Diagnosis Pre-existing type 2 diabetes mellitus in in first trimester ([facility])- Primary Diabetes mellitus of mother, complicating , childbirth, or the puerperium, unspecified as to episode of care History of pre-eclampsia Personal history of other genital system and obstetric disorders H/O macrosomia in in prior , currently ([facility]) with other poor obstetric history 17 weeks gestation of ([facility]) state, incidental Encounter for screening for malformation using ultrasound ([facility]) Obesity affecting in first trimester, unspecified obesity type ([facility])- Primary Herpes simplex type 2 (HSV-2) infection affecting , antepartum, unspecified trimester ([facility]) Pre-existing type 2 diabetes mellitus in in first trimester ([facility]) Diabetes mellitus of mother, complicating , childbirth, or the puerperium, unspecified as to episode of care 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 Encounter for supervision of high risk in first trimester, antepartum ([facility]) 21 weeks gestation of ([facility]) state, incidental Pre-existing type 2 diabetes mellitus in in first trimester ([facility])- Primary Diabetes mellitus of mother, complicating , childbirth, or the puerperium, unspecified as to episode of care Obesity affecting in first trimester, unspecified obesity type ([facility]) History of pre-eclampsia Personal history of other genital system and obstetric disorders H/O macrosomia in in prior , currently ([facility]) with other poor obstetric history History of bipolar disorder Personal history of affective disorder 21 weeks gestation of ([facility]) state, incidental Encounter for anatomic survey ([facility]) Encounter for anatomic survey Supervision of high risk in third trimester ([facility] Primary Unspecified high-risk History of pre-eclampsia Personal history of other genital system and obstetric disorders 29 weeks gestation of ([facility]) state, incidental Pre-existing type 2 diabetes mellitus in in third trimester ([facility]) Diabetes mellitus of mother, complicating , childbirth, or the puerperium, unspecified as to episode of care 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 Pre-existing type 2 diabetes mellitus in in first trimester ([facility]) Diabetes mellitus of mother, complicating , childbirth, or the puerperium, unspecified as to episode of care Tobacco smoking complicating in first trimester ([facility]) Tobacco use disorder complicating , childbirth, or the puerperium, antepartum condition or complication History of recurrent UTI (urinary tract infection) Personal history of urinary (tract) infection 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, 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, 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 long-term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 ([facility]) Herpes simplex type 2 (HSV-2) infection affecting , antepartum, unspecified trimester ([facility]) Supervision of high risk in third trimester ([facility])- Primary Unspecified high-risk Pre-existing type 2 diabetes mellitus in in third trimester ([facility]) Diabetes mellitus of mother, complicating , childbirth, or the puerperium, unspecified as to episode of care Herpes simplex type 2 (HSV-2) infection affecting , antepartum, unspecified trimester ([facility]) H/O macrosomia in infant in prior , currently ([facility]) with other poor obstetric history History of pre-eclampsia Personal history of other genital system and obstetric disorders 31 weeks gestation of ([facility]) state, incidental Supervision of high risk in third trimester ([facility])- Primary Unspecified high-risk Pre-existing type 2 diabetes mellitus in in third trimester ([facility]) Diabetes mellitus of mother, complicating , childbirth, or the puerperium, unspecified as to episode of care Exposure to parvovirus Contact with or exposure to other viral diseases History of pre-eclampsia Personal history of other genital system and obstetric disorders Pre-existing type 2 diabetes mellitus in in third trimester ([facility])- Primary Diabetes mellitus of mother, complicating , childbirth, or the puerperium, unspecified as to episode of care History of pre-eclampsia Personal history of other genital system and obstetric disorders H/O macrosomia in in prior , currently ([facility]) with other poor obstetric history 33 weeks gestation of ([facility]) state, incidental Request for sterilization Herpes simplex type 2 (HSV-2) infection affecting , antepartum, unspecified trimester ([facility]) Pre-existing type 2 diabetes mellitus in in third trimester ([facility])- Primary Diabetes mellitus of mother, complicating , childbirth, or the puerperium, unspecified as to episode of care pruritus, third trimester ([facility]) History of pre-eclampsia Personal history of other genital system and obstetric disorders H/O macrosomia in infant in prior , currently ([facility]) with other poor obstetric history 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 complication before ([facility]) Other specified complication, antepartum 34 weeks gestation of ([facility]) state, incidental documented in this encounter [facility] note* Diagnosis Pre-existing type 2 diabetes mellitus in in first trimester ([facility])- Primary Diabetes mellitus of mother, complicating , childbirth, or the puerperium, unspecified as to episode of care History of pre-eclampsia Personal history of other genital system and obstetric disorders H/O macrosomia in infant in prior , currently ([facility]) with other poor obstetric history 17 weeks gestation of ([facility]) state, incidental Encounter for screening for malformation using ultrasound ([facility]) Obesity affecting in first trimester, unspecified obesity type ([facility])- Primary Herpes simplex type 2 (HSV-2) infection affecting , antepartum, unspecified trimester ([facility]) Pre-existing type 2 diabetes mellitus in in first trimester ([facility]) Diabetes mellitus of mother, complicating , childbirth, or the puerperium, unspecified as to episode of care 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 Encounter for supervision of high risk in first trimester, antepartum ([facility]) 21 weeks gestation of ([facility]) state, incidental Pre-existing type 2 diabetes mellitus in in first trimester ([facility])- Primary Diabetes mellitus of mother, complicating , childbirth, or the puerperium, unspecified as to episode of care Obesity affecting in first trimester, unspecified obesity type ([facility]) History of pre-eclampsia Personal history of other genital system and obstetric disorders H/O macrosomia in infant in prior , currently ([facility]) with other poor obstetric history History of bipolar disorder Personal history of affective disorder 21 weeks gestation of ([facility]) state, incidental Encounter for anatomic survey ([facility]) Encounter for anatomic survey Supervision of high risk in third trimester ([facility])- Primary Unspecified high-risk History of pre-eclampsia Personal history of other genital system and obstetric disorders 29 weeks gestation of ([facility]) state, incidental Pre-existing type 2 diabetes mellitus in in third trimester ([facility]) Diabetes mellitus of mother, complicating , childbirth, or the puerperium, unspecified as to episode of care 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 Pre-existing type 2 diabetes mellitus in in first trimester ([facility]) Diabetes mellitus of mother, complicating , childbirth, or the puerperium, unspecified as to episode of care Tobacco smoking complicating in first trimester ([facility]) Tobacco use disorder complicating , childbirth, or the puerperium, antepartum condition or complication History of recurrent UTI (urinary tract infection) Personal history of urinary (tract) infection 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, 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, 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 long-term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 ([facility]) Herpes simplex type 2 (HSV-2) infection affecting , antepartum, unspecified trimester ([facility]) Supervision of high risk in third trimester ([facility])- Primary Unspecified high-risk Pre-existing type 2 diabetes mellitus in in third trimester ([facility]) Diabetes mellitus of mother, complicating , childbirth, or the puerperium, unspecified as to episode of care Herpes simplex type 2 (HSV-2) infection affecting , antepartum, unspecified trimester ([facility]) H/O macrosomia in infant in prior , currently ([facility]) with other poor obstetric history History of pre-eclampsia Personal history of other genital system and obstetric disorders 31 weeks gestation of ([facility]) state, incidental Supervision of high risk in third trimester ([facility])- Primary Unspecified high-risk Pre-existing type 2 diabetes mellitus in in third trimester ([facility]) Diabetes mellitus of mother, complicating , childbirth, or the puerperium, unspecified as to episode of care Exposure to parvovirus Contact with or exposure to other viral diseases History of pre-eclampsia Personal history of other genital system and obstetric disorders Pre-existing type 2 diabetes mellitus in in third trimester ([facility])- Primary Diabetes mellitus of mother, complicating , childbirth, or the puerperium, unspecified as to episode of care History of pre-eclampsia Personal history of other genital system and obstetric disorders H/O macrosomia in in prior , currently ([facility]) with other poor obstetric history 33 weeks gestation of ([facility]) state, incidental Request for sterilization Herpes simplex type 2 (HSV-2) infection affecting , antepartum, unspecified trimester ([facility]) Pre-existing type 2 diabetes mellitus in in third trimester ([facility])- Primary Diabetes mellitus of mother, complicating , childbirth, or the puerperium, unspecified as to episode of care 35 weeks gestation of ([facility]) state, incidental Supervision of high risk in third trimester ([facility]) Unspecified high-risk documented in this encounter [facility] note* Diagnosis Pre-existing type 2 diabetes mellitus in in first trimester ([facility])- Primary Diabetes mellitus of mother, complicating , childbirth, or the puerperium, unspecified as to episode of care History of pre-eclampsia Personal history of other genital system and obstetric disorders H/O macrosomia in in prior , currently ([facility]) with other poor obstetric history 17 weeks gestation of ([facility]) state, incidental Encounter for screening for malformation using ultrasound ([facility]) Obesity affecting in first trimester, unspecified obesity type ([facility])- Primary Herpes simplex type 2 (HSV-2) infection affecting , antepartum, unspecified trimester ([facility]) Pre-existing type 2 diabetes mellitus in in first trimester ([facility]) Diabetes mellitus of mother, complicating , childbirth, or the puerperium, unspecified as to episode of care 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 Encounter for supervision of high risk in first trimester, antepartum ([facility]) 21 weeks gestation of ([facility]) state, incidental Pre-existing type 2 diabetes mellitus in in first trimester ([facility])- Primary Diabetes mellitus of mother, complicating , childbirth, or the puerperium, unspecified as to episode of care Obesity affecting in first trimester, unspecified obesity type ([facility]) History of pre-eclampsia Personal history of other genital system and obstetric disorders H/O macrosomia in in prior , currently ([facility]) with other poor obstetric history History of bipolar disorder Personal history of affective disorder 21 weeks gestation of ([facility]) state, incidental Encounter for anatomic survey ([facility]) Encounter for anatomic survey Supervision of high risk in third trimester ([facility])- Primary Unspecified high-risk History of pre-eclampsia Personal history of other genital system and obstetric disorders 29 weeks gestation of ([facility]) state, incidental Pre-existing type 2 diabetes mellitus in in third trimester ([facility]) Diabetes mellitus of mother, complicating , childbirth, or the puerperium, unspecified as to episode of care 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 Pre-existing type 2 diabetes mellitus in in first trimester ([facility]) Diabetes mellitus of mother, complicating , childbirth, or the puerperium, unspecified as to episode of care Tobacco smoking complicating in first trimester ([facility]) Tobacco use disorder complicating , childbirth, or the puerperium, antepartum condition or complication History of recurrent UTI (urinary tract infection) Personal history of urinary (tract) infection 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, 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, 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 ([facility]) Herpes simplex type 2 (HSV-2) infection affecting , antepartum, unspecified trimester ([facility]) Supervision of high risk in third trimester ([facility])- Primary Unspecified high-risk Pre-existing type 2 diabetes mellitus in in third trimester ([facility]) Diabetes mellitus of mother, complicating , childbirth, or the puerperium, unspecified as to episode of care Herpes simplex type 2 (HSV-2) infection affecting , antepartum, unspecified trimester ([facility]) H/O macrosomia in infant in prior , currently ([facility]) with other poor obstetric history History of pre-eclampsia Personal history of other genital system and obstetric disorders 31 weeks gestation of ([facility]) state, incidental Supervision of high risk in third trimester ([facility])- Primary Unspecified high-risk Pre-existing type 2 diabetes mellitus in in third trimester ([facility]) Diabetes mellitus of mother, complicating , childbirth, or the puerperium, unspecified as to episode of care Exposure to parvovirus Contact with or exposure to other viral diseases History of pre-eclampsia Personal history of other genital system and obstetric disorders Pre-existing type 2 diabetes mellitus in in third trimester ([facility])- Primary Diabetes mellitus of mother, complicating , childbirth, or the puerperium, unspecified as to episode of care History of pre-eclampsia Personal history of other genital system and obstetric disorders H/O macrosomia in in prior , currently ([facility]) with other poor obstetric history 33 weeks gestation of ([facility]) state, incidental Request for sterilization Herpes simplex type 2 (HSV-2) infection affecting , antepartum, unspecified trimester ([facility]) Pre-existing type 2 diabetes mellitus in in first trimester ([facility])- Primary Diabetes mellitus of mother, complicating , childbirth, or the puerperium, unspecified as to episode of care 35 weeks gestation of ([facility]) state, incidental documented in this encounter [facility] note* Diagnosis Pre-existing type 2 diabetes mellitus in in first trimester ([facility])- Primary Diabetes mellitus of mother, complicating , childbirth, or the puerperium, unspecified as to episode of care History of pre-eclampsia Personal history of other genital system and obstetric disorders H/O macrosomia in infant in prior , currently ([facility]) with other poor obstetric history 17 weeks gestation of ([facility]) state, incidental Encounter for screening for malformation using ultrasound ([facility]) Obesity affecting in first trimester, unspecified obesity type ([facility])- Primary Herpes simplex type 2 (HSV-2) infection affecting , antepartum, unspecified trimester ([facility]) Pre-existing type 2 diabetes mellitus in in first trimester ([facility]) Diabetes mellitus of mother, complicating , childbirth, or the puerperium, unspecified as to episode of care 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 Encounter for supervision of high risk in first trimester, antepartum ([facility]) 21 weeks gestation of ([facility]) state, incidental Pre-existing type 2 diabetes mellitus in in first trimester ([facility])- Primary Diabetes mellitus of mother, complicating , childbirth, or the puerperium, unspecified as to episode of care Obesity affecting in first trimester, unspecified obesity type ([facility]) History of pre-eclampsia Personal history of other genital system and obstetric disorders H/O macrosomia in infant in prior , currently ([facility]) with other poor obstetric history History of bipolar disorder Personal history of affective disorder 21 weeks gestation of ([facility]) state, incidental Encounter for anatomic survey ([facility]) Encounter for anatomic survey Supervision of high risk in third trimester ([facility])- Primary Unspecified high-risk History of pre-eclampsia Personal history of other genital system and obstetric disorders 29 weeks gestation of ([facility]) state, incidental Pre-existing type 2 diabetes mellitus in in third trimester ([facility]) Diabetes mellitus of mother, complicating , childbirth, or the puerperium, unspecified as to episode of care 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 Pre-existing type 2 diabetes mellitus in in first trimester ([facility]) Diabetes mellitus of mother, complicating , childbirth, or the puerperium, unspecified as to episode of care Tobacco smoking complicating in first trimester ([facility]) Tobacco use disorder complicating , childbirth, or the puerperium, antepartum condition or complication History of recurrent UTI (urinary tract infection) Personal history of urinary (tract) infection 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, 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, 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 long-term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 ([facility]) Herpes simplex type 2 (HSV-2) infection affecting , antepartum, unspecified trimester ([facility]) Supervision of high risk in third trimester ([facility])- Primary Unspecified high-risk Pre-existing type 2 diabetes mellitus in in third trimester ([facility]) Diabetes mellitus of mother, complicating , childbirth, or the puerperium, unspecified as to episode of care Herpes simplex type 2 (HSV-2) infection affecting , antepartum, unspecified trimester ([facility]) H/O macrosomia in in prior , currently ([facility]) with other poor obstetric history History of pre-eclampsia Personal history of other genital system and obstetric disorders 31 weeks gestation of ([facility]) state, incidental Supervision of high risk in third trimester ([facility])- Primary Unspecified high-risk Pre-existing type 2 diabetes mellitus in in third trimester ([facility]) Diabetes mellitus of mother, complicating , childbirth, or the puerperium, unspecified as to episode of care Exposure to parvovirus Contact with or exposure to other viral diseases History of pre-eclampsia Personal history of other genital system and obstetric disorders Pre-existing type 2 diabetes mellitus in in third trimester ([facility])- Primary Diabetes mellitus of mother, complicating , childbirth, or the puerperium, unspecified as to episode of care History of pre-eclampsia Personal history of other genital system and obstetric disorders H/O macrosomia in in prior , currently ([facility]) with other poor obstetric history 33 weeks gestation of ([facility]) state, incidental Request for sterilization Herpes simplex type 2 (HSV-2) infection affecting , antepartum, unspecified trimester ([facility]) Pre-existing type 2 diabetes mellitus in in third trimester ([facility])- Primary Diabetes mellitus of mother, complicating , childbirth, or the puerperium, unspecified as to episode of care 35 weeks gestation of ([facility]) state, incidental Vaginal itching Pruritus of genital organs documented in this encounter [facility] note* Diagnosis Pre-existing type 2 diabetes mellitus in in first trimester ([facility])- Primary Diabetes mellitus of mother, complicating , childbirth, or the puerperium, unspecified as to episode of care History of pre-eclampsia Personal history of other genital system and obstetric disorders H/O macrosomia in in prior , currently ([facility]) with other poor obstetric history 17 weeks gestation of ([facility]) state, incidental Encounter for screening for malformation using ultrasound ([facility]) Obesity affecting in first trimester, unspecified obesity type ([facility])- Primary Herpes simplex type 2 (HSV-2) infection affecting , antepartum, unspecified trimester ([facility]) Pre-existing type 2 diabetes mellitus in in first trimester ([facility]) Diabetes mellitus of mother, complicating , childbirth, or the puerperium, unspecified as to episode of care 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 Encounter for supervision of high risk in first trimester, antepartum ([facility]) 21 weeks gestation of ([facility]) state, incidental Pre-existing type 2 diabetes mellitus in in first trimester ([facility])- Primary Diabetes mellitus of mother, complicating , childbirth, or the puerperium, unspecified as to episode of care Obesity affecting in first trimester, unspecified obesity type ([facility]) History of pre-eclampsia Personal history of other genital system and obstetric disorders H/O macrosomia in infant in prior , currently ([facility]) with other poor obstetric history History of bipolar disorder Personal history of affective disorder 21 weeks gestation of ([facility]) state, incidental Encounter for anatomic survey ([facility]) Encounter for anatomic survey Supervision of high risk in third trimester ([facility])- Primary Unspecified high-risk History of pre-eclampsia Personal history of other genital system and obstetric disorders 29 weeks gestation of ([facility]) state, incidental Pre-existing type 2 diabetes mellitus in in third trimester ([facility]) Diabetes mellitus of mother, complicating , childbirth, or the puerperium, unspecified as to episode of care 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 Pre-existing type 2 diabetes mellitus in in first trimester ([facility]) Diabetes mellitus of mother, complicating , childbirth, or the puerperium, unspecified as to episode of care Tobacco smoking complicating in first trimester ([facility]) Tobacco use disorder complicating , childbirth, or the puerperium, antepartum condition or complication History of recurrent UTI (urinary tract infection) Personal history of urinary (tract) infection 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, 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, 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 long-term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 ([facility]) Herpes simplex type 2 (HSV-2) infection affecting , antepartum, unspecified trimester ([facility]) Supervision of high risk in third trimester ([facility])- Primary Unspecified high-risk Pre-existing type 2 diabetes mellitus in in third trimester ([facility]) Diabetes mellitus of mother, complicating , childbirth, or the puerperium, unspecified as to episode of care Herpes simplex type 2 (HSV-2) infection affecting , antepartum, unspecified trimester ([facility]) H/O macrosomia in in prior , currently ([facility]) with other poor obstetric history History of pre-eclampsia Personal history of other genital system and obstetric disorders 31 weeks gestation of ([facility]) state, incidental Supervision of high risk in third trimester ([facility])- Primary Unspecified high-risk Pre-existing type 2 diabetes mellitus in in third trimester ([facility]) Diabetes mellitus of mother, complicating , childbirth, or the puerperium, unspecified as to episode of care Exposure to parvovirus Contact with or exposure to other viral diseases History of pre-eclampsia Personal history of other genital system and obstetric disorders Pre-existing type 2 diabetes mellitus in in third trimester ([facility])- Primary Diabetes mellitus of mother, complicating , childbirth, or the puerperium, unspecified as to episode of care History of pre-eclampsia Personal history of other genital system and obstetric disorders H/O macrosomia in infant in prior , currently ([facility]) with other poor obstetric history 33 weeks gestation of ([facility]) state, incidental Request for sterilization Herpes simplex type 2 (HSV-2) infection affecting , antepartum, unspecified trimester ([facility]) Obesity affecting in first trimester, unspecified obesity type ([facility])- Primary Pre-existing type 2 diabetes mellitus in in first trimester ([facility]) Diabetes mellitus of mother, complicating , childbirth, or the puerperium, unspecified as to episode of care documented in this encounter [facility] note* Diagnosis Pre-existing type 2 diabetes mellitus in in first trimester ([facility])- Primary Diabetes mellitus of mother, complicating , childbirth, or the puerperium, unspecified as to episode of care History of pre-eclampsia Personal history of other genital system and obstetric disorders H/O macrosomia in in prior , currently ([facility]) with other poor obstetric history 17 weeks gestation of ([facility]) state, incidental Encounter for screening for malformation using ultrasound ([facility]) Obesity affecting in first trimester, unspecified obesity type ([facility])- Primary Herpes simplex type 2 (HSV-2) infection affecting , antepartum, unspecified trimester ([facility]) Pre-existing type 2 diabetes mellitus in in first trimester ([facility]) Diabetes mellitus of mother, complicating , childbirth, or the puerperium, unspecified as to episode of care 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 Encounter for supervision of high risk in first trimester, antepartum ([facility]) 21 weeks gestation of ([facility]) state, incidental Pre-existing type 2 diabetes mellitus in in first trimester ([facility])- Primary Diabetes mellitus of mother, complicating , childbirth, or the puerperium, unspecified as to episode of care Obesity affecting in first trimester, unspecified obesity type ([facility]) History of pre-eclampsia Personal history of other genital system and obstetric disorders H/O macrosomia in infant in prior , currently ([facility]) with other poor obstetric history History of bipolar disorder Personal history of affective disorder 21 weeks gestation of ([facility]) state, incidental Encounter for anatomic survey ([facility]) Encounter for anatomic survey Supervision of high risk in third trimester ([facility])- Primary Unspecified high-risk History of pre-eclampsia Personal history of other genital system and obstetric disorders 29 weeks gestation of ([facility]) state, incidental Pre-existing type 2 diabetes mellitus in in third trimester ([facility]) Diabetes mellitus of mother, complicating , childbirth, or the puerperium, unspecified as to episode of care 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 Pre-existing type 2 diabetes mellitus in in first trimester ([facility]) Diabetes mellitus of mother, complicating , childbirth, or the puerperium, unspecified as to episode of care Tobacco smoking complicating in first trimester ([facility]) Tobacco use disorder complicating , childbirth, or the puerperium, antepartum condition or complication History of recurrent UTI (urinary tract infection) Personal history of urinary (tract) infection 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, 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, 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 long-term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 ([facility]) Herpes simplex type 2 (HSV-2) infection affecting , antepartum, unspecified trimester ([facility]) Supervision of high risk in third trimester ([facility])- Primary Unspecified high-risk Pre-existing type 2 diabetes mellitus in in third trimester ([facility]) Diabetes mellitus of mother, complicating , childbirth, or the puerperium, unspecified as to episode of care Herpes simplex type 2 (HSV-2) infection affecting , antepartum, unspecified trimester ([facility]) H/O macrosomia in in prior , currently ([facility]) with other poor obstetric history History of pre-eclampsia Personal history of other genital system and obstetric disorders 31 weeks gestation of ([facility]) state, incidental Supervision of high risk in third trimester ([facility])- Primary Unspecified high-risk Pre-existing type 2 diabetes mellitus in in third trimester ([facility]) Diabetes mellitus of mother, complicating , childbirth, or the puerperium, unspecified as to episode of care Exposure to parvovirus Contact with or exposure to other viral diseases History of pre-eclampsia Personal history of other genital system and obstetric disorders Pre-existing type 2 diabetes mellitus in in third trimester ([facility])- Primary Diabetes mellitus of mother, complicating , childbirth, or the puerperium, unspecified as to episode of care History of pre-eclampsia Personal history of other genital system and obstetric disorders H/O macrosomia in infant in prior , currently ([facility]) with other poor obstetric history 33 weeks gestation of ([facility]) state, incidental Request for sterilization Herpes simplex type 2 (HSV-2) infection affecting , antepartum, unspecified trimester ([facility]) History of herpes genitalis- Primary Personal history of other infectious and parasitic disease Pre-existing type 2 diabetes mellitus in in third trimester ([facility]) Diabetes mellitus of mother, complicating , childbirth, or the puerperium, unspecified as to episode of care History of pre-eclampsia Personal history of other genital system and obstetric disorders 36 weeks gestation of ([facility]) state, incidental * Assessment & Plan Note - William Gramajo MD - 11/25/2024 10:24 AM EDTAssociated Problem(s): History of pre-eclampsia Orders: URINE OB DIP B/O [facility] Diagnosis Pre-existing type 2 diabetes mellitus in in first trimester ([facility])- Primary Diabetes mellitus of mother, complicating , childbirth, or the puerperium, unspecified as to episode of care History of pre-eclampsia Personal history of other genital system and obstetric disorders H/O macrosomia in in prior , currently ([facility]) with other poor obstetric history 17 weeks gestation of ([facility]) state, incidental Encounter for screening for malformation using ultrasound ([facility]) Obesity affecting in first trimester, unspecified obesity type ([facility])- Primary Herpes simplex type 2 (HSV-2) infection affecting , antepartum, unspecified trimester ([facility]) Pre-existing type 2 diabetes mellitus in in first trimester ([facility]) Diabetes mellitus of mother, complicating , childbirth, or the puerperium, unspecified as to episode of care 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 Encounter for supervision of high risk in first trimester, antepartum ([facility]) 21 weeks gestation of ([facility]) state, incidental Pre-existing type 2 diabetes mellitus in in first trimester ([facility])- Primary Diabetes mellitus of mother, complicating , childbirth, or the puerperium, unspecified as to episode of care Obesity affecting in first trimester, unspecified obesity type ([facility]) History of pre-eclampsia Personal history of other genital system and obstetric disorders H/O macrosomia in infant in prior , currently ([facility]) with other poor obstetric history History of bipolar disorder Personal history of affective disorder 21 weeks gestation of ([facility]) state, incidental Encounter for anatomic survey ([facility]) Encounter for anatomic survey Supervision of high risk in third trimester ([facility])- Primary Unspecified high-risk History of pre-eclampsia Personal history of other genital system and obstetric disorders 29 weeks gestation of ([facility]) state, incidental Pre-existing type 2 diabetes mellitus in in third trimester ([facility]) Diabetes mellitus of mother, complicating , childbirth, or the puerperium, unspecified as to episode of care 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 Pre-existing type 2 diabetes mellitus in in first trimester ([facility]) Diabetes mellitus of mother, complicating , childbirth, or the puerperium, unspecified as to episode of care Tobacco smoking complicating in first trimester ([facility]) Tobacco use disorder complicating , childbirth, or the puerperium, antepartum condition or complication History of recurrent UTI (urinary tract infection) Personal history of urinary (tract) infection 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, 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, 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 ([facility]) Herpes simplex type 2 (HSV-2) infection affecting , antepartum, unspecified trimester ([facility]) Supervision of high risk in third trimester ([facility])- Primary Unspecified high-risk Pre-existing type 2 diabetes mellitus in in third trimester ([facility]) Diabetes mellitus of mother, complicating , childbirth, or the puerperium, unspecified as to episode of care Herpes simplex type 2 (HSV-2) infection affecting , antepartum, unspecified trimester ([facility]) H/O macrosomia in in prior , currently ([facility]) with other poor obstetric history History of pre-eclampsia Personal history of other genital system and obstetric disorders 31 weeks gestation of ([facility]) state, incidental Supervision of high risk in third trimester ([facility])- Primary Unspecified high-risk Pre-existing type 2 diabetes mellitus in in third trimester ([facility]) Diabetes mellitus of mother, complicating , childbirth, or the puerperium, unspecified as to episode of care Exposure to parvovirus Contact with or exposure to other viral diseases History of pre-eclampsia Personal history of other genital system and obstetric disorders Pre-existing type 2 diabetes mellitus in in third trimester ([facility])- Primary Diabetes mellitus of mother, complicating , childbirth, or the puerperium, unspecified as to episode of care History of pre-eclampsia Personal history of other genital system and obstetric disorders H/O macrosomia in infant in prior , currently ([facility]) with other poor obstetric history 33 weeks gestation of ([facility]) state, incidental Request for sterilization Herpes simplex type 2 (HSV-2) infection affecting , antepartum, unspecified trimester ([facility]) History of herpes genitalis- Primary Personal history of other infectious and parasitic disease Pre-existing type 2 diabetes mellitus in in third trimester ([facility]) Diabetes mellitus of mother, complicating , childbirth, or the puerperium, unspecified as to episode of care History of pre-eclampsia Personal history of other genital system and obstetric disorders 36 weeks gestation of ([facility]) state, incidental Pre-existing type 2 diabetes mellitus in in third trimester ([facility])- Primary Diabetes mellitus of mother, complicating , childbirth, or the puerperium, unspecified as to episode of care Pre-existing type 2 diabetes mellitus in in first trimester ([facility]) Diabetes mellitus of mother, complicating , childbirth, or the puerperium, unspecified as to episode of care documented in this encounter [facility] note* Diagnosis Pre-existing type 2 diabetes mellitus in in first trimester ([facility])- Primary Diabetes mellitus of mother, complicating , childbirth, or the puerperium, unspecified as to episode of care History of pre-eclampsia Personal history of other genital system and obstetric disorders H/O macrosomia in infant in prior , currently ([facility]) with other poor obstetric history 17 weeks gestation of ([facility]) state, incidental Encounter for screening for malformation using ultrasound ([facility]) Obesity affecting in first trimester, unspecified obesity type ([facility])- Primary Herpes simplex type 2 (HSV-2) infection affecting , antepartum, unspecified trimester ([facility]) Pre-existing type 2 diabetes mellitus in in first trimester ([facility]) Diabetes mellitus of mother, complicating , childbirth, or the puerperium, unspecified as to episode of care 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 Encounter for supervision of high risk in first trimester, antepartum ([facility]) 21 weeks gestation of ([facility]) state, incidental Pre-existing type 2 diabetes mellitus in in first trimester ([facility])- Primary Diabetes mellitus of mother, complicating , childbirth, or the puerperium, unspecified as to episode of care Obesity affecting in first trimester, unspecified obesity type ([facility]) History of pre-eclampsia Personal history of other genital system and obstetric disorders H/O macrosomia in in prior , currently ([facility]) with other poor obstetric history History of bipolar disorder Personal history of affective disorder 21 weeks gestation of ([facility]) state, incidental Encounter for anatomic survey ([facility]) Encounter for anatomic survey Supervision of high risk in third trimester ([facility])- Primary Unspecified high-risk History of pre-eclampsia Personal history of other genital system and obstetric disorders 29 weeks gestation of ([facility]) state, incidental Pre-existing type 2 diabetes mellitus in in third trimester ([facility]) Diabetes mellitus of mother, complicating , childbirth, or the puerperium, unspecified as to episode of care 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 Pre-existing type 2 diabetes mellitus in in first trimester ([facility]) Diabetes mellitus of mother, complicating , childbirth, or the puerperium, unspecified as to episode of care Tobacco smoking complicating in first trimester ([facility]) Tobacco use disorder complicating , childbirth, or the puerperium, antepartum condition or complication History of recurrent UTI (urinary tract infection) Personal history of urinary (tract) infection 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, 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, 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 ([facility]) Herpes simplex type 2 (HSV-2) infection affecting , antepartum, unspecified trimester ([facility]) Supervision of high risk in third trimester ([facility])- Primary Unspecified high-risk Pre-existing type 2 diabetes mellitus in in third trimester ([facility]) Diabetes mellitus of mother, complicating , childbirth, or the puerperium, unspecified as to episode of care Herpes simplex type 2 (HSV-2) infection affecting , antepartum, unspecified trimester ([facility]) H/O macrosomia in in prior , currently ([facility]) with other poor obstetric history History of pre-eclampsia Personal history of other genital system and obstetric disorders 31 weeks gestation of ([facility]) state, incidental Supervision of high risk in third trimester ([facility])- Primary Unspecified high-risk Pre-existing type 2 diabetes mellitus in in third trimester ([facility]) Diabetes mellitus of mother, complicating , childbirth, or the puerperium, unspecified as to episode of care Exposure to parvovirus Contact with or exposure to other viral diseases History of pre-eclampsia Personal history of other genital system and obstetric disorders Pre-existing type 2 diabetes mellitus in in third trimester ([facility])- Primary Diabetes mellitus of mother, complicating , childbirth, or the puerperium, unspecified as to episode of care History of pre-eclampsia Personal history of other genital system and obstetric disorders H/O macrosomia in in prior , currently ([facility]) with other poor obstetric history 33 weeks gestation of ([facility]) state, incidental Request for sterilization Herpes simplex type 2 (HSV-2) infection affecting , antepartum, unspecified trimester ([facility]) History of herpes genitalis- Primary Personal history of other infectious and parasitic disease Pre-existing type 2 diabetes mellitus in in third trimester ([facility]) Diabetes mellitus of mother, complicating , childbirth, or the puerperium, unspecified as to episode of care History of pre-eclampsia Personal history of other genital system and obstetric disorders 36 weeks gestation of ([facility]) state, incidental Pre-existing type 2 diabetes mellitus in in third trimester ([facility])- Primary Diabetes mellitus of mother, complicating , childbirth, or the puerperium, unspecified as to episode of care 37 weeks gestation of ([facility]) state, incidental Supervision of high risk in third trimester ([facility]) Unspecified high-risk [facility] Diagnosis Pre-existing type 2 diabetes mellitus in in first trimester ([facility])- Primary Diabetes mellitus of mother, complicating , childbirth, or the puerperium, unspecified as to episode of care History of pre-eclampsia Personal history of other genital system and obstetric disorders H/O macrosomia in infant in prior , currently ([facility]) with other poor obstetric history 17 weeks gestation of ([facility]) state, incidental Encounter for screening for malformation using ultrasound ([facility]) Obesity affecting in first trimester, unspecified obesity type ([facility])- Primary Herpes simplex type 2 (HSV-2) infection affecting , antepartum, unspecified trimester ([facility]) Pre-existing type 2 diabetes mellitus in in first trimester ([facility]) Diabetes mellitus of mother, complicating , childbirth, or the puerperium, unspecified as to episode of care 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 Encounter for supervision of high risk in first trimester, antepartum ([facility]) 21 weeks gestation of ([facility]) state, incidental Pre-existing type 2 diabetes mellitus in in first trimester ([facility])- Primary Diabetes mellitus of mother, complicating , childbirth, or the puerperium, unspecified as to episode of care Obesity affecting in first trimester, unspecified obesity type ([facility]) History of pre-eclampsia Personal history of other genital system and obstetric disorders H/O macrosomia in in prior , currently ([facility]) with other poor obstetric history History of bipolar disorder Personal history of affective disorder 21 weeks gestation of ([facility]) state, incidental Encounter for anatomic survey ([facility]) Encounter for anatomic survey Supervision of high risk in third trimester ([facility])- Primary Unspecified high-risk History of pre-eclampsia Personal history of other genital system and obstetric disorders 29 weeks gestation of ([facility]) state, incidental Pre-existing type 2 diabetes mellitus in in third trimester ([facility]) Diabetes mellitus of mother, complicating , childbirth, or the puerperium, unspecified as to episode of care 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 Pre-existing type 2 diabetes mellitus in in first trimester ([facility]) Diabetes mellitus of mother, complicating , childbirth, or the puerperium, unspecified as to episode of care Tobacco smoking complicating in first trimester ([facility]) Tobacco use disorder complicating , childbirth, or the puerperium, antepartum condition or complication History of recurrent UTI (urinary tract infection) Personal history of urinary (tract) infection 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, 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, 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 ([facility]) Herpes simplex type 2 (HSV-2) infection affecting , antepartum, unspecified trimester ([facility]) Supervision of high risk in third trimester ([facility])- Primary Unspecified high-risk Pre-existing type 2 diabetes mellitus in in third trimester ([facility]) Diabetes mellitus of mother, complicating , childbirth, or the puerperium, unspecified as to episode of care Herpes simplex type 2 (HSV-2) infection affecting , antepartum, unspecified trimester ([facility]) H/O macrosomia in in prior , currently ([facility]) with other poor obstetric history History of pre-eclampsia Personal history of other genital system and obstetric disorders 31 weeks gestation of ([facility]) state, incidental Supervision of high risk in third trimester ([facility])- Primary Unspecified high-risk Pre-existing type 2 diabetes mellitus in in third trimester ([facility]) Diabetes mellitus of mother, complicating , childbirth, or the puerperium, unspecified as to episode of care Exposure to parvovirus Contact with or exposure to other viral diseases History of pre-eclampsia Personal history of other genital system and obstetric disorders Pre-existing type 2 diabetes mellitus in in third trimester ([facility])- Primary Diabetes mellitus of mother, complicating , childbirth, or the puerperium, unspecified as to episode of care History of pre-eclampsia Personal history of other genital system and obstetric disorders H/O macrosomia in in prior , currently ([facility]) with other poor obstetric history 33 weeks gestation of ([facility]) state, incidental Request for sterilization Herpes simplex type 2 (HSV-2) infection affecting , antepartum, unspecified trimester ([facility]) History of herpes genitalis- Primary Personal history of other infectious and parasitic disease Pre-existing type 2 diabetes mellitus in in third trimester ([facility]) Diabetes mellitus of mother, complicating , childbirth, or the puerperium, unspecified as to episode of care History of pre-eclampsia Personal history of other genital system and obstetric disorders 36 weeks gestation of ([facility]) state, incidental Pre-existing type 2 diabetes mellitus in in first trimester ([facility])- Primary Diabetes mellitus of mother, complicating , childbirth, or the puerperium, unspecified as to episode of care 38 weeks gestation of ([facility]) state, incidental [facility] Pre-existing type 2 diabetes mellitus in in first trimester ([facility])- Primary Diabetes mellitus of mother, complicating , childbirth, or the puerperium, unspecified as to episode of care History of pre-eclampsia Personal history of other genital system and obstetric disorders H/O macrosomia in in prior , currently ([facility]) with other poor obstetric history 17 weeks gestation of ([facility]) state, incidental Encounter for screening for malformation using ultrasound ([facility]) Obesity affecting in first trimester, unspecified obesity type ([facility])- Primary Herpes simplex type 2 (HSV-2) infection affecting , antepartum, unspecified trimester ([facility]) Pre-existing type 2 diabetes mellitus in in first trimester ([facility]) Diabetes mellitus of mother, complicating , childbirth, or the puerperium, unspecified as to episode of care 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 Encounter for supervision of high risk in first trimester, antepartum ([facility]) 21 weeks gestation of ([facility]) state, incidental Pre-existing type 2 diabetes mellitus in in first trimester ([facility])- Primary Diabetes mellitus of mother, complicating , childbirth, or the puerperium, unspecified as to episode of care Obesity affecting in first trimester, unspecified obesity type ([facility]) History of pre-eclampsia Personal history of other genital system and obstetric disorders H/O macrosomia in in prior , currently ([facility]) with other poor obstetric history History of bipolar disorder Personal history of affective disorder 21 weeks gestation of ([facility]) state, incidental Encounter for anatomic survey ([facility]) Encounter for anatomic survey Supervision of high risk in third trimester ([facility])- Primary Unspecified high-risk History of pre-eclampsia Personal history of other genital system and obstetric disorders 29 weeks gestation of ([facility]) state, incidental Pre-existing type 2 diabetes mellitus in in third trimester ([facility]) Diabetes mellitus of mother, complicating , childbirth, or the puerperium, unspecified as to episode of care 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 Pre-existing type 2 diabetes mellitus in in first trimester ([facility]) Diabetes mellitus of mother, complicating , childbirth, or the puerperium, unspecified as to episode of care Tobacco smoking complicating in first trimester ([facility]) Tobacco use disorder complicating , childbirth, or the puerperium, antepartum condition or complication History of recurrent UTI (urinary tract infection) Personal history of urinary (tract) infection 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, 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, 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 ([facility]) Herpes simplex type 2 (HSV-2) infection affecting , antepartum, unspecified trimester ([facility]) Supervision of high risk in third trimester ([facility])- Primary Unspecified high-risk Pre-existing type 2 diabetes mellitus in in third trimester ([facility]) Diabetes mellitus of mother, complicating , childbirth, or the puerperium, unspecified as to episode of care Herpes simplex type 2 (HSV-2) infection affecting , antepartum, unspecified trimester ([facility]) H/O macrosomia in in prior , currently ([facility]) with other poor obstetric history History of pre-eclampsia Personal history of other genital system and obstetric disorders 31 weeks gestation of ([facility]) state, incidental Supervision of high risk in third trimester ([facility])- Primary Unspecified high-risk Pre-existing type 2 diabetes mellitus in in third trimester ([facility]) Diabetes mellitus of mother, complicating , childbirth, or the puerperium, unspecified as to episode of care Exposure to parvovirus Contact with or exposure to other viral diseases History of pre-eclampsia Personal history of other genital system and obstetric disorders Pre-existing type 2 diabetes mellitus in in third trimester ([facility])- Primary Diabetes mellitus of mother, complicating , childbirth, or the puerperium, unspecified as to episode of care History of pre-eclampsia Personal history of other genital system and obstetric disorders H/O macrosomia in infant in prior , currently ([facility]) with other poor obstetric history 33 weeks gestation of ([facility]) state, incidental Request for sterilization Herpes simplex type 2 (HSV-2) infection affecting , antepartum, unspecified trimester ([facility]) History of herpes genitalis- Primary Personal history of other infectious and parasitic disease Pre-existing type 2 diabetes mellitus in in third trimester ([facility]) Diabetes mellitus of mother, complicating , childbirth, or the puerperium, unspecified as to episode of care History of pre-eclampsia Personal history of other genital system and obstetric disorders 36 weeks gestation of ([facility]) state, incidental Pre-existing type 2 diabetes mellitus in in third trimester ([facility])- Primary Diabetes mellitus of mother, complicating , childbirth, or the puerperium, unspecified as to episode of care Supervision of high risk in third trimester ([facility]) Unspecified high-risk History of pre-eclampsia Personal history of other genital system and obstetric disorders H/O macrosomia in infant in prior , currently ([facility]) with other poor obstetric history 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 38 weeks gestation of ([facility]) state, incidental documented in this encounter [facility] note* Diagnosis Pre-existing type 2 diabetes mellitus in in first trimester ([facility])- Primary Diabetes mellitus of mother, complicating , childbirth, or the puerperium, unspecified as to episode of care History of pre-eclampsia Personal history of other genital system and obstetric disorders H/O macrosomia in infant in prior , currently ([facility]) with other poor obstetric history 17 weeks gestation of ([facility]) state, incidental Encounter for screening for malformation using ultrasound ([facility]) Obesity affecting in first trimester, unspecified obesity type ([facility])- Primary Herpes simplex type 2 (HSV-2) infection affecting , antepartum, unspecified trimester ([facility]) Pre-existing type 2 diabetes mellitus in in first trimester ([facility]) Diabetes mellitus of mother, complicating , childbirth, or the puerperium, unspecified as to episode of care 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 Encounter for supervision of high risk in first trimester, antepartum ([facility]) 21 weeks gestation of ([facility]) state, incidental Pre-existing type 2 diabetes mellitus in in first trimester ([facility])- Primary Diabetes mellitus of mother, complicating , childbirth, or the puerperium, unspecified as to episode of care Obesity affecting in first trimester, unspecified obesity type ([facility]) History of pre-eclampsia Personal history of other genital system and obstetric disorders H/O macrosomia in infant in prior , currently ([facility]) with other poor obstetric history History of bipolar disorder Personal history of affective disorder 21 weeks gestation of ([facility]) state, incidental Encounter for anatomic survey ([facility]) Encounter for anatomic survey Supervision of high risk in third trimester ([facility])- Primary Unspecified high-risk History of pre-eclampsia Personal history of other genital system and obstetric disorders 29 weeks gestation of ([facility]) state, incidental Pre-existing type 2 diabetes mellitus in in third trimester ([facility]) Diabetes mellitus of mother, complicating , childbirth, or the puerperium, unspecified as to episode of care 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 Pre-existing type 2 diabetes mellitus in in first trimester ([facility]) Diabetes mellitus of mother, complicating , childbirth, or the puerperium, unspecified as to episode of care Tobacco smoking complicating in first trimester ([facility]) Tobacco use disorder complicating , childbirth, or the puerperium, antepartum condition or complication History of recurrent UTI (urinary tract infection) Personal history of urinary (tract) infection 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, 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, 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 ([facility]) Herpes simplex type 2 (HSV-2) infection affecting , antepartum, unspecified trimester ([facility]) Supervision of high risk in third trimester ([facility])- Primary Unspecified high-risk Pre-existing type 2 diabetes mellitus in in third trimester ([facility]) Diabetes mellitus of mother, complicating , childbirth, or the puerperium, unspecified as to episode of care Herpes simplex type 2 (HSV-2) infection affecting , antepartum, unspecified trimester ([facility]) H/O macrosomia in in prior , currently ([facility]) with other poor obstetric history History of pre-eclampsia Personal history of other genital system and obstetric disorders 31 weeks gestation of ([facility]) state, incidental Supervision of high risk in third trimester ([facility])- Primary Unspecified high-risk Pre-existing type 2 diabetes mellitus in in third trimester ([facility]) Diabetes mellitus of mother, complicating , childbirth, or the puerperium, unspecified as to episode of care Exposure to parvovirus Contact with or exposure to other viral diseases History of pre-eclampsia Personal history of other genital system and obstetric disorders Pre-existing type 2 diabetes mellitus in in third trimester ([facility])- Primary Diabetes mellitus of mother, complicating , childbirth, or the puerperium, unspecified as to episode of care History of pre-eclampsia Personal history of other genital system and obstetric disorders H/O macrosomia in infant in prior , currently ([facility]) with other poor obstetric history 33 weeks gestation of ([facility]) state, incidental Request for sterilization Herpes simplex type 2 (HSV-2) infection affecting , antepartum, unspecified trimester ([facility]) History of herpes genitalis- Primary Personal history of other infectious and parasitic disease Pre-existing type 2 diabetes mellitus in in third trimester ([facility]) Diabetes mellitus of mother, complicating , childbirth, or the puerperium, unspecified as to episode of care History of pre-eclampsia Personal history of other genital system and obstetric disorders 36 weeks gestation of ([facility]) state, incidental care and examination immediately after delivery ([facility])- Primary care and examination immediately after delivery [facility] Diagnosis Pre-existing type 2 diabetes mellitus in in first trimester ([facility])- Primary Diabetes mellitus of mother, complicating , childbirth, or the puerperium, unspecified as to episode of care History of pre-eclampsia Personal history of other genital system and obstetric disorders H/O macrosomia in infant in prior , currently ([facility]) with other poor obstetric history 17 weeks gestation of ([facility]) state, incidental Encounter for screening for malformation using ultrasound ([facility]) Obesity affecting in first trimester, unspecified obesity type ([facility])- Primary Herpes simplex type 2 (HSV-2) infection affecting , antepartum, unspecified trimester ([facility]) Pre-existing type 2 diabetes mellitus in in first trimester ([facility]) Diabetes mellitus of mother, complicating , childbirth, or the puerperium, unspecified as to episode of care 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 Encounter for supervision of high risk in first trimester, antepartum ([facility]) 21 weeks gestation of ([facility]) state, incidental Pre-existing type 2 diabetes mellitus in in first trimester ([facility])- Primary Diabetes mellitus of mother, complicating , childbirth, or the puerperium, unspecified as to episode of care Obesity affecting in first trimester, unspecified obesity type ([facility]) History of pre-eclampsia Personal history of other genital system and obstetric disorders H/O macrosomia in in prior , currently ([facility]) with other poor obstetric history History of bipolar disorder Personal history of affective disorder 21 weeks gestation of ([facility]) state, incidental Encounter for anatomic survey ([facility]) Encounter for anatomic survey Supervision of high risk in third trimester ([facility])- Primary Unspecified high-risk History of pre-eclampsia Personal history of other genital system and obstetric disorders 29 weeks gestation of ([facility]) state, incidental Pre-existing type 2 diabetes mellitus in in third trimester ([facility]) Diabetes mellitus of mother, complicating , childbirth, or the puerperium, unspecified as to episode of care 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 Pre-existing type 2 diabetes mellitus in in first trimester ([facility]) Diabetes mellitus of mother, complicating , childbirth, or the puerperium, unspecified as to episode of care Tobacco smoking complicating in first trimester ([facility]) Tobacco use disorder complicating , childbirth, or the puerperium, antepartum condition or complication History of recurrent UTI (urinary tract infection) Personal history of urinary (tract) infection 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, 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, 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 ([facility]) Herpes simplex type 2 (HSV-2) infection affecting , antepartum, unspecified trimester ([facility]) Supervision of high risk in third trimester ([facility])- Primary Unspecified high-risk Pre-existing type 2 diabetes mellitus in in third trimester ([facility]) Diabetes mellitus of mother, complicating , childbirth, or the puerperium, unspecified as to episode of care Herpes simplex type 2 (HSV-2) infection affecting , antepartum, unspecified trimester ([facility]) H/O macrosomia in infant in prior , currently ([facility]) with other poor obstetric history History of pre-eclampsia Personal history of other genital system and obstetric disorders 31 weeks gestation of ([facility]) state, incidental Supervision of high risk in third trimester ([facility])- Primary Unspecified high-risk Pre-existing type 2 diabetes mellitus in in third trimester ([facility]) Diabetes mellitus of mother, complicating , childbirth, or the puerperium, unspecified as to episode of care Exposure to parvovirus Contact with or exposure to other viral diseases History of pre-eclampsia Personal history of other genital system and obstetric disorders Pre-existing type 2 diabetes mellitus in in third trimester ([facility])- Primary Diabetes mellitus of mother, complicating , childbirth, or the puerperium, unspecified as to episode of care History of pre-eclampsia Personal history of other genital system and obstetric disorders H/O macrosomia in infant in prior , currently ([facility]) with other poor obstetric history 33 weeks gestation of ([facility]) state, incidental Request for sterilization Herpes simplex type 2 (HSV-2) infection affecting , antepartum, unspecified trimester ([facility]) History of herpes genitalis- Primary Personal history of other infectious and parasitic disease Pre-existing type 2 diabetes mellitus in in third trimester ([facility]) Diabetes mellitus of mother, complicating , childbirth, or the puerperium, unspecified as to episode of care History of pre-eclampsia Personal history of other genital system and obstetric disorders 36 weeks gestation of ([facility]) state, incidental care and examination ([facility])- Primary Routine follow-up Request for sterilization Pre-op exam Preoperative examination, unspecified [facility] Diagnosis Pre-existing type 2 diabetes mellitus in in first trimester ([facility])- Primary Diabetes mellitus of mother, complicating , childbirth, or the puerperium, unspecified as to episode of care History of pre-eclampsia Personal history of other genital system and obstetric disorders H/O macrosomia in in prior , currently ([facility]) with other poor obstetric history 17 weeks gestation of ([facility]) state, incidental Encounter for screening for malformation using ultrasound ([facility]) Obesity affecting in first trimester, unspecified obesity type ([facility])- Primary Herpes simplex type 2 (HSV-2) infection affecting , antepartum, unspecified trimester ([facility]) Pre-existing type 2 diabetes mellitus in in first trimester ([facility]) Diabetes mellitus of mother, complicating , childbirth, or the puerperium, unspecified as to episode of care 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 Encounter for supervision of high risk in first trimester, antepartum ([facility]) 21 weeks gestation of ([facility]) state, incidental Pre-existing type 2 diabetes mellitus in in first trimester ([facility])- Primary Diabetes mellitus of mother, complicating , childbirth, or the puerperium, unspecified as to episode of care Obesity affecting in first trimester, unspecified obesity type ([facility]) History of pre-eclampsia Personal history of other genital system and obstetric disorders H/O macrosomia in infant in prior , currently ([facility]) with other poor obstetric history History of bipolar disorder Personal history of affective disorder 21 weeks gestation of ([facility]) state, incidental Encounter for anatomic survey ([facility]) Encounter for anatomic survey Supervision of high risk in third trimester ([facility])- Primary Unspecified high-risk History of pre-eclampsia Personal history of other genital system and obstetric disorders 29 weeks gestation of ([facility]) state, incidental Pre-existing type 2 diabetes mellitus in in third trimester ([facility]) Diabetes mellitus of mother, complicating , childbirth, or the puerperium, unspecified as to episode of care 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 Pre-existing type 2 diabetes mellitus in in first trimester ([facility]) Diabetes mellitus of mother, complicating , childbirth, or the puerperium, unspecified as to episode of care Tobacco smoking complicating in first trimester ([facility]) Tobacco use disorder complicating , childbirth, or the puerperium, antepartum condition or complication History of recurrent UTI (urinary tract infection) Personal history of urinary (tract) infection 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, 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, 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 long-term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 ([facility]) Herpes simplex type 2 (HSV-2) infection affecting , antepartum, unspecified trimester ([facility]) Supervision of high risk in third trimester ([facility])- Primary Unspecified high-risk Pre-existing type 2 diabetes mellitus in in third trimester ([facility]) Diabetes mellitus of mother, complicating , childbirth, or the puerperium, unspecified as to episode of care Herpes simplex type 2 (HSV-2) infection affecting , antepartum, unspecified trimester ([facility]) H/O macrosomia in infant in prior , currently ([facility]) with other poor obstetric history History of pre-eclampsia Personal history of other genital system and obstetric disorders 31 weeks gestation of ([facility]) state, incidental Supervision of high risk in third trimester ([facility])- Primary Unspecified high-risk Pre-existing type 2 diabetes mellitus in in third trimester ([facility]) Diabetes mellitus of mother, complicating , childbirth, or the puerperium, unspecified as to episode of care Exposure to parvovirus Contact with or exposure to other viral diseases History of pre-eclampsia Personal history of other genital system and obstetric disorders Pre-existing type 2 diabetes mellitus in in third trimester ([facility])- Primary Diabetes mellitus of mother, complicating , childbirth, or the puerperium, unspecified as to episode of care History of pre-eclampsia Personal history of other genital system and obstetric disorders H/O macrosomia in in prior , currently (HCC) with other poor obstetric history 33 weeks gestation of ([facility]) state, incidental Request for sterilization Herpes simplex type 2 (HSV-2) infection affecting , antepartum, unspecified trimester ([facility]) History of herpes genitalis- Primary Personal history of other infectious and parasitic disease Pre-existing type 2 diabetes mellitus in in third trimester ([facility]) Diabetes mellitus of mother, complicating , childbirth, or the puerperium, unspecified as to episode of care History of pre-eclampsia Personal history of other genital system and obstetric disorders 36 weeks gestation of ([facility]) state, incidental 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 Jamari Byrne MD Status:REG CLI Y Location: [place] [address] HPI - General HPI Narrative MELISSA BYRNE, is a 29 F at 31 weeks gestation who presents with lower abdominal pain and tightening. Denies any loss of fluid or vaginal bleeding. Maternal Data Information ADA Calculator Estimated Delivery Date Method Current WG Current Estimate 12/18/24 Manual 31w 0d [facility] Medical History Seizures Asthma Osteoarthritis Diabetes [...] Nickerson; Dr. Jamari Byrne MD ~ Signed [facility] Work Phone: History and physical note Author Mariajose Nickerson [facility] Note Date/Time December 16, 2024 8:47 pm [facility] Medical Records Department [address] [place] [address] OB Triage Physician Note 12/16/242022 MR#: [id number] Acct: [id number] Name: MELISSA BYRNE Rep #:[id number] : 1995 29 From: Mariajose Nickerson CNM PCP: Dr. Jamari Byrne MD Status:REG CLI Y Location: [place] [address] HPI - General HPI Narrative MELISSA BYRNE, [...] Nickerson; Dr. Jamari Byrne MD ~ Signed [facility] Work Phone: History of Present illness Narrative* Patient is here today for psych hospital follow up * Patient states that she has been under more stress lately, she apparently was talking to multiple different guys, quit all of her medications for a month, she bough kits on [email or web address] to tatoo herself. She had been at counseling and she had told her counselor that she was thinking about hurting herself. Sister thought she was more on the manic end of the spectrum. She was just discharged on Friday.she will see her counselor tomorrow and she has an upcoming appt with the psychiatrist on November 07. * She was admitted to [facility] for 5 days. She is currently on Prozac 40mg po daily * She had stopped taking her diabetes meds also. She is back on the metformin 1000mg po daily. She was needing short acting insulin in the hospital. * Pt gve her glucometer to her dad so has not been able to check her blood sugars. -[facility] Work Phone: History of Present illness NarrativePatient is a 26-year-old who comes in for test of cure for chlamydia and trichomoniasis. Patient reports that she did take the medication Flagyl and the powdered Zithromax. She has also informed her sexual partners. Patient currently is on her mensesWomen[address] Work Phone: Hospital Discharge instructions* Attachments The following attachments cannot be sent through Care Everywhere. * Urinary tract infections in ([place]) * Genital Herpes Discharge Instructions ([place]) documented in this encounterUnWVUMed[facility] Work Phone: Hospital Discharge instructions* Attachments The following attachments cannot be sent through Care Everywhere. * Flu Discharge Instructions, Adult ([place]) documented in this encounterUnWVUMed[facility] Work Phone: Hospital Discharge instructions Additional Instructions [facility] Work Phone: Hospital Discharge instructionsAdditional Instructions Date of Discharge: 12/09/24[facility] Work Phone: Hospital Discharge instructionsAdditional Instructions Keep follow up appointment with Dr Gramajo next Friday. Return to the hospital for any worsening symptoms.[facility] Work Phone: Hospital Discharge instructionsAdditional Instructions Please continue all your home medication as directed by your doctor and return to the ER should you have any further concerns or worsening of symptomsWTriHealth [facility] Work Phone: Reason for referral (narrative)* Consultation (Routine) - Authorized Specialty Diagnoses / Procedures Referred By Shell t Referred To Contact Dermatology Diagnoses Necrobiosis lipoidica Jamari Byrne MD [address] [facility], [facility] [address] [place] [address] Radha Patel MD [address] [facility] [place] [address] Referral ID Status Reason Start Date Expiration Date Visits Requested Visits Authorized [id number] Authorized Specialty Services Required 12/25/2023 12/24/2024 1 1 [facility] Work Phone: Reason for referral (narrative)* Outpatient Procedure (Routine) - New Request Specialty Diagnoses / Procedures Referred By Contac t Referred To Contact [facility]] [facility]NER Diagnoses Pre-existing type 2 diabetes mellitus in in first trimester [place] [address] [place] [address] [facility] [address] [place] [address] Referral ID Status Reason Start Date Expiration Date Visits Requested Visits Authorized [id number] New Request Auto-Generat ed Referral 06/15/2024 06/15/2025 1 1 [facility] for referral (narrative)* Diagnostic Procedure Only (Routine) - Authorized Specialty Diagnoses / Procedures Referred By Contac t Referred To Contact [facility] Diagnoses Encounter for anatomic survey Procedures OBSTETRIC ULTRASOUND WHI US PREG UTERUS AFTER 1ST TRIMEST 1 GESTATION William Gramajo MD [address] [place] [address] [facility] [address] [place] [address] Referral ID Status Reason Start Date Expiration Date Visits Requested Visits Authorized [id number] Authorized Auto-Generat ed Referral 07/13/2024 07/13/2025 1 1 [facility] for referral (narrative)No reason for referral information availableWTriHealth [facility] Work Phone: Reason for visit Narrative* Transition of Care (Routine) - Closed Specialty Diagnoses / Procedures Referred By Contac t Referred To Contact Diagnoses complication before (HCC) Procedures MPOWER CONSULT William Gramajo MD [address] [place] [address] Phone: tel: fax: Referral ID Status Reason Start Date Expiration Date V isits Requested Visits Authorized [id number] Closed PCP Requested Referral 09/13/2024 09/13/2025 1 1 [facility] for visit Narrative* Diagnostic Procedure Only (Routine) - Closed Specialty Diagnoses / Procedures Referred By Contac t Referred To Contact [facility] Diagnoses Supervision of high risk in third trimester (HCC) Pre-existing type 2 diabetes mellitus in in first trimester (HCC) Procedures BIOPHYSICAL PROFILE US WHI BIOPHYSICAL PROFILE NON-STRESS TESTING Piper Julian MD [address] [place] [address] Phone: tel: fax: [facility] [address] [place] [address] Referral ID Status Reason Start Date Expiration Date V isits Requested Visits Authorized [id number] Closed Auto-Generate d Referral 10/05/2024 10/05/2025 10 1 [facility] Summary Purpose Family History No Family [...] FoundDocuments on File Type Date Recorded Patient Therapy Aide Expl anation Advance Directives and Livin g Will 02/10/2019 5:53 PM Documents on File Type Date Recorded Patient Therapy Aide Expl anation Advance Directives and Livin g Will 03/21/2019 11:25 PM Documents on File Type Date Recorded Patient Therapy Aide Expl anation Advance Directives and Livin g Will 03/21/2019 11:25 PM Documents on File Type Date Recorded Patient Therapy Aide Expl anation Advance Directives and Livin g Will 07/19/2020 11:25 PM Documents on File Type Date Recorded Patient Therapy Aide Expl anation Advance Directives and Livin g Will 07/19/2020 11:25 PM Documents on File Type Date Recorded Patient Therapy Aide Expl anation Advance Directives and Livin g Will 03/11/2019 11:43 AM Advance Directive Response Recorded Date/ Time Do you have a Healthcare Power of Agency Operator? No December 07, 2024 1:05pm Advance Directive Response Recorded Date/ Time Do you have a Healthcare Power of Agency Operator? No December 07, 2024 1:05pm Do you have a Healthcare Power of Agency Operator? No January 20, 2025 10:57pm Discharge Instructions * Attachments The following attachments cannot be sent through Care Everywhere. * Abdominal Pain, Adult ([place]) * Diabetes with High Blood Sugar ([place]) documented in this encounter* Instructions* Camilo June PA-C - 02/10/2019 CONTACT YOUR PSYCHIATRIST'S OFFICE IN [place] TOMORROW MORNING TO INFORM THE STAFF OF YOUR EVALUATION IN THE EMERGENCY DEPARTMENT AND NEED FOR AN APPOINTMENT. * Attachments The following attachments cannot be sent through Care Everywhere. * Mood Disorders: General Info ([place]) documented in this encounter* Instructions* Claude Peralta MD - 03/21/2019 If symptoms do not improve consult with your doctor Return to ER as needed documented in this encounter* Attachments The following attachments cannot be sent through Care Everywhere. * URI (Upper Respiratory Infection) ([place]) * Hyperglycemia: General Info ([place]) documented in this encounter* Attachments The following attachments cannot be sent through Care Everywhere. * Anxiety Disorder ([place]) documented in this encounter* Instructions* Hailey Paiz CNP - 10/05/2018 Follow-up with your PCP in the next 1 to 2 days for further evaluation of your diabetes. * Attachments The following attachments cannot be sent through Care Everywhere. * Diabetes: Sick Care ([place]) * Glycemic Index: General Info ([place]) * Diabetes: Type 2: General Info ([place]) * Diabetes: Heart Disease: General Info ([place]) * Hyperglycemia: General Info ([place]) documented in this encounter Assessments Diagnosis Lower [...] Procedures PSG SEIZURE Maty Frost MD [address] [place] [address] Sleep Medicine [address] [place] [address] Status Reason Specialty Diagnoses / Procedures Referred By Contact Referred To Contact Pending Review Specialty Services Required/Patien t's Best Interest Neurology Diagnoses Seizure (HCC) Procedures EEG (Standard) Srini Medina MD [address] [facility] [address] [place] [address] Eeg Neurodiag [address] [place] [address] Status Reason Specialty Diagnoses / Procedures Referred By Contact Referred To Contact Authorized Sleep Medicine Diagnoses Seizure (HCC) Srini Medina MD [address] [address] Maty Chavez MD [address] [place] [address] Specialty Diagnoses / Procedures Referred By Contac t Referred To Contact Diagnoses Insulin controlled gestational diabetes mellitus (GDM) in first trimester Procedures ENDOCRINOLOGY DIETITIAN VISIT (MNT) MEDICAL NUTRITION ASSMT&IVNTJ INDIV EACH 15 WV MEDICAL NUTRITION ASSMT&IVNTJ INDIV EACH 15 [place] MEDICAL NUTRITION ASSMT&IVNTJ INDIV EACH 15 W[place] MEDICAL NUTRITION ASSMT&IVNTJ INDIV EACH 15 W[place] Kelsy Guillermo, DO [address] [place] [address] Referral ID Status Reason Start Date Expiration Date Visits Requested Visits Authorized [id number] Authorized PCP Requested Referral 4 05/03/2025 1 1 Specialty Diagnoses / Procedures Referred By Contac t Referred To Contact Diagnoses Encounter for supervision of high risk in first trimester, antepartum H/O macrosomia in infant in prior , currently Pre-existing type 2 diabetes mellitus in in first trimester History of pre-eclampsia Procedures CONSULT TO MATERNAL MEDI OFFICE/OUTPATIENT NEW HIGH MDM 60 MINUTES Zayda Parker APRN.WAREHOUSE UNLOADER [address] [place] [address] Referral ID Status Reason Start Date Expiration Date Visits Requested Visits Authorized [id number] Authorized PCP Requested Referral Auto-Generate d Referral 4 05/07/2025 1 1 Specialty Diagnoses / Procedures Referred By Contac t Referred To Contact [facility] Diagnoses with uncertain dates in first trimester Procedures NUCHAL TRANSLUCENCY WHI US NUCHAL TRANSLUCENCY 1ST GESTATION Zayda Parker APRN.WAREHOUSE UNLOADER [address] [place] [address] [address] Referral ID Status Reason Start Date Expiration Date Visits Requested Visits Authorized [id number] Authorized Auto-Generat ed Referral 4 05/07/2025 1 1 Specialty Diagnoses / Procedures Referred By Contac t Referred To Contact [facility] Diagnoses with uncertain dates in first trimester Procedures OBSTETRIC ULTRASOUND WHI US PREG UTERUS AFTER 1ST TRIMEST GESTATION Zayda Parker APRN.WAREHOUSE UNLOADER [address] [place] [id number] [place] [id number] Referral ID Status Reason Start Date Expiration Date Visits Requested Visits Authorized [id number] New Request Auto-Generat ed Referral 4 05/07/2025 [...] or abnormal muscle tone. Coordination: Coordination normal. Sogzfn-Ppfp-Jpjosd Test normal. Gait: Gait is intact. Gait [...] time. Impression/diagnosis, plans were explained and discussed. [place] seizure precautions. Avoid triggers and precipitating factors. [...] Portions of this chart was created using [facility] voice recognition software. Occasional wrong-word or sound-like [...] last pap was 3-4 years ago in [place] that the patient states was normal. She [...] 2 diabetes mellitus December 16, 2024 7:10pm Chief Complaint Admit Date ABD PAIN September 24, 2024 1:4 8pm RULE OUT LABOR October 16, 2024 5:10p m R/O LABOR November 15, 2024 3:32p m VAG December 07, 2024 11:00 am POST PRE E December 16, 2024 7:10 pm nv January 20, 2025 10 :23pm Reason for Visit Admit Date 27 weeks gestation of September 242024 1:48pm Uterine irritability September 24, 2024 1: 48pm Asthma October 16, 2024 5:10p m Bipolar 1 disorder October 16, 2024 5:10p m History of herpes genitalis October 16 5:10pm Type 2 diabetes mellitus affecting pregn ciaran, antepartum October 16, 2024 5:10pm Obesity affecting October 16 5:10pm 31 weeks gestation of October 5:10pm Obesity affecting November 15 3:32pm 35 weeks gestation of November 3:32pm False labor November 15, 2024 3:32p m Asthma December 07, 2024 11:00 am Bipolar 1 disorder December 07, 2024 11:00 am Diabetes December 07, 2024 11:00 am History of herpes genitalis December 07 11:00am (spontaneous vaginal delivery) December 07, 2024 11:00am Type 2 diabetes mellitus affecting pregn ciaran, antepartum December 07, 2024 11:00am 38 weeks gestation of December 11:00am Care and examination of lactating mother December 07, 2024 11:00am Obesity affecting December 07 11:00am Asthma December 16, 2024 7:10 pm Bipolar 1 disorder December 16, 2024 7:10 pm Headache December 16, 2024 7:10 pm Nausea & vomiting December 16, 2024 7:10 pm Status post vaginal delivery December 16, 2024 7:10pm Type 2 diabetes mellitus December 16, 2024 7:10pm Additional Source Comments INFORMATION SOURCE (unrecogn ized section and content) DATE CREATED AUTHOR 12/02/2017 [facility] DATE CREATED AUTHOR AUTHOR'S ORGANIZ ATION 12/17/2017 [facility] DATE CREATED AUTHOR AUTHOR'S ORGANIZ ATION 01/24/2018 [facility] DATE CREATED AUTHOR AUTHOR'S ORGANIZ ATION 05/18/2018 [facility] DATE CREATED AUTHOR AUTHOR'S ORGANIZ ATION 07/29/2018 [facility] DATE CREATED AUTHOR AUTHOR'S ORGANIZ ATION 01/02/2019 [facility] DATE CREATED AUTHOR AUTHOR'S ORGANIZ ATION 03/11/2019 [facility] DATE CREATED AUTHOR AUTHOR'S ORGANIZ ATION 03/18/2020 [facility] DATE CREATED AUTHOR AUTHOR'S ORGANIZ ATION 07/05/2020 [facility] DATE CREATED AUTHOR AUTHOR'S ORGANIZ ATION 07/20/2020 [facility] DATE CREATED AUTHOR AUTHOR'S ORGANIZ ATION 08/05/20[facility] DATE CREATED AUTHOR AUTHOR'S ORGANIZ ATION 10/28/[address] [facility] ical Center DATE CREATED AUTHOR AUTHOR'S ORGANIZ ATION 05/31/2022 [facility] DATE CREATED AUTHOR AUTHOR'S ORGANIZ ATION 08/18/2022 [facility] DATE CREATED AUTHOR AUTHOR'S ORGANIZ ATION 11/28/2022 [facility] ical Center DATE CREATED AUTHOR AUTHOR'S ORGANIZ ATION 12/04/2022 [facility] DATE CREATED AUTHOR AUTHOR'S ORGANIZ ATION 04/19/2024 [facility] DATE CREATED AUTHOR AUTHOR'S ORGANIZ ATION 04/26/2024 [facility] DATE CREATED AUTHOR AUTHOR'S ORGANIZ ATION 09/07/[address] [facility] DATE CREATED AUTHOR AUTHOR'S ORGANIZ ATION 10/15/2024 [facility] DATE CREATED AUTHOR AUTHOR'S ORGANIZ ATION 11/07/2024 [facility] DATE CREATED AUTHOR AUTHOR'S ORGANIZ ATION 01/20/2025 [facility] DATE CREATED AUTHOR AUTHOR'S ORGANIZ ATION 01/21/2025 [facility] DATE CREATED AUTHOR AUTHOR'S ORGANIZ ATION 01/23/2025 [facility] Reason for Visit (unrecogniz ed section and content) Reason Comments Abdominal Pain lower abs pain x 7 d ays, nausea no vomitting. Reason Comments Suicidal Reason Comments Nausea Abdominal Pain lower abdomen Status Reason Specialty Diagnoses / Procedures Referred By Contact Referred To Contact Closed Sleep Medicine Diagnoses MG (obstructive sleep apnea) MG Procedures PSG SEIZURE MONTAGE Maty Chavez MD [address] [place] [address] Sleep Medicine [address] [place] [address] Status Reason Specialty Diagnoses / Procedures Referred By Contact Referred To Contact Pending Review Specialty Services Required/Patien t's Best Interest Neurology Diagnoses Seizure (HCC) Procedures EEG (Standard) Srini Medina MD [address] [address] Eeg Neurodiag [address] [place] [address] Reason Comments Shortness of Breath has been [...] Interest Neurology Diagnoses Seizure (HCC) Rich Ng, [address] [place] [address] Srini Medina MD [address] Misty Laws [address] [address] Reason Comments Mental Health Problem Reason Comments Shortness of Breath Nausea Palpitations Reason Comments Vaginitis Itching, some burnin g, white discharge sometimes yellow, denies urine frequency or urgency, would like to do a STI screening also Reason Comments 3 month Specialty Diagnoses / Procedures Referred By Contac t Referred To Contact Primary Care Procedures Follow Up In Primary Care Jamari Byrne MD [address] [facility], [place] [address] [place] [address] Referral ID Status Reason Start Date Expiration Date V isits Requested Visits Authorized [id number] Authorized 09/09/2022 03/08/2023 1 1 Reason Comments [...] in Specialty Diagnoses / Procedures Referred By Contac t Referred To Contact Endocrinology Diagnoses Insulin controlled gestational diabetes mellitus (GDM) in first trimester Procedures CONSULT TO ENDOCRINOLOGY OFFICE/OUTPATIENT NEW HIGH MDM 60 MINUTES William Gramajo MD [address] [place] [address] Referral ID Status Reason Start Date Expiration Date V isits Requested Visits Authorized [id number] Closed PCP Requested Referral 04/20/2024 04/20/2025 1 [...] By Shell lucia Referred To Contact [facility] Diagnoses with uncertain dates in first trimester Procedures NUCHAL TRANSLUCENCY WHI US NUCHAL TRANSLUCENCY 1ST GESTATION Zayda Parker APRN.WAREHOUSE UNLOADER [address] [place] [address] [facility] [address] [place] [address] Referral ID Status Reason Start Date Expiration Date V isits Requested Visits Authorized [id number] Closed Auto-Generat ed Referral Patient Cleared - [...] ESTABLISHED HIGH MDM 40 MIN Zayda Parker APRN.WAREHOUSE UNLOADER [address] [place] [address] [employer] [address] [place] [address] Referral ID Status Reason Start Date Expiration Date Visits Requested Visits Authorized [id number] Authorized PCP Requested Referral Auto-Generate d Referral 06/09/2024 06/08/2025 99 99 Reason Comments Medical Nutrition Therapy Reason Comments OB Cramping Reason Comments Cough C/o cough and vomiti ng since yesterday. Also c/o fever. States she is approx 15 wks preg. Reason Comments OB Influenza Specialty Diagnoses / Procedures Referred By Contac t Referred To Contact [facility] Diagnoses with uncertain dates in first trimester Encounter for supervision of normal , unspecified, unspecified trimester Procedures OBSTETRIC ULTRASOUND WHI US PREG UTERUS AFTER 1ST TRIMEST GESTATION Zayda Parker APRN.REYES [address] [place] [address] [address] [place] [address] Referral ID Status Reason Start Date Expiration Date Visits Requested Visits Authorized [id number] Authorized Auto-Generat ed Referral 06/29/2024 06/08/2025 20 20 Reason Onset Date Comments Care 07/13/2024 Reason Comments Refill Request Reason Comments Vaginal Problem Reason Comments Follow Up Gestational Diabetes Specialty Diagnoses / Procedures Referred By Contac t Referred To Contact [facility] Diagnoses Encounter for anatomic survey Procedures OBSTETRIC ULTRASOUND WHI US PREG UTERUS AFTER 1ST TRIMEST GESTATION William Gramajo MD [address] [place] [address] Phone: tel: fax: [address] [phone] Referral ID Status Reason Start Date Expiration Date V isits Requested Visits Authorized [id number] Closed Auto-Generate d Referral 07/13/2024 07/13/2025 1 1 Reason Onset Date Comments Care 08/10/2024 Reason Comments returning your call Reason Comments Patient Request Reason Comments Patient Question Specialty Diagnoses / Procedures Referred By Contac t Referred To Contact [facility] Diagnoses Obesity affecting in first trimester, unspecified obesity type (HCC) Pre-existing type 2 diabetes mellitus in in first trimester (HCC) Procedures OBSTETRIC ULTRASOUND WHI US PREG UTERUS AFTER 1ST TRIMEST GESTATION William Gramajo MD [address] [place] [address] Phone: tel: fax: [address] [phone] Referral ID Status Reason Start Date Expiration Date V isits Requested Visits Authorized [id number] Closed Auto-Generate d Referral 08/10/2024 08/10/2025 4 [...] Referred By Shell lucia Referred To Contact [facility]NOTE 3[facility] Diagnoses History of pre-eclampsia 29 weeks gestation of ([facility]) Pre-existing type 2 diabetes mellitus in in third trimester ([facility]) Supervision of high risk in third trimester ([facility]) Procedures ECG COMPLETE ECG ROUTINE ECG W/LEAST 12 LDS W/I&R Piper Julian MD [address] [place] [address] Phone: tel: fax: [address] [phone] Referral ID Status Reason Start Date Expiration Date V isits Requested Visits Authorized [id number] Closed Auto-Generate d Referral 10/04/2024 10/04/2025 1 1 Reason Onset Date Comments Care 11/02/2024 Reason Comments Breast Pump Reason Onset Date Comments Care 11/05/2024 Specialty Diagnoses / Procedures Referred By Shell lucia Referred To Contact [facility] Diagnoses Supervision of high risk in third trimester ([facility]) Pre-existing type 2 diabetes mellitus in in first trimester ([facility]) Procedures BIOPHYSICAL PROFILE US I BIOPHYSICAL PROFILE NON-STRESS TESTING Piper Julian MD [address] [place] [place] [address] Phone: tel: fax: [facility] [place] [address] Referral ID Status Reason Start Date Expiration Date V isits Requested Visits Authorized [id number] Closed Auto-Generate d Referral 10/05/2024 10/05/2025 10 1 Reason Onset Date Comments Care 11/11/2024 Reason Onset Date Comments Care 11/15/2024 Reason Onset Date Comments Care 11/18/2024 Reason Onset Date Comments Care 11/25/2024 Reason Onset Date Comments Care 12/02/2024 Reason Onset Date Comments Care 12/06/2024 Reason Comments Ob Delivery Note Reason Comments Care Reason Comments Follow Up Insulin Dependent Diabetes Mellitus Monique Cartwright LSW - 02/10/2019 7:23 PM EDMonique Lopez LSW - 03/11/2019 1:52 PM EDT Consult Notes (unrecognized section and content) ED [address] Reporter Behavioral Health Initial Assessment Date: 02/10/2019 Time: 7:24 PM Patient Name: Melissa Kaur Date of : 1995 Sex: Female Admit Date/Time: 02/10/2019 5:04 PM GENERAL INFORMATION General Information Therapy Aide Needs: Not needed Information Provided By: Patient, Patient Support System: Current Living Arrangements: Lives with and 2 elderly friends Type of Residence: Private residence Name and Contact of Collateral Provider: Jorge () [phone] LEGAL STATUS Voluntary DIAGNOSIS/ACTIVE PROBLEM LIST Hospital [...] Previous Psychiatric Medications: Anti-depressants Previous Psychiatric Hospitalizations: [facility] December 2018 Current Psychiatric Medications: Prozac ALCOHOL/DRUG [...] Conflict Resolution (Coping Skills): Yes Cultural and Confucianism Beliefs: Yes Access to Weapons: No TREATMENT [...] Jones, updated. documented in this encounter ED [address]el[address] Reporter Behavioral Health Initial Assessment Date: 03/11/2019 Time: 3:21 PM Patient Name: Melissa Kaur Date of : 1995 Sex: Female Admit Date/Time: 03/11/2019 10:50 AM GENERAL INFORMATION General Information Therapy Aide Needs: Not needed Information Provided By: Patient Patient Support System: Current Living Arrangements: Lives with and elderly friends Type of Residence: Private residence Name and Contact of Collateral Provider: Mahendra (Spouse) [phone] LEGAL STATUS Voluntary DIAGNOSIS/ACTIVE PROBLEM LIST Hospital [...] she will be attending. Pt follows at [facility] counseling every 2 weeks. Pt sees a counselor and psychiatrist. Pt is prescribed Risperdal and takes it as prescribed. Pt reports she has been hospitalized at [facility] int he past. 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 Pt is currently unemployed. PAST PSYCHIATRIC HISTORY Past Psychiatric History Previous Psychiatric Diagnosis: Depression, Pt states schizophrenia Previous Psychiatric Medications: Anti-depressants Previous Psychiatric Hospitalizations: [facility] Current Psychiatric Medications: Risperdal ALCOHOL/DRUG ABUSE HISTORY [...] Conflict Resolution (Coping Skills): Yes Cultural and Confucianism Beliefs: Yes Access to Weapons: No TREATMENT RECOMMENDATIONS AND CLINICAL SUMMARY Treatment Recommendations and Clinical Summary Current Recommendations: Referral for outpatient counseling RATIONALE/PLAN FOR TREATMENT: Spoke to DAYAMI Camacho, about Pt not wanting to stay at the hospital. Gisselle states she does not feel she can completed an involuntary admission on the Pt and will discharge her. Did call [facility] with Pt's permission to see if they could get her an earlier appointment which they could not. Pt again states she will not stay at the hospital and wants to return home. documented in this encounter Clinton Meza - 02/10/2019 6:36 PM EDTBClinton smith - 02/10/2019 6:29 PM EDClinton Gillespie - 02/10/2019 6:27 PM EDTBClinton smith - 02/10/2019 5:45 PM EDTBClinton smith - 02/10/2019 5:43 PM EDT ED Notes (unrecognized secti on and content) Freelance Court Reporter in room thirty one Patient in bathroom at this time Bathroom at this time Nurse doing blood draw at this time Nurse in room with patient Patient now in room with PA Camilo Patient changed into agown. PT REPORTS, THOUGHTS TO HARM SELF. SENT TO [facility] LAST December FOR SUICIDAL IDEATIONS. TODAY COULDN'T GET A HOLD OF COUNSELOR, DIDN'T KNOW WHAT ELSE TO DO, CAME TO ED FOR HELP. PSA taking Vitals at this time. documented in this encounter ED PROVIDER NOTE [facility] EMERGENCY DEPARTMENT NAME: Melissa Kaur AGE: 24 y.o. : 1995 VISIT DATE: 03/21/2019 CSN: [id number] PCP: Verona Hilliard MD Chief Complaint Patient [...] file Gets together: Not on file Attends quaker service: Not on file Active member of [...] Yellow Clarity, Urine Hazy (A) Clear Specific [place] 1.020 1.005 - 1.025 pH, Urine 6.0 [...] not been specified. Claude Peralta MD 03/21/19 9001 Pt states abdominal pain, nausea for 3 days with vomiting starting today. documented in this encounter PT AWAKE BUT RESTFUL ON CART. RESPS UNLABORED. NO VISIBLE DISTRESS OBSERVED AND NO C/O VOICED. DISCHARGE COMPLETED. PT RESTFUL WITHOUT C/O OR NEEDS VOICED. WAITING ON COMPLETION OF TEST RESULTS AND RE-EVAL / DISPOSITION. ED PROVIDER NOTE [facility] EMERGENCY DEPARTMENT NAME: Melissa Kaur AGE: 23 y.o. : 1995 VISIT DATE: 10/06/2018 CSN: [id number] PCP: Verona Hilliard MD Chief Complaint Patient presents with Shortness of Breath has been feeling SOB all day Hyperglycemia pt report s high BS, states it was 201 at home HPI patient is a 23-year-old with history of type 2 diabetes bzx-aduvcfe-lizuyhoia anxiety depression reactive airway disease who presents [...] Yellow Clarity, Urine Hazy (A) Clear Specific [place] 1.014 1.005 - 1.025 pH, Urine 5.0 [...] Disposition Condition Comment Discharge Stable Melissa J Vincent discharged to home/self care in stable condition. Follow-up Information 1. Verona Hilliard MD. Specialty: Family Medicine Why: If symptoms worsen [address] [facility] [phone] Contact information for after-discharge care Follow-up information [...] PT REPORT RECEIVED FROM BRENNAN RN AND BETSY DURAN. Pt ambulated to 12. Steady gait. Complaint of high BS and SOB. A&Ox3. No distress. Breathing even and unlabored. Lungs clear bilat. Assessment complete. call light in reach. [facility]: 12 Expected date: Expected time: Means of arrival: Comments: [facility] documented in this encounter Patient was discharged Patient pacing in room at this time PRESCHOOL PROGRAM DIRECTOR bedside [facility] ED PAUL Note: NAME: Melissa Mckoy Kaur 24 y.o. CSN: [id number] PCP: Verona Hilliard MD History: Chief Complaint: [...] they are currently manageable. Patient goes to [facility] for counseling and psychiatry care. Patient reports [...] file Gets together: Not on file Attends quaker service: Not on file Active member of [...] and atraumatic. Nose: Nose normal. Mouth/Throat: Lips: Slaughter. Mouth: Mucous membranes are moist. Pharynx: Oropharynx [...] Result Value Clarity, Urine Hazy (*) Specific [place] 1.029 (*) Ketones, Urine Trace (*) Urobilinogen, [...] baseline and feels safe to go home. 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 patient is to keep her follow-up appointment [...] Gisselle Monterroso CNP ED Advanced Practice Provider [facility] Emergency Department (Please note that portions of this note have been completed with a voice recognition software. Efforts were made to correct any errors, but occasionally words are mis-transcribed.) Gisselle Monterroso CNP 03/11/19 1301 Nurse now doing a blood draw MARKET RESEARCH ASSOCIATE was in room with patient Freelance Court Reporter in room with patient DAYAMI Camacho [facility] Pt in blue gown , sitter [...] removed from the room: IV pole; Nurse traffic observer Misc. items removed from the room: Removable [...] CRITICAL LAB: GLUCOSE = 460; READBACK COMPLETED; MARKET RESEARCH ASSOCIATE, HAILEY, MADE AWARE. ABG's completed. Patient to ED due to Heart racing And SOB. Dizziness and lightheaded noted Ambulated to restroom and backwith stand by assist. States is lightheaded Student Parmedic assisting with IV. Nicholas. Beginning assessments [facility] ED PAUL Note: NAME: Melissa Kaur 23 y.o. CSN: [id number] PCP: Verona Hilliard MD History: Chief Complaint: [...] (36.9 C) Oral 96 98 % 10/04/18 1931 5' 3 80.7 kg (178 lb) Physical [...] Procedure Abnormality Status --------- ------ CBC Auto Differential[[id number]] Final result Please view results for these tests on the individual orders. POC GLUCOSE POC GLUCOSE POC ARTERIAL BLOOD GAS PANEL-PULM - RALS CBC WITH AUTO DIFFERENTIAL XR Chest AP/PA and LAT Non-public Result No acute cardiopulmonary disease. Workstation ID: [id number] MDM: ED Course as of Oct 05 114 [place] Oct 04, [id number] Glucose: (!!) 442 [SS] 8 Plan to initiate fluid resuscitation and evaluate for possible DKA. [SS] 2300 D-Dimer: 0.31 [SS] 2300 Beta-Hydroxybutyrate: 0.2 [SS] 2323 Plan to continue with an additional 1 L fluid. And 10 units subcu regular insulin. Patient has been instructed on appropriate monitoring of her glucose at home. Instructed to keep a log and follow-up with her PCP this week for further evaluation. [SS] FriOct 05, 2018 0045 Recheck glucose level at [...] home. ELIF Wilhelm ED Advanced Practice Provider [facility] Emergency Department (Please note that portions of [...] 14 days? No Have you been/visited a [place] health care facility in the past two weeks? No Have [...] of the above questions, consult the ordering delicatessen manager to determine if patient needs COVID test [...] section and content) Associated Order(s): EEG (STANDARD) [facility] Reason for EEG: Spells [...] Care Teams (unrecognized sec tion and content) Land Surveying Manager Relationship Specialty Start Date End Date Marshall Brown MD [address] [place] [address] PCP - General 05/15/22 Land Surveying Manager Relationship Specialty Start Date End Date Jamari Byrne MD [facility] [facility], [facility] [address] [phone] PCP - General 11/12/21 Land Surveying Manager Relationship Specialty Start Date End Date Jamari Byrne MD [address] [facility], [place] [address] [place] [address] PCP - General 11/12/21 Jamari Byrne MD [address] [facility], [place] [address] [phone] PCP - [employer]CO PCP 10/07/22 Land Surveying Manager Relationship Specialty Start Date End Date Jamari Byrne MD [address] [facility], [place] [address] [phone] PCP - General 11/12/21 Jamari Byrne MD [address] [facility], [place] [address] [phone] PCP - [employer] ACO PCP 10/07/22 Land Surveying Manager Relationship Specialty Start Date End Date Jamari Byrne MD [address] [facility], [place] [address] [phone] PCP - General 11/12/21 Jamari Byrne MD [address] [facility], [place] [address] [phone] PCP - [employer] PCP 10/07/22 Land Surveying Manager Relationship Specialty Start Date End Date Jamari Byrne MD [address] [place] [phone] PCP - General Family Medicine 08/19/23 Land Surveying Manager Relationship Specialty Start Date End Date Jamari Byrne MD [address] [facility], [place] [address] [place] [address] PCP - General 11/12/21 Jamari Byrne MD [address] [facility], [place] [address] [place] [address] PCP - [employer] PCP 10/07/22 Land Surveying Manager Relationship Specialty Start Date End Date Jamari Byrne MD [address] [place] [phone] PCP - General Family Medicine 08/19/23 Land Surveying Manager Relationship Specialty Start Date End Date Jamari Byrne MD [address] [facility], [facility] [address] [place], [facility] PCP - General 11/12/21 Jamari Byrne MD [address] [facility], [facility] [address] [phone] PCP - [employer] A[employer] PCP 10/07/22 Land Surveying Manager Relationship Specialty Start Date End Date Jamari Byrne MD [address] [place] [address] PCP - General Family Medicine 08/19/23 Land Surveying Manager Relationship Specialty Start Date End Date Jamari Byrne MD [address] [place] [address] PCP - General Family Medicine 08/19/23 Land Surveying Manager Relationship Specialty Start Date End Date Jamari Byrne MD [address] [facility], [place] [address] [place] [address] PCP - General 11/12/21 Jamari Byrne MD [address] [facility], [place] [address] [place] [address] PCP - [employer] PCP 10/07/22 Land Surveying Manager Relationship Specialty Start Date End Date Jamari Byrne MD [address] [place] [phone] PCP - General Family Medicine 08/19/23 Land Surveying Manager Relationship Specialty Start Date End Date Jamari Byrne MD [address] [place] [phone] PCP - General Family Medicine 08/19/23 Land Surveying Manager Relationship Specialty Start Date End Date Jamari Byrne MD [address] [facility], [place] [address] [place], [facility] PCP - General 11/12/21 Jamari Byrne MD [address] [facility], [place] [address] [place] [address] PCP - [employer] PCP 10/07/22 Land Surveying Manager Relationship Specialty Start Date End Date Jamari Byrne MD [address] [place] [address] PCP - General Family Medicine 08/19/23 Land Surveying Manager Relationship Specialty Start Date End Date Jamari Byrne MD [address] [place] [phone] PCP - General Family Medicine 08/19/23 Land Surveying Manager Relationship Specialty Start Date End Date Jamari Byrne MD [address] [place] [phone] PCP - General Family Medicine 08/19/23 Land Surveying Manager Relationship Specialty Start Date End Date Jamari Byrne MD [address] [place] [phone] PCP - General Family Medicine 08/19/23 Land Surveying Manager Relationship Specialty Start Date End Date Jamari Byrne MD [address] [place] [phone] PCP - General Family Medicine 08/19/23 Land Surveying Manager Relationship Specialty Start Date End Date Jamari Byrne MD [address] [place] [phone] PCP - General Family Medicine 08/19/23 Land Surveying Manager Relationship Specialty Start Date End Date Jamari Byrne MD [address] [facility], [place] [address] PCP - General 11/12/21 Jamari Byrne MD [address] [facility] [place] [address] [facility] 10/07/22 Land Surveying Manager Relationship Specialty Start Date End Date Jamari Byrne MD [address] [facility], [place] [address] [place], [facility] PCP - General 11/12/21 Jamari Byrne MD [address] [facility], [place] [address] [place] [address] PCP - [facility] PCP 10/07/22 Land Surveying Manager Relationship Specialty Start Date End Date Jamari Byrne MD [address] [facility], [place] [address] [place], [facility] PCP - General 11/12/21 Jamari Byrne MD [address] [facility], [place] [address] [place], [facility] PCP - [employer] PCP 10/07/22 Land Surveying Manager Relationship Specialty Start Date End Date Jamari Byrne MD [address] [place] [address] PCP - General Family Medicine 08/19/23 Land Surveying Manager Relationship Specialty Start Date End Date Jamari Byrne MD [address] [place] [address] PCP - General Family Medicine 08/19/23 Land Surveying Manager Relationship Specialty Start Date End Date Jamari Byrne MD [address] [place] [address] PCP - General Family Medicine 08/19/23 Land Surveying Manager Relationship Specialty Start Date End Date Jamari Byrne MD [address] [place] [address] PCP - General Family Medicine 08/19/23 Land Surveying Manager Relationship Specialty Start Date End Date Jamari Byrne MD [address] [place] [address] PCP - General Family Medicine 08/19/23 Land Surveying Manager Relationship Specialty Start Date End Date Jamari Byrne MD [address] [facility], [place] [address] [place] [address] PCP - General 11/12/21 Jamari Byrne MD [address] [facility], [place] [address] [place] [address] PCP - [facility] PCP 10/07/22 Land Surveying Manager Relationship Specialty Start Date End Date Jamari Byrne MD [address] [place] [address] PCP - General Family Medicine 08/19/23 Land Surveying Manager Relationship Specialty Start Date End Date Jamari Byrne MD [address] [place] [address] PCP - General Family Medicine 08/19/23 Land Surveying Manager Relationship Specialty Start Date End Date Jamari Byrne MD [address] [place] [address] PCP - General Family Medicine 08/19/23 Land Surveying Manager Relationship Specialty Start Date End Date Jamari Byrne MD [address] [place] [address] PCP - General Family Medicine 08/19/23 Land Surveying Manager Relationship Specialty Start Date End Date Jamari Byrne MD [address] [place] [address] PCP - General Family Medicine 08/19/23 Land Surveying Manager Relationship Specialty Start Date End Date Jamari Byrne MD [address] [place] [address] PCP - General Family Medicine 08/19/23 Land Surveying Manager Relationship Specialty Start Date End Date Jamari Byrne MD [address] [place] [address] PCP - General Family Medicine 08/19/23 Land Surveying Manager Relationship Specialty Start Date End Date Jamari Byrne MD [address] [place] [address] PCP - General Family Medicine 08/19/23 Land Surveying Manager Relationship Specialty Start Date End Date Jamari Byrne MD [address] [place] [address] PCP - General Family Medicine 08/19/23 Land Surveying Manager Relationship Specialty Start Date End Date Jamari Byrne MD [address] [place] [address] PCP - General Family Medicine 08/19/23 Land Surveying Manager Relationship Specialty Start Date End Date Jamari Byrne MD [address] [place] [address] PCP - General Family Medicine 08/19/23 Land Surveying Manager Relationship Specialty Start Date End Date Jamari Byrne MD [address] [place] [phone] PCP - General Family Medicine 08/19/23 Land Surveying Manager Relationship Specialty Start Date End Date Jamari Byrne MD [address] [place] [phone] PCP - General Family Medicine 08/19/23 Land Surveying Manager Relationship Specialty Start Date End Date Jamari Byrne MD [address] [facility] [place] [address] PCP - General 11/12/21 Jamari Byrne MD [address] [facility], [facility] [address] [place] [address] PCP - Aaronjohnnie O PCP 10/07/22 Land Surveying Manager Relationship Specialty Start Date End Date Jamari Byrne MD [address] [place] [phone] PCP - General Family Medicine 08/19/23 Land Surveying Manager Relationship Specialty Start Date End Date Jamari Byrne MD [address] [place] [phone] PCP - General Family Medicine 08/19/23 Land Surveying Manager Relationship Specialty Start Date End Date Jamari Byrne MD [address] [place] [phone] PCP - General Family Medicine 08/19/23 Land Surveying Manager Relationship Specialty Start Date End Date Jamari Byrne MD [address] [place] [phone] PCP - General Family Medicine 08/19/23 Team [...] September 24, 2024 End: September 24, 2024 Land Surveying Manager Relationship Specialty Start Date End Date Jamari Byrne MD [address] [place] [phone] PCP - General Family Medicine 08/19/23 Land Surveying Manager Relationship Specialty Start Date End Date Jamari Byrne MD [address] [place] [phone] PCP - General Family Medicine 08/19/23 Land Surveying Manager Relationship Specialty Start Date End Date Jamari Byrne MD [address] [place] [phone] PCP - General Family Medicine 08/19/23 Land Surveying Manager Relationship Specialty Start Date End Date Jamari Byrne MD [address] [place] [phone] PCP - General Family Medicine 08/19/23 Land Surveying Manager Relationship Specialty Start Date End Date Jamari Byrne MD [address] [place] [phone] PCP - General Family Medicine 08/19/23 Land Surveying Manager Relationship Specialty Start Date End Date Jamari Byrne MD [address] [place] [address] PCP - General Family Medicine 08/19/23 Team Status: Inactive Member Role Status Dates Dr. Jamari Byrne MD Primary Care Provider Active Start: October 16, 2024 End: October 16, 2024 Mariaojse Nickerson CNM Attending Provider Active Start: October 16, 2024 End: October 16, 2024 Land Surveying Manager Relationship Specialty Start Date End Date Jamari Byrne MD [address] [place] [phone] PCP - General Family Medicine 08/19/23 Land Surveying Manager Relationship Specialty Start Date End Date Jamari Byrne MD [address] [place] [phone] PCP - General Family Medicine 08/19/23 Land Surveying Manager Relationship Specialty Start Date End Date Jamari Byrne MD [address] [place] [phone] PCP - General Family Medicine 08/19/23 Land Surveying Manager Relationship Specialty Start Date End Date Jamari Byrne MD [address] [place] [phone] PCP - General Family Medicine 08/19/23 Land Surveying Manager Relationship Specialty Start Date End Date Jamari Byrne MD [address] [place] [phone] PCP - General Family Medicine 08/19/23 Land Surveying Manager Relationship Specialty Start Date End Date Jamari Byrne MD [address] [place] [phone] PCP - General Family Medicine 08/19/23 Land Surveying Manager Relationship Specialty Start Date End Date Jamari Byrne MD [address] [place] [address] PCP - General Family Medicine 08/19/23 Land Surveying Manager Relationship Specialty Start Date End Date Jamari Byrne MD [address] [place] [phone] PCP - General Family Medicine 08/19/23 Land Surveying Manager Relationship Specialty Start Date End Date Jamari Byrne MD [address] [place] [phone] PCP - General Family Medicine 08/19/23 Land Surveying Manager Relationship Specialty Start Date End Date Jamari Byrne MD [address] [place] [phone] PCP - General Family Medicine 08/19/23 Land Surveying Manager Relationship Specialty Start Date End Date Jamari Byrne MD [address] [place] [phone] PCP - General Family Medicine 08/19/23 Land Surveying Manager Relationship Specialty Start Date End Date Jamari Byrne MD [address] [place] [phone] PCP - General Family Medicine 08/19/23 Land Surveying Manager Relationship Specialty Start Date End Date Jamari Byrne MD [address] [place] [phone] PCP - General Family Medicine 08/19/23 Land Surveying Manager Relationship Specialty Start Date End Date Jamari Byrne MD [address] [place] [address] PCP - General Family Medicine 08/19/23 Land Surveying Manager Relationship Specialty Start Date End Date Jamari Byrne MD [address] [place] [place] [address] PCP - General Family Medicine 08/19/23 Land Surveying Manager Relationship Specialty Start Date End Date Jamari Byrne MD [address] [place] [address] PCP - General Family Medicine 08/19/23 Team Status: Inactive Member Role Status Dates Dr. Jamari Byrne MD Primary Care Provider Active Start: November 15, 2024 End: November 15, 2024 Dr. Whit Patel MD Attending Provider Ac tive Start: November 15, 2024 End: November 15, 2024 Dr. Whit Patel MD Referring Provider Ac tive Start: November 15, 2024 End: November 15, 2024 Land Surveying Manager Relationship Specialty Start Date End Date Jamari Byrne MD [address] [place] [phone] PCP - General Family Medicine 08/19/23 Land Surveying Manager Relationship Specialty Start Date End Date Jamari Byrne MD [address] [place] [address] PCP - General Family Medicine 08/19/23 Land Surveying Manager Relationship Specialty Start Date End Date Jamari Byrne MD [address] [place] [address] PCP - General Family Medicine 08/19/23 Land Surveying Manager Relationship Specialty Start Date End Date Jamari Byrne MD [address] [place] [address] PCP - General Family Medicine 08/19/23 Land Surveying Manager Relationship Specialty Start Date End Date Jamari Byrne MD [address] [place] [address] PCP - General Family Medicine 08/19/23 Land Surveying Manager Relationship Specialty Start Date End Date Jamari Byrne MD [address] [place] [address] PCP - General Family Medicine 08/19/23 Land Surveying Manager Relationship Specialty Start Date End Date Jamari Byrne MD [address] [place] [address] PCP - General Family Medicine 08/19/23 Land Surveying Manager Relationship Specialty Start Date End Date Jamari Byrne MD [address] [place] [address] PCP - General Family Medicine 08/19/23 Team [...] December 16, 2024 End: December 16, 2024 Land Surveying Manager Relationship Specialty Start Date End Date Jamari Byrne MD [address] [place] [address] PCP - General Family Medicine 08/19/23 Land Surveying Manager Relationship Specialty Start Date End Date Jamari Byrne MD [address] [place] [phone] PCP - General Family Medicine 08/19/23 Team Status: Active Member Role/Relationship Status Dates Dr. Jamari Byrne MD Primary Care Provider Active Team Status: Inactive Member Role/Relationship Status Dates Dr. Jamari Byrne MD Primary Care Provider Active Start: January 20, 2025 End: January 21, 2025 Dr. Elie Mo DO Referring Provider Active Start: January 20, 2025 End: January 21, 2025 Dr. Elie Mo DO Emergency Provider Active Start: January 20, 2025 End: January 21, 2025 Land Surveying Manager Relationship Specialty Start Date End Date Jamari Byrne MD [address] [place] [phone] PCP - General Family Medicine 08/19/23 Source Comments (unrecognize d section and content) In the event this informatio n is protected by the Federal Confidentiality of Alcohol and Drug Abuse Patient Records regulations: The Federal rules restrict any use of the information to criminally investigate or prosecute any alcohol or drug abuse patient.[facility] the event this information is protected by the Federal Confidentiality of Alcohol and Drug Abuse Patient Records regulations: The Federal rules restrict any use of the information to criminally investigate or prosecute any alcohol or drug abuse patient.[facility]In the event this information is protected by the Federal Confidentiality of Alcohol and Drug Abuse Patient Records regulations: The Federal rules restrict any use of the information to criminally investigate or prosecute any alcohol or drug abuse patient.[facility]In the event this information is protected by the Federal Confidentiality of Alcohol and Drug Abuse Patient Records regulations: The Federal rules restrict any use of the information to criminally investigate or prosecute any alcohol or drug abuse patient.[facility]In the event this information is protected by the Federal Confidentiality of Alcohol and Drug Abuse Patient Records regulations: The Federal rules restrict any use of the information to criminally investigate or prosecute any alcohol or drug abuse patient.[facility] HospitalIn the event this information is protected by the Federal Confidentiality of Alcohol and Drug Abuse Patient Records regulations: The Federal rules restrict any use of the information to criminally investigate or prosecute any alcohol or drug abuse patient.[facility] HospitalIn the event this information is protected by the Federal Confidentiality of Alcohol and Drug Abuse Patient Records regulations: The Federal rules restrict any use of the information to criminally investigate or prosecute any alcohol or drug abuse patient.[facility] HospitalIn the event this information is protected by the Federal Confidentiality of Alcohol and Drug Abuse Patient Records regulations: The Federal rules restrict any use of the information to criminally investigate or prosecute any alcohol or drug abuse patient.[facility] HospitalIn the event this information is protected by the Federal Confidentiality of Alcohol and Drug Abuse Patient Records regulations: The Federal rules restrict any use of the information to criminally investigate or prosecute any alcohol or drug abuse patient.[facility] HospitalIn the event this information is protected by the Federal Confidentiality of Alcohol and Drug Abuse Patient Records regulations: The Federal rules restrict any use of the information to criminally investigate or prosecute any alcohol or drug abuse patient.[facility] HospitalIn the event this information is protected by the Federal Confidentiality of Alcohol and Drug Abuse Patient Records regulations: The Federal rules restrict any use of the information to criminally investigate or prosecute any alcohol or drug abuse patient.[facility] HospitalIn the event this information is protected by the Federal Confidentiality of Alcohol and Drug Abuse Patient Records regulations: The Federal rules restrict any use of the information to criminally investigate or prosecute any alcohol or drug abuse patient.[facility] HospitalIn the event this information is protected by the Federal Confidentiality of Alcohol and Drug Abuse Patient Records regulations: The Federal rules restrict any use of the information to criminally investigate or prosecute any alcohol or drug abuse patient.[facility] HospitalIn the event this information is protected by the Federal Confidentiality of Alcohol and Drug Abuse Patient Records regulations: The Federal rules restrict any use of the information to criminally investigate or prosecute any alcohol or drug abuse patient.[facility] HospitalIn the event this information is protected by the Federal Confidentiality of Alcohol and Drug Abuse Patient Records regulations: The Federal rules restrict any use of the information to criminally investigate or prosecute any alcohol or drug abuse patient.[facility] HospitalIn the event this information is protected by the Federal Confidentiality of Alcohol and Drug Abuse Patient Records regulations: The Federal rules restrict any use of the information to criminally investigate or prosecute any alcohol or drug abuse patient.[facility] HospitalIn the event this information is protected by the Federal Confidentiality of Alcohol and Drug Abuse Patient Records regulations: The Federal rules restrict any use of the information to criminally investigate or prosecute any alcohol or drug abuse patient.[facility] HospitalIn the event this information is protected by the Federal Confidentiality of Alcohol and Drug Abuse Patient Records regulations: The Federal rules restrict any use of the information to criminally investigate or prosecute any alcohol or drug abuse patient.[facility] HospitalIn the event this information is protected by the Federal Confidentiality of Alcohol and Drug Abuse Patient Records regulations: The Federal rules restrict any use of the information to criminally investigate or prosecute any alcohol or drug abuse patient.[facility] HospitalIn the event this information is protected by the Federal Confidentiality of Alcohol and Drug Abuse Patient Records regulations: The Federal rules restrict any use of the information to criminally investigate or prosecute any alcohol or drug abuse patient.[facility] HospitalIn the event this information is protected by the Federal Confidentiality of Alcohol and Drug Abuse Patient Records regulations: The Federal rules restrict any use of the information to criminally investigate or prosecute any alcohol or drug abuse patient.[facility] HospitalIn the event this information is protected by the Federal Confidentiality of Alcohol and Drug Abuse Patient Records regulations: The Federal rules restrict any use of the information to criminally investigate or prosecute any alcohol or drug abuse patient.[facility] HospitalIn the event this information is protected by the Federal Confidentiality of Alcohol and Drug Abuse Patient Records regulations: The Federal rules restrict any use of the information to criminally investigate or prosecute any alcohol or drug abuse patient.[facility] HospitalIn the event this information is protected by the Federal Confidentiality of Alcohol and Drug Abuse Patient Records regulations: The Federal rules restrict any use of the information to criminally investigate or prosecute any alcohol or drug abuse patient.[facility] HospitalIn the event this information is protected by the Federal Confidentiality of Alcohol and Drug Abuse Patient Records regulations: The Federal rules restrict any use of the information to criminally investigate or prosecute any alcohol or drug abuse patient.[facility] HospitalIn the event this information is protected by the Federal Confidentiality of Alcohol and Drug Abuse Patient Records regulations: The Federal rules restrict any use of the information to criminally investigate or prosecute any alcohol or drug abuse patient.[facility] HospitalIn the event this information is protected by the Federal Confidentiality of Alcohol and Drug Abuse Patient Records regulations: The Federal rules restrict any use of the information to criminally investigate or prosecute any alcohol or drug abuse patient.[facility] HospitalIn the event this information is protected by the Federal Confidentiality of Alcohol and Drug Abuse Patient Records regulations: The Federal rules restrict any use of the information to criminally investigate or prosecute any alcohol or drug abuse patient.[facility] HospitalIn the event this information is protected by the Federal Confidentiality of Alcohol and Drug Abuse Patient Records regulations: The Federal rules restrict any use of the information to criminally investigate or prosecute any alcohol or drug abuse patient.[facility] HospitalIn the event this information is protected by the Federal Confidentiality of Alcohol and Drug Abuse Patient Records regulations: The Federal rules restrict any use of the information to criminally investigate or prosecute any alcohol or drug abuse patient.[facility] HospitalIn the event this information is protected by the Federal Confidentiality of Alcohol and Drug Abuse Patient Records regulations: The Federal rules restrict any use of the information to criminally investigate or prosecute any alcohol or drug abuse patient.[facility] HospitalIn the event this information is protected by the Federal Confidentiality of Alcohol and Drug Abuse Patient Records regulations: The Federal rules restrict any use of the information to criminally investigate or prosecute any alcohol or drug abuse patient.[facility] HospitalIn the event this information is protected by the Federal Confidentiality of Alcohol and Drug Abuse Patient Records regulations: The Federal rules restrict any use of the information to criminally investigate or prosecute any alcohol or drug abuse patient.[facility] HospitalIn the event this information is protected by the Federal Confidentiality of Alcohol and Drug Abuse Patient Records regulations: The Federal rules restrict any use of the information to criminally investigate or prosecute any alcohol or drug abuse patient.[facility] HospitalIn the event this information is protected by the Federal Confidentiality of Alcohol and Drug Abuse Patient Records regulations: The Federal rules restrict any use of the information to criminally investigate or prosecute any alcohol or drug abuse patient.[facility] HospitalIn the event this information is protected by the Federal Confidentiality of Alcohol and Drug Abuse Patient Records regulations: The Federal rules restrict any use of the information to criminally investigate or prosecute any alcohol or drug abuse patient.[facility] HospitalIn the event this information is protected by the Federal Confidentiality of Alcohol and Drug Abuse Patient Records regulations: The Federal rules restrict any use of the information to criminally investigate or prosecute any alcohol or drug abuse patient.[facility] HospitalIn the event this information is protected by the Federal Confidentiality of Alcohol and Drug Abuse Patient Records regulations: The Federal rules restrict any use of the information to criminally investigate or prosecute any alcohol or drug abuse patient.[facility] HospitalIn the event this information is protected by the Federal Confidentiality of Alcohol and Drug Abuse Patient Records regulations: The Federal rules restrict any use of the information to criminally investigate or prosecute any alcohol or drug abuse patient.[facility] HospitalIn the event this information is protected by the Federal Confidentiality of Alcohol and Drug Abuse Patient Records regulations: The Federal rules restrict any use of the information to criminally investigate or prosecute any alcohol or drug abuse patient.[facility] HospitalIn the event this information is protected by the Federal Confidentiality of Alcohol and Drug Abuse Patient Records regulations: The Federal rules restrict any use of the information to criminally investigate or prosecute any alcohol or drug abuse patient.[facility] HospitalIn the event this information is protected by the Federal Confidentiality of Alcohol and Drug Abuse Patient Records regulations: The Federal rules restrict any use of the information to criminally investigate or prosecute any alcohol or drug abuse patient.[facility] HospitalIn the event this information is protected by the Federal Confidentiality of Alcohol and Drug Abuse Patient Records regulations: The Federal rules restrict any use of the information to criminally investigate or prosecute any alcohol or drug abuse patient.[facility] HospitalIn the event this information is protected by the Federal Confidentiality of Alcohol and Drug Abuse Patient Records regulations: The Federal rules restrict any use of the information to criminally investigate or prosecute any alcohol or drug abuse patient.[facility] HospitalIn the event this information is protected by the Federal Confidentiality of Alcohol and Drug Abuse Patient Records regulations: The Federal rules restrict any use of the information to criminally investigate or prosecute any alcohol or drug abuse patient.[facility] HospitalIn the event this information is protected by the Federal Confidentiality of Alcohol and Drug Abuse Patient Records regulations: The Federal rules restrict any use of the information to criminally investigate or prosecute any alcohol or drug abuse patient.[facility] HospitalIn the event this information is protected by the Federal Confidentiality of Alcohol and Drug Abuse Patient Records regulations: The Federal rules restrict any use of the information to criminally investigate or prosecute any alcohol or drug abuse patient.[facility] HospitalIn the event this information is protected by the Federal Confidentiality of Alcohol and Drug Abuse Patient Records regulations: The Federal rules restrict any use of the information to criminally investigate or prosecute any alcohol or drug abuse patient.[facility] HospitalIn the event this information is protected by the Federal Confidentiality of Alcohol and Drug Abuse Patient Records regulations: The Federal rules restrict any use of the information to criminally investigate or prosecute any alcohol or drug abuse patient.[facility] HospitalIn the event this information is protected by the Federal Confidentiality of Alcohol and Drug Abuse Patient Records regulations: The Federal rules restrict any use of the information to criminally investigate or prosecute any alcohol or drug abuse patient.[facility] HospitalIn the event this information is protected by the Federal Confidentiality of Alcohol and Drug Abuse Patient Records regulations: The Federal rules restrict any use of the information to criminally investigate or prosecute any alcohol or drug abuse patient.[facility] HospitalIn the event this information is protected by the Federal Confidentiality of Alcohol and Drug Abuse Patient Records regulations: The Federal rules restrict any use of the information to criminally investigate or prosecute any alcohol or drug abuse patient.[facility] HospitalIn the event this information is protected by the Federal Confidentiality of Alcohol and Drug Abuse Patient Records regulations: The Federal rules restrict any use of the information to criminally investigate or prosecute any alcohol or drug abuse patient.[facility] HospitalIn the event this information is protected by the Federal Confidentiality of Alcohol and Drug Abuse Patient Records regulations: The Federal rules restrict any use of the information to criminally investigate or prosecute any alcohol or drug abuse patient.[facility] HospitalIn the event this information is protected by the Federal Confidentiality of Alcohol and Drug Abuse Patient Records regulations: The Federal rules restrict any use of the information to criminally investigate or prosecute any alcohol or drug abuse patient.[facility] HospitalIn the event this information is protected by the Federal Confidentiality of Alcohol and Drug Abuse Patient Records regulations: The Federal rules restrict any use of the information to criminally investigate or prosecute any alcohol or drug abuse patient.[facility] HospitalIn the event this information is protected by the Federal Confidentiality of Alcohol and Drug Abuse Patient Records regulations: The Federal rules restrict any use of the information to criminally investigate or prosecute any alcohol or drug abuse patient.[facility] HospitalIn the event this information is protected by the Federal Confidentiality of Alcohol and Drug Abuse Patient Records regulations: The Federal rules restrict any use of the information to criminally investigate or prosecute any alcohol or drug abuse patient.[facility] HospitalIn the event this information is protected by the Federal Confidentiality of Alcohol and Drug Abuse Patient Records regulations: The Federal rules restrict any use of the information to criminally investigate or prosecute any alcohol or drug abuse patient.[facility] HospitalIn the event this information is protected by the Federal Confidentiality of Alcohol and Drug Abuse Patient Records regulations: The Federal rules restrict any use of the information to criminally investigate or prosecute any alcohol or drug abuse patient.[facility] HospitalIn the event this information is protected by the Federal Confidentiality of Alcohol and Drug Abuse Patient Records regulations: The Federal rules restrict any use of the information to criminally investigate or prosecute any alcohol or drug abuse patient.[facility] HospitalIn the event this information is protected by the Federal Confidentiality of Alcohol and Drug Abuse Patient Records regulations: The Federal rules restrict any use of the information to criminally investigate or prosecute any alcohol or drug abuse patient.[facility] HospitalIn the event this information is protected by the Federal Confidentiality of Alcohol and Drug Abuse Patient Records regulations: The Federal rules restrict any use of the information to criminally investigate or prosecute any alcohol or drug abuse patient.[facility] HospitalIn the event this information is protected by the Federal Confidentiality of Alcohol and Drug Abuse Patient Records regulations: The Federal rules restrict any use of the information to criminally investigate or prosecute any alcohol or drug abuse patient.[facility] HospitalIn the event this information is protected by the Federal Confidentiality of Alcohol and Drug Abuse Patient Records regulations: The Federal rules restrict any use of the information to criminally investigate or prosecute any alcohol or drug abuse patient.[facility] HospitalIn the event this information is protected by the Federal Confidentiality of Alcohol and Drug Abuse Patient Records regulations: The Federal rules restrict any use of the information to criminally investigate or prosecute any alcohol or drug abuse patient.[facility] HospitalIn the event this information is protected by the Federal Confidentiality of Alcohol and Drug Abuse Patient Records regulations: The Federal rules restrict any use of the information to criminally investigate or prosecute any alcohol or drug abuse patient.[facility] HospitalIn the event this information is protected by the Federal Confidentiality of Alcohol and Drug Abuse Patient Records regulations: The Federal rules restrict any use of the information to criminally investigate or prosecute any alcohol or drug abuse patient.[facility] HospitalIn the event this information is protected by the Federal Confidentiality of Alcohol and Drug Abuse Patient Records regulations: The Federal rules restrict any use of the information to criminally investigate or prosecute any alcohol or drug abuse patient.[facility] HospitalIn the event this information is protected by the Federal Confidentiality of Alcohol and Drug Abuse Patient Records regulations: The Federal rules restrict any use of the information to criminally investigate or prosecute any alcohol or drug abuse patient.[facility] HospitalIn the event this information is protected by the Federal Confidentiality of Alcohol and Drug Abuse Patient Records regulations: The Federal rules restrict any use of the information to criminally investigate or prosecute any alcohol or drug abuse patient.[facility] HospitalIn the event this information is protected by the Federal Confidentiality of Alcohol and Drug Abuse Patient Records regulations: The Federal rules restrict any use of the information to criminally investigate or prosecute any alcohol or drug abuse patient.[facility] HospitalIn the event this information is protected by the Federal Confidentiality of Alcohol and Drug Abuse Patient Records regulations: The Federal rules restrict any use of the information to criminally investigate or prosecute any alcohol or drug abuse patient.[facility] HospitalIn the event this information is protected by the Federal Confidentiality of Alcohol and Drug Abuse Patient Records regulations: The Federal rules restrict any use of the information to criminally investigate or prosecute any alcohol or drug abuse patient.[facility] HospitalIn the event this information is protected by the Federal Confidentiality of Alcohol and Drug Abuse Patient Records regulations: The Federal rules restrict any use of the information to criminally investigate or prosecute any alcohol or drug abuse patient.[facility] HospitalIn the event this information is protected by the Federal Confidentiality of Alcohol and Drug Abuse Patient Records regulations: The Federal rules restrict any use of the information to criminally investigate or prosecute any alcohol or drug abuse patient.[facility] HospitalIn the event this information is protected by the Federal Confidentiality of Alcohol and Drug Abuse Patient Records regulations: The Federal rules restrict any use of the information to criminally investigate or prosecute any alcohol or drug abuse patient.[facility] HospitalIn the event this information is protected by the Federal Confidentiality of Alcohol and Drug Abuse Patient Records regulations: The Federal rules restrict any use of the information to criminally investigate or prosecute any alcohol or drug abuse patient.[facility] HospitalIn the event this information is protected by the Federal Confidentiality of Alcohol and Drug Abuse Patient Records regulations: The Federal rules restrict any use of the information to criminally investigate or prosecute any alcohol or drug abuse patient.[facility] HospitalIn the event this information is protected by the Federal Confidentiality of Alcohol and Drug Abuse Patient Records regulations: The Federal rules restrict any use of the information to criminally investigate or prosecute any alcohol or drug abuse patient.[facility] HospitalIn the event this information is protected by the Federal Confidentiality of Alcohol and Drug Abuse Patient Records regulations: The Federal rules restrict any use of the information to criminally investigate or prosecute any alcohol or drug abuse patient.[facility] HospitalIn the event this information is protected by the Federal Confidentiality of Alcohol and Drug Abuse Patient Records regulations: The Federal rules restrict any use of the information to criminally investigate or prosecute any alcohol or drug abuse patient.[facility] HospitalIn the event this information is protected by the Federal Confidentiality of Alcohol and Drug Abuse Patient Records regulations: The Federal rules restrict any use of the information to criminally investigate or prosecute any alcohol or drug abuse patient.[facility] HospitalIn the event this information is protected by the Federal Confidentiality of Alcohol and Drug Abuse Patient Records regulations: The Federal rules restrict any use of the information to criminally investigate or prosecute any alcohol or drug abuse patient.[facility] HospitalIn the event this information is protected by the Federal Confidentiality of Alcohol and Drug Abuse Patient Records regulations: The Federal rules restrict any use of the information to criminally investigate or prosecute any alcohol or drug abuse patient.[facility] HospitalIn the event this information is protected by the Federal Confidentiality of Alcohol and Drug Abuse Patient Records regulations: The Federal rules restrict any use of the information to criminally investigate or prosecute any alcohol or drug abuse patient.[facility] HospitalIn the event this information is protected by the Federal Confidentiality of Alcohol and Drug Abuse Patient Records regulations: The Federal rules restrict any use of the information to criminally investigate or prosecute any alcohol or drug abuse patient.[facility] HospitalIn the event this information is protected by the Federal Confidentiality of Alcohol and Drug Abuse Patient Records regulations: The Federal rules restrict any use of the information to criminally investigate or prosecute any alcohol or drug abuse patient.[facility] HospitalIn the event this information is protected by the Federal Confidentiality of Alcohol and Drug Abuse Patient Records regulations: The Federal rules restrict any use of the information to criminally investigate or prosecute any alcohol or drug abuse patient.[facility] HospitalIn the event this information is protected by the Federal Confidentiality of Alcohol and Drug Abuse Patient Records regulations: The Federal rules restrict any use of the information to criminally investigate or prosecute any alcohol or drug abuse patient.[facility] HospitalIn the event this information is protected by the Federal Confidentiality of Alcohol and Drug Abuse Patient Records regulations: The Federal rules restrict any use of the information to criminally investigate or prosecute any alcohol or drug abuse patient.[facility] HospitalIn the event this information is protected by the Federal Confidentiality of Alcohol and Drug Abuse Patient Records regulations: The Federal rules restrict any use of the information to criminally investigate or prosecute any alcohol or drug abuse patient.[facility] HospitalIn the event this information is protected by the Federal Confidentiality of Alcohol and Drug Abuse Patient Records regulations: The Federal rules restrict any use of the information to criminally investigate or prosecute any alcohol or drug abuse patient.[facility] HospitalIn the event this information is protected by the Federal Confidentiality of Alcohol and Drug Abuse Patient Records regulations: The Federal rules restrict any use of the information to criminally investigate or prosecute any alcohol or drug abuse patient.[facility] HospitalIn the event this information is protected by the Federal Confidentiality of Alcohol and Drug Abuse Patient Records regulations: The Federal rules restrict any use of the information to criminally investigate or prosecute any alcohol or drug abuse patient.[facility] HospitalIn the event this information is protected by the Federal Confidentiality of Alcohol and Drug Abuse Patient Records regulations: The Federal rules restrict any use of the information to criminally investigate or prosecute any alcohol or drug abuse patient.[facility] HospitalIn the event this information is protected by the Federal Confidentiality of Alcohol and Drug Abuse Patient Records regulations: The Federal rules restrict any use of the information to criminally investigate or prosecute any alcohol or drug abuse patient.[facility] HospitalIn the event this information is protected by the Federal Confidentiality of Alcohol and Drug Abuse Patient Records regulations: The Federal rules restrict any use of the information to criminally investigate or prosecute any alcohol or drug abuse patient.[facility] HospitalIn the event this information is protected by the Federal Confidentiality of Alcohol and Drug Abuse Patient Records regulations: The Federal rules restrict any use of the information to criminally investigate or prosecute any alcohol or drug abuse patient.[facility] HospitalIn the event this information is protected by the Federal Confidentiality of Alcohol and Drug Abuse Patient Records regulations: The Federal rules restrict any use of the information to criminally investigate or prosecute any alcohol or drug abuse patient.[facility] HospitalIn the event this information is protected by the Federal Confidentiality of Alcohol and Drug Abuse Patient Records regulations: The Federal rules restrict any use of the information to criminally investigate or prosecute any alcohol or drug abuse patient.[facility] HospitalIn the event this information is protected by the Federal Confidentiality of Alcohol and Drug Abuse Patient Records regulations: The Federal rules restrict any use of the information to criminally investigate or prosecute any alcohol or drug abuse patient.[facility] HospitalIn the event this information is protected by the Federal Confidentiality of Alcohol and Drug Abuse Patient Records regulations: The Federal rules restrict any use of the information to criminally investigate or prosecute any alcohol or drug abuse patient.[facility] HospitalIn the event this information is protected by the Federal Confidentiality of Alcohol and Drug Abuse Patient Records regulations: The Federal rules restrict any use of the information to criminally investigate or prosecute any alcohol or drug abuse patient.[facility] HospitalIn the event this information is protected by the Federal Confidentiality of Alcohol and Drug Abuse Patient Records regulations: The Federal rules restrict any use of the information to criminally investigate or prosecute any alcohol or drug abuse patient.[facility] HospitalIn the event this information is protected by the Federal Confidentiality of Alcohol and Drug Abuse Patient Records regulations: The Federal rules restrict any use of the information to criminally investigate or prosecute any alcohol or drug abuse patient.[facility] HospitalIn the event this information is protected by the Federal Confidentiality of Alcohol and Drug Abuse Patient Records regulations: The Federal rules restrict any use of the information to criminally investigate or prosecute any alcohol or drug abuse patient.[facility] HospitalIn the event this information is protected by the Federal Confidentiality of Alcohol and Drug Abuse Patient Records regulations: The Federal rules restrict any use of the information to criminally investigate or prosecute any alcohol or drug abuse patient.[facility] HospitalIn the event this information is protected by the Federal Confidentiality of Alcohol and Drug Abuse Patient Records regulations: The Federal rules restrict any use of the information to criminally investigate or prosecute any alcohol or drug abuse patient.[facility] HospitalIn the event this information is protected by the Federal Confidentiality of Alcohol and Drug Abuse Patient Records regulations: The Federal rules restrict any use of the information to criminally investigate or prosecute any alcohol or drug abuse patient.[facility] HospitalIn the event this information is protected by the Federal Confidentiality of Alcohol and Drug Abuse Patient Records regulations: The Federal rules restrict any use of the information to criminally investigate or prosecute any alcohol or drug abuse patient.[facility] HospitalIn the event this information is protected by the Federal Confidentiality of Alcohol and Drug Abuse Patient Records regulations: The Federal rules restrict any use of the information to criminally investigate or prosecute any alcohol or drug abuse patient.[facility] HospitalIn the event this information is protected by the Federal Confidentiality of Alcohol and Drug Abuse Patient Records regulations: The Federal rules restrict any use of the information to criminally investigate or prosecute any alcohol or drug abuse patient.[facility] HospitalIn the event this information is protected by the Federal Confidentiality of Alcohol and Drug Abuse Patient Records regulations: The Federal rules restrict any use of the information to criminally investigate or prosecute any alcohol or drug abuse patient.[facility] HospitalIn the event this information is protected by the Federal Confidentiality of Alcohol and Drug Abuse Patient Records regulations: The Federal rules restrict any use of the information to criminally investigate or prosecute any alcohol or drug abuse patient.[facility] HospitalIn the event this information is protected by the Federal Confidentiality of Alcohol and Drug Abuse Patient Records regulations: The Federal rules restrict any use of the information to criminally investigate or prosecute any alcohol or drug abuse patient.[facility] Scheduled Active and Recently Administ ered [...] BE BASED ON THE PRIMARY CLINICAL RECORDS. [employer] provides no warranty or guarantee of the accuracy or completeness of information in this document.
[2025-01-23 22:36] LABS: Hematocrit 37.7 % (37-47); Hemoglobin 13.0 g/dL (12.0-15.0); Immature Granulocytes Count 0.010 X10^3/uL (0.0-0.0); Mean Corp Hgb Conc 34.5 g/dL (32-36); Mean Corpuscular Volume 82.5 fL (81-99); Mean Platelet Vol. 9.7 fl (6.2-12.0); NRBC Flagged by Analyzer 0 % (0-5); Platelet Count 317 K/mm3 (150-450); RBC Distribution Width CV 12.5 % (11.6-14.6); RBC Distribution Width SD 37.4 fl (35.1-43.9); Red Blood Count 4.57 M/mm3 (4.2-5.4); White Blood Count 7.6 K/mm3 (4.4-11.0)
[2025-01-23 22:46] LABS: Internal QC Validated? YES +Cl - CLEAR BKGD; Pregnancy, Serum, hCG Quali. NEGATIVE Negative; Record Kit Lot#, Serum Preg. 0000962302
[2025-01-23 23:05] LABS: Anion Gap 14 (5-15); BUN 10 mg/dL (4-19); BUN/Creat Ratio 18.5 RATIO (10-20); Calcium,Total 9.2 mg/dL (7.6-11.0); Carbon Dioxide 21.5 mmol/L (21.0-32.0); Chloride 102 mmol/L (98-108); Estimated Creatinine Clearance 158.08 ml/min (50-250); Glucose 229 mg/dL (70-99); Potassium 3.4 mmol/L (3.3-5.1)
[2025-01-23 23:07] VITALS: BP 136/63; PULSE 69; RESP 18; O2SAT 97
[2025-01-23 23:30] VITALS: BP 148/75; PULSE 74; RESP 16; TEMP 36.6; O2SAT 99
== END 2025-01-23 23:32 | disposition home or self-care (01) ==
PROVIDERS: Emergency Provider Emergency Medicine; PCP Family Medicine; Visit Provider Emergency Medicine
DX: R11.2 Nausea with vomiting, unspecified (principal); E11.65 Type 2 diabetes mellitus with hyperglycemia; Z79.4 Long term (current) use of insulin; Z90.49 Acquired absence of other specified parts of digestive tract; F41.9 Anxiety disorder, unspecified; Z79.899 Other long term (current) drug therapy; F17.210 Nicotine dependence, cigarettes, uncomplicated
CPT/HCPCS: 80048; 84703; 85025; 96360; 99283; A4216

== ENCOUNTER 2025-01-26 18:44 | Emergency (ER) | payer MEDICARE, MEDICAID, SELFPAY ==
[2025-01-26 18:44] VITALS: BP 145/94; PULSE 125; RESP 18; TEMP 37.1; O2SAT 98; BMI 35.6
[2025-01-26 18:55] VITALS: O2SAT 98
--- NOTE | 2025-01-26 19:15 | EDS_ITS ---
HPI History of Present Illness Chief Complaint: Nausea/Vomiting Detail of Chief Complaint: Nausea, vomiting, diarrhea Informant: patient Narrative Narrative: Patient presents with nausea and vomiting x 6 days. Her period started about 5 days ago. Patient gave on December 07. She denies abdominal pain. She started with some diarrhea yesterday. She has had no fever. Denies dysuria urgency or frequency. She states that she has vomited once or twice a day. No blood in her stool or vomit. Patient thought she was having .. Flu. [facility] Medical History Wears dentures Wears glasses Bipolar disorder Depression Anxiety Arthritis Gastric reflux Smoker Insulin dependent diabetes mellitus PONV (postoperative nausea and vomiting) Asthma Osteoarthritis Diabetes Home Medications ?Medication ?Instructions ?Recorded ?Last Taken ?Type buspirone 15 mg tablet 15 mg PO QDAY anxiety 12/16/24 History albuterol sulfate 90 mcg/actuation 1 - 2 puff inhalati on PRN PRN 11/15/24 11/01/24 15:57 History aerosol inhaler shortness of breath or wheez ing fluoxetine 20 mg capsule 20 mg PO DAILY anxiety 11/1512/16/24 History insulin lispro 100 unit/mL 8 unit subcut TID 12/16/24 Unknown History subcutaneous pen (Humalog KwikPen (U-100) Insulin) insulin NPH isoph U-100 human 100 20 unit subcut QHS 0 01/21/25 Unknown History unit/mL (3 mL) subcutaneous pen (Humulin N NPH U-100 Insulin KwikPen) ondansetron 4 mg disintegrating 4 mg PO Q6H PRN nausea and 01/23/25 Unknown Rx tablet vomiting #7 tabs promethazine 25 mg tablet 25 mg PO TID PRN nausea and 01/26/25 Unknown Rx vomiting #10 tabs Allergy/AdvReac Type Severity Reaction Status Date / Time aripiprazole (From Abilify) AdvReac Other Verified 01/26/25 18:44 metoclopramide (From Reglan) AdvReac Other Verified 01/26/25 18:44 ondansetron (From Zofran) AdvReac Vomiting Verified 01/26/25 18:44 quetiapine (From Seroquel) AdvReac Other Verified 01/26/25 18:44 sertraline (From Zoloft) AdvReac Other Verified 01/26/25 18:44 Family History Other Heart disease Hyperlipemia Surgical History History of dilation and curettage History of oral surgery History of cholecystectomy Social History Smoking Status: Current every day smoker tobacco type: cigarettes alcohol intake: never substance use type: does not use ROS ROS ED Review of Systems ROS Unobtainable: other Constitutional Constitutional ED: Reports lethargy; Denies chills, fever(s), sweats or weight loss Eyes Eyes: Denies blurry vision, change in vision or diplopia ENT ENT ED: Denies rhinorrhea or sore throat Cardiovascular Cardiovascular: Denies chest pain, orthopnea or racing heartbeat Respiratory/Chest Respiratory/Chest: Denies cough, dyspnea, dyspnea on exertion, orthopnea or sputum Gastrointestinal Gastrointestinal: Reports diarrhea, nausea and vomiting; Denies abdominal pain Genitourinary Genitourinary ED: Denies dysuria, hematuria or urinary frequency Musculoskeletal Musculoskeletal: Denies arthralgias, back pain, myalgias or neck pain Integumentary Denies abscess, Abrasions or rash Neurologic Neurologic: Denies headache(s) or weakness Psychiatric Psychiatric: Denies anxiety, depression or suicidal thoughts Endocrine Endocrinology: Denies polydipsia, polyphagia or polyuria Hematologic/Lymphatic Hematologic/Lymphatic: Denies easy bleeding, easy bruising or lymphadenopathy Allergic/Immunologic Allergic/Immunologic ED: Denies mouth swelling, tongue swelling or urticaria EXAM Physical Exam Const Vital Signs: 01/26/25 18:44 01/26/25 18:55 01/26/25 20:44 Temperature 98.8 F 97.9 F Temperature Source Oral Oral Pulse Rate 125 H 84 Respiratory Rate 18 18 Respiratory Effort Normal Non-Labored Short of Breath Respiratory Depth Normal Respiratory Pattern Normal Blood Pressure 145/94 H 132/77 H Blood Pressure Mean 111 95 Pulse Ox 98 100 Oxygen Delivery Method Room Air Room Air Room Air Positive well nourished and well developed General Appearance ED: well developed and NAD HEENT Reports TM's clear and moist mucous membranes normocephalic and atraumatic; Negative for trauma or tenderness Tympanic Membrane ED: Yes TM's clear Eyes PERRL and EOMs intact bilaterally General Eye ED: Negative for pale conjunctiva or scleral icterus Neck no lymphadenopathy, supple and no JVD General: Negative for tenderness Chest Wall inspection of chest normal and palpation of chest normal Chest: Negative for tenderness Resp normal respiratory effort and clear to auscultation bilaterally Effort and Inspection: Negative for respiratory distress or pain with movement Auscultation: Negative for rhonchi, wheezes or diminished lung sounds Cardio regular rate, regular rhythm, S1 normal heart sound, S2 normal heart sound and no murmurs Peripheral Pulses: pulses 2+ throughout GI normal to inspection, nondistended, normoactive bowel sounds, soft to palpation, non-tender, non-distended and no masses Back/Spine no CVA tenderness and no thoracic nor lumbar tenderness Extremity normal to inspection General Extremety ED: Negative for edema General Extremity: Negative for edema Neuro oriented x3, CN's II-XII intact bilaterally, no sensory deficits noted and gait normal Sensorium / Orientation: awake, alert, oriented to person, oriented to place and oriented to time Motor Exam: strength 5/5 throughout and strength abnormal Psych mental status grossly normal Skin no rashes or lesions noted and no wounds MDM MDM MDM Narrative Medical decision making narrative: Patient presents with nausea and vomiting as well as diarrhea. Clinically she looks well. She is approximately 7 weeks . Denies headache or vision change. Denies fever. IV line established. CBC with differential shows a white count of 10.3 with hemoglobin 12.7 and platelet count of 335. Chemistries unremarkable. LFTs showed a minimally elevated ALT of 44 her AST was normal at 25. hCG was negative. Urinalysis was normal. Patient received a liter normal saline fluid bolus. She did not want any thing for nausea while here. Etiology of symptoms unclear although I suspect possibly viral etiology. I will write her prescription for Phenergan for home. Recommend she follow-up with her primary care physician within next 3 to 5 days. Her repeat blood pressure improved to 132/77 and heart rate improved to 84. Very low suspicion for -induced hypertension or eclampsia given that she is 7 weeks . Lab Data Attestation: I reviewed the patient's lab results. Labs: Laboratory Results - last 24 hr 01/26/25 01/26/25 01/26/25 19:26 19:36 19:46 WBC 10.3 RBC 4.44 Hgb 12.7 Hct 37.0 MCV 83.3 MCH 28.6 MCHC 34.3 RDW Std Deviation 38.0 RDW Coeff of Linda 12.6 Plt Count 335 MPV 9.6 Immature Gran % (Auto) 0.300 Neut % (Auto) 76.2 H Lymph % (Auto) 16.9 L [place] % (Auto) 5.3 Eos % (Auto) 0.8 Baso % (Auto) 0.5 Absolute Neuts (auto) 7.9 H Absolute Lymphs (auto) 1.75 Nucleated RBC % 0 Sodium 137 Potassium 3.6 Chloride 101 Carbon Dioxide 17.5 L Anion Gap 19 H BUN 6 Creatinine 0.56 L Estim Creat Clear Calc 153.13 Est GFR (MDRD) Non-Af 127 BUN/Creatinine Ratio 10.6 Glucose 198 H Calcium 9.4 Total Bilirubin 0.51 AST 25 ALT 44 H Alkaline Phosphatase 99 Total Protein 7.5 Albumin 4.2 Globulin 3.3 Albumin/Globulin Ratio 1.3 Serum , Qual NEGATIVE Urine Color Yellow Urine Clarity Sl. Cloudy Urine pH 6.0 Ur Specific [place] 1.025 Urine Protein 30 H Urine Glucose (UA) Normal Urine Ketones 150 A* Urine Occult Blood 250 H Urine Nitrite Negative Urine Bilirubin Negative Urine Urobilinogen Normal Ur Leukocyte Esterase 25 H Urine RBC 10-25 SEEN Urine WBC 0-5 SEEN Ur Squamous Epith Cells 0-5 SEEN Urine Bacteria 0 SEEN Urine Mucus 0 SEEN Discharge Plan Triage Chief Complaint: Nausea/Vomiting Other Complaint: Shortness of Breath ED Provider: Shelia Ortega Dx/Rx/DC Orders Clinical Impression: Vomiting, Diarrhea Instructions: ED Diarrhea, Unknown Cause, ED Vomiting (Adult) Prescriptions: New promethazine 25 mg tablet 25 mg PO TID PRN (Reason: nausea and vomiting) Qty: 10 0RF No Action buspirone 15 mg tablet 15 mg PO QDAY albuterol sulfate 90 mcg/actuation HFA aerosol inhaler 1 - 2 puff inhalation PRN PRN (Reason: shortness of breath or wheezing) fluoxetine 20 mg capsule 20 mg PO DAILY insulin lispro [Humalog KwikPen Insulin] 100 unit/mL insulin pen 8 unit subcut TID Rx Instructions: ADDITIONAL 5 UNITS IF HIGH CARB MEAL CONSUMED Humulin N NPH Insulin KwikPen 100 unit/mL (3 mL) insulin pen 20 unit subcut QHS ondansetron 4 mg tablet,disintegrating 4 mg PO Q6H PRN (Reason: nausea and vomiting) Qty: 7 0RF Primary Care Provider: Jamari Byrne Referrals: Jamari Byrne MD [Primary Care Provider] - 3-5 Days Print Language: Montenegrin Disposition Disposition: Home, Self Care
[2025-01-26] MEDS: 0.9% Normal Saline (1000mL) 1,000 ML 1000 ML IV (19:35)
[2025-01-26 19:49] LABS: Mucous, Urine 0 SEEN /hpf (<or=2+)
[2025-01-26 19:50] LABS: Hematocrit 37.0 % (37-47); Hemoglobin 12.7 g/dL (12.0-15.0); Immature Granulocytes Count 0.030 X10^3/uL (0.0-0.0); Mean Corp Hgb Conc 34.3 g/dL (32-36); Mean Corpuscular Volume 83.3 fL (81-99); Mean Platelet Vol. 9.6 fl (6.2-12.0); NRBC Flagged by Analyzer 0 % (0-5); Platelet Count 335 K/mm3 (150-450); RBC Distribution Width CV 12.6 % (11.6-14.6); RBC Distribution Width SD 38.0 fl (35.1-43.9); Red Blood Count 4.44 M/mm3 (4.2-5.4); White Blood Count 10.3 K/mm3 (4.4-11.0)
[2025-01-26 19:51] LABS: Color, Urine Yellow (Yellow); Glucose, Dipstick Normal (Normal); Leukocyte Esterase-Dipstick 25 /ul (Negative); Nitrite-Dipstick Negative (Negative); Occult Blood-Urine 250 /ul (Negative); Protein-Dipstick 30 mg/dl (Negative); Specific Gravity, Urine 1.025 (1.002-1.030); Urine Bilirubin Dipstick Negative (Negative)
[2025-01-26 20:04] LABS: Internal QC Validated? YES +Cl - CLEAR BKGD; Pregnancy, Serum, hCG Quali. NEGATIVE Negative; Record Kit Lot#, Serum Preg. 962302
[2025-01-26 20:19] LABS: AST(SGOT) 25 U/L (<=31); Alanine Aminotransfer ALT/SGPT 44 U/L (<=34); Albumin, Serum 4.2 g/dL (3.5-5.0); Alkaline Phosphatase 99 U/L (35-104); Anion Gap 19 (5-15); BUN 6 mg/dL (4-19); BUN/Creat Ratio 10.6 RATIO (10-20); Calcium,Total 9.4 mg/dL (7.6-11.0); Carbon Dioxide 17.5 mmol/L (21.0-32.0); Chloride 101 mmol/L (98-108); Estimated Creatinine Clearance 153.13 ml/min (50-250); Globulin 3.3 g/dL (2.2-4.2); Glucose 198 mg/dL (70-99); Potassium 3.6 mmol/L (3.3-5.1)
[2025-01-26 20:44] VITALS: BP 132/77; PULSE 84; RESP 18; TEMP 36.6; O2SAT 100
[2025-01-26 21:18] LABS: Ketone-Dipstick 150 mg/dl (Negative)
[2025-01-26 21:20] LABS: Red Blood Cells-Urine 10-25 SEEN /hpf (0-5)
[2025-01-26 21:21] LABS: Squamous Epithelial Cells - UA 0-5 SEEN /hpf (5-10)
[2025-01-26 22:00] VITALS: BP 132/89; PULSE 89; RESP 16; TEMP 36.6; O2SAT 97
== END 2025-01-26 22:08 | disposition home or self-care (01) ==
PROVIDERS: Emergency Provider Emergency Medicine; PCP Family Medicine; Visit Provider Emergency Medicine
DX: R11.2 Nausea with vomiting, unspecified (principal); F31.9 Bipolar disorder, unspecified; E11.9 Type 2 diabetes mellitus without complications; Z79.4 Long term (current) use of insulin; R19.7 Diarrhea, unspecified; R06.02 Shortness of breath; K21.9 Gastro-esophageal reflux disease without esophagitis; J45.909 Unspecified asthma, uncomplicated; Z79.899 Other long term (current) drug therapy; F17.210 Nicotine dependence, cigarettes, uncomplicated
CPT/HCPCS: 80053; 81001; 84703; 85025; 96360; 96361; 99284; A4216

== ENCOUNTER 2025-04-20 16:48 | Inpatient (IN) | payer MEDICARE, MEDICAID, SELFPAY ==
[2025-04-20] VITALS (7 sets, daily range): BP systolic 104–151; BP diastolic 54–106; PULSE 92–133; RESP 20–30; TEMP 34.6–36.9; O2SAT 92–100; BMI 27.6
--- NOTE | 2025-04-20 18:23 | EX.ED.DYSGE1 ---
HPI History of Present Illness Chief Complaint: General Illness Narrative Narrative: 30-year-old female past medical history of diabetes, on medication, bipolar disorder, presents with her significant other with nausea and vomiting that she has had for the last week. Has been worse over the last few days. She states she feels generally weak and dehydrated. States when she tries to stand, her legs feel like Jell-O. She and her significant other states that she has tried to have p.o. intake and popsicles, but continues to vomit. This has been ongoing for a week. She has vomited 3 times in the last 24 hours, no hematemesis, no fevers or chills, no cough, no exacerbating or alleviating factors. She denies diarrhea or abdominal pain. She does not take insulin and states she only takes oral metformin but has been unable to take it because of her nausea and vomiting. Denies marijuana use. [facility] Medical History (Updated 04/20/25 @ 23:[address] Ariadne Hobbs MD) Anxiety and depression Former smoker Wears dentures Wears glasses Bipolar disorder Gastric reflux Insulin dependent diabetes mellitus Asthma Osteoarthritis Diabetes Home Medications ?Medication ?Instructions ?Recorded ?Last Taken ?Type fluoxetine 20 mg capsule 20 mg PO DAILY anxiety 11/15/24 12/16/24 History glipizide 5 mg tablet 5 mg PO BID dm 04/20/25 Unknown History metformin 500 mg tablet 500 mg PO BID dm 04/20/25 Unknown History Allergy/AdvReac Type Severity Reaction Status Date / Time aripiprazole (From Abilify) AdvReac Other Verified 04/20/25 16:55 metoclopramide (From Reglan) AdvReac Other Verified 04/20/25 16:55 ondansetron (From Zofran) AdvReac Vomiting Verified 04/20/25 16:55 quetiapine (From Seroquel) AdvReac Other Verified 04/20/25 16:55 sertraline (From Zoloft) AdvReac Other Verified 04/20/25 16:55 Family History (Updated 04/20/25 @ 23:[address] Ariadne Hobbs MD) Father Heart disease Hyperlipemia Mother COPD (chronic obstructive pulmonary disease) Surgical History History of dilation and curettage History of oral surgery History of cholecystectomy Social History (Updated 04/20/25 @ 23:[address] Ariadne Hobbs MD) household members: none Smoking Status: Former smoker alcohol intake: never substance use type: does not use ROS ROS ED ROS Narrative Review of systems positive for nausea and vomiting x 1 week, 3 episodes, nonbloody, in the last 24 hours, no diarrhea or abdominal pain. Denies fevers or chills. Reports generalized weakness and weak legs. EXAM Physical Exam Narrative Exam Narrative: Afebrile. Vital signs noted. Nontoxic-appearing. HEENT examination shows dry mucous membranes. Lungs are clear to auscultation bilaterally. Cardiovascular examination regular tachycardia. Abdomen is soft and nontender without guarding or rebound. No epigastric tenderness. Positive bowel sounds. Neurological examination nonfocal, nonlateralizing. Const Vital Signs: 04/20/25 16:51 04/20/25 18:54 04/20/25 19:03 Temperature 98.4 F 97.4 F L Temperature Source Oral Oral Pulse Rate 133 H 130 H Respiratory Rate 20 H 29 H Respiratory Pattern Tachypnea Blood Pressure 112/68 151/106 H Blood Pressure Mean 82 121 Pulse Ox 100 100 Oxygen Delivery Method Room Air 04/20/25 19:52 04/20/25 21:00 04/20/25 22:00 Temperature 97.3 F L 94.3 F L 94.7 F L Temperature Source Oral Rectal Core Pulse Rate 106 H 101 H 95 Respiratory Rate 30 H 26 H 30 H Respiratory Pattern Blood Pressure 143/81 H 151/76 H 116/74 Blood Pressure Mean 101 92 87 Pulse Ox 100 100 94 Oxygen Delivery Method Room Air Room Air Room Air MDM MDM MDM Narrative Medical decision making narrative: Differential diagnosis includes but not limited to pancreatitis versus gastritis versus dehydration versus other electrolyte abnormality. I doubt honk. Patient will be bolused IV fluids secondary to her tachycardia. CBC, CMP, and lipase will be obtained as well as serum . She has multiple allergies to antiemetics including Reglan and Zofran however, her Zofran allergy is vomiting. As she is not actively vomiting, I will forego antiemetics for now. In review of her CBC, she has a leukocytosis of 23.5 with hemoglobin hemoconcentrated 17.2, hematocrit 47.7, platelet count normal at 306. Serum test is negative. Lipase normal at 26 so I doubt pancreatitis. Her CMP shows sodium low at 128 with chloride 90. Carbon dioxide is low at 5.3. I am unsure as to this being a lab error, so ABG will be drawn. BUN normal at 12 and creatinine 0.73, glucose is elevated at 309 and anion gap elevated at 33. I will add a beta hydroxybutyrate. Her lactic acid is elevated at 6.3. I am unsure if this is secondary to sepsis versus dehydration. She will be bolused 30 mL/kg as her lactic acid is above 4. In review of her ABG, her pH is 7.0 with a pCO2 low at 7.7 and pO2 140. As her blood sugar is elevated in the 300s and she has an anion gap of 33, I entered DKA order set including insulin drip. I will discuss the patient with the hospitalist, Dr. Ariadne Hobbs for admission to the ICU. Diagnosis diabetic ketoacidosis, UTI, sepsis. Critical care time 31 minutes including time spent arranging admission, speaking with consultants, and bedside care. I did review her urinalysis, and she has greater than 100 WBCs. She was started on Rocephin 2 g. Disposition is admitted in guarded condition. Additionally, I was told by RN previous temporal artery temperatures are currently not picking up. She performed a rectal temperature and it is low at 94.4. She was placed on a Berta hugger and admitted to the ICU. History & Record Review Discussion w/independent historian: Patient and Significant other Lab Data Attestation: I reviewed the patient's lab results. Labs: Laboratory Results - last 24 hr 04/20/25 04/20/25 04/20/25 18:31 18:38 19:41 WBC 23.5 H RBC 6.05 H Hgb 17.2 H Hct 47.7 H MCV 78.8 L MCH 28.4 MCHC 36.1 H RDW Std Deviation 34.9 L RDW Coeff of Linda 12.5 Plt Count 306 MPV 10.2 Immature Gran % (Auto) 0.800 Neut % (Auto) 82.0 H Lymph % (Auto) 11.4 L [place] % (Auto) 5.2 Eos % (Auto) 0.2 Baso % (Auto) 0.4 Absolute Neuts (auto) 19.3 H Absolute Lymphs (auto) 2.67 Nucleated RBC % 0.1 Sodium 128 L Potassium 3.5 Chloride 90 L Carbon Dioxide 5.3 L* Anion Gap 33 H BUN 12 Creatinine 0.73 Estim Creat Clear Calc 102.29 Est GFR (MDRD) Non-Af 114 BUN/Creatinine Ratio 16.6 Glucose 309 H Lactic Acid 6.3 H* Calcium 9.3 Phosphorus Magnesium Total Bilirubin 0.82 AST 35 H ALT 312 H Alkaline Phosphatase 86 Total Protein 8.0 Albumin 4.5 Globulin 3.5 Albumin/Globulin Ratio 1.3 Lipase 26 b-Hydroxybutyric mmol/L 7.9 H Serum , Qual NEGATIVE Urine Color Yellow Urine Clarity Turbid Urine pH 5.0 Ur Specific [place] 1.025 Urine Protein 100 H Urine Glucose (UA) 1000 H Urine Ketones 150 A* Urine Occult Blood 50 H Urine Nitrite Negative Urine Bilirubin Negative Urine Urobilinogen Normal Ur Leukocyte Esterase 100 H Urine RBC 0-5 SEEN Urine WBC >100 SEEN Ur Squamous Epith Cells 0-5 SEEN Urine Bacteria 4+ Urine Mucus 0 SEEN POC Glucose 04/20/25 04/20/25 21:54 22:07 WBC RBC Hgb Hct MCV MCH MCHC RDW Std Deviation RDW Coeff of Linda Plt Count MPV Immature Gran % (Auto) Neut % (Auto) Lymph % (Auto) [place] % (Auto) Eos % (Auto) Baso % (Auto) Absolute Neuts (auto) Absolute Lymphs (auto) Nucleated RBC % Sodium 132 L Potassium 3.7 Chloride 97 L Carbon Dioxide 2.2 L* Anion Gap 33 H BUN Creatinine Estim Creat Clear Calc Est GFR (MDRD) Non-Af BUN/Creatinine Ratio Glucose Lactic Acid Calcium Phosphorus 4.4 Magnesium 2.2 Total Bilirubin AST ALT Alkaline Phosphatase Total Protein Albumin Globulin Albumin/Globulin Ratio Lipase b-Hydroxybutyric mmol/L Serum , Qual Urine Color Urine Clarity Urine pH Ur Specific [place] Urine Protein Urine Glucose (UA) Urine Ketones Urine Occult Blood Urine Nitrite Urine Bilirubin Urine Urobilinogen Ur Leukocyte Esterase Urine RBC Urine WBC Ur Squamous Epith Cells Urine Bacteria Urine Mucus POC Glucose 332 H ABG Data ABG results: ABG 04/20/25 21:01 Specimen Type ART Sample Site L Radial pH 7.01 L* Bicarbonate Actual 1.9 L Total CO2 < 5 Base Excess -29 L O2 Saturation 98 ABG pCO2 7.7 L* ABG pO2 140 H Miguel Angel Test Positive O2 Delivery Device Room Air Vent Mode Not entered Crit Call To/Read Back Yes Blood Gas Notified Whom Denise Blood Gas Notified Time 21:02:36 Radiography Diagnostic Testing: Clinical Impression(s) from Imaging Studies Chest X-Ray 04/20/25 19:25 IMPRESSION: No focal consolidations. Reading Location: [facility] Management Discussion w/another healthcare provider: Hospitalist (Dr. Ariadne Hobbs) Critical Care Time Critical Care Time: Yes Critical care time (excluding procedures): 30-74 minutes (31), Including time spent:, Discussing w/Patient &/or Family/Chemical Production Technician, Discussing w/Consultants, Arranging Admission or Transfer and Performing Direct Patient Care at Bedside Discharge Plan Dx/Rx/DC Orders Clinical Impression: Diabetic ketoacidosis, Sepsis, UTI (urinary tract infection) Disposition Disposition: [facility] D/C Safety Score for UGIB Assessment Adrian-Blatchford Bleeding Score (GBS): Stratifies upper GI bleeding patients who are low-risk and candidates for outpatient management. Hemoglobin, BUN, Recent Vital Signs: Hgb 17.2 g/dL (12.0-15.0) H 04/20/25 18:31 BUN 12 mg/dL (4-19) 04/20/25 18:31 Pulse Rate 95 Blood Pressure 116/74 Score Interpretation: Score of 0: A GBS of 0 is a ?Low Risk? GI bleed, and is highly sensitive (99.6% in a 2007 retrospective study) for predicting which patients did not require any ?medical intervention?: blood transfusion, endoscopy, or surgery. This was confirmed in a 2009 Lanc study where patients with a score of 0 were actually discharged and had no GI bleeding mortality at 6 month followup Score above 0: A GBS greater than zero suggests a ?High Risk? GI bleed that is likely to require ?medical intervention?: transfusion, endoscopy, or surgery. A higher GBS also correlated with a higher likelihood of needing intervention Scores >/= 6 are associated with >50% risk of needing intervention D/C Safety Score for LGIB Assessment Assessment Tool: Readmission and adverse event risk in patients with acute lower GI bleeding. Hemoglobin and Recent Vital Signs: Hgb 17.2 g/dL (12.0-15.0) H 04/20/25 18:31 Pulse Rate 95 04/20/25 22:00 Blood Pressure 116/74 04/20/25 22:00 Score Interpretation: Probability Percentage of safe discharge (absence of rebleeding, blood transfusion, therapeutic intervention, 28 day readmission, or ) Score of 8 or below: Consider discharge, with appropriate precautions. Score of 9 or above: Discharge NOT recommended. Consider admission with further workup and resuscitation as necessary.
[2025-04-20 18:43] LABS: Mucous, Urine 0 SEEN /hpf (<or=2+)
[2025-04-20] MEDS: 0.9% Normal Saline (1000mL) 1,000 ML 999 ML IV ×3 (18:47→22:14)
[2025-04-20 18:51] LABS: Hematocrit 47.7 % (37-47); Hemoglobin 17.2 g/dL (12.0-15.0); Immature Granulocytes Count 0.190 X10^3/uL (0.0-0.0); Mean Corp Hgb Conc 36.1 g/dL (32-36); Mean Corpuscular Volume 78.8 fL (81-99); Mean Platelet Vol. 10.2 fl (6.2-12.0); NRBC Flagged by Analyzer 0.1 % (0-5); Platelet Count 306 K/mm3 (150-450); RBC Distribution Width CV 12.5 % (11.6-14.6); RBC Distribution Width SD 34.9 fl (35.1-43.9); Red Blood Count 6.05 M/mm3 (4.2-5.4); White Blood Count 23.5 K/mm3 (4.4-11.0)
[2025-04-20 19:17] LABS: Internal QC Validated? YES +Cl - CLEAR BKGD; Pregnancy, Serum, hCG Quali. NEGATIVE Negative; Record Kit Lot#, Serum Preg. 980607
--- NOTE | 2025-04-20 19:25 | RAD_ITS ---
PROCEDURE: CHEST 1 VIEW (PORTABLE) 04/20/2025 REASON FOR EXAM: LEUKOCYTOSIS TECHNIQUE: Frontal view of the chest. FINDINGS: No focal consolidation. No pleural effusion or pneumothorax. Cardiac silhouette is within normal limits. No acute fractures. RAD/Chest 1 View (Portable) IMPRESSION: No focal consolidations. Reading Location: [facility]
[2025-04-20 19:28] LABS: Lipase 26 U/L (13-75)
[2025-04-20 19:59] LABS: AST(SGOT) 35 U/L (<=31); Alanine Aminotransfer ALT/SGPT 312 U/L (<=34); Albumin, Serum 4.5 g/dL (3.5-5.0); Alkaline Phosphatase 86 U/L (35-104); Anion Gap 33 (5-15); BUN 12 mg/dL (4-19); BUN/Creat Ratio 16.6 RATIO (10-20); Calcium,Total 9.3 mg/dL (7.6-11.0); Carbon Dioxide 5.3 mmol/L (21.0-32.0); Chloride 90 mmol/L (98-108); Estimated Creatinine Clearance 102.29 ml/min (50-250); Globulin 3.5 g/dL (2.2-4.2); Glucose 309 mg/dL (70-99); Potassium 3.5 mmol/L (3.3-5.1)
[2025-04-20 20:12] LABS: Color, Urine Yellow (Yellow); Glucose, Dipstick 1000 mg/dl (Normal); Leukocyte Esterase-Dipstick 100 /ul (Negative); Nitrite-Dipstick Negative (Negative); Occult Blood-Urine 50 /ul (Negative); Protein-Dipstick 100 mg/dl (Negative); Specific Gravity, Urine 1.025 (1.002-1.030); Urine Bilirubin Dipstick Negative (Negative)
[2025-04-20 20:27] LABS: Ketone-Dipstick 150 mg/dl (Negative)
[2025-04-20 21:04] LABS: Allen Test Positive; Base Excess -29 mmol/L (-2 to +2); PO2 140 mmHG (75-100); SITE L Radial; SO2 98 % (94-98)
[2025-04-20 21:50] LABS: Red Blood Cells-Urine 0-5 SEEN /hpf (0-5); Squamous Epithelial Cells - UA 0-5 SEEN /hpf (5-10)
--- NOTE | 2025-04-20 22:07 | PCM.HP.STD ---
HPI - General General Date of Admission: 04/20/25 Date of Service: 04/20/25 Chief Complaint: Intractable N/V. HPI Narrative The patient is a 30 y/o F w/ PMHx: Former tobacco use, Asthma, IDDM, Anxiety and Depression/Bipolar disorder, GERD who presents to the [facility] ED on 04/20/25 with onset significant nausea and emesis over the last week worse over the last 24 to 40 hours with increasing fatigue and malaise with dehydrated sensation given GI losses and inability to maintain appropriate oral intake with no recent fevers or chills nor any URI type symptoms on metformin only but unable to take it recently secondary to her GI losses. Patient does report increased urinary frequency. Workup in the ED included T98.4, heart 133, BP 112/68, respiratory rate 20, 100% on room air with most recent repeat vitals T94.3 Rectal, heart rate 101, BP 151/76, respiratory rate 26, 100% room air, CBC with WBC 23.5, hemoglobin 17.2, MCV 78.8, platelet 306 with left shift, ABG with pH 7.01, bicarb 102, pCO2 7.7, pO2 140, CMP with sodium 128, chloride 90, carbon oxide 5.3, anion gap 33, glucose 309, lactic acid 6.3, hepatic profile with AST/LT 35/312, serum testing negative, lipase 26, beta hydroxybutyrate acid pending upon evaluation, urinalysis with turbid appearing urine, specific remedy elevated 1.025, protein 100, glucose thousand, ketone 150, occult blood 50, leukocyte esterase 100, negative nitrate, urine WBCs greater than 104+ urine bacteria, blood culture x 2 pending per ED, urine culture pending per ED. In the ED patient initiated on 2 L normal saline bolus as well as insulin drip as well as IV Rocephin. Mag and Phos ordered stat per ED and pending upon evaluation. [facility] Medical History (Updated 04/20/25 @ 23:[address] Ariadne Hobbs MD) Anxiety and depression Former smoker Wears dentures Wears glasses Bipolar disorder Gastric reflux Insulin dependent diabetes mellitus Asthma Osteoarthritis Diabetes Home Medications ?Medication ?Instructions ?Recorded ?Last Taken ?Type fluoxetine 20 mg capsule 20 mg PO DAILY anxiety 11/15/24 12/16/24 History glipizide 5 mg tablet 5 mg PO BID dm 04/20/25 Unknown History metformin 500 mg tablet 500 mg PO BID dm 04/20/25 Unknown History Allergy/AdvReac Type Severity Reaction Status Date / Time aripiprazole (From Abilify) AdvReac Other Verified 04/20/25 16:55 metoclopramide (From Reglan) AdvReac Other Verified 04/20/25 16:55 ondansetron (From Zofran) AdvReac Vomiting Verified 04/20/25 16:55 quetiapine (From Seroquel) AdvReac Other Verified 04/20/25 16:55 sertraline (From Zoloft) AdvReac Other Verified 04/20/25 16:55 Family History (Updated 04/20/25 @ 23:[address] Ariadne Hobbs MD) Father Heart disease Hyperlipemia Mother COPD (chronic obstructive pulmonary disease) Surgical History History of dilation and curettage History of oral surgery History of cholecystectomy Social History (Updated 04/20/25 @ 23:[address] Ariadne Hobbs MD) household members: none Smoking Status: Former smoker alcohol intake: never substance use type: does not use ROS ROS Narrative Admission Review of Systems: CONSTITUTIONAL: No weight loss, fever, chills, + weakness or fatigue. HEENT: Eyes: No visual loss, blurred vision, double vision or yellow sclerae. Ears, Nose, Throat: No hearing loss, sneezing, congestion, runny nose or sore throat. SKIN: No rash or itching, lesions, wounds. CARDIOVASCULAR: No chest pain, chest pressure or chest discomfort, palpitations, edema, orthopnea, syncopal events. RESPIRATORY: No shortness of breath, cough or sputum, wheezing, hemoptysis. GASTROINTESTINAL: + anorexia, nausea, vomiting. No diarrhea, abdominal pain, melena, BRBPR. GENITOURINARY: + Notable increased urinary frequency. No dysuria, urgency or retention. NEUROLOGICAL: No headache, dizziness, syncope, paralysis, ataxia, numbness or tingling in the extremities, focal weakness, change in bowel or bladder control, seizure. MUSCULOSKELETAL: + muscle, back pain, joint pain or stiffness. HEMATOLOGIC: No anemia, bleeding or bruising. LYMPHATICS: No enlarged nodes. No history of splenectomy. PSYCHIATRIC: + History of anxiety and depression/bipolar disorder. ENDOCRINOLOGIC: No reports of sweating, cold or heat intolerance. + polyuria or polydipsia. ALLERGIES:+ History of asthma. Vital Signs Vital Signs Vital Signs: 04/20/25 16:51 04/20/25 18:54 04/20/25 19:03 Temperature 98.4 F 97.4 F L Temperature Source Oral Oral Pulse Rate 133 H 130 H Respiratory Rate 20 H 29 H Respiratory Pattern Tachypnea Blood Pressure 112/68 151/106 H Blood Pressure Mean 82 121 Pulse Ox 100 100 Oxygen Delivery Method Room Air 04/20/25 19:52 04/20/25 21:00 Temperature 97.3 F L 94.3 F L Temperature Source Oral Rectal Pulse Rate 106 H 101 H Respiratory Rate 30 H 26 H Respiratory Pattern Blood Pressure 143/81 H 151/76 H Blood Pressure Mean 101 92 Pulse Ox 100 100 Oxygen Delivery Method Room Air Room Air Weight Weight: 151 lb 3.794 oz Body Mass Index (BMI) 27.6 Physical Exam Narrative Physical Examination: General: Awake, alert, oriented to self, place and recent events, very dry mouth and does have slow speech, remains cooperative, laying in ED bed, ill, fatigued appearing Skin: Normal color, normal turgor, no icterus, no cyanosis except occasional stage ecchymoses, abrasion. HEENT: AT/NC, EOMI, PERRLA, dry MM, significant thrush evident, no carotid bruits or JVD noted, lacking upper dentition. Lungs: Diminished, greater bases, mildly increased respiratory rate but no distress, no rales, ronchi or wheezing. Heart: Improved, regular rate and rhythm; no gallop, rub audible. Abdomen: Soft, suprapubic discomfort to palpation otherwise abdomen NTTP, ND, hyperactive BS, no HSM. Extremities: No cyanosis, no clubbing, no significant distal edema. Neurological: Patient awake, alert, oriented as noted but slow responses, cognitive function suspect improving but still not baseline intact; pupils equally reactive to light and accommodation, cranial nerves grossly normal, moving all 4 extremities, no focal deficits, strength severely globally decreased. Psychiatric: Affect appears flat, fatigued, ill-appearing, no acute evidence of depressive or anxiety feelings but does have underlying history. Results Lab / Micro Data 04/20/25 18:31 04/20/25 22:07 Labs: Laboratory Results - last 24 hr 04/20/25 18:31: WBC 23.5 H, RBC 6.05 H, Hgb 17.2 H, Hct 47.7 H, MCV 78.8 L, MCH 28.4, MCHC 36.1 H, RDW Std Deviation 34.9 L, RDW Coeff of Linda 12.5, Plt Count 306, MPV 10.2, Immature Gran % (Auto) 0.800, Neut % (Auto) 82.0 H, Lymph % (Auto) 11.4 L, [place] % (Auto) 5.2, Eos % (Auto) 0.2, Baso % (Auto) 0.4, Absolute Neuts (auto) 19.3 H, Absolute Lymphs (auto) 2.67, Nucleated RBC % 0.1, Sodium 128 L, Potassium 3.5, Chloride 90 L, Carbon Dioxide 5.3 L*, Anion Gap 33 H, BUN 12, Creatinine 0.73, Estim Creat Clear Calc 102.29, Est GFR (MDRD) Non-Af 114, BUN/Creatinine Ratio 16.6, Glucose 309 H, Calcium 9.3, Total Bilirubin 0.82, AST 35 H, ALT 312 H, Alkaline Phosphatase 86, Total Protein 8.0, Albumin 4.5, Globulin 3.5, Albumin/Globulin Ratio 1.3, Lipase 26, Serum , Qual NEGATIVE 04/20/25 18:38: Urine Color Yellow, Urine Clarity Turbid, Urine pH 5.0, Ur Specific [place] 1.025, Urine Protein 100 H, Urine Glucose (UA) 1000 H, Urine Ketones 150 A*, Urine Occult Blood 50 H, Urine Nitrite Negative, Urine Bilirubin Negative, Urine Urobilinogen Normal, Ur Leukocyte Esterase 100 H, Urine RBC 0-5 SEEN, Urine WBC >100 SEEN, Ur Squamous Epith Cells 0-5 SEEN, Urine Bacteria 4+, Urine Mucus 0 SEEN 04/20/25 19:41: Lactic Acid 6.3 H* ABG Data ABG results: ABG 04/20/25 21:01 Specimen Type ART Sample Site L Radial pH 7.01 L* Bicarbonate Actual 1.9 L Total CO2 < 5 Base Excess -29 L O2 Saturation 98 ABG pCO2 7.7 L* ABG pO2 140 H Miguel Angel Test Positive O2 Delivery Device Room Air Vent Mode Not entered Crit Call To/Read Back Yes Blood Gas Notified Whom Denise Blood Gas Notified Time 21:02:36 Imaging Radiology Impression Chest X-Ray 04/20/25 19:25 IMPRESSION: No focal consolidations. Reading Location: [facility] Assessment & Plan Assessment/Plan (1) Diabetic ketoacidosis: PLAN: Plan The patient is a 30 y/o F w/ PMHx: Former tobacco use, Asthma, IDDM, Anxiety and Depression/Bipolar disorder, GERD who presents to the [facility] ED on 04/20/25 with onset significant nausea and emesis over the last week worse over the last 24 to 40 hours with increasing fatigue and malaise with dehydrated sensation given GI losses and inability to maintain appropriate oral intake with no recent fevers or chills nor any URI type symptoms on metformin only but unable to take it recently secondary to her GI losses. #1. DKA w/ IDDM likely in large part secondary to #2 with significant electrolyte disturbances with pseudohyponatremia, metabolic acidosis: Will admit to the ICU, given significant electrolyte disturbances will request inweaver involvement, will continue on insulin drip, will administer bicarb amp x 2 with plan for repeat ABG in 1 to 2 hours, will continue to check serial K+, glucose w/ IVF changes pending these levels, serial chemistry, obtain mag, phos daily w/ repletion as needed, transition to home SC regimen when gap closed w/ overlap on drip, nutrition consultation. Encouraged diet and insulin regimen compliance. Hemoglobin A1c requested. #2. Acute Complicated Urinary Tract Infection (ED noted sepsis; however no significant endorgan damage noted aside from significant lactic acidosis but given DKA presentation confounded): UA upon ED evaluation remarkable, pending UCx, continue aggressive IVFs, monitor I/Os, continue IV Rocephin w/ transition as able pending sensitivities and speciation. Bld cx x 2 obtained in the ED. #3. Anxiety and depression/bipolar disorder: Will continue patient on fluoxetine regimen and cautiously buspirone but hold for sedation. #4. Chronic asthma: Per current list does not appear to be on a regimen, will maintain on PRN albuterol, HOB, IS parameters. #5. Former tobacco use: Encourage continued tobacco cessation. #6. GERD: Will maintain on IV PPI while n.p.o. on insulin drip as noted. #7. Notable oral thrush: Will initiate nystatin swish and swallow. #8. DVT prophylaxis: Lovenox. Charges/Coding Visit Charges Inpatient E&M: 08448 Init Hosp L3 D/C Safety Score for UGIB Assessment [place] Bleeding Score (GBS): Stratifies upper GI bleeding patients who are low-risk and candidates for outpatient management. Hemoglobin, BUN, Recent Vital Signs: Hgb 17.2 g/dL (12.0-15.0) H 04/20/25 18:31 BUN 12 mg/dL (4-19) 04/20/25 18:31 Pulse Rate 101 Blood Pressure 151/76 Score Interpretation: Score of 0: A GBS of 0 is a ?Low Risk? GI bleed, and is highly sensitive (99.6% in a 2007 retrospective study) for predicting which patients did not require any ?medical intervention?: blood transfusion, endoscopy, or surgery. This was confirmed in a 2009 [facility] study where patients with a score of 0 were actually discharged and had no GI bleeding mortality at 6 month followup Score above 0: A GBS greater than zero suggests a ?High Risk? GI bleed that is likely to require ?medical intervention?: transfusion, endoscopy, or surgery. A higher GBS also correlated with a higher likelihood of needing intervention Scores >/= 6 are associated with >50% risk of needing intervention D/C Safety Score for LGIB Assessment Assessment Tool: Readmission and adverse event risk in patients with acute lower GI bleeding. Hemoglobin and Recent Vital Signs: Hgb 17.2 g/dL (12.0-15.0) H 04/20/25 18:31 Pulse Rate 101 04/20/25 21:00 Blood Pressure 151/76 04/20/25 21:00 Score Interpretation: Probability Percentage of safe discharge (absence of rebleeding, blood transfusion, therapeutic intervention, 28 day readmission, or ) Score of 8 or below: Consider discharge, with appropriate precautions. Score of 9 or above: Discharge NOT recommended. Consider admission with further workup and resuscitation as necessary.
--- NOTE | 2025-04-20 22:17 | ED.RN ---
Clarified order by Dr. Walker that the fluid resuscitation total amount was 2500 mL's including the initial 1L that was previously ordered. Dr. Walker confirmed total amount to be given includes the initial liter and should be a total of 2500.
[2025-04-20] MEDS: Ceftriaxone 2 GM in 0.9% Normal Saline (50mL MB+) 50 ML IV (22:21)
[2025-04-20 22:24] LABS: BETA-HYDROXYBUTYRATE 7.9 mmol/L (0.0-0.3)
[2025-04-20] MEDS: Insulin Lispro 100 UNIT in 0.9% Normal Saline (100mL Bag) 99 ML CONT INF (22:34)
--- OUTSIDE RECORDS SUMMARY | 2025-04-20 22:34 | XMS RPT_ITS | CCD ---
Author Organization [facility] Care Team Providers Care Aegis Console Operator Track Name Role Phone HERNANDEZLESLIEJOSIE Unavailable Unavailable ARMINDA, VERONA Unavailable Unavailable ARMINDA, VERONA Unavailable Unavailable RAPHAEL CABEZAS Unavailable Unavailable ARMINDA, VERONA Unavailable Unavailable HERNANDEZ, JOSIE Unavailable Unavailable ARMINDA, VERONA Unavailable Unavailable [...] Care Provider Arminda, Verona Primary Care Provider Juno Blackburn Unavailable Unavailable Unavailable Unavailable Unavailable Oberhauser, Rich Unavailable Unavailable Alexey Juno Unavailable Unavailable Oberhauser, Rich L Unavailable Unavailable MATY CHAVEZ Admitting Unavailable KOMALMATY CORBIN Referring Unavailable ARMINDA, VERONA Primary Care Unavailable Arminda, Verona Primary Care Provider [phone] ARMINDA, VERONA Primary Care Unavailable CAROL GUBERT KEENAN Attending Unavailable ARMINDA, VERONA Primary Care Unavailable OBERHAUSER RICH Referring Unavailable MEDIANLUPEBERT KEENAN Attending Unavailable ARMINDA, VERONA Primary Care Unavailable REKHA ROCHA Attending Unavailabl e MEDINASRINI KEENAN Attending Unavailable ARMINDA, VERONA Primary Care Unavailable MEDINA, GUBERT KEENAN Admitting Unavailable ARMINDA, VERONA Primary Care Unavailable MEDINA GUBERT KEENAN Attending Unavailable MEDINA, GUBERT KEENAN Referring Unavailable ARMINDA, VEORNA Primary Care Unavailable MATY CHAVEZ Attending Unavailable KOMAL, MATY LISA Referring Unavailable Arminda, Verona Primary Care Provider Unavailabl e Oberhauser, Rich L Unavailable Epifanio Sorensen Unavailable Unavailable ObnadirerRealn L Unavailable [phone] Unavailable Unavailable Unavailable Unavailable KATIANA ROCHA Referring Unavailable AJ KATIANA Primary Care Unavailable Jamari Byrne Unavailable Unavailable Unavailable Unavailable Unavailable Unavailable Unavailable Marshall Brown MD Primary Care Provider MARSHALL BROWN Primary Care Unavailable LAZARA JON Attending Unavailable Jamari Byrne MD Primary Care Provider Jamari Byrne MD Unavailable Jamari Byrne MD Primary Care Provider Jamari Byrne MD Primary Care Provider MILLY JI DO Admitting Unavailable MILLY JI DO Attending Unavailable MILLY JI DO Primary Care Unavailable JAMARI BYRNE Consulting Unavailable JAMARI BYRNE Referring Unavailable PROVIDER, UNKNOWN Consulting Unavailable MILLY JI DO Admitting Unavailable MILLY JI DO Attending Unavailable PIPER JULIAN Referring Unavailable DIDUR, MILLY DO Primary Care Unavailable CHAVEZ, JAMARI L Consulting Unavailable PROVIDER, UNKNOWN Consulting Unavailable CHAVEZ, JAMARI L Primary Care Unavailable CHAVEZ, JAMARI L Primary Care Unavailable Chavez SHAFER, Jamari Gonzalez Primary Care Provider Jamari Byrne MD Unavailable [phone] Dr. Jamari Byrne MD Primary Care Provider Leonie Waldron CNM Attending Provider Leonie Waldron CNM Referring Provider POOJA LATHAM Referring Unavailable CHAVEZ, JAMARI L Primary Care Unavailable PAMELA HASKINS Attending Unavailable LATHAM, POOJA Referring Unavailable CHAVEZ, JAMARI L Primary Care [...] Referring Provider Mariajose Nickerson CNM Referring Provider Dr. Elie Mo DO Referring Provider Dr. Elie Mo DO Emergency Provider Dr. Jamari Byrne MD Primary Care Provider Dr. Ian Rocha MD Emergency Provider Jamari Byrne MD Unavailable Dr. Elie Mo DO Attending Provider Dr. Shelia Ortega DO Emergency Provider Jamari Byrne MD Primary Care Provider CHAVEZ JAMARI Primary Care Unavailable LEONIE GALARZA Attending Unavailable SELF, SELF Referring Unavailable CHAVEZ, JAMARI Primary Care Unavailable MILLY CONTRERAS Attending Unavailable CHAVEZ, JAMARI L Primary Care Unavailable ISSAC ROMERO Attending Unavailable CHAVEZ, JAMARI L Primary Care Unavailable TIGUYANORONALDO Referring Unavailable CHAVEZ, JAMARI L Primary Care Unavailable ELIEL, PIPER L Referring Unavailable ELIEL, PIPER L Attending Unavailable ELIEL, PIPER L Referring Unavailable CHAVEZ, JAMARI L Primary Care Unavailable RONALDO RUBIO Attending Unavailable CHAVEZ, JAMARI L Primary Care Unavailable MEG GRAMAJOMON Attending Unavailable CHAVEZ, JAMARI L Primary Care [...] Primary Care Unavailable AVILA, KARMON Referring Unavailable WILLIAM GRAMAJO Attending Unavailable CHAVEZ, JAMARI L Primary Care Unavailable AVILA, KARMON Referring Unavailable CHAVEZ, JAMARI L Primary Care Unavailable ELIEL, PIPER L Attending Unavailable AVILA, KARMON Referring Unavailable CHAVEZ, JAMARI L Primary Care Unavailable CARRIE LARSEN Attending Unavailable CHAVEZ, JAMARI L Primary Care Unavailable HAURY, ZAYDA Referring Unavailable CHAVEZ, JAMARI L Primary Care Unavailable HAURY, ZAYDA Referring Unavailable AVILA, KARMON Attending Unavailable CHAVEZ, JAMARI L Primary Care Unavailable AVILA KARMON Attending Unavailable CHAVEZ, JAMARI L Primary [...] Unavailable CHAVEZ, JAMARI L Primary Care Unavailable ÁNGELA NORRIS Attending Unavailable CHAVEZ, JAMARI L Primary Care Unavailable AVILA, KARMON Referring Unavailable AVILA KARMON Attending Unavailable CHAVEZ, JAMARI L Primary [...] Unavailable CHAVEZ, JAMARI L Primary Care Unavailable AVILAWILLIAM Referring Unavailable CHAVEZ, JAMARI L Primary Care [...] Primary Care Unavailable KELSY GUILLERMO Attending Unavailable WHIT MORTON Attending Unavail able CHAVEZ, [...] KELSY GUILLERMO Attending Unavailable CHAVEZ, JAMARI L Attending Unavailable CHAVEZ, JAMARI L Primary Care Unavailable CHAVEZ, JAMARI L Attending Unavailable CHAVEZ, JAMARI L Primary Care Unavailable JOANIE HRUTADO Attending Unavailable CHAVEZ, JAMARI L Primary Care Unavailable CHAVEZ, JAMARI L Attending Unavailable CHAVEZ, JAMARI L Primary Care Unavailable CHAVEZ, JAMARI L Attending Unavailable CHAVEZ, JAMARI L Primary Care Unavailable CHAVEZ, JAMARI L Primary Care Unavailable TY SHANNON Attending Unavailable CHAVEZ, JAMARI L Primary Care Unavailable CHAVEZ, JAMARI L Primary Care Unavailable REZA DYER Attending Unavailable CHAVEZ, JAMARI L Primary Care Unavailable SIXTO MYERS Attending Unavailable Chavez, Jamari Primary Care Unavailable Keshav Loving Admitting Unavailable Keshav Loving Attending Unavailable WiswellFloridaa Referring Unavailable Chavez, Jamari Primary Care Unavailable Mariajose Nickerson Attending Unavailable Mariajose Nickerson Referring Unavailable Chavez, Jamari Primary Care Unavailable Mariajose Nickerson Attending Unavailable William Gramajo Referring Unavailable Chavez, Jamari Primary Care Unavailable William Gramajo Admitting Unavailable William Gramajo Attending Unavailable Chavez, Jamari Primary Care Unavailable Shelia Ortega Attending Unavailable Leonie Waldron Referring Unavailable Chavez, Jamari Primary Care Unavailable Leonie Waldron Attending Unavailable Chavez, Jamari Primary Care Unavailable Ian Rocha Attending Unavailable Chavez, Jamari Primary Care Unavailable Elie Mo Attending Unavailable Elie Mo Referring Unavailable Newatson-Jesse Schultere Attending Unavail able Neypaulinat-Schulte, Whit Referring Unavail able Chavez, Jamari Primary Care Unavailable Neyhart-Schulte, Whit Referring Unavail able Chavez, Jamari Primary Care Unavailable Neypaulinat-Schulte, Whit Attending Unavail able Allergies Allergy Classification Reported Allergen(s) Allergy Type Date of Onset Reaction(s) Facility ARIPiprazole (1 source) ARIPiprazole Drug Allergy Unknown [facility] DOPamine Antagonists (5 sources) Metoclopramide; Translations: [Reglan] Drug Allergy Unknown [facility] Ondansetron (5 sources) Ondansetron; Translations: [Zofran] Drug Allergy Unknown [facility] QUEtiapine (5 sources) QUEtiapine; Translations: [quetiapine] Drug Allergy Unknown [facility] (1 source) No Known Drug Allergies; Translations: [No Known Drug Allergies] Propensity to adverse reactions (disorder) [facility] (1 source) No Known Allergies; Translations: [No Known Allergies] Propensity to adverse reactions (disorder) [facility] (20 sources) Ondansetron; Translations: [Zofran] Drug Allergy 02-06-20 18 Nausea and Vomiting, Vomiting, GI Upset, Other, Unknown, Nausea/vomitin g [facility] (20 sources) Aluminum Hydroxide / Magnesium Hydroxide; Translations: [ALUMINUM-MAGNESIU M HYDROXIDE] Drug Allergy 02-06-20 18 GI Intolerance, Other, GI Upset [facility] (20 sources) Metoclopramide; Translations: [METOCLOPRAMIDE HCL] Drug Allergy 02-11-20 19 Hives, Unknown [facility] (20 sources) Ondansetron; Translations: [ONDANSETRON HCL] Drug Allergy 02-06-20 18 GI Intolerance, Unknown, GI Upset, Other [facility] (20 sources) QUEtiapine; Translations: [QUETIAPINE] Drug Allergy 10-05-19 19 Shortness Of Breath, Unknown, Palpitations, Other: See Comments, Other, Dyspnea [facility] Comment on above: Lethargy (14 sources) Metoclopramide; Translations: [Reglan] Drug Allergy Unknown [facility] (4 sources) Ondansetron; Translations: [ZOFRAN] Drug Allergy Unknown [facility] (20 sources) Sertraline; Translations: [SERTRALINE] Drug Allergy 12-08-19 20 Other, Mental Status Change, Unknown [facility] Comment on above: Suicidal Ideation (20 sources) ARIPiprazole; Translations: [ARIPIPRAZOLE] Drug Allergy 12-14-19 23 Unknown, Mental Status Change [facility] Work Phone: Comment on above: Suicidal Ideation (20 sources) Metoclopramide; Translations: [METOCLOPRAMIDE] Drug Allergy 02-11-20 19 Vomiting, Hives, Nausea/vomitin g, Unknown, Nausea and Vomiting [facility] Comment on above: Heart palpitations (20 sources) Promethazine; Translations: [PROMETHAZINE] Drug Allergy 07-11-19 GI Upset [facility] Work Phone: (1 source) Promethazine Drug Allergy [facility] (1 source) ARIPiprazole Drug Allergy 01-27-20 [facility] (1 source) Metoclopramide Drug Allergy 01-27-20 [facility] (1 source) Ondansetron Drug Allergy 01-27-20 [facility] (1 source) QUEtiapine Drug Allergy 01-27-20 [facility] Medications Current Medications Medication Drug Class(es) Dates Sig (Normalized) Sig (Original) acyclovir 400 mg oral tablet (20 sources) Herpesvirus Nucleoside Analog DNA Polymerase Inhibitor, Herpes Simplex Virus Nucleoside Analog DNA Polymerase Inhibitor, Herpes Zoster Virus Nucleoside Analog DNA Polymerase Inhibitor Start: 10-04-2024 End: 01-19-2025 take 1 tablet by mouth twice daily acyclovir (Zovirax) 400 mg tablet Take 1 tablet (400 mg) by mouth twice a day. 01/19/2025 Active Start: 04-18-2024 End: 04-18-2024 take [...] DAY FOR 2 DAYS. 04/19/2024 05/07/2024 Discontinued [id number] 200 actuat albuterol 0.09 mg/actuat metered dose inhaler (20 sources) beta2-Adrenergic Agonist Start: 11-15-2024 Albut gibson Sulfate 90 mcg/actuation HFA aerosol inhaler Active 1 - 2 NMA INHALATION NEEDED as needed for shortness of breath or wheezing November 15, 2024 12:00am Start: 09-19-2022 End: 09-06-2024 take 1-2 puff(s) by inhalation every six hours as needed albuterol 90 mcg/actuation inhaler Indications: Exercise-induced asthma INHALE 1 TO 2 PUFFS EVERY 6 HOURS NEEDED 18 g 3 09/06/2024 Active Start: 10-07-2019 take 1-2 puff(s) by [...] two times a day for 5 days. amoxicillin 875 mg / clavulanate 125 mg oral tablet (2 sources) Penicillin-class Antibacterial Start: 02-20-20 End: 02-27-20 25 take 1 tablet by mouth twice daily amoxicillin-clavulan ate potassium (AUGMENTIN) 875-125 mg per tablet Indications: Bacterial sinusitis Take 1 tablet by mouth two times a day for 7 days. 14 tablet 02/19/2025 02/26/2025 Active ARIPiprazole 5 mg oral tablet (11 sources) Atypical Antipsychotic Start: 05-05-20 18 take [...] each once daily. Active busPIRone hydrochloride 15 mg oral tablet (20 sources) Start: 02-26-2024 End: 05-04-2025 take 1 tablet by mouth once daily busPIRone (Buspar) 15 mg tablet Indications: Bipolar depression (Multi) Take 1 tablet (15 mg) by mouth once daily. 30 tablet 05/04/2024 05/04/2025 Active Start: 05-23-2023 End: 05-03-2024 take 1 [...] oral tablet (3 sources) Mood Stabilizer Start: End: take 1 tablet by mouth twice daily carBAMazepine (TEGretol XR) 200 MG 12 hr tablet Indications: Seizure (HCC) Take 1 (one) tablet (200 mg total) by mouth 2 (two) times a day . 60 tablet 11 07/05/2020 Active 12 hr dextromethorphan hydrobromide 30 mg / guaiFENesin 600 mg extended release oral tablet (1 source) Uncompetitive Q-uqcjmi-F-aspartate Receptor Antagonist, Sigma-1 Agonist Start: take 30-600 mg by mouth every twelve hours as needed guaiFENesin-dextrome thorphan 30-600 MG Tab SR 12 HR Indications: Cough, unspecified type , Acute upper respiratory infection Take 1 tablet by mouth 2 times daily as needed for Cold Symptoms, Cough, Congestion or Rhinitis. 10 tablet 02/21/2025 Active 2 ml dicyclomine hydrochloride 10 mg/ml injection (2 sources) Anticholinergic Start: dicyclomine (BENTYL) injection 20 mg Start: 09-12-2018 [...] capsule (20 sources) Serotonin Reuptake Inhibitor Start: 04-15-2024 End: 05-04-2024 take 1 capsule by mouth once daily FLUoxetine (PROzac) 20 mg capsule Take 1 capsule (20 mg) by mouth once daily. 04/15/2024 Active Start: 02-26-2024 End: 11-15-2024 Fluoxetine 40 mg capsule Discontinued 20 mg PO daily February 26, 2024 12:00am November 15, 2024 4:00pm Mood Start: 02-26-2024 FLUoxetine (NE Ozac) 40 mg capsule 04/15/2024 Active Start: 09-27-2019 take 0.5 tablet by m outh once daily, then take 1 tablet by mouth FLUoxetine HCl - 20 MG Oral Tablet TAKE 0.5 tablet daily x 7 days then 1 whole tablet thereafer Quantity: 35 Refills: 0 Rich Ng DO Start : 27-Sep-2019 Active FLUoxetine HCl - 20 MG Oral Capsule Quantity: 0 Refills: 0 Ordered: 22-Feb-2022 DO Active FLUoxetine HCl - 40 MG Oral Capsule Quantity: 0 Refills: 0 Ordered: 13-May-2019 DO Active Comment on above: Take 40 mg by mouth. fluticasone propionate 0.05 mg/actuat metered dose nasal spray (1 source) Corticosteroid Start: 01-29-2025 fluticasone 50 MCG/ACT Suspension nasal spray 2 sprays per nostril twice a day for 7 days. 16 g 01/29/2025 Active glipiZIDE 5 mg oral tablet (20 sources) Sulfonylurea Start: 02-22-2025 glipiZIDE (Glucotrol) 5 mg tablet Take 1 tablet (5 mg) by mouth. 02/22/2025 Active Start: 03-16-2023 End: 05-03-2024 glipiZIDE (GLUCOTROL) 5 mg t ablet 10 mg two times a day. 03/16/2023 [...] low BG 50 tablet 5 06/07/2024 Active inhalational spacing device inhaler (2 sources) Start: 01-31-2025 End: 03-09-2025 inhalational spacing device inhaler Indications: Exercise-induced asthma Use as directed with inhalers 1 each 01/31/2025 03/09/2025 Discontinued (Med List Cleanup) Start: 01-31-2025 End: 01-31-2026 inhalational spacing device inhaler Indications: Exercise- induced asthma Use as directed with inhalers 1 each 01/31/2025 01/31/2026 Active 3 ml insulin aspart, human 100 unt/ml [...] insulin instructions. 15 mL 12/25/2023 12/24/2024 Active insulin lispro 100 unt/ml injectable solution (20 sources) Insulin Analog Start: 01-31-2025 End: 03-09-2025 inject 8 [IU] by subcutaneous injection three times daily at mealtime insulin lispro 100 unit/mL injection Indications: Hyperglycemia due to diabetes mellitus (Multi) Inject 8 Units under the skin 3 times daily (morning, midday, late afternoon). With meals; plus 5 units for increased carbs 01/31/2025 03/09/2025 Discontinued (Med List Cleanup) Start: 12-16-2024 Insulin Lispro (Humalog Kwikpen Insulin) 100 unit/mL insulin pen Active 8 U SC THREE TIMES A DAY December 16, 2024 12:00am ADDITIONAL 5 UNITS IF HIGH CARB MEAL CONSUMED Start: 12-16-2024 Insulin Lispro (Humalog Kwikpen Insulin) 100 unit/mL insulin pen Active 8 U SC THREE TIMES A DAY December 16, 2024 12:00am Start: 08-03-2024 End: 02-22-2025 insulin lispro (HUMALOG KWIK PEN INSULIN) 100 unit/mL Indications: Insulin controlled gestational diabetes mellitus (GDM) in first trimester ([facility]) Humalog 8 units prior to meals (+5 units with higher carb meals) 15 mL 02/01/2025 02/22/2025 Discontinued Start: 07-26-2024 End: 02-01-2025 insulin lispro (HUMALOG KWIK PEN INSULIN) 100 unit/mL Indications: Insulin controlled gestational diabetes mellitus (GDM) in first trimester (HCC) 23 -23 - 26 units prior to each meal respectively + scale (upto 100 units/day) 45 mL 08/03/2024 02/01/2025 Discontinued Start: 07-26-2024 End: 07-26-2024 insulin lispro (HUMALOG [...] February 26, 2024 12:00am Start: 01-08-2024 End: 03-09-2025 inject 4 [IU] by subcutaneous injection three times daily insulin lispro (HumaLOG KwikPen Insulin) 100 unit/mL injection Indications: Hyperglycemia due to diabetes mellitus (Multi) Inject 4 Units under the skin 3 times daily (morning, midday, late afternoon). Take as directed per insulin instructions. 15 mL 3 01/08/2024 03/09/2025 Discontinued (Med List Cleanup) Start: 12-13-2016 End: 01-07-2025 insulin lispro (HUMALOG [...] isophane (HUMULIN N NPH U-100 INSULIN SUBQ) (5 sources) inject 20 [IU] by subcutaneous injection once daily at bedtime insulin NPH human isophane (HUMULIN N NPH U-100 INSULIN SUBQ) Inject 20 Units under the skin once daily at bedtime. Take as directed per insulin instructions. Active inject 15 [IU] by martinez bcutaneous injection once daily at bedtime insulin NPH human isophane (HUMULIN N OR SCRUB TECH H U-100 INSULIN SUBQ) Inject 15 Units under the skin once daily at bedtime. Take as directed per insulin instructions. Active metFORMIN hydrochloride 500 mg oral tablet (20 sources) Biguanide Start: 02-26-2025 take 1 tablet by mouth twice daily metFORMIN (Glucophage) 500 mg tablet Take 1 tablet (500 mg) by mouth 2 times daily (morning and late afternoon). 02/26/2025 Active Start: 02-22-2025 metFORMIN ER ( GLUCOPHAGE XR) 500 mg 24 hr tablet One tab twice/day with meals 60 tablet 11 02/22/2025 Active Start: 09-27-2019 End: 09-29-2024 take 1 tablet by mouth twice daily [...] Start: 05-05-2018 take 2 tablets by mo uth twice daily at breakfast metFORMIN (GLUCOPHAGE-XR) 500 [...] Start: 07-03-2021 take 1 capsule by mo uth once daily Nitrofurantoin Monohyd Macro 100 MG Oral Capsule TAKE 1 CAPSULE EVERY 12 HOURS DAILY. Quantity: 10 Refills: 0 Ordered: 03-Jul-2021 Rich Ng DO Start : 03-Jul-2021 Active omeprazole 20 mg delayed release oral capsule (7 sources) Proton Pump Inhibitor Start: 03-09-2025 End: 09-05-2025 take 1 capsule by mouth once daily omeprazole (PriLOSEC) [address] capsule Indications: Diabetic gastroparesis associated with type 2 diabetes mellitus (Multi) Take 1 capsule (20 mg) by mouth once daily. Do not crush or chew. 30 capsule 1 03/09/2025 09/05/2025 Active Start: 09-19-2020 take 1 capsule by mo coh once daily Omeprazole 20 MG Oral Capsule Delayed Release TAKE 1 CAPSULE Daily Quantity: 30 Refills: 4 Ordered: 19-Sep-2020 Rich Ng DO Start : 19-Sep-2020 Active ondansetron 4 mg disintegrating oral tablet (2 sources) Serotonin-3 Receptor Antagonist Start: 01-23-2025 take 1 tablet by mouth every six hours as needed for nausea and vomiting Ondansetron 4 mg tablet,disintegrating Active 4 mg PO EVERY 6 HOURS as needed for nausea and vomiting 7 0 January 23, 2025 12:00am OneTouch Verio Flex meter misc (4 sources) Start: 08-15-2024 OneTouch Verio Flex meter misc 1 each 4 times a day. 08/15/2024 Active oseltamivir 75 mg oral capsule (1 source) Neuraminidase Inhibitor Start: 07-01-2024 End: 07-06-2024 take 1 capsule by mouth every twelve hours oseltamivir (Tamiflu) 75 mg capsule Indications: Influenza A Take 1 capsule (75 mg) by mouth every 12 hours for 5 days. 10 capsule 07/01/2024 07/06/2024 Active Vit-Fe Fumarate-FA ([facility] ) 28-0.8 MG Tab (1 source) Vit-Fe Fumarate-FA ([facility] ) 28-0.8 MG Tab Take by mouth. 0 Active promethazine hydrochloride 25 mg oral tablet (1 source) Phenothiazine Start: 01-26-2025 take 1 tablet by mouth three times daily as needed for nausea and vomiting Promethazine 25 mg tablet Active 25 mg PO THREE TIMES A DAY as needed for nausea and vomiting 10 0 January 26, 2025 12:00am Completed/Discontinued Medications Medication Drug Class(es) Dates Sig [...] 3 mL alogliptin 25 mg oral tablet (11 sources) Start: 01-23-2018 End: 02-26-2024 take 1 [...] December 09, 2024 8:48am Start: 07-13-2024 End: 01-24-2025 take 2 tablets by mouth once daily [...] ONCE. Quantity: 1 Refills: 0 Ordered: 27-Nov-2021 Genoveva Sutton DO Start : 27-Nov-2021 Active Blood-Glucose [...] every 10 days 3 each 11 10/08/2023 Active Start: 09-09-2022 blood-glucose sensor (Dexcom G6 Sensor) device Indications: Hyperglycemia due to diabetes mellitus ([facility]) Apply every 10 days 3 each 09/09/2022 [...] Cleanup) Start: 12-08-2023 take 1 capsule by [facility] once daily at bedtime Caplyta 21 mg capsule Take 1 capsule (21 mg) by mouth once daily at bedtime. 12/08/2023 Active cephalexin 500 mg oral capsule (12 sources) Cephalosporin Antibacterial Start: 04-18-2024 End: 04-18-2024 [...] infection in mother during first trimester of ([facility]) Take 1 capsule (500 mg) by mouth 4 times a day for 7 days. 28 capsule 04/18/2024 04/25/2024 Active Start: 11-16-2020 take 1 capsule by mo ut three times daily Cephalexin 500 MG Oral [...] days. 7.5 mL 0 03/28/2017 09/12/2018 Discontinued clobetasol propionate 0.5 mg/ml topical cream (20 sources) Corticosteroid Start: 01-13-2024 End: 01-24-2025 clobetasol (Temovate) 0.05 % cream Apply 1 Application topically 2 times a day. 01/13/2024 01/24/2025 Discontinued (Entered in Error) clotrimazole 10 mg/ml topical cream (1 source) Azole Antifungal Start: 03-12-2017 End: 09-12-2018 apply 40 g topically twice daily as needed clotrimazole 1 % Cream Indications: Intertrigo Apply small amount Topical two times daily 7-14 days PRN 40 g 0 03/12/2017 09/12/2018 Discontinued Dexcom G4 [place] [employer] (Dexcom G6 [employer]) misc (19 sources) Start: 03-17-2023 End: 05-04-2024 Dexcom G4 [place] [employer] (Dexcom G6 [employer]) misc Indications: Hyperglycemia due to diabetes mellitus (Multi) Use as instructed 1 each 03/17/2023 05/04/2024 Discontinued (Med List Cleanup) Start: 03-17-2023 Dexcom G4 [place] [employer] (Dexcom G6 Surgical Elastic Knitter) misc Indications: Hyperglycemia due to diabetes mellitus (Multi) Use as instructed 1 each 03/17/2023 Active Start: 03-17-2023 Dexcom G4 [place] [employer] (Dexcom G6 [employer]) misc Indications: Hyperglycemia due to diabetes mellitus (CMS/HCC) Use as instructed 1 each 0 03/17/2023 Active Start: 09-09-2022 End: 05-04-2024 Dexcom G4 [place] [employer] (Dexcom G6 Surgical [employer]) misc Indications: Hyperglycemia due to diabetes mellitus (Multi) Use as instructed 1 each 09/09/2022 05/04/2024 Discontinued (Med List Cleanup) Start: 09-09-2022 Dexcom G4 [place] [employer] (Dexcom G6 Surgical [employer]itter) misc Indications: Hyperglycemia due to diabetes mellitus (Multi) Use as instructed 1 each 09/09/2022 Active Start: 09-09-2022 Dexcom G4 [place] [employer] (Dexcom G6 [employer]itter) misc Indications: Hyperglycemia due to diabetes mellitus (CMS/HCC) Use as instructed 1 each 0 09/09/2022 Active Dexcom G4 [place] [employer] (Dexcom G6 Transmitter) device (12 sources) Start: 05-09-2023 End: 05-04-2024 Dexcom G4 [place] [employer] (Dexcom G6 Transmitter) device [...] Active Start: 12-13-2022 End: 05-09-2023 Dexcom G4 [place] [employer] (Dexcom G6 Transmitter) device Indications: Hyperglycemia due to diabetes mellitus (CMS/HCC) Apply every 10 days 1 each 11 12/13/2022 05/09/2023 Discontinued (Reorder) Start: 12-13-2022 Dexcom G4 [place] (Dexcom G6 Transmitter) device Indications: Hyperglycemia due to diabetes mellitus (CMS/HCC) Apply every 10 days 1 each 11 12/13/2022 Active Start: 09-09-2022 End: 12-13-2022 Dexcom G4 [place] [employer] (Dexcom G6 Transmitter) device [...] this medication. fluconazole 150 mg oral tablet (15 sources) Azole Antifungal Start: 02-26-20 End: 10-17-19 [...] mg/ml topical cream (3 sources) Corticosteroid Start: 07-10-2023 End: 07-09-2024 halobetasol (UltraVATE) 0.05 % cream Indications: Necrobiosis lipoidica Apply topically 2 times a day. 15 g 1 07/10/2023 12/25/2023 Discontinued (Med List Cleanup) HumuLIN N NPH Insulin KwikPen (7 sources) Start: 10-16-2024 End: 01-21-2025 HumuLIN N NPH Insulin KwikPen Discontinued 90 U SC AT BEDTIME October 16, 2024 12:00am January 21, 2025 1:25pm type II diabetes 90 units; Start: 10-16-2024 HumuLIN N NPH Insulin KwikPen Active 90 U SC AT BEDTIME October 16, 2024 12:00am type II diabetes 90 units; Start: 10-16-2024 HumuLIN N NPH Insulin KwikPen Active 90 U SC AT BEDTIME October 16, 2024 12:00am 90 units; hydrocortisone 5 mg/ml topical cream (14 sources) Corticosteroid Start: 09-24-2024 End: 11-03-2024 hydrocortisone 0.5 % cream Apply to affected area two times a day. 28.4 g 09/24/2024 11/03/2024 Discontinued ibuprofen 600 mg oral tablet (8 sources) Nonsteroidal Anti-inflammatory Drug Start: 01-22-2017 End: 10-16-2024 take 1 tablet by mouth every six hours as needed for pain Ibuprofen 600 MG tablet Discontinued 600 mg PO EVERY 6 HOURS as needed for Pain 60 1 January 22, 2017 12:00am October 16, 2024 5:46pm 3 ml insulin glargine 100 unt/ml pen injector (20 sources) Insulin Analog Start: 03-17-2023 End: 03-16-2024 inject 10 [IU] by subcutaneous injection once daily at bedtime insulin glargine (Lantus Solostar U-100 Insulin) 100 unit/mL (3 mL) pen Indications: Hyperglycemia due to diabetes mellitus (CMS/[facility]) Inject 10 Units under the skin once [...] injection Indications: Hyperglycemia due to diabetes mellitus ([facility]) Inject 10 Units under the skin once daily at bedtime. Take as directed per insulin instructions. 9 mL 3 12/13/2022 03/17/2023 Discontinued (Side effects) 3 ml insulin isophane, human 100 unt/ml pen injector (20 sources) Start: 02-01-2025 End: 02-22-2025 insulin NPH (HUMULIN N NPH INSULIN KWIKPEN) 100 unit/mL (3 mL) injection pen Indications: Insulin controlled gestational diabetes mellitus (GDM) in first trimester ([facility]) Inject 20 units at bed time 15 mL 11 02/01/2025 02/22/2025 Discontinued Start: 01-31-2025 End: 03-09-2025 HumuLIN N NPH Insulin KwikPe n 100 unit/mL (3 mL) pen Indications: type 2 diabetes mellitus Inject 20 Units under the skin once daily at bedtime. [facility] prescribes 01/31/2025 03/09/2025 Discontinued (Med List Cleanup) Start: 01-21-2025 Insulin Nph Is oph U-100 Human (Humulin N Nph Insulin Kwikpen) 100 unit/mL (3 mL) insulin pen Active 20 U SC AT BEDTIME January 21, 2025 12:00am Start: 01-03-2025 End: 01-31-2025 HumuLIN N NPH Insulin KwikPe n 100 unit/mL (3 mL) pen Inject 80 Units under the skin once daily at bedtime. 01/03/2025 01/31/2025 Discontinued (Reorder) Start: 09-20-2024 HumuLIN N Kwik Pen 100 UNIT/ML injection Inject 90 Units under the skin at bedtime. 09/20/2024 Active Start: 08-30-2024 End: 02-01-2025 insulin NPH (HUMULIN N NPH I NSULIN KWIKPEN) 100 unit/mL (3 mL) injection pen Indications: Insulin controlled gestational diabetes mellitus (GDM) in first trimester ([facility]) 90 units at bedtime 45 mL 11 09/20/2024 02/01/2025 Discontinued Start: 08-20-2024 End: 08-30-2024 insulin NPH (HUMULIN [...] at bedtime 5 Each 05/03/2024 05/09/2024 Discontinued Insulin Nph And Regular Human (16 sources) Insulin Start: 12-13-2016 End: 01-22-2017 Insulin [...] drop 07/22/2024 09/27/2024 Discontinued (Discontinued by Patient) End: 01-24-2025 take 1 drop(s) into the eye(s) four times daily ketorolac (Acular) 0.4 % ophthalmic solution Administer 1 drop into both eyes 4 times a day. Prescribed by LEEANNE LANGFORD 01/24/2025 Discontinued (Entered in Error) lisinopril 2.5 mg oral tablet (14 sources) Angiotensin Converting Enzyme Inhibitor Start: 02-23-2019 [...] 2018 12:00am February 26, 2024 1:48pm Lumateperone (8 sources) Start: 02-26-2024 End: 10-16-2024 take 1 capsule by mouth once daily Lumateperone (Caplyta) 21 mg capsule Discontinued 21 mg PO daily February 26, 2024 12:00am October 16, 2024 5:49pm Start: 02-26-2024 take 1 capsule by mo [facility] once daily Lumateperone (Caplyta) 21 mg [...] Once Quantity: 4 Refills: 0 Ordered: 26-Nov-2021 Genoveva Sutton DO Start : 26-Nov-2021 Active mupirocin [...] Rich Ng DO Start : 26-Dec-2020 Active pimecrolimus 10 mg/ml topical cream (20 sources) Calcineurin Inhibitor Immunosuppressant Start: 01-13-2024 End: 01-24-2025 pimecrolimus (Elidel) 1 % cream Apply 1 Application topically 2 times a day. 01/13/2024 01/24/2025 Discontinued (Entered in Error) pioglitazone 15 mg oral tablet (2 sources) [...] suspension 07/21/2024 09/27/2024 Discontinued (Discontinued by Patient) End: 01-24-2025 take 1 drop(s) into the eye(s) four times daily prednisoLONE acetate (Pred-Forte) 1 % ophthalmic suspension Administer 1 drop into both eyes 4 times a day. 01/24/2025 Discontinued (Entered in Error) 28-0.8 MG Oral Tablet (6 sources) Start: 05-13-2019 take 1 tablet by mouth once daily 28-0.8 MG Oral Tablet TAKE 1 TABLET DAILY. Quantity: 30 Refills: 11 Ijeoma Blackburn DOtt Start : 13-May-2019 Active 28-0.8 MG Oral Tablet (6 sources) Start: 05-13-2019 take 1 tablet by mouth once daily 28-0.8 MG Oral Tablet TAKE 1 TABLET DAILY. Quantity: 30 Refills: 11 Ordered: 13-May-2019 Juno Blackburn DO Start : 13-May-2019 Active VIT 10-IRON FUM-FOLIC ORAL (20 sources) End: 01-28-2025 VIT 10-IRON FUM-FOLIC ORAL Take by mouth. 01/28/2025 Discontinued VIT 10- IRON FUM-FOLIC ORAL Take by mouth. Active vitamin, iron-folic, () 27 mg iron-800 [...] another clinician) QUEtiapine 100 mg oral tablet (8 sources) Atypical Antipsychotic Start: 01-23-2018 End: 02-26-2024 [...] 0 Active 1000 ml sodium chloride 9 mg/ml injection (6 sources) Start: 01-24-2025 End: 01-24-2025 1,000 mL, intravenous, at 99 9 mL/hr, Administer over 1 Hours, Once, On Fri01/24/25 at 1420, For 1 dose Start: 10-04-2018 End: 10-05-2018 sodium chloride 0.9% [...] Active Problems Problem Classification Problem Date Documented Da te Episodic/Chronic Alcohol-related disorders (20 sources) History of alcohol abuse; Translations: [Alcohol abuse, in remission] Onset: 4 05-07-2024 Chronic Anxiety disorders (20 sources) Generalized anxiety disorder; Translations: [Mixed anxiety and depressive disorder] Onset: 8 07-30-2017 Chronic Asthma (20 sources) Asthma; Translations: [Unspecified asthma, uncomplicated] Onset: 8 07-21-2017 Chronic Deficiency and other anemia (9 sources) Anemia; Translations: [Anemia, unspecified] Episodic Developmental disorders (1 source) Intellectual disability; Translations: [Unspecified intellectual disabilities] Onset: 8 07-30-2017 Chronic Diabetes mellitus with complications (20 sources) Hyperglycemia due to diabetes mellitus; Translations: [Diabetes mellitus without mention of complication, type II or unspecified type, uncontrolled] Onset: 3 12-13-2022 Chronic Diabetes mellitus without complication (20 sources) Diabetes mellitus; Translations: [Type 2 diabetes mellitus] Onset: 7 Resolved: 8 03-12-2017 Chronic Diabetes or abnormal glucose tolerance complicating ; childbirth; or the puerperium (20 sources) and type 2 diabetes mellitus; Translations: [Pre-existing type 2 diabetes mellitus, in , first trimester] Onset: 7 Resolved: 4 12-03-2016 Chronic Comment on above: @ 38&3 Disorders of teeth and jaw (1 source) Toothache; Translations: [Other specified disorders of teeth and supporting structures] 08-19-2023 Episodic Esophageal disorders (20 sources) Gastroesophageal reflux disease; Translations: [Esophageal reflux] Onset: 3 07-11-2022 Chronic Essential hypertension (20 sources) Hypertensive disorder; Translations: [Unspecified essential hypertension] Onset: 8 03-12-2017 Chronic Gastritis and duodenitis (2 sources) Acute hemorrhagic gastritis; Translations: [Gastritis, unspecified, with bleeding] Onset: 5 01-28-2025 Episodic Headache; including migraine (7 sources) Refractory migraine without aura; Translations: [Migraine without aura, intractable, without status migrainosus] Onset: 9 02-22-2019 Chronic Headache; including migraine (8 sources) Headache; Translations: [Headache] 12-16-2024 Episodic Inflammation; infection of eye (except that caused by tuberculosis or sexually transmitteddisease) (4 sources) External hordeolum; Translations: [Hordeolum externum] Episodic Intestinal infection (12 sources) Intestinal trichomoniasis; Translations: [Intestinal trichomoniasis] Episodic Menstrual disorders (15 sources) Secondary amenorrhea; Translations: [Secondary amenorrhea] Onset: 3 Chronic Mood disorders (20 sources) Depressive disorder; Translations: [Recurrent major depressive episodes, mild ] Onset: 8 Resolved: 8 03-12-2017 Chronic Mood disorders (3 sources) Mood disorders; Translations: [Depression, unspecified] Onset: 3 03-09-2025 Mycoses (9 sources) Candidiasis of vagina; Translations: [Yeast vaginitis] Episodic Nausea and vomiting (19 sources) Nausea; Translations: [Nausea and vomiting] Onset: 5 12-16-2024 Episodic Nonspecific chest pain (6 sources) Acute chest pain; Translations: [Chest pain, unspecified] Onset: 5 01-24-2025 Episodic Osteoarthritis (8 sources) Osteoarthritis; Translations: [Unspecified osteoarthritis, unspecified site] [...] and damage, unspecified, fetus 1 (HCC)] Onset: 5 Episodic Other complications of (2 sources) Obesity complicating , first trimester; Translations: [Obesity affecting in first trimester, unspecified obesity type (HCC)] Onset: 5 Chronic Other complications of (20 sources) High risk ; Translations: [Supervision of high risk , unspecified, first trimester] Onset: 4 05-03-2024 Episodic Other complications of (1 source) Abdominal pain in ; Translations: [Other specified related conditions, first trimester] 05-21-2024 Episodic Other complications of (2 sources) Pruritus of ; Translations: [Diseases of the skin and subcutaneous tissue complicating , third trimester] 11-05-2024 Episodic Other congenital anomalies (10 sources) Congenital anomaly of finger; 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), including shoulder girdle] Onset: 7 07-14-2017 Chronic Other congenital anomalies (20 sources) Chromosomal disorder; 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, unspecified] Onset: 4 05-07-2024 Chronic Other congenital anomalies (2 sources) Chromosomal abnormality, unspecified; 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)] Onset: 4 Chronic Other connective tissue disease (1 source) Neurological finding; Translations: [Seizure-like activity] Episodic Other disorders of stomach and duodenum (2 sources) Gastroparesis; Translations: [Gastroparesis] Onset: 5 Episodic Other endocrine disorders (6 sources) Menarche; Translations: [History of Menarche] Chronic Other female genital disorders (1 source) Vulval irritation; Translations: [Other specified noninflammatory disorders of vulva and perineum] 07-23-2024 Episodic Other female genital disorders (12 sources) Irritable uterus; Translations: [Other specified noninflammatory disorders of uterus] 09-25-2024 Episodic Other female genital disorders (1 source) Pruritus of vagina; Translations: [Other specified noninflammatory disorders of vagina] 11-18-2024 Episodic Other gastrointestinal disorders (1 source) Diarrhea; Translations: [Diarrhea, unspecified] 01-26-2025 Episodic Other infections; including parasitic (6 sources) Infection by Trichomonas; Translations: [Trichomoniasis, unspecified] Episodic Other lower respiratory disease (1 source) Cough; Translations: [Cough, unspecified type] 02-21-2025 Episodic Other nutritional; endocrine; and metabolic disorders (9 sources) Developmental delay; Translations: [Developmental Delay] Onset: 7 07-14-2017 Chronic Other skin disorders (1 source) Sebaceous cyst of skin; Translations: [Sebaceous cyst] 09-15-2023 Episodic Other upper respiratory infections (2 sources) Bacterial sinusitis; Translations: [Chronic sinusitis, unspecified] Onset: 5 02-19-2025 Chronic Other upper respiratory infections (8 sources) Viral upper respiratory tract infection; Translations: [Posterior rhinorrhea] Onset: 5 02-19-2025 Episodic Residual codes; unclassified (1 source) Obstructive [...] [Weeks of gestation of not specified] Onset: Episodic Residual codes; unclassified (1 source) Gestation [...] unspecified reason] 09-24-2024 Episodic Residual codes; unclassified (13 sources) Gestation period, 27 weeks; Translations: [27 weeks gestation of ] 09-24-2024 Episodic Residual codes; unclassified (3 sources) Gestation period, 29 weeks; Translations: [29 weeks gestation of ] 10-05-2024 Episodic Residual codes; unclassified (15 sources) Gestation period, 31 weeks; Translations: [31 weeks gestation of ] 10-16-2024 Episodic Residual codes; unclassified (3 sources) Gestation period, 33 weeks; Translations: [33 weeks gestation of ] 11-02-2024 Episodic Residual codes; unclassified (2 sources) Gestation period, 34 weeks; Translations: [34 weeks gestation of ] 11-08-2024 Episodic Residual codes; unclassified (13 sources) Gestation period, 35 weeks; Translations: [35 weeks gestation of ] 11-15-2024 Episodic Residual codes; unclassified (1 source) Gestation period, 36 weeks; Translations: [36 weeks gestation of ] 11-25-2024 Episodic Residual codes; unclassified (1 source) Gestation period, 37 weeks; Translations: [37 weeks gestation of ] 12-02-2024 Episodic Residual codes; unclassified (12 sources) Gestation period, 38 weeks; Translations: [38 weeks gestation of ] 12-06-2024 Episodic Residual codes; unclassified (8 sources) History of past delivery; Translations: [Personal history of other genital system and obstetric disorders] 12-16-2024 Episodic Schizophrenia and other psychotic disorders (9 [...] Unclassified (1 source) Unknown / UNK(Unknown) Onset: 8 Unclassified (2 sources) Unspecified lump in the left breast, upper outer quadrant; Translations: [UNS LUMP IN LT BREAST UP] Onset: 8 Unclassified (9 sources) Finding relating to psychosocial functioning; Translations: [Problem related to psychosocial circumstances] Onset: 8 07-30-2017 Unclassified (9 sources) Intellectual disability; Translations: [Intellectual disability] Onset: 8 07-30-2017 Unclassified (1 source) Finding of sensation of abdomen; Translations: [Abdominal cramps] Unclassified (2 sources) EVAL 10-23-2020 Comment on above: EVAL Unclassified (1 source) 3 MONTH FUV 09-19-2020 Comment on above: 3 MONTH FUV Unclassified (1 source) Acute candidiasis of vulva and vagina; Translations: [Acute candidiasis of vulva and vagina] Onset: 3 Unclassified (20 sources) [facility] Education - COMMON Onset: 4 05-07-2024 Unclassified (20 sources) Education - [place] Onset: 4 05-07-2024 Unclassified (2 sources) complication before (HCC); Translations: [ complication before (HCC)] Onset: 5 Unclassified (1 source) Cough, unspecified; Translations: [Cough, unspecified] Onset: 5 Unclassified (1 source) Other specified diseases and conditions complicating puerperium; Translations: [Other specified diseases and conditions complicating puerperium] Onset: 5 Urinary tract infections (2 sources) Urinary tract infectious disease; Translations: [Urinary tract infection, site not specified] Episodic Viral infection (3 sources) Herpetic vulvovaginitis; 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 vulvovaginitis] Onset: 4 04-18-2024 Chronic Past or Other Problems Problem Classification Problem Date Documented Date Episodic/Chronic Abdominal pain (4 sources) Lower abdominal pain; Translations: [Unspecified abdominal pain] Onset: 05-21-2024 Episodic Adjustment disorders (10 sources) Grief finding; Translations: [Adjustment disorder with depressed mood] Onset: 05-22-2018 Resolved: 02-22-2019 05-22-2018 Chronic Administrative/social admission (20 sources) Relationship problems; Translations: [Follow-up status] Onset: 07-30-2017 07-30-2017 Episodic Bacterial infection; unspecified site (20 sources) Chlamydial infection; Translations: [Unspecified chlamydial infection] Onset: 04-28-2024 Resolved: 12-21-2024 05-10-2024 Episodic Contraceptive and procreative management (20 sources) Patient encounter status; Translations: [Unspecified contraceptive management] Onset: 11-02-2024 06-15-2024 Episodic Diabetes mellitus without complication (2 sources) [...] urinary (tract) infections] Onset: 05-07-2024 05-07-2024 Episodic Immunizations and screening for infectious disease (2 sources) Contact with and (suspected) exposure to other viral communicable diseases; Translations: [Contact with or exposure to other viral diseases] Onset: 10-25-2024 10-25-2024 Episodic Inflammatory diseases of female pelvic organs (13 sources) Bacterial vaginosis; Translations: [Acute vaginitis] Onset: [...] [H/O macrosomia in in prior , currently (HCC)] Onset: 05-07-2024 Episodic Other complications of (1 source) Diseases of the skin and subcutaneous tissue complicating , third trimester; Translations: [ pruritus, third trimester (HCC)] Onset: 11-05-2024 Episodic Other complications of (2 sources) Supervision of high risk , unspecified, third trimester; Translations: [High-risk , third trimester (HCC)] Onset: 10-25-2024 Episodic Other complications of (1 source) Smoking (tobacco) complicating , first trimester; Translations: [Tobacco smoking complicating in first trimester (HCC)] Onset: 05-07-2024 Episodic Other complications of (2 sources) Other viral diseases complicating , unspecified trimester; Translations: [Herpes simplex type 2 (HSV-2) infection affecting , antepartum, unspecified trimester ([facility])] Onset: 07-13-2024 Episodic Other complications of (1 source) Supervision of high risk , unspecified, second trimester; Translations: [Supervision of high risk in second trimester ([facility])] Onset: 09-24-2024 Episodic Other complications of (2 sources) Supervision of high risk , unspecified, first trimester; Translations: [Encounter for supervision of high risk in first trimester, antepartum ([facility])] Onset: 05-07-2024 Episodic Other complications of (2 sources) Other specified related conditions, first trimester; Translations: [Other specified related conditions, first trimester ([facility]-HCC)] Onset: 05-21-2024 Episodic Other complications of (2 sources) Unspecified infection of urinary tract in , first trimester; Translations: [Unspecified infection of urinary tract in , first trimester ([facility])] Onset: 04-18-2024 Episodic Other complications of (1 source) Other specified related conditions, second trimester; Translations: [Other specified related conditions, second trimester] Onset: 09-29-2024 Episodic Other female genital disorders (20 sources) Vaginal discharge; Translations: [Leukorrhea, not specified as infective] Onset: 05-07-2024 Resolved: 07-13-2024 Episodic Other female genital disorders (4 sources) Other specified noninflammatory disorders of vagina; Translations: [Other specified noninflammatory disorders of vagina] Onset: 08-17-2022 Episodic Other infections; including parasitic (20 sources) History of sexually transmitted disease; Translations: [Personal history of other infectious and parasitic diseases] Onset: 05-07-2024 Resolved: 10-04-2024 05-07-2024 Episodic Other infections; including parasitic (20 sources) H/O: infectious disease; Translations: [Personal history of other infectious and parasitic diseases] Onset: 05-07-2024 05-07-2024 Episodic Other infections; including parasitic (1 source) Personal history of other infectious and parasitic diseases; Translations: [History of herpes genitalis] Onset: 11-25-2024 Episodic Other inflammatory condition of skin (1 source) Pruritus, unspecified; Translations: [ pruritus, third trimester (HCC)] Onset: 11-05-2024 Episodic Other lower respiratory disease (20 sources) [...] neoplasms of cervix] Onset: 06-15-2024 05-07-2024 Episodic Other skin disorders (16 sources) Necrobiosis lipoidica; 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, not elsewhere classified] Onset: 07-10-2023 07-10-2023 Episodic Polyhydramnios and other problems of amniotic [...] Comment on above: 02/20/2018; Residual codes; unclassified (10 sources) First trimester ; Translations: [Less than [...] Onset: 05-07-2024 05-07-2024 Episodic Residual codes; unclassified (1 source) 38 [...] 10-28-2024 Episodic Residual codes; unclassified (1 source) Personal history of other complications of , childbirth and the puerperium; Translations: [History of pre-eclampsia] Onset: 06-15-2024 Episodic Residual codes; unclassified (1 source) 31 weeks gestation of ; Translations: [31 weeks gestation of (HCC)] Onset: 10-18-2024 Episodic Residual codes; unclassified (1 source) 29 weeks gestation of ; Translations: [29 weeks gestation of ([facility])] Onset: 10-04-2024 Episodic Residual codes; unclassified (1 source) 27 weeks gestation of ; Translations: [27 weeks gestation of ([facility])] Onset: 09-24-2024 Episodic Residual codes; unclassified (1 [...] weeks gestation of ] Onset: 06-15-2024 Episodic Residual codes; unclassified (2 sources) Less than 8 weeks gestation of ; Translations: [7 weeks gestation of ] Onset: 04-28-2024 Episodic Screening and history of mental health [...] of vulva and vagina] Onset: 08-17-2022 Unclassified (8 sources) Onset: 04-28-2024 Resolved: 03-09-2025 04-28-2024 Unclassified (1 source) Cough, unspecified; Translations: [Cough, unspecified] Onset: 02-21-2025 Viral infection (20 sources) Herpes simplex; Translations: [Herpes simplex without mention of complication] Onset: 07-11-2022 Resolved: 07-11-2022 07-11-2022 Episodic NEGATED: Highlighted row has not occurred!Residual codes; unclassified (18 sources) Disease Episodic Results Test Name Value Interpretation Reference Range [facility] C[facility]N Normal [facility] SARS-COV-2 RAPID AG (WIC)on 02-22-2025 SARS-CoV-2 (COVID-19) RNA SUMIT+probe Ql (Unsp spec) Not detected Normal NOT DETECTED [facility] Comment on above: Result Comment: Nega tive results should be treated as presumptive and confirmation with a molecular assay, if necessary, for patient management, may be performed. Negative results do not rule out SARSCoV-2 infection and should not be used as the sole basis for treatment or patient management decisions, including infection control decisions. Negative results should be considered in the context of a patient's recent exposures, history and the presence of clinical signs and symptoms consistent with COVID-19. Performed By: #### C COVAG #### [place] [address] NARRATIVE This test was perfor med using lateral flow immunoassay. This test does not differentiate between SARS-CoV and SARS-CoV2. Normal [facility] Comment on above: Performed By: #### C COVAG #### [place] [address] POCT INFLUENZA, A Bon 2024 FLUAV RNA SUMIT+probe Ql (Unsp spec) Negative Negative, Not Tested, Invalid, Not Detected [facility] FLUBV RNA SUMIT+probe Ql (Unsp spec) Negative Negative, Not Tested, Invalid, Not Detected [facility] Interpretation and review of laboratory results Normal [facility] SARS-COV-2 RAPID AGon 2024 SARS-CoV-2 (COVID-19) RNA SUMIT+probe Ql (Unsp spec) [id number] Normal NOT DETECTED [facility] Comment on above: Performed By: #### C OVAG #### [place] [address] NARRATIVE This test was perfor med using lateral flow immunoassay. This test does not differentiate between SARS-CoV and SARS-CoV2. Normal [facility] Comment on above: Performed By: #### C OVAG #### [place] [address] SARS-COV-2 RAPID ANTIGENon 0 02-21-2025 SARS-CoV-2 (COVID-19) RNA SUMIT+probe Ql (Unsp spec) This test was performed using lateral flow immunoassay. This test does not differentiate between SARS-CoV and SARS-CoV2. [facility] SARS-CoV-2 (COVID-19) RNA NA A+probe Ql (Unsp spec)on 02-21-2025 SARS-CoV-2 (COVID-19) Ag IA.rapid Ql (Resp) [id number] NOT DETECTED [facility] CNOVon 02-19-2025 CNOV Normal [facility] UA DIP,URINE HCG (POC)on Beta HCG ( test) Ql (U) Negative Negative [facility] Security Director (POCT) Internal QC OK [facility] Location:[facility], [address] [place] [address], [place], [address] [facility] POINT OF CARE [facility] CNPNon 02-01-2025 CNPN Normal [facility] CBCon 01-29-2025 ABSOLUTE BAS 0.1 10*3/uL Normal 0.0-0.2 [facility] Comment on above: Performed By: #### C MPF, ACBC #### Testing performed at [place] [id number] ABSOLUTE EOS 0.1 10*3/uL Normal 0.0-0.7 [facility] Comment on above: Performed By: #### C MPF, ACBC #### Testing performed at [address] [place] [address] ABSOLUTE NEUTROPHIL COUNT 6.2 10*3/uL Normal 1.4-6.5 [facility] Comment on above: Performed By: #### C MPF, ACBC #### Testing performed at [address] [place] [address] Basophils/100 WBC (Bld) 0.7 % Normal 0.0-2.0 [facility] Comment on above: Performed By: #### C MPF, ACBC #### Testing performed at [address] [place] [address] DTYPE AUTO DIFF Normal [facility] Comment on above: Performed By: #### C MPF, ACBC #### Testing performed at [address] [place] [address] Eosinophils/100 WBC (Bld) 1.4 % Normal 0.0-11.0 [facility] Comment on above: Performed By: #### C MPF, ACBC #### Testing performed at [address] [place] [address] Lymphocytes (Bld) [#/Vol] 2.1 10*3/uL Normal 1.2-3.4 [facility] Comment on above: Performed By: #### C MPF, ACBC #### Testing performed at [address] [place] [address] Lymphocytes/100 WBC (Bld) 23.1 % Normal 20.0-55.0 [facility] Comment on above: Performed By: #### C MPF, ACBC #### Testing performed at [address] [place] [address] Monocytes (Bld) [#/Vol] 0.5 10*3/uL Normal 0.0-0.7 [facility] Comment on above: Performed By: #### C MPF, ACBC #### Testing performed at [address] [place] [address] Monocytes/100 WBC (Bld) 5.8 % Normal 0.0-10.0 [facility] Comment on above: Performed By: #### C MPF, ACBC #### Testing performed at [address] [address] Neutrophils/100 WBC (Bld) 69.0 % Normal 37.0-75.0 [facility] Comment on above: Performed By: #### C MPF, ACBC #### Testing performed at [address] [address] Erythrocyte distribution width (RBC) [Ratio] 14.0 % Normal 11.5-14.5 [facility] Comment on above: Performed By: #### C MPF, ACBC #### Testing performed at [address] [address] Hematocrit (Bld) [Volume fraction] 41.1 % Normal 36.0-48.0 [facility] Comment on above: Performed By: #### C MPF, ACBC #### Testing performed at [address] [address] Hemoglobin (Bld) [Mass/Vol] 14.2 g/dL Normal 12.0-16.0 [facility] Comment on above: Performed By: #### C MPF, ACBC #### Testing performed at [address] [address] MCH (RBC) [Entitic mass] 28.3 pg Normal 26.0-35.0 [facility] Comment on above: Performed By: #### C MPF, ACBC #### Testing performed at [address] [address] MCHC (RBC) [Mass/Vol] 34.5 g/dL Normal 27.0-37.0 [facility] Comment on above: Performed By: #### C MPF, ACBC #### Testing performed at [address] [address] MCV (RBC) [Entitic vol] 82.1 fL Normal 80.0-100.0 [facility] Comment on above: Performed By: #### C MPF, ACBC #### Testing performed at [address] [address] Platelet mean volume (Bld) [Entitic vol] 9.8 fL Normal 7.4-11.0 [facility] Comment on above: Performed By: #### C MPF, ACBC #### Testing performed at [address] [address] Platelets (Bld) [#/Vol] 307 10*3/uL Normal 130-400 [facility] Comment on above: Performed By: #### C MPF, ACBC #### Testing performed at [address] [address] RBC (Bld) [#/Vol] 5.01 10*6/uL Normal 4.0-5.4 [facility] Comment on above: Performed By: #### C MPF, ACBC #### Testing performed at [address] [address] WBC (Bld) [#/Vol] 9.1 10*3/uL Normal 3.6-11.0 [facility] Comment on above: Performed By: #### C MPF, ACBC #### Testing performed at [address] [address] CMP FASTINGon 01-29-2025 A:G RATIO 1.4 RATIO Normal [facility] Comment on above: Performed By: #### C MPF, ACBC #### Testing performed at [address] [address] Albumin [Mass/Vol] 4.8 g/dL Normal 3.5-5.0 [facility] Comment on above: Performed By: #### C MPF, ACBC #### Testing performed at [address] [address] ALP [Catalytic activity/Vol] 107 U/L Normal 38-126 [facility] Comment on above: Performed By: #### C MPF, ACBC #### Testing performed at [address] [address] ALT [Catalytic activity/Vol] 59 U/L High <35 [facility] Comment on above: Performed By: #### C MPF, ACBC #### Testing performed at [address] [address] AST [Catalytic activity/Vol] 30 U/L Normal 14-36 [facility] Comment on above: Performed By: #### C MPF, ACBC #### Testing performed at [address] [address] Bilirubin [Mass/Vol] 0.9 mg/dL Normal 0.2-1.3 [facility] Comment on above: Performed By: #### C MPF, ACBC #### Testing performed at [address] [address] Calcium [Mass/Vol] 9.8 mg/dL Normal 8.4-10.2 [facility] Comment on above: Performed By: #### C MPF, ACBC #### Testing performed at [address] [address] Chloride [Moles/Vol] 105 mmol/L Normal 98-107 [facility] Comment on above: Result Comment: Carson barker note: Triglyceride levels of 600mg/dL or higher may positively bias chloride results by approximately 2.1 mmol Performed By: #### C MPF, ACBC #### Testing performed at [address] [address] CO2 [Moles/Vol] 15 mmol/L Critically low 22-30 [facility] Comment on above: Result Comment: Resu lt called to read back by: Maricel OTTO 01/29/2025 @ 21:45 by [facility] Performed By: #### C MPF, ACBC #### Testing performed at [address] [address] Creatinine [Mass/Vol] 0.60 mg/dL Low 0.70-1.20 [facility] Comment on above: Performed By: #### C MPF, ACBC #### Testing performed at [address] [place] [address] GFR Information Average GFR for 30-3 9 years old = 107. Normal [facility] Comment on above: Result Comment: It Senior Analyst andres Kidney disease, GFR = <60. Kidney failure, GFR = <15. The GFR estimate is not adjusted for extreme body surface area or acute process, nor has it been validated for women or ethnic groups other than and . MDRD Equation Performed By: #### C MPF, ACBC #### Testing performed at [address] [address] GFR/1.73 sq M.predicted MDRD (S/P/Bld) [Vol rate/Area] 125 mL/min/{1.73_m2} Normal [facility] Comment on above: Performed By: #### C MPF, ACBC #### Testing performed at [address] [address] Glucose [Mass/Vol] 189 mg/dL High 70-100 [facility] Comment on above: Result Comment: NORMAL <100 mg/dL PREDIABETES 101-126 mg/dL DIABETES 126 mg/dL or higher Performed By: #### C MPF, ACBC #### Testing performed at [address] [address] Potassium [Moles/Vol] 3.5 mmol/L Normal 3.5-5.1 [facility] Comment on above: Performed By: #### C MPF, ACBC #### Testing performed at [address] [address] Protein [Mass/Vol] 8.2 g/dL Normal 6.3-8.2 [facility] Comment on above: Performed By: #### C MPF, ACBC #### Testing performed at [address] [address] Sodium [Moles/Vol] 139 mmol/L Normal 137-145 [facility] Comment on above: Performed By: #### C MPF, ACBC #### Testing performed at [address] [address] Urea nitrogen [Mass/Vol] 7 mg/dL Normal 7-20 [facility] Comment on above: Performed By: #### C MPF, ACBC #### Testing performed at [address] [address] TROPONIN I, HIGH SENSITIVITY on 01-29-2025 TROPONIN I, HIGH SENSITIVITY 3 pg/mL Normal 0-12 [facility] Comment on above: Result Comment: Indeterminant: >12 to 100 pg/mL female >20 to 100 pg/mL male Indicative of myocardial injury. Serial sampling is recommended, a change of greater than or equal to 20 pg/mL is indicative of acute coronary syndrome. Performed By: #### T ROHS #### Testing performed at [facility] [address] [place] [address] CNOVon 01-28-2025 CNOV Normal [facility] GLUCOSE, BLOOD (POC)on 01-28 Glucose [Mass/Vol] 170 mg/dL Abnormal 74 - 99 mg/dL [facility] Comment on above: Glu2: Result Confirm ed Location:[address], [place], [address] The Accu-Chek Inform II glucose meter has not been approved for testing on patients receiving intensive medical intervention or therapy and results from this point of care glucose test should not be used for patient management decisions in these cases. Inaccurate results may also occur from other interfering factors, such as N-acetylcysteine (blood concentrations of greater than 5mg/dL), galactose, extremes of hematocrit (<10 or >65), or high doses of ascorbic acid (vitamin C) greater than 3mg/dL. Consider alternate testing mechanisms (e.g. core lab, blood gas instrument) in the above situations. Interpretation and review of laboratory results Abnormal [facility] CNPNon 2025 CNPN Normal [facility] Absolute lymphocyte countOrd ered By: Remus Ungdevin on 01-26-2025 Lymphocytes Auto (Unsp spec) [#/Vol] 1.75 10*3/uL 0.83-4.51 [facility] Absolute neutrophil countOrd ered By: Remus Ungur on 01-26-2025 Neutrophils (Bld) [#/Vol] 7.9 10*3/uL High 2.0-7.7 [facility] Anion gap in Serum or Plasma Ordered By: Remus Ungur on 01-26-2025 Anion gap [Moles/Vol] 19 mmol/L High 5-15 [facility] Automated lymphocyte count a s percentage of total leukocytesOrdered By: Remus Ungur on 01-26-2025 Lymphocytes/100 WBC Auto (Unsp spec) 16.9 % Low 19-41 [facility] BUN/creatinine ratioOrdered By: Remus Ungur on 01-26-2025 Urea nitrogen/Creatinine [Mass ratio] 10.6 mg/mg 10-20 [facility] Basophil percentageOrdered B y: Remus Ungur on 01-26-2025 Basophils/100 WBC (Bld) 0.5 % 0-1 [facility] Bilirubin Test strip Ql (U)O rdered By: Shelia Ortega on 01-26-2025 Bilirubin Ql (U) Negative Negative [facility] Bilirubin, totalOrdered By: Shelia Ortega on 01-26-2025 Bilirubin [Mass/Vol] 0.51 mg/dL 0.00-1.30 [facility] CBC W/Diff, Automatedon 01-08 Absolute Lymph 1.75 X10 3/uL Normal 0.83-4.51 [facility] Comment on above: Performed By: #### Jo KWON, L100.0100 #### [facility] [address] [place], [address] Absolute Neut 7.9 X10 3/uL High 2.0-7.7 [facility] Comment on above: Performed By: #### Jo KWON, L100.0100 #### [facility] [address] [place], [address] Basophils/100 WBC (Bld) 0.5 % Normal 0-1 [facility] Comment on above: Performed By: #### Jo KWON, L100.0100 #### [facility] [address] [place], [address] Eosinophils/100 WBC (Bld) 0.8 % Normal 0-5 [facility] Comment on above: Performed By: #### Jo KWON, L100.0100 #### [facility] [address] [place], [address] Erythrocyte distribution width (RBC) [Ratio] 12.6 % Normal 11.6-14.6 [facility] Comment on above: Performed By: #### Jo KWON, L100.0100 #### [facility] [address] [place], [address] Hematocrit (Bld) [Volume fraction] 37.0 % Normal 37-47 [facility] Comment on above: Performed By: #### Jo KWON, L100.0100 #### [facility] [address] [place], [address] Hemoglobin (Bld) [Mass/Vol] 12.7 g/dL Normal 12.0-15.0 [facility] Comment on above: Performed By: #### Jo KWON, L100.0100 #### [facility] [address] [place], [address] IG% 0.300 Normal 0.0-0.9 [facility] Comment on above: Result Comment: IG% - Immature Granulocytes (promyelocytes, myelocytes and metamyelocytes) > 1% indicates that a LEFT SHIFT is Present. Performed By: #### Jo KWON, L100.0100 #### [facility] [address] [place], [address] Lymphocytes/100 WBC (Bld) 16.9 % Low 19-41 [facility] Comment on above: Performed By: #### Jo KWON, L100.0100 #### [facility] [address] [place], [address] MCH (RBC) [Entitic mass] 28.6 pg Normal 27.0-32.0 [facility] Comment on above: Performed By: #### Jo KWON, L100.0100 #### [facility] [address] [place], [address] MCHC (RBC) [Mass/Vol] 34.3 g/dL Normal 32-36 [facility] Comment on above: Performed By: #### Jo KWON, L100.0100 #### [facility] [address] [place], [address] MCV (RBC) [Entitic vol] 83.3 fL Normal 81-99 [facility] Comment on above: Performed By: #### Jo KWON, L100.0100 #### [facility] [address] [place], [address] Monocytes/100 WBC (Bld) 5.3 % Normal 0-10 [facility] Comment on above: Performed By: #### Jo KWON, L100.0100 #### [facility] [address] [place], [address] Neutrophils/100 WBC (Bld) 76.2 % High 47-70 [facility] Comment on above: Performed By: #### Jo KWON, L100.0100 #### [facility] [address] [place], [address] Nucleated RBC (Bld) [#/Vol] 0 10*3/uL Normal 0-5 [facility] Comment on above: Performed By: #### Jo KWON, L100.0100 #### [facility] [address] [place], [address] Platelet mean volume (Bld) [Entitic vol] 9.6 fL Normal 6.2-12.0 [facility] Comment on above: Performed By: #### Jo KWON, L100.0100 #### [facility] [address] [place], [address] Platelets (Bld) [#/Vol] 335 10*3/uL Normal 150-450 [facility] Comment on above: Performed By: #### Jo KWON, L100.0100 #### [facility] [address] [place], [address] RBC (Bld) [#/Vol] 4.44 10*6/uL Normal 4.2-5.4 [facility] Comment on above: Performed By: #### Jo KWON, L100.0100 #### [facility] [address] [place], [address] RDW SD 38.0 fl Normal 35.1-43.9 [facility] Comment on above: Performed By: #### Jo KWON, L100.0100 #### [facility] [address] [place], [address] WBC (Bld) [#/Vol] 10.3 10*3/uL Normal 4.4-11.0 [facility] Comment on above: Performed By: #### B TS, L100.0100 #### [facility] [address] [place], [address] Carbon dioxide, total [Moles /volume] in Central venous bloodOrdered By: Shelia Ortega on 01-26-2025 CO2 [Moles/Vol] 17.5 mmol/L Low 21.0-32.0 [facility] Chloride assayOrdered By: Re teddy Ortega on 01-26-2025 Chloride [Moles/Vol] 101 mmol/L 98-108 [facility] Comprehensive Metabolic Prof ilon 01-26-2025 Albumin [Mass/Vol] 4.2 g/dL Normal 3.5-5.0 [facility] Comment on above: Performed By: #### B SHYANN, L100.0100 #### [facility] [address] [place], [address] Albumin/Globulin [Mass ratio] 1.3 {ratio} Normal 0.9-2.4 [facility] Comment on above: Performed By: #### B SHYANN, L100.0100 #### [facility] [address] [place], [address] ALK PHOS 99 U/L Normal 35-104 [facility] Comment on above: Performed By: #### B SHYANN, L100.0100 #### [facility] [address] [place], [address] ALT [Catalytic activity/Vol] 44 U/L High <=34 [facility] Comment on above: Performed By: #### B SHYANN, L100.0100 #### [facility] [address] [place], [address] AST [Catalytic activity/Vol] 25 U/L Normal <=31 [facility] Comment on above: Result Comment: Hemo lysis present, Results??could be affected. ?? Performed By: #### Jo KWON, L100.0100 #### [facility] [address] [place], [address] Bilirubin [Mass/Vol] 0.51 mg/dL Normal 0.00-1.30 [facility] Comment on above: Performed By: #### Jo KWON, L100.0100 #### [facility] [address] [place], [address] BUN/CRE 10.6 RATIO Normal 10-20 [facility] Comment on above: Performed By: #### Jo KWON, L100.0100 #### [facility] [address] [place], [address] Calcium [Mass/Vol] 9.4 mg/dL Normal 7.6-11.0 [facility] Comment on above: Performed By: #### Jo KWON, L100.0100 #### [facility] [address] [place], [address] Chloride [Moles/Vol] 101 mmol/L Normal 98-108 [facility] Comment on above: Performed By: #### Jo KWON, L100.0100 #### [facility] [address] [place], [address] CO2 [Moles/Vol] 17.5 mmol/L Low 21.0-32.0 [facility] Comment on above: Performed By: #### Jo KWON, L100.0100 #### [facility] [address] [place], [address] Creatinine [Mass/Vol] 0.56 mg/dL Low 0.70-1.20 [facility] Comment on above: Performed By: #### Jo KWON, L100.0100 #### [facility] [address] [place], [address] ECRCL 153.13 ml/min Normal 50-250 [facility] Comment on above: Performed By: #### Jo KWON, L100.0100 #### [facility] [address] [place], [address] GAP 19 High 5-15 [facility] Comment on above: Performed By: #### Jo KWON, L100.0100 #### [facility] [address] [place], [address] GFR/1.73 sq M.predicted among non-blacks MDRD (S/P/Bld) [Vol rate/Area] 127 mL/min/{1.73_m2} Normal >60 [facility] Comment on above: Result Comment: mL/m in/1.73m2 CKD-EPI Creatinine Equation (2020) Performed By: #### Jo KWON, L100.0100 #### [facility] [address] [place], [address] Globulin (S) [Mass/Vol] 3.3 g/dL Normal 2.2-4.2 [facility] Comment on above: Performed By: #### Jo KWON, L100.0100 #### [facility] [address] [place], [address] Glucose [Mass/Vol] 198 mg/dL High 70-99 [facility] Comment on above: Performed By: #### Jo KWON, L100.0100 #### [facility] [address] [place], [address] Potassium [Moles/Vol] 3.6 mmol/L Normal 3.3-5.1 [facility] Comment on above: Result Comment: Hemo lysis present, Results??could be affected. ?? Performed By: #### Jo KWON, L100.0100 #### [facility] [address] [place], [address] Sodium [Moles/Vol] 137 mmol/L Normal 133-145 [facility] Comment on above: Performed By: #### B TS, L100.0100 #### [facility] [address] [place], [place], [address] T PROT 7.5 g/dL Normal 5.9-8.4 [facility] Comment on above: Performed By: #### B TS, L100.0100 #### [facility] [address] [place], [address] Urea nitrogen [Mass/Vol] 6 mg/dL Normal 4-19 [facility] Comment on above: Performed By: #### B TS, L100.0100 #### [facility] [address] [place], [address] Emergency Department Summary on 01-26-2025 Emergency Department Summary [facility] Medical Records Department [address] [place] [address] Emergency Department Summary 01/26/25 MR#: [id number] Acct: [id number] Name: MELISSA BYRNE Rep #: [id number] : 1995 29 From: Shelia Ortega DO PCP: Dr. Jamari Byrne MD Status:DEP ER Location: ED HPI History of Present Illness Chief Complaint: Nausea/Vomiting Detail of Chief Complaint: Nausea, vomiting, diarrhea Informant: patient Narrative Narrative: Patient presents with nausea and vomiting x 6 days. Her period started about 5 days ago. Patient gave on December 07. She denies abdominal pain. She started with some diarrhea yesterday. She has had no fever. Denies dysuria urgency or frequency. She states that she has vomited once or twice a day. No blood in her stool or vomit. Patient thought she was having .. [facility]. [facility] Medical History Wears dentures Wears glasses Bipolar disorder Depression Anxiety Arthritis Gastric reflux Smoker Insulin dependent diabetes mellitus PONV (postoperative nausea and vomiting) Asthma Osteoarthritis Diabetes Home Medications ???Medication ???Instructions ???Recorded ???Last Taken ???Type buspirone 15 mg tablet 15 mg PO QDAY anxiety 02/26/2404/02 History albuterol sulfate 90 mcg/actuation 1 - 2 puff inhalation PRN PRN 11/01/24 15:57 History aerosol inhaler shortness of breath or wheezing fluoxetine 20 mg capsule 20 mg PO DAILY anxiety 11/15/24 History insulin lispro 100 unit/mL 8 unit subcut TID 12/16/24 Unknown History subcutaneous pen (Humalog KwikPen (U-100) Insulin) insulin NPH isoph U-100 human 100 20 unit subcut QHS 01/21/25 Unkno wn History unit/mL (3 mL) subcutaneous pen (Humulin N NPH U-100 Insulin KwikPen) ondansetron 4 mg disintegrating 4 mg PO Q6H PRN nausea and 5 Unknown Rx tablet vomiting #7 tabs promethazine 25 mg tablet 25 mg PO TID PRN nausea and Unknown Rx vomiting #10 tabs Allergy/AdvReac Type Severity Reaction Status Date / Time aripiprazole (From Abilify) AdvReac Other Verified 01/26/25 18:44 metoclopramide (From Reglan) AdvReac Other Verified 01/26/25 18:44 ondansetron (From Zofran) AdvReac Vomiting Verified 01/26/25 18:44 quetiapine (From Seroquel) AdvReac Other Verified 01/26/25 18:44 sertraline (From Zoloft) AdvReac Other Verified 01/26/25 18:44 Family History Other Heart disease Hyperlipemia Surgical History History of dilation and curettage History of oral surgery History of cholecystectomy Social History Smoking Status: Current every day smoker tobacco type: cigarettes alcohol intake: never substance use type: does not use ROS ROS ED Review of Systems ROS Unobtainable: other Constitutional Constitutional ED: Reports lethargy; Denies chills, fever(s), sweats or weight loss Eyes Eyes: Denies blurry vision, change in vision or diplopia ENT ENT ED: Denies rhinorrhea or sore throat Cardiovascular Cardiovascular: Denies chest pain, orthopnea or racing heartbeat Respiratory/Chest Respiratory/Chest: Denies cough, dyspnea, dyspnea on exertion, orthopnea or sputum Gastrointestinal Gastrointestinal: Reports diarrhea, nausea and vomiting; Denies abdominal pain Genitourinary Genitourinary ED: Denies dysuria, hematuria or urinary frequency Musculoskeletal Musculoskeletal: Denies arthralgias, back pain, myalgias or neck pain Integumentary Denies abscess, Abrasions or rash Neurologic Neurologic: Denies headache(s) or weakness Psychiatric Psychiatric: Denies anxiety, depression or suicidal thoughts Endocrine Endocrinology: Denies polydipsia, polyphagia or polyuria Hematologic/Lymphatic Hematologic/Lymphatic: Denies easy bleeding, easy bruising or lymphadenopathy Allergic/Immunologic Allergic/Immunologic ED: Denies mouth swelling, tongue swelling or urticaria EXAM Physical Exam Const Vital Signs: 01/26/25 18:44 01/26/25 18:55 01/26/25 20:44 Temperature 98.8 F 97.9 F Temperature Source Oral Oral Pulse Rate 125 H 84 Respiratory Rate 18 18 Respiratory Effort Normal Non-Labored Short of Breath Respiratory Depth Normal Respiratory Pattern Normal Blood Pressure 145/94 H 132/77 H Blood Pressure Mean 111 95 Pulse Ox 98 100 Oxygen Delivery Method Room Air Room Air Room Air Positive well nourished and well developed General Appearance ED: well developed and NAD HEENT Reports TM's clear and moist mucous membranes normocephalic and atraumatic; Negative for trauma or tenderness Tympanic Membrane ED: Yes (more content not included)... Normal [facility] Eosinophil percentageOrdered By: Shelia Ortega on 01-26-2025 Eosinophils/100 WBC (Bld) 0.8 % 0-5 [facility] Erythrocyte distribution wid th ratioOrdered By: Shelia Ortega on 01-26-2025 Erythrocyte distribution width (RBC) [Ratio] 12.6 % 11.6-14.6 [facility] Erythrocyte distribution wid th standard deviationOrdered By: Shelia Ortega on 01-26-2025 Erythrocyte distribution width (RBC) [Ratio] 38.0 fl 35.1-43.9 [facility] Glomerular filtration rate ( GFR) estimation/1.73 sq m using serum, plasma, or whole bOrdered By: Shelia Ortega on 01-26-2025 GFR/1.73 sq M.predicted among non-blacks MDRD (S/P/Bld) [Vol rate/Area] 127 mL/min/{1.73_m2} >60 [facility] Comment on above: mL/min/1.73m2 CKD-EP I Creatinine Equation (2020) Hematocrit Auto (Bld) [Volum e fraction]Ordered By: Shelia Ortega on 01-26-2025 Hematocrit (Bld) [Volume fraction] 37.0 % 37-47 [facility] Hemoglobin measurementOrdere d By: Shelia Ortega on 01-26-2025 Hemoglobin (Bld) [Mass/Vol] 12.7 g/dL 12.0-15.0 [facility] Immature granulocytes/100 WB C Auto (Bld)Ordered By: Shelia Ortega on 01-26-2025 Immature granulocytes/100 WBC (Bld) 0.300 % 0.0-0.9 [facility] Comment on above: IG% - Immature Granu locytes (promyelocytes, myelocytes and metamyelocytes) > 1% indicates that a LEFT SHIFT is Present. Ketones Test strip Ql (U)Ord ered By: Shelia Ortega on 01-26-2025 Ketones Ql (U) 150 mg/dl Abnormal Negative [facility] Comment on above: CRITICAL VALUE CASILLAS D TO ONIEL [id number]/26/[id number] Dxaa Rangel.RESULTS READ BACK BY SAME. Laboratory - Chemistry and C hemistry - challengeOrdered By: Shelia Ortega on 01-26-2025 AST [Catalytic activity/Vol] 25 U/L <32 [facility] Comment on above: Hemolysis present, R esults could be affected. MCV (mean corpuscular volume ) determinationOrdered By: Shelia Ortega on 01-26-2025 MCV (RBC) [Entitic vol] 83.3 fL 81-99 [facility] Mean corpuscular hemoglobin (MCH) determinationOrdered By: Shelia Ortega on 01-26-2025 MCH (RBC) [Entitic mass] 28.6 pg 27.0-32.0 [facility] Mean corpuscular hemoglobin concentration (MCHC) determinationOrdered By: Shelia Ortega on 01-26-2025 MCHC (RBC) [Mass/Vol] 34.3 g/dL 32-36 [facility] Mean platelet volume determi nationOrdered By: Shelia Ortega on 01-26-2025 Platelet mean volume (Bld) [Entitic vol] 9.6 fL 6.2-12.0 [facility] Microscopic analysis of urin e for red blood cells (RBC)Ordered By: Shelia Ortega on 01-26-2025 Microscopic analysis of urine for red blood cells (RBC) 10-25 SEEN /hpf 0-5 [facility] Monocyte percentageOrdered B y: Shelia Ortega on 01-26-2025 Monocytes/100 WBC (Bld) 5.3 % 0-10 [facility] Mucus LM Ql (Urine sed)Order ed By: Shelia Ortega on 01-26-2025 Mucus Ql (Urine sed) 0 SEEN /hpf [facility] Neutrophil percentageOrdered By: Shelia Ortega on 01-26-2025 Neutrophils/100 WBC (Bld) 76.2 % High 47-70 [facility] Nitrite Test strip Ql (U)Ord ered By: Shelia Ortega on 01-26-2025 Nitrite Ql (U) Negative Negative [facility] Nucleated red blood cell per centageOrdered By: Shelia Ortega on 01-26-2025 Nucleated RBC/100 WBC (Bld) [Ratio] 0 % 0-5 [facility] Platelet countOrdered By: Rosina Ortega on 01-26-2025 Platelets (Bld) [#/Vol] 335 10*3/uL 150-450 [facility] Potassium measurement (mass/ volume)Ordered By: Shelia Ortega on 01-26-2025 Potassium (Unsp spec) [Mass/Vol] 3.6 mmol/L 3.3-5.1 [facility] Comment on above: Hemolysis present, R esults could be affected. ,Serum,hCG Quali.on 01-26-2025 HCG, SERUM QUAL Negative Normal [facility] Comment on above: Performed By: #### B TS, L100.0100 #### [facility] [place], [address] Protein Test strip Ql (U)Ord ered By: Shelia Ortega on 01-26-2025 Protein Ql (U) 30 mg/dl High Negative [facility] RBC Auto (Bld) [#/Vol]Ordere d By: Shelia Ortega on 01-26-2025 RBC (Bld) [#/Vol] 4.44 10*6/uL 4.2-5.4 [facility] Serum beta-hCG test, qualita tiveOrdered By: Shelia Ortega on 01-26-2025 Beta HCG ( test) Ql Negative [facility] Serum creatinine measurement (mass/volume)Ordered By: Shelia Ortega on 01-26-2025 Creatinine [Mass/Vol] 0.56 mg/dL Low 0.70-1.20 [facility] Serum globulin measurementOr dered By: Shelia Ortega on 01-26-2025 Globulin (S) [Mass/Vol] 3.3 g/dL 2.2-4.2 [facility] Serum glucose measurement (m ass/volume)Ordered By: Shelia Ortega on 01-26-2025 Glucose [Mass/Vol] 198 mg/dL High 70-99 [facility] Serum or plasma alanine schafer otransferase (ALT) measurementOrdered By: Shelia Ortega on 01-26-2025 ALT [Catalytic activity/Vol] 44 U/L High <35 [facility] Serum or plasma albumin patrick urement (mass/volume)Ordered By: Shelia Ortega on 01-26-2025 Albumin [Mass/Vol] 4.2 g/dL 3.5-5.0 [facility] Serum or plasma albumin/glob ulin mass ratioOrdered By: Shelia Ortega on 01-26-2025 Albumin/Globulin [Mass ratio] 1.3 {ratio} 0.9-2.4 [facility] Serum or plasma alkaline anaid sphatase measurementOrdered By: Shelia Ortega on 01-26-2025 ALP [Catalytic activity/Vol] 99 U/L 35-104 [facility] Serum or plasma calcium patrick urement (mass/volume)Ordered By: Shelia Ortega on 01-26-2025 Calcium [Mass/Vol] 9.4 mg/dL 7.6-11.0 [facility] Serum or plasma urea nitroge n measurement (mass/volume)Ordered By: Remus Ungdevin on 01-26-2025 Urea nitrogen [Mass/Vol] 6 mg/dL 4-19 [facility] Sodium levelOrdered By: Remu s Ungur on 01-26-2025 Sodium [Moles/Vol] 137 mmol/L 133-145 [facility] Squamous epithelial cells de tection in urine sediment by light microscopyOrdered By: Remus Ungdevin on 01-26-2025 Epithelial cells.squamous LM Ql (Urine sed) 0-5 SEEN /hpf - [facility] Total proteinOrdered By: Rem us Ungur on 01-26-2025 Protein [Mass/Vol] 7.5 g/dL 5.9-8.4 [facility] Urinalysis, Completeon 01-26 EPI,SQUAMOUS 0-5 SEEN Normal - [facility] Comment on above: Order Comment: SAE CTOR TO SPECIFY Performed By: #### Jo KWON, L100.0100 #### [facility] [address] [place], [address] WBC 0-5 SEEN Normal 0-5 [facility] Comment on above: Order Comment: SAE CTOR TO SPECIFY Performed By: #### Jo KWON, L100.0100 #### [facility] [address] [place], [address] RBC 10-25 SEEN Normal 0-5 [facility] Comment on above: Order Comment: SAE CTOR TO SPECIFY Performed By: #### Jo KWON, L100.0100 #### [facility] [address] [place], [address] BACTERIA 0 SEEN Normal None Seen [facility] Comment on above: Order Comment: SAE CTOR TO SPECIFY Performed By: #### Jo KWON, L100.0100 #### [facility] [address] [place], [address] Mucus Ql (Urine sed) 0 SEEN Normal [facility] Comment on above: Order Comment: COLLE CTOR TO SPECIFY Performed By: #### B TS, L100.0100 #### [facility] [address] [place], [address] Urine clarityOrdered By: Rem us Ortega on 01-26-2025 Clarity (U) Sl. Cloudy Clear [facility] Urine color determinationOrd ered By: Shelia Ortega on 01-26-2025 Color (U) Yellow Yellow [facility] Urine glucose detectionOrder ed By: Shelia Ortega on 01-26-2025 Glucose Ql (U) Normal mg/dl Normal [facility] Urine leukocyte esterase det ection by dipstickOrdered By: Shelia Ortega on 01-26-2025 Leukocyte esterase Test strip Ql (U) 25 /ul High Negative [facility] Urine pHOrdered By: Shelia Un gur on 01-26-2025 pH (U) 6.0 [pH] 5.0 - 8.0 [facility] Urine sediment bacteria coun t by microscopy (number/high power field)Ordered By: Shelia Ortega on 01-26-2025 Bacteria LM.HPF (Urine sed) [#/Area] 0 /[HPF] None Seen [facility] Urine specific gravity measu rementOrdered By: Shelia Ortega on 01-26-2025 Specific gravity (U) [Rel density] 1.025 1.002-1.030 [facility] Urine urobilinogen measureme ntOrdered By: Shelia Ortega on 01-26-2025 Urobilinogen Ql (U) Normal mg/dl Normal [facility] White blood cell (WBC) count Ordered By: Shelia Ortega on 01-26-2025 WBC (Bld) [#/Vol] 10.3 10*3/uL 4.4-11.0 [facility] White blood cell countOrdere d By: Shelia Ortega on 01-26-2025 White blood cell count 0-5 SEEN /hpf 0-5 [facility] H AND P Exam - OB/GYNon 01-07 H&P Exam - RN STARS [facility] Medical Records Department [address] [place] [address] H P Exam - RN STARS 01/25/25 1317 MR#: [id number] Acct: [id number] Name: MELISSA BYRNE Rep #: [id number] : 1995 29 From: Whit Patel MD PCP: Dr. Jamari Byrne MD [place] [facility] [facility] History and Physical Date of Admission: 01/28/25 Expand All Collapse All Pre-Op History and Physical HPI: The patient is a 29 year old female presenting for pre-operative visit. She is scheduled for laparoscopic bilateral salpingectomy , for desires sterilization on 01/28/25. Procedure discussed along with risks, benefits and complications. Other alternatives discussed for management. Consent form signed? Yes. PAST MEDICAL HISTORY PAST MEDICAL HISTORY Diagnosis Date ??? Asthma ([facility]) ??? Bipolar ??? H/O macrosomia in in prior , currently ([facility]) 05/07/2024 ??? Herpes simplex type 2 (HSV-2) infection affecting , antepartum, unspecified trimester ([facility]) 04/19/2024 ??? Hyperlipidemia ??? LGA (large for gestational age) infant ([facility]) 12/23/2016 12/23/16 - >95% ??? Polyhydramnios ([facility]) 01/01/2017 ??? Pre-existing type 2 diabetes mellitus in in first trimester ([facility]) 06/15/2024 First trimester Hgb A1c 10.5%, now follows with Dr. Guillermo ??? Recurrent UTI ??? Type 2 diabetes mellitus ([facility]) PAST SURGICAL HISTORY PAST SURGICAL HISTORY Procedure Laterality Date ??? CHOLECYSTECTOMY ??? D C, DIAG AND/OR THERAPEUTIC 2018 CURRENT MEDICATIONS Current Outpatient Medications Medication Sig Dispense Refill ??? insulin NPH (HUMULIN N NPH INSULIN KWIKPEN) 100 unit/mL (3 mL) injection pen 90 units at bedtime 45 mL 11 ??? insulin lispro (HUMALOG KWIKPEN INSULIN) 100 unit/mL 23 -23 - 26 units prior to each meal respectively + scale (upto 100 units/day) 45 mL 11 ??? busPIRone (BUSPAR) 15 mg tablet ??? albuterol HFA (PROVENTIL HFA, VENTOLIN HFA) 90 mcg/actuation inhaler Inhale 2 Puffs as instructed every 6 hours as needed. ??? FLUoxetine (PROZAC) 40 mg capsule Take 20 mg by mouth. ??? albuterol HFA (PROVENTIL HFA, VENTOLIN HFA) 90 mcg/actuation inhaler Inhale 2 Puffs as instructed. ??? acyclovir (ZOVIRAX) 400 mg tablet Take 1 tablet by mouth two times a day. 60 tablet 3 ??? Insulin [place], Disposable, (BD ULTRAFINE III MINI PEN) 31 gauge x 3/16 4 TIMES/DAY 200 each 3 ??? lancets (TAKO DELICA PLUS LANCET) 30 gauge Use with blood glucose test four times a day. Insulin Dep? Yes 100 Each 11 ??? blood sugar diagnostic (TAKO VERIO TEST STRIPS) test strip Use as instructed - TEST BLOOD SUGARS 4 TIMES DAILY 150 Each 11 ??? Blood-Glucose Meter (TAKO VERIO FLEX METER) Use to check blood glucose 4 times daily. 1 Each 0 ??? VIT 10-IRON FUM-FOLIC ORAL Take by mouth. No current facility-administered medications for this visit. ALLERGIES: Aluminum-Magnesium Hydroxide, Aripiprazole, Quetiapine, Metoclopramide, Promethazine, Zofran [Ondansetron], and Zoloft [Sertraline] PERSONAL HISTORY: [SOCIAL HISTORY] [SOCIAL HISTORY] Social History Tobacco Use ??? Smoking status: Every Day Current packs/day: 0.50 Average packs/day: 0.5 packs/day for 14.0 years (7.0 ttl pk-yrs) Types: Cigarettes ??? Smokeless tobacco: Never Vaping Use ??? Vaping status: Never Used Substance Use Topics ??? Alcohol use: No ??? Drug use: No FAMILY HISTORY: FAMILY HISTORY FAMILY HISTORY Problem Relation Age of Onset ??? Hyperlipidemia Mother ??? Diabetes Mother ??? Hypertension Mother ??? other (neuropathy) Mother ??? Diabetes Father ??? Heart Father ??? Hypertension Father ??? Hyperlipidemia Father ??? Thyroid Sister ??? Multiple Sclerosis Sister ??? Depression Sister ??? Anxiety disorder Sister ??? other (carpal tunnel) Sister ??? Hyperlipidemia Brother ??? No Known Problems Brother ??? Heart Maternal Grandmother ??? Diabetes Maternal Grandfather ??? Obesity Maternal Grandfather ??? Diabetes Paternal Grandmother ??? Heart Attack Paternal Grandmother ??? Cancer Paternal Grandfather REVIEW OF SYMPTOMS: negative [...] bilateral salpingectomy Pt has been counseled on risks/bene (more content not included)... Normal [facility] CBC W Auto Differential pane l (Bld)on 01-24-2025 Basophils (Bld) [#/Vol] 0.05 10*3/uL [facility] Basophils/100 WBC (Bld) 0.6 % 0.0 - 2.0 % [facility] Eosinophils (Bld) [#/Vol] 0.09 10*3/uL [facility] Eosinophils/100 WBC (Bld) 1.1 % 0.0 - 6.0 % [facility] Erythrocyte distribution width (RBC) [Ratio] 12.6 % 11.5 - 14.5 % [facility] Hematocrit (Bld) [Volume fraction] 37.1 % 36.0 - 46.0 % [facility] Hemoglobin (Bld) [Mass/Vol] 12.6 g/dL 12.0 - 16.0 g/dL [facility] Immature granulocytes (Bld) [#/Vol] 0.03 10*3/uL [facility] Immature granulocytes/100 WBC (Bld) 0.4 % 0.0 - 0.9 % [facility] Comment on above: Immature Granulocyte Count (IG) includes promyelocytes, myelocytes and metamyelocytes but does not include bands. Percent differential counts (%) should be interpreted in the context of the absolute cell counts (cells/UL). Lymphocytes (Bld) [#/Vol] 1.80 10*3/uL [facility] Lymphocytes/100 WBC (Bld) 21.4 % 13.0 - 44.0 % [facility] MCH (RBC) [Entitic mass] 28.2 pg 26.0 - 34.0 pg [facility] MCHC (RBC) [Mass/Vol] 34.0 g/dL 32.0 - 36.0 g/dL [facility] MCV (RBC) [Entitic vol] 83 fL 80 - 100 fL [facility] Monocytes (Bld) [#/Vol] 0.48 10*3/uL [facility] Monocytes/100 WBC (Bld) 5.7 % 2.0 - 10.0 % [facility] Neutrophils (Bld) [#/Vol] 5.95 10*3/uL [facility] Comment on above: Percent differential counts (%) should be interpreted in the context of the absolute cell counts (cells/uL). Neutrophils/100 WBC (Bld) 70.8 % 40.0 - 80.0 % [facility] Nucleated RBC/100 WBC (Bld) [Ratio] 0.0 % [facility] Platelets (Bld) [#/Vol] 326 10*3/uL [facility] RBC (Bld) [#/Vol] 4.47 10*6/uL [facility] WBC (Bld) [#/Vol] 8.4 10*3/uL [facility] Basophils (Bld) [#/Vol] 0.05 x10*3/uL Normal 0.00-0.10 [facility] Comment on above: Performed By: #### 5 8077-9 #### JACQUELYN LOPEZ ([id number]) [facility] ([facility]) [address] [place] [address] Basophils/100 WBC (Bld) 0.6 % Normal 0.0-2.0 [facility] Comment on above: Performed By: #### 5 8077-9 #### JACQUELYN LOPEZ ([id number]) [facility] ([facility]) [address] [place] [address]78[address] Eosinophils (Bld) [#/Vol] 0.09 x10*3/uL Normal 0.00-0.70 [facility] Comment on above: Performed By: #### 5 8077-9 #### JACQUELYN LOPEZ ([id number]) [facility] ([facility]) [address] [place] [address] Eosinophils/100 WBC (Bld) 1.1 % Normal 0.0-6.0 [facility] Comment on above: Performed By: #### 5 8077-9 #### JACQUELYN LOPEZ ([id number]) [facility] ([facility]) [address] [place] [address]453 Erythrocyte distribution width (RBC) [Ratio] 12.6 % Normal 11.5-14.5 [facility] Comment on above: Performed By: #### 5 8077-9 #### JACQUELYN LPOEZ ([id number]) [facility] ([facility]) [address] [place] [address]842 Hematocrit (Bld) [Volume fraction] 37.1 % Normal 36.0-46.0 [facility] Comment on above: Performed By: #### 5 8077-9 #### JACQUELYN LOPEZ ([id number]) [facility] ([facility]) [address] [place] [address]15[address] Hemoglobin (Bld) [Mass/Vol] 12.6 g/dL Normal 12.0-16.0 [facility] Comment on above: Performed By: #### 5 8077-9 #### JACQUELYN LOPEZ ([id number]) [facility] ([facility]) [address] [place] [address] Immature granulocytes (Bld) [#/Vol] 0.03 x10*3/uL Normal 0.00-0.70 [facility] Comment on above: Performed By: #### 5 8077-9 #### JACQUELYN LOPEZ ([id number]) [facility] ([facility]) [address] [place] [address]89[address] Immature granulocytes/100 WBC (Bld) 0.4 % Normal 0.0-0.9 [facility] Comment on above: Result Comment: Kaela ture Granulocyte Count (IG) includes promyelocytes, myelocytes and metamyelocytes but does not include bands. Percent differential counts (%) should be interpreted in the context of the absolute cell counts (cells/UL). Performed By: #### 5 8077-9 #### JACQUELYN LOPEZ ([id number]) [facility] ([facility]) [address] [place] [address]22[address] Lymphocytes (Bld) [#/Vol] 1.80 x10*3/uL Normal 1.20-4.80 [facility] Comment on above: Performed By: #### 5 8077-9 #### JACQUELYN LOPEZ ([id number]) [facility] ([facility]) [address] [place] [address] 30829 Lymphocytes/100 WBC (Bld) 21.4 % Normal 13.0-44.0 [facility] Comment on above: Performed By: #### 5 8077-9 #### JACQUELYN LOPEZ ([id number]) [facility] ([facility]) [address] [place] [address]31 MCH (RBC) [Entitic mass] 28.2 pg Normal 26.0-34.0 [facility] Comment on above: Performed By: #### 5 8077-9 #### JACQUELYN LOPEZ ([id number]) [facility] ([facility]) [address] [place] [address] 72268 MCHC (RBC) [Mass/Vol] 34.0 g/dL Normal 32.0-36.0 [facility] Comment on above: Performed By: #### 5 8077-9 #### JACQUELYN LOPEZ ([id number]) [facility] ([facility]) [address] [place] [address] 15807 MCV (RBC) [Entitic vol] 83 fL Normal 80-100 [facility] Comment on above: Performed By: #### 5 8077-9 #### JACQUELYN LOPEZ ([id number]) [facility] ([facility]) [address] [place] [address] 54511 Monocytes (Bld) [#/Vol] 0.48 x10*3/uL Normal 0.10-1.00 [facility] Comment on above: Performed By: #### 5 8077-9 #### JACQUELYN LOPEZ ([id number]) [facility] ([facility]) [address] [place] [address] 58611 Monocytes/100 WBC (Bld) 5.7 % Normal 2.0-10.0 [facility] Comment on above: Performed By: #### 5 8077-9 #### JACQUELYN LOPEZ ([id number]) [facility] ([facility]) [address] [place] [address] 15636 Neutrophils (Bld) [#/Vol] 5.95 x10*3/uL Normal 1.20-7.70 [facility] Comment on above: Result Comment: Perc ent differential counts (%) should be interpreted in the context of the absolute cell counts (cells/uL). Performed By: #### 5 8077-9 #### JACQUELYN LOPEZ ([id number]) [facility] ([facility]) [address] [place] [address] 95442 Neutrophils/100 WBC (Bld) 70.8 % Normal 40.0-80.0 [facility] Comment on above: Performed By: #### 5 8077-9 #### JACQUELYN LOPEZ ([id number]) [facility] ([facility]) [address] [place] [address] 98065 Nucleated RBC/100 WBC (Bld) [Ratio] 0.0 /100 WBCs Normal 0.0-0.0 [facility] Comment on above: Performed By: #### 5 8077-9 #### JACQUELYN LOPEZ ([id number]) [facility] ([facility]) [address] [place] [address] 43601 Platelets (Bld) [#/Vol] 326 x10*3/uL Normal 150-450 [facility] Comment on above: Performed By: #### 5 8077-9 #### JACQUELYN LOPEZ ([id number]) [facility] ([facility]) [address] [place] [address] 12503 RBC (Bld) [#/Vol] 4.47 x10*6/uL Normal 4.00-5.20 [facility] Comment on above: Performed By: #### 5 8077-9 #### JACQUELYN LOPEZ ([id number]) [facility] ([facility]) [address] [place] [address] WBC (Bld) [#/Vol] 8.4 x10*3/uL Normal 4.4-11.3 [facility] Comment on above: Performed By: #### 5 8077-9 #### JACQUELYN LOPEZ ([id number]) [facility] ([facility]) [address] [place] [address] Choriogonadotropin.beta subu niton 01-24-2025 HCG.beta subunit Qn m[IU]/mL Normal <5 [facility] Comment on above: Order Comment: Total HCG measurement is performed using the [employer] Access Immunoassay which detects intact HCG and free beta HCG subunit. This test is not indicated for use as a tumor marker. HCG testing is performed using a different test methodology at [facility] than other [facility]. Direct result comparison should only be made within the same method. Performed By: #### 5 3315-8 #### JACQUELYN LOPEZ ([id number]) [facility] ([facility]) [address] [place], [place] [id number] Comprehensive metabolic 2000 panelon 01-24-2025 Albumin BCP dye [Mass/Vol] 4.2 g/dL 3.4 - 5.0 g/dL [facility] ALP [Catalytic activity/Vol] 81 U/L 33 - 110 U/L [facility] ALT With P-5'-P [Catalytic activity/Vol] 39 U/L 7 - 45 U/L [facility] Comment on above: Patients treated wit h Sulfasalazine may generate falsely decreased results for ALT. Anion gap [Moles/Vol] 13 mmol/L 10 - 2 0 mmol/L [facility] AST With P-5'-P [Catalytic activity/Vol] 19 U/L 9 - 39 U/L [facility] Bilirubin [Mass/Vol] 0.7 mg/dL 0.0 - 1 .2 mg/dL [facility] Calcium [Mass/Vol] 8.8 mg/dL 8.6 - 10. 3 mg/dL [facility] Chloride [Moles/Vol] 105 mmol/L 98 - 10 7 mmol/L [facility] CO2 [Moles/Vol] 23 mmol/L 21 - 32 mmol/L [facility] Creatinine [Mass/Vol] 0.46 mg/dL Low 0.50 - 1.05 mg/dL [facility] eGFR - PINF [facility] Comment on above: Calculations of ascencion mated GFR are performed using the 2020 CKD-EPI Study Refit equation without the race variable for the IDMS-Traceable creatinine methods. https://jasn.asnjournals.org/content//ASN.419744 5245 Glucose [Mass/Vol] 199 mg/dL High 74 - 99 mg/dL [facility] Potassium [Moles/Vol] 3.5 mmol/L 3.5 - 5.3 mmol/L [facility] Protein [Mass/Vol] 7.3 g/dL 6.4 - 8.2 g/dL [facility] Sodium [Moles/Vol] 137 mmol/L 136 - 145 mmol/L [facility] Urea nitrogen [Mass/Vol] 6 mg/dL 6 - 23 mg/dL [facility] Albumin BCP dye [Mass/Vol] 4.2 g/dL Normal 3.4-5.0 [facility] Comment on above: Performed By: #### 5 8077-9 #### JACQUELYN LOPEZ ([id number]) [facility] ([facility]) [address] [place] [address] ALP [Catalytic activity/Vol] 81 U/L Normal 33-110 [facility] Comment on above: Performed By: #### 5 8077-9 #### JACQUELYN LOPEZ ([id number]) [facility] ([facility]) [address] [place] [address] ALT With P-5'-P [Catalytic activity/Vol] 39 U/L Normal 7-45 [facility] Comment on above: Result Comment: Shantal ents treated with Sulfasalazine may generate falsely decreased results for ALT. Performed By: #### 5 3778-9 #### JACQUELYN LOPEZ ([id number]) [facility] ([facility]) [address] [place] [address] Anion gap [Moles/Vol] 13 mmol/L Normal 10-20 [facility] Comment on above: Performed By: #### 5 8077-9 #### JACQUELYN LOPEZ ([id number]) [facility] ([facility]) [address] [place] [address] 73080 AST With P-5'-P [Catalytic activity/Vol] 19 U/L Normal 9-39 [facility] Comment on above: Performed By: #### 5 8077-9 #### JACQUELYN LOPEZ ([id number]) [facility] ([facility]) [address] [place] [address] 73633 Bilirubin [Mass/Vol] 0.7 mg/dL Normal 0.0-1.2 [facility] Comment on above: Performed By: #### 5 8077-9 #### JACQUELYN LOPEZ ([id number]) [facility] ([facility]) [address] [place] [address] 96569 Calcium [Mass/Vol] 8.8 mg/dL Normal 8.6-10.3 [facility] Comment on above: Performed By: #### 5 8077-9 #### JACQUELYN LOPEZ ([id number]) [facility] ([facility]) [facility] [place] [address] Chloride [Moles/Vol] 105 mmol/L Normal 98-107 [facility] Comment on above: Performed By: #### 5 8077-9 #### JACQUELYN LOPEZ ([id number]) [facility] ([facility]) [address] [place] [address] 30528 CO2 [Moles/Vol] 23 mmol/L Normal 21-32 [facility] Comment on above: Performed By: #### 5 8077-9 #### JACQUELYN LOPEZ ([id number]) [facility] ([facility]) [address] [place] [address] 70784 Creatinine [Mass/Vol] 0.46 mg/dL Low 0.50-1.05 [facility] Comment on above: Performed By: #### 5 8077-9 #### JACQUELYN LOPEZ ([id number]) [facility] ([facility]) [address] [place] [address] 67658 Glomerular filtration rate >90 Normal >60 [facility] Comment on above: Result Comment: Calc ulations of estimated GFR are performed using the 2020 CKD-EPI Study Refit equation without the race variable for the IDMS-Traceable creatinine methods. https://jasn.asnjournals.org/content/early//ASN.493059 3484 Performed By: #### 5 8077-9 #### JACQUELYN LOPEZ ([id number]) [facility] ([facility]) [address] [place] [address] 06987 Glucose [Mass/Vol] 199 mg/dL High 74-99 [facility] Comment on above: Performed By: #### 5 8077-9 #### JACQUELYN LOPEZ ([id number]) [facility] ([facility]) [address] [place] [address] 60844 Potassium [Moles/Vol] 3.5 mmol/L Normal 3.5-5.3 [facility] Comment on above: Performed By: #### 5 8077-9 #### JACQUELYN LOPEZ ([id number]) [facility] ([facility]) [address] [place] [address] 19255 Protein [Mass/Vol] 7.3 g/dL Normal 6.4-8.2 [facility] Comment on above: Performed By: #### 5 8077-9 #### JACQUELYN LOPEZ ([id number]) [facility] ([facility]) [address] [place] [address] 78213 Sodium [Moles/Vol] 137 mmol/L Normal 136-145 [facility] Comment on above: Performed By: #### 5 8077-9 #### JACQUELYN LOPEZ ([id number]) [facility] ([facility]) [address] [place] [address] 11632 Urea nitrogen [Mass/Vol] 6 mg/dL Normal 6-23 [facility] Comment on above: Performed By: #### 5 8077-9 #### JACQUELYN LOPEZ ([id number]) [facility] ([facility]) [address] [place] [address] 35422 D-Dimer, VTE Exclusionon Fibrin D-dimer FEU (PPP) [Mass/Vol] 456 NINF [facility] ECG 12-LEADon 01-24-2025 ECG 12-LEAD Ventricular Rate 102 Atrial Rate 102 P-R Interval 142 QRS Duration 84 Q-T Interval 378 QTC Calculation(Bazett) 492 P [place] 54 R [place] 60 T [place] -17 QRS Count 17 Q Onset 219 P Onset 148 P Offset 196 T Offset 408 QTC Fredericia 451 Diagnosis Sinus tachycardia Nonspecific ST and T wave abnormality Abnormal ECG No previous ECGs available See ED provider note for full interpretation and clinical correlation Confirmed by Angy Lynne ([id number]) on 01/28/2025 3:15:20 PM Normal [facility] Fibrin D-dimeron 01-24-2025 Fibrin D-dimer FEU (PPP) [Mass/Vol] 456 ng/mL FEU Normal <=500 [facility] Comment on above: Order Comment: OVER is reported when the result is greater than the clinically reportable range. Performed By: #### 5 8077-9 #### JACQUELYN LOPEZ ([id number]) [facility] ([facility]) [address] [place] [address] 19511 Fibrin D-dimer FEU (PPP) [Ma ss/Vol]on 01-24-2025 Interpretation and review of laboratory results Normal [facility] The VTE Exclusion D-Dimer assay is reported in ng/mL Fibrinogen Equivalent Units (FEU). Per cushion maker hand's instructions for use, a value of less than 500 ng/mL (FEU) may help to exclude DVT or PE in outpatients when the assay is used with a clinical pretest probability assessment.([facility] must utilize and document eCalc 'Wells Score Deep Vein Thrombosis Risk' for DVT exclusion only. Emergency Department should utilize Guidelines for Emergency Department Use of the VTE Exclusion D-Dimer and Clinical Pretest probability assessment model for DVT or PE exclusion.) [facility] HCG.beta subunit Qnon 2024 Total HCG measuremen t is performed using the [employer] Access Immunoassay which detects intact HCG and free beta HCG subunit. This test is not indicated for use as a tumor marker. HCG testing is performed using a different test methodology at [facility] than other [facility]. Direct result comparison should only be made within the same method. [facility] Magnesiumon 01-24-2025 Magnesium [Mass/Vol] 1.93 mg/dL 1.60 - 2.40 mg/dL [facility] Magnesium [Mass/Vol] 1.93 mg/dL Normal 1.60-2.40 [facility] Comment on above: Performed By: #### 5 8077-9 #### VALLADARES JOHN ([id number]) [facility] ([facility]) [address] [place] [address] Magnesium [Mass/Vol]on 01-24 Interpretation and review of laboratory results Normal [facility] No Panel Informationon 01-24 Interpretation and review of laboratory results Normal [facility] Interpretation and review of laboratory results Abnormal [facility] Tropinin I.cardiac panel Hig h sensitivity methodon 01-24-2025 Interpretation and review of laboratory results Normal [facility] Less than 99th percentile of normal range cutoff- Female and children under 18 years old <14 ng/L; Male <21 ng/L: Negative Repeat testing should be performed if clinically indicated. Female and children under 18 years old 14-50 ng/L; Male 21-50 ng/L: Consistent with possible cardiac damage and possible increased clinical risk. Serial measurements may help to assess extent of myocardial damage. >50 ng/L: Consistent with cardiac damage, increased clinical risk and myocardial infarction. Serial measurements may help assess extent of myocardial damage. NOTE: Children less than 1 year old may have higher baseline troponin levels and results should be interpreted in conjunction with the overall clinical context. NOTE: Troponin I testing is performed using a different testing methodology at [facility] than at other [facility]. Direct result comparisons should only be made within the same method. [facility] Less than 99th percentile of normal range cutoff- Female and children under 18 years old <14 ng/L; Male <21 ng/L: Negative Repeat testing should be performed if clinically indicated. Female and children under 18 years old 14-50 ng/L; Male 21-50 ng/L: Consistent with possible cardiac damage and possible increased clinical risk. Serial measurements may help to assess extent of myocardial damage. >50 ng/L: Consistent with cardiac damage, increased clinical risk and myocardial infarction. Serial measurements may help assess extent of myocardial damage. NOTE: Children less than 1 year old may have higher baseline troponin levels and results should be interpreted in conjunction with the overall clinical context. NOTE: Troponin I testing is performed using a different testing methodology at [facility] than at [facility]. Direct result comparisons should only be made within the same method. [facility] Troponin I, High Sensitivity , Initialon 01-24-2025 Tropinin I.cardiac panel High sensitivity method ng/L 0 - 13 ng/L [facility] Troponin I.cardiac panelon 0 01-24-2025 Tropinin I.cardiac panel High sensitivity method <3 Normal 0-13 [facility] Comment on above: Order Comment: Less than 99th percentile of normal range cutoff-Female and children under 18 years old <14 ng/L; Male <21 ng/L: NegativeRepeat testing should be performed if clinically indicated.Female and children under 18 years old 14-50 ng/L; Male 21-50 ng/L:Consistent with possible cardiac damage and possible increased clinicalrisk. Serial measurements may help to assess extent of myocardial damage.>50 ng/L: Consistent with cardiac damage, increased clinical risk andmyocardial infarction. Serial measurements may help assess extent ofmyocardial damage.NOTE: Children less than 1 year old may have higher baseline troponinlevels and results should be interpreted in conjunction with the overallclinical context.NOTE: Troponin I testing is performed using a differenttesting methodology at [facility] than at [facility]. Direct result comparisons should onlybe made within the same method. Performed By: #### 5 3315-8 #### VALLADARES JOHN ([id number]) [facility] ([facility]) [address] [place] [address] Tropinin I.cardiac panel High sensitivity method <3 Normal 0-13 [facility] Comment on above: Order Comment: Less than 99th percentile of normal range cutoff-Female and children under 18 years old <14 ng/L; Male <21 ng/L: NegativeRepeat testing should be performed if clinically indicated.Female and children under 18 years old 14-50 ng/L; Male 21-50 ng/L:Consistent with possible cardiac damage and possible increased clinicalrisk. Serial measurements may help to assess extent of myocardial damage.>50 ng/L: Consistent with cardiac damage, increased clinical risk andmyocardial infarction. Serial measurements may help assess extent ofmyocardial damage.NOTE: Children less than 1 year old may have higher baseline troponinlevels and results should be interpreted in conjunction with the overallclinical context.NOTE: Troponin I testing is performed using a differenttesting methodology at [facility] than at [facility]. Direct result comparisons should onlybe made within the same method. Performed By: #### 5 3315-8 #### VALLADARES JOHN ([id number]) [facility] ([facility]) [address] [place] [address] Troponin, High Sensitivity, 1 Houron 01-24-2025 Tropinin I.cardiac panel High sensitivity method ng/L 0 - 13 ng/L [facility] Urinalysis complete W Reflex Culture panel (U)on 01-24-2025 Appearance (U) Clear Clear [facility] Bacteria Auto (Urine sed) [#/Area] 1+ Abnormal NONE SEEN /HPF [facility] Bilirubin (U) [Mass/Vol] Negative NEGATIVE mg/dL [facility] Color (U) Colorless Abnormal Light-Yellow , Yellow, Dark-Yellow [facility] Epithelial cells.squamous Auto (Urine sed) [#/Area] 1-9 (SPARSE) Reference range not established. /HPF [facility] Glucose Auto test strip (U) [Mass/Vol] Normal Normal mg/dL [facility] Ketones (U) [Mass/Vol] 10 (1+) Abnormal NEGATIVE mg/dL [facility] Leukocyte esterase Auto test strip Ql (U) Negative NEGATIVE [facility] Nitrite Auto test strip Ql (U) Negative NEGATIVE [facility] pH (U) 6.5 [pH] 5.0, 5.5, 6.0, 6.5, 7.0, 7.5, 8.0 [facility] Protein (U) [Mass/Vol] Negative NEGATIVE, 10 (TRACE), 20 (TRACE) mg/dL [facility] RBC (U) [#/Vol] OVER (3+) Abnormal NEGATIVE mg/dL [facility] RBC Auto (Urine sed) [#/Area] >20 Abnormal NONE, 1-2, 3-5 /HPF [facility] Specific gravity (U) [Rel density] 1.004 Abnormal 1.005 - 1.035 [facility] Urobilinogen (U) [Mass/Vol] Normal Normal mg/dL [facility] WBC Auto (Urine sed) [#/Area] 1-5 1-5, NONE /HPF [facility] OVER is reported whe n the result is greater than the clinically reportable range. [facility] Appearance (U) Clear Normal Clear [facility] Comment on above: Order Comment: OVER is reported when the result is greater than the clinically reportable range. Performed By: #### 5 8077-9 #### JACQUELYN LOPEZ ([id number]) [facility] ([facility]) [address] [place] [address] Bacteria Auto (Urine sed) [#/Area] 1+ /HPF Abnormal NONE SEEN [facility] Comment on above: Performed By: #### 5 8077-9 #### JACQUELYN LOPEZ ([id number]) [facility] ([facility]) [address] [place] [address] 11925 Bilirubin (U) [Mass/Vol] Negative Normal NEGATIVE [facility] Comment on above: Order Comment: OVER is reported when the result is greater than the clinically reportable range. Performed By: #### 5 8077-9 #### JACQUELYN LOPEZ ([id number]) [facility] ([facility]) [address] [place] [address] 14007 Color (U) Colorless Normal Light-Yellow , Yellow, Dark-Yellow [facility] Comment on above: Order Comment: OVER is reported when the result is greater than the clinically reportable range. Performed By: #### 5 8077-9 #### JACQUELYN LOPEZ ([id number]) [facility] ([facility]) [address] [place] [address] Epithelial cells.squamous Auto (Urine sed) [#/Area] 1-9 (SPARSE) Normal Reference range not established. [facility] Comment on above: Performed By: #### 5 8077-9 #### JACQUELYN LOPEZ ([id number]) [facility] ([facility]) [address] [place] [address] Glucose Auto test strip (U) [Mass/Vol] Normal Normal Normal [facility] Comment on above: Order Comment: OVER is reported when the result is greater than the clinically reportable range. Performed By: #### 5 8077-9 #### JACQUELYN LOPEZ ([id number]) [facility] ([facility]) [address] [place] [address] Ketones (U) [Mass/Vol] 10 (1+) Abnormal NEGATIVE [facility] Comment on above: Order Comment: OVER is reported when the result is greater than the clinically reportable range. Performed By: #### 5 8077-9 #### JACQUELYN LOPEZ ([id number]) [facility] ([facility]) [address] [place] [address] Leukocyte esterase Auto test strip Ql (U) Negative Normal NEGATIVE [facility] Comment on above: Order Comment: OVER is reported when the result is greater than the clinically reportable range. Performed By: #### 5 8077-9 #### JACQUELYN LOPEZ ([id number]) [facility] ([facility]) [address] [place] [address] Nitrite Auto test strip Ql (U) Negative Normal NEGATIVE [facility] Comment on above: Order Comment: OVER is reported when the result is greater than the clinically reportable range. Performed By: #### 5 8077-9 #### JACQUELYN LOPEZ ([id number]) [facility] ([facility]) [address] [place] [address] pH (U) 6.5 [pH] Normal 5.0, 5.5, 6.0, 6.5, 7.0, 7.5, 8.0 [facility] Comment on above: Order Comment: OVER is reported when the result is greater than the clinically reportable range. Performed By: #### 5 8077-9 #### JACQUELYN LOPEZ ([id number]) [facility] ([facility]) [address] [place] [address] 83879 Protein (U) [Mass/Vol] Negative Normal NEGATIVE, 10 (TRACE), 20 (TRACE) [facility] Comment on above: Order Comment: OVER is reported when the result is greater than the clinically reportable range. Performed By: #### 5 8077-9 #### JACQUELYN LOPEZ ([id number]) [facility] ([facility]) [address] [place] [address] 31516 RBC (U) [#/Vol] OVER (3+) Abnormal NEGATIVE [facility] Comment on above: Order Comment: OVER is reported when the result is greater than the clinically reportable range. Performed By: #### 5 8077-9 #### JACQUELYN LOPEZ ([id number]) [facility] ([facility]) [address] [place] [address] 48119 RBC Auto (Urine sed) [#/Area] >20 Abnormal NONE, 1-2, 3-5 [facility] Comment on above: Performed By: #### 5 8077-9 #### JACQUELYN LOPEZ ([id number]) [facility] ([facility]) [address] [place] [address] 91977 Specific gravity (U) [Rel density] 1.004 Normal 1.005-1.035 [facility] Comment on above: Order Comment: OVER is reported when the result is greater than the clinically reportable range. Performed By: #### 5 8077-9 #### JACQUELYN LOPEZ ([id number]) [facility] ([facility]) [address] [place] [address] 70907 Urobilinogen (U) [Mass/Vol] Normal Normal Normal [facility] Comment on above: Order Comment: OVER is reported when the result is greater than the clinically reportable range. Performed By: #### 5 8077-9 #### JACQUELYN LOPEZ ([id number]) [facility] ([facility]) [address] [place] [address] 86493 WBC Auto (Urine sed) [#/Area] 1-5 Normal 1-5, NONE [facility] Comment on above: Performed By: #### 5 8077-9 #### VALLADARES JOHN ([id number]) [facility] ([facility]) [address] [place] [address] XR CHEST 1 VIEWon 01-24-2025 XR CHEST 1 VIEW Interpreted By: Milly Juarez, STUDY: XR CHEST 1 VIEW; 01/24/2025 2:30 pm INDICATION: CLINICAL INFORMATION: Signs/Symptoms:Chest Pain. COMPARISON: 07/01/2024 ACCESSION NUMBER(S): [id number] ORDERING CLINICIAN: TY SHANNON TECHNIQUE: Portable chest one view. FINDINGS: The cardiac size is indeterminate in view of the AP projection. No infiltrates or effusions are identified. IMPRESSION: No acute pathologic findings are identified. There is no interval change when compared to the previous examination. MACRO: none Signed by: Milly Juarez 01/24/2025 2:56 PM Dictation workstation: [id number] Normal [facility] XR Chest Single viewon 01-24 No acute pathologic findings are identified. There is no interval change when compared to the previous examination. MACRO: none Signed by: Milly Juarez 01/24/2025 2:56 PM Dictation workstation: [id number] [facility] Interpreted By: Milly Juarez, STUDY: XR CHEST 1 VIEW; 01/24/2025 2:30 pm INDICATION: CLINICAL INFORMATION: Signs/Symptoms:Chest Pain. COMPARISON: 07/01/2024 ACCESSION NUMBER(S): [id number] ORDERING CLINICIAN: TY SHANNON TECHNIQUE: Portable chest one view. FINDINGS: The cardiac size is indeterminate in view of the AP projection. No infiltrates or effusions are identified. [facility] Milly Juarez MD - 01/24/2025 Interpreted By: Milly Juarez, STUDY: XR CHEST 1 VIEW; 01/24/2025 2:30 pm INDICATION: CLINICAL INFORMATION: Signs/Symptoms:Chest Pain. COMPARISON: 07/01/2024 ACCESSION NUMBER(S): [id number] ORDERING CLINICIAN: TY SHANNON TECHNIQUE: Portable chest one view. FINDINGS: The cardiac size is indeterminate in view of the AP projection. No infiltrates or effusions are identified. IMPRESSION: No acute pathologic findings are identified. There is no interval change when compared to the previous examination. MACRO: none Signed by: Milly Juarez 01/24/2025 2:56 PM Dictation workstation: [id number] [facility] Work Phone: Radiology Study observation (narrative) [facility] Work Phone: XR Chest Single viewOrdered By: Milly Juarez on 01-24-2025 [facility] Work Phone: hCG, quantitative, on 01-24-2025 HCG.beta subunit Qn [facility] Absolute lymphocyte countOrd ered By: Ian Rocha on 01-23-2025 Lymphocytes Auto (Unsp spec) [#/Vol] 2.24 10*3/uL 0.83-4.51 [facility] Absolute neutrophil countOrd ered By: Ian Rocha on 01-23-2025 Neutrophils (Bld) [#/Vol] 4.6 10*3/uL 2.0-7.7 [facility] Anion gap in Serum or Plasma Ordered By: Ian Rocha on 01-23-2025 Anion gap [Moles/Vol] 14 mmol/L 5-15 [facility] Automated lymphocyte count a s percentage of total leukocytesOrdered By: Ian Rocha on 01-23-2025 Lymphocytes/100 WBC Auto (Unsp spec) 29.4 % 19-41 [facility] BUN/creatinine ratioOrdered By: Ian Rocha on 01-23-2025 Urea nitrogen/Creatinine [Mass ratio] 18.5 mg/mg 10- [facility] Basic Metabolic Profile (BMP )on 01-23-2025 BUN/CRE 18.5 RATIO Normal - [facility] Comment on above: Performed By: #### L 100.0100, L500.2500 #### [facility] [address] [place], [address] Calcium [Mass/Vol] 9.2 mg/dL Normal 7.6-11.0 [facility] Comment on above: Performed By: #### L 100.0100, L500.2500 #### [facility] [address] [place], [address] Chloride [Moles/Vol] 102 mmol/L Normal 98-108 [facility] Comment on above: Performed By: #### L 100.0100, L500.2500 #### [facility] [address] [place], [address] CO2 [Moles/Vol] 21.5 mmol/L Normal 21.0-32.0 [facility] Comment on above: Performed By: #### L 100.0100, L500.2500 #### [facility] [address] [place], [address] Creatinine [Mass/Vol] 0.55 mg/dL Low 0.70-1.20 [facility] Comment on above: Performed By: #### L 100.0100, L500.2500 #### [facility] [address] [place], [address] ECRCL 158.08 ml/min Normal 50-250 [facility] Comment on above: Performed By: #### L 100.0100, L500.2500 #### [facility] [address] [place], [address] GAP 14 Normal 5-15 [facility] Comment on above: Performed By: #### L 100.0100, L500.2500 #### [facility] [address] [place], [address] GFR/1.73 sq M.predicted among non-blacks MDRD (S/P/Bld) [Vol rate/Area] 127 mL/min/{1.73_m2} Normal >60 [facility] Comment on above: Result Comment: mL/m in/1.73m2 CKD-EPI Creatinine Equation (2020) Performed By: #### L 100.0100, L500.2500 #### [facility] [address] [place], [address] Glucose [Mass/Vol] 229 mg/dL High 70-99 [facility] Comment on above: Performed By: #### L 100.0100, L500.2500 #### [facility] [address] [place], [address] Potassium [Moles/Vol] 3.4 mmol/L Normal 3.3-5.1 [facility] Comment on above: Performed By: #### L 100.0100, L500.2500 #### [facility] [address] [place], [address] Sodium [Moles/Vol] 138 mmol/L Normal 133-145 [facility] Comment on above: Performed By: #### L 100.0100, L500.2500 #### [facility] [address] [place], [address] Urea nitrogen [Mass/Vol] 10 mg/dL Normal 4-19 [facility] Comment on above: Performed By: #### L 100.0100, L500.2500 #### [facility] [address] [place], [address] Basophil percentageOrdered B y: Ian Rocha on 01-23-2025 Basophils/100 WBC (Bld) 0.8 % 0-1 [facility] CBC W/Diff, Automatedon 01-07 Absolute Lymph 2.24 X10 3/uL Normal 0.83-4.51 [facility] Comment on above: Performed By: #### L 100.0100, L500.2500 #### [facility] [address] [place], [address] Absolute Neut 4.6 X10 3/uL Normal 2.0-7.7 [facility] Comment on above: Performed By: #### L 100.0100, L500.2500 #### [facility] [address] [place], [address] Basophils/100 WBC (Bld) 0.8 % Normal 0-1 [facility] Comment on above: Performed By: #### L 100.0100, L500.2500 #### [facility] [address] [place], [address] Eosinophils/100 WBC (Bld) 2.6 % Normal 0-5 [facility] Comment on above: Performed By: #### L 100.0100, L500.2500 #### [facility] [address] [place], [address] Erythrocyte distribution width (RBC) [Ratio] 12.5 % Normal 11.6-14.6 [facility] Comment on above: Performed By: #### L 100.0100, L500.2500 #### [facility] [address] [place], [address] Hematocrit (Bld) [Volume fraction] 37.7 % Normal 37-47 [facility] Comment on above: Performed By: #### L 100.0100, L500.2500 #### [facility] [address] [place], [address] Hemoglobin (Bld) [Mass/Vol] 13.0 g/dL Normal 12.0-15.0 [facility] Comment on above: Performed By: #### L 100.0100, L500.2500 #### [facility] [address] [place], [address] IG% 0.100 Normal 0.0-0.9 [facility] Comment on above: Result Comment: IG% - Immature Granulocytes (promyelocytes, myelocytes and metamyelocytes) > 1% indicates that a LEFT SHIFT is Present. Performed By: #### L 100.0100, L500.2500 #### [facility] [address] [place], [address] Lymphocytes/100 WBC (Bld) 29.4 % Normal 19-41 [facility] Comment on above: Performed By: #### L 100.0100, L500.2500 #### [facility] [address] [place], [address] MCH (RBC) [Entitic mass] 28.4 pg Normal 27.0-32.0 [facility] Comment on above: Performed By: #### L 100.0100, L500.2500 #### [facility] [address] [place], [address] MCHC (RBC) [Mass/Vol] 34.5 g/dL Normal 32-36 [facility] Comment on above: Performed By: #### L 100.0100, L500.2500 #### [facility] [address] [place], [address] MCV (RBC) [Entitic vol] 82.5 fL Normal 81-99 [facility] Comment on above: Performed By: #### L 100.0100, L500.2500 #### [facility] [address] [place], [address] Monocytes/100 WBC (Bld) 6.6 % Normal 0-10 [facility] Comment on above: Performed By: #### L 100.0100, L500.2500 #### [facility] [address] [place], [address] Neutrophils/100 WBC (Bld) 60.5 % Normal 47-70 [facility] Comment on above: Performed By: #### L 100.0100, L500.2500 #### [facility] [address] [place], [address] Nucleated RBC (Bld) [#/Vol] 0 10*3/uL Normal 0-5 [facility] Comment on above: Performed By: #### L 100.0100, L500.2500 #### [facility] [address] [place], [address] Platelet mean volume (Bld) [Entitic vol] 9.7 fL Normal 6.2-12.0 [facility] Comment on above: Performed By: #### L 100.0100, L500.2500 #### [facility] [address] [place], [address] Platelets (Bld) [#/Vol] 317 10*3/uL Normal 150-450 [facility] Comment on above: Performed By: #### L 100.0100, L500.2500 #### [facility] [address] [place], [address] RBC (Bld) [#/Vol] 4.57 10*6/uL Normal 4.2-5.4 [facility] Comment on above: Performed By: #### L 100.0100, L500.2500 #### [facility] [address] [place], [address] RDW SD 37.4 fl Normal 35.1-43.9 [facility] Comment on above: Performed By: #### L 100.0100, L500.2500 #### [facility] [address] [place], [address] WBC (Bld) [#/Vol] 7.6 10*3/uL Normal 4.4-11.0 [facility] Comment on above: Performed By: #### L 100.0100, L500.2500 #### [facility] [address] [place], [address] Carbon dioxide, total [Moles /volume] in Central venous bloodOrdered By: Ian Rocha on 01-23-2025 CO2 [Moles/Vol] 21.5 mmol/L 21.0-32.0 [facility] Chloride assayOrdered By: Rosas Rocha on 01-23-2025 Chloride [Moles/Vol] 102 mmol/L 98-108 [facility] Emergency Department Summary on 01-23-2025 Emergency Department Summary [facility] Medical Records Department [address] [place] [address] Emergency Department Summary 01/23/25 MR#: [id number] Acct: [id number] Name: MELISSA BYRNE Rep #: [id number] : 1995 29 From: Ian Rocha MD PCP: Dr. Jamari Byrne MD Status:DEP ER Location: ED HPI HPI - GI History of Present Illness Chief Complaint: Nausea/Vomiting Nausea/Vomiting/Emesis GI Symptom: Positive for Nausea and Vomiting (X 2 tonight.) Onset: Today Severity: Mild Diarrhea/Melena/Hematoc hezia GI Symptom: Positive for Diarrhea Stool Quality: Positive for Loose Severity: Mild Associated Symptoms Associated Symptoms: Negative for Dysuria, Frequency, Hematuria or Urgency Narrative Narrative: 29-year-old female history of bipolar diabetes. States that she had nausea vomiting twice tonight. No fever. No abdominal pain. Said her blood sugars have been running around 160. She had a similar episode last week. She has had a prior cholecystectomy. She gave to her child in December. Loose stools. Denies any dysuria. No fever. Currently she said she is not nausea and does not need medications. She is not having any pain. Prior similar symptoms: Yes Recent Illness/Hospitalization : No PFSH PFSH Medical History Wears dentures Wears glasses Bipolar disorder Depression Anxiety Arthritis Gastric reflux Smoker Insulin dependent diabetes mellitus PONV (postoperative nausea and vomiting) Asthma Osteoarthritis Diabetes Home Medications ???Medication ???Instructions ???Recorded ???Last Taken ???Type buspirone 15 mg tablet 15 mg PO QDAY anxiety 02/26/2404/02 History albuterol sulfate 90 mcg/actuation 1 - 2 puff inhalation PRN PRN 11/01/24 15:57 History aerosol inhaler shortness of breath or wheezing fluoxetine 20 mg capsule 20 mg PO DAILY anxiety 11/15/24 History insulin lispro 100 unit/mL 8 unit subcut TID 12/16/24 Unknown History subcutaneous pen (Humalog KwikPen (U-100) Insulin) insulin NPH isoph U-100 human 100 20 unit subcut QHS 01/21/25 Unkno wn History unit/mL (3 mL) subcutaneous pen (Humulin N NPH U-100 Insulin KwikPen) ondansetron 4 mg disintegrating 4 mg PO Q6H PRN nausea and 5 Unknown Rx tablet vomiting #7 tabs Allergy/AdvReac Type Severity Reaction Status Date / Time aripiprazole (From Abilify) AdvReac Other Verified 01/23/25 21:07 metoclopramide (From Reglan) AdvReac Other Verified 01/23/25 21:07 ondansetron (From Zofran) AdvReac Vomiting Verified 01/23/25 21:07 quetiapine (From Seroquel) AdvReac Other Verified 01/23/25 21:07 sertraline (From Zoloft) AdvReac Other Verified 01/23/25 21:07 Family History Other Heart disease Hyperlipemia Surgical History History of dilation and curettage History of oral surgery History of cholecystectomy Social History Smoking Status: Current every day smoker tobacco type: cigarettes alcohol intake: never substance use type: does not use ROS ROS ED ROS Narrative Nausea and vomiting. Loose stools. Constitutional Constitutional ED: Denies chills or fever(s) ENT ENT ED: Denies ear pain Cardiovascular Cardiovascular: Denies chest pain Respiratory/Chest Respiratory/Chest: Denies cough or dyspnea Gastrointestinal Gastrointestinal: Reports diarrhea, nausea and vomiting; Denies abdominal pain, constipation or melena Genitourinary Genitourinary ED: Denies dysuria or hematuria Musculoskeletal Musculoskeletal: Denies arthralgias Integumentary Denies abscess Neurologic Neurologic: Denies headache(s) Psychiatric Psychiatric: Denies anxiety Endocrine Endocrinology: Denies polydipsia Hematologic/Lymphatic Hematologic/Lymphatic: Denies easy bleeding Allergic/Immunologic Allergic/Immunologic ED: Denies mouth swelling, tongue swelling or urticaria EXAM Physical Exam Narrative Exam Narrative: Well-appearing 29-year-old female. Vital signs stable afebrile. No acute distress. No family present. H EENT exam pupils round react to light. Moist mucous membranes. Neck nontender no JVD. Lungs clear to auscultation bilaterally. Heart regular rhythm no murmur rate about 100. Chest wall and ribs nontender. Abdomen soft nontender. No peritoneal signs. Patient moving all 4 extremities. Normal strength. Normal range of motion. Nontender no edema. Back nontender. Neurologically she is awake alert. Answering questions and following commands. Benign exam. Const Vital Signs: 01/23/25 21:07 01/23/25 23:07 Temperature 97.8 F Temperature Source Oral Pulse Rate 99 69 Respirato (more content not included)... Normal [facility] Eosinophil percentageOrdered By: Ian Rocha on 01-23-2025 Eosinophils/100 WBC (Bld) 2.6 % 0-5 [facility] Erythrocyte distribution wid th ratioOrdered By: Ian Rocha on 01-23-2025 Erythrocyte distribution width (RBC) [Ratio] 12.5 % 11.6-14.6 [facility] Erythrocyte distribution wid th standard deviationOrdered By: Ian Rocha on 01-23-2025 Erythrocyte distribution width (RBC) [Ratio] 37.4 fl 35.1-43.9 [facility] Glomerular filtration rate ( GFR) estimation/1.73 sq m using serum, plasma, or whole bOrdered By: Ian Rocha on 01-23-2025 GFR/1.73 sq M.predicted among non-blacks MDRD (S/P/Bld) [Vol rate/Area] 127 mL/min/{1.73_m2} >60 [facility] Comment on above: mL/min/1.73m2 CKD-EP I Creatinine Equation (2020) Hematocrit Auto (Bld) [Volum e fraction]Ordered By: Ian Rocha on 01-23-2025 Hematocrit (Bld) [Volume fraction] 37.7 % 37-47 [facility] Hemoglobin measurementOrdere d By: Ian Rocah on 01-23-2025 Hemoglobin (Bld) [Mass/Vol] 13.0 g/dL 12.0-15.0 [facility] Immature granulocytes/100 WB C Auto (Bld)Ordered By: Ian Rocha on 01-23-2025 Immature granulocytes/100 WBC (Bld) 0.100 % 0.0-0.9 [facility] Comment on above: IG% - Immature Granu locytes (promyelocytes, myelocytes and metamyelocytes) > 1% indicates that a LEFT SHIFT is Present. MCV (mean corpuscular volume ) determinationOrdered By: Ian Rocha on 01-23-2025 MCV (RBC) [Entitic vol] 82.5 fL 81-99 [facility] Mean corpuscular hemoglobin (MCH) determinationOrdered By: Ian Rocha on 01-23-2025 MCH (RBC) [Entitic mass] 28.4 pg 27.0-32.0 [facility] Mean corpuscular hemoglobin concentration (MCHC) determinationOrdered By: Ian Rocha on 01-23-2025 MCHC (RBC) [Mass/Vol] 34.5 g/dL 32-36 [facility] Mean platelet volume determi nationOrdered By: Ian Rocha on 01-23-2025 Platelet mean volume (Bld) [Entitic vol] 9.7 fL 6.2-12.0 [facility] Monocyte percentageOrdered B y: Ian Rocha on 01-23-2025 Monocytes/100 WBC (Bld) 6.6 % 0-10 [facility] Neutrophil percentageOrdered By: Ian Rocha on 01-23-2025 Neutrophils/100 WBC (Bld) 60.5 % 47-70 [facility] Nucleated red blood cell per centageOrdered By: Ian Rocha on 01-23-2025 Nucleated RBC/100 WBC (Bld) [Ratio] 0 % 0-5 [facility] Platelet countOrdered By: Rosas Rocha on 01-23-2025 Platelets (Bld) [#/Vol] 317 10*3/uL 150-450 [facility] Potassium measurement (mass/ volume)Ordered By: Ian Rocha on 01-23-2025 Potassium (Unsp spec) [Mass/Vol] 3.4 mmol/L 3.3-5.1 [facility] ,Serum,hCG Quali.on 01-23-2025 HCG, SERUM QUAL Negative Normal [facility] Comment on above: Performed By: #### B TS, L100.0100 #### [facility] [address] [place], [address] RBC Auto (Bld) [#/Vol]Ordere d By: Ian Rocha on 01-23-2025 RBC (Bld) [#/Vol] 4.57 10*6/uL 4.2-5.4 [facility] Serum beta-hCG test, qualita tiveOrdered By: Ian Rocha on 01-23-2025 Beta HCG ( test) Ql Negative [facility] Serum creatinine measurement (mass/volume)Ordered By: Ian Rocha on 01-23-2025 Creatinine [Mass/Vol] 0.55 mg/dL Low 0.70-1.20 [facility] Serum glucose measurement (m ass/volume)Ordered By: Ian Rocha on 01-23-2025 Glucose [Mass/Vol] 229 mg/dL High 70-99 [facility] Serum or plasma calcium patrick urement (mass/volume)Ordered By: Ian Rocha on 01-23-2025 Calcium [Mass/Vol] 9.2 mg/dL 7.6-11.0 [facility] Serum or plasma urea nitroge n measurement (mass/volume)Ordered By: Ian Rocha on 01-23-2025 Urea nitrogen [Mass/Vol] 10 mg/dL 4-19 [facility] Sodium levelOrdered By: Ian Rocha on 01-23-2025 Sodium [Moles/Vol] 138 mmol/L 133-145 [facility] White blood cell (WBC) count Ordered By: Ian Rocha on 01-23-2025 WBC (Bld) [#/Vol] 7.6 10*3/uL 4.4-11.0 [facility] Hemoglobin A1con 01-21-2025 HbA1c (Bld) [Mass fraction] 6.8 % High <=5.6 [facility] Comment on above: Result Comment: Norm al < 5.7 % Prediabetic 5.7 - 6.4 % Diabetic >or= 6.5 % Please note range changes. Performed By: #### L 501.9958 ####[facility] [id number] [place], [place], [id number] Hemoglobin A1c percentageOrd ered By: Claude Tomlin on 01-21-2025 HbA1c (Bld) [Mass fraction] 6.8 % High <5.7 [facility] Comment on above: Normal < 5.7 % Predi abetic 5.7 - 6.4 % Diabetic >or= 6.5 % Please note range changes. LDHon 01-21-2025 LDH 156 U/L Normal 84-246 [facility] Comment on above: Performed By: #### B , L100.0100 #### [facility] [address] [place], [address] Magnesiumon 01-21-2025 Magnesium [Mass/Vol] 1.8 mg/dL Normal 1.5-2.2 [facility] Comment on above: Performed By: #### B , L100.0100 #### [facility] [address] [place], [address] Uric Acidon 01-21-2025 URIC 4.0 mg/dL Normal 2.6-6.0 [facility] Comment on above: Result Comment: The drugs N-Acetylcysteine and Metamizole may falsely depress this assay. Performed By: #### B , L100.0100 #### [facility] [address] [place], [address] Urinalysis, Completeon 01-21 BACTERIA RARE Normal None Seen [facility] Comment on above: Order Comment: CLEAN CATCH Performed By: #### L 400.0001 ####[facility] [address] [place], [address] EPI,SQUAMOUS 5-10 SEEN Normal 5-10 [facility] Comment on above: Order Comment: CLEAN CATCH Performed By: #### L 400.0001 ####[facility] [address] [place], [address] WBC 5-10 SEEN Normal 0-5 [facility] Comment on above: Order Comment: CLEAN CATCH Performed By: #### L 400.0001 ####[facility] [address] [place], [address] Absolute lymphocyte countOrd ered By: Elie Mo on 01-20-2025 Lymphocytes Auto (Unsp spec) [#/Vol] 2.71 10*3/uL 0.83-4.51 [facility] Absolute neutrophil countOrd ered By: Elie Mo on 01-20-2025 Neutrophils (Bld) [#/Vol] 3.9 10*3/uL 2.0-7.7 [facility] Anion gap in Serum or Plasma Ordered By: Elie Mo on 01-20-2025 Anion gap [Moles/Vol] 13 mmol/L - [facility] Automated lymphocyte count a s percentage of total leukocytesOrdered By: Elie Mo on 01-20-2025 Lymphocytes/100 WBC Auto (Unsp spec) 36.6 % [facility] BUN/creatinine ratioOrdered By: Elie Mo on 01-20-2025 Urea nitrogen/Creatinine [Mass ratio] 18.5 mg/mg - [facility] Basic Metabolic Profile (BMP )on 01-20-2025 BUN/CRE 18.5 RATIO Normal - [facility] Comment on above: Performed By: #### L 400.0001 #### [facility] [address] [place], [address] Calcium [Mass/Vol] 9.2 mg/dL Normal 7.6-11.0 [facility] Comment on above: Performed By: #### L 400.0001 #### [facility] [address] [place], [address] Chloride [Moles/Vol] 105 mmol/L Normal 98-108 [facility] Comment on above: Performed By: #### L 400.0001 #### [facility] [address] [place], [address] CO2 [Moles/Vol] 21.5 mmol/L Normal 21.0-32.0 [facility] Comment on above: Performed By: #### L 400.0001 #### [facility] [address] [place], [address] Creatinine [Mass/Vol] 0.67 mg/dL Low 0.70-1.20 [facility] Comment on above: Performed By: #### L 400.0001 #### [facility] [address] [place], [address] ECRCL 132.14 ml/min Normal 50-250 [facility] Comment on above: Performed By: #### L 400.0001 #### [facility] [address] [place], [address] GAP 13 Normal 5-15 [facility] Comment on above: Performed By: #### L 400.0001 #### [facility] [address] [place], [address] GFR/1.73 sq M.predicted among non-blacks MDRD (S/P/Bld) [Vol rate/Area] 121 mL/min/{1.73_m2} Normal >60 [facility] Comment on above: Result Comment: mL/m in/1.73m2 CKD-EPI Creatinine Equation (2020) Performed By: #### L 400.0001 #### [facility] [address] [place], [address] Glucose [Mass/Vol] 206 mg/dL High 70-99 [facility] Comment on above: Performed By: #### L 400.0001 #### [facility] [address] [place], [address] Potassium [Moles/Vol] 3.5 mmol/L Normal 3.3-5.1 [facility] Comment on above: Performed By: #### L 400.0001 #### [facility] [address] [place], [address] Sodium [Moles/Vol] 140 mmol/L Normal 133-145 [facility] Comment on above: Performed By: #### L 400.0001 #### [facility] [address] [place], [address] Urea nitrogen [Mass/Vol] 12 mg/dL Normal 4-19 [facility] Comment on above: Performed By: #### L 400.0001 #### [facility] [address] [place], [address] Basophil percentageOrdered B y: Elie Mo on 01-20-2025 Basophils/100 WBC (Bld) 0.7 % 0-1 [facility] Bilirubin Test strip Ql (U)O rdered By: Elie Mo on 01-20-2025 Bilirubin Ql (U) Negative Negative [facility] Bilirubin directOrdered By: Elie Mo on 01-20-2025 Bilirubin.direct [Mass/Vol] 0.10 mg/dL 0.00-0.30 [facility] Bilirubin, totalOrdered By: Elie Mo on 01-20-2025 Bilirubin [Mass/Vol] 0.23 mg/dL 0.00-1.30 [facility] CBC W/Diff, Automatedon 01-07 Absolute Lymph 2.71 X10 3/uL Normal 0.83-4.51 [facility] Comment on above: Performed By: #### Jo KWON, L100.0100 #### [facility] [address] [place], [address] Absolute Neut 3.9 X10 3/uL Normal 2.0-7.7 [facility] Comment on above: Performed By: #### Jo KWON, L100.0100 #### [facility] [address] [place], [address] Basophils/100 WBC (Bld) 0.7 % Normal 0-1 [facility] Comment on above: Performed By: #### Jo TS, L100.0100 #### [facility] [address] [place], [address] Eosinophils/100 WBC (Bld) 3.2 % Normal 0-5 [facility] Comment on above: Performed By: #### Jo TS, L100.0100 #### [facility] [address] [place], [address] Erythrocyte distribution width (RBC) [Ratio] 12.5 % Normal 11.6-14.6 [facility] Comment on above: Performed By: #### Jo KWON, L100.0100 #### [facility] [address] [place], [address] Hematocrit (Bld) [Volume fraction] 38.4 % Normal 37-47 [facility] Comment on above: Performed By: #### Jo KWON, L100.0100 #### [facility] [address] [place], [address] Hemoglobin (Bld) [Mass/Vol] 12.9 g/dL Normal 12.0-15.0 [facility] Comment on above: Performed By: #### Jo KWON, L100.0100 #### [facility] [address] [place], [address] IG% 0.300 Normal 0.0-0.9 [facility] Comment on above: Result Comment: IG% - Immature Granulocytes (promyelocytes, myelocytes and metamyelocytes) > 1% indicates that a LEFT SHIFT is Present. Performed By: #### Jo KWON, L100.0100 #### [facility] [address] [place], [address] Lymphocytes/100 WBC (Bld) 36.6 % Normal 19-41 [facility] Comment on above: Performed By: #### Jo KWON, L100.0100 #### [facility] [address] [place], [address] MCH (RBC) [Entitic mass] 27.8 pg Normal 27.0-32.0 [facility] Comment on above: Performed By: #### Jo KWON, L100.0100 #### [facility] [address] [place], [address] MCHC (RBC) [Mass/Vol] 33.6 g/dL Normal 32-36 [facility] Comment on above: Performed By: #### Jo KWON, L100.0100 #### [facility] [address] [place], [address] MCV (RBC) [Entitic vol] 82.8 fL Normal 81-99 [facility] Comment on above: Performed By: #### Jo KWON, L100.0100 #### [facility] [address] [place], [address] Monocytes/100 WBC (Bld) 6.1 % Normal 0-10 [facility] Comment on above: Performed By: #### Jo KWON, L100.0100 #### [facility] [address] [place], [address] Neutrophils/100 WBC (Bld) 53.1 % Normal 47-70 [facility] Comment on above: Performed By: #### Jo KWON, L100.0100 #### [facility] [address] [place], [address] Nucleated RBC (Bld) [#/Vol] 0 10*3/uL Normal 0-5 [facility] Comment on above: Performed By: #### Jo KWON, L100.0100 #### [facility] [address] [place], [address] Platelet mean volume (Bld) [Entitic vol] 9.6 fL Normal 6.2-12.0 [facility] Comment on above: Performed By: #### Jo KWON, L100.0100 #### [facility] [address] [place], [address] Platelets (Bld) [#/Vol] 289 10*3/uL Normal 150-450 [facility] Comment on above: Performed By: #### Jo KWON, L100.0100 #### [facility] [address] [place], [address] RBC (Bld) [#/Vol] 4.64 10*6/uL Normal 4.2-5.4 [facility] Comment on above: Performed By: #### B TS, L100.0100 #### [facility] [address] [place], [address] RDW SD 37.6 fl Normal 35.1-43.9 [facility] Comment on above: Performed By: #### B TS, L100.0100 #### [facility] [address] [place], [address] WBC (Bld) [#/Vol] 7.4 10*3/uL Normal 4.4-11.0 [facility] Comment on above: Performed By: #### B TS, L100.0100 #### [facility] [address] [place], [address] CNOVon 01-20-2025 CNOV Normal [facility] CO2 (BldV) [Moles/Vol]Ordere d By: Elie Mo on 01-20-2025 CO2 [Moles/Vol] 28 mmol/L 23-33 [facility] Carbon dioxide, total [Moles /volume] in Central venous bloodOrdered By: Elie Mo on 01-20-2025 CO2 [Moles/Vol] 21.5 mmol/L 21.0-32.0 [facility] Chloride assayOrdered By: Lucia Mo on 01-20-2025 Chloride [Moles/Vol] 105 mmol/L 98-108 [facility] Emergency Department Summary on 01-20-2025 Emergency Department Summary [facility] Medical Records Department [address] [place] [address] Emergency Department Summary 01/20/25 MR#: [id number] Acct: [id number] Name: MELISSA BYRNE AMRITA Rep #: [id number] : 1995 29 From: Eile Mo DO PCP: Dr. Jamari yBrne MD Status:DEP ER Location: ED HPI History [...] her and therefore she presents for evaluation [facility] Medical History Seizures Asthma Osteoarthritis Diabetes [...] or gallop (more content not included)... Normal [facility] Eosinophil percentageOrdered By: Elie Mo on 01-20-2025 Eosinophils/100 WBC (Bld) 3.2 % 0-5 [facility] Erythrocyte distribution wid th ratioOrdered By: Elie Mo on 01-20-2025 Erythrocyte distribution width (RBC) [Ratio] 12.5 % 11.6-14.6 [facility] Erythrocyte distribution wid th standard deviationOrdered By: Elie Mo on 01-20-2025 Erythrocyte distribution width (RBC) [Ratio] 37.6 fl 35.1-43.9 [facility] Glomerular filtration rate ( GFR) estimation/1.73 sq m using serum, plasma, or whole bOrdered By: Elie Mo on 01-20-2025 GFR/1.73 sq M.predicted among non-blacks MDRD (S/P/Bld) [Vol rate/Area] 121 mL/min/{1.73_m2} >60 [facility] Comment on above: mL/min/1.73m2 CKD-EP I Creatinine Equation (2020) HEMOGLOBIN A1C (POC)on 01-20 HbA1c (Bld) [Mass fraction] 7.1 % Abnormal 4.3 - 5.6 % [facility] Comment on above: Location:[facility], [address] [place] [address], [facility] Point of care (POC) Hemoglobin A1c (HGBA1C) [...] specific diabetes management situations: The POC device cushion maker hand provides a normal range of 4.2% to 6.5% for the HGBA1C POC test. However, the [place] [employer] guidelines indicate that patients with [...] Interpretation and review of laboratory results Abnormal [facility] Hematocrit Auto (Bld) [Volum e fraction]Ordered By: Elie Mo on 01-20-2025 Hematocrit (Bld) [Volume fraction] 38.4 % 37-47 [facility] Hemoglobin measurementOrdere d By: Elie Mo on 01-20-2025 Hemoglobin (Bld) [Mass/Vol] 12.9 g/dL 12.0-15.0 [facility] Immature granulocytes/100 WB C Auto (Bld)Ordered By: Elie Mo on 01-20-2025 Immature granulocytes/100 WBC (Bld) 0.300 % 0.0-0.9 [facility] Comment on above: IG% - Immature Granu locytes (promyelocytes, myelocytes and metamyelocytes) > 1% indicates that a LEFT SHIFT is Present. Ketones Test strip Ql (U)Ord ered By: Elie Mo on 01-20-2025 Ketones Ql (U) Negative Negative [facility] - Chemistry and C hemistry - challengeOrdered By: Elie Mo on 01-20-2025 AST [Catalytic activity/Vol] 17 U/L <32 [facility] Lactate dehydrogenase (LDH) measurementOrdered By: Elie Mo on 01-20-2025 LDH [Catalytic activity/Vol] 156 U/L 84-246 [facility] Lipaseon 01-20-2025 Lipase [Catalytic activity/Vol] 29 U/L Normal 13-75 [facility] Comment on above: Result Comment: Carson barker note: LIPASE revised reference range effective 22. New Lipase methodology. Expected to produce lower values than the previous assay method. NEW Reference Range: 13 - 75 U/L Performed By: #### L 500.2500, L500.3400, L501.2450 ####[facility] [address] [place], [place], [id number] Lipase measurementOrdered By : Elie Mo on 01-20-2025 Lipase [Catalytic activity/Vol] 29 U/L 13-75 [facility] Comment on above: Please note:LIPASE r evised reference range effective 22. New Lipase methodology. Expected to produce lower values than the previous assay method. NEW Reference Range: 13 - 75 U/L Liver Profileon 01-20-2025 Albumin [Mass/Vol] 3.9 g/dL Normal 3.5-5.0 [facility] Comment on above: Performed By: #### L 400.0001 #### [facility] [address] [place], [address] ALK PHOS 89 U/L Normal 35-104 [facility] Comment on above: Performed By: #### L 400.0001 #### [facility] [address] [place], [address] ALT [Catalytic activity/Vol] 37 U/L High <=34 [facility] Comment on above: Performed By: #### L 400.0001 #### [facility] [address] [place], [address] AST [Catalytic activity/Vol] 17 U/L Normal <=31 [facility] Comment on above: Performed By: #### L 400.0001 #### [facility] [address] [place], [address] Bilirubin [Mass/Vol] 0.23 mg/dL Normal 0.00-1.30 [facility] Comment on above: Performed By: #### L 400.0001 #### [facility] [address] [place], [address] Bilirubin.direct [Mass/Vol] 0.10 mg/dL Normal 0.00-0.30 [facility] Comment on above: Performed By: #### L 400.0001 #### [facility] [address] [place], [address] Globulin (S) [Mass/Vol] 3.0 g/dL Normal 2.2-4.2 [facility] Comment on above: Performed By: #### L 400.0001 #### [facility] [address] [place], [address] T PROT 6.9 g/dL Normal 5.9-8.4 [facility] Comment on above: Performed By: #### L 400.0001 #### [facility] [address] [place], [address] MCV (mean corpuscular volume ) determinationOrdered By: Elie Mo on 01-20-2025 MCV (RBC) [Entitic vol] 82.8 fL 81-99 [facility] Magnesium measurement (mass/ volume)Ordered By: Elie Mo on 01-20-2025 Magnesium (Unsp spec) [Mass/Vol] 1.8 mg/dL 1.5-2.2 [facility] Mean corpuscular hemoglobin (MCH) determinationOrdered By: Elie Mo on 01-20-2025 MCH (RBC) [Entitic mass] 27.8 pg 27.0-32.0 [facility] Mean corpuscular hemoglobin concentration (MCHC) determinationOrdered By: Elie Mo on 01-20-2025 MCHC (RBC) [Mass/Vol] 33.6 g/dL 32-36 [facility] Mean platelet volume determi nationOrdered By: Elie Mo on 01-20-2025 Platelet mean volume (Bld) [Entitic vol] 9.6 fL 6.2-12.0 [facility] Microscopic analysis of urin e for red blood cells (RBC)Ordered By: Elie Mo on 01-20-2025 Microscopic analysis of urine for red blood cells (RBC) 0 SEEN /hpf 0-5 [facility] Monocyte percentageOrdered B y: Elie Mo on 01-20-2025 Monocytes/100 WBC (Bld) 6.1 % 0-10 [facility] Mucus LM Ql (Urine sed)Order ed By: Elie Mo on 01-20-2025 Mucus Ql (Urine sed) 0 SEEN /hpf [facility] Neutrophil percentageOrdered By: Elie Mo on 01-20-2025 Neutrophils/100 WBC (Bld) 53.1 % 47-70 [facility] Nitrite Test strip Ql (U)Ord ered By: Elie oM on 01-20-2025 Nitrite Ql (U) Negative Negative [facility] No Panel InformationOrdered By: Elie Mo on 01-20-2025 Blood Gas Sample Site Not entered [facility] Blood Gas Specimen Type RD [facility] Oxygen Delivery Device Room Air [facility] Nucleated red blood cell per centageOrdered By: Elie Mo on 01-20-2025 Nucleated RBC/100 WBC (Bld) [Ratio] 0 % 0-5 [facility] Platelet countOrdered By: Lucia Mo on 01-20-2025 Platelets (Bld) [#/Vol] 289 10*3/uL 150-450 [facility] Potassium measurement (mass/ volume)Ordered By: Elie Mo on 01-20-2025 Potassium (Unsp spec) [Mass/Vol] 3.5 mmol/L 3.3-5.1 [facility] ,Serum,hCG Quali.on 01-20-2025 HCG, SERUM QUAL Negative Normal [facility] Comment on above: Performed By: #### B TS, L100.0100 #### [facility] [address] [place] [address]. [place], [address] Protein Test strip Ql (U)Ord ered By: Elie Mo on 01-20-2025 Protein Ql (U) 30 mg/dl High Negative [facility] RBC Auto (Bld) [#/Vol]Ordere d By: Elie Mo on 01-20-2025 RBC (Bld) [#/Vol] 4.64 10*6/uL 4.2-5.4 [facility] Serum beta-hCG test, qualita tiveOrdered By: Elie Mo on 01-20-2025 Beta HCG ( test) Ql Negative [facility] Serum creatinine measurement (mass/volume)Ordered By: Elie Mo on 01-20-2025 Creatinine [Mass/Vol] 0.67 mg/dL Low 0.70-1.20 [facility] Serum globulin measurementOr dered By: Elie Mo on 01-20-2025 Globulin (S) [Mass/Vol] 3.0 g/dL 2.2-4.2 [facility] Serum glucose measurement (m ass/volume)Ordered By: Elie Mo on 01-20-2025 Glucose [Mass/Vol] 206 mg/dL High 70-99 [facility] Serum or plasma alanine schafer otransferase (ALT) measurementOrdered By: Elie Mo on 01-20-2025 ALT [Catalytic activity/Vol] 37 U/L High <35 [facility] Serum or plasma albumin patrick urement (mass/volume)Ordered By: Elie Mo on 01-20-2025 Albumin [Mass/Vol] 3.9 g/dL 3.5-5.0 [facility] Serum or plasma alkaline aniad sphatase measurementOrdered By: Elie Mo on 01-20-2025 ALP [Catalytic activity/Vol] 89 U/L 35-104 [facility] Serum or plasma calcium patrick urement (mass/volume)Ordered By: Elie Mo on 01-20-2025 Calcium [Mass/Vol] 9.2 mg/dL 7.6-11.0 [facility] Serum or plasma urea nitroge n measurement (mass/volume)Ordered By: Elie Mo on 01-20-2025 Urea nitrogen [Mass/Vol] 12 mg/dL 4-19 [facility] Serum or plasma uric acid me asurement (mass/volume)Ordered By: Elie Mo on 01-20-2025 Urate [Mass/Vol] 4.0 mg/dL 2.6-6.0 [facility] Comment on above: The drugs N-Acetylcy steine and Metamizole may falsely depress this assay. Sodium levelOrdered By: Irving Mo on 01-20-2025 Sodium [Moles/Vol] 140 mmol/L 133-145 [facility] Squamous epithelial cells de tection in urine sediment by light microscopyOrdered By: Elie Mo on 01-20-2025 Epithelial cells.squamous LM Ql (Urine sed) 5-10 SEEN /hpf 5-10 [facility] Total proteinOrdered By: Khoa Mo on 01-20-2025 Protein [Mass/Vol] 6.9 g/dL 5.9-8.4 [facility] Urinalysis, Completeon 01-20 BILIRUBIN URINE Negative Normal Negative [facility] Comment on above: Order Comment: CLEAN CATCH Performed By: #### L 400.0001 ####[facility] [address] [place], [address] Clarity (U) Clear Normal Clear [facility] Comment on above: Order Comment: CLEAN CATCH Performed By: #### L 400.0001 ####[facility] [address] [place], [address] Color (U) Straw Normal Yellow [facility] Comment on above: Order Comment: CLEAN CATCH Performed By: #### L 400.0001 ####[facility] [address] [place], [address] GLUCOSE, UR Normal Normal Normal [facility] Comment on above: Order Comment: CLEAN CATCH Performed By: #### L 400.0001 ####[facility] [address] [place], [address] KETONE UR Negative Normal Negative [facility] Comment on above: Order Comment: CLEAN CATCH Performed By: #### L 400.0001 ####[facility] [address] [place], [address] LEUK ESTERASE 25 /ul Abnormal Negative [facility] Comment on above: Order Comment: CLEAN CATCH Performed By: #### L 400.0001 ####[facility] [address] [place], [address] Nitrite Ql (U) Negative Normal Negative [facility] Comment on above: Order Comment: CLEAN CATCH Performed By: #### L 400.0001 ####[facility] [address] [place], [address] OCCULT BLOOD-UR Negative Normal Negative [facility] Comment on above: Order Comment: CLEAN CATCH Performed By: #### L 400.0001 ####[facility] [address] [place], [address] pH UR 6.0 Normal 5.0 - 8.0 [facility] Comment on above: Order Comment: CLEAN CATCH Performed By: #### L 400.0001 ####[facility] [address] [place], [address] PROT DIPSTX 30 mg/dl Abnormal Negative [facility] Comment on above: Order Comment: CLEAN CATCH Performed By: #### L 400.0001 ####[facility] [address] [place], [address] SP.GR. DIPSTX 1.020 Normal 1.002-1.030 [facility] Comment on above: Order Comment: CLEAN CATCH Performed By: #### L 400.0001 ####[facility] [address] [place], [address] UROBILI 1 mg/dl Abnormal Normal [facility] Comment on above: Order Comment: CLEAN CATCH Performed By: #### L 400.0001 ####[facility] [address] [place], [address] Mucus Ql (Urine sed) 0 SEEN Normal [facility] Comment on above: Order Comment: CLEAN CATCH Performed By: #### L 400.0001 ####[facility] [address] [place], [address] RBC 0 SEEN Normal 0-5 [facility] Comment on above: Order Comment: CLEAN CATCH Performed By: #### L 400.0001 ####[facility] [address] [place], [address] Urine clarityOrdered By: Khoa Mo on 01-20-2025 Clarity (U) Clear Clear [facility] Urine color determinationOrd ered By: Elie Mo on 01-20-2025 Color (U) Straw Yellow [facility] Urine glucose detectionOrder ed By: Elie Mo on 01-20-2025 Glucose Ql (U) Normal mg/dl Normal [facility] Urine leukocyte esterase det ection by dipstickOrdered By: Elie Mo on 01-20-2025 Leukocyte esterase Test strip Ql (U) 25 /ul High Negative [facility] Urine pHOrdered By: Elie bateman on 01-20-2025 pH (U) 6.0 [pH] 5.0 - 8.0 [facility] Urine sediment bacteria coun t by microscopy (number/high power field)Ordered By: Elie Mo on 01-20-2025 Bacteria LM.HPF (Urine sed) [#/Area] RARE /hpf None Seen [facility] Urine specific gravity measu rementOrdered By: Elie Mo on 01-20-2025 Specific gravity (U) [Rel density] 1.020 1.002-1.030 [facility] Urine urobilinogen measureme ntOrdered By: Elie Mo on 01-20-2025 Urobilinogen Ql (U) 1 mg/dl High Normal [facility] Venous Blood Gason Blood Gas Type RD Normal [facility] Comment on above: Performed By: #### L 400.0001 #### [facility] [address] [place], [address] CO2 [Moles/Vol] 28 mmol/L Normal 23-33 [facility] Comment on above: Performed By: #### L 400.0001 #### [facility] [address] [place], [address] HCO3 (Bld) [Moles/Vol] 27 mmol/L High 22-26 [facility] Comment on above: Performed By: #### L 400.0001 #### [facility] [address] [place], [address] O2 Delivery Dev Room Air Normal [facility] Comment on above: Performed By: #### L 400.0001 #### [facility] [address] [place], [address] SITE Not entered [facility] Comment on above: Performed By: #### L 400.0001 #### [facility] [address] [place], [address] VBG BE 2 mmol/L Normal -1.0-3.5 [facility] Comment on above: Performed By: #### L 400.0001 #### [facility] [address] [place], [place], [address] VBG pCO2 41.2 mmHg Normal 41-51 [facility] Comment on above: Performed By: #### L 400.0001 #### [facility] [address] [place], [address] VBG pH 7.42 Normal 7.32-7.42 [facility] Comment on above: Performed By: #### L 400.0001 #### [facility] [address] [place], [address] VBG PO2 48 mmHg High 25-40 [facility] Comment on above: Performed By: #### L 400.0001 #### [facility] [address] [place], [address] VBG SO2 84 High 50-70 [facility] Comment on above: Performed By: #### L 400.0001 #### [facility] [address] [place], [address] Venous blood base excess brigitte surementOrdered By: Elie Mo on 01-20-2025 Base excess Calc (BldV) [Moles/Vol] 2 mmol/L -1.0-3.5 [facility] Venous blood bicarbonate brigitte surementOrdered By: Elie Mo on 01-20-2025 HCO3 (Bld) [Moles/Vol] 27 mmol/L High 22-26 [facility] Venous blood oxygen saturati on measurementOrdered By: Elie Mo on 01-20-2025 Oxygen saturation in Blood 84 % High 50-70 [facility] Venous blood pH measurementO rdered By: Elie Mo on 01-20-2025 pH (BldV) 7.42 [pH] 7.32-7.42 [facility] Venous blood partial pressur e of carbon dioxide measurementOrdered By: Elie Mo on 01-20-2025 CO2 (BldV) [Partial pressure] 41.2 mm[Hg] 41-51 [facility] Venous blood partial pressur e of oxygen measurementOrdered By: Elie Mo on 01-20-2025 Oxygen (BldV) [Partial pressure] 48 mm[Hg] High 25-40 [facility] White blood cell (WBC) count Ordered By: Elie Mo on 01-20-2025 WBC (Bld) [#/Vol] 7.4 10*3/uL 4.4-11.0 [facility] White blood cell countOrdere d By: Elie Mo on 01-20-2025 White blood cell count 5-10 SEEN /hpf 0-5 [facility] HISTORY PHYSICALon HISTORY PHYSICAL Normal [facility] AST(SGOT)on 12-16-2024 AST [Catalytic activity/Vol] 17 U/L Normal <=31 [facility] Comment on above: Performed By: #### Jo KWON, L100.0100 #### [facility] [address] [place], [address] Alanine Aminotransferas (SGP T)on 12-16-2024 ALT [Catalytic activity/Vol] 24 U/L Normal <=34 [facility] Comment on above: Performed By: #### Jo KWON, L100.0100 #### [facility] [address] [place], [address] Bedside Glucoseon 12-16-2024 FINGERSTICK GLU 115 mg/dL High 74-106 [facility] Comment on above: Result Comment: ELLEN ZAMBRANO OF PATIENT CARE PER NURSING PROTOCOL Performed By: #### L 100.0100, L500.2500 #### [facility] [address] [place], [address] CBC-Complete Blood Cnt No Di ffon 12-16-2024 Erythrocyte distribution width (RBC) [Ratio] 12.7 % Normal 11.6-14.6 [facility] Comment on above: Performed By: #### Jo KWON, L100.0100 #### [facility] [address] [place], [address] Hematocrit (Bld) [Volume fraction] 38.6 % Normal 37-47 [facility] Comment on above: Performed By: #### Jo KWON, L100.0100 #### [facility] [address] [place], [address] Hemoglobin (Bld) [Mass/Vol] 12.9 g/dL Normal 12.0-15.0 [facility] Comment on above: Performed By: #### Jo KWON, L100.0100 #### [facility] [address] [place], [address] MCH (RBC) [Entitic mass] 28.4 pg Normal 27.0-32.0 [facility] Comment on above: Performed By: #### Jo KWON, L100.0100 #### [facility] [address] [place], [address] MCHC (RBC) [Mass/Vol] 33.4 g/dL Normal 32-36 [facility] Comment on above: Performed By: #### Jo KWON, L100.0100 #### [facility] [address] [place], [address] MCV (RBC) [Entitic vol] 85.0 fL Normal 81-99 [facility] Comment on above: Performed By: #### Jo KWON, L100.0100 #### [facility] [address] [place], [address] Platelet mean volume (Bld) [Entitic vol] 9.3 fL Normal 6.2-12.0 [facility] Comment on above: Performed By: #### Jo KWON, L100.0100 #### [facility] [address] [place], [address] Platelets (Bld) [#/Vol] 378 10*3/uL Normal 150-450 [facility] Comment on above: Performed By: #### Jo KWON, L100.0100 #### [facility] [address] [place], [address] RBC (Bld) [#/Vol] 4.54 10*6/uL Normal 4.2-5.4 [facility] Comment on above: Performed By: #### Jo TS, L100.0100 #### [facility] [address] [place], [address] RDW SD 38.8 fl Normal 35.1-43.9 [facility] Comment on above: Performed By: #### Jo KWON, L100.0100 #### [facility] [address] [place], [address] WBC (Bld) [#/Vol] 8.3 10*3/uL Normal 4.4-11.0 [facility] Comment on above: Performed By: #### Jo KWON, L100.0100 #### [facility] [address] [place], [address] CNPNon 12-16-2024 CNPN Normal [facility] Erythrocyte distribution wid th ratioOrdered By: Mariajose Nickerson on 12-16-2024 Erythrocyte distribution width (RBC) [Ratio] 12.7 % 11.6-14.6 [facility] Erythrocyte distribution wid th standard deviationOrdered By: Mariajose Nickerson on 12-16-2024 Erythrocyte distribution width (RBC) [Ratio] 38.8 fl 35.1-43.9 [facility] Glomerular filtration rate ( GFR) estimation/1.73 sq m using serum, plasma, or whole bOrdered By: Mariajose Nickerson on 12-16-2024 GFR/1.73 sq M.predicted among non-blacks MDRD (S/P/Bld) [Vol rate/Area] 126 mL/min/{1.73_m2} >60 [facility] Comment on above: mL/min/1.73m2 CKD-EP I Creatinine Equation (2020) [facility] deOrdered By: Mariajose Nickerson on 12-16-2024 Glucose [Mass/Vol] 115 mg/dL High 74-106 [facility] Comment on above: MANAGEMENT OF PATIEN T CARE PER NURSING PROTOCOL Hematocrit Auto (Bld) [Volum e fraction]Ordered By: Mariajose Nickerson on 12-16-2024 Hematocrit (Bld) [Volume fraction] 38.6 % 37-47 [facility] Hemoglobin measurementOrdere d By: Mariajose Nickerson on 12-16-2024 Hemoglobin (Bld) [Mass/Vol] 12.9 g/dL 12.0-15.0 [facility] - Chemistry and C hemistry - challengeOrdered By: Mariajose Nickerson on 12-16-2024 AST [Catalytic activity/Vol] 17 U/L <32 [facility] MCV (mean corpuscular volume ) determinationOrdered By: Mariajose Nickerson on 12-16-2024 MCV (RBC) [Entitic vol] 85.0 fL 81-99 [facility] Mean corpuscular hemoglobin (MCH) determinationOrdered By: Mariajose Nickerson on 12-16-2024 MCH (RBC) [Entitic mass] 28.4 pg 27.0-32.0 [facility] Mean corpuscular hemoglobin concentration (MCHC) determinationOrdered By: Mariajose Nickerson on 12-16-2024 MCHC (RBC) [Mass/Vol] 33.4 g/dL 32-36 [facility] Mean platelet volume determi nationOrdered By: Mariajose Nickerson on 12-16-2024 Platelet mean volume (Bld) [Entitic vol] 9.3 fL 6.2-12.0 [facility] OB Triage Physician Noteon 0 12-16-2024 OB Triage Physician Note [facility] Medical Records Department [address] [place] [address] OB Triage Physician Note 12/16/242022 MR#: [id number] Acct: [id number] Name: MELISSA BYRNE Rep #: [id number] : 1995 29 From: Mariajose Nickerson CNM PCP: Dr. aJmari Byrne MD Status:REG CLI Y Location: [place] [address] HPI - General HPI Narrative MELISSA BYRNE, [...] Nickerson; Dr. Jamari Byrne MD Signed Normal [facility] Platelet countOrdered By: Tamera Nickerson on 12-16-2024 Platelets (Bld) [#/Vol] 378 10*3/uL 150-450 [facility] RBC Auto (Bld) [#/Vol]Ordere d By: Mariajose Nickerson on 12-16-2024 RBC (Bld) [#/Vol] 4.54 10*6/uL 4.2-5.4 [facility] Serum Creatinine AND GFRon 0 12-16-2024 Creatinine [Mass/Vol] 0.57 mg/dL Low 0.70-1.20 [facility] Comment on above: Performed By: #### B SHYANN, L100.0100 #### [facility] [address] [place], [address] ECRCL 250.08 ml/min High 50-250 [facility] Comment on above: Performed By: #### Jo KWON, L100.0100 #### [facility] [address] [place], [address] GFR/1.73 sq M.predicted among non-blacks MDRD (S/P/Bld) [Vol rate/Area] 126 mL/min/{1.73_m2} Normal >60 [facility] Comment on above: Result Comment: mL/m in/1.73m2 CKD-EPI Creatinine Equation (2020) Performed By: #### B SHYANN, L100.0100 #### [facility] [address] [place], [address] Serum creatinine measurement (mass/volume)Ordered By: Mariajose Nickerson on 12-16-2024 Creatinine [Mass/Vol] 0.57 mg/dL Low 0.70-1.20 [facility] Serum or plasma alanine schafer otransferase (ALT) measurementOrdered By: Mariajose Nickerson on 12-16-2024 ALT [Catalytic activity/Vol] 24 U/L <35 [facility] Serum or plasma uric acid me asurement (mass/volume)Ordered By: Mariajose Nickerson on 12-16-2024 Urate [Mass/Vol] 5.3 mg/dL 2.6-6.0 [facility] Comment on above: The drugs N-Acetylcy steine and Metamizole may falsely depress this assay. Uric Acidon 12-16-2024 URIC 5.3 mg/dL Normal 2.6-6.0 [facility] Comment on above: Result Comment: The drugs N-Acetylcysteine and Metamizole may falsely depress this assay. Performed By: #### B SHYANN, L100.0100 #### [facility] [address] [place], [address] White blood cell (WBC) count Ordered By: Mariajose Nickerson on 12-16-2024 WBC (Bld) [#/Vol] 8.3 10*3/uL 4.4-11.0 [facility] CNPNon 12-15-2024 CNPN Normal [facility] Bedside Glucoseon 12-09-2024 FINGERSTICK GLU 97 mg/dL Normal 74-106 [facility] Comment on above: Result Comment: ELLEN GEMENT OF PATIENT CARE PER NURSING PROTOCOL Performed By: #### L 100.0100, L500.2500 #### [facility] [address] [place], [address] FINGERSTICK GLU 101 mg/dL Normal 74-106 [facility] Comment on above: Result Comment: ELLEN GEMENT OF PATIENT CARE PER NURSING PROTOCOL Performed By: #### L 400.0001 #### [facility] [address] [place], [address] Glucose measurement at [facility] deOrdered By: William Gramajo on 12-09-2024 Glucose [Mass/Vol] 97 mg/dL 74-106 [facility] Comment on above: MANAGEMENT OF PATIEN T CARE PER NURSING PROTOCOL Bedside Glucoseon 12-08-2024 FINGERSTICK GLU 125 mg/dL High 74-106 [facility] Comment on above: Result Comment: ELLEN GEMENT OF PATIENT CARE PER NURSING PROTOCOL Performed By: #### B TS, L100.0100 #### [facility] [address] [place], [address] FINGERSTICK GLU 93 mg/dL Normal 74-106 [facility] Comment on above: Result Comment: ELLEN GEMENT OF PATIENT CARE PER NURSING PROTOCOL Performed By: #### L 100.0100, L500.2500 #### [facility] [address] [place], [address] FINGERSTICK GLU 104 mg/dL Normal 74-106 [facility] Comment on above: Result Comment: ELLEN GEMENT OF PATIENT CARE PER NURSING PROTOCOL Performed By: #### B TS, L100.0100 #### [facility] [address] [place], [address] FINGERSTICK GLU 132 mg/dL High 74-106 [facility] Comment on above: Result Comment: ELLEN GEMENT OF PATIENT CARE PER NURSING PROTOCOL Performed By: #### L 400.0001 #### [facility] [address] [place], [address] CNPNon 12-08-2024 CNPN Normal [facility] Absolute lymphocyte countOrd ered By: William Gramajo on 12-07-2024 Lymphocytes Auto (Unsp spec) [#/Vol] 1.98 10*3/uL 0.83-4.51 [facility] Absolute neutrophil countOrd ered By: William Gramajo on 12-07-2024 Neutrophils (Bld) [#/Vol] 6.3 10*3/uL 2.0-7.7 [facility] Amphetamine detection with 1 000 ng/mL as cutoffOrdered By: William Gramajo on 12-07-2024 Amphetamines Screen method >1000 ng/mL Ql (U) Negative < 200 ng/mL [facility] Automated blood erythrocyte countOrdered By: William Gramajo on 12-07-2024 RBC (Bld) [#/Vol] 4.25 10*6/uL Normal 4.2-5.4 [facility] Comment on above: Performed By: #### B TS, L100.0100 #### [facility] [address] [place], [address] Automated blood hematocrit ( percentage)Ordered By: William Gramajo on 12-07-2024 Hematocrit (Bld) [Volume fraction] 36.0 % Low 37-47 [facility] Comment on above: Performed By: #### B TS, L100.0100 #### [facility] [address] [place], [address] Automated lymphocyte count a s percentage of total leukocytesOrdered By: William Gramajo on 12-07-2024 Lymphocytes/100 WBC Auto (Unsp spec) 22.0 % 19-41 [facility] Basophil percentageOrdered B y: William Gramajo on 12-07-2024 Basophils/100 WBC (Bld) 0.4 % Normal 0-1 [facility] Comment on above: Performed By: #### B TS, L100.0100 #### [facility] [address] [place], [address] Bedside Glucoseon 12-07-2024 FINGERSTICK GLU 143 mg/dL High 74-106 [facility] Comment on above: Result Comment: ELLEN GEMENT OF PATIENT CARE PER NURSING PROTOCOL Performed By: #### Jo TS, L100.0100 #### [facility] [address] [place], [address] FINGERSTICK GLU 118 mg/dL High 74-106 [facility] Comment on above: Result Comment: ELLEN GEMENT OF PATIENT CARE PER NURSING PROTOCOL Performed By: #### L 400.0001 #### [facility] [address] [place], [address] FINGERSTICK GLU 73 mg/dL Low 74-106 [facility] Comment on above: Result Comment: ELLEN GEMENT OF PATIENT CARE PER NURSING PROTOCOL Performed By: #### L 100.0100, L500.2500 #### [facility] [address] [place], [address] FINGERSTICK GLU 99 mg/dL Normal 74-106 [facility] Comment on above: Result Comment: ELLEN GEMENT OF PATIENT CARE PER NURSING PROTOCOL Performed By: #### L 400.0001 #### [facility] [address] [place], [address] CBC W/Diff, Automatedon 07- Absolute Lymph 1.98 X10 3/uL Normal 0.83-4.51 [facility] Comment on above: Performed By: #### Jo KWON, L100.0100 #### [facility] [address] [place], [address] Absolute Neut 6.3 X10 3/uL Normal 2.0-7.7 [facility] Comment on above: Performed By: #### Jo KWON, L100.0100 #### [facility] [address] [place], [address] IG% 0.600 Normal 0.0-0.9 [facility] Comment on above: Result Comment: IG% - Immature Granulocytes (promyelocytes, myelocytes and metamyelocytes) > 1% indicates that a LEFT SHIFT is Present. Performed By: #### Jo KWON, L100.0100 #### [facility] [address] [place], [address] Lymphocytes/100 WBC (Bld) 22.0 % Normal 19-41 [facility] Comment on above: Performed By: #### Jo KWON, L100.0100 #### [facility] [address] [place], [address] Nucleated RBC (Bld) [#/Vol] 0 10*3/uL Normal 0-5 [facility] Comment on above: Performed By: #### Jo KWON, L100.0100 #### [facility] [address] [place], [address] RDW SD 41.1 fl Normal 35.1-43.9 [facility] Comment on above: Performed By: #### Jo KWON, L100.0100 #### [facility] [address] [place], [address] Eosinophil percentageOrdered By: William Gramajo on 12-07-2024 Eosinophils/100 WBC (Bld) 1.0 % Normal 0-5 [facility] Comment on above: Performed By: #### B TS, L100.0100 #### [facility] [address] [place], [address] Erythrocyte distribution wid th ratioOrdered By: William Gramajo on 12-07-2024 Erythrocyte distribution width (RBC) [Ratio] 13.4 % Normal 11.6-14.6 [facility] Comment on above: Performed By: #### B TS, L100.0100 #### [facility] [address] [place], [address] Erythrocyte distribution wid th standard deviationOrdered By: William Gramajo on 12-07-2024 Erythrocyte distribution width (RBC) [Ratio] 41.1 fl 35.1-43.9 [facility] H AND P Exam - OB/GYNon 07- H&P Exam - RN STARS [facility] Medical Records Department [address] [place] [address] H P Exam - RN STARS 12/07/24 1223 MR#: [id number] Acct: [id number] Name: MELISSA BYRNE Rep #: [id number] : 1995 29 From: William Gramajo MD PCP: Dr. Jamari Byrne MD Status:ADM IN Location: [place] [address] HPI - General General Date of Admission: [...] MD; Dr. William Gramajo MD Signed Normal [facility] Hemoglobin measurementOrdere d By: William Gramajo on 12-07-2024 Hemoglobin (Bld) [Mass/Vol] 12.1 g/dL Normal 12.0-15.0 [facility] Comment on above: Performed By: #### B TS, L100.0100 #### [facility] [address] [place], [place], [address] Immature granulocytes/100 WB C Auto (Bld)Ordered By: William Gramajo on 12-07-2024 Immature granulocytes/100 WBC (Bld) 0.600 % 0.0-0.9 [facility] Comment on above: IG% - Immature Granu locytes (promyelocytes, myelocytes and metamyelocytes) > 1% indicates that a LEFT SHIFT is Present. MCV (mean corpuscular volume ) determinationOrdered By: William Gramajo on 12-07-2024 MCV (RBC) [Entitic vol] 84.7 fL Normal 81-99 [facility] Comment on above: Performed By: #### B TS, L100.0100 #### [facility] [address] [place], [address] MR/OB.VAGDELIon 12-07-2024 [facility] Medical Records Department [address] [place] [address] OB Vaginal Delivery 12/07/242023 MR#: [id number] Acct: [id number] Name: MELISSA BYRNE Rep #: [id number] : 1995 29 From: William Gramajo MD PCP: Dr. Jamari yBrne MD Status:ADM [facility] Maternal Data Information ADA Calculator Estimated Delivery [...] (5 minute): 10 Delayed Cord Clamping: Yes [employer] Recruiter spice miller: No Post Vaginal Deli Medications given after delivery: IV Pitocin Episiotomy Description: None Laceration: None Complication Complications: No 12/07/242025 Cosigner Signature (if applicable): CC: Dr. Jamari Byrne MD; Dr. William Gramajo MD Signed Normal [facility] Mean corpuscular hemoglobin (MCH) determinationOrdered By: William Gramajo on 12-07-2024 MCH (RBC) [Entitic mass] 28.5 pg Normal 27.0-32.0 [facility] Comment on above: Performed By: #### Jo KWON, L100.0100 #### [facility] [address] [place], [address] Mean corpuscular hemoglobin concentration (MCHC) determinationOrdered By: William Gramajo on 12-07-2024 MCHC (RBC) [Mass/Vol] 33.6 g/dL Normal 32-36 [facility] Comment on above: Performed By: #### Jo KWON, L100.0100 #### [facility] [address] [place], [address] Mean platelet volume determi nationOrdered By: William Gramajo on 12-07-2024 Platelet mean volume (Bld) [Entitic vol] 9.7 fL Normal 6.2-12.0 [facility] Comment on above: Performed By: #### Jo KWON, L100.0100 #### [facility] [address] [place], [address] Monocyte percentageOrdered B y: William Gramajo on 12-07-2024 Monocytes/100 WBC (Bld) 6.0 % Normal 0-10 [facility] Comment on above: Performed By: #### Jo KWON, L100.0100 #### [facility] [address] [place], [address] Neutrophil percentageOrdered By: William Gramajo on 12-07-2024 Neutrophils/100 WBC (Bld) 70.0 % Normal 47-70 [facility] Comment on above: Performed By: #### Jo KWON, L100.0100 #### [facility] [address] [place], [address] No Panel InformationOrdered By: William Gramajo on 12-07-2024 Urine Buprenorphine Qualitative Negative < 200 ng/mL [facility] Urine Oxycodone Screen Negative < 100 ng/mL [facility] Nucleated red blood cell per centageOrdered By: William Gramajo on 12-07-2024 Nucleated RBC/100 WBC (Bld) [Ratio] 0 % 0-5 [facility] Platelet countOrdered By: Nickolas mashaquille Avila on 12-07-2024 Platelets (Bld) [#/Vol] 230 10*3/uL Normal 150-450 [facility] Comment on above: Performed By: #### B SHYANN, L100.0100 #### [facility] [address] [place], [address] Quantitative urine opiates m easurementOrdered By: William Grmaajo on 12-07-2024 Opiates Ql (U) Negative < 300 ng/mL [facility] Screening urine fentanyl brigitte surementOrdered By: William Gramajo on 12-07-2024 fentaNYL Screen Ql (U) Negative [facility] Syphilis Antibodieson 2024 Syphilis Abs Non-Reactive Normal Nonreactive [facility] Comment on above: Performed By: #### L 400.0001 #### [facility] [address] [place], [address] Type AND Screenon 12-07-2024 Ab SCREEN GEL Negative Normal [facility] Comment on above: Order Comment: Labor Performed By: #### B SHYANN, L100.0100 #### [facility] [address] [place], [address] Ur Drg Scn w/Rflx AMPH Confi rmon 12-07-2024 DRUG CONFIRM Normal [facility] Comment on above: Order Comment: CLEAN CATCH Result Comment: CONF IRMATORY TESTING FOR ALL [...] TEST MNEMONIC: UTCA Performed By: #### L 400.0001 #### [facility] [address] [facility] [address] VISTA UDS PH Normal [facility] Comment on above: Order Comment: CLEAN CATCH Performed By: #### L 400.0001 #### [facility] [address] [facility] [address] Urine Drug Screen (VISTA)on 12-07-2024 BARBITIURATES Normal < 200 ng/mL [facility] Comment on above: Order Comment: CLEAN CATCH Performed By: #### L 400.0001 #### [facility] [address] [place] [id number] BENZODIAZIPINE Normal < 200 ng/mL [facility] Comment on above: Order Comment: CLEAN CATCH Performed By: #### L 400.0001 #### [facility] [address] [place] [address] BUP Ur Drug Scr Normal < 200 ng/mL [facility] Comment on above: Order Comment: CLEAN CATCH Performed By: #### L 400.0001 #### [facility] [address] [place] [address] COCAINE Normal < 300 ng/mL [facility] Comment on above: Order Comment: CLEAN CATCH Performed By: #### L 400.0001 #### [facility] [address] [place] [address] Fentanyl Normal [facility] Comment on above: Order Comment: CLEAN CATCH Performed By: #### L 400.0001 #### [facility] [address] [facility] [address] METHADONE Normal < 300 ng/mL [facility] Comment on above: Order Comment: CLEAN CATCH Performed By: #### L 400.0001 #### [facility] [address] [facility] [address] OPIATES Normal < 300 ng/mL [facility] Comment on above: Order Comment: CLEAN CATCH Performed By: #### L 400.0001 #### [facility] [address] [place], [place], [address] OXYCODONE Normal < 100 ng/mL [facility] Comment on above: Order Comment: CLEAN CATCH Performed By: #### L 400.0001 #### [facility] [address] [place] [id number] PCP Normal < 25 ng/mL [facility] Comment on above: Order Comment: CLEAN CATCH Performed By: #### L 400.0001 #### [facility] [address] [place] [id number] THC Normal < 50 ng/mL [facility] Comment on above: Order Comment: CLEAN CATCH Performed By: #### L 400.0001 #### [facility] [address] [place] [address] Urine benzodiazepine levelOr dered By: William Gramajo on 12-07-2024 Benzodiazepines Ql (U) Negative < 200 ng/mL [facility] Urine cocaine levelOrdered B y: William Gramajo on 12-07-2024 Cocaine Ql (U) Negative < 300 ng/mL [facility] Urine jprtz-2-izghqcugfvpllh abinol (THC) measurementOrdered By: William Gramajo on 12-07-2024 Cannabinoids Screen Ql (U) Negative < 50 ng/mL [facility] Urine phencyclidine (PCP) de tectionOrdered By: William Gramajo on 12-07-2024 Phencyclidine Ql (U) Negative < 25 ng/mL [facility] White blood cell (WBC) count Ordered By: William Gramajo on 12-07-2024 WBC (Bld) [#/Vol] 9.0 10*3/uL Normal 4.4-11.0 [facility] Comment on above: Performed By: #### B TS, L100.0100 #### [facility] [address] [place] [id number] CNPNon 12-06-2024 CNPN Normal [facility] Biophysical profile.tammy dy movement USon 12-06-2024 [facility] Radiology Study observation (narrative) [facility] URINE OB DIP B/Oon 5 Glucose Ql (U) 100 mg/dL Neg [facility] Interpretation and review of laboratory results Normal [facility] Protein.monoclonal (U) [Mass/Vol] Negative Neg mg/dL [facility] CNPNon 12-01-2024 CNPN Normal [facility] Biophysical profile.tammy dy movement USon 11-30-2024 [facility] Radiology Study observation (narrative) [facility] CNPNon 11-25-2024 CNPN Normal [facility] URINE OB DIP B/Oon 5 Glucose Ql (U) Negative Neg mg/dL [facility] Interpretation and review of laboratory results Normal [facility] Protein.monoclonal (U) [Mass/Vol] Negative Neg mg/dL [facility] Biophysical profile.tammy dy movement USon 11-22-2024 [facility] Radiology Study observation (narrative) [facility] OB Triage Physician Noteon 0 11-19-2024 OB Triage Physician Note [facility] Medical Records Department [address] [place] [address] OB Triage Physician Note 11/19/24 0712 MR#: [id number] Acct: [id number] Name: MELISSA BYRNE Rep #: [id number] : 1995 29 From: Whit Patel MD PCP: Dr. Jamari Byrne MD Status:DEP CLI Y Location: [facility] HPI - General General Date of [...] MD; Dr. Jamari Byrne MD Signed Normal [facility] BACTERIAL VAGINOSIS NAATon 0 11-18-2024 Lactobacillus crispatus+gasseri+dez senii + Gardnerella vaginalis + Atopobium vaginae rRNA SUMIT+probe Ql (Vag fld) Not detected Normal Not detected [facility] Comment on above: Order Comment: Speci men Type: SWABOrdering Facility: [facility] Address: [address] [place] [address] Performed By: #### B VAMP, CVTV ####[facility] LABIA [id number] [address] [place] JOSUÉ/TRICHOMONAS NAATon 0 11-18-2024 C. glabrata RNA SUMIT+probe Ql (Vag fld) Not detected Normal Not detected [facility] Comment on above: Order Comment: Speci men Type: SWABOrdering Facility: [facility] Address: [address] [place] [address] Performed By: #### B VAMP, CVTV ####[facility] LABCLIA [id number] [place] [address] [place] Josué sp DNA SUMIT+probe Ql (Vag fld) Not detected Normal Not detected [facility] Comment on above: Order Comment: Speci men Type: SWABOrdering Facility: [facility] Address: [address] [place] [address] Result Comment: The Josué species group target includes C. albicans, C. tropicalis, C. parapsilosis, and C. dubliniensis. Performed By: #### B VAMP, CVTV ####[facility] LABCLIA [id number] [address] [place] T. vaginalis DNA SUMIT+probe Ql (Unsp spec) Not detected Normal Not detected [facility] Comment on above: Order Comment: Speci men Type: SWABOrdering Facility: [facility] Address: [address] [place] [address] Performed By: #### B VAMP, CVTV ####[facility] LABCLIA [id number] [place] [address] [place] Urine Cultureon 11-17-2024 [facility] Comments: urine in l ab Mixed Gram Positive Organisms [place] Count 11,000-25,000 [facility] Mixed contaminants. Submit a new specimen if indicated. Normal [facility] Comment on above: Performed By: #### M 100.2200 ####[facility] [address] [place], [address] CNPNon 11-16-2024 CNPN Normal [facility] Amorphous sediment detection in urine sediment by light microscopyOrdered By: Whit Patel on 11-15-2024 Amorphous sediment LM Ql (Urine sed) 1+ [facility] Bilirubin Test strip Ql (U)O rdered By: Whit Patel on 11-15-2024 Bilirubin Ql (U) Negative Negative [facility] Calcium oxalate crystals det ection in urine sediment by light microscopyOrdered By: Whit Patel on 11-15-2024 Calcium oxalate crystals LM Ql (Urine sed) 2+ /hpf [facility] Biophysical profile.tammy dy movement USon 11-15-2024 [facility] Radiology Study observation (narrative) [facility] Ketones Test strip Ql (U)Ord ered By: Whit Patel on 11-15-2024 Ketones Ql (U) 5 mg/dl High Negative [facility] Microscopic analysis of urin e for red blood cells (RBC)Ordered By: Whit Patel on 11-15-2024 Microscopic analysis of urine for red blood cells (RBC) 0-5 SEEN /hpf 0-5 [facility] Mucus LM Ql (Urine sed)Order ed By: Whit Patel on 11-15-2024 Mucus Ql (Urine sed) 0 SEEN /hpf [facility] Nitrite Test strip Ql (U)Ord ered By: Whit Patel on 11-15-2024 Nitrite Ql (U) Negative Negative [facility] Protein Test strip Ql (U)Ord ered By: Whit Patel on 11-15-2024 Protein Ql (U) 15 mg/dl High Negative [facility] Squamous epithelial cells de tection in urine sediment by light microscopyOrdered By: Whit Patel on 11-15-2024 Epithelial cells.squamous LM Ql (Urine sed) 5-10 SEEN /hpf 5-10 [facility] URINE OB DIP B/Oon Glucose Ql (U) Negative Neg mg/dL [facility] Interpretation and review of laboratory results Normal [facility] Protein.monoclonal (U) [Mass/Vol] Negative Neg mg/dL [facility] Urinalysis, Completeon 11-15 AMORPHOUS 1+ Normal [facility] Comment on above: Order Comment: CLEAN CATCH Performed By: #### L 400.0001 #### [facility] [address] [place], [place], [address] BACTERIA 2+ /hpf Normal None Seen [facility] Comment on above: Order Comment: CLEAN CATCH Performed By: #### L 400.0001 #### [facility] [address] [place], [place], [address] CA OX CRYSTAL 2+ /hpf Normal [facility] Comment on above: Order Comment: CLEAN CATCH Performed By: #### L 400.0001 #### [facility] [address] [place], [address] EPI,SQUAMOUS 5-10 SEEN Normal 5-10 [facility] Comment on above: Order Comment: CLEAN CATCH Performed By: #### L 400.0001 #### [facility] [address] [place], [address] RBC 0-5 SEEN Normal 0-5 [facility] Comment on above: Order Comment: CLEAN CATCH Performed By: #### L 400.0001 #### [facility] [address] [place], [address] WBC 0-5 SEEN Normal 0-5 [facility] Comment on above: Order Comment: CLEAN CATCH Performed By: #### L 400.0001 #### [facility] [address] [place], [address] Mucus Ql (Urine sed) 0 SEEN Normal [facility] Comment on above: Order Comment: CLEAN CATCH Performed By: #### L 400.0001 #### [facility] [address] [place], [address] Urine clarityOrdered By: Solomon on 11-15-2024 Clarity (U) Clear Clear [facility] Urine color determinationOrd ered By: Whit Patel on 11-15-2024 Color (U) Yellow Yellow [facility] Urine cultureOrdered By: Solomon on 11-15-2024 Bacteria identified Cx Nom (U) Positive Abnormal [facility] Urine glucose detectionOrder ed By: Whit Patel on 11-15-2024 Glucose Ql (U) 1000 mg/dl High Normal [facility] Urine leukocyte esterase det ection by dipstickOrdered By: Whit Schulte on 11-15-2024 Leukocyte esterase Test strip Ql (U) Negative Negative [facility] Urine pHOrdered By: Whit Collado on 11-15-2024 pH (U) 6.0 [pH] 5.0 - 8.0 [facility] Urine sediment bacteria coun t by microscopy (number/high power field)Ordered By: Whit Patel on 11-15-2024 Bacteria LM.HPF (Urine sed) [#/Area] 2 /[HPF] None Seen [facility] Urine specific gravity measu rementOrdered By: Whit Patel on 11-15-2024 Specific gravity (U) [Rel density] 1.030 1.002-1.030 [facility] Urine urobilinogen measureme ntOrdered By: Whit Patel on 11-15-2024 Urobilinogen Ql (U) 1 mg/dl High Normal [facility] White blood cell countOrdere d By: Whit Patel on 11-15-2024 White blood cell count 0-5 SEEN /hpf 0-5 [facility] URINE OB DIP B/Oon Glucose Ql (U) Negative Neg mg/dL [facility] Protein.monoclonal (U) [Mass/Vol] Negative Neg mg/dL [facility] Biophysical profile.tammy dy movement USon 11-08-2024 [facility] Radiology Study observation (narrative) [facility] BILE ACIDS FRACT BLDon 11-05 CHENODEOXYCHOLIC ACID 0.8 umol/L Normal 0.0-3.4 [facility] Comment on above: Order Comment: Speci men Type: BLOOD SPECIMENOrdering Facility: [facility] Address: [address] [place] [address] Performed By: #### B ILE ####[facility] [id number] [place] [address] CHOLIC ACID 0.8 umol/L Normal 0.0-1.9 [facility] Comment on above: Order Comment: Speci men Type: BLOOD SPECIMENOrdering Facility: [facility] Address: [address] [place] [address] Performed By: #### B ILE ####[facility] LABORATORIESCLIA [id number] [place] [address] DEOXYCHOLIC ACID 1.8 umol/L Normal 0.0-2.5 [facility] Comment on above: Order Comment: Speci men Type: BLOOD SPECIMENOrdering Facility: [facility] Address: [address] [place] [address] Performed By: #### B ILE ####[facility] LABORATORIESCLIA [id number] [place] [address] TOTAL BILE ACIDS 3.7 umol/L Normal 0.0-7.0 [facility] Comment on above: Order Comment: Speci men Type: BLOOD SPECIMENOrdering Facility: [facility] Address: [address] [place] [address] Result Comment: INTE RPRETIVE INFORMATION: Bile Acids, Fractionated and TotalThis test was developed and its performance characteristicsdetermined by [employer]. It has not been cleared orapproved by the [place] Food and Drug Administration. This test wasperformed in a CLIA certified laboratory and is intended forclinical purposes.Performed By: [facility] [place], [place] [address]Jpdnftgcje Director: Cristofer Voss MD, PhDCLIA Number: [id number] Performed By: #### B ILE ####[facility] LABORATORIESCLIA [id number] [place] [address] URSODEOXYCHOLIC ACID 0.3 umol/L Normal 0.0-1.0 [facility] Comment on above: Order Comment: Speci men Type: BLOOD SPECIMENOrdering Facility: [facility] Address: [address] [id number] Performed By: #### B ILE ####[facility] LABORATORIESCLIA [id number] [place] [address] BILE ACIDS, TOTALon 11-06-19 25 Bile acid [Moles/Vol] 6.0 umol/L Normal <7.5 [facility] Comment on above: Order Comment: Speci men Type: BLOOD SPECIMENOrdering Facility: [facility] Address: [address] [id number] Result Comment: Refe rence interval applies to [...] Performed By: #### B FREDERICK ####[facility] LABCLIA [id number] [place] [id number] [place] [facility] Comprehensive metabolic 2000 panelOrdered By: Jayne Brunner on 11-05-2024 Albumin [Mass/Vol] 3.6 g/dL Low 3.9 - 4.9 g/dL [facility] ALP [Catalytic activity/Vol] 83 U/L 34 - 123 U/L [facility] ALT [Catalytic activity/Vol] 10 U/L 7 - 38 U/L [facility] Anion gap [Moles/Vol] 11 mmol/L 8 - 15 mmol/L [facility] AST [Catalytic activity/Vol] 9 U/L Low 13 - 35 U/L [facility] Bilirubin [Mass/Vol] 0.3 mg/dL 0.2 - 1 .3 mg/dL [facility] Calcium [Mass/Vol] 9 mg/dL 8.5 - 10. 2 mg/dL [facility] Chloride [Moles/Vol] 103 mmol/L 98 - 10 7 mmol/L [facility] CO2 [Moles/Vol] 21 mmol/L Low 22 - 30 mmol/L [facility] Creatinine [Mass/Vol] 0.42 mg/dL Low 0.58 - 0.96 mg/dL [facility] GFR/1.73 sq M.predicted among non-blacks MDRD (S/P/Bld) [Vol rate/Area] 136 mL/min/{1.73_m2} - PINF [facility] Comment on above: Estimated Glomerular Filtration Rate [...] 115 mg/dL High 74 - 99 mg/dL [facility] Comment on above: The [place] Diabete s Association (ADA) provides guidance for [...] Standards of Medical Care in Diabetes 2016, [place] Diabetes Association. Diabetes Care. 2016.39(Suppl 1). Interpretation and review of laboratory results Abnormal [facility] Potassium [Moles/Vol] 3.8 mmol/L 3.7 - 5.1 mmol/L [facility] Protein [Mass/Vol] 6.9 g/dL 6.3 - 8.0 g/dL [facility] Sodium [Moles/Vol] 135 mmol/L Low 136 - 144 mmol/L [facility] Urea nitrogen [Mass/Vol] 7 mg/dL 7 - 21 mg/dL [facility] Comprehensive metabolic 2000 panelon 11-05-2024 Albumin [Mass/Vol] 3.6 g/dL Low 3.9-4.9 [facility] Comment on above: Order Comment: Speci men Type: BLOOD SPECIMENOrdering Facility: [facility] Address: [address] [place] [address] Performed By: #### 2 4323-8 ####[facility] HAROLDOINTEGRIS SOUTHWE[facility] – OKLAHOMA CITYLIA [id number] [place] [address] [place] ALP [Catalytic activity/Vol] 83 U/L Normal 34-123 [facility] Comment on above: Order Comment: Speci men Type: BLOOD SPECIMENOrdering Facility: [facility] Address: [address] [place] [address] Performed By: #### 2 4323-8 ####[facility] HOSPITALLIA [id number] [place] [address] [place] ALT [Catalytic activity/Vol] 10 U/L Normal 7-38 [facility] Comment on above: Order Comment: Speci men Type: BLOOD SPECIMENOrdering Facility: [facility] Address: [address] [place] [address] Performed By: #### 2 4323-8 ####[facility] HOSPITALLIA [id number] [place] [address] [place] Anion gap [Moles/Vol] 11 mmol/L Normal 8-15 [facility] Comment on above: Order Comment: Speci men Type: BLOOD SPECIMENOrdering Facility: [facility] Address: [address] [place] [address] Performed By: #### 2 4323-8 ####[facility] ERNCLIA [id number] [place] [address] [place] AST [Catalytic activity/Vol] 9 U/L Low 13-35 [facility] Comment on above: Order Comment: Speci men Type: BLOOD SPECIMENOrdering Facility: [facility] Address: [address] [place] [address] Performed By: #### 2 4323-8 ####[facility] HAROLDO MILLTOWNCLIA [id number] [place] [address] [place] Bilirubin [Mass/Vol] 0.3 mg/dL Normal 0.2-1.3 [facility] Comment on above: Order Comment: Speci men Type: BLOOD SPECIMENOrdering Facility: [facility] Address: [address] [place] [address] Performed By: #### 2 4323-8 ####[facility] MILLRYANNEWKLAUSLIA [id number] [place] [address] [place] Calcium [Mass/Vol] 9.0 mg/dL Normal 8.5-10.2 [facility] Comment on above: Order Comment: Speci men Type: BLOOD SPECIMENOrdering Facility: [facility] Address: [address] [place] [address] Performed By: #### 2 4323-8 ####[facility] MILLTOWNCLIA [id number] [place] [address] [place] Chloride [Moles/Vol] 103 mmol/L Normal 98-107 [facility] Comment on above: Order Comment: Speci men Type: BLOOD SPECIMENOrdering Facility: [facility] Address: [address] [place] [address] Performed By: #### 2 4323-8 ####[facility] HAROLDO MILLTOWNCLIA [id number] [place] [address] [place] CO2 [Moles/Vol] 21 mmol/L Low 22-30 [facility] Comment on above: Order Comment: Speci men Type: BLOOD SPECIMENOrdering Facility: [facility] Address: [address] [place] [address] Performed By: #### 2 4323-8 ####[facility] [id number] [place] [address] [place] Creatinine [Mass/Vol] 0.42 mg/dL Low 0.58-0.96 [facility] Comment on above: Order Comment: Gume escobedo Type: BLOOD SPECIMENOrdering Facility: [facility] Address: [address] [place] [address] Performed By: #### 2 4323-8 ####[facility] [id number] [place] [address] [place] Creatinine and Glomerular filtration rate.predicted panel (S/P/Bld) 136 mL/min/1.73m??? Normal >=60 [facility] Comment on above: Order Comment: Gume escobedo Type: BLOOD SPECIMENOrdering Facility: [facility] Address: [address] [place] [address] Result Comment: Ascencion mated Glomerular Filtration Rate [...] actual GFR. Performed By: #### 2 4323-8 ####[facility] [id number] [place] [address] [place] Glucose [Mass/Vol] 115 mg/dL High 74-99 [facility] Comment on above: Order Comment: Gume escobedo Type: BLOOD SPECIMENOrdering Facility: [facility] Address: [address] [place] [address] Result Comment: The [place] Diabetes Association (ADA) provides guidance for cutoff [...] Standards of Medical Care in Diabetes 2016, [place] Diabetes Association. Diabetes Care. 2016.39(Suppl 1). Performed By: #### 2 4323-8 ####[facility] ERNCLIA [id number] [place] [address] [place] Potassium [Moles/Vol] 3.8 mmol/L Normal 3.7-5.1 [facility] Comment on above: Order Comment: Speci men Type: BLOOD SPECIMENOrdering Facility: [facility] Address: [address] [place] [address] Performed By: #### 2 4323-8 ####[facility] ERNCMOUNTAINSTAR HEALTHCARE [id number] [place] [address] [place] Protein [Mass/Vol] 6.9 g/dL Normal 6.3-8.0 [facility] Comment on above: Order Comment: Speci men Type: BLOOD SPECIMENOrdering Facility: [facility] Address: [address] [place], [place] [id number] Performed By: #### 2 4323-8 ####[facility] [id number] [place] [address] [place] Sodium [Moles/Vol] 135 mmol/L Low 136-144 [facility] Comment on above: Order Comment: Speci men Type: BLOOD SPECIMENOrdering Facility: [facility] Address: [address] [place] [address] Performed By: #### 2 4323-8 ####[facility] HOSPITALLI [id number] [place] [address] [place] Urea nitrogen [Mass/Vol] 7 mg/dL Normal 7-21 [facility] Comment on above: Order Comment: Speci men Type: BLOOD SPECIMENOrdering Facility: [facility] Address: [address] [place] [address] Performed By: #### 2 4323-8 ####[facility] HAROLDO [facility] HOSPITALRaymond [id number] [place] [address] [place] URINE OB DIP B/Oon 5 Glucose Ql (U) 250 mg/dL Neg [facility] Interpretation and review of laboratory results Normal [facility] Protein.monoclonal (U) [Mass/Vol] Negative Neg mg/dL [facility] CNCNPATEDon 11-04-2024 CNCNPATED Normal [facility] CNOVon 11-04-2024 CNOV Normal [facility] CNPNon 11-02-2024 CNPN Normal [facility] Examination level ultrasound on 11-02-2024 [facility] Radiology Study observation (narrative) [facility] URINE OB DIP B/Oon 5 Glucose Ql (U) 1000 mg/dL Neg [facility] Interpretation and review of laboratory results Abnormal [facility] Protein.monoclonal (U) [Mass/Vol] Negative Neg mg/dL [facility] CNPNon 10-29-2024 CNPN Normal [facility] CNPNon 10-27-2024 CNPN Normal [facility] CBC panel Auto (Bld)on 10-25 Erythrocyte distribution width (RBC) [Ratio] 12.9 % 11.5 - 15.0 % [facility] Hematocrit (Bld) [Volume fraction] 36 % 36.0 - 46.0 % [facility] Hemoglobin (Bld) [Mass/Vol] 12.4 g/dL 11.5 - 15.5 g/dL [facility] Interpretation and review of laboratory results Normal [facility] MCH (RBC) [Entitic mass] 29.5 pg 26.0 - 34.0 pg [facility] MCHC (RBC) [Mass/Vol] 34.4 g/dL 30.5 - 36.0 g/dL [facility] MCV (RBC) [Entitic vol] 85.5 fL 80.0 - 100.0 fL [facility] Nucleated RBC (Bld) [#/Vol] NINF [facility] Platelet mean volume (Bld) [Entitic vol] 9.6 fL 9.0 - 12.7 fL [facility] Platelets (Bld) [#/Vol] 274 10*3/uL [facility] RBC (Bld) [#/Vol] 4.21 10*6/uL 3.90 - 5.2 0 m/uL [facility] WBC (Bld) [#/Vol] 8.6 10*3/uL [facility] Erythrocyte distribution width (RBC) [Ratio] 12.9 % Normal 11.5-15.0 [facility] Comment on above: Order Comment: Speci men Type: BLOOD SPECIMENOrdering Facility: [facility] Address: [address] [place], [place] [id number] Performed By: #### 5 8410-2 ####[facility] ERKLAUSRaymond [id number] [place] [address] [place] Hematocrit (Bld) [Volume fraction] 36.0 % Normal 36.0-46.0 [facility] Comment on above: Order Comment: Speci men Type: BLOOD SPECIMENOrdering Facility: [facility] Address: [address] [place] [address] Performed By: #### 5 8410-2 ####[facility] [id number] [address] [place] Hemoglobin (Bld) [Mass/Vol] 12.4 g/dL Normal 11.5-15.5 [facility] Comment on above: Order Comment: Speci men Type: BLOOD SPECIMENOrdering Facility: [facility] Address: [address] [place] [address] Performed By: #### 5 8410-2 ####[facility] [id number] [place] [address] [place] MCH (RBC) [Entitic mass] 29.5 pg Normal 26.0-34.0 [facility] Comment on above: Order Comment: Speci men Type: BLOOD SPECIMENOrdering Facility: [facility] Address: [address] [place] [address] Performed By: #### 5 8410-2 ####[facility] MILLTOWNCLIA [id number] [place] [address] [place] MCHC (RBC) [Mass/Vol] 34.4 g/dL Normal 30.5-36.0 [facility] Comment on above: Order Comment: Speci men Type: BLOOD SPECIMENOrdering Facility: [facility] Address: [address] [place] [address] Performed By: #### 5 8410-2 ####[facility] MILLHAWK SPRINGSNCLIA [id number] [place] [address] [place] MCV (RBC) [Entitic vol] 85.5 fL Normal 80.0-100.0 [facility] Comment on above: Order Comment: Speci men Type: BLOOD SPECIMENOrdering Facility: [facility] Address: [address] [place] [address] Performed By: #### 5 8410-2 ####[facility] ERNCLIA [id number] [place] [address] [place] Nucleated RBC (Bld) [#/Vol] 10*3/uL Normal <0.01 [facility] Comment on above: Order Comment: Speci men Type: BLOOD SPECIMENOrdering Facility: [facility] Address: [address] [place] [address] Performed By: #### 5 8410-2 ####[facility] ERNCLIA [id number] [place] [address] [place] Platelet mean volume (Bld) [Entitic vol] 9.6 fL Normal 9.0-12.7 [facility] Comment on above: Order Comment: Speci men Type: BLOOD SPECIMENOrdering Facility: [facility] Address: [address] [place] [address] Performed By: #### 5 8410-2 ####[facility] ERKLAUSLIA [id number] [place] [address] [place] Platelets (Bld) [#/Vol] 274 10*3/uL Normal 150-400 [facility] Comment on above: Order Comment: Speci men Type: BLOOD SPECIMENOrdering Facility: [facility] Address: [address] [place] [address] Performed By: #### 5 8410-2 ####[facility] ERNCMOUNTAINSTAR HEALTHCARE [id number] [place] [address] [place] RBC (Bld) [#/Vol] 4.21 10*6/uL Normal 3.90-5.20 [facility] Comment on above: Order Comment: Speci men Type: BLOOD SPECIMENOrdering Facility: [facility] Address: [address] [place] [address] Performed By: #### 5 8410-2 ####[facility]OSPITALLIA [id number] [place] [address] [place] WBC (Bld) [#/Vol] 8.60 10*3/uL Normal 3.70-11.00 [facility] Comment on above: Order Comment: Speci men Type: BLOOD SPECIMENOrdering Facility: [facility] Address: [address] [place] [address] Performed By: #### 5 8410-2 ####[facility] ERNCLIA [id number] [place] [address] [place] Comprehensive metabolic 2000 panelOrdered By: Aquiles Denny on 10-25-2024 Albumin [Mass/Vol] 3.6 g/dL Low 3.9 - 4.9 g/dL [facility] ALP [Catalytic activity/Vol] 82 U/L 34 - 123 U/L [facility] ALT [Catalytic activity/Vol] 11 U/L 7 - 38 U/L [facility] Anion gap [Moles/Vol] 14 mmol/L 8 - 15 mmol/L [facility] AST [Catalytic activity/Vol] 9 U/L Low 13 - 35 U/L [facility] Bilirubin [Mass/Vol] 0.2 mg/dL 0.2 - 1 .3 mg/dL [facility] Calcium [Mass/Vol] 9.3 mg/dL 8.5 - 10. 2 mg/dL [facility] Chloride [Moles/Vol] 104 mmol/L 98 - 10 7 mmol/L [facility] CO2 [Moles/Vol] 18 mmol/L Low 22 - 30 mmol/L [facility] Creatinine [Mass/Vol] 0.39 mg/dL Low 0.58 - 0.96 mg/dL [facility] GFR/1.73 sq M.predicted among non-blacks MDRD (S/P/Bld) [Vol rate/Area] 138 mL/min/{1.73_m2} - PINF [facility] Comment on above: Estimated Glomerular Filtration Rate [...] 103 mg/dL High 74 - 99 mg/dL [facility] Comment on above: The [place] Diabete s Association (ADA) provides guidance for [...] Standards of Medical Care in Diabetes 2016, [place] Diabetes Association. Diabetes Care. 2016.39(Suppl 1). Interpretation and review of laboratory results Abnormal [facility] Potassium [Moles/Vol] 3.9 mmol/L 3.7 - 5.1 mmol/L [facility] Protein [Mass/Vol] 7 g/dL 6.3 - 8.0 g/dL [facility] Sodium [Moles/Vol] 136 mmol/L 136 - 144 mmol/L [facility] Urea nitrogen [Mass/Vol] 5 mg/dL Low 7 - 21 mg/dL [facility] Comprehensive metabolic 2000 panelon 10-25-2024 Albumin [Mass/Vol] 3.6 g/dL Low 3.9-4.9 [facility] Comment on above: Order Comment: Speci men Type: BLOOD SPECIMENOrdering Facility: [facility] Address: [address] [place] [address] Performed By: #### 2 4323-8 ####[facility] HAROLDO MILLTOWNCLIA [id number] [place] [address] [place] ALP [Catalytic activity/Vol] 82 U/L Normal 34-123 [facility] Comment on above: Order Comment: Speci men Type: BLOOD SPECIMENOrdering Facility: [facility] Address: [address] [place] [address] Performed By: #### 2 4323-8 ####[facility] ERNCLIA [id number] [place] [address] [place] ALT [Catalytic activity/Vol] 11 U/L Normal 7-38 [facility] Comment on above: Order Comment: Speci men Type: BLOOD SPECIMENOrdering Facility: [facility] Address: [address] [place] [address] Performed By: #### 2 4323-8 ####[facility] MILLTOWNCLIA [id number] [place] [address] [place] Anion gap [Moles/Vol] 14 mmol/L Normal 8-15 [facility] Comment on above: Order Comment: Speci men Type: BLOOD SPECIMENOrdering Facility: [facility] Address: [address] [place] [address] Performed By: #### 2 4323-8 ####[facility] MILLTOWNCLIA [id number] [place] [address] [place] AST [Catalytic activity/Vol] 9 U/L Low 13-35 [facility] Comment on above: Order Comment: Speci men Type: BLOOD SPECIMENOrdering Facility: [facility] Address: [address] [place] [address] Performed By: #### 2 4323-8 ####[facility]ITALWNCMOUNTAINSTAR [facility]ALTH[facility] [id number] [place] [address] [place] Bilirubin [Mass/Vol] 0.2 mg/dL Normal 0.2-1.3 [facility] Comment on above: Order Comment: Speci men Type: BLOOD SPECIMENOrdering Facility: [facility] Address: [address] [place] [address] Performed By: #### 2 4323-8 ####[facility] ERNCMOUNTAINSTAR HEALTHCARE [id number] [place] [address] [place] Calcium [Mass/Vol] 9.3 mg/dL Normal 8.5-10.2 [facility] Comment on above: Order Comment: Speci men Type: BLOOD SPECIMENOrdering Facility: [facility] Address: [address] [place] [address] Performed By: #### 2 4323-8 ####[facility] ERNCLI [id number] [place] [address] [place] Chloride [Moles/Vol] 104 mmol/L Normal 98-107 [facility] Comment on above: Order Comment: Speci men Type: BLOOD SPECIMENOrdering Facility: [facility] Address: [address] [place] [address] Performed By: #### 2 4323-8 ####[facility] ERNCLI [id number] [place] [address] [place] CO2 [Moles/Vol] 18 mmol/L Low 22-30 [facility] Comment on above: Order Comment: Speci men Type: BLOOD SPECIMENOrdering Facility: [facility] Address: [address] [place] [address] Performed By: #### 2 4323-8 ####[facility] ERNCMOUNTAINSTAR HEALTHCARE [id number] [place] [address] [place] Creatinine [Mass/Vol] 0.39 mg/dL Low 0.58-0.96 [facility] Comment on above: Order Comment: Speci men Type: BLOOD SPECIMENOrdering Facility: [facility] Address: [address] [place] [address] Performed By: #### 2 4323-8 ####[facility] ERNCLI [id number] [place] [address] [place] Creatinine and Glomerular filtration rate.predicted panel (S/P/Bld) 138 mL/min/1.73m??? Normal >=60 [facility] Comment on above: Order Comment: Milanai men Type: BLOOD SPECIMENOrdering Facility: [facility] Address: [address] [place] [address] Result Comment: Ascencion mated Glomerular Filtration Rate [...] GFR. Performed By: #### 2 4323-8 ####[facility] ERNCLIA [id number] [place] [address] [place] Glucose [Mass/Vol] 103 mg/dL High 74-99 [facility] Comment on above: Order Comment: Speci men Type: BLOOD SPECIMENOrdering Facility: [facility] Address: [address] [place] [address] Result Comment: The [place] Diabetes Association (ADA) provides guidance for cutoff [...] Standards of Medical Care in Diabetes 2016, [place] Diabetes Association. Diabetes Care. 2016.39(Suppl 1). Performed By: #### 2 4323-8 ####[facility] HAROLDO MILLTOWNCLIA [id number] [place] [address] [place] Potassium [Moles/Vol] 3.9 mmol/L Normal 3.7-5.1 [facility] Comment on above: Order Comment: Speci men Type: BLOOD SPECIMENOrdering Facility: [facility] Address: [address] [place] [address] Performed By: #### 2 4323-8 ####[facility] MILLTOWNCLIA [id number] [place] [address] [place] Protein [Mass/Vol] 7.0 g/dL Normal 6.3-8.0 [facility] Comment on above: Order Comment: Milanai men Type: BLOOD SPECIMENOrdering Facility: [facility] Address: [address] [place] [address] Performed By: #### 2 4323-8 ####[facility] HOSPITALWNCLIA [id number] [place] [address] [place] Sodium [Moles/Vol] 136 mmol/L Normal 136-144 [facility] Comment on above: Order Comment: Speci men Type: BLOOD SPECIMENOrdering Facility: [facility] Address: [address] [place] [address] Performed By: #### 2 4323-8 ####[facility] MILLWNCLIA [id number] [place] [address] [place] Urea nitrogen [Mass/Vol] 5 mg/dL Low 7-21 [facility] Comment on above: Order Comment: Gume escobedo Type: BLOOD SPECIMENOrdering Facility: [facility] Address: [address] [place] [address] Performed By: #### 2 4323-8 ####[facility] HAROLDO [facility] [id number] [place] [address] [place] WEY68kg 10-25-2024 ECG01 Normal [facility] PARVOVIRUS B19 IGG+Mon 10-25 PARVO B19 IGG, QUAL Positive Abnormal Negative [facility] Comment on above: Order Comment: Gume escobedo Type: BLOOD SPECIMENOrdering Facility: [facility] Address: [address] [place] [address] Result Comment: Parv ovirus B19 virus IgG [...] Performed By: #### P ARV ####[facility] LABCLIA [id number] [address] [place] PARVO B19 IGM, QUAL Negative Normal Negative [facility] Comment on above: Order Comment: Gume escobedo Type: BLOOD SPECIMENOrdering Facility: [facility] Address: [address] [place] [address] Result Comment: Parv ovirus B19 virus IgM [...] Performed By: #### P ARV ####[facility] LABCLIA [id number] [place] [id number] [place] [facility] URINE OB DIP B/OOrdered By: Renetta Petersen on 10-25-2024 Glucose Ql (U) Negative Neg mg/dL [facility] Protein.monoclonal (U) [Mass/Vol] Negative Neg mg/dL [facility] Urine Cultureon 10-20-2024 [facility] Urine Culture #1 Below infection level. Streptococcus agalactiae (B) [place] Count <1000 Mixed Gram Positive Organisms Mixed Gram Positive Organisms MIXC Mixed contaminants. Submit a new specimen if indicated. Streptococcus agalactiae (B): REACTION Ampicillin Islt STEF <=0.25 cefTRIAXone Islt STEF <=0.12 S Clindamycin.induced Susc Islt Linezolid Islt STEF <=2 S Vancomycin Islt STEF 0.5 S Normal [facility] Comment on above: Performed By: #### M 100.2200 ####[facility] [id number] [place], [place], [id number] CNPNon 10-19-2024 CNPN Normal [facility] URINE OB DIP B/Oon Glucose Ql (U) Negative Neg mg/dL [facility] Interpretation and review of laboratory results Normal [facility] Protein.monoclonal (U) [Mass/Vol] Negative Neg mg/dL [facility] Bedside Glucoseon 10-16-2024 FING[place] GLU 106 mg/dL Normal 74-106 [facility] Comment on above: Result Comment: ELLEN ROSAURAENT OF PATIENT CARE PER NURSING PROTOCOL Performed By: #### B TS, L100.0100 #### [facility] [address] [place], [place], [id number] Bilirubin Test strip Ql (U)O rdered By: Mariajose Nickerson on 10-16-2024 Bilirubin Ql (U) Negative Negative [facility] Glucose measurement at bedsi deOrdered By: Mariajose Nickerson on 10-16-2024 Glucose [Mass/Vol] 106 mg/dL 74-106 [facility] Comment on above: MANAGEMENT OF PATIEN T CARE PER NURSING PROTOCOL Ketones Test strip Ql (U)Ord ered By: Mariajose Nickerson on 10-16-2024 Ketones Ql (U) Negative Negative [facility] Microscopic analysis of urin e for red blood cells (RBC)Ordered By: Mariajose Nickerson on 10-16-2024 Microscopic analysis of urine for red blood cells (RBC) 0 SEEN /hpf 0-5 [facility] Mucus LM Ql (Urine sed)Order ed By: Mariajose Nickerson on 10-16-2024 Mucus Ql (Urine sed) 0 SEEN /hpf [facility] Nitrite Test strip Ql (U)Ord ered By: Mariajose Nickerson on 10-16-2024 Nitrite Ql (U) Negative Negative [facility] OB Triage Physician Noteon 0 10-16-2024 OB Triage Physician Note [facility] Medical Records Department [address] [place] [address] OB Triage Physician Note 10/16/24 1838 MR#: [id number] Acct: [id number] Name: MELISSA BYRNE Rep #: [id number] : 1995 29 From: Mariajose Nickerson CN PCP: Dr. Jamari Byrne MD Status:REG CLI Y Location: [place] [address] HPI - General HPI Narrative MELISSA BYRNE, [...] with plan of care 10/16/242000 Date Mariajose Najeraigner Signature (if applicable): Date CC: CNM Mariajose Nickerson; Dr. Jamari Byrne MD Signed Normal [facility] Protein Test strip Ql (U)Ord ered By: Mariajose Nickerson on 10-16-2024 Protein Ql (U) 30 mg/dl High Negative [facility] Squamous epithelial cells de tection in urine sediment by light microscopyOrdered By: Mariajose Nickerson on 10-16-2024 Epithelial cells.squamous LM Ql (Urine sed) 5-10 SEEN /hpf - [facility] Urinalysis, Completeon 10-16 EPI,SQUAMOUS 5-10 SEEN Normal 10-16 [facility] Comment on above: Order Comment: CLEAN CATCH Performed By: #### B TS, L100.0100 #### [facility] [address] [place], [address] BACTERIA 0 SEEN Normal None Seen [facility] Comment on above: Order Comment: CLEAN CATCH Performed By: #### Jo TS, L100.0100 #### [facility] [address] [place], [address] Mucus Ql (Urine sed) 0 SEEN Normal [facility] Comment on above: Order Comment: CLEAN CATCH Performed By: #### Jo TS, L100.0100 #### [facility] [address] [place], [address] RBC 0 SEEN Normal 0-5 [facility] Comment on above: Order Comment: CLEAN CATCH Performed By: #### Jo TS, L100.0100 #### [facility] [address] [place], [address] WBC 0 SEEN Normal 0-5 [facility] Comment on above: Order Comment: CLEAN CATCH Performed By: #### B , L100.0100 #### [facility] [address] [place], [place], [id number] Urine clarityOrdered By: Yoli Nickerson on 10-16-2024 Clarity (U) Sl. Cloudy Clear [facility] Urine color determinationOrd ered By: Mariajose Nickerson on 10-16-2024 Color (U) Yellow Yellow [facility] Urine cultureOrdered By: Liezt Julian on 10-16-2024 Bacteria identified Cx Nom (U) Streptococcus agalactiae (B) Abnormal [facility] Bacteria identified Cx Nom (U) Positive Abnormal [facility] Urine glucose detectionOrder ed By: Mariajose Nickerson on 10-16-2024 Glucose Ql (U) 50 mg/dl High Normal [facility] Urine leukocyte esterase det ection by dipstickOrdered By: Mariajose Nickerson on 10-16-2024 Leukocyte esterase Test strip Ql (U) 25 /ul High Negative [facility] Urine pHOrdered By: Mariajose Nickerson on 10-16-2024 pH (U) 6.0 [pH] 5.0 - 8.0 [facility] Urine sediment bacteria coun t by microscopy (number/high power field)Ordered By: Mariajose Nickerson on 10-16-2024 Bacteria LM.HPF (Urine sed) [#/Area] 0 /[HPF] None Seen [facility] Urine specific gravity measu rementOrdered By: Mariajose Nickerson on 10-16-2024 Specific gravity (U) [Rel density] 1.025 1.002-1.030 [facility] Urine urobilinogen measureme ntOrdered By: Mariajose Nickerson on 10-16-2024 Urobilinogen Ql (U) 1 mg/dl High Normal [facility] White blood cell countOrdere d By: Mariajose Nickerson on 10-16-2024 White blood cell count 0 SEEN /hpf 0-5 [facility] ECHO FETALon 10-12-2024 + -----+-+ Pediatric Cardiology Echocardiogram Report + -----+-+ NAME: MELISSA BYRNE : 1995 PT ID#: [id number] Age: 29 years Sex: F STUDY DATE: 10/12/2024 10:05:33 AM ADA: 12/18/2024 GA: 30w3d Image Quality: Technically difficult and adequate. Referring Physician: Pamela Haskins Diagnosing Physician: Pamela Haskins Security System Technician: Melissa Pineda RDMS, RDCS 2nd Security System Technician: Diagnosis: [id number] abnormality and damage, single fetus or unspecified Procedure Code: 90567, 72570, 76372 Echo, Complete (w/Doppler and color) Exam Location: [facility] (). Indications: Evaluate cardiac anatomy [...] rate and rhythm. HR 140 bpm Mechanical NE 84 ms Segmental Anatomy, Cardiac Position and [...] content not included)... [facility] FETALon 10-12-2024 + --- -----+-+ Pediatric Cardiology Echocardiogram Report + -----+-+ NAME: MELISSA BYRNE : 1995 PT ID#: [id number] Age: 29 years Sex: F STUDY DATE: 10/12/2024 10:05:33 AM ADA: 12/18/2024 GA: 30w3d Image Quality: Technically difficult and adequate. Referring Physician: Pamela Haskins Diagnosing Physician: Pamela Haskins Security System Technician: Melissa Pineda RDMS, RDCS 2nd Security System Technician: Diagnosis: [id number] abnormality and damage, single fetus or unspecified Procedure Code: 75421, 81912, 66331 Echo, Complete (w/Doppler and color) Exam Location: [facility] (). Indications: Evaluate cardiac anatomy [...] rate and rhythm. HR 140 bpm Mechanical NE 84 ms Segmental Anatomy, Cardiac Position and [...] on 10/12/2024 at 12:38:17 PM Final CC [employer] [facility] Image : [id number] goDynamicsSISUID See Link below for Image Normal [facility] CNPNon 10-08-2024 CNPN Normal [facility] Bacteria Ur Culton Bacteria identified Cx Nom (U) ORGANISM ID: 1 10,000 -<50,000 CFU/ml Normal urogenital hima Streptococcus agalactiae (Group B streptococcus) was identified in this specimen, which is clinically relevant if the individual is . Normal [facility] Comment on above: Performed By: #### 6 30-4 ####[facility] LABIA [id number] [place] [address] [place] Prot/Creat Uron 10-04-2024 Protein/Creatinine (U) [Mass ratio] 0.10 mg/mg Normal <0.15 [facility] Comment on above: Order Comment: Speci men Type: URINE SPECIMENOrdering Facility: [facility] Address: [address] [place] [address] Result Comment: Adul t Proteinuria Categories:<0.15 mg/mg is considered normal to mildly increased0.15 - 0.50 mg/mg is considered moderately increased>0.50 mg/mg is considered severely increasedKDIGO. (2013). KDIGO 2012 Clinical Practice Guideline for the Evaluation and Management of Chronic Kidney Disease. Official Journal of the International Society of Nephrology, 3(1), 1-150. Performed By: #### 2 890-2 ####[facility] LABIA [id number] [address] STATES OF [facility] Protein/Creatinine (U) [Mass ratio]on 10-04-2024 Creatinine (U) [Mass/Vol] 67.2 mg/dL Normal 20.0-300.0 [facility] Comment on above: Order Comment: Speci men Type: URINE SPECIMENOrdering Facility: [facility] Address: [address] [place], [place] [address] Performed By: #### 2 890-2 ####[facility] LABCLIA [id number] [place] [id number] [place] Protein (U) [Mass/Vol] 7 mg/dL Normal 0-20 [facility] Comment on above: Order Comment: Speci men Type: URINE SPECIMENOrdering Facility: [facility] Address: [address] [place], [place] [address] Performed By: #### 2 890-2 ####[facility] LABCLIA [id number] [place] [id number] [place] CNPNon 10-02-2024 CNPN Normal [facility] CNPNon 09-27-2024 CNPN Normal [facility] OB Triage Physician Noteon 0 09-25-2024 OB Triage Physician Note [facility] Medical Records Department [address] [place] [address] OB Triage Physician Note 09/25/24 0934 MR#: [id number] Acct: [id number] Name: MELISSA BYRNE Rep #: [id number] : 1995 29 From: Leonie Waldron CNM PCP: Dr. Jamari Byrne MD Status:DEP CLI Y Location: [facility] HPI - General HPI Narrative MELISSA BYRNE, is a 29 F who presents at 27 weeks with ADA 12/23/24 with complaints of abdominal tightening. No vaginal bleeding, leakage of fluid or other symptoms. [facility] Medical History Seizures Asthma Osteoarthritis Diabetes [...] hydration 3) D/C home 09/25/24935 Date Leonie Samayoa Signature (if applicable): Date CC: JULIO Waldron; Dr. Jamari Byrne MD Signed Normal [facility] BACTERIAL VAGINOSIS NAATon 0 09-24-2024 Lactobacillus crispatus+gasseri+dez senii + Gardnerella vaginalis + Atopobium vaginae rRNA SUMIT+probe Ql (Vag fld) Detected Abnormal Not detected [facility] Comment on above: Order Comment: Speci men Type: SWABOrdering Facility: [facility] Address: [address] [place] [address] Performed By: #### C VTV, BVAMP ####[facility] LABCLIA [id number] [place] [address] [place] Bacteria Ur Culton Bacteria identified Cx Nom (U) ORGANISM ID: 1 10,000 -<50,000 CFU/ml Normal urogenital hima Normal [facility] Comment on above: Performed By: #### 6 30-4 ####[facility] LABCLIA [id number] [place] [address] [place] JOSUÉ/TRICHOMONAS NAATon 0 09-24-2024 C. glabrata RNA SUMIT+probe Ql (Vag fld) Not detected Normal Not detected [facility] Comment on above: Order Comment: Speci men Type: SWABOrdering Facility: [facility] Address: [address] [place] [address] Performed By: #### C VTV, BVAMP ####[facility] LABCLIA [id number] [address] [place] Josué sp DNA SUMIT+probe Ql (Vag fld) Not detected Normal Not detected [facility] Comment on above: Order Comment: Speci men Type: SWABOrdering Facility: [facility] Address: [address] [place] [address] Result Comment: The Josué species group target includes C. albicans, C. tropicalis, C. parapsilosis, and C. dubliniensis. Performed By: #### C VTV, BVAMP ####[facility] LABCLIA [id number] [place] [address] [place] T. vaginalis DNA SUMIT+probe Ql (Unsp spec) Not detected Normal Not detected [facility] Comment on above: Order Comment: Speci men Type: SWABOrdering Facility: [facility] Address: [address] [place] [address] Performed By: #### C VTV, BVAMP ####[facility] LABCLIA [id number] [place] [address] [place] CNOVon 09-24-2024 CNOV Normal [facility] CNPNon 09-24-2024 CNPN Normal [facility] UA DIP, URINE (POC)on 2024 BILIRUBIN UA (POCT) Negative Negative [facility] CLARITY UA (POCT) Clear [facility] COLOR UA (POCT) Yellow [facility] GLUCOSE UA (POCT) Negative Negative mg/dL [facility] Hemoglobin Ql (U) Negative Negative [facility] Interpretation and review of laboratory results Abnormal [facility] KETONE UA (POCT) 15 mg/dL Abnormal Negative [facility] LEUKOCYTES UA (POCT) Moderate Abnormal Negative [facility] NITRITE UA (POCT) Negative Negative [facility] PH UA (POCT) 7 4.5 - 8.0 [facility] Protein Ql (U) Negative Negative mg/dL [facility] SPECIFIC GRAVITY UA (POCT) 1.02 1.005 - 1.030 [facility] UROBILINOGEN UA (POCT) 1 Normal E.U./dL [facility] Location:[facility], [address] [facility], [place], [address] [facility] POINT OF CARE [facility] CNOVon 09-20-2024 CNOV Normal [facility] HEMOGLOBIN A1C (POC)on 09-20 HbA1c (Bld) [Mass fraction] 5.2 % 4.3 - 5.6 % [facility] Comment on above: Location:[facility], [address] [facility], [place], [place], [facility] Point of care (POC) Hemoglobin A1c (HGBA1C) [...] specific diabetes management situations: The POC device cushion maker hand provides a normal range of 4.2% to 6.5% for the HGBA1C POC test. However, the [place] [employer] guidelines indicate that patients with [...] anemia) that alter red blood cell lifespan. [facility] CNPNon 09-11-2024 CNPN Normal [facility] CBC W Auto Differential pane l (Bld)on 09-08-2024 Basophils (Bld) [#/Vol] 0.03 10*3/uL Normal <0.11 [facility] Comment on above: Order Comment: Speci men Type: BLOOD SPECIMENOrdering Facility: [facility] Address: [address] [place] [address] Performed By: #### 5 7021-8 ####[facility] [id number] [place] [address] [place] Basophils/100 WBC (Bld) 0.3 % Normal [facility] Comment on above: Order Comment: Speci men Type: BLOOD SPECIMENOrdering Facility: [facility] Address: [address] [place] [address] Performed By: #### 5 7021-8 ####[facility] [id number] [place] [address] [place] Differential cell count method Nom (Bld) Auto Normal [facility] Comment on above: Order Comment: Speci men Type: BLOOD SPECIMENOrdering Facility: [facility] Address: [address] [place] [address] Performed By: #### 5 7021-8 ####[facility] [id number] [place] [address] [place] Eosinophils (Bld) [#/Vol] 0.15 10*3/uL Normal <0.46 [facility] Comment on above: Order Comment: Speci men Type: BLOOD SPECIMENOrdering Facility: [facility] Address: [address] [place] [address] Performed By: #### 5 7021-8 ####[facility] [id number] [place] [address] [place] Eosinophils/100 WBC (Bld) 1.7 % Normal [facility] Comment on above: Order Comment: Speci men Type: BLOOD SPECIMENOrdering Facility: [facility] Address: [address] [place] [address] Performed By: #### 5 7021-8 ####[facility] [id number] [place] [address] [place] Erythrocyte distribution width (RBC) [Ratio] 13.6 % Normal 11.5-15.0 [facility] Comment on above: Order Comment: Speci men Type: BLOOD SPECIMENOrdering Facility: [facility] Address: [address] [place] [address] Performed By: #### 5 7021-8 ####[facility] [id number] [place] [address] [place] Hematocrit (Bld) [Volume fraction] 35.0 % Low 36.0-46.0 [facility] Comment on above: Order Comment: Speci men Type: BLOOD SPECIMENOrdering Facility: [facility] Address: [address] [place] [address] Performed By: #### 5 7021-8 ####[facility] ERNCLIA [id number] [place] [address] [place] Hemoglobin (Bld) [Mass/Vol] 12.2 g/dL Normal 11.5-15.5 [facility] Comment on above: Order Comment: Speci men Type: BLOOD SPECIMENOrdering Facility: [facility] Address: [address] [place] [address] Performed By: #### 5 7021-8 ####[facility]ITALMATHEUSA [id number] [place] [address] [place] Immature granulocytes (Bld) [#/Vol] 0.06 10*3/uL Normal <0.10 [facility] Comment on above: Order Comment: Speci men Type: BLOOD SPECIMENOrdering Facility: [facility] Address: [address] [place] [address] Performed By: #### 5 7021-8 ####[facility] [id number] [place] [address] [place] Immature granulocytes/100 WBC (Bld) 0.7 % Normal [facility] Comment on above: Order Comment: Speci men Type: BLOOD SPECIMENOrdering Facility: [facility] Address: [address] [place] [address] Performed By: #### 5 7021-8 ####[facility]HEUSA [id number] [place] [address] [place] Lymphocytes (Bld) [#/Vol] 2.07 10*3/uL Normal 1.00-4.00 [facility] Comment on above: Order Comment: Speci men Type: BLOOD SPECIMENOrdering Facility: [facility] Address: [address] [place] [address] Performed By: #### 5 7021-8 ####[facility] ERNCLIA [id number] [place] [address] [place] Lymphocytes/100 WBC (Bld) 23.7 % Normal [facility] Comment on above: Order Comment: Speci men Type: BLOOD SPECIMENOrdering Facility: [facility] Address: [address] [place] [address] Performed By: #### 5 7021-8 ####[facility] ERNCMOUNTAINSTAR [facility] [id number] [place] [address] [place] MCH (RBC) [Entitic mass] 30.5 pg Normal 26.0-34.0 [facility] Comment on above: Order Comment: Speci men Type: BLOOD SPECIMENOrdering Facility: [facility] Address: [address] [place] [address] Performed By: #### 5 7021-8 ####[facility] [id number] [place] [address] [place] MCHC (RBC) [Mass/Vol] 34.9 g/dL Normal 30.5-36.0 [facility] Comment on above: Order Comment: Speci men Type: BLOOD SPECIMENOrdering Facility: [facility] Address: [address] [place] [address] Performed By: #### 5 7021-8 ####[facility] [id number] [place] [address] [place] MCV (RBC) [Entitic vol] 87.5 fL Normal 80.0-100.0 [facility] Comment on above: Order Comment: Speci men Type: BLOOD SPECIMENOrdering Facility: [facility] Address: [address] [place] [address] Performed By: #### 5 7021-8 ####[facility] ERNCMOUNTAINSTAR [facility] [id number] [place] [address] [place] Monocytes (Bld) [#/Vol] 0.37 10*3/uL Normal <0.87 [facility] Comment on above: Order Comment: Speci men Type: BLOOD SPECIMENOrdering Facility: [facility] Address: [address] [place] [address] Performed By: #### 5 7021-8 ####[facility] WENDYWNCLIA [id number] [place] [address] [place] Monocytes/100 WBC (Bld) 4.2 % Normal [facility] Comment on above: Order Comment: Speci men Type: BLOOD SPECIMENOrdering Facility: [facility] Address: [address] [place] [address] Performed By: #### 5 7021-8 ####[facility] ERNCLIA [id number] [place] [address] [place] Neutrophils (Bld) [#/Vol] 6.04 10*3/uL Normal 1.45-7.50 [facility] Comment on above: Order Comment: Speci men Type: BLOOD SPECIMENOrdering Facility: [facility] Address: [address] [place] [address] Performed By: #### 5 7021-8 ####[facility] ERNCLIA [id number] [place] [address] [place] Neutrophils/100 WBC (Bld) 69.4 % Normal [facility] Comment on above: Order Comment: Speci men Type: BLOOD SPECIMENOrdering Facility: [facility] Address: [address] [place] [address] Performed By: #### 5 7021-8 ####[facility] VICKYWNCLIA [id number] [place] [address] [place] Nucleated RBC (Bld) [#/Vol] 10*3/uL Normal <0.01 [facility] Comment on above: Order Comment: Speci men Type: BLOOD SPECIMENOrdering Facility: [facility] Address: [address] [place] [address] Performed By: #### 5 7021-8 ####[facility] [id number] [place] [address] [place] Nucleated RBC/100 WBC (Bld) [Ratio] 0.0 /100 WBC Normal [facility] Comment on above: Order Comment: Speci men Type: BLOOD SPECIMENOrdering Facility: [facility] Address: [address] [place] [address] Performed By: #### 5 7021-8 ####[facility] [place]ICKY[place] [id number] [place] [address] [place] Platelet mean volume (Bld) [Entitic vol] 9.5 fL Normal 9.0-12.7 [facility] Comment on above: Order Comment: Speci men Type: BLOOD SPECIMENOrdering Facility: [facility] Address: [address] [place] [address] Performed By: #### 5 7021-8 ####[facility] ERKLAUSRaymond [id number] [place] [address] [place] Platelets (Bld) [#/Vol] 282 10*3/uL Normal 150-400 [facility] Comment on above: Order Comment: Speci men Type: BLOOD SPECIMENOrdering Facility: [facility] Address: [address] [place] [address] Performed By: #### 5 7021-8 ####[facility] [id number] [place] [address] [place] RBC (Bld) [#/Vol] 4.00 10*6/uL Normal 3.90-5.20 [facility] Comment on above: Order Comment: Speci men Type: BLOOD SPECIMENOrdering Facility: [facility] Address: [address] [place] [address] Performed By: #### 5 7021-8 ####[facility] ERKLAUSLIA [id number] [place] [address] [place] WBC (Bld) [#/Vol] 8.72 10*3/uL Normal 3.70-11.00 [facility] Comment on above: Order Comment: Speci men Type: BLOOD SPECIMENOrdering Facility: [facility] Address: [address] [place] [address] Performed By: #### 5 7021-8 ####[facility] [id number] [place] [address] [place] Reagin and Treponema pallidu m IgG and IgM [Interp]on 09-08-2024 T. pallidum IgG+IgM IA Ql (S) Non-Reactive Nonreactive [facility] T. pallidum IgG+IgM IA Ql (S) Non-Reactive Normal Nonreactive [facility] Comment on above: Order Comment: Speci [facility] Type: BLOOD SPECIMENOrdering Facility: [facility] Address: [address] [place] [address] Performed By: #### 7 3752-8 ####[facility] LABIA [id number] [place] [address] [place] Reagin+T pallidum IgG+IgM Se rPl-Impon 09-08-2024 Reagin and Treponema pallidum IgG and IgM [Interp] Cannot exclude recent Treponemal infection if specimen collected within 7-10 days after appearance of suspect lesions or 2-3 weeks after an exposure. Clinical correlation is required. Normal [facility] Comment on above: Order Comment: Speci men Type: BLOOD SPECIMENOrdering Facility: [facility] Address: [address] [place] [address] Performed By: #### 7 3752-8 ####[facility] LABIA [id number] [place] [id number] [place] SYPHILIS TREPONEMAL W/REFLEX on 09-08-2024 Reagin and Treponema pallidum IgG and IgM [Interp] Cannot exclude recent Treponemal infection if specimen collected within 7-10 days after appearance of suspect lesions or 2-3 weeks after an exposure. Clinical correlation is required. [facility] CNPN Normal [facility] Examination level ultrasound on 09-03-2024 [facility] Examination level ultrasound on 09-02-2024 Radiology Study observation (narrative) [facility] CNPNon 08-24-2024 CNPN [facility] FETALon 08-24-2024 + --- -----+-+ Pediatric Cardiology Echocardiogram Report + -----+-+ NAME: MELISSA BYRNE : 1995 PT ID#: [id number] Age: 29 years Sex: F STUDY DATE: 08/24/2024 12:29:33 PM ADA: 12/18/2024 GA: 23w3d Image Quality: Technically difficult and inadequate. Referring Physician: Pooja Latham Diagnosing Physician: Pamela Haskins Security System Technician: Idalmis Hough [facility] 2nd Security System Technician: Diagnosis: [id number] abnormality and damage, single fetus or unspecified Procedure Code: 31094, 80429, 91858 Echo, Complete (w/Doppler and color) Exam Location: [facility] (). Indications: Evaluate cardiac anatomy [...] rate and rhythm. HR 149 bpm Mechanical NE 110 ms Segmental Anatomy, Cardiac Position and [...] 08/24/2024 at 1:34:49 PM Final (Updated) CC [facility] [facility] Image : [id number] See Link below for Image Normal [facility] 08-20-2024 [facility] Normal [facility] 08-18-2024 [facility] Normal [facility] 08-10-2024 [facility] Normal [facility] Examination level ultrasound on 08-10-2024 Indication [...] 13 oz EFW by: Hadlock (HC-AC-FL) Extended Pile Driving Superintendent 7.6 mm CM 5.7 mm 61% Nicolaides [...] normal LVOT view: normal 3-vessel view: normal 3-zgagso-pymmcmw view: normal Heart / Thorax Situs: situs [...] Doppler Arterial Umbilical A PI 1.23 26% Udsty Umbilical A S / D 3.59 36% Hema Maternal Structures Uterus / Cervix Uterus: Visualized Cervix: Visualized Approach: Transabdominal Cervical length 34.8 mm Other: Patient declined transvaginal ultrasound for cervical length. Ovaries / Tubes / Adnexa Rt ovary: Visualized Lt ovary: Visualized Performed By: Idania Snyder RDMS, RVT Read By: Pooja Latham M.D. MATERNAL MEDICINE [facility] Radiology Study observation (narrative) [facility] URINE OB DIP B/Oon Glucose Ql (U) Negative Neg mg/dL [facility] Interpretation and review of laboratory results Normal [facility] Protein.monoclonal (U) [Mass/Vol] Negative Neg mg/dL [facility] CNPNon 08-08-2024 CNPN [facility] CNPNon 08-01-2024 CNPN [facility] CNOVon 07-26-2024 CNOV [facility] CNOVon 07-23-2024 CNOV [facility] CNPNon 07-20-2024 CNPN [facility] CNPNon 07-14-2024 CNPN [facility] Examination level ultrasound on 07-13-2024 Indication [...] 6 oz EFW by: Hadlock (HC-AC-FL) Extended Pile Driving Superintendent 4.2 mm Extremities / Bony Struc FL / HC 0.17 44% Hadlock Other Structures FHR 152 bpm Anatomy Cranium: normal Lateral ventricles: normal Choroid plexus: normal Midline falx: normal Cerebellum: normal Cisterna magna: normal Lips: normal Profile: normal 4-chamber view: normal RVOT view: normal LVOT view: normal 3-vessel view: normal 2-okivwv-sdeiisi view: normal Heart / Thorax Diaphragm: normal [...] Read By: Pooja Latham M.D. MATERNAL MEDICINE [facility] Radiology Study observation (narrative) [facility] URINE OB DIP B/OOrdered By: Rebeca Vazquez on 07-13-2024 Glucose Ql (U) 100 mg/dL Neg [facility] Interpretation and review of laboratory results Normal [facility] Protein.monoclonal (U) [Mass/Vol] Negative Neg mg/dL [facility] CNPNon 07-04-2024 CNPN [facility] CNPNon 07-02-2024 CNPN [facility] Influenza virus A and B and SARS-CoV-2 (COVID-19) identified SUMIT+probe Nom (Resp)on 07-01-2024 FLUAV RNA SUMIT+probe Ql (Resp) Detected Abnormal Not Detected [facility] FLUBV RNA SUMIT+probe Ql (Resp) Not detected Not Detected [facility] Interpretation and review of laboratory results Abnormal [facility] SARS-CoV-2 (COVID-19) RNA SUMIT+probe Ql (Resp) Not detected Not Detected [facility] This assay is an FDA-cleared, in vitro diagnostic nucleic acid amplification test for the qualitative detection and differentiation of SARS CoV-2/ Influenza A/B from nasopharyngeal specimens collected from individuals with signs and symptoms of respiratory tract infections, and has been validated for use at [facility]. Negative results do not preclude COVID-19/ Influenza A/B infections and should not be used as the sole basis for diagnosis, treatment, or other management decisions. Testing for SARS CoV-2 is recommended only for patients who meet current clinical and/or epidemiological criteria defined by federal, state, or local public health directives. [facility] FLUAV RNA SUMIT+probe Ql (Resp) Detected Abnormal Not Detected [facility] Comment on above: Order Comment: OVER is reported when the result is greater than the clinically reportable range. Performed By: #### 5 8077-9 #### JACQUELYN LOPEZ ([id number]) [facility] ([facility]) [address] [place] [address] FLUBV RNA SUMIT+probe Ql (Resp) Not detected Normal Not Detected [facility] Comment on above: Order Comment: OVER is reported when the result is greater than the clinically reportable range. Performed By: #### 5 8077-9 #### JACQUELYN LOPEZ ([id number]) [facility] ([facility]) [address] [place] [address] SARS-CoV-2 (COVID-19) RNA SUMIT+probe Ql (Resp) Not detected Normal Not Detected [facility] Comment on above: Order Comment: OVER is reported when the result is greater than the clinically reportable range. Performed By: #### 5 8077-9 #### JACQUELYN LOPEZ ([id number]) [facility] ([facility]) [address] [place] [address] XR CHEST 2 VIEWSon XR CHEST 2 VIEWS STUDY: Chest Radiographs; 07/01/2024 at 8:35 PM. INDICATION: Fever and cough.. COMPARISON: XR chest 10/23/2020. ACCESSION NUMBER(S): [id number] ORDERING CLINICIAN: SIXTO MYERS TECHNIQUE: Frontal and lateral chest. FINDINGS: CARDIOMEDIASTINAL SILHOUETTE: Cardiomediastinal silhouette is normal in size and configuration. LUNGS: Lungs are clear. ABDOMEN: No remarkable upper abdominal findings. BONES: No acute osseous changes. IMPRESSION: No focal pulmonary pathology. Signed by Leo Paris M.D. Normal [facility] XR Chest 2 Viewson No focal pulmonary pathology. Signed by Leo Paris M.D. TELERADIOLOGY STUDY: Chest Radiographs; 07/01/2024 at 8:35 PM. INDICATION: Fever and cough.. COMPARISON: XR chest 10/23/2020. ACCESSION NUMBER(S): [id number] ORDERING CLINICIAN: SIXTO MYERS TECHNIQUE: Frontal and lateral chest. FINDINGS: CARDIOMEDIASTINAL SILHOUETTE: Cardiomediastinal silhouette is normal in size and configuration. LUNGS: Lungs are clear. ABDOMEN: No remarkable upper abdominal findings. BONES: No acute osseous changes. TELERADIOLOGY Leo Paris MD - 07/01/2024 STUDY: Chest Radiographs; 07/01/2024 at 8:35 PM. INDICATION: Fever and cough.. COMPARISON: XR chest 10/23/2020. ACCESSION NUMBER(S): [id number] ORDERING CLINICIAN: SIXTO MYERS TECHNIQUE: Frontal and lateral chest. FINDINGS: CARDIOMEDIASTINAL SILHOUETTE: Cardiomediastinal silhouette is normal in size and configuration. LUNGS: Lungs are clear. ABDOMEN: No remarkable upper abdominal findings. BONES: No acute osseous changes. IMPRESSION: No focal pulmonary pathology. Signed by Leo Paris M.D. [facility] Work Phone: Radiology Study observation (narrative) [facility] Work Phone: XR Chest 2 ViewsOrdered By: eLo Paris on 07-01-2024 [facility] Work Phone: CNPNon 06-28-2024 CNPN [facility] CNPNon 06-25-2024 CNPN [facility] CNPNon 06-22-2024 CNPN [facility] CNPNon 06-19-2024 CNPN [facility] nuchal translucency me asured by USon 06-15-2024 Indication First trimester anatomic survey Maternal obesity, BMI >30, Diabetes mellitus Impression The patient is referred for a first trimester anatomy scan including nuchal translucency measurement as clinically indicated. - Single, live, intrauterine . - [place] rump length measurement is consistent with the [...] view: suboptimal 4-chamber view with color: suboptimal 6-yacpzx-askexdr view: suboptimal Abdominal cord insertion: normal Stomach: [...] Read By: Pooja Latham M.D. MATERNAL MEDICINE [facility] Radiology Study observation (narrative) [facility] [id number] PLUSon 06-15-2024 Cell-free DNA./Cell-free DNA.total Dosage of chromosome-specific cfDNA (cfDNA) [Molar fraction] 15% [facility] Comment on above: Order Comment: Speci men Type: BLOOD SPECIMENOrdering Facility: [facility] Address: [address] [place] [address] Performed By: #### M AT21 ####[employer] LABCLIA [id number] [place] [address] Chr 13+18+21+X+Y aneuploidy Dosage of chromosome-specific cfDNA Ql (cfDNA) Negative [facility] Comment on above: Order Comment: Speci men Type: BLOOD SPECIMENOrdering Facility: [facility] Address: [address] [place] [address] Performed By: #### M AT21 ####[facility] LABCLIA [id number] [place] [address] Chr 21 trisomy Dosage of chromosome-specific cfDNA Ql (cfDNA) Negative [facility] Comment on above: Order Comment: Speci men Type: BLOOD SPECIMENOrdering Facility: [facility] Address: [address] [place] [address] Performed By: #### M AT21 ####[facility] LABCLIA [id number] [place] [address] Chr X and Y aneuploidy risk Sequencing Ql (cfDNA) [Interp] Not detected [facility] Comment on above: Order Comment: Speci men Type: BLOOD SPECIMENOrdering Facility: [facility] Address: [address] [place] [address] Result Comment: Not DetectedNot Detected Performed By: #### M AT21 ####[facility] LABCLIA [id number] [place] [address] Citation Jorge (Reference lab test) Comment [facility] Comment on above: Order Comment: Speci men Type: BLOOD SPECIMENOrdering Facility: [facility] Address: [address] [place] [address] Result Comment: 1. P gabriela ROBINS, et al. Jaqueline Med. 2012;14(3):296-305.2. Shellie LIAO et al. Prenat Diag. 2013;33(6):591-597.3. Paul C, et al. Clin Chem. 2015 Apr;61(4):608-616.4. Shira ROBINS, et al. Jaqueline Med. 2011;13(11):913-920.5. ACOG/SMFM Practice Bulletin No. 226, Mar 2020. Performed By: #### M AT21 ####[facility] LABCLIA [id number] [place] [id number] Gestational age Estimated from conception date [place] [facility] Comment on above: Order Comment: Speci men Type: BLOOD SPECIMENOrdering Facility: [facility] Address: [address] [place] [address] Performed By: #### M AT21 ####[facility] LABCLIA [id number] [place] [address] GESTATIONALAGE AGE > OR = 9W Yes [facility] Comment on above: Order Comment: Speci men Type: BLOOD SPECIMENOrdering Facility: [facility] Address: [address] [place] [address] Performed By: #### M AT21 ####[facility] LABCLIA [id number] [place] [address] Laboratory comment Jorge (Report) Comment [facility] Comment on above: Order Comment: Speci men Type: BLOOD SPECIMENOrdering Facility: [facility] Address: [address] [place] [address] Result Comment: The MaterniT(R) 21 PLUS laboratory-developed test (LDT)analyzes circulating cell-free DNA from a maternal bloodsample. This test is used for screening purposes and notdiagnostic. Clinical correlation is recommended. Validationdata on twin pregnancies is limited and the ability of thistest to detect aneuploidy in higher multiple gestations hasnot yet been validated. Performed By: #### M AT21 ####[employer] LABCLIA [id number] [place] [id number] assistant director of financial aid name Nom (Provider) Comment [facility] Comment on above: Order Comment: Speci men Type: BLOOD SPECIMENOrdering Facility: [facility] Address: [address] [place] [address] Result Comment: This specimen showed an expected representation ofchromosome 21, 18 and 13 material. Clinical correlation issuggested.CommentValdemar Kearns MD, PhD, Director, [employer] Performed By: #### M AT21 ####[facility] LABCLIA [id number] [place] [address] LIMITATIONS OF THE TEST Comment [facility] Comment on above: Order Comment: Speci men Type: BLOOD SPECIMENOrdering Facility: [facility] Address: [address] [place] [address] Result Comment: Lynne harmon the results of these tests are highly [...] and Fragmin(R)). Performed By: #### M AT21 ####[employer] LABCLIA [id number] [place] [address] Monosomy X risk Dosage of chromosome-specific cfDNA Ql (Plasma cell-free+WBC DNA) [Interp] Not detected [facility] Comment on above: Order Comment: Speci men Type: BLOOD SPECIMENOrdering Facility: [facility] Address: [address] [place] [address] Performed By: #### M AT21 ####[facility] LABCLIA [id number] [place] [address] NEGATIVE PREDICTIVE VALUE Note [facility] Comment on above: Order Comment: Speci men Type: BLOOD SPECIMENOrdering Facility: [facility] Address: [address] [place] [address] Result Comment: The Negative Predictive Value (NPV) for trisomy 21, 18, and13 is greater than 99%. The NPV for SCA and ESS cannot becalculated as SCA and ESS are only reported when anabnormality is detected. Performed By: #### M AT21 ####[facility] LABCLIA [id number] [place] [address] NOTE Comment [facility] Comment on above: Order Comment: Speci men Type: BLOOD SPECIMENOrdering Facility: [facility] Address: [address] [place] [address] Result Comment: See NotesCourseload. is a subsidiary of [employer], using the brand [employer]. This test wasdeveloped and its performance characteristics determined byPixafy. It has not been cleared or approved by the Foodand Drug Administration. This laboratory is certified underthe Clinical Laboratory Improvement Amendments (CLIA) asqualified to perform high complexity clinical laboratorytesting and accredited by the College of AmericanPathologists (CAP).If there is future clinical need for adding MaterniT GENOMEtesting, this specimen will be available until term.[facility] samples will not be retained beyond 60 days.[facility] patients will have to send a new sample forre-sequencing ([facility] Test Code: 849357). Performed By: #### M AT21 ####[facility] LABCLIA [id number] [place] [address] PERFORMANCE CHARACTERISTICS Note [facility] Comment on above: Order Comment: Speci men Type: BLOOD SPECIMENOrdering Facility: [facility] Address: [address] [place] [id number] Result Comment: ! Sex ! Accuracy: 99.4% !! !! Region (associated syndrome) ! Est. Sens# ! Est. Spec !! !! Trisomy 21 (Down Syndrome) ! 99.1% ! 99.9% !! !! Trisomy 18 (Pham Syndrome) ! >99.9% ! 99.6% !! !! Trisomy 13 (Patau Syndrome) ! 91.7% ! 99.7% !! !! Sex Chromosome Aneuploidies## ! 96.2% ! 99.7% !! !* As reported in [facility] database nstd37[https://www.ncbi.nlm.nih.gov/dbvar/studies/nstd37/ ]# Estimated Sensitivity. Sensitivity estimated across theobserved size distribution of each syndrome [per [facility] nstd37] and across the range of fractionsobserved in routine clinical NIPT. Actual sensitivity canalso be influenced by other factors such as the size of theevent, total sequence counts, amplification bias, orsequence bias.## [place] gestation only. Performed By: #### M AT21 ####[facility] LABCLIA [id number] [place] [address] POSITIVE PREDICTIVE VALUE N/A [facility] Comment on above: Order Comment: Speci men Type: BLOOD SPECIMENOrdering Facility: [facility] Address: [address] [place] [address] Performed By: #### M AT21 ####777 DavisEN[facility] LABCLIA [id number] [place] [id number] Reference Lab Test Method Comment [facility] Comment on above: Order Comment: Speci men Type: BLOOD SPECIMENOrdering Facility: [facility] Address: [address] [place] [address] Result Comment: See NotesCirculating cell-free DNA was [...] 8q, 5p, 4p, 1p) and trisomy of [id number] and 22. Performed By: #### M AT21 ####[facility] LABCLIA [id number] [place] [address] Sex Dosage of chromosome-specific cfDNA Nom (cfDNA) Comment [facility] Comment on above: Order Comment: Speci men Type: BLOOD SPECIMENOrdering Facility: [facility] Address: [address] [place] [address] Result Comment: Cons istent with Female Performed By: #### M AT21 ####777 [facility] LABCLIA [id number] [place] [address] Test performance information Jorge (Unsp spec) Comment [facility] Comment on above: Order Comment: Gume escobedo Type: BLOOD SPECIMENOrdering Facility: [facility] Address: [address] [place] [address] Result Comment: The performance characteristics of the MaterniT(R) 21 PLUSlaboratory-developed test (LDT) have been determined in aclinical validation study with women at increasedrisk for chromosomal aneuploidy.[1-4] Performed By: #### M AT21 ####[employer] LABCLIA [id number] [place] [address] Trisomy 13 risk Dosage of chromosome-specific cfDNA Ql (cfDNA) [Interp] Negative [facility] Comment on above: Order Comment: Gume escobedo Type: BLOOD SPECIMENOrdering Facility: [facility] Address: [address] [place] [address] Performed By: #### M AT21 ####[facility] LABCLIA [id number] [place] [address] Trisomy 18 risk Dosage of chromosome-specific cfDNA Ql (Plasma cell-free+WBC DNA) [Interp] Negative [facility] Comment on above: Order Comment: Gume escobedo Type: BLOOD SPECIMENOrdering Facility: [facility] Address: [address] [place] [address] Performed By: #### M AT21 ####[facility] LABCLIA [id number] [place] [address] CNPNon 06-11-2024 CNPN [facility] CNOVon 06-07-2024 CNOV [facility] HEMOGLOBIN A1C (POC)on 06-07 HbA1c (Bld) [Mass fraction] 7.9 % Abnormal 4.3 - 5.6 % [facility] Comment on above: Location:[facility], [address] [place] [address], [facility] Point of care (POC) Hemoglobin A1c (HGBA1C) [...] specific diabetes management situations: The POC device cushion maker hand provides a normal range of 4.2% to 6.5% for the HGBA1C POC test. However, the [place] Diabetes Association guidelines indicate that patients with [...] Interpretation and review of laboratory results Abnormal [facility] CNPNon 06-05-2024 CNPN [facility] CNPNon 06-01-2024 CNPN [facility] URINE OB DIP B/Oon Glucose Ql (U) Negative Neg mg/dL [facility] Interpretation and review of laboratory results Normal [facility] Protein.monoclonal (U) [Mass/Vol] Negative Neg mg/dL [facility] CBC W Auto Differential pane l (Bld)on 05-21-2024 Basophils (Bld) [#/Vol] 0.05 10*3/uL [facility] Basophils/100 WBC (Bld) 0.6 % 0.0 - 2.0 % [facility] Eosinophils (Bld) [#/Vol] 0.18 10*3/uL [facility] Eosinophils/100 WBC (Bld) 2.3 % 0.0 - 6.0 % [facility] Erythrocyte distribution width (RBC) [Ratio] 12.1 % 11.5 - 14.5 % [facility] Hematocrit (Bld) [Volume fraction] 41.7 % 36.0 - 46.0 % [facility] Hemoglobin (Bld) [Mass/Vol] 14.3 g/dL 12.0 - 16.0 g/dL [facility] Immature granulocytes (Bld) [#/Vol] 0.01 10*3/uL [facility] Immature granulocytes/100 WBC (Bld) 0.1 % 0.0 - 0.9 % [facility] Comment on above: Immature Granulocyte Count (IG) includes promyelocytes, myelocytes and metamyelocytes but does not include bands. Percent differential counts (%) should be interpreted in the context of the absolute cell counts (cells/UL). Lymphocytes (Bld) [#/Vol] 3.2 10*3/uL [facility] Lymphocytes/100 WBC (Bld) 41.3 % 13.0 - 44.0 % [facility] MCH (RBC) [Entitic mass] 28.9 pg 26.0 - 34.0 pg [facility] MCHC (RBC) [Mass/Vol] 34.3 g/dL 32.0 - 36.0 g/dL [facility] MCV (RBC) [Entitic vol] 84 fL 80 - 100 fL [facility] Monocytes (Bld) [#/Vol] 0.49 10*3/uL [facility] Monocytes/100 WBC (Bld) 6.3 % 2.0 - 10.0 % [facility] Neutrophils (Bld) [#/Vol] 3.81 10*3/uL [facility] Comment on above: Percent differential counts (%) should be interpreted in the context of the absolute cell counts (cells/uL). Neutrophils/100 WBC (Bld) 49.4 % 40.0 - 80.0 % [facility] Nucleated RBC/100 WBC (Bld) [Ratio] 0 % [facility] Platelets (Bld) [#/Vol] 299 10*3/uL [facility] RBC (Bld) [#/Vol] 4.94 10*6/uL [facility] WBC (Bld) [#/Vol] 7.7 10*3/uL [facility] Basophils (Bld) [#/Vol] 0.05 x10*3/uL Normal 0.00-0.10 [facility] Comment on above: Performed By: #### 5 7021-8 #### JACQUELYN LOPEZ ([id number]) [facility] ([facility]) [address] [place] [address] Basophils/100 WBC (Bld) 0.6 % Normal 0.0-2.0 [facility] Comment on above: Performed By: #### 5 7021-8 #### JACQUELYN LOPEZ ([id number]) [facility] ([facility]) [address] [place] [address] Eosinophils (Bld) [#/Vol] 0.18 x10*3/uL Normal 0.00-0.70 [facility] Comment on above: Performed By: #### 5 7021-8 #### JACQUELYN LOPEZ ([id number]) [facility] ([facility]) [address] [place] [address] Eosinophils/100 WBC (Bld) 2.3 % Normal 0.0-6.0 [facility] Comment on above: Performed By: #### 5 7021-8 #### JACQUELYN LOPEZ ([id number]) [facility] ([facility]) [address] [place] [address] Erythrocyte distribution width (RBC) [Ratio] 12.1 % Normal 11.5-14.5 [facility] Comment on above: Performed By: #### 5 7021-8 #### JACQUELYN LOPEZ ([id number]) [facility] ([facility]) [address] [place] [address] Hematocrit (Bld) [Volume fraction] 41.7 % Normal 36.0-46.0 [facility] Comment on above: Performed By: #### 5 7021-8 #### JACQUELYN LOPEZ ([id number]) [facility] ([facility]) [address] [place] [address] 37534 Hemoglobin (Bld) [Mass/Vol] 14.3 g/dL Normal 12.0-16.0 [facility] Comment on above: Performed By: #### 5 7021-8 #### JACQUELYN LOPEZ ([id number]) [facility] ([facility]) [address] [place] [address] 94231 Immature granulocytes (Bld) [#/Vol] 0.01 x10*3/uL Normal 0.00-0.70 [facility] Comment on above: Performed By: #### 5 7021-8 #### JACQUELYN LOPEZ ([id number]) [facility] ([facility]) [address] [place] [address] 01631 Immature granulocytes/100 WBC (Bld) 0.1 % Normal 0.0-0.9 [facility] Comment on above: Result Comment: Kaela ture Granulocyte Count (IG) includes promyelocytes, myelocytes and metamyelocytes but does not include bands. Percent differential counts (%) should be interpreted in the context of the absolute cell counts (cells/UL). Performed By: #### 5 7021-8 #### JACQUELYN LOPEZ ([id number]) [facility] ([facility]) [address] [place] [address] Lymphocytes (Bld) [#/Vol] 3.20 x10*3/uL Normal 1.20-4.80 [facility] Comment on above: Performed By: #### 5 7021-8 #### JACQUELYN LOPEZ ([id number]) [facility] ([facility]) [address] [place] [address] 26263 Lymphocytes/100 WBC (Bld) 41.3 % Normal 13.0-44.0 [facility] Comment on above: Performed By: #### 5 7021-8 #### JACQUELYN LOPEZ ([id number]) [facility] ([facility]) [address] [place] [address] 59160 MCH (RBC) [Entitic mass] 28.9 pg Normal 26.0-34.0 [facility] Comment on above: Performed By: #### 5 7021-8 #### JACQUELYN LOPEZ ([id number]) [facility] ([facility]) [address] [place] [address] 47860 MCHC (RBC) [Mass/Vol] 34.3 g/dL Normal 32.0-36.0 [facility] Comment on above: Performed By: #### 5 7021-8 #### JACQUELYN LOPEZ ([id number]) [facility] ([facility]) [address] [place] [address] MCV (RBC) [Entitic vol] 84 fL Normal 80-100 [facility] Comment on above: Performed By: #### 5 7021-8 #### JACQUELYN LOPEZ ([id number]) [facility] ([facility]) [address] [place] [address] 72280 Monocytes (Bld) [#/Vol] 0.49 x10*3/uL Normal 0.10-1.00 [facility] Comment on above: Performed By: #### 5 7021-8 #### JACQUELYN LOPEZ ([id number]) [facility] ([facility]) [address] [place] [address] 05558 Monocytes/100 WBC (Bld) 6.3 % Normal 2.0-10.0 [facility] Comment on above: Performed By: #### 5 7021-8 #### JACQUELYN LOPEZ ([id number]) [facility] ([facility]) [address] [place] [address] 44275 Neutrophils (Bld) [#/Vol] 3.81 x10*3/uL Normal 1.20-7.70 [facility] Comment on above: Result Comment: Perc ent differential counts (%) should be interpreted in the context of the absolute cell counts (cells/uL). Performed By: #### 5 7021-8 #### JACQUELYN LOPEZ ([id number]) [facility] ([facility]) [address] [place] [address] 66840 Neutrophils/100 WBC (Bld) 49.4 % Normal 40.0-80.0 [facility] Comment on above: Performed By: #### 5 7021-8 #### JACQUELYN LOPEZ ([id number]) [facility] ([facility]) [address] [place] [address] 85543 Nucleated RBC/100 WBC (Bld) [Ratio] 0.0 /100 WBCs Normal 0.0-0.0 [facility] Comment on above: Performed By: #### 5 7021-8 #### JACQUELYN LOPEZ ([id number]) [facility] ([facility]) [address] [place] [address] 56461 Platelets (Bld) [#/Vol] 299 x10*3/uL Normal 150-450 [facility] Comment on above: Performed By: #### 5 7021-8 #### JACQUELYN LOPEZ ([id number]) [facility] ([facility]) [address] [place] [address] 26201 RBC (Bld) [#/Vol] 4.94 x10*6/uL Normal 4.00-5.20 [facility] Comment on above: Performed By: #### 5 7021-8 #### JACQUELYN LOPEZ ([id number]) [facility] ([facility]) [address] [place] [address] 98589 WBC (Bld) [#/Vol] 7.7 x10*3/uL Normal 4.4-11.3 [facility] Comment on above: Performed By: #### 5 7021-8 #### JACQUELYN LOPEZ ([id number]) [facility] ([facility]) [address] [place] [address] Choriogonadotropin.beta subu niton 05-21-2024 [place] [address] m[IU]/mL High <5 U [facility] Comment on above: Order Comment: OVER [...] By: #### 5 8077-9 #### JACQUELYN LOPEZ ([id number]) [facility] ([facility]) [address] [place], [place] [address] Comprehensive metabolic 2000 panelon 05-21-2024 Albumin BCP dye [Mass/Vol] 4.2 g/dL 3.4 - 5.0 g/dL [facility] ALP [Catalytic activity/Vol] 49 U/L 33 - 110 U/L [facility] ALT With P-5'-P [Catalytic activity/Vol] 20 U/L 7 - 45 U/L [facility] Comment on above: Patients treated wit h Sulfasalazine may generate falsely decreased results for ALT. Anion gap [Moles/Vol] 13 mmol/L 10 - 2 0 mmol/L [facility] AST With P-5'-P [Catalytic activity/Vol] 10 U/L 9 - 39 U/L [facility] Bilirubin [Mass/Vol] 0.5 mg/dL 0.0 - 1 .2 mg/dL [facility] Calcium [Mass/Vol] 9.8 mg/dL 8.6 - 10. 3 mg/dL [facility] Chloride [Moles/Vol] 103 mmol/L 98 - 10 7 mmol/L [facility] CO2 [Moles/Vol] 25 mmol/L 21 - 32 mmol/L [facility] Creatinine [Mass/Vol] 0.53 mg/dL 0.50 - 1.05 mg/dL [facility] eGFR - PINF [facility] Comment on above: Calculations of ascencion mated GFR are performed using the 2020 CKD-EPI Study Refit equation without the race variable for the IDMS-Traceable creatinine methods. https://jasn.asnjournals.org/content//ASN.375119 0445 Glucose [Mass/Vol] 150 mg/dL High 74 - 99 mg/dL [facility] Interpretation and review of laboratory results Abnormal [facility] Potassium [Moles/Vol] 3.7 mmol/L 3.5 - 5.3 mmol/L [facility] Protein [Mass/Vol] 7.4 g/dL 6.4 - 8.2 g/dL [facility] Sodium [Moles/Vol] 137 mmol/L 136 - 145 mmol/L [facility] Urea nitrogen [Mass/Vol] 14 mg/dL 6 - 23 mg/dL [facility] Albumin BCP dye [Mass/Vol] 4.2 g/dL Normal 3.4-5.0 [facility] Comment on above: Performed By: #### 2 4323-8 #### VALLADARES JOHN ([id number]) [facility] ([facility]) [address] [place] [address] ALP [Catalytic activity/Vol] 49 U/L Normal 33-110 [facility] Comment on above: Performed By: #### 2 4323-8 #### JACQUELYN LOPEZ ([id number]) [facility] ([facility]) [address] [place] [address] ALT With P-5'-P [Catalytic activity/Vol] 20 U/L Normal 7-45 [facility] Comment on above: Result Comment: Shantal ents treated with Sulfasalazine may generate falsely decreased results for ALT. Performed By: #### 2 432-8 #### JACQUELYN LOPEZ ([id number]) [facility] ([facility]) [address] [place] [address] Anion gap [Moles/Vol] 13 mmol/L Normal 10-20 [facility] Comment on above: Performed By: #### 2 432-8 #### JACQUELYN LOPEZ ([id number]) [facility] ([facility]) [address] [place] [address] AST With P-5'-P [Catalytic activity/Vol] 10 U/L Normal 9-39 [facility] Comment on above: Performed By: #### 2 432-8 #### JACQUELYN LOPEZ ([id number]) [facility] ([facility]) [address] [place] [address] Bilirubin [Mass/Vol] 0.5 mg/dL Normal 0.0-1.2 [facility] Comment on above: Performed By: #### 2 4323-8 #### JACQUELYN LOPEZ ([id number]) [facility] ([facility]) [address] [place] [address] Calcium [Mass/Vol] 9.8 mg/dL Normal 8.6-10.3 [facility] Comment on above: Performed By: #### 2 4323-8 #### JACQUELYN LOPEZ ([id number]) [facility] ([facility]) [address] [place] [address] Chloride [Moles/Vol] 103 mmol/L Normal 98-107 [facility] Comment on above: Performed By: #### 2 4323-8 #### JACQUELYN LOPEZ ([id number]) [facility] ([facility]) [address] [place] [address] 88003 CO2 [Moles/Vol] 25 mmol/L Normal 21-32 [facility] Comment on above: Performed By: #### 2 4323-8 #### JACQUELYN LOPEZ ([id number]) [facility] ([facility]) [address] [place] [address] 06854 Creatinine [Mass/Vol] 0.53 mg/dL Normal 0.50-1.05 [facility] Comment on above: Performed By: #### 2 4323-8 #### JACQUELYN LOPEZ ([id number]) [facility] ([facility]) [address] [place] [address] 52083 GFR/1.73 sq M.predicted MDRD (S/P/Bld) [Vol rate/Area] mL/min/{1.73_m2} Normal >60 [facility] Comment on above: Result Comment: Calc ulations of estimated GFR are performed using the 2020 CKD-EPI Study Refit equation without the race variable for the IDMS-Traceable creatinine methods. https://jasn.asnjournals.org/content/early//ASN.734530 7634 Performed By: #### 2 4323-8 #### JACQUELYN LOPEZ ([id number]) [facility] ([facility]) [address] [place] [address] 40754 Glucose [Mass/Vol] 150 mg/dL High 74-99 [facility] Comment on above: Performed By: #### 2 4323-8 #### JACQUELYN LOPEZ ([id number]) [facility] ([facility]) [address] [place] [address] 77377 Potassium [Moles/Vol] 3.7 mmol/L Normal 3.5-5.3 [facility] Comment on above: Performed By: #### 2 4323-8 #### JACQUELYN LOPEZ ([id number]) [facility] ([facility]) [address] [place] [address] 20267 Protein [Mass/Vol] 7.4 g/dL Normal 6.4-8.2 [facility] Comment on above: Performed By: #### 2 4323-8 #### JACQUELYN LOPEZ ([id number]) [facility] ([facility]) [address] [place], [place] [address] Sodium [Moles/Vol] 137 mmol/L Normal 136-145 [facility] Comment on above: Performed By: #### 2 4323-8 #### JACQUELYN LOPEZ ([id number]) [facility] ([facility]) [address] [place] [address] Urea nitrogen [Mass/Vol] 14 mg/dL Normal 6-23 [facility] Comment on above: Performed By: #### 2 4323-8 #### JACQUELYN LOPEZ ([id number]) [facility] ([facility]) [address] [place] [address] HCG.beta subunit Qnon 2023 Interpretation and review of laboratory results Abnormal [facility] Total HCG measuremen t is performed using the [place] Access Immunoassay which detects intact HCG and free beta HCG subunit. This test is not indicated for use as a tumor marker. HCG testing is performed using a different test methodology at [facility] than other [facility]. Direct result comparison should only be made within the same method. [facility] Urinalysis complete W Reflex Culture panel (U)on 05-21-2024 Appearance (U) Turbid Abnormal Clear [facility] Bacteria Auto (Urine sed) [#/Area] 2+ Abnormal NONE SEEN /HPF [facility] Bilirubin (U) [Mass/Vol] Negative NEGATIVE [facility] Color (U) Light-Yellow Light-Yellow , Yellow, Dark-Yellow [facility] Epithelial cells.squamous Auto (Urine sed) [#/Area] 10-25 (FEW) Reference range not established. /HPF [facility] Glucose Auto test strip (U) [Mass/Vol] OVER (4+) Abnormal Normal mg/dL [facility] Interpretation and review of laboratory results Abnormal [facility] Ketones (U) [Mass/Vol] Negative NEGATIVE mg/dL [facility] Leukocyte clumps Auto (Urine sed) [#/Area] RARE Reference range not established. /HPF [facility] Leukocyte esterase Auto test strip Ql (U) Negative NEGATIVE [facility] Mucus Auto (Urine sed) [#/Area] FEW Reference range not established. /LPF [facility] Nitrite Auto test strip Ql (U) Negative NEGATIVE [facility] pH (U) 6 [pH] 5.0, 5.5, 6.0, 6.5, 7.0, 7.5, 8.0 [facility] Protein (U) [Mass/Vol] 10 (TRACE) NEGATIVE, 10 (TRACE), 20 (TRACE) mg/dL [facility] RBC (U) [#/Vol] Negative NEGATIVE [facility] RBC Auto (Urine sed) [#/Area] 1-2 NONE, 1-2, 3-5 /HPF [facility] Specific gravity (U) [Rel density] 1.029 1.005 - 1.035 [facility] Urobilinogen (U) [Mass/Vol] 4 (2+) Abnormal Normal mg/dL [facility] Comment on above: Some pigments and me dications may cause a false positive urobilinogen. WBC Auto (Urine sed) [#/Area] 1-5 1-5, NONE /HPF [facility] OVER is reported whe n the result is greater than the clinically reportable range. [facility] Appearance (U) Turbid Normal Clear [facility] Comment on above: Order Comment: OVER is reported when the result is greater than the clinically reportable range. Performed By: #### 5 8077-9 #### JACQUELYN LOPEZ ([id number]) [facility] ([facility]) [address] [place] [address] Bacteria Auto (Urine sed) [#/Area] 2+ /HPF Abnormal NONE SEEN [facility] Comment on above: Performed By: #### 5 8077-9 #### JACQUELYN LOPEZ ([id number]) [facility] ([facility]) [address] [place] [address] Bilirubin (U) [Mass/Vol] Negative Normal NEGATIVE [facility] Comment on above: Order Comment: OVER is reported when the result is greater than the clinically reportable range. Performed By: #### 5 8077-9 #### JACQUELYN LOPEZ ([id number]) [facility] ([facility]) [address] [place] [address] Color (U) Light-Yellow Normal Light-Yellow , Yellow, Dark-Yellow [facility] Comment on above: Order Comment: OVER is reported when the result is greater than the clinically reportable range. Performed By: #### 5 8077-9 #### JACQUELYN LOPEZ ([id number]) [facility] ([facility]) [address] [place] [address] Epithelial cells.squamous Auto (Urine sed) [#/Area] 10-25 (FEW) Normal Reference range not established. [facility] Comment on above: Performed By: #### 5 8077-9 #### JACQUELYN LOPEZ ([id number]) [facility] ([facility]) [address] [place] [address] Glucose Auto test strip (U) [Mass/Vol] OVER (4+) Abnormal Normal [facility] Comment on above: Order Comment: OVER is reported when the result is greater than the clinically reportable range. Performed By: #### 5 8077-9 #### JACQUELYN LOPEZ ([id number]) [facility] ([facility]) [address] [place] [address] Ketones (U) [Mass/Vol] Negative Normal NEGATIVE [facility] Comment on above: Order Comment: OVER is reported when the result is greater than the clinically reportable range. Performed By: #### 5 8077-9 #### JACQUELYN LOPEZ ([id number]) [facility] ([facility]) [address] [place] [address] Leukocyte clumps Auto (Urine sed) [#/Area] RARE Normal Reference range not established. [facility] Comment on above: Performed By: #### 5 8077-9 #### JACQUELYN LOPEZ ([id number]) [facility] ([facility]) [address] [place], [place] [address] Leukocyte esterase Auto test strip Ql (U) Negative Normal NEGATIVE [facility] Comment on above: Order Comment: OVER is reported when the result is greater than the clinically reportable range. Performed By: #### 5 8077-9 #### JACQUELYN LOPEZ ([id number]) [facility] ([facility]) [address] [place] [address] 92233 Mucus Auto (Urine sed) [#/Area] FEW Normal Reference range not established. [facility] Comment on above: Performed By: #### 5 8077-9 #### JACQUELYN LOPEZ ([id number]) [facility] ([facility]) [address] [place] [address] 13423 Nitrite Auto test strip Ql (U) Negative Normal NEGATIVE [facility] Comment on above: Order Comment: OVER is reported when the result is greater than the clinically reportable range. Performed By: #### 5 8077-9 #### JACQUELYN LOPEZ ([id number]) [facility] ([facility]) [address] [place], [place] [address] pH (U) 6.0 [pH] Normal 5.0, 5.5, 6.0, 6.5, 7.0, 7.5, 8.0 [facility] Comment on above: Order Comment: OVER is reported when the result is greater than the clinically reportable range. Performed By: #### 5 8077-9 #### JACQUELYN LOPEZ ([id number]) [facility] ([facility]) [address] [place] [address] 47543 Protein (U) [Mass/Vol] 10 (TRACE) Normal NEGATIVE, 10 (TRACE), 20 (TRACE) [facility] Comment on above: Order Comment: OVER is reported when the result is greater than the clinically reportable range. Performed By: #### 5 8077-9 #### JACQUELYN LOPEZ ([id number]) [facility] ([facility]) [address] [place] [address] 32127 RBC (U) [#/Vol] Negative Normal NEGATIVE [facility] Comment on above: Order Comment: OVER is reported when the result is greater than the clinically reportable range. Performed By: #### 5 8077-9 #### JACQUELYN LOPEZ ([id number]) [facility] ([facility]) [address] [place] [address] 92109 RBC Auto (Urine sed) [#/Area] 1-2 Normal NONE, 1-2, 3-5 [facility] Comment on above: Performed By: #### 5 8077-9 #### JACQUELYN LOPEZ ([id number]) [facility] ([facility]) [address] [place] [address] Specific gravity (U) [Rel density] 1.029 Normal 1.005-1.035 [facility] Comment on above: Order Comment: OVER is reported when the result is greater than the clinically reportable range. Performed By: #### 5 8077-9 #### JACQUELYN LOPEZ ([id number]) [facility] ([facility]) [address] [place] [address] Urobilinogen (U) [Mass/Vol] 4 (2+) Abnormal Normal [facility] Comment on above: Order Comment: OVER is reported when the result is greater than the clinically reportable range. Result Comment: Some pigments and medications may cause a false positive urobilinogen. Performed By: #### 5 8077-9 #### JACQUELYN LOPEZ ([id number]) [facility] ([facility]) [address] [place] [address] 58636 WBC Auto (Urine sed) [#/Area] 1-5 Normal 1-5, NONE [facility] Comment on above: Performed By: #### 5 8077-9 #### JACQUELYN LOPEZ ([id number]) [facility] ([facility]) [address] [place] [address] 89225 hCG, quantitative, on 05-21-2024 [place] [address] m[IU]/mL High NINF U [facility] Comment on above: Low-level positive [...] the HCG elevation. CNPNon 05-20-2024 CNPN Normal [facility] CNPNon 05-17-2024 CNPN Normal [facility] CNPNon 05-10-2024 CNPN Normal [facility] CNPNon 05-09-2024 CNPN Normal [facility] BACTERIAL VAGINOSIS NAATon 1 07-07-2023 Lactobacillus crispatus+gasseri+dez senii + Gardnerella vaginalis + Atopobium vaginae rRNA SUMIT+probe Ql (Vag fld) Detected Abnormal Not detected [facility] Comment on above: Order Comment: Speci men Type: SWABOrdering Facility: [facility] Address: [address] [place] [address] Performed By: #### 3 6902-5, BVAMP ####[facility] LABCLIA [id number] [place] [address] [place] Bacteria Ur Culton Bacteria identified Cx Nom (U) ORGANISM ID: 1 10,000 -<50,000 CFU/ml Normal urogenital hima Streptococcus agalactiae (Group B streptococcus) was identified in this specimen, which is clinically relevant if the individual is . Normal [facility] Comment on above: Performed By: #### 6 30-4 ####[facility] LABCLIA [id number] [place] [address] [place] C. trachomatis+N. gonorrhoea e DNA SUMIT+probe Ql (Unsp spec)on 05-07-2024 C. trachomatis rRNA SUMIT+probe Ql (Unsp spec) Not detected Normal Not detected [facility] Comment on above: Order Comment: Speci men Type: SWABOrdering Facility: [facility] Address: [address] [place] [address] Performed By: #### 3 6902-5, BVAMP ####[facility] LABCLIA [id number] [place] [address] [place] N. gonorrhoeae rRNA SUMIT+probe Ql (Unsp spec) Not detected Normal Not detected [facility] Comment on above: Order Comment: Speci men Type: SWABOrdering Facility: [facility] Address: [address] [place] [address] Performed By: #### 3 6902-5, BVAMP ####[facility] LABCLIA [id number] [place] [address] [place] JOSUÉ/TRICHOMONAS NAATon 07-07-2023 C. glabrata RNA SUMIT+probe Ql (Vag fld) Not detected Normal Not detected [facility] Comment on above: Order Comment: Speci men Type: SWABOrdering Facility: [facility] Address: [address] [place] [address] Performed By: #### C VTV ####[facility] LABCLIA [id number] [address] [place] Josué sp DNA SUMIT+probe Ql (Vag fld) Not detected Normal Not detected [facility] Comment on above: Order Comment: Speci men Type: SWABOrdering Facility: [facility] Address: [address] [place] [address] Result Comment: The Josué species group target includes C. albicans, C. tropicalis, C. parapsilosis, and C. dubliniensis. Performed By: #### C VTV ####[facility] LABCLIA [id number] [address] [place] T. vaginalis DNA SUMIT+probe Ql (Unsp spec) Not detected Normal Not detected [facility] Comment on above: Order Comment: Speci men Type: SWABOrdering Facility: [facility] Address: [address] [place] [address] Performed By: #### C VTV ####[facility] LABCLIA [id number] [place] [address] [place] CARRIER SCREEN, STANDARDon 07-07-2023 CARRIER SCREEN RESULTS View results in Scanned Documents link when available. Normal [facility] Comment on above: Order Comment: Speci men Type: BLOOD SPECIMENOrdering Facility: [facility] Address: [address] [place] [address] Performed By: #### C RRSCN ####MYRIADCLIA [id number] [place] [address] CBC W Auto Differential pane l (Bld)on 05-07-2024 Basophils (Bld) [#/Vol] 0.04 10*3/uL Normal <0.11 [facility] Comment on above: Order Comment: Speci men Type: BLOOD SPECIMENOrdering Facility: [facility] Address: [address] [place] [address] Performed By: #### 5 7021-8 ####[facility] [id number] [place] [address] [place] Basophils/100 WBC (Bld) 0.7 % Normal [facility] Comment on above: Order Comment: Speci men Type: BLOOD SPECIMENOrdering Facility: [facility] Address: [address] [place] [address] Performed By: #### 5 7021-8 ####[facility] [id number] [place] [address] [place] Differential cell count method Nom (Bld) Auto Normal [facility] Comment on above: Order Comment: Speci men Type: BLOOD SPECIMENOrdering Facility: [facility] Address: [address] [place] [address] Performed By: #### 5 7021-8 ####[facility] [id number] [place] [address] [place] Eosinophils (Bld) [#/Vol] 0.14 10*3/uL Normal <0.46 [facility] Comment on above: Order Comment: Speci men Type: BLOOD SPECIMENOrdering Facility: [facility] Address: [address] [place] [address] Performed By: #### 5 7021-8 ####[facility] MILLWNCLIA [id number] [place] [address] [place] Eosinophils/100 WBC (Bld) 2.3 % Normal [facility] Comment on above: Order Comment: Speci men Type: BLOOD SPECIMENOrdering Facility: [facility] Address: [address] [place] [address] Performed By: #### 5 7021-8 ####[facility] ERKLAUSLIA [id number] [place] [address] [place] Erythrocyte distribution width (RBC) [Ratio] 12.2 % Normal 11.5-15.0 [facility] Comment on above: Order Comment: Speci men Type: BLOOD SPECIMENOrdering Facility: [facility] Address: [address] [place] [address] Performed By: #### 5 7021-8 ####[facility] [id number] [place] [address] [place] Hematocrit (Bld) [Volume fraction] 42.1 % Normal 36.0-46.0 [facility] Comment on above: Order Comment: Speci men Type: BLOOD SPECIMENOrdering Facility: [facility] Address: [address] [place] [address] Performed By: #### 5 7021-8 ####[facility] [id number] [place] [address] [place] Hemoglobin (Bld) [Mass/Vol] 14.8 g/dL Normal 11.5-15.5 [facility] Comment on above: Order Comment: Speci men Type: BLOOD SPECIMENOrdering Facility: [facility] Address: [address] [place] [address] Performed By: #### 5 7021-8 ####[facility] ERNCLIA [id number] [place] [address] [place] Immature granulocytes (Bld) [#/Vol] 10*3/uL Normal <0.10 [facility] Comment on above: Order Comment: Speci men Type: BLOOD SPECIMENOrdering Facility: [facility] Address: [address] [place] [address] Performed By: #### 5 7021-8 ####[facility] [id number] [place] [address] [place] Immature granulocytes/100 WBC (Bld) 0.2 % Normal [facility] Comment on above: Order Comment: Speci men Type: BLOOD SPECIMENOrdering Facility: [facility] Address: [address] [place] [address] Performed By: #### 5 7021-8 ####[facility] [id number] [place] [address] [place] Lymphocytes (Bld) [#/Vol] 2.83 10*3/uL Normal 1.00-4.00 [facility] Comment on above: Order Comment: Speci men Type: BLOOD SPECIMENOrdering Facility: [facility] Address: [address] [place] [address] Performed By: #### 5 7021-8 ####[facility] [id number] [place] [address] [place] Lymphocytes/100 WBC (Bld) 46.6 % Normal [facility] Comment on above: Order Comment: Speci men Type: BLOOD SPECIMENOrdering Facility: [facility] Address: [address] [place] [address] Performed By: #### 5 7021-8 ####[facility] [id number] [place] [address] [place] MCH (RBC) [Entitic mass] 28.7 pg Normal 26.0-34.0 [facility] Comment on above: Order Comment: Speci men Type: BLOOD SPECIMENOrdering Facility: [facility] Address: [address] [place] [address] Performed By: #### 5 7021-8 ####[facility] HAROLDO NUNESRUFINORaymond [id number] [place] [address] [place] MCHC (RBC) [Mass/Vol] 35.2 g/dL Normal 30.5-36.0 [facility] Comment on above: Order Comment: Speci men Type: BLOOD SPECIMENOrdering Facility: [facility] Address: [address] [place] [address] Performed By: #### 5 7021-8 ####[facility] VICKYHAWK SPRINGSVERNON [id number] [place] [address] [place] MCV (RBC) [Entitic vol] 81.7 fL Normal 80.0-100.0 [facility] Comment on above: Order Comment: Speci men Type: BLOOD SPECIMENOrdering Facility: [facility] Address: [address] [place] [address] Performed By: #### 5 7021-8 ####[facility] ERVERNON [id number] [place] [address] [place] Monocytes (Bld) [#/Vol] 0.37 10*3/uL Normal <0.87 [facility] Comment on above: Order Comment: Speci men Type: BLOOD SPECIMENOrdering Facility: [facility] Address: [address] [place] [address] Performed By: #### 5 7021-8 ####[facility] ERKLAUSLIRaymond [id number] [place] [address] [place] Monocytes/100 WBC (Bld) 6.1 % Normal [facility] Comment on above: Order Comment: Speci men Type: BLOOD SPECIMENOrdering Facility: [facility] Address: [address] [place] [address] Performed By: #### 5 7021-8 ####[facility] MILLTOWNCLIA [id number] [place] [address] [place] Neutrophils (Bld) [#/Vol] 2.68 10*3/uL Normal 1.45-7.50 [facility] Comment on above: Order Comment: Speci men Type: BLOOD SPECIMENOrdering Facility: [facility] Address: [address] [place] [address] Performed By: #### 5 7021-8 ####[facility] ERNCLIA [id number] [place] [address] [place] Neutrophils/100 WBC (Bld) 44.1 % Normal [facility] Comment on above: Order Comment: Speci men Type: BLOOD SPECIMENOrdering Facility: [facility] Address: [address] [place] [address] Performed By: #### 5 7021-8 ####[facility] [id number] [place] [address] [place] Nucleated RBC (Bld) [#/Vol] 10*3/uL Normal <0.01 [facility] Comment on above: Order Comment: Speci men Type: BLOOD SPECIMENOrdering Facility: [facility] Address: [address] [place] [address] Performed By: #### 5 7021-8 ####[facility] [id number] [place] [address] [place] Nucleated RBC/100 WBC (Bld) [Ratio] 0.0 /100 WBC Normal [facility] Comment on above: Order Comment: Speci men Type: BLOOD SPECIMENOrdering Facility: [facility] Address: [address] [place] [address] Performed By: #### 5 7021-8 ####[facility] ERNCLIA [id number] [place] [address] [place] Platelet mean volume (Bld) [Entitic vol] 9.6 fL Normal 9.0-12.7 [facility] Comment on above: Order Comment: Speci men Type: BLOOD SPECIMENOrdering Facility: [facility] Address: [address] [place] [address] Performed By: #### 5 7021-8 ####[facility] ERNCLIA [id number] [place] [address] [place] Platelets (Bld) [#/Vol] 301 10*3/uL Normal 150-400 [facility] Comment on above: Order Comment: Speci men Type: BLOOD SPECIMENOrdering Facility: [facility] Address: [address] [place] [address] Performed By: #### 5 7021-8 ####[facility] ERNCA [id number] [place] [address] [place] RBC (Bld) [#/Vol] 5.15 10*6/uL Normal 3.90-5.20 [facility] Comment on above: Order Comment: Speci men Type: BLOOD SPECIMENOrdering Facility: [facility] Address: [address] [place] [address] Performed By: #### 5 7021-8 ####[facility] ERNCLIA [id number] [place] [address] [place] WBC (Bld) [#/Vol] 6.07 10*3/uL Normal 3.70-11.00 [facility] Comment on above: Order Comment: Speci men Type: BLOOD SPECIMENOrdering Facility: [facility] Address: [address] [place] [address] Performed By: #### 5 7021-8 ####[facility] HOSPITALWNCLIA [id number] [place] [address] [place] Comprehensive metabolic 2000 panelOrdered By: Mikki Celaya on 05-07-2024 Albumin [Mass/Vol] 4.4 g/dL 3.9 - 4.9 g/dL [facility] ALP [Catalytic activity/Vol] 69 U/L 34 - 123 U/L [facility] ALT [Catalytic activity/Vol] 16 U/L 7 - 38 U/L [facility] Anion gap [Moles/Vol] 9 mmol/L 8 - 15 mmol/L [facility] AST [Catalytic activity/Vol] 10 U/L Low 13 - 35 U/L [facility] Bilirubin [Mass/Vol] 0.6 mg/dL 0.2 - 1 .3 mg/dL [facility] Calcium [Mass/Vol] 9.7 mg/dL 8.5 - 10. 2 mg/dL [facility] Chloride [Moles/Vol] 101 mmol/L 98 - 10 7 mmol/L [facility] CO2 [Moles/Vol] 23 mmol/L 22 - 30 mmol/L [facility] Creatinine [Mass/Vol] 0.43 mg/dL Low 0.58 - 0.96 mg/dL [facility] GFR/1.73 sq M.predicted among non-blacks MDRD (S/P/Bld) [Vol rate/Area] 135 mL/min/{1.73_m2} - PINF [facility] Comment on above: Estimated Glomerular Filtration Rate [...] 216 mg/dL High 74 - 99 mg/dL [facility] Comment on above: The [place] Diabete s Association (ADA) provides guidance for [...] Standards of Medical Care in Diabetes 2016, [place] Diabetes Association. Diabetes Care. 2016.39(Suppl 1). Interpretation and review of laboratory results Abnormal [facility] Potassium [Moles/Vol] 3.9 mmol/L 3.7 - 5.1 mmol/L [facility] Protein [Mass/Vol] 7.3 g/dL 6.3 - 8.0 g/dL [facility] Sodium [Moles/Vol] 133 mmol/L Low 136 - 144 mmol/L [facility] Urea nitrogen [Mass/Vol] 7 mg/dL 7 - 21 mg/dL [facility] Comprehensive metabolic 2000 panelon 05-07-2024 Albumin [Mass/Vol] 4.4 g/dL Normal 3.9-4.9 [facility] Comment on above: Order Comment: Gume escobedo Type: BLOOD SPECIMENOrdering Facility: [facility] Address: [address] [place] [address] Performed By: #### 2 4323-8 ####[facility]ITALLIA [id number] [place] [address] [place] ALP [Catalytic activity/Vol] 69 U/L Normal 34-123 [facility] Comment on above: Order Comment: Gume escobedo Type: BLOOD SPECIMENOrdering Facility: [facility] Address: [address] [place] [address] Performed By: #### 2 4323-8 ####[facility] HOSPITALWNCLIA [id number] [place] [address] [place] ALT [Catalytic activity/Vol] 16 U/L Normal 7-38 [facility] Comment on above: Order Comment: Milanai gregg Type: BLOOD SPECIMENOrdering Facility: [facility] Address: [address] [place] [address] Performed By: #### 2 4323-8 ####[facility] ERNCLIA [id number] [place] [address] [place] Anion gap [Moles/Vol] 9 mmol/L Normal 8-15 [facility] Comment on above: Order Comment: Speci men Type: BLOOD SPECIMENOrdering Facility: [facility] Address: [address] [place] [address] Performed By: #### 2 4323-8 ####[facility] ERNCLIA [id number] [place] [address] [place] AST [Catalytic activity/Vol] 10 U/L Low 13-35 [facility] Comment on above: Order Comment: Speci men Type: BLOOD SPECIMENOrdering Facility: [facility] Address: [address] [place] [address] Performed By: #### 2 4323-8 ####[facility] [id number] [place] [address] [place] Bilirubin [Mass/Vol] 0.6 mg/dL Normal 0.2-1.3 [facility] Comment on above: Order Comment: Speci men Type: BLOOD SPECIMENOrdering Facility: [facility] Address: [address] [place] [address] Performed By: #### 2 4323-8 ####[facility] ERNCMOUNTAINSTAR HEALTHCARE [id number] [place] [address] [place] Calcium [Mass/Vol] 9.7 mg/dL Normal 8.5-10.2 [facility] Comment on above: Order Comment: Speci men Type: BLOOD SPECIMENOrdering Facility: [facility] Address: [address] [place] [address] Performed By: #### 2 4323-8 ####[facility] ERNCLIA [id number] [place] [address] [place] Chloride [Moles/Vol] 101 mmol/L Normal 98-107 [facility] Comment on above: Order Comment: Speci men Type: BLOOD SPECIMENOrdering Facility: [facility] Address: [address] [place] [address] Performed By: #### 2 4323-8 ####[facility] ERNCLIA [id number] [place] [address] [place] CO2 [Moles/Vol] 23 mmol/L Normal 22-30 [facility] Comment on above: Order Comment: Speci men Type: BLOOD SPECIMENOrdering Facility: [facility] Address: [address] [place] [address] Performed By: #### 2 4323-8 ####[facility] ERNCLI [id number] [place] [address] [place] Creatinine [Mass/Vol] 0.43 mg/dL Low 0.58-0.96 [facility] Comment on above: Order Comment: Speci men Type: BLOOD SPECIMENOrdering Facility: [facility] Address: [address] [place] [address] Performed By: #### 2 4323-8 ####[facility] [id number] [place] [address] [place] Creatinine and Glomerular filtration rate.predicted panel (S/P/Bld) 135 mL/min/1.73m??? Normal >=60 [facility] Comment on above: Order Comment: Speci men Type: BLOOD SPECIMENOrdering Facility: [facility] Address: [address] [place] [address] Result Comment: Ascencion mated Glomerular Filtration Rate [...] actual GFR. Performed By: #### 2 4323-8 ####[facility] HOSPITALWNCLIA [id number] [place] [address] [place] Glucose [Mass/Vol] 216 mg/dL High 74-99 [facility] Comment on above: Order Comment: Speci men Type: BLOOD SPECIMENOrdering Facility: [facility] Address: [address] [place] [address] Result Comment: The [place] Diabetes Association (ADA) provides guidance for cutoff [...] Standards of Medical Care in Diabetes 2016, [place] Diabetes Association. Diabetes Care. 2016.39(Suppl 1). Performed By: #### 2 4323-8 ####[facility] ERKLAUSRaymond [id number] [place] [address] [place] Potassium [Moles/Vol] 3.9 mmol/L Normal 3.7-5.1 [facility] Comment on above: Order Comment: Milanai men Type: BLOOD SPECIMENOrdering Facility: [facility] Address: [address] [place] [address] Performed By: #### 2 4323-8 ####[facility] ERVERNON [id number] [place] [address] [place] Protein [Mass/Vol] 7.3 g/dL Normal 6.3-8.0 [facility] Comment on above: Order Comment: Speci men Type: BLOOD SPECIMENOrdering Facility: [facility] Address: [address] [place] [address] Performed By: #### 2 4323-8 ####[facility]ITALL[facility] [id number] [place] [address] [place] Sodium [Moles/Vol] 133 mmol/L Low 136-144 [facility] Comment on above: Order Comment: Speci men Type: BLOOD SPECIMENOrdering Facility: [facility] Address: [address] [place] [address] Performed By: #### 2 4323-8 ####[facility] [id number] [place] [address] [place] Urea nitrogen [Mass/Vol] 7 mg/dL Normal 7-21 [facility] Comment on above: Order Comment: Speci men Type: BLOOD SPECIMENOrdering Facility: [facility] Address: [address] [place] [address] Performed By: #### 2 4323-8 ####[facility] ERNCMOUNTAINSTAR HEALTHCARE [id number] [place] [address] [place] HBV surface Ag Ser Qlon 04-10 HBV surface Ag Ql (S) Negative Normal Negative [facility] Comment on above: Order Comment: Speci men Type: BLOOD SPECIMENOrdering Facility: [facility] Address: [address] [place] [address] Performed By: #### 5 195-3, 13076-2, 98625-7 ####[facility] LABCLIA [id number] [place] [address] [place] HCV Ab Ser Qlon 05-07-2024 HCV Ab Ql (S) Negative Normal Negative [facility] Comment on above: Order Comment: Speci men Type: BLOOD SPECIMENOrdering Facility: [facility] Address: [address] [place] [address] Result Comment: The result suggests no evidence of active infection with Hepatitis C virus. Should recent infection be suspected, repeat testing may be considered 4-6 weeks after this draw. Performed By: #### 1 6128-1 ####[facility] LABCLIA [id number] [place] [address] [place] HIV 1+2 Ab IA Qlon 11-29-202 4 HIV 1 and 2 Ab IA.rapid Nom (S/P/Bld) Normal [facility] Comment on above: Order Comment: Speci men Type: BLOOD SPECIMENOrdering Facility: [facility] Address: [address] [place] [address] Result Comment: Test not indicated. Performed By: #### 5 195-3, 03932-6, 63165-4 ####[facility] LABCLIA [id number] [place] [address] [place] HIV 1+2 Ab+HIV1 p24 Ag IA Ql Non-Reactive Normal Nonreactive [facility] Comment on above: Order Comment: Speci men Type: BLOOD SPECIMENOrdering Facility: [facility] Address: [address] [place] [address] Performed By: #### 5 195-3, 95881-7, 42977-9 ####[facility] LABCLIA [id number] [place] [address] [place] HIV immunoassay testing algorithm interpretation (S/P/Bld) [Interp] Normal [facility] Comment on above: Order Comment: Speci men Type: BLOOD SPECIMENOrdering Facility: [facility] Address: [address] [place] [address] Result Comment: No e vidence of HIV-1 or HIV-2 infection. Should recent infection be suspected, repeat testing may be considered 2-3 weeks after this draw.[place] Rev. Code 3701.243(E): This information has been [...] or diagnoses. Performed By: #### 5 195-3, 15982-5, 97628-5 ####[facility] LABCLIA [id number] [place] [id number] [place] PAP TESTon 05-07-2024 ADEQUACY Satisfactory for interpretation. Normal [facility] Comment on above: Order Comment: Speci men Type: FLUID SPECIMENOrdering Facility: [facility] Address: [address] [place] [address] Performed By: #### L [id number] ####[facility] LABCLIA [id number] [place] [address] [place] CASE REPORT Normal [facility] Comment on above: Order Comment: Speci men Type: FLUID SPECIMENOrdering Facility: [facility] Address: [address] [place] [address] Result Comment: Gyne cologic Cytology Report Case: [id number] Provider: Zayda Parker APRN.WRAPPER HAND Collected: 05/07/2024 10:48 AMOrdering Location: OB/Gynecology Received: 05/07/2024 12:13 PMFirst Screen: Jayne [place], [place], ASCPSpecimen: Pap Test, ThinPrep, Cervix Performed By: #### L [id number] ####[facility] LABCLIA [id number] [place] [address] [place] CLINICAL HISTORY, CYTOLOGY, PRINTED FORMS PROOFREADER Routine Exam Normal [facility] Comment on above: Order Comment: Speci men Type: FLUID SPECIMENOrdering Facility: [facility] Address: [address] [place] [address] Result Comment: Preg nant (Indicate Weeks) Performed By: #### L [id number] ####[facility] LABCLIA [id number] [place] [address] [place] CYTOLOGY PAP OTHER INTERPRETATION Predominance of coccobacilli consistent with shift in vaginal hima. Normal [facility] Comment on above: Order Comment: Speci men Type: FLUID SPECIMENOrdering Facility: [facility] Address: [address] [place] [address] Performed By: #### L [id number] ####[facility] LABCLIA [id number] [id number], [place] [address] [place] FINAL PERFORMING LAB Normal [facility] Comment on above: Order Comment: Speci men Type: FLUID SPECIMENOrdering Facility: [facility] Address: [address] [place] [address] Result Comment: Tech nical component, stummel selector screening performed at [facility], [address] [place] [address] CLIA# [id number] interpretation performed at [facility], [address] [place] [address] CLIA# [id number] Director: Gavin Boss M.D. Performed By: #### L [id number] ####[facility] LABCLIA [id number] [place] [address] [place] INTERPRETATION, CYTOLOGY, PRINTED FORMS PROOFREADER Normal [facility] Comment on above: Order Comment: Speci men Type: FLUID SPECIMENOrdering Facility: [facility] Address: [address] [place] [address] Result Comment: Nega tive for intraepithelial lesion or malignancy. Performed By: #### L [id number] ####[facility] LABCLIA [id number] [place] [address] [place] LMP 03/13/2024 Normal [facility] Comment on above: Order Comment: Speci men Type: FLUID SPECIMENOrdering Facility: [facility] Address: [address] [place] [address] Performed By: #### L [id number] ####[facility] LABCLIA [id number] [place] [address] [place] PAP DISCLAIMER COMMENT The Pap Smear is a screening test for cervical cancer. False negative results occur with all screening tests, emphasizing the need for rescreening at recommended intervals, and clinical correlation. Normal [facility] Comment on above: Order Comment: Speci men Type: FLUID SPECIMENOrdering Facility: [facility] Address: [address] [place] [address] Performed By: #### L [id number] ####[facility] LABCLIA [id number] [address] [address] [place] PAP VIDEO GAME TESTER COMMENT Normal [facility] Comment on above: Order Comment: Speci men Type: FLUID SPECIMENOrdering Facility: [facility] Address: [address] [place] [address] Performed By: #### L [id number] ####[facility] LABCLIA [id number] [address] [address] [place] POC BLINDMAKER ULTRASOUNDon 05-07-20 24 Indication Viability; confirm cardiac [...] Read By: Zayda Parker NP MATERNAL MEDICINE [facility] Radiology Study observation (narrative) [facility] Prot/Creat Uron 05-07-2024 Protein/Creatinine (U) [Mass ratio] 0.09 mg/mg Normal <0.15 [facility] Comment on above: Order Comment: Speci men Type: URINE SPECIMENOrdering Facility: [facility] Address: [address] [place], [place] [address] Result Comment: Adul t Proteinuria Categories:<0.15 mg/mg is considered normal to mildly increased0.15 - 0.50 mg/mg is considered moderately increased>0.50 mg/mg is considered severely increasedKDIGO. (2013). KDIGO 2012 Clinical Practice Guideline for the Evaluation and Management of Chronic Kidney Disease. Official Journal of the International Society of Nephrology, 3(1), 1-150. Performed By: #### 2 890-2 ####[facility] LABIA [id number] [place] [address] [place] Protein/Creatinine (U) [Mass ratio]on 05-07-2024 Creatinine (U) [Mass/Vol] 58.6 mg/dL Normal 20.0-300.0 [facility] Comment on above: Order Comment: Gume escobedo Type: URINE SPECIMENOrdering Facility: [facility] Address: [address] [place] [address] Performed By: #### 2 890-2 ####[facility] [id number] [place] [address] [place] Protein (U) [Mass/Vol] 5 mg/dL Normal 0-20 [facility] Comment on above: Order Comment: Gume escobedo Type: URINE SPECIMENOrdering Facility: [facility] Address: [address] [place] [address] Performed By: #### 2 890-2 ####[facility] [id number] [place] [address] [place] RUBELLA IGG ANTIBODYon 05-07 RUBELLA IGG AB, QUAL Negative Abnormal Positive [facility] Comment on above: Order Comment: Gume escobedo Type: BLOOD SPECIMENOrdering Facility: [facility] Address: [address] [place] [address] Result Comment: The result suggests no history of Rubella vaccination or exposure to Rubella virus, however, some individuals with past history of Rubella vaccination may test negative using this test as immunity to Rubella virus wanes over time after vaccination. Please correlate with vaccination history if applicable. Performed By: #### R UBIGG ####[facility] LABCLIA [id number] [place] [address] [place] Reagin and Treponema pallidu m IgG and IgM [Interp]on 05-07-2024 T. pallidum IgG+IgM IA Ql (S) Non-Reactive Normal Nonreactive [facility] Comment on above: Order Comment: Speci men Type: BLOOD SPECIMENOrdering Facility: [facility] Address: [address] [place] [address] Performed By: #### 5 195-3, 33105-0, 20472-0 ####[facility] LABIA [id number] [place] [address] [place] Reagin+T pallidum IgG+IgM Se rPl-Impon 05-07-2024 Reagin and Treponema pallidum IgG and IgM [Interp] Cannot exclude recent Treponemal infection if specimen collected within 7-10 days after appearance of suspect lesions or 2-3 weeks after an exposure. Clinical correlation is required. Normal [facility] Comment on above: Order Comment: Speci men Type: BLOOD SPECIMENOrdering Facility: [facility] Address: [address] [place] [address] Performed By: #### 5 195-3, 14921-4, 09122-4 ####[facility] LABIA [id number] [place] [address] [place] TSH SerPl-aCncon 05-07-2024 TSH Qn 0.807 m[IU]/L Normal 0.270-4.200 [facility] Comment on above: Order Comment: Speci men Type: BLOOD SPECIMENOrdering Facility: [facility] Address: [address] [place] [address] Result Comment: If t he patient is , TSH reference range varies by gestational period:First Trimester (weeks 9-12): 0.180-2.990 mIU/LSecond Trimester: 0.110-3.980 mIU/LThird Trimester: 0.480-4.710 mIU/Jerrell Gonzalez et al. A Practical Approach for the Verifications and Determination of Site- and Trimester-Specific Reference Intervals for Thyroid Function tests in . Thyroid, 2019:29:3:412-420. Lm E, et al. 2017 Guidelines of the [place] Thyroid Association for the Diagnosis and Management of Thyroid Disease during and the . Thyroid, 2017:27:3:315-389. Performed By: #### 3 016-3 ####[facility] LABCLIA [id number] [address] OF [facility] TYPE + SCREEN PRENATALon ABO A Normal [facility] Comment on above: Order Comment: Speci men Type: BLOOD SPECIMENOrdering Facility: [facility] Address: [address] [place] [address] Performed By: #### T SPN ####[facility] BLOOD BANKIA [id number] [place] [address] [place] Rh Nom (Bld) Positive Normal [facility] Comment on above: Order Comment: Speci men Type: BLOOD SPECIMENOrdering Facility: [facility] Address: [address] [place] [address] Performed By: #### T SPN ####[facility] BLOOD BANKIA [id number] [place] [address] [place] TYPE AND SCREEN EXPIRATION 05/10/2024 23:59 Normal [facility] Comment on above: Order Comment: Speci men Type: BLOOD SPECIMENOrdering Facility: [facility] Address: [address] [place] [address] Performed By: #### T SPN ####[facility] BLOOD BANKIA [id number] [place] [address] [place] CNOVon 05-03-2024 CNOV Normal [facility] CNPNon 05-03-2024 CNPN Normal [facility] HEMOGLOBIN A1C (POC)on 11-25 -2024 HbA1c (Bld) [Mass fraction] 10.5 % Abnormal 4.3 - 5.6 % [facility] Comment on above: Location:[facility], [address] [place] [address], [facility] Point of care (POC) Hemoglobin A1c (HGBA1C) [...] specific diabetes management situations: The POC device cushion maker hand provides a normal range of 4.2% to 6.5% for the HGBA1C POC test. However, the [place] Diabetes Association guidelines indicate that patients with [...] Interpretation and review of laboratory results Abnormal [facility] 04-23-2024 [facility] Normal [facility] 04-19-2024 [facility] Normal [facility] Bacteria identifiedon 2023 Bacteria identified Cx Nom (U) Test: Urine Culture Specimen Source: Clean Catch/Voided Specimen Type: Urine Specimen Date: 04/18/20241916 Result Date: 04/21/2024 105 Result Status: Final result Abnormal: Yes Resulting Lab: [facility] [address] [place] [address] CULTURE >100,000 Escherichia coli (Abnormal) SUSCEPTIBILITY Escherichia coli METHOD MICROSCAN --- AMPICILLIN <=8.000 ug/ml Susceptible CEFAZOLIN <=2 ug/ml Susceptible CEFAZOLIN (UNCOMPLICATED UTIS ONLY) <=2 ug/ml Susceptible CIPROFLOXACIN <=0.250 ug/ml Susceptible GENTAMICIN <=2.000 ug/ml Susceptible NITROFURANTOIN <=32 ug/ml Susceptible PIPERACILLIN/TAZOBACTAM <=8.000 ug/ml Susceptible TRIMETHOPRIM/SULFAMETHO XAZOLE <=2/38 ug/ml Susceptible Abnormal [facility] Comment on above: Performed By: #### 6 30-4 #### AQUILES Gonzalez ([id number]) [facility] ([facility]) [address] [place] [address] C. trachomatis and N. gonorr hoeae DNA SUMIT+probe Nom (Unsp spec)on 04-18-2024 C. trachomatis rRNA SUMIT+probe Ql (Unsp spec) Not detected Not Detected [facility] Interpretation and review of laboratory results Normal [facility] N. gonorrhoeae DNA Probe+sig amp Ql (Unsp spec) Not detected Not Detected [facility] C. trachomatis rRNA SUMIT+probe Ql (Unsp spec) Not detected Normal Not Detected [facility] Comment on above: Performed By: #### 3 6903-3 #### JACQUELYN LOPEZ ([id number]) [facility] ([facility]) [address] [place] [address] N. gonorrhoeae DNA Probe+sig amp Ql (Unsp spec) Not detected Normal Not Detected [facility] Comment on above: Performed By: #### 3 6903-3 #### JACQUELYN LOPEZ ([id number]) [facility] ([facility]) [address] [place] [address] Choriogonadotropin.beta subu niton 04-18-2024 HCG.beta subunit Qn 2171 m[IU]/mL High <5 [facility] Comment on above: Order Comment: Total HCG measurement is performed using the [place] tag[place]ALLET Access Immunoassay which detects intact HCG and free beta HCG subunit. This test is not indicated for use as a tumor marker. HCG testing is performed using a different test methodology at [facility] than other [facility]. Direct result comparison should only be [...] By: #### 2 1198-7 #### JACQUELYN LOPEZ ([id number]) [facility] ([facility]) [address] [place] [address] HCG ( test) IA.rapi d Ql (U)Ordered By: Lemuel Shetty on 04-18-2024 HCG ( test) Ql (U) Positive Abnormal NEGATIVE [facility] Interpretation and review of laboratory results Abnormal [facility] HCG ( test) IA.rapi d Ql (U)on 04-18-2024 HCG ( test) Ql (U) Positive Abnormal NEGATIVE [facility] Comment on above: Performed By: #### 8 0384-1 #### JACQUELYN LOPEZ ([id number]) [facility] ([facility]) [address] [place] [address] HCG.beta subunit Qnon 2023 Interpretation and review of laboratory results Abnormal [facility] Total HCG measuremen t is performed using the [place] Access Immunoassay which detects intact HCG and free beta HCG subunit. This test is not indicated for use as a tumor marker. HCG testing is performed using a different test methodology at [facility] than other [facility]. Direct result comparison should only be made within the same method. [facility] No Panel Informationon 04-18 Interpretation and review of laboratory results Abnormal [facility] Urinalysis complete W Reflex Culture panel (U)on 04-18-2024 Appearance (U) Turbid Abnormal Clear [facility] Bilirubin (U) [Mass/Vol] Negative NEGATIVE [facility] Color (U) Yellow Light-Yellow , Yellow, Dark-Yellow [facility] Glucose Auto test strip (U) [Mass/Vol] OVER (4+) Abnormal Normal mg/dL [facility] Ketones (U) [Mass/Vol] 100 (3+) Abnormal NEGATIVE mg/dL [facility] Leukocyte esterase Auto test strip Ql (U) 500 Zonia/ L Abnormal NEGATIVE [facility] Nitrite Auto test strip Ql (U) 2+ Abnormal NEGATIVE [facility] pH (U) 6 [pH] 5.0, 5.5, 6.0, 6.5, 7.0, 7.5, 8.0 [facility] Protein (U) [Mass/Vol] 30 (1+) Abnormal NEGATIVE, 10 (TRACE), 20 (TRACE) mg/dL [facility] RBC (U) [#/Vol] 0.03 (TRACE) Abnormal NEGATIVE [facility] Specific gravity (U) [Rel density] 1.048 Abnormal 1.005 - 1.035 [facility] Urobilinogen (U) [Mass/Vol] 2 (1+) Abnormal Normal mg/dL [facility] Comment on above: Due to a [...] is greater than the clinically reportable range. [facility] Appearance (U) Turbid Normal Clear [facility] Comment on above: Order Comment: OVER is reported when the result is greater than the clinically reportable range. Performed By: #### 5 8077-9 #### JACQUELYN LOPEZ ([id number]) [facility] ([facility]) [address] [place] [address] Bilirubin (U) [Mass/Vol] Negative Normal NEGATIVE [facility] Comment on above: Order Comment: OVER is reported when the result is greater than the clinically reportable range. Performed By: #### 5 8077-9 #### JACQUELYN LOPEZ ([id number]) [facility] ([facility]) [address] [place] [address] Color (U) Yellow Normal Light-Yellow , Yellow, Dark-Yellow [facility] Comment on above: Order Comment: OVER is reported when the result is greater than the clinically reportable range. Performed By: #### 5 8077-9 #### JACQUELYN LOPEZ ([id number]) [facility] ([facility]) [address] [place] [address] Glucose Auto test strip (U) [Mass/Vol] OVER (4+) Abnormal Normal [facility] Comment on above: Order Comment: OVER is reported when the result is greater than the clinically reportable range. Performed By: #### 5 8077-9 #### JACQUELYN LOPEZ ([id number]) [facility] ([facility]) [address] [place] [address] Ketones (U) [Mass/Vol] 100 (3+) Abnormal NEGATIVE [facility] Comment on above: Order Comment: OVER is reported when the result is greater than the clinically reportable range. Performed By: #### 5 8077-9 #### JACQUELYN LOPEZ ([id number]) [facility] ([facility]) [address] [place], [place] [address] Leukocyte esterase Auto test strip Ql (U) 500 Zonia/???L Abnormal NEGATIVE [facility] Comment on above: Order Comment: OVER is reported when the result is greater than the clinically reportable range. Performed By: #### 5 8077-9 #### JACQUELYN LOPEZ ([id number]) [facility] ([facility]) [address] [place], [place] [address] Nitrite Auto test strip Ql (U) 2+ Abnormal NEGATIVE [facility] Comment on above: Order Comment: OVER is reported when the result is greater than the clinically reportable range. Performed By: #### 5 8077-9 #### JACQUELYN LOPEZ ([id number]) [facility] ([facility]) [address] [place] [address] pH (U) 6.0 [pH] Normal 5.0, 5.5, 6.0, 6.5, 7.0, 7.5, 8.0 [facility] Comment on above: Order Comment: OVER is reported when the result is greater than the clinically reportable range. Performed By: #### 5 8077-9 #### JACQUELYN LOPEZ ([id number]) [facility] ([facility]) [address] [place] [address] Protein (U) [Mass/Vol] 30 (1+) Abnormal NEGATIVE, 10 (TRACE), 20 (TRACE) [facility] Comment on above: Order Comment: OVER is reported when the result is greater than the clinically reportable range. Performed By: #### 5 8077-9 #### JACQUELYN LOPEZ ([id number]) [facility] ([facility]) [address] [place] [address] RBC (U) [#/Vol] 0.03 (TRACE) Abnormal NEGATIVE [facility] Comment on above: Order Comment: OVER is reported when the result is greater than the clinically reportable range. Performed By: #### 5 8077-9 #### JACQUELYN LOPEZ ([id number]) [facility] ([facility]) [address] [place] [address] Specific gravity (U) [Rel density] 1.048 Normal 1.005-1.035 [facility] Comment on above: Order Comment: OVER is reported when the result is greater than the clinically reportable range. Performed By: #### 5 8077-9 #### JACQUELYN LOPEZ ([id number]) [facility] ([facility]) [address] [place] [address] Urobilinogen (U) [Mass/Vol] 2 (1+) Abnormal Normal [facility] Comment on above: Order Comment: [...] By: #### 5 8077-9 #### JACQUELYN LOPEZ ([id number]) [facility] ([facility]) [address] [place] [address] Urinalysis microscopic panel Auto Ql (U)on 04-18-2024 Bacteria Auto (Urine sed) [#/Area] 4+ Abnormal NONE SEEN /HPF [facility] Epithelial cells.squamous Auto (Urine sed) [#/Area] 10-25 (FEW) Reference range not established. /HPF [facility] Mucus Auto (Urine sed) [#/Area] FEW Reference range not established. /LPF [facility] RBC Auto (Urine sed) [#/Area] >20 Abnormal NONE, 1-2, 3-5 /HPF [facility] WBC Auto (Urine sed) [#/Area] >50 Abnormal 1-5, NONE /HPF [facility] Bacteria Auto (Urine sed) [#/Area] 4+ /HPF Abnormal NONE SEEN [facility] Comment on above: Performed By: #### 5 3315-8 #### JACQUELYN LOPEZ ([id number]) [facility] ([facility]) [address] [place] [address] Epithelial cells.squamous Auto (Urine sed) [#/Area] 10-25 (FEW) Normal Reference range not established. [facility] Comment on above: Performed By: #### 5 3315-8 #### JACQUELYN LOPEZ ([id number]) [facility] ([facility]) [facility] [place] [address] Mucus Auto (Urine sed) [#/Area] FEW Normal Reference range not established. [facility] Comment on above: Performed By: #### 5 3315-8 #### JACQUELYN LOPEZ ([id number]) [facility] ([facility]) [address] [place] [address] RBC Auto (Urine sed) [#/Area] >20 Abnormal NONE, 1-2, 3-5 [facility] Comment on above: Performed By: #### 5 3315-8 #### JACQUELYN LOPEZ ([id number]) [facility] ([facility]) [facility] [place] [address] WBC Auto (Urine sed) [#/Area] >50 Abnormal 1-5, NONE [facility] Comment on above: Performed By: #### 5 3315-8 #### VALLADARES JOHN ([id number]) [facility] ([facility]) [address] [place] [address] hCG, quantitative, on 04-18-2024 HCG.beta subunit Qn [...] # 0.01 x10EE3/UL Normal 0.00 - 0.10 [facility] Comment on above: Performed By: #### 2 12780 ####[place] [id number] Basophils/100 WBC (Bld) 0.3 % Normal 0.0 - 2.0 [facility] Comment on above: Performed By: #### 2 20736 ####[address] [address] CBC + DIFF Normal [facility] Comment on above: Result Comment: CBC- COMPLETE BLOOD COUNT Performed By: #### 2 10276 ####[facility],[address] [place] [address] EO # 0.11 x10EE3/UL Normal 0.00 - 0.50 [facility] Comment on above: Performed By: #### 2 39077 ####[address] [address] Eosinophils/100 WBC (Bld) 2.4 % Normal 0.0 - 7.0 [facility] Comment on above: Performed By: #### 2 04968 ####[address],[place] [address] Erythrocyte distribution width (RBC) [Ratio] 12.7 % Normal 12.0 - 15.6 [facility] Comment on above: Performed By: #### 2 36472 ####[facility],[address] [place] [address] Hematocrit (Bld) [Volume fraction] 44.1 % Normal 34.0 - 46.0 [facility] Comment on above: Performed By: #### 2 74508 ####[facility],[address] [place] [address] Hemoglobin (Bld) [Mass/Vol] 15.2 g/dL Normal 12.0 - 16.0 [facility] Comment on above: Performed By: #### 2 54278 ####[facility],[address] [place], [place] [address] Lymph # 1.74 x10EE3/UL Normal 0.80 - 2.80 [facility] Comment on above: Performed By: #### 2 49346 ####[facility],[address] [place] [address] Lymphocytes/100 WBC (Bld) 38.8 % Normal 20.0 - 45.0 [facility] Comment on above: Performed By: #### 2 34639 ####[facility],[address] [place] [address]367 MANUAL DIFF N/A Normal [facility] Comment on above: Performed By: #### 2 27727 ####[facility],[address] [place] [address]05 MCH (RBC) [Entitic mass] 29 pg Normal 27 - 33 [facility] Comment on above: Performed By: #### 2 05434 ####[facility],[address] [place] [address]21 MCHC 34 X10 3 Normal 32 - 36 [facility] Comment on above: Performed By: #### 2 61032 ####[facility],[address] [place] [address] 10336 MCV (RBC) [Entitic vol] 84 fL Normal 80 - 99 [facility] Comment on above: Performed By: #### 2 33600 ####[facility],[address] [place] [address] Magoffin # 0.48 x10EE3/UL Normal 0.20 - 1.00 [facility] Comment on above: Performed By: #### 2 77839 ####[facility],[address] [place] [address]644 MONOS % 10.7 % High 0.0 - 10.0 [facility] Comment on above: Performed By: #### 2 44104 ####[facility],[address] [place] [address] Morphology Jorge (Bld) [Interp] N/A Normal [facility] Comment on above: Performed By: #### 2 20759 ####[facility],[address] [place], [place] [address] Neut # 2.14 x10EE3/UL Normal 1.50 - 7.10 [facility] Comment on above: Performed By: #### 2 71552 ####[facility],[address] [place] [address]19 Neutrophils/100 WBC (Bld) 47.9 % Normal 46.0 - 76.0 [facility] Comment on above: Performed By: #### 2 33903 ####[facility],[address] [place] [address] 12113 PLATELET 283 x10EE3/UL Normal 150 - 450 [facility] Comment on above: Performed By: #### 2 69531 ####[facility],[address] [place] [address] 43099 Platelet mean volume (Bld) [Entitic vol] 7.1 fL Normal 6.6 - 10.5 [facility] Comment on above: Result Comment: AUTO MATED DIFFERENTIAL Performed By: #### 2 37055 ####[facility],[address] [place] [address] 29052 RBC 5.24 x 10EE6/UL Normal 4.10 - 5.[address] [facility] Comment on above: Performed By: #### 2 92732 ####[facility],[address] [place] [address] 09046 WBC 4.5 x 10EE3/UL Normal 4.5 - 10.8 [facility] Comment on above: Performed By: #### 2 82663 ####[facility],[address] [place] [address] CMP with eGFRon 04-15-2024 AGE 29 years Normal [facility] Comment on above: Performed By: #### 2 23991 #### [facility],[address] [place] [address]14 Albumin [Mass/Vol] 3.7 g/dL Normal 3.4 - 5.0 [facility] Comment on above: Performed By: #### 2 78504 #### [facility],[address] [place] [address]798 Albumin/Globulin [Mass ratio] 0.9 {ratio} Normal 0.9 - 1.6 [facility] Comment on above: Performed By: #### 2 38236 #### [facility],[address] [place] [address] 82755 ALK PHOS 89 U/L Normal 46 - 116 [facility] Comment on above: Performed By: #### 2 61553 #### [facility],[address] [place] [address] 97531 ALT [Catalytic activity/Vol] 28 U/L Normal 16 - 63 [facility] Comment on above: Performed By: #### 2 85247 #### [facility],[address] [place] [address] 36813 Anion gap [Moles/Vol] 20 mmol/L Normal 10 - 20 [facility] Comment on above: Performed By: #### 2 72600 #### [facility],[address] [place] [address] 08418 AST [Catalytic activity/Vol] 12 U/L Low 13 - 39 [facility] Comment on above: Performed By: #### 2 53056 #### [facility],[address] [place] [address] 58572 B/C RATIO 19 ratio Normal 0 - 30 [facility] Comment on above: Performed By: #### 2 57415 #### [facility],[address] [place] [address]129 Bilirubin [Mass/Vol] 0.7 mg/dL Normal 0.2 - 1.0 [facility] Comment on above: Performed By: #### 2 99825 #### [facility],[address] [place] [address]40 Calcium [Mass/Vol] 8.9 mg/dL Normal 8.5 - 10.1 [facility] Comment on above: Performed By: #### 2 61611 #### [facility] [facility],[address] [place] [address] 22867 Chloride [Moles/Vol] 101 mmol/L Normal 98 - 107 [facility] Comment on above: Performed By: #### 2 27198 #### [facility],[address] [place] [address] 82360 CMP with eGFR Normal [facility] Comment on above: Result Comment: COMP REHENSIVE METABOLIC PANEL Performed By: #### 2 65632 #### [facility],[address] [place] [address] 82807 CO2 [Moles/Vol] 20.5 mmol/L Low 21.0 - 32.0 [facility] Comment on above: Performed By: #### 2 74143 #### [facility],[address] [place] [address] 63701 Creatinine [Mass/Vol] 0.64 mg/dL Normal 0.55 - 1.02 [facility] Comment on above: Performed By: #### 2 11708 #### [facility],[address] [place] [address] 63846 GFR/1.73 sq M.predicted among non-blacks MDRD (S/P/Bld) [Vol rate/Area] mL/min/{1.73_m2} Normal 60 - 999 [facility] Comment on above: Performed By: #### 2 76215 #### [facility],[address] [place] [address] 73865 Result Comment: ACCO RDING TO THE NATIONAL KIDNEY DISEASE EDUCATION PROGRAM(NKDE), A NORMAL eGFR IS A VALUE GREATER THAN OR EQUAL TO 60 ML/MIN/1.73 SQ METERS. CHRONIC KIDNEY DISEASE: <60mL/MIN/1.73 SQ METERS KIDNEY FAILURE: <15mL/MIN/1.73 SQ METERS THIS TEST SHOULD ONLY BE USED FOR PATIENTS 18 YEARS OF AGE AND OLDER. Globulin (S) [Mass/Vol] 4.1 g/dL High 1.5 - 3.8 [facility] Comment on above: Performed By: #### 2 75241 #### [facility],[address] [place] [address] 77509 Glucose [Mass/Vol] 235 mg/dL High 74 - 106 [facility] Comment on above: Performed By: #### 2 63017 #### [facility],[address] [place] [address] 10661 Potassium [Moles/Vol] 3.4 mmol/L Low 3.5 - 5.1 [facility] Comment on above: Performed By: #### 2 75870 #### [facility],[address] [place] [address] 42161 Protein [Mass/Vol] 7.8 g/dL Normal 6.4 - 8.2 [facility] Comment on above: Performed By: #### 2 84508 #### [facility],[address] [place] [address] 97807 Sodium [Moles/Vol] 138 mmol/L Normal 136 - 145 [facility] Comment on above: Performed By: #### 2 20588 #### [facility],[address] [place] [address] 60945 Urea nitrogen [Mass/Vol] 12 mg/dL Normal 7 - 18 [facility] Comment on above: Performed By: #### 2 53187 #### [facility],[address] [place] [address] 94161 ED MED ADMINISTRATION DETAIL on 04-15-2024 ED MED ADMINISTRATION DETAIL Inspector [employer] Medication Administration Record [address] [address] [id number] 04/14/2024 Patient: MELISSA KAUR Sex: Female : [...] Leona Roberts R.N. 1 of 1 Normal [facility] ED NURSES CLINICAL NOTEon ED NURSES CLINICAL NOTE Nurse Narrative Nurse Clinical Narrative [address] [address] [id number] 04/14/2024 Patient: MELISSA KAUR Sex: Female : [...] Roberts R.N. 02:56 04/15/24. Patient transported with chemistry technologist. (to [employer]). -- 03:06 04/15/24 FABRIZIO Roberts R.N.Correction -- 03:04/15/24 FABRIZIO Roberts R.N. 02:56 04/15/24. Patient transported by stretcher with chemistry technologist. (to [employer]). -- 03:07 04/15/24 FABRIZIO Roberts R.N. 03:01 04/15/24. Patient transported to radiology. -- 03:04/15 (more content not included)... Normal [facility] ED ORDER SHEET (CPOE ONLY)on 04-15-2024 ED ORDER SHEET (CPOE ONLY) Order Sheet Order Sheet [address] [place] [address] [id number] 04/14/2024 Patient: MELISSA KAUR Sex: Female : 1995 Age: 29y MEASUREMENTS: Wt: 77.1 kg ALLERGIES: Reglan, Seroquel, Zofran, Zoloft MEDICATION/IV/DRIP/FLUI D ORDERS Order Description Priority Entered Acknowledged Completed IV NS 0.9 %1000 mL at 999 00:22 04/15/2024 00:54 01:23 mL/hr (NOW x1) Milly Ji D.O. 04/15/2024 04/15/2024 Gely Patterson, RJunoNJuno LAB ORDERS Order Description Priority Entered Acknowledged [...] on 04/17/2024. Viola Hansen R.N. results to [facility] DIAGNOSTIC STUDY ORDERS Order Description Priority [...] (04/15/2024 09:07 EST)] 2 of 2 Normal [facility] ED PHYSICIAN CLINICAL REPORT on 04-15-2024 ED PHYSICIAN CLINICAL REPORT Narrative Physician Clinical Narrative [address] [address] [id number] 04/14/2024 Patient: MELISSA KAUR Sex: Female : [...] 10/UL 4.5 - 10.8 Final EST 3 Narrative 04/15/2024 01:39 RBC 5.24 x 10/UL [...] 1.50 - 7.10 Final EST 04/15/2024 01:39 [place] # 0. (more content not included)... Normal [facility] ED SUPER BILLon 04-15-2024 ED SUPER BILL [facility] [place] [address] [place] [address] [phone] 04/14/2024 Patient: MELISSA KAUR Sex: Female : 1995 Age: 29y Item Facility Professional Category Description Code Code Quantity Fee Total Drugs Normal [facility] 692658 1 $0.00 $0.00 1000cc (163048) Nurse/E/M EMERGENCY 493587 1 $0.00 $0.00 DEPARTMENT VISIT HIGH/URGENT SEVERITY (92971-99) Nurse/IV/IM/Infusions Hydration initial 135369 1 $0.00 $0.00 (03908) Grand Total $0.00 Providers Milly Ji D.O. Chief Complaint ABDOMINAL PAIN. [facility] 2 [facility] Principal Diagnosis First trimester ; positive test in emergency department. Ultrasound was performed but could not determine the location of the . ICD-10 Codes Z34.91: Encounter for supervision of normal , unspecified, first trimester Z3A.00: Weeks of gestation of not specified 2 of 2 Normal [facility] ED VISIT SUMMARYon ED VISIT SUMMARY Visit Overview Visit Overview [address] [address] [id number] 04/14/2024 Patient: MELISSA KAUR Sex: Female : [...] hcg as outpatient on 04/17/2024. results to manager bilingual clinic Urinalysis US OB<14WK Single Gestation CLINICAL IMPRESSION FIRST TRIMESTER ; POSITIVE TEST IN EMERGENCY DEPARTMENT. ULTRASOUND WAS PERFORMED BUT COULD NOT DETERMINE THE LOCATION OF THE 3 of 3 Normal [facility] ED VITALS FLOW SHEETon 04-15 ED VITALS FLOW SHEET Vitals Vital Sign Flow Sheet [address] [place] [address] [id number] 04/14/2024 Patient: MELISSA KAUR Sex: Female : [...] 98.5 F 6 2 of 2 Normal [facility] PREG SERUM QUANTon HCG QUANTITATIVE 433 mIU/mL High 0 - [address] [facility] Comment on above: Result Comment: [...] 3RD TRIMESTER 1000-50,000 Performed By: #### 2 14968 ####[facility],[address] [place], [place] [address] SERUM QUALon 04-15 EXTERNAL QC DONE? YES Normal [facility] Comment on above: Performed By: #### 2 34508 #### [facility],[address] [place] [address] INTERNAL QC PASS Normal [facility] Comment on above: Performed By: #### 2 49112 #### [facility],[address] [place] [address] SER Positive Normal NEGATIVE [facility] Comment on above: Performed By: #### 2 37658 #### [facility],[address] [place], [place] [address] URINALYSISon 04-15-2024 Amorphous NONE Normal [facility] Comment on above: Performed By: #### 2 28960 #### [facility],[address] [place] [address] Bacteria TRACE Normal [facility] Comment on above: Performed By: #### 2 92233 #### [facility],[address] [place], [place] [address] Bilirubin Ql (U) Negative Normal NORMAL: NEGATIVE [facility] Comment on above: Performed By: #### 2 80003 #### [facility],[address] [place] [address] Casts NONE Normal [facility] Comment on above: Performed By: #### 2 18878 #### [facility],[address] [place], [place] [address] Clarity (U) clear Normal NORMAL: CLEAR [facility] Comment on above: Performed By: #### 2 47250 #### [facility],[address] [place] [address] Color (U) yellow Normal NORMAL: YELLOW [facility] Comment on above: Performed By: #### 2 24527 #### [facility],[address] [place] [address] 08202 Crystals LM Nom (Urine sed) NONE Normal [facility] Comment on above: Performed By: #### 2 58704 #### [facility],[address] [place] [address] 63202 Epi Cells MODERATE Normal [facility] Comment on above: Performed By: #### 2 81403 #### [facility],[address] [place], [place] [address] Glucose Ql (U) 1000 Abnormal NORMAL: NORMAL [facility] Comment on above: Performed By: #### 2 98756 #### [facility],[address] [place] [address] Hemoglobin Ql (U) Negative Normal NORMAL: NEGATIVE [facility] Comment on above: Performed By: #### 2 40639 #### [facility],[address] [place] [address] 13021 Ketone 150 Abnormal NORMAL: NEGATIVE [facility] Comment on above: Performed By: #### 2 96693 #### [facility],[address] [place] [address] 63752 Leukocytes 25 Abnormal NORMAL: NEGATIVE [facility] Comment on above: Performed By: #### 2 07680 #### [facility],[address] [place] [address] 78196 Mucous NONE Normal [facility] Comment on above: Performed By: #### 2 05459 #### [facility],[address] [place] [address] 68286 Nitrite Ql (U) Negative Normal NORMAL: NEGATIVE [facility] Comment on above: Performed By: #### 2 59922 #### [facility],[address] [place], [place] [address] pH (U) 5 [pH] Normal NORMAL: 5.0-8.0 [facility] Comment on above: Performed By: #### 2 19915 #### [facility],[address] [place] [address] Protein Ql (U) 15 Abnormal NORMAL: NEGATIVE [facility] Comment on above: Performed By: #### 2 32042 #### [facility],[address] [place] [address] Rbc 0-5 Normal 0-3/hpf [facility] Comment on above: Performed By: #### 2 88085 #### [facility],[address] [place] [address] Sp [place] 1.025 Normal NORMAL: 1.010-1.030 [facility] Comment on above: Performed By: #### 2 16545 #### [facility],[address] [place] [address] Specimen Type R Normal [facility] Comment on above: Performed By: #### 2 43973 #### [facility],[address] [place] [address] Urinalysis dipstick W Reflex Microscopic panel (U) SEE BELOW Normal [facility] Comment on above: Result Comment: MICR OSCOPIC Performed By: #### 2 78056 #### [facility],[address] [place] [address] Urobilinog NORM Normal NORMAL: NORMAL [facility] Comment on above: Performed By: #### 2 52807 #### [facility],[address] [place] [address] Wbc 1-5 Normal 0-5/hpf [facility] Comment on above: Performed By: #### 2 30738 #### [facility],[address] [place] [address] Yeast NONE Normal [facility] Comment on above: Performed By: #### 2 82946 #### [facility],[address] [place] [address] 63043 US OB ENDO VAGINALon 024 US OB ENDO VAGINAL [place] [address] Patient: MELISAS KAUR Phone#: : 1995 Age: 29 Gender: F Pt. Type: ER Account: [id number] Location: 052 Ordering: MILLY JI Exam Date: 04/15/2024/2:54 Family Phys: JAMARI BYRNE Charge Code: 729932 Physician: [place] Order #: [id number] Dose#: PROCEDURE: OB INITIAL <14 WEEKS ULTRASOUND, [...] Nobles MD on 04/15/2024 at 9:02 Normal [facility] US OB INITIAL< 14 WEEKS; 1st GESTATIONon 04-15-2024 US OB INITIAL< 14 WEEKS; 1st GEST[address] [address] Patient: MELISSA KAUR Phone#: : 1995 Age: 29 Gender: F Pt. Type: ER Account: [id number] Location: 052 Ordering: MILLY JI Exam Date: 04/15/2024/2:54 Family Phys: JAMARI BYRNE Charge Code: 117390 Physician: [place] Order #: [id number] Dose#: PROCEDURE: OB INITIAL <14 WEEKS ULTRASOUND, [...] Nobles MD on 04/15/2024 at 9:02 Normal [facility] CNPNon 04-14-2024 CNPN Normal [facility] Basic metabolic 2000 panelon 12-16-2023 Anion gap [Moles/Vol] 14 mmol/L Normal 10-20 [facility] Comment on above: Performed By: #### 2 4321-2 #### JACQUELYN LOPEZ ([id number]) [facility] ([facility]) [facility] [place] [address] Calcium [Mass/Vol] 9.3 mg/dL Normal 8.6-10.3 [facility] Comment on above: Performed By: #### 2 4321-2 #### JACQUELYN LOPEZ ([id number]) [facility] ([facility]) [facility] [place] [address] Chloride [Moles/Vol] 101 mmol/L Normal 98-107 [facility] Comment on above: Performed By: #### 2 4321-2 #### JACQUELYN LOPEZ ([id number]) [facility] ([facility]) [address] [place] [address] 34533 CO2 [Moles/Vol] 26 mmol/L Normal 21-32 [facility] Comment on above: Performed By: #### 2 4321-2 #### JACQUELYN LOPEZ ([id number]) [facility] ([facility]) [address] [place] [address] 59021 Creatinine [Mass/Vol] 0.54 mg/dL Normal 0.50-1.05 [facility] Comment on above: Performed By: #### 2 4321-2 #### JACQUELYN LOPEZ ([id number]) [facility] ([facility]) [address] [place] [address] 93391 GFR/1.73 sq M.predicted MDRD (S/P/Bld) [Vol rate/Area] mL/min/{1.73_m2} Normal >60 [facility] Comment on above: Result Comment: Calc ulations of estimated GFR are performed using the 2020 CKD-EPI Study Refit equation without the race variable for the IDMS-Traceable creatinine methods. https://jasn.asnjournals.org/content/early//ASN.931403 2479 Performed By: #### 2 4321-2 #### JACQUELYN LOPEZ ([id number]) [facility] ([facility]) [address] [place] [address] 01437 Glucose [Mass/Vol] 207 mg/dL High 74-99 [facility] Comment on above: Performed By: #### 2 4321-2 #### JACQUELYN LOPEZ ([id number]) [facility] ([facility]) [address] [place] [address] 51629 Potassium [Moles/Vol] 3.7 mmol/L Normal 3.5-5.3 [facility] Comment on above: Performed By: #### 2 4321-2 #### JACQUELYN LOPEZ ([id number]) [facility] ([facility]) [address] [place] [address] 23543 Sodium [Moles/Vol] 137 mmol/L Normal 136-145 [facility] Comment on above: Performed By: #### 2 4321-2 #### JACQUELYN LOPEZ ([id number]) [facility] ([facility]) [address] [place] [address] 15618 Urea nitrogen [Mass/Vol] 7 mg/dL Normal 6-23 [facility] Comment on above: Performed By: #### 2 4321-2 #### JACQUELYN LOPEZ ([id number]) [facility] ([facility]) [address] [place] [address] 23307 HbA1c (Bld) [Mass fraction]o n 12-16-2023 Average glucose Estimated from glycated hemoglobin (Bld) [Mass/Vol] 246 mg/dL Normal Not Established [facility] Comment on above: Order Comment: Diagn osis of Diabetes-Adults Non-Diabetic: < or = 5.6% Increased risk for developing diabetes: 5.7-6.4% Diagnostic of diabetes: > or = 6.5% Performed By: #### 4 548-4 #### JACQUELYN LOPEZ ([id number]) [facility] ([facility]) [address] [place] [address] 91345 Hemoglobin A1c/Hemoglobin.to bg 12-16-2023 HbA1c (Bld) [Mass fraction] 10.2 % High see below [facility] Comment on above: Order Comment: Diagn osis of Diabetes-Adults Non-Diabetic: < or = 5.6% Increased risk for developing diabetes: 5.7-6.4% Diagnostic of diabetes: > or = 6.5% Performed By: #### 4 548-4 #### JACQUELYN LOPEZ ([id number]) [facility] ([facility]) [address] [place] [address] 40324 Basic metabolic 2000 panelon 09-15-2023 Anion gap [Moles/Vol] 13 mmol/L Normal 10-20 [facility] Comment on above: Performed By: #### 2 4321-2 #### JACQUELYN LOPEZ ([id number]) [facility] ([facility]) [address] [place] [address] Calcium [Mass/Vol] 9.9 mg/dL Normal 8.6-10.3 [facility] Comment on above: Performed By: #### 2 4321-2 #### JACQUELYN LOPEZ ([id number]) [facility] ([facility]) [facility] [place] [address] Chloride [Moles/Vol] 99 mmol/L Normal 98-107 [facility] Comment on above: Performed By: #### 2 4321-2 #### JACQUELYN LOPEZ ([id number]) [facility] ([facility]) [address] [place] [address] 45271 CO2 [Moles/Vol] 28 mmol/L Normal 21-32 [facility] Comment on above: Performed By: #### 2 4321-2 #### JACQUELYN LOPEZ ([id number]) [facility] ([facility]) [address] [place] [address] 83109 Creatinine [Mass/Vol] 0.57 mg/dL Normal 0.50-1.05 [facility] Comment on above: Performed By: #### 2 4321-2 #### JACQUELYN LOPEZ ([id number]) [facility] ([facility]) [address] [place] [address] 50933 GFR/1.73 sq M.predicted MDRD (S/P/Bld) [Vol rate/Area] mL/min/{1.73_m2} Normal >60 [facility] Comment on above: Result Comment: Calc ulations of estimated GFR are performed using the 2020 CKD-EPI Study Refit equation without the race variable for the IDMS-Traceable creatinine methods. https://jasn.asnjournals.org/content/early//ASN.235739 0140 Performed By: #### 2 4321-2 #### JACQUELYN LOPEZ ([id number]) [facility] ([facility]) [facility] [place] [address] Glucose [Mass/Vol] 208 mg/dL High 74-99 [facility] Comment on above: Performed By: #### 2 4321-2 #### JACQUELYN LOPEZ ([id number]) [facility] ([facility]) [address] [place] [address] Potassium [Moles/Vol] 4.0 mmol/L Normal 3.5-5.3 [facility] Comment on above: Performed By: #### 2 4321-2 #### JACQUELYN LOPEZ ([id number]) [facility] ([facility]) [address] [place] [address] Sodium [Moles/Vol] 136 mmol/L Normal 136-145 [facility] Comment on above: Performed By: #### 2 4321-2 #### JACQUELYN LOPEZ ([id number]) [facility] ([facility]) [address] [place] [address] Urea nitrogen [Mass/Vol] 10 mg/dL Normal 6-23 [facility] Comment on above: Performed By: #### 2 4321-2 #### JACQUELYN LOPEZ ([id number]) [facility] ([facility]) [address] [place] [address] HbA1c (Bld) [Mass fraction]o n 09-15-2023 Average glucose Estimated from glycated hemoglobin (Bld) [Mass/Vol] 226 mg/dL Normal Not Established [facility] Comment on above: Order Comment: Diagn osis of Diabetes-Adults Non-Diabetic: < or = 5.6% Increased risk for developing diabetes: 5.7-6.4% Diagnostic of diabetes: > or = 6.5% Monitoring of Diabetes Age (y)....................... Therapeutic Goal (%) Adults: >18.........................<7.0 Pediatrics: 13-18...................<7.5 Pediatrics: 7-12....................<8.0 Pediatrics: 0-6..................... 7.5-8.5 [employer] [employer]. Diabetes Care 33(S1), Jun 2009 Performed By: #### 4 548-4 #### JACQUELYN LOPEZ ([id number]) [facility] ([facility]) [address] [place] [address] 25610 Hemoglobin A1c/Hemoglobin.to bg 09-15-2023 HbA1c (Bld) [Mass fraction] 9.5 % High see below [facility] Comment on above: Order Comment: Diagn osis of Diabetes-Adults Non-Diabetic: < or = 5.6% Increased risk for developing diabetes: 5.7-6.4% Diagnostic of diabetes: > or = 6.5% Monitoring of Diabetes Age (y)....................... Therapeutic Goal (%) Adults: >18.........................<7.0 Pediatrics: 13-18...................<7.5 Pediatrics: 7-12....................<8.0 Pediatrics: 0-6..................... 7.5-8.5 [employer] [employer]. Diabetes Care 33(S1), Jun 2009 Performed By: #### 4 548-4 #### JACQUELYN LOPEZ ([id number]) [facility] ([facility]) [address] [place] [address] 57647 BASIC METABOLIC PANELon - Anion gap [Moles/Vol] 13 mmol/L Normal 10 - 20 [facility] Comment on above: Performed By: #### B MP #### [address] [address] Calcium [Mass/Vol] 9.2 mg/dL Normal 8.6 - 10.3 [facility] Comment on above: Performed By: #### B MP #### [address] [address] Chloride [Moles/Vol] 101 mmol/L Normal 98 - 107 [facility] Comment on above: Performed By: #### B MP #### [address] [address] Creatinine [Mass/Vol] 0.55 mg/dL Normal 0.50 - 1.05 [facility] Comment on above: Performed By: #### B MP #### [address] [address] eGFR FEMALE >90 Normal >90 [facility] Comment on above: Result Comment: CALC ULATIONS OF ESTIMATED GFR ARE PERFORMED USING THE 2020 CKD-EPI STUDY REFIT EQUATION WITHOUT THE RACE VARIABLE FOR THE IDMS-TRACEABLE CREATININE METHODS. https://jasn.asnjournals.org/content/early/ASN.512592 6319 Performed By: #### B MP #### [address] [address] Glucose [Mass/Vol] 296 mg/dL High 74 - 99 [facility] Comment on above: Performed By: #### B MP #### [address] [address] HCO3 (Bld) [Moles/Vol] 26 mmol/L Normal 21 - 32 [facility] Comment on above: Performed By: #### B MP #### [address] [address] Potassium [Moles/Vol] 3.8 mmol/L Normal 3.5 - 5.3 [facility] Comment on above: Performed By: #### B MP #### [address] [address] Sodium [Moles/Vol] 136 mmol/L Normal 136 - 145 [facility] Comment on above: Performed By: #### B MP #### [address] [address] Urea nitrogen [Mass/Vol] 10 mg/dL Normal 6 - 23 [facility] Comment on above: Performed By: #### B MP #### [address] [address] Lab Specimen Source Normal [facility] Comment on above: Performed By: #### B MP #### [address] [address] Performed By: #### H BA1E #### [address] [address] HEMOGLOBIN A1Con 12-03-2022 Glucose [Mass/Vol] 209 mg/dL [facility] Comment on above: Performed By: #### H BA1E #### [address] [address] HbA1c (Bld) [Mass fraction] 8.9 % Abnormal [facility] Comment on above: Result Comment: Diag nosis of Diabetes-Adults Non-Diabetic: < or = 5.6% Increased risk for developing diabetes: 5.7-6.4% Diagnostic of diabetes: > or = 6.5% . Monitoring of Diabetes Age (y) Therapeutic Goal (%) Adults: >18 <7.0 Pediatrics: 13-18 <7.5 7-12 <8.0 0- 6 7.5-8.5 [employer]. Diabetes Care 33(S1), Jun 2009. Performed By: #### H BA1E #### [address] [address] HCG ( test) Ql (U)o n 08-17-2022 Internal Control Pass [facility] Interpretation and review of laboratory results Normal [facility] POC , Urineon 08-17 HCG ( test) Ql (U) Negative Negative [facility] Hemoglobin A1Con 05-24-2022 Glucose [Mass/Vol] 246 mg/dL [facility] Work Phone: HbA1c (Bld) [Mass fraction] 10.2 % Abnormal [facility] Work Phone: Comment on above: Diagnosis of Diabete s-Adults Non-Diabetic: < or = 5.6% Increased risk for developing diabetes: 5.7-6.4% Diagnostic of diabetes: > or = 6.5%. Monitoring of Diabetes Age (y) Therapeutic Goal (%) Adults: >18 <7.0 Pediatrics: 13-18 <7.5 7-12 <8.0 0- 6 7.5-8.5 [employer] [employer]. Diabetes Care 33(S1), Jun 2009. Laboratory - Chemistry and C hemistry - challengeon 05-24-2022 Anion gap [Moles/Vol] 14 mmol/L 10 - 20 [facility] Work Phone: Calcium [Mass/Vol] 9.8 mg/dL 8.6 - 10.3 [facility] Work Phone: Chloride [Moles/Vol] 101 mmol/L 98 - 107 [facility] Work Phone: CO2 [Moles/Vol] 24 mmol/L 21 - 32 [facility] Work Phone: Creatinine [Mass/Vol] 0.58 mg/dL See Below [facility] Work Phone: Comment on above: Reference Range: 0.5 0 - 1.05 Glucose [Mass/Vol] 263 mg/dL above high threshold 74 - 99 [facility] Work Phone: Potassium [Moles/Vol] 3.5 mmol/L 3.5 - 5.3 [facility] Work Phone: Sodium [Moles/Vol] 135 mmol/L below low threshold 136 - 145 [facility] Work Phone: Urea nitrogen [Mass/Vol] 12 mg/dL 6 - 23 [facility] Work Phone: No Panel Informationon 05-24 >90 >90 [facility] Work Phone: Comment on above: CALCULATIONS OF ASCENCION MATED GFR ARE PERFORMED USING THE 2020 CKD-EPI STUDY REFIT EQUATION WITHOUT THE RACE VARIABLE FOR THE IDMS-TRACEABLE CREATININE METHODS.https://jasn.asnjournals.org/content/early// N.8175255214 Office Visit (Family Medicin e)on 05-24-2022 Follow-up visit Diagnoses/Problems Hyperglycemia due to diabetes mellitus (250.02) (E11.65) Anxiety and depression (300.00,311) (F41.9,F32.A) Bipolar depression (296.50) (F31.9) Orders Hyperglycemia due to diabetes mellitus Start: Pioglitazone HCl - 15 MG Oral Tablet; Take 1 tablet daily Follow-up visit in 3 months Outpatient Follow-up Status: Hold For - Scheduling Requested for: [id number] Hemoglobin A1C; Status:Active; Requested for:35Oln7405; PMH: History of diabetes mellitus Renew: Trulicity [...] 25 MG TABS Vitals Vital Signs Recorded: 16Qpl3669 10:15AM Heart Rate94 Ygfveqfa622 Bdhysqunb72 Njqcec942.48 cm Llpvkk58.64 kg BMI Umgjnymjok20.92 kg/m2 BSA Calculated1.83 Tobacco Usea) Yes PHQ-2 [...] AND affect, Normal judgment. Results/Data Basic Metabolic Cdkic10Kim9791 08:34AMRaberJamari Test NameResultFlagReference Glucose, Fgrkw808 mg/dLH74 - 99 Sodium, Aydbl552 mmol/LL136 - 145 POTASSIUM3.5 mmol/L3.5 - 5.3 Chloride, Ugumj909 mmol/L98 - 107 Bicarbonate, Serum24 mmol/L21 - 32 Anion Gap, Serum14 mmol/L10 - 20 Blood Urea Nitrogen, Serum12 mg/dL6 - 23 CREATININE0.58 mg/dLSee Below Reference (more content not included)... Normal Quick Key Tobacco Screening.on 022 Adult depression screening assessment Yes [facility] Work Phone: Tobacco use status CPHS a) Yes [facility] Work Phone: Office Visit ([facility] e)on 02-22-2022 Follow-up visit Diagnoses/Problems Hyperglycemia due to diabetes mellitus (250.02) (E11.65) Anxiety and depression (300.00,311) (F41.9,F32.A) Orders Anxiety and depression Follow-up visit in 3 months Outpatient Follow-up Status: Hold For - Scheduling Requested for: 02Kfd4750 Basic Metabolic Panel; Status:Active; Requested for:40Uwz7764; Anxiety and depression, Hyperglycemia due to diabetes mellitus Hemoglobin A1C; Status:Active; Requested for:81Rwz0578; Health Maintenance Renew: Albuterol Sulfate HFA 108 [...] CapsuleSocHx: Current smoker Benadryl 25 MG TABS [place] Carbonate 300 MG Oral Capsule Vitals Vital Signs Recorded: 83Pwm4790 08:55AM Heart Rate73 Mizfspwgmmo05 Iwmrdpxk836 Ddrfkbygw30 Height5 ft 2 in Cxynek055 lb BMI Diwolzfaei46.56 kg/m2 BSA Calculated1.82 Tobacco Usea) Yes Patient encouraged to stop using tobacco productsYes Falls Screening (Age 18+)a) No falls within the last year O2 Cmfdkhdemd88 Physical Exam General: Alert and oriented, No [...] Feb 22 2022 9:20AM EST (Author) Normal Touchworks Office Visit (Family Junior harmon)on 01-04-2022 Follow-up [...] Vital Signs Recorded: 04Jan2022 01:47PM Heart Rate80 Dhdwfbvv409 Smkwdrlly22 Height5 ft 2 in Ghktbq200 lb 15.70 oz BMI Ldceczehsg69.91 kg/m2 BSA Calculated1.78 Tobacco Usea) Yes Patient [...] Jan 04 2022 2:03PM EST (Author) Normal Quick Key Tobacco Screening.on 022 Fall risk assessment a) No falls within the last year [facility] Work Phone: Tobacco use status [facility] a) Yes [facility] Work Phone: Tobacco Screening. Yes [facility] Work Phone: LMPon 12-25-2021 Last menstrual period start date 85Dem7773 [facility] and [address] [place] [address] Work Phone: RN STARS - Office Visiton 12-07 RN STARS - Office Visit Provider Marivel mark Patient [...] AND DRINK ONCE. Vitals Vital Signs Recorded: 56Wqy5681 08:36AM Sdwhumjg409 Fdcypozbf96 Height5 ft 2 in Hkmkjq738 lb 0.08 oz BMI Ehfnzqoljm02.36 kg/m2 BSA Calculated1.77 TAP24Fzq6112 Physical Exam Constitutional: Healthy-appearing in no physical distress. Head and Face: No obvious lesions. Neck: Supple with good range of motion. External genitalia revealed no lesions the vagina was well estrogenized the cervix was nonfriabl there was a thick white muq-esgz-otiqaudv discharge Musculoskeletal: Good mobility of her extremities. Psychiatric: Appropriately oriented. Wet mount was negative for trichomoniasis Signatures Electronically signed by : Genoveva Sutton DO; Dec 25 2021 8:50AM EST (Author) Normal [facility] GC + Chlamydia By Amplified Detectionon 12-17-2021 C. trachomatis rRNA SUMIT+probe Ql (Unsp spec) Negative Negative [facility] and [address] Work Phone: Comment on above: The APTIMA Combo 2 a ssay is FDA-approved for Chlamydia trachomatis and Neisseria gonorrhoeae testing on female endocervical and vaginal swabs, ThinPrep liquid pap samples, male urine samples and urethral swabs. Performance characteristics for Chlamydia trachomatis and Neisseria gonorrhoeae testing on specific ifk-OFA-iedtrtra sample types (female urine samples) have been validated by [facility]. This laboratory is certified by CLIA to perform high complexity testing. Samples from all other sites are not validated for this method. N. gonorrhoeae rRNA SUMIT+probe Ql (Unsp spec) Negative Negative [facility] and [address] Work Phone: Comment on above: SOURCE: Urine The AP KATIA Combo 2 assay is FDA-approved for Chlamydia trachomatis and Neisseria gonorrhoeae testing on female endocervical and vaginal swabs, ThinPrep liquid pap samples, male urine samples and urethral swabs. Performance characteristics for Chlamydia trachomatis and Neisseria gonorrhoeae testing on specific cwx-RGM-xksqxljl sample types (female urine samples) have been validated by [facility]. This laboratory is certified by CLIA to perform high complexity testing. Samples from all other sites are not validated for this method. LMPon 12-17-2021 Last menstrual period start date 15Dec2021 [facility] and [address] Work Phone: RN STARS - Office Visiton 12-07 RN STARS - Office Visit Diagnoses/Problems Assessed Chlamydia infection (079.98) (A74.9) Screening for STD (sexually transmitted disease) (V74.5) (Z11.3) Orders GC + Chlamydia By Amplified Detection; Status:In Progress - Specimen/Data Collected,Retrospective Authorization; Done: [id number] Provider Impressions Patient is a 26-year-old here [...] AND DRINK ONCE. Vitals Vital Signs Recorded: 91Pot6548 09:02AM Fovthfjv133 Ildxjybpy07 Height5 ft 2 in Ccwdak753 lb 7.14 oz BMI Kgagnxuxlt53.44 kg/m2 BSA Calculated1.77 HXX46Sie0640 Physical Exam Constitutional: Healthy-appearing in no physical distress. Head and Face: No gross lesions. Abdomen: Soft nontender. External genitalia revealed no lesions the vagina revealed moderate amount of blood Musculoskeletal: Good mobility of her extremities. Psychiatric: Appropriately oriented with normal mood and affect. Signatures Electronically signed by : Genoveva Sutton DO; Dec 17 2021 10:13AM EST (Author) Normal [facility] Cult, Genitalon 11-26-2021 Bacteria identified Aer cx Nom (Genital specimen) [facility] [address] Work Phone: GC + Chlamydia By Amplified Detectionon 11-26-2021 C. trachomatis rRNA SUMIT+probe Ql (Unsp spec) Positive Abnormal Negative [facility] and [address] Work Phone: Comment on above: The APTIMA Combo 2 a ssay is FDA-approved for Chlamydia trachomatis and Neisseria gonorrhoeae testing on female endocervical and vaginal swabs, ThinPrep liquid pap samples, male urine samples and urethral swabs. Performance characteristics for Chlamydia trachomatis and Neisseria gonorrhoeae testing on specific pgi-YGD-ujkrdbfo sample types (female urine samples) have been validated by [facility]. This laboratory is certified by CLIA to perform high complexity testing. Samples from all other sites are not validated for this method. N. gonorrhoeae rRNA SUMIT+probe Ql (Unsp spec) Negative Negative [facility] and [address] Work Phone: Comment on above: SOURCE: Urine The AP KATIA Combo 2 assay is FDA-approved for Chlamydia trachomatis and Neisseria gonorrhoeae testing on female endocervical and vaginal swabs, ThinPrep liquid pap samples, male urine samples and urethral swabs. Performance characteristics for Chlamydia trachomatis and Neisseria gonorrhoeae testing on specific zze-TVV-cqhwkdwl sample types (female urine samples) have been validated by [facility]. This laboratory is certified by CLIA to perform high complexity testing. Samples from all other sites are not validated for this method. HIV 1/2 ANTIGEN/ANTIBODY SCR EEN WITH REFLEX TO CONFIRMATIONon 11-26-2021 HIV 1+2 Ab Qn (S) Non-Reactive See Below [facility] and [address] Work Phone: Comment on above: SOURCE: Reference Ra nge: NONREACTIVE HIV Ag/Ab screen is performed using the Siemens Playlore HIV Ag/Ab Combo assay which detects the presence of HIV p24 antigen as well as antibodies to HIV-1 (Group M and O) and HIV-2..No laboratory evidence of HIV infection. If acute HIV infection is suspected, consider testing for HIV RNA by PCR (viral load). HSV TYPE I / II, IGMon 11-26 HSV 1+2 IgM IA Qn (S) 0.78 {IV} <=0.89 [facility] [employer] Work Phone: Comment on above: INTERPRETIVE INFORMA [...] for more than 12 months post-infection.Performed By: [facility] [place] [address] [id number] Director: Carlene Gore MD LMPon 11-26-2021 Last menstrual period start date 13Nov2021 [employer] and [employer] Work Phone: Laboratory - Cytologyon 11-08 Cytology report Cyto stain.thin prep Doc (Cvx/Vag) [facility] Work Phone: No Panel Informationon 11-26 >8.0 Abnormal [facility] Work Phone: Comment on above: POTENTIAL FOR CROSS- REACTIVITY BETWEENHSV I AND HSV II EXISTS.REF VALUESNEGATIVE <0.9EQUIVOCAL >=0.90 <=1.10POSITIVE >1.10 5.0 {INDEX} Abnormal [employer] and [email or web address] Phone: Comment on above: REF VALUESNEGATIVE < 0.9EQUIVOCAL >=0.90 <=1.10POSITIVE >1.10 RN STARS - Office Visiton 06 RN STARS - Office Visit Diagnoses/Problems Assessed Screening for cervical cancer (V76.2) (Z12.4) Colitis, trichomonas (007.3) (A07.8) Infection due to Tritrichomonas species (136.8) (A07.8) Orders HIV 1/2 ANTIGEN/ANTIBODY SCREEN WITH REFLEX TO CONFIRMATION; Status:Active; Requested for:26Nov2021; HSV IgG1 And IgG2 Ab; Status:Active; Requested for:26Nov2021; HSV TYPE I / II, IGM; Status:Active; Requested for:26Nov2021; SYPHILIS SCREENING WITH REFLEX; Status:Active; Requested for:26Nov2021; PAP [employer], Cytology; Status:In Progress - Specimen/Data Collected,Retrospective Authorization; Done: 26Nov2021 Last Menstrual Period (LMP): : 11/13/2021 PAP - Site : CERVICAL Cytology Order : ThinPrep PAP, Screening, HPV Reflex - Include Genotyping Provider Impressions Patient is a 26-year-old who comes in for routine [employer] exam. Pap smear was done. Currently declines contraception since she is not sexually active. Trichomoniasis found on exam. Will treat with Flagyl and will do a full STD panel. Follow-up in 3 weeks for test of cure. Also informed her that her partner needs to be treated. Chief Complaint Patient here today for yearly. Her last pap was 3-4 years ago in [place] that the patient states was normal. She has no concerns. She does not do a self breast exam. LMP:11/13/2021 History of Present IllnessPatient is a 26-year-old who comes in for routine [employer] exam. Patient reports she has not been [...] Weekly Vitals Vital Signs Recorded: 26Nov2021 09:02AM Grviljjb261 Yrsxmavlw91 Height5 ft 2 in Sivcyi697 lb BMI Joctulrkrb15.09 kg/m2 BSA Calculated1.78 [id number] Physical Exam Constitutional: Healthy-appearing woman in no distress. Head and Face: No obvious lesions. Neck: Supple without adenopathy. Cardiovascular: Regular rate and rhythm. Pulmonary: Clear to auscultation. Chest: Breasts were symmetrical with diffuse fibrocystic changes but no discrete masses discharge or retraction. Abdomen: Soft nontender no masses. External genitalia was slightly erythematous. The vagina was well estr (more content not included)... Normal [facility] SYPHILIS SCREENING WITH REFL EXon 11-26-2021 T. pallidum IgG+IgM IA Ql (S) Non-Reactive See Below [facility] and [facility] [address] Work Phone: Comment on above: Reference Range: NON REACTIVENo significant level of Treponema pallidum antibody detected. Repeat testing in 2 to 4 weeks may be considered if early infection or incubating syphilis infection is suspected. Hemoglobin A1Con 11-12-2021 Glucose [Mass/Vol] 266 mg/dL [facility] Work Phone: HbA1c (Bld) [Mass fraction] 10.9 % Abnormal [facility] Work Phone: Comment on above: Diagnosis of Diabete s-Adults Non-Diabetic: < or = 5.6% Increased risk for developing diabetes: 5.7-6.4% Diagnostic of diabetes: > or = 6.5%. Monitoring of Diabetes Age (y) Therapeutic Goal (%) Adults: >18 <7.0 Pediatrics: 13-18 <7.5 7-12 <8.0 0- 6 7.5-8.5 [place] [employer]. Diabetes Care 33(S1), Jun 2009. Laboratory - Chemistry and C hemistry - challengeon 11-12-2021 Anion gap [Moles/Vol] 13 mmol/L 10 - 20 [facility] Work Phone: Calcium [Mass/Vol] 9.4 mg/dL 8.6 - 10.3 [facility] Work Phone: Chloride [Moles/Vol] 105 mmol/L 98 - 107 [facility] Work Phone: CO2 [Moles/Vol] 23 mmol/L 21 - 32 [facility] Work Phone: Creatinine [Mass/Vol] 0.51 mg/dL See Below [facility] Work Phone: Comment on above: Reference Range: 0.5 0 - 1.05 Glucose [Mass/Vol] 96 mg/dL 74 - 99 [facility] Work Phone: Potassium [Moles/Vol] 3.8 mmol/L 3.5 - 5.3 [facility] Work Phone: Sodium [Moles/Vol] 137 mmol/L 136 - 145 [facility] Work Phone: Urea nitrogen [Mass/Vol] 11 mg/dL 6 - 23 [facility] Work Phone: No Panel Informationon 11-12 >90 >90 [facility] Work Phone: Comment on above: CALCULATIONS OF ASCENCION MATED GFR ARE PERFORMED USING THE 2020 CKD-EPI STUDY REFIT EQUATION WITHOUT THE RACE VARIABLE FOR THE IDMS-TRACEABLE CREATININE METHODS.https://jasn.asnjournals.org/content/early// N.4397681916 [facility] Follow-up visit Diagnoses/Problems Seizure-like activity [...] in access program for 3 months 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 working on SSI/SSD due to mental illness has been suicidal recently but is improving lives alone dtr lives grandparents in [place] became homeless August 2021 activity walks and [...] Vital Signs Recorded: 12Nov2021 10:17AM Heart Rate95 Zqknozuq701 Znazbvaeh56 Dnvnrf428.5 cm Oxowbp63.74 kg BMI Lxfuehwxuw94.95 kg/m2 BSA Calculated1.82 Tobacco Usea) Yes PHQ-2 [...] Nov 12 2021 10:47AM EST (Author) Normal Quick Key Tobacco Screening.on Adult depression screening assessment Yes [facility] Work Phone: Tobacco use status CPHS a) Yes [facility] Work Phone: Auth for Release of Medical Recordson 08-07-2021 Auth for Release of Medical Records [id number] D:127 Normal [facility] Lab Reportson 08-06-2021 Lab Reports [id number] D:127 Normal [facility] Family Medicine Office/Clini c Noteon 08-05-2021 Family Medicine Office/Clinic Note Chief Complaint OR SCRUB TECH here for check up. SHe is DM2, asthma. Sees Светлана for psych. History of Present Illness OR SCRUB TECH. 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 Here today requesting [...] trying to wean herself from use. Follows [facility] - feels depression and anxiety has been well controlled with current medication regimen -buspirone and fluoxetine. Also reports history of borderline personality disorder. 2019 - pap smear per patient. [employer] in [place], no longer follows them. OARRS reviewed and [...] and can add years to your life. 8-083-XFPE-NOW or www.smokefree.gov provide access to helpful resources [...] disorder) (F41.1: (more content not included)... Normal [facility] Comment on above: Result Comment: Elec tronically Signed By: Katiana BOYD CNP\Date and Time Signed: 08/05/21 08:57 EST Hemoglobin A1Con 08-05-2021 Glucose [Mass/Vol] 235 mg/dL Normal [facility] Comment on above: Result Comment: The ADA and AACC recommend providing the estimated average glucose result to permit better patient understanding of their HBA1c result. Performed By: #### C JALEEL BELL, TSHX #### [facility] [address] [place], [place] [id number] Three Knife Trimmer: Milly Truong MD #### LIPR, GLYHGB, URNMAB #### [facility] [address] [place] [address] Three Knife Trimmer: Brice Jovel MD HbA1c (Bld) [Mass fraction] 9.8 % High 4.0-6.0 [facility] Comment on above: Performed By: #### C JALEEL BELL, TSHX #### [facility] [address] [place], [place] [phone] Three Knife Trimmer: Milly Truong MD #### LIPRebecca, GLYHGB, URNMAB #### [facility] [address] [place] [address] Three Knife Trimmer: Brice Jovel MD Lipid Profileon 08-04-2021 Cholesterol [Mass/Vol] 252 mg/dL High <200 [facility] Comment on above: Result Comment: Cholesterol Guidelines: <200 Desirable 200-240 Borderline >240 Undesirable Performed By: #### C JALEEL BELL, TSHX #### [facility] [address] [place], [place] [phone] Three Knife Trimmer: Milly Truong MD #### LIPR, GLYHGB, URNMAB #### [facility] [address] [place], [place] [id number] Three Knife Trimmer: Brice Jovel MD Cholesterol in HDL [Mass/Vol] 43 mg/dL Normal >40 [facility] Comment on above: Result Comment: HDL Guidelines: <40 Undesirable 40-59 Borderline >59 Desirable Performed By: #### C JALEEL BELL, TSHX #### [facility] [address] [place] [address] Three Knife Trimmer: Milly Truong MD #### LIPR, GLYHGB, URNMAB #### [facility] [employer] [address] [place] [address] [phone] Three Knife Trimmer: Brice Jovel MD Cholesterol in LDL [Mass/Vol] 180 mg/dL High 0-130 [facility] Comment on above: Result Comment: LDL Guidelines: <100 Desirable 100-129 Near to/above Desirable 130-159 Borderline >159 Undesirable Direct (measured) LDL and calculated LDL are not interchangeable tests. Performed By: #### C JALEEL BELL, TSHX #### [facility] [address] [place] [address] Three Knife Trimmer: Milly Truong MD #### LIPR, GLYHGB, URNMAB #### [facility] [employer] [address] [place] [address] [phone] Three Knife Trimmer: Brice Jovel MD Cholesterol.total/Cho lesterol in HDL [Mass ratio] 5.9 {ratio} High <5 [facility] Comment on above: Performed By: #### C JALEEL BELL, TSHX #### [facility] [address] [place] [phone] Three Knife Trimmer: Milly Truong MD #### LIPRebecca, GLYHGB, URNMAB #### [facility] [employer] [address] [place] [address] [phone] Three Knife Trimmer: Brice Jovel MD Triglyceride [Mass/Vol] 144 mg/dL Normal <150 [facility] Comment on above: Result Comment: Triglyceride Guidelines: <150 Desirable 150-199 Borderline 200-499 High >499 Very high Based on AHA Guidelines for fasting triglyceride, March 2012. Performed By: #### C JALEEL BELL, TSHX #### [facility] [address] [place] [phone] Three Knife Trimmer: Milly Truong MD #### LIPRebecca, GLYHGB, URNMAB #### [place] [address] [place], [place] [phone] Three Knife Trimmer: Brice Jovel MD Microalb.,Random Uron 2021 Creatinine [Mass/Vol] 194.3 mg/dL Normal 28.0-217.[address] [facility] Comment on above: Performed By: #### C DP, CP, TSHX #### [facility] [address] [place] [address] Three Knife Trimmer: Milly Truong MD #### LIPR, GLYHGB, URNMAB #### [place] [address] [place], [place] [id number] Three Knife Trimmer: Brice Jovel MD Microalb/Creat Ratio 20 mcg/mg creat Normal <25 [facility] Comment on above: Performed By: #### C DP, CP, TSHX #### [facility] [address] [place] [phone] Three Knife Trimmer: Milly Truong MD #### LIPR, GLYHGB, URNMAB #### [address] [id number] Three Knife Trimmer: Brice Jovel MD Microalbumin conc. 38 mg/L High <21 [facility] Comment on above: Performed By: #### C DP, CP, TSHX #### [facility] [address] [place] [phone] Three Knife Trimmer: Milly Truong MD #### LIPR, GLYHGB, URNMAB #### [place] [address] [place], [place] [phone] Three Knife Trimmer: Brice Jovel MD CBC with Diffon 08-03-2021 Abs. Basophil 0.00 k/uL Normal 0.0-0.2 [facility] Comment on above: Performed By: #### C DP, CP, TSHX #### [facility] [address] [place] [phone] Three Knife Trimmer: Milly Truong MD #### LIPR, GLYHGB, URNMAB #### [place] [phone] Three Knife Trimmer: Brice Jovel MD Abs.Neutrophil (Seg) 5.40 k/uL Normal 2.5-7.0 [facility] Comment on above: Performed By: #### C DP, CP, TSHX #### [facility] [address] [place] [phone] Three Knife Trimmer: Milly Truong MD #### LIPR, GLYHGB, URNMAB #### [place] [phone] Three Knife Trimmer: Brice Jovel MD Auto Diff Performed YES Normal [facility] Comment on above: Performed By: #### C DP, CP, TSHX #### [facility] [address] [place] [phone] Three Knife Trimmer: Milly Troung MD #### LIPR, GLYHGB, URNMAB #### [place] [phone] Three Knife Trimmer: Brice Jovel MD Basophils/100 WBC (Bld) 0 % Normal 0-2 [facility] Comment on above: Performed By: #### C DP, CP, TSHX #### [facility] [address] [place] [address] Three Knife Trimmer: Milly Truong MD #### LIPR, GLYHGB, URNMAB #### [place] [phone] [employer] Knife Trimmer: Brice Jovel MD Eosinophils (Bld) [#/Vol] 0.20 10*3/uL Normal 0.0-0.4 [facility] Comment on above: Performed By: #### C DP, CP, TSHX #### [facility] [address] [place], [place] [phone] Three Knife Trimmer: Milly Truong MD #### LIPR, GLYHGB, URNMAB #### [place] [address] [place], [place] [phone] Three Knife Trimmer: Brice Jovel MD Eosinophils/100 WBC (Bld) 2 % Normal 0-5 [facility] Comment on above: Performed By: #### C DP, CP, TSHX #### [facility] [address] [place], [place] [phone] Three Knife Trimmer: Milly Truong MD #### LIPR, GLYHGB, URNMAB #### [address] [phone] Three Knife Trimmer: Brice Jovel MD Erythrocyte distribution width (RBC) [Ratio] 12.2 % Normal 12.1-15.2 [facility] Comment on above: Performed By: #### C DP, CP, TSHX #### [facility] [address] [place], [place] [phone] Three Knife Trimmer: Milly Truong MD #### LIPRebecca, GLYHGB, URNMAB #### [address] [phone] [employer] Kn[employer] Trimmer: Brice Jovel MD Hematocrit (Bld) [Volume fraction] 45.6 % Normal 36-46 [facility] Comment on above: Performed By: #### C DP, CP, TSHX #### [facility] [address] [place], [place] [phone] Three Knife Trimmer: Milly Truong MD #### LIPR, GLYHGB, URNMAB #### [address] [phone] [employer] Knife Trimmer: Brice Jovel MD Hemoglobin (Bld) [Mass/Vol] 15.9 g/dL Normal 12.0-16.0 [facility] Comment on above: Performed By: #### C DP, CP, TSHX #### [facility] [address] [place], [place] [phone] Three Knife Trimmer: Milly Truong MD #### LIPR, GLYHGB, URNMAB #### [place] [address] [place], [place] [phone] Three Knife Trimmer: Brice Jovel MD Lymphocytes (Bld) [#/Vol] 2.50 10*3/uL Normal 1.0-4.8 [facility] Comment on above: Performed By: #### C DP, CP, TSHX #### [facility] [address] [place] [address] Three Knife Trimmer: Milly Truong MD #### LIPR, GLYHGB, URNMAB #### [address] [phone] [employer] Kn[employer] Trimmer: Brice Jovel MD Lymphocytes/100 WBC (Bld) 30 % Normal 15-40 [facility] Comment on above: Performed By: #### C DP, CP, TSHX #### [facility] [address] [place] [address] Three Knife Trimmer: Milly Truong MD #### LIPR, GLYHGB, URNMAB #### [address] [phone] Three Knife Trimmer: Brice Jovel MD MCH (RBC) [Entitic mass] 29.1 pg Normal 26-34 [facility] Comment on above: Performed By: #### C DP, CP, TSHX #### [facility] [address] [place] [address] Three Knife Trimmer: Milly Truong MD #### LIPR, GLYHGB, URNMAB #### [address] [phone] Three Knife Trimmer: Brice Jovel MD MCHC (RBC) [Mass/Vol] 34.8 g/dL Normal 31-37 [facility] Comment on above: Performed By: #### C JALEEL BELL, TSHX #### [facility] [address] [place] [address] Three Knife Trimmer: Milly Truong MD #### LIPR, GLYHGB, URNMAB #### [address] [id number] Three Knife Trimmer: Brice Jovel MD MCV (RBC) [Entitic vol] 83.8 fL Normal 80-100 [facility] Comment on above: Performed By: #### C JALEEL BELL, TSHX #### [facility] [address] [place] [address] Three Knife Trimmer: Milly Truong MD #### LIPR, GLYHGB, URNMAB #### [address] [phone] Three Knife Trimmer: Brice Jovel MD Monocytes (Bld) [#/Vol] 0.20 10*3/uL Normal 0.0-1.0 [facility] Comment on above: Performed By: #### C JALEEL BELL, TSHX #### [facility] [address] [place] [address] Three Knife Trimmer: Milly Truong MD #### LIPR, GLYHGB, URNMAB #### [address] [address] Three Knife Trimmer: Brice Jovel MD Monocytes/100 WBC (Bld) 2 % Low 4-8 [facility] Comment on above: Performed By: #### C JALEEL BELL, TSHX #### [facility] [address] [place] [id number] Three Knife Trimmer: Milly Truong MD #### LIPR, GLYHGB, URNMAB #### [address] [address] Three Knife Trimmer: Brice Jovel MD Neutrophil (Seg) 66 % Normal 47-75 [facility] Comment on above: Performed By: #### C DP, CP, TSHX #### [facility] [address] [place] [address] Three Knife Trimmer: Milly Truong MD #### LIPR, GLYHGB, URNMAB #### [facility] [address] [place] [address] Three Knife Trimmer: Brice Jovel MD Platelets (Bld) [#/Vol] 306 10*3/uL Normal 140-450 [facility] Comment on above: Performed By: #### C DP, CP, TSHX #### [facility] [address] [place] [address] Three Knife Trimmer: Milly Truong MD #### LIPR, GLYHGB, URNMAB #### [facility] [address] [place] [address] Three Knife Trimmer: Brice Jovel MD RBC (Bld) [#/Vol] 5.45 10*6/uL High 4.0-5.2 [facility] Comment on above: Performed By: #### C DP, CP, TSHX #### [facility] [address] [place] [address] Three Knife Trimmer: Milly Truong MD #### LIPR, GLYHGB, URNMAB #### [facility] [address] [place] [address] Three Knife Trimmer: Brice Jovel MD WBC (Bld) [#/Vol] 8.3 10*3/uL Normal 3.5-11.0 [facility] Comment on above: Performed By: #### C DP, CP, TSHX #### [facility] [address] [place], [place] [phone] Three Knife Trimmer: Milly Truong MD #### LIPR, GLYHGB, URNMAB #### [address] [place], [place] [phone] Three Knife Trimmer: Brice Jovel MD Comp Metabolic Profon 2021 (cont.) Normal [facility] Comment on above: Result Comment: Aver age GFR for 20-29 years old: 116 mL/min/1.73sq m Chronic Kidney Disease: <60 mL/min/1.73sq m Kidney failure: <15 mL/min/1.73sq m eGFR calculated using average adult body mass. Additional eGFR calculator available at: http://www.SoundFocus.Repka.com/multiple_crcl_2011.htm Performed By: #### C JALEEL BELL, TSHX #### [facility] [address] [place], [place] [phone] Three Knife Trimmer: Milly Truong MD #### LIPRebecca, GLYHGB, URNMAB #### [address] [address] Three Knife Trimmer: Brice Jovel MD Albumin [Mass/Vol] 4.3 g/dL Normal 3.5-5.2 [facility] Comment on above: Performed By: #### C JALEEL BELL, TSHX #### [facility] [address] [place], [place] [phone] Three Knife Trimmer: Milly Truong MD #### JAIMEE GLYHGB, URNMAB #### [address] [place], [place] [id number] Three Knife Trimmer: Brice Jovel MD Alkaline Phos 106 U/L High 35-104 [facility] Comment on above: Performed By: #### C JALEEL BELL, TSHX #### [facility] [address] [place], [place] [phone] Three Knife Trimmer: Milly Truong MD #### LIPRebecca, GLYHGB, URNMAB #### [address], [place] [phone] Three Knife Trimmer: Brice Jovel MD ALT [Catalytic activity/Vol] 19 U/L Normal 5-33 [facility] Comment on above: Performed By: #### C DP, CP, TSHX #### [facility] [address] [place], [place] [phone] Three Knife Trimmer: Milly Truong MD #### LIPR, GLYHGB, URNMAB #### [address] [place], [place] [id number] Three Knife Trimmer: Brice Jovel MD Anion gap [Moles/Vol] 13 mmol/L Normal 9-17 [facility] Comment on above: Performed By: #### C DP, CP, TSHX #### [facility] [address] [place], [place] [phone] Three Knife Trimmer: Milly Truong MD #### LIPR, GLYHGB, URNMAB #### [address] [phone] Three Knife Trimmer: Brice Jovel MD AST [Catalytic activity/Vol] 12 U/L Normal <32 [facility] Comment on above: Performed By: #### C DP, CP, TSHX #### [facility] [address] [place], [place] [id number] Three Knife Trimmer: Milly Truong MD #### LIPR, GLYHGB, URNMAB #### [address] [place], [place] 0755608 Three Knife Trimmer: Brice Jovel MD Bilirubin [Mass/Vol] 0.37 mg/dL Normal 0.30-1.20 [facility] Comment on above: Performed By: #### C DP, CP, TSHX #### [facility] [address] [place], [place] [phone] Three Knife Trimmer: Milly Truong MD #### LIPR, GLYHGB, URNMAB #### [facility] [address] [place] [address] Three Knife Trimmer: Brice Jovel MD BUN/CRE Ratio 17 Normal 9-20 [facility] Comment on above: Performed By: #### C DP, CP, TSHX #### [facility] [address] [place], [place] [phone] Three Knife Trimmer: Milly Truong MD #### LIPR, GLYHGB, URNMAB #### [address] [phone] Three Knife Trimmer: Brice Jovel MD Calcium [Mass/Vol] 9.4 mg/dL Normal 8.6-10.4 [facility] Comment on above: Performed By: #### C DP, CP, TSHX #### [facility] [address] [place], [place] [phone] Three Knife Trimmer: Milly Truong MD #### LIPR, GLYHGB, URNMAB #### [address] [phone] Three Knife Trimmer: Brice Jovel MD Chloride [Moles/Vol] 94 mmol/L Low 98-107 [facility] Comment on above: Performed By: #### C DP, CP, TSHX #### [facility] [address] [place], [place] [phone] Three Knife Trimmer: Milly Truong MD #### LIPR, GLYHGB, URNMAB #### [address] [phone] Three Knife Trimmer: Brice Jovel MD CO2 [Moles/Vol] 26 mmol/L Normal 20-31 [facility] Comment on above: Performed By: #### C DP, CP, TSHX #### [facility] [address] [place], [place] [phone] Three Knife Trimmer: Milly Truong MD #### LIPR, GLYHGB, URNMAB #### [address] [place], [place] [phone] Three Knife Trimmer: Brice Jovel MD Creatinine [Mass/Vol] 0.52 mg/dL Normal 0.50-0.90 [facility] Comment on above: Performed By: #### C DP, CP, TSHX #### [facility] [address] [place] [phone] Three Knife Trimmer: Milly Troung MD #### LIPR, GLYHGB, URNMAB #### [address] [place], [place] [phone] Three Knife Trimmer: Brice Jovel MD GFR, Amer >60 Normal >60 [facility] Comment on above: Performed By: #### C DP, CP, TSHX #### [facility] [address] [place] [phone] Three Knife Trimmer: Milly Truong MD #### LIPR, GLYHGB, URNMAB #### [address] [place], [place] [phone] Three Knife Trimmer: Brice Jovel MD GFR,non Amer >60 Normal >60 [facility] Comment on above: Performed By: #### C DP, CP, TSHX #### [facility] [address] [place] [phone] Three Knife Trimmer: Milly Truong MD #### LIPR, GLYHGB, URNMAB #### [address] [place], [place] [phone] Three Knife Trimmer: Brice Jovel MD Glucose [Mass/Vol] 291 mg/dL High 70-99 [facility] Comment on above: Performed By: #### C DP, CP, TSHX #### [facility] [address] [place] [address] Three Knife Trimmer: Milly Truong MD #### LIPR, GLYHGB, URNMAB #### [address] [phone] Three Knife Trimmer: Brice Jovel MD Potassium [Moles/Vol] 3.7 mmol/L Normal 3.7-5.3 [facility] Comment on above: Performed By: #### C DP, CP, TSHX #### [facility] [address] [place] [address] Three Knife Trimmer: Milly Truong MD #### LIPR, GLYHGB, URNMAB #### [place] [phone] Three Knife Trimmer: Brice Jovel MD Protein [Mass/Vol] 8.0 g/dL Normal 6.4-8.3 [facility] Comment on above: Performed By: #### C DP, CP, TSHX #### [facility] [address] [place] [phone] Three Knife Trimmer: Milly Truong MD #### LIPRebecca, GLYHGB, URNMAB #### [place] [phone] Three Knife Trimmer: Brice Jovel MD Sodium [Moles/Vol] 133 mmol/L Low 135-144 [facility] Comment on above: Performed By: #### C DP, CP, TSHX #### [facility] [address] [place] [phone] Three Knife Trimmer: Milly Truong MD #### LIPR, GLYHGB, URNMAB #### [place] [phone] Three Knife Trimmer: Brice Jovel MD Urea nitrogen [Mass/Vol] 9 mg/dL Normal 6-20 [facility] Comment on above: Performed By: #### C DP, CP, TSHX #### [facility] [address] [place] [address] Three Knife Trimmer: Milly Truong MD #### LIPR, GLYHGB, URNMAB #### [facility] [address] [place] [address] Three Knife Trimmer: Brcie Jovel MD TSH w/reflex to FT4on 2021 TSH Qn 0.65 m[IU]/L Normal 0.30-5.00 [facility] Comment on above: Performed By: #### C DP, CP, TSHX #### [facility] [address] [place] [address] Three Knife Trimmer: Milly Truong MD #### JAIMEE, GLYHGJo, URNMAB #### [facility] [employer] [address] [place] [address] Three Knife Trimmer: Brice Jovel MD Patient Educationon 08-02-19 Patient [...] plan? Your health care provider or certified athletic trainer can help you make a plan for [...] ? Your health care provider or certified athletic trainer can help you make a plan for [...] Document Reviewe (more content not included)... Normal [facility] Blood Pressure Cuff Sizeon 0 01-04-2021 Fall risk assessment a) No falls within the last year [facility] Work Phone: Tobacco use status CPHS a) Yes [facility] Work Phone: Blood Pressure Cuff Size Adult [facility] Work Phone: Blood Pressure Cuff Size Yes [facility] Work Phone: Blood Pressure Cuff Sizeon 0 11-02-2020 Fall risk assessment a) No falls within the last year [facility] Work Phone: Tobacco use status CPHS a) Yes [facility] Work Phone: Blood Pressure Cuff Size Adult [facility] Work Phone: Blood Pressure Cuff Size a) Yes [facility] Work Phone: Acetaminophen Level, Serumon 10-23-2020 Acetaminophen [Mass/Vol] ug/mL See Below [facility] Work Phone: Comment on above: Reference Range: 10. 0 - 30.0 Acetylsalicylic Acid Level, Serumon 10-23-2020 Salicylates [Mass/Vol] mg/dL 4 - 20 [facility] Work Phone: Alcohol, Serumon 10-23-2020 Ethanol [Mass/Vol] mg/dL [facility] Work Phone: Comment on above: FOR MEDICAL USE ONLY . .REF VALUES <10 Complete Blood Count + Diffe rentialon 10-23-2020 Basophils/100 WBC (Bld) 0.8 % 0.0 - 2.0 [facility] Work Phone: Erythrocyte distribution width (RBC) [Ratio] 12.7 % See Below [facility] Work Phone: Comment on above: Reference Range: 11. 5 - 14.5 Hematocrit (Bld) [Volume fraction] 44.6 % See Below [facility] Work Phone: Comment on above: Reference Range: 36. 0 - 46.0 Hemoglobin (Bld) [Mass/Vol] 15.2 g/dL See Below [facility] Work Phone: Comment on above: Reference Range: 12. 0 - 16.0 Lymphocytes/100 WBC (Bld) 23.6 % See Below [facility] Work Phone: Comment on above: Reference Range: 13. 0 - 44.0 MCHC (RBC) [Mass/Vol] 34.0 g/dL See Below [facility] Work Phone: Comment on above: Reference Range: 32. 0 - 36.0 MCV (RBC) [Entitic vol] 85 fL 80 - 100 [facility] Work Phone: Monocytes/100 WBC (Bld) 4.5 % 2.0 - 10.0 [facility] Work Phone: Neutrophils/100 WBC (Bld) 70.1 % See Below [facility] Work Phone: Comment on above: Reference Range: 40. 0 - 80.0 Platelets (Bld) [#/Vol] 245 10*3/uL 150 - 450 [facility] Work Phone: RBC (Bld) [#/Vol] 5.24 {x10E12/L} above high threshold See Below [facility] Work Phone: Comment on above: Reference Range: 4.0 0 - 5.20 WBC (Bld) [#/Vol] 9.7 10*3/uL 4.4 - 11.3 [facility] Work Phone: Complete Blood Count + Differential 0.10 {x10E9/L} See Below [facility] Work Phone: Comment on above: Reference Range: 0.0 0 - 0.10 Reference Range: 0.0 0 - 0.70 Complete Blood Count + Differential 0.40 {x10E9/L} See Below [facility] Work Phone: Comment on above: Reference Range: 0.1 0 - 1.00 Complete Blood Count + Differential 2.30 {x10E9/L} See Below [facility] Work Phone: Comment on above: Reference Range: 1.2 0 - 4.80 Complete Blood Count + Differential 6.80 {x10E9/L} See Below [facility] Work Phone: Comment on above: Reference Range: 1.2 0 - 7.70 Percent differential counts (%) should be interpreted in the context of the absolute cell counts (cells/L). Complete Blood Count + Differential 1.0 % 0.0 - 6.0 [facility] Work Phone: Coronavirus 2019 RNA by PCR, [facility] 10-23-2020 Coronavirus 2019 RNA by PCR, Symptomatic Not detected Normal See Below [facility] Work Phone: Comment on above: SOURCE: Nasal, Nasop haryngealReference Range: Not Detected.This test has received FDA Emergency Use Authorization (EUA) and has been verified by [facility]. This test is only authorized for the duration of time that circumstances exist to justify the authorization of the emergency use of in vitro diagnostic tests for the detection of SARS-CoV-2 virus and/or diagnosis of COVID-19 infection under section 564(b)(1) of the Act, 21 U.S.C. 360bbb-3(b)(1), unless the authorization is terminated or revoked sooner. [facility] is certified under CLIA-88 as qualified to perform high complexity testing. Testing is performed in the [facility] laboratory located at [address] [place] [address].SARS-CoV-2/Flu/RSV Multiplex Test: Fact sheet for providers: https://www.fda.gov/media/318196/downloadFact sheet for patients: https://www.fda.gov/media/652078/download Laboratory - Chemistry and C hemistry - challengeon 10-23-2020 Albumin BCP dye [Mass/Vol] 4.1 g/dL 3.4 - 5.0 [facility] Work Phone: ALP [Catalytic activity/Vol] 107 U/L 33 - 110 [facility] Work Phone: ALT With P-5'-P [Catalytic activity/Vol] 26 U/L 7 - 45 [facility] Work Phone: Comment on above: Patients treated wit h Sulfasalazine may generate falsely decreased results for ALT. Anion gap [Moles/Vol] 13 mmol/L 10 - 20 [facility] Work Phone: AST With P-5'-P [Catalytic activity/Vol] 14 U/L 9 - 39 [facility] Work Phone: Bilirubin [Mass/Vol] 0.4 mg/dL 0.0 - 1.2 [facility] Work Phone: Calcium [Mass/Vol] 9.4 mg/dL 8.6 - 10.3 [facility] Work Phone: Chloride [Moles/Vol] 98 mmol/L 98 - 107 [facility] Work Phone: CO2 [Moles/Vol] 26 mmol/L 21 - 32 [facility] Work Phone: Creatinine [Mass/Vol] 0.54 mg/dL See Below [facility] Work Phone: Comment on above: Reference Range: 0.5 0 - 1.05 Glucose [Mass/Vol] 345 mg/dL above high threshold 74 - 99 [facility] Work Phone: Potassium [Moles/Vol] 4.0 mmol/L 3.5 - 5.3 [facility] Work Phone: Protein [Mass/Vol] 7.5 g/dL 6.4 - 8.2 [facility] Work Phone: Sodium [Moles/Vol] 133 mmol/L below low threshold 136 - 145 [facility] Work Phone: Urea nitrogen [Mass/Vol] 8 mg/dL 6 - 23 [facility] Work Phone: Laboratory - Drug toxicology on 10-23-2020 Amphetamines Screen Ql (U) Negative NEGATIVE [facility] Work Phone: Comment on above: CUTOFF LEVEL: 500 NG /ML Cross-reactivity has been reported with high concentrations of the following drugs: buproprion, chloroquine, chlorpromazine, ephedrine, mephentermine, fenfluramine, phentermine, phenylpropanolamine, pseudoephedrine, and propranolol. Barbiturates Screen Ql (U) Negative NEGATIVE [facility] Work Phone: Comment on above: CUTOFF LEVEL: 200 NG /ML Benzodiazepines Ql (U) Negative NEGATIVE [facility] Work Phone: Comment on above: CUTOFF LEVEL: 200 NG /ML Benzoylecgonine Screen Ql (U) Negative NEGATIVE [facility] Work Phone: Comment on above: CUTOFF LEVEL: 150 NG /ML Cannabinoids Screen Ql (U) Negative NEGATIVE [facility] Work Phone: Comment on above: CUTOFF LEVEL: 50 NG/ ML Methadone Screen Ql (U) Negative NEGATIVE [facility] Work Phone: Comment on above: CUTOFF LEVEL: 150 NG /ML The metabolite C-hfide-obiyyvzgvseqmk (LAAM) is not detected by this method in concentrations that would be found in the urine of patients on LAAM therapy. Opiates Screen Ql (U) Negative NEGATIVE [facility] Work Phone: Comment on above: CUTOFF LEVEL: 300 NG /ML The opiate screen does not detect fentanyl, meperidine, or tramadol. Oxycodone is not consistently detected (refer to Oxycodone Screen, Urine result). oxyCODONE+oxyMORphone Screen Ql (U) Negative NEGATIVE [facility] Work Phone: Comment on above: CUTOFF LEVEL: 100 NG /ML This test will accurately detect both oxycodone and oxymorphone. Phencyclidine Ql (U) Negative NEGATIVE [facility] Work Phone: Comment on above: CUTOFF LEVEL: 25 NG/ ML Cross-reactivity has been reported with dextromethorphan. No Panel Informationon 10-23 >60 >60 [facility] Work Phone: Comment on above: CALCULATIONS OF ASCENCION MATED GFR ARE PERFORMED USING THE MDRD STUDY EQUATION FOR THE IDMS-TRACEABLE CREATININE METHODS. CLIN CHEM 2007;53:766-72 SEE BELOW [facility] Work Phone: Comment on above: Drug screen results are presumptive and should not be used to assess compliance with prescribed medication. Contact the performing [facility] laboratory to add-on definitive confirmatory testing if [...] 10-23-2020 XR Chest Single view Normal [facility] Work Phone: Urinalysison 10-23-2020 Color (U) Straw See Below [facility] Work Phone: Comment on above: Reference Range: STR AW,YELLOW Glucose Ql (U) >=500(3+) Abnormal NEGATIVE [facility] Work Phone: Ketones Ql (U) 5(TRACE) Abnormal NEGATIVE [facility] Work Phone: Leukocyte esterase Test strip Ql (U) MODERATE(2+) Abnormal NEGATIVE [facility] Work Phone: pH (U) 5.0 [pH] 5.0 - 8.0 [facility] Work Phone: Protein (U) [Mass/Vol] Negative NEGATIVE [facility] Work Phone: RBC (U) [#/Vol] Negative NEGATIVE [facility] Work Phone: Specific gravity (U) [Rel density] 1.037 1 above high threshold See Below [facility] Work Phone: Comment on above: Reference Range: 1.0 05 - 1.035 Urinalysis Negative NEGATIVE [facility] Work Phone: Comment on above: CUTOFF LEVEL: 1 NG/M L The performance characteristics of this test have been determined by the individual laboratory site where testing is performed. This test has not been cleared or approved by the FDA; however, the FDA has determined that such clearance is not necessary. Urinalysis <2.0 0.0 - 1.9 [facility] Work Phone: Urinalysis HAZY CLEAR [facility] Work Phone: Urinalysis, Microscopicon Urinalysis, Microscopic 5 {/HPF} [facility] Work Phone: Urinalysis, Microscopic None 0-5 [facility] Work Phone: Urinalysis, Microscopic 19 {/HPF} Abnormal 0-5 [facility] Work Phone: EEG (STANDARD)on 07-19-2020 Srini Medina MD 07/19/2020 4:43 PM [facility] EEG Report Reason for EEG: Spells [...] epileptiform discharges or ictal activity was seen. [facility] COVID-19, MOLECULARon 2019 SARS-COV-2 RNA (JANIS) Not Detected Normal Not Detected [facility] Comment on above: Result Comment: This test [...] at the following links: For Healthcare Providers: https://www.fda.gov/media/002478/download For Patients: https://www.fda.gov/media/319768/download Performed By: #### L [id number] #### [facility] [address] [address] Regulo Hazel M.D. [id number] Hemoglobin A1Con 01-31-2020 HbA1c (Bld) [Mass fraction] 8.2 % [facility] Work Phone: Comment on above: Diagnosis of Diabete s-Adults Non-Diabetic: < or = 5.6% Increased risk for developing diabetes: 5.7-6.4% Diagnostic of diabetes: > or = 6.5%. Monitoring of Diabetes Age (y) Therapeutic Goal (%) Adults: >18 <7.0 Pediatrics: 13-18 <7.5 7-12 <8.0 0- 6 7.5-8.5 [place] [employer]. Diabetes Care 33(S1), Jun 2009. HbA1c (Bld) [Mass fraction] 189 {MG/DL} [facility] Work Phone: Sedimentation Rateon 020 ESR (Bld) [Velocity] 19 mm/h [facility] Interpretation and review of laboratory results Normal [facility] Complete Blood Count + Diffe rentialon 09-28-2019 Basophils (Bld) [#/Vol] 0.10 {x10E9/L} See Below [facility] Work Phone: Comment on above: Reference Range: 0.0 0 - 0.10 Basophils/100 WBC (Bld) 0.8 % 0.0 - 2.0 [facility] Work Phone: Eosinophils (Bld) [#/Vol] 0.20 {x10E9/L} See Below [facility] Work Phone: Comment on above: Reference Range: 0.0 0 - 0.70 Eosinophils/100 WBC (Bld) 2.1 % 0.0 - 6.0 [facility] Work Phone: Erythrocyte distribution width (RBC) [Ratio] 12.7 % See Below [facility] Work Phone: Comment on above: Reference Range: 11. 5 - 14.5 Hematocrit (Bld) [Volume fraction] 42.0 % See Below [facility] Work Phone: Comment on above: Reference Range: 36. 0 - 46.0 Hemoglobin (Bld) [Mass/Vol] 14.4 g/dL See Below [facility] Work Phone: Comment on above: Reference Range: 12. 0 - 16.0 Lymphocytes (Bld) [#/Vol] 2.20 {x10E9/L} See Below [facility] Work Phone: Comment on above: Reference Range: 1.2 0 - 4.80 Lymphocytes/100 WBC (Bld) 29.7 % See Below [facility] Work Phone: Comment on above: Reference Range: 13. 0 - 44.0 MCHC (RBC) [Mass/Vol] 34.4 g/dL See Below [facility] Work Phone: Comment on above: Reference Range: 32. 0 - 36.0 MCV (RBC) [Entitic vol] 87 fL 80 - 100 [facility] Work Phone: Monocytes (Bld) [#/Vol] 0.40 {x10E9/L} See Below [facility] Work Phone: Comment on above: Reference Range: 0.1 0 - 1.00 Monocytes/100 WBC (Bld) 5.2 % 2.0 - 10.0 [facility] Work Phone: Neutrophils (Bld) [#/Vol] 4.70 {x10E9/L} See Below [facility] Work Phone: Comment on above: Reference Range: 1.2 0 - 7.70 Percent differential counts (%) should be interpreted in the context of the absolute cell counts (cells/L). Neutrophils/100 WBC (Bld) 62.2 % See Below [facility] Work Phone: Comment on above: Reference Range: 40. 0 - 80.0 Platelets (Bld) [#/Vol] 263 {x10E9/L} 150 - 450 [facility] Work Phone: RBC (Bld) [#/Vol] 4.85 {x10E12/L} See Below [facility] Work Phone: Comment on above: Reference Range: 4.0 0 - 5.20 WBC (Bld) [#/Vol] 0.1 {/100_WBC} [facility] Work Phone: WBC (Bld) [#/Vol] 7.5 {x10E9/L} 4.4 - 11.3 [facility] Work Phone: HCG, Beta Quantitativeon HCG.beta subunit Qn m[IU]/mL [facility] Work Phone: Comment on above: Low-level [...] performed using a different test methodology at [facility] than other [facility]. Direct result comparison should only be made within the same method. REF VALUESNON FEMALE <5MALES <5 Hemoglobin A1Con 09-28-2019 HbA1c (Bld) [Mass fraction] 7.2 % [facility] Work Phone: Comment on above: Diagnosis of Diabete s-Adults Non-Diabetic: < or = 5.6% Increased risk for developing diabetes: 5.7-6.4% Diagnostic of diabetes: > or = 6.5%. Monitoring of Diabetes Age (y) Therapeutic Goal (%) Adults: >18 <7.0 Pediatrics: 13-18 <7.5 7-12 <8.0 0- 6 7.5-8.5 [place] [employer]. Diabetes Care 33(S1), Jun 2009. HbA1c (Bld) [Mass fraction] 160 {MG/DL} [facility] Work Phone: Metabolic Panelon 09-28-2019 Anion gap [Moles/Vol] 11 mmol/L 10 - 20 [facility] Work Phone: Calcium [Mass/Vol] 9.6 mg/dL 8.6 - 10.3 [facility] Work Phone: Chloride [Moles/Vol] 104 mmol/L 98 - 107 [facility] Work Phone: CO2 [Moles/Vol] 26 mmol/L 21 - 32 [facility] Work Phone: Creatinine [Mass/Vol] 0.65 mg/dL See Below [facility] Work Phone: Comment on above: Reference Range: 0.5 0 - 1.05 Glucose [Mass/Vol] 252 mg/dL above high threshold 74 - 99 [facility] Work Phone: Potassium [Moles/Vol] 3.8 mmol/L 3.5 - 5.3 [facility] Work Phone: Sodium [Moles/Vol] 137 mmol/L 136 - 145 [facility] Work Phone: Urea nitrogen [Mass/Vol] 14 mg/dL 6 - 23 [facility] Work Phone: Otheron 09-28-2019 >60 >60 [facility] Work Phone: Comment on above: CALCULATIONS OF ASCENCION MATED GFR ARE PERFORMED USING THE MDRD STUDY EQUATION FOR THE IDMS-TRACEABLE CREATININE METHODS. CLIN CHEM 2007;[id number] Thyroidon 09-28-2019 TSH Qn 0.54 {mIU/L} See Below [facility] Work Phone: Comment on above: Reference Range: 0.4 4 - 3.98 Note new pediatric reference range as of 08/12/2019. TSH testing is performed using different testing methodology at [facility] than at other [facility]. Direct result comparisons should only be made within the same method. HCG, Beta Quantitativeon HCG.beta subunit Qn m[IU]/mL [facility] and [address] Work Phone: Comment on above: Low-level positive [...] performed using a different test methodology at [facility] than other [facility]. Direct result comparison should only be made within the same method. REF VALUESNON FEMALE <5MALES <5 IO HCG, Urine Test on 05-13-2019 HCG ( test) Ql (U) Negative [facility] and [address] Work Phone: Comment on above: MEDLINE [id number] P 10/06/2020 URINALYSISon 03-21-2019 Bacteria Auto Ql (U) None Seen None Se en /hpf [facility] Bil[facility] Ql (U) Negative [facility] th Clarity Refractometry automated (U) Hazy Abnormal Clear [facility] Color (U) Yellow Colorless, Yellow [facility] Epithelial cells.squamous Auto (Urine sed) [#/Area] 4 [facility] Glucose Auto test strip (U) [Mass/Vol] Negative Negative mg/dL [facility] Hemoglobin Auto test strip Ql (U) Negative Negative [facility] Interpretation and review of laboratory results Abnormal [facility] Ketones (U) [Mass/Vol] Negative Negative mg/dL [facility] Leukocyte esterase Auto test strip Ql (U) Trace Abnormal Negative [facility] Mucus Auto (Urine sed) [#/Area] Rare None Seen, Rare /lpf [facility] Nitrite Auto test strip Ql (U) Negative Negative [facility] pH (U) 6.0 [pH] [facility] Protein (U) [Mass/Vol] Negative Negative mg/dL [facility] RBC Auto (Urine sed) [#/Area] <1 [facility] Specific gravity (U) [Rel density] 1.020 [facility] Spermatozoa Auto (Urine sed) [#/Area] Present Abnormal None Seen /hpf [facility] Urobilinogen (U) [Mass/Vol] >=4.0 Abnormal <2.0 mg/dL [facility] WBC Auto (Urine sed) [#/Area] 1 [facility] Microscopic examinat ion is performed on all urinalysis samples and only positive findings are reported. The test for blood on the chemical analytic portion of urinalysis may also be positive due to hemoglobinuria and myoglobinuria and if red blood cells are present they are quantified by microscopic examination. [facility] hCG, Blood,QUALitativeon Beta HCG ( test) Ql Negative Negative [facility] Interpretation and review of laboratory results Normal [facility] Negative: The result is less than or equal to 5 mIU/mL of HCG. [facility] Alcohol, Medicalon 9 Ethanol [Mass/Vol] mg/dL <10.00 mg/dL [facility] Interpretation and review of laboratory results Normal [facility] DRUGS OF ABUSE SCREEN, URINE on 03-11-2019 Amphetamines Ql (U) None Detected None Detected [facility] Comment on above: Urine Amphetamine Cu toff: < 1000 ng/mL = None Detected Barbiturates Screen Ql (U) None Detected None Detected [facility] Comment on above: Urine Barbiturates C utoff: < 200 ng/mL = None Detected Benzodiazepines Ql (U) None Detected None Detected [facility] Comment on above: Urine Benzodiazepine Cutoff: < 200 ng/mL = None Detected Cannabinoids Screen Ql (U) None Detected None Detected [facility] Comment on above: Urine Cannabinoids C utoff: < 50 ng/mL = None Detected Cocaine Ql (U) None Detected None Detected [facility] Comment on above: Urine Cocaine Cutoff : < 300 ng/mL = None Detected Interpretation and review of laboratory results Normal [facility] Methadone Screen Ql (U) None Detected None Detected [facility] Comment on above: Urine Methadone Cuto ff: < 300 ng/mL = None Detected Opiates Screen Ql (U) None Detected None Detected [facility] Comment on above: Urine Opiates Cutoff : < 300 ng/mL = None Detected Oxycodone Ql (U) None Detected None Detected [facility] Comment on above: Urine Oxycodone Cuto ff: < 100 ng/mL = None Detected Screen results shoul d be used for treatment purposes only. [facility] Otheron 03-11-2019 Extra Tube Hold for add-ons. [facility] Comment on above: Auto resulted. URINALYSISon 03-11-2019 Bacteria Auto Ql (U) None Seen None Se en /hpf [facility] Bilirubin Ql (U) Negative Negative [facility] th Clarity Refractometry automated (U) Hazy Abnormal Clear [facility] Color (U) Yellow Colorless, Yellow [facility] Epithelial cells.squamous Auto (Urine sed) [#/Area] 6 High [facility] Glucose Auto test strip (U) [Mass/Vol] Negative Negative mg/dL [facility] Hemoglobin Auto test strip Ql (U) Negative Negative [facility] Interpretation and review of laboratory results Abnormal [facility] Ketones (U) [Mass/Vol] Trace Abnormal Negative mg/dL [facility] Leukocyte esterase Auto test strip Ql (U) Negative Negative [facility] Mucus Auto (Urine sed) [#/Area] Few Abnormal None Seen, Rare /lpf [facility] Nitrite Auto test strip Ql (U) Negative Negative [facility] pH (U) 5.0 [pH] [facility] Protein (U) [Mass/Vol] Negative Negative mg/dL [facility] RBC Auto (Urine sed) [#/Area] 2 [facility] Specific gravity (U) [Rel density] 1.029 High [facility] Transitional cells Computer assisted (U) [#/Area] <1 [facility] Urobilinogen (U) [Mass/Vol] 2.0 mg/dL Abnormal <2.0 [facility] WBC Auto (Urine sed) [#/Area] 2 [facility] Microscopic examinat ion is performed on all urinalysis samples and only positive findings are reported. The test for blood on the chemical analytic portion of urinalysis may also be positive due to hemoglobinuria and myoglobinuria and if red blood cells are present they are quantified by microscopic examination. [facility] Urine Pregnancyon 03-11-2019 HCG ( test) Ql (U) Negative Negative [facility] Interpretation and review of laboratory results Normal [facility] Alcohol, Medicalon 9 Ethanol [Mass/Vol] mg/dL <10.00 mg/dL [facility] Interpretation and review of laboratory results Normal [facility] DRUGS OF ABUSE SCREEN, URINE on 02-10-2019 Amphetamines Ql (U) None Detected None Detected [facility] Comment on above: Urine Amphetamine Cu toff: < 1000 ng/mL = None Detected Barbiturates Screen Ql (U) None Detected None Detected [facility] Comment on above: Urine Barbiturates C utoff: < 200 ng/mL = None Detected Benzodiazepines Ql (U) None Detected None Detected [facility] Comment on above: Urine Benzodiazepine Cutoff: < 200 ng/mL = None Detected Cannabinoids Screen Ql (U) None Detected None Detected [facility] Comment on above: Urine Cannabinoids C utoff: < 50 ng/mL = None Detected Cocaine Ql (U) None Detected None Detected [facility] Comment on above: Urine Cocaine Cutoff : < 300 ng/mL = None Detected Interpretation and review of laboratory results Normal [facility] Methadone Screen Ql (U) None Detected None Detected [facility] Comment on above: Urine Methadone Cuto ff: < 300 ng/mL = None Detected Opiates Screen Ql (U) None Detected None Detected [facility] Comment on above: Urine Opiates Cutoff : < 300 ng/mL = None Detected Oxycodone Ql (U) None Detected None Detected [facility] Comment on above: Urine Oxycodone Cuto ff: < 100 ng/mL = None Detected Screen results shoul d be used for treatment purposes only. [facility] Otheron 02-10-2019 Extra Tube Hold for add-ons. [facility] Comment on above: Auto resulted. Urine Pregnancyon 02-10-2019 HCG ( test) Ql (U) Negative Negative [facility] Interpretation and review of laboratory results Normal [facility] Hemoglobin A1con 01-01-2019 HbA1c (Bld) [Mass fraction] 7.1 % High 4.3-5.6 [facility] Comment on above: Performed By: #### H BA #### [facility] Routine Lab [address], [place] [address] HbA1c (Bld) [Mass fraction] 157 mg/dL Normal [facility] Comment on above: Performed By: #### H BA1C #### [facility] Routine Lab [address] [place] [address] URINALYSISon 10-07-2018 Bacteria Auto Ql (U) Rare Abnormal None Se en /hpf [facility] Bilirubin Ql (U) Negative Negative [facility] th Clarity Refractometry automated (U) Hazy Abnormal Clear [facility] Color (U) Yellow Colorless, Yellow [facility] Epithelial cells.squamous Auto (Urine sed) [#/Area] 8 High [facility] Glucose Auto test strip (U) [Mass/Vol] 150 Abnormal Negative mg/dL [facility] Hemoglobin Auto test strip Ql (U) Negative Negative [facility] Interpretation and review of laboratory results Abnormal [facility] Ketones (U) [Mass/Vol] >=80 Abnormal Negative mg/dL [facility] Leukocyte esterase Auto test strip Ql (U) Small Abnormal Negative [facility] Nitrite Auto test strip Ql (U) Negative Negative [facility] pH (U) 5.0 [pH] [facility] Protein (U) [Mass/Vol] Negative Negative mg/dL [facility] RBC Auto (Urine sed) [#/Area] 2 [facility] Specific gravity (U) [Rel density] 1.014 [facility] Urobilinogen (U) [Mass/Vol] <2.0 <2.0 mg/dL [facility] WBC Auto (Urine sed) [#/Area] 17 High [facility] Microscopic examinat ion is performed on all urinalysis samples and only positive findings are reported. The test for blood on the chemical analytic portion of urinalysis may also be positive due to hemoglobinuria and myoglobinuria and if red blood cells are present they are quantified by microscopic examination. [facility] Urine Pregnancyon 10-07-2018 HCG ( test) Ql (U) Negative Negative [facility] Interpretation and review of laboratory results Normal [facility] XR CHEST AP/PA AND LATon Cholesterol [Mass/Vol] 1. No acute cardiopulmonary process. 2. Cholecystectomy. [facility]c Workstation ID: [id number] [facility] EXAMINATION: XR CHES T AP/PA AND [...] abnormality noted. The gallbladder is surgically absent. [facility], Rad In [facility] - 10/07/2018 2:37 AM EDT EXAMINATION: XR [...] 1. No acute cardiopulmonary process. 2. Cholecystectomy. S/[facility] Workstation ID: [id number] [facility] POC Glucoseon 10-06-2018 Glucose [Mass/Vol] 228 mg/dL High 65 - 99 mg/dL [facility] Interpretation and review of laboratory results Abnormal [facility] POC Glucoseon 10-05-2018 Glucose [Mass/Vol] 338 mg/dL High 65 - 99 mg/dL [facility] Interpretation and review of laboratory results Abnormal [facility] Glucose [Mass/Vol] 383 mg/dL High 65 - 99 mg/dL [facility] Interpretation and review of laboratory results Abnormal [facility] XR CHEST AP/PA AND LATon No acute cardiopulmonary disease. [facility]/c Workstation ID: [id number] [facility] CLINICAL HISTORY: Shortness of breath. EXAMINATION: PA AND LATERAL CHEST: 10/04/2018. COMPARISON: PA and lateral chest 03/29/2016. FINDINGS: Two views in 3 films are provided which demonstrate there is some motion artifact on the AP view chest. The visualized osseous structures, heart, mediastinum are normal. The aorta has normal contour. Lungs appear clear. There is no congestive heart failure or pneumothorax. [facility] Rad In [facility] - 10/05/2018 1:48 AM EDT CLINICAL HISTORY: [...] or pneumothorax. IMPRESSION: No acute cardiopulmonary disease. [facility] Workstation ID: [id number] [facility] Beta-Hydroxybutyrateon 10-04 Beta hydroxybutyrate [Moles/Vol] 0.2 mmol/L 0 - 0.3 mmol/L [facility] Interpretation and review of laboratory results Normal [facility] CBC WITH AUTO DIFFERENTIALon 10-04-2018 Basophils (Bld) [#/Vol] 0.04 10*3/uL [facility] Basophils/100 WBC (Bld) 0.4 % [facility] Eosinophils (Bld) [#/Vol] 0.23 10*3/uL [facility] Eosinophils/100 WBC (Bld) 2.6 % [facility] Erythrocyte distribution width (RBC) [Entitic vol] 12.2 % 11.6 - 14.8 % [facility] Hematocrit (Bld) [Volume fraction] 42.3 % 36 - 46 % [facility] Hemoglobin (Bld) [Mass/Vol] 14.5 g/dL 12 - 16 g/dL [facility] Immature granulocytes (Bld) [#/Vol] 0.03 10*3/uL [facility] Immature granulocytes/100 WBC (Bld) 0.30 % [facility] Comment on above: The IG parameter is the percentage of metamyelocytes, myelocytes, and promyelocytes. Lymphocytes (Bld) [#/Vol] 1.76 10*3/uL [facility] Lymphocytes/100 WBC (Bld) 19.8 % [facility] MCH (RBC) [Entitic mass] 28.3 pg 26 - 34 pg [facility] MCHC (RBC) [Mass/Vol] 34.3 g/dL 31 - 37 g/dL [facility] MCV (RBC) [Entitic vol] 82.6 fL 80 - 100 fL [facility] Monocytes (Bld) [#/Vol] 0.47 10*3/uL [facility] Monocytes/100 WBC (Bld) 5.3 % [facility] Neutrophils (Bld) [#/Vol] 6.37 10*3/uL [facility] Neutrophils/100 WBC (Bld) 71.6 % [facility] Nucleated RBC (Bld) [#/Vol] 0.00 10*3/uL [facility] Nucleated RBC/100 WBC (Bld) [Ratio] 0.0 % [facility] Platelet mean volume (Bld) [Entitic vol] 10.4 fL 9 - 15.5 fL [facility] Platelets (Bld) [#/Vol] 248 10*3/uL [facility] RBC (Bld) [#/Vol] 5.12 10*6/uL [facility] WBC (Bld) [#/Vol] 8.90 10*3/uL [facility] Comprehensive Metabolic Pane saleem 10-04-2018 Albumin [Mass/Vol] 4.0 g/dL 3.2 - 5.2 g/dL [facility] ALP [Catalytic activity/Vol] 90 U/L 40 - 140 U/L [facility] ALT [Catalytic activity/Vol] 28 U/L 14 - 65 U/L [facility] Anion gap [Moles/Vol] 12 mmol/L 10 - 2 0 mmol/L [facility] AST [Catalytic activity/Vol] 14 U/L 0 - 45 U/L [facility] Bilirubin [Mass/Vol] 0.3 mg/dL 0 - 1.3 mg/dL [facility] Calcium [Mass/Vol] 9.0 mg/dL 8.4 - 10. 2 mg/dL [facility] Chloride [Moles/Vol] 102 mmol/L 98 - 10 8 mmol/L [facility] Creatinine [Mass/Vol] 0.86 mg/dL 0.4 - 1.1 mg/dL [facility] GFR/1.73 sq M predicted among non-blacks MDRD (S/P/Bld) [Vol rate/Area] The eGFR should be used for monitoring renal function only and not for medication dosing. [facility] GFR/1.73 sq M.predicted CKD-EPI (S/P/Bld) [Vol rate/Area] 96 >=60 mL/min/1.73 m2 [facility] Glucose [Mass/Vol] 460 mg/dL Critically high 65 - 9 9 mg/dL [facility] HCO3 [Moles/Vol] 26 mmol/L 21 - 32 mmol/L [facility] Potassium [Moles/Vol] 4.1 mmol/L 3.5 - 5.1 mmol/L [facility] Protein [Mass/Vol] 8.0 g/dL 6 - 8 g/dL [facility] Sodium [Moles/Vol] 136 mmol/L 135 - 145 mmol/L [facility] Urea nitrogen [Mass/Vol] 14 mg/dL 8 - 25 mg/dL [facility] Urea nitrogen/Creatinine [Mass ratio] 16.3 mg/mg [facility] D-DIMER, QUANTITATIVEon 09-08 Fibrin D-dimer FEU (PPP) [Mass/Vol] 0.31 0.27 - 0.49 mcg/mL FEU [facility] Interpretation and review of laboratory results Normal [facility] A D-dimer concentrat ion of <0.5 micrograms per milliliter FEU is considered a low probability for pulmonary embolus (PE) and deep venous thrombosis (DVT). Results of this test should always be interpreted in conjunction with the patient's medical history,clinical presentation, and other findings. Clinical diagnosis should not be based on the results of the D-dimer alone. [facility] Otheron 10-04-2018 Extra Tube Hold for add-ons. [facility] Comment on above: Auto resulted. Interpretation and review of laboratory results Abnormal [facility] POC ARTERIAL BLOOD GAS PANEL -PULM - RALSon 10-04-2018 Alveolar-arterial oxygen Partial pressure difference 16.2 mm Hg [facility] Base excess Calc (Bld) [Moles/Vol] -0.9 mmol/L [facility] Breath rate setting Ventilator synchronized intermittent mandatory 0 [facility] CO2 (Bld) [Partial pressure] 39.4 mm[Hg] [facility] HCO3 (Bld) [Moles/Vol] 24.0 mmol/L 22 - 26 mmol/L [facility] Hematocrit (BldA) [Volume fraction] 44.4 % 36 - 46 % [facility] Hemoglobin (Bld) [Mass/Vol] 14.5 g/dL 12 - 16 g/dL [facility] Inhaled oxygen concentration 21 % [facility] Oxygen (Bld) [Partial pressure] 83 mm[Hg] [facility] pH (Bld) 7.39 [pH] [facility] SaO2% (BldA) [Mass fraction] 96.8 % 92 - 99 % [facility] Specimen source Nom (Unsp spec) Brachial, right [facility] Tidal volume setting Ventilator 0 [facility] POC Glucoseon 10-04-2018 Glucose [Mass/Vol] 377 mg/dL High 65 - 99 mg/dL [facility] Interpretation and review of laboratory results Abnormal [facility] Glucose [Mass/Vol] 442 mg/dL Critically high 65 - 9 9 mg/dL [facility] Interpretation and review of laboratory results Abnormal [facility] Critical result acte d upon time of test. Test performed at bedside. [facility] URINALYSISon 10-04-2018 Bacteria Auto Ql (U) None Seen None Se en /hpf [facility] Bilirubin Ql (U) Negative Negative [facility] th Clarity Refractometry automated (U) Clear Clear [facility] Color (U) Colorless Colorless, Yellow [facility] Epithelial cells.squamous Auto (Urine sed) [#/Area] 4 [facility] Glucose Auto test strip (U) [Mass/Vol] >=500 Abnormal Negative mg/dL [facility] Hemoglobin Auto test strip Ql (U) Negative Negative [facility] Ketones (U) [Mass/Vol] Negative Negative mg/dL [facility] Leukocyte esterase Auto test strip Ql (U) Negative Negative [facility] Nitrite Auto test strip Ql (U) Negative Negative [facility] pH (U) 7.0 [pH] [facility] Protein (U) [Mass/Vol] Negative Negative mg/dL [facility] RBC Auto (Urine sed) [#/Area] <1 [facility] Specific gravity (U) [Rel density] 1.018 [facility] Urobilinogen (U) [Mass/Vol] <2.0 <2.0 mg/dL [facility] WBC Auto (Urine sed) [#/Area] 1 [facility] Microscopic examinat ion is performed on all urinalysis samples and only positive findings are reported. The test for blood on the chemical analytic portion of urinalysis may also be positive due to hemoglobinuria and myoglobinuria and if red blood cells are present they are quantified by microscopic examination. [facility] Urine Pregnancyon 10-04-2018 HCG ( test) Ql (U) Negative Negative [facility] Interpretation and review of laboratory results Normal [facility] BETA HCG, QUANT, BLOODon HCG.beta subunit Qn 0.00 m[IU]/mL MIU/ML [facility] Comment on above: [facility] INTERPRETIVE RANGES: NON FEMALE 0-6 MIU/ML [...] PLATELETon 2018 ABSOLUTE BASOPHIL COUNT 0.1 X10 [facility] Basophils/100 WBC (Bld) 0.6 % 0 - 2 % [facility] Differential cell count method Nom (Bld) AUTO DIFF % [facility] Eosinophils #/vol (Bld) 0.30 10*3/uL X10 [facility] Eosinophils/100 WBC (Bld) 3.9 % 0 - 11 % [facility] Erythrocyte distribution width Ratio (RBC) 12.9 % 11.5 - 14.5 % [facility] Hematocrit Volume Fraction (Bld) 44.2 % 36 - 48 % [facility] Hemoglobin mass conc (Bld) 15.7 g/dL [facility] Lymphocytes #/vol (Bld) 3.30 10*3/uL X10 [facility] Lymphocytes/100 WBC (Bld) 36.9 % 20 - 55 % [facility] MCH Entitic mass (RBC) 29.1 pg 26 - 35 PG [facility] MCHC mass conc (RBC) 35.5 g/dL [facility] MCV Entitic volume (RBC) 82.2 fL [facility] Monocytes #/vol (Bld) 0.5 10*3/uL X10 [facility] Monocytes/100 WBC (Bld) 5.5 % 0 - 10 % [facility] Neutrophils #/vol (Bld) 4.7 10*3/uL [facility] Neutrophils/100 WBC (Bld) 53.1 % 37 - 75 % [facility] Platelet mean volume Entitic volume (Bld) 8.0 fL [facility] Platelets #/vol (Bld) 272 10*3/uL [facility] RBC #/vol (Bld) 5.38 10*6/uL [facility] WBC #/vol (Bld) 8.9 10*3/uL [facility]OL[facility] Saleem 09-12-2018 Albumin mass conc 4.4 G/dl 3.5 - 5 G/dl [facility] Albumin/Globulin mass ratio 1.3 {ratio} [facility] ALP enzyme act/vol 77 U/L [facility] ALT enzyme act/vol 29 U/L [facility] AST enzyme act/vol 19 U/L [facility] Bilirubin mass conc 0.7 mg/dL [facility] Calcium mass conc 9.2 mg/dL [facility] Chloride molar conc 102 mmol/L [facility] CO2 molar conc 23 mmol/L [facility] Creatinine mass conc 0.6 mg/dL [facility] GFR/1.73 sq M predicted among blacks MDRD vol rate/area (S/P/Bld) mL/min/{1.73_m2} ml/min/1.73s q.m [facility] GFR/1.73 sq M predicted among non-blacks MDRD vol rate/area (S/P/Bld) mL/min/{1.73_m2} ml/min/1.73s q.m [facility] GFR/1.73 sq M predicted among non-blacks MDRD vol rate/area (S/P/Bld) Average GFR for 20-29 years old = 116. [facility] Comment on above: Chronic Kidney disea se, GFR = <60. Kidney failure, GFR = <15. The GFR estimate is not adjusted for extreme body surface area or acute process, nor has it been validated for women or ethnic groups other than and . Glucose fasting mass conc 301 mg/dL High [facility] Comment on above: NORMAL <100 mg/dL PREDIABETES 101-126 mg/dL DIABETES 126 mg/dL or higher Interpretation and review of laboratory results Abnormal [facility] Potassium molar conc 3.7 mmol/L [facility] Protein mass conc 7.8 g/dL [facility] Sodium molar conc 135 mmol/L Low [facility] Urea nitrogen mass conc 17 mg/dL [facility] HCG QUALITATIVE, URINEon HCG ( test) Ql (U) Negative NEGATIVE [facility] POCT GLUCOSEon 09-12-2018 Glucose mass conc 247 mg/dL Abnormal 70 - 99 mg/dL [facility] Interpretation and review of laboratory results Abnormal [facility] URINALYSIS, MACROon 09-13-19 19 Bilirubin Ql (U) Negative NEGATIVE [facility] Clarity Nom (U) [facility]AR [facility] Color Nom (U) YELLOW YELLOW [facility] Glucose Test strip mass conc (U) 500 mg/dl Abnormal NEGATIVE [facility] Hemoglobin Ql (U) Negative NEGATIVE [facility] Interpretation and review of laboratory results Abnormal [facility] Ketones mass conc (U) 15 mg/dl Abnormal NEGATIVE [facility] Leukocyte esterase Test strip Ql (U) Negative NEGATIVE [facility] Nitrite Ql (U) Negative NEGATIVE [facility] pH (U) 5.5 [pH] [facility] Protein Ql (U) Negative NEGATIVE mg/dl [facility] Specific gravity Relative Density (U) 1.020 [facility] Urobilinogen mass conc (U) 0.2 mg/dl 0.2 - 1 mg/dl [facility] URINE MICROSCOPICon 09-13-19 19 Bacteria LM.HPF #/area (Urine sed) Negative NEGATIVE [facility] Casts LM.LPF #/area (Urine sed) NONE NONE /LPF [facility] Crystals LM Nom (Urine sed) NONE NONE [facility] Epithelial cells LM Ql (Urine sed) 5 TO 10 /HPF [facility] Mucus Ql (Urine sed) Negative NEGATIVE [facility] RBC LM.HPF #/area (Urine sed) Negative NEGATIVE /HPF [facility] Urine sediment comments LM Jorge (Urine sed) CULTURE CRITERIA NOT MET, NO CULTURE PERFORMED. [facility] WBC LM.HPF #/area (Urine sed) Negative NEGATIVE /HPF [facility] Beta Hydroxybutyrateon 07-16 Beta Hydroxybutyrate 0.2 mmol/L Normal 0.00-0.30 [facility] Comment on above: Performed By: #### C BCDIF, HCGQT, LIPASE, CMET, BHBA #### Unless otherwise noted, all testing performed by [place] [address] CLIA: [id number] [employer] Pool Installer: Cristofer Orlando, M.D. CBC with Diffon 07-16-2018 Basophils #/vol (Bld) 0.1 K/mcL Normal 0-0.2 [facility] Comment on above: Performed By: #### C BCDIF, HCGQT, LIPASE, CMET, BHBA #### Unless otherwise noted, all testing performed by [place] [address] CLIA: [id number] Swimming Pool Installer: Cristofer Perry M.D. Basophils/100 WBC (Bld) 1.0 % Normal [facility] Comment on above: Performed By: #### C BCDIF, HCGQT, LIPASE, CMET, BHBA #### Unless otherwise noted, all testing performed by [place] [address] CLIA: [id number] Swimming [employer] Installer: Cristofer Perry M.D. Eosinophils #/vol (Bld) 0.1 K/mcL Normal 0-0.5 [facility] Comment on above: Performed By: #### C BCDIF, HCGQT, LIPASE, CMET, BHBA #### Unless otherwise noted, all testing performed by [place] [address] CLIA: [id number] Swimming Pool Installer: Cristofer Perry M.D. Eosinophils/100 WBC (Bld) 1.1 % Normal [facility] Comment on above: Performed By: #### C BCDIF, HCGQT, LIPASE, CMET, BHBA #### Unless otherwise noted, all testing performed by [place] [address] CLIA: [id number] Swimming Pool Installer: Cristofer Perry M.D. Erythrocyte distribution width Ratio (RBC) 13.6 % Normal 10.0-14.4 [facility] Comment on above: Performed By: #### C BCDIF, HCGQT, LIPASE, CMET, BHBA #### Unless otherwise noted, all testing performed by [place] [address] CLIA: [id number] Swimming Pool Installer: Cristofer Perry M.D. Hematocrit Volume Fraction (Bld) 47.6 % High 34.4-44.8 [facility] Comment on above: Performed By: #### C BCDIF, HCGQT, LIPASE, CMET, BHBA #### Unless otherwise noted, all testing performed by [place] [address] CLIA: [id number] Swimming Pool Installer: Cristofer Perry M.D. Hemoglobin mass conc (Bld) 16.3 g/dL High 11.6-15.4 [facility] Comment on above: Performed By: #### C BCDIF, HCGQT, LIPASE, CMET, BHBA #### Unless otherwise noted, all testing performed by [place] [address] CLIA: [id number] Swimming Pool Installer: Cristofer Perry M.D. Lymphocytes #/vol (Bld) 2.3 K/mcL Normal 1.0-3.7 [facility] Comment on above: Performed By: #### C BCDIF, HCGQT, LIPASE, CMET, BHBA #### Unless otherwise noted, all testing performed by [place] [address] CLIA: [id number] Swimming Pool Installer: Cristofer Perry M.D. Lymphocytes/100 WBC (Bld) 29.8 % Normal [facility] Comment on above: Performed By: #### C BCDIF, HCGQT, LIPASE, CMET, BHBA #### Unless otherwise noted, all testing performed by [place] [address] CLIA: [id number] Swimming Pool Installer: Cristofer Perry M.D. MCH Entitic mass (RBC) 27.5 pg Low 27.9-33.9 [facility] Comment on above: Performed By: #### C BCDIF, HCGQT, LIPASE, CMET, BHBA #### Unless otherwise noted, all testing performed by [place] [address] CLIA: [id number] Swimming Pool Installer: Cristofer Perry M.D. MCHC mass conc (RBC) 34.1 g/dL Normal 33.1-35.1 [facility] Comment on above: Performed By: #### C BCDIF, HCGQT, LIPASE, CMET, BHBA #### Unless otherwise noted, all testing performed by [place] [address] CLIA: [id number] Swimming Pool Installer: Cristofer Perry M.D. MCV Entitic volume (RBC) 80.7 fL Low 82.6-98.9 [facility] Comment on above: Performed By: #### C BCDIF, HCGQT, LIPASE, CMET, BHBA #### Unless otherwise noted, all testing performed by [place] [address] CLIA: [id number] Swimming [employer] Installer: Cristofer Perry M.D. Monocytes #/vol (Bld) 0.5 K/mcL Normal 0.1-0.6 [facility] Comment on above: Performed By: #### C BCDIF, HCGQT, LIPASE, CMET, BHBA #### Unless otherwise noted, all testing performed by [place] [address] CLIA: [id number] Swimming Pool Installer: Cristofer Perry M.D. Monocytes/100 WBC (Bld) 6.3 % Normal [facility] Comment on above: Performed By: #### C BCDIF, HCGQT, LIPASE, CMET, BHBA #### Unless otherwise noted, all testing performed by [place] [address] CLIA: [id number] Swimming Pool Installer: Cristofer Perry M.D. Neutrophils #/vol (Bld) 4.7 K/mcL Normal 1.2-6.9 [facility] Comment on above: Performed By: #### C BCDIF, HCGQT, LIPASE, CMET, BHBA #### Unless otherwise noted, all testing performed by [place] [address] CLIA: [id number] Swimming Pool Installer: Cristofer Perry M.D. Platelet mean volume Entitic volume (Bld) 8.3 fL Normal 7.0-10.6 [facility] Comment on above: Performed By: #### C BCDIF, HCGQT, LIPASE, CMET, BHBA #### Unless otherwise noted, all testing performed by [place] [address] CLIA: [id number] Swimming Pool Installer: Cristofer Perry M.D. Platelets #/vol (Bld) 243 K/mcL Normal 162-402 [facility] Comment on above: Performed By: #### C BCDIF, HCGQT, LIPASE, CMET, BHBA #### Unless otherwise noted, all testing performed by [place] [address] CLIA: [id number] Swimming Pool Installer: Cristofer Perry M.D. RBC #/vol (Bld) 5.90 M/mcL High 3.7-5.0 [facility] Comment on above: Performed By: #### C BCDIF, HCGQT, LIPASE, CMET, BHBA #### Unless otherwise noted, all testing performed by [place] [address] CLIA: [id number] Swimming Pool Installer: Cristofer Perry M.D. Segmented Neut % 61.8 % Normal [facility] Comment on above: Performed By: #### C BCDIF, HCGQT, LIPASE, CMET, BHBA #### Unless otherwise noted, all testing performed by [place] [phone] CLIA: [id number] Swimming Pool Installer: Cristofer Perry M.D. WBC #/vol (Bld) 7.6 K/mcL Normal 3.4-10.6 [facility] Comment on above: Performed By: #### C BCDIF, HCGQT, LIPASE, CMET, BHBA #### Unless otherwise noted, all testing performed by [place] [address] CLIA: [id number] Swimming Pool Installer: Cristofer Perry M.D. CT ABDO,PELVIS IV CONTRAST O FIDELYon 07-16-2018 CT ABDO,PELVIS IV CONTRAST ONLY Final Report Accession No: [id number] Performed: Jul 16 2018 4:33PM Examination: [...] WAYNE M.D. Trans: dcarr : cc: Normal [facility] Comprehensive Metabolic Pane saleem 07-16-2018 Albumin mass conc 4.2 g/dL Normal 3.2-5.2 [facility] Comment on above: Performed By: #### C BCDIF, HCGQT, LIPASE, CMET, BHBA #### Unless otherwise noted, all testing performed by [place] [address] CLIA: [id number] Swimming Pool Installer: Cristofer Perry M.D. ALP enzyme act/vol 113 U/L Normal 40-140 [facility] Comment on above: Performed By: #### C BCDIF, HCGQT, LIPASE, CMET, BHBA #### Unless otherwise noted, all testing performed by [place] [address] CLIA: [id number] Swimming Pool Installer: Cristofer Perry M.D. ALT enzyme act/vol 39 U/L Normal 14-65 [facility] Comment on above: Result Comment: This test result might be falsely depressed or falsely elevated on samples drawn from patients taking Sulfasalazine and Sulfapyridine. Venipuncture should occur prior to taking either of these drugs. Performed By: #### C BCDIF, HCGQT, LIPASE, CMET, BHBA #### Unless otherwise noted, all testing performed by [place] [address] CLIA: [id number] Swimming Pool Installer: Cristofer Perry M.D. AST enzyme act/vol 12 U/L Normal 0-45 [facility] Comment on above: Result Comment: This test result might be falsely depressed or falsely elevated on samples drawn from patients taking Sulfasalazine and Sulfapyridine. Venipuncture should occur prior to taking either of these drugs. Performed By: #### C BCDIF, HCGQT, LIPASE, CMET, BHBA #### Unless otherwise noted, all testing performed by [place] [address] CLIA: [id number] Swimming Pool Installer: Cristofer Perry M.D. Bilirubin mass conc 0.7 mg/dL Normal 0.3-1.2 [facility] Comment on above: Performed By: #### C BCDIF, HCGQT, LIPASE, CMET, BHBA #### Unless otherwise noted, all testing performed by [place] [address] CLIA: [id number] Swimming Pool Installer: Cristofer Perry M.D. Calcium mass conc 9.7 mg/dL Normal 8.4-10.2 [facility] Comment on above: Performed By: #### C BCDIF, HCGQT, LIPASE, CMET, BHBA #### Unless otherwise noted, all testing performed by [place] [address] CLIA: [id number] Swimming Pool Installer: Cristofer Perry M.D. Chloride molar conc 103 mmol/L Normal 98-108 [facility] Comment on above: Performed By: #### C BCDIF, HCGQT, LIPASE, CMET, BHBA #### Unless otherwise noted, all testing performed by [place] [address] CLIA: [id number] Swimming Pool Installer: Cristofer Perry M.D. CO2 molar conc 25 mmol/L Normal 21-32 [facility] Comment on above: Performed By: #### C BCDIF, HCGQT, LIPASE, CMET, BHBA #### Unless otherwise noted, all testing performed by [place] [address] CLIA: [id number] Swimming Pool Installer: Cristofer Perry M.D. Creatinine mass conc 0.90 mg/dL Normal 0.40-1.10 [facility] Comment on above: Performed By: #### C BCDIF, HCGQT, LIPASE, CMET, BHBA #### Unless otherwise noted, all testing performed by [place] [address] CLIA: [id number] Swimming Pool Installer: Cristofer Perry M.D. GFR/1.73 sq M predicted among blacks MDRD vol rate/area (S/P/Bld) mL/min/{1.73_m2} [facility] Comment on above: Result Comment: Afri can [place] GFR Calc Performed By: #### C BCDIF, HCGQT, LIPASE, CMET, BHBA #### Unless otherwise noted, all testing performed by [place] [address] CLIA: [id number] Swimming Pool Installer: Cristofer Perry M.D. GFR/1.73 sq M predicted among non-blacks MDRD vol rate/area (S/P/Bld) mL/min/{1.73_m2} [facility] Comment on above: Result Comment: Non- [...] noted, all testing performed by [place] [address] CLIA: [id number] Swimming Pool Installer: Cristofer Perry M.D. Glucose mass conc 367 mg/dL High 70-99 [facility] Comment on above: Result Comment: This test result might be falsely depressed or falsely elevated on samples drawn from patients taking Sulfasalazine and Sulfapyridine. Venipuncture should occur prior to taking either of these drugs. Performed By: #### C BCDIF, HCGQT, LIPASE, CMET, BHBA #### Unless otherwise noted, all testing performed by [place] [address] CLIA: [id number] Swimming Pool Installer: Cristofer Perry M.D. Potassium molar conc 3.6 mmol/L Normal 3.5-5.1 [facility] Comment on above: Performed By: #### C BCDIF, HCGQT, LIPASE, CMET, BHBA #### Unless otherwise noted, all testing performed by [place] [address] CLIA: [id number] Swimming Pool Installer: Cristofer Perry M.D. Protein mass conc 8.4 g/dL High 6.0-8.0 [facility] Comment on above: Performed By: #### C BCDIF, HCGQT, LIPASE, CMET, BHBA #### Unless otherwise noted, all testing performed by [place] [address] CLIA: [id number] Swimming Pool Installer: Cristofer Perry M.D. Sodium molar conc 140 mmol/L Normal 135-145 [facility] Comment on above: Performed By: #### C BCDIF, HCGQT, LIPASE, CMET, BHBA #### Unless otherwise noted, all testing performed by [place] [address] CLIA: [id number] Swimming Pool Installer: Cristofer Perry M.D. Urea nitrogen mass conc 7 mg/dL Low 8-25 [facility] Comment on above: Performed By: #### C BCDIF, HCGQT, LIPASE, CMET, BHBA #### Unless otherwise noted, all testing performed by [place] [phone] CLIA: [id number] Swimming Pool Installer: Cristofer Perry M.D. Lipaseon 07-16-2018 Lipase enzyme act/vol 83 U/L Normal 73-393 [facility] Comment on above: Performed By: #### C BCDIF, HCGQT, LIPASE, CMET, BHBA #### Unless otherwise noted, all testing performed by [place] [address] CLIA: [id number] Swimming Pool Installer: Cristofer Perry M.D. Test,Urine Qualon 07-16-2018 HCG.beta subunit ( test) Ql (U) Negative Normal Negative [facility] Comment on above: Result Comment: Rapi [...] noted, all testing performed by [place] [address] CLIA: [id number] Swimming Pool Installer: Cristofer Perry M.D. Urinalysis, Routineon 2018 Bilirubin,Urine Negative Normal NEG;NEGATIVE [facility] Comment on above: Performed By: #### C BCDIF, HCGQT, LIPASE, CMET, BHBA #### Unless otherwise noted, all testing performed by [place] [address] CLIA: [id number] Swimming Pool Installer: Cristofer Perry M.D. Blood,Urine Negative Normal NEG;NEGATIVE [facility] Comment on above: Performed By: #### C BCDIF, HCGQT, LIPASE, CMET, BHBA #### Unless otherwise noted, all testing performed by [place] [address] CLIA: [id number] Swimming Pool Installer: Cristofer Perry M.D. Character Nom (U) Hazy Normal [facility] Comment on above: Performed By: #### C BCDIF, HCGQT, LIPASE, CMET, BHBA #### Unless otherwise noted, all testing performed by [place] [address] CLIA: [id number] Swimming Pool Installer: Cristofer Perry M.D. Color Nom (U) Yellow Normal [facility] Comment on above: Performed By: #### C BCDIF, HCGQT, LIPASE, CMET, BHBA #### Unless otherwise noted, all testing performed by [place] [address] CLIA: [id number] Swimming Pool Installer: Cristofer Perry M.D. Glucose Ql (U) >= 500 High < 70 [facility] Comment on above: Performed By: #### C BCDIF, HCGQT, LIPASE, CMET, BHBA #### Unless otherwise noted, all testing performed by [place] [address] CLIA: [id number] Swimming Pool Installer: Cristofer Perry M.D. Ketone,Urine Trace Abnormal NEG;NEGATIVE [facility] Comment on above: Performed By: #### C BCDIF, HCGQT, LIPASE, CMET, BHBA #### Unless otherwise noted, all testing performed by [place] [phone] CLIA: [id number] Swimming Pool Installer: Cristofer Perry M.D. Leuk.Esterase,Urine Trace Abnormal Negative [facility] Comment on above: Performed By: #### C BCDIF, HCGQT, LIPASE, CMET, BHBA #### Unless otherwise noted, all testing performed by [place] [phone] CLIA: [id number] Swimming Pool Installer: Cristofer Perry M.D. Nitrite,Urine Negative Normal NEG;NEGATIVE [facility] Comment on above: Performed By: #### C BCDIF, HCGQT, LIPASE, CMET, BHBA #### Unless otherwise noted, all testing performed by [place] [phone] CLIA: [id number] Swimming Pool Installer: Cristofer Perry M.D. pH (U) 6.0 [pH] Normal 4.5-8.0 [facility] Comment on above: Performed By: #### C BCDIF, HCGQT, LIPASE, CMET, BHBA #### Unless otherwise noted, all testing performed by [place] [address] CLIA: [id number] Swimming Pool Installer: Cristofer Perry M.D. Protein mass conc (U) Negative Normal NEG;NEGATIVE O [facility] Comment on above: Performed By: #### C BCDIF, HCGQT, LIPASE, CMET, BHBA #### Unless otherwise noted, all testing performed by [place] [phone] CLIA: [id number] Swimming Pool Installer: Cristofer Perry M.D. RBC LM.HPF #/area (Urine sed) /[HPF] Normal 0-5 [facility] Comment on above: Performed By: #### C BCDIF, HCGQT, LIPASE, CMET, BHBA #### Unless otherwise noted, all testing performed by [place] [phone] CLIA: [id number] Swimming Pool Installer: Cristofer Perry M.D. Specific [place],Urine 1.036 High 1.003-1.029 [facility] Comment on above: Performed By: #### C BCDIF, HCGQT, LIPASE, CMET, BHBA #### Unless otherwise noted, all testing performed by [place] [address] CLIA: [id number] Swimming Pool Installer: Cristofer Perry M.D. Squamous Epithelial 4 /HPF Normal 0-40 [facility] Comment on above: Performed By: #### C BCDIF, HCGQT, LIPASE, CMET, BHBA #### Unless otherwise noted, all testing performed by [address] [place], [place] [address] CLIA: [id number] Swimming Pool Installer: Cristofer Perry M.D. Urobilinogen,Urine < 2.0 Normal <2 [facility] Comment on above: Result Comment: Urob ilinogen, Urine Reference Range: <2.0 mg/dL Performed By: #### C BCDIF, HCGQT, LIPASE, CMET, BHBA #### Unless otherwise noted, all testing performed by [place] [address] CLIA: [id number] Swimming Pool Installer: Cristofer Perry M.D. WBC,Urine 3 /HPF Normal 0-5 [facility] Comment on above: Performed By: #### C BCDIF, HCGQT, LIPASE, CMET, BHBA #### Unless otherwise noted, all testing performed by [place] [address] CLIA: [id number] Swimming Pool Installer: Cristofer Perry M.D. Glucose, POCon 02-02-2018 Glucose mass conc 183 mg/dL High 70-105 [facility] Comment on above: Performed By: #### G LUX #### Unless otherwise noted, all testing performed by [place] [address] CLIA: [id number] Swimming Pool Installer: Cristofer Perry M.D. Beta Hydroxybutyrateon 02-01 Beta Hydroxybutyrate 0.1 mmol/L Normal 0.00-0.30 [facility] Comment on above: Performed By: #### C BCDIF, HCGQT, LIPASE, CMET, BHBA #### Unless otherwise noted, all testing performed by [place] [address] CLIA: [id number] Swimming Pool Installer: Cristofer Perry M.D. CBC with Diffon 02-01-2018 Basophils #/vol (Bld) 0.0 K/mcL Normal 0-0.2 [facility] Comment on above: Performed By: #### C BCDIF, HCGQT, LIPASE, CMET, BHBA #### Unless otherwise noted, all testing performed by [place] [phone] CLIA: [id number] Swimming Pool Installer: Cristofer Perry M.D. Basophils/100 WBC (Bld) 0.6 % Normal [facility] Comment on above: Performed By: #### C BCDIF, HCGQT, LIPASE, CMET, BHBA #### Unless otherwise noted, all testing performed by [place] [phone] CLIA: [id number] Swimming Pool Installer: Cristofer Perry M.D. Eosinophils #/vol (Bld) 0.1 K/mcL Normal 0-0.5 [facility] Comment on above: Performed By: #### C BCDIF, HCGQT, LIPASE, CMET, BHBA #### Unless otherwise noted, all testing performed by [place] [phone] CLIA: [id number] Swimming Pool Installer: Cristofer Perry M.D. Eosinophils/100 WBC (Bld) 1.9 % Normal [facility] Comment on above: Performed By: #### C BCDIF, HCGQT, LIPASE, CMET, BHBA #### Unless otherwise noted, all testing performed by [place] [phone] CLIA: [id number] Swimming Pool Installer: Cristofer Perry M.D. Erythrocyte distribution width Ratio (RBC) 14.3 % Normal 10.0-14.4 [facility] Comment on above: Performed By: #### C BCDIF, HCGQT, LIPASE, CMET, BHBA #### Unless otherwise noted, all testing performed by [place] [address] CLIA: [id number] Swimming Pool Installer: Cristofer Perry M.D. Hematocrit Volume Fraction (Bld) 43.7 % Normal 34.4-44.8 [facility] Comment on above: Performed By: #### C BCDIF, HCGQT, LIPASE, CMET, BHBA #### Unless otherwise noted, all testing performed by [place] [address] CLIA: [id number] Swimming Pool Installer: Cristofer Perry M.D. Hemoglobin mass conc (Bld) 15.0 g/dL Normal 11.6-15.4 [facility] Comment on above: Performed By: #### C BCDIF, HCGQT, LIPASE, CMET, BHBA #### Unless otherwise noted, all testing performed by [place] [address] CLIA: [id number] Swimming Pool Installer: Cristofer Perry M.D. Lymphocytes #/vol (Bld) 2.7 K/mcL Normal 1.0-3.7 [facility] Comment on above: Performed By: #### C BCDIF, HCGQT, LIPASE, CMET, BHBA #### Unless otherwise noted, all testing performed by [place] [address] CLIA: [id number] Swimming Pool Installer: Cristfoer Perry M.D. Lymphocytes/100 WBC (Bld) 35.0 % Normal [facility] Comment on above: Performed By: #### C BCDIF, HCGQT, LIPASE, CMET, BHBA #### Unless otherwise noted, all testing performed by [place] [address] CLIA: [id number] Swimming Pool Installer: Cristofer Perry M.D. MCH Entitic mass (RBC) 27.5 pg Low 27.9-33.9 [facility] Comment on above: Performed By: #### C BCDIF, HCGQT, LIPASE, CMET, BHBA #### Unless otherwise noted, all testing performed by [place] [address] CLIA: [id number] Swimming Pool Installer: Cristofer Perry M.D. MCHC mass conc (RBC) 34.3 g/dL Normal 33.1-35.1 [facility] Comment on above: Performed By: #### C BCDIF, HCGQT, LIPASE, CMET, BHBA #### Unless otherwise noted, all testing performed by [place] [address] CLIA: [id number] Swimming Pool Installer: Cristofer Perry M.D. MCV Entitic volume (RBC) 80.3 fL Low 82.6-98.9 [facility] Comment on above: Performed By: #### C BCDIF, HCGQT, LIPASE, CMET, BHBA #### Unless otherwise noted, all testing performed by [place] [address] CLIA: [id number] Swimming Pool Installer: Cristofer Perry M.D. Monocytes #/vol (Bld) 0.4 K/mcL Normal 0.1-0.6 [facility] Comment on above: Performed By: #### C BCDIF, HCGQT, LIPASE, CMET, BHBA #### Unless otherwise noted, all testing performed by [place] [address] CLIA: [id number] Swimming Pool Installer: Cristofer Perry M.D. Monocytes/100 WBC (Bld) 4.8 % Normal [facility] Comment on above: Performed By: #### C BCDIF, HCGQT, LIPASE, CMET, BHBA #### Unless otherwise noted, all testing performed by [place] [phone] CLIA: [id number] Swimming Pool Installer: Cristofer Perry M.D. Neutrophils #/vol (Bld) 4.5 K/mcL Normal 1.2-6.9 [facility] Comment on above: Performed By: #### C BCDIF, HCGQT, LIPASE, CMET, BHBA #### Unless otherwise noted, all testing performed by [place] [phone] CLIA: [id number] Swimming Pool Installer: Cristofer Perry M.D. Platelet mean volume Entitic volume (Bld) 7.9 fL Normal 7.0-10.6 [facility] Comment on above: Performed By: #### C BCDIF, HCGQT, LIPASE, CMET, BHBA #### Unless otherwise noted, all testing performed by [place] [address] CLIA: [id number] Swimming Pool Installer: Cristofer Perry M.D. Platelets #/vol (Bld) 274 K/mcL Normal 162-402 [facility] Comment on above: Performed By: #### C BCDIF, HCGQT, LIPASE, CMET, BHBA #### Unless otherwise noted, all testing performed by [place] [address] CLIA: [id number] Swimming Pool Installer: Cristofer Perry M.D. RBC #/vol (Bld) 5.44 M/mcL High 3.7-5.0 [facility] Comment on above: Performed By: #### C BCDIF, HCGQT, LIPASE, CMET, BHBA #### Unless otherwise noted, all testing performed by [place] [address] CLIA: [id number] Swimming Pool Installer: Cristofer Perry M.D. Segmented Neut % 57.7 % Normal [facility] Comment on above: Performed By: #### C BCDIF, HCGQT, LIPASE, CMET, BHBA #### Unless otherwise noted, all testing performed by [place] [address] CLIA: [id number] Swimming Pool Installer: Cristofer Perry M.D. WBC #/vol (Bld) 7.8 K/mcL Normal 3.4-10.6 [facility] Comment on above: Performed By: #### C BCDIF, HCGQT, LIPASE, CMET, BHBA #### Unless otherwise noted, all testing performed by [place] [address] CLIA: [id number] Swimming Pool Installer: Cristofer Perry M.D. Comprehensive Metabolic Pane [facility] 02-01-2018 Albumin mass conc 3.8 g/dL Normal 3.2-5.2 [facility] Comment on above: Performed By: #### C BCDIF, HCGQT, LIPASE, CMET, BHBA #### Unless otherwise noted, all testing performed by [address] [place], [place] [address] CLIA: [id number] Swimming Pool Installer: Cristofer Perry M.D. ALP enzyme act/vol 86 U/L Normal 40-140 [facility] Comment on above: Performed By: #### C BCDIF, HCGQT, LIPASE, CMET, BHBA #### Unless otherwise noted, all testing performed by [place] [address] CLIA: [id number] Swimming Pool Installer: Cristofer Perry M.D. ALT enzyme act/vol 38 U/L Normal 14-65 [facility] Comment on above: Result Comment: This test result might be falsely depressed or falsely elevated on samples drawn from patients taking Sulfasalazine and Sulfapyridine. Venipuncture should occur prior to taking either of these drugs. Performed By: #### C BCDIF, HCGQT, LIPASE, CMET, BHBA #### Unless otherwise noted, all testing performed by [place] [address] CLIA: [id number] Swimming Pool Installer: Cristofer Perry M.D. AST enzyme act/vol 11 U/L Normal 0-45 [facility] Comment on above: Result Comment: This test result might be falsely depressed or falsely elevated on samples drawn from patients taking Sulfasalazine and Sulfapyridine. Venipuncture should occur prior to taking either of these drugs. Performed By: #### C BCDIF, HCGQT, LIPASE, CMET, BHBA #### Unless otherwise noted, all testing performed by [place] [address] CLIA: [id number] Swimming Pool Installer: Cristofer Perry M.D. Bilirubin mass conc 0.3 mg/dL Normal 0.3-1.2 [facility] Comment on above: Performed By: #### C BCDIF, HCGQT, LIPASE, CMET, BHBA #### Unless otherwise noted, all testing performed by [place] [address] CLIA: [id number] Swimming Pool Installer: Cristofer Perry M.D. Calcium mass conc 9.0 mg/dL Normal 8.4-10.2 [facility] Comment on above: Performed By: #### C BCDIF, HCGQT, LIPASE, CMET, BHBA #### Unless otherwise noted, all testing performed by [place] [address] CLIA: [id number] Swimming Pool Installer: Cristofer Perry M.D. Chloride molar conc 106 mmol/L Normal 98-108 [facility] Comment on above: Performed By: #### C BCDIF, HCGQT, LIPASE, CMET, BHBA #### Unless otherwise noted, all testing performed by [place] [address] CLIA: [id number] Swimming Pool Installer: Cristofer Perry M.D. CO2 molar conc 20 mmol/L Low 21-32 [facility] Comment on above: Performed By: #### C BCDIF, HCGQT, LIPASE, CMET, BHBA #### Unless otherwise noted, all testing performed by [place] [address] CLIA: [id number] Swimming Pool Installer: Cristofer Perry M.D. Creatinine mass conc 0.85 mg/dL Normal 0.40-1.10 [facility] Comment on above: Performed By: #### C BCDIF, HCGQT, LIPASE, CMET, BHBA #### Unless otherwise noted, all testing performed by [place] [address] CLIA: [id number] Swimming Pool Installer: Cristofer Perry M.D. GFR/1.73 sq M predicted among blacks MDRD vol rate/area (S/P/Bld) mL/min/{1.73_m2} Normal [facility] Comment on above: Result Comment: Afri can [place] GFR Calc Performed By: #### C BCDIF, HCGQT, LIPASE, CMET, BHBA #### Unless otherwise noted, all testing performed by [place] [address] CLIA: [id number] Swimming Pool Installer: Cristofer Perry M.D. GFR/1.73 sq M predicted among non-blacks MDRD vol rate/area (S/P/Bld) mL/min/{1.73_m2} [facility] Comment on above: Result Comment: Non- [...] noted, all testing performed by [place] [address] CLIA: [id number] Swimming Pool Installer: Cristofer Perry M.D. Glucose mass conc 360 mg/dL High 70-99 [facility] Comment on above: Result Comment: This test result might be falsely depressed or falsely elevated on samples drawn from patients taking Sulfasalazine and Sulfapyridine. Venipuncture should occur prior to taking either of these drugs. Performed By: #### C BCDIF, HCGQT, LIPASE, CMET, BHBA #### Unless otherwise noted, all testing performed by [place] [address] CLIA: [id number] Swimming Pool Installer: Cristofer Perry M.D. Potassium molar conc 3.5 mmol/L Normal 3.5-5.1 [facility] Comment on above: Performed By: #### C BCDIF, HCGQT, LIPASE, CMET, BHBA #### Unless otherwise noted, all testing performed by [place] [address] CLIA: [id number] Swimming Pool Installer: Cristofer Perry M.D. Protein mass conc 8.2 g/dL High 6.0-8.0 [facility] Comment on above: Performed By: #### C BCDIF, HCGQT, LIPASE, CMET, BHBA #### Unless otherwise noted, all testing performed by [place] [address] CLIA: [id number] Swimming Pool Installer: Cristofer Perry M.D. Sodium molar conc 137 mmol/L Normal 135-145 [facility] Comment on above: Performed By: #### C BCDIF, HCGQT, LIPASE, CMET, BHBA #### Unless otherwise noted, all testing performed by [place] [address] CLIA: [id number] Swimming Pool Installer: Cristofer Perry M.D. Urea nitrogen mass conc 11 mg/dL Normal 8-25 [facility] Comment on above: Performed By: #### C BCDIF, HCGQT, LIPASE, CMET, BHBA #### Unless otherwise noted, all testing performed by [place] [address] CLIA: [id number] Swimming Pool Installer: Cristofer Perry M.D. Culture, Urineon 02-01-2018 Culture, Urine Test Name: Culture, Urine Culture Status: Final Culture Report: No significant growth. Micro Source: Urine Normal [facility] Comment on above: Performed By: #### C BCDIF, HCGQT, LIPASE, CMET, BHBA #### Unless otherwise noted, all testing performed by [place] [address] CLIA: [id number] Swimming Pool Installer: Cristofer Perry M.D. Culture, Urine Test Name: Culture, Urine Culture Status: Final Culture Report: No Growth - Day 2 Micro Source: Urine Normal [facility] Comment on above: Performed By: #### C BCDIF, HCGQT, LIPASE, CMET, BHBA #### Unless otherwise noted, all testing performed by [place] [address] CLIA: [id number] Swimming Pool Installer: Cristofer Perry M.D. HCG, Quantitativeon 02-02-20 18 HCG, Quantitative 4321 mIU/mL Normal [facility] Comment on above: Result Comment: HCG, Quant. Reference Range: [Units mIU/ml] Gestation Age Approx.HCG 0.2-1Week 5-50 1-2 Weeks 50-500 2-3 Weeks 100-5,000 3-4 Weeks 500-10,000 4-5 Weeks 1,000-50,000 6-8 Weeks 15,000-200,000 2-3 Months 10,000-100,000 Non- Females <5 Males <5 Performed By: #### C BCDIF, HCGQT, LIPASE, CMET, BHBA #### Unless otherwise noted, all testing performed by [place] [address] CLIA: [id number] Swimming Pool Installer: Cristofer Perry M.D. Lipaseon 02-01-2018 Lipase enzyme act/vol 136 U/L Normal 73-393 [facility] Comment on above: Performed By: #### C BCDIF, HCGQT, LIPASE, CMET, BHBA #### Unless otherwise noted, all testing performed by [place] [address] CLIA: [id number] Swimming Pool Installer: Cristofer Perry M.D. Urinalysis, Routineon 2017 Bacteria LM.HPF #/area (Urine sed) Rare Normal NS;RARE [facility] Comment on above: Performed By: #### U A #### Unless otherwise noted, all testing performed by [place] [address] CLIA: [id number] Swimming Pool Installer: Cristofer Perry M.D. Bilirubin,Urine Negative Normal NEG;NEGATIVE [facility] Comment on above: Performed By: #### U A #### Unless otherwise noted, all testing performed by [place] [address] CLIA: [id number] Swimming Pool Installer: Cristofer Perry M.D. Blood,Urine Negative Normal NEG;NEGATIVE [facility] Comment on above: Performed By: #### U A #### Unless otherwise noted, all testing performed by [place] [address] CLIA: [id number] Swimming Pool Installer: Cristofer Perry M.D. Character Nom (U) Clear Normal [facility] Comment on above: Performed By: #### U A #### Unless otherwise noted, all testing performed by [place] [address] CLIA: [id number] Swimming Pool Installer: Cristofer Perry M.D. Color Nom (U) Straw Normal [facility] Comment on above: Performed By: #### U A #### Unless otherwise noted, all testing performed by [place] [address] CLIA: [id number] Swimming Pool Installer: Cristofer Perry M.D. Glucose Ql (U) >= 500 High < 70 [facility] Comment on above: Performed By: #### U A #### Unless otherwise noted, all testing performed by [place] [phone] CLIA: [id number] Swimming Pool Installer: Cristofer Perry M.D. Ketone,Urine Trace Abnormal NEG;NEGATIVE [facility] Comment on above: Performed By: #### U A #### Unless otherwise noted, all testing performed by [place] [phone] CLIA: [id number] Swimming Pool Installer: Cristofer Perry M.D. Leuk.Esterase,Urine Negative Normal Negative [facility] Comment on above: Performed By: #### U A #### Unless otherwise noted, all testing performed by [place] [phone] CLIA: [id number] Swimming Pool Installer: Cristofer Perry M.D. Nitrite,Urine Negative Normal NEG;NEGATIVE [facility] Comment on above: Performed By: #### U A #### Unless otherwise noted, all testing performed by [place] [address] CLIA: [id number] Swimming Pool Installer: Cristofer Perry M.D. pH (U) 5.0 [pH] Normal 4.5-8.0 [facility] Comment on above: Performed By: #### U A #### Unless otherwise noted, all testing performed by [place] [address] CLIA: [id number] Swimming Pool Installer: Cristofer Perry M.D. Protein mass conc (U) Negative Normal NEG;NEGATIVE [facility] Comment on above: Performed By: #### U A #### Unless otherwise noted, all testing performed by [place] [address] CLIA: [id number] Swimming Pool Installer: Cristofer Perry M.D. RBC LM.HPF #/area (Urine sed) /[HPF] Normal 0-5 [facility] Comment on above: Performed By: #### U A #### Unless otherwise noted, all testing performed by [place] [address] CLIA: [id number] Swimming Pool Installer: Cristofer Perry M.D. Specific [place],Urine 1.031 High 1.003-1.029 [facility] Comment on above: Performed By: #### U A #### Unless otherwise noted, all testing performed by [place] [address] CLIA: [id number] Swimming Pool Installer: Cristofer Perry M.D. Squamous Epithelial < 1 Normal 0-40 [facility] Comment on above: Performed By: #### U A #### Unless otherwise noted, all testing performed by [place] [address] CLIA: [id number] Swimming Pool Installer: Cristofer Perry M.D. Urobilinogen,Urine < 2.0 Normal <2 [facility] Comment on above: Performed By: #### U A #### Unless otherwise noted, all testing performed by [place] [address] CLIA: [id number] Swimming Pool Installer: Cristofer Perry M.D. WBC,Urine 1 /HPF Normal 0-5 [facility] Comment on above: Performed By: #### U A #### Unless otherwise noted, all testing performed by [place] [address] CLIA: [id number] Swimming Pool Installer: Cristofer Perry M.D. Venous Blood Gason 8 Allens Test N/A Normal [facility] Comment on above: Performed By: #### V BG #### Unless otherwise noted, all testing performed by [place] [address] CLIA: [id number] Swimming Pool Installer: Cristofer Perry M.D. Base Excess, Venous -3.0 mmol/L Low -2.0-2.0 [facility] Comment on above: Performed By: #### V BG #### Unless otherwise noted, all testing performed by [place] [address] CLIA: [id number] Swimming Pool Installer: Cristofer Perry M.D. Blood Gas Instrument ;ED Normal [facility] Comment on above: Performed By: #### V BG #### Unless otherwise noted, all testing performed by [place] [address] CLIA: [id number] Swimming Pool Installer: Cristofer Perry M.D. Carboxyhemoglobin, Venous 2.3 Normal [facility] Comment on above: Result Comment: Subu rban Non-Smoker <1.5% of total Hgb Smoker 1.5 - 5.0 % of total Hgb Heavy Smoker 5.0 - 9.0 % of total Hgb Performed By: #### V BG #### Unless otherwise noted, all testing performed by [place] [address] CLIA: [id number] Swimming Pool Installer: Cristofer Perry M.D. DeOxyhemoglobin (HHB), Venous < 2.4 Normal [facility] Comment on above: Result Comment: noti fied at Value below reportable range < 2.4 Performed By: #### V BG #### Unless otherwise noted, all testing performed by [place] [phone] CLIA: [id number] Swimming Pool Installer: Cristofer Perry M.D. Drawn By (Bld Gas) lab Normal [facility] Comment on above: Performed By: #### V BG #### Unless otherwise noted, all testing performed by [place] [phone] CLIA: [id number] Swimming Pool Installer: Cristofer Perry M.D. FIO2 21.0 % Normal 21-100 [facility] Comment on above: Performed By: #### V BG #### Unless otherwise noted, all testing performed by [place] [phone] CLIA: [id number] Swimming Pool Installer: Cristofer Perry M.D. Hematocrit Volume Fraction (Bld) 42.4 % Normal 36-46 [facility] Comment on above: Performed By: #### V BG #### Unless otherwise noted, all testing performed by [place] [address] CLIA: [id number] Swimming Pool Installer: Cristofer Perry M.D. Hemoglobin mass conc (Bld) 95.8 % Normal 92-99 [facility] Comment on above: Performed By: #### V BG #### Unless otherwise noted, all testing performed by [place] [address] CLIA: [id number] Swimming Pool Installer: Cristofer Perry M.D. Hemoglobin mass conc (Bld) 13.8 g/dL Normal 12.0-16.0 [facility] Comment on above: Performed By: #### V BG #### Unless otherwise noted, all testing performed by [place] [phone] CLIA: [id number] Swimming Pool Installer: Cristofer Perry M.D. Hemoglobin mass conc (Bld) 99.3 % High 40-70 [facility] Comment on above: Result Comment: Valu e above reference range Performed By: #### V BG #### Unless otherwise noted, all testing performed by [place] [phone] CLIA: [id number] Swimming Pool Installer: Cristofer Perry M.D. Methemoglobin, Venous 1.3 Normal < 2.0 [facility] Comment on above: Performed By: #### V BG #### Unless otherwise noted, all testing performed by [place] [phone] CLIA: [id number] Swimming Pool Installer: Cristofer Perry M.D. O2 CT, Venous 8.4 mmol/L Normal [facility] Comment on above: Performed By: #### V BG #### Unless otherwise noted, all testing performed by [place] [address] CLIA: [id number] Swimming Pool Installer: Cristofer Perry M.D. O2 Device Room Air Normal [facility] Comment on above: Performed By: #### V BG #### Unless otherwise noted, all testing performed by [place] [phone] CLIA: [id number] Swimming Pool Installer: Cristofer Perry M.D. pCO2 (temp conv.), Venous 38.3 mm Hg Low [address] [place] [address] Comment on above: Performed By: #### V BG #### Unless otherwise noted, all testing performed by [place] [phone] CLIA: [id number] Swimming Pool Installer: Cristofer Perry M.D. pCO2, Venous 38.3 mm Hg Low [address] [place] [address] Comment on above: Result Comment: Valu e below reference range Performed By: #### V BG #### Unless otherwise noted, all testing performed by [place] [phone] CLIA: [id number] Swimming Pool Installer: Cristofer Perry M.D. pH (temp conv.), Venous 7.367 Normal 7.32-7.42 [facility] Comment on above: Performed By: #### V BG #### Unless otherwise noted, all testing performed by [place] [phone] CLIA: [id number] Swimming Pool Installer: Cristofer Perry M.D. pH, Venous 7.367 Normal 7.32-7.42 [facility] Comment on above: Performed By: #### V BG #### Unless otherwise noted, all testing performed by [place] [address] CLIA: [id number] Swimming Pool Installer: Cristofer Perry M.D. pO2(temp conv.), Venous 149 mm Hg High [address] [place] [address] Comment on above: Performed By: #### V BG #### Unless otherwise noted, all testing performed by [place] [address] CLIA: [id number] Swimming Pool Installer: Cristofer Perry M.D. pO2, Venous 149 mm Hg High [address] [place] [address] Comment on above: Performed By: #### V BG #### Unless otherwise noted, all testing performed by [place] [phone] CLIA: [id number] Swimming Pool Installer: Cristofer Perry M.D. Site (Bld Gas) OTHER Normal [facility] Comment on above: Performed By: #### V BG #### Unless otherwise noted, all testing performed by [place] [address] CLIA: [id number] Swimming Pool Installer: Cristofer Perry M.D. VPO2 22.0 mmol/L Low 24-28 [facility] Comment on above: Performed By: #### V BG #### Unless otherwise noted, all testing performed by [place] [address] CLIA: [id number] Swimming Pool Installer: Cristofer Perry M.D. iSTAT Pediatric Panelon - Chloride molar conc 105 mmol/L Normal 98-109 [facility] Comment on above: Performed By: #### E RPED #### Unless otherwise noted, all testing performed by [place] [address] CLIA: [id number] Swimming Pool Installer: Cristofer Perry M.D. CO2 molar conc 22 mmol/L Low 23-32 [facility] Comment on above: Performed By: #### E RPED #### Unless otherwise noted, all testing performed by [place] [address] CLIA: [id number] Swimming Pool Installer: Cristofer Perry M.D. Creatinine mass conc 0.4 mg/dL Normal 0.40-1.10 [facility] Comment on above: Performed By: #### E RPED #### Unless otherwise noted, all testing performed by [place] [address] CLIA: [id number] Swimming Pool Installer: Cristofer Perry M.D. Glucose mass conc 259 mg/dL High 70-99 [facility] Comment on above: Performed By: #### E RPED #### Unless otherwise noted, all testing performed by [place] [address] CLIA: [id number] Swimming Pool Installer: Cristofer Perry M.D. Hematocrit Volume Fraction (Bld) 38 % Normal 38.0-51.0 [facility] Comment on above: Performed By: #### E RPED #### Unless otherwise noted, all testing performed by [place] [address] CLIA: [id number] Swimming Pool Installer: Cristofer Perry M.D. Hemoglobin mass conc (Bld) 12.9 g/dL Normal 12.0-17.0 [facility] Comment on above: Performed By: #### E RPED #### Unless otherwise noted, all testing performed by [place] [address] CLIA: [id number] Swimming Pool Installer: Cristofer Perry M.D. Ionized Calcm 1.14 mmol/L Normal 1.12-1.32 [facility] Comment on above: Performed By: #### E RPED #### Unless otherwise noted, all testing performed by [place] [phone] CLIA: [id number] Swimming Pool Installer: Cristofer Perry M.D. Potassium molar conc 4.3 mmol/L Normal 3.5-4.9 [facility] Comment on above: Performed By: #### E RPED #### Unless otherwise noted, all testing performed by [place] [address] CLIA: [id number] Swimming Pool Installer: Cristofer Perry M.D. Sodium molar conc 137 mmol/L Normal 136-141 [facility] Comment on above: Performed By: #### E RPED #### Unless otherwise noted, all testing performed by [place] [address] CLIA: [id number] Swimming Pool Installer: Cristofer Perry M.D. Urea nitrogen mass conc 9 mg/dL Normal 8-26 [facility] Comment on above: Performed By: #### E RPED #### Unless otherwise noted, all testing performed by [place] [address] CLIA: [id number] Swimming Pool Installer: Cristofer Perry M.D. Chloride molar conc 102 mmol/L Normal 98-109 [facility] Comment on above: Performed By: #### E RPED #### Unless otherwise noted, all testing performed by [place] [address] CLIA: [id number] Swimming Pool Installer: Cristofer Perry M.D. CO2 molar conc 21 mmol/L Low 23-32 [facility] Comment on above: Performed By: #### E RPED #### Unless otherwise noted, all testing performed by [place] [phone] CLIA: [id number] Swimming Pool Installer: Cristofer Perry M.D. Creatinine mass conc 0.4 mg/dL Normal 0.40-1.10 [facility] Comment on above: Performed By: #### E RPED #### Unless otherwise noted, all testing performed by [place] [address] CLIA: [id number] Swimming Pool Installer: Cristofer Perry M.D. Glucose mass conc 350 mg/dL High 70-99 [facility] Comment on above: Performed By: #### E RPED #### Unless otherwise noted, all testing performed by [place] [address] CLIA: [id number] Swimming Pool Installer: Cristofer Perry M.D. Hematocrit Volume Fraction (Bld) 39 % Normal 38.0-51.0 [facility] Comment on above: Performed By: #### E RPED #### Unless otherwise noted, all testing performed by [place] [address] CLIA: [id number] Swimming Pool Installer: Cristofer Perry M.D. Hemoglobin mass conc (Bld) 13.3 g/dL Normal 12.0-17.0 [facility] Comment on above: Performed By: #### E RPED #### Unless otherwise noted, all testing performed by [place] [address] CLIA: [id number] Swimming Pool Installer: Cristofer Perry M.D. Ionized Calcm 1.19 mmol/L Normal 1.12-1.32 [facility] Comment on above: Performed By: #### E RPED #### Unless otherwise noted, all testing performed by [place] [address] CLIA: [id number] Swimming Pool Installer: Cristofer Perry M.D. Potassium molar conc 3.8 mmol/L Normal 3.5-4.9 [facility] Comment on above: Performed By: #### E RPED #### Unless otherwise noted, all testing performed by [place] [phone] CLIA: [id number] Swimming Pool Installer: Cristofer Perry M.D. Sodium molar conc 137 mmol/L Normal 136-141 [facility] Comment on above: Performed By: #### E RPED #### Unless otherwise noted, all testing performed by [place] [address] CLIA: [id number] Swimming Pool Installer: Cristofer Perry M.D. Urea nitrogen mass conc 10 mg/dL Normal 8-26 [facility] Comment on above: Performed By: #### E RPED #### Unless otherwise noted, all testing performed by [place] [address] CLIA: [id number] Swimming Pool Installer: Cristofer Perry M.D. EMERGENCY DEPARTMENTon 12-14 [place] [address] HEALTH INFORMATION MANAGEMENT EMERGENCY DEPARTMENT : Signed Patient: MELISSA KAUR Acct:[id number] MRUN: [id number] : 1995 Sex: F Loc: ED ADM [...] Abuse: No Hx Suspected Abuse: No - [place]/Gender ID What is your current Gender Identity? [...] intact - Skin Skin Color: Present: Normal, [place] Skin exam: Present: warm, dry - Vital [...] sl.cloudy (Clear) Urine pH 5 Ur Specific [place] 1.020 (1.015-1.025) Urine Protein Negative (Negative) Urine [...] Provider: 12/14/17 18:55 - Dictation Amendments/Documentatio n: Ifbyphone Document Only Electronically Generated By: SARAI PAULA MD Generated Date/Time: 12/14/171934 Electronically Signed By: SARAI PAULA MD Signed Date/Time 12/14/172023 Co Signed Electronically By: Co Signed Date/Time: CC: MILLY SINCLAIR Normal [facility] LURNCon 12-14-2017 LURNC Urine Culture, Miles ne = Final reportPerformed at: [facility] Lab[address] [id number] Director: Korey Corral PhD, Phone: [id number] REPORT: Previous result was SEE BELOW at [...] SPiperacillin/Tazobacta m STetracycline STobramycin STrimethoprim/Sulfa SPerformed at: [facility] [place] [id number] Director: Korey Corral PhD, Phone: [phone] Urine Culture = urine, void Normal [facility] Comment on above: Performed By: #### M IC2 ####[address] [address] (Urine)on 12-15-19 18 HCG ( test) Ql (U) Negative Normal Negative [facility] Comment on above: Performed By: #### P REGU ####[address] [address] UA w/Micrscopic-reflex cultu reon 12-14-2017 Appearance sl.cloudy Normal Clear [facility] Comment on above: Performed By: #### U AMRC ####[address] [address] Bacteria 2+ /hpf Normal 0 - 1+ [facility] Comment on above: Performed By: #### U AMRC ####[address] [address] Bilirubin Negative Normal Negative [facility] Comment on above: Performed By: #### U AMRC ####[address] [address] Blood 10 Abnormal Negative [facility] Comment on above: Performed By: #### U AMRC ####[address] [address] Casts OR SCRUB TECH Normal [facility] Comment on above: Performed By: #### U AMRC ####[address] [address] Casts. OR SCRUB TECH Normal [facility] Comment on above: Performed By: #### U AMRC ####[address] [address] Color yellow Normal Yellow [facility] Comment on above: Performed By: #### U AMRC ####[address] [address] Crystals OR SCRUB TECH Normal [facility] Comment on above: Performed By: #### U AMRC ####[address] [address] Crystals. OR SCRUB TECH Normal [facility] Comment on above: Performed By: #### U AMRC ####[address] [address] Epithelial Cells >15 Normal 0 - 6 [facility] Comment on above: Performed By: #### U AMRC ####[address] [address] Glucose 1000 Abnormal Negative [facility] Comment on above: Performed By: #### U AMRC ####[address] [address] Ketones Trace Normal Negative [facility] Comment on above: Performed By: #### U AMRC ####[address] [address] Leukocytes Esterase Trace Abnormal Negative [facility] Comment on above: Performed By: #### U AMRC ####[address] [address] Mucus OR SCRUB TECH Normal [facility] Comment on above: Performed By: #### U AMRC ####[address] [address] Nitrites Negative Normal Negative [facility] Comment on above: Performed By: #### U AMRC ####[address] [address] pH 5 Normal [facility] Comment on above: Performed By: #### U AMRC ####[address] [address] Protein Negative Normal Negative [facility] Comment on above: Performed By: #### U AMRC ####[address] [address] Specific [place] 1.020 Normal 1.015-1.025 [facility] Comment on above: Performed By: #### U AMRC ####[address] [address] Trichomonas OR SCRUB TECH Normal [facility] Comment on above: Performed By: #### U AMRC ####[address] [address] Urine, erythrocytes 2-5 Normal 0 - 2 [facility] Comment on above: Performed By: #### U AMRC ####[address] [address] Urobilinogen NORMAL Normal Normal-1.0 [facility] Comment on above: Performed By: #### U AMRC ####[address] [address] WBC 2-5 Normal 0 - 6 [facility] Comment on above: Performed By: #### U AMRC ####[place] [address] [place], [place] [address] Yeast OR SCRUB TECH Normal [facility] Comment on above: Performed By: #### U AMRC ####[facility] [place], [place] [address] Other OR SCRUB TECH Normal [facility] Comment on above: Performed By: #### U AMRC ####[facility] [place] [address] Basic Metabolic Panelon -2 Anion gap 10.0 mmol/L Normal 6.0-18.0 [facility] Comment on above: Result Comment: CARSON BARKER NOTE:The calculated Anion Gap(AGAP) does not include Potassium. Performed By: #### 6 9405-9, 52676-4r1, 51054-8 ####[facility], [address], [place]. Calcium 9.2 mg/dL Normal 8.9-10.3 [facility] Comment on above: Performed By: #### 6 9405-9, 63951-1x0, 15459-1 ####[facility], [address], [place]. Chloride 103 mmol/L Normal 98-107 [facility] Comment on above: Performed By: #### 6 9405-9, 25526-6x9, 51769-8 ####[facility], [address], [place]. CO2 26 mmol/L Normal 22-32 [facility] Comment on above: Performed By: #### 6 9405-9, 00363-9f4, 61683-4 ####[facility], [address], [place]. Creatinine 0.82 mg/dL Normal 0.66-1.30 [facility] Comment on above: Performed By: #### 6 9405-9, 04697-5w6, 03150-5 ####[facility], [address] [place], [place]. Glucose mass conc 178 mg/dL High 70-110 [facility] Comment on above: Performed By: #### 6 9405-9, 47200-7y7, 97314-9 ####[facility], [address] [place], [place]. Potassium molar conc 3.5 mmol/L Low 3.6-5.1 [facility] Comment on above: Performed By: #### 6 9405-9, 40253-2t2, 51989-1 ####[facility], [address] [place], [place]. Sodium 139 mmol/L Normal 136-145 [facility] Comment on above: Performed By: #### 6 9405-9, 80405-7c7, 85713-5 ####[facility], [address] [place], [place]. Urea nitrogen 16 mg/dL Normal 8-20 [facility] Comment on above: Performed By: #### 6 9405-9, 14756-3v2, 93163-8 ####[facility], [address] [place] [address]. CBC with Differentialon -2 Basophils Auto #/vol (Bld) 0.3 % Normal 0.0-2.0 [facility] Comment on above: Performed By: #### 5 7021-8 ####[facility], [address] [place], [place]. Basophils Auto #/vol (Bld) 0.00 thou/mcL Normal 0.00-0.20 [facility] Comment on above: Performed By: #### 5 7021-8 ####[facility], [address] [place], [place]. Eosinophils 0.10 thou/mcL Normal 0.00-0.70 [facility] Comment on above: Performed By: #### 5 7021-8 ####[facility], [address], [place]. Eosinophils/100 leukocytes 1.3 % Normal 0.0-7.0 [facility] Comment on above: Performed By: #### 5 7021-8 ####[facility], [address] [place], [place]. Erythrocyte distribution width Auto Ratio (RBC) 13.8 % Normal 11.0-14.8 [facility] Comment on above: Performed By: #### 7021-8 ####[facility], [address], [place]. Erythrocytes (RBC) 5.24 million/mcL High 3.80-5.10 [facility] Comment on above: Performed By: #### 5 7021-8 ####[facility], [facility] [address] [place], [place]. Hematocrit (HCT) 41.0 % Normal 35.0-45.0 [facility] Comment on above: Performed By: #### 7021-8 ####[facility], [address]. Hemoglobin mass conc (Bld) 14.0 g/dL Normal 12.0-16.0 [facility] Comment on above: Performed By: #### 5 7021-8 ####[facility], [address] [place], [place]. Lymphocytes 2.60 thou/mcL Normal 1.00-4.80 [facility] Comment on above: Performed By: #### 5 7021-8 ####[facility], [address], [place]. Lymphocytes/100 leukocytes 31.2 % Normal 22.0-44.0 [facility] Comment on above: Performed By: #### 5 7021-8 ####[facility], [address], [place]. MCH 26.8 Picograms Low 27.0-34.0 [facility] Comment on above: Performed By: #### 5 7021-8 ####[facility], [address] [place], [place]. MCHC mass conc (RBC) 34.2 g/dL Normal 32.0-36.0 [facility] Comment on above: Performed By: #### 5 7021-8 ####[facility], [address] [place], [place]. MCV 78.3 fL Low 80.0-97.0 [facility] Comment on above: Performed By: #### 5 7021-8 ####[facility], [address] [place], [place]. Monocytes 0.50 thou/mcL Normal 0.00-0.90 [facility] Comment on above: Performed By: #### 5 7021-8 ####[facility], [address], [place], [place]. Monocytes/100 leukocytes 6.0 % Normal 0.0-12.0 [facility] Comment on above: Performed By: #### 5 7021-8 ####[facility], [facility], [address], [place], [place]. Neutrophils 5.20 thou/mcL Normal 1.80-7.70 [facility] Comment on above: Performed By: #### 5 7021-8 ####[facility], [facility], [address], [place], [place]. Neutrophils/100 WBC Auto (Bld) 61.2 % Normal 40.0-70.0 [facility] Comment on above: Performed By: #### 5 7021-8 ####[facility], [address] [place], [place]. Platelet mean volume (PMV) 8.2 fL Normal 6.2-12.1 [facility] Comment on above: Performed By: #### 5 7021-8 ####[facility], [address], [place]. Platelets 265 thou/mcL Normal 142-424 [facility] Comment on above: Performed By: #### 5 7021-8 ####[facility], [address]. WBC (Leukocytes) 8.4 thou/mcL Normal 4.6-10.2 [facility] Comment on above: Performed By: #### 5 7021-8 ####[facility], [address], [place]. 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 Attending physician: Dr. Morales have performed a [...] normal excursion. No stridor or droolingCARDIAC: RRRSKIN: [place], warm, dryABD: Diffuse tenderness to palpation over lower abdomen.? Plan:?CBC, BMP,?urinalysis, urine test, pelvic ultrasound? Patient will await placement MAIN department? SCRIBE USED? ?YesSCRIBE ATTESTATION: I, [Catarino Cohen?], am serving as a scribe to document services personally performed by [aDvonte GOODWIN] based on the patient's responses to [...] Result(s): Date Order Results 11/29/2017 20:14 Specific [place] Urine POCT N 1.030 11/29/2017 20:14 pH Urine POCT N 5 11/29/2017 20:17 Appearance Urine A HAZY 11/29/2017 20:17 Specific [place] Urine H 1.036 11/29/2017 20:17 Glucose Urine [...] adnexal mass.Immediate final results were provided per protocol.Slayden thanks you for the opportunity to care for your patient. Workstation ID: [id number] - [id number] FOLLOW UP:FOLLOW-UP APPOINTMENTS: Provider: Specialty: Address: Date: Follow up with primary care provider 3 to 4 days Provider: Specialty: Address: Date: Return to Emergency Department Follow-up as needed Normal [facility] ED Pat Eduon 11-30-2017 ED Pat [place] [address] Emergency Department Discharge Instructions MELISSA BYRNE , [...] [facility]icios [facility] Emer[facility]cia Name MELISSA BYRNE MRN (COL)-[id number] PLEASE READ THE FOLLOWING REGARDING YOUR MEDICATIONS [...] doses are changed, or new medications (including omdm-brn-xesypjb products) are added. If you have any [...] TAKE UNTIL YOU TALK TO YOUR DOCTORNone [place] [address] [facility] Department Discharge Instructions Name: MELISSA BYRNE AMRITA Current Date: 11/29/2017 23:26:24 : 1995 12:00 PM Primary Physician: Physician, PCP Unknown We would like to thank you for choosing [facility] for your emergency medical needs. We examined [...] health of those around you. Call the [place] [employer] at 9-059-BKIZ-[place] or the [place] [employer] at 8-165-XPG-3389 for more information.High blood pressure: Your screening blood pressure today was 114 mm Hg / . Hypertension (high blood pressure) is blood pressure over 120/80. People with hypertension should contact their primary care provider within 30 days to follow up. Check your patient portal for additional blood pressure information.Immunizatio ns:Immunization is a way to protect against deadly infections. Discuss this with your child's grommet machine operator, or Public Health Department. Your family practice doctor can determine if you need pneumonia or flu vaccine. The [facility] Department can be reached at .Domestic [...] suicide hotline, anytime day or night, at 2-050-094-FHBO. Pharmacy Information:Below is a list of 24 hour pharmacies that we are aware of. We suggest that you call the specific pharmacy for their hours before traveling to a location. Hours may vary on holidays. [facility] [place] [address] [place] [address] [phone] [facility] [place] [address] [phone] [place] [address] [phone] [place] [place] [address] [phone] [place] [address] [phone] [place] [address] [phone] [place] [address] [phone] Take all medications as directed. If you need prescription assistance, contact the following agencies:?? Partnership for Prescription Assistance at or www.pparx.org?? [place] [employer] [facility] at or www.Zumigobestrx.org?? www.EldarionRx.Repka.com is a site with many valuable coupons Patient Education Materials CHAVEZ MELISSA CROWE has been given the following patient education [...] cyst, if your caregiver is not a art manager.?? Get your yearly and recommended pelvic examinations [...] 05/26/2006 Document Re-Released: 05/14/2010ExitCare?? Patient Information ??2011 [place].VIRUSES OR BACTERIA: WHAT'S GOT YOU SICK?Antibiotics only [...] education materials, prescriptions and follow-up instructions: CHAVEZ Cox, MELISSA CROWE, have received the above patient education materials/instructions and have verbalized understanding: Date Time Patien t Signature Date Time Provid er Signature Normal [facility] ED Physician Noteson 018 ED [...] this documentation, there is a possibility of sulvc-y-yvqa errors inherent to this technology that may [...] Immediate final results were provided per protocol. Slayden thanks you for the opportunity to care [...] Emergency November 29, 2017 20:32 Ordered Normal [facility] ED Physician Notes PDF Normal [facility] GFRaaon 11-30-2017 eGFR (black) mL/min/{1.73_m2} Normal [facility] Comment on above: Result Comment: The MDRD equation has not been validated for those over 70 years, women, patients with serious co-morbid conditions, or with extremes of bodysize, muscle mass of nutritional status. Performed By: #### 6 9405-9, 15337-3f3, 86504-9 ####[facility], [address] [place], [place]. GFRbbon 11-30-2017 eGFR (non-black) mL/min/{1.73_m2} Normal [facility] Comment on above: Performed By: #### 6 9405-9, 17625-7j8, 76260-8 ####[facility], [address] [place], [place]. 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 Attending physician: Dr. Shannon I have performed [...] No stridor or drooling CARDIAC: RRR SKIN: [place], warm, dry ABD: Diffuse tenderness to palpation [...] Use Tobacco No qualifying data available. Normal [facility] ED Physician Notes PDF Normal [facility] [place] Duplex Abd/Pelvis Retrope r [...] adnexal mass.Immediate final results were provided per protocol.Slayden thanks you for the opportunity to care for your patient. Workstation ID: [id number] - [id number] FINAL REPORT Dictated By: Amado Gilman MD 11/29/2017 21:34Assigned Physician: Amado Gilman MDReviewed and Electronically Signed By: Amado Gilman MD 11/29/2017 21:39Transcribed by: TAMI 11/29/2017 21:34Technologist: RANI Normal [facility] US Pelvis Non-OB Completeon 11-29-2017 [...] adnexal mass.Immediate final results were provided per protocol.Slayden thanks you for the opportunity to care for your patient. Workstation ID: [id number] - [id number] FINAL REPORT Dictated By: Amado Gilman MD 11/29/2017 21:34Assigned Physician: Amado Gilman MDReviewed and Electronically Signed By: Amado Gilman MD 11/29/2017 21:39Transcribed by: TAMI 11/29/2017 21:34Technologist: RANI Heredia [facility] US Transvaginalon 11-29-2017 US Transvaginal [...] adnexal mass.Immediate final results were provided per protocol.Slayden thanks you for the opportunity to care for your patient. Workstation ID: [id number] - [id number] FINAL REPORT Dictated By: Amado Gilman MD 11/29/2017 21:34Assigned Physician: Amado Gilman MDReviewed and Electronically Signed By: Amado Gilman MD 11/29/2017 21:39Transcribed by: TAMI 11/29/2017 21:34Technologist: NMP Normal [facility] Urinalysis Microscopicon Urine, bacteria in sediment RARE Abnormal NONE/HPF [facility] Comment on above: Performed By: #### 5 8077-9, 14153-7 ####[facility], [address]. Urine, erythrocytes in sediment by area 1 /[HPF] Normal 0-5 [facility] Comment on above: Performed By: #### 5 8077-9, 35139-5 ####[facility], [address], [place]. Urine, leukocytes in sedmiment 1 /[HPF] Normal 0-5 [facility] Comment on above: Performed By: #### 5 8077-9, 83694-1 ####[facility], [address] [place], [place]. Urine, mucus presence in sediment RARE Abnormal NONE/LPF [facility] Comment on above: Performed By: #### 5 8077-9, 28316-2 ####[facility], [address] [place], [place]. Urine, squamous cells in sediment MANY Abnormal FEW/LPF [facility] Comment on above: Performed By: #### 5 8077-9, 72635-5 ####[facility], [address] [place], [place]. Urinalysis with Microscopic Automatic with Reflexon 11-29-2017 Bilirubin Urine Negative Normal NEGATIVE [facility] Comment on above: Performed By: #### 5 8077-9, 00847-2 ####[facility], [address] [place], [place]. Nitrite Urine Positive Abnormal NEGATIVE [facility] Comment on above: Performed By: #### 5 8077-9, 50737-9 ####[facility], [address] [place], [place]. Urine, appearance HAZY Abnormal CLEAR [facility] Comment on above: Performed By: #### 5 8077-9, 89814-9 ####[facility], [address] [place], [place]. Urine, color YELLOW Normal YELLOW [facility] Comment on above: Performed By: #### 5 8077-9, 37563-9 ####[facility], [address] [place], [place]. Urine, glucose presence 500MG/DL Abnormal NORMAL [facility] Comment on above: Performed By: #### 5 8077-9, 50724-2 ####[facility], [address], [place]. Urine, hemoglobin presence Negative Normal NEGATIVE [facility] Comment on above: Performed By: #### 5 8077-9, 06638-4 ####[facility], [address]. Urine, ketones presence 5MG/DL Abnormal NEGATIVE [facility] Comment on above: Performed By: #### 5 8077-9, 01586-7 ####[facility], [address] Urine, leukocyte esterase presence Negative Normal NEGATIVE [facility] Comment on above: Performed By: #### 5 8077-9, 10144-8 ####[facility], [address] Urine, pH 5.0 [pH] Normal 4.5-8.0 [facility] Comment on above: Performed By: #### 5 8077-9, 73915-8 ####[facility], [address] Urine, protein Negative Normal NEGATIVE [facility] Comment on above: Performed By: #### 5 8077-9, 83781-8 ####[facility], [address] Urine, specific gravity 1.036 High 1.002-1.030 [facility] Comment on above: Performed By: #### 5 8077-9, 55180-9 ####[facility], [address]. Urobilinogen Urine NORMAL Normal NORMAL [facility] Comment on above: Performed By: #### 5 8077-9, 50958-0 ####[facility], [address] [facility] Breast Uni Limited LTo n 11-20-2017 [facility] Breast Uni Limited LT DATE OF EXAM : 11/20/2017 10:41 AMEXAMINATION TYPE: MA US Breast Uni Limited LTHISTORY: Recent clinical [...] follow-up for the patient's symptoms.BI-RADS Code 1-N: Negative.Slayden thanks you for the opportunity to care for your patient. Workstation ID: [email or web address] - [id number] FINAL REPORT Dictated By: Mihir Real MD 11/20/2017 10:50Assigned Physician: Mihir Real MD AReviewed and Electronically Signed By: Mihir Real MD 11/20/2017 10:53Transcribed by: TAMI 11/20/2017 10:50Technologist: GISELA He[facility]ia [facility] Antibody Screen Interpretati onon 11-15-2017 Interpretation and review of laboratory results Negative Normal NEGATIVE [facility] Comment on above: Performed By: #### 6 9405-9, 32861-7g5, 49659-0 ####[facility], [address], [place]. Basic Metabolic Panelon Anion gap 7.0 mmol/L Normal 6.0-18.0 [facility] Comment on above: Result Comment: CARSON BARKER NOTE:The calculated Anion Gap(AGAP) does not include Potassium. Performed By: #### 6 9405-9, 72012-9p0, 64325-6 ####[facility], [address]. Calcium 10.1 mg/dL Normal 8.9-10.3 [facility] Comment on above: Performed By: #### 6 9405-9, 53172-0q6, 10195-5 ####[facility], [address], [place]. Chloride 103 mmol/L Normal 98-107 [facility] Comment on above: Performed By: #### 6 9405-9, 10084-5c8, 01917-2 ####[facility], [address], [place]. CO2 28 mmol/L Normal 22-32 [facility] Comment on above: Performed By: #### 6 9405-9, 00921-0e8, 14264-8 ####[facility], [address] [place], [place]. Creatinine 0.53 mg/dL Low 0.66-1.30 [facility] Comment on above: Performed By: #### 6 9405-9, 25965-4n5, 75398-5 ####[facility], [address] [place], [place]. Glucose mass conc 215 mg/dL High 70-110 [facility] Comment on above: Performed By: #### 6 9405-9, 62487-2r1, 47246-1 ####[facility], [address] [place], [place]. Potassium molar conc 3.9 mmol/L Normal 3.6-5.1 [facility] Comment on above: Performed By: #### 6 9405-9, 02038-3w3, 84759-5 ####[facility], [address], [place]. Sodium 138 mmol/L Normal 136-145 [facility] Comment on above: Performed By: #### 6 9405-9, 25556-7y0, 94823-8 ####[facility], [address], [place]. Urea nitrogen 10 mg/dL Normal 8-20 [facility] Comment on above: Performed By: #### 6 9405-9, 20542-1m4, 38737-3 ####[facility], [address] [place], [place]. Blood Type ABO and Rh(D)on 0 11-15-2017 ABO+Rh group Positive Normal [facility] Comment on above: Performed By: #### 6 9405-9, 92705-0l9, 87629-1 ####[facility], [address], [place]. CBC with Differentialon -0 Basophils Auto #/vol (Bld) 0.10 thou/mcL Normal 0.00-0.20 [facility] Comment on above: Performed By: #### 6 9405-9, 74664-5t5, 33955-2 ####[facility], [address] [facility], [place], [place]. Basophils Auto #/vol (Bld) 0.6 % Normal 0.0-2.0 [facility] Comment on above: Performed By: #### 6 9405-9, 90255-4p1, 71482-6 ####[facility], [address] [facility], [place], [place]. Eosinophils 0.10 thou/mcL Normal 0.00-0.70 [facility] Comment on above: Performed By: #### 6 9405-9, 35910-4t8, 82914-4 ####[facility], [address] [place], [place]. Eosinophils/100 leukocytes 0.9 % Normal 0.0-7.0 [facility] Comment on above: Performed By: #### 6 9405-9, 14722-6j9, 31570-1 ####[facility], [address] [place], [place]. Erythrocyte distribution width Auto Ratio (RBC) 14.1 % Normal 11.0-14.8 [facility] Comment on above: Performed By: #### 6 9405-9, 74161-8b3, 43924-2 ####[facility], [address] [place], [place]. Erythrocytes (RBC) 5.51 million/mcL High 3.80-5.10 [facility] Comment on above: Performed By: #### 6 9405-9, 33321-7w8, 28005-1 ####[facility], [address] [place], [place]. Hematocrit (HCT) 43.1 % Normal 35.0-45.0 [facility] Comment on above: Performed By: #### 6 9405-9, 01740-4a9, 62598-6 ####[facility], [address] [place], [place]. Hemoglobin mass conc (Bld) 15.0 g/dL Normal 12.0-16.0 [facility] Comment on above: Performed By: #### 6 9405-9, 67830-3w4, 69978-0 ####[facility], [address] [facility] [place] Lymphocytes 2.20 thou/mcL Normal 1.00-4.80 [facility] Comment on above: Performed By: #### 6 9405-9, 48710-2a0, 89376-3 ####[facility], [address] [place], [place]. Lymphocytes/100 leukocytes 25.7 % Normal 22.0-44.0 [facility] Comment on above: Performed By: #### 6 9405-9, 33863-2g1, 54429-8 ####[facility], [address], [place]. MCH 27.2 Picograms Normal 27.0-34.0 [facility] Comment on above: Performed By: #### 6 9405-9, 54913-1v1, 11968-1 ####[facility], [address] [place], [place]. MCHC mass conc (RBC) 34.8 g/dL Normal 32.0-36.0 [facility] Comment on above: Performed By: #### 6 9405-9, 00509-0k9, 70904-0 ####[facility], [address] [place], [place]. MCV 78.1 fL Low 80.0-97.0 [facility] Comment on above: Performed By: #### 6 9405-9, 70135-5t1, 93390-8 ####[facility], [address], [place]. Monocytes 0.40 thou/mcL Normal 0.00-0.90 [facility] Comment on above: Performed By: #### 6 9405-9, 56367-1d7, 78257-5 ####[facility], [address] [place], [place]. Monocytes/100 leukocytes 5.1 % Normal 0.0-12.0 [facility] Comment on above: Performed By: #### 6 9405-9, 40627-0d3, 25947-5 ####[facility], [address] [place], [place]. Neutrophils 5.70 thou/mcL Normal 1.80-7.70 [facility] Comment on above: Performed By: #### 6 9405-9, 34914-3n4, 45038-0 ####[facility], [address] [place], [place]. Neutrophils/100 WBC Auto (Bld) 67.7 % Normal 40.0-70.0 [facility] Comment on above: Performed By: #### 6 9405-9, 22182-0c2, 51088-9 ####[facility], [address], [place]. Platelet mean volume (PMV) 7.8 fL Normal 6.2-12.1 [facility] Comment on above: Performed By: #### 6 9405-9, 73113-2q8, 93295-5 ####[facility], [address], [place]. Platelets 264 thou/mcL Normal 142-424 [facility] Comment on above: Performed By: #### 6 9405-9, 89200-8x3, 88589-3 ####[facility], [address] [facility] [place]. WBC (Leukocytes) 8.5 thou/mcL Normal 4.6-10.2 [facility] Comment on above: Performed By: #### 6 9405-9, 74874-8e6, 09516-7 ####[facility], [address], [place]. 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 I informed the patient of attending [...] ? ? O2 Flow ? ? ?O2 Gtzbvzvr35/09/18 16:00?-?-?- ?-/-?-? 100? -?Room air11/15/17 18:23?-?-?1 6?124/ [...] to be discharged home and follow-up with RN STARS or PCP. I believe the abdominal pain is likely due to IUD removal 3 days ago.? I discussed this case my attending physician, Dr. Jama, who agrees with workup and disposition.? I have reviewed assessment and plan with patient who verbalizes understanding. Patient will be discharged home and follow-up with OB-PRINTED FORMS PROOFREADER or PCP?provider in 72 hours. Patient is stable and agreeable to plan for discharge home.]? DISCHARGE PLAN:Condition: [Stable]. ?Disposition: [Medically cleared],? Discharged ?Date/Time:?[11-15-2017 18:58 ]?to Home?Prescriptions: NONE ?[ ]Limitations: NONEPatient Education:? Menorrhagia, Reqf-xo-Joex? [ ]Follow up with:? Provider: ?Verona Hilliard MD?? ?Specialty:??Family Practice?? ?Address:??[address] [address] ? ?[phone] ? (1)?? ?Date:??1 to 2 days??? Comment: [...] Address: Date: Verona Hilliard MD Family Practice [address] [place] [address] [phone] (1) 1 to 2 days Comment: Call for an Appointment Provider: Specialty: Address: Date: Return to Emergency Department Follow-up as needed Comment: Reasons to return to the ED discussed with patient such as fever >101 degrees F, intractable nausea/vomiting, increasing pain, increased bleeding, lack of improvement of symptoms, new symptoms. Normal [facility] ED Pat Rocio 11-15-2017 ED [place] [address] Emergency Department Discharge Instructions CHAVEZJOANNE MOODYMELISSAKATHERINE CROWE , Please provide this information to your Primary Care/Specialist Name : MELISSA BYRNE Current Date : 11/15/2017 19:17:32DOB : 1995 12:00 PM Primary Care Physician: Verona Hilliard MD Diagnosis : Menorrhagia Follow-Up Instructions:CHAVEZJOANNE MOODYMELISSA AMRITA has been given these follow-up instructions: FOLLOW-UP APPOINTMENTS: Provider: Specialty: Address: Date: Verona Hilliard MD [address] [phone] (1) 1 to 2 days Comment: Call [...] Ordered Procedure(s) and Patient Education(s) : Menorrhagia, Qpih-ld-Xeqj EMERGENCY SERVICES MEDICATION LISTLista de Medicaciones de los Servicios de Emergencia Name MELISSA BYRNE MRN (COL)-[id number] PLEASE READ THE FOLLOWING REGARDING YOUR MEDICATIONS [...] doses are changed, or new medications (including utbn-oaf-vwwiqlk products) are added. If you have any [...] TAKE UNTIL YOU TALK TO YOUR DOCTORNone [place] [address] [facility] Department Discharge Instructions Name: MELISSA BYRNE Current Date: 11/15/2017 19:17:32 : 1995 12:00 PM Primary Physician: Verona Hilliard MD We would like to thank you for choosing [facility] for your emergency medical needs. We examined [...] health of those around you. Call the [place] [employer] at 6-989-SMTA-USA or the [place] [employer] at 8-666-QTA-3140 for more information.High blood pressure: Your screening blood pressure today was 124 mm Hg / . Hypertension (high blood pressure) is blood pressure over 120/80. People with hypertension should contact their primary care provider within 30 days to follow up. Check your patient portal for additional blood pressure information.Immunizatio ns:Immunization is a way to protect against deadly infections. Discuss this with your child's grommet machine operator, or Public Health Department. Your family practice doctor can determine if you need pneumonia or flu vaccine. The [facility] Department can be reached at .Domestic [...] suicide hotline, anytime day or night, at 4-575-069-ZEAC. Pharmacy Information:Below is a list of 24 hour pharmacies that we are aware of. We suggest that you call the specific pharmacy for their hours before traveling to a location. Hours may vary on holidays. [facility] Pharm[facility] [place] [address] [phone] [address] [phone] [address] [phone] [address] [phone], [place] [phone], [place] [phone] [place] [address] [phone] Take all medications as directed. If you need prescription assistance, contact the following agencies:?? Partnership for Prescription Assistance at or www.Welliko.org?? [facility] Rx at or [email or web address]?? [employer] is a site with many valuable coupons [...] Document Reviewed: 11/25/2013Francisca Interactive Patient Education ?2016 [employer]><><><><><><><><>< ><><><><><><><><><><><> <><><><> Patient Visit Summary Signature MELISSA BYRNE has been given the following list of patient education materials, prescriptions and follow-up instructions: ICHAVEZ ALEXANDRIA JUSTINE, have received the above patient education materials/instructions and have verbalized understanding: Date Time Patien t Signature Date Time Provid er Signature Normal [facility] ED Physician Noteson 018 ED Physician Notes Chief Complaint Heav y vaginal bleeding with clotsED Assigned Provider/Time Time Seen: Diana Mo 11/15/2017 16:13History of Present Illness Patient is [...] 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 I informed the patient of attending [...] to be discharged home and follow-up with RN STARS or PCP. I believe the abdominal pain is likely due to IUD removal 3 days ago. I discussed this case my attending physician, Dr. Jama, who agrees with workup and disposition. I have reviewed assessment and plan with patient who verbalizes understanding. Patient will be discharged home and follow-up with OB-PRINTED FORMS PROOFREADER or PCP provider in 72 hours. Patient is stable and agreeable to plan for discharge home.] DISCHARGE PLAN: Condition: [Stable]. Disposition: [Medically cleared], Discharged Date/Time: [11-15-2017 18:58 ] toHome Prescriptions:NONE [ ] Limitations: NONE Patient Education: Menorrhagia, Oyuz-nd-Kovc [ ] Follow up with: Provider: Verona Hilliard MD Specialty: Family Practice Address: [address] [place] [phone] (1) Date: 1 to 2 days [...] ORDERS PLACED: Laboratory POC Urine Test (CO) [facility] November 15, 2017 16:30 Completed CBC with Differential Physician, Emergency November 15, 2017 16:49 Completed Basic Metabolic Panel Physician, Emergency November 15, 2017 16:49 Completed HCG Quantitative Physician, Emergency November 15, 2017 16:49 Completed GFRAF Physician, Emergency November 15, 2017 17:09 Completed GFRNAF Physician, Emergency November 15, 2017 17:09 Completed Urinalysis with Reflex Microscopic [facility] November 15, 2017 18:23 Completed U MICRO [facility] November 15, 2017 18:42 Completed Type and Screen Diana Mo November 15, 2017 16:49 Ordered Normal [facility] ED Physician Notes PDF Normal [facility] GFRaaon 11-15-2017 eGFR (black) mL/min/{1.73_m2} Normal [facility] Comment on above: Result Comment: The MDRD equation has not been validated for those over 70 years, women, patients with serious co-morbid conditions, or with extremes of bodysize, muscle mass of nutritional status. Performed By: #### 6 9405-9, 59716-6m6, 23664-3 ####[facility], [address] [place] [address]. GFRbbon 11-15-2017 eGFR (non-black) mL/min/{1.73_m2} Normal [facility] Comment on above: Performed By: #### 6 9405-9, 81615-6y7, 13574-4 ####[facility], [address], [place]. HCG Quantitativeon 8 HCG Qn m[IU]/mL Normal [facility] Comment on above: Result Comment: [...] immunoassay method. Performed By: #### 6 9405-9, 62269-5j7, 12006-8 ####[facility], [address] [place], [place]. Urinalysis Microscopicon Urine, bacteria in sediment RARE Abnormal NONE/HPF [facility] Comment on above: Performed By: #### 6 9405-9, 69519-8n4, 75412-1 ####[facility], [address] [place], [place]. Urine, erythrocytes in sediment by area 4126 /[HPF] High 0-5 [facility] Comment on above: Performed By: #### 6 9405-9, 74823-8q4, 69741-3 ####[facility], [address] [place], [place]. Urine, leukocytes in sedmiment 191 /[HPF] High 0-5 [facility] Comment on above: Performed By: #### 6 9405-9, 80680-5h3, 47090-6 ####[facility], [address] [place], [place]. Urine, mucus presence in sediment FEW Abnormal NONE/LPF [facility] Comment on above: Performed By: #### 6 9405-9, 74083-1p4, 99870-9 ####[facility], [address] [facility] [place]. Urine, squamous cells in sediment MODERATE Abnormal FEW/LPF [facility] Comment on above: Performed By: #### 6 9405-9, 79417-1w3, 00464-8 ####[facility], [address] [facility] [place]. Urinalysis with Microscopic Automaticon 11-15-2017 Bilirubin Urine Negative Normal NEGATIVE [facility] Comment on above: Performed By: #### 6 9405-9, 51585-4y3, 34125-6 ####[facility], [address] [place], [place]. Nitrite Urine Negative Normal NEGATIVE [facility] Comment on above: Performed By: #### 6 9405-9, 91359-0q5, 53073-9 ####[facility], [address] [place], [place]. Urine, appearance TURBID Abnormal CLEAR [facility] Comment on above: Performed By: #### 6 9405-9, 81140-2l8, 39200-8 ####[facility], [address] [facility], [place], [place]. Urine, color YELLOW Normal YELLOW [facility] Comment on above: Performed By: #### 6 9405-9, 66891-5a3, 75357-6 ####[facility], [address], [place], [place]. Urine, glucose presence 500MG/DL Abnormal NORMAL [facility] Comment on above: Performed By: #### 6 9405-9, 19800-4s9, 83670-4 ####[facility], [address] Urine, hemoglobin presence 300/UL Abnormal NEGATIVE [facility] Comment on above: Performed By: #### 6 9405-9, 73851-0i4, 53220-3 ####[facility], [address] [place], [place]. Urine, ketones presence 5MG/DL Abnormal NEGATIVE [facility] Comment on above: Performed By: #### 6 9405-9, 02887-3u5, 53538-3 ####[facility], [address] [place], [place]. Urine, leukocyte esterase presence 25/UL Abnormal NEGATIVE [facility] Comment on above: Performed By: #### 6 9405-9, 56935-4u0, 01546-3 ####[facility], [address] [place], [place]. Urine, pH 6.0 [pH] Normal 4.5-8.0 [facility] Comment on above: Performed By: #### 6 9405-9, 65389-0p0, 60113-0 ####[facility], [address] [place] [address]. Urine, protein 100 mg/dL Abnormal NEGATIVE [facility] Comment on above: Performed By: #### 6 9405-9, 98480-6x4, 85541-5 ####[facility], [address] [place], [place]. Urine, specific gravity 1.026 Normal 1.002-1.030 [facility] Comment on above: Performed By: #### 6 9405-9, 87650-1b4, 63470-0 ####[facility], [address] [place] [address]. Urobilinogen Urine NORMAL Normal NORMAL [facility] Comment on above: Performed By: #### 6 9405-9, 35015-9g6, 23663-9 ####[facility], [address] [place], [place]. ED Physician Noteson 018 ED Physician Notes Chief Complaint nauseaED Assigned Provider/Time Time Seen: Poncho El / 10/09/2017 18:37History of Present Illness I have introduced myself as a Physician [employer] and informed the patient of the supervising/collaborati [...] Laboratory POC Urinalysis Manual (CO) Priti WEBSTER [facility] October 09, 2017 18:34 Completed POC Urine Test (CO) Priti WEBSTER [facility] October 09, 2017 18:34 Completed Urinalysis with Reflex Microscopic Reynaldo PAPoncho October 09, 2017 18:44 Completed BMP (Basic Metabolic Panel) Reynaldo GOODWIN [facility] October 09, 2017 18:44 Completed CBC with Differential Reynaldo BUDDY [facility] Gonzlaez October 09, 2017 18:44 Completed Lipase Reynaldo GOODWIN [facility] October 09, 2017 18:44 Completed Hepatic Function Panel Reynaldo GOODWIN [facility] October 09, 2017 18:44 Completed U MICRO Reynaldo GOODWIN [facility] October 09, 2017 19:28 Completed GFRAF Reynaldo GOODWIN [facility] October 09, 2017 19:32 Completed GFRNAF Reynaldo GOODWIN [facility] October 09, 2017 19:32 Completed Normal [facility] ED Physician Notes PDF Normal [facility] Basic Metabolic Panelon 05-0 Anion gap 12.0 mmol/L Normal 6.0-18.0 [facility] Comment on above: Result Comment: CARSON BARKER NOTE:The calculated Anion Gap(AGAP) does not include Potassium. Performed By: #### 6 9405-9, 72958-4a7, 97817-5 ####[facility], [address], [place]. Calcium 10.2 mg/dL Normal 8.9-10.3 [facility] Comment on above: Performed By: #### 6 9405-9, 70453-1d6, 42104-1 ####[facility], [address] [place]. Chloride 102 mmol/L Normal 98-107 [facility] Comment on above: Performed By: #### 6 9405-9, 94034-8t0, 68840-8 ####[facility], [address] [facility] [place]. CO2 23 mmol/L Normal 22-32 [facility] Comment on above: Performed By: #### 6 9405-9, 38831-8v2, 73819-9 ####[facility], [address] [place], [place]. Creatinine 0.84 mg/dL Normal 0.66-1.30 [facility] Comment on above: Performed By: #### 6 9405-9, 40460-0l4, 06236-1 ####[facility], [address] [place], [place]. Glucose mass conc 252 mg/dL High 70-110 [facility] Comment on above: Performed By: #### 6 9405-9, 31307-5z7, 63625-9 ####[facility], [address] [place], [place]. Potassium molar conc 3.6 mmol/L Normal 3.6-5.1 [facility] Comment on above: Performed By: #### 6 9405-9, 43677-1a7, 32846-5 ####[facility], [address] [place], [place]. Sodium 137 mmol/L Normal 136-145 [facility] Comment on above: Performed By: #### 6 9405-9, 18942-1c9, 85044-3 ####[facility], [address] [place], [place]. Urea nitrogen 15 mg/dL Normal 8-20 [facility] Comment on above: Performed By: #### 6 9405-9, 79861-0p8, 97007-6 ####[facility], [address] [place], [place]. CBC with Differentialon 05-0 Basophils Auto #/vol (Bld) 0.10 thou/mcL Normal 0.00-0.20 [facility] Comment on above: Performed By: #### 6 9405-9, 61022-4z0, 10626-2 ####[facility], [address] [place], [place]. Basophils Auto #/vol (Bld) 0.7 % Normal 0.0-2.0 [facility] Comment on above: Performed By: #### 6 9405-9, 30044-4k7, 77264-3 ####[facility], [address] [place], [place]. Eosinophils 0.20 thou/mcL Normal 0.00-0.70 [facility] Comment on above: Performed By: #### 6 9405-9, 54195-7n8, 76527-0 ####[facility], [address] [place], [place]. Eosinophils/100 leukocytes 1.8 % Normal 0.0-7.0 [facility] Comment on above: Performed By: #### 6 9405-9, 33648-3x7, 29731-3 ####[facility], [address] [place], [place]. Erythrocyte distribution width Auto Ratio (RBC) 15.0 % High 11.0-14.8 [facility] Comment on above: Performed By: #### 6 9405-9, 24953-0e0, 60126-9 ####[facility], [address] [place], [place]. Erythrocytes (RBC) 5.60 million/mcL High 3.80-5.10 [facility] Comment on above: Performed By: #### 6 9405-9, 16649-1e9, 53685-6 ####[facility], [address] [place], [place]. Hematocrit (HCT) 43.9 % Normal 35.0-45.0 [facility] Comment on above: Performed By: #### 6 9405-9, 41038-0x9, 92107-3 ####[facility], [address] [place], [place]. Hemoglobin mass conc (Bld) 14.8 g/dL Normal 12.0-16.0 [facility] Comment on above: Performed By: #### 6 9405-9, 17895-5g6, 10211-0 ####[facility], [address] [facility] [place] Lymphocytes 2.50 thou/mcL Normal 1.00-4.80 [facility] Comment on above: Performed By: #### 6 9405-9, 05493-4h2, 76181-6 ####[facility], [address] [place]. Lymphocytes/100 leukocytes 29.2 % Normal 22.0-44.0 [facility] Comment on above: Performed By: #### 6 9405-9, 89488-4x4, 97718-5 ####[facility], [address] [place], [place] MCH 26.4 Picograms Low 27.0-34.0 [facility] Comment on above: Performed By: #### 6 9405-9, 77534-8m4, 60557-8 ####[facility], [address] [facility], [place], [place]. MCHC mass conc (RBC) 33.6 g/dL Normal 32.0-36.0 [facility] Comment on above: Performed By: #### 6 9405-9, 28490-9w4, 69510-5 ####[facility], [address] [facility] [place] MCV 78.4 fL Low 80.0-97.0 [facility] [facility] Comment on above: Performed By: #### 6 9405-9, 91365-9y7, 61347-6 ####[facility], [address] [place]. Monocytes 0.40 thou/mcL Normal 0.00-0.90 [facility] Comment on above: Performed By: #### 6 9405-9, 99593-4y2, 18051-9 ####[facility], [address] [place], [place]. Monocytes/100 leukocytes 4.1 % Normal 0.0-12.0 [facility] Comment on above: Performed By: #### 6 9405-9, 02859-7i4, 37014-7 ####[facility], [address] [place], [place]. Neutrophils 5.50 thou/mcL Normal 1.80-7.70 [facility] Comment on above: Performed By: #### 6 9405-9, 78189-0d8, 33875-0 ####[facility], [address] [place], [place]. Neutrophils/100 WBC Auto (Bld) 64.2 % Normal 40.0-70.0 [facility] Comment on above: Performed By: #### 6 9405-9, 51754-6b0, 02458-5 ####[facility], [address] [place], [place]. Platelet mean volume (PMV) 8.0 fL Normal 6.2-12.1 [facility] Comment on above: Performed By: #### 6 9405-9, 91635-0p2, 15741-7 ####[facility], [address] [place], [place]. Platelets 293 thou/mcL Normal 142-424 [facility] Comment on above: Performed By: #### 6 9405-9, 60621-5p3, 95411-8 ####[facility], [address] [place], [place]. WBC (Leukocytes) 8.5 thou/mcL Normal 4.6-10.2 [facility] Comment on above: Performed By: #### 6 9405-9, 53154-9u5, 85960-7 ####[facility], [address] [place], [place]. Depart Summaryon 10-09-2017 Depart Summary EMERGENCY DEPARTMENT DISCHARGE SUMMARYPATIENT NAME:MELISSA BYRNE MRN: (PHO)-[id number]: 22 Years SEX: Female PHONE:[phone]: 10/09/2017 6:00 PM : 1995 ATTENDING PHYSICIAN:Josie [...] Result(s): Date Order Results 10/09/2017 18:35 Specific [place] Urine POCT N 1.030 10/09/2017 18:35 pH Urine POCT N 5 10/09/2017 18:35 Urobilinogen Urine POCT N 0 mg/dL 10/09/2017 18:45 Appearance Urine A TURBID 10/09/2017 18:45 Specific [place] Urine H 1.032 10/09/2017 18:45 Glucose Urine [...] Address: Date: Verona Hilliard MD Family Practice [address] [place] [address] [phone] (1) 1 to 2 days Normal [facility] ED Pat Eduon 10-09-2017 ED Pat [place] [address] [facility] Department Discharge Instructions MELISSA BYRNE , Please provide this information to your Primary Care/Specialist Name : MELISSA BYRNE Current Date : 10/09/2017 20:40:15DOB : 1995 12:00 PM Primary Care Physician: Verona Hilliard MD Diagnosis : Acute UTI; Epigastric pain Follow-Up Instructions:MELISSA BYRNE has been given these follow-up instructions: FOLLOW-UP APPOINTMENTS: Provider: Specialty: Address: Date: Verona Hilliard MD Family Practice [address] [place] [address] [phone] (1) 1 to 2 days Laboratory Orders: [...] doses are changed, or new medications (including tbfl-ise-rlhbqwv products) are added. If you have any [...] TAKE UNTIL YOU TALK TO YOUR DOCTORNone [place] [address] [facility] Department Discharge Instructions Name: MELISSA BYRNE AMRITA Current Date: 10/09/2017 20:40:15 : 1995 12:00 PM Primary Physician: Verona Hilliard MD We would like to thank you for choosing [facility] for your emergency medical needs. We examined [...] health of those around you. Call the [place] [employer] at 0-118-UAAX-USA or the [place] Cancer Society at 5-951-ZQH-9910 for more information.High blood pressure: Your screening blood pressure today was 114 mm Hg / . Hypertension (high blood pressure) is blood pressure over 120/80. People with hypertension should contact their primary care provider within 30 days to follow up. Check your patient portal for additional blood pressure information.Immunizatio ns:Immunization is a way to protect against deadly infections. Discuss this with your child's grommet machine operator, or Public Health Department. Your family practice doctor can determine if you need pneumonia or flu vaccine. The [facility] Department can be reached at .Domestic [...] suicide hotline, anytime day or night, at 3-259-859-APUU. Pharmacy Information:Below is a list of 24 hour pharmacies that we are aware of. We suggest that you call the specific pharmacy for their hours before traveling to a location. Hours may vary on holidays. [facility] Pharmacy [facility] [address] [address] [phone] [place] [address] [phone] [place] [address] [phone] [place] [address] [phone], [place] [phone] [place] [address] [phone] [place] [address] [phone] Take all medications as directed. If you need prescription assistance, contact the following agencies:?? [facility] for Prescription Assistance at or www.pparx.org?? [facility] Best Rx at or www.Invieostrx.org?? [employer].EldarionRxfor[MD] is a site with many valuable coupons [...] alleviate any discomfort you are experiencing:???Only take pbet-pkt-gnjpbbn or prescription medicines as directed by your [...] Document Reviewed: 02/02/2014Albanevpapa Interactive Patient Education ?2016 [employer] Inc.Obstetrics and GynecologyUrinary Tract InfectionUrinary tract infections (UTIs) [...] Document Reviewed: 07/03/2012Francisca Interactive Patient Education ?2016 [employer].VIRUSES OR BACTERIA: WHAT'S GOT YOU SICK?Antibiotics [...] patient education materials, prescriptions and follow-up instructions: KennyMARGOTER MELISSA JUSTINE, have received the above patient education materials/instructions and have verbalized understanding: Date Time Patien t Signature Date Time Provid er Signature Normal [facility] GFRaaon 10-09-2017 eGFR (black) mL/min/{1.73_m2} Normal [facility] Comment on above: Result Comment: The MDRD equation has not been validated for those over 70 years, women, patients with serious co-morbid conditions, or with extremes of bodysize, muscle mass of nutritional status. Performed By: #### 6 9405-9, 05673-3d8, 37986-7 ####[facility], [address] [place], [place]. GFRbbon 10-09-2017 eGFR (non-black) mL/min/{1.73_m2} Normal [facility] Comment on above: Performed By: #### 6 9405-9, 04471-2p3, 68880-2 ####[facility], [address] [place], [place]. Hepatic Function Panelon Alanine aminotransferase (ALT) 45 Units/L Normal 14-63 [facility] Comment on above: Performed By: #### 6 9405-9, 88505-3j7, 90235-1 ####[facility], [address] [place], [place]. Albumin 4.6 g/dL Normal 3.5-4.8 [facility] Comment on above: Performed By: #### 6 9405-9, 68787-3f9, 71926-3 ####[facility], [address] [place], [place]. Alkaline phosphatase (ALP) 81 Units/L Normal 32-91 [facility] Comment on above: Performed By: #### 6 9405-9, 78493-6b8, 05890-9 ####[facility], [address] [place], [place]. Aspartate aminotransferase (AST) 23 Units/L Normal 15-41 [facility] Comment on above: Performed By: #### 6 9405-9, 61534-1l5, 31287-1 ####[facility], [address] [place], [place]. Bilirubin (direct) 0.0 mg/dL Low 0.1-0.5 [facility] Comment on above: Performed By: #### 6 9405-9, 64251-3x3, 26020-9 ####[facility], [address] [place], [place]. Bilirubin (total) 0.4 mg/dL Normal 0.3-1.2 [facility] Comment on above: Performed By: #### 6 9405-9, 74227-5g0, 48577-4 ####[facility], [address], [place]. Bilirubin.indirect mass conc 0.4 mg/dL Normal 0.0-1.0 [facility] Comment on above: Performed By: #### 6 9405-9, 54298-7o5, 39226-3 ####[facility], [address] [place], [place]. Protein 7.9 g/dL Normal 6.1-7.9 [facility] Comment on above: Performed By: #### 6 9405-9, 19607-0f6, 07124-3 ####[facility], [address]. Lipaseon 10-09-2017 Lipase 13 Units/L Low 22-51 [facility] Comment on above: Performed By: #### 6 9405-9, 47340-9d5, 85036-2 ####[facility], [address]. Urinalysis Microscopicon Urine, erythrocytes in sediment by area 5 /[HPF] Normal 0-5 [facility] Comment on above: Performed By: #### 6 9405-9, 55610-7x7, 53687-8 ####[facility], [address] [place], [place]. Urine, leukocytes in sedmiment 6 /[HPF] High 0-5 [facility] Comment on above: Performed By: #### 6 9405-9, 41063-8a4, 29570-8 ####[facility], [address] [place], [place]. Urine, mucus presence in sediment RARE Abnormal NONE/LPF [facility] Comment on above: Performed By: #### 6 9405-9, 09650-4z2, 99468-1 ####[facility], [address] [place], [place]. Urine, squamous cells in sediment MANY Abnormal FEW/LPF [facility] Comment on above: Performed By: #### 6 9405-9, 90980-6s8, 63159-0 ####[facility], [address] [place], [place]. Urinalysis with Microscopic Automaticon 10-09-2017 Bilirubin Urine Negative Normal NEGATIVE [facility] Comment on above: Performed By: #### 6 9405-9, 69874-7a5, 92256-7 ####[facility], [address] [place], [place]. Nitrite Urine Negative Normal NEGATIVE [facility] Comment on above: Performed By: #### 6 9405-9, 00778-2p1, 99711-1 ####[facility], [address], [place]. Urine, appearance TURBID Abnormal CLEAR [facility] Comment on above: Performed By: #### 6 9405-9, 73616-6s3, 99210-4 ####[facility], [address]. Urine, color PACHECO Normal YELLOW [facility] Comment on above: Performed By: #### 6 9405-9, 42016-6a0, 75919-5 ####[facility], [address]. Urine, glucose presence 150MG/DL Abnormal NORMAL [facility] Comment on above: Performed By: #### 6 9405-9, 37839-9u0, 10006-4 ####[facility], [address]. Urine, hemoglobin presence 10/UL Abnormal NEGATIVE [facility] Comment on above: Performed By: #### 6 9405-9, 05664-9g7, 73413-8 ####[facility], [address] [place], [place]. Urine, ketones presence 5MG/DL Abnormal NEGATIVE [facility] Comment on above: Performed By: #### 6 9405-9, 54393-0v2, 26015-9 ####[facility], [address]. Urine, leukocyte esterase presence 25/UL Abnormal NEGATIVE [facility] Comment on above: Performed By: #### 6 9405-9, 72796-8s3, 80366-1 ####[facility], [address] [place], [place]. Urine, pH 5.0 [pH] Normal 4.5-8.0 [facility] Comment on above: Performed By: #### 6 9405-9, 39900-2l9, 92436-5 ####[facility], [address], [place]. Urine, protein 30 mg/dL Abnormal NEGATIVE [facility] Comment on above: Performed By: #### 6 9405-9, 78285-6z0, 37043-8 ####[facility], [address] [place], [place]. Urine, specific gravity 1.032 High 1.002-1.030 [facility] Comment on above: Performed By: #### 6 9405-9, 84110-7q6, 20923-1 ####[facility], [address] [place] [address]. Urobilinogen Urine NORMAL Normal NORMAL [facility] Comment on above: Performed By: #### 6 9405-9, 15852-2k2, 68213-7 ####[facility], [address] [place] [address]. ED Physician Noteson 04-26-2 018 ED Physician Notes Chief Complaint Abdominal pain/Vaginal bleedED Assigned Provider/Time Time Seen: Poncho El / 09/27/2017 20:20History of Present Illness I have reviewed the nurse's note. I introduced myself as the Physician Recording [employer] Internship and informed the patient of the supervising [...] today is wanting her. Patient has an RN STARS physician who reside at [facility]. Patient is to look for a new one here in [place]. Patient denies any nausea or vomiting. No diarrhea. No urinary related symptoms. 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 No need for [...] El September 27, 2017 21:34 CompletedDone Normal [facility] ED Physician Notes PDF Normal [facility] Depart Summaryon 09-28-2017 Depart Summary EMERGENCY DEPARTMENT DISCHARGE SUMMARYPATIENT NAME:MELISSA BYRNE MRN: COL)-[id number]: 22 Years SEX: Female PHONE:[id number]: 09/27/2017 7:06 PM : 1995 ATTENDING PHYSICIAN:Raphael Cabezas MD PCP: Verona Hilliard MD CHIEF COMPLAINT: Abdominal pain/Vaginal bleed Allergies NKAProblems Active Mood disorder Diabetes DISCHARGE DIAGNOSIS: Dysfunctional uterine bleeding; Pelvic pain DISCHARGE INSTRUCTIONS: Dysfunctional Uterine Bleeding; Pelvic Pain, Female ED PHYSICIAN DOCUMENTATION: History of Present IllnessI have reviewed the nurse's note. ? I introduced myself as the Physician Recording [employer] Internship and informed the patient of the supervising [...] started today?is wanting her. Patient has an RN STARS physician who reside at [facility]. Patient?is to look for a new one here in?[place]. Patient?denies any nausea or vomiting. No diarrhea. [...] will be advised to follow-up with [facility] RN STARS clinic for further evaluation.?No need for any [...] Result(s): Date Order Results 09/27/2017 19:38 Specific [place] Urine POCT N 1.020 09/27/2017 19:38 pH [...] adnexal mass. No ovarian torsion.IUD in the uterus.Slayden thanks you for the opportunity to care for your patient. Workstation ID: [id number] - [id number] FOLLOW UP:FOLLOW-UP APPOINTMENTS: Provider: Specialty: Address: Date: Verona Hilliard MD Family [address] [phone] (1) Follow-up as needed Provider: Specialty: Address: Date: [facility] ([address] [address] (2) Follow-up as needed Comment: Follow-up with [facility] RN STARS also be further evaluated. Call Friday and make an appointment. Normal [facility] ED Pat Eduon 09-28-2017 ED Pat [address] [address] Emergency Department Discharge Instructions MELISSA BYRNE , Please provide this information to your Primary Care/Specialist Name : MELISSA BYRNE Current Date : 09/27/2017 23:44:47DOB : 1995 12:00 PM Primary Care Physician: Verona Hilliard MD Diagnosis : Dysfunctional uterine bleeding; Pelvic pain Follow-Up Instructions:MELISSA BYRNE has been given these follow-up instructions: FOLLOW-UP APPOINTMENTS: Provider: Specialty: Address: Date: Verona Hilliard MD Family Practice [address] [place] [address] [phone] (1) Follow-up as needed Provider: Specialty: Address: Date: [facility] ([facility]) [address] [place] [address] (0) Follow-up as needed Comment: Follow-up with [facility] RN STARS also be further evaluated. Call Friday and [...] Servicios de Emergencia Name MELISSA BYRNE MRN ([facility])-[id number] PLEASE READ THE FOLLOWING REGARDING YOUR MEDICATIONS [...] doses are changed, or new medications (including tghb-puk-ktrnzbc products) are added. If you have any [...] TAKE UNTIL YOU TALK TO YOUR DOCTORNone [place] [address] Emergency Department Discharge Instructions Name: MELISSA BYRNE AMRITA Current Date: 09/27/2017 23:44:47 : 1995 12:00 PM Primary Physician: Verona Hilliard MD We would like to thank you for choosing [facility] for your emergency medical needs. We examined [...] health of those around you. Call the [place] [employer] at 5-543-VUWC-USA or the [place] Cancer Society at 4-865-EBJ-0987 for more information.High blood pressure: Your screening blood pressure today was 118 mm Hg / . Hypertension (high blood pressure) is blood pressure over 120/80. People with hypertension should contact their primary care provider within 30 days to follow up. Check your patient portal for additional blood pressure information.Immunizatio ns:Immunization is a way to protect against deadly infections. Discuss this with your child's grommet machine operator, or Public Health Department. Your family practice doctor can determine if you need pneumonia or flu vaccine. The [facility] Department can be reached at .Domestic [...] suicide hotline, anytime day or night, at 5-728-275-ASIF. Pharmacy Information:Below is a list of 24 hour pharmacies that we are aware of. We suggest that you call the specific pharmacy for their hours before traveling to a location. Hours may vary on holidays. [facility] Pharmacy [place] [address] [address] [address] [phone] [place] [address] [phone] [place] [address] [phone] [address] [phone] [place] [address] [phone] [address] [phone] [place] [address] [phone] Take all medications as directed. If you need prescription assistance, contact the following agencies:?? Partnership for Prescription Assistance at or www.pparx.org?? [place]' Best Rx at or www.Zumigobestrx.org?? www.EldarionRCOCC.Repka.com is a site with many valuable coupons [...] or later than usual. They may be screwhead stoner and polisher, have blood clots or be heavier. You [...] change or switch medicines without consulting your caregiver.???half-way heavy bleeding may result in iron deficiency. [...] Released: 05/23/2001 Document Revised: 08/17/2012 Document Reviewed: 08/21/2015Albanevpapa Interactive Patient Education ?2016 [employer] Inc.Pelvic Pain, FemaleFemale pelvic pain can be [...] vaginal discharge.???Blood tests. HOME CARE INSTRUCTIONS???Only take zkmz-xcp-brhqobv or prescription medicines for pain, discomfort, or [...] Document Reviewed: 09/14/2012Francisca Interactive Patient Education ?2016 [employer]><><><><><><><><>< ><><><><><><><><><><><> <><><><> Patient Visit Summary Signature MELISSA BYRNE has been given the following list of patient education materials, prescriptions and follow-up instructions: CHAVEZ [facility] A[place]ANDRIA JUSTINE, have received the above patient education materials/instructions and have verbalized understanding: Date Time Patien t Signature Date Time Provid er Signature Normal [facility] NV Duplex Abd/Pelvis Retrope r [...] adnexal mass. No ovarian torsion.IUD in the uterus.Slayden thanks you for the opportunity to care for your patient. Workstation ID: [id number] - [id number] FINAL REPORT Dictated By: Hiro Newberry MD 09/27/2017 22:18Assigned Physician: Hiro Newberry MD JReviepablo and Electronically Signed By: Hiro Newberry MD 09/27/2017 22:21Transcribed by: TAMI 09/27/2017 22:18Technologist: SIMI [facility] US Pelvis Non-OB Completeon 09-28-2017 [...] adnexal mass. No ovarian torsion.IUD in the uterus.Slayden thanks you for the opportunity to care for your patient. Workstation ID: [id number] - [id number] FINAL REPORT Dictated By: Hiro Newberry MD 09/27/2017 22:18Assigned Physician: Hiro Newberry MD JRjanice and Electronically Signed By: Hiro Newberry MD 09/27/2017 22:21Transcribed by: TAMI 09/27/2017 22:18Technologist: SIMI [facility] US Transvaginalon 09-28-2017 US Transvaginal [...] adnexal mass. No ovarian torsion.IUD in the uterus.Slayden thanks you for the opportunity to care for your patient. Workstation ID: [id number] - [id number] FINAL REPORT Dictated By: Hiro Newberry MD 09/27/2017 22:18Assigned Physician: Hiro Newberry MD and Electronically Signed By: Hiro Newberry MD 09/27/2017 22:21Transcribed by: TAMI 09/27/2017 22:18Technologist: SIMI [facility] Basic Metabolic Panelon 09-07 Anion gap 11.0 mmol/L Normal 6.0-18.0 [facility] Comment on above: Result Comment: CARSON BARKER NOTE:The calculated Anion Gap(AGAP) does not include Potassium. Performed By: #### 6 9405-9, 84649-9u4, 47573-3 ####[facility], [address], [place]. Calcium 9.9 mg/dL Normal 8.9-10.3 [facility] Comment on above: Performed By: #### 6 9405-9, 26048-0n0, 29058-4 ####[facility], [address] [place], [place]. Chloride 101 mmol/L Normal 98-107 [facility] Comment on above: Performed By: #### 6 9405-9, 95021-0k3, 00019-0 ####[facility], [address] CO2 22 mmol/L Normal 22-32 [facility] Comment on above: Performed By: #### 6 9405-9, 90157-5u4, 08886-7 ####[facility], [address]. Creatinine 0.56 mg/dL Low 0.66-1.30 [facility] Comment on above: Performed By: #### 6 9405-9, 42142-8h2, 59776-6 ####[facility], [address]. Glucose mass conc 252 mg/dL High 70-110 [facility] Comment on above: Performed By: #### 6 9405-9, 64150-7g9, 03708-2 ####[facility], [address]. Potassium molar conc 3.9 mmol/L Normal 3.6-5.1 [facility] Comment on above: Performed By: #### 6 9405-9, 89162-2b4, 55232-0 ####[facility], [address] Sodium 134 mmol/L Low 136-145 [facility] Comment on above: Performed By: #### 6 9405-9, 46964-0s0, 52867-6 ####[facility], [address] [place]. Urea nitrogen 12 mg/dL Normal 8-20 [facility] Comment on above: Performed By: #### 6 9405-9, 55208-6d1, 32631-0 ####[facility], [address] CBCon 09-18-2017 Erythrocyte distribution width Auto Ratio (RBC) 14.3 % Normal 11.0-14.8 [facility] Comment on above: Performed By: #### 2 4317-0 ####[facility], [address]. Erythrocytes (RBC) 5.98 million/mcL High 3.80-5.10 [facility] Comment on above: Performed By: #### 2 4317-0 ####[facility], [address] [place], [place]. Hematocrit (HCT) 45.7 % High 35.0-45.0 [facility] Comment on above: Performed By: #### 2 4317-0 ####[facility], [address] [place], [place]. Hemoglobin mass conc (Bld) 15.3 g/dL Normal 12.0-16.0 [facility] Comment on above: Performed By: #### 2 7-0 ####[facility], [address] [place], [place]. MCH 25.6 Picograms Low 27.0-34.0 [facility] Comment on above: Performed By: #### 2 4317-0 ####[facility], [address] [place], [place]. MCHC mass conc (RBC) 33.5 g/dL Normal 32.0-36.0 [facility] Comment on above: Performed By: #### 2 7-0 ####[facility], [address] [place], [place]. MCV 76.5 fL Low 80.0-97.0 [facility] Comment on above: Performed By: #### 2 4317-0 ####[facility], [address] [place], [place]. Platelet mean volume (PMV) 8.0 fL Normal 6.2-12.1 [facility] Comment on above: Performed By: #### 2 4317-0 ####[facility], [address] [place], [place]. Platelets 330 thou/mcL Normal 142-424 [facility] Comment on above: Performed By: #### 2 4317-0 ####[facility], [address] [place], [place]. WBC (Leukocytes) 9.9 thou/mcL Normal 4.6-10.2 [facility] Comment on above: Performed By: #### 2 4317-0 ####[facility], [address] [place] [address]. Depart Summaryon 09-18-2017 Depart Summary EMERGENCY DEPARTMENT DISCHARGE SUMMARYPATIENT NAME:MELISSA BYRNE : 22 Years SEX: Female PHONE:[id number]: 09/18/2017 2:10 PM : 1995 ATTENDING PHYSICIAN:Josie [...] Result(s): Date Order Results 09/18/2017 15:25 Specific [place] Urine POCT N 1.020 09/18/2017 15:25 pH [...] fluid. This may simply be physiologic in nature.Slayden thanks you for the opportunity to care [...] fluid. This may simply be physiologic in nature.Slayden thanks you for the opportunity to care for your patient. Workstation ID: [id number] - [id number] FOLLOW UP:FOLLOW-UP APPOINTMENTS: Provider: Specialty: Address: Date: Verona Hilliard MD Family Practice [address] [place] [address] [phone] (1) 1 to 2 days Normal [facility] ED Pat Eduon 09-18-2017 ED Pat [place] [address] [facility] Discharge Instructions MELISSA BYRNE , Please provide this information to your Primary Care/Specialist Name : MELISSA BYRNE Current Date : 09/18/2017 17:27:36DOB : 1995 12:00 PM Primary Care Physician: Verona Hilliard MD Diagnosis : Hyperglycemia; Pelvic pain Follow-Up Instructions:MELISSA BYRNE has been given these follow-up instructions: FOLLOW-UP APPOINTMENTS: Provider: Specialty: Address: Date: Verona Hilliard MD [address] [phone] (1) 1 to 2 days Laboratory Orders: [...] [facility] Name MELISSA BYRNE MRN (COL)-[id number] PLEASE READ THE FOLLOWING REGARDING YOUR MEDICATIONS [...] doses are changed, or new medications (including sbao-xle-sacorcx products) are added. If you have any [...] TAKE UNTIL YOU TALK TO YOUR DOCTORNone [place] [address] [facility] Department Discharge Instructions Name: MELISSA BYRNE Current Date: 09/18/2017 17:27:36 : 1995 12:00 PM Primary Physician: Verona Hilliard MD We would like to thank you for choosing [facility] for your emergency medical needs. We examined [...] health of those around you. Call the [place] [employer] at 2-040-WHQU-USA or the [place] [employer] at 4-430-TGW-5663 for more information.High blood pressure: Your screening blood pressure today was 132 mm Hg / . Hypertension (high blood pressure) is blood pressure over 120/80. People with hypertension should contact their primary care provider within 30 days to follow up. Check your patient portal for additional blood pressure information.Immunizatio ns:Immunization is a way to protect against deadly infections. Discuss this with your child's grommet machine operator, or Public Health Department. Your family practice doctor can determine if you need pneumonia or flu vaccine. [facility] can be reached at .Domestic [...] suicide hotline, anytime day or night, at 0-660-374-FYZO. Pharmacy Information:Below is a list of 24 hour pharmacies that we are aware of. We suggest that you call the specific pharmacy for their hours before traveling to a location. Hours may vary on holidays. [facility] [address] [place] [address] [phone] [address] [phone] [address] [phone] [place] [place] [address] [phone] [place] [address] [phone] [place] [address] [phone] [place] [address] [phone] Take all medications as directed. If you need prescription assistance, contact the following agencies:?? [facility] for Prescription Assistance at or www.Welliko.org?? [facility] Rx at or www.Invieostrx.org?? [employer] is a site with many valuable coupons [...] alleviate any discomfort you are experiencing:???Only take jvkq-hqk-kulizzt or prescription medicines as directed by your [...] Document Reviewed: 02/02/2014Francisca Interactive Patient Education ?2016 [employer]Obstetrics and GynecologyPelvic Pain, FemaleFemale pelvic pain can [...] vaginal discharge.???Blood tests. HOME CARE INSTRUCTIONS???Only take rpoc-fxh-urapnqq or prescription medicines for pain, discomfort, or [...] Document Reviewed: 09/14/2012Francisca Interactive Patient Education ?2016 [employer].Preventive MedicineBlood Glucose Monitoring, AdultMonitoring your blood glucose [...] Document Reviewed: 10/18/2013Francisca Interactive Patient Education ?2016 [employer]><><><><><><><><>< ><><><><><><><><><>< ><><><><><> Patient Visit Summary Signature MELISSA BYRNE has been given the following list of patient education materials, prescriptions and follow-up instructions: CHAVEZ Cox ALEXANDRIA JUSTINE, have received the above patient education materials/instructions and have verbalized understanding: Date Time Patien t Signature Date Time Provid er Signature Normal [facility] ED Physician Noteson 018 ED [...] Patient is a 26 years old left Maur[place] male with no known significant past medical [...] and patient was advised to follow-up with PCP/RN STARS. Patient will be prescribed naproxen for pain [...] This may simply be physiologic in nature. Slayden thanks you for the opportunity to care for your patient. Workstation ID: [id number] - [id number] ORDERS PLACED: Laboratory Urinalysis Manual POCT (CO) Poncho El September 18, 2017 15:07 Completed U[facility] ([facility]08 Completed CBC Reynaldo GOODWIN [facility] September 18, 2017 15:28 Completed BMP (Basic Metabolic Panel) Reynaldo GOODWIN [facility] September 18, 2017 15:29 Completed GFRAF Reynaldo GOODWIN [facility] September 18, 2017 16:01 Completed GFRNAF Reynaldo GOODWIN [facility] September 18, 2017 16:01 Completed Xray [place] Duplex Abd/Pelvis Retroper Complete Poncho El September 18, 2017 15:[address] / MRI / Ultrasound US [facility], [facility] 15:58 Completed Ultrasound Pelvis Non-OB Complete [facility]aldo GOODWIN [facility] September 18, 2017 15:29 Completed Normal [facility] ED Physician Notes PDF Normal [facility] GFRaaon 09-18-2017 eGFR (black) mL/min/{1.73_m2} Normal [facility] Comment on above: Result Comment: The MDRD equation has not been validated for those over 70 years, women, patients with serious co-morbid conditions, or with extremes of bodysize, muscle mass of nutritional status. Performed By: #### 6 9405-9, 79515-2x0, 54332-1 ####[facility], [address] [place], [place]. GFRbbon 09-18-2017 eGFR (non-black) mL/min/{1.73_m2} Normal [facility] Comment on above: Performed By: #### 6 9405-9, [id number], 49270-7 ####[facility], [address]. [place] Duplex Abd/Pelvis Retrope r Completeon [...] MD 09/18/2017 16:58Assigned Physician: Miguel Espinosa MD CRenathnaaeld and Electronically Signed By: Miguel Espinosa MD 09/18/2017 17:01Transcribed by: TAMI 09/18/2017 16:58Technologist: LG Normal [facility] US Pelvis Non-OB Completeon 09-18-2017 [...] fluid. This may simply be physiologic in nature.Slayden thanks you for the opportunity to care for your patient. Workstation ID: [id number] - [id number] FINAL REPORT Dictated By: Miguel Espinosa MD 09/18/2017 16:58Assigned Physician: Miguel Espinosa MD CRenathanaeld and Electronically Signed By: Miguel Espinosa MD 09/18/2017 17:01Transcribed by: TAMI 09/18/2017 16:58Technologist: LARA Normal [facility] US Transvaginalon 09-18-2017 US Transvaginal [...] fluid. This may simply be physiologic in nature.Slayden thanks you for the opportunity to care for your patient. Workstation ID: [id number] - [id number] FINAL REPORT Dictated By: Miguel Espinosa MD 09/18/2017 16:58Assigned Physician: Miguel Espinosa MD CReviewed and Electronically Signed By: Miguel Espinosa MD 09/18/2017 17:01Transcribed by: TAMI 09/18/2017 16:58Technologist: LARA Normal [facility] Vital Signs Date Time Vital Sign Value Performing Clinician Facility 10-01-2025 08:17-0400 Body height 157.5 cm Jamari Byrne MD Work Phone: [facility] 03-09-2025 08:17-0400 Body mass index (BMI) [Ratio] 32.74 kg/m2 Jamari Byrne MD Work Phone: [facility] 03-09-2025 08:17-0400 Body weight 81.19 kg Jamari Byrne MD Work Phone: [facility] 03-09-2025 08:17-0400 Diastolic blood pressure 80 mm[Hg] Jamari Byrne MD Work Phone: [facility] 03-09-2025 08:17-0400 Heart rate 78 /min Jamari Byrne MD Work Phone: [facility] 03-09-2025 08:17-0400 SaO2% (BldA) [Mass fraction] 100 % Jamari Byrne MD Work Phone: [facility] 03-09-2025 08:17-0400 Systolic blood pressure 128 mm[Hg] Jamari Byrne MD Work Phone: [facility] 02-21-2025 18:16-0400 Body mass index (BMI) [Ratio] 33.16 kg/m2 Leonie Galarza APRN-WRAPPER HAND Work Phone: [facility] 02-21-2025 18:16-0400 Body temperature 98.4 [degF] Leonie Galarza PROMOTIONAL MODEL-WRAPPER HAND Work Phone: [facility] 02-21-2025 18:16-0400 Body weight 82.24 kg Leonie Galarza APRN-WRAPPER HAND Work Phone: [facility] 02-21-2025 18:16-0400 Diastolic blood pressure 85 mm[Hg] Leonie Galarza PROMOTIONAL MODEL-WRAPPER HAND Work Phone: [facility] 02-21-2025 18:16-0400 Heart rate 118 /min Leonie Michell PROMOTIONAL MODEL-WRAPPER HAND Work Phone: [facility] 02-21-2025 18:16-0400 SaO2% (BldA) [Mass fraction] 97 % Leonie Galarza PROMOTIONAL MODEL-WRAPPER HAND Work Phone: [facility] 02-21-2025 18:16-0400 Systolic blood pressure 140 mm[Hg] Leonie Galarza PROMOTIONAL MODEL-WRAPPER HAND Work Phone: [facility] 02-19-2025 10:25-0400 Body mass index (BMI) [Ratio] 33.44 kg/m2 Ángela Praisler-Wood PROMOTIONAL MODEL.WRAPPER HAND Work Phone: [facility] 02-19-2025 10:25-0400 Body temperature 98.6 [degF] Ángela Praisler-Wood PROMOTIONAL MODEL.WRAPPER HAND Work Phone: [facility] 02-19-2025 10:25-0400 Body weight 84 kg Ángela Praisler-Wood PROMOTIONAL MODEL.WRAPPER HAND Work Phone: [facility] 02-19-2025 10:25-0400 Diastolic blood pressure 76 mm[Hg] Ángela Praisler-Wood PROMOTIONAL MODEL.WRAPPER HAND Work Phone: [facility] 02-19-2025 10:25-0400 Heart rate 105 /min Ángela Praisler-Wood PROMOTIONAL MODEL.WRAPPER HAND Work Phone: [facility] 02-19-2025 10:25-0400 Respiratory rate 18 /min Ángela Praisler-Wood PROMOTIONAL MODEL.WRAPPER HAND Work Phone: [facility] 02-19-2025 10:25-0400 SaO2% (BldA) [Mass fraction] 98 % Ángela Praisler-Wood PROMOTIONAL MODEL.WRAPPER HAND Work Phone: [facility] 02-19-2025 10:25-0400 Systolic blood pressure 118 mm[Hg] Ángela Praisler-Wood PROMOTIONAL MODEL.WRAPPER HAND Work Phone: [facility] 01-31-2025 16:33-0400 Body mass index (BMI) [Ratio] 34.09 kg/m2 Jamari Byrne MD Work Phone: [facility] 01-31-2025 16:33-0400 Body weight 84.55 kg Jamari Byrne MD Work Phone: [facility] 01-31-2025 16:33-0400 Diastolic blood pressure 90 mm[Hg] Jamari Byrne MD Work Phone: [facility] 01-31-2025 16:33-0400 Heart rate 96 /min Jamari Byrne MD Work Phone: [facility] 01-31-2025 16:33-0400 SaO2% (BldA) [Mass fraction] 98 % Jamari Byrne MD Work Phone: [facility] 01-31-2025 16:33-0400 Systolic blood pressure 130 mm[Hg] Jamari Byrne MD Work Phone: [facility] 01-28-2025 14:15-0400 Body mass index (BMI) [Ratio] 34.63 kg/m2 Issac Swank PROMOTIONAL MODEL.WRAPPER HAND Work Phone: [facility] 01-28-2025 14:15-0400 Body temperature 97.81 [degF] Issac Swank PROMOTIONAL MODEL.WRAPPER HAND Work Phone: [facility] 01-28-2025 14:15-0400 Body weight 87 kg Issac Swank PROMOTIONAL MODEL.WRAPPER HAND Work Phone: [facility] 01-28-2025 14:15-0400 Diastolic blood pressure 83 mm[Hg] Issac Swank PROMOTIONAL MODEL.WRAPPER HAND Work Phone: [facility] 01-28-2025 14:15-0400 Heart rate 102 /min Issac Swank PROMOTIONAL MODEL.WRAPPER HAND Work Phone: [facility] 01-28-2025 14:15-0400 Respiratory rate 20 /min Issac Swank PROMOTIONAL MODEL.WRAPPER HAND Work Phone: [facility] 01-28-2025 14:15-0400 SaO2% (BldA) [Mass fraction] 98 % Issac Swank PROMOTIONAL MODEL.WRAPPER HAND Work Phone: [facility] 01-28-2025 14:15-0400 Systolic blood pressure 122 mm[Hg] Issac Swank PROMOTIONAL MODEL.WRAPPER HAND Work Phone: [facility] 01-26-2025 22:00-0400 Body temperature 97.9 [degF] Dr. Jamari Byrne MD Work Phone: [facility] 01-26-2025 22:00-0400 Diastolic blood pressure 89 mm[Hg] Dr. Jamari Byrne MD Work Phone: [facility] 01-26-2025 22:00-0400 Heart rate 89 /min Dr. Jamari Byrne MD Work Phone: [facility] 01-26-2025 22:00-0400 Respiratory rate 16 /min Dr. Jamari Byrne MD Work Phone: [facility] 01-26-2025 22:00-0400 SaO2% (BldA) [Mass fraction] 97 % Dr. Jamari Byrne MD Work Phone: [facility] 01-26-2025 22:00-0400 Systolic blood pressure 132 mm[Hg] Dr. Jamari Byrne MD Work Phone: [facility] 01-26-2025 18:44-0400 Body height 157.[address] Jamari Byrne MD Work Phone: [facility] 01-26-2025 18:44-0400 Body mass index (BMI) [Ratio] 35.6 kg/m2 Dr. Jamari Byrne MD Work Phone: [facility] 01-26-2025 18:44-0400 Body weight 88.[address] Jamari Byrne MD Work Phone: [facility] 01-24-2025 16:58-0400 Diastolic blood pressure 82 mm[Hg] Ty Shannon DO Work Phone: [facility] 01-24-2025 16:58-0400 Heart rate 79 /min Ty Shannon DO Work Phone: [facility] 01-24-2025 16:58-0400 Respiratory rate 14 /min Ty Tomersen DO Work Phone: [facility] 01-24-2025 16:58-0400 SaO2% (BldA) [Mass fraction] 98 % Ty Tomersen DO Work Phone: 7(473)846-651754 [place] [address] 01-24-2025 16:58-0400 Systolic blood pressure 147 mm[Hg] Ty Tomersen DO Work Phone: 6(373)721-861954 [place] [address] 01-24-2025 14:10-0400 Body height 157.5 cm Ty Tomersen DO Work Phone: 9(559)043-387754 [place] [address] 01-24-2025 14:10-0400 Body mass index (BMI) [Ratio] 34.57 kg/m2 Ty Shannon DO Work Phone: 9(817)538-870454 [place] [address] 01-24-2025 14:10-0400 Body temperature 98.01 [degF] Ty Tomersen DO Work Phone: 9(454)188-978854 [place] [address] 01-24-2025 14:10-0400 Body weight 85.73 kg Ty Tomersen DO Work Phone: 2(265)639-661354 [place] [address] 01-23-2025 23:30-0400 Body temperature 98 [degF] Dr. Jamari Byrne MD Work Phone: [facility] 01-23-2025 23:30-0400 Diastolic blood pressure 75 mm[Hg] Dr. Jamari Byrne MD Work Phone: [facility] 01-23-2025 23:30-0400 Heart rate 74 /min Dr. Jamari Byrne MD Work Phone: [facility] 01-23-2025 23:30-0400 Respiratory rate 16 /min Dr. Jamari Byrne MD Work Phone: [facility] 01-23-2025 23:30-0400 SaO2% (BldA) [Mass fraction] 99 % Dr. Jamari Byrne MD Work Phone: [facility] 01-23-2025 23:30-0400 Systolic blood pressure 148 mm[Hg] Dr. Jamari Byrne MD Work Phone: [facility] 01-23-2025 21:07-0400 Body height 157.[address] Jamari Byrne MD Work Phone: [facility] 01-23-2025 21:07-0400 Body mass index (BMI) [Ratio] 36.6 kg/m2 Dr. Jamari Byrne MD Work Phone: [facility] 01-23-2025 21:07-0400 Body weight 90.[address] Jamari Byrne MD Work Phone: 5(043)959-396283 [address] 01-21-2025 00:34-0400 Body temperature 97.9 [degF] Dr. Jamari Byrne MD Work Phone: [facility] 01-21-2025 00:34-0400 Diastolic blood pressure 84 mm[Hg] Dr. Jamari Byrne MD Work Phone: [facility] 01-21-2025 00:34-0400 Heart rate 100 /min Dr. Jamari Byrne MD Work Phone: [facility] 01-21-2025 00:34-0400 Respiratory rate 20 /min Dr. Jamari Byrne MD Work Phone: [facility] 01-21-2025 00:34-0400 SaO2% (BldA) [Mass fraction] 100 % Dr. Jamari Byrne MD Work Phone: [facility] 01-21-2025 00:34-0400 Systolic blood pressure 123 mm[Hg] Dr. Jamari Byrne MD Work Phone: [facility] 01-20-2025 22:32-0400 Body height 157.[address] Jamari Byrne MD Work Phone: 3(849)039-620814 [place] [address] 01-20-2025 22:32-0400 Body mass index (BMI) [Ratio] 37.8 kg/m2 Dr. Jamari Byrne MD Work Phone: [facility] 01-20-2025 22:32-0400 Body weight 93.[address] Jamari Byrne MD Work Phone: [facility] 01-20-2025 10:16-0400 Body mass index (BMI) [Ratio] 37.5 kg/m2 Kelsy Radha DO Work Phone: [facility] 01-20-2025 10:16-0400 Body weight 94.2 kg Kelsy Radha DO Work Phone: [facility] 01-20-2025 10:16-0400 Diastolic blood pressure 78 mm[Hg] Kelsy Radha DO Work Phone: [facility] 01-20-2025 10:16-0400 Heart rate 91 /min Kelsy Radha DO Work Phone: [facility] 01-20-2025 10:16-0400 Systolic blood pressure 100 mm[Hg] Kelsy Radha DO Work Phone: [facility] 01-19-2025 13:15-0400 Body mass index (BMI) [Ratio] 37.01 kg/m2 Whit Schulte MD Work Phone: [facility] 01-19-2025 13:15-0400 Body weight 92.99 kg Whit Schulte MD Work Phone: [facility] 01-19-2025 13:15-0400 Diastolic blood pressure 70 mm[Hg] Whit Schulte MD Work Phone: [facility] 01-19-2025 13:15-0400 Systolic blood pressure 126 mm[Hg] Whit Schulte MD Work Phone: [facility] 12-21-2024 13:46-0400 Body mass index (BMI) [Ratio] 34.85 kg/m2 William Gramajo MD Work Phone: [facility] 12-21-2024 13:46-0400 Body weight 87.54 kg William Gramajo MD Work Phone: [facility] 12-21-2024 13:46-0400 Diastolic blood pressure 70 mm[Hg] William Gramajo MD Work Phone: [facility] 12-21-2024 13:46-0400 Systolic blood pressure 118 mm[Hg] William Gramajo MD Work Phone: [facility] 12-16-2024 20:40-0400 Diastolic blood pressure 70 mm[Hg] Dr. Jamari Byrne MD Work Phone: [facility] 12-16-2024 20:40-0400 Heart rate 75 /min Dr. Jamari Byrne MD Work Phone: [facility] 12-16-2024 20:40-0400 Systolic blood pressure 115 mm[Hg] Dr. Jamari Byrne MD Work Phone: [facility] 12-16-2024 20:12-0400 Body height 157.[address] Jamari Byrne MD Work Phone: [facility] 12-16-2024 20:12-0400 Body mass index (BMI) [Ratio] 79.3 kg/m2 Dr. Jamari Byrne MD Work Phone: [facility] 12-16-2024 20:12-0400 Body weight 196.[address] Jamari Byrne MD Work Phone: [facility] 12-16-2024 20:00-0400 Body temperature 97.9 [degF] Dr. Jamari Byrne MD Work Phone: [facility] 12-16-2024 20:00-0400 Respiratory rate 18 /min Dr. Jamari Byrne MD Work Phone: [facility] 12-16-2024 20:00-0400 SaO2% (BldA) [Mass fraction] 98 % Dr. Jamari Byrne MD Work Phone: [facility] 12-09-2024 07:37-0400 Diastolic blood pressure 80 mm[Hg] Dr. Jamari Byrne MD Work Phone: [facility] 12-09-2024 07:37-0400 Heart rate 84 /min Dr. Jamari Byrne MD Work Phone: [facility] 12-09-2024 07:37-0400 Systolic blood pressure 136 mm[Hg] Dr. Jamari Byrne MD Work Phone: [facility] 12-09-2024 07:35-0400 Body temperature 96.4 [degF] Dr. Jamari Byrne MD Work Phone: [facility] 12-09-2024 07:35-0400 Respiratory rate 16 /min Dr. Jamari Byrne MD Work Phone: [facility] 12-09-2024 07:35-0400 SaO2% (BldA) [Mass fraction] 98 % Dr. Jamari Byrne MD Work Phone: [facility] 12-08-2024 20:31-0400 Inhaled oxygen flow rate 98 L/min Dr. Jamari Byrne MD Work Phone: [facility] 12-07-2024 11:10-0400 Body height 157.[address] Jamari Byrne MD Work Phone: [facility] 12-07-2024 11:10-0400 Body mass index (BMI) [Ratio] 38.7 kg/m2 Dr. Jamari Byrne MD Work Phone: [facility] 12-07-2024 11:10-0400 Body weight [address] Jamari Byrne MD Work Phone: [facility] 12-06-2024 09:46-0400 Body mass index (BMI) [Ratio] 38.1 kg/m2 Ronaldo Rubio MD Work Phone: [facility] 12-06-2024 09:46-0400 Body weight 95.71 kg Ronaldo Rubio MD Work Phone: [facility] 12-06-2024 09:46-0400 Diastolic blood pressure 70 mm[Hg] Ronaldo Rubio MD Work Phone: [facility] 12-06-2024 09:46-0400 Systolic blood pressure 116 mm[Hg] Ronaldo Rubio MD Work Phone: [facility] 12-02-2024 10:04-0400 Body mass index (BMI) [Ratio] 38.28 kg/m2 Keshav Loving MD Work Phone: [facility] 12-02-2024 10:04-0400 Body weight 96.16 kg Keshav Loving MD Work Phone: [facility] 12-02-2024 10:04-0400 Diastolic blood pressure 72 mm[Hg] Keshav Loving MD Work Phone: [facility] 12-02-2024 10:04-0400 Systolic blood pressure 104 mm[Hg] Keshav Loving MD Work Phone: [facility] 11-30-2024 15:35-0400 Body mass index (BMI) [Ratio] 38.1 kg/m2 [facility] 11-30-2024 15:35-0400 Body weight 95.71 kg [facility] 11-30-2024 15:35-0400 Diastolic blood pressure 64 mm[Hg] [facility] 11-30-2024 15:35-0400 Systolic blood pressure 128 mm[Hg] [facility] 11-25-2024 08:37-0400 Body mass index (BMI) [Ratio] 37.56 kg/m2 William Gramajo MD Work Phone: [facility] 11-25-2024 08:37-0400 Body weight 94.35 kg William Gramajo MD Work Phone: [facility] 11-25-2024 08:37-0400 Diastolic blood pressure 79 mm[Hg] William Gramajo MD Work Phone: [facility] 11-25-2024 08:37-0400 Systolic blood pressure 123 mm[Hg] William Gramajo MD Work Phone: [facility] 11-22-2024 09:17-0400 Diastolic blood pressure 70 mm[Hg] [facility] 11-22-2024 09:17-0400 Systolic blood pressure 126 mm[Hg] [facility] 11-18-2024 14:25-0400 Body mass index (BMI) [Ratio] 37.95 kg/m2 Keshav Loving MD Work Phone: [facility] 11-18-2024 14:25-0400 Body weight 95.35 kg Keshav Loving MD Work Phone: [facility] 11-18-2024 14:25-0400 Diastolic blood pressure 80 mm[Hg] Keshav Loving MD Work Phone: [facility] 11-18-2024 14:25-0400 Systolic blood pressure 119 mm[Hg] Keshav Loving MD Work Phone: [facility] 11-15-2024 16:13-0400 Diastolic blood pressure 75 mm[Hg] Dr. Jamari Byrne MD Work Phone: [facility] 11-15-2024 16:13-0400 Heart rate 96 /min Dr. Jamari Byrne MD Work Phone: [facility] 11-15-2024 16:13-0400 Systolic blood pressure 118 mm[Hg] Dr. Jamari Byrne MD Work Phone: [facility] 11-15-2024 16:12-0400 Body temperature 97.5 [degF] Dr. Jamari Byrne MD Work Phone: [facility] 11-15-2024 16:12-0400 Respiratory rate 16 /min Dr. Jamari Byrne MD Work Phone: [facility] 11-15-2024 16:12-0400 SaO2% (BldA) [Mass fraction] 98 % Dr. Jamari Byrne MD Work Phone: [facility] 11-15-2024 16:01-0400 Body height 157.[address] Jamari Byrne MD Work Phone: [facility] 11-15-2024 16:01-0400 Body mass index (BMI) [Ratio] 37.8 kg/m2 Dr. Jamari Byrne MD Work Phone: [facility] 11-15-2024 16:01-0400 Body weight 93.[address] Jamari Byrne MD Work Phone: [facility] 11-15-2024 08:29-0400 Body mass index (BMI) [Ratio] 37.66 kg/m2 Keshav Loving MD Work Phone: [facility] 11-15-2024 08:29-0400 Body weight 94.62 kg Keshav Loving MD Work Phone: [facility] 11-15-2024 08:29-0400 Diastolic blood pressure 68 mm[Hg] Keshav Loving MD Work Phone: [facility] 11-15-2024 08:29-0400 Systolic blood pressure 120 mm[Hg] Keshav Loving MD Work Phone: [facility] 11-11-2024 09:12-0400 Body mass index (BMI) [Ratio] 37.01 kg/m2 Krys Kulkarni MD Work Phone: [facility] 11-11-2024 09:12-0400 Body weight 92.99 kg Krys Kulkarni MD Work Phone: [facility] 11-11-2024 09:12-0400 Diastolic blood pressure 70 mm[Hg] Krys Kulkarni MD Work Phone: [facility] Comment on above: true bp 116/79; 109/75; 109/75; 108/74; 101/67; 108/74 11-11-2024 09:12-0400 Systolic blood pressure 128 mm[Hg] Krys Kulkarni MD Work Phone: [facility] Comment on above: true bp 116/79; 109/75; 109/75; 108/74; 101/67; 108/74 11-08-2024 09:29-0400 Diastolic blood pressure 64 mm[Hg] [facility] 11-08-2024 09:29-0400 Systolic blood pressure 126 mm[Hg] [facility] 11-05-2024 10:18-0400 Body mass index (BMI) [Ratio] 37.12 kg/m2 Krys Kulkarni MD Work Phone: [facility] 11-05-2024 10:18-0400 Body weight 93.26 kg Krys Kulkarni MD Work Phone: [facility] 11-05-2024 10:18-0400 Diastolic blood pressure 77 mm[Hg] Krys Kulkarni MD Work Phone: [facility] 11-05-2024 10:18-0400 Systolic blood pressure 114 mm[Hg] Krys Kulkarni MD Work Phone: [facility] 11-04-2024 09:43-0400 Body mass index (BMI) [Ratio] 37.34 kg/m2 Kelsy Radha DO Work Phone: [facility] 11-04-2024 09:43-0400 Body weight 93.8 kg Kelsy Radha DO Work Phone: [facility] 11-04-2024 09:43-0400 Diastolic blood pressure 68 mm[Hg] Kelsy Radha DO Work Phone: [facility] 11-04-2024 09:43-0400 Heart rate 102 /min Kelsy Radha DO Work Phone: [facility] 11-04-2024 09:43-0400 Systolic blood pressure 104 mm[Hg] Kelsy Radha DO Work Phone: [facility] 11-02-2024 09:36-0400 Body mass index (BMI) [Ratio] 37.41 kg/m2 [facility] 11-02-2024 09:36-0400 Body weight 93.98 kg [facility] 11-02-2024 09:36-0400 Diastolic blood pressure 60 mm[Hg] [facility] 11-02-2024 09:36-0400 Systolic blood pressure 112 mm[Hg] [employer] [facility] 10-25-2024 09:21-0400 Body mass index (BMI) [Ratio] 36.47 kg/m2 Piper Julian MD Work Phone: [facility] 10-25-2024 09:21-0400 Body weight 91.63 kg Piper Julian MD Work Phone: [facility] 10-25-2024 09:21-0400 Diastolic blood pressure 71 mm[Hg] Piepr Julian MD Work Phone: [facility] 10-25-2024 09:21-0400 Systolic blood pressure 114 mm[Hg] Piper Julian MD Work Phone: [facility] 10-18-2024 13:38-0400 Body mass index (BMI) [Ratio] 36.11 kg/m2 Whit Schulte MD Work Phone: [facility] 10-18-2024 13:38-0400 Body weight 90.72 kg Whit Schulte MD Work Phone: [facility] 10-18-2024 13:38-0400 Diastolic blood pressure 60 mm[Hg] Whit Schulte MD Work Phone: [facility] 10-18-2024 13:38-0400 Systolic blood pressure 110 mm[Hg] Whit Schulte MD Work Phone: [facility] 10-16-2024 17:56-0400 Body temperature 98.1 [degF] Dr. Jamari Byrne MD Work Phone: [facility] 10-16-2024 17:56-0400 Diastolic blood pressure 71 mm[Hg] Dr. Jamari Byrne MD Work Phone: [facility] 10-16-2024 17:56-0400 Heart rate 96 /min Dr. Jamari Byrne MD Work Phone: [facility] 10-16-2024 17:56-0400 Respiratory rate 14 /min Dr. Jamari Byrne MD Work Phone: [facility] 10-16-2024 17:56-0400 SaO2% (BldA) [Mass fraction] 99 % Dr. Jamari Byrne MD Work Phone: [facility] 10-16-2024 17:56-0400 Systolic blood pressure 127 mm[Hg] Dr. Jamari Byrne MD Work Phone: [facility] 10-16-2024 17:53-0400 Body height 157.[address] Jamari Byrne MD Work Phone: [facility] 10-16-2024 17:53-0400 Body mass index (BMI) [Ratio] 36.8 kg/m2 Dr. Jamari Byrne MD Work Phone: [facility] 10-16-2024 17:53-0400 Body weight 91.[address] Jamari Byrne MD Work Phone: [facility] 10-04-2024 11:38-0400 Body mass index (BMI) [Ratio] 35.39 kg/m2 Piper Julian MD Work Phone: [facility] 10-04-2024 11:38-0400 Body weight 88.91 kg Piper Julian MD Work Phone: [facility] 10-04-2024 11:38-0400 Diastolic blood pressure 68 mm[Hg] Piper Julian MD Work Phone: [facility] 10-04-2024 11:38-0400 Systolic blood pressure 114 mm[Hg] Piper Julian MD Work Phone: [facility] 09-24-2024 15:07-0400 Body height 157.[address] Jamari Byrne MD Work Phone: [facility] 09-24-2024 15:07-0400 Body mass index (BMI) [Ratio] 35.5 kg/m2 Dr. Jamari Byrne MD Work Phone: [facility] 09-24-2024 15:07-0400 Body weight 88.[address] Jamari Byrne MD Work Phone: [facility] 09-24-2024 14:07-0400 Body temperature 98.1 [degF] Dr. Jamari Byrne MD Work Phone: [facility] 09-24-2024 14:07-0400 Respiratory rate 16 /min Dr. Jamari Byrne MD Work Phone: [facility] 09-24-2024 14:06-0400 Diastolic blood pressure 70 mm[Hg] Dr. Jamari Byrne MD Work Phone: [facility] 09-24-2024 14:06-0400 Heart rate 100 /min Dr. Jamari Byrne MD Work Phone: [facility] 09-24-2024 14:06-0400 Systolic blood pressure 122 mm[Hg] Dr. Jamari Byrne MD Work Phone: [facility] 09-24-2024 08:47-0400 Body mass index (BMI) [Ratio] 34.85 kg/m2 Leonie Waldron APRN.CNM Work Phone: [facility] 09-24-2024 08:47-0400 Body weight 87.54 kg Leonie Waldron PROMOTIONAL MODEL.CNM Work Phone: [facility] 09-24-2024 08:47-0400 Diastolic blood pressure 64 mm[Hg] Leonie Waldron PROMOTIONAL MODEL.CNM Work Phone: [facility] 09-24-2024 08:47-0400 Systolic blood pressure 110 mm[Hg] Leonie Waldron PROMOTIONAL MODEL.CNM Work Phone: [facility] 09-20-2024 13:22-0400 Body mass index (BMI) [Ratio] 34.59 kg/m2 Kelsy Radha DO Work Phone: [facility] 09-20-2024 13:22-0400 Body weight 86.9 kg Kelsy Radha DO Work Phone: [facility] 09-20-2024 13:22-0400 Diastolic blood pressure 71 mm[Hg] Kelsy Radha DO Work Phone: [facility] 09-20-2024 13:22-0400 Heart rate 104 /min Kelsy Radha DO Work Phone: [facility] 09-20-2024 13:22-0400 Systolic blood pressure 116 mm[Hg] Kelsy Radha DO Work Phone: [facility] 09-07-2024 10:42-0400 Body mass index (BMI) [Ratio] 34.31 kg/m2 Ronaldo Rubio MD Work Phone: [facility] 09-07-2024 10:42-0400 Body weight 86.18 kg Ronaldo Rubio MD Work Phone: [facility] 09-07-2024 10:42-0400 Diastolic blood pressure 60 mm[Hg] Ronaldo Rubio MD Work Phone: [facility] 09-07-2024 10:42-0400 Systolic blood pressure 120 mm[Hg] Ronaldo Rubio MD Work Phone: [facility] 09-06-2024 10:02-0400 Body mass index (BMI) [Ratio] 34.61 kg/m2 Jamari Byrne MD Work Phone: [facility] 09-06-2024 10:02-0400 Body weight 85.82 kg Jamari Byrne MD Work Phone: [facility] 09-06-2024 10:02-0400 Diastolic blood pressure 68 mm[Hg] Jamari Byrne MD Work Phone: [facility] 09-06-2024 10:02-0400 Heart rate 98 /min Jamari Byrne MD Work Phone: [facility] 09-06-2024 10:02-0400 SaO2% (BldA) [Mass fraction] 98 % Jamari Byrne MD Work Phone: [facility] 09-06-2024 10:02-0400 Systolic blood pressure 120 mm[Hg] Jamari Byrne MD Work Phone: [facility] 09-02-2024 11:57-0400 Diastolic blood pressure 60 mm[Hg] [facility] 09-02-2024 11:57-0400 Systolic blood pressure 112 mm[Hg] [facility] 08-10-2024 08:05-0500 Body mass index (BMI) [Ratio] 33.26 kg/m2 [facility] 08-10-2024 08:05-0500 Body weight 83.55 kg [facility] 08-10-2024 08:05-0500 Diastolic blood pressure 70 mm[Hg] [facility] 08-10-2024 08:05-0500 Systolic blood pressure 112 mm[Hg] [facility] 07-26-2024 13:40-0500 Body mass index (BMI) [Ratio] 33.22 kg/m2 Kelsy Radha DO Work Phone: [facility] 07-26-2024 13:40-0500 Body weight 83.45 kg Kelsy Radha DO Work Phone: [facility] 07-26-2024 13:40-0500 Diastolic blood pressure 58 mm[Hg] Kelsy Radha DO Work Phone: [facility] 07-26-2024 13:40-0500 Heart rate 94 /min Kelsy Radha DO Work Phone: [facility] 07-26-2024 13:40-0500 Systolic blood pressure 127 mm[Hg] Kelsy Radha DO Work Phone: [facility] 07-23-2024 11:27-0500 Body mass index (BMI) [Ratio] 32.5 kg/m2 William Gramajo MD Work Phone: [facility] 07-23-2024 11:27-0500 Body weight 81.65 kg William Gramajo MD Work Phone: [facility] 07-23-2024 11:27-0500 Diastolic blood pressure 60 mm[Hg] William Gramajo MD Work Phone: [facility] 07-23-2024 11:27-0500 Systolic blood pressure 108 mm[Hg] William Gramajo MD Work Phone: [facility] 07-13-2024 09:51-0500 Body mass index (BMI) [Ratio] 32.21 kg/m2 William Gramajo MD Work Phone: [facility] 07-13-2024 09:51-0500 Body weight 80.92 kg William Gramajo MD Work Phone: [facility] 07-13-2024 09:51-0500 Diastolic blood pressure 60 mm[Hg] William Gramajo MD Work Phone: [facility] 07-13-2024 09:51-0500 Systolic blood pressure 110 mm[Hg] William Gramajo MD Work Phone: [facility] 07-01-2024 21:50-0500 Body temperature 98.71 [degF] Sixto Myers MD Work Phone: [facility] 07-01-2024 21:00-0500 Diastolic blood pressure 81 mm[Hg] Sixto Myers MD Work Phone: [facility] 07-01-2024 21:00-0500 Heart rate 110 /min Sixto Myers MD Work Phone: [facility] 07-01-2024 21:00-0500 Respiratory rate 18 /min Sixto Myers MD Work Phone: [facility] 07-01-2024 21:00-0500 SaO2% (BldA) [Mass fraction] 93 % Sixto Myers MD Work Phone: [facility] 07-01-2024 21:00-0500 Systolic blood pressure 123 mm[Hg] Sixto Myers MD Work Phone: [facility] 07-01-2024 19:43-0500 Body height 157.5 cm Sixto Myers MD Work Phone: [facility] 07-01-2024 19:43-0500 Body mass index (BMI) [Ratio] 32.56 kg/m2 Sixto Myers MD Work Phone: [facility] 07-01-2024 19:43-0500 Body weight 80.74 kg Sixto Myers MD Work Phone: [facility] 06-15-2024 14:25-0500 Body mass index (BMI) [Ratio] 32.17 kg/m2 Pooja Latham MD Work Phone: [facility] 06-15-2024 14:25-0500 Body weight 80.83 kg Pooja Latham MD Work Phone: [facility] 06-15-2024 14:25-0500 Diastolic blood pressure 58 mm[Hg] Pooja Latham MD Work Phone: [facility] 06-15-2024 14:25-0500 Systolic blood pressure 100 mm[Hg] Pooja Latham MD Work Phone: [facility] 06-07-2024 14:07-0500 Body mass index (BMI) [Ratio] 31.68 kg/m2 Kelsy Radha DO Work Phone: [facility] 06-07-2024 14:07-0500 Body weight 79.6 kg Kelsy Radha DO Work Phone: [facility] 06-07-2024 14:07-0500 Diastolic blood pressure 64 mm[Hg] Kelsy Radha DO Work Phone: [facility] 06-07-2024 14:07-0500 Heart rate 85 /min Kelsy Radha DO Work Phone: [facility] 06-07-2024 14:07-0500 Systolic blood pressure 104 mm[Hg] Kelsy Radha DO Work Phone: [facility] 05-26-2024 09:57-0500 Body mass index (BMI) [Ratio] 31.24 kg/m2 Krys Kulkarni MD Work Phone: [facility] 05-26-2024 09:57-0500 Body weight 78.47 kg Krys Kulkarni MD Work Phone: [facility] 05-26-2024 09:57-0500 Diastolic blood pressure 76 mm[Hg] Krys Kulkarni MD Work Phone: [facility] 05-26-2024 09:57-0500 Systolic blood pressure 116 mm[Hg] Krys Kulkarni MD Work Phone: [facility] 05-21-2024 19:12-0500 Body height 157.5 cm Reza Dyer DO Work Phone: [facility] 05-21-2024 19:12-0500 Body mass index (BMI) [Ratio] 31.28 kg/m2 Reza Dyer DO Work Phone: [facility] 05-21-2024 19:12-0500 Body temperature 97.7 [degF] Reza Mark DO Work Phone: [facility] 05-21-2024 19:12-0500 Body weight 77.56 kg Reza Dyer DO Work Phone: [facility] 05-21-2024 19:12-0500 Diastolic blood pressure 68 mm[Hg] Reza Mark DO Work Phone: [facility] 05-21-2024 19:12-0500 Heart rate 91 /min Reza Mark DO Work Phone: [facility] 05-21-2024 19:12-0500 Respiratory rate 18 /min Reza Mark DO Work Phone: [facility] 05-21-2024 19:12-0500 SaO2% (BldA) [Mass fraction] 100 % Reza Lemderrick DO Work Phone: [facility] 05-21-2024 19:12-0500 Systolic blood pressure 115 mm[Hg] Reza Mark DO Work Phone: [facility] 05-07-2024 09:29-0500 Body height 158.5 cm Zayda Parker PROMOTIONAL MODEL.WRAPPER [employer] Work Phone: [facility] 05-07-2024 09:29-0500 Body mass index (BMI) [Ratio] 31.02 kg/m2 Zayda Parker PROMOTIONAL MODEL.WR[employer]PER [employer] Work Phone: [facility] 05-07-2024 09:29-0500 Body weight 77.93 kg Zayda Parker PROMOTIONAL MODEL.WR[employer]PER [employer] Work Phone: [facility] 05-07-2024 09:29-0500 Diastolic blood pressure 60 mm[Hg] Zayda Parker PROMOTIONAL MODEL.WR[employer]PER [employer] Work Phone: [facility] 05-07-2024 09:29-0500 Systolic blood pressure 120 mm[Hg] Zayda Parker PROMOTIONAL MODEL.WR[employer]PER [employer] Work Phone: [facility] 05-04-2024 14:37-0500 Body mass index (BMI) [Ratio] 31.93 kg/m2 Jamari Byrne MD Work Phone: [facility] 05-04-2024 14:37-0500 Body weight 76.66 kg Jamari Byrne MD Work Phone: [facility] 05-04-2024 14:37-0500 Diastolic blood pressure 76 mm[Hg] Jamari Byrne MD Work Phone: [facility] 05-04-2024 14:37-0500 Heart rate 95 /min Jamari Byrne MD Work Phone: [facility] 05-04-2024 14:37-0500 SaO2% (BldA) [Mass fraction] 98 % Jamari Byrne MD Work Phone: [facility] 05-04-2024 14:37-0500 Systolic blood pressure 118 mm[Hg] Jamari Byrne MD Work Phone: [facility] 05-03-2024 14:13-0500 Body mass index (BMI) [Ratio] 30.91 kg/m2 Kelsy Guillermo DO Work Phone: [facility] 05-03-2024 14:13-0500 Body weight 77.9 kg Kelsy Radha DO Work Phone: [facility] 05-03-2024 14:13-0500 Diastolic blood pressure 67 mm[Hg] Kelsy Radha DO Work Phone: [facility] 05-03-2024 14:13-0500 Heart rate 94 /min Kelsy Radha DO Work Phone: [facility] 05-03-2024 14:13-0500 Systolic blood pressure 101 mm[Hg] Kelsy Radha DO Work Phone: [facility] 04-28-2024 08:34-0500 Body height 154.9 cm Joanie Hurtado PROMOTIONAL MODEL-[employer]PER [employer] Work Phone: [facility] 04-28-2024 08:34-0500 Body mass index (BMI) [Ratio] 32.06 kg/m2 Joanie Hurtado PROMOTIONAL MODEL-[employer] Work Phone: [facility] 04-28-2024 08:34-0500 Body weight 76.97 kg Joanie Hurtado PROMOTIONAL MODEL-[employer] Work Phone: [facility] 04-28-2024 08:34-0500 Diastolic blood pressure 82 mm[Hg] Joanie Hurtado PROMOTIONAL MODEL-[employer]PER [employer] Work Phone: [facility] 04-28-2024 08:34-0500 Heart rate 104 /min Joanie Hurtado PROMOTIONAL MODEL-[employer]PER [employer] Work Phone: [facility] 04-28-2024 08:34-0500 SaO2% (BldA) [Mass fraction] 97 % Joanie Hurtado PROMOTIONAL MODEL-[employer] Work Phone: [facility] 04-28-2024 08:34-0500 Systolic blood pressure 140 mm[Hg] Joanie Hurtado [employer]OMOTIONAL MODEL-[employer]PER [employer] Work Phone: [facility] 04-18-2024 21:51-0500 Diastolic blood pressure 93 mm[Hg] Jamari Byrne MD Work Phone: [facility] 04-18-2024 21:51-0500 Heart rate 104 /min Jamari Byrne MD Work Phone: [facility] 04-18-2024 21:51-0500 Respiratory rate 18 /min Jamari Byrne MD Work Phone: [facility] 04-18-2024 21:51-0500 SaO2% (BldA) [Mass fraction] 98 % Jamari Byrne MD Work Phone: [facility] 04-18-2024 21:51-0500 Systolic blood pressure 133 mm[Hg] Jamari Byrne MD Work Phone: [facility] 04-18-2024 18:48-0500 Body height 154.9 cm Jamari Byrne MD Work Phone: [facility] 04-18-2024 18:48-0500 Body mass index (BMI) [Ratio] 32.88 kg/m2 Jamari Byrne MD Work Phone: [facility] 04-18-2024 18:48-0500 Body temperature 98.29 [degF] Jamari Byrne MD Work Phone: [facility] 04-18-2024 18:48-0500 Body weight 78.93 kg Jamari Byrne MD Work Phone: [facility] 01-23-2024 16:00-0400 Body mass index (BMI) [Ratio] 30.45 kg/m2 Jamari Byrne MD Work Phone: [facility] 01-23-2024 16:00-0400 Body weight 75.52 kg Jamari Byrne MD Work Phone: [facility] 01-23-2024 16:00-0400 Diastolic blood pressure 70 mm[Hg] Jamari Byrne MD Work Phone: [facility] 01-23-2024 16:00-0400 Heart rate 98 /min Jamari Byrne MD Work Phone: [facility] 01-23-2024 16:00-0400 SaO2% (BldA) [Mass fraction] 98 % Jamari Byrne MD Work Phone: [facility] 01-23-2024 16:00-0400 Systolic blood pressure 110 mm[Hg] Jamari Byrne MD Work Phone: [facility] 12-25-2023 16:05-0400 Body height 157.5 cm Jamari Byrne MD Work Phone: [facility] 12-25-2023 16:05-0400 Body mass index (BMI) [Ratio] 31.18 kg/m2 Jamari Byrne MD Work Phone: [facility] 12-25-2023 16:05-0400 Body weight 77.34 kg Jamari Byrne MD Work Phone: [facility] 12-25-2023 16:05-0400 Diastolic blood pressure 70 mm[Hg] Jamari Byrne MD Work Phone: [facility] 12-25-2023 16:05-0400 Heart rate 87 /min Jamari Byrne MD Work Phone: [facility] 12-25-2023 16:05-0400 SaO2% (BldA) [Mass fraction] 97 % Jamari Byrne MD Work Phone: [facility] Comment on above: RA 12-25-2023 16:05-0400 Systolic blood pressure 112 mm[Hg] Jamari Byrne MD Work Phone: [facility] 09-15-2023 10:19-0400 Body mass index (BMI) [Ratio] 34.46 kg/m2 Jamari Byrne MD Work Phone: [facility] 09-15-2023 10:19-0400 Body temperature 98.1 [degF] Jamari Byrne MD Work Phone: [facility] 09-15-2023 10:19-0400 Body weight 86.68 kg Jamari Byrne MD Work Phone: [facility] 09-15-2023 10:19-0400 Diastolic blood pressure 80 mm[Hg] Jamari Byrne MD Work Phone: [facility] 09-15-2023 10:19-0400 Heart rate 110 /min Jamari Byrne MD Work Phone: [facility] 09-15-2023 10:19-0400 SaO2% (BldA) [Mass fraction] 100 % Jamari Byrne MD Work Phone: [facility] 09-15-2023 10:19-0400 Systolic blood pressure 124 mm[Hg] Jamari Byrne MD Work Phone: [facility] 08-19-2023 10:08-0400 Body temperature 98.1 [degF] Krislyn Aberegg PA Work Phone: [facility] 08-19-2023 10:08-0400 Body weight 89 kg Krislyn Aberegg PA Work Phone: [facility] 08-19-2023 10:08-0400 Diastolic blood pressure 80 mm[Hg] Krislyn Aberegg PA Work Phone: [facility] 08-19-2023 10:08-0400 Heart rate 100 /min Krislyn Aberegg PA Work Phone: [facility] 08-19-2023 10:08-0400 Respiratory rate 20 /min Krislyn Aberegg PA Work Phone: [facility] 08-19-2023 10:08-0400 SaO2% (BldA) [Mass fraction] 97 % Krislyn Aberegg PA Work Phone: [facility] 08-19-2023 10:08-0400 Systolic blood pressure 110 mm[Hg] Krislyn Aberegg PA Work Phone: [facility] 07-10-2023 10:27-0500 Body mass index (BMI) [Ratio] 34.07 kg/m2 Jamari Byrne MD Work Phone: [facility] 07-10-2023 10:27-0500 Body temperature 97.81 [degF] Jamari Byrne MD Work Phone: [facility] 07-10-2023 10:27-0500 Body weight 85.68 kg Jamari Byrne MD Work Phone: [facility] 07-10-2023 10:27-0500 Diastolic blood pressure 78 mm[Hg] Jamari Byrne MD Work Phone: [facility] 07-10-2023 10:27-0500 Heart rate 95 /min Jamari Byrne MD Work Phone: [facility] 07-10-2023 10:27-0500 SaO2% (BldA) [Mass fraction] 100 % Jamari Byrne MD Work Phone: [facility] 07-10-2023 10:27-0500 Systolic blood pressure 130 mm[Hg] Jamari Byrne MD Work Phone: [facility] 05-09-2023 11:11-0500 Body mass index (BMI) [Ratio] 35.07 kg/m2 Jamari Byrne MD Work Phone: [facility] 05-09-2023 11:11-0500 Body temperature 97.7 [degF] Jamari Byrne MD Work Phone: [facility] 05-09-2023 11:11-0500 Body weight 88.22 kg Jamari Byrne MD Work Phone: [facility] 05-09-2023 11:11-0500 Diastolic blood pressure 82 mm[Hg] Jamari Byrne MD Work Phone: [facility] 05-09-2023 11:11-0500 Heart rate 93 /min Jamari Byrne MD Work Phone: [facility] 05-09-2023 11:11-0500 SaO2% (BldA) [Mass fraction] 98 % Jamari Byrne MD Work Phone: [facility] 05-09-2023 11:11-0500 Systolic blood pressure 118 mm[Hg] Jamari Byrne MD Work Phone: [facility] 03-17-2023 11:08-0400 Body height 158.6 cm Jamari Byrne MD Work Phone: [facility] 03-17-2023 11:08-0400 Body mass index (BMI) [Ratio] 35.85 kg/m2 Jamari Byrne MD Work Phone: [facility] 03-17-2023 11:08-0400 Body weight 90.17 kg Jamari Byrne MD Work Phone: [facility] 03-17-2023 11:08-0400 Diastolic blood pressure 80 mm[Hg] Jamari Byrne MD Work Phone: [facility] 03-17-2023 11:08-0400 Heart rate 111 /min Jamari Byrne MD Work Phone: [facility] 03-17-2023 11:08-0400 Systolic blood pressure 110 mm[Hg] Jamari Byrne MD Work Phone: [facility] 12-13-2022 13:31-0400 Body height 158.6 cm Jamari Byrne MD Work Phone: [facility] 12-13-2022 13:31-0400 Body mass index (BMI) [Ratio] 36.77 kg/m2 Jamari Byrne MD Work Phone: [facility] 12-13-2022 13:31-0400 Body weight 92.49 kg Jamari Byrne MD Work Phone: [facility] 12-13-2022 13:31-0400 Diastolic blood pressure 80 mm[Hg] Jamari Byrne MD Work Phone: [facility] 12-13-2022 13:31-0400 Heart rate 104 /min Jamari Byrne MD Work Phone: [facility] 12-13-2022 13:31-0400 SaO2% (BldA) [Mass fraction] 97 % Jamari Byrne MD Work Phone: [facility] 12-13-2022 13:31-0400 Systolic blood pressure 118 mm[Hg] Jamari Byrne MD Work Phone: [facility] 08-17-2022 18:56-0500 Body height 160 cm Lazara Annmarie DO Work Phone: [facility] 08-17-2022 18:56-0500 Body mass index (BMI) [Ratio] 34.19 kg/m2 Lazara Reederosick DO Work Phone: [facility] 08-17-2022 18:56-0500 Body temperature 97.7 [degF] Lazara Lillitorreyck DO Work Phone: [facility] 08-17-2022 18:56-0500 Body weight 87.54 kg Lazara Deepack DO Work Phone: [facility] 08-17-2022 18:56-0500 Diastolic blood pressure 86 mm[Hg] Lazara Reederosick DO Work Phone: [facility] 08-17-2022 18:56-0500 Heart rate 96 /min Lazara Reederosick DO Work Phone: [facility] 08-17-2022 18:56-0500 Respiratory rate 16 /min Lazara Lillitorreyck DO Work Phone: [facility] 08-17-2022 18:56-0500 SaO2% (BldA) [Mass fraction] 97 % Lazara Lilliosick DO Work Phone: [facility] 08-17-2022 18:56-0500 Systolic blood pressure 126 mm[Hg] Lazara Reederosick DO Work Phone: [facility] 05-24-2022 10:15-0500 Body height 157.48 cm Jamari Byrne Work Phone: [facility] Work Phone: 05-24-2022 10:15-0500 Body mass index (BMI) [Ratio] 32.92 kg/m2 Jamari L Chavez Work Phone: [facility] Work Phone: 05-24-2022 10:15-0500 Body surface area Derived from formula 1.83 m2 Jamari L Chavez Work Phone: [facility] Work Phone: 05-24-2022 10:15-0500 Body weight 81.64 kg Jamari L Chavez Work Phone: [facility] Work Phone: 05-24-2022 10:15-0500 Diastolic blood pressure 82 mm[Hg] Jamari L Chavez Work Phone: [facility] Work Phone: 05-24-2022 10:15-0500 Heart rate 94 /min Jamari L Chavez Work Phone: [facility] Work Phone: 05-24-2022 10:15-0500 Systolic blood pressure 100 mm[Hg] Jamari L Chavez Work Phone: [facility] Work Phone: 01-04-2022 13:47-0400 Body height 157.48 cm Jamari L Chavez Work Phone: [facility] Work Phone: 01-04-2022 13:47-0400 Body mass index (BMI) [Ratio] 30.91 kg/m2 Jamari L Chavez Work Phone: [facility] Work Phone: 01-04-2022 13:47-0400 Body surface area Derived from formula 1.78 m2 Jamari L Chavez Work Phone: [facility] Work Phone: 01-04-2022 13:47-0400 Body weight 76.65 kg Jamari L Chavez Work Phone: [facility] Work Phone: 01-04-2022 13:47-0400 Diastolic blood pressure 78 mm[Hg] Jamari L Chavez Work Phone: [facility] Work Phone: 01-04-2022 13:47-0400 Heart rate 80 /min Jamari L Chavez Work Phone: [facility] Work Phone: 01-04-2022 13:47-0400 Systolic blood pressure 108 mm[Hg] Jamari L Chavez Work Phone: [facility] Work Phone: 12-25-2021 08:36-0400 Body height 157.48 cm Jamari L Chavez Work Phone: [place] [address] [employer] Work Phone: 12-25-2021 08:36-0400 Body mass index (BMI) [Ratio] 30.36 kg/m2 Jamari L Chavez Work Phone: [place] [address] [employer] Work Phone: 12-25-2021 08:36-0400 Body surface area Derived from formula 1.77 m2 Jamari L Chavez Work Phone: [place] [address] [employer] Work Phone: 12-25-2021 08:36-0400 Body weight 75.3 kg Jamari L Chavez Work Phone: [place] [address] [employer] Work Phone: 12-25-2021 08:36-0400 Diastolic blood pressure 76 mm[Hg] Jamari L Chavez Work Phone: [place] [address] [employer] Work Phone: 12-25-2021 08:36-0400 Systolic blood pressure 116 mm[Hg] Jamari L Chavez Work Phone: [place] [address] [employer] Work Phone: 12-17-2021 09:02-0400 Body height 157.48 cm Jamari L Chavez Work Phone: [place] [address] [employer] Work Phone: 12-17-2021 09:02-0400 Body mass index (BMI) [Ratio] 30.44 kg/m2 Jamari L Chavez Work Phone: [place] [address] [employer] Work Phone: 12-17-2021 09:02-0400 Body surface area Derived from formula 1.77 m2 Jamari L Chavez Work Phone: [place] [address] [employer] Work Phone: 12-17-2021 09:02-0400 Body weight 75.5 kg Jamari L Chavez Work Phone: [place] [address] [employer] Work Phone: 12-17-2021 09:02-0400 Diastolic blood pressure 76 mm[Hg] Jamari L Chavez Work Phone: [place] [address] [employer] Work Phone: 12-17-2021 09:02-0400 Systolic blood pressure 112 mm[Hg] Jamari L Chavez Work Phone: [place] [address] [employer] Work Phone: 11-26-2021 09:02-0400 Body height 157.48 cm Jamari L Chavez Work Phone: [place] [address] [address] Work Phone: 11-26-2021 09:02-0400 Body mass index (BMI) [Ratio] 31.09 kg/m2 Jamari L Chavez Work Phone: [place] [address] [address] Work Phone: 11-26-2021 09:02-0400 Body surface area Derived from formula 1.78 m2 Jamari L Chavez Work Phone: [place] [address] [address] Work Phone: 11-26-2021 09:02-0400 Body weight 77.11 kg Jamari L Chavez Work Phone: [address] Work Phone: 11-26-2021 09:02-0400 Diastolic blood pressure 82 mm[Hg] Jamari L Chavez Work Phone: [address] Work Phone: 11-26-2021 09:02-0400 Systolic blood pressure 118 mm[Hg] Jamari L Chavez Work Phone: [address] Work Phone: 11-12-2021 10:17-0400 Body height 159.5 cm Jamari L Chavez Work Phone: [facility] Work Phone: 11-12-2021 10:17-0400 Body mass index (BMI) [Ratio] 30.95 kg/m2 Jamari L Chavez Work Phone: [facility] Work Phone: 11-12-2021 10:17-0400 Body surface area Derived from formula 1.82 m2 Jamari L Chavez Work Phone: [facility] Work Phone: 11-12-2021 10:17-0400 Body weight 78.74 kg Jamari L Chavez Work Phone: [facility] Work Phone: 11-12-2021 10:17-0400 Diastolic blood pressure 70 mm[Hg] Jamari L Chavez Work Phone: [facility] Work Phone: 11-12-2021 10:17-0400 Heart rate 95 /min Jamari Gonzalez Chavez Work Phone: [facility] Work Phone: 11-12-2021 10:17-0400 Systolic blood pressure 104 mm[Hg] Jamari Gonzalez Chavez Work Phone: [facility] Work Phone: 01-04-2021 10:07-0400 Body height 159.99 cm Rich L Oberhauser Work Phone: [facility] Work Phone: 01-04-2021 10:07-0400 Body mass index (BMI) [Ratio] 32.96 kg/m2 Rich L Oberhauser Work Phone: [facility] Work Phone: 01-04-2021 10:07-0400 Body surface area Derived from formula 1.87 m2 Rich L Oberhauser Work Phone: [facility] Work Phone: 01-04-2021 10:07-0400 Body temperature 97.9 [degF] Rich L Oberhauser Work Phone: [facility] Work Phone: 01-04-2021 10:07-0400 Body weight 84.37 kg Rich L Oberhauser Work Phone: [facility] Work Phone: 01-04-2021 10:07-0400 Diastolic blood pressure 79 mm[Hg] Rich L Oberhauser Work Phone: [facility] Work Phone: 01-04-2021 10:07-0400 Heart rate 100 /min Rich L Oberhauser Work Phone: [facility] Work Phone: 01-04-2021 10:07-0400 Systolic blood pressure 125 mm[Hg] Rich L Oberhauser Work Phone: [facility] Work Phone: 11-02-2020 15:58-0400 Body height 159.99 cm Rich L Oberhauser Work Phone: [facility] Work Phone: 11-02-2020 15:58-0400 Body mass index (BMI) [Ratio] 32.96 kg/m2 Rich L Oberhauser Work Phone: [facility] Work Phone: 11-02-2020 15:58-0400 Body surface area Derived from formula 1.87 m2 Rich L Oberhauser Work Phone: [facility] Work Phone: 11-02-2020 15:58-0400 Body temperature 97.8 [degF] Rich L Oberhauser Work Phone: [facility] Work Phone: 11-02-2020 15:58-0400 Body weight 84.37 kg Rich L Oberhauser Work Phone: [facility] Work Phone: 11-02-2020 15:58-0400 Diastolic blood pressure 77 mm[Hg] Rich L Oberhauser Work Phone: [facility] Work Phone: 11-02-2020 15:58-0400 Heart rate 106 /min Rich L Oberhauser Work Phone: [facility] Work Phone: 11-02-2020 15:58-0400 Systolic blood pressure 120 mm[Hg] Rich L Oberhauser Work Phone: [facility] Work Phone: 10-24-2020 04:00-0400 Diastolic blood pressure 76 mm[Hg] Rich Ng Other Phone: [facility] 10-24-2020 04:00-0400 Heart rate 96 /min Rich Ng Other Phone: [facility] 10-24-2020 04:00-0400 Respiratory rate 18 /min Rich Ng Other Phone: [facility] 10-24-2020 04:00-0400 SaO2% (BldA) [Mass fraction] 95 % Rich Ng Other Phone: [facility] 10-24-2020 04:00-0400 Systolic blood pressure 115 mm[Hg] Rich Ng Other Phone: [facility] 12-08-2019 08:09-0400 BMI (Body Mass Index) 29.23 kg/m2 [facility] 12-08-2019 08:09-0400 Body weight 74.84 kg [facility] 12-08-2019 08:09-0400 BP Diastolic 82 mm[Hg] [facility] 12-08-2019 08:09-0400 BP Systolic 128 mm[Hg] [facility] 12-08-2019 08:09-0400 Height 160 cm [facility] 12-08-2019 08:09-0400 Pulse (Heart Rate) 103 /min [facility] 12-08-2019 08:09-0400 Pulse Oximetry 97 % [facility] 12-08-2019 08:09-0400 Respiratory Rate 16 /min [facility] 09-29-2019 17:47-0400 BMI (Body Mass Index) 28.18 kg/m2 Rich Ng [facility] Work Phone: 09-29-2019 17:47-0400 Body Temperature 98.5 [degF] Rich Ng [facility] Work Phone: 09-29-2019 17:47-0400 Body weight 72.12 kg Rich Ng [facility] Work Phone: 09-29-2019 17:47-0400 BP Diastolic 93 mm[Hg] Rich Obdavid [facility] Work Phone: 09-29-2019 17:47-0400 BP Systolic 136 mm[Hg] Rich Obdavid [facility] Work Phone: 09-29-2019 17:47-0400 BSA (Body Surface Area) 1.75 m2 Rich Ng [facility] Work Phone: 09-29-2019 17:47-0400 Height 159.99 cm Rich Ng [facility] Work Phone: 09-29-2019 17:47-0400 Pulse (Heart Rate) 101 /min Rich Ng [facility] Work Phone: 09-27-2019 16:07-0400 BMI (Body Mass Index) 28.17 kg/m2 Rich Ng [facility] Work Phone: 09-27-2019 16:07-0400 Body weight 72.12 kg Rich Ng [facility] Work Phone: 09-27-2019 16:07-0400 BP Diastolic 78 mm[Hg] Rich Oberbilly [facility] Work Phone: 09-27-2019 16:07-0400 BP Systolic 128 mm[Hg] Rich Oberbilly [facility] Work Phone: 09-27-2019 16:07-0400 BSA (Body Surface Area) 1.75 m2 [facility] Work Phone: 09-27-2019 16:07-0400 Height 160 cm Rich Ng [facility] Work Phone: 05-19-2019 11:48-0500 BMI (Body Mass Index) 29.8 kg/m2 Juno Blackburn [facility] [address] Work Phone: 05-19-2019 11:48-0500 Body weight 76.3 kg Juno Blackburn [facility] [address] Work Phone: 05-19-2019 11:48-0500 BP Diastolic 70 mm[Hg] Jnuo Blackburn [facility] [address] Work Phone: 05-19-2019 11:48-0500 BP Systolic 110 mm[Hg] Juno Blackburn [facility] [address] Work Phone: 05-19-2019 11:48-0500 BSA (Body Surface Area) 1.8 m2 Juno Blackburn [facility] [address] Work Phone: 05-19-2019 11:48-0500 Height 160.02 cm Juno Blackburn [facility] [address] Work Phone: 05-13-2019 16:36-0500 BMI (Body Mass Index) 24.88 kg/m2 Juno Blackburn [facility] [address] Work Phone: 05-13-2019 16:36-0500 Body weight 63.7 kg Juno Blackburn [facility] [address] Work Phone: 05-13-2019 16:36-0500 BP Diastolic 68 mm[Hg] Juno Blackburn [facility] [address] Work Phone: 05-13-2019 16:36-0500 BP Systolic 100 mm[Hg] Juno Blackburn [facility] [address] Work Phone: 05-13-2019 16:36-0500 BSA (Body Surface Area) 1.66 m2 Juno Blackburn [facility] [address] Work Phone: 05-13-2019 16:36-0500 Height 160.02 cm Juno [facility] [employer] Work Phone: 03-21-2019 22:15-0400 BMI (Body Mass Index) 27.63 kg/m2 [facility] 03-21-2019 22:15-0400 Body weight 70.76 kg [facility] 03-21-2019 22:15-0400 Height 160 cm [facility] 03-21-2019 22:13-0400 Body Temperature 98.91 [degF] [facility] 03-21-2019 22:13-0400 BP Diastolic 77 mm[Hg] [facility] 03-21-2019 22:13-0400 BP Systolic 114 mm[Hg] [facility] 03-21-2019 22:13-0400 Pulse (Heart Rate) 84 /min [facility] 03-21-2019 22:13-0400 Pulse Oximetry 98 % [facility] 03-21-2019 22:13-0400 Respiratory Rate 18 /min [facility] 03-11-2019 10:55-0400 Body Temperature 98.49 [degF] [facility] 03-11-2019 10:55-0400 BP Diastolic 65 mm[Hg] [facility] 03-11-2019 10:55-0400 BP Systolic 119 mm[Hg] [facility] 03-11-2019 10:55-0400 Pulse (Heart Rate) 78 /min [facility] 03-11-2019 10:55-0400 Pulse Oximetry 97 % [facility] 03-11-2019 10:55-0400 Respiratory Rate 16 /min [facility] 03-11-2019 10:53-0400 BMI (Body Mass Index) 27.63 kg/m2 [facility] 03-11-2019 10:53-0400 Body weight 70.76 kg [facility] 03-11-2019 10:53-0400 Height 160 cm [facility] 02-10-2019 19:22-0400 BP Diastolic 86 mm[Hg] [facility] 02-10-2019 19:22-0400 BP Systolic 123 mm[Hg] [facility] 02-10-2019 19:22-0400 Pulse (Heart Rate) 86 /min [facility] 02-10-2019 19:22-0400 Pulse Oximetry 97 % [facility] 02-10-2019 19:22-0400 Respiratory Rate 16 /min [facility] 02-10-2019 17:11-0400 Body Temperature 97.3 [degF] [facility] 10-07-2018 01:36-0400 Body Temperature 98.01 [degF] [facility] 10-07-2018 01:36-0400 BP Diastolic 73 mm[Hg] [facility] 10-07-2018 01:36-0400 BP Systolic 113 mm[Hg] [facility] 10-07-2018 01:36-0400 Pulse (Heart Rate) 85 /min [facility] 10-07-2018 01:36-0400 Pulse Oximetry 97 % [facility] 10-07-2018 01:36-0400 Respiratory Rate 18 /min [facility] 10-06-2018 23:01-0400 BMI (Body Mass Index) 31.53 kg/m2 [facility] 10-06-2018 23:01-0400 Body weight 80.74 kg [facility] 10-06-2018 23:01-0400 Height 160 cm [facility] 10-05-2018 00:24-0400 Body Temperature 98.29 [degF] [facility] 10-05-2018 00:24-0400 BP Diastolic 90 mm[Hg] [facility] 10-05-2018 00:24-0400 BP Systolic 141 mm[Hg] [facility] 10-05-2018 00:24-0400 Pulse (Heart Rate) 82 /min [facility] 10-05-2018 00:24-0400 Pulse Oximetry 97 % [facility] 10-05-2018 00:24-0400 Respiratory Rate 20 /min [facility] 10-04-2018 21:38-0400 Respiratory rate 16 /min [facility] 10-04-2018 19:31-0400 BMI (Body Mass Index) 31.53 kg[facility]m2 [facility] 10-04-2018 19:31-0400 Body [facility] 80.74 [facility] 10-04-2018 19:31-0400 Height 160 cm [facility] 09-12-2018 23:29-0400 Pulse (Heart Rate) 113 /min [facility] [employer] 09-12-2018 23:29-0400 Pulse Oximetry 97 % [facility] [employer] 09-12-2018 23:16-0400 Body Temperature 98.49 [degF] [facility] 09-12-2018 22:34-0400 BP Diastolic 66 mm[Hg] [facility] 09-12-2018 22:34-0400 BP Systolic 117 mm[Hg] [facility] 09-12-2018 22:34-0400 Respiratory Rate 16 /min [facility] [employer] 09-12-2018 21:16-0400 BMI (Body Mass Index) 31 kg/m2 [facility] 09-12-2018 21:16-0400 Height 160 cm [facility] 09-12-2018 21:16-0400 Weight 79.38 kg [facility] Comment on above: [facility] 02-01-2018 21:30-0400 Body temperature 37.0 Celsius [facility] Comment on above: Performed By: #### VBG #### Unless otherwise noted, all testing performed by [facility] [employer] [place] [address] [place], [place] [address] CLIA: [id number] Swimming Pool Installer: Cristofer Perry M.D. Encounters Encounter Date Encounter Type Care Provider Facility Start: 03-09-2025 End: 03-09-2025 [facility] Start: 03-09-2025 End: 03-09-2025 Office outpatient visit 25 minutes Jamari Byrne MD Work Phone: [facility] Comment on above: Diabetic gastropares is associated with type 2 diabetes mellitus (Multi) (Primary Dx); Anxiety and depression; Gastroesophageal reflux disease, 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 esophagitis present Start: 02-22-2025 End: 02-22-2025 ambulatory Kelsy Guillermo DO Work Phone: Endocrinology Comment on above: Diabetic Start: 02-21-2025 End: 02-21-2025 Office outpatient visit 15 minutes Leonie Galarza PROMOTIONAL MODEL[employer]WRAPPER [employer] Work Phone: [facility] Comment on above: Cough, unspecified t ype (Primary Dx); Acute upper respiratory infection Start: 02-21-2025 ambulatory [facility] Start: 02-19-2025 End: 02-19-2025 Patient encounter procedure Ángela Norris PROMOTIONAL MODEL.WRAPPER HAND Work Phone: [facility] Comment on above: Bacterial sinusitis (Primary Dx); Nausea; Postnasal drip Start: 02-19-2025 End: 02-20-2025 ambulatory JAMARI CHAVEZ Facility:[facility] Start: 02-01-2025 End: 02-01-2025 Telephone encounter Kelsy Guillermo DO Work Phone: Endocrinology Comment on above: insulin concern Start: 01-31-2025 End: 01-31-2025 Office outpatient visit 25 minutes Jamari Byrne MD Work Phone: [facility] Comment on above: Exercise-induced ast hma (Primary Dx); Hyperglycemia due to diabetes mellitus (Multi); Anxiety and depression Start: 01-31-2025 End: 01-31-2025 ambulatory [facility] Start: 01-29-2025 End: 01-29-2025 Emergency department patient visit [facility] Start: 01-28-2025 End: 01-28-2025 Patient encounter procedure Issac Romero PROMOTIONAL MODEL.WRAPPER HAND Work Phone: [facility] Comment on above: Gastritis with hemor rhage, unspecified chronicity, unspecified gastritis type (Primary Dx); Nausea and vomiting, unspecified vomiting type; Gastro-esophageal reflux disease without esophagitis; SHIRA (generalized anxiety disorder) Start: 01-28-2025 End: 01-28-2025 ambulatory JAMARI BYRNE Facility:[facility] Start: 01-28-2025 Encounter for other preprocedural examination Whit Patel [facility] Start: 2025 End: 01-28-2025 Telephone encounter Whit Schulte MD Work Phone: OB/Gynecology Comment on above: [employer] Start: 01-26-2025 End: 01-26-2025 Emergency department patient visit Dr. Jamari Byrne MD Work Phone: -Emergency Department Work Phone: Start: 01-24-2025 End: 01-24-2025 Emergency department patient visit Ty Shannon DO Work Phone: [facility] Emergency Medicine Comment on above: Acute chest pain (Pr imary Dx) Start: 01-23-2025 End: 01-23-2025 Emergency department patient visit Dr. Jamari Byrne MD Work Phone: -Emergency Department Work Phone: Start: 01-21-2025 ambulatory Whit Patel Facility:[facility] Start: 01-20-2025 End: 01-21-2025 Emergency department patient visit Dr. 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, 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, 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 residential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 (HCC) (Primary Dx) Start: 01-20-2025 End: 01-20-2025 ambulatory JAMARI BYRNE Facility:[facility] Start: 01-19-2025 End: 01-19-2025 Patient encounter procedure Whit Schulte MD Work Phone: OB/Gynecology Comment on above: care and examination (HCC) (Primary Dx); Request for sterilization; Pre-op exam Start: 01-19-2025 End: 01-19-2025 Preprocedural examination done Whit Schulte MD Work Phone: [facility] Start: 01-19-2025 End: 01-19-2025 ambulatory WHIT SCHULTE Facility:[facility] Start: 01-19-2025 Encounter for other preprocedural examination WHIT SCHULTE [facility] Start: 12-31-2024 End: 12-31-2024 ambulatory Chava [facility]v [facility] Work Phone: [facility] Comment on above: [employer] Start: 12-31-2024 End: 12-31-2024 E-mail encounter from caregiver Chava F[facility] Work Phone: [facility] L[facility] Start: 12-21-2024 End: 12-21-2024 Patient encounter procedure William Gramajo MD Work Phone: OB/Gynecology Comment on above: care and examination immediately after delivery (HCC) (Primary Dx) Start: 12-21-2024 End: 12-21-2024 ambulatory WILLIAM GRAMAJO Facility:[facility] Start: 12-16-2024 End: 12-16-[address] Jamari [...] of inpatient Dr. William Gramajo [facility] Work Phone: Start: 12-06-2024 End: 02-05-2025 Follow-up encounter Lucy Mariscal APRN.CNP Work Phone: OB/Gynecology Start: 12-06-2024 End: 12-06-2024 Telephone encounter Kelsy Guillermo DO Work Phone: Endocrinology Comment on above: Blood Sugar Reading Start: 12-06-2024 End: 12-06-2024 Patient encounter procedure Whi Tech 1 Final [employer] [facility] Comment on above: Pre-existing type 2 diabetes mellitus in in first trimester (HCC) (Primary Dx); 38 weeks gestation of (HCC) Pre-existing type 2 diabetes mellitus in in third trimester (HCC) (Primary Dx); Supervision of high risk in third trimester (HCC); History of pre-eclampsia; H/O macrosomia in infant in prior , currently (HCC); 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HCC); 38 weeks gestation of (HCC) Start: 12-06-2024 End: 12-06-2024 ambulatory PIPER JULIAN Facility:[facility] Start: 12-06-2024 ambulatory Jamari Byrne Facility: [facility] Start: 12-02-2024 End: 12-02-2024 E-mail encounter [...] 11-30-2024 Patient encounter procedure Whi Tech 1 Final Inspector And Tester [facility] Comment on above: Pre-existing type 2 diabetes mellitus in in third trimester (HCC) (Primary Dx); Pre-existing type 2 diabetes mellitus in in first trimester (HCC) Start: 11-30-2024 End: 11-30-2024 ambulatory Pixelated CHAVEZ Facility:[facility] Start: 11-25-2024 End: 11-25-2024 Telephone encounter Kelsy [...] of (HCC) Start: 11-25-2024 End: 11-25-2024 ambulatory JAMARI [facility] Facility:[facility] Start: 11-22-2024 End: 01-22-2025 Follow-up encounter Lucy Mariscal APRN.CNP Work Phone: OB/Gynecology Start: 11-22-2024 End: 11-22-2024 Patient encounter procedure [place] OTRi Tech 1 Final Inspector And Tester [facility] Comment on above: Obesity affecting pr egnancy in first trimester, unspecified obesity type (HCC) (Primary Dx); Pre-existing type 2 diabetes mellitus in in first trimester (HCC) Start: 11-22-2024 End: 11-22-2024 ambulatory [facility] Facility:[facility] Start: 11-18-2024 End: 11-18-2024 Patient encounter procedure Keshav Loving MD Work Phone: OB/Gynecology Comment on above: Pre-existing type 2 diabetes mellitus in in third trimester (HCC) (Primary Dx); 35 weeks gestation of (HCC); Vaginal itching Start: 11-18-2024 End: 11-18-2024 ambulatory JAMARI BYRNE Facility:[facility] Start: 11-16-2024 End: 11-16-2024 Telephone encounter Kelsy Guillermo DO Work Phone: Endocrinology Comment on above: Blood Sugar Reading Start: 11-15-2024 End: 11-15-[address] Jamari Byrne MD Work Phone: [facility] Work Phone: Start: 11-15-2024 End: 11-15-[address] Whit Patel MD [facility] Work Phone: Start: 11-15-2024 End: 11-15-2024 Patient encounter procedure Keshav Loving MD Work Phone: OB/Gynecology Comment on above: Pre-existing type 2 diabetes mellitus in in third trimester (HCC) (Primary Dx); 35 weeks gestation of (HCC); Supervision of high risk in third trimester (HCC) Pre-existing type 2 diabetes mellitus in in first trimester (HCC) (Primary Dx); 35 weeks gestation of ([facility]) Start: 11-15-2024 End: 11-15-2024 ambulatory JAMARI BYRNE Facility:[facility] Start: 11-11-2024 End: 11-11-2024 Office outpatient visit 15 minutes Krys Kulkarni MD Work Phone: OB/Gynecology Comment on above: Pre-existing type 2 diabetes mellitus in in third trimester (HCC) (Primary Dx); pruritus, third trimester ([facility]); History of pre-eclampsia; H/O macrosomia in infant in prior , currently ([facility]); 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[facility]); complication before ([facility]); 34 weeks gestation of ([facility]) Start: 11-11-2024 End: 11-11-2024 ambulatory [facility] Facility:[facility] Start: 11-08-2024 End: 01-08-2025 Follow-up encounter Krys Kulkarni MD Work Phone: OB/Gynecology Start: 11-08-2024 End: 11-08-2024 Patient encounter procedure Whi Tech 1 Final Inspector And Tester [employer] [facility] Comment on above: Pre-existing type 2 diabetes mellitus in in first trimester (HCC) (Primary Dx); 34 weeks gestation of ([facility]) Start: 11-08-2024 End: 11-08-2024 [facility] Facility:[facility] Start: 11-05-2024 End: 11-05-2024 [facility] Facility:[facility] Start: 11-05-2024 End: 11-05-2024 Initial preventive medicine new pt age 12-17 yr Krys Kulkarni MD Work Phone: OB/Gynecology Comment on above: 33 weeks gestation o f (HCC) (Primary Dx); complication before ([facility]); Pre-existing type 2 diabetes mellitus in in third trimester ([facility]); Supervision of high risk in third trimester ([facility]); pruritus, third trimester ([facility]) Start: 11-05-2024 End: 11-05-2024 ambulatory [facility] Facility:[facility] Start: 11-04-2024 End: 11-04-2024 Subsequent hospital visit by physician Chava Mcdonald Ob L&D Work Phone: OB/Gynecology Comment on above: complicati on before ([facility]) [O99.891] Start: 11-04-2024 End: 11-04-2024 Nutrition therapy [...] 11-02-2024 Patient encounter procedure Whi Tech 1 Final Inspector And Tester [facility] Comment on above: Pre-existing type 2 diabetes mellitus in in first trimester (HCC) (Primary Dx); Obesity affecting in first trimester, unspecified obesity type ([facility]); 33 weeks gestation of ([facility]) Pre-existing type 2 diabetes mellitus in in third trimester ([facility]) (Primary Dx); History of pre-eclampsia; H/O macrosomia in infant in prior , currently ([facility]); 33 weeks gestation of ([facility]); Request for sterilization; Herpes simplex type 2 (HSV-2) infection affecting , antepartum, unspecified trimester ([facility]) Start: 11-02-2024 End: 11-02-2024 ambulatory JAMARI BYRNE Facility:[facility] Start: 10-29-2024 End: 11-22-2024 Follow-up encounter Piper Julian MD Work Phone: OB/Gynecology Start: 10-29-2024 End: 11-03-2024 Telephone encounter Piper Julian MD Work Phone: OB/Gynecology Comment on above: Breast Pump Start: 10-28-2024 End: 10-28-2024 ambulatory PIPER JULIAN Facility:[facility] Start: 10-25-2024 End: 10-25-2024 ambulatory PIPER JULIAN Facility:[facility] Start: 10-25-2024 End: 10-25-2024 Patient encounter procedure Piper Julian MD Work Phone: OB/Gynecology Comment on above: Supervision of high risk in third trimester (HCC) (Primary Dx); Pre-existing type 2 diabetes mellitus in in third trimester (HCC); Exposure to parvovirus; History of pre-eclampsia Start: 10-25-2024 End: 10-25-2024 ambulatory JAMARI BYRNE Facility:[facility] Start: 10-20-2024 End: 10-20-2024 ambulatory Piper Julian MD Work Phone: OB/Gynecology Comment on above: results Start: 10-20-2024 End: 10-20-2024 E-mail encounter from caregiver Piper Julian MD Work Phone: OB/Gynecology Start: 10-19-2024 End: 10-19-2024 Telephone encounter Kelsy Guillermo DO Work Phone: Endocrinology Comment on above: Blood Sugar Reading Start: 10-18-2024 End: 10-18-2024 E-mail encounter from caregiver [facility] Ob L&D Work Phone: 10sec-Labor & Delivery Start: 10-18-2024 End: 10-18-2024 Patient [...] History of pre-eclampsia; 31 weeks gestation of ([facility]) Start: 10-18-2024 End: 10-18-2024 ambulatory [facility] Work Phone: 10sec-Labor & Delivery Comment on above: M-Power Time to Jose A shoemaker Start: 10-16-2024 End: 10-16-[address] Jamari Byrne MD Work Phone: [facility] Work Phone: Start: 10-16-2024 End: 10-16-2024 [...] 10-04-2024 End: 10-04-2024 Patient encounter procedure Piper uJlian MD Work Phone: OB/Gynecology Comment on above: Supervision of high risk in third trimester (HCC) (Primary Dx); History of pre-eclampsia; 29 weeks gestation of (HCC); Pre-existing type 2 diabetes mellitus in in third trimester (HCC); 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[facility]); Pre-existing type 2 diabetes mellitus in in first trimester ([facility]); Tobacco smoking complicating in first trimester (HCC); History of recurrent UTI (urinary tract infection); 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, 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, 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 residential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 (HCC); Herpes simplex type 2 (HSV-2) infection affecting , antepartum, unspecified trimester (HCC) Start: 10-04-2024 End: 10-04-2024 ambulatory JAMARI BYRNE Facility:[facility] Start: 09-29-2024 End: 11-29-2024 Follow-up encounter Leonie [...] ambulatory Dr. Jamari Byrne MD Work Phone: [facility] Work Phone: Start: 09-24-2024 End: 09-24-2024 Patient encounter procedure Leoniealli Waldron CNM [facility] Work Phone: Start: 09-24-2024 End: 09-24-2024 Patient encounter procedure Mary GOODWIN Work Phone: [facility] Comment on above: Procedure not gisselle d out (Primary Dx) Start: 09-24-2024 End: 09-24-2024 ambulatory JAMARI BYRNE Facility:[facility] Start: 09-23-2024 End: 09-24-2024 Refill Kelsy Guillermo DO Work Phone: Endocrinology Comment on above: Refill Request Start: 09-20-2024 End: 11-20-2024 Follow-up encounter Kelsy Guillermo DO Work Phone: Endocrinology Start: 09-20-2024 End: 09-20-2024 ambulatory JAMARI BYRNE Facility:[facility] Start: 09-20-2024 End: 09-20-2024 Patient encounter procedure Kelsy Guillermo DO Work Phone: Endocrinology Comment on above: Type 2 diabetes lazaro itus during , antepartum, third trimester (HCC) (Primary Dx); Insulin controlled gestational diabetes mellitus (GDM) in first trimester (HCC); High-risk , third trimester (HCC) Start: 09-14-2024 End: 09-14-2024 E-mail encounter from caregiver Chava Mcdonald Ob L&D Work Phone: [facility] 3 L&D Start: 09-14-2024 End: 09-14-2024 Patient encounter procedure Chava Mcdonald Ob L&D Work Phone: [facility] 3 L&D Comment on above: M-Power Referral Start: 09-13-2024 End: 09-13-2024 Orders Only Tiana Hutchinson RN OB/Gynecology Comment on above: complicati on before (HCC) (Primary Dx) Start: 09-11-2024 End: 09-11-2024 Telephone encounter Kelsy Guillermo DO Work Phone: Endocrinology Comment on above: Blood Sugar Reading Start: 09-09-2024 End: 11-09-2024 Follow-up encounter Piper Julian MD Work Phone: OB/Gynecology Start: 09-08-2024 End: 09-08-2024 ambulatory JAMARI BYRNE Facility:[facility] Start: 09-07-2024 End: 10-20-2024 Telephone encounter Kelsy Guillermo DO Work Phone: Endocrinology Comment on above: Blood Sugar Reading Patient Question Start: 09-07-2024 End: 09-07-2024 ambulatory JAMARI BYRNE Facility:[facility] Start: 09-07-2024 End: 09-07-2024 Patient encounter procedure [...] 15 minutes Jamari Byrne MD Work Phone: [facility] Comment on above: Exercise-induced ast hma (HHS-HCC); Bipolar depression (Multi) Start: 09-06-2024 End: 09-06-2024 ambulatory [facility] Start: 09-04-2024 End: 09-06-2024 Refill William Gramajo MD Work Phone: OB/Gynecology Comment on above: Med Change Request Start: 09-03-2024 End: 11-03-2024 Follow-up encounter William Gramajo MD Work Phone: OB/Gynecology Start: 09-02-2024 End: 09-02-2024 ambulatory [facility] Facility:[facility] Start: 09-02-2024 End: 09-02-2024 Patient encounter procedure Whi Tech 1 Final Inspector And Tester [employer] [facility] Comment on [...] your call Start: 08-10-2024 End: 08-10-2024 ambulatory [facility] Facility:[facility] Start: 08-10-2024 End: 08-10-2024 Patient encounter procedure Whi Tech 1 Final Inspector And Tester [facility] [facility] Comment on above: Encounter for anatomic survey (Primary Dx); 21 weeks gestation of ; Pre-existing type 2 diabetes mellitus in in first trimester Pre-existing type 2 diabetes mellitus in in first trimester (Primary Dx); Obesity affecting in first trimester, unspecified obesity type; History of pre-eclampsia; H/O macrosomia in infant [...] Reading Start: 07-26-2024 End: 07-26-2024 ambulatory JAMARI BYRNE Facility:[facility] Start: 07-26-2024 End: 07-26-2024 Patient encounter procedure Kelsy Guillermo DO Work Phone: Endocrinology Comment on above: Type 2 diabetes lazaro itus complicating , antepartum, second trimester (Primary Dx); Insulin controlled gestational diabetes mellitus (GDM) in first trimester; High-risk , second trimester Start: 07-23-2024 End: 07-23-2024 ambulatory [facility] Facility:[facility] Start: 07-23-2024 End: 07-23-2024 Patient encounter procedure [...] Sugar Reading Start: 07-13-2024 End: 07-13-2024 ambulatory [facility] Facility:[facility] Start: 07-13-2024 End: 07-13-2024 Patient encounter procedure Whi Tech 1 Final Inspector And Tester [employer] [facility] Comment on [...] patient visit Sixto Myers MD Work Phone: [facility] Comment on above: Influenza [...] Start: 06-15-2024 End: 06-15-2024 ambulatory JAMARI BYRNE Facility:[facility] Start: 06-15-2024 End: 06-15-2024 Patient encounter procedure Whi Tech 1 Final Inspector And Tester [facility] Comment on above: Encounter for antena boone screening for malformation using ultrasound (Primary Dx); 13 weeks gestation of H/O macrosomia in in [place] in prior , currently ; Pre-existing type 2 diabetes mellitus in in first trimester; History of pre-eclampsia Start: 06-15-2024 End: 06-15-2024 ambulatory JAMARI L CHAVEZ Facility:[facility] Start: 06-12-2024 End: 06-14-2024 ambulatory Kelsy Guillermo DO Work Phone: Endocrinology Comment on above: Glucose monitor Start: 06-11-2024 End: 06-11-2024 Telephone encounter Kelsy Guillermo DO Work Phone: Endocrinology Comment on above: Blood Sugar Reading Start: 06-07-2024 End: 06-07-2024 ambulatory [facility] Facility:[facility] Start: 06-07-2024 End: 06-07-2024 Patient encounter procedure [...] Blood Sugar Reading Start: 05-26-2024 End: 05-26-2024 [facility] Facility:[facility] Start: 05-26-2024 End: 05-26-2024 Office outpatient visit [...] patient visit Reza Dyer DO Work Phone: [facility] Emergency Medicine Comment on above: Abdominal pain durin g in first trimester ([facility]) (Primary Dx) Start: 05-20-2024 End: 05-25-2024 [...] 05-10-2024 End: 05-10-2024 Telephone encounter Zayda Parker APRN.WRAPPER HAND Work Phone: OB/Gynecology Comment on above: Results Start: 05-09-2024 End: 05-09-2024 Telephone encounter Kelsy Guillermo DO Work Phone: Endocrinology Comment on above: Blood Sugar Reading Start: 05-07-2024 End: 05-07-2024 ambulatory [facility] Facility:[facility] Start: 05-07-2024 End: 05-07-2024 Patient encounter procedure Zayda Parker APRN.WRAPPER HAND Work Phone: OB/Gynecology Comment on above: Encounter [...] cervical cancer Start: 05-04-2024 End: 05-04-2024 ambulatory [facility] Start: 05-04-2024 End: 05-04-2024 Office outpatient visit 15 minutes Jamari Byrne MD Work Phone: [facility] Comment on above: Bipolar depression ( Multi) (Primary Dx); Hyperglycemia due to diabetes mellitus (Multi); Cigarette nicotine dependence with other nicotine-induced disorder Start: 05-03-2024 End: 05-03-2024 ambulatory JAMARI BYRNE Facility:[facility] Start: 05-03-2024 End: 05-03-2024 Patient encounter [...] End: 04-30-2024 ambulatory Tee Li RN NURSE [employer] HELPER Comment on above: Blood Sugar Elevatio n (/) Start: 04-28-2024 End: 04-28-2024 Office outpatient visit 25 minutes Joanie Hurtado APRN-WRAPPER HAND Work Phone: [facility] Comment on above: Bacterial vaginosis (Primary Dx); Less than 8 weeks gestation of ([facility]) Start: 04-28-2024 End: 04-28-2024 ambulatory JOANIE HURTADO [facility] Ambulatory Start: 04-23-2024 End: 04-23-2024 Telephone encounter Kelsy Guillermo DO Work Phone: Endocrinology Start: 04-19-2024 End: 04-19-2024 Telephone encounter Zayda Parker APRN.WRAPPER HAND Work Phone: OB/Gynecology Comment on above: Patient Update (ER v isit) Start: 04-18-2024 End: 04-18-2024 Emergency department patient visit JAMARI BYRNE [facility] Emergency Medicine Comment on above: Urinary tract infect ion in mother during first trimester of ([facility]) (Primary Dx); Herpes simplex vulvovaginitis Start: 04-17-2024 End: 04-17-2024 ambulatory [place] Start: 04-14-2024 End: 04-15-2024 [facility] Start: 04-14-2024 End: 04-15-2024 Telephone encounter Nurse Final Inspector And Tester soco Dundee Work Phone: Obstetrics/Gynecology Comment on above: Care Coordination Start: 01-23-2024 End: 01-23-2024 Office outpatient visit 15 minutes Jamari Byrne MD Work Phone: [facility] Comment on above: Exercise-induced ast hma ([facility]-HCC) (Primary Dx); Hyperglycemia due to diabetes mellitus (Multi); Bipolar depression (Multi); Necrobiosis lipoidica Start: 12-25-2023 End: 12-25-2023 Office outpatient visit 15 minutes Jamari Byrne MD Work Phone: [facility] Comment on above: Necrobiosis lipoidic a (Primary Dx); Hyperglycemia due to diabetes mellitus (Multi) Start: 12-16-2023 End: 12-16-2023 ambulatory [facility] Start: 09-15-2023 End: 09-15-2023 ambulatory [facility] Start: 09-15-2023 End: 09-15-2023 Office outpatient visit 25 minutes Jamari Byrne MD Work Phone: [facility] Comment on above: Sebaceous cyst (Prim stephen Dx); Hyperglycemia due to diabetes mellitus (CMS/HCC); Exercise-induced asthma Start: 08-19-2023 End: 08-19-2023 Patient encounter procedure Mary GOODWIN Work Phone: [facility] Comment on above: Pain, dental (Primar y Dx) Start: 07-10-2023 End: 07-10-2023 Office outpatient visit 15 minutes Jamari Byrne MD Work Phone: [facility] Comment on above: Necrobiosis lipoidic a (Primary Dx); Hyperglycemia due to diabetes mellitus ([facility]) Start: 05-09-2023 End: 05-09-2023 Office outpatient visit 15 minutes Jamari Byrne MD Work Phone: [facility] Comment on above: Hyperglycemia due to diabetes mellitus ([facility]) Start: 03-17-2023 End: 03-17-2023 Office outpatient visit 15 minutes Jamari Byrne MD Work Phone: [facility] Comment on above: Exercise-induced ast hma (Primary Dx); Hyperglycemia due to diabetes mellitus ([facility]) Start: 12-13-2022 End: 12-13-2022 Office outpatient visit 25 minutes Jamari Byrne MD Work Phone: [facility] Comment on above: Hyperglycemia due to diabetes mellitus ([facility]) Start: 08-17-2022 End: 08-17-2022 ambulatory [facility] Start: 08-17-2022 End: 08-17-2022 Office outpatient visit 25 minutes Lazara Jon DO Work Phone: [facility] Comment on above: Yeast vaginitis (Verito tee Dx); Late menses; Vaginal discharge Start: 05-24-2022 Office outpatient vi sit 15 minutes Jamari Byrne Work Phone: [facility] Work Phone: Start: 01-04-2022 Office outpatient vi sit 10 minutes Jamari Byrne Work Phone: [facility] Work Phone: Start: 12-25-2021 Office outpatient vi sit 15 minutes Jamari Byrne Work Phone: [facility] [employer] Work Phone: Start: 12-17-2021 Office outpatient vi sit 15 minutes Jamari Byrne Work Phone: [facility] [employer] Work Phone: Start: 12-10-2021 Chart Update Jamari L Robbie r Work Phone: [address] Work Phone: Start: 11-27-2021 Chart Update Jamari Avalos r Work Phone: [address] Work Phone: Start: 11-26-2021 Initial preventive medicine new pt age 18-39yrs Jamari Byrne Work Phone: [address] Work Phone: Start: 11-13-2021 AUDIT Jamari Avalos r Work Phone: [facility] Work Phone: Start: 08-03-2021 End: 08-04-2021 ambulatory KATIANA Diehl [facility] Start: 07-03-2021 AUDIT Rich L Oberha user Work Phone: [facility] Work Phone: Start: 05-29-2021 AUDIT Rich L Oberha user Work Phone: [facility] Work Phone: Start: 01-04-2021 Office outpatient vi sit 25 minutes Rich L Oberhauser Work Phone: [facility] Work Phone: Start: 12-26-2020 AUDIT Rich L Oberha user Work Phone: [facility] Work Phone: Start: 11-16-2020 AUDIT Rich L Oberha user Work Phone: [facility] Work Phone: Start: 11-02-2020 Office outpatient vi sit 25 minutes Rich L Oberhauser Work Phone: [facility] Work Phone: Start: 10-23-2020 End: 10-24-2020 Emergency department patient visit Epifanio Sorensen [facility] 15 Start: 08-24-2020 End: 08-24-2020 Orders Only Tessa Khaliljulienilsa Work Phone: [facility] Start: 07-19-2020 End: 07-20-2020 Patient encounter procedure [facility] Start: 07-19-2020 End: 07-19-2020 Subsequent hospital visit by physician Srini Medina Work Phone: [facility] Comment on above: Seizure (HCC) Start: 07-05-2020 End: 07-05-2020 Patient encounter procedure [facility] Start: 03-21-2020 End: 03-22-2020 Patient encounter procedure [facility] Start: 03-21-2020 End: 03-21-2020 Subsequent hospital visit by physician Maty Chavez Work Phone: [facility] Comment on above: MG (obstructive sle ep apnea) Start: 03-17-2020 End: 03-17-2020 Patient encounter procedure MATY CHAVEZ [facility] Start: 01-11-2020 Patient encounter procedure Rich Ng [facility] Work Phone: Start: 12-14-2019 Patient encounter procedure Rich Ng [facility] Work Phone: Start: 12-08-2019 End: 12-12-2019 Patient encounter procedure [facility] Start: 12-08-2019 End: 12-08-2019 Office outpatient new 45 minutes Srini Medina Work Phone: [facility] Comment on above: Seizure (HCC) Start: 12-07-2019 Patient encounter procedure [facility] Start: 11-09-2019 Patient encounter procedure Rich Ng [facility] Work Phone: Start: 10-21-2019 Patient encounter procedure Rich Ng [facility] Work Phone: Start: 09-29-2019 Patient encounter procedure Rich Ng [facility] Work Phone: Start: 09-27-2019 Patient encounter procedure Rich Ng [facility] Work Phone: Start: 05-19-2019 Patient encounter procedure Juno Blackburn [place] [id number] 10sec Work Phone: Start: 05-13-2019 Patient encounter procedure Juno Blackburn [place] [id number] [employer] Work Phone: Start: 03-21-2019 End: 03-21-2019 Emergency department patient visit Kelsey Stewart Work Phone: [facility] Comment on above: Abdominal cramps (Pr imary Dx); Nausea Start: 03-11-2019 End: 03-11-2019 Emergency department patient visit Charlie Cannon Work Phone: [facility] Comment on above: Anxiety (Primary Dx) Start: 02-10-2019 End: 02-10-2019 Emergency department patient visit Lloyd Quiles Work Phone: [facility] Comment on above: 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) Start: 10-06-2018 End: 10-07-2018 Emergency department patient visit Kelsey Stewart Work Phone: [facility] Comment on above: Viral upper respirat ory infection (Primary Dx) Start: 10-04-2018 End: 10-05-2018 Emergency department patient visit David Wilson Work Phone: [facility] Comment on above: Hyperglycemia (Prima ry Dx); Diabetes mellitus due to underlying condition with hyperosmolarity 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, without long-term current use of insulin (HCC) Start: 09-12-2018 End: 09-12-2018 Emergency department patient visit Verona Lopez [facility] Start: 07-16-2018 End: 07-16-2018 Emergency department patient visit Kelsey Stewart Facility:[facility] Start: 02-01-2018 End: 02-02-2018 Emergency department patient visit Elie MckoyJuno Hernadez Facility:[facility] Start: 01-23-2018 Emergency department patient visit FABIO Jhoan HAWK [facility] Start: 12-14-2017 End: 12-14-2017 Emergency department patient visit MILLY SINCLAIR Facility: Start: 11-30-2017 End: 11-30-2017 Emergency department patient visit PCP Unknown Physician Facility:[facility] Start: 11-21-2017 End: 11-21-2017 Ambulatory KADE L ALEXTRUONG Facility:[facility] Start: 11-18-2017 End: 11-19-2017 Patient encounter procedure [facility] Start: 11-15-2017 End: 11-15-2017 Emergency department patient visit VERONA ARMINDA Facility:[facility] Start: 10-09-2017 End: 10-09-2017 Emergency department patient visit VERONA ARMINDA Facility:[facility] Start: 09-28-2017 End: 09-28-2017 Emergency department patient visit VERONA ARMINDA Facility:[facility] Start: 09-18-2017 End: 09-18-2017 Emergency department patient visit JOSIE HERNANDEZ Facility:[facility] Start: 07-03-2017 End: 07-03-2017 Patient encounter procedure [facility] Menarche Rich Lopez er Work Phone: [facility] Work Phone: Comment on above: AGE 15; Procedures Date Procedure Procedure Detail Performing Clinician Start: 02-21-2025 Iaadiadoo influenza Faby Galarza PROMOTIONAL MODEL-WRAPPER HAND Work Phone: Start: 02-21-2025 SARS-CoV-2 (COVID-19 ) RNA [Presence] in Unspecified specimen by SUMIT with probe detection Leonie Galarza PROMOTIONAL MODEL-WRAPPER HAND Work Phone: Start: 02-19-2025 UA DIP,URINE HCG (POC) Ángela Norris PROMOTIONAL MODEL.WRAPPER HAND Work Phone: Start: 01-28-2025 Gluc bld gluc mntr d ev cleared fda spec home use Issac Romero PROMOTIONAL MODEL.WRAPPER HAND Work Phone: Start: 01-26-2025 Urnls dip stick/tabl et reagent auto microscopy Dr. Jamari Byrne MD Work Phone: Start: 01-26-[address] Jamari Byrne MD Work Phone: Start: 01-24-2025 Assay of troponin quantitative Ty Escotoersen DO Work Phone: Start: 01-24-2025 Urinalysis complete W Reflex Culture panel - Urine Ty Mckayla Mirtha DO Work Phone: Start: 01-24-2025 Urnls dip stick/tabl et reagent auto microscopy Ty Mckayla TomShannon DO Work Phone: Start: 01-24-2025 Comprehensive metabolic panel Ty Escotoersen DO Work Phone: Start: 01-24-2025 Troponin I.cardiac p trinh - Serum or Plasma by High sensitivity method Ty Escotoersen DO Work Phone: Start: 01-24-2025 Radiologic exam ches t single view Ty Escotoersen DO Work Phone: Start: 01-24-2025 Ecg routine ecg w/le ast 12 lds trcg only w/o i&r Ty Escotoersen DO Work Phone: Start: 01-23-[address] Jamari Byrne MD Work Phone: Start: 01-20-2025 Urnls dip stick/tabl et reagent [...] Kelsy Gonzalez Radha DO Work Phone: Start: 09-02-2024 Us preg [...] after 1st trimest 06/09 gestation Zayda Parker APRN.WRAPPER HAND Work Phone: Start: 07-01-2024 Radiologic exam chest 2 views Sixto Myers MD Work Phone: Start: 07-01-2024 Influenza virus A an d B and SARS-CoV-2 (COVID-19) identified in Respiratory specimen by SUMIT with probe detection Sixto Myers MD Work Phone: Start: 06-15-2024 Us nuchal kraus slucency 1st gestation Zayda Parker APRN.WRAPPER HAND Work Phone: Start: 06-07-2024 Hemoglobin A1c/Hemoglobin.total in Blood Kelsy L Radha DO Work Phone: Start: 05-26-2024 Urnls [...] Comment: Speci men Type: BLOOD SPECIMENOrdering Facility: [facility] Address: [address] [place] [address] Performed By: #### T SPN ####CC MAIN BLOOD BANKCLIA [id number] [place] [address] [place] Start: 05-07-2024 Us uterus l imited 1/> fetuses Zayda Parker APRN.WRAPPER HAND Work Phone: Start: 05-07-2024 Microscopic observat ion [Identifier] in Cervix by Cyto stain Reza Dyer DO Work Phone: Start: 05-03-2024 Hemoglobin A1c/Hemoglobin.total in Blood Kelsy L Radha DO Work Phone: Start: 04-18-2024 Gonadotropin chorion ic quantitative Angy Sierradervimal PROMOTIONAL MODEL-WRAPPER HAND Work Phone: Start: 04-18-2024 Urinalysis microscop ic panel - Urine Qualitative by Automated Angy Sierradervimal PROMOTIONAL MODEL-WRAPPER HAND Work Phone: Start: 04-18-2024 End: 04-18-2024 Iadna chlamydia trachomatis amplified probe tq Angy Staples [employer]ilder[employer] PROMOTIONAL MODEL-WRAPPER HAND Work Phone: Start: 04-18-2024 Urine test visual color cmprsn meths Angy Staples Bilderback PROMOTIONAL MODEL-WRAPPER HAND Work Phone: Start: 04-15-2024 Urinalysis MILLY Fernandez Comment on above: Result Comment: URIN ALYSIS Performed By: #### [id number] #### [facility],[address] [place] [address] Start: 09-15-2023 Basic metabolic 2000 panel - [...] Start: 07-19-2020 Electroencephalogram w/rec awake&drowsy Srini Kearns Medina Work Phone: Start: 10-21-2019 CT Head without Contrast Rich Ng Start: 10-21-2019 Localize cerebral se izure cptr portable eeg Rich Ng Start: 09-27-2019 Basic metabolic 1998 panel - Serum or Plasma Rich Ng Start: 09-27-2019 Blood count complete auto&auto difrntl wbc Rich Hernandez Start: 09-27-2019 Gonadotropin chorion ic quantitative Rich [...] olume] in Urine by Test strip Charlie [employer] Start: 02-10-2019 Choriogonadotropin ( test) [Presence] in Urine [employer] Work Phone: Start: 02-10-2019 Drugs of abuse urine screening test [facility] Work Phone: Start: 02-10-2019 Ethanol [Mass/volume ] [...] Stewart Work Phone: Start: 10-07-2018 Urinalysis Kelsey Kevin raymond Margie Work Phone: Start: 10-07-2018 Glucose [Mass/volume] in Blood [facility] Start: 10-05-2018 End: 10-05-2018 Glucose [Mass/volume] in Blood [facility] Start: 10-05-2018 Glucose [Mass/volume] in Blood [facility] Start: 10-05-2018 Evaluation [...] Phone: Start: 10-05-2018 LIGHT BLUE TOP Daisy Piaz Work Phone: Start: 10-05-2018 LIGHT GREEN TOP Miguel Paiz Work Phone: Start: 10-05-2018 RAINBOW DRAW Hailey Paiz Work Phone: Start: 10-05-2018 OBTAIN ARTERIAL BLOOD GASES Hailey Paiz Work Phone: Start: 10-05-2018 Choriogonadotropin ( test) [Presence] in Urine Hailey Paiz Work Phone: Start: 10-05-2018 Urinalysis Hailey Paiz Work Phone: Start: 10-04-2018 Glucose [Mass/volume] in Blood [facility] Start: 09-13-2018 Glucose blood reagent strip June Middleton Work Phone: Start: 09-13-2018 CBC, EDIF, PLATELET Clara ne [employer] Work Phone: Start: 09-13-2018 Choriogonadotropin ( test) [Presence] in Serum or Plasma [employer] Work Phone: Start: 09-13-2018 Comprehensive metabolic panel [employer] Work Phone: Start: 09-13-2018 Choriogonadotropin ( test) [Presence] in Urine [employer] Work Phone: Start: 09-13-2018 Urinalysis microscopic only [employer] Work Phone: Start: 09-13-2018 URINALYSIS, MACRO June Middleton Work Phone: Start: 05-06-2016 Microscopic observat ion [...] or Population) (1 - 1-dose 75+ series) [facility] Start: 2045 Zoster Vaccines (1 o f 2) Zoster Vaccines (1 of 2) [facility] Start: 10-04-2034 DTaP/Tdap/Td Vaccine s (8 - Td or Tdap) DTaP/Tdap/Td Vaccines (8 - Td or Tdap) [facility] Start: 10-04-2034 Tetanus vaccination TETANUS [facility] Start: 10-04-2034 Urine microalbumin profile DTaP,Tdap,Td Vaccine (8 - Td or Tdap) [facility] Start: 01-20-2030 Tetanus vaccination Tetanus: Every 1 0yrs [facility] Start: 05-07-2027 Screening for malign ant neoplasm of cervix [facility] Start: 07-16-2026 Glaucoma screening Diabetes: R etinopathy Screening [facility] Start: 02-22-2026 Glaucoma screening Diabetes: R etinopathy Screening [facility] Start: 01-13-2026 Glaucoma screening Diabetes: R etinopathy Screening [facility] Start: 11-06-2025 Yearly Adult Physical Yearly Adult P hysical [facility] Start: 08-03-2025 End: 08-03-2025 Patient encounter procedure 08/03/2025 10:20 AM EST Office Visit [facility] [address] [place] [address] Jamari Byrne MD [address] [facility] [address] [place] [address] [facility] Start: 07-23-2025 Hemoglobin A1c measurement HbA1C [facility] Start: 07-20-2025 End: 07-20-2025 Patient encounter procedure 07/20/2025 11:20 AM EST Office Visit Endocrinology [address] [place] [address] Kelsy Guillermo, DO [address] [place], [place] [id number] 6 month follow up Endocrinology Comment on above: 6 month follow up Start: 07-11-2025 End: 07-11-2025 ambulatory 07/11/2025 9:45 AM EST Results Only [facility] [address] [place] [address] [facility] Start: 07-10-2025 End: 10-09-2025 Comprehensive metabolic 2000 panel - Serum or Plasma COMPREHENSIVE METABOLIC PANEL Lab Routine 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, 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, 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 residential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 (HCC) Expected: 07/10/2025 (Approximate), Expires: 10/09/2025 [facility] Comment on above: Expected: 07/10/2025 (Approximate), Expires: 10/09/2025 Start: 07-10-2025 End: 10-09-2025 Hemoglobin A1c in Blood HEMOGLOBIN A1C Lab Routine 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, 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, 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 residential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 (HCC) Expected: 07/10/2025 (Approximate), Expires: 10/09/2025 [facility] Comment on above: Expected: 07/10/2025 (Approximate), Expires: 10/09/2025 Start: 07-10-2025 End: 10-09-2025 Lipid 1996 panel - Serum or Plasma LIPID PANEL, FASTING Lab Routine 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, 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, 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 (HCC) Expected: 07/10/2025 (Approximate), Expires: 10/09/2025 [facility] Comment on above: Expected: 07/10/2025 (Approximate), Expires: 10/09/2025 Start: 07-10-2025 End: 10-09-2025 Microalbumin/Creatinine [Mass Ratio] in Urine ALBUMIN/CREATININE RATIO, URINE Lab Routine 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, 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, 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 (HCC) Expected: 07/10/2025 (Approximate), Expires: 10/09/2025 [facility] Comment on above: Expected: 07/10/2025 (Approximate), Expires: 10/09/2025 Start: 07-10-2025 End: 10-09-2025 Thyrotropin [Units/volume] in Serum or Plasma THYROID STIMULATING HORMONE Lab Routine 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, 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, 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 residential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 (HCC) Expected: 07/10/2025 (Approximate), Expires: 10/09/2025 [facility] Comment on above: Expected: 07/10/2025 (Approximate), Expires: 10/09/2025 Start: 04-22-2025 Hemoglobin A1c measurement Diabetes: Hemoglobin A1C [facility] Start: 03-22-2025 Hemoglobin A1c measurement HbA1C [facility] Start: 03-09-2025 End: 03-09-2026 NM Stomach Views for gastric emptying solid phase W radionuclide PO NM gastric emptying solid Imaging Routine Diabetic gastroparesis associated with type 2 diabetes mellitus (Multi) Expected: 03/09/2025, Expires: 03/09/2026 [facility] Service Area Work Phone: Comment on above: Expected: 03/09/2025 , Expires: 03/09/2026 Start: 03-09-2025 End: 03-09-2025 Patient encounter procedure 03/09/2025 9:20 AM EDT Office Visit [facility] [address] [place] [id number] Jamari Byrne MD [address] [facility] [address] [place] [address] [facility] Start: 02-13-2025 Glaucoma screening Diabetes: R etinopathy Screening [facility] Start: 02-07-2025 COVID-19 VACCINE ( season) COVID-19 VACCINE ( season) [facility] Start: 02-07-2025 Influenza vaccination C [facility] Start: 02-04-2025 End: 02-04-2025 Patient encounter procedure 02/04/2025 10:20 AM EDT Office Visit [facility] [address] [place] [address] Jamari Byrne MD [address] [facility] [address] [place] [address] [facility] Start: 01-26-2025 [facility] Start: 01-23-2025 [facility] Start: 01-21-2025 [facility] Start: 01-20-2025 End: 01-20-2025 Follow-up encounter 01/20/2025 2:00 PM EDT Education Endocrinology [address] [place] [address] [place] [address] [place] [address] follow up Endocrinology Comment on above: follow up Start: 01-20-2025 End: 01-20-2025 Patient encounter procedure Endocrinology Comment on above: see me for post part um f/u Jan 20 (virtual or in person) 6 week post Start: 01-19-2025 End: 01-19-2025 Patient encounter procedure 01/19/2025 1:20 PM EDT Office Visit OB/Gynecology [address] [place], [place] [id number] Whit Morton MD [address] [place] [address] 6 week post & pre-op surgery 01/28 OB/Gynecology Comment on above: 6 week post & pre-op surgery 01/28 Start: 12-21-2024 End: 12-21-2024 Patient encounter procedure 12/21/2024 1:40 PM EDT Office Visit OB/Gynecology [address] [place] [address] William Gramajo MD [address] [place] [address] 2 week post OB/Gynecology Comment on above: 2 week post Start: 12-16-2024 Vital signs measurements [facility] Start: 12-16-2024 End: 12-16-2024 Patient encounter procedure OB/Gynecology Comment on above: NST OB/NST Start: 12-16-2024 Patient discharge [facility] Start: 12-13-2024 End: 12-13-2024 Patient encounter procedure [facility] Comment on above: BPP OB/BPP Start: 12-09-2024 End: 12-09-2024 Patient encounter procedure OB/Gynecology Comment on above: NST OB/NST Start: 12-09-2024 Patient discharge [facility] Start: 12-08-2024 [facility] Start: 12-07-2024 Documentation procedure [facility] Start: 12-07-2024 Administration of medication [facility] Start: 12-07-2024 Application of ice collar, cap or bag [facility] Start: 12-07-2024 Catheterization of vein [facility] Start: 12-07-2024 Introduction of urin stephen catheter [facility] Start: 12-07-2024 Measuring intake and output [facility] Start: 12-07-2024 Notification of physician [facility] Start: 12-07-2024 Procedure discontinued [facility] Start: 12-07-2024 Provision of activit y privileges [facility] Start: 12-07-2024 Vital signs measurements [facility] Start: 12-07-2024 End: 12-07-2024 [facility] Start: 12-07-2024 Admission procedure [facility] Start: 12-07-2024 Consultation [facility] Start: 12-06-2024 End: 12-06-2024 Patient encounter procedure [facility] Comment on above: BPP OB/BPP Start: 12-02-2024 End: 12-02-2024 Patient encounter procedure OB/Gynecology Comment on above: NST OB/NST Start: 11-30-2024 End: 11-30-2024 Patient encounter procedure 11/30/2024 3:30 PM EDT Routine Office Visit Maternal Medicine [address] [place] [address] GROWTH/BPP/MFM [facility]aternal Medicine Comment on above: GROWTH/BPP/MFM Start: 11-26-2024 Screening for malign ant neoplasm of cervix [facility] Start: 11-25-2024 End: 11-25-2024 Patient encounter procedure OB/Gynecology Comment on above: NST OB/NST Start: 11-22-2024 End: 11-22-2024 Patient encounter procedure 11/22/2024 9:00 AM EDT Routine Office Visit Maternal Medicine [address] [place] [address] BPP [facility]aternal [facility] Comment on above: BPP Start: 11-18-2024 End: 11-18-2024 Patient encounter procedure OB/Gynecology Comment on above: NST OB/NST Start: 11-15-2024 Nonstress test [facility] Start: 11-15-2024 Obstetric monitoring [facility] Start: 11-15-2024 Vital signs measurements [facility] Start: 11-15-2024 End: 11-15-2024 [facility] Start: 11-15-2024 Bacteria identified in Urine by Culture Urine Culture [facility] Start: 11-15-2024 End: 11-15-2024 Patient encounter procedure [facility]aternal Medicine Comment on above: BPP OB/BPP Start: 11-15-2024 Patient discharge [facility] Start: 11-11-2024 End: 11-11-2024 Patient encounter procedure OB/Gynecology Comment on above: NST NST/OB Start: 11-08-2024 End: 11-08-2024 Patient encounter procedure 11/08/2024 9:00 AM EDT Routine Office Visit Maternal Medicine [address] [place] [address] BPP [facility]aternal Medicine Comment on above: BPP Start: 11-05-2024 End: 02-04-2025 BILE ACIDS FRACT BLD [facility] Comment on above: Expected: 11/05/2024 , Expires: 02/04/2025 Start: 11-05-2024 End: 02-04-2025 BILE ACIDS, TOTAL [facility] Work Phone: Comment on above: Expected: 11/05/2024 , Expires: 02/04/2025 Start: 11-05-2024 End: 11-05-2024 Patient encounter procedure OB/Gynecology Comment on above: NST/OB NST/OB - encourage o ptho f/u JG-NST/OB Start: 11-04-2024 End: 11-04-2024 Patient encounter procedure 11/04/2024 2:20 PM EDT Office Visit [facility] [address] [place] [id number] Jamari Byrne MD [address] [facility] [address] [place] [address] [facility] Start: 11-04-2024 End: 11-04-2024 Follow-up encounter 11/04/2024 11:00 AM EDT Education Endocrinology [address], [place] [id number] [place] [address] [place], [place] [phone] follow up on 11/04/24 at 11 am. [...] Visit Maternal Medicine [address] [place] [address] BPP Maternal Medicine Comment on above: BPP Start: 10-25-2024 End: 01-24-2025 PARVOVIRUS B19 IGG+M [facility] Work Phone: Comment on above: Expected: 10/25/2024 , Expires: 01/24/2025 Start: 10-25-2024 End: 10-25-2024 Patient encounter procedure OB/Gynecology Comment on above: NST OB Routine with EKG Start: 10-18-2024 End: 10-18-2024 Patient encounter procedure 10/18/2024 1:50 PM EDT Routine Office Visit OB/Gynecology [address] [place] [address] Keshav Loving MD [address] [facility] [place] [address] OB Routine OB/Gynecology Comment on above: OB Routine Start: 10-16-2024 [facility] Start: 10-16-2024 Bacteria identified in Urine by Culture Urine Culture [facility] Start: 10-16-2024 Iv infusion therapy prophylaxis/dx ea hour THER/PROPH/DIAG IV INF [facility] Start: 10-16-2024 Iv infusion therapy/prophylaxis /dx 1st to 1 hr THER/PROPH/DIAG IV INF INIT [facility] Start: 10-16-2024 Patient discharge [facility] Start: 10-12-2024 End: 10-12-2024 ambulatory 10/12/2024 10:00 AM EDT Procedure Pediatric Cardiology [address] [place] [address] Pamela Haskins MD [address] [place] [address] FU echo Pediatric Cardiology Comment on above: FU echo Start: 10-12-2024 End: 10-12-2024 Patient encounter procedure 10/12/2024 10:00 AM EDT Office Visit Pediatric Cardiology [address] [place] [address] FU echo Pediatric Cardiology Comment on above: FU echo Start: 10-04-2024 End: 01-03-2025 Bacteria identified in Urine by Culture [facility] Comment on above: Expected: 10/04/2024 , Expires: 01/03/2025 Start: 10-04-2024 End: 01-03-2025 Protein/Creatinine [Mass Ratio] in Urine [facility] Comment on above: Expected: 10/04/2024 , Expires: 01/03/2025 Start: 10-04-2024 End: 10-04-2024 Patient encounter procedure Maternal Medicine Comment on above: Gr=owth OB Start: 09-24-2024 End: 09-24-2024 Patient encounter procedure 09/24/2024 3:15 PM EDT Routine Office Visit OB/Gynecology [address] [place] [address] Leonie Waldron APRN.CN [address] [place] [address] Supervision of high risk in second trimester (HCC) (Primary Dx); 27 weeks gestation of (HCC); Burning with urination; Vaginal discharge OB/Gynecology Comment on above: Supervision of high risk in second trimester (HCC) (Primary Dx); 27 weeks gestation of (HCC); Burning with urination; Vaginal discharge Start: 09-24-2024 Obstetric monitoring [facility] Start: 09-24-2024 [facility] Start: 09-24-2024 Vital signs measurements [facility] Start: 09-24-2024 Patient discharge [facility] Start: 09-20-2024 End: 09-20-2024 Patient encounter procedure 09/20/2024 1:40 PM EDT Office Visit Endocrinology [address] [place] [address] Kelsy Guillermo, DO [address] [place] [address] see me in 7 weeks for f/u. Endocrinology Comment on above: see me in 7 weeks fo r f/u. Start: 09-07-2024 End: 09-07-2024 Patient encounter procedure Maternal Medicine Comment on above: Growth OB Routine Start: 09-05-2024 Hemoglobin A1c measurement Diabetes: Hemoglobin A1C [facility] Start: 09-02-2024 End: 09-02-2024 Patient encounter procedure 09/02/2024 11:00 AM EDT Routine Office Visit Maternal Medicine [address] [place] [address] Growth [facility] Comment on above: Growth Start: 08-24-2024 End: 08-24-2024 ambulatory 08/24/2024 1:00 PM EDT Procedure Pediatric Cardiology [address] [place] [address] Pamela Haskins MD [address] [place] [address] Pre-existing type 2 diabetes mellitus in in first trimester [O24.111] Pediatric Cardiology Comment on above: Pre-existing type 2 diabetes mellitus in in first trimester [O24.111] Start: 08-24-2024 End: 08-24-2024 Patient encounter procedure 08/24/2024 1:00 PM EDT Office Visit Pediatric Cardiology [address] [place] [address] Pre-existing type 2 diabetes mellitus in in first trimester [O24.111] Pediatric Cardiology Comment on above: Pre-existing type 2 diabetes mellitus in in first trimester [O24.111] Start: 08-10-2024 End: 08-10-2024 Patient encounter procedure Maternal Medicine Comment on above: Anatomy Scan anatomy / mfm OB Routine Start: 08-03-2024 Hemoglobin A1c measurement Diabetes: Hemoglobin A1C [facility] Start: 07-26-2024 End: 07-26-2024 Patient encounter procedure 07/26/2024 2:00 PM EST Office Visit Endocrinology [address] [place] [address] Kelsy Guillermo, DO [address] [place], [place] [id number] 8 weeks v/u Endocrinology Comment on above: 8 weeks v/u Start: 07-13-2024 End: 07-13-2025 OBSTETRIC ULTRASOUND WHI OBSTETRIC ULTRASOUND WHI Anc Imaging Routine Encounter for anatomic survey Expected: 07/13/2024, Expires: 07/13/2025 [facility] Work Phone: Comment on above: Expected: 07/13/2024 , Expires: 07/13/2025 Start: 07-13-2024 End: 07-13-2024 Patient encounter procedure [facility]aternal Medicine Comment on above: Early Anatomy Scan OB Routine Start: 07-12-2024 End: 07-12-2024 Patient encounter procedure 07/12/2024 10:00 AM EST Office Visit OB/Gynecology [address] [place], [place] [id number] Lucy Mariscal APRN.WRAPPER HAND [address] [place] [address] ANNUAL OB/Gynecology Comment on above: ANNUAL Start: 06-16-2024 End: 06-16-2024 ambulatory 06/16/2024 10:00 AM EST [facility] Endocrinology [address] [place] [address] Carrie Larsen, [address] [address] [place] [address] see carpenter assistant (Carrie Larsen) virtual visit Endocrinology Comment on above: see carpenter assistant (Hiral Larsen) virtual visit Start: 06-15-2024 End: 09-14-2024 Chromosome 21 trisomy [Presence] in Blood or Tissue by Cytogenetics [facility] Work Phone: Comment on above: Expected: 06/15/2024 , Expires: 09/14/2024 Start: 06-15-2024 End: 06-15-2024 Patient encounter procedure Maternal Medicine Comment on above: Nuchal/ Consult to M FM Start: 06-09-2024 Medicare Advantage Annual Wellness Visit Medicare Advantage Annual Wellness Visit [facility] Start: 06-08-2024 End: 06-08-2024 Patient encounter procedure 06/08/2024 1:10 PM EST Routine Office Visit OB/Gynecology [address] [place] [address] Piper Julian MD [address] [place] [address] New Ob LMP 03/13/2024 OB/Gynecology Comment on above: New Ob LMP 03/13/2024 Start: 06-07-2024 End: 06-07-2024 Patient encounter procedure 06/07/2024 2:20 PM EST Office Visit Endocrinology [address] [place], [place] [id number] Kelsy Guillermo DO [address] [place] [address] see me in 4 weeks (virtual visit) Endocrinology Comment on above: see me in 4 weeks (v irtual visit) Start: 05-26-2024 End: 05-26-2024 Patient encounter procedure 05/26/2024 10:10 AM EST Routine Office Visit OB/Gynecology [address] [place], [place] [id number] Krys Kulkarni MD [address] [place] [place] [address] Previous MFM records in [facility] chart prep folder OB/Gynecology Comment on above: Previous MFM records in [facility] chart prep folder Start: 05-07-2024 End: 08-06-2024 ANEMIA REFLEX PANEL [facility] Work Phone: Comment on above: Expected: 05/07/2024 , Expires: 08/06/2024 Start: 05-07-2024 End: 08-06-2024 CARRIER SCREEN, STANDARD [facility] Comment on above: Expected: 05/07/2024 , Expires: 08/06/2024 Start: 05-07-2024 End: 08-06-2024 Hepatitis B virus surface Ag [Presence] in Serum [facility] Comment on above: Expected: 05/07/2024 , Expires: 08/06/2024 Start: 05-07-2024 End: 08-06-2024 Hepatitis C virus Ab [Presence] in Serum [facility] Comment on above: Expected: 05/07/2024 , Expires: 08/06/2024 Start: 05-07-2024 End: 08-06-2024 HIV 1+2 Ab [Presence] in Serum or Plasma by Immunoassay [facility] Comment on above: Expected: 05/07/2024 , Expires: 08/06/2024 Start: 05-07-2024 End: 05-07-2025 NUCHAL TRANSLUCENCY WHI NUCHAL TRANSLUCENCY WHI Anc Imaging Routine with uncertain dates in first trimester Expected: 05/07/2024, Expires: 05/07/2025 [facility] Comment on above: Expected: 05/07/2024 , Expires: 05/07/2025 Start: 05-07-2024 End: 05-07-2025 OBSTETRIC ULTRASOUND WHI OBSTETRIC ULTRASOUND WHI Anc Imaging Routine with uncertain dates in first trimester Expected: 05/07/2024, Expires: 05/07/2025 [facility] Comment on above: Expected: 05/07/2024 , Expires: 05/07/2025 Start: 05-07-2024 End: 08-06-2024 Protein/Creatinine [Mass Ratio] in Urine [facility] Comment on above: Expected: 05/07/2024 , Expires: 08/06/2024 Start: 05-07-2024 End: 08-06-2024 RUBELLA IGG ANTIBODY [facility] Comment on above: Expected: 05/07/2024 , Expires: 08/06/2024 Start: 05-07-2024 End: 08-06-2024 SYPHILIS TREPONEMAL W/REFLEX [facility] Comment on above: Expected: 05/07/2024 , Expires: 08/06/2024 Start: 05-07-2024 End: 08-06-2024 Thyrotropin [Units/volume] in Serum or Plasma [facility] Comment on above: Expected: 05/07/2024 , Expires: 08/06/2024 Start: 05-07-2024 End: 08-06-2024 TYPE + SCREEN [facility] Comment on above: Expected: 05/07/2024 , Expires: 08/06/2024 Start: 05-07-2024 End: 05-07-2024 Patient encounter procedure OB/Gynecology Comment on above: New Ob LMP 03/13/2024 Start: 05-04-2024 End: 05-04-2024 Patient encounter procedure 05/04/2024 2:20 PM EST Office Visit [facility] [address] [place] [phone] Jamari Byrne MD [address] [facility] [address] [place] [address] [facility] Start: 05-03-2024 End: 05-03-2024 Patient encounter procedure 05/03/2024 2:40 PM EST Office Visit Endocrinology [address] [place] [address] Kelsy Guillermo, DO [address] [place], [place] [id number] Insulin controlled gestational diabetes mellitus (GDM) in first trimester [O24.414] Endocrinology Comment on above: Insulin controlled g estational diabetes mellitus (GDM) in first trimester [O24.414] Start: 03-17-2024 Hemoglobin A1c measurement Diabetes: Hemoglobin A1C [facility] Start: 02-14-2024 Glaucoma screening Diabetes: R etinopathy Screening [facility] Start: 02-08-2024 Covid-19 Vaccine ( season) Covid-19 Vaccine ( season) [facility] Start: 02-08-[address] [facility] Start: 01-23-2024 End: 04-24-2024 Hemoglobin A1c/Hemoglobin.total in Blood Hemoglobin A1C Lab Routine Hyperglycemia due to diabetes mellitus (Multi) Expected: 01/23/2024 (Approximate), Expires: 04/24/2024 [facility] Service Area Work Phone: Comment on above: Expected: 01/23/2024 (Approximate), Expires: 04/24/2024 Start: 12-24-2023 End: 12-24-2023 Patient encounter procedure 12/24/2023 11:20 AM EDT Office Visit [facility] [address] [place] [phone] Jamari Byrne MD [address] [facility] [address] [place] [address] [facility] Start: 09-15-2023 End: 09-15-2023 Patient encounter procedure 09/15/2023 10:20 AM EDT Office Visit [facility] [address] [place] [phone] Jamari Byrne MD [address] [facility] [address] [place] [address] [facility] Start: 09-08-2023 End: 07-10-2024 Basic metabolic 2000 panel - Serum or Plasma Basic Metabolic Panel Lab Routine Hyperglycemia due to diabetes mellitus (CMS/HCC) Expected: 09/08/2023 (Approximate), Expires: 07/10/2024 [facility] Service Area Work Phone: Comment on above: Expected: 09/08/2023 (Approximate), Expires: 07/10/2024 Start: 09-08-2023 End: 07-10-2024 Hemoglobin A1c/Hemoglobin.total in Blood Hemoglobin A1C Lab Routine Hyperglycemia due to diabetes mellitus (CMS/HCC) Expected: 09/08/2023 (Approximate), Expires: 07/10/2024 [facility] Work Phone: Comment on above: Expected: 09/08/2023 (Approximate), Expires: 07/10/2024 Start: 07-10-2023 End: 05-09-2024 Basic metabolic 2000 panel - Serum or Plasma Basic Metabolic Panel Lab Routine Hyperglycemia due to diabetes mellitus (CMS/HCC) Expected: 07/10/2023, Expires: 05/09/2024 [facility] Work Phone: Comment on above: Expected: 07/10/2023 , Expires: 05/09/2024 Start: 07-10-2023 End: 05-09-2024 Hemoglobin A1c/Hemoglobin.total in Blood Hemoglobin A1C Lab Routine Hyperglycemia due to diabetes mellitus (CMS/HCC) Expected: 07/10/2023 (Approximate), Expires: 05/09/2024 [facility] Service Area Work Phone: Comment on above: Expected: 07/10/2023 (Approximate), Expires: 05/09/2024 Start: 07-10-2023 End: 07-10-2023 Patient encounter procedure 07/10/2023 10:20 AM EST Office Visit [place] [address] [facility] [address] [place] [phone] Jamari Byrne MD [address] [facility] [address] [place] [address] [facility] Start: 06-11-2023 Hemoglobin A1c measurement Diabetes: Hemoglobin A1C [facility] Start: 06-09-2023 Depression Assessment Depression [facility] Start: 04-23-2023 End: 04-23-2023 Patient encounter procedure 04/23/2023 10:20 AM EST Office Visit [facility] [address] [facility] [address] [place] [phone] Jamari Byrne MD [address] [facility] [address] [place] [address] [facility] Start: 03-15-2023 End: 12-14-2023 Hemoglobin A1c/Hemoglobin.total in Blood Hemoglobin A1C Lab Routine Hyperglycemia due to diabetes mellitus (CMS/HCC) Expected: 03/15/2023 (Approximate), Expires: 12/14/2023 [facility] Service Area Work Phone: Comment on above: Expected: 03/15/2023 (Approximate), Expires: 12/14/2023 Start: 03-05-2023 Hemoglobin A1c measurement Diabetes: Hemoglobin A1C [facility] Start: 02-08-2023 Ophthalmic examinati on and evaluation Diabetes: Retinopathy Screening [facility] Start: 02-07-2023 Covid-19 Vaccine ( season) Covid-19 Vaccine ( season) [facility] Start: 02-07-2023 Influenza vaccination Influenz a Vaccine (#1) [facility] Start: 11-27-2022 Patient encounter procedure ANNUAL, Provider: Genoveva Sutton, Status: Pen, Time: 8:30 AM [facility] [employer] Work Phone: Start: 11-26-2022 History and physical examination, annual for health maintenance Wellness Visit [facility] Start: 08-22-2022 FUV, Provider: Jamari Byrne, Status: Pen, Time: 11:20 AM FUV, Provider: Jamari Byrne, Status: Pen, Time: 11:20 AM [facility] Work Phone: Start: 08-03-2022 Hepatitis B surface antibody level LDL Cholesterol [facility] Start: 08-03-2022 Urine screening for protein [facility] Start: 02-22-2022 FUV, Provider: Jamari Byrne, Status: Pen, Time: 8:40 AM FUV, Provider: Jamari Byrne, Status: Pen, Time: 8:40 AM [facility] Work Phone: Start: 02-07-2022 Influenza vaccination Sequenti al Influenza Vaccine (#1) [facility] Start: 12-25-2021 FUV, Provider: Genoveva Sutton, Status: Pen, Time: 8:45 AM FUV, Provider: Genoveva Sutton, Status: Pen, Time: 8:45 AM [facility] Work Phone: Start: 12-17-2021 FUV, Provider: Genoveva Sutton, Status: Pen, Time: 9:15 AM FUV, Provider: Genoveva Sutton, Status: Pen, Time: 9:15 AM [facility] Work Phone: Start: 10-31-2021 Hemoglobin A1c measurement A1C [facility] Start: 04-05-2021 FUV, Provider: Rich Ng, Status: Pen, Time: 10:20 AM FUV, Provider: Rich Ng, Status: Pen, Time: 10:20 AM [facility] Work Phone: Start: 03-09-2021 Medicare Annual Wellness Visit Medicare Annual Wellness Visit [facility] Start: 01-04-2021 FUV, Provider: Rich Ng, Status: Pen, Time: 10:20 AM FUV, Provider: Rich Ng, Status: Pen, Time: 10:20 AM [facility] Work Phone: Start: 12-13-2020 Patient encounter procedure [facility] [place] Start: 11-08-2020 End: 11-08-2020 Office Visit 11/08/2020 Office Visit Neurology Srini Medina MD [address] [place] [address] [phone] [facility] Start: 10-11-2020 Urine microalbumin profile DTaP,Tdap,Td Vaccine (7 - Td or Tdap) [facility] Start: 10-07-2020 Depression Remission Assessment (PHQ9) Depression Remission Assessment (PHQ9) [facility] Start: 02-23-2020 Albumin DL <= 20 mg/ L (U) [Mass/Vol] URINE MICROALBUMIN [facility] Start: 02-23-2020 Hepatitis B screening Urine Albumin:Creatinine Ratio [facility] Start: 02-17-2020 End: 02-17-2020 Office Visit 02/17/2020 Office Visit Neurology Srini Medina MD [address] [place] [address] [phone] [facility] Start: 02-08-2020 Influenza vaccinatio n given Sequential Influenza Vaccine (#1) [facility] Start: 12-23-2019 Depression Remission Assessment (PHQ9) Depression Remission Assessment (PHQ9) [facility] Start: 10-21-2019 Localize cerebral seizure cptr portable eeg EEG: Ambulatory outpatient [facility] Work Phone: Start: 10-21-2019 CT Head withou t Contrast [facility] Work Phone: Start: 08-23-2019 HbA1c (Bld) [Mass fraction] A1C [facility] Start: 07-09-2019 Screening for malign ant neoplasm of cervix [facility] Start: 05-24-2019 End: 05-24-2019 Office Visit 05/24/2019 Office Visit Primary Care Verona Hilliard MD [address] [place] [address] [facility] Start: 05-06-2019 Screening for malign ant neoplasm of cervix PAP SMEAR [facility] Start: 02-07-2019 Influenza vaccination INFLUENZ A VACCINE (Season Ended) [facility] Start: 02-07-2019 Influenza vaccinatio n given SEQUENTIAL INFLUENZA VACCINE (#1) [facility] Start: 11-02-2018 HbA1c (Bld) [Mass fraction] A1C [facility] Start: 02-07-2018 Influenza vaccinatio n given SEQUENTIAL INFLUENZA VACCINE (#1) [facility] Start: 02-26-2017 Albumin DL <= 20 mg/ L (U) [Mass/Vol] URINE MICROALBUMIN [facility] Start: 2017 DTaP/Tdap/Td Vaccine s (1 - Tdap) DTaP/Tdap/Td Vaccines (1 - Tdap) [facility] Start: 01-28-2016 Screening for malign ant neoplasm of cervix [facility] Start: 11-22-2014 Pneumococcal vaccination Pneumococcal Vaccine (2 of 2 - PCV) [facility] Start: 11-22-2014 PNEUMOCOCCAL VACCINE SERIES (2 of 2 - PCV) PNEUMOCOCCAL VACCINE SERIES (2 of 2 - PCV) [facility] Start: 11-22-2014 Pneumococcal Vaccine : Pediatrics and At-Risk Adult Patients (2 of 2 - PCV) Pneumococcal Vaccine: Pediatrics and At-Risk Adult Patients (2 of 2 - PCV) [facility] Start: 2014 Hepatitis A Vaccines (1 of 2 - Risk 2-dose series) Hepatitis A Vaccines (1 of 2 - Risk 2-dose series) [facility] Start: 2014 Hepatitis B Vaccines (1 of 3 - 19+ 3-dose series) Hepatitis B Vaccines (1 of 3 - 19+ 3-dose series) [facility] Start: 2014 Pneumococcal Vaccine : Pediatrics and At-Risk Adult Patients (1 of 2 - PCV) Pneumococcal Vaccine: Pediatrics and At-Risk Adult Patients (1 of 2 - PCV) [facility] Start: 2014 Third diphtheria, tetanus and acellular pertussis (DTaP) vaccination TDAP (ADULT) [facility] Start: 2014 Zoster Vaccines (1 o f 2) Zoster Vaccines (1 of 2) [facility] Start: 2013 Annual PCP Team It Senior Analyst andres Disease Visit Annual PCP Team Chronic Disease Visit [facility] Start: 2013 Anxiety Screening Anxiety Screening [facility] Start: 2013 Depression Screening Depression Scre ening [facility] Start: 2013 Hepatitis C antibody , confirmatory test Hepatitis C Screening [facility] Start: 2013 Hepatitis C screening Hepatitis C Sc reening [facility] Start: 2013 HIV screening HIV Screening [facility] Start: 2013 Tetanus vaccination [facility] Start: 2011 COVID-19 Vaccine (1 of 2) COVID-19 Vaccine (1 of 2) [facility] Start: 2011 Screening for Chlamy clara trachomatis CHLAMYDIA SCREEN [facility] Start: 2010 HIV screening [facility] Start: 2010 Vaccination for agusto n papillomavirus [facility] Start: 06-09-2009 [facility]anus [facility] Start: 01-28-2008 HIV screening HIV SCREENING DISCUSSION [facility] Start: 01-28-2008 Varicella vaccination Varicell a Vaccines (1 of 2 - 13+ 2-dose series) [facility] Start: 2006 Vaccination for agusto n papillomavirus HPV Vaccines (1 - 2-dose series) [facility] Start: 2005 Diabetic foot examination [facility] Start: 2005 Glaucoma screening [facility] Start: 2005 Ophthalmic examinati on and evaluation Ophthalmology Exam [facility] Start: 2001 Pneumococcal Vaccine : Ped or At-Risk (1 - PCV) Pneumococcal Vaccine: Ped or At-Risk (1 - PCV) [facility] Start: 2001 Pneumococcal Vaccine : Pediatrics (0 to 5 Years) and At-Risk Patients (6 to 64 Years) (1 - PCV) Pneumococcal Vaccine: Pediatrics (0 to 5 Years) and At-Risk Patients (6 to 64 Years) (1 - PCV) [facility] Start: 2001 Pneumococcal Vaccine : Pediatrics (0 to 5 Years) and At-Risk Patients (6 to 64 Years) (1 of 2 - PCV) Pneumococcal Vaccine: Pediatrics (0 to 5 Years) and At-Risk Patients (6 to 64 Years) (1 of 2 - PCV) [facility] Start: 01-28-2000 COVID-19 Vaccine (#1) COVID-19 Vacci ne (#1) [facility] Start: 1998 History and physical examination, annual for health maintenance Wellness Visit [facility] Start: 01-28-1996 MMR Vaccines (1 of 1 - Standard series) MMR Vaccines (1 of 1 - Standard series) [facility] Start: 01-28-1996 Varicella vaccination Varicell a Vaccines (1 of 2 - 2-dose childhood series) [facility] Start: 1995 COVID-19 Vaccine (#1) COVID-19 Vacci ne (#1) [facility] Start: 1995 Depression screening using PHQ-9 (Patient Health Questionnaire 9) score DEPRESSION SCREENING (PHQ9) [facility] Start: 1995 GONORRHEA SCREEN [facility] Start: 1995 Hepatitis B Vaccines (1 of 3 - 3-dose series) Hepatitis B Vaccines (1 of 3 - 3-dose series) [facility] Start: 1995 Hepatitis C screening HEPATITI S C VIRUS SCREENING [facility] Start: 1995 Lipid panel Lipid Panel [facility] Start: 1995 Medicare Annual Wellness Visit Medicare Annual Wellness Visit (AWV) [facility] Start: 1995 Screening for Chlamy clara trachomatis Chlamydia Screening [facility] End: 04-18-2024 Bacteria identified in Urine by Culture [facility] Work Phone: Comment on above: Once (Lab) for 1 Occ urrences starting 04/18/2024 until 04/18/2024 Bacteria identified in Urine by Culture URINE CULTURE Microbiology Routine with uncertain dates in first trimester 05/07/2024 10:24 AM [facility] Bacteria identified in Urine by Culture BACTERIAL CULTURE, URINE Microbiology Routine Burning with urination 09/24/2024 9:17 AM EDT [facility] Work Phone: BACTERIAL VAGINOSIS NAAT BACTERIAL VAGINOSIS NAAT Lab Routine Vaginal discharge during in first trimester 05/07/2024 10:24 AM EST [facility] BACTERIAL VAGINOSIS NAAT BACTERIAL VAGINOSIS NAAT Lab Routine Vaginal discharge 09/24/2024 9:17 AM EDT [facility] BACTERIAL VAGINOSIS NAAT BACTERIAL VAGINOSIS NAAT Lab Routine Vaginal itching Ordered: 11/18/2024 [facility] Work Phone: Comment on above: Ordered: 11/18/2024 End: 01-03-2025 BIOPHYSICAL PROFILE US WHI BIOPHYSICAL PROFILE US I Anc Imaging Routine Supervision of high risk in third trimester ([facility]) Pre-existing type 2 diabetes mellitus in in first trimester ([facility]) Once per week for 10 Occurrences starting 10/05/2024 until 01/03/2025 [facility] Comment on above: Once per week for 10 Occurrences starting 10/05/2024 until 01/03/2025 JOSUÉ/TRICHOMONAS NAAT JOSUÉ/TRICHOMONAS NAAT Lab Routine Vaginal discharge during in first trimester 05/07/2024 10:24 AM [facility] JOSUÉ/TRICHOMONAS NAAT JOSUÉ/TRICHOMONAS NAAT Lab Routine Vaginal discharge 09/24/2024 9:17 AM EDT [facility] JOSUÉ/TRICHOMONAS NAAT JOSUÉ/TRICHOMONAS NAAT Lab Routine Vaginal itching Ordered: 11/18/2024 [facility] Comment on above: Ordered: 11/18/2024 Cast care: wet Wet prep, genita l Microbiology Routine Vaginal discharge Ordered: 08/17/2022 [facility] Work Phone: Comment on above: Ordered: 08/17/2022 End: 12-08-2020 Ceruloplasmin measurement Ceruloplasmin Lab Routine Seizure ([facility]) 1 Occurrences starting 12/08/2019 until 12/08/2020 [facility] Comment on above: 1 Occurrences starti ng 12/08/2019 until 12/08/2020 Ceruloplasmin measurement Ceruloplasmin Lab Routine Seizure ([facility]) 12/08/2019 8:42 AM EDT [facility] Chlamydia trachomati s rRNA assay Chlamydia/GC/Trichomo savannah Amplified RNA Microbiology Routine Vaginal discharge Ordered: 08/17/2022 [facility] Comment on above: Ordered: 08/17/2022 Chlamydia trachomatis+Neisseria gonorrhoeae DNA [Presence] in Unspecified specimen by SUMIT with probe detection GONORRHEA/CHLAMYDIA NAAT Lab Routine with uncertain dates in first trimester 05/07/2024 10:24 AM EST [facility] End: 01-24-2025 ECG 12 Lead [facility] Work Phone: Comment on above: Once for 1 Occurrenc es starting 01/24/2025 until 01/24/2025 End: 10-04-2025 ECG COMPLETE ECG COMPLETE ECG Routine History of pre-eclampsia 29 weeks gestation of ([facility]) Pre-existing type 2 diabetes mellitus in in third trimester ([facility]) Supervision of high risk in third trimester ([facility]) 1 Occurrences starting 10/04/2024 until 10/04/2025 [facility] Work Phone: Comment on above: 1 Occurrences starti ng 10/04/2024 until 10/04/2025 End: 06-15-2025 ECHO ECHO Cardiology Routine Pre-existing type 2 diabetes mellitus in in first trimester 1 Occurrences starting 06/15/2024 until 06/15/2025 [facility] Comment on above: 1 Occurrences starti ng 06/15/2024 until 06/15/2025 End: 04-18-2024 Extra Urine [place] Tube Extra Urine [facility] Lab Timed Once for 1 Occurrences starting 04/18/2024 until 04/18/2024 [facility] Work Phone: Comment on above: Once for 1 Occurrenc es starting 04/18/2024 until 04/18/2024 End: 05-21-2024 Extra Urine [place] Tube [facility] Work Phone: Comment on above: Once for 1 Occurrenc es starting 05/21/2024 until 05/21/2024 End: 01-24-2025 Extra Urine [place] Tube [facility] Work Phone: Comment on above: Once for 1 Occurrenc es starting 01/24/2025 until 01/24/2025 End: 01-02-2025 nonstress test NON-STRESS TEST Procedures Routine History of pre-eclampsia 29 weeks gestation of (HCC) Pre-existing type 2 diabetes mellitus in in third trimester ([facility]) Supervision of high risk in third trimester ([facility]) 2x per week for 16 Occurrences starting 10/04/2024 until 01/02/2025 [facility] Comment on above: 2x per week for 16 O ccurrences starting 10/04/2024 until 01/02/2025 Hemoglobin A1c/Hemoglobin.total in Blood HEMOGLOBIN A1C (POC) Lab Routine 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, 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, 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 residential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 ([facility]) Ordered: 01/20/2025 [facility] Work Phone: Comment on above: Ordered: 01/20/2025 Lactate dehydrogenas e measurement [facility] Magnesium measurement [facility] Neisseria gonorrhoea e nucleic acid detection Chlamydia/Gonorrhoeae Amplified RNA Microbiology Routine Vaginal discharge Ordered: 08/17/2022 [facility] Comment on above: Ordered: 08/17/2022 End: 12-08-2020 Nuclear Ab IF (S) [Titer] ILSA Lab Routine Seizure ([facility]) 1 Occurrences starting 12/08/2019 until 12/08/2020 [facility] Comment on above: 1 Occurrences starti ng 12/08/2019 until 12/08/2020 Nuclear Ab IF (S) [Titer] ILSA Lab Routine Seizure ([facility]) 12/08/2019 8:42 AM EDT [facility] End: 11-26-2024 OBSTETRIC ULTRASOUND WHI OBSTETRIC ULTRASOUND I Anc Imaging Routine Obesity affecting in first trimester, unspecified obesity type Pre-existing type 2 diabetes mellitus in in first trimester Once per month for 4 Occurrences starting 08/10/2024 until 11/26/2024 [facility] Work Phone: Comment on above: Once per month for 4 Occurrences starting 08/10/2024 until 11/26/2024 PAP TEST PAP TEST Lab Minerva Gastelum for supervision of high risk in first trimester, antepartum Screening for cervical cancer 05/07/2024 10:48 AM EST [facility] Patient Education [facility] Work Phone: Patient referral [facility] Work Phone: End: 01-24-2025 Pulse oximetry, continuous Pulse oximetry, continuous Respiratory Care STAT Continuous until discontinued starting 01/24/2025 [facility] Service Area Work Phone: Comment on above: Continuous until dis continued starting 01/24/2025 End: 12-08-2020 Reagin Ab RPR Ql (S) RPR Lab Routine Seizure ([facility]) 1 Occurrences starting 12/08/2019 until 12/08/2020 [facility] Comment on above: 1 Occurrences starti ng 12/08/2019 until 12/08/2020 Reagin Ab RPR Ql (S) RPR Lab Rou eileen Seizure ([facility]) 12/08/2019 8:42 AM EDT [facility] Trichomonas vaginali s Amplified RNA Trichomonas vaginalis Amplified RNA Microbiology Routine Vaginal discharge Ordered: 08/17/2022 [facility] Comment on above: Ordered: 08/17/2022 Urate [Mass/volume] in Serum or Plasma [facility] End: 04-18-2024 Urinalysis complete W Reflex Culture panel - Urine [facility] Area Work Phone: Comment on above: Once (Lab) for 1 Occ urrences starting 04/18/2024 until 04/18/2024 End: 05-21-2024 Urinalysis complete W Reflex Culture panel - Urine [facility] Area Work Phone: Comment on above: Once (Lab) for 1 Occ urrences starting 05/21/2024 until 05/21/2024 End: 01-24-2025 Urinalysis complete W Reflex Culture panel - Urine [facility] Work Phone: Comment on above: STAT (Lab) for 1 Occ urrences starting 01/24/2025 until 01/24/2025 Urine culture [facility] Urine culture [facility] URINE OB DIP B/O URINE OB DIP B/ O Lab Routine Pre-existing type 2 diabetes mellitus in in third trimester ([facility]) Supervision of high risk in third trimester ([facility]) History of pre-eclampsia H/O macrosomia in in prior , currently ([facility]) 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 Planned Goals not documented [facility] Work Phone: Immunizations Immunization Date Immunization Notes Care Provider Shirley smiley 10-04-2024 tetanus toxoid, redu vicki diphtheria toxoid, and acellular pertussis vaccine, adsorbed Piper Julian MD Work Phone: [facility] 03-27-[address] Jamari Byrne MD Work Phone: [facility] 03-27-2016 influenza virus vacc ine, unspecified formulation [facility] 11-22-2013 pneumococcal polysaccharide vaccine, 23 valent Piper Julian MD Work Phone: [facility] 03-29-2013 influenza, seasonal, injectable Piper Julian MD Work Phone: [facility] 03-29-2013 influenza virus vacc ine, unspecified formulation Mary GOODWIN Work Phone: [facility] 09-17-2012 hepatitis A vaccine, pediatric/adolescent dosage, 2 dose schedule Piper Julian MD Work Phone: [facility] 01-30-2012 hepatitis A vaccine, pediatric/adolescent dosage, 2 dose schedule Piper Julian MD Work Phone: [facility] 10-11-2010 HPV, unspecified formulation Piper Julian MD Work Phone: [facility] 10-11-2010 tetanus toxoid, redu vicki diphtheria toxoid, and acellular pertussis vaccine, adsorbed Piper Julian MD Work Phone: [facility] 11-05-2007 human papilloma viru s vaccine, quadrivalent Piper Julian MD Work Phone: [facility] 09-03-2007 HPV, unspecified formulation Piper Julian MD Work Phone: [facility] 09-03-2007 meningococcal polysaccharide vaccine (MPSV4) Piper Julian MD Work Phone: [facility] 11-27-2000 diphtheria, tetanus toxoids and acellular pertussis vaccine, unspecified formulation Piper Julian MD Work Phone: [facility] 11-27-2000 measles, mumps and rubella virus vaccine Piper Julian MD Work Phone: [facility] 06-09-1999 HPV, unspecified formulation Lloyd Quiles [facility] 03-05-1999 haemophilus influenz ae type b vaccine, conjugate unspecified formulation Piper Julian MD Work Phone: [facility] 03-05-1999 trivalent poliovirus vaccine, live, oral Piper Julian MD Work Phone: [facility] 02-15-1998 diphtheria, tetanus toxoids and acellular pertussis vaccine, unspecified formulation Piper Julian MD Work Phone: [facility] 07-26-1997 diphtheria, tetanus toxoids and pertussis vaccine Piper Julian MD Work Phone: [facility] 07-26-1997 haemophilus influenz ae type b vaccine, conjugate unspecified formulation Piper Julian MD Work Phone: [facility] 07-26-1997 trivalent poliovirus vaccine, live, oral Piper Julian MD Work Phone: [facility] 04-26-1997 diphtheria, tetanus toxoids and pertussis vaccine Piper Julian MD Work Phone: [facility] 04-26-1997 haemophilus influenz ae type b vaccine, conjugate unspecified formulation Piper Julian MD Work Phone: [facility] 04-26-1997 measles, mumps and rubella virus vaccine Piper Julian MD Work Phone: [facility] 04-26-1997 trivalent poliovirus vaccine, live, oral Piper Julian MD Work Phone: [facility] 01-14-1996 DTP-Haemophilus influenzae type b conjugate vaccine Piper Julian MD Work Phone: [facility] 01-14-1996 hepatitis B vaccine, pediatric or pediatric/adolescent dosage Piper Julian MD Work Phone: [facility] 01-14-1996 trivalent poliovirus vaccine, live, oral Piper Julian MD Work Phone: [facility] 1995 hepatitis B vaccine, adult dosage Piper Julian MD Work Phone: [facility] 1995 hepatitis B vaccine, adult dosage Piper Julian MD Work Phone: [facility] Payers Date Payer Category Payer Unknown [id number] 2024 Self-pay 2024 Medicare (Managed Care) 1.2. [id number] 2022 Dual Eligibility Medicare/Medicaid Organization [id number] 2022 Medicaid [id number] [id number] .[id number] 2021 Medicare [id number]. 1.13.159.2 .[id number] 2021 Medicare [id number] 2019 Unknown 2016 Medicaid [id number] 2016 Unknown [id number] 2016 Medicaid [id number] 2016 Medicaid [facility] MEDICAID [employer] MED[employer]ID [id number] 2016-Present [id number] .[id number] 2016 Unknown [id number] 1.2.840.710749.1.13.172.2 .7.3.014792.315 1995 Unknown [id number] 2.16.840.1.366501.3.579.2 .479 1995 Unknown [id number] 2.16.840.1.514271.3.579.2 .479 1995 Unknown [id number] 2.16.840.1.166114.3.579.2 .900 1995 Unknown [id number] 2.16.840.1.363629.3.579.2 .903 1995 Unknown [id number] 2.16.840.1.156215.3.579.2 .903 1995 Unknown [id number] 2.16.840.1.929354.3.579.2 .903 1995 Unknown [id number] 2.16.840.1.344042.3.579.2 .90 1995 Unknown [id number] 2.16.840.1.191468.3.579.2 .903 1995 Unknown [id number] 2.16840.1.320837.3.579.2 .90 1995 Unknown [id number] 2.16840.1.186641.3.579.2 .903 1995 Unknown [id number] 2.16.840.1.628836.3.579.2 .174 1995 Unknown [id number] 2.16.840.1.289156.3.579.2 .903 1995 Unknown [id number] 2.16.840.1.982655.3.579.2 .651 1995 Unknown [id number] 2.16840.1.357639.3.579.2 .651 1995 Unknown [id number] 2.16.840.1.514471.3.579.2 .1245 1995 Unknown [id number] 2.16.840.1.764052.3.579.2 .1245 1995 Unknown [id number] 2.16.840.1.293410.3.579.2 .983 1995 Unknown [id number] 2.16.840.1.954782.3.579.2 .983 1995 Unknown [id number] 2.840.1.649779.3.579.2 .1243 1995 Unknown [id number] 2.840.1.136742.3.579.2 .124 1995 Unknown [id number] 2.840.1.246591.3.579.2 .124 1995 Unknown [id number] 2.840.1.520456.3.579.2 .124 1995 Unknown [id number] 2.0.1.953074.3.579.2 .1243 1995 Unknown [id number] 2.0.1.453017.3.579.2 .1242 1995 Unknown [id number] 07.25.830.1.150723.3.579.2 .1242 1995 Unknown [id number] 2.0.1.886283.3.579.2 .1242 1995 Unknown [id number] .0.1.416544.3.579.2 .12406-09-1899 Unknown [id number] Medicaid MEDICAID [facility] [id number] Effective for all dates [id number] .7.3.519313.315 Unknown [id number] 840.1.397476.3.579.2 .462 Unknown [id number] 840.1.697004.3.579.2 .462 Unknown [id number] 840.1.717610.3.579.2 .462 Unknown [id number] 840.1.398163.3.579.2 .462 Unknown [id number] 07.25.830.1.243814.3.579.2 .462 Unknown [id number] 2.16.840.1.819244.3.579.2 .462 Unknown [id number] 2.16.840.1.768048.3.579.2 .462 Unknown [id number] 2.16.840.1.644227.3.579.2 .462 Unknown [id number] 2.16.840.1.896308.3.579.2 .462 Unknown [id number] 2.16.840.1.391806.3.579.2 .462 Social History Date Type Detail Facility Start: 09-12-2018 End: 05-03-2024 Tobacco smoking status INIS Current every day smoker [facility] Start: 12-24-2009 End: 06-03-2016 History of tobacco use Cigarette Smoker [facility] Start: 09-12-2018 End: 03-09-2025 Cigarettes smoked current (pack per day) - Reported [employer] Comment on above: 06/10 PPD; Start: 1995 Sex Assigned At Not on file [facility] Start: 02-10-2019 End: 08-17-2022 Alcohol intake Ex-drinker (finding) [facility] Start: 06-23-2016 Alcohol Comment [facility] Start: 12-08-2019 End: 03-09-2025 Tobacco use and exposure Never used [facility] Start: 08-07-2022 End: 09-06-2024 Exposure to SARS-CoV-2 (event) Not sure [facility] Tobacco smoking consumption unknown [facility] Start: 12-13-2022 End: 03-09-2025 Tobacco use panel [facility] Work Phone: Start: 1995 [facility] Start: 03-12-2017 Gender identity Identifies as female gender (finding) [facility] Work Phone: Start: 09-20-2022 Sexual orientation Bisexual (finding ) [facility] Work Phone: Start: 08-19-2023 End: 02-19-2025 Alcohol intake Current non-drinker of alcohol (finding) [facility] Start: 12-11-2016 End: 05-04-2022 National Score (1-100), lower number is lower risk 80 [facility] Start: 04-18-2024 End: 03-09-2025 Alcoholic beverage intake Lifetime non-drinker (finding) [facility] Work Phone: The thought of harming myself has occurred to me Never [facility] Start: 05-03-2024 Education 15 [facility] Start: 03-27-2024 [facility] Start: 05-28-2024 Sexual orientation Heterosexual (fin zain) [facility] Start: 09-06-2024 Tobacco Comment Smokes 2 cigar ettes a day [facility] Work Phone: Start: 03-12-2017 End: 09-24-2024 Sex Female (finding) [facility] Start: 03-09-2025 Tobacco smoking status NHIS Ex-smoker [facility] Start: 12-24-2009 History of tobacco use Current smoker [facility] Work Phone: NEGATED: Highlighted row - [facility] Work Phone: Medical Equipment Procedure Code Equipment Code Equipment Origin al Text Equipment Identifier Dates [id number] Start: 05-05-2018 End: 05-04-2024 Inject 1 each as directed 2 (two) times a day as needed . [id number] Start: 05-05-2018 by Miscellaneous route daily as needed . [id number] Start: 02-22-2019 Inject 1 each as directed daily as needed . [id number] Start: 02-22-2019 Accu-Chek Soraya Plus In Vitro [...] Lancets USE DIRECTED. Quantity: 1 Refills: 3 Rich Ng DO Start : 28-Sep-2019 Active [address] Start: 09-28-2019 1 strip 1 (one) time each day. [id number] Start: 11-13-2021 1 (one) time each day. [id number] Inject nightly [id number] Start: 12-13-2022 End: 12-13-2023 Use to inject nightly [id number] Sta rt: 12-20-2022 End: 12-25-2023 Use with lantus pen 10 units at bedtime subcutaneous [id number] Start: 03-17-2023 Use to inject 4 times per day [id number] Start: 12-25-2023 End: 12-24-2024 4 times/day [id number] Start: 05-03-2024 End: 01-13-2025 Use with blood g lucose test four times a day. [id number] Start: 06-14-2024 End: 09-27-2024 Use with blood g lucose test four times a day. [id number] Start: 06-14-2024 End: 09-24-2024 Use as instructe d - TEST BLOOD SUGARS 4 TIMES DAILY [id number] Start: 08-03-2024 Use with blood g lucose test four times a day. Insulin Dep? Yes [id number] Start: 08-03-2024 End: 08-10-2024 Use with blood g lucose test four times a day. Insulin Dep? Yes [id number] Start: 08-10-2024 4 TIMES/DAY [id number] Start: 01-13-2025 Goals Date Patient Goal Desired Activity /State Personal health goal Functional Status Date Assessment Result Facility 03-09-2025 Patient Health Questionnaire 2 item (PHQ-2) [Reported] [facility] Work Phone: 03-09-2025 Functional status 128/80 025 8:17 AM EDT Tiffanie Harvey MA 128/80 [facility] Work Phone: 03-09-2025 Vital signs 78 03/09/2025 8: 17 AM EDT Tiffanie Harvey MA [facility] Work Phone: 01-24-2025 [place] - suicide severity rating scale screener - recent [C-SSRS] [facility] Work Phone: 12-21-2016 Are you deaf, or do you have serious difficulty hearing No 12/21/2016 10:45 AM Krys Du RN No [facility] 12-21-2016 Are you blind, or do you have serious difficulty seeing, even when wearing glasses No 12/21/2016 10:45 AM Krys Du, BETSY No [facility] 12-21-2016 Do you have serious difficulty walking or climbing stairs No 12/21/2016 10:45 AM Krys Du, BETSY No [facility] 12-21-2016 Do you have difficul ty dressing or bathing No 12/21/2016 10:45 AM Krys Du, BETSY [facility] 12-21-2016 Because of a physica l, mental, or emotional condition, do you have difficulty doing errands alone such as visiting a physician's office or shopping No 12/21/2016 10:45 AM Krys Du, BETSY No [facility] Work Phone: NEGATED: Highlighted row Functional performance Functional status health issues are not documented Disease [place] [id number] [address] Work Phone: Mental Status Date Assessment Result Facility 12-16-2024 Cognitive function Level Of Cons ciousness Awake;Alert [facility] Work Phone: 12-21-2016 Because of a physical, mental, or emotional condition, do you have serious difficulty concentrating, remembering, or making decisions No 12/21/2016 10:45 AM Krys Du, BETSY No [facility] NEGATED: Highlighted row Cognitive function [Interpretation] Cognitive status health issues are not documented Disease [place] [id number] Work Phone: Clinical Notes 01-01-2017 to 03-09-2025 Jamari Byrne MD - 03/09/2025 8:00 AM EDTPatient InstructionsTara Hindser, BATCH MAKER - 02/21/2025 6:10 PM EDTLeonie Galarza, PROMOTIONAL MODEL-WRAPPER HAND - 02/21/2025 6:10 PM EDTPatient InstructionsPatient Instructions Note Date & Type Note Facility 03-09-2025 History of Presen t illness Narrative Subjective Patient ID: Melissa Drummond is a 30 y.o. female who presents for Annual Exam (Still having complaints of congestion and loss of appetite. Has been having n/v x 2 weeks. ). HPI Patient Health Questionnaire-2 Score: 4 (03/09/2025 8:22 AM) Smoking former [facility] Depressed and irritiated and counseling center in [place] Wanting start CBT EMDR EKG sinus Tachycardia Endo [facility] DM x 16 years Currently on no insulin Back on metformin ER states was getting hpoglycemia On glipizide BG 111 this No appetite No eating More psychological Swallowing anxiety After eating feels like something is full Esdophagus feels raw Never had gastric empyting study Pyrosis feels like GERD taking tums Vomitting x 2 pe week Quit smoking Less sob and using albuterol about the same Unable to get spacer Has allergy testing per ENT does not want allergy shots getting second opinion Caffeine 12 oz per day No alcohol 3 months PP Suffering Sick N and Vomiting with periods seems worse Last month was last peiriod and first since deliver Not breast feeding Review of Systems Objective Visit Vitals BP 128/80 (BP Location: Right arm) Pulse 78 Ht 1.575 m (5' 2) Wt 81.2 kg (179 lb) SpO2 100% BMI 32.74 kg/m OB Status Having periods Smoking Status Former BSA 1.88 m Physical Exam Vitals reviewed. Constitutional: Appearance: Normal appearance. HENT: Head: Normocephalic and atraumatic. Eyes: Conjunctiva/sclera: Conjunctivae normal. Cardiovascular: Rate and Rhythm: Normal rate and regular rhythm. Pulmonary: Effort: Pulmonary effort is normal. Breath sounds: Normal breath sounds. Abdominal: General: Abdomen is flat. Bowel sounds are normal. Tenderness: There is abdominal tenderness. Comments: Epigastric and slight left upper quadrant. Musculoskeletal: Cervical back: Neck supple. Skin: General: Skin is warm and dry. Neurological: General: No focal deficit present. Mental Status: She is alert and oriented to person, place, and time. Psychiatric: Mood and Affect: Mood normal. Behavior: Behavior normal. Thought Content: Thought content normal. Judgment: Judgment normal. Assessment/Plan Diagnoses and all orders for this visit: Diabetic gastroparesis associated with type 2 diabetes mellitus (Multi) - NM gastric emptying solid; Future - omeprazole (PriLOSEC) [address] capsule; Take 1 capsule (20 mg) by mouth once daily. Do not crush or chew. Anxiety and depression Gastroesophageal reflux disease, 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 esophagitis present If there is no improvement after 2 months of PPI therapy will refer to GI for possible EGD. Jamari Byrne MD 03/09/25 8:57 AM documented in this encounter [facility] Work Phone: 03-09-2025 Instructions Jamari Byrne MD - 03/09/2025 8:00 AM EDT Current weight: 81.2 kg (179 lb) Weight change since last visit (-) denotes wt loss -7.4 lbs Weight loss needed to achieve BMI 25: 42.6 Lbs Weight loss needed to achieve BMI 30: 15.3 Lbs documented in this encounter [facility] Work Phone: 02-21-2025 History of Presen t illness Narrative Main historian: Patient Patient presents with Cough Associated symptoms: N/V, cough- productive at times, congestion Onset: 5 days Self treatments: steam, tylenol, Alleviating factors: n/a Aggravating factors: n/a Exposures: none known HPI Melissa Crowe Chavez 1995 presents to the [facility] with Chief Complaint Patient presents with Cough 'Main historian: Patient Patient presents with Cough Associated symptoms: N/V states she has vomited 4 times in the past 24 hours reports emesis was mostly mucus denies any hematemesis, cough- productive at times, nasal congestion States her symptoms have been waxing and waning. Denies any chest pain shortness for breath or unusual swelling hemoptysis or palpitations reports she is not currently denies any concerns for Onset: 5 days Self treatments: steam, tylenol, Alleviating factors: n/a Aggravating factors: n/a Exposures: none known History Allergies[1] Current Outpatient Medications Medication Sig FLUoxetine 20 MG capsule Take 1 capsule by mouth daily. fluticasone 50 MCG/ACT Suspension nasal spray 2 sprays per nostril twice a day for 7 days. (Patient not taking: Reported on 02/21/2025) glucose blood test strips (emo2 Incuch Verio) Strip strip 4 strips by Instructed route 4 times daily. guaiFENesin-dextromethorphan 30-600 MG Tab SR 12 HR Take 1 tablet by mouth 2 times daily as needed for Cold Symptoms, Cough, Congestion or Rhinitis. HumuLIN N KwikPen 100 UNIT/ML injection Inject 90 Units under the skin at bedtime. Insulin lispro, 1 Unit Dial, 100 UNIT/ML Solution Pen-injector Inject 23 Units under the skin 3 times daily (take before meals). No family history on file. Past Medical History[2] Past Surgical History[3] Social History Socioeconomic History Marital status: Spouse name: Not on file Number of children: Not on file Years of education: Not on file Highest education level: Not on file Occupational History Not on file Tobacco Use Smoking status: Every Day Current packs/day: 1.00 Types: Cigarettes Smokeless tobacco: Never Substance and Sexual Activity Alcohol use: No Drug use: No Sexual activity: Not on file Other Topics Concern Service Not Asked Blood Transfusions Not Asked Caffeine Concern Not Asked Occupational Exposure Not Asked Hobby Hazards Not Asked Sleep Concern Not Asked Stress Concern Not Asked Weight Concern Not Asked Special Diet Not Asked Back Care Not Asked Exercise Not Asked Bike Helmet Not Asked Seat Belt Not Asked Domestic Violence No Social History Narrative Not on file Social Drivers of Health Financial Resource Strain: Not on file Food Insecurity: Not on file Transportation Needs: Not on file Physical Activity: Not on file Stress: Not on file Social Connections: Not on file Personal Safety: Not on file Housing Stability: Not on file ROS Review of Systems 8 systems reviewed with patient, negative unless specifically mentioned in history of present illness PHYSICAL EXAM Visit Vitals BP 140/85 Pulse 118 Temp 98.4 F (36.9 C) (Temporal) Wt 82.2 kg (181 lb 4.8 oz) LMP 01/21/2025 (Approximate) SpO2 97% No BMI 33.16 kg/m Physical Exam Vitals and nursing note reviewed. Constitutional: Appearance: Normal appearance. HENT: Head: Normocephalic. Right Ear: Tympanic membrane, ear canal and external ear normal. Left Ear: Tympanic membrane, ear canal and external ear normal. Nose: Congestion and rhinorrhea present. Rhinorrhea is clear. Mouth/Throat: Mouth: Mucous membranes are moist. Pharynx: Oropharynx is clear. Uvula midline. Posterior oropharyngeal erythema and postnasal drip present. Eyes: Conjunctiva/sclera: Conjunctivae normal. Cardiovascular: Rate and Rhythm: Normal rate and regular rhythm. Pulses: Normal pulses. Heart sounds: Normal heart sounds. Pulmonary: Effort: Pulmonary effort is normal. Breath sounds: Normal breath sounds. Abdominal: General: Bowel sounds are normal. Musculoskeletal: General: Normal range of motion. Cervical back: Normal range of motion and neck supple. Skin: General: Skin is warm and dry. Neurological: General: No focal deficit present. Mental Status: She is alert. RESULTS Recent Results (from the past 2 hours) SARS-COV-2 RAPID ANTIGEN Collection Time: 02/21/25 6:17 PM Specimen: NARES Result Value Ref Range SARS-COV-2 Rapid Antigen [id number] NOT DETECTED NARRATIVE -1 This test was performed using lateral flow immunoassay. This test does not differentiate between SARS-CoV and SARS-CoV2. POCT INFLUENZA, A B Collection Time: 02/21/25 6:32 PM Result Value Ref Range POCT Influenza A Negative Negative, Not Tested, Invalid, Not Detected POCT Influenza B Negative Negative, Not Tested, Invalid, Not Detected ASSESSMENT/PLAN 1. Cough, unspecified type 2. Acute upper respiratory infection Orders Placed This Encounter SARS-COV-2 RAPID ANTIGEN POCT INFLUENZA, A B guaiFENesin-dextromethorphan 30-600 MG Tab SR 12 HR COVID-19, influenza a and B negative. Symptoms likely viral etiology physical exam findings as noted above otherwise unremarkable. No acute distress noted respirations even and unlabored patient talk complete sentences without difficulty handle secretions without difficulty I did prescribe Mucinex D for symptomatic treatment. Patient declines offered Zofran due to subjective adverse side effects. supportive treatment reviewed patient verbalizes understanding and agrees with the plan Follow up if symptoms worsen or fails to improve over time. The risk and benefits of therapy were discussed with the patient. Alarm symptoms were discussed, along with reasons for contacting the office or going to the ER. Questions were answered for the patient. Follow up if symptoms worsen or fails to improve over time. If symptoms worsen patient was advised to follow up in our office, primary care provider or the Emergency Dept. Benefits, Risks, Contraindications, and Complications of recommended treatments were explained. The patient verbalized understanding and agrees to proceed with plan. RORY Welsh 02/21/2025 [1] Allergies Allergen Reactions Aripiprazole Other Reaction(s): Mental Status Change Suicidal ideations Quetiapine Dyspnea Other Reaction(s): Other: See Comments SOB AND HEART RACING SOB AND HEART RACING SOB AND HEART RACING Metoclopramide Hives and Nausea and Vomiting Other Reaction(s): Unknown Promethazine Other Reaction(s): GI Upset Sertraline Other Reaction(s): Mental Status Change Suicidal ideations Zofran [Ondansetron] Nausea and Vomiting [2] Past Medical History: Diagnosis Date Anxiety Depression DM (diabetes mellitus) Hypertension [3] Past Surgical History: Procedure Laterality Date REMOVAL BILIARY DUCT/GALLBLADDER CALCULI/DEBRIS PERCUTANEOUS W/ IMAGE 09/28/2014 DILATION AND CURETTAGE misscarriage documented in this encounter [facility] 02-19-2025 Instructions Ángela Norris APRN.CNP - 02/19/2025 11:12 AM EDT 1. Bacterial sinusitis (J32.9) 2. Nausea (R11.0) 3. Postnasal drip (R09.82) - Acute bacterial sinusitis with associated postnasal drip and nausea/vomiting for 2 days; exam notable for postnasal drainage, congestion, and swelling. - Start Augmentin; advised to take with food to minimize nausea. - Start saline nasal spray. - Educated that postnasal drainage is likely irritating the stomach and causing nausea; advised to maintain oral hydration. - Urine test negative. - Take the Augmentin antibiotic as prescribed (prescription has been sent to your pharmacy); be sure to eat something before you take each dose to help prevent nausea. - Use the saline nasal spray in each nostril as directed to relieve congestion. - Your urine test was negative. - Sip clear fluids regularly to stay hydrated and try eating small amounts if you feel nauseous. documented in this encounter [facility] 02-19-2025 Note [facility] 02-19-2025 History of Presen t illness Narrative [facility] Subjective Melissa Byrne is a 30 year old female. Patient presents with: Nausea & Vomiting: Nausea and vomiting and chest congestion x 1-2 weeks HPI The patient is a 30-year-old female presenting with nausea, cough, and congestion. Nausea and Emesis: - Onset 2 days ago. - Unable to eat due to nausea but can keep fluids down. - Denies fever. Cough and Congestion: - Cough productive of phlegm. - Nasal congestion. - Mild sinus pressure. - Denies sore throat and otalgia. - No medications taken for symptoms. Recent : - Delivered a baby in December. - Not on control; sexually active. - Last menstrual period began on January 21. - Missed scheduled tubal ligation due to illness. - Concerns about hormonal imbalance causing illness post-delivery. - Uncertain about current status; urine test performed today which is negative. Review of Systems Constitutional: (-) fever Ears/Nose/Mouth/Throat: (+) nasal congestion, (+) sinus pressure, (-) earache Respiratory: (+) productive cough Gastrointestinal: (+) nausea, (+) vomiting, (+) decreased appetite Objective BP 118/76 Pulse 105 Temp 37 C (98.6 F) (Tympanic) Resp 18 Wt 84 kg (185 lb 3 oz) LMP 01/28/2025 (Exact Date) SpO2 98% BMI 33.44 kg/m PAST MEDICAL HISTORY Diagnosis Date Asthma (HCC) Bipolar H/O macrosomia in infant in prior , currently ([facility]) 05/07/2024 Herpes simplex type 2 (HSV-2) infection affecting , antepartum, unspecified trimester ([facility]) 04/19/2024 Hyperlipidemia LGA (large for gestational age) ([facility]) 12/23/2016 12/23/16 - >95% Polyhydramnios ([facility]) 01/01/2017 Pre-existing type 2 diabetes mellitus in in first trimester ([facility]) 06/15/2024 First trimester Hgb A1c 10.5%, now follows with Dr. Guillermo Recurrent UTI Type 2 diabetes mellitus ([facility]) PAST SURGICAL HISTORY Procedure Laterality Date CHOLECYSTECTOMY D&C, DIAG AND/OR THERAPEUTIC 2018 ALLERGIES Aluminum-Magnesium Hydroxide, Aripiprazole, Quetiapine, Metoclopramide, Promethazine, Zofran [Ondansetron], and Zoloft [Sertraline] MEDICATIONS insulin NPH (HUMULIN N NPH INSULIN KWIKPEN) 100 unit/mL (3 mL) injection pen Inject 20 units at bed time insulin lispro (HUMALOG KWIKPEN INSULIN) 100 unit/mL Humalog 8 units prior to meals (+5 units with higher carb meals) acyclovir (ZOVIRAX) 400 mg tablet Take 1 tablet by mouth two times a day. Insulin Alg[place], Disposable, (BD ULTRAFINE III MINI PEN) 31 gauge x 3/16 4 TIMES/DAY lancets (Focus MediaUCH DELICA PLUS LANCET) 30 gauge Use with blood glucose test four times a day. Insulin Dep? Yes blood sugar diagnostic (ONETOUCH VERIO TEST STRIPS) test strip Use as instructed - TEST BLOOD SUGARS 4 TIMES DAILY Blood-Glucose Meter (ONETOUCH VERIO FLEX METER) Use to check blood glucose 4 times daily. busPIRone (BUSPAR) 15 mg tablet albuterol HFA (PROVENTIL HFA, VENTOLIN HFA) 90 mcg/actuation inhaler Inhale 2 Puffs as instructed every 6 hours as needed. FLUoxetine (PROZAC) 20 mg capsule Take 20 mg by mouth once daily. albuterol HFA (PROVENTIL HFA, VENTOLIN HFA) 90 mcg/actuation inhaler Inhale 2 Puffs as instructed. amoxicillin-clavulanate potassium (AUGMENTIN) 875-125 mg per tablet Take 1 tablet by mouth two times a day for 7 days. FAMILY HISTORY Problem Relation Age of Onset [...] Paternal Grandmother Cancer Paternal Grandfather SOCIAL HISTORY[1] Physical Exam Vitals and nursing note reviewed. Constitutional: General: She is not in acute distress. Appearance: Normal appearance. She is not ill-appearing. HENT: Right Ear: Tympanic membrane, ear canal and external ear normal. Left Ear: Tympanic membrane, ear canal and external ear normal. Nose: Nasal tenderness, mucosal edema and congestion present. Mouth/Throat: Mouth: Mucous membranes are moist. Pharynx: Oropharynx is clear. Uvula midline. Postnasal drip present. No pharyngeal swelling, oropharyngeal exudate, posterior oropharyngeal erythema or uvula swelling. Tonsils: No tonsillar exudate. Cardiovascular: Rate and Rhythm: Normal rate and regular rhythm. Heart sounds: Normal heart sounds. Pulmonary: Effort: Pulmonary effort is normal. No respiratory distress. Breath sounds: Normal breath sounds. No wheezing or rales. Lymphadenopathy: Cervical: No cervical adenopathy. Skin: General: Skin is warm and dry. Findings: No erythema or rash. Neurological: Mental Status: She is alert. { 1. Bacterial sinusitis (J32.9) 2. Nausea (R11.0) 3. Postnasal drip (R09.82) - Acute bacterial sinusitis with associated postnasal drip and nausea/vomiting for 2 days; exam notable for postnasal drainage, congestion, and swelling. - Start Augmentin; advised to take with food to minimize nausea. - Start saline nasal spray. - Educated that postnasal drainage is likely irritating the stomach and causing nausea; advised to maintain oral hydration. - Urine test negative. - Follow-up with your PCP in 3-5 days if symptoms have not improved or sooner if symptoms worsen - Discussed red flags and need for immediate medical evaluation if any occur. - Discussed supportive care treatment with fluids, rest and analgesia. - Discussed expected course of illness Ángela Norris APRN.WRAPPER HAND and Recording using [employer] software for draft documentation of the visit was discussed with the patient/authorized personal service representative; all questions welcomed and answered. Patient/authorized personal service representative agreed to proceed Disposition The patient was discharged. Procedures [1] Social History Tobacco Use Smoking status: Every Day Current packs/day: 0.50 Average packs/day: 0.5 packs/day for 14.0 years (7.0 ttl pk-yrs) Types: Cigarettes Smokeless tobacco: Never Vaping Use Vaping status: Never Used Substance Use Topics Alcohol use: No Drug use: No documented in this encounter [facility] 02-01-2025 Telephone encounter Note Rx sent KB [facility] 02-01-2025 Miscellaneous Notes Rx sent KB Per last office notes patient instructions are as below: NPH 20 units at bedtime Humalog 8 units prior to meals (+5 units with higher carb meals) New prescription need to be sent to the pharmacy [facility] and explained the situation. They said the pharmacy has to give them a call. Patient is calling asking to please send her insulin to [facility]. She has been without and has not eaten. Call her as soon as it is sent at [phone]. Patient has refills, but the problem is the insurance will not cover, because it is early to fill.Checked with her pharmacist. He advised patient call the insurance if they can override it. FYI: Dr. Byrne's office (patient's PCP) called to advise that patient is also asking their office to prescribe her insulin, they declined. Aquiles @ Dr. Byrne's office (no relation to patient) phone: [phone]. Spoke to patient. She stated she left her insulin in the car for days. She spoke to the pharmacy. They will fill her prescriptions. We will call her back with 's advise. Pt thinks both her Insulins (Humalog and NPH) might be bad batches She says this because within about 5-10 mins of taking them (more so the Humalog) she feels a bit nauseous and dawoodtayler Couldn't really describe it better than that for me Said her BS was not super high before her insulin but she might have been in the mid 200's, even up to about 280 A few times she checked her BS (around the time she didn't feel good) and readings were about 110-120 ....which she commented those are normal for other people but not necessarily for her ONSET this started occurring in the days AFTER her last visit with Dr. Guillermo on 01/20 She suspects she might not have refrigerated them appropriately ..? Pt is asking how long they can go without refrigeration before they go bad She also thinks they could be bad batches Also reports she was in the ED near her home on 01/29 Diagnosed with a sinus infection and URI Given Prescriptions for amoxicillin x 7 days and fluticasone nasal spray TODAY She is asking for new Prescriptions for BOTH her Humalog and NPH to see if that makes a difference (in case they were bad batches) Is that something Dr. Guillermo can do? Please use: [facility] [address] [place] [phone] [facility] [phone] [[phone]] she feels they can override things to get it done if needed.. Also: Pt wanted to know about recommended refrigeration time-frames for insulin Call back # [phone] vmx/mycharts both okay Thanks documented in this encounter [facility] 02-01-2025 Telephone encounter Note Per last office notes patient instructions are as below: NPH 20 units at bedtime Humalog 8 units prior to meals (+5 units with higher carb meals) New prescription need to be sent to the pharmacy [facility] 02-01-2025 Telephone encounter Note [employer] insurance and explained the situation. They said the pharmacy has to give them a call. [facility] 02-01-2025 Telephone encounter Note Patient is calling asking to please send her insulin to [facility] in [facility]. She has been without and has not eaten. Call her as soon as it is sent at [phone]. [facility] 02-01-2025 Telephone encounter Note Patient has refills, but the problem is the insurance will not cover, because it is early to fill.Checked with her pharmacist. He advised patient call the insurance if they can override it. [facility] 02-01-2025 Telephone encounter Note FYI: Dr. Byrne's office (patient's PCP) called to advise that patient is also asking their office to prescribe her insulin, they declined. Aquiles @ Dr. Chavez's office (no relation to patient) phone: [phone]. [facility] Work Phone: 02-01-2025 Telephone encounter Note Spoke to patient. She stated she left her insulin in the car for days. She spoke to the pharmacy. They will fill her prescriptions. We will call her back with 's advise. [facility] 02-01-2025 Telephone encounter Note Pt thinks both her Insulins (Humalog and NPH) might be bad batches She says this because within about 5-10 mins of taking them (more so the Humalog) she feels a bit nauseous and [place] Couldn't really describe it better than that for me Said her BS was not super high before her insulin but she might have been in the mid 200's, even up to about 280 A few times she checked her BS (around the time she didn't feel good) and readings were about 110-120 ....which she commented those are normal for other people but not necessarily for her ONSET this started occurring in the days AFTER her last visit with Dr. Guillermo on 01/20 She suspects she might not have refrigerated them appropriately ..? Pt is asking how long they can go without refrigeration before they go bad She also thinks they could be bad batches Also reports she was in the ED near her home on 01/29 Diagnosed with a sinus infection and URI Given Prescriptions for amoxicillin x 7 days and fluticasone nasal spray TODAY She is asking for new Prescriptions for BOTH her Humalog and NPH to see if that makes a difference (in case they were bad batches) Is that something Dr. Guillermo can do? Please use: [facility] [address] [place] [phone] [facility] [phone] [[phone]] she feels they can override things to get it done if needed.. Also: Pt wanted to know about recommended refrigeration time-frames for insulin Call back # [phone] vmx/mycharts both okay Thanks [facility] 01-31-2025 History of Presen t illness Narrative Subjective Patient ID: Melissa Drummond is a 30 y.o. female who presents for Diabetes (Lab Results/ Component Value Date / HGBA1C 7.1 (A) 01/20/2025 ), Exercise-induced asthma, and ER Follow-up (01/24/25 [place] ; chest pain; EKG done/01/29/25 [facility] [place]; acute sinusitis, URI). Diabetes She has type 2 diabetes mellitus. No MedicAlert identification noted. The initial diagnosis of diabetes was made 2009 years ago. Hypoglycemia symptoms include dizziness, headaches, mood changes, nervousness/anxiousness, pallor, sweats and tremors. Pertinent negatives for hypoglycemia include no confusion, hunger, seizures, sleepiness or speech difficulty. Associated symptoms include chest pain, fatigue, foot paresthesias, polydipsia, polyphagia, visual change and weight loss. Pertinent negatives for diabetes include no blurred vision, no foot ulcerations, no polyuria and no weakness. Hypoglycemia complications include nocturnal hypoglycemia. Pertinent negatives for hypoglycemia complications include no blackouts, no hospitalization, no required assistance and no required glucagon injection. Symptoms are worsening. Diabetic complications include retinopathy. Pertinent negatives for diabetic complications include no CVA, heart disease, nephropathy, peripheral neuropathy or PVD. Risk factors for coronary artery disease include dyslipidemia, family history, hypertension, obesity and tobacco exposure. Current diabetic treatment includes insulin injections. She is compliant with treatment most of the time. She is currently taking insulin pre-breakfast, pre-lunch, pre-dinner and at bedtime. Insulin injections are given by patient. Rotation sites for injection include the abdominal wall. Her weight is decreasing steadily. She is following a diabetic diet. When asked about meal planning, she reported none. She has not had a previous visit with a dietitian. She participates in exercise daily. She monitors blood glucose at home 5+ x per day. She monitors urine at home 1-2 x per day. Blood glucose monitoring compliance is inadequate. Her home blood glucose trend is fluctuating minimally. Her breakfast blood glucose is taken between 7-8 am. Her breakfast blood glucose range is generally 140-180 mg/dl. Her lunch blood glucose is taken between 12-1 pm. Her lunch blood glucose range is generally 140-180 mg/dl. Her dinner blood glucose is taken between 7-8 pm. Her dinner blood glucose range is generally 140-180 mg/dl. Her bedtime blood glucose is taken between 9-10 pm. Her bedtime blood glucose range is generally 140-180 mg/dl. Her overall blood glucose range is 180-200 mg/dl. She does not see a priming machine operator.Eye exam is current. No data recorded A1c = 7.1% January 2025 IMPRESSION: 29 year old F presenting for [...] and type 2 diabetes. This patient has MARK le saw retina last week- states DR cortes , has f/u in May. Was in ED 1 week ago with neg work up with neg troponin and d dimer Was given IVF Has phenergan States has not been eating 211 now 186 Sinusitis on amoxil and nasal spray flonase Still has some trouble breathing through nose Sneezing mild occ No itcthy eyes Still tightness in chest Asthma albuterol Smoking 1/2 ppd Светлана Rx This week will follow up them Has been to ED twice with neg work up Last BM was loose yesterday Has gone x1 in the last 24 hours Anxiety has been hyper focusing EKG sinus Tachycardia Review of Systems Constitutional: Positive for fatigue and weight loss. Eyes: Negative for blurred vision. Cardiovascular: Positive for chest pain. Endocrine: Positive for polydipsia and polyphagia. Negative for polyuria. Skin: Positive for pallor. Neurological: Positive for dizziness, tremors and headaches. Negative for seizures, speech difficulty and weakness. Psychiatric/Behavioral: Negative for confusion. The patient is nervous/anxious. Objective Visit Vitals BP 130/90 Pulse 96 Wt 84.6 kg (186 lb 6.4 oz) LMP 01/21/2025 (Exact Date) SpO2 98% BMI 34.09 kg/m OB Status Having periods Smoking Status Every Day BSA 1.92 m Physical Exam Vitals reviewed. Constitutional: Appearance: Normal [...] orders for this visit: Exercise-induced asthma - inhalational spacing device inhaler; Use as directed with inhalers Hyperglycemia due to diabetes mellitus (Multi) - HumuLIN N NPH Insulin KwikPen 100 unit/mL (3 mL) pen; Inject 20 Units under the skin once daily at bedtime. [facility] prescribes - insulin lispro 100 unit/mL injection; Inject 8 Units under the skin 3 times daily (morning, midday, late afternoon). With meals; plus 5 units for increased carbs Anxiety and depression We watched a video on proper spacer use Jamari Byrne MD 01/31/25 5:05 PM documented in this encounter [facility] Work Phone: 01-28-2025 Note [facility] 01-28-2025 History of Presen t illness Narrative [facility] Subjective Melissa Byrne is a 30 year old female. Patient presents with: Nausea & Vomiting: X 1 week, emesis 3-4 times a day, Feels like BP and HR are increased HPI Nausea and Emesis: - Onset since last . - Emesis occurring from [place] to late evening. - Able to keep water down but unable to eat normally. - Tried Tums with some relief. - Unable to fill Phenergan prescription due to insurance issues. - Last substantial food intake was a milkshake yesterday, which was partially vomited. Elevated Blood Pressure and Heart Rate: - Noticed elevated blood pressure and heart rate since last . - Heart rate recorded at 108 bpm, decreased to 90s with IV fluids. - Blood pressure recorded at 154 mmHg in the ER. - Denies having a home blood pressure monitor. - Reports feeling pain when blood pressure is high. Diabetes Mellitus: - Blood sugar levels described as out of whack. - Unable to take insulin due to inability to eat. - Monitoring blood sugar at home with two meters showing different readings. - Last insulin dose was yesterday. - Reports feeling pins and needles sensation, attributed to neuropathy. Status: - 7 weeks , delivered on December 07. - First menstrual cycle since delivery started last Friday. - Followed up with OBGYN 1-2 weeks ago. - Tubal ligation scheduled for today was canceled due to illness. - Not . - Experiencing headaches and sore throat. - Reports waking up shaking for the past two mornings. - Denies urinary symptoms. - Has a follow-up appointment with primary care next week. - History of miscarriage; current baby is her third. - has been staying with her mother due to her illness. - Expresses feelings of exhaustion and concern about her ability to care for her baby. - Has a counselor but missed the last appointment due to illness. - Reports feeling stressed and is currently smoking. Review of Systems Constitutional: (+) fatigue, (+) shaking chills, (+) cold intolerance Head: (+) headache Ears/Nose/Mouth/Throat: (+) sore throat Cardiovascular: (+) palpitations, (+) elevated blood pressure Gastrointestinal: (+) nausea, (+) vomiting, (+) abdominal cramping, (+) diarrhea, (+) poor oral intake Genitourinary: (-) dysuria Neurological: (+) paresthesias, (+) tremors, (+) insomnia Psychiatric: (+) anxiety, (+) stress, (+) fear of Objective BP 122/83 Pulse 102 Temp 36.6 C (97.8 F) Resp 20 Wt 87 kg (191 lb 12.8 oz) LMP 01/28/2025 (Exact Date) SpO2 98% No BMI 34.63 kg/m PAST MEDICAL HISTORY Diagnosis Date Asthma ([facility]) Bipolar H/O macrosomia in in prior , currently ([facility]) 05/07/2024 Herpes simplex type 2 (HSV-2) infection affecting , antepartum, unspecified trimester ([facility]) 04/19/2024 Hyperlipidemia LGA (large for gestational age) ([facility]) 12/23/2016 12/23/16 - >95% Polyhydramnios ([facility]) 01/01/2017 Pre-existing type 2 diabetes mellitus in in first trimester ([facility]) 06/15/2024 First trimester Hgb A1c 10.5%, now follows with Dr. Guillermo Recurrent UTI Type 2 diabetes mellitus ([facility]) PAST SURGICAL HISTORY Procedure Laterality Date CHOLECYSTECTOMY D&C, DIAG AND/OR THERAPEUTIC 2017 ALLERGIES Aluminum-Magnesium Hydroxide, Aripiprazole, Quetiapine, Metoclopramide, Promethazine, Zofran [Ondansetron], and Zoloft [Sertraline] MEDICATIONS acyclovir (ZOVIRAX) 400 mg tablet Take 1 tablet by mouth two times a day. Insulin [place], Disposable, (BD ULTRAFINE III MINI PEN) 31 gauge x 3/16 4 TIMES/DAY insulin NPH (HUMULIN N NPH INSULIN KWIKPEN) 100 unit/mL (3 mL) injection pen 90 units at bedtime lancets (SahareyTOUCH DELICA PLUS LANCET) 30 gauge Use with blood glucose test four times a day. Insulin Dep? Yes insulin lispro (HUMALOG KWIKPEN INSULIN) 100 unit/mL 23 -23 - 26 units prior to each meal respectively + scale (upto 100 units/day) blood sugar diagnostic (Focus MediaUCH VERIO TEST STRIPS) test strip Use as instructed - TEST BLOOD SUGARS 4 TIMES DAILY Blood-Glucose Meter (TAKO VERIO FLEX METER) Use to check blood glucose 4 times daily. busPIRone (BUSPAR) 15 mg tablet albuterol HFA (PROVENTIL HFA, VENTOLIN HFA) 90 mcg/actuation inhaler Inhale 2 Puffs as instructed every 6 hours as needed. FLUoxetine (PROZAC) 20 mg capsule Take 20 mg by mouth once daily. albuterol HFA (PROVENTIL HFA, VENTOLIN HFA) 90 mcg/actuation inhaler Inhale 2 Puffs as instructed. VIT 10-IRON FUM-FOLIC ORAL Take by mouth. FAMILY HISTORY Problem Relation Age of Onset [...] Paternal Grandmother Cancer Paternal Grandfather SOCIAL HISTORY[1] Physical Exam Constitutional: General: She is not in acute distress. Appearance: Normal appearance. She is normal weight. She is not ill-appearing or toxic-appearing. HENT: Head: Normocephalic and atraumatic. Right Ear: Tympanic membrane, ear canal and external ear normal. Left Ear: Tympanic membrane, ear canal and external ear normal. Nose: No congestion. Mouth/Throat: Mouth: Mucous membranes are moist. Pharynx: No oropharyngeal exudate or posterior oropharyngeal erythema. Eyes: Pupils: Pupils are equal, round, and reactive to light. Cardiovascular: Rate and Rhythm: Normal rate and regular rhythm. Pulses: Normal pulses. Heart sounds: Normal heart sounds. Pulmonary: Effort: Pulmonary effort is normal. Breath sounds: Normal breath sounds. Abdominal: General: Abdomen is flat. Bowel sounds are normal. There is no distension. Palpations: Abdomen is soft. There is no mass. Tenderness: There is no abdominal tenderness. There is no right CVA tenderness, left CVA tenderness, guarding or rebound. Hernia: No hernia is present. Musculoskeletal: Cervical back: No rigidity. Lymphadenopathy: Cervical: No cervical adenopathy. Neurological: Mental Status: She is alert. { 1. Gastritis with hemorrhage, unspecified chronicity, unspecified gastritis type (K29.71) 2. Nausea and vomiting, unspecified vomiting type (R11.2) 3. Gastro-esophageal reflux disease without esophagitis (K21.9) - Persistent nausea, vomiting, and diarrhea; unable to tolerate oral intake except water; recent ER visits for symptoms. - Recent onset of menses and hormonal changes may be contributing factors. - Advised use of Tums prior to eating to reduce gastric acidity. - Recommended bland diet (bread, rice, toast, banana) and gradual advancement as tolerated. - Encouraged adequate fluid intake. - Advised follow-up if symptoms do not improve by Friday. - ER if abdominal pain or worsening. 4. SHIRA (generalized anxiety disorder) (F41.1) - Recent period and current stressors may be exacerbating anxiety symptoms. - Encouraged continuation of counseling and mental health support. - Patient does have follow up appointment scheduled, denies thoughts of harm to herself, her baby, or others at this time. and Recording using [employer] software for draft documentation of the visit was discussed with the patient/authorized personal service representative; all questions welcomed and answered. Patient/authorized personal service representative agreed to proceed Disposition The patient was discharged. Patient well appearing nontoxic in no acute distress 30 year old female with constant vomiting, denies abdominal pain, diarrhea, or pelvic pain. No concern for acute abdomen, abdominal exam within normal limits. Concerns for reflex vomiting in am with sore throat. Patient declines PPI, will be okay with trying Tums. Blood sugar 170, tried to eat a milkshake yesterday. Discussed starting RICE diet as tolerated and continuing to monitor blood sugar. Patient was in ED two days ago, cardiac workup negative, in addition to UTI/pelvic connecters. My concern os for post she has seen OB for follow up was discharged and not follow up unless as needed. Missed her counseling appointment. She does have a follow up appointment with her PCP on Friday. Declines self harm, or harm of her baby or others. She was set up with social work before delivery, her mom and partner is currently helping her with the baby, she is not . ER if worsening. Discussed the importance, of following up with PCP and counselor, patient verbalized understanding and agreeable to plan. [1] Social History Tobacco Use Smoking status: Every Day Current packs/day: 0.50 Average packs/day: 0.5 packs/day for 14.0 years (7.0 ttl pk-yrs) Types: Cigarettes Smokeless tobacco: Never Vaping Use Vaping status: Never Used Substance Use Topics Alcohol use: No Drug use: No documented in this encounter [facility] 2025 Telephone encounter Note Noted, thank you [facility] 2025 Miscellaneous Notes Noted, thank you Patient called [facility] registration to cancel her procedure scheduled on 01/28/25 due to illness. Patient will contact office when ready to reschedule. documented in this encounter [facility] 2025 Telephone encounter Note Patient called [facility] registration to cancel her procedure scheduled on 01/28/25 due to illness. Patient will contact office when ready to reschedule. [facility] 01-24-2025 Physician Emergency department Note Chest pain. This 29-year-old white female presents to the ED with complaint of chest pain symptoms that began this morning at 11 AM she states that she was driving when the symptoms started she states that it is located in the substernal area without radiation she describes as a tightness that is 6-7 out of 10. Patient states that the symptoms are intermittent and improve every 5 to 10 minutes and then get worse. She states that she has been ill recently with nausea and vomiting and was seen at [place] [facility] twice because of the symptoms. Patient admits to smoking 1/2 pack/day. States her father had a ID age 50. She admits to history of bipolar affective disorder, asthma, type 2 diabetes, depression, anxiety. Patient denies ever having a cardiac stress test or heart cath. 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 Constitutional: General: She is awake. Appearance: Normal appearance. She is overweight. HENT: Head: Normocephalic and atraumatic. Jaw: There is normal jaw occlusion. Right Ear: Hearing and external ear normal. Left Ear: Hearing and external ear normal. Nose: Nose normal. No congestion or rhinorrhea. Mouth/Throat: Lips: [place]. Mouth: Mucous membranes are moist. Pharynx: Oropharynx is clear. Uvula midline. No oropharyngeal exudate or posterior oropharyngeal erythema. Eyes: General: Lids are normal. Vision grossly intact. Right eye: No discharge. Left eye: No discharge. Extraocular Movements: Extraocular movements intact. Conjunctiva/sclera: Conjunctivae normal. Pupils: Pupils are equal, round, and reactive to light. Cardiovascular: Rate and Rhythm: Regular rhythm. Tachycardia present. Pulses: Normal pulses. Heart sounds: Normal heart sounds. No murmur heard. No friction rub. No gallop. Pulmonary: Effort: Pulmonary effort is normal. No respiratory distress. Breath sounds: Normal breath sounds. No stridor. No wheezing, rhonchi or rales. Chest: Chest wall: No tenderness. Abdominal: General: Abdomen is protuberant. Bowel sounds are normal. There is no distension. Palpations: Abdomen is soft. There is no mass. Tenderness: There is no abdominal tenderness. There is no guarding or rebound. Hernia: No hernia is present. Comments: Patient has a benign abdominal exam. Musculoskeletal: General: No swelling, tenderness, deformity or signs of injury. Normal range of motion. Cervical back: Full passive range of motion without pain, normal range of motion and neck supple. Right lower leg: Normal. No edema. Left lower leg: Normal. No edema. Skin: General: Skin is warm and dry. Capillary Refill: Capillary refill takes less than 2 seconds. Coloration: Skin is not jaundiced or pale. Findings: No bruising, erythema, lesion or rash. Neurological: General: No focal deficit present. Mental Status: She is alert and oriented to person, place, and time. GCS: GCS eye subscore is 4. GCS verbal subscore is 5. GCS motor subscore is 6. Cranial Nerves: Cranial nerves 2-12 are intact. No cranial nerve deficit. Sensory: Sensation is intact. No sensory deficit. Motor: Motor function is intact. No weakness. Coordination: Coordination is intact. Coordination normal. Gait: Gait is intact. Deep Tendon Reflexes: Reflexes normal. Psychiatric: Attention and Perception: Attention and perception normal. Mood and Affect: Mood and affect normal. Speech: Speech normal. Behavior: Behavior normal. Behavior is cooperative. Thought Content: Thought content normal. Judgment: Judgment normal. Labs Reviewed COMPREHENSIVE METABOLIC PANEL - Abnormal Result Value Glucose 199 (*) Sodium 137 Potassium 3.5 Chloride 105 Bicarbonate 23 Anion Gap 13 Urea Nitrogen 6 Creatinine 0.46 (*) eGFR >90 Calcium 8.8 Albumin 4.2 Alkaline Phosphatase 81 Total Protein 7.3 AST 19 Bilirubin, Total 0.7 ALT 39 URINALYSIS WITH REFLEX CULTURE AND MICROSCOPIC - Abnormal Color, Urine Colorless (*) Appearance, Urine Clear Specific [place], Urine 1.004 (*) pH, Urine 6.5 Protein, Urine NEGATIVE Glucose, Urine Normal Blood, Urine OVER (3+) (*) Ketones, Urine 10 (1+) (*) Bilirubin, Urine NEGATIVE Urobilinogen, Urine Normal Nitrite, Urine NEGATIVE Leukocyte Esterase, Urine NEGATIVE Narrative: OVER is reported when the result is greater than the clinically reportable range. URINALYSIS MICROSCOPIC WITH REFLEX CULTURE - Abnormal WBC, Urine 1-5 RBC, Urine >20 (*) Squamous Epithelial Cells, Urine 1-9 (SPARSE) Bacteria, Urine 1+ (*) MAGNESIUM - Normal Magnesium 1.93 HUMAN CHORIONIC GONADOTROPIN, SERUM QUANTITATIVE - Normal HCG, Beta-Quantitative <2 Narrative: Total HCG measurement is performed using the [employer] Access Immunoassay which detects intact HCG and free beta HCG subunit. This test is not indicated for use as a tumor marker. HCG testing is performed using a different test methodology at [facility] than other [facility]. Direct result comparison should only be made within the same method. D-DIMER, VTE EXCLUSION - Normal D-Dimer, Quantitative VTE Exclusion 456 Narrative: The VTE Exclusion D-Dimer assay is reported in ng/mL Fibrinogen Equivalent Units (FEU). Per cushion maker hand's instructions for use, a value of less than 500 ng/mL (FEU) may help to exclude DVT or PE in outpatients when the assay is used with a clinical pretest probability assessment.([facility] must utilize and document eCalc 'Wells Score Deep Vein Thrombosis Risk' for DVT exclusion only. Emergency Department should utilize Guidelines for Emergency Department Use of the VTE Exclusion D-Dimer and Clinical Pretest probability assessment model for DVT or PE exclusion.) SERIAL TROPONIN-INITIAL - Normal Troponin I, High Sensitivity <3 Narrative: Less than 99th percentile of normal range cutoff- Female and children under 18 years old <14 ng/L; Male <21 ng/L: Negative Repeat testing should be performed if clinically indicated. Female and children under 18 years old 14-50 ng/L; Male 21-50 ng/L: Consistent with possible cardiac damage and possible increased clinical risk. Serial measurements may help to assess extent of myocardial damage. >50 ng/L: Consistent with cardiac damage, increased clinical risk and myocardial infarction. Serial measurements may help assess extent of myocardial damage. NOTE: Children less than 1 year old may have higher baseline troponin levels and results should be interpreted in conjunction with the overall clinical context. NOTE: Troponin I testing is performed using a different testing methodology at [facility] than at other [facility]. Direct result comparisons should only be made within the same method. SERIAL TROPONIN, 1 HOUR - Normal Troponin I, High Sensitivity <3 Narrative: Less than 99th percentile of normal range cutoff- Female and children under 18 years old <14 ng/L; Male <21 ng/L: Negative Repeat testing should be performed if clinically indicated. Female and children under 18 years old 14-50 ng/L; Male 21-50 ng/L: Consistent with possible cardiac damage and possible increased clinical risk. Serial measurements may help to assess extent of myocardial damage. >50 ng/L: Consistent with cardiac damage, increased clinical risk and myocardial infarction. Serial measurements may help assess extent of myocardial damage. NOTE: Children less than 1 year old may have higher baseline troponin levels and results should be interpreted in conjunction with the overall clinical context. NOTE: Troponin I testing is performed using a different testing methodology at [facility] than at other [facility]. Direct result comparisons should only be made within the same method. TROPONIN SERIES- (INITIAL, 1 HR) Narrative: The following orders were created for panel order Troponin I Series, High Sensitivity (0, 1 HR). Procedure Abnormality Status --------- ------ Troponin I, High Sensiti...[[id number]] Normal Final result Troponin, High Sensitivi...[[id number]] Normal Final result Please view results for these tests on the individual orders. CBC WITH AUTO DIFFERENTIAL WBC 8.4 nRBC 0.0 RBC 4.47 Hemoglobin 12.6 Hematocrit 37.1 MCV 83 MCH 28.2 MCHC 34.0 RDW 12.6 Platelets 326 Neutrophils % 70.8 Immature Granulocytes %, Automated 0.4 Lymphocytes % 21.4 Monocytes % 5.7 Eosinophils % 1.1 Basophils % 0.6 Neutrophils Absolute 5.95 Immature Granulocytes Absolute, Automated 0.03 Lymphocytes Absolute 1.80 Monocytes Absolute 0.48 Eosinophils Absolute 0.09 Basophils Absolute 0.05 URINALYSIS WITH REFLEX CULTURE AND MICROSCOPIC Narrative: The following orders were created for panel order Urinalysis with Reflex Culture and Microscopic. Procedure Abnormality Status --------- ------ Urinalysis with Reflex C...[[id number]] Abnormal Final result Extra Urine Bolton Tube[[id number]] In process Please view results for these tests on the individual orders. EXTRA URINE BOLTON TUBE XR chest 1 view Final Result No acute pathologic findings are identified. There is no interval change when compared to the previous examination. MACRO: none Signed by: Milly Juarez 01/24/2025 2:56 PM Dictation workstation: [id number] Procedures Medical Decision Making Patient was seen and evaluated in the ED due to complaint of chest pain symptoms that began around 11 AM when she was driving her vehicle she states that the pain is pressure-like and located in the substernal area. Initial EKG revealed no ischemic changes she was ordered cardiac workup with lab work including D-dimer troponin delta troponin, urinalysis and chest x-ray. CBC was unremarkable D-dimer normal at 456 urinalysis was contaminated without overt evidence of infection. test was negative. Glucose was elevated 199. Creatinine was low at 0.46 magnesium level was normal at 1.93 troponin delta troponin both negative and chest x-ray revealed no acute disease process. After getting the delta troponin back I did have a detailed discussion with the patient concerning her lab and x-ray results prior to discharging her home she was referred back to her primary care doctor for follow-up. Heart score was 1. Amount and/or Complexity of Data Reviewed ECG/medicine tests: independent interpretation performed. Details: EKG was interpreted by myself at 2:11 PM reveals sinus tachycardia with nonspecific ST-T wave changes. The heart rate is 102 bpm. The NE interval is 142 ms. The QRS duration is 84 ms. The QTc is 492 ms. [place] is 60 degrees. Diagnoses as of 01/24/251710 Acute chest pain Ty Shannon DO 01/24/251710 [facility] Work Phone: 01-24-2025 Emergency department Note Chest pain. This 29-year-old white female presents to the ED with complaint of chest pain symptoms that began this morning at 11 AM she states that she was driving when the symptoms started she states that it is located in the substernal area without radiation she describes as a tightness that is 6-7 out of 10. Patient states that the symptoms are intermittent and improve every 5 to 10 minutes and then get worse. She states that she has been ill recently with nausea and vomiting and was seen at [place] ER twice because of the symptoms. Patient admits to smoking 1/2 pack/day. States her father had a ID age 50. She admits to history of bipolar affective disorder, asthma, type 2 diabetes, depression, anxiety. Patient denies ever having a cardiac stress test or heart cath. 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 Constitutional: General: She is awake. Appearance: Normal appearance. She is overweight. HENT: Head: Normocephalic and atraumatic. Jaw: There is normal jaw occlusion. Right Ear: Hearing and external ear normal. Left Ear: Hearing and external ear normal. Nose: Nose normal. No congestion or rhinorrhea. Mouth/Throat: Lips: [place]. Mouth: Mucous membranes are moist. Pharynx: Oropharynx is clear. Uvula midline. No oropharyngeal exudate or posterior oropharyngeal erythema. Eyes: General: Lids are normal. Vision grossly intact. Right eye: No discharge. Left eye: No discharge. Extraocular Movements: Extraocular movements intact. Conjunctiva/sclera: Conjunctivae normal. Pupils: Pupils are equal, round, and reactive to light. Cardiovascular: Rate and Rhythm: Regular rhythm. Tachycardia present. Pulses: Normal pulses. Heart sounds: Normal heart sounds. No murmur heard. No friction rub. No gallop. Pulmonary: Effort: Pulmonary effort is normal. No respiratory distress. Breath sounds: Normal breath sounds. No stridor. No wheezing, rhonchi or rales. Chest: Chest wall: No tenderness. Abdominal: General: Abdomen is protuberant. Bowel sounds are normal. There is no distension. Palpations: Abdomen is soft. There is no mass. Tenderness: There is no abdominal tenderness. There is no guarding or rebound. Hernia: No hernia is present. Comments: Patient has a benign abdominal exam. Musculoskeletal: General: No swelling, tenderness, deformity or signs of injury. Normal range of motion. Cervical back: Full passive range of motion without pain, normal range of motion and neck supple. Right lower leg: Normal. No edema. Left lower leg: Normal. No edema. Skin: General: Skin is warm and dry. Capillary Refill: Capillary refill takes less than 2 seconds. Coloration: Skin is not jaundiced or pale. Findings: No bruising, erythema, lesion or rash. Neurological: General: No focal deficit present. Mental Status: She is alert and oriented to person, place, and time. GCS: GCS eye subscore is 4. GCS verbal subscore is 5. GCS motor subscore is 6. Cranial Nerves: Cranial nerves 2-12 are intact. No cranial nerve deficit. Sensory: Sensation is intact. No sensory deficit. Motor: Motor function is intact. No weakness. Coordination: Coordination is intact. Coordination normal. Gait: Gait is intact. Deep Tendon Reflexes: Reflexes normal. Psychiatric: Attention and Perception: Attention and perception normal. Mood and Affect: Mood and affect normal. Speech: Speech normal. Behavior: Behavior normal. Behavior is cooperative. Thought Content: Thought content normal. Judgment: Judgment normal. Labs Reviewed COMPREHENSIVE METABOLIC PANEL - Abnormal Result Value Glucose 199 (*) Sodium 137 Potassium 3.5 Chloride 105 Bicarbonate 23 Anion Gap 13 Urea Nitrogen 6 Creatinine 0.46 (*) eGFR >90 Calcium 8.8 Albumin 4.2 Alkaline Phosphatase 81 Total Protein 7.3 AST 19 Bilirubin, Total 0.7 ALT 39 URINALYSIS WITH REFLEX CULTURE AND MICROSCOPIC - Abnormal Color, Urine Colorless (*) Appearance, Urine Clear Specific [place], Urine 1.004 (*) pH, Urine 6.5 Protein, Urine NEGATIVE Glucose, Urine Normal Blood, Urine OVER (3+) (*) Ketones, Urine 10 (1+) (*) Bilirubin, Urine NEGATIVE Urobilinogen, Urine Normal Nitrite, Urine NEGATIVE Leukocyte Esterase, Urine NEGATIVE Narrative: OVER is reported when the result is greater than the clinically reportable range. URINALYSIS MICROSCOPIC WITH REFLEX CULTURE - Abnormal WBC, Urine 1-5 RBC, Urine >20 (*) Squamous Epithelial Cells, Urine 1-9 (SPARSE) Bacteria, Urine 1+ (*) MAGNESIUM - Normal Magnesium 1.93 HUMAN CHORIONIC GONADOTROPIN, SERUM QUANTITATIVE - Normal HCG, Beta-Quantitative <2 Narrative: Total HCG measurement is performed using the [employer] Access Immunoassay which detects intact HCG and free beta HCG subunit. This test is not indicated for use as a tumor marker. HCG testing is performed using a different test methodology at [facility] than other [facility]. Direct result comparison should only be made within the same method. D-DIMER, VTE EXCLUSION - Normal D-Dimer, Quantitative VTE Exclusion 456 Narrative: The VTE Exclusion D-Dimer assay is reported in ng/mL Fibrinogen Equivalent Units (FEU). Per cushion maker hand's instructions for use, a value of less than 500 ng/mL (FEU) may help to exclude DVT or PE in outpatients when the assay is used with a clinical pretest probability assessment.([facility] must utilize and document eCalc 'Wells Score Deep Vein Thrombosis Risk' for DVT exclusion only. Emergency Department should utilize Guidelines for Emergency Department Use of the VTE Exclusion D-Dimer and Clinical Pretest probability assessment model for DVT or PE exclusion.) SERIAL TROPONIN-INITIAL - Normal Troponin I, High Sensitivity <3 Narrative: Less than 99th percentile of normal range cutoff- Female and children under 18 years old <14 ng/L; Male <21 ng/L: Negative Repeat testing should be performed if clinically indicated. Female and children under 18 years old 14-50 ng/L; Male 21-50 ng/L: Consistent with possible cardiac damage and possible increased clinical risk. Serial measurements may help to assess extent of myocardial damage. >50 ng/L: Consistent with cardiac damage, increased clinical risk and myocardial infarction. Serial measurements may help assess extent of myocardial damage. NOTE: Children less than 1 year old may have higher baseline troponin levels and results should be interpreted in conjunction with the overall clinical context. NOTE: Troponin I testing is performed using a different testing methodology at [facility] than at other [facility]. Direct result comparisons should only be made within the same method. SERIAL TROPONIN, 1 HOUR - Normal Troponin I, High Sensitivity <3 Narrative: Less than 99th percentile of normal range cutoff- Female and children under 18 years old <14 ng/L; Male <21 ng/L: Negative Repeat testing should be performed if clinically indicated. Female and children under 18 years old 14-50 ng/L; Male 21-50 ng/L: Consistent with possible cardiac damage and possible increased clinical risk. Serial measurements may help to assess extent of myocardial damage. >50 ng/L: Consistent with cardiac damage, increased clinical risk and myocardial infarction. Serial measurements may help assess extent of myocardial damage. NOTE: Children less than 1 year old may have higher baseline troponin levels and results should be interpreted in conjunction with the overall clinical context. NOTE: Troponin I testing is performed using a different testing methodology at [facility] than at other [facility]. Direct result comparisons should only be made within the same method. TROPONIN SERIES- (INITIAL, 1 HR) Narrative: The following orders were created for panel order Troponin I Series, High Sensitivity (0, 1 HR). Procedure Abnormality Status --------- ------ Troponin I, High Sensiti...[[id number]] Normal Final result Troponin, High Sensitivi...[[id number]] Normal Final result Please view results for these tests on the individual orders. CBC WITH AUTO DIFFERENTIAL WBC 8.4 nRBC 0.0 RBC 4.47 Hemoglobin 12.6 Hematocrit 37.1 MCV 83 MCH 28.2 MCHC 34.0 RDW 12.6 Platelets 326 Neutrophils % 70.8 Immature Granulocytes %, Automated 0.4 Lymphocytes % 21.4 Monocytes % 5.7 Eosinophils % 1.1 Basophils % 0.6 Neutrophils Absolute 5.95 Immature Granulocytes Absolute, Automated 0.03 Lymphocytes Absolute 1.80 Monocytes Absolute 0.48 Eosinophils Absolute 0.09 Basophils Absolute 0.05 URINALYSIS WITH REFLEX CULTURE AND MICROSCOPIC Narrative: The following orders were created for panel order Urinalysis with Reflex Culture and Microscopic. Procedure Abnormality Status --------- ------ Urinalysis with Reflex C...[[id number]] Abnormal Final result Extra Urine Bolton Tube[[id number]] In process Please view results for these tests on the individual orders. EXTRA URINE BOLTON TUBE XR chest 1 view Final Result No acute pathologic findings are identified. There is no interval change when compared to the previous examination. MACRO: none Signed by: Milly Juarez 01/24/2025 2:56 PM Dictation workstation: [id number] Procedures Medical Decision Making Patient was seen and evaluated in the ED due to complaint of chest pain symptoms that began around 11 AM when she was driving her vehicle she states that the pain is pressure-like and located in the substernal area. Initial EKG revealed no ischemic changes she was ordered cardiac workup with lab work including D-dimer troponin delta troponin, urinalysis and chest x-ray. CBC was unremarkable D-dimer normal at 456 urinalysis was contaminated without overt evidence of infection. test was negative. Glucose was elevated 199. Creatinine was low at 0.46 magnesium level was normal at 1.93 troponin delta troponin both negative and chest x-ray revealed no acute disease process. After getting the delta troponin back I did have a detailed discussion with the patient concerning her lab and x-ray results prior to discharging her home she was referred back to her primary care doctor for follow-up. Heart score was 1. Amount and/or Complexity of Data Reviewed ECG/medicine tests: independent interpretation performed. Details: EKG was interpreted by myself at 2:11 PM reveals sinus tachycardia with nonspecific ST-T wave changes. The heart rate is 102 bpm. The NE interval is 142 ms. The QRS duration is 84 ms. The QTc is 492 ms. [place] is 60 degrees. Diagnoses as of 01/24/251710 Acute chest pain Ty Shannon DO 01/24/251710 documented in this encounter [facility] Work Phone: 01-23-2025 Hospital Discharg e instructions Additional Instructions Plenty of fluids and rest. Zofran as needed for nausea you may swallow it or let dissolve on your tongue. Watch your blood sugars closely tonight they were elevated at 229. Follow-up with your doctor as needed. [facility] Work Phone: 01-20-2025 History of Presen t illness Narrative [...] during that - had macrosomia, delivered in [place]. She was initially diagnosed with type 2 [...] weight. PAST MEDICAL HISTORY Diagnosis Date Asthma ([facility]) Bipolar H/O macrosomia in infant in prior , currently ([facility]) 05/07/2024 Herpes simplex type 2 (HSV-2) infection affecting , antepartum, unspecified trimester ([facility]) 04/19/2024 Hyperlipidemia LGA (large for gestational age) infant ([facility]) 12/23/2016 12/23/16 - >95% Polyhydramnios ([facility]) 01/01/2017 Pre-existing type 2 diabetes mellitus in in first trimester ([facility]) 06/15/2024 First trimester Hgb A1c 10.5%, now follows with Dr. Guillermo Recurrent UTI Type 2 diabetes mellitus ([facility]) PAST SURGICAL HISTORY Procedure Laterality [...] times a day. 60 tablet 3 Insulin [place], Disposable, (BD ULTRAFINE III MINI PEN) 31 gauge x 3/16 4 TIMES/DAY 200 each 3 insulin NPH (HUMULIN N NPH INSULIN KWIKPEN) 100 unit/mL (3 mL) injection pen 90 units at bedtime 45 mL 11 lancets (Focus MediaUCH DELICA PLUS LANCET) 30 gauge Use with blood glucose test four times a day. Insulin Dep? Yes 100 Each 11 insulin lispro (HUMALOG KWIKPEN INSULIN) 100 unit/mL 23 -23 - 26 units prior to each meal respectively + scale (upto 100 units/day) 45 mL 11 blood sugar diagnostic (Focus MediaUCH VERIO TEST STRIPS) test strip Use as instructed - TEST BLOOD SUGARS 4 TIMES DAILY 150 Each 11 Blood-Glucose Meter (TAKO VERIO FLEX METER) Use to check blood [...] which included preparing to see the patient, [id number] patient care, completing clinical documentation, obtaining and/or [...] Drug use: No documented in this encounter [facility] 01-20-2025 Note [facility] 01-20-2025 Instructions Kelsy Guillermo DO - [...] blood work prior documented in this encounter [facility] 01-19-2025 History and physical note Pre-Op History and Physical HPI: The patient is a 29 year old female presenting for pre-operative visit. She is scheduled for laparoscopic bilateral salpingectomy , for desires sterilization on 01/28/25. Procedure discussed along with risks, benefits and complications. Other alternatives discussed for management. Consent form signed? Yes. PAST MEDICAL HISTORY Diagnosis Date Asthma ([facility]) Bipolar H/O macrosomia in infant in prior , currently ([facility]) 05/07/2024 Herpes simplex type 2 (HSV-2) infection affecting , antepartum, unspecified trimester ([facility]) 04/19/2024 Hyperlipidemia LGA (large for gestational age) infant ([facility]) 12/23/2016 12/23/16 - >95% Polyhydramnios ([facility]) 01/01/2017 Pre-existing type 2 diabetes mellitus in in first trimester ([facility]) 06/15/2024 First trimester Hgb A1c 10.5%, now follows with Dr. Guillermo Recurrent UTI Type 2 diabetes mellitus ([facility]) PAST SURGICAL HISTORY Procedure Laterality [...] times a day. 60 tablet 3 Insulin [place], Disposable, (BD ULTRAFINE III MINI PEN) 31 gauge x 3/16 4 TIMES/DAY 200 each 3 lancets (SahareyTOUCH DELICA PLUS LANCET) 30 gauge Use with [...] Topics Alcohol use: No Drug use: No [facility] 01-19-2025 History and physical note Pre-Op History and Physical HPI: The patient is a 29 year old female presenting for pre-operative visit. She is scheduled for laparoscopic bilateral salpingectomy , for desires sterilization on 01/28/25. Procedure discussed along with risks, benefits and complications. Other alternatives discussed for management. Consent form signed? Yes. PAST MEDICAL HISTORY Diagnosis Date Asthma ([facility]) Bipolar H/O macrosomia in in prior , currently ([facility]) 05/07/2024 Herpes simplex type 2 (HSV-2) infection affecting , antepartum, unspecified trimester ([facility]) 04/19/2024 Hyperlipidemia LGA (large for gestational age) ([facility]) 12/23/2016 12/23/16 - >95% Polyhydramnios ([facility]) 01/01/2017 Pre-existing type 2 diabetes mellitus in in first trimester ([facility]) 06/15/2024 First trimester Hgb A1c 10.5%, now follows with Dr. Guillermo Recurrent UTI Type 2 diabetes mellitus ([facility]) PAST SURGICAL HISTORY Procedure Laterality [...] times a day. 60 tablet 3 Insulin [place], Disposable, (BD ULTRAFINE III MINI PEN) 31 [...] Drug use: No documented in this encounter [facility] 01-19-2025 Note [facility] 01-19-2025 History of Presen t illness Narrative VISIT Melissa Byrne is a 29 year old year old here for visit. Delivery Summary: 12/07/24 F- Nallely ROS/ Recovery: Feeding: Bottle feeding problems: None Menses since delivery: none Menstrual pattern prior to : Regular periods [place] since delivery: Resumed Depression: denies symptoms of [...] harming myself has occurred to me. Never [place] Depression Scale Total 16 Feeling nervous, anxious, [...] N/A PAST MEDICAL HISTORY Diagnosis Date Asthma ([facility]) Bipolar H/O macrosomia in infant in prior , currently ([facility]) 05/07/2024 Herpes simplex type 2 (HSV-2) infection affecting , antepartum, unspecified trimester ([facility]) 04/19/2024 Hyperlipidemia LGA (large for gestational age) ([facility]) 12/23/2016 12/23/16 - >95% Polyhydramnios ([facility]) 01/01/2017 Pre-existing type 2 diabetes mellitus in in first trimester ([facility]) 06/15/2024 First trimester Hgb A1c [...] discussed with the Patient or Patient's Authorized Franchise Business Consultant. As applicable, any other physician, advance practice provider, medical student, or other health professional student that will be observing or involved in the sensitive examination for educational or training purposes was discussed with the Patient or Authorized Franchise Business Consultant. The Patient or Authorized Franchise Business Consultant has agreed to proceed with the sensitive [...] external genitalia normal, normal Bartholin's glands, urethra, [place]'s glands, no vulvar lesions, no cervical lesions, [...] Whit Patel MD documented in this encounter [facility] 12-21-2024 Note [facility] 12-21-2024 History of Presen t illness [...] in parent's room, does not feel rested [place] since delivery: Not resumed Emotional support: Yes [...] William Gramajo MD documented in this encounter [facility] 12-16-2024 History and physi vicenta note [facility] 12-16-2024 Telephone encount er Note Patient notified and instructions given to go to L&D for evaluation. [facility] 12-16-2024 Miscellaneous Notes Formattin g of this [...] No openings tomorrow. documented in this encounter [facility] 12-16-2024 Telephone encount er Note to L&D for eval for preeclampsia. Piper Julian MD [facility] 12-16-2024 Telephone encount er Note Patient had [...] d/t headache & swelling. No openings tomorrow. [facility] 12-15-2024 Telephone encount er Note Reviewed BG data- responded as follows: Hector Farleyi- I hope all is well with you [...] need anything in the interim- thanks! KB [facility] 12-15-2024 Miscellaneous Notes Formattin g of this [...] interim- thanks! KB documented in this encounter [facility] 12-09-2024 Progress note Note Date/Time December 09, 2024 8:46a [facility] Medical Records Department [address] [place] [address] Progress Note - OBGYN 12/09/24 0845 MR#: [id number] Acct: [id number] Name: MELISSA BYRNE Rep #:[id number] : 1995 29 From: Krys uKlkarni MD PCP: Dr. Jamari Byrne MD Status:ADM IN Location: AM771-3 Subjective Subjective Doing well. Ambulating and voiding [...] Cosigner Signature (if applicable): CC: ~ Signed [facility] Work Phone: 1(132) 189-518407-03-2025 [facility] Medical Records Department [address] [place] [address] Discharge Summary 12/09/24 0846 MR#: [id number] Acct: [id number] Name: MELISSA BYRNE Rep #: [id number] : 1995 29 From: Krys Kulkarni MD PCP: Dr. Jamari Byrne MD Status:DIS IN [facility] Providers Date of Admission: 12/07/24 Date of [...] 1-2 and 6 weeks or as needed. [phone] Meaningful Use Info Meaningful Use Meaningful Use [...] Jamari Byrne MD; Dr. Krys Kulkarni MD [facility] Progress note [facility] Medical Records Department [address] [place] [address] Progress Note - OBGYN 12/09/24 0845 MR#: [id number] Acct: [id number] Name: MELISSA BYRNE Rep #:[id number] : 1995 29 From: Krys Kulkarni MD PCP: Dr. Jamari Byrne MD Status:ADM IN Location: [place] [address] Subjective Subjective Doing well. Ambulating and voiding [...] Cosigner Signature (if applicable): CC: ~ Signed [facility]07-02-2025 Telephone encounter Note* Telephone Encounter - Piper Julian MD - 12/08/2024 6:26 PM EDT nevermind, patient had plan in a VM Enterprisest message, I didn't see it initially. Thanks. RLR [facility]07-02-2025 Miscellaneous Notes* Telephone Encounter - Piper Julian MD - 12/08/2024 6:26 PM EDT nevermind, patient had plan in a VM Enterprisest message, I didn't see it initially. Thanks. RLR * Telephone Encounter - Piper Julian MD - 12/08/2024 5:55 PM EDT Hoda delivered at [facility] on 12/07/24. We have her on insulin and would like to know if we should keep her on half her dose until follow up in January? Thanks! Piper Julian MD [facility] Telephone encounter Note * Telephone Encounter - iPper Julian MD - 12/08/2024 5:55 PM EDT Hoda delivered at [facility] on 12/07/24. We have her on insulin and would like to know if we should keep her on half her dose until follow up in January? Thanks! Piper Julian MD [facility]07-02-2025 Progress note Author Mariajose Liya [facility] Note Date/Time December 08, 2024 12:30 pm [facility] Medical Records Department [address] [place] [address] Progress Note - OBGYN 12/08/24 0837 MR#: [id number] Acct: [id number] Name: MELISSA BYRNE Rep #:[id number] : 1995 29 From: Mariajose Nickerson CNGardenia PCP: Dr. Jamari Byrne MD Status:ADM IN Location: IL891-4 Subjective Subjective Patient seen at bedside. Denies [...] % (Auto) 70.0, Lymph % (Auto) 22.0, [place]% (Auto) 6.0, Eos % (Auto) 1.0, Baso [...] Cosigner Signature (if applicable): CC: ~ Signed [facility] Work Phone: 1(143) 587-260107-02-2025 NoteHNO ID: [id number] Author: KRYS MURCIA RN Service: ? Author Type: Registered Nurse Type: Progress Notes Filed: 12/08/2024 13:54 Note Text: Patient delivered via at [facility] on 12/07/24 per William Gramajo MD . See OB Outcome note. [facility]rys [facility]cia [facility] History of Present illness Narrative* Krys Murcia RN - 12/08/2024 1:52 PM EDT Patient delivered via at [facility] on 12/07/24 per William Gramajo MD . See OB Outcome note. Krys Murcia RN documented in [facility] encounterWilson [facility]07-02-2025 Progress note [facility] Medical Records Department [address] [place] [address] Progress Note - OBGYN 12/08/24 0837 MR#: [id number] Acct: [id number] Name: MELISSA BYRNE Rep #:[id number] : 1995 29 From: Mariajose Nickerson CNM PCP: Dr. Jamari Byrne MD Status:ADM IN Location: SP991-8 Subjective Subjective Patient seen at bedside. Denies [...] % (Auto) 70.0, Lymph % (Auto) 22.0, [place]% (Auto) 6.0, Eos % (Auto) 1.0, Baso [...] Cosigner Signature (if applicable): CC: ~ Signed [facility]07-01-2025 Procedure note [facility] Medical Records Department [address] [place] [address] OB Vaginal Delivery 12/07/242023 MR#: [id number] Acct: [id number] Name: MELISSA BYRNE Rep #:[id number] : 1995 29 From: William Gramajo MD PCP: Dr. Jamari Byrne MD Status:ADM IN Location: AP285-3 Maternal Data Information ADA Calculator Estimated Delivery [...] (5 minute): 10 Delayed Cord Clamping: Yes Corporate Technical Recruiter spice miller: No Post Vaginal Deli Medications given after delivery: IV Pitocin Episiotomy Description: None Laceration: None Complication Complications: No 12/07/242025 Cosigner Signature (if applicable): CC: Dr. Jamari Byrne MD; Dr. William Gramajo MD~ Signed [facility]07-01-2025 History and physical note Author William Gramajo [facility] Note Date/Time December 07, 2024 1:42p [facility] Medical Records Department [address] [place] [address] H&P Exam - RN STARS 12/07/24 1223 MR#: [id number] Acct: [id number] Name: MELISSA BYRNE Rep #:[id number] : 1995 29 From: William Gramajo MD PCP: Dr. Jamari Byrne MD Status:ADM IN Location: PA941-6 HPI - General General Date of Admission: 12/07/24 HPI Narrative MELISSA BYRNE, is a 29 F who presents with contractions and was scheduled forinduction today. Maternal Data Information ADA Calculator Estimated Delivery Date Method Current WG Current Estimate 12/18/24 Manual 38w 3d PFSH [facility] Medical History (Updated 12/07/24 @ 13:40 by [...] Byrne MD; Dr. William Gramajo MD~ Signed [facility] Work Phone: 1(742) 566-690707-01-2025 History and physical note [facility] Medical Records Department [address] [place] [address] H&P Exam - RN STARS 12/07/24 1223 MR#: [id number] Acct: [id number] Name: CHAVEZMELISSA MOODY Rep #:[id number] : 1995 29 From: William Gramajo MD PCP: Dr. Jamari Byrne MD Status:ADM IN Location: XE021-2 HPI - General General Date of Admission: 12/07/24 HPI Narrative MELISSA BYRNE, is a 29 F who presents with contractions and was scheduled forinduction today. Maternal Data Information ADA Calculator Estimated Delivery Date Method Current WG Current Estimate 12/18/24 Manual 38w 3d PFSH [facility] Medical History (Updated 12/07/24 @ 13:40 by [...] Byrne MD; Dr. William Gramajo MD~ Signed [facility]06-30-2025 Note Indication Evaluation of well-being Maternal obesity, BMI >30, Diabetes mellitus, History of preeclampsia Impression - Single, live, intrauterine . - presentation is cephalic. - The amniotic fluid volume is normal amount with an MVP of 3.7 cm and an VI of 10.1 cm. - The placenta is anterior, fundal. - BPP 8. Recommendations Continue planned testing Maternal Assessment Height [...] GA 38 w + 2 d Assigned DAA: 12/18/2024 General Evaluation Cardiac activity present. FHR [...] RDMS, RVT Read By: Pooja Latham M.D.MATERNAL [id number] Progress note* Quick Notes - Ronaldo Rubio MD - 12/06/2024 10:22 AM EDT Ab1 at 38w2ds with improved controlled type 2 diabetes using insulin BPP today 01/14 with VI 10 cm . Reports occ [place] [facility] Induction scheduled for tomorrow Patient reports good FM Denies bleeding or LOF 2+ dtr. Ronaldo Rubio MD [facility] Work Phone: [phone] Miscellaneous Notes* Quick Notes - Ronaldo Rubio MD - 12/06/2024 10:22 AM EDT Ab1 at 38w2ds with improved controlled type 2 diabetes using insulin BPP today 01/14 with VI 10 cm . Reports occ [place] [facility] Induction scheduled for tomorrow Patient reports good FM Denies bleeding or LOF 2+ dtr. Ronaldo Rubio MD documented in [facility] encounterWilson [facility]06-30-2025 Telephone encounter Note * Telephone Encounter - [...] again next week (if applicable!)- thanks! KB [facility]06-30-2025 Miscellaneous Notes* Telephone Encounter - Kelsy Guillermo [...] (if applicable!)- thanks! KB documented in this encounterWilson Health06-30-2025 Instructions* Patient Instructions* Renetta Petersen MA - 12/06/2024 8:22 AM EDT SEQUENTIAL SCREENINGS The [facility] offers sequential screenings for women who are [...] testing. It will require an appointment withour artificial insemination technician. This is not an ultrasound performed [...] the above symptoms, contact our office at [phone] and ask to speak with anurse. After hours, you can call doctors registry at [phone] OR call [facility] at [phone] ask to have the doctor electric motors salesperson paged. If you consider this an emergency, dial 7--9 or go to your nearest emergency department. NEED HELP? Are you dealing with a violent or abusive relationship? Are you a victim of rape or sexual assult? Call [facility] ([place]) 24 hour Crisis Hotline: 693.453.2089 or 471-044-2008. MANUAL Your Guide to a Healthy manual is now on-line. Visit [email or web address] to download your free copy documented in this encounterWilson Health06-26-2025 [facility] History of Present illness Narrative* Keshav [...] SIGNATURE: Keshav Loving DO documented in this encounterWilson Health06-26-2025 Progress note* Quick Notes - Keshav Loving MD - 12/02/2024 10:56 AM EDT SW- Pt doing well. No SALMON, vision changes, ctx, vb, lof. Good FM [...] week. NST reactive today Keshav Loving DO [facility]06-26-2025 Miscellaneous Notes* Quick Notes - Keshav Loving MD - 12/02/2024 10:56 AM EDT SW- Pt doing well. No SALMON, vision changes, ctx, vb, lof. Good FM [...] today Keshav Loving DO documented in this encounterWilson Health06-26-2025 Instructions* Patient Instructions* Rebeca Vazquez MA - 12/02/2024 10:05 AM EDT SEQUENTIAL SCREENINGS The [facility] offers sequential screenings for women who are [...] testing. It will require an appointment withour artificial insemination technician. This is not an ultrasound performed [...] the above symptoms, contact our office at [phone] and ask to speak with anurse. After hours, you can call doctors registry at [phone] OR call [facility] at [phone] ask to have the doctor electric motors salesperson paged. If you consider this an emergency, dial 91-2 or go to your nearest emergency department. NEED HELP? Are you dealing with a violent or abusive relationship? Are you a victim of rape or sexual assult? Call [facility] ([place]) 24 hour Crisis Hotline: 502.441.7777 or 237-330-8999. MANUAL Your Guide to a Healthy manual is now on-line. Visit [email or web address] to download your free copy documented in this encounterWilson Health06-25-2025 Telephone encounter Note * Telephone Encounter - [...] Will review again next week- thanks! KB [facility]06-25-2025 Miscellaneous Notes* Telephone Encounter - Kelsy Guillermo [...] next week- thanks! KB documented in this encounterWilson Health06-24-2025 Note Indication Evaluation of well-being Maternal obesity, [...] RDMS, RVT Read By: Elie Coronado M.D.MATERNAL [id number] Progress note* Quick Notes - William Gramajo [...] labor & FM precautions William Gramajo MD [facility]06-19-2025 Miscellaneous Notes* Quick Notes - William Gramajo [...] precautions William Gramajo MD documented in this encounterWilson Health06-19-2025 [facility] History of Present illness Narrative* William [...] SIGNATURE: William Gramajo MD documented in this encounterWilson Health06-19-2025 Instructions* Patient Instructions* Teri Jack MA - 11/25/2024 8:48 AM EDT SEQUENTIAL SCREENINGS The [facility] offers sequential screenings for women who are [...] testing. It will require an appointment withour artificial insemination technician. This is not an ultrasound performed [...] the above symptoms, contact our office at [phone] and ask to speak with anurse. After hours, you can call [employer] registry at [phone] OR call [facility] at [phone] ask to have the doctor electric motors salesperson paged. If you consider this an emergency, dial 9-1-1 or go to your nearest emergency department. NEED HELP? Are you dealing with a violent or abusive relationship? Are you a victim of rape or sexual assult? Call [facility] ([place]) 24 hour Crisis Hotline: 866.381.5919 or 458-802-3187. MANUAL Your Guide to a Healthy manual is now on-line. Visit [email or web address] to download your free copy documented in this encounterWilson Health06-19-2025 Telephone encounter Note * Telephone Encounter - [...] review again next week- thanks! Dr Guillermo [facility]06-19-2025 Miscellaneous Notes* Telephone Encounter - Kelsy Guillermo [...] week- thanks! Dr Guillermo documented in this encounterWilson Health06-16-2025 Telephone encounter Note * Telephone Encounter - Piper Julian MD - 11/22/2024 12:31 PM EDT noted. We did receive a note from them at one point. She should follow up as they recommend and it is ok for her to undergo treatments during . Piper Julian MD [facility]06-16-2025 Miscellaneous Notes* Telephone Encounter - Piper Julian MD - 11/22/2024 12:31 PM EDT noted. We did receive a note from them at one point. She should follow up as they recommend and it is ok for her to undergo treatments during . Piper Julian MD documented in this encounterWilson Health06-16-2025 Note Indication Evaluation of growth, Evaluation of [...] Amniotic fluid volume /8 Biophysical profile score Growth Overview Exam date [...] 13 oz EFW by: Hadlock (HC-AC-FL) Extended Pile Driving Superintendent 7.4 mm Extremities / Bony Struc FL [...] RDMS, RVT Read By: Alondra Segundo M.D.MATERNAL [id number] [facility]06-[facility] History of Present illness Narrative* Keshav [...] SIGNATURE: Keshav Loving DO documented in this encounterWilson Health06-12-2025 Progress note* Quick Notes - Keshav Loving [...] Keep scheduled follow up Keshav Loving DO [facility]06-12-2025 Miscellaneous Notes* Quick Notes - Keshav Loving [...] up Keshav Loving DO documented in this encounterWilson Health06-12-2025 Instructions* Patient Instructions* Rebeca Vazquez MA - 11/18/2024 2:25 PM EDT SEQUENTIAL SCREENINGS The [facility] offers sequential screenings for women who are [...] testing. It will require an appointment withour artificial insemination technician. This is not an ultrasound performed [...] the above symptoms, contact our office at [phone] and ask to speak with anurse. After hours, you can call doctors registry at [phone] OR call [facility] at [phone] ask to have the doctor electric motors salesperson paged. If you consider this an emergency, dial 9-1- or go to your nearest emergency department. NEED HELP? Are you dealing with a violent or abusive relationship? Are you a victim of rape or sexual assult? Call [facility] ([place]) 24 hour Crisis Hotline: 604.661.4772 or 402-985-3517. MANUAL Your Guide to a Healthy manual is now on-line. Visit [email or web address] to download your free copy documented in this encounterWilson Health06-11-2025 [facility]06-[facility] Telephone encounter Note* Telephone Encounter - [...] Will review again next week- thanks! KB [facility]06-10-2025 Miscellaneous Notes* Telephone Encounter - Kelsy Guillermo [...] next week- thanks! KB documented in this encounterWilson Health06-09-2025 Note Indication Evaluation of well-being Maternal obesity, BMI >30, Diabetes mellitus, History of preeclampsia Impression - Single, live, intrauterine . - presentation is cephalic. - The amniotic fluid volume is normal amount with an MVP of 2.3 cm and an VI of 7.9 cm. - The placenta is anterior, fundal. - BPP /8. Recommendations Continue planned testing Maternal Assessment Height [...] RDMS, RVT Read By: Pooja Latham M.D.MATERNAL [id number] Progress note* Quick Notes - Keshav Loving MD - 11/15/2024 8:38 AM EDT SW- pt doing well. No pain, SALMON, vision changes, vb, lof. Good FM. Having some irregular ctx's PE: Gen- NAD, well appearing Abd- Obese See flowsheet A/p 35 wk gestation - GBS bacteruria 05/07/24. Discussed PCN in labor - Pre existing diabetes: Ultrasound today and final report pending. BPP 01/14. Follows with endo. Cont scheduled twice weekly testing - HSV: Cont Acyclovir prophylaxis - RTO 1 wk Keshav Loving DO [facility]06-09-2025 Miscellaneous Notes* Quick Notes - Keshav Loving MD - 11/15/2024 8:38 AM EDT SW- pt doing well. No pain, SALMON, vision changes, vb, lof. Good FM. Having [...] wk Keshav Loving DO documented in this encounterWilson Health06-09-2025 Instructions* Patient Instructions* Rebeca Vazquez MA - 11/15/2024 8:24 AM EDT SEQUENTIAL SCREENINGS The [facility] offers sequential screenings for women who are [...] testing. It will require an appointment withour artificial insemination technician. This is not an ultrasound performed [...] the above symptoms, contact our office at [phone] and ask to speak with anurse. After hours, you can call doctors registry at [phone] OR call [facility] at [phone] ask to have the doctor electric motors salesperson paged. If you consider this an emergency, dial 9--1 or go to your nearest emergency department. NEED HELP? Are you dealing with a violent or abusive relationship? Are you a victim of rape or sexual assult? Call [facility] ([place]) 24 hour Crisis Hotline: 924.415.5195 or 327-320-8928. MANUAL Your Guide to a Healthy manual is now on-line. Visit [email or web address] to download your free copy documented in this encounterWilson Health06-05-2025 Progress note* Quick Notes - Krys Kulkarni [...] 2 diabetes mellitus in in third trimester ([facility]) - ICD9: 648.03, 250.00, ICD10: O24.113 (primary diagnosis) - Controlled - URINE OB DIP B/O 2. pruritus, third trimester ([facility]) - ICD9: 646.83, 698.9, ICD10: O99.713, L29.9 Labs normal - URINE OB DIP B/O 3. History of pre-eclampsia - ICD9: V13.29, ICD10: Z87.59 TruBP normal - URINE OB DIP B/O 4. H/O macrosomia in in prior , currently ([facility]) - ICD9: V23.49, ICD10: O09.299 - URINE OB DIP B/O 5. 34 weeks gestation of ([facility]) - ICD9: V22.2, ICD10: Z3A.34 - URINE OB DIP B/O Krys Kulkarni MD [facility]06-05-2025 Miscellaneous Notes* Quick Notes - Krys Kulkarni [...] 2 diabetes mellitus in in third trimester ([facility]) - ICD9: 648.03, 250.00, ICD10: O24.113 (primary diagnosis) - Controlled - URINE OB DIP B/O 2. pruritus, third trimester ([facility]) - ICD9: 646.83, 698.9, ICD10: O99.713, L29.9 Labs normal - URINE OB DIP B/O 3. History of pre-eclampsia - ICD9: V13.29, ICD10: Z87.59 TruBP normal - URINE OB DIP B/O 4. H/O macrosomia in infant in prior , currently ([facility]) - ICD9: V23.49, ICD10: O09.299 - URINE OB DIP B/O 5. 34 weeks gestation of ([facility]) - ICD9: V22.2, ICD10: Z3A.34 - URINE OB DIP B/O Krys Kulkarni MD documented in this encounterWilson Health06-05-2025 Instructions* Patient Instructions* Renetta Petersen MA - 11/11/2024 9:11 AM EDT SEQUENTIAL SCREENINGS The [facility] offers sequential screenings for women who are [...] testing. It will require an appointment withour artificial insemination technician. This is not an ultrasound performed [...] the above symptoms, contact our office at [phone] and ask to speak with anurse. After hours, you can call doctors registry at [phone] OR call [facility] at [phone] ask to have the doctor electric motors salesperson paged. If you consider this an emergency, dial 7-1-6 or go to your nearest emergency department. NEED HELP? Are you dealing with a violent or abusive relationship? Are you a victim of rape or sexual assult? Call [facility] ([facility] 24 hour Crisis Hotline: 495.509.2413 or 256-287-9391. MANUAL Your Guide to a Healthy manual is now on-line. Visit [email or web address] to download your free copy documented in this encounterWilson Health06-02-2025 Note Indication Evaluation of well-being Maternal obesity, [...] RDMS, RVT Read By: Pooja Latham M.D.MATERNAL [id number] History of Present illness Narrative* Krys Kulkarni MD - 11/05/2024 11:22 AM EDT NST SUMMARY PROVIDER ASSESSMENT AND INTERPRETATION Indications for NST: Diabetes - Insulin Controlled Baseline: 140 Variability: Moderate Accelerations: Present 15 X 15 Decelerations: None Interpretation: Reactive SIGNATURE: Krys Kulkarni MD documented in this encounterWilson Health05-30-2025 [facility] Progress note* Quick Notes - Krys [...] ago ASSESSMENT/PLAN: 1. 33 weeks gestation of ([facility]) - ICD9: V22.2, ICD10: Z3A.33 (primary diagnosis) PTL precautions - URINE OB DIP B/O 2. pruritus Shemar acids and LFTs ordered - URINE OB DIP B/O 3. Pre-existing type 2 diabetes mellitus in in third trimester ([facility]) - ICD9: 648.03, 250.00, ICD10: O24.113 Sees endocrine for management. Stable this week Optho complete and f/u in Jan NST and BPP weekly - URINE OB DIP B/O 4. Supervision of high risk in third trimester ([facility]) - ICD9: V23.9, ICD10: O09.93 - URINE OB DIP B/O Krys Kulkarni MD [facility]05-30-2025 Miscellaneous Notes* Quick Notes - Krys Kulkarni [...] ago ASSESSMENT/PLAN: 1. 33 weeks gestation of ([facility]) - ICD9: V22.2, ICD10: Z3A.33 (primary diagnosis) PTL precautions - URINE OB DIP B/O 2. pruritus Shemar acids and LFTs ordered - URINE OB DIP B/O 3. Pre-existing type 2 diabetes mellitus in in third trimester ([facility]) - ICD9: 648.03, 250.00, ICD10: O24.113 Sees endocrine for management. Stable this week Optho complete and f/u in Jan NST and BPP weekly - URINE OB DIP B/O 4. Supervision of high risk in third trimester ([facility]) - ICD9: V23.9, ICD10: O09.93 - URINE OB DIP B/O Krys Kulkarni MD documented in this encounterWilson Health05-30-2025 Instructions* Patient Instructions* Rebeca Vazquez MA - 11/05/2024 10:18 AM EDT SEQUENTIAL SCREENINGS The [facility] offers sequential screenings for women who are [...] testing. It will require an appointment withour artificial insemination technician. This is not an ultrasound performed [...] the above symptoms, contact our office at [phone] and ask to speak with anurse. After hours, you can call doctors registry at [phone] OR call [facility] at [phone] ask to have the doctor electric motors salesperson paged. If you consider this an emergency, dial 9-1-5 or go to your nearest emergency department. NEED HELP? Are you dealing with a violent or abusive relationship? Are you a victim of rape or sexual assult? Call [facility] ([place]) 24 hour Crisis Hotline: 946.424.9859 or 682-501-2403. MANUAL Your Guide to a Healthy manual is now on-line. Visit [email or web address] to download your free copy documented in this encounterWilson Health05-29-2025 Miscellaneous Notes* Forensic/SANE/Chava - Alicia Pitts RN - 11/04/2024 1:00 PM EDTSummary: [place] Power Consult Note 11/04/24 M-Power Stamp Mounter Note Hospital Name: [place] Completed by: Alicia Pitts RN Date: November 04, 2024 M-Power Resource Time: 2.5 hours Consult Code:A and D Consult Type: In-person outpatient Safety Concerns: No Melissa Byrne [id number] Preferred Name: Hoda OB Provider: Piper Julian Estimated Date of Delivery: 12/18/24 Designated Support People: fob- Alexi and mother- Anabella Labor Plan at time of Consult: Vaginal, Medicated, Breast milk Primary Themes During Consult: Relationship with partner, family, biologics specialist, caregiver Fear of unknown Primary Triggers: Restriction [...] 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 The last week of the month is very hard for them. She is aware that social service is available to talk. documented in this encounterWilson Health05-29-2025 Progress note* Forensic/SANE/MPower - Alicia Pitts RN - 11/04/2024 1:00 PM EDTSummary: Gardenia Wheeler Consult Note 11/04/24 M-Metrilo Stamp Mounter Note Hospital Name: [place] Completed by: Alicia Pitts RN Date: November 04, 2024 Grouply-Metrilo Resource Time: 2.5 hours Consult Code:A and D Consult Type: In-person outpatient Safety Concerns: No Melissa Byrne [id number] Preferred Name: Hoda OB Provider: Piper Julian Estimated Date of Delivery: 12/18/24 Designated Support People: fob- Alexi and mother- Anabella Labor Plan at time of Consult: Vaginal, Medicated, Breast milk Primary Themes During Consult: Relationship with partner, family, biologics specialist, caregiver Fear of unknown Primary Triggers: Restriction [...] 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 The last week of the month is very hard for them. She is aware that social service is available to talk. [facility]05-29-2025 History of Present illness Narrative* Carrie Larsen, RD - 11/04/2024 11:00 AM EDT [facility] Medical Nutrition Therapy Follow up Visit Type: In-Person (Face to Face): Lydia Alozno [facility] Nutritional Visit: MNT/DIABETES Medical Diagnosis: Type 2 [...] 191 lbs Pre- BMI: 34.9 TW lbs [facility] Weight Gain Recommendations for : [...] -current GA: 13w4d -she is using the Simple-Fillyle zoltan 3 plus CGM and checking BG [...] as prescribed, reports no missed doses -receives [facility] benefits -lost upper dentures with no plan [...] TABLETS BY MOUTH EVERY DAYAT BEDTIME lancets (ONETOUCH DELICA PLUS LANCET) 30 gauge [...] 10-IRON FUM-FOLIC ORAL Take by mouth. Insulin [place], Disposable, (BD ULTRAFINE III MINI PEN) 31 [...] Larsen M.S., RDN, LD documented in this encounterWilson Health05-29-2025 [facility]05-29-2025 History of Present illness Narrative* Kelsy [...] that - had macrosomia, delivered in [place]. She was [...] overall. PAST MEDICAL HISTORY Diagnosis Date Asthma ([facility]) Bipolar H/O macrosomia in infant in prior , currently ([facility]) 05/07/2024 Herpes simplex type 2 (HSV-2) infection affecting , antepartum, unspecified trimester ([facility]) 04/19/2024 Hyperlipidemia LGA (large for gestational age) ([facility]) 12/23/2016 12/23/16 - >95% Polyhydramnios ([facility]) 01/01/2017 Pre-existing type 2 diabetes mellitus in in first trimester ([facility]) 06/15/2024 First trimester Hgb A1c 10.5%, now follows with Dr. Guillermo Recurrent UTI Type 2 diabetes mellitus ([facility]) PAST SURGICAL HISTORY Procedure Laterality [...] EVERY DAYAT BEDTIME 180 tablet 1 lancets (Focus MediaUCH DELICA PLUS LANCET) 30 gauge Use with [...] 10-IRON FUM-FOLIC ORAL Take by mouth. Insulin [place], Disposable, (BD ULTRAFINE III MINI PEN) 31 [...] which included preparing to see the patient, [id number] patient care, completing clinical documentation, obtaining and/or reviewing separately obtained history, performing a medically appropriate examination, counseling and educating the pat ient/family/caregiver, and ordering medications, tests, or procedures. Kelsy Guillermo DO documented in this encounterWilson Health05-29-2025 NoteC[facility]05-29-2025 Instructions* Patient Instructions* Kelsy Guillermo DO [...] (virtual or in person) documented in this encounterWilson Health05-28-2025 Telephone encounter Note * Telephone Encounter - Charlette Starkey RN - 11/03/2024 10:31 AM EDT Order signed and faxed. Charlette Starkey RN [facility]05-28-2025 Miscellaneous Notes* Telephone Encounter - Charlette Starkey RN - 11/03/2024 10:31 AM EDT Order signed and faxed. Charlette Starkey RN * Telephone Encounter - Charlette Starkey RN - 10/29/2024 2:44 PM EDT Breast pump order received from [employer]. To RR to sign. Charlette Starkey RN documented in this encounterWilson Health05-28-2025 Telephone encounter Note * Telephone Encounter - Piper Julian MD - 11/03/2024 10:13 AM EDT noted, we will encourage f/u w/ optho. iPper Julian MD [facility]05-28-2025 Miscellaneous Notes* Telephone Encounter - Piper Julian MD - 11/03/2024 10:13 AM EDT noted, we will encourage f/u w/ optho. Piper Julian MD * Telephone Encounter - Brenda Lares RN - 11/02/2024 11:30 AM EDT I called patient's retinal specialist and spoke with nurse Smith, in Dr Holloway's office at [facility] ph [phone] @ the request of Dr Pooja Latham. [...] inform doctor. Letter has been scanned into [employer]. documented in this encounterWilson Health05-27-2025 Telephone encounter Note * Telephone Encounter - Brenda Lares RN - 11/02/2024 11:30 AM EDT I called patient's retinal specialist and spoke with nurse Smith, in Dr Holloway's office at [facility] ph [phone] @ the request of Dr Pooja Latham. [...] inform doctor. Letter has been scanned into [employer]. [facility]05-27-2025 NoteHNO ID: [id number] Author: WILLIAM GRAMAJO MD Service: ? Author Type: Physician Type: Progress Notes Filed: 11/02/2024 11:32 Note Text: [facility] History of Present illness Narrative* William Gramajo MD - 11/02/2024 11:30 AM EDT N/a documented in this encounterWilson Health05-27-2025 Progress note* Quick Notes - William Gramajo MD - 11/02/2024 11:02 AM EDT KJ - S: Hoda denies LOF, contractions or vaginal bleeding. O: 33w3d, see flow sheet SENSITIVE EXAM: Sensitive exam not performed. A/P: Assessment & Plan Pre-existing type 2 diabetes mellitus in in third trimester ([facility]) Managed by . Patient reports overall good control. Orders: URINE OB DIP B/O History of pre-eclampsia Continue aspirin Orders: URINE OB DIP B/O H/O macrosomia in in prior , currently ([facility]) EFW on growth US shows AGA and expected to be smaller than 1st baby. Growth US with MFM today. Orders: URINE OB DIP B/O 33 weeks gestation of ([facility]) Orders: URINE OB DIP B/O Request for sterilization Title 19 papers signed today Herpes simplex type 2 (HSV-2) infection affecting , antepartum, unspecified trimester ([facility]) On acyclovir prophylaxis William Gramajo MD [facility]05-27-2025 Miscellaneous Notes* Quick Notes - William Gramajo MD - 11/02/2024 11:02 AM EDT KJ - S: Hoda denies LOF, contractions or vaginal bleeding. O: 33w3d, see flow sheet SENSITIVE EXAM: Sensitive exam not performed. A/P: Assessment & Plan Pre-existing type 2 diabetes mellitus in in third trimester ([facility]) Managed by . Patient reports overall good control. Orders: URINE OB DIP B/O History of pre-eclampsia Continue aspirin Orders: URINE OB DIP B/O H/O macrosomia in infant in prior , currently ([facility]) EFW on growth US shows AGA and expected to be smaller than 1st baby. Growth US with MFM today. Orders: URINE OB DIP B/O 33 weeks gestation of ([facility]) Orders: URINE OB DIP B/O Request for sterilization Title 19 papers signed today Herpes simplex type 2 (HSV-2) infection affecting , antepartum, unspecified trimester ([facility]) On acyclovir prophylaxis William Gramajo MD documented in this encounterWilson Health05-27-2025 Instructions* Patient Instructions* Nicola RenettaITZEL - 11/02/2024 10:43 AM EDT SEQUENTIAL SCREENINGS The [facility] offers sequential screenings for women who are [...] testing. It will require an appointment withour artificial insemination technician. This is not an ultrasound performed [...] the above symptoms, contact our office at [phone] and ask to speak with anurse. After hours, you can call doctors registry at [phone] OR call [facility] at [phone] ask to have the doctor electric motors salesperson paged. If you consider this an emergency, dial 9-1-1 or go to your nearest emergency department. NEED HELP? Are you dealing with a violent or abusive relationship? Are you a victim of rape or sexual assult? Call [facility] ([place]) 24 hour Crisis Hotline: 964.780.4106 or 060-086-5810. MANUAL Your Guide to a Healthy manual is now on-line. Visit [email or web address] to download your free copy documented in this encounterWilson Health05-27-2025 Note Indication Evaluation of well-being Maternal obesity, [...] RDMS, RVT Read By: Pooja Latham M.D.MATERNAL [id number] Telephone encounter Note* Telephone Encounter - Charlette Starkey RN - 10/29/2024 2:44 PM EDT Breast pump order received from [employer]. To RR to sign. Charlette Starkey RN [facility]05-19-2025 Progress note* Quick Notes - Piper Julian [...] growth scans up to date will contact [email or web address] as patient reports she doesn't have to go back unless visual changes but want toconfirm this cont acyclovir for HSV prophylaxis Piper Julian M.D. [facility]05-19-2025 Miscellaneous Notes* Quick Notes - Piper Julian [...] 2 diabetes mellitus in in third trimester ([facility]) Orders: ECG COMPLETE URINE OB [...] growth scans up to date will contact opt as patient reports she doesn't have to go back unless visual changes but want toconfirm this cont acyclovir for HSV prophylaxis Piper Julian M.D. documented in this encounterWilson Health05-19-2025 NoteC[facility]05-19-2025 History of Present illness Narrative* Piper Julian MD - 10/25/2024 10:19 AM EDT NST SUMMARY PROVIDER ASSESSMENT AND INTERPRETATION Melissa yBrne is a 29 year old female, , who is at 32w2d with an ADA of 12/18/2024, by Last Menstrual Period dating method. Indications for NST: Diabetes - Insulin Controlled Baseline: 145 Variability: Moderate Accelerations: Present 15 X 15 Decelerations: None Contractions: TOCO: None Interpretation: Reactive SIGNATURE: Piper Julian MD documented in this encounterWilson Health05-19-2025 Instructions* Patient Instructions* Renetta Petersen MA - 10/25/2024 9:26 AM EDT SEQUENTIAL SCREENINGS The [facility] offers sequential screenings for women who are [...] testing. It will require an appointment withour artificial insemination technician. This is not an ultrasound performed [...] the above symptoms, contact our office at [phone] and ask to speak with anurse. After hours, you can call doctors registry at [phone] OR call [facility] at [phone] ask to have the doctor electric motors salesperson paged. If you consider this an emergency, dial 9--1 or go to your nearest emergency department. NEED HELP? Are you dealing with a violent or abusive relationship? Are you a victim of rape or sexual assult? Call [facility] ([place]) 24 hour Crisis Hotline: 270.946.8909 or 886-221-7690. MANUAL Your Guide to a Healthy manual is now on-line. Visit [email or web address] to download your free copy documented in this encounterWilson Health05-13-2025 Telephone encounter Note * Telephone Encounter - [...] Will review again next week- thanks! KB [facility]05-13-2025 Miscellaneous Notes* Telephone Encounter - Kelsy Gulilermo DO - 10/19/2024 6:11 PM EDT Reviewed [...] next week- thanks! KB documented in this encounterWilson Health05-12-2025 Progress note* Quick Notes - Whit Morton MD - 10/18/2024 4:06 PM EDT DM-Pt doing well. Denies vaginal Bleeding, Leaking fluid, or regular Contractions. Pt reports good movement Physical Exam: Gen: female in no apparent distress Abd: soft, Gravid. Non tender to palpation. See flow sheet @ 31 weeks Assessment & Plan Supervision of high risk in third trimester ([facility]) Orders: URINE OB DIP B/O Pre-existing type 2 diabetes mellitus in in third trimester ([facility]) Sees Endocrinology - states pretty well controlled no adjustment on Insulin per endocrinology last A1c 5.2 down from 7.9 Orders: URINE OB DIP B/O Herpes simplex type 2 (HSV-2) infection affecting , antepartum, unspecified trimester ([facility]) Taking acyclovir H/O macrosomia in infant in prior , currently ([facility]) Growth us scheduled History of pre-eclampsia Continue ASA 31 weeks gestation of ([facility]) Kick counts and labor reviewed NSTs and BPP scheduled Orders: URINE OB DIP B/O Whit Patel MD [facility]05-12-2025 Miscellaneous Notes* Quick Notes - Whit Morton MD - 10/18/2024 4:06 PM EDT DM-Pt doing well. Denies vaginal Bleeding, Leaking fluid, or regular Contractions. Pt reports good movement Physical Exam: Gen: female in no apparent distress Abd: soft, Gravid. Non tender to palpation. See flow sheet @ 31 weeks Assessment & Plan Supervision of high risk in third trimester ([facility]) Orders: URINE OB DIP B/O Pre-existing type 2 diabetes mellitus in in third trimester ([facility]) Sees Endocrinology - states pretty well controlled no adjustment on Insulin per endocrinology last A1c 5.2 down from 7.9 Orders: URINE OB DIP B/O Herpes simplex type 2 (HSV-2) infection affecting , antepartum, unspecified trimester ([facility]) Taking acyclovir H/O macrosomia in in prior , currently ([facility]) Growth us scheduled History of pre-eclampsia Continue ASA 31 weeks gestation of ([facility]) Kick counts and labor reviewed NSTs and BPP scheduled Orders: URINE OB DIP B/O Whit Patel MD documented in this encounterWilson Health05-12-2025 Instructions* Patient Instructions* Rebeca Vazquez MA - 10/18/2024 1:34 PM EDT SEQUENTIAL SCREENINGS The [facility] offers sequential screenings for women who are [...] testing. It will require an appointment withour artificial insemination technician. This is not an ultrasound performed [...] the above symptoms, contact our office at [phone] and ask to speak with anurse. After hours, you can call doctors registry at [phone] OR call [facility] at [phone] ask to have the doctor electric motors salesperson paged. If you consider this an emergency, dial 02-07- or go to your nearest emergency department. NEED HELP? Are you dealing with a violent or abusive relationship? Are you a victim of rape or sexual assult? Call [facility] ([place]) 24 hour Crisis Hotline: 523.677.1076 or 874-283-0482. MANUAL Your Guide to a Healthy manual is now on-line. Visit [email or web address] to download your free copy documented in this encounterWilson Health05-10-2025 History and physical note [facility] Medical Records Department [address] [place] [address] OB Triage Physician Note 10/16/24 1838 MR#: [id number] Acct: [id number] Name: MELISSA BYRNE Rep #:[id number] : 1995 29 From: Mariajose Nickerson CNM PCP: Dr. Jamari Byrne MD Status:REG CLI Y Location: UP884-6 HPI - General HPI Narrative MELISSA BYRNE, [...] CNM Cosigner Signature (if applicable): Date CC: CNM Mariajose Nickerson; Dr. Jamari Byrne MD ~ Signed [facility]05-10-2025 Evaluation note* Diagnosis Onset Date Resolution Status Admit Date Asthma acute October 16, 2024 5:10pm Bipolar 1 disorder acute October 162024 5:10pm History of herpes genitalis acute October 16, 2024 5:10pm Type 2 diabetes mellitus affecting , antepartum acute October 16, 2024 5:10pm Obesity affecting resolved October 16, 2024 5:10pm 31 weeks gestation of inac tive October 16, 2024 5:10pm Obesity affecting resolved November [...] diabetes mellitus acute December 16, 2024 7:10pm [facility] Work Phone: [phone]) 739-471505-06-2025 NoteHNO ID: [id number] Author: PAMELA HASKINS MD Service: ? Author Type: Physician Type: Progress Notes Filed: 10/13/2024 09:11 Note Text: Dr. Piper Julian NAME: Melissa Byrne CLINIC Number.: [id number] Date of : 1995 Date of Visit: [...] which included preparing to see the patient, [id number] patient care, completing clinical documentation, obtaining and/or reviewing separately obtained history, performing a medically appropriate examination, counseling and educating the patient/family/caregiver, ordering medications, tests, or procedures, communicating with other HCPs (not separately reported), independently interpreting results (not separately reported), communicating results to the patient/family/caregiver, and care coordination (not separately reported). Sincerely, Dr. Pamela CabreraCobre Valley Regional Medical Centershaquille [facility]05-06-2025 History of Present illness Narrative* Pamela Haskins MD - 10/12/2024 6:[address] Piper Julian NAME: Melissa Byrne CLINIC Number.: [id number] Date of : 1995 Date of Visit: [...] which included preparing to see the patient, [id number] patient care, completing clinical documentation, obtaining and/or reviewing separately obtained history, performing a medically appropriate examination, counseling and educating the pat ient/family/caregiver, ordering medications, tests, or procedures, communicating with other HCPs (not separately reported), independently interpreting results (not separately reported), communicatingresults to the patient/family/caregiver, and care coordination (not separately reported). Sincerely, Dr. Pamela Haskins documented in this encounterWilson Health05-02-2025 Telephone encounter Note * Telephone Encounter - [...] Will review again next week- thanks! KB [facility]05-02-2025 Miscellaneous Notes* Telephone Encounter - Kelsy Guillermo [...] additional 5 units with Higher carb meals (acmilo with * if/when you take the extra insulin so I can see if it is working or not). take 1/2 of the Humalog if you don't feel like you're going to eat enough or eat a lower carb meal.Camilo with 0 if you take less insulin. Will review again next week- thanks! KB documented in this encounterWilson Health04-28-2025 Progress note* Quick Notes - Piper Julian [...] CULTURE, URINE; Future 29 weeks gestation of ([facility]) Orders: ECG COMPLETE; Future NON-STRESS TEST; Standing PROTEIN / CREATININE RATIO; Future BACTERIAL CULTURE, URINE; Future Pre-existing type 2 diabetes mellitus in in third trimester ([facility]) Orders: ECG COMPLETE; Future NON-STRESS TEST; Standing PROTEIN / CREATININE RATIO; Future BACTERIAL CULTURE, URINE; Future Supervision of high risk in third trimester ([facility]) Orders: ECG COMPLETE; Future NON-STRESS TEST; Standing PROTEIN / CREATININE RATIO; Future BACTERIAL CULTURE, URINE; Future 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 carrier and NIPT test this previous child had testing at [facility] Pre-existing type 2 diabetes mellitus in in first trimester ([facility]) follows w/ endocrine, hgba1 c controlled dm retinopathy - has f/u w/ optho ecg ordered/encouraged check prot/creat ratio today 28 week labs done Tobacco smoking complicating in first trimester ([facility]) decreased to 2 cig a day, encouraged to quit, support offered History of recurrent UTI (urinary tract infection) recheck culture today 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, 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, 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 [facility]04-28-2025 Miscellaneous Notes* Quick Notes - Piper Julian [...] CULTURE, URINE; Future 29 weeks gestation of ([facility]) Orders: ECG COMPLETE; Future NON-STRESS TEST; Standing PROTEIN / CREATININE RATIO; Future BACTERIAL CULTURE, URINE; Future Pre-existing type 2 diabetes mellitus in in third trimester ([facility]) Orders: ECG COMPLETE; Future NON-STRESS TEST; Standing PROTEIN / CREATININE RATIO; Future BACTERIAL CULTURE, URINE; Future Supervision of high risk in third trimester ([facility]) Orders: ECG COMPLETE; Future NON-STRESS TEST; Standing PROTEIN / CREATININE RATIO; Future BACTERIAL CULTURE, URINE; Future 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 carrier and NIPT test this previous child had testing at [facility] Pre-existing type 2 diabetes mellitus in in first trimester ([facility]) follows w/ endocrine, hgba1 c controlled dm retinopathy - has f/u w/ optho ecg ordered/encouraged check prot/creat ratio today 28 week labs done Tobacco smoking complicating in first trimester ([facility]) decreased to 2 cig a day, encouraged to quit, support offered History of recurrent UTI (urinary tract infection) recheck culture today 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, 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, unspecifiedwhether residential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 ([facility]) f/u optho as scheduled Herpes simplex type 2 (HSV-2) infection affecting , antepartum, unspecified trimester ([facility]) prophylaxis ordered, no outbreaks recently taking abx for BV on PNV and ASA start nsts at 32 weeks wait for MFM to read US repeat US in 4 weeks tdap today Medical Decision Making: Problems: Moderate: 1+ chronic illnesses with change Data: Unique test(s) ordered: 3+ Medical Decision Making Level: 4 - Moderate Piper Julian M.D. documented in this encounterWilson Health04-28-2025 Instructions* Patient Instructions* Teri Jack MA - 10/04/2024 11:10 AM EDT SEQUENTIAL SCREENINGS The [facility] offers sequential screenings for women who are [...] testing. It will require an appointment withour artificial insemination technician. This is not an ultrasound performed [...] the above symptoms, contact our office at [phone] and ask to speak with anurse. After hours, you can call doctors registry at [phone] OR call [facility] at [phone] ask to have the doctor electric motors salesperson paged. If you consider this an emergency, dial 9--4 or go to your nearest emergency department. NEED HELP? Are you dealing with a violent or abusive relationship? Are you a victim of rape or sexual assult? Call [facility] ([place]) 24 hour Crisis Hotline: 753.157.9436 or 212-637-4717. MANUAL Your Guide to a Healthy manual is now on-line. Visit [email or web address] to download your free copy documented in this encounterWilson Health04-21-2025 Telephone encounter Note * Telephone Encounter - Juana Terrazas RN - 09/27/2024 4:43 PM EDT [employer] message sent to Pt and Pt read on 09/27/24. Juana Terrazas RN [facility]04-21-2025 Miscellaneous Notes* Telephone Encounter - Juana Terrazas RN - 09/27/2024 4:43 PM EDT [employer] message sent to Pt and Pt read [...] absence. Juana Terrazas RN documented in this encounterWilson Health04-21-2025 Telephone encounter Note * Telephone Encounter - Krys Kulkarni MD - 09/27/2024 1:43 PM EDT Rx sent [facility]04-21-2025 Telephone encounter Note* Telephone Encounter - Juana [...] review in LEE absence. Juana Terrazas RN [facility]04-18-2025 Evaluation note* Diagnosis Onset Date Resolution Status [...] , antepartum acute October 16, 2024 5:10pm [facility] Work Phone: 1(778) 933-183804-18-2025 Evaluation note* Diagnosis Onset Date Resolution Status [...] , antepartum acute December 07, 2024 11:00am [facility] Work Phone: 1(134) 339-981104-18-2025 Evaluation note* Diagnosis Onset Date Resolution Status Admit Date 27 weeks gestation of inac tive September 24, 2024 1:48pm Uterine irritability inactive Apr l 2024 1:48pm Asthma acute October 16, [...] diabetes mellitus acute December 16, 2024 7:10pm [facility] Work Phone: 1(305) 351-664604-18-2025 Evaluation note* Diagnosis Onset Date Resolution Status Admit Date 27 weeks gestation of inac tive September 24, 2024 1:48pm Uterine irritability inactive 2024 1:48pm Asthma acute October 16, 2024 5:10pm Bipolar 1 disorder acute October 162024 5:10pm History of herpes genitalis acute October 16, 2024 5:10pm Type 2 diabetes mellitus affecting , antepartum acute October 16, 2024 5:10pm Obesity affecting resolved October 16, 2024 5:10pm 31 weeks gestation of ina tiOctober 16, 2024 5:10pm Obesity affecting resolved November 15, 2024 3:32pm 35 weeks gestation of [facility] tive November 15, 2024 3:32pm False labor [...] diabetes mellitus acute December 16, 2024 7:10pm [facility] Work Phone: 1(352) 290-394604-18-2025 Telephone encounter Note* Telephone Encounter - Kelsy [...] Will review again next week- thanks! KB [facility]04-18-2025 Miscellaneous Notes* Telephone Encounter - Kelsy Guillermo [...] next week- thanks! KB documented in this encounterWilson Health04-18-2025 [facility]04-18-2025 History of Present illness Narrative* Leonie Waldron APRN.CNM - 09/24/2024 8:55 AM EDT LEEInaS: Melissa Byrne is a 29 year old [...] discussed with the Patient or Patient's Authorized Franchise Business Consultant. Asapplicable, any other physician, advance practice provider, medical student, or other health professional student that will be observing or involved in the sensitive examination for educational or training purposes was discussed with the Patient or Authorized Franchise Business Consultant. The Patient or Authorized Franchise Business Consultant has agreed to proceed with the sensitive [...] scheduled Leonie Waldron APRN.CNM documented in this encounterWilson Health04-18-2025 Telephone encounter Note * Telephone Encounter - Faina Levin MA - 09/24/2024 8:44 AM EDT OneTouch test strips were sent to [facility], patient requesting [facility]. Sent patient mychart message to contact [facility] to fill at that location. [facility]04-18-2025 Miscellaneous Notes* Telephone Encounter - Faina Levin MA - 09/24/2024 8:44 AM EDT OneTouch test strips were sent to [facility], patient requesting [facility]. Sent patient mychart message to contact [facility] to fill at that location. documented in this encounterWilson Health04-18-2025 Instructions* Patient Instructions* Oniel Vinson MA - 09/24/2024 8:41 AM EDT SEQUENTIAL SCREENINGS The [facility] offers sequential screenings for women who are [...] testing. It will require an appointment withour artificial insemination technician. This is not an ultrasound performed [...] the above symptoms, contact our office at [phone] and ask to speak with anurse. After hours, you can call doctors registry at [phone] OR call [facility] at [phone] ask to have the doctor electric motors salesperson paged. If you consider this an emergency, dial or go to your nearest emergency department. NEED HELP? Are you dealing with a violent or abusive relationship? Are you a victim of rape or sexual assult? Call [facility] ([place]) 24 hour Crisis Hotline: 109.129.5319 or 605-020-5966. MANUAL Your Guide to a Healthy manual is now on-line. Visit [email or web address] to download your free copy documented in this encounterWilson Health04-18-2025 [facility]04-18-2025 History of Present illness Narrative* Mary [...] vaginal leaking, bleeding, contractions. documented in this encounterWilson Health04-14-2025 Instructions* Patient Instructions* Kelsy Guillermo DO - [...] f/u (prefers in person). documented in this encounterWilson Health04-14-2025 History of Present illness Narrative* Kelsy Guillermo [...] DM during thatpregnancy- had macrosomia, delivered in [place]. She was initially diagnosed with type 2 [...] overall. PAST MEDICAL HISTORY Diagnosis Date Asthma ([facility]) Bipolar H/O macrosomia in infant in prior , currently ([facility]) 05/07/2024 Herpes simplex type 2 (HSV-2) infection affecting , antepartum, unspecified trimester ([facility]) 04/19/2024 Hyperlipidemia LGA (large for gestational age) ([facility]) 12/23/2016 12/23/16 - >95% Polyhydramnios ([facility]) 01/01/2017 Pre-existing type 2 diabetes mellitus in in first trimester ([facility]) 06/15/2024 First trimester Hgb A1c 10.5%, now follows with Dr. Guillermo Recurrent UTI Type 2 diabetes mellitus ([facility]) PAST SURGICAL HISTORY Procedure Laterality [...] 90 units at bedtime 45mL 11 lancets (ONETOUCH DELICA PLUS LANCET) 30 gauge [...] TIMES DAILY 150 Each 11 Blood-Glucose Meter (SahareyTOUCH VERIO FLEX METER) Use to check blood [...] 10-IRON FUM-FOLIC ORAL Take by mouth. Insulin [place], Disposable, (BD ULTRAFINE III MINI PEN) 31 [...] forward me your blood glucose data weekly ([email or web address]) as you are doing- 3) continue [...] which included preparing to see the patient, [id number] patient care, completing clinical documentation, obtaining and/or reviewing separately obtained history, performing a medically appropriate examination, counseling and educating the pat ient/family/caregiver, and ordering medications, tests, or procedures. Kelsy Guillermo DO documented in this encounterWilson Health04-14-2025 NoteC[facility]04-05-2025 Telephone encounter Note* Telephone Encounter - [...] review again next week- thanks! Dr Guillermo [facility]04-05-2025 Miscellaneous Notes* Telephone Encounter - Kelsy Guillermo [...] week- thanks! Dr Guillermo documented in this encounterWilson Health04-01-2025 Telephone encounter Note * Telephone Encounter - [...] Will review again next week- thanks NILES [facility]04-01-2025 Miscellaneous Notes* Telephone Encounter - Kelsy Guillermo DO - 09/07/2024 2:11 PM EDT Reviewed BG data- responded as follows: Hector Drummond- I reviewed your BG data- your more [...] next week- thanks NILES documented in this encounterWilson Health04-01-2025 Telephone encounter Note * Telephone Encounter - Amelia Rose RN - 09/07/2024 12:46 PM EDT Spoke to patient and advised as below. Patient verbalized understanding. [facility]04-01-2025 Miscellaneous Notes* Telephone Encounter - Amelia Rose [...] calling: self Call patient at: at home [phone] (home) [phone] (cell) Was an appointment scheduled: No Closing statement: Results or non-symptom based questions: Thank you for calling [facility], your call will be returned within the next business day. Kim East documented in this encounterWilson Health04-01-2025 Telephone encounter Note * Telephone Encounter - Kelsy Guillermo DO - 09/07/2024 12:39 PM EDT Please advise her that she does not need to do glucose tolerance testing- she is already checking BG/taking insulin- so this test will not change her management KB [facility]04-01-2025 Telephone encounter Note* Telephone Encounter - Kim Gross - 09/07/2024 12:09 PM EDT Hoda is calling Kelsy Guillermo DO today States her OB office ordered her a glucose test but she is asking Dr Radha if that is something sheshould have done Please advise Patient has been identified by name and birthdate. Duration of symptoms: N/A Person calling: self Call patient at: at home [phone] (home) [phone] (cell) Was an appointment scheduled: No Closing statement: Results or non-symptom based questions: Thank you for calling [facility], your call will be returned within the next business day. Kim Guerrero Pss [facility]04-01-2025 Progress note* Quick Notes - Ronaldo Rubio MD - 09/07/2024 11:15 AM EDT Patient at 25w 3 days, Type II Diabetic followed by endocrine. Reports FBSs ~ 90-95, and 2hrs Endocrine appointment 09/14. Denies ctrx, bleeding, lof labs today echo 5/6 rto 2 weeks Ronaldo Rubio MD [facility] Work Phone: 1(806) 766-216204-01-2025 Miscellaneous Notes* Quick Notes - Ronaldo Rubio MD - 09/07/2024 11:15 AM EDT Patient at 25w 3 days, Type II Diabetic followed by endocrine. Reports FBSs ~ 90-95, and 2hrs </= 120 (no book with her) Endocrine appointment 09/14. Denies ctrx, bleeding, lof labs today echo 5/6 rto 2 weeks Ronaldo Rubio MD documented in this encounterWilson Health04-01-2025 Instructions* Patient Instructions* Sundeep Salvador MA - 09/07/2024 10:40 AM EDT SEQUENTIAL SCREENINGS The [facility] offers sequential screenings for women who are [...] testing. It will require an appointment withour artificial insemination technician. This is not an ultrasound performed [...] the above symptoms, contact our office at [phone] and ask to speak with anurse. After hours, you can call doctors registry at [phone] OR call [facility] at [phone] ask to have the doctor electric motors salesperson paged. If you consider this an emergency, dial 2-5-6 or go to your nearest emergency department. NEED HELP? Are you dealing with a violent or abusive relationship? Are you a victim of rape or sexual assult? Call [facility] ([place]) 24 hour Crisis Hotline: 115.293.8754 or 823-924-0339. MANUAL Your Guide to a Healthy manual is now on-line. Visit [email or web address] to download your free copy documented in this encounterWilson Health03-31-2025 History of Present illness Narrative* Jamari Byrne [...] to Dr Groves after Maternal med in [facility] every 4 week Quit smoking but down to 2 cig per day Stress living arrangements Will try to breast feeding Receives [facility] Bipolar depression Rx Dr Jackson 1 month [...] all orders for this visit: Exercise-induced asthma ([facility]) - albuterol 90 mcg/actuation inhaler; INHALE 1 [...] if she stop smoking [facility] Work Phone: 1(346) 652-852103-31-2025 Telephone encounter Note* Telephone Encounter - Idania Murphy RN - 09/06/2024 9:48 AM EDT Request received from pharmacy for 90 day supply of aspirin Rx. Patient 25w2d, last seen in office on 08/10/24. Idania Murphy RN [facility]03-31-2025 Miscellaneous Notes* Telephone Encounter - Idania Murphy RN - 09/06/2024 9:48 AM EDT Request received from pharmacy for 90 day supply of aspirin Rx. Patient 25w2d, last seen in office on 08/10/24. Idnaia Murphy RN documented in this encounterWilson Health03-28-2025 Note Indication Follow-up evaluation to complete anatomic [...] 6 oz EFW by: Hadlock (HC-AC-FL) Extended Pile Driving Superintendent 6.2 mm CM 8.6 mm 97% Nicolaides [...] RDMS, RVT Read By: Mario Martin M.D.MATERNAL [id number] Telephone encounter Note* Telephone Encounter - Kelsy Guillermo DO - 08/30/2024 8:42 AM EDT Reviewed BG data- responded as follows: Hi Hoda- I reviewed your BG data- Lets [...] Will review again next week- thanks! KB [facility]03-24-2025 Miscellaneous Notes* Telephone Encounter - Kelsy Guillermo DO - 08/30/2024 8:42 AM EDT Reviewed BG data- responded as follows: Hi Hoda- I reviewed your BG data- Lets [...] next week- thanks! KB documented in this encounterWilson Health03-19-2025 Telephone encounter Note * Telephone Encounter - Charlette Starkey RN - 08/25/2024 9:52 AM EDT Patient notified. She wanted to move u/s up sooner. Scheduled for 09/02. Patient also preferred to keep 09/07 OB appointment as scheduled with RR. Charlette Starkey, RN [facility]03-19-2025 Miscellaneous Notes* Telephone Encounter - Charlette Starkey [...] scheduled. Charlette Starkey RN documented in this encounterWilson Health03-19-2025 Telephone encounter Note * Telephone Encounter - Piper Julian MD - 08/25/2024 9:08 AM EDT Official readings have been normal as have growth. Keep next growth US, can be 3 weeks instead of 4but we don't need to do anything different at this time, conbt. q 4 week growth scans. RLR [facility] Work Phone: 1(894) 399-230403-19-2025 Telephone encounter Note* Telephone Encounter - Idania Murphy RN - 08/25/2024 9:04 AM EDT Patient called back this morning, can you address phone noted below? Idania Murphy RN [facility]03-18-2025 Telephone encounter Note* Telephone Encounter - Charlette Starkey RN - 08/24/2024 4:30 PM EDT 23w3d Patient had echo done today and pediatric cardiology provider noted the amniotic fluid volumeappeared subjectively low. Patient is questioning if she needs sooner appointment than her 09/07/24 f/u anatomy one that is scheduled. Charlette Starkey RN [facility]03-18-2025 NoteHNO ID: [id number] Author: PAMELA HASKINS MD Service: ? Author Type: Physician Type: Progress Notes Filed: 08/24/2024 14:20 Note Text: Dr. Pooja Julian NAME: Melissa Byrne CLINIC Number.: [id number] Date of : 1995 Date of Visit: [...] which included preparing to see the patient, [id number] patient care, completing clinical documentation, obtaining and/or reviewing separately obtained history, performing a medically appropriate examination, counseling and educating the patient/family/caregiver, ordering medications, tests, or procedures, communicating with other HCPs (not separately reported), independently interpreting results (not separately reported), and communicating results to the patient/family/caregiver. I also performed portions of the echocardiogram myself. Sincerely, Dr. Pamela CabreraCobre Valley Regional Medical Centershaquille [facility]03-18-2025 History of Present illness Narrative* Pamela Haskins MD - 08/24/2024 12:[address] Pooja Julian NAME: Melissa Byrne CLINIC Number.: [id number] Date of : 1995 Date of Visit: [...] which included preparing to see the patient, [id number] patient care, completing clinical documentation, obtaining and/or reviewing separately obtained history, performing a medically appropriate examination, counseling and educating the pat ient/family/caregiver, ordering medications, tests, or procedures, communicating with other HCPs (not separately reported), independently interpreting results (not separately reported), and communicating results to the patient/family/caregiver. I also performed portions of the echocardiogram myself. Sincerely, Dr. Pamela Haskins documented in this encounterWilson Health03-14-2025 Telephone encounter Note * Telephone Encounter - [...] Will review again next week- thanks! NILES [facility]03-14-2025 Miscellaneous Notes* Telephone Encounter - Kelsy Guillermo DO - 08/20/2024 3:15 PM EDT Reviewed BG data- responded as follows: Hector Drummond- I reviewed your BG data- overall these [...] next week- thanks! NILES documented in this encounterWilson Health03-12-2025 Telephone encounter Note * Telephone Encounter - Amelia Rose RN - 08/18/2024 10:50 AM EDT Spoke to [facility] pharmacy in [place]. They will transfer the prescription over. [facility]03-12-2025 Miscellaneous Notes* Telephone Encounter - Amelia Rose RN - 08/18/2024 10:50 AM EDT Spoke to [facility] pharmacy in [place]. They will transfer the prescription over. * Telephone Encounter - Krys Arellano - 08/18/2024 9:20 AM EDT Hoda is calling Kelsy Guillermo DO today to request that insulin lispro (HUMALOG KWIKPEN INSULIN) 100 unit/mL [facility], which [facility] in [place]. PH [phone] Patient has been identified by name and birthdate. Duration of symptoms: N/A Person calling: self Call patient at: at home [phone] (home) [phone] (cell) Was an appointment scheduled: No Closing statement: Results or non-symptom based questions: Thank you for calling [facility], your call will be returned within the next business day. Krys East documented in this encounterWilson Health03-12-2025 Telephone encounter Note * Telephone Encounter - Krys Arellano - 08/18/2024 9:20 AM EDT Hoda is calling Kelsy Guillermo DO today to request that insulin lispro (HUMALOG KWIKPEN INSULIN) 100 unit/mL [facility], which [facility] in [place]. [phone] Patient has been identified by name and birthdate. Duration of symptoms: N/A Person calling: self Call patient at: at home [phone] (home) [phone] (cell) Was an appointment scheduled: No Closing statement: Results or non-symptom based questions: Thank you for calling [facility], your call will be returned within the next business day. [facility]03-08-2025 Telephone encounter Note* Telephone Encounter - Kelsy Guillermo DO - 08/14/2024 3:02 PM EST Reviewed BG data- responded as follows: Hector Drummond- I reviewed your BG data- the majority [...] review again next week- thanks! Dr Guillermo [facility]03-08-2025 Miscellaneous Notes* Telephone Encounter - Kelsy Guillermo [...] week- thanks! Dr Guillermo documented in this encounterWilson Health03-04-2025 Telephone encounter Note * Telephone Encounter - Faina Levin MA - 08/10/2024 4:55 PM EST Spoke to patient. Please see mychart encounter. [facility]03-04-2025 Miscellaneous Notes* Telephone Encounter - Faina Levin [...] phone by her side. documented in this encounterWilson Health03-04-2025 Telephone encounter Note * Telephone Encounter - Faina Levin MA - 08/10/2024 4:54 PM EST Spoke to patient and updated her. [facility]03-04-2025 Miscellaneous Notes* Telephone Encounter - Faina Levin [...] 4:02 PM EST Spoke to tech at [facility] and she stated that she spoke to patient on Sunday 08/06 and advised that she has co pays because she has both Medicare and Medicaid. Advised patient that she can sign up for a program through Medicare so she wouldn't have co pays. I was advised that one of the co pays were $2.37. Ayush ran claim while I was phone for [...] KIMMY GESTATIONAL DIABETES 09/20/2024 1:40 PM ENDO [facility] LYDIA ALONZO TC EST KIMMY PATIENT 11/04/2024 11:00 AM ENDO DIAB ED [facility] ALT . Requested Prescriptions Pending Prescriptions Disp [...] - 08/10/2024 1:49 PM EST Spoke to [facility] [place] and they stated that onetouch [facility] and she stated that they did [...] KIMMY GESTATIONAL DIABETES 09/20/2024 1:40 PM ENDO [facility] LYDIA [facility] EST KIMMY PATIENT 11/04/2024 11:00 AM ENDO DIAB ED [facility] ALT . Requested Prescriptions Pending Prescriptions Disp [...] KIMMY GESTATIONAL DIABETES 09/20/2024 1:40 PM ENDO [facility] EST KIMMY PATIENT 11/04/2024 11:00 AM ENDO DIAB ED [facility] . Requested Prescriptions Pending Prescriptions Disp Refills [...] needs scheduled appointment No documented in this encounterWilson Health03-04-2025 Note* Addendum Note - Kelsy Guillermo DO - 08/10/2024 4:35 PM ESTAddended by: KELSY GUILLERMO on: 08/10/2024 04:35 PM Modules accepted: Orders [facility]03-04-2025 Note* Addendum Note - Faina Levin MA - 08/10/2024 4:19 PM ESTAddended by: FAINA LEVIN on: 08/10/2024 04:19 PM Modules accepted: Orders [facility]03-04-2025 Telephone encounter Note* Telephone Encounter - Faina Levin MA - 08/10/2024 4:02 PM EST Spoke to tech at [facility] and she stated that she [...] KIMMY GESTATIONAL DIABETES 09/20/2024 1:40 PM ENDO [facility] EST KIMMY PATIENT 11/04/2024 11:00 AM ENDO DIAB ED [facility] . Requested Prescriptions Pending Prescriptions Disp Refills [...] pool. PSS NOTE: Patient needs scheduled appointment [facility]03-04-2025 Telephone encounter Note* Telephone Encounter - Amada Hills RN - 08/10/2024 3:10 PM EST Faina, the pt thinks she missed your call and wants to speak with you personally, will yo please call her back at the number listed in contacts, she will keep the phone by her side. [facility]03-04-2025 Telephone encounter Note* Telephone Encounter - Faina Levin MA - 08/10/2024 1:49 PM EST Spoke to [facility] and they stated that onetouch prescription was transferred to another [facility] at other [facility] and she stated that they did [...] until 2pm and will call back again. [facility]03-04-2025 Telephone encounter Note* Telephone Encounter - Demetra Morris - 08/10/2024 10:46 AM EST Patient called and states that a prior authorization needs to be done for her blood glucose testingsupplies. Please advise if PA can be started. [facility]03-04-2025 Progress note* Quick Notes - William [...] up in 4 weeks. William Gramajo MD [facility]03-04-2025 Miscellaneous Notes* Quick Notes - William [...] weeks. William Gramajo MD documented in this encounterWilson Health03-04-2025 [facility]-04-[facility] History of Present illness Narrative* Pooja [...] [x] Hemoglobin A1C [x] 10.5 -> 7.9% RN STARS H/O macrosomia in in prior , currently [...] currently sees Dr. Womack, a psychiatrist at [facility] in [place]. Taking Buspar and Prozac. Also sees a therapist Dr. Olmstead at the [facility]. She states that she is able and willing to go to the ER or call crisis if she experiences any suicidal thoughts Medical Decision Making: Problems: Moderate: 2+ stable chronic illnesses Risk: Moderate: Moderate risk from testing/treatment Medical Decision Making Level: 4 - Moderate Pooja Latham MD documented in this encounterWilson Health03-04-2025 Instructions* Patient Instructions* Sundeep Salvador MA - 08/10/2024 8:22 AM EST SEQUENTIAL SCREENINGS The [facility] offers sequential screenings for women who are [...] testing. It will require an appointment withour artificial insemination technician. This is not an ultrasound performed [...] the above symptoms, contact our office at [phone] and ask to speak with anurse. After hours, you can call doctors registry at [phone] OR call [facility] at [phone] ask to have the doctor electric motors salesperson paged. If you consider this an emergency, dial 9-1-9 or go to your nearest emergency department. NEED HELP? Are you dealing with a violent or abusive relationship? Are you a victim of rape or sexual assult? Call [facility] ([place]) 24 hour Crisis Hotline: 583.556.6346 or 009-248-1863. MANUAL Your Guide to a Healthy manual is now on-line. Visit [email or web address] to download your free copy documented in this encounterWilson Health03-02-2025 Telephone encounter Note * Telephone Encounter - [...] review again next week- thanks! Dr Guillermo [facility]03-02-2025 Miscellaneous Notes* Telephone Encounter - Kelsy Guillerom DO - 08/08/2024 2:56 PM EST Reviewed [...] week- thanks! Dr Guillermo documented in this encounterWilson Health02-25-2025 Telephone encounter Note * Telephone Encounter - [...] KIMMY GESTATIONAL DIABETES 09/20/2024 1:40 PM ENDO [facility] EST KIMMY PATIENT 11/04/2024 11:00 AM ENDO DIAB ED [facility] . Requested Prescriptions Pending Prescriptions Disp Refills [...] PSS NOTE: Patient needs scheduled appointment No [facility]02-25-2025 Telephone encounter Note* Telephone Encounter - Faina Levin MA - 08/03/2024 2:27 PM EST Requester: Patient Patients last Endocrinology visit occurred 07/26/24. Follow-up evaluation has been established Upcoming Endocrinology Appointments - Next 365 Days Visit Type Date Time Department EST KMIMY GESTATIONAL DIABETES 09/20/2024 1:40 PM ENDO [facility] EST KIMMY PATIENT 11/04/2024 11:00 AM ENDO DIAB ED [facility] . Requested Prescriptions Pending Prescriptions Disp Refills [...] PSS NOTE: Patient needs scheduled appointment No [facility]02-23-2025 Telephone encounter Note* Telephone Encounter - [...] review again next week- thanks! Dr Guillermo [facility]02-23-2025 Miscellaneous Notes* Telephone Encounter - Kelsy Guillermo [...] week- thanks! Dr Guillermo documented in this encounterWilson Health02-17-2025 Instructions* Patient Instructions* Kelsy Guillermo DO - [...] 7 weeks for f/u. documented in this encounterWilson Health02-17-2025 History of Present illness Narrative* Kelsy Guillermo [...] DM during thatpregnancy- had macrosomia, delivered in [place]. She was initially diagnosed with type 2 [...] 10-IRON FUM-FOLIC ORAL Take by mouth. Insulin Algoma, Disposable, (BD ULTRAFINE III MINI PEN) 31 [...] forward me your blood glucose data weekly ([email or web address])- 3) increase NPH to 80 units [...] which included preparing to see the patient, glyr-eo-mewr patient care, completing clinical documentation, obtaining and/or reviewing separately obtained history, performing a medically appropriate examination, counseling and educating the pat ient/family/caregiver, and ordering medications, tests, or procedures. Kelsy Guillermo DO documented in this encounterWilson Health02-17-2025 [facility]-14-2025 [facility]02-14-[facility] History of Present illness Narrative* William Gramajo MD - 07/23/2024 11:27 AM EST Melissa Byrne is a 29 year old female who presents for problem visit. HPI: Patient presents with concerns over possible herpes outbreak as had a little vulvar irritation. She denies complaints. OB History Gravida3 Para1 Term1 Preterm0 AB1 Living1 SAB1 IAB0 Ectopic0 Multiple0 Live Births1 It Senior Analyst History LMP: 03/13/2024 (Exact Date), Age at Menarche: 13 Age at First : Age at Menopause: It Senior Analyst History Comments: Sexual Activity: Yes; Male Contraception: [...] 10-IRON FUM-FOLIC ORAL Take by mouth. Insulin Algoma, Disposable, (BD ULTRAFINE III MINI PEN) 31 gauge x 3/16 4 times/day Blood-Glucose Sensor (FREESTYLE ZOLTAN 3 PLUS SENSOR) candcie Use as instructed. Change sensors every 14 [...] discussed with the Patient or Patient's Authorized Franchise Business Consultant. As applicable, any other physician, advance practice provider, medical student, or other health professional student that will be observing or involved in the sensitive examination for educational or training purposes was discussed with the Patient or Authorized Franchise Business Consultant. The Patient or Authorized Franchise Business Consultant has agreed to proceed with the sensitive examination. (Sensitive examination includes inspection and/or palpation of the breasts, pelvis, prostate and anorectal regions). EXAM: LMP 03/13/2024 GENERAL: pleasant, female in no apparent distress PELVIC: external genitalia normal, normal Bartholin's glands, urethra, [place]'s glands, no vulvar lesions ASSESSMENT AND PLAN: Assessment & Plan Vulvar irritation Patient reassured or normal vulvar exam and no evidence of HSV outbreak. Follow up for care. Medical Decision Making: Problems: Low: Acute, uncomplicated illness or injury Risk: Low: Low risk from testing/treatment Medical Decision Making Level: 3 - Low William Gramajo MD documented in this encounterWilson Health02-11-2025 Telephone encounter Note * Telephone Encounter - [...] Will review again next week- thanks! KB [facility]02-11-2025 Miscellaneous Notes* Telephone Encounter - Kelsy Guillermo [...] next week- thanks! KB documented in this encounterWilson Health02-10-2025 Telephone encounter Note * Telephone Encounter - [...] Dept Phone 07/26/2024 2:00 PM KELSY GUILLERMO [facility] Lydia Erickson [phone] 08/10/2024 8:00 AM HangtimeI TECH 1 RUBBER TURNER [facility] WSTR MOB [place] [place] [phone] 08/10/2024 8:00 AM RUBBER TURNER MFM WSTR MOB US [place] [phone] 08/10/2024 9:00 AM ELMER POOJA [place] [place] [phone] 08/10/2024 9:10 AM WILLIAM GRAMAJO [place] [phone] 08/24/2024 1:00 PM PAMELA HASKINS [facility] [phone] 08/24/2024 1:00 PM ECHO LAB [facility] [phone] RX INSTRUCTIONS: Respond to pharmacy only and close encounter Carrie Mata MA [facility] Work Phone: 1(861) 666-763702-10-2025 Miscellaneous Notes* Telephone Encounter - Carrie Mata [...] Dept Phone 07/26/2024 2:00 PM KELSY GUILLERMO [facility] Lydia Erickson [phone] 08/10/2024 8:00 AM HangtimeI TECH 1 [facility] WSTR MOB [place] [phone] 08/10/2024 8:00 AM RUBBER TURNER MFM WSTR MOB US [place] [phone] 08/10/2024 9:00 AM POOJA LATHAM [facility] [place] [phone] 08/10/2024 9:10 AM WILLIAM GRAMAJO [place] [place] [phone] 08/24/2024 1:00 PM PAMELA HASKINS [facility] [phone] 08/24/2024 1:00 PM ECHO LAB [facility] [phone] RX INSTRUCTIONS: Respond to pharmacy only and close encounter Carrie Mata MA documented in this encounterWilson Health02-05-2025 Telephone encounter Note * Telephone Encounter - [...] Will review again next week- thanks! KB [facility]02-05-2025 Miscellaneous Notes* Telephone Encounter - Kelsy Guillermo [...] next week- thanks! KB documented in this encounterWilson Health02-04-2025 Progress note* Quick Notes - William Gramajo [...] on aspirin at bedtime William Gramajo MD [facility]02-04-2025 Miscellaneous Notes* Quick Notes - William Gramaoj MD - 07/13/2024 11:33 AM EST KJ - VB No. LOF No. CTXS No. Movement: absent. Other c/o: No. Medication list reviewed. Physical Exam See Flow Sheet Gen: no accute distress, well appearing A/P 17w3d Estimated Date of Delivery: 12/18/24 Early Anatomy US with MFM today DM - managed by Dr.Borst Melvin/corinne preRudi - advised on aspirin at bedtime William Gramajo MD documented in this encounterWilson Health02-04-2025 NoteC[facility]02-04-2025 History of Present illness Narrative* Pooja [...] Monthly growth US testing at 32 weeks RN STARS H/O macrosomia in infant in prior , [...] 13, 2024 10:53 AM documented in this encounterWilson Health02-04-2025 Instructions* Patient Instructions* Juana Terrazas RN - 07/13/2024 9:46 AM EST SEQUENTIAL SCREENINGS The [facility] offers sequential screenings for women who are [...] testing. It will require an appointment withour artificial insemination technician. This is not an ultrasound performed [...] the above symptoms, contact our office at [phone] and ask to speak with anurse. After hours, you can call doctors registry at [phone] OR call [facility] at [phone] ask to have the doctor electric motors salesperson paged. If you consider this an emergency, dial 9-7 or go to your nearest emergency department. NEED HELP? Are you dealing with a violent or abusive relationship? Are you a victim of rape or sexual assult? Call [facility] ([place]) 24 hour Crisis Hotline: 237.451.6586 or 222-501-5247. MANUAL Your Guide to a Healthy manual is now on-line. Visit [email or web address] to download your free copy documented in this encounterWilson Health01-26-2025 Telephone encounter Note * Telephone Encounter - [...] Will review again next week- thanks! KB [facility]01-26-2025 Miscellaneous Notes* Telephone Encounter - Kelsy Guillermo [...] next week- thanks! KB documented in this encounterWilson Health01-24-2025 Telephone encounter Note * Telephone Encounter - William Gramajo MD - 07/02/2024 10:08 AM EST Noted William Gramajo MD [facility] Work Phone: [phone]) 969-283601-24-2025 Miscellaneous Notes* Telephone Encounter - William Gramajo [...] furtheradvice. Charlette Starkey RN documented in this encounterWilson Health01-24-2025 Telephone encounter Note * Telephone Encounter - [...] Only call with furtheradvice. Charlette Starkey RN [facility]01-20-2025 Telephone encounter Note* Telephone Encounter - Keshav Lvoing MD - 06/28/2024 8:49 AM EST Agree with recommendations thanks [facility] Work Phone: 1(256) 560-400601-20-2025 Miscellaneous Notes* Telephone Encounter - Keshav Loving [...] advice. Charlette Starkey RN documented in this encounterWilson Health01-20-2025 Telephone encounter Note * Telephone Encounter - [...] call with further advice. Charlette Starkey RN [facility]01-17-2025 Miscellaneous Notes* Telephone Encounter - Kelsy Guillermo [...] week- thanks! Dr Guillermo documented in this encounterWilson Health01-17-2025 Telephone encounter Note * Telephone Encounter - [...] review again next week- thanks! Dr Guillermo [facility]01-14-2025 Telephone encounter Note* Telephone Encounter - [...] with Primary OB Provider. Ezra Crabtree RN [facility]01-14-2025 Miscellaneous Notes* Telephone Encounter - Ezra [...] Provider. Ezra Crabtree RN documented in this encounterWilson Health01-11-2025 Telephone encounter Note * Telephone Encounter - [...] review again next week- thanks! Dr Guillermo [facility]01-11-2025 Miscellaneous Notes* Telephone Encounter - Kelsy Guillermo [...] week- thanks! Dr Guillermo documented in this encounterWilson Health01-08-2025 History of Present illness Narrative* Carrie Larsen RD - 06/16/2024 10:00 AM EST [facility] Medical Nutrition Therapy Visit Type: Virtual: I have discussed the nature of this visit with the patient which will occur via [facility] (Phone, Virtual Visit) and she agrees to proceed with this interaction. I have communicated my name and active licensure. The patient's identity and physical location wereverified at the time of this visit. Either the patient or their legal personal service representative has been informed of the risks [...] during that - had macrosomia, delivered in [place]. -She was initially diagnosed with type 2 [...] 10-IRON FUM-FOLIC ORAL Take by mouth. Insulin Algoma, Disposable, (BD ULTRAFINE III MINI PEN) 31 [...] 191 lbs Pre- BMI: 34.9 TW lbs [place] of Medicine Weight Gain Recommendations for : [...] Larsen M.S., MEHNAZ, RASHMI documented in this encounterWilson Health01-08-2025 NoteC[facility]01-07-2025 NoteC[facility]01-07-2025 History of Present illness Narrative* Pooja Latham MD - 06/15/2024 1:37 PM EST Images from the original note were not included. Shipping Order Clerk Odell OUTPATIENT VISIT DATE June 15, 2024 OUTPATIENT VISIT TYPE CONSULT REFERRING PROVIDER: Zayda Parker APRN.WRAPPER HAND Recommendations from today's consultation will be conveyed through the electronic medical record. History of Present Illness: 29 year old at 13w3d with Estimated Date of Delivery: 12/18/24 presenting for consultation with Maternal- Medicine at the [facility] in the setting of sub-optimally controlled T2DM [...] around age 12-14. 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 Guillermo. She was last seen in [...] 10-IRON FUM-FOLIC ORAL Take by mouth. Insulin Algoma, Disposable, (BD ULTRAFINE III MINI PEN) 31 [...] shows: - Single, live, intrauterine . - [place] rump length measurement is consistent with the [...] Lymph 1.00 - 4.00 k/uL 2.83 Abs [place] <0.87 k/uL 0.37 Abs Eosin <0.46 k/uL [...] cardiovascular systems. She was counseled that the [place] [employer] recommends an A1c of less [...] [x] 10.5 -> 7.9% Relevant Orders ECHO RN STARS H/O macrosomia in infant in prior , [...] which included preparing to see the patient, hctf-ak-dzhp patient care, completing clinical documentation, counseling and educating the patient/family/caregiver, and communicating results to the patient/family/caregiver. Pooja Latham MD June 15, 2024 3:33 PM documented in this encounterWilson Health01-06-2025 Telephone encounter Note * Telephone Encounter - Kelsy Guillermo DO - 06/14/2024 4:56 PM EST Rx sent KB [facility]01-06-2025 Miscellaneous Notes* Telephone Encounter - Kelsy Guillermo DO - 06/14/2024 4:56 PM EST Rx sent KB documented in this encounterWilson Health01-03-2025 Telephone encounter Note * Telephone Encounter - [...] Will review again next week- thanks! KB [facility]01-03-2025 Miscellaneous Notes* Telephone Encounter - Kelsy Guillermo [...] next week- thanks! KB documented in this encounterWilson Health12-30-2024 Instructions* Patient Instructions* Kelsy Guillermo DO - [...] 8 weeks for f/u. documented in this encounterWilson Health12-30-2024 History of Present illness Narrative* Kelsy Guillermo [...] DM during thatpregnancy- had macrosomia, delivered in [place]. She was initially diagnosed with type 2 [...] third trimester 12/12/2016 12/23/16 - admitted to [place] for glucoregulation, likely will need delivery at 37 weeks - KJ 12/12/2016 She is a Type 2 diabetic and started Insulin during the .Last HGB A1c 6.9 on 11/14/2016.She sees an bindery machine tender, Dr Asif. Her records have been faxed here during the visit and are sent to [address] Gramajo review. TKRN January 14, 2017 EFW is approx 95%. Monitor closely, cons with care elsewhere, antepartum 12/12/2016 12/12/2016Patient is transferring care from [facility]. She states she has moved from [place] to [place] and wishes to be seen here.There is some notations by her previous doctor ofnon-compliance issues with keeping appointments and diabetic diet/Insulin dosages. She states she was seen at the [facility] 11/18 for decreased movement and then again [...] 10-IRON FUM-FOLIC ORAL Take by mouth. Insulin Algoma, Disposable, (BD ULTRAFINE III MINI PEN) 31 gauge x 3/16 4 times/day 150 Each 5 Blood-Glucose Sensor (FREESTYLE ZLOTAN 3 PLUS SENSOR) candice Use as instructed. [...] forward me your blood glucose data weekly ([email or web address])- we will get you CGM (sensor)- [...] which included preparing to see the patient, dasi-cf-jxav patient care, completing clinical documentation, obtaining and/or reviewing separately obtained history, performing a medically appropriate examination, counseling and educating the pat ient/family/caregiver, and ordering medications, tests, or procedures. Kelsy Guillermo DO documented in this encounterWilson Health12-30-2024 NoteCherrington Hospital12-30-2024 NoteHNO ID: [id number] Author: FAINA LEVIN MA Service: ? Author Type: Campus Wellness Coordinator Type: Procedures Filed: 06/07/2024 15:02 Note Text:[facility]12-30-[facility] Procedure note* Faina Levin MA - 06/07/2024 2:14 PM ESTProcedure(s): EXTERNAL OBSTETRIC ASSISTANT, CGM SYS Images from the original note were not included. [facility]12-30-2024 Procedure note* Faina Levin MA - 06/07/2024 2:14 PM ESTProcedure(s): EXTERNAL OBSTETRIC ASSISTANT, CGM SYS Images from the original note were not included. documented in this encounterWilson Health12-28-2024 Telephone encounter Note * Telephone Encounter - [...] are going next week- thanks! Dr Guillermo [facility]12-28-2024 Miscellaneous Notes* Telephone Encounter - Kelsy Guillermo [...] week- thanks! Dr Guillermo documented in this encounterWilson Health12-24-2024 Telephone encounter Note * Telephone Encounter - [...] are going next week- thanks! Dr Guillermo [facility]12-24-2024 Miscellaneous Notes* Telephone Encounter - Kelsy Guillermo [...] week- thanks! Dr Guillermo documented in this encounterWilson Health12-18-2024 Telephone encounter Note * Telephone Encounter - Amelia Rose RN - 05/26/2024 2:28 PM EST A PA for Humalog submitted and was approved. Spoke to patient and advised. She can use the voucher as well. [facility]12-18-2024 Miscellaneous Notes* Telephone Encounter - Amelia Rose [...] Please review and advise. documented in this encounterWilson Health12-18-2024 Telephone encounter Note * Telephone Encounter - [...] get her Humalog. Please review and advise. [facility]12-18-2024 Progress note* Quick Notes - Krys [...] genetic counseling but results no included. Per [facility]. Normal genetic testing Daughter and [...] Unknown. No results found Krys Kulkarni MD [facility]12-18-2024 Miscellaneous Notes* Quick Notes - Krys [...] genetic counseling but results no included. Per [facility]. Normal genetic testing Daughter and [...] found Krys Kulkarni MD documented in this encounterWilson Health12-18-2024 Instructions* Patient Instructions* Gino Wood MA - 05/26/2024 9:50 AM EST SEQUENTIAL SCREENINGS The [facility] offers sequential screenings for women who are [...] testing. It will require an appointment withour artificial insemination technician. This is not an ultrasound performed [...] the above symptoms, contact our office at [phone] and ask to speak with anurse. After hours, you can call doctors registry at [phone] OR call [facility] at [phone] ask to have the doctor electric motors salesperson paged. If you consider this an emergency, dial 1-1-6 or go to your nearest emergency department. NEED HELP? Are you dealing with a violent or abusive relationship? Are you a victim of rape or sexual assult? Call [facility] ([place]) 24 hour Crisis Hotline: 637.589.1218 or 548-267-7366. MANUAL Your Guide to a Healthy manual is now on-line. Visit [facility].org/HealthyPregnancyGuide to download your free copy documented in this encounterWilson Health12-17-2024 Telephone encounter Note * Telephone Encounter - Charlette Starkey RN - 05/25/2024 10:15 AM EST Spoke to patient. She has not vomited since last week. Feeling slightly better and hasn't had that many low blood sugars since calling last week. Appetite still minimal. She is trying to eat small frequent snacks. Aware PA will be submitted for [employer]. Scheduled appt for tomorrow with JG. Charlette Starkey RN [facility]12-17-2024 Miscellaneous Notes* Telephone Encounter - Charlette Starkey [...] advise. Charlette Starkey RN documented in this encounterWilson Health12-13-2024 Hospital Discharge instructions* Discharge Instructions* Reza Dyer DO - 05/21/2024 8:33 PM EST Call OB on Friday for follow-up appointment. * Attachments The following attachments cannot be sent through Care Everywhere. * The Second Month (Iraqi) [facility] Phone: [phone] Emergency department Note* Reza Dyer DO - [...] 05/21/242035 Abdominal pain during in first trimester ([facility]) No data recorded Medical Decision Making Labs Reviewed HUMAN CHORIONIC GONADOTROPIN, SERUM QUANTITATIVE - Abnormal HCG, Beta-Quantitative 67,800 (*) Narrative: Total HCG measurement is performed using the Anson tagWALLET Access Immunoassay which detects intact HCG and free beta HCG subunit. This test is not indicated for use as a tumor marker. HCG testing is performed using a different test methodology at [facility] than other [facility]. Direct result comparison should only be [...] Color, Urine Appearance, Urine Turbid (*) Specific [place], Urine 1.029 pH, Urine 6.0 Protein, Urine [...] Abnormality Status --------- ------ Urinalysis with Reflex C...[[id number]] Abnormal Final result Extra Urine Bolton Tube[[id number]] In process Please view results for these [...] Care: Appropriate for discharge and follow-up with RN STARS. Procedure Procedures Reza Dyer DO 05/21/242036 documented in this [facility] Work Phone: [phone] 982-197512-13-2024 Physician Emergency department Note* Reza Dyer DO [...] 05/21/242035 Abdominal pain during in first trimester ([facility]) No data recorded Medical Decision Making Labs Reviewed HUMAN CHORIONIC GONADOTROPIN, SERUM QUANTITATIVE - Abnormal HCG, Beta-Quantitative 67,800 (*) Narrative: Total HCG measurement is performed using the Anson Seymour Access Immunoassay which detects intact HCG and free beta HCG subunit. This test is not indicated for use as a tumor marker. HCG testing is performed using a different test methodology at [facility] than other [facility]. Direct result comparison should only be [...] Color, Urine Appearance, Urine Turbid (*) Specific [place], Urine 1.029 pH, Urine 6.0 Protein, Urine [...] Abnormality Status --------- ------ Urinalysis with Reflex C...[[id number]] Abnormal Final result Extra Urine Bolton Tube[[id number]] In process Please view results for these [...] Care: Appropriate for discharge and follow-up with RN STARS. Procedure Procedures Reza Dyer DO 05/21/242036 [facility] Work Phone: [phone] Telephone encounter Note* Telephone Encounter - Krys Murcia RN - 05/20/2024 10:00 AM EST Left message for patient to call office. Review below recommendations. RX for Diclegis was sent in today. Received message from pharmacy that this needs Prior Auth. Krys Murcia RN [facility]12-12-2024 Telephone encounter Note* Telephone Encounter - [...] get to there. . Piper Julian MD [facility]12-12-2024 Telephone encounter Note* Telephone Encounter - [...] office too. Please advise. Charlette Starkey RN [facility]12-09-2024 Telephone encounter Note* Telephone Encounter - Amelia Rose RN - 05/17/2024 11:48 AM EST Spoke to patient and advised about insulin taking. No further questions for now. [facility]12-09-2024 Miscellaneous Notes* Telephone Encounter - Amelia Rose RN - 05/17/2024 11:48 AM EST Spoke to patient and advised about insulin taking. No further questions for now. documented in this encounterWilson Health12-09-2024 Telephone encounter Note * Telephone Encounter - Kelsy Guillermo DO - 05/17/2024 11:09 AM EST Reviewed BG data- responded as follows: Hi Hoda - your sensor average is 193 mg/dL. I would recommend that you do the following: increase NPH to 32 units at bedtime increase Humalog to 15 units prior to each meal. Will review again on friday thanks! NILES [facility]12-09-2024 Miscellaneous Notes* Telephone Encounter - Kelsy Guillermo DO - 05/17/2024 11:09 AM EST Reviewed BG data- responded as follows: Hi Hoda - your sensor average is 193 mg/dL. I would recommend that you do the following: increase NPH to 32 units at bedtime increase Humalog to 15 units prior to each meal. Will review again on friday thanks! NILES documented in this encounterWilson Health12-03-[facility] note* Ana Sawyer MSW - 05/11/2024 4:09 PM EST Leeanne met with patient to review social service needs and social service assistance options. Patient notes that she signed up for WIC. Patient also notes signing up for PIPP and [employer] Housing voucher. Patient notes that she is attending parenting classes through [facility]. Sw and patient also discussed reaching out to 180 for help with housing options. Patient reports that where she lives in [place] does not allow for children. Sw called [...] security statements. Patient and Sw also discussed Signadyne as well at [facility]. Sw wrote down [place]'s address and [facility] address and contact info for patient. Patient also noted that [facility]. Patient has this direct number for any further assistance needs. Patient also noted that when she left this office that she would go down to 180 and see what housing supportive service resources they may be able to offer. [facility]12-03-2024 Procedure note* Ana Sawyer MSW - 05/11/2024 4:09 PM EST Sw met with patient to review social service needs and social service assistance options. Patient notes that she signed up for WIC. Patient also notes signing up for PIPP and [employer] Housing voucher. Patient notes that she is attending parenting classes through [facility]. Sw and patient also discussed reaching out to 180 for help with housing options. Patient reports that where she lives in [place] does not allow for children. Sw called [...] security statements. Patient and Sw also discussed Signadyne as well at [facility]. Sw wrote down [place]'s address and [address] address and contact info for patient. Patient also noted that she sees counselor [facility]. Patient has this direct number for any further assistance needs. Patient also noted that when she left this office that she would go down to 180 and see what housing supportive service resources they may be able to offer. documented in this encounterWilson Health12-01-2024 Telephone encounter Note * Telephone Encounter - [...] please forward your BG data again friday thanks Dr Guillermo [facility]12-01-2024 Miscellaneous Notes* Telephone Encounter - Kelsy Guillermo [...] AM thanks Dr Guillermo documented in this encounterWilson Health11-29-2024 Note* Addendum Note - Zayda Parker APRN.CNP - 05/07/2024 10:36 AM ESTAddended by: ZAYDA PARKER on: 05/07/2024 10:36 AM Modules accepted: Orders [facility]11-29-2024 Miscellaneous Notes* Addendum Note - Zayda Parker APRN.CNP - 05/07/2024 10:36 AM ESTAddended by: ZAYDA PARKER on: 05/07/2024 10:36 AM Modules accepted: Orders * Addendum Note - Sundeep Salvador MA - 05/07/2024 10:25 AM ESTAddended by: SUNDEEP SALVADOR on: 05/07/2024 10:25 AM Modules accepted: Orders documented in this encounterWilson Health11-29-2024 Note* Addendum Note - Sundeep Salvador MA - 05/07/2024 10:25 AM ESTAddended by: SUNDEEP SALVADOR on: 05/07/2024 10:25 AM Modules accepted: Orders [facility]11-29-2024 Instructions* Patient Instructions* Zayda Parker APRN.CNP - 05/07/2024 9:01 AM EST Images from the original note were not included. Please select the following link to access the [facility] Your Guide to a Healthy . www.Ccf.org/healthypregnancyguide MORNING SICKNESS IN by Estela Villa M.D. for Thrupoint As you may already know, morning sickness can often be more appropriately called evening sickness or ojoim-pwnqwy-hg-the-day sickness. While there are the arabella few, [...] medication called Bendectin was available in the -s and was shown to be safe in [...] medication, Doxylamine, is currently marketed as an hmnv-mjq-wkqpozw sleeping pill. Ask your practitioner if creating a vitamin B6/Doxylaminecombination with vair-wne-bljcvbj medications would be safe for you. Prescription [...] as Phenergan, Compazine, Reglan Psychotherapy Services at [facility] Call Behavioral Health Access Line at [phone] to schedule Individual psychotherapy In-person or virtual Wait time for first evaluation may be 12 or more weeks. Wait list spots may be available. Due to the high volume of patients this option is recommended if you are looking for short term acute symptomcoping strategies. 7-219-7-DLPI7IPZW - [facility] Mental Health Hotline If you are in suicidal crisis, please call or text 4-643-413-TALK ( ) or visit the National Suicide Prevention Lifeline website. mchb.[facility].gov If you are in crisis, call 481 or go to your nearest Emergency Department Here are some links for wonderful Providers here in the community and surrounding areas. Do not hesitate to contact their offices, many are offering virtual visits during this time. Psychotherapy Services outside of [facility] Support International Online Provider Directory https://eÇift.Repka.com/ - can assist in finding providers in your area that might be more extensive then the list below. [facility] [place], [place] [address] [place] [address] [address] [facility] [address] [place] [address] [facility] [address] [place] [address] Karen Kaur MD [address] [place], [place] [address] [facility] [address] [facility], [address] [place] [address] [facility] Psychiatric Services [facility] [place] [address] [facility] Counseling Services [place] / [place] [phone]/ [phone] Nancy Saba [address] [facility] [phone] Robinson of Counseling and Mediation [place] / Gaby [phone] Behavioral [facility] services of [facility] [address] [place] [address]/ je[facility] river [phone] Mike Choudhary, ANASTASIA, CLC Bump and Beyond Family Therapy Workshops, telehealth and at home visits. [phone] [facility] counseling hessel 20 locations [employer], [place], [place], [place], [place], [place], [place], [facility], [place], [place], [place], [place], [place], [place], [facility], [place], [place] ,[facility], [place], [place],[facility], [facility], [place], [facility], [facility], Pratik www.Thorne Holding [phone] Psychotherapy resources outside of [facility] are listed below MoneyReef Psychotherapy Web: https://www.get2play/ Support International Online Provider Directory https://PrecisionHawk/ Insight [facility] https://U.S. Nursing Corporation/ ZingCheckout for Behavioral Health and Wellness Web: https://Reflexion Health/ [place] [employer] [facility] for Effective Living Web: https://www.Ingenicliving.Repka.com/ LifeStance Web: https://The New Music Movement.Repka.com/location/[facility]/[place]/ [facility] Web: https://www.signatureminers' [facility].org/ [facility] Web: https://Symcat.org/ Recovery Resources Mental health and substance abuse help Web: https://www.ufindads.SafedoX & RESOURCES Support International Direct peer support and connection to professional resources Non-Emergency Helpline Phone: / Text: [phone] Web: https://www..net/ Online Provider Directory: https://PrecisionHawk/ Online Support Meetings: https://www..net/get-help/tfy-kxobvs-yjiworo-meetings/ ARON Baby and Thread Spooler Services Web: https://Pick a Student/ MotherCymphonix Expert information on medication use during and Text: [phone] Web: https://BroadClip/ NATIONAL REGISTRY FOR PSYCHIATRIC MEDICATIONS Currently studying the safety of antidepressants, ADHD medications and atypical antipsychotics taken during TO PARTICIPATE CALL TOLL-FREE: Web: https://womensmentalhealth.org/research/pregnancyregistry/ Support Groups: [facility]- Follow on facebook Baby Bistro support group led by [facility] department Resilient Mamas - Support Group [facility].org The POEM support group [phone] Www.poMakers Alleyonline.org Follow on facebook - DEDRICK rivers Online support meetings PSI https://www..net/get-help/nrd-dtpxyt-btgrvby-meetings/ [facility] mommy and me virtual support group 11:30-1pm Support for mothers and new babies and toddlers [place] childbirth education: Childbirth @cc.org or call [phone] CRISIS: CRISIS HOTLINE [phone], 911 or go to the nearest [facility] [phone] / [facility] [phone] https://www.nicholas [facility] noyes memorial hospitalrb.org Crisis text line text the word HOME to 533688 [facility] [address] [facility] [address] www.NovelMed TherapeuticsjasonMoneyReef Brigitte Kwan clinical counseling [address] [address] www.Baidu [phone] Holding space psychotherapy [place]icruz No BULK TANK CAR UNLOADER JENNIFER-S [address] [facility] www.Barnana [phone]/ [place] [phone] They all offer virtual. All work with trauma Support groups Online support meetings PSI https://www..net/get-help/fxh-mkidve-dbmuukb-meetings/ Here are the support groups they offer: Support of parents of 1 to 4 years old children POEM ( Outreach and Encouragement for Moms) offers free support for mothers experiencing depression, anxiety, and other mood and anxiety disorders. Masks are recommended but not required. No pre-registration required. Babies in arms welcome. meetings now take place on the and Friday of each month Location: [facility] [address] [place] [address] Room 122 (library room) 7-8:00 p.m. When you enter the [facility] parking lot off of [address] the entrance door closest to our meeting room is on the front of the building toward the right. For those who are more comfortable with a virtual platform, POEM offers online support group options several days of the week. To register for an online group or to find out more about POEM, website at: https://mhaohio.org/get-help/otvwklxa-zuitlm-yfccuo/poem-services/ offer a confidential helpline: private Facebook group is called DEDRICK [facility] Here are the groups they offer: Traumatic childbirth resources: Http://pattch.org/ https://www.VIA PharmaceuticalsjassonDDRdrivevalentina.Repka.com/ Name Location (s) Phone # (s) Services Website Holding BABL Media Psychotherapy [address] [place], [place] - [phone]; [address] [phone] In-Person GROUPS INDIVIDUAL THERAPY MATERNAL- MENTAL HEALTH MEDICATION MANAGEMENT PLAY AND ART THERAPY TELETHERAPY https://www.get2play/services/ [facility]? [address] [place], [place] [address] ? [address] [place], [place] [address] ? WINTERS [address] [place], [place] [address]? Grief Support Groups Individual Grief Counseling Spiritual Care Memorial Events https://mobile.[facility].org/grief-services [facility] [address] [place], [place] [address]; ; Email: [email or web address] Women's Mental Health; Couples Counseling; Trauma (EMDR); Stress Management; Mood and Anxiety Related Disorders- and much more https://www.The FarmerycoBirch Tree Medical/ LifeStance Numerous as they have contract providers: access website to find specific providers nearyou Counseling including CBT and EMDR as well as many more modalities; Medication Management; Telehealth and In-Person https://FoxyTunes/ Trunity [facility] [address] [place] [address]; [phone] Personal, Family and Group Therapy; Psychological Testing and Diagnosis; Medication Management; Life and Career Coaching; Psychoanalysis; Literacy Testing; Yoga and Meditation https://Reflexion Health/ Fit Mind [place] [address] [facility] [address], [place] [address] [address] ; [address] [place] [address], [address] [place] [address]; Office # for both sites: Individual and Couples Counseling https://www.Voice Assist.Repka.com/paymentinsurance.html OCD & Anxiety [facility] [address] [facility], [address], [place] [address]; Specialize in Cognitive-Behavioral Therapy (CBT) for the treatment of anxiety disorders across the lifespan. TELEHEALTH ONLY. https://ocdandanxietycentBoomset/faqs [facility] [address] [facility]th [place], [address] [place] [address] [facility] [place], [address] [place] [address] [place], [address] [place] [address] [place], [address], [address] [place] [address] [place], [address] [place] [address] [place], [place], [address] Transportation Services To minimize patient barriers, Health System provides transportation services to patients who qualify. If you are unable to get to your appointment at any of our facilities, please let us know. Need help now? Stop by one of our walk-in clinics to establish behavioral health care. Counseling Indvidual, Group, Couples and Family Counseling and EMDR. Medication Management Case Management benefits applications housing assistance Substance abuse treatment Medication assisted treatment https://www.[facility].org/mental-health/ [facility] OFFICE AT [facility] [address] [place] [address] [facility] OFFICE [address] [place] [address] [facility] OFFICE [address] [place] [address] TO OFFICE (at [facility]) [address] [place] [address] [facility] EXCHANGE PROGRAM & HIV SCREENING [address] [place] [address] [place] EXCHANGE PROGRAM [address] [place] [address] Behavioral Health Urgent Care: [facility] & [facility] Counseling Indvidual and Group Medication Management Case Management benefits applications housing assistance Substance abuse treatment Medication assisted treatment Employment Services/ Job Training https://theDataCoupio.org/ Recovery Resources [address] [place], [place] [address]: P: [phone] [address] [place] [facility] [address], [place] [address] P: [phone] Our services include: Addiction Mental Health Treatment Assessment Psychiatry Medical Care Employment Housing Drug and Alcohol Prevention HIV/AIDS Prevention https://www.recres.org/ [facility] [place] [address] [place] [id number] [address] [place], [place] [address] [place] [address] [place] [address] [facility] [address] [place] [address] [address] [place] [address] TMS Therapy/ Counseling Psychocological Testing for ADHD Medication Management In-Person/ Telemedicine https://www.BioLight Israeli Life Sciences Investments Ltd.com/patients-depression Memory & Psychological services [address] [address], [place] [address] Neuropsychological Testing For ADHD https://www.memoryandpsych.com/ [facility] Office [address] [place], [place] [address] [address] [id number] [address] [id number] Providing ufnh-pt-ozoo and telehealth services. Adult Case Management Community Education and Prevention Employment Outpatient Treatment - Counseling & Psychotherapy Psychiatric Services http://www.ccc.org/ [facility] [address] [address] Misty [facility]) [address] [place] [address] Virtual Appointments! Now offering safe and convenient virtual client appointments to anyone in [place]! Individual Therapy Couples/Relationship Therapy Trauma/EMDR Therapy Art Therapy Play Therapy Plant Sciences Professor Support: Parenting Skills, Parent Child Interaction Therapy, Parent Infant Interaction Therapy Meditation Dietitian/Rolled Materials Worker Services Group Therapy Yoga https://www.SolarReserve.Repka.com/ Nohemy Stokes [phone] Private Practice: Telehealth Only Specializes in EMDR [...] or smoking cessation program, such as the [facility] Smoking Cessation Program. For more information, please [...] smoke. (This information is provided by the [facility] and is not intended to replace the medical advice of your doctor or health care provider. Please consult your health care provider for advice about a specific medical condition. For additional written health information, please call the Cancer Answer Line at [facility] Friday - Friday 8-4:30 for assistance: [phone]. Or visitwww.[facility].org/health/) From [facility]'s Tobacco Cessation website: Our comprehensive smoking [...] us at your earliest convenience by calling [phone]. One of our friendly team members will be happy to help you with your financial plan. Contact [phone] for more information. [place] Tobacco Program Visit https://[place].quitlogix.org/en-US/ or call 0-533-NRIA-NOW documented in this encounterWilson Health11-26-2024 History of Present illness Narrative* Jamari Byrne [...] with other nicotine-induced disorder documented in this [facility] Work Phone: 1(229) 766-462211-25-2024 Nurse Note* Amelia Rose RN - 05/03/2024 [...] Time spent on patient education: 35 minutes. [facility]11-25-2024 Nurse Note* Amelia Rose RN - [...] device upload, data review, and data sharing: LoopNetk -Other topics taught: OK to shower/bathe, avoid [...] patient education: 35 minutes. documented in this encounterWilson Health11-25-2024 Instructions* Patient Instructions* Radha, Kelsy L, DO - 05/03/2024 2:42 PM EST 1) check your sugars fasting (60-90 mg/dL) and 2 hours post meal (less than 120 mg/dL) 2) forward me your blood glucose data weekly ([email or web address])- we will get you CGM (sensor)- you should write your numbers down fasting, and 2 hour post meal- and send me these data each friday. 3) stop Lantus- start NPH as follows: NPH 15 units at bedtime Humalog 6 units prior to each meal. 4) see carpenter assistant (Carrie Larsen) virtual visit 5) see me in 4 weeks (virtual visit) documented in this encounterWilson Health11-25-2024 [facility]24 History of Present illness Narrative* Kelsy [...] during that - had macrosomia, delivered in [place]. She was initially diagnosed with type 2 [...] third trimester 12/12/2016 12/23/16 - admitted to [place] for glucoregulation, likely will need delivery at 37 weeks - KJ 12/12/2016 She is a Type 2 diabetic and started Insulin during the .Last HGB A1c 6.9 on 11/14/2016.She sees an bindery machine tender, Dr Asif. Her records have been faxed here during the visit and are sent to [address] Gramajo review. TKRN January 14, 2017 EFW is approx 95%. Monitor closely, cons with care elsewhere, antepartum 12/12/2016 12/12/2016Patient is transferring care from [facility]. She states she has moved from [place] to [place] and wishes to be seen here.There is some notations by her previous doctor ofnon-compliance issues with keeping appointments and diabetic diet/Insulin dosages. She states she was seen at the [facility] 11/18 for decreased movement and then again [...] forward me your blood glucose data weekly ([email or web address])- we will get you CGM (sensor)- you should write your numbers down fasting, and 2 hour post meal- and send me these data each friday. 3) stop Lantus- start NPH as follows: NPH 15 units at bedtime Humalog 6 units prior to each meal. 4) see carpenter assistant (Carrie Larsen) virtual visit 5) see me [...] which included preparing to see the patient, [id number] patient care, completing clinical documentation, obtaining and/or reviewing separately obtained history, performing a medically appropriate examination, counseling and educating the pat ient/family/caregiver, and ordering medications, tests, or procedures. Kelsy Guillermo DO documented in this encounterWilson Health11-25-2024 Telephone encounter Note * Telephone Encounter - [...] currently sees Dr. Womack, a psychiatrist at [facility]. States that she recently had an appointment with him and has an upcoming appointment inJanuary. Patient states he is aware that she is and has discussed psychiatric medications during . Also sees a therapist Dr. Olmstead at the [facility]. Her next ap pointment there is May [...] FYI. Call back only if further advice [facility]11-25-2024 Miscellaneous Notes* Telephone Encounter - Brenda Lares [...] currently sees Dr. Womack, a psychiatrist at [facility]. States that she recently had an appointment with him and has an upcoming appointment inJanuary. Patient states he is aware that she is and has discussed psychiatric medications during . Also sees a therapist Dr. Olmstead at the [facility]. Her next ap pointment there is May [...] only if further advice documented in this encounterWilson Health11-25-2024 Telephone encounter Note * Telephone Encounter - Ana Sawyer MSW - 05/03/2024 10:54 AM EST Sw spoke with patient and set up appt for patient to come in to the office and see Sw on 05/11 @12:30 to review social service programs in the community. Patient will come to see Leeanne at her office at [facility]. [facility]11-25-2024 Miscellaneous Notes* Telephone Encounter - Ana Sawyer MSW - 05/03/2024 10:54 AM EST Sw spoke with patient and set up appt for patient to come in to the office and see Sw on 05/11 @12:30 to review social service programs in the community. Patient will come to see Leeanne at her office at [facility]. documented in this encounterWilson Health11-25-2024 NoteC[facility]11-25-2024 History of Present illness Narrative* Zayda Parker APRN.RYEES - 05/03/2024 10:13 AM EST Images from the original note were not included. Circular Knitter offered: Patient declines. INITIAL OB ASSESSMENT HPI: Melissa is a 29 year old White here to establish Obstetrical Care. Patient's last menstrual period was 03/13/2024 (exact date). from OB Dating Form. was unplanned but accepted, plans on keeping Complaints: (!) Pain on urination - resolved (treated for UTI and HSV outbreak 04/18/2024 at [facility]) OB History T1 L1 [...] harming myself has occurred to me. Never Columbia Depression Scale Total 19 Feeling nervous, anxious [...] third trimester 12/12/2016 12/23/16 - admitted to [place] for glucoregulation, likely will need delivery at 37 weeks - KJ 12/12/2016 She is a Type 2 diabetic and started Insulin during the .Last HGB A1c 6.9 on 11/14/2016.She sees an bindery machine tender, Dr Asif. Her records have been faxed here during the visit and are sent to [address] Gramajo review. TKRN January 14, 2017 EFW is approx 95%. Monitor closely, cons with care elsewhere, antepartum 12/12/2016 12/12/2016Patient is transferring care from [facility]. She states she has moved from [place] to [place] and wishes to be seen here.There is some notations by her previous doctor ofnon-compliance issues with keeping appointments and diabetic diet/Insulin dosages. She states she was seen at the [facility] 11/18 for decreased movement and then again [...] to each meal. 5 Each 11 Insulin [place], Disposable, (BD ULTRAFINE III MINI PEN) 31 gauge x 3/16 4 times/day 150 Each 5 Blood-Glucose Sensor (blinkbox musicSTYLE ZOLTAN 3 PLUS SENSOR) candice Use as [...] discussed with the Patient or Patient's Authorized Franchise Business Consultant. As applicable, any other physician, advance practice provider, medical student, or other health professional student that will be observing or involved in the sensitive examination for educational or training purposes was discussed with the Patient or Authorized Franchise Business Consultant. The Patient or Authorized Franchise Business Consultant has agreed to proceed with the sensitive [...] medications? Yes Pt states she abuse ETOH [id number] In the past month have you drunk [...] plus performing a brief intervention. Zayda Parker APRN.WRAPPER HAND ASSESSMENT: 29 year old at 7w6d wks gestational age PLAN: 1) Patient oriented to practice. Patient given new OB orientation folder. Discussed nutrition, folic acid supplementation, dietary guidelines, exercise, smoking, alcohol, caffeine, and drug use. Discussed gestational weight gain guidelines. Discussed routine OB labs including STD/HIV. Discussed how to access Your guide to a health and the Rn Critical Care. Discussed hemoglobin electrophoresis. Patient: Declines Reviewed midwifery and biologics specialist services that are available. 2) Screening: Hemoglobin [...] weeks): [] Consent [] Contraception - [] Shop Mechanic Third trimester (36-40 weeks): [] GBS [] Presentation - [] Scheduled [] yes - Hibiclens, pre-op instructions, CBC, T&S ordered [] no [] H&P Pre-Existing Type 2 Diabetes Mellitus in in First Trimester - 05/07/2024 Comment: May 07, 2024 Hemoglobin A1C 10.5 on 05/03 Uncontrolled. Under care of Dr. Guillermo - ambelry on 05/03/24 6 units of Humalog prior to meals 15 units of NPH at bedtime Planning for carpenter assistant visit with Carrie Larsen Echo [] EKG [] Eye Exam [x] CMP [x] Hemoglobin A1C [x] 10.5 MFM consult placed. Unplanned - 05/07/2024 Comment: May 07, 2024 Patient states this is an unplanned . Patient unsure of paternity of baby. She states it could be her live-in boyfriend or her ex-. She plans on keeping the baby. Zayda Parker APRN.WRAPPER HAND Obesity Affecting in First Trimester - 05/07/2024 Comment: May 07, 2024 Pre BMI 31 Zayda Parker APRN.WRAPPER HAND History of Herpes Genitalis - 05/07/2024 Comment: Treated for HSV outbreak 04/18/2024 at [facility]. Plan for suppression therapy at 36 weeks. To notify with outbreaks. Zayda Parker APRN.WRAPPER HAND H/O Macrosomia in in Prior , Currently - 05/07/2024 Comment: May 07, 2024 10 lb 2oz at 37w4d Zayda Parker APRN.WRAPPER HAND History of Polyhydramnios - 05/07/2024 Comment: 2017 delivery. Zayda Parker APRN.WRAPPER HAND History of Bipolar Disorder - 05/07/2024 History of Depression - 12/12/2016 Comment: May 07, 2024 Has history of bipolar depression diagnosed in 2014. She currently sees Dr. Womack, a psychiatrist at [facility] in [place]. States that she recently had an appointment with him and has an upcoming appointment in June. Patient states he is aware that she is and has discussed psychiatric medications during . Taking Buspar and Prozac. Also sees a therapist Dr. Olmstead at the [facility]. Her next appointment there is May 10. [...] encouraged. Plans to quit this weekend. Zayda Parkre APRN.CNP I spent 5 minutes counseling on risks, providing resources, and recommending smoking cessation. Zayda Parker APRN.CNP History of Alcohol Abuse - 05/07/2024 Comment: May 07, 2024 Patient states that she did abuse alcohol from [id number]. Denies any alcohol use this . Zayda [...] States her daughter has autism Zayda Parker APRN.CNP Nausea and Vomiting During - 05/07/2024 Comment: 05/07/24 Vitamin B6 and Unisom doses reviewed. To notify if prescription is needed. Zayda Parker APRN.CNP Uti (Urinary Tract Infection) in , Antepartum - 04/19/2024 Comment: April 19, 2024 Diagnosed in ER 04/18/24. Plan to rescreen. Zayda Parker APRN.CNP Follow up in 4 weeks or sooner prn. Plan for NT scan between 12w0d and 13w6d gestation. MFM consult placed. Zayda Parker APRN.CNP documented in this encounterWilson Health11-22-2024 Telephone encounter Note * Telephone Encounter - Tee Li RN - 04/30/2024 11:10 AM EST Reason for Call: Patient seeking care advice for elevated blood glucose, is , and she is not scheduled to see Endocrinology or OB until next week. Patient confirmed her [facility] PCP is currently managing her diabetes. Outcome: [...] day Protocols used: Diabetes - High Blood Ndbst-MXMPN-RX [facility]11-22-2024 Miscellaneous Notes* Telephone Encounter - Tee Li RN - 04/30/2024 11:10 AM EST Reason for Call: Patient seeking care advice for elevated blood glucose, is , and she is not scheduled to see Endocrinology or OB until next week. Patient confirmed her [facility] PCP is currently managing her diabetes. Outcome: Patient confirmed she will send message and/or call PCP office today to [facility] and make them aware that she stopped [...] day Protocols used: Diabetes - High Blood Mygqf-RIJPN-HY documented in this encounterWilson Health11-20-2024 History of Present illness Narrative* Joanie Hurtado APRN-REYES - 04/28/2024 8:40 AM EST Subjective Patient [...] scheduled to see her OB through the [facility] in May, has a ultrasound scheduled in [place] next week on May 03 and is scheduled to see her primary care provider Dr. Byrne on May 04. She will report effectiveness of medication to Dr. Byrne on her visit. She reports no signs or symptoms of complication at this time. No vaginalbleeding, abdominal or back pain. She did state that around the 3-week gestation phase she had an ultrasound at [facility] which did not detect but showed [...] days Less than 8 weeks gestation of ([facility]) documented in this encounterMemorial [facility] Work Phone: 1(616) 308-853411-15-2024 Telephone encounter Note* Telephone Encounter - Sis [...] advising patient to email Dr. Ca at [email or web address]. [facility]11-15-2024 Miscellaneous Notes* Telephone Encounter - Sis Vargas [...] advising patient to email Dr. Ca at [email or web address]. documented in this encounterWilson Health11-11-2024 Telephone encounter Note * Telephone Encounter - Zayda Parker APRN.CNP - 04/19/2024 8:43 AM EST Noted. Zayda Parker APRN.CNP [facility]11-11-2024 Miscellaneous Notes* Telephone Encounter - Zayda Parker APRN.CNP - 04/19/2024 8:43 AM EST Noted. Zayda Parker APRN.CNP * Telephone Encounter - Krys Murcia RN - 04/19/2024 8:37 AM EST LMP 10/5 Approximately 5w2d. Patient seen at ER yesterday. She was diagnosed with HSV outbreak and UTI. She was prescribed Keflex and Acyclovir. Wanted our office to be aware before her 05/07 NOB with EH. Krys Murcia RN documented in this encounterWilson Health11-11-2024 Telephone encounter Note * Telephone Encounter - Krys Murcia RN - 04/19/2024 8:37 AM EST LMP 10/ Approximately 5w2d. Patient seen at ER yesterday. She was diagnosed with HSV outbreak and UTI. She was prescribed Keflex and Acyclovir. Wanted our office to be aware before her 05/07 NOB with EH. Krys Murcia RN [facility]11-10-2024 Emergency department Note* Angy Staples Guera, PROMOTIONAL MODEL-WRAPPER HAND - 04/18/2024 6:44 PM EST Chief Complaint [...] and concern for . Reports LMP 03/13/24. [id number]. She has been experiencing thin white discharge [...] Urine Yellow Appearance, Urine Turbid (*) Specific [place], Urine 1.048 (*) pH, Urine 6.0 Protein, [...] performed using a different test methodology at [facility] than other [facility]. Direct result comparison should only be made within the same method. C. TRACHOMATIS + N. GONORRHOEAE, AMPLIFIED - Normal Neisseria gonorrhea,Amplified Not Detected Chlamydia trachomatis, Amplified Not Detected URINE CULTURE URINALYSIS WITH REFLEX CULTURE AND MICROSCOPIC Narrative: The following orders were created for panel order Urinalysis with Reflex Culture and Microscopic. Procedure Abnormality Status --------- ------ Urinalysis with Reflex C...[[id number]] Abnormal Final result Extra Urine Bolton Tube[[id number]] Please view results for these tests on [...] outbreak RORY Patel 04/18/242139 documented in this [facility] Work Phone: 1(184) 769-910711-10-2024 Physician Emergency department Note* RORY Patel - [...] and concern for . Reports LMP 03/13/24. [id number]. She has been experiencing thin white discharge [...] Urine Yellow Appearance, Urine Turbid (*) Specific [place], Urine 1.048 (*) pH, Urine 6.0 Protein, [...] HCG measurement is performed using the Anson Seymour Access Immunoassay which detects intact HCG and free beta HCG subunit. This test is not indicated for use as a tumor marker. HCG testing is performed using a different test methodology at [facility] than other [facility]. Direct result comparison should only be made within the same method. C. TRACHOMATIS + N. GONORRHOEAE, AMPLIFIED - Normal Neisseria gonorrhea,Amplified Not Detected Chlamydia trachomatis, Amplified Not Detected URINE CULTURE URINALYSIS WITH REFLEX CULTURE AND MICROSCOPIC Narrative: The following orders were created for panel order Urinalysis with Reflex Culture and Microscopic. Procedure Abnormality Status --------- ------ Urinalysis with Reflex C...[[id number]] Abnormal Final result Extra Urine Bolton Tube[[id number]] Please view results for these tests on [...] trimester #2 herpes simplex outbreak RORY Patel 04/18/240 [facility] Work Phone: 1(702) 136-390311-07-2024 Telephone encounter Note* Telephone Encounter - Julia Cardona RN - 04/15/2024 3:52 PM EST Patient has appt - closing encounter. Julia Cardona RN [facility]11-07-2024 Miscellaneous Notes* Telephone Encounter - Julia Cardona [...] Pelvic pain? Was seen in ED in [facility] yesterday for sharp left sided [...] to: self Call patient at: at home [phone] (home) [phone] (cell) Payor: [employer]ICARE / Plan: [facility] MEDICARE / Product Type: Medicare / Paulo Hodges documented in this encounterWilson Health11-07-2024 Telephone encounter Note * Telephone Encounter - Idania Murphy RN - 04/15/2024 2:00 PM EST Left message to call office. PSS: Please attempt to call patient also to schedule New OB. Thank you. Idania Murphy RN [facility]11-07-2024 Telephone encounter Note* Telephone Encounter - Julia Cardona RN - 04/15/2024 11:03 AM EST Name and identified. LMP? 03/13/24 4w5d When did you have a + test? This week PNV? Not yet Pelvic pain? Was seen in ED in [facility] yesterday for sharp left sided [...] schedulers in this office. Julia Cardona RN [facility]11-07-2024 NoteDischarge Instructions Discharge Summary [facility] [address] [place] [address] [phone] 04/14/2024 Patient: MELISSA KAUR Sex: Female : 1995 Age: 29y Thank you for visiting [facility]. You have been evaluated today by [...] by patient. Follow-up with: Channing Nixon MD, [facility], [facility], , [address] [place] [address]. Follow up in four days even if well. Call for an appointment. Reason for referral: evaluation and treatment. Summary of care provided to patient. Jon Calvert MD, [place] [facility], Phone: [phone], [address] [place] [address]. Follow up in four days even if well. Call for an appointment. Reason for referral: evaluation and treatment. Summary of care provided to patient. 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 [place] [address] [phone] 04/14/2024 Patient: MELISSA KAUR Sex: Female : 1995 Age: 29y Thank you for visiting [facility]. You have been evaluated today by [...] by patient. Follow-up with: Channing Nixon MD, [facility], [facility], , [address] [place] [address]. Follow up in four days even if well. Call for an appointment. Reason for referral: evaluation and treatment. Summary of care provided to patient. Jon Calvert MD, [place] [facility], Phone: [phone], [address] [place], [place] 2 of 5 Discharge Instructions [id number]. Follow up in four days even if [...] Stay away from alc (more content not included)...[facility] 04-14-2024 Telephone encounter Note* Telephone Encounter - Julia Cardona RN - 04/14/2024 8:34 AM EST Call placed to patient to triage for new OB appt. Left message for patient to call back Julia Cardona RN [facility]11-06-2024 Telephone encounter Note* Telephone Encounter - Julia [...] to: self Call patient at: at home [phone] (home) [phone] (cell) Payor: [employer]ARE / Plan: [employer]ICARE / Product Type: Medicare / Paulo Hodges [facility]08-16-2024 History of Present illness Narrative* Jamari [...] 4 bidac Has had upper teeth pulled May 2 Will be getting dentures soon possibly [...] lipoidica F/u 3 months documented in this [facility] Work Phone: 1(440) 331-808207-18-2024 History of Present illness Narrative* Jamari Byrne [...] 4 times per day documented in this encounterMemorial [facility] Work Phone: 1([phone]) 785-537004-08-2024 History of Present illness Narrative* Jamari Byrne [...] 10 days transmitter good for 90 days Surgical Elastic Knitter used instead of smart phone Trulicity 1.5 [...] minutes after Hyperglycemia due to diabetes mellitus ([facility]) - metFORMIN (Glucophage) 1,000 mg tablet; Take 1 tablet (1,000 mg) by mouth 2 times a day. - glipiZIDE (Glucotrol) 5 mg tablet; Take 1 tablet (5 mg) by mouth 2 times a day. Exercise-induced asthma - albuterol 90 mcg/actuation inhaler; INHALE 1 TO 2 PUFFS EVERY 6 HOURS NEEDED documented in this [facility] Work Phone: 1(282) 446-806203-12-2024 History of Present illness Narrative* Mary Blackwell PA - 08/19/2023 10:20 AM EDT This note was created using WordStreamriter. Subjective Melissa Kaur is a 28 year [...] third trimester 12/12/2016 12/23/16 - admitted to [place] for glucoregulation, likely will need delivery at 37 weeks - KJ 12/12/2016 She is a Type 2 diabetic and started Insulin during the .Last HGB A1c 6.9 on 11/14/2016.She sees an bindery machine tender, Dr Asif. Her records have been faxed here during the visit and are sent to [address] Gramajo review. TKRN January 14, 2017 EFW is approx 95%. Monitor closely, cons with care elsewhere, antepartum 12/12/2016 12/12/2016Patient is [facility]. She states she has moved from [place] to [place] and wishes to be seen here.There is some notations by her previous doctor ofnon-compliance issues with keeping appointments and diabetic diet/Insulin dosages. She states she was seen at the [facility] 11/18 for decreased movement and then again [...] ER evaluation. BUDDY Mendoza documented in this encounterWilson Health02-01-2024 History of Present illness Narrative* Sigrid Avalos [...] a day. Hyperglycemia due to diabetes mellitus ([facility]) - Basic Metabolic Panel; Future - Hemoglobin A1C; Future documented in this encounterMemorial Health [facility] Work Phone: 1(150) 369-912212-01-2023 History of Present illness Narrative* Jamari Byrne [...] Pulse 93 Temp 36.5 C (97.7 F) Wt 88.2 kg (194 lb 8 oz) SpO2 98% [...] this visit: Hyperglycemia due to diabetes mellitus ([facility]) - Dexcom G4 [place] transmitter (Dexcom G6 Transmitter) device; Change as directed - Hemoglobin A1C; Future - Basic Metabolic Panel; Future F/u 2 months documented in this encounterMemorial [facility] Work Phone: 1(120) 456-978112-01-2023 Instructions* Patient Instructions* Jamari Byrne MD - 05/09/2023 11:20 AM EST For ux engineer Kandace [place] WRAPPER HAND documented in this [facility] Work Phone: 1([phone]) 286-446710-09-2023 History of Present illness Narrative* Jamari Byrne [...] HOURS NEEDED Hyperglycemia due to diabetes mellitus ([facility]) - dulaglutide (Trulicity) 1.5 mg/0.5 [...] units at bedtime subcutaneous - Dexcom G4 [place] [employer] (Dexcom G6 Surgical Elastic Knitter) [facility]; Use as instructed documented in this [facility] Work Phone: 1([phone]) 241-990707-07-2023 History of Present illness Narrative* Jamari Byrne [...] this visit: Hyperglycemia due to diabetes mellitus ([facility]) - Dexcom G4 [place] transmitter (Dexcom G6 Transmitter) device; Apply every 10 days - insulin glargine (Lantus U-100 Insulin) 100 unit/mL injection; Inject 10 Units under the skin once daily at bedtime. Take as directed per insulin instructions. - pen needle, diabetic 31 gauge x 5/16 needle; Inject nightly - Hemoglobin A1C; Future Other orders - Follow Up In Primary Care documented in this encounterMemorial Health [facility] Work Phone: 1(884) 346-210003-11-2023 Instructions* Patient Instructions* Lazara Jon DO - 08/17/2022 7:51 PM EST test is negative. Treating presumptively for vaginal yeast infection with prescription for Diflucan. Test for sexually transmitted diseases is pending and you will be notified if there are any positive results. * Attachments The following attachments cannot be sent through Care Everywhere. * Vaginal Yeast Infection (Iraqi) documented in this [id number] History of Present illness Narrative* Lazara Jon DO - 08/17/2022 7:05 PM EST PATIENT NAME: Melissa Kaur [facility]: [address] [facility] [id number] DATE OF VISIT: 08/17/2022 DATE OF : [...] it is wet prep. Patient uses the [employer] system and will look for her results there. We will call her additionally, if there are positive test that needed a change in treatment plan. Lazara Jon 08/17/2022 documented in this [id number] History of Present illness Narrative* father is [...] when manic * ros * no cp -[facility] Work Phone: 1(885) 674-781607-13-2022 History of Present illness NarrativePatient is a 26-year-old who comes in for a test of cure for trichomoniasis. Patient was here last week for test of cure for chlamydia. Patient reports that her partner has been treated and they havenot engaged in coitus since her diagnosis. Patient has no concerns todayButton Brew House Work Phone: 1(496) 484-155904-01-2022 History of Present illness NarrativePatient is a 26-year-old who comes in for routine [employer] exam. Patient reports she has not been [...] She reports that she has recently started [facility] [employer] [facility] Work Phone: [phone]) 103-783307-09-2021 History of Present illness Narrative* Patient is [...] cutting.She is following with Dr Jackson at [facility] and seeing her counselor. She is [...] po bid and metformin 1000mg po bid. [facility] Work Phone: 1(120) [phone] History of Past illness Narrative* Problem Noted Date Diagnosed Date Resolved Date Polyhydramnios 01/01/2017 07/11/2023 Threatened premature labor in third trimester 12/27/19 17 07/11/2023 Overview: December 26, 2016 Received betamethasone on 12/23 and 12/24/16. Piper Julian MD LGA (large for gestational age) 12/23/2016 07/11/2023 Overview: 12/23/16 - >95% Gestational proteinuria, third trimester 12/20/2016 07/11/2023 Overview: 12/20/16 - 24hr urine from [facility] on 12/13/16 was 323mg, BP & preE labs normal - KJ Gestational diabetes 12/20/2016 024 with care elsewhere, antepartum 12/12/2016 07/11/2023 Overview: 12/12/2016Patient is transferring care from [facility]. She states she has moved from [place] to [place] and wishes to be seen here.There is some notations by her previous doctor of non-compliance issues with keeping appointments and diabetic diet/Insulin dosages. She states she was seen at the [facility] 11/18 for decreased movement and then again about the 3rd week of October for threatened PTL. She states she was given Brethine in the hospital and sent home on no medications. She was last seen by her OB in [place] yesterday for [place] contractions. She denies any bleeding or LOF. Baby has been active. Some [place] contractions occasionally. Discussed with Dr Schulte and patient advised to monitor pain. If increases to call/come in. Kick counts discussed. TKRN Pre-existing type 2 diabetes mellitus in in third trimester 12/12/2016 07/11/2023 Overview: 12/23/16 - admitted to [place] for glucoregulation, likely will need delivery at 37 weeks - KJ 12/12/2016 She is a Type 2 diabetic and started Insulin during the .Last HGB A1c 6.9 on 11/14/2016.She sees an bindery machine tender, Dr Asif. Her records have been faxed here during the visit and are sent to [address] Gramajo review. TKRN January 14, 2017 EFW is approx 95%. Monitor closely, consider early delivery per MFM. Piper Julian MD documented as of this encounter (statuses as of 08/19/2023) [facility] Diagnosis Yeast vaginitis- Primary Late menses Other disorder of menstruation and other abnormal bleeding from female genital tract Vaginal discharge Leukorrhea, not specified as infective [facility] Hyperglycemia due to diabetes mellitus (CMS/HCC) documented in this encounter [facility] Work Phone: Evaluation note* Diagnosis Exercise-induced asthma- Primary Exercise induced bronchospasm Hyperglycemia due to diabetes mellitus (CMS/HCC) documented in this encounter [facility] Work Phone: Evaluation note* Diagnosis Hyperglycemia due to diabetes mellitus (CMS/HCC) documented in this encounter [facility] Work Phone: Evaluation note* Diagnosis Necrobiosis lipoidica- Primary Degenerative skin disorder Hyperglycemia due to diabetes mellitus (CMS/HCC) documented in this encounter [facility] Work Phone: Evaluation note* Diagnosis Pain, dental- Primary Unspecified disorder of the teeth and supporting structures [facility] Diagnosis Sebaceous cyst- Primary Hyperglycemia due to diabetes mellitus ([facility]/HCC) Exercise-induced asthma Exercise induced bronchospasm documented in this encounter [facility] Work Phone: Evaluation note* Diagnosis Urinary tract infection in mother during first trimester of ([facility]-HCC)- Primary Herpes simplex vulvovaginitis documented in this encounter [facility] Work Phone: Evaluation note* Diagnosis Bacterial vaginosis- Primary Unspecified vaginitis and vulvovaginitis Less than 8 weeks gestation of ([facility]) documented in this encounter [facility] Work Phone: Evaluation note* Diagnosis Type 2 diabetes mellitus complicating , antepartum, first trimester- Primary Insulin controlled gestational diabetes mellitus (GDM) in first trimester High-risk , first trimester [facility]* Diagnosis Bipolar depression (Multi)- Primary Bipolar I disorder, most recent episode (or current) depressed, unspecified Hyperglycemia due to diabetes mellitus (Multi) Cigarette nicotine dependence with other nicotine-induced disorder documented in this encounter [facility] Work Phone: Evaluation note* Diagnosis Encounter [...] of the cervix [facility]* Diagnosis Insulin controlled gestational diabetes mellitus (GDM) in first trimester documented in this encounter [facility] note* Diagnosis Bacterial vaginosis- Primary Vaginitis and vulvovaginitis, unspecified documented in this encounter [facility] note* Diagnosis Insulin controlled gestational diabetes mellitus (GDM) in first trimester documented in this encounter [facility] note* Diagnosis Necrobiosis lipoidica- Primary Degenerative skin disorder Hyperglycemia due to diabetes mellitus (Multi) documented in this encounter [facility] Work Phone: Evaluation note* Diagnosis Abdominal pain during in first trimester ([facility]-HCC)- Primary documented in this encounter [facility] Work Phone: Evaluation note* Diagnosis Exercise-induced asthma ([facility]-HCC)- Primary Exercise induced bronchospasm Hyperglycemia due to diabetes mellitus (Multi) Bipolar depression (Multi) Bipolar I disorder, most recent episode (or current) depressed, unspecified Necrobiosis lipoidica Degenerative skin disorder documented in this encounter [facility] Work Phone: Evaluation note* Diagnosis 10 [...] of unspecified chromosome documented in this encounter [facility] note* Diagnosis Insulin controlled gestational diabetes mellitus (GDM) in first trimester [facility] Insulin controlled gestational diabetes mellitus (GDM) in first trimester documented in this encounter [facility] note* Diagnosis Insulin controlled gestational diabetes mellitus (GDM) in first trimester documented in this encounter [facility] note* Diagnosis Encounter for screening for malformation using ultrasound- Primary 13 weeks gestation of state, incidental documented in this encounter [facility] note* Diagnosis H/O macrosomia in in prior , currently with other poor obstetric history Pre-existing type 2 diabetes mellitus in in first trimester Diabetes mellitus of mother, complicating , childbirth, or the puerperium, unspecified as to episode of care History of pre-eclampsia Personal history of other genital system and obstetric disorders [facility]* Diagnosis Pre-existing type 2 diabetes mellitus in in second trimester- Primary Diabetes mellitus of mother, complicating , childbirth, or the puerperium, unspecified as to episode of care [facility]* Diagnosis Influenza A- Primary Influenza with other respiratory manifestations documented in this encounter [facility] Work Phone: Evaluation note* Diagnosis Pre-existing [...] at 32 weeks documented [facility] encounter [facility]* Diagnosis Pre-existing type 2 diabetes mellitus [...] in first trimester [facility]* Diagnosis Pre-existing type 2 diabetes mellitus [...] in first trimester [facility]* Diagnosis Pre-existing type 2 diabetes mellitus [...] vulva and perineum documented [facility]* Diagnosis Pre-existing type 2 diabetes mellitus [...] , second trimester [facility]* Diagnosis Pre-existing type 2 diabetes mellitus [...] for anatomic survey documented [facility]* Diagnosis Pre-existing type 2 diabetes mellitus [...] from chart review documented in this encounter [facility] note* Diagnosis Pre-existing type 2 [...] OB DIP B/O documented in this encounter [facility] note* Diagnosis Pre-existing type 2 [...] for anatomic survey documented in this encounter [facility] note* Diagnosis Pre-existing type 2 [...] in first trimester [facility]* Diagnosis Pre-existing type 2 diabetes mellitus [...] in first trimester documented in this encounter [facility] note* Diagnosis Pre-existing type 2 [...] 1 [O35.9XX1]- Primary [facility]* Diagnosis Pre-existing type 2 diabetes mellitus in in first trimester (HCC)- Primary Diabetes mellitus of mother, complicating , childbirth, or the puerperium, unspecified as to episode of care History of pre-eclampsia Personal history of other genital system and obstetric disorders H/O macrosomia in in prior , currently (HCC) with other poor obstetric history 17 weeks gestation of ([facility]) state, incidental Encounter for screening for malformation using ultrasound ([facility]) Obesity affecting in first trimester, unspecified obesity type ([facility])- Primary Herpes simplex type 2 (HSV-2) infection affecting , antepartum, unspecified trimester ([facility]) Pre-existing type 2 diabetes mellitus in in first trimester ([facility]) Diabetes mellitus of mother, complicating , childbirth, or the puerperium, unspecified as to episode of care 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 Encounter for supervision of high risk in first trimester, antepartum ([facility]) 21 weeks gestation of ([facility]) state, incidental Pre-existing type 2 diabetes mellitus in in first trimester ([facility])- Primary Diabetes mellitus of mother, complicating , childbirth, or the puerperium, unspecified as to episode of care Obesity affecting in first trimester, unspecified obesity type ([facility]) History of pre-eclampsia Personal history of other genital system and obstetric disorders H/O macrosomia in in prior , currently ([facility]) with other poor obstetric history History of bipolar disorder Personal history of affective disorder 21 weeks gestation of ([facility]) state, incidental Encounter for anatomic survey ([facility]) Encounter for anatomic survey Pre-existing type 2 diabetes mellitus in in first trimester ([facility])- Primary Diabetes mellitus of mother, complicating , childbirth, or the puerperium, unspecified as to episode of care Obesity affecting in first trimester, unspecified obesity type ([facility]) [facility]* Diagnosis Exercise-induced asthma Exercise induced bronchospasm Bipolar depression (Multi) Bipolar I disorder, most recent episode (or current) depressed, unspecified documented in this encounter [facility] Work Phone: Evaluation note* Diagnosis Pre-existing type 2 diabetes mellitus in in first trimester ([facility])- Primary Diabetes mellitus of mother, complicating , childbirth, or the puerperium, unspecified as to episode of care History of pre-eclampsia Personal history of other genital system and obstetric disorders H/O macrosomia in infant in prior , currently ([facility]) with other poor obstetric history 17 weeks gestation of ([facility]) state, incidental Encounter for screening for malformation using ultrasound ([facility]) Obesity affecting in first trimester, unspecified obesity type ([facility])- Primary Herpes simplex type 2 (HSV-2) infection affecting , antepartum, unspecified trimester ([facility]) Pre-existing type 2 diabetes mellitus in in first trimester ([facility]) Diabetes mellitus of mother, complicating , childbirth, or the puerperium, unspecified as to episode of care 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 Encounter for supervision of high risk in first trimester, antepartum ([facility]) 21 weeks gestation of ([facility]) state, incidental Pre-existing type 2 diabetes mellitus in in first trimester ([facility])- Primary Diabetes mellitus of mother, complicating , childbirth, or the puerperium, unspecified as to episode of care Obesity affecting in first trimester, unspecified obesity type ([facility]) History of pre-eclampsia Personal history of other genital system and obstetric disorders H/O macrosomia in infant in prior , currently ([facility]) with other poor obstetric history History of bipolar disorder Personal history of affective disorder 21 weeks gestation of ([facility]) state, incidental Encounter for anatomic survey ([facility]) Encounter for anatomic survey with uncertain dates in first trimester ([facility]) [facility]* Diagnosis Pre-existing type 2 diabetes mellitus in in first trimester ([facility])- Primary Diabetes mellitus of mother, complicating , childbirth, or the puerperium, unspecified as to episode of care History of pre-eclampsia Personal history of other genital system and obstetric disorders H/O macrosomia in in prior , currently ([facility]) with other poor obstetric history 17 weeks gestation of ([facility]) state, incidental Encounter for screening for malformation using ultrasound ([facility]) Obesity affecting in first trimester, unspecified obesity type ([facility])- Primary Herpes simplex type 2 (HSV-2) infection affecting , antepartum, unspecified trimester ([facility]) Pre-existing type 2 diabetes mellitus in in first trimester ([facility]) Diabetes mellitus of mother, complicating , childbirth, or the puerperium, unspecified as to episode of care 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 Encounter for supervision of high risk in first trimester, antepartum ([facility]) 21 weeks gestation of ([facility]) state, incidental Pre-existing type 2 diabetes mellitus in in first trimester ([facility])- Primary Diabetes mellitus of mother, complicating , childbirth, or the puerperium, unspecified as to episode of care Obesity affecting in first trimester, unspecified obesity type ([facility]) History of pre-eclampsia Personal history of other genital system and obstetric disorders H/O macrosomia in infant in prior , currently ([facility]) with other poor obstetric history History of bipolar disorder Personal history of affective disorder 21 weeks gestation of ([facility]) state, incidental Encounter for anatomic survey ([facility]) Encounter for anatomic survey complication before ([facility])- Primary Other specified complication, antepartum [facility]* Diagnosis Pre-existing type 2 diabetes mellitus in in first trimester ([facility])- Primary Diabetes mellitus of mother, complicating , childbirth, or the puerperium, unspecified as to episode of care History of pre-eclampsia Personal history of other genital system and obstetric disorders H/O macrosomia in infant in prior , currently ([facility]) with other poor obstetric history 17 weeks gestation of ([facility]) state, incidental Encounter for screening for malformation using ultrasound ([facility]) Obesity affecting in first trimester, unspecified obesity type ([facility])- Primary Herpes simplex type 2 (HSV-2) infection affecting , antepartum, unspecified trimester ([facility]) Pre-existing type 2 diabetes mellitus in in first trimester ([facility]) Diabetes mellitus of mother, complicating , childbirth, or the puerperium, unspecified as to episode of care 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 Encounter for supervision of high risk in first trimester, antepartum ([facility]) 21 weeks gestation of ([facility]) state, incidental Pre-existing type 2 diabetes mellitus in in first trimester ([facility])- Primary Diabetes mellitus of mother, complicating , childbirth, or the puerperium, unspecified as to episode of care Obesity affecting in first trimester, unspecified obesity type ([facility]) History of pre-eclampsia Personal history of other genital system and obstetric disorders H/O macrosomia in in prior , currently ([facility]) with other poor obstetric history History of bipolar disorder Personal history of affective disorder 21 weeks gestation of ([facility]) state, incidental Encounter for anatomic survey ([facility]) Encounter for anatomic survey Screening for diabetes mellitus- Primary Obesity affecting in first trimester, unspecified obesity type ([facility]) Pre-existing type 2 diabetes mellitus in in first trimester ([facility]) Diabetes mellitus of mother, complicating , childbirth, or the puerperium, unspecified as to episode of care Herpes simplex type 2 (HSV-2) infection affecting , antepartum, unspecified trimester ([facility]) 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 note* Diagnosis Pre-existing type 2 diabetes mellitus in in first trimester ([facility])- Primary Diabetes mellitus of mother, complicating , childbirth, or the puerperium, unspecified as to episode of care History of pre-eclampsia Personal history of other genital system and obstetric disorders H/O macrosomia in in prior , currently ([facility]) with other poor obstetric history 17 weeks gestation of ([facility]) state, incidental Encounter for screening for malformation using ultrasound ([facility]) Obesity affecting in first trimester, unspecified obesity type ([facility])- Primary Herpes simplex type 2 (HSV-2) infection affecting , antepartum, unspecified trimester ([facility]) Pre-existing type 2 diabetes mellitus in in first trimester ([facility]) Diabetes mellitus of mother, complicating , childbirth, or the puerperium, unspecified as to episode of care 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 Encounter for supervision of high risk in first trimester, antepartum ([facility]) 21 weeks gestation of ([facility]) state, incidental Pre-existing type 2 diabetes mellitus in in first trimester ([facility])- Primary Diabetes mellitus of mother, complicating , childbirth, or the puerperium, unspecified as to episode of care Obesity affecting in first trimester, unspecified obesity type ([facility]) History of pre-eclampsia Personal history of other genital system and obstetric disorders H/O macrosomia in in prior , currently ([facility]) with other poor obstetric history History of bipolar disorder Personal history of affective disorder 21 weeks gestation of ([facility]) state, incidental Encounter for anatomic survey ([facility]) Encounter for anatomic survey Type 2 diabetes mellitus during , antepartum, third trimester ([facility])- Primary Insulin controlled gestational diabetes mellitus (GDM) in first trimester ([facility]) High-risk , third trimester ([facility]) documented in this encounter [facility] note* Diagnosis Pre-existing type 2 diabetes mellitus in in first trimester ([facility])- Primary Diabetes mellitus of mother, complicating , childbirth, or the puerperium, unspecified as to episode of care History of pre-eclampsia Personal history of other genital system and obstetric disorders H/O macrosomia in in prior , currently ([facility]) with other poor obstetric history 17 weeks gestation of ([facility]) state, incidental Encounter for screening for malformation using ultrasound ([facility]) Obesity affecting in first trimester, unspecified obesity type ([facility])- Primary Herpes simplex type 2 (HSV-2) infection affecting , antepartum, unspecified trimester ([facility]) Pre-existing type 2 diabetes mellitus in in first trimester ([facility]) Diabetes mellitus of mother, complicating , childbirth, or the puerperium, unspecified as to episode of care 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 Encounter for supervision of high risk in first trimester, antepartum ([facility]) 21 weeks gestation of ([facility]) state, incidental Pre-existing type 2 diabetes mellitus in in first trimester ([facility])- Primary Diabetes mellitus of mother, complicating , childbirth, or the puerperium, unspecified as to episode of care Obesity affecting in first trimester, unspecified obesity type ([facility]) History of pre-eclampsia Personal history of other genital system and obstetric disorders H/O macrosomia in infant in prior , currently ([facility]) with other poor obstetric history History of bipolar disorder Personal history of affective disorder 21 weeks gestation of ([facility]) state, incidental Encounter for anatomic survey ([facility]) Encounter for anatomic survey Procedure not carried out- Primary Procedure not carried out for other reasons Supervision of high risk in second trimester ([facility])- Primary Unspecified high-risk 27 weeks gestation of ([facility]) state, incidental Burning with urination Dysuria Vaginal discharge Leukorrhea, not specified as infective documented [facility] this encounter [facility] noteNo assessment information availableWMadison Health Work Phone: Evaluation note* Diagnosis Pre-existing type 2 diabetes mellitus in in first trimester ([facility])- Primary Diabetes mellitus of mother, complicating , childbirth, or the puerperium, unspecified as to episode of care History of pre-eclampsia Personal history of other genital system and obstetric disorders H/O macrosomia in in prior , currently ([facility]) with other poor obstetric history 17 weeks gestation of ([facility]) state, incidental Encounter for screening for malformation using ultrasound ([facility]) Obesity affecting in first trimester, unspecified obesity type ([facility])- Primary Herpes simplex type 2 (HSV-2) infection affecting , antepartum, unspecified trimester ([facility]) Pre-existing type 2 diabetes mellitus in in first trimester ([facility]) Diabetes mellitus of mother, complicating , childbirth, or the puerperium, unspecified as to episode of care 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 Encounter for supervision of high risk in first trimester, antepartum ([facility]) 21 weeks gestation of ([facility]) state, incidental Pre-existing type 2 diabetes mellitus in in first trimester ([facility])- Primary Diabetes mellitus of mother, complicating , childbirth, or the puerperium, unspecified as to episode of care Obesity affecting in first trimester, unspecified obesity type ([facility]) History of pre-eclampsia Personal history of other genital system and obstetric disorders H/O macrosomia in infant in prior , currently ([facility]) with other poor obstetric history History of bipolar disorder Personal history of affective disorder 21 weeks gestation of ([facility]) state, incidental Encounter for anatomic survey ([facility]) Encounter for anatomic survey Supervision of high risk in second trimester ([facility])- Primary Unspecified high-risk 27 weeks gestation of ([facility]) state, incidental Burning with urination Dysuria Vaginal discharge Leukorrhea, not specified as infective HSV (herpes simplex virus) infection Herpes simplex without mention of complication documented in this encounter [facility]* Diagnosis Pre-existing type 2 diabetes mellitus in in first trimester ([facility])- Primary Diabetes mellitus of mother, complicating , childbirth, or the puerperium, unspecified as to episode of care History of pre-eclampsia Personal history of other genital system and obstetric disorders H/O macrosomia in in prior , currently ([facility]) with other poor obstetric history 17 weeks gestation of ([facility]) state, incidental Encounter for screening for malformation using ultrasound ([facility]) Obesity affecting in first trimester, unspecified obesity type ([facility])- Primary Herpes simplex type 2 (HSV-2) infection affecting , antepartum, unspecified trimester ([facility]) Pre-existing type 2 diabetes mellitus in in first trimester ([facility]) Diabetes mellitus of mother, complicating , childbirth, or the puerperium, unspecified as to episode of care 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 Encounter for supervision of high risk in first trimester, antepartum ([facility]) 21 weeks gestation of ([facility]) state, incidental Pre-existing type 2 diabetes mellitus in in first trimester ([facility])- Primary Diabetes mellitus of mother, complicating , childbirth, or the puerperium, unspecified as to episode of care Obesity affecting in first trimester, unspecified obesity type ([facility]) History of pre-eclampsia Personal history of other genital system and obstetric disorders H/O macrosomia in infant in prior , currently ([facility]) with other poor obstetric history History of bipolar disorder Personal history of affective disorder 21 weeks gestation of ([facility]) state, incidental Encounter for anatomic survey ([facility]) Encounter for anatomic survey BV (bacterial vaginosis)- Primary Vaginitis and vulvovaginitis, unspecified documented in this encounter [facility]* Diagnosis Pre-existing type 2 diabetes mellitus in in first trimester ([facility])- Primary Diabetes mellitus of mother, complicating , childbirth, or the puerperium, unspecified as to episode of care History of pre-eclampsia Personal history of other genital system and obstetric disorders H/O macrosomia in infant in prior , currently ([facility]) with other poor obstetric history 17 weeks gestation of ([facility]) state, incidental Encounter for screening for malformation using ultrasound ([facility]) Obesity affecting in first trimester, unspecified obesity type ([facility])- Primary Herpes simplex type 2 (HSV-2) infection affecting , antepartum, unspecified trimester ([facility]) Pre-existing type 2 diabetes mellitus in in first trimester ([facility]) Diabetes mellitus of mother, complicating , childbirth, or the puerperium, unspecified as to episode of care 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 Encounter for supervision of high risk in first trimester, antepartum ([facility]) 21 weeks gestation of ([facility]) state, incidental Pre-existing type 2 diabetes mellitus in in first trimester ([facility])- Primary Diabetes mellitus of mother, complicating , childbirth, or the puerperium, unspecified as to episode of care Obesity affecting in first trimester, unspecified obesity type ([facility]) History of pre-eclampsia Personal history of other genital system and obstetric disorders H/O macrosomia in in prior , currently ([facility]) with other poor obstetric history History of bipolar disorder Personal history of affective disorder 21 weeks gestation of ([facility]) state, incidental Encounter for anatomic survey ([facility]) Encounter for anatomic survey Supervision of high risk in third trimester ([facility])- Primary Unspecified high-risk History of pre-eclampsia Personal history of other genital system and obstetric disorders 29 weeks gestation of ([facility]) state, incidental Pre-existing type 2 diabetes mellitus in in third trimester ([facility]) Diabetes mellitus of mother, complicating , childbirth, or the puerperium, unspecified as to episode of care 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 Pre-existing type 2 diabetes mellitus in in first trimester ([facility]) Diabetes mellitus of mother, complicating , childbirth, or the puerperium, unspecified as to episode of care Tobacco smoking complicating in first trimester ([facility]) Tobacco use disorder complicating , childbirth, or the puerperium, antepartum condition or complication History of recurrent UTI (urinary tract infection) Personal history of urinary (tract) infection 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, 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, 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 residential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 ([facility]) Herpes simplex type 2 (HSV-2) infection affecting , antepartum, unspecified trimester ([facility]) * Assessment & Plan Note - Piper Julian MD - 10/04/2024 11:19 AM EDT Associated Problem(s): History of pre-eclampsia Orders: ECG COMPLETE; Future NON-STRESS TEST; Standing PROTEIN / CREATININE RATIO; Future BACTERIAL CULTURE, URINE; Future * Assessment & Plan Note - Piper Julian MD - 10/04/2024 11:19 AM EDT Associated Problem(s): 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 and NIPT test this previous child had testing at [facility] * Assessment & Plan Note - Piper [...] (HSV-2) infection affecting , antepartum, unspecified trimester ([facility]) prophylaxis ordered, no outbreaks recently documented in this encounter [facility]* Diagnosis Pre-existing type 2 diabetes mellitus in in first trimester ([facility])- Primary Diabetes mellitus of mother, complicating , childbirth, or the puerperium, unspecified as to episode of care History of pre-eclampsia Personal history of other genital system and obstetric disorders H/O macrosomia in infant in prior , currently ([facility]) with other poor obstetric history 17 weeks gestation of ([facility]) state, incidental Encounter for screening for malformation using ultrasound ([facility]) Obesity affecting in first trimester, unspecified obesity type ([facility])- Primary Herpes simplex type 2 (HSV-2) infection affecting , antepartum, unspecified trimester ([facility]) Pre-existing type 2 diabetes mellitus in in first trimester ([facility]) Diabetes mellitus of mother, complicating , childbirth, or the puerperium, unspecified as to episode of care 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 Encounter for supervision of high risk in first trimester, antepartum ([facility]) 21 weeks gestation of ([facility]) state, incidental Pre-existing type 2 diabetes mellitus in in first trimester ([facility])- Primary Diabetes mellitus of mother, complicating , childbirth, or the puerperium, unspecified as to episode of care Obesity affecting in first trimester, unspecified obesity type ([facility]) History of pre-eclampsia Personal history of other genital system and obstetric disorders H/O macrosomia in in prior , currently ([facility]) with other poor obstetric history History of bipolar disorder Personal history of affective disorder 21 weeks gestation of ([facility]) state, incidental Encounter for anatomic survey ([facility]) Encounter for anatomic survey Supervision of high risk in third trimester ([facility])- Primary Unspecified high-risk History of pre-eclampsia Personal history of other genital system and obstetric disorders 29 weeks gestation of ([facility]) state, incidental Pre-existing type 2 diabetes mellitus in in third trimester ([facility]) Diabetes mellitus of mother, complicating , childbirth, or the puerperium, unspecified as to episode of care 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 Pre-existing type 2 diabetes mellitus in in first trimester ([facility]) Diabetes mellitus of mother, complicating , childbirth, or the puerperium, unspecified as to episode of care Tobacco smoking complicating in first trimester ([facility]) Tobacco use disorder complicating , childbirth, or the puerperium, antepartum condition or complication History of recurrent UTI (urinary tract infection) Personal history of urinary (tract) infection 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, 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, 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 note* Diagnosis Pre-existing type 2 diabetes mellitus in in first trimester ([facility])- Primary Diabetes mellitus of mother, complicating , childbirth, or the puerperium, unspecified as to episode of care History of pre-eclampsia Personal history of other genital system and obstetric disorders H/O macrosomia in infant in prior , currently ([facility]) with other poor obstetric history 17 weeks gestation of ([facility]) state, incidental Encounter for screening for malformation using ultrasound ([facility]) Obesity affecting in first trimester, unspecified obesity type ([facility])- Primary Herpes simplex type 2 (HSV-2) infection affecting , antepartum, unspecified trimester ([facility]) Pre-existing type 2 diabetes mellitus in in first trimester ([facility]) Diabetes mellitus of mother, complicating , childbirth, or the puerperium, unspecified as to episode of care 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 Encounter for supervision of high risk in first trimester, antepartum ([facility]) 21 weeks gestation of ([facility]) state, incidental Pre-existing type 2 diabetes mellitus in in first trimester ([facility])- Primary Diabetes mellitus of mother, complicating , childbirth, or the puerperium, unspecified as to episode of care Obesity affecting in first trimester, unspecified obesity type ([facility]) History of pre-eclampsia Personal history of other genital system and obstetric disorders H/O macrosomia in infant in prior , currently ([facility]) with other poor obstetric history History of bipolar disorder Personal history of affective disorder 21 weeks gestation of ([facility]) state, incidental Encounter for anatomic survey ([facility]) Encounter for anatomic survey Supervision of high risk in third trimester ([facility])- Primary Unspecified high-risk History of pre-eclampsia Personal history of other genital system and obstetric disorders 29 weeks gestation of ([facility]) state, incidental Pre-existing type 2 diabetes mellitus in in third trimester ([facility]) Diabetes mellitus of mother, complicating , childbirth, or the puerperium, unspecified as to episode of care 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 Pre-existing type 2 diabetes mellitus in in first trimester ([facility]) Diabetes mellitus of mother, complicating , childbirth, or the puerperium, unspecified as to episode of care Tobacco smoking complicating in first trimester ([facility]) Tobacco use disorder complicating , childbirth, or the puerperium, antepartum condition or complication History of recurrent UTI (urinary tract infection) Personal history of urinary (tract) infection 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, 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, 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 residential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 ([facility]) Herpes simplex type 2 (HSV-2) infection affecting , antepartum, unspecified trimester ([facility]) Supervision of high risk in third trimester ([facility])- Primary Unspecified high-risk Pre-existing type 2 diabetes mellitus in in third trimester ([facility]) Diabetes mellitus of mother, complicating , childbirth, or the puerperium, unspecified as to episode of care Herpes simplex type 2 (HSV-2) infection affecting , antepartum, unspecified trimester ([facility]) H/O macrosomia in in prior , currently ([facility]) with other poor obstetric history History of pre-eclampsia Personal history of other genital system and obstetric disorders 31 weeks gestation of ([facility]) state, incidental * Assessment & Plan Note - Whit Morton MD - 10/18/2024 4:08 PM EDT Associated Problem(s): Herpes simplex type 2 (HSV-2) infection affecting , antepartum, unspecified trimester ([facility]) Taking acyclovir * Assessment & Plan Note - Whit Morton MD - 10/18/2024 4:08 PM EDT Associated Problem(s): H/O macrosomia in in prior , currently ([facility]) Growth us scheduled * Assessment & Plan Note - Whit Morton MD - 10/18/2024 4:08 PM EDT Associated Problem(s): History of pre-eclampsia Continue ASA documented in this encounter [facility]* Diagnosis Pre-existing type 2 diabetes mellitus in in first trimester ([facility])- Primary Diabetes mellitus of mother, complicating , childbirth, or the puerperium, unspecified as to episode of care History of pre-eclampsia Personal history of other genital system and obstetric disorders H/O macrosomia in infant in prior , currently ([facility]) with other poor obstetric history 17 weeks gestation of ([facility]) state, incidental Encounter for screening for malformation using ultrasound ([facility]) Obesity affecting in first trimester, unspecified obesity type ([facility])- Primary Herpes simplex type 2 (HSV-2) infection affecting , antepartum, unspecified trimester ([facility]) Pre-existing type 2 diabetes mellitus in in first trimester ([facility]) Diabetes mellitus of mother, complicating , childbirth, or the puerperium, unspecified as to episode of care 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 Encounter for supervision of high risk in first trimester, antepartum ([facility]) 21 weeks gestation of ([facility]) state, incidental Pre-existing type 2 diabetes mellitus in in first trimester ([facility])- Primary Diabetes mellitus of mother, complicating , childbirth, or the puerperium, unspecified as to episode of care Obesity affecting in first trimester, unspecified obesity type ([facility]) History of pre-eclampsia Personal history of other genital system and obstetric disorders H/O macrosomia in in prior , currently ([facility]) with other poor obstetric history History of bipolar disorder Personal history of affective disorder 21 weeks gestation of ([facility]) state, incidental Encounter for anatomic survey ([facility]) Encounter for anatomic survey Supervision of high risk in third trimester ([facility])- Primary Unspecified high-risk History of pre-eclampsia Personal history of other genital system and obstetric disorders 29 weeks gestation of ([facility]) state, incidental Pre-existing type 2 diabetes mellitus in in third trimester ([facility]) Diabetes mellitus of mother, complicating , childbirth, or the puerperium, unspecified as to episode of care 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 Pre-existing type 2 diabetes mellitus in in first trimester ([facility]) Diabetes mellitus of mother, complicating , childbirth, or the puerperium, unspecified as to episode of care Tobacco smoking complicating in first trimester ([facility]) Tobacco use disorder complicating , childbirth, or the puerperium, antepartum condition or complication History of recurrent UTI (urinary tract infection) Personal history of urinary (tract) infection 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, 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, 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 ([facility]) Herpes simplex type 2 (HSV-2) infection affecting , antepartum, unspecified trimester ([facility]) Supervision of high risk in third trimester ([facility])- Primary Unspecified high-risk Pre-existing type 2 diabetes mellitus in in third trimester ([facility]) Diabetes mellitus of mother, complicating , childbirth, or the puerperium, unspecified as to episode of care Herpes simplex type 2 (HSV-2) infection affecting , antepartum, unspecified trimester ([facility]) H/O macrosomia in in prior , currently ([facility]) with other poor obstetric history History of pre-eclampsia Personal history of other genital system and obstetric disorders 31 weeks gestation of ([facility]) state, incidental Supervision of high risk in third trimester ([facility])- Primary Unspecified high-risk Pre-existing type 2 diabetes mellitus in in third trimester ([facility]) Diabetes mellitus of mother, complicating [...] METABOLIC PANEL; Future documented in this encounter [facility]* Diagnosis Pre-existing type 2 diabetes mellitus in in first trimester ([facility])- Primary Diabetes mellitus of mother, complicating , childbirth, or the puerperium, unspecified as to episode of care History of pre-eclampsia Personal history of other genital system and obstetric disorders H/O macrosomia in in prior , currently ([facility]) with other poor obstetric history 17 weeks gestation of ([facility]) state, incidental Encounter for screening for malformation using ultrasound ([facility]) Obesity affecting in first trimester, unspecified obesity type ([facility])- Primary Herpes simplex type 2 (HSV-2) infection affecting , antepartum, unspecified trimester ([facility]) Pre-existing type 2 diabetes mellitus in in first trimester ([facility]) Diabetes mellitus of mother, complicating , childbirth, or the puerperium, unspecified as to episode of care 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 Encounter for supervision of high risk in first trimester, antepartum ([facility]) 21 weeks gestation of ([facility]) state, incidental Pre-existing type 2 diabetes mellitus in in first trimester ([facility])- Primary Diabetes mellitus of mother, complicating , childbirth, or the puerperium, unspecified as to episode of care Obesity affecting in first trimester, unspecified obesity type ([facility]) History of pre-eclampsia Personal history of other genital system and obstetric disorders H/O macrosomia in infant in prior , currently ([facility]) with other poor obstetric history History of bipolar disorder Personal history of affective disorder 21 weeks gestation of ([facility]) state, incidental Encounter for anatomic survey ([facility]) Encounter for anatomic survey Supervision of high risk in third trimester ([facility])- Primary Unspecified high-risk History of pre-eclampsia Personal history of other genital system and obstetric disorders 29 weeks gestation of ([facility]) state, incidental Pre-existing type 2 diabetes mellitus in in third trimester ([facility]) Diabetes mellitus of mother, complicating , childbirth, or the puerperium, unspecified as to episode of care 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 Pre-existing type 2 diabetes mellitus in in first trimester ([facility]) Diabetes mellitus of mother, complicating , childbirth, or the puerperium, unspecified as to episode of care Tobacco smoking complicating in first trimester ([facility]) Tobacco use disorder complicating , childbirth, or the puerperium, antepartum condition or complication History of recurrent UTI (urinary tract infection) Personal history of urinary (tract) infection 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, 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, 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 residential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 ([facility]) Herpes simplex type 2 (HSV-2) infection affecting , antepartum, unspecified trimester ([facility]) Supervision of high risk in third trimester ([facility])- Primary Unspecified high-risk Pre-existing type 2 diabetes mellitus in in third trimester ([facility]) Diabetes mellitus of mother, complicating , childbirth, or the puerperium, unspecified as to episode of care Herpes simplex type 2 (HSV-2) infection affecting , antepartum, unspecified trimester ([facility]) H/O macrosomia in infant in prior , currently ([facility]) with other poor obstetric history History of pre-eclampsia Personal history of other genital system and obstetric disorders 31 weeks gestation of ([facility]) state, incidental Supervision of high risk in third trimester ([facility])- Primary Unspecified high-risk Pre-existing type 2 diabetes mellitus in in third trimester ([facility]) Diabetes mellitus of mother, complicating , childbirth, or the puerperium, unspecified as to episode of care Exposure to parvovirus Contact with or exposure to other viral diseases History of pre-eclampsia Personal history of other genital system and obstetric disorders Pre-existing type 2 diabetes mellitus in in first trimester ([facility])- Primary Diabetes mellitus of mother, complicating , childbirth, or the puerperium, unspecified as to episode of care Obesity affecting in first trimester, unspecified obesity type ([facility]) 33 weeks gestation of ([facility]) state, incidental Pre-existing type 2 diabetes mellitus in in third trimester ([facility])- Primary Diabetes mellitus of mother, complicating , childbirth, or the puerperium, unspecified as to episode of care History of pre-eclampsia Personal history of other genital system and obstetric disorders H/O macrosomia in in prior , currently ([facility]) with other poor obstetric history 33 weeks gestation of ([facility]) state, incidental Request for sterilization Herpes simplex type 2 (HSV-2) infection affecting , antepartum, unspecified trimester ([facility]) documented in this encounter [facility]* Diagnosis Pre-existing type 2 diabetes mellitus in in first trimester ([facility])- Primary Diabetes mellitus of mother, complicating , childbirth, or the puerperium, unspecified as to episode of care History of pre-eclampsia Personal history of other genital system and obstetric disorders H/O macrosomia in infant in prior , currently ([facility]) with other poor obstetric history 17 weeks gestation of ([facility]) state, incidental Encounter for screening for malformation using ultrasound ([facility]) Obesity affecting in first trimester, unspecified obesity type ([facility])- Primary Herpes simplex type 2 (HSV-2) infection affecting , antepartum, unspecified trimester ([facility]) Pre-existing type 2 diabetes mellitus in in first trimester ([facility]) Diabetes mellitus of mother, complicating , childbirth, or the puerperium, unspecified as to episode of care 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 Encounter for supervision of high risk in first trimester, antepartum ([facility]) 21 weeks gestation of ([facility]) state, incidental Pre-existing type 2 diabetes mellitus in in first trimester ([facility])- Primary Diabetes mellitus of mother, complicating , childbirth, or the puerperium, unspecified as to episode of care Obesity affecting in first trimester, unspecified obesity type ([facility]) History of pre-eclampsia Personal history of other genital system and obstetric disorders H/O macrosomia in in prior , currently ([facility]) with other poor obstetric history History of bipolar disorder Personal history of affective disorder 21 weeks gestation of ([facility]) state, incidental Encounter for anatomic survey ([facility]) Encounter for anatomic survey Supervision of high risk in third trimester ([facility])- Primary Unspecified high-risk History of pre-eclampsia Personal history of other genital system and obstetric disorders 29 weeks gestation of ([facility]) state, incidental Pre-existing type 2 diabetes mellitus in in third trimester ([facility]) Diabetes mellitus of mother, complicating , childbirth, or the puerperium, unspecified as to episode of care 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 Pre-existing type 2 diabetes mellitus in in first trimester ([facility]) Diabetes mellitus of mother, complicating , childbirth, or the puerperium, unspecified as to episode of care Tobacco smoking complicating in first trimester ([facility]) Tobacco use disorder complicating , childbirth, or the puerperium, antepartum condition or complication History of recurrent UTI (urinary tract infection) Personal history of urinary (tract) infection 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, 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, 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 ([facility]) Herpes simplex type 2 (HSV-2) infection affecting , antepartum, unspecified trimester ([facility]) Supervision of high risk in third trimester ([facility])- Primary Unspecified high-risk Pre-existing type 2 diabetes mellitus in in third trimester ([facility]) Diabetes mellitus of mother, complicating , childbirth, or the puerperium, unspecified as to episode of care Herpes simplex type 2 (HSV-2) infection affecting , antepartum, unspecified trimester ([facility]) H/O macrosomia in in prior , currently ([facility]) with other poor obstetric history History of pre-eclampsia Personal history of other genital system and obstetric disorders 31 weeks gestation of ([facility]) state, incidental Supervision of high risk in third trimester ([facility])- Primary Unspecified high-risk Pre-existing type 2 diabetes mellitus in in third trimester ([facility]) Diabetes mellitus of mother, complicating , childbirth, or the puerperium, unspecified as to episode of care Exposure to parvovirus Contact with or exposure to other viral diseases History of pre-eclampsia Personal history of other genital system and obstetric disorders Pre-existing type 2 diabetes mellitus in in third trimester ([facility])- Primary Diabetes mellitus of mother, complicating , childbirth, or the puerperium, unspecified as to episode of care History of pre-eclampsia Personal history of other genital system and obstetric disorders H/O macrosomia in infant in prior , currently ([facility]) with other poor obstetric history 33 weeks gestation of ([facility]) state, incidental Request for sterilization Herpes simplex type 2 (HSV-2) infection affecting , antepartum, unspecified trimester ([facility]) * Assessment & Plan Note [...] H/O macrosomia in in prior , currently ([facility]) EFW on growth US shows AGA and expected to be smaller than 1st baby. Growth US with [facility] today. Orders: URINE OB DIP B/O * Assessment & Plan Note - William Gramajo MD - 11/02/2024 11:08 AM EDTAssociated Problem(s): Herpes simplex type 2 (HSV-2) infection affecting , antepartum, unspecified trimester ([facility]) On acyclovir prophylaxis documented in this encounter [facility]* Diagnosis Pre-existing type 2 diabetes mellitus in in first trimester ([facility])- Primary Diabetes mellitus of mother, complicating , childbirth, or the puerperium, unspecified as to episode of care History of pre-eclampsia Personal history of other genital system and obstetric disorders H/O macrosomia in infant in prior , currently ([facility]) with other poor obstetric history 17 weeks gestation of ([facility]) state, incidental Encounter for screening for malformation using ultrasound ([facility]) Obesity affecting in first trimester, unspecified obesity type ([facility])- Primary Herpes simplex type 2 (HSV-2) infection affecting , antepartum, unspecified trimester ([facility]) Pre-existing type 2 diabetes mellitus in in first trimester ([facility]) Diabetes mellitus of mother, complicating , childbirth, or the puerperium, unspecified as to episode of care 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 Encounter for supervision of high risk in first trimester, antepartum ([facility]) 21 weeks gestation of ([facility]) state, incidental Pre-existing type 2 diabetes mellitus in in first trimester ([facility])- Primary Diabetes mellitus of mother, complicating , childbirth, or the puerperium, unspecified as to episode of care Obesity affecting in first trimester, unspecified obesity type ([facility]) History of pre-eclampsia Personal history of other genital system and obstetric disorders H/O macrosomia in infant in prior , currently ([facility]) with other poor obstetric history History of bipolar disorder Personal history of affective disorder 21 weeks gestation of ([facility]) state, incidental Encounter for anatomic survey ([facility]) Encounter for anatomic survey Supervision of high risk in third trimester ([facility])- Primary Unspecified high-risk History of pre-eclampsia Personal history of other genital system and obstetric disorders 29 weeks gestation of ([facility]) state, incidental Pre-existing type 2 diabetes mellitus in in third trimester ([facility]) Diabetes mellitus of mother, complicating , childbirth, or the puerperium, unspecified as to episode of care 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 Pre-existing type 2 diabetes mellitus in in first trimester ([facility]) Diabetes mellitus of mother, complicating , childbirth, or the puerperium, unspecified as to episode of care Tobacco smoking complicating in first trimester ([facility]) Tobacco use disorder complicating , childbirth, or the puerperium, antepartum condition or complication History of recurrent UTI (urinary tract infection) Personal history of urinary (tract) infection 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, 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, 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 residential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 ([facility]) Herpes simplex type 2 (HSV-2) infection affecting , antepartum, unspecified trimester ([facility]) Supervision of high risk in third trimester ([facility])- Primary Unspecified high-risk Pre-existing type 2 diabetes mellitus in in third trimester ([facility]) Diabetes mellitus of mother, complicating , childbirth, or the puerperium, unspecified as to episode of care Herpes simplex type 2 (HSV-2) infection affecting , antepartum, unspecified trimester ([facility]) H/O macrosomia in in prior , currently ([facility]) with other poor obstetric history History of pre-eclampsia Personal history of other genital system and obstetric disorders 31 weeks gestation of ([facility]) state, incidental Supervision of high risk in third trimester ([facility])- Primary Unspecified high-risk Pre-existing type 2 diabetes mellitus in in third trimester ([facility]) Diabetes mellitus of mother, complicating , childbirth, or the puerperium, unspecified as to episode of care Exposure to parvovirus Contact with or exposure to other viral diseases History of pre-eclampsia Personal history of other genital system and obstetric disorders Pre-existing type 2 diabetes mellitus in in third trimester ([facility])- Primary Diabetes mellitus of mother, complicating , childbirth, or the puerperium, unspecified as to episode of care History of pre-eclampsia Personal history of other genital system and obstetric disorders H/O macrosomia in in prior , currently ([facility]) with other poor obstetric history 33 weeks gestation of ([facility]) state, incidental Request for sterilization Herpes simplex type 2 (HSV-2) infection affecting , antepartum, unspecified trimester ([facility]) Type 2 diabetes mellitus affecting in third trimester, antepartum ([facility])- Primary High-risk , third trimester ([facility]) documented in this encounter [facility]* Diagnosis Pre-existing type 2 diabetes mellitus in in first trimester ([facility])- Primary Diabetes mellitus of mother, complicating , childbirth, or the puerperium, unspecified as to episode of care History of pre-eclampsia Personal history of other genital system and obstetric disorders H/O macrosomia in infant in prior , currently ([facility]) with other poor obstetric history 17 weeks gestation of ([facility]) state, incidental Encounter for screening for malformation using ultrasound ([facility]) Obesity affecting in first trimester, unspecified obesity type ([facility])- Primary Herpes simplex type 2 (HSV-2) infection affecting , antepartum, unspecified trimester ([facility]) Pre-existing type 2 diabetes mellitus in in first trimester ([facility]) Diabetes mellitus of mother, complicating , childbirth, or the puerperium, unspecified as to episode of care 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 Encounter for supervision of high risk in first trimester, antepartum ([facility]) 21 weeks gestation of ([facility]) state, incidental Pre-existing type 2 diabetes mellitus in in first trimester ([facility])- Primary Diabetes mellitus of mother, complicating , childbirth, or the puerperium, unspecified as to episode of care Obesity affecting in first trimester, unspecified obesity type ([facility]) History of pre-eclampsia Personal history of other genital system and obstetric disorders H/O macrosomia in in prior , currently ([facility]) with other poor obstetric history History of bipolar disorder Personal history of affective disorder 21 weeks gestation of ([facility]) state, incidental Encounter for anatomic survey ([facility]) Encounter for anatomic survey Supervision of high risk in third trimester ([facility])- Primary Unspecified high-risk History of pre-eclampsia Personal history of other genital system and obstetric disorders 29 weeks gestation of ([facility]) state, incidental Pre-existing type 2 diabetes mellitus in in third trimester ([facility]) Diabetes mellitus of mother, complicating , childbirth, or the puerperium, unspecified as to episode of care 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 Pre-existing type 2 diabetes mellitus in in first trimester ([facility]) Diabetes mellitus of mother, complicating , childbirth, or the puerperium, unspecified as to episode of care Tobacco smoking complicating in first trimester ([facility]) Tobacco use disorder complicating , childbirth, or the puerperium, antepartum condition or complication History of recurrent UTI (urinary tract infection) Personal history of urinary (tract) infection 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, 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, 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 ([facility]) Herpes simplex type 2 (HSV-2) infection affecting , antepartum, unspecified trimester ([facility]) Supervision of high risk in third trimester ([facility])- Primary Unspecified high-risk Pre-existing type 2 diabetes mellitus in in third trimester ([facility]) Diabetes mellitus of mother, complicating , childbirth, or the puerperium, unspecified as to episode of care Herpes simplex type 2 (HSV-2) infection affecting , antepartum, unspecified trimester ([facility]) H/O macrosomia in infant in prior , currently ([facility]) with other poor obstetric history History of pre-eclampsia Personal history of other genital system and obstetric disorders 31 weeks gestation of ([facility]) state, incidental Supervision of high risk in third trimester ([facility])- Primary Unspecified high-risk Pre-existing type 2 diabetes mellitus in in third trimester ([facility]) Diabetes mellitus of mother, complicating , childbirth, or the puerperium, unspecified as to episode of care Exposure to parvovirus Contact with or exposure to other viral diseases History of pre-eclampsia Personal history of other genital system and obstetric disorders Pre-existing type 2 diabetes mellitus in in third trimester ([facility])- Primary Diabetes mellitus of mother, complicating , childbirth, or the puerperium, unspecified as to episode of care History of pre-eclampsia Personal history of other genital system and obstetric disorders H/O macrosomia in in prior , currently ([facility]) with other poor obstetric history 33 weeks gestation of ([facility]) state, incidental Request for sterilization Herpes simplex type 2 (HSV-2) infection affecting , antepartum, unspecified trimester ([facility]) Type 2 diabetes mellitus during , antepartum, third trimester ([facility])- Primary documented in this encounter [facility]* Diagnosis Pre-existing type 2 diabetes mellitus in in first trimester ([facility])- Primary Diabetes mellitus of mother, complicating , childbirth, or the puerperium, unspecified as to episode of care History of pre-eclampsia Personal history of other genital system and obstetric disorders H/O macrosomia in in prior , currently ([facility]) with other poor obstetric history 17 weeks gestation of ([facility]) state, incidental Encounter for screening for malformation using ultrasound ([facility]) Obesity affecting in first trimester, unspecified obesity type ([facility])- Primary Herpes simplex type 2 (HSV-2) infection affecting , antepartum, unspecified trimester ([facility]) Pre-existing type 2 diabetes mellitus in in first trimester ([facility]) Diabetes mellitus of mother, complicating , childbirth, or the puerperium, unspecified as to episode of care 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 Encounter for supervision of high risk in first trimester, antepartum ([facility]) 21 weeks gestation of ([facility]) state, incidental Pre-existing type 2 diabetes mellitus in in first trimester ([facility])- Primary Diabetes mellitus of mother, complicating , childbirth, or the puerperium, unspecified as to episode of care Obesity affecting in first trimester, unspecified obesity type ([facility]) History of pre-eclampsia Personal history of other genital system and obstetric disorders H/O macrosomia in infant in prior , currently ([facility]) with other poor obstetric history History of bipolar disorder Personal history of affective disorder 21 weeks gestation of ([facility]) state, incidental Encounter for anatomic survey ([facility]) Encounter for anatomic survey Supervision of high risk in third trimester ([facility])- Primary Unspecified high-risk History of pre-eclampsia Personal history of other genital system and obstetric disorders 29 weeks gestation of ([facility]) state, incidental Pre-existing type 2 diabetes mellitus in in third trimester ([facility]) Diabetes mellitus of mother, complicating , childbirth, or the puerperium, unspecified as to episode of care 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 Pre-existing type 2 diabetes mellitus in in first trimester ([facility]) Diabetes mellitus of mother, complicating , childbirth, or the puerperium, unspecified as to episode of care Tobacco smoking complicating in first trimester ([facility]) Tobacco use disorder complicating , childbirth, or the puerperium, antepartum condition or complication History of recurrent UTI (urinary tract infection) Personal history of urinary (tract) infection 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, 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, 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 ([facility]) Herpes simplex type 2 (HSV-2) infection affecting , antepartum, unspecified trimester ([facility]) Supervision of high risk in third trimester ([facility])- Primary Unspecified high-risk Pre-existing type 2 diabetes mellitus in in third trimester ([facility]) Diabetes mellitus of mother, complicating , childbirth, or the puerperium, unspecified as to episode of care Herpes simplex type 2 (HSV-2) infection affecting , antepartum, unspecified trimester ([facility]) H/O macrosomia in infant in prior , currently ([facility]) with other poor obstetric history History of pre-eclampsia Personal history of other genital system and obstetric disorders 31 weeks gestation of ([facility]) state, incidental Supervision of high risk in third trimester ([facility])- Primary Unspecified high-risk Pre-existing type 2 diabetes mellitus in in third trimester ([facility]) Diabetes mellitus of mother, complicating , childbirth, or the puerperium, unspecified as to episode of care Exposure to parvovirus Contact with or exposure to other viral diseases History of pre-eclampsia Personal history of other genital system and obstetric disorders Pre-existing type 2 diabetes mellitus in in third trimester ([facility])- Primary Diabetes mellitus of mother, complicating , childbirth, or the puerperium, unspecified as to episode of care History of pre-eclampsia Personal history of other genital system and obstetric disorders H/O macrosomia in in prior , currently ([facility]) with other poor obstetric history 33 weeks gestation of ([facility]) state, incidental Request for sterilization Herpes simplex type 2 (HSV-2) infection affecting , antepartum, unspecified trimester ([facility]) complication before ([facility]) Other specified complication, antepartum documented in this encounter [facility]* Diagnosis Pre-existing type 2 diabetes mellitus in in first trimester ([facility])- Primary Diabetes mellitus of mother, complicating , childbirth, or the puerperium, unspecified as to episode of care History of pre-eclampsia Personal history of other genital system and obstetric disorders H/O macrosomia in infant in prior , currently ([facility]) with other poor obstetric history 17 weeks gestation of ([facility]) state, incidental Encounter for screening for malformation using ultrasound ([facility]) Obesity affecting in first trimester, unspecified obesity type ([facility])- Primary Herpes simplex type 2 (HSV-2) infection affecting , antepartum, unspecified trimester ([facility]) Pre-existing type 2 diabetes mellitus in in first trimester ([facility]) Diabetes mellitus of mother, complicating , childbirth, or the puerperium, unspecified as to episode of care 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 Encounter for supervision of high risk in first trimester, antepartum ([facility]) 21 weeks gestation of ([facility]) state, incidental Pre-existing type 2 diabetes mellitus in in first trimester ([facility])- Primary Diabetes mellitus of mother, complicating , childbirth, or the puerperium, unspecified as to episode of care Obesity affecting in first trimester, unspecified obesity type ([facility]) History of pre-eclampsia Personal history of other genital system and obstetric disorders H/O macrosomia in in prior , currently ([facility]) with other poor obstetric history History of bipolar disorder Personal history of affective disorder 21 weeks gestation of ([facility]) state, incidental Encounter for anatomic survey ([facility]) Encounter for anatomic survey Supervision of high risk in third trimester ([facility])- Primary Unspecified high-risk History of pre-eclampsia Personal history of other genital system and obstetric disorders 29 weeks gestation of ([facility]) state, incidental Pre-existing type 2 diabetes mellitus in in third trimester ([facility]) Diabetes mellitus of mother, complicating , childbirth, or the puerperium, unspecified as to episode of care 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 Pre-existing type 2 diabetes mellitus in in first trimester ([facility]) Diabetes mellitus of mother, complicating , childbirth, or the puerperium, unspecified as to episode of care Tobacco smoking complicating in first trimester ([facility]) Tobacco use disorder complicating , childbirth, or the puerperium, antepartum condition or complication History of recurrent UTI (urinary tract infection) Personal history of urinary (tract) infection 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, 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, 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 residential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 ([facility]) Herpes simplex type 2 (HSV-2) infection affecting , antepartum, unspecified trimester ([facility]) Supervision of high risk in third trimester ([facility])- Primary Unspecified high-risk Pre-existing type 2 diabetes mellitus in in third trimester ([facility]) Diabetes mellitus of mother, complicating , childbirth, or the puerperium, unspecified as to episode of care Herpes simplex type 2 (HSV-2) infection affecting , antepartum, unspecified trimester ([facility]) H/O macrosomia in infant in prior , currently ([facility]) with other poor obstetric history History of pre-eclampsia Personal history of other genital system and obstetric disorders 31 weeks gestation of ([facility]) state, incidental Supervision of high risk in third trimester ([facility])- Primary Unspecified high-risk Pre-existing type 2 diabetes mellitus in in third trimester ([facility]) Diabetes mellitus of mother, complicating , childbirth, or the puerperium, unspecified as to episode of care Exposure to parvovirus Contact with or exposure to other viral diseases History of pre-eclampsia Personal history of other genital system and obstetric disorders Pre-existing type 2 diabetes mellitus in in third trimester ([facility])- Primary Diabetes mellitus of mother, complicating , childbirth, or the puerperium, unspecified as to episode of care History of pre-eclampsia Personal history of other genital system and obstetric disorders H/O macrosomia in infant in prior , currently ([facility]) with other poor obstetric history 33 weeks gestation of ([facility]) state, incidental Request for sterilization Herpes simplex type 2 (HSV-2) infection affecting , antepartum, unspecified trimester ([facility]) 33 weeks gestation of ([facility])- Primary state, incidental complication before ([facility]) Other specified complication, antepartum Pre-existing type 2 diabetes mellitus in in third trimester ([facility]) Diabetes mellitus of mother, complicating , childbirth, or the puerperium, unspecified as to episode of care Supervision of high risk in third trimester ([facility]) Unspecified high-risk pruritus, third trimester ([facility]) documented in this encounter [facility]* Diagnosis Pre-existing type 2 diabetes mellitus in in first trimester ([facility])- Primary Diabetes mellitus of mother, complicating , childbirth, or the puerperium, unspecified as to episode of care History of pre-eclampsia Personal history of other genital system and obstetric disorders H/O macrosomia in infant in prior , currently ([facility]) with other poor obstetric history 17 weeks gestation of ([facility]) state, incidental Encounter for screening for malformation using ultrasound ([facility]) Obesity affecting in first trimester, unspecified obesity type ([facility])- Primary Herpes simplex type 2 (HSV-2) infection affecting , antepartum, unspecified trimester ([facility]) Pre-existing type 2 diabetes mellitus in in first trimester ([facility]) Diabetes mellitus of mother, complicating , childbirth, or the puerperium, unspecified as to episode of care 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 Encounter for supervision of high risk in first trimester, antepartum ([facility]) 21 weeks gestation of ([facility]) state, incidental Pre-existing type 2 diabetes mellitus in in first trimester ([facility])- Primary Diabetes mellitus of mother, complicating , childbirth, or the puerperium, unspecified as to episode of care Obesity affecting in first trimester, unspecified obesity type ([facility]) History of pre-eclampsia Personal history of other genital system and obstetric disorders H/O macrosomia in infant in prior , currently ([facility]) with other poor obstetric history History of bipolar disorder Personal history of affective disorder 21 weeks gestation of ([facility]) state, incidental Encounter for anatomic survey ([facility]) Encounter for anatomic survey Supervision of high risk in third trimester ([facility])- Primary Unspecified high-risk History of pre-eclampsia Personal history of other genital system and obstetric disorders 29 weeks gestation of ([facility]) state, incidental Pre-existing type 2 diabetes mellitus in in third trimester ([facility]) Diabetes mellitus of mother, complicating , childbirth, or the puerperium, unspecified as to episode of care 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 Pre-existing type 2 diabetes mellitus in in first trimester ([facility]) Diabetes mellitus of mother, complicating , childbirth, or the puerperium, unspecified as to episode of care Tobacco smoking complicating in first trimester ([facility]) Tobacco use disorder complicating , childbirth, or the puerperium, antepartum condition or complication History of recurrent UTI (urinary tract infection) Personal history of urinary (tract) infection 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, 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, 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 ([facility]) Herpes simplex type 2 (HSV-2) infection affecting , antepartum, unspecified trimester ([facility]) Supervision of high risk in third trimester ([facility])- Primary Unspecified high-risk Pre-existing type 2 diabetes mellitus in in third trimester ([facility]) Diabetes mellitus of mother, complicating , childbirth, or the puerperium, unspecified as to episode of care Herpes simplex type 2 (HSV-2) infection affecting , antepartum, unspecified trimester ([facility]) H/O macrosomia in in prior , currently ([facility]) with other poor obstetric history History of pre-eclampsia Personal history of other genital system and obstetric disorders 31 weeks gestation of ([facility]) state, incidental Supervision of high risk in third trimester ([facility])- Primary Unspecified high-risk Pre-existing type 2 diabetes mellitus in in third trimester ([facility]) Diabetes mellitus of mother, complicating , childbirth, or the puerperium, unspecified as to episode of care Exposure to parvovirus Contact with or exposure to other viral diseases History of pre-eclampsia Personal history of other genital system and obstetric disorders Pre-existing type 2 diabetes mellitus in in third trimester ([facility])- Primary Diabetes mellitus of mother, complicating , childbirth, or the puerperium, unspecified as to episode of care History of pre-eclampsia Personal history of other genital system and obstetric disorders H/O macrosomia in infant in prior , currently ([facility]) with other poor obstetric history 33 weeks gestation of ([facility]) state, incidental Request for sterilization Herpes simplex type 2 (HSV-2) infection affecting , antepartum, unspecified trimester ([facility]) Pre-existing type 2 diabetes mellitus in in first trimester ([facility])- Primary Diabetes mellitus of mother, complicating , childbirth, or the puerperium, unspecified as to episode of care 34 weeks gestation of ([facility]) state, incidental documented in this encounter [facility] note* Diagnosis Pre-existing type 2 diabetes mellitus in in first trimester ([facility])- Primary Diabetes mellitus of mother, complicating , childbirth, or the puerperium, unspecified as to episode of care History of pre-eclampsia Personal history of other genital system and obstetric disorders H/O macrosomia in in prior , currently ([facility]) with other poor obstetric history 17 weeks gestation of ([facility]) state, incidental Encounter for screening for malformation using ultrasound ([facility]) Obesity affecting in first trimester, unspecified obesity type ([facility])- Primary Herpes simplex type 2 (HSV-2) infection affecting , antepartum, unspecified trimester ([facility]) Pre-existing type 2 diabetes mellitus in in first trimester ([facility]) Diabetes mellitus of mother, complicating , childbirth, or the puerperium, unspecified as to episode of care 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 Encounter for supervision of high risk in first trimester, antepartum ([facility]) 21 weeks gestation of ([facility]) state, incidental Pre-existing type 2 diabetes mellitus in in first trimester ([facility])- Primary Diabetes mellitus of mother, complicating , childbirth, or the puerperium, unspecified as to episode of care Obesity affecting in first trimester, unspecified obesity type ([facility]) History of pre-eclampsia Personal history of other genital system and obstetric disorders H/O macrosomia in infant in prior , currently ([facility]) with other poor obstetric history History of bipolar disorder Personal history of affective disorder 21 weeks gestation of ([facility]) state, incidental Encounter for anatomic survey ([facility]) Encounter for anatomic survey Supervision of high risk in third trimester ([facility])- Primary Unspecified high-risk History of pre-eclampsia Personal history of other genital system and obstetric disorders 29 weeks gestation of ([facility]) state, incidental Pre-existing type 2 diabetes mellitus in in third trimester ([facility]) Diabetes mellitus of mother, complicating , childbirth, or the puerperium, unspecified as to episode of care 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 Pre-existing type 2 diabetes mellitus in in first trimester ([facility]) Diabetes mellitus of mother, complicating , childbirth, or the puerperium, unspecified as to episode of care Tobacco smoking complicating in first trimester ([facility]) Tobacco use disorder complicating , childbirth, or the puerperium, antepartum condition or complication History of recurrent UTI (urinary tract infection) Personal history of urinary (tract) infection 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, 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, 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 residential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 ([facility]) Herpes simplex type 2 (HSV-2) infection affecting , antepartum, unspecified trimester ([facility]) Supervision of high risk in third trimester ([facility])- Primary Unspecified high-risk Pre-existing type 2 diabetes mellitus in in third trimester ([facility]) Diabetes mellitus of mother, complicating , childbirth, or the puerperium, unspecified as to episode of care Herpes simplex type 2 (HSV-2) infection affecting , antepartum, unspecified trimester ([facility]) H/O macrosomia in infant in prior , currently ([facility]) with other poor obstetric history History of pre-eclampsia Personal history of other genital system and obstetric disorders 31 weeks gestation of ([facility]) state, incidental Supervision of high risk in third trimester ([facility])- Primary Unspecified high-risk Pre-existing type 2 diabetes mellitus in in third trimester ([facility]) Diabetes mellitus of mother, complicating , childbirth, or the puerperium, unspecified as to episode of care Exposure to parvovirus Contact with or exposure to other viral diseases History of pre-eclampsia Personal history of other genital system and obstetric disorders Pre-existing type 2 diabetes mellitus in in third trimester ([facility])- Primary Diabetes mellitus of mother, complicating , childbirth, or the puerperium, unspecified as to episode of care History of pre-eclampsia Personal history of other genital system and obstetric disorders H/O macrosomia in infant in prior , currently ([facility]) with other poor obstetric history 33 weeks gestation of ([facility]) state, incidental Request for sterilization Herpes simplex type 2 (HSV-2) infection affecting , antepartum, unspecified trimester ([facility]) Pre-existing type 2 diabetes mellitus in in third trimester ([facility])- Primary Diabetes mellitus of mother, complicating , childbirth, or the puerperium, unspecified as to episode of care pruritus, third trimester ([facility]) History of pre-eclampsia Personal history of other genital system and obstetric disorders H/O macrosomia in in prior , currently ([facility]) with other poor obstetric history 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 note* Diagnosis Pre-existing type 2 diabetes mellitus in in first trimester ([facility])- Primary Diabetes mellitus of mother, complicating , childbirth, or the puerperium, unspecified as to episode of care History of pre-eclampsia Personal history of other genital system and obstetric disorders H/O macrosomia in infant in prior , currently ([facility]) with other poor obstetric history 17 weeks gestation of ([facility]) state, incidental Encounter for screening for malformation using ultrasound ([facility]) Obesity affecting in first trimester, unspecified obesity type ([facility])- Primary Herpes simplex type 2 (HSV-2) infection affecting , antepartum, unspecified trimester ([facility]) Pre-existing type 2 diabetes mellitus in in first trimester ([facility]) Diabetes mellitus of mother, complicating , childbirth, or the puerperium, unspecified as to episode of care 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 Encounter for supervision of high risk in first trimester, antepartum ([facility]) 21 weeks gestation of ([facility]) state, incidental Pre-existing type 2 diabetes mellitus in in first trimester ([facility])- Primary Diabetes mellitus of mother, complicating , childbirth, or the puerperium, unspecified as to episode of care Obesity affecting in first trimester, unspecified obesity type ([facility]) History of pre-eclampsia Personal history of other genital system and obstetric disorders H/O macrosomia in in prior , currently ([facility]) with other poor obstetric history History of bipolar disorder Personal history of affective disorder 21 weeks gestation of ([facility]) state, incidental Encounter for anatomic survey ([facility]) Encounter for anatomic survey Supervision of high risk in third trimester ([facility])- Primary Unspecified high-risk History of pre-eclampsia Personal history of other genital system and obstetric disorders 29 weeks gestation of ([facility]) state, incidental Pre-existing type 2 diabetes mellitus in in third trimester ([facility]) Diabetes mellitus of mother, complicating , childbirth, or the puerperium, unspecified as to episode of care 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 Pre-existing type 2 diabetes mellitus in in first trimester ([facility]) Diabetes mellitus of mother, complicating , childbirth, or the puerperium, unspecified as to episode of care Tobacco smoking complicating in first trimester ([facility]) Tobacco use disorder complicating , childbirth, or the puerperium, antepartum condition or complication History of recurrent UTI (urinary tract infection) Personal history of urinary (tract) infection 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, 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, 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 ([facility]) Herpes simplex type 2 (HSV-2) infection affecting , antepartum, unspecified trimester ([facility]) Supervision of high risk in third trimester ([facility])- Primary Unspecified high-risk Pre-existing type 2 diabetes mellitus in in third trimester ([facility]) Diabetes mellitus of mother, complicating , childbirth, or the puerperium, unspecified as to episode of care Herpes simplex type 2 (HSV-2) infection affecting , antepartum, unspecified trimester ([facility]) H/O macrosomia in in prior , currently ([facility]) with other poor obstetric history History of pre-eclampsia Personal history of other genital system and obstetric disorders 31 weeks gestation of ([facility]) state, incidental Supervision of high risk in third trimester ([facility])- Primary Unspecified high-risk Pre-existing type 2 diabetes mellitus in in third trimester ([facility]) Diabetes mellitus of mother, complicating , childbirth, or the puerperium, unspecified as to episode of care Exposure to parvovirus Contact with or exposure to other viral diseases History of pre-eclampsia Personal history of other genital system and obstetric disorders Pre-existing type 2 diabetes mellitus in in third trimester ([facility])- Primary Diabetes mellitus of mother, complicating , childbirth, or the puerperium, unspecified as to episode of care History of pre-eclampsia Personal history of other genital system and obstetric disorders H/O macrosomia in in prior , currently ([facility]) with other poor obstetric history 33 weeks gestation of ([facility]) state, incidental Request for sterilization Herpes simplex type 2 (HSV-2) infection affecting , antepartum, unspecified trimester ([facility]) Pre-existing type 2 diabetes mellitus in in third trimester ([facility])- Primary Diabetes mellitus of mother, complicating , childbirth, or the puerperium, unspecified as to episode of care 35 weeks gestation of ([facility]) state, incidental Supervision of high risk in third trimester ([facility]) Unspecified high-risk documented in this encounter [facility] note* Diagnosis Pre-existing type 2 diabetes mellitus in in first trimester ([facility])- Primary Diabetes mellitus of mother, complicating , childbirth, or the puerperium, unspecified as to episode of care History of pre-eclampsia Personal history of other genital system and obstetric disorders H/O macrosomia in infant in prior , currently ([facility]) with other poor obstetric history 17 weeks gestation of ([facility]) state, incidental Encounter for screening for malformation using ultrasound ([facility]) Obesity affecting in first trimester, unspecified obesity type ([facility])- Primary Herpes simplex type 2 (HSV-2) infection affecting , antepartum, unspecified trimester ([facility]) Pre-existing type 2 diabetes mellitus in in first trimester ([facility]) Diabetes mellitus of mother, complicating , childbirth, or the puerperium, unspecified as to episode of care 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 Encounter for supervision of high risk in first trimester, antepartum ([facility]) 21 weeks gestation of ([facility]) state, incidental Pre-existing type 2 diabetes mellitus in in first trimester ([facility])- Primary Diabetes mellitus of mother, complicating , childbirth, or the puerperium, unspecified as to episode of care Obesity affecting in first trimester, unspecified obesity type ([facility]) History of pre-eclampsia Personal history of other genital system and obstetric disorders H/O macrosomia in in prior , currently ([facility]) with other poor obstetric history History of bipolar disorder Personal history of affective disorder 21 weeks gestation of ([facility]) state, incidental Encounter for anatomic survey ([facility]) Encounter for anatomic survey Supervision of high risk in third trimester ([facility])- Primary Unspecified high-risk History of pre-eclampsia Personal history of other genital system and obstetric disorders 29 weeks gestation of ([facility]) state, incidental Pre-existing type 2 diabetes mellitus in in third trimester ([facility]) Diabetes mellitus of mother, complicating , childbirth, or the puerperium, unspecified as to episode of care 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 Pre-existing type 2 diabetes mellitus in in first trimester ([facility]) Diabetes mellitus of mother, complicating , childbirth, or the puerperium, unspecified as to episode of care Tobacco smoking complicating in first trimester ([facility]) Tobacco use disorder complicating , childbirth, or the puerperium, antepartum condition or complication History of recurrent UTI (urinary tract infection) Personal history of urinary (tract) infection 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, 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, 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 ([facility]) Herpes simplex type 2 (HSV-2) infection affecting , antepartum, unspecified trimester ([facility]) Supervision of high risk in third trimester ([facility])- Primary Unspecified high-risk Pre-existing type 2 diabetes mellitus in in third trimester ([facility]) Diabetes mellitus of mother, complicating , childbirth, or the puerperium, unspecified as to episode of care Herpes simplex type 2 (HSV-2) infection affecting , antepartum, unspecified trimester ([facility]) H/O macrosomia in infant in prior , currently ([facility]) with other poor obstetric history History of pre-eclampsia Personal history of other genital system and obstetric disorders 31 weeks gestation of ([facility]) state, incidental Supervision of high risk in third trimester ([facility])- Primary Unspecified high-risk Pre-existing type 2 diabetes mellitus in in third trimester ([facility]) Diabetes mellitus of mother, complicating , childbirth, or the puerperium, unspecified as to episode of care Exposure to parvovirus Contact with or exposure to other viral diseases History of pre-eclampsia Personal history of other genital system and obstetric disorders Pre-existing type 2 diabetes mellitus in in third trimester ([facility])- Primary Diabetes mellitus of mother, complicating , childbirth, or the puerperium, unspecified as to episode of care History of pre-eclampsia Personal history of other genital system and obstetric disorders H/O macrosomia in infant in prior , currently ([facility]) with other poor obstetric history 33 weeks gestation of ([facility]) state, incidental Request for sterilization Herpes simplex type 2 (HSV-2) infection affecting , antepartum, unspecified trimester ([facility]) Pre-existing type 2 diabetes mellitus in in first trimester ([facility])- Primary Diabetes mellitus of mother, complicating , childbirth, or the puerperium, unspecified as to episode of care 35 weeks gestation of ([facility]) state, incidental documented in this encounter [facility] note* Diagnosis Pre-existing type 2 diabetes mellitus in in first trimester ([facility])- Primary Diabetes mellitus of mother, complicating , childbirth, or the puerperium, unspecified as to episode of care History of pre-eclampsia Personal history of other genital system and obstetric disorders H/O macrosomia in infant in prior , currently ([facility]) with other poor obstetric history 17 weeks gestation of ([facility]) state, incidental Encounter for screening for malformation using ultrasound ([facility]) Obesity affecting in first trimester, unspecified obesity type ([facility])- Primary Herpes simplex type 2 (HSV-2) infection affecting , antepartum, unspecified trimester ([facility]) Pre-existing type 2 diabetes mellitus in in first trimester ([facility]) Diabetes mellitus of mother, complicating , childbirth, or the puerperium, unspecified as to episode of care 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 Encounter for supervision of high risk in first trimester, antepartum ([facility]) 21 weeks gestation of ([facility]) state, incidental Pre-existing type 2 diabetes mellitus in in first trimester ([facility])- Primary Diabetes mellitus of mother, complicating , childbirth, or the puerperium, unspecified as to episode of care Obesity affecting in first trimester, unspecified obesity type ([facility]) History of pre-eclampsia Personal history of other genital system and obstetric disorders H/O macrosomia in in prior , currently ([facility]) with other poor obstetric history History of bipolar disorder Personal history of affective disorder 21 weeks gestation of ([facility]) state, incidental Encounter for anatomic survey ([facility]) Encounter for anatomic survey Supervision of high risk in third trimester ([facility])- Primary Unspecified high-risk History of pre-eclampsia Personal history of other genital system and obstetric disorders 29 weeks gestation of ([facility]) state, incidental Pre-existing type 2 diabetes mellitus in in third trimester ([facility]) Diabetes mellitus of mother, complicating , childbirth, or the puerperium, unspecified as to episode of care 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 Pre-existing type 2 diabetes mellitus in in first trimester ([facility]) Diabetes mellitus of mother, complicating , childbirth, or the puerperium, unspecified as to episode of care Tobacco smoking complicating in first trimester ([facility]) Tobacco use disorder complicating , childbirth, or the puerperium, antepartum condition or complication History of recurrent UTI (urinary tract infection) Personal history of urinary (tract) infection 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, 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, 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 ([facility]) Herpes simplex type 2 (HSV-2) infection affecting , antepartum, unspecified trimester ([facility]) Supervision of high risk in third trimester ([facility])- Primary Unspecified high-risk Pre-existing type 2 diabetes mellitus in in third trimester ([facility]) Diabetes mellitus of mother, complicating , childbirth, or the puerperium, unspecified as to episode of care Herpes simplex type 2 (HSV-2) infection affecting , antepartum, unspecified trimester ([facility]) H/O macrosomia in in prior , currently ([facility]) with other poor obstetric history History of pre-eclampsia Personal history of other genital system and obstetric disorders 31 weeks gestation of ([facility]) state, incidental Supervision of high risk in third trimester ([facility])- Primary Unspecified high-risk Pre-existing type 2 diabetes mellitus in in third trimester ([facility]) Diabetes mellitus of mother, complicating , childbirth, or the puerperium, unspecified as to episode of care Exposure to parvovirus Contact with or exposure to other viral diseases History of pre-eclampsia Personal history of other genital system and obstetric disorders Pre-existing type 2 diabetes mellitus in in third trimester ([facility])- Primary Diabetes mellitus of mother, complicating , childbirth, or the puerperium, unspecified as to episode of care History of pre-eclampsia Personal history of other genital system and obstetric disorders H/O macrosomia in infant in prior , currently ([facility]) with other poor obstetric history 33 weeks gestation of ([facility]) state, incidental Request for sterilization Herpes simplex type 2 (HSV-2) infection affecting , antepartum, unspecified trimester ([facility]) Pre-existing type 2 diabetes mellitus in in third trimester ([facility])- Primary Diabetes mellitus of mother, complicating , childbirth, or the puerperium, unspecified as to episode of care 35 weeks gestation of ([facility]) state, incidental Vaginal itching Pruritus of genital organs documented in this encounter [facility]* Diagnosis Pre-existing type 2 diabetes mellitus in in first trimester ([facility])- Primary Diabetes mellitus of mother, complicating , childbirth, or the puerperium, unspecified as to episode of care History of pre-eclampsia Personal history of other genital system and obstetric disorders H/O macrosomia in in prior , currently ([facility]) with other poor obstetric history 17 weeks gestation of ([facility]) state, incidental Encounter for screening for malformation using ultrasound ([facility]) Obesity affecting in first trimester, unspecified obesity type ([facility])- Primary Herpes simplex type 2 (HSV-2) infection affecting , antepartum, unspecified trimester ([facility]) Pre-existing type 2 diabetes mellitus in in first trimester ([facility]) Diabetes mellitus of mother, complicating , childbirth, or the puerperium, unspecified as to episode of care 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 Encounter for supervision of high risk in first trimester, antepartum ([facility]) 21 weeks gestation of ([facility]) state, incidental Pre-existing type 2 diabetes mellitus in in first trimester ([facility])- Primary Diabetes mellitus of mother, complicating , childbirth, or the puerperium, unspecified as to episode of care Obesity affecting in first trimester, unspecified obesity type ([facility]) History of pre-eclampsia Personal history of other genital system and obstetric disorders H/O macrosomia in infant in prior , currently ([facility]) with other poor obstetric history History of bipolar disorder Personal history of affective disorder 21 weeks gestation of ([facility]) state, incidental Encounter for anatomic survey ([facility]) Encounter for anatomic survey Supervision of high risk in third trimester ([facility])- Primary Unspecified high-risk History of pre-eclampsia Personal history of other genital system and obstetric disorders 29 weeks gestation of ([facility]) state, incidental Pre-existing type 2 diabetes mellitus in in third trimester ([facility]) Diabetes mellitus of mother, complicating , childbirth, or the puerperium, unspecified as to episode of care 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 Pre-existing type 2 diabetes mellitus in in first trimester ([facility]) Diabetes mellitus of mother, complicating , childbirth, or the puerperium, unspecified as to episode of care Tobacco smoking complicating in first trimester ([facility]) Tobacco use disorder complicating , childbirth, or the puerperium, antepartum condition or complication History of recurrent UTI (urinary tract infection) Personal history of urinary (tract) infection 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, 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, 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 ([facility]) Herpes simplex type 2 (HSV-2) infection affecting , antepartum, unspecified trimester ([facility]) Supervision of high risk in third trimester ([facility])- Primary Unspecified high-risk Pre-existing type 2 diabetes mellitus in in third trimester ([facility]) Diabetes mellitus of mother, complicating , childbirth, or the puerperium, unspecified as to episode of care Herpes simplex type 2 (HSV-2) infection affecting , antepartum, unspecified trimester ([facility]) H/O macrosomia in in prior , currently ([facility]) with other poor obstetric history History of pre-eclampsia Personal history of other genital system and obstetric disorders 31 weeks gestation of ([facility]) state, incidental Supervision of high risk in third trimester ([facility])- Primary Unspecified high-risk Pre-existing type 2 diabetes mellitus in in third trimester ([facility]) Diabetes mellitus of mother, complicating , childbirth, or the puerperium, unspecified as to episode of care Exposure to parvovirus Contact with or exposure to other viral diseases History of pre-eclampsia Personal history of other genital system and obstetric disorders Pre-existing type 2 diabetes mellitus in in third trimester ([facility])- Primary Diabetes mellitus of mother, complicating , childbirth, or the puerperium, unspecified as to episode of care History of pre-eclampsia Personal history of other genital system and obstetric disorders H/O macrosomia in in prior , currently ([facility]) with other poor obstetric history 33 weeks gestation of ([facility]) state, incidental Request for sterilization Herpes simplex type 2 (HSV-2) infection affecting , antepartum, unspecified trimester ([facility]) Obesity affecting in first trimester, unspecified obesity type ([facility])- Primary Pre-existing type 2 diabetes mellitus in in first trimester ([facility]) Diabetes mellitus of mother, complicating , childbirth, or the puerperium, unspecified as to episode of care documented in this encounter [facility] note* Diagnosis Pre-existing type 2 diabetes mellitus in in first trimester ([facility])- Primary Diabetes mellitus of mother, complicating , childbirth, or the puerperium, unspecified as to episode of care History of pre-eclampsia Personal history of other genital system and obstetric disorders H/O macrosomia in infant in prior , currently ([facility]) with other poor obstetric history 17 weeks gestation of ([facility]) state, incidental Encounter for screening for malformation using ultrasound ([facility]) Obesity affecting in first trimester, unspecified obesity type ([facility])- Primary Herpes simplex type 2 (HSV-2) infection affecting , antepartum, unspecified trimester ([facility]) Pre-existing type 2 diabetes mellitus in in first trimester ([facility]) Diabetes mellitus of mother, complicating , childbirth, or the puerperium, unspecified as to episode of care 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 Encounter for supervision of high risk in first trimester, antepartum ([facility]) 21 weeks gestation of ([facility]) state, incidental Pre-existing type 2 diabetes mellitus in in first trimester ([facility])- Primary Diabetes mellitus of mother, complicating , childbirth, or the puerperium, unspecified as to episode of care Obesity affecting in first trimester, unspecified obesity type ([facility]) History of pre-eclampsia Personal history of other genital system and obstetric disorders H/O macrosomia in infant in prior , currently ([facility]) with other poor obstetric history History of bipolar disorder Personal history of affective disorder 21 weeks gestation of ([facility]) state, incidental Encounter for anatomic survey ([facility]) Encounter for anatomic survey Supervision of high risk in third trimester ([facility])- Primary Unspecified high-risk History of pre-eclampsia Personal history of other genital system and obstetric disorders 29 weeks gestation of ([facility]) state, incidental Pre-existing type 2 diabetes mellitus in in third trimester ([facility]) Diabetes mellitus of mother, complicating , childbirth, or the puerperium, unspecified as to episode of care 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 Pre-existing type 2 diabetes mellitus in in first trimester ([facility]) Diabetes mellitus of mother, complicating , childbirth, or the puerperium, unspecified as to episode of care Tobacco smoking complicating in first trimester ([facility]) Tobacco use disorder complicating , childbirth, or the puerperium, antepartum condition or complication History of recurrent UTI (urinary tract infection) Personal history of urinary (tract) infection 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, 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, 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 residential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 ([facility]) Herpes simplex type 2 (HSV-2) infection affecting , antepartum, unspecified trimester ([facility]) Supervision of high risk in third trimester ([facility])- Primary Unspecified high-risk Pre-existing type 2 diabetes mellitus in in third trimester ([facility]) Diabetes mellitus of mother, complicating , childbirth, or the puerperium, unspecified as to episode of care Herpes simplex type 2 (HSV-2) infection affecting , antepartum, unspecified trimester ([facility]) H/O macrosomia in infant in prior , currently ([facility]) with other poor obstetric history History of pre-eclampsia Personal history of other genital system and obstetric disorders 31 weeks gestation of ([facility]) state, incidental Supervision of high risk in third trimester ([facility])- Primary Unspecified high-risk Pre-existing type 2 diabetes mellitus in in third trimester ([facility]) Diabetes mellitus of mother, complicating , childbirth, or the puerperium, unspecified as to episode of care Exposure to parvovirus Contact with or exposure to other viral diseases History of pre-eclampsia Personal history of other genital system and obstetric disorders Pre-existing type 2 diabetes mellitus in in third trimester ([facility])- Primary Diabetes mellitus of mother, complicating , childbirth, or the puerperium, unspecified as to episode of care History of pre-eclampsia Personal history of other genital system and obstetric disorders H/O macrosomia in in prior , currently ([facility]) with other poor obstetric history 33 weeks gestation of ([facility]) state, incidental Request for sterilization Herpes simplex type 2 (HSV-2) infection affecting , antepartum, unspecified trimester ([facility]) History of herpes genitalis- Primary Personal history of other infectious and parasitic disease Pre-existing type 2 diabetes mellitus in in third trimester ([facility]) Diabetes mellitus of mother, complicating , childbirth, or the puerperium, unspecified as to episode of care History of pre-eclampsia Personal history of other genital system and obstetric disorders 36 weeks gestation of ([facility]) state, incidental * Assessment & Plan Note - William Gramajo MD - 11/25/2024 10:24 AM EDTAssociated Problem(s): History of pre-eclampsia Orders: URINE OB DIP B/O documented in this encounter [facility]* Diagnosis Pre-existing type 2 diabetes mellitus in in first trimester ([facility])- Primary Diabetes mellitus of mother, complicating , childbirth, or the puerperium, unspecified as to episode of care History of pre-eclampsia Personal history of other genital system and obstetric disorders H/O macrosomia in in prior , currently ([facility]) with other poor obstetric history 17 weeks gestation of ([facility]) state, incidental Encounter for screening for malformation using ultrasound ([facility]) Obesity affecting in first trimester, unspecified obesity type ([facility])- Primary Herpes simplex type 2 (HSV-2) infection affecting , antepartum, unspecified trimester ([facility]) Pre-existing type 2 diabetes mellitus in in first trimester ([facility]) Diabetes mellitus of mother, complicating , childbirth, or the puerperium, unspecified as to episode of care 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 Encounter for supervision of high risk in first trimester, antepartum ([facility]) 21 weeks gestation of ([facility]) state, incidental Pre-existing type 2 diabetes mellitus in in first trimester ([facility])- Primary Diabetes mellitus of mother, complicating , childbirth, or the puerperium, unspecified as to episode of care Obesity affecting in first trimester, unspecified obesity type ([facility]) History of pre-eclampsia Personal history of other genital system and obstetric disorders H/O macrosomia in infant in prior , currently ([facility]) with other poor obstetric history History of bipolar disorder Personal history of affective disorder 21 weeks gestation of ([facility]) state, incidental Encounter for anatomic survey ([facility]) Encounter for anatomic survey Supervision of high risk in third trimester ([facility])- Primary Unspecified high-risk History of pre-eclampsia Personal history of other genital system and obstetric disorders 29 weeks gestation of ([facility]) state, incidental Pre-existing type 2 diabetes mellitus in in third trimester ([facility]) Diabetes mellitus of mother, complicating , childbirth, or the puerperium, unspecified as to episode of care 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 Pre-existing type 2 diabetes mellitus in in first trimester ([facility]) Diabetes mellitus of mother, complicating , childbirth, or the puerperium, unspecified as to episode of care Tobacco smoking complicating in first trimester ([facility]) Tobacco use disorder complicating , childbirth, or the puerperium, antepartum condition or complication History of recurrent UTI (urinary tract infection) Personal history of urinary (tract) infection 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, 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, 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 ([facility]) Herpes simplex type 2 (HSV-2) infection affecting , antepartum, unspecified trimester ([facility]) Supervision of high risk in third trimester ([facility])- Primary Unspecified high-risk Pre-existing type 2 diabetes mellitus in in third trimester ([facility]) Diabetes mellitus of mother, complicating , childbirth, or the puerperium, unspecified as to episode of care Herpes simplex type 2 (HSV-2) infection affecting , antepartum, unspecified trimester ([facility]) H/O macrosomia in in prior , currently ([facility]) with other poor obstetric history History of pre-eclampsia Personal history of other genital system and obstetric disorders 31 weeks gestation of ([facility]) state, incidental Supervision of high risk in third trimester ([facility])- Primary Unspecified high-risk Pre-existing type 2 diabetes mellitus in in third trimester ([facility]) Diabetes mellitus of mother, complicating , childbirth, or the puerperium, unspecified as to episode of care Exposure to parvovirus Contact with or exposure to other viral diseases History of pre-eclampsia Personal history of other genital system and obstetric disorders Pre-existing type 2 diabetes mellitus in in third trimester ([facility])- Primary Diabetes mellitus of mother, complicating , childbirth, or the puerperium, unspecified as to episode of care History of pre-eclampsia Personal history of other genital system and obstetric disorders H/O macrosomia in in prior , currently ([facility]) with other poor obstetric history 33 weeks gestation of ([facility]) state, incidental Request for sterilization Herpes simplex type 2 (HSV-2) infection affecting , antepartum, unspecified trimester ([facility]) History of herpes genitalis- Primary Personal history of other infectious and parasitic disease Pre-existing type 2 diabetes mellitus in in third trimester ([facility]) Diabetes mellitus of mother, complicating , childbirth, or the puerperium, unspecified as to episode of care History of pre-eclampsia Personal history of other genital system and obstetric disorders 36 weeks gestation of ([facility]) state, incidental Pre-existing type 2 diabetes mellitus in in third trimester ([facility])- Primary Diabetes mellitus of mother, complicating , childbirth, or the puerperium, unspecified as to episode of care Pre-existing type 2 diabetes mellitus in in first trimester ([facility]) Diabetes mellitus of mother, complicating , childbirth, or the puerperium, unspecified as to episode of care documented in this encounter [facility] note* Diagnosis Pre-existing type 2 diabetes mellitus in in first trimester ([facility])- Primary Diabetes mellitus of mother, complicating , childbirth, or the puerperium, unspecified as to episode of care History of pre-eclampsia Personal history of other genital system and obstetric disorders H/O macrosomia in infant in prior , currently ([facility]) with other poor obstetric history 17 weeks gestation of ([facility]) state, incidental Encounter for screening for malformation using ultrasound ([facility]) Obesity affecting in first trimester, unspecified obesity type ([facility])- Primary Herpes simplex type 2 (HSV-2) infection affecting , antepartum, unspecified trimester ([facility]) Pre-existing type 2 diabetes mellitus in in first trimester ([facility]) Diabetes mellitus of mother, complicating , childbirth, or the puerperium, unspecified as to episode of care 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 Encounter for supervision of high risk in first trimester, antepartum ([facility]) 21 weeks gestation of ([facility]) state, incidental Pre-existing type 2 diabetes mellitus in in first trimester ([facility])- Primary Diabetes mellitus of mother, complicating , childbirth, or the puerperium, unspecified as to episode of care Obesity affecting in first trimester, unspecified obesity type ([facility]) History of pre-eclampsia Personal history of other genital system and obstetric disorders H/O macrosomia in in prior , currently ([facility]) with other poor obstetric history History of bipolar disorder Personal history of affective disorder 21 weeks gestation of ([facility]) state, incidental Encounter for anatomic survey ([facility]) Encounter for anatomic survey Supervision of high risk in third trimester ([facility])- Primary Unspecified high-risk History of pre-eclampsia Personal history of other genital system and obstetric disorders 29 weeks gestation of ([facility]) state, incidental Pre-existing type 2 diabetes mellitus in in third trimester ([facility]) Diabetes mellitus of mother, complicating , childbirth, or the puerperium, unspecified as to episode of care 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 Pre-existing type 2 diabetes mellitus in in first trimester ([facility]) Diabetes mellitus of mother, complicating , childbirth, or the puerperium, unspecified as to episode of care Tobacco smoking complicating in first trimester ([facility]) Tobacco use disorder complicating , childbirth, or the puerperium, antepartum condition or complication History of recurrent UTI (urinary tract infection) Personal history of urinary (tract) infection 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, 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, 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 residential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 ([facility]) Herpes simplex type 2 (HSV-2) infection affecting , antepartum, unspecified trimester ([facility]) Supervision of high risk in third trimester ([facility])- Primary Unspecified high-risk Pre-existing type 2 diabetes mellitus in in third trimester ([facility]) Diabetes mellitus of mother, complicating , childbirth, or the puerperium, unspecified as to episode of care Herpes simplex type 2 (HSV-2) infection affecting , antepartum, unspecified trimester ([facility]) H/O macrosomia in infant in prior , currently ([facility]) with other poor obstetric history History of pre-eclampsia Personal history of other genital system and obstetric disorders 31 weeks gestation of ([facility]) state, incidental Supervision of high risk in third trimester ([facility])- Primary Unspecified high-risk Pre-existing type 2 diabetes mellitus in in third trimester ([facility]) Diabetes mellitus of mother, complicating , childbirth, or the puerperium, unspecified as to episode of care Exposure to parvovirus Contact with or exposure to other viral diseases History of pre-eclampsia Personal history of other genital system and obstetric disorders Pre-existing type 2 diabetes mellitus in in third trimester ([facility])- Primary Diabetes mellitus of mother, complicating , childbirth, or the puerperium, unspecified as to episode of care History of pre-eclampsia Personal history of other genital system and obstetric disorders H/O macrosomia in in prior , currently ([facility]) with other poor obstetric history 33 weeks gestation of ([facility]) state, incidental Request for sterilization Herpes simplex type 2 (HSV-2) infection affecting , antepartum, unspecified trimester ([facility]) History of herpes genitalis- Primary Personal history of other infectious and parasitic disease Pre-existing type 2 diabetes mellitus in in third trimester ([facility]) Diabetes mellitus of mother, complicating , childbirth, or the puerperium, unspecified as to episode of care History of pre-eclampsia Personal history of other genital system and obstetric disorders 36 weeks gestation of ([facility]) state, incidental Pre-existing type 2 diabetes mellitus in in third trimester ([facility])- Primary Diabetes mellitus of mother, complicating , childbirth, or the puerperium, unspecified as to episode of care 37 weeks gestation of ([facility]) state, incidental Supervision of high risk in third trimester ([facility]) Unspecified high-risk documented in this encounter [facility]* Diagnosis Pre-existing type 2 diabetes mellitus in in first trimester ([facility])- Primary Diabetes mellitus of mother, complicating , childbirth, or the puerperium, unspecified as to episode of care History of pre-eclampsia Personal history of other genital system and obstetric disorders H/O macrosomia in infant in prior , currently ([facility]) with other poor obstetric history 17 weeks gestation of ([facility]) state, incidental Encounter for screening for malformation using ultrasound ([facility]) Obesity affecting in first trimester, unspecified obesity type ([facility])- Primary Herpes simplex type 2 (HSV-2) infection affecting , antepartum, unspecified trimester ([facility]) Pre-existing type 2 diabetes mellitus in in first trimester ([facility]) Diabetes mellitus of mother, complicating , childbirth, or the puerperium, unspecified as to episode of care 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 Encounter for supervision of high risk in first trimester, antepartum ([facility]) 21 weeks gestation of ([facility]) state, incidental Pre-existing type 2 diabetes mellitus in in first trimester ([facility])- Primary Diabetes mellitus of mother, complicating , childbirth, or the puerperium, unspecified as to episode of care Obesity affecting in first trimester, unspecified obesity type ([facility]) History of pre-eclampsia Personal history of other genital system and obstetric disorders H/O macrosomia in in prior , currently ([facility]) with other poor obstetric history History of bipolar disorder Personal history of affective disorder 21 weeks gestation of ([facility]) state, incidental Encounter for anatomic survey ([facility]) Encounter for anatomic survey Supervision of high risk in third trimester ([facility])- Primary Unspecified high-risk History of pre-eclampsia Personal history of other genital system and obstetric disorders 29 weeks gestation of ([facility]) state, incidental Pre-existing type 2 diabetes mellitus in in third trimester ([facility]) Diabetes mellitus of mother, complicating , childbirth, or the puerperium, unspecified as to episode of care 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 Pre-existing type 2 diabetes mellitus in in first trimester ([facility]) Diabetes mellitus of mother, complicating , childbirth, or the puerperium, unspecified as to episode of care Tobacco smoking complicating in first trimester ([facility]) Tobacco use disorder complicating , childbirth, or the puerperium, antepartum condition or complication History of recurrent UTI (urinary tract infection) Personal history of urinary (tract) infection 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, 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, 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 ([facility]) Herpes simplex type 2 (HSV-2) infection affecting , antepartum, unspecified trimester ([facility]) Supervision of high risk in third trimester ([facility])- Primary Unspecified high-risk Pre-existing type 2 diabetes mellitus in in third trimester ([facility]) Diabetes mellitus of mother, complicating , childbirth, or the puerperium, unspecified as to episode of care Herpes simplex type 2 (HSV-2) infection affecting , antepartum, unspecified trimester ([facility]) H/O macrosomia in in prior , currently ([facility]) with other poor obstetric history History of pre-eclampsia Personal history of other genital system and obstetric disorders 31 weeks gestation of ([facility]) state, incidental Supervision of high risk in third trimester ([facility])- Primary Unspecified high-risk Pre-existing type 2 diabetes mellitus in in third trimester ([facility]) Diabetes mellitus of mother, complicating , childbirth, or the puerperium, unspecified as to episode of care Exposure to parvovirus Contact with or exposure to other viral diseases History of pre-eclampsia Personal history of other genital system and obstetric disorders Pre-existing type 2 diabetes mellitus in in third trimester ([facility])- Primary Diabetes mellitus of mother, complicating , childbirth, or the puerperium, unspecified as to episode of care History of pre-eclampsia Personal history of other genital system and obstetric disorders H/O macrosomia in infant in prior , currently ([facility]) with other poor obstetric history 33 weeks gestation of ([facility]) state, incidental Request for sterilization Herpes simplex type 2 (HSV-2) infection affecting , antepartum, unspecified trimester ([facility]) History of herpes genitalis- Primary Personal history of other infectious and parasitic disease Pre-existing type 2 diabetes mellitus in in third trimester ([facility]) Diabetes mellitus of mother, complicating , childbirth, or the puerperium, unspecified as to episode of care History of pre-eclampsia Personal history of other genital system and obstetric disorders 36 weeks gestation of ([facility]) state, incidental Pre-existing type 2 diabetes mellitus in in first trimester ([facility])- Primary Diabetes mellitus of mother, complicating , childbirth, or the puerperium, unspecified as to episode of care 38 weeks gestation of ([facility]) state, incidental documented in this encounter [facility] note* Diagnosis Pre-existing type 2 diabetes mellitus in in first trimester ([facility])- Primary Diabetes mellitus of mother, complicating , childbirth, or the puerperium, unspecified as to episode of care History of pre-eclampsia Personal history of other genital system and obstetric disorders H/O macrosomia in infant in prior , currently ([facility]) with other poor obstetric history 17 weeks gestation of ([facility]) state, incidental Encounter for screening for malformation using ultrasound ([facility]) Obesity affecting in first trimester, unspecified obesity type ([facility])- Primary Herpes simplex type 2 (HSV-2) infection affecting , antepartum, unspecified trimester ([facility]) Pre-existing type 2 diabetes mellitus in in first trimester ([facility]) Diabetes mellitus of mother, complicating , childbirth, or the puerperium, unspecified as to episode of care 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 Encounter for supervision of high risk in first trimester, antepartum ([facility]) 21 weeks gestation of ([facility]) state, incidental Pre-existing type 2 diabetes mellitus in in first trimester ([facility])- Primary Diabetes mellitus of mother, complicating , childbirth, or the puerperium, unspecified as to episode of care Obesity affecting in first trimester, unspecified obesity type ([facility]) History of pre-eclampsia Personal history of other genital system and obstetric disorders H/O macrosomia in in prior , currently ([facility]) with other poor obstetric history History of bipolar disorder Personal history of affective disorder 21 weeks gestation of ([facility]) state, incidental Encounter for anatomic survey ([facility]) Encounter for anatomic survey Supervision of high risk in third trimester ([facility])- Primary Unspecified high-risk History of pre-eclampsia Personal history of other genital system and obstetric disorders 29 weeks gestation of ([facility]) state, incidental Pre-existing type 2 diabetes mellitus in in third trimester ([facility]) Diabetes mellitus of mother, complicating , childbirth, or the puerperium, unspecified as to episode of care 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 Pre-existing type 2 diabetes mellitus in in first trimester ([facility]) Diabetes mellitus of mother, complicating , childbirth, or the puerperium, unspecified as to episode of care Tobacco smoking complicating in first trimester ([facility]) Tobacco use disorder complicating , childbirth, or the puerperium, antepartum condition or complication History of recurrent UTI (urinary tract infection) Personal history of urinary (tract) infection 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, 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, 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 ([facility]) Herpes simplex type 2 (HSV-2) infection affecting , antepartum, unspecified trimester ([facility]) Supervision of high risk in third trimester ([facility])- Primary Unspecified high-risk Pre-existing type 2 diabetes mellitus in in third trimester ([facility]) Diabetes mellitus of mother, complicating , childbirth, or the puerperium, unspecified as to episode of care Herpes simplex type 2 (HSV-2) infection affecting , antepartum, unspecified trimester ([facility]) H/O macrosomia in infant in prior , currently ([facility]) with other poor obstetric history History of pre-eclampsia Personal history of other genital system and obstetric disorders 31 weeks gestation of ([facility]) state, incidental Supervision of high risk in third trimester ([facility])- Primary Unspecified high-risk Pre-existing type 2 diabetes mellitus in in third trimester ([facility]) Diabetes mellitus of mother, complicating , childbirth, or the puerperium, unspecified as to episode of care Exposure to parvovirus Contact with or exposure to other viral diseases History of pre-eclampsia Personal history of other genital system and obstetric disorders Pre-existing type 2 diabetes mellitus in in third trimester ([facility])- Primary Diabetes mellitus of mother, complicating , childbirth, or the puerperium, unspecified as to episode of care History of pre-eclampsia Personal history of other genital system and obstetric disorders H/O macrosomia in infant in prior , currently ([facility]) with other poor obstetric history 33 weeks gestation of ([facility]) state, incidental Request for sterilization Herpes simplex type 2 (HSV-2) infection affecting , antepartum, unspecified trimester ([facility]) History of herpes genitalis- Primary Personal history of other infectious and parasitic disease Pre-existing type 2 diabetes mellitus in in third trimester ([facility]) Diabetes mellitus of mother, complicating , childbirth, or the puerperium, unspecified as to episode of care History of pre-eclampsia Personal history of other genital system and obstetric disorders 36 weeks gestation of ([facility]) state, incidental Pre-existing type 2 diabetes mellitus in in third trimester ([facility])- Primary Diabetes mellitus of mother, complicating , childbirth, or the puerperium, unspecified as to episode of care Supervision of high risk in third trimester ([facility]) Unspecified high-risk History of pre-eclampsia Personal history of other genital system and obstetric disorders H/O macrosomia in in prior , currently ([facility]) with other poor obstetric history 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 38 weeks gestation of ([facility]) state, incidental documented in this encounter [facility]* Diagnosis Pre-existing type 2 diabetes mellitus in in first trimester ([facility])- Primary Diabetes mellitus of mother, complicating , childbirth, or the puerperium, unspecified as to episode of care History of pre-eclampsia Personal history of other genital system and obstetric disorders H/O macrosomia in in prior , currently ([facility]) with other poor obstetric history 17 weeks gestation of ([facility]) state, incidental Encounter for screening for malformation using ultrasound ([facility]) Obesity affecting in first trimester, unspecified obesity type ([facility])- Primary Herpes simplex type 2 (HSV-2) infection affecting , antepartum, unspecified trimester ([facility]) Pre-existing type 2 diabetes mellitus in in first trimester ([facility]) Diabetes mellitus of mother, complicating , childbirth, or the puerperium, unspecified as to episode of care 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 Encounter for supervision of high risk in first trimester, antepartum ([facility]) 21 weeks gestation of ([facility]) state, incidental Pre-existing type 2 diabetes mellitus in in first trimester ([facility])- Primary Diabetes mellitus of mother, complicating , childbirth, or the puerperium, unspecified as to episode of care Obesity affecting in first trimester, unspecified obesity type ([facility]) History of pre-eclampsia Personal history of other genital system and obstetric disorders H/O macrosomia in infant in prior , currently ([facility]) with other poor obstetric history History of bipolar disorder Personal history of affective disorder 21 weeks gestation of ([facility]) state, incidental Encounter for anatomic survey ([facility]) Encounter for anatomic survey Supervision of high risk in third trimester ([facility])- Primary Unspecified high-risk History of pre-eclampsia Personal history of other genital system and obstetric disorders 29 weeks gestation of ([facility]) state, incidental Pre-existing type 2 diabetes mellitus in in third trimester ([facility]) Diabetes mellitus of mother, complicating , childbirth, or the puerperium, unspecified as to episode of care 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 Pre-existing type 2 diabetes mellitus in in first trimester ([facility]) Diabetes mellitus of mother, complicating , childbirth, or the puerperium, unspecified as to episode of care Tobacco smoking complicating in first trimester ([facility]) Tobacco use disorder complicating , childbirth, or the puerperium, antepartum condition or complication History of recurrent UTI (urinary tract infection) Personal history of urinary (tract) infection 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, 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, 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 ([facility]) Herpes simplex type 2 (HSV-2) infection affecting , antepartum, unspecified trimester ([facility]) Supervision of high risk in third trimester ([facility])- Primary Unspecified high-risk Pre-existing type 2 diabetes mellitus in in third trimester ([facility]) Diabetes mellitus of mother, complicating , childbirth, or the puerperium, unspecified as to episode of care Herpes simplex type 2 (HSV-2) infection affecting , antepartum, unspecified trimester ([facility]) H/O macrosomia in infant in prior , currently ([facility]) with other poor obstetric history History of pre-eclampsia Personal history of other genital system and obstetric disorders 31 weeks gestation of ([facility]) state, incidental Supervision of high risk in third trimester ([facility])- Primary Unspecified high-risk Pre-existing type 2 diabetes mellitus in in third trimester ([facility]) Diabetes mellitus of mother, complicating , childbirth, or the puerperium, unspecified as to episode of care Exposure to parvovirus Contact with or exposure to other viral diseases History of pre-eclampsia Personal history of other genital system and obstetric disorders Pre-existing type 2 diabetes mellitus in in third trimester ([facility])- Primary Diabetes mellitus of mother, complicating , childbirth, or the puerperium, unspecified as to episode of care History of pre-eclampsia Personal history of other genital system and obstetric disorders H/O macrosomia in infant in prior , currently ([facility]) with other poor obstetric history 33 weeks gestation of ([facility]) state, incidental Request for sterilization Herpes simplex type 2 (HSV-2) infection affecting , antepartum, unspecified trimester ([facility]) History of herpes genitalis- Primary Personal history of other infectious and parasitic disease Pre-existing type 2 diabetes mellitus in in third trimester ([facility]) Diabetes mellitus of mother, complicating , childbirth, or the puerperium, unspecified as to episode of care History of pre-eclampsia Personal history of other genital system and obstetric disorders 36 weeks gestation of ([facility]) state, incidental care and examination immediately after delivery ([facility])- Primary care and examination immediately after delivery documented in this encounter [facility]* Diagnosis Pre-existing type 2 diabetes mellitus in in first trimester ([facility])- Primary Diabetes mellitus of mother, complicating , childbirth, or the puerperium, unspecified as to episode of care History of pre-eclampsia Personal history of other genital system and obstetric disorders H/O macrosomia in in prior , currently ([facility]) with other poor obstetric history 17 weeks gestation of ([facility]) state, incidental Encounter for screening for malformation using ultrasound ([facility]) Obesity affecting in first trimester, unspecified obesity type ([facility])- Primary Herpes simplex type 2 (HSV-2) infection affecting , antepartum, unspecified trimester ([facility]) Pre-existing type 2 diabetes mellitus in in first trimester ([facility]) Diabetes mellitus of mother, complicating , childbirth, or the puerperium, unspecified as to episode of care 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 Encounter for supervision of high risk in first trimester, antepartum ([facility]) 21 weeks gestation of ([facility]) state, incidental Pre-existing type 2 diabetes mellitus in in first trimester ([facility])- Primary Diabetes mellitus of mother, complicating , childbirth, or the puerperium, unspecified as to episode of care Obesity affecting in first trimester, unspecified obesity type ([facility]) History of pre-eclampsia Personal history of other genital system and obstetric disorders H/O macrosomia in infant in prior , currently ([facility]) with other poor obstetric history History of bipolar disorder Personal history of affective disorder 21 weeks gestation of ([facility]) state, incidental Encounter for anatomic survey ([facility]) Encounter for anatomic survey Supervision of high risk in third trimester ([facility])- Primary Unspecified high-risk History of pre-eclampsia Personal history of other genital system and obstetric disorders 29 weeks gestation of ([facility]) state, incidental Pre-existing type 2 diabetes mellitus in in third trimester ([facility]) Diabetes mellitus of mother, complicating , childbirth, or the puerperium, unspecified as to episode of care 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 Pre-existing type 2 diabetes mellitus in in first trimester ([facility]) Diabetes mellitus of mother, complicating , childbirth, or the puerperium, unspecified as to episode of care Tobacco smoking complicating in first trimester ([facility]) Tobacco use disorder complicating , childbirth, or the puerperium, antepartum condition or complication History of recurrent UTI (urinary tract infection) Personal history of urinary (tract) infection 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, 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, 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 ([facility]) Herpes simplex type 2 (HSV-2) infection affecting , antepartum, unspecified trimester ([facility]) Supervision of high risk in third trimester ([facility])- Primary Unspecified high-risk Pre-existing type 2 diabetes mellitus in in third trimester ([facility]) Diabetes mellitus of mother, complicating , childbirth, or the puerperium, unspecified as to episode of care Herpes simplex type 2 (HSV-2) infection affecting , antepartum, unspecified trimester ([facility]) H/O macrosomia in in prior , currently ([facility]) with other poor obstetric history History of pre-eclampsia Personal history of other genital system and obstetric disorders 31 weeks gestation of ([facility]) state, incidental Supervision of high risk in third trimester ([facility])- Primary Unspecified high-risk Pre-existing type 2 diabetes mellitus in in third trimester ([facility]) Diabetes mellitus of mother, complicating , childbirth, or the puerperium, unspecified as to episode of care Exposure to parvovirus Contact with or exposure to other viral diseases History of pre-eclampsia Personal history of other genital system and obstetric disorders Pre-existing type 2 diabetes mellitus in in third trimester ([facility])- Primary Diabetes mellitus of mother, complicating , childbirth, or the puerperium, unspecified as to episode of care History of pre-eclampsia Personal history of other genital system and obstetric disorders H/O macrosomia in infant in prior , currently ([facility]) with other poor obstetric history 33 weeks gestation of ([facility]) state, incidental Request for sterilization Herpes simplex type 2 (HSV-2) infection affecting , antepartum, unspecified trimester ([facility]) History of herpes genitalis- Primary Personal history of other infectious and parasitic disease Pre-existing type 2 diabetes mellitus in in third trimester ([facility]) Diabetes mellitus of mother, complicating , childbirth, or the puerperium, unspecified as to episode of care History of pre-eclampsia Personal history of other genital system and obstetric disorders 36 weeks gestation of ([facility]) state, incidental care and examination ([facility])- Primary Routine follow-up Request for sterilization Pre-op exam Preoperative examination, unspecified documented in this encounter [facility]* Diagnosis Pre-existing type 2 diabetes mellitus in in first trimester ([facility])- Primary Diabetes mellitus of mother, complicating , childbirth, or the puerperium, unspecified as to episode of care History of pre-eclampsia Personal history of other genital system and obstetric disorders H/O macrosomia in in prior , currently ([facility]) with other poor obstetric history 17 weeks gestation of ([facility]) state, incidental Encounter for screening for malformation using ultrasound ([facility]) Obesity affecting in first trimester, unspecified obesity type ([facility])- Primary Herpes simplex type 2 (HSV-2) infection affecting , antepartum, unspecified trimester ([facility]) Pre-existing type 2 diabetes mellitus in in first trimester ([facility]) Diabetes mellitus of mother, complicating , childbirth, or the puerperium, unspecified as to episode of care 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 Encounter for supervision of high risk in first trimester, antepartum ([facility]) 21 weeks gestation of ([facility]) state, incidental Pre-existing type 2 diabetes mellitus in in first trimester ([facility])- Primary Diabetes mellitus of mother, complicating , childbirth, or the puerperium, unspecified as to episode of care Obesity affecting in first trimester, unspecified obesity type ([facility]) History of pre-eclampsia Personal history of other genital system and obstetric disorders H/O macrosomia in in prior , currently ([facility]) with other poor obstetric history History of bipolar disorder Personal history of affective disorder 21 weeks gestation of ([facility]) state, incidental Encounter for anatomic survey ([facility]) Encounter for anatomic survey Supervision of high risk in third trimester ([facility])- Primary Unspecified high-risk History of pre-eclampsia Personal history of other genital system and obstetric disorders 29 weeks gestation of ([facility]) state, incidental Pre-existing type 2 diabetes mellitus in in third trimester ([facility]) Diabetes mellitus of mother, complicating , childbirth, or the puerperium, unspecified as to episode of care 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 Pre-existing type 2 diabetes mellitus in in first trimester ([facility]) Diabetes mellitus of mother, complicating , childbirth, or the puerperium, unspecified as to episode of care Tobacco smoking complicating in first trimester ([facility]) Tobacco use disorder complicating , childbirth, or the puerperium, antepartum condition or complication History of recurrent UTI (urinary tract infection) Personal history of urinary (tract) infection 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, 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, 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 residential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 ([facility]) Herpes simplex type 2 (HSV-2) infection affecting , antepartum, unspecified trimester ([facility]) Supervision of high risk in third trimester ([facility])- Primary Unspecified high-risk Pre-existing type 2 diabetes mellitus in in third trimester ([facility]) Diabetes mellitus of mother, complicating , childbirth, or the puerperium, unspecified as to episode of care Herpes simplex type 2 (HSV-2) infection affecting , antepartum, unspecified trimester ([facility]) H/O macrosomia in infant in prior , currently ([facility]) with other poor obstetric history History of pre-eclampsia Personal history of other genital system and obstetric disorders 31 weeks gestation of ([facility]) state, incidental Supervision of high risk in third trimester ([facility])- Primary Unspecified high-risk Pre-existing type 2 diabetes mellitus in in third trimester ([facility]) Diabetes mellitus of mother, complicating , childbirth, or the puerperium, unspecified as to episode of care Exposure to parvovirus Contact with or exposure to other viral diseases History of pre-eclampsia Personal history of other genital system and obstetric disorders Pre-existing type 2 diabetes mellitus in in third trimester ([facility])- Primary Diabetes mellitus of mother, complicating , childbirth, or the puerperium, unspecified as to episode of care History of pre-eclampsia Personal history of other genital system and obstetric disorders H/O macrosomia in in prior , currently ([facility]) with other poor obstetric history 33 weeks gestation of ([facility]) state, incidental Request for sterilization Herpes simplex type 2 (HSV-2) infection affecting , antepartum, unspecified trimester ([facility]) History of herpes genitalis- Primary Personal history of other infectious and parasitic disease Pre-existing type 2 diabetes mellitus in in third trimester ([facility]) Diabetes mellitus of mother, complicating , childbirth, or the puerperium, unspecified as to episode of care History of pre-eclampsia Personal history of other genital system and obstetric disorders 36 weeks gestation of ([facility]) state, incidental 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, 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, 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 ([facility])- Primary documented in this encounter [facility]* Diagnosis Acute chest pain- Primary Unspecified chest pain documented in this encounter [facility] Work Phone: Evaluation note* Diagnosis Pre-existing type 2 diabetes mellitus in in first trimester ([facility])- Primary Diabetes mellitus of mother, complicating , childbirth, or the puerperium, unspecified as to episode of care History of pre-eclampsia Personal history of other genital system and obstetric disorders H/O macrosomia in infant in prior , currently ([facility]) with other poor obstetric history 17 weeks gestation of ([facility]) state, incidental Encounter for screening for malformation using ultrasound ([facility]) Obesity affecting in first trimester, unspecified obesity type ([facility])- Primary Herpes simplex type 2 (HSV-2) infection affecting , antepartum, unspecified trimester ([facility]) Pre-existing type 2 diabetes mellitus in in first trimester ([facility]) Diabetes mellitus of mother, complicating , childbirth, or the puerperium, unspecified as to episode of care 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 Encounter for supervision of high risk in first trimester, antepartum ([facility]) 21 weeks gestation of ([facility]) state, incidental Pre-existing type 2 diabetes mellitus in in first trimester ([facility])- Primary Diabetes mellitus of mother, complicating , childbirth, or the puerperium, unspecified as to episode of care Obesity affecting in first trimester, unspecified obesity type ([facility]) History of pre-eclampsia Personal history of other genital system and obstetric disorders H/O macrosomia in infant in prior , currently ([facility]) with other poor obstetric history History of bipolar disorder Personal history of affective disorder 21 weeks gestation of ([facility]) state, incidental Encounter for anatomic survey ([facility]) Encounter for anatomic survey Supervision of high risk in third trimester ([facility])- Primary Unspecified high-risk History of pre-eclampsia Personal history of other genital system and obstetric disorders 29 weeks gestation of ([facility]) state, incidental Pre-existing type 2 diabetes mellitus in in third trimester ([facility]) Diabetes mellitus of mother, complicating , childbirth, or the puerperium, unspecified as to episode of care 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 Pre-existing type 2 diabetes mellitus in in first trimester ([facility]) Diabetes mellitus of mother, complicating , childbirth, or the puerperium, unspecified as to episode of care Tobacco smoking complicating in first trimester ([facility]) Tobacco use disorder complicating , childbirth, or the puerperium, antepartum condition or complication History of recurrent UTI (urinary tract infection) Personal history of urinary (tract) infection 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, 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, 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 residential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 ([facility]) Herpes simplex type 2 (HSV-2) infection affecting , antepartum, unspecified trimester ([facility]) Supervision of high risk in third trimester ([facility])- Primary Unspecified high-risk Pre-existing type 2 diabetes mellitus in in third trimester ([facility]) Diabetes mellitus of mother, complicating , childbirth, or the puerperium, unspecified as to episode of care Herpes simplex type 2 (HSV-2) infection affecting , antepartum, unspecified trimester ([facility]) H/O macrosomia in infant in prior , currently ([facility]) with other poor obstetric history History of pre-eclampsia Personal history of other genital system and obstetric disorders 31 weeks gestation of ([facility]) state, incidental Supervision of high risk in third trimester ([facility])- Primary Unspecified high-risk Pre-existing type 2 diabetes mellitus in in third trimester ([facility]) Diabetes mellitus of mother, complicating , childbirth, or the puerperium, unspecified as to episode of care Exposure to parvovirus Contact with or exposure to other viral diseases History of pre-eclampsia Personal history of other genital system and obstetric disorders Pre-existing type 2 diabetes mellitus in in third trimester ([facility])- Primary Diabetes mellitus of mother, complicating , childbirth, or the puerperium, unspecified as to episode of care History of pre-eclampsia Personal history of other genital system and obstetric disorders H/O macrosomia in in prior , currently ([facility]) with other poor obstetric history 33 weeks gestation of ([facility]) state, incidental Request for sterilization Herpes simplex type 2 (HSV-2) infection affecting , antepartum, unspecified trimester ([facility]) History of herpes genitalis- Primary Personal history of other infectious and parasitic disease Pre-existing type 2 diabetes mellitus in in third trimester ([facility]) Diabetes mellitus of mother, complicating , childbirth, or the puerperium, unspecified as to episode of care History of pre-eclampsia Personal history of other genital system and obstetric disorders 36 weeks gestation of ([facility]) state, incidental Gastritis with hemorrhage, unspecified chronicity, unspecified gastritis type- Primary Nausea and vomiting, unspecified vomiting type Gastro-esophageal reflux disease without esophagitis Esophageal reflux SHIRA (generalized anxiety disorder) Generalized anxiety disorder [facility] Diagnosis Exercise-induced asthma- Primary Exercise induced bronchospasm Hyperglycemia due to diabetes mellitus (Multi) Anxiety and depression documented in this encounter [facility] Work Phone: Evaluation note* Diagnosis Pre-existing type 2 diabetes mellitus in in first trimester ([facility])- Primary Diabetes mellitus of mother, complicating , childbirth, or the puerperium, unspecified as to episode of care History of pre-eclampsia Personal history of other genital system and obstetric disorders H/O macrosomia in in prior , currently ([facility]) with other poor obstetric history 17 weeks gestation of ([facility]) state, incidental Encounter for screening for malformation using ultrasound ([facility]) Obesity affecting in first trimester, unspecified obesity type ([facility])- Primary Herpes simplex type 2 (HSV-2) infection affecting , antepartum, unspecified trimester ([facility]) Pre-existing type 2 diabetes mellitus in in first trimester ([facility]) Diabetes mellitus of mother, complicating , childbirth, or the puerperium, unspecified as to episode of care 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 Encounter for supervision of high risk in first trimester, antepartum ([facility]) 21 weeks gestation of ([facility]) state, incidental Pre-existing type 2 diabetes mellitus in in first trimester ([facility])- Primary Diabetes mellitus of mother, complicating , childbirth, or the puerperium, unspecified as to episode of care Obesity affecting in first trimester, unspecified obesity type ([facility]) History of pre-eclampsia Personal history of other genital system and obstetric disorders H/O macrosomia in in prior , currently ([facility]) with other poor obstetric history History of bipolar disorder Personal history of affective disorder 21 weeks gestation of ([facility]) state, incidental Encounter for anatomic survey ([facility]) Encounter for anatomic survey Supervision of high risk in third trimester ([facility])- Primary Unspecified high-risk History of pre-eclampsia Personal history of other genital system and obstetric disorders 29 weeks gestation of ([facility]) state, incidental Pre-existing type 2 diabetes mellitus in in third trimester ([facility]) Diabetes mellitus of mother, complicating , childbirth, or the puerperium, unspecified as to episode of care 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 Pre-existing type 2 diabetes mellitus in in first trimester ([facility]) Diabetes mellitus of mother, complicating , childbirth, or the puerperium, unspecified as to episode of care Tobacco smoking complicating in first trimester ([facility]) Tobacco use disorder complicating , childbirth, or the puerperium, antepartum condition or complication History of recurrent UTI (urinary tract infection) Personal history of urinary (tract) infection 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, 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, 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 ([facility]) Herpes simplex type 2 (HSV-2) infection affecting , antepartum, unspecified trimester ([facility]) Supervision of high risk in third trimester ([facility])- Primary Unspecified high-risk Pre-existing type 2 diabetes mellitus in in third trimester ([facility]) Diabetes mellitus of mother, complicating , childbirth, or the puerperium, unspecified as to episode of care Herpes simplex type 2 (HSV-2) infection affecting , antepartum, unspecified trimester ([facility]) H/O macrosomia in in prior , currently ([facility]) with other poor obstetric history History of pre-eclampsia Personal history of other genital system and obstetric disorders 31 weeks gestation of ([facility]) state, incidental Supervision of high risk in third trimester ([facility])- Primary Unspecified high-risk Pre-existing type 2 diabetes mellitus in in third trimester ([facility]) Diabetes mellitus of mother, complicating , childbirth, or the puerperium, unspecified as to episode of care Exposure to parvovirus Contact with or exposure to other viral diseases History of pre-eclampsia Personal history of other genital system and obstetric disorders Pre-existing type 2 diabetes mellitus in in third trimester ([facility])- Primary Diabetes mellitus of mother, complicating , childbirth, or the puerperium, unspecified as to episode of care History of pre-eclampsia Personal history of other genital system and obstetric disorders H/O macrosomia in infant in prior , currently ([facility]) with other poor obstetric history 33 weeks gestation of ([facility]) state, incidental Request for sterilization Herpes simplex type 2 (HSV-2) infection affecting , antepartum, unspecified trimester ([facility]) History of herpes genitalis- Primary Personal history of other infectious and parasitic disease Pre-existing type 2 diabetes mellitus in in third trimester ([facility]) Diabetes mellitus of mother, complicating , childbirth, or the puerperium, unspecified as to episode of care History of pre-eclampsia Personal history of other genital system and obstetric disorders 36 weeks gestation of ([facility]) state, incidental Insulin controlled gestational diabetes mellitus (GDM) in first trimester ([facility]) [facility] Diagnosis Pre-existing type 2 diabetes mellitus in in first trimester ([facility])- Primary Diabetes mellitus of mother, complicating , childbirth, or the puerperium, unspecified as to episode of care History of pre-eclampsia Personal history of other genital system and obstetric disorders H/O macrosomia in in prior , currently ([facility]) with other poor obstetric history 17 weeks gestation of ([facility]) state, incidental Encounter for screening for malformation using ultrasound ([facility]) Obesity affecting in first trimester, unspecified obesity type ([facility])- Primary Herpes simplex type 2 (HSV-2) infection affecting , antepartum, unspecified trimester ([facility]) Pre-existing type 2 diabetes mellitus in in first trimester ([facility]) Diabetes mellitus of mother, complicating , childbirth, or the puerperium, unspecified as to episode of care 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 Encounter for supervision of high risk in first trimester, antepartum ([facility]) 21 weeks gestation of ([facility]) state, incidental Pre-existing type 2 diabetes mellitus in in first trimester ([facility])- Primary Diabetes mellitus of mother, complicating , childbirth, or the puerperium, unspecified as to episode of care Obesity affecting in first trimester, unspecified obesity type ([facility]) History of pre-eclampsia Personal history of other genital system and obstetric disorders H/O macrosomia in in prior , currently ([facility]) with other poor obstetric history History of bipolar disorder Personal history of affective disorder 21 weeks gestation of ([facility]) state, incidental Encounter for anatomic survey ([facility]) Encounter for anatomic survey Supervision of high risk in third trimester ([facility])- Primary Unspecified high-risk History of pre-eclampsia Personal history of other genital system and obstetric disorders 29 weeks gestation of ([facility]) state, incidental Pre-existing type 2 diabetes mellitus in in third trimester ([facility]) Diabetes mellitus of mother, complicating , childbirth, or the puerperium, unspecified as to episode of care 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 Pre-existing type 2 diabetes mellitus in in first trimester ([facility]) Diabetes mellitus of mother, complicating , childbirth, or the puerperium, unspecified as to episode of care Tobacco smoking complicating in first trimester ([facility]) Tobacco use disorder complicating , childbirth, or the puerperium, antepartum condition or complication History of recurrent UTI (urinary tract infection) Personal history of urinary (tract) infection 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, 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, 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 residential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 ([facility]) Herpes simplex type 2 (HSV-2) infection affecting , antepartum, unspecified trimester ([facility]) Supervision of high risk in third trimester ([facility])- Primary Unspecified high-risk Pre-existing type 2 diabetes mellitus in in third trimester ([facility]) Diabetes mellitus of mother, complicating , childbirth, or the puerperium, unspecified as to episode of care Herpes simplex type 2 (HSV-2) infection affecting , antepartum, unspecified trimester ([facility]) H/O macrosomia in infant in prior , currently ([facility]) with other poor obstetric history History of pre-eclampsia Personal history of other genital system and obstetric disorders 31 weeks gestation of ([facility]) state, incidental Supervision of high risk in third trimester ([facility])- Primary Unspecified high-risk Pre-existing type 2 diabetes mellitus in in third trimester ([facility]) Diabetes mellitus of mother, complicating , childbirth, or the puerperium, unspecified as to episode of care Exposure to parvovirus Contact with or exposure to other viral diseases History of pre-eclampsia Personal history of other genital system and obstetric disorders Pre-existing type 2 diabetes mellitus in in third trimester ([facility])- Primary Diabetes mellitus of mother, complicating , childbirth, or the puerperium, unspecified as to episode of care History of pre-eclampsia Personal history of other genital system and obstetric disorders H/O macrosomia in in prior , currently ([facility]) with other poor obstetric history 33 weeks gestation of ([facility]) state, incidental Request for sterilization Herpes simplex type 2 (HSV-2) infection affecting , antepartum, unspecified trimester ([facility]) History of herpes genitalis- Primary Personal history of other infectious and parasitic disease Pre-existing type 2 diabetes mellitus in in third trimester ([facility]) Diabetes mellitus of mother, complicating , childbirth, or the puerperium, unspecified as to episode of care History of pre-eclampsia Personal history of other genital system and obstetric disorders 36 weeks gestation of ([facility]) state, incidental Bacterial sinusitis- Primary Unspecified sinusitis (chronic) Nausea Nausea alone Postnasal drip [facility]* Diagnosis Cough, unspecified type- Primary Acute upper respiratory infection Acute upper respiratory infections of unspecified site [facility] Diagnosis Diabetic gastroparesis associated with type 2 diabetes mellitus (Multi)- Primary Type II or unspecified type diabetes mellitus with neurological manifestations, not stated as uncontrolled Anxiety and depression Gastroesophageal reflux disease, 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 esophagitis present documented in this encounter [facility] Work Phone: History and physical note Author Mariajose Nickerson [facility] Note Date/Time October 16, 2024 8:00p [facility] Medical Records Department [address] [place] [address] OB Triage Physician Note 10/16/24 1838 MR#: [id number] Acct: [id number] Name: MELISSA BYRNE Rep #:[id number] : 1995 29 From: Mariajose Nickerson [place] PCP: Dr. Jamari Byrne MD Status:REG CLI Y Location: GK313-2 HPI - General HPI Narrative MELISSA BYRNE, [...] Nickerson; Dr. Jamari Byrne MD ~ Signed [facility] Work Phone: History and physical note Author Mariajose Nickerson [facility] Note Date/Time December 16, 2024 8:47 pm [facility] Medical Records Department [address] [place] [address] OB Triage Physician Note 12/16/242022 MR#: [id number] Acct: [id number] Name: MELISSA BYRNE Rep #:[id number] : 1995 29 From: Mariajose Nickerson CNM PCP: Dr. Jamari Byrne MD Status:REG CLI Y Location: [id number] HPI - General HPI Narrative MELISSA BYRNE, [...] Nickerson; Dr. Jamari Byrne MD ~ Signed [facility] Work Phone: History of Present illness Narrative* Patient is here today for psych hospital follow up * Patient states that she has been under more stress lately, she apparently was talking to multiple different guys, quit all of her medications for a month, she bough kits on [employer] to tatoo herself. She had been at counseling and she had told her counselor that she was thinking about hurting herself. Sister thought she was more on the manic end of the spectrum. She was just discharged on Friday.she will see her counselor tomorrow and she has an upcoming appt with the psychiatrist on November 07. * She was admitted to [facility] for 5 days. She is currently on Prozac 40mg po daily * She had stopped taking her diabetes meds also. She is back on the metformin 1000mg po daily. She was needing short acting insulin in the hospital. * Pt gve her glucometer to her dad so has not been able to check her blood sugars. [facility] Work Phone: History of Present illness NarrativePatient is a 26-year-old who comes in for test of cure for chlamydia and trichomoniasis. Patient reports that she did take the medication Flagyl and the powdered Zithromax. She has also informed her sexual partners. [facility] Work Phone: Hospital Discharge instructions* Attachments The following attachments cannot be sent through Care Everywhere. * Urinary tract infections in ([place]) * Genital Herpes Discharge Instructions ([place]) [facility] Work Phone: Hospital Discharge instructions* Attachments The following attachments cannot be sent through Care Everywhere. * Flu Discharge Instructions, Adult ([place]) [facility] Work Phone: Hospital Discharge instructions Additional Instructions [facility] Work [facility]: Hospital Discharge instructionsAdditional Instructions Date of Discharge: [facility]24[facility] Work Phone: Hospital Discharge instructionsAdditional Instructions Keep follow up appointment with Dr Gramajo next Friday. Return to the hospital for any worsening symptoms.[facility] Work Phone: Hospital Discharge instructionsAdditional Instructions Please continue all your home medication as directed by your doctor and return to the ER should you have any further concerns or worsening of symptomsWMad[facility] Work Phone: Hospital Discharge instructions* Attachments The following attachments cannot be sent through Care Everywhere. * Chest Pain, Adult ED ([place]) [facility] Work [facility]: Instructions* Attachments The following attachments cannot be sent through Care Everywhere. * URI (Upper Respiratory Infection) ([place]) [facility] for [facility] (narrative)* Consultation (Routine) - Authorized Specialty Diagnoses / Procedures Referred By Contac t Referred To Contact Dermatology Diagnoses Necrobiosis lipoidica Jamari Byrne MD [address] [facility] [address] [place] [address] Radha Patel MD [address] [facility] [place] [address] Referral ID Status Reason Start Date Expiration Date Visits Requested Visits Authorized [id number] Authorized Specialty Services Required 12/25/2023 12/24/2024 1 1 [facility] Work Phone: Reason for referral (narrative)* Outpatient Procedure (Routine) - New Request Specialty Diagnoses / Procedures Referred By Contac t Referred To Contact [facility] Diagnoses Pre-existing type 2 diabetes mellitus in in first trimester [place] [address] [place] [address] [facility] [address] [place] [address] Referral ID Status Reason Start Date Expiration Date Visits Requested Visits Authorized [id number] New Request Auto-Generat ed Referral 06/15/2024 06/15/2025 1 [facility] Diagnostic Procedure Only (Routine) - Authorized Specialty Diagnoses / Procedures Referred By Contac t Referred To Contact [facility] Diagnoses Encounter for anatomic survey Procedures OBSTETRIC ULTRASOUND WHI US PREG UTERUS AFTER 1ST TRIMEST 1/1ST GESTATION William Gramajo MD [address] [place] [address] [address] Referral ID Status Reason Start Date Expiration Date Visits Requested Visits Authorized [id number] Authorized Auto-Generat ed Referral 07/13/2024 07/13/2025 1 1 [facility] for referral (narrative)No reason for referral information availableWMadison Health Work Phone: Reason for visit Narrative* Transition of Care (Routine) - Closed Specialty Diagnoses / Procedures Referred By Shell lucia Referred To Contact Diagnoses complication before (HCC) Procedures MPOWER CONSULT William Gramajo MD [address] [place] [address] Phone: tel: fax: Referral ID Status Reason Start Date Expiration Date V isits Requested Visits Authorized [id number] Closed PCP Requested Referral 09/13/2024 09/13/2025 1 1 [facility] for visit Narrative* Diagnostic Procedure Only (Routine) - Closed Specialty Diagnoses / Procedures Referred By Shell lucia Referred To Contact [facility] Diagnoses Supervision of high risk in third trimester (HCC) Pre-existing type 2 diabetes mellitus in in first trimester (HCC) Procedures BIOPHYSICAL PROFILE US [facility] BIOPHYSICAL PROFILE NON-STRESS TESTING Piper Julian MD [address] [place] [address] Phone: tel: fax: [address] [address] Referral ID Status Reason Start Date Expiration Date V isits Requested Visits Authorized [id number] Closed Auto-Generate d Referral 10/05/2024 10/05/2025 10 1 [facility] Summary Purpose Family History No Family History [...] FoundDocuments on File Type Date Recorded 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 Advance Directives and Livin g Will 02/10/2019 5:53 PM Documents on File Type Date Recorded 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 anation Advance Directives and Livin g Will 03/21/2019 11:25 PM Documents on File Type Date Recorded 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 anation Advance Directives and Livin g Will 03/21/2019 11:25 PM Documents on File Type Date Recorded 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 anation Advance Directives and Livin g Will 07/19/2020 11:25 PM Documents on File Type Date Recorded 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 anation Advance Directives and Livin g Will 07/19/2020 11:25 PM Documents on File Type Date Recorded 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 anation Advance Directives and Livin g Will 03/11/2019 11:43 AM Advance Directive Response Recorded Date/ Time Do you have a Healthcare Power of House Steward/Stewardess? No December 07, 2024 1:05pm Advance Directive Response Recorded Date/ Time Do you have a Healthcare Power of House Steward/Stewardess? No December 07, 2024 1:05pm Do you have a Healthcare Power of House Steward/Stewardess? No January 20, 2025 10:57pm Advance Directive Response Recorded Date/ Time Do you have a Healthcare Power of House Steward/Stewardess? No December 07, 2024 1:05pm Do you have a Healthcare Power of House Steward/Stewardess? No January 20, 2025 10:57pm Do you have a Healthcare Power of House Steward/Stewardess? No January 23, 2025 9:59pm Advance Directive Response Recorded Date/ Time Do you have a Healthcare Power of House Steward/Stewardess? No January 26, 2025 6:52pm Do you have a Healthcare Power of House Steward/Stewardess? No December 07, 2024 1:05pm Do you have a Healthcare Power of House Steward/Stewardess? No January 20, 2025 10:57pm Do you have a Healthcare Power of House Steward/Stewardess? No January 23, 2025 9:59pm Discharge Instructions * Attachments The following attachments cannot be sent through Care Everywhere. * Abdominal Pain, Adult (Iraqi) * Diabetes with High Blood Sugar ([place]) documented in this encounter* Instructions* Camilo June PA-C - 02/10/2019 CONTACT YOUR PSYCHIATRIST'S OFFICE IN [place] TOMORROW MORNING TO INFORM THE STAFF OF YOUR EVALUATION IN THE EMERGENCY DEPARTMENT AND NEED FOR AN APPOINTMENT. * Attachments The following attachments cannot be sent through Care Everywhere. * Mood Disorders: General Info ([place]qi) documented in this encounter* Instructions* Claude Peralta MD - 03/21/2019 If symptoms do not improve consult with your doctor Return to ER as needed documented in this encounter* Attachments The following attachments cannot be sent through Care Everywhere. * URI (Upper Respiratory Infection) ([place]qi) * Hyperglycemia: General Info ([place]qi) documented in this encounter* Attachments The following attachments cannot be sent through Care Everywhere. * Anxiety Disorder ([place]) documented in this encounter* Instructions* Hailey Paiz, WRAPPER HAND - 10/05/2018 Follow-up with your PCP in the next 1 to 2 days for further evaluation of your diabetes. * Attachments The following attachments cannot be sent through Care Everywhere. * Diabetes: Sick Care ([place]qi) * Glycemic Index: General Info ([place]raqi) * Diabetes: Type 2: General Info ([place]) * Diabetes: Heart Disease: General Info ([place]qi) * Hyperglycemia: General Info ([place]raqi) documented in this encounter Assessments Diagnosis Lower [...] PSG SEIZURE MONTAGE Maty Chavez MD [address] [place] [address] Sleep Medicine [address] [place] [address] Status Reason Specialty Diagnoses / Procedures Referred By Contact Referred To Contact Pending Review Specialty Services Required/Patien t's Best Interest Neurology Diagnoses Seizure (HCC) Procedures EEG (Standard) Srini Medina MD [address] [facility] [address] [address] Eeg Neurodiag [address] [place] [address] Status Reason Specialty Diagnoses / Procedures Referred By Contact Referred To Contact Authorized Sleep Medicine Diagnoses Seizure (HCC) Srini Medina MD [address] [place] [address] Maty Chavez MD [address] [place] [address] Specialty Diagnoses / Procedures Referred By Contac t Referred To Contact Diagnoses Insulin controlled gestational diabetes mellitus (GDM) in first trimester Procedures ENDOCRINOLOGY DIETITIAN VISIT (MNT) MEDICAL NUTRITION ASSMT&IVNTJ INDIV EACH 15 ID MEDICAL NUTRITION ASSMT&IVNTJ INDIV EACH 15 ID MEDICAL NUTRITION ASSMT&IVNTJ INDIV EACH 15 ID MEDICAL NUTRITION ASSMT&IVNTJ INDIV EACH 15 ID Kelsy Guillermo, DO [address] [place] [address] Referral ID Status Reason Start Date Expiration Date Visits Requested Visits Authorized [id number] Authorized PCP Requested Referral 4 05/03/2025 1 1 Specialty Diagnoses / Procedures Referred By Contac t Referred To Contact Diagnoses Encounter for supervision of high risk in first trimester, antepartum H/O macrosomia in infant in prior , currently Pre-existing type 2 diabetes mellitus in in first trimester History of pre-eclampsia Procedures CONSULT TO MATERNAL MEDI OFFICE/OUTPATIENT NEW HIGH MDM 60 MINUTES Zayda Parker APRN.WRAPPER HAND [address] [place] [address] Referral ID Status Reason Start Date Expiration Date Visits Requested Visits Authorized [id number] Authorized PCP Requested Referral Auto-Generate d Referral 4 05/07/2025 1 1 Specialty Diagnoses / Procedures Referred By Contac t Referred To Contact [facility] Diagnoses with uncertain dates in first trimester Procedures NUCHAL TRANSLUCENCY WHI US NUCHAL TRANSLUCENCY 1ST GESTATION Zayda Parker APRN.CNP [address] [place] [address] [facility] [address] [place] [address] Referral ID Status Reason Start Date Expiration Date Visits Requested Visits Authorized [id number] Authorized Auto-Generat ed Referral 4 05/07/2025 1 1 Specialty Diagnoses / Procedures Referred By Shell t Referred To Contact [facility] Diagnoses with uncertain dates in first trimester Procedures OBSTETRIC ULTRASOUND WHI US PREG UTERUS AFTER 1ST TRIMEST GESTATION Shwetha ParkerilySARAHY.WRAPPER HAND [address] [address] [facility] [address] [place] [address] Referral ID Status Reason Start Date Expiration Date Visits Requested Visits Authorized [id number] New Request Auto-Generat ed Referral 4 05/07/2025 [...] or abnormal muscle tone. Coordination: Coordination normal. Uzaqvp-Bviv-Qodaxs Test normal. Gait: Gait is intact. Gait [...] We will check some laboratory testing include ILSA, RPR, ceruloplasmin, and sed rate. No driving or operating motor vehicle. Avoid caffeine, alcohol, sleep deprivation, or stress. Maintain regular sleep and dietary habits. Monitor for any excessive daytime sleepiness. Monitor for any trigger factors or precipitating factors. I instructed her to write a diary of her spells. I will hold anticonvulsant agent at this time. Impression/diagnosis, plans were explained and discussed. Odell seizure precautions. Avoid triggers and precipitating factors. [...] Portions of this chart was created using [employer] voice recognition software. Occasional wrong-word or sound-like [...] MORE BLOOD WORK DONE FOR HSV. LMP . Chief Complaint and Reason for Visit Chief [...] 16, 2024 7:10pm Chief Complaint Admit Date RULE OUT LABOR October 16, 2024 5:10p m R/O LABOR November 15, 2024 3:32p m VAG December 07, 2024 11:00 am POST PRE E December 16, 2024 7:10 pm nv January 20, 2025 10 :23pm n/v, htn January 23, 2025 9: 06pm Reason for Visit Admit Date Asthma October 16, 2024 5:10p m Bipolar [...] 16, 2024 7:10pm Chief Complaint Admit Date RULE OUT LABOR October 16, 2024 5:10p m R/O LABOR November 15, 2024 3:32p m VAG December 07, 2024 11:00 am POST PRE E December 16, 2024 7:10 pm nv January 20, 2025 10 :23pm n/v, htn January 23, 2025 9: 06pm n/v, chest pain, SOB January 26, 2025 6 :44pm Additional Source Comments INFORMATION SOURCE (unrecogn ized section and content) DATE CREATED AUTHOR 12/02/2017 [facility] DATE CREATED AUTHOR AUTHOR'S ORGANIZ ATION 12/17/2017 [facility] DATE CREATED AUTHOR AUTHOR'S ORGANIZ ATION 01/24/2018 [facility] DATE CREATED AUTHOR AUTHOR'S ORGANIZ ATION 05/18/2018 [facility] DATE CREATED AUTHOR AUTHOR'S ORGANIZ ATION 07/29/2018 [facility] DATE CREATED AUTHOR AUTHOR'S ORGANIZ ATION 01/02/2019 [facility] DATE CREATED AUTHOR AUTHOR'S ORGANIZ ATION 03/18/2020 [facility] DATE CREATED AUTHOR AUTHOR'S ORGANIZ ATION 07/05/2020 [facility] DATE CREATED AUTHOR AUTHOR'S ORGANIZ ATION 07/20/2020 [facility] DATE CREATED AUTHOR AUTHOR'S ORGANIZ ATION 08/05/2021 [facility] DATE CREATED AUTHOR AUTHOR'S ORGANIZ ATION 10/28/2021 [facility] DATE CREATED AUTHOR AUTHOR'S ORGANIZ ATION 05/31/2022 [facility] DATE CREATED AUTHOR AUTHOR'S ORGANIZ ATION 08/18/2022 [facility] DATE CREATED AUTHOR AUTHOR'S ORGANIZ ATION 12/04/2022 [facility] DATE CREATED AUTHOR AUTHOR'S ORGANIZ ATION 04/19/2024 [facility] DATE CREATED AUTHOR AUTHOR'S ORGANIZ ATION 04/26/2024 [facility] DATE CREATED AUTHOR AUTHOR'S ORGANIZ ATION 10/15/2024 [facility] DATE CREATED AUTHOR AUTHOR'S ORGANIZ ATION 11/07/2024 [facility] DATE CREATED AUTHOR AUTHOR'S ORGANIZ ATION 01/30/2025 [facility] DATE CREATED AUTHOR AUTHOR'S ORGANIZ ATION 02/22/2025 [facility] DATE CREATED AUTHOR AUTHOR'S ORGANIZ ATION 03/13/2025 [facility] DATE CREATED AUTHOR AUTHOR'S ORGANIZ ATION 03/14/2025 [facility] DATE CREATED AUTHOR AUTHOR'S ORGANIZ ATION 03/18/2025 [facility] DATE CREATED AUTHOR AUTHOR'S ORGANIZ ATION 04/09/2025 [facility] Reason for Visit (unrecogniz ed section and content) Reason Comments Abdominal Pain lower abs pain x 7 d ays, nausea no vomitting. Reason Comments Suicidal Reason Comments Nausea Abdominal Pain lower abdomen Status Reason Specialty Diagnoses / Procedures Referred By Contact Referred To Contact Closed Sleep Medicine Diagnoses MG (obstructive sleep apnea) MG Procedures PSG SEIZURE MONTAGE Maty Chavez MD [address] [place] [address] Sleep Medicine [address] [place] [address] Status Reason Specialty Diagnoses / Procedures Referred By Contact Referred To Contact Pending Review Specialty Services Required/Patien t's Best Interest Neurology Diagnoses Seizure (HCC) Procedures EEG (Standard) Srini Medina MD 335 [facility] [address] [address] Eeg Neurodiag [address] [place] [address] Reason Comments Shortness of Breath has been [...] Diagnoses Seizure (HCC) Rich Ng, DO [address] [place] [address] Srini Medina MD [address] [facility] [address] [address] Reason Comments Mental Health Problem Reason Comments Shortness of Breath Nausea Palpitations Reason Comments Vaginitis Itching, some burnin g, white discharge sometimes yellow, denies urine frequency or urgency, would like to do a STI screening also Reason Comments 3 month Specialty Diagnoses / Procedures Referred By Contlaura t Referred To Contact Primary Care Procedures Follow Up In Primary Care Jamari Byrne MD [address] [facility] [address] [place] [address] Referral ID Status Reason Start Date Expiration Date V isits Requested Visits Authorized [id number] Authorized 09/09/2022 03/08/2023 1 1 Reason Comments [...] first trimester Procedures CONSULT TO ENDOCRINOLOGY OFFICE/OUTPATIENT [facility] 60 MINUTES William Gramajo MD [address] [place] [address] Referral ID Status Reason Start Date Expiration Date V isits Requested Visits Authorized [id number] Closed PCP Requested Referral 04/20/2024 04/20/2025 1 [...] Referred By Shell lucia Referred To Contact [facility] Diagnoses with uncertain dates in first trimester Procedures NUCHAL TRANSLUCENCY WHI US NUCHAL TRANSLUCENCY 1ST GESTATION Zayda Parker APRN.WRAPPER HAND [address] [place] [address] [facility] [address] [place] [address] Referral ID Status Reason Start Date Expiration Date V isits Requested Visits Authorized [id number] Closed Auto-Generat ed Referral Patient Cleared - Admin/Chairm an/Director advise to proceed or did not respond 06/15/2024 06/08/2025 1 1 Reason Comments Nuchal/Consult to [facility] Specialty Diagnoses / Procedures Referred By Shell lucia Referred To Contact MATERNAL MEDICINE Diagnoses Encounter for supervision of high risk in first trimester, antepartum H/O macrosomia in in prior , currently Pre-existing type 2 diabetes mellitus in in first trimester History of pre-eclampsia Procedures CONSULT TO MATERNAL MEDI OFFICE/OUTPATIENT NEW HIGH MDM 60 MINUTES OFFICE/OUTPATIENT ESTABLISHED HIGH MDM 40 MIN Zayda Parker APRN.WRAPPER HAND [address] [place] [address] Final Inspector And Tester [facility] [employer] [address] [place] [address] Referral ID Status Reason Start Date Expiration Date Visits Requested Visits Authorized [id number] Authorized PCP Requested Referral Auto-Generate d Referral 06/09/2024 06/08/2025 99 99 Reason Comments Medical Nutrition Therapy Reason Comments OB Cramping Reason Comments Cough C/o cough and vomiti ng since yesterday. Also c/o fever. States she is approx 15 wks preg. Reason Comments OB Influenza Specialty Diagnoses / Procedures Referred By Shell lucia Referred To Contact [facility] Diagnoses with uncertain dates in first trimester Encounter for supervision of normal , unspecified, unspecified trimester Procedures OBSTETRIC ULTRASOUND WHI US PREG UTERUS AFTER 1ST TRIMEST GESTATION Zayda Parker APRN.WRAPPER HAND [address] [place] [address] [facility] [address] [place] [address] Referral ID Status Reason Start Date Expiration Date Visits Requested Visits Authorized [id number] Authorized Auto-Generat ed Referral 06/29/2024 06/08/2025 20 20 Reason Onset Date Comments Care 07/13/2024 Reason Comments Refill Request Reason Comments Vaginal Problem Reason Comments Follow Up Gestational Diabetes Specialty Diagnoses / Procedures Referred By Contac t Referred To Contact [facility] Diagnoses Encounter for anatomic survey Procedures OBSTETRIC ULTRASOUND WHI US PREG UTERUS AFTER 1ST TRIMEST GESTATION William Gramajo MD [address] [place] [address] Phone: tel: fax: [place] [phone] [place] [address] Referral ID Status Reason Start Date Expiration Date V isits Requested Visits Authorized [id number] Closed Auto-Generate d Referral 07/13/2024 07/13/2025 1 1 Reason Onset Date Comments Care 08/10/2024 Reason Comments returning your call Reason Comments Patient Request Reason Comments Patient Question Specialty Diagnoses / Procedures Referred By Contac t Referred To Contact [facility] Diagnoses Obesity affecting in first trimester, unspecified obesity type (HCC) Pre-existing type 2 diabetes mellitus in in first trimester (HCC) Procedures OBSTETRIC ULTRASOUND WHI US PREG UTERUS AFTER 1ST TRIMEST GESTATION William Gramajo MD [address] [place] [address] Phone: tel: fax: [facility] [address] [place] [address] Referral ID Status Reason Start Date Expiration Date V isits Requested Visits Authorized [id number] Closed Auto-Generate d Referral 08/10/2024 08/10/2025 4 [...] Referred By Shell t Referred To Contact [facility] Diagnoses History of pre-eclampsia 29 weeks gestation of ([facility]) Pre-existing type 2 diabetes mellitus in in third trimester ([facility]) Supervision of high risk in third trimester ([facility]) Procedures ECG COMPLETE ECG ROUTINE ECG W/LEAST 12 LDS W/I&R Piper Julian MD [address] [place] [address] Phone: tel: fax: [facility] [address] [place] [address] Referral ID Status Reason Start Date Expiration Date V isits Requested Visits Authorized [id number] Closed Auto-Generate d Referral 10/04/2024 10/04/2025 1 1 Reason Onset Date Comments Care 11/02/2024 Reason Comments Breast Pump Reason Onset Date Comments Care 11/05/2024 Specialty Diagnoses / Procedures Referred By Shell t Referred To Contact [facility] Diagnoses Supervision of high risk in third trimester ([facility]) Pre-existing type 2 diabetes mellitus in in first trimester ([facility]) Procedures BIOPHYSICAL PROFILE US [facility] BIOPHYSICAL PROFILE NON-STRESS TESTING Piper Julian MD [address] [place] [address] Phone: tel: fax:[phone] [facility] [address] [place] [address] Referral ID Status Reason Start Date Expiration Date V isits Requested Visits Authorized [id number] Closed Auto-Generate d Referral 10/05/2024 10/05/2025 10 1 Reason Onset Date Comments Care 11/11/2024 Reason Onset Date Comments Care 11/15/2024 Reason Onset Date Comments Care 11/18/2024 Reason Onset Date Comments Care 11/25/2024 Reason Onset Date Comments Care 12/02/2024 Reason Onset Date Comments Care 12/06/2024 Reason Comments Ob Delivery Note Reason Comments Care Reason Comments Follow Up Insulin Dependent Diabetes Mellitus Reason Comments Chest Pain CP that started whil e driving around 1100. Intermittently improves but comes back. Reason Comments Nausea & Vomiting X 1 week, emesis 3-4 times a day,Feels like BP and HR are increased Reason Comments Preparations For Surgery Reason Comments Diabetes Lab Results Componen t Value Date HGBA1C 7.1 (A) 01/20/2025 Exercise-induced asthma ER Follow-up 01/24/25 [facility]; chest pain; EKG done01/29/25 [facility]; acute sinusitis, URI Reason Comments insulin concern Reason Comments Nausea & Vomiting Nausea and vomiting and chest congestion x 1-2 weeks Reason Comments Cough Reason Comments Annual Exam Still having complai nts of congestion and loss of appetite. Has been having n/v x 2 weeks. Monique Cartwright LSW - 02/10/2019 7:23 PM Monique Monroe LSW - 03/11/2019 1:52 PM EDT Consult Notes (unrecognized section and content) ED Rider Ticket Worker Behavioral Health Initial Assessment Date: 02/10/2019 Time: 7:24 PM Patient Name: Melissa Kaur Date of : 1995 Sex: Female Admit Date/Time: 02/10/2019 5:04 PM GENERAL INFORMATION General Information Farm Specialist Needs: Not needed Information Provided By: Patient, Patient Support System: Current Living Arrangements: Lives with and 2 elderly friends Type of Residence: Private residence Name and Contact of Collateral Provider: Jorge () [phone] LEGAL STATUS Voluntary DIAGNOSIS/ACTIVE PROBLEM LIST Hospital [...] Previous Psychiatric Medications: Anti-depressants Previous Psychiatric Hospitalizations: [facility] December 2018 Current Psychiatric Medications: Prozac ALCOHOL/DRUG [...] Conflict Resolution (Coping Skills): Yes Cultural and Jehovah'S Witness Beliefs: Yes Access to Weapons: No TREATMENT [...] Jones, updated. documented in this encounter ED Rider Ticket Worker Behavioral Health Initial Assessment Date: 03/11/2019 Time: 3:21 PM Patient Name: Melissa Kaur Date of : 1995 Sex: Female Admit Date/Time: 03/11/2019 10:50 AM GENERAL INFORMATION General Information Farm Specialist Needs: Not needed Information Provided By: Patient Patient Support System: Current Living Arrangements: Lives with and elderly friends Type of Residence: Private residence Name and Contact of Collateral Provider: Mahendra (Spouse) [phone] LEGAL STATUS Voluntary DIAGNOSIS/ACTIVE PROBLEM LIST Hospital [...] she will be attending. Pt follows at [facility] counseling every 2 weeks. Pt sees a counselor and psychiatrist. Pt is prescribed Risperdal and takes it as prescribed. Pt reports she has been hospitalized at [facility] int he past. 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 Pt is currently unemployed. PAST PSYCHIATRIC HISTORY Past Psychiatric History Previous Psychiatric Diagnosis: Depression, Pt states schizophrenia Previous Psychiatric Medications: Anti-depressants Previous Psychiatric Hospitalizations: [facility] Current Psychiatric Medications: Risperdal ALCOHOL/DRUG ABUSE HISTORY [...] Conflict Resolution (Coping Skills): Yes Cultural and Jehovah'S Witness Beliefs: Yes Access to Weapons: No TREATMENT RECOMMENDATIONS AND CLINICAL SUMMARY Treatment Recommendations and Clinical Summary Current Recommendations: Referral for outpatient counseling RATIONALE/PLAN FOR TREATMENT: Spoke to DAYAMI Camacho, about Pt not wanting to stay at the hospital. Gisselle states she does not feel she can completed an involuntary admission on the Pt and will discharge her. Did call [facility] with Pt's permission to see if they could get her an earlier appointment which they could not. Pt again states she will not stay at the hospital and wants to return home. documented in this encounter Clinton Meza - 02/10/2019 6:36 PM EDTBClinton smith - 02/10/2019 6:29 PM EDTBClinton smith - 02/10/2019 6:27 PM EDTBClinton smith - 02/10/2019 5:45 PM EDTBClinton smith - 02/10/2019 5:43 PM EDT ED Notes (unrecognized secti on and content) Rider Ticket Worker in room thirty one Patient in bathroom at this time Bathroom at this time Nurse doing blood draw at this time Nurse in room with patient Patient now in room with PA Camilo Patient changed into agown. PT REPORTS, THOUGHTS TO HARM SELF. SENT TO [employer] LAST December FOR SUICIDAL IDEATIONS. TODAY COULDN'T GET A HOLD OF COUNSELOR, DIDN'T KNOW WHAT ELSE TO DO, CAME TO ED FOR HELP. PSA taking Vitals at this time. documented in this encounter ED PROVIDER NOTE [facility] NAME: Melissa Kaur AGE: 24 y.o. : 1995 VISIT DATE: 03/21/2019 CSN: [id number] PCP: Verona Hilliard MD Chief Complaint Patient [...] Yellow Clarity, Urine Hazy (A) Clear Specific [place] 1.020 1.005 - 1.025 pH, Urine 6.0 [...] not been specified. Claude Peralta MD 03/21/19 3309 Pt states abdominal pain, nausea for 3 days with vomiting starting today. documented in this encounter PT AWAKE BUT RESTFUL ON CART. RESPS UNLABORED. NO VISIBLE DISTRESS OBSERVED AND NO C/O VOICED. DISCHARGE COMPLETED. PT RESTFUL WITHOUT C/O OR NEEDS VOICED. WAITING ON COMPLETION OF TEST RESULTS AND RE-EVAL / DISPOSITION. ED PROVIDER NOTE [facility] NAME: Melissa Kaur AGE: 23 y.o. : 1995 VISIT DATE: 10/06/2018 CSN: [id number] PCP: Verona Hilliard MD Chief Complaint Patient presents with Shortness of Breath has been feeling SOB all day Hyperglycemia pt report s high BS, states it was 201 at home HPI patient is a 23-year-old with history of type 2 diabetes [id number] anxiety depression reactive airway disease who presents [...] Yellow Clarity, Urine Hazy (A) Clear Specific [place] 1.014 1.005 - 1.025 pH, Urine 5.0 [...] Medicine Why: If symptoms worsen [address] [facility] [id number] Contact information for after-discharge care Follow-up information [...] ATTEMPT URINE SPECIMEN. PT REPORT RECEIVED FROM BETSY AMIN AND BETSY DURAN. Pt ambulated to 12. Steady gait. Complaint of high BS and SOB. A&Ox3. No distress. Breathing even and unlabored. Lungs clear bilat. Assessment complete. call light in reach. Friends [facility]. 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 CSN: [id number] PCP: Verona Hilliard MD History: Chief Complaint: [...] they are currently manageable. Patient goes to [facility] for counseling and psychiatry care. Patient [...] and atraumatic. Nose: Nose normal. Mouth/Throat: Lips: [place]. Mouth: Mucous membranes are moist. Pharynx: Oropharynx [...] Result Value Clarity, Urine Hazy (*) Specific [place] 1.029 (*) Ketones, Urine Trace (*) Urobilinogen, [...] baseline and feels safe to go home. 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 patient is to keep her follow-up appointment [...] Gisselle Monterroso CNP ED Advanced Practice Provider [facility] Emergency Department (Please note that portions of this note have been completed with a voice recognition software. Efforts were made to correct any errors, but occasionally words are mis-transcribed.) Gisselle Monterroso CNP 03/11/19 1301 Nurse now doing a blood draw OR SCRUB TECH was in room with patient Rider Ticket Worker in room with patient DAYAMI Camacho [facility] Pt in blue gown , sitter [...] removed from the room: IV pole; Nurse warrant server Misc. items removed from the room: [...] CRITICAL LAB: GLUCOSE = 460; READBACK COMPLETED; OR SCRUB TECH, HAILEY MADE AWARE. ABG's completed. Patient to ED due to Heart racing And SOB. Dizziness and lightheaded noted Ambulated to restroom and backwith stand by assist. States is lightheaded Student [facility] assisting with IV. Nicholas. Beginning assessments [facility] ED PAUL Note: NAME: Melissa Kaur 23 y.o. CSN: [id number] PCP: Verona Hilliard MD History: Chief Complaint: [...] F (36.9 C) Oral 96 98 % 10/04/181930 5' 3 80.7 kg (178 lb) Physical [...] Procedure Abnormality Status --------- ------ CBC Auto Differential[[id number]] Final result Please view results for these tests on the individual orders. POC GLUCOSE POC GLUCOSE POC ARTERIAL BLOOD GAS PANEL-PULM - RALS CBC WITH AUTO DIFFERENTIAL XR Chest AP/PA and LAT Non-public Result No acute cardiopulmonary disease. Workstation ID: [id number] MDM: ED Course as of Oct 05 [address] Oct 04, [id number] Glucose: (!!) 442 [SS] 2058 Plan to initiate fluid resuscitation and evaluate [...] home. ELIF Wilhelm ED Advanced Practice Provider [facility] Emergency Department (Please note that portions of [...] 14 days? No Have you been/visited a care home in the past two weeks? No Have [...] of the above questions, consult the ordering imaging system administrator to determine if patient needs COVID test [...] section and content) Associated Order(s): EEG (STANDARD) [facility] EEG Report Reason for EEG: Spells [...] Care Teams (unrecognized sec tion and content) Aegis Console Operator Track Relationship Specialty Start Date End Date Marshall Brown MD [address] [place] [phone] PCP - General 05/15/22 Aegis Console Operator Track Relationship Specialty Start Date End Date Jamari Byrne MD [facility] [address] [facility], [address] [place] [address] PCP - General 11/12/21 Aegis Console Operator Track Relationship Specialty Start Date End Date Jamari Byrne MD [address] [facility], [address] [place] [address] PCP - General 11/12/21 Jamari Byrne MD [address] [facility], [address] [place] [address] PCP - [facility] PCP 10/07/22 Aegis Console Operator Track Relationship Specialty Start Date End Date Jamari Byrne MD [address] [facility], [address] [place] [phone] PCP - General 11/12/21 Jamari Byrne MD [address] [facility], [address] [place] [phone] PCP - [facility] PCP 10/07/22 Aegis Console Operator Track Relationship Specialty Start Date End Date Jamari Byrne MD [address] [facility], [address] [place] [phone] PCP - General 11/12/21 Jamari Byrne MD [address] [facility], [address] [place] [address] PCP - [facility] PCP 10/07/22 Aegis Console Operator Track Relationship Specialty Start Date End Date Jamari Byrne MD [address] [place] [phone] PCP - General Family Medicine 08/19/23 Aegis Console Operator Track Relationship Specialty Start Date End Date Jamari Byrne MD [address] [facility], [address] [place] [address] PCP - General 11/12/21 Jamari Byrne MD [address] [facility], [address] [place] [address] PCP - [facility] PCP 10/07/22 Aegis Console Operator Track Relationship Specialty Start Date End Date Jamari Byrne MD [address] [place] [phone] PCP - General Family Medicine 08/19/23 Aegis Console Operator Track Relationship Specialty Start Date End Date Jamari Byrne MD [address] [facility], [address] [place] [phone] PCP - General 11/12/21 Jamari Byrne MD [address] [facility], [address] [place] [phone] PCP - [facility] PCP 10/07/22 Aegis Console Operator Track Relationship Specialty Start Date End Date Jamari Byrne MD [address] [place] [phone] PCP - General Family Medicine 08/19/23 Aegis Console Operator Track Relationship Specialty Start Date End Date Jamari Byrne MD [address] [place] [phone] PCP - General Family Medicine 08/19/23 Aegis Console Operator Track Relationship Specialty Start Date End Date Jamari Byrne MD [address] [facility], [address] [place] [address] PCP - General 11/12/21 Jamari Byrne MD [address] [facility], [address] [place] [address] PCP - [facility] PCP 10/07/22 Aegis Console Operator Track Relationship Specialty Start Date End Date Jamari Byrne MD [address] [place] [address] PCP - General Family Medicine 08/19/23 Aegis Console Operator Track Relationship Specialty Start Date End Date Jamari Byrne MD [address] [place] [address] PCP - General Family Medicine 08/19/23 Aegis Console Operator Track Relationship Specialty Start Date End Date Jamari Byrne MD [address] [facility], [address] [place] [address] PCP - General 11/12/21 Jamari Byrne MD [address] [facility], [address] [place] [address] PCP - [facility] PCP 10/07/22 Aegis Console Operator Track Relationship Specialty Start Date End Date Jamari Byrne MD [address] [place] [address] PCP - General Family Medicine 08/19/23 Aegis Console Operator Track Relationship Specialty Start Date End Date Jamari Byrne MD [address] [place] [phone] PCP - General Family Medicine 08/19/23 Aegis Console Operator Track Relationship Specialty Start Date End Date Jamari Byrne MD [address] [place] [phone] PCP - General Family Medicine 08/19/23 Aegis Console Operator Track Relationship Specialty Start Date End Date Jamari Byrne MD [address] [place] [phone] PCP - General Family Medicine 08/19/23 Aegis Console Operator Track Relationship Specialty Start Date End Date Jamari Byrne MD [address] [place] [address] PCP - General Family Medicine 08/19/23 Aegis Console Operator Track Relationship Specialty Start Date End Date Jamari Byrne MD [address] [place] [phone] PCP - General Family Medicine 08/19/23 Aegis Console Operator Track Relationship Specialty Start Date End Date Jamari Byrne MD [address] [facility], [place] [phone] PCP - General 11/12/21 Jamari Byrne MD [address] [facility], [facility] [address] [place], [facility] 10/07/22 Aegis Console Operator Track Relationship Specialty Start Date End Date Jamari Byrne MD [address] [facility], [address] [place] [address] PCP - General 11/12/21 Jamari Byrne MD [address] [facility], [address] [place] [address] PCP - [facility] PCP 10/07/22 Aegis Console Operator Track Relationship Specialty Start Date End Date Jamari Byrne MD [address] [facility], [address] [place], [facility] PCP - General 11/12/21 Jamari Byrne MD [address] [facility], [facility] [address] [place], [facility] PCP - [facility] PCP 10/07/22 Aegis Console Operator Track Relationship Specialty Start Date End Date Jamari Byrne MD [address] [place] [phone] PCP - General Family Medicine 08/19/23 Aegis Console Operator Track Relationship Specialty Start Date End Date Jamari Byrne MD [address] [place] [phone] PCP - General Family Medicine 08/19/23 Aegis Console Operator Track Relationship Specialty Start Date End Date Jamari Byrne MD [address] [place] [address] PCP - General Family Medicine 08/19/23 Aegis Console Operator Track Relationship Specialty Start Date End Date Jamari Byrne MD [address] [place] [address] PCP - General Family Medicine 08/19/23 Aegis Console Operator Track Relationship Specialty Start Date End Date Jamari Byrne MD [address] [place] [address] PCP - General Family Medicine 08/19/23 Aegis Console Operator Track Relationship Specialty Start Date End Date Jamari Byrne MD [address] [facility], [facility] [address] [place] [address] PCP - General 11/12/21 Jamari Byrne MD [address] [facility], [facility] [address] [place] [address] PCP - [facility] PCP 10/07/22 Aegis Console Operator Track Relationship Specialty Start Date End Date Jamari Byrne MD [address] [place] [address] PCP - General Family Medicine 08/19/23 Aegis Console Operator Track Relationship Specialty Start Date End Date Jamari Byrne MD [address] [place] [address] PCP - General Family Medicine 08/19/23 Aegis Console Operator Track Relationship Specialty Start Date End Date Jamari Byrne MD [address] [place] [address] PCP - General Family Medicine 08/19/23 Aegis Console Operator Track Relationship Specialty Start Date End Date Jamari Byrne MD [address] [place] [address] PCP - General Family Medicine 08/19/23 Aegis Console Operator Track Relationship Specialty Start Date End Date Jamari Byrne MD [address] [place] [address] PCP - General Family Medicine 08/19/23 Aegis Console Operator Track Relationship Specialty Start Date End Date Jamari Byrne MD [address] [place] [address] PCP - General Family Medicine 08/19/23 Aegis Console Operator Track Relationship Specialty Start Date End Date Jamari Byrne MD [address] [place] [address] PCP - General Family Medicine 08/19/23 Aegis Console Operator Track Relationship Specialty Start Date End Date Jamari Byrne MD [address] [place] [address] PCP - General Family Medicine 08/19/23 Aegis Console Operator Track Relationship Specialty Start Date End Date Jamari Byrne MD [address] [place] [address] PCP - General Family Medicine 08/19/23 Aegis Console Operator Track Relationship Specialty Start Date End Date Jamari Byrne MD [address] [place] [address] PCP - General Family Medicine 08/19/23 Aegis Console Operator Track Relationship Specialty Start Date End Date Jamari Byrne MD [address] [place] [address] PCP - General Family Medicine 08/19/23 Aegis Console Operator Track Relationship Specialty Start Date End Date Jamari Byrne MD [address] [place] [phone] PCP - General Family Medicine 08/19/23 Aegis Console Operator Track Relationship Specialty Start Date End Date Jamari Byrne MD [address] [place] [phone] PCP - General Family Medicine 08/19/23 Aegis Console Operator Track Relationship Specialty Start Date End Date Jamari Byrne MD [address] [facility], [facility] [address] [place], [place] [address] PCP - General 11/12/21 Jamari Byrne MD [address] [facility], [facility] [address] [place], [place] [address] PCP - [facility] P[facility] 10/07/22 Aegis Console Operator Track Relationship Specialty Start Date End Date Jamari Byrne MD [address] [place] [phone] PCP - General Family Medicine 08/19/23 Aegis Console Operator Track Relationship Specialty Start Date End Date Jamari Byrne MD [address] [place] [phone] PCP - General Family Medicine 08/19/23 Aegis Console Operator Track Relationship Specialty Start Date End Date Jamari Byrne MD [address] [place] [phone] PCP - General Family Medicine 08/19/23 Aegis Console Operator Track Relationship Specialty Start Date End Date Jamari Byrne MD [address] [place] [address] PCP - General Family Medicine 08/19/23 Team [...] September 24, 2024 End: September 24, 2024 Aegis Console Operator Track Relationship Specialty Start Date End Date Jamari Byrne MD [address] [place] [address] PCP - General Family Medicine 08/19/23 Aegis Console Operator Track Relationship Specialty Start Date End Date Jamari Byrne MD [address] [place] [address] PCP - General Family Medicine 08/19/23 Aegis Console Operator Track Relationship Specialty Start Date End Date Jamari Byrne MD [address] [place] [address] PCP - General Family Medicine 08/19/23 Aegis Console Operator Track Relationship Specialty Start Date End Date Jamari Byrne MD [address] [place] [address] PCP - General Family Medicine 08/19/23 Aegis Console Operator Track Relationship Specialty Start Date End Date Jamari Byrne MD [address] [place] [phone] PCP - General Family Medicine 08/19/23 Aegis Console Operator Track Relationship Specialty Start Date End Date Jamari Byrne MD [address] [place] [phone] PCP - General Family Medicine 08/19/23 Team Status: Inactive Member Role Status Dates Dr. Jamari Byrne MD Primary Care Provider Active Start: October 16, 2024 End: October 16, 2024 Mariajose Nickerson CNM Attending Provider Active Start: October 16, 2024 End: October 16, 2024 Aegis Console Operator Track Relationship Specialty Start Date End Date Jamari Byrne MD [address] [place] [phone] PCP - General Family Medicine 08/19/23 Aegis Console Operator Track Relationship Specialty Start Date End Date Jamari Byrne MD [address] [place] [phone] PCP - General Family Medicine 08/19/23 Aegis Console Operator Track Relationship Specialty Start Date End Date Jamari Byrne MD [address] [place] [phone] PCP - General Family Medicine 08/19/23 Aegis Console Operator Track Relationship Specialty Start Date End Date Jamari Byrne MD [address] [place] [phone] PCP - General Family Medicine 08/19/23 Aegis Console Operator Track Relationship Specialty Start Date End Date Jamari Byrne MD [address] [place] [phone] PCP - General Family Medicine 08/19/23 Aegis Console Operator Track Relationship Specialty Start Date End Date Jamari Byrne MD [address] [place] [address] PCP - General Family Medicine 08/19/23 Aegis Console Operator Track Relationship Specialty Start Date End Date Jamari Byrne MD [address] [place] [address] PCP - General Family Medicine 08/19/23 Aegis Console Operator Track Relationship Specialty Start Date End Date Jamari Byrne MD [address] [place] [address] PCP - General Family Medicine 08/19/23 Aegis Console Operator Track Relationship Specialty Start Date End Date Jamari Byrne MD [address] [place] [address] PCP - General Family Medicine 08/19/23 Aegis Console Operator Track Relationship Specialty Start Date End Date Jamari Byrne MD [address] [place] [address] PCP - General Family Medicine 08/19/23 Aegis Console Operator Track Relationship Specialty Start Date End Date Jamari Byrne MD [address] [place] [address] PCP - General Family Medicine 08/19/23 Aegis Console Operator Track Relationship Specialty Start Date End Date Jamari Byrne MD [address] [place] [address] PCP - General Family Medicine 08/19/23 Aegis Console Operator Track Relationship Specialty Start Date End Date Jamari Byrne MD [address] [place] [address] PCP - General Family Medicine 08/19/23 Aegis Console Operator Track Relationship Specialty Start Date End Date Jamari Byrne MD [address] [place] [address] PCP - General Family Medicine 08/19/23 Aegis Console Operator Track Relationship Specialty Start Date End Date Jamari Byrne MD [address] [place] [address] PCP - General Family Medicine 08/19/23 Aegis Console Operator Track Relationship Specialty Start Date End Date Jamari Byrne MD [address] [place] [address] PCP - General Family Medicine 08/19/23 Team Status: Inactive Member Role Status Dates Dr. Jamari Byrne MD Primary Care Provider Active Start: November 15, 2024 End: November 15, 2024 Dr. Whit Patel MD Attending Provider Ac tive Start: November 15, 2024 End: November 15, 2024 Dr. Whit Patel MD Referring Provider Ac tive Start: November 15, 2024 End: November 15, 2024 Aegis Console Operator Track Relationship Specialty Start Date End Date Jamari Byrne MD [address] [place] [address] PCP - General Family Medicine 08/19/23 Aegis Console Operator Track Relationship Specialty Start Date End Date Jamari Byrne MD [address] [place] [address] PCP - General Family Medicine 08/19/23 Aegis Console Operator Track Relationship Specialty Start Date End Date Jamari Byrne MD [address] [place] [address] PCP - General Family Medicine 08/19/23 Aegis Console Operator Track Relationship Specialty Start Date End Date Jamari Byrne MD [address] [place] [address] PCP - General Family Medicine 08/19/23 Aegis Console Operator Track Relationship Specialty Start Date End Date Jamari Byrne MD [address] [place] [address] PCP - General Family Medicine 08/19/23 Aegis Console Operator Track Relationship Specialty Start Date End Date Jamari Byrne MD [address] [place] [address] PCP - General Family Medicine 08/19/23 Aegis Console Operator Track Relationship Specialty Start Date End Date Jamari Byrne MD [address] [facility] [address] PCP - General Family Medicine 08/19/23 Aegis Console Operator Track Relationship Specialty Start Date End Date Jamari Byrne MD [address] [place] [address] PCP - General Family Medicine 08/19/23 Team [...] December 16, 2024 End: December 16, 2024 Aegis Console Operator Track Relationship Specialty Start Date End Date Jamari Byrne MD [address] [place] [address] PCP - General Family Medicine 08/19/23 Aegis Console Operator Track Relationship Specialty Start Date End Date Jamari Byrne MD [address] [place] [address] PCP - General Family Medicine 08/19/23 Team [...] January 20, 2025 End: January 21, 2025 Aegis Console Operator Track Relationship Specialty Start Date End Date Jamari Byrne MD [address] [place] [address] PCP - General Family Medicine 08/19/23 Team Status: Inactive Member Role/Relationship Status Dates [...] December 16, 2024 End: December 16, 2024 Team Status: Inactive Member Role/Relationship Status Dates Dr. Jamari Byrne MD Primary Care Provider Active Start: January 20, 2025 End: January 21, 2025 Dr. Elie Mo DO Referring Provider Active Start: January 20, 2025 End: January 21, 2025 Dr. Elie Mo DO Emergency Provider Active Start: January 20, 2025 End: January 21, 2025 Team Status: Inactive Member Role/Relationship Status Dates Dr. Jamari Byrne MD Primary Care Provider Active Start: January 23, 2025 End: January 23, 2025 Dr. Ian Rocha MD Emergency Provider Active S tart: January 23, 2025 End: January 23, 2025 Aegis Console Operator Track Relationship Specialty Start Date End Date Jamari Byrne MD [address] [facility], [place] [address] PCP - General 11/12/21 Jamari Byrne MD [address] [facility], [address] [address] PCP - [facility] PCP 08/07/24 Team Status: Inactive Member Role/Relationship Status Dates Dr. Jamari Byrne MD Primary Care Provider Active Start: January 20, 2025 End: January 21, 2025 Dr. Elie Mo DO Attending Provider Active Start: January 20, 2025 End: January 21, 2025 Dr. Elie Mo DO Referring Provider Active Start: January 20, 2025 End: January 21, 2025 Dr. Elie Mo DO Emergency Provider Active Start: January 20, 2025 End: January 21, 2025 Team Status: Inactive Member Role/Relationship Status Dates Dr. Jamari Byrne MD Primary Care Provider Active Start: January 26, 2025 End: January 26, 2025 Dr. Remus Ungur , DO Emergency Provider Active S tart: January 26, 2025 End: January 26, 2025 Aegis Console Operator Track Relationship Specialty Start Date End Date Jamari Byrne MD [address] [place] [address] PCP - General Family Medicine 08/19/23 Aegis Console Operator Track Relationship Specialty Start Date End Date Jamari Byrne MD [address] [place] [address] PCP - General Family Medicine 08/19/23 Aegis Console Operator Track Relationship Specialty Start Date End Date Jamari Byrne MD [address] [facility], [address] [place] [address] PCP - General 11/12/21 Jamari Byrne MD [address] [facility], [address] [place] [address] PCP - Junaid APONTEO PCP 08/07/24 Aegis Console Operator Track Relationship Specialty Start Date End Date Jamari Byrne MD [address] [place] [address] PCP - General Family Medicine 08/19/23 Aegis Console Operator Track Relationship Specialty Start Date End Date Jamari Byrne MD [address] [place] [address] PCP - General Family Medicine 08/19/23 Aegis Console Operator Track Relationship Specialty Start Date End Date Jamari Byrne MD [address] [facility], [address] [place] [address] PCP - General Family Medicine 01/29/25 Aegis Console Operator Track Relationship Specialty Start Date End Date Jamari Byrne MD [address] [facility], [facility] [address] [place] [phone] PCP - General 11/12/21 Jamari Byrne MD [address] [facility], [facility] [address] [place] [phone] PCP - [facility] PCP 08/07/24 Source Comments (unrecognize d section and content) In the event this informatio n is protected by the Federal Confidentiality of Alcohol and Drug Abuse Patient Records regulations: The Federal rules restrict any use of the information to criminally investigate or prosecute any alcohol or drug abuse patient.Wilson HealthIn the event this information is protected by the Federal Confidentiality of Alcohol and Drug Abuse Patient Records regulations: The Federal rules restrict any use of the information to criminally investigate or prosecute any alcohol or drug abuse patient.[facility] the event this information is protected by the Federal Confidentiality of Alcohol and Drug Abuse Patient Records regulations: The Federal rules restrict any use of the information to criminally investigate or prosecute any alcohol or drug abuse patient.[facility]In the event this information is protected by the Federal Confidentiality of Alcohol and Drug Abuse Patient Records regulations: The Federal rules restrict any use of the information to criminally investigate or prosecute any alcohol or drug abuse patient.[facility]In the event this information is protected by the Federal Confidentiality of Alcohol and Drug Abuse Patient Records regulations: The Federal rules restrict any use of the information to criminally investigate or prosecute any alcohol or drug abuse patient.[facility]In the event this information is protected by the Federal Confidentiality of Alcohol and Drug Abuse Patient Records regulations: The Federal rules restrict any use of the information to criminally investigate or prosecute any alcohol or drug abuse patient.[facility]In the event this information is protected by the Federal Confidentiality of Alcohol and Drug Abuse Patient Records regulations: The Federal rules restrict any use of the information to criminally investigate or prosecute any alcohol or drug abuse patient.[facility]In the event this information is protected by the Federal Confidentiality of Alcohol and Drug Abuse Patient Records regulations: The Federal rules restrict any use of the information to criminally investigate or prosecute any alcohol or drug abuse patient.[facility]In the event this information is protected by the Federal Confidentiality of Alcohol and Drug Abuse Patient Records regulations: The Federal rules restrict any use of the information to criminally investigate or prosecute any alcohol or drug abuse patient.[facility]In the event this information is protected by the Federal Confidentiality of Alcohol and Drug Abuse Patient Records regulations: The Federal rules restrict any use of the information to criminally investigate or prosecute any alcohol or drug abuse patient.[facility]In the event this information is protected by the Federal Confidentiality of Alcohol and Drug Abuse Patient Records regulations: The Federal rules restrict any use of the information to criminally investigate or prosecute any alcohol or drug abuse patient.[facility]In the event this information is protected by the Federal Confidentiality of Alcohol and Drug Abuse Patient Records regulations: The Federal rules restrict any use of the information to criminally investigate or prosecute any alcohol or drug abuse patient.[facility]In the event this information is protected by the Federal Confidentiality of Alcohol and Drug Abuse Patient Records regulations: The Federal rules restrict any use of the information to criminally investigate or prosecute any alcohol or drug abuse patient.[facility]In the event this information is protected by the Federal Confidentiality of Alcohol and Drug Abuse Patient Records regulations: The Federal rules restrict any use of the information to criminally investigate or prosecute any alcohol or drug abuse patient.[facility]In the event this information is protected by the Federal Confidentiality of Alcohol and Drug Abuse Patient Records regulations: The Federal rules restrict any use of the information to criminally investigate or prosecute any alcohol or drug abuse patient.[facility] the event this information is protected by the Federal Confidentiality of Alcohol and Drug Abuse Patient Records regulations: The Federal rules restrict any use of the information to criminally investigate or prosecute any alcohol or drug abuse patient.[facility]In the event this information is protected by the Federal Confidentiality of Alcohol and Drug Abuse Patient Records regulations: The Federal rules restrict any use of the information to criminally investigate or prosecute any alcohol or drug abuse patient.[facility]In the event this information is protected by [...] or prosecute any alcohol or drug abuse patient.[facility]In the event this information is protected by the Federal Confidentiality of Alcohol and Drug Abuse Patient Records regulations: The Federal rules restrict any use of the information to criminally investigate or prosecute any alcohol or drug abuse patient.[facility]In the event this information is protected by the Federal Confidentiality of Alcohol and Drug Abuse Patient Records regulations: The Federal rules restrict any use of the information to criminally investigate or prosecute any alcohol or drug abuse patient.[facility]In the event this information is protected by the Federal Confidentiality of Alcohol and Drug Abuse Patient Records regulations: The Federal rules restrict any use of the information to criminally investigate or prosecute any alcohol or drug abuse patient.[facility]In the event this information is protected by the Federal Confidentiality of Alcohol and Drug Abuse Patient Records regulations: The Federal rules restrict any use of the information to criminally investigate or prosecute any alcohol or drug abuse patient.[facility]In the event this information is protected by the Federal Confidentiality of Alcohol and Drug Abuse Patient Records regulations: The Federal rules restrict any use of the information to criminally investigate or prosecute any alcohol or drug abuse patient.[facility]In the event this information is protected by the Federal Confidentiality of Alcohol and Drug Abuse Patient Records regulations: The Federal rules restrict any use of the information to criminally investigate or prosecute any alcohol or drug abuse patient.[facility]In the event this information is protected by the Federal Confidentiality of Alcohol and Drug Abuse Patient Records regulations: The Federal rules restrict any use of the information to criminally investigate or prosecute any alcohol or drug abuse patient.[facility]In the event this information is protected by the Federal Confidentiality of Alcohol and Drug Abuse Patient Records regulations: The Federal rules restrict any use of the information to criminally investigate or prosecute any alcohol or drug abuse patient.[facility]In the event this information is protected by the Federal Confidentiality of Alcohol and Drug Abuse Patient Records regulations: The Federal rules restrict any use of the information to criminally investigate or prosecute any alcohol or drug abuse patient.[facility]In the event this information is protected by the Federal Confidentiality of Alcohol and Drug Abuse Patient Records regulations: The Federal rules restrict any use of the information to criminally investigate or prosecute any alcohol or drug abuse patient.[facility]In the event this information is protected by the Federal Confidentiality of Alcohol and Drug Abuse Patient Records regulations: The Federal rules restrict any use of the information to criminally investigate or prosecute any alcohol or drug abuse patient.[facility]In the event this information is protected by the Federal Confidentiality of Alcohol and Drug Abuse Patient Records regulations: The Federal rules restrict any use of the information to criminally investigate or prosecute any alcohol or drug abuse patient.[facility]In the event this information is protected by the Federal Confidentiality of Alcohol and Drug Abuse Patient Records regulations: The Federal rules restrict any use of the information to criminally investigate or prosecute any alcohol or drug abuse patient.[facility]In the event this information is protected by the Federal Confidentiality of Alcohol and Drug Abuse Patient Records regulations: The Federal rules restrict any use of the information to criminally investigate or prosecute any alcohol or drug abuse patient.[facility]In the event this information is protected by the Federal Confidentiality of Alcohol and Drug Abuse Patient Records regulations: The Federal rules restrict any use of the information to criminally investigate or prosecute any alcohol or drug abuse patient.[facility]In the event this information is protected by the Federal Confidentiality of Alcohol and Drug Abuse Patient Records regulations: The Federal rules restrict any use of the information to criminally investigate or prosecute any alcohol or drug abuse patient.[facility]In the event this information is protected by the Federal Confidentiality of Alcohol and Drug Abuse Patient Records regulations: The Federal rules restrict any use of the information to criminally investigate or prosecute any alcohol or drug abuse patient.[facility]In the event this information is protected by the Federal Confidentiality of Alcohol and Drug Abuse Patient Records regulations: The Federal rules restrict any use of the information to criminally investigate or prosecute any alcohol or drug abuse patient.[facility]In the event this information is protected by the Federal Confidentiality of Alcohol and Drug Abuse Patient Records regulations: The Federal rules restrict any use of the information to criminally investigate or prosecute any alcohol or drug abuse patient.[facility]In the event this information is protected by the Federal Confidentiality of Alcohol and Drug Abuse Patient Records regulations: The Federal rules restrict any use of the information to criminally investigate or prosecute any alcohol or drug abuse patient.[facility]In the event this information is protected by the Federal Confidentiality of Alcohol and Drug Abuse Patient Records regulations: The Federal rules restrict any use of the information to criminally investigate or prosecute any alcohol or drug abuse patient.[facility]In the event this information is protected by the Federal Confidentiality of Alcohol and Drug Abuse Patient Records regulations: The Federal rules restrict any use of the information to criminally investigate or prosecute any alcohol or drug abuse patient.[facility]In the event this information is protected by the Federal Confidentiality of Alcohol and Drug Abuse Patient Records regulations: The Federal rules restrict any use of the information to criminally investigate or prosecute any alcohol or drug abuse patient.[facility]In the event this information is protected by the Federal Confidentiality of Alcohol and Drug Abuse Patient Records regulations: The Federal rules restrict any use of the information to criminally investigate or prosecute any alcohol or drug abuse patient.[facility]In the event this information is protected by the Federal Confidentiality of Alcohol and Drug Abuse Patient Records regulations: The Federal rules restrict any use of the information to criminally investigate or prosecute any alcohol or drug abuse patient.[facility]In the event this information is protected by the Federal Confidentiality of Alcohol and Drug Abuse Patient Records regulations: The Federal rules restrict any use of the information to criminally investigate or prosecute any alcohol or drug abuse patient.[facility]In the event this information is protected by the Federal Confidentiality of Alcohol and Drug Abuse Patient Records regulations: The Federal rules restrict any use of the information to criminally investigate or prosecute any alcohol or drug abuse patient.[facility]In the event this information is protected by the Federal Confidentiality of Alcohol and Drug Abuse Patient Records regulations: The Federal rules restrict any use of the information to criminally investigate or prosecute any alcohol or drug abuse patient.[facility]In the event this information is protected by the Federal Confidentiality of Alcohol and Drug Abuse Patient Records regulations: The Federal rules restrict any use of the information to criminally investigate or prosecute any alcohol or drug abuse patient.[facility]In the event this information is protected by the Federal Confidentiality of Alcohol and Drug Abuse Patient Records regulations: The Federal rules restrict any use of the information to criminally investigate or prosecute any alcohol or drug abuse patient.[facility]In the event this information is protected by the Federal Confidentiality of Alcohol and Drug Abuse Patient Records regulations: The Federal rules restrict any use of the information to criminally investigate or prosecute any alcohol or drug abuse patient.[facility]In the event this information is protected by the Federal Confidentiality of Alcohol and Drug Abuse Patient Records regulations: The Federal rules restrict any use of the information to criminally investigate or prosecute any alcohol or drug abuse patient.[facility]In the event this information is protected by the Federal Confidentiality of Alcohol and Drug Abuse Patient Records regulations: The Federal rules restrict any use of the information to criminally investigate or prosecute any alcohol or drug abuse patient.[facility]In the event this information is protected by the Federal Confidentiality of Alcohol and Drug Abuse Patient Records regulations: The Federal rules restrict any use of the information to criminally investigate or prosecute any alcohol or drug abuse patient.[facility]In the event this information is protected by the Federal Confidentiality of Alcohol and Drug Abuse Patient Records regulations: The Federal rules restrict any use of the information to criminally investigate or prosecute any alcohol or drug abuse patient.[facility]In the event this information is protected by the Federal Confidentiality of Alcohol and Drug Abuse Patient Records regulations: The Federal rules restrict any use of the information to criminally investigate or prosecute any alcohol or drug abuse patient.[facility]In the event this information is protected by the Federal Confidentiality of Alcohol and Drug Abuse Patient Records regulations: The Federal rules restrict any use of the information to criminally investigate or prosecute any alcohol or drug abuse patient.[facility]In the event this information is protected by the Federal Confidentiality of Alcohol and Drug Abuse Patient Records regulations: The Federal rules restrict any use of the information to criminally investigate or prosecute any alcohol or drug abuse patient.[facility]In the event this information is protected by the Federal Confidentiality of Alcohol and Drug Abuse Patient Records regulations: The Federal rules restrict any use of the information to criminally investigate or prosecute any alcohol or drug abuse patient.[facility]In the event this information is protected by the Federal Confidentiality of Alcohol and Drug Abuse Patient Records regulations: The Federal rules restrict any use of the information to criminally investigate or prosecute any alcohol or drug abuse patient.[facility]In the event this information is protected by the Federal Confidentiality of Alcohol and Drug Abuse Patient Records regulations: The Federal rules restrict any use of the information to criminally investigate or prosecute any alcohol or drug abuse patient.[facility]In the event this information is protected by the Federal Confidentiality of Alcohol and Drug Abuse Patient Records regulations: The Federal rules restrict any use of the information to criminally investigate or prosecute any alcohol or drug abuse patient.[facility]In the event this information is protected by the Federal Confidentiality of Alcohol and Drug Abuse Patient Records regulations: The Federal rules restrict any use of the information to criminally investigate or prosecute any alcohol or drug abuse patient.[facility]In the event this information is protected by the Federal Confidentiality of Alcohol and Drug Abuse Patient Records regulations: The Federal rules restrict any use of the information to criminally investigate or prosecute any alcohol or drug abuse patient.[facility]In the event this information is protected by the Federal Confidentiality of Alcohol and Drug Abuse Patient Records regulations: The Federal rules restrict any use of the information to criminally investigate or prosecute any alcohol or drug abuse patient.[facility]In the event this information is protected by the Federal Confidentiality of Alcohol and Drug Abuse Patient Records regulations: The Federal rules restrict any use of the information to criminally investigate or prosecute any alcohol or drug abuse patient.[facility] the event this information is protected by the Federal Confidentiality of Alcohol and Drug Abuse Patient Records regulations: The Federal rules restrict any use of the information to criminally investigate or prosecute any alcohol or drug abuse patient.[facility]In the event this information is protected by the Federal Confidentiality of Alcohol and Drug Abuse Patient Records regulations: The Federal rules restrict any use of the information to criminally investigate or prosecute any alcohol or drug abuse patient.[facility]In the event this information is protected by [...] or prosecute any alcohol or drug abuse patient.[facility]In the event this information is protected by the Federal Confidentiality of Alcohol and Drug Abuse Patient Records regulations: The Federal rules restrict any use of the information to criminally investigate or prosecute any alcohol or drug abuse patient.[facility]In the event this information is protected by the Federal Confidentiality of Alcohol and Drug Abuse Patient Records regulations: The Federal rules restrict any use of the information to criminally investigate or prosecute any alcohol or drug abuse patient.[facility]In the event this information is protected by the Federal Confidentiality of Alcohol and Drug Abuse Patient Records regulations: The Federal rules restrict any use of the information to criminally investigate or prosecute any alcohol or drug abuse patient.[facility]In the event this information is protected by the Federal Confidentiality of Alcohol and Drug Abuse Patient Records regulations: The Federal rules restrict any use of the information to criminally investigate or prosecute any alcohol or drug abuse patient.[facility]In the event this information is protected by the Federal Confidentiality of Alcohol and Drug Abuse Patient Records regulations: The Federal rules restrict any use of the information to criminally investigate or prosecute any alcohol or drug abuse patient.[facility]In the event this information is protected by the Federal Confidentiality of Alcohol and Drug Abuse Patient Records regulations: The Federal rules restrict any use of the information to criminally investigate or prosecute any alcohol or drug abuse patient.[facility]In the event this information is protected by the Federal Confidentiality of Alcohol and Drug Abuse Patient Records regulations: The Federal rules restrict any use of the information to criminally investigate or prosecute any alcohol or drug abuse patient.[facility]In the event this information is protected by the Federal Confidentiality of Alcohol and Drug Abuse Patient Records regulations: The Federal rules restrict any use of the information to criminally investigate or prosecute any alcohol or drug abuse patient.[facility]In the event this information is protected by the Federal Confidentiality of Alcohol and Drug Abuse Patient Records regulations: The Federal rules restrict any use of the information to criminally investigate or prosecute any alcohol or drug abuse patient.[facility]In the event this information is protected by the Federal Confidentiality of Alcohol and Drug Abuse Patient Records regulations: The Federal rules restrict any use of the information to criminally investigate or prosecute any alcohol or drug abuse patient.[facility]In the event this information is protected by the Federal Confidentiality of Alcohol and Drug Abuse Patient Records regulations: The Federal rules restrict any use of the information to criminally investigate or prosecute any alcohol or drug abuse patient.[facility]In the event this information is protected by the Federal Confidentiality of Alcohol and Drug Abuse Patient Records regulations: The Federal rules restrict any use of the information to criminally investigate or prosecute any alcohol or drug abuse patient.[facility]In the event this information is protected by the Federal Confidentiality of Alcohol and Drug Abuse Patient Records regulations: The Federal rules restrict any use of the information to criminally investigate or prosecute any alcohol or drug abuse patient.[facility]In the event this information is protected by the Federal Confidentiality of Alcohol and Drug Abuse Patient Records regulations: The Federal rules restrict any use of the information to criminally investigate or prosecute any alcohol or drug abuse patient.[facility]In the event this information is protected by the Federal Confidentiality of Alcohol and Drug Abuse Patient Records regulations: The Federal rules restrict any use of the information to criminally investigate or prosecute any alcohol or drug abuse patient.[facility]In the event this information is protected by the Federal Confidentiality of Alcohol and Drug Abuse Patient Records regulations: The Federal rules restrict any use of the information to criminally investigate or prosecute any alcohol or drug abuse patient.[facility]In the event this information is protected by the Federal Confidentiality of Alcohol and Drug Abuse Patient Records regulations: The Federal rules restrict any use of the information to criminally investigate or prosecute any alcohol or drug abuse patient.[facility]In the event this information is protected by the Federal Confidentiality of Alcohol and Drug Abuse Patient Records regulations: The Federal rules restrict any use of the information to criminally investigate or prosecute any alcohol or drug abuse patient.[facility]In the event this information is protected by the Federal Confidentiality of Alcohol and Drug Abuse Patient Records regulations: The Federal rules restrict any use of the information to criminally investigate or prosecute any alcohol or drug abuse patient.[facility]In the event this information is protected by the Federal Confidentiality of Alcohol and Drug Abuse Patient Records regulations: The Federal rules restrict any use of the information to criminally investigate or prosecute any alcohol or drug abuse patient.[facility]In the event this information is protected by the Federal Confidentiality of Alcohol and Drug Abuse Patient Records regulations: The Federal rules restrict any use of the information to criminally investigate or prosecute any alcohol or drug abuse patient.[facility]In the event this information is protected by the Federal Confidentiality of Alcohol and Drug Abuse Patient Records regulations: The Federal rules restrict any use of the information to criminally investigate or prosecute any alcohol or drug abuse patient.[facility]In the event this information is protected by the Federal Confidentiality of Alcohol and Drug Abuse Patient Records regulations: The Federal rules restrict any use of the information to criminally investigate or prosecute any alcohol or drug abuse patient.[facility]In the event this information is protected by the Federal Confidentiality of Alcohol and Drug Abuse Patient Records regulations: The Federal rules restrict any use of the information to criminally investigate or prosecute any alcohol or drug abuse patient.[facility]In the event this information is protected by the Federal Confidentiality of Alcohol and Drug Abuse Patient Records regulations: The Federal rules restrict any use of the information to criminally investigate or prosecute any alcohol or drug abuse patient.[facility] HealthIn the event this information is protected by the Federal Confidentiality of Alcohol and Drug Abuse Patient Records regulations: The Federal rules restrict any use of the information to criminally investigate or prosecute any alcohol or drug abuse patient.[facility] HealthIn the event this information is protected by the Federal Confidentiality of Alcohol and Drug Abuse Patient Records regulations: The Federal rules restrict any use of the information to criminally investigate or prosecute any alcohol or drug abuse patient.[facility] HealthIn the event this information is protected by the Federal Confidentiality of Alcohol and Drug Abuse Patient Records regulations: The Federal rules restrict any use of the information to criminally investigate or prosecute any alcohol or drug abuse patient.[facility] HealthIn the event this information is protected by the Federal Confidentiality of Alcohol and Drug Abuse Patient Records regulations: The Federal rules restrict any use of the information to criminally investigate or prosecute any alcohol or drug abuse patient.[facility] HealthIn the event this information is protected by the Federal Confidentiality of Alcohol and Drug Abuse Patient Records regulations: The Federal rules restrict any use of the information to criminally investigate or prosecute any alcohol or drug abuse patient.[facility] HealthIn the event this information is protected by the Federal Confidentiality of Alcohol and Drug Abuse Patient Records regulations: The Federal rules restrict any use of the information to criminally investigate or prosecute any alcohol or drug abuse patient.[facility] HealthIn the event this information is protected by the Federal Confidentiality of Alcohol and Drug Abuse Patient Records regulations: The Federal rules restrict any use of the information to criminally investigate or prosecute any alcohol or drug abuse patient.[facility] HealthIn the event this information is protected by the Federal Confidentiality of Alcohol and Drug Abuse Patient Records regulations: The Federal rules restrict any use of the information to criminally investigate or prosecute any alcohol or drug abuse patient.[facility] HealthIn the event this information is protected by the Federal Confidentiality of Alcohol and Drug Abuse Patient Records regulations: The Federal rules restrict any use of the information to criminally investigate or prosecute any alcohol or drug abuse patient.[facility] HealthIn the event this information is protected by the Federal Confidentiality of Alcohol and Drug Abuse Patient Records regulations: The Federal rules restrict any use of the information to criminally investigate or prosecute any alcohol or drug abuse patient.[facility] HealthIn the event this information is protected by the Federal Confidentiality of Alcohol and Drug Abuse Patient Records regulations: The Federal rules restrict any use of the information to criminally investigate or prosecute any alcohol or drug abuse patient.[facility] HealthIn the event this information is protected by the Federal Confidentiality of Alcohol and Drug Abuse Patient Records regulations: The Federal rules restrict any use of the information to criminally investigate or prosecute any alcohol or drug abuse patient.[facility] HealthIn the event this information is protected by the Federal Confidentiality of Alcohol and Drug Abuse Patient Records regulations: The Federal rules restrict any use of the information to criminally investigate or prosecute any alcohol or drug abuse patient.[facility] HealthIn the event this information is protected by the Federal Confidentiality of Alcohol and Drug Abuse Patient Records regulations: The Federal rules restrict any use of the information to criminally investigate or prosecute any alcohol or drug abuse patient.[facility] HealthIn the event this information is protected by the Federal Confidentiality of Alcohol and Drug Abuse Patient Records regulations: The Federal rules restrict any use of the information to criminally investigate or prosecute any alcohol or drug abuse patient.[facility] HealthIn the event this information is protected by the Federal Confidentiality of Alcohol and Drug Abuse Patient Records regulations: The Federal rules restrict any use of the information to criminally investigate or prosecute any alcohol or drug abuse patient.[facility] HealthIn the event this information is protected by the Federal Confidentiality of Alcohol and Drug Abuse Patient Records regulations: The Federal rules restrict any use of the information to criminally investigate or prosecute any alcohol or drug abuse patient.[facility] HealthIn the event this information is protected by the Federal Confidentiality of Alcohol and Drug Abuse Patient Records regulations: The Federal rules restrict any use of the information to criminally investigate or prosecute any alcohol or drug abuse patient.[facility] HealthIn the event this information is protected by the Federal Confidentiality of Alcohol and Drug Abuse Patient Records regulations: The Federal rules restrict any use of the information to criminally investigate or prosecute any alcohol or drug abuse patient.[facility] HealthIn the event this information is protected by the Federal Confidentiality of Alcohol and Drug Abuse Patient Records regulations: The Federal rules restrict any use of the information to criminally investigate or prosecute any alcohol or drug abuse patient.[facility] HealthIn the event this information is protected by the Federal Confidentiality of Alcohol and Drug Abuse Patient Records regulations: The Federal rules restrict any use of the information to criminally investigate or prosecute any alcohol or drug abuse patient.[facility] the event this information is protected by the Federal Confidentiality of Alcohol and Drug Abuse Patient Records regulations: The Federal rules restrict any use of the information to criminally investigate or prosecute any alcohol or drug abuse patient.[facility] HealthIn the event this information is protected by the Federal Confidentiality of Alcohol and Drug Abuse Patient Records regulations: The Federal rules restrict any use of the information to criminally investigate or prosecute any alcohol or drug abuse patient.[facility] HealthIn the event this information is protected by [...] or prosecute any alcohol or drug abuse patient.[facility] HealthIn the event this information is protected by the Federal Confidentiality of Alcohol and Drug Abuse Patient Records regulations: The Federal rules restrict any use of the information to criminally investigate or prosecute any alcohol or drug abuse patient.[facility] HealthIn the event this information is protected by the Federal Confidentiality of Alcohol and Drug Abuse Patient Records regulations: The Federal rules restrict any use of the information to criminally investigate or prosecute any alcohol or drug abuse patient.[facility] HealthIn the event this information is protected by the Federal Confidentiality of Alcohol and Drug Abuse Patient Records regulations: The Federal rules restrict any use of the information to criminally investigate or prosecute any alcohol or drug abuse patient.[facility] Scheduled Active and Recently Administ ered Medications [...] Provid er: Leonie De La Torre RN) Scheduled Medication Order 01/22/2025 01/23/2025 01/24/2025 sodium chloride 0.9 % bolus 1,000 mL (COMPLETED) 1,000 mL, intravenous, at 999 mL/hr, Administer over 1 Hours, Once, On 01/24/25 at 1420, For 1 dose 1454 (New Bag - Prov ider: Rekha Ruby, [id number] (Stopped - Provider: Rekha Ruby RN) Goals (unrecognized section and content) Goals [...] BE BASED ON THE PRIMARY CLINICAL RECORDS. [employer] [facility]. provides no warranty or guarantee of the accuracy or completeness of information in this document.
[2025-04-20 23:01] LABS: Anion Gap 33 (5-15); Carbon Dioxide 2.2 mmol/L (21.0-32.0); Chloride 97 mmol/L (98-108); Potassium 3.7 mmol/L (3.3-5.1)
[2025-04-20 23:21] LABS: Magnesium 2.2 mg/dL (1.5-2.2)
[2025-04-20 23:55] LABS: Reflex Lactate? Y
[2025-04-21] VITALS (30 sets, daily range): BP systolic 117–161; BP diastolic 65–109; PULSE 94–132; RESP 17–29; TEMP 34.9–37.3; O2SAT 91–100; BMI 29.9; BMI 30.4
[2025-04-21] MEDS: 0.9% Normal Saline (1000mL) 1,000 ML 150 ML IV (00:21)
[2025-04-21] MEDS: Sodium Bicarbonate 8.4% 50 ML Syringe 50 MEQ IV ×4 (00:31→05:08)
[2025-04-21] MEDS: 0.9% Normal Saline (1000mL) 1,000 ML 999 ML IV (00:31)
[2025-04-21] MEDS: NYSTATIN 500,000 UNIT/5 ML UDC 500000 UNIT PO ×5 (01:15→21:21)
[2025-04-21] MEDS: Pantoprazole Sodium 40 MG in 0.9% Normal Saline (100mL MB+) 100 ML 330 MG IV ×3 (01:19→21:20)
[2025-04-21] MEDS: Dext 5%-0.45% NS 1,000 ML 150 ML IV ×3 (02:33→16:54)
[2025-04-21 03:17] LABS: Anion Gap 23 (5-15); BUN 11 mg/dL (4-19); BUN/Creat Ratio 21.7 RATIO (10-20); Calcium,Total 6.9 mg/dL (7.6-11.0); Carbon Dioxide 6.6 mmol/L (21.0-32.0); Chloride 109 mmol/L (98-108); Estimated Creatinine Clearance 146.57 ml/min (50-250); Glucose 251 mg/dL (70-99); Potassium 2.9 mmol/L (3.3-5.1)
[2025-04-21 04:06] LABS: Allen Test Positive; Base Excess -17 mmol/L (-2 to +2); PO2 106 mmHG (75-100); SITE R Radial; SO2 98 % (94-98)
[2025-04-21] MEDS: Potassium Chloride 10mEq/100mL 10 MEQ/100 ML IV.SOLN. 100 MEQ IV BOLUS ×12 (04:09→22:55)
[2025-04-21] MEDS: Calcium Gluconate IV 2 GM in 0.9% Normal Saline (100mL Bag) 100 ML IV (04:11)
[2025-04-21 06:57] LABS: AST(SGOT) 21 U/L (<=31); Alanine Aminotransfer ALT/SGPT 188 U/L (<=34); Albumin, Serum 3.5 g/dL (3.5-5.0); Alkaline Phosphatase 58 U/L (35-104); Anion Gap 18 (5-15); BUN 11 mg/dL (4-19); BUN/Creat Ratio 18.1 RATIO (10-20); Calcium,Total 8.1 mg/dL (7.6-11.0); Carbon Dioxide 15.0 mmol/L (21.0-32.0); Chloride 107 mmol/L (98-108); Estimated Creatinine Clearance 132.11 ml/min (50-250); Globulin 2.6 g/dL (2.2-4.2); Glucose 242 mg/dL (70-99); Potassium 2.8 mmol/L (3.3-5.1)
[2025-04-21 07:02] LABS: Magnesium 1.8 mg/dL (1.5-2.2)
[2025-04-21] MEDS: 0.9% Saline Lock 10 ML Syringe IV ×2 (07:04→21:42)
[2025-04-21 07:14] LABS: Hematocrit 34.4 % (37-47); Hemoglobin 12.7 g/dL (12.0-15.0); Immature Granulocytes Count 0.210 X10^3/uL (0.0-0.0); Mean Corp Hgb Conc 36.9 g/dL (32-36); Mean Corpuscular Volume 78.7 fL (81-99); Mean Platelet Vol. 10.7 fl (6.2-12.0); NRBC Flagged by Analyzer 0 % (0-5); Platelet Count 186 K/mm3 (150-450); RBC Distribution Width CV 12.4 % (11.6-14.6); RBC Distribution Width SD 34.7 fl (35.1-43.9); Red Blood Count 4.37 M/mm3 (4.2-5.4); White Blood Count 16.3 K/mm3 (4.4-11.0)
--- NOTE | 2025-04-21 07:25 | EX.PCM.CONCC ---
Assessment & Plan Assessment/Plan (1) UTI (urinary tract infection): (2) Diabetic ketoacidosis: PLAN: Plan RECOMMENDATIONS: 1. Continue DKA management per protocol with IV fluid resuscitation and insulin infusion. 2. Transition to basal and sliding scale coverage once anion gap has been closed x 2. 3. Aggressive electrolyte repletion as needed. 4. Empiric antimicrobials, pending cultures. 5. Continue appropriate DVT prophylaxis. 6. Encourage incentive spirometer use and mobilize patient as tolerated. IMPRESSIONS: 1. Diabetic ketoacidosis Potentially precipitated by urinary tract source of infection. The patient reported compliance with her prescribed diabetic regimen. Continue management per DKA protocol with judicious IV fluid resuscitation and continuous insulin infusion, until anion gap is closed x 2. Continue aggressive electrolyte repletion as needed. The patient is to remain n.p.o. for now, pending resolution of her DKA. In the interim, she will be continued on empiric antibiotics, pending culture results. 2. History of bipolar disorder/GERD/asthma/depression Complicates care, management, recovery and prognosis. Continue home medications as indicated. This note was generated with [employer] dictation software. It may contain incorrect words, spelling, and punctuation that were not noted in checking the note before signing. HPI Consult Data Date of Consult: 04/21/25 HPI Narrative Reason for Consultation: DKA HPI Narrative: The patient is a 30-year-old female, with a history as outlined below, who presented to the emergency department via EMS on April 20 with complaints of abdominal pain, nausea and vomiting. The patient has a known history of asthma, diabetes mellitus and underlying bipolar disorder. 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 On presentation to the emergency department, the patient was noted to be afebrile but was notably tachycardic and tachypneic. Blood pressures were stable. Oxygen saturations were stable on room air. Initial laboratory evaluation revealed a white blood cell count of 23,000. Hemoglobin was elevated at 17.2 g/dL with a platelet count of 306,000. Arterial blood gas was notable for a pH of 7.01 with a pCO2 of 7.7 and pO2 of 140. Chemistry profile was notable for a sodium of 128 with a chloride of 90, bicarbonate of 5.3, anion gap of 33 and creatinine of 0.73. Lactate was elevated at 6.3. Beta hydroxybutyrate level was elevated at 8. Urine analysis was positive for leukocyte esterase, greater than 100 urine white blood cells and 4+ urine bacteria. The patient was ultimately ordered to receive IV fluid resuscitation and was placed on an insulin infusion and empiric antimicrobials. She was subsequently admitted to the medical intensive care unit for management of her DKA. [facility] Medical History (Updated 04/20/25 @ 23:[address] Ariadne Hobbs MD) Anxiety and depression Former smoker Wears dentures Wears glasses Bipolar disorder Gastric reflux Insulin dependent diabetes mellitus Asthma Osteoarthritis Diabetes Home Medications ?Medication ?Instructions ?Recorded ?Last Taken ?Type fluoxetine 20 mg capsule 20 mg PO DAILY anxiety 11/15/24 12/16/24 History glipizide 5 mg tablet 5 mg PO BID dm 04/20/25 Unknown History metformin 500 mg tablet 500 mg PO BID dm 04/20/25 Unknown History Allergy/AdvReac Type Severity Reaction Status Date / Time aripiprazole (From Abilify) AdvReac Other Verified 04/20/25 16:55 metoclopramide (From Reglan) AdvReac Other Verified 04/20/25 16:55 ondansetron (From Zofran) AdvReac Vomiting Verified 04/20/25 16:55 quetiapine (From Seroquel) AdvReac Other Verified 04/20/25 16:55 sertraline (From Zoloft) AdvReac Other Verified 04/20/25 16:55 Family History (Updated 04/20/25 @ 23:[address] Ariadne Hobbs MD) Father Heart disease Hyperlipemia Mother COPD (chronic obstructive pulmonary disease) Surgical History History of dilation and curettage History of oral surgery History of cholecystectomy Social History (Updated 04/20/25 @ 23:[address] Ariadne Hobbs MD) household members: none Smoking Status: Former smoker alcohol intake: never substance use type: does not use ROS ROS Narrative 10 systems were reviewed with pertinent positives as noted in the HPI above. Physical Exam Const alert and no apparent distress General Appearance: cooperative and ill appearing HEENT normocephalic and head/scalp atraumatic HEENT Narrative: Dry mucous membranes Eyes EOMs intact bilaterally, conjunctivae normal and no scleral icterus Neck supple General: trachea midline Chest inspection of chest normal Resp normal respiratory effort Auscultation: Negative for rales, rhonchi or wheezes Cardio S1 normal heart sound and S2 normal heart sound Rate: tachycardic GI normal to inspection, nondistended, normoactive bowel sounds Extremity no clubbing, cyanosis or edema Skin no rashes or lesions noted Neuro CN's II-XII intact bilaterally, moves all extremities and no focal motor deficits Psych Mood & Affect: flat affect Lab / Micro Data 04/21/25 06:19 04/21/25 06:19 Labs: Laboratory Results - last 24 hr 04/20/25 18:31: WBC 23.5 H, RBC 6.05 H, Hgb 17.2 H, Hct 47.7 H, MCV 78.8 L, MCH 28.4, MCHC 36.1 H, RDW Std Deviation 34.9 L, RDW Coeff of Linda 12.5, Plt Count 306, MPV 10.2, Immature Gran % (Auto) 0.800, Neut % (Auto) 82.0 H, Lymph % (Auto) 11.4 L, [place] % (Auto) 5.2, Eos % (Auto) 0.2, Baso % (Auto) 0.4, Absolute Neuts (auto) 19.3 H, Absolute Lymphs (auto) 2.67, Nucleated RBC % 0.1, Sodium 128 L, Potassium 3.5, Chloride 90 L, Carbon Dioxide 5.3 L*, Anion Gap 33 H, BUN 12, Creatinine 0.73, Estim Creat Clear Calc 102.29, Est GFR (MDRD) Non-Af 114, BUN/Creatinine Ratio 16.6, Glucose 309 H, Calcium 9.3, Total Bilirubin 0.82, AST 35 H, ALT 312 H, Alkaline Phosphatase 86, Total Protein 8.0, Albumin 4.5, Globulin 3.5, Albumin/Globulin Ratio 1.3, Lipase 26, b-Hydroxybutyric mmol/L 7.9 H, Serum , Qual NEGATIVE 04/20/25 18:38: Urine Color Yellow, Urine Clarity Turbid, Urine pH 5.0, Ur Specific [place] 1.025, Urine Protein 100 H, Urine Glucose (UA) 1000 H, Urine Ketones 150 A*, Urine Occult Blood 50 H, Urine Nitrite Negative, Urine Bilirubin Negative, Urine Urobilinogen Normal, Ur Leukocyte Esterase 100 H, Urine RBC 0-5 SEEN, Urine WBC >100 SEEN, Ur Squamous Epith Cells 0-5 SEEN, Urine Bacteria 4+, Urine Mucus 0 SEEN 04/20/25 19:41: Lactic Acid 6.3 H* 04/20/25 21:54: POC Glucose 332 H 04/20/25 22:07: Sodium 132 L, Potassium 3.7, Chloride 97 L, Carbon Dioxide 2.2 L*, Anion Gap 33 H, Phosphorus 4.4, Magnesium 2.2 04/20/25 23:40: POC Glucose 296 H 04/21/25 00:15: Lactic Acid 5.2 H* 04/21/25 01:04: POC Glucose 258 H 04/21/25 01:56: POC Glucose 211 H 04/21/25 02:15: Sodium 139, Potassium 2.9 L, Chloride 109 H, Carbon Dioxide 6.6 L*, Anion Gap 23 H, BUN 11, Creatinine 0.53 L, Estim Creat Clear Calc 146.57, Est GFR (MDRD) Non-Af 128, BUN/Creatinine Ratio 21.7 H, Glucose 251 H, Calcium 6.9 L 04/21/25 03:00: POC Glucose 226 H 04/21/25 03:56: POC Glucose 224 H 04/21/25 05:03: POC Glucose 218 H 04/21/25 05:57: POC Glucose 206 H 04/21/25 06:19: WBC 16.3 H, RBC 4.37, Hgb 12.7, Hct 34.4 L, MCV 78.7 L, MCH 29.1, MCHC 36.9 H, RDW Std Deviation 34.7 L, RDW Coeff of Linda 12.4, Plt Count 186, MPV 10.7, Immature Gran % (Auto) 1.300 H, Neut % (Auto) 87.8 H, Lymph % (Auto) 6.1 L, [place] % (Auto) 4.5, Eos % (Auto) 0.1, Baso % (Auto) 0.2, Absolute Neuts (auto) 14.3 H, Absolute Lymphs (auto) 0.99, Nucleated RBC % 0, Sodium Cancelled 04/21/25 06:19: Sodium 140, Potassium Cancelled 04/21/25 06:19: Potassium 2.8 L, Chloride Cancelled 04/21/25 06:19: Chloride 107, Carbon Dioxide Cancelled 04/21/25 06:19: Carbon Dioxide 15.0 L, Anion Gap Cancelled 04/21/25 06:19: Anion Gap 18 H, BUN 11, Creatinine 0.59 L, Estim Creat Clear Calc 132.11, Est GFR (MDRD) Non-Af 124, BUN/Creatinine Ratio 18.1, Glucose 242 H, Hemoglobin A1c 7.6 H, Calcium 8.1, Phosphorus 0.5 L*, Magnesium 1.8, Total Bilirubin 0.42, AST 21, ALT 188 H, Alkaline Phosphatase 58, Total Protein 6.1, Albumin 3.5, Globulin 2.6, Albumin/Globulin Ratio 1.3 ABG Data ABG results: ABG 04/20/25 04/21/25 21:01 04:02 Specimen Type ART ART Sample Site L Radial R Radial pH 7.01 L* 7.32 L Bicarbonate Actual 1.9 L 9.5 L Total CO2 < 5 10 Base Excess -29 L -17 L O2 Saturation 98 98 ABG pCO2 7.7 L* 18.3 L* ABG pO2 140 H 106 H Miguel Angel Test Positive Positive O2 Delivery Device Room Air Room Air Vent Mode Not entered Not entered Crit Call To/Read Back Yes Yes Blood Gas Notified Whom Denise Stevenson White Blood Gas Notified Time 21:02:36 04:04:15 Imaging Radiology Impression Chest X-Ray 04/20/25 19:25 IMPRESSION: No focal consolidations. Reading Location: [facility] Charges/Coding Visit Charges Inpatient E&M: 20363 Init Hosp L3
[2025-04-21] MEDS: Sodium Phosphate/Na Biphos 30 MMOL in 0.9% Normal Saline (250mL Bag) 250 ML 62.5 MMOL IV (08:06)
--- NOTE | 2025-04-21 09:16 | PN.HOSP_ITS ---
Subjective Subjective Continues to have an anion gap acidosis however it is improving. Continue with electrolyte replacement Objective Data Objective Data Vital Signs: Vital Signs Temp Pulse Resp BP Pulse Ox O2 Del Method 98.4 F 116 H 17 152/93 H 100 Room Air 04/21/25 07:00 04/21/25 07:00 04/21/25 07:00 04/21/25 07:00 04/21/25 07:55 04/21/25 07:55 Oxygen Delivery Method Room Air Weight: 165 lb 2.02 oz Body Mass Index (BMI) 30.4 Intake & Output: Intake and Output for Last 24 Hours 04/20/25 04/21/25 04/22/25 03:59 03:59 03:59 Intake Total 3988.62 / 3988.62 438.20 / 438.20 Output Total 470 / 560 430 / 430 Balance 3518.62 / 3428.62 8.20 / 8.20 Lab / Micro Data 04/21/25 06:19 04/21/25 06:19 Labs: Laboratory Results - last 24 hr 04/20/25 18:31: WBC 23.5 H, RBC 6.05 H, Hgb 17.2 H, Hct 47.7 H, MCV 78.8 L, MCH 28.4, MCHC 36.1 H, RDW Std Deviation 34.9 L, RDW Coeff of Linda 12.5, Plt Count 306, MPV 10.2, Immature Gran % (Auto) 0.800, Neut % (Auto) 82.0 H, Lymph % (Auto) 11.4 L, [place] % (Auto) 5.2, Eos % (Auto) 0.2, Baso % (Auto) 0.4, Absolute Neuts (auto) 19.3 H, Absolute Lymphs (auto) 2.67, Nucleated RBC % 0.1, Sodium 128 L, Potassium 3.5, Chloride 90 L, Carbon Dioxide 5.3 L*, Anion Gap 33 H, BUN 12, Creatinine 0.73, Estim Creat Clear Calc 102.29, Est GFR (MDRD) Non-Af 114, BUN/Creatinine Ratio 16.6, Glucose 309 H, Calcium 9.3, Total Bilirubin 0.82, AST 35 H, ALT 312 H, Alkaline Phosphatase 86, Total Protein 8.0, Albumin 4.5, Globulin 3.5, Albumin/Globulin Ratio 1.3, Lipase 26, b-Hydroxybutyric mmol/L 7.9 H, Serum , Qual NEGATIVE 04/20/25 18:38: Urine Color Yellow, Urine Clarity Turbid, Urine pH 5.0, Ur Specific [place] 1.025, Urine Protein 100 H, Urine Glucose (UA) 1000 H, Urine Ketones 150 A*, Urine Occult Blood 50 H, Urine Nitrite Negative, Urine Bilirubin Negative, Urine Urobilinogen Normal, Ur Leukocyte Esterase 100 H, Urine RBC 0-5 SEEN, Urine WBC >100 SEEN, Ur Squamous Epith Cells 0-5 SEEN, Urine Bacteria 4+, Urine Mucus 0 SEEN 04/20/25 19:41: Lactic Acid 6.3 H* 04/20/25 21:54: POC Glucose 332 H 04/20/25 22:07: Sodium 132 L, Potassium 3.7, Chloride 97 L, Carbon Dioxide 2.2 L*, Anion Gap 33 H, Phosphorus 4.4, Magnesium 2.2 04/20/25 23:40: POC Glucose 296 H 04/21/25 00:15: Lactic Acid 5.2 H* 04/21/25 01:04: POC Glucose 258 H 04/21/25 01:56: POC Glucose 211 H 04/21/25 02:15: Sodium 139, Potassium 2.9 L, Chloride 109 H, Carbon Dioxide 6.6 L*, Anion Gap 23 H, BUN 11, Creatinine 0.53 L, Estim Creat Clear Calc 146.57, Est GFR (MDRD) Non-Af 128, BUN/Creatinine Ratio 21.7 H, Glucose 251 H, Calcium 6.9 L 04/21/25 03:00: POC Glucose 226 H 04/21/25 03:56: POC Glucose 224 H 04/21/25 05:03: POC Glucose 218 H 04/21/25 05:57: POC Glucose 206 H 04/21/25 06:19: WBC 16.3 H, RBC 4.37, Hgb 12.7, Hct 34.4 L, MCV 78.7 L, MCH 29.1, MCHC 36.9 H, RDW Std Deviation 34.7 L, RDW Coeff of Linda 12.4, Plt Count 186, MPV 10.7, Immature Gran % (Auto) 1.300 H, Neut % (Auto) 87.8 H, Lymph % (Auto) 6.1 L, [place] % (Auto) 4.5, Eos % (Auto) 0.1, Baso % (Auto) 0.2, Absolute Neuts (auto) 14.3 H, Absolute Lymphs (auto) 0.99, Nucleated RBC % 0, Sodium Cancelled 04/21/25 06:19: Sodium 140, Potassium Cancelled 04/21/25 06:19: Potassium 2.8 L, Chloride Cancelled 04/21/25 06:19: Chloride 107, Carbon Dioxide Cancelled 04/21/25 06:19: Carbon Dioxide 15.0 L, Anion Gap Cancelled 04/21/25 06:19: Anion Gap 18 H, BUN 11, Creatinine 0.59 L, Estim Creat Clear Calc 132.11, Est GFR (MDRD) Non-Af 124, BUN/Creatinine Ratio 18.1, Glucose 242 H , Hemoglobin A1c 7.6 H, Calcium 8.1, Phosphorus 0.5 L*, Magnesium 1.8, Total Bilirubin 0.42, AST 21, ALT 188 H, Alkaline Phosphatase 58, Total Protein 6.1, Albumin 3.5, Globulin 2.6, Albumin/Globulin Ratio 1.3 04/21/25 06:58: POC Glucose 205 H 04/21/25 07:59: POC Glucose 189 H ABG Data ABG results: ABG 04/20/25 04/21/25 21:01 04:02 Specimen Type ART ART Sample Site L Radial R Radial pH 7.01 L* 7.32 L Bicarbonate Actual 1.9 L 9.5 L Total CO2 < 5 10 Base Excess -29 L -17 L O2 Saturation 98 98 ABG pCO2 7.7 L* 18.3 L* ABG pO2 140 H 106 H Miguel Angel Test Positive Positive O2 Delivery Device Room Air Room Air Vent Mode Not entered Not entered Crit Call To/Read Back Yes Yes Blood Gas Notified Whom Denise Stevenson White Blood Gas Notified Time 21:02:36 04:04:15 Radiography Diagnostic Testing: Radiology Impression Chest X-Ray 04/20/25 19:25 IMPRESSION: No focal consolidations. Reading Location: [facility] Physical Exam Narrative General: Resting, Oriented x3, Cooperative, No apparent distress HEENT: Atraumatic, PERRLA, EOMI, Normocephalic Oral: Dry mucosa, thrush Neck: Supple, No JVD Lungs: Clear to auscultation, Normal air movement, No rhonchi, No wheeze, No rales Cardiovascular: Regular rate, Regular Rhythm, Normal S1, Normal S2, No murmurs Abdomen: Soft, Non Tender, Non-Distended, No Hepato-splenomegaly Extremities: No edema, Capillary Refill Less than 3 Seconds Skin: No rashes, No breakdown Musculoskeletal: No Tenderness to Palpation of Joints or Extremities Neurological: No focal neurological deficits, moves all extremities Psych/Mental Status: Flat Assessment & Plan Assessment/Plan (1) Diabetic ketoacidosis: PLAN: Plan 1. DKA instigated by UTI/thrush ? Continue with Rocephin pending urine cultures ? Continue with the DKA protocol ? Appreciate anesthesiology medical doctor assistance ? She still has an anion gap so continue with the insulin drip and current therapies ? Continue with nystatin swish and swallow 2. Anxiety/depression/bipolar ? Stable ? Continue with her home medications 3. GERD ? Stable ? Continue with PPI DVT: Lovenox Charges/Coding Visit Charges Inpatient E&M: 08454 Subs Hosp L2
--- NOTE | 2025-04-21 10:38 | CASEMGMT ---
Social Work- SW participated in interdisciplinary rounds with care team. Pt reports to have had a baby in December, which pt mother is caring for. Pt lives with SO/baby father. 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 Pt reports that her mother is a significant support. Pt reports that she does not have HCPOA and does not want information. SW provided education on documents and use. Pt reports that she would want her mother to make decisions in the event that she was unable, but declines to complete documents. SW provided information if pt changes her mind. Pt reports no other needs at this time. TYRESE Marroquin
[2025-04-21] MEDS: Potassium Phosphate 30 MM in 0.9% Normal Saline (250mL Bag) 250 ML 55 MM IV (10:51)
[2025-04-21 11:53] LABS: Anion Gap 16 (5-15); Carbon Dioxide 17.7 mmol/L (21.0-32.0); Chloride 106 mmol/L (98-108); Potassium 2.4 mmol/L (3.3-5.1)
--- NOTE | 2025-04-21 13:53 | CT_ITS ---
PROCEDURE: BRAIN/HEAD WITHOUT CONTRAST 04/21/2025 REASON FOR EXAM: VISION LOSS TECHNIQUE: Procedure Code: CTBR Modality: CT Procedure: BRAIN/HEAD WITHOUT CONTRAST Coronal and Sagittal reconstruction series were provided. One or more dose reduction techniques were used (e.g., Automated exposure control, adjustment of the mA and/or kV according to patient size, use of iterative reconstruction technique. RADIATION DOSE SUMMARY: CTDlvol: 47.06 mGy DLP: 819.74 mGycm COMPARISON: None FINDINGS: Brain: Normal CSF Spaces: Normal Sinuses/Mastoids: Clear at visualized levels Bones: Unremarkable CT/Brain/Head without Contrast IMPRESSION: NORMAL NONCONTRAST HEAD CT. Reading Location: [place] [id number]
[2025-04-21] MEDS: Insulin Lispro 100 UNIT in 0.9% Normal Saline (100mL Bag) 99 ML 6.3 UNIT CONT INF (14:11)
[2025-04-21 15:56] LABS: Anion Gap 13 (5-15); Carbon Dioxide 18.3 mmol/L (21.0-32.0); Chloride 109 mmol/L (98-108); Potassium 3.1 mmol/L (3.3-5.1)
--- NOTE | 2025-04-21 16:11 | CHAPLAIN ---
Type of Pastoral Visit _x__ Initial Visit ___ Follow-up Visit ___ On-call Visit ___ General Patient Visit ___ Spiritual Assessment ___ Family Conference ___ Bereavement ___ Rapid Response ___ Code Blue ___ Other (describe below) Pastoral Care Referral From _x__ Patient ___ Family ___ Nurse ___ Physician ___ Network Pricing Consultant ___ Researcher ___ Other (describe below) Sacrament/Intervention ___ Active listening ___ Anointing ___ Quaker ___ Bereavement ___ Communion ___ Shayna exploration ___ ___ Life review _x__ Prayer ___ Reconciliation ___ Sacrament of Sick _x__ Supportive presence ___ Wedding ___ Other (describe below) Pastoral Comments patient is resting quietly but is able to talk and respond to questions; pt had a procedure/test earlier and is feeling tired; pt is offered supportive presence, conversation of needs, and prayer; pt says that a prayer would be nice; pt says thank you and does not indicate other concerns at this time; pt says that her boyfriend is taking care of things at home, but he has to work too;
--- NOTE | 2025-04-21 16:25 | CASEMGMT ---
SW Assessment: Face to Face with pt for initial transition planning/care coordination assessment. SW introduced self and role at [facility], pt voices understanding and consents to assessment. Pt is A&O x4 and answers all questions appropriately at this time. Care providers, pharmacy, and demographics verified/updated. PCP: [facility] Specialists: Endocrinology Preferred Pharmacy: [facility] Insurance: [employer] Dual Prescription Benefit: yes LNOK: Mom, Marci. Daughter born 12/2024. There is a 7 year old child that pt does not have custody of as well. Living Arrangements: Pt lives with SO and 4 month old daughter in an apartment with a full flight of steps to enter. Pt reports she is independent at baseline. Transportation: Pt drives self and denies concerns with transportation. DME: None HHC/SNF: None Pt reports that she may need SNF at d/c because she can't walk. Pt reports that she has been unable to walk or see for the past several days. Pt reports that her mother, Marci, is caring for infant dtr and will continue to do so until pt returns home. Marci does not work. Pt reports her SO, Alexi, is looking for a job, but is currently unemployed as well. Pt reports that she receives disability, SNAP, HEAP, and WIC and has no concerns regarding utility shot-off, paying rent, food scarcity, or transportation. Pt has no concerns regarding the living conditions of the home. Pt reports that she sees a counselor at [facility]. Pt reports that she does not have a psychiatrist or see anyone for psychotropic medication. Pt reports that her last appointment at [facility] was April 04, 2025. Pt reports that caring for the baby has been good and reports that Alexi helps and there are no issues. Pt denies PPD. Pt denies any concerns at this time. SW remains available to follow for d/c planning needs. TYRESE Marroquin
[2025-04-21 19:32] LABS: Anion Gap 12 (5-15); Carbon Dioxide 18.4 mmol/L (21.0-32.0); Chloride 106 mmol/L (98-108); Potassium 3.3 mmol/L (3.3-5.1)
[2025-04-21 23:33] LABS: Magnesium 1.2 mg/dL (1.5-2.2)
[2025-04-21 23:47] LABS: Anion Gap 14 (5-15); Carbon Dioxide 19.7 mmol/L (21.0-32.0); Chloride 100 mmol/L (98-108); Potassium 3.0 mmol/L (3.3-5.1)
[2025-04-22] VITALS (24 sets, daily range): BP systolic 108–163; BP diastolic 70–110; PULSE 106–132; RESP 16–29; TEMP 36.3–37; O2SAT 97–100; BMI 30.9
[2025-04-22] MEDS: Potassium Chloride 10mEq/100mL 10 MEQ/100 ML IV.SOLN. 100 MEQ IV BOLUS ×2 (00:02→01:23)
[2025-04-22] MEDS: Insulin Glargine-YFGN 100 UNIT/ML Pen SC (00:49)
[2025-04-22] MEDS: 0.9% Normal Saline (250mL Bag) 250 ML 15 ML IV (01:13)
[2025-04-22] MEDS: Potassium Phosphate 40 MM in 0.9% Normal Saline (500mL Bag) 500 ML 62.5 MM IV (01:13)
[2025-04-22 05:35] LABS: Magnesium 1.2 mg/dL (1.5-2.2)
[2025-04-22 05:48] LABS: Anion Gap 16 (5-15); BUN < 2 mg/dL (4-19); BUN/Creat Ratio UNABLE TO CALCULATE RATIO (10-20); Calcium,Total 7.4 mg/dL (7.6-11.0); Carbon Dioxide 19.4 mmol/L (21.0-32.0); Chloride 96 mmol/L (98-108); Glucose 210 mg/dL (70-99); Potassium 3.6 mmol/L (3.3-5.1)
[2025-04-22 06:52] LABS: Hematocrit 34.0 % (37-47); Hemoglobin 12.7 g/dL (12.0-15.0); Immature Granulocytes Count 0.050 X10^3/uL (0.0-0.0); Mean Corp Hgb Conc 37.4 g/dL (32-36); Mean Corpuscular Volume 76.4 fL (81-99); Mean Platelet Vol. 10.1 fl (6.2-12.0); NRBC Flagged by Analyzer 0 % (0-5); Platelet Count 180 K/mm3 (150-450); RBC Distribution Width CV 12.6 % (11.6-14.6); RBC Distribution Width SD 34.2 fl (35.1-43.9); Red Blood Count 4.45 M/mm3 (4.2-5.4); White Blood Count 9.8 K/mm3 (4.4-11.0)
--- NOTE | 2025-04-22 08:01 | PCM.PN.HOSP ---
Subjective Subjective Her anion gap was closed x 3 but is now open again to 16, restart IV fluids Objective Data Objective Data Vital Signs: Vital Signs Temp Pulse Resp BP Pulse Ox O2 Del Method FiO2 97.8 F 116 H 22 H 152/99 H 99 Room Air 30 04/22/25 07:00 04/22/25 07:00 04/22/25 07:00 04/22/25 07:00 04/22/25 07:31 04/22/25 07:31 04/22/25 05:00 Oxygen Delivery Method Room Air Weight: 167 lb 15.876 oz Body Mass Index (BMI) 30.9 Intake & Output: Intake and Output for Last 24 Hours 04/21/25 04/22/25 04/23/25 03:59 03:59 03:59 Intake Total 3988.62 / 3988.62 5313.40 / 5313.40 Output Total 470 / 560 2530 / 2530 2400 / 2400 Balance 3518.62 / 3428.62 2783.40 / 2783.40 -2400 / -2400 Lab / Micro Data 04/22/25 06:38 04/22/25 05:00 Labs: Laboratory Results - last 24 hr 04/21/25 07:59: POC Glucose 189 H 04/21/25 08:59: POC Glucose 194 H 04/21/25 10:01: POC Glucose 186 H 04/21/25 10:45: Sodium 139, Potassium 2.4 L*, Chloride 106, Carbon Dioxide 17.7 L, Anion Gap 16 H 04/21/25 11:04: POC Glucose 176 H 04/21/25 12:09: POC Glucose 191 H 04/21/25 12:59: POC Glucose 160 H 04/21/25 13:57: POC Glucose 123 H 04/21/25 15:00: Sodium 140, Potassium 3.1 L, Chloride 109 H, Carbon Dioxide 18.3 L, Anion Gap 13 04/21/25 15:02: POC Glucose 112 H 04/21/25 15:58: POC Glucose 103 04/21/25 16:57: POC Glucose 105 04/21/25 18:02: POC Glucose 114 H 04/21/25 18:59: POC Glucose 113 H 04/21/25 19:00: Sodium 136, Potassium 3.3, Chloride 106, Carbon Dioxide 18.4 L, Anion Gap 12 11/13/25 20:04: POC Glucose 120 H 04/21/25 21:08: POC Glucose 129 H 04/21/25 21:56: POC Glucose 149 H 04/21/25 22:21: POC Glucose 143 H 04/21/25 23:00: Sodium 134, Potassium 3.0 L, Chloride 100, Carbon Dioxide 19.7 L, Anion Gap 14, Phosphorus 2.1 L, Magnesium 1.2 L, POC Glucose 154 H 04/21/25 23:59: POC Glucose 151 H 04/22/25 01:01: POC Glucose 142 H 04/22/25 01:44: POC Glucose 188 H 04/22/25 05:00: WBC Cancelled, Corrected WBC Cancelled, RBC Cancelled, Hgb Cancelled, Hct Cancelled, MCV Cancelled, MCH Cancelled, MCHC Cancelled, RDW Std Deviation Cancelled, RDW Coeff of Linda Cancelled, Plt Count Cancelled, MPV Cancelled, Immature Gran % (Auto) Cancelled, Neut % (Auto) Cancelled, Lymph % (Auto) Cancelled, Gaston % (Auto) Cancelled, Eos % (Auto) Cancelled, Baso % (Auto) Cancelled, Absolute Neuts (auto) Cancelled, Absolute Lymphs (auto) Cancelled, Total Counted Cancelled, Neutrophils % (Manual) Cancelled, Band Neutrophils % Cancelled, Lymphocytes % (Manual) Cancelled, Monocytes % (Manual) Cancelled, Eosinophils % (Manual) Cancelled, Basophils % (Manual) Cancelled, Metamyelocytes % Cancelled, Myelocytes % Cancelled, Promyelocytes % Cancelled, Blast Cells % Cancelled, Plasma Cell % (Manual) Cancelled, Other Cells % Cancelled, Nucleated RBC % Cancelled, Nucleated RBCs/100 WBC Cancelled, Differential Comment Cancelled, Diff Path Review Cancelled, Hypersegmented Neuts Cancelled, Atypical Lymphocytes Cancelled, Reactive Lymphocytes Cancelled, Smudge Cells Cancelled, Toxic Granulation Cancelled, Toxic Vacuolation Cancelled, Dohle Bodies Cancelled, Diana Rods Cancelled, Platelet Estimate Cancelled, Plt Morphology Comment Cancelled, RBC Morphology Cancelled 04/22/25 05:00: RBC Morphology Cancelled, Polychromasia Cancelled, Hypochromasia Cancelled, Basophilic Stippling Cancelled, Anisocytosis Cancelled, Microcytosis Cancelled, Macrocytosis Cancelled, Spherocytes Cancelled, Sickle Cells Cancelled, Target Cells Cancelled, Tear Drop Cells Cancelled, Ovalocytes Cancelled, Stomatocytes Cancelled, [place] Bodies Cancelled, [place] Cells Cancelled, Bite Cells Cancelled, Crenated Cell Cancelled, Acanthocytes (Spur) Cancelled, Rouleaux Cancelled, Schistocytes Cancelled, Sodium 131 L, Potassium 3.6, Chloride 96 L, Carbon Dioxide 19.4 L, Anion Gap 16 H, BUN < 2 L, Creatinine 0.31 L, Estim Creat Clear Calc 251.43 H, Est GFR (MDRD) Non-Af 145, BUN/Creatinine Ratio UNABLE TO CALCULATE L, Glucose 210 H, Calcium 7.4 L, Phosphorus 2.8, Magnesium 1.2 L 04/22/25 06:28: POC Glucose 213 H 04/22/25 06:38: WBC 9.8, RBC 4.45, Hgb 12.7, Hct 34.0 L, MCV 76.4 L, MCH 28.5, MCHC 37.4 H, RDW Std Deviation 34.2 L, RDW Coeff of Linda 12.6, Plt Count 180, MPV 10.1, Immature Gran % (Auto) 0.500, Neut % (Auto) 78.0 H, Lymph % (Auto) 17.0 L, Gaston % (Auto) 4.0, Eos % (Auto) 0.2, Baso % (Auto) 0.3, Absolute Neuts (auto) 7.6, Absolute Lymphs (auto) 1.67, Nucleated RBC % 0 Radiography Diagnostic Testing: Radiology Impression Brain CT 04/21/25 13:53 IMPRESSION: NORMAL NONCONTRAST HEAD CT. Reading Location: [facility] Physical Exam Narrative General: Alert, Oriented x3, Cooperative, No apparent distress HEENT: Atraumatic, PERRLA, EOMI, Normocephalic Oral: Dry mucosa, thrush Neck: Supple, No JVD Lungs: Clear to auscultation, Normal air movement, No rhonchi, No wheeze, No rales Cardiovascular: Regular rate, Regular Rhythm, Normal S1, Normal S2, No murmurs Abdomen: Soft, Non Tender, Non-Distended, No Hepato-splenomegaly Extremities: No edema, Capillary Refill Less than 3 Seconds Skin: No rashes, No breakdown Musculoskeletal: No Tenderness to Palpation of Joints or Extremities Neurological: No focal neurological deficits, moves all extremities Psych/Mental Status: Flat Assessment & Plan Assessment/Plan (1) Diabetic ketoacidosis: PLAN: Plan 1. DKA instigated by UTI/thrush ? Continue with Rocephin unfortunately urine cultures were never obtained or sent, therefore we will treat empirically for 5 days and then discontinue antibiotics ? Continue with the DKA protocol ? Appreciate printed circuit boards stripper etcher assistance ? She still has an anion gap, will increase Lantus to 10 units daily and increase her sliding scale to high medium dosing ? Continue with nystatin swish and swallow 2. Anxiety/depression/bipolar ? Stable ? Continue with her home medications 3. GERD ? Stable ? Continue with PPI DVT: Lovenox Charges/Coding Visit Charges Inpatient E&M: 78323 Subs Hosp L2
[2025-04-22 08:22] LABS: Ferritin 1077 ng/mL (22-378); Iron 122 ug/dL (50-170); Iron Binding Capacity,Unsat 51 ug/dL (228-428)
[2025-04-22] MEDS: 0.9% Normal Saline (1000mL) 1,000 ML 100 ML IV ×2 (08:33→18:29)
[2025-04-22] MEDS: Magnesium Sulfate 4gm/100mL 4 GM/100 ML IV.SOLN. IV (10:28)
[2025-04-22] MEDS: Insulin Glargine-YFGN 100 UNIT/ML Pen 10 UNIT SC ×2 (10:36→22:18)
[2025-04-22] MEDS: NYSTATIN 500,000 UNIT/5 ML UDC 500000 UNIT PO ×3 (10:36→22:19)
--- NOTE | 2025-04-22 12:51 | CASEMGMT ---
Social Work- SW met with pt and pt SO to check-in and offer support. Pt is awaiting therapy evals, but was unable to stand with bedside nurse. Pt reports that her vision difficulties come and go. Pt report that she has not been managing her medication well at home. SW inquired into if pt would be agreeable to CCN or [facility] Home assistance. Pt SO feels that is a good idea; pt also agreeable. Pt SO reports no concerns at home with infant or pt. SW remains available to follow. TYRESE Marroquin
[2025-04-22 13:05] LABS: Anion Gap 16 (5-15); BUN 4 mg/dL (4-19); BUN/Creat Ratio 11.5 RATIO (10-20); Calcium,Total 7.4 mg/dL (7.6-11.0); Carbon Dioxide 19.9 mmol/L (21.0-32.0); Chloride 97 mmol/L (98-108); Estimated Creatinine Clearance 253.61 ml/min (50-250); Glucose 260 mg/dL (70-99); Potassium 4.2 mmol/L (3.3-5.1)
[2025-04-22 13:47] LABS: Iron Binding Capacity,Total 173 ug/dL (250-450)
--- NOTE | 2025-04-22 15:15 | CASEMGMT ---
Discharge Planning A list of?SNF providers including quality and resource use data and consistent with the patient's preferred geographic region, medical needs, and insurance network was created in CarePort Guide.? This list was provided to the SW. Krystal An, Discharge Planning Ass
[2025-04-23] VITALS (14 sets, daily range): BP systolic 119–161; BP diastolic 73–112; PULSE 101–122; RESP 16–21; TEMP 36.1–36.8; O2SAT 98–100; BMI 30.9
[2025-04-23] MEDS: 0.9% Normal Saline (1000mL) 1,000 ML 100 ML IV (04:53)
[2025-04-23 06:38] LABS: Hematocrit 32.7 % (37-47); Hemoglobin 12.1 g/dL (12.0-15.0); Immature Granulocytes Count 0.030 X10^3/uL (0.0-0.0); Mean Corp Hgb Conc 37.0 g/dL (32-36); Mean Corpuscular Volume 76.9 fL (81-99); Mean Platelet Vol. 9.8 fl (6.2-12.0); NRBC Flagged by Analyzer 0 % (0-5); Platelet Count 166 K/mm3 (150-450); RBC Distribution Width CV 12.4 % (11.6-14.6); RBC Distribution Width SD 33.8 fl (35.1-43.9); Red Blood Count 4.25 M/mm3 (4.2-5.4); White Blood Count 5.8 K/mm3 (4.4-11.0)
[2025-04-23 07:20] LABS: Anion Gap 12 (5-15); BUN < 2 mg/dL (4-19); BUN/Creat Ratio UNABLE TO CALCULATE RATIO (10-20); Calcium,Total 8.0 mg/dL (7.6-11.0); Carbon Dioxide 25.0 mmol/L (21.0-32.0); Chloride 98 mmol/L (98-108); Glucose 137 mg/dL (70-99); Magnesium 2.0 mg/dL (1.5-2.2); Potassium 3.0 mmol/L (3.3-5.1)
--- NOTE | 2025-04-23 07:51 | PN.HOSP_ITS ---
Subjective Subjective Gap closed again to 12, will increase IV fluids as she is a little bit tachycardic and dehydrated. She is having very poor p.o. intake because of swallowing anxiety and she was complaining of vision changes that appear to have a nonorganic cause Objective Data Objective Data Vital Signs: Vital Signs Temp Pulse Resp BP Pulse Ox O2 Del Method FiO2 97.7 F L 120 H 20 H 137/87 H 99 Room Air 30 04/23/25 07:00 04/23/25 07:48 04/23/25 07:00 04/23/25 07:00 04/23/25 07:00 04/23/25 07:00 04/22/25 05:00 Oxygen Delivery Method Room Air Weight: 167 lb 15.876 oz Body Mass Index (BMI) 30.9 Intake & Output: Intake and Output for Last 24 Hours 04/22/25 04/23/25 04/24/25 03:59 03:59 03:59 Intake Total 5313.40 / 5313.40 1769.4133 / 1769.4133 1000 / 1000 Output Total 2530 / 2530 4800 / 4800 300 / 300 Balance 2783.40 / 2783.40 -3030.5867 / -3030.5867 700 / 700 Lab / Micro Data 04/23/25 06:25 04/23/25 06:25 Labs: Laboratory Results - last 24 hr 04/22/25 05:00: Iron 122, TIBC 173 L, Iron Saturation 70.5 H, Unsaturated IBC 51 L, Ferritin 1077 H 04/22/25 11:56: POC Glucose 265 H 04/22/25 12:20: Sodium 133, Potassium 4.2, Chloride 97 L, Carbon Dioxide 19.9 L, Anion Gap 16 H, BUN 4, Creatinine 0.31 L, Estim Creat Clear Calc 253.61 H, Est GFR (MDRD) Non-Af 145, BUN/Creatinine Ratio 11.5, Glucose 260 H, Calcium 7.4 L 04/22/25 16:54: POC Glucose 198 H 04/22/25 22:15: POC Glucose 172 H 04/23/25 06:06: POC Glucose 141 H 04/23/25 06:25: WBC 5.8, RBC 4.25, Hgb 12.1, Hct 32.7 L, MCV 76.9 L, MCH 28.5, M CHC 37.0 H, RDW Std Deviation 33.8 L, RDW Coeff of Linda 12.4, Plt Count 166, MPV 9.8, Immature Gran % (Auto) 0.500, Neut % (Auto) 55.0, Lymph % (Auto) 39.1, Dewitt % (Auto) 3.8, Eos % (Auto) 0.9, Baso % (Auto) 0.7, Absolute Neuts (auto) 3.2, Absolute Lymphs (auto) 2.27, Nucleated RBC % 0, Sodium 135, Potassium 3.0 L, Chloride 98, Carbon Dioxide 25.0, Anion Gap 12, BUN < 2 L, Creatinine 0.25 L, E stim Creat Clear Calc 314.47 H, Est GFR (MDRD) Non-Af 153, BUN/Creatinine Ratio UNABLE TO CALCULATE L, Glucose 137 H, Calcium 8.0, Phosphorus 2.9, Magnesium 2.0 Physical Exam Narrative General: Alert, Oriented x3, Cooperative, No apparent distress HEENT: Atraumatic, PERRLA, EOMI, Normocephalic Oral: Dry mucosa, thrush Neck: Supple, No JVD Lungs: Clear to auscultation, Normal air movement, No rhonchi, No wheeze, No rales Cardiovascular: Regular rate, Regular Rhythm, Normal S1, Normal S2, No murmurs Abdomen: Soft, Non Tender, Non-Distended, No Hepato-splenomegaly Extremities: No edema, Capillary Refill Less than 3 Seconds Skin: No rashes, No breakdown Musculoskeletal: No Tenderness to Palpation of Joints or Extremities Neurological: No focal neurological deficits, moves all extremities Psych/Mental Status: Flat Assessment & Plan Assessment/Plan (1) Diabetic ketoacidosis: PLAN: Plan 1. DKA instigated by UTI/thrush ? Continue with Rocephin unfortunately urine cultures were never obtained or sent, therefore we will treat empirically for 5 days and then discontinue antibiotics ? Continue with the DKA protocol ? Will continue to monitor and make insulin adjustments ? Her gap is now closed can transfer out of the unit ? Continue with nystatin swish and swallow 2. Anxiety/depression/bipolar ? Stable ? Continue with her home medications 3. GERD ? Stable ? Continue with PPI 4. Vision problems ? Difficult to clarify does appear to be a nonorganic cause ? CT of the brain was negative DVT: Lovenox Charges/Coding Visit Charges Inpatient E&M: 02784 Subs Hosp L2
[2025-04-23] MEDS: Potassium Chloride 10mEq/100mL 10 MEQ/100 ML IV.SOLN. 100 MEQ IV BOLUS ×4 (08:18→12:10)
--- NOTE | 2025-04-23 08:47 | NURSING ---
pt in bed and called out saying something is wrong. pt unable to ellaborate. sitting up in bed with no change of vitas after nurse just did assessment on. pt aware that will be taking medications today and that was what possibly was wrong. pt had refused all po psych meds previous shift. hr 120's this am. krider running now.
[2025-04-23] MEDS: NYSTATIN 500,000 UNIT/5 ML UDC 500000 UNIT PO ×2 (08:56→13:28)
[2025-04-23] MEDS: Insulin Glargine-YFGN 100 UNIT/ML Pen 10 UNIT SC (09:41)
--- NOTE | 2025-04-23 11:40 | CASEMGMT ---
Addendum entered by Stefanie Trujillo 04/23/25 12:45: Social Work Initial referrals sent to [facility] and [facility]. SW will continue to follow. CAPRI Andrade Original Note: Social Work SW met w/pt, provided pt w/custodial facility list from [facility]. Pt is not able to see well, SW reviewed the list w/pt. She is agreeable to SNF, and would like to stay in [place] if possible. She would like SW to make referrals in order of their ratings. The pt's choices are 1. [facility]. [facility] 3. [facility] and 4. [facility]. SW explained will start with referrals to [facility] and [facility], and go from there. SW also did explore w/pt if she feels safe at home, if there are any concerns around her safety. Pt denies any concerns around safety at home. SW will make referrals later today to [facility] and [facility]. CAPRI Andrade
[2025-04-23] MEDS: 0.9% Normal Saline (1000mL) 1,000 ML 150 ML IV ×2 (15:50→22:23)
[2025-04-24 02:48] VITALS: BMI 28.8
[2025-04-24 04:30] VITALS: BP 163/76; PULSE 101; RESP 16; TEMP 35.9; O2SAT 95
[2025-04-24 04:44] LABS: Hematocrit 38.9 % (37-47); Hemoglobin 13.8 g/dL (12.0-15.0); Immature Granulocytes Count 0.040 X10^3/uL (0.0-0.0); Mean Corp Hgb Conc 35.5 g/dL (32-36); Mean Corpuscular Volume 79.6 fL (81-99); Mean Platelet Vol. 10.2 fl (6.2-12.0); NRBC Flagged by Analyzer 0 % (0-5); Platelet Count 209 K/mm3 (150-450); RBC Distribution Width CV 12.3 % (11.6-14.6); RBC Distribution Width SD 34.9 fl (35.1-43.9); Red Blood Count 4.89 M/mm3 (4.2-5.4); White Blood Count 5.4 K/mm3 (4.4-11.0)
[2025-04-24] MEDS: 0.9% Normal Saline (1000mL) 1,000 ML 150 ML IV (05:18)
[2025-04-24 05:52] LABS: Anion Gap 13 (5-15); Calcium,Total 9.1 mg/dL (7.6-11.0); Carbon Dioxide 25.1 mmol/L (21.0-32.0); Chloride 96 mmol/L (98-108); Glucose 135 mg/dL (70-99); Potassium 3.8 mmol/L (3.3-5.1)
[2025-04-24 06:00] LABS: BUN < 2 mg/dL (4-19); BUN/Creat Ratio UNABLE TO CALCULATE RATIO (10-20)
[2025-04-24 07:06] VITALS: O2SAT 95
[2025-04-24 09:06] VITALS: BP 140/94; PULSE 121; RESP 16; TEMP 36.5; O2SAT 99
[2025-04-24] MEDS: Insulin Glargine-YFGN 100 UNIT/ML Pen 10 UNIT SC ×2 (09:09→21:57)
--- NOTE | 2025-04-24 09:22 | PN.HOSP_ITS ---
Subjective Subjective No issues overnight Objective Data Objective Data Vital Signs: Vital Signs Temp Pulse Resp BP Pulse Ox O2 Del Method FiO2 97.7 F L 121 H 16 140/94 H 99 Room Air 30 04/24/25 09:06 04/24/25 09:06 04/24/25 09:06 04/24/25 09:06 04/24/25 09:06 04/24/25 09:06 04/22/25 05:00 Oxygen Delivery Method Room Air Weight: 156 lb 11.979 oz Body Mass Index (BMI) 28.8 Intake & Output: Intake and Output for Last 24 Hours 04/23/25 04/24/25 04/25/25 03:59 03:59 03:59 Intake Total 1769.4133 / 1769.4133 4322.5 / 4322.5 1000 / 1000 Output Total 4800 / 4800 2450 / 2450 1400 / 1400 Balance -3030.5867 / -3030.5867 1872.5 / 1872.5 -400 / -400 Lab / Micro Data 04/24/25 04:10 04/24/25 04:10 Labs: Laboratory Results - last 24 hr 04/23/25 09:40: POC Glucose 220 H 04/23/25 11:27: POC Glucose 176 H 04/23/25 15:53: POC Glucose 138 H 04/23/25 21:38: POC Glucose 118 H 04/24/25 04:10: WBC 5.4, RBC 4.89, Hgb 13.8, Hct 38.9, MCV 79.6 L, MCH 28.2, MCHC 35.5, RDW Std Deviation 34.9 L, RDW Coeff of Linda 12.3, Plt Count 209, MPV 10.2, Immature Gran % (Auto) 0.700, Neut % (Auto) 35.1 L, Lymph % (Auto) 58.5 H, [place] % (Auto) 3.9, Eos % (Auto) 0.9, Baso % (Auto) 0.9, Absolute Neuts (auto) 1.9 L, Absolute Lymphs (auto) 3.18, Nucleated RBC % 0, Sodium 134, Potassium 3.8, Chloride 96 L, Carbon Dioxide 25.1, Anion Gap 13, BUN < 2 L, Creatinine 0.32 L, Estim Creat Clear Calc 237.40, Est GFR (MDRD) Non-Af 145, BUN/Creatinine Ratio UNABLE TO CALCULATE L, Glucose 135 H, Calcium 9.1 04/24/25 07:12: POC Glucose 173 H Micro: Microbiology 04/20/25 20:00 Blood Culture (Wb) - Anticubital Left Blood Culture - Preliminary No growth in 48 hours. 04/20/25 19:41 Blood Culture (Wb) - Anticubital Left Blood Culture - Preliminary No growth in 48 hours. Physical Exam Narrative General: Alert, Oriented x3, Cooperative, No apparent distress HEENT: Atraumatic, PERRLA, EOMI, Normocephalic Oral: Moist mucosa Neck: Supple, No JVD Lungs: Clear to auscultation, Normal air movement, No rhonchi, No wheeze, No rales Cardiovascular: Regular rate, Regular Rhythm, Normal S1, Normal S2, No murmurs Abdomen: Soft, Non Tender, Non-Distended, No Hepato-splenomegaly Extremities: No edema, Capillary Refill Less than 3 Seconds Skin: No rashes, No breakdown Musculoskeletal: No Tenderness to Palpation of Joints or Extremities Neurological: No focal neurological deficits, moves all extremities Psych/Mental Status: Flat Assessment & Plan Assessment/Plan (1) Diabetic ketoacidosis: PLAN: Plan 1. DKA instigated by UTI/thrush ? Continue with Rocephin for 5 days and then discontinue antibiotics ? Continue with the DKA protocol ? Will continue to monitor and make insulin adjustments ? Continue with nystatin swish and swallow 2. Anxiety/depression/bipolar ? Stable ? Continue with her home medications 3. GERD ? Stable ? Continue with PPI 4. Vision problems ? Difficult to clarify does appear to be a nonorganic cause ? CT of the brain was negative DVT: Lovenox Charges/Coding Visit Charges Inpatient E&M: 01765 Subs Hosp L2
[2025-04-24] MEDS: 0.9% Normal Saline (1000mL) 1,000 ML 100 ML IV ×2 (11:48→22:06)
[2025-04-24] MEDS: NYSTATIN 500,000 UNIT/5 ML UDC 500000 UNIT PO (13:58)
[2025-04-24 16:13] VITALS: BP 128/92; PULSE 109; RESP 16; TEMP 36.6; O2SAT 98
[2025-04-24 21:52] VITALS: BP 145/105; PULSE 113; RESP 18; TEMP 35.9; O2SAT 99
[2025-04-25 03:56] VITALS: BP 145/100; PULSE 109; RESP 18; TEMP 36.6; O2SAT 99
[2025-04-25 05:49] VITALS: BMI 28.8
[2025-04-25 07:27] LABS: Anion Gap 15 (5-15); BUN 3 mg/dL (4-19); BUN/Creat Ratio 9.0 RATIO (10-20); Calcium,Total 9.1 mg/dL (7.6-11.0); Carbon Dioxide 22.5 mmol/L (21.0-32.0); Chloride 99 mmol/L (98-108); Estimated Creatinine Clearance 216.91 ml/min (50-250); Glucose 189 mg/dL (70-99); Potassium 3.4 mmol/L (3.3-5.1)
[2025-04-25 08:13] VITALS: BP 149/97; PULSE 114; RESP 16; TEMP 36.4; O2SAT 98
[2025-04-25] MEDS: Insulin Glargine-YFGN 100 UNIT/ML Pen 10 UNIT SC ×2 (08:20→23:00)
[2025-04-25] MEDS: 0.9% Normal Saline (1000mL) 1,000 ML 100 ML IV ×2 (08:23→18:30)
--- NOTE | 2025-04-25 09:40 | CASEMGMT ---
Addendum entered by Krystal An 04/25/25 15:02: [facility] has not responded to referral. Pt wishes to proceed with [facility]. [facility] asked to cancel referral. Krystal An DC Planning Asst. Addendum entered by Krystal An 04/25/25 11:49: [facility] has declined. updated. Krystal An DC Planning Asst. Original Note: Discharge Planning Updates sent via [facility]Port to [facility] and [facility]. [facility] is reviewing, [facility] hasn't viewed referral yet. Krystal An DC Planning Asst.
--- NOTE | 2025-04-25 11:04 | PCM.PN.HOSP ---
Subjective Subjective No issues overnight, doing well Objective Data Objective Data Vital Signs: Vital Signs Temp Pulse Resp BP Pulse Ox O2 Del Method FiO2 97.5 F L 114 H 16 149/97 H 98 Room Air 30 04/25/25 08:13 04/25/25 08:13 04/25/25 08:13 04/25/25 08:13 04/25/25 08:13 04/25/25 08:13 04/22/25 05:00 Oxygen Delivery Method Room Air Weight: 156 lb 8.451 oz Body Mass Index (BMI) 28.8 Intake & Output: Intake and Output for Last 24 Hours 04/24/25 04/25/25 04/26/25 03:59 03:59 03:59 Intake Total 4322.5 / 4322.5 3773.33 / 3773.33 1000 / 1000 Output Total 2450 / 2450 3950 / 3950 650 / 650 Balance 1872.5 / 1872.5 -176.67 / -176.67 350 / 350 Lab / Micro Data 04/24/25 04:10 04/25/25 06:07 Labs: Laboratory Results - last 24 hr 04/24/25 11:47: POC Glucose 219 H 04/24/25 16:19: POC Glucose 105 04/24/25 21:56: POC Glucose 185 H 04/25/25 06:07: Sodium 136, Potassium 3.4, Chloride 99, Carbon Dioxide 22.5, Anion Gap 15, BUN 3 L, Creatinine 0.35 L, Estim Creat Clear Calc 216.91, Est GFR (MDRD) Non-Af 141, BUN/Creatinine Ratio 9.0 L, Glucose 189 H, Calcium 9.1 04/25/25 08:18: POC Glucose 189 H Micro: Microbiology 04/20/25 20:00 Blood Culture (Wb) - Anticubital Left Blood Culture - Preliminary No growth in 48 hours. 04/20/25 19:41 Blood Culture (Wb) - Anticubital Left Blood Culture - Preliminary No growth in 48 hours. Physical Exam Narrative General: Alert, Oriented x3, Cooperative, No apparent distress HEENT: Atraumatic, PERRLA, EOMI, Normocephalic Oral: Moist mucosa Neck: Supple, No JVD Lungs: Clear to auscultation, Normal air movement, No rhonchi, No wheeze, No rales Cardiovascular: Regular rate, Regular Rhythm, Normal S1, Normal S2, No murmurs Abdomen: Soft, Non Tender, Non-Distended, No Hepato-splenomegaly Extremities: No edema, Capillary Refill Less than 3 Seconds Skin: No rashes, No breakdown Musculoskeletal: No Tenderness to Palpation of Joints or Extremities Neurological: No focal neurological deficits, moves all extremities Psych/Mental Status: Flat Assessment & Plan Assessment/Plan (1) Diabetic ketoacidosis: PLAN: Plan 1. DKA instigated by UTI/thrush ? Continue with Rocephin for 5 days and then discontinue antibiotics ? Continue with the DKA protocol ? Will continue to monitor and make insulin adjustments ? Continue with nystatin swish and swallow ? PT/OT, pending placement 2. Anxiety/depression/bipolar ? Stable ? Continue with her home medications 3. GERD ? Stable ? Continue with PPI 4. Vision problems ? Difficult to clarify does appear to be a nonorganic cause ? CT of the brain was negative DVT: Lovenox Charges/Coding Visit Charges Inpatient E&M: 61523 Subs Hosp L2
--- NOTE | 2025-04-25 12:54 | CASEMGMT ---
Addendum entered by Krystal An 04/25/25 15:01: [facility] has accepted and pt wishes to proceed. [facility] asked to submit for precert. SW updated. Krystal An DC Planning Asst. Original Note: Discharge Planning Referral sent via CarePort to [facility]. Krystal An DC Planning Asst.
--- NOTE | 2025-04-25 13:26 | CASEMGMT ---
Social Work A consult for the crisis center has been submitted. JENNIFER Sears
--- NOTE | 2025-04-25 14:20 | CASEMGMT ---
Social Work SW spoke with the patient and her boyfriend. The patient reported she [facility]. The boyfriend reported they have [facility] services in the home. They reported no other services. JENNIFER Sears
--- NOTE | 2025-04-25 14:47 | CASEMGMT ---
Social Work Crisis Center counselor meet with the patient and reported no current suicidal concerns. There is a safety plan in the patient chart. JENNIFER Sears
[2025-04-25 16:00] VITALS: BP 137/95; PULSE 118; RESP 16; TEMP 36.8; O2SAT 98
--- NOTE | 2025-04-25 16:21 | CASEMGMT ---
[facility] has obtained auth to admit. Krystal An DC Planning Asst.
--- NOTE | 2025-04-25 16:26 | CASEMGMT ---
Social Work SW informed the patient she has been approved to DC to [facility] and will DC tomorrow. JENNIFER Sears
[2025-04-25 19:00] VITALS: PULSE 109
[2025-04-25 22:58] VITALS: BP 145/96; PULSE 113; RESP 16; TEMP 36.7; O2SAT 100
[2025-04-25] MEDS: NYSTATIN 500,000 UNIT/5 ML UDC 500000 UNIT PO (23:00)
[2025-04-25] MEDS: 0.9% Saline Lock 10 ML Syringe IV (23:05)
[2025-04-26 03:00] VITALS: PULSE 113
[2025-04-26 03:46] VITALS: BMI 27.6
[2025-04-26] MEDS: 0.9% Normal Saline (1000mL) 1,000 ML 50 ML IV (04:23)
[2025-04-26 04:25] VITALS: BP 151/104; PULSE 103; RESP 17; TEMP 36.4; O2SAT 99
[2025-04-26 08:05] VITALS: BP 140/105; PULSE 99; RESP 16; TEMP 36.5; O2SAT 99
--- NOTE | 2025-04-26 09:33 | CASEMGMT ---
Social Work SW spoke with the patient and reminded her that she has been approved to DC to [facility] and that she will DC today. SW called the mother and informed her of this information. The physician knows the patient is approved. SW informed the nurse. JENNIFER Sears
--- NOTE | 2025-04-26 10:02 | PCM.TXEXTCAR ---
Diet Diet Order/Speech Therapy: INPATIENT Hospital Diet / Speech Therapy Order(s) 04/25/25 10:08 Diet: Carbohydrate Controlled Food consistency:: Pureed Liquid Consistency:: Regular/Thin Speech Therapy Comments: Meds crushed in applesauce; sit upright 30-60min after meals 1500 calories Routine Orders/Code Status Routine Lab Work: CBC and BMP Code Status: Full Code DC O2, CPAP, BIPAP needs Home O2 Discharge instructions: No Therapies Physical Therapy: Eval and Treat Occupational Therapy: Eval and Treat Problem/Diagnosis (1) Diabetic ketoacidosis: Status: Acute Code(s): E11.10 - Type 2 diabetes mellitus with ketoacidosis 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 Plan 1. DKA instigated by UTI/thrush ? Continue with Rocephin for 5 days and then discontinue antibiotics ? Continue with the DKA protocol ? Will continue to monitor and make insulin adjustments ? Continue with nystatin swish and swallow ? PT/OT, pending placement 2. Anxiety/depression/bipolar ? Stable ? Continue with her home medications 3. GERD ? Stable ? Continue with PPI 4. Vision problems ? Difficult to clarify does appear to be a nonorganic cause ? CT of the brain was negative DVT: Lovenox Allergies/Procedures Done in Hospital Allergies aripiprazole (From Abilify) Adverse Reaction (Verified 04/20/25 16:55) Other Suicidal Ideation metoclopramide (From Reglan) Adverse Reaction (Verified 04/20/25 16:55) Other Heart palpitations ondansetron (From Zofran) Adverse Reaction (Verified 04/20/25 16:55) Vomiting quetiapine (From Seroquel) Adverse Reaction (Verified 04/20/25 16:55) Other Lethargy sertraline (From Zoloft) Adverse Reaction (Verified 04/20/25 16:55) Other Suicidal Ideation Type of Care/Length of Stay Estimated LOS: Convalescent Care Less Than 30 days Type of Care Needed: Skilled Rehab Potential: Good Prognosis: Good Additional Orders/Day of Discharge Day of Discharge: 04/26/25 Dietary and Speech Recommendations Dietitian Recommendations/Changes: Adjust to consistent carbohydrate diet per INVESTMENTS MANAGER recommendations. Will monitor weight trends. Discharge Plan Admission Admit Date/Time: 04/20/25 22:09 Attending Provider: Regulo Starks Primary Care Provider: Jamari Byrne Consulting Providers: Ariadne Hobbs Discharge Orders/Prescriptions Prescriptions: New insulin glargine-yfgn 100 unit/mL (3 mL) Insulin Pen 10 unit subcut BID Qty: 0 0RF insulin lispro [Humalog KwikPen Insulin] 100 unit/mL Insulin Pen 5 unit subcut TIDAC Qty: 0 0RF Continued fluoxetine 20 mg capsule 20 mg PO DAILY glipizide 5 mg tablet 5 mg PO BID metformin 500 mg tablet 500 mg PO BID Referrals / Follow Up: Jamari Byrne MD [Primary Care Provider, Family Practice] Disposition Disposition (needs filled in before D/C Order can be placed): [facility]
[2025-04-26] MEDS: Insulin Glargine-YFGN 100 UNIT/ML Pen 10 UNIT SC (10:31)
[2025-04-26] MEDS: NYSTATIN 500,000 UNIT/5 ML UDC 500000 UNIT PO (10:31)
--- NOTE | 2025-04-26 10:49 | PHA.DC_ITS ---
Pharmacy [place] Med Reconciliation Pharmacy Service has performed discharge medication reconciliation for this patient. The patient's discharge medication list was reviewed for discrepancies and discrepancies were resolved. Medications at Discharge Home Medications fluoxetine 20 mg capsule 20 mg PO DAILY anxiety 11/15/24 glipizide 5 mg tablet 5 mg PO BID dm 04/20/25 metformin 500 mg tablet 500 mg PO BID dm 04/20/25 insulin glargine-yfgn 100 unit/mL (3 mL) subcutaneous pen 10 unit (0.1 mL) martinez bcut BID #0 mL 04/26/25 insulin lispro 100 unit/mL subcutaneous pen (Humalog KwikPen (U-100) Insulin) 5 unit (0.05 mL) subcut TIDAC #0 mL 04/26/25
--- NOTE | 2025-04-26 11:00 | CASEMGMT ---
Discharge Planning Discharge orders, signed med list, and transport time sent via [facility] to [facility]. Physicians will transport pt by wheelchair at 12:30p. Nursing, SW, pt, her sig-other, and her mother updated. Krystal An DC Planning Asst.
--- NOTE | 2025-04-26 11:45 | NURSING ---
report called to AYE Camp at [facility]
--- NOTE | 2025-04-26 11:45 | CASEMGMT ---
Social Work SW spoke with the patient. Patient reported she receives social security for her mental health. Patient reported she is not legal blind. She reported she can read a little bit with her glasses. Patient reported she graduated high school and she had an IEP in high school. JENNIFER Sears
--- NOTE | 2025-04-26 12:50 | PCM.DC.SUM ---
Providers Date of Admission: 04/20/25 Primary Care Physician: Dr. Jamari Byrne MD Consultations 04/21/25 00:09 Consult: Grade Foreman / Pulmonary Medicine Routine Consulting Provider: Intensivists/Pulmonary Med Reason for Consult: DKA, UTI EMERGENT Consult: No MD Notified: Yes Date Notified: 04/21/25 Time Notified: 05:23 Method of Notification: Text Reason For Visit: DKA, UTI Diagnosis Discharge Diagnosis (1) Diabetic ketoacidosis: Status: Acute Code(s): E11.10 - Type 2 diabetes mellitus with ketoacidosis 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 Medications at Discharge Home Medications fluoxetine 20 mg capsule 20 mg PO DAILY anxiety 11/15/24 glipizide 5 mg tablet 5 mg PO BID dm 04/20/25 metformin 500 mg tablet 500 mg PO BID dm 04/20/25 insulin glargine-yfgn 100 unit/mL (3 mL) subcutaneous pen 10 unit (0.1 mL) subcut BID #0 mL 04/26/25 insulin lispro 100 unit/mL subcutaneous pen (Humalog KwikPen (U-100) Insulin) 5 unit (0.05 mL) subcut TIDAC #0 mL 04/26/25 Hospital Course Operations None Procedures None Summary of Care Provided Minutes Spent on Discharge: 36 Hospital Course: Per HPI: The patient is a 30 y/o F w/ PMHx: Former tobacco use, Asthma, IDDM, Anxiety and Depression/Bipolar disorder, GERD who presents to the [facility] ED on 04/20/25 with onset significant nausea and emesis over the last week worse over the last 24 to 40 hours with increasing fatigue and malaise with dehydrated sensation given GI losses and inability to maintain appropriate oral intake with no recent fevers or chills nor any URI type symptoms on metformin only but unable to take it recently secondary to her GI losses. Patient does report increased urinary frequency. Workup in the ED included T98.4, heart 133, BP 112/68, respiratory rate 20, 100% on room air with most recent repeat vitals T94.3 Rectal, heart rate 101, BP 151/76, respiratory rate 26, 100% room air, CBC with WBC 23.5, hemoglobin 17.2, MCV 78.8, platelet 306 with left shift, ABG with pH 7.01, bicarb 102, pCO2 7.7, pO2 140, CMP with sodium 128, chloride 90, carbon oxide 5.3, anion gap 33, glucose 309, lactic acid 6.3, hepatic profile with AST/LT 35/312, serum testing negative, lipase 26, beta hydroxybutyrate acid pending upon evaluation, urinalysis with turbid appearing urine, specific remedy elevated 1.025, protein 100, glucose thousand, ketone 150, occult blood 50, leukocyte esterase 100, negative nitrate, urine WBCs greater than 104+ urine bacteria, blood culture x 2 pending per ED, urine culture pending per ED. In the ED patient initiated on 2 L normal saline bolus as well as insulin drip as well as IV Rocephin. Mag and Phos ordered stat per ED and pending upon evaluation. Hospital Course: 1. DKA instigated by UTI/thrush?30-year-old female presented to the hospital in DKA. She tolerated the DKA protocol and was able to be transferred out of the ICU after 2 days. Was evaluated by physical therapy and Occupational Therapy who recommended placement due to significant weakness. She was started on insulin that will need to be continued at the prison of Lantus 10 units twice daily as well as Humalog 5 units 3 times daily with meals. Will continue with her metformin and her glipizide on discharge as well. She was on nystatin swish and swallow but she did complete IV antibiotics therefore we will discontinue the nystatin on discharge as well. I discussed with her the plan for discharge she expressed understanding of the risks and benefits of going to the prison and would like to go. 2. Anxiety, depression, bipolar, GERD are chronic medical conditions which complicate her care. Her home medications were continued where appropriate. Physical Exam Narrative General: Alert, Oriented x3, Cooperative, No apparent distress HEENT: Atraumatic, PERRLA, EOMI, Normocephalic Oral: Moist mucosa Neck: Supple, No JVD Lungs: Clear to auscultation, Normal air movement, No rhonchi, No wheeze, No rales Cardiovascular: Regular rate, Regular Rhythm, Normal S1, Normal S2, No murmurs Abdomen: Soft, Non Tender, Non-Distended, No Hepato-splenomegaly Extremities: No edema, Capillary Refill Less than 3 Seconds Skin: No rashes, No breakdown Musculoskeletal: No Tenderness to Palpation of Joints or Extremities Neurological: No focal neurological deficits, moves all extremities Psych/Mental Status: Flat Weight / BMI Weight Weight: 151 lb 0.266 oz Body Mass Index (BMI) 27.6 ABG / Lab / Microbiology Data 04/24/25 04:10 04/25/25 06:07 Laboratory: Laboratory Results - last 24 hr 04/25/25 16:51: POC Glucose 230 H 04/25/25 22:59: POC Glucose 133 H 04/26/25 08:04: POC Glucose 194 H Microbiology: Microbiology 04/20/25 20:00 Blood Culture (Wb) - Anticubital Left Blood Culture - Final No growth in 5 days. 04/20/25 19:41 Blood Culture (Wb) - Anticubital Left Blood Culture - Final No growth in 5 days. D/C Instructions DC O2, CPAP, BIPAP Needs Home O2 Discharge instructions: No Meaningful Use Info Meaningful Use Meaningful Use Diagnoses (Choose all that apply): None applicable Discharge Plan Admission Admit Date/Time: 04/20/25 22:09 Attending Provider: Regulo Starks Primary Care Provider: Jamari Byrne Consulting Providers: Ariadne Hobbs Discharge Orders/Prescriptions Prescriptions: New insulin glargine-yfgn 100 unit/mL (3 mL) Insulin Pen 10 unit subcut BID Qty: 0 0RF insulin lispro [Humalog KwikPen Insulin] 100 unit/mL Insulin Pen 5 unit subcut TIDAC Qty: 0 0RF Continued fluoxetine 20 mg capsule 20 mg PO DAILY glipizide 5 mg tablet 5 mg PO BID metformin 500 mg tablet 500 mg PO BID Referrals / Follow Up: Jamari Byrne MD [Primary Care Provider, Family Practice] Disposition Disposition (needs filled in before D/C Order can be placed): Long Term Facility Charges/Coding Visit Charges Inpatient E&M: 79859 Disch Hosp >30min
== END 2025-04-26 13:09 | disposition skilled nursing facility (03) | DRG 638 ==
LOC: ED 22:09 → ICU 22:26 → PCU 04-23 15:21
PROVIDERS: Admitting Provider Family Medicine; Emergency Provider Emergency Medicine; PCP Family Medicine; Visit Provider Family Medicine
DX: E11.10 Type 2 diabetes mellitus with ketoacidosis 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 (principal); B37.0 Candidal stomatitis; N39.0 Urinary tract infection, site not specified; F31.9 Bipolar disorder, unspecified; Z79.4 Long term (current) use of insulin; K21.9 Gastro-esophageal reflux disease without esophagitis; F41.8 Other specified anxiety disorders; H53.9 Unspecified visual disturbance; Z87.891 Personal history of nicotine dependence; Z79.84 Long term (current) use of oral hypoglycemic drugs; Z90.49 Acquired absence of other specified parts of digestive tract
CPT/HCPCS: 36415; 36600; 51702; 70450; 71045; 80048; 80051; 80053; 81001; 82010; 82728; 82803; 82962; 83036; 83540; 83550; 83605; 83690; 83735; 84100; 84703; 85025; 87040; 92526; 92610; 94668; 97110; 97163; 97167; 97530; 97535; 97802; 97803; 99285; A4216; J0612; J0696

== ENCOUNTER 2025-05-03 17:00 | Inpatient (IN) | payer MEDICARE, MEDICAID, SELFPAY ==
[2025-05-03 17:01] VITALS: BP 142/99; PULSE 127; RESP 42; TEMP 36.8; O2SAT 98; BMI 28.1
--- NOTE | 2025-05-03 17:21 | EKG12_ITS ---
Test Reason : WEANESS Blood Pressure : */* mmHG Vent. Rate : 125 BPM Atrial Rate : 125 BPM P-R Int : 114 ms QRS Dur : 64 ms QT Int : 328 ms P-R-T Axes : 39 45 44 degrees QTcB Int : 473 ms Sinus tachycardia Otherwise normal ECG Confirmed by DESTIN SHAFER, YADI ([id number]), elementary reading specialist CALE TY ([id number]) on 05/04/2025 9:19:30 AM Referred By: BEL/RICK Confirmed By: YADI WEIR MD
--- NOTE | 2025-05-03 17:21 | CT_ITS ---
PROCEDURE: CTA CHEST W/WO CONTRAST 05/03/2025 REASON FOR EXAM: SHORTNESS OF BREATH, TACHYCARDIA TECHNIQUE: Procedure Code: [id number] Modality: CT Procedure: CTA CHEST W/WO CONTRAST Multiplanar Sagittal and Coronal images were obtained. 3D post processing was performed. CONTRAST: Isovue 370 VOLUME: 100 mL One or more dose reduction techniques were used (e.g., Automated exposure control, adjustment of the mA and/or kV according to patient size, use of iterative reconstruction technique). RADIATION DOSE SUMMARY: DLP: 430.32 mGycm COMPARISON: None. FINDINGS: PULMONARY VESSELS: There are a few small segmental-subsegmental pulmonary arterial emboli mainly within the lower lobe branches. No central PE. Normal caliber of the main pulmonary trunk. No evidence for cardiac strain. LUNGS/PLEURA: Small subpleural airspace opacity in the posterior right lung base may represent a small focus of pulmonary infarct. Mild scattered linear/discoid atelectasis in the bilateral lung bases. Otherwise no focal airspace consolidation or findings of pulmonary edema. No pneumothorax or pleural effusion. MEDIASTINUM: Unremarkable. No suspicious lymph node enlargement. HEART: Normal in size. No pericardial effusion or coronary artery calcification. THORACIC AORTA: Normal. No aneurysm or dissection. UPPER ABDOMEN: No significant abnormality visualized. Status post cholecystectomy. Hepatic steatosis with focal fatty infiltration adjacent to the falciform ligament. BONES: No significant abnormality. CT/CTA Chest W/WO Contrast IMPRESSION: Few small segmental-subsegmental pulmonary arterial emboli. Small subpleural a irspace opacity in the posterior right lung base may represent atelectasis versus a small pulmonary infarct. Reading Location: [id number]
--- NOTE | 2025-05-03 17:22 | EDS_ITS ---
HPI History of Present Illness Chief Complaint: Weakness Narrative Narrative: 30-year-old female past medical history of diabetes, bipolar disorder, presents from [facility] with shortness of breath that she has had since Friday. This was approximately 4 days ago. She and her significant other relate history that she was seen in the emergency department a few weeks ago. At that time, she was admitted to the ICU, then transferred to the TCU. She has been at the prison facility for the last week because she is still having generalized weakness and inability to ambulate. While they state that she can move her legs, she has been having a hard time with standing and walking. She denies fever or chills but she and her significant other states that her shortness of breath has been increasing over the last few days. They state that her speech is also short as she is short of breath. She states that she receives Lovenox shots because she is unable to get up and move her legs very well. She presents with multiple complaints, but mainly shortness of breath since Friday. No fevers or chills, no cough. [facility] Medical History Anxiety and depression Former smoker Wears dentures Wears glasses Bipolar disorder Gastric reflux Insulin dependent diabetes mellitus Asthma Osteoarthritis Diabetes Home Medications Medication Instructions Recorded Last Taken Type fluoxetine 20 mg capsule 20 mg PO DAILY anxiety 11/1512/16/24 History glipizide 5 mg tablet 5 mg PO BID dm 04/20/25 Unkn own History metformin 500 mg tablet 500 mg PO BID dm 04/20/25 Un known History insulin glargine-yfgn 100 unit/mL 10 unit (0.1 mL) sub cut BID #0 mL 04/26/25 Unknown Rx (3 mL) subcutaneous pen insulin lispro 100 unit/mL 5 unit (0.05 mL) subcut TID AC #0 mL 04/26/25 Unknown Rx subcutaneous pen (Humalog KwikPen (U-100) Insulin) Allergy/AdvReac Type Severity Reaction Status Date / Time aripiprazole (From Abilify) AdvReac Other Verified 05/03/25 17:05 metoclopramide (From Reglan) AdvReac Other Verified 05/03/25 17:05 ondansetron (From Zofran) AdvReac Vomiting Verified 05/03/25 17:05 quetiapine (From Seroquel) AdvReac Other Verified 05/03/25 17:05 sertraline (From Zoloft) AdvReac Other Verified 05/03/25 17:05 Family History Father Heart disease Hyperlipemia Mother COPD (chronic obstructive pulmonary disease) Surgical History History of dilation and curettage History of oral surgery History of cholecystectomy Social History household members: none Smoking Status: Former smoker alcohol intake: never substance use type: does not use ROS ROS ED ROS Narrative Review of systems positive for shortness of breath, short speech. No fevers or chills. No cough. No nausea or vomiting. Generalized weakness with inability to move legs very well. EXAM Physical Exam Narrative Exam Narrative: Afebrile. Vital signs noted. Nontoxic-appearing. Cardiovascular examination reveals a regular tachycardia. Lungs are clear to auscultation bilaterally. She is tachypneic. She takes of breath after every word that she speaks. Abdomen is soft and nontender with positive bowel sounds. Neurological examination is nonfocal. She is able to reposition her legs. She appears neurovascular intact distally with palpable dorsalis pedis pulses bilaterally. No overt swelling or erythema. Const Vital Signs: 05/03/25 17:01 05/03/25 17:05 05/03/25 17:46 Temperature 98.2 F Temperature Source Oral Pulse Rate 127 H Respiratory Rate 42 H Respiratory Effort Normal Non-Labored Respiratory Pattern Normal Blood Pressure 142/99 H Blood Pressure Mean 113 Pulse Ox 98 Oxygen Delivery Method Room Air Room Air 05/03/25 19:00 Temperature Temperature Source Pulse Rate 125 H Respiratory Rate 20 H Respiratory Effort Respiratory Pattern Blood Pressure 142/99 H Blood Pressure Mean 113 Pulse Ox 100 Oxygen Delivery Method Room Air MDM MDM MDM Narrative Medical decision making narrative: The differential diagnosis includes but not limited to pneumonia versus pneumothorax versus pulmonary embolism versus DKA versus subjective dyspnea. I reviewed the patient's prior ED visits. Additionally, I do recall seeing the patient and admitting her to the ICU at that time she had presumed diabetic ketoacidosis although she has type 2 diabetes as well as a urinary tract infection/sepsis. Comprehensive workup was once again pursued. EKG obtained and interpreted by myself independently as sinus tachycardia at [address] changes. No STEMI. I reviewed her laboratory work and she has WBC count of 8.4 with hemoglobin 12.8, hematocrit 38.9, platelet count 326, INR is 1.0 with a PTT 24.1. Lactic acid normal at 1.2 so I doubt sepsis. ALT slightly elevated at 206 which I think is nonspecific with AST of 60. Total bilirubin normal at 0.68. Urinalysis negative for infection with 0-5 white cells. I do not feel antibiotics are indicated. I reviewed the radiology report of the CTA of the chest and she has bilateral lower lobe pulmonary emboli. In the posterior right lung base she may have atelectasis versus pulmonary infarct. Upon repeat examination at approximately 1920, she states she feels improved. However, she remains tachycardic. She states that she was taking Lovenox at the prison facility, but I do not see it listed on her medication list there although they state that she has a long-term use of anticoagulant. I do feel that given her pulmonary emboli and possible pulmonary infarct that she requires admission. She will be started on a heparin drip. Patient verbally consented until the the risk of intracranial hemorrhage versus GI hemorrhage and other bleeding diathesis and acknowledges an understanding. Patient will be discussed with the hospitalist. Patient discussed with Dr. Ariadne Hobbs. Disposition is assigned to observation to the PCU in stable condition. History & Record Review Discussion w/independent historian: Patient and Significant other Additional record(s) reviewed:: Prior ED visit (Seen by myself previously, earlier this month for DKA and UTI.) and Prior labs Lab Data Attestation: I reviewed the patient's lab results. Labs: Laboratory Results - last 24 hr 05/03/25 05/03/25 17:14 17:45 WBC 8.4 RBC 4.51 Hgb 12.8 Hct 38.9 MCV 86.3 MCH 28.4 MCHC 32.9 RDW Std Deviation 42.1 RDW Coeff of Linda 14.6 Plt Count 326 MPV 11.2 Immature Gran % (Auto) 0.400 Neut % (Auto) 70.7 H Lymph % (Auto) 19.0 Maries % (Auto) 7.9 Eos % (Auto) 1.5 Baso % (Auto) 0.5 Absolute Neuts (auto) 6.0 Absolute Lymphs (auto) 1.60 Nucleated RBC % 0 PT 13.4 INR 1.0 APTT 24.1 Sodium 139 Potassium 4.3 Chloride 99 Carbon Dioxide 25.2 Anion Gap 15 BUN 19 Creatinine 0.36 L Estim Creat Clear Calc 209.15 Est GFR (MDRD) Non-Af 140 BUN/Creatinine Ratio 51.8 H Glucose 238 H Lactic Acid 1.2 Calcium 9.8 Total Bilirubin 0.68 AST 60 H ALT 206 H Alkaline Phosphatase 81 Total Protein 7.6 Albumin 4.1 Globulin 3.6 Albumin/Globulin Ratio 1.1 Urine Color Yellow Urine Clarity Clear Urine pH 6.0 Ur Specific Castile 1.025 Urine Protein 15 H Urine Glucose (UA) 1000 H Urine Ketones 15 H Urine Occult Blood Negative Urine Nitrite Negative Urine Bilirubin Negative Urine Urobilinogen 1 H Ur Leukocyte Esterase Negative Urine RBC 0-5 SEEN Urine WBC 0-5 SEEN Ur Squamous Epith Cells 0-5 SEEN Urine Bacteria 1+ Urine Mucus 0 SEEN Radiography CTA PE Study: - (Bilateral lower lobe pulmonary emboli) Diagnostic Testing: Clinical Impression(s) from Imaging Studies Chest CTA 05/03/25 17:21 IMPRESSION: Few small segmental-subsegmental pulmonary arterial emboli. Small subpleural airspace opacity in the posterior right lung base may represent atelectasis versus a small pulmonary infarct. Reading Location: [facility] Management Discussion w/another healthcare provider: Hospitalist (Dr. Hobbs) Discharge Plan Dx/Rx/DC Orders Clinical Impression: Bilateral pulmonary embolism, Diabetes, Tachycardia, Tachypnea Disposition Disposition: Acute Care Hospital [facility]
[2025-05-03] MEDS: 0.9% Normal Saline (1000mL) 1,000 ML 999 ML IV (17:30)
[2025-05-03 17:52] LABS: Mucous, Urine 0 SEEN /hpf (<or=2+)
[2025-05-03 17:56] LABS: Color, Urine Yellow (Yellow); Glucose, Dipstick 1000 mg/dl (Normal); Ketone-Dipstick 15 mg/dl (Negative); Leukocyte Esterase-Dipstick Negative /ul (Negative); Nitrite-Dipstick Negative (Negative); Occult Blood-Urine Negative /ul (Negative); Protein-Dipstick 15 mg/dl (Negative); Specific Gravity, Urine 1.025 (1.002-1.030); Urine Bilirubin Dipstick Negative (Negative)
[2025-05-03 17:58] LABS: AST(SGOT) 60 U/L (<=31); Alanine Aminotransfer ALT/SGPT 206 U/L (<=34); Albumin, Serum 4.1 g/dL (3.5-5.0); Alkaline Phosphatase 81 U/L (35-104); Anion Gap 15 (5-15); BUN 19 mg/dL (4-19); BUN/Creat Ratio 51.8 RATIO (10-20); Calcium,Total 9.8 mg/dL (7.6-11.0); Carbon Dioxide 25.2 mmol/L (21.0-32.0); Chloride 99 mmol/L (98-108); Estimated Creatinine Clearance 209.15 ml/min (50-250); Globulin 3.6 g/dL (2.2-4.2); Glucose 238 mg/dL (70-99); Potassium 4.3 mmol/L (3.3-5.1)
[2025-05-03 18:13] LABS: Hematocrit 38.9 % (37-47); Hemoglobin 12.8 g/dL (12.0-15.0); Immature Granulocytes Count 0.030 X10^3/uL (0.0-0.0); Mean Corp Hgb Conc 32.9 g/dL (32-36); Mean Corpuscular Volume 86.3 fL (81-99); Mean Platelet Vol. 11.2 fl (6.2-12.0); NRBC Flagged by Analyzer 0 % (0-5); Platelet Count 326 K/mm3 (150-450); RBC Distribution Width CV 14.6 % (11.6-14.6); RBC Distribution Width SD 42.1 fl (35.1-43.9); Red Blood Count 4.51 M/mm3 (4.2-5.4); White Blood Count 8.4 K/mm3 (4.4-11.0)
[2025-05-03 18:20] LABS: Prothrombin Time (Protime)PT. 13.4 SECONDS (11.7-14.9)
[2025-05-03 18:21] LABS: Partial Thromboplast Time 24.1 Seconds (24.1-36.2)
[2025-05-03 18:45] LABS: Red Blood Cells-Urine 0-5 SEEN /hpf (0-5); Squamous Epithelial Cells - UA 0-5 SEEN /hpf (5-10)
[2025-05-03 19:00] VITALS: BP 142/99; PULSE 125; RESP 20; O2SAT 100
--- NOTE | 2025-05-03 19:40 | HP.PCM.HOS_ITS ---
HPI - General General Date of Admission: 05/03/25 Date of Service: 05/03/25 Chief Complaint: Dyspnea, tachycardia. HPI Narrative The patient is a 30 y/o F w/ PMHx: Former tobacco use, Asthma, IDDM, Anxiety and Depression/Bipolar disorder, GERD, recent discharge following prolonged admission on 04/26/2025 following treatment and evaluation of DKA as well as urinary tract infection with significant associated encephalopathy with discharge on Lantus 10 units twice daily as well as Humalog 5 unit 3 times daily with meals in addition to resumption of metformin and glipizide with completion of IV antibiotics in house as well as oral nystatin for thrush discharge to long-term facility who now re-presents to the [facility] ED on 05/03/2025 with history of progressively worsening generalized weakness, fatigue, debility not ambulating with difficulty even walking or standing with increasing shortness of breath over the last 48 hours. Patient in the emergency reports that she reportedly is on Lovenox but from records it appears she was on chemoprophylaxis only in TCU but upon transition to skilled nurse facility this may not have been continued at their facility. Workup in the ED included T98.2, heart rate 127, BP 142/99, respiratory rate 42, 98% room air with most recent repeat vitals heart rate 125, BP 142/99, respiratory rate 20, 1 Hyper-Fabian room air, CBC with WC 8.4, Pilar 12.8, platelets 326 at marked shift, unremarkable coags, CMP with BUN/Cryan 19/0.36, GFR 140, glucose 238, hepatic profile with AST/ALT 60/206 otherwise not marked appearing, lactic acid 1.2, urinalysis with no marked evidence of UTI with protein 15, glucose 1000, ketone 15, elevated specific gravity 1.025, chest CTA with few small segmental subsegmental pulmonary arterial emboli, small subpleural airspace opacity right posterior lung base possibly atelectasis versus small pulmonary infarct, EKG with sinus tachycardia with no acute evidence of ischemia. In the ED patient initiated on heparin drip and bolus as well as administered 1 L normal saline. [facility] Medical History Anxiety and depression Former smoker Wears dentures Wears glasses Bipolar disorder Gastric reflux Insulin dependent diabetes mellitus Asthma Osteoarthritis Diabetes Home Medications Medication Instructions Recorded Last Taken Type fluoxetine 20 mg capsule 20 mg PO DAILY anxiety 11/1512/16/24 History glipizide 5 mg tablet 5 mg PO BID dm 04/20/25 Unkn own History metformin 500 mg tablet 500 mg PO BID dm 04/20/25 Un known History insulin glargine-yfgn 100 unit/mL 10 unit (0.1 mL) sub cut BID #0 mL 04/26/25 Unknown Rx (3 mL) subcutaneous pen insulin lispro 100 unit/mL 5 unit (0.05 mL) subcut TID AC #0 mL 04/26/25 Unknown Rx subcutaneous pen (Humalog KwikPen (U-100) Insulin) Allergy/AdvReac Type Severity Reaction Status Date / Time aripiprazole (From Abilify) AdvReac Other Verified 05/03/25 17:05 metoclopramide (From Reglan) AdvReac Other Verified 05/03/25 17:05 ondansetron (From Zofran) AdvReac Vomiting Verified 05/03/25 17:05 quetiapine (From Seroquel) AdvReac Other Verified 05/03/25 17:05 sertraline (From Zoloft) AdvReac Other Verified 05/03/25 17:05 Family History Father Heart disease Hyperlipemia Mother COPD (chronic obstructive pulmonary disease) Surgical History History of dilation and curettage History of oral surgery History of cholecystectomy Social History household members: none Smoking Status: Former smoker alcohol intake: never substance use type: does not use ROS ROS Narrative Admission Review of Systems: CONSTITUTIONAL: No weight loss, fever, chills, + weakness or fatigue. HEENT: + Notably dry lips. Eyes: No visual loss, blurred vision, double vision or yellow sclerae. Ears, Nose, Throat: No hearing loss, sneezing, congestion, runny nose or sore throat. SKIN: No rash or itching, lesions, wounds except + occasional stage ecchymoses, abrasion. CARDIOVASCULAR: + Racing heart/palpitations. No chest pain, chest pressure or chest discomfort, edema, orthopnea, syncopal events. RESPIRATORY: + Dyspnea, worse with exertion at times. No cough or sputum, wheezing, hemoptysis. GASTROINTESTINAL: Still admits to poor hydration but eating, denies any nausea, emesis, diarrhea, abdominal pain, melena, BRBPR. GENITOURINARY: No dysuria, frequency, urgency or retention. NEUROLOGICAL: No headache, dizziness, syncope, paralysis, ataxia, numbness or tingling in the extremities, focal weakness, change in bowel or bladder control, seizure. MUSCULOSKELETAL: + muscle, back pain, joint pain or stiffness. HEMATOLOGIC: No anemia, bleeding or bruising. LYMPHATICS: No enlarged nodes. No history of splenectomy. PSYCHIATRIC: + History of anxiety and depression/bipolar disorder. ENDOCRINOLOGIC: No reports of sweating, cold or heat intolerance. + polyuria or polydipsia. ALLERGIES:+ History of asthma. Vital Signs Vital Signs Vital Signs: 05/03/25 17:01 05/03/25 17:05 05/03/25 17:46 Temperature 98.2 F Temperature Source Oral Pulse Rate 127 H Respiratory Rate 42 H Respiratory Effort Normal Non-Labored Respiratory Pattern Normal Blood Pressure 142/99 H Blood Pressure Mean 113 Pulse Ox 98 Oxygen Delivery Method Room Air Room Air 05/03/25 19:00 Temperature Temperature Source Pulse Rate 125 H Respiratory Rate 20 H Respiratory Effort Respiratory Pattern Blood Pressure 142/99 H Blood Pressure Mean 113 Pulse Ox 100 Oxygen Delivery Method Room Air Weight Weight: 153 lb 14.122 oz Body Mass Index (BMI) 28.1 Physical Exam Narrative Physical Examination: General: Awake, alert, oriented x 3 and cooperative, lying in the ED bed, evidence of tachypnea but when patient is conversive this calms. Skin: Normal color, normal turgor, no icterus, no cyanosis Except occasional stage ecchymoses, abrasion. HEENT: AT/NC, EOMI, PERRLA, notably dry MM, no carotid bruits or JVD noted. Lungs: Diminished, greater bases, notable tachypnea but calms with distraction, no evidence of any distress, no appreciated rales, ronchi or wheezing. Heart: Mildly tachycardic with regular rhythm; no gallop, rub audible. Abdomen: Soft, overweight, NTTP, ND, mildly hyperactive BS, no appreciated HSM. Extremities: No cyanosis, no clubbing, no significant distal pitting edema, no tenderness to bilateral calf palpation. Neurological: Patient awake, alert, oriented as noted, cognitive function intact; pupils equally reactive to light and accommodation, cranial nerves grossly normal, moving all 4 extremities, no focal deficits, strength severely globally creased. Psychiatric: Affect appears fatigued, as noted tachypneic but calms with distraction, no evidence of any distress, no acute evidence of depressive or anxiety feelings but does have underlying history. Results Lab / Micro Data 05/03/25 17:14 05/03/25 17:14 Labs: Laboratory Results - last 24 hr 05/03/25 17:14: WBC 8.4, RBC 4.51, Hgb 12.8, Hct 38.9, MCV 86.3, MCH 28.4, MCHC 32.9, RDW Std Deviation 42.1, RDW Coeff of Linda 14.6, Plt Count 326, MPV 11.2, Immature Gran % (Auto) 0.400, Neut % (Auto) 70.7 H, Lymph % (Auto) 19.0, Sierra % (Auto) 7.9, Eos % (Auto) 1.5, Baso % (Auto) 0.5, Absolute Neuts (auto) 6.0, Absolute Lymphs (auto) 1.60, Nucleated RBC % 0, PT 13.4, INR 1.0, APTT 24.1, Sodium 139, Potassium 4.3, Chloride 99, Carbon Dioxide 25.2, Anion Gap 15, BUN 19, Creatinine 0.36 L, Estim Creat Clear Calc 209.15, Est GFR (MDRD) Non-Af 140, BUN/Creatinine Ratio 51.8 H, Glucose 238 H, Lactic Acid 1.2, Calcium 9.8, Total Bilirubin 0.68, AST 60 H, ALT 206 H, Alkaline Phosphatase 81, Total Protein 7.6, Albumin 4.1, Globulin 3.6, Albumin/Globulin Ratio 1.1 05/03/25 17:45: Urine Color Yellow, Urine Clarity Clear, Urine pH 6.0, Ur Specific [place] 1.025, Urine Protein 15 H, Urine Glucose (UA) 1000 H, Urine Ketones 15 H, Urine Occult Blood Negative, Urine Nitrite Negative, Urine Bilirubin Negative, Urine Urobilinogen 1 H, Ur Leukocyte Esterase Negative, Urine RBC 0-5 SEEN, Urine WBC 0-5 SEEN, Ur Squamous Epith Cells 0-5 SEEN, Urine Bacteria 1+, Urine Mucus 0 SEEN Imaging Radiology Impression Chest CTA 05/03/25 17:21 IMPRESSION: Few small segmental-subsegmental pulmonary arterial emboli. Small subpleural airspace opacity in the posterior right lung base may represent atelectasis versus a small pulmonary infarct. Reading Location: [id number] Assessment & Plan Assessment/Plan (1) Bilateral pulmonary embolism: PLAN: Plan The patient is a 30 y/o F w/ PMHx: Former tobacco use, Asthma, IDDM, Anxiety and Depression/Bipolar disorder, GERD, recent discharge following prolonged admission on 04/26/2025 following treatment and evaluation of DKA as well as urinary tract infection with significant associated encephalopathy with discharge on Lantus 10 units twice daily as well as Humalog 5 unit 3 times daily with meals in addition to resumption of metformin and glipizide with completion of IV antibiotics in house as well as oral nystatin for thrush discharge to long-term facility who now re-presents to the [facility] ED on 05/03/2025 with history of progressively worsening generalized weakness, fatigue, debility not ambulating with difficulty even walking or standing with increasing shortness of breath over the last 48 hours. #1. Debility, dyspnea, progressive decline with adult failure to thrive, multifactorial secondary to recent prolonged admission in addition to history as noted below in addition to acute presentation with acute bilateral pulmonary emboli and possible concurrent small infarct: EKG with sinus tachycardia without acute findings. Will admit to PCU, maintain on cardiac telemetry, will obtain BNP and if notably elevated may certainly consider echocardiogram, will continue heparin drip initially in the ED with oral transition once regimen investigated for cost. PT/OT/case management consulted for discharge planning. If patient is clinically appropriate with less than tachycardia, improvement of her dyspnea and transition to oral NOAC would consider discharged back to long-term facility for ongoing therapies 05/04/2025. #2. Transaminitis, unclear etiology: Admission hepatic profile with AST/ALT 60/206, potentially related with acute presentation with some component of at least dehydration, uncertain, if continues to rise certainly low threshold to obtain liver ultrasound, will repeat CMP in AM. #3. Diabetes mellitus type II: Hold oral home regimen, continue home insulin regimen, ADA diet, accu checks w/ ISS. #4. Anxiety and depression/bipolar disorder: Will continue patient on fluoxetine regimen, most recent medication list no longer noting buproprion at her recent discharge. #5. Chronic asthma: No on chronic regimen, will maintain on PRN albuterol, HOB, IS parameters. #6. Former tobacco use: Encourage continued tobacco cessation. #7. GERD: Not on regimen, will have mylanta as needed, not on chronic regimen. #8. DVT prophylaxis: Heparin drip. Charges/Coding Visit Charges Inpatient E&M: 63030 Init Hosp L3
--- NOTE | 2025-05-03 19:57 | CM.ED ---
Social Work SW met with patient and patients , both confirm that patient plans to return to [facility] when medically ready. Alcira Graham, PREVENTIVE MAINTENANCE COORDINATOR, GLUING MACHINE OFFBEARER
[2025-05-03] MEDS: Heparin Injection (Vial) 5,000 UNIT/ML VIAL 4000 UNIT IV (20:02)
[2025-05-03] MEDS: HEPARIN/D5w 25,000 UNITS 25,000 UNITS/250 ML IV.SOLN. 8.4 UNITS CONT INF (20:04)
[2025-05-03 20:13] VITALS: BP 133/111; PULSE 132; RESP 23; TEMP 37.1; O2SAT 99
--- OUTSIDE RECORDS SUMMARY | 2025-05-03 20:14 | XMS RPT_ITS | CCD ---
Author Organization [facility] Care Team Providers Care Customer Security Clerk Name Role Phone HERNANDEZLESLIEJOSIE Unavailable Unavailable ARMINDA, [...] Care Provider Arminda, Verona Primary Care Provider [phone] Juno Blackburn Unavailable Unavailable Unavailable Unavailable Unavailable Oberhauser, Rich Unavailable Unavailable Alexey Juno Unavailable Unavailable Oberhauser, Rich L Unavailable Unavailable MATY CHAVEZ Admitting Unavailable KOMALMATY CORBIN Referring Unavailable ARMINDA, VERONA Primary Care Unavailable Arminda, Verona Primary Care Provider ARMINDA, VERONA Primary Care Unavailable CAROL GUBERT KEENAN Attending Unavailable ARMINDA, VERONA Primary Care Unavailable OBERHAUSER RICH Referring Unavailable MEDINAMICHOACANOBERT KEENAN Attending Unavailable ARMINDA, VERONA Primary Care Unavailable REKHA ROCHA Attending Unavailabl e MEDINASRINI KEENAN Attending Unavailable ARMINDA, VERONA Primary Care Unavailable MEDINA, GUBERT KEENAN Admitting Unavailable ARMINDA, VERONA Primary Care Unavailable MEDINA GUBERT KEENAN Attending Unavailable MEDINA, GUBERT KEENAN Referring Unavailable ARMINDA, VERONA Primary Care Unavailable MATY CHAVEZ Attending Unavailable KOMAL, MATY LISA Referring Unavailable Arminda, Verona Primary Care Provider Unavailabl e Oberhauser, Rich L Unavailable [phone] Epifanio Sorensen Unavailable Unavailable ObnadirerRealn L Unavailable [phone] Unavailable Unavailable Unavailable Unavailable KATIANA ROCHA Referring Unavailable AJ KATIANA Primary Care Unavailable Jamari Byrne Unavailable Unavailable Unavailable Unavailable Unavailable Unavailable Unavailable Marshall Brown MD Primary Care Provider [phone] MARSHALL BROWN Primary Care Unavailable LAZARA JON [...] Jamari Byrne MD Unavailable [phone] Dr. Jaamri Byrne MD Primary Care Provider Leonie Waldron [...] ARIPiprazole (1 source) ARIPiprazole Drug Allergy Unknown [facility] DOPamine Antagonists (5 sources) Metoclopramide; Translations: [Reglan] Drug Allergy Unknown [facility] Ondansetron (5 sources) Ondansetron; Translations: [Zofran] Drug Allergy Unknown [facility] QUEtiapine (5 sources) QUEtiapine; Translations: [quetiapine] Drug Allergy Unknown [facility] (1 source) No Known Drug Allergies; Translations: [No Known Drug Allergies] Propensity to adverse reactions (disorder) [facility] Repository (1 source) No Known Allergies; Translations: [No Known Allergies] Propensity to adverse reactions (disorder) [facility] Repository (20 sources) Ondansetron; Translations: [Zofran] Drug Allergy 02-06-20 18 Nausea and Vomiting, Vomiting, GI Upset, Other, Unknown, Nausea/vomitin g Medic [facility] (20 sources) Aluminum Hydroxide / Magnesium Hydroxide; Translations: [ALUMINUM-MAGNESIU M HYDROXIDE] Drug Allergy 02-06-20 18 GI Intolerance, Other, GI Upset [facility] (20 sources) Metoclopramide; Translations: [METOCLOPRAMIDE HCL] Drug Allergy 02-11-20 19 Hives, Unknown [facility] (20 sources) Ondansetron; Translations: [ONDANSETRON HCL] Drug Allergy 02-06-20 18 GI Intolerance, Unknown, GI Upset, Other [facility] (20 sources) QUEtiapine; Translations: [QUETIAPINE] Drug Allergy 10-05-19 19 Shortness Of Breath, Unknown, Palpitations, Other: See Comments, Other, Dyspnea [facility] Comment on above: Lethargy (14 sources) Metoclopramide; Translations: [Reglan] Drug Allergy Unknown [facility] Repository (4 sources) Ondansetron; Translations: [ZOFRAN] Drug Allergy Unknown [facility] Rep[facility] (20 sources) Sertraline; Translations: [SERTRALINE] Drug Allergy 12-08-19 20 Other, Mental Status Change, Unknown [facility] Repository Comment on above: Suicidal Ideation (20 sources) ARIPiprazole; Translations: [ARIPIPRAZOLE] Drug Allergy 12-14-19 23 Unknown, Mental Status Change [facility] Work Phone: Comment on above: Suicidal Ideation (20 sources) Metoclopramide; Translations: [METOCLOPRAMIDE] Drug Allergy 02-11-20 19 Vomiting, Hives, Nausea/vomitin g, Unknown, Nausea and Vomiting [facility] Comment on above: Heart palpitations (20 sources) Promethazine; Translations: [PROMETHAZINE] Drug Allergy 07-11-19 GI Upset [facility] Work Phone: (1 source) Promethazine Drug Allergy [facility] Repository (1 source) ARIPiprazole Drug Allergy 01-27-20 [facility] Repository (1 source) Metoclopramide Drug Allergy 01-27-20 [facility] Rep[facility] (1 source) Ondansetron Drug Allergy 01-27-20 [facility] Rep[facility] (1 source) QUEtiapine Drug Allergy 01-27-20 [facility] Repository Medications Current Medications Medication [...] DAY FOR 2 DAYS. 04/19/2024 05/07/2024 Discontinued [id number] 200 actuat albuterol 0.09 mg/actuat metered dose [...] extended release oral tablet (1 source) Uncompetitive B-orqlue-J-aspartate Receptor Antagonist, Sigma-1 Agonist Start: take 30-600 [...] 15, 2024 4:00pm Mood Start: 02-26-2024 FLUoxetine (GA Ozac) 40 mg capsule 04/15/2024 Active Start: [...] (GDM) in first trimester ([facility]) Humalog 8 units prior to meals (+5 units with "higher carb" meals) 15 mL 02/01/2025 02/22/2025 Discontinued Start: [...] bedtime insulin NPH human isophane (HUMULIN N ADJUNCT LATIN PROFESSOR H U-100 INSULIN SUBQ) Inject 15 Units [...] Start: 09-19-2020 take 1 capsule by mo uth once daily Omeprazole 20 MG Oral Capsule [...] ONCE. Quantity: 1 Refills: 0 Ordered: 27-Nov-2021 Herman WEBSTER Genoveva Start : 27-Nov-2021 Active Blood-Glucose Meter (ACCU-CHEK [...] device Indications: Hyperglycemia due to diabetes mellitus ([facility]) Apply every 10 days 3 each 09/09/2022 [...] Cleanup) Start: 12-08-2023 take 1 capsule by [facility] once daily at bedtime Caplyta 21 [...] infection in mother during first trimester of ([facility]) Take 1 capsule (500 mg) by mouth [...] g 0 03/12/2017 09/12/2018 Discontinued Dexcom G4 picayune cherry picker operator (Dexcom G6 Application Chemist) misc (19 sources) Start: 03-17-2023 End: 05-04-2024 Dexcom G4 picayune cherry picker operator (Dexcom G6 Application Chemist) misc Indications: Hyperglycemia due to diabetes mellitus (Multi) Use as instructed 1 each 03/17/2023 05/04/2024 Discontinued (Med List Cleanup) Start: 03-17-2023 Dexcom G4 plat inum cherry picker operator (Dexcom G6 Application Chemist) misc Indications: Hyperglycemia due to diabetes mellitus (Multi) Use as instructed 1 each 03/17/2023 Active Start: 03-17-2023 Dexcom G4 plat inum cherry picker operator (Dexcom G6 Application Chemist) misc Indications: Hyperglycemia due to diabetes mellitus (CMS/HCC) Use as instructed 1 each 0 03/17/2023 Active Start: 09-09-2022 End: 05-04-2024 Dexcom G4 picayune cherry picker operator (Dexcom G6 Application Chemist) misc Indications: Hyperglycemia due to diabetes mellitus (Multi) Use as instructed 1 each 09/09/2022 05/04/2024 Discontinued (Med List Cleanup) Start: 09-09-2022 Dexcom G4 plat inum cherry picker operator (Dexcom G6 Application Chemist) misc Indications: Hyperglycemia due to diabetes mellitus (Multi) Use as instructed 1 each 09/09/2022 Active Start: 09-09-2022 Dexcom G4 plat inum cherry picker operator (Dexcom G6 Application Chemist) misc Indications: Hyperglycemia due to diabetes mellitus (CMS/HCC) Use as instructed 1 each 0 09/09/2022 Active Dexcom G4 picayune transmitt er (Dexcom G6 Transmitter) device (12 sources) Start: 05-09-2023 End: 05-04-2024 Dexcom G4 picayune transmitt er (Dexcom G6 Transmitter) device Indications: [...] Active Start: 12-13-2022 End: 05-09-2023 Dexcom G4 picayune transmitt er (Dexcom G6 Transmitter) device Indications: Hyperglycemia due to diabetes mellitus (CMS/HCC) Apply every 10 days 1 each 11 12/13/2022 05/09/2023 Discontinued (Reorder) Start: 12-13-2022 Dexcom G4 plat inum transmitter (Dexcom G6 Transmitter) device Indications: Hyperglycemia due to diabetes mellitus (CMS/HCC) Apply every 10 days 1 each 11 12/13/2022 Active Start: 09-09-2022 End: 12-13-2022 Dexcom G4 picayune transmitt er (Dexcom G6 Transmitter) device Indications: [...] pen Indications: Hyperglycemia due to diabetes mellitus ([facility]) Inject 10 Units under the skin once [...] injection Indications: Hyperglycemia due to diabetes mellitus ([facility]) Inject 10 Units under the skin once [...] (GDM) in first trimester ([facility]) Inject 20 units at bed time 15 mL 11 02/01/2025 02/22/2025 Discontinued Start: 01-31-2025 End: 03-09-2025 HumuLIN N NPH Insulin KwikPe n 100 unit/mL (3 mL) pen Indications: type 2 diabetes mellitus Inject 20 Units under the skin once daily at bedtime. [facility] prescribes 01/31/2025 03/09/2025 Discontinued (Med List Cleanup) [...] (GDM) in first trimester ([facility]) 90 units at bedtime 45 mL 11 [...] Start: 02-26-2024 take 1 capsule by mo [facility] once daily Lumateperone (Caplyta) 21 mg capsule Active 21 mg PO daily February 26, 2024 12:00am lurasidone hydrochloride 20 mg oral tablet (12 sources) Atypical Antipsychotic Start: 05-19-2023 End: 11-25-2024 take 2 tablets by mouth once daily [...] , antepartum, unspecified trimester ([facility])] Onset: 07-13-2024 Episodic Other complications of (1 source) Supervision of high risk , unspecified, second trimester; Translations: [Supervision of high risk in second trimester ([facility])] Onset: 09-24-2024 Episodic Other complications of (2 sources) Supervision of high risk , unspecified, first trimester; Translations: [Encounter for supervision of high risk in first trimester, antepartum ([facility])] Onset: 05-07-2024 Episodic Other complications of (2 sources) Other specified related conditions, first trimester; Translations: [Other specified related conditions, first trimester ([facility])] Onset: 05-21-2024 Episodic Other complications of (2 sources) Unspecified infection of urinary tract in , first trimester; Translations: [Unspecified infection of urinary tract in , first trimester ([facility])] Onset: 04-18-2024 Episodic Other complications of (1 [...] Translations: [29 weeks gestation of (HCC)] Onset: 10-04-2024 Episodic Residual codes; unclassified (1 [...] Test Name Value Interpretation Reference Range Facility [facility] 03-07-2025 CNPN Normal [facility] SARS-COV-2 RAPID AG (WIC)on 02-22-2025 SARS-CoV-2 (COVID-19) RNA SUMIT+probe Ql (Unsp spec) Not detected Normal NOT DETECTED [facility] Comment on above: Result Comment: Nega tive [...] #### C COVAG #### [place] [address] NARRATIVE This test was perfor med using lateral flow immunoassay. This test does not differentiate between SARS-CoV and SARS-CoV2. Normal [facility] Comment on above: Performed By: #### C COVAG #### [place] [address] POCT INFLUENZA, A Bon 2024 FLUAV RNA SUMIT+probe Ql (Unsp spec) Negative Negative, Not Tested, Invalid, Not Detected [facility] FLUBV RNA SUMIT+probe Ql (Unsp spec) Negative Negative, Not Tested, Invalid, Not Detected [facility] Interpretation and review of laboratory results Normal [facility] SARS-COV-2 RAPID AGon 2024 SARS-CoV-2 (COVID-19) RNA SUMIT+probe Ql (Unsp spec) [id number] Normal NOT DETECTED [facility] Comment on above: Performed By: #### C OVAG #### [place] [address] NARRATIVE This test was perfor med using lateral flow immunoassay. This test does not differentiate between SARS-CoV and SARS-CoV2. Normal [facility] Comment on above: Performed By: #### C OVAG #### [place] [address] SARS-COV-2 RAPID ANTIGENon 0 02-21-2025 SARS-CoV-2 (COVID-19) RNA SUMIT+probe Ql (Unsp spec) This test was performed using lateral flow immunoassay. This test does not differentiate between SARS-CoV and SARS-CoV2. [facility] SARS-CoV-2 (COVID-19) RNA NA A+probe Ql (Unsp spec)on 02-21-2025 SARS-CoV-2 (COVID-19) Ag IA.rapid Ql (Resp) [id number] NOT DETECTED [facility] CNOVon 02-19-2025 CNOV Normal [facility] UA DIP,URINE HCG (POC)on Beta HCG ( test) Ql (U) Negative Negative [facility] Loader (POCT) Internal QC OK [facility] Location:[facility], [address] [place] [address], [place], [address] [facility] POINT OF CARE [facility] CNPNon 02-01-2025 CNPN Normal [facility] CBCon 01-29-2025 ABSOLUTE BAS 0.1 10*3/uL Normal 0.0-0.2 [facility] Comment on above: Performed By: #### C MPF, ACBC #### Testing performed at [place] [id number] ABSOLUTE EOS 0.1 10*3/uL Normal 0.0-0.7 [facility] Comment on above: Performed By: #### C MPF, ACBC #### Testing performed at [address] [place] [address] ABSOLUTE NEUTROPHIL COUNT 6.2 10*3/uL Normal 1.4-6.5 [facility] Comment on above: Performed By: #### C MPF, ACBC #### Testing performed at [address] [place] [address] Basophils/100 WBC (Bld) 0.7 % Normal 0.0-2.0 [facility] Comment on above: Performed By: #### C MPF, ACBC #### Testing performed at [address] [place] [address] DTYPE AUTO DIFF Normal [facility] Comment on above: Performed By: #### C MPF, ACBC #### Testing performed at [address] [address] Eosinophils/100 WBC (Bld) 1.4 % Normal 0.0-11.0 [facility] Comment on above: Performed By: #### C MPF, ACBC #### Testing performed at [address] [place] [address] Lymphocytes (Bld) [#/Vol] 2.1 10*3/uL Normal 1.2-3.4 [facility] Comment on above: Performed By: #### C MPF, ACBC #### Testing performed at [address] [place] [address] Lymphocytes/100 WBC (Bld) 23.1 % Normal 20.0-55.0 [facility] Comment on above: Performed By: #### C MPF, ACBC #### Testing performed at [address] [place] [address] Monocytes (Bld) [#/Vol] 0.5 10*3/uL Normal 0.0-0.7 [facility] Comment on above: Performed By: #### C MPF, ACBC #### Testing performed at [address] [place] [address] Monocytes/100 WBC (Bld) 5.8 % Normal 0.0-10.0 [facility] Comment on above: Performed By: #### C MPF, ACBC #### Testing performed at [address] [address] Neutrophils/100 WBC (Bld) 69.0 % Normal 37.0-75.0 [facility] Comment on above: Performed By: #### C MPF, ACBC #### Testing performed at [address] [address] Erythrocyte distribution width (RBC) [Ratio] 14.0 % Normal 11.5-14.5 [facility] Comment on above: Performed By: #### C MPF, ACBC #### Testing performed at [address] [address] Hematocrit (Bld) [Volume fraction] 41.1 % Normal 36.0-48.0 [facility] Comment on above: Performed By: #### C MPF, ACBC #### Testing performed at [address] [address] Hemoglobin (Bld) [Mass/Vol] 14.2 g/dL Normal 12.0-16.0 [facility] Comment on above: Performed By: #### C MPF, ACBC #### Testing performed at [address] [address] MCH (RBC) [Entitic mass] 28.3 pg Normal 26.0-35.0 [facility] Comment on above: Performed By: #### C MPF, ACBC #### Testing performed at [address] [address] MCHC (RBC) [Mass/Vol] 34.5 g/dL Normal 27.0-37.0 [facility] Comment on above: Performed By: #### C MPF, ACBC #### Testing performed at [address] [address] MCV (RBC) [Entitic vol] 82.1 fL Normal 80.0-100.0 [facility] Comment on above: Performed By: #### C MPF, ACBC #### Testing performed at [address] [address] Platelet mean volume (Bld) [Entitic vol] 9.8 fL Normal 7.4-11.0 [facility] Comment on above: Performed By: #### C MPF, ACBC #### Testing performed at [address] [address] Platelets (Bld) [#/Vol] 307 10*3/uL Normal 130-400 [facility] Comment on above: Performed By: #### C MPF, ACBC #### Testing performed at [address] [address] RBC (Bld) [#/Vol] 5.01 10*6/uL Normal 4.0-5.4 [facility] Comment on above: Performed By: #### C MPF, ACBC #### Testing performed at [address] [address] WBC (Bld) [#/Vol] 9.1 10*3/uL Normal 3.6-11.0 [facility] Comment on above: Performed By: #### C MPF, ACBC #### Testing performed at [address] [address] CMP FASTINGon 01-29-2025 A:G RATIO 1.4 RATIO Normal [facility] Comment on above: Performed By: #### C MPF, ACBC #### Testing performed at [address] [address] Albumin [Mass/Vol] 4.8 g/dL Normal 3.5-5.0 [facility] Comment on above: Performed By: #### C MPF, ACBC #### Testing performed at [address] [address] ALP [Catalytic activity/Vol] 107 U/L Normal 38-126 [facility] Comment on above: Performed By: #### C MPF, ACBC #### Testing performed at [address] [address] ALT [Catalytic activity/Vol] 59 U/L High <35 [facility] Comment on above: Performed By: #### C MPF, ACBC #### Testing performed at [address] [address] AST [Catalytic activity/Vol] 30 U/L Normal 14-36 [facility] Comment on above: Performed By: #### C MPF, ACBC #### Testing performed at [address] [address] Bilirubin [Mass/Vol] 0.9 mg/dL Normal 0.2-1.3 [facility] Comment on above: Performed By: #### C MPF, ACBC #### Testing performed at [address] [address] Calcium [Mass/Vol] 9.8 mg/dL Normal 8.4-10.2 [facility] Comment on above: Performed By: #### C MPF, ACBC #### Testing performed at [address] [address] Chloride [Moles/Vol] 105 mmol/L Normal 98-107 [facility] Comment on above: Result Comment: Carson barker note: Triglyceride levels of 600mg/dL or higher may positively bias chloride results by approximately 2.1 mmol Performed By: #### C MPF, ACBC #### Testing performed at [address] [address] CO2 [Moles/Vol] 15 mmol/L Critically low 22-30 [facility] Comment on above: Result Comment: Resu lt called to read back by: Maricel OTTO 01/29/2025 @ 21:45 by [facility] Performed By: #### C MPF, ACBC #### Testing performed at [address] [address] Creatinine [Mass/Vol] 0.60 mg/dL Low 0.70-1.20 [facility] Comment on above: Performed By: #### C MPF, ACBC #### Testing performed at [address] [place] [address] GFR Information Average GFR for 30-3 9 years old = 107. Normal [facility] Comment on above: Result Comment: Timber Poisoner andres Kidney disease, GFR = <60. Kidney failure, GFR = <15. The GFR estimate is not adjusted for extreme body surface area or acute process, nor has it been validated for women or ethnic groups other than and . MDRD Equation Performed By: #### C MPF, ACBC #### Testing performed at [address] [address] GFR/1.73 sq M.predicted MDRD (S/P/Bld) [Vol rate/Area] 125 mL/min/{1.73_m2} Normal [facility] Comment on above: Performed By: #### C MPF, ACBC #### Testing performed at [address] [address] Glucose [Mass/Vol] 189 mg/dL High 70-100 [facility] Comment on above: Result Comment: NORMAL <100 mg/dL PREDIABETES 101-126 mg/dL DIABETES 126 mg/dL or higher Performed By: #### C MPF, ACBC #### Testing performed at [address] [address] Potassium [Moles/Vol] 3.5 mmol/L Normal 3.5-5.1 [facility] Comment on above: Performed By: #### C MPF, ACBC #### Testing performed at [address] [address] Protein [Mass/Vol] 8.2 g/dL Normal 6.3-8.2 [facility] Comment on above: Performed By: #### C MPF, ACBC #### Testing performed at [address] [address] Sodium [Moles/Vol] 139 mmol/L Normal 137-145 [facility] Comment on above: Performed By: #### C MPF, ACBC #### Testing performed at [address] [address] Urea nitrogen [Mass/Vol] 7 mg/dL Normal 7-20 [facility] Comment on above: Performed By: #### C MPF, ACBC #### Testing performed at [address] [address] TROPONIN I, HIGH SENSITIVITY on 01-29-2025 TROPONIN I, HIGH SENSITIVITY 3 pg/mL Normal 0-12 [facility] Comment on above: Result Comment: Indeterminant: >12 to 100 pg/mL female >20 to 100 pg/mL male Indicative of myocardial injury. Serial sampling is recommended, a change of greater than or equal to 20 pg/mL is indicative of acute coronary syndrome. Performed By: #### T ROHS #### Testing performed at [facility] [address] [place] [address] CNOVon 01-28-2025 CNOV Normal [facility] GLUCOSE, BLOOD (POC)on 01-28 Glucose [Mass/Vol] 170 mg/dL Abnormal 74 - 99 mg/dL [facility] Comment on above: Glu2: Result Confirm ed Location:[address], [place], [address] The Accu-Chek Inform II glucose meter has [...] Interpretation and review of laboratory results Abnormal [facility] CNPNon 2025 CNPN Normal [facility] Absolute lymphocyte countOrd ered By: Remus Ungfabiola on 01-26-2025 Lymphocytes Auto (Unsp spec) [#/Vol] 1.75 10*3/uL 0.83-4.51 [facility] Absolute neutrophil countOrd ered By: Remus Ungur on 01-26-2025 Neutrophils (Bld) [#/Vol] 7.9 10*3/uL High 2.0-7.7 [facility] Anion gap in Serum or Plasma Ordered By: Remus Ungur on 01-26-2025 Anion gap [Moles/Vol] 19 mmol/L High 5-15 [facility] Automated lymphocyte count a s percentage of total leukocytesOrdered By: Remus Ungur on 01-26-2025 Lymphocytes/100 WBC Auto (Unsp spec) 16.9 % Low 19-41 [facility] BUN/creatinine ratioOrdered By: Remus Ungur on 01-26-2025 Urea nitrogen/Creatinine [Mass ratio] 10.6 mg/mg 10-20 [facility] Basophil percentageOrdered B y: Remus Ungur on 01-26-2025 Basophils/100 WBC (Bld) 0.5 % 0-1 [facility] Bilirubin Test strip Ql (U)O rdered By: Shelia Ortega on 01-26-2025 Bilirubin Ql (U) Negative Negative [facility] Bilirubin, totalOrdered By: Shelia Ortega on 01-26-2025 Bilirubin [Mass/Vol] 0.51 mg/dL 0.00-1.30 [facility] CBC W/Diff, Automatedon 01-08 Absolute Lymph 1.75 X10 3/uL Normal 0.83-4.51 [facility] Comment on above: Performed By: #### Jo KWON, L100.0100 #### [facility] [address] [place], [address] Absolute Neut 7.9 X10 3/uL High 2.0-7.7 [facility] Comment on above: Performed By: #### Jo KWON, L100.0100 #### [facility] [address] [place], [address] Basophils/100 WBC (Bld) 0.5 % Normal 0-1 [facility] Comment on above: Performed By: #### Jo KWON, L100.0100 #### [facility] [address] [place], [address] Eosinophils/100 WBC (Bld) 0.8 % Normal 0-5 [facility] Comment on above: Performed By: #### Jo KWON, L100.0100 #### [facility] [address] [place], [address] Erythrocyte distribution width (RBC) [Ratio] 12.6 % Normal 11.6-14.6 [facility] Comment on above: Performed By: #### Jo KWON, L100.0100 #### [facility] [address] [place], [address] Hematocrit (Bld) [Volume fraction] 37.0 % Normal 37-47 [facility] Comment on above: Performed By: #### Jo KWON, L100.0100 #### [facility] [address] [place], [address] Hemoglobin (Bld) [Mass/Vol] 12.7 g/dL Normal 12.0-15.0 [facility] Comment on above: Performed By: #### Jo KWON, L100.0100 #### [facility] [address] [place], [address] IG% 0.300 Normal 0.0-0.9 [facility] Comment on above: Result Comment: IG% - Immature Granulocytes (promyelocytes, myelocytes and metamyelocytes) > 1% indicates that a LEFT SHIFT is Present. Performed By: #### Jo KWON, L100.0100 #### [facility] [address] [place], [address] Lymphocytes/100 WBC (Bld) 16.9 % Low 19-41 [facility] Comment on above: Performed By: #### Jo KWON, L100.0100 #### [facility] [address] [place], [address] MCH (RBC) [Entitic mass] 28.6 pg Normal 27.0-32.0 [facility] Comment on above: Performed By: #### Jo KWON, L100.0100 #### [facility] [address] [place], [address] MCHC (RBC) [Mass/Vol] 34.3 g/dL Normal 32-36 [facility] Comment on above: Performed By: #### Jo KWON, L100.0100 #### [facility] [address] [place], [address] MCV (RBC) [Entitic vol] 83.3 fL Normal 81-99 [facility] Comment on above: Performed By: #### Jo KWON, L100.0100 #### [facility] [address] [place], [address] Monocytes/100 WBC (Bld) 5.3 % Normal 0-10 [facility] Comment on above: Performed By: #### Jo KWON, L100.0100 #### [facility] [address] [place], [address] Neutrophils/100 WBC (Bld) 76.2 % High 47-70 [facility] Comment on above: Performed By: #### Jo KWON, L100.0100 #### [facility] [address] [place], [address] Nucleated RBC (Bld) [#/Vol] 0 10*3/uL Normal 0-5 [facility] Comment on above: Performed By: #### Jo KWON, L100.0100 #### [facility] [address] [place], [address] Platelet mean volume (Bld) [Entitic vol] 9.6 fL Normal 6.2-12.0 [facility] Comment on above: Performed By: #### Jo KWON, L100.0100 #### [facility] [address] [place], [address] Platelets (Bld) [#/Vol] 335 10*3/uL Normal 150-450 [facility] Comment on above: Performed By: #### Jo KWON, L100.0100 #### [facility] [address] [place], [address] RBC (Bld) [#/Vol] 4.44 10*6/uL Normal 4.2-5.4 [facility] Comment on above: Performed By: #### Jo KWON, L100.0100 #### [facility] [address] [place], [address] RDW SD 38.0 fl Normal 35.1-43.9 [facility] Comment on above: Performed By: #### Jo KWON, L100.0100 #### [facility] [address] [place], [address] WBC (Bld) [#/Vol] 10.3 10*3/uL Normal 4.4-11.0 [facility] Comment on above: Performed By: #### B SHYANN, L100.0100 #### [facility] [address] [place], [address] Carbon dioxide, total [Moles /volume] in Central venous bloodOrdered By: Shelia Ortega on 01-26-2025 CO2 [Moles/Vol] 17.5 mmol/L Low 21.0-32.0 [facility] Chloride assayOrdered By: Re teddy Ortega on 01-26-2025 Chloride [Moles/Vol] 101 mmol/L 98-108 [facility] Comprehensive Metabolic Prof ilon 01-26-2025 Albumin [Mass/Vol] 4.2 g/dL Normal 3.5-5.0 [facility] [place] [facility] Comment on above: Performed By: #### B SHYANN, L100.0100 #### [facility] [address] [place], [address] Albumin/Globulin [Mass ratio] 1.3 {ratio} Normal 0.9-2.4 [facility] Comment on above: Performed By: #### Jo KWON, L100.0100 #### [facility] [address] [place], [address] ALK PHOS 99 U/L Normal 35-104 [facility] Comment on above: Performed By: #### B SHYANN, L100.0100 #### [facility] [address] [place], [address] ALT [Catalytic activity/Vol] 44 U/L High <=34 [facility] Comment on above: Performed By: #### B SHYANN, L100.0100 #### [facility] [address] [place], [address] AST [Catalytic activity/Vol] 25 U/L Normal <=31 [facility] Comment on above: Result Comment: Hemo lysis present, Results??could be affected. ?? Performed By: #### Jo KWON, L100.0100 #### [facility] [address] [place], [address] Bilirubin [Mass/Vol] 0.51 mg/dL Normal 0.00-1.30 [facility] Comment on above: Performed By: #### Jo KWON, L100.0100 #### [facility] [address] [place], [address] BUN/CRE 10.6 RATIO Normal 10-20 [facility] Comment on above: Performed By: #### Jo KWON, L100.0100 #### [facility] [address] [place], [address] Calcium [Mass/Vol] 9.4 mg/dL Normal 7.6-11.0 [facility] Comment on above: Performed By: #### Jo KWON, L100.0100 #### [facility] [address] [place], [address] Chloride [Moles/Vol] 101 mmol/L Normal 98-108 [facility] Comment on above: Performed By: #### Jo KWON, L100.0100 #### [facility] [address] [place], [address] CO2 [Moles/Vol] 17.5 mmol/L Low 21.0-32.0 [facility] Comment on above: Performed By: #### Jo KWON, L100.0100 #### [facility] [address] [place], [address] Creatinine [Mass/Vol] 0.56 mg/dL Low 0.70-1.20 [facility] Comment on above: Performed By: #### Jo KWON, L100.0100 #### [facility] [address] [place], [address] ECRCL 153.13 ml/min Normal 50-250 [facility] Comment on above: Performed By: #### Jo KWON, L100.0100 #### [facility] [address] [place], [address] GAP 19 High 5-15 [facility] Comment on above: Performed By: #### Jo KWON, L100.0100 #### [facility] [address] [place], [address] GFR/1.73 sq M.predicted among non-blacks MDRD (S/P/Bld) [Vol rate/Area] 127 mL/min/{1.73_m2} Normal >60 [facility] Comment on above: Result Comment: mL/m in/1.73m2 CKD-EPI Creatinine Equation (2020) Performed By: #### Jo KWON, L100.0100 #### [facility] [address] [place], [address] Globulin (S) [Mass/Vol] 3.3 g/dL Normal 2.2-4.2 [facility] Comment on above: Performed By: #### Jo KWON, L100.0100 #### [facility] [address] [place], [address] Glucose [Mass/Vol] 198 mg/dL High 70-99 [facility] [place] [facility] Comment on above: Performed By: #### Jo KWON, L100.0100 #### [facility] [address] [place], [address] Potassium [Moles/Vol] 3.6 mmol/L Normal 3.3-5.1 [facility] Comment on above: Result Comment: Hemo lysis present, Results??could be affected. ?? Performed By: #### Jo KWON, L100.0100 #### [facility] [address] [place], [address] Sodium [Moles/Vol] 137 mmol/L Normal 133-145 [facility] Comment on above: Performed By: #### B TS, L100.0100 #### [facility] [address] [place], [place], [address] T PROT 7.5 g/dL Normal 5.9-8.4 [facility] Comment on above: Performed By: #### B TS, L100.0100 #### [facility] [address] [place], [address] Urea nitrogen [Mass/Vol] 6 mg/dL Normal 4-19 [facility] Comment on above: Performed By: #### B TS, L100.0100 #### [facility] [address] [place], [place], [address] Emergency Department Summary on 01-26-2025 Emergency Department Summary [facility] Medical Records Department [address] [place] [address] Emergency Department Summary 01/26/25 MR#: [id number] Acct: [id number] Name: MELISSA BYRNE Rep #: [id number] : 1995 29 From: Shelia Ortega DO [...] or vomit. Patient thought she was having ".. Flu". [facility] Medical History Wears dentures Wears glasses [...] ED: Yes (more content not included)... Normal [facility] Eosinophil percentageOrdered By: Shelia Ortega on 01-26-2025 Eosinophils/100 WBC (Bld) 0.8 % 0-5 [facility] Erythrocyte distribution wid th ratioOrdered By: Shelia Ortega on 01-26-2025 Erythrocyte distribution width (RBC) [Ratio] 12.6 % 11.6-14.6 [facility] Erythrocyte distribution wid th standard deviationOrdered By: Shelia Ortega on 01-26-2025 Erythrocyte distribution width (RBC) [Ratio] 38.0 fl 35.1-43.9 [facility] Glomerular filtration rate ( GFR) estimation/1.73 sq m using serum, plasma, or whole bOrdered By: Shelia Ortega on 01-26-2025 GFR/1.73 sq M.predicted among non-blacks MDRD (S/P/Bld) [Vol rate/Area] 127 mL/min/{1.73_m2} >60 [facility] Comment on above: mL/min/1.73m2 CKD-EP I Creatinine Equation (2020) Hematocrit Auto (Bld) [Volum e fraction]Ordered By: Shelia Ortega on 01-26-2025 Hematocrit (Bld) [Volume fraction] 37.0 % 37-47 [facility] Hemoglobin measurementOrdere d By: Shelia Ortega on 01-26-2025 Hemoglobin (Bld) [Mass/Vol] 12.7 g/dL 12.0-15.0 [facility] Immature granulocytes/100 WB C Auto (Bld)Ordered By: Shelia Ortega 01-26-2025 Immature granulocytes/100 WBC (Bld) 0.300 % 0.0-0.9 [facility] Comment on above: IG% - Immature Granu locytes (promyelocytes, myelocytes and metamyelocytes) > 1% indicates that a LEFT SHIFT is Present. Ketones Test strip Ql (U)Ord ered By: Shelia Ortega on 01-26-2025 Ketones Ql (U) 150 mg/dl Abnormal Negative [facility] Comment on above: CRITICAL VALUE CASILLAS D TO ONIEL BOGGS01/26/252117 Daxa Rangel.RESULTS READ BACK BY SAME. Laboratory - Chemistry and C hemistry - challengeOrdered By: Shelia Ortega on 01-26-2025 AST [Catalytic activity/Vol] 25 U/L <32 [facility] Comment on above: Hemolysis present, R esults could be affected. MCV (mean corpuscular volume ) determinationOrdered By: Shelia Ortega on 01-26-2025 MCV (RBC) [Entitic vol] 83.3 fL 81-99 [facility] Mean corpuscular hemoglobin (MCH) determinationOrdered By: Shelia Ortega 01-26-2025 MCH (RBC) [Entitic mass] 28.6 pg 27.0-32.0 [facility] Mean corpuscular hemoglobin concentration (MCHC) determinationOrdered By: Shelia Ortega on 01-26-2025 MCHC (RBC) [Mass/Vol] 34.3 g/dL 32-36 [facility] Mean platelet volume determi nationOrdered By: Shelia Ortega on 01-26-2025 Platelet mean volume (Bld) [Entitic vol] 9.6 fL 6.2-12.0 [facility] Microscopic analysis of urin e for red blood cells (RBC)Ordered By: Shelia Ortega on 01-26-2025 Microscopic analysis of urine for red blood cells (RBC) 10-25 SEEN /hpf 0-5 [facility] Monocyte percentageOrdered B y: Shelia Ortega on 01-26-2025 Monocytes/100 WBC (Bld) 5.3 % 0-10 [facility] Mucus LM Ql (Urine sed)Order ed By: Shelia Ortega on 01-26-2025 Mucus Ql (Urine sed) 0 SEEN /hpf [facility] Neutrophil percentageOrdered By: Shelia Ortega on 01-26-2025 Neutrophils/100 WBC (Bld) 76.2 % High 47-70 [facility] Nitrite Test strip Ql (U)Ord ered By: Shelia Ortega on 01-26-2025 Nitrite Ql (U) Negative Negative [facility] Nucleated red blood cell per centageOrdered By: Shelia Ortega on 01-26-2025 Nucleated RBC/100 WBC (Bld) [Ratio] 0 % 0-5 [facility] Platelet countOrdered By: Rosina Ortega on 01-26-2025 Platelets (Bld) [#/Vol] 335 10*3/uL 150-450 [facility] Potassium measurement (mass/ volume)Ordered By: Shelia Ortega on 01-26-2025 Potassium (Unsp spec) [Mass/Vol] 3.6 mmol/L 3.3-5.1 [facility] Comment on above: Hemolysis present, R esults could be affected. ,Serum,hCG Quali.on 01-26-2025 HCG, SERUM QUAL Negative Normal [facility] Comment on above: Performed By: #### B TS, L100.0100 #### [facility] [address] [place], [address] Protein Test strip Ql (U)Ord ered By: Shelia Ortega on 01-26-2025 Protein Ql (U) 30 mg/dl High Negative [facility] RBC Auto (Bld) [#/Vol]Ordere d By: Shelia Ortega on 01-26-2025 RBC (Bld) [#/Vol] 4.44 10*6/uL 4.2-5.4 [facility] Serum beta-hCG test, qualita tiveOrdered By: Shelia Ortega on 01-26-2025 Beta HCG ( test) Ql Negative [facility] Serum creatinine measurement (mass/volume)Ordered By: Shelia Ortega on 01-26-2025 Creatinine [Mass/Vol] 0.56 mg/dL Low 0.70-1.20 [facility] Serum globulin measurementOr dered By: Shelia Ortega on 01-26-2025 Globulin (S) [Mass/Vol] 3.3 g/dL 2.2-4.2 [facility] Serum glucose measurement (m ass/volume)Ordered By: Shelia Ortega on 01-26-2025 Glucose [Mass/Vol] 198 mg/dL High 70-99 [facility] Serum or plasma alanine schafer otransferase (ALT) measurementOrdered By: Shelia Ortega on 01-26-2025 ALT [Catalytic activity/Vol] 44 U/L High <35 [facility] Serum or plasma albumin patrick urement (mass/volume)Ordered By: Shelia Ortega on 01-26-2025 Albumin [Mass/Vol] 4.2 g/dL 3.5-5.0 [facility] Serum or plasma albumin/glob ulin mass ratioOrdered By: Shelia Ortega on 01-26-2025 Albumin/Globulin [Mass ratio] 1.3 {ratio} 0.9-2.4 [facility] Serum or plasma alkaline anaid sphatase measurementOrdered By: Shelia Ortega on 01-26-2025 ALP [Catalytic activity/Vol] 99 U/L 35-104 [facility] Serum or plasma calcium patrick urement (mass/volume)Ordered By: Shelia Ortega on 01-26-2025 Calcium [Mass/Vol] 9.4 mg/dL 7.6-11.0 [facility] Serum or plasma urea nitroge n measurement (mass/volume)Ordered By: Remus Ungfabiola on 01-26-2025 Urea nitrogen [Mass/Vol] 6 mg/dL 4-19 [facility] Sodium levelOrdered By: Remu s Ungur on 01-26-2025 Sodium [Moles/Vol] 137 mmol/L 133-145 [facility] Squamous epithelial cells de tection in urine sediment by light microscopyOrdered By: Remus Ungfabiola on 01-26-2025 Epithelial cells.squamous LM Ql (Urine sed) 0-5 SEEN /hpf 5- [facility] Total proteinOrdered By: Rem us Ungur on 01-26-2025 Protein [Mass/Vol] 7.5 g/dL 5.9-8.4 [facility] Urinalysis, Completeon 01-26 EPI,SQUAMOUS 0-5 SEEN Normal 5-10 [facility] Comment on above: Order Comment: SAE CTOR TO SPECIFY Performed By: #### Jo TS, L100.0100 #### [facility] [address] [place], [address] WBC 0-5 SEEN Normal [address] Comment on above: Order Comment: SAE CTOR TO SPECIFY Performed By: #### Jo TS, L100.0100 #### [facility] [address] [place], [address] RBC 10-25 SEEN Normal 0-[address] [place] [address] Comment on above: Order Comment: SAE CTOR TO SPECIFY Performed By: #### B TS, L100.0100 #### [facility] [address] [place], [address] BACTERIA 0 SEEN Normal None Seen [facility] Comment on above: Order Comment: SAE CTOR TO SPECIFY Performed By: #### B TS, L100.0100 #### [facility] [address] [place], [address] Mucus Ql (Urine sed) 0 SEEN Normal [facility] Comment on above: Order Comment: COLLE CTOR TO SPECIFY Performed By: #### B TS, L100.0100 #### [facility] [address] [place], [place], [address] Urine clarityOrdered By: Rem us Ortega on 01-26-2025 Clarity (U) Sl. Cloudy Clear [facility] Urine color determinationOrd ered By: Shelia Ortega on 01-26-2025 Color (U) Yellow Yellow [facility] Urine glucose detectionOrder ed By: Remus Ortega on 01-26-2025 Glucose Ql (U) Normal mg/dl Normal [facility] Urine leukocyte esterase det ection by dipstickOrdered By: Shelia Ortega on 01-26-2025 Leukocyte esterase Test strip Ql (U) 25 /ul High Negative [facility] Urine pHOrdered By: Shelia Un gur on 01-26-2025 pH (U) 6.0 [pH] 5.0 - 8.0 [facility] Urine sediment bacteria coun t by microscopy (number/high power field)Ordered By: Shelia Ortega on 01-26-2025 Bacteria LM.HPF (Urine sed) [#/Area] 0 /[HPF] None Seen [facility] Urine specific gravity measu rementOrdered By: Shelia Ortega on 01-26-2025 Specific gravity (U) [Rel density] 1.025 1.002-1.030 [facility] Urine urobilinogen measureme ntOrdered By: Shelia Ortega on 01-26-2025 Urobilinogen Ql (U) Normal mg/dl Normal [facility] White blood cell (WBC) count Ordered By: Remus Ortega on 01-26-2025 WBC (Bld) [#/Vol] 10.3 10*3/uL 4.4-11.0 [facility] White blood cell countOrdere d By: Shelia Ortega on 01-26-2025 White blood cell count 0-5 SEEN /hpf 0-5 [facility] H AND P Exam - OB/GYNon 01-07 H&P Exam - MOTION PICTURE COMMENTATOR [facility] Medical Records Department [address] [place] [address] H P Exam - MOTION PICTURE COMMENTATOR 01/25/25 1317 MR#: [id number] Acct: [id number] Name: MELISSA BYRNE Rep #: [id number] : 1995 29 From: Whit Patel MD PCP: Dr. Jamari Byrne MD Status:PRE SD Location: SDC History and Physical Date of [...] PAST MEDICAL HISTORY Diagnosis Date ??? Asthma ([facility]) ??? Bipolar ??? H/O macrosomia in in prior , currently ([facility]) 05/07/2024 ??? Herpes simplex type 2 (HSV-2) infection affecting , antepartum, unspecified trimester ([facility]) 04/19/2024 ??? Hyperlipidemia ??? LGA (large for gestational age) infant ([facility]) 12/23/2016 12/23/16 - >95% ??? Polyhydramnios ([facility]) 01/01/2017 ??? Pre-existing type 2 diabetes mellitus in in first trimester ([facility]) 06/15/2024 First trimester Hgb A1c 10.5%, now follows with Dr. Guillermo ??? Recurrent UTI ??? Type 2 diabetes mellitus ([facility]) PAST SURGICAL HISTORY PAST SURGICAL HISTORY Procedure Laterality Date ??? CHOLECYSTECTOMY ??? D C, DIAG AND/OR THERAPEUTIC 2017 CURRENT MEDICATIONS Current Outpatient Medications Medication Sig [...] a day. 60 tablet 3 ??? Insulin [place], Disposable, (BD ULTRAFINE III MINI PEN) 31 gauge x 3/16" 4 TIMES/DAY 200 each 3 ??? lancets (TMS DELICA PLUS LANCET) 30 gauge Use with blood glucose test four times a day. Insulin Dep? Yes 100 Each 11 ??? blood sugar diagnostic (TMS VERIO TEST STRIPS) test strip Use as instructed - TEST BLOOD SUGARS 4 TIMES DAILY 150 Each 11 ??? Blood-Glucose Meter (TMS VERIO FLEX METER) Use to check blood [...] on risks/bene (more content not included)... Normal [facility] CBC W Auto Differential pane l (Bld)on 01-24-2025 Basophils (Bld) [#/Vol] 0.05 10*3/uL [facility] Basophils/100 WBC (Bld) 0.6 % 0.0 - 2.0 % [facility] Eosinophils (Bld) [#/Vol] 0.09 10*3/uL [facility] Eosinophils/100 WBC (Bld) 1.1 % 0.0 - 6.0 % [facility] Erythrocyte distribution width (RBC) [Ratio] 12.6 % 11.5 - 14.5 % [facility] Hematocrit (Bld) [Volume fraction] 37.1 % 36.0 - 46.0 % [facility] Hemoglobin (Bld) [Mass/Vol] 12.6 g/dL 12.0 - 16.0 g/dL [facility] Immature granulocytes (Bld) [#/Vol] 0.03 10*3/uL [facility] Immature granulocytes/100 WBC (Bld) 0.4 % 0.0 - 0.9 % [facility] Comment on above: Immature Granulocyte Count (IG) includes promyelocytes, myelocytes and metamyelocytes but does not include bands. Percent differential counts (%) should be interpreted in the context of the absolute cell counts (cells/UL). Lymphocytes (Bld) [#/Vol] 1.80 10*3/uL [facility] Lymphocytes/100 WBC (Bld) 21.4 % 13.0 - 44.0 % [facility] MCH (RBC) [Entitic mass] 28.2 pg 26.0 - 34.0 pg [facility] MCHC (RBC) [Mass/Vol] 34.0 g/dL 32.0 - 36.0 g/dL [facility] MCV (RBC) [Entitic vol] 83 fL 80 - 100 fL [facility] Monocytes (Bld) [#/Vol] 0.48 10*3/uL [facility] Monocytes/100 WBC (Bld) 5.7 % 2.0 - 10.0 % [facility] Neutrophils (Bld) [#/Vol] 5.95 10*3/uL [facility] Comment on above: Percent differential counts (%) should be interpreted in the context of the absolute cell counts (cells/uL). Neutrophils/100 WBC (Bld) 70.8 % 40.0 - 80.0 % [facility] Nucleated RBC/100 WBC (Bld) [Ratio] 0.0 % [facility] Platelets (Bld) [#/Vol] 326 10*3/uL [facility] RBC (Bld) [#/Vol] 4.47 10*6/uL [facility] WBC (Bld) [#/Vol] 8.4 10*3/uL [facility] Basophils (Bld) [#/Vol] 0.05 x10*3/uL Normal 0.00-0.10 [facility] Comment on above: Performed By: #### 5 8077-9 #### JACQUELYN LOPEZ ([id number]) [facility] ([facility]) [address] [place] [address] Basophils/100 WBC (Bld) 0.6 % Normal 0.0-2.0 [facility] Comment on above: Performed By: #### 5 8077-9 #### JACQUELYN LOPEZ ([id number]) [facility] ([facility]) [address] [place] [address] Eosinophils (Bld) [#/Vol] 0.09 x10*3/uL Normal 0.00-0.70 [facility] Comment on above: Performed By: #### 5 8077-9 #### JACQUELYN LOPEZ ([id number]) [facility] ([facility]) [address] [place] [address] Eosinophils/100 WBC (Bld) 1.1 % Normal 0.0-6.0 [facility] Comment on above: Performed By: #### 5 8077-9 #### JACQUELYN LOPEZ ([id number]) [facility] ([facility]) [address] [place] [address] Erythrocyte distribution width (RBC) [Ratio] 12.6 % Normal 11.5-14.5 [facility] Comment on above: Performed By: #### 5 8077-9 #### JACQUELYN LOPEZ ([id number]) [facility] ([facility]) [address] [place], [place] [id number] Hematocrit (Bld) [Volume fraction] 37.1 % Normal 36.0-46.0 [facility] Comment on above: Performed By: #### 5 8077-9 #### JACQUELYN LOPEZ ([id number]) [facility] ([facility]) [address] [place] [address] Hemoglobin (Bld) [Mass/Vol] 12.6 g/dL Normal 12.0-16.0 [facility] Comment on above: Performed By: #### 5 8077-9 #### JACQUELYN LOPEZ ([id number]) [facility] ([facility]) [address] [place] [address] Immature granulocytes (Bld) [#/Vol] 0.03 x10*3/uL Normal 0.00-0.70 [facility] Comment on above: Performed By: #### 5 8077-9 #### JACQUELYN LOPEZ ([id number]) [facility] ([facility]) [address] [place] [address] Immature granulocytes/100 WBC (Bld) 0.4 % Normal 0.0-0.9 [facility] Comment on above: Result Comment: Kaela ture Granulocyte Count (IG) includes promyelocytes, myelocytes and metamyelocytes but does not include bands. Percent differential counts (%) should be interpreted in the context of the absolute cell counts (cells/UL). Performed By: #### 5 8077-9 #### JACQUELYN LOPEZ ([id number]) [facility] ([facility]) [address] [place] [address] Lymphocytes (Bld) [#/Vol] 1.80 x10*3/uL Normal 1.20-4.80 [facility] Comment on above: Performed By: #### 5 8077-9 #### JACQUELYN LOPEZ ([id number]) [facility] ([facility]) [address] [place], [place] [id number] Lymphocytes/100 WBC (Bld) 21.4 % Normal 13.0-44.0 [facility] [place] Comment on above: Performed By: #### 5 8077-9 #### JACQUELYN LOPEZ ([id number]) [facility] ([facility]) [address] [place] [address] 02056 MCH (RBC) [Entitic mass] 28.2 pg Normal 26.0-34.0 [facility] [place] Comment on above: Performed By: #### 5 8077-9 #### JACQUELYN LOPEZ ([id number]) [facility] ([facility]) [address] [place] [address] 74072 MCHC (RBC) [Mass/Vol] 34.0 g/dL Normal 32.0-36.0 [facility] Comment on above: Performed By: #### 5 8077-9 #### JACQUELYN LOPEZ ([id number]) [facility] ([facility]) [address] [place] [address] 91593 MCV (RBC) [Entitic vol] 83 fL Normal 80-100 [facility] [place] Comment on above: Performed By: #### 5 8077-9 #### JACQUELYN LOPEZ ([id number]) [facility] ([facility]) [address] [place] [address] 29570 Monocytes (Bld) [#/Vol] 0.48 x10*3/uL Normal 0.10-1.00 [facility] [place] Comment on above: Performed By: #### 5 8077-9 #### JACQUELYN LOPEZ ([id number]) [facility] ([facility]) [address] [place] [address] 15456 Monocytes/100 WBC (Bld) 5.7 % Normal 2.0-10.0 [facility] [place] Comment on above: Performed By: #### 5 8077-9 #### JACQUELYN LOPEZ ([id number]) [facility] ([facility]) [address] [place] [address] 90979 Neutrophils (Bld) [#/Vol] 5.95 x10*3/uL Normal 1.20-7.70 [facility] [place] Comment on above: Result Comment: Perc ent differential counts (%) should be interpreted in the context of the absolute cell counts (cells/uL). Performed By: #### 5 8077-9 #### JACQUELYN LOPEZ ([id number]) [facility] ([facility]) [address] [place] [address] 10627 Neutrophils/100 WBC (Bld) 70.8 % Normal 40.0-80.0 [facility] [place] Comment on above: Performed By: #### 5 8077-9 #### JACQUELYN LOPEZ ([id number]) [facility] ([facility]) [address] [place] [address] 99459 Nucleated RBC/100 WBC (Bld) [Ratio] 0.0 /100 WBCs Normal 0.0-0.0 [facility] [place] Comment on above: Performed By: #### 5 8077-9 #### JACQUELYN LOPEZ ([id number]) [facility] ([facility]) [address] [place] [address] 97292 Platelets (Bld) [#/Vol] 326 x10*3/uL Normal 150-450 [facility] [place] Comment on above: Performed By: #### 5 8077-9 #### JAQCUELYN LOPEZ ([id number]) [facility] ([facility]) [address] [place] [address] 83276 RBC (Bld) [#/Vol] 4.47 x10*6/uL Normal 4.00-5.20 [facility] Comment on above: Performed By: #### 5 8077-9 #### JACQUELYN LOPEZ ([id number]) [facility] ([facility]) [address] [place] [address] 71433 WBC (Bld) [#/Vol] 8.4 x10*3/uL Normal 4.4-11.3 [facility] Comment on above: Performed By: #### 5 8077-9 #### JACQUELYN LOPEZ ([id number]) [facility] ([facility]) [address] [place] [address] Choriogonadotropin.beta subu niton 01-24-2025 HCG.beta subunit Qn m[IU]/mL Normal <5 [facility] Comment on above: Order Comment: Total HCG measurement is performed using the [place] Access Immunoassay which detects intact HCG and free beta HCG subunit. This test is not indicated for use as a tumor marker. HCG testing is performed using a different test methodology at [facility] than other [facility]. Direct result comparison should only be made within the same method. Performed By: #### 5 3315-8 #### JACQUELYN LOPEZ ([id number]) [facility] ([facility]) [address] [place], [place] [address] Comprehensive metabolic 2000 panelon 01-24-2025 Albumin BCP dye [Mass/Vol] 4.2 g/dL 3.4 - 5.0 g/dL [facility] ALP [Catalytic activity/Vol] 81 U/L 33 - 110 U/L [facility] ALT With P-5'-P [Catalytic activity/Vol] 39 U/L 7 - 45 U/L [facility] Comment on above: Patients treated wit h Sulfasalazine may generate falsely decreased results for ALT. Anion gap [Moles/Vol] 13 mmol/L 10 - 2 0 mmol/L [facility] AST With P-5'-P [Catalytic activity/Vol] 19 U/L 9 - 39 U/L [facility] Bilirubin [Mass/Vol] 0.7 mg/dL 0.0 - 1 .2 mg/dL [facility] Calcium [Mass/Vol] 8.8 mg/dL 8.6 - 10. 3 mg/dL [facility] Chloride [Moles/Vol] 105 mmol/L 98 - 10 7 mmol/L [facility] CO2 [Moles/Vol] 23 mmol/L 21 - 32 mmol/L [facility] Creatinine [Mass/Vol] 0.46 mg/dL Low 0.50 - 1.05 mg/dL [facility] eGFR - PINF [facility] Comment on above: Calculations of ascencion mated GFR are performed using the 2020 CKD-EPI Study Refit equation without the race variable for the IDMS-Traceable creatinine methods. https://jasn.asnjournals.org/content//ASN.832517 7440 Glucose [Mass/Vol] 199 mg/dL High 74 - 99 mg/dL [facility] Potassium [Moles/Vol] 3.5 mmol/L 3.5 - 5.3 mmol/L [facility] Protein [Mass/Vol] 7.3 g/dL 6.4 - 8.2 g/dL [facility] Sodium [Moles/Vol] 137 mmol/L 136 - 145 mmol/L [facility] Urea nitrogen [Mass/Vol] 6 mg/dL 6 - 23 mg/dL [facility] Albumin BCP dye [Mass/Vol] 4.2 g/dL Normal 3.4-5.0 [facility] [place] Comment on above: Performed By: #### 5 8077-9 #### JACQUELYN LOPEZ ([id number]) [facility] ([facility]) [address] [place] [address] ALP [Catalytic activity/Vol] 81 U/L Normal 33-110 [facility] [place] Comment on above: Performed By: #### 5 8077-9 #### JACQUELYN LOPEZ ([id number]) [facility] ([facility]) [address] [place] [address] ALT With P-5'-P [Catalytic activity/Vol] 39 U/L Normal 7-45 [facility] [place] Comment on above: Result Comment: Shantal ents treated with Sulfasalazine may generate falsely decreased results for ALT. Performed By: #### 5 8077-9 #### JACQUELYN LOPEZ ([id number]) [facility] ([facility]) [address] [place] [address] Anion gap [Moles/Vol] 13 mmol/L Normal 10-20 [facility] Comment on above: Performed By: #### 5 8077-9 #### JACQUELYN LOPEZ ([id number]) [facility] ([facility]) [address] [place] [address] 10731 AST With P-5'-P [Catalytic activity/Vol] 19 U/L Normal 9-39 [facility] [place] Comment on above: Performed By: #### 5 8077-9 #### JACQUELYN LOPEZ ([id number]) [facility] ([facility]) [address] [place] [address] 01181 Bilirubin [Mass/Vol] 0.7 mg/dL Normal 0.0-1.2 [facility] Comment on above: Performed By: #### 5 8077-9 #### JACQUELYN LOPEZ ([id number]) [facility] ([facility]) [address] [place] [address] 77108 Calcium [Mass/Vol] 8.8 mg/dL Normal 8.6-10.3 [facility] Comment on above: Performed By: #### 5 8077-9 #### JACQUELYN LOPEZ ([id number]) [facility] ([facility]) [facility] [place] [address] Chloride [Moles/Vol] 105 mmol/L Normal 98-107 [facility] Comment on above: Performed By: #### 5 8077-9 #### JACQUELYN LOPEZ ([id number]) [facility] ([facility]) [address] [place] [address] 40751 CO2 [Moles/Vol] 23 mmol/L Normal 21-32 [facility] Comment on above: Performed By: #### 5 8077-9 #### JACQUELYN LOPEZ ([id number]) [facility] ([facility]) [address] [place] [address] 96565 Creatinine [Mass/Vol] 0.46 mg/dL Low 0.50-1.05 [facility] Comment on above: Performed By: #### 5 8077-9 #### JACQUELYN LOPEZ ([id number]) [facility] ([facility]) [address] [place], [place] [address] Glomerular filtration rate >90 Normal >60 [facility] [place] Comment on above: Result Comment: Calc ulations of estimated GFR are performed using the 2020 CKD-EPI Study Refit equation without the race variable for the IDMS-Traceable creatinine methods. https://jasn.asnjournals.org/content/early//ASN.442646 3152 Performed By: #### 5 8077-9 #### JACQUELYN LOPEZ ([id number]) [facility] ([facility]) [address] [place], [place] [address] Glucose [Mass/Vol] 199 mg/dL High 74-99 [facility] Comment on above: Performed By: #### 5 8077-9 #### JACQUELYN LOPEZ ([id number]) [facility] ([facility]) [address] [place] [address] 22336 Potassium [Moles/Vol] 3.5 mmol/L Normal 3.5-5.3 [facility] Comment on above: Performed By: #### 5 8077-9 #### JACQUELYN LOPEZ ([id number]) [facility] ([facility]) [address] [place] [address] 41487 Protein [Mass/Vol] 7.3 g/dL Normal 6.4-8.2 [facility] Comment on above: Performed By: #### 5 8077-9 #### JACQUELYN LOPEZ ([id number]) [facility] ([facility]) [address] [place] [address] 43805 Sodium [Moles/Vol] 137 mmol/L Normal 136-145 [facility] Comment on above: Performed By: #### 5 8077-9 #### JACQUELYN LOPEZ ([id number]) [facility] ([facility]) [address] [place] [address] 86934 Urea nitrogen [Mass/Vol] 6 mg/dL Normal 6-23 [facility] [place] Comment on above: Performed By: #### 5 8077-9 #### JACQUELYN LOPEZ ([id number]) [facility] ([facility]) [facility] [place] [address] D-Dimer, VTE Exclusionon Fibrin D-dimer FEU (PPP) [Mass/Vol] 456 NINF [facility] ECG 12-LEADon 01-24-2025 ECG 12-LEAD Ventricular Rate 102 Atrial Rate 102 P-R Interval 142 QRS Duration 84 Q-T Interval 378 QTC Calculation(Bazett) 492 P Russell 54 R Russell 60 T Russell -17 QRS Count 17 Q Onset 219 P Onset 148 P Offset 196 T Offset 408 QTC Fredericia 451 Diagnosis Sinus tachycardia Nonspecific ST and T wave abnormality Abnormal ECG No previous ECGs available See ED provider note for full interpretation and clinical correlation Confirmed by Angy Lynne ([id number]) on 01/28/2025 3:15:20 PM Normal [facility] Fibrin D-dimeron 01-24-2025 Fibrin D-dimer FEU (PPP) [Mass/Vol] 456 ng/mL FEU Normal <=500 [facility] [place] Comment on above: Order Comment: OVER is reported when the result is greater than the clinically reportable range. Performed By: #### 5 8077-9 #### JACQUELYN LOPEZ ([id number]) [facility] ([facility]) [address] [place] [address] 22834 Fibrin D-dimer FEU (PPP) [Ma ss/Vol]on 01-24-2025 Interpretation and review of laboratory results Normal [facility] The VTE Exclusion D-Dimer assay is reported in ng/mL Fibrinogen Equivalent Units (FEU). Per second shift supervisor's instructions for use, a value of less [...] assessment model for DVT or PE exclusion.) [facility] HCG.beta subunit Qnon 2024 Total HCG measuremen t is performed using the [place] Access Immunoassay which detects intact HCG and free beta HCG subunit. This test is not indicated for use as a tumor marker. HCG testing is performed using a different test methodology at [facility] than other [facility]. Direct result comparison should only be made within the same method. [facility] Magnesiumon 01-24-2025 Magnesium [Mass/Vol] 1.93 mg/dL 1.60 - 2.40 mg/dL [facility] Magnesium [Mass/Vol] 1.93 mg/dL Normal 1.60-2.40 [facility] Comment on above: Performed By: #### 5 8077-9 #### VALLADARES JOHN ([id number]) [facility] ([facility]) [address] [place] [address] Magnesium [Mass/Vol]on 01-24 Interpretation and review of laboratory results Normal [facility] No Panel Informationon 01-24 Interpretation and review of laboratory results Normal [facility] Interpretation and review of laboratory results Abnormal [facility] Tropinin I.cardiac panel Hig h sensitivity methodon 01-24-2025 Interpretation and review of laboratory results Normal [facility] Less than 99th percentile of [...] performed using a different testing methodology at [facility] than at other [facility]. Direct result comparisons should only be made within the same method. [facility] Less than 99th percentile of normal range [...] performed using a different testing methodology at [facility] than at other [facility]. Direct result comparisons should only be made within the same method. [facility] Troponin I, High Sensitivity , Initialon 01-24-2025 Tropinin I.cardiac panel High sensitivity method ng/L 0 - 13 ng/L [facility] Troponin I.cardiac panelon 0 01-24-2025 Tropinin I.cardiac panel High sensitivity method <3 Normal 0-13 [facility] Comment on above: Order Comment: Less than [...] is performed using a differenttesting methodology at [facility] Direct result comparisons should onlybe made within the same method. Performed By: #### 5 3315-8 #### VALLADARES JOHN ([id number]) [facility] ([facility]) [address] [place] [address] Tropinin I.cardiac panel High sensitivity method <3 Normal 0-13 [facility] [place] Comment on above: Order Comment: Less than [...] is performed using a differenttesting methodology at [facility] than at [facility]. Direct result comparisons should onlybe made within the same method. Performed By: #### 5 3315-8 #### VALLADARES JOHN ([id number]) [facility] ([facility]) [address] [place] [address] Troponin, High Sensitivity, 1 Houron 01-24-2025 Tropinin I.cardiac panel High sensitivity method ng/L 0 - 13 ng/L [facility] Urinalysis complete W Reflex Culture panel (U)on 01-24-2025 Appearance (U) Clear Clear [facility] Bacteria Auto (Urine sed) [#/Area] 1+ Abnormal NONE SEEN /HPF [facility] Bilirubin (U) [Mass/Vol] Negative NEGATIVE mg/dL [facility] Color (U) Colorless Abnormal Light-Yellow , Yellow, Dark-Yellow [facility] Epithelial cells.squamous Auto (Urine sed) [#/Area] 1-9 (SPARSE) Reference range not established. /HPF [facility] Glucose Auto test strip (U) [Mass/Vol] Normal Normal mg/dL [facility] Ketones (U) [Mass/Vol] 10 (1+) Abnormal NEGATIVE mg/dL [facility] Leukocyte esterase Auto test strip Ql (U) Negative NEGATIVE [facility] Nitrite Auto test strip Ql (U) Negative NEGATIVE [facility] pH (U) 6.5 [pH] 5.0, 5.5, 6.0, 6.5, 7.0, 7.5, 8.0 [facility] Protein (U) [Mass/Vol] Negative NEGATIVE, 10 (TRACE), 20 (TRACE) mg/dL [facility] RBC (U) [#/Vol] OVER (3+) Abnormal NEGATIVE mg/dL [facility] RBC Auto (Urine sed) [#/Area] >20 Abnormal NONE, 1-2, 3-5 /HPF [facility] Specific gravity (U) [Rel density] 1.004 Abnormal 1.005 - 1.035 [facility] Urobilinogen (U) [Mass/Vol] Normal Normal mg/dL [facility] WBC Auto (Urine sed) [#/Area] 1-5 1-5, NONE /HPF [facility] OVER is reported whe n the result is greater than the clinically reportable range. [facility] Appearance (U) Clear Normal Clear [facility] Comment on above: Order Comment: OVER is reported when the result is greater than the clinically reportable range. Performed By: #### 5 8077-9 #### JACQUELYN LOPEZ ([id number]) [facility] ([facility]) [address] [place] [address] Bacteria Auto (Urine sed) [#/Area] 1+ /HPF Abnormal NONE SEEN [facility] Comment on above: Performed By: #### 5 8077-9 #### JACQUELYN LOPEZ ([id number]) [facility] ([facility]) [address] [place] [address] 12753 Bilirubin (U) [Mass/Vol] Negative Normal NEGATIVE [facility] Comment on above: Order Comment: OVER is reported when the result is greater than the clinically reportable range. Performed By: #### 5 8077-9 #### JACQUELYN LOPEZ ([id number]) [facility] ([facility]) [address] [place] [address] 22286 Color (U) Colorless Normal Light-Yellow , Yellow, Dark-Yellow [facility] Comment on above: Order Comment: OVER is reported when the result is greater than the clinically reportable range. Performed By: #### 5 8077-9 #### JACQUELYN LOPEZ ([id number]) [facility] ([facility]) [address] [place] [address] Epithelial cells.squamous Auto (Urine sed) [#/Area] 1-9 (SPARSE) Normal Reference range not established. [facility] [place] Comment on above: Performed By: #### 5 8077-9 #### JACQUELYN LOPEZ ([id number]) [facility] ([facility]) [address] [place] [address] Glucose Auto test strip (U) [Mass/Vol] Normal Normal Normal [facility] [place] Comment on above: Order Comment: OVER is reported when the result is greater than the clinically reportable range. Performed By: #### 5 8077-9 #### JACQUELYN LOPEZ ([id number]) [facility] ([facility]) [address] [place] [address] Ketones (U) [Mass/Vol] 10 (1+) Abnormal NEGATIVE [facility] [place] Comment on above: Order Comment: OVER is reported when the result is greater than the clinically reportable range. Performed By: #### 5 8077-9 #### JACQUELYN LOPEZ ([id number]) [facility] ([facility]) [address] [place] [address] Leukocyte esterase Auto test strip Ql (U) Negative Normal NEGATIVE [facility] [place] Comment on above: Order Comment: OVER is reported when the result is greater than the clinically reportable range. Performed By: #### 5 8077-9 #### JACQUELYN LOPEZ ([id number]) [facility] ([facility]) [address] [place], [place] [address] Nitrite Auto test strip Ql (U) Negative Normal NEGATIVE [facility] Comment on above: Order Comment: OVER is reported when the result is greater than the clinically reportable range. Performed By: #### 5 8077-9 #### JACQUELYN LOPEZ ([id number]) [facility] ([facility]) [address] [place] [address] pH (U) 6.5 [pH] Normal 5.0, 5.5, 6.0, 6.5, 7.0, 7.5, 8.0 [facility] [place] Comment on above: Order Comment: OVER is reported when the result is greater than the clinically reportable range. Performed By: #### 5 8077-9 #### JACQUELYN LOPEZ ([id number]) [facility] ([facility]) [address] [place] [address] 93380 Protein (U) [Mass/Vol] Negative Normal NEGATIVE, 10 (TRACE), 20 (TRACE) [facility] Comment on above: Order Comment: OVER is reported when the result is greater than the clinically reportable range. Performed By: #### 5 8077-9 #### JACQUELYN LOPEZ ([id number]) [facility] ([facility]) [address] [place] [address] 02830 RBC (U) [#/Vol] OVER (3+) Abnormal NEGATIVE [facility] Comment on above: Order Comment: OVER is reported when the result is greater than the clinically reportable range. Performed By: #### 5 8077-9 #### JACQUELYN LOPEZ ([id number]) [facility] ([facility]) [address] [place] [address] RBC Auto (Urine sed) [#/Area] >20 Abnormal NONE, 1-2, 3-5 [facility] Comment on above: Performed By: #### 5 8077-9 #### JACQUELYN LOPEZ ([id number]) [facility] ([facility]) [address] [place] [address] Specific gravity (U) [Rel density] 1.004 Normal 1.005-1.035 [facility] Comment on above: Order Comment: OVER is reported when the result is greater than the clinically reportable range. Performed By: #### 5 8077-9 #### JACQUELYN LOPEZ ([id number]) [facility] ([facility]) [address] [place] [address] 14768 Urobilinogen (U) [Mass/Vol] Normal Normal Normal [facility] Comment on above: Order Comment: OVER is reported when the result is greater than the clinically reportable range. Performed By: #### 5 8077-9 #### JACQUELYN LOPEZ ([id number]) [facility] ([facility]) [address] [place] [address] WBC Auto (Urine sed) [#/Area] 1-5 Normal 1-5, NONE [facility] Comment on above: Performed By: #### 5 8077-9 #### VALLADARES JOHN ([id number]) [facility] ([facility]) [address] [place] [address] XR CHEST 1 VIEWon 01-24-2025 XR CHEST 1 VIEW Interpreted By: Milly Juarez, STUDY: XR CHEST 1 VIEW; 01/24/2025 2:30 pm INDICATION: CLINICAL INFORMATION: Signs/Symptoms:Chest Pain. COMPARISON: 07/01/2024 ACCESSION NUMBER(S): [id number] ORDERING CLINICIAN: TY SHANNON TECHNIQUE: Portable chest one view. FINDINGS: The cardiac size is indeterminate in view of the AP projection. No infiltrates or effusions are identified. IMPRESSION: No acute pathologic findings are identified. There is no interval change when compared to the previous examination. MACRO: none Signed by: Milly Juarez 01/24/2025 2:56 PM Dictation workstation: [id number] Normal [facility] XR Chest Single viewon 01-24 No acute pathologic findings are identified. There is no interval change when compared to the previous examination. MACRO: none Signed by: Milly Juarez 01/24/2025 2:56 PM Dictation workstation: [id number] MMODAL Interpreted By: Milly Juarez, STUDY: XR CHEST 1 VIEW; 01/24/2025 2:30 pm INDICATION: CLINICAL INFORMATION: Signs/Symptoms:Chest Pain. COMPARISON: 07/01/2024 ACCESSION NUMBER(S): [id number] ORDERING CLINICIAN: TY SHANNON TECHNIQUE: Portable chest one view. FINDINGS: The cardiac size is indeterminate in view of the AP projection. No infiltrates or effusions are identified. [facility] Milly Juarez MD - 01/24/2025 Interpreted By: Milly Juarez, STUDY: XR CHEST 1 VIEW; 01/24/2025 2:30 pm INDICATION: CLINICAL INFORMATION: Signs/Symptoms:Chest Pain. COMPARISON: 07/01/2024 ACCESSION NUMBER(S): [id number] ORDERING CLINICIAN: TY SHANNON TECHNIQUE: Portable chest one view. FINDINGS: The cardiac size is indeterminate in view of the AP projection. No infiltrates or effusions are identified. IMPRESSION: No acute pathologic findings are identified. There is no interval change when compared to the previous examination. MACRO: none Signed by: Milly Juarez 01/24/2025 2:56 PM Dictation workstation: [id number] [facility] Work Phone: Radiology Study observation (narrative) [facility] Work Phone: XR Chest Single viewOrdered By: Milly Juarez on 01-24-2025 [facility] Work Phone: hCG, quantitative, on 01-24-2025 HCG.beta subunit Qn NINF [facility] Absolute lymphocyte countOrd ered By: Ian Rocha on 01-23-2025 Lymphocytes Auto (Unsp spec) [#/Vol] 2.24 10*3/uL 0.83-4.51 [facility] Absolute neutrophil countOrd ered By: Ian Rocha on 01-23-2025 Neutrophils (Bld) [#/Vol] 4.6 10*3/uL 2.0-7.7 [facility] Anion gap in Serum or Plasma Ordered By: Ian Rocha on 01-23-2025 Anion gap [Moles/Vol] 14 mmol/L 5-15 [facility] Automated lymphocyte count a s percentage of total leukocytesOrdered By: Ian Rocha on 01-23-2025 Lymphocytes/100 WBC Auto (Unsp spec) 29.4 % 19-41 [facility] BUN/creatinine ratioOrdered By: Ian Rocha on 01-23-2025 Urea nitrogen/Creatinine [Mass ratio] 18.5 mg/mg 10- [facility] Basic Metabolic Profile (BMP )on 01-23-2025 BUN/CRE 18.5 RATIO Normal - [facility] Comment on above: Performed By: #### L 100.0100, L500.2500 #### [facility] [address] [place], [address] Calcium [Mass/Vol] 9.2 mg/dL Normal 7.6-11.0 [facility] Comment on above: Performed By: #### L 100.0100, L500.2500 #### [facility] [address] [place], [address] Chloride [Moles/Vol] 102 mmol/L Normal 98-108 [facility] Comment on above: Performed By: #### L 100.0100, L500.2500 #### [facility] [address] [place], [address] CO2 [Moles/Vol] 21.5 mmol/L Normal 21.0-32.0 [facility] Comment on above: Performed By: #### L 100.0100, L500.2500 #### [facility] [address] [place], [address] Creatinine [Mass/Vol] 0.55 mg/dL Low 0.70-1.20 [facility] Comment on above: Performed By: #### L 100.0100, L500.2500 #### [facility] [address] [place], [address] ECRCL 158.08 ml/min Normal 50-250 [facility] Comment on above: Performed By: #### L 100.0100, L500.2500 #### [facility] [address] [place], [address] GAP 14 Normal 5-15 [facility] Comment on above: Performed By: #### L 100.0100, L500.2500 #### [facility] [address] [place], [address] GFR/1.73 sq M.predicted among non-blacks MDRD (S/P/Bld) [Vol rate/Area] 127 mL/min/{1.73_m2} Normal >60 [facility] Comment on above: Result Comment: mL/m in/1.73m2 CKD-EPI Creatinine Equation (2020) Performed By: #### L 100.0100, L500.2500 #### [facility] [address] [place], [address] Glucose [Mass/Vol] 229 mg/dL High 70-99 [facility] Comment on above: Performed By: #### L 100.0100, L500.2500 #### [facility] [address] [place], [address] Potassium [Moles/Vol] 3.4 mmol/L Normal 3.3-5.1 [facility] Comment on above: Performed By: #### L 100.0100, L500.2500 #### [facility] [address] [place], [address] Sodium [Moles/Vol] 138 mmol/L Normal 133-145 [facility] Comment on above: Performed By: #### L 100.0100, L500.2500 #### [facility] [address] [place], [address] Urea nitrogen [Mass/Vol] 10 mg/dL Normal 4-19 [facility] Comment on above: Performed By: #### L 100.0100, L500.2500 #### [facility] [address] [place], [address] Basophil percentageOrdered B y: Ian Rocha on 01-23-2025 Basophils/100 WBC (Bld) 0.8 % 0-1 [facility] CBC W/Diff, Automatedon 01-07 Absolute Lymph 2.24 X10 3/uL Normal 0.83-4.51 [facility] Comment on above: Performed By: #### L 100.0100, L500.2500 #### [facility] [address] [place], [address] Absolute Neut 4.6 X10 3/uL Normal 2.0-7.7 [facility] Comment on above: Performed By: #### L 100.0100, L500.2500 #### [facility] [address] [place], [address] Basophils/100 WBC (Bld) 0.8 % Normal 0-1 [facility] Comment on above: Performed By: #### L 100.0100, L500.2500 #### [facility] [address] [place], [address] Eosinophils/100 WBC (Bld) 2.6 % Normal 0-5 [facility] Comment on above: Performed By: #### L 100.0100, L500.2500 #### [facility] [address] [place], [address] Erythrocyte distribution width (RBC) [Ratio] 12.5 % Normal 11.6-14.6 [facility] Comment on above: Performed By: #### L 100.0100, L500.2500 #### [facility] [address] [place], [address] Hematocrit (Bld) [Volume fraction] 37.7 % Normal 37-47 [facility] Comment on above: Performed By: #### L 100.0100, L500.2500 #### [facility] [address] [place], [address] Hemoglobin (Bld) [Mass/Vol] 13.0 g/dL Normal 12.0-15.0 [facility] Comment on above: Performed By: #### L 100.0100, L500.2500 #### [facility] [address] [place], [address] IG% 0.100 Normal 0.0-0.9 [facility] Comment on above: Result Comment: IG% - Immature Granulocytes (promyelocytes, myelocytes and metamyelocytes) > 1% indicates that a LEFT SHIFT is Present. Performed By: #### L 100.0100, L500.2500 #### [facility] [address] [place], [address] Lymphocytes/100 WBC (Bld) 29.4 % Normal 19-41 [facility] Comment on above: Performed By: #### L 100.0100, L500.2500 #### [facility] [address] [place], [address] MCH (RBC) [Entitic mass] 28.4 pg Normal 27.0-32.0 [facility] Comment on above: Performed By: #### L 100.0100, L500.2500 #### [facility] [address] [place], [address] MCHC (RBC) [Mass/Vol] 34.5 g/dL Normal 32-36 [facility] Comment on above: Performed By: #### L 100.0100, L500.2500 #### [facility] [address] [place], [address] MCV (RBC) [Entitic vol] 82.5 fL Normal 81-99 [facility] Comment on above: Performed By: #### L 100.0100, L500.2500 #### [facility] [address] [place], [address] Monocytes/100 WBC (Bld) 6.6 % Normal 0-10 [facility] Comment on above: Performed By: #### L 100.0100, L500.2500 #### [facility] [address] [place], [address] Neutrophils/100 WBC (Bld) 60.5 % Normal 47-70 [facility] Comment on above: Performed By: #### L 100.0100, L500.2500 #### [facility] [address] [place], [address] Nucleated RBC (Bld) [#/Vol] 0 10*3/uL Normal 0-5 [facility] Comment on above: Performed By: #### L 100.0100, L500.2500 #### [facility] [address] [place], [address] Platelet mean volume (Bld) [Entitic vol] 9.7 fL Normal 6.2-12.0 [facility] Comment on above: Performed By: #### L 100.0100, L500.2500 #### [facility] [address] [place], [address] Platelets (Bld) [#/Vol] 317 10*3/uL Normal 150-450 [facility] Comment on above: Performed By: #### L 100.0100, L500.2500 #### [facility] [address] [place], [address] RBC (Bld) [#/Vol] 4.57 10*6/uL Normal 4.2-5.4 [facility] Comment on above: Performed By: #### L 100.0100, L500.2500 #### [facility] [address] [place], [address] RDW SD 37.4 fl Normal 35.1-43.9 [facility] Comment on above: Performed By: #### L 100.0100, L500.2500 #### [facility] [address] [place], [address] WBC (Bld) [#/Vol] 7.6 10*3/uL Normal 4.4-11.0 [facility] Comment on above: Performed By: #### L 100.0100, L500.2500 #### [facility] [address] [place], [address] Carbon dioxide, total [Moles /volume] in Central venous bloodOrdered By: Ian Rocha on 01-23-2025 CO2 [Moles/Vol] 21.5 mmol/L 21.0-32.0 [facility] Chloride assayOrdered By: Rosas Rocha on 01-23-2025 Chloride [Moles/Vol] 102 mmol/L 98-108 [facility] Emergency Department Summary on 01-23-2025 Emergency Department Summary [facility] Medical Records Department [address] [place] [address] Emergency Department Summary 01/23/25 MR#: [id number] Acct: [id number] Name: MELISSA BYRNE Rep #: [id number] : 1995 29 From: Ian Rocha MD [...] 69 Respirato (more content not included)... Normal [facility] Eosinophil percentageOrdered By: Ian Rocha on 01-23-2025 Eosinophils/100 WBC (Bld) 2.6 % 0-5 [facility] Erythrocyte distribution wid th ratioOrdered By: Ian Rocha on 01-23-2025 Erythrocyte distribution width (RBC) [Ratio] 12.5 % 11.6-14.6 [facility] Erythrocyte distribution wid th standard deviationOrdered By: Ian Rocha on 01-23-2025 Erythrocyte distribution width (RBC) [Ratio] 37.4 fl 35.1-43.9 [facility] Glomerular filtration rate ( GFR) estimation/1.73 sq m using serum, plasma, or whole bOrdered By: Ian Rocha on 01-23-2025 GFR/1.73 sq M.predicted among non-blacks MDRD (S/P/Bld) [Vol rate/Area] 127 mL/min/{1.73_m2} >60 [facility] Comment on above: mL/min/1.73m2 CKD-EP I Creatinine Equation (2020) Hematocrit Auto (Bld) [Volum e fraction]Ordered By: Ian Rocha on 01-23-2025 Hematocrit (Bld) [Volume fraction] 37.7 % 37-47 [facility] Hemoglobin measurementOrdere d By: Ian Rocha on 01-23-2025 Hemoglobin (Bld) [Mass/Vol] 13.0 g/dL 12.0-15.0 [facility] Immature granulocytes/100 WB C Auto (Bld)Ordered By: Ian Rocha on 01-23-2025 Immature granulocytes/100 WBC (Bld) 0.100 % 0.0-0.9 [facility] Comment on above: IG% - Immature Granu locytes (promyelocytes, myelocytes and metamyelocytes) > 1% indicates that a LEFT SHIFT is Present. MCV (mean corpuscular volume ) determinationOrdered By: Ian Rocha on 01-23-2025 MCV (RBC) [Entitic vol] 82.5 fL 81-99 [facility] Mean corpuscular hemoglobin (MCH) determinationOrdered By: Ian Rocha on 01-23-2025 MCH (RBC) [Entitic mass] 28.4 pg 27.0-32.0 [facility] Mean corpuscular hemoglobin concentration (MCHC) determinationOrdered By: Ian Rocha on 01-23-2025 MCHC (RBC) [Mass/Vol] 34.5 g/dL 32-36 [facility] Mean platelet volume determi nationOrdered By: Ian Rocha on 01-23-2025 Platelet mean volume (Bld) [Entitic vol] 9.7 fL 6.2-12.0 [facility] Monocyte percentageOrdered B y: Ian Rocha on 01-23-2025 Monocytes/100 WBC (Bld) 6.6 % 0-10 [facility] Neutrophil percentageOrdered By: Ian Rocha on 01-23-2025 Neutrophils/100 WBC (Bld) 60.5 % 47-70 [facility] Nucleated red blood cell per centageOrdered By: Ina Rocha on 01-23-2025 Nucleated RBC/100 WBC (Bld) [Ratio] 0 % 0-5 [facility] Platelet countOrdered By: Rosas Rocha on 01-23-2025 Platelets (Bld) [#/Vol] 317 10*3/uL 150-450 [facility] Potassium measurement (mass/ volume)Ordered By: Ian Rocha on 01-23-2025 Potassium (Unsp spec) [Mass/Vol] 3.4 mmol/L 3.3-5.1 [facility] ,Serum,hCG Quali.on 01-23-2025 HCG, SERUM QUAL Negative Normal [facility] Comment on above: Performed By: #### B TS, L100.0100 #### [facility] [address] [place], [address] RBC Auto (Bld) [#/Vol]Ordere d By: Ian Rocha on 01-23-2025 RBC (Bld) [#/Vol] 4.57 10*6/uL 4.2-5.4 [facility] Serum beta-hCG test, qualita tiveOrdered By: Ian Rocha on 01-23-2025 Beta HCG ( test) Ql Negative [facility] Serum creatinine measurement (mass/volume)Ordered By: Ian Rocha on 01-23-2025 Creatinine [Mass/Vol] 0.55 mg/dL Low 0.70-1.20 [facility] Serum glucose measurement (m ass/volume)Ordered By: Ian Rocha on 01-23-2025 Glucose [Mass/Vol] 229 mg/dL High 70-99 [facility] Serum or plasma calcium patrick urement (mass/volume)Ordered By: Ian Rocha on 01-23-2025 Calcium [Mass/Vol] 9.2 mg/dL 7.6-11.0 [facility] Serum or plasma urea nitroge n measurement (mass/volume)Ordered By: Ian Rocha on 01-23-2025 Urea nitrogen [Mass/Vol] 10 mg/dL 4-19 [facility] Sodium levelOrdered By: Ian Rocha on 01-23-2025 Sodium [Moles/Vol] 138 mmol/L 133-145 [facility] White blood cell (WBC) count Ordered By: Ian Rocha on 01-23-2025 WBC (Bld) [#/Vol] 7.6 10*3/uL 4.4-11.0 [facility] Hemoglobin A1con 01-21-2025 HbA1c (Bld) [Mass fraction] 6.8 % High <=5.6 [facility] Comment on above: Result Comment: Norm al < 5.7 % Prediabetic 5.7 - 6.4 % Diabetic >or= 6.5 % Please note range changes. Performed By: #### L 501.9922 ####[facility] [address] [place], [place], [id number] Hemoglobin A1c percentageOrd ered By: Claude Tomlin on 01-21-2025 HbA1c (Bld) [Mass fraction] 6.8 % High <5.7 [facility] Comment on above: Normal < 5.7 % Predi abetic 5.7 - 6.4 % Diabetic >or= 6.5 % Please note range changes. LDHon 01-21-2025 LDH 156 U/L Normal 84-246 [facility] Comment on above: Performed By: #### B , L100.0100 #### [facility] [address] [place], [address] Magnesiumon 01-21-2025 Magnesium [Mass/Vol] 1.8 mg/dL Normal 1.5-2.2 [facility] Comment on above: Performed By: #### B , L100.0100 #### [facility] [address] [place], [address] Uric Acidon 01-21-2025 URIC 4.0 mg/dL Normal 2.6-6.0 [facility] Comment on above: Result Comment: The drugs N-Acetylcysteine and Metamizole may falsely depress this assay. Performed By: #### B , L100.0100 #### [facility] [address] [place], [address] Urinalysis, Completeon 01-21 BACTERIA RARE Normal None Seen [facility] Comment on above: Order Comment: CLEAN CATCH Performed By: #### L 400.0001 ####[facility] [address] [place], [address] EPI,SQUAMOUS 5-10 SEEN Normal 5-10 [facility] Comment on above: Order Comment: CLEAN CATCH Performed By: #### L 400.0001 ####[facility] [address] [place], [address] WBC 5-10 SEEN Normal 0-5 [facility] Comment on above: Order Comment: CLEAN CATCH Performed By: #### L 400.0001 ####[facility] [address] [place], [address] Absolute lymphocyte countOrd ered By: Elie Mo on 01-20-2025 Lymphocytes Auto (Unsp spec) [#/Vol] 2.71 10*3/uL 0.83-4.51 [facility] Absolute neutrophil countOrd ered By: Elie Mo on 01-20-2025 Neutrophils (Bld) [#/Vol] 3.9 10*3/uL 2.0-7.7 [facility] Anion gap in Serum or Plasma Ordered By: Elie Mo on 01-20-2025 Anion gap [Moles/Vol] 13 mmol/L - [facility] Automated lymphocyte count a s percentage of total leukocytesOrdered By: Elie Mo on 01-20-2025 Lymphocytes/100 WBC Auto (Unsp spec) 36.6 % [facility] BUN/creatinine ratioOrdered By: Elie Mo on 01-20-2025 Urea nitrogen/Creatinine [Mass ratio] 18.5 mg/mg - [facility] Basic Metabolic Profile (BMP )on 01-20-2025 BUN/CRE 18.5 RATIO Normal - [facility] Comment on above: Performed By: #### L 400.0001 #### [facility] [address] [place], [address] Calcium [Mass/Vol] 9.2 mg/dL Normal 7.6-11.0 [facility] Comment on above: Performed By: #### L 400.0001 #### [facility] [address] [place], [address] Chloride [Moles/Vol] 105 mmol/L Normal 98-108 [facility] Comment on above: Performed By: #### L 400.0001 #### [facility] [address] [place], [address] CO2 [Moles/Vol] 21.5 mmol/L Normal 21.0-32.0 [facility] Comment on above: Performed By: #### L 400.0001 #### [facility] [address] [place], [address] Creatinine [Mass/Vol] 0.67 mg/dL Low 0.70-1.20 [facility] Comment on above: Performed By: #### L 400.0001 #### [facility] [address] [place], [address] ECRCL 132.14 ml/min Normal 50-250 [facility] Comment on above: Performed By: #### L 400.0001 #### [facility] [address] [place], [address] GAP 13 Normal 5-15 [facility] Comment on above: Performed By: #### L 400.0001 #### [facility] [address] [place], [address] GFR/1.73 sq M.predicted among non-blacks MDRD (S/P/Bld) [Vol rate/Area] 121 mL/min/{1.73_m2} Normal >60 [facility] Comment on above: Result Comment: mL/m in/1.73m2 CKD-EPI Creatinine Equation (2020) Performed By: #### L 400.0001 #### [facility] [address] [place], [address] Glucose [Mass/Vol] 206 mg/dL High 70-99 [facility] Comment on above: Performed By: #### L 400.0001 #### [facility] [address] [place], [address] Potassium [Moles/Vol] 3.5 mmol/L Normal 3.3-5.1 [facility] Comment on above: Performed By: #### L 400.0001 #### [facility] [address] [place], [address] Sodium [Moles/Vol] 140 mmol/L Normal 133-145 [facility] Comment on above: Performed By: #### L 400.0001 #### [facility] [address] [place], [address] Urea nitrogen [Mass/Vol] 12 mg/dL Normal 4-19 [facility] Comment on above: Performed By: #### L 400.0001 #### [facility] [address] [place], [address] Basophil percentageOrdered B y: Elie Mo on 01-20-2025 Basophils/100 WBC (Bld) 0.7 % 0-1 [facility] Bilirubin Test strip Ql (U)O rdered By: Elie Mo on 01-20-2025 Bilirubin Ql (U) Negative Negative [facility] Bilirubin directOrdered By: Elie Mo on 01-20-2025 Bilirubin.direct [Mass/Vol] 0.10 mg/dL 0.00-0.30 [facility] Bilirubin, totalOrdered By: Elie Mo on 01-20-2025 Bilirubin [Mass/Vol] 0.23 mg/dL 0.00-1.30 [facility] CBC W/Diff, Automatedon 01-07 Absolute Lymph 2.71 X10 3/uL Normal 0.83-4.51 [facility] Comment on above: Performed By: #### B TS, L100.0100 #### [facility] [address] [place], [address] Absolute Neut 3.9 X10 3/uL Normal 2.0-7.7 [facility] Comment on above: Performed By: #### B TS, L100.0100 #### [facility] [address] [place], [address] Basophils/100 WBC (Bld) 0.7 % Normal 0-1 [facility] Comment on above: Performed By: #### B TS, L100.0100 #### [facility] [address] [place], [address] Eosinophils/100 WBC (Bld) 3.2 % Normal 0-5 [facility] Comment on above: Performed By: #### B TS, L100.0100 #### [facility] [address] [place], [address] Erythrocyte distribution width (RBC) [Ratio] 12.5 % Normal 11.6-14.6 [facility] Comment on above: Performed By: #### Jo KWON, L100.0100 #### [facility] [address] [place], [address] Hematocrit (Bld) [Volume fraction] 38.4 % Normal 37-47 [facility] Comment on above: Performed By: #### Jo KWON, L100.0100 #### [facility] [address] [place], [address] Hemoglobin (Bld) [Mass/Vol] 12.9 g/dL Normal 12.0-15.0 [facility] Comment on above: Performed By: #### Jo KWON, L100.0100 #### [facility] [address] [place], [address] IG% 0.300 Normal 0.0-0.9 [facility] Comment on above: Result Comment: IG% - Immature Granulocytes (promyelocytes, myelocytes and metamyelocytes) > 1% indicates that a LEFT SHIFT is Present. Performed By: #### Jo KWON, L100.0100 #### [facility] [address] [place], [address] Lymphocytes/100 WBC (Bld) 36.6 % Normal 19-41 [facility] Comment on above: Performed By: #### Jo KWON, L100.0100 #### [facility] [address] [place], [address] MCH (RBC) [Entitic mass] 27.8 pg Normal 27.0-32.0 [facility] Comment on above: Performed By: #### Jo KWON, L100.0100 #### [facility] [address] [place], [address] MCHC (RBC) [Mass/Vol] 33.6 g/dL Normal 32-36 [facility] Comment on above: Performed By: #### Jo KWON, L100.0100 #### [facility] [address] [place], [address] MCV (RBC) [Entitic vol] 82.8 fL Normal 81-99 [facility] Comment on above: Performed By: #### Jo KWON, L100.0100 #### [facility] [address] [place], [address] Monocytes/100 WBC (Bld) 6.1 % Normal 0-10 [facility] Comment on above: Performed By: #### Jo KWON, L100.0100 #### [facility] [address] [place], [address] Neutrophils/100 WBC (Bld) 53.1 % Normal 47-70 [facility] Comment on above: Performed By: #### Jo KWON, L100.0100 #### [facility] [address] [place], [address] Nucleated RBC (Bld) [#/Vol] 0 10*3/uL Normal 0-5 [facility] Comment on above: Performed By: #### Jo KWON, L100.0100 #### [facility] [address] [place], [address] Platelet mean volume (Bld) [Entitic vol] 9.6 fL Normal 6.2-12.0 [facility] Comment on above: Performed By: #### Jo KWON, L100.0100 #### [facility] [address] [place], [address] Platelets (Bld) [#/Vol] 289 10*3/uL Normal 150-450 [facility] Comment on above: Performed By: #### Jo KWON, L100.0100 #### [facility] [address] [place], [address] RBC (Bld) [#/Vol] 4.64 10*6/uL Normal 4.2-5.4 [facility] Comment on above: Performed By: #### B TS, L100.0100 #### [facility] [address] [place], [address] RDW SD 37.6 fl Normal 35.1-43.9 [facility] Comment on above: Performed By: #### B TS, L100.0100 #### [facility] [address] [place], [address] WBC (Bld) [#/Vol] 7.4 10*3/uL Normal 4.4-11.0 [facility] Comment on above: Performed By: #### B TS, L100.0100 #### [facility] [address] [place], [address] CNOVon 01-20-2025 CNOV Normal [facility] CO2 (BldV) [Moles/Vol]Ordere d By: Elie Mo on 01-20-2025 CO2 [Moles/Vol] 28 mmol/L 23-33 [facility] Carbon dioxide, total [Moles /volume] in Central venous bloodOrdered By: Elie Mo on 01-20-2025 CO2 [Moles/Vol] 21.5 mmol/L 21.0-32.0 [facility] Chloride assayOrdered By: Lucia Mo on 01-20-2025 Chloride [Moles/Vol] 105 mmol/L 98-108 [facility] Emergency Department Summary on 01-20-2025 Emergency Department Summary [place] [facility] [address] [place] [address] Emergency Department Summary 01/20/25 MR#: [id number] Acct: [id number] Name: MELISSA BYRNE AMRITA Rep #: [id number] : 1995 29 From: Elie Mo DO [...] her and therefore she presents for evaluation [facility] Medical History Seizures Asthma Osteoarthritis Diabetes [...] or gallop (more content not included)... Normal [facility] Eosinophil percentageOrdered By: Elie Mo on 01-20-2025 Eosinophils/100 WBC (Bld) 3.2 % 0-5 [facility] Erythrocyte distribution wid th ratioOrdered By: Elie Mo on 01-20-2025 Erythrocyte distribution width (RBC) [Ratio] 12.5 % 11.6-14.6 [facility] Erythrocyte distribution wid th standard deviationOrdered By: Elie Mo on 01-20-2025 Erythrocyte distribution width (RBC) [Ratio] 37.6 fl 35.1-43.9 [facility] Glomerular filtration rate ( GFR) estimation/1.73 sq m using serum, plasma, or whole bOrdered By: Elie Mo on 01-20-2025 GFR/1.73 sq M.predicted among non-blacks MDRD (S/P/Bld) [Vol rate/Area] 121 mL/min/{1.73_m2} >60 [facility] Comment on above: mL/min/1.73m2 CKD-EP I Creatinine Equation (2020) HEMOGLOBIN A1C (POC)on 01-20 HbA1c (Bld) [Mass fraction] 7.1 % Abnormal 4.3 - 5.6 % [facility] Comment on above: Location:Count includes the [facility], [address] [place] [address], [facility] Point of care (POC) Hemoglobin A1c [...] specific diabetes management situations: The POC device second shift supervisor provides a normal range of 4.2% to 6.5% for the HGBA1C POC test. However, the [place] [employer] guidelines indicate that patients with [...] Interpretation and review of laboratory results Abnormal [facility] Hematocrit Auto (Bld) [Volum e fraction]Ordered By: Elie Mo on 01-20-2025 Hematocrit (Bld) [Volume fraction] 38.4 % 37-47 [facility] Hemoglobin measurementOrdere d By: Elie Mo on 01-20-2025 Hemoglobin (Bld) [Mass/Vol] 12.9 g/dL 12.0-15.0 [facility] Immature granulocytes/100 WB C Auto (Bld)Ordered By: Elie Mo on 01-20-2025 Immature granulocytes/100 WBC (Bld) 0.300 % 0.0-0.9 [facility] Comment on above: IG% - Immature Granu locytes (promyelocytes, myelocytes and metamyelocytes) > 1% indicates that a LEFT SHIFT is Present. Ketones Test strip Ql (U)Ord ered By: Elie Mo on 01-20-2025 Ketones Ql (U) Negative Negative [facility] Laboratory - Chemistry and C hemistry - challengeOrdered By: Elie Mo on 01-20-2025 AST [Catalytic activity/Vol] 17 U/L <32 [facility] Lactate dehydrogenase (LDH) measurementOrdered By: Elie Mo on 01-20-2025 LDH [Catalytic activity/Vol] 156 U/L 84-246 [facility] Lipaseon 01-20-2025 Lipase [Catalytic activity/Vol] 29 U/L Normal 13-75 [facility] Comment on above: Result Comment: Carson barker note: LIPASE revised reference range effective 22. New Lipase methodology. Expected to produce lower values than the previous assay method. NEW Reference Range: 13 - 75 U/L Performed By: #### L 500.2500, L500.3400, L501.2450 ####[facility] [address] [place], [address] Lipase measurementOrdered By : Elie Mo on 01-20-2025 Lipase [Catalytic activity/Vol] 29 U/L 13-75 [facility] Comment on above: Please note:LIPASE r evised reference range effective 22. New Lipase methodology. Expected to produce lower values than the previous assay method. NEW Reference Range: 13 - 75 U/L Liver Profileon 01-20-2025 Albumin [Mass/Vol] 3.9 g/dL Normal 3.5-5.0 [facility] Comment on above: Performed By: #### L 400.0001 #### [facility] [address] [place], [address] ALK PHOS 89 U/L Normal 35-104 [facility] Comment on above: Performed By: #### L 400.0001 #### [facility] [address] [place], [address] ALT [Catalytic activity/Vol] 37 U/L High <=34 [facility] Comment on above: Performed By: #### L 400.0001 #### [facility] [address] [place], [address] AST [Catalytic activity/Vol] 17 U/L Normal <=31 [facility] Comment on above: Performed By: #### L 400.0001 #### [facility] [address] [place], [address] Bilirubin [Mass/Vol] 0.23 mg/dL Normal 0.00-1.30 [facility] Comment on above: Performed By: #### L 400.0001 #### [facility] [address] [place], [address] Bilirubin.direct [Mass/Vol] 0.10 mg/dL Normal 0.00-0.30 [facility] Comment on above: Performed By: #### L 400.0001 #### [facility] [address] [place], [address] Globulin (S) [Mass/Vol] 3.0 g/dL Normal 2.2-4.2 [facility] Comment on above: Performed By: #### L 400.0001 #### [facility] [address] [place], [address] T PROT 6.9 g/dL Normal 5.9-8.4 [facility] Comment on above: Performed By: #### L 400.0001 #### [facility] [address] [place], [place], [id number] MCV (mean corpuscular volume ) determinationOrdered By: Elie Mo on 01-20-2025 MCV (RBC) [Entitic vol] 82.8 fL 81-99 [facility] Magnesium measurement (mass/ volume)Ordered By: Elie Mo on 01-20-2025 Magnesium (Unsp spec) [Mass/Vol] 1.8 mg/dL 1.5-2.2 [facility] Mean corpuscular hemoglobin (MCH) determinationOrdered By: Elie Mo on 01-20-2025 MCH (RBC) [Entitic mass] 27.8 pg 27.0-32.0 [facility] Mean corpuscular hemoglobin concentration (MCHC) determinationOrdered By: Elie Mo on 01-20-2025 MCHC (RBC) [Mass/Vol] 33.6 g/dL 32-36 [facility] Mean platelet volume determi nationOrdered By: Elie Mo on 01-20-2025 Platelet mean volume (Bld) [Entitic vol] 9.6 fL 6.2-12.0 [facility] Microscopic analysis of urin e for red blood cells (RBC)Ordered By: Elie Mo on 01-20-2025 Microscopic analysis of urine for red blood cells (RBC) 0 SEEN /hpf 0-5 [facility] Monocyte percentageOrdered B y: Elie Mo on 01-20-2025 Monocytes/100 WBC (Bld) 6.1 % 0-10 [facility] Mucus LM Ql (Urine sed)Order ed By: Elie Mo on 01-20-2025 Mucus Ql (Urine sed) 0 SEEN /hpf [facility] Neutrophil percentageOrdered By: Elie Mo on 01-20-2025 Neutrophils/100 WBC (Bld) 53.1 % 47-70 [facility] Nitrite Test strip Ql (U)Ord ered By: Elie Mo on 01-20-2025 Nitrite Ql (U) Negative Negative [facility] No Panel InformationOrdered By: Elie Mo on 01-20-2025 Blood Gas Sample Site Not entered [facility] Blood Gas Specimen Type RD [facility] Oxygen Delivery Device Room Air [facility] Nucleated red blood cell per centageOrdered By: Elie Mo on 01-20-2025 Nucleated RBC/100 WBC (Bld) [Ratio] 0 % 0-5 [facility] Platelet countOrdered By: Lucia Mo on 01-20-2025 Platelets (Bld) [#/Vol] 289 10*3/uL 150-450 [facility] Potassium measurement (mass/ volume)Ordered By: Elie Mo on 01-20-2025 Potassium (Unsp spec) [Mass/Vol] 3.5 mmol/L 3.3-5.1 [facility] ,Serum,hCG Quali.on 01-20-2025 HCG, SERUM QUAL Negative Normal [facility] Comment on above: Performed By: #### B TS, L100.0100 #### [facility] [address] [place] [address]. [place], [address] Protein Test strip Ql (U)Ord ered By: Elie Mo on 01-20-2025 Protein Ql (U) 30 mg/dl High Negative [facility] RBC Auto (Bld) [#/Vol]Ordere d By: Elie Mo on 01-20-2025 RBC (Bld) [#/Vol] 4.64 10*6/uL 4.2-5.4 [facility] Serum beta-hCG test, qualita tiveOrdered By: Elie Mo on 01-20-2025 Beta HCG ( test) Ql Negative [facility] Serum creatinine measurement (mass/volume)Ordered By: Elie Mo on 01-20-2025 Creatinine [Mass/Vol] 0.67 mg/dL Low 0.70-1.20 [facility] Serum globulin measurementOr dered By: Elie Mo on 01-20-2025 Globulin (S) [Mass/Vol] 3.0 g/dL 2.2-4.2 [facility] Serum glucose measurement (m ass/volume)Ordered By: Elie Mo on 01-20-2025 Glucose [Mass/Vol] 206 mg/dL High 70-99 [facility] Serum or plasma alanine schafer otransferase (ALT) measurementOrdered By: Elie Mo on 01-20-2025 ALT [Catalytic activity/Vol] 37 U/L High <35 [facility] Serum or plasma albumin patrick urement (mass/volume)Ordered By: Elie Mo on 01-20-2025 Albumin [Mass/Vol] 3.9 g/dL 3.5-5.0 [facility] Serum or plasma alkaline anaid sphatase measurementOrdered By: Elie Mo on 01-20-2025 ALP [Catalytic activity/Vol] 89 U/L 35-104 [facility] Serum or plasma calcium patrick urement (mass/volume)Ordered By: Elie Mo on 01-20-2025 Calcium [Mass/Vol] 9.2 mg/dL 7.6-11.0 [facility] Serum or plasma urea nitroge n measurement (mass/volume)Ordered By: Elie Mo on 01-20-2025 Urea nitrogen [Mass/Vol] 12 mg/dL 4-19 [facility] Serum or plasma uric acid me asurement (mass/volume)Ordered By: Elie Mo on 01-20-2025 Urate [Mass/Vol] 4.0 mg/dL 2.6-6.0 [facility] Comment on above: The drugs N-Acetylcy steine and Metamizole may falsely depress this assay. Sodium levelOrdered By: Rey Mo on 01-20-2025 Sodium [Moles/Vol] 140 mmol/L 133-145 [facility] Squamous epithelial cells de tection in urine sediment by light microscopyOrdered By: Elie Mo on 01-20-2025 Epithelial cells.squamous LM Ql (Urine sed) 5-10 SEEN /hpf 5-10 [facility] Total proteinOrdered By: Khoa Mo on 01-20-2025 Protein [Mass/Vol] 6.9 g/dL 5.9-8.4 [facility] Urinalysis, Completeon 01-20 BILIRUBIN URINE Negative Normal Negative [facility] Comment on above: Order Comment: CLEAN CATCH Performed By: #### L 400.0001 ####[facility] [address] [place], [address] Clarity (U) Clear Normal Clear [facility] Comment on above: Order Comment: CLEAN CATCH Performed By: #### L 400.0001 ####[facility] [address] [place], [address] Color (U) Straw Normal Yellow [facility] Comment on above: Order Comment: CLEAN CATCH Performed By: #### L 400.0001 ####[facility] [address] [place], [address] GLUCOSE, UR Normal Normal Normal [facility] Comment on above: Order Comment: CLEAN CATCH Performed By: #### L 400.0001 ####[facility] [address] [place], [address] KETONE UR Negative Normal Negative [facility] Comment on above: Order Comment: CLEAN CATCH Performed By: #### L 400.0001 ####[facility] [address] [place], [address] LEUK ESTERASE 25 /ul Abnormal Negative [facility] Comment on above: Order Comment: CLEAN CATCH Performed By: #### L 400.0001 ####[facility] [address] [place], [address] Nitrite Ql (U) Negative Normal Negative [facility] Comment on above: Order Comment: CLEAN CATCH Performed By: #### L 400.0001 ####[facility] [address] [place], [address] OCCULT BLOOD-UR Negative Normal Negative [facility] Comment on above: Order Comment: CLEAN CATCH Performed By: #### L 400.0001 ####[facility] [address] [place], [address] pH UR 6.0 Normal 5.0 - 8.0 [facility] Comment on above: Order Comment: CLEAN CATCH Performed By: #### L 400.0001 ####[facility] [address] [place], [address] PROT DIPSTX 30 mg/dl Abnormal Negative [facility] Comment on above: Order Comment: CLEAN CATCH Performed By: #### L 400.0001 ####[facility] [address] [place], [address] SP.GR. DIPSTX 1.020 Normal 1.002-1.030 [facility] Comment on above: Order Comment: CLEAN CATCH Performed By: #### L 400.0001 ####[facility] [address] [place], [address] UROBILI 1 mg/dl Abnormal Normal [facility] Comment on above: Order Comment: CLEAN CATCH Performed By: #### L 400.0001 ####[facility] [address] [place], [address] Mucus Ql (Urine sed) 0 SEEN Normal [facility] Comment on above: Order Comment: CLEAN CATCH Performed By: #### L 400.0001 ####[facility] [address] [place], [address] RBC 0 SEEN Normal 0-5 [facility] Comment on above: Order Comment: CLEAN CATCH Performed By: #### L 400.0001 ####[facility] [address] [place], [address] Urine clarityOrdered By: Khoa Mo on 01-20-2025 Clarity (U) Clear Clear [facility] Urine color determinationOrd ered By: Elie Mo on 01-20-2025 Color (U) Straw Yellow [facility] Urine glucose detectionOrder ed By: Elie Mo on 01-20-2025 Glucose Ql (U) Normal mg/dl Normal [facility] Urine leukocyte esterase det ection by dipstickOrdered By: Elie Mo on 01-20-2025 Leukocyte esterase Test strip Ql (U) 25 /ul High Negative [facility] Urine pHOrdered By: Elie bateman on 01-20-2025 pH (U) 6.0 [pH] 5.0 - 8.0 [facility] Urine sediment bacteria coun t by microscopy (number/high power field)Ordered By: Elie Mo on 01-20-2025 Bacteria LM.HPF (Urine sed) [#/Area] RARE /hpf None Seen [facility] Urine specific gravity measu rementOrdered By: Elie Mo on 01-20-2025 Specific gravity (U) [Rel density] 1.020 1.002-1.030 [facility] Urine urobilinogen measureme ntOrdered By: Elie Mo on 01-20-2025 Urobilinogen Ql (U) 1 mg/dl High Normal [facility] Venous Blood Gason Blood Gas Type RD Normal [facility] Comment on above: Performed By: #### L 400.0001 #### [facility] [address] [facility] [address] CO2 [Moles/Vol] 28 mmol/L Normal 23-33 [facility] Comment on above: Performed By: #### L 400.0001 #### [facility] [address] [place], [address] HCO3 (Bld) [Moles/Vol] 27 mmol/L High 22-26 [facility] Comment on above: Performed By: #### L 400.0001 #### [facility] [address] [place], [address] O2 Delivery Dev Room Air Normal [facility] Comment on above: Performed By: #### L 400.0001 #### [facility] [address] [place], [address] SITE Not entered [facility] Comment on above: Performed By: #### L 400.0001 #### [facility] [address] [place], [address] VBG BE 2 mmol/L Normal -1.0-3.5 [facility] Comment on above: Performed By: #### L 400.0001 #### [facility] [address] [place], [place], [address] VBG pCO2 41.2 mmHg Normal 41-51 [facility] Comment on above: Performed By: #### L 400.0001 #### [facility] [address] [place], [place], [address] VBG pH 7.42 Normal 7.32-7.42 [facility] Comment on above: Performed By: #### L 400.0001 #### [facility] [address] [place], [place], [address] VBG PO2 48 mmHg High 25-40 [facility] Comment on above: Performed By: #### L 400.0001 #### [facility] [address] [place], [place], [address] VBG SO2 84 High 50-70 [facility] Comment on above: Performed By: #### L 400.0001 #### [facility] [address] [place], [place], [address] Venous blood base excess brigitte surementOrdered By: Elie Mo on 01-20-2025 Base excess Calc (BldV) [Moles/Vol] 2 mmol/L -1.0-3.5 [facility] Venous blood bicarbonate brigitte surementOrdered By: Elie Mo on 01-20-2025 HCO3 (Bld) [Moles/Vol] 27 mmol/L High 22-26 [facility] Venous blood oxygen saturati on measurementOrdered By: Elie Mo on 01-20-2025 Oxygen saturation in Blood 84 % High 50-70 [facility] Venous blood pH measurementO rdered By: Elie Mo on 01-20-2025 pH (BldV) 7.42 [pH] 7.32-7.42 [facility] Venous blood partial pressur e of carbon dioxide measurementOrdered By: Elie Mo on 01-20-2025 CO2 (BldV) [Partial pressure] 41.2 mm[Hg] 41-51 [facility] Venous blood partial pressur e of oxygen measurementOrdered By: Elie Mo on 01-20-2025 Oxygen (BldV) [Partial pressure] 48 mm[Hg] High 25-40 [facility] White blood cell (WBC) count Ordered By: Elie Mo on 01-20-2025 WBC (Bld) [#/Vol] 7.4 10*3/uL 4.4-11.0 [facility] White blood cell countOrdere d By: Elie Mo on 01-20-2025 White blood cell count 5-10 SEEN /hpf 0-5 [facility] HISTORY PHYSICALon HISTORY PHYSICAL Normal [facility] AST(SGOT)on 12-16-2024 AST [Catalytic activity/Vol] 17 U/L Normal <=31 [facility] Comment on above: Performed By: #### Jo KWON, L100.0100 #### [facility] [address] [place], [address] Alanine Aminotransferas (SGP T)on 12-16-2024 ALT [Catalytic activity/Vol] 24 U/L Normal <=34 [facility] Comment on above: Performed By: #### Jo KWON, L100.0100 #### [facility] [address] [place], [address] Bedside Glucoseon 12-16-2024 FINGERSTICK GLU 115 mg/dL High 74-106 [facility] Comment on above: Result Comment: ELLEN ZAMBRANO OF PATIENT CARE PER NURSING PROTOCOL Performed By: #### L 100.0100, L500.2500 #### [facility] [address] [place], [address] CBC-Complete Blood Cnt No Di ffon 12-16-2024 Erythrocyte distribution width (RBC) [Ratio] 12.7 % Normal 11.6-14.6 [facility] Comment on above: Performed By: #### Jo KWON, L100.0100 #### [facility] [address] [place], [address] Hematocrit (Bld) [Volume fraction] 38.6 % Normal 37-47 [facility] Comment on above: Performed By: #### Jo KWON, L100.0100 #### [facility] [address] [place], [address] Hemoglobin (Bld) [Mass/Vol] 12.9 g/dL Normal 12.0-15.0 [facility] Comment on above: Performed By: #### Jo KWON, L100.0100 #### [facility] [address] [place], [address] MCH (RBC) [Entitic mass] 28.4 pg Normal 27.0-32.0 [facility] Comment on above: Performed By: #### Jo KWON, L100.0100 #### [facility] [address] [place], [address] MCHC (RBC) [Mass/Vol] 33.4 g/dL Normal 32-36 [facility] Comment on above: Performed By: #### Jo KWON, L100.0100 #### [facility] [address] [place], [address] MCV (RBC) [Entitic vol] 85.0 fL Normal 81-99 [facility] Comment on above: Performed By: #### Jo KWON, L100.0100 #### [facility] [address] [place], [address] Platelet mean volume (Bld) [Entitic vol] 9.3 fL Normal 6.2-12.0 [facility] Comment on above: Performed By: #### Jo KWON, L100.0100 #### [facility] [address] [place], [address] Platelets (Bld) [#/Vol] 378 10*3/uL Normal 150-450 [facility] Comment on above: Performed By: #### Jo KWON, L100.0100 #### [facility] [address] [place], [address] RBC (Bld) [#/Vol] 4.54 10*6/uL Normal 4.2-5.4 [facility] Comment on above: Performed By: #### B TS, L100.0100 #### [facility] [address] [place], [address] RDW SD 38.8 fl Normal 35.1-43.9 [facility] Comment on above: Performed By: #### B TS, L100.0100 #### [facility] [address] [place], [address] WBC (Bld) [#/Vol] 8.3 10*3/uL Normal 4.4-11.0 [facility] Comment on above: Performed By: #### Jo TS, L100.0100 #### [facility] [address] [place], [address] CNPNon 12-16-2024 CNPN Normal [facility] Erythrocyte distribution wid th ratioOrdered By: Mariajose Nickerson on 12-16-2024 Erythrocyte distribution width (RBC) [Ratio] 12.7 % 11.6-14.6 [facility] Erythrocyte distribution wid th standard deviationOrdered By: Mariajose Nickerson on 12-16-2024 Erythrocyte distribution width (RBC) [Ratio] 38.8 fl 35.1-43.9 [facility] Glomerular filtration rate ( GFR) estimation/1.73 sq m using serum, plasma, or whole bOrdered By: Mariajose Nickerson on 12-16-2024 GFR/1.73 sq M.predicted among non-blacks MDRD (S/P/Bld) [Vol rate/Area] 126 mL/min/{1.73_m2} >60 [facility] Comment on above: mL/min/1.73m2 CKD-EP I Creatinine Equation (2020) [facility] deOrdered By: Mariajose Nickerson on 12-16-2024 Glucose [Mass/Vol] 115 mg/dL High 74-106 [facility] Comment on above: MANAGEMENT OF PATIEN T CARE PER NURSING PROTOCOL Hematocrit Auto (Bld) [Volum e fraction]Ordered By: Mariajose Nickerson on 12-16-2024 Hematocrit (Bld) [Volume fraction] 38.6 % 37-47 [facility] Hemoglobin measurementOrdere d By: Mariajose Nickerson on 12-16-2024 Hemoglobin (Bld) [Mass/Vol] 12.9 g/dL 12.0-15.0 [facility] - Chemistry and C hemistry - challengeOrdered By: Mariajose Nickerson on 12-16-2024 AST [Catalytic activity/Vol] 17 U/L <32 [facility] MCV (mean corpuscular volume ) determinationOrdered By: Mariajose Nickerson on 12-16-2024 MCV (RBC) [Entitic vol] 85.0 fL 81-99 [facility] Mean corpuscular hemoglobin (MCH) determinationOrdered By: Mariajose Nickerson on 12-16-2024 MCH (RBC) [Entitic mass] 28.4 pg 27.0-32.0 [facility] Mean corpuscular hemoglobin concentration (MCHC) determinationOrdered By: Mariajose Nickerson on 12-16-2024 MCHC (RBC) [Mass/Vol] 33.4 g/dL 32-36 [facility] Mean platelet volume determi nationOrdered By: Mariajose Nickerson on 12-16-2024 Platelet mean volume (Bld) [Entitic vol] 9.3 fL 6.2-12.0 [facility] OB Triage Physician Noteon 0 12-16-2024 OB Triage Physician Note [facility] Medical Records Department [address] [place] [address] OB Triage Physician Note 12/16/242022 MR#: [id number] Acct: [id number] Name: MELISSA BYRNE Rep #: [id number] : 1995 29 From: Mariajose Nickerson CNM PCP: Dr. Jamari Byrne MD Status:REG CLI Y Location: [place] [address] HPI - General HPI Narrative MELISSA BYRNE, is a 29 F who is 10 days post that presents to triage with headache, swelling, nausea and vomiting and to r/o pre e. Maternal Data Information ADA Calculator Estimated Delivery Date Method Current WG Current Estimate 12/18/24 Manual 39w 5d PFSH PFS Medical History (Updated 12/16/24 @ 20:43 by [...] Nickerson; Dr. Jamari Byrne MD Signed Normal [facility] Platelet countOrdered By: Tamera Nickerson on 12-16-2024 Platelets (Bld) [#/Vol] 378 10*3/uL 150-450 [facility] RBC Auto (Bld) [#/Vol]Ordere d By: Mariajose Nickerson on 12-16-2024 RBC (Bld) [#/Vol] 4.54 10*6/uL 4.2-5.4 [facility] Serum Creatinine AND GFRon 0 12-16-2024 Creatinine [Mass/Vol] 0.57 mg/dL Low 0.70-1.20 [facility] Comment on above: Performed By: #### Jo KWON, L100.0100 #### [facility] [address] [place], [address] ECRCL 250.08 ml/min High 50-250 [facility] Comment on above: Performed By: #### Jo KWON, L100.0100 #### [facility] [address] [place], [address] GFR/1.73 sq M.predicted among non-blacks MDRD (S/P/Bld) [Vol rate/Area] 126 mL/min/{1.73_m2} Normal >60 [facility] Comment on above: Result Comment: mL/m in/1.73m2 CKD-EPI Creatinine Equation (2020) Performed By: #### Jo KWON, L100.0100 #### [facility] [address] [place], [address] Serum creatinine measurement (mass/volume)Ordered By: Mariajose Nickerson on 12-16-2024 Creatinine [Mass/Vol] 0.57 mg/dL Low 0.70-1.20 [facility] Serum or plasma alanine schafer otransferase (ALT) measurementOrdered By: Mariajose Nickerson on 12-16-2024 ALT [Catalytic activity/Vol] 24 U/L <35 [facility] Serum or plasma uric acid me asurement (mass/volume)Ordered By: Mariajose Nickerson on 12-16-2024 Urate [Mass/Vol] 5.3 mg/dL 2.6-6.0 [facility] Comment on above: The drugs N-Acetylcy steine and Metamizole may falsely depress this assay. Uric Acidon 12-16-2024 URIC 5.3 mg/dL Normal 2.6-6.0 [facility] Comment on above: Result Comment: The drugs N-Acetylcysteine and Metamizole may falsely depress this assay. Performed By: #### B TS, L100.0100 #### [facility] [address] [place], [address] White blood cell (WBC) count Ordered By: Mariajose Nickerson on 12-16-2024 WBC (Bld) [#/Vol] 8.3 10*3/uL 4.4-11.0 [facility] CNPNon 12-15-2024 CNPN Normal [facility] Bedside Glucoseon 12-09-2024 FINGERSTICK GLU 97 mg/dL Normal 74-106 [facility] Comment on above: Result Comment: ELLEN GEMENT OF PATIENT CARE PER NURSING PROTOCOL Performed By: #### L 100.0100, L500.2500 #### [facility] [address] [place], [address] FINGERSTICK GLU 101 mg/dL Normal 74-106 [facility] Comment on above: Result Comment: ELLEN GEMENT OF PATIENT CARE PER NURSING PROTOCOL Performed By: #### L 400.0001 #### [facility] [address] [place], [address] Gl[facility] deOrdered By: William Gramajo on 12-09-2024 Glucose [Mass/Vol] 97 mg/dL 74-106 [facility] Comment on above: MANAGEMENT OF PATIEN T CARE PER NURSING PROTOCOL Bedside Glucoseon 12-08-2024 FINGERSTICK GLU 125 mg/dL High 74-106 [facility] Comment on above: Result Comment: ELLEN GEMENT OF PATIENT CARE PER NURSING PROTOCOL Performed By: #### B TS, L100.0100 #### [facility] [address] [place], [address] FINGERSTICK GLU 93 mg/dL Normal 74-106 [facility] Comment on above: Result Comment: ELLEN GEMENT OF PATIENT CARE PER NURSING PROTOCOL Performed By: #### L 100.0100, L500.2500 #### [facility] [address] [place], [address] FINGERSTICK GLU 104 mg/dL Normal 74-106 [facility] Comment on above: Result Comment: ELLEN GEMENT OF PATIENT CARE PER NURSING PROTOCOL Performed By: #### B TS, L100.0100 #### [facility] [address] [place], [address] FINGERSTICK GLU 132 mg/dL High 74-106 [facility] Comment on above: Result Comment: ELLEN GEMENT OF PATIENT CARE PER NURSING PROTOCOL Performed By: #### L 400.0001 #### [facility] [address] [place], [address] CNPNon 12-08-2024 CNPN Normal [facility] Absolute lymphocyte countOrd ered By: William Gramajo on 12-07-2024 Lymphocytes Auto (Unsp spec) [#/Vol] 1.98 10*3/uL 0.83-4.51 [facility] Absolute neutrophil countOrd ered By: William Gramajo on 12-07-2024 Neutrophils (Bld) [#/Vol] 6.3 10*3/uL 2.0-7.7 [facility] Amphetamine detection with 1 000 ng/mL as cutoffOrdered By: William Gramajo on 12-07-2024 Amphetamines Screen method >1000 ng/mL Ql (U) Negative < 200 ng/mL [facility] Automated blood erythrocyte countOrdered By: William Gramajo on 12-07-2024 RBC (Bld) [#/Vol] 4.25 10*6/uL Normal 4.2-5.4 [facility] Comment on above: Performed By: #### B TS, L100.0100 #### [facility] [address] [place], [address] Automated blood hematocrit ( percentage)Ordered By: William Gramajo on 12-07-2024 Hematocrit (Bld) [Volume fraction] 36.0 % Low 37-47 [facility] Comment on above: Performed By: #### B TS, L100.0100 #### [facility] [address] [place], [address] Automated lymphocyte count a s percentage of total leukocytesOrdered By: William Gramajo on 12-07-2024 Lymphocytes/100 WBC Auto (Unsp spec) 22.0 % 19-41 [facility] Basophil percentageOrdered B y: William Gramajo on 12-07-2024 Basophils/100 WBC (Bld) 0.4 % Normal 0-1 [facility] Comment on above: Performed By: #### B TS, L100.0100 #### [facility] [address] [place], [address] Bedside Glucoseon 12-07-2024 FINGERSTICK GLU 143 mg/dL High 74-106 [facility] Comment on above: Result Comment: ELLEN GEMENT OF PATIENT CARE PER NURSING PROTOCOL Performed By: #### B TS, L100.0100 #### [facility] [address] [place], [address] FINGERSTICK GLU 118 mg/dL High 74-106 [facility] Comment on above: Result Comment: ELLEN GEMENT OF PATIENT CARE PER NURSING PROTOCOL Performed By: #### L 400.0001 #### [facility] [address] [place], [address] FINGERSTICK GLU 73 mg/dL Low 74-106 [facility] Comment on above: Result Comment: ELLEN GEMENT OF PATIENT CARE PER NURSING PROTOCOL Performed By: #### L 100.0100, L500.2500 #### [facility] [address] [place], [address] FINGERSTICK GLU 99 mg/dL Normal 74-106 [facility] Comment on above: Result Comment: ELLEN GEMENT OF PATIENT CARE PER NURSING PROTOCOL Performed By: #### L 400.0001 #### [facility] [address] [place], [address] CBC W/Diff, Automatedon 07-0 Absolute Lymph 1.98 X10 3/uL Normal 0.83-4.51 [facility] Comment on above: Performed By: #### Jo KWON, L100.0100 #### [facility] [address] [place], [address] Absolute Neut 6.3 X10 3/uL Normal 2.0-7.7 [facility] Comment on above: Performed By: #### Jo KWON, L100.0100 #### [facility] [address] [place], [address] IG% 0.600 Normal 0.0-0.9 [facility] Comment on above: Result Comment: IG% - Immature Granulocytes (promyelocytes, myelocytes and metamyelocytes) > 1% indicates that a LEFT SHIFT is Present. Performed By: #### Jo KWON, L100.0100 #### [facility] [address] [place], [address] Lymphocytes/100 WBC (Bld) 22.0 % Normal 19-41 [facility] Comment on above: Performed By: #### Jo KWON, L100.0100 #### [facility] [address] [place], [address] Nucleated RBC (Bld) [#/Vol] 0 10*3/uL Normal 0-5 [facility] Comment on above: Performed By: #### Jo KWON, L100.0100 #### [facility] [address] [place], [address] RDW SD 41.1 fl Normal 35.1-43.9 [facility] Comment on above: Performed By: #### Jo KWON, L100.0100 #### [facility] [address] [place], [address] Eosinophil percentageOrdered By: William Gramajo on 12-07-2024 Eosinophils/100 WBC (Bld) 1.0 % Normal 0-5 [facility] Comment on above: Performed By: #### B TS, L100.0100 #### [facility] [address] [place], [address] Erythrocyte distribution wid th ratioOrdered By: William Gramajo on 12-07-2024 Erythrocyte distribution width (RBC) [Ratio] 13.4 % Normal 11.6-14.6 [facility] Comment on above: Performed By: #### B TS, L100.0100 #### [facility] [address] [place], [address] Erythrocyte distribution wid th standard deviationOrdered By: William Gramajo on 12-07-2024 Erythrocyte distribution width (RBC) [Ratio] 41.1 fl 35.1-43.9 [facility] H AND P Exam - OB/GYNon 07-0 H&P Exam - MOTION PICTURE COMMENTATOR [facility] Medical Records Department [address] [place] [address] H P Exam - MOTION PICTURE COMMENTATOR 12/07/24 1223 MR#: [id number] Acct: [id number] Name: MELISSA BYRNE Rep #: [id number] : 1995 29 From: William Gramajo MD PCP: Dr. Jamari Byrne MD Status:ADM IN Location: [place] [address]188-1 HPI - General General Date of Admission: [...] MD; Dr. William Gramajo MD Signed Normal [facility] Hemoglobin measurementOrdere d By: William Gramajo on 12-07-2024 Hemoglobin (Bld) [Mass/Vol] 12.1 g/dL Normal 12.0-15.0 [facility] Comment on above: Performed By: #### B TS, L100.0100 #### [facility] [address] [facility] [place], [address] Immature granulocytes/100 WB C Auto (Bld)Ordered By: William Gramajo on 12-07-2024 Immature granulocytes/100 WBC (Bld) 0.600 % 0.0-0.9 [facility] Comment on above: IG% - Immature Granu locytes (promyelocytes, myelocytes and metamyelocytes) > 1% indicates that a LEFT SHIFT is Present. MCV (mean corpuscular volume ) determinationOrdered By: William Gramajo on 12-07-2024 MCV (RBC) [Entitic vol] 84.7 fL Normal 81-99 [facility] Comment on above: Performed By: #### B TS, L100.0100 #### [facility] [address] [place], [address] MR/OB.VAGDELIon 12-07-2024 [facility] Medical Records Department [address] [place] [address] OB Vaginal Delivery 12/07/242023 MR#: [id number] Acct: [id number] Name: MELISSA BYRNE Rep #: [id number] : 1995 29 From: William Gramajo MD PCP: Dr. Jamari Byrne MD Status:ADM IN Location: [facility]-5 Maternal Data Information ADA Calculator Estimated Delivery [...] Vessel Description: 3 Vessels Cord Entanglement: None A Gender: Female (1 minute): 9 (5 minute): 10 Delayed Cord Clamping: Yes Fabric Pattern Grader director of cardiac rehabilitation: No Post Vaginal Deli Medications given after delivery: IV Pitocin Episiotomy Description: None Laceration: None Complication Complications: No 12/07/242025 Cosigner Signature (if applicable): CC: Dr. Jamari Byrne MD; Dr. William Gramajo MD Signed Normal [facility] Mean corpuscular hemoglobin (MCH) determinationOrdered By: William Gramajo on 12-07-2024 MCH (RBC) [Entitic mass] 28.5 pg Normal 27.0-32.0 [facility] Comment on above: Performed By: #### Jo KWON, L100.0100 #### [facility] [address] [place], [address] Mean corpuscular hemoglobin concentration (MCHC) determinationOrdered By: William Gramajo on 12-07-2024 MCHC (RBC) [Mass/Vol] 33.6 g/dL Normal 32-36 [facility] Comment on above: Performed By: #### B SHYANN, L100.0100 #### [facility] [address] [place], [address] Mean platelet volume determi nationOrdered By: William Gramajo on 12-07-2024 Platelet mean volume (Bld) [Entitic vol] 9.7 fL Normal 6.2-12.0 [facility] Comment on above: Performed By: #### Jo KWON, L100.0100 #### [facility] [address] [place], [address] Monocyte percentageOrdered B y: William Gramajo on 12-07-2024 Monocytes/100 WBC (Bld) 6.0 % Normal 0-10 [facility] Comment on above: Performed By: #### Jo KWON, L100.0100 #### [facility] [address] [place], [address] Neutrophil percentageOrdered By: William Gramajo on 12-07-2024 Neutrophils/100 WBC (Bld) 70.0 % Normal 47-70 [facility] Comment on above: Performed By: #### Jo KWON, L100.0100 #### [facility] [address] [place], [address] No Panel InformationOrdered By: William Gramajo on 12-07-2024 Urine Buprenorphine Qualitative Negative < 200 ng/mL [facility] Urine Oxycodone Screen Negative < 100 ng/mL [facility] Nucleated red blood cell per centageOrdered By: William Gramajo on 12-07-2024 Nucleated RBC/100 WBC (Bld) [Ratio] 0 % 0-5 [facility] Platelet countOrdered By: Nickolas mashaquille Avila on 12-07-2024 Platelets (Bld) [#/Vol] 230 10*3/uL Normal 150-450 [facility] Comment on above: Performed By: #### B SHYANN, L100.0100 #### [facility] [address] [place], [address] Quantitative urine opiates m easurementOrdered By: William Gramajo on 12-07-2024 Opiates Ql (U) Negative < 300 ng/mL [facility] Screening urine fentanyl brigitte surementOrdered By: William Gramajo on 12-07-2024 fentaNYL Screen Ql (U) Negative [facility] Syphilis Antibodieson 2024 Syphilis Abs Non-Reactive Normal Nonreactive [facility] Comment on above: Performed By: #### L 400.0001 #### [facility] [address] [place], [address] Type AND Screenon 12-07-2024 Ab SCREEN GEL Negative Normal [facility] Comment on above: Order Comment: Labor Performed By: #### B SHYANN, L100.0100 #### [facility] [address] [place], [address] Ur Drg Scn w/Rflx AMPH Confi rmon 12-07-2024 DRUG CONFIRM Normal [facility] Comment on above: Order Comment: [...] [facility] Performed By: #### L 400.0001 #### [facility] [address] [place], [address] VISTA UDS PH Normal [facility] Comment on above: Order Comment: CLEAN CATCH Performed By: #### L 400.0001 #### [facility] [address] [facility] [address] Urine Drug Screen (VISTA)on 12-07-2024 BARBITIURATES Normal < 200 ng/mL [facility] Comment on above: Order Comment: CLEAN CATCH Performed By: #### L 400.0001 #### [facility] [address] [facility] [address] BENZODIAZIPINE Normal < 200 ng/mL [facility] Comment on above: Order Comment: CLEAN CATCH Performed By: #### L 400.0001 #### [facility] [address] [place] [address] BUP Ur Drug Scr Normal < 200 ng/mL [facility] Comment on above: Order Comment: CLEAN CATCH Performed By: #### L 400.0001 #### [facility] [address] [place] [id number] COCAINE Normal < 300 ng/mL [facility] Comment on above: Order Comment: CLEAN CATCH Performed By: #### L 400.0001 #### [facility] [address] [facility] [address] Fentanyl Normal [facility] Comment on above: Order Comment: CLEAN CATCH Performed By: #### L 400.0001 #### [facility] [address] [place] [id number] METHADONE Normal < 300 ng/mL [facility] Comment on above: Order Comment: CLEAN CATCH Performed By: #### L 400.0001 #### [facility] [address] [facility] [address] OPIATES Normal < 300 ng/mL [facility] Comment on above: Order Comment: CLEAN CATCH Performed By: #### L 400.0001 #### [facility] [address] [place] [id number] OXYCODONE Normal < 100 ng/mL [facility] Comment on above: Order Comment: CLEAN CATCH Performed By: #### L 400.0001 #### [facility] [address] [place] [id number] PCP Normal < 25 ng/mL [facility] Comment on above: Order Comment: CLEAN CATCH Performed By: #### L 400.0001 #### [facility] [address] [place] [address] THC Normal < 50 ng/mL [facility] Comment on above: Order Comment: CLEAN CATCH Performed By: #### L 400.0001 #### [facility] [address] [place] [address] Urine benzodiazepine levelOr dered By: William Gramajo on 12-07-2024 Benzodiazepines Ql (U) Negative < 200 ng/mL [facility] Urine cocaine levelOrdered B y: William Gramajo on 12-07-2024 Cocaine Ql (U) Negative < 300 ng/mL [facility] Urine morms-1-yoxvlrnqhxuorw abinol (THC) measurementOrdered By: William Gramajo on 12-07-2024 Cannabinoids Screen Ql (U) Negative < 50 ng/mL [facility] Urine phencyclidine (PCP) de tectionOrdered By: William Gramajo on 12-07-2024 Phencyclidine Ql (U) Negative < 25 ng/mL [facility] White blood cell (WBC) count Ordered By: William Gramajo on 12-07-2024 WBC (Bld) [#/Vol] 9.0 10*3/uL Normal 4.4-11.0 [facility] Comment on above: Performed By: #### B TS, L100.0100 #### [facility] [address] [place] [id number] [facility] Biophysical profile.tammy dy movement USon 12-06-2024 [facility] Radiology Study observation (narrative) [facility] URINE OB DIP B/Oon 5 Glucose Ql (U) 100 mg/dL Neg [facility] Interpretation and review of laboratory results Normal [facility] Protein.monoclonal (U) [Mass/Vol] Negative Neg mg/dL [facility] CNPNon 12-01-2024 CNPN Normal [facility] Biophysical profile.tammy dy movement USon 11-30-2024 [facility] Radiology Study observation (narrative) [facility] CNPNon 11-25-2024 CNPN Normal [facility] URINE OB DIP B/Oon 5 Glucose Ql (U) Negative Neg mg/dL [facility] Interpretation and review of laboratory results Normal [facility] Protein.monoclonal (U) [Mass/Vol] Negative Neg mg/dL [facility] Biophysical profile.tammy dy movement USon 11-22-2024 [facility] Radiology Study observation (narrative) [facility] OB Triage Physician Noteon 0 11-19-2024 OB Triage Physician Note [facility] Medical Records Department [address] [place] [address] OB Triage Physician Note 11/19/24 0712 MR#: [id number] Acct: [id number] Name: MELISSA BYRNE Rep #: [id number] : 1995 29 From: Whit Patel MD PCP: Dr. Jamari Byrne MD Status:DEP CLI Y Location: [facility] HPI - General General Date [...] MD; Dr. Jamari Byrne MD Signed Normal [facility] BACTERIAL VAGINOSIS NAATon 0 11-18-2024 Lactobacillus crispatus+gasseri+dez senii + Gardnerella vaginalis + Atopobium vaginae rRNA SUMIT+probe Ql (Vag fld) Not detected Normal Not detected [facility] Comment on above: Order Comment: Speci men Type: SWABOrdering Facility: [facility] Address: [address] [place] [address] Performed By: #### B VAMP, CVTV ####[facility] LABCLIA [id number] [address] [place] JOSUÉ/TRICHOMONAS NAATon 0 11-18-2024 C. glabrata RNA SUMIT+probe Ql (Vag fld) Not detected Normal Not detected [facility] Comment on above: Order Comment: Speci men Type: SWABOrdering Facility: [facility] Address: [address] [place] [address] Performed By: #### B VAMP, CVTV ####[facility] LABCLIA [id number] [place] [address] [place] Josué sp DNA SUMIT+probe Ql (Vag fld) Not detected Normal Not detected [facility] Comment on above: Order Comment: Speci men Type: SWABOrdering Facility: [facility] Address: [address] [place] [address] Result Comment: The Josué species group target includes C. albicans, C. tropicalis, C. parapsilosis, and C. dubliniensis. Performed By: #### B VAMP, CVTV ####[facility] LABCLIA [id number] [address] [place] T. vaginalis DNA SUMIT+probe Ql (Unsp spec) Not detected Normal Not detected [facility] Comment on above: Order Comment: Speci men Type: SWABOrdering Facility: [facility] Address: [address] [place] [address] Performed By: #### B VAMP, CVTV ####[facility] LABCLIA [id number] [place] [address] [place] Urine Cultureon 11-17-2024 [facility] Comments: urine in l ab Mixed Gram Positive Organisms [place] Count 11,000-25,000 MIX[facility] Mixed contaminants. Submit a new specimen if indicated. Normal [facility] Comment on above: Performed By: #### M 100.2200 ####[facility] [address] [place], [address] CNPNon 11-16-2024 CNPN Normal [facility] Amorphous sediment detection in urine sediment by light microscopyOrdered By: Whit Patel on 11-15-2024 Amorphous sediment LM Ql (Urine sed) 1+ [facility] Bilirubin Test strip Ql (U)O rdered By: Whit Patel on 11-15-2024 Bilirubin Ql (U) Negative Negative [facility] Calcium oxalate crystals det ection in urine sediment by light microscopyOrdered By: Whit Patel on 11-15-2024 Calcium oxalate crystals LM Ql (Urine sed) 2+ /hpf [facility] Biophysical profile.tammy dy movement USon 11-15-2024 [facility] Radiology Study observation (narrative) [facility] Ketones Test strip Ql (U)Ord ered By: Whit Patel on 11-15-2024 Ketones Ql (U) 5 mg/dl High Negative [facility] Microscopic analysis of urin e for red blood cells (RBC)Ordered By: Whit Patel on 11-15-2024 Microscopic analysis of urine for red blood cells (RBC) 0-5 SEEN /hpf 0-5 [facility] Mucus LM Ql (Urine sed)Order ed By: Whit Patel on 11-15-2024 Mucus Ql (Urine sed) 0 SEEN /hpf [facility] Nitrite Test strip Ql (U)Ord ered By: Whit Patel on 11-15-2024 Nitrite Ql (U) Negative Negative [facility] Protein Test strip Ql (U)Ord ered By: Whit Patel on 11-15-2024 Protein Ql (U) 15 mg/dl High Negative [facility] Squamous epithelial cells de tection in urine sediment by light microscopyOrdered By: Whit Patel on 11-15-2024 Epithelial cells.squamous LM Ql (Urine sed) 5-10 SEEN /hpf 5-10 [facility] URINE OB DIP B/Oon Glucose Ql (U) Negative Neg mg/dL [facility] Interpretation and review of laboratory results Normal [facility] Protein.monoclonal (U) [Mass/Vol] Negative Neg mg/dL [facility] Urinalysis, Completeon 11-15 AMORPHOUS 1+ Normal [facility] Comment on above: Order Comment: CLEAN CATCH Performed By: #### L 400.0001 #### [facility] [address] [place], [place], [address] BACTERIA 2+ /hpf Normal None Seen [facility] Comment on above: Order Comment: CLEAN CATCH Performed By: #### L 400.0001 #### [facility] [address] [place], [place], [id number] CA OX CRYSTAL 2+ /hpf Normal [facility] Comment on above: Order Comment: CLEAN CATCH Performed By: #### L 400.0001 #### [facility] [address] [place], [address] EPI,SQUAMOUS 5-10 SEEN Normal 5-10 [facility] Comment on above: Order Comment: CLEAN CATCH Performed By: #### L 400.0001 #### [facility] [address] [place], [address] RBC 0-5 SEEN Normal 0-5 [facility] Comment on above: Order Comment: CLEAN CATCH Performed By: #### L 400.0001 #### [facility] [address] [place], [address] WBC 0-5 SEEN Normal 0-5 [facility] Comment on above: Order Comment: CLEAN CATCH Performed By: #### L 400.0001 #### [facility] [address] [place], [address] Mucus Ql (Urine sed) 0 SEEN Normal [facility] Comment on above: Order Comment: CLEAN CATCH Performed By: #### L 400.0001 #### [facility] [address] [place], [place], [address] Urine clarityOrdered By: Solomon on 11-15-2024 Clarity (U) Clear Clear [facility] Urine color determinationOrd ered By: Whit Patel on 11-15-2024 Color (U) Yellow Yellow [facility] Urine cultureOrdered By: Solomon on 11-15-2024 Bacteria identified Cx Nom (U) Positive Abnormal [facility] Urine glucose detectionOrder ed By: Whit Patel on 11-15-2024 Glucose Ql (U) 1000 mg/dl High Normal [facility] Urine leukocyte esterase det ection by dipstickOrdered By: Whit Schulte on 11-15-2024 Leukocyte esterase Test strip Ql (U) Negative Negative [facility] Urine pHOrdered By: Whit Collado on 11-15-2024 pH (U) 6.0 [pH] 5.0 - 8.0 [facility] Urine sediment bacteria coun t by microscopy (number/high power field)Ordered By: Whit Patel on 11-15-2024 Bacteria LM.HPF (Urine sed) [#/Area] 2 /[HPF] None Seen [facility] Urine specific gravity measu rementOrdered By: Whit Patel on 11-15-2024 Specific gravity (U) [Rel density] 1.030 1.002-1.030 [facility] Urine urobilinogen measureme ntOrdered By: Whit Patel on 11-15-2024 Urobilinogen Ql (U) 1 mg/dl High Normal [facility] White blood cell countOrdere d By: Whit Patel on 11-15-2024 White blood cell count 0-5 SEEN /hpf 0-5 [facility] URINE OB DIP B/Oon 5 Glucose Ql (U) Negative Neg mg/dL [facility] Protein.monoclonal (U) [Mass/Vol] Negative Neg mg/dL [facility] Biophysical profile.tammy dy movement USon 11-08-2024 [facility] Radiology Study observation (narrative) [facility] BILE ACIDS FRACT BLDon 11-05 CHENODEOXYCHOLIC ACID 0.8 umol/L Normal 0.0-3.4 [facility] Comment on above: Order Comment: Speci men Type: BLOOD SPECIMENOrdering Facility: [facility] Address: [address] [place] [address] Performed By: #### B ILE ####[facility] [id number] [place] [address] CHOLIC ACID 0.8 umol/L Normal 0.0-1.9 [facility] Comment on above: Order Comment: Speci men Type: BLOOD SPECIMENOrdering Facility: [facility] Address: [address] [place] [address] Performed By: #### B ILE ####[facility] LABORATORIESCLIA [id number] [place] [address] DEOXYCHOLIC ACID 1.8 umol/L Normal 0.0-2.5 [facility] Comment on above: Order Comment: Speci men Type: BLOOD SPECIMENOrdering Facility: [facility] Address: [address] [place] [address] Performed By: #### B ILE ####[facility] LABORATORIESCLIA [id number] [place] [address] TOTAL BILE ACIDS 3.7 umol/L Normal 0.0-7.0 [facility] Comment on above: Order Comment: Speci men Type: BLOOD SPECIMENOrdering Facility: [facility] Address: [address] [place] [address] Result Comment: INTE RPRETIVE INFORMATION: Bile Acids, Fractionated and TotalThis test was developed and its performance characteristicsdetermined by [employer]. It has not been cleared orapproved by the [place] Food and Drug Administration. This test wasperformed in a CLIA certified laboratory and is intended forclinical purposes.Performed By: [facility] [address] [place], [place] [id number] Director: Cristofer Voss MD, PhDCLIA Number: [id number] Performed By: #### B ILE ####[facility] LABORATORIESCLIA [id number] [place] [address] URSODEOXYCHOLIC ACID 0.3 umol/L Normal 0.0-1.0 [facility] Comment on above: Order Comment: Speci men Type: BLOOD SPECIMENOrdering Facility: [facility] Address: [address] [place], [place] [address] Performed By: #### B ILE ####[facility] LABORATORIESCLIA [id number] [place] [address] BILE ACIDS, TOTALon 11-06-19 25 Bile acid [Moles/Vol] 6.0 umol/L Normal <7.5 [facility] Comment on above: Order Comment: Speci men Type: BLOOD SPECIMENOrdering Facility: [facility] Address: [address] [place], [place] [address] [place] [address] Result Comment: Refe rence interval applies to [...] 10.4 umol/L Performed By: #### B FREDERICK ####[facility] LABCLIA [id number] [place] [address] [place] [facility] Comprehensive metabolic 2000 panelOrdered By: Jayne Brunner on 11-05-2024 Albumin [Mass/Vol] 3.6 g/dL Low 3.9 - 4.9 g/dL [facility] ALP [Catalytic activity/Vol] 83 U/L 34 - 123 U/L [facility] ALT [Catalytic activity/Vol] 10 U/L 7 - 38 U/L [facility] Anion gap [Moles/Vol] 11 mmol/L 8 - 15 mmol/L [facility] AST [Catalytic activity/Vol] 9 U/L Low 13 - 35 U/L [facility] Bilirubin [Mass/Vol] 0.3 mg/dL 0.2 - 1 .3 mg/dL [facility] Calcium [Mass/Vol] 9 mg/dL 8.5 - 10. 2 mg/dL [facility] Chloride [Moles/Vol] 103 mmol/L 98 - 10 7 mmol/L [facility] CO2 [Moles/Vol] 21 mmol/L Low 22 - 30 mmol/L [facility] Creatinine [Mass/Vol] 0.42 mg/dL Low 0.58 - 0.96 mg/dL [facility] GFR/1.73 sq M.predicted among non-blacks MDRD (S/P/Bld) [Vol rate/Area] 136 mL/min/{1.73_m2} - PINF [facility] Comment on above: Estimated Glomerular Filtration Rate [...] 115 mg/dL High 74 - 99 mg/dL [facility] Comment on above: The [place] Diabete s Association (ADA) provides guidance for [...] Standards of Medical Care in Diabetes 2016, [place] [employer]. Diabetes Care. 2016.39(Suppl 1). Interpretation and review of laboratory results Abnormal [facility] Potassium [Moles/Vol] 3.8 mmol/L 3.7 - 5.1 mmol/L [facility] Protein [Mass/Vol] 6.9 g/dL 6.3 - 8.0 g/dL [facility] Sodium [Moles/Vol] 135 mmol/L Low 136 - 144 mmol/L [facility] Urea nitrogen [Mass/Vol] 7 mg/dL 7 - 21 mg/dL [facility] Comprehensive metabolic 2000 panelon 11-05-2024 Albumin [Mass/Vol] 3.6 g/dL Low 3.9-4.9 [facility] Comment on above: Order Comment: Speci men Type: BLOOD SPECIMENOrdering Facility: [facility] Address: [address] [place] [address] Performed By: #### 2 4323-8 ####[facility] BEACHESWNCLIA [id number] [place] [address] [place] ALP [Catalytic activity/Vol] 83 U/L Normal 34-123 [facility] Comment on above: Order Comment: Speci men Type: BLOOD SPECIMENOrdering Facility: [facility] Address: [address] [place] [address] Performed By: #### 2 4323-8 ####[facility] HOSPITALNCLIA [id number] [place] [address] [place] ALT [Catalytic activity/Vol] 10 U/L Normal 7-38 [facility] Comment on above: Order Comment: Speci men Type: BLOOD SPECIMENOrdering Facility: [facility] Address: [address] [place] [address] Performed By: #### 2 4323-8 ####[facility]ALTHLIA [id number] [place] [address] [place] Anion gap [Moles/Vol] 11 mmol/L Normal 8-15 [facility] Comment on above: Order Comment: Speci men Type: BLOOD SPECIMENOrdering Facility: [facility] Address: [address] [place] [address] Performed By: #### 2 4323-8 ####[facility] HOSPITALNCLIA [id number] [place] [address] [place] AST [Catalytic activity/Vol] 9 U/L Low 13-35 [facility] Comment on above: Order Comment: Speci men Type: BLOOD SPECIMENOrdering Facility: [facility] Address: [address] [place] [address] Performed By: #### 2 4323-8 ####[facility] VICKYRYANNEWNCLIA [id number] [place] [address] [place] Bilirubin [Mass/Vol] 0.3 mg/dL Normal 0.2-1.3 [facility] Comment on above: Order Comment: Speci men Type: BLOOD SPECIMENOrdering Facility: [facility] Address: [address] [place] [address] Performed By: #### 2 4323-8 ####[facility] VICKYLALIA [id number] [place] [address] [place] Calcium [Mass/Vol] 9.0 mg/dL Normal 8.5-10.2 [facility] Comment on above: Order Comment: Speci men Type: BLOOD SPECIMENOrdering Facility: [facility] Address: [address] [place] [address] Performed By: #### 2 4323-8 ####[facility] VICKYRYANNEWKLAUSLIA [id number] [place] [address] [place] Chloride [Moles/Vol] 103 mmol/L Normal 98-107 [facility] Comment on above: Order Comment: Speci men Type: BLOOD SPECIMENOrdering Facility: [facility] Address: [address] [place] [address] Performed By: #### 2 4323-8 ####[facility] MILLTOWNCLIA [id number] [place] [address] [place] CO2 [Moles/Vol] 21 mmol/L Low 22-30 [facility] Comment on above: Order Comment: Speci men Type: BLOOD SPECIMENOrdering Facility: [facility] Address: [address] [place] [address] Performed By: #### 2 4323-8 ####[facility] [id number] [place] [address] [place] Creatinine [Mass/Vol] 0.42 mg/dL Low 0.58-0.96 [facility] Comment on above: Order Comment: Gume escobedo Type: BLOOD SPECIMENOrdering Facility: [facility] Address: [address] [place] [address] Performed By: #### 2 4323-8 ####[facility] [id number] [place] [address] [place] Creatinine and Glomerular filtration rate.predicted panel (S/P/Bld) 136 mL/min/1.73m??? Normal >=60 [facility] Comment on above: Order Comment: Gume escobedo Type: BLOOD SPECIMENOrdering Facility: [facility] Address: [address] [place] [address] Result Comment: Ascencion mated Glomerular Filtration Rate [...] actual GFR. Performed By: #### 2 4323-8 ####[facility] [id number] [place] [address] [place] Glucose [Mass/Vol] 115 mg/dL High 74-99 [facility] Comment on above: Order Comment: Gume escobedo Type: BLOOD SPECIMENOrdering Facility: [facility] Address: [address] [place] [address] Result Comment: The [place] Diabetes Association (ADA) provides guidance for cutoff [...] Standards of Medical Care in Diabetes 2016, [place] Diabetes [employer]. Diabetes Care. 2016.39(Suppl 1). Performed By: #### 2 4323-8 ####[facility] [id number] [place] [address] [place] Potassium [Moles/Vol] 3.8 mmol/L Normal 3.7-5.1 [facility] Comment on above: Order Comment: Speci men Type: BLOOD SPECIMENOrdering Facility: [facility] Address: [address] [place] [address] Performed By: #### 2 4323-8 ####[facility] [id number] [place] [address] [place] Protein [Mass/Vol] 6.9 g/dL Normal 6.3-8.0 [facility] Comment on above: Order Comment: Speci men Type: BLOOD SPECIMENOrdering Facility: [facility] Address: [address] [place] [address] Performed By: #### 2 4323-8 ####[facility] [id number] [place] [address] [place] Sodium [Moles/Vol] 135 mmol/L Low 136-144 [facility] Comment on above: Order Comment: Speci men Type: BLOOD SPECIMENOrdering Facility: [facility] Address: [address] [place] [address] Performed By: #### 2 4323-8 ####[facility] [id number] [place] [address] [place] Urea nitrogen [Mass/Vol] 7 mg/dL Normal 7-21 [facility] Comment on above: Order Comment: Speci men Type: BLOOD SPECIMENOrdering Facility: [facility] Address: [address] [place] [address] Performed By: #### 2 4323-8 ####[facility] HAROLDO [facility] HOSPITALVERNON [id number] [place] [id number] [place] URINE OB DIP B/Oon 5 Glucose Ql (U) 250 mg/dL Neg [facility] Interpretation and review of laboratory results Normal [facility] Protein.monoclonal (U) [Mass/Vol] Negative Neg mg/dL [facility] CNCNPATEDon 11-04-2024 CNCNPATED Normal [facility] CNOVon 11-04-2024 CNOV Normal [facility] CNPNon 11-02-2024 CNPN Normal [facility] Examination level ultrasound on 11-02-2024 [facility] Radiology Study observation (narrative) [facility] URINE OB DIP B/Oon 5 Glucose Ql (U) 1000 mg/dL Neg [facility] Interpretation and review of laboratory results Abnormal [facility] Protein.monoclonal (U) [Mass/Vol] Negative Neg mg/dL [facility] CNPNon 10-29-2024 CNPN Normal [facility] CNPNon 10-27-2024 CNPN Normal [facility] CBC panel Auto (Bld)on 10-25 Erythrocyte distribution width (RBC) [Ratio] 12.9 % 11.5 - 15.0 % [facility] Hematocrit (Bld) [Volume fraction] 36 % 36.0 - 46.0 % [facility] Hemoglobin (Bld) [Mass/Vol] 12.4 g/dL 11.5 - 15.5 g/dL [facility] Interpretation and review of laboratory results Normal [facility] MCH (RBC) [Entitic mass] 29.5 pg 26.0 - 34.0 pg [facility] MCHC (RBC) [Mass/Vol] 34.4 g/dL 30.5 - 36.0 g/dL [facility] MCV (RBC) [Entitic vol] 85.5 fL 80.0 - 100.0 fL [facility] Nucleated RBC (Bld) [#/Vol] NINF [facility] Platelet mean volume (Bld) [Entitic vol] 9.6 fL 9.0 - 12.7 fL [facility] Platelets (Bld) [#/Vol] 274 10*3/uL [facility] RBC (Bld) [#/Vol] 4.21 10*6/uL 3.90 - 5.2 0 m/uL [facility] WBC (Bld) [#/Vol] 8.6 10*3/uL [facility] Erythrocyte distribution width (RBC) [Ratio] 12.9 % Normal 11.5-15.0 [facility] Comment on above: Order Comment: Speci men Type: BLOOD SPECIMENOrdering Facility: [facility] Address: [address] [place] [address] Performed By: #### 5 8410-2 ####[facility] HOSPITALKLAUSRaymond [id number] [place] [address] [place] Hematocrit (Bld) [Volume fraction] 36.0 % Normal 36.0-46.0 [facility] Comment on above: Order Comment: Speci men Type: BLOOD SPECIMENOrdering Facility: [facility] Address: [address] [place] [address] Performed By: #### 5 8410-2 ####[facility] HOSPITALRaymond [id number] [address] [place] Hemoglobin (Bld) [Mass/Vol] 12.4 g/dL Normal 11.5-15.5 [facility] Comment on above: Order Comment: Speci men Type: BLOOD SPECIMENOrdering Facility: [facility] Address: [address] [place], [place] [address] Performed By: #### 5 8410-2 ####[facility] HOSPITALNCLI [id number] [place] [address] [place] MCH (RBC) [Entitic mass] 29.5 pg Normal 26.0-34.0 [facility] Comment on above: Order Comment: Speci men Type: BLOOD SPECIMENOrdering Facility: [facility] Address: [address] [place] [address] Performed By: #### 5 8410-2 ####[facility] VICKYRoyaNCLIA [id number] [place] [address] [place] MCHC (RBC) [Mass/Vol] 34.4 g/dL Normal 30.5-36.0 [facility] Comment on above: Order Comment: Speci men Type: BLOOD SPECIMENOrdering Facility: [facility] Address: [address] [place] [address] Performed By: #### 5 8410-2 ####[facility] HOSPITALKLAUSA [id number] [place] [address] [place] MCV (RBC) [Entitic vol] 85.5 fL Normal 80.0-100.0 [facility] Comment on above: Order Comment: Speci men Type: BLOOD SPECIMENOrdering Facility: [facility] Address: [address] [place] [address] Performed By: #### 5 8410-2 ####[facility] HOSPITALA [id number] [place] [address] [place] Nucleated RBC (Bld) [#/Vol] 10*3/uL Normal <0.01 [facility] Comment on above: Order Comment: Speci men Type: BLOOD SPECIMENOrdering Facility: [facility] Address: [address] [place] [address] Performed By: #### 5 8410-2 ####[facility] HOSPITALNCLIA [id number] [place] [address] [place] Platelet mean volume (Bld) [Entitic vol] 9.6 fL Normal 9.0-12.7 [facility] Comment on above: Order Comment: Speci men Type: BLOOD SPECIMENOrdering Facility: [facility] Address: [address] [place] [address] Performed By: #### 5 8410-2 ####[facility] HEALTHLIA [id number] [place] [address] [place] Platelets (Bld) [#/Vol] 274 10*3/uL Normal 150-400 [facility] Comment on above: Order Comment: Speci men Type: BLOOD SPECIMENOrdering Facility: [facility] Address: [address] [place] [address] Performed By: #### 5 8410-2 ####[facility] VICKYNOMENCLIA [id number] [place] [address] [place] RBC (Bld) [#/Vol] 4.21 10*6/uL Normal 3.90-5.20 [facility] Comment on above: Order Comment: Speci men Type: BLOOD SPECIMENOrdering Facility: [facility] Address: [address] [place] [address] Performed By: #### 5 8410-2 ####[facility] HOSPITALNCLIA [id number] [place] [address] [place] WBC (Bld) [#/Vol] 8.60 10*3/uL Normal 3.70-11.00 [facility] Comment on above: Order Comment: Speci men Type: BLOOD SPECIMENOrdering Facility: [facility] Address: [address] [place] [address] Performed By: #### 5 8410-2 ####[facility] HOSPITALNCLIA [id number] [place] [address] [place] Comprehensive metabolic 2000 panelOrdered By: Aquiles Denny on 10-25-2024 Albumin [Mass/Vol] 3.6 g/dL Low 3.9 - 4.9 g/dL [facility] ALP [Catalytic activity/Vol] 82 U/L 34 - 123 U/L [facility] ALT [Catalytic activity/Vol] 11 U/L 7 - 38 U/L [facility] Anion gap [Moles/Vol] 14 mmol/L 8 - 15 mmol/L [facility] AST [Catalytic activity/Vol] 9 U/L Low 13 - 35 U/L [facility] Bilirubin [Mass/Vol] 0.2 mg/dL 0.2 - 1 .3 mg/dL [facility] Calcium [Mass/Vol] 9.3 mg/dL 8.5 - 10. 2 mg/dL [facility] Chloride [Moles/Vol] 104 mmol/L 98 - 10 7 mmol/L [facility] CO2 [Moles/Vol] 18 mmol/L Low 22 - 30 mmol/L [facility] Creatinine [Mass/Vol] 0.39 mg/dL Low 0.58 - 0.96 mg/dL [facility] GFR/1.73 sq M.predicted among non-blacks MDRD (S/P/Bld) [Vol rate/Area] 138 mL/min/{1.73_m2} - PINF [facility] Comment on above: Estimated Glomerular Filtration Rate [...] 103 mg/dL High 74 - 99 mg/dL [facility] Comment on above: The [place] Diabete s Association (ADA) provides guidance for [...] Standards of Medical Care in Diabetes 2016, [place] [employer] Association. Diabetes Care. 2016.39(Suppl 1). Interpretation and review of laboratory results Abnormal [facility] Potassium [Moles/Vol] 3.9 mmol/L 3.7 - 5.1 mmol/L [facility] Protein [Mass/Vol] 7 g/dL 6.3 - 8.0 g/dL [facility] Sodium [Moles/Vol] 136 mmol/L 136 - 144 mmol/L [facility] Urea nitrogen [Mass/Vol] 5 mg/dL Low 7 - 21 mg/dL [facility] Comprehensive metabolic 2000 panelon 10-25-2024 Albumin [Mass/Vol] 3.6 g/dL Low 3.9-4.9 [facility] Comment on above: Order Comment: Speci men Type: BLOOD SPECIMENOrdering Facility: [facility] Address: [address] [place] [address] Performed By: #### 2 4323-8 ####[facility] HAROLDO MILLTOWNCLIA [id number] [place] [address] [place] ALP [Catalytic activity/Vol] 82 U/L Normal 34-123 [facility] Comment on above: Order Comment: Speci men Type: BLOOD SPECIMENOrdering Facility: [facility] Address: [address] [place] [address] Performed By: #### 2 4323-8 ####[facility] MILLTOWNCLIA [id number] [place] [address] [place] [facility] ALT [Catalytic activity/Vol] 11 U/L Normal 7-38 [facility] Comment on above: Order Comment: Speci men Type: BLOOD SPECIMENOrdering Facility: [facility] Address: [address] [place] [address] Performed By: #### 2 4323-8 ####[facility] MILLTOWNCLIA [id number] [place] [address] [place] Anion gap [Moles/Vol] 14 mmol/L Normal 8-15 [facility] Comment on above: Order Comment: Speci men Type: BLOOD SPECIMENOrdering Facility: [facility] Address: [address] [place] [address] Performed By: #### 2 4323-8 ####[facility] MILLTOWNCLIA [id number] [place] [address] [place] AST [Catalytic activity/Vol] 9 U/L Low 13-35 [facility] Comment on above: Order Comment: Speci men Type: BLOOD SPECIMENOrdering Facility: [facility] Address: [address] [place] [address] Performed By: #### 2 4323-8 ####[facility] BEACHESWNCLIA [id number] [place] [address] [place] Bilirubin [Mass/Vol] 0.2 mg/dL Normal 0.2-1.3 [facility] Comment on above: Order Comment: Speci men Type: BLOOD SPECIMENOrdering Facility: [facility] Address: [address] [place] [address] Performed By: #### 2 4323-8 ####[facility] HOSPITALNCLIA [id number] [place] [address] [place] Calcium [Mass/Vol] 9.3 mg/dL Normal 8.5-10.2 [facility] Comment on above: Order Comment: Speci men Type: BLOOD SPECIMENOrdering Facility: [facility] Address: [address] [place] [address] Performed By: #### 2 4323-8 ####[facility] HOSPITALNCLIA [id number] [place] [address] [place] Chloride [Moles/Vol] 104 mmol/L Normal 98-107 [facility] Comment on above: Order Comment: Speci men Type: BLOOD SPECIMENOrdering Facility: [facility] Address: [address] [place] [address] Performed By: #### 2 4323-8 ####[facility] HOSPITALNCLIA [id number] [place] [address] [place] CO2 [Moles/Vol] 18 mmol/L Low 22-30 [facility] Comment on above: Order Comment: Speci men Type: BLOOD SPECIMENOrdering Facility: [facility] Address: [address] [place] [address] Performed By: #### 2 4323-8 ####[facility] VICKYNOMENCMOUNTAIN WEST MEDICAL CENTER [id number] [place] [address] [place] Creatinine [Mass/Vol] 0.39 mg/dL Low 0.58-0.96 [facility] Comment on above: Order Comment: Speci men Type: BLOOD SPECIMENOrdering Facility: [facility] Address: [address] [place] [address] Performed By: #### 2 4323-8 ####[facility] HOSPITALNCLI [id number] [place] [address] [place] Creatinine and Glomerular filtration rate.predicted panel (S/P/Bld) 138 mL/min/1.73m??? Normal >=60 [facility] Comment on above: Order Comment: Speci men Type: BLOOD SPECIMENOrdering Facility: [facility] Address: [address] [place] [address] Result Comment: Ascencion mated Glomerular Filtration Rate [...] actual GFR. Performed By: #### 2 4323-8 ####[facility] HOSPITALNCLIA [id number] [place] [address] [place] Glucose [Mass/Vol] 103 mg/dL High 74-99 [facility] Comment on above: Order Comment: Speci men Type: BLOOD SPECIMENOrdering Facility: [facility] Address: [address] [place] [address] Result Comment: The [place] Diabetes Association (ADA) provides guidance for cutoff [...] Standards of Medical Care in Diabetes 2016, [place] [employer]. Diabetes Care. 2016.39(Suppl 1). Performed By: #### 2 4323-8 ####[facility] BEACHESWDELIA [id number] [place] [address] [place] Potassium [Moles/Vol] 3.9 mmol/L Normal 3.7-5.1 [facility] Comment on above: Order Comment: Speci men Type: BLOOD SPECIMENOrdering Facility: [facility] Address: [address] [place] [address] Performed By: #### 2 4323-8 ####[facility]TER[facility] HEALTHLIA [id number] [place] [address] [place] Protein [Mass/Vol] 7.0 g/dL Normal 6.3-8.0 [facility] Comment on above: Order Comment: Speci men Type: BLOOD SPECIMENOrdering Facility: [facility] Address: [address] [place] [address] Performed By: #### 2 4323-8 ####[facility] [id number] [place] [address] [place] Sodium [Moles/Vol] 136 mmol/L Normal 136-144 [facility] Comment on above: Order Comment: Speci men Type: BLOOD SPECIMENOrdering Facility: [facility] Address: [address] [place] [address] Performed By: #### 2 4323-8 ####[facility] [id number] [place] [address] [place] Urea nitrogen [Mass/Vol] 5 mg/dL Low 7-21 [facility] Comment on above: Order Comment: Gume escobedo Type: BLOOD SPECIMENOrdering Facility: [facility] Address: [address] [place] [address] Performed By: #### 2 4323-8 ####[facility] [id number] [place] [address] [place] [id number] 10-25-2024 ECG01 Normal [facility] PARVOVIRUS B19 IGG+Mon 10-25 PARVO B19 IGG, QUAL Positive Abnormal Negative [facility] Comment on above: Order Comment: Gume escobedo Type: BLOOD SPECIMENOrdering Facility: [facility] Address: [address] [place] [address] Result Comment: Parv ovirus B19 virus IgG [...] Enzyme Immunoassay. Performed By: #### P ARV ####[facility] LABCLIA [id number] [address] [place] PARVO B19 IGM, QUAL Negative Normal Negative [facility] Comment on above: Order Comment: Gume escobedo Type: BLOOD SPECIMENOrdering Facility: [facility] Address: [address] [place] [address] Result Comment: Parv ovirus B19 virus IgM [...] Enzyme Immunoassay. Performed By: #### P ARV ####[facility] LABCLIA [id number] [facility] [id number] [id number] [place] URINE OB DIP B/OOrdered By: Renetta Petersen on 10-25-2024 Glucose Ql (U) Negative Neg mg/dL [facility] Protein.monoclonal (U) [Mass/Vol] Negative Neg mg/dL [facility] Urine Cultureon 10-20-2024 URC Urine Culture #1 Below infection level. Streptococcus agalactiae (B) [place] Count <1000 Mixed Gram Positive Organisms Mixed Gram Positive Organisms MIXC Mixed contaminants. Submit a new specimen if indicated. Streptococcus agalactiae (B): REACTION Ampicillin Islt STEF <=0.25 cefTRIAXone Islt STEF <=0.12 S Clindamycin.induced Susc Islt Linezolid Islt STEF <=2 S Vancomycin Islt STEF 0.5 S Normal [facility] Comment on above: Performed By: #### M 100.2200 ####[facility] [id number] [place], [place], [address] CNPNon 10-19-2024 CNPN Normal [facility] URINE OB DIP B/Oon Glucose Ql (U) Negative Neg mg/dL [facility] Interpretation and review of laboratory results Normal [facility] Protein.monoclonal (U) [Mass/Vol] Negative Neg mg/dL [facility] Bedside Glucoseon 10-16-2024 FINGERSTICK GLU 106 mg/dL Normal 74-106 [facility] Comment on above: Result Comment: ELLEN ZAMBRANO OF PATIENT CARE PER NURSING PROTOCOL Performed By: #### B TS, L100.0100 #### [facility] [address] [place], [place], [id number] Bilirubin Test strip Ql (U)O rdered By: Mariajose Nickerson on 10-16-2024 Bilirubin Ql (U) Negative Negative [facility] Glucose measurement at bedsi deOrdered By: Mariajose Nickerson on 10-16-2024 Glucose [Mass/Vol] 106 mg/dL 74-106 [facility] Comment on above: MANAGEMENT OF PATIEN T CARE PER NURSING PROTOCOL Ketones Test strip Ql (U)Ord ered By: Mariajose Nickerson on 10-16-2024 Ketones Ql (U) Negative Negative [facility] Microscopic analysis of urin e for red blood cells (RBC)Ordered By: Mariajose Nickerson on 10-16-2024 Microscopic analysis of urine for red blood cells (RBC) 0 SEEN /hpf 0-5 [facility] Mucus LM Ql (Urine sed)Order ed By: Mariajose Nickerson on 10-16-2024 Mucus Ql (Urine sed) 0 SEEN /hpf [facility] Nitrite Test strip Ql (U)Ord ered By: Mariajose Nickerson on 10-16-2024 Nitrite Ql (U) Negative Negative [facility] OB Triage Physician Noteon 0 10-16-2024 OB Triage Physician Note [facility] Medical Records Department [address] [place] [address] OB Triage Physician Note 10/16/24 1838 MR#: [id number] Acct: [id number] Name: MELISSA BYRNE Rep #: [id number] : 1995 29 From: Mariajose Nickerson [facility] PCP: Dr. Jamari Byrne MD Status:REG CLI Y Location: [place] [address]-1 HPI - General HPI Narrative MELISSA BYRNE, [...] Nickerson; Dr. Jamari Byrne MD Signed Normal [facility] Protein Test strip Ql (U)Ord ered By: Mariajose Nickerson on 10-16-2024 Protein Ql (U) 30 mg/dl High Negative [facility] Squamous epithelial cells de tection in urine sediment by light microscopyOrdered By: Mariajose Nickerson on 10-16-2024 Epithelial cells.squamous LM Ql (Urine sed) 5-10 SEEN /hpf - [facility] Urinalysis, Completeon 10-16 EPI,SQUAMOUS 5-10 SEEN Normal - [facility] Comment on above: Order Comment: CLEAN CATCH Performed By: #### Jo TS, L100.0100 #### [facility] [address] [place], [address] BACTERIA 0 SEEN Normal None Seen [facility] Comment on above: Order Comment: CLEAN CATCH Performed By: #### Jo TS, L100.0100 #### [facility] [address] [place], [address] Mucus Ql (Urine sed) 0 SEEN Normal [facility] Comment on above: Order Comment: CLEAN CATCH Performed By: #### Jo TS, L100.0100 #### [facility] [address] [place], [address] RBC 0 SEEN Normal 0-5 [facility] Comment on above: Order Comment: CLEAN CATCH Performed By: #### Jo TS, L100.0100 #### [facility] [address] [place], [address] WBC 0 SEEN Normal 0-5 [facility] Comment on above: Order Comment: CLEAN CATCH Performed By: #### B TS, L100.0100 #### [facility] [address] [place], [address] Urine clarityOrdered By: Yoli Nickerson on 10-16-2024 Clarity (U) Sl. Cloudy Clear [facility] Urine color determinationOrd ered By: Mariajose Nickerson on 10-16-2024 Color (U) Yellow Yellow [facility] Urine cultureOrdered By: Lizet Julian on 10-16-2024 Bacteria identified Cx Nom (U) Streptococcus agalactiae (B) Abnormal [facility] Bacteria identified Cx Nom (U) Positive Abnormal [facility] Urine glucose detectionOrder ed By: Mariajose Nickerson on 10-16-2024 Glucose Ql (U) 50 mg/dl High Normal [facility] Urine leukocyte esterase det ection by dipstickOrdered By: Mariajose Nickerson on 10-16-2024 Leukocyte esterase Test strip Ql (U) 25 /ul High Negative [facility] Urine pHOrdered By: Mariajose Nickerson on 10-16-2024 pH (U) 6.0 [pH] 5.0 - 8.0 [facility] Urine sediment bacteria coun t by microscopy (number/high power field)Ordered By: Mariajose Nickerson on 10-16-2024 Bacteria LM.HPF (Urine sed) [#/Area] 0 /[HPF] None Seen [facility] Urine specific gravity measu rementOrdered By: Mariajose Nickerson on 10-16-2024 Specific gravity (U) [Rel density] 1.025 1.002-1.030 [facility] Urine urobilinogen measureme ntOrdered By: Mariajose Nickerson on 10-16-2024 Urobilinogen Ql (U) 1 mg/dl High Normal [facility] White blood cell countOrdere d By: Mariajose Nickerson on 10-16-2024 White blood cell count 0 SEEN /hpf 0-5 [facility] ECHO FETALon 10-12-2024 + -----+-+ Pediatric Cardiology Echocardiogram Report + -----+-+ NAME: MELISSA BYRNE : 1995 PT ID#: [id number] Age: 29 years Sex: F STUDY DATE: 10/12/2024 10:05:33 AM ADA: 12/18/2024 GA: 30w3d Image Quality: Technically difficult and adequate. Referring Physician: Pamela Haskins Diagnosing Physician: Pamela Haskins Bdr: Melissa Pineda RDMS, RDCS 2nd Bdr: Diagnosis: [id number] abnormality and damage, single fetus or unspecified Procedure Code: 53379, 71714, 25140 Echo, Complete (w/Doppler and color) Exam Location: [facility] (). Indications: Evaluate cardiac anatomy and [...] rate and rhythm. HR 140 bpm Mechanical GA 84 ms Segmental Anatomy, Cardiac Position and [...] content not included)... [facility] FETALon 10-12-2024 + --- -----+-+ Pediatric Cardiology Echocardiogram Report + -----+-+ NAME: MELISSA BYRNE : 1995 PT ID#: [id number] Age: 29 years Sex: F STUDY DATE: 10/12/2024 10:05:33 AM ADA: 12/18/2024 GA: 30w3d Image Quality: Technically difficult and adequate. Referring Physician: Pamela Haskins Diagnosing Physician: Pamela Haskins Bdr: Melissa Pineda RDMS, RDCS 2nd Bdr: Diagnosis: [id number] abnormality and damage, single fetus or unspecified Procedure Code: 90006, 53386, 92583 Echo, Complete (w/Doppler and color) Exam Location: [facility] (). Indications: Evaluate cardiac anatomy and [...] rate and rhythm. HR 140 bpm Mechanical GA 84 ms Segmental Anatomy, Cardiac Position and [...] on 10/12/2024 at 12:38:17 PM Final [employer] [facility] Image : [id number] goDynamicsSISUID See Link below for Image Normal [facility] CNPNon 10-08-2024 CNPN Normal [facility] Bacteria Ur Culton Bacteria identified Cx Nom (U) ORGANISM ID: 1 10,000 -<50,000 CFU/ml Normal urogenital hima Streptococcus agalactiae (Group B streptococcus) was identified in this specimen, which is clinically relevant if the individual is . Normal [facility] Comment on above: Performed By: #### 6 30-4 ####[facility] LABCLIA [id number] [address] [place] Prot/Creat Uron 10-04-2024 Protein/Creatinine (U) [Mass ratio] 0.10 mg/mg Normal <0.15 [facility] Comment on above: Order Comment: Speci men Type: URINE SPECIMENOrdering Facility: [facility] Address: [address] [place] [address] Result Comment: Adul t Proteinuria Categories:<0.15 mg/mg is considered normal to mildly increased0.15 - 0.50 mg/mg is considered moderately increased>0.50 mg/mg is considered severely increasedKDIGO. (2013). KDIGO 2012 Clinical Practice Guideline for the Evaluation and Management of Chronic Kidney Disease. Official Journal of the International Society of Nephrology, 3(1), 1-150. Performed By: #### 2 890-2 ####[facility] LABCLIA [id number] [address] [place] [facility] Protein/Creatinine (U) [Mass ratio]on 10-04-2024 Creatinine (U) [Mass/Vol] 67.2 mg/dL Normal 20.0-300.0 [facility] Comment on above: Order Comment: Speci men Type: URINE SPECIMENOrdering Facility: [facility] Address: [address] [place] [address] Performed By: #### 2 890-2 ####[facility] LABCLIA [id number] [place] [id number] [place] Protein (U) [Mass/Vol] 7 mg/dL Normal 0-20 [facility] Comment on above: Order Comment: Speci men Type: URINE SPECIMENOrdering Facility: [facility] Address: [address] [place], [place] [address] Performed By: #### 2 890-2 ####[facility] LABCLIA [id number] [place] [address] [place] CNPNon 10-02-2024 CNPN Normal [facility] CNPNon 09-27-2024 CNPN Normal [facility] OB Triage Physician Noteon 0 09-25-2024 OB Triage Physician Note [facility] Medical Records Department [address] [place] [address] OB Triage Physician Note 09/25/24 0934 MR#: [id number] Acct: [id number] Name: MELISSA BYRNE Rep #: [id number] : 1995 29 From: Leonie Waldron CNM PCP: Dr. Jamari Byrne MD Status:DEP CLI Y Location: [facility] HPI - General HPI Narrative MELISSA BYRNE, is a 29 F who presents at 27 weeks with ADA 12/23/24 with complaints of abdominal tightening. No vaginal bleeding, leakage of fluid or other symptoms. [facility] Medical History Seizures Asthma Osteoarthritis Diabetes [...] Waldron; Dr. Jamari Byrne MD Signed Normal [facility] BACTERIAL VAGINOSIS NAATon 0 09-24-2024 Lactobacillus crispatus+gasseri+dez senii + Gardnerella vaginalis + Atopobium vaginae rRNA SUMIT+probe Ql (Vag fld) Detected Abnormal Not detected [facility] Comment on above: Order Comment: Speci men Type: SWABOrdering Facility: [facility] Address: [address] [place] [address] Performed By: #### C VTV, BVAMP ####[facility] LABCLIA [id number] [place] [address] [place] Bacteria Ur Culton 5 Bacteria identified Cx Nom (U) ORGANISM ID: 1 10,000 -<50,000 CFU/ml Normal urogenital hima Normal [facility] Comment on above: Performed By: #### 6 30-4 ####[facility] LABCLIA [id number] [place] [address] [place] JOSUÉ/TRICHOMONAS NAATon 0 09-24-2024 C. glabrata RNA SUMIT+probe Ql (Vag fld) Not detected Normal Not detected [facility] Comment on above: Order Comment: Speci men Type: SWABOrdering Facility: [facility] Address: [address] [place] [address] Performed By: #### C VTV, BVAMP ####[facility] LABCLIA [id number] [address] [place] Josué sp DNA SUMIT+probe Ql (Vag fld) Not detected Normal Not detected [facility] Comment on above: Order Comment: Speci men Type: SWABOrdering Facility: [facility] Address: [address] [place] [address] Result Comment: The Josué species group target includes C. albicans, C. tropicalis, C. parapsilosis, and C. dubliniensis. Performed By: #### C VTV, BVAMP ####[facility] LABCLIA [id number] [place] [address] [place] T. vaginalis DNA SUMIT+probe Ql (Unsp spec) Not detected Normal Not detected [facility] Comment on above: Order Comment: Speci men Type: SWABOrdering Facility: [facility] Address: [address] [place] [address] Performed By: #### C VTV, BVAMP ####[facility] LABCLIA [id number] [place] [address] [place] CNOVon 09-24-2024 CNOV Normal [facility] CNPNon 09-24-2024 CNPN Normal [facility] UA DIP, URINE (POC)on 2024 BILIRUBIN UA (POCT) Negative Negative [facility] CLARITY UA (POCT) Clear [facility] COLOR UA (POCT) Yellow [facility] GLUCOSE UA (POCT) Negative Negative mg/dL [facility] Hemoglobin Ql (U) Negative Negative [facility] Interpretation and review of laboratory results Abnormal [facility] KETONE UA (POCT) 15 mg/dL Abnormal Negative [facility] LEUKOCYTES UA (POCT) Moderate Abnormal Negative [facility] NITRITE UA (POCT) Negative Negative [facility] PH UA (POCT) 7 4.5 - 8.0 [facility] Protein Ql (U) Negative Negative mg/dL [facility] SPECIFIC GRAVITY UA (POCT) 1.02 1.005 - 1.030 [facility] UROBILINOGEN UA (POCT) 1 Normal E.U./dL [facility] Location:[facility], [address] [facility], [place], [address] [facility] POINT OF CARE [facility] CNOVon 09-20-2024 CNOV Normal [facility] HEMOGLOBIN A1C (POC)on 09-20 HbA1c (Bld) [Mass fraction] 5.2 % 4.3 - 5.6 % [facility] Comment on above: Location:Count includes the [facility], [address], [place], [facility] Point of care (POC) Hemoglobin A1c [...] specific diabetes management situations: The POC device second shift supervisor provides a normal range of 4.2% to 6.5% for the HGBA1C POC test. However, the [place] [employer] guidelines indicate that patients with [...] anemia) that alter red blood cell lifespan. [facility] CNPNon 09-11-2024 CNPN Normal [facility] CBC W Auto Differential pane l (Bld)on 09-08-2024 Basophils (Bld) [#/Vol] 0.03 10*3/uL Normal <0.11 [facility] Comment on above: Order Comment: Speci men Type: BLOOD SPECIMENOrdering Facility: [facility] Address: [address] [place] [address] Performed By: #### 5 7021-8 ####[facility] [id number] [place] [address] [place] Basophils/100 WBC (Bld) 0.3 % Normal [facility] Comment on above: Order Comment: Speci men Type: BLOOD SPECIMENOrdering Facility: [facility] Address: [address] [place] [address] Performed By: #### 5 7021-8 ####[facility] [id number] [place] [address] [place] Differential cell count method Nom (Bld) Auto Normal [facility] Comment on above: Order Comment: Speci men Type: BLOOD SPECIMENOrdering Facility: [facility] Address: [address] [place] [address] Performed By: #### 5 7021-8 ####[facility]ALKLAUSM[facility] [id number] [place] [address] [place] Eosinophils (Bld) [#/Vol] 0.15 10*3/uL Normal <0.46 [facility] Comment on above: Order Comment: Speci men Type: BLOOD SPECIMENOrdering Facility: [facility] Address: [address] [place] [address] Performed By: #### 5 7021-8 ####[facility] [id number] [place] [address] [place] Eosinophils/100 WBC (Bld) 1.7 % Normal [facility] Comment on above: Order Comment: Speci men Type: BLOOD SPECIMENOrdering Facility: [facility] Address: [address] [place] [address] Performed By: #### 5 7021-8 ####[facility] [id number] [place] [address] [place] Erythrocyte distribution width (RBC) [Ratio] 13.6 % Normal 11.5-15.0 [facility] Comment on above: Order Comment: Speci men Type: BLOOD SPECIMENOrdering Facility: [facility] Address: [address] [place] [address] Performed By: #### 5 7021-8 ####[facility] [id number] [place] [address] [place] Hematocrit (Bld) [Volume fraction] 35.0 % Low 36.0-46.0 [facility] Comment on above: Order Comment: Speci men Type: BLOOD SPECIMENOrdering Facility: [facility] Address: [address] [place] [address] Performed By: #### 5 7021-8 ####[facility] [id number] [place] [address] [place] Hemoglobin (Bld) [Mass/Vol] 12.2 g/dL Normal 11.5-15.5 [facility] Comment on above: Order Comment: Speci men Type: BLOOD SPECIMENOrdering Facility: [facility] Address: [address] [place] [address] Performed By: #### 5 7021-8 ####[facility] [id number] [place] [address] [place] Immature granulocytes (Bld) [#/Vol] 0.06 10*3/uL Normal <0.10 [facility] Comment on above: Order Comment: Speci men Type: BLOOD SPECIMENOrdering Facility: [facility] Address: [address] [place] [address] Performed By: #### 5 7021-8 ####[facility] [id number] [place] [address] [place] Immature granulocytes/100 WBC (Bld) 0.7 % Normal [facility] Comment on above: Order Comment: Speci men Type: BLOOD SPECIMENOrdering Facility: [facility] Address: [address] [place] [address] Performed By: #### 5 7021-8 ####[facility] [id number] [place] [address] [place] Lymphocytes (Bld) [#/Vol] 2.07 10*3/uL Normal 1.00-4.00 [facility] Comment on above: Order Comment: Speci men Type: BLOOD SPECIMENOrdering Facility: [facility] Address: [address] [place] [address] Performed By: #### 5 7021-8 ####[facility]ITAL[facility]CLIA [id number] [address] [place] Lymphocytes/100 WBC (Bld) 23.7 % Normal [facility] Comment on above: Order Comment: Speci men Type: BLOOD SPECIMENOrdering Facility: [facility] Address: [address] [place] [address] Performed By: #### 5 7021-8 ####[facility] [id number] [place] [address] [place] MCH (RBC) [Entitic mass] 30.5 pg Normal 26.0-34.0 [facility] Comment on above: Order Comment: Speci men Type: BLOOD SPECIMENOrdering Facility: [facility] Address: [address] [place] [address] Performed By: #### 5 7021-8 ####[facility] [id number] [place] [address] [place] MCHC (RBC) [Mass/Vol] 34.9 g/dL Normal 30.5-36.0 [facility] Comment on above: Order Comment: Speci men Type: BLOOD SPECIMENOrdering Facility: [facility] Address: [address] [place] [address] Performed By: #### 5 7021-8 ####[facility] [id number] [place] [address] [place] MCV (RBC) [Entitic vol] 87.5 fL Normal 80.0-100.0 [facility] Comment on above: Order Comment: Speci men Type: BLOOD SPECIMENOrdering Facility: [facility] Address: [address] [place] [address] Performed By: #### 5 7021-8 ####[facility] [id number] [place] [address] [place] Monocytes (Bld) [#/Vol] 0.37 10*3/uL Normal <0.87 [facility] Comment on above: Order Comment: Speci men Type: BLOOD SPECIMENOrdering Facility: [facility] Address: [address] [place] [address] Performed By: #### 5 7021-8 ####[facility] VICKYMARKUSA [id number] [place] [address] [place] Monocytes/100 WBC (Bld) 4.2 % Normal [facility] Comment on above: Order Comment: Speci men Type: BLOOD SPECIMENOrdering Facility: [facility] Address: [address] [place] [address] Performed By: #### 5 7021-8 ####[facility]ITALNCM[facility] [id number] [place] [address] [place] Neutrophils (Bld) [#/Vol] 6.04 10*3/uL Normal 1.45-7.50 [facility] Comment on above: Order Comment: Speci men Type: BLOOD SPECIMENOrdering Facility: [facility] Address: [address] [place] [address] Performed By: #### 5 7021-8 ####[facility] [id number] [place] [address] [place] Neutrophils/100 WBC (Bld) 69.4 % Normal [facility] Comment on above: Order Comment: Speci men Type: BLOOD SPECIMENOrdering Facility: [facility] Address: [address] [place] [address] Performed By: #### 5 7021-8 ####[facility]ITALNCLIA [id number] [place] [address] [place] Nucleated RBC (Bld) [#/Vol] 10*3/uL Normal <0.01 [facility] Comment on above: Order Comment: Speci men Type: BLOOD SPECIMENOrdering Facility: [facility] Address: [address] [place] [address] Performed By: #### 5 7021-8 ####[facility] VICKYMARIANNLIA [id number] [place] [address] [place] Nucleated RBC/100 WBC (Bld) [Ratio] 0.0 /100 WBC Normal [facility] Comment on above: Order Comment: Speci men Type: BLOOD SPECIMENOrdering Facility: [facility] Address: [address] [place] [address] Performed By: #### 5 7021-8 ####[facility]ITALVERNON [id number] [place] [address] [place] Platelet mean volume (Bld) [Entitic vol] 9.5 fL Normal 9.0-12.7 [facility] Comment on above: Order Comment: Speci men Type: BLOOD SPECIMENOrdering Facility: [facility] Address: [address] [place] [address] Performed By: #### 5 7021-8 ####[facility] [id number] [place] [address] [place] Platelets (Bld) [#/Vol] 282 10*3/uL Normal 150-400 [facility] Comment on above: Order Comment: Speci men Type: BLOOD SPECIMENOrdering Facility: [facility] Address: [address] [place] [address] Performed By: #### 5 7021-8 ####[facility] H[facility]PITALRUFINOA [id number] [place] [address] [place] RBC (Bld) [#/Vol] 4.00 10*6/uL Normal 3.90-5.20 [facility] Comment on above: Order Comment: Speci men Type: BLOOD SPECIMENOrdering Facility: [facility] Address: [address] [place] [address] Performed By: #### 5 7021-8 ####[facility]ITALNCLIA [id number] [place] [address] [place] WBC (Bld) [#/Vol] 8.72 10*3/uL Normal 3.70-11.00 [facility] Comment on above: Order Comment: Speci men Type: BLOOD SPECIMENOrdering Facility: [facility] Address: [address] [place] [address] Performed By: #### 5 7021-8 ####[facility] [id number] [place] [address] [place] Reagin and Treponema pallidu m IgG and IgM [Interp]on 09-08-2024 T. pallidum IgG+IgM IA Ql (S) Non-Reactive Nonreactive [facility] T. pallidum IgG+IgM IA Ql (S) Non-Reactive Normal Nonreactive [facility] Comment on above: Order Comment: Speci men Type: BLOOD SPECIMENOrdering Facility: [facility] Address: [address] [place] [address] Performed By: #### 7 3752-8 ####[facility] LABCLIA [id number] [place] [address] [place] Reagin+T pallidum IgG+IgM Se rPl-Impon 09-08-2024 Reagin and Treponema pallidum IgG and IgM [Interp] Cannot exclude recent Treponemal infection if specimen collected within 7-10 days after appearance of suspect lesions or 2-3 weeks after an exposure. Clinical correlation is required. Normal [facility] Comment on above: Order Comment: Speci men Type: BLOOD SPECIMENOrdering Facility: [facility] Address: [address] [place] [address] Performed By: #### 7 3752-8 ####[facility] LABIA [id number] [place] [id number] [place] SYPHILIS TREPONEMAL W/REFLEX on 09-08-2024 Reagin and Treponema pallidum IgG and IgM [Interp] Cannot exclude recent Treponemal infection if specimen collected within 7-10 days after appearance of suspect lesions or 2-3 weeks after an exposure. Clinical correlation is required[facility] Examination level ultrasound on 09-03-2024 [facility] Examination level ultrasound on 09-02-2024 Radiology Study observation (narrative) [facility] Normal [facility] CNPNon 08-24-2024 CNPN Normal [facility] FETALon 08-24-2024 + --- -----+-+ Pediatric Cardiology Echocardiogram Report + -----+-+ NAME: MELISSA BYRNE : 1995 PT ID#: [id number] Age: 29 years Sex: F STUDY DATE: 08/24/2024 12:29:33 PM ADA: 12/18/2024 GA: 23w3d Image Quality: Technically difficult and inadequate. Referring Physician: Pooja Latham Diagnosing Physician: Pamela Haskins Bdr: Idalmis Hough [facility] 2nd Bdr: Diagnosis: [id number] abnormality and damage, single fetus or unspecified Procedure Code: 39841, 85522, 17502 Echo, Complete (w/Doppler and color) Exam Location: [facility] (). Indications: Evaluate cardiac anatomy and [...] rate and rhythm. HR 149 bpm Mechanical GA 110 ms Segmental Anatomy, Cardiac Position and [...] aorta, were explained to the patient. Pamela Raymond Cordonbambimacie DO *Electronically signed on 08/24/2024 at 1:34:49 PM Final (Updated) CC [employer] Image : [id number] [email or web address] See Link below for Image Normal [facility] 08-20-2024 [place] [facility] Normal [facility] 08-18-2024 [place] [employer] [facility] Normal [facility] 08-14-2024 [place] [employer] [facility] Normal [facility] 08-10-2024 [place] [employer] [facility] Normal [facility] Examination level ultrasound on 08-10-2024 Indication [...] 13 oz EFW by: Hadlock (HC-AC-FL) Extended Building Performance Specialist 7.6 mm CM 5.7 mm 61% Nicolaides [...] normal LVOT view: normal 3-vessel view: normal 0-qnowoy-xtxqfjo view: normal Heart / Thorax Situs: situs [...] Read By: Pooja Latham M.D. MATERNAL MEDICINE [facility] Radiology Study observation (narrative) [facility] URINE OB DIP B/Oon Glucose Ql (U) Negative Neg mg/dL [facility] Interpretation and review of laboratory results Normal [facility] Protein.monoclonal (U) [Mass/Vol] Negative Neg mg/dL [facility] CNPNon 08-08-2024 CNPN Normal [facility] CNPNon 08-01-2024 CNPN Normal [facility] CNOVon 07-26-2024 CNOV Normal [facility] CNOVon 07-23-2024 CNOV Normal [facility] CNPNon 07-20-2024 CNPN Normal [facility] CNPNon 07-14-2024 CNPN Normal [facility] Examination level ultrasound on 07-13-2024 Indication [...] 6 oz EFW by: Hadlock (HC-AC-FL) Extended Building Performance Specialist 4.2 mm Extremities / Bony Struc FL / HC 0.17 44% Hadlock Other Structures FHR 152 bpm Anatomy Cranium: normal Lateral ventricles: normal Choroid plexus: normal Midline falx: normal Cerebellum: normal Cisterna magna: normal Lips: normal Profile: normal 4-chamber view: normal RVOT view: normal LVOT view: normal 3-vessel view: normal 2-motfpm-kxflacr view: normal Heart / Thorax Diaphragm: normal [...] Read By: Pooja Latham M.D. MATERNAL MEDICINE [facility] Radiology Study observation (narrative) [facility] URINE OB DIP B/OOrdered By: Rebeca Vazquez on 07-13-2024 Glucose Ql (U) 100 mg/dL Neg [facility] Interpretation and review of laboratory results Normal [facility] Protein.monoclonal (U) [Mass/Vol] Negative Neg mg/dL [facility] CNPNon 07-04-2024 CNPN Normal [facility] CNPNon 07-02-2024 CNPN Normal [facility] Influenza virus A and B and SARS-CoV-2 (COVID-19) identified SUMIT+probe Nom (Resp)on 07-01-2024 FLUAV RNA SUMIT+probe Ql (Resp) Detected Abnormal Not Detected [facility] FLUBV RNA SUMIT+probe Ql (Resp) Not detected Not Detected [facility] Interpretation and review of laboratory results Abnormal [facility] SARS-CoV-2 (COVID-19) RNA SUMIT+probe Ql (Resp) Not detected Not Detected [facility] This assay is an FDA-cleared, in vitro diagnostic nucleic acid amplification test for the qualitative detection and differentiation of SARS CoV-2/ Influenza A/B from nasopharyngeal specimens collected from individuals with signs and symptoms of respiratory tract infections, and has been validated for use at [facility]. Negative results do not preclude COVID-19/ Influenza A/B infections and should not be used as the sole basis for diagnosis, treatment, or other management decisions. Testing for SARS CoV-2 is recommended only for patients who meet current clinical and/or epidemiological criteria defined by federal, state, or local public health directives. [facility] FLUAV RNA SUMIT+probe Ql (Resp) Detected Abnormal Not Detected [facility] Comment on above: Order Comment: OVER is reported when the result is greater than the clinically reportable range. Performed By: #### 5 8077-9 #### JACQUELYN LOPEZ ([id number]) [facility] ([facility]) [address] [place] [address] FLUBV RNA SUMIT+probe Ql (Resp) Not detected Normal Not Detected [facility] Comment on above: Order Comment: OVER is reported when the result is greater than the clinically reportable range. Performed By: #### 5 8077-9 #### JACQUELYN LOPEZ ([id number]) [facility] ([facility]) [address] [place] [address] SARS-CoV-2 (COVID-19) RNA SUMIT+probe Ql (Resp) Not detected Normal Not Detected [facility] Comment on above: Order Comment: OVER is reported when the result is greater than the clinically reportable range. Performed By: #### 5 8077-9 #### JACQUELYN LOPEZ ([id number]) [facility] ([facility]) [address] [place] [address] XR CHEST 2 VIEWSon XR CHEST 2 VIEWS STUDY: Chest Radiographs; 07/01/2024 at 8:35 PM. INDICATION: Fever and cough.. COMPARISON: XR chest 10/23/2020. ACCESSION NUMBER(S): [id number] ORDERING CLINICIAN: SIXTO MYERS TECHNIQUE: Frontal and lateral chest. FINDINGS: CARDIOMEDIASTINAL SILHOUETTE: Cardiomediastinal silhouette is normal in size and configuration. LUNGS: Lungs are clear. ABDOMEN: No remarkable upper abdominal findings. BONES: No acute osseous changes. IMPRESSION: No focal pulmonary pathology. Signed by Leo Paris M.D. Normal [facility] XR Chest 2 Viewson No focal pulmonary pathology. Signed by Leo Paris M.D. TELERADIOLOGY STUDY: Chest Radiographs; 07/01/2024 at 8:35 PM. INDICATION: Fever and cough.. COMPARISON: XR chest 10/23/2020. ACCESSION NUMBER(S): [id number] ORDERING CLINICIAN: SIXTO MYERS TECHNIQUE: Frontal and lateral chest. FINDINGS: CARDIOMEDIASTINAL SILHOUETTE: Cardiomediastinal silhouette is normal in size and configuration. LUNGS: Lungs are clear. ABDOMEN: No remarkable upper abdominal findings. BONES: No acute osseous changes. TELERADIOLOGY Leo Paris MD - 07/01/2024 STUDY: Chest Radiographs; 07/01/2024 at 8:35 PM. INDICATION: Fever and cough.. COMPARISON: XR chest 10/23/2020. ACCESSION NUMBER(S): [id number] ORDERING CLINICIAN: SIXTO MYERS TECHNIQUE: Frontal and lateral chest. FINDINGS: CARDIOMEDIASTINAL SILHOUETTE: Cardiomediastinal silhouette is normal in size and configuration. LUNGS: Lungs are clear. ABDOMEN: No remarkable upper abdominal findings. BONES: No acute osseous changes. IMPRESSION: No focal pulmonary pathology. Signed by Leo Paris M.D. [facility] Work Phone: Radiology Study observation (narrative) [facility] Work Phone: XR Chest 2 ViewsOrdered By: Leo Paris on 07-01-2024 [facility] Work Phone: CNPNon 06-28-2024 CNPN Normal [facility] CNPNon 06-25-2024 CNPN Normal [facility] CNPNon 06-22-2024 CNPN Normal [facility] CNPNon 06-19-2024 CNPN Normal [facility] nuchal translucency me asured by USon 06-15-2024 Indication First trimester anatomic survey Maternal obesity, BMI >30, Diabetes mellitus Impression The patient is referred for a first trimester anatomy scan including nuchal translucency measurement as clinically indicated. - Single, live, intrauterine . - Diomede rump length measurement is consistent with the [...] view: suboptimal 4-chamber view with color: suboptimal 9-xlgfyz-trwhvqp view: suboptimal Abdominal cord insertion: normal Stomach: [...] ovary Vol 8.0 cm Performed By: Idania Snyder, JANELL, RVT Read By: Pooja Latham M.D. MATERNAL MEDICINE [facility] Radiology Study observation (narrative) [facility] [id number] PLUSon 06-15-2024 Cell-free DNA./Cell-free DNA.total Dosage of chromosome-specific cfDNA (cfDNA) [Molar fraction] 15% Normal [facility] Comment on above: Order Comment: Speci men Type: BLOOD SPECIMENOrdering Facility: [facility] Address: [address] [place] [address] Performed By: #### M AT21 ####[facility] LABCLIA [id number] [place] [address] Chr 13+18+21+X+Y aneuploidy Dosage of chromosome-specific cfDNA Ql (cfDNA) Negative Normal [facility] Comment on above: Order Comment: Speci men Type: BLOOD SPECIMENOrdering Facility: [facility] Address: [address] [place] [address] Performed By: #### M AT21 ####[facility] LABCLIA [id number] [place] [address] Chr 21 trisomy Dosage of chromosome-specific cfDNA Ql (cfDNA) Negative Normal [facility] Comment on above: Order Comment: Speci men Type: BLOOD SPECIMENOrdering Facility: [facility] Address: [address] [place] [address] Performed By: #### M AT21 ####[facility] LABCLIA [id number] [place] [address] Chr X and Y aneuploidy risk Sequencing Ql (cfDNA) [Interp] Not detected Normal [facility] Comment on above: Order Comment: Speci men Type: BLOOD SPECIMENOrdering Facility: [facility] Address: [address] [place] [address] Result Comment: Not DetectedNot Detected Performed By: #### M AT21 ####[facility] LABCLIA [id number] [place] [address] Citation Jorge (Reference lab test) Comment Normal [facility] Comment on above: Order Comment: Speci men Type: BLOOD SPECIMENOrdering Facility: [facility] Address: [address] [place] [address] Result Comment: 1. P gabriela ROBINS, et al. Jaqueline Med. 2012;14(3):296-305.2. Shellie LIAO et al. Prenat Diag. 2013;33(6):591-597.3. Paul C, et al. Clin Chem. 2015 Apr;61(4):608-616.4. Shira ROBINS, et al. Jaqueline Med. 2011;13(11):913-920.5. ACOG/SMFM Practice Bulletin No. 226, Mar 2020. Performed By: #### M AT21 ####[facility] LABCLIA [id number] [place] [address] Gestational age Estimated from conception date [place] Normal [facility] Comment on above: Order Comment: Speci men Type: BLOOD SPECIMENOrdering Facility: [facility] Address: [address] [place] [address] Performed By: #### M AT21 ####[facility] LABCLIA [id number] [place] [address] GESTATIONALAGE AGE > OR = 9W Yes Normal [facility] Comment on above: Order Comment: Speci men Type: BLOOD SPECIMENOrdering Facility: [facility] Address: [address] [place] [address] Performed By: #### M AT21 ####[facility] LABCLIA [id number] [place] [address] Laboratory comment Jorge (Report) Comment Normal [facility] Comment on above: Order Comment: Speci men Type: BLOOD SPECIMENOrdering Facility: [facility] Address: [address] [place] [address] Result Comment: The MaterniT(R) 21 PLUS laboratory-developed test (LDT)analyzes circulating cell-free DNA from a maternal bloodsample. This test is used for screening purposes and notdiagnostic. Clinical correlation is recommended. Validationdata on twin pregnancies is limited and the ability of thistest to detect aneuploidy in higher multiple gestations hasnot yet been validated. Performed By: #### M AT21 ####[facility] LABCLIA [id number] [place] [id number] housing and residence life director name Nom (Provider) Comment Normal [facility] Comment on above: Order Comment: Speci men Type: BLOOD SPECIMENOrdering Facility: [facility] Address: [address] [place] [address] Result Comment: This specimen showed an expected representation ofchromosome 21, 18 and 13 material. Clinical correlation issuggested.CommentValdemar Kearns MD, PhD, Director, Petroleum Services Managment Performed By: #### M AT21 ####[employer] [facility] LABCLIA [id number] [place] [address] LIMITATIONS OF THE TEST Comment Normal [facility] Comment on above: Order Comment: Speci men Type: BLOOD SPECIMENOrdering Facility: [facility] Address: [address] [place] [address] Result Comment: Lynne grijalva the results of [...] and Fragmin(R)). Performed By: #### M AT21 ####[facility] LABCLIA [id number] [place] [address] Monosomy X risk Dosage of chromosome-specific cfDNA Ql (Plasma cell-free+WBC DNA) [Interp] Not detected Normal [facility] Comment on above: Order Comment: Speci men Type: BLOOD SPECIMENOrdering Facility: [facility] Address: [facility] [place] [address] Performed By: #### M AT21 ####[facility] LABCLIA [id number] [place] [address] NEGATIVE PREDICTIVE VALUE Note Normal [facility] Comment on above: Order Comment: Speci men Type: BLOOD SPECIMENOrdering Facility: [facility] Address: [address] [place] [address] Result Comment: The Negative Predictive Value (NPV) for trisomy 21, 18, and13 is greater than 99%. The NPV for SCA and ESS cannot becalculated as SCA and ESS are only reported when anabnormality is detected. Performed By: #### M AT21 ####[facility] LABCLIA [id number] [place] [address] NOTE Comment Normal [facility] Comment on above: Order Comment: Speci men Type: BLOOD SPECIMENOrdering Facility: [facility] Address: [address] [place] [address] Result Comment: See [employer] is a subsidiary of [employer], using the brand [employer]. This test wasdeveloped and its performance characteristics determined byMobilio. It has not been cleared or approved by the Foodand Drug Administration. This laboratory is certified underthe Clinical Laboratory Improvement Amendments (CLIA) asqualified to perform high complexity clinical laboratorytesting and accredited by the College of AmericanPathologists (CAP).If there is future clinical need for adding MaterniT GENOMEtesting, this specimen will be available until term.[facility] samples will not be retained beyond 60 days.[facility] patients will have to send a new sample forre-sequencing ([facility] Test Code: 989475). Performed By: #### M AT21 ####[facility] LABCLIA [id number] [place] [address] PERFORMANCE CHARACTERISTICS Note Normal [facility] Comment on above: Order Comment: Speci men Type: BLOOD SPECIMENOrdering Facility: [facility] Address: [address] [place] [id number] Result Comment: ! Sex ! Accuracy: 99.4% !! !! Region (associated syndrome) ! Est. Sens# ! Est. Spec !! !! Trisomy 21 (Down Syndrome) ! 99.1% ! 99.9% !! !! Trisomy 18 (Pham Syndrome) ! >99.9% ! 99.6% !! !! Trisomy 13 (Patau Syndrome) ! 91.7% ! 99.7% !! !! Sex Chromosome Aneuploidies## ! 96.2% ! 99.7% !! !* As reported in [facility] database nstd37[https://www.ncbi.nlm.nih.gov/dbvar/studies/nstd37/ ]# Estimated Sensitivity. Sensitivity estimated across theobserved size distribution of each syndrome [per [facility]base nstd37] and across the range of fractionsobserved in routine clinical NIPT. Actual sensitivity canalso be influenced by other factors such as the size of theevent, total sequence counts, amplification bias, orsequence bias.## [place] gestation only. Performed By: #### M AT21 ####[facility] LABCLIA [id number] [place] [address] POSITIVE PREDICTIVE VALUE N/A Normal [facility] Comment on above: Order Comment: Speci men Type: BLOOD SPECIMENOrdering Facility: [facility] Address: [address] [place] [address] Performed By: #### M AT21 ####[facility] LABCLIA [id number] [place] [address] Reference Lab Test Method Comment Normal [facility] Comment on above: Order Comment: Speci men Type: BLOOD SPECIMENOrdering Facility: [facility] Address: [address] [place] [address] Result Comment: See NotesCirculating cell-free DNA was [...] 8q, 5p, 4p, 1p) and trisomy of veskrcwmlrq62 and 22. Performed By: #### M AT21 ####[facility] LABCLIA [id number] [place] [address] Sex Dosage of chromosome-specific cfDNA Nom (cfDNA) Comment Normal [facility] Comment on above: Order Comment: Speci men Type: BLOOD SPECIMENOrdering Facility: [facility] Address: [address] [place] [address] Result Comment: Cons istent with Female Performed By: #### M AT21 ####[facility] LABCLIA [id number] [place] [address] Test performance information Jorge (Unsp spec) Comment Normal [facility] Comment on above: Order Comment: Gume escobedo Type: BLOOD SPECIMENOrdering Facility: [facility] Address: [address] [place] [address] Result Comment: The performance characteristics of the MaterniT(R) 21 PLUSlaboratory-developed test (LDT) have been determined in aclinical validation study with women at increasedrisk for chromosomal aneuploidy.[1-4] Performed By: #### M AT21 ####[facility] LABCLIA [id number] [place] [address] Trisomy 13 risk Dosage of chromosome-specific cfDNA Ql (cfDNA) [Interp] Negative Normal [facility] Comment on above: Order Comment: Gume escobedo Type: BLOOD SPECIMENOrdering Facility: [facility] Address: [address] [place] [address] Performed By: #### M AT21 ####[facility] LABCLIA [id number] [place] [address] Trisomy 18 risk Dosage of chromosome-specific cfDNA Ql (Plasma cell-free+WBC DNA) [Interp] Negative Normal [facility] Comment on above: Order Comment: Gume escobedo Type: BLOOD SPECIMENOrdering Facility: [facility] Address: [address] [place] [address] Performed By: #### M AT21 ####[facility] LABCLIA [id number] [place] [address] CNPNon 06-11-2024 CNPN Normal [facility] CNOVon 06-07-2024 CNOV Normal [facility] HEMOGLOBIN A1C (POC)on 06-07 HbA1c (Bld) [Mass fraction] 7.9 % Abnormal 4.3 - 5.6 % [facility] Comment on above: Location:Count includes the [facility], [address] [place] [address], [facility] Point of care (POC) Hemoglobin A1c [...] specific diabetes management situations: The POC device second shift supervisor provides a normal range of 4.2% to 6.5% for the HGBA1C POC test. However, the [place] Diabetes [employer] guidelines indicate that patients with [...] Interpretation and review of laboratory results Abnormal [facility] 06-05-2024 CNPN Normal [facility] URINE OB DIP B/Oon Glucose Ql (U) Negative Neg mg/dL [facility] Interpretation and review of laboratory results Normal [facility] Protein.monoclonal (U) [Mass/Vol] Negative Neg mg/dL [facility] CBC W Auto Differential pane l (Bld)on 05-21-2024 Basophils (Bld) [#/Vol] 0.05 10*3/uL [facility] Basophils/100 WBC (Bld) 0.6 % 0.0 - 2.0 % [facility] Eosinophils (Bld) [#/Vol] 0.18 10*3/uL [facility] Eosinophils/100 WBC (Bld) 2.3 % 0.0 - 6.0 % [facility] Erythrocyte distribution width (RBC) [Ratio] 12.1 % 11.5 - 14.5 % [facility] Hematocrit (Bld) [Volume fraction] 41.7 % 36.0 - 46.0 % [facility] Hemoglobin (Bld) [Mass/Vol] 14.3 g/dL 12.0 - 16.0 g/dL [facility] Immature granulocytes (Bld) [#/Vol] 0.01 10*3/uL [facility] Immature granulocytes/100 WBC (Bld) 0.1 % 0.0 - 0.9 % [facility] Comment on above: Immature Granulocyte Count (IG) includes promyelocytes, myelocytes and metamyelocytes but does not include bands. Percent differential counts (%) should be interpreted in the context of the absolute cell counts (cells/UL). Lymphocytes (Bld) [#/Vol] 3.2 10*3/uL [facility] Lymphocytes/100 WBC (Bld) 41.3 % 13.0 - 44.0 % [facility] MCH (RBC) [Entitic mass] 28.9 pg 26.0 - 34.0 pg [facility] MCHC (RBC) [Mass/Vol] 34.3 g/dL 32.0 - 36.0 g/dL [facility] MCV (RBC) [Entitic vol] 84 fL 80 - 100 fL [facility] Monocytes (Bld) [#/Vol] 0.49 10*3/uL [facility] Monocytes/100 WBC (Bld) 6.3 % 2.0 - 10.0 % [facility] Neutrophils (Bld) [#/Vol] 3.81 10*3/uL [facility] Comment on above: Percent differential counts (%) should be interpreted in the context of the absolute cell counts (cells/uL). Neutrophils/100 WBC (Bld) 49.4 % 40.0 - 80.0 % [facility] Nucleated RBC/100 WBC (Bld) [Ratio] 0 % [facility] Platelets (Bld) [#/Vol] 299 10*3/uL [facility] RBC (Bld) [#/Vol] 4.94 10*6/uL [facility] WBC (Bld) [#/Vol] 7.7 10*3/uL [facility] Basophils (Bld) [#/Vol] 0.05 x10*3/uL Normal 0.00-0.10 [facility] [place] Comment on above: Performed By: #### 5 7021-8 #### JACQUELYN LOPEZ ([id number]) [facility] ([facility]) [address] [place] [address] 94504 Basophils/100 WBC (Bld) 0.6 % Normal 0.0-2.0 [facility] [place] Comment on above: Performed By: #### 5 7021-8 #### JACQUELYN LOPEZ ([id number]) [facility] ([facility]) [address] [place] [address] 42454 Eosinophils (Bld) [#/Vol] 0.18 x10*3/uL Normal 0.00-0.70 [facility] [place] Comment on above: Performed By: #### 5 7021-8 #### JACQUELYN LOPEZ ([id number]) [facility] ([facility]) [address] [place] [address] 51485 Eosinophils/100 WBC (Bld) 2.3 % Normal 0.0-6.0 [facility] [place] Comment on above: Performed By: #### 5 7021-8 #### JACQUELYN LOPEZ ([id number]) [facility] ([facility]) [address] [place] [address] 03905 Erythrocyte distribution width (RBC) [Ratio] 12.1 % Normal 11.5-14.5 [facility] [place] Comment on above: Performed By: #### 5 7021-8 #### JACQUELYN LOPEZ ([id number]) [facility] ([facility]) [address] [place] [address] 37689 Hematocrit (Bld) [Volume fraction] 41.7 % Normal 36.0-46.0 [facility] [place] Comment on above: Performed By: #### 5 7021-8 #### JACQUELYN LOPEZ ([id number]) [facility] ([facility]) [address] [place] [address] 04938 Hemoglobin (Bld) [Mass/Vol] 14.3 g/dL Normal 12.0-16.0 [facility] [place] Comment on above: Performed By: #### 5 7021-8 #### JACQUELYN LOPEZ ([id number]) [facility] ([facility]) [address] [place] [address] 50662 Immature granulocytes (Bld) [#/Vol] 0.01 x10*3/uL Normal 0.00-0.70 [facility] [place] Comment on above: Performed By: #### 5 7021-8 #### JACQUELYN LOPEZ ([id number]) [facility] ([facility]) [address] [place] [address] 70519 Immature granulocytes/100 WBC (Bld) 0.1 % Normal 0.0-0.9 [facility] [place] Comment on above: Result Comment: Kaela ture Granulocyte Count (IG) includes promyelocytes, myelocytes and metamyelocytes but does not include bands. Percent differential counts (%) should be interpreted in the context of the absolute cell counts (cells/UL). Performed By: #### 5 7021-8 #### JACQUELYN LOPEZ ([id number]) [facility] ([facility]) [address] [place] [address] Lymphocytes (Bld) [#/Vol] 3.20 x10*3/uL Normal 1.20-4.80 [facility] [place] Comment on above: Performed By: #### 5 7021-8 #### JACQUELYN LOPEZ ([id number]) [facility] ([facility]) [address] [place] [address] 12816 Lymphocytes/100 WBC (Bld) 41.3 % Normal 13.0-44.0 [facility] [place] Comment on above: Performed By: #### 5 7021-8 #### JACQUELYN LOPEZ ([id number]) [facility] ([facility]) [address] [place] [address] 92857 MCH (RBC) [Entitic mass] 28.9 pg Normal 26.0-34.0 [facility] [place] Comment on above: Performed By: #### 5 7021-8 #### JACQUELYN LOPEZ ([id number]) [facility] ([facility]) [address] [place] [address] 76785 MCHC (RBC) [Mass/Vol] 34.3 g/dL Normal 32.0-36.0 [facility] Comment on above: Performed By: #### 5 7021-8 #### JACQUELYN LOPEZ ([id number]) [facility] ([facility]) [address] [place] [address] MCV (RBC) [Entitic vol] 84 fL Normal 80-100 [facility] [place] Comment on above: Performed By: #### 5 7021-8 #### JACQUELYN LOPEZ ([id number]) [facility] ([facility]) [address] [place] [address] 41532 Monocytes (Bld) [#/Vol] 0.49 x10*3/uL Normal 0.10-1.00 [facility] [place] Comment on above: Performed By: #### 5 7021-8 #### JACQUELYN LOPEZ ([id number]) [facility] ([facility]) [address] [place] [address] 22445 Monocytes/100 WBC (Bld) 6.3 % Normal 2.0-10.0 [facility] [place] Comment on above: Performed By: #### 5 7021-8 #### JACQUELYN LOPEZ ([id number]) [facility] ([facility]) [address] [place] [address] 61783 Neutrophils (Bld) [#/Vol] 3.81 x10*3/uL Normal 1.20-7.70 [facility] [place] Comment on above: Result Comment: Perc ent differential counts (%) should be interpreted in the context of the absolute cell counts (cells/uL). Performed By: #### 5 7021-8 #### JACQUELYN LOPEZ ([id number]) [facility] ([facility]) [address] [place] [address] 66466 Neutrophils/100 WBC (Bld) 49.4 % Normal 40.0-80.0 [facility] [place] Comment on above: Performed By: #### 5 7021-8 #### JACQUELYN LOPEZ ([id number]) [facility] ([facility]) [address] [place] [address] 70934 Nucleated RBC/100 WBC (Bld) [Ratio] 0.0 /100 WBCs Normal 0.0-0.0 [facility] [place] Comment on above: Performed By: #### 5 7021-8 #### JACQUELYN LOPEZ ([id number]) [facility] ([facility]) [address] [place] [address] 31096 Platelets (Bld) [#/Vol] 299 x10*3/uL Normal 150-450 [facility] [place] Comment on above: Performed By: #### 5 7021-8 #### JACQUELYN LOPEZ ([id number]) [facility] ([facility]) [address] [place] [address] 97401 RBC (Bld) [#/Vol] 4.94 x10*6/uL Normal 4.00-5.20 [facility] Comment on above: Performed By: #### 5 7021-8 #### JACQUELYN LOPEZ ([id number]) [facility] ([facility]) [address] [place] [address] 20231 WBC (Bld) [#/Vol] 7.7 x10*3/uL Normal 4.4-11.3 [facility] Comment on above: Performed By: #### 5 7021-8 #### JACQUELYN LOPEZ ([id number]) [facility] ([facility]) [address] [place] [address] Choriogonadotropin.beta subu niton 05-21-2024 [place] [address] m[IU]/mL High <5 U [facility] Comment on above: Order Comment: OVER [...] By: #### 5 8077-9 #### JACQUELYN LOPEZ ([id number]) [facility] ([facility]) [address] [place], [place] [id number] Comprehensive metabolic 2000 panelon 05-21-2024 Albumin BCP dye [Mass/Vol] 4.2 g/dL 3.4 - 5.0 g/dL [facility] ALP [Catalytic activity/Vol] 49 U/L 33 - 110 U/L [facility] ALT With P-5'-P [Catalytic activity/Vol] 20 U/L 7 - 45 U/L [facility] Comment on above: Patients treated wit h Sulfasalazine may generate falsely decreased results for ALT. Anion gap [Moles/Vol] 13 mmol/L 10 - 2 0 mmol/L [facility] AST With P-5'-P [Catalytic activity/Vol] 10 U/L 9 - 39 U/L [facility] Bilirubin [Mass/Vol] 0.5 mg/dL 0.0 - 1 .2 mg/dL [facility] Calcium [Mass/Vol] 9.8 mg/dL 8.6 - 10. 3 mg/dL [facility] Chloride [Moles/Vol] 103 mmol/L 98 - 10 7 mmol/L [facility] CO2 [Moles/Vol] 25 mmol/L 21 - 32 mmol/L [facility] Creatinine [Mass/Vol] 0.53 mg/dL 0.50 - 1.05 mg/dL [facility] eGFR - PINF [facility] Comment on above: Calculations of ascencion mated GFR are performed using the 2020 CKD-EPI Study Refit equation without the race variable for the IDMS-Traceable creatinine methods. https://jasn.asnjournals.org/content//ASN.726313 4580 Glucose [Mass/Vol] 150 mg/dL High 74 - 99 mg/dL [facility] Interpretation and review of laboratory results Abnormal [facility] Potassium [Moles/Vol] 3.7 mmol/L 3.5 - 5.3 mmol/L [facility] Protein [Mass/Vol] 7.4 g/dL 6.4 - 8.2 g/dL [facility] Sodium [Moles/Vol] 137 mmol/L 136 - 145 mmol/L [facility] Urea nitrogen [Mass/Vol] 14 mg/dL 6 - 23 mg/dL [facility] Albumin BCP dye [Mass/Vol] 4.2 g/dL Normal 3.4-5.0 [facility] [place] Comment on above: Performed By: #### 2 4323-8 #### VALLADARES JOHN ([id number]) [facility] ([facility]) [address] [place] [address] ALP [Catalytic activity/Vol] 49 U/L Normal 33-110 [facility] [place] Comment on above: Performed By: #### 2 4323-8 #### JACQUELYN LOPEZ ([id number]) [facility] ([facility]) [address] [place] [address] ALT With P-5'-P [Catalytic activity/Vol] 20 U/L Normal 7-45 [facility] [place] Comment on above: Result Comment: Shantal ents treated with Sulfasalazine may generate falsely decreased results for ALT. Performed By: #### 2 432-8 #### JACQUELYN LOPEZ ([id number]) [facility] ([facility]) [address] [place] [address] Anion gap [Moles/Vol] 13 mmol/L Normal 10-20 [facility] Comment on above: Performed By: #### 2 4322-8 #### JACQUELYN LOPEZ ([id number]) [facility] ([facility]) [address] [place] [address] AST With P-5'-P [Catalytic activity/Vol] 10 U/L Normal 9-39 [facility] [place] Comment on above: Performed By: #### 2 432-8 #### JACQUELYN LOPEZ ([id number]) [facility] ([facility]) [address] [place] [address] Bilirubin [Mass/Vol] 0.5 mg/dL Normal 0.0-1.2 [facility] Comment on above: Performed By: #### 2 4323-8 #### JACQUELYN LOPEZ ([id number]) [facility] ([facility]) [address] [place] [address] Calcium [Mass/Vol] 9.8 mg/dL Normal 8.6-10.3 [facility] Comment on above: Performed By: #### 2 4323-8 #### JACQUELYN LOPEZ ([id number]) [facility] ([facility]) [address] [place] [address] Chloride [Moles/Vol] 103 mmol/L Normal 98-107 [facility] Comment on above: Performed By: #### 2 4323-8 #### JACQUELYN LOPEZ ([id number]) [facility] ([facility]) [address] [place] [address] 60082 CO2 [Moles/Vol] 25 mmol/L Normal 21-32 [facility] Comment on above: Performed By: #### 2 4323-8 #### JACQUELYN LOPEZ ([id number]) [facility] ([facility]) [address] [place] [address] 37951 Creatinine [Mass/Vol] 0.53 mg/dL Normal 0.50-1.05 [facility] Comment on above: Performed By: #### 2 4323-8 #### JACQUELYN LOPEZ ([id number]) [facility] ([facility]) [address] [place] [address] 81452 GFR/1.73 sq M.predicted MDRD (S/P/Bld) [Vol rate/Area] mL/min/{1.73_m2} Normal >60 [facility] [place] Comment on above: Result Comment: Calc ulations of estimated GFR are performed using the 2020 CKD-EPI Study Refit equation without the race variable for the IDMS-Traceable creatinine methods. https://jasn.asnjournals.org/content/early/ASN.468045 3671 Performed By: #### 2 4323-8 #### JACQUELYN LOPEZ ([id number]) [facility] ([facility]) [address] [place] [address] 59384 Glucose [Mass/Vol] 150 mg/dL High 74-99 [facility] Comment on above: Performed By: #### 2 4323-8 #### JACQUELYN LOPEZ ([id number]) [facility] ([facility]) [address] [place] [address] 04396 Potassium [Moles/Vol] 3.7 mmol/L Normal 3.5-5.3 [facility] Comment on above: Performed By: #### 2 4323-8 #### JACQUELYN LOPEZ ([id number]) [facility] ([facility]) [address] [place] [address] 16541 Protein [Mass/Vol] 7.4 g/dL Normal 6.4-8.2 [facility] Comment on above: Performed By: #### 2 4323-8 #### JACQUELYN LOPEZ ([id number]) [facility] ([facility]) [address] [place] [address] 01352 Sodium [Moles/Vol] 137 mmol/L Normal 136-145 [facility] Comment on above: Performed By: #### 2 4323-8 #### JACQUELYN LOPEZ ([id number]) [facility] ([facility]) [address] [place], [place] [address] Urea nitrogen [Mass/Vol] 14 mg/dL Normal 6-23 [facility] [place] Comment on above: Performed By: #### 2 4323-8 #### JACQUELYN LOPEZ ([id number]) [facility] ([facility]) [address] [place] [address] HCG.beta subunit Qnon 2023 Interpretation and review of laboratory results Abnormal [facility] Total HCG measuremen t is performed using the [employer] Access Immunoassay which detects intact HCG and free beta HCG subunit. This test is not indicated for use as a tumor marker. HCG testing is performed using a different test methodology at [facility] than other legacy [facility]. Direct result comparison should only be made within the same method. [facility] Urinalysis complete W Reflex Culture panel (U)on 05-21-2024 Appearance (U) Turbid Abnormal Clear [facility] Bacteria Auto (Urine sed) [#/Area] 2+ Abnormal NONE SEEN /HPF [facility] Bilirubin (U) [Mass/Vol] Negative NEGATIVE [facility] Color (U) Light-Yellow Light-Yellow , Yellow, Dark-Yellow [facility] Epithelial cells.squamous Auto (Urine sed) [#/Area] 10-25 (FEW) Reference range not established. /HPF [facility] Glucose Auto test strip (U) [Mass/Vol] OVER (4+) Abnormal Normal mg/dL [facility] Interpretation and review of laboratory results Abnormal [facility] Ketones (U) [Mass/Vol] Negative NEGATIVE mg/dL [facility] Leukocyte clumps Auto (Urine sed) [#/Area] RARE Reference range not established. /HPF [facility] Leukocyte esterase Auto test strip Ql (U) Negative NEGATIVE [facility] Mucus Auto (Urine sed) [#/Area] FEW Reference range not established. /LPF [facility] Nitrite Auto test strip Ql (U) Negative NEGATIVE [facility] pH (U) 6 [pH] 5.0, 5.5, 6.0, 6.5, 7.0, 7.5, 8.0 [facility] Protein (U) [Mass/Vol] 10 (TRACE) NEGATIVE, 10 (TRACE), 20 (TRACE) mg/dL [facility] RBC (U) [#/Vol] Negative NEGATIVE [facility] RBC Auto (Urine sed) [#/Area] 1-2 NONE, 1-2, 3-5 /HPF [facility] Specific gravity (U) [Rel density] 1.029 1.005 - 1.035 [facility] Urobilinogen (U) [Mass/Vol] 4 (2+) Abnormal Normal mg/dL [facility] Comment on above: Some pigments and me dications may cause a false positive urobilinogen. WBC Auto (Urine sed) [#/Area] 1-5 1-5, NONE /HPF [facility] OVER is reported whe n the result is greater than the clinically reportable range. [facility] Appearance (U) Turbid Normal Clear [facility] Comment on above: Order Comment: OVER is reported when the result is greater than the clinically reportable range. Performed By: #### 5 8077-9 #### JACQUELYN LOPEZ ([id number]) [facility] ([facility]) [address] [place] [address] 49579 Bacteria Auto (Urine sed) [#/Area] 2+ /HPF Abnormal NONE SEEN [facility] Comment on above: Performed By: #### 5 8077-9 #### JACQUELYN LOPEZ ([id number]) [facility] ([place] [address] Bilirubin (U) [Mass/Vol] Negative Normal NEGATIVE [facility] Comment on above: Order Comment: OVER is reported when the result is greater than the clinically reportable range. Performed By: #### 5 8077-9 #### JACQUELYN LOPEZ ([id number]) [facility] ([facility]) [address] [place] [address] Color (U) Light-Yellow Normal Light-Yellow , Yellow, Dark-Yellow [facility] [place] Comment on above: Order Comment: OVER is reported when the result is greater than the clinically reportable range. Performed By: #### 5 8077-9 #### JACQUELYN LOPEZ ([id number]) [facility] ([place] [address] Epithelial cells.squamous Auto (Urine sed) [#/Area] 10-25 (FEW) Normal Reference range not established. [facility] [place] Comment on above: Performed By: #### 5 8077-9 #### JACQUELYN LOPEZ ([id number]) [facility] ([facility]) [address] [place] [address] Glucose Auto test strip (U) [Mass/Vol] OVER (4+) Abnormal Normal [facility] [place] Comment on above: Order Comment: OVER is reported when the result is greater than the clinically reportable range. Performed By: #### 5 8077-9 #### JACQUELYN LOPEZ ([id number]) [facility] ([facility]) [address] [place] [address] Ketones (U) [Mass/Vol] Negative Normal NEGATIVE [facility] [place] Comment on above: Order Comment: OVER is reported when the result is greater than the clinically reportable range. Performed By: #### 5 8077-9 #### JACQUELYN LOPEZ ([id number]) [facility] ([facility]) [address] [place] [address] Leukocyte clumps Auto (Urine sed) [#/Area] RARE Normal Reference range not established. [facility] [place] Comment on above: Performed By: #### 5 8077-9 #### JACQUELYN LOPEZ ([id number]) [facility] ([facility]) [address] [place] [address] 02512 Leukocyte esterase Auto test strip Ql (U) Negative Normal NEGATIVE [facility] [place] Comment on above: Order Comment: OVER is reported when the result is greater than the clinically reportable range. Performed By: #### 5 8077-9 #### JACQUELYN LOPEZ ([id number]) [facility] ([facility]) [address] [place] [address] 05122 Mucus Auto (Urine sed) [#/Area] FEW Normal Reference range not established. [facility] [place] Comment on above: Performed By: #### 5 8077-9 #### JACQUELYN LOPEZ ([id number]) [facility] ([facility]) [address] [place] [address] 82165 Nitrite Auto test strip Ql (U) Negative Normal NEGATIVE [facility] [place] Comment on above: Order Comment: OVER is reported when the result is greater than the clinically reportable range. Performed By: #### 5 8077-9 #### JACUQELYN LOPEZ ([id number]) [facility] ([facility]) [address] [place], [place] [address] pH (U) 6.0 [pH] Normal 5.0, 5.5, 6.0, 6.5, 7.0, 7.5, 8.0 [facility] [place] Comment on above: Order Comment: OVER is reported when the result is greater than the clinically reportable range. Performed By: #### 5 8077-9 #### JACQUELYN LOPEZ ([id number]) [facility] ([facility]) [address] [place] [address] 90899 Protein (U) [Mass/Vol] 10 (TRACE) Normal NEGATIVE, 10 (TRACE), 20 (TRACE) [facility] Comment on above: Order Comment: OVER is reported when the result is greater than the clinically reportable range. Performed By: #### 5 8077-9 #### JACQUELYN LOPEZ ([id number]) [facility] ([facility]) [address] [place] [address] 94382 RBC (U) [#/Vol] Negative Normal NEGATIVE [facility] Comment on above: Order Comment: OVER is reported when the result is greater than the clinically reportable range. Performed By: #### 5 8077-9 #### JACQUELYN LOPEZ ([id number]) [facility] ([facility]) [address] [place] [address] RBC Auto (Urine sed) [#/Area] 1-2 Normal NONE, 1-2, 3-5 [facility] Comment on above: Performed By: #### 5 8077-9 #### JACQUELYN LOPEZ ([id number]) [facility] ([facility]) [address] [place] [address] Specific gravity (U) [Rel density] 1.029 Normal 1.005-1.035 [facility] Comment on above: Order Comment: OVER is reported when the result is greater than the clinically reportable range. Performed By: #### 5 8077-9 #### JACQUELYN LOPEZ ([id number]) [facility] ([facility]) [address] [place], [place] [address] Urobilinogen (U) [Mass/Vol] 4 (2+) Abnormal Normal [facility] Comment on above: Order Comment: OVER is reported when the result is greater than the clinically reportable range. Result Comment: Some pigments and medications may cause a false positive urobilinogen. Performed By: #### 5 8077-9 #### JACQUELYN LOPEZ ([id number]) [facility] ([facility]) [address] [place] [address] 40599 WBC Auto (Urine sed) [#/Area] 1-5 Normal 1-5, NONE [facility] Comment on above: Performed By: #### 5 8077-9 #### JACQUELYN LOPEZ ([id number]) [facility] ([facility]) [address] [place] [address] 49180 hCG, quantitative, on 05-21-2024 [place] [address] m[IU]/mL High NINF [facility] Comment on above: Low-level positive H [...] the HCG elevation. CNPNon 05-20-2024 CNPN Normal [facility] CNPNon 05-17-2024 CNPN Normal [facility] CNPNon 05-10-2024 CNPN Normal [facility] CNPNon 05-09-2024 CNPN Normal [facility] BACTERIAL VAGINOSIS NAATon 1 07-07-2023 Lactobacillus crispatus+gasseri+dez senii + Gardnerella vaginalis + Atopobium vaginae rRNA SUMIT+probe Ql (Vag fld) Detected Abnormal Not detected [facility] Comment on above: Order Comment: Speci men Type: SWABOrdering Facility: [facility] Address: [address] [place] [address] Performed By: #### 3 6902-5, BVAMP ####[facility] LABCLIA [id number] [place] [address] [place] Bacteria Ur Culton Bacteria identified Cx Nom (U) ORGANISM ID: 1 10,000 -<50,000 CFU/ml Normal urogenital hima Streptococcus agalactiae (Group B streptococcus) was identified in this specimen, which is clinically relevant if the individual is . Normal [facility] Comment on above: Performed By: #### 6 30-4 ####[facility] LABCLIA [id number] [place] [address] [place] C. trachomatis+N. gonorrhoea e DNA SUMIT+probe Ql (Unsp spec)on 05-07-2024 C. trachomatis rRNA SUMIT+probe Ql (Unsp spec) Not detected Normal Not detected [facility] Comment on above: Order Comment: Speci men Type: SWABOrdering Facility: [facility] Address: [address] [place] [address] Performed By: #### 3 6902-5, BVAMP ####[facility] LABCLIA [id number] [place] [address] [place] N. gonorrhoeae rRNA SUMIT+probe Ql (Unsp spec) Not detected Normal Not detected [facility] Comment on above: Order Comment: Speci men Type: SWABOrdering Facility: [facility] Address: [address] [place] [address] Performed By: #### 3 6902-5, BVAMP ####[facility] LABCLIA [id number] [place] [address] [place] JOSUÉ/TRICHOMONAS NAATon 1 07-07-2023 C. glabrata RNA USMIT+probe Ql (Vag fld) Not detected Normal Not detected [facility] Comment on above: Order Comment: Speci men Type: SWABOrdering Facility: [facility] Address: [address] [place] [address] Performed By: #### C VTV ####[facility] LABCLIA [id number] [address] [place] Josué sp DNA SUMIT+probe Ql (Vag fld) Not detected Normal Not detected [facility] Comment on above: Order Comment: Speci men Type: SWABOrdering Facility: [facility] Address: [address] [place] [address] Result Comment: The Josué species group target includes C. albicans, C. tropicalis, C. parapsilosis, and C. dubliniensis. Performed By: #### C VTV ####[facility] LABCLIA [id number] [address] [place] T. vaginalis DNA SUMIT+probe Ql (Unsp spec) Not detected Normal Not detected [facility] Comment on above: Order Comment: Speci men Type: SWABOrdering Facility: [facility] Address: [address] [place] [address] Performed By: #### C VTV ####[facility] LABCLIA [id number] [place] [address] [place] CARRIER SCREEN, STANDARDon 07-07-2023 CARRIER SCREEN RESULTS View results in Scanned Documents link when available. Normal [facility] Comment on above: Order Comment: Speci men Type: BLOOD SPECIMENOrdering Facility: [facility] Address: [address] [place] [address] Performed By: #### C RRSCN ####MYRIADCLIA [id number] [place] [address] CBC W Auto Differential pane l (Bld)on 05-07-2024 Basophils (Bld) [#/Vol] 0.04 10*3/uL Normal <0.11 [facility] Comment on above: Order Comment: Speci men Type: BLOOD SPECIMENOrdering Facility: [facility] Address: [address] [place] [address] Performed By: #### 5 7021-8 ####[facility] [id number] [place] [address] [place] Basophils/100 WBC (Bld) 0.7 % Normal [facility] Comment on above: Order Comment: Speci men Type: BLOOD SPECIMENOrdering Facility: [facility] Address: [address] [place] [address] Performed By: #### 5 7021-8 ####[facility] [id number] [place] [address] [place] Differential cell count method Nom (Bld) Auto Normal [facility] Comment on above: Order Comment: Speci men Type: BLOOD SPECIMENOrdering Facility: [facility] Address: [address] [place] [address] Performed By: #### 5 7021-8 ####[facility] [id number] [place] [address] [place] Eosinophils (Bld) [#/Vol] 0.14 10*3/uL Normal <0.46 [facility] Comment on above: Order Comment: Speci men Type: BLOOD SPECIMENOrdering Facility: [facility] Address: [address] [place] [address] Performed By: #### 5 7021-8 ####[facility] MILLTOWNCLIA [id number] [place] [address] [place] Eosinophils/100 WBC (Bld) 2.3 % Normal [facility] Comment on above: Order Comment: Speci men Type: BLOOD SPECIMENOrdering Facility: [facility] Address: [address] [place] [address] Performed By: #### 5 7021-8 ####[facility] BEACHESWKLAUSLIA [id number] [place] [address] [place] Erythrocyte distribution width (RBC) [Ratio] 12.2 % Normal 11.5-15.0 [facility] Comment on above: Order Comment: Speci men Type: BLOOD SPECIMENOrdering Facility: [facility] Address: [address] [place] [address] Performed By: #### 5 7021-8 ####[facility]ALTH[facility] [id number] [place] [address] [place] Hematocrit (Bld) [Volume fraction] 42.1 % Normal 36.0-46.0 [facility] Comment on above: Order Comment: Speci men Type: BLOOD SPECIMENOrdering Facility: [facility] Address: [address] [place] [address] Performed By: #### 5 7021-8 ####[facility] MILLWNCLIA [id number] [place] [address] [place] Hemoglobin (Bld) [Mass/Vol] 14.8 g/dL Normal 11.5-15.5 [facility] Comment on above: Order Comment: Speci men Type: BLOOD SPECIMENOrdering Facility: [facility] Address: [address] [place] [address] Performed By: #### 5 7021-8 ####[facility] MILLWNCLIA [id number] [place] [address] [place] Immature granulocytes (Bld) [#/Vol] 10*3/uL Normal <0.10 [facility] Comment on above: Order Comment: Speci men Type: BLOOD SPECIMENOrdering Facility: [facility] Address: [address] [place] [address] Performed By: #### 5 7021-8 ####[facility] BEACHESWDELIA [id number] [place] [address] [place] Immature granulocytes/100 WBC (Bld) 0.2 % Normal [facility] Comment on above: Order Comment: Speci men Type: BLOOD SPECIMENOrdering Facility: [facility] Address: [address] [place] [address] Performed By: #### 5 7021-8 ####[facility]ITALNCLIA [id number] [place] [address] [place] Lymphocytes (Bld) [#/Vol] 2.83 10*3/uL Normal 1.00-4.00 [facility] Comment on above: Order Comment: Speci men Type: BLOOD SPECIMENOrdering Facility: [facility] Address: [address] [place] [address] Performed By: #### 5 7021-8 ####[facility]ALTHLIA [id number] [place] [address] [place] Lymphocytes/100 WBC (Bld) 46.6 % Normal [facility] Comment on above: Order Comment: Speci men Type: BLOOD SPECIMENOrdering Facility: [facility] Address: [address] [place] [address] Performed By: #### 5 7021-8 ####[facility] HOS[facility]ITALNCLIA [id number] [place] [address] [place] MCH (RBC) [Entitic mass] 28.7 pg Normal 26.0-34.0 [facility] Comment on above: Order Comment: Speci men Type: BLOOD SPECIMENOrdering Facility: [facility] Address: [address] [place] [address] Performed By: #### 5 7021-8 ####[facility] HAROLDO CARBAJAL [id number] [place] [address] [place] MCHC (RBC) [Mass/Vol] 35.2 g/dL Normal 30.5-36.0 [facility] Comment on above: Order Comment: Speci men Type: BLOOD SPECIMENOrdering Facility: [facility] Address: [address] [place] [address] Performed By: #### 5 7021-8 ####[facility] HOSPITALVERNON [id number] [place] [address] [place] MCV (RBC) [Entitic vol] 81.7 fL Normal 80.0-100.0 [facility] Comment on above: Order Comment: Speci men Type: BLOOD SPECIMENOrdering Facility: [facility] Address: [address] [place], [place] [address] Performed By: #### 5 7021-8 ####[facility] HOSPITALVERNON [id number] [place] [address] [place] Monocytes (Bld) [#/Vol] 0.37 10*3/uL Normal <0.87 [facility] Comment on above: Order Comment: Speci men Type: BLOOD SPECIMENOrdering Facility: [facility] Address: [address] [place] [address] Performed By: #### 5 7021-8 ####[facility] HOSPITALNCLIA [id number] [place] [address] [place] Monocytes/100 WBC (Bld) 6.1 % Normal [facility] Comment on above: Order Comment: Speci men Type: BLOOD SPECIMENOrdering Facility: [facility] Address: [address] [place] [address] Performed By: #### 5 7021-8 ####[facility] MILLWNCLIA [id number] [place] [address] [place] Neutrophils (Bld) [#/Vol] 2.68 10*3/uL Normal 1.45-7.50 [facility] Comment on above: Order Comment: Speci men Type: BLOOD SPECIMENOrdering Facility: [facility] Address: [address] [place] [address] Performed By: #### 5 7021-8 ####[facility]ALTHLIA [id number] [place] [address] [place] Neutrophils/100 WBC (Bld) 44.1 % Normal [facility] Comment on above: Order Comment: Speci men Type: BLOOD SPECIMENOrdering Facility: [facility] Address: [address] [place] [address] Performed By: #### 5 7021-8 ####[facility]ALTHLIA [id number] [place] [address] [place] Nucleated RBC (Bld) [#/Vol] 10*3/uL Normal <0.01 [facility] Comment on above: Order Comment: Speci men Type: BLOOD SPECIMENOrdering Facility: [facility] Address: [address] [place] [address] Performed By: #### 5 7021-8 ####[facility]ALTHLIA [id number] [place] [address] [place] Nucleated RBC/100 WBC (Bld) [Ratio] 0.0 /100 WBC Normal [facility] Comment on above: Order Comment: Speci men Type: BLOOD SPECIMENOrdering Facility: [facility] Address: [address] [place] [address] Performed By: #### 5 7021-8 ####[facility] HOSPITALNCLI [id number] [place] [address] [place] Platelet mean volume (Bld) [Entitic vol] 9.6 fL Normal 9.0-12.7 [facility] Comment on above: Order Comment: Speci men Type: BLOOD SPECIMENOrdering Facility: [facility] Address: [address] [place] [address] Performed By: #### 5 7021-8 ####[facility] VICKYRoyaKLAUSLIA [id number] [place] [address] [place] Platelets (Bld) [#/Vol] 301 10*3/uL Normal 150-400 [facility] Comment on above: Order Comment: Speci men Type: BLOOD SPECIMENOrdering Facility: [facility] Address: [address] [place] [address] Performed By: #### 5 7021-8 ####[facility]ITALNCLIA [id number] [place] [address] [place] RBC (Bld) [#/Vol] 5.15 10*6/uL Normal 3.90-5.20 [facility] Comment on above: Order Comment: Speci men Type: BLOOD SPECIMENOrdering Facility: [facility] Address: [address] [place] [address] Performed By: #### 5 7021-8 ####[facility] H[facility]ITALNCLIA [id number] [place] [address] [place] WBC (Bld) [#/Vol] 6.07 10*3/uL Normal 3.70-11.00 [facility] Comment on above: Order Comment: Speci men Type: BLOOD SPECIMENOrdering Facility: [facility] Address: [address] [place] [address] Performed By: #### 5 7021-8 ####[facility] BE[facility]ESWNCLIA [id number] [place] [address] [place] Comprehensive metabolic 2000 panelOrdered By: Mikki Celaya on 05-07-2024 Albumin [Mass/Vol] 4.4 g/dL 3.9 - 4.9 g/dL [facility] ALP [Catalytic activity/Vol] 69 U/L 34 - 123 U/L [facility] ALT [Catalytic activity/Vol] 16 U/L 7 - 38 U/L [facility] Anion gap [Moles/Vol] 9 mmol/L 8 - 15 mmol/L [facility] AST [Catalytic activity/Vol] 10 U/L Low 13 - 35 U/L [facility] Bilirubin [Mass/Vol] 0.6 mg/dL 0.2 - 1 .3 mg/dL [facility] Calcium [Mass/Vol] 9.7 mg/dL 8.5 - 10. 2 mg/dL [facility] Chloride [Moles/Vol] 101 mmol/L 98 - 10 7 mmol/L [facility] CO2 [Moles/Vol] 23 mmol/L 22 - 30 mmol/L [facility] Creatinine [Mass/Vol] 0.43 mg/dL Low 0.58 - 0.96 mg/dL [facility] GFR/1.73 sq M.predicted among non-blacks MDRD (S/P/Bld) [Vol rate/Area] 135 mL/min/{1.73_m2} - PINF [facility] Comment on above: Estimated Glomerular Filtration Rate [...] 216 mg/dL High 74 - 99 mg/dL [facility] Comment on above: The [place] Diab[employer] [place] Association (ADA) provides guidance for [...] Standards of Medical Care in Diabetes 2016, [place] [employer]. Diabetes Care. 2016.39(Suppl 1). Interpretation and review of laboratory results Abnormal [facility] Potassium [Moles/Vol] 3.9 mmol/L 3.7 - 5.1 mmol/L [facility] Protein [Mass/Vol] 7.3 g/dL 6.3 - 8.0 g/dL [facility] Sodium [Moles/Vol] 133 mmol/L Low 136 - 144 mmol/L [facility] Urea nitrogen [Mass/Vol] 7 mg/dL 7 - 21 mg/dL [facility] Comprehensive metabolic 2000 panelon 05-07-2024 Albumin [Mass/Vol] 4.4 g/dL Normal 3.9-4.9 [facility] Comment on above: Order Comment: Milanai gregg Type: BLOOD SPECIMENOrdering Facility: [facility] Address: [address] [place] [address] Performed By: #### 2 4323-8 ####[facility] [id number] [place] [address] [place] ALP [Catalytic activity/Vol] 69 U/L Normal 34-123 [facility] Comment on above: Order Comment: Gume escobedo Type: BLOOD SPECIMENOrdering Facility: [facility] Address: [address] [place] [address] Performed By: #### 2 4323-8 ####[facility]ALTHLIA [id number] [place] [address] [place] ALT [Catalytic activity/Vol] 16 U/L Normal 7-38 [facility] Comment on above: Order Comment: Milanai men Type: BLOOD SPECIMENOrdering Facility: [facility] Address: [address] [place] [address] Performed By: #### 2 4323-8 ####[facility] HEALTHLIA [id number] [place] [address] [place] Anion gap [Moles/Vol] 9 mmol/L Normal 8-15 [facility] Comment on above: Order Comment: Speci men Type: BLOOD SPECIMENOrdering Facility: [facility] Address: [address] [place] [address] Performed By: #### 2 4323-8 ####[facility] [id number] [place] [address] [place] AST [Catalytic activity/Vol] 10 U/L Low 13-35 [facility] Comment on above: Order Comment: Speci men Type: BLOOD SPECIMENOrdering Facility: [facility] Address: [address] [place] [address] Performed By: #### 2 4323-8 ####[facility]ITALNCMOUNT[facility] [id number] [place] [address] [place] Bilirubin [Mass/Vol] 0.6 mg/dL Normal 0.2-1.3 [facility] Comment on above: Order Comment: Speci men Type: BLOOD SPECIMENOrdering Facility: [facility] Address: [address] [place] [address] Performed By: #### 2 4323-8 ####[facility] [id number] [place] [address] [place] Calcium [Mass/Vol] 9.7 mg/dL Normal 8.5-10.2 [facility] Comment on above: Order Comment: Speci men Type: BLOOD SPECIMENOrdering Facility: [facility] Address: [address] [place] [address] Performed By: #### 2 4323-8 ####[facility] [id number] [place] [address] [place] Chloride [Moles/Vol] 101 mmol/L Normal 98-107 [facility] Comment on above: Order Comment: Speci men Type: BLOOD SPECIMENOrdering Facility: [facility] Address: [address] [place] [address] Performed By: #### 2 4323-8 ####[facility] HEALTHLIA [id number] [place] [address] [place] CO2 [Moles/Vol] 23 mmol/L Normal 22-30 [facility] Comment on above: Order Comment: Speci men Type: BLOOD SPECIMENOrdering Facility: [facility] Address: [address] [place] [address] Performed By: #### 2 4323-8 ####[facility] [id number] [place] [address] [place] Creatinine [Mass/Vol] 0.43 mg/dL Low 0.58-0.96 [facility] Comment on above: Order Comment: Speci men Type: BLOOD SPECIMENOrdering Facility: [facility] Address: [address] [place] [address] Performed By: #### 2 4323-8 ####[facility] [id number] [place] [address] [place] Creatinine and Glomerular filtration rate.predicted panel (S/P/Bld) 135 mL/min/1.73m??? Normal >=60 [facility] Comment on above: Order Comment: Speci men Type: BLOOD SPECIMENOrdering Facility: [facility] Address: [address] [place] [address] Result Comment: Ascencion mated Glomerular Filtration Rate [...] actual GFR. Performed By: #### 2 4323-8 ####[facility]ITALNCLIA [id number] [place] [address] [place] Glucose [Mass/Vol] 216 mg/dL High 74-99 [facility] Comment on above: Order Comment: Speci men Type: BLOOD SPECIMENOrdering Facility: [facility] Address: [address] [place] [address] Result Comment: The [place] Diabetes Association (ADA) provides guidance for cutoff [...] Standards of Medical Care in Diabetes 2016, [place] [employer]. Diabetes Care. 2016.39(Suppl 1). Performed By: #### 2 4323-8 ####[facility]ESWCOOK HOSPITALRaymond [id number] [place] [address] [place] Potassium [Moles/Vol] 3.9 mmol/L Normal 3.7-5.1 [facility] Comment on above: Order Comment: Milanai men Type: BLOOD SPECIMENOrdering Facility: [facility] Address: [address] [place] [address] Performed By: #### 2 4323-8 ####[facility] BEACHESWDELIRaymond [id number] [place] [address] [place] Protein [Mass/Vol] 7.3 g/dL Normal 6.3-8.0 [facility] Comment on above: Order Comment: Speci men Type: BLOOD SPECIMENOrdering Facility: [facility] Address: [address] [place] [address] Performed By: #### 2 4323-8 ####[facility] BEACHESWNCLIA [id number] [place] [address] [place] Sodium [Moles/Vol] 133 mmol/L Low 136-144 [facility] Comment on above: Order Comment: Speci men Type: BLOOD SPECIMENOrdering Facility: [facility] Address: [address] [place] [address] Performed By: #### 2 4323-8 ####[facility] [id number] [place] [address] [place] Urea nitrogen [Mass/Vol] 7 mg/dL Normal 7-21 [facility] Comment on above: Order Comment: Speci men Type: BLOOD SPECIMENOrdering Facility: [facility] Address: [address] [place] [address] Performed By: #### 2 4323-8 ####[facility] [id number] [place] [address] [place] HBV surface Ag Ser Qlon 04-10 HBV surface Ag Ql (S) Negative Normal Negative [facility] Comment on above: Order Comment: Speci men Type: BLOOD SPECIMENOrdering Facility: [facility] Address: [address] [place] [address] Performed By: #### 5 195-3, 34112-4, 06930-0 ####[facility] LABCLIA [id number] [place] [address] [place] HCV Ab Ser Qlon 05-07-2024 HCV Ab Ql (S) Negative Normal Negative [facility] Comment on above: Order Comment: Speci men Type: BLOOD SPECIMENOrdering Facility: [facility] Address: [address] [place] [address] Result Comment: The result suggests no evidence of active infection with Hepatitis C virus. Should recent infection be suspected, repeat testing may be considered 4-6 weeks after this draw. Performed By: #### 1 6128-1 ####[facility] LABCLIA [id number] [place] [address] [place] HIV 1+2 Ab IA Qlon 11-29-202 4 HIV 1 and 2 Ab IA.rapid Nom (S/P/Bld) Normal [facility] Comment on above: Order Comment: Speci men Type: BLOOD SPECIMENOrdering Facility: [facility] Address: [address] [place] [address] Result Comment: Test not indicated. Performed By: #### 5 195-3, 84900-7, 48010-3 ####[facility] LABCLIA [id number] [address] STATES OF [facility] HIV 1+2 Ab+HIV1 p24 Ag IA Ql Non-Reactive Normal Nonreactive [facility] Comment on above: Order Comment: Speci men Type: BLOOD SPECIMENOrdering Facility: [facility] Address: [address] [place] [address] Performed By: #### 5 195-3, 02051-0, 41111-2 ####[facility] LABIA [id number] [address] STATES OF [facility] HIV immunoassay testing algorithm interpretation (S/P/Bld) [Interp] Normal [facility] Comment on above: Order Comment: Speci men Type: BLOOD SPECIMENOrdering Facility: [facility] Address: [address] [place] [address] Result Comment: No e vidence of HIV-1 or HIV-2 infection. Should recent infection be suspected, repeat testing may be considered 2-3 weeks after this draw.[place] Rev. Code 3701.243(E): This information has been [...] or diagnoses. Performed By: #### 5 195-3, 38626-3, 90029-8 ####[facility] LABCLIA [id number] [address] [place] PAP TESTon 05-07-2024 ADEQUACY Satisfactory for interpretation. Normal [facility] Comment on above: Order Comment: Speci men Type: FLUID SPECIMENOrdering Facility: [facility] Address: [address] [place] [address] Performed By: #### L [id number] ####[facility] LABCLIA [id number] [place] [address] [place] CASE REPORT Normal [facility] Comment on above: Order Comment: Speci men Type: FLUID SPECIMENOrdering Facility: [facility] Address: [address] [place] [address] Result Comment: Gyne cologic Cytology Report Case: [id number] Provider: Zayda Parker APRN.BLEACHER PULP Collected: 05/07/2024 10:48 AMOrdering Location: OB/Gynecology Received: 05/07/2024 12:13 PMFirst Screen: Jayne [place], [place], ASCPSpecimen: Pap Test, ThinPrep, Cervix Performed By: #### L [id number] ####[facility] LABCLIA [id number] [place] [address] [place] CLINICAL HISTORY, CYTOLOGY, MECHANICAL DEVELOPMENT ENGINEER Routine Exam Normal [facility] Comment on above: Order Comment: Speci men Type: FLUID SPECIMENOrdering Facility: [facility] Address: [address] [place] [address] Result Comment: Preg nant (Indicate Weeks) Performed By: #### L [id number] ####[facility] LABCLIA [id number] [place] [address] [place] CYTOLOGY PAP OTHER INTERPRETATION Predominance of coccobacilli consistent with shift in vaginal hima. Normal [facility] Comment on above: Order Comment: Speci men Type: FLUID SPECIMENOrdering Facility: [facility] Address: [address] [place] [address] Performed By: #### L [id number] ####[facility] [facility] [id number] [place] [address] [place] FINAL PERFORMING LAB Normal [facility] Comment on above: Order Comment: Speci men Type: FLUID SPECIMENOrdering Facility: [facility] Address: [address] [place] [address] Result Comment: Tech nical component, chief of anesthesiology screening performed at [facility], [address] [place] [address] [place] [address] CLIA# [id number] interpretation performed at [facility], [address] [place], [place] [id number] CLIA# [id number] Director: Gavin Boss M.D. Performed By: #### L [id number] ####[facility] [id number] [place] [address] [place] INTERPRETATION, CYTOLOGY, MECHANICAL DEVELOPMENT ENGINEER Normal [facility] Comment on above: Order Comment: Speci men Type: FLUID SPECIMENOrdering Facility: [facility] Address: [address] [place] [address] Result Comment: Nega tive for intraepithelial lesion or malignancy. Performed By: #### L [id number] ####[facility] [id number] [place] [address] [place] LMP 03/13/2024 Normal [facility] Comment on above: Order Comment: Speci men Type: FLUID SPECIMENOrdering Facility: [facility] Address: [address] [place] [address] Performed By: #### L [id number] ####[facility] [id number] [place] [address] [place] PAP DISCLAIMER COMMENT The Pap Smear is a screening test for cervical cancer. False negative results occur with all screening tests, emphasizing the need for rescreening at recommended intervals, and clinical correlation. Normal [facility] Comment on above: Order Comment: Speci men Type: FLUID SPECIMENOrdering Facility: [facility] Address: [address] [id number] Performed By: #### L [id number] ####[facility] LAB[facility] [id number] [address] [address] [place] PAP STAFFING RECRUITER COMMENT Normal [facility] Comment on above: Order Comment: Speci men Type: FLUID SPECIMENOrdering Facility: [facility] Address: [address] [place] [address] Performed By: #### L [id number] ####[facility] [id number] [address] [address] [place] POC TRAY WORKER ULTRASOUNDon 05-07-20 24 Indication Viability; confirm cardiac [...] Read By: Zayda Parker NP MATERNAL MEDICINE [facility] Radiology Study observation (narrative) [facility] Prot/Creat Uron 05-07-2024 Protein/Creatinine (U) [Mass ratio] 0.09 mg/mg Normal <0.15 [facility] Comment on above: Order Comment: Speci men Type: URINE SPECIMENOrdering Facility: [facility] Address: [address] [place] [address] Result Comment: Adul t Proteinuria Categories:<0.15 mg/mg is considered normal to mildly increased0.15 - 0.50 mg/mg is considered moderately increased>0.50 mg/mg is considered severely increasedKDIGO. (2013). KDIGO 2012 Clinical Practice Guideline for the Evaluation and Management of Chronic Kidney Disease. Official Journal of the International Society of Nephrology, 3(1), 1-150. Performed By: #### 2 890-2 ####[facility] LABIA [id number] [place] [address] [place] Protein/Creatinine (U) [Mass ratio]on 05-07-2024 Creatinine (U) [Mass/Vol] 58.6 mg/dL Normal 20.0-300.0 [facility] Comment on above: Order Comment: Speci gregg Type: URINE SPECIMENOrdering Facility: [facility] Address: [address] [place] [address] Performed By: #### 2 890-2 ####[facility] [id number] [place] [address] [place] Protein (U) [Mass/Vol] 5 mg/dL Normal 0-20 [facility] Comment on above: Order Comment: Gume escobedo Type: URINE SPECIMENOrdering Facility: [facility] Address: [address] [place] [address] Performed By: #### 2 890-2 ####[facility] [id number] [place] [id number] [place] RUBELLA IGG ANTIBODYon 05-07 RUBELLA IGG AB, QUAL Negative Abnormal Positive [facility] Comment on above: Order Comment: Milanai gregg Type: BLOOD SPECIMENOrdering Facility: [facility] Address: [address] [place] [address] Result Comment: The result suggests no history of Rubella vaccination or exposure to Rubella virus, however, some individuals with past history of Rubella vaccination may test negative using this test as immunity to Rubella virus wanes over time after vaccination. Please correlate with vaccination history if applicable. Performed By: #### R UBIGG ####[facility] [id number] [place] [address] [place] Reagin and Treponema pallidu m IgG and IgM [Interp]on 05-07-2024 T. pallidum IgG+IgM IA Ql (S) Non-Reactive Normal Nonreactive [facility] Comment on above: Order Comment: Speci men Type: BLOOD SPECIMENOrdering Facility: [facility] Address: [address] [place] [address] Performed By: #### 5 195-3, 09796-9, 66514-3 ####[facility] LABIA [id number] [place] [address] [place] Reagin+T pallidum IgG+IgM Se rPl-Impon 05-07-2024 Reagin and Treponema pallidum IgG and IgM [Interp] Cannot exclude recent Treponemal infection if specimen collected within 7-10 days after appearance of suspect lesions or 2-3 weeks after an exposure. Clinical correlation is required. Normal [facility] Comment on above: Order Comment: Speci men Type: BLOOD SPECIMENOrdering Facility: [facility] Address: [address] [place] [address] Performed By: #### 5 195-3, 02610-5, 58955-9 ####[facility] LABIA [id number] [place] [address] [place] TSH SerPl-aCncon 05-07-2024 TSH Qn 0.807 m[IU]/L Normal 0.270-4.200 [facility] Comment on above: Order Comment: Speci men Type: BLOOD SPECIMENOrdering Facility: [facility] Address: [address] [place] [address] Result Comment: If t he patient is , TSH reference range varies by gestational period:First Trimester (weeks 9-12): 0.180-2.990 mIU/LSecond Trimester: 0.110-3.980 mIU/LThird Trimester: 0.480-4.710 mIU/Jerrell Gonzalez et al. A Practical Approach for the Verifications and Determination of Site- and Trimester-Specific Reference Intervals for Thyroid Function tests in . Thyroid, 2019:29:3:412-420. Lm Grijalva et al. 2017 Guidelines of the [place] Thyroid [employer] for the Diagnosis and Management of Thyroid Disease during and the . Thyroid, 2017:27:3:315-389. Performed By: #### 3 016-3 ####[facility] [id number] [place] [address] [place] TYPE + SCREEN PRENATALon ABO A Normal [facility] Comment on above: Order Comment: Speci men Type: BLOOD SPECIMENOrdering Facility: [facility] Address: [address] [place] [address] Performed By: #### T SPN ####[facility] B[facility]ANKCLIA [id number] [place] [address] [place] Rh Nom (Bld) Positive Normal [facility] Comment on above: Order Comment: Speci men Type: BLOOD SPECIMENOrdering Facility: [facility] Address: [address] [place] [address] Performed By: #### T SPN ####[facility] BLO[facility] BANKIA [id number] [place] [address] [place] TYPE AND SCREEN EXPIRATION 05/10/2024 23:59 Normal [facility] Comment on above: Order Comment: Speci men Type: BLOOD SPECIMENOrdering Facility: [facility] Address: [address] [place] [address] Performed By: #### T SPN ####[facility] BLO[facility] BANKIA [id number] [place] [address] [place] CNOVon 05-03-2024 CNOV Normal [facility] CNPNon 05-03-2024 CNPN Normal [facility] HEMOGLOBIN A1C (POC)on 05-03 HbA1c (Bld) [Mass fraction] 10.5 % Abnormal 4.3 - 5.6 % [facility] Comment on above: Location:Count includes the [facility], [address] [place] [address], [facility] Point of care (POC) Hemoglobin A1c [...] specific diabetes management situations: The POC device second shift supervisor provides a normal range of 4.2% to 6.5% for the HGBA1C POC test. However, the [place] [employer] guidelines indicate that patients with [...] Interpretation and review of laboratory results Abnormal [facility] 04-23-2024 [place] [facility] Normal [facility] 04-19-2024 [place] [facility] Normal [facility] Bacteria identifiedon 2023 Bacteria identified Cx Nom (U) Test: Urine Culture Specimen Source: Clean Catch/Voided Specimen Type: Urine Specimen Date: 04/18/20241916 Result Date: 04/21/2024 105 Result Status: Final result Abnormal: Yes Resulting Lab: [facility] [address] [address] CULTURE >100,000 Escherichia coli (Abnormal) SUSCEPTIBILITY Escherichia coli METHOD MICROSCAN --- AMPICILLIN <=8.000 ug/ml Susceptible CEFAZOLIN <=2 ug/ml Susceptible CEFAZOLIN (UNCOMPLICATED UTIS ONLY) <=2 ug/ml Susceptible CIPROFLOXACIN <=0.250 ug/ml Susceptible GENTAMICIN <=2.000 ug/ml Susceptible NITROFURANTOIN <=32 ug/ml Susceptible PIPERACILLIN/TAZOBACTAM <=8.000 ug/ml Susceptible TRIMETHOPRIM/SULFAMETHO XAZOLE <=2/38 ug/ml Susceptible Abnormal [facility] Comment on above: Performed By: #### 6 30-4 #### AQUILES Gonzalez ([id number]) [facility] ([facility]) [address] [place] [address] C. trachomatis and N. gonorr hoeae DNA SUMIT+probe Nom (Unsp spec)on 04-18-2024 C. trachomatis rRNA SUMIT+probe Ql (Unsp spec) Not detected Not Detected [facility] Interpretation and review of laboratory results Normal [facility] N. gonorrhoeae DNA Probe+sig amp Ql (Unsp spec) Not detected Not Detected [facility] C. trachomatis rRNA SUMIT+probe Ql (Unsp spec) Not detected Normal Not Detected [facility] Comment on above: Performed By: #### 3 6903-3 #### JACQUELYN LOPEZ ([id number]) [facility] ([facility]) [address] [place] [address] N. gonorrhoeae DNA Probe+sig amp Ql (Unsp spec) Not detected Normal Not Detected [facility] Comment on above: Performed By: #### 3 6903-3 #### JACQUELYN LOPEZ ([id number]) [facility] ([facility]) [address] [place] [address] Choriogonadotropin.beta subu niton 04-18-2024 HCG.beta subunit Qn 2171 m[IU]/mL High <5 [facility] Comment [facility] above: Order Comment: Total HCG measurement is performed using the [employer] Access Immunoassay which detects intact HCG and free beta HCG subunit. This test is not indicated for use as a tumor marker. HCG testing is performed using a different test methodology at [facility] than other [facility]. Direct result comparison should only [...] By: #### 2 1198-7 #### JACQUELYN LOPEZ ([id number]) [facility] ([facility]) [address] [place] [address] HCG ( test) IA.rapi d Ql (U)Ordered By: Lemuel Shetty on 04-18-2024 HCG ( test) Ql (U) Positive Abnormal NEGATIVE [facility] Interpretation and review of laboratory results Abnormal [facility] HCG ( test) IA.rapi d Ql (U)on 04-18-2024 HCG ( test) Ql (U) Positive Abnormal NEGATIVE [facility] Comment on above: Performed By: #### 8 0384-1 #### JACQUELYN LOPEZ ([id number]) [facility] ([facility]) [address] [place] [address] HCG.beta subunit Qnon 2023 Interpretation and review of laboratory results Abnormal [facility] Total HCG measuremen t is performed using the [employer] Access Immunoassay which detects intact HCG and free beta HCG subunit. This test is not indicated for use as a tumor marker. HCG testing is performed using a different test methodology at [facility] than other [facility]. Direct result comparison should only be made within the same method. [facility] No Panel Informationon 04-18 Interpretation and review of laboratory results Abnormal [facility] Urinalysis complete W Reflex Culture panel (U)on 04-18-2024 Appearance (U) Turbid Abnormal Clear [facility] Bilirubin (U) [Mass/Vol] Negative NEGATIVE [facility] Color (U) Yellow Light-Yellow , Yellow, Dark-Yellow [facility] Glucose Auto test strip (U) [Mass/Vol] OVER (4+) Abnormal Normal mg/dL [facility] Ketones (U) [Mass/Vol] 100 (3+) Abnormal NEGATIVE mg/dL [facility] Leukocyte esterase Auto test strip Ql (U) 500 [place]nia/ L Abnormal NEGATIVE [facility] Nitrite Auto test strip Ql (U) 2+ Abnormal NEGATIVE [facility] pH (U) 6 [pH] 5.0, 5.5, 6.0, 6.5, 7.0, 7.5, 8.0 [facility] Protein (U) [Mass/Vol] 30 (1+) Abnormal NEGATIVE, 10 (TRACE), 20 (TRACE) mg/dL [facility] RBC (U) [#/Vol] 0.03 (TRACE) Abnormal NEGATIVE [facility] Specific gravity (U) [Rel density] 1.048 Abnormal 1.005 - 1.035 [facility] Urobilinogen (U) [Mass/Vol] 2 (1+) Abnormal Normal mg/dL [facility] Comment on above: Due to [...] is greater than the clinically reportable range. [facility] Appearance (U) Turbid Normal Clear [facility] Comment on above: Order Comment: OVER is reported when the result is greater than the clinically reportable range. Performed By: #### 5 8077-9 #### JACQUELYN LOPEZ ([id number]) [facility] ([facility]) [address] [place] [address] Bilirubin (U) [Mass/Vol] Negative Normal NEGATIVE [facility] Comment on above: Order Comment: OVER is reported when the result is greater than the clinically reportable range. Performed By: #### 5 8077-9 #### JACQUELYN LOPEZ ([id number]) [facility] ([facility]) [address] [place] [address] Color (U) Yellow Normal Light-Yellow , Yellow, Dark-Yellow [facility] Comment on above: Order Comment: OVER is reported when the result is greater than the clinically reportable range. Performed By: #### 5 8077-9 #### JACQUELYN LOPEZ ([id number]) [facility] ([facility]) [address] [place] [address] Glucose Auto test strip (U) [Mass/Vol] OVER (4+) Abnormal Normal [facility] Comment on above: Order Comment: OVER is reported when the result is greater than the clinically reportable range. Performed By: #### 5 8077-9 #### JACQUELYN LOPEZ ([id number]) [facility] ([facility]) [address] [place] [address] Ketones (U) [Mass/Vol] 100 (3+) Abnormal NEGATIVE [facility] Comment on above: Order Comment: OVER is reported when the result is greater than the clinically reportable range. Performed By: #### 5 8077-9 #### JACQUELYN LOPEZ ([id number]) [facility] ([facility]) [address] [place], [place] [address] Leukocyte esterase Auto test strip Ql (U) 500 Zonia/???L Abnormal NEGATIVE [facility] Comment on above: Order Comment: OVER is reported when the result is greater than the clinically reportable range. Performed By: #### 5 8077-9 #### JACQUELYN LOPEZ ([id number]) [facility] ([facility]) [address] [place] [address] Nitrite Auto test strip Ql (U) 2+ Abnormal NEGATIVE [facility] Comment on above: Order Comment: OVER is reported when the result is greater than the clinically reportable range. Performed By: #### 5 8077-9 #### JACQUELYN LOPEZ ([id number]) [facility] ([facility]) [address] [place] [address] pH (U) 6.0 [pH] Normal 5.0, 5.5, 6.0, 6.5, 7.0, 7.5, 8.0 [facility] Comment on above: Order Comment: OVER is reported when the result is greater than the clinically reportable range. Performed By: #### 5 8077-9 #### JACQUELYN LOPEZ ([id number]) [facility] ([facility]) [address] [place] [address] Protein (U) [Mass/Vol] 30 (1+) Abnormal NEGATIVE, 10 (TRACE), 20 (TRACE) [facility] Comment on above: Order Comment: OVER is reported when the result is greater than the clinically reportable range. Performed By: #### 5 8077-9 #### JACQUELYN LOPEZ ([id number]) [facility] ([facility]) [address] [place] [address] RBC (U) [#/Vol] 0.03 (TRACE) Abnormal NEGATIVE [facility] Comment on above: Order Comment: OVER is reported when the result is greater than the clinically reportable range. Performed By: #### 5 8077-9 #### JACQUELYN LOPEZ ([id number]) [facility] ([facility]) [address] [place] [address] Specific gravity (U) [Rel density] 1.048 Normal 1.005-1.035 [facility] Comment on above: Order Comment: OVER is reported when the result is greater than the clinically reportable range. Performed By: #### 5 8077-9 #### JACQUELYN LOPEZ ([id number]) [facility] ([facility]) [address] [place] [address] Urobilinogen (U) [Mass/Vol] 2 (1+) Abnormal Normal [facility] Comment on above: Order Comment: OVER is [...] By: #### 5 8077-9 #### JACQUELYN LOPEZ ([id number]) [facility] ([facility]) [address] [place] [address] Urinalysis microscopic panel Auto Ql (U)on 04-18-2024 Bacteria Auto (Urine sed) [#/Area] 4+ Abnormal NONE SEEN /HPF [facility] Epithelial cells.squamous Auto (Urine sed) [#/Area] 10-25 (FEW) Reference range not established. /HPF [facility] Mucus Auto (Urine sed) [#/Area] FEW Reference range not established. /LPF [facility] RBC Auto (Urine sed) [#/Area] >20 Abnormal NONE, 1-2, 3-5 /HPF [facility] WBC Auto (Urine sed) [#/Area] >50 Abnormal 1-5, NONE /HPF [facility] Bacteria Auto (Urine sed) [#/Area] 4+ /HPF Abnormal NONE SEEN [facility] Comment on above: Performed By: #### 5 3315-8 #### JACQUELYN LOPEZ ([id number]) [facility] ([facility]) [address] [place] [address] Epithelial cells.squamous Auto (Urine sed) [#/Area] 10-25 (FEW) Normal Reference range not established. [facility] Comment on above: Performed By: #### 5 3315-8 #### JACQUELYN LOPEZ ([id number]) [facility] ([facility]) [address] [place] [address] Mucus Auto (Urine sed) [#/Area] FEW Normal Reference range not established. [facility] Comment on above: Performed By: #### 5 3315-8 #### JACQUELYN LOPEZ ([id number]) [facility] ([facility]) [address] [place] [address] RBC Auto (Urine sed) [#/Area] >20 Abnormal NONE, 1-2, 3-5 [facility] Comment on above: Performed By: #### 5 3315-8 #### JACQUELYN LOPEZ ([id number]) [facility] ([facility]) [address] [place] [address] WBC Auto (Urine sed) [#/Area] >50 Abnormal 1-5, NONE [facility] Comment on above: Performed By: #### 5 3315-8 #### VALLADARES JOHN ([id number]) [facility] ([facility]) [address] [place] [address] hCG, quantitative, on 04-18-2024 HCG.beta subunit Qn 2171 m[IU]/mL [facility] Comment on above: Low-level positive H CG [...] # 0.01 x10EE3/UL Normal 0.00 - 0.10 [facility] Comment on above: Performed By: #### 2 45938 ####[facility],[address] [place], [place] [address] Basophils/100 WBC (Bld) 0.3 % Normal 0.0 - 2.0 [facility] Comment on above: Performed By: #### 2 26062 ####[facility],[address] [place] [address] CBC + DIFF Normal [facility] Comment on above: Result Comment: CBC- COMPLETE BLOOD COUNT Performed By: #### 2 33959 ####[facility],[address] [place] [address] EO # 0.11 x10EE3/UL Normal 0.00 - 0.50 [facility] Comment on above: Performed By: #### 2 17259 ####[facility],[address] [place] [address] Eosinophils/100 WBC (Bld) 2.4 % Normal 0.0 - 7.0 [facility] Comment on above: Performed By: #### 2 56706 ####[facility],[address] [place], [place] [address] Erythrocyte distribution width (RBC) [Ratio] 12.7 % Normal 12.0 - 15.6 [facility] Comment on above: Performed By: #### 2 25497 ####[facility],[address] [place], [place] [address] Hematocrit (Bld) [Volume fraction] 44.1 % Normal 34.0 - 46.0 [facility] Comment on above: Performed By: #### 2 45010 ####[facility],[address] [place] [address] Hemoglobin (Bld) [Mass/Vol] 15.2 g/dL Normal 12.0 - 16.0 [facility] Comment on above: Performed By: #### 2 64293 ####[facility],[address] [place] [address] Lymph # 1.74 x10EE3/UL Normal 0.80 - 2.80 [facility] Comment on above: Performed By: #### 2 80243 ####[facility],[address] [place] [address] Lymphocytes/100 WBC (Bld) 38.8 % Normal 20.0 - 45.0 [facility] Comment on above: Performed By: #### 2 56434 ####[facility],[address] [place] [address]6918 MANUAL DIFF N/A Normal [facility] Comment on above: Performed By: #### 2 30227 ####[facility],[address] [place] [address] 65833 MCH (RBC) [Entitic mass] 29 pg Normal 27 - 33 [facility] Comment on above: Performed By: #### 2 60642 ####[facility],[address] [place] [address]3768 MCHC 34 X10 3 Normal 32 - 36 [facility] Comment on above: Performed By: #### 2 10175 ####[facility],[address] [place] [address]5558 MCV (RBC) [Entitic vol] 84 fL Normal 80 - 99 [facility] Comment on above: Performed By: #### 2 38935 ####[facility],[address] [place] [address] [place] # 0.48 x10EE3/UL Normal 0.20 - 1.00 [facility] Comment on above: Performed By: #### 2 06429 ####[facility],[address] [place] [address] MONOS % 10.7 % High 0.0 - 10.0 [facility] Comment on above: Performed By: #### 2 03240 ####[facility],[address] [place] [address] Morphology Jorge (Bld) [Interp] N/A Normal [facility] Comment on above: Performed By: #### 2 35031 ####[facility],[address] [place] [address] 87554 Neut # 2.14 x10EE3/UL Normal 1.50 - 7.10 [facility] Comment on above: Performed By: #### 2 71424 ####[facility],[address] [place] [address] 82950 Neutrophils/100 WBC (Bld) 47.9 % Normal 46.0 - 76.0 [facility] Comment on above: Performed By: #### 2 95085 ####[facility],[address] [place] [address] 68826 PLATELET 283 x10EE3/UL Normal 150 - 450 [facility] Comment on above: Performed By: #### 2 87034 ####[facility],[address] [place] [address] 40772 Platelet mean volume (Bld) [Entitic vol] 7.1 fL Normal 6.6 - 10.5 [facility] Comment on above: Result Comment: AUTO MATED DIFFERENTIAL Performed By: #### 2 60981 ####[facility],[address] [place] [address] 16184 RBC 5.24 x 10EE6/UL Normal 4.10 - 5.30 [facility] Comment on above: Performed By: #### 2 77683 ####[facility],[address] [place] [address] 43843 WBC 4.5 x 10EE3/UL Normal 4.5 - 10.8 [facility] Comment on above: Performed By: #### 2 42676 ####[facility],[address] [place] [address] 94687 CMP with eGFRon 04-15-2024 AGE 29 years Normal [facility] Comment on above: Performed By: #### 2 21948 #### [facility],[address] [place] [address] 72155 Albumin [Mass/Vol] 3.7 g/dL Normal 3.4 - 5.0 [facility] Comment on above: Performed By: #### 2 57026 #### [facility],[address] [place] [address] 88996 Albumin/Globulin [Mass ratio] 0.9 {ratio} Normal 0.9 - 1.6 [facility] Comment on above: Performed By: #### 2 34923 #### [facility],[address] [place] [address] 06181 ALK PHOS 89 U/L Normal 46 - 116 [facility] Comment on above: Performed By: #### 2 72851 #### [facility],[address] [place] [address] 05493 ALT [Catalytic activity/Vol] 28 U/L Normal 16 - 63 [facility] Comment on above: Performed By: #### 2 13227 #### [facility],[address] [place] [address] 11184 Anion gap [Moles/Vol] 20 mmol/L Normal 10 - 20 [facility] Comment on above: Performed By: #### 2 69420 #### [facility],[address] [place] [address] 49157 AST [Catalytic activity/Vol] 12 U/L Low 13 - 39 [facility] Comment on above: Performed By: #### 2 40787 #### [facility],[address] [place] [address] 54882 B/C RATIO 19 ratio Normal 0 - 30 [facility] Comment on above: Performed By: #### 2 51002 #### [facility],[address] [place] [address] 65051 Bilirubin [Mass/Vol] 0.7 mg/dL Normal 0.2 - 1.0 [facility] Comment on above: Performed By: #### 2 52507 #### [facility],[address] [place] [address] 05917 Calcium [Mass/Vol] 8.9 mg/dL Normal 8.5 - 10.1 [facility] Comment on above: Performed By: #### 2 03425 #### [facility],[address] [place] [address] 65574 Chloride [Moles/Vol] 101 mmol/L Normal 98 - 107 [facility] Comment on above: Performed By: #### 2 46060 #### [facility],[address] [place] [address] 98556 CMP with eGFR Normal [facility] Comment on above: Result Comment: COMP REHENSIVE METABOLIC PANEL Performed By: #### 2 71773 #### [facility],[address] [place] [address] 17451 CO2 [Moles/Vol] 20.5 mmol/L Low 21.0 - 32.0 [facility] Comment on above: Performed By: #### 2 54696 #### [facility],[address] [place] [address] 80830 Creatinine [Mass/Vol] 0.64 mg/dL Normal 0.55 - 1.02 [facility] Comment on above: Performed By: #### 2 84853 #### [facility],[address] [place] [address] 92913 GFR/1.73 sq M.predicted among non-blacks MDRD (S/P/Bld) [Vol rate/Area] mL/min/{1.73_m2} Normal 60 - 999 [facility] Comment on above: Performed By: #### 2 87370 #### [facility],[address] [place], [place] [address] Result Comment: ACCO RDING TO THE NATIONAL KIDNEY DISEASE EDUCATION PROGRAM(NKDE), A NORMAL eGFR IS A VALUE GREATER THAN OR EQUAL TO 60 ML/MIN/1.73 SQ METERS. CHRONIC KIDNEY DISEASE: <60mL/MIN/1.73 SQ METERS KIDNEY FAILURE: <15mL/MIN/1.73 SQ METERS THIS TEST SHOULD ONLY BE USED FOR PATIENTS 18 YEARS OF AGE AND OLDER. Globulin (S) [Mass/Vol] 4.1 g/dL High 1.5 - 3.8 [facility] Comment on above: Performed By: #### 2 92362 #### [facility],[address] [place] [address] 16977 Glucose [Mass/Vol] 235 mg/dL High 74 - 106 [facility] Comment on above: Performed By: #### 2 39723 #### [facility],[address] [place] [address] 88169 Potassium [Moles/Vol] 3.4 mmol/L Low 3.5 - 5.1 [facility] Comment on above: Performed By: #### 2 63284 #### [facility],[address] [place] [address] 16249 Protein [Mass/Vol] 7.8 g/dL Normal 6.4 - 8.2 [facility] Comment on above: Performed By: #### 2 14394 #### [facility],[address] [place] [address] 77879 Sodium [Moles/Vol] 138 mmol/L Normal 136 - 145 [facility] Comment on above: Performed By: #### 2 16870 #### [facility],[address] [place] [address] 06348 Urea nitrogen [Mass/Vol] 12 mg/dL Normal 7 - 18 [facility] Comment on above: Performed By: #### 2 76215 #### [facility],[address] [place] [address] 37643 ED MED ADMINISTRATION DETAIL on 04-15-2024 ED MED ADMINISTRATION DETAIL Board Certified Orthodontist Medication Administration Record [address] [address] [id number] 04/14/2024 Patient: MELISSA KAUR Sex: Female : [...] Leona Roberts R.N. 1 of 1 Normal [facility] ED NURSES CLINICAL NOTEon ED NURSES CLINICAL NOTE Nurse Narrative Nurse Clinical Narrative [address] [address] [id number] 04/14/2024 Patient: MELISSA KAUR Sex: Female : [...] disease exposure. ABUSE ASSESSMENT: The patient answered "yes" to the question(s) "Do you feel safe in your home?" and "no" to the question(s) Are you afraid to go home?". SELF HARM ASSESSMENT: Self harm assessment was performed. The patient answered "no" to the question(s) "Have you recently felt down, depressed, or hopeless?" and "Do you have thoughts of harming or killing yourself?". FALL RISK ASSESSMENT: Fall risk assessment completed. [...] Roberts R.N. 02:56 04/15/24. Patient transported with engine emission technician. (to [employer]). -- 03:06 04/15/24 FABRIZIO Roberts R.N.Correction -- 03:06 04/15/24 FABRIZIO Roberts R.N. 02:56 04/15/24. Patient transported by stretcher with engine emission technician. (to [employer]). -- 03:07 04/15/24 FABRIZIO Roberts R.N. 03:01 04/15/24. Patient transported to radiology. -- 03:06 04/15 (more content not included)... Normal [facility] ED ORDER SHEET (CPOE ONLY)on 04-15-2024 ED ORDER SHEET (CPOE ONLY) Order Sheet Order Sheet [address] [place] [address] [id number] 04/14/2024 Patient: MELISSA KAUR Sex: Female : 1995 Age: 29y MEASUREMENTS: Wt: 77.1 kg ALLERGIES: Reglan, Seroquel, Zofran, Zoloft MEDICATION/IV/DRIP/FLUI D ORDERS Order Description Priority Entered Acknowledged Completed IV NS 0.9 %1000 mL at 999 00:22 04/15/2024 00:54 01:23 mL/hr (NOW x1) Milly Ji D.O. 04/15/2024 04/15/2024 Gely Patterson R.NJuno LAB ORDERS Order Description Priority Entered Acknowledged Collected Completed CBC w Diff Stat Stat 00:22 04/15/2024 00:30 04/15/2024 01:19 04/15/2024 Viola Hansen R.N. Seth Lapp, R.N. CMP Stat Stat 00:22 04/15/2024 00:30 04/15/2024 01:19 04/15/2024 Viola Hansen R.N. Seth Lapp RJunoNJuno Urinalysis Stat Stat 00:22 04/15/2024 00:30 04/15/2024 02:17 04/15/2024 Viola Hansen R.N. Anne Rutt, R.N. HCG, Qual Serum Stat Stat 00:23 04/15/2024 00:30 04/15/2024 01:19 04/15/2024 1 of 2 Order Sheet Viola Hansen R.N. Seth Lapp, R.N. HCG, Quant Serum Stat Stat 02:17 04/15/2024 02:17 04/15/2024 02:21 04/15/2024 Viola Hansen R.N. Seth Lapp RMegan quantitative hcg as 05:03 04/15/2024 05:24 04/15/2024 outpatient on 04/17/2024. Viola Hansen R.N. results to [facility] DIAGNOSTIC STUDY ORDERS Order Description [...] 04/15/2024 minutes Viola Hansen R.N. Seth Lapp RJunoNJuno [Electronically signed by Milly Ji D.O. (04/15/2024 09:07 EST)] 2 of 2 Normal [facility] ED PHYSICIAN CLINICAL REPORT on 04-15-2024 ED PHYSICIAN CLINICAL REPORT Narrative Physician Clinical Narrative [address] [address] [id number] 04/14/2024 Patient: MELISSA KAUR Sex: Female : [...] x 10/UL 4.5 - 10.8 Final EST Narrative 04/15/2024 01:39 RBC 5.24 x 10/UL [...] 0.3 % 0.0 - 2.0 Final EST Narrative 04/15/2024 01:39 Lymph # 1.74 x10/UL 0.80 - 2.80 Final EST 04/15/2024 01:39 Neut # 2.14 x10/UL 1.50 - 7.10 Final EST 04/15/2024 01:39 [place] # 0. (more content not included)... Normal [facility] ED SUPER BILL[facility] 04-15-[facility] [place] [address] [facility] [place] [address] [id number] 04/14/2024 Patient: MELISSA KAUR Sex: Female : 1995 Age: 29y Item Facility Professional Category Description Code Code Quantity Fee Total Drugs Normal Saline 318571 1 $0.00 $0.00 1000cc (376501) Nurse/E/M EMERGENCY 317856 1 $0.00 $0.00 DEPARTMENT VISIT HIGH/URGENT SEVERITY (44823-82) Nurse/IV/IM/Infusions Hydration initial 783996 1 $0.00 $0.00 (11976) Grand Total $0.00 Providers Milly Ji D.O. Chief Complaint [facility]. [facility] First trimester ; positive test in emergency department. Ultrasound was performed but could not determine the location of the . ICD-10 Codes Z34.91: Encounter for supervision of normal , unspecified, first trimester Z3A.00: Weeks of gestation of not specified 2 of 2 Normal [facility] ED VISIT SUMMARYon ED VISIT SUMMARY Visit Overview Visit Overview [address] [place] [address] [id number] 04/14/2024 Patient: MELISSA KAUR Sex: Female : [...] hcg as outpatient on 04/17/2024. results to [facility] Urinalysis US OB<14WK Single Gestation CLINICAL IMPRESSION FIRST TRIMESTER ; POSITIVE TEST IN EMERGENCY DEPARTMENT. ULTRASOUND WAS PERFORMED BUT COULD NOT DETERMINE THE LOCATION OF THE 3 of 3 Normal [facility] ED VITALS FLOW SHEETon 04-15 ED VITALS FLOW SHEET Vitals Vital Sign Flow Sheet [place] [address] [place] [address] [id number] 04/14/2024 Patient: MELISSA KAUR Sex: Female : [...] 98.5 F 6 2 of 2 Normal [facility] PREG SERUM QUANTon 4 HCG QUANTITATIVE 433 mIU/mL High 0 - 6 [facility] Comment on above: Result Comment: Refe virgen [...] 3RD TRIMESTER 1000-50,000 Performed By: #### 2 85309 ####[facility],[address] [place] [address] 30515 SERUM QUALon 04-15 EXTERNAL QC DONE? YES Normal [facility] Comment on above: Performed By: #### 2 79015 #### [facility],[address] [place] [address] INTERNAL QC PASS Normal [facility] Comment on above: Performed By: #### 2 60190 #### [facility],[address] [place], [place] [address] SER Positive Normal NEGATIVE [facility] Comment on above: Performed By: #### 2 42170 #### [facility],[address] [place] [address] 81587 URINALYSISon 04-15-2024 Amorphous NONE Normal [facility] Comment on above: Performed By: #### 2 71959 #### [facility],[address] [place] [address] 19236 Bacteria TRACE Normal [facility] Comment on above: Performed By: #### 2 89968 #### [facility],[address] [place] [address] 99396 Bilirubin Ql (U) Negative Normal NORMAL: NEGATIVE [facility] Comment on above: Performed By: #### 2 30520 #### [facility],[address] [place] [address] 91410 Casts NONE Normal [facility] Comment on above: Performed By: #### 2 97037 #### [facility],[address] [place] [address] 55129 Clarity (U) clear Normal NORMAL: CLEAR [facility] Comment on above: Performed By: #### 2 73751 #### [facility],[address] [place] [address] 92075 Color (U) yellow Normal NORMAL: YELLOW [facility] Comment on above: Performed By: #### 2 72552 #### [facility],[address] [place] [address] 74309 Crystals LM Nom (Urine sed) NONE Normal [facility] Comment on above: Performed By: #### 2 71994 #### [facility],[address] [place] [address] 74810 Epi Cells MODERATE Normal [facility] Comment on above: Performed By: #### 2 83880 #### [facility],[address] [place] [address] Glucose Ql (U) 1000 Abnormal NORMAL: NORMAL [facility] Comment on above: Performed By: #### 2 96352 #### [facility],[address] [place], [place] [address] Hemoglobin Ql (U) Negative Normal NORMAL: NEGATIVE [facility] Comment on above: Performed By: #### 2 04562 #### [facility],[address] [place] [address] 30853 Ketone 150 Abnormal NORMAL: NEGATIVE [facility] Comment on above: Performed By: #### 2 99532 #### [facility],[address] [place] [address] 89037 Leukocytes 25 Abnormal NORMAL: NEGATIVE [facility] Comment on above: Performed By: #### 2 46799 #### [facility],[address] [place] [address] 66489 Mucous NONE Normal [facility] Comment on above: Performed By: #### 2 73349 #### [facility],[address] [place] [address] 10555 Nitrite Ql (U) Negative Normal NORMAL: NEGATIVE [facility] Comment on above: Performed By: #### 2 24566 #### [facility],[address] [place] [address] pH (U) 5 [pH] Normal NORMAL: 5.0-8.0 [facility] Comment on above: Performed By: #### 2 06956 #### [facility],[address] [place] [address] Protein Ql (U) 15 Abnormal NORMAL: NEGATIVE [facility] Comment on above: Performed By: #### 2 43282 #### [facility],[address] [place] [address] Rbc 0-5 Normal 0-3/hpf [facility] Comment on above: Performed By: #### 2 07313 #### [facility],[address] [place] [address] Sp [place] 1.025 Normal NORMAL: 1.010-1.030 [facility] Comment on above: Performed By: #### 2 58588 #### [facility],[address] [place] [address] Specimen Type R Normal [facility] Comment on above: Performed By: #### 2 36014 #### [facility],[address] [place] [address] Urinalysis dipstick W Reflex Microscopic panel (U) SEE BELOW Normal [facility] Comment on above: Result Comment: MICR OSCOPIC Performed By: #### 2 32429 #### [facility],[address] [place] [address] Urobilinog NORM Normal NORMAL: NORMAL [facility] Comment on above: Performed By: #### 2 94978 #### [place] [address] Wbc 1-5 Normal 0-5/hpf [facility] Comment on above: Performed By: #### 2 67512 #### [facility],[address] [place] [address] Yeast NONE Normal [facility] Comment on above: Performed By: #### 2 49876 #### [facility],[address] [place], [place] [address] US OB ENDO VAGINALon 024 US OB ENDO VAGINAL [place] [address] Patient: MELISSA KAUR Phone#: : 1995 Age: 29 Gender: F Pt. Type: ER Account: [id number] Location: 052 Ordering: MILLY JI Exam Date: 04/15/2024/2:54 Family Phys: JAMARI BYRNE Charge Code: 624348 Physician: Richardson Order #: [id number] Dose#: PROCEDURE: OB INITIAL <14 WEEKS ULTRASOUND, [...] Nobles MD on 04/15/2024 at 9:02 Normal [facility] US OB INITIAL< 14 WEEKS; 1st GESTATIONon 04-15-2024 US OB INITIAL< 14 WEEKS; 1st GESTATION [place] [phone] Patient: MELISSA KAUR Phone#: : 1995 Age: 29 Gender: F Pt. Type: ER Account: [id number] Location: 052 Ordering: MILLY JI Exam Date: 04/15/2024/2:54 Family Phys: JAMARI BYRNE Charge Code: 735227 Physician: Richardson Order #: [id number] Dose#: PROCEDURE: OB INITIAL <14 WEEKS ULTRASOUND, [...] Nobles MD on 04/15/2024 at 9:02 Normal [facility] CNPNon 04-14-2024 CNPN Normal [facility] Basic metabolic 2000 panelon 12-16-2023 Anion gap [Moles/Vol] 14 mmol/L Normal 10-20 [facility] Comment on above: Performed By: #### 2 4321-2 #### JACQUELYN LOPEZ ([id number]) [facility] ([facility]) [address] [place] [address] 01118 Calcium [Mass/Vol] 9.3 mg/dL Normal 8.6-10.3 [facility] Comment on above: Performed By: #### 2 4321-2 #### JACQUELYN LOPEZ ([id number]) [facility] ([facility]) [address] [place] [address] [place] [address] Chloride [Moles/Vol] 101 mmol/L Normal 98-107 [facility] Comment on above: Performed By: #### 2 4321-2 #### JACQUELYN LOPEZ ([id number]) [facility] ([facility]) [facility] [place] [address] CO2 [Moles/Vol] 26 mmol/L Normal 21-32 [facility] Comment on above: Performed By: #### 2 4321-2 #### JACQUELYN LOPEZ ([id number]) [facility] ([facility]) [address] [place] [address] 44507 Creatinine [Mass/Vol] 0.54 mg/dL Normal 0.50-1.05 [facility] Comment on above: Performed By: #### 2 432-2 #### JACQUELYN LOPEZ ([id number]) [facility] ([facility]) [address] [place] [address] 24354 GFR/1.73 sq M.predicted MDRD (S/P/Bld) [Vol rate/Area] mL/min/{1.73_m2} Normal >60 [facility] Comment on above: Result Comment: Calc ulations of estimated GFR are performed using the 2020 CKD-EPI Study Refit equation without the race variable for the IDMS-Traceable creatinine methods. https://jasn.asnjournals.org/content/early//ASN.756167 6085 Performed By: #### 2 432-2 #### JACQUELYN LOPEZ ([id number]) [facility] ([facility]) [address] [place] [address] 71269 Glucose [Mass/Vol] 207 mg/dL High 74-99 [facility] Comment on above: Performed By: #### 2 4321-2 #### JACQUELYN LOPEZ ([id number]) [facility] ([facility]) [address] [place] [address] 84834 Potassium [Moles/Vol] 3.7 mmol/L Normal 3.5-5.3 [facility] Comment on above: Performed By: #### 2 4321-2 #### JACQUELYN LOPEZ ([id number]) [facility] ([facility]) [address] [place] [address] 69723 Sodium [Moles/Vol] 137 mmol/L Normal 136-145 [facility] Comment on above: Performed By: #### 2 4321-2 #### JACQUELYN LOPEZ ([id number]) [facility] ([facility]) [address] [place] [address] 48535 Urea nitrogen [Mass/Vol] 7 mg/dL Normal 6-23 [facility] Comment on above: Performed By: #### 2 4321-2 #### JACQUELYN LOPEZ ([id number]) [facility] ([facility]) [address] [place], [place] [address] HbA1c (Bld) [Mass fraction]o n 12-16-2023 Average glucose Estimated from glycated hemoglobin (Bld) [Mass/Vol] 246 mg/dL Normal Not Established [facility] Comment on above: Order Comment: Diagn osis of Diabetes-Adults Non-Diabetic: < or = 5.6% Increased risk for developing diabetes: 5.7-6.4% Diagnostic of diabetes: > or = 6.5% Performed By: #### 4 548-4 #### JACQUELYN LOPEZ ([id number]) [facility] ([facility]) [address] [place], [place] [address] Hemoglobin A1c/Hemoglobin.to bg 12-16-2023 HbA1c (Bld) [Mass fraction] 10.2 % High see below [facility] Comment on above: Order Comment: Diagn osis of Diabetes-Adults Non-Diabetic: < or = 5.6% Increased risk for developing diabetes: 5.7-6.4% Diagnostic of diabetes: > or = 6.5% Performed By: #### 4 548-4 #### JACQUELYN LOPEZ ([id number]) [facility] ([facility]) [address] [place] [address] 23286 Basic metabolic 2000 panelon 09-15-2023 Anion gap [Moles/Vol] 13 mmol/L Normal 10-20 [facility] Comment on above: Performed By: #### 2 4321-2 #### JACQUELYN LOPEZ ([id number]) [facility] ([facility]) [facility] [place] [address] Calcium [Mass/Vol] 9.9 mg/dL Normal 8.6-10.3 [facility] Comment on above: Performed By: #### 2 4321-2 #### JACQUELYN LOPEZ ([id number]) [facility] ([facility]) [address] [place] [address] 02657 Chloride [Moles/Vol] 99 mmol/L Normal 98-107 [facility] Comment on above: Performed By: #### 2 4321-2 #### JACQUELYN LOPEZ ([id number]) [facility] ([facility]) [address] [place] [address] 11643 CO2 [Moles/Vol] 28 mmol/L Normal 21-32 [facility] Comment on above: Performed By: #### 2 4321-2 #### JACQUELYN LOPEZ ([id number]) [facility] ([facility]) [address] [place] [address] 15654 Creatinine [Mass/Vol] 0.57 mg/dL Normal 0.50-1.05 [facility] Comment on above: Performed By: #### 2 4321-2 #### JACQUELYN LOPEZ ([id number]) [facility] ([facility]) [address] [place] [address] 96002 GFR/1.73 sq M.predicted MDRD (S/P/Bld) [Vol rate/Area] mL/min/{1.73_m2} Normal >60 [facility] Comment on above: Result Comment: Calc ulations of estimated GFR are performed using the 2020 CKD-EPI Study Refit equation without the race variable for the IDMS-Traceable creatinine methods. https://jasn.asnjournals.org/content/early/ASN.259566 9592 Performed By: #### 2 4321-2 #### JACQUELYN LOPEZ ([id number]) [facility] ([facility]) [address] [place] [address] 79847 Glucose [Mass/Vol] 208 mg/dL High 74-99 [facility] Comment on above: Performed By: #### 2 4321-2 #### JACQUELYN LOPEZ ([id number]) [facility] ([facility]) [address] [place] [address] Potassium [Moles/Vol] 4.0 mmol/L Normal 3.5-5.3 [facility] Comment on above: Performed By: #### 2 4321-2 #### JACQUELYN LOPEZ ([id number]) [facility] ([facility]) [address] [place] [address] Sodium [Moles/Vol] 136 mmol/L Normal 136-145 [facility] Comment on above: Performed By: #### 2 4321-2 #### JACQUELYN LOPEZ ([id number]) [facility] ([facility]) [address] [place] [address] Urea nitrogen [Mass/Vol] 10 mg/dL Normal - [facility] Comment on above: Performed By: #### 2 4321-2 #### JACQUELYN LOPEZ ([id number]) [facility] ([facility]) [address] [place] [address] HbA1c (Bld) [Mass fraction]o n 09-15-2023 Average glucose Estimated from glycated hemoglobin (Bld) [Mass/Vol] 226 mg/dL Normal Not Established [facility] Comment on above: Order Comment: Diagn osis of Diabetes-Adults Non-Diabetic: < or = 5.6% Increased risk for developing diabetes: 5.7-6.4% Diagnostic of diabetes: > or = 6.5% Monitoring of Diabetes Age (y)....................... Therapeutic Goal (%) Adults: >18.........................<7.0 Pediatrics: 13-18...................<7.5 Pediatrics: 7-12....................<8.0 Pediatrics: 0-6..................... 7.5-8.5 [place]. Diabetes Care 33(S1), Jun 2009 Performed By: #### 4 548-4 #### JACQUELYN LOPEZ ([id number]) [facility] ([facility]) [address] [place] [address] Hemoglobin A1c/Hemoglobin.to bg 09-15-2023 HbA1c (Bld) [Mass fraction] 9.5 % High see below [facility] Comment on above: Order Comment: Diagn osis of Diabetes-Adults Non-Diabetic: < or = 5.6% Increased risk for developing diabetes: 5.7-6.4% Diagnostic of diabetes: > or = 6.5% Monitoring of Diabetes Age (y)....................... Therapeutic Goal (%) Adults: >18.........................<7.0 Pediatrics: 13-18...................<7.5 Pediatrics: 7-12....................<8.0 Pediatrics: 0-6..................... 7.5-8.5 [place]. Diabetes Care 33(S1), Jun 2009 Performed By: #### 4 [id number] #### JACQUELYN LOPEZ ([id number]) [facility] ([facility]) [address] [place] [address] BASIC METABOLIC PANELon 06-2 Anion gap [Moles/Vol] 13 mmol/L Normal 10 - 20 [facility] Comment on above: Performed By: #### B MP #### [address] [address] Calcium [Mass/Vol] 9.2 mg/dL Normal 8.6 - 10.[address] [facility] Comment on above: Performed By: #### B MP #### [address] [address] Chloride [Moles/Vol] 101 mmol/L Normal 98 - 107 [facility] Comment on above: Performed By: #### B MP #### [address] [address] Creatinine [Mass/Vol] 0.55 mg/dL Normal 0.50 - 1.05 [facility] Comment on above: Performed By: #### B MP #### [address] [address] eGFR FEMALE >90 Normal >90 [facility] Comment on above: Result Comment: CALC ULATIONS OF ESTIMATED GFR ARE PERFORMED USING THE 2020 CKD-EPI STUDY REFIT EQUATION WITHOUT THE RACE VARIABLE FOR THE IDMS-TRACEABLE CREATININE METHODS. https://jasn.asnjournals.org/content/early//ASN.909823 1749 Performed By: #### B MP #### [address] [address] Glucose [Mass/Vol] 296 mg/dL High 74 - [address] [facility] Comment on above: Performed By: #### B MP #### [address] [address] HCO3 (Bld) [Moles/Vol] 26 mmol/L Normal 21 - 32 [facility] Comment on above: Performed By: #### B MP #### [address] [address] Potassium [Moles/Vol] 3.8 mmol/L Normal 3.5 - 5.3 [facility] Comment on above: Performed By: #### B MP #### [address] [address] Sodium [Moles/Vol] 136 mmol/L Normal 136 - [address] [facility] Comment on above: Performed By: #### B MP #### [address] [address] Urea nitrogen [Mass/Vol] 10 mg/dL Normal 6 - 23 [facility] Comment on above: Performed By: #### B MP #### [address] [address] Lab Specimen Source Normal [facility] Comment on above: Performed By: #### B MP #### [address] [address] Performed By: #### H BA1E #### [address] [address] HEMOGLOBIN A1Con 12-03-2022 Glucose [Mass/Vol] 209 mg/dL Normal [facility] Comment on above: Performed By: #### H BA1E #### [address] [address] HbA1c (Bld) [Mass fraction] 8.9 % Abnormal [facility] Comment on above: Result Comment: Diag nosis of Diabetes-Adults Non-Diabetic: < or = 5.6% Increased risk for developing diabetes: 5.7-6.4% Diagnostic of diabetes: > or = 6.5% . Monitoring of Diabetes Age (y) Therapeutic Goal (%) Adults: >18 <7.0 Pediatrics: 13-18 <7.5 7-12 <8.0 0- 6 7.5-8.5 [place]. Diabetes Care 33(S1), Jun 2009. Performed By: #### H BA1E #### [address] [address] HCG ( test) Ql (U)o n 08-17-2022 Internal Control Pass [facility] Interpretation and review of laboratory results Normal [facility] POC , Urineon 08-17 HCG ( test) Ql (U) Negative Negative [facility] Hemoglobin A1Con 05-24-2022 Glucose [Mass/Vol] 246 mg/dL [facility] Work Phone: HbA1c (Bld) [Mass fraction] 10.2 % Abnormal [facility] Work Phone: Comment on above: Diagnosis of Diabete s-Adults Non-Diabetic: < or = 5.6% Increased risk for developing diabetes: 5.7-6.4% Diagnostic of diabetes: > or = 6.5%. Monitoring of Diabetes Age (y) Therapeutic Goal (%) Adults: >18 <7.0 Pediatrics: 13-18 <7.5 7-12 <8.0 0- 6 7.5-8.5 [place]. Diabetes Care 33(S1), Jun 2009. Laboratory - Chemistry and C hemistry - challengeon 05-24-2022 Anion gap [Moles/Vol] 14 mmol/L 10 - 20 [facility] Work Phone: Calcium [Mass/Vol] 9.8 mg/dL 8.6 - 10.3 [facility] Work Phone: Chloride [Moles/Vol] 101 mmol/L 98 - 107 [facility] Work Phone: CO2 [Moles/Vol] 24 mmol/L 21 - 32 [facility] Work Phone: Creatinine [Mass/Vol] 0.58 mg/dL See Below [facility] Work Phone: Comment on above: Reference Range: 0.5 0 - 1.05 Glucose [Mass/Vol] 263 mg/dL above high threshold 74 - 99 [facility] Work Phone: Potassium [Moles/Vol] 3.5 mmol/L 3.5 - 5.3 [facility] Work Phone: Sodium [Moles/Vol] 135 mmol/L below low threshold 136 - 145 [facility] Work Phone: Urea nitrogen [Mass/Vol] 12 mg/dL 6 - 23 [facility] Work Phone: No Panel Informationon 05-24 >90 >90 [facility] Work Phone: Comment on above: CALCULATIONS OF ASCENCION MATED GFR ARE PERFORMED USING THE 2020 CKD-EPI STUDY REFIT EQUATION WITHOUT THE RACE VARIABLE FOR THE IDMS-TRACEABLE CREATININE METHODS.https://jasn.asnjournals.org/content/early// N.1941955443 Office Visit ([facility] e)on 05-24-2022 Follow-up visit Diagnoses/Problems Hyperglycemia due to diabetes mellitus (250.02) (E11.65) Anxiety and depression (300.00,311) (F41.9,F32.A) Bipolar depression (296.50) (F31.9) Orders Hyperglycemia due to diabetes mellitus Start: Pioglitazone HCl - 15 MG Oral Tablet; Take 1 tablet daily Follow-up visit in 3 months Outpatient Follow-up Status: Hold For - Scheduling Requested for: [id number] Hemoglobin A1C; Status:Active; Requested for:93Swm6341; PMH: History of diabetes mellitus Renew: Trulicity [...] 25 MG TABS Vitals Vital Signs Recorded: 86Fju2525 10:15AM Heart Rate94 Dewjmofr513 Lfitwvykf69 Oyqwao663.48 cm Joehmk61.64 kg BMI Zmfbggnnrx07.92 kg/m2 BSA Calculated1.83 Tobacco Usea) Yes PHQ-2 [...] AND affect, Normal judgment. Results/Data Basic Metabolic Wbbds12Rcn5845 08:34AMRaber Jamari Test NameResultFlagReference Glucose, Uwsrl962 mg/dLH74 - 99 Sodium, Ellws708 mmol/LL136 - 145 POTASSIUM3.5 mmol/L3.5 - 5.3 Chloride, Lmsyy261 mmol/L98 - 107 Bicarbonate, Serum24 mmol/L21 - 32 Anion Gap, Serum14 mmol/L10 - 20 Blood Urea Nitrogen, Serum12 mg/dL6 - 23 CREATININE0.58 mg/dLSee Below Reference (more content not included)... Normal [facility] Tobacco Screening.on 022 Adult depression screening assessment Yes [facility] Work Phone: Tobacco use status CPHS a) Yes [facility] Work Phone: Office Visit ([facility] e)on 02-22-2022 Follow-up visit Diagnoses/Problems Hyperglycemia due to diabetes mellitus (250.02) (E11.65) Anxiety and depression (300.00,311) (F41.9,F32.A) Orders Anxiety and depression Follow-up visit in 3 months Outpatient Follow-up Status: Hold For - Scheduling Requested for: [id number] Basic Metabolic Panel; Status:Active; Requested for:23Boe1725; Anxiety and depression, Hyperglycemia due to diabetes mellitus Hemoglobin A1C; Status:Active; Requested for:87Cpq2587; Health Maintenance Renew: Albuterol Sulfate HFA 108 [...] CapsuleSocHx: Current smoker Benadryl 25 MG TABS [place] Carbonate 300 MG Oral Capsule Vitals Vital Signs Recorded: 82Wru5858 08:55AM Heart Rate73 Swgimukqohy20 Tbogavwz375 Yiykeapxg01 Height5 ft 2 in Zgdtzw080 lb BMI Dtdttmdtgd34.56 kg/m2 BSA Calculated1.82 Tobacco Usea) Yes Patient encouraged to stop using tobacco productsYes Falls Screening (Age 18+)a) No falls within the last year O2 Upeaohulxy25 Physical Exam General: Alert and oriented, No [...] (Author) Normal [facility]works Office Visit (Family Junior grijalva)on 01-04-2022 Follow-up [...] Vital Signs Recorded: 04Jan2022 01:47PM Heart Rate80 Uzmifdan739 Mdxvvvywb70 Height5 ft 2 in Debxxw055 lb 15.70 oz BMI Rixaxstrlu62.91 kg/m2 BSA Calculated1.78 Tobacco Usea) Yes Patient [...] Jan 04 2022 2:03PM EST (Author) Normal [facility] Tobacco Screening.on 022 Fall risk assessment a) No falls within the last year [facility] Work Phone: Tobacco use status [facility] a) Yes [facility] Work Phone: Tobacco Screening. Yes [facility] Work Phone: LMPon 12-25-2021 Last menstrual period start date [id number] [facility] and [address] [place], [place] [address] Work Phone: MOTION PICTURE COMMENTATOR - Office Visiton 12-07 MOTION PICTURE COMMENTATOR - Office Visit Provider Marivel mark Patient [...] AND DRINK ONCE. Vitals Vital Signs Recorded: 32Akv4148 08:36AM Nxogcsdv529 Mrnupwwnv11 Height5 ft 2 in Dmmnlm387 lb 0.08 oz BMI Solspitokt02.36 kg/m2 BSA Calculated1.77 MEC10Dyd6235 Physical Exam Constitutional: Healthy-appearing in no physical distress. Head and Face: No obvious lesions. Neck: Supple with good range of motion. External genitalia revealed no lesions the vagina was well estrogenized the cervix was nonfriabl there was a thick white ezy-xjgy-sqqxfvft discharge Musculoskeletal: Good mobility of her extremities. Psychiatric: Appropriately oriented. Wet mount was negative for trichomoniasis Signatures Electronically signed by : Genoveva Sutton DO; Dec 25 2021 8:50AM EST (Author) Normal [facility] GC + Chlamydia By Amplified Detectionon 12-17-2021 C. trachomatis rRNA SUMIT+probe Ql (Unsp spec) Negative Negative [facility] and [address] [place] Work Phone: Comment on above: The APTIMA Combo 2 a ssay is FDA-approved for Chlamydia trachomatis and Neisseria gonorrhoeae testing on female endocervical and vaginal swabs, ThinPrep liquid pap samples, male urine samples and urethral swabs. Performance characteristics for Chlamydia trachomatis and Neisseria gonorrhoeae testing on specific zxx-DHN-wczuqwfy sample types (female urine samples) have been validated by [facility]. This laboratory is certified by CLIA to perform high complexity testing. Samples from all other sites are not validated for this method. N. gonorrhoeae rRNA SUMIT+probe Ql (Unsp spec) Negative Negative [facility] and [address] [employer] Work Phone: Comment on above: SOURCE: Urine The AP KATIA Combo 2 assay is FDA-approved for Chlamydia trachomatis and Neisseria gonorrhoeae testing on female endocervical and vaginal swabs, ThinPrep liquid pap samples, male urine samples and urethral swabs. Performance characteristics for Chlamydia trachomatis and Neisseria gonorrhoeae testing on specific vkp-PNA-wrzbenfn sample types (female urine samples) have been validated by [facility]. This laboratory is certified by CLIA to perform high complexity testing. Samples from all other sites are not validated for this method. LMPon 12-17-2021 Last menstrual period start date 15Dec2021 [facility] and [address] [employer] Work Phone: MOTION PICTURE COMMENTATOR - Office Visiton 12-07 MOTION PICTURE COMMENTATOR - Office Visit Diagnoses/Problems Assessed Chlamydia infection (079.98) (A74.9) Screening for STD (sexually transmitted disease) (V74.5) (Z11.3) Orders GC + Chlamydia By Amplified Detection; Status:In Progress - Specimen/Data Collected,Retrospective Authorization; Done: [id number] Provider Impressions Patient is a 26-year-old here [...] AND DRINK ONCE. Vitals Vital Signs Recorded: 17Dec2021 09:02AM Zfljkqoi644 Vfocjxbpp07 Height5 ft 2 in Wxojlk810 lb 7.14 oz BMI Mioflaaygl79.44 kg/m2 BSA Calculated1.77 LYT90Sch5489 Physical Exam Constitutional: Healthy-appearing in no physical [...] Bacteria identified Aer cx Nom (Genital specimen) [facility] [address] [employer] Work Phone: GC + Chlamydia By Amplified Detectionon 11-26-2021 C. trachomatis rRNA SUMIT+probe Ql (Unsp spec) Positive Abnormal Negative [facility] [employer] Work Phone: Comment on above: The APTIMA Combo 2 a ssay is FDA-approved for Chlamydia trachomatis and Neisseria gonorrhoeae testing on female endocervical and vaginal swabs, ThinPrep liquid pap samples, male urine samples and urethral swabs. Performance characteristics for Chlamydia trachomatis and Neisseria gonorrhoeae testing on specific lsb-PHH-fhdlzodt sample types (female urine samples) have been validated by [facility]. This laboratory is certified by CLIA to perform high complexity testing. Samples from all other sites are not validated for this method. N. gonorrhoeae rRNA SUMIT+probe Ql (Unsp spec) Negative Negative [facility] and [employer] Work Phone: Comment on above: SOURCE: Urine The AP KATIA Combo 2 assay is FDA-approved for Chlamydia trachomatis and Neisseria gonorrhoeae testing on female endocervical and vaginal swabs, ThinPrep liquid pap samples, male urine samples and urethral swabs. Performance characteristics for Chlamydia trachomatis and Neisseria gonorrhoeae testing on specific krt-GYB-nsjnfoat sample types (female urine samples) have been validated by [facility]. This laboratory is certified by CLIA to perform high complexity testing. Samples from all other sites are not validated for this method. HIV 1/2 ANTIGEN/ANTIBODY SCR EEN WITH REFLEX TO CONFIRMATIONon 11-26-2021 HIV 1+2 Ab Qn (S) Non-Reactive See Below [facility] and [address] [employer] Work Phone: Comment on above: SOURCE: Reference Ra nge: NONREACTIVE HIV Ag/Ab screen is performed using the Siemens [employer] HIV Ag/Ab Combo assay which detects the presence of HIV p24 antigen as well as antibodies to HIV-1 (Group M and O) and HIV-2..No laboratory evidence of HIV infection. If acute HIV infection is suspected, consider testing for HIV RNA by PCR (viral load). HSV TYPE I / II, IGMon 11-26 HSV 1+2 IgM IA Qn (S) 0.78 {IV} <=0.89 [facility] and [employer] Work Phone: Comment on above: INTERPRETIVE INFORMA [...] for more than 12 months post-infection.Performed By: [facility] [place] [id number] Director: Carlene Gore MD LMPon 11-26-2021 Last menstrual period start date 13Nov2021 [employer] [facility] [employer] Phone: Laboratory - Cytologyon 11-08 Cytology report Cyto stain.thin prep Doc (Cvx/Vag) [employer] Work Phone: No Panel Informationon 11-26 >8.0 Abnormal [facility] and [employer] Work Phone: Comment on above: POTENTIAL FOR CROSS- REACTIVITY BETWEENHSV I AND HSV II EXISTS.REF VALUESNEGATIVE <0.9EQUIVOCAL >=0.90 <=1.10POSITIVE >1.10 5.0 {INDEX} Abnormal [facility] and [employer] Phone: Comment on above: REF VALUESNEGATIVE < 0.9EQUIVOCAL >=0.90 <=1.10POSITIVE >1.10 MOTION PICTURE COMMENTATOR - Office Visiton 06 MOTION PICTURE COMMENTATOR - Office Visit Diagnoses/Problems Assessed Screening for cervical cancer (V76.2) (Z12.4) Colitis, trichomonas (007.3) (A07.8) Infection due to Tritrichomonas species (136.8) (A07.8) Orders HIV 1/2 ANTIGEN/ANTIBODY SCREEN WITH REFLEX TO CONFIRMATION; Status:Active; Requested for:26Nov2021; HSV IgG1 And IgG2 Ab; Status:Active; Requested for:26Nov2021; HSV TYPE I / II, IGM; Status:Active; Requested for:26Nov2021; SYPHILIS SCREENING WITH REFLEX; Status:Active; Requested for:26Nov2021; PAP MECHANICAL DEVELOPMENT ENGINEER, Cytology; Status:In Progress - Specimen/Data Collected,Retrospective Authorization; Done: 26Nov2021 Last Menstrual Period (LMP): : 11/13/2021 PAP - Site : CERVICAL Cytology Order : ThinPrep PAP, Screening, HPV Reflex - Include Genotyping Provider Impressions Patient is a 26-year-old who comes in for routine MECHANICAL DEVELOPMENT ENGINEER exam. Pap smear was done. Currently declines contraception since she is not sexually active. Trichomoniasis found on exam. Will treat with Flagyl and will do a full STD panel. Follow-up in 3 weeks for test of cure. Also informed her that her partner needs to be treated. Chief Complaint Patient here today for yearly. Her last pap was 3-4 years ago in [place] that the patient states was normal. She has no concerns. She does not do a self breast exam. LMP:11/13/2021 History of Present IllnessPatient is a 26-year-old who comes in for routine MECHANICAL DEVELOPMENT ENGINEER exam. Patient reports she has not been [...] Weekly Vitals Vital Signs Recorded: 26Nov2021 09:02AM Txggbslx117 Gbtkfrkmz97 Height5 ft 2 in Unxhle633 lb BMI Olfomppcna02.09 kg/m2 BSA Calculated1.78 DNF79Sxj3539 Physical Exam Constitutional: Healthy-appearing woman in no distress. Head and Face: No obvious lesions. Neck: Supple without adenopathy. Cardiovascular: Regular rate and rhythm. Pulmonary: Clear to auscultation. Chest: Breasts were symmetrical with diffuse fibrocystic changes but no discrete masses discharge or retraction. Abdomen: Soft nontender no masses. External genitalia was slightly erythematous. The vagina was well estr (more content not included)... Normal [facility] SYPHILIS SCREENING WITH REFL EXon 11-26-2021 T. pallidum IgG+IgM IA Ql (S) Non-Reactive See Below [facility] and [facility] [employer] Work Phone: Comment on above: Reference Range: NON REACTIVENo significant level of Treponema pallidum antibody detected. Repeat testing in 2 to 4 weeks may be considered if early infection or incubating syphilis infection is suspected. Hemoglobin A1Con 11-12-2021 Glucose [Mass/Vol] 266 mg/dL [facility] Work Phone: HbA1c (Bld) [Mass fraction] 10.9 % Abnormal [facility] Work Phone: Comment on above: Diagnosis of Diabete s-Adults Non-Diabetic: < or = 5.6% Increased risk for developing diabetes: 5.7-6.4% Diagnostic of diabetes: > or = 6.5%. Monitoring of Diabetes Age (y) Therapeutic Goal (%) Adults: >18 <7.0 Pediatrics: 13-18 <7.5 7-12 <8.0 0- 6 7.5-8.5 [place] [employer]. Diabetes Care 33(S1), Jun 2009. Laboratory - Chemistry and C hemistry - challengeon 11-12-2021 Anion gap [Moles/Vol] 13 mmol/L 10 - 20 [facility] Work Phone: Calcium [Mass/Vol] 9.4 mg/dL 8.6 - 10.3 [facility] Work Phone: Chloride [Moles/Vol] 105 mmol/L 98 - 107 [facility] Work Phone: CO2 [Moles/Vol] 23 mmol/L 21 - 32 [facility] Work Phone: Creatinine [Mass/Vol] 0.51 mg/dL See Below [facility] Work Phone: Comment on above: Reference Range: 0.5 0 - 1.05 Glucose [Mass/Vol] 96 mg/dL 74 - 99 [facility] Work Phone: Potassium [Moles/Vol] 3.8 mmol/L 3.5 - 5.3 [facility] Work Phone: Sodium [Moles/Vol] 137 mmol/L 136 - 145 [facility] Work Phone: Urea nitrogen [Mass/Vol] 11 mg/dL 6 - 23 [facility] Work Phone: No Panel Informationon 11-12 >90 >90 [facility] Work Phone: Comment on above: CALCULATIONS OF ASCENCION MATED GFR ARE PERFORMED USING THE 2020 CKD-EPI STUDY REFIT EQUATION WITHOUT THE RACE VARIABLE FOR THE IDMS-TRACEABLE CREATININE METHODS.https://jasn.asnjournals.org/content// N.1531617540 Office Visit ([facility] e)on 06-06-2022 Follow-up visit Diagnoses/Problems Seizure-like activity (780.39) (R56.9) [...] access program for 3 months 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 coordinator working on SSI/SSD due to mental illness has been suicidal recently but is improving lives alone dtr lives grandparents in [place] became homeless August 2021 activity walks and [...] Vital Signs Recorded: 12Nov2021 10:17AM Heart Rate95 Cgpridgt738 Xrqwnibwf43 Flovph064.5 cm Cgoemz03.74 kg BMI Oizalwpygj24.95 kg/m2 BSA Calculated1.82 Tobacco Usea) Yes PHQ-2 [...] Nov 12 2021 10:47AM EST (Author) Normal [facility] Tobacco Screening.on Adult depression screening assessment Yes [facility] Work Phone: Tobacco use status CPHS a) Yes [facility] Work Phone: Auth for Release of Medical Recordson 08-07-2021 Auth for Release of Medical Records [id number] D:127 Normal [facility] Lab Reportson 08-06-2021 Lab Reports [id number]#[id number] D:127 Normal [facility] Medicine Office/Clini c Noteon 08-05-2021 Family Medicine Office/Clinic Note Chief Complaint 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 SHe is DM2, asthma. Sees Светлана for psych. 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 Here today requesting [...] trying to wean herself from use. Follows [facility] - feels depression and anxiety has been well controlled with current medication regimen -buspirone and fluoxetine. Also reports history of borderline personality disorder. 2019 pap smear per patient. MECHANICAL DEVELOPMENT ENGINEER in [place], no longer follows them. OARRS reviewed and [...] and can add years to your life. 9-470-VKOB-NOW or www.smokefree.gov provide access to helpful resources [...] disorder) (F41.1: (more content not included)... Normal [facility] Comment on above: Result Comment: Elec tronically Signed By: Katiana BOYD CNP\\.cora\\Date and Time Signed: 08/05/21 08:57 EST Hemoglobin A1Con 08-05-2021 Glucose [Mass/Vol] 235 mg/dL Normal [facility] Comment on above: Result Comment: The ADA and AACC recommend providing the estimated average glucose result to permit better patient understanding of their HBA1c result. Performed By: #### C DP, CP, TSHX #### [facility] [address] [place], [place] [id number] Cs Associate: Milly Truong MD #### LIPR, GLYHGB, URNMAB #### [address] [id number] Cs Associate: Brice Jovel MD HbA1c (Bld) [Mass fraction] 9.8 % High 4.0-6.0 [facility] Comment on above: Performed By: #### C DP, CP, TSHX #### [facility] [address] [place], [place] [id number] Cs Associate: Milly Truong MD #### LIPR, GLYHGB, URNMAB #### [address] [phone] Cs Associate: Brice Jovel MD Lipid Profileon 08-04-2021 Cholesterol [Mass/Vol] 252 mg/dL High <200 [facility] Comment on above: Result Comment: Cholesterol Guidelines: <200 Desirable 200-240 Borderline >240 Undesirable Performed By: #### C DP, CP, TSHX #### [facility] [address] [place], [place] [id number] Cs Associate: Milly Truong MD #### LIPR, GLYHGB, URNMAB #### [address] [phone] Cs Associate: Brice Jovel MD Cholesterol in HDL [Mass/Vol] 43 mg/dL Normal >40 [facility] Comment on above: Result Comment: HDL Guidelines: <40 Undesirable 40-59 Borderline >59 Desirable Performed By: #### C DP, CP, TSHX #### [facility] [address] [place], [place] [id number] Cs Associate: Milly Truong MD #### LIPR, GLYHGB, URNMAB #### [facility] [place], [place] [phone] Cs Associate: Brice Jovel MD Cholesterol in LDL [Mass/Vol] 180 mg/dL High 0-130 [facility] Comment on above: Result Comment: LDL Guidelines: <100 Desirable 100-129 Near to/above Desirable 130-159 Borderline >159 Undesirable Direct (measured) LDL and calculated LDL are not interchangeable tests. Performed By: #### C JALEEL BELL, TSHX #### [facility] [address] [place] [phone] Cs Associate: Milly Truong MD #### LIPRebecca, GLYHGB, URNMAB #### [facility] [place], [place] [phone] Cs Associate: Brice Jovel MD Cholesterol.total/Cho lesterol in HDL [Mass ratio] 5.9 {ratio} High <5 [facility] Comment on above: Performed By: #### C JALEEL BELL, TSHX #### [facility] [address] [place], [place] [phone] Cs Associate: Milly Truong MD #### LIPRebecca, GLYHGB, URNMAB #### [facility] [place], [place] [phone] Cs Associate: Brice Jovel MD Triglyceride [Mass/Vol] 144 mg/dL Normal <150 [facility] Comment on above: Result Comment: Triglyceride Guidelines: <150 Desirable 150-199 Borderline 200-499 High >499 Very high Based on AHA Guidelines for fasting triglyceride, March 2012. Performed By: #### C JALEEL BELL, TSHX #### [facility] [address] [place] [address] Cs Associate: Milly Truong MD #### LIPR, GLYHGB, URNMAB #### [address] [phone] Cs Associate: Brice Jovel MD Microalb.,Random Uron 2021 Creatinine [Mass/Vol] 194.3 mg/dL Normal 28.0-217.0 [facility] Comment on above: Performed By: #### C DP, CP, TSHX #### [facility] [address] [place] [address] Cs Associate: Milly Truong MD #### LIPR, GLYHGB, URNMAB #### [place] [id number] Cs Associate: Brice Jovel MD Microalb/Creat Ratio 20 mcg/mg creat Normal <25 [facility] Comment on above: Performed By: #### C DP, CP, TSHX #### [facility] [address] [id number] ( Cs Associate: Milly Truong MD #### LIPRebecca, GLYHGB, URNMAB #### [place] [id number] Cs Associate: Brice Jovel MD Microalbumin conc. 38 mg/L High <21 [facility] Comment on above: Performed By: #### C DP, CP, TSHX #### [facility] [address] [place] [address] Cs Associate: Milly Truong MD #### LIPR, GLYHGB, URNMAB #### [place] [id number] Cs Associate: Brice Jovel MD CBC with Diffon 08-03-2021 Abs. Basophil 0.00 k/uL Normal 0.0-0.2 [facility] Comment on above: Performed By: #### C DP, CP, TSHX #### [facility] [address] [place] [address] Cs Associate: Milly Truong MD #### LIPR, GLYHGB, URNMAB #### [address] [id number] Cs Associate: Brice Jovel MD Abs.Neutrophil (Seg) 5.40 k/uL Normal 2.5-7.0 [facility] Comment on above: Performed By: #### C DP, CP, TSHX #### [facility] [address] [place] [address] Cs Associate: Milly Truong MD #### LIPR, GLYHGB, URNMAB #### [address] [id number] Cs Associate: Brice Jovel MD Auto Diff Performed YES Normal [facility] Comment on above: Performed By: #### C DP, CP, TSHX #### [facility] [address] [place] [address] Cs Associate: Milly Truong MD #### LIPR, GLYHGB, URNMAB #### [address] [id number] Cs Associate: Brice Jovel MD Basophils/100 WBC (Bld) 0 % Normal 0-2 [facility] Comment on above: Performed By: #### C DP, CP, TSHX #### [facility] [address] [place] [address] Cs Associate: Milly Truong MD #### LIPR, GLYHGB, URNMAB #### [address] [id number] Cs Associate: Brice Jovel MD Eosinophils (Bld) [#/Vol] 0.20 10*3/uL Normal 0.0-0.4 [facility] Comment on above: Performed By: #### C DP, CP, TSHX #### [facility] [address] [place], [place] [id number] Cs Associate: Milly Truong MD #### LIPR, GLYHGB, URNMAB #### [address] [place], [place] [phone] Cs Associate: Brice Jovel MD Eosinophils/100 WBC (Bld) 2 % Normal 0-5 [facility] Comment on above: Performed By: #### C DP, CP, TSHX #### [facility] [address] [place], [place] [phone] Cs Associate: Milly Truong MD #### LIPR, GLYHGB, URNMAB #### [address] [phone] Cs Associate: Brice Jovel MD Erythrocyte distribution width (RBC) [Ratio] 12.2 % Normal 12.1-15.2 [facility] Comment on above: Performed By: #### C DP, CP, TSHX #### [facility] [address] [place] [address] Cs Associate: Milly Truong MD #### LIPR, GLYHGB, URNMAB #### [address] [id number] Cs Associate: Brice Jovel MD Hematocrit (Bld) [Volume fraction] 45.6 % Normal 36-46 [facility] Comment on above: Performed By: #### C DP, CP, TSHX #### [facility] [address] [place] [address] Cs Associate: Milly Truong MD #### LIPR, GLYHGB, URNMAB #### [address] [id number] Cs Associate: Brice Jovel MD Hemoglobin (Bld) [Mass/Vol] 15.9 g/dL Normal 12.0-16.0 [facility] Comment on above: Performed By: #### C DP, CP, TSHX #### [facility] [address] [place], [place] [id number] Cs Associate: Milly Truong MD #### LIPR, GLYHGB, URNMAB #### [address] [id number] Cs Associate: Brice Jovel MD Lymphocytes (Bld) [#/Vol] 2.50 10*3/uL Normal 1.0-4.8 [facility] Comment on above: Performed By: #### C JALEEL BELL, TSHX #### [facility] [address] [phone] Cs Associate: Milly Truong MD #### LIPRebecca, GLYHGB, URNMAB #### [address] [id number] Cs Associate: Brice Jovel MD Lymphocytes/100 WBC (Bld) 30 % Normal 15-40 [facility] Comment on above: Performed By: #### C JALEEL BELL, TSHX #### [facility] [address] [phone] Cs Associate: Milly Truong MD #### LIPRebecca, GLYHGB, URNMAB #### [address] [id number] Cs Associate: Brice Jovel MD MCH (RBC) [Entitic mass] 29.1 pg Normal 26-34 [facility] Comment on above: Performed By: #### C RAY, CP, TSHX #### [facility] [address] [phone] Cs Associate: Milly Truong MD #### LIPR, GLYHGB, URNMAB #### [address] [id number] Cs Associate: Brice Jovel MD MCHC (RBC) [Mass/Vol] 34.8 g/dL Normal 31-37 [facility] Comment on above: Performed By: #### C DP, JALEEL, TSHX #### [facility] [address] [place], [place] [phone] Cs Associate: Mlily Truong MD #### LIPR, GLYHGB, URNMAB #### [address] [id number] Cs Associate: Brice Jovel MD MCV (RBC) [Entitic vol] 83.8 fL Normal 80-100 [facility] Comment on above: Performed By: #### C DP, CP, TSHX #### [facility] [address] [phone] Cs Associate: Milly Truong MD #### LIPR, GLYHGB, URNMAB #### [address] [phone] Cs Associate: Brice Jovel MD Monocytes (Bld) [#/Vol] 0.20 10*3/uL Normal 0.0-1.0 [facility] Comment on above: Performed By: #### C DP, CP, TSHX #### [facility] [address] [phone] Cs Associate: Milly Truong MD #### LIPR, GLYHGB, URNMAB #### [address] [id number] Cs Associate: Brice Jovel MD Monocytes/100 WBC (Bld) 2 % Low 4-8 [facility] Comment on above: Performed By: #### C DP, CP, TSHX #### [facility] [address] [place], [place] [phone] Cs Associate: Milly Truong MD #### LIPR, GLYHGB, URNMAB #### [facility] [address] [place] [address] Cs Associate: Brice Jovel MD Neutrophil (Seg) 66 % Normal 47-75 [facility] Comment on above: Performed By: #### C DP, CP, TSHX #### [facility] [address] [place] [address] Cs Associate: Milly Truong MD #### LIPR, GLYHGB, URNMAB #### [address] [address] Cs Associate: Brice Jovel MD Platelets (Bld) [#/Vol] 306 10*3/uL Normal 140-450 [facility] Comment on above: Performed By: #### C DP, CP, TSHX #### [facility] [address] [place] [address] Cs Associate: Milly Truong MD #### LIPR, GLYHGB, URNMAB #### [address] [address] Cs Associate: Brice Jovel MD RBC (Bld) [#/Vol] 5.45 10*6/uL High 4.0-5.2 [facility] Comment on above: Performed By: #### C DP, CP, TSHX #### [facility] [address] [place] [address] Cs Associate: Milly Truong MD #### LIPR, GLYHGB, URNMAB #### [address] [address] Cs Associate: Brice Jovel MD WBC (Bld) [#/Vol] 8.3 10*3/uL Normal 3.5-11.0 [facility] Comment on above: Performed By: #### C DP, CP, TSHX #### [facility] [address] [phone] Cs Associate: Milly Truong MD #### LIPR, GLYHGB, URNMAB #### [facility] [address] [place], [place] [phone] Cs Associate: Brice Jovel MD Comp Metabolic Profon 2021 (cont.) Normal [facility] Comment on above: Result Comment: Aver age GFR for 20-29 years old: 116 mL/min/1.73sq m Chronic Kidney Disease: <60 mL/min/1.73sq m Kidney failure: <15 mL/min/1.73sq m eGFR calculated using average adult body mass. Additional eGFR calculator available at: http://www.[employer]/multiple_crcl_2011.htm Performed By: #### C DP, CP, TSHX #### [facility] [address] [place] [address] Cs Associate: Milly Truong MD #### LIPR, GLYHGB, URNMAB #### [facility] [address] [place], [place] [phone] Cs Associate: Brice Jovel MD Albumin [Mass/Vol] 4.3 g/dL Normal 3.5-5.2 [facility] Comment on above: Performed By: #### C DP, CP, TSHX #### [facility] [address] [place], [place] [phone] Cs Associate: Milly Truong MD #### LIPR, GLYHGB, URNMAB #### [facility] [address] [place], [place] [phone] Cs Associate: Brice Jovel MD Alkaline Phos 106 U/L High 35-104 [facility] Comment on above: Performed By: #### C DP, CP, TSHX #### [facility] [address] [place] [address] Cs Associate: Milly Truong MD #### LIPR, GLYHGB, URNMAB #### [facility] [address] [place] [address] Cs Associate: Brice Jovel MD ALT [Catalytic activity/Vol] 19 U/L Normal 5-33 [facility] Comment on above: Performed By: #### C DP, CP, TSHX #### [facility] [address] [place], [place] [phone] Cs Associate: Milly Truong MD #### LIPR, GLYHGB, URNMAB #### [address] [place], [place] [phone] Cs Associate: Brice Jovel MD Anion gap [Moles/Vol] 13 mmol/L Normal 9-17 [facility] Comment on above: Performed By: #### C DP, CP, TSHX #### [facility] [address] [place], [place] [phone] Cs Associate: Milly Truong MD #### LIPR, GLYHGB, URNMAB #### [address] [place], [place] [phone] Cs Associate: Brice Jovel MD AST [Catalytic activity/Vol] 12 U/L Normal <32 [facility] Comment on above: Performed By: #### C DP, CP, TSHX #### [facility] [address] [place], [place] [phone] Cs Associate: Milly Truong MD #### LIPR, GLYHGB, URNMAB #### [address] [place], [place] [phone] Cs Associate: Brice Jovel MD Bilirubin [Mass/Vol] 0.37 mg/dL Normal 0.30-1.20 [facility] Comment on above: Performed By: #### C DP, CP, TSHX #### [facility] [address] [place], [place] [phone] Cs Associate: Milly Truong MD #### LIPR, GLYHGB, URNMAB #### [address] [place], [place] [phone] Cs Associate: Brice Jovel MD BUN/CRE Ratio 17 Normal 9-20 [facility] Comment on above: Performed By: #### C DP, CP, TSHX #### [facility] [address] [phone] Cs Associate: Milly Truong MD #### LIPR, GLYHGB, URNMAB #### [address] [phone] Cs Associate: Brice Jovel MD Calcium [Mass/Vol] 9.4 mg/dL Normal 8.6-10.4 [facility] Comment on above: Performed By: #### C DP, CP, TSHX #### [facility] [address] [phone] Cs Associate: Milly Truong MD #### LIPR, GLYHGB, URNMAB #### [address] [phone] Cs Associate: Brice Jovel MD Chloride [Moles/Vol] 94 mmol/L Low 98-107 [facility] Comment on above: Performed By: #### C DP, CP, TSHX #### [facility] [address] [phone] Cs Associate: Milly Truong MD #### LIPR, GLYHGB, URNMAB #### [address] [id number] Cs Associate: Brice Jovel MD CO2 [Moles/Vol] 26 mmol/L Normal 20-31 [facility] Comment on above: Performed By: #### C DP, CP, TSHX #### [facility] [address] [place], [place] [id number] Cs Associate: Milly Truong MD #### LIPR, GLYHGB, URNMAB #### [address] [phone] Cs Associate: Brice Jovel MD Creatinine [Mass/Vol] 0.52 mg/dL Normal 0.50-0.90 [facility] Comment on above: Performed By: #### C DP, CP, TSHX #### [facility] [address] [place], [place] [phone] Cs Associate: Milly Truong MD #### LIPR, GLYHGB, URNMAB #### [address] [phone] Cs Associate: Brice Jovel MD GFR, Amer >60 Normal >60 [facility] Comment on above: Performed By: #### C DP, CP, TSHX #### [facility] [address] [place] [address] Cs Associate: Milly Truong MD #### LIPR, GLYHGB, URNMAB #### [address] [phone] Cs Associate: Brice Jovel MD GFR,non Amer >60 Normal >60 [facility] Comment on above: Performed By: #### C DP, CP, TSHX #### [facility] [address] [phone] Cs Associate: Milly Truong MD #### LIPR, GLYHGB, URNMAB #### [address] [phone] Cs Associate: Brice Jovel MD Glucose [Mass/Vol] 291 mg/dL High 70-99 [facility] Comment on above: Performed By: #### C DP, CP, TSHX #### [facility] [address] [place], [place] [id number] Cs Associate: Milly Truong MD #### LIPR, GLYHGB, URNMAB #### [address] [place], [place] [phone] Cs Associate: Brice Jovel MD Potassium [Moles/Vol] 3.7 mmol/L Normal 3.7-5.3 [facility] Comment on above: Performed By: #### C DP, CP, TSHX #### [facility] [address] [place], [place] [phone] Cs Associate: Milly Truong MD #### LIPR, GLYHGB, URNMAB #### [address] [phone] Cs Associate: Brice Jovel MD Protein [Mass/Vol] 8.0 g/dL Normal 6.4-8.3 [facility] Comment on above: Performed By: #### C DP, CP, TSHX #### [facility] [address] [place], [place] [phone] Cs Associate: Milly Truong MD #### LIPRebecca, GLYHGB, URNMAB #### [address] [phone] Cs Associate: Brice Jovel MD Sodium [Moles/Vol] 133 mmol/L Low 135-144 [facility] Comment on above: Performed By: #### C DP, CP, TSHX #### [facility] [address] [place], [place] [phone] Cs Associate: Milly Truong MD #### LIPR, GLYHGB, URNMAB #### [address] [phone] Cs Associate: Brice Jovel MD Urea nitrogen [Mass/Vol] 9 mg/dL Normal 6-20 [facility] Comment on above: Performed By: #### C DP, CP, TSHX #### [facility] [address] [place] [address] Cs Associate: Milly Truong MD #### LIPR, GLYHGB, URNMAB #### [facility] [address] [place], [place] [phone] Cs Associate: Brice Jovel MD TSH w/reflex to FT4on 2021 TSH Qn 0.65 m[IU]/L Normal 0.30-5.00 [facility] Comment on above: Performed By: #### C DP, CP, TSHX #### [facility] [address] [place] [address] Cs Associate: Milly Truong MD #### LIPR, GLYHGB, URNMAB #### [facility] [address] [place] [address] Cs Associate: Brice Jovel MD Patient Educationon 08-02-19 Patient [...] plan? Your health care provider or certified histologic technician can help you make a plan for [...] ? Your health care provider or certified histologic technician can help you make a plan for [...] Document Reviewe (more content not included)... Normal [facility] Blood Pressure Cuff Sizeon 0 01-04-2021 Fall risk assessment a) No falls within the last year [facility] Work Phone: Tobacco use status [facility] a) Yes [facility] Work Phone: Blood Pressure Cuff Size Adult [facility] Work Phone: Blood Pressure Cuff Size Yes [facility] Work Phone: Blood Pressure Cuff Sizeon 0 11-02-2020 Fall risk assessment a) No falls within the last year [facility] Work Phone: Tobacco use status [facility] a) Yes [facility] Work Phone: Blood Pressure Cuff Size Adult [facility] Work Phone: Blood Pressure Cuff Size a) Yes [facility] Work Phone: Acetaminophen Level, Serumon 10-23-2020 Acetaminophen [Mass/Vol] ug/mL See Below [facility] Work Phone: Comment on above: Reference Range: 10. 0 - 30.0 Acetylsalicylic Acid Level, Serumon 10-23-2020 Salicylates [Mass/Vol] mg/dL 4 - 20 [facility] Work Phone: Alcohol, Serumon 10-23-2020 Ethanol [Mass/Vol] mg/dL [facility] Work Phone: Comment on above: FOR MEDICAL USE ONLY . .REF VALUES <10 Complete Blood Count + Diffe rentialon 10-23-2020 Basophils/100 WBC (Bld) 0.8 % 0.0 - 2.0 [facility] Work Phone: Erythrocyte distribution width (RBC) [Ratio] 12.7 % See Below [facility] Work Phone: Comment on above: Reference Range: 11. 5 - 14.5 Hematocrit (Bld) [Volume fraction] 44.6 % See Below [facility] Work Phone: Comment on above: Reference Range: 36. 0 - 46.0 Hemoglobin (Bld) [Mass/Vol] 15.2 g/dL See Below [facility] Work Phone: Comment on above: Reference Range: 12. 0 - 16.0 Lymphocytes/100 WBC (Bld) 23.6 % See Below [facility] Work Phone: Comment on above: Reference Range: 13. 0 - 44.0 MCHC (RBC) [Mass/Vol] 34.0 g/dL See Below [facility] Work Phone: Comment on above: Reference Range: 32. 0 - 36.0 MCV (RBC) [Entitic vol] 85 fL 80 - 100 [facility] Work Phone: Monocytes/100 WBC (Bld) 4.5 % 2.0 - 10.0 [facility] Work Phone: Neutrophils/100 WBC (Bld) 70.1 % See Below [facility] Work Phone: Comment on above: Reference Range: 40. 0 - 80.0 Platelets (Bld) [#/Vol] 245 10*3/uL 150 - 450 [facility] Work Phone: RBC (Bld) [#/Vol] 5.24 {x10E12/L} above high threshold See Below [facility] Work Phone: Comment on above: Reference Range: 4.0 0 - 5.20 WBC (Bld) [#/Vol] 9.7 10*3/uL 4.4 - 11.3 [facility] Work Phone: Complete Blood Count + Differential 0.10 {x10E9/L} See Below [facility] Work Phone: Comment on above: Reference Range: 0.0 0 - 0.10 Reference Range: 0.0 0 - 0.70 Complete Blood Count + Differential 0.40 {x10E9/L} See Below [facility] Work Phone: Comment on above: Reference Range: 0.1 0 - 1.00 Complete Blood Count + Differential 2.30 {x10E9/L} See Below [facility] Work Phone: Comment on above: Reference Range: 1.2 0 - 4.80 Complete Blood Count + Differential 6.80 {x10E9/L} See Below [facility] Work Phone: Comment on above: Reference Range: 1.2 0 - 7.70 Percent differential counts (%) should be interpreted in the context of the absolute cell counts (cells/L). Complete Blood Count + Differential 1.0 % 0.0 - 6.0 [facility] Work Phone: Coronavirus 2019 RNA by PCR, Symptomaticon 10-23-2020 Coronavirus 2019 RNA by PCR, Symptomatic Not detected Normal See Below [facility] Work Phone: Comment on above: SOURCE: Nasal, Nasop haryngealReference Range: Not Detected.This test has received FDA Emergency Use Authorization (EUA) and has been verified by [facility]. This test is only authorized for the duration of time that circumstances exist to justify the authorization of the emergency use of in vitro diagnostic tests for the detection of SARS-CoV-2 virus and/or diagnosis of COVID-19 infection under section 564(b)(1) of the Act, 21 U.S.C. 360bbb-3(b)(1), unless the authorization is terminated or revoked sooner. [facility] is certified under CLIA-88 as qualified to perform high complexity testing. Testing is performed in the [facility] laboratory located at [address] [place] [address].SARS-CoV-2/Flu/RSV Multiplex Test: Fact sheet for providers: https://www.fda.gov/media/781198/downloadFact sheet for patients: https://www.fda.gov/media/664506/download Laboratory - Chemistry and C hemistry - challengeon 10-23-2020 Albumin BCP dye [Mass/Vol] 4.1 g/dL 3.4 - 5.0 [facility] Work Phone: ALP [Catalytic activity/Vol] 107 U/L 33 - 110 [facility] Work Phone: ALT With P-5'-P [Catalytic activity/Vol] 26 U/L 7 - 45 [facility] Work Phone: Comment on above: Patients treated wit h Sulfasalazine may generate falsely decreased results for ALT. Anion gap [Moles/Vol] 13 mmol/L 10 - 20 [facility] Work Phone: AST With P-5'-P [Catalytic activity/Vol] 14 U/L 9 - 39 [facility] Work Phone: Bilirubin [Mass/Vol] 0.4 mg/dL 0.0 - 1.2 [facility] Work Phone: Calcium [Mass/Vol] 9.4 mg/dL 8.6 - 10.3 [facility] Work Phone: Chloride [Moles/Vol] 98 mmol/L 98 - 107 [facility] Work Phone: CO2 [Moles/Vol] 26 mmol/L 21 - 32 [facility] Work Phone: Creatinine [Mass/Vol] 0.54 mg/dL See Below [facility] Work Phone: Comment on above: Reference Range: 0.5 0 - 1.05 Glucose [Mass/Vol] 345 mg/dL above high threshold 74 - 99 [facility] Work Phone: Potassium [Moles/Vol] 4.0 mmol/L 3.5 - 5.3 [facility] Work Phone: Protein [Mass/Vol] 7.5 g/dL 6.4 - 8.2 [facility] Work Phone: Sodium [Moles/Vol] 133 mmol/L below low threshold 136 - 145 [facility] Work Phone: Urea nitrogen [Mass/Vol] 8 mg/dL 6 - 23 [facility] Work Phone: Laboratory - Drug toxicology on 10-23-2020 Amphetamines Screen Ql (U) Negative NEGATIVE [facility] Work Phone: Comment on above: CUTOFF LEVEL: 500 NG /ML Cross-reactivity has been reported with high concentrations of the following drugs: buproprion, chloroquine, chlorpromazine, ephedrine, mephentermine, fenfluramine, phentermine, phenylpropanolamine, pseudoephedrine, and propranolol. Barbiturates Screen Ql (U) Negative NEGATIVE [facility] Work Phone: Comment on above: CUTOFF LEVEL: 200 NG /ML Benzodiazepines Ql (U) Negative NEGATIVE [facility] Work Phone: Comment on above: CUTOFF LEVEL: 200 NG /ML Benzoylecgonine Screen Ql (U) Negative NEGATIVE [facility] Work Phone: Comment on above: CUTOFF LEVEL: 150 NG /ML Cannabinoids Screen Ql (U) Negative NEGATIVE [facility] Work Phone: Comment on above: CUTOFF LEVEL: 50 NG/ ML Methadone Screen Ql (U) Negative NEGATIVE [facility] Work Phone: Comment on above: CUTOFF LEVEL: 150 NG /ML The metabolite F-vyhjp-yimwqsvmlhjmjq (LAAM) is not detected by this method in concentrations that would be found in the urine of patients on LAAM therapy. Opiates Screen Ql (U) Negative NEGATIVE [facility] Work Phone: Comment on above: CUTOFF LEVEL: 300 NG /ML The opiate screen does not detect fentanyl, meperidine, or tramadol. Oxycodone is not consistently detected (refer to Oxycodone Screen, Urine result). oxyCODONE+oxyMORphone Screen Ql (U) Negative NEGATIVE [facility] Work Phone: Comment on above: CUTOFF LEVEL: 100 NG /ML This test will accurately detect both oxycodone and oxymorphone. Phencyclidine Ql (U) Negative NEGATIVE [facility] Work Phone: Comment on above: CUTOFF LEVEL: 25 NG/ ML Cross-reactivity has been reported with dextromethorphan. No Panel Informationon 10-23 >60 >60 [facility] Work Phone: Comment on above: CALCULATIONS OF ASCENCION MATED GFR ARE PERFORMED USING THE MDRD STUDY EQUATION FOR THE IDMS-TRACEABLE CREATININE METHODS. CLIN CHEM 2007;53:766-[address] [facility] Work Phone: Comment on above: Drug screen results are presumptive and should not be used to assess compliance with prescribed medication. Contact the performing [facility] laboratory to add-on definitive confirmatory testing [...] 10-23-2020 XR Chest Single view Normal MP-U [facility] Work Phone: Urinalysison 10-23-2020 Color (U) Straw See Below [facility] Work Phone: Comment on above: Reference Range: STR AW,YELLOW Glucose Ql (U) >=500(3+) Abnormal NEGATIVE [facility] Work Phone: Ketones Ql (U) 5(TRACE) Abnormal NEGATIVE [facility] Work Phone: Leukocyte esterase Test strip Ql (U) MODERATE(2+) Abnormal NEGATIVE [facility] Work Phone: pH (U) 5.0 [pH] 5.0 - 8.0 [facility] Work Phone: Protein (U) [Mass/Vol] Negative NEGATIVE [facility] Work Phone: RBC (U) [#/Vol] Negative NEGATIVE [facility] Work Phone: Specific gravity (U) [Rel density] 1.037 1 above high threshold See Below [facility] Work Phone: Comment on above: Reference Range: 1.0 05 - 1.035 Urinalysis Negative NEGATIVE [facility] Work Phone: Comment on above: CUTOFF LEVEL: 1 NG/M L The performance characteristics of this test have been determined by the individual laboratory site where testing is performed. This test has not been cleared or approved by the FDA; however, the FDA has determined that such clearance is not necessary. Urinalysis <2.0 0.0 - 1.9 [facility] Work Phone: Urinalysis HAZY CLEAR [facility] Work Phone: Urinalysis, Microscopicon Urinalysis, Microscopic 5 {/HPF} [facility] Work Phone: Urinalysis, Microscopic None 0-5 [facility] Work Phone: Urinalysis, Microscopic 19 {/HPF} Abnormal 0-5 [facility] Work Phone: EEG (STANDARD)on 07-19-2020 Srini Medina MD 07/19/2020 4:43 PM [facility] EEG Report Reason for EEG: Spells [...] epileptiform discharges or ictal activity was seen. [facility] COVID-19, MOLECULARon 2019 SARS-COV-2 RNA (JANIS) Not Detected Normal Not Detected [facility] Comment on above: Result Comment: This [...] at the following links: For Healthcare Providers: https://www.fda.gov/media/880208/download For Patients: https://www.fda.gov/media/072846/download Performed By: #### L [id number] #### [facility] [address] [place] [address] Regulo Hazel M.D. [id number] Hemoglobin A1Con 01-31-2020 HbA1c (Bld) [Mass fraction] 8.2 % [facility] Work Phone: Comment on above: Diagnosis of Diabete s-Adults Non-Diabetic: < or = 5.6% Increased risk for developing diabetes: 5.7-6.4% Diagnostic of diabetes: > or = 6.5%. Monitoring of Diabetes Age (y) Therapeutic Goal (%) Adults: >18 <7.0 Pediatrics: 13-18 <7.5 7-12 <8.0 0- 6 7.5-8.5 [place]. Diabetes Care 33(S1), Jun 2009. HbA1c (Bld) [Mass fraction] 189 {MG/DL} [facility] Work Phone: Sedimentation Rateon 020 ESR (Bld) [Velocity] 19 mm/h [facility] Interpretation and review of laboratory results Normal [facility] Complete Blood Count + Diffe rentialon 09-28-2019 Basophils (Bld) [#/Vol] 0.10 {x10E9/L} See Below [facility] Work Phone: Comment on above: Reference Range: 0.0 0 - 0.10 Basophils/100 WBC (Bld) 0.8 % 0.0 - 2.0 [facility] Work Phone: Eosinophils (Bld) [#/Vol] 0.20 {x10E9/L} See Below [facility] Work Phone: Comment on above: Reference Range: 0.0 0 - 0.70 Eosinophils/100 WBC (Bld) 2.1 % 0.0 - 6.0 [facility] Work Phone: Erythrocyte distribution width (RBC) [Ratio] 12.7 % See Below [facility] Work Phone: Comment on above: Reference Range: 11. 5 - 14.5 Hematocrit (Bld) [Volume fraction] 42.0 % See Below [facility] Work Phone: Comment on above: Reference Range: 36. 0 - 46.0 Hemoglobin (Bld) [Mass/Vol] 14.4 g/dL See Below [facility] Work Phone: Comment on above: Reference Range: 12. 0 - 16.0 Lymphocytes (Bld) [#/Vol] 2.20 {x10E9/L} See Below [facility] Work Phone: Comment on above: Reference Range: 1.2 0 - 4.80 Lymphocytes/100 WBC (Bld) 29.7 % See Below [facility] Work Phone: Comment on above: Reference Range: 13. 0 - 44.0 MCHC (RBC) [Mass/Vol] 34.4 g/dL See Below [facility] Work Phone: Comment on above: Reference Range: 32. 0 - 36.0 MCV (RBC) [Entitic vol] 87 fL 80 - 100 [facility] Work Phone: Monocytes (Bld) [#/Vol] 0.40 {x10E9/L} See Below [facility] Work Phone: Comment on above: Reference Range: 0.1 0 - 1.00 Monocytes/100 WBC (Bld) 5.2 % 2.0 - 10.0 [facility] Work Phone: Neutrophils (Bld) [#/Vol] 4.70 {x10E9/L} See Below [facility] Work Phone: Comment on above: Reference Range: 1.2 0 - 7.70 Percent differential counts (%) should be interpreted in the context of the absolute cell counts (cells/L). Neutrophils/100 WBC (Bld) 62.2 % See Below [facility] Work Phone: Comment on above: Reference Range: 40. 0 - 80.0 Platelets (Bld) [#/Vol] 263 {x10E9/L} 150 - 450 [facility] Work Phone: RBC (Bld) [#/Vol] 4.85 {x10E12/L} See Below [facility] Work Phone: Comment on above: Reference Range: 4.0 0 - 5.20 WBC (Bld) [#/Vol] 0.1 {/100_WBC} [facility] Work Phone: WBC (Bld) [#/Vol] 7.5 {x10E9/L} 4.4 - 11.3 [facility] Work Phone: HCG, Beta Quantitativeon HCG.beta subunit Qn m[IU]/mL [facility] Work Phone: Comment on above: Low-level [...] HCG measurement is performed using the [employer] Access Immunoassay which detects intact HCG and free beta HCG subunit. This test is not indicated for use as a tumor marker. HCG testing is performed using a different test methodology at [facility] than other [facility]. Direct result comparison should only be made within the same method. REF VALUESNON FEMALE <5MALES <5 Hemoglobin A1Con 09-28-2019 HbA1c (Bld) [Mass fraction] 7.2 % [facility] Work Phone: Comment on above: Diagnosis of Diabete s-Adults Non-Diabetic: < or = 5.6% Increased risk for developing diabetes: 5.7-6.4% Diagnostic of diabetes: > or = 6.5%. Monitoring of Diabetes Age (y) Therapeutic Goal (%) Adults: >18 <7.0 Pediatrics: 13-18 <7.5 7-12 <8.0 0- 6 7.5-8.5 [place]. Diabetes Care 33(S1), Jun 2009. HbA1c (Bld) [Mass fraction] 160 {MG/DL} [facility] Work Phone: Metabolic Panelon 09-28-2019 Anion gap [Moles/Vol] 11 mmol/L 10 - 20 [facility] Work Phone: Calcium [Mass/Vol] 9.6 mg/dL 8.6 - 10.3 [facility] Work Phone: Chloride [Moles/Vol] 104 mmol/L 98 - 107 [facility] Work Phone: CO2 [Moles/Vol] 26 mmol/L 21 - 32 [facility] Work Phone: Creatinine [Mass/Vol] 0.65 mg/dL See Below [facility] Work Phone: Comment on above: Reference Range: 0.5 0 - 1.05 Glucose [Mass/Vol] 252 mg/dL above high threshold 74 - 99 [facility] Work Phone: Potassium [Moles/Vol] 3.8 mmol/L 3.5 - 5.3 [facility] Work Phone: Sodium [Moles/Vol] 137 mmol/L 136 - 145 [facility] Work Phone: Urea nitrogen [Mass/Vol] 14 mg/dL 6 - 23 [facility] Work Phone: Otheron 09-28-2019 >60 >60 [facility] Work Phone: Comment on above: CALCULATIONS OF ASCENCION MATED GFR ARE PERFORMED USING THE MDRD STUDY EQUATION FOR THE IDMS-TRACEABLE CREATININE METHODS. CLIN CHEM 2007;[id number] Thyroidon 09-28-2019 TSH Qn 0.54 {mIU/L} See Below [facility] Work Phone: Comment on above: Reference Range: 0.4 4 - 3.98 Note new pediatric reference range as of 08/12/2019. TSH testing is performed using different testing methodology at [facility] than at other [facility]. Direct result comparisons should only be made within the same method. HCG, Beta Quantitativeon HCG.beta subunit Qn m[IU]/mL [facility] and [employer] Work Phone: Comment on above: Low-level positive [...] HCG measurement is performed using the [employer] Access Immunoassay which detects intact HCG and free beta HCG subunit. This test is not indicated for use as a tumor marker. HCG testing is performed using a different test methodology at [facility] than other [facility]. Direct result comparison should only be made within the same method. REF VALUESNON FEMALE <5MALES <5 IO HCG, Urine Test on 05-13-2019 HCG ( test) Ql (U) Negative [facility] and [address] [employer] Work Phone: Comment on above: MEDLINE [id number] P 10/06/2020 URINALYSISon 03-21-2019 Bacteria Auto Ql (U) None Seen None Se en /hpf [facility] Bilirubin Ql (U) Negative Negative [facility] Clarity Refractometry automated (U) Hazy Abnormal Clear [facility] Color (U) Yellow Colorless, Yellow [facility] Epithelial cells.squamous Auto (Urine sed) [#/Area] 4 [facility] Glucose Auto test strip (U) [Mass/Vol] Negative Negative mg/dL [facility] Hemoglobin Auto test strip Ql (U) Negative Negative [facility] Interpretation and review of laboratory results Abnormal [facility] Ketones (U) [Mass/Vol] Negative Negative mg/dL [facility] Leukocyte esterase Auto test strip Ql (U) Trace Abnormal Negative [facility] Mucus Auto (Urine sed) [#/Area] Rare None Seen, Rare /lpf [facility] Nitrite Auto test strip Ql (U) Negative Negative [facility] pH (U) 6.0 [pH] [facility] Protein (U) [Mass/Vol] Negative Negative mg/dL [facility] RBC Auto (Urine sed) [#/Area] <1 [facility] Specific gravity (U) [Rel density] 1.020 [facility] [place] Auto (Urine sed) [#/Area] Present Abnormal None Seen /hpf [facility] Urobilinogen (U) [Mass/Vol] >=4.0 Abnormal <2.0 mg/dL [facility] WBC Auto (Urine sed) [#/Area] 1 [facility] Microscopic examinat ion is performed on all urinalysis samples and only positive findings are reported. The test for blood on the chemical analytic portion of urinalysis may also be positive due to hemoglobinuria and myoglobinuria and if red blood cells are present they are quantified by microscopic examination. [facility] hCG, Blood,QUALitativeon Beta HCG ( test) Ql Negative Negative [facility] Interpretation and review of laboratory results Normal [facility] Negative: The result is less than or equal to 5 mIU/mL of HCG. [facility] Alcohol, Medicalon 9 Ethanol [Mass/Vol] mg/dL <10.00 mg/dL [facility] Interpretation and review of laboratory results Normal [facility] DRUGS OF ABUSE SCREEN, URINE on 03-11-2019 Amphetamines Ql (U) None Detected None Detected [facility] Comment on above: Urine Amphetamine Cu toff: < 1000 ng/mL = None Detected Barbiturates Screen Ql (U) None Detected None Detected [facility] Comment on above: Urine Barbiturates C utoff: < 200 ng/mL = None Detected Benzodiazepines Ql (U) None Detected None Detected [facility] Comment on above: Urine Benzodiazepine Cutoff: < 200 ng/mL = None Detected Cannabinoids Screen Ql (U) None Detected None Detected [facility] Comment on above: Urine Cannabinoids C utoff: < 50 ng/mL = None Detected Cocaine Ql (U) None Detected None Detected [facility] Comment on above: Urine Cocaine Cutoff : < 300 ng/mL = None Detected Interpretation and review of laboratory results Normal [facility] Methadone Screen Ql (U) None Detected None Detected [facility] Comment on above: Urine Methadone Cuto ff: < 300 ng/mL = None Detected Opiates Screen Ql (U) None Detected None Detected [facility] Comment on above: Urine Opiates Cutoff : < 300 ng/mL = None Detected Oxycodone Ql (U) None Detected None Detected [facility] Comment on above: Urine Oxycodone Cuto ff: < 100 ng/mL = None Detected Screen results shoul d be used for treatment purposes only. [facility] Otheron 03-11-2019 Extra Tube Hold for add-ons. [facility] Comment on above: Auto resulted. URINALYSISon 03-11-2019 Bacteria Auto Ql (U) None Seen None Se en /hpf [facility] Bilirubin Ql (U) Negative Negative [facility] Clarity Refractometry automated (U) Hazy Abnormal Clear [facility] Color (U) Yellow Colorless, Yellow [facility] Epithelial cells.squamous Auto (Urine sed) [#/Area] 6 High [facility] Glucose Auto test strip (U) [Mass/Vol] Negative Negative mg/dL [facility] Hemoglobin Auto test strip Ql (U) Negative Negative [facility] Interpretation and review of laboratory results Abnormal [facility] Ketones (U) [Mass/Vol] Trace Abnormal Negative mg/dL [facility] Leukocyte esterase Auto test strip Ql (U) Negative Negative [facility] Mucus Auto (Urine sed) [#/Area] Few Abnormal None Seen, Rare /lpf [facility] Nitrite Auto test strip Ql (U) Negative Negative [facility] pH (U) 5.0 [pH] [facility] Protein (U) [Mass/Vol] Negative Negative mg/dL [facility] RBC Auto (Urine sed) [#/Area] 2 [facility] Specific gravity (U) [Rel density] 1.029 High [facility] Transitional cells Computer assisted (U) [#/Area] <1 [facility] Urobilinogen (U) [Mass/Vol] 2.0 mg/dL Abnormal <2.0 [facility] WBC Auto (Urine sed) [#/Area] 2 [facility] Microscopic examinat ion is performed on all urinalysis samples and only positive findings are reported. The test for blood on the chemical analytic portion of urinalysis may also be positive due to hemoglobinuria and myoglobinuria and if red blood cells are present they are quantified by microscopic examination. [facility] Urine Pregnancyon 03-11-2019 HCG ( test) Ql (U) Negative Negative [facility] Interpretation and review of laboratory results Normal [facility] Alcohol, Medicalon 9 Ethanol [Mass/Vol] mg/dL <10.00 mg/dL [facility] Interpretation and review of laboratory results Normal [facility] DRUGS OF ABUSE SCREEN, URINE on 02-10-2019 Amphetamines Ql (U) None Detected None Detected [facility] Comment on above: Urine Amphetamine Cu toff: < 1000 ng/mL = None Detected Barbiturates Screen Ql (U) None Detected None Detected [facility] Comment on above: Urine Barbiturates C utoff: < 200 ng/mL = None Detected Benzodiazepines Ql (U) None Detected None Detected [facility] Comment on above: Urine Benzodiazepine Cutoff: < 200 ng/mL = None Detected Cannabinoids Screen Ql (U) None Detected None Detected [facility] Comment on above: Urine Cannabinoids C utoff: < 50 ng/mL = None Detected Cocaine Ql (U) None Detected None Detected [facility] Comment on above: Urine Cocaine Cutoff : < 300 ng/mL = None Detected Interpretation and review of laboratory results Normal [facility] Methadone Screen Ql (U) None Detected None Detected [facility] Comment on above: Urine Methadone Cuto ff: < 300 ng/mL = None Detected Opiates Screen Ql (U) None Detected None Detected [facility] Comment on above: Urine Opiates Cutoff : < 300 ng/mL = None Detected Oxycodone Ql (U) None Detected None Detected [facility] Comment on above: Urine Oxycodone Cuto ff: < 100 ng/mL = None Detected Screen results shoul d be used for treatment purposes only. [facility] Otheron 02-10-2019 Extra Tube Hold for add-ons. [facility] Comment on above: Auto resulted. Urine Pregnancyon 02-10-2019 HCG ( test) Ql (U) Negative Negative [facility] Interpretation and review of laboratory results Normal [facility] Hemoglobin A1con 01-01-2019 HbA1c (Bld) [Mass fraction] 7.1 % High 4.3-5.6 [facility] Comment on above: Performed By: #### H BA1C #### [facility] Routine Lab [address], [place] [address] HbA1c (Bld) [Mass fraction] 157 mg/dL Normal [facility] Comment on above: Performed By: #### H BA1C #### [facility] Routine Lab [address], [place] [address] URINALYSISon 10-07-2018 Bacteria Auto Ql (U) Rare Abnormal None Se en /hpf [facility] Bilirubin Ql (U) Negative Negative [facility] th Clarity Refractometry automated (U) Hazy Abnormal Clear [facility] Color (U) Yellow Colorless, Yellow [facility] Epithelial cells.squamous Auto (Urine sed) [#/Area] 8 High [facility] Glucose Auto test strip (U) [Mass/Vol] 150 Abnormal Negative mg/dL [facility] Hemoglobin Auto test strip Ql (U) Negative Negative [facility] Interpretation and review of laboratory results Abnormal [facility] Ketones (U) [Mass/Vol] >=80 Abnormal Negative mg/dL [facility] Leukocyte esterase Auto test strip Ql (U) Small Abnormal Negative [facility] Nitrite Auto test strip Ql (U) Negative Negative [facility] pH (U) 5.0 [pH] [facility] Protein (U) [Mass/Vol] Negative Negative mg/dL [facility] RBC Auto (Urine sed) [#/Area] 2 [facility] Specific gravity (U) [Rel density] 1.014 [facility] Urobilinogen (U) [Mass/Vol] <2.0 <2.0 mg/dL [facility] WBC Auto (Urine sed) [#/Area] 17 High [facility] Microscopic examinat ion is performed on all urinalysis samples and only positive findings are reported. The test for blood on the chemical analytic portion of urinalysis may also be positive due to hemoglobinuria and myoglobinuria and if red blood cells are present they are quantified by microscopic examination. [facility] Urine Pregnancyon 10-07-2018 HCG ( test) Ql (U) Negative Negative [facility] Interpretation and review of laboratory results Normal [facility] XR CHEST AP/PA AND LATon Cholesterol [Mass/Vol] 1. No acute cardiopulmonary process. 2. Cholecystectomy. [facility] Workstation ID: [id number] [facility] EXAMINATION: XR CHES T AP/PA AND [...] abnormality noted. The gallbladder is surgically absent. [facility], Rad In Fu ji Speechq - 10/07/2018 [...] 1. No acute cardiopulmonary process. 2. Cholecystectomy. [facility] Workstation ID: [id number] [facility] POC Glucoseon 10-06-2018 Glucose [Mass/Vol] 228 mg/dL High 65 - 99 mg/dL [facility] Interpretation and review of laboratory results Abnormal [facility] POC Glucoseon 10-05-2018 Glucose [Mass/Vol] 338 mg/dL High 65 - 99 mg/dL [facility] Interpretation and review of laboratory results Abnormal [facility] Glucose [Mass/Vol] 383 mg/dL High 65 - 99 mg/dL [facility] Interpretation and review of laboratory results Abnormal [facility] XR CHEST AP/PA AND LATon No acute cardiopulmonary disease. [facility] Workstation ID: [id number] [facility] CLINICAL HISTORY: Shortness of breath. EXAMINATION: PA AND LATERAL CHEST: 10/04/2018. COMPARISON: PA and lateral chest 03/29/2016. FINDINGS: Two views in 3 films are provided which demonstrate there is some motion artifact on the AP view chest. The visualized osseous structures, heart, mediastinum are normal. The aorta has normal contour. Lungs appear clear. There is no congestive heart failure or pneumothorax. [facility], Rad In Fu ji Speechq - [...] or pneumothorax. IMPRESSION: No acute cardiopulmonary disease. [facility] Workstation ID: [id number] [facility] Beta-Hydroxybutyrateon 10-04 Beta hydroxybutyrate [Moles/Vol] 0.2 mmol/L 0 - 0.3 mmol/L [facility] Interpretation and review of laboratory results Normal [facility] CBC WITH AUTO DIFFERENTIALon 10-04-2018 Basophils (Bld) [#/Vol] 0.04 10*3/uL [facility] Basophils/100 WBC (Bld) 0.4 % [facility] Eosinophils (Bld) [#/Vol] 0.23 10*3/uL [facility] Eosinophils/100 WBC (Bld) 2.6 % [facility] Erythrocyte distribution width (RBC) [Entitic vol] 12.2 % 11.6 - 14.8 % [facility] Hematocrit (Bld) [Volume fraction] 42.3 % 36 - 46 % [facility] Hemoglobin (Bld) [Mass/Vol] 14.5 g/dL 12 - 16 g/dL [facility] Immature granulocytes (Bld) [#/Vol] 0.03 10*3/uL [facility] Immature granulocytes/100 WBC (Bld) 0.30 % [facility] Comment on above: The IG parameter is the percentage of metamyelocytes, myelocytes, and promyelocytes. Lymphocytes (Bld) [#/Vol] 1.76 10*3/uL [facility] Lymphocytes/100 WBC (Bld) 19.8 % [facility] MCH (RBC) [Entitic mass] 28.3 pg 26 - 34 pg [facility] MCHC (RBC) [Mass/Vol] 34.3 g/dL 31 - 37 g/dL [facility] MCV (RBC) [Entitic vol] 82.6 fL 80 - 100 fL [facility] Monocytes (Bld) [#/Vol] 0.47 10*3/uL [facility] Monocytes/100 WBC (Bld) 5.3 % [facility] Neutrophils (Bld) [#/Vol] 6.37 10*3/uL [facility] Neutrophils/100 WBC (Bld) 71.6 % [facility] Nucleated RBC (Bld) [#/Vol] 0.00 10*3/uL [facility] Nucleated RBC/100 WBC (Bld) [Ratio] 0.0 % [facility] Platelet mean volume (Bld) [Entitic vol] 10.4 fL 9 - 15.5 fL [facility] Platelets (Bld) [#/Vol] 248 10*3/uL [facility] RBC (Bld) [#/Vol] 5.12 10*6/uL [facility] WBC (Bld) [#/Vol] 8.90 10*3/uL [facility] Comprehensive Metabolic Pane saleem 10-04-2018 Albumin [Mass/Vol] 4.0 g/dL 3.2 - 5.2 g/dL [facility] ALP [Catalytic activity/Vol] 90 U/L 40 - 140 U/L [facility] ALT [Catalytic activity/Vol] 28 U/L 14 - 65 U/L [facility] Anion gap [Moles/Vol] 12 mmol/L 10 - 2 0 mmol/L [facility] AST [Catalytic activity/Vol] 14 U/L 0 - 45 U/L [facility] Bilirubin [Mass/Vol] 0.3 mg/dL 0 - 1.3 mg/dL [facility] Calcium [Mass/Vol] 9.0 mg/dL 8.4 - 10. 2 mg/dL [facility] Chloride [Moles/Vol] 102 mmol/L 98 - 10 8 mmol/L [facility] Creatinine [Mass/Vol] 0.86 mg/dL 0.4 - 1.1 mg/dL [facility] GFR/1.73 sq M predicted among non-blacks MDRD (S/P/Bld) [Vol rate/Area] The eGFR should be used for monitoring renal function only and not for medication dosing. [facility] GFR/1.73 sq M.predicted CKD-EPI (S/P/Bld) [Vol rate/Area] 96 >=60 mL/min/1.73 m2 [facility] Glucose [Mass/Vol] 460 mg/dL Critically high 65 - 9 9 mg/dL [facility] HCO3 [Moles/Vol] 26 mmol/L 21 - 32 mmol/L [facility] Potassium [Moles/Vol] 4.1 mmol/L 3.5 - 5.1 mmol/L [facility] Protein [Mass/Vol] 8.0 g/dL 6 - 8 g/dL [facility] alth Sodium [Moles/Vol] 136 mmol/L 135 - 145 mmol/L [facility] Urea nitrogen [Mass/Vol] 14 mg/dL 8 - 25 mg/dL [facility] Urea nitrogen/Creatinine [Mass ratio] 16.3 mg/mg [facility] D-DIMER, QUANTITATIVEon 09-08 Fibrin D-dimer FEU (PPP) [Mass/Vol] 0.31 0.27 - 0.49 mcg/mL FEU [facility] Interpretation and review of laboratory results Normal [facility] A D-dimer concentrat ion of <0.5 micrograms per milliliter FEU is considered a low probability for pulmonary embolus (PE) and deep venous thrombosis (DVT). Results of this test should always be interpreted in conjunction with the patient's medical history,clinical presentation, and other findings. Clinical diagnosis should not be based on the results of the D-dimer alone. [facility] Otheron 10-04-2018 Extra Tube Hold for add-ons. [facility] Comment on above: Auto resulted. Interpretation and review of laboratory results Abnormal [facility] POC ARTERIAL BLOOD GAS PANEL -PULM - RALSon 10-04-2018 Alveolar-arterial oxygen Partial pressure difference 16.2 mm Hg [facility] Base excess Calc (Bld) [Moles/Vol] -0.9 mmol/L [facility] Breath rate setting Ventilator synchronized intermittent mandatory 0 [facility] CO2 (Bld) [Partial pressure] 39.4 mm[Hg] [facility] HCO3 (Bld) [Moles/Vol] 24.0 mmol/L 22 - 26 mmol/L [facility] Hematocrit (BldA) [Volume fraction] 44.4 % 36 - 46 % [facility] Hemoglobin (Bld) [Mass/Vol] 14.5 g/dL 12 - 16 g/dL [facility] Inhaled oxygen concentration 21 % [facility] Oxygen (Bld) [Partial pressure] 83 mm[Hg] [facility] pH (Bld) 7.39 [pH] [facility] SaO2% (BldA) [Mass fraction] 96.8 % 92 - 99 % [facility] Specimen source Nom (Unsp spec) Brachial, right [facility] Tidal volume setting Ventilator 0 [facility] POC Glucoseon 10-04-2018 Glucose [Mass/Vol] 377 mg/dL High 65 - 99 mg/dL [facility] Interpretation and review of laboratory results Abnormal [facility] Glucose [Mass/Vol] 442 mg/dL Critically high 65 - 9 9 mg/dL [facility] Interpretation and review of laboratory results Abnormal [facility] Critical result acte d upon time of test. Test performed at bedside. [facility] URINALYSISon 10-04-2018 Bacteria Auto Ql (U) None Seen None Se en /hpf [facility] Bilirubin Ql (U) Negative Negative [facility] th Clarity Refractometry automated (U) Clear Clear [facility] Color (U) Colorless Colorless, Yellow [facility] Epithelial cells.squamous Auto (Urine sed) [#/Area] 4 [facility] Glucose Auto test strip (U) [Mass/Vol] >=500 Abnormal Negative mg/dL [facility] Hemoglobin Auto test strip Ql (U) Negative Negative [facility] Ketones (U) [Mass/Vol] Negative Negative mg/dL [facility] Leukocyte esterase Auto test strip Ql (U) Negative Negative [facility] Nitrite Auto test strip Ql (U) Negative Negative [facility] pH (U) 7.0 [pH] [facility] Protein (U) [Mass/Vol] Negative Negative mg/dL [facility] RBC Auto (Urine sed) [#/Area] <1 [facility] Specific gravity (U) [Rel density] 1.018 [facility] Urobilinogen (U) [Mass/Vol] <2.0 <2.0 mg/dL [facility] WBC Auto (Urine sed) [#/Area] 1 [facility] Microscopic examinat ion is performed on all urinalysis samples and only positive findings are reported. The test for blood on the chemical analytic portion of urinalysis may also be positive due to hemoglobinuria and myoglobinuria and if red blood cells are present they are quantified by microscopic examination. [facility] Urine Pregnancyon 10-04-2018 HCG ( test) Ql (U) Negative Negative [facility] Interpretation and review of laboratory results Normal [facility] BETA HCG, QUANT, BLOODon HCG.beta subunit Qn 0.00 m[IU]/mL MIU/ML [facility] Comment on above: [facility]: NON FEMALE 0-6 MIU/ML MALE [...] PLATELETon 2018 ABSOLUTE BASOPHIL COUNT 0.1 X10 [facility] Basophils/100 WBC (Bld) 0.6 % 0 - 2 % [facility] Differential cell count method Nom (Bld) AUTO DIFF % [facility] Eosinophils #/vol (Bld) 0.30 10*3/uL X10 [facility] Eosinophils/100 WBC (Bld) 3.9 % 0 - 11 % [facility] Erythrocyte distribution width Ratio (RBC) 12.9 % 11.5 - 14.5 % [facility] Hematocrit Volume Fraction (Bld) 44.2 % 36 - 48 % [facility] Hemoglobin mass conc (Bld) 15.7 g/dL [facility] Lymphocytes #/vol (Bld) 3.30 10*3/uL X10 [facility] Lymphocytes/100 WBC (Bld) 36.9 % 20 - 55 % [facility] MCH Entitic mass (RBC) 29.1 pg 26 - 35 PG [facility] MCHC mass conc (RBC) 35.5 g/dL [facility] MCV Entitic volume (RBC) 82.2 fL [facility] Monocytes #/vol (Bld) 0.5 10*3/uL X10 [facility] Monocytes/100 WBC (Bld) 5.5 % 0 - 10 % [facility] Neutrophils #/vol (Bld) 4.7 10*3/uL [facility] Neutrophils/100 WBC (Bld) 53.1 % 37 - 75 % [facility] Platelet mean volume Entitic volume (Bld) 8.0 fL [facility] Platelets #/vol (Bld) 272 10*3/uL [facility] RBC #/vol (Bld) 5.38 10*6/uL [facility] WBC #/vol (Bld) 8.9 10*3/uL [facility] ALTH COMPREHENSIVE METABOLIC PANE Saleem 09-12-2018 Albumin mass conc 4.4 G/dl 3.5 - 5 G/dl [facility] Albumin/Globulin mass ratio 1.3 {ratio} [facility] ALP enzyme act/vol 77 U/L [facility] ALT enzyme act/vol 29 U/L [facility] AST enzyme act/vol 19 U/L [facility] Bilirubin mass conc 0.7 mg/dL [facility] Calcium mass conc 9.2 mg/dL [facility] Chloride molar conc 102 mmol/L [facility] CO2 molar conc 23 mmol/L [facility] Creatinine mass conc 0.6 mg/dL [facility] GFR/1.73 sq M predicted among blacks MDRD vol rate/area (S/P/Bld) mL/min/{1.73_m2} ml/min/1.73s q.m [facility] GFR/1.73 sq M predicted among non-blacks MDRD vol rate/area (S/P/Bld) mL/min/{1.73_m2} ml/min/1.73s q.m [facility] GFR/1.73 sq M predicted among non-blacks MDRD vol rate/area (S/P/Bld) Average GFR for 20-29 years old = 116. [facility] Comment on above: Chronic Kidney disea se, GFR = <60. Kidney failure, GFR = <15. The GFR estimate is not adjusted for extreme body surface area or acute process, nor has it been validated for women or ethnic groups other than and . Glucose fasting mass conc 301 mg/dL High [facility] Comment on above: NORMAL <100 mg/dL PREDIABETES 101-126 mg/dL DIABETES 126 mg/dL or higher Interpretation and review of laboratory results Abnormal [facility] Potassium molar conc 3.7 mmol/L [facility] Protein mass conc 7.8 g/dL [facility] Sodium molar conc 135 mmol/L Low [facility] Urea nitrogen mass conc 17 mg/dL [facility] HCG QUALITATIVE, URINEon HCG ( test) Ql (U) Negative NEGATIVE [facility] POCT GLUCOSEon 09-12-2018 Glucose mass conc 247 mg/dL Abnormal 70 - 99 mg/dL [facility] Interpretation and review of laboratory results Abnormal [facility] URINALYSIS, MACROon 09-13-19 19 Bilirubin Ql (U) Negative NEGATIVE [facility] HE ALTH Clarity Nom (U) CLEAR CLEAR [facility] Color Nom (U) YELLOW YELLOW [facility] Glucose Test strip mass conc (U) 500 mg/dl Abnormal NEGATIVE [facility] Hemoglobin Ql (U) Negative NEGATIVE [facility] Interpretation and review of laboratory results Abnormal [facility] Ketones mass conc (U) 15 mg/dl Abnormal NEGATIVE [facility] Leukocyte esterase Test strip Ql (U) Negative NEGATIVE [facility] Nitrite Ql (U) Negative NEGATIVE [facility] TH pH (U) 5.5 [pH] [facility] Protein Ql (U) Negative NEGATIVE mg/dl [facility] Specific gravity Relative Density (U) 1.020 [facility] Urobilinogen mass conc (U) 0.2 mg/dl 0.2 - 1 mg/dl [facility] URINE MICROSCOPICon 09-13-19 19 Bacteria LM.HPF #/area (Urine sed) Negative NEGATIVE [facility] Casts LM.LPF #/area (Urine sed) NONE NONE /LPF [facility] Crystals LM Nom (Urine sed) NONE NONE [facility] Epithelial cells LM Ql (Urine sed) 5 TO 10 /HPF [facility] Mucus Ql (Urine sed) Negative NEGATIVE [facility] RBC LM.HPF #/area (Urine sed) Negative NEGATIVE /HPF [facility] Urine sediment comments LM Jorge (Urine sed) CULTURE CRITERIA NOT MET, NO CULTURE PERFORMED. [facility] WBC LM.HPF #/area (Urine sed) Negative NEGATIVE /HPF [facility] Beta Hydroxybutyrateon 07-16 Beta Hydroxybutyrate 0.2 mmol/L Normal 0.00-0.30 [facility] Comment on above: Performed By: #### C BCDIF, HCGQT, LIPASE, CMET, BHBA #### Unless otherwise noted, all testing performed by [place] [address] [place] [address] CLIA: [id number] Administrative Services Manager: Cristofer Perry M.D. CBC with Diffon 07-16-2018 Basophils #/vol (Bld) 0.1 K/mcL Normal 0-0.2 [facility] Comment on above: Performed By: #### C BCDIF, HCGQT, LIPASE, CMET, BHBA #### Unless otherwise noted, all testing performed by [place] [address] CLIA: [id number] Administrative Services Manager: Cristofer Perry M.D. Basophils/100 WBC (Bld) 1.0 % Normal [facility] Comment on above: Performed By: #### C BCDIF, HCGQT, LIPASE, CMET, BHBA #### Unless otherwise noted, all testing performed by [place] [address] CLIA: [id number] Administrative Services Manager: Cristofer Perry M.D. Eosinophils #/vol (Bld) 0.1 K/mcL Normal 0-0.5 [facility] Comment on above: Performed By: #### C BCDIF, HCGQT, LIPASE, CMET, BHBA #### Unless otherwise noted, all testing performed by [place] [address] CLIA: [id number] Administrative Services Manager: Cristofer Perry M.D. Eosinophils/100 WBC (Bld) 1.1 % Normal [facility] Comment on above: Performed By: #### C BCDIF, HCGQT, LIPASE, CMET, BHBA #### Unless otherwise noted, all testing performed by [place] [address] CLIA: [id number] Administrative Services Manager: Cristofer Perry M.D. Erythrocyte distribution width Ratio (RBC) 13.6 % Normal 10.0-14.4 [facility] Comment on above: Performed By: #### C BCDIF, HCGQT, LIPASE, CMET, BHBA #### Unless otherwise noted, all testing performed by [place] [address] CLIA: [id number] Administrative Services Manager: Cristofer Perry M.D. Hematocrit Volume Fraction (Bld) 47.6 % High 34.4-44.8 [facility] Comment on above: Performed By: #### C BCDIF, HCGQT, LIPASE, CMET, BHBA #### Unless otherwise noted, all testing performed by [place] [address] CLIA: [id number] Administrative Services Manager: Cristofer Perry M.D. Hemoglobin mass conc (Bld) 16.3 g/dL High 11.6-15.4 [facility] Comment on above: Performed By: #### C BCDIF, HCGQT, LIPASE, CMET, BHBA #### Unless otherwise noted, all testing performed by [place] [address] CLIA: [id number] Administrative Services Manager: Cristofer Perry M.D. Lymphocytes #/vol (Bld) 2.3 K/mcL Normal 1.0-3.7 [facility] Comment on above: Performed By: #### C BCDIF, HCGQT, LIPASE, CMET, BHBA #### Unless otherwise noted, all testing performed by [place] [address] CLIA: [id number] Administrative Services Manager: Cristofer Perry M.D. Lymphocytes/100 WBC (Bld) 29.8 % Normal [facility] Comment on above: Performed By: #### C BCDIF, HCGQT, LIPASE, CMET, BHBA #### Unless otherwise noted, all testing performed by [place] [address] CLIA: [id number] Administrative Services Manager: Cristofer Perry M.D. MCH Entitic mass (RBC) 27.5 pg Low 27.9-33.9 [facility] Comment on above: Performed By: #### C BCDIF, HCGQT, LIPASE, CMET, BHBA #### Unless otherwise noted, all testing performed by [place] [phone] CLIA: [id number] Administrative Services Manager: Cristofer Perry M.D. MCHC mass conc (RBC) 34.1 g/dL Normal 33.1-35.1 [facility] Comment on above: Performed By: #### C BCDIF, HCGQT, LIPASE, CMET, BHBA #### Unless otherwise noted, all testing performed by [place] [address] CLIA: [id number] Administrative Services Manager: Cristofer Perry M.D. MCV Entitic volume (RBC) 80.7 fL Low 82.6-98.9 [facility] Comment on above: Performed By: #### C BCDIF, HCGQT, LIPASE, CMET, BHBA #### Unless otherwise noted, all testing performed by [place] [address] CLIA: [id number] Administrative Services Manager: Cristofer Perry M.D. Monocytes #/vol (Bld) 0.5 K/mcL Normal 0.1-0.6 [facility] Comment on above: Performed By: #### C BCDIF, HCGQT, LIPASE, CMET, BHBA #### Unless otherwise noted, all testing performed by [place] [address] CLIA: [id number] Administrative Services Manager: Cristofer Perry M.D. Monocytes/100 WBC (Bld) 6.3 % Normal [facility] Comment on above: Performed By: #### C BCDIF, HCGQT, LIPASE, CMET, BHBA #### Unless otherwise noted, all testing performed by [place] [address] CLIA: [id number] Administrative Services Manager: Cristofer Perry M.D. Neutrophils #/vol (Bld) 4.7 K/mcL Normal 1.2-6.9 [facility] Comment on above: Performed By: #### C BCDIF, HCGQT, LIPASE, CMET, BHBA #### Unless otherwise noted, all testing performed by [place] [address] CLIA: [id number] Administrative Services Manager: Cristofer Perry M.D. Platelet mean volume Entitic volume (Bld) 8.3 fL Normal 7.0-10.6 [facility] Comment on above: Performed By: #### C BCDIF, HCGQT, LIPASE, CMET, BHBA #### Unless otherwise noted, all testing performed by [place] [address] CLIA: [id number] Administrative Services Manager: Cristofer Perry M.D. Platelets #/vol (Bld) 243 K/mcL Normal 162-402 [facility] Comment on above: Performed By: #### C BCDIF, HCGQT, LIPASE, CMET, BHBA #### Unless otherwise noted, all testing performed by [place] [address] CLIA: [id number] Administrative Services Manager: Cristofer Perry M.D. RBC #/vol (Bld) 5.90 M/mcL High 3.7-5.0 [facility] Comment on above: Performed By: #### C BCDIF, HCGQT, LIPASE, CMET, BHBA #### Unless otherwise noted, all testing performed by [place] [address] CLIA: [id number] Administrative Services Manager: Cristofer Perry M.D. Segmented Neut % 61.8 % Normal [facility] Comment on above: Performed By: #### C BCDIF, HCGQT, LIPASE, CMET, BHBA #### Unless otherwise noted, all testing performed by [place] [address] CLIA: [id number] Administrative Services Manager: Cristofer Perry M.D. WBC #/vol (Bld) 7.6 K/mcL Normal 3.4-10.6 [facility] Comment on above: Performed By: #### C BCDIF, HCGQT, LIPASE, CMET, BHBA #### Unless otherwise noted, all testing performed by [place] [address] CLIA: [id number] Administrative Services Manager: Cristofer Perry M.D. [facility],PELVIS IV CONTRAST ONLY Final Report Accession No: [id number] Performed: Jul 16 2018 4:33PM Examination: [...] WAYNE M.D. Trans: dcarr : cc: Normal [facility] Comprehensive Metabolic Pane saleem 07-16-2018 Albumin mass conc 4.2 g/dL Normal 3.2-5.2 [facility] Comment on above: Performed By: #### C BCDIF, HCGQT, LIPASE, CMET, BHBA #### Unless otherwise noted, all testing performed by [place] [address] CLIA: [id number] Administrative Services Manager: Cristofer Perry M.D. ALP enzyme act/vol 113 U/L Normal 40-140 [facility] Comment on above: Performed By: #### C BCDIF, HCGQT, LIPASE, CMET, BHBA #### Unless otherwise noted, all testing performed by [place] [address] CLIA: [id number] Administrative Services Manager: Cristofer Perry M.D. ALT enzyme act/vol 39 U/L Normal 14-65 [facility] Comment on above: Result Comment: This test result might be falsely depressed or falsely elevated on samples drawn from patients taking Sulfasalazine and Sulfapyridine. Venipuncture should occur prior to taking either of these drugs. Performed By: #### C BCDIF, HCGQT, LIPASE, CMET, BHBA #### Unless otherwise noted, all testing performed by [place] [address] CLIA: [id number] Administrative Services Manager: Cristofer Perry M.D. AST enzyme act/vol 12 U/L Normal 0-45 [facility] Comment on above: Result Comment: This test result might be falsely depressed or falsely elevated on samples drawn from patients taking Sulfasalazine and Sulfapyridine. Venipuncture should occur prior to taking either of these drugs. Performed By: #### C BCDIF, HCGQT, LIPASE, CMET, BHBA #### Unless otherwise noted, all testing performed by [place] [address] CLIA: [id number] Administrative Services Manager: Cristofer Perry M.D. Bilirubin mass conc 0.7 mg/dL Normal 0.3-1.2 [facility] Comment on above: Performed By: #### C BCDIF, HCGQT, LIPASE, CMET, BHBA #### Unless otherwise noted, all testing performed by [place] [address] CLIA: [id number] Administrative Services Manager: Cristofer Perry M.D. Calcium mass conc 9.7 mg/dL Normal 8.4-10.2 [facility] Comment on above: Performed By: #### C BCDIF, HCGQT, LIPASE, CMET, BHBA #### Unless otherwise noted, all testing performed by [place] [address] CLIA: [id number] Administrative Services Manager: Cristofer Perry M.D. Chloride molar conc 103 mmol/L Normal 98-108 [facility] Comment on above: Performed By: #### C BCDIF, HCGQT, LIPASE, CMET, BHBA #### Unless otherwise noted, all testing performed by [place] [address] CLIA: [id number] Administrative Services Manager: Cristofer Perry M.D. CO2 molar conc 25 mmol/L Normal 21-32 [facility] Comment on above: Performed By: #### C BCDIF, HCGQT, LIPASE, CMET, BHBA #### Unless otherwise noted, all testing performed by [place] [address] CLIA: [id number] Administrative Services Manager: Cristofer Perry M.D. Creatinine mass conc 0.90 mg/dL Normal 0.40-1.10 [facility] Comment on above: Performed By: #### C BCDIF, HCGQT, LIPASE, CMET, BHBA #### Unless otherwise noted, all testing performed by [place] [address] CLIA: [id number] Administrative Services Manager: Cristofer Perry M.D. GFR/1.73 sq M predicted among blacks MDRD vol rate/area (S/P/Bld) mL/min/{1.73_m2} Normal [facility] Comment on above: Result Comment: Afri can Tog[place]ese GFR Calc Performed By: #### C BCDIF, HCGQT, LIPASE, CMET, BHBA #### Unless otherwise noted, all testing performed by [place] [address] CLIA: [id number] Administrative Services Manager: Cristofer Perry M.D. GFR/1.73 sq M predicted among non-blacks MDRD vol rate/area (S/P/Bld) mL/min/{1.73_m2} [facility] Comment on above: Result Comment: Non- GFR [...] Unless otherwise noted, all testing performed by [place] [address] CLIA: [id number] Administrative Services Manager: Cristofer Perry M.D. Glucose mass conc 367 mg/dL High 70-99 [facility] Comment on above: Result Comment: This test result might be falsely depressed or falsely elevated on samples drawn from patients taking Sulfasalazine and Sulfapyridine. Venipuncture should occur prior to taking either of these drugs. Performed By: #### C BCDIF, HCGQT, LIPASE, CMET, BHBA #### Unless otherwise noted, all testing performed by [place] [address] CLIA: [id number] Administrative Services Manager: Cristofer Perry M.D. Potassium molar conc 3.6 mmol/L Normal 3.5-5.1 [facility] Comment on above: Performed By: #### C BCDIF, HCGQT, LIPASE, CMET, BHBA #### Unless otherwise noted, all testing performed by [place] [address] CLIA: [id number] Administrative Services Manager: Cristofer Perry M.D. Protein mass conc 8.4 g/dL High 6.0-8.0 [facility] Comment on above: Performed By: #### C BCDIF, HCGQT, LIPASE, CMET, BHBA #### Unless otherwise noted, all testing performed by [place] [address] CLIA: [id number] Administrative Services Manager: Cristofer Perry M.D. Sodium molar conc 140 mmol/L Normal 135-145 [facility] Comment on above: Performed By: #### C BCDIF, HCGQT, LIPASE, CMET, BHBA #### Unless otherwise noted, all testing performed by [place] [address] CLIA: [id number] Administrative Services Manager: Cristofer Perry M.D. Urea nitrogen mass conc 7 mg/dL Low 8-25 [facility] Comment on above: Performed By: #### C BCDIF, HCGQT, LIPASE, CMET, BHBA #### Unless otherwise noted, all testing performed by [place] [address] CLIA: [id number] Administrative Services Manager: Cristofer Perry M.D. Lipaseon 07-16-2018 Lipase enzyme act/vol 83 U/L Normal 73-393 [facility] Comment on above: Performed By: #### C BCDIF, HCGQT, LIPASE, CMET, BHBA #### Unless otherwise noted, all testing performed by [place] [address] CLIA: [id number] Administrative Services Manager: Cristofer Perry M.D. Test,Urine Qualon 07-16-2018 HCG.beta subunit ( test) Ql (U) Negative Normal Negative [facility] Comment on above: Result Comment: Rapi d [...] Unless otherwise noted, all testing performed by [place] [address] CLIA: [id number] Administrative Services Manager: Cristofer Perry M.D. Urinalysis, Routineon 2018 Bilirubin,Urine Negative Normal NEG;NEGATIVE [facility] Comment on above: Performed By: #### C BCDIF, HCGQT, LIPASE, CMET, BHBA #### Unless otherwise noted, all testing performed by [place] [address] CLIA: [id number] Administrative Services Manager: Cristofer Perry M.D. Blood,Urine Negative Normal NEG;NEGATIVE [facility] Comment on above: Performed By: #### C BCDIF, HCGQT, LIPASE, CMET, BHBA #### Unless otherwise noted, all testing performed by [place] [address] CLIA: [id number] Administrative Services Manager: Cristofer Perry M.D. Character Nom (U) Hazy Normal [facility] Comment on above: Performed By: #### C BCDIF, HCGQT, LIPASE, CMET, BHBA #### Unless otherwise noted, all testing performed by [place] [address] CLIA: [id number] Administrative Services Manager: Cristofer Perry M.D. Color Nom (U) Yellow Normal [facility] Comment on above: Performed By: #### C BCDIF, HCGQT, LIPASE, CMET, BHBA #### Unless otherwise noted, all testing performed by [address] [place], [place] [address] CLIA: [id number] Administrative Services Manager: Cristofer Perry M.D. Glucose Ql (U) >= 500 High < 70 [facility] Comment on above: Performed By: #### C BCDIF, HCGQT, LIPASE, CMET, BHBA #### Unless otherwise noted, all testing performed by [place] [phone] CLIA: [id number] Administrative Services Manager: Cristofer Perry M.D. Ketone,Urine Trace Abnormal NEG;NEGATIVE [facility] Comment on above: Performed By: #### C BCDIF, HCGQT, LIPASE, CMET, BHBA #### Unless otherwise noted, all testing performed by [place] [phone] CLIA: [id number] Administrative Services Manager: Cristofer Perry M.D. Leuk.Esterase,Urine Trace Abnormal Negative [facility] Comment on above: Performed By: #### C BCDIF, HCGQT, LIPASE, CMET, BHBA #### Unless otherwise noted, all testing performed by [place] [phone] CLIA: [id number] Administrative Services Manager: Cristofer Perry M.D. Nitrite,Urine Negative Normal NEG;NEGATIVE [facility] Comment on above: Performed By: #### C BCDIF, HCGQT, LIPASE, CMET, BHBA #### Unless otherwise noted, all testing performed by [place] [phone] CLIA: [id number] Administrative Services Manager: Cristofer Perry M.D. pH (U) 6.0 [pH] Normal 4.5-8.0 [facility] Comment on above: Performed By: #### C BCDIF, HCGQT, LIPASE, CMET, BHBA #### Unless otherwise noted, all testing performed by [place] [address] CLIA: [id number] Administrative Services Manager: Cristofer Perry M.D. Protein mass conc (U) Negative Normal NEG;NEGATIVE O [facility] Comment on above: Performed By: #### C BCDIF, HCGQT, LIPASE, CMET, BHBA #### Unless otherwise noted, all testing performed by [place] [address] CLIA: [id number] Administrative Services Manager: Cristofer Perry M.D. RBC LM.HPF #/area (Urine sed) /[HPF] Normal 0-5 [facility] Comment on above: Performed By: #### C BCDIF, HCGQT, LIPASE, CMET, BHBA #### Unless otherwise noted, all testing performed by [place] [address] CLIA: [id number] Administrative Services Manager: Cristofer Perry M.D. Specific [place],Urine 1.036 High 1.003-1.029 [facility] Comment on above: Performed By: #### C BCDIF, HCGQT, LIPASE, CMET, BHBA #### Unless otherwise noted, all testing performed by [place] [address] CLIA: [id number] Administrative Services Manager: Cristofer Perry M.D. Squamous Epithelial 4 /HPF Normal 0-40 [facility] Comment on above: Performed By: #### C BCDIF, HCGQT, LIPASE, CMET, BHBA #### Unless otherwise noted, all testing performed by [place] [address] CLIA: [id number] Administrative Services Manager: Cristofer Perry M.D. Urobilinogen,Urine < 2.0 Normal <2 [facility] Comment on above: Result Comment: Urob ilinogen, Urine Reference Range: <2.0 mg/dL Performed By: #### C BCDIF, HCGQT, LIPASE, CMET, BHBA #### Unless otherwise noted, all testing performed by [place] [address] CLIA: [id number] Administrative Services Manager: Cristofer Perry M.D. WBC,Urine 3 /HPF Normal 0-5 [facility] Comment on above: Performed By: #### C BCDIF, HCGQT, LIPASE, CMET, BHBA #### Unless otherwise noted, all testing performed by [place] [address] CLIA: [id number] Administrative Services Manager: Cristofer Perry M.D. Glucose, POCon 02-02-2018 Glucose mass conc 183 mg/dL High 70-105 [facility] Comment on above: Performed By: #### G LUX #### Unless otherwise noted, all testing performed by [place] [address] CLIA: [id number] Administrative Services Manager: Cristofer Perry M.D. Beta Hydroxybutyrateon 02-01 Beta Hydroxybutyrate 0.1 mmol/L Normal 0.00-0.30 [facility] Comment on above: Performed By: #### C BCDIF, HCGQT, LIPASE, CMET, BHBA #### Unless otherwise noted, all testing performed by [address] [place], [place] [address] CLIA: [id number] Administrative Services Manager: Cristofer Perry M.D. CBC with Diffon 02-01-2018 Basophils #/vol (Bld) 0.0 K/mcL Normal 0-0.2 [facility] Comment on above: Performed By: #### C BCDIF, HCGQT, LIPASE, CMET, BHBA #### Unless otherwise noted, all testing performed by [place] [address] CLIA: [id number] Administrative Services Manager: Cristofer Perry M.D. Basophils/100 WBC (Bld) 0.6 % Normal [facility] Comment on above: Performed By: #### C BCDIF, HCGQT, LIPASE, CMET, BHBA #### Unless otherwise noted, all testing performed by [place] [address] CLIA: [id number] Administrative Services Manager: Cristofer Perry M.D. Eosinophils #/vol (Bld) 0.1 K/mcL Normal 0-0.5 [facility] Comment on above: Performed By: #### C BCDIF, HCGQT, LIPASE, CMET, BHBA #### Unless otherwise noted, all testing performed by [place] [address] CLIA: [id number] Administrative Services Manager: Cristofer Perry M.D. Eosinophils/100 WBC (Bld) 1.9 % Normal [facility] Comment on above: Performed By: #### C BCDIF, HCGQT, LIPASE, CMET, BHBA #### Unless otherwise noted, all testing performed by [place] [address] CLIA: [id number] Administrative Services Manager: Cristofer Perry M.D. Erythrocyte distribution width Ratio (RBC) 14.3 % Normal 10.0-14.4 [facility] Comment on above: Performed By: #### C BCDIF, HCGQT, LIPASE, CMET, BHBA #### Unless otherwise noted, all testing performed by [place] [address] CLIA: [id number] Administrative Services Manager: Cristofer Perry M.D. Hematocrit Volume Fraction (Bld) 43.7 % Normal 34.4-44.8 [facility] Comment on above: Performed By: #### C BCDIF, HCGQT, LIPASE, CMET, BHBA #### Unless otherwise noted, all testing performed by [place] [address] CLIA: [id number] Administrative Services Manager: Cristofer Perry M.D. Hemoglobin mass conc (Bld) 15.0 g/dL Normal 11.6-15.4 [facility] Comment on above: Performed By: #### C BCDIF, HCGQT, LIPASE, CMET, BHBA #### Unless otherwise noted, all testing performed by [place] [address] CLIA: [id number] Administrative Services Manager: Cristofer Perry M.D. Lymphocytes #/vol (Bld) 2.7 K/mcL Normal 1.0-3.7 [facility] Comment on above: Performed By: #### C BCDIF, HCGQT, LIPASE, CMET, BHBA #### Unless otherwise noted, all testing performed by [place] [address] CLIA: [id number] Administrative Services Manager: Cristofer Perry M.D. Lymphocytes/100 WBC (Bld) 35.0 % Normal [facility] Comment on above: Performed By: #### C BCDIF, HCGQT, LIPASE, CMET, BHBA #### Unless otherwise noted, all testing performed by [place] [address] CLIA: [id number] Administrative Services Manager: Cristofer Perry M.D. MCH Entitic mass (RBC) 27.5 pg Low 27.9-33.9 [facility] Comment on above: Performed By: #### C BCDIF, HCGQT, LIPASE, CMET, BHBA #### Unless otherwise noted, all testing performed by [place] [address] CLIA: [id number] Administrative Services Manager: Cristofer Perry M.D. MCHC mass conc (RBC) 34.3 g/dL Normal 33.1-35.1 [facility] Comment on above: Performed By: #### C BCDIF, HCGQT, LIPASE, CMET, BHBA #### Unless otherwise noted, all testing performed by [place] [address] CLIA: [id number] Administrative Services Manager: Cristofer Perry M.D. MCV Entitic volume (RBC) 80.3 fL Low 82.6-98.9 [facility] Comment on above: Performed By: #### C BCDIF, HCGQT, LIPASE, CMET, BHBA #### Unless otherwise noted, all testing performed by [place] [address] CLIA: [id number] Administrative Services Manager: Cristofer Perry M.D. Monocytes #/vol (Bld) 0.4 K/mcL Normal 0.1-0.6 [facility] Comment on above: Performed By: #### C BCDIF, HCGQT, LIPASE, CMET, BHBA #### Unless otherwise noted, all testing performed by [place] [address] CLIA: [id number] Administrative Services Manager: Cristofer Perry M.D. Monocytes/100 WBC (Bld) 4.8 % Normal [facility] Comment on above: Performed By: #### C BCDIF, HCGQT, LIPASE, CMET, BHBA #### Unless otherwise noted, all testing performed by [place] [phone] CLIA: [id number] Administrative Services Manager: Cristofer Perry M.D. Neutrophils #/vol (Bld) 4.5 K/mcL Normal 1.2-6.9 [facility] Comment on above: Performed By: #### C BCDIF, HCGQT, LIPASE, CMET, BHBA #### Unless otherwise noted, all testing performed by [place] [address] CLIA: [id number] Administrative Services Manager: Cristofer Perry M.D. Platelet mean volume Entitic volume (Bld) 7.9 fL Normal 7.0-10.6 [facility] Comment on above: Performed By: #### C BCDIF, HCGQT, LIPASE, CMET, BHBA #### Unless otherwise noted, all testing performed by [place] [phone] CLIA: [id number] Administrative Services Manager: Cristofer Perry M.D. Platelets #/vol (Bld) 274 K/mcL Normal 162-402 [facility] Comment on above: Performed By: #### C BCDIF, HCGQT, LIPASE, CMET, BHBA #### Unless otherwise noted, all testing performed by [place] [address] CLIA: [id number] Administrative Services Manager: Cristofer Perry M.D. RBC #/vol (Bld) 5.44 M/mcL High 3.7-5.0 [facility] Comment on above: Performed By: #### C BCDIF, HCGQT, LIPASE, CMET, BHBA #### Unless otherwise noted, all testing performed by [place] [address] CLIA: [id number] Administrative Services Manager: Cristofer Perry M.D. Segmented Neut % 57.7 % Normal [facility] Comment on above: Performed By: #### C BCDIF, HCGQT, LIPASE, CMET, BHBA #### Unless otherwise noted, all testing performed by [place] [address] CLIA: [id number] Administrative Services Manager: Cristofer Perry M.D. WBC #/vol (Bld) 7.8 K/mcL Normal 3.4-10.6 [facility] Comment on above: Performed By: #### C BCDIF, HCGQT, LIPASE, CMET, BHBA #### Unless otherwise noted, all testing performed by [place] [address] CLIA: [id number] Administrative Services Manager: Cristofer Perry M.D. Comprehensive Metabolic [facility] 02-01-2018 Albumin mass conc 3.8 g/dL Normal 3.2-5.2 [facility] Comment on above: Performed By: #### C BCDIF, HCGQT, LIPASE, CMET, BHBA #### Unless otherwise noted, all testing performed by [place] [address] CLIA: [id number] Administrative Services Manager: Cristofer Perry M.D. ALP enzyme act/vol 86 U/L Normal 40-140 [facility] Comment on above: Performed By: #### C BCDIF, HCGQT, LIPASE, CMET, BHBA #### Unless otherwise noted, all testing performed by [place] [address] CLIA: [id number] Administrative Services Manager: Cristofer Perry M.D. ALT enzyme act/vol 38 U/L Normal 14-65 [facility] Comment on above: Result Comment: This test result might be falsely depressed or falsely elevated on samples drawn from patients taking Sulfasalazine and Sulfapyridine. Venipuncture should occur prior to taking either of these drugs. Performed By: #### C BCDIF, HCGQT, LIPASE, CMET, BHBA #### Unless otherwise noted, all testing performed by [place] [address] CLIA: [id number] Administrative Services Manager: Cristofer Perry M.D. AST enzyme act/vol 11 U/L Normal 0-45 [facility] Comment on above: Result Comment: This test result might be falsely depressed or falsely elevated on samples drawn from patients taking Sulfasalazine and Sulfapyridine. Venipuncture should occur prior to taking either of these drugs. Performed By: #### C BCDIF, HCGQT, LIPASE, CMET, BHBA #### Unless otherwise noted, all testing performed by [place] [address] CLIA: [id number] Administrative Services Manager: Cristofer Perry M.D. Bilirubin mass conc 0.3 mg/dL Normal 0.3-1.2 [facility] Comment on above: Performed By: #### C BCDIF, HCGQT, LIPASE, CMET, BHBA #### Unless otherwise noted, all testing performed by [place] [address] CLIA: [id number] Administrative Services Manager: Cristofer Perry M.D. Calcium mass conc 9.0 mg/dL Normal 8.4-10.2 [facility] Comment on above: Performed By: #### C BCDIF, HCGQT, LIPASE, CMET, BHBA #### Unless otherwise noted, all testing performed by [place] [address] CLIA: [id number] Administrative Services Manager: Cristofer Perry M.D. Chloride molar conc 106 mmol/L Normal 98-108 [facility] Comment on above: Performed By: #### C BCDIF, HCGQT, LIPASE, CMET, BHBA #### Unless otherwise noted, all testing performed by [place] [address] CLIA: [id number] Administrative Services Manager: Cristofer Perry M.D. CO2 molar conc 20 mmol/L Low 21-32 [facility] Comment on above: Performed By: #### C BCDIF, HCGQT, LIPASE, CMET, BHBA #### Unless otherwise noted, all testing performed by [place] [address] CLIA: [id number] Administrative Services Manager: Cristofer Perry M.D. Creatinine mass conc 0.85 mg/dL Normal 0.40-1.10 [facility] Comment on above: Performed By: #### C BCDIF, HCGQT, LIPASE, CMET, BHBA #### Unless otherwise noted, all testing performed by [place] [address] CLIA: [id number] Administrative Services Manager: Cristofer Perry M.D. GFR/1.73 sq M predicted among blacks MDRD vol rate/area (S/P/Bld) mL/min/{1.73_m2} Normal [facility] Comment on above: Result Comment: Afri can [place]og[place]ese GFR Calc Performed By: #### C BCDIF, HCGQT, LIPASE, CMET, BHBA #### Unless otherwise noted, all testing performed by [place] [address] CLIA: [id number] Administrative Services Manager: Cristofer Perry M.D. GFR/1.73 sq M predicted among non-blacks MDRD vol rate/area (S/P/Bld) mL/min/{1.73_m2} [facility] Comment on above: Result Comment: Non- GFR [...] Unless otherwise noted, all testing performed by [place] [address] CLIA: [id number] Administrative Services Manager: Cristofer Perry M.D. Glucose mass conc 360 mg/dL High 70-99 [facility] Comment on above: Result Comment: This test result might be falsely depressed or falsely elevated on samples drawn from patients taking Sulfasalazine and Sulfapyridine. Venipuncture should occur prior to taking either of these drugs. Performed By: #### C BCDIF, HCGQT, LIPASE, CMET, BHBA #### Unless otherwise noted, all testing performed by [place] [address] CLIA: [id number] Administrative Services Manager: Cristofer Perry M.D. Potassium molar conc 3.5 mmol/L Normal 3.5-5.1 [facility] Comment on above: Performed By: #### C BCDIF, HCGQT, LIPASE, CMET, BHBA #### Unless otherwise noted, all testing performed by [place] [address] CLIA: [id number] Administrative Services Manager: Cristofer Perry M.D. Protein mass conc 8.2 g/dL High 6.0-8.0 [facility] Comment on above: Performed By: #### C BCDIF, HCGQT, LIPASE, CMET, BHBA #### Unless otherwise noted, all testing performed by [place] [address] CLIA: [id number] Administrative Services Manager: Cristofer Perry M.D. Sodium molar conc 137 mmol/L Normal 135-145 [facility] Comment on above: Performed By: #### C BCDIF, HCGQT, LIPASE, CMET, BHBA #### Unless otherwise noted, all testing performed by [place] [address] CLIA: [id number] Administrative Services Manager: Cristofer Perry M.D. Urea nitrogen mass conc 11 mg/dL Normal 8-25 [facility] Comment on above: Performed By: #### C BCDIF, HCGQT, LIPASE, CMET, BHBA #### Unless otherwise noted, all testing performed by [address], [place] [address] CLIA: [id number] Administrative Services Manager: Cristofer Perry M.D. Culture, Urineon 02-01-2018 Culture, Urine Test Name: Culture, Urine Culture Status: Final Culture Report: No significant growth. Micro Source: Urine Normal [facility] Comment on above: Performed By: #### C BCDIF, HCGQT, LIPASE, CMET, BHBA #### Unless otherwise noted, all testing performed by [place] [address] CLIA: [id number] Administrative Services Manager: Cristofer Perry M.D. Culture, Urine Test Name: Culture, Urine Culture Status: Final Culture Report: No Growth - Day 2 Micro Source: Urine Normal [facility] Comment on above: Performed By: #### C BCDIF, HCGQT, LIPASE, CMET, BHBA #### Unless otherwise noted, all testing performed by [place] [address] CLIA: [id number] Administrative Services Manager: Cristofer Perry M.D. HCG, Quantitativeon 02-02-20 18 HCG, Quantitative 4321 mIU/mL Normal [facility] Comment on above: Result Comment: HCG, Quant. Reference Range: [Units mIU/ml] Gestation Age Approx.HCG 0.2-1Week 5-50 1-2 Weeks 50-500 2-3 Weeks 100-5,000 3-4 Weeks 500-10,000 4-5 Weeks 1,000-50,000 6-8 Weeks 15,000-200,000 2-3 Months 10,000-100,000 Non- Females <5 Males <5 Performed By: #### C BCDIF, HCGQT, LIPASE, CMET, BHBA #### Unless otherwise noted, all testing performed by [place] [address] CLIA: [id number] Administrative Services Manager: Cristofer Perry M.D. Lipaseon 02-01-2018 Lipase enzyme act/vol 136 U/L Normal 73-393 [facility] Comment on above: Performed By: #### C BCDIF, HCGQT, LIPASE, CMET, BHBA #### Unless otherwise noted, all testing performed by [place] [address] CLIA: [id number] Administrative Services Manager: Cristofer Perry M.D. Urinalysis, Routineon 2017 Bacteria LM.HPF #/area (Urine sed) Rare Normal NS;RARE [facility] Comment on above: Performed By: #### U A #### Unless otherwise noted, all testing performed by [place] [address] CLIA: [id number] Administrative Services Manager: Cristofer Perry M.D. Bilirubin,Urine Negative Normal NEG;NEGATIVE [facility] Comment on above: Performed By: #### U A #### Unless otherwise noted, all testing performed by [place] [address] CLIA: [id number] Administrative Services Manager: Cristofer Perry M.D. Blood,Urine Negative Normal NEG;NEGATIVE [facility] Comment on above: Performed By: #### U A #### Unless otherwise noted, all testing performed by [place] [address] CLIA: [id number] Administrative Services Manager: Cristofer Perry M.D. Character Nom (U) Clear Normal [facility] Comment on above: Performed By: #### U A #### Unless otherwise noted, all testing performed by [address], [place] [address] CLIA: [id number] Administrative Services Manager: Cristofer Perry M.D. Color Nom (U) Straw Normal [facility] Comment on above: Performed By: #### U A #### Unless otherwise noted, all testing performed by [place] [address] CLIA: [id number] Administrative Services Manager: Cristofer Perry M.D. Glucose Ql (U) >= 500 High < 70 [facility] Comment on above: Performed By: #### U A #### Unless otherwise noted, all testing performed by [place] [address] CLIA: [id number] Administrative Services Manager: Cristofer Perry M.D. Ketone,Urine Trace Abnormal NEG;NEGATIVE [facility] Comment on above: Performed By: #### U A #### Unless otherwise noted, all testing performed by [place] [phone] CLIA: [id number] Administrative Services Manager: Cristofer Perry M.D. Leuk.Esterase,Urine Negative Normal Negative [facility] Comment on above: Performed By: #### U A #### Unless otherwise noted, all testing performed by [place] [address] CLIA: [id number] Administrative Services Manager: Cristofer Perry M.D. Nitrite,Urine Negative Normal NEG;NEGATIVE [facility] Comment on above: Performed By: #### U A #### Unless otherwise noted, all testing performed by [place] [address] CLIA: [id number] Administrative Services Manager: Cristofer Perry M.D. pH (U) 5.0 [pH] Normal 4.5-8.0 [facility] Comment on above: Performed By: #### U A #### Unless otherwise noted, all testing performed by [place] [address] CLIA: [id number] Administrative Services Manager: Cristofer Perry M.D. Protein mass conc (U) Negative Normal NEG;NEGATIVE O [facility] Comment on above: Performed By: #### U A #### Unless otherwise noted, all testing performed by [place] [address] CLIA: [id number] Administrative Services Manager: Cristofer Perry M.D. RBC LM.HPF #/area (Urine sed) /[HPF] Normal 0-5 [facility] Comment on above: Performed By: #### U A #### Unless otherwise noted, all testing performed by [place] [address] CLIA: [id number] Administrative Services Manager: Cristofer Perry M.D. Specific [place],Urine 1.031 High 1.003-1.029 [facility] Comment on above: Performed By: #### U A #### Unless otherwise noted, all testing performed by [place] [address] CLIA: [id number] Administrative Services Manager: Cristofer Perry M.D. Squamous Epithelial < 1 Normal 0-40 [facility] Comment on above: Performed By: #### U A #### Unless otherwise noted, all testing performed by [place] [address] CLIA: [id number] Administrative Services Manager: Cristofer Perry M.D. Urobilinogen,Urine < 2.0 Normal <2 [facility] Comment on above: Performed By: #### U A #### Unless otherwise noted, all testing performed by [place] [address] CLIA: [id number] Administrative Services Manager: Cristofer Perry M.D. WBC,Urine 1 /HPF Normal 0-5 [facility] Comment on above: Performed By: #### U A #### Unless otherwise noted, all testing performed by [place] [address] CLIA: [id number] Administrative Services Manager: Cristofer Perry M.D. Venous Blood Gason 8 Allens Test N/A Normal [facility] Comment on above: Performed By: #### V BG #### Unless otherwise noted, all testing performed by [place] [address] CLIA: [id number] Administrative Services Manager: Cristofer Perry M.D. Base Excess, Venous -3.0 mmol/L Low -2.0-2.0 [facility] Comment on above: Performed By: #### V BG #### Unless otherwise noted, all testing performed by [place] [address] CLIA: [id number] Administrative Services Manager: Cristofer Perry M.D. Blood Gas Instrument ;ED Normal [facility] Comment on above: Performed By: #### V BG #### Unless otherwise noted, all testing performed by [place] [address] CLIA: [id number] Administrative Services Manager: Cristofer Perry M.D. Carboxyhemoglobin, Venous 2.3 Normal [facility] Comment on above: Result Comment: Subu rban Non-Smoker <1.5% of total Hgb Smoker 1.5 - 5.0 % of total Hgb Heavy Smoker 5.0 - 9.0 % of total Hgb Performed By: #### V BG #### Unless otherwise noted, all testing performed by [place] [address] CLIA: [id number] Administrative Services Manager: Cristofer Perry M.D. DeOxyhemoglobin (HHB), Venous < 2.4 Normal [facility] Comment on above: Result Comment: noti fied at Value below reportable range < 2.4 Performed By: #### V BG #### Unless otherwise noted, all testing performed by [place] [address] CLIA: [id number] Administrative Services Manager: Cristofer Perry M.D. Drawn By (Bld Gas) lab Normal [facility] Comment on above: Performed By: #### V BG #### Unless otherwise noted, all testing performed by [place] [phone] CLIA: [id number] Administrative Services Manager: Cristofer Perry M.D. FIO2 21.0 % Normal 21-100 [facility] Comment on above: Performed By: #### V BG #### Unless otherwise noted, all testing performed by [place] [phone] CLIA: [id number] Administrative Services Manager: Cristofer Perry M.D. Hematocrit Volume Fraction (Bld) 42.4 % Normal 36-46 [facility] Comment on above: Performed By: #### V BG #### Unless otherwise noted, all testing performed by [place] [address] CLIA: [id number] Administrative Services Manager: Cristofer Peryr M.D. Hemoglobin mass conc (Bld) 95.8 % Normal 92-99 [facility] Comment on above: Performed By: #### V BG #### Unless otherwise noted, all testing performed by [place] [address] CLIA: [id number] Administrative Services Manager: Cristofer Perry M.D. Hemoglobin mass conc (Bld) 13.8 g/dL Normal 12.0-16.0 [facility] Comment on above: Performed By: #### V BG #### Unless otherwise noted, all testing performed by [place] [phone] CLIA: [id number] Administrative Services Manager: Cristofer Perry M.D. Hemoglobin mass conc (Bld) 99.3 % High 40-70 [facility] Comment on above: Result Comment: Valu e above reference range Performed By: #### V BG #### Unless otherwise noted, all testing performed by [place] [address] CLIA: [id number] Administrative Services Manager: Cristofer Perry M.D. Methemoglobin, Venous 1.3 Normal < 2.0 [facility] Comment on above: Performed By: #### V BG #### Unless otherwise noted, all testing performed by [place] [address] CLIA: [id number] Administrative Services Manager: Cristofer Perry M.D. O2 CT, Venous 8.4 mmol/L Normal [facility] Comment on above: Performed By: #### V BG #### Unless otherwise noted, all testing performed by [place] [address] CLIA: [id number] Administrative Services Manager: Cristofer Perry M.D. O2 Device Room Air Normal [facility] Comment on above: Performed By: #### V BG #### Unless otherwise noted, all testing performed by [place] [address] CLIA: [id number] Administrative Services Manager: Cristofer Perry M.D. pCO2 (temp conv.), Venous 38.3 mm Hg Low [address] [place] [address] Comment on above: Performed By: #### V BG #### Unless otherwise noted, all testing performed by [place] [phone] CLIA: [id number] Administrative Services Manager: Cristofer Perry M.D. pCO2, Venous 38.3 mm Hg Low [address] [place] [address] Comment on above: Result Comment: Valu e below reference range Performed By: #### V BG #### Unless otherwise noted, all testing performed by [place] [phone] CLIA: [id number] Administrative Services Manager: Cristofer Perry M.D. pH (temp conv.), Venous 7.367 Normal 7.32-7.42 [facility] Comment on above: Performed By: #### V BG #### Unless otherwise noted, all testing performed by [place] [phone] CLIA: [id number] Administrative Services Manager: Cristofer Perry M.D. pH, Venous 7.367 Normal 7.32-7.42 [facility] Comment on above: Performed By: #### V BG #### Unless otherwise noted, all testing performed by [place] [address] CLIA: [id number] Administrative Services Manager: Cristofer Perry M.D. pO2(temp conv.), Venous 149 mm Hg High [address] [place] [address] Comment on above: Performed By: #### V BG #### Unless otherwise noted, all testing performed by [place] [address] CLIA: [id number] Administrative Services Manager: Cristofer Perry M.D. pO2, Venous 149 mm Hg High [address] [place] [address] Comment on above: Performed By: #### V BG #### Unless otherwise noted, all testing performed by [place] [address] CLIA: [id number] Administrative Services Manager: Cristofer Perry M.D. Site (Bld Gas) OTHER Normal [facility] Comment on above: Performed By: #### V BG #### Unless otherwise noted, all testing performed by [place] [address] CLIA: [id number] Administrative Services Manager: Cristofer Perry M.D. VPO2 22.0 mmol/L Low 24-28 [facility] Comment on above: Performed By: #### V BG #### Unless otherwise noted, all testing performed by [place] [address] CLIA: [id number] Administrative Services Manager: Cristofer Perry M.D. iSTAT Pediatric Panelon 01-08 Chloride molar conc 105 mmol/L Normal 98-109 [facility] Comment on above: Performed By: #### E RPED #### Unless otherwise noted, all testing performed by [place] [address] CLIA: [id number] Administrative Services Manager: Cristofer Peryr M.D. CO2 molar conc 22 mmol/L Low 23-32 [facility] Comment on above: Performed By: #### E RPED #### Unless otherwise noted, all testing performed by [place] [phone] CLIA: [id number] Administrative Services Manager: Cristofer Perry M.D. Creatinine mass conc 0.4 mg/dL Normal 0.40-1.10 [facility] Comment on above: Performed By: #### E RPED #### Unless otherwise noted, all testing performed by [place] [address] CLIA: [id number] Administrative Services Manager: Cristofer Perry M.D. Glucose mass conc 259 mg/dL High 70-99 [facility] Comment on above: Performed By: #### E RPED #### Unless otherwise noted, all testing performed by [place] [address] CLIA: [id number] Administrative Services Manager: Cristofer Perry M.D. Hematocrit Volume Fraction (Bld) 38 % Normal 38.0-51.0 [facility] Comment on above: Performed By: #### E RPED #### Unless otherwise noted, all testing performed by [place] [address] CLIA: [id number] Administrative Services Manager: Cristofer Perry M.D. Hemoglobin mass conc (Bld) 12.9 g/dL Normal 12.0-17.0 [facility] Comment on above: Performed By: #### E RPED #### Unless otherwise noted, all testing performed by [place] [address] CLIA: [id number] Administrative Services Manager: Cristofer Perry M.D. Ionized Calcm 1.14 mmol/L Normal 1.12-1.32 [facility] Comment on above: Performed By: #### E RPED #### Unless otherwise noted, all testing performed by [place] [address] CLIA: [id number] Administrative Services Manager: Cristofer Perry M.D. Potassium molar conc 4.3 mmol/L Normal 3.5-4.9 [facility] Comment on above: Performed By: #### E RPED #### Unless otherwise noted, all testing performed by [place] [address] CLIA: [id number] Administrative Services Manager: Cristofer Perry M.D. Sodium molar conc 137 mmol/L Normal 136-141 [facility] Comment on above: Performed By: #### E RPED #### Unless otherwise noted, all testing performed by [place] [address] CLIA: [id number] Administrative Services Manager: Cristofer Perry M.D. Urea nitrogen mass conc 9 mg/dL Normal 8-26 [facility] Comment on above: Performed By: #### E RPED #### Unless otherwise noted, all testing performed by [place] [address] CLIA: [id number] Administrative Services Manager: Cristofer Perry M.D. Chloride molar conc 102 mmol/L Normal 98-109 [facility] Comment on above: Performed By: #### E RPED #### Unless otherwise noted, all testing performed by [place] [address] CLIA: [id number] Administrative Services Manager: Cristofer Perry M.D. CO2 molar conc 21 mmol/L Low 23-32 [facility] Comment on above: Performed By: #### E RPED #### Unless otherwise noted, all testing performed by [place] [phone] CLIA: [id number] Administrative Services Manager: Cristofer Perry M.D. Creatinine mass conc 0.4 mg/dL Normal 0.40-1.10 [facility] Comment on above: Performed By: #### E RPED #### Unless otherwise noted, all testing performed by [place] [phone] CLIA: [id number] Administrative Services Manager: Cristofer Perry M.D. Glucose mass conc 350 mg/dL High 70-99 [facility] Comment on above: Performed By: #### E RPED #### Unless otherwise noted, all testing performed by [place] [address] CLIA: [id number] Administrative Services Manager: Cristofer Perry M.D. Hematocrit Volume Fraction (Bld) 39 % Normal 38.0-51.0 [facility] Comment on above: Performed By: #### E RPED #### Unless otherwise noted, all testing performed by [place] [address] CLIA: [id number] Administrative Services Manager: Cristofer Perry M.D. Hemoglobin mass conc (Bld) 13.3 g/dL Normal 12.0-17.0 [facility] Comment on above: Performed By: #### E RPED #### Unless otherwise noted, all testing performed by [place] [phone] CLIA: [id number] Administrative Services Manager: Cristofer Perry M.D. Ionized Calcm 1.19 mmol/L Normal 1.12-1.32 [facility] Comment on above: Performed By: #### E RPED #### Unless otherwise noted, all testing performed by [place] [phone] CLIA: [id number] Administrative Services Manager: Cristofer Perry M.D. Potassium molar conc 3.8 mmol/L Normal 3.5-4.9 [facility] Comment on above: Performed By: #### E RPED #### Unless otherwise noted, all testing performed by [place] [phone] CLIA: [id number] Administrative Services Manager: rCistofer Perry M.D. Sodium molar conc 137 mmol/L Normal 136-141 [facility] Comment on above: Performed By: #### E RPED #### Unless otherwise noted, all testing performed by [place] [phone] CLIA: [id number] Administrative Services Manager: Cristofer Perry M.D. Urea nitrogen mass conc 10 mg/dL Normal 8-26 [facility] Comment on above: Performed By: #### E RPED #### Unless otherwise noted, all testing performed by [address], [place] [address] CLIA: [id number] Administrative Services Manager: Cristofer Perry M.D. EMERGENCY DEPARTMENTon 12-14 EMERGENCY DEPARTMENT [address] [address] HEALTH INFORMATION MANAGEMENT EMERGENCY DEPARTMENT : Signed Patient: MELISSA KAUR Acct:[id number] MRUN: [id number] : 1995 Sex: F Loc: ED ADM [...] Hx Psychosocial Problems: Yes Other Psychological PMH: "MOOD DISORDER" PER PT. - HEENT Hx Ear, Nose [...] Abuse: No Hx Suspected Abuse: No - [place]/Gender ID What is your current Gender Identity? [...] intact - Skin Skin Color: Present: Normal, [place] Skin exam: Present: warm, dry - Vital [...] sl.cloudy (Clear) Urine pH 5 Ur Specific [place] 1.020 (1.015-1.025) Urine Protein Negative (Negative) Urine [...] Provider: 12/14/17 18:55 - Dictation Amendments/Documentatio n: Carmine Document Only Electronically Generated By: SARAI PAULA MD Generated Date/Time: 12/14/171934 Electronically Signed By: SARAI PAULA MD Signed Date/Time 12/14/172023 Co Signed Electronically By: Co Signed Date/Time: CC: MILLY SINCLAIR Normal [facility] LURNCon 12-14-2017 ALBERTORKLAUS Urine Culture, Miles ne = Final reportPerformed at: CB - [facility] [id number] [place], [place] [id number] Director: Korey Corral PhD, Phone: [phone] REPORT: Previous result was SEE BELOW at [...] SPiperacillin/Tazobacta m STetracycline STobramycin STrimethoprim/Sulfa SPerformed at: [facility] [place] [id number] Director: Korey Corral PhD, Phone: [phone] Urine Culture = urine, void Normal [facility] Comment on above: Performed By: #### M IC2 ####[address] [address] (Urine)on 12-15-19 18 HCG ( test) Ql (U) Negative Normal Negative [facility] Comment on above: Performed By: #### P REGU ####[address] [address] UA w/Micrscopic-reflex cultu reon 12-14-2017 Appearance sl.cloudy Normal Clear [facility] Comment on above: Performed By: #### U AMRC ####[address] [address] Bacteria 2+ /hpf Normal 0 - 1+ [facility] Comment on above: Performed By: #### U AMRC ####[address] [address] Bilirubin Negative Normal Negative [facility] Comment on above: Performed By: #### U AMRC ####[address] [address] Blood 10 Abnormal Negative [facility] Comment on above: Performed By: #### U AMRC ####[address] [address] Casts ADJUNCT LATIN PROFESSOR Normal [facility] Comment on above: Performed By: #### U AMRC ####[address] [address] Casts. ADJUNCT LATIN PROFESSOR Normal [facility] Comment on above: Performed By: #### U AMRC ####[address] [address] Color yellow Normal Yellow [facility] Comment on above: Performed By: #### U AMRC ####[address] [address] Crystals ADJUNCT LATIN PROFESSOR Normal [facility] Comment on above: Performed By: #### U AMRC ####[address] [address] Crystals. ADJUNCT LATIN PROFESSOR Normal [facility] Comment on above: Performed By: #### U AMRC ####[address] [address] Epithelial Cells >15 Normal 0 - 6 [facility] Comment on above: Performed By: #### U AMRC ####[address] [address] Glucose 1000 Abnormal Negative [facility] Comment on above: Performed By: #### U AMRC ####[address] [address] Ketones Trace Normal Negative [facility] Comment on above: Performed By: #### U AMRC ####[address] [address] Leukocytes Esterase Trace Abnormal Negative [facility] Comment on above: Performed By: #### U AMRC ####[address] [address] Mucus ADJUNCT LATIN PROFESSOR Normal [facility] Comment on above: Performed By: #### U AMRC ####[address] [address] Nitrites Negative Normal Negative [facility] Comment on above: Performed By: #### U AMRC ####[address] [address] pH 5 Normal [facility] Comment on above: Performed By: #### U AMRC ####[address] [address] Protein Negative Normal Negative [facility] Comment on above: Performed By: #### U AMRC ####[address] [address] Specific [place] 1.020 Normal 1.015-1.025 [facility] Comment on above: Performed By: #### U AMRC ####[address] [address] Trichomonas ADJUNCT LATIN PROFESSOR Normal [facility] Comment on above: Performed By: #### U AMRC ####[address] [address] Urine, erythrocytes 2-5 Normal 0 - 2 [facility] Comment on above: Performed By: #### U AMRC ####[address] [address] Urobilinogen NORMAL Normal Normal-1.0 [facility] Comment on above: Performed By: #### U AMRC ####[address] [address] WBC 2-5 Normal 0 - 6 [facility] Comment on above: Performed By: #### U AMRC ####[facility] [place] [address] Yeast ADJUNCT LATIN PROFESSOR Normal [facility] Comment on above: Performed By: #### U AMRC ####[facility] [place], [place] [address] Other ADJUNCT LATIN PROFESSOR Normal [facility] Comment on above: Performed By: #### U AMRC ####[address] [address] Basic Metabolic Panelon 11-08 Anion gap 10.0 mmol/L Normal 6.0-18.0 [facility] Comment on above: Result Comment: CARSON BARKER NOTE:The calculated Anion Gap(AGAP) does not include Potassium. Performed By: #### 6 9405-9, 31694-8p0, 33316-3 ####[facility], [address], [place]. Calcium 9.2 mg/dL Normal 8.9-10.3 [facility] Comment on above: Performed By: #### 6 9405-9, 54939-8f3, 02394-0 ####[facility], [address] [place], [place]. Chloride 103 mmol/L Normal 98-107 [facility] Comment on above: Performed By: #### 6 9405-9, 56503-2l9, 05438-9 ####[facility], [address], [place]. CO2 26 mmol/L Normal 22-32 [facility] Comment on above: Performed By: #### 6 9405-9, 34426-3k5, 46407-2 ####[facility], [address], [place]. Creatinine 0.82 mg/dL Normal 0.66-1.30 [facility] Comment on above: Performed By: #### 6 9405-9, 40208-2j7, 24309-9 ####[facility], [address] [facility], [place], [place]. Glucose mass conc 178 mg/dL High 70-110 [place] Comment on above: Performed By: #### 6 9405-9, 89778-9y0, 21654-9 ####[facility], [address] [place], [place]. Potassium molar conc 3.5 mmol/L Low 3.6-5.1 [facility] Comment on above: Performed By: #### 6 9405-9, 18953-3n7, 88954-1 ####[facility], [address] [place], [place]. Sodium 139 mmol/L Normal 136-145 [facility] Comment on above: Performed By: #### 6 9405-9, 89939-5m5, 88391-1 ####[facility], [address] [place], [place]. Urea nitrogen 16 mg/dL Normal 8-20 [facility] Comment on above: Performed By: #### 6 9405-9, 22626-7c5, 81102-2 ####[facility], [address] [place], [place]. CBC with Differentialon 06-2 Basophils Auto #/vol (Bld) 0.3 % Normal 0.0-2.0 [facility] Comment on above: Performed By: #### 5 7021-8 ####[facility], [address] [place], [place]. Basophils Auto #/vol (Bld) 0.00 thou/mcL Normal 0.00-0.20 [facility] Comment on above: Performed By: #### 5 7021-8 ####[facility], [address] [place], [place]. Eosinophils 0.10 thou/mcL Normal 0.00-0.70 [facility] Comment on above: Performed By: #### 5 7021-8 ####[facility], [address], [place]. Eosinophils/100 leukocytes 1.3 % Normal 0.0-7.0 [facility] Comment on above: Performed By: #### 5 7021-8 ####[facility], [address], [place]. Erythrocyte distribution width Auto Ratio (RBC) 13.8 % Normal 11.0-14.8 [facility] Comment on above: Performed By: #### 70-8 ####[facility], [facility] [address]. Erythrocytes (RBC) 5.24 million/mcL High 3.80-5.10 [facility] Comment on above: Performed By: #### 7021-8 ####[facility], [facility] [address] [facility] [place], [place]. Hematocrit (HCT) 41.0 % Normal 35.0-45.0 [facility] Comment on above: Performed By: #### 7021-8 ####[facility], [facility] [address], [place]. Hemoglobin mass conc (Bld) 14.0 g/dL Normal 12.0-16.0 [facility] Comment on above: Performed By: #### 5 7021-8 ####[facility], [facility] [address], [place]. Lymphocytes 2.60 thou/mcL Normal 1.00-4.80 [facility] Comment on above: Performed By: #### 5 7021-8 ####[facility], [facility] [address] [facility]. Lymphocytes/100 leukocytes 31.2 % Normal 22.0-44.0 [facility] Comment on above: Performed By: #### 5 7021-8 ####[facility], [address] [place], [place]. MCH 26.8 Picograms Low 27.0-34.0 [facility] Comment on above: Performed By: #### 5 7021-8 ####[facility], [address] [place], [place]. MCHC mass conc (RBC) 34.2 g/dL Normal 32.0-36.0 [facility] Comment on above: Performed By: #### 5 7021-8 ####[facility], [address] [place], [place]. MCV 78.3 fL Low 80.0-97.0 [facility] Comment on above: Performed By: #### 5 7021-8 ####[facility], [address] [place], [place]. Monocytes 0.50 thou/mcL Normal 0.00-0.90 [facility] Comment on above: Performed By: #### 5 7021-8 ####[facility], [address] [place], [place]. Monocytes/100 leukocytes 6.0 % Normal 0.0-12.0 [facility] Comment on above: Performed By: #### 5 7021-8 ####[facility], [address] [place], [place]. Neutrophils 5.20 thou/mcL Normal 1.80-7.70 [facility] Comment on above: Performed By: #### 5 7021-8 ####[facility], [address] [place], [place]. Neutrophils/100 WBC Auto (Bld) 61.2 % Normal 40.0-70.0 [facility] Comment on above: Performed By: #### 5 7021-8 ####[facility], [address] [place], [place]. Platelet mean volume (PMV) 8.2 fL Normal 6.2-12.1 [facility] Comment on above: Performed By: #### 5 7021-8 ####[facility], [address], [place]. Platelets 265 thou/mcL Normal 142-424 [facility] Comment on above: Performed By: #### 5 7021-8 ####[facility], [address], [place]. WBC (Leukocytes) 8.4 thou/mcL Normal 4.6-10.2 [facility] Comment on above: Performed By: #### 5 7021-8 ####[facility], [address] [place], [place]. 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 Attending physician: Dr. Morales have performed a [...] normal excursion. No stridor or droolingCARDIAC: RRRSKIN: [place], warm, dryABD: Diffuse tenderness to palpation over [...] Result(s): Date Order Results 11/29/2017 20:14 Specific [place] Urine POCT N 1.030 11/29/2017 20:14 pH Urine POCT N 5 11/29/2017 20:17 Appearance Urine A HAZY 11/29/2017 20:17 Specific [place] Urine H 1.036 11/29/2017 20:17 Glucose Urine [...] adnexal mass.Immediate final results were provided per protocol.[place] thanks you for the opportunity to care for your patient. Workstation ID: [id number] - [id number] FOLLOW UP:FOLLOW-UP APPOINTMENTS: Provider: Specialty: Address: Date: Follow up with primary care provider 3 to 4 days Provider: Specialty: Address: Date: Return to Emergency Department Follow-up as needed Normal [facility] ED Pat Eduon 11-30-2017 ED Pat [place] [address] Emergency Department Discharge Instructions MELISSA BYRNE , [...] Servicios de Emergencia Name MELISSA BYRNE MRN ([facility])-[id number] PLEASE READ THE FOLLOWING REGARDING YOUR MEDICATIONS [...] doses are changed, or new medications (including xjhl-qzx-ksyuhzh products) are added. If you have any [...] TAKE UNTIL YOU TALK TO YOUR DOCTORNone [place] [address] [facility] Department Discharge Instructions Name: MELISSA BYRNE AMRITA Current Date: 11/29/2017 23:26:24 : 1995 12:00 PM Primary Physician: Physician, PCP Unknown We would like to thank you for choosing [facility] for your emergency medical needs. We [...] health of those around you. Call the [place] [employer] at 5-163-ATIP-[place] or the [place] [employer] at 3-501-BRW2343 for more information.High blood pressure: Your screening blood pressure today was 114 mm Hg / . Hypertension (high blood pressure) is blood pressure over 120/80. People with hypertension should contact their primary care provider within 30 days to follow up. Check your patient portal for additional blood pressure information.Immunizatio ns:Immunization is a way to protect against deadly infections. Discuss this with your child's travel trailer components assembler, or Public Health Department. Your family practice doctor can determine if you need pneumonia or flu vaccine. The [facility] can be reached at .Domestic Violence:If [...] suicide hotline, anytime day or night, at 3-797-023-ELZQ. Pharmacy Information:Below is a list of 24 hour pharmacies that we are aware of. We suggest that you call the specific pharmacy for their hours before traveling to a location. Hours may vary on holidays. [facility] [address] [address] [phone] [place] [address] [phone] [place] [address] [phone] [address] [phone] [place] [address] [phone] [place] [address] [phone] [place] [address] [phone] Take all medications as directed. If you need prescription assistance, contact the following agencies:?? [facility] for Prescription Assistance at or www.pparx.org?? [facility] Best Rx at or www.too.mebestrx.org?? www.[employer] is a site with many valuable coupons [...] cyst, if your caregiver is not a director airport operations.?? Get your yearly and recommended pelvic examinations [...] 05/26/2006 Document Re-Released: 05/14/2010ExitCare?? Patient Information ??2011 [employer].VIRUSES OR BACTERIA: WHAT'S GOT YOU SICK?Antibiotics only [...] patient education materials, prescriptions and follow-up instructions: Kenny, MELISSA BYRNE, have received the above patient education materials/instructions and have verbalized understanding: Date Time Patien t Signature Date Time Provid er Signature Normal [facility] ED Physician Noteson 018 ED [...] stabbing pelvic pains located left pelvis and "uterus" for the last 3 days. Intermittent. Not [...] urine and despite urine symptoms she states "I am prone to UTIs." She was wanting empiric antibiotics. This was [...] this documentation, there is a possibility of yvpar-x-hspp errors inherent to this technology that may [...] Immediate final results were provided per protocol. [place] thanks you for the opportunity to care [...] Emergency November 29, 2017 20:32 Ordered Normal [facility] ED Physician Notes PDF Normal [facility] GFRaaon 11-30-2017 eGFR (black) mL/min/{1.73_m2} Normal [facility] Comment on above: Result Comment: The MDRD equation has not been validated for those over 70 years, women, patients with serious co-morbid conditions, or with extremes of bodysize, muscle mass of nutritional status. Performed By: #### 6 9405-9, 88514-8a8, 83368-7 ####[facility], [address] [place], [place]. GFRbbon 11-30-2017 eGFR (non-black) mL/min/{1.73_m2} Normal [facility] Comment on above: Performed By: #### 6 9405-9, 69013-1v0, 21971-1 ####[facility], [address] [place], [place] 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 Attending physician: Dr. Shannon I have performed [...] No stridor or drooling CARDIAC: RRR SKIN: [place], warm, dry ABD: Diffuse tenderness to palpation [...] Use Tobacco No qualifying data available. Normal [facility] ED Physician Notes PDF Normal [facility] [place] Duplex Abd/Pelvis Retrope r [...] adnexal mass.Immediate final results were provided per protocol.[place] thanks you for the opportunity to care for your patient. Workstation ID: [id number] - [id number] FINAL REPORT Dictated By: Amado Gilman MD 11/29/2017 21:34Assigned Physician: Amado Gilman MDReviewed and Electronically Signed By: Amado Gilman MD 11/29/2017 21:39Transcribed by: TAMI 11/29/2017 21:34Technologist: RANI Normal [facility] US Pelvis Non-OB Completeon 11-29-2017 [...] adnexal mass.Immediate final results were provided per protocol.[place] thanks you for the opportunity to care for your patient. Workstation ID: [id number] - [id number] FINAL REPORT Dictated By: Amado Gilman MD 11/29/2017 21:34Assigned Physician: Amado Gilmna MDReviewed and Electronically Signed By: Amado Gilman MD 11/29/2017 21:39Transcribed by: TAMI 11/29/2017 21:34Technologist: RANI [facility] US Transvaginalon 11-29-2017 US Transvaginal [...] adnexal mass.Immediate final results were provided per protocol.[place] thanks you for the opportunity to care for your patient. Workstation ID: [id number] - [id number] FINAL REPORT Dictated By: Amado Gilman MD 11/29/2017 21:34Assigned Physician: Amado Gilman MDReviewed and Electronically Signed By: Amado Gilman MD 11/29/2017 21:39Transcribed by: TAMI 11/29/2017 21:34Technologist: NMP Normal [facility] Urinalysis Microscopicon Urine, bacteria in sediment RARE Abnormal NONE/HPF [facility] Comment on above: Performed By: #### 5 8077-9, 43371-0 ####[facility], [address], [place]. Urine, erythrocytes in sediment by area 1 /[HPF] Normal 0-5 [facility] Comment on above: Performed By: #### 5 8077-9, 64658-5 ####[facility], [address] [place], [place]. Urine, leukocytes in sedmiment 1 /[HPF] Normal 0-5 [facility] Comment on above: Performed By: #### 5 8077-9, 21713-4 ####[facility], [address] [place], [place]. Urine, mucus presence in sediment RARE Abnormal NONE/LPF [facility] Comment on above: Performed By: #### 5 8077-9, 53675-6 ####[facility], [address] [place], [place]. Urine, squamous cells in sediment MANY Abnormal FEW/LPF [facility] Comment on above: Performed By: #### 5 8077-9, 15749-2 ####[facility], [address] [place], [place]. Urinalysis with Microscopic Automatic with Reflexon 11-29-2017 Bilirubin Urine Negative Normal NEGATIVE [facility] Comment on above: Performed By: #### 5 8077-9, 54150-8 ####[facility], [address] [place], [place]. Nitrite Urine Positive Abnormal NEGATIVE [facility] Comment on above: Performed By: #### 5 8077-9, 54160-4 ####[facility], [address] [place], [place]. Urine, appearance HAZY Abnormal CLEAR [place] Comment on above: Performed By: #### 5 8077-9, 84653-4 ####[facility], [address] [place], [place]. Urine, color YELLOW Normal YELLOW [facility] Comment on above: Performed By: #### 5 8077-9, 98653-7 ####[facility], [address] [place], [place]. Urine, glucose presence 500MG/DL Abnormal NORMAL [facility] Comment on above: Performed By: #### 5 8077-9, 42860-8 ####[facility], [address] [place], [place]. Urine, hemoglobin presence Negative Normal NEGATIVE [facility] Comment on above: Performed By: #### 5 8077-9, 03012-7 ####[facility] [facility], [address] [place], [place]. Urine, ketones presence 5MG/DL Abnormal NEGATIVE [facility] Comment on above: Performed By: #### 5 8077-9, 26122-0 ####[facility], [address], [place]. Urine, leukocyte esterase presence Negative Normal NEGATIVE [facility] Comment on above: Performed By: #### 5 8077-9, 51753-4 ####[facility], [address], [place]. Urine, pH 5.0 [pH] Normal 4.5-8.0 [facility] Comment on above: Performed By: #### 5 8077-9, 53148-8 ####[facility], [address], [place]. Urine, protein Negative Normal NEGATIVE [facility] Comment on above: Performed By: #### 5 8077-9, 77915-4 ####[facility], [address], [place]. Urine, specific gravity 1.036 High 1.002-1.030 [facility] Comment on above: Performed By: #### 5 8077-9, 77946-9 ####[facility], [address], [place]. Urobilinogen Urine NORMAL Normal NORMAL [facility] Comment on above: Performed By: #### 5 8077-9, 64623-3 ####[facility] [facility], [address], [place]. [facility] Breast Uni Limited LTo n 11-20-2017 [place] US Breast Uni Limited LT DATE OF [...] follow-up for the patient's symptoms.BI-RADS Code 1-N: Negative.[place] thanks you for the opportunity to care for your patient. Workstation ID: [id number] - [id number] FINAL REPORT Dictated By: Mihir Real MD 11/20/2017 10:50Assigned Physician: Mihir Real MD AReviewed and Electronically Signed By: Mihir Real MD 11/20/2017 10:53Transcribed by: TAMI 11/20/2017 10:50Technologist: GISELA [facility] Antibody Screen Interpretati onon 11-15-2017 Interpretation and review of laboratory results Negative Normal NEGATIVE [facility] Comment on above: Performed By: #### 6 9405-9, 47163-9v7, 28750-0 ####[facility], [address], [place]. Basic Metabolic Panelon Anion gap 7.0 mmol/L Normal 6.0-18.0 [facility] Comment on above: Result Comment: CARSON BARKER NOTE:The calculated Anion Gap(AGAP) does not include Potassium. Performed By: #### 6 9405-9, 13082-9y5, 52458-4 ####[facility], [address] [facility] [place] [place]. Calcium 10.1 mg/dL Normal 8.9-10.3 [facility] Comment on above: Performed By: #### 6 9405-9, 31488-1c0, 78191-5 ####[facility], [address], [place]. Chloride 103 mmol/L Normal 98-107 [facility] Comment on above: Performed By: #### 6 9405-9, 49234-5u3, 12069-5 ####[facility], [address] [place], [place] CO2 28 mmol/L Normal 22-32 [facility] Comment on above: Performed By: #### 6 9405-9, 80166-3r0, 45189-1 ####[facility], [address] [place], [place]. Creatinine 0.53 mg/dL Low 0.66-1.30 [facility] Comment on above: Performed By: #### 6 9405-9, 91356-3y7, 81991-3 ####[facility], [address] [place], [place]. Glucose mass conc 215 mg/dL High 70-110 [place] Comment on above: Performed By: #### 6 9405-9, 24939-8n6, 13009-3 ####[facility], [address] [place], [place]. Potassium molar conc 3.9 mmol/L Normal 3.6-5.1 [facility] Comment on above: Performed By: #### 6 9405-9, 01709-0x9, 22846-1 ####[facility], [address] [place], [place]. Sodium 138 mmol/L Normal 136-145 [facility] Comment on above: Performed By: #### 6 9405-9, 13922-1o7, 85525-3 ####[facility], [address] [place], [place]. Urea nitrogen 10 mg/dL Normal 8-20 [facility] Comment on above: Performed By: #### 6 9405-9, 57575-6w2, 90716-9 ####[facility], [address], [place], [place]. Blood Type ABO and Rh(D)on 0 11-15-2017 ABO+Rh group Positive Normal [facility] Comment on above: Performed By: #### 6 9405-9, 79760-2w7, 50800-7 ####[facility], [address] [place], [place]. CBC with Differentialon 06-0 Basophils Auto #/vol (Bld) 0.10 thou/mcL Normal 0.00-0.20 [facility] Comment on above: Performed By: #### 6 9405-9, 97705-3h5, 22706-5 ####[facility], [address], [place], [place]. Basophils Auto #/vol (Bld) 0.6 % Normal 0.0-2.0 [facility] Comment on above: Performed By: #### 6 9405-9, 93330-8m1, 89586-2 ####[facility], [address], [place], [place]. Eosinophils 0.10 thou/mcL Normal 0.00-0.70 [facility] Comment on above: Performed By: #### 6 9405-9, 12550-5c1, 96611-0 ####[facility], [address] [place], [place]. Eosinophils/100 leukocytes 0.9 % Normal 0.0-7.0 [facility] Comment on above: Performed By: #### 6 9405-9, 82886-8d9, 46923-8 ####[facility], [address] [place], [place]. Erythrocyte distribution width Auto Ratio (RBC) 14.1 % Normal 11.0-14.8 [facility] Comment on above: Performed By: #### 6 9405-9, 27954-2k8, 75092-3 ####[facility], [address] [place], [place]. Erythrocytes (RBC) 5.51 million/mcL High 3.80-5.10 [facility] Comment on above: Performed By: #### 6 9405-9, 85317-0h6, 25217-0 ####[facility], [address] [place], [place]. Hematocrit (HCT) 43.1 % Normal 35.0-45.0 [facility] Comment on above: Performed By: #### 6 9405-9, 46379-2k5, 47374-2 ####[facility], [address] [place], [place]. Hemoglobin mass conc (Bld) 15.0 g/dL Normal 12.0-16.0 [facility] Comment on above: Performed By: #### 6 9405-9, 33200-5g3, 82856-6 ####[facility], [address] [place], [place]. Lymphocytes 2.20 thou/mcL Normal 1.00-4.80 [facility] Comment on above: Performed By: #### 6 9405-9, 50084-0u9, 62720-2 ####[facility], [address]. Lymphocytes/100 leukocytes 25.7 % Normal 22.0-44.0 [facility] Comment on above: Performed By: #### 6 9405-9, 62205-2s4, 30925-9 ####[facility], [address], [place]. MCH 27.2 Picograms Normal 27.0-34.0 [facility] Comment on above: Performed By: #### 6 9405-9, 42966-2x1, 34703-5 ####[facility], [address] [place], [place]. MCHC mass conc (RBC) 34.8 g/dL Normal 32.0-36.0 [facility] Comment on above: Performed By: #### 6 9405-9, 92003-4p0, 55191-1 ####[facility], [address], [place]. MCV 78.1 fL Low 80.0-97.0 [facility] Comment on above: Performed By: #### 6 9405-9, 98556-2u5, 78929-1 ####[facility], [address], [place]. Monocytes 0.40 thou/mcL Normal 0.00-0.90 [facility] Comment on above: Performed By: #### 6 9405-9, 75985-4z6, 32624-3 ####[facility], [address], [place]. Monocytes/100 leukocytes 5.1 % Normal 0.0-12.0 [facility] Comment on above: Performed By: #### 6 9405-9, 47867-1s0, 42183-5 ####[facility], [address], [place]. Neutrophils 5.70 thou/mcL Normal 1.80-7.70 [facility] Comment on above: Performed By: #### 6 9405-9, 79397-7x3, 33919-9 ####[facility], [address], [place]. Neutrophils/100 WBC Auto (Bld) 67.7 % Normal 40.0-70.0 [facility] Comment on above: Performed By: #### 6 9405-9, 53016-6m0, 09256-1 ####[facility], [address], [place]. Platelet mean volume (PMV) 7.8 fL Normal 6.2-12.1 [facility] Comment on above: Performed By: #### 6 9405-9, 73179-2a5, 48371-7 ####[facility], [address] [place], [place]. Platelets 264 thou/mcL Normal 142-424 [facility] Comment on above: Performed By: #### 6 9405-9, 60428-7y3, 47168-9 ####[facility], [address] [place], [place]. WBC (Leukocytes) 8.5 thou/mcL Normal 4.6-10.2 [facility] Comment on above: Performed By: #### 6 9405-9, 52751-6b6, 33428-2 ####[facility], [address], [place]. Depart Summaryon 11-15-2017 Depart Summary EMERGENCY DEPARTMENT DISCHARGE SUMMARYPATIENT NAME:MELISSA BYRNE MRN: COL)-[id number]: 22 Years SEX: Female PHONE:[phone]: 11/15/2017 4:07 PM : 1995 ATTENDING PHYSICIAN:Jamila Jama DO PCP: Verona Hilliard MD CHIEF COMPLAINT: Heavy vaginal bleeding with clots Allergies NKAProblems Active Mood disorder Diabetes DISCHARGE DIAGNOSIS: Menorrhagia DISCHARGE INSTRUCTIONS: Menorrhagia, Klcl-fj-Huyr ED PHYSICIAN DOCUMENTATION: History of Present IllnessPatient [...] myself to the patient as the physician learning support assistant. I informed the patient of attending [...] ? ? O2 Flow ? ? ?O2 Jcwhugoj04/09/18 16:00?-?-?- ?-/-?-? 100? -?Room air11/15/17 18:23?-?-?1 6?124/ [...] to be discharged home and follow-up with MOTION PICTURE COMMENTATOR or PCP. I believe the abdominal pain is likely due to IUD removal 3 days ago.? I discussed this case my attending physician, Dr. Jama, who agrees with workup and disposition.? I have reviewed assessment and plan with patient who verbalizes understanding. Patient will be discharged home and follow-up with OB-MECHANICAL DEVELOPMENT ENGINEER or PCP?provider in 72 hours. Patient is stable and agreeable to plan for discharge home.]? DISCHARGE PLAN:Condition: [Stable]. ?Disposition: [Medically cleared],? Discharged ?Date/Time:?[11-15-2017 18:58 ]?to Home?Prescriptions: NONE ?[ ]Limitations: NONEPatient Education:? Menorrhagia, Tyec-au-Qrpf? [ ]Follow up with:? Provider: ?Verona Hilliard MD?? ?Specialty:??Family Practice?? ?Address:??[address] [place] [id number] ? ?[phone] ? (1)?? ?Date:??1 to 2 days??? Comment: [...] Provider: Specialty: Address: Date: Verona Hilliard MD [address] [phone] (1) 1 to 2 days Comment: Call for an Appointment Provider: Specialty: Address: Date: Return to Emergency Department Follow-up as needed Comment: Reasons to return to the ED discussed with patient such as fever >101 degrees F, intractable nausea/vomiting, increasing pain, increased bleeding, lack of improvement of symptoms, new symptoms. Normal [facility] ED Pat Eduon 11-15-2017 ED Pat Edu [place] [address] Emergency Department Discharge Instructions MELISSA BYRNE , Please provide this information to your Primary Care/Specialist Name : CHAVEZ, MELISSA CROWE Current Date : 11/15/2017 19:17:32DOB : 1995 12:00 PM Primary Care Physician: Verona Hilliard MD Diagnosis : Menorrhagia Follow-Up Instructions:MELISSA BYRNE has been given these follow-up instructions: FOLLOW-UP APPOINTMENTS: Provider: Specialty: Address: Date: Verona Hilliard MD [address] [phone] (1) 1 to 2 days Comment: Call [...] Ordered Procedure(s) and Patient Education(s) : Menorrhagia, Xlch-fs-Cmme EMERGENCY SERVICES MEDICATION LISTLista de Medicaciones de los Servicios de Emergencia Name LAWANDA BYRNEIAN CROWE MRN (COL)-[id number] PLEASE READ THE FOLLOWING REGARDING YOUR MEDICATIONS [...] doses are changed, or new medications (including wirn-vnc-cfdthlc products) are added. If you have any [...] TAKE UNTIL YOU TALK TO YOUR DOCTORNone [place] [phone] [facility] Department Discharge Instructions Name: MELISSA BYRNE Current Date: 11/15/2017 19:17:32 : 1995 12:00 PM Primary Physician: Verona Hilliard MD We would like to thank you for choosing [facility] for your emergency medical needs. We [...] health of those around you. Call the [place] at 8-180-GWCI-USA or the [place] at 9-102-DSR-8764 for more information.High blood pressure: Your screening blood pressure today was 124 mm Hg / . Hypertension (high blood pressure) is blood pressure over 120/80. People with hypertension should contact their primary care provider within 30 days to follow up. Check your patient portal for additional blood pressure information.Immunizatio ns:Immunization is a way to protect against deadly infections. Discuss this with your child's travel trailer components assembler, or Public Health Department. Your family practice doctor can determine if you need pneumonia or flu vaccine. The [facility] Department can be reached at .Domestic Violence:If [...] suicide hotline, anytime day or night, at 8-673-310-RQGH. Pharmacy Information:Below is a list of 24 hour pharmacies that we are aware of. We suggest that you call the specific pharmacy for their hours before traveling to a location. Hours may vary on holidays. [facility] [place] [address] [place] [phone] [address] [address] [phone] [address] [phone] [place] [address] [phone] [place] [address] [phone] [place] [address] [phone] [place] [address] [phone] Take all medications as directed. If you need prescription assistance, contact the following agencies:?? [facility] for Prescription Assistance at or www.eBay.org?? [facility] at or www.[employer] Plusrx.org?? [employer] is a site with many valuable coupons [...] Document Reviewed: 11/25/2013[employer] Patient Education ?2016 [employer]><><><><><><><><>< ><><><><><><><><><><><> <><><><> Patient Visit Summary Signature MELISSA BYRNE has been given the following list of patient education materials, prescriptions and follow-up instructions: CHAVEZ Cox ALEXANDRIA JUSTINE, have received the above patient education materials/instructions and have verbalized understanding: Date Time Patien t Signature Date Time Provid er Signature Normal [facility] ED Physician Noteson 018 ED Physician Notes Chief Complaint Heav y vaginal bleeding with clotsED Assigned Provider/Time Time Seen: Veronica GOODWIN, Diana 11/15/2017 16:13History of Present Illness Patient is [...] myself to the patient as the physician learning support assistant. I informed the patient of attending [...] to be discharged home and follow-up with MOTION PICTURE COMMENTATOR or PCP. I believe the abdominal pain is likely due to IUD removal 3 days ago. I discussed this case my attending physician, Dr. Jama, who agrees with workup and disposition. I have reviewed assessment and plan with patient who verbalizes understanding. Patient will be discharged home and follow-up with OB-MECHANICAL DEVELOPMENT ENGINEER or PCP provider in 72 hours. Patient is stable and agreeable to plan for discharge home.] DISCHARGE PLAN: Condition: [Stable]. Disposition: [Medically cleared], Discharged Date/Time: [11-15-2017 18:58 ] toHome Prescriptions:NONE [ ] Limitations: NONE Patient Education: Menorrhagia, Nqpn-kr-Sdax [ ] Follow up with: Provider: Verona Hilliard MD Specialty: Family Practice Address: [address] [place] [phone] (1) Date: 1 to 2 days [...] Completed Urinalysis with Reflex Microscopic Jama DO, [facility] November 15, 2017 18:23 Completed U MICRO Jama DO, [facility] November 15, 2017 18:42 Completed Type and Screen Veronica GOODWIN Diana November 15, 2017 16:49 Ordered Normal [facility] ED Physician Notes PDF Normal [facility] GFRaaon 11-15-2017 eGFR (black) mL/min/{1.73_m2} Normal [facility] Comment on above: Result Comment: The MDRD equation has not been validated for those over 70 years, women, patients with serious co-morbid conditions, or with extremes of bodysize, muscle mass of nutritional status. Performed By: #### 6 9405-9, 65759-0t9, 97033-6 ####[facility], [address], [place]. GFRbbon 11-15-2017 eGFR (non-black) mL/min/{1.73_m2} Normal [facility] Comment on above: Performed By: #### 6 9405-9, 58191-7m1, 20106-3 ####[facility], [address], [place]. HCG Quantitativeon 8 HCG Qn m[IU]/mL Normal [facility] Comment on above: Result Comment: [...] arenot interchangeable. Patient results should not be "trended" usingvalues obtained with a different immunoassay method. Performed By: #### 6 9405-9, 15182-0s9, 75384-4 ####[facility], [address] [place]. Urinalysis Microscopicon Urine, bacteria in sediment RARE Abnormal NONE/HPF [facility] Comment on above: Performed By: #### 6 9405-9, 19077-1l8, 70032-6 ####[facility], [address]. Urine, erythrocytes in sediment by area 4126 /[HPF] High 0-5 [facility] Comment on above: Performed By: #### 6 9405-9, 05665-6s2, 92035-1 ####[facility], [address], [place]. Urine, leukocytes in sedmiment 191 /[HPF] High 0-5 [facility] Comment on above: Performed By: #### 6 9405-9, 21480-8u9, 00017-4 ####[facility], [address] Urine, mucus presence in sediment FEW Abnormal NONE/LPF [facility] Comment on above: Performed By: #### 6 9405-9, 40055-7v7, 02537-2 ####[facility], [address] Urine, squamous cells in sediment MODERATE Abnormal FEW/LPF [facility] Comment on above: Performed By: #### 6 9405-9, 85934-0p8, 74207-0 ####[facility], [address] [place], [place] Urinalysis with Microscopic Automaticon 11-15-2017 Bilirubin Urine Negative Normal NEGATIVE [facility] Comment on above: Performed By: #### 6 9405-9, 61773-9k2, 44700-4 ####[facility], [address] Nitrite Urine Negative Normal NEGATIVE [facility] Comment on above: Performed By: #### 6 9405-9, 40769-9m6, 30708-8 ####[facility], [address] [place], [place] Urine, appearance TURBID Abnormal CLEAR [place] Comment on above: Performed By: #### 6 9405-9, 57859-8v2, 06901-6 ####[facility], [address] [place], [place] Urine, color YELLOW Normal YELLOW [facility] Comment on above: Performed By: #### 6 9405-9, 42193-9c6, 38024-5 ####[facility], [address] [place], [place] Urine, glucose presence 500MG/DL Abnormal NORMAL [facility] Comment on above: Performed By: #### 6 9405-9, 96906-6z5, 24662-1 ####[facility], [address] [place], [place] Urine, hemoglobin presence 300/UL Abnormal NEGATIVE [facility] Comment on above: Performed By: #### 6 9405-9, 13958-0z2, 34602-0 ####[facility], [address] [place], [place] Urine, ketones presence 5MG/DL Abnormal NEGATIVE [facility] Comment on above: Performed By: #### 6 9405-9, 75938-4q4, 76549-8 ####[facility], [address] [place], [place] Urine, leukocyte esterase presence 25/UL Abnormal NEGATIVE [facility] Comment on above: Performed By: #### 6 9405-9, 81714-4v4, 12538-3 ####[facility], [address] [place], [place] Urine, pH 6.0 [pH] Normal 4.5-8.0 [facility] Comment on above: Performed By: #### 6 9405-9, 05908-3m2, 71942-4 ####[facility], [address] [place], [place] Urine, protein 100 mg/dL Abnormal NEGATIVE [facility] Comment on above: Performed By: #### 6 9405-9, 89390-3d4, 46673-1 ####[facility], [address] [place], [place]. Urine, specific gravity 1.026 Normal 1.002-1.030 [facility] Comment on above: Performed By: #### 6 9405-9, 74459-5h7, 29829-8 ####[facility], [address] [place], [place]. Urobilinogen Urine NORMAL Normal NORMAL [facility] Comment on above: Performed By: #### 6 9405-9, 73415-3w9, 32305-8 ####[facility], [address] [place], [place]. ED Physician Noteson 018 ED Physician Notes Chief Complaint nauseaED Assigned Provider/Time Time Seen: Poncho El / 10/09/2017 18:37History of Present Illness I have introduced myself as a Physician Tanbark Laborer and informed the patient of the supervising/collaborati [...] PLACED: Laboratory POC Urinalysis Manual (CO) Priti WEBSTER, [facility] October 09, 2017 18:34 Completed POC Urine Test (CO) [facility] 09, 2017 18:34 Completed Urinalysis with Reflex Microscopic Reynaldo GOODWIN Poncho Gonzalez October 09, 2017 18:44 Completed BMP (Basic Metabolic Panel) Reynaldo GOODWIN [facility] October 09, 2017 18:44 Completed CBC with Differential Reynaldo [facility] October 09, 2017 18:44 Completed Lipase Reynaldo GOODWIN [facility] October 09, 2017 18:44 Completed Hepatic Function Panel Reynaldo BUD[facility] October 09, 2017 18:44 Completed U MICRO Reynaldo GOODWIN [facility] October 09, 2017 19:28 Completed GFRAF Reynaldo GOODWIN [facility] October 09, 2017 19:32 Completed GFRNAF Reynaldo GOODWIN [facility] October 09, 2017 19:32 Completed Normal [facility] ED Physician Notes PDF Normal [facility] Basic Metabolic Panelon 05-0 Anion gap 12.0 mmol/L Normal 6.0-18.0 [facility] Comment on above: Result Comment: CARSON BARKER NOTE:The calculated Anion Gap(AGAP) does not include Potassium. Performed By: #### 6 9405-9, 80257-8z2, 89961-3 ####[facility], [address], [place]. Calcium 10.2 mg/dL Normal 8.9-10.3 [facility] Comment on above: Performed By: #### 6 9405-9, 64639-7p2, 27697-7 ####[facility], [address], [place]. Chloride 102 mmol/L Normal 98-107 [facility] Comment on above: Performed By: #### 6 9405-9, 50910-5q3, 45899-7 ####[facility], [address] [place], [place]. CO2 23 mmol/L Normal 22-32 [facility] Comment on above: Performed By: #### 6 9405-9, 68355-9e5, 25443-7 ####[facility], [address], [place]. Creatinine 0.84 mg/dL Normal 0.66-1.30 [facility] Comment on above: Performed By: #### 6 9405-9, 70134-7q7, 02968-8 ####[facility], [address], [place]. Glucose mass conc 252 mg/dL High 70-110 [place] Comment on above: Performed By: #### 6 9405-9, 15984-7p6, 33834-1 ####[facility], [address] [place] [address]. Potassium molar conc 3.6 mmol/L Normal 3.6-5.1 [facility] Comment on above: Performed By: #### 6 9405-9, 82481-4f0, 79978-2 ####[facility], [address] [place] [address]. Sodium 137 mmol/L Normal 136-145 [facility] Comment on above: Performed By: #### 6 9405-9, 94070-5r0, 37930-6 ####[facility], [address] [place] [address]. Urea nitrogen 15 mg/dL Normal 8-20 [facility] Comment on above: Performed By: #### 6 9405-9, 23987-9f5, 56922-7 ####[facility], [address], [place]. CBC with Differentialon 05-0 -2018 Basophils Auto #/vol (Bld) 0.10 thou/mcL Normal 0.00-0.20 [facility] Comment on above: Performed By: #### 6 9405-9, 88121-6s0, 39704-9 ####[facility], [address] [place], [place]. Basophils Auto #/vol (Bld) 0.7 % Normal 0.0-2.0 [facility] Comment on above: Performed By: #### 6 9405-9, 50816-1v6, 41791-1 ####[facility], [address] [place], [place]. Eosinophils 0.20 thou/mcL Normal 0.00-0.70 [facility] Comment on above: Performed By: #### 6 9405-9, 61591-2t9, 98562-2 ####[facility], [address], [place]. Eosinophils/100 leukocytes 1.8 % Normal 0.0-7.0 [facility] Comment on above: Performed By: #### 6 9405-9, 25128-5l0, 35128-0 ####[facility], [address] [place], [place]. Erythrocyte distribution width Auto Ratio (RBC) 15.0 % High 11.0-14.8 [facility] Comment on above: Performed By: #### 6 9405-9, 11462-8k1, 83582-8 ####[facility], [address] [place], [place]. Erythrocytes (RBC) 5.60 million/mcL High 3.80-5.10 [facility] Comment on above: Performed By: #### 6 9405-9, 73811-8u2, 41012-0 ####[facility], [address] [place], [place]. Hematocrit (HCT) 43.9 % Normal 35.0-45.0 [facility] Comment on above: Performed By: #### 6 9405-9, 36744-3y2, 03943-4 ####[facility], [address] [place], [place]. Hemoglobin mass conc (Bld) 14.8 g/dL Normal 12.0-16.0 [facility] Comment on above: Performed By: #### 6 9405-9, 26045-7u7, 97396-0 ####[facility], [address] [place], [place]. Lymphocytes 2.50 thou/mcL Normal 1.00-4.80 [facility] Comment on above: Performed By: #### 6 9405-9, 52330-1k7, 66129-7 ####[facility], [address] [facility] [place]. Lymphocytes/100 leukocytes 29.2 % Normal 22.0-44.0 [facility] Comment on above: Performed By: #### 6 9405-9, 91130-4p9, 72205-3 ####[facility], [address] [place], [place]. MCH 26.4 Picograms Low 27.0-34.0 [facility] Comment on above: Performed By: #### 6 9405-9, 64168-2q0, 31446-6 ####[facility], [address] [place], [place]. MCHC mass conc (RBC) 33.6 g/dL Normal 32.0-36.0 [facility] Comment on above: Performed By: #### 6 9405-9, 63837-8j7, 34265-7 ####[facility], [address] [place], [place]. MCV 78.4 fL Low 80.0-97.0 [facility] Comment on above: Performed By: #### 6 9405-9, 68035-5j6, 21396-3 ####[facility], [address] [place], [place]. Monocytes 0.40 thou/mcL Normal 0.00-0.90 [facility] Comment on above: Performed By: #### 6 9405-9, 47297-0o9, 71081-4 ####[facility], [address], [place]. Monocytes/100 leukocytes 4.1 % Normal 0.0-12.0 [facility] Comment on above: Performed By: #### 6 9405-9, 75993-2o7, 39174-7 ####[facility], [address], [place]. Neutrophils 5.50 thou/mcL Normal 1.80-7.70 [facility] Comment on above: Performed By: #### 6 9405-9, 33444-1f0, 05760-8 ####[facility], [address] [place]. Neutrophils/100 WBC Auto (Bld) 64.2 % Normal 40.0-70.0 [facility] Comment on above: Performed By: #### 6 9405-9, 09613-2d1, 32510-8 ####[facility], [address] [place]. Platelet mean volume (PMV) 8.0 fL Normal 6.2-12.1 [facility] Comment on above: Performed By: #### 6 9405-9, 66870-4h5, 14282-0 ####[facility], [address]. Platelets 293 thou/mcL Normal 142-424 [facility] Comment on above: Performed By: #### 6 9405-9, 48484-5u3, 24903-8 ####[facility], [address]. WBC (Leukocytes) 8.5 thou/mcL Normal 4.6-10.2 [facility] Comment on above: Performed By: #### 6 9405-9, 67946-7g2, 69615-1 ####[facility], [address], [place]. Depart Summaryon 10-09-2017 Depart Summary EMERGENCY DEPARTMENT DISCHARGE SUMMARYPATIENT NAME:MELISSA BYRNE : 22 Years SEX: Female PHONE:[id number]: 10/09/2017 6:00 PM : 1995 ATTENDING PHYSICIAN:Josie [...] Result(s): Date Order Results 10/09/2017 18:35 Specific [place] Urine POCT N 1.030 10/09/2017 18:35 pH Urine POCT N 5 10/09/2017 18:35 Urobilinogen Urine POCT N 0 mg/dL 10/09/2017 18:45 Appearance Urine A TURBID 10/09/2017 18:45 Specific [place] Urine H 1.032 10/09/2017 18:45 Glucose Urine [...] Address: Date: Verona Hilliard MD Family Practice [address] [place] [address] [phone] (1) 1 to 2 days Normal [facility] ED Pat Rocio 10-09-2017 ED Pat [place] [address] Emergen Department Discharge Instructions MELISSA BYRNE , Please provide this information to your Primary Care/Specialist Name : MELISSA BYRNE Current Date : 10/09/2017 20:40:15DOB : 1995 12:00 PM Primary Care Physician: Verona Hilliard MD Diagnosis : Acute UTI; Epigastric pain Follow-Up Instructions:MELISSA BYRNE has been given these follow-up instructions: FOLLOW-UP APPOINTMENTS: Provider: Specialty: Address: Date: Verona Hilliard MD Family Practice [address] [place] [address] [phone] (1) 1 to 2 days Laboratory Orders: [...] Servicios de Emergencia Name MELISSA BYRNE MRN (COL)-[id number] PLEASE READ THE FOLLOWING REGARDING YOUR MEDICATIONS [...] doses are changed, or new medications (including yxpm-fio-dbpbsmr products) are added. If you have any questions, check with your doctor. Por la informaci??n disponible ai martinez visita, las instrucciones de medicaci??n aparecen debajo. Favor de continuar tomando las medicaciones Ud. bernadette?? antes de martinez visita por lo menos que hay cambios. Favor de compartir esta informaci??n con mratinez medico. Lleva sandra lista de medicaciones consigo [...] TAKE UNTIL YOU TALK TO YOUR DOCTORNone [place] [address] [facility] Department Discharge Instructions Name: MELISSA BYRNE Current Date: 10/09/2017 20:40:15 : 1995 12:00 PM Primary Physician: Verona Hilliard MD We would like to thank you for choosing [facility] for your emergency medical needs. We [...] health of those around you. Call the [place] [employer] at 4-919-KPYQ-USA or the [place] at 9-908-AJI-6622 for more information.High blood pressure: Your screening blood pressure today was 114 mm Hg / . Hypertension (high blood pressure) is blood pressure over 120/80. People with hypertension should contact their primary care provider within 30 days to follow up. Check your patient portal for additional blood pressure information.Immunizatio ns:Immunization is a way to protect against deadly infections. Discuss this with your child's travel trailer components assembler, or Public Health Department. Your family practice doctor can determine if you need pneumonia or flu vaccine. The [facility] Department can be reached at .Domestic Violence:If [...] suicide hotline, anytime day or night, at 4-905-233-NCMA. Pharmacy Information:Below is a list of 24 hour pharmacies that we are aware of. We suggest that you call the specific pharmacy for their hours before traveling to a location. Hours may vary on holidays. [facility] [address] [place] [address] [phone] [address] [phone] [address] [phone] [address] [phone] [place] [address] [phone] [place] [address] [phone] [place] [address] [phone] Take all medications as directed. If you need prescription assistance, contact the following agencies:?? Partnership for Prescription Assistance at or www.pparx.org?? [facility] Best [facility] at or www.Cequintstrx.News in Shorts?? [employer]SustainXRxEDMdesigner is a site with many valuable coupons [...] alleviate any discomfort you are experiencing:???Only take spot-tfa-wkjhlwc or prescription medicines as directed by your [...] Document Reviewed: 02/02/2014Francisca Interactive Patient Education ?2016 [employer].Obstetrics and GynecologyUrinary Tract InfectionUrinary tract infections (UTIs) [...] Document Reviewed: 07/03/2012Francisca Interactive Patient Education ?2016 [employer].VIRUSES OR BACTERIA: WHAT'S GOT YOU SICK?Antibiotics only [...] patient education materials, prescriptions and follow-up instructions: IMARGOTER MELISSA CROWE, have received the above patient education materials/instructions and have verbalized understanding: Date Time Patien t Signature Date Time Provid er Signature Normal [facility] GFRaaon 10-09-2017 eGFR (black) mL/min/{1.73_m2} Normal [facility] Comment on above: Result Comment: The MDRD equation has not been validated for those over 70 years, women, patients with serious co-morbid conditions, or with extremes of bodysize, muscle mass of nutritional status. Performed By: #### 6 9405-9, 31578-3l9, 67419-4 ####[facility], [address], [place]. GFRbbon 10-09-2017 eGFR (non-black) mL/min/{1.73_m2} Normal [facility] Comment on above: Performed By: #### 6 9405-9, 73488-4q4, 06246-6 ####[facility], [address] [place], [place]. Hepatic Function Panelon Alanine aminotransferase (ALT) 45 Units/L Normal 14-63 [facility] Comment on above: Performed By: #### 6 9405-9, 63149-0j9, 42405-1 ####[facility], [address] [place], [place]. Albumin 4.6 g/dL Normal 3.5-4.8 [facility] Comment on above: Performed By: #### 6 9405-9, 62016-6k0, 16714-6 ####[facility], [address] [place], [place]. Alkaline phosphatase (ALP) 81 Units/L Normal 32-91 [facility] Comment on above: Performed By: #### 6 9405-9, 95809-9q9, 64112-9 ####[facility], [address] [place], [place]. Aspartate aminotransferase (AST) 23 Units/L Normal 15-41 [facility] Comment on above: Performed By: #### 6 9405-9, 69517-0p0, 15575-7 ####[facility], [address] [place], [place]. Bilirubin (direct) 0.0 mg/dL Low 0.1-0.5 [facility] Comment on above: Performed By: #### 6 9405-9, 29824-4z3, 76668-0 ####[facility], [address] [place], [place]. Bilirubin (total) 0.4 mg/dL Normal 0.3-1.2 [place] Comment on above: Performed By: #### 6 9405-9, 65336-7y2, 53875-9 ####[facility], [address] [place], [place]. Bilirubin.indirect mass conc 0.4 mg/dL Normal 0.0-1.0 [facility] Comment on above: Performed By: #### 6 9405-9, 34016-3w3, 16912-1 ####[facility], [address] [place]. Protein 7.9 g/dL Normal 6.1-7.9 [facility] Comment on above: Performed By: #### 6 9405-9, 70941-8u7, 83568-2 ####[facility], [address] [place], [place]. Lipaseon 10-09-2017 Lipase 13 Units/L Low 22-51 [facility] Comment on above: Performed By: #### 6 9405-9, 84656-8w1, 18909-5 ####[facility], [address] [place], [place]. Urinalysis Microscopicon Urine, erythrocytes in sediment by area 5 /[HPF] Normal 0-5 [facility] Comment on above: Performed By: #### 6 9405-9, 91296-9d8, 99364-1 ####[facility], [address] [place], [place]. Urine, leukocytes in sedmiment 6 /[HPF] High 0-5 [facility] Comment on above: Performed By: #### 6 9405-9, 27399-7x1, 33707-7 ####[facility], [address] [place], [place]. Urine, mucus presence in sediment RARE Abnormal NONE/LPF [facility] Comment on above: Performed By: #### 6 9405-9, 76324-7y6, 82466-1 ####[facility], [address] [place], [place]. Urine, squamous cells in sediment MANY Abnormal FEW/LPF [facility] Comment on above: Performed By: #### 6 9405-9, 65874-7e3, 01494-6 ####[facility], [address] [place], [place]. Urinalysis with Microscopic Automaticon 10-09-2017 Bilirubin Urine Negative Normal NEGATIVE [facility] Comment on above: Performed By: #### 6 9405-9, 06444-6p5, 09227-7 ####[facility], [address]. Nitrite Urine Negative Normal NEGATIVE [facility] Comment on above: Performed By: #### 6 9405-9, 79784-5k5, 81795-2 ####[facility]ON [facility], [address] [place], [place]. Urine, appearance TURBID Abnormal CLEAR [place] Comment on above: Performed By: #### 6 9405-9, 78843-4q4, 19222-9 ####[facility], [address]. Urine, color PACHECO Normal YELLOW [facility] Comment on above: Performed By: #### 6 9405-9, 42755-1m2, 85823-7 ####[facility], [address] [place], [place]. Urine, glucose presence 150MG/DL Abnormal NORMAL [facility] Comment on above: Performed By: #### 6 9405-9, 01241-4j6, 32420-8 ####[facility]ON [facility], [address] [place], [place]. Urine, hemoglobin presence 10/UL Abnormal NEGATIVE [facility] Comment on above: Performed By: #### 6 9405-9, 98990-8m9, 88057-5 ####[facility], [address] [place], [place]. Urine, ketones presence 5MG/DL Abnormal NEGATIVE [facility] Comment on above: Performed By: #### 6 9405-9, 65102-6e0, 71204-3 ####[facility], [address], [place]. Urine, leukocyte esterase presence 25/UL Abnormal NEGATIVE [facility] Comment on above: Performed By: #### 6 9405-9, 93637-0t3, 35802-7 ####[facility], [address] [facility], [place], [place]. Urine, pH 5.0 [pH] Normal 4.5-8.0 [facility] Comment on above: Performed By: #### 6 9405-9, 55323-9w5, 32761-3 ####[facility], [address] [place], [place]. Urine, protein 30 mg/dL Abnormal NEGATIVE [facility] Comment on above: Performed By: #### 6 9405-9, 40418-0a7, 63809-8 ####[facility], [address] [place], [place]. Urine, specific gravity 1.032 High 1.002-1.030 [facility] Comment on above: Performed By: #### 6 9405-9, 03900-1k4, 02254-5 ####[facility], [address] [place] [address]. Urobilinogen Urine NORMAL Normal NORMAL [facility] Comment on above: Performed By: #### 6 9405-9, 58031-5o1, 39033-4 ####[facility], [address] [facility] [place] ED Physician Noteson 018 ED Physician Notes Chief Complaint Abdominal pain/Vaginal bleedED Assigned Provider/Time Time Seen: Poncho El / 09/27/2017 20:20History of Present Illness I have reviewed the nurse's note. I introduced myself as the Physician Tanbark Laborer and informed the patient of the supervising [...] today is wanting her. Patient has an MOTION PICTURE COMMENTATOR physician who reside at [facility]. Patient is to look for a new one here in [place]. Patient denies any nausea or vomiting. No diarrhea. No urinary related symptoms. 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 No need for [...] El September 27, 2017 21:34 CompletedDone Normal [facility] ED Physician Notes PDF Normal [facility] Depart Summaryon 09-28-2017 Depart Summary EMERGENCY DEPARTMENT DISCHARGE SUMMARYPATIENT NAME:MELISSA BYRNE MRN: (COL)-[id number]: 22 Years SEX: Female PHONE:[id number]: 09/27/2017 7:06 PM : 1995 ATTENDING PHYSICIAN:Raphael Cabezas MD PCP: Verona Hilliard MD CHIEF COMPLAINT: Abdominal pain/Vaginal bleed Allergies NKAProblems Active Mood disorder Diabetes DISCHARGE DIAGNOSIS: Dysfunctional uterine bleeding; Pelvic pain DISCHARGE INSTRUCTIONS: Dysfunctional Uterine Bleeding; Pelvic Pain, Female ED PHYSICIAN DOCUMENTATION: History of Present IllnessI have reviewed the nurse's note. ? I introduced myself as the Physician Tanbark Laborer and informed the patient of the supervising [...] started today?is wanting her. Patient has an MOTION PICTURE COMMENTATOR physician who reside at [facility]. Patient?is to look for a new one here in?[place]. Patient?denies any nausea or vomiting. No diarrhea. [...] Patient will be advised to follow-up with [facility]ION PICTURE COMMENTATOR clinic for further evaluation.?No need for any [...] Result(s): Date Order Results 09/27/2017 19:38 Specific [place] Urine POCT N 1.020 09/27/2017 19:38 pH [...] adnexal mass. No ovarian torsion.IUD in the uterus.[place] thanks you for the opportunity to care for your patient. Workstation ID: [id number] - [id number] FOLLOW UP:FOLLOW-UP APPOINTMENTS: Provider: Specialty: Address: Date: Verona Hilliard MD Family Practice [address] [place] [address] [phone] (1) Follow-up as needed Provider: Specialty: Address: Date: [facility] ([address] [address] () Follow-up as needed Comment: Follow-up with [facility] MOTION PICTURE COMMENTATOR also be further evaluated. Call Friday and make an appointment. Normal [facility] ED Pat Eduon 09-28-2017 ED [address] [address] Emergency Department Discharge Instructions MELISSA [...] Date: Verona Hilliard MD Family Practice [address] [phone] (5) Follow-up as needed Provider: Specialty: Address: Date: [facility] ([place]) [address] [place] [address] () Follow-up as needed Comment: Follow-up with [facility]CT[facility] COM[facility] also be further evaluated. Call Friday and [...] Servicios de Emergencia Name MELISSA BYRNE MRN (COL)-[id number] PLEASE READ THE FOLLOWING REGARDING YOUR MEDICATIONS [...] doses are changed, or new medications (including ynxa-brs-sxckrbo products) are added. If you have any [...] TAKE UNTIL YOU TALK TO YOUR DOCTORNone [place] [address] Emergency Department Discharge Instructions Name: MELISSA BYRNE Current Date: 09/27/2017 23:44:47 : 1995 12:00 PM Primary Physician: Verona Hilliard MD We would like to thank you for choosing [facility] for your emergency medical needs. We [...] health of those around you. Call the [place] [employer] at 6-586-WSYE-USA or the [place] [employer] at 5-924-FJI-2526 for more information.High blood pressure: Your screening blood pressure today was 118 mm Hg / . Hypertension (high blood pressure) is blood pressure over 120/80. People with hypertension should contact their primary care provider within 30 days to follow up. Check your patient portal for additional blood pressure information.Immunizatio ns:Immunization is a way to protect against deadly infections. Discuss this with your child's travel trailer components assembler, or Public Health Department. Your family practice doctor can determine if you need pneumonia or flu vaccine. The [facility] Department can be reached at .Domestic Violence:If [...] suicide hotline, anytime day or night, at 1-985-602-XUTL. Pharmacy Information:Below is a list of 24 hour pharmacies that we are aware of. We suggest that you call the specific pharmacy for their hours before traveling to a location. Hours may vary on holidays. [facility] [address] [place] [address] [phone] [place] [address] [phone] [address] [phone] [place] [address] [phone] [place] [address] [phone] [place] [address] [phone] [place] [address] [phone] Take all medications as directed. If you need prescription assistance, contact the following agencies:?? Partnership for Prescription Assistance at or www.pparx.org?? [facility] Best [facility] at or www.too.mebestrx.org?? www.SustainX[employer] is a site with many valuable coupons [...] or later than usual. They may be basketballs and footballs reverser, have blood clots or be heavier. You [...] change or switch medicines without consulting your caregiver.???terminal superintendent heavy bleeding may result in iron deficiency. [...] Released: 05/23/2001 Document Revised: 08/17/2012 Document Reviewed: 08/21/2015Albanevier Interactive Patient Education ?2016 [employer].Pelvic Pain, FemaleFemale pelvic pain can be caused [...] vaginal discharge.???Blood tests. HOME CARE INSTRUCTIONS???Only take rvjt-tfg-gbbhsas or prescription medicines for pain, discomfort, or [...] Document Reviewed: 09/14/2012Francisca Interactive Patient Education ?2016 [employer]><><><><><><><><>< ><><><><><><><><><><><> <><><><> Patient Visit Summary Signature MELISSA BYRNE has been given the following list of patient education materials, prescriptions and follow-up instructions: CHAVEZ Cox ALEXANDRIA JUSTINE, have received the above patient education materials/instructions and have verbalized understanding: Date Time Patien t Signature Date Time Provid er Signature Normal [facility] [place] Duplex Abd/Pelvis Retrope r [...] adnexal mass. No ovarian torsion.IUD in the uterus.[place] thanks you for the opportunity to care for your patient. Workstation ID: [id number] - [id number] FINAL REPORT Dictated By: Hiro Newberry MD 09/27/2017 22:18Assigned Physician: Hiro Newberry MD JReviepablo and Electronically Signed By: Hiro Newberry MD 09/27/2017 22:21Transcribed by: TAMI 09/27/2017 22:18Technologist: SIMI Normal [facility] [place] Pelvis Non-OB Completeon 09-28-2017 [...] adnexal mass. No ovarian torsion.IUD in the uterus.[place] thanks you for the opportunity to care for your patient. Workstation ID: [id number] - [id number] FINAL REPORT Dictated By: Hiro Newberry MD 09/27/2017 22:18Assigned Physician: Hiro Newberry MD and Electronically Signed By: Hiro Newberry MD 09/27/2017 22:21Transcribed by: TAMI 09/27/2017 22:18Technologist: SIMI Heredia [facility] US Transvaginalon 09-28-2017 US Transvaginal [...] adnexal mass. No ovarian torsion.IUD in the uterus.[place] thanks you for the opportunity to care for your patient. Workstation ID: [id number] - [id number] FINAL REPORT Dictated By: Hiro Newberry MD 09/27/2017 22:18Assigned Physician: Hiro Newberry MD and Electronically Signed By: Hiro Newberry MD 09/27/2017 22:21Transcribed by: TAMI 09/27/2017 22:18Technologist: MDS Normal [facility] Basic Metabolic Panelon 09-07 Anion gap 11.0 mmol/L Normal 6.0-18.0 [facility] Comment on above: Result Comment: CARSON BARKER NOTE:The calculated Anion Gap(AGAP) does not include Potassium. Performed By: #### 6 9405-9, 50435-4i0, 78575-7 ####[facility], [address] [place], [place]. Calcium 9.9 mg/dL Normal 8.9-10.3 [facility] Comment on above: Performed By: #### 6 9405-9, 45328-7j7, 06889-6 ####[facility], [address] [place], [place]. Chloride 101 mmol/L Normal 98-107 [facility] Comment on above: Performed By: #### 6 9405-9, 66544-0l8, 55315-7 ####[facility], [address], [place]. CO2 22 mmol/L Normal 22-32 [facility] Comment on above: Performed By: #### 6 9405-9, 00217-9i1, 67461-8 ####[facility], [address] [place], [place]. Creatinine 0.56 mg/dL Low 0.66-1.30 [facility] Comment on above: Performed By: #### 6 9405-9, 53556-8c7, 16631-3 ####[facility], [address] [place], [place]. Glucose mass conc 252 mg/dL High 70-110 [place] Comment on above: Performed By: #### 6 9405-9, 67267-4l2, 36128-7 ####[facility], [address], [place]. Potassium molar conc 3.9 mmol/L Normal 3.6-5.1 [facility] Comment on above: Performed By: #### 6 9405-9, 33794-6z9, 04713-8 ####[facility], [address], [place]. Sodium 134 mmol/L Low 136-145 [facility] Comment on above: Performed By: #### 6 9405-9, 87046-6e4, 63811-2 ####[facility], [address] [place], [place]. Urea nitrogen 12 mg/dL Normal 8-20 [facility] Comment on above: Performed By: #### 6 9405-9, 92955-0a7, 13285-4 ####[facility], [address], [place] CBCon 09-18-2017 Erythrocyte distribution width Auto Ratio (RBC) 14.3 % Normal 11.0-14.8 [facility] Comment on above: Performed By: #### 2 4317-0 ####[facility], [address], [place]. Erythrocytes (RBC) 5.98 million/mcL High 3.80-5.10 [facility] Comment on above: Performed By: #### 2 4317-0 ####[facility], [address], [place]. Hematocrit (HCT) 45.7 % High 35.0-45.0 [facility] Comment on above: Performed By: #### 2 4317-0 ####[facility], [address] [place] Hemoglobin mass conc (Bld) 15.3 g/dL Normal 12.0-16.0 [facility] Comment on above: Performed By: #### 2 7-0 ####[facility], [address] [place] [address]. MCH 25.6 Picograms Low 27.0-34.0 [facility] Comment on above: Performed By: #### 2 7-0 ####[facility], [facility] [place], [place]. MCHC mass conc (RBC) 33.5 g/dL Normal 32.0-36.0 [facility] Comment on above: Performed By: #### 2 7-0 ####[facility], [address] [place] [address]. MCV 76.5 fL Low 80.0-97.0 [facility] Comment on above: Performed By: #### 2 7-0 ####[facility], [facility] [place], [place]. Platelet mean volume (PMV) 8.0 fL Normal 6.2-12.1 [facility] Comment on above: Performed By: #### 2 7-0 ####[facility], [facility] [place] [place] Platelets 330 thou/mcL Normal 142-424 [facility] Comment on above: Performed By: #### 2 7-0 ####[facility], [address] [place], [place]. WBC (Leukocytes) 9.9 thou/mcL Normal 4.6-10.2 [facility] Comment on above: Performed By: #### 2 4317-0 ####[facility], [address], [place]. Depart Summaryon 09-18-2017 Depart Summary EMERGENCY DEPARTMENT DISCHARGE SUMMARYPATIENT NAME:MELISSA BYRNE MRN: ([id number]: 22 Years SEX: Female PHONE:[id number]: 09/18/2017 2:10 PM : 1995 ATTENDING PHYSICIAN:David SHAFER , Josie Iraheta PCP: Verona Hilliard MD CHIEF COMPLAINT: abdominal [...] Result(s): Date Order Results 09/18/2017 15:25 Specific [place] Urine POCT N 1.020 09/18/2017 15:25 pH [...] fluid. This may simply be physiologic in nature.[place] thanks you for the opportunity to care for your patient. Workstation ID: [id number] - [id number] FOLLOW UP:FOLLOW-UP APPOINTMENTS: Provider: Specialty: Address: Date: Verona Hilliard MD [place] [phone] (1) 1 to 2 days Normal [facility] ED Pat Eduon 09-18-2017 ED Pat [place] [address] [facility] Department Discharge Instructions MELISSA BYRNE , Please provide this information to your Primary Care/Specialist Name : MELISSA BYRNE Current Date : 09/18/2017 17:27:36DOB : 1995 12:00 PM Primary Care Physician: Verona Hilliard MD Diagnosis : Hyperglycemia; Pelvic pain Follow-Up Instructions:MELISSA BYRNE has been given these follow-up instructions: FOLLOW-UP APPOINTMENTS: Provider: Specialty: Address: Date: Verona Hilliard MD [address] [phone] (1) 1 to 2 days Laboratory Orders: [...] [facility] Name MELISSA BYRNE MRN (COL)-[id number] PLEASE READ THE FOLLOWING REGARDING YOUR MEDICATIONS [...] doses are changed, or new medications (including wujw-gjm-xopfkqr products) are added. If you have any [...] TAKE UNTIL YOU TALK TO YOUR DOCTORNone [place] [id number] [facility] Discharge Instructions Name: MELISSA BYRNE Current Date: 09/18/2017 17:27:36 : 1995 12:00 PM Primary Physician: Verona Hilliard MD We would like to thank you for choosing [facility] for your emergency medical needs. We [...] health of those around you. Call the [place] [employer] at 2-542-YARH-[place] or the [place] [employer] at 5-671-BBZ-8852 for more information.High blood pressure: Your screening blood pressure today was 132 mm Hg / . Hypertension (high blood pressure) is blood pressure over 120/80. People with hypertension should contact their primary care provider within 30 days to follow up. Check your patient portal for additional blood pressure information.Immunizatio ns:Immunization is a way to protect against deadly infections. Discuss this with your child's travel trailer components assembler, or Public Health Department. Your family practice doctor can determine if you need pneumonia or flu vaccine. The [facility] Department can be reached at .Domestic Violence:If [...] suicide hotline, anytime day or night, at 2-218-840-GVFU. Pharmacy Information:Below is a list of 24 hour pharmacies that we are aware of. We suggest that you call the specific pharmacy for their hours before traveling to a location. Hours may vary on holidays. [facility] [address] [place] [address] [phone] [place] [address] [phone] [place] [address] [phone] [place] [address] [phone] [place] [address] [phone] [place] [address] [phone] [place] [address] [phone] Take all medications as directed. If you need prescription assistance, contact the following agencies:?? Partnership for Prescription Assistance at or www.Rodin Therapeuticsx.org?? [facility] Best Rx at or www.Extreme Plastics Plusrx.News in Shorts?? [employer] is a site with many valuable coupons [...] alleviate any discomfort you are experiencing:???Only take yatl-mqy-ywlbroj or prescription medicines as directed by your [...] Document Reviewed: 02/02/2014Francisca Interactive Patient Education ?2016 [employer].Obstetrics and GynecologyPelvic Pain, FemaleFemale pelvic pain can [...] vaginal discharge.???Blood tests. HOME CARE INSTRUCTIONS???Only take bsqk-qev-vxswybr or prescription medicines for pain, discomfort, or [...] Document Reviewed: 09/14/2012Francisca Interactive Patient Education ?2016 [employer].Preventive MedicineBlood Glucose Monitoring, AdultMonitoring your blood glucose [...] you.???All blood glucose meters have a 24-hour "hotline" number to call if you have questions [...] Document Reviewed: 10/18/2013Francisca Interactive Patient Education ?2016 [employer]><><><><><><><><>< ><><><><><><><><><>< ><><><><><> Patient Visit Summary Signature MELISSA BYRNE has been given the following list of patient education materials, prescriptions and follow-up instructions: ICHAVEZ ALEXANDRIA JUSTINE, have received the above patient education materials/instructions and have verbalized understanding: Date Time Patien t Signature Date Time Provid er Signature Normal [facility] ED Physician Noteson 018 ED [...] Patient is a 26 years old left [place]og[place] male with no known significant past medical [...] and patient was advised to follow-up with PCP/MOTION PICTURE COMMENTATOR. Patient will be prescribed naproxen for pain [...] This may simply be physiologic in nature. [place] thanks you for the opportunity to care for your patient. Workstation ID: [id number] - [id number] ORDERS PLACED: Laboratory Urinalysis Manual POCT (CO) [place] September 18, 2017 15:07 Completed [facility]08 Completed CBC Reynaldo GOOD[facility] Lisa September 18, 2017 15:28 Completed BMP (Basic Metabolic Panel) [place] September 18, 2017 15:29 Completed [facility] 16:01 Completed GFRNAF Reynaldo [facility] September 18, 2017 16:01 Completed Xray [place] Duplex Abd/Pelvis Retroper Complete [place] September 18, 2017 15:[address] / MRI / Ultrasound US Transvaginal [place] September 18, 2017 15:58 Completed Ultrasound Pelvis Non-OB Complete [place] September 18, 2017 15:29 Completed Normal [facility] ED Physician Notes PDF Normal [facility] GFRaaon 09-18-2017 eGFR (black) mL/min/{1.73_m2} Normal [facility] Comment on above: Result Comment: The MDRD equation has not been validated for those over 70 years, women, patients with serious co-morbid conditions, or with extremes of bodysize, muscle mass of nutritional status. Performed By: #### 6 9405-9, 25346-3n3, 71881-6 ####[facility], [address], [place]. GFRbbon 09-18-2017 eGFR (non-black) mL/min/{1.73_m2} Normal [facility] Comment on above: Performed By: #### 6 9405-9, 52916-1f7, 04113-5 ####[facility], [address], [place]. [place] Duplex Abd/Pelvis Retrope r Completeon [...] By: Miguel Espinosa MD 09/18/2017 17:01Transcribed by: [facility] 09/18/2017 16:58Technologist: LARA Normal [facility] [place] Pelvis Non-OB Completeon 09-18-2017 [...] fluid. This may simply be physiologic in nature.[place] thanks you for the opportunity to care for your patient. Workstation ID: [id number] - [id number] FINAL REPORT Dictated By: Miguel Espinosa MD 09/18/2017 16:58Assigned Physician: Miguel Espinosa MD CRenathanaeld and Electronically Signed By: Miguel Espinosa MD 09/18/2017 17:01Transcribed by: [facility] 09/18/2017 16:58Technologist: LARA [facility] US Transvaginalon 09-18-2017 US Transvaginal [...] fluid. This may simply be physiologic in nature.[place] thanks you for the opportunity to care for your patient. Workstation ID: [id number] - [id number] FINAL REPORT Dictated By: Miguel Espinosa MD 09/18/2017 16:58Assigned Physician: Miguel Espinosa MD CReike and Electronically Signed By: Miguel Espinosa MD 09/18/2017 17:01Transcribed by: TAMI 09/18/2017 16:58Technologist: LARA [facility] Vital Signs Date Time Vital Sign Value Performing Clinician Facility 03-09-2025 08:17-0400 Body height 157.5 cm Jamari Byrne MD Work Phone: [facility] 03-09-2025 08:17-0400 Body mass index (BMI) [Ratio] 32.74 kg/m2 Jamari Byrne MD Work Phone: [facility] 03-09-2025 08:17-0400 Body weight 81.19 kg Jamari Byrne MD Work Phone: [facility] 03-09-2025 08:17-0400 Diastolic blood pressure 80 mm[Hg] Jamari Byrne MD Work Phone: [facility] 03-09-2025 08:17-0400 Heart rate 78 /min Jamari Byrne MD Work Phone: [facility] 03-09-2025 08:17-0400 SaO2% (BldA) [Mass fraction] 100 % Jamari Byrne MD Work Phone: [facility] 03-09-2025 08:17-0400 Systolic blood pressure 128 mm[Hg] Jamari Byrne MD Work Phone: [facility] 02-21-2025 18:16-0400 Body mass index (BMI) [Ratio] 33.16 kg/m2 Leonie Galarza APRN-BLEACHER PULP Work Phone: [facility] 02-21-2025 18:16-0400 Body temperature 98.4 [degF] Leonie Galarza INTERNATIONAL LOGISTICS ANALYST-BLEACHER PULP Work Phone: [facility] 02-21-2025 18:16-0400 Body weight 82.24 kg Leonie Galarza APRN-[employer]ER [employer]P Work Phone: [facility] 02-21-2025 18:16-0400 Diastolic blood pressure 85 mm[Hg] Lenoie Galarza APRN-[employer]ER [employer]P Work Phone: [facility] 02-21-2025 18:16-0400 Heart rate 118 /min Leonie Galarza INTERNATIONAL LOGISTICS ANALYST-BLEACHER PULP Work Phone: [facility] 02-21-2025 18:16-0400 SaO2% (BldA) [Mass fraction] 97 % Leonie Galarza INTERNATIONAL LOGISTICS ANALYST-BLEACHER PULP Work Phone: [facility] 02-21-2025 18:16-0400 Systolic blood pressure 140 mm[Hg] Leonie Galarza INTERNATIONAL LOGISTICS ANALYST-BLEACHER PULP Work Phone: [facility] 02-19-2025 10:25-0400 Body mass index (BMI) [Ratio] 33.44 kg/m2 Ángela Praisler-Wood INTERNATIONAL LOGISTICS ANALYST.BLEACHER PULP Work Phone: [facility] 02-19-2025 10:25-0400 Body temperature 98.6 [degF] Ángela Praisler-Wood INTERNATIONAL LOGISTICS ANALYST.BLEACHER PULP Work Phone: [facility] 02-19-2025 10:25-0400 Body weight 84 kg Ángela Praisler-Wood INTERNATIONAL LOGISTICS ANALYST.BLEACHER P[employer]P Work Phone: [facility] 02-19-2025 10:25-0400 Diastolic blood pressure 76 mm[Hg] Ángela Praisler-Wood INTERNATIONAL LOGISTICS ANALYST.BLEACHER PULP Work Phone: [facility] 02-19-2025 10:25-0400 Heart rate 105 /min Ángela Praisler-Wood INTERNATIONAL LOGISTICS ANALYST.BLEACHER PULP Work Phone: [facility] 02-19-2025 10:25-0400 Respiratory rate 18 /min Ángela Praisler-Wood INTERNATIONAL LOGISTICS ANALYST.BLEACHER P[employer]P Work Phone: [facility] 02-19-2025 10:25-0400 SaO2% (BldA) [Mass fraction] 98 % Ángela Praisler-Wood INTERNATIONAL LOGISTICS ANALYST.BLEACHER PULP Work Phone: [facility] 02-19-2025 10:25-0400 Systolic blood pressure 118 mm[Hg] Ángela Praisler-Wood INTERNATIONAL LOGISTICS ANALYST.BLEACHER P[employer]P Work Phone: [facility] 01-31-2025 16:33-0400 Body mass index (BMI) [Ratio] 34.09 kg/m2 Jamari Byrne MD Work Phone: [facility] 01-31-2025 16:33-0400 Body weight 84.55 kg Jamari Byrne MD Work Phone: [facility] 01-31-2025 16:33-0400 Diastolic blood pressure 90 mm[Hg] Jamari Byrne MD Work Phone: [facility] 01-31-2025 16:33-0400 Heart rate 96 /min Jamari Byrne MD Work Phone: [facility] 01-31-2025 16:33-0400 SaO2% (BldA) [Mass fraction] 98 % Jamari Byrne MD Work Phone: [facility] 01-31-2025 16:33-0400 Systolic blood pressure 130 mm[Hg] Jamari Byrne MD Work Phone: [facility] 01-28-2025 14:15-0400 Body mass index (BMI) [Ratio] 34.63 kg/m2 Issac Swank INTERNATIONAL LOGISTICS ANALYST.BLEACHER PULP Work Phone: [facility] 01-28-2025 14:15-0400 Body temperature 97.81 [degF] Issac Swank INTERNATIONAL LOGISTICS ANALYST.BLEACHER PULP Work Phone: [facility] 01-28-2025 14:15-0400 Body weight 87 kg Issac Swank INTERNATIONAL LOGISTICS ANALYST.BLEACHER PULP Work Phone: [facility] 01-28-2025 14:15-0400 Diastolic blood pressure 83 mm[Hg] Issac Swank INTERNATIONAL LOGISTICS ANALYST.BLEACHER P[employer]P Work Phone: [facility] 01-28-2025 14:15-0400 Heart rate 102 /min Issac Swank INTERNATIONAL LOGISTICS ANALYST.BLEACHER PULP Work Phone: [facility] 01-28-2025 14:15-0400 Respiratory rate 20 /min Issac Swank INTERNATIONAL LOGISTICS ANALYST.BLEACHER PULP Work Phone: [facility] 01-28-2025 14:15-0400 SaO2% (BldA) [Mass fraction] 98 % Issac Swank INTERNATIONAL LOGISTICS ANALYST.BLEACHER PULP Work Phone: [facility] 01-28-2025 14:15-0400 Systolic blood pressure 122 mm[Hg] Issac Swank INTERNATIONAL LOGISTICS ANALYST.BLEACHER PULP Work Phone: [facility] 01-26-2025 22:00-0400 Body temperature 97.9 [degF] Dr. Jamari Byrne MD Work Phone: [facility] 01-26-2025 22:00-0400 Diastolic blood pressure 89 mm[Hg] Dr. Jamari Byrne MD Work Phone: [facility] 01-26-2025 22:00-0400 Heart rate 89 /min Dr. Jamari Byrne MD Work Phone: [facility] 01-26-2025 22:00-0400 Respiratory rate 16 /min Dr. Jamari Byrne MD Work Phone: [facility] 01-26-2025 22:00-0400 SaO2% (BldA) [Mass fraction] 97 % Dr. Jamari Byrne MD Work Phone: [facility] 01-26-2025 22:00-0400 Systolic blood pressure 132 mm[Hg] Dr. Jamari Byrne MD Work Phone: [facility] 01-26-2025 18:44-0400 Body height 157.[address] Jamari Byrne MD Work Phone: [facility] 01-26-2025 18:44-0400 Body mass index (BMI) [Ratio] 35.6 kg/m2 Dr. Jamari Byrne MD Work Phone: [facility] 01-26-2025 18:44-0400 Body weight 88.[address] Jamari Byrne MD Work Phone: [facility] 01-24-2025 16:58-0400 Diastolic blood pressure 82 mm[Hg] Ty Tomersen DO Work Phone: 5(159)806-782243 [place] [address] 01-24-2025 16:58-0400 Heart rate 79 /min Ty Shannon DO Work Phone: 5(389)869-021643 [place] [address] 01-24-2025 16:58-0400 Respiratory rate 14 /min Ty Shannon DO Work Phone: 6(993)148-943343 [place] [address] 01-24-2025 16:58-0400 SaO2% (BldA) [Mass fraction] 98 % Ty Shannon DO Work Phone: 6(670)229-586243 [place] [address] 01-24-2025 16:58-0400 Systolic blood pressure 147 mm[Hg] Ty Shannon DO Work Phone: 9(884)985-446243 [place] [address] 01-24-2025 14:10-0400 Body height 157.5 cm Ty Shannon DO Work Phone: 9(833)614-626443 [place] [address] 01-24-2025 14:10-0400 Body mass index (BMI) [Ratio] 34.57 kg/m2 Ty Shannon DO Work Phone: 7(890)152-959743 [place] [address] 01-24-2025 14:10-0400 Body temperature 98.01 [degF] Ty Shannon DO Work Phone: 0(901)358-389143 [place] [address] 01-24-2025 14:10-0400 Body weight 85.73 kg Ty Tomersen DO Work Phone: 3(912)698-198843 [place] [address] 01-23-2025 23:30-0400 Body temperature 98 [degF] Dr. Jamari Byrne MD Work Phone: [facility] 01-23-2025 23:30-0400 Diastolic blood pressure 75 mm[Hg] Dr. Jamari Byrne MD Work Phone: [facility] 01-23-2025 23:30-0400 Heart rate 74 /min Dr. Jamari Byrne MD Work Phone: [facility] 01-23-2025 23:30-0400 Respiratory rate 16 /min Dr. Jamari Byrne MD Work Phone: [facility] 01-23-2025 23:30-0400 SaO2% (BldA) [Mass fraction] 99 % Dr. Jamari Byrne MD Work Phone: [facility] 01-23-2025 23:30-0400 Systolic blood pressure 148 mm[Hg] Dr. Jamari Byrne MD Work Phone: [facility] 01-23-2025 21:07-0400 Body height 157.[address] Jamari Byrne MD Work Phone: [facility] 01-23-2025 21:07-0400 Body mass index (BMI) [Ratio] 36.6 kg/m2 Dr. Jamari Byrne MD Work Phone: [facility] 01-23-2025 21:07-0400 Body weight 90.[address] Jamari Byrne MD Work Phone: [facility] 01-21-2025 00:34-0400 Body temperature 97.9 [degF] Dr. Jamari Byrne MD Work Phone: [facility] 01-21-2025 00:34-0400 Diastolic blood pressure 84 mm[Hg] Dr. Jamari Byrne MD Work Phone: [facility] 01-21-2025 00:34-0400 Heart rate 100 /min Dr. Jamari Byrne MD Work Phone: [facility] 01-21-2025 00:34-0400 Respiratory rate 20 /min Dr. Jamari Byrne MD Work Phone: [facility] 01-21-2025 00:34-0400 SaO2% (BldA) [Mass fraction] 100 % Dr. Jamari Byrne MD Work Phone: [facility] 01-21-2025 00:34-0400 Systolic blood pressure 123 mm[Hg] Dr. Jamari Byrne MD Work Phone: [facility] 01-20-2025 22:32-0400 Body height 157.[address] Jamari Byrne MD Work Phone: [facility] 01-20-2025 22:32-0400 Body mass index (BMI) [Ratio] 37.8 kg/m2 Dr. Jamari Byrne MD Work Phone: [facility] 01-20-2025 22:32-0400 Body weight 93.[address] Jamari Byrne MD Work Phone: [facility] 01-20-2025 10:16-0400 Body mass index (BMI) [Ratio] 37.5 kg/m2 Kelsy Radha DO Work Phone: [facility] 01-20-2025 10:16-0400 Body weight 94.2 kg Kelsy Radha DO Work Phone: [facility] 01-20-2025 10:16-0400 Diastolic blood pressure 78 mm[Hg] Kelsy Radha DO Work Phone: [facility] 01-20-2025 10:16-0400 Heart rate 91 /min Kelsy Radha DO Work Phone: [facility] [place] 01-20-20[place] 10:16-0400 Systolic blood pressure 100 mm[Hg] Kelsy Radha DO Work Phone: [facility] 01-19-2025 13:15-0400 Body mass index (BMI) [Ratio] 37.01 kg/m2 Whit Schulte MD Work Phone: [facility] 01-19-2025 13:15-0400 Body weight 92.99 kg Whit Schulte MD Work Phone: [facility] 01-19-2025 13:15-0400 Diastolic blood pressure 70 mm[Hg] Whit Schulte MD Work Phone: [facility] 01-19-2025 13:15-0400 Systolic blood pressure 126 mm[Hg] Whit Schulte MD Work Phone: [facility] 12-21-2024 13:46-0400 Body mass index (BMI) [Ratio] 34.85 kg/m2 William Gramajo MD Work Phone: [facility] 12-21-2024 13:46-0400 Body weight 87.54 kg William Gramajo MD Work Phone: [facility] 12-21-2024 13:46-0400 Diastolic blood pressure 70 mm[Hg] William Gramajo MD Work Phone: [facility] 12-21-2024 13:46-0400 Systolic blood pressure 118 mm[Hg] William Gramajo MD Work Phone: [facility] 12-16-2024 20:40-0400 Diastolic blood pressure 70 mm[Hg] Dr. Jamari Byrne MD Work Phone: [facility] 12-16-2024 20:40-0400 Heart rate 75 /min Dr. Jamari Byrne MD Work Phone: [facility] 12-16-2024 20:40-0400 Systolic blood pressure 115 mm[Hg] Dr. Jamari Byrne MD Work Phone: [facility] 12-16-2024 20:12-0400 Body height 157.[address] Jamari Byrne MD Work Phone: [facility] 12-16-2024 20:12-0400 Body mass index (BMI) [Ratio] 79.3 kg/m2 Dr. Jamari Byrne MD Work Phone: [facility] 12-16-2024 20:12-0400 Body weight 196.[address] Jamari Byrne MD Work Phone: [facility] 12-16-2024 20:00-0400 Body temperature 97.9 [degF] Dr. Jamari Byrne MD Work Phone: [facility] 12-16-2024 20:00-0400 Respiratory rate 18 /min Dr. Jamari Byrne MD Work Phone: [facility] 12-16-2024 20:00-0400 SaO2% (BldA) [Mass fraction] 98 % Dr. Jamari Byrne MD Work Phone: [facility] 12-09-2024 07:37-0400 Diastolic blood pressure 80 mm[Hg] Dr. Jamari Byrne MD Work Phone: [facility] 12-09-2024 07:37-0400 Heart rate 84 /min Dr. Jamari Byrne MD Work Phone: [facility] 12-09-2024 07:37-0400 Systolic blood pressure 136 mm[Hg] Dr. Jamari Byrne MD Work Phone: [facility] 12-09-2024 07:35-0400 Body temperature 96.4 [degF] Dr. Jamari Byrne MD Work Phone: [facility] 12-09-2024 07:35-0400 Respiratory rate 16 /min Dr. Jamari Byrne MD Work Phone: [facility] 12-09-2024 07:35-0400 SaO2% (BldA) [Mass fraction] 98 % Dr. Jamari Byrne MD Work Phone: [facility] 12-08-2024 20:31-0400 Inhaled oxygen flow rate 98 L/min Dr. Jamari Byrne MD Work Phone: [facility] 12-07-2024 11:10-0400 Body height 157.[address] Jamari Byrne MD Work Phone: [facility] 12-07-2024 11:10-0400 Body mass index (BMI) [Ratio] 38.7 kg/m2 Dr. Jamari Byrne MD Work Phone: [facility] 12-07-2024 11:10-0400 Body weight [address] Jamari Byrne MD Work Phone: [facility] 12-06-2024 09:46-0400 Body mass index (BMI) [Ratio] 38.1 kg/m2 Ronaldo Rubio MD Work Phone: [facility] 12-06-2024 09:46-0400 Body weight 95.71 kg Ronaldo Rubio MD Work Phone: [facility] 12-06-2024 09:46-0400 Diastolic blood pressure 70 mm[Hg] Ronaldo Rubio MD Work Phone: [facility] 12-06-2024 09:46-0400 Systolic blood pressure 116 mm[Hg] Ronaldo Rubio MD Work Phone: [facility] 12-02-2024 10:04-0400 Body mass index (BMI) [Ratio] 38.28 kg/m2 Keshav Loving MD Work Phone: [facility] 12-02-2024 10:04-0400 Body weight 96.16 kg Keshav Loving MD Work Phone: [facility] 12-02-2024 10:04-0400 Diastolic blood pressure 72 mm[Hg] Keshav Loving MD Work Phone: [facility] 12-02-2024 10:04-0400 Systolic blood pressure 104 mm[Hg] Keshav Loving MD Work Phone: [facility] 11-30-2024 15:35-0400 Body mass index (BMI) [Ratio] 38.1 kg/m2 [facility] 11-30-2024 15:35-0400 Body weight 95.71 kg [facility] 11-30-2024 15:35-0400 Diastolic blood pressure 64 mm[Hg] [facility] 11-30-2024 15:35-0400 Systolic blood pressure 128 mm[Hg] [facility] 11-25-2024 08:37-0400 Body mass index (BMI) [Ratio] 37.56 kg/m2 William Gramajo MD Work Phone: [facility] 11-25-2024 08:37-0400 Body weight 94.35 kg William Gramajo MD Work Phone: [facility] 11-25-2024 08:37-0400 Diastolic blood pressure 79 mm[Hg] William Gramajo MD Work Phone: [facility] 11-25-2024 08:37-0400 Systolic blood pressure 123 mm[Hg] William Gramajo MD Work Phone: [facility] 11-22-2024 09:17-0400 Diastolic blood pressure 70 mm[Hg] [facility] 11-22-2024 09:17-0400 Systolic blood pressure 126 mm[Hg] [facility] 11-18-2024 14:25-0400 Body mass index (BMI) [Ratio] 37.95 kg/m2 Keshav Loving MD Work Phone: [facility] 11-18-2024 14:25-0400 Body weight 95.35 kg Keshav Loving MD Work Phone: [facility] 11-18-2024 14:25-0400 Diastolic blood pressure 80 mm[Hg] Keshav Loving MD Work Phone: [facility] 11-18-2024 14:25-0400 Systolic blood pressure 119 mm[Hg] Keshav Loving MD Work Phone: [facility] 11-15-2024 16:13-0400 Diastolic blood pressure 75 mm[Hg] Dr. Jamari Byrne MD Work Phone: [facility] 11-15-2024 16:13-0400 Heart rate 96 /min Dr. Jamari Byrne MD Work Phone: [facility] 11-15-2024 16:13-0400 Systolic blood pressure 118 mm[Hg] Dr. Jamari Byrne MD Work Phone: [facility] 11-15-2024 16:12-0400 Body temperature 97.5 [degF] Dr. Jamari Byrne MD Work Phone: [facility] 11-15-2024 16:12-0400 Respiratory rate 16 /min Dr. Jamari Byrne MD Work Phone: [facility] 11-15-2024 16:12-0400 SaO2% (BldA) [Mass fraction] 98 % Dr. Jamari Byrne MD Work Phone: [facility] 11-15-2024 16:01-0400 Body height 157.[address] Jamari Byrne MD Work Phone: [facility] 11-15-2024 16:01-0400 Body mass index (BMI) [Ratio] 37.8 kg/m2 Dr. Jamari Byrne MD Work Phone: [facility] 11-15-2024 16:01-0400 Body weight 93.[address] Jamari Byrne MD Work Phone: [facility] 11-15-2024 08:29-0400 Body mass index (BMI) [Ratio] 37.66 kg/m2 Keshav Loving MD Work Phone: [facility] 11-15-2024 08:29-0400 Body weight 94.62 kg Keshav Loving MD Work Phone: [facility] 11-15-2024 08:29-0400 Diastolic blood pressure 68 mm[Hg] Keshav Loving MD Work Phone: [facility] 11-15-2024 08:29-0400 Systolic blood pressure 120 mm[Hg] Keshav Loving MD Work Phone: [facility] 11-11-2024 09:12-0400 Body mass index (BMI) [Ratio] 37.01 kg/m2 Krys Kulkarni MD Work Phone: [facility] 11-11-2024 09:12-0400 Body weight 92.99 kg Krys Kulkarni MD Work Phone: [facility] 11-11-2024 09:12-0400 Diastolic blood pressure 70 mm[Hg] Krys Kulkarni MD Work Phone: [facility] Comment on above: true bp 116/79; 109/75; 109/75; 108/74; 101/67; 108/74 11-11-2024 09:12-0400 Systolic blood pressure 128 mm[Hg] Krys Kulkarni MD Work Phone: [facility] Comment on above: true bp 116/79; 109/75; 109/75; 108/74; 101/67; 108/74 11-08-2024 09:29-0400 Diastolic blood pressure 64 mm[Hg] [facility] 11-08-2024 09:29-0400 Systolic blood pressure 126 mm[Hg] [facility] 11-05-2024 10:18-0400 Body mass index (BMI) [Ratio] 37.12 kg/m2 Krys Kulkarni MD Work Phone: [facility] 11-05-2024 10:18-0400 Body weight 93.26 kg Krys Kulkarni MD Work Phone: [facility] 11-05-2024 10:18-0400 Diastolic blood pressure 77 mm[Hg] Krys Kulkarni MD Work Phone: [facility] 11-05-2024 10:18-0400 Systolic blood pressure 114 mm[Hg] Krys Kulkarni MD Work Phone: [facility] 11-04-2024 09:43-0400 Body mass index (BMI) [Ratio] 37.34 kg/m2 Kelsy Radha DO Work Phone: [facility] 11-04-2024 09:43-0400 Body weight 93.8 kg Kelsy Radha DO Work Phone: [facility] 11-04-2024 09:43-0400 Diastolic blood pressure 68 mm[Hg] Kelsy Radha DO Work Phone: [facility] 11-04-2024 09:43-0400 Heart rate 102 /min Kelsy Radha DO Work Phone: [facility] 11-04-2024 09:43-0400 Systolic blood pressure 104 mm[Hg] Kelsy Radha DO Work Phone: [facility] 11-02-2024 09:36-0400 Body mass index (BMI) [Ratio] 37.41 kg/m2 [facility] 11-02-2024 09:36-0400 Body weight 93.98 kg [facility] 11-02-2024 09:36-0400 Diastolic blood pressure 60 mm[Hg] [facility] 11-02-2024 09:36-0400 Systolic blood pressure 112 mm[Hg] [facility] 10-25-2024 09:21-0400 Body mass index (BMI) [Ratio] 36.47 kg/m2 Piper Julian MD Work Phone: [facility] 10-25-2024 09:21-0400 Body weight 91.63 kg Piper Julian MD Work Phone: [facility] 10-25-2024 09:21-0400 Diastolic blood pressure 71 mm[Hg] Piper Julian MD Work Phone: [facility] 10-25-2024 09:21-0400 Systolic blood pressure 114 mm[Hg] Piper Julian MD Work Phone: [facility] 10-18-2024 13:38-0400 Body mass index (BMI) [Ratio] 36.11 kg/m2 Whit Schulte MD Work Phone: [facility] 10-18-2024 13:38-0400 Body weight 90.72 kg Whit Schulte MD Work Phone: [facility] 10-18-2024 13:38-0400 Diastolic blood pressure 60 mm[Hg] Whit Schulte MD Work Phone: [facility] 10-18-2024 13:38-0400 Systolic blood pressure 110 mm[Hg] Whit Schulte MD Work Phone: [facility] 10-16-2024 17:56-0400 Body temperature 98.1 [degF] Dr. Jamari Byrne MD Work Phone: [facility] 10-16-2024 17:56-0400 Diastolic blood pressure 71 mm[Hg] Dr. Jamari Byrne MD Work Phone: [facility] 10-16-2024 17:56-0400 Heart rate 96 /min Dr. Jamari Byrne MD Work Phone: [facility] 10-16-2024 17:56-0400 Respiratory rate 14 /min Dr. Jamari Byrne MD Work Phone: [facility] 10-16-2024 17:56-0400 SaO2% (BldA) [Mass fraction] 99 % Dr. Jamari Byrne MD Work Phone: [facility] 10-16-2024 17:56-0400 Systolic blood pressure 127 mm[Hg] Dr. Jamari Byrne MD Work Phone: [facility] 10-16-2024 17:53-0400 Body height 157.[address] Jamari Byrne MD Work Phone: [facility] 10-16-2024 17:53-0400 Body mass index (BMI) [Ratio] 36.8 kg/m2 Dr. Jamari Byrne MD Work Phone: [facility] 10-16-2024 17:53-0400 Body weight 91.[address] Jamari Byrne MD Work Phone: [facility] 10-04-2024 11:38-0400 Body mass index (BMI) [Ratio] 35.39 kg/m2 Piper Julian MD Work Phone: [facility] 10-04-2024 11:38-0400 Body weight 88.91 kg Piper Julian MD Work Phone: [facility] 10-04-2024 11:38-0400 Diastolic blood pressure 68 mm[Hg] Piper Julian MD Work Phone: [facility] 10-04-2024 11:38-0400 Systolic blood pressure 114 mm[Hg] Piper Julian MD Work Phone: [facility] 09-24-2024 15:07-0400 Body height 157.[address] Jamari Byrne MD Work Phone: [facility] 09-24-2024 15:07-0400 Body mass index (BMI) [Ratio] 35.5 kg/m2 Dr. Jamari Byrne MD Work Phone: [facility] 09-24-2024 15:07-0400 Body weight 88.[address] Jamari Byrne MD Work Phone: [facility] 09-24-2024 14:07-0400 Body temperature 98.1 [degF] Dr. Jamari Byrne MD Work Phone: [facility] 09-24-2024 14:07-0400 Respiratory rate 16 /min Dr. Jamari Byrne MD Work Phone: [facility] 09-24-2024 14:06-0400 Diastolic blood pressure 70 mm[Hg] Dr. Jamari Byrne MD Work Phone: [facility] 09-24-2024 14:06-0400 Heart rate 100 /min Dr. Jamari Byrne MD Work Phone: [facility] 09-24-2024 14:06-0400 Systolic blood pressure 122 mm[Hg] Dr. Jamari Byrne MD Work Phone: [facility] 09-24-2024 08:47-0400 Body mass index (BMI) [Ratio] 34.85 kg/m2 Leonie Waldron APRN.CNM Work Phone: [facility] 09-24-2024 08:47-0400 Body weight 87.54 kg Leonie Waldron APRN.CNM Work Phone: [facility] 09-24-2024 08:47-0400 Diastolic blood pressure 64 mm[Hg] Leonie Waldron APRN.CNM Work Phone: [facility] 09-24-2024 08:47-0400 Systolic blood pressure 110 mm[Hg] Leonie Waldron APRN.CNM Work Phone: [facility] 09-20-2024 13:22-0400 Body mass index (BMI) [Ratio] 34.59 kg/m2 Kelsy Guillermo DO Work Phone: [facility] 09-20-2024 13:22-0400 Body weight 86.9 kg Kelsy Radha DO Work Phone: [facility] 09-20-2024 13:22-0400 Diastolic blood pressure 71 mm[Hg] Kelsy Radha DO Work Phone: [facility] 09-20-2024 13:22-0400 Heart rate 104 /min Kelsy Radha DO Work Phone: [facility] 09-20-2024 13:22-0400 Systolic blood pressure 116 mm[Hg] Kelsy Radha DO Work Phone: [facility] 09-07-2024 10:42-0400 Body mass index (BMI) [Ratio] 34.31 kg/m2 Ronaldo Rubio MD Work Phone: [facility] 09-07-2024 10:42-0400 Body weight 86.18 kg Ronaldo Rubio MD Work Phone: [facility] 09-07-2024 10:42-0400 Diastolic blood pressure 60 mm[Hg] Ronaldo Rubio MD Work Phone: [facility] 09-07-2024 10:42-0400 Systolic blood pressure 120 mm[Hg] Ronaldo Rubio MD Work Phone: [facility] 09-06-2024 10:02-0400 Body mass index (BMI) [Ratio] 34.61 kg/m2 Jamari Byrne MD Work Phone: [facility] 09-06-2024 10:02-0400 Body weight 85.82 kg Jamari Byrne MD Work Phone: [facility] 09-06-2024 10:02-0400 Diastolic blood pressure 68 mm[Hg] Jamari Byrne MD Work Phone: [facility] 09-06-2024 10:02-0400 Heart rate 98 /min Jamari Byrne MD Work Phone: [facility] 09-06-2024 10:02-0400 SaO2% (BldA) [Mass fraction] 98 % Jamari Byrne MD Work Phone: [facility] 09-06-2024 10:02-0400 Systolic blood pressure 120 mm[Hg] Jamari Byrne MD Work Phone: [facility] 09-02-2024 11:57-0400 Diastolic blood pressure 60 mm[Hg] [facility] 09-02-2024 11:57-0400 Systolic blood pressure 112 mm[Hg] [facility] 08-10-2024 08:05-0500 Body mass index (BMI) [Ratio] 33.26 kg/m2 [facility] 08-10-2024 08:05-0500 Body weight 83.55 kg [facility] 08-10-2024 08:05-0500 Diastolic blood pressure 70 mm[Hg] [facility] 08-10-2024 08:05-0500 Systolic blood pressure 112 mm[Hg] [facility] 07-26-2024 13:40-0500 Body mass index (BMI) [Ratio] 33.22 kg/m2 Kelsy Radha DO Work Phone: [facility] 07-26-2024 13:40-0500 Body weight 83.45 kg Kelsy Radha DO Work Phone: [facility] 07-26-2024 13:40-0500 Diastolic blood pressure 58 mm[Hg] Kelsy Radha DO Work Phone: [facility] 07-26-2024 13:40-0500 Heart rate 94 /min Kelsy Radha DO Work Phone: [facility] 07-26-2024 13:40-0500 Systolic blood pressure 127 mm[Hg] Kelsy Radha DO Work Phone: [facility] 07-23-2024 11:27-0500 Body mass index (BMI) [Ratio] 32.5 kg/m2 William Gramajo MD Work Phone: [facility] 07-23-2024 11:27-0500 Body weight 81.65 kg William Gramajo MD Work Phone: [facility] 07-23-2024 11:27-0500 Diastolic blood pressure 60 mm[Hg] William Gramajo MD Work Phone: [facility] 07-23-2024 11:27-0500 Systolic blood pressure 108 mm[Hg] William Gramajo MD Work Phone: [facility] 07-13-2024 09:51-0500 Body mass index (BMI) [Ratio] 32.21 kg/m2 William Gramajo MD Work Phone: [facility] 07-13-2024 09:51-0500 Body weight 80.92 kg William Gramajo MD Work Phone: [facility] 07-13-2024 09:51-0500 Diastolic blood pressure 60 mm[Hg] William Gramajo MD Work Phone: [facility] 07-13-2024 09:51-0500 Systolic blood pressure 110 mm[Hg] William Gramajo MD Work Phone: [facility] 07-01-2024 21:50-0500 Body temperature 98.71 [degF] Sixto Myers MD Work Phone: [facility] 07-01-2024 21:00-0500 Diastolic blood pressure 81 mm[Hg] Sixto Myers MD Work Phone: [facility] 07-01-2024 21:00-0500 Heart rate 110 /min Sixto Myers MD Work Phone: [facility] 07-01-2024 21:00-0500 Respiratory rate 18 /min Sixto Myers MD Work Phone: [facility] 07-01-2024 21:00-0500 SaO2% (BldA) [Mass fraction] 93 % Sixto Myers MD Work Phone: [facility] 07-01-2024 21:00-0500 Systolic blood pressure 123 mm[Hg] Sixto Myers MD Work Phone: [facility] 07-01-2024 19:43-0500 Body height 157.5 cm Sixto Myers MD Work Phone: [facility] 07-01-2024 19:43-0500 Body mass index (BMI) [Ratio] 32.56 kg/m2 Sixto Myers MD Work Phone: [facility] 07-01-2024 19:43-0500 Body weight 80.74 kg Sixto Myers MD Work Phone: [facility] 06-15-2024 14:25-0500 Body mass index (BMI) [Ratio] 32.17 kg/m2 Pooja Latham MD Work Phone: [facility] 06-15-2024 14:25-0500 Body weight 80.83 kg Pooja Latham MD Work Phone: [facility] 06-15-2024 14:25-0500 Diastolic blood pressure 58 mm[Hg] Pooja Latham MD Work Phone: [facility] 06-15-2024 14:25-0500 Systolic blood pressure 100 mm[Hg] Pooja Latham MD Work Phone: [facility] 06-07-2024 14:07-0500 Body mass index (BMI) [Ratio] 31.68 kg/m2 Kelsy Radha DO Work Phone: [facility] 06-07-2024 14:07-0500 Body weight 79.6 kg Kelsy Radha DO Work Phone: [facility] 06-07-2024 14:07-0500 Diastolic blood pressure 64 mm[Hg] Kelsy Radha DO Work Phone: [facility] 06-07-2024 14:07-0500 Heart rate 85 /min Kelsy Radha DO Work Phone: [facility] 06-07-2024 14:07-0500 Systolic blood pressure 104 mm[Hg] Kelsy Radha DO Work Phone: [facility] 05-26-2024 09:57-0500 Body mass index (BMI) [Ratio] 31.24 kg/m2 Krys Kulkarni MD Work Phone: [facility] 05-26-2024 09:57-0500 Body weight 78.47 kg Krys Kulkarni MD Work Phone: [facility] 05-26-2024 09:57-0500 Diastolic blood pressure 76 mm[Hg] Krys Kulkarni MD Work Phone: [facility] 05-26-2024 09:57-0500 Systolic blood pressure 116 mm[Hg] Krys Kulkarni MD Work Phone: [facility] 05-21-2024 19:12-0500 Body height 157.5 cm Reza Lemasters DO Work Phone: [facility] 05-21-2024 19:12-0500 Body mass index (BMI) [Ratio] 31.28 kg/m2 Reza Lemasters DO Work Phone: [facility] 05-21-2024 19:12-0500 Body temperature 97.7 [degF] Reza Lemasters DO Work Phone: [facility] 05-21-2024 19:12-0500 Body weight 77.56 kg Reza Lemasters DO Work Phone: [facility] 05-21-2024 19:12-0500 Diastolic blood pressure 68 mm[Hg] Reza Lemasters DO Work Phone: [facility] 05-21-2024 19:12-0500 Heart rate 91 /min Reza Lemasters DO Work Phone: [facility] 05-21-2024 19:12-0500 Respiratory rate 18 /min Reza Lemasters DO Work Phone: [facility] 05-21-2024 19:12-0500 SaO2% (BldA) [Mass fraction] 100 % Reza Lemasters DO Work Phone: [facility] 05-21-2024 19:12-0500 Systolic blood pressure 115 mm[Hg] Reza Lemasters DO Work Phone: [facility] 05-07-2024 09:29-0500 Body height 158.5 cm Zayda Parker INTERNATIONAL LOGISTICS ANALYST.[employer] Work Phone: [facility] 05-07-2024 09:29-0500 Body mass index (BMI) [Ratio] 31.02 kg/m2 Zayda Parker INTERNATIONAL LOGISTICS ANALYST.[employer] Work Phone: [facility] 05-07-2024 09:29-0500 Body weight 77.93 kg Zayda Parker INTERNATIONAL LOGISTICS ANALYST.[employer] Work Phone: [facility] 05-07-2024 09:29-0500 Diastolic blood pressure 60 mm[Hg] Zayda Parker INTERNATIONAL LOGISTICS ANALYST.[employer] Work Phone: [facility] 05-07-2024 09:29-0500 Systolic blood pressure 120 mm[Hg] Zayda Parker INTERNATIONAL LOGISTICS ANALYST.[employer] Work Phone: [facility] 05-04-2024 14:37-0500 Body mass index (BMI) [Ratio] 31.93 kg/m2 Jamari Byrne MD Work Phone: [facility] 05-04-2024 14:37-0500 Body weight 76.66 kg Jamari Byrne MD Work Phone: [facility] 05-04-2024 14:37-0500 Diastolic blood pressure 76 mm[Hg] Jamari Byrne MD Work Phone: [facility] 05-04-2024 14:37-0500 Heart rate 95 /min Jamari Byrne MD Work Phone: [facility] 05-04-2024 14:37-0500 SaO2% (BldA) [Mass fraction] 98 % Jamari Byrne MD Work Phone: [facility] 05-04-2024 14:37-0500 Systolic blood pressure 118 mm[Hg] Jamari Byrne MD Work Phone: [facility] 05-03-2024 14:13-0500 Body mass index (BMI) [Ratio] 30.91 kg/m2 Kelsy Radha DO Work Phone: [facility] 05-03-2024 14:13-0500 Body weight 77.9 kg Kelsy Radha DO Work Phone: [facility] 05-03-2024 14:13-0500 Diastolic blood pressure 67 mm[Hg] Kelsy Radha DO Work Phone: [facility] 05-03-2024 14:13-0500 Heart rate 94 /min Kelsy Radha DO Work Phone: [facility] 05-03-2024 14:13-0500 Systolic blood pressure 101 mm[Hg] Kelsy Radha DO Work Phone: [facility] 04-28-2024 08:34-0500 Body height 154.9 cm Joanie Hurtado INTERNATIONAL LOGISTICS ANALYST-[employer] Work Phone: [facility] 04-28-2024 08:34-0500 Body mass index (BMI) [Ratio] 32.06 kg/m2 Joanie Hurtado INTERNATIONAL LOGISTICS ANALYST[employer] Work Phone: [facility] 04-28-2024 08:34-0500 Body weight 76.97 kg Joanie Hurtado INTERNATIONAL LOGISTICS ANALYST[employer] Work Phone: [facility] 04-28-2024 08:34-0500 Diastolic blood pressure 82 mm[Hg] Joanie Hurtado INTERNATIONAL LOGISTICS ANALYST[employer] Work Phone: [facility] 04-28-2024 08:34-0500 Heart rate 104 /min Joanie Hurtado INTERNATIONAL LOGISTICS ANALYST[employer] Work Phone: [facility] 04-28-2024 08:34-0500 SaO2% (BldA) [Mass fraction] 97 % Joanie Hurtado INTERNATIONAL LOGISTICS ANALYST-BLEACHER [employer] Work Phone: [facility] 04-28-2024 08:34-0500 Systolic blood pressure 140 mm[Hg] Joanie Hurtado INTERNATIONAL LOGISTICS ANALYST-BLEACHER [employer] Work Phone: [facility] 04-18-2024 21:51-0500 Diastolic blood pressure 93 mm[Hg] Jamari Chavez MD Work Phone: [facility] 04-18-2024 21:51-0500 Heart rate 104 /min Jamari Byrne MD Work Phone: [facility] 04-18-2024 21:51-0500 Respiratory rate 18 /min Jamari Byrne MD Work Phone: [facility] 04-18-2024 21:51-0500 SaO2% (BldA) [Mass fraction] 98 % Jamari Byrne MD Work Phone: [facility] 04-18-2024 21:51-0500 Systolic blood pressure 133 mm[Hg] Jamari Byrne MD Work Phone: [facility] 04-18-2024 18:48-0500 Body height 154.9 cm Jamari Byrne MD Work Phone: [facility] 04-18-2024 18:48-0500 Body mass index (BMI) [Ratio] 32.88 kg/m2 Jamari Byrne MD Work Phone: [facility] 04-18-2024 18:48-0500 Body temperature 98.29 [degF] Jamari Byrne MD Work Phone: [facility] 04-18-2024 18:48-0500 Body weight 78.93 kg Jamari Byrne MD Work Phone: [facility] 01-23-2024 16:00-0400 Body mass index (BMI) [Ratio] 30.45 kg/m2 Jamari Byrne MD Work Phone: [facility] 01-23-2024 16:00-0400 Body weight 75.52 kg Jamari Byrne MD Work Phone: [facility] 01-23-2024 16:00-0400 Diastolic blood pressure 70 mm[Hg] Jamari Byrne MD Work Phone: [facility] 01-23-2024 16:00-0400 Heart rate 98 /min Jamari Byrne MD Work Phone: [facility] 01-23-2024 16:00-0400 SaO2% (BldA) [Mass fraction] 98 % Jamari Byrne MD Work Phone: [facility] 01-23-2024 16:00-0400 Systolic blood pressure 110 mm[Hg] Jamari Byrne MD Work Phone: [facility] 12-25-2023 16:05-0400 Body height 157.5 cm Jamari Byrne MD Work Phone: [facility] 12-25-2023 16:05-0400 Body mass index (BMI) [Ratio] 31.18 kg/m2 Jamari Byrne MD Work Phone: [facility] 12-25-2023 16:05-0400 Body weight 77.34 kg Jamari Byrne MD Work Phone: [facility] 12-25-2023 16:05-0400 Diastolic blood pressure 70 mm[Hg] Jamari Byrne MD Work Phone: [facility] 12-25-2023 16:05-0400 Heart rate 87 /min Jamari Byrne MD Work Phone: [facility] 12-25-2023 16:05-0400 SaO2% (BldA) [Mass fraction] 97 % Jamari Byrne MD Work Phone: [facility] Comment on above: RA 12-25-2023 16:05-0400 Systolic blood pressure 112 mm[Hg] Jamari Byrne MD Work Phone: [facility] 09-15-2023 10:19-0400 Body mass index (BMI) [Ratio] 34.46 kg/m2 Jamari Byrne MD Work Phone: [facility] 09-15-2023 10:19-0400 Body temperature 98.1 [degF] Jamari Byrne MD Work Phone: [facility] 09-15-2023 10:19-0400 Body weight 86.68 kg Jamari Byrne MD Work Phone: [facility] 09-15-2023 10:19-0400 Diastolic blood pressure 80 mm[Hg] Jamari Byrne MD Work Phone: [facility] 09-15-2023 10:19-0400 Heart rate 110 /min Jamari Byrne MD Work Phone: [facility] 09-15-2023 10:19-0400 SaO2% (BldA) [Mass fraction] 100 % Jamari Byrne MD Work Phone: [facility] 09-15-2023 10:19-0400 Systolic blood pressure 124 mm[Hg] Jamari Byrne MD Work Phone: [facility] 08-19-2023 10:08-0400 Body temperature 98.1 [degF] Krislyn Aberegg PA Work Phone: [facility] 08-19-2023 10:08-0400 Body weight 89 kg Krislyn Aberegg PA Work Phone: [facility] 08-19-2023 10:08-0400 Diastolic blood pressure 80 mm[Hg] Krislyn Aberegg PA Work Phone: [facility] 08-19-2023 10:08-0400 Heart rate 100 /min Krislyn Aberegg PA Work Phone: [facility] 08-19-2023 10:08-0400 Respiratory rate 20 /min Krislyn Aberegg PA Work Phone: [facility] 08-19-2023 10:08-0400 SaO2% (BldA) [Mass fraction] 97 % Krislyn Aberegg PA Work Phone: [facility] 08-19-2023 10:08-0400 Systolic blood pressure 110 mm[Hg] Krislyn Aberegg PA Work Phone: [facility] 07-10-2023 10:27-0500 Body mass index (BMI) [Ratio] 34.07 kg/m2 Jamari Byrne MD Work Phone: [facility] 07-10-2023 10:27-0500 Body temperature 97.81 [degF] Jamari Byrne MD Work Phone: [facility] 07-10-2023 10:27-0500 Body weight 85.68 kg Jamari Byrne MD Work Phone: [facility] 07-10-2023 10:27-0500 Diastolic blood pressure 78 mm[Hg] Jamari Byrne MD Work Phone: [facility] 07-10-2023 10:27-0500 Heart rate 95 /min Jamari Byrne MD Work Phone: [facility] 07-10-2023 10:27-0500 SaO2% (BldA) [Mass fraction] 100 % Jamari Byrne MD Work Phone: [facility] 07-10-2023 10:27-0500 Systolic blood pressure 130 mm[Hg] Jamari Byrne MD Work Phone: [facility] 05-09-2023 11:11-0500 Body mass index (BMI) [Ratio] 35.07 kg/m2 Jamari Byrne MD Work Phone: [facility] 05-09-2023 11:11-0500 Body temperature 97.7 [degF] Jamari Byrne MD Work Phone: [facility] 05-09-2023 11:11-0500 Body weight 88.22 kg Jamari Byrne MD Work Phone: [facility] 05-09-2023 11:11-0500 Diastolic blood pressure 82 mm[Hg] Jamari Byrne MD Work Phone: [facility] 05-09-2023 11:11-0500 Heart rate 93 /min Jamari Byrne MD Work Phone: [facility] 05-09-2023 11:11-0500 SaO2% (BldA) [Mass fraction] 98 % Jamari Byrne MD Work Phone: [facility] 05-09-2023 11:11-0500 Systolic blood pressure 118 mm[Hg] Jamari Byrne MD Work Phone: [facility] 03-17-2023 11:08-0400 Body height 158.6 cm Jamari Byrne MD Work Phone: [facility] 03-17-2023 11:08-0400 Body mass index (BMI) [Ratio] 35.85 kg/m2 Jamari Byrne MD Work Phone: [facility] 03-17-2023 11:08-0400 Body weight 90.17 kg Jamari Byrne MD Work Phone: [facility] 03-17-2023 11:08-0400 Diastolic blood pressure 80 mm[Hg] Jamari Byrne MD Work Phone: [facility] 03-17-2023 11:08-0400 Heart rate 111 /min Jamari Bynre MD Work Phone: [facility] 03-17-2023 11:08-0400 Systolic blood pressure 110 mm[Hg] Jamari Byrne MD Work Phone: [facility] 12-13-2022 13:31-0400 Body height 158.6 cm Jamari Byrne MD Work Phone: [facility] 12-13-2022 13:31-0400 Body mass index (BMI) [Ratio] 36.77 kg/m2 Jamari Byrne MD Work Phone: [facility] 12-13-2022 13:31-0400 Body weight 92.49 kg Jamari Byrne MD Work Phone: [facility] 12-13-2022 13:31-0400 Diastolic blood pressure 80 mm[Hg] Jamari Byrne MD Work Phone: [facility] 12-13-2022 13:31-0400 Heart rate 104 /min Jamari Byrne MD Work Phone: [facility] 12-13-2022 13:31-0400 SaO2% (BldA) [Mass fraction] 97 % Jamari Byrne MD Work Phone: [facility] 12-13-2022 13:31-0400 Systolic blood pressure 118 mm[Hg] Jamari Byrne MD Work Phone: [facility] 08-17-2022 18:56-0500 Body height 160 cm Lazara Jon DO Work Phone: [facility] 08-17-2022 18:56-0500 Body mass index (BMI) [Ratio] 34.19 kg/m2 Lazara Jon DO Work Phone: [facility] 08-17-2022 18:56-0500 Body temperature 97.7 [degF] Lazara Deepack DO Work Phone: [facility] 08-17-2022 18:56-0500 Body weight 87.54 kg Lazara Jon DO Work Phone: [facility] 08-17-2022 18:56-0500 Diastolic blood pressure 86 mm[Hg] Lazara Deepack DO Work Phone: [facility] 08-17-2022 18:56-0500 Heart rate 96 /min Lazara Deepack DO Work Phone: [facility] 08-17-2022 18:56-0500 Respiratory rate 16 /min Lazara Deepack DO Work Phone: [facility] 08-17-2022 18:56-0500 SaO2% (BldA) [Mass fraction] 97 % Lazara Deepack DO Work Phone: [facility] 08-17-2022 18:56-0500 Systolic blood pressure 126 mm[Hg] Lazara Lillitorreyck DO Work Phone: [facility] 05-24-2022 10:15-0500 Body height 157.48 cm Jamari L Chavez Work Phone: [facility] Work Phone: 05-24-2022 10:15-0500 Body mass index (BMI) [Ratio] 32.92 kg/m2 Jamari L Chavez Work Phone: [facility] Work Phone: 05-24-2022 10:15-0500 Body surface area Derived from formula 1.83 m2 Jamari L Chavez Work Phone: [facility] Work Phone: 05-24-2022 10:15-0500 Body weight 81.64 kg Jamari L Chavez Work Phone: [facility] Work Phone: 05-24-2022 10:15-0500 Diastolic blood pressure 82 mm[Hg] Jamari L Chavez Work Phone: [facility] Work Phone: 05-24-2022 10:15-0500 Heart rate 94 /min Jamari L Chavez Work Phone: [facility] Work Phone: 05-24-2022 10:15-0500 Systolic blood pressure 100 mm[Hg] Jamari L Chavez Work Phone: [facility] Work Phone: 01-04-2022 13:47-0400 Body height 157.48 cm Jamari L Chavez Work Phone: [facility] Work Phone: 01-04-2022 13:47-0400 Body mass index (BMI) [Ratio] 30.91 kg/m2 Jamari L Chavez Work Phone: [facility] Work Phone: 01-04-2022 13:47-0400 Body surface area Derived from formula 1.78 m2 Jamari L Chavez Work Phone: [facility] Work Phone: 01-04-2022 13:47-0400 Body weight 76.65 kg Jamari L Chavez Work Phone: [facility] Work Phone: 01-04-2022 13:47-0400 Diastolic blood pressure 78 mm[Hg] Jamari L Chavez Work Phone: [facility] Work Phone: 01-04-2022 13:47-0400 Heart rate 80 /min Jamari L Chavez Work Phone: [facility] Work Phone: 01-04-2022 13:47-0400 Systolic blood pressure 108 mm[Hg] Jamari L Chavez Work Phone: [facility] Work Phone: 12-25-2021 08:36-0400 Body height 157.48 cm Jamari L Chavez Work Phone: [place] [address] [address] Work Phone: 12-25-2021 08:36-0400 Body mass index (BMI) [Ratio] 30.36 kg/m2 Jamari L Chavez Work Phone: [place] [address] [address] Work Phone: 12-25-2021 08:36-0400 Body surface area Derived from formula 1.77 m2 Jamari L Chavez Work Phone: [place] [address] [address] Work Phone: 12-25-2021 08:36-0400 Body weight 75.3 kg Jamari L Chavez Work Phone: [place] [address] [address] Work Phone: 12-25-2021 08:36-0400 Diastolic blood pressure 76 mm[Hg] Jamari L Chavez Work Phone: [place] [address] [address] Work Phone: 12-25-2021 08:36-0400 Systolic blood pressure 116 mm[Hg] Jamari L Chavez Work Phone: [address] Work Phone: 12-17-2021 09:02-0400 Body height 157.48 cm Jamari L Chavez Work Phone: [address] Work Phone: 12-17-2021 09:02-0400 Body mass index (BMI) [Ratio] 30.44 kg/m2 Jamari L Chavez Work Phone: [address] Work Phone: 12-17-2021 09:02-0400 Body surface area Derived from formula 1.77 m2 Jamari L Chavez Work Phone: [address] Work Phone: 12-17-2021 09:02-0400 Body weight 75.5 kg Jamari L Chavez Work Phone: [address] Work Phone: 12-17-2021 09:02-0400 Diastolic blood pressure 76 mm[Hg] Jamari L Chavez Work Phone: [address] Work Phone: 12-17-2021 09:02-0400 Systolic blood pressure 112 mm[Hg] Jamari L Chavez Work Phone: [address] Work Phone: 11-26-2021 09:02-0400 Body height 157.48 cm Jamari L Chavez Work Phone: [address] Work Phone: 11-26-2021 09:02-0400 Body mass index (BMI) [Ratio] 31.09 kg/m2 Jamari L Chavez Work Phone: [address] Work Phone: 11-26-2021 09:02-0400 Body surface area Derived from formula 1.78 m2 Jamari L Chavez Work Phone: [address] Work Phone: 11-26-2021 09:02-0400 Body weight 77.11 kg Jamari L Chavez Work Phone: [address] Work Phone: 11-26-2021 09:02-0400 Diastolic blood pressure 82 mm[Hg] Jamari L Chavez Work Phone: [address] Work Phone: 11-26-2021 09:02-0400 Systolic blood pressure 118 mm[Hg] Jamari L Chavez Work Phone: [address] Work Phone: 11-12-2021 10:17-0400 Body height 159.5 cm Jamari L Chavez Work Phone: [facility] Work Phone: 11-12-2021 10:17-0400 Body mass index (BMI) [Ratio] 30.95 kg/m2 Jamari L Chavez Work Phone: [facility] Work Phone: 11-12-2021 10:17-0400 Body surface area Derived from formula 1.82 m2 Jamari L Chavez Work Phone: [facility] Work Phone: 11-12-2021 10:17-0400 Body weight 78.74 kg Jamari L Chavez Work Phone: [facility] Work Phone: 11-12-2021 10:17-0400 Diastolic blood pressure 70 mm[Hg] Jamari L Chavez Work Phone: [facility] Work Phone: 11-12-2021 10:17-0400 Heart rate 95 /min Jamari L Chavez Work Phone: [facility] Work Phone: 11-12-2021 10:17-0400 Systolic blood pressure 104 mm[Hg] Jaamri L Chavez Work Phone: [facility] Work Phone: 01-04-2021 10:07-0400 Body height 159.99 cm Rich L Oberhauser Work Phone: [facility] Work Phone: 01-04-2021 10:07-0400 Body mass index (BMI) [Ratio] 32.96 kg/m2 Rich L Oberhauser Work Phone: [facility] Work Phone: 01-04-2021 10:07-0400 Body surface area Derived from formula 1.87 m2 Rich L Oberhauser Work Phone: [facility] Work Phone: 01-04-2021 10:07-0400 Body temperature 97.9 [degF] Rich L Oberhauser Work Phone: [facility] Work Phone: 01-04-2021 10:07-0400 Body weight 84.37 kg Rich L Oberhauser Work Phone: [facility] Work Phone: 01-04-2021 10:07-0400 Diastolic blood pressure 79 mm[Hg] Rich L Oberhauser Work Phone: [facility] Work Phone: 01-04-2021 10:07-0400 Heart rate 100 /min Rich L Oberhauser Work Phone: [facility] Work Phone: 01-04-2021 10:07-0400 Systolic blood pressure 125 mm[Hg] Rich L Oberhauser Work Phone: [facility] Work Phone: 11-02-2020 15:58-0400 Body height 159.99 cm Rich L Oberhauser Work Phone: [facility] Work Phone: 11-02-2020 15:58-0400 Body mass index (BMI) [Ratio] 32.96 kg/m2 Rich L Oberhauser Work Phone: [facility] Work Phone: 11-02-2020 15:58-0400 Body surface area Derived from formula 1.87 m2 Rich L Oberhauser Work Phone: [facility] Work Phone: 11-02-2020 15:58-0400 Body temperature 97.8 [degF] Rich L Oberhauser Work Phone: [facility] Work Phone: 11-02-2020 15:58-0400 Body weight 84.37 kg Rich L Oberhauser Work Phone: [facility] Work Phone: 11-02-2020 15:58-0400 Diastolic blood pressure 77 mm[Hg] Rich L Oberhauser Work Phone: [facility] Work Phone: 11-02-2020 15:58-0400 Heart rate 106 /min Rich L Oberhauser Work Phone: [facility] Work Phone: 11-02-2020 15:58-0400 Systolic blood pressure 120 mm[Hg] Rich L Obnomanlalonoman Work Phone: [facility] Work Phone: 10-24-2020 04:00-0400 Diastolic blood pressure 76 mm[Hg] Rich Oberlaloer Other Phone: [facility] 10-24-2020 04:00-0400 Heart rate 96 /min Rich Ng Other Phone: [facility] 10-24-2020 04:00-0400 Respiratory rate 18 /min Richmagy Galavizlalonoman Other Phone: [facility] 10-24-2020 04:00-0400 SaO2% (BldA) [Mass fraction] 95 % Rich Ng Other Phone: [facility] 10-24-2020 04:00-0400 Systolic blood pressure 115 mm[Hg] Rich Oberlalonoman Other Phone: [facility] 12-08-2019 08:09-0400 BMI (Body Mass Index) 29.23 kg/m2 [facility] 12-08-2019 08:09-0400 Body weight 74.84 kg [facility] 12-08-2019 08:09-0400 BP Diastolic 82 mm[Hg] [facility] 12-08-2019 08:09-0400 BP Systolic 128 mm[Hg] Srini [facility] 12-08-2019 08:09-0400 [facility] 12-08-2019 08:09-0400 Pulse (Heart Rate) 103 /min Srini [facility] 12-08-2019 08:09-0400 Pulse Oximetry 97 % [facility] 12-08-2019 08:09-0400 Respiratory Rate 16 /min [facility] 09-29-2019 17:47-0400 BMI (Body Mass Index) 28.18 kg/m2 Rich Monacoerlaloer [facility] Work Phone: 09-29-2019 17:47-0400 Body Temperature 98.5 [degF] Rich Ng [facility] Work Phone: 09-29-2019 17:47-0400 Body weight 72.12 kg Rich Ng [facility] Work Phone: 09-29-2019 17:47-0400 BP Diastolic 93 mm[Hg] Rich Ng [facility] Work Phone: 09-29-2019 17:47-0400 BP Systolic 136 mm[Hg] Rich Ng [facility] Work Phone: 09-29-2019 17:47-0400 BSA (Body Surface Area) 1.75 m2 Rich Ng [facility] Work Phone: 09-29-2019 17:47-0400 Height 159.99 cm Rich Ng [facility] Work Phone: 09-29-2019 17:47-0400 Pulse (Heart Rate) 101 /min Rich Ng [facility] Work Phone: 09-27-2019 16:07-0400 BMI (Body Mass Index) 28.17 kg/m2 Rich Ng [facility] Work Phone: 09-27-2019 16:07-0400 Body weight 72.12 kg Rich Ng [facility] Work Phone: 09-27-2019 16:07-0400 BP Diastolic 78 mm[Hg] Rich Ng [facility] Work Phone: 09-27-2019 16:07-0400 BP Systolic 128 mm[Hg] Rich Ng [facility] Work Phone: 09-27-2019 16:07-0400 BSA (Body Surface Area) 1.75 m2 Rich Ng [facility] Work Phone: 09-27-2019 16:07-0400 Height 160 cm Rich Obdavid [facility] Work Phone: 05-19-2019 11:48-0500 BMI (Body Mass Index) 29.8 kg/m2 Junodany Blackburn [facility] [address] Work Phone: 05-19-2019 11:48-0500 Body weight 76.3 kg Junodany Blackburn [facility] [address] Work Phone: 05-19-2019 11:48-0500 BP Diastolic 70 mm[Hg] Juno Bolivar [facility] [address] Work Phone: 05-19-2019 11:48-0500 BP Systolic 110 mm[Hg] Junodany Leónir [facility] [address] Work Phone: 05-19-2019 11:48-0500 BSA (Body Surface Area) 1.8 m2 Junodany Leónir [facility] [address] Work Phone: 05-19-2019 11:48-0500 Height 160.02 cm Juno Leónir [facility] [address] Work Phone: 05-13-2019 16:36-0500 BMI (Body Mass Index) 24.88 kg/m2 Juno Blackburn [facility] [address] Work Phone: 05-13-2019 16:36-0500 Body weight 63.7 kg Junodany Leónir [facility] [address] Work Phone: 05-13-2019 16:36-0500 BP Diastolic 68 mm[Hg] Juno Bolivar [facility] [address] Work Phone: 05-13-2019 16:36-0500 BP Systolic 100 mm[Hg] Juno Bolivar [facility] [address] Work Phone: 05-13-2019 16:36-0500 BSA (Body Surface Area) 1.66 m2 Juno Blackburn [facility] [address] Work Phone: 05-13-2019 16:36-0500 Height 160.02 cm Juno Blackburn [facility] [address] Work Phone: 03-21-2019 22:15-0400 BMI (Body Mass Index) 27.63 kg/m2 [facility] 03-21-2019 22:15-0400 Body weight 70.76 kg [facility] 03-21-2019 22:15-0400 Height 160 cm [facility] 03-21-2019 22:13-0400 Body Temperature 98.91 [degF] [facility] 03-21-2019 22:13-0400 BP Diastolic 77 mm[Hg] [facility] 03-21-2019 22:13-0400 BP Systolic 114 mm[Hg] [facility] 03-21-2019 22:13-0400 Pulse (Heart Rate) 84 /min [facility] 03-21-2019 22:13-0400 Pulse Oximetry 98 % [facility] 03-21-2019 22:13-0400 Respiratory Rate 18 /min [facility] 03-11-2019 10:55-0400 Body Temperature 98.49 [degF] [facility] 03-11-2019 10:55-0400 BP Diastolic 65 mm[Hg] [facility] 03-11-2019 10:55-0400 BP Systolic 119 mm[Hg] [facility] 03-11-2019 10:55-0400 Pulse (Heart Rate) 78 /min [facility] 03-11-2019 10:55-0400 Pulse Oximetry 97 % [facility] 03-11-2019 10:55-0400 Respiratory Rate 16 /min [facility] 03-11-2019 10:53-0400 BMI (Body Mass Index) 27.63 kg/m2 [facility] 03-11-2019 10:53-0400 Body weight 70.76 kg [facility] 03-11-2019 10:53-0400 Height 160 cm Charlie Cannon [facility] 02-10-2019 19:22-0400 BP Diastolic 86 mm[Hg] [facility] 02-10-2019 19:22-0400 BP Systolic 123 mm[Hg] [facility] 02-10-2019 19:22-0400 Pulse (Heart Rate) 86 /min [facility] 02-10-2019 19:22-0400 Pulse Oximetry 97 % [facility] 02-10-2019 19:22-0400 Respiratory Rate 16 /min [facility] 02-10-2019 17:11-0400 Body Temperature 97.3 [degF] [facility] 10-07-2018 01:36-0400 Body Temperature 98.01 [degF] [facility] 10-07-2018 01:36-0400 BP Diastolic 73 mm[Hg] [facility] 10-07-2018 01:36-0400 BP Systolic 113 mm[Hg] [facility] 10-07-2018 01:36-0400 Pulse (Heart Rate) 85 /min [facility] 10-07-2018 01:36-0400 Pulse Oximetry 97 % [facility] 10-07-2018 01:36-0400 Respiratory Rate 18 /min [facility] 10-06-2018 23:01-0400 BMI (Body Mass Index) 31.53 kg/m2 [facility] 10-06-2018 23:01-0400 Body weight 80.74 kg [facility] 10-06-2018 23:01-0400 Height 160 cm [facility] 10-05-2018 00:24-0400 Body Temperature 98.29 [degF] [facility] 10-05-2018 00:24-0400 BP Diastolic 90 mm[Hg] [facility] 10-05-2018 00:24-0400 BP Systolic 141 mm[Hg] [facility] 10-05-2018 00:24-0400 Pulse (Heart Rate) 82 /min [facility] 10-05-2018 00:24-0400 Pulse Oximetry 97 % [facility] 10-05-2018 00:24-0400 Respiratory Rate 20 /min David Katie [facility] 10-04-2018 21:38-0400 Respiratory rate 16 /min [facility] 10-04-2018 19:31-0400 BMI (Body Mass Index) 31.53 kg/m2 [facility] 10-04-2018 19:31-0400 Body weight 80.[address] [facility] 10-04-2018 19:31-0400 Height [address] [facility] 09-12-2018 23:29-0400 Pulse (Heart Rate) 113 /min [facility] 09-12-2018 23:29-0400 Pulse Oximetry 97 % [facility] [employer] 09-12-2018 23:16-0400 Body Temperature 98.49 [degF] [facility] 09-12-2018 22:34-0400 BP Diastolic 66 mm[Hg] [facility] [employer] [facility] 09-12-2018 22:34-0400 BP Systolic 117 mm[Hg] [facility] 09-12-2018 22:34-0400 Respiratory Rate 16 /min [facility] 09-12-2018 21:16-0400 BMI (Body Mass Index) 31 kg/m2 [facility] 09-12-2018 21:16-0400 Height 160 cm [facility] 09-12-2018 21:16-0400 Weight 79.38 kg [facility] [employer] [facility] Comment on above: [facility] 02-01-2018 21:30-0400 Body temperature 37.0 [employer] [facility] Comment on above: Performed By: #### VBG #### Unless otherwise noted, all testing performed by [facility] [place] [address] [address] [place] [place] [id number] CLIA: [id number] Administrative Services Manager: Cristofer Perry M.D. Encounters Encounter Date Encounter Type Care Provider Facility Start: 03-09-2025 End: 03-09-2025 ambulatory [facility] Ambulatory Start: 03-09-2025 End: 03-09-2025 Office outpatient visit 25 minutes Jamari Byrne MD Work Phone: [facility] Comment on above: Diabetic gastropares is associated with type 2 diabetes mellitus (Multi) (Primary Dx); Anxiety and depression; Gastroesophageal reflux disease, 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 esophagitis present Start: 02-22-2025 End: 02-22-2025 ambulatory Kelsy Gonzalez Radha DO Work Phone: Endocrinology Comment on above: Diabetic Start: 02-21-2025 End: 02-21-2025 Office outpatient visit 15 minutes Leonie Galarza INTERNATIONAL LOGISTICS ANALYST-BLEACHER PULP Work Phone: [facility] Comment on above: Cough, unspecified t ype (Primary Dx); Acute upper respiratory infection Start: 02-21-2025 ambulatory [facility] Start: 02-19-2025 End: 02-19-2025 Patient encounter procedure Ángela Norris INTERNATIONAL LOGISTICS ANALYST.BLEACHER PULP Work Phone: [facility] Comment on above: Bacterial sinusitis (Primary Dx); Nausea; Postnasal drip Start: 02-19-2025 End: 02-20-2025 ambulatory [facility] Facility:[facility] Start: 02-01-2025 End: 02-01-2025 Telephone encounter Kelsy Guillermo DO Work Phone: Endocrinology Comment on above: insulin concern Start: 01-31-2025 End: 01-31-2025 Office outpatient visit 25 minutes Jamari Byrne MD Work Phone: [facility] Comment on above: Exercise-induced ast hma (Primary Dx); Hyperglycemia due to diabetes mellitus (Multi); Anxiety and depression Start: 01-31-2025 End: 01-31-2025 ambulatory [facility] Amb[facility] Start: 01-29-2025 End: 01-29-2025 Emergency department patient visit [facility] Start: 01-28-2025 End: 01-28-2025 Patient encounter procedure Issac Romero INTERNATIONAL LOGISTICS ANALYST.BLEACHER PULP Work Phone: [facility] [place] [facility] Comment on above: Gastritis with hemor rhage, unspecified chronicity, unspecified gastritis type (Primary Dx); Nausea and vomiting, unspecified vomiting type; Gastro-esophageal reflux disease without esophagitis; SHIRA (generalized anxiety disorder) Start: 01-28-2025 End: 01-28-2025 ambulatory JAMARI BYRNE Facility:[facility] Start: 01-28-2025 Encounter for other preprocedural examination Whit BaiSchulte [facility] Start: 2025 End: 01-28-2025 Telephone encounter Whit Schulte MD Work Phone: OB/Gynecology Comment on above: Preparations For Jazz estevan Start: 01-26-2025 End: 01-26-2025 Emergency department patient visit Dr. Jamari Byrne MD Work Phone: -Emergency Department Work Phone: Start: 01-24-2025 End: 01-24-2025 Emergency department patient visit Ty Shannon DO Work Phone: [facility] Emergency Medicine Comment on above: Acute chest pain (Pr imary Dx) Start: 01-23-2025 End: 01-23-2025 Emergency department patient visit Dr. Jamari Byrne MD Work Phone: -Emergency Department Work Phone: Start: 01-21-2025 ambulatory [facility] Facility[facility] Start: 01-20-2025 End: 01-21-2025 Emergency department patient visit Dr. 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, 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, 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 alf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 (HCC) (Primary Dx) Start: 01-20-2025 End: 01-20-2025 ambulatory JAMARI BYRNE Facility:[facility] Start: 01-19-2025 End: 01-19-2025 Patient encounter procedure Whit Schulte MD Work Phone: OB/Gynecology Comment on above: care and examination (HCC) (Primary Dx); Request for sterilization; Pre-op exam Start: 01-19-2025 End: 01-19-2025 Preprocedural examination done Whit Schulte MD Work Phone: [facility] Start: 01-19-2025 End: 01-19-2025 ambulatory WHIT SCHULTE Facility:[facility] Start: 01-19-2025 Encounter for other preprocedural examination WHIT SCHULTE [facility] Start: 12-31-2024 End: 12-31-2024 ambulatory Saranya Fv Ob L&D Work Phone: [facility] 3 L&D Comment on above: M-Power Feedback Start: 12-31-2024 End: 12-31-2024 E-mail encounter from caregiver Saranya Ob L&D Work Phone: [facility] 3 L&D Start: 12-21-2024 End: 12-21-2024 Patient encounter procedure William Gramajo MD Work Phone: OB/Gynecology Comment on above: care and examination immediately after delivery (HCC) (Primary Dx) Start: 12-21-2024 End: 12-21-2024 ambulatory WILLIAM GRAMAJO Facility:[facility] Start: 12-16-2024 End: 12-16-[address] Jamari Byrne MD Work Phone: [facility] Start: 12-16-2024 End: 12-16-2024 Patient encounter procedure Mariajose Nickerson CNM -[facility] Work Phone: Start: 12-16-2024 End: 12-17-2024 Telephone encounter Mariajose Nickerson APRNGALLO Work Phone: OB/Gynecology Comment on above: Care [...] of inpatient Dr. William Gramajo MD [facility] Work Phone: Start: 12-06-2024 End: 02-05-2025 Follow-up encounter Lucy Mariscal APRN.CNP Work Phone: OB/Gynecology Start: 12-06-2024 End: 12-06-2024 Telephone encounter Kelsy Guillermo DO Work Phone: Endocrinology Comment on above: Blood Sugar Reading Start: 12-06-2024 End: 12-06-2024 Patient encounter procedure Whi Tech 1 Paper Deliverer [facility] Comment on above: Pre-existing type 2 diabetes mellitus in in first trimester (HCC) (Primary Dx); 38 weeks gestation of (HCC) Pre-existing type 2 diabetes mellitus in in third trimester (HCC) (Primary Dx); Supervision of high risk in third trimester ([facility]); History of pre-eclampsia; H/O macrosomia in infant in prior , currently ([facility]); Chromosome abnormality (HCC); 38 weeks gestation of (HCC) Start: 12-06-2024 End: 12-06-2024 ambulatory PIPER JULIAN Facility:[facility] Start: 12-06-2024 ambulatory Jamari Byrne Facility: [facility] Start: 12-02-2024 End: 12-02-2024 E-mail [...] 11-30-2024 Patient encounter procedure Whi Tech 1 Paper Deliverer [facility] Comment on above: Pre-existing type 2 diabetes mellitus in in third trimester (HCC) (Primary Dx); Pre-existing type 2 diabetes mellitus in in first trimester (HCC) Start: 11-30-2024 End: 11-30-2024 ambulatory [facility] Facility:[facility] Start: 11-25-2024 End: 11-25-2024 Telephone encounter Kelsy Guillermo DO Work Phone: Endocrinology Comment on above: Blood Sugar Reading Start: 11-25-2024 End: 11-25-2024 Patient encounter procedure William Gramajo MD Work Phone: OB/Gynecology Comment on above: History of herpes ge nitalis (Primary Dx); Pre-existing type 2 diabetes mellitus in in third trimester (HCC); History of pre-eclampsia; 36 weeks gestation of ([facility]) Start: 11-25-2024 End: 11-25-2024 ambulatory [facility] Facility:[facility] Start: 11-22-2024 End: 01-22-2025 Follow-up encounter Lucy Mariscal APRN.CNP Work Phone: OB/Gynecology Start: 11-22-2024 End: 11-22-2024 Patient encounter procedure Whi Tech 1 Paper Deliverer [facility] Comment on above: Obesity affecting pr egnancy in first trimester, unspecified obesity type (HCC) (Primary Dx); Pre-existing type 2 diabetes mellitus in in first trimester (HCC) Start: 11-22-2024 End: 11-22-2024 ambulatory JAMARI BYRNE Facility:[facility] Start: 11-18-2024 End: 11-18-2024 Patient encounter procedure Keshav Loving MD Work Phone: OB/Gynecology Comment on above: Pre-existing type 2 diabetes mellitus in in third trimester (HCC) (Primary Dx); 35 weeks gestation of (HCC); Vaginal itching Start: 11-18-2024 End: 11-18-2024 ambulatory JAMARI BYRNE Facility:[facility] Start: 11-16-2024 End: 11-16-2024 Telephone encounter Kelsy Guillermo DO Work Phone: Endocrinology Comment on above: Blood Sugar Reading Start: 11-15-2024 End: 11-15-[address] Jamari Byrne MD Work Phone: [facility] Work Phone: Start: 11-15-2024 End: 11-15-[address] Whit Patel MD -[facility] Work Phone: Start: 11-15-2024 End: 11-15-2024 [...] of (HCC) Start: 11-15-2024 End: 11-15-2024 ambulatory JAMARI BYRNE Facility:[facility] Start: 11-11-2024 End: 11-11-2024 Office outpatient visit 15 minutes Krys Kulkarni MD Work Phone: OB/Gynecology Comment on above: Pre-existing type 2 diabetes mellitus in in third trimester (HCC) (Primary Dx); pruritus, third trimester (HCC); History of pre-eclampsia; H/O macrosomia in infant in prior , currently (HCC); Chromosome abnormality (HCC); complication before (HCC); 34 weeks gestation of (HCC) Start: 11-11-2024 End: 11-11-2024 [facility] Facility:[facility] Start: 11-08-2024 End: 01-08-2025 Follow-up encounter Krys Kulkarni MD Work Phone: OB/Gynecology Start: 11-08-2024 End: 11-08-2024 Patient encounter procedure Whi Tech 1 Paper Deliverer [facility] Comment on above: Pre-existing type 2 diabetes mellitus in in first trimester ([facility]) (Primary Dx); 34 weeks gestation of ([facility]) Start: 11-08-2024 End: 11-08-2024 [facility] Facility:[facility] Start: 11-05-2024 End: 11-05-2024 [facility] Facility:[facility] Start: 11-05-2024 End: 11-05-2024 Initial preventive medicine new pt age 12-17 yr Krys Kulkarni MD Work Phone: OB/Gynecology Comment on above: 33 weeks gestation o f ([facility]) (Primary Dx); complication before ([facility]); Pre-existing type 2 diabetes mellitus in in third trimester ([facility]); Supervision of high risk in third trimester ([facility]); pruritus, third trimester ([facility]) Start: 11-05-2024 End: 11-05-2024 [facility] Facility:[facility] Start: 11-04-2024 End: 11-04-2024 Subsequent hospital visit by physician Saranya Mcdonald Ob L&D Work Phone: OB/Gynecology Comment on above: complicati on before ([facility]) [O99.891] Start: 11-04-2024 End: 11-04-2024 Nutrition therapy [...] 11-02-2024 Patient encounter procedure Whi Tech 1 Paper Deliverer [facility] Comment on [...] Start: 11-02-2024 End: 11-02-2024 ambulatory JAMARI BYRNE Facility:[facility] Start: 10-29-2024 End: 11-22-2024 Follow-up encounter Piper Julian MD Work Phone: OB/Gynecology Start: 10-29-2024 End: 11-03-2024 Telephone encounter Piper Julian MD Work Phone: OB/Gynecology Comment on above: Breast Pump Start: 10-28-2024 End: 10-28-2024 ambulatory PIPER JULIAN Facility:[facility] Start: 10-25-2024 End: 10-25-2024 ambulatory PIPER JULIAN Facility:[facility] Start: 10-25-2024 End: 10-25-2024 Patient encounter procedure Piper Julian MD Work Phone: OB/Gynecology Comment on above: Supervision of high risk in third trimester (HCC) (Primary Dx); Pre-existing type 2 diabetes mellitus in in third trimester (HCC); Exposure to parvovirus; History of pre-eclampsia Start: 10-25-2024 End: 10-25-2024 ambulatory JAMARI BYRNE Facility:[facility] Start: 10-20-2024 End: 10-20-2024 ambulatory Piper Julian MD Work Phone: OB/Gynecology Comment on above: results Start: 10-20-2024 End: 10-20-2024 E-mail encounter from caregiver Piper Julian MD Work Phone: OB/Gynecology Start: 10-19-2024 End: 10-19-2024 Telephone encounter Kelsy Guillermo DO Work Phone: Endocrinology Comment on above: Blood Sugar Reading Start: 10-18-2024 End: 10-18-2024 E-mail encounter from caregiver Saranya Cisiv Ob L&D Work Phone: [employer] Start: 10-18-2024 End: 10-18-2024 Patient [...] History of pre-eclampsia; 31 weeks gestation of ([facility]) Start: 10-18-2024 End: 10-18-2024 ambulatory Saranya Fv Ob L&D Work Phone: [facility] [facility] Comment on above: M-Power Time to Jose A shoemaker Start: 10-16-2024 End: 10-16-[address] Jamari Byrne MD Work Phone: [facility] Work Phone: Start: 10-16-2024 End: 10-16-2024 Patient encounter procedure [facility]ose [facility]erson [facility] Work Phone: Start: 10-12-2024 End: 10-12-2024 [...] stable proliferative retinopathy, 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, 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 alf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 (HCC); Herpes simplex type 2 (HSV-2) infection affecting , antepartum, unspecified trimester (HCC) Start: 10-04-2024 End: 10-04-2024 ambulatory JAMARI BYRNE Facility:[facility] Start: 09-29-2024 End: 11-29-2024 Follow-up encounter Leonie [...] ambulatory Dr. Jamari Byrne MD Work Phone: [facility] Work Phone: Start: 09-24-2024 End: 09-24-2024 Patient encounter procedure Leon[facility] Waldron [facility] Work Phone: Start: 09-24-2024 End: 09-24-2024 Patient encounter procedure Mary GOODWIN Work Phone: [facility] Comment on above: Procedure not gisselle d out (Primary Dx) Start: 09-24-2024 End: 09-24-2024 ambulatory JAMARI BYRNE Facility:[facility] Start: 09-23-2024 End: 09-24-2024 Refill Kelsy Guillermo DO Work Phone: Endocrinology Comment on above: Refill Request Start: 09-20-2024 End: 11-20-2024 Follow-up encounter Kelsy Guillermo DO Work Phone: Endocrinology Start: 09-20-2024 End: 09-20-2024 ambulatory JAMARI BYRNE Facility:[facility] Start: 09-20-2024 End: 09-20-2024 Patient encounter procedure Kelsy uGillermo DO Work Phone: Endocrinology Comment on above: Type 2 diabetes lazaro itus during , antepartum, third trimester (HCC) (Primary Dx); Insulin controlled gestational diabetes mellitus (GDM) in first trimester (HCC); High-risk , third trimester (HCC) Start: 09-14-2024 End: 09-14-2024 E-mail encounter from caregiver Saranya Mcdonald Ob L&D Work Phone: [facility] 3 L&D Start: 09-14-2024 End: 09-14-2024 Patient encounter procedure Saranya Mcdonald Ob L&D Work Phone: [facility] 3 L&D Comment on above: M-Power [...] Start: 09-08-2024 End: 09-08-2024 ambulatory JAMARI BYRNE Facility:[facility] Start: 09-07-2024 End: 10-20-2024 Telephone encounter Kelsy Guillermo DO Work Phone: Endocrinology Comment on above: Blood Sugar Reading Patient Question Start: 09-07-2024 End: 09-07-2024 ambulatory JAMARI BYRNE Facility:[facility] Start: 09-07-2024 End: 09-07-2024 Patient encounter procedure [...] 15 minutes Jamari Byrne MD Work Phone: [facility] Comment on above: Exercise-induced ast hma (HHS-HCC); Bipolar depression ([facility]) Start: 09-06-2024 End: 09-06-2024 ambulatory [facility] Start: 09-04-2024 End: 09-06-2024 Refill William Gramajo MD Work Phone: OB/Gynecology Comment on above: Med Change Request Start: 09-03-2024 End: 11-03-2024 Follow-up encounter William Gramajo MD Work Phone: OB/Gynecology Start: 09-02-2024 End: 09-02-2024 ambulatory [facility] Facility:[facility] Start: 09-02-2024 End: 09-02-2024 Patient encounter procedure Whi Tech 1 Paper Deliverer [facility] Comment on [...] call Start: 08-10-2024 End: 08-10-2024 ambulatory JAMARI BYRNE Facility:[facility] Start: 08-10-2024 End: 08-10-2024 Patient encounter procedure Whi Tech 1 Paper Deliverer [facility] Comment on [...] 07-26-2024 End: 07-26-2024 ambulatory JAMARI Gonzalez CHAVEZ Facility:[facility] Start: 07-26-2024 End: 07-26-2024 Patient encounter procedure Kelsy Gonzalez Radha Work Phone: Endocrinology Comment on above: Type 2 diabetes lazaro itus complicating , antepartum, second trimester (Primary Dx); Insulin controlled gestational diabetes mellitus (GDM) in first trimester; High-risk , second trimester Start: 07-23-2024 End: 07-23-2024 ambulatory [facility] Facility:[facility] Start: 07-23-2024 End: 07-23-2024 Patient encounter procedure [...] Sugar Reading Start: 07-13-2024 End: 07-13-2024 ambulatory [facility] Facility:[facility] Start: 07-13-2024 End: 07-13-2024 Patient encounter procedure Whi Tech 1 Paper Deliverer [facility] Comment on [...] patient visit Sixto Myers MD Work Phone: [facility] Emergency [facility] Comment on above: Influenza [...] Endocrinology Start: 06-15-2024 End: 06-15-2024 ambulatory JAMARI [employer] [facility] Facility:[facility] Start: 06-15-2024 End: 06-15-2024 Patient encounter procedure Whi Tech 1 Paper Deliverer [facility] Comment on above: Encounter for shreya boone screening for malformation using ultrasound (Primary Dx); 13 weeks gestation of H/O macrosomia in in [place] in prior , currently ; Pre-existing type 2 diabetes mellitus in in first trimester; History of pre-eclampsia Start: 06-15-2024 End: 06-15-2024 ambulatory JAMARI L CHAVEZ Facility:[facility] Start: 06-12-2024 End: 06-14-2024 ambulatory Kelsy Guillermo DO Work Phone: Endocrinology Comment on above: Glucose monitor Start: 06-11-2024 End: 06-11-2024 Telephone encounter Kelsy Guillermo DO Work Phone: Endocrinology Comment on above: Blood Sugar Reading Start: 06-07-2024 End: 06-07-2024 ambulatory JAMARI BYRNE Facility:[facility] Start: 06-07-2024 End: 06-07-2024 Patient encounter procedure [...] Start: 05-26-2024 End: 05-26-2024 ambulatory JAMARI Lisa [facility] Facility:[facility] Start: 05-26-2024 End: 05-26-2024 Office outpatient visit [...] patient visit Reza Dyer DO Work Phone: [facility] Comment on above: Abdominal pain durin g in first trimester (HHS-HCC) (Primary Dx) Start: 05-20-2024 End: 05-25-2024 Telephone encounter Piper Julian MD Work Phone: OB/Gynecology Comment on above: Blood Sugar Reading Start: 05-17-2024 End: 05-17-2024 ambulatory Kelsy Gonzalez Radha DO Work Phone: Endocrinology Comment on above: Insulin Start: 05-17-2024 End: 05-17-2024 Telephone encounter Kelsy Lisa Ruffst DO Work Phone: Endocrinology Comment on above: Blood Sugar Reading Start: 05-11-2024 End: 05-11-2024 Social Work Ana Sawyer [employer] Start: 05-10-2024 End: 05-10-2024 Telephone encounter Zayda Parker APRN.BLEACHER PULP Work Phone: OB/Gynecology Comment on above: Results Start: 05-09-2024 End: 05-09-2024 Telephone encounter Kelsy Gonzalez Radha DO Work Phone: Endocrinology Comment on above: Blood Sugar Reading Start: 05-07-2024 End: 05-07-2024 ambulatory JAMARI BYRNE Facility:[facility] Start: 05-07-2024 End: 05-07-2024 Patient encounter procedure Zayda Parker APRN.CNP Work Phone: OB/Gynecology Comment on above: Encounter [...] cervical cancer Start: 05-04-2024 End: 05-04-2024 ambulatory JAMARI [facility] Ambulatory Start: 05-04-2024 End: 05-04-2024 Office outpatient visit 15 minutes Jamari Byrne MD Work Phone: [facility] Comment on above: Bipolar depression ( Multi) (Primary Dx); Hyperglycemia due to diabetes mellitus (Multi); Cigarette nicotine dependence with other nicotine-induced disorder Start: 05-03-2024 End: 05-03-2024 ambulatory JAMARI BYRNE Facility:[facility] Start: 05-03-2024 End: 05-03-2024 Patient encounter procedure [...] End: 04-30-2024 ambulatory Tee Li RN NURSE THEATRE INSTRUCTOR Comment on above: Blood Sugar Elevatio n (/) Start: 04-28-2024 End: 04-28-2024 Office outpatient visit 25 minutes Joanie Hurtado APRN-BLEACHER PULP Work Phone: [facility] Comment on above: Bacterial vaginosis (Primary Dx); Less than 8 weeks gestation of ([facility] Start: 04-28-2024 End: 04-28-2024 ambulatory JOANIE Varner [facility] Ambulatory Start: 04-23-2024 End: 04-23-2024 Telephone encounter Kelsy Guillermo DO Work Phone: Endocrinology Start: 04-19-2024 End: 04-19-2024 Telephone encounter Zayda Parker APRN.BLEACHER PULP Work Phone: OB/Gynecology Comment on above: Patient Update (ER v isit) Start: 04-18-2024 End: 04-18-2024 Emergency department patient visit JAMARI BYRNE [facility] Comment on above: Urinary tract infect ion in mother during first trimester of (HHS-HCC) (Primary Dx); Herpes simplex vulvovaginitis Start: 04-17-2024 End: 04-17-2024 ambulatory [facility] Start: 04-14-2024 End: 04-15-2024 Emergency department patient visit [facility] Start: 04-14-2024 End: 04-15-2024 Telephone encounter Nurse Paper Deliverer Katalina Hansen Work Phone: Obstetrics/Gynecology Comment on above: Care Coordination Start: 01-23-2024 End: 01-23-2024 Office outpatient visit 15 minutes Jamari Byrne MD Work Phone: [facility] Comment on above: Exercise-induced ast hma ([facility]) (Primary Dx); Hyperglycemia due to diabetes mellitus (Multi); Bipolar depression (Multi); Necrobiosis lipoidica Start: 12-25-2023 End: 12-25-2023 Office outpatient visit 15 minutes Jamari Byrne MD Work Phone: [facility] Comment on above: Necrobiosis lipoidic a (Primary Dx); Hyperglycemia due to diabetes mellitus (Multi) Start: 12-16-2023 End: 12-16-2023 ambulatory [facility] Start: 09-15-2023 End: 09-15-2023 ambulatory [facility] Start: 09-15-2023 End: 09-15-2023 Office outpatient visit 25 minutes Jamari Byrne MD Work Phone: [facility] Comment on above: Sebaceous cyst (Prim stephen Dx); Hyperglycemia due to diabetes mellitus (CMS/HCC); Exercise-induced asthma Start: 08-19-2023 End: 08-19-2023 Patient encounter procedure Mary GOODWIN Work Phone: [facility] Comment on above: Pain, dental (Primar y Dx) Start: 07-10-2023 End: 07-10-2023 Office outpatient visit 15 minutes Jamari Byrne MD Work Phone: [facility] Comment on above: Necrobiosis lipoidic a (Primary Dx); Hyperglycemia due to diabetes mellitus ([facility] Start: 05-09-2023 End: 05-09-2023 Office outpatient visit 15 minutes Jamari Byrne MD Work Phone: [facility] Comment on above: Hyperglycemia due to diabetes mellitus ([facility] Start: 03-17-2023 End: 03-17-2023 Office outpatient visit 15 minutes Jamari Byrne MD Work Phone: [facility] Comment on above: Exercise-induced ast hma (Primary Dx); Hyperglycemia due to diabetes mellitus ([facility]) Start: 12-13-2022 End: 12-13-2022 Office outpatient visit 25 minutes Jamari Byrne MD Work Phone: [facility] Comment on above: Hyperglycemia due to diabetes mellitus ([facility]) Start: 08-17-2022 End: 08-17-2022 ambulatory [facility] Start: 08-17-2022 End: 08-17-2022 Office outpatient visit 25 minutes Lazara Jon DO Work Phone: [facility] Comment on above: Yeast vaginitis (Verito tee Dx); Late menses; Vaginal discharge Start: 05-24-2022 Office outpatient vi sit 15 minutes Jamari L Chavez Work Phone: [facility] Work Phone: Start: 01-04-2022 Office outpatient vi sit 10 minutes Jamari L Chavez Work Phone: [facility] Work Phone: Start: 12-25-2021 Office outpatient vi sit 15 minutes Jamari L Chavez Work Phone: [facility] [employer] Work Phone: Start: 12-17-2021 Office outpatient vi sit 15 minutes Jamari L Chavez Work Phone: [facility] [address] Work Phone: Start: 12-10-2021 Chart Update Jamari iraheta Work Phone: [place] [phone] [address] Work Phone: Start: 11-27-2021 Chart Update Jamari Avalos r Work Phone: [place] [phone] [address] Work Phone: Start: 11-26-2021 Initial preventive medicine new pt age 18-39yrs Jamari Byrne Work Phone: [place] [address] [place] Work Phone: Start: 11-13-2021 AUDIT Jamari Avalos r Work Phone: [facility] Work Phone: Start: 08-03-2021 End: 08-04-2021 ambulatory [facility] Start: 07-03-2021 AUDIT Rich L Oberha user Work Phone: [facility] Work Phone: Start: 05-29-2021 AUDIT Rich L Oberha user Work Phone: [facility] Work Phone: Start: 01-04-2021 Office outpatient vi sit 25 minutes Rich L Oberhauser Work Phone: [facility] Work Phone: Start: 12-26-2020 AUDIT Rich L Oberha user Work Phone: [facility] Work Phone: Start: 11-16-2020 AUDIT Rich L Oberha user Work Phone: [facility] Work Phone: Start: 11-02-2020 Office outpatient vi sit 25 minutes Rich L Oberhauser Work Phone: [facility] Work Phone: Start: 10-23-2020 End: 10-24-2020 Emergency department patient visit Epifanio Sorensen [facility] Emergency 15 Start: 08-24-2020 End: 08-24-2020 Orders Only Tessa Peralta Work Phone: [facility] Start: 07-19-2020 End: 07-20-2020 Patient encounter [facility] Start: 07-19-2020 End: 07-19-2020 Subsequent hospital visit by physician Srini Medina Work Phone: [facility] EEG Comment on above: Seizure (HCC) Start: 07-05-2020 End: 07-05-2020 Patient encounter procedure [facility] Start: 03-21-2020 End: 03-22-2020 Patient encounter procedure [facility] Start: 03-21-2020 End: 03-21-2020 Subsequent hospital visit by physician Maty Chavez Work Phone: [facility] Sleep Lab Comment on above: MG (obstructive sle ep apnea) Start: 03-17-2020 End: 03-17-2020 Patient encounter procedure MATY CHAVEZ [facility] Start: 01-11-2020 Patient encounter procedure Rich Ng [facility] Work Phone: Start: 12-14-2019 Patient encounter procedure Rich Ng [facility] Work Phone: Start: 12-08-2019 End: 12-12-2019 [facility] Start: 12-08-2019 End: 12-08-2019 Office outpatient new 45 minutes Srini Medina Work Phone: [facility] Comment on above: Seizure (HCC) Start: 12-07-2019 [facility] Start: 11-09-2019 Patient encounter procedure Rich Ng [facility] Work Phone: Start: 10-21-2019 Patient encounter procedure Rich Ng [facility] Work Phone: Start: 09-29-2019 Patient encounter procedure Rich Ng [facility] Work Phone: Start: 09-27-2019 Patient encounter procedure Rich Ng [facility] Work Phone: Start: 05-19-2019 Patient encounter procedure Juno Blackburn [facility] [address] [employer] Work Phone: Start: 05-13-2019 Patient encounter procedure Juno Blackburn [facility] [address] Work Phone: Start: 03-21-2019 End: 03-21-2019 Emergency department patient visit Kelsey Stewart Work Phone: [facility] Emergency Department Comment on above: Abdominal cramps (Pr imary Dx); Nausea Start: 03-11-2019 End: 03-11-2019 Emergency department patient visit Charlie Cannon Work Phone: [facility] Emergency Department Comment on above: Anxiety (Primary Dx) Start: 02-10-2019 End: 02-10-2019 Emergency department patient visit Lloyd Quiles Work Phone: [facility] Emergency Department Comment on above: 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) Start: 10-06-2018 End: 10-07-2018 Emergency department patient visit Kelsey Stewart Work Phone: [facility] Emergency Department Comment on above: Viral upper respirat ory infection (Primary Dx) Start: 10-04-2018 End: 10-05-2018 Emergency department patient visit David Wilson Work Phone: [facility] Emergency Department Comment on above: Hyperglycemia (Prima ry Dx); Diabetes mellitus due to underlying condition with hyperosmolarity 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, without long-term current use of insulin (HCC) Start: 09-12-2018 End: 09-12-2018 Emergency department patient visit Verona Hilliard [facility] Emergency Department Start: 07-16-2018 End: 07-16-2018 Emergency department patient visit Kelsey Stewart Facility:[facility] Start: 02-01-2018 End: 02-02-2018 Emergency department patient visit Elie Hernadez Facility:[facility] Start: 01-23-2018 Emergency department patient visit FABIO HAWK [facility] Start: 12-14-2017 End: 12-14-2017 Emergency department patient visit MILLY SINCLAIR Facility: Start: 11-30-2017 End: 11-30-2017 Emergency department patient visit PCP Unknown Physician Facility:[facility] Start: 11-21-2017 End: 11-21-2017 Ambulatory KADE VILLALOBOS Facility:[facility] Start: 11-18-2017 End: 11-19-2017 Patient encounter procedure [facility] Start: 11-15-2017 End: 11-15-2017 Emergency department patient visit VERONA ARMINDA Facility:[facility] Start: 10-09-2017 End: 10-09-2017 Emergency department patient visit VERONA ARMINDA Facility:[facility] Start: 09-28-2017 End: 09-28-2017 Emergency department patient visit VERONA ARMINDA Facility:[facility] Start: 09-18-2017 End: 09-18-2017 Emergency department patient visit JOSIE HERNANDEZ Facility:[facility] Start: 07-03-2017 End: 07-03-2017 Patient encounter procedure [facility] Menarche Rich Lopez er Work Phone: [facility] Work Phone: Comment on above: AGE 15; Procedures Date Procedure Procedure Detail Performing Clinician Start: 02-21-2025 Iaadiadoo influenza Faby Galarza [employer] Work Phone: Start: 02-21-2025 SARS-CoV-2 (COVID-19 ) RNA [Presence] in Unspecified specimen by SUMIT with probe detection Leonie Galarza [employer] Work Phone: Start: 02-19-2025 UA DIP,URINE HCG (POC) Ángela Norris [employer] Work Phone: Start: 01-28-2025 Gluc bld gluc mntr d ev cleared fda spec home use Issac Romero [employer] Work Phone: Start: 01-26-2025 Urnls dip stick/tabl et reagent auto microscopy Dr. Jamari Byrne MD Work Phone: Start: 01-26-[address] Jamari Byrne MD Work Phone: Start: 01-24-2025 Assay of troponin quantitative Ty Escotoersen DO Work Phone: Start: 01-24-2025 Urinalysis complete W Reflex Culture panel - Urine Ty Escotoersen DO Work Phone: Start: 01-24-2025 Urnls dip stick/tabl et reagent auto microscopy Ty Escotoersen DO Work Phone: Start: 01-24-2025 Comprehensive metabolic panel Ty Escotoersen DO Work Phone: Start: 01-24-2025 Troponin I.cardiac p trinh - Serum or Plasma by High sensitivity method Ty Escotoersen DO Work Phone: Start: 01-24-2025 Radiologic exam ches t single view Ty Shannon DO Work Phone: Start: 01-24-2025 Ecg routine ecg w/le ast 12 lds trcg only w/o i&r Ty Shannon DO Work Phone: Start: 01-23-2025 Estimated creatinine [...] uterus after 1st trimest 06/09 gestation William rGamajo MD Work Phone: Start: 08-10-2024 Urnls dip stick/tabl et rgnt non-auto w/o micrscp William Gramajo MD Work Phone: Start: 08-10-2024 Us preg uterus after 1st trimest 06/09 gestation William Gramajo MD Work Phone: Start: 07-13-2024 Urnls dip stick/tabl et rgnt non-auto w/o micrscp William Gramajo MD Work Phone: Start: 07-13-2024 Us preg uterus after 1st trimest / gestation Zayda Erwinjorgito [employer] Work Phone: Start: 07-01-2024 Radiologic exam chest 2 views Sixto Myers MD Work Phone: Start: 07-01-2024 Influenza virus A an d B and SARS-CoV-2 (COVID-19) identified in Respiratory specimen by SUMIT with probe detection Sixto Myers MD Work Phone: Start: 06-15-2024 Us nuchal kraus slucency 1st gestation Zayda Erwinjorgito [employer] Work Phone: Start: 06-07-2024 Hemoglobin A1c/Hemoglobin.total in [...] Comment: Speci men Type: BLOOD SPECIMENOrdering Facility: [facility] Address: [address] [place] [address] Performed By: #### T SPN ####CC MAIN BLOOD BANKCLIA [id number] [place] [address] [place] Start: 05-07-2024 Us uterus l imited /> fetuses Zayda Erwinjorgito [employer] Work Phone: Start: 05-07-2024 Microscopic observat ion [Identifier] in Cervix by Cyto stain Reza Dyer DO Work Phone: Start: 05-03-2024 Hemoglobin A1c/Hemoglobin.total in Blood Kelsy Guillermo DO Work Phone: Start: 04-18-2024 Gonadotropin chorion ic quantitative Angy Staples Viktoriyavimal [employer] Work Phone: Start: 04-18-2024 Urinalysis microscop ic panel - Urine Qualitative by Automated Angy Staples Guera [employer] Work Phone: Start: 04-18-2024 End: 04-18-2024 Iadna chlamydia trachomatis amplified probe tq Angy Staples Bildervimal [employer] Work Phone: Start: 04-18-2024 Urine test visual color cmprsn meths Angy Sierradervimal [employer] Work Phone: Start: 04-15-2024 Urinalysis MILLY Iraheta Comment on above: Result Comment: URIN ALYSIS Performed By: #### 2 [id number] #### [facility],[address] [place] [address] Start: 09-15-2023 Basic metabolic 2000 panel - [...] Start: 07-19-2020 Electroencephalogram w/rec awake&drowsy Srini Kearns Carol Work Phone: Start: 10-21-2019 CT Head without [...] Start: 05-13-2019 Gonadotropin chorion ic quantitative Juno Bolivar Start: 03-22-2019 Choriogonadotropin.b eta subunit ( test) [Presence] in Serum or Plasma Claude Riverasame [employer] Work Phone: Start: 03-22-2019 Urinalysis Claude Wa rsame [employer] Work Phone: Start: 03-11-2019 Ethanol [Mass/volume ] [...] ( test) [Presence] in Urine Lloyd Whitfield Kb Work Phone: Start: 02-10-2019 Drugs of abuse [...] 10-07-2018 Standard chest X-ray Christopher lobato Queenie Devinelloh Work Phone: Start: 10-07-2018 Choriogonadotropin ( test) [Presence] in Urine Kelsey Ruddja Pat Work Phone: Start: 10-07-2018 Urinalysis Kelsey Ruddean andrade Pat Work Phone: Start: 10-07-2018 Glucose [Mass/volume] in Blood [facility] Start: 10-05-2018 End: 10-05-2018 Glucose [Mass/volume] in Blood [facility] Start: 10-05-2018 Glucose [Mass/volume] in Blood [facility] Start: 10-05-2018 Evaluation of arteri al blood gas studies Davidchiqui Wilson Work Phone: Start: 10-05-2018 Standard chest [...] Phone: Start: 10-04-2018 Glucose [Mass/volume] in Blood [facility] Start: 09-13-2018 Glucose blood reagent strip June Andrade [employer] Work Phone: Start: 09-13-2018 CBC, EDIF, PLATELET Clara ne Raymond [employer] Work Phone: Start: 09-13-2018 Choriogonadotropin ( test) [Presence] in Serum or Plasma June Andrade [employer] Work Phone: Start: 09-13-2018 Comprehensive metabolic panel June Andrade [employer] Work Phone: Start: 09-13-2018 Choriogonadotropin ( test) [Presence] in Urine June Andrade [employer] Work Phone: Start: 09-13-2018 Urinalysis microscopic only June A [employer] Work Phone: Start: 09-13-2018 URINALYSIS, MACRO June Raymond Abdirobert Work Phone: Start: 05-06-2016 Microscopic observat ion [Identifier] in Cervix by Cyto stain David Wilson Start: 02-27-2016 Microalbumin [Mass/v olume] in Urine by Test strip David Wilson Cholecystectomy Juno Blackburn Comment on above: 2014; Dilation and curettage Rich Ng Plan of Treatment Date Care Activity Detail Author Start: 2070 RSV High Risk: (Elde rly (60+) or Population) (1 - 1-dose 75+ series) RSV High Risk: (Elderly (60+) or Population) (1 - 1-dose 75+ series) [facility] Start: 2045 Zoster Vaccines (1 o f 2) Zoster Vaccines (1 of 2) [facility] Start: 10-04-2034 DTaP/Tdap/Td Vaccine s (8 - Td or Tdap) DTaP/Tdap/Td Vaccines (8 - Td or Tdap) [facility] Start: 10-04-2034 Tetanus vaccination TETANUS [facility] Start: 10-04-2034 Urine microalbumin profile DTaP,Tdap,Td Vaccine (8 - Td or Tdap) [facility] Start: 01-20-2030 Tetanus vaccination Tetanus: Every 1 0yrs [facility] Start: 05-07-2027 Screening for malign ant neoplasm of cervix [facility] Start: 07-16-2026 Glaucoma screening Diabetes: R etinopathy Screening [facility] Start: 02-22-2026 Glaucoma screening Diabetes: R etinopathy Screening [facility] Start: 01-13-2026 Glaucoma screening Diabetes: R etinopathy Screening [facility] Start: 11-06-2025 Yearly Adult Physical Yearly Adult P hysical [facility] Start: 08-03-2025 End: 08-03-2025 Patient encounter procedure 08/03/2025 10:20 AM EST Office Visit [facility] [address] [facility] [address] [place] [id number] Jamari Byrne MD [address] [facility] [place] [address] [place] [address] [facility] Start: 07-23-2025 Hemoglobin A1c measurement HbA1C [facility] Start: 07-20-2025 End: 07-20-2025 Patient encounter procedure 07/20/2025 11:20 AM EST Office Visit Endocrinology [address] [place] [address] Kelsy Guillermo, DO [address] [place] [address] 6 month follow up Endocrinology Comment on above: 6 month follow up Start: 07-11-2025 End: 07-11-2025 ambulatory 07/11/2025 9:45 AM EST Results Only [facility] [address] [place] [address] [facility] Start: 07-10-2025 End: 10-09-2025 Comprehensive metabolic 2000 panel - Serum or Plasma COMPREHENSIVE METABOLIC PANEL Lab Routine 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, 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, 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 alf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 (HCC) Expected: 07/10/2025 (Approximate), Expires: 10/09/2025 [facility] Comment on above: Expected: 07/10/2025 (Approximate), Expires: 10/09/2025 Start: 07-10-2025 End: 10-09-2025 Hemoglobin A1c in Blood HEMOGLOBIN A1C Lab Routine 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, 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, 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 alf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 (HCC) Expected: 07/10/2025 (Approximate), Expires: 10/09/2025 [facility] Comment on above: Expected: 07/10/2025 (Approximate), Expires: 10/09/2025 Start: 07-10-2025 End: 10-09-2025 Lipid 1996 panel - Serum or Plasma LIPID PANEL, FASTING Lab Routine 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, 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, 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 alf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 (HCC) Expected: 07/10/2025 (Approximate), Expires: 10/09/2025 [facility] Comment on above: Expected: 07/10/2025 (Approximate), Expires: 10/09/2025 Start: 07-10-2025 End: 10-09-2025 Microalbumin/Creatinine [Mass Ratio] in Urine ALBUMIN/CREATININE RATIO, URINE Lab Routine 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, 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, 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 alf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 (HCC) Expected: 07/10/2025 (Approximate), Expires: 10/09/2025 [facility] Comment on above: Expected: 07/10/2025 (Approximate), Expires: 10/09/2025 Start: 07-10-2025 End: 10-09-2025 Thyrotropin [Units/volume] in Serum or Plasma THYROID STIMULATING HORMONE Lab Routine 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, 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, 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 (HCC) Expected: 07/10/2025 (Approximate), Expires: 10/09/2025 [facility] Comment on above: Expected: 07/10/2025 (Approximate), Expires: 10/09/2025 Start: 04-22-2025 Hemoglobin A1c measurement Diabetes: Hemoglobin A1C [facility] Start: 03-22-2025 Hemoglobin A1c measurement HbA1C [facility] Start: 03-09-2025 End: 03-09-2026 NM Stomach Views for gastric emptying solid phase W radionuclide PO NM gastric emptying solid Imaging Routine Diabetic gastroparesis associated with type 2 diabetes mellitus (Multi) Expected: 03/09/2025, Expires: 03/09/2026 [facility] Service Area Work Phone: Comment on above: Expected: 03/09/2025 , Expires: 03/09/2026 Start: 03-09-2025 End: 03-09-2025 Patient encounter procedure 03/09/2025 9:20 AM EDT Office Visit [facility] [address] [place] [address] [place] [id number] Jamari Byrne MD [address] [facility] [place] [address] [place] [address] [facility] Start: 02-13-2025 Glaucoma screening Diabetes: R etinopathy Screening [facility] Start: 02-07-2025 COVID-19 VACCINE ( season) COVID-19 VACCINE ( season) [facility] Start: 02-07-2025 Influenza vaccination [facility] Start: 02-04-2025 End: 02-04-2025 Patient encounter procedure 02/04/2025 10:20 AM EDT Office Visit [facility] [address] [place] [address] [place] [address] Jamari Byrne MD [address] [facility] [place] [address] [place] [address] [facility] Start: 01-26-2025 [facility] Start: 01-23-2025 [facility] Start: 01-21-2025 [facility] Start: 01-20-2025 End: 01-20-2025 Follow-up encounter 01/20/2025 2:00 PM EDT Education Endocrinology [address] [place] [address] [place] [address] [place] [address] follow up Endocrinology Comment on above: follow up Start: 01-20-2025 End: 01-20-2025 Patient encounter procedure Endocrinology Comment on above: see me for post part um f/u Jan 20 (virtual or in person) 6 week post Start: 01-19-2025 End: 01-19-2025 Patient encounter procedure 01/19/2025 1:20 PM EDT Office Visit OB/Gynecology [address] [place] [id number] Whit Morton MD [address] [place] [address] 6 week post & pre-op surgery 01/28 OB/Gynecology Comment on above: 6 week post & pre-op surgery 01/28 Start: 12-21-2024 End: 12-21-2024 Patient encounter procedure 12/21/2024 1:40 PM EDT Office Visit OB/Gynecology [address] [place] [address] William Gramajo MD [address] [place] [address] 2 week post OB/Gynecology Comment on above: 2 week post Start: 12-16-2024 Vital signs measurements [facility] Start: 12-16-2024 End: 12-16-2024 Patient encounter procedure OB/Gynecology Comment on above: NST OB/NST Start: 12-16-2024 Patient discharge [facility] Start: 12-13-2024 End: 12-13-2024 Patient encounter procedure [facility] Comment on above: BPP OB/BPP Start: 12-09-2024 End: 12-09-2024 Patient encounter procedure OB/Gynecology Comment on above: NST OB/NST Start: 12-09-2024 Patient discharge [facility] Start: 12-08-2024 [facility] Start: 12-07-2024 Documentation procedure [facility] Start: 12-07-2024 Administration of medication [facility] Start: 12-07-2024 Application of ice collar, cap or bag [facility] Start: 12-07-2024 Catheterization of vein [facility] Start: 12-07-2024 Introduction of urin stephen catheter [facility] Start: 12-07-2024 Measuring intake and output [facility] Start: 12-07-2024 Notification of physician [facility] Start: 12-07-2024 Procedure discontinued [facility] Start: 12-07-2024 Provision of activit y privileges [facility] Start: 12-07-2024 Vital signs measurements [facility] Start: 12-07-2024 End: 12-07-2024 [facility] Start: 12-07-2024 Admission procedure [facility] Start: 12-07-2024 Consultation [facility] Start: 12-06-2024 End: 12-06-2024 Patient encounter procedure [facility] Comment on above: BPP OB/BPP Start: 12-02-2024 End: 12-02-2024 Patient encounter procedure OB/Gynecology Comment on above: NST OB/NST Start: 11-30-2024 End: 11-30-2024 Patient encounter procedure 11/30/2024 3:30 PM EDT Routine Office Visit [facility] [address] [place] [address] GROWTH/BPP/MFM [facility] Comment on above: GROWTH/BPP/MFM Start: 11-26-2024 Screening for malign ant neoplasm of [facility] Start: 11-25-2024 End: 11-25-2024 Patient encounter procedure OB/Gynecology Comment on above: NST OB/NST Start: 11-22-2024 End: 11-22-2024 Patient encounter procedure 11/22/2024 9:00 AM EDT Routine Office Visit [facility] [address] [place] [address] BPP [facility] Comment on above: BPP Start: 11-18-2024 End: 11-18-2024 Patient encounter procedure OB/Gynecology Comment on above: NST OB/NST Start: 11-15-2024 Nonstress test [facility] Start: 11-15-2024 Obstetric monitoring [facility] Start: 11-15-2024 Vital signs measurements [facility] Start: 11-15-2024 End: 11-15-2024 [facility] Start: 11-15-2024 Bacteria identified in Urine by Culture Urine Culture [facility] Start: 11-15-2024 End: 11-15-2024 Patient encounter procedure [facility] Comment on above: BPP OB/BPP Start: 11-15-2024 Patient discharge [facility] Start: 11-11-2024 End: 11-11-2024 Patient encounter procedure OB/Gynecology Comment on above: NST NST/OB Start: 11-08-2024 End: 11-08-2024 Patient encounter procedure 11/08/2024 9:00 AM EDT Routine Office Visit [facility] [address] [place] [address] BPP [facility] Comment on above: BPP Start: 11-05-2024 End: 02-04-2025 BILE ACIDS FRACT BLD [facility] Comment on above: Expected: 11/05/2024 , Expires: 02/04/2025 Start: 11-05-2024 End: 02-04-2025 BILE ACIDS, TOTAL [facility] Work Phone: Comment on above: Expected: 11/05/2024 , Expires: 02/04/2025 Start: 11-05-2024 End: 11-05-2024 Patient encounter procedure OB/Gynecology Comment on above: NST/OB NST/OB - encourage o ptho f/u JG-NST/OB Start: 11-04-2024 End: 11-04-2024 Patient encounter procedure 11/04/2024 2:20 PM EDT Office Visit [facility] [address] [place] [address] [place] [phone] Jamari Byrne MD [address] [facility] [place] [address] [place] [address] [facility] Start: 11-04-2024 End: 11-04-2024 Follow-up encounter 11/04/2024 11:00 AM EDT Education Endocrinology [address] [place], [place] [id number] [place] [address] [place] [address] follow up on 11/04/24 at 11 am. [...] Office Visit [facility]aternal Medicine [address] [place] [address] BPP [facility] Comment on above: BPP Start: 10-25-2024 End: 01-24-2025 PARVOVIRUS B19 IGG+M [facility] Work Phone: Comment on above: Expected: 10/25/2024 , Expires: 01/24/2025 Start: 10-25-2024 End: 10-25-2024 Patient encounter procedure OB/Gynecology Comment on above: NST OB Routine with EKG Start: 10-18-2024 End: 10-18-2024 Patient encounter procedure 10/18/2024 1:50 PM EDT Routine Office Visit OB/Gynecology [address] [place] [address] Keshav Loving MD [address] [place] [address] OB Routine OB/Gynecology Comment on above: OB Routine Start: 10-16-2024 [facility] Start: 10-16-2024 Bacteria identified in Urine by Culture Urine Culture [facility] Start: 10-16-2024 Iv infusion therapy prophylaxis/dx ea hour THER/PROPH/DIAG IV INF ADDON [facility] Start: 10-16-2024 Iv infusion therapy/prophylaxis /dx 1st to 1 hr THER/PROPH/DIAG IV INF INIT [facility] Start: 10-16-2024 Patient discharge [facility] Start: 10-12-2024 End: 10-12-2024 ambulatory 10/12/2024 10:00 AM EDT Procedure Pediatric Cardiology [address] [place] [address] Pamela Haskins MD [address] [place], [place] [id number] FU echo Pediatric Cardiology Comment on above: FU echo Start: 10-12-2024 End: 10-12-2024 Patient encounter procedure 10/12/2024 10:00 AM EDT Office Visit Pediatric Cardiology 1 [facility] [address] FU echo Pediatric Cardiology Comment on above: FU echo Start: 10-04-2024 End: 01-03-2025 Bacteria identified in Urine by Culture [facility] Comment on above: Expected: 10/04/2024 , Expires: 01/03/2025 Start: 10-04-2024 End: 01-03-2025 Protein/Creatinine [Mass Ratio] in Urine [facility] Comment on above: Expected: 10/04/2024 , Expires: 01/03/2025 Start: 10-04-2024 End: 10-04-2024 Patient encounter procedure Maternal Medicine Comment on above: Gr=owth OB Start: 09-24-2024 End: 09-24-2024 Patient encounter procedure 09/24/2024 3:15 PM EDT Routine Office Visit OB/Gynecology [address] [place] [address] Leonie Waldron APRN.CN [address] [place] [address] Supervision of high risk in second trimester (HCC) (Primary Dx); 27 weeks gestation of (HCC); Burning with urination; Vaginal discharge OB/Gynecology Comment on above: Supervision of high risk in second trimester (HCC) (Primary Dx); 27 weeks gestation of (HCC); Burning with urination; Vaginal discharge Start: 09-24-2024 Obstetric monitoring [facility] Start: 09-24-2024 [facility] Start: 09-24-2024 Vital signs measurements [facility] Start: 09-24-2024 [facility] Start: 09-20-2024 End: 09-20-2024 Patient encounter procedure 09/20/2024 1:40 PM EDT Office Visit Endocrinology [address] [place] [address] Kelsy Guillermo, DO [address] [place], [place] [phone] see me in 7 weeks for f/u. Endocrinology Comment on above: see me in 7 weeks fo r f/u. Start: 09-07-2024 End: 09-07-2024 Patient encounter procedure Maternal Medicine Comment on above: Growth OB Routine Start: 09-05-2024 Hemoglobin A1c measurement Diabetes: Hemoglobin A1C [facility] Start: 09-02-2024 End: 09-02-2024 Patient encounter procedure 09/02/2024 11:00 AM EDT Routine Office Visit Maternal Medicine [address] [place] [address] Growth Maternal Medicine Comment on above: Growth Start: 08-24-2024 End: 08-24-2024 ambulatory 08/24/2024 1:00 PM EDT Procedure Pediatric Cardiology 1 [place] [address] Pamela Haskins MD [address] [place], [place] [id number] Pre-existing type 2 diabetes mellitus in in first trimester [O24.111] Pediatric Cardiology Comment on above: Pre-existing type 2 diabetes mellitus in in first trimester [O24.111] Start: 08-24-2024 End: 08-24-2024 Patient encounter procedure 08/24/2024 1:00 PM EDT Office Visit Pediatric Cardiology 1 [place], [place] [id number] Pre-existing type 2 diabetes mellitus in in first trimester [O24.111] Pediatric Cardiology Comment on above: Pre-existing type 2 diabetes mellitus in in first trimester [O24.111] Start: 08-10-2024 End: 08-10-2024 Patient encounter procedure Maternal Medicine Comment on above: Anatomy Scan anatomy / mfm OB Routine Start: 08-03-2024 Hemoglobin A1c measurement Diabetes: Hemoglobin A1C [facility] Start: 07-26-2024 End: 07-26-2024 Patient encounter procedure 07/26/2024 2:00 PM EST Office Visit Endocrinology [address] [place], [place] [id number] Kelsy Guillermo, DO [address] [place] [address] 8 weeks v/u Endocrinology Comment on above: 8 weeks v/u Start: 07-13-2024 End: 07-13-2025 OBSTETRIC ULTRASOUND WHI OBSTETRIC ULTRASOUND WHI Anc Imaging Routine Encounter for anatomic survey Expected: 07/13/2024, Expires: 07/13/2025 [facility] Work Phone: Comment on above: Expected: 07/13/2024 , Expires: 07/13/2025 Start: 07-13-2024 End: 07-13-2024 Patient encounter procedure Maternal Medicine Comment on above: Early Anatomy Scan OB Routine Start: 07-12-2024 End: 07-12-2024 Patient encounter procedure 07/12/2024 10:00 AM EST Office Visit OB/Gynecology [address] [address] Lucy Mariscal APRN.[employer] [address] [place] [address] ANNUAL OB/Gynecology Comment on above: ANNUAL Start: 06-16-2024 End: 06-16-2024 ambulatory 06/16/2024 10:00 AM EST [facility] Endocrinology [address] [place] [address] [place] [address] [place], [place] [phone] see political science research assistant (Carrie Larsen) virtual visit Endocrinology Comment on above: see political science research assistant (Hiral Larsen) virtual visit Start: 06-15-2024 End: 09-14-2024 Chromosome 21 trisomy [Presence] in Blood or Tissue by Cytogenetics [facility] Work Phone: Comment on above: Expected: 06/15/2024 , Expires: 09/14/2024 Start: 06-15-2024 End: 06-15-2024 Patient encounter procedure Maternal Medicine Comment on above: Nuchal/ Consult to M FM Start: 01-01-2025 Medicare Advantage Annual Wellness Visit Medicare Advantage Annual Wellness Visit [facility] Start: 06-08-2024 End: 06-08-2024 Patient encounter procedure 06/08/2024 1:10 PM EST Routine Office Visit OB/Gynecology [address] [place] [address] Piper Julian MD [address] [place] [address] New Ob LMP 03/13/2024 OB/Gynecology Comment on above: New Ob LMP 03/13/2024 Start: 06-07-2024 End: 06-07-2024 Patient encounter procedure 06/07/2024 2:20 PM EST Office Visit Endocrinology [address] [place] [address] Kelsy Guillermo, DO [address] [place], [place] [phone] see me in 4 weeks (virtual visit) Endocrinology Comment on above: see me in 4 weeks (v irtual visit) Start: 05-26-2024 End: 05-26-2024 Patient encounter procedure 05/26/2024 10:10 AM EST Routine Office Visit OB/Gynecology [address] [place], [place] [phone] Krys Kulkarni MD [address] [place] [address] Previous MFM records in JG chart prep folder OB/Gynecology Comment on above: Previous MFM records in JG chart prep folder Start: 05-07-2024 End: 08-06-2024 ANEMIA REFLEX PANEL [facility] Work Phone: Comment on above: Expected: 05/07/2024 , Expires: 08/06/2024 Start: 05-07-2024 End: 08-06-2024 CARRIER SCREEN, STANDARD [facility] Comment on above: Expected: 05/07/2024 , Expires: 08/06/2024 Start: 05-07-2024 End: 08-06-2024 Hepatitis B virus surface Ag [Presence] in Serum [facility] Comment on above: Expected: 05/07/2024 , Expires: 08/06/2024 Start: 05-07-2024 End: 08-06-2024 Hepatitis C virus Ab [Presence] in Serum [facility] Comment on above: Expected: 05/07/2024 , Expires: 08/06/2024 Start: 05-07-2024 End: 08-06-2024 HIV 1+2 Ab [Presence] in Serum or Plasma by Immunoassay [facility] Comment on above: Expected: 05/07/2024 , Expires: 08/06/2024 Start: 05-07-2024 End: 05-07-2025 NUCHAL TRANSLUCENCY WHI NUCHAL TRANSLUCENCY WHI Anc Imaging Routine with uncertain dates in first trimester Expected: 05/07/2024, Expires: 05/07/2025 [facility] Comment on above: Expected: 05/07/2024 , Expires: 05/07/2025 Start: 05-07-2024 End: 05-07-2025 OBSTETRIC ULTRASOUND WHI OBSTETRIC ULTRASOUND WHI Anc Imaging Routine with uncertain dates in first trimester Expected: 05/07/2024, Expires: 05/07/2025 [facility] Comment on above: Expected: 05/07/2024 , Expires: 05/07/2025 Start: 05-07-2024 End: 08-06-2024 Protein/Creatinine [Mass Ratio] in Urine [facility] Comment on above: Expected: 05/07/2024 , Expires: 08/06/2024 Start: 05-07-2024 End: 08-06-2024 RUBELLA IGG ANTIBODY [facility] Comment on above: Expected: 05/07/2024 , Expires: 08/06/2024 Start: 05-07-2024 End: 08-06-2024 SYPHILIS TREPONEMAL W/REFLEX [facility] Comment on above: Expected: 05/07/2024 , Expires: 08/06/2024 Start: 05-07-2024 End: 08-06-2024 Thyrotropin [Units/volume] in Serum or Plasma [facility] Comment on above: Expected: 05/07/2024 , Expires: 08/06/2024 Start: 05-07-2024 End: 08-06-2024 TYPE + SCREEN [facility] Comment on above: Expected: 05/07/2024 , Expires: 08/06/2024 Start: 05-07-2024 End: 05-07-2024 Patient encounter procedure OB/Gynecology Comment on above: New Ob LMP 03/13/2024 Start: 05-04-2024 End: 05-04-2024 Patient encounter procedure 05/04/2024 2:20 PM EST Office Visit [facility] [address] [place] [address] Jamari Byrne MD [address] [facility] [address] [place] [address] [facility] Start: 05-03-2024 End: 05-03-2024 Patient encounter procedure 05/03/2024 2:40 PM EST Office Visit Endocrinology [address] [place] [address] Kelsy Guillermo, DO [address] [place] [address] Insulin controlled gestational diabetes mellitus (GDM) in first trimester [O24.414] Endocrinology Comment on above: Insulin controlled g estational diabetes mellitus (GDM) in first trimester [O24.414] Start: 03-17-2024 Hemoglobin A1c measurement Diabetes: Hemoglobin A1C [facility] Start: 02-14-2024 Glaucoma screening Diabetes: R etinopathy Screening [facility] Start: 02-08-2024 Covid-19 Vaccine ( season) Covid-19 Vaccine ( season) [facility] Start: 02-08-2024 Influenza vaccination [facility] Start: 01-23-2024 End: 04-24-2024 Hemoglobin A1c/Hemoglobin.total in Blood Hemoglobin A1C Lab Routine Hyperglycemia due to diabetes mellitus (Multi) Expected: 01/23/2024 (Approximate), Expires: 04/24/2024 [facility] Service Area Work Phone: Comment on above: Expected: 01/23/2024 (Approximate), Expires: 04/24/2024 Start: 12-24-2023 End: 12-24-2023 Patient encounter procedure 12/24/2023 11:20 AM EDT Office Visit [facility] [address] [place] [phone] Jamari Byrne MD [address] [facility] [address] [place] [address] [facility] Start: 09-15-2023 End: 09-15-2023 Patient encounter procedure 09/15/2023 10:20 AM EDT Office Visit [facility] [address] [place] [phone] Jamari Byrne MD [address] [facility] [address] [place] [address] [facility] Start: 09-08-2023 End: 07-10-2024 Basic metabolic 2000 panel - Serum or Plasma Basic Metabolic Panel Lab Routine Hyperglycemia due to diabetes mellitus (CMS/HCC) Expected: 09/08/2023 (Approximate), Expires: 07/10/2024 [facility] Service Area Work Phone: Comment on above: Expected: 09/08/2023 (Approximate), Expires: 07/10/2024 Start: 09-08-2023 End: 07-10-2024 Hemoglobin A1c/Hemoglobin.total in Blood Hemoglobin A1C Lab Routine Hyperglycemia due to diabetes mellitus (CMS/HCC) Expected: 09/08/2023 (Approximate), Expires: 07/10/2024 [facility] Work Phone: Comment on above: Expected: 09/08/2023 (Approximate), Expires: 07/10/2024 Start: 07-10-2023 End: 05-09-2024 Basic metabolic 2000 panel - Serum or Plasma Basic Metabolic Panel Lab Routine Hyperglycemia due to diabetes mellitus (CMS/HCC) Expected: 07/10/2023, Expires: 05/09/2024 [facility] Work Phone: Comment on above: Expected: 07/10/2023 , Expires: 05/09/2024 Start: 07-10-2023 End: 05-09-2024 Hemoglobin A1c/Hemoglobin.total in Blood Hemoglobin A1C Lab Routine Hyperglycemia due to diabetes mellitus (CMS/HCC) Expected: 07/10/2023 (Approximate), Expires: 05/09/2024 [facility] Service Area Work Phone: Comment on above: Expected: 07/10/2023 (Approximate), Expires: 05/09/2024 Start: 07-10-2023 End: 07-10-2023 Patient encounter procedure 07/10/2023 10:20 AM EST Office Visit [place] [address] [facility] [address] [place] [phone] Jamari Byrne MD [address] [facility] [address] [place] [address] [facility] Start: 06-11-2023 Hemoglobin A1c measurement Diabetes: Hemoglobin A1C [facility] Start: 06-09-2023 Depression Assessment Depression Ass [facility] Start: 04-23-2023 End: 04-23-2023 Patient encounter procedure 04/23/2023 10:20 AM EST Office Visit [place] [address] [facility] [address] [place] [phone] Jamari Byrne MD [address] [facility] [place] [address] [place] [phone] [facility] Start: 03-15-2023 End: 12-14-2023 Hemoglobin A1c/Hemoglobin.total in Blood Hemoglobin A1C Lab Routine Hyperglycemia due to diabetes mellitus (CMS/HCC) Expected: 03/15/2023 (Approximate), Expires: 12/14/2023 [facility] Service Area Work Phone: Comment on above: Expected: 03/15/2023 (Approximate), Expires: 12/14/2023 Start: 03-05-2023 Hemoglobin A1c measurement Diabetes: Hemoglobin A1C [facility] Start: 02-08-2023 Ophthalmic examinati on and evaluation Diabetes: Retinopathy Screening [facility] Start: 02-07-2023 Covid-19 Vaccine ( season) Covid-19 Vaccine ( season) [facility] Start: 02-07-2023 Influenza vaccination Influenz a Vaccine (#1) [facility] Start: 11-27-2022 Patient encounter procedure ANNUAL, Provider: Genoveva Sutton, Status: Pen, Time: 8:30 AM [facility] Work Phone: Start: 11-26-2022 History and physical examination, annual for health maintenance Wellness Visit [facility] Start: 08-22-2022 FUV, Provider: Jamari Byrne, Status: Pen, Time: 11:20 AM FUV, Provider: Jamari Byrne, Status: Pen, Time: 11:20 AM [facility] Work Phone: Start: 08-03-2022 Hepatitis B surface antibody level LDL Cholesterol [facility] Start: 08-03-2022 Urine screening for protein [facility] Start: 02-22-2022 FUV, Provider: Jamari Byrne, Status: Pen, Time: 8:40 AM FUV, Provider: Jamari Byrne, Status: Pen, Time: 8:40 AM [facility] Work Phone: Start: 02-07-2022 Influenza vaccination Sequenti al Influenza Vaccine (#1) [facility] Start: 12-25-2021 FUV, Provider: Genoveva Sutton, Status: Pen, Time: 8:45 AM FUV, Provider: Genoveva Sutton, Status: Pen, Time: 8:45 AM [employer] [facility] Work Phone: Start: 12-17-2021 FUV, Provider: Genoveva Sutton, Status: Pen, Time: 9:15 AM FUV, Provider: Genoveva Sutton, Status: Pen, Time: 9:15 AM [facility] Work Phone: Start: 10-31-2021 Hemoglobin A1c measurement A1C [facility] Start: 04-05-2021 FUV, Provider: Rich Ng, Status: Pen, Time: 10:20 AM FUV, Provider: Rich Ng, Status: Pen, Time: 10:20 AM [facility] Work Phone: Start: 03-09-2021 Medicare Annual Wellness Visit Medicare Annual Wellness Visit [facility] Start: 01-04-2021 FUV, Provider: Rich Ng, Status: Pen, Time: 10:20 AM FUV, Provider: Rich Ng, Status: Pen, Time: 10:20 AM [facility] Work Phone: Start: 12-13-2020 Patient encounter procedure [facility] [place] Start: 11-08-2020 End: 11-08-2020 Office Visit 11/08/2020 Office Visit Neurology Srini Medina MD [address] [place] [phone] [facility] Start: 10-11-2020 Urine microalbumin profile DTaP,Tdap,Td Vaccine (7 - Td or Tdap) [facility] Start: 10-07-2020 Depression Remission Assessment (PHQ9) Depression Remission Assessment (PHQ9) [facility] Start: 02-23-2020 Albumin DL <= 20 mg/ L (U) [Mass/Vol] URINE MICROALBUMIN [facility] Start: 02-23-2020 Hepatitis B screening Urine Albumin:Creatinine Ratio [facility] Start: 02-17-2020 End: 02-17-2020 Office Visit 02/17/2020 Office Visit Neurology Srini Medina MD [address] [place] [phone] [facility] Start: 02-08-2020 Influenza vaccinatio n given Sequential Influenza Vaccine (#1) [facility] Start: 12-23-2019 Depression Remission Assessment (PHQ9) Depression Remission Assessment (PHQ9) [facility] Start: 10-21-2019 Localize cerebral seizure cptr portable eeg EEG: Ambulatory outpatient [facility] Work Phone: Start: 10-21-2019 CT Head withou t Contrast [facility] Work Phone: Start: 08-23-2019 HbA1c (Bld) [Mass fraction] A1C [facility] Start: 07-09-2019 Screening for malign ant neoplasm of cervix [facility] Start: 05-24-2019 End: 05-24-2019 Office Visit 05/24/2019 Office Visit Primary Care Verona Hilliard MD [address] [place] [address] [facility] Start: 05-06-2019 Screening for malign ant neoplasm of cervix PAP SMEAR [facility] Start: 02-07-2019 Influenza vaccination INFLUENZ A VACCINE (Season Ended) [facility] Start: 02-07-2019 Influenza vaccinatio n given SEQUENTIAL INFLUENZA VACCINE (#1) [facility] Start: 11-02-2018 HbA1c (Bld) [Mass fraction] A1C [facility] Start: 02-07-2018 Influenza vaccinatio n given SEQUENTIAL INFLUENZA VACCINE (#1) [facility] Start: 02-26-2017 Albumin DL <= 20 mg/ L (U) [Mass/Vol] URINE MICROALBUMIN [facility] Start: 2017 DTaP/Tdap/Td Vaccine s (1 - Tdap) DTaP/Tdap/Td Vaccines (1 - Tdap) [facility] Start: 01-28-2016 Screening for malign ant neoplasm of cervix [facility] Start: 11-22-2014 Pneumococcal vaccination Pneumococcal Vaccine (2 of 2 - PCV) [facility] Start: 11-22-2014 PNEUMOCOCCAL VACCINE SERIES (2 of 2 - PCV) PNEUMOCOCCAL VACCINE SERIES (2 of 2 - PCV) [facility] Start: 11-22-2014 Pneumococcal Vaccine : Pediatrics and At-Risk Adult Patients (2 of 2 - PCV) Pneumococcal Vaccine: Pediatrics and At-Risk Adult Patients (2 of 2 - PCV) [facility] Start: 2014 Hepatitis A Vaccines (1 of 2 - Risk 2-dose series) Hepatitis A Vaccines (1 of 2 - Risk 2-dose series) [facility] Start: 2014 Hepatitis B Vaccines (1 of 3 - 19+ 3-dose series) Hepatitis B Vaccines (1 of 3 - 19+ 3-dose series) [facility] Start: 2014 Pneumococcal Vaccine : Pediatrics and At-Risk Adult Patients (1 of 2 - PCV) Pneumococcal Vaccine: Pediatrics and At-Risk Adult Patients (1 of 2 - PCV) [facility] Start: 2014 Third diphtheria, tetanus and acellular pertussis (DTaP) vaccination TDAP (ADULT) [facility] Start: 2014 Zoster Vaccines (1 o f 2) Zoster Vaccines (1 of 2) [facility] Start: 2013 Annual PCP Team Tim[employer] Poisoner andres Disease Visit Annual PCP Team Chronic Disease Visit [facility] Start: 2013 Anxiety Screening Anxiety Screening [facility] Start: 2013 Depression Screening Depression Scre [facility] Start: 2013 Hepatitis C antibody , confirmatory test Hepatitis C Screening [facility] Start: 2013 Hepatitis C screening Hepatitis C Sc reening [facility] Start: 2013 HIV screening HIV Screening [facility] Start: 2013 Tetanus vaccination [facility] Start: 2011 COVID-19 Vaccine (1 of 2) COVID-19 Vaccine (1 of 2) [facility] Start: 2011 Screening for Chlamy clara trachomatis CHLAMYDIA SCREEN [facility] Start: 2010 HIV screening [facility] Start: 2010 Vaccination for agusto n papillomavirus [facility] Start: 06-09-2009 [facility]anus [facility] Start: 01-28-2008 HIV screening HIV SCREENING DISCUSSION [facility] Start: 01-28-2008 Varicella vaccination Varicell a Vaccines (1 of 2 - 13+ 2-dose series) [facility] Start: 2006 Vaccination for agusto n papillomavirus HPV Vaccines (1 - 2-dose series) [facility] Start: 2005 Diabetic foot examination [facility] Start: 2005 Glaucoma screening [facility] Start: 2005 Ophthalmic examinati on and evaluation Ophthalmology Exam [facility] Start: 2001 Pneumococcal Vaccine : Ped or At-Risk (1 - PCV) Pneumococcal Vaccine: Ped or At-Risk (1 - PCV) [facility] Start: 2001 Pneumococcal Vaccine : Pediatrics (0 to 5 Years) and At-Risk Patients (6 to 64 Years) (1 - PCV) Pneumococcal Vaccine: Pediatrics (0 to 5 Years) and At-Risk Patients (6 to 64 Years) (1 - PCV) [facility] Start: 2001 Pneumococcal Vaccine : Pediatrics (0 to 5 Years) and At-Risk Patients (6 to 64 Years) (1 of 2 - PCV) Pneumococcal Vaccine: Pediatrics (0 to 5 Years) and At-Risk Patients (6 to 64 Years) (1 of 2 - PCV) [facility] Start: 01-28-2000 COVID-19 Vaccine (#1) COVID-19 Vacci ne (#1) [facility] Start: 1998 History and physical examination, annual for health maintenance Wellness Visit [facility] Start: 01-28-1996 MMR Vaccines (1 of 1 - Standard series) MMR Vaccines (1 of 1 - Standard series) [facility] Start: 01-28-1996 Varicella vaccination Varicell a Vaccines (1 of 2 - 2-dose childhood series) [facility] Start: 1995 COVID-19 Vaccine (#1) COVID-19 Vacci ne (#1) [facility] Start: 1995 Depression screening using PHQ-9 (Patient Health Questionnaire 9) score DEPRESSION SCREENING (PHQ9) [facility] Start: 1995 GONORRHEA SCREEN [facility] Start: 1995 Hepatitis B Vaccines (1 of 3 - 3-dose series) Hepatitis B Vaccines (1 of 3 - 3-dose series) [facility] Start: 1995 Hepatitis C screening HEPATITI S C VIRUS SCREENING [facility] Start: 1995 Lipid panel Lipid Panel [facility] Start: 1995 Medicare Annual Wellness Visit Medicare Annual Wellness Visit (AWV) [facility] Start: 1995 Screening for Chlamy clara trachomatis Chlamydia Screening [facility] End: 04-18-2024 Bacteria identified in Urine by Culture [facility] Work Phone: Comment on above: Once (Lab) for 1 Occ urrences starting 04/18/2024 until 04/18/2024 Bacteria identified in Urine by Culture URINE CULTURE Microbiology Routine with uncertain dates in first trimester 05/07/2024 10:24 AM [facility] Bacteria identified in Urine by Culture BACTERIAL CULTURE, URINE Microbiology Routine Burning with urination 09/24/2024 9:17 AM [facility] Work Phone: BACTERIAL VAGINOSIS NAAT BACTERIAL VAGINOSIS NAAT Lab Routine Vaginal discharge during in first trimester 05/07/2024 10:24 AM [facility] BACTERIAL VAGINOSIS NAAT BACTERIAL VAGINOSIS NAAT Lab Routine Vaginal discharge 09/24/2024 9:17 AM [facility] BACTERIAL VAGINOSIS NAAT BACTERIAL VAGINOSIS NAAT Lab Routine Vaginal itching Ordered: 11/18/2024 [facility] Work Phone: Comment on above: Ordered: 11/18/2024 End: 01-03-2025 BIOPHYSICAL PROFILE US [facility] BIOPHYSICAL PROFILE US [facility] Anc Imaging Routine Supervision of high risk in third trimester ([facility]) Pre-existing type 2 diabetes mellitus in in first trimester ([facility]) Once per week for 10 Occurrences starting 10/05/2024 until 01/03/2025 [facility] Comment on above: Once per week for 10 Occurrences starting 10/05/2024 until 01/03/2025 JOSUÉ/TRICHOMONAS NAAT JOSUÉ/TRICHOMONAS NAAT Lab Routine Vaginal discharge during in first trimester 05/07/2024 10:24 AM [facility] JOSUÉ/TRICHOMONAS NAAT JOSUÉ/TRICHOMONAS NAAT Lab Routine Vaginal discharge 09/24/2024 9:17 AM [facility] JOSUÉ/TRICHOMONAS NAAT JOSUÉ/TRICHOMONAS NAAT Lab Routine Vaginal itching Ordered: 11/18/2024 [facility] Comment on above: Ordered: 11/18/2024 Cast care: wet Wet prep, genita l Microbiology Routine Vaginal discharge Ordered: 08/17/2022 [facility] Work Phone: Comment on above: Ordered: 08/17/2022 End: 12-08-2020 Ceruloplasmin measurement Ceruloplasmin Lab Routine Seizure (FORMERLY [facility]) 1 Occurrences starting 12/08/2019 until 12/08/2020 [facility] Comment on above: 1 Occurrences starti ng 12/08/2019 until 12/08/2020 Ceruloplasmin measurement Ceruloplasmin Lab Routine Seizure (FORMERLY [facility]) 12/08/2019 8:42 AM EDT [facility] Chlamydia trachomati s rRNA assay Chlamydia/GC/Trichomo savannah Amplified RNA Microbiology Routine Vaginal discharge Ordered: 08/17/2022 [facility] Comment on above: Ordered: 08/17/2022 Chlamydia trachomatis+Neisseria gonorrhoeae DNA [Presence] in Unspecified specimen by SUMIT with probe detection GONORRHEA/CHLAMYDIA NAAT Lab Routine with uncertain dates in first trimester 05/07/2024 10:24 AM EST [facility] End: 01-24-2025 ECG 12 Lead [facility] Work Phone: Comment on above: Once for 1 Occurrenc es starting 01/24/2025 until 01/24/2025 End: 10-04-2025 ECG COMPLETE ECG COMPLETE ECG Routine History of pre-eclampsia 29 weeks gestation of (FORMERLY [facility]) Pre-existing type 2 diabetes mellitus in in third trimester ([facility]) Supervision of high risk in third trimester ([facility]) 1 Occurrences starting 10/04/2024 until 10/04/2025 [facility] Work Phone: Comment on above: 1 Occurrences starti ng 10/04/2024 until 10/04/2025 End: 06-15-2025 ECHO ECHO Cardiology Routine Pre-existing type 2 diabetes mellitus in in first trimester 1 Occurrences starting 06/15/2024 until 06/15/2025 [facility] Comment on above: 1 Occurrences starti ng 06/15/2024 until 06/15/2025 End: 04-18-2024 Extra Urine [place] [facility] Extra Urine [facility] Lab Timed Once for 1 Occurrences starting 04/18/2024 until 04/18/2024 [facility] Work Phone: Comment on above: [...] 29 weeks gestation of (FORMERLY [facility]) Pre-existing type 2 diabetes mellitus in in third trimester ([facility]) Supervision of high risk in third trimester ([facility]) 2x per week for 16 Occurrences starting 10/04/2024 until 01/02/2025 [facility] Comment on above: 2x per week for 16 O ccurrences starting 10/04/2024 until 01/02/2025 Hemoglobin A1c/Hemoglobin.total in Blood HEMOGLOBIN A1C (POC) Lab Routine 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, 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, 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 alf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 ([facility]LY [facility]) Ordered: 01/20/2025 [facility] Work Phone: Comment on above: Ordered: 01/20/2025 Lactate dehydrogenas e measurement [facility] Magnesium measurement [facility] Neisseria gonorrhoea e nucleic acid detection Chlamydia/Gonorrhoeae Amplified RNA Microbiology Routine Vaginal discharge Ordered: 08/17/2022 [facility] Comment on above: Ordered: 08/17/2022 End: 12-08-2020 Nuclear Ab IF (S) [Titer] NICOLE Lab Routine Seizure (FORMERLY [facility]) 1 Occurrences starting 12/08/2019 until 12/08/2020 [facility] Comment on above: 1 Occurrences starti ng 12/08/2019 until 12/08/2020 Nuclear Ab IF (S) [Titer] NICOLE Lab Routine Seizure (FORMERLY [facility]) 12/08/2019 8:42 AM EDT [facility] End: 11-26-2024 OBSTETRIC ULTRASOUND WHI OBSTETRIC ULTRASOUND I Anc Imaging Routine Obesity affecting in first trimester, unspecified obesity type Pre-existing type 2 diabetes mellitus in in first trimester Once per month for 4 Occurrences starting 08/10/2024 until 11/26/2024 [facility] Work Phone: Comment on above: Once per month for 4 Occurrences starting 08/10/2024 until 11/26/2024 PAP TEST PAP TEST Lab Minerva arellano Encounter for supervision of high risk in first trimester, antepartum Screening for cervical cancer 05/07/2024 10:48 AM EST [facility] Patient Education [facility] Work Phone: Patient referral [facility] Work Phone: End: 01-24-2025 Pulse oximetry, continuous Pulse oximetry, continuous Respiratory Care STAT Continuous until discontinued starting 01/24/2025 [facility] Service Area Work Phone: Comment on above: Continuous until dis continued starting 01/24/2025 End: 12-08-2020 Reagin Ab RPR Ql (S) RPR Lab Routine Seizure (FORM[facility]LY [facility]) 1 Occurrences starting 12/08/2019 until 12/08/2020 [facility] Comment on above: 1 Occurrences starti ng 12/08/2019 until 12/08/2020 Reagin Ab RPR Ql (S) RPR Lab Rou eileen Seizure (FORMERLY [facility]) 12/08/2019 8:42 AM EDT [facility] Trichomonas vaginali s Amplified RNA Trichomonas vaginalis Amplified RNA Microbiology Routine Vaginal discharge Ordered: 08/17/2022 [facility] Comment on above: Ordered: 08/17/2022 Urate [Mass/volume] in Serum or Plasma [facility] End: 04-18-2024 Urinalysis complete W Reflex Culture panel - Urine [facility] Area Work Phone: Comment on above: Once (Lab) for 1 Occ urrences starting 04/18/2024 until 04/18/2024 End: 05-21-2024 Urinalysis complete W Reflex Culture panel - Urine [facility] Area Work Phone: Comment on above: Once (Lab) for 1 Occ urrences starting 05/21/2024 until 05/21/2024 End: 01-24-2025 Urinalysis complete W Reflex Culture panel - Urine [facility] Work Phone: Comment on above: STAT (Lab) for 1 Occ urrences starting 01/24/2025 until 01/24/2025 Urine culture [facility] Urine culture [facility] URINE OB DIP B/O URINE OB DIP B/ O Lab Routine Pre-existing type 2 diabetes mellitus in in third trimester ([facility]) Supervision of high risk in third trimester ([facility]) History of pre-eclampsia H/O macrosomia in infant in prior , currently (HCC) 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 Planned Goals not documented [facility] Work Phone: Immunizations Immunization Date Immunization Notes Care Provider Shirley smiley 10-04-2024 tetanus toxoid, redu vicki diphtheria toxoid, and acellular pertussis vaccine, adsorbed Piper Julian MD Work Phone: [facility] 03-27-[address] Jamari Byrne MD Work Phone: [facility] 03-27-2016 influenza virus vacc ine, unspecified formulation [facility] 11-22-2013 pneumococcal polysaccharide vaccine, 23 valent Piper Julian MD Work Phone: [facility] 03-29-2013 influenza, seasonal, injectable Piper Julian MD Work Phone: [facility] 03-29-2013 influenza virus vacc ine, unspecified formulation Mary GOODWIN Work Phone: [facility] 09-17-2012 hepatitis A vaccine, pediatric/adolescent dosage, 2 dose schedule Piper Julian MD Work Phone: [facility] 01-30-2012 hepatitis A vaccine, pediatric/adolescent dosage, 2 dose schedule Piper Julian MD Work Phone: [facility] 10-11-2010 HPV, unspecified formulation Piper Julian MD Work Phone: [facility] 10-11-2010 tetanus toxoid, redu vicki diphtheria toxoid, and acellular pertussis vaccine, adsorbed Piper Julian MD Work Phone: [facility] 11-05-2007 human papilloma viru s vaccine, quadrivalent Piper Julian MD Work Phone: [facility] 09-03-2007 HPV, unspecified formulation Piper Julian MD Work Phone: [facility] 09-03-2007 meningococcal polysaccharide vaccine (MPSV4) Piper Julian MD Work Phone: [facility] 11-27-2000 diphtheria, tetanus toxoids and acellular pertussis vaccine, unspecified formulation Piper Julian MD Work Phone: [facility] 11-27-2000 measles, mumps and rubella virus vaccine Piper Julian MD Work Phone: [facility] 06-09-1999 HPV, unspecified formulation [facility] 03-05-1999 haemophilus influenz ae type b vaccine, conjugate unspecified formulation Piper Julian MD Work Phone: [facility] 03-05-1999 trivalent poliovirus vaccine, live, oral Piper Julian MD Work Phone: [facility] 02-15-1998 diphtheria, tetanus toxoids and acellular pertussis vaccine, unspecified formulation Piper Julian MD Work Phone: [facility] 07-26-1997 diphtheria, tetanus toxoids and pertussis vaccine Piper Julian MD Work Phone: [facility] 07-26-1997 haemophilus influenz ae type b vaccine, conjugate unspecified formulation Piper Julian MD Work Phone: [facility] 07-26-1997 trivalent poliovirus vaccine, live, oral Piper Julian MD Work Phone: [facility] 04-26-1997 diphtheria, tetanus toxoids and pertussis vaccine Piper Julian MD Work Phone: [facility] 04-26-1997 haemophilus influenz ae type b vaccine, conjugate unspecified formulation Piper Julian MD Work Phone: [facility] 04-26-1997 measles, mumps and rubella virus vaccine Piper Julian MD Work Phone: [facility] 04-26-1997 trivalent poliovirus vaccine, live, oral Piper Julian MD Work Phone: [facility] 01-14-1996 DTP-Haemophilus influenzae type b conjugate vaccine Piper Julian MD Work Phone: [facility] 01-14-1996 hepatitis B vaccine, pediatric or pediatric/adolescent dosage Piper Julian MD Work Phone: [facility] 01-14-1996 trivalent poliovirus vaccine, live, oral Piper Julian MD Work Phone: [facility] 1995 hepatitis B vaccine, adult dosage Piper Julian MD Work Phone: [facility] 1995 hepatitis B vaccine, adult dosage Piper Julian MD Work Phone: [facility] Payers Date Payer Category Payer Unknown [id number] 2024 Self-pay 2024 Medicare (Managed Care) 1.2. [id number] 2022 Dual Eligibility Medicare/Medicaid Organization [id number] 2022 Medicaid [id number] .[id number] 2021 Medicare [id number] [id number] .[id number] 2021 Medicare [id number] 2019 Unknown 2016 Medicaid [id number] 2016 Unknown [id number] 2016 Medicaid [id number] 2016 Medicaid [facility] MEDICAID [employer] MED[employer]ID [id number] 2016-Present [id number] .[id number] 2016 Unknown [id number] [id number] .7.3.093481.315 1995 Unknown [id number] 2.16.840.1.192043.3.579.2 .479 1995 Unknown [id number] 2.16.840.1.810288.3.579.2 .479 1995 Unknown [id number] 2.16.840.1.016566.3.579.2 .900 1995 Unknown [id number] 2.16.840.1.870287.3.579.2 .903 1995 Unknown [id number] 2.16.840.1.675987.3.579.2 .903 1995 Unknown [id number] 2.16.840.1.294289.3.579.2 .903 1995 Unknown [id number] 2.16.840.1.631390.3.579.2 .903 1995 Unknown [id number] 2.16.840.1.754229.3.579.2 .903 1995 Unknown [id number] 2.16840.1.724483.3.579.2 .903 1995 Unknown [id number] 2.16840.1.066194.3.579.2 .903 1995 Unknown [id number] 2.16.840.1.731044.3.579.2 .174 1995 Unknown [id number] 2.16.840.1.192834.3.579.2 .903 1995 Unknown [id number] 2.16.840.1.087591.3.579.2 .651 1995 Unknown [id number] 2.16.840.1.711781.3.579.2 .651 1995 Unknown [id number] 2.16.840.1.402032.3.579.2 .1245 1995 Unknown [id number] 2.16.840.1.191169.3.579.2 .1245 1995 Unknown [id number] 2.16.840.1.158996.3.579.2 .983 1995 Unknown [id number] 2.840.1.555047.3.579.2 .983 1995 Unknown [id number] 2.840.1.307403.3.579.2 .124 1995 Unknown [id number] 2.840.1.760018.3.579.2 .1243 1995 Unknown [id number] 2.840.1.134516.3.579.2 .124 1995 Unknown [id number] 2.0.1.226511.3.579.2 .1243 1995 Unknown [id number] 2.0.1.533624.3.579.2 .1243 1995 Unknown [id number] 2.0.1.752519.3.579.2 .1242 1995 Unknown [id number] 2.0.1.545228.3.579.2 .1242 1995 Unknown [id number] 2.0.1.487876.3.579.2 .1242 1995 Unknown [id number] 2.840.1.921030.3.579.2 .1243 Unknown [id number] Medicaid MEDICAID [facility] [id number] Effective for all dates [id number] .7.3.011933.315 Unknown [id number] 840.1.167155.3.579.2 .462 Unknown [id number] 840.1.967150.3.579.2 .462 Unknown [id number] 2840.1.880239.3.579.2 .462 Unknown [id number] 07.25.830.1.855430.3.579.2 .462 Unknown [id number] 2.16.840.1.850398.3.579.2 .462 Unknown [id number] 2.16.840.1.888217.3.579.2 .462 Unknown [id number] 2.16.840.1.125474.3.579.2 .462 Unknown [id number] 2.16.840.1.456244.3.579.2 .462 Unknown [id number] 2.16.840.1.353253.3.579.2 .462 Unknown [id number] 2.16.840.1.247104.3.579.2 .462 Social History Date Type Detail Facility Start: 09-12-2018 End: 05-03-2024 Tobacco smoking status DCIS Current every day smoker [facility] Start: 12-24-2009 End: 06-03-2016 History of tobacco use Cigarette Smoker [facility] Start: 09-12-2018 End: 03-09-2025 Cigarettes smoked current (pack per day) - Reported [facility] Comment on above: 06/10 PPD; Start: 1995 Sex Assigned At Not on file [facility] Start: 02-10-2019 End: 08-17-2022 Alcohol intake Ex-drinker (finding) [facility] Start: 06-23-2016 Alcohol Comment rare [facility] Start: 12-08-2019 End: 03-09-2025 Tobacco use and exposure Never used [facility] Start: 08-07-2022 End: 09-06-2024 Exposure to SARS-CoV-2 (event) Not sure [facility] Tobacco smoking consumption unknown [facility] Start: 12-13-2022 End: 03-09-2025 Tobacco use panel [facility] Work Phone: Start: 1995 [facility] Start: 03-12-2017 Gender identity Identifies as female gender (finding) [facility] Work Phone: Start: 09-20-2022 Sexual orientation Bisexual (finding ) [facility] Work Phone: Start: 08-19-2023 End: 02-19-2025 Alcohol intake Current non-drinker of alcohol (finding) [facility] Start: 12-11-2016 End: 05-04-2022 National Score (1-100), lower number is lower risk 80 [facility] Start: 04-18-2024 End: 03-09-2025 Alcoholic beverage intake Lifetime non-drinker (finding) [facility] Work Phone: The thought of harming myself has occurred to me Never [facility] Start: 05-03-2024 Education 15 [facility] Start: 03-27-2024 [facility] Start: 05-28-2024 Sexual orientation Heterosexual (fin zain) [facility] Start: 09-06-2024 Tobacco Comment Smokes 2 cigar ettes a day [facility] Work Phone: Start: 03-12-2017 End: 09-24-2024 Sex Female (finding) [facility] Start: 03-09-2025 Tobacco smoking status NHIS Ex-smoker [facility] Start: 12-24-2009 History of tobacco use Current smoker [facility] Work Phone: NEGATED: Highlighted row - - [address] Work Phone: Medical Equipment Procedure Code Equipment Code Equipment Origin al Text Equipment Identifier Dates [id number] Start: 05-05-2018 End: 05-04-2024 Inject 1 each as directed 2 (two) times a day as needed . [id number] Start: 05-05-2018 by Miscellaneous route daily as needed . [id number] Start: 02-22-2019 Inject 1 each as directed daily as needed . [id number] Start: 02-22-2019 Accu-Chek Soraya Plus In Vitro Strip TEST ONCE DAILY. Quantity: 1 Refills: 3 Obnadirer Real WEBSTERn Start : 28-Sep-2019 Active 100 Strip Box Start: 09-28-2019 Accu-Chek FastCl ix Lancets USE DIRECTED. Quantity: 1 Refills: 3 Oberhauser DO, Rich Start : 28-Sep-2019 Active 102 Unit Box Start: 09-28-2019 Accu-Chek Soraya Plus In Vitro Strip TEST ONCE DAILY. Quantity: 1 Refills: 3 Rich Ng DO Start : 28-Sep-2019 Active 100 Strip Box Start: 09-28-2019 Accu-Chek FastCl ix Lancets USE DIRECTED. Quantity: 1 Refills: 3 Rich Ng DO Start : 28-Sep-2019 Active 102 Unit Box Start: 09-28-2019 1 strip 1 (one) time each day. [id number] Start: 11-13-2021 1 (one) time each day. [id number] Inject nightly [id number] Start: 12-13-2022 End: 12-13-2023 Use to inject nightly [id number] Sta rt: 12-20-2022 End: 12-25-2023 Use with lantus pen 10 units at bedtime subcutaneous [id number] Start: 03-17-2023 Use to inject 4 times per day [id number] Start: 12-25-2023 End: 12-24-2024 4 times/day [id number] Start: 05-03-2024 End: 01-13-2025 Use with blood g lucose test four times a day. [id number] Start: 06-14-2024 End: 09-27-2024 Use with blood g lucose test four times a day. [id number] Start: 06-14-2024 End: 09-24-2024 Use as instructe d - TEST BLOOD SUGARS 4 TIMES DAILY [id number] Start: 08-03-2024 Use with blood g lucose test four times a day. Insulin Dep? Yes [id number] Start: 08-03-2024 End: 08-10-2024 Use with blood g lucose test four times a day. Insulin Dep? Yes [id number] Start: 08-10-2024 4 TIMES/DAY [id number] Start: 01-13-2025 Goals Date Patient Goal Desired Activity /State Personal health goal Functional Status Date Assessment Result Facility 03-09-2025 Patient Health Questionnaire 2 item (PHQ-2) [Reported] [facility] Work Phone: 03-09-2025 Functional status 128/80 025 8:17 AM Tiffanie Ochoa MA 128/80 [facility] Work Phone: 03-09-2025 Vital signs 78 03/09/2025 8: 17 AM EDT Tiffanie Harvey MA [facility] Work Phone: 01-24-2025 [place] - suicide severity rating scale screener - recent [C-SSRS] [facility] Work Phone: 12-21-2016 Are you deaf, or do you have serious difficulty hearing No 12/21/2016 10:45 AM Krys Du, BETSY No [facility] 12-21-2016 Are you blind, or do you have serious difficulty seeing, even when wearing glasses No 12/21/2016 10:45 AM Krys Du, BETSY No [facility] 12-21-2016 Do you have serious difficulty walking or climbing stairs No 12/21/2016 10:45 AM Krys Du, BETSY No [facility] 12-21-2016 Do you have difficul ty dressing or bathing No 12/21/2016 10:45 AM Krys Du, BETSY No [facility] 12-21-2016 Because of a physica l, mental, or emotional condition, do you have difficulty doing errands alone such as visiting a physician's office or shopping No 12/21/2016 10:45 AM Krys Du, BETSY [facility] Work Phone: NEGATED: Highlighted row Functional performance Functional status health issues are not documented Disease [place] [id number] [employer] Work Phone: Mental Status Date Assessment Result Facility 12-16-2024 Cognitive function Level Of Cons ciousness Awake;Alert [facility] Work Phone: 12-21-2016 Because of a physical, mental, or emotional condition, do you have serious difficulty concentrating, remembering, or making decisions No 12/21/2016 10:45 AM Krys Du, BETSY No [facility] NEGATED: Highlighted row Cognitive function [Interpretation] Cognitive status health issues are not documented Disease [facility] [employer] Work Phone: Clinical Notes 01-01-2017 to 03-09-2025 Jamari Byrne MD - 03/09/2025 8:00 AM EDTPatient InstructionsJuana Whitten LPN - 02/21/2025 6:10 PM RORY Martinez - 02/21/2025 6:10 PM EDTPatient InstructionsPatient Instructions Note Date & Type Note Facility 03-09-2025 History of Presen t illness Narrative Subjective Patient ID: Melissa Morris" is a 30 y.o. female who presents for Annual Exam (Still having complaints of congestion and loss of appetite. Has been having n/v x 2 weeks. ). HPI Patient Health Questionnaire-2 Score: 4 (03/09/2025 8:22 AM) Smoking former [facility] Depressed and irritiated and counseling center in [place] Wanting start CBT EMDR EKG sinus Tachycardia [...] arm) Pulse 78 Ht 1.575 m (5' 2") Wt 81.2 kg (179 lb) SpO2 100% [...] 03/09/25 8:57 AM documented in this encounter [facility] Work Phone: 03-09-2025 Instructions Jamari Byrne MD - 03/09/2025 8:00 AM EDT Current weight: 81.2 kg (179 lb) Weight change since last visit (-) denotes wt loss -7.4 lbs Weight loss needed to achieve BMI 25: 42.6 Lbs Weight loss needed to achieve BMI 30: 15.3 Lbs documented in this encounter [facility] Work Phone: 02-21-2025 History of Presen t illness Narrative Main historian: Patient Patient presents with Cough Associated symptoms: N/V, cough- productive at times, congestion Onset: 5 days Self treatments: steam, tylenol, Alleviating factors: n/a Aggravating factors: n/a Exposures: none known HPI Melissa Byrne 1995 [facility] to [facility] with Chief Complaint Patient presents [...] Reported on 02/21/2025) glucose blood test strips ([employer]) Strip strip 4 strips by Instructed [...] Result Value Ref Range SARS-COV-2 Rapid Antigen [id number] NOT DETECTED NARRATIVE -1 This test was [...] AND CURETTAGE misscarriage documented in this encounter [facility] 02-19-2025 Instructions Ángela Norris APRN.REYES - 02/19/2025 11:12 AM EDT 1. Bacterial [...] you feel nauseous. documented in this encounter [facility] 02-19-2025 Note [facility] 02-19-2025 History of Presen t illness Narrative [facility] Melissa Byrne is a 30 year old [...] kg/m PAST MEDICAL HISTORY Diagnosis Date Asthma ([facility]) Bipolar H/O macrosomia in infant in prior , currently ([facility]) 05/07/2024 Herpes simplex type 2 (HSV-2) infection affecting , antepartum, unspecified trimester ([facility]) 04/19/2024 Hyperlipidemia LGA (large for gestational age) ([facility]LY [facility]) 12/23/2016 12/23/16 - >95% Polyhydramnios ([facility]) 01/01/2017 Pre-existing type 2 diabetes mellitus in in first trimester ([facility]) 06/15/2024 First trimester Hgb A1c 10.5%, now follows with Dr. Guillermo Recurrent UTI Type 2 diabetes mellitus ([facility]) PAST SURGICAL HISTORY Procedure Laterality Date CHOLECYSTECTOMY D&C, DIAG AND/OR THERAPEUTIC 2017 ALLERGIES Aluminum-Magnesium Hydroxide, Aripiprazole, Quetiapine, Metoclopramide, Promethazine, Zofran [Ondansetron], and Zoloft [Sertraline] MEDICATIONS insulin NPH (HUMULIN N NPH INSULIN KWIKPEN) 100 unit/mL (3 mL) injection pen Inject 20 units at bed time insulin lispro (HUMALOG KWIKPEN INSULIN) 100 unit/mL Humalog 8 units prior to meals (+5 units with "higher carb" meals) acyclovir (ZOVIRAX) 400 mg tablet Take 1 tablet by mouth two times a day. Insulin [place], Disposable, (BD ULTRAFINE III MINI PEN) 31 gauge x 3/16" 4 TIMES/DAY lancets (RMDMgroupTOUCH DELICA PLUS LANCET) 30 gauge Use with [...] Discussed expected course of illness Ángela Norris APRN.[facility] and Recording using [employer] software for draft documentation of the visit was discussed with the patient/authorized community health program representative; all questions welcomed and answered. Patient/authorized community health program representative agreed to proceed Disposition The patient was discharged. Procedures [1] Social History Tobacco Use Smoking status: Every Day Current packs/day: 0.50 Average packs/day: 0.5 packs/day for 14.0 years (7.0 ttl pk-yrs) Types: Cigarettes Smokeless tobacco: Never Vaping Use Vaping status: Never Used Substance Use Topics Alcohol use: No Drug use: No documented in this encounter [facility] 02-01-2025 Telephone encounter Note Rx sent KB [facility] 02-01-2025 Miscellaneous Notes Rx sent KB Per last office notes patient instructions are as below: NPH 20 units at bedtime Humalog 8 units prior to meals (+5 units with "higher carb" meals) New prescription need to be sent to the pharmacy [facility] insurance and explained the situation. They said the pharmacy has to give them a call. Patient is calling asking to please send her insulin to [facility]. She has been without and has not eaten. Call her as soon as it is sent at [phone]. Patient has refills, but the problem is [...] Byrne's office (no relation to patient) phone: [phone]. Spoke to patient. She stated she left her insulin in the car for days. She spoke to the pharmacy. They will fill her prescriptions. We will call her back with 's advise. Pt thinks both her Insulins (Humalog and NPH) might be "bad batches" She says this because within about 5-10 mins of taking them (more so the Humalog) she feels a bit "nauseous and yucky" Couldn't really describe it better than that for me Said her BS was not super high before her insulin but she might have been in the mid 200's, even up to about 280 A few times she checked her BS (around the time she didn't feel good) and readings were about 110-120 ....which she commented "those are normal for other people" but not necessarily for her ONSET this started occurring in the days AFTER her last visit with Dr. Guillermo on 01/20 She suspects she might not have refrigerated them appropriately ..? Pt is asking how long they can go without refrigeration before they "go bad" She also thinks they could be bad [...] something Dr. Guillermo can do? Please use: e- [facility] [address] [place] [phone] [phone] [facility] [phone] [[phone]] she feels they can override things to get it done if needed.. Also: Pt wanted to know about recommended refrigeration time-frames for insulin Call back # [phone] vmx/mycharts both okay Thanks documented in this encounter [facility] 02-01-2025 Telephone encounter Note Per last office notes patient instructions are as below: NPH 20 units at bedtime Humalog 8 units prior to meals (+5 units with "higher carb" meals) New prescription need to be sent to the pharmacy [facility] 02-01-2025 [facility] and explained the situation. They said the pharmacy has to give them a call. [facility] 02-01-2025 Telephone encounter Note Patient is calling asking to please send her insulin to [facility] in [facility]. She has been without and has not eaten. Call her as soon as it is sent at [phone]. [facility] 02-01-2025 Telephone encounter Note Patient has refills, but the problem is the insurance will not cover, because it is early to fill.Checked with her pharmacist. He advised patient call the insurance if they can override it. [facility] 02-01-2025 Telephone encounter Note FYI: Dr. Byrne's office (patient's PCP) called to advise that patient is also asking their office to prescribe her insulin, they declined. Aquiles @ Dr. Byrne's office (no relation to patient) phone: [phone]. [facility] Work Phone: 02-01-2025 Telephone encounter Note Spoke to patient. She stated she left her insulin in the car for days. She spoke to the pharmacy. They will fill her prescriptions. We will call her back with 's advise. [facility] 02-01-2025 Telephone encounter Note Pt thinks both her Insulins (Humalog and NPH) might be "bad batches" She says this because within about 5-10 mins of taking them (more so the Humalog) she feels a bit "nauseous and yucky" Couldn't really describe it better than that for me Said her BS was not super high before her insulin but she might have been in the mid 200's, even up to about 280 A few times she checked her BS (around the time she didn't feel good) and readings were about 110-120 ....which she commented "those are normal for other people" but not necessarily for her ONSET this started occurring in the days AFTER her last visit with Dr. Guillermo on 01/20 She suspects she might not have refrigerated them appropriately ..? Pt is asking how long they can go without refrigeration before they "go bad" She also thinks they could be bad [...] something Dr. Guillermo can do? Please use: [facility] [address] [place] [phone] [phone] [facility] [phone] [[phone]] she feels they can override things to get it done if needed.. Also: Pt wanted to know about recommended refrigeration time-frames for insulin Call back # [phone] vmx/mycharts both okay Thanks [facility] 01-31-2025 History of Presen t illness Narrative Subjective Patient ID: Melissa Morris" is a 30 y.o. female who presents for Diabetes (Lab Results/ Component Value Date / HGBA1C 7.1 (A) 01/20/2025 ), Exercise-induced asthma, and ER Follow-up (01/24/25 [facility] ; chest pain; EKG done/01/29/25 [facility]; acute sinusitis, URI). Diabetes She has type [...] 180-200 mg/dl. She does not see a shore man.Eye exam is current. No data recorded A1c [...] units prior to meals (+5 units with "higher carb" meals) 3) let me know if your [...] and type 2 diabetes. This patient has - rey saw retina last week- states DR cortes [...] in chest Asthma albuterol Smoking 1/2 ppd [facility] Rx This week will follow up them [...] under the skin once daily at bedtime. [facility] prescribes - insulin lispro 100 unit/mL injection; Inject 8 Units under the skin 3 times daily (morning, midday, late afternoon). With meals; plus 5 units for increased carbs Anxiety and depression We watched a video on proper spacer use Jamari Byrne MD 01/31/25 5:05 PM documented in this encounter [facility] Work Phone: 01-28-2025 Note [facility] 01-28-2025 History of Presen t illness Narrative [facility] Mary Melissa Byrne is a 30 year old female. Patient presents with: Nausea & Vomiting: X 1 week, emesis 3-4 times a day, Feels like BP and HR are increased HPI Nausea and Emesis: - Onset since last . 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 - Able to keep [...] Mellitus: - Blood sugar levels described as "out of whack." - Unable to take insulin due to inability to eat. - Monitoring blood sugar at home with two meters showing different readings. - Last insulin dose was yesterday. - Reports feeling "pins and needles" sensation, attributed to neuropathy. Status: - 7 [...] miscarriage; current baby is her third. - [place] has been staying with her mother due [...] kg/m PAST MEDICAL HISTORY Diagnosis Date Asthma (FORM[facility]LY [facility]) Bipolar H/O macrosomia in infant in prior , currently (FORM[facility]) 05/07/2024 Herpes simplex type 2 (HSV-2) infection affecting , antepartum, unspecified trimester ([facility]) 04/19/2024 Hyperlipidemia LGA (large for gestational age) infant ([facility]LY [facility]) 12/23/2016 12/23/16 - >95% Polyhydramnios (FORM[facility]LY [facility]) 01/01/2017 Pre-existing type 2 diabetes mellitus in in first trimester ([facility]) 06/15/2024 First trimester Hgb A1c 10.5%, now follows with Dr. Guillermo Recurrent UTI Type 2 diabetes mellitus ([facility]LY [facility]) PAST SURGICAL HISTORY Procedure Laterality Date CHOLECYSTECTOMY D&C, DIAG AND/OR THERAPEUTIC 2018 ALLERGIES Aluminum-Magnesium Hydroxide, Aripiprazole, Quetiapine, Metoclopramide, Promethazine, Zofran [Ondansetron], and Zoloft [Sertraline] MEDICATIONS acyclovir (ZOVIRAX) 400 mg tablet Take 1 tablet by mouth two times a day. Insulin [place], Disposable, (BD ULTRAFINE III MINI PEN) 31 gauge x 3/16" 4 TIMES/DAY insulin NPH (HUMULIN N NPH INSULIN KWIKPEN) 100 unit/mL (3 mL) injection pen 90 units at bedtime lancets (TMS DELICA PLUS LANCET) 30 gauge Use with blood glucose test four times a day. Insulin Dep? Yes insulin lispro (HUMALOG KWIKPEN INSULIN) 100 unit/mL 23 -23 - 26 units prior to each meal respectively + scale (upto 100 units/day) blood sugar diagnostic ([employer] VERIO TEST STRIPS) test strip Use as instructed - TEST BLOOD SUGARS 4 TIMES DAILY Blood-Glucose Meter (TMS VERIO FLEX METER) Use to check blood [...] others at this time. and Recording using [employer] software for draft documentation of the visit was discussed with the patient/authorized community health program representative; all questions welcomed and answered. Patient/authorized community health program representative agreed to proceed Disposition The patient [...] Drug use: No documented in this encounter [facility] 2025 Telephone encounter Note Noted, thank you [facility] 2025 Miscellaneous Notes Noted, thank you Patient called [facility] registration to cancel her procedure scheduled on 01/28/25 due to illness. Patient will contact office when ready to reschedule. documented in this encounter [facility] 2025 Telephone encounter Note Patient called [facility] registration to cancel her procedure scheduled on 01/28/25 due to illness. Patient will contact office when ready to reschedule. [facility] 01-24-2025 Physician Emergency department Note Chest pain. [...] nausea and vomiting and was seen at [place] [facility] twice because of the symptoms. Patient admits to smoking 1/2 pack/day. States her father had a NV age 50. She admits to history of bipolar affective disorder, asthma, type 2 diabetes, depression, anxiety. Patient denies ever having a cardiac stress test or heart cath. 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 Constitutional: General: She is awake. Appearance: Normal appearance. She is overweight. HENT: Head: Normocephalic and atraumatic. Jaw: There is normal jaw occlusion. Right Ear: Hearing and external ear normal. Left Ear: Hearing and external ear normal. Nose: Nose normal. No congestion or rhinorrhea. Mouth/Throat: Lips: [place]. Mouth: Mucous membranes are moist. Pharynx: Oropharynx [...] Urine Colorless (*) Appearance, Urine Clear Specific [place], Urine 1.004 (*) pH, Urine 6.5 Protein, [...] performed using a different test methodology at [facility] than other [facility]. Direct result comparison should only be made within the same method. D-DIMER, VTE EXCLUSION - Normal D-Dimer, Quantitative VTE Exclusion 456 Narrative: The VTE Exclusion D-Dimer assay is reported in ng/mL Fibrinogen Equivalent Units (FEU). Per second shift supervisor's instructions for use, a value of less [...] performed using a different testing methodology at [facility] than at other [facility]. Direct result comparisons should only [...] performed using a different testing methodology at [facility] than at other [facility]. Direct result comparisons should only be made within the same method. TROPONIN SERIES- (INITIAL, 1 HR) Narrative: The following orders were created for panel order Troponin I Series, High Sensitivity (0, 1 HR). Procedure Abnormality Status --------- ------ Troponin I, High Sensiti...[[id number]] Normal Final result Troponin, High Sensitivi...[[id number]] Normal Final result Please view results for [...] Abnormality Status --------- ------ Urinalysis with Reflex C...[[id number]] Abnormal Final result Extra Urine Bolton Tube[[id number]] In process Please view results for these tests on the individual orders. EXTRA URINE BOLTON TUBE XR chest 1 view Final Result No acute pathologic findings are identified. There is no interval change when compared to the previous examination. MACRO: none Signed by: Milly Juarez 01/24/2025 2:56 PM Dictation workstation: [id number] Procedures Medical Decision Making Patient was seen [...] The heart rate is 102 bpm. The GA interval is 142 ms. The QRS duration is 84 ms. The QTc is 492 ms. Russell is 60 degrees. Diagnoses as of 01/24/251710 Acute chest pain Ty Shannon DO 01/24/251710 [facility] Work Phone: 01-24-2025 Emergency department [...] nausea and vomiting and was seen at [place] [facility] twice because of the symptoms. Patient admits to smoking 1/2 pack/day. States her father had a NV age 50. She admits to history of bipolar affective disorder, asthma, type 2 diabetes, depression, anxiety. Patient denies ever having a cardiac stress test or heart cath. 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 Constitutional: General: She is awake. Appearance: Normal appearance. She is overweight. HENT: Head: Normocephalic and atraumatic. Jaw: There is normal jaw occlusion. Right Ear: Hearing and external ear normal. Left Ear: Hearing and external ear normal. Nose: Nose normal. No congestion or rhinorrhea. Mouth/Throat: Lips: [place]. Mouth: Mucous membranes are moist. Pharynx: Oropharynx [...] Urine Colorless (*) Appearance, Urine Clear Specific [place], Urine 1.004 (*) pH, Urine 6.5 Protein, [...] HCG measurement is performed using the [employer] Ranger Access Immunoassay which detects intact HCG and free beta HCG subunit. This test is not indicated for use as a tumor marker. HCG testing is performed using a different test methodology at [facility] than other [facility]. Direct result comparison should only be made within the same method. D-DIMER, VTE EXCLUSION - Normal D-Dimer, Quantitative VTE Exclusion 456 Narrative: The VTE Exclusion D-Dimer assay is reported in ng/mL Fibrinogen Equivalent Units (FEU). Per second shift supervisor's instructions for use, a value of less [...] performed using a different testing methodology at [facility] than at other [facility]. Direct result comparisons should only [...] performed using a different testing methodology at [facility] than at other [facility]. Direct result comparisons should only be made within the same method. TROPONIN SERIES- (INITIAL, 1 HR) Narrative: The following orders were created for panel order Troponin I Series, High Sensitivity (0, 1 HR). Procedure Abnormality Status --------- ------ Troponin I, High Sensiti...[[id number]] Normal Final result Troponin, High Sensitivi...[[id number]] Normal Final result Please view results for [...] Abnormality Status --------- ------ Urinalysis with Reflex C...[[id number]] Abnormal Final result Extra Urine Bolton Tube[[id number]] In process Please view results for these tests on the individual orders. EXTRA URINE BOLTON TUBE XR chest 1 view Final Result No acute pathologic findings are identified. There is no interval change when compared to the previous examination. MACRO: none Signed by: Milly Juarez 01/24/2025 2:56 PM Dictation workstation: [id number] Procedures Medical Decision Making Patient was seen [...] The heart rate is 102 bpm. The GA interval is 142 ms. The QRS duration is 84 ms. The QTc is 492 ms. Russell is 60 degrees. Diagnoses as of 01/24/251710 Acute chest pain Ty Shannon DO 01/24/251710 documented in this encounter [facility] Work Phone: 01-23-2025 Hospital Discharg e instructions Additional Instructions Plenty of fluids and rest. Zofran as needed for nausea you may swallow it or let dissolve on your tongue. Watch your blood sugars closely tonight they were elevated at 229. Follow-up with your doctor as needed. [facility] Work Phone: 01-20-2025 History of Presen [...] during that - had macrosomia, delivered in [place]. She was initially diagnosed with type 2 [...] Take an + additional 5 units with "Higher carb" meals After delivery- resumed the following: NPH 20 units at bedtime Humalog 8 units prior to meals (+5 units with "higher carb" meals) She has been taking the insulin [...] HISTORY Diagnosis Date Asthma ([facility]) Bipolar H/O macrosomia in in prior , currently ([facility]) 05/07/2024 Herpes simplex type 2 (HSV-2) infection affecting , antepartum, unspecified trimester ([facility]) 04/19/2024 Hyperlipidemia LGA (large for gestational age) ([facility]) 12/23/2016 12/23/16 - >95% Polyhydramnios ([facility]) 01/01/2017 Pre-existing type 2 diabetes mellitus in in first trimester ([facility]) 06/15/2024 First trimester Hgb A1c 10.5%, now follows with Dr. Guillermo Recurrent UTI Type 2 diabetes mellitus ([facility]) PAST SURGICAL HISTORY Procedure Laterality Date CHOLECYSTECTOMY [...] times a day. 60 tablet 3 Insulin [place], Disposable, (BD ULTRAFINE III MINI PEN) 31 gauge x 3/16" 4 TIMES/DAY 200 each 3 insulin NPH (HUMULIN N NPH INSULIN KWIKPEN) 100 unit/mL (3 mL) injection pen 90 units at bedtime 45 mL 11 lancets (TMS DELICA PLUS LANCET) 30 gauge Use with blood glucose test four times a day. Insulin Dep? Yes 100 Each 11 insulin lispro (HUMALOG KWIKPEN INSULIN) 100 unit/mL 23 -23 - 26 units prior to each meal respectively + scale (upto 100 units/day) 45 mL 11 blood sugar diagnostic ([employer] VERIO TEST STRIPS) test strip Use as instructed - TEST BLOOD SUGARS 4 TIMES DAILY 150 Each 11 Blood-Glucose Meter (TMS VERIO FLEX METER) Use to check blood [...] units prior to meals (+5 units with "higher carb" meals) 3) let me know if your [...] which included preparing to see the patient, [id number] patient care, completing clinical documentation, obtaining and/or [...] Drug use: No documented in this encounter [facility] 01-20-2025 Note [facility] 01-20-2025 Instructions Kelsy Guillermo DO - 01/20/2025 10:44 AM EDT 1) check blood sugars fasting and before meals 2) for now- continue your current regimen: NPH 20 units at bedtime Humalog 8 units prior to meals (+5 units with "higher carb" meals) 3) let me know if your blood sugars are elevated in between visits 4) see me in six months- fasting blood work prior documented in this encounter [facility] 01-19-2025 History and physical note Pre-Op History and Physical HPI: The patient is a 29 year old female presenting for pre-operative visit. She is scheduled for laparoscopic bilateral salpingectomy , for desires sterilization on 01/28/25. Procedure discussed along with risks, benefits and complications. Other alternatives discussed for management. Consent form signed? Yes. PAST MEDICAL HISTORY Diagnosis Date Asthma (FORM[facility]) Bipolar H/O macrosomia in infant in prior , currently ([facility]) 05/07/2024 Herpes simplex type 2 (HSV-2) infection affecting , antepartum, unspecified trimester ([facility]) 04/19/2024 Hyperlipidemia LGA (large for gestational age) ([facility]) 12/23/2016 12/23/16 - >95% Polyhydramnios ([facility]) 01/01/2017 Pre-existing type 2 diabetes mellitus in in first trimester ([facility]) 06/15/2024 First trimester Hgb A1c 10.5%, now follows with Dr. Guillermo Recurrent UTI Type 2 diabetes mellitus ([facility]) PAST SURGICAL HISTORY Procedure Laterality Date CHOLECYSTECTOMY [...] times a day. 60 tablet 3 Insulin [place], Disposable, (BD ULTRAFINE III MINI PEN) 31 gauge x 3/16" 4 TIMES/DAY 200 each 3 lancets (ONETOUCH [...] Topics Alcohol use: No Drug use: No [facility] 01-19-2025 History and physical note Pre-Op History [...] in prior , currently ([facility]) 05/07/2024 Herpes simplex type 2 (HSV-2) infection affecting , antepartum, unspecified trimester ([facility]) 04/19/2024 Hyperlipidemia LGA (large for gestational age) ([facility]) 12/23/2016 12/23/16 - >95% Polyhydramnios ([facility]) 01/01/2017 Pre-existing type 2 diabetes mellitus in in first trimester ([facility]) 06/15/2024 First trimester Hgb A1c 10.5%, now follows with Dr. Guillermo Recurrent UTI Type 2 diabetes mellitus ([facility]) PAST SURGICAL HISTORY Procedure Laterality Date CHOLECYSTECTOMY [...] times a day. 60 tablet 3 Insulin [place], Disposable, (BD ULTRAFINE III MINI PEN) 31 gauge x 3/16" 4 TIMES/DAY 200 each 3 lancets (ONETOUCH DELICA PLUS LANCET) 30 gauge Use with blood glucose test four times a day. Insulin Dep? Yes 100 Each 11 blood sugar diagnostic (RMDMgroupTOUCH VERIO TEST STRIPS) test strip Use as instructed - TEST BLOOD SUGARS 4 TIMES DAILY 150 Each 11 Blood-Glucose Meter ([employer] Group[employer] VERIO FLEX METER) Use to check blood [...] Drug use: No documented in this encounter [facility] 01-19-2025 Note [facility] 01-19-2025 History of Presen t illness Narrative VISIT Melissa Byrne is a 29 year old year old here for visit. Delivery Summary: 12/07/24 F- [place] ROS/ Recovery: Feeding: Bottle feeding problems: None Menses since delivery: none Menstrual pattern prior to : Regular periods [place] since delivery: Resumed Depression: denies symptoms of [...] harming myself has occurred to me. Never [place] Depression Scale Total 16 Feeling nervous, anxious, [...] N/A PAST MEDICAL HISTORY Diagnosis Date Asthma ([facility]) Bipolar H/O macrosomia in infant in prior , currently ([facility]) 05/07/2024 Herpes simplex type 2 (HSV-2) infection affecting , antepartum, unspecified trimester ([facility]) 04/19/2024 Hyperlipidemia LGA (large for gestational age) ([facility]) 12/23/2016 12/23/16 - >95% Polyhydramnios ([facility]) 01/01/2017 Pre-existing type 2 diabetes mellitus in in first trimester ([facility]) 06/15/2024 First trimester Hgb A1c 10.5%, now follows with Dr. Guillermo Recurrent UTI Type 2 diabetes mellitus ([facility]) PAST SURGICAL HISTORY Procedure Laterality Date CHOLECYSTECTOMY [...] discussed with the Patient or Patient's Authorized Loan Documents Closer. As applicable, any other physician, advance practice provider, medical student, or other health professional student that will be observing or involved in the sensitive examination for educational or training purposes was discussed with the Patient or Authorized Loan Documents Closer. The Patient or Authorized Loan Documents Closer has agreed to proceed with the sensitive [...] external genitalia normal, normal [place]tholin's glands, urethra, [place]'s glands, no vulvar lesions, no cervical lesions, [...] Whit Patel MD documented in this encounter [facility] 12-21-2024 Note [facility] 12-21-2024 History of Presen t illness [...] in parent's room, does not feel rested [place] since delivery: Not resumed Emotional support: Yes [...] William Gramajo MD documented in this encounter [facility] 12-16-2024 History and physi vicenta note [facility] 12-16-2024 Telephone encount er Note Patient notified and instructions given to go to L&D for evaluation. [facility] 12-16-2024 Miscellaneous Notes Formattin g of this [...] swelling that does not resolve when resting with:"pins & needles" sensation. Denies redness/warmth/pain in right leg. Patient states Left leg was swollen after delivery but swelling is minimal now. appointment 12/21/24. Patient requesting sooner appointment d/t headache & swelling. No openings tomorrow. documented in this encounter [facility] 12-16-2024 Telephone encount er Note to L&D for eval for preeclampsia. Piper Julian MD [facility] 12-16-2024 Telephone encount er Note Patient had a on 12/07/[address] Gramajo. Patient called c/o a pressure/tension headache X 4 days with nausea. Rates headache pain a 6 out of 10 on pain scale. Has taken tylenol with no relief. Denies vision issues, no upper abd/epigastric pain. Patient also c/o right lower leg swelling that does not resolve when resting with:"pins & needles" sensation. Denies redness/warmth/pain in right leg. Patient states Left leg was swollen after delivery but swelling is minimal now. appointment 12/21/24. Patient requesting sooner appointment d/t headache & swelling. No openings tomorrow. [facility] 12-15-2024 Telephone encount er Note Reviewed BG data- responded as follows: Hi Hoda- I hope all is well with you and the new addition to your family! Is this your current post insulin regimen? NPH 20 units at bedtime Humalog 8 units prior to meals (+5 units with "higher carb" meals) Assuming so- you should continue this as you are doing- your blood sugars look good- you have a f/u with me next month- will see you then, let me know if you need anything in the interim- thanks! KB [facility] 12-15-2024 Miscellaneous Notes Formattin g of this note might be different from the original. Reviewed BG data- responded as follows: Hi Hoda- I hope all is well with you and the new addition to your family! Is this your current post insulin regimen? NPH 20 units at bedtime Humalog 8 units prior to meals (+5 units with "higher carb" meals) Assuming so- you should continue this as you are doing- your blood sugars look good- you have a f/u with me next month- will see you then, let me know if you need anything in the interim- thanks! NILES documented in this encounter [facility] 12-09-2024 Progress note Note Date/Time December 09, 2024 8:46a m [facility] Medical Records Department [address] [place] [address] Progress Note - OBGYN 12/09/24 0845 MR#: [id number] Acct: [id number] Name: MELISSA BYRNE Rep #:[id number] : 1995 29 From: Krys Kulkarni MD PCP: Dr. Jamari Byrne MD Status:ADM IN Location: IN371-6 Subjective Subjective Doing well. Ambulating and voiding [...] Cosigner Signature (if applicable): CC: ~ Signed [facility] Work Phone: 1(636) 589-339207-03-2025 [facility] Medical Records Department [facility] [place] [address] Discharge Summary 12/09/2446 MR#: [id number] Acct: [id number] Name: MELISSA BYRNE Rep #: [id number] : 1995 29 From: Krys Kulkarni MD PCP: Dr. Jamari Byrne MD Status:DIS IN Location: UC234-8 Providers Date of Admission: 12/07/24 Date of [...] 1-2 and 6 weeks or as needed. [phone] Meaningful Use Info Meaningful Use Meaningful Use [...] Jamari Byrne MD; Dr. Krys Kulkarni MD [facility]07-03-2025 Progress note [facility] Medical Records Department [address] [place] [address] Progress Note - OBGYN 12/09/24 0845 MR#: [id number] Acct: [id number] Name: MELISSA BYRNE Rep #:[id number] : 1995 29 From: Krys Kulkarni MD PCP: Dr. Jamari Byrne MD Status:ADM IN Location: EJ996-2 Subjective Subjective Doing well. Ambulating and voiding [...] Cosigner Signature (if applicable): CC: ~ Signed [facility]07-02-2025 Telephone encounter Note* Telephone Encounter - Piper Julian MD - 12/08/2024 6:26 PM EDT nevermind, patient had plan in a [employer] message, I didn't see it initially. Thanks. RLR [facility]07-02-2025 Miscellaneous Notes* Telephone Encounter - Piper Julian MD - 12/08/2024 6:26 PM EDT nevermind, patient had plan in a mychart message, I didn't see it initially. Thanks. RLR * Telephone Encounter - Piper Julian MD - 12/08/2024 5:55 PM EDT Hoda delivered at [facility] on 12/07/24. We have her on insulin and would like to know if we should keep her on half her dose until follow up in January? Thanks! Piper Julian MD documented in this [facility] Telephone encounter Note * Telephone Encounter - Piper Julian MD - 12/08/2024 5:55 PM EDT Hoda delivered at [facility] on 12/07/24. We have her on insulin and would like to know if we should keep her on half her dose until follow up in January? Thanks! Piper Julian MD [facility]07-02-2025 Progress note Author Mariajose Nickerson [facility] Note Date/Time December 08, 2024 12:30 pm [facility] Medical Records Department [address] [place] [address] Progress Note - OBGYN 12/08/24 0837 MR#: [id number] Acct: [id number] Name: MELISSA BYRNE Rep #:[id number] : 1995 29 From: Mariajose Nickerson [facility] PCP: Dr. Jamari Byrne MD Status:ADM IN Location: XE587-5 Subjective Subjective Patient seen at bedside. Denies [...] % (Auto) 70.0, Lymph % (Auto) 22.0, [place]% (Auto) 6.0, Eos % (Auto) 1.0, Baso [...] Cosigner Signature (if applicable): CC: ~ Signed [facility] Work Phone: 1(443) 127-263307-02-2025 NoteHNO ID: [id number] Author: KRYS MURCIA RN Service: ? Author Type: Registered Nurse Type: Progress Notes Filed: 12/08/2024 13:54 Note Text: Patient delivered via at [facility] on 12/07/24 per William Gramajo MD . See OB Outcome note. [facility] History of Present illness Narrative* Krys Murcia RN - 12/08/2024 1:52 PM EDT Patient delivered via at [facility] on 12/07/24 per William Gramajo MD . See OB Outcome note. Krys Murcia RN documented in this encounterPrem[facility] Progress note [facility] Medical Records Department [address] [place] [address] Progress Note - OBGYN 12/08/24 0837 MR#: [id number] Acct: [id number] Name: MELISSA BYRNE Rep #:[id number] : 1995 29 From: Mariajose Nickerson CNM PCP: Dr. Jamari Byrne MD Status:ADM IN Location: UJ529-4 Subjective Subjective Patient seen at bedside. Denies [...] % (Auto) 70.0, Lymph % (Auto) 22.0, [place]% (Auto) 6.0, Eos % (Auto) 1.0, Baso [...] Cosigner Signature (if applicable): CC: ~ Signed [facility]07-01-2025 Procedure note [facility] Medical Records Department [address] [place] [address] OB Vaginal Delivery 12/07/242023 MR#: [id number] Acct: [id number] Name: MELISSA BYRNE Rep #:[id number] : 1995 29 From: William Gramajo MD PCP: Dr. Jamari Byrne MD Status:ADM IN Location: [place] [address] Maternal Data Information ADA Calculator Estimated Delivery [...] Vessel Description: 3 Vessels Cord Entanglement: None A Gender: Female (1 minute): 9 (5 minute): 10 Delayed Cord Clamping: Yes Fabric Pattern Grader director of cardiac rehabilitation: No Post Vaginal Deli Medications given after delivery: IV Pitocin Episiotomy Description: None Laceration: None Complication Complications: No 12/07/242025 Cosigner Signature (if applicable): CC: Dr. Jamari Byrne MD; Dr. William Gramajo MD~ Signed [facility]07-01-2025 History and physical note Author William Gramajo [facility] Note Date/Time December 07, 2024 1:42p [facility] Medical Records Department [address] [place] [address] H&P Exam - MOTION PICTURE COMMENTATOR 12/07/24 1223 MR#: [id number] Acct: [id number] Name: MELISSA BYRNE Rep #:[id number] : 1995 29 From: William Gramajo MD PCP: Dr. Jamari Byrne MD Status:ADM IN Location: WF376-4 HPI - General General Date of Admission: 12/07/24 HPI Narrative MELISSA BYRNE, is a 29 F who presents with contractions and was scheduled forinduction today. Maternal Data Information ADA Calculator Estimated Delivery Date Method Current WG Current Estimate 12/18/24 Manual 38w 3d PFSH [facility] Medical History (Updated 12/07/24 @ 13:40 by [...] Byrne MD; Dr. William Gramajo MD~ Signed [facility] Work Phone: 1(994) 786-758107-01-2025 History and physical note [facility] Medical Records Department [address] [place] [address] H&P Exam - MOTION PICTURE COMMENTATOR 12/07/24 1223 MR#: [id number] Acct: [id number] Name: MELISSA BYRNE Rep #:[id number] : 1995 29 From: William Gramajo MD PCP: Dr. Jamari Byrne MD Status:ADM IN Location: OD481-5 HPI - General General Date of Admission: [...] Byrne MD; Dr. William Gramajo MD~ Signed [facility]06-30-2025 Note Indication Evaluation of well-being Maternal [...] RDMS, RVT Read By: Pooja Latham M.D.MATERNAL [id number] Progress note* Quick Notes - Ronaldo Rubio MD - 12/06/2024 10:22 AM EDT Ab1 at 38w2ds with improved controlled type 2 diabetes using insulin BPP today 01/14 with VI 10 cm . Reports occ [place] ctrx Induction scheduled for tomorrow Patient reports good FM Denies bleeding or LOF 2+ dtr. Ronaldo Rubio MD [facility] Work Phone: [phone] Miscellaneous Notes* Quick Notes - Ronaldo Rubio MD - 12/06/2024 10:22 AM EDT Ab1 at 38w2ds with improved controlled type 2 diabetes using insulin BPP today 01/14 with VI 10 cm . Reports occ [place] ctrx Induction scheduled for tomorrow Patient reports good FM Denies bleeding or LOF 2+ dtr. Ronaldo Rubio MD documented in this encounterPrem[facility] Telephone encounter Note * Telephone Encounter - [...] Take an + additional 5 units with "Higher carb" meals (camilo with * if/when you take the extra insulin so I can see if it is working or not). take 1/2 of the Humalog if you don't feel like you're going to eat enough or eat a lower carb meal.Camilo with "0" if you take less insulin. Will review again next week (if applicable!)- thanks! KB [facility]06-30-2025 Miscellaneous Notes* Telephone Encounter - Kelsy Guillermo [...] Take an + additional 5 units with "Higher carb" meals (camilo with * if/when you take the extra insulin so I can see if it is working or not). take 1/2 of the Humalog if you don't feel like you're going to eat enough or eat a lower carb meal.Camilo with "0" if you take less insulin. Will review again next week (if applicable!)- thanks! KB documented in this encounterPrem[facility]06-30-2025 Instructions* Patient Instructions* Renetta Petersen MA - 12/06/2024 8:22 AM EDT SEQUENTIAL SCREENINGS The [facility] offers sequential screenings for women who are [...] testing. It will require an appointment withour hydroelectric production technician. This is not an ultrasound performed [...] the above symptoms, contact our office at [phone] and ask to speak with anurse. After hours, you can call doctors registry at [phone] OR call [facility] at [phone] ask to have the doctor data migration lead paged. If you consider this an emergency, dial 9-1-0 or go to your nearest emergency department. NEED HELP? Are you dealing with a violent or abusive relationship? Are you a victim of rape or sexual assult? Call [facility] ([place]) 24 hour Crisis Hotline: 600.748.2728 or 226-394-9133. MANUAL Your Guide to a Healthy manual is now on-line. Visit [email or web address] to download your free copy documented in this encounterPremier [facility]06-26-2025 [facility]06-[facility] History of Present illness Narrative* Keshav [...] SIGNATURE: Keshav Loving DO documented in this encounterPremier Health [facility]06-26-2025 Progress note* Quick Notes - Keshav Loving [...] 37-39 weeks. Patient requests induction Friday next 12/07/24 and does not want an induction sooner. Wants time for family to plan and she is currently sharinga car with father. Cont with scheduled BPP next week. NST reactive today Keshav Loving DO [facility]06-26-2025 Miscellaneous Notes* Quick Notes - Keshav Loving [...] 37-39 weeks. Patient requests induction Friday next 12/07/24 and does not want an induction sooner. Wants time for family to plan and she is currently sharinga car with father. Cont with scheduled BPP next week. NST reactive today Keshav Loving DO documented in this encounterPremier Health [facility]06-26-2025 Instructions* Patient Instructions* Rebeca Vazquez MA - 12/02/2024 10:05 AM EDT SEQUENTIAL SCREENINGS The [facility] offers sequential screenings for women who are [...] testing. It will require an appointment withour hydroelectric production technician. This is not an ultrasound performed [...] the above symptoms, contact our office at [phone] and ask to speak with anurse. After hours, you can call doctors registry at [phone] OR call [facility] at [phone] ask to have the doctor data migration lead paged. If you consider this an emergency, dial 9-1- or go to your nearest emergency department. NEED HELP? Are you dealing with a violent or abusive relationship? Are you a victim of rape or sexual assult? Call [facility] ([place]) 24 hour Crisis Hotline: 374.329.1107 or 253-135-0534. MANUAL Your Guide to a Healthy manual is now on-line. Visit [email or web address] to download your free copy documented in this encounterPremier Health [facility]06-25-2025 Telephone encounter Note * Telephone Encounter - [...] Take an + additional 5 units with "Higher carb" meals (camilo with * if/when you take the extra insulin so I can see if it is working or not). take 1/2 of the Humalog if you don't feel like you're going to eat enough or eat a lower carb meal.Camilo with "0" if you take less insulin. Will review again next week- thanks! KB [facility]06-25-2025 Miscellaneous Notes* Telephone Encounter - Kelsy Guillermo [...] Take an + additional 5 units with "Higher carb" meals (camilo with * if/when you take the extra insulin so I can see if it is working or not). take 1/2 of the Humalog if you don't feel like you're going to eat enough or eat a lower carb meal.Camilo with "0" if you take less insulin. Will review again next week- thanks! KB documented in this encounterPremier Health [facility]06-24-2025 Note Indication Evaluation of well-being Maternal obesity, [...] RDMS, RVT Read By: Elie Coronado M.D.MATERNAL [id number] Progress note* Quick Notes - William Gramajo [...] labor & FM precautions William Gramajo MD [facility]06-19-2025 Miscellaneous Notes* Quick Notes - William Gramajo [...] precautions William Gramajo MD documented in this encounterPremier Health [facility]06-19-2025 NoteL[facility]06-19-2025 History of Present illness Narrative* William [...] SIGNATURE: William Gramajo MD documented in this encounterPremier Health [facility]06-19-2025 Instructions* Patient Instructions* Teri Jack MA - 11/25/2024 8:48 AM EDT SEQUENTIAL SCREENINGS The [facility] offers sequential screenings for women who are [...] testing. It will require an appointment withour hydroelectric production technician. This is not an ultrasound performed [...] the above symptoms, contact our office at [phone] and ask to speak with anurse. After hours, you can call doctors registry at [phone] OR call [facility] at [phone] ask to have the doctor data migration lead paged. If you consider this an emergency, dial 9--4 or go to your nearest emergency department. NEED HELP? Are you dealing with a violent or abusive relationship? Are you a victim of rape or sexual assult? Call [facility] ([place]) 24 hour Crisis Hotline: 534.870.7894 or 991-161-5286. MANUAL Your Guide to a Healthy manual is now on-line. Visit [email or web address] to download your free copy documented in this encounterPremier Health [facility]06-19-2025 Telephone encounter Note * Telephone Encounter - [...] Take an + additional 5 units with "Higher carb" meals (camilo with * if/when you take the extra insulin so I can see if it is working or not). take 1/2 of the Humalog if you don't feel like you're going to eat enough or eat a lower carb meal.Camilo with "0" if you take less insulin. Will review again next week- thanks! Dr Guillermo [facility]06-19-2025 Miscellaneous Notes* Telephone Encounter - Kelsy Guillermo [...] Take an + additional 5 units with "Higher carb" meals (camilo with * if/when you take the extra insulin so I can see if it is working or not). take 1/2 of the Humalog if you don't feel like you're going to eat enough or eat a lower carb meal.Camilo with "0" if you take less insulin. Will review again next week- thanks! Dr Guillermo documented in this encounterPremier Health [facility]06-16-2025 Telephone encounter Note * Telephone Encounter - Piper Julian MD - 11/22/2024 12:31 PM EDT noted. We did receive a note from them at one point. She should follow up as they recommend and it is ok for her to undergo treatments during . Piper Julian MD [facility]06-16-2025 Miscellaneous Notes* Telephone Encounter - Piper Julian MD - 11/22/2024 12:31 PM EDT noted. We did receive a note from them at one point. She should follow up as they recommend and it is ok for her to undergo treatments during . Piper Julian MD documented in this encounterPremier Health [facility]06-16-2025 Note Indication Evaluation of growth, Evaluation of [...] 13 oz EFW by: Hadlock (HC-AC-FL) Extended Building Performance Specialist 7.4 mm Extremities / Bony Struc [place] [...] RDMS, RVT Read By: Alondra Segundo M.D.MATERNAL [id number] NoteLancaster [facility]06-12-2025 History of Present illness Narrative* Keshav [...] SIGNATURE: Keshav Loving DO documented in this encounterPremier Health [facility]06-12-2025 Progress note* Quick Notes - Keshav Loving [...] Keep scheduled follow up Keshav Loving DO [facility]06-12-2025 Miscellaneous Notes* Quick Notes - Keshav Loving [...] up Keshav Loving DO documented in this encounterPremier Health [facility]06-12-2025 Instructions* Patient Instructions* Rebeca Vazquez MA - 11/18/2024 2:25 PM EDT SEQUENTIAL SCREENINGS The [facility] offers sequential screenings for women who are [...] testing. It will require an appointment withour hydroelectric production technician. This is not an ultrasound performed [...] the above symptoms, contact our office at [phone] and ask to speak with anurse. After hours, you can call doctors registry at [phone] OR call [facility] at [phone] ask to have the doctor data migration lead paged. If you consider this an emergency, dial 9-1-2 or go to your nearest emergency department. NEED HELP? Are you dealing with a violent or abusive relationship? Are you a victim of rape or sexual assult? Call [facility] ([place]) 24 hour Crisis Hotline: 531.931.4198 or 494-985-7322. MANUAL Your Guide to a Healthy manual is now on-line. Visit [email or web address] to download your free copy documented in this encounterPremier Health [facility]06-11-2025 NoteL[facility]06-10-2025 Telephone encounter Note* Telephone Encounter - [...] Take an + additional 5 units with "Higher carb" meals (camilo with * if/when you take the extra insulin so I can see if it is working or not). take 2 of the Humalog if you don't feel like you're going to eat enough or eat a lower carb meal.Camilo with "0" if you take less insulin. Will review again next week- thanks! KB [facility]06-10-2025 Miscellaneous Notes* Telephone Encounter - Kelsy Guillermo [...] Take an + additional 5 units with "Higher carb" meals (camilo with * if/when you take the extra insulin so I can see if it is working or not). take 1/2 of the Humalog if you don't feel like you're going to eat enough or eat a lower carb meal.Camilo with "0" if you take less insulin. Will review again next week- thanks! KB documented in this encounterPremier Health [facility]06-09-2025 Note Indication Evaluation of well-being Maternal obesity, [...] RDMS, RVT Read By: Pooja Latham M.D.MATERNAL [id number] Progress note* Quick Notes - Keshav Loving [...] - RTO 1 wk Keshav Loving DO [facility]06-09-2025 Miscellaneous Notes* Quick Notes - Keshav Loving [...] wk Keshav Loving DO documented in this encounterPremier Health [facility]06-09-2025 Instructions* Patient Instructions* Rebeca Vazquez MA - 11/15/2024 8:24 AM EDT SEQUENTIAL SCREENINGS The [facility] offers sequential screenings for women who are [...] testing. It will require an appointment withour hydroelectric production technician. This is not an ultrasound performed [...] the above symptoms, contact our office at [phone] and ask to speak with anurse. After hours, you can call doctors registry at [phone] OR call [facility] at [phone] ask to have the doctor data migration lead paged. If you consider this an emergency, dial 9-- or go to your nearest emergency department. NEED HELP? Are you dealing with a violent or abusive relationship? Are you a victim of rape or sexual assult? Call [facility] ([place]) 24 hour Crisis Hotline: 169.633.8567 or 080-347-7444. MANUAL Your Guide to a Healthy manual is now on-line. Visit [email or web address] to download your free copy documented in this encounterPremier Health [facility]06-05-2025 Progress note* Quick Notes - Krys Kulkarni [...] (HCC) - ICD9: 648.03, 250.00, ICD10: O24.113 (primary diagnosis) - Controlled - URINE OB DIP B/O 2. pruritus, third trimester (HCC) - ICD9: 646.83, 698.9, ICD10: O99.713, L29.9 Labs normal - URINE OB DIP B/O 3. History of pre-eclampsia - ICD9: V13.29, ICD10: Z87.59 TruBP normal - URINE OB DIP B/O 4. H/O macrosomia in infant in prior , currently ([facility]) - ICD9: V23.49, ICD10: O09.299 - URINE OB DIP B/O 5. 34 weeks gestation of ([facility]LY [facility]) - ICD9: V22.2, ICD10: Z3A.34 - URINE OB DIP B/O Krys Kulkarni MD [facility]06-05-2025 Miscellaneous Notes* Quick Notes - Krys Kulkarni [...] in in third trimester ([facility]) - ICD9: 648.03, 250.00, ICD10: O24.113 (primary diagnosis) - Controlled - URINE OB DIP B/O 2. pruritus, third trimester ([facility]) - ICD9: 646.83, 698.9, ICD10: O99.713, L29.9 Labs normal - URINE OB DIP B/O 3. History of pre-eclampsia - ICD9: V13.29, ICD10: Z87.59 TruBP normal - URINE OB DIP B/O 4. H/O macrosomia in in prior , currently ([facility]) - ICD9: V23.49, ICD10: O09.299 - URINE OB DIP B/O 5. 34 weeks gestation of ([facility]) - ICD9: V22.2, ICD10: Z3A.34 - URINE OB DIP B/O Krys Kulkarni MD documented in this encounterPremier Health [facility] Instructions* Patient Instructions* Renetta Petersen MA - 11/11/2024 9:11 AM EDT SEQUENTIAL SCREENINGS The [facility] offers sequential screenings for women who are [...] testing. It will require an appointment withour hydroelectric production technician. This is not an ultrasound performed [...] the above symptoms, contact our office at [phone] and ask to speak with anurse. After hours, you can call doctors registry at [phone] OR call [facility] at [phone] ask to have the doctor data migration lead paged. If you consider this an emergency, dial 9-1-5 or go to your nearest emergency department. NEED HELP? Are you dealing with a violent or abusive relationship? Are you a victim of rape or sexual assult? Call [facility] ([place]) 24 hour Crisis Hotline: 515.386.9179 or 222-700-6158. MANUAL Your Guide to a Healthy manual is now on-line. Visit [email or web address] to download your free copy documented in this encounterPremier Health [facility]06-02-2025 Note Indication Evaluation of well-being Maternal obesity, [...] movements 2: tone 2: Amniotic fluid volume 8 Biophysical profile score Anatomy sex: female. Performed By: Idania Snyder, BRICECT, RVT Read By: Pooja Latham M.D.MATERNAL [id number] History of Present illness Narrative* Krys Kulkarni MD - 11/05/2024 11:22 AM EDT NST SUMMARY PROVIDER ASSESSMENT AND INTERPRETATION Indications for NST: Diabetes - Insulin Controlled Baseline: 140 Variability: Moderate Accelerations: Present 15 X 15 Decelerations: None Interpretation: Reactive SIGNATURE: Krys Kulkarni MD documented in this encounterPremier Health [facility]05-30-2025 [facility]05-30-2025 Progress note* Quick Notes - Krys [...] 33 weeks gestation of ([facility]) - ICD9: V22.2, ICD10: Z3A.33 (primary diagnosis) PTL precautions - URINE OB DIP B/O 2. pruritus Shemar acids and LFTs ordered - URINE OB DIP B/O 3. Pre-existing type 2 diabetes mellitus in in third trimester ([facility]) - ICD9: 648.03, 250.00, ICD10: O24.113 Sees endocrine for management. Stable this week Optho complete and f/u in Jan NST and BPP weekly - URINE OB DIP B/O 4. Supervision of high risk in third trimester ([facility]) - ICD9: V23.9, ICD10: O09.93 - URINE OB DIP B/O Krys Kulkarni MD [facility]05-30-2025 Miscellaneous Notes* Quick Notes - Krys Kulkarni [...] 33 weeks gestation of ([facility]) - ICD9: V22.2, ICD10: Z3A.33 (primary diagnosis) PTL precautions - URINE OB DIP B/O 2. pruritus Shemar acids and LFTs ordered - URINE OB DIP B/O 3. Pre-existing type 2 diabetes mellitus in in third trimester ([facility]) - ICD9: 648.03, 250.00, ICD10: O24.113 Sees endocrine for management. Stable this week Optho complete and f/u in Jan NST and BPP weekly - URINE OB DIP B/O 4. Supervision of high risk in third trimester ([facility]) - ICD9: V23.9, ICD10: O09.93 - URINE OB DIP B/O Krys Kulkarni MD documented in this encounterPrem[facility] Health [facility]05-30-[facility] Instructions* Patient Instructions* Rebeca Vazquez MA - 11/05/2024 10:18 AM EDT SEQUENTIAL SCREENINGS The [facility] offers sequential screenings for women who are [...] testing. It will require an appointment withour hydroelectric production technician. This is not an ultrasound performed [...] the above symptoms, contact our office at [phone] and ask to speak with anurse. After hours, you can call doctors registry at [phone] OR call [facility] at [phone] ask to have the doctor data migration lead paged. If you consider this an emergency, dial 9-1-1 or go to your nearest emergency department. NEED HELP? Are you dealing with a violent or abusive relationship? Are you a victim of rape or sexual assult? Call [facility] ([facility] 24 hour Crisis Hotline: 953.184.3317 or 801-930-7995. MANUAL Your Guide to a Healthy manual is now on-line. Visit [email or web address] to download your free copy documented in this encounterPremier Health [facility]05-29-2025 Miscellaneous Notes* Forensic/STEPHY/Alicia Greenwood RN - 11/04/2024 1:00 PM EDTSumtee: Gardenia Wheeler Consult Note 11/04/24 [facility] [place] [facility] Completed by: Alicia Pitts RN Date: November 04, 2024 GardeniaIanLiam Resource Time: 2.5 hours Consult Code:A and D Consult Type: In-person outpatient Safety Concerns: No Melissa Byrne [phone] Preferred Name: Hoda OB Provider: Piper Julian Estimated Date of Delivery: 12/18/24 Designated Support People: fob- Alexi and mother- Anabella Labor Plan at time of Consult: Vaginal, Medicated, Breast milk Primary Themes During Consult: Relationship with partner, family, phone circuit operator, caregiver Fear of unknown Primary Triggers: Restriction to bed Pain medication tradeoffs Behavior of staff toward you experience in hospital experience after discharge Primary Concern: Hoda experienced a hemorrhage following her first but she never felt as if "things were out of control or abnormal". She states that she was "young, uneducated" and that she "didn't ask questions". Hoda dropped her daughter when she dozed [...] 2 years. She states that she feels "mostly safe" in this relationship, but that if she was not expecting, she would "not be with him". Labor & Strategies: Hoda is planning on an epidural, but she would like to delay the placement for longer than she did "the first time". Hoda would like to utilize hydrotherapy, the birthing ball ad nitrous oxide prior to getting an epidural. Hoda would like hr nursing staff to "closely monitor" her cervical progress. Hoda would like to avoid internal monitoring if possible. Hoda would l dora to push in different positions w/ assistance- she would like to use a birthing bar and try on all fours. Hoda would like positive, encouraging coaching from her nurses. Hoda plans on utilizing perineal massage to help reduce her risk of a "major" tear, but she would like her team to "slowly" guide her daughter's head out so she doesn't "bust out" like her first. Hoda is interested in [...] . She sees atherapist and a psychiatrist "regularly". She understands who and when to call if she feels she needs immediate assistance. Feeding Plan Details: Hoda would like to breastfeed. She was unable to nurse her first daughter, but it is a goal of hers to nurse this one, even if it's just for "a few weeks". Safety/Support/Social Work: Hoda does not have any friends or family who live nearby or who are "immediately" available. She lives in a new apartment, and she knows 2 people in the building. Her mother lives 40 minutes away. Hoda does not work. She collects disability. She lives with Alexi, who works as a special needs child caregiver. The last week of the month is "very hard" for them. She is aware that social service is available to talk. documented in this encounterPremier Health [facility]05-29-2025 Progress note* Forensic/SANE/MPower - Alicia Pitts RN - 11/04/2024 1:00 PM EDTSummary: Gardenia Wheeler Consult Note 11/04/24 [facility] [place] [facility] Completed by: Alicia Pitts RN Date: November 04, 2024 [facility] Resource Time: 2.5 hours Consult Code:A and D Consult Type: In-person outpatient Safety Concerns: No Melissa Byrne [phone] Preferred Name: Hoda OB Provider: Piper Julian Estimated Date of Delivery: 12/18/24 Designated Support People: fob- Alexi and mother- Anabella Labor Plan at time of Consult: Vaginal, Medicated, Breast milk Primary Themes During Consult: Relationship with partner, family, phone circuit operator, caregiver Fear of unknown Primary Triggers: Restriction to bed Pain medication tradeoffs Behavior of staff toward you experience in hospital experience after discharge Primary Concern: Hoda experienced a hemorrhage following her first but she never felt as if "things were out of control or abnormal". She states that she was "young, uneducated" and that she "didn't ask questions". Hoda dropped her daughter when she dozed [...] 2 years. She states that she feels "mostly safe" in this relationship, but that if she was not expecting, she would "not be with him". Labor & Strategies: Hoda is planning on an epidural, but she would like to delay the placement for longer than she did "the first time". Hoda would like to utilize hydrotherapy, the birthing ball ad nitrous oxide prior to getting an epidural. Hoda would like hr nursing staff to "closely monitor" her cervical progress. Hoda would like to avoid internal monitoring if possible. Hoda would l dora to push in different positions w/ assistance- she would like to use a birthing bar and try on all fours. Hoda would like positive, encouraging coaching from her nurses. Hoda plans on utilizing perineal massage to help reduce her risk of a "major" tear, but she would like her team to "slowly" guide her daughter's head out so she doesn't "bust out" like her first. Hoda is interested in [...] . She sees atherapist and a psychiatrist "regularly". She understands who and when to call if she feels she needs immediate assistance. Feeding Plan Details: Hoda would like to breastfeed. She was unable to nurse her first daughter, but it is a goal of hers to nurse this one, even if it's just for "a few weeks". Safety/Support/Social Work: Hoda does not have any friends or family who live nearby or who are "immediately" available. She lives in a new apartment, and she knows 2 people in the building. Her mother lives 40 minutes away. Hoda does not work. She collects disability. She lives with Alexi, who works as a special needs child caregiver. The last week of the month is "very hard" for them. She is aware that social service is available to talk. [facility]05-29-2025 History of Present illness Narrative* Carrie Larsen, RD - 11/04/2024 11:00 AM EDT [facility] Medical Nutrition Therapy Follow up Visit Type: In-Person (Face to Face): Lydia Alonzo [facility] Nutritional Visit: MNT/DIABETES Medical Diagnosis: [...] cheesy rice Snacks: Rarely, unless she is "going low" - will have 1/2 cup juice -has [...] 191 lbs Pre- BMI: 34.9 TW lbs [place] [facility] Weight Gain Recommendations for : [...] insulin as needed -she notices higher BG "mid morning and around lunch time" 11/04/24: -she is using a glucose meter and checking BG 4 times/day, log present and reviewed Fasting- 80-90 mg/dL 2 hour post meal - 108 -119 mg/dL -she is taking DM related medications as prescribed, reports no missed doses -receives [facility] benefits -lost upper dentures with no [...] TABLETS BY MOUTH EVERY DAYAT BEDTIME lancets (RMDMgroupTOUCH DELICA PLUS LANCET) 30 gauge Use with blood glucose test four times a day. Insulin Dep? Yes insulin lispro (HUMALOG KWIKPEN INSULIN) 100 unit/mL 23 -23 - 26 units prior to each meal respectively + scale (upto 100 units/day) blood sugar diagnostic ([place] GroupUCH VERIO TEST STRIPS) test strip Use as instructed - TEST BLOOD SUGARS 4 TIMES DAILY Blood-Glucose Meter (RMDMgroupTOUCH VERIO FLEX METER) Use to check blood glucose 4 times daily. busPIRone (BUSPAR) 15 mg tablet albuterol HFA (PROVENTIL HFA, VENTOLIN HFA) 90 mcg/actuation inhaler Inhale 2 Puffs as instructed every 6 hours as needed. VIT 10-IRON FUM-FOLIC ORAL Take by mouth. Insulin [place], Disposable, (BD ULTRAFINE III MINI PEN) 31 gauge x 3/16" 4 times/day FLUoxetine (PROZAC) 40 mg capsule Take 20 mg by mouth. albuterol HFA (PROVENTIL HFA, VENTOLIN HFA) 90 mcg/actuation inhaler Inhale 2 Puffs as instructed. No current facility-administered medications on file as of 11/04/2024. Labs: Lab Results Component Value Date HBA1C 5.2 09/20/2024 HBA1C 7.9 06/07/2024 HBA1C 10.5 05/03/2024 HBA1C 6.6 12/16/2016 No results found for: "CHOL", "HDL", "LDL", "TG" Glucose (mg/dL) Date Value 10/25/2024 103 Potassium [...] Larsen M.S., RDN, LD documented in this encounterPremier Health [facility]05-29-2025 NoteL[facility]05-29-2025 History of Present illness Narrative* Kelsy [...] during that - had macrosomia, delivered in [place]. She was initially diagnosed with type 2 [...] Take an + additional 5 units with "Higher carb" meals (camilo with * if/when you take the extra insulin so I can see if it is working or not). take 1/2 of the Humalog if you don't feel like you're going to eat enough or eat a lower carb meal.Camilo with "0" if you take less insulin. Fasting- 80-90 [...] HISTORY Diagnosis Date Asthma ([facility]) Bipolar H/O macrosomia in infant in prior , currently ([facility]) 05/07/2024 Herpes simplex type 2 (HSV-2) infection affecting , antepartum, unspecified trimester ([facility]) 04/19/2024 Hyperlipidemia LGA (large for gestational age) infant ([facility]) 12/23/2016 12/23/16 - >95% Polyhydramnios ([facility]) 01/01/2017 Pre-existing type 2 diabetes mellitus in in first trimester ([facility]) 06/15/2024 First trimester Hgb A1c 10.5%, now follows with Dr. Guillermo Recurrent UTI Type 2 diabetes mellitus ([facility]) PAST SURGICAL HISTORY Procedure Laterality Date CHOLECYSTECTOMY [...] EVERY DAYAT BEDTIME 180 tablet 1 lancets (RMDMgroupTOUCH DELICA PLUS LANCET) 30 gauge Use with blood glucose test four times a day. Insulin Dep? Yes 100 Each 11 insulin lispro (HUMALOG KWIKPEN INSULIN) 100 unit/mL 23 -23 - 26 units prior to each meal respectively + scale (upto 100 units/day) 45 mL 11 blood sugar diagnostic ([place] GroupUCH VERIO TEST STRIPS) test strip Use as instructed - TEST BLOOD SUGARS 4 TIMES DAILY 150 Each 11 Blood-Glucose Meter (TMS VERIO FLEX METER) Use to check blood glucose 4 times daily. 1 Each 0 busPIRone (BUSPAR) 15 mg tablet albuterol HFA (PROVENTIL HFA, VENTOLIN HFA) 90 mcg/actuation inhaler Inhale 2 Puffs as instructed every 6 hours as needed. VIT 10-IRON FUM-FOLIC ORAL Take by mouth. Insulin [place], Disposable, (BD ULTRAFINE III MINI PEN) 31 gauge x 3/16" 4 times/day 150 Each 5 FLUoxetine (PROZAC) [...] forward me your blood glucose data weekly ([email or web address]) as you are doing for the duration of your . 3) continue current regimen as below: NPH 90 units at bedtime. Humalog 23 units prior to breakfast, 23 units prior to lunch, Humalog 26 units prior to dinner. Take an + additional 5 units with "Higher carb" meals (camilo with * if/when you take the extra insulin so I can see if it is working or not). take 1/2 of the Humalog if you don't feel like you're going to eat enough or eat a lower carb meal.Camilo with "0" if you take less insulin. 4) after delivery- reduce insulin as follows: NPH 20 units at bedtime Humalog 8 units prior to meals (+5 units with "higher carb" meals) 5) see me for post f/u Jan 20 (virtual or in person) 3. ophthalmology- she is following with ophthalmology- ? New DX of MARK cortes- she has f/u scheduled after delivery, in January. I spent a total of 30 minutes on the date of the service which included preparing to see the patient, [id number] patient care, completing clinical documentation, obtaining and/or reviewing separately obtained history, performing a medically appropriate examination, counseling and educating the pat ient/family/caregiver, and ordering medications, tests, or procedures. Kelsy Guillermo DO documented in this encounterPrem[facility] Health [facility]05-29-2025 NoteL[facility]05-29-2025 Instructions* Patient Instructions* Kelsy Guillermo DO [...] Take an + additional 5 units with "Higher carb" meals (camilo with * if/when you take the extra insulin so I can see if it is working or not). take 1/2 of the Humalog if you don't feel like you're going to eat enough or eat a lower carb meal.Camilo with "0" if you take less insulin. 4) after delivery- reduce insulin as follows: POST REGIMEN: NPH 20 units at bedtime Humalog 8 units prior to meals (+5 units with "higher carb" meals) 5) see me for post f/u Jan 20 (virtual or in person) documented in this encounterPremier Health [facility]05-28-2025 Telephone encounter Note * Telephone Encounter - Charlette Starkey RN - 11/03/2024 10:31 AM EDT Order signed and faxed. Charlette Starkey RN [facility]05-28-2025 Miscellaneous Notes* Telephone Encounter - Charlette Starkey RN - 11/03/2024 10:31 AM EDT Order signed and faxed. Charlette Starkey RN * Telephone Encounter - Charlette Starkey RN - 10/29/2024 2:44 PM EDT Breast pump order received from [facility] [employer]. To RR to sign. Charlette Starkey RN documented in this encounterPremier Health [facility]05-28-2025 Telephone encounter Note * Telephone Encounter - Piper Julian MD - 11/03/2024 10:13 AM EDT noted, we will encourage f/u w/ optho. Piper Julian MD [facility]05-28-2025 Miscellaneous Notes* Telephone Encounter - Piper Julian MD - 11/03/2024 10:13 AM EDT noted, we will encourage f/u w/ optho. Piper Julian MD * Telephone Encounter - Brenda Lares RN - 11/02/2024 11:30 AM EDT I called patient's retinal specialist and spoke with nurse Sarah, in Dr Holloway's office at [facility] ph [phone] @ the request of Dr Pooja Latham. [...] inform doctor. Letter has been scanned into [employer]. documented in this encounterPremier Health [facility]05-27-2025 Telephone encounter Note * Telephone Encounter - Brenda Lares RN - 11/02/2024 11:30 AM EDT I called patient's retinal specialist and spoke with nurse Smith, in Dr Holloway's office at [facility] ph [phone] @ the request of Dr Pooja Latham. [...] inform doctor. Letter has been scanned into [employer]. [facility]05-27-2025 NoteHNO ID: [id number] Author: WILLIAM GRAMAJO MD Service: ? Author Type: Physician Type: Progress Notes Filed: 11/02/2024 11:32 Note Text: [facility] History of Present illness Narrative* William Gramajo MD - 11/02/2024 11:30 AM EDT N/a documented in this encounterPremier Health [facility]05-27-2025 Progress note* Quick Notes - William Gramajo MD - 11/02/2024 11:02 AM EDT KJ - S: Hoda denies LOF, contractions or vaginal bleeding. O: 33w3d, see flow sheet SENSITIVE EXAM: Sensitive exam not performed. A/P: Assessment & Plan Pre-existing type 2 diabetes mellitus in in third trimester ([facility]) Managed by . Patient reports overall good control. Orders: URINE OB DIP B/O History of pre-eclampsia Continue aspirin Orders: URINE OB DIP B/O H/O macrosomia in infant in prior , currently ([facility]) EFW on growth US shows AGA and expected to be smaller than 1st baby. Growth US with MFM today. Orders: URINE OB DIP B/O 33 weeks gestation of ([facility]) Orders: URINE OB DIP B/O Request for sterilization Title 19 papers signed today Herpes simplex type 2 (HSV-2) infection affecting , antepartum, unspecified trimester ([facility]) On acyclovir prophylaxis William Gramajo MD [facility]05-27-2025 Miscellaneous Notes* Quick Notes - William Gramajo MD - 11/02/2024 11:02 AM EDT KJ - S: Hoda denies LOF, contractions or vaginal bleeding. O: 33w3d, see flow sheet SENSITIVE EXAM: Sensitive exam not performed. A/P: Assessment & Plan Pre-existing type 2 diabetes mellitus in in third trimester ([facility]) Managed by . Patient reports overall good control. Orders: URINE OB DIP B/O History of pre-eclampsia Continue aspirin Orders: URINE OB DIP B/O H/O macrosomia in in prior , currently ([facility]) EFW on growth US shows AGA and expected to be smaller than 1st baby. Growth US with MFM today. Orders: URINE OB DIP B/O 33 weeks gestation of ([facility]) Orders: URINE OB DIP B/O Request for sterilization Title 19 papers signed today Herpes simplex type 2 (HSV-2) infection affecting , antepartum, unspecified trimester ([facility]) On acyclovir prophylaxis William Gramajo MD documented in this encounterPremier Health [facility]05-27-2025 Instructions* Patient Instructions* Renetta Petersen MA - 11/02/2024 10:43 AM EDT SEQUENTIAL SCREENINGS The [facility] offers sequential screenings for women who are [...] testing. It will require an appointment withour hydroelectric production technician. This is not an ultrasound performed [...] the above symptoms, contact our office at [phone] and ask to speak with anurse. After hours, you can call doctors registry at [phone] OR call [facility] at [phone] ask to have the doctor data migration lead paged. If you consider this an emergency, dial 9--6 or go to your nearest emergency department. NEED HELP? Are you dealing with a violent or abusive relationship? Are you a victim of rape or sexual assult? Call [facility] ([place]) 24 hour Crisis Hotline: 608.424.2800 or 122-740-5587. MANUAL Your Guide to a Healthy manual is now on-line. Visit [email or web address] to download your free copy documented in this encounterPremier Health [facility]05-27-2025 Note Indication Evaluation of well-being Maternal obesity, [...] RDMS, RVT Read By: Pooja Latham M.D.MATERNAL [id number] Telephone encounter Note* Telephone Encounter - Charlette Starkey RN - 10/29/2024 2:44 PM EDT Breast pump order received from [facility]. To RR to sign. Charlette Starkey RN [facility]05-19-2025 Progress note* Quick Notes - Piper Julian [...] acyclovir for HSV prophylaxis Piper Julian M.D. [facility]05-19-2025 Miscellaneous Notes* Quick Notes - Piper Julian [...] toconfirm this cont acyclovir for HSV prophylaxis Piepr Julian M.D. documented in this encounterPremier Health [facility]05-19-2025 NoteL[facility]05-19-2025 History of Present illness Narrative* Piper [...] SIGNATURE: Piper Julian MD documented in this encounterPremier Health [facility]05-19-2025 Instructions* Patient Instructions* Renetta Petersen MA - 10/25/2024 9:26 AM EDT SEQUENTIAL SCREENINGS The [facility] offers sequential screenings for women who are [...] testing. It will require an appointment withour hydroelectric production technician. This is not an ultrasound performed [...] the above symptoms, contact our office at [phone] and ask to speak with anurse. After hours, you can call doctors registry at [phone] OR call [facility] at [phone] ask to have the doctor data migration lead paged. If you consider this an emergency, dial 9--1 or go to your nearest emergency department. NEED HELP? Are you dealing with a violent or abusive relationship? Are you a victim of rape or sexual assult? Call [facility] ([place]) 24 hour Crisis Hotline: 670.322.3835 or 200-540-8561. MANUAL Your Guide to a Healthy manual is now on-line. Visit [email or web address] to download your free copy documented in this encounterPremier Health [facility]05-13-[facility] Telephone encounter Note * Telephone Encounter - [...] Take an + additional 5 units with "Higher carb" meals (camilo with * if/when you take the extra insulin so I can see if it is working or not). take 1/2 of the Humalog if you don't feel like you're going to eat enough or eat a lower carb meal.Camilo with "0" if you take less insulin. Will review again next week- thanks! KB [facility]05-13-2025 Miscellaneous Notes* Telephone Encounter - Kelsy Guillermo [...] Take an + additional 5 units with "Higher carb" meals (camilo with * if/when you take the extra insulin so I can see if it is working or not). take 1/2 of the Humalog if you don't feel like you're going to eat enough or eat a lower carb meal.Camilo with "0" if you take less insulin. Will review again next week- thanks! KB documented in this encounterPremier Health [facility]05-12-2025 Progress note* Quick Notes - Whit Morton MD - 10/18/2024 4:06 PM EDT DM-Pt doing well. Denies vaginal Bleeding, Leaking fluid, or regular Contractions. Pt reports good movement Physical Exam: Gen: female in no apparent distress Abd: soft, Gravid. Non tender to palpation. See flow sheet @ 31 weeks Assessment & Plan Supervision of high risk in third trimester ([facility]) Orders: URINE OB DIP B/O Pre-existing type 2 diabetes mellitus in in third trimester ([facility]) Sees Endocrinology - states pretty well controlled no adjustment on Insulin per endocrinology last A1c 5.2 down from 7.9 Orders: URINE OB DIP B/O Herpes simplex type 2 (HSV-2) infection affecting , antepartum, unspecified trimester ([facility]) Taking acyclovir H/O macrosomia in in prior , currently ([facility]) Growth us scheduled History of pre-eclampsia Continue ASA 31 weeks gestation of ([facility]) Kick counts and labor reviewed NSTs and BPP scheduled Orders: URINE OB DIP B/O Whit Patel MD [facility]05-12-2025 Miscellaneous Notes* Quick Notes - Whit Morton MD - 10/18/2024 4:06 PM EDT DM-Pt doing well. Denies vaginal Bleeding, Leaking fluid, or regular Contractions. Pt reports good movement Physical Exam: Gen: female in no apparent distress Abd: soft, Gravid. Non tender to palpation. See flow sheet @ 31 weeks Assessment & Plan Supervision of high risk in third trimester ([facility]) Orders: URINE OB DIP B/O Pre-existing type 2 diabetes mellitus in in third trimester ([facility]) Sees Endocrinology - states pretty well controlled no adjustment on Insulin per endocrinology last A1c 5.2 down from 7.9 Orders: URINE OB DIP B/O Herpes simplex type 2 (HSV-2) infection affecting , antepartum, unspecified trimester ([facility]) Taking acyclovir H/O macrosomia in in prior , currently ([facility]) Growth us scheduled History of pre-eclampsia Continue ASA 31 weeks gestation of ([facility]) Kick counts and labor reviewed NSTs and BPP scheduled Orders: URINE OB DIP B/O Whit Patel MD documented in this encounterPremier Health [facility]05-12-2025 Instructions* Patient Instructions* Rebeca Vazquez MA - 10/18/2024 1:34 PM EDT SEQUENTIAL SCREENINGS The [facility] offers sequential screenings for women who are [...] testing. It will require an appointment withour hydroelectric production technician. This is not an ultrasound performed [...] the above symptoms, contact our office at [phone] and ask to speak with anurse. After hours, you can call doctors registry at [phone] OR call [facility] at [phone] ask to have the doctor data migration lead paged. If you consider this an emergency, dial 2-4-4 or go to your nearest emergency department. NEED HELP? Are you dealing with a violent or abusive relationship? Are you a victim of rape or sexual assult? Call [facility] ([facility] 24 hour Crisis Hotline: 273.415.9202 or 856-504-6591. MANUAL Your Guide to a Healthy manual is now on-line. Visit [email or web address] to download your free copy documented in this encounterPremier Health [facility]05-10-2025 History and physical note [facility] Medical Records Department [address] [place] [address] OB Triage Physician Note 10/16/24 1838 MR#: [id number] Acct: [id number] Name: MELISSA BYRNE Rep #:[id number] : 1995 29 From: Mariajose Nickerson CNM PCP: Dr. Jamari Byrne MD Status:REG CLI Y Location: EB058-1 HPI - General HPI Narrative MELISSA BYRNE, [...] Julian involved with plan of care 10/16/242000 CNM> Date _ Mariajose Nickerson CNM Cosignnoman Signature (if applicable): Date CC: JULIO Nickerson; Dr. Jamari Byrne MD ~ Signed [facility]05-10-2025 Evaluation note* Diagnosis Onset Date Resolution [...] diabetes mellitus acute December 16, 2024 7:10pm [facility] Work Phone: 1(126) 233-438705-06-2025 NoteHNO ID: [id number] Author: PAMELA HASKINS MD Service: ? Author Type: Physician Type: Progress Notes Filed: 10/13/2024 09:11 Note Text: Dr. Piper Julian NAME: Melissa Mckoy Chavez CLINIC Number.: [id number] Date of : 1995 Date of Visit: [...] We discussed these findings with Ms. Melissa Mckoy Chavez. In addition, the limitations [...] which included preparing to see the patient, [id number] patient care, completing clinical documentation, obtaining and/or reviewing separately obtained history, performing a medically appropriate examination, counseling and educating the patient/family/caregiver, ordering medications, tests, or procedures, communicating with other HCPs (not separately reported), independently interpreting results (not separately reported), communicating results to the patient/family/caregiver, and care coordination (not separately reported). Sincerely, Dr. Pamela Gutierrez [facility]05-06-2025 History of Present illness Narrative* Pamela Haskins MD - 10/12/2024 6:[address] Piper Julian NAME: Melissa J Raber CLINIC Number.: [id number] Date of : 1995 Date of Visit: [...] which included preparing to see the patient, [id number] patient care, completing clinical documentation, obtaining and/or reviewing separately obtained history, performing a medically appropriate examination, counseling and educating the pat ient/family/caregiver, ordering medications, tests, or procedures, communicating with other HCPs (not separately reported), independently interpreting results (not separately reported), communicatingresults to the patient/family/caregiver, and care coordination (not separately reported). Sincerely, Dr. Pamela Haskins documented in this encounterPremier Health [facility]05-02-2025 Telephone encounter Note * Telephone Encounter - [...] Take an + additional 5 units with "Higher carb" meals (camilo with * if/when you take the extra insulin so I can see if it is working or not). take 1/2 of the Humalog if you don't feel like you're going to eat enough or eat a lower carb meal.Camilo with "0" if you take less insulin. Will review again next week- thanks! KB [facility]05-02-2025 Miscellaneous Notes* Telephone Encounter - Kelsy Guillermo [...] Take an + additional 5 units with "Higher carb" meals (camilo with * if/when you take the extra insulin so I can see if it is working or not). take 1/2 of the Humalog if you don't feel like you're going to eat enough or eat a lower carb meal.Camilo with "0" if you take less insulin. Will review again next week- thanks! KB documented in this encounterPremier Health [facility]04-28-2025 Progress note* Quick Notes - Ppier Julian MD - 10/04/2024 11:11 AM EDT [...] 29 weeks gestation of ([facility]) Orders: ECG COMPLETE; Future NON-STRESS TEST; Standing PROTEIN / CREATININE RATIO; Future BACTERIAL CULTURE, URINE; Future Pre-existing type 2 diabetes mellitus in in third trimester ([facility]) Orders: ECG COMPLETE; Future NON-STRESS TEST; Standing PROTEIN / CREATININE RATIO; Future BACTERIAL CULTURE, URINE; Future Supervision of high risk in third trimester ([facility]) Orders: ECG COMPLETE; Future NON-STRESS TEST; Standing PROTEIN / CREATININE RATIO; Future BACTERIAL CULTURE, URINE; Future Chromosome abnormality ([facility]) see problem list patient declined testing for this neg. carrier and NIPT test this previous child had testing at [facility] Pre-existing type 2 diabetes mellitus in in first trimester ([facility]) follows w/ endocrine, hgba1 c controlled dm retinopathy - has f/u w/ optho ecg ordered/encouraged check prot/creat ratio today 28 week labs done Tobacco smoking complicating in first trimester ([facility]) decreased to 2 cig a day, encouraged to quit, support offered History of recurrent UTI (urinary tract infection) recheck culture today 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, 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, unspecifiedwhether terminal superintendent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 (HCC) f/u optho as scheduled Herpes simplex type 2 (HSV-2) infection affecting , antepartum, unspecified trimester ([facility]) prophylaxis ordered, no outbreaks recently taking abx for BV on PNV and ASA start nsts at 32 weeks wait for MFM to read US repeat US in 4 weeks tdap today Medical Decision Making: Problems: Moderate: 1+ chronic illnesses with change Data: Unique test(s) ordered: 3+ Medical Decision Making Level: 4 - Moderate Piper Julian M.D. [facility]04-28-2025 Miscellaneous Notes* Quick Notes - Piper Julian [...] 29 weeks gestation of ([facility]) Orders: ECG COMPLETE; Future NON-STRESS TEST; Standing PROTEIN / CREATININE RATIO; Future BACTERIAL CULTURE, URINE; Future Pre-existing type 2 diabetes mellitus in in third trimester ([facility]) Orders: ECG COMPLETE; Future NON-STRESS TEST; Standing PROTEIN / CREATININE RATIO; Future BACTERIAL CULTURE, URINE; Future Supervision of high risk in third trimester ([facility]) Orders: ECG COMPLETE; Future NON-STRESS TEST; Standing PROTEIN / CREATININE RATIO; Future BACTERIAL CULTURE, URINE; Future Chromosome abnormality ([facility]) see problem list patient declined testing for this neg. carrier and NIPT test this previous child had testing at [facility] Pre-existing type 2 diabetes mellitus in in first trimester ([facility]) follows w/ endocrine, hgba1 c controlled dm retinopathy - has f/u w/ optho ecg ordered/encouraged check prot/creat ratio today 28 week labs done Tobacco smoking complicating in first trimester ([facility]) decreased to 2 cig a day, encouraged to quit, support offered History of recurrent UTI (urinary tract infection) recheck culture today 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, 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, unspecifiedwhether alf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 ([facility]) f/u optho as scheduled Herpes simplex type 2 (HSV-2) infection affecting , antepartum, unspecified trimester ([facility]) prophylaxis ordered, no outbreaks recently taking abx for BV on PNV and ASA start nsts at 32 weeks wait for MFM to read US repeat US in 4 weeks tdap today Medical Decision Making: Problems: Moderate: 1+ chronic illnesses with change Data: Unique test(s) ordered: 3+ Medical Decision Making Level: 4 - Moderate Piper Julian M.D. documented in this encounterPremier Health [facility]04-28-2025 Instructions* Patient Instructions* Teri Jack MA - 10/04/2024 11:10 AM EDT SEQUENTIAL SCREENINGS The [facility] offers sequential screenings for women who are [...] testing. It will require an appointment withour hydroelectric production technician. This is not an ultrasound performed [...] the above symptoms, contact our office at [phone] and ask to speak with anurse. After hours, you can call doctors registry at [phone] OR call [facility] at [phone] ask to have the doctor data migration lead paged. If you consider this an emergency, dial 9-1-2 or go to your nearest emergency department. NEED HELP? Are you dealing with a violent or abusive relationship? Are you a victim of rape or sexual assult? Call [facility] ([place]) 24 hour Crisis Hotline: 215.891.8790 or 243-496-9812. MANUAL Your Guide to a Healthy manual is now on-line. Visit [email or web address] to download your free copy documented in this encounterPremier Health [facility]04-21-2025 Telephone encounter Note * Telephone Encounter - Juana Terrazas RN - 09/27/2024 4:43 PM EDT FunCaptchahart message sent to Pt and Pt read on 09/27/24. Juana Terrazas RN [facility]04-21-2025 Miscellaneous Notes* Telephone Encounter - Juana Terrazas [...] absence. Juana Terrazas RN documented in this encounterPremier Health [facility]04-21-2025 Telephone encounter Note * Telephone Encounter - Krys Kulkarni MD - 09/27/2024 1:43 PM EDT Rx sent [facility]04-21-2025 Telephone encounter Note* Telephone Encounter - Juana [...] review in LEE absence. Juana Terrazas RN [facility]04-18-2025 Evaluation note* Diagnosis Onset Date Resolution Status [...] , antepartum acute October 16, 2024 5:10pm [facility] Work Phone: 1(841) 843-525404-18-2025 Evaluation note* Diagnosis Onset Date Resolution Status Admit Date 27 weeks gestation of [facility] September 24, 2024 1:48pm Uterine irritability inactive Apri l 2024 1:48pm Asthma acute October 16, 2024 5:10pm Bipolar 1 disorder acute October 162024 5:10pm History of herpes genitalis acute October 16, 2024 5:10pm Obesity affecting acute October 16, 2024 5:10pm Type 2 diabetes mellitus affecting , antepartum acute October 16, 2024 5:10pm 31 weeks gestation of ina tive October 16, 2024 5:10pm Obesity affecting acute November 15, 2024 3:32pm 35 weeks gestation of [facility] November 15, 2024 3:32pm False labor inactive [...] , antepartum acute December 07, 2024 11:00am [facility] Work Phone: 1(929) 284-469804-18-2025 Evaluation note* Diagnosis Onset Date Resolution Status Admit Date 27 weeks gestation of [facility] September 24, 2024 1:48pm Uterine irritability inactive [...] diabetes mellitus acute December 16, 2024 7:10pm [facility] Work Phone: 1(515) 692-709804-18-2025 Evaluation note* Diagnosis Onset Date Resolution Status Admit Date 27 weeks gestation of [facility] ti[facility] 24, 2024 1:48pm Uterine irritability inactive Apri l 2024 1:48pm Asthma acute October 16, 2024 5:10pm Bipolar 1 disorder acute October 162024 5:10pm History of herpes genitalis acute October 16, 2024 5:10pm Type 2 diabetes mellitus affecting , antepartum acute October 16, 2024 5:10pm Obesity affecting resolved October 16, 2024 5:10pm 31 weeks gestation of inac tiOctober 16, 2024 5:10pm Obesity affecting resolved [...] diabetes mellitus acute December 16, 2024 7:10pm [facility] Work Phone: 1(835) 907-909404-18-2025 Telephone encounter Note* Telephone Encounter - Kelsy [...] Take an + additional 5 units with "Higher carb" meals (camilo with * if/when you take the extra insulin so I can see if it is working or not). take 1/2 of the Humalog if you don't feel like you're going to eat enough or eat a lower carb meal.Camilo with "0" if you take less insulin. Will review again next week- thanks! KB [facility]04-18-2025 Miscellaneous Notes* Telephone Encounter - Kelsy Guillermo [...] Take an + additional 5 units with "Higher carb" meals (camilo with * if/when you take the extra insulin so I can see if it is working or not). take 1/2 of the Humalog if you don't feel like you're going to eat enough or eat a lower carb meal.Camilo with "0" if you take less insulin. Will review again next week- thanks! KB documented in this encounterPremier Health [facility]04-18-2025 [facility]04-[facility] History of Present illness Narrative* Leonie [...] discussed with the Patient or Patient's Authorized Loan Documents Closer. Asapplicable, any other physician, advance practice provider, medical student, or other health professional student that will be observing or involved in the sensitive examination for educational or training purposes was discussed with the Patient or Authorized Loan Documents Closer. The Patient or Authorized Loan Documents Closer has agreed to proceed with the sensitive [...] scheduled Leonie Waldron APRN.CNM documented in this encounterPremier Health [facility]04-18-2025 Telephone encounter Note * Telephone Encounter - Faina Levin MA - 09/24/2024 8:44 AM EDT OneTouch test strips were sent to [facility], patient requesting [facility]. Sent patient mychart message to contact [facility] to fill at that location. [facility]04-18-2025 Miscellaneous Notes* Telephone Encounter - Faina Levin MA - 09/24/2024 8:44 AM EDT OneTouch test strips were sent to [facility], patient requesting [facility]. Sent patient mychart message to contact [facility] [place] to fill at that location. documented in this encounterPremier Health [facility]04-18-2025 Instructions* Patient Instructions* Oniel Vinson MA - 09/24/2024 8:41 AM EDT SEQUENTIAL SCREENINGS The [facility] offers sequential screenings for women who are [...] testing. It will require an appointment withour hydroelectric production technician. This is not an ultrasound performed [...] the above symptoms, contact our office at [phone] and ask to speak with anurse. After hours, you can call doctors registry at [phone] OR call [facility] at [phone] ask to have the doctor data migration lead paged. If you consider this an emergency, dial 02-07-2 or go to your nearest emergency department. NEED HELP? Are you dealing with a violent or abusive relationship? Are you a victim of rape or sexual assult? Call [facility] ([place]) 24 hour Crisis Hotline: 534.629.7252 or 907-818-3434. MANUAL Your Guide to a Healthy manual is now on-line. Visit [email or web address] to download your free copy documented in this encounterPremier Health [facility]04-18-2025 NoteL[facility]04-18-2025 History of Present illness Narrative* Mary [...] vaginal leaking, bleeding, contractions. documented in this encounterPremier Health [facility]04-14-2025 Instructions* Patient Instructions* Kelsy Guillermo DO - 09/20/2024 1:47 PM EDT 1) check your sugars fasting (60-90 mg/dL) and 2 hours post meal (less than 120 mg/dL) 2) forward me your blood glucose data weekly ([email or web address]) as you are doing- 3) continue current regimen as you are doing: NPH 90 units at bedtime. Humalog 23 units prior to breakfast, 23 units prior to lunch, Humalog 26 units prior to dinner. Take an + additional 5 units with "Higher carb" meals (camilo with * if/when you take the extra insulin so I can see if it is working or not). take 1/2 of the Humalog if you don't feel like you're going to eat enough or eat a lower carb meal.Camilo with "0" if you take less insulin. 4) see me in 6 weeks for f/u (prefers in person). documented in this encounterPremier Health [facility]04-14-2025 History of Present illness Narrative* Kelsy Guillermo [...] Take an + additional 5 units with "Higher carb" meals (camilo with * if/when you take the extra insulin so I can see if it is working or not). take 1/2 of the Humalog if you don't feel like you're going to eat enough or eat a lower carb meal.Camilo with "0" if you take less insulin. Fasting- 80-90 [...] HISTORY Diagnosis Date Asthma ([facility]) Bipolar H/O macrosomia in infant in prior , currently ([facility]) 05/07/2024 Herpes simplex type 2 (HSV-2) infection affecting , antepartum, unspecified trimester ([facility]) 04/19/2024 Hyperlipidemia LGA (large for gestational age) ([facility]) 12/23/2016 12/23/16 - >95% Polyhydramnios ([facility]) 01/01/2017 Pre-existing type 2 diabetes mellitus in in first trimester ([facility]) 06/15/2024 First trimester Hgb A1c 10.5%, now [...] 90 units at bedtime 45mL 11 lancets (RMDMgroupTOUCH DELICA PLUS LANCET) 30 gauge Use with [...] 10-IRON FUM-FOLIC ORAL Take by mouth. Insulin [place], Disposable, (BD ULTRAFINE III MINI PEN) 31 gauge x 3/16" 4 times/day 150 Each 5 FLUoxetine (PROZAC) [...] Take an + additional 5 units with "Higher carb" meals (camilo with * if/when you take the extra insulin so I can see if it is working or not). take 1/2 of the Humalog if you don't feel like you're going to eat enough or eat a lower carb meal.Camilo with "0" if you take less insulin. 4) see me in 6 weeks for f/u (prefers in person). 3. ophthalmology- she is following with ophthalmology- ? New DX of . Janette is following up 10/18/24. I spent a total of 30 minutes on the date of the service which included preparing to see the patient, [id number] patient care, completing clinical documentation, obtaining and/or reviewing separately obtained history, performing a medically appropriate examination, counseling and educating the pat ient/family/caregiver, and ordering medications, tests, or procedures. Kelsy Guillermo DO documented in this encounterPremier Health [facility]04-14-2025 NoteL[facility]04-05-2025 Telephone encounter Note* Telephone Encounter - [...] Take an + additional 5 units with "Higher carb" meals (camilo with * if/when you take the extra insulin so I can see if it is working or not). take 1/2 of the Humalog if you don't feel like you're going to eat enough or eat a lower carb meal.Camilo with "0" if you take less insulin. Will review again next week- thanks! Dr Guillermo [facility]04-05-2025 Miscellaneous Notes* Telephone Encounter - Kelsy Guillermo [...] Take an + additional 5 units with "Higher carb" meals (camilo with * if/when you take the extra insulin so I can see if it is working or not). take 1/2 of the Humalog if you don't feel like you're going to eat enough or eat a lower carb meal.Camilo with "0" if you take less insulin. Will review again next week- thanks! Dr Guillermo documented in this encounterPremier Health [facility] Valley [facility] Tele[facility] encounter Note * Telephone Encounter - [...] Take an + additional 5 units with "Higher carb" meals (camilo with * if/when you take the extra insulin so I can see if it is working or not). take 1/2 of the Humalog if you don't feel like you're going to eat enough or eat a lower carb meal.Camilo with "0" if you take less insulin. Will review again next week- thanks KB [facility]04-01-2025 Miscellaneous Notes* Telephone Encounter - Kelsy Guillermo [...] Take an + additional 5 units with "Higher carb" meals (camilo with * if/when you take the extra insulin so I can see if it is working or not). take 1/2 of the Humalog if you don't feel like you're going to eat enough or eat a lower carb meal.Camilo with "0" if you take less insulin. Will review again next week- thanks NILSE documented in [facility] encounterPrem[facility] Telephone encounter Note * Telephone Encounter - Amelia Rose RN - 09/07/2024 12:46 PM EDT Spoke to patient and advised as below. Patient verbalized understanding. [facility]04-01-2025 Miscellaneous Notes* Telephone Encounter - Amelia Rose [...] calling: self Call patient at: at home [phone] (home) [phone] (cell) Was an appointment scheduled: No Closing statement: Results or non-symptom based questions: Thank you for calling [facility], your call will be returned within the next business day. Kim East documented in this encounterPrem[facility]04[facility] Telephone encounter Note * Telephone Encounter - Kelsy Guillermo DO - 09/07/2024 12:39 PM EDT Please advise her that she does not need to do glucose tolerance testing- she is already checking BG/taking insulin- so this test will not change her management KB [facility]04-01-2025 Telephone encounter Note* Telephone Encounter - Kim [...] calling: self Call patient at: at home [phone] (home) [phone] (cell) Was an appointment scheduled: No Closing statement: Results or non-symptom based questions: Thank you for calling [facility], your call will be returned within the next business day. Kim East [facility]04-01-2025 Progress note* Quick Notes - Ronaldo Rubio MD - 09/07/2024 11:15 AM EDT Patient at 25w 3 days, Type II Diabetic followed by endocrine. Reports FBSs ~ 90-95, and 2hrs Endocrine appointment 09/14. Denies ctrx, bleeding, lof labs today echo 5/6 rto 2 weeks Ronaldo Rubio MD [facility] Work Phone: 1(345) 788-595404-01-2025 Miscellaneous Notes* Quick Notes - Ronaldo Rubio MD - 09/07/2024 11:15 AM EDT Patient at 25w 3 days, Type II Diabetic followed by endocrine. Reports FBSs ~ 90-95, and 2hrs </= 120 (no book with her) Endocrine appointment 09/14. Denies ctrx, bleeding, lof labs today echo 10/12 rto 2 weeks Ronaldo Rubio MD documented in this encounterPrem[facility]04-[facility] Instructions* Patient Instructions* Sundeep Salvador MA - 09/07/2024 10:40 AM EDT SEQUENTIAL SCREENINGS The [facility] offers sequential screenings for women who are [...] testing. It will require an appointment withour hydroelectric production technician. This is not an ultrasound performed [...] the above symptoms, contact our office at [phone] and ask to speak with anurse. After hours, you can call doctors registry at [phone] OR call [facility] at [phone] ask to have the doctor data migration lead paged. If you consider this an emergency, dial 9-1-3 or go to your nearest emergency department. NEED HELP? Are you dealing with a violent or abusive relationship? Are you a victim of rape or sexual assult? Call [facility] ([place]) 24 hour Crisis Hotline: 204.579.3186 or 192-224-5192. MANUAL Your Guide to a Healthy manual is now on-line. Visit [email or web address] to download your free copy documented in this encounterPremier Health [facility]03-31-2025 History of Present illness Narrative* Jamari Byrne [...] to Dr Groves after Maternal med in [facility] every 4 week Quit smoking but down to 2 cig per day Stress living arrangements Will try to breast feeding Receives [facility] Bipolar depression Rx Dr Jackson 1 [...] for this visit: Exercise-induced asthma (HHS-HCC) - albuterol 90 mcg/actuation inhaler; INHALE 1 [...] if she stop smoking documented [facility] encounterOhio[facility] Work Phone: 1(166) 512-231803-31-2025 Telephone encounter Note* Telephone Encounter - Idania Murphy RN - 09/06/2024 9:48 AM EDT Request received from pharmacy for 90 day supply of aspirin Rx. Patient 25w2d, last seen in office on 08/10/24. Idania Murphy RN [facility]03-31-2025 Miscellaneous Notes* Telephone Encounter - Idania Murphy RN - 09/06/2024 9:48 AM EDT Request received from pharmacy for 90 day supply of aspirin Rx. Patient 25w2d, last seen in office on 08/10/24. Idania Murphy RN documented in this encounterPrem[facility]03-28-2025 Note Indication Follow-up evaluation to complete anatomic [...] 6 oz EFW by: Hadlock (HC-AC-FL) Extended Building Performance Specialist 6.2 mm CM 8.6 mm 97% Nicolaides [...] know sex: yes Performed By: Idania Snyder RDCT, RVT Read By: Mario Martin M.D.MATERNAL [id number] Telephone encounter Note* Telephone Encounter - Kesly Guillermo DO - 08/30/2024 8:42 AM EDT Reviewed BG data- responded as follows: Hi Hoda- I reviewed your BG data- Lets increase NPH to 90 units at bedtime. Continue Humalog 23 units prior to breakfast, 23 units prior to lunch, Humalog to 26 units prior to dinner. Take an + additional 5 units with "Higher carb" meals (camilo with * if/when you take the extra insulin so I can see if it is working or not). take 1/2 of the Humalog if you don't feel like you're going to eat enough or eat a lower carb meal.Camilo with "0" if you take less insulin. Will review again next week- thanks! KB [facility]03-24-2025 Miscellaneous Notes* Telephone Encounter - Kelsy Guillermo DO - 08/30/2024 8:42 AM EDT Reviewed BG data- responded as follows: Hi Hoda- I reviewed your BG data- Lets increase NPH to 90 units at bedtime. Continue Humalog 23 units prior to breakfast, 23 units prior to lunch, Humalog to 26 units prior to dinner. Take an + additional 5 units with "Higher carb" meals (camilo with * if/when you take the extra insulin so I can see if it is working or not). take 1/2 of the Humalog if you don't feel like you're going to eat enough or eat a lower carb meal.Camilo with "0" if you take less insulin. Will review again next week- thanks! KB documented in this encounterPrem[facility]03-19-2025 Telephone encounter Note * Telephone Encounter - Charlette Starkey RN - 08/25/2024 9:52 AM EDT Patient notified. She wanted to move u/s up sooner. Scheduled for 09/02. Patient also preferred to keep 4/ OB appointment as scheduled with RR. Charlette Starkey RN [facility]03-19-2025 Miscellaneous Notes* Telephone Encounter - Charlette Starkey RN - 08/25/2024 9:52 AM EDT Patient notified. She wanted to move u/s up sooner. Scheduled for 09/02. Patient also preferred to keep 4/1 OB appointment as scheduled with RR. Charlette [...] scheduled. Charlette Starkey RN documented in this encounterPremier Health [facility]03-19-2025 Telephone encounter Note * Telephone Encounter - Piper Julian MD - 08/25/2024 9:08 AM EDT Official readings have been normal as have growth. Keep next growth US, can be 3 weeks instead of 4but we don't need to do anything different at this time, conbt. q 4 week growth scans. RLR [facility] Work Phone: 1(803) 254-746003-19-2025 Telephone encounter Note* Telephone Encounter - Idania Murphy RN - 08/25/2024 9:04 AM EDT Patient called back this morning, can you address phone noted below? Idania Murphy RN [facility]03-18-2025 Telephone encounter Note* Telephone Encounter - Charlette Starkey RN - 08/24/2024 4:30 PM EDT 23w3d Patient had echo done today and pediatric cardiology provider noted the amniotic fluid volumeappeared subjectively low. Patient is questioning if she needs sooner appointment than her 09/07/24 f/u anatomy one that is scheduled. Charlette Starkey RN [facility]03-18-2025 NoteHNO ID: [id number] Author: PAMELA HASKINS MD Service: ? Author Type: Physician Type: Progress Notes Filed: 08/24/2024 14:20 Note Text: Dr. Pooja Julian NAME: Melissa Byrne CLINIC Number.: [id number] Date of : 1995 Date of Visit: [...] which included preparing to see the patient, [id number] patient care, completing clinical documentation, obtaining and/or reviewing separately obtained history, performing a medically appropriate examination, counseling and educating the patient/family/caregiver, ordering medications, tests, or procedures, communicating with other HCPs (not separately reported), independently interpreting results (not separately reported), and communicating results to the patient/family/caregiver. I also performed portions of the echocardiogram myself. Sincerely, Dr. [facility]18[facility] History of Present illness Narrative* Pamela Haskins MD - 08/24/2024 12:[address] Pooja Julian NAME: Melissa Byrne CLINIC Number.: [id number] Date of : 1995 Date of Visit: [...] which included preparing to see the patient, [id number] patient care, completing clinical documentation, obtaining and/or reviewing separately obtained history, performing a medically appropriate examination, counseling and educating the pat ient/family/caregiver, ordering medications, tests, or procedures, communicating with other HCPs (not separately reported), independently interpreting results (not separately reported), and communicating results to the patient/family/caregiver. I also performed portions of the echocardiogram myself. Sincerely, Dr. Pamela Haskins documented in this encounterPremier Health [facility]03-14-2025 Telephone encounter Note * Telephone Encounter - [...] Take an + additional 5 units with "Higher carb" meals (camilo with * if/when you take the extra insulin so I can see if it is working or not). take 1/2 of the Humalog if you don't feel like you're going to eat enough or eat a lower carb meal.Camilo with "0" if you take less insulin. Will review again next week- thanks! KB [facility]03-14-2025 Miscellaneous Notes* Telephone Encounter - Kelsy Guillermo [...] Take an + additional 5 units with "Higher carb" meals (camilo with * if/when you take the extra insulin so I can see if it is working or not). take 1/2 of the Humalog if you don't feel like you're going to eat enough or eat a lower carb meal.Camilo with "0" if you take less insulin. Will review again next week- thanks! KB documented in this encounterPrem[facility]03-12-2025 Telephone encounter Note * Telephone Encounter - Amelia Rose RN - 08/18/2024 10:50 AM EDT Spoke to [facility] pharmacy in [place]. They will transfer the prescription over. [facility]03-12-2025 Miscellaneous Notes* Telephone Encounter - Amelia Rose RN - 08/18/2024 10:50 AM EDT Spoke to [facility] pharmacy in [place]. They will transfer the prescription over. * Telephone Encounter - Krys Arellano - 08/18/2024 9:20 AM EDT Hoda is calling Kelsy Guillermo DO today to request that insulin lispro (HUMALOG KWIKPEN INSULIN) 100 unit/mL be transferred to another [facility], which is in [place]. [phone] Patient has been identified by name and birthdate. Duration of symptoms: N/A Person calling: self Call patient at: at home [phone] (home) [phone] (cell) Was an appointment scheduled: No Closing statement: Results or non-symptom based questions: Thank you for calling [facility], your call will be returned within the next business day. Krys East documented in this encounterPrem[facility] Health [facility]03-12-2025 Telephone encounter Note * Telephone Encounter - Krys Arellano - 08/18/2024 9:20 AM EDT Hoda is calling Kelsy Guillermo DO today to request that insulin lispro (HUMALOG KWIKPEN INSULIN) 100 unit/mL be transferred to another [facility], which is in [place]. [phone] Patient has been identified by name and birthdate. Duration of symptoms: N/A Person calling: self Call patient at: at home [phone] (home) [phone] (cell) Was an appointment scheduled: No Closing statement: Results or non-symptom based questions: Thank you for calling [facility], your call will be returned within the next business day. Krys East [facility]03-08-2025 Telephone encounter Note* Telephone Encounter - Kelsy [...] Take an + additional 5 units with "Higher carb" meals (camilo with * if/when you take the extra insulin so I can see if it is working or not). take 1/2 of the Humalog if you don't feel like you're going to eat enough or eat a lower carb meal.Camilo with "0" if you take less insulin. Will review again next week- thanks! Dr Guillermo [facility]03-08-2025 Miscellaneous Notes* Telephone Encounter - Kelsy Guillermo [...] Take an + additional 5 units with "Higher carb" meals (camilo with * if/when you take the extra insulin so I can see if it is working or not). take 1/2 of the Humalog if you don't feel like you're going to eat enough or eat a lower carb meal.Camilo with "0" if you take less insulin. Will review again next week- thanks! Dr Guillermo documented in this encounterPremier Health [facility]03-04-2025 Telephone encounter Note * Telephone Encounter - Faina Levin MA - 08/10/2024 4:55 PM EST Spoke to patient. Please see mychart encounter. [facility]03-04-2025 Miscellaneous Notes* Telephone Encounter - Faina Levin [...] phone by her side. documented in this encounterPremier Health [facility]03-04-2025 Telephone encounter Note * Telephone Encounter - Faina Levin MA - 08/10/2024 4:54 PM EST Spoke to patient and updated her. [facility]03-04-2025 Miscellaneous Notes* Telephone Encounter - Faina Levin [...] 4:02 PM EST Spoke to tech at [facility] and she stated that she [...] DIABETES 09/20/2024 1:40 PM ENDO [facility] LYDIA ALONZO TC EST KIMMY PATIENT 11/04/2024 11:00 AM ENDO DIAB ED [facility] ALT . Requested Prescriptions Pending [...] - 08/10/2024 1:49 PM EST Spoke to [facility] and they stated that onetouch prescription was transferred to another [facility] at other [facility] and she stated that they did [...] KIMMY GESTATIONAL DIABETES 09/20/2024 1:[address] [facility] EST KIMMY PATIENT 11/04/2024 11:00 AM [facility] . Requested Prescriptions Pending Prescriptions Disp [...] KIMMY GESTATIONAL DIABETES 09/20/2024 1:40 PM ENDO [facility] TC EST KIMMY PATIENT 11/04/2024 11:00 AM ENDO DIAB ED [facility] ALT . Requested Prescriptions Pending [...] needs scheduled appointment No documented in this encounterPremier Health [facility]03-04-2025 Note* Addendum Note - Kelsy Guillermo DO - 08/10/2024 4:35 PM ESTAddended by: KELSY GUILLERMO on: 08/10/2024 04:35 PM Modules accepted: Orders [facility]03-04-2025 Note* Addendum Note - Faina Levin MA - 08/10/2024 4:19 PM ESTAddended by: FAINA LEVIN on: 08/10/2024 04:19 PM Modules accepted: Orders [facility]03-04-2025 Telephone encounter Note* Telephone Encounter - Faina Levin MA - 08/10/2024 4:02 PM EST Spoke to kike at [facility] and she stated that she [...] DIABETES 09/20/2024 1:40 PM ENDO [facility] LYDIA RINGLING TC EST KIMMY PATIENT 11/04/2024 11:00 AM ENDO DIAB ED [facility] ALT . Requested Prescriptions Pending [...] pool. PSS NOTE: Patient needs scheduled appointment [facility]03-04-2025 Telephone encounter Note* Telephone Encounter - Amada Hills RN - 08/10/2024 3:10 PM EST Faina, the pt thinks she missed your call and wants to speak with you personally, will yo please call her back at the number listed in contacts, she will keep the phone by her side. [facility]03-04-2025 Telephone encounter Note* Telephone Encounter - Faina Levin MA - 08/10/2024 1:49 PM EST Spoke to [facility] [place] and they stated that onetouch prescription was transferred to another [facility] spoketo Rich at other [facility] and she stated that they did [...] until 2pm and will call back again. [facility]03-04-2025 Telephone encounter Note* Telephone Encounter - Demetra Morris - 08/10/2024 10:46 AM EST Patient called and states that a prior authorization needs to be done for her blood glucose testingsupplies. Please advise if PA can be started. [facility]03-04-2025 Progress note* Quick Notes - [...] up in 4 weeks. William Gramajo MD [facility]03-04-2025 Miscellaneous Notes* Quick Notes - William Gramajo [...] weeks. 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 Womack, a psychiatrist at [facility] in [place]. Taking Buspar and Prozac. Also sees a therapist Dr. Olmstead at the [facility]. She states that she is able and willing to go to the ER or call crisis if she experiences any suicidal thoughts Medical Decision Making: Problems: Moderate: 2+ stable chronic illnesses Risk: Moderate: Moderate risk from testing/treatment Medical Decision Making Level: 4 - Moderate Pooja Latham MD documented in this encounterPremier Health [facility]03-04-2025 Instructions* Patient Instructions* Sundeep Salvador MA - 08/10/2024 8:22 AM EST SEQUENTIAL SCREENINGS The [facility] offers sequential screenings for women who are [...] testing. It will require an appointment withour hydroelectric production technician. This is not an ultrasound performed [...] the above symptoms, contact our office at [phone] and ask to speak with anurse. After hours, you can call doctors registry at [phone] OR call [facility] at [phone] ask to have the doctor data migration lead paged. If you consider this an emergency, dial 7-7-2 or go to your nearest emergency department. NEED HELP? Are you dealing with a violent or abusive relationship? Are you a victim of rape or sexual assult? Call [facility] ([facility] 24 hour Crisis Hotline: 837.963.4009 or 350-434-9441. MANUAL Your Guide to a Healthy manual is now on-line. Visit [email or web address] to download your free copy documented in this encounterPremier Health [facility]03-02-2025 Telephone encounter Note * Telephone Encounter - [...] Take an + additional 5 units with "Higher carb" meals (camilo with * if/when you take the extra insulin so I can see if it is working or not). take 1/2 of the Humalog if you don't feel like you're going to eat enough or eat a lower carb meal.Camilo with "0" if you take less insulin. Will review again next week- thanks! Dr Guillermo [facility]03-02-2025 Miscellaneous Notes* Telephone Encounter - Kelsy Guillermo [...] Take an + additional 5 units with "Higher carb" meals (camilo with * if/when you take the extra insulin so I can see if it is working or not). take 1/2 of the Humalog if you don't feel like you're going to eat enough or eat a lower carb meal.Camilo with "0" if you take less insulin. Will review again next week- thanks! Dr Guillermo documented in this encounterPremier Health [facility]02-25-2025 Telephone encounter Note * Telephone Encounter - [...] EST KIMMY GESTATIONAL DIABETES 09/20/2024 1:40 PM [facility] EST KIMMY PATIENT 11/04/2024 11:00 AM ENDO DIAB ED [facility] ALT . Requested Prescriptions Pending [...] PSS NOTE: Patient needs scheduled appointment No [facility]02-25-2025 Telephone encounter Note* Telephone Encounter - Faina Levin MA - 08/03/2024 2:27 PM EST Requester: Patient Patients last Endocrinology visit occurred 07/26/24. Follow-up evaluation has been established Upcoming Endocrinology Appointments - Next 365 Days Visit Type Date Time Department EST KIMMY GESTATIONAL DIABETES 09/20/2024 1:40 PM [facility] EST KIMMY PATIENT 11/04/2024 11:00 AM ENDO DIAB ED [facility] ALTC . Requested Prescriptions Pending [...] PSS NOTE: Patient needs scheduled appointment No [facility]02-23-2025 Telephone encounter Note* Telephone Encounter [...] Take an + additional 5 units with "Higher carb" meals (camilo with * if/when you take the extra insulin so I can see if it is working or not). take 1/2 of the Humalog if you don't feel like you're going to eat enough or eat a lower carb meal.Camilo with "0" if you take less insulin Will review again next week- thanks! Dr Guillermo [facility]02-23-2025 Miscellaneous Notes* Telephone Encounter - Kelsy [...] Take an + additional 5 units with "Higher carb" meals (camilo with * if/when you take the extra insulin so I can see if it is working or not). take 1/2 of the Humalog if you don't feel like you're going to eat enough or eat a lower carb meal.Camilo with "0" if you take less insulin Will review again next week- thanks! Dr Guillermo documented in this encounterPremier Health [facility]02-17-2025 Instructions* Patient Instructions* Kelsy Guillermo DO - [...] Take an + additional 5 units with "Higher carb" meals (camilo with * if/when you take the extra insulin so I can see if it is working or not).n 5) take 1/2 of the Humalog if you don't feel like you're going to eat enough or eat a lower carb meal. Camilo with "0" if you take less insulin 6) see me in 7 weeks for f/u. documented in this encounterPremier Health [facility]02-17-2025 History of Present illness Narrative* Kelsy Guillermo [...] DM during thatpregnancy- had macrosomia, delivered in [place]. She was initially diagnosed with type 2 [...] prior to dinner +additional 5 units with "Higher carb" meals (camilo with * if/when you take [...] 10-IRON FUM-FOLIC ORAL Take by mouth. Insulin [place], Disposable, (BD ULTRAFINE III MINI PEN) 31 gauge x 3/16" 4 times/day 150 Each 5 Blood-Glucose Sensor [...] Take an + additional 5 units with "Higher carb" meals (camilo with * if/when you take the extra insulin so I can see if it is working or not). 5) take 1/2 of the Humalog if you don't feel like you're going to eat enough or eat a lower carb meal. Camilo with "0" if you take less insulin 6) see me in 7 weeks for f/u (prefers in person). 3. ophthalmology- she is following with ophthalmology- ? New DX of DR. Cox spent a total of 30 minutes on the date of the service which included preparing to see the patient, [id number]-mr-[id number] patient care, completing clinical documentation, obtaining and/or reviewing separately obtained history, performing a medically appropriate examination, counseling and educating the pat ient/family/caregiver, and ordering medications, tests, or procedures. Kelsy Guillermo DO documented in this encounterPremier Health [facility]02-17-2025 [facility]02-14-2025 NoteL[facility]02-14-2025 History of Present illness Narrative* William Gramajo MD - 07/23/2024 11:27 AM EST Melissa Byrne is a 29 year old female who presents for problem visit. HPI: Patient presents with concerns over possible herpes outbreak as had a little vulvar irritation. She denies complaints. 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 Insulin [place], Disposable, (BD ULTRAFINE III MINI PEN) 31 gauge x 3/16" 4 times/day Blood-Glucose Sensor (FREESTYLE ZOLTAN 3 [...] discussed with the Patient or Patient's Authorized Loan Documents Closer. As applicable, any other physician, advance practice provider, medical student, or other health professional student that will be observing or involved in the sensitive examination for educational or training purposes was discussed with the Patient or Authorized Loan Documents Closer. The Patient or Authorized Loan Documents Closer has agreed to proceed with the sensitive examination. (Sensitive examination includes inspection and/or palpation of the breasts, pelvis, prostate and anorectal regions). EXAM: LMP 03/13/2024 GENERAL: pleasant, female in no apparent distress PELVIC: external genitalia normal, normal Bartholin's glands, urethra, [place]'s glands, no vulvar lesions ASSESSMENT AND PLAN: Assessment & Plan Vulvar irritation Patient reassured or normal vulvar exam and no evidence of HSV outbreak. Follow up for care. Medical Decision Making: Problems: Low: Acute, uncomplicated illness or injury Risk: Low: Low risk from testing/treatment Medical Decision Making Level: 3 - Low William Gramajo MD documented in this encounterPremier Health [facility]02-11-2025 Telephone encounter Note * Telephone Encounter - [...] Take a + additional 5 units with "Higher carb" meals (camilo with * if/when you takethe extra insulin so I can see if it is working or not). Will review again next week- thanks! KB [facility]02-11-2025 Miscellaneous Notes* Telephone Encounter - Kelsy Guillermo [...] Take a + additional 5 units with "Higher carb" meals (camilo with * if/when you takethe extra insulin so I can see if it is working or not). Will review again next week- thanks! KB documented in this encounterPremier Health [facility]02-10-2025 Telephone encounter Note * Telephone Encounter - [...] Dept Phone 07/26/2024 2:00 PM KELSY GUILLERMO [facility] Lydia Dre [phone] 08/10/2024 8:00 AM I TECH 1 DRIER [facility] [place] [phone] 08/10/2024 8:00 AM DRIER M[facility] [place] [phone] 08/10/2024 9:00 AM POJOA LATHAM [place] [phone] 08/10/2024 9:10 AM WILLIAM GRAMAJO [place] [facility] [phone] 08/24/2024 1:00 PM PAMELA HASKINS [facility] [phone] 08/24/2024 1:00 PM ECHO LAB [facility] [phone] RX INSTRUCTIONS: Respond to pharmacy only and close encounter Carrie Mata MA [facility] Work Phone: [phone]) 602-415502-10-2025 Miscellaneous Notes* Telephone Encounter - Carrie Mata [...] Dept Phone 07/26/2024 2:00 PM KELSY GUILLERMO [facility] Lydia Erickson [phone] 08/10/2024 8:00 AM WHI TECH 1 DRIER M[facility] [place] [phone] 08/10/2024 8:00 AM DRIER [facility] [place] [phone] 08/10/2024 9:00 AM POOJA LATHAM [place] [facility] [phone] 08/10/2024 9:10 AM WILLIAM GRAMAJO [place] [facility] [phone] 08/24/2024 1:00 PM PAMELA HASKINS [facility] [phone] 08/24/2024 1:00 PM ECHO LAB [facility] [phone] RX INSTRUCTIONS: Respond to pharmacy only and close encounter Carrie Mata MA documented in this encounterPremier Health [facility]02-05-2025 Telephone encounter Note * Telephone Encounter - Kelsy Guillermo DO - 07/14/2024 10:37 AM EST Reviewed BG data- responded as follows: Good morning- sorry for the delay in response! I reviewed your BG data- these number are at/near goal for - continue your current regimen: NPH 70 units at bedtime. Humalog 18 units prior to each meal + additional 5 units with "Higher carb" meals (camilo with * if/when you take the extra insulin so I can see if it is working or not). Will review again next week- thanks! KB [facility]02-05-2025 Miscellaneous Notes* Telephone Encounter - Kelsy Guillermo DO - 07/14/2024 10:37 AM EST Reviewed BG data- responded as follows: Good morning- sorry for the delay in response! I reviewed your BG data- these number are at/near goal for - continue your current regimen: NPH 70 units at bedtime. Humalog 18 units prior to each meal + additional 5 units with "Higher carb" meals (camilo with * if/when you take the extra insulin so I can see if it is working or not). Will review again next week- thanks! 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 It will require an appointment withour hydroelectric production technician. This is not an ultrasound performed [...] the above symptoms, contact our office at [phone] and ask to speak with anurse. After hours, you can call doctors registry at [phone] OR call [facility] at [phone] ask to have the doctor data migration lead paged. If you consider this an emergency, dial 9-- or go to your nearest emergency department. NEED HELP? Are you dealing with a violent or abusive relationship? Are you a victim of rape or sexual assult? Call [facility] ([place]) 24 hour Crisis Hotline: 375.230.5414 or 740-921-9055. MANUAL Your Guide to a Healthy manual is now on-line. Visit [email or web address] to download your free copy documented in this encounterPremier Health [facility]01-26-2025 Telephone encounter Note * Telephone Encounter - [...] each meal + additional 5 units with "Higher carb" meals (camilo with * if/when you take the extra insulin so I can see if it is working or not). Will review again next week- thanks! KB [facility]01-26-2025 Miscellaneous Notes* Telephone Encounter - Kelsy Guillermo [...] each meal + additional 5 units with "Higher carb" meals (camilo with * if/when you take the extra insulin so I can see if it is working or not). Will review again next week- thanks! KB documented in this encounterPremier Health [facility]01-24-2025 Telephone encounter Note * Telephone Encounter - William Gramajo MD - 07/02/2024 10:08 AM EST Noted William Gramajo MD [facility] Work Phone: 1(170) 807-115501-24-2025 Miscellaneous Notes* Telephone Encounter - William Gramajo [...] furtheradvice. Charlette Starkey RN documented in this encounterPremier Health [facility]01-24-2025 Telephone encounter Note * Telephone Encounter - [...] Only call with furtheradvice. Charlette Starkey RN [facility]01-20-2025 Telephone encounter Note* Telephone Encounter - Keshav Loving MD - 06/28/2024 8:49 AM EST Agree with recommendations thanks [facility] Work Phone: [phone]) 770-704501-20-2025 Miscellaneous Notes* Telephone Encounter - Keshav Loving [...] advice. Charlette Starkey RN documented in this encounterPremier Health [facility]01-20-2025 Telephone encounter Note * Telephone Encounter - [...] call with further advice. Charlette Starkey RN [facility]01-17-2025 Miscellaneous Notes* Telephone Encounter - Kelsy Guillermo DO - 06/25/2024 11:29 AM EST Reviewed BG data- responded as follows; Good morning- I reviewed your BG data- Lets increase NPH to 70 units at bedtime. Continue Humalog 18 units prior to each meal + additional 5 units with "Higher carb" meals (camilo with * if/when you take the extra insulin so I can see if it is working or not). Will review again next week- thanks! Dr Guillermo documented in this encounterPremier Health [facility]01-17-2025 Telephone encounter Note * Telephone Encounter - Kelsy Guillermo DO - 06/25/2024 11:29 AM EST Reviewed BG data- responded as follows; Good morning- I reviewed your BG data- Lets increase NPH to 70 units at bedtime. Continue Humalog 18 units prior to each meal + additional 5 units with "Higher carb" meals (camilo with * if/when you take the extra insulin so I can see if it is working or not). Will review again next week- thanks! Dr Guillermo [facility]01-14-2025 Telephone encounter Note* Telephone Encounter - Ezra [...] with Primary OB Provider. Ezra Crabtree RN [facility]01-14-2025 Miscellaneous Notes* Telephone Encounter - Ezra Crabtree [...] Provider. Ezra Crabtree RN documented in this encounterPremier Health [facility]01-11-2025 Telephone encounter Note * Telephone Encounter - Kelsy Guillermo DO - 06/19/2024 3:18 PM EST Reviewed BG data- responded as follows: Good afternoon- I reviewed your BG data/CGM data- your sensor average BG is 122 mg/dL. You are doing well overall. Lets increase NPH again to 64 units at bedtime. Continue Humalog 18 units prior to each meal + 5 units with "Higher carb" meals. Will review again next week- thanks! Dr Guillermo [facility]01-11-2025 Miscellaneous Notes* Telephone Encounter - Kelsy Guillermo DO - 06/19/2024 3:18 PM EST Reviewed BG data- responded as follows: Good afternoon- I reviewed your BG data/CGM data- your sensor average BG is 122 mg/dL. You are doing well overall. Lets increase NPH again to 64 units at bedtime. Continue Humalog 18 units prior to each meal + 5 units with "Higher carb" meals. Will review again next week- thanks! Dr Guillermo documented in this encounterPremier Health [facility]01-08-2025 History of Present illness Narrative* Carrie Larsen, BRICE - 06/16/2024 10:[address] [facility] Medical Nutrition Therapy Visit Type: Virtual: "I have discussed the nature of this visit with the patient which will occur via [facility] (Phone, Virtual Visit) and she agrees to proceed with this interaction". I have communicated my name and active licensure. The patient's identity and physical location wereverified at the time of this visit. Either the patient or their legal community health program representative has been informed of the risks [...] cheesy rice Snacks: Rarely, unless she is "going low" - will have 1/2 cup juice -has some protein yogurt Pt receives Fluids: water or sometimes powerade zero sugar or propel ETOH: none Dining/eating out? Yes, almost daily Appetite: low Allergies: No Food Allergy Patient / Provider Comments: -Type 2 diabetes antepartum -Pt has 7 year old daughter- had DM during that - had macrosomia, delivered in [place]. -She was initially diagnosed with type 2 [...] insulin as needed -she notices higher BG "mid morning and around lunch time" Medications: Current Outpatient Medications Medication Sig Blood-Glucose [...] 10-IRON FUM-FOLIC ORAL Take by mouth. Insulin [place], Disposable, (BD ULTRAFINE III MINI PEN) 31 gauge x 3/16" 4 times/day Blood-Glucose Sensor (SometricsSTYLE ZOLTAN 3 PLUS SENSOR) candice Use as instructed. Change sensors every 14 days FLUoxetine (PROZAC) 40 mg capsule Take 40 mg by mouth. albuterol HFA (PROVENTIL HFA, VENTOLIN HFA) 90 mcg/actuation inhaler Inhale 2 Puffs as instructed. No current facility-administered medications for this visit. Labs: Lab Results Component Value Date HBA1C 10.5 05/03/2024 HBA1C 6.6 12/16/2016 No results found for: "CHOL", "HDL", "LDL", "TG" Glucose (mg/dL) Date Value 05/07/2024 216 Potassium [...] Readings: Date: Ht: 05/07/2024 158.5 cm (5' 2.4") Current weight: Last 3 Encounter Wt Readings: Date: Wt: 06/15/2024 80.8 kg (178 lb 3.2 oz) 05/26/2024 78.5 kg (173 lb) 05/07/2024 77.9 kg (171 lb 12.8 oz) 05/03/2024 77.9 kg (171 lb 11.8 oz) BMI: 32.17 Last Wt 06/15/24 : 80.8 kg (178 lb 3.2 oz) Pre- weight: 191 lbs Pre- BMI: 34.9 TW lbs [place] [facility] Weight Gain Recommendations for : [...] Larsen M.S., MEHNAZ, LD documented in this encounterPremier Health [facility]01-08-2025 NoteL[facility]01-07-2025 NoteL[facility]01-07-2025 History of Present illness Narrative* Pooja Latham MD - 06/15/2024 1:37 PM EST Images from the original note were not included. Information Systems Security Specialist [place] OUTPATIENT VISIT DATE June 15, 2024 OUTPATIENT VISIT TYPE CONSULT REFERRING PROVIDER: Zayda Parker APRN.[employer]ACHER PULP Recommendations from today's consultation will be conveyed through the electronic medical record. History of Present Illness: 29 year old at 13w3d with Estimated Date of Delivery: 12/18/24 presenting for consultation with Maternal- Medicine at the [facility] in the setting of sub-optimally controlled T2DM [...] around age 12-14. She is followed by Cutting Machine T[employer] Hel[employer] Dr. Guillermo. She was last seen in [...] 10-IRON FUM-FOLIC ORAL Take by mouth. Insulin [place], Disposable, (BD ULTRAFINE III MINI PEN) 31 gauge x 3/16" 4 times/day Blood-Glucose Sensor (FREESTYLE ZOLTAN 3 [...] shows: - Single, live, intrauterine . - [place] rump length measurement is consistent with the [...] Lymph 1.00 - 4.00 k/uL 2.83 Abs [place] <0.87 k/uL 0.37 Abs Eosin <0.46 k/uL [...] cardiovascular systems. 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 Pooja Latham MD June 15, 2024 3:33 PM documented in this encounterPremier Health [facility]01-06-2025 Telephone encounter Note * Telephone Encounter - Kelsy Guillermo DO - 06/14/2024 4:56 PM EST Rx sent KB [facility]01-06-2025 Miscellaneous Notes* Telephone Encounter - Kelsy Guillermo DO - 06/14/2024 4:56 PM EST Rx sent KB documented in this encounterPremier Health [facility]01-03-2025 Telephone encounter Note * Telephone Encounter - [...] to each meal + 5 units with "Higher carb" meals. Camilo with * if/when you take the extra insulin. Will review again next week- thanks! KB [facility]01-03-2025 Miscellaneous Notes* Telephone Encounter - Kelsy Guillermo DO - 06/11/2024 5:18 PM EST Reviewed BG data- responded as follows: Good afternoon- I reviewed your BG /CGM data- your sensor average BG is 127 mg/dL. Still a bit highovernight/in AM- lets increase NPH a bit more to 58 units at bedtime Continue Humalog 18 units prior to each meal + 5 units with "Higher carb" meals. Camilo with * if/when you take the extra insulin. Will review again next week- thanks! KB documented in this encounterPremier Health [facility]12-30-2024 Instructions* Patient Instructions* Kelsy Guillermo DO - [...] to each meal + 5 units with "Higher carb" meals. Camilo with * if/when you take the extra insulin 4) take 1/2 of the Humalog if you don't feel like you're going to eat enough or eat a lower carb meal. Camilo with "0" if you take less insulin 5) see me in 8 weeks for f/u. documented in this encounterPremier Health [facility]12-30-2024 History of Present illness Narrative* Kelsy Guillermo [...] DM during thatpregnancy- had macrosomia, delivered in [place]. She was initially diagnosed with type 2 [...] to each meal + 5 units with "Higher carb" meals. This continuous glucose monitoring (sensor) data [...] third trimester 12/12/2016 12/23/16 - admitted to [facility] for glucoregulation, likely will need delivery at 37 weeks - KJ 12/12/2016 She is a Type 2 diabetic and started Insulin during the .Last HGB A1c 6.9 on 11/14/2016.She sees an plsql developer, Dr Asif. Her records have been faxed here during the visit and are sent to [address] Gramajo review. TKRN January 14, 2017 EFW is approx 95%. Monitor closely, cons with care elsewhere, antepartum 12/12/2016 12/12/2016Patient is transferring [facility] from [facility] [place]. She states she has moved from [place] to [place] and wishes to be seen here.There is some notations by her previous doctor ofnon-compliance issues with keeping appointments and diabetic diet/Insulin dosages. She states she was seen at the [facility] 11/18 for decreased movement and then again [...] 10-IRON FUM-FOLIC ORAL Take by mouth. Insulin [place], Disposable, (BD ULTRAFINE III MINI PEN) 31 gauge x 3/16" 4 times/day 150 Each 5 Blood-Glucose Sensor (SometricsSTYLE ZOLTAN 3 PLUS SENSOR) candice Use as [...] forward me your blood glucose data weekly ([email or web address])- we will get you CGM (sensor)- you should write your numbers down fasting, and 2 hour post meal- and send me these data each friday. 3) increase NPH to 53 units at bedtime Continue Humalog 18 units prior to each meal + 5 units with "Higher carb" meals. Camilo with * if/when you take the extra insulin 4) take 1/2 of the Humalog if you don't feel like you're going to eat enough or eat a lower carb meal. Camilo with "0" if you take less insulin 5) see me in 8 weeks for f/u. 3. ophthalmology-: she has seen ophthalmology within the last two months and does not have diabeticretinopathy. I spent a total of 30 minutes on the date of the service which included preparing to see the patient, [id number] patient care, completing clinical documentation, obtaining and/or reviewing separately obtained history, performing a medically appropriate examination, counseling and educating the pat ient/family/caregiver, and ordering medications, tests, or procedures. Kelsy Guillermo DO documented in this encounterPremier Health [facility]12-30-2024 NoteL[facility]12-30-2024 NoteHNO ID: [id number] Author: FAINA LEVIN MA Service: ? Author Type: Oil [employer] Principal Type: Procedures Filed: 06/07/2024 15:02 Note Text:[facility]12-30-20[facility] Procedure note* Faina Levin MA - 06/07/2024 2:14 PM ESTProcedure(s): EXTERNAL SOCIAL MEDIA INTERN, CGM SYS Images from the original note were not included. [facility]12-30-2024 Procedure note* Faina Levin MA - 06/07/2024 2:14 PM ESTProcedure(s): EXTERNAL SOCIAL MEDIA INTERN, CGM SYS Images from the original note were not included. documented in this encounterPremier Health [facility]12-28-2024 Telephone encounter Note * Telephone Encounter - [...] additional 5 units of Humalog with any "higher carb" meals) Camilo with * if/when you take it so I can see if it is working or not. Let me know how things are going next week- thanks! Dr Guillermo [facility]12-28-2024 Miscellaneous Notes* Telephone Encounter - Kelsy Guillermo [...] additional 5 units of Humalog with any "higher carb" meals) Camilo with * if/when you take it so I can see if it is working or not. Let me know how things are going next week- thanks! Dr Guillermo documented in this encounterPremier Health [facility]12-24-2024 Telephone encounter Note * Telephone Encounter - [...] an additional 5 unitsof Humalog with any "higher carb" meals (means if you eat something that you think will increase your blood sugar- take the extra insulin with that meal). Camilo with * if/when you take it so I can seeif it is working or not. Let me know how things are going next week- thanks! Dr Guillermo [facility]12-24-2024 Miscellaneous Notes* Telephone Encounter - Kelsy Guillermo [...] an additional 5 unitsof Humalog with any "higher carb" meals (means if you eat something that you think will increase your blood sugar- take the extra insulin with that meal). Camilo with * if/when you take it so I can seeif it is working or not. Let me know how things are going next week- thanks! Dr Guillermo documented in this encounterPremier Health [facility]12-18-2024 Telephone encounter Note * Telephone Encounter - Amelia Rose RN - 05/26/2024 2:28 PM EST A PA for Humalog submitted and was approved. Spoke to patient and advised. She can use the voucher as well. [facility]12-18-2024 Miscellaneous Notes* Telephone Encounter - Amelia Rose [...] Please review and advise. documented in this encounterPremier Health [facility]12-18-2024 Telephone encounter Note * Telephone Encounter - [...] get her Humalog. Please review and advise. [facility]12-18-2024 Progress note* Quick Notes - Krys Kulkarni [...] apparent distress Has been adjusting insulin q Fabiano with endocrine. Fasting BG still elevated in [...] Unknown. No results found Krys Kulkarni MD [facility]12-18-2024 Miscellaneous Notes* Quick Notes - Krys Kulkarni [...] found Krys Kulkarni MD documented in this encounterPremier Health [facility]12-18-2024 Instructions* Patient Instructions* Gino Wood MA - 05/26/2024 9:50 AM EST SEQUENTIAL SCREENINGS The [facility] offers sequential screenings for women who are [...] testing. It will require an appointment withour hydroelectric production technician. This is not an ultrasound performed [...] the above symptoms, contact our office at [phone] and ask to speak with anurse. After hours, you can call doctors registry at [phone] OR call [facility] at [phone] ask to have the doctor data migration lead paged. If you consider this an emergency, dial 9-1-4 or go to your nearest emergency department. NEED HELP? Are you dealing with a violent or abusive relationship? Are you a victim of rape or sexual assult? Call [facility] ([place]) 24 hour Crisis Hotline: 554.268.2330 or 530-329-9052. MANUAL Your Guide to a Healthy manual is now on-line. Visit [email or web address] to download your free copy documented in this encounterPremier Health [facility]12-17-2024 Telephone encounter Note * Telephone Encounter - Charlette Starkey RN - 05/25/2024 10:15 AM EST Spoke to patient. She has not vomited since last week. Feeling slightly better and hasn't had that many low blood sugars since calling last week. Appetite still minimal. She is trying to eat small frequent snacks. Aware PA will be submitted for dicPlandrees. Scheduled appt for tomorrow with REGLA. Charlette Starkey RN [facility]12-17-2024 Miscellaneous Notes* Telephone Encounter - Charlette Starkey RN - 05/25/2024 10:15 AM EST Spoke to patient. She has not vomited since last week. Feeling slightly better and hasn't had that many low blood sugars since calling last week. Appetite still minimal. She is trying to eat small frequent snacks. Aware PA will be submitted for Zameen.comle[employer]anza[employer] [place]. Scheduled appt for tomorrow with JG. Charlette [...] contact his office too. Please advise. Charlette Starkey, RN documented in this encounterPrem[facility] Hospital Discharge instructions* Discharge Instructions* Reza Dyer DO - 05/21/2024 8:33 PM EST Call OB on Friday for follow-up appointment. * Attachments The following attachments cannot be sent through Care Everywhere. * The Second Month (Uruguayan) [facility] Work Phone: 1(400) 811-116012-13-2024 Emergency department Note* Reza Dyer DO - [...] Never Physical Exam ED Triage Vitals [05/21/24 1912] Temperature Heart Rate Respirations BP 36.5 C [...] performed using a different test methodology at [facility] than other [facility]. Direct result comparison should only [...] Color, Urine Appearance, Urine Turbid (*) Specific Waverly, Urine 1.029 pH, Urine 6.0 Protein, Urine [...] Abnormality Status --------- ------ Urinalysis with Reflex C...[[id number]] Abnormal Final result Extra Urine Bolton Tube[[id number]] In process Please view results for these [...] Care: Appropriate for discharge and follow-up with MOTION PICTURE COMMENTATOR. Procedure Procedures Reza Dyer DO 05/21/242036 documented in this [facility] Work Phone: 1(522) 206-470412-13-2024 Physician Emergency department Note* Reza Dyer DO [...] Never Physical Exam ED Triage Vitals [05/21/24 1912] Temperature Heart Rate Respirations BP 36.5 C [...] HCG measurement is performed using the Anson Ranger Access Immunoassay which detects intact HCG and free beta HCG subunit. This test is not indicated for use as a tumor marker. HCG testing is performed using a different test methodology at [facility] than other [facility]. Direct result comparison should only [...] Color, Urine Appearance, Urine Turbid (*) Specific Waverly, Urine 1.029 pH, Urine 6.0 Protein, Urine [...] Abnormality Status --------- ------ Urinalysis with Reflex C...[[id number]] Abnormal Final result Extra Urine Bolton Tube[[id number]] In process Please view results for these [...] Care: Appropriate for discharge and follow-up with MOTION PICTURE COMMENTATOR. Procedure Procedures Reza Dyer DO 05/21/242036 [facility] Work Phone: 1(777) 148-707612-12-2024 Telephone encounter Note* Telephone Encounter - Krys Murcia RN - 05/20/2024 10:00 AM EST Left message for patient to call office. Review below recommendations. RX for Diclegis was sent in today. Received message from pharmacy that this needs Prior Auth. Krys Murcia, RN [facility]12-12-2024 Telephone encounter Note* Telephone Encounter - Piper [...] get to there. . Piper Julian MD [facility]12-12-2024 Telephone encounter Note* Telephone Encounter [...] office too. Please advise. Charlette Starkey RN [facility]12-09-2024 Telephone encounter Note* Telephone Encounter - Amelia Rose RN - 05/17/2024 11:48 AM EST Spoke to patient and advised about insulin taking. No further questions for now. [facility]12-09-2024 Miscellaneous Notes* Telephone Encounter - Amelia Rose RN - 05/17/2024 11:48 AM EST Spoke to patient and advised about insulin taking. No further questions for now. documented in this encounterPrem[facility]-2024 Telephone encounter Note * Telephone Encounter - Kelsy Guillermo DO - 05/17/2024 11:09 AM EST Reviewed BG data- responded as follows: Hi Hoda - your sensor average is 193 mg/dL. I would recommend that you do the following: increase NPH to 32 units at bedtime increase Humalog to 15 units prior to each meal. Will review again on friday thanks! KB [facility]12-09-2024 Miscellaneous Notes* Telephone Encounter - Kelsy Guillermo DO - 05/17/2024 11:09 AM EST Reviewed BG data- responded as follows: Hi Hoda - your sensor average is 193 mg/dL. I would recommend that you do the following: increase NPH to 32 units at bedtime increase Humalog to 15 units prior to each meal. Will review again on friday thanks! NILES documented in this encounterPrem[facility]-2024 [facility] Procedure note* Ana Sawyer MSW - 05/11/2024 4:09 PM EST Sw met with patient to review social service needs and social service assistance options. Patient notes that she signed up for WIC. Patient also notes signing up for [facility] Housing voucher. Patient notes that she is attending parenting classes through [facility]. Sw and patient also discussed reaching out to 180 for help with housing options. Patient reports that where she lives in [place] does not allow for children. Sw called [...] security statements. Patient and Sw also discussed [employer] as well at [facility]. Sw wrote down Berks's address and 180 address and contact info for patient. Patient also noted that she [facility]. Patient has this direct number for any further assistance needs. Patient also noted that when she left this office that she would go down to 180 and see what housing supportive service resources they may be able to offer. [facility]12-03-2024 Procedure note* Ana Sawyer MSW - 05/11/2024 4:09 PM EST Sw met with patient to review social service needs and social service assistance options. Patient notes that she signed up for WIC. Patient also notes signing up for [facility] and [facility] Housing voucher. Patient notes that she is attending parenting classes through [facility]. Sw and patient also discussed reaching out to [facility] for help with housing options. Patient reports that where she lives in [place] does not allow for children. Sw called [...] security statements. Patient and Sw also discussed [employer] as well at [facility]. Sw wrote down [place]'s address and 180 address and contact info for patient. Patient also noted that she sees counselor at [facility]. Patient has this direct number for any further assistance needs. Patient also noted that when she left this office that she would go down to 180 and see what housing supportive service resources they may be able to offer. documented in this encounterPrem[facility]12-[facility]-2024 Telephone encounter Note * Telephone Encounter - [...] data again friday AM thanks Dr Guillermo [facility]12-01-2024 Miscellaneous Notes* Telephone Encounter - Kelsy Guillermo [...] AM thanks Dr Guillermo documented in this encounterPremier Health [facility]11-29-2024 Note* Addendum Note - Zayda Parker APRN.CNP - 05/07/2024 10:36 AM ESTAddended by: ZAYDA PARKER on: 05/07/2024 10:36 AM Modules accepted: Orders [facility]11-29-2024 Miscellaneous Notes* Addendum Note - Zayda Parker APRN.CNP - 05/07/2024 10:36 AM ESTAddended by: ZAYDA PARKER on: 05/07/2024 10:36 AM Modules accepted: Orders * Addendum Note - Sudneep Salvador MA - 05/07/2024 10:25 AM ESTAddended by: SUNDEEP SALVADOR on: 05/07/2024 10:25 AM Modules accepted: Orders documented in this encounterPremier Health [facility]11-29-2024 Note* Addendum Note - Sundeep Salvador MA - 05/07/2024 10:25 AM ESTAddended by: SUNDEEP SALVADOR on: 05/07/2024 10:25 AM Modules accepted: Orders [facility]11-29-2024 Instructions* Patient Instructions* Zayda Parker APRN.REYES - 05/07/2024 9:01 AM EST Images from the original note were not included. Please select the following link to access the [facility] Your Guide to a Healthy . www.Ccf.org/healthypregnancyguide MORNING SICKNESS IN by Estela Villa M.D. for [employer] As you may already know, morning sickness can often be more appropriately called evening sickness or qxlfa-vplnrc-zf-the-day sickness. While there are the arabella few, [...] medication, Doxylamine, is currently marketed as an nzkp-aly-krdztwa sleeping pill. Ask your practitioner if creating a vitamin B6/Doxylaminecombination with irgp-ivt-wculens medications would be safe for you. Prescription [...] as Phenergan, Compazine, Reglan Psychotherapy Services at [facility] Call [facility] Access Line at [phone] to schedule Individual psychotherapy In-person or virtual Wait time for first evaluation may be 12 or more weeks. Wait list spots may be available. Due to the high volume of patients this option is recommended if you are looking for short term acute symptomcoping strategies. 0-758-8-VMRZ6QOLD - [place] Maternal Mental Health Hotline If you are in suicidal crisis, please call or text 2-331-090-TALK ( ) or visit the National Suicide Prevention Lifeline website. mchb.[facility] valley hospitala.gov If you are in crisis, call 911 or go to your nearest Emergency Department Here are some links for wonderful Providers here in the community and surrounding areas. Do not hesitate to contact their offices, many are offering virtual visits during this time. Psychotherapy Services outside of [facility] Support International Online Provider Directory https://Competitor.Ethics Resource Group/ - can assist in finding providers in your area that might be more extensive then the list below. [facility] [place], [place] [address] [place] [phone] [facility] [address] [place] [address] [facility] [address] [place] [address] [facility] [address] [place], [place] [id number] Karen Kaur MD [address] [place] [address] [facility] [address] [facility], [address] [place] [address] [facility]iatric Services [address] [place] [address] [facility] Counseling Services [place] / [place] [phone]/ [phone] Nancy Saba [address] [facility] [address] [facility] [phone] Aves of Counseling and Mediation Garcia / Gaby [phone] [facility] [address] [place] [address]/ [facility] [place] [phone] Mike Choudhary, ANASTASIA, CLC Bump and Beyond Family Therapy Workshops, telehealth and at home visits. [phone] Humanistic counseling center 20 locations Lydia Burgos [place], [place], [place], [place], [place], [place] hts, [place], [place], [place], [place], [place], [employer], [facility], [place], [place] ,[facility], [place], [place],[facility], south [place], [place], [facility] hts, [facility], [place] www.Aria Analytics [phone] Psychotherapy resources outside of [facility] are listed below [facility] Exajoule Psychotherapy Web: https://www.Future Fleet/ Support International Online Provider Directory https://Taxon Biosciences/ Insight Counseling https://ProtonMedia/ Keecker for Behavioral Health and Wellness Web: https://Encubate Business Consulting/ Dragon Tail Effective Living Web: https://SOMNIUM Technologies/ LifeStance Web: https://expressor software/location/[facility]/[place]/ [facility] Web: https://www.signatureinscription house [facility] center.org/ [facility] Web: https://CeeLite Technologies.org/ Recovery Resources Mental health and substance abuse help Web: https://www.RelinkLabs.News in Shorts & RESOURCES Support International Direct peer support and connection to professional resources Non-Emergency Helpline Phone: / Text: [phone] Web: https://www..net/ Online Provider Directory: https://Taxon Biosciences/ Online Support Meetings: https://www..net/get-help/zcg-btatix-uwejiui-meetings/ ARON Baby and Regulatory Process Manager Services Web: https://wwwOrganic Waste Management/ MotherToBaby Expert information on medication use during and Text: [phone] Web: https://mothertobaby.org/ NATIONAL REGISTRY FOR PSYCHIATRIC MEDICATIONS Currently studying the safety of antidepressants, ADHD medications and atypical antipsychotics taken during TO PARTICIPATE CALL TOLL-FREE: Web: https://womenentalhealth.org/research/pregnancyregistry/ Support Groups: [facility]- Follow on facebook Baby Bistro support group led by [facility] department [facility] Mamas - Support Group [facility] Campusmas.org The POEM support group [phone] Www.poemonline.org Follow on facebook - DEDRICK cisneros Online support meetings PSI https://www..net/get-help/inq-wrhyeb-jjrqobp-meetings/ [facility] julita and me virtual support group 11:30-1pm Support for mothers and new babies and toddlers [facility] childbirth education: Childbirth @[facility].org or call [phone] CRISIS: CRISIS HOTLINE [phone], 911 or go to the nearest . [facility] [phone] / [facility] [phone] https://www.u.[facility].org Crisis text line text the word "HOME" to 213033 [facility] Counseling [address] [facility] [address] www.Education Elements Brgiitte Kwan clinical counseling [address] [address] www.Shawarmanji [phone] Holding [facility] psychotherapy Maricruz No [facility] PAPER TESTER-S [address] [facility] www.StationDigital Corporation [phone]/ Savanah [phone] They all offer virtual. All work with trauma Support groups Online support meetings PSI https://www..net/get-help/fby-vghray-rwtgeea-meetings/ Here are the support groups they offer: Support of parents of 1 to 4 years old children POEM ( Outreach and Encouragement for Moms) offers free support for mothers experiencing depression, anxiety, and other mood and anxiety disorders. Masks are recommended but not required. No pre-registration required. Babies in arms welcome. meetings now take place on the and Friday of each month Location: Channing Hernandez [facility] [address] [place] [address] Room 122 (library room) 7-8:00 p.m. When you enter the religious parking lot off of [address] the entrance door closest to our meeting room is on the front of the building toward the right. For those who are more comfortable with a virtual platform, Vigilistics offers online support group options several days of the week. To register for an online group or to find out more about POEM, website at: https://mhaohio.org/get-help/miwwlrop-eklceu-chfnmg/poem-services/ offer a confidential helpline: private Facebook group is called DEDRICK Cisneros Here are the groups they offer: Traumatic childbirth resources: Http://pattch.org/ https://www.GaniparajesusReqlut.Ethics Resource Group/ Name Location (s) Phone # (s) Services Website Holding Space Psychotherapy [address] [place], [place] - [phone]; [address] [phone] In-Person GROUPS INDIVIDUAL THERAPY MATERNAL- MENTAL HEALTH MEDICATION MANAGEMENT PLAY AND ART THERAPY TELETHERAPY https://www.VOIS, Inc..Ethics Resource Group/services/ [facility] [place] JIMENA? [address] [place], [place] [address] ? [address], [address] [place], [place] [address] ? [place] [address] [place] [address]? Grief Support Groups Individual Grief Counseling Spiritual Care Memorial Events https://jimena.cornerscentrastate healthcare systemeofintermountain medical centere.org/grief-services [facility] [address] [place], [place] [address]; ; Email: [email or web address]@ClubTrader, LLCSolidia Technologies Women's Mental Health; Couples Counseling; Trauma (EMDR); Stress Management; Mood and Anxiety Related Disorders- and much more https://www.Rocketskates.Ethics Resource Group/ LifeStance Numerous as they have contract providers: access website to find specific providers nearyou Counseling including CBT and EMDR as well as many more modalities; Medication Management; Telehealth and In-Person https://Thrive Solo.Ethics Resource Group/ [facility] [address] [place], [place] [address]; [phone] Personal, Family and Group Therapy; Psychological Testing and Diagnosis; Medication Management; Life and Career Coaching; Psychoanalysis; Literacy Testing; Yoga and Meditation https://Encubate Business Consulting/ MetroFlats.com [facility] [address] [facility] [address], [place] [address] [address] ; [facility], [address] [place] [address]; Office # for both sites: Individual and Couples Counseling https://www.MagForce.Ethics Resource Group/paymentinsurance.html OCD & Anxiety [facility] [address], [place] [address]; Specialize in Cognitive-Behavioral Therapy (CBT) for the treatment of anxiety disorders across the lifespan. TELEHEALTH ONLY. https://ocdandanxietycentKAICORE/faqs [facility] [address] [place], [address] [place] [address] [facility] [place], [address] [place] [address] [facility] [place] [address] [place], [address], [address] [place] [address] [place] [address]. [place], [address] [place] [address] [place], [address] Transportation Services To minimize patient barriers, Ellis [...] assistance Substance abuse treatment Medication assisted treatment https://www.[facility].org/mental-health/ [facility] OFFICE AT [facility] [address] [place] [address] [facility] OFFICE [address] [place] [address] [facility] OFFICE [address] [place] [address] TO OFFICE (at [facility]) [address] [place] [address] [facility] SYRINGE EXCHANGE PROGRAM & HIV SCREENING [address] [place] [address] VAN [place]ING[place] EXCHANGE PROGRAM [address] [place] [address] Behavioral Health Urgent Care: [facility] Counseling Indvidual and Group Medication Management Case Management benefits applications housing assistance Substance abuse treatment Medication assisted treatment Employment Services/ Job Training https://theLabArchives.org/ Recovery Resources [address] [place], [place] [address]: P: [phone] [address] [facility], [address], [place] [address] P: [phone] Our services include: Addiction Mental Health Treatment Assessment Psychiatry Medical Care Employment Housing Drug and Alcohol Prevention HIV/AIDS Prevention https://www.recres.org/ [facility] [place] [address] [place] [address] [place], [place] [address] [address] [place] [address] [place] [address] [facility] [address] [place] [address] [place] [address] [address] [place] [address] TMS Therapy/ Counseling Psychocological Testing for ADHD Medication Management In-Person/ Telemedicine https://www.Immunomic Therapeutics.com/patients-depression Memory & Psychological services [address], [place] [address] Neuropsychological Testing For ADHD https://www.memoryandpsych.com/ [facility] Office [address] [place] [address] [address] [place] [address] [place], [place] [address] Providing ookp-ak-bmel and telehealth services. Adult Case Management Community Education and Prevention Employment Outpatient Treatment - Counseling & Psychotherapy Psychiatric Services http://www.[facility].org/ [facility] [place] [address] [place] [address] Misty [facility]) [address] [place] [address] Virtual Appointments! Now offering safe and convenient virtual client appointments to anyone in [place]! Individual Therapy Couples/Relationship Therapy Trauma/EMDR Therapy Art Therapy Play Therapy Wireworker Support: Parenting Skills, Parent Child Interaction Therapy, Parent Interaction Therapy Meditation Dietitian/Catering Coordinator Services Group Therapy Yoga https://www.CIBDO/ Nohemy [place] [phone] Private Practice: Telehealth Only Specializes in EMDR [...] and other health problems. There is no "safe" level of smoking for your baby's health. [...] smoke. (This information is provided by the [facility] and is not intended to replace the medical advice of your doctor or health care provider. Please consult your health care provider for advice about a specific medical condition. For additional written health information, please call the Cancer Answer Line at [facility] Cancer [place] Friday - Friday 8-4:30 for assistance: [phone]. Or visitwww.[facility].org/health/) From [facility]'s Tobacco Cessation website: Our comprehensive [...] help you with your financial plan. Contact [phone] for more information. [place] Tobacco Program Visit https://[place].quitlogix.org/en-US/ or call 1-483-JYLJ-NOW documented in this encounterPrem[facility] History of Present illness Narrative* Jamari Byrne [...] with other nicotine-induced disorder documented in this [facility] Work Phone: 1(508) 806-970411-25-2024 Nurse Note* Amelia Rose RN - 05/03/2024 [...] Time spent on patient education: 35 minutes. [facility]11-25-2024 Nurse Note* Amelia Rose RN - 05/03/2024 3:06 PM EST AMBULATORY PATIENT EDUCATION NOTE The patient started the following personal CGM today: Freestyle Libre3+ Patient-provided sensor expiration date: 08/06/2024 Sensor insertion location: back of left upper arm Insertion performed by: This RN Patient response to insertion: no redness/bleeding [...] patient education: 35 minutes. documented in this encounterPremier Health [facility]11-25-2024 Instructions* Patient Instructions* Kelsy Guillermo DO - [...] units prior to each meal. 4) see political science research assistant (Carrie Larsen) virtual visit 5) see me in 4 weeks (virtual visit) documented in this encounterPremier Health [facility]11-25-2024 [facility]11-25-2024 History of Present illness Narrative* Kelsy [...] during that - had macrosomia, delivered in [place]. She was initially diagnosed with type 2 [...] third trimester 12/12/2016 12/23/16 - admitted to [facility] for glucoregulation, likely will need delivery at 37 weeks - KJ 12/12/2016 She is a Type 2 diabetic and started Insulin during the .Last HGB A1c 6.9 on 11/14/2016.She sees an plsql developer, Dr Asif. Her records have been faxed here during the visit and are sent to [address] Gramajo review. TKRN January 14, 2017 EFW is approx 95%. Monitor closely, cons with care elsewhere, antepartum 12/12/2016 12/12/2016Patient is transferring care from [place] [facility] [place]. She states she has moved from [place] to [place] and wishes to be seen here.There is some notations by her previous doctor ofnon-compliance issues with keeping appointments and diabetic diet/Insulin dosages. She states she was seen at the [facility] 11/18 for decreased movement and then again [...] units prior to each meal. 4) see political science research assistant (Carrie Larsen) virtual visit 5) see [...] which included preparing to see the patient, [id number] patient care, completing clinical documentation, obtaining and/or reviewing separately obtained history, performing a medically appropriate examination, counseling and educating the pat ient/family/caregiver, and ordering medications, tests, or procedures. Kelsy Guillermo DO documented in this encounterPremier Health [facility]11-25-2024 Telephone encounter Note * Telephone Encounter - Brenda Lares RN - 05/03/2024 11:11 AM EST Patient had intake questions completed today for upcoming new OB appointment with Zayda stratton.. Please see her depression and anxiety scoring. Patient states her anxiety has not worsened lately and that "My symptoms are typical " Denies any worsening symptoms. Patient has a history of bipolar depression diagnosed in 2014. She currently sees Dr. Womack, a psychiatrist at [facility]. States that she recently had an appointment with him and has an upcoming appointment inJanuary. Patient states he is aware that she is and has discussed psychiatric medications during . Also sees a therapist Dr. Olmstead at the [facility]. Her next ap pointment there is [...] FYI. Call back only if further advice [facility]11-25-2024 Miscellaneous Notes* Telephone Encounter - Brenda Lares RN - 05/03/2024 11:11 AM EST Patient had intake questions completed today for upcoming new OB appointment with Zayda stratton.. Please see her depression and anxiety scoring. Patient states her anxiety has not worsened lately and that "My symptoms are typical " Denies any worsening symptoms. Patient has a history of bipolar depression diagnosed in 2014. She currently sees Dr. Womack, a psychiatrist at [facility]. States that she recently had an appointment with him and has an upcoming appointment inJanuary. Patient states he is aware that she is and has discussed psychiatric medications during . Also sees a therapist Dr. Olmstead at the [facility]. Her next ap pointment there is [...] only if further advice documented in this encounterPremier Health [facility]11-25-2024 Telephone encounter Note * Telephone Encounter - Ana Sawyer MSW - 05/03/2024 10:54 AM EST Leeanne spoke with patient and set up appt for patient to come in to the office and see Sw on 05/11 @12:30 to review social service programs in the community. Patient will come to see Leeanne at her office at [facility]. [facility]11-25-2024 Miscellaneous Notes* Telephone Encounter - Ana Sawyer MSW - 05/03/2024 10:54 AM EST Leeanne spoke with patient and set up appt for patient to come in to the office and see Sw on 05/11 @12:30 to review social service programs in the community. Patient will come to see Sw at her office at [facility]. documented in this encounterPremier Health [facility]11-25-20[facility] History of Present illness Narrative* Zayda Parker APRN.BLEACHER PULP - 05/03/2024 10:13 AM EST Images from the original note were not included. Electrical Technology Instructor offered: Patient declines. INITIAL OB ASSESSMENT HPI: [...] harming myself has occurred to me. Never [place] Depression Scale Total 19 Feeling nervous, anxious [...] third trimester 12/12/2016 12/23/16 - admitted to [facility] for glucoregulation, likely will need delivery at 37 weeks - KJ 12/12/2016 She is a Type 2 diabetic and started Insulin during the .Last HGB A1c 6.9 on 11/14/2016.She sees an plsql developer, Dr Asif. Her records have been faxed here during the visit and are sent to [address] Gramajo review. TKRN January 14, 2017 EFW is approx 95%. Monitor closely, cons with care elsewhere, antepartum 12/12/2016 12/12/2016Patient is transferring care from [facility]. She states she has moved from [place] to [place] and wishes to be seen here.There is some notations by her previous doctor ofnon-compliance issues with keeping appointments and diabetic diet/Insulin dosages. She states she was seen at the [facility] 11/18 for decreased movement and then again [...] to each meal. 5 Each 11 Insulin [place], Disposable, (BD ULTRAFINE III MINI PEN) 31 gauge x 3/16" 4 times/day 150 Each 5 Blood-Glucose Sensor [...] discussed with the Patient or Patient's Authorized Loan Documents Closer. As applicable, any other physician, advance practice provider, medical student, or other health professional student that will be observing or involved in the sensitive examination for educational or training purposes was discussed with the Patient or Authorized Loan Documents Closer. The Patient or Authorized Loan Documents Closer has agreed to proceed with the sensitive examination. (Sensitive examination includes inspection and/or palpation of the breasts, pelvis, prostate and anorectal regions). PHYSICAL EXAM: BP 120/60 Ht 5' 2.402" (1.59m) Wt 171 lb 12.8 oz (77.9kg) [...] medications? Yes Pt states she abuse ETOH [id number] In the past month have you drunk [...] plus performing a brief intervention. Zayda Parker APRN.BLEACHER PULP ASSESSMENT: 29 year old at 7w6d wks gestational age PLAN: 1) Patient oriented to practice. Patient given new OB orientation folder. Discussed nutrition, folic acid supplementation, dietary guidelines, exercise, smoking, alcohol, caffeine, and drug use. Discussed gestational weight gain guidelines. Discussed routine OB labs including STD/HIV. Discussed how to access Your guide to a health and the Print Project Manager. Discussed hemoglobin electrophoresis. Patient: Declines Reviewed midwifery and phone circuit operator services that are available. 2) Screening: Hemoglobin [...] weeks): [] Consent [] Contraception - [] Marketing Engineer Third trimester (36-40 weeks): [] GBS [] [...] units of NPH at bedtime Planning for political science research assistant visit with Carrie Larsen Echo [] EKG [] Eye Exam [x] CMP [x] Hemoglobin A1C [x] 10.5 MFM consult placed. Unplanned - 05/07/2024 Comment: May 07, 2024 Patient states this is an unplanned . Patient unsure of paternity of baby. She states it could be her live-in boyfriend or her ex-. She plans on keeping the baby. Zayda Parker APRN.REYES Obesity Affecting in First Trimester - 05/07/2024 Comment: May 07, 2024 Pre BMI 31 Zayda Parker APRN.CNP History of Herpes Genitalis - 05/07/2024 Comment: Treated for HSV outbreak 04/18/2024 at [facility]. Plan for suppression therapy at 36 weeks. To notify with outbreaks. Zayda Parker APRN.BLEACHER PULP H/O Macrosomia in in Prior , Currently - 05/07/2024 Comment: May 07, 2024 10 lb 2oz at 37w4d Zayda Parker APRN.CNP History of Polyhydramnios - 05/07/2024 Comment: 2017 delivery. Zayda Parker APRN.CNP History of Bipolar Disorder - 05/07/2024 History of Depression - 12/12/2016 Comment: May 07, 2024 Has history of bipolar depression diagnosed in 2014. She currently sees Dr. Womack, a psychiatrist at [facility] in [place]. States that she recently had an appointment with him and has an upcoming appointment in June. Patient states he is aware that she is and has discussed psychiatric medications during . Taking Buspar and Prozac. Also sees a therapist Dr. Olmstead at the [facility]. Her next appointment there is May 10. She states she sees him every 2 weeks. Patient states she does have a history of depression. She admits to 2 psychiatric hospitalizations-one in 2019 and one in 2020. She states that [...] states that she did abuse alcohol from 3550-1340. Denies any alcohol use this . Zayda [...] placed. Zayda Parker APRN.CNP documented in this encounterPremier Health [facility]11-22-2024 Telephone encounter Note * Telephone Encounter - Tee Li RN - 04/30/2024 11:10 AM EST Reason for Call: Patient seeking care advice for elevated blood glucose, is , and she is not scheduled to see Endocrinology or OB until next week. Patient confirmed her [facility] PCP is currently managing her diabetes. Outcome: Patient confirmed she will send message and/or call PCP office today to [facility] and make them aware that she stopped [...] day Protocols used: Diabetes - High Blood [id number] [facility]11-22-2024 Miscellaneous Notes* Telephone Encounter - Tee Li RN - 04/30/2024 11:10 AM EST Reason for Call: Patient seeking care advice for elevated blood glucose, is , and she is not scheduled to see Endocrinology or OB until next week. Patient confirmed her [facility] PCP is currently managing her diabetes. Outcome: Patient confirmed she will send message and/or call PCP office today to [facility] and make them aware that she stopped [...] day Protocols used: Diabetes - High Blood [id number] documented in this encounterPremier Health [facility]11-20-2024 History of Present illness Narrative* RORY Lipscomb - 04/28/2024 8:40 AM EST Subjective Patient [...] scheduled to see her OB through the [facility] in May, has a ultrasound scheduled in [place] next week on May 03 and is scheduled to see her primary care provider Dr. Byrne on May 04. She will report effectiveness of medication to Dr. Byrne on her visit. She reports no signs or symptoms of complication at this time. No vaginalbleeding, abdominal or back pain. She did state that around the 3-week gestation phase she had an ultrasound at [facility] which did not detect but showed [...] 140/82 Pulse 104 Ht 1.549 m (5' 1") Wt 77 kg (169 lb 11.2 oz) [...] days Less than 8 weeks gestation of ([facility]) documented in this encounterOhioHealth [facility]ady [facility] Work Phone: 1(763) 222-397411-15-2024 Telephone encounter Note* Telephone Encounter - Sis [...] advising patient to email Dr. Ca at [email or web address]. [facility]11-15-2024 Miscellaneous Notes* Telephone Encounter - Sis Vargas [...] advising patient to email Dr. Ca at [email or web address]. documented in this encounterPremier Health [facility]11-11-2024 Telephone encounter Note * Telephone Encounter - Zayda Parker APRN.CNP - 04/19/2024 8:43 AM EST Noted. Zayda Parker APRN.CNP [facility]11-11-2024 Miscellaneous Notes* Telephone Encounter - Zayda Parker APRN.CNP - 04/19/2024 8:43 AM EST Noted. Zayda Parker APRN.BLEACHER PULP * Telephone Encounter - Krys Murcia RN - 04/19/2024 8:37 AM EST LMP 03/13 Approximately 5w2d. Patient seen at ER yesterday. She was diagnosed with HSV outbreak and UTI. She was prescribed Keflex and Acyclovir. Wanted our office to be aware before her 05/07 NOB with EH. Krys Murcia, RN documented in this encounterPremier Health Miami [facility]11-11-2024 Telephone encounter Note * Telephone Encounter - Krys Murcia, RN - 04/19/2024 8:37 AM EST LMP 03/13 Approximately 5w2d. Patient seen at ER yesterday. She was diagnosed with HSV outbreak and UTI. She was prescribed Keflex and Acyclovir. Wanted our office to be aware before her 05/07 NOB with EH. Krys Murcia, RN [facility]11-10-2024 Emergency department Note* Angy Lynne, INTERNATIONAL LOGISTICS ANALYST-BLEACHER PULP - 04/18/2024 6:44 PM EST Chief Complaint [...] Social History: Reviewed. Allergies reviewed. HPI: Melissa Morris" is a 29 y.o. female who presents to the ED today unaccompanied with complaints of vaginal discharge and concern for . Reports LMP 03/13/24. [id number]. She has been experiencing thin white discharge [...] Urine Yellow Appearance, Urine Turbid (*) Specific [place], Urine 1.048 (*) pH, Urine 6.0 Protein, [...] HCG measurement is performed using the Anson Ranger Access Immunoassay which detects intact HCG and free beta HCG subunit. This test is not indicated for use as a tumor marker. HCG testing is performed using a different test methodology at [facility] than other [facility]. Direct result comparison should only be made within the same method. C. TRACHOMATIS + N. GONORRHOEAE, AMPLIFIED - Normal Neisseria gonorrhea,Amplified Not Detected Chlamydia trachomatis, Amplified Not Detected URINE CULTURE URINALYSIS WITH REFLEX CULTURE AND MICROSCOPIC Narrative: The following orders were created for panel order Urinalysis with Reflex Culture and Microscopic. Procedure Abnormality Status --------- ------ Urinalysis with Reflex C...[[id number]] Abnormal Final result Extra Urine Bolton Tube[[id number]] Please view results for these tests on [...] department at another hospital several days ago, wherejanette was found to be and had an [...] in first trimester #2 herpes simplex outbreak nAgy Lynne, SARAHY-BLEACHER PULP 04/18/24 [id number] documented in this [facility] Work Phone: 1(796) 951-734811-10-2024 Physician Emergency department Note* RORY Patel - [...] Social History: Reviewed. Allergies reviewed. HPI: Melissa Morris" is a 29 y.o. female who presents to the ED today unaccompanied with complaints of vaginal discharge and concern for . Reports LMP 03/13/24. [id number]. She has been experiencing thin white discharge [...] Urine Yellow Appearance, Urine Turbid (*) Specific [place], Urine 1.048 (*) pH, Urine 6.0 Protein, [...] performed using a different test methodology at [facility] than other [facility]. Direct result comparison should only be made within the same method. C. TRACHOMATIS + N. GONORRHOEAE, AMPLIFIED - Normal Neisseria gonorrhea,Amplified Not Detected Chlamydia trachomatis, Amplified Not Detected URINE CULTURE URINALYSIS WITH REFLEX CULTURE AND MICROSCOPIC Narrative: The following orders were created for panel order Urinalysis with Reflex Culture and Microscopic. Procedure Abnormality Status --------- ------ Urinalysis with Reflex C...[[id number]] Abnormal Final result Extra Urine Bolton Tube[[id number]] Please view results for these tests on [...] #2 herpes simplex outbreak RORY Patel 04/18/242139 [facility] Work Phone: [phone]) 310-650011-07-2024 Telephone encounter Note* Telephone Encounter - Julia Cardona RN - 04/15/2024 3:52 PM EST Patient has appt - closing encounter. Julia Cardona RN [facility]11-07-2024 Miscellaneous Notes* Telephone Encounter - Julia Cardona RN - 04/15/2024 3:52 PM EST Patient has appt - closing encounter. Julia Cardona RN * Telephone Encounter - Idania Murphy RN - 04/15/2024 2:00 PM EST Left message to call office. PSS: Please attempt to call patient also to schedule New OB. Thank you. Iadnia Murphy RN * Telephone Encounter - Julia Cardona RN - 04/15/2024 11:03 AM EST Name and identified. LMP? 03/13/24 4w5d When did you have a + test? This week PNV? Not yet Pelvic pain? Was seen in ED in [facility] yesterday for sharp left sided pain [...] have it, so she can receive the "carecompanion" messages. Will forward this encounter to the [...] to: self Call patient at: at home [phone] (home) [phone] (cell) Payor: [employer]ARE / Plan: [facility] MEDIC[facility] / Product Type: Medicare / Paulo Hodges documented in this encounterPremier Health [facility]11-07-2024 Telephone encounter Note * Telephone Encounter - Idania Murphy RN - 04/15/2024 2:00 PM EST Left message to call office. PSS: Please attempt to call patient also to schedule New OB. Thank you. Idania Murphy RN [facility]11-07-2024 Telephone encounter Note* Telephone Encounter - Julia Cardona RN - 04/15/2024 11:03 AM EST Name and identified. LMP? 03/13/24 4w5d When did you have a + test? This week PNV? Not yet Pelvic pain? Was seen in ED in [facility] yesterday for sharp left sided pain [...] have it, so she can receive the "carecompanion" messages. Will forward this encounter to the schedulers in this office. Julia Cardona RN [facility]11-07-2024 NoteDischarge Instructions Discharge Summary [facility] [address] [place] [address] [id number] 04/14/2024 Patient: MELISSA KAUR Sex: Female : 1995 Age: 29y Thank you for visiting [facility]. You have been evaluated today by [...] by patient. Follow-up with: Channing Nixon MD, [facility], [facility], , [address] [place] [address]. Follow up in four days even if well. Call for an appointment. Reason for referral: evaluation and treatment. Summary of care provided to patient. Jon Calvert MD, [place] MOTION PICTURE COMMENTATOR, [facility], Phone: [phone], [place] [address]. Follow up in four days even if well. Call for an appointment. Reason for referral: evaluation and treatment. Summary of care provided to patient. You have been given the following additional information: 1 of 5 Discharge Instructions Patient Signature Facility Loan Documents Closer Date/Time General Instructions with ExitWriter [facility] [address] [place] [address] [id number] 04/14/2024 Patient: MELISSA KAUR Sex: Female : 1995 Age: 29y Thank you for visiting [facility]. You have been evaluated today by [...] by patient. Follow-up with: Channing Nixon MD, [facility], [facility], , [address] [place] [address]. Follow up in four days even if well. Call for an appointment. Reason for referral: evaluation and treatment. Summary of care provided to patient. Jon Calvert MD, [place] MOTION PICTURE COMMENTATOR, [facility], Phone: [phone], [address] [place], [place] 2 of 5 Discharge Instructions [id number]. Follow up in four days even if [...] Stay away from alc (more content not included)...[facility] 04-14-2024 Telephone encounter Note* Telephone Encounter - Julia Cardona RN - 04/14/2024 8:34 AM EST Call placed to patient to triage for new OB appt. Left message for patient to call back Julia Cardona RN [facility]11-06-2024 Telephone encounter Note* Telephone Encounter - Julia [...] to: self Call patient at: at home [phone] (home) [phone] (cell) Payor: [employer] / Plan: [facility] MEDICARE / Product Type: Medicare / Paulo Hodges [facility]08-16-2024 History of Present illness Narrative* Jamari Byrne [...] lipoidica F/u 3 months documented in this [facility] Work Phone: [phone]) 785-638207-18-2024 History of Present illness Narrative* Jamari Byrne [...] 112/70 Pulse 87 Ht 1.575 m (5' 2") Wt 77.3 kg (170 lb 8 oz) [...] - pen needle, diabetic 31 gauge x 5/16" needle; Use to inject 4 times per day documented in this encounterOhioHealth Grady Memorial Hospital Work Phone: 1(473) 805-485304-08-2024 History of Present illness Narrative* Jamari Byrne [...] 10 days transmitter good for 90 days Application Chemist used instead of smart phone Trulicity 1.5 [...] minutes after Hyperglycemia due to diabetes mellitus ([facility]) - metFORMIN (Glucophage) 1,000 mg tablet; Take 1 tablet (1,000 mg) by mouth 2 times a day. - glipiZIDE (Glucotrol) 5 mg tablet; Take 1 tablet (5 mg) by mouth 2 times a day. Exercise-induced asthma - albuterol 90 mcg/actuation inhaler; INHALE 1 TO 2 PUFFS EVERY 6 HOURS NEEDED documented in this [facility] Work Phone: [phone]) 873-321203-12-2024 History of Present illness Narrative* Mary Blackwell PA - 08/19/2023 10:20 AM EDT This note was created using NoteWriter. Subjective Melissa J Kaur is a 28 year old female. [...] third trimester 12/12/2016 12/23/16 - admitted to [facility] for glucoregulation, likely will need delivery at 37 weeks - KJ 12/12/2016 She is a Type 2 diabetic and started Insulin during the .Last HGB A1c 6.9 on 11/14/2016.She sees an plsql developer, Dr Asif. Her records have been faxed here during the visit and are sent to [address] Gramajo review. TKRN January 14, 2017 EFW is approx 95%. Monitor closely, cons with care elsewhere, antepartum 12/12/2016 12/12/2016Patient is transferring care from [facility]. She states she has moved from [place] to [place] and wishes to be seen here.There is some notations by her previous doctor ofnon-compliance issues with keeping appointments and diabetic diet/Insulin dosages. She states she was seen at the [facility] 11/18 for decreased movement and then again [...] ER evaluation. BUDDY Mendoza documented in this encounterPremier Health [facility]02-01-2024 History of Present illness Narrative* Sigrid Avalos [...] a day. Hyperglycemia due to diabetes mellitus ([facility]) - Basic Metabolic Panel; Future - Hemoglobin A1C; Future documented in this [facility] Work Phone: [phone]) 897-760612-01-2023 History of Present illness Narrative* Jamari Byrne [...] this visit: Hyperglycemia due to diabetes mellitus ([facility]) - Dexcom G4 picayune transmitter (Dexcom G6 Transmitter) device; Change as directed - Hemoglobin A1C; Future - Basic Metabolic Panel; Future F/u 2 months documented in this encounterOhioHealth Grady Memorial Hospital Work Phone: 1(634) 915-637712-01-2023 Instructions* Patient Instructions* Jamari Byrne MD - 05/09/2023 11:20 AM EST For hydroelectric plant technician Kandace Washington CNP documented in this encounterOhioHealth Grady Memorial Hospital Work Phone: [phone]) 244-253110-09-2023 History of Present illness Narrative* Jamari Byrne [...] 2017 EIA worse weather changes Down to / ppd Review of Systems Objective BP 110/80 Pulse (!) 111 Ht 1.586 m (5' 2.44") Wt 90.2 kg (198 lb 12.8 oz) [...] HOURS NEEDED Hyperglycemia due to diabetes mellitus ([facility]) - dulaglutide (Trulicity) 1.5 mg/0.5 mL pen injector injection; Inject 3 mg under the skin 1 (one) time per week. - insulin glargine (Lantus Solostar U-100 Insulin) 100 unit/mL (3 mL) pen; Inject 10 Units under the skin once daily at bedtime. Take as directed per insulin instructions. - pen needle, diabetic (BD Ultra-Fine Zaira Pen Needle) 32 gauge x 5/32" needle; Use with lantus pen10 units at bedtime subcutaneous - Dexcom G4 picayune cherry picker operator (Dexcom G6 Application Chemist) misc; Use as instructed documented in this encounterOhioHealth Grady Memorial Hospital Work Phone: 1([phone]) 944-398307-07-2023 History of Present illness Narrative* Jamari Byrne [...] 118/80 Pulse 104 Ht 1.586 m (5' 2.44") Wt 92.5 kg (203 lb 14.4 oz) [...] this visit: Hyperglycemia due to diabetes mellitus ([facility]) - Dexcom G4 picayune transmitter (Dexcom G6 Transmitter) device; Apply every 10 days - insulin glargine (Lantus U-100 Insulin) 100 unit/mL injection; Inject 10 Units under the skin once daily at bedtime. Take as directed per insulin instructions. - pen needle, diabetic 31 gauge x 5/16" needle; Inject nightly - Hemoglobin A1C; Future Other orders - Follow Up In Primary Care documented in this encounterOhioHealth Grady Memorial Hospital Work Phone: [phone]) 795-839703-11-2023 Instructions* Patient Instructions* Lazara Jon DO - 08/17/2022 7:51 PM EST test is negative. Treating presumptively for vaginal yeast infection with prescription for Diflucan. Test for sexually transmitted diseases is pending and you will be notified if there are any positive results. * Attachments The following attachments cannot be sent through Care Everywhere. * Vaginal Yeast Infection (Uruguayan) documented in this [id number] History of Present illness Narrative* Lazara Jon DO - 08/17/2022 7:05 PM EST PATIENT NAME: Melissa Kaur [facility]: [address] [facility] [id number] DATE OF VISIT: 08/17/2022 DATE OF : [...] (36.5 C) (Tympanic) Resp 16 Ht 5' 3" Wt 87.5 kg (193 lb) LMP 07/17/2022 [...] it is wet prep. Patient uses the [facility] system and will look for her results there. We will call her additionally, if there are positive test that needed a change in treatment plan. Lazara Jon 08/17/2022 documented in this [id number] History of Present illness Narrative* father is [...] when manic * ros * no cp -[facility] Work Phone: [phone]) 325-302307-13-2022 History of Present illness NarrativePatient is a 26-year-old who comes in for a test of cure for trichomoniasis. Patient was here last week for test of cure for chlamydia. Patient reports that her partner has been treated and they havenot engaged in coitus since her diagnosis. 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 Patient reports she has not been [...] She reports that she has recently started [employer] Work Phone: [phone]) 461-935807-09-2021 History of Present illness Narrative* Patient is [...] cutting.She is following with Dr Jackson at [facility] and seeing her counselor. She is currently [...] po bid and metformin 1000mg po bid. [facility] Work Phone: [phone]) [phone] History of Past illness Narrative* Problem Noted Date Diagnosed Date Resolved Date Polyhydramnios 01/01/2017 07/11/2023 Threatened premature labor in third trimester 12/27/19 17 07/11/2023 Overview: December 26, 2016 Received betamethasone on 12/23 and 12/24/16. Piper Julian MD LGA (large for gestational age) infant 12/23/2016 07/11/2023 Overview: 12/23/16 - >95% Gestational proteinuria, third trimester 12/20/2016 07/11/2023 Overview: 12/20/16 - 24hr urine from [facility] on 12/13/16 was 323mg, BP & preE labs normal - KJ Gestational diabetes 12/20/2016 024 with care elsewhere, antepartum 12/12/2016 07/11/2023 Overview: 12/12/2016Patient is transferring care from [facility]. She states she has moved from [place] to [place] and wishes to be seen here.There is some notations by her previous doctor of non-compliance issues with keeping appointments and diabetic diet/Insulin dosages. She states she was seen at the [facility] 11/18 for decreased movement and then again about the 3rd week of October for threatened PTL. She states she was given Brethine in the hospital and sent home on no medications. She was last seen by her OB in [place] yesterday for [place] contractions. She denies any bleeding or LOF. Baby has been active. Some [place] contractions occasionally. Discussed with Dr Schulte and patient advised to monitor pain. If increases to call/come in. Kick counts discussed. TKRN Pre-existing type 2 diabetes mellitus in in third trimester 12/12/2016 07/11/2023 Overview: 12/23/16 - admitted to [facility] for glucoregulation, likely will need delivery at 37 weeks - KJ 12/12/2016 She is a Type 2 diabetic and started Insulin during the .Last HGB A1c 6.9 on 11/14/2016.She sees an plsql developer, Dr Asif. Her records have been faxed here during the visit and are sent to [address] Gramajo review. TKRN January 14, 2017 EFW is approx 95%. Monitor closely, consider early delivery per MFM. Piper Julian MD documented as of this encounter (statuses as of 08/19/2023) [facility] Diagnosis Yeast vaginitis- Primary Late menses Other disorder of menstruation and other abnormal bleeding from female genital tract Vaginal discharge Leukorrhea, not specified as infective [facility] Diagnosis Hyperglycemia due to diabetes mellitus (CMS/HCC) documented in this encounter [facility] Work Phone: Evaluation note* Diagnosis Exercise-induced asthma- Primary Exercise induced bronchospasm Hyperglycemia due to diabetes mellitus (CMS/HCC) documented in this encounter [facility] Work Phone: Evaluation note* Diagnosis Hyperglycemia due to diabetes mellitus (CMS/HCC) documented in this encounter [facility] Work Phone: Evaluation note* Diagnosis Necrobiosis lipoidica- Primary Degenerative skin disorder Hyperglycemia due to diabetes mellitus (CMS/HCC) documented in this encounter [facility] Work Phone: Evaluation note* Diagnosis Pain, dental- Primary Unspecified disorder of the teeth and supporting structures documented [facility] this encounter [facility]* Diagnosis Sebaceous cyst- Primary Hyperglycemia due to diabetes mellitus (CMS/HCC) Exercise-induced asthma Exercise induced bronchospasm documented in this encounter [facility] Work Phone: Evaluation note* Diagnosis Urinary tract infection in mother during first trimester of ([facility]-HCC)- Primary Herpes simplex vulvovaginitis documented in this encounter [facility] Work Phone: Evaluation note* Diagnosis Bacterial vaginosis- Primary Unspecified vaginitis and vulvovaginitis Less than 8 weeks gestation of ([facility] documented in this encounter [facility] Work Phone: Evaluation note* Diagnosis Type 2 diabetes mellitus complicating , antepartum, first trimester- Primary Insulin controlled gestational diabetes mellitus (GDM) in first trimester High-risk , first trimester documented [facility]* Diagnosis Bipolar depression (Multi)- Primary Bipolar I disorder, most recent episode (or current) depressed, unspecified Hyperglycemia due to diabetes mellitus (Multi) Cigarette nicotine dependence with other nicotine-induced disorder documented in this encounter [facility] Work Phone: Evaluation note* Diagnosis [...] of the cervix documented [facility] this [facility]* Diagnosis Insulin controlled gestational diabetes mellitus (GDM) in first trimester documented in this encounter [facility]* Diagnosis Bacterial vaginosis- Primary Vaginitis and vulvovaginitis, unspecified documented in this encounter [facility]* Diagnosis Insulin controlled gestational diabetes mellitus (GDM) in first trimester documented in this encounter [facility]* Diagnosis Necrobiosis lipoidica- Primary Degenerative skin disorder Hyperglycemia due to diabetes mellitus (Multi) documented in this encounter [facility] Work Phone: Evaluation note* Diagnosis Abdominal pain during in first trimester ([facility]CC)- Primary documented in this encounter [facility] Work Phone: Evaluation note* Diagnosis Exercise-induced asthma ([facility]-HCC)- Primary Exercise induced bronchospasm Hyperglycemia due to diabetes mellitus (Multi) Bipolar depression (Multi) Bipolar I disorder, most recent episode (or current) depressed, unspecified Necrobiosis lipoidica Degenerative skin disorder documented in this encounter [facility] Work Phone: Evaluation note* Diagnosis [...] of unspecified chromosome documented in this encounter [facility]* Diagnosis Insulin controlled gestational diabetes mellitus (GDM) in first trimester documented in this encounter [facility]* Diagnosis Insulin controlled gestational diabetes mellitus (GDM) in first trimester documented in this encounter [facility]* Diagnosis Insulin controlled gestational diabetes mellitus (GDM) in first trimester documented in this encounter [facility]* Diagnosis Encounter for screening for malformation using ultrasound- Primary 13 weeks gestation of state, incidental documented in this encounter [facility] note* Diagnosis H/O macrosomia in in prior , currently with other poor obstetric history Pre-existing type 2 diabetes mellitus in in first trimester Diabetes mellitus of mother, complicating , childbirth, or the puerperium, unspecified as to episode of care History of pre-eclampsia Personal history of other genital system and obstetric disorders documented in this encounter [facility] note* Diagnosis Pre-existing type 2 diabetes mellitus in in second trimester- Primary Diabetes mellitus of mother, complicating , childbirth, or the puerperium, unspecified as to episode of care documented in this encounter [facility] note* Diagnosis Influenza A- Primary Influenza with other respiratory manifestations documented in this encounter [facility] Work Phone: Evaluation note* Diagnosis [...] at 32 weeks documented in this encounter [facility] note* Diagnosis Pre-existing type 2 diabetes [...] in first trimester [facility]* Diagnosis Pre-existing type 2 diabetes mellitus [...] in first trimester documented in this encounter [facility]* Diagnosis Pre-existing type 2 diabetes mellitus [...] vulva and perineum [facility] Diagnosis Pre-existing type 2 diabetes mellitus [...] , second trimester documented in this encounter [facility]* Diagnosis Pre-existing type 2 diabetes mellitus [...] for anatomic survey documented in this encounter [facility] note* Diagnosis Pre-existing type 2 diabetes [...] currently Monthly growth assessment, measuring 11[facility]ile at [facility] today * Assessment & Plan Note - Pooja Latham MD - 08/10/2024 9:40 AM ESTAssociated Problem(s): Obesity affecting in first trimester TWG around 13 lbs from chart review documented in this encounter [facility] note* Diagnosis Pre-existing type 2 diabetes [...] OB DIP B/O documented in this encounter [facility] note* Diagnosis Pre-existing type 2 diabetes [...] for anatomic survey documented in this encounter [facility] note* Diagnosis Pre-existing type 2 diabetes [...] in first trimester documented in this encounter [facility]* Diagnosis Pre-existing type 2 diabetes mellitus [...] in first trimester documented [facility]* Diagnosis Pre-existing type 2 diabetes mellitus [...] 1 [O35.9XX1]- Primary documented [facility] this [facility]* Diagnosis Pre-existing type 2 diabetes mellitus in in first trimester (HCC)- Primary Diabetes mellitus of mother, complicating , childbirth, or the puerperium, unspecified as to episode of care History of pre-eclampsia Personal history of other genital system and obstetric disorders H/O macrosomia in infant in prior , currently (HCC) with other poor obstetric history 17 weeks gestation of ([facility]) state, incidental Encounter for screening for malformation using ultrasound ([facility]) Obesity affecting in first trimester, unspecified obesity type (HCC)- Primary Herpes simplex type 2 (HSV-2) infection affecting , antepartum, unspecified trimester (HCC) Pre-existing type 2 diabetes mellitus in in first trimester (HCC) Diabetes mellitus of mother, complicating , childbirth, or the puerperium, unspecified as to episode of care 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 Encounter for supervision of high risk in first trimester, antepartum ([facility]) 21 weeks gestation of ([facility]) state, incidental Pre-existing type 2 diabetes mellitus in in first trimester ([facility])- Primary Diabetes mellitus of mother, complicating , childbirth, or the puerperium, unspecified as to episode of care Obesity affecting in first trimester, unspecified obesity type ([facility]) History of pre-eclampsia Personal history of other genital system and obstetric disorders H/O macrosomia in infant in prior , currently ([facility]) with other poor obstetric history History of bipolar disorder Personal history of affective disorder 21 weeks gestation of ([facility]) state, incidental Encounter for anatomic survey ([facility]) Encounter for anatomic survey Pre-existing type 2 diabetes mellitus in in first trimester ([facility])- Primary Diabetes mellitus of mother, complicating , childbirth, or the puerperium, unspecified as to episode of care Obesity affecting in first trimester, unspecified obesity type ([facility]) [facility] Diagnosis Exercise-induced asthma Exercise induced bronchospasm Bipolar depression (Multi) Bipolar I disorder, most recent episode (or current) depressed, unspecified documented in this encounter [facility] Work Phone: Evaluation note* Diagnosis Pre-existing type 2 diabetes mellitus in in first trimester ([facility])- Primary Diabetes mellitus of mother, complicating , childbirth, or the puerperium, unspecified as to episode of care History of pre-eclampsia Personal history of other genital system and obstetric disorders H/O macrosomia in in prior , currently ([facility]) with other poor obstetric history 17 weeks gestation of ([facility]) state, incidental Encounter for screening for malformation using ultrasound ([facility]) Obesity affecting in first trimester, unspecified obesity type ([facility])- Primary Herpes simplex type 2 (HSV-2) infection affecting , antepartum, unspecified trimester ([facility]) Pre-existing type 2 diabetes mellitus in in first trimester ([facility]) Diabetes mellitus of mother, complicating , childbirth, or the puerperium, unspecified as to episode of care 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 Encounter for supervision of high risk in first trimester, antepartum ([facility]) 21 weeks gestation of ([facility]) state, incidental Pre-existing type 2 diabetes mellitus in in first trimester ([facility])- Primary Diabetes mellitus of mother, complicating , childbirth, or the puerperium, unspecified as to episode of care Obesity affecting in first trimester, unspecified obesity type ([facility]) History of pre-eclampsia Personal history of other genital system and obstetric disorders H/O macrosomia in in prior , currently ([facility]) with other poor obstetric history History of bipolar disorder Personal history of affective disorder 21 weeks gestation of ([facility]) state, incidental Encounter for anatomic survey ([facility]) Encounter for anatomic survey with uncertain dates in first trimester ([facility]) documented [facility] this encounter [facility]* Diagnosis Pre-existing type 2 diabetes mellitus in in first trimester ([facility])- Primary Diabetes mellitus of mother, complicating , childbirth, or the puerperium, unspecified as to episode of care History of pre-eclampsia Personal history of other genital system and obstetric disorders H/O macrosomia in in prior , currently ([facility]) with other poor obstetric history 17 weeks gestation of ([facility]) state, incidental Encounter for screening for malformation using ultrasound ([facility]) Obesity affecting in first trimester, unspecified obesity type ([facility])- Primary Herpes simplex type 2 (HSV-2) infection affecting , antepartum, unspecified trimester ([facility]) Pre-existing type 2 diabetes mellitus in in first trimester ([facility]) Diabetes mellitus of mother, complicating , childbirth, or the puerperium, unspecified as to episode of care 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 Encounter for supervision of high risk in first trimester, antepartum ([facility]) 21 weeks gestation of ([facility]) state, incidental Pre-existing type 2 diabetes mellitus in in first trimester ([facility])- Primary Diabetes mellitus of mother, complicating , childbirth, or the puerperium, unspecified as to episode of care Obesity affecting in first trimester, unspecified obesity type ([facility]) History of pre-eclampsia Personal history of other genital system and obstetric disorders H/O macrosomia in infant in prior , currently ([facility]) with other poor obstetric history History of bipolar disorder Personal history of affective disorder 21 weeks gestation of ([facility]) state, incidental Encounter for anatomic survey ([facility]) Encounter for anatomic survey complication before ([facility])- Primary Other specified complication, antepartum [facility] Diagnosis Pre-existing type 2 diabetes mellitus in in first trimester ([facility])- Primary Diabetes mellitus of mother, complicating , childbirth, or the puerperium, unspecified as to episode of care History of pre-eclampsia Personal history of other genital system and obstetric disorders H/O macrosomia in infant in prior , currently ([facility]) with other poor obstetric history 17 weeks gestation of ([facility]) state, incidental Encounter for screening for malformation using ultrasound ([facility]) Obesity affecting in first trimester, unspecified obesity type ([facility])- Primary Herpes simplex type 2 (HSV-2) infection affecting , antepartum, unspecified trimester ([facility]) Pre-existing type 2 diabetes mellitus in in first trimester ([facility]) Diabetes mellitus of mother, complicating , childbirth, or the puerperium, unspecified as to episode of care 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 Encounter for supervision of high risk in first trimester, antepartum ([facility]) 21 weeks gestation of ([facility]) state, incidental Pre-existing type 2 diabetes mellitus in in first trimester ([facility])- Primary Diabetes mellitus of mother, complicating , childbirth, or the puerperium, unspecified as to episode of care Obesity affecting in first trimester, unspecified obesity type ([facility]) History of pre-eclampsia Personal history of other genital system and obstetric disorders H/O macrosomia in infant in prior , currently ([facility]) with other poor obstetric history History of bipolar disorder Personal history of affective disorder 21 weeks gestation of ([facility]) state, incidental Encounter for anatomic survey ([facility]) Encounter for anatomic survey Screening for diabetes mellitus- Primary Obesity affecting in first trimester, unspecified obesity type ([facility]) Pre-existing type 2 diabetes mellitus in in first trimester ([facility]) Diabetes mellitus of mother, complicating , childbirth, or the puerperium, unspecified as to episode of care Herpes simplex type 2 (HSV-2) infection affecting , antepartum, unspecified trimester ([facility]) 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 Encounter for supervision of high risk in first trimester, antepartum ([facility]) 25 weeks gestation of ([facility]) state, incidental documented in this [facility] Diagnosis Pre-existing type 2 diabetes mellitus in in first trimester ([facility])- Primary Diabetes mellitus of mother, complicating , childbirth, or the puerperium, unspecified as to episode of care History of pre-eclampsia Personal history of other genital system and obstetric disorders H/O macrosomia in infant in prior , currently ([facility]) with other poor obstetric history 17 weeks gestation of ([facility]) state, incidental Encounter for screening for malformation using ultrasound ([facility]) Obesity affecting in first trimester, unspecified obesity type ([facility])- Primary Herpes simplex type 2 (HSV-2) infection affecting , antepartum, unspecified trimester ([facility]) Pre-existing type 2 diabetes mellitus in in first trimester ([facility]) Diabetes mellitus of mother, complicating , childbirth, or the puerperium, unspecified as to episode of care 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 Encounter for supervision of high risk in first trimester, antepartum ([facility]) 21 weeks gestation of ([facility]) state, incidental Pre-existing type 2 diabetes mellitus in in first trimester ([facility])- Primary Diabetes mellitus of mother, complicating , childbirth, or the puerperium, unspecified as to episode of care Obesity affecting in first trimester, unspecified obesity type ([facility]) History of pre-eclampsia Personal history of other genital system and obstetric disorders H/O macrosomia in in prior , currently ([facility]LY [facility]) with other poor obstetric history History of bipolar disorder Personal history of affective disorder 21 weeks gestation of ([facility]) state, incidental Encounter for anatomic survey ([facility]) Encounter for anatomic survey Type 2 diabetes mellitus during , antepartum, third trimester ([facility] Primary Insulin controlled gestational diabetes mellitus (GDM) in first trimester ([facility]) High-risk , third trimester ([facility]) [facility] Diagnosis Pre-existing type 2 diabetes mellitus in in first trimester ([facility])- Primary Diabetes mellitus of mother, complicating , childbirth, or the puerperium, unspecified as to episode of care History of pre-eclampsia Personal history of other genital system and obstetric disorders H/O macrosomia in infant in prior , currently ([facility]) with other poor obstetric history 17 weeks gestation of ([facility]) state, incidental Encounter for screening for malformation using ultrasound ([facility]) Obesity affecting in first trimester, unspecified obesity type ([facility])- Primary Herpes simplex type 2 (HSV-2) infection affecting , antepartum, unspecified trimester ([facility]) Pre-existing type 2 diabetes mellitus in in first trimester ([facility]) Diabetes mellitus of mother, complicating , childbirth, or the puerperium, unspecified as to episode of care 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 Encounter for supervision of high risk in first trimester, antepartum ([facility]) 21 weeks gestation of ([facility]) state, incidental Pre-existing type 2 diabetes mellitus in in first trimester ([facility])- Primary Diabetes mellitus of mother, complicating , childbirth, or the puerperium, unspecified as to episode of care Obesity affecting in first trimester, unspecified obesity type ([facility]) History of pre-eclampsia Personal history of other genital system and obstetric disorders H/O macrosomia in infant in prior , currently ([facility]) with other poor obstetric history History of bipolar disorder Personal history of affective disorder 21 weeks gestation of ([facility]) state, incidental Encounter for anatomic survey ([facility]) Encounter for anatomic survey Procedure not carried out- Primary Procedure not carried out for other reasons Supervision of high risk in second trimester ([facility])- Primary Unspecified high-risk 27 weeks gestation of ([facility]) state, incidental Burning with urination Dysuria Vaginal discharge Leukorrhea, not specified as infective documented in this encounter [facility] noteNo assessment information availableWKindred [facility] Work Phone: Evaluation note* Diagnosis Pre-existing type 2 diabetes mellitus in in first trimester ([facility])- Primary Diabetes mellitus of mother, complicating , childbirth, or the puerperium, unspecified as to episode of care History of pre-eclampsia Personal history of other genital system and obstetric disorders H/O macrosomia in infant in prior , currently ([facility]) with other poor obstetric history 17 weeks gestation of ([facility]) state, incidental Encounter for screening for malformation using ultrasound ([facility]) Obesity affecting in first trimester, unspecified obesity type ([facility])- Primary Herpes simplex type 2 (HSV-2) infection affecting , antepartum, unspecified trimester ([facility]) Pre-existing type 2 diabetes mellitus in in first trimester ([facility]) Diabetes mellitus of mother, complicating , childbirth, or the puerperium, unspecified as to episode of care 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 Encounter for supervision of high risk in first trimester, antepartum ([facility]) 21 weeks gestation of ([facility]) state, incidental Pre-existing type 2 diabetes mellitus in in first trimester ([facility])- Primary Diabetes mellitus of mother, complicating , childbirth, or the puerperium, unspecified as to episode of care Obesity affecting in first trimester, unspecified obesity type ([facility]) History of pre-eclampsia Personal history of other genital system and obstetric disorders H/O macrosomia in infant in prior , currently ([facility]) with other poor obstetric history History of bipolar disorder Personal history of affective disorder 21 weeks gestation of ([facility]) state, incidental Encounter for anatomic survey ([facility]) Encounter for anatomic survey Supervision of high risk in second trimester ([facility])- Primary Unspecified high-risk 27 weeks gestation of ([facility]) state, incidental Burning with urination Dysuria Vaginal discharge Leukorrhea, not specified as infective HSV (herpes simplex virus) infection Herpes simplex without mention of complication documented [facility] this encounter [facility]* Diagnosis Pre-existing type 2 diabetes mellitus in in first trimester ([facility])- Primary Diabetes mellitus of mother, complicating , childbirth, or the puerperium, unspecified as to episode of care History of pre-eclampsia Personal history of other genital system and obstetric disorders H/O macrosomia in in prior , currently ([facility]) with other poor obstetric history 17 weeks gestation of ([facility]) state, incidental Encounter for screening for malformation using ultrasound ([facility]) Obesity affecting in first trimester, unspecified obesity type ([facility])- Primary Herpes simplex type 2 (HSV-2) infection affecting , antepartum, unspecified trimester ([facility]) Pre-existing type 2 diabetes mellitus in in first trimester ([facility]) Diabetes mellitus of mother, complicating , childbirth, or the puerperium, unspecified as to episode of care 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 Encounter for supervision of high risk in first trimester, antepartum ([facility]) 21 weeks gestation of ([facility]) state, incidental Pre-existing type 2 diabetes mellitus in in first trimester ([facility])- Primary Diabetes mellitus of mother, complicating , childbirth, or the puerperium, unspecified as to episode of care Obesity affecting in first trimester, unspecified obesity type ([facility]) History of pre-eclampsia Personal history of other genital system and obstetric disorders H/O macrosomia in in prior , currently ([facility]) with other poor obstetric history History of bipolar disorder Personal history of affective disorder 21 weeks gestation of ([facility]) state, incidental Encounter for anatomic survey ([facility]) Encounter for anatomic survey BV (bacterial vaginosis)- Primary Vaginitis and vulvovaginitis, unspecified documented in this encounter [facility]* Diagnosis Pre-existing type 2 diabetes mellitus in in first trimester ([facility])- Primary Diabetes mellitus of mother, complicating , childbirth, or the puerperium, unspecified as to episode of care History of pre-eclampsia Personal history of other genital system and obstetric disorders H/O macrosomia in in prior , currently ([facility]) with other poor obstetric history 17 weeks gestation of ([facility]) state, incidental Encounter for screening for malformation using ultrasound ([facility]) Obesity affecting in first trimester, unspecified obesity type ([facility])- Primary Herpes simplex type 2 (HSV-2) infection affecting , antepartum, unspecified trimester ([facility]) Pre-existing type 2 diabetes mellitus in in first trimester ([facility]) Diabetes mellitus of mother, complicating , childbirth, or the puerperium, unspecified as to episode of care 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 Encounter for supervision of high risk in first trimester, antepartum ([facility]) 21 weeks gestation of ([facility]) state, incidental Pre-existing type 2 diabetes mellitus in in first trimester ([facility])- Primary Diabetes mellitus of mother, complicating , childbirth, or the puerperium, unspecified as to episode of care Obesity affecting in first trimester, unspecified obesity type ([facility]) History of pre-eclampsia Personal history of other genital system and obstetric disorders H/O macrosomia in infant in prior , currently ([facility]) with other poor obstetric history History of bipolar disorder Personal history of affective disorder 21 weeks gestation of ([facility]) state, incidental Encounter for anatomic survey ([facility]) Encounter for anatomic survey Supervision of high risk in third trimester ([facility])- Primary Unspecified high-risk History of pre-eclampsia Personal history of other genital system and obstetric disorders 29 weeks gestation of ([facility]) state, incidental Pre-existing type 2 diabetes mellitus in in third trimester ([facility]) Diabetes mellitus of mother, complicating , childbirth, or the puerperium, unspecified as to episode of care 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 Pre-existing type 2 diabetes mellitus in in first trimester ([facility]) Diabetes mellitus of mother, complicating , childbirth, or the puerperium, unspecified as to episode of care Tobacco smoking complicating in first trimester ([facility]) Tobacco use disorder complicating , childbirth, or the puerperium, antepartum condition or complication History of recurrent UTI (urinary tract infection) Personal history of urinary (tract) infection 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, 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, 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 alf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 ([facility]) Herpes simplex type 2 (HSV-2) infection affecting , antepartum, unspecified trimester ([facility]) * Assessment & Plan Note - Piper [...] test this previous child had testing at [facility] * Assessment & Plan Note - [...] trimester (HCC) prophylaxis ordered, no outbreaks recently documented in this encounter [facility]* Diagnosis Pre-existing type 2 diabetes mellitus in in first trimester (HCC)- Primary Diabetes mellitus of mother, complicating , childbirth, or the puerperium, unspecified as to episode of care History of pre-eclampsia Personal history of other genital system and obstetric disorders H/O macrosomia in in prior , currently ([facility]) with other poor obstetric history 17 weeks gestation of ([facility]) state, incidental Encounter for screening for malformation using ultrasound ([facility]) Obesity affecting in first trimester, unspecified obesity type ([facility])- Primary Herpes simplex type 2 (HSV-2) infection affecting , antepartum, unspecified trimester ([facility]) Pre-existing type 2 diabetes mellitus in in first trimester ([facility]) Diabetes mellitus of mother, complicating , childbirth, or the puerperium, unspecified as to episode of care 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 Encounter for supervision of high risk in first trimester, antepartum ([facility]) 21 weeks gestation of ([facility]) state, incidental Pre-existing type 2 diabetes mellitus in in first trimester ([facility])- Primary Diabetes mellitus of mother, complicating , childbirth, or the puerperium, unspecified as to episode of care Obesity affecting in first trimester, unspecified obesity type ([facility]) History of pre-eclampsia Personal history of other genital system and obstetric disorders H/O macrosomia in infant in prior , currently ([facility]) with other poor obstetric history History of bipolar disorder Personal history of affective disorder 21 weeks gestation of ([facility]) state, incidental Encounter for anatomic survey ([facility]) Encounter for anatomic survey Supervision of high risk in third trimester ([facility])- Primary Unspecified high-risk History of pre-eclampsia Personal history of other genital system and obstetric disorders 29 weeks gestation of ([facility]) state, incidental Pre-existing type 2 diabetes mellitus in in third trimester ([facility]) Diabetes mellitus of mother, complicating , childbirth, or the puerperium, unspecified as to episode of care 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 Pre-existing type 2 diabetes mellitus in in first trimester ([facility]) Diabetes mellitus of mother, complicating , childbirth, or the puerperium, unspecified as to episode of care Tobacco smoking complicating in first trimester ([facility]) Tobacco use disorder complicating , childbirth, or the puerperium, antepartum condition or complication History of recurrent UTI (urinary tract infection) Personal history of urinary (tract) infection 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, 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, 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 alf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 ([facility]) Herpes simplex type 2 (HSV-2) infection affecting , antepartum, unspecified trimester ([facility]) Maternal care for (suspected) abnormality and damage, unspecified, fetus 1 ([facility] Primary [facility] in this [facility]* Diagnosis Pre-existing type 2 diabetes mellitus in in first trimester ([facility])- Primary Diabetes mellitus of mother, complicating , childbirth, or the puerperium, unspecified as to episode of care History of pre-eclampsia Personal history of other genital system and obstetric disorders H/O macrosomia in in prior , currently ([facility]) with other poor obstetric history 17 weeks gestation of ([facility]) state, incidental Encounter for screening for malformation using ultrasound ([facility]) Obesity affecting in first trimester, unspecified obesity type ([facility])- Primary Herpes simplex type 2 (HSV-2) infection affecting , antepartum, unspecified trimester ([facility]) Pre-existing type 2 diabetes mellitus in in first trimester ([facility]) Diabetes mellitus of mother, complicating , childbirth, or the puerperium, unspecified as to episode of care 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 Encounter for supervision of high risk in first trimester, antepartum ([facility]) 21 weeks gestation of ([facility]) state, incidental Pre-existing type 2 diabetes mellitus in in first trimester ([facility])- Primary Diabetes mellitus of mother, complicating , childbirth, or the puerperium, unspecified as to episode of care Obesity affecting in first trimester, unspecified obesity type ([facility]) History of pre-eclampsia Personal history of other genital system and obstetric disorders H/O macrosomia in infant in prior , currently ([facility]) with other poor obstetric history History of bipolar disorder Personal history of affective disorder 21 weeks gestation of ([facility]) state, incidental Encounter for anatomic survey ([facility]) Encounter for anatomic survey Supervision of high risk in third trimester ([facility])- Primary Unspecified high-risk History of pre-eclampsia Personal history of other genital system and obstetric disorders 29 weeks gestation of ([facility]) state, incidental Pre-existing type 2 diabetes mellitus in in third trimester ([facility]) Diabetes mellitus of mother, complicating , childbirth, or the puerperium, unspecified as to episode of care 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 Pre-existing type 2 diabetes mellitus in in first trimester ([facility]) Diabetes mellitus of mother, complicating , childbirth, or the puerperium, unspecified as to episode of care Tobacco smoking complicating in first trimester ([facility]) Tobacco use disorder complicating , childbirth, or the puerperium, antepartum condition or complication History of recurrent UTI (urinary tract infection) Personal history of urinary (tract) infection 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, 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, 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 alf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 ([facility]) Herpes simplex type 2 (HSV-2) infection affecting , antepartum, unspecified trimester ([facility]) Supervision of high risk in third trimester ([facility])- Primary Unspecified high-risk Pre-existing type 2 diabetes mellitus in in third trimester ([facility]) Diabetes mellitus of mother, complicating , childbirth, or the puerperium, unspecified as to episode of care Herpes simplex type 2 (HSV-2) infection affecting , antepartum, unspecified trimester ([facility]) H/O macrosomia in infant in prior , currently ([facility]) with other poor obstetric history History of pre-eclampsia Personal history of other genital system and obstetric disorders 31 weeks gestation of ([facility]) state, incidental * Assessment & Plan Note - Whit Morton MD - 10/18/2024 4:08 PM EDT Associated Problem(s): Herpes simplex type 2 (HSV-2) infection affecting , antepartum, unspecified trimester ([facility]) Taking acyclovir * Assessment & Plan Note - Whit Morton MD - 10/18/2024 4:08 PM EDT Associated Problem(s): H/O macrosomia in infant in prior , currently ([facility]) Growth us scheduled * Assessment & Plan Note - Whit Mroton MD - 10/18/2024 4:08 PM EDT Associated Problem(s): History of pre-eclampsia Continue ASA documented in this encounter [facility]* Diagnosis Pre-existing type 2 diabetes mellitus in in first trimester ([facility])- Primary Diabetes mellitus of mother, complicating , childbirth, or the puerperium, unspecified as to episode of care History of pre-eclampsia Personal history of other genital system and obstetric disorders H/O macrosomia in infant in prior , currently ([facility]) with other poor obstetric history 17 weeks gestation of ([facility]) state, incidental Encounter for screening for malformation using ultrasound ([facility]) Obesity affecting in first trimester, unspecified obesity type ([facility] Primary Herpes simplex type 2 (HSV-2) infection affecting , antepartum, unspecified trimester ([facility]) Pre-existing type 2 diabetes mellitus in in first trimester ([facility]) Diabetes mellitus of mother, complicating , childbirth, or the puerperium, unspecified as to episode of care 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 Encounter for supervision of high risk in first trimester, antepartum ([facility]) 21 weeks gestation of ([facility]) state, incidental Pre-existing type 2 diabetes mellitus in in first trimester ([facility])- Primary Diabetes mellitus of mother, complicating , childbirth, or the puerperium, unspecified as to episode of care Obesity affecting in first trimester, unspecified obesity type ([facility]) History of pre-eclampsia Personal history of other genital system and obstetric disorders H/O macrosomia in infant in prior , currently ([facility]) with other poor obstetric history History of bipolar disorder Personal history of affective disorder 21 weeks gestation of ([facility]) state, incidental Encounter for anatomic survey ([facility]) Encounter for anatomic survey Supervision of high risk in third trimester ([facility])- Primary Unspecified high-risk History of pre-eclampsia Personal history of other genital system and obstetric disorders 29 weeks gestation of ([facility]) state, incidental Pre-existing type 2 diabetes mellitus in in third trimester ([facility]) Diabetes mellitus of mother, complicating , childbirth, or the puerperium, unspecified as to episode of care 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 Pre-existing type 2 diabetes mellitus in in first trimester ([facility]) Diabetes mellitus of mother, complicating , childbirth, or the puerperium, unspecified as to episode of care Tobacco smoking complicating in first trimester ([facility]) Tobacco use disorder complicating , childbirth, or the puerperium, antepartum condition or complication History of recurrent UTI (urinary tract infection) Personal history of urinary (tract) infection 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, 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, 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 alf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 ([facility]) Herpes simplex type 2 (HSV-2) infection affecting , antepartum, unspecified trimester ([facility]) Supervision of high risk in third trimester ([facility] Primary Unspecified high-risk Pre-existing type 2 diabetes mellitus in in third trimester ([facility]) Diabetes mellitus of mother, complicating , childbirth, or the puerperium, unspecified as to episode of care Herpes simplex type 2 (HSV-2) infection affecting , antepartum, unspecified trimester ([facility]) H/O macrosomia in in prior , currently ([facility]) with other poor obstetric history History of pre-eclampsia Personal history of other genital system and obstetric disorders 31 weeks gestation of ([facility]) state, incidental Supervision of high risk in third trimester ([facility])- Primary Unspecified high-risk Pre-existing type 2 diabetes mellitus in in third trimester ([facility]) Diabetes mellitus of mother, complicating , childbirth, [...] METABOLIC PANEL; [facility] Diagnosis Pre-existing type 2 diabetes mellitus in in first trimester ([facility] Primary Diabetes mellitus of mother, complicating , childbirth, or the puerperium, unspecified as to episode of care History of pre-eclampsia Personal history of other genital system and obstetric disorders H/O macrosomia in infant in prior , currently ([facility]) with other poor obstetric history 17 weeks gestation of ([facility]) state, incidental Encounter for screening for malformation using ultrasound ([facility]) Obesity affecting in first trimester, unspecified obesity type ([facility] Primary Herpes simplex type 2 (HSV-2) infection affecting , antepartum, unspecified trimester ([facility]) Pre-existing type 2 diabetes mellitus in in first trimester ([facility]) Diabetes mellitus of mother, complicating , childbirth, or the puerperium, unspecified as to episode of care 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 Encounter for supervision of high risk in first trimester, antepartum ([facility]) 21 weeks gestation of ([facility]) state, incidental Pre-existing type 2 diabetes mellitus in in first trimester ([facility] Primary Diabetes mellitus of mother, complicating , childbirth, or the puerperium, unspecified as to episode of care Obesity affecting in first trimester, unspecified obesity type ([facility]) History of pre-eclampsia Personal history of other genital system and obstetric disorders H/O macrosomia in in prior , currently ([facility]) with other poor obstetric history History of bipolar disorder Personal history of affective disorder 21 weeks gestation of ([facility]) state, incidental Encounter for anatomic survey ([facility]) Encounter for anatomic survey Supervision of high risk in third trimester ([facility])- Primary Unspecified high-risk History of pre-eclampsia Personal history of other genital system and obstetric disorders 29 weeks gestation of ([facility]) state, incidental Pre-existing type 2 diabetes mellitus in in third trimester ([facility]) Diabetes mellitus of mother, complicating , childbirth, or the puerperium, unspecified as to episode of care 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 Pre-existing type 2 diabetes mellitus in in first trimester ([facility]) Diabetes mellitus of mother, complicating , childbirth, or the puerperium, unspecified as to episode of care Tobacco smoking complicating in first trimester ([facility]) Tobacco use disorder complicating , childbirth, or the puerperium, antepartum condition or complication History of recurrent UTI (urinary tract infection) Personal history of urinary (tract) infection 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, 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, 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 ([facility]) Herpes simplex type 2 (HSV-2) infection affecting , antepartum, unspecified trimester ([facility]) Supervision of high risk in third trimester ([facility])- Primary Unspecified high-risk Pre-existing type 2 diabetes mellitus in in third trimester ([facility]) Diabetes mellitus of mother, complicating , childbirth, or the puerperium, unspecified as to episode of care Herpes simplex type 2 (HSV-2) infection affecting , antepartum, unspecified trimester ([facility]) H/O macrosomia in infant in prior , currently ([facility]) with other poor obstetric history History of pre-eclampsia Personal history of other genital system and obstetric disorders 31 weeks gestation of ([facility]) state, incidental Supervision of high risk in third trimester ([facility])- Primary Unspecified high-risk Pre-existing type 2 diabetes mellitus in in third trimester ([facility]) Diabetes mellitus of mother, complicating , childbirth, or the puerperium, unspecified as to episode of care Exposure to parvovirus Contact with or exposure to other viral diseases History of pre-eclampsia Personal history of other genital system and obstetric disorders Pre-existing type 2 diabetes mellitus in in first trimester ([facility] Primary Diabetes mellitus of mother, complicating , childbirth, or the puerperium, unspecified as to episode of care Obesity affecting in first trimester, unspecified obesity type ([facility]) 33 weeks gestation of ([facility]) state, incidental Pre-existing type 2 diabetes mellitus in in third trimester ([facility] Primary Diabetes mellitus of mother, complicating , childbirth, or the puerperium, unspecified as to episode of care History of pre-eclampsia Personal history of other genital system and obstetric disorders H/O macrosomia in in prior , currently ([facility]) with other poor obstetric history 33 weeks gestation of ([facility]) state, incidental Request for sterilization Herpes simplex type 2 (HSV-2) infection affecting , antepartum, unspecified trimester ([facility]) [facility] Diagnosis Pre-existing type 2 diabetes mellitus in in first trimester ([facility] Primary Diabetes mellitus of mother, complicating , childbirth, or the puerperium, unspecified as to episode of care History of pre-eclampsia Personal history of other genital system and obstetric disorders H/O macrosomia in in prior , currently ([facility]) with other poor obstetric history 17 weeks gestation of ([facility]) state, incidental Encounter for screening for malformation using ultrasound ([facility]) Obesity affecting in first trimester, unspecified obesity type ([facility] Primary Herpes simplex type 2 (HSV-2) infection affecting , antepartum, unspecified trimester ([facility]) Pre-existing type 2 diabetes mellitus in in first trimester ([facility]) Diabetes mellitus of mother, complicating , childbirth, or the puerperium, unspecified as to episode of care 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 Encounter for supervision of high risk in first trimester, antepartum ([facility]) 21 weeks gestation of ([facility]) state, incidental Pre-existing type 2 diabetes mellitus in in first trimester ([facility] Primary Diabetes mellitus of mother, complicating , childbirth, or the puerperium, unspecified as to episode of care Obesity affecting in first trimester, unspecified obesity type ([facility]) History of pre-eclampsia Personal history of other genital system and obstetric disorders H/O macrosomia in infant in prior , currently ([facility]) with other poor obstetric history History of bipolar disorder Personal history of affective disorder 21 weeks gestation of ([facility]) state, incidental Encounter for anatomic survey ([facility]) Encounter for anatomic survey Supervision of high risk in third trimester ([facility])- Primary Unspecified high-risk History of pre-eclampsia Personal history of other genital system and obstetric disorders 29 weeks gestation of ([facility]) state, incidental Pre-existing type 2 diabetes mellitus in in third trimester ([facility]) Diabetes mellitus of mother, complicating , childbirth, or the puerperium, unspecified as to episode of care 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 Pre-existing type 2 diabetes mellitus in in first trimester ([facility]) Diabetes mellitus of mother, complicating , childbirth, or the puerperium, unspecified as to episode of care Tobacco smoking complicating in first trimester ([facility]) Tobacco use disorder complicating , childbirth, or the puerperium, antepartum condition or complication History of recurrent UTI (urinary tract infection) Personal history of urinary (tract) infection 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, 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, 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 alf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 ([facility]) Herpes simplex type 2 (HSV-2) infection affecting , antepartum, unspecified trimester ([facility]) Supervision of high risk in third trimester ([facility])- Primary Unspecified high-risk Pre-existing type 2 diabetes mellitus in in third trimester ([facility]) Diabetes mellitus of mother, complicating , childbirth, or the puerperium, unspecified as to episode of care Herpes simplex type 2 (HSV-2) infection affecting , antepartum, unspecified trimester ([facility]) H/O macrosomia in infant in prior , currently ([facility]) with other poor obstetric history History of pre-eclampsia Personal history of other genital system and obstetric disorders 31 weeks gestation of ([facility]) state, incidental Supervision of high risk in third trimester ([facility])- Primary Unspecified high-risk Pre-existing type 2 diabetes mellitus in in third trimester ([facility]) Diabetes mellitus of mother, complicating , childbirth, or the puerperium, unspecified as to episode of care Exposure to parvovirus Contact with or exposure to other viral diseases History of pre-eclampsia Personal history of other genital system and obstetric disorders Pre-existing type 2 diabetes mellitus in in third trimester ([facility] Primary Diabetes mellitus of mother, complicating , childbirth, or the puerperium, unspecified as to episode of care History of pre-eclampsia Personal history of other genital system and obstetric disorders H/O macrosomia in in prior , currently ([facility]) with other poor obstetric history 33 weeks gestation of ([facility]) state, incidental Request for sterilization Herpes simplex type 2 (HSV-2) infection affecting , antepartum, unspecified trimester ([facility]) * Assessment & Plan Note - William [...] in prior , currently ([facility]) EFW on growth US shows AGA and expected to be smaller than 1st baby. Growth US with MFM today. Orders: URINE OB DIP B/O * Assessment & Plan Note - William Gramajo MD - 11/02/2024 11:08 AM EDTAssociated Problem(s): Herpes simplex type 2 (HSV-2) infection affecting , antepartum, unspecified trimester ([facility]) On acyclovir prophylaxis [facility] Diagnosis Pre-existing type 2 diabetes mellitus in in first trimester ([facility] Primary Diabetes mellitus of mother, complicating , childbirth, or the puerperium, unspecified as to episode of care History of pre-eclampsia Personal history of other genital system and obstetric disorders H/O macrosomia in infant in prior , currently ([facility]) with other poor obstetric history 17 weeks gestation of ([facility]) state, incidental Encounter for screening for malformation using ultrasound ([facility]) Obesity affecting in first trimester, unspecified obesity type ([facility] Primary Herpes simplex type 2 (HSV-2) infection affecting , antepartum, unspecified trimester ([facility]) Pre-existing type 2 diabetes mellitus in in first trimester ([facility]) Diabetes mellitus of mother, complicating , childbirth, or the puerperium, unspecified as to episode of care 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 Encounter for supervision of high risk in first trimester, antepartum ([facility]) 21 weeks gestation of ([facility]) state, incidental Pre-existing type 2 diabetes mellitus in in first trimester ([facility] Primary Diabetes mellitus of mother, complicating , childbirth, or the puerperium, unspecified as to episode of care Obesity affecting in first trimester, unspecified obesity type ([facility]) History of pre-eclampsia Personal history of other genital system and obstetric disorders H/O macrosomia in infant in prior , currently ([facility]) with other poor obstetric history History of bipolar disorder Personal history of affective disorder 21 weeks gestation of ([facility]) state, incidental Encounter for anatomic survey ([facility]) Encounter for anatomic survey Supervision of high risk in third trimester ([facility] Primary Unspecified high-risk History of pre-eclampsia Personal history of other genital system and obstetric disorders 29 weeks gestation of ([facility]) state, incidental Pre-existing type 2 diabetes mellitus in in third trimester ([facility]) Diabetes mellitus of mother, complicating , childbirth, or the puerperium, unspecified as to episode of care 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 Pre-existing type 2 diabetes mellitus in in first trimester ([facility]) Diabetes mellitus of mother, complicating , childbirth, or the puerperium, unspecified as to episode of care Tobacco smoking complicating in first trimester ([facility]) Tobacco use disorder complicating , childbirth, or the puerperium, antepartum condition or complication History of recurrent UTI (urinary tract infection) Personal history of urinary (tract) infection 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, 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, 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 alf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 ([facility]) Herpes simplex type 2 (HSV-2) infection affecting , antepartum, unspecified trimester ([facility]) Supervision of high risk in third trimester ([facility] Primary Unspecified high-risk Pre-existing type 2 diabetes mellitus in in third trimester ([facility]) Diabetes mellitus of mother, complicating , childbirth, or the puerperium, unspecified as to episode of care Herpes simplex type 2 (HSV-2) infection affecting , antepartum, unspecified trimester ([facility]) H/O macrosomia in in prior , currently ([facility]) with other poor obstetric history History of pre-eclampsia Personal history of other genital system and obstetric disorders 31 weeks gestation of ([facility]) state, incidental Supervision of high risk in third trimester ([facility] Primary Unspecified high-risk Pre-existing type 2 diabetes mellitus in in third trimester ([facility]) Diabetes mellitus of mother, complicating , childbirth, or the puerperium, unspecified as to episode of care Exposure to parvovirus Contact with or exposure to other viral diseases History of pre-eclampsia Personal history of other genital system and obstetric disorders Pre-existing type 2 diabetes mellitus in in third trimester ([facility] Primary Diabetes mellitus of mother, complicating , childbirth, or the puerperium, unspecified as to episode of care History of pre-eclampsia Personal history of other genital system and obstetric disorders H/O macrosomia in infant in prior , currently ([facility]) with other poor obstetric history 33 weeks gestation of ([facility]) state, incidental Request for sterilization Herpes simplex type 2 (HSV-2) infection affecting , antepartum, unspecified trimester ([facility]) Type 2 diabetes mellitus affecting in third trimester, antepartum ([facility] Primary High-risk , third trimester ([facility]) documented in this encounter [facility] note* Diagnosis Pre-existing type 2 diabetes mellitus in in first trimester ([facility] Primary Diabetes mellitus of mother, complicating , childbirth, or the puerperium, unspecified as to episode of care History of pre-eclampsia Personal history of other genital system and obstetric disorders H/O macrosomia in infant in prior , currently ([facility]) with other poor obstetric history 17 weeks gestation of ([facility]) state, incidental Encounter for screening for malformation using ultrasound ([facility]) Obesity affecting in first trimester, unspecified obesity type ([facility] Primary Herpes simplex type 2 (HSV-2) infection affecting , antepartum, unspecified trimester ([facility]) Pre-existing type 2 diabetes mellitus in in first trimester ([facility]) Diabetes mellitus of mother, complicating , childbirth, or the puerperium, unspecified as to episode of care 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 Encounter for supervision of high risk in first trimester, antepartum ([facility]) 21 weeks gestation of ([facility]) state, incidental Pre-existing type 2 diabetes mellitus in in first trimester ([facility] Primary Diabetes mellitus of mother, complicating , childbirth, or the puerperium, unspecified as to episode of care Obesity affecting in first trimester, unspecified obesity type ([facility]) History of pre-eclampsia Personal history of other genital system and obstetric disorders H/O macrosomia in infant in prior , currently ([facility]) with other poor obstetric history History of bipolar disorder Personal history of affective disorder 21 weeks gestation of ([facility]) state, incidental Encounter for anatomic survey ([facility]) Encounter for anatomic survey Supervision of high risk in third trimester ([facility] Primary Unspecified high-risk History of pre-eclampsia Personal history of other genital system and obstetric disorders 29 weeks gestation of ([facility]) state, incidental Pre-existing type 2 diabetes mellitus in in third trimester ([facility]) Diabetes mellitus of mother, complicating , childbirth, or the puerperium, unspecified as to episode of care 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 Pre-existing type 2 diabetes mellitus in in first trimester ([facility]) Diabetes mellitus of mother, complicating , childbirth, or the puerperium, unspecified as to episode of care Tobacco smoking complicating in first trimester ([facility]) Tobacco use disorder complicating , childbirth, or the puerperium, antepartum condition or complication History of recurrent UTI (urinary tract infection) Personal history of urinary (tract) infection 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, 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, 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 ([facility]) Herpes simplex type 2 (HSV-2) infection affecting , antepartum, unspecified trimester ([facility]) Supervision of high risk in third trimester ([facility] Primary Unspecified high-risk Pre-existing type 2 diabetes mellitus in in third trimester ([facility]) Diabetes mellitus of mother, complicating , childbirth, or the puerperium, unspecified as to episode of care Herpes simplex type 2 (HSV-2) infection affecting , antepartum, unspecified trimester ([facility]) H/O macrosomia in in prior , currently ([facility]) with other poor obstetric history History of pre-eclampsia Personal history of other genital system and obstetric disorders 31 weeks gestation of ([facility]) state, incidental Supervision of high risk in third trimester ([facility] Primary Unspecified high-risk Pre-existing type 2 diabetes mellitus in in third trimester ([facility]) Diabetes mellitus of mother, complicating , childbirth, or the puerperium, unspecified as to episode of care Exposure to parvovirus Contact with or exposure to other viral diseases History of pre-eclampsia Personal history of other genital system and obstetric disorders Pre-existing type 2 diabetes mellitus in in third trimester ([facility] Primary Diabetes mellitus of mother, complicating , childbirth, or the puerperium, unspecified as to episode of care History of pre-eclampsia Personal history of other genital system and obstetric disorders H/O macrosomia in infant in prior , currently ([facility]) with other poor obstetric history 33 weeks gestation of ([facility]) state, incidental Request for sterilization Herpes simplex type 2 (HSV-2) infection affecting , antepartum, unspecified trimester ([facility]) Type 2 diabetes mellitus during , antepartum, third trimester ([facility] Primary documented in this encounter [facility] note* Diagnosis Pre-existing type 2 diabetes mellitus in in first trimester ([facility] Primary Diabetes mellitus of mother, complicating , childbirth, or the puerperium, unspecified as to episode of care History of pre-eclampsia Personal history of other genital system and obstetric disorders H/O macrosomia in in prior , currently ([facility]) with other poor obstetric history 17 weeks gestation of ([facility]) state, incidental Encounter for screening for malformation using ultrasound ([facility]) Obesity affecting in first trimester, unspecified obesity type ([facility] Primary Herpes simplex type 2 (HSV-2) infection affecting , antepartum, unspecified trimester ([facility]) Pre-existing type 2 diabetes mellitus in in first trimester ([facility]) Diabetes mellitus of mother, complicating , childbirth, or the puerperium, unspecified as to episode of care 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 Encounter for supervision of high risk in first trimester, antepartum ([facility]) 21 weeks gestation of ([facility]) state, incidental Pre-existing type 2 diabetes mellitus in in first trimester ([facility] Primary Diabetes mellitus of mother, complicating , childbirth, or the puerperium, unspecified as to episode of care Obesity affecting in first trimester, unspecified obesity type ([facility]) History of pre-eclampsia Personal history of other genital system and obstetric disorders H/O macrosomia in in prior , currently ([facility]) with other poor obstetric history History of bipolar disorder Personal history of affective disorder 21 weeks gestation of ([facility]) state, incidental Encounter for anatomic survey ([facility]) Encounter for anatomic survey Supervision of high risk in third trimester ([facility] Primary Unspecified high-risk History of pre-eclampsia Personal history of other genital system and obstetric disorders 29 weeks gestation of ([facility]) state, incidental Pre-existing type 2 diabetes mellitus in in third trimester ([facility]) Diabetes mellitus of mother, complicating , childbirth, or the puerperium, unspecified as to episode of care 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 Pre-existing type 2 diabetes mellitus in in first trimester ([facility]) Diabetes mellitus of mother, complicating , childbirth, or the puerperium, unspecified as to episode of care Tobacco smoking complicating in first trimester ([facility]) Tobacco use disorder complicating , childbirth, or the puerperium, antepartum condition or complication History of recurrent UTI (urinary tract infection) Personal history of urinary (tract) infection 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, 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, 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 ([facility]) Herpes simplex type 2 (HSV-2) infection affecting , antepartum, unspecified trimester ([facility]) Supervision of high risk in third trimester ([facility])- Primary Unspecified high-risk Pre-existing type 2 diabetes mellitus in in third trimester ([facility]) Diabetes mellitus of mother, complicating , childbirth, or the puerperium, unspecified as to episode of care Herpes simplex type 2 (HSV-2) infection affecting , antepartum, unspecified trimester ([facility]) H/O macrosomia in in prior , currently ([facility]) with other poor obstetric history History of pre-eclampsia Personal history of other genital system and obstetric disorders 31 weeks gestation of ([facility]) state, incidental Supervision of high risk in third trimester ([facility])- Primary Unspecified high-risk Pre-existing type 2 diabetes mellitus in in third trimester ([facility]) Diabetes mellitus of mother, complicating , childbirth, or the puerperium, unspecified as to episode of care Exposure to parvovirus Contact with or exposure to other viral diseases History of pre-eclampsia Personal history of other genital system and obstetric disorders Pre-existing type 2 diabetes mellitus in in third trimester ([facility] Primary Diabetes mellitus of mother, complicating , childbirth, or the puerperium, unspecified as to episode of care History of pre-eclampsia Personal history of other genital system and obstetric disorders H/O macrosomia in infant in prior , currently ([facility]) with other poor obstetric history 33 weeks gestation of ([facility]) state, incidental Request for sterilization Herpes simplex type 2 (HSV-2) infection affecting , antepartum, unspecified trimester ([facility]) complication before ([facility]) Other specified complication, antepartum documented in this encounter [facility] note* Diagnosis Pre-existing type 2 diabetes mellitus in in first trimester ([facility] Primary Diabetes mellitus of mother, complicating , childbirth, or the puerperium, unspecified as to episode of care History of pre-eclampsia Personal history of other genital system and obstetric disorders H/O macrosomia in in prior , currently ([facility]) with other poor obstetric history 17 weeks gestation of ([facility]) state, incidental Encounter for screening for malformation using ultrasound ([facility]) Obesity affecting in first trimester, unspecified obesity type ([facility] Primary Herpes simplex type 2 (HSV-2) infection affecting , antepartum, unspecified trimester ([facility]) Pre-existing type 2 diabetes mellitus in in first trimester ([facility]) Diabetes mellitus of mother, complicating , childbirth, or the puerperium, unspecified as to episode of care 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 Encounter for supervision of high risk in first trimester, antepartum ([facility]) 21 weeks gestation of ([facility]) state, incidental Pre-existing type 2 diabetes mellitus in in first trimester ([facility] Primary Diabetes mellitus of mother, complicating , childbirth, or the puerperium, unspecified as to episode of care Obesity affecting in first trimester, unspecified obesity type ([facility]) History of pre-eclampsia Personal history of other genital system and obstetric disorders H/O macrosomia in infant in prior , currently ([facility]) with other poor obstetric history History of bipolar disorder Personal history of affective disorder 21 weeks gestation of ([facility]) state, incidental Encounter for anatomic survey ([facility]) Encounter for anatomic survey Supervision of high risk in third trimester ([facility])- Primary Unspecified high-risk History of pre-eclampsia Personal history of other genital system and obstetric disorders 29 weeks gestation of ([facility]) state, incidental Pre-existing type 2 diabetes mellitus in in third trimester ([facility]) Diabetes mellitus of mother, complicating , childbirth, or the puerperium, unspecified as to episode of care 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 Pre-existing type 2 diabetes mellitus in in first trimester ([facility]) Diabetes mellitus of mother, complicating , childbirth, or the puerperium, unspecified as to episode of care Tobacco smoking complicating in first trimester ([facility]) Tobacco use disorder complicating , childbirth, or the puerperium, antepartum condition or complication History of recurrent UTI (urinary tract infection) Personal history of urinary (tract) infection 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, 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, 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 alf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 ([facility]) Herpes simplex type 2 (HSV-2) infection affecting , antepartum, unspecified trimester ([facility]) Supervision of high risk in third trimester ([facility])- Primary Unspecified high-risk Pre-existing type 2 diabetes mellitus in in third trimester ([facility]) Diabetes mellitus of mother, complicating , childbirth, or the puerperium, unspecified as to episode of care Herpes simplex type 2 (HSV-2) infection affecting , antepartum, unspecified trimester ([facility]) H/O macrosomia in in prior , currently ([facility]) with other poor obstetric history History of pre-eclampsia Personal history of other genital system and obstetric disorders 31 weeks gestation of ([facility]) state, incidental Supervision of high risk in third trimester ([facility])- Primary Unspecified high-risk Pre-existing type 2 diabetes mellitus in in third trimester ([facility]) Diabetes mellitus of mother, complicating , childbirth, or the puerperium, unspecified as to episode of care Exposure to parvovirus Contact with or exposure to other viral diseases History of pre-eclampsia Personal history of other genital system and obstetric disorders Pre-existing type 2 diabetes mellitus in in third trimester ([facility] Primary Diabetes mellitus of mother, complicating , childbirth, or the puerperium, unspecified as to episode of care History of pre-eclampsia Personal history of other genital system and obstetric disorders H/O macrosomia in in prior , currently ([facility]) with other poor obstetric history 33 weeks gestation of ([facility]) state, incidental Request for sterilization Herpes simplex type 2 (HSV-2) infection affecting , antepartum, unspecified trimester ([facility]) 33 weeks gestation of ([facility] Primary state, incidental complication before ([facility]) Other specified complication, antepartum Pre-existing type 2 diabetes mellitus in in third trimester ([facility]) Diabetes mellitus of mother, complicating , childbirth, or the puerperium, unspecified as to episode of care Supervision of high risk in third trimester ([facility]) Unspecified high-risk pruritus, third trimester ([facility]) documented in this encounter [facility] note* Diagnosis Pre-existing type 2 diabetes mellitus in in first trimester ([facility] Primary Diabetes mellitus of mother, complicating , childbirth, or the puerperium, unspecified as to episode of care History of pre-eclampsia Personal history of other genital system and obstetric disorders H/O macrosomia in in prior , currently ([facility]) with other poor obstetric history 17 weeks gestation of ([facility]) state, incidental Encounter for screening for malformation using ultrasound ([facility]) Obesity affecting in first trimester, unspecified obesity type ([facility] Primary Herpes simplex type 2 (HSV-2) infection affecting , antepartum, unspecified trimester ([facility]) Pre-existing type 2 diabetes mellitus in in first trimester ([facility]) Diabetes mellitus of mother, complicating , childbirth, or the puerperium, unspecified as to episode of care 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 Encounter for supervision of high risk in first trimester, antepartum ([facility]) 21 weeks gestation of ([facility]) state, incidental Pre-existing type 2 diabetes mellitus in in first trimester ([facility] Primary Diabetes mellitus of mother, complicating , childbirth, or the puerperium, unspecified as to episode of care Obesity affecting in first trimester, unspecified obesity type ([facility]) History of pre-eclampsia Personal history of other genital system and obstetric disorders H/O macrosomia in infant in prior , currently ([facility]) with other poor obstetric history History of bipolar disorder Personal history of affective disorder 21 weeks gestation of ([facility]) state, incidental Encounter for anatomic survey ([facility]) Encounter for anatomic survey Supervision of high risk in third trimester ([facility] Primary Unspecified high-risk History of pre-eclampsia Personal history of other genital system and obstetric disorders 29 weeks gestation of ([facility]) state, incidental Pre-existing type 2 diabetes mellitus in in third trimester ([facility]) Diabetes mellitus of mother, complicating , childbirth, or the puerperium, unspecified as to episode of care 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 Pre-existing type 2 diabetes mellitus in in first trimester ([facility]) Diabetes mellitus of mother, complicating , childbirth, or the puerperium, unspecified as to episode of care Tobacco smoking complicating in first trimester ([facility]) Tobacco use disorder complicating , childbirth, or the puerperium, antepartum condition or complication History of recurrent UTI (urinary tract infection) Personal history of urinary (tract) infection 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, 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, 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 ([facility]) Herpes simplex type 2 (HSV-2) infection affecting , antepartum, unspecified trimester ([facility]) Supervision of high risk in third trimester ([facility] Primary Unspecified high-risk Pre-existing type 2 diabetes mellitus in in third trimester ([facility]) Diabetes mellitus of mother, complicating , childbirth, or the puerperium, unspecified as to episode of care Herpes simplex type 2 (HSV-2) infection affecting , antepartum, unspecified trimester ([facility]) H/O macrosomia in in prior , currently ([facility]) with other poor obstetric history History of pre-eclampsia Personal history of other genital system and obstetric disorders 31 weeks gestation of ([facility]) state, incidental Supervision of high risk in third trimester ([facility] Primary Unspecified high-risk Pre-existing type 2 diabetes mellitus in in third trimester ([facility]) Diabetes mellitus of mother, complicating , childbirth, or the puerperium, unspecified as to episode of care Exposure to parvovirus Contact with or exposure to other viral diseases History of pre-eclampsia Personal history of other genital system and obstetric disorders Pre-existing type 2 diabetes mellitus in in third trimester ([facility] Primary Diabetes mellitus of mother, complicating , childbirth, or the puerperium, unspecified as to episode of care History of pre-eclampsia Personal history of other genital system and obstetric disorders H/O macrosomia in in prior , currently ([facility]) with other poor obstetric history 33 weeks gestation of ([facility]) state, incidental Request for sterilization Herpes simplex type 2 (HSV-2) infection affecting , antepartum, unspecified trimester ([facility]) Pre-existing type 2 diabetes mellitus in in first trimester ([facility] Primary Diabetes mellitus of mother, complicating , childbirth, or the puerperium, unspecified as to episode of care 34 weeks gestation of ([facility]) state, incidental documented in this encounter [facility] note* Diagnosis Pre-existing type 2 diabetes mellitus in in first trimester ([facility] Primary Diabetes mellitus of mother, complicating , childbirth, or the puerperium, unspecified as to episode of care History of pre-eclampsia Personal history of other genital system and obstetric disorders H/O macrosomia in in prior , currently ([facility]) with other poor obstetric history 17 weeks gestation of ([facility]) state, incidental Encounter for screening for malformation using ultrasound ([facility]) Obesity affecting in first trimester, unspecified obesity type ([facility] Primary Herpes simplex type 2 (HSV-2) infection affecting , antepartum, unspecified trimester ([facility]) Pre-existing type 2 diabetes mellitus in in first trimester ([facility]) Diabetes mellitus of mother, complicating , childbirth, or the puerperium, unspecified as to episode of care 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 Encounter for supervision of high risk in first trimester, antepartum ([facility]) 21 weeks gestation of ([facility]) state, incidental Pre-existing type 2 diabetes mellitus in in first trimester ([facility] Primary Diabetes mellitus of mother, complicating , childbirth, or the puerperium, unspecified as to episode of care Obesity affecting in first trimester, unspecified obesity type ([facility]) History of pre-eclampsia Personal history of other genital system and obstetric disorders H/O macrosomia in in prior , currently ([facility]) with other poor obstetric history History of bipolar disorder Personal history of affective disorder 21 weeks gestation of ([facility]) state, incidental Encounter for anatomic survey ([facility]) Encounter for anatomic survey Supervision of high risk in third trimester ([facility] Primary Unspecified high-risk History of pre-eclampsia Personal history of other genital system and obstetric disorders 29 weeks gestation of ([facility]) state, incidental Pre-existing type 2 diabetes mellitus in in third trimester ([facility]) Diabetes mellitus of mother, complicating , childbirth, or the puerperium, unspecified as to episode of care 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 Pre-existing type 2 diabetes mellitus in in first trimester ([facility]) Diabetes mellitus of mother, complicating , childbirth, or the puerperium, unspecified as to episode of care Tobacco smoking complicating in first trimester ([facility]) Tobacco use disorder complicating , childbirth, or the puerperium, antepartum condition or complication History of recurrent UTI (urinary tract infection) Personal history of urinary (tract) infection 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, 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, 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 ([facility] [facility] Herpes simplex type 2 (HSV-2) infection affecting , antepartum, unspecified trimester ([facility] Supervision of high risk in third trimester ([facility] Primary Unspecified high-risk Pre-existing type 2 diabetes mellitus in in third trimester ([facility]) Diabetes mellitus of mother, complicating , childbirth, or the puerperium, unspecified as to episode of care Herpes simplex type 2 (HSV-2) infection affecting , antepartum, unspecified trimester ([facility] H/O macrosomia in infant in prior , currently ([facility] with other poor obstetric history History of pre-eclampsia Personal history of other genital system and obstetric disorders 31 weeks gestation of ([facility] state, incidental Supervision of high risk in third trimester ([facility] Primary Unspecified high-risk Pre-existing type 2 diabetes mellitus in in third trimester ([facility]) Diabetes mellitus of mother, complicating , childbirth, or the puerperium, unspecified as to episode of care Exposure to parvovirus Contact with or exposure to other viral diseases History of pre-eclampsia Personal history of other genital system and obstetric disorders Pre-existing type 2 diabetes mellitus in in third trimester ([facility] Primary Diabetes mellitus of mother, complicating , childbirth, or the puerperium, unspecified as to episode of care History of pre-eclampsia Personal history of other genital system and obstetric disorders H/O macrosomia in in prior , currently ([facility] with other poor obstetric history 33 weeks gestation of ([facility] state, incidental Request for sterilization Herpes simplex type 2 (HSV-2) infection affecting , antepartum, unspecified trimester ([facility]) Pre-existing type 2 diabetes mellitus in in third trimester ([facility] Primary Diabetes mellitus of mother, complicating , childbirth, or the puerperium, unspecified as to episode of care pruritus, third trimester ([facility]) History of pre-eclampsia Personal history of other genital system and obstetric disorders H/O macrosomia in infant in prior , currently ([facility] with other poor obstetric history 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 complication before ([facility] Other specified complication, antepartum 34 weeks gestation of ([facility] state, incidental documented in this encounter [facility] note* Diagnosis Pre-existing type 2 diabetes mellitus in in first trimester ([facility] Primary Diabetes mellitus of mother, complicating , childbirth, or the puerperium, unspecified as to episode of care History of pre-eclampsia Personal history of other genital system and obstetric disorders H/O macrosomia in in prior , currently ([facility] with other poor obstetric history 17 weeks gestation of ([facility] state, incidental Encounter for screening for malformation using ultrasound ([facility]) Obesity affecting in first trimester, unspecified obesity type ([facility] Primary Herpes simplex type 2 (HSV-2) infection affecting , antepartum, unspecified trimester ([facility]) Pre-existing type 2 diabetes mellitus in in first trimester ([facility]) Diabetes mellitus of mother, complicating , childbirth, or the puerperium, unspecified as to episode of care 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 Encounter for supervision of high risk in first trimester, antepartum ([facility] 21 weeks gestation of ([facility] state, incidental Pre-existing type 2 diabetes mellitus in in first trimester ([facility] Primary Diabetes mellitus of mother, complicating , childbirth, or the puerperium, unspecified as to episode of care Obesity affecting in first trimester, unspecified obesity type ([facility]) History of pre-eclampsia Personal history of other genital system and obstetric disorders H/O macrosomia in infant in prior , currently ([facility] with other poor obstetric history History of bipolar disorder Personal history of affective disorder 21 weeks gestation of ([facility] state, incidental Encounter for anatomic survey ([facility]) Encounter for anatomic survey Supervision of high risk in third trimester ([facility] Primary Unspecified high-risk History of pre-eclampsia Personal history of other genital system and obstetric disorders 29 weeks gestation of ([facility] state, incidental Pre-existing type 2 diabetes mellitus in in third trimester ([facility]) Diabetes mellitus of mother, complicating , childbirth, or the puerperium, unspecified as to episode of care 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 Pre-existing type 2 diabetes mellitus in in first trimester ([facility]) Diabetes mellitus of mother, complicating , childbirth, or the puerperium, unspecified as to episode of care Tobacco smoking complicating in first trimester ([facility]) Tobacco use disorder complicating , childbirth, or the puerperium, antepartum condition or complication History of recurrent UTI (urinary tract infection) Personal history of urinary (tract) infection 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, 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, 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 ([facility] Herpes simplex type 2 (HSV-2) infection affecting , antepartum, unspecified trimester ([facility]) Supervision of high risk in third trimester ([facility] Primary Unspecified high-risk Pre-existing type 2 diabetes mellitus in in third trimester ([facility]) Diabetes mellitus of mother, complicating , childbirth, or the puerperium, unspecified as to episode of care Herpes simplex type 2 (HSV-2) infection affecting , antepartum, unspecified trimester ([facility] H/O macrosomia in in prior , currently ([facility] with other poor obstetric history History of pre-eclampsia Personal history of other genital system and obstetric disorders 31 weeks gestation of ([facility] state, incidental Supervision of high risk in third trimester ([facility] Primary Unspecified high-risk Pre-existing type 2 diabetes mellitus in in third trimester ([facility]) Diabetes mellitus of mother, complicating , childbirth, or the puerperium, unspecified as to episode of care Exposure to parvovirus Contact with or exposure to other viral diseases History of pre-eclampsia Personal history of other genital system and obstetric disorders Pre-existing type 2 diabetes mellitus in in third trimester ([facility] Primary Diabetes mellitus of mother, complicating , childbirth, or the puerperium, unspecified as to episode of care History of pre-eclampsia Personal history of other genital system and obstetric disorders H/O macrosomia in in prior , currently ([facility] with other poor obstetric history 33 weeks gestation of ([facility] state, incidental Request for sterilization Herpes simplex type 2 (HSV-2) infection affecting , antepartum, unspecified trimester ([facility]) Pre-existing type 2 diabetes mellitus in in third trimester ([facility] Primary Diabetes mellitus of mother, complicating , childbirth, or the puerperium, unspecified as to episode of care 35 weeks gestation of ([facility] state, incidental Supervision of high risk in third trimester ([facility]) Unspecified high-risk documented in this encounter [facility] note* Diagnosis Pre-existing type 2 diabetes mellitus in in first trimester ([facility] Primary Diabetes mellitus of mother, complicating , childbirth, or the puerperium, unspecified as to episode of care History of pre-eclampsia Personal history of other genital system and obstetric disorders H/O macrosomia in in prior , currently ([facility] with other poor obstetric history 17 weeks gestation of ([facility] state, incidental Encounter for screening for malformation using ultrasound ([facility]) Obesity affecting in first trimester, unspecified obesity type ([facility] Primary Herpes simplex type 2 (HSV-2) infection affecting , antepartum, unspecified trimester ([facility]) Pre-existing type 2 diabetes mellitus in in first trimester ([facility] Diabetes mellitus of mother, complicating , childbirth, or the puerperium, unspecified as to episode of care 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 Encounter for supervision of high risk in first trimester, antepartum ([facility] 21 weeks gestation of ([facility] state, incidental Pre-existing type 2 diabetes mellitus in in first trimester ([facility] Primary Diabetes mellitus of mother, complicating , childbirth, or the puerperium, unspecified as to episode of care Obesity affecting in first trimester, unspecified obesity type ([facility]) History of pre-eclampsia Personal history of other genital system and obstetric disorders H/O macrosomia in in prior , currently ([facility] with other poor obstetric history History of bipolar disorder Personal history of affective disorder 21 weeks gestation of ([facility] state, incidental Encounter for anatomic survey ([facility] Encounter for anatomic survey Supervision of high risk in third trimester ([facility] Primary Unspecified high-risk History of pre-eclampsia Personal history of other genital system and obstetric disorders 29 weeks gestation of ([facility] state, incidental Pre-existing type 2 diabetes mellitus in in third trimester ([facility]) Diabetes mellitus of mother, complicating , childbirth, or the puerperium, unspecified as to episode of care 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 Pre-existing type 2 diabetes mellitus in in first trimester ([facility]) Diabetes mellitus of mother, complicating , childbirth, or the puerperium, unspecified as to episode of care Tobacco smoking complicating in first trimester ([facility] Tobacco use disorder complicating , childbirth, or the puerperium, antepartum condition or complication History of recurrent UTI (urinary tract infection) Personal history of urinary (tract) infection 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, 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, 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 alf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 ([facility] Herpes simplex type 2 (HSV-2) infection affecting , antepartum, unspecified trimester ([facility]) Supervision of high risk in third trimester ([facility] Primary Unspecified high-risk Pre-existing type 2 diabetes mellitus in in third trimester ([facility]) Diabetes mellitus of mother, complicating , childbirth, or the puerperium, unspecified as to episode of care Herpes simplex type 2 (HSV-2) infection affecting , antepartum, unspecified trimester ([facility] H/O macrosomia in infant in prior , currently ([facility] with other poor obstetric history History of pre-eclampsia Personal history of other genital system and obstetric disorders 31 weeks gestation of ([facility] state, incidental Supervision of high risk in third trimester ([facility] Primary Unspecified high-risk Pre-existing type 2 diabetes mellitus in in third trimester ([facility]) Diabetes mellitus of mother, complicating , childbirth, or the puerperium, unspecified as to episode of care Exposure to parvovirus Contact with or exposure to other viral diseases History of pre-eclampsia Personal history of other genital system and obstetric disorders Pre-existing type 2 diabetes mellitus in in third trimester ([facility] Primary Diabetes mellitus of mother, complicating , childbirth, or the puerperium, unspecified as to episode of care History of pre-eclampsia Personal history of other genital system and obstetric disorders H/O macrosomia in in prior , currently ([facility] with other poor obstetric history 33 weeks gestation of ([facility] state, incidental Request for sterilization Herpes simplex type 2 (HSV-2) infection affecting , antepartum, unspecified trimester ([facility]) Pre-existing type 2 diabetes mellitus in in first trimester ([facility] Primary Diabetes mellitus of mother, complicating , childbirth, or the puerperium, unspecified as to episode of care 35 weeks gestation of ([facility] state, incidental documented in this encounter [facility] note* Diagnosis Pre-existing type 2 diabetes mellitus in in first trimester ([facility] Primary Diabetes mellitus of mother, complicating , childbirth, or the puerperium, unspecified as to episode of care History of pre-eclampsia Personal history of other genital system and obstetric disorders H/O macrosomia in in prior , currently ([facility] with other poor obstetric history 17 weeks gestation of ([facility] state, incidental Encounter for screening for malformation using ultrasound ([facility]) Obesity affecting in first trimester, unspecified obesity type ([facility] Primary Herpes simplex type 2 (HSV-2) infection affecting , antepartum, unspecified trimester ([facility]) Pre-existing type 2 diabetes mellitus in in first trimester ([facility] Diabetes mellitus of mother, complicating , childbirth, or the puerperium, unspecified as to episode of care 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 Encounter for supervision of high risk in first trimester, antepartum ([facility] 21 weeks gestation of ([facility] state, incidental Pre-existing type 2 diabetes mellitus in in first trimester ([facility] Primary Diabetes mellitus of mother, complicating , childbirth, or the puerperium, unspecified as to episode of care Obesity affecting in first trimester, unspecified obesity type ([facility]) History of pre-eclampsia Personal history of other genital system and obstetric disorders H/O macrosomia in in prior , currently ([facility] with other poor obstetric history History of bipolar disorder Personal history of affective disorder 21 weeks gestation of ([facility] state, incidental Encounter for anatomic survey ([facility] Encounter for anatomic survey Supervision of high risk in third trimester ([facility] Primary Unspecified high-risk History of pre-eclampsia Personal history of other genital system and obstetric disorders 29 weeks gestation of ([facility] state, incidental Pre-existing type 2 diabetes mellitus in in third trimester ([facility] Diabetes mellitus of mother, complicating , childbirth, or the puerperium, unspecified as to episode of care 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 Pre-existing type 2 diabetes mellitus in in first trimester ([facility] Diabetes mellitus of mother, complicating , childbirth, or the puerperium, unspecified as to episode of care Tobacco smoking complicating in first trimester ([facility] Tobacco use disorder complicating , childbirth, or the puerperium, antepartum condition or complication History of recurrent UTI (urinary tract infection) Personal history of urinary (tract) infection 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, 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, 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 alf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 ([facility] Herpes simplex type 2 (HSV-2) infection affecting , antepartum, unspecified trimester ([facility] Supervision of high risk in third trimester ([facility] Primary Unspecified high-risk Pre-existing type 2 diabetes mellitus in in third trimester ([facility]) Diabetes mellitus of mother, complicating , childbirth, or the puerperium, unspecified as to episode of care Herpes simplex type 2 (HSV-2) infection affecting , antepartum, unspecified trimester ([facility] H/O macrosomia in in prior , currently ([facility] with other poor obstetric history History of pre-eclampsia Personal history of other genital system and obstetric disorders 31 weeks gestation of ([facility] state, incidental Supervision of high risk in third trimester ([facility] Primary Unspecified high-risk Pre-existing type 2 diabetes mellitus in in third trimester ([facility]) Diabetes mellitus of mother, complicating , childbirth, or the puerperium, unspecified as to episode of care Exposure to parvovirus Contact with or exposure to other viral diseases History of pre-eclampsia Personal history of other genital system and obstetric disorders Pre-existing type 2 diabetes mellitus in in third trimester ([facility] Primary Diabetes mellitus of mother, complicating , childbirth, or the puerperium, unspecified as to episode of care History of pre-eclampsia Personal history of other genital system and obstetric disorders H/O macrosomia in infant in prior , currently ([facility] with other poor obstetric history 33 weeks gestation of ([facility] state, incidental Request for sterilization Herpes simplex type 2 (HSV-2) infection affecting , antepartum, unspecified trimester ([facility]) Pre-existing type 2 diabetes mellitus in in third trimester ([facility] Primary Diabetes mellitus of mother, complicating , childbirth, or the puerperium, unspecified as to episode of care 35 weeks gestation of ([facility] state, incidental Vaginal itching Pruritus of genital organs documented in this encounter [facility] note* Diagnosis Pre-existing type 2 diabetes mellitus in in first trimester ([facility] Primary Diabetes mellitus of mother, complicating , childbirth, or the puerperium, unspecified as to episode of care History of pre-eclampsia Personal history of other genital system and obstetric disorders H/O macrosomia in infant in prior , currently ([facility] with other poor obstetric history 17 weeks gestation of ([facility] state, incidental Encounter for screening for malformation using ultrasound ([facility]) Obesity affecting in first trimester, unspecified obesity type ([facility] Primary Herpes simplex type 2 (HSV-2) infection affecting , antepartum, unspecified trimester ([facility]) Pre-existing type 2 diabetes mellitus in in first trimester ([facility] Diabetes mellitus of mother, complicating , childbirth, or the puerperium, unspecified as to episode of care 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 Encounter for supervision of high risk in first trimester, antepartum ([facility] 21 weeks gestation of ([facility] state, incidental Pre-existing type 2 diabetes mellitus in in first trimester ([facility] Primary Diabetes mellitus of mother, complicating , childbirth, or the puerperium, unspecified as to episode of care Obesity affecting in first trimester, unspecified obesity type ([facility]) History of pre-eclampsia Personal history of other genital system and obstetric disorders H/O macrosomia in in prior , currently ([facility] with other poor obstetric history History of bipolar disorder Personal history of affective disorder 21 weeks gestation of ([facility] state, incidental Encounter for anatomic survey ([facility] Encounter for anatomic survey Supervision of high risk in third trimester ([facility] Primary Unspecified high-risk History of pre-eclampsia Personal history of other genital system and obstetric disorders 29 weeks gestation of ([facility] state, incidental Pre-existing type 2 diabetes mellitus in in third trimester ([facility] Diabetes mellitus of mother, complicating , childbirth, or the puerperium, unspecified as to episode of care 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 Pre-existing type 2 diabetes mellitus in in first trimester ([facility]) Diabetes mellitus of mother, complicating , childbirth, or the puerperium, unspecified as to episode of care Tobacco smoking complicating in first trimester ([facility]) Tobacco use disorder complicating , childbirth, or the puerperium, antepartum condition or complication History of recurrent UTI (urinary tract infection) Personal history of urinary (tract) infection 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, 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, 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 ([facility]) Herpes simplex type 2 (HSV-2) infection affecting , antepartum, unspecified trimester ([facility]) Supervision of high risk in third trimester ([facility] Primary Unspecified high-risk Pre-existing type 2 diabetes mellitus in in third trimester ([facility]) Diabetes mellitus of mother, complicating , childbirth, or the puerperium, unspecified as to episode of care Herpes simplex type 2 (HSV-2) infection affecting , antepartum, unspecified trimester ([facility]) H/O macrosomia in infant in prior , currently ([facility]) with other poor obstetric history History of pre-eclampsia Personal history of other genital system and obstetric disorders 31 weeks gestation of ([facility]) state, incidental Supervision of high risk in third trimester ([facility])- Primary Unspecified high-risk Pre-existing type 2 diabetes mellitus in in third trimester ([facility]) Diabetes mellitus of mother, complicating , childbirth, or the puerperium, unspecified as to episode of care Exposure to parvovirus Contact with or exposure to other viral diseases History of pre-eclampsia Personal history of other genital system and obstetric disorders Pre-existing type 2 diabetes mellitus in in third trimester ([facility])- Primary Diabetes mellitus of mother, complicating , childbirth, or the puerperium, unspecified as to episode of care History of pre-eclampsia Personal history of other genital system and obstetric disorders H/O macrosomia in infant in prior , currently ([facility]) with other poor obstetric history 33 weeks gestation of ([facility]) state, incidental Request for sterilization Herpes simplex type 2 (HSV-2) infection affecting , antepartum, unspecified trimester ([facility]) Obesity affecting in first trimester, unspecified obesity type ([facility] Primary Pre-existing type 2 diabetes mellitus in in first trimester ([facility]) Diabetes mellitus of mother, complicating , childbirth, or the puerperium, unspecified as to episode of care documented in this encounter [facility] note* Diagnosis Pre-existing type 2 diabetes mellitus in in first trimester ([facility] Primary Diabetes mellitus of mother, complicating , childbirth, or the puerperium, unspecified as to episode of care History of pre-eclampsia Personal history of other genital system and obstetric disorders H/O macrosomia in infant in prior , currently ([facility]) with other poor obstetric history 17 weeks gestation of ([facility]) state, incidental Encounter for screening for malformation using ultrasound ([facility]) Obesity affecting in first trimester, unspecified obesity type ([facility] Primary Herpes simplex type 2 (HSV-2) infection affecting , antepartum, unspecified trimester ([facility]) Pre-existing type 2 diabetes mellitus in in first trimester ([facility]) Diabetes mellitus of mother, complicating , childbirth, or the puerperium, unspecified as to episode of care 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 Encounter for supervision of high risk in first trimester, antepartum ([facility]) 21 weeks gestation of ([facility]) state, incidental Pre-existing type 2 diabetes mellitus in in first trimester ([facility] Primary Diabetes mellitus of mother, complicating , childbirth, or the puerperium, unspecified as to episode of care Obesity affecting in first trimester, unspecified obesity type ([facility]) History of pre-eclampsia Personal history of other genital system and obstetric disorders H/O macrosomia in infant in prior , currently ([facility]) with other poor obstetric history History of bipolar disorder Personal history of affective disorder 21 weeks gestation of ([facility]) state, incidental Encounter for anatomic survey ([facility]) Encounter for anatomic survey Supervision of high risk in third trimester ([facility])- Primary Unspecified high-risk History of pre-eclampsia Personal history of other genital system and obstetric disorders 29 weeks gestation of ([facility]) state, incidental Pre-existing type 2 diabetes mellitus in in third trimester ([facility]) Diabetes mellitus of mother, complicating , childbirth, or the puerperium, unspecified as to episode of care 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 Pre-existing type 2 diabetes mellitus in in first trimester ([facility]) Diabetes mellitus of mother, complicating , childbirth, or the puerperium, unspecified as to episode of care Tobacco smoking complicating in first trimester ([facility]) Tobacco use disorder complicating , childbirth, or the puerperium, antepartum condition or complication History of recurrent UTI (urinary tract infection) Personal history of urinary (tract) infection 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, 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, 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 alf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 ([facility]) Herpes simplex type 2 (HSV-2) infection affecting , antepartum, unspecified trimester ([facility]) Supervision of high risk in third trimester ([facility])- Primary Unspecified high-risk Pre-existing type 2 diabetes mellitus in in third trimester ([facility]) Diabetes mellitus of mother, complicating , childbirth, or the puerperium, unspecified as to episode of care Herpes simplex type 2 (HSV-2) infection affecting , antepartum, unspecified trimester ([facility]) H/O macrosomia in infant in prior , currently ([facility]) with other poor obstetric history History of pre-eclampsia Personal history of other genital system and obstetric disorders 31 weeks gestation of ([facility]) state, incidental Supervision of high risk in third trimester ([facility])- Primary Unspecified high-risk Pre-existing type 2 diabetes mellitus in in third trimester ([facility]) Diabetes mellitus of mother, complicating , childbirth, or the puerperium, unspecified as to episode of care Exposure to parvovirus Contact with or exposure to other viral diseases History of pre-eclampsia Personal history of other genital system and obstetric disorders Pre-existing type 2 diabetes mellitus in in third trimester ([facility] Primary Diabetes mellitus of mother, complicating , childbirth, or the puerperium, unspecified as to episode of care History of pre-eclampsia Personal history of other genital system and obstetric disorders H/O macrosomia in infant in prior , currently ([facility]) with other poor obstetric history 33 weeks gestation of ([facility]) state, incidental Request for sterilization Herpes simplex type 2 (HSV-2) infection affecting , antepartum, unspecified trimester ([facility]) History of herpes genitalis- Primary Personal history of other infectious and parasitic disease Pre-existing type 2 diabetes mellitus in in third trimester ([facility]) Diabetes mellitus of mother, complicating , childbirth, or the puerperium, unspecified as to episode of care History of pre-eclampsia Personal history of other genital system and obstetric disorders 36 weeks gestation of ([facility]) state, incidental * Assessment & Plan Note - William Gramajo MD - 11/25/2024 10:24 AM EDTAssociated Problem(s): History of pre-eclampsia Orders: URINE OB DIP B[facility] Diagnosis Pre-existing type 2 diabetes mellitus in in first trimester ([facility] Primary Diabetes mellitus of mother, complicating , childbirth, or the puerperium, unspecified as to episode of care History of pre-eclampsia Personal history of other genital system and obstetric disorders H/O macrosomia in in prior , currently ([facility]) with other poor obstetric history 17 weeks gestation of ([facility]) state, incidental Encounter for screening for malformation using ultrasound ([facility]) Obesity affecting in first trimester, unspecified obesity type ([facility] Primary Herpes simplex type 2 (HSV-2) infection affecting , antepartum, unspecified trimester ([facility]) Pre-existing type 2 diabetes mellitus in in first trimester ([facility]) Diabetes mellitus of mother, complicating , childbirth, or the puerperium, unspecified as to episode of care 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 Encounter for supervision of high risk in first trimester, antepartum ([facility]) 21 weeks gestation of ([facility]) state, incidental Pre-existing type 2 diabetes mellitus in in first trimester ([facility] Primary Diabetes mellitus of mother, complicating , childbirth, or the puerperium, unspecified as to episode of care Obesity affecting in first trimester, unspecified obesity type ([facility]) History of pre-eclampsia Personal history of other genital system and obstetric disorders H/O macrosomia in infant in prior , currently ([facility]) with other poor obstetric history History of bipolar disorder Personal history of affective disorder 21 weeks gestation of ([facility]) state, incidental Encounter for anatomic survey ([facility]) Encounter for anatomic survey Supervision of high risk in third trimester ([facility])- Primary Unspecified high-risk History of pre-eclampsia Personal history of other genital system and obstetric disorders 29 weeks gestation of ([facility]) state, incidental Pre-existing type 2 diabetes mellitus in in third trimester ([facility]) Diabetes mellitus of mother, complicating , childbirth, or the puerperium, unspecified as to episode of care 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 Pre-existing type 2 diabetes mellitus in in first trimester ([facility]) Diabetes mellitus of mother, complicating , childbirth, or the puerperium, unspecified as to episode of care Tobacco smoking complicating in first trimester ([facility]) Tobacco use disorder complicating , childbirth, or the puerperium, antepartum condition or complication History of recurrent UTI (urinary tract infection) Personal history of urinary (tract) infection 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, 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, 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 alf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 ([facility]) Herpes simplex type 2 (HSV-2) infection affecting , antepartum, unspecified trimester ([facility]) Supervision of high risk in third trimester ([facility])- Primary Unspecified high-risk Pre-existing type 2 diabetes mellitus in in third trimester ([facility]) Diabetes mellitus of mother, complicating , childbirth, or the puerperium, unspecified as to episode of care Herpes simplex type 2 (HSV-2) infection affecting , antepartum, unspecified trimester ([facility]) H/O macrosomia in in prior , currently ([facility]) with other poor obstetric history History of pre-eclampsia Personal history of other genital system and obstetric disorders 31 weeks gestation of ([facility]) state, incidental Supervision of high risk in third trimester ([facility])- Primary Unspecified high-risk Pre-existing type 2 diabetes mellitus in in third trimester ([facility]) Diabetes mellitus of mother, complicating , childbirth, or the puerperium, unspecified as to episode of care Exposure to parvovirus Contact with or exposure to other viral diseases History of pre-eclampsia Personal history of other genital system and obstetric disorders Pre-existing type 2 diabetes mellitus in in third trimester ([facility] Primary Diabetes mellitus of mother, complicating , childbirth, or the puerperium, unspecified as to episode of care History of pre-eclampsia Personal history of other genital system and obstetric disorders H/O macrosomia in in prior , currently ([facility]) with other poor obstetric history 33 weeks gestation of ([facility]) state, incidental Request for sterilization Herpes simplex type 2 (HSV-2) infection affecting , antepartum, unspecified trimester ([facility]) History of herpes genitalis- Primary Personal history of other infectious and parasitic disease Pre-existing type 2 diabetes mellitus in in third trimester ([facility]) Diabetes mellitus of mother, complicating , childbirth, or the puerperium, unspecified as to episode of care History of pre-eclampsia Personal history of other genital system and obstetric disorders 36 weeks gestation of ([facility]) state, incidental Pre-existing type 2 diabetes mellitus in in third trimester ([facility])- Primary Diabetes mellitus of mother, complicating , childbirth, or the puerperium, unspecified as to episode of care Pre-existing type 2 diabetes mellitus in in first trimester ([facility]) Diabetes mellitus of mother, complicating , childbirth, or the puerperium, unspecified as to episode of care [facility] Diagnosis Pre-existing type 2 diabetes mellitus in in first trimester ([facility] Primary Diabetes mellitus of mother, complicating , childbirth, or the puerperium, unspecified as to episode of care History of pre-eclampsia Personal history of other genital system and obstetric disorders H/O macrosomia in in prior , currently ([facility]) with other poor obstetric history 17 weeks gestation of ([facility]) state, incidental Encounter for screening for malformation using ultrasound ([facility]) Obesity affecting in first trimester, unspecified obesity type ([facility] Primary Herpes simplex type 2 (HSV-2) infection affecting , antepartum, unspecified trimester ([facility]) Pre-existing type 2 diabetes mellitus in in first trimester ([facility]) Diabetes mellitus of mother, complicating , childbirth, or the puerperium, unspecified as to episode of care 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 Encounter for supervision of high risk in first trimester, antepartum ([facility]) 21 weeks gestation of ([facility]) state, incidental Pre-existing type 2 diabetes mellitus in in first trimester ([facility] Primary Diabetes mellitus of mother, complicating , childbirth, or the puerperium, unspecified as to episode of care Obesity affecting in first trimester, unspecified obesity type ([facility]) History of pre-eclampsia Personal history of other genital system and obstetric disorders H/O macrosomia in in prior , currently ([facility]) with other poor obstetric history History of bipolar disorder Personal history of affective disorder 21 weeks gestation of ([facility]) state, incidental Encounter for anatomic survey ([facility]) Encounter for anatomic survey Supervision of high risk in third trimester ([facility] Primary Unspecified high-risk History of pre-eclampsia Personal history of other genital system and obstetric disorders 29 weeks gestation of ([facility]) state, incidental Pre-existing type 2 diabetes mellitus in in third trimester ([facility]) Diabetes mellitus of mother, complicating , childbirth, or the puerperium, unspecified as to episode of care 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 Pre-existing type 2 diabetes mellitus in in first trimester ([facility]) Diabetes mellitus of mother, complicating , childbirth, or the puerperium, unspecified as to episode of care Tobacco smoking complicating in first trimester ([facility]) Tobacco use disorder complicating , childbirth, or the puerperium, antepartum condition or complication History of recurrent UTI (urinary tract infection) Personal history of urinary (tract) infection 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, 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, 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 alf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 ([facility]) Herpes simplex type 2 (HSV-2) infection affecting , antepartum, unspecified trimester ([facility]) Supervision of high risk in third trimester ([facility] Primary Unspecified high-risk Pre-existing type 2 diabetes mellitus in in third trimester ([facility]) Diabetes mellitus of mother, complicating , childbirth, or the puerperium, unspecified as to episode of care Herpes simplex type 2 (HSV-2) infection affecting , antepartum, unspecified trimester ([facility]) H/O macrosomia in in prior , currently ([facility]) with other poor obstetric history History of pre-eclampsia Personal history of other genital system and obstetric disorders 31 weeks gestation of ([facility] state, incidental Supervision of high risk in third trimester ([facility] Primary Unspecified high-risk Pre-existing type 2 diabetes mellitus in in third trimester ([facility]) Diabetes mellitus of mother, complicating , childbirth, or the puerperium, unspecified as to episode of care Exposure to parvovirus Contact with or exposure to other viral diseases History of pre-eclampsia Personal history of other genital system and obstetric disorders Pre-existing type 2 diabetes mellitus in in third trimester ([facility] Primary Diabetes mellitus of mother, complicating , childbirth, or the puerperium, unspecified as to episode of care History of pre-eclampsia Personal history of other genital system and obstetric disorders H/O macrosomia in in prior , currently ([facility]) with other poor obstetric history 33 weeks gestation of ([facility] state, incidental Request for sterilization Herpes simplex type 2 (HSV-2) infection affecting , antepartum, unspecified trimester ([facility]) History of herpes genitalis- Primary Personal history of other infectious and parasitic disease Pre-existing type 2 diabetes mellitus in in third trimester ([facility]) Diabetes mellitus of mother, complicating , childbirth, or the puerperium, unspecified as to episode of care History of pre-eclampsia Personal history of other genital system and obstetric disorders 36 weeks gestation of ([facility]) state, incidental Pre-existing type 2 diabetes mellitus in in third trimester ([facility] Primary Diabetes mellitus of mother, complicating , childbirth, or the puerperium, unspecified as to episode of care 37 weeks gestation of ([facility]) state, incidental Supervision of high risk in third trimester ([facility]) Unspecified high-risk [facility] Diagnosis Pre-existing type 2 diabetes mellitus in in first trimester ([facility] Primary Diabetes mellitus of mother, complicating , childbirth, or the puerperium, unspecified as to episode of care History of pre-eclampsia Personal history of other genital system and obstetric disorders H/O macrosomia in in prior , currently ([facility]) with other poor obstetric history 17 weeks gestation of ([facility]) state, incidental Encounter for screening for malformation using ultrasound ([facility]) Obesity affecting in first trimester, unspecified obesity type ([facility] Primary Herpes simplex type 2 (HSV-2) infection affecting , antepartum, unspecified trimester ([facility]) Pre-existing type 2 diabetes mellitus in in first trimester ([facility]) Diabetes mellitus of mother, complicating , childbirth, or the puerperium, unspecified as to episode of care 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 Encounter for supervision of high risk in first trimester, antepartum ([facility]) 21 weeks gestation of ([facility]) state, incidental Pre-existing type 2 diabetes mellitus in in first trimester ([facility])- Primary Diabetes mellitus of mother, complicating , childbirth, or the puerperium, unspecified as to episode of care Obesity affecting in first trimester, unspecified obesity type ([facility]) History of pre-eclampsia Personal history of other genital system and obstetric disorders H/O macrosomia in in prior , currently ([facility]) with other poor obstetric history History of bipolar disorder Personal history of affective disorder 21 weeks gestation of ([facility] state, incidental Encounter for anatomic survey ([facility]) Encounter for anatomic survey Supervision of high risk in third trimester ([facility])- Primary Unspecified high-risk History of pre-eclampsia Personal history of other genital system and obstetric disorders 29 weeks gestation of ([facility]) state, incidental Pre-existing type 2 diabetes mellitus in in third trimester ([facility]) Diabetes mellitus of mother, complicating , childbirth, or the puerperium, unspecified as to episode of care 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 Pre-existing type 2 diabetes mellitus in in first trimester ([facility]) Diabetes mellitus of mother, complicating , childbirth, or the puerperium, unspecified as to episode of care Tobacco smoking complicating in first trimester ([facility]) Tobacco use disorder complicating , childbirth, or the puerperium, antepartum condition or complication History of recurrent UTI (urinary tract infection) Personal history of urinary (tract) infection 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, 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, 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 alf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 ([facility]) Herpes simplex type 2 (HSV-2) infection affecting , antepartum, unspecified trimester ([facility]) Supervision of high risk in third trimester ([facility])- Primary Unspecified high-risk Pre-existing type 2 diabetes mellitus in in third trimester ([facility]) Diabetes mellitus of mother, complicating , childbirth, or the puerperium, unspecified as to episode of care Herpes simplex type 2 (HSV-2) infection affecting , antepartum, unspecified trimester ([facility]) H/O macrosomia in infant in prior , currently ([facility]) with other poor obstetric history History of pre-eclampsia Personal history of other genital system and obstetric disorders 31 weeks gestation of ([facility]) state, incidental Supervision of high risk in third trimester ([facility])- Primary Unspecified high-risk Pre-existing type 2 diabetes mellitus in in third trimester ([facility]) Diabetes mellitus of mother, complicating , childbirth, or the puerperium, unspecified as to episode of care Exposure to parvovirus Contact with or exposure to other viral diseases History of pre-eclampsia Personal history of other genital system and obstetric disorders Pre-existing type 2 diabetes mellitus in in third trimester ([facility])- Primary Diabetes mellitus of mother, complicating , childbirth, or the puerperium, unspecified as to episode of care History of pre-eclampsia Personal history of other genital system and obstetric disorders H/O macrosomia in infant in prior , currently ([facility]) with other poor obstetric history 33 weeks gestation of ([facility]) state, incidental Request for sterilization Herpes simplex type 2 (HSV-2) infection affecting , antepartum, unspecified trimester ([facility]) History of herpes genitalis- Primary Personal history of other infectious and parasitic disease Pre-existing type 2 diabetes mellitus in in third trimester ([facility]) Diabetes mellitus of mother, complicating , childbirth, or the puerperium, unspecified as to episode of care History of pre-eclampsia Personal history of other genital system and obstetric disorders 36 weeks gestation of ([facility]) state, incidental Pre-existing type 2 diabetes mellitus in in first trimester ([facility])- Primary Diabetes mellitus of mother, complicating , childbirth, or the puerperium, unspecified as to episode of care 38 weeks gestation of ([facility]) state, incidental documented in this encounter [facility] note* Diagnosis Pre-existing type 2 diabetes mellitus in in first trimester ([facility])- Primary Diabetes mellitus of mother, complicating , childbirth, or the puerperium, unspecified as to episode of care History of pre-eclampsia Personal history of other genital system and obstetric disorders H/O macrosomia in in prior , currently ([facility]) with other poor obstetric history 17 weeks gestation of ([facility]) state, incidental Encounter for screening for malformation using ultrasound ([facility]) Obesity affecting in first trimester, unspecified obesity type ([facility] Primary Herpes simplex type 2 (HSV-2) infection affecting , antepartum, unspecified trimester ([facility]) Pre-existing type 2 diabetes mellitus in in first trimester ([facility]) Diabetes mellitus of mother, complicating , childbirth, or the puerperium, unspecified as to episode of care 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 Encounter for supervision of high risk in first trimester, antepartum ([facility]) 21 weeks gestation of ([facility]) state, incidental Pre-existing type 2 diabetes mellitus in in first trimester ([facility])- Primary Diabetes mellitus of mother, complicating , childbirth, or the puerperium, unspecified as to episode of care Obesity affecting in first trimester, unspecified obesity type ([facility]) History of pre-eclampsia Personal history of other genital system and obstetric disorders H/O macrosomia in in prior , currently ([facility]) with other poor obstetric history History of bipolar disorder Personal history of affective disorder 21 weeks gestation of ([facility]) state, incidental Encounter for anatomic survey ([facility]) Encounter for anatomic survey Supervision of high risk in third trimester ([facility])- Primary Unspecified high-risk History of pre-eclampsia Personal history of other genital system and obstetric disorders 29 weeks gestation of ([facility]) state, incidental Pre-existing type 2 diabetes mellitus in in third trimester ([facility]) Diabetes mellitus of mother, complicating , childbirth, or the puerperium, unspecified as to episode of care 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 Pre-existing type 2 diabetes mellitus in in first trimester ([facility]) Diabetes mellitus of mother, complicating , childbirth, or the puerperium, unspecified as to episode of care Tobacco smoking complicating in first trimester ([facility]) Tobacco use disorder complicating , childbirth, or the puerperium, antepartum condition or complication History of recurrent UTI (urinary tract infection) Personal history of urinary (tract) infection 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, 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, 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 alf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 ([facility]) Herpes simplex type 2 (HSV-2) infection affecting , antepartum, unspecified trimester ([facility]) Supervision of high risk in third trimester ([facility])- Primary Unspecified high-risk Pre-existing type 2 diabetes mellitus in in third trimester ([facility]) Diabetes mellitus of mother, complicating , childbirth, or the puerperium, unspecified as to episode of care Herpes simplex type 2 (HSV-2) infection affecting , antepartum, unspecified trimester ([facility]) H/O macrosomia in in prior , currently ([facility]) with other poor obstetric history History of pre-eclampsia Personal history of other genital system and obstetric disorders 31 weeks gestation of ([facility]) state, incidental Supervision of high risk in third trimester ([facility])- Primary Unspecified high-risk Pre-existing type 2 diabetes mellitus in in third trimester ([facility]) Diabetes mellitus of mother, complicating , childbirth, or the puerperium, unspecified as to episode of care Exposure to parvovirus Contact with or exposure to other viral diseases History of pre-eclampsia Personal history of other genital system and obstetric disorders Pre-existing type 2 diabetes mellitus in in third trimester ([facility])- Primary Diabetes mellitus of mother, complicating , childbirth, or the puerperium, unspecified as to episode of care History of pre-eclampsia Personal history of other genital system and obstetric disorders H/O macrosomia in in prior , currently ([facility]) with other poor obstetric history 33 weeks gestation of ([facility] state, incidental Request for sterilization Herpes simplex type 2 (HSV-2) infection affecting , antepartum, unspecified trimester ([facility]) History of herpes genitalis- Primary Personal history of other infectious and parasitic disease Pre-existing type 2 diabetes mellitus in in third trimester ([facility]) Diabetes mellitus of mother, complicating , childbirth, or the puerperium, unspecified as to episode of care History of pre-eclampsia Personal history of other genital system and obstetric disorders 36 weeks gestation of ([facility]) state, incidental Pre-existing type 2 diabetes mellitus in in third trimester ([facility])- Primary Diabetes mellitus of mother, complicating , childbirth, or the puerperium, unspecified as to episode of care Supervision of high risk in third trimester ([facility]) Unspecified high-risk History of pre-eclampsia Personal history of other genital system and obstetric disorders H/O macrosomia in in prior , currently ([facility]) with other poor obstetric history 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 38 weeks gestation of ([facility]) state, incidental documented in this encounter [facility] note* Diagnosis Pre-existing type 2 diabetes mellitus in in first trimester ([facility])- Primary Diabetes mellitus of mother, complicating , childbirth, or the puerperium, unspecified as to episode of care History of pre-eclampsia Personal history of other genital system and obstetric disorders H/O macrosomia in in prior , currently ([facility]) with other poor obstetric history 17 weeks gestation of ([facility]) state, incidental Encounter for screening for malformation using ultrasound ([facility]) Obesity affecting in first trimester, unspecified obesity type ([facility] Primary Herpes simplex type 2 (HSV-2) infection affecting , antepartum, unspecified trimester ([facility]) Pre-existing type 2 diabetes mellitus in in first trimester ([facility]) Diabetes mellitus of mother, complicating , childbirth, or the puerperium, unspecified as to episode of care 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 Encounter for supervision of high risk in first trimester, antepartum ([facility]) 21 weeks gestation of ([facility]) state, incidental Pre-existing type 2 diabetes mellitus in in first trimester ([facility] Primary Diabetes mellitus of mother, complicating , childbirth, or the puerperium, unspecified as to episode of care Obesity affecting in first trimester, unspecified obesity type ([facility]) History of pre-eclampsia Personal history of other genital system and obstetric disorders H/O macrosomia in infant in prior , currently ([facility]) with other poor obstetric history History of bipolar disorder Personal history of affective disorder 21 weeks gestation of ([facility] state, incidental Encounter for anatomic survey ([facility]) Encounter for anatomic survey Supervision of high risk in third trimester ([facility])- Primary Unspecified high-risk History of pre-eclampsia Personal history of other genital system and obstetric disorders 29 weeks gestation of ([facility]) state, incidental Pre-existing type 2 diabetes mellitus in in third trimester ([facility]) Diabetes mellitus of mother, complicating , childbirth, or the puerperium, unspecified as to episode of care 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 Pre-existing type 2 diabetes mellitus in in first trimester ([facility]) Diabetes mellitus of mother, complicating , childbirth, or the puerperium, unspecified as to episode of care Tobacco smoking complicating in first trimester ([facility]) Tobacco use disorder complicating , childbirth, or the puerperium, antepartum condition or complication History of recurrent UTI (urinary tract infection) Personal history of urinary (tract) infection 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, 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, 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 ([facility]) Herpes simplex type 2 (HSV-2) infection affecting , antepartum, unspecified trimester ([facility]) Supervision of high risk in third trimester ([facility] Primary Unspecified high-risk Pre-existing type 2 diabetes mellitus in in third trimester ([facility]) Diabetes mellitus of mother, complicating , childbirth, or the puerperium, unspecified as to episode of care Herpes simplex type 2 (HSV-2) infection affecting , antepartum, unspecified trimester ([facility]) H/O macrosomia in in prior , currently ([facility]) with other poor obstetric history History of pre-eclampsia Personal history of other genital system and obstetric disorders 31 weeks gestation of ([facility] state, incidental Supervision of high risk in third trimester ([facility])- Primary Unspecified high-risk Pre-existing type 2 diabetes mellitus in in third trimester ([facility]) Diabetes mellitus of mother, complicating , childbirth, or the puerperium, unspecified as to episode of care Exposure to parvovirus Contact with or exposure to other viral diseases History of pre-eclampsia Personal history of other genital system and obstetric disorders Pre-existing type 2 diabetes mellitus in in third trimester ([facility] Primary Diabetes mellitus of mother, complicating , childbirth, or the puerperium, unspecified as to episode of care History of pre-eclampsia Personal history of other genital system and obstetric disorders H/O macrosomia in in prior , currently ([facility]) with other poor obstetric history 33 weeks gestation of ([facility] state, incidental Request for sterilization Herpes simplex type 2 (HSV-2) infection affecting , antepartum, unspecified trimester ([facility]) History of herpes genitalis- Primary Personal history of other infectious and parasitic disease Pre-existing type 2 diabetes mellitus in in third trimester ([facility]) Diabetes mellitus of mother, complicating , childbirth, or the puerperium, unspecified as to episode of care History of pre-eclampsia Personal history of other genital system and obstetric disorders 36 weeks gestation of ([facility] state, incidental care and examination immediately after delivery ([facility] Primary care and examination immediately after delivery [facility] Diagnosis Pre-existing type 2 diabetes mellitus in in first trimester ([facility] Primary Diabetes mellitus of mother, complicating , childbirth, or the puerperium, unspecified as to episode of care History of pre-eclampsia Personal history of other genital system and obstetric disorders H/O macrosomia in infant in prior , currently ([facility]) with other poor obstetric history 17 weeks gestation of ([facility] state, incidental Encounter for screening for malformation using ultrasound ([facility]) Obesity affecting in first trimester, unspecified obesity type ([facility] Primary Herpes simplex type 2 (HSV-2) infection affecting , antepartum, unspecified trimester ([facility]) Pre-existing type 2 diabetes mellitus in in first trimester ([facility]) Diabetes mellitus of mother, complicating , childbirth, or the puerperium, unspecified as to episode of care 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 Encounter for supervision of high risk in first trimester, antepartum ([facility]) 21 weeks gestation of ([facility] state, incidental Pre-existing type 2 diabetes mellitus in in first trimester ([facility] Primary Diabetes mellitus of mother, complicating , childbirth, or the puerperium, unspecified as to episode of care Obesity affecting in first trimester, unspecified obesity type ([facility]) History of pre-eclampsia Personal history of other genital system and obstetric disorders H/O macrosomia in infant in prior , currently ([facility]) with other poor obstetric history History of bipolar disorder Personal history of affective disorder 21 weeks gestation of ([facility] state, incidental Encounter for anatomic survey ([facility]) Encounter for anatomic survey Supervision of high risk in third trimester ([facility] Primary Unspecified high-risk History of pre-eclampsia Personal history of other genital system and obstetric disorders 29 weeks gestation of ([facility] state, incidental Pre-existing type 2 diabetes mellitus in in third trimester ([facility]) Diabetes mellitus of mother, complicating , childbirth, or the puerperium, unspecified as to episode of care 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 Pre-existing type 2 diabetes mellitus in in first trimester ([facility]) Diabetes mellitus of mother, complicating , childbirth, or the puerperium, unspecified as to episode of care Tobacco smoking complicating in first trimester ([facility]) Tobacco use disorder complicating , childbirth, or the puerperium, antepartum condition or complication History of recurrent UTI (urinary tract infection) Personal history of urinary (tract) infection 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, 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, 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 ([facility]) Herpes simplex type 2 (HSV-2) infection affecting , antepartum, unspecified trimester ([facility]) Supervision of high risk in third trimester ([facility] Primary Unspecified high-risk Pre-existing type 2 diabetes mellitus in in third trimester ([facility]) Diabetes mellitus of mother, complicating , childbirth, or the puerperium, unspecified as to episode of care Herpes simplex type 2 (HSV-2) infection affecting , antepartum, unspecified trimester ([facility]) H/O macrosomia in in prior , currently ([facility]) with other poor obstetric history History of pre-eclampsia Personal history of other genital system and obstetric disorders 31 weeks gestation of ([facility] state, incidental Supervision of high risk in third trimester ([facility] Primary Unspecified high-risk Pre-existing type 2 diabetes mellitus in in third trimester ([facility]) Diabetes mellitus of mother, complicating , childbirth, or the puerperium, unspecified as to episode of care Exposure to parvovirus Contact with or exposure to other viral diseases History of pre-eclampsia Personal history of other genital system and obstetric disorders Pre-existing type 2 diabetes mellitus in in third trimester ([facility] Primary Diabetes mellitus of mother, complicating , childbirth, or the puerperium, unspecified as to episode of care History of pre-eclampsia Personal history of other genital system and obstetric disorders H/O macrosomia in infant in prior , currently ([facility]) with other poor obstetric history 33 weeks gestation of ([facility] state, incidental Request for sterilization Herpes simplex type 2 (HSV-2) infection affecting , antepartum, unspecified trimester ([facility]) History of herpes genitalis- Primary Personal history of other infectious and parasitic disease Pre-existing type 2 diabetes mellitus in in third trimester ([facility]) Diabetes mellitus of mother, complicating , childbirth, or the puerperium, unspecified as to episode of care History of pre-eclampsia Personal history of other genital system and obstetric disorders 36 weeks gestation of ([facility]) state, incidental care and examination ([facility])- Primary Routine follow-up Request for sterilization Pre-op exam Preoperative examination, unspecified documented in this encounter [facility] note* Diagnosis Pre-existing type 2 diabetes mellitus in in first trimester ([facility])- Primary Diabetes mellitus of mother, complicating , childbirth, or the puerperium, unspecified as to episode of care History of pre-eclampsia Personal history of other genital system and obstetric disorders H/O macrosomia in infant in prior , currently ([facility]) with other poor obstetric history 17 weeks gestation of ([facility]) state, incidental Encounter for screening for malformation using ultrasound ([facility]) Obesity affecting in first trimester, unspecified obesity type ([facility])- Primary Herpes simplex type 2 (HSV-2) infection affecting , antepartum, unspecified trimester ([facility]) Pre-existing type 2 diabetes mellitus in in first trimester ([facility]) Diabetes mellitus of mother, complicating , childbirth, or the puerperium, unspecified as to episode of care 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 Encounter for supervision of high risk in first trimester, antepartum ([facility]) 21 weeks gestation of ([facility]) state, incidental Pre-existing type 2 diabetes mellitus in in first trimester ([facility])- Primary Diabetes mellitus of mother, complicating , childbirth, or the puerperium, unspecified as to episode of care Obesity affecting in first trimester, unspecified obesity type ([facility]) History of pre-eclampsia Personal history of other genital system and obstetric disorders H/O macrosomia in in prior , currently ([facility]) with other poor obstetric history History of bipolar disorder Personal history of affective disorder 21 weeks gestation of ([facility]) state, incidental Encounter for anatomic survey ([facility]) Encounter for anatomic survey Supervision of high risk in third trimester ([facility])- Primary Unspecified high-risk History of pre-eclampsia Personal history of other genital system and obstetric disorders 29 weeks gestation of ([facility]) state, incidental Pre-existing type 2 diabetes mellitus in in third trimester ([facility]) Diabetes mellitus of mother, complicating , childbirth, or the puerperium, unspecified as to episode of care 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 Pre-existing type 2 diabetes mellitus in in first trimester ([facility]) Diabetes mellitus of mother, complicating , childbirth, or the puerperium, unspecified as to episode of care Tobacco smoking complicating in first trimester ([facility]) Tobacco use disorder complicating , childbirth, or the puerperium, antepartum condition or complication History of recurrent UTI (urinary tract infection) Personal history of urinary (tract) infection 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, 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, 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 ([facility]) Herpes simplex type 2 (HSV-2) infection affecting , antepartum, unspecified trimester ([facility]) Supervision of high risk in third trimester ([facility])- Primary Unspecified high-risk Pre-existing type 2 diabetes mellitus in in third trimester ([facility]) Diabetes mellitus of mother, complicating , childbirth, or the puerperium, unspecified as to episode of care Herpes simplex type 2 (HSV-2) infection affecting , antepartum, unspecified trimester ([facility]) H/O macrosomia in infant in prior , currently ([facility]) with other poor obstetric history History of pre-eclampsia Personal history of other genital system and obstetric disorders 31 weeks gestation of ([facility]) state, incidental Supervision of high risk in third trimester ([facility])- Primary Unspecified high-risk Pre-existing type 2 diabetes mellitus in in third trimester ([facility]) Diabetes mellitus of mother, complicating , childbirth, or the puerperium, unspecified as to episode of care Exposure to parvovirus Contact with or exposure to other viral diseases History of pre-eclampsia Personal history of other genital system and obstetric disorders Pre-existing type 2 diabetes mellitus in in third trimester ([facility])- Primary Diabetes mellitus of mother, complicating , childbirth, or the puerperium, unspecified as to episode of care History of pre-eclampsia Personal history of other genital system and obstetric disorders H/O macrosomia in infant in prior , currently ([facility]) with other poor obstetric history 33 weeks gestation of ([facility]) state, incidental Request for sterilization Herpes simplex type 2 (HSV-2) infection affecting , antepartum, unspecified trimester ([facility]) History of herpes genitalis- Primary Personal history of other infectious and parasitic disease Pre-existing type 2 diabetes mellitus in in third trimester ([facility]) Diabetes mellitus of mother, complicating , childbirth, or the puerperium, unspecified as to episode of care History of pre-eclampsia Personal history of other genital system and obstetric disorders 36 weeks gestation of ([facility]) state, incidental 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, 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, 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 alf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 ([facility] Primary [facility] Diagnosis Acute chest pain- Primary Unspecified chest pain documented in this encounter [facility] Work Phone: Evaluation note* Diagnosis Pre-existing type 2 diabetes mellitus in in first trimester ([facility])- Primary Diabetes mellitus of mother, complicating , childbirth, or the puerperium, unspecified as to episode of care History of pre-eclampsia Personal history of other genital system and obstetric disorders H/O macrosomia in in prior , currently ([facility]) with other poor obstetric history 17 weeks gestation of ([facility]) state, incidental Encounter for screening for malformation using ultrasound ([facility]) Obesity affecting in first trimester, unspecified obesity type ([facility])- Primary Herpes simplex type 2 (HSV-2) infection affecting , antepartum, unspecified trimester ([facility]) Pre-existing type 2 diabetes mellitus in in first trimester ([facility]) Diabetes mellitus of mother, complicating , childbirth, or the puerperium, unspecified as to episode of care 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 Encounter for supervision of high risk in first trimester, antepartum ([facility]) 21 weeks gestation of ([facility]) state, incidental Pre-existing type 2 diabetes mellitus in in first trimester ([facility])- Primary Diabetes mellitus of mother, complicating , childbirth, or the puerperium, unspecified as to episode of care Obesity affecting in first trimester, unspecified obesity type ([facility]) History of pre-eclampsia Personal history of other genital system and obstetric disorders H/O macrosomia in infant in prior , currently ([facility]) with other poor obstetric history History of bipolar disorder Personal history of affective disorder 21 weeks gestation of ([facility]) state, incidental Encounter for anatomic survey ([facility]) Encounter for anatomic survey Supervision of high risk in third trimester ([facility])- Primary Unspecified high-risk History of pre-eclampsia Personal history of other genital system and obstetric disorders 29 weeks gestation of ([facility]) state, incidental Pre-existing type 2 diabetes mellitus in in third trimester ([facility]) Diabetes mellitus of mother, complicating , childbirth, or the puerperium, unspecified as to episode of care 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 Pre-existing type 2 diabetes mellitus in in first trimester ([facility]) Diabetes mellitus of mother, complicating , childbirth, or the puerperium, unspecified as to episode of care Tobacco smoking complicating in first trimester ([facility]) Tobacco use disorder complicating , childbirth, or the puerperium, antepartum condition or complication History of recurrent UTI (urinary tract infection) Personal history of urinary (tract) infection 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, 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, 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 ([facility]) Herpes simplex type 2 (HSV-2) infection affecting , antepartum, unspecified trimester ([facility]) Supervision of high risk in third trimester ([facility])- Primary Unspecified high-risk Pre-existing type 2 diabetes mellitus in in third trimester ([facility]) Diabetes mellitus of mother, complicating , childbirth, or the puerperium, unspecified as to episode of care Herpes simplex type 2 (HSV-2) infection affecting , antepartum, unspecified trimester ([facility]) H/O macrosomia in infant in prior , currently ([facility]) with other poor obstetric history History of pre-eclampsia Personal history of other genital system and obstetric disorders 31 weeks gestation of ([facility]) state, incidental Supervision of high risk in third trimester ([facility])- Primary Unspecified high-risk Pre-existing type 2 diabetes mellitus in in third trimester ([facility]) Diabetes mellitus of mother, complicating , childbirth, or the puerperium, unspecified as to episode of care Exposure to parvovirus Contact with or exposure to other viral diseases History of pre-eclampsia Personal history of other genital system and obstetric disorders Pre-existing type 2 diabetes mellitus in in third trimester ([facility])- Primary Diabetes mellitus of mother, complicating , childbirth, or the puerperium, unspecified as to episode of care History of pre-eclampsia Personal history of other genital system and obstetric disorders H/O macrosomia in infant in prior , currently ([facility]) with other poor obstetric history 33 weeks gestation of ([facility]) state, incidental Request for sterilization Herpes simplex type 2 (HSV-2) infection affecting , antepartum, unspecified trimester ([facility]) History of herpes genitalis- Primary Personal history of other infectious and parasitic disease Pre-existing type 2 diabetes mellitus in in third trimester ([facility]) Diabetes mellitus of mother, complicating , childbirth, or the puerperium, unspecified as to episode of care History of pre-eclampsia Personal history of other genital system and obstetric disorders 36 weeks gestation of ([facility]) state, incidental Gastritis with hemorrhage, unspecified chronicity, unspecified gastritis type- Primary Nausea and vomiting, unspecified vomiting type Gastro-esophageal reflux disease without esophagitis Esophageal reflux SHIRA (generalized anxiety disorder) Generalized anxiety disorder [facility] Diagnosis Exercise-induced asthma- Primary Exercise induced bronchospasm Hyperglycemia due to diabetes mellitus (Multi) Anxiety and depression documented in this encounter [facility] Work Phone: Evaluation note* Diagnosis Pre-existing type 2 diabetes mellitus in in first trimester ([facility] Primary Diabetes mellitus of mother, complicating , childbirth, or the puerperium, unspecified as to episode of care History of pre-eclampsia Personal history of other genital system and obstetric disorders H/O macrosomia in in prior , currently ([facility]) with other poor obstetric history 17 weeks gestation of ([facility]) state, incidental Encounter for screening for malformation using ultrasound ([facility]) Obesity affecting in first trimester, unspecified obesity type ([facility])- Primary Herpes simplex type 2 (HSV-2) infection affecting , antepartum, unspecified trimester ([facility]) Pre-existing type 2 diabetes mellitus in in first trimester ([facility]) Diabetes mellitus of mother, complicating , childbirth, or the puerperium, unspecified as to episode of care 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 Encounter for supervision of high risk in first trimester, antepartum ([facility]) 21 weeks gestation of ([facility]) state, incidental Pre-existing type 2 diabetes mellitus in in first trimester ([facility])- Primary Diabetes mellitus of mother, complicating , childbirth, or the puerperium, unspecified as to episode of care Obesity affecting in first trimester, unspecified obesity type ([facility]) History of pre-eclampsia Personal history of other genital system and obstetric disorders H/O macrosomia in in prior , currently ([facility]) with other poor obstetric history History of bipolar disorder Personal history of affective disorder 21 weeks gestation of ([facility]) state, incidental Encounter for anatomic survey ([facility]) Encounter for anatomic survey Supervision of high risk in third trimester ([facility])- Primary Unspecified high-risk History of pre-eclampsia Personal history of other genital system and obstetric disorders 29 weeks gestation of ([facility]) state, incidental Pre-existing type 2 diabetes mellitus in in third trimester ([facility]) Diabetes mellitus of mother, complicating , childbirth, or the puerperium, unspecified as to episode of care 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 Pre-existing type 2 diabetes mellitus in in first trimester ([facility]) Diabetes mellitus of mother, complicating , childbirth, or the puerperium, unspecified as to episode of care Tobacco smoking complicating in first trimester ([facility]) Tobacco use disorder complicating , childbirth, or the puerperium, antepartum condition or complication History of recurrent UTI (urinary tract infection) Personal history of urinary (tract) infection 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, 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, 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 ([facility]) Herpes simplex type 2 (HSV-2) infection affecting , antepartum, unspecified trimester ([facility]) Supervision of high risk in third trimester ([facility])- Primary Unspecified high-risk Pre-existing type 2 diabetes mellitus in in third trimester ([facility]) Diabetes mellitus of mother, complicating , childbirth, or the puerperium, unspecified as to episode of care Herpes simplex type 2 (HSV-2) infection affecting , antepartum, unspecified trimester ([facility]) H/O macrosomia in infant in prior , currently ([facility]) with other poor obstetric history History of pre-eclampsia Personal history of other genital system and obstetric disorders 31 weeks gestation of ([facility]) state, incidental Supervision of high risk in third trimester ([facility])- Primary Unspecified high-risk Pre-existing type 2 diabetes mellitus in in third trimester ([facility]) Diabetes mellitus of mother, complicating , childbirth, or the puerperium, unspecified as to episode of care Exposure to parvovirus Contact with or exposure to other viral diseases History of pre-eclampsia Personal history of other genital system and obstetric disorders Pre-existing type 2 diabetes mellitus in in third trimester ([facility])- Primary Diabetes mellitus of mother, complicating , childbirth, or the puerperium, unspecified as to episode of care History of pre-eclampsia Personal history of other genital system and obstetric disorders H/O macrosomia in infant in prior , currently ([facility]) with other poor obstetric history 33 weeks gestation of ([facility]) state, incidental Request for sterilization Herpes simplex type 2 (HSV-2) infection affecting , antepartum, unspecified trimester ([facility]) History of herpes genitalis- Primary Personal history of other infectious and parasitic disease Pre-existing type 2 diabetes mellitus in in third trimester ([facility]) Diabetes mellitus of mother, complicating , childbirth, or the puerperium, unspecified as to episode of care History of pre-eclampsia Personal history of other genital system and obstetric disorders 36 weeks gestation of ([facility] state, incidental Insulin controlled gestational diabetes mellitus (GDM) in first trimester ([facility]) documented in this encounter [facility] note* Diagnosis Pre-existing type 2 diabetes mellitus in in first trimester ([facility])- Primary Diabetes mellitus of mother, complicating , childbirth, or the puerperium, unspecified as to episode of care History of pre-eclampsia Personal history of other genital system and obstetric disorders H/O macrosomia in infant in prior , currently ([facility]) with other poor obstetric history 17 weeks gestation of ([facility]) state, incidental Encounter for screening for malformation using ultrasound ([facility]) Obesity affecting in first trimester, unspecified obesity type ([facility])- Primary Herpes simplex type 2 (HSV-2) infection affecting , antepartum, unspecified trimester ([facility]) Pre-existing type 2 diabetes mellitus in in first trimester ([facility]) Diabetes mellitus of mother, complicating , childbirth, or the puerperium, unspecified as to episode of care 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 Encounter for supervision of high risk in first trimester, antepartum ([facility]) 21 weeks gestation of ([facility]) state, incidental Pre-existing type 2 diabetes mellitus in in first trimester ([facility])- Primary Diabetes mellitus of mother, complicating , childbirth, or the puerperium, unspecified as to episode of care Obesity affecting in first trimester, unspecified obesity type ([facility]) History of pre-eclampsia Personal history of other genital system and obstetric disorders H/O macrosomia in in prior , currently ([facility]) with other poor obstetric history History of bipolar disorder Personal history of affective disorder 21 weeks gestation of ([facility]) state, incidental Encounter for anatomic survey ([facility]) Encounter for anatomic survey Supervision of high risk in third trimester ([facility])- Primary Unspecified high-risk History of pre-eclampsia Personal history of other genital system and obstetric disorders 29 weeks gestation of ([facility]) state, incidental Pre-existing type 2 diabetes mellitus in in third trimester ([facility]) Diabetes mellitus of mother, complicating , childbirth, or the puerperium, unspecified as to episode of care 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 Pre-existing type 2 diabetes mellitus in in first trimester ([facility]) Diabetes mellitus of mother, complicating , childbirth, or the puerperium, unspecified as to episode of care Tobacco smoking complicating in first trimester ([facility]) Tobacco use disorder complicating , childbirth, or the puerperium, antepartum condition or complication History of recurrent UTI (urinary tract infection) Personal history of urinary (tract) infection 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, 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, 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 ([facility] - [place]) Herpes simplex type 2 (HSV-2) infection affecting , antepartum, unspecified trimester ([facility] Supervision of high risk in third trimester ([facility] Primary Unspecified high-risk Pre-existing type 2 diabetes mellitus in in third trimester ([facility]) Diabetes mellitus of mother, complicating , childbirth, or the puerperium, unspecified as to episode of care Herpes simplex type 2 (HSV-2) infection affecting , antepartum, unspecified trimester ([facility]) H/O macrosomia in infant in prior , currently ([facility]) with other poor obstetric history History of pre-eclampsia Personal history of other genital system and obstetric disorders 31 weeks gestation of ([facility]) state, incidental Supervision of high risk in third trimester ([facility] Primary Unspecified high-risk Pre-existing type 2 diabetes mellitus in in third trimester ([facility] [place]) Diabetes mellitus of mother, complicating , childbirth, or the puerperium, unspecified as to episode of care Exposure to parvovirus Contact with or exposure to other viral diseases History of pre-eclampsia Personal history of other genital system and obstetric disorders Pre-existing type 2 diabetes mellitus in in third trimester ([facility] [place] Primary Diabetes mellitus of mother, complicating , childbirth, or the puerperium, unspecified as to episode of care History of pre-eclampsia Personal history of other genital system and obstetric disorders H/O macrosomia in infant in prior , currently ([facility]) with other poor obstetric history 33 weeks gestation of ([facility]) state, incidental Request for sterilization Herpes simplex type 2 (HSV-2) infection affecting , antepartum, unspecified trimester ([facility]) History of herpes genitalis- Primary Personal history of other infectious and parasitic disease Pre-existing type 2 diabetes mellitus in in third trimester ([facility] [place]) Diabetes mellitus of mother, complicating , childbirth, or the puerperium, unspecified as to episode of care History of pre-eclampsia Personal history of other genital system and obstetric disorders 36 weeks gestation of (HCC) state, incidental Bacterial sinusitis- Primary Unspecified sinusitis (chronic) Nausea Nausea alone Postnasal drip documented in this [facility] Diagnosis Cough, unspecified type- Primary Acute upper respiratory infection Acute upper respiratory infections of unspecified site [facility] Diabetic gastroparesis associated with type 2 diabetes mellitus (Multi)- Primary Type II or unspecified type diabetes mellitus with neurological manifestations, not stated as uncontrolled Anxiety and depression Gastroesophageal reflux disease, 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 esophagitis present documented in this encounter [facility] Work Phone: History and physical note Author Mariajose Nickerson [facility] Note Date/Time October 16, 2024 8:00p m [facility] Medical Records Department [address] [place] [address] OB Triage Physician Note 10/16/24 1838 MR#: [id number] Acct: [id number] Name: MELISSA BYRNE Rep #:[id number] : 1995 29 From: Mariajose Nickerson CNM PCP: Dr. Jamari Byrne MD Status:REG CLI Y Location: [id number] HPI - General HPI Narrative MELISSA BYRNE, is a 29 F at 31 weeks gestation who presents with lower abdominal pain and tightening. Denies any loss of fluid or vaginal bleeding. Maternal Data Information ADA Calculator Estimated Delivery Date Method Current WG Current Estimate 12/18/24 Manual 31w [facility]d [facility] Medical History Seizures Asthma Osteoarthritis Diabetes Home [...] Nickerson; Dr. Jamari Byrne MD ~ Signed [facility] Work Phone: History and physical note Author Mariajose Nickerson [facility] Note Date/Time December 16, 2024 8:47 pm [facility] Medical Records Department [address] [place] [address] OB Triage Physician Note 12/16/242022 MR#: [id number] Acct: [id number] Name: MELISSA BYRNE Rep #:[id number] : 1995 29 From: Mariajose Nickerson CNM PCP: Dr. Jamari Byrne MD Status:REG CLI Y Location: [place] [id number] HPI - General HPI Narrative MELISSA BYRNE, [...] Nickerson; Dr. Jamari Byrne MD ~ Signed [facility] Work Phone: History of Present illness Narrative* Patient is here today for psych hospital follow up * Patient states that she has been under more stress lately, she apparently was talking to multiple different guys, quit all of her medications for a month, she bough kits on [employer] to tatoo herself. She had been at counseling and she had told her counselor that she was thinking about hurting herself. Sister thought she was more on the manic end of the spectrum. She was just discharged on Friday.she will see her counselor tomorrow and she has an upcoming appt with the psychiatrist on November 07. * She was admitted to [facility] for 5 days. She is currently on Prozac 40mg po daily * She had stopped taking her diabetes meds also. She is back on the metformin 1000mg po daily. She was needing short acting insulin in the hospital. * Pt gve her glucometer to her dad so has not been able to check her blood sugars. [facility] Work Phone: History of Present illness NarrativePatient is a 26-year-old who comes in for test of cure for chlamydia and trichomoniasis. Patient reports that she did take the medication Flagyl and the powdered Zithromax. She has also informed her sexual partners. [facility] currently [facility] [address] [place] Work Phone: Hospital Discharge instructions* Attachments The following attachments cannot be sent through Care Everywhere. * Urinary tract infections in ([place]) * Genital Herpes Discharge Instructions ([place]) [facility] Work Phone: Hospital Discharge instructions* Attachments The following attachments cannot be sent through Care Everywhere. * Flu Discharge Instructions, Adult ([place]) [facility] Work Phone: Hospital Discharge instructions Additional Instructions [facility] Work Phone: Hospital Discharge instructionsAdditional Instructions Date of Discharge: 12/09/24[facility] Work Phone: Hospital Discharge instructionsAdditional Instructions Keep follow up appointment with Dr Gramajo next Friday. Return to the hospital for any worsening symptoms.[facility] Work Phone: Hospital Discharge instructionsAdditional Instructions Please continue all your home medication as directed by your doctor and return to the ER should you have any further concerns or worsening of symptomsWKind[facility] Work Phone: Hospital Discharge instructions* Attachments The following attachments cannot be sent through Care Everywhere. * Chest Pain, Adult ED ([place]) [facility] Work Phone: Instructions* Attachments The following attachments cannot be sent through Care Everywhere. * URI (Upper Respiratory Infection) ([place]) documented in this encounterParkwood HospitalReason for referral (narrative)* Consultation (Routine) - Authorized Specialty Diagnoses / Procedures Referred By Contac t Referred To Contact Dermatology Diagnoses Necrobiosis lipoidica Jamari Byrne MD [address] [facility], [place] [address] [place] [address] Radha Patel MD [address] [facility] [place] [address] Referral ID Status Reason Start Date Expiration Date Visits Requested Visits Authorized [id number] Authorized Specialty Services Required 12/25/2023 12/24/2024 1 1 [facility] Work Phone: Reason for referral (narrative)* Outpatient Procedure (Routine) - New Request Specialty Diagnoses / Procedures Referred By Contac t Referred To Contact [facility] Diagnoses Pre-existing type 2 diabetes mellitus in in first trimester [place] [address] [place] [address] [facility] [address] [place] [address] Referral ID Status Reason Start Date Expiration Date Visits Requested Visits Authorized [id number] New Request Auto-Generat ed Referral 06/15/2024 06/15/2025 1 1 [facility] for referral (narrative)* Diagnostic Procedure Only (Routine) - Authorized Specialty Diagnoses / Procedures Referred By Contac t Referred To Contact [facility] Diagnoses Encounter for anatomic survey Procedures OBSTETRIC ULTRASOUND WHI US PREG UTERUS AFTER 1ST TRIMEST GESTATION William Gramajo MD [address] [place] [address] [facility] [address] [place] [address] Referral ID Status Reason Start Date Expiration Date Visits Requested Visits Authorized [id number] Authorized Auto-Generat ed Referral 07/13/2024 07/13/2025 1 1 [facility] for referral (narrative)No reason for referral information availableWKindred Hospital [facility] Work Phone: Reason for visit Narrative* Transition of Care (Routine) - Closed Specialty Diagnoses / Procedures Referred By Shell lucia Referred To Contact Diagnoses complication before (HCC) Procedures MPOWER CONSULT William Gramajo MD [address] [place] [address] Phone: tel: fax: Referral ID Status Reason Start Date Expiration Date V isits Requested Visits Authorized [id number] Closed PCP Requested Referral 09/13/2024 09/13/2025 1 1 [facility] for visit Narrative* Diagnostic Procedure Only (Routine) - Closed Specialty Diagnoses / Procedures Referred By Shell lucia Referred To Contact [facility] Diagnoses Supervision of high risk in third trimester (HCC) Pre-existing type 2 diabetes mellitus in in first trimester (HCC) Procedures BIOPHYSICAL PROFILE US [facility] BIOPHYSICAL PROFILE NON-STRESS TESTING Piper Julian MD [address] [place] [address] Phone: tel: fax: [facility] [address] [place] [address] Referral ID Status Reason Start Date Expiration Date V isits Requested Visits Authorized [id number] Closed Auto-Generate d Referral 10/05/2024 10/05/2025 10 1 [facility] Summary Purpose Family History No Family History [...] Dates Details Family history of TBI (traum at brain injury)(854.00, S06.9X9A) Status:Active Sibling Name Dates [...] FoundDocuments on File Type Date Recorded Patient Loan Documents Closer Expl anation Advance Directives and Livin g Will 02/10/2019 5:53 PM Documents on File Type Date Recorded Patient Loan Documents Closer Expl anation Advance Directives and Livin g Will 03/21/2019 11:25 PM Documents on File Type Date Recorded Patient Loan Documents Closer Expl anation Advance Directives and Livin g Will 03/21/2019 11:25 PM Documents on File Type Date Recorded Patient Loan Documents Closer Expl anation Advance Directives and Livin g Will 07/19/2020 11:25 PM Documents on File Type Date Recorded Patient Loan Documents Closer Expl anation Advance Directives and Livin g Will 07/19/2020 11:25 PM Documents on File Type Date Recorded Patient Loan Documents Closer Expl anation Advance Directives and Livin g Will 03/11/2019 11:43 AM Advance Directive Response Recorded Date/ Time Do you have a Healthcare Power of Crane Assembler? No December 07, 2024 1:05pm Advance Directive Response Recorded Date/ Time Do you have a Healthcare Power of Crane Assembler? No December 07, 2024 1:05pm Do you have a Healthcare Power of Crane Assembler? No January 20, 2025 10:57pm Advance Directive Response Recorded Date/ Time Do you have a Healthcare Power of Crane Assembler? No December 07, 2024 1:05pm Do you have a Healthcare Power of Crane Assembler? No January 20, 2025 10:57pm Do you have a Healthcare Power of Crane Assembler? No January 23, 2025 9:59pm Advance Directive Response Recorded Date/ Time Do you have a Healthcare Power of Crane Assembler? No January 26, 2025 6:52pm Do you have a Healthcare Power of Crane Assembler? No December 07, 2024 1:05pm Do you have a Healthcare Power of Crane Assembler? No January 20, 2025 10:57pm Do you have a Healthcare Power of Crane Assembler? No January 23, 2025 9:59pm Discharge Instructions * Attachments The following attachments cannot be sent through Care Everywhere. * Abdominal Pain, Adult ([place]) * Diabetes with High Blood Sugar ([place]) documented in this encounter* Instructions* Camilo June PA-C - 02/10/2019 CONTACT YOUR PSYCHIATRIST'S OFFICE IN [place] TOMORROW MORNING TO INFORM THE STAFF OF YOUR EVALUATION IN THE EMERGENCY DEPARTMENT AND NEED FOR AN APPOINTMENT. * Attachments The following attachments cannot be sent through Care Everywhere. * Mood Disorders: General Info ([place]) documented in this encounter* Instructions* Claude Peralta MD - 03/21/2019 If symptoms do not improve consult with your doctor Return to ER as needed documented in this encounter* Attachments The following attachments cannot be sent through Care Everywhere. * URI (Upper Respiratory Infection) ([place]) * Hyperglycemia: General Info ([place]) documented in this encounter* Attachments The following attachments cannot be sent through Care Everywhere. * Anxiety Disorder ([place]) documented in this encounter* Instructions* Hailey Paiz CNP - 10/05/2018 Follow-up with your PCP in the next 1 to 2 days for further evaluation of your diabetes. * Attachments The following attachments cannot be sent through Care Everywhere. * Diabetes: Sick Care ([place]) * Glycemic Index: General Info ([place]) * Diabetes: Type 2: General Info ([place]) * Diabetes: Heart Disease: General Info ([place]) * Hyperglycemia: General Info ([place]) documented in this encounter Assessments Diagnosis Lower [...] PSG SEIZURE MONTAGE Maty Chavez MD [address] [place] [address] [address] [place] [id number] Status Reason Specialty Diagnoses / Procedures Referred By Contact Referred To Contact Pending Review Specialty Services Required/Patien t's Best Interest Neurology Diagnoses Seizure (HCC) Procedures EEG (Standard) Srini Medina MD [address] [place] [address] Eeg Neuro[facility] [address] [place] [id number] Status Reason Specialty Diagnoses / Procedures Referred By Contact Referred To Contact Authorized Sleep Medicine Diagnoses Seizure (HCC) Srini Medina MD [address] [address] Maty Chavez MD [address] [place] [address] Specialty Diagnoses / Procedures Referred By Contac t Referred To Contact Diagnoses Insulin controlled gestational diabetes mellitus (GDM) in first trimester Procedures ENDOCRINOLOGY DIETITIAN VISIT (MNT) MEDICAL NUTRITION ASSMT&IVNTJ INDIV EACH 15 [place] MEDICAL NUTRITION ASSMT&IVNTJ INDIV EACH 15 [place] MEDICAL NUTRITION ASSMT&IVNTJ INDIV EACH 15 [place] MEDICAL NUTRITION ASSMT&IVNTJ INDIV EACH 15 [place] Kelsy Guillermo, [address] [place] [address] Referral ID Status Reason Start Date Expiration Date Visits Requested Visits Authorized [id number] Authorized PCP Requested Referral 4 05/03/2025 1 1 Specialty Diagnoses / Procedures Referred By Contac t Referred To Contact Diagnoses Encounter for supervision of high risk in first trimester, antepartum H/O macrosomia in infant in prior , currently Pre-existing type 2 diabetes mellitus in in first trimester History of pre-eclampsia Procedures CONSULT TO MATERNAL MEDI OFFICE/OUTPATIENT [facility] 60 MINUTES Zayda Parker APRN.CNP [address] [address] Referral ID Status Reason Start Date Expiration Date Visits Requested Visits Authorized [id number] Authorized PCP Requested Referral Auto-Generate d Referral 4 05/07/2025 1 1 Specialty Diagnoses / Procedures Referred By Contac t Referred To Contact [facility] Diagnoses with uncertain dates in first trimester Procedures NUCHAL TRANSLUCENCY WHI US NUCHAL TRANSLUCENCY 1ST GESTATION Zayda Parker APRN.BLEACHER PULP [address] [place] [address] [place] [address] [place] [address] Referral ID Status Reason Start Date Expiration Date Visits Requested Visits Authorized [id number] Authorized Auto-Generat ed Referral 4 05/07/2025 1 1 Specialty Diagnoses / Procedures Referred By Contac t Referred To Contact [facility] Diagnoses with uncertain dates in first trimester Procedures OBSTETRIC ULTRASOUND WHI US PREG UTERUS AFTER 1ST TRIMEST 1/ GESTATION Zayda Parker APRN.BLEACHER PULP [address] [place] [address] [place] [address] [place] [address] Referral ID Status Reason Start Date Expiration Date Visits Requested Visits Authorized [id number] New Request Auto-Generat ed Referral 4 05/07/2025 [...] or abnormal muscle tone. Coordination: Coordination normal. Fnxtcf-Dsus-Mwxnvp Test normal. Gait: Gait is intact. Gait [...] time. Impression/diagnosis, plans were explained and discussed. [place] seizure precautions. Avoid triggers and precipitating factors. [...] Portions of this chart was created using [employer] voice recognition software. Occasional wrong-word or "sound-like" substitutions may have occurred due to inherent [...] last pap was 3-4 years ago in [place] that the patient states was normal. She [...] gestation of September 242024 1:48pm Uterine irritability [place] 18th, 2025 1: 48pm 31 weeks gestation of October [...] section and content) DATE CREATED AUTHOR 12/02/2017 [facility] DATE CREATED AUTHOR AUTHOR'S ORGANIZ ATION 12/17/2017 [facility] DATE CREATED AUTHOR AUTHOR'S ORGANIZ ATION 01/24/2018 [facility] DATE CREATED AUTHOR AUTHOR'S ORGANIZ ATION 05/18/2018 [facility] DATE CREATED AUTHOR AUTHOR'S ORGANIZ ATION 07/29/2018 [facility] DATE CREATED AUTHOR AUTHOR'S ORGANIZ ATION 01/02/2019 [facility] DATE CREATED AUTHOR AUTHOR'S ORGANIZ ATION 03/18/2020 [facility] DATE CREATED AUTHOR AUTHOR'S ORGANIZ ATION 07/05/2020 [facility] DATE CREATED AUTHOR AUTHOR'S ORGANIZ ATION 07/20/2020 [facility] DATE CREATED AUTHOR AUTHOR'S ORGANIZ ATION 08/05/2021 [facility] DATE CREATED AUTHOR AUTHOR'S ORGANIZ ATION 10/28/2021 [facility] DATE CREATED AUTHOR AUTHOR'S ORGANIZ ATION 05/31/2022 [facility] DATE CREATED AUTHOR AUTHOR'S ORGANIZ ATION 08/18/2022 [facility] DATE CREATED AUTHOR AUTHOR'S ORGANIZ ATION 12/04/2022 [facility] DATE CREATED AUTHOR AUTHOR'S ORGANIZ ATION 04/19/2024 [facility] DATE CREATED AUTHOR AUTHOR'S ORGANIZ ATION 04/26/2024 [facility] DATE CREATED AUTHOR AUTHOR'S ORGANIZ ATION 10/15/2024 [facility] DATE CREATED AUTHOR AUTHOR'S ORGANIZ ATION 11/07/2024 [facility] DATE CREATED AUTHOR AUTHOR'S ORGANIZ ATION 01/30/2025 [facility] ical Center DATE CREATED AUTHOR AUTHOR'S ORGANIZ ATION 02/22/2025 [facility] DATE CREATED AUTHOR AUTHOR'S ORGANIZ ATION 03/13/2025 [facility] DATE CREATED AUTHOR AUTHOR'S ORGANIZ ATION 03/14/2025 [facility] DATE CREATED AUTHOR AUTHOR'S ORGANIZ ATION 03/18/2025 [facility] DATE CREATED AUTHOR AUTHOR'S ORGANIZ ATION 04/09/2025 [facility] Reason for Visit (unrecogniz ed section and content) Reason Comments Abdominal Pain lower abs pain x 7 d ays, nausea no vomitting. Reason Comments Suicidal Reason Comments Nausea Abdominal Pain lower abdomen Status Reason Specialty Diagnoses / Procedures Referred By Contact Referred To Contact Closed Sleep Medicine Diagnoses MG (obstructive sleep apnea) MG Procedures PSG SEIZURE Maty Frost MD [address] [place] [address] Sleep Medicine [address] [place] [address] Status Reason Specialty Diagnoses / Procedures Referred By Contact Referred To Contact Pending Review Specialty Services Required/Patien t's Best Interest Neurology Diagnoses Seizure (HCC) Procedures EEG (Standard) Srini Medina MD [address] [facility] [address] [place] [address] [facility] [address] [place] [address] Reason Comments Shortness of Breath has been [...] Diagnoses Seizure (HCC) Rich Ng, DO [address] [place] [address] Srini Medina MD [address] [address] Reason Comments Mental Health Problem Reason Comments Shortness of Breath Nausea Palpitations Reason Comments Vaginitis Itching, some burnin g, white discharge sometimes yellow, denies urine frequency or urgency, would like to do a STI screening also Reason Comments 3 month Specialty Diagnoses / Procedures Referred By Shell lucia Referred To Contact Primary Care Procedures Follow Up In Primary Care Jamari Byrne MD [address] [facility] [address] [place] [address] Referral ID Status Reason Start Date Expiration Date V isits Requested Visits Authorized [id number] Authorized 09/09/2022 03/08/2023 1 1 Reason Comments [...] trimester Procedures CONSULT TO ENDOCRINOLOGY OFFICE/OUTPATIENT [facility] 60 MINUTES William Gramajo MD [address] [place] [address] Referral ID Status Reason Start Date Expiration Date V isits Requested Visits Authorized [id number] Closed PCP Requested Referral 04/20/2024 04/20/2025 1 [...] Referred By Shell lucia Referred To Contact [facility] Diagnoses with uncertain dates in first trimester Procedures NUCHAL TRANSLUCENCY WHI US NUCHAL TRANSLUCENCY 1ST GESTATION Zayda Parker APRN.BLEACHER PULP [address] [place] [address] [address] Referral ID Status Reason Start Date Expiration Date V isits Requested Visits Authorized [id number] Closed Auto-Generat ed Referral Patient Cleared - [...] ESTABLISHED HIGH MDM 40 MIN Zayda Parker APRN.BLEACHER PULP [address] [place] [address] [facility] [address] [place] [address] Referral ID Status Reason Start Date Expiration Date Visits Requested Visits Authorized [id number] Authorized PCP Requested Referral Auto-Generate d Referral 06/09/2024 06/08/2025 99 99 Reason Comments Medical Nutrition Therapy Reason Comments OB Cramping Reason Comments Cough C/o cough and vomiti ng since yesterday. Also c/o fever. States she is approx 15 wks preg. Reason Comments OB Influenza Specialty Diagnoses / Procedures Referred By Shell t Referred To Contact [facility] Diagnoses with uncertain dates in first trimester Encounter for supervision of normal , unspecified, unspecified trimester Procedures OBSTETRIC ULTRASOUND WHI US PREG UTERUS AFTER 1ST TRIMEST GESTATION Zayda Parker APRN.BLEACHER PULP [address] [place] [address] [address] Referral ID Status Reason Start Date Expiration Date Visits Requested Visits Authorized [id number] Authorized Auto-Generat ed Referral 06/29/2024 06/08/2025 20 20 Reason Onset Date Comments Care 07/13/2024 Reason Comments Refill Request Reason Comments Vaginal Problem Reason Comments Follow Up Gestational Diabetes Specialty Diagnoses / Procedures Referred By Contac t Referred To Contact [facility] Diagnoses Encounter for anatomic survey Procedures OBSTETRIC ULTRASOUND WHI US PREG UTERUS AFTER 1ST TRIMEST GESTATION William Gramajo MD [address] [place] [address] Phone: tel: fax: [facility] [address] [place] [id number] Referral ID Status Reason Start Date Expiration Date V isits Requested Visits Authorized [id number] Closed Auto-Generate d Referral 07/13/2024 07/13/2025 1 1 Reason Onset Date Comments Care 08/10/2024 Reason Comments returning your call Reason Comments Patient Request Reason Comments Patient Question Specialty Diagnoses / Procedures Referred By Contac t Referred To Contact [facility] Diagnoses Obesity affecting in first trimester, unspecified obesity type (HCC) Pre-existing type 2 diabetes mellitus in in first trimester (HCC) Procedures OBSTETRIC ULTRASOUND WHI US PREG UTERUS AFTER 1ST TRIMEST GESTATION William Gramajo MD [address] [place] [address] Phone: tel: fax: [facility] [address] [place] [id number] Referral ID Status Reason Start Date Expiration Date V isits Requested Visits Authorized [id number] Closed Auto-Generate d Referral 08/10/2024 08/10/2025 4 [...] risk in third trimester ([facility]) Procedures ECG COMPLETE ECG ROUTINE ECG W/LEAST 12 LDS W/I&R Piper Julian MD [address] [place] [address] Phone: tel: fax: [facility] [address] [place] [id number] Referral ID Status Reason Start Date Expiration Date V isits Requested Visits Authorized [id number] Closed Auto-Generate d Referral 10/04/2024 10/04/2025 1 1 Reason Onset Date Comments Care 11/02/2024 Reason Comments Breast Pump Reason Onset Date Comments Care 11/05/2024 Specialty Diagnoses / Procedures Referred By Contac t Referred To Contact [facility] Diagnoses Supervision of high risk in third trimester ([facility]) Pre-existing type 2 diabetes mellitus in in first trimester ([facility]) Procedures BIOPHYSICAL PROFILE US I BIOPHYSICAL PROFILE NON-STRESS TESTING Piper Julian MD [address] [place] [address] Phone: tel: fax: [facility] [address] [place] [id number] Referral ID Status Reason Start Date Expiration Date V isits Requested Visits Authorized [id number] Closed Auto-Generate d Referral 10/05/2024 10/05/2025 10 [...] 01/24/25 [facility]; chest pain; EKG done01/29/25 [facility]; acute sinusitis, URI Reason Comments insulin concern [...] Consult Notes (unrecognized section and content) ED Broaching Machine Repairer Behavioral Health Initial Assessment Date: 02/10/2019 Time: 7:24 PM Patient Name: Melissa Kaur Date of : 1995 Sex: Female Admit Date/Time: 02/10/2019 5:04 PM GENERAL INFORMATION General Information Decorator Mannequin Needs: Not needed Information Provided By: Patient, Patient Support System: Current Living Arrangements: Lives with and 2 elderly friends Type of Residence: Private residence Name and Contact of Collateral Provider: Jorge () [phone] LEGAL STATUS Voluntary DIAGNOSIS/ACTIVE PROBLEM LIST Hospital [...] that she having those thoughts. Pt reports "I could just feel myself starting to go that direction and it worried me so I came here." Pt denies suicidal/homicidal ideations. Pt reports that she has several coping skills that she is going to use tonight including taking a walk, talking to her , and reading. Pt reports that she is feeling stress because of "family issues." Pt states that her family does not [...] because he will be with her. states, "She knows she can talk to me and if anything changes we will return to the hospital." Pt confirms that she will return to the hospital if she begins to feel worse. Pt denies wanting to admit self to the hospital. Pt was pleasant, cooperative, anxious, and directable. PAST PSYCHIATRIC HISTORY Past Psychiatric History Previous Psychiatric Diagnosis: Depression, Anxiety Previous Psychiatric Medications: Anti-depressants Previous Psychiatric Hospitalizations: [facility] December 2018 Current Psychiatric Medications: Prozac ALCOHOL/DRUG [...] Conflict Resolution (Coping Skills): Yes Cultural and Samaritan Beliefs: Yes Access to Weapons: No TREATMENT [...] Jones, updated. documented in this encounter ED Broaching Machine Repairer Behavioral Health Initial Assessment Date: 03/11/2019 Time: 3:21 PM Patient Name: Melissa Kaur Date of : 1995 Sex: Female Admit Date/Time: 03/11/2019 10:50 AM GENERAL INFORMATION General Information Decorator Mannequin Needs: Not needed Information Provided By: Patient Patient Support System: Current Living Arrangements: Lives with and elderly friends Type of Residence: Private residence Name and Contact of Collateral Provider: Mahendra (Spouse) [phone] LEGAL STATUS Voluntary DIAGNOSIS/ACTIVE PROBLEM LIST Hospital [...] the hospital today because she was having "one of her episodes." Pt states that she has been feeling [...] who is a bully, Agata who is "supernatural", Fatmata who is a lunatic, Addie who is her anger, Aylin who is her calmness, Anu who represents her fear, Sara who is her "inner whore", Paty who is her sadness, Celeste that is her "simple side" and Jayne who is unable to speak [...] she will be attending. Pt follows at [facility] counseling every 2 weeks. Pt sees a counselor and psychiatrist. Pt is prescribed Risperdal and takes it as prescribed. Pt reports she has been hospitalized at [facility] int he past. Pt went to [facility] walk in clinic yesterday to have services set up through them as well. 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 Pt is currently unemployed. PAST PSYCHIATRIC HISTORY Past Psychiatric History Previous Psychiatric Diagnosis: Depression, Pt states schizophrenia Previous Psychiatric Medications: Anti-depressants Previous Psychiatric Hospitalizations: [facility] Current Psychiatric Medications: Risperdal ALCOHOL/DRUG ABUSE HISTORY [...] Conflict Resolution (Coping Skills): Yes Cultural and Samaritan Beliefs: Yes Access to Weapons: No TREATMENT RECOMMENDATIONS AND CLINICAL SUMMARY Treatment Recommendations and Clinical Summary Current Recommendations: Referral for outpatient counseling RATIONALE/PLAN FOR TREATMENT: Spoke to DAYAMI Camacho, about Pt not wanting to stay at the hospital. Gisselle states she does not feel she can completed an involuntary admission on the Pt and will discharge her. Did call [facility] with Pt's permission to see if they could get her an earlier appointment which they could not. Pt again states she will not stay at the hospital and wants to return home. documented in this encounter Clinton Meza - 02/10/2019 6:36 PM EDTBluis, Clinton - 02/10/2019 6:29 PM EDTBluis, Clinton - 02/10/2019 6:27 PM EDTBluis, Clinton - 02/10/2019 5:45 PM EDTBluis, Clinton - 02/10/2019 5:43 PM EDT ED Notes (unrecognized secti on and content) Broaching Machine Repairer in room thirty one Patient in bathroom at this time Bathroom at this time Nurse doing blood draw at this time Nurse in room with patient Patient now in room with PA Camilo Patient changed into agown. PT REPORTS, "THOUGHTS TO HARM SELF. [facility]. TODAY COULDN'T GET A HOLD OF COUNSELOR, DIDN'T KNOW WHAT ELSE TO DO, CAME TO ED FOR HELP." PSA taking Vitals at this time. documented in this encounter ED PROVIDER NOTE [facility] EMERGENCY DEPARTMENT NAME: Melissa Kaur AGE: 24 y.o. : 1995 VISIT DATE: 03/21/2019 CSN: [id number] PCP: Verona Hilliard MD Chief Complaint Patient presents with Nausea Abdominal Pain lower abdomen A 24-year-old coming to emergency room with her significant other concerning about acute intermittent lower abdominal cramps associated with nauseous feeling but no emesis or diarrhea. Patient states she did home test and "there was a faint line." She wants to have a serum test [...] file Gets together: Not on file Attends buddhism service: Not on file Active member of [...] Resp SpO2 Height Weight 03/21/19 2215 5' 3" 70.8 kg (156 lb) 03/21/19 2213 114/77 [...] Yellow Clarity, Urine Hazy (A) Clear Specific [place] 1.020 1.005 - 1.025 pH, Urine 6.0 [...] ED Disposition Condition Comment Discharge Stable Melissa Ean Kaur discharged to home/self care in stable condition. Follow-up Information Follow-up information has not been specified. Contact information for after-discharge care Follow-up information has not been specified. Claude Peralta MD 03/21/19 8943 Pt states abdominal pain, nausea for 3 days with vomiting starting today. documented in this encounter PT AWAKE BUT RESTFUL ON CART. RESPS UNLABORED. NO VISIBLE DISTRESS OBSERVED AND NO C/O VOICED. DISCHARGE COMPLETED. PT RESTFUL WITHOUT C/O OR NEEDS VOICED. WAITING ON COMPLETION OF TEST RESULTS AND RE-EVAL / DISPOSITION. ED PROVIDER NOTE [facility] EMERGENCY DEPARTMENT NAME: Melissa Kaur AGE: 23 y.o. : 1995 VISIT DATE: 10/06/2018 CSN: [id number] PCP: Verona Hilliard MD Chief Complaint Patient presents with Shortness of Breath has been feeling SOB all day Hyperglycemia pt report s high BS, states it was 201 at home HPI patient is a 23-year-old with history of type 2 diabetes xkz-[id number] anxiety depression reactive airway disease who presents [...] 98 14 98 % 10/06/18 2301 5' 3" 80.7 kg (178 lb) Physical Exam Constitutional: [...] Yellow Clarity, Urine Hazy (A) Clear Specific [place] 1.014 1.005 - 1.025 pH, Urine 5.0 [...] Medicine Why: If symptoms worsen [address] [facility] [address] Contact information for after-discharge care Follow-up information has not been specified. Kelsey Stewart MD 10/07/18 0107 PT STATES FEELING A LITTLE BETTER AFTER BREATHING TREATMENT PER RT. STATES IS A LITTLE "JITTERY" FROM BREATHING TREATMENT. UPDATED WAITING ON COMPLETION OF UA (URINE PREG) RESULTS AND PENDING CXR. WARMED BLANKETS GIVEN PER PT REQUEST. RT @ [facility]. PT TO BR TO ATTEMPT URINE SPECIMEN. PT REPORT RECEIVED FROM BRENNAN RN AND RENEE RN. Pt ambulated to 12. Steady gait. Complaint of high BS and SOB. A&Ox3. No distress. Breathing even and unlabored. Lungs clear bilat. Assessment complete. call light in reach. Friends [facility]. Bed: 12 Expected date: Expected time: Means of arrival: Comments: [facility] documented in this encounter Patient was discharged Patient pacing in room at this time RADIO OFFICER bedside [facility] ED PAUL Note: NAME: Melissa Kaur 24 y.o. CSN: [id number] PCP: Verona Hilliard MD History: Chief Complaint: Mental Health Problem HPI: The history was obtained from the patient. Melissa is a 24 y.o. female who presents with a chief complaint of Mental Health Problem. Patient reports she feels stressed and anxious and overwhelmed often. Patient states she has been diagnosed with schizophrenia. Patient reports she had a "episode" today where 1 of the voices in [...] they are currently manageable. Patient goes to [facility] for counseling and psychiatry care. Patient [...] file Gets together: Not on file Attends buddhism service: Not on file Active member of [...] 78 16 97 % 03/11/19 1053 5' 3" 70.8 kg (156 lb) Physical Exam Vitals signs reviewed. Constitutional: Appearance: She is well-developed. HENT: Head: Normocephalic and atraumatic. Nose: Nose normal. Mouth/Throat: Lips: [place]. Mouth: Mucous membranes are moist. Pharynx: Oropharynx [...] Result Value Clarity, Urine Hazy (*) Specific [place] 1.029 (*) Ketones, Urine Trace (*) Urobilinogen, [...] baseline and feels safe to go home. feed in worker called and spoke with [facility] psychiatry zanoni. patient is to keep her follow-up appointment [...] Gisselle Monterroso CNP ED Advanced Practice Provider [facility] Emergency Department (Please note that portions of this note have been completed with a voice recognition software. Efforts were made to correct any errors, but occasionally words are mis-transcribed.) Gisselle Monterroso CNP 03/11/19 1301 Nurse now doing a blood draw ADJUNCT LATIN PROFESSOR was in room with patient Broaching Machine Repairer in room with patient DAYAMI Camacho [facility] [...] removed from the room: IV pole; Nurse windows server engineer Misc. items removed from the room: Removable [...] CRITICAL LAB: GLUCOSE = 460; READBACK COMPLETED; ADJUNCT LATIN PROFESSOR, HAILEY, MADE AWARE. ABG's completed. Patient to ED due to "Heart racing" And SOB. Dizziness and lightheaded noted Ambulated to restroom and backwith stand by assist. States is lightheaded Student Parmedic assisting with IV. Nicholas. Beginning assessments [facility] ED PAUL Note: NAME: Melissa Kaur 23 y.o. CSN: [id number] PCP: Verona Hilliard MD History: Chief Complaint: [...] recent illness. When asked status she states " I do not know " PMHx: Past Medical History: Diagnosis Date Anxiety [...] Oral 96 98 % 10/04/18 1931 5' 3" 80.7 kg (178 lb) Physical Exam Constitutional: [...] Procedure Abnormality Status --------- ------ CBC Auto Differential[[id number]] Final result Please view results for these tests on the individual orders. POC GLUCOSE POC GLUCOSE POC ARTERIAL BLOOD GAS PANEL-PULM - RALS CBC WITH AUTO DIFFERENTIAL XR Chest AP/PA and LAT Non-public Result No acute cardiopulmonary disease. Workstation ID: [id number] MDM: ED Course as of Oct 05 114 Maurice Oct 04, [id number] Glucose: (!!) 442 [SS] [...] home. ELIF Wilhelm ED Advanced Practice Provider [facility] Emergency Department (Please note that portions [...] 14 days? No Have you been/visited a snf in the past two weeks? No Have [...] of the above questions, consult the ordering starbucks barista to determine if patient needs COVID test [...] section and content) Associated Order(s): EEG (STANDARD) [facility] EEG Report Reason for EEG: Spells [...] Care Teams (unrecognized sec tion and content) Customer Security Clerk Relationship Specialty Start Date End Date Marshall Brown MD [facility] [place] [phone] PCP - General 05/15/22 Customer Security Clerk Relationship Specialty Start Date End Date Jamari Byrne MD [address] [facility] [place] [address] PCP - General 11/12/21 Customer Security Clerk Relationship Specialty Start Date End Date Jamari Byrne MD [address] [facility], [place] [phone] PCP - General 11/12/21 Jamari Byrne MD [address] [facility], [place] [address] [place] [phone] PCP - [employer] PCP 10/07/22 Customer Security Clerk Relationship Specialty Start Date End Date Jamari Byrne MD [address] [facility], [place] [address] [place] [phone] PCP - General 11/12/21 Jamari Byrne MD [address] [facility] [place] [address] PCP - [employer] PCP 10/07/22 Customer Security Clerk Relationship Specialty Start Date End Date Jamari Byrne MD [address] [facility] [place] [address] PCP - General 11/12/21 Jamari Byrne MD [address] [facility], [facility] [address] [place] [address] PCP - [employer] ACO PCP 10/07/22 Customer Security Clerk Relationship Specialty Start Date End Date Jamari Byrne MD [address] [place] [phone] PCP - General Family Medicine 08/19/23 Customer Security Clerk Relationship Specialty Start Date End Date Jamari Byrne MD [address] [facility], [facility] [address] [place] [phone] PCP - General 11/12/21 Jamari Byrne MD [address] [facility], [place] [address] [place] [address] PCP - [employer] PCP 10/07/22 Customer Security Clerk Relationship Specialty Start Date End Date Jamari Byrne MD [address] [place] [phone] PCP - General Family Medicine 08/19/23 Customer Security Clerk Relationship Specialty Start Date End Date Jamari Byrne MD [address] [facility], [place] [address] [place] [phone] PCP - General 11/12/21 Jamari Byrne MD [address] [facility], [facility] [address] [place] [phone] PCP - [employer] PCP 10/07/22 Customer Security Clerk Relationship Specialty Start Date End Date Jamari Byrne MD [address] [place] [phone] PCP - General Family Medicine 08/19/23 Customer Security Clerk Relationship Specialty Start Date End Date Jamari Byrne MD [address] [place] [address] PCP - General Family Medicine 08/19/23 Customer Security Clerk Relationship Specialty Start Date End Date Jamari Byrne MD [address] [facility], [place] [address] [place] [phone] PCP - General 11/12/21 Jamari Byrne MD [address] [facility], [place] [address] [place] [address] PCP - [employer] A[employer] PCP 10/07/22 Customer Security Clerk Relationship Specialty Start Date End Date Jamari Byrne MD [address] [place], [id number] PCP - General Family Medicine 08/19/23 Customer Security Clerk Relationship Specialty Start Date End Date Jamari Byrne MD [address] [place] [phone] PCP - General Family Medicine 08/19/23 Customer Security Clerk Relationship Specialty Start Date End Date Jamari Byrne MD [address] [facility], [place] [address] [place], [id number] PCP - General 11/12/21 Jamari Byrne MD [address] [facility], [facility] [address] [place], [id number] PCP - [employer] ACO PCP 10/07/22 Customer Security Clerk Relationship Specialty Start Date End Date Jamari Byrne MD [address] [place] [phone] PCP - General Family Medicine 08/19/23 Customer Security Clerk Relationship Specialty Start Date End Date Jamari Byrne MD [address] [place] [phone] PCP - General Family Medicine 08/19/23 Customer Security Clerk Relationship Specialty Start Date End Date Jamari Byrne MD [address] [place] [phone] PCP - General Family Medicine 08/19/23 Customer Security Clerk Relationship Specialty Start Date End Date Jamari Byrne MD [address] [place] [address] PCP - General Family Medicine 08/19/23 Customer Security Clerk Relationship Specialty Start Date End Date Jamari Byrne MD [address] [place] [phone] PCP - General Family Medicine 08/19/23 Customer Security Clerk Relationship Specialty Start Date End Date Jamari Byrne MD [address] [place] [address] PCP - General Family Medicine 08/19/23 Customer Security Clerk Relationship Specialty Start Date End Date Jmaari Byrne MD [address] [facility] [place] [address] PCP - General 11/12/21 Jamari Byrne MD [address] [facility], [place] [phone] PCP - [facility] 10/07/22 Customer Security Clerk Relationship Specialty Start Date End Date Jamari Byrne MD [address] [facility], [place] [phone] PCP - General 11/12/21 Jamari Byrne MD [address] [facility], [place] [address] [place] [address] PCP - [employer] PCP 10/07/22 Customer Security Clerk Relationship Specialty Start Date End Date Jamari Byrne MD [address] [facility], [place] [address] [place] [address] PCP - General 11/12/21 Jamari Byrne MD [address] [facility], [place] [address] [place] [address] PCP - [employer] ACO PCP 10/07/22 Customer Security Clerk Relationship Specialty Start Date End Date Jamari Byrne MD [address] [place] [phone] PCP - General Family Medicine 08/19/23 Customer Security Clerk Relationship Specialty Start Date End Date Jamari Byrne MD [address] [place] [phone] PCP - General Family Medicine 08/19/23 Customer Security Clerk Relationship Specialty Start Date End Date Jamari Byrne MD [address] [place] [phone] PCP - General Family Medicine 08/19/23 Customer Security Clerk Relationship Specialty Start Date End Date Jamari Byrne MD [address] [place] [phone] PCP - General Family Medicine 08/19/23 Customer Security Clerk Relationship Specialty Start Date End Date Jamari Byrne MD [address] [place] [address] PCP - General Family Medicine 08/19/23 Customer Security Clerk Relationship Specialty Start Date End Date Jamari Byrne MD [address] [facility], [place] [address] [place] [address] PCP - General 11/12/21 Jamari Byrne MD [address] [facility] [place] [address] [place] [address] PCP - [facility] PCP 10/07/22 Customer Security Clerk Relationship Specialty Start Date End Date Jamari Byrne MD [address] [place] [address] PCP - General Family Medicine 08/19/23 Customer Security Clerk Relationship Specialty Start Date End Date Jamari Byrne MD [address] [place] [address] PCP - General Family Medicine 08/19/23 Customer Security Clerk Relationship Specialty Start Date End Date Jamari Byrne MD [address] [place] [phone] PCP - General Family Medicine 08/19/23 Customer Security Clerk Relationship Specialty Start Date End Date Jamari Byrne MD [address] [place] [address] PCP - General Family Medicine 08/19/23 Customer Security Clerk Relationship Specialty Start Date End Date Jamari Byrne MD [address] [place] [address] PCP - General Family Medicine 08/19/23 Customer Security Clerk Relationship Specialty Start Date End Date Jamari Byrne MD [address] [place] [address] PCP - General Family Medicine 08/19/23 Customer Security Clerk Relationship Specialty Start Date End Date Jamari Byrne MD [address] [place] [address] PCP - General Family Medicine 08/19/23 Customer Security Clerk Relationship Specialty Start Date End Date Jamari Byrne MD [address] [place] [address] PCP - General Family Medicine 08/19/23 Customer Security Clerk Relationship Specialty Start Date End Date Jamari Byrne MD [address] [place] [address] PCP - General Family Medicine 08/19/23 Customer Security Clerk Relationship Specialty Start Date End Date Jamari Byrne MD [address] [place] [address] PCP - General Family Medicine 08/19/23 Customer Security Clerk Relationship Specialty Start Date End Date Jamari Byrne MD [address] [place] [address] PCP - General Family Medicine 08/19/23 Customer Security Clerk Relationship Specialty Start Date End Date Jamari Byrne MD [address] [place] [address] PCP - General Family Medicine 08/19/23 Customer Security Clerk Relationship Specialty Start Date End Date Jamari Byrne MD [address] [place] [phone] PCP - General Family Medicine 08/19/23 Customer Security Clerk Relationship Specialty Start Date End Date Jamari Byrne MD [address] [facility], [facility] [address] [place] [address] PCP - General 11/12/21 Jamari Byrne MD [address] [facility] [facility], [facility] [address] [id number] PCP - [facility] PCP 10/07/22 Customer Security Clerk Relationship Specialty Start Date End Date Jaamri Byrne MD [address] [place] [phone] PCP - General Family Medicine 08/19/23 Customer Security Clerk Relationship Specialty Start Date End Date Jamari Bryne MD [address] [place] [phone] PCP - General Family Medicine 08/19/23 Customer Security Clerk Relationship Specialty Start Date End Date Jamari Byrne MD [address] [place] [phone] PCP - General Family Medicine 08/19/23 Customer Security Clerk Relationship Specialty Start Date End Date Jamari Byrne MD [address] [place] [phone] PCP - General Family Medicine 08/19/23 Team [...] September 24, 2024 End: September 24, 2024 Customer Security Clerk Relationship Specialty Start Date End Date Jamari Byrne MD [address] [facility] [place] [address] PCP - General Family Medicine 08/19/23 Customer Security Clerk Relationship Specialty Start Date End Date Jamari Byrne MD [address] [place] [address] PCP - General Family Medicine 08/19/23 Customer Security Clerk Relationship Specialty Start Date End Date Jamari Byrne MD [address] [place] [address] PCP - General Family Medicine 08/19/23 Customer Security Clerk Relationship Specialty Start Date End Date Jamari Byrne MD [address] [place] [address] PCP - General Family Medicine 08/19/23 Customer Security Clerk Relationship Specialty Start Date End Date Jamari Byrne MD [address] [place] [address] PCP - General Family Medicine 08/19/23 Customer Security Clerk Relationship Specialty Start Date End Date Jamari Byrne MD [address] [place] [address] PCP - General Family Medicine 08/19/23 Team Status: Inactive Member Role Status Dates Dr. Jamari Byrne MD Primary Care Provider Active Start: October 16, 2024 End: October 16, 2024 Mariajose Nickerson CNM Attending Provider Active Start: October 16, 2024 End: October 16, 2024 Customer Security Clerk Relationship Specialty Start Date End Date Jamari Byrne MD [address] [place] [address] PCP - General Family Medicine 08/19/23 Customer Security Clerk Relationship Specialty Start Date End Date Jamari Byrne MD [address] [place] [address] PCP - General Family Medicine 08/19/23 Customer Security Clerk Relationship Specialty Start Date End Date Jamari Byrne MD [address] [place], [id number] PCP - General Family Medicine 08/19/23 Customer Security Clerk Relationship Specialty Start Date End Date Jamari Byrne MD [address] [place], [id number] PCP - General Family Medicine 08/19/23 Customer Security Clerk Relationship Specialty Start Date End Date Jamari Byrne MD [address] [place], [id number] PCP - General Family Medicine 08/19/23 Customer Security Clerk Relationship Specialty Start Date End Date Jamari Byrne MD [address] [place] [address] PCP - General Family Medicine 08/19/23 Customer Security Clerk Relationship Specialty Start Date End Date Jamari Byrne MD [address] [place] [address] PCP - General Family Medicine 08/19/23 Customer Security Clerk Relationship Specialty Start Date End Date Jamari Byrne MD [address] [place] [address] PCP - General Family Medicine 08/19/23 Customer Security Clerk Relationship Specialty Start Date End Date Jamari Byrne MD [address] [place] [address] PCP - General Family Medicine 08/19/23 Customer Security Clerk Relationship Specialty Start Date End Date Jamari Byrne MD [address] [place] [address] PCP - General Family Medicine 08/19/23 Customer Security Clerk Relationship Specialty Start Date End Date Jamari Byrne MD [address] [place] [address] PCP - General Family Medicine 08/19/23 Customer Security Clerk Relationship Specialty Start Date End Date Jamari Byrne MD [address] [place] [address] PCP - General Family Medicine 08/19/23 Customer Security Clerk Relationship Specialty Start Date End Date Jamari Byrne MD [address] [place] [address] PCP - General Family Medicine 08/19/23 Customer Security Clerk Relationship Specialty Start Date End Date Jamari Byrne MD [address] [place] [address] PCP - General Family Medicine 08/19/23 Customer Security Clerk Relationship Specialty Start Date End Date Jamari Byrne MD [address] [place] [address] PCP - General Family Medicine 08/19/23 Customer Security Clerk Relationship Specialty Start Date End Date Jamari Byrne MD [address] [address] PCP - General Family Medicine 08/19/23 Team Status: Inactive Member Role Status Dates Dr. Jamari Byrne MD Primary Care Provider Active Start: November 15, 2024 End: November 15, 2024 Dr. Whit Patel MD Attending Provider Ac tive Start: November 15, 2024 End: November 15, 2024 Dr. Whit Patel MD Referring Provider Ac tive Start: November 15, 2024 End: November 15, 2024 Customer Security Clerk Relationship Specialty Start Date End Date Jamari Byrne MD [address] [place] [phone] PCP - General Family Medicine 08/19/23 Customer Security Clerk Relationship Specialty Start Date End Date Jamari Byrne MD [address] [place] [address] PCP - General Family Medicine 08/19/23 Customer Security Clerk Relationship Specialty Start Date End Date Jamari Byrne MD [address] [place] [address] PCP - General Family Medicine 08/19/23 Customer Security Clerk Relationship Specialty Start Date End Date Jamari Byrne MD [address] [place] [address] PCP - General Family Medicine 08/19/23 Customer Security Clerk Relationship Specialty Start Date End Date Jamari Byrne MD [address] [place] [address] PCP - General Family Medicine 08/19/23 Customer Security Clerk Relationship Specialty Start Date End Date Jamari Byrne MD [address] [place] [address] PCP - General Family Medicine 08/19/23 Customer Security Clerk Relationship Specialty Start Date End Date Jamari Byrne MD [address] [place] [address] PCP - General Family Medicine 08/19/23 Customer Security Clerk Relationship Specialty Start Date End Date Jamari Byrne MD [address] [place] [address] PCP - General Family Medicine 08/19/23 Team Status: Active Member Role/Relationship Status Dates No Primary Care Physician Family Provider Active Dr. Jamari yBrne MD Primary Care Provider Active Team Status: [...] December 16, 2024 End: December 16, 2024 Customer Security Clerk Relationship Specialty Start Date End Date Jamari Byrne MD [address] [place] [address] PCP - General Family Medicine 08/19/23 Customer Security Clerk Relationship Specialty Start Date End Date Jamari Byrne MD [address] [place] [address] PCP - General Family Medicine 08/19/23 Team [...] January 20, 2025 End: January 21, 2025 Customer Security Clerk Relationship Specialty Start Date End Date Jamari Byrne MD [address] [place] [address] PCP - General Family Medicine 08/19/23 Team [...] January 23, 2025 End: January 23, 2025 Customer Security Clerk Relationship Specialty Start Date End Date Jamari Byrne MD [address] [facility] [place] [address] PCP - General 11/12/21 Jamari Byrne MD [address] [facility], [place] [phone] [facility] 08/07/24 Team Status: Inactive Member Role/Relationship [...] 26, 2025 End: January 26, 2025 Dr. Shelia Ortega DO Emergency Provider Active S tart: January 26, 2025 End: January 26, 2025 Customer Security Clerk Relationship Specialty Start Date End Date Jamari Byrne MD [address] [place] [address] PCP - General Family Medicine 08/19/23 Customer Security Clerk Relationship Specialty Start Date End Date Jamari Byrne MD [address] [place] [address] PCP - General Family Medicine 08/19/23 Customer Security Clerk Relationship Specialty Start Date End Date Jaamri Byrne MD [address] [facility], [place] [address] [place], [id number] PCP - General 11/12/21 Jamari Byrne MD [address] [facility] [place] [address] [place], [id number] - [facility] 08/07/24 Customer Security Clerk Relationship Specialty Start Date End Date Jamari Byrne MD [address] [place] [address] PCP - General Family Medicine 08/19/23 Customer Security Clerk Relationship Specialty Start Date End Date Jamari Byrne MD [address] [place] [address] PCP - General Family Medicine 08/19/23 Customer Security Clerk Relationship Specialty Start Date End Date Jamari Byrne MD [address] [facility], [place] [address] [place] [address] PCP - General Family Medicine 01/29/25 Customer Security Clerk Relationship Specialty Start Date End Date Jamari Byrne MD [address] [facility], [place] [address] [place] [address] PCP - General 11/12/21 Jamari Byrne MD [facility] [facility], [facility] [address] [place] [address] PCP - Junaid ADRIAN PCP 08/07/24 Source Comments (unrecognize d section and content) In the event this informatio n is protected by the Federal Confidentiality of Alcohol and Drug Abuse Patient Records regulations: The Federal rules restrict any use of the information to criminally investigate or prosecute any alcohol or drug abuse patient.[facility] the event this information is protected by the Federal Confidentiality of Alcohol and Drug Abuse Patient Records regulations: The Federal rules restrict any use of the information to criminally investigate or prosecute any alcohol or drug abuse patient.[facility] SouthIn the event this information is protected by the Federal Confidentiality of Alcohol and Drug Abuse Patient Records regulations: The Federal rules restrict any use of the information to criminally investigate or prosecute any alcohol or drug abuse patient.[facility]In the event this information is protected by the Federal Confidentiality of Alcohol and Drug Abuse Patient Records regulations: The Federal rules restrict any use of the information to criminally investigate or prosecute any alcohol or drug abuse patient.[facility] SouthIn the event this information is protected by the Federal Confidentiality of Alcohol and Drug Abuse Patient Records regulations: The Federal rules restrict any use of the information to criminally investigate or prosecute any alcohol or drug abuse patient.[facility]In the event this information is protected by the Federal Confidentiality of Alcohol and Drug Abuse Patient Records regulations: The Federal rules restrict any use of the information to criminally investigate or prosecute any alcohol or drug abuse patient.[facility] SouthIn the event this information is protected by the Federal Confidentiality of Alcohol and Drug Abuse Patient Records regulations: The Federal rules restrict any use of the information to criminally investigate or prosecute any alcohol or drug abuse patient.[facility] SouthIn the event this information is protected by the Federal Confidentiality of Alcohol and Drug Abuse Patient Records regulations: The Federal rules restrict any use of the information to criminally investigate or prosecute any alcohol or drug abuse patient.[facility] SouthIn the event this information is protected by the Federal Confidentiality of Alcohol and Drug Abuse Patient Records regulations: The Federal rules restrict any use of the information to criminally investigate or prosecute any alcohol or drug abuse patient.[facility] SouthIn the event this information is protected by the Federal Confidentiality of Alcohol and Drug Abuse Patient Records regulations: The Federal rules restrict any use of the information to criminally investigate or prosecute any alcohol or drug abuse patient.[facility] SouthIn the event this information is protected by the Federal Confidentiality of Alcohol and Drug Abuse Patient Records regulations: The Federal rules restrict any use of the information to criminally investigate or prosecute any alcohol or drug abuse patient.[facility] SouthIn the event this information is protected by the Federal Confidentiality of Alcohol and Drug Abuse Patient Records regulations: The Federal rules restrict any use of the information to criminally investigate or prosecute any alcohol or drug abuse patient.[facility] SouthIn the event this information is protected by the Federal Confidentiality of Alcohol and Drug Abuse Patient Records regulations: The Federal rules restrict any use of the information to criminally investigate or prosecute any alcohol or drug abuse patient.[facility] SouthIn the event this information is protected by the Federal Confidentiality of Alcohol and Drug Abuse Patient Records regulations: The Federal rules restrict any use of the information to criminally investigate or prosecute any alcohol or drug abuse patient.[facility] SouthIn the event this information is protected by the Federal Confidentiality of Alcohol and Drug Abuse Patient Records regulations: The Federal rules restrict any use of the information to criminally investigate or prosecute any alcohol or drug abuse patient.[facility] SouthIn the event this information is protected by the Federal Confidentiality of Alcohol and Drug Abuse Patient Records regulations: The Federal rules restrict any use of the information to criminally investigate or prosecute any alcohol or drug abuse patient.[facility] SouthIn the event this information is protected by the Federal Confidentiality of Alcohol and Drug Abuse Patient Records regulations: The Federal rules restrict any use of the information to criminally investigate or prosecute any alcohol or drug abuse patient.[facility] SouthIn the event this information is protected by the Federal Confidentiality of Alcohol and Drug Abuse Patient Records regulations: The Federal rules restrict any use of the information to criminally investigate or prosecute any alcohol or drug abuse patient.[facility] SouthIn the event this information is protected by the Federal Confidentiality of Alcohol and Drug Abuse Patient Records regulations: The Federal rules restrict any use of the information to criminally investigate or prosecute any alcohol or drug abuse patient.[facility] SouthIn the event this information is protected by the Federal Confidentiality of Alcohol and Drug Abuse Patient Records regulations: The Federal rules restrict any use of the information to criminally investigate or prosecute any alcohol or drug abuse patient.[facility]In the event this information is protected by the Federal Confidentiality of Alcohol and Drug Abuse Patient Records regulations: The Federal rules restrict any use of the information to criminally investigate or prosecute any alcohol or drug abuse patient.[facility]In the event this information is protected by the Federal Confidentiality of Alcohol and Drug Abuse Patient Records regulations: The Federal rules restrict any use of the information to criminally investigate or prosecute any alcohol or drug abuse patient.[facility] SouthIn the event this information is protected by the Federal Confidentiality of Alcohol and Drug Abuse Patient Records regulations: The Federal rules restrict any use of the information to criminally investigate or prosecute any alcohol or drug abuse patient.[facility] SouthIn the event this information is protected by the Federal Confidentiality of Alcohol and Drug Abuse Patient Records regulations: The Federal rules restrict any use of the information to criminally investigate or prosecute any alcohol or drug abuse patient.[facility] SouthIn the event this information is protected by the Federal Confidentiality of Alcohol and Drug Abuse Patient Records regulations: The Federal rules restrict any use of the information to criminally investigate or prosecute any alcohol or drug abuse patient.[facility] SouthIn the event this information is protected by the Federal Confidentiality of Alcohol and Drug Abuse Patient Records regulations: The Federal rules restrict any use of the information to criminally investigate or prosecute any alcohol or drug abuse patient.[facility] SouthIn the event this information is protected by the Federal Confidentiality of Alcohol and Drug Abuse Patient Records regulations: The Federal rules restrict any use of the information to criminally investigate or prosecute any alcohol or drug abuse patient.[facility]In the event this information is protected by the Federal Confidentiality of Alcohol and Drug Abuse Patient Records regulations: The Federal rules restrict any use of the information to criminally investigate or prosecute any alcohol or drug abuse patient.[facility]In the event this information is protected by the Federal Confidentiality of Alcohol and Drug Abuse Patient Records regulations: The Federal rules restrict any use of the information to criminally investigate or prosecute any alcohol or drug abuse patient.[facility] SouthIn the event this information is protected by the Federal Confidentiality of Alcohol and Drug Abuse Patient Records regulations: The Federal rules restrict any use of the information to criminally investigate or prosecute any alcohol or drug abuse patient.[facility] SouthIn the event this information is protected by the Federal Confidentiality of Alcohol and Drug Abuse Patient Records regulations: The Federal rules restrict any use of the information to criminally investigate or prosecute any alcohol or drug abuse patient.[facility]In the event this information is protected by the Federal Confidentiality of Alcohol and Drug Abuse Patient Records regulations: The Federal rules restrict any use of the information to criminally investigate or prosecute any alcohol or drug abuse patient.[facility]In the event this information is protected by the Federal Confidentiality of Alcohol and Drug Abuse Patient Records regulations: The Federal rules restrict any use of the information to criminally investigate or prosecute any alcohol or drug abuse patient.[facility]In the event this information is protected by the Federal Confidentiality of Alcohol and Drug Abuse Patient Records regulations: The Federal rules restrict any use of the information to criminally investigate or prosecute any alcohol or drug abuse patient.[facility]In the event this information is protected by the Federal Confidentiality of Alcohol and Drug Abuse Patient Records regulations: The Federal rules restrict any use of the information to criminally investigate or prosecute any alcohol or drug abuse patient.[facility] SouthIn the event this information is protected by the Federal Confidentiality of Alcohol and Drug Abuse Patient Records regulations: The Federal rules restrict any use of the information to criminally investigate or prosecute any alcohol or drug abuse patient.[facility] SouthIn the event this information is protected by the Federal Confidentiality of Alcohol and Drug Abuse Patient Records regulations: The Federal rules restrict any use of the information to criminally investigate or prosecute any alcohol or drug abuse patient.[facility]In the event this information is protected by the Federal Confidentiality of Alcohol and Drug Abuse Patient Records regulations: The Federal rules restrict any use of the information to criminally investigate or prosecute any alcohol or drug abuse patient.[facility] SouthIn the event this information is protected by the Federal Confidentiality of Alcohol and Drug Abuse Patient Records regulations: The Federal rules restrict any use of the information to criminally investigate or prosecute any alcohol or drug abuse patient.[facility]In the event this information is protected by the Federal Confidentiality of Alcohol and Drug Abuse Patient Records regulations: The Federal rules restrict any use of the information to criminally investigate or prosecute any alcohol or drug abuse patient.[facility] SouthIn the event this information is protected by the Federal Confidentiality of Alcohol and Drug Abuse Patient Records regulations: The Federal rules restrict any use of the information to criminally investigate or prosecute any alcohol or drug abuse patient.[facility] SouthIn the event this information is protected by the Federal Confidentiality of Alcohol and Drug Abuse Patient Records regulations: The Federal rules restrict any use of the information to criminally investigate or prosecute any alcohol or drug abuse patient.[facility] SouthIn the event this information is protected by the Federal Confidentiality of Alcohol and Drug Abuse Patient Records regulations: The Federal rules restrict any use of the information to criminally investigate or prosecute any alcohol or drug abuse patient.[facility]In the event this information is protected by the Federal Confidentiality of Alcohol and Drug Abuse Patient Records regulations: The Federal rules restrict any use of the information to criminally investigate or prosecute any alcohol or drug abuse patient.[facility] SouthIn the event this information is protected by the Federal Confidentiality of Alcohol and Drug Abuse Patient Records regulations: The Federal rules restrict any use of the information to criminally investigate or prosecute any alcohol or drug abuse patient.[facility] SouthIn the event this information is protected by the Federal Confidentiality of Alcohol and Drug Abuse Patient Records regulations: The Federal rules restrict any use of the information to criminally investigate or prosecute any alcohol or drug abuse patient.[facility] SouthIn the event this information is protected by the Federal Confidentiality of Alcohol and Drug Abuse Patient Records regulations: The Federal rules restrict any use of the information to criminally investigate or prosecute any alcohol or drug abuse patient.[facility] SouthIn the event this information is protected by the Federal Confidentiality of Alcohol and Drug Abuse Patient Records regulations: The Federal rules restrict any use of the information to criminally investigate or prosecute any alcohol or drug abuse patient.[facility] SouthIn the event this information is protected by the Federal Confidentiality of Alcohol and Drug Abuse Patient Records regulations: The Federal rules restrict any use of the information to criminally investigate or prosecute any alcohol or drug abuse patient.[facility]In the event this information is protected by the Federal Confidentiality of Alcohol and Drug Abuse Patient Records regulations: The Federal rules restrict any use of the information to criminally investigate or prosecute any alcohol or drug abuse patient.[facility]In the event this information is protected by the Federal Confidentiality of Alcohol and Drug Abuse Patient Records regulations: The Federal rules restrict any use of the information to criminally investigate or prosecute any alcohol or drug abuse patient.[facility] SouthIn the event this information is protected by the Federal Confidentiality of Alcohol and Drug Abuse Patient Records regulations: The Federal rules restrict any use of the information to criminally investigate or prosecute any alcohol or drug abuse patient.[facility]In the event this information is protected by the Federal Confidentiality of Alcohol and Drug Abuse Patient Records regulations: The Federal rules restrict any use of the information to criminally investigate or prosecute any alcohol or drug abuse patient.[facility] SouthIn the event this information is protected by the Federal Confidentiality of Alcohol and Drug Abuse Patient Records regulations: The Federal rules restrict any use of the information to criminally investigate or prosecute any alcohol or drug abuse patient.[facility] SouthIn the event this information is protected by the Federal Confidentiality of Alcohol and Drug Abuse Patient Records regulations: The Federal rules restrict any use of the information to criminally investigate or prosecute any alcohol or drug abuse patient.[facility] SouthIn the event this information is protected by the Federal Confidentiality of Alcohol and Drug Abuse Patient Records regulations: The Federal rules restrict any use of the information to criminally investigate or prosecute any alcohol or drug abuse patient.[facility] SouthIn the event this information is protected by the Federal Confidentiality of Alcohol and Drug Abuse Patient Records regulations: The Federal rules restrict any use of the information to criminally investigate or prosecute any alcohol or drug abuse patient.[facility]In the event this information is protected by the Federal Confidentiality of Alcohol and Drug Abuse Patient Records regulations: The Federal rules restrict any use of the information to criminally investigate or prosecute any alcohol or drug abuse patient.[facility] SouthIn the event this information is protected by the Federal Confidentiality of Alcohol and Drug Abuse Patient Records regulations: The Federal rules restrict any use of the information to criminally investigate or prosecute any alcohol or drug abuse patient.[facility] SouthIn the event this information is protected by the Federal Confidentiality of Alcohol and Drug Abuse Patient Records regulations: The Federal rules restrict any use of the information to criminally investigate or prosecute any alcohol or drug abuse patient.[facility] SouthIn the event this information is protected by the Federal Confidentiality of Alcohol and Drug Abuse Patient Records regulations: The Federal rules restrict any use of the information to criminally investigate or prosecute any alcohol or drug abuse patient.[facility] SouthIn the event this information is protected by the Federal Confidentiality of Alcohol and Drug Abuse Patient Records regulations: The Federal rules restrict any use of the information to criminally investigate or prosecute any alcohol or drug abuse patient.[facility] SouthIn the event this information is protected by the Federal Confidentiality of Alcohol and Drug Abuse Patient Records regulations: The Federal rules restrict any use of the information to criminally investigate or prosecute any alcohol or drug abuse patient.[facility] SouthIn the event this information is protected by the Federal Confidentiality of Alcohol and Drug Abuse Patient Records regulations: The Federal rules restrict any use of the information to criminally investigate or prosecute any alcohol or drug abuse patient.[facility] SouthIn the event this information is protected by the Federal Confidentiality of Alcohol and Drug Abuse Patient Records regulations: The Federal rules restrict any use of the information to criminally investigate or prosecute any alcohol or drug abuse patient.[facility] SouthIn the event this information is protected by the Federal Confidentiality of Alcohol and Drug Abuse Patient Records regulations: The Federal rules restrict any use of the information to criminally investigate or prosecute any alcohol or drug abuse patient.[facility] SouthIn the event this information is protected by the Federal Confidentiality of Alcohol and Drug Abuse Patient Records regulations: The Federal rules restrict any use of the information to criminally investigate or prosecute any alcohol or drug abuse patient.[facility] SouthIn the event this information is protected by the Federal Confidentiality of Alcohol and Drug Abuse Patient Records regulations: The Federal rules restrict any use of the information to criminally investigate or prosecute any alcohol or drug abuse patient.[facility] SouthIn the event this information is protected by the Federal Confidentiality of Alcohol and Drug Abuse Patient Records regulations: The Federal rules restrict any use of the information to criminally investigate or prosecute any alcohol or drug abuse patient.[facility] SouthIn the event this information is protected by the Federal Confidentiality of Alcohol and Drug Abuse Patient Records regulations: The Federal rules restrict any use of the information to criminally investigate or prosecute any alcohol or drug abuse patient.[facility] SouthIn the event this information is protected by the Federal Confidentiality of Alcohol and Drug Abuse Patient Records regulations: The Federal rules restrict any use of the information to criminally investigate or prosecute any alcohol or drug abuse patient.[facility] SouthIn the event this information is protected by the Federal Confidentiality of Alcohol and Drug Abuse Patient Records regulations: The Federal rules restrict any use of the information to criminally investigate or prosecute any alcohol or drug abuse patient.[facility]In the event this information is protected by the Federal Confidentiality of Alcohol and Drug Abuse Patient Records regulations: The Federal rules restrict any use of the information to criminally investigate or prosecute any alcohol or drug abuse patient.[facility]In the event this information is protected by the Federal Confidentiality of Alcohol and Drug Abuse Patient Records regulations: The Federal rules restrict any use of the information to criminally investigate or prosecute any alcohol or drug abuse patient.[facility]In the event this information is protected by the Federal Confidentiality of Alcohol and Drug Abuse Patient Records regulations: The Federal rules restrict any use of the information to criminally investigate or prosecute any alcohol or drug abuse patient.[facility]In the event this information is protected by the Federal Confidentiality of Alcohol and Drug Abuse Patient Records regulations: The Federal rules restrict any use of the information to criminally investigate or prosecute any alcohol or drug abuse patient.[facility] SouthIn the event this information is protected by the Federal Confidentiality of Alcohol and Drug Abuse Patient Records regulations: The Federal rules restrict any use of the information to criminally investigate or prosecute any alcohol or drug abuse patient.[facility]In the event this information is protected by the Federal Confidentiality of Alcohol and Drug Abuse Patient Records regulations: The Federal rules restrict any use of the information to criminally investigate or prosecute any alcohol or drug abuse patient.[facility]In the event this information is protected by the Federal Confidentiality of Alcohol and Drug Abuse Patient Records regulations: The Federal rules restrict any use of the information to criminally investigate or prosecute any alcohol or drug abuse patient.[facility]In the event this information is protected by the Federal Confidentiality of Alcohol and Drug Abuse Patient Records regulations: The Federal rules restrict any use of the information to criminally investigate or prosecute any alcohol or drug abuse patient.[facility]In the event this information is protected by the Federal Confidentiality of Alcohol and Drug Abuse Patient Records regulations: The Federal rules restrict any use of the information to criminally investigate or prosecute any alcohol or drug abuse patient.[facility]In the event this information is protected by the Federal Confidentiality of Alcohol and Drug Abuse Patient Records regulations: The Federal rules restrict any use of the information to criminally investigate or prosecute any alcohol or drug abuse patient.[facility]In the event this information is protected by the Federal Confidentiality of Alcohol and Drug Abuse Patient Records regulations: The Federal rules restrict any use of the information to criminally investigate or prosecute any alcohol or drug abuse patient.[facility]In the event this information is protected by the Federal Confidentiality of Alcohol and Drug Abuse Patient Records regulations: The Federal rules restrict any use of the information to criminally investigate or prosecute any alcohol or drug abuse patient.[facility]In the event this information is protected by the Federal Confidentiality of Alcohol and Drug Abuse Patient Records regulations: The Federal rules restrict any use of the information to criminally investigate or prosecute any alcohol or drug abuse patient.[facility]In the event this information is protected by the Federal Confidentiality of Alcohol and Drug Abuse Patient Records regulations: The Federal rules restrict any use of the information to criminally investigate or prosecute any alcohol or drug abuse patient.[facility]In the event this information is protected by the Federal Confidentiality of Alcohol and Drug Abuse Patient Records regulations: The Federal rules restrict any use of the information to criminally investigate or prosecute any alcohol or drug abuse patient.[facility]In the event this information is protected by the Federal Confidentiality of Alcohol and Drug Abuse Patient Records regulations: The Federal rules restrict any use of the information to criminally investigate or prosecute any alcohol or drug abuse patient.[facility]In the event this information is protected by the Federal Confidentiality of Alcohol and Drug Abuse Patient Records regulations: The Federal rules restrict any use of the information to criminally investigate or prosecute any alcohol or drug abuse patient.[facility]In the event this information is protected by the Federal Confidentiality of Alcohol and Drug Abuse Patient Records regulations: The Federal rules restrict any use of the information to criminally investigate or prosecute any alcohol or drug abuse patient.[facility]In the event this information is protected by the Federal Confidentiality of Alcohol and Drug Abuse Patient Records regulations: The Federal rules restrict any use of the information to criminally investigate or prosecute any alcohol or drug abuse patient.[facility]In the event this information is protected by the Federal Confidentiality of Alcohol and Drug Abuse Patient Records regulations: The Federal rules restrict any use of the information to criminally investigate or prosecute any alcohol or drug abuse patient.[facility]In the event this information is protected by the Federal Confidentiality of Alcohol and Drug Abuse Patient Records regulations: The Federal rules restrict any use of the information to criminally investigate or prosecute any alcohol or drug abuse patient.[facility]In the event this information is protected by the Federal Confidentiality of Alcohol and Drug Abuse Patient Records regulations: The Federal rules restrict any use of the information to criminally investigate or prosecute any alcohol or drug abuse patient.[facility]In the event this information is protected by the Federal Confidentiality of Alcohol and Drug Abuse Patient Records regulations: The Federal rules restrict any use of the information to criminally investigate or prosecute any alcohol or drug abuse patient.[facility] SouthIn the event this information is protected by the Federal Confidentiality of Alcohol and Drug Abuse Patient Records regulations: The Federal rules restrict any use of the information to criminally investigate or prosecute any alcohol or drug abuse patient.[facility] SouthIn the event this information is protected by the Federal Confidentiality of Alcohol and Drug Abuse Patient Records regulations: The Federal rules restrict any use of the information to criminally investigate or prosecute any alcohol or drug abuse patient.[facility]In the event this information is protected by the Federal Confidentiality of Alcohol and Drug Abuse Patient Records regulations: The Federal rules restrict any use of the information to criminally investigate or prosecute any alcohol or drug abuse patient.[facility]In the event this information is protected by the Federal Confidentiality of Alcohol and Drug Abuse Patient Records regulations: The Federal rules restrict any use of the information to criminally investigate or prosecute any alcohol or drug abuse patient.[facility]In the event this information is protected by the Federal Confidentiality of Alcohol and Drug Abuse Patient Records regulations: The Federal rules restrict any use of the information to criminally investigate or prosecute any alcohol or drug abuse patient.[facility]In the event this information is protected by the Federal Confidentiality of Alcohol and Drug Abuse Patient Records regulations: The Federal rules restrict any use of the information to criminally investigate or prosecute any alcohol or drug abuse patient.[facility]In the event this information is protected by the Federal Confidentiality of Alcohol and Drug Abuse Patient Records regulations: The Federal rules restrict any use of the information to criminally investigate or prosecute any alcohol or drug abuse patient.[facility]In the event this information is protected by the Federal Confidentiality of Alcohol and Drug Abuse Patient Records regulations: The Federal rules restrict any use of the information to criminally investigate or prosecute any alcohol or drug abuse patient.[facility]In the event this information is protected by the Federal Confidentiality of Alcohol and Drug Abuse Patient Records regulations: The Federal rules restrict any use of the information to criminally investigate or prosecute any alcohol or drug abuse patient.[facility]In the event this information is protected by the Federal Confidentiality of Alcohol and Drug Abuse Patient Records regulations: The Federal rules restrict any use of the information to criminally investigate or prosecute any alcohol or drug abuse patient.[facility]In the event this information is protected by the Federal Confidentiality of Alcohol and Drug Abuse Patient Records regulations: The Federal rules restrict any use of the information to criminally investigate or prosecute any alcohol or drug abuse patient.[facility]In the event this information is protected by the Federal Confidentiality of Alcohol and Drug Abuse Patient Records regulations: The Federal rules restrict any use of the information to criminally investigate or prosecute any alcohol or drug abuse patient.[facility]In the event this information is protected by the Federal Confidentiality of Alcohol and Drug Abuse Patient Records regulations: The Federal rules restrict any use of the information to criminally investigate or prosecute any alcohol or drug abuse patient.[facility]In the event this information is protected by the Federal Confidentiality of Alcohol and Drug Abuse Patient Records regulations: The Federal rules restrict any use of the information to criminally investigate or prosecute any alcohol or drug abuse patient.[facility]In the event this information is protected by the Federal Confidentiality of Alcohol and Drug Abuse Patient Records regulations: The Federal rules restrict any use of the information to criminally investigate or prosecute any alcohol or drug abuse patient.[facility]In the event this information is protected by the Federal Confidentiality of Alcohol and Drug Abuse Patient Records regulations: The Federal rules restrict any use of the information to criminally investigate or prosecute any alcohol or drug abuse patient.[facility]In the event this information is protected by the Federal Confidentiality of Alcohol and Drug Abuse Patient Records regulations: The Federal rules restrict any use of the information to criminally investigate or prosecute any alcohol or drug abuse patient.[facility]In the event this information is protected by the Federal Confidentiality of Alcohol and Drug Abuse Patient Records regulations: The Federal rules restrict any use of the information to criminally investigate or prosecute any alcohol or drug abuse patient.[facility]In the event this information is protected by the Federal Confidentiality of Alcohol and Drug Abuse Patient Records regulations: The Federal rules restrict any use of the information to criminally investigate or prosecute any alcohol or drug abuse patient.[facility]In the event this information is protected by the Federal Confidentiality of Alcohol and Drug Abuse Patient Records regulations: The Federal rules restrict any use of the information to criminally investigate or prosecute any alcohol or drug abuse patient.[facility]In the event this information is protected by the Federal Confidentiality of Alcohol and Drug Abuse Patient Records regulations: The Federal rules restrict any use of the information to criminally investigate or prosecute any alcohol or drug abuse patient.[facility]In the event this information is protected by the Federal Confidentiality of Alcohol and Drug Abuse Patient Records regulations: The Federal rules restrict any use of the information to criminally investigate or prosecute any alcohol or drug abuse patient.[facility]In the event this information is protected by the Federal Confidentiality of Alcohol and Drug Abuse Patient Records regulations: The Federal rules restrict any use of the information to criminally investigate or prosecute any alcohol or drug abuse patient.[facility]In the event this information is protected by the Federal Confidentiality of Alcohol and Drug Abuse Patient Records regulations: The Federal rules restrict any use of the information to criminally investigate or prosecute any alcohol or drug abuse patient.[facility]In the event this information is protected by the Federal Confidentiality of Alcohol and Drug Abuse Patient Records regulations: The Federal rules restrict any use of the information to criminally investigate or prosecute any alcohol or drug abuse patient.[facility] SouthIn the event this information is protected by the Federal Confidentiality of Alcohol and Drug Abuse Patient Records regulations: The Federal rules restrict any use of the information to criminally investigate or prosecute any alcohol or drug abuse patient.[facility] SouthIn the event this information is protected by the Federal Confidentiality of Alcohol and Drug Abuse Patient Records regulations: The Federal rules restrict any use of the information to criminally investigate or prosecute any alcohol or drug abuse patient.[facility] Scheduled Active and Recently Administ ered Medications [...] 1454 (New Bag - Prov ider: Rekha Ruby RN)1612 (Stopped - Provider: Rekha Ruby RN) Goals [...] BE BASED ON THE PRIMARY CLINICAL RECORDS. [facility]. provides no warranty or guarantee of the accuracy or completeness of information in this document.
[2025-05-03 20:35] VITALS: BP 166/112; PULSE 129; RESP 18; TEMP 36.7; O2SAT 95
[2025-05-03 20:49] LABS: Magnesium 2.2 mg/dL (1.5-2.2)
[2025-05-03 20:51] VITALS: BMI 30.9
[2025-05-03] MEDS: 0.9% Normal Saline (1000mL) 1,000 ML 100 ML IV (21:37)
[2025-05-04] VITALS (17 sets, daily range): BP systolic 130–167; BP diastolic 93–114; PULSE 98–127; RESP 14–18; TEMP 36.4–37.1; O2SAT 94–100; BMI 32.9
--- NOTE | 2025-05-04 01:24 | PCM.HOSP.N ---
Hospitalist Note Nrsg notes red-tinged stools w/pt's bowel incontinence. Pt's spouse does state "it's time for her period." Perineal exam performed after consent from pt with explanation of what I was examining for. I cleansed area; blood noted in vaginal vault with digital exam, before I proceeded with the digital rectal exam I observed blood leaking directly from her rectum. No external hemorrhoids noted, no internal hemorrhoids noted either. Heparin gtt stopped. Discussed findings with Dr. George. GI consult to be placed.
[2025-05-04 02:21] LABS: Hematocrit 33.8 % (37-47); Hemoglobin 11.5 g/dL (12.0-15.0); Immature Granulocytes Count 0.010 X10^3/uL (0.0-0.0); Mean Corp Hgb Conc 34.0 g/dL (32-36); Mean Corpuscular Volume 85.1 fL (81-99); Mean Platelet Vol. 9.1 fl (6.2-12.0); NRBC Flagged by Analyzer 0 % (0-5); Platelet Count 365 K/mm3 (150-450); RBC Distribution Width CV 14.3 % (11.6-14.6); RBC Distribution Width SD 41.1 fl (35.1-43.9); Red Blood Count 3.97 M/mm3 (4.2-5.4); White Blood Count 7.5 K/mm3 (4.4-11.0)
[2025-05-04 02:30] LABS: Partial Thromboplast Time 28.5 Seconds (24.1-36.2)
[2025-05-04 02:54] LABS: AST(SGOT) 41 U/L (<=31); Alanine Aminotransfer ALT/SGPT 164 U/L (<=34); Albumin, Serum 3.6 g/dL (3.5-5.0); Alkaline Phosphatase 71 U/L (35-104); Anion Gap 14 (5-15); BUN 9 mg/dL (4-19); BUN/Creat Ratio 31.2 RATIO (10-20); Calcium,Total 8.7 mg/dL (7.6-11.0); Carbon Dioxide 22.4 mmol/L (21.0-32.0); Chloride 103 mmol/L (98-108); Globulin 2.9 g/dL (2.2-4.2); Glucose 204 mg/dL (70-99); Potassium 4.0 mmol/L (3.3-5.1)
--- NOTE | 2025-05-04 06:01 | PN.HOSP_ITS ---
Hospitalist Note Agree with stopping
--- NOTE | 2025-05-04 06:01 | PCM.HOSP.N ---
Hospitalist Note Agree with stopping
[2025-05-04] MEDS: 0.9% Normal Saline (1000mL) 1,000 ML 100 ML IV (06:56)
--- NOTE | 2025-05-04 07:41 | PN.HOSP_ITS ---
Reason for Visit Chief Complaint: Dyspnea, tachycardia. Subjective Subjective Patient is a 30-year-old lady with multiple comorbidities resident at an extended care facility brought in with progressive generalized weakness and shortness of breath. Imaging studies obtained on admission demonstrated Few small segmental-subsegmental pulmonary arterial emboli. Small subpleural airspace opacity in the posterior right lung base may represent atelectasis versus a small pulmonary infarct. Patient was started on heparin and apparently developed Objective Data Objective Data Vital Signs: Vital Signs Temp Pulse Resp BP Pulse Ox O2 Del Method 98.1 F 100 18 154/101 H 98 Room Air 05/04/25 06:27 05/04/25 06:27 05/04/25 06:27 05/04/25 06:27 05/04/25 06:27 05/04/25 06:27 Oxygen Delivery Method Room Air Weight: 76.7 kg Body Mass Index (BMI) 30.9 Intake & Output: Intake and Output for Last 24 Hours 05/02/25 05/03/25 05/04/25 23:59 23:59 23:59 Intake Total 1000 / 1000 969.61 / 969.61 Output Total 1200 / 1200 500 / 500 Balance -200 / -200 469.61 / 469.61 Lab / Micro Data 05/04/25 02:10 05/04/25 02:10 Labs: Laboratory Results - last 24 hr 05/03/25 17:14: WBC 8.4, RBC 4.51, Hgb 12.8, Hct 38.9, MCV 86.3, MCH 28.4, MCHC 32.9, RDW Std Deviation 42.1, RDW Coeff of Linda 14.6, Plt Count 326, MPV 11.2, Immature Gran % (Auto) 0.400, Neut % (Auto) 70.7 H, Lymph % (Auto) 19.0, [place] % (Auto) 7.9, Eos % (Auto) 1.5, Baso % (Auto) 0.5, Absolute Neuts (auto) 6.0, Absolute Lymphs (auto) 1.60, Nucleated RBC % 0, PT 13.4, INR 1.0, APTT 24.1, Sodium 139, Potassium 4.3, Chloride 99, Carbon Dioxide 25.2, Anion Gap 15, BUN 19, Creatinine 0.36 L, Estim Creat Clear Calc 209.15, Est GFR (MDRD) Non-Af 140, BUN/Creatinine Ratio 51.8 H, Glucose 238 H, Lactic Acid 1.2, Calcium 9.8, Phosphorus 4.4, Magnesium 2.2, Total Bilirubin 0.68, AST 60 H, ALT 206 H, Alkaline Phosphatase 81, Total Protein 7.6, Albumin 4.1, Globulin 3.6, Albumin/Globulin Ratio 1.1 05/03/25 17:45: Urine Color Yellow, Urine Clarity Clear, Urine pH 6.0, Ur Specific [place] 1.025, Urine Protein 15 H, Urine Glucose (UA) 1000 H, Urine Ketones 15 H, Urine Occult Blood Negative, Urine Nitrite Negative, Urine Bilirubin Negative, Urine Urobilinogen 1 H, Ur Leukocyte Esterase Negative, Urine RBC 0-5 SEEN, Urine WBC 0-5 SEEN, Ur Squamous Epith Cells 0-5 SEEN, Urine Bacteria 1+, Urine Mucus 0 SEEN 05/03/25 21:36: POC Glucose 215 H 05/04/25 02:10: WBC 7.5, RBC 3.97 L, Hgb 11.5 L, Hct 33.8 L, MCV 85.1, MCH 29.0, MCHC 34.0, RDW Std Deviation 41.1, RDW Coeff of Linda 14.3, Plt Count 365, MPV 9.1, Immature Gran % (Auto) 0.100, Neut % (Auto) 70.0, Lymph % (Auto) 21.4, [place] % (Auto) 7.1, Eos % (Auto) 0.7, Baso % (Auto) 0.7, Absolute Neuts (auto) 5.2, Absolute Lymphs (auto) 1.60, Nucleated RBC % 0, APTT 28.5, Sodium 139, Potassium 4.0, Chloride 103, Carbon Dioxide 22.4, Anion Gap 14, BUN 9, Creatinine 0.30 L, Estim Creat Clear Calc 262.93 H, Est GFR (MDRD) Non-Af 146, BUN/Creatinine Ratio 31.2 H, Glucose 204 H, Calcium 8.7, Total Bilirubin 0.58, AST 41 H, ALT 164 H, Alkaline Phosphatase 71, Total Protein 6.5, Albumin 3.6, Globulin 2.9, Albumin/Globulin Ratio 1.2 Radiography Diagnostic Testing: Radiology Impression Chest CTA 05/03/25 17:21 IMPRESSION: Few small segmental-subsegmental pulmonary arterial emboli. Small subpleural airspace opacity in the posterior right lung base may represent atelectasis versus a small pulmonary infarct. Reading Location: [facility] Physical Exam Narrative GENERAL: cooperative HEENT: Atraumatic; normocephalic EYES; Anicteric, Normal Conjunctiva NECK; supple, normal thyroid, RESPIRATORY: Diminished to auscultation CARDIOVASCULAR: Regular S1 S2, GI: soft, normoactive bowel sounds, : No Renal angle tenderness; EXTREMITIES: No edema, no clubbing, MUSCULOSKELETAL: no muscle wasting NEURO: Awake; no lateralizing signs. SKIN: No Rash PSYCH; Flat affect Assessment & Plan Assessment/Plan (1) Bilateral pulmonary embolism: PLAN: Plan Patient is a 30-year-old lady with multiple comorbidities resident at an extended care facility brought in with progressive generalized weakness and shortness of breath. Imaging studies obtained on admission demonstrated Few small segmental-subsegmental pulmonary arterial emboli. Small subpleural airspace opacity in the posterior right lung base may represent atelectasis versus a small pulmonary infarct. 1. Acute pulmonary embolism with suspected pulmonary infarct – Patient admitted to a monitored bed started on heparin drip 2D echo ordered ordered bilateral lower venous duplex to assess for possible IVC filter placement in case patient is not able to tolerate systemic anticoagulation 2. Suspected lower GI bleed – Patient seen in consultation by GI plan is for patient to undergo endoscopic evaluation given the fact that patient may need to be on long-term systemic anticoagulation. 3. Diabetes mellitus type II -patient's oral hypoglycemics held. Placed on long acting insulin, Accu-Cheks a.c. and at bedtime and covered with sliding scale insulin 4. Mild intermittent asthma – Aerosol treatments as needed 5. Depression – Patient is on fluoxetine continue 6. Class I obesity with BMI of 31 – Complicating care weight loss advised 7. Hypertension – Blood pressure control not optimal with blood pressure 154/101 this a.m. adjusted home medications 8. Physical deconditioning – Requested for PT OT eval and social media marketing analyst to assist with discharge planning Time spent in the patient's overall evaluation,decision-making process, review of diagnostic data, adjustment of management, discussion with other providers, nursing nursing and ancillary staff involved in patient's care documentation, 52 Minutes Charges/Coding Visit Charges Inpatient E&M: 37445 Subs Hosp L3
--- NOTE | 2025-05-04 08:19 | CON.PCM.GI_ITS ---
HPI Consult Data Date of Consult: 05/04/25 HPI Narrative Reason for Consultation: GI bleed HPI Narrative: AUTUMN Anton a 30-year-old female with a history of diabetes and bipolar disorder who presents from a assisted facility with increasing shortness of breath (SOB) since Friday (approximately 4 days). The patient reports she cannot speak in full sentences due to SOB. She denies fever or chills. She reports receiving Lovenox injections at the SNF due to generalized weakness and immobility. She and her significant other state the SOB has worsened over the last few days. The patient has been at the SNF for the past week following a recent hospitalization for DKA, where she was then transferred to a Transitional Care Unit . She is currently unable to stand or ambulate due to persistent weakness, although she can move her legs. She denies fever, chills, and cough. The patient was referred for evaluation of a decrease in hemoglobin and lower gastrointestinal bleeding. * Laboratory Data: * WBC: 7.5 (Normal) * Hemoglobin (Hgb): 11.5 (down from 13.0) * Platelet count: 365 (Elevated) * Creatinine: 0.3 * AST: 41 * ALT: 164 * Bilirubin: 0.58 * Imaging/Studies: * CTA Chest: Demonstrated bilateral pulmonary emboli (PE) with small pulmonary infarcts. [facility] Medical History Anxiety and depression Former smoker Wears dentures Wears glasses Bipolar disorder Gastric reflux Insulin dependent diabetes mellitus Asthma Osteoarthritis Diabetes Home Medications Medication Instructions Recorded Last Taken Type fluoxetine 20 mg capsule 20 mg PO DAILY anxiety 11/1512/16/24 History glipizide 5 mg tablet 5 mg PO BID dm 04/20/25 Unkn own History metformin 500 mg tablet 500 mg PO BID dm 04/20/25 Un known History insulin glargine-yfgn 100 unit/mL 10 unit (0.1 mL) sub cut BID #0 mL 04/26/25 Unknown Rx (3 mL) subcutaneous pen insulin lispro 100 unit/mL 5 unit (0.05 mL) subcut TID AC #0 mL 04/26/25 Unknown Rx subcutaneous pen (Humalog KwikPen (U-100) Insulin) melatonin 5 mg capsule 5 mg PO QHS 05/03/25 Unknown History metoprolol tartrate 25 mg tablet 25 mg PO BID 05/04/25 Unknown History Allergy/AdvReac Type Severity Reaction Status Date / Time aripiprazole (From Abilify) AdvReac Other Verified 05/03/25 17:05 metoclopramide (From Reglan) AdvReac Other Verified 05/03/25 17:05 ondansetron (From Zofran) AdvReac Vomiting Verified 05/03/25 17:05 quetiapine (From Seroquel) AdvReac Other Verified 05/03/25 17:05 sertraline (From Zoloft) AdvReac Other Verified 05/03/25 17:05 Family History Father Heart disease Hyperlipemia Mother COPD (chronic obstructive pulmonary disease) Surgical History History of dilation and curettage History of oral surgery History of cholecystectomy Social History household members: none housing: [facility] number of children: 2 service: No current occupational status: disabled Smoking Status: Former smoker alcohol intake: never substance use type: does not use ROS Constitutional Constitutional: Denies fatigue, fever(s), poor appetite, weight gain or weight loss Gastrointestinal Gastrointestinal: Denies belching, bloating, change in bowel habits, change in stool character, chewing difficulty, coffee ground emesis, constipation, cramping, diarrhea, dyspepsia, dysphagia, early satiety, excessive flatus, fecal incontinence, heartburn, hematemesis, hematochezia, hemorrhoids, loose stools, melena, nausea, odynophagia, rectal bleeding, tenesmus, vomiting or weight changes Physical Exam Const alert, oriented x3, no apparent distress and healthy appearing General Appearance: cooperative GI normal to inspection, nondistended, normoactive bowel sounds, soft to palpation, non-tender and non-distended Percussion: normal to percussion Rectal Exam: deferred Lab / Micro Data 05/04/25 02:10 05/04/25 02:10 Labs: Laboratory Results - last 24 hr 05/03/25 17:14: WBC 8.4, RBC 4.51, Hgb 12.8, Hct 38.9, MCV 86.3, MCH 28.4, MCHC 32.9, RDW Std Deviation 42.1, RDW Coeff of Linda 14.6, Plt Count 326, MPV 11.2, Immature Gran % (Auto) 0.400, Neut % (Auto) 70.7 H, Lymph % (Auto) 19.0, [place] % (Auto) 7.9, Eos % (Auto) 1.5, Baso % (Auto) 0.5, Absolute Neuts (auto) 6.0, Absolute Lymphs (auto) 1.60, Nucleated RBC % 0, PT 13.4, INR 1.0, APTT 24.1, Sodium 139, Potassium 4.3, Chloride 99, Carbon Dioxide 25.2, Anion Gap 15, BUN 19, Creatinine 0.36 L, Estim Creat Clear Calc 209.15, Est GFR (MDRD) Non-Af 140, BUN/Creatinine Ratio 51.8 H, Glucose 238 H, Lactic Acid 1.2, Calcium 9.8, Phosphorus 4.4, Magnesium 2.2, Total Bilirubin 0.68, AST 60 H, ALT 206 H, Alkaline Phosphatase 81, Total Protein 7.6, Albumin 4.1, Globulin 3.6, Albumin/Globulin Ratio 1.1 05/03/25 17:45: Urine Color Yellow, Urine Clarity Clear, Urine pH 6.0, Ur Specific [place] 1.025, Urine Protein 15 H, Urine Glucose (UA) 1000 H, Urine Ketones 15 H, Urine Occult Blood Negative, Urine Nitrite Negative, Urine Bilirubin Negative, Urine Urobilinogen 1 H, Ur Leukocyte Esterase Negative, Urine RBC 0-5 SEEN, Urine WBC 0-5 SEEN, Ur Squamous Epith Cells 0-5 SEEN, Urine Bacteria 1+, Urine Mucus 0 SEEN 05/03/25 21:36: POC Glucose 215 H 05/04/25 02:10: WBC 7.5, RBC 3.97 L, Hgb 11.5 L, Hct 33.8 L, MCV 85.1, MCH 29.0, MCHC 34.0, RDW Std Deviation 41.1, RDW Coeff of Linda 14.3, Plt Count 365, MPV 9.1, Immature Gran % (Auto) 0.100, Neut % (Auto) 70.0, Lymph % (Auto) 21.4, [place] % (Auto) 7.1, Eos % (Auto) 0.7, Baso % (Auto) 0.7, Absolute Neuts (auto) 5.2, Absolute Lymphs (auto) 1.60, Nucleated RBC % 0, APTT 28.5, Sodium 139, Potassium 4.0, Chloride 103, Carbon Dioxide 22.4, Anion Gap 14, BUN 9, Creatinine 0.30 L, Estim Creat Clear Calc 262.93 H, Est GFR (MDRD) Non-Af 146, BUN/Creatinine Ratio 31.2 H, Glucose 204 H, Calcium 8.7, Total Bilirubin 0.58, AST 41 H, ALT 164 H, Alkaline Phosphatase 71, Total Protein 6.5, Albumin 3.6, Globulin 2.9, Albumin/Globulin Ratio 1.2 Imaging Radiology Impression Chest CTA 05/03/25 17:21 IMPRESSION: Few small segmental-subsegmental pulmonary arterial emboli. Small subpleural airspace opacity in the posterior right lung base may represent atelectasis versus a small pulmonary infarct. Reading Location: [id number] Assessment & Plan Assessment/Plan (1) Bilateral pulmonary embolism: (2) GI bleed: PLAN: The patient is a 30-year-old female with a complex medical history presenting with multiple, likely interrelated, issues: * Bilateral Pulmonary Emboli (PE) with Small Pulmonary Infarcts: This is the primary cause of her acute and worsening shortness of breath. She has risk factors including immobility (generalized weakness post-DKA, inability to ambulate, residing in SNF) and potentially receiving inadequate or subtherapeutic anticoagulation despite being on Lovenox (needs verification of dose and compliance). * Anemia (Hgb 11.5): Hemoglobin has dropped from 13.0. The patient is also experiencing lower GI bleeding. This is likely related to her current anticoagulation therapy (Lovenox) in the setting of her acute PE treatment/prophylaxis. The source of bleeding needs urgent investigation. * Generalized Weakness/Inability to Ambulate: Ongoing issue since her DKA admission, contributing significantly to her risk for venous thromboembolism (VTE). * History of Diabetes: Managed condition. * History of Bipolar Disorder: Managed condition. * Elevated ALT: Mildly elevated liver function test (LFT) that warrants monitoring or further workup if persistent, though likely not acute focus of current presentation.The current priority is managing the acute PE and concurrently addressing the significant lower GI bleed that is causing a drop in Hgb. The safety of continuing anticoagulation is a critical decision point. Plan * Pulmonary Embolism: * Being managed by hospitalist. She seems to be hemodynamically stable at this time. She is not requiring oxygen at this time. * She was transition from subcutaneous to heparin drip for tighter control given the concurrent bleeding. It is currently on hold at this time. * Gastrointestinal Bleeding/Anemia: * She will need diagnostic and therapeutic upper and lower endoscopies. * Immobility/VTE Prophylaxis: * Once acute bleed is controlled and therapeutic anticoagulation will be reassessed and regarding when to restart prophylactic and therapeutic anticoagulation. * Labs/Diagnostics: * Monitor complete blood count with differentials closely for ongoing blood loss. * Monitor LFTs and renal function. She will need workup for her elevated liver enzymes. Such as ESR, CRP, CPK, aldolase, anti-smooth muscle, antimitochondrial, LDH, IgG4, NICOLE comprehensive, ANCA, celiac profile and abdominal ultrasound with FibroScan, MRCP and possible liver biopsy. * Patient Education: * Discuss the urgency of the situation with the patient and her significant other, explaining the relationship between the blood thinners, the blood clots in her lungs, and the current bleeding episode. * Plaster Mold Maker on the importance of adhering to the treatment plan. Charges/Coding Visit Charges Inpatient E&M: 55397 Init Hosp L3
--- NOTE | 2025-05-04 08:52 | CASEMGMT ---
Addendum entered by Krystal An 05/04/25 09:03: Pt will need a new precert to return but can return once its submitted. SW updated. Original Note: Discharge Planning Updates sent via [facility] to [facility] with note asking if pt will need new precert. Awaiting response. Krystal An DC Planning Asst.
--- NOTE | 2025-05-04 09:43 | VDLE_ITS ---
Reason For Study Reason For Study: Pulmonary embolism RIGHT LEFT GSV is normal. GSV is normal. CFV is compressible, spontaneous, phasic, competent CFV is compressible, spontaneous, phasic, competent, and demonstrates normal augmentation. and demonstrates normal augmentation. FV is compressible, spontaneous, phasic, competent FV is compressible, spontaneous, phasic, competent and demonstrates normal augmentation. and demonstrates normal augmentation. POP V is compressible, spontaneous, phasic, competent POP V is compressible, spontaneous, phasic, competent and demonstrates normal augmentation. and demonstrates normal augmentation. T/P Trunk is compressible. T/P Trunk is compressible. PTV is compressible. PTV is compressible. RT PerV is compressible. LT PerV is compressible. Procedure This is a venous duplex using B-mode, color flow and spectral Doppler. Exam performed portable in patient room. A preliminary report was called and/or faxed to Margarito MEY[facility]. VL/Venous Duplex US - Rigo Extrem Interpretation Summary Deep veins of the bilateral lower extremities are patent and compressible segme ntally. There is no evidence of bilateral lower extremity deep vein thrombosis. The bilateral great saphenous veins appea r patent and compressible segmentally. Ordering Physician: Vance Blanco Referring Physician: Jamari Byrne Performed By: Kathy Collado RVT
[2025-05-04] MEDS: Lactated Ringers 1,000 ML 15 ML IV (14:49)
--- NOTE | 2025-05-04 15:08 | CHAPLAIN ---
Type of Pastoral Visit _x__ Initial Visit ___ Follow-up Visit ___ On-call Visit ___ General Patient Visit ___ Spiritual Assessment ___ Family Conference ___ Bereavement ___ Rapid Response ___ Code Blue ___ Other (describe below) Pastoral Care Referral From _x__ Patient ___ Family ___ Nurse ___ Physician ___ Human Services Assistant ___ Soloist Dancer ___ Other (describe below) Sacrament/Intervention ___ Active listening ___ Anointing ___ Nondenominational ___ Bereavement ___ Communion ___ Shayna exploration ___ ___ Life review _x__ Prayer ___ Reconciliation ___ Sacrament of Sick _x__ Supportive presence ___ Wedding ___ Other (describe below) Pastoral Comments patient is resting and SO is in the room at bedside; pt acknowledges that she is not feeling well but cannot think of anything that would be of help; pt is offered prayer and she says yes; offer of support to SO also
[2025-05-04 15:15] LABS: Internal QC Validated? YES +Cl - CLEAR BKGD; Pregnancy, Serum, hCG Quali. NEGATIVE Negative
[2025-05-04 15:16] LABS: Record Kit Lot#, Serum Preg. 0000980607
--- NOTE | 2025-05-04 15:22 | PCM.PRE.AN2 ---
ASA Classification* ASA Classification ASA Classification: 3 (T2DM, h/o bilateral PE, Asthma, HTN. ) Assessment & Plan Anesthesia* Anesthesia Assessment Anesthesia Assessment: Discussed sedation and/or anesthesia options, risks, benefits, and alternatives with patient/parents/legal guardian/POA. Questions invited. The patient/parents/legal guardian/POA seems to understand and agrees to proceed with anesthesia plan. Reviewed the physical assessment, medical history, allergy history and patient home medications list prior to surgery/procedure/anesthetic and documented any changes. Performed airway and anesthesia risk assessments. Anesthesia Type Anesthesia Type: MAC History Source History Obtained from:: Patient and Chart Anesthesia Focused Assessment* Temperature: 98.8 F Pulse Rate: 112 Blood Pressure: 156/99 Respiratory Rate: 16 Pulse Ox: 98 Oxygen Delivery Method: Room Air Airway Assessment Mouth opens: >3 cm Mallampati Score: III Neck Range of motion (ROM): Full ROM Labs Anesthesia Preop lab: CBC WBC, (4.4-11.0) 7.5 K/mm3 Today, 02:10 RBC, (4.2-5.4) 3.97 M/mm3 L Today, 02:10 Hgb, (12.0-15.0) 11.5 g/dL L Today, 02:10 Hct, (37-47) 33.8 % L Today, 02:10 Plt Count, (150-450) 365 K/mm3 Today, 02:10 CHEMISTRY Potassium, (3.3-5.1) 4.0 mmol/L Today, 02:10 Sodium, (133-145) 139 mmol/L Today, 02:10 Magnesium, (1.5-2.2) 2.2 mg/dL 05/03/25, 17:14 Phosphorus, (2.7-4.5) 4.4 mg/dL 05/03/25, 17:14 BUN, (4-19) 9 mg/dL Today, 02:10 Creatinine, (0.70-1.20) 0.30 mg/dL L Today, 02:10 Glucose, (70-99) 204 mg/dL H Today, 02:10 POC Glucose, (74-106) 176 mg/dL H Today, 11:22 TSH, (0.300-4.200) 1.130 uIU/mL 05/03/25, 04:25 COAG PT, (11.7-14.9) 13.4 SECONDS 05/03/25, 17:14 HCG, Quant, (1-3) < 1 mIU/mL 09/01/19, 15:49 Urine Test Positive Negative H 01/23/18, 08:06 Pre-Assessment Diagnosis/Proposed Procedure Planned Operative Procedure(s): EGD/colonoscopy as per GI team Anesthesia History Anesthesia History - order entry specialist: Anesthesia History - order entry specialist Hx Hospitalization No 01/21/25 13:27 Any Problems With Anesthesia No 01/21/25 13:27 Cholinesterase deficiency No 01/21/25 13:27 You/Your Family Experience No 01/21/25 13:27 fever (hyperthermia) with Relationship Recent Exposure to Contagious Disease Does patient have nerve No 01/21/25 13:27 stimulator Patient instructed to have device shut off --Does patient have Pacemaker or ICD? When Was Last Pacemaker Check QUESTION #4 FULL TEXT: You/Your Family Experience fever (hyperthermia) with Anesthesia Last Oral Intake Last Oral intake: Last Oral Intake NPO since Meds taken in AM with sips of water? Meds patient instructed to take am of surgery PONV PONV - order entry specialist: PONV - order entry specialist Female HX of Motion Sickness HX of N/V After Surgery Non-Smoker Duration of Surgery greater than 60 minutes Number of Risk Factors PONV Score Height & Weight Height & Weight: Anesthesia: Height & Weight Height 5 ft 2 in 05/04/25 10:07 Weight: 81.647 kg 05/04/25 10:07 Body Mass Index (BMI) 32.9 05/04/25 09:00 Respiratory Assessment Respiratory Assessment - order entry specialist: Respiratory Tract Infection Hx - order entry specialist Hx Respiratory Tract Infection No 01/21/25 13:27 STOP Sleep Apnea STOP Sleep Apnea - order entry specialist: STOP Sleep Apnea - order entry specialist Hx Hypertension No 05/04/25 12:28 Hx Sleep Apnea No 05/03/25 20:51 CPAP BIPAP Do you snore loudly (louder No 05/03/25 20:51 than talking or can be heard Do you often feel tired/ Yes 05/03/25 20:51 fatigued/ sleepy during daytime? Has anyone observed you stop No 05/03/25 20:51 breathing during sleep? STOP Results Negative 05/03/25 20:51 QUESTION #5 FULL TEXT : Do you snore loudly (louder than talking or can be heard through closed doors)? 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 Specify any problems Hx of Preganancy in last 3 No 05/03/25 20:51 Months Nurse Filling Out Transfusion AFLICKING 05/03/25 20:51 & Questions: Date: 05/03/25 05/03/25 20:51 Time: 21:00 05/03/25 20:51 Patient unable to answer at this time (ie. confused, unrespo /Reproduction History /Reproductive History - order entry specialist: /Reproductive Hx- order entry specialist Hx Now No 05/03/25 20:51 Gestational Age (in weeks): EDC: Hx Hx Para Hx Section SAB No 05/03/25 20:51 Does the father of the baby or his family experience fever w Father of the baby Malignant Hypertension history comment Active Medications Active Medications: Current Medications Generic Name Dose Route Start Last Admin Trade Name Freq PRN Reason Stop Dose Admin Acetaminophen 650 mg 05/03/25 20:51 05/03/25 21:51 Acetaminophen 325 Mg Tablet PO 650 mg Q4H PRN PRN Administration Fever, pain 1-03/18 Al Hydroxide/Mg Hydroxide 30 ml 05/03/25 20:51 Mag Hydrox/Al Hydrox/Simeth 30 Ml Udc PO Q6H PRN PRN Gastric Burning Albuterol Sulfate 2.5 mg 05/03/25 20:51 Albuterol 2.5 Mg/3 Ml Vial.Neb. INHALATION Q2H PRN PRN Dyspnea, wheezing Calamine/Phenol 1 applic 05/03/25 22:00 05/04/25 10:18 Menthol/Lanolin/Calamine/Znox 113 Gm Tube TOPICAL 1 applic BID JUSTIN Administration Protocol Fluoxetine HCl 20 mg 05/04/25 10:00 05/04/25 10:19 Fluoxetine 20 Mg Capsule PO 20 mg DAILY JUSTIN Administration Glucagon 1 mg 05/04/25 09:42 Glucagon 1 Mg/Ml Syringe IM X1 PRN Hypoglycemia Protocol Guaifenesin 20 ml 05/03/25 20:51 Guaifenesin 10 Ml Udc (200mg/10ml) PO Q4H PRN PRN COUGH Heparin Sodium (Porcine) 0 unit 05/03/25 19:26 Heparin Nomogram Adjustment 5,000 Unit/Ml Vial IV UD PRN Dose Adjustment Protocol Hydralazine HCl 10 mg 05/03/25 20:51 Hydralazine 20 Mg/Ml Vial IV Q4H PRN PRN SBP > 160 Protocol Heparin Sodium/Dextrose 25,000 units in 250 mls @ 8.376 mls/hr 05/03/25 19:30 05/04/25 00:35 CONT INF 0 unit/kg/hr .[id number] JUSTIN 0 mls/hr Protocol Titration 12 UNIT/KG/HR Sodium Chloride 250 mls @ 15 mls/hr 05/03/25 20:55 IV .[id number] PRN Saline Flush Sodium Chloride 250 mls @ 15 mls/hr 05/03/25 20:55 IV .[id number] PRN Additional IVPB Infusion Dextrose 250 mls @ 0 mls/hr 05/04/25 09:42 Dextrose 10%-Water IV .Q0M PRN HYPOGLYCEMIA Protocol As Directed Lactated Ringer's 1,000 mls @ 15 mls/hr 05/04/25 14:45 05/04/25 14:49 IV 15 mls/hr .Q48H JUSTIN Administration Insulin Glargine 10 unit 05/04/25 10:00 05/04/25 10:12 Insulin Glargine-Yfgn 100 Unit/Ml Pen SC Not Given BID JUSTIN Insulin Human Lispro 5 unit 05/04/25 07:00 05/04/25 11:53 Insulin Lispro 100 Unit/Ml Insuln.Pen SC Not Given TIDAC [facility] Insulin Human Lispro 0 unit 05/03/25 22:00 05/04/25 11:55 Insulin Lispro 100 Unit/Ml Insuln.Pen SC Not Given ACHS [facility] Protocol Melatonin 3 mg 05/03/25 20:51 Melatonin 3 Mg Tablet PO QHS PRN PRN INSOMNIA Metoprolol Tartrate 25 mg 05/04/25 03:50 05/04/25 10:19 Metoprolol Tartrate 25 Mg Tablet PO 25 mg BID JUSTIN Administration Protocol Nutritional Formula (Lactose Free) 120 ml 05/04/25 08:00 05/04/25 11:54 Glucerna Shake 120 Ml Liquid PO Not Given TIDCM JUSTIN Senna/Docusate Sodium 2 tablet 05/03/25 20:51 Senna/Docusate Sodium 1 Tablet PO BID PRN PRN Constipation Sodium Chloride 10 - 40 ml 05/03/25 20:55 0.9% Saline Lock 10 Ml Syringe IV UD PRN SALINE FLUSH Tizanidine HCl 2 mg 05/04/25 01:53 05/04/25 02:36 Tizanidine Hcl 2 Mg Tablet PO 2 mg Q8H PRN PRN Administration spasms PFSH Medical History Anxiety and depression Former smoker Wears dentures Wears glasses Bipolar disorder Gastric reflux Insulin dependent diabetes mellitus Asthma Osteoarthritis Diabetes Home Medications Medication Instructions Recorded Last Taken Type fluoxetine 20 mg capsule 20 mg PO DAILY anxiety 11/15/24 12/16/24 History glipizide 5 mg tablet 5 mg PO BID dm 04/20/25 Unknown History metformin 500 mg tablet 500 mg PO BID dm 04/20/25 Unknown History insulin glargine-yfgn 100 unit/mL 10 unit (0.1 mL) subcut BID #0 mL 04/26/25 Unknown Rx (3 mL) subcutaneous pen insulin lispro 100 unit/mL 5 unit (0.05 mL) subcut TIDAC #0 mL 04/26/25 Unknown Rx subcutaneous pen (Humalog KwikPen (U-100) Insulin) melatonin 5 mg capsule 5 mg PO QHS 05/03/25 Unknown History metoprolol tartrate 25 mg tablet 25 mg PO BID 05/04/25 Unknown History Allergy/AdvReac Type Severity Reaction Status Date / Time aripiprazole (From Abilify) AdvReac Other Verified 05/03/25 17:05 metoclopramide (From Reglan) AdvReac Other Verified 05/03/25 17:05 ondansetron (From Zofran) AdvReac Vomiting Verified 05/03/25 17:05 quetiapine (From Seroquel) AdvReac Other Verified 05/03/25 17:05 sertraline (From Zoloft) AdvReac Other Verified 05/03/25 17:05 Family History Father Heart disease Hyperlipemia Mother COPD (chronic obstructive pulmonary disease) Surgical History History of dilation and curettage History of oral surgery History of cholecystectomy Social History household members: none housing: [facility] number of children: 2 service: No current occupational status: disabled Smoking Status: Former smoker alcohol intake: never substance use type: does not use Review of Systems (Anesthesia) ROS Narrative System reviewed and no additional complaints, except as documented. Physical Exam Const alert, oriented x3 and average body habitus Resp normal respiratory effort, normal air movement and clear to auscultation bilaterally Cardio regular rate, regular rhythm and no murmurs; Negative for diaphoretic
[2025-05-04] MEDS: Lidocaine 1% (5 ml sdv) 5 ML Vial 10 ML IV (16:09)
--- NOTE | 2025-05-04 16:26 | OP.PROVAT_ITS ---
05/04/2025 Jamari Byrne Md Re : Upper GI endoscopy procedure for Melissa Byrne Dear Chavez This procedure was performed on Sunday, May 04, 2025. My impressions and recommendations are as follows: Impressions : - Normal esophagus. - No gross lesions in the entire stomach. - No gross lesions in the entire examined duodenum. - No specimens collected. Recommendations : - Return patient to [facility] for ongoing care. - Resume regular diet. - Continue present medications. My findings are described in the full procedure note, which is enclosed. If I can be of further assistance, please feel free to contact me at . Sincerely, Abad Rice, 05/04/2025 4:26:10 PM This report has been signed electronically.
--- NOTE | 2025-05-04 16:26 | OP.EGD_ITS ---
Patient Name: Melissa Byrne Procedure Date: 05/04/2025 4:05 PM Date of : 1995 Age: 30 Procedure: Upper GI endoscopy Indications: Iron deficiency anemia, Hematochezia Providers: Abad Rice DO Medicines: Monitored Anesthesia Care Patient Profile: This is a 30 year old female. Refer to note in patient chart for documentation of history and physical. Patient has symptoms. Complications: No immediate complications. Procedure: Pre-Anesthesia Assessment: - Prior to the procedure, a History and Physical was performed, and patient medications and allergies were reviewed. The patient is competent. The risks and benefits of the procedure and the sedation options and risks were discussed with the patient. All questions were answered and informed consent was obtained. Patient identification and proposed procedure were verified by the physician in the pre-procedure area. Mental Status Examination: alert and oriented. Airway Examination: normal oropharyngeal airway and neck mobility. Respiratory Examination: clear to auscultation. CV Examination: normal. Prophylactic Antibiotics: The patient does not require prophylactic antibiotics. Prior Anticoagulants: The patient has taken no anticoagulant or antiplatelet agents except for NSAID medication. ASA Grade Assessment: II - A patient with mild systemic disease. After reviewing the risks and benefits, the patient was deemed in satisfactory condition to undergo the procedure. The anesthesia plan was to use monitored anesthesia care (MAC). Immediately prior to administration of medications, the patient was re-assessed for adequacy to receive sedatives. The heart rate, respiratory rate, oxygen saturations, blood pressure, adequacy of pulmonary ventilation, and response to care were monitored throughout the procedure. The physical status of the patient was re-assessed after the procedure. After obtaining informed consent, the endoscope was passed under direct vision. Throughout the procedure, the patient's blood pressure, pulse, and oxygen saturations were monitored continuously. The Colonoscope was introduced through the mouth, and advanced to the fourth part of the duodenum. Small bowel enteroscopy was deemed necessary. The upper GI endoscopy was accomplished without difficulty. The patient tolerated the procedure well. Scope In: 4:11:51 PM Scope Out: 4:13:30 PM Total Procedure Duration Time 0 hours 1 minute 39 seconds Findings: The examined esophagus was normal. No gross lesions were noted in the entire examined stomach. No gross lesions were noted in the entire examined duodenum. Impression: - Normal esophagus. - No gross lesions in the entire stomach. - No gross lesions in the entire examined duodenum. - No specimens collected. Recommendation: - Return patient to [facility] for ongoing care. - Resume regular diet. - Continue present medications. Procedure Code(s): --- Professional --- 39425, Small intestinal endoscopy, enteroscopy beyond second portion of duodenum, not including ileum; diagnostic, including collection of specimen(s) by brushing or washing, when performed (separate procedure) CPT copyright 2021 [employer]. All rights reserved. The codes documented in this report are preliminary and upon cash van salesperson review may be revised to meet current compliance requirements. Abad Rice DO 05/04/2025 4:26:10 PM This report has been signed electronically. Number of Addenda: 0 Note Initiated On: 05/04/2025 4:05 PM
--- NOTE | 2025-05-04 16:29 | OP.COLON_ITS ---
Patient Name: Melissa Byrne Procedure Date: 05/04/2025 4:13 PM Date of : 1995 Age: 30 Procedure: Colonoscopy Indications: Hematochezia Providers: Abad Rice DO Medicines: Monitored Anesthesia Care Patient Profile: This is a 30 year old female. Refer to note in patient chart for documentation of history and physical. Patient has symptoms. Last Colonoscopy: none. The patient's first colonoscopy is today. Complications: No immediate complications. Procedure: Pre-Anesthesia Assessment: - Prior to the procedure, a History and Physical was performed, and patient medications and allergies were reviewed. The patient is competent. The risks and benefits of the procedure and the sedation options and risks were discussed with the patient. All questions were answered and informed consent was obtained. Patient identification and proposed procedure were verified by the physician in the pre-procedure area. Mental Status Examination: alert and oriented. Airway Examination: normal oropharyngeal airway and neck mobility. Respiratory Examination: clear to auscultation. CV Examination: normal. Prophylactic Antibiotics: The patient does not require prophylactic antibiotics. Prior Anticoagulants: The patient has taken no anticoagulant or antiplatelet agents except for NSAID medication. ASA Grade Assessment: II - A patient with mild systemic disease. After reviewing the risks and benefits, the patient was deemed in satisfactory condition to undergo the procedure. The anesthesia plan was to use monitored anesthesia care (MAC). Immediately prior to administration of medications, the patient was re-assessed for adequacy to receive sedatives. The heart rate, respiratory rate, oxygen saturations, blood pressure, adequacy of pulmonary ventilation, and response to care were monitored throughout the procedure. The physical status of the patient was re-assessed after the procedure. After I obtained informed consent, the scope was passed under direct vision. Throughout the procedure, the patient's blood pressure, pulse, and oxygen saturations were monitored continuously. The Colonoscope was introduced through the anus with the intention of advancing to the cecum. The scope was advanced to the sigmoid colon before the procedure was aborted. Medications were given. The colonoscopy was performed without difficulty. The patient tolerated the procedure well. The quality of the bowel preparation was poor. Scope In: 4:16:38 PM Scope Out: 4:17:38 PM Total Procedure Duration Time 0 hours 1 minute 0 seconds Findings: The perianal and digital rectal examinations were normal. Copious quantities of solid stool was found in the entire colon, precluding visualization. Lavage of the area was performed using greater than 500 mL of sterile water, resulting in incomplete clearance with continued poor visualization. Impression: - Preparation of the colon was poor. - Stool in the entire examined colon. - No specimens collected. Recommendation: - Return patient to [facility] for ongoing care. - Resume regular diet. - Continue present medications. - Repeat colonoscopy at the next available appointment because the bowel preparation was poor. Patient will have to take a bowel prep orally. - Okay to restart anticoagulation Procedure Code(s): --- Professional --- 60924, 53, Colonoscopy, flexible; diagnostic, including collection of specimen(s) by brushing or washing, when performed (separate procedure) CPT copyright 2021 [employer]. All rights reserved. The codes documented in this report are preliminary and upon business continuity specialist review may be revised to meet current compliance requirements. Abad Rice DO 05/04/2025 4:29:16 PM This report has been signed electronically. Number of Addenda: 0 Note Initiated On: 05/04/2025 4:13 PM
--- NOTE | 2025-05-04 16:29 | OP.PROVAT_ITS ---
05/04/2025 Jamari Byrne Md Re : Colonoscopy procedure for Melissa Byrne Dear Chavez This procedure was performed on Sunday, May 04, 2025. My impressions and recommendations are as follows: Impressions : - Preparation of the colon was poor. - Stool in the entire examined colon. - No specimens collected. Recommendations : - Return patient to [facility] for [facility] care. - Resume regular diet. - Continue present medications. - Repeat colonoscopy at the next available appointment because the bowel preparation was poor. Patient will have to take a bowel prep orally. - Okay to restart anticoagulation My findings are described in the full procedure note, which is enclosed. If I can be of further assistance, please feel free to contact me at . Sincerely, Abad Rice, 05/04/2025 4:29:16 PM This report has been signed electronically.
--- NOTE | 2025-05-04 16:31 | PCM.POST.ANE ---
Anesthesia: Postop Eval I Current Vital Signs Temperature: 97.6 F Pulse Rate: 98 Blood Pressure: 130/98 Respiratory Rate: 16 Pulse Ox: 99 Assessment Airway patent: Yes Spontaneous unlabored respirations: Yes nausea: No Vomiting: No Anesthesia Complication: No Fluid Hydration Crystalloid volume administer (ml): 400 Total IV fluid infused: 400 Progress Note Anesthesia document: Postop Eval 1 completed: Yes
--- NOTE | 2025-05-04 16:57 | POSTOPAN2_ITS ---
Anesthesia Postop Eval I Sum Postop Eval Completion status Anesthesia document: Postop Eval 1 completed: Yes Anesthesia Postop Eval I Summary Anesthesia Postop Eval I Summary: Anesthesia Postop Eval I: Assessment Summary Airway patent Yes 05/04/25 16:31 STRUCTURAL SHOP [email or web address] Spontaneous unlabored Yes 05/04/25 16:31 STRUCTURAL SHOP [email or web address] respirations Mental status nausea No 05/04/25 16:31 STRUCTURAL SHOP [email or web address] Vomiting No 05/04/25 16:31 STRUCTURAL SHOP [email or web address] Anesthesia Postop Eval I: Fluid Summary Crystalloid volume administer 400 05/04/25 16:31 STRUCTURAL SHOP [email or web address] (ml) Colloids volume administered ( ml) Blood Product volume administered (ml) Total IV fluid infused 400 05/04/25 16:31 STRUCTURAL SHOP [email or web address] Anesthesia Postop Eval I: Summary Notes Anesthesia Complication No 05/04/25 16:31 STRUCTURAL SHOP [email or web address] Anesthesia Complication Comment: Post-operative progress note Anesthesia: Postop Eval II Evaluation Mental status: Awake Pain Level: 0 nausea: No Vomiting: No Complications Anesthesia Complication: No
--- NOTE | 2025-05-04 16:57 | PCM.POSTANE2 ---
Anesthesia Postop Eval I Sum Postop Eval Completion status Anesthesia document: Postop Eval 1 completed: Yes Anesthesia Postop Eval I Summary Anesthesia Postop Eval I Summary: Anesthesia Postop Eval I: Assessment Summary Airway patent Yes 05/04/25 16:31 ELECTION [email or web address] Spontaneous unlabored Yes 05/04/25 16:31 ELECTION [email or web address] respirations Mental status nausea No 05/04/25 16:31 ELECTION [email or web address] Vomiting No 05/04/25 16:31 ELECTION [email or web address] Anesthesia Postop Eval I: Fluid Summary Crystalloid volume administer 400 05/04/25 16:31 ELECTION [email or web address] (ml) Colloids volume administered ( ml) Blood Product volume administered (ml) Total IV fluid infused 400 05/04/25 16:31 ELECTION [email or web address] Anesthesia Postop Eval I: Summary Notes Anesthesia Complication No 05/04/25 16:31 ELECTION [email or web address] Anesthesia Complication Comment: Post-operative progress note Anesthesia: Postop Eval II Evaluation Mental status: Awake Pain Level: 0 nausea: No Vomiting: No Complications Anesthesia Complication: No
[2025-05-04] MEDS: 0.9% Saline Lock 10 ML Syringe IV (18:16)
[2025-05-04] MEDS: Insulin Glargine-YFGN 100 UNIT/ML Pen 10 UNIT SC (21:20)
[2025-05-05] VITALS (9 sets, daily range): BP systolic 115–156; BP diastolic 88–112; PULSE 114–123; RESP 16–18; TEMP 36.1–36.8; O2SAT 95–100; BMI 32.3
[2025-05-05 05:31] LABS: Hematocrit 32.7 % (37-47); Hemoglobin 11.5 g/dL (12.0-15.0); Immature Granulocytes Count 0.010 X10^3/uL (0.0-0.0); Mean Corp Hgb Conc 35.2 g/dL (32-36); Mean Corpuscular Volume 83.2 fL (81-99); Mean Platelet Vol. 10.1 fl (6.2-12.0); NRBC Flagged by Analyzer 0 % (0-5); Platelet Count 313 K/mm3 (150-450); RBC Distribution Width CV 14.2 % (11.6-14.6); RBC Distribution Width SD 41.1 fl (35.1-43.9); Red Blood Count 3.93 M/mm3 (4.2-5.4); White Blood Count 6.1 K/mm3 (4.4-11.0)
[2025-05-05 05:52] LABS: Anion Gap 14 (5-15); BUN 6 mg/dL (4-19); BUN/Creat Ratio 24.0 RATIO (10-20); Calcium,Total 9.0 mg/dL (7.6-11.0); Carbon Dioxide 22.6 mmol/L (21.0-32.0); Chloride 98 mmol/L (98-108); Glucose 173 mg/dL (70-99); Magnesium 2.0 mg/dL (1.5-2.2); Potassium 3.4 mmol/L (3.3-5.1)
--- NOTE | 2025-05-05 06:47 | EKG12_ITS ---
Test Reason : CP Blood Pressure : */* mmHG Vent. Rate : 117 BPM Atrial Rate : 117 BPM P-R Int : 114 ms QRS Dur : 68 ms QT Int : 342 ms P-R-T Axes : 44 57 63 degrees QTcB Int : 477 ms Sinus tachycardia Otherwise normal ECG When compared with ECG of 03-May-2025 17:05, No significant change was found Confirmed by ANASTASIYA ORDOÑEZ ([id number]), map editor JOSE GALDAMEZ ([id number]) on 05/09/2025 6:45:08 AM Referred By: Vance Blanco Confirmed By: ANASTASIYA ORDOÑEZ
--- NOTE | 2025-05-05 07:01 | NURSING ---
pt complained of new onset chest pain around 6:40 brian. ordered 12 lead ekg and called respiratory therapist. gave 12 lead ekg paper print out to charge nurse to notify Doc. vitals taken.
--- NOTE | 2025-05-05 07:50 | PCM.PN.HOSP ---
Reason for Visit Chief Complaint: Dyspnea, tachycardia. Subjective Subjective Patient colonoscopy performed the day prior was nondiagnostic given poor prep Objective Data Objective Data Vital Signs: Vital Signs Temp Pulse Resp BP Pulse Ox O2 Del Method 98.2 F 122 H 18 142/105 H 100 Room Air 05/05/25 06:41 05/05/25 06:41 05/05/25 06:41 05/05/25 06:41 05/05/25 06:41 05/05/25 06:41 Oxygen Delivery Method Room Air Weight: 81.647 kg Body Mass Index (BMI) 32.9 Intake & Output: Intake and Output for Last 24 Hours 05/03/25 05/04/25 05/05/25 23:59 23:59 23:59 Intake Total 1000 / 1000 2021.94 / 2021. Output Total 1200 / 1200 2000 / 2600 800 / 800 Balance -200 / -200 22.94 / -577.06 -800 / -800 Lab / Micro Data 05/05/25 04:37 05/05/25 04:37 Labs: Laboratory Results - last 24 hr 05/04/25 02:10: Serum , Qual NEGATIVE 05/04/25 08:06: POC Glucose 184 H 05/04/25 11:22: POC Glucose 176 H 05/04/25 17:29: POC Glucose 156 H 05/04/25 21:16: POC Glucose 140 H 05/05/25 04:37: WBC 6.1, RBC 3.93 L, Hgb 11.5 L, Hct 32.7 L, MCV 83.2, MCH 29.3, MCHC 35.2, RDW Std Deviation 41.1, RDW Coeff of Linda 14.2, Plt Count 313, MPV 10.1, Immature Gran % (Auto) 0.200, Neut % (Auto) 56.0, Lymph % (Auto) 32.9, [place] % (Auto) 8.1, Eos % (Auto) 2.0, Baso % (Auto) 0.8, Absolute Neuts (auto) 3.4, Absolute Lymphs (auto) 1.99, Nucleated RBC % 0, Sodium 134, Potassium 3.4, Chloride 98, Carbon Dioxide 22.6, Anion Gap 14, BUN 6, Creatinine 0.27 L, Estim Creat Clear Calc 301.66 H, Est GFR (MDRD) Non-Af 150, BUN/Creatinine Ratio 24.0 H, Glucose 173 H, Calcium 9.0, Phosphorus 3.8, Magnesium 2.0 Radiography Diagnostic Testing: Radiology Impression Venous Doppler Study 05/04/25 09:43 Interpretation Summary Deep veins of the bilateral lower extremities are patent and compressible segmentally. There is no evidence of bilateral lower extremity deep vein thrombosis. The bilateral great saphenous veins appear patent and compressible segmentally. Ordering Physician: Vance Blanco Referring Physician: Jamari Byrne Performed By: Kathy Collado RVJad Physical Exam Narrative GENERAL: cooperative HEENT: Atraumatic; normocephalic EYES; Anicteric, Normal Conjunctiva NECK; supple, normal thyroid, RESPIRATORY: Diminished to auscultation CARDIOVASCULAR: Regular S1 S2, GI: soft, normoactive bowel sounds, : No Renal angle tenderness; EXTREMITIES: No edema, no clubbing, MUSCULOSKELETAL: no muscle wasting NEURO: Awake; no lateralizing signs. SKIN: No Rash PSYCH; Flat affect Assessment & Plan Assessment/Plan (1) Bilateral pulmonary embolism: PLAN: Plan Patient is a 30-year-old lady with multiple comorbidities resident at an extended care facility brought in with progressive generalized weakness and shortness of breath. Imaging studies obtained on admission demonstrated Few small segmental-subsegmental pulmonary arterial emboli. Small subpleural airspace opacity in the posterior right lung base may represent atelectasis versus a small pulmonary infarct. 1. Acute pulmonary embolism with suspected pulmonary infarct – Patient admitted to a monitored bed started on heparin drip 2D echo ordered ordered bilateral lower venous duplex to assess for possible IVC filter placement in case patient is not able to tolerate systemic anticoagulation – 05/05/2025; patient bilateral venous duplex negative for DVT. Patient was on heparin plan is to switch to DOAC 2. Suspected lower GI bleed – Patient seen in consultation by GI plan is for patient to undergo endoscopic evaluation given the fact that patient may need to be on long-term systemic anticoagulation. – 05/05/2025;Patient colonoscopy performed the day prior was nondiagnostic given poor prep. Patient has however not had any recurrence of her GI bleed 3. Diabetes mellitus type II -patient's oral hypoglycemics held. Placed on long acting insulin, Accu-Cheks a.c. and at bedtime and covered with sliding scale insulin 4. Mild intermittent asthma – Aerosol treatments as needed 5. Depression – Patient is on fluoxetine continue 6. Class I obesity with BMI of 31 – Complicating care weight loss advised 7. Hypertension – Blood pressure control not optimal with blood pressure 154/101 this a.m. adjusted home medications 8. Physical deconditioning – Requested for PT OT eval and social director to assist with discharge planning – 05/05/2025; plan is for patient to be discharged back to [facility] pending insurance approval Time spent in the patient's overall evaluation,decision-making process, review of diagnostic data, adjustment of management, discussion with other providers, nursing nursing and ancillary staff involved in patient's care documentation, 38 Minutes Charges/Coding Visit Charges Inpatient E&M: 59372 Subs Hosp L2
[2025-05-05] MEDS: APIXABAN 5 MG TABLET 10 MG PO (08:47)
[2025-05-05] MEDS: Insulin Glargine-YFGN 100 UNIT/ML Pen 10 UNIT SC ×2 (08:57→21:43)
[2025-05-05] MEDS: Glucerna Shake 120 ML LIQUID PO ×2 (09:01→16:51)
--- NOTE | 2025-05-05 11:04 | EKG12_ITS ---
Test Reason : CP Blood Pressure : */* mmHG Vent. Rate : 105 BPM Atrial Rate : 105 BPM P-R Int : 120 ms QRS Dur : 70 ms QT Int : 352 ms P-R-T Axes : 41 48 45 degrees QTcB Int : 465 ms Sinus tachycardia Otherwise normal ECG When compared with ECG of 05-May-2025 06:46, MANUAL COMPARISON REQUIRED DATA IS UNCONFIRMED Confirmed by ANASTASIYA ORDOÑEZ ([id number]), associate editor JOSE GALDAMEZ ([id number]) on 05/09/2025 6:45:21 AM Referred By: Vance Blnaco Confirmed By: ANASTASIYA ORDOÑEZ
[2025-05-05 12:30] LABS: Troponin T High Sensitivity 12 ng/L (<=14)
[2025-05-05 14:03] LABS: Troponin T High Sens 2 HR 14 ng/L (<=14)
[2025-05-05 16:20] LABS: Troponin T High Sens 4 HR 13 ng/L (<=14)
[2025-05-06] VITALS (7 sets, daily range): BP systolic 138–159; BP diastolic 96–112; PULSE 110–129; RESP 17–18; TEMP 36.3–36.8; O2SAT 97–99; BMI 32.3; BMI 32.0
[2025-05-06 06:54] LABS: Hematocrit 37.3 % (37-47); Hemoglobin 13.2 g/dL (12.0-15.0); Immature Granulocytes Count 0.010 X10^3/uL (0.0-0.0); Mean Corp Hgb Conc 35.4 g/dL (32-36); Mean Corpuscular Volume 83.8 fL (81-99); Mean Platelet Vol. 9.0 fl (6.2-12.0); NRBC Flagged by Analyzer 0 % (0-5); Platelet Count 348 K/mm3 (150-450); RBC Distribution Width CV 14.6 % (11.6-14.6); RBC Distribution Width SD 42.5 fl (35.1-43.9); Red Blood Count 4.45 M/mm3 (4.2-5.4); White Blood Count 5.7 K/mm3 (4.4-11.0)
[2025-05-06 07:23] LABS: Anion Gap 17 (5-15); BUN 8 mg/dL (4-19); BUN/Creat Ratio 25.3 RATIO (10-20); Calcium,Total 9.7 mg/dL (7.6-11.0); Carbon Dioxide 21.3 mmol/L (21.0-32.0); Chloride 99 mmol/L (98-108); Glucose 191 mg/dL (70-99); Potassium 4.1 mmol/L (3.3-5.1)
--- NOTE | 2025-05-06 07:27 | PCM.PN.HOSP ---
Reason for Visit Chief Complaint: Dyspnea, tachycardia. Subjective Subjective Patient was started on apixaban however she did develop bleeding per rectum apixaban subsequently discontinued. Given the echo Finding on patient CTA repeat CT was ordered for further evaluation prior to committing patient to long-term systemic anticoagulation. Patient repeat CT demonstrated the pulmonary embolism being present. Patient subsequently started on heparin pending repeat endoscopic evaluation by GI Objective Data Objective Data Vital Signs: Vital Signs Temp Pulse Resp BP Pulse Ox O2 Del Method 97.4 F L 112 H 17 138/100 H 99 Room Air 05/06/25 04:00 05/06/25 04:00 05/06/25 04:00 05/06/25 04:00 05/06/25 04:00 05/06/25 04:00 Oxygen Delivery Method Room Air Weight: 80.1 kg Body Mass Index (BMI) 32.3 Intake & Output: Intake and Output for Last 24 Hours 05/04/25 05/05/25 05/06/25 23:59 23:59 23:59 Intake Total 2.94 / 2021.94 0 / 0 Output Total 1999 / 2599 1400 / 1400 200 / 200 Balance 22.94 / -577.06 -1400 / -1400 -200 / -200 Lab / Micro Data 05/06/25 06:44 05/06/25 06:44 Labs: Laboratory Results - last 24 hr 05/05/25 07:41: POC Glucose 172 H 05/05/25 12:00: Troponin T High Sens 12 05/05/25 12:28: POC Glucose 169 H 05/05/25 13:40: Troponin T Hi Sens 2 Hr 14 05/05/25 15:23: Troponin T Hi Sens 4Hr 13 05/05/25 16:48: POC Glucose 165 H 05/05/25 21:38: POC Glucose 153 H 05/06/25 06:44: WBC 5.7, RBC 4.45, Hgb 13.2, Hct 37.3, MCV 83.8, MCH 29.7, MCHC 35.4, RDW Std Deviation 42.5, RDW Coeff of Linda 14.6, Plt Count 348, MPV 9.0, Immature Gran % (Auto) 0.200, Neut % (Auto) 64.1, Lymph % (Auto) 24.1, [place] % (Auto) 9.1, Eos % (Auto) 1.6, Baso % (Auto) 0.9, Absolute Neuts (auto) 3.7, Absolute Lymphs (auto) 1.38, Nucleated RBC % 0, Sodium 137, Potassium 4.1, Chloride 99, Carbon Dioxide 21.3, Anion Gap 17 H, BUN 8, Creatinine 0.32 L, Estim Creat Clear Calc 252.01 H, Est GFR (MDRD) Non-Af 144, BUN/Creatinine Ratio 25.3 H, Glucose 191 H, Calcium 9.7 Micro: Microbiology 05/03/25 17:45 Urine Catheter - [facility] Urine Culture - Preliminary Culture exhibits no growth. Physical Exam Narrative GENERAL: cooperative HEENT: Atraumatic; normocephalic EYES; Anicteric, Normal Conjunctiva NECK; supple, normal thyroid, RESPIRATORY: Diminished to auscultation CARDIOVASCULAR: Regular S1 S2, GI: soft, normoactive bowel sounds, : No Renal angle tenderness; EXTREMITIES: No edema, no clubbing, MUSCULOSKELETAL: no muscle wasting NEURO: Awake; no lateralizing signs. SKIN: No Rash PSYCH; Flat affect Assessment & Plan Assessment/Plan (1) Bilateral pulmonary embolism: PLAN: Plan Patient is a 30-year-old lady with multiple comorbidities resident at an extended care facility brought in with progressive generalized weakness and shortness of breath. Imaging studies obtained on admission demonstrated Few small segmental-subsegmental pulmonary arterial emboli. Small subpleural airspace opacity in the posterior right lung base may represent atelectasis versus a small pulmonary infarct. 1. Acute pulmonary embolism with suspected pulmonary infarct – Patient admitted to a monitored bed started on heparin drip 2D echo ordered ordered bilateral lower venous duplex to assess for possible IVC filter placement in case patient is not able to tolerate systemic anticoagulation – 05/05/2025; patient bilateral venous duplex negative for DVT. Patient was on heparin plan is to switch to DOAC 05/06/2025. Patient was started on apixaban however she did develop bleeding per rectum apixaban subsequently discontinued. Given the echo Finding on patient CTA repeat CT was ordered for further evaluation prior to committing patient to long-term systemic anticoagulation. Patient repeat CT demonstrated the pulmonary embolism being present. Patient subsequently started on heparin pending repeat endoscopic evaluation by GI 2. Suspected lower GI bleed – Patient seen in consultation by GI plan is for patient to undergo endoscopic evaluation given the fact that patient may need to be on long-term systemic anticoagulation. – 05/05/2025;Patient colonoscopy performed the day prior was nondiagnostic given poor prep. Patient has however not had any recurrence of her GI bleed 3. Diabetes mellitus type II -patient's oral hypoglycemics held. Placed on long acting insulin, Accu-Cheks a.c. and at bedtime and covered with sliding scale insulin 4. Mild intermittent asthma – Aerosol treatments as needed 5. Depression – Patient is on fluoxetine continue 6. Class I obesity with BMI of 31 – Complicating care weight loss advised 7. Hypertension – Blood pressure control not optimal with blood pressure 154/101 this a.m. adjusted home medications 8. Physical deconditioning – Requested for PT OT eval and social worker delinquency prevention to assist with discharge planning – 05/05/2025; plan is for patient to be discharged back to [facility] pending insurance approval Time spent in the patient's overall evaluation,decision-making process, review of diagnostic data, adjustment of management, discussion with other providers, nursing nursing and ancillary staff involved in patient's care documentation, 38 Minutes Charges/Coding Visit Charges Inpatient E&M: 91108 Subs Hosp L2
--- NOTE | 2025-05-06 07:35 | CT_ITS ---
PROCEDURE: CTA CHEST W/WO CONTRAST 05/06/2025 REASON FOR EXAM: PE TECHNIQUE: Procedure Code: [id number] Modality: CT Procedure: CTA CHEST W/WO CONTRAST Multiplanar Sagittal and Coronal images were obtained. 3D post processing was performed CONTRAST: Isovue 370 VOLUME: 95 mL One or more dose reduction techniques were used (e.g., Automated exposure control, adjustment of the mA and/or kV according to patient size, use of iterative reconstruction technique). RADIATION DOSE SUMMARY: CTDlvol: 21 mGy DLP: 405 mGycm COMPARISON: May 03, 2025 # of known CTs in the past 12 months: 2 # of known Cardiac Nuclear Medicine Studies in the past 12 months: 0 FINDINGS: Thoracic Aorta: Timing and quality of the contrast bolus is diagnostic. There is no evidence of acute aortic rupture, aneurysm or dissection. Heart: Heart is normal size. Left ventricular hypertrophy is present. Pulmonary Vessels: Segmental pulmonary embolus in the right lower lobe is similar to prior exam. A new, small focus of thrombus is shown in the segmental pulmonary artery of the left lower lobe. Clot burden is fairly small overall. No central thrombus. RV strain: RV/LV ratio (>1.0): 1.0 Straightening or bowing of the interventricular septum: Absent Enlargement of the main PA: Absent Reflux of contrast into the hepatic IVC: Absent Hardware: None Lymph nodes: None appear enlarged Lungs and Airways: No new consolidation or infarct. No mass or new nodule. 5 mm noncalcified nodule left lower lobe image 61 unchanged subsegmental atelectasis right lung base Pleura: No pleural effusion or pneumothorax Upper Abdomen: Hypodensity at the interlobar fissure likely represent some focal fat. No change. Cholecystectomy Bones: Unremarkable CT/CTA Chest W/WO Contrast IMPRESSION: 1. Pulmonary embolus is present. The small amount of clot involving the segme ntal and subsegmental vessels right lower lobe is unchanged. Tiny, new focus in the left lower lobe. Overall clot burden is nissa rly small. No significant features of right ventricular strain at this time. 2. No new pulmonary infarct or consolidation. Linear atelectasis or scarring right lung base. 3. 5 mm noncalcified pulmonary nodule left lower lobe. No follow-up required in this 30-year-old patient unless there is a known primary. Reading Location: [id number]
--- NOTE | 2025-05-06 08:49 | CASEMGMT ---
Discharge Planning Updates sent via [facility] to [facility] with request to submit for precert (pt can return once submitted). Krystal An DC Planning Asst.
[2025-05-06] MEDS: Insulin Glargine-YFGN 100 UNIT/ML Pen 10 UNIT SC (09:32)
[2025-05-06 11:51] LABS: Hematocrit 38.4 % (37-47); Hemoglobin 13.1 g/dL (12.0-15.0); Immature Granulocytes Count 0.020 X10^3/uL (0.0-0.0); Mean Corp Hgb Conc 34.1 g/dL (32-36); Mean Corpuscular Volume 85.0 fL (81-99); Mean Platelet Vol. 9.2 fl (6.2-12.0); NRBC Flagged by Analyzer 0 % (0-5); Platelet Count 373 K/mm3 (150-450); RBC Distribution Width CV 14.6 % (11.6-14.6); RBC Distribution Width SD 43.1 fl (35.1-43.9); Red Blood Count 4.52 M/mm3 (4.2-5.4); White Blood Count 6.7 K/mm3 (4.4-11.0)
[2025-05-06 11:59] LABS: Partial Thromboplast Time 24.8 Seconds (24.1-36.2); Prothrombin Time (Protime)PT. 13.7 SECONDS (11.7-14.9)
[2025-05-06] MEDS: HEPARIN/D5w 25,000 UNITS 25,000 UNITS/250 ML IV.SOLN. 12 UNITS CONT INF (12:26)
--- NOTE | 2025-05-06 13:11 | PN_ITS ---
Progress Note 30-year-old female presents to the Emergency Department with generalized weakness and profound anemia secondary to lower gastrointestinal bleeding. She reports continued symptoms related to the bleeding and ongoing need for definitive management to facilitate safe anticoagulation for her pulmonary emboli. Patient expresses significant reluctance and refusal regarding the standard oral bowel preparation regimen required for a complete colonoscopy, citing discomfort with the process during the previous attempt (refused oral prep, received three soapsuds enemas with inadequate visualization). She denies abdominal pain but acknowledges the need to determine the cause of her bleeding. * Imaging (Repeat CT/CTA Chest W/WO Contrast): * Pulmonary embolism present; small amount of unchanged clot in the right lower lobe (segmental/subsegmental). * Tiny new focus of PE noted in the left lower lobe. * Overall clot burden is small with no significant features of right ventricular strain. * 5 mm non-calcified pulmonary nodule in the left lower lobe. * No new pulmonary infarct or consolidation. Physical Exam Const alert, oriented x3, no apparent distress and healthy appearing General Appearance: cooperative GI normal to inspection, nondistended, normoactive bowel sounds, soft to palpation, non-tender and non-distended Percussion: normal to percussion Rectal Exam: deferred Assessment & Plan Assessment/Plan (1) GI bleed: (2) Bilateral pulmonary embolism: PLAN: * Lower Gastrointestinal Bleeding and Anemia: Active lower GI bleeding of unknown etiology resulting in significant anemia. This condition directly prevents the safe, long-term use of therapeutic anticoagulation needed for managing her pulmonary emboli. * Pulmonary Embolism : Symptomatic PE with current small clot burden, partially responsive to brief anticoagulation but requiring definitive, ongoing therapy once bleeding source is addressed. * Inadequate Prior Workup: Previous colonoscopy attempt failed due to severe stool burden resulting from refusal of oral prep and use of only enemas, necessitating a repeat procedure. * Patient Refusal of Oral Prep: Primary barrier to diagnostic procedure is patient anxiety and refusal to consume standard oral bowel preparation solution. Plan: * I discussed the critical necessity of identifying the bleeding source via a successful colonoscopy. * Patient Education: I educated the patient on alternative, potentially more palatable, split-dose oral bowel preparation regimens (e.g., low-volume preparations, flavored options, [id number] methods) to increase compliance. I acknowledged her discomfort with the previous prep attempt and offer support and options. * Medical Management: Hold therapeutic anticoagulation while working up the GI bleed source. * Procedure Plan: * Goal: Schedule a repeat colonoscopy as soon as the patient agrees to and successfully completes a full bowel preparation. * Action: Re-educate patient on prep choices and obtain informed consent for the full regimen required for adequate visualization. Offer antiemetics to manage potential nausea during prep. * Follow-up: Re-evaluate patient readiness tomorrow morning to confirm agreement and ensure a successful bowel prep regimen is initiated today. Portions of this note were generated using voice recognition software ([email or web address] [email or web address]). I have reviewed the contents and every effort has been made to ensure accuracy; however, inadvertent errors in grammar, spelling, punctuation, or word choice may occur, that were not noted before signing the document and should not alter the intended clinical meaning. Visit Charges Inpatient E&M: 38659 Subs Hosp L3
[2025-05-06] MEDS: Polyethylene Glycol 3350 BOWEL PREP PO (14:11)
--- NOTE | 2025-05-06 14:17 | CASEMGMT ---
Social Work SW spoke with the patient and confirmed she plans back to [facility]. SW explained transportation back to [facility] will be set up for her when she discharges. JENNIFER Sears
[2025-05-06 19:31] LABS: Partial Thromboplast Time 73.0 Seconds (24.1-36.2)
[2025-05-07] VITALS (13 sets, daily range): BP systolic 118–163; BP diastolic 84–121; PULSE 116–129; RESP 18–26; TEMP 36.2–37.1; O2SAT 98–100
[2025-05-07 01:26] LABS: Partial Thromboplast Time 24.8 Seconds (24.1-36.2)
[2025-05-07] MEDS: 0.9% Saline Lock 10 ML Syringe IV ×2 (02:56→20:48)
[2025-05-07 07:21] LABS: Hematocrit 36.7 % (37-47); Hemoglobin 12.9 g/dL (12.0-15.0); Immature Granulocytes Count 0.030 X10^3/uL (0.0-0.0); Mean Corp Hgb Conc 35.1 g/dL (32-36); Mean Corpuscular Volume 83.4 fL (81-99); Mean Platelet Vol. 9.1 fl (6.2-12.0); NRBC Flagged by Analyzer 0 % (0-5); Platelet Count 353 K/mm3 (150-450); RBC Distribution Width CV 14.6 % (11.6-14.6); RBC Distribution Width SD 42.9 fl (35.1-43.9); Red Blood Count 4.40 M/mm3 (4.2-5.4); White Blood Count 6.4 K/mm3 (4.4-11.0)
[2025-05-07 07:38] LABS: Anion Gap 17 (5-15); BUN 7 mg/dL (4-19); BUN/Creat Ratio 29.6 RATIO (10-20); Calcium,Total 9.5 mg/dL (7.6-11.0); Carbon Dioxide 20.4 mmol/L (21.0-32.0); Chloride 95 mmol/L (98-108); Glucose 177 mg/dL (70-99); Potassium 3.8 mmol/L (3.3-5.1)
--- NOTE | 2025-05-07 08:25 | PCM.PN.HOSP ---
Reason for Visit Chief Complaint: Dyspnea, tachycardia. Subjective Subjective Case was discussed with Dr. Rice the day prior. Requested for repeat colonoscopy given patient repeat CT demonstrating the presence of a pulmonary embolism. Patient heparin had been reinitiated however GI recommended for the heparin to be held pending patient's endoscopic evaluation Objective Data Objective Data Vital Signs: Vital Signs Temp Pulse Resp BP Pulse Ox O2 Del Method 98.2 F 119 H 20 H 133/84 H 99 Room Air 05/07/25 02:36 05/07/25 02:54 05/07/25 02:36 05/07/25 03:25 05/07/25 02:36 05/07/25 08:13 Oxygen Delivery Method Room Air Weight: 79.4 kg Body Mass Index (BMI) 32.0 Intake & Output: Intake and Output for Last 24 Hours 05/05/25 05/06/25 05/07/25 23:59 23:59 23:59 Intake Total 0 / 0 1337.4 / 1337.4 Output Total 1400 / 1400 800 / 800 Balance -1400 / -1400 537.4 / 537.4 Lab / Micro Data 05/07/25 06:54 05/07/25 06:54 Labs: Laboratory Results - last 24 hr 05/06/25 09:24: POC Glucose 198 H 05/06/25 11:26: POC Glucose 185 H 05/06/25 11:37: WBC 6.7, RBC 4.52, Hgb 13.1, Hct 38.4, MCV 85.0, MCH 29.0, MCHC 34.1, RDW Std Deviation 43.1, RDW Coeff of Linda 14.6, Plt Count 373, MPV 9.2, Immature Gran % (Auto) 0.300, Neut % (Auto) 62.9, Lymph % (Auto) 24.9, [place] % (Auto) 9.3, Eos % (Auto) 1.8, Baso % (Auto) 0.8, Absolute Neuts (auto) 4.2, Absolute Lymphs (auto) 1.66, Nucleated RBC % 0, PT 13.7, INR 1.0, APTT 24.8 05/06/25 16:43: POC Glucose 195 H 05/06/25 18:47: APTT 73.0 H 05/06/25 22:07: POC Glucose 169 H 05/07/25 00:44: APTT 24.8 05/07/25 06:39: POC Glucose 179 H 05/07/25 06:54: WBC 6.4, RBC 4.40, Hgb 12.9, Hct 36.7 L, MCV 83.4, MCH 29.3, MCHC 35.1, RDW Std Deviation 42.9, RDW Coeff of [place] 14.6, Plt Count 353, MPV 9.1, Immature Gran % (Auto) 0.500, Neut % (Auto) 62.3, Lymph % (Auto) 24.6, [place] % (Auto) 10.4 H, Eos % (Auto) 1.4, Baso % (Auto) 0.8, Absolute Neuts (auto) 4.0, Absolute Lymphs (auto) 1.58, Nucleated RBC % 0, Sodium 132 L, Potassium 3.8, Chloride 95 L, Carbon Dioxide 20.4 L, Anion Gap 17 H, BUN 7, Creatinine 0.25 L, Estim Creat Clear Calc 321.12 H, Est GFR (MDRD) Non-Af 154, BUN/Creatinine Ratio 29.6 H, Glucose 177 H, Calcium 9.5 Micro: Microbiology 05/03/25 17:45 Urine Catheter - [facility] Urine Culture - Final Culture exhibits no growth. 05/03/25 17:14 Blood Culture (Wb) - Left Wrist Blood Culture - Preliminary No growth in 48 hours. 05/03/25 17:14 Blood Culture (Wb) - Right Wrist Blood Culture - Preliminary No growth in 48 hours. Radiography Diagnostic Testing: Radiology Impression Chest CTA 05/06/25 07:35 IMPRESSION: 1. Pulmonary embolus is present. The small amount of clot involving the segmental and subsegmental vessels right lower lobe is unchanged. Tiny, new focus in the left lower lobe. Overall clot burden is fairly small. No significant features of right ventricular strain at this time. 2. No new pulmonary infarct or consolidation. Linear atelectasis or scarring right lung base. 3. 5 mm noncalcified pulmonary nodule left lower lobe. No follow-up required in this 30-year-old patient unless there is a known primary. Reading Location: [facility] Physical Exam Narrative GENERAL: cooperative HEENT: Atraumatic; normocephalic EYES; Anicteric, Normal Conjunctiva NECK; supple, normal thyroid, RESPIRATORY: Diminished to auscultation CARDIOVASCULAR: Regular S1 S2, GI: soft, normoactive bowel sounds, : No Renal angle tenderness; EXTREMITIES: No edema, no clubbing, MUSCULOSKELETAL: no muscle wasting NEURO: Awake; no lateralizing signs. SKIN: No Rash PSYCH; Flat affect Assessment & Plan Assessment/Plan (1) Bilateral pulmonary embolism: PLAN: Plan Patient is a 30-year-old lady with multiple comorbidities resident at an extended care facility brought in with progressive generalized weakness and shortness of breath. Imaging studies obtained on admission demonstrated Few small segmental-subsegmental pulmonary arterial emboli. Small subpleural airspace opacity in the posterior right lung base may represent atelectasis versus a small pulmonary infarct. 1. Acute pulmonary embolism with suspected pulmonary infarct – Patient admitted to a monitored bed started on heparin drip 2D echo ordered ordered bilateral lower venous duplex to assess for possible IVC filter placement in case patient is not able to tolerate systemic anticoagulation – 05/05/2025; patient bilateral venous duplex negative for DVT. Patient was on heparin plan is to switch to DOAC 05/06/2025. Patient was started on apixaban however she did develop bleeding per rectum apixaban subsequently discontinued. Given the echo Finding on patient CTA repeat CT was ordered for further evaluation prior to committing patient to long-term systemic anticoagulation. Patient repeat CT demonstrated the pulmonary embolism being present. Patient subsequently started on heparin pending repeat endoscopic evaluation by GI – 05/07/2025 Case was discussed with Dr. Rice the day prior. Requested for repeat colonoscopy given patient repeat CT demonstrating the presence of a pulmonary embolism. Patient heparin had been reinitiated however GI recommended for the heparin to be held pending patient's endoscopic evaluation 2. Suspected lower GI bleed – Patient seen in consultation by GI plan is for patient to undergo endoscopic evaluation given the fact that patient may need to be on long-term systemic anticoagulation. – 05/05/2025;Patient colonoscopy performed the day prior was nondiagnostic given poor prep. Patient has however not had any recurrence of her GI bleed –05/07/2025; plan is for patient to undergo repeat colonoscopy. Did receive the prep the day prior 3. Diabetes mellitus type II -patient's oral hypoglycemics held. Placed on long acting insulin, Accu-Cheks a.c. and at bedtime and covered with sliding scale insulin 4. Mild intermittent asthma – Aerosol treatments as needed 5. Depression – Patient is on fluoxetine continue 6. Class I obesity with BMI of 31 – Complicating care weight loss advised 7. Hypertension – Blood pressure control not optimal with blood pressure 154/101 this a.m. adjusted home medications 8. Physical deconditioning – Requested for PT OT eval and social media job titles to assist with discharge planning – 05/05/2025; plan is for [facility] insurance approval Time spent in the patient's overall evaluation,decision-making process, review of diagnostic data, adjustment of management, discussion with other providers, nursing nursing and ancillary staff involved in patient's care documentation, 36 Minutes Charges/Coding Visit Charges Inpatient E&M: 20800 Subs Hosp L2
--- NOTE | 2025-05-07 12:01 | PCM.PRE.AN2 ---
ASA Classification* ASA Classification ASA Classification: 3 and E Assessment & Plan Anesthesia* Anesthesia Assessment Anesthesia Assessment: Discussed sedation and/or anesthesia options, risks, benefits, and alternatives with patient/parents/legal guardian/POA. Questions invited. The patient/parents/legal guardian/POA seems to understand and agrees to proceed with anesthesia plan. Reviewed the physical assessment, medical history, allergy history and patient home medications list prior to surgery/procedure/anesthetic and documented any changes. Performed airway and anesthesia risk assessments. Anesthesia Type Anesthesia Type: MAC Anesthesia Focused Assessment* Temperature: 97.7 F Pulse Rate: 128 Blood Pressure: 144/92 Respiratory Rate: 18 Pulse Ox: 100 Airway Assessment Mouth opens: >3 cm Mallampati Score: II Labs Anesthesia Preop lab: CBC WBC, (4.4-11.0) 6.4 K/mm3 Today, 06:54 RBC, (4.2-5.4) 4.40 M/mm3 Today, 06:54 Hgb, (12.0-15.0) 12.9 g/dL Today, 06:54 Hct, (37-47) 36.7 % L Today, 06:54 Plt Count, (150-450) 353 K/mm3 Today, 06:54 CHEMISTRY Potassium, (3.3-5.1) 3.8 mmol/L Today, 06:54 Sodium, (133-145) 132 mmol/L L Today, 06:54 Magnesium, (1.5-2.2) 2.0 mg/dL 05/05/25, 04:37 Phosphorus, (2.7-4.5) 3.8 mg/dL 05/05/25, 04:37 BUN, (4-19) 7 mg/dL Today, 06:54 Creatinine, (0.70-1.20) 0.25 mg/dL L Today, 06:54 Glucose, (70-99) 177 mg/dL H Today, 06:54 POC Glucose, (74-106) 208 mg/dL H Today, 11:32 TSH, (0.300-4.200) 1.130 uIU/mL 05/03/25, 04:25 COAG PT, (11.7-14.9) 13.7 SECONDS 05/06/25, 11:37 HCG, Quant, (1-3) < 1 mIU/mL 09/01/19, 15:49 Urine Test Positive Negative H 01/23/18, 08:06 Pre-Assessment Diagnosis/Proposed Procedure Planned Operative Procedure(s): colonoscopy as per GI team Anesthesia History 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 When Was Last Pacemaker Check QUESTION #4 FULL TEXT: You/Your Family Experience fever (hyperthermia) with Anesthesia Last Oral Intake Last Oral intake: Last Oral Intake NPO since Meds taken in AM with sips of water? Meds patient instructed to take am of surgery PONV PONV - postal service clerk: PONV - postal service clerk Female HX of Motion Sickness HX of N/V After Surgery Non-Smoker Duration of Surgery greater than 60 minutes Number of Risk Factors PONV Score Height & Weight Height & Weight: Anesthesia: Height & Weight Height 5 ft 2 in 05/06/25 10:38 Weight: 79.4 kg 05/06/25 23:36 Body Mass Index (BMI) 32.0 05/06/25 23:36 Respiratory Assessment Respiratory Assessment - postal service clerk: Respiratory Tract Infection Hx - postal service clerk Hx Respiratory Tract Infection No 01/21/25 13:27 STOP Sleep Apnea STOP Sleep Apnea - postal service clerk: STOP Sleep Apnea - postal service clerk Hx Hypertension No 05/05/25 10:22 Hx Sleep Apnea No 05/04/25 17:05 CPAP BIPAP Do you snore loudly (louder No 05/03/25 20:51 than talking or can be heard Do you often feel tired/ Yes 05/03/25 20:51 fatigued/ sleepy during daytime? Has anyone observed you stop No 05/03/25 20:51 breathing during sleep? STOP Results Negative 05/03/25 20:51 QUESTION #5 FULL TEXT : Do you snore loudly (louder than talking or can be heard through closed doors)? 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 Specify any problems Hx of Preganancy in last 3 No 05/03/25 20:51 Months Nurse Filling Out Transfusion AFLICKING 05/03/25 20:51 & Questions: Date: 05/03/25 05/03/25 20:51 Time: 21:00 05/03/25 20:51 Patient unable to answer at this time (ie. confused, unrespo /Reproduction History /Reproductive History - postal service clerk: /Reproductive Hx- postal service clerk Hx Now No 05/03/25 20:51 Gestational Age (in weeks): EDC: Hx Hx Para Hx Section SAB No 05/03/25 20:51 Does the father of the baby or his family experience fever w Father of the baby Malignant Hypertension history comment Active Medications Active Medications: Current Medications Generic Name Dose Route Start Last Admin Trade Name Freq PRN Reason Stop Dose Admin Acetaminophen 650 mg 05/03/25 20:51 05/05/25 21:42 Acetaminophen 325 Mg Tablet PO 650 mg Q4H PRN PRN Administration Fever, pain 1-03/18 Al Hydroxide/Mg Hydroxide 30 ml 05/03/25 20:51 Mag Hydrox/Al Hydrox/Simeth 30 Ml Udc PO Q6H PRN PRN Gastric Burning Albuterol Sulfate 2.5 mg 05/03/25 20:51 Albuterol 2.5 Mg/3 Ml Vial.Neb. INHALATION Q2H PRN PRN Dyspnea, wheezing Calamine/Phenol 1 applic 05/03/25 22:00 05/07/25 08:18 Menthol/Lanolin/Calamine/Znox 113 Gm Tube TOPICAL 1 applic BID JUSTIN Administration Protocol Fluoxetine HCl 20 mg 05/04/25 10:00 05/06/25 09:33 Fluoxetine 20 Mg Capsule PO 20 mg DAILY JUSTIN Administration Glucagon 1 mg 05/04/25 09:42 Glucagon 1 Mg/Ml Syringe IM X1 PRN Hypoglycemia Protocol Guaifenesin 20 ml 05/03/25 20:51 Guaifenesin 10 Ml Udc (200mg/10ml) PO Q4H PRN PRN COUGH Heparin Sodium (Porcine) 0 unit 05/06/25 11:11 Heparin Nomogram Adjustment 5,000 Unit/Ml Vial IV UD PRN Dose Adjustment Protocol Hydralazine HCl 10 mg 05/03/25 20:51 05/07/25 02:54 Hydralazine 20 Mg/Ml Vial IV 10 mg Q4H PRN PRN Administration SBP > 160 Protocol Sodium Chloride 250 mls @ 15 mls/hr 05/03/25 20:55 IV .[id number] PRN Saline Flush Sodium Chloride 250 mls @ 15 mls/hr 05/03/25 20:55 IV .[id number] PRN Additional IVPB Infusion Dextrose 250 mls @ 0 mls/hr 05/04/25 09:42 Dextrose 10%-Water IV .Q0M PRN HYPOGLYCEMIA Protocol As Directed Lactated Ringer's 1,000 mls @ 15 mls/hr 05/04/25 14:45 05/07/25 11:19 IV Infused .Q48H JUSTIN Infusion Sodium Chloride 250 mls @ 15 mls/hr 05/04/25 20:35 IV .[id number] PRN Saline Flush Sodium Chloride 250 mls @ 15 mls/hr 05/04/25 20:35 IV .[id number] PRN Additional IVPB Infusion Heparin Sodium/Dextrose 25,000 units in 250 mls @ 12.015 mls/hr 05/06/25 11:15 05/06/25 20:33 CONT INF 0 unit/kg/hr .[id number] JUSTIN 0 mls/hr Protocol Titration 15 UNIT/KG/HR Insulin Glargine 10 unit 05/04/25 10:00 05/07/25 08:09 Insulin Glargine-Yfgn 100 Unit/Ml Pen SC Not Given BID JUSTIN Insulin Human Lispro 5 unit 05/04/25 07:00 05/07/25 08:08 Insulin Lispro 100 Unit/Ml Insuln.Pen SC Not Given TIDAC JUSTIN Insulin Human Lispro 0 unit 05/03/25 22:00 05/07/25 08:09 Insulin Lispro 100 Unit/Ml Insuln.Pen SC Not Given ACHS JUSTIN Protocol Melatonin 3 mg 05/03/25 20:51 Melatonin 3 Mg Tablet PO QHS PRN PRN INSOMNIA Metoprolol Tartrate 25 mg 05/04/25 03:50 05/06/25 22:05 Metoprolol Tartrate 25 Mg Tablet PO 25 mg BID JUSTIN Administration Protocol Nutritional Formula (Lactose Free) 120 ml 05/04/25 08:00 05/07/25 11:19 Glucerna Shake 120 Ml Liquid PO Not Given TIDCM JUSTIN Senna/Docusate Sodium 2 tablet 05/03/25 20:51 Senna/Docusate Sodium 1 Tablet PO BID PRN PRN Constipation Sodium Chloride 10 - 40 ml 05/03/25 20:55 05/07/25 02:56 0.9% Saline Lock 10 Ml Syringe IV 10 ml UD PRN Administration SALINE FLUSH Sodium Chloride 10 - 40 ml 05/04/25 20:35 0.9% Saline Lock 10 Ml Syringe IV UD PRN SALINE FLUSH Tizanidine HCl 2 mg 05/04/25 01:53 05/04/25 02:36 Tizanidine Hcl 2 Mg Tablet PO 2 mg Q8H PRN PRN Administration spasms PFSH Medical History Anxiety and depression Former smoker Wears dentures Wears glasses Bipolar disorder Gastric reflux Insulin dependent diabetes mellitus Asthma Osteoarthritis Diabetes Home Medications Medication Instructions Recorded Last Taken Type fluoxetine 20 mg capsule 20 mg PO DAILY anxiety 11/15/24 12/16/24 History glipizide 5 mg tablet 5 mg PO BID dm 04/20/25 Unknown History metformin 500 mg tablet 500 mg PO BID dm 04/20/25 Unknown History insulin glargine-yfgn 100 unit/mL 10 unit (0.1 mL) subcut BID #0 mL 04/26/25 Unknown Rx (3 mL) subcutaneous pen insulin lispro 100 unit/mL 5 unit (0.05 mL) subcut TIDAC #0 mL 04/26/25 Unknown Rx subcutaneous pen (Humalog KwikPen (U-100) Insulin) melatonin 5 mg capsule 5 mg PO QHS 05/03/25 Unknown History metoprolol tartrate 25 mg tablet 25 mg PO BID 05/04/25 Unknown History Allergy/AdvReac Type Severity Reaction Status Date / Time aripiprazole (From Abilify) AdvReac Other Verified 05/03/25 17:05 metoclopramide (From Reglan) AdvReac Other Verified 05/03/25 17:05 ondansetron (From Zofran) AdvReac Vomiting Verified 05/03/25 17:05 quetiapine (From Seroquel) AdvReac Other Verified 05/03/25 17:05 sertraline (From Zoloft) AdvReac Other Verified 05/03/25 17:05 Family History Father Heart disease Hyperlipemia Mother COPD (chronic obstructive pulmonary disease) Surgical History History of dilation and curettage History of oral surgery History of cholecystectomy Social History household members: none housing: care home number of children: 2 service: No current occupational status: disabled Smoking Status: Former smoker alcohol intake: never substance use type: does not use Review of Systems (Anesthesia) ROS Narrative System reviewed and no additional complaints, except as documented.
[2025-05-07 12:30] LABS: Internal QC Validated? YES +Cl - CLEAR BKGD; Pregnancy, Urine Negative Negative; Record Kit Lot#,Urine Preg 980607
--- NOTE | 2025-05-07 12:36 | PN_ITS ---
Progress Note The patient took prep overnight and has been NPO Physical Exam Narrative GENERAL: cooperative HEENT: Atraumatic; normocephalic EYES; Anicteric, Normal Conjunctiva NECK; supple, normal thyroid, RESPIRATORY: Diminished to auscultation CARDIOVASCULAR: Regular S1 S2, GI: soft, normoactive bowel sounds, : No Renal angle tenderness; EXTREMITIES: No edema, no clubbing, MUSCULOSKELETAL: no muscle wasting NEURO: Awake; no lateralizing signs. SKIN: No Rash PSYCH; Flat affect Assessment & Plan Assessment/Plan (1) GI bleed: (2) Bilateral pulmonary embolism: PLAN: * Lower Gastrointestinal Bleeding and Anemia: Active lower GI bleeding of unknown etiology resulting in significant anemia. This condition directly prevents the safe, long-term use of therapeutic anticoagulation needed for managing her pulmonary emboli. * Pulmonary Embolism : Symptomatic PE with current small clot burden, partially responsive to brief anticoagulation but requiring definitive, ongoing therapy once bleeding source is addressed. * Inadequate Prior Workup: Previous colonoscopy attempt failed due to severe stool burden resulting from refusal of oral prep and use of only enemas, necessitating a repeat procedure. * Patient Refusal of Oral Prep: Primary barrier to diagnostic procedure is patient anxiety and refusal to consume standard oral bowel preparation solution. Plan: * I discussed the critical necessity of identifying the bleeding source via a successful colonoscopy. * Patient Education: I educated the patient on alternative, potentially more palatable, split-dose oral bowel preparation regimens (e.g., low-volume preparations, flavored options, [id number] methods) to increase compliance. I acknowledged her discomfort with the previous prep attempt and offer support and options. * Medical Management: Hold therapeutic anticoagulation while working up the GI bleed source. * Procedure Plan: * Goal: Schedule a repeat colonoscopy as soon as the patient agrees to and successfully completes a full bowel preparation. * Action: Re-educate patient on prep choices and obtain informed consent for the full regimen required for adequate visualization. Offer antiemetics to manage potential nausea during prep. * Follow-up: Re-evaluate patient readiness tomorrow morning to confirm agreement and ensure a successful bowel prep regimen is initiated today. Portions of this note were generated using voice recognition software (Sunshine[employer]). I have reviewed the contents and every effort has been made to ensure accuracy; however, inadvertent errors in grammar, spelling, punctuation, or word choice may occur, that were not noted before signing the document and should not alter the intended clinical meaning. Visit Charges Inpatient E&M: 88543 Subs Hosp L3
[2025-05-07] MEDS: Lactated Ringers 1,000 ML 15 ML IV (12:37)
--- NOTE | 2025-05-07 12:50 | COLBX_PTH ---
PATIENT: AUTUMN KING LOC: [facility] U#:[id number] AGE/SX: 30/F ROOM: [facility] RE05/04/[address]: Dr. Vance Blanco MD : 1995 BED: 1 DIS: 05/08/2025 SPEC #: [id number] RECD: 05/09/25 06:54 STATUS: TAYO REEmanuel #: [id number] JACK: 05/07/25 12:[address]: Abad Rice DEPT: SURGICAL PATHOLOGY RECD BY: Thor Duenas ENTERED: 05/09/25 09:15 SP TYPE: COLON BX OTHR DR: MD Dr. Vance De La Cruz MD Dr. Jyothi Gudla, MD Dr. Prakash Chand, MD Heather Evans, NP-C Krys Farley NP-C BUDDY Gee Tissues: A - Rectum, NOS Procedures: Immunohistochemical Stains Surgery Specimen Level IV Comments: Spoke to Nurse Radha and informed her about positive staining for CMV. She will then inform Dr. Rice. 05/11/25 at 10:23am HEADER OPERATION: Colonoscopy with biopsy and cauterization PRE-OP DIAGNOSIS: GI bleed, bilateral pulmonary embolism TISSUE SUBMITTED: A- Rectum biopsy MICROSCOPIC DIAGNOSIS A. Rectum, biopsy: - Severely active chronic inflammation with ulceration - see note. - No granulomas or dysplasia seen. - IHC for CMV is pending and will be reported in an addendum. Note: The histologic differential diagnosis includes infection, inflammatory bowel disease, and diverticular disease-associated colitis/proctitis. Recommend correlation with clinical, endoscopic, and imaging findings. MICROSCOPIC DESCRIPTION Slides are reviewed. All matched controls reacted appropriately. These tests were developed and their performance characteristics determined by [facility]. They may not have been cleared or approved by the U.S. Food and Drug Administration. The FDA has determined that such clearance or approval is not necessary. The above immunohistochemical markers are viewed by the Pathologist. GROSS DESCRIPTION A. Received in fixative is one container labeled with the patient's name and designated "Rectum biopsy." The specimen consists of multiple irregular fragments of byrnes tissue that in aggregate measure 1.3 x 0.3 x 0.1 cm. The specimen is totally submitted in one cassette. LA 05/09/2025 CPT:[id number] ADDENDUM ADDENDUM ADDENDUM ADDENDUM ADDENDUM 05/11/2025 10:16 ADDENDUM 05/11/2025 10:16 ADDENDUM 05/11/2025 10:16 ADDENDUM 05/11/2025 10:16 ADDENDUM 05/11/2025 10:16 This addendum is to report the IHC for CMV: A. IHC for CMV (cytomegalovirus) is POSITIVE. Dr Rice's office was informed of this addendum report 05/11/25 (Gardenia ceron).
[2025-05-07] MEDS: Lidocaine 1% (5 ml sdv) 5 ML Vial 2 ML IV (13:03)
--- NOTE | 2025-05-07 13:33 | PCM.POST.ANE ---
Anesthesia: Postop Eval I Current Vital Signs Temperature: 97.2 F Pulse Rate: 129 Blood Pressure: 138/100 Respiratory Rate: 26 Pulse Ox: 100 Oxygen Delivery Method: Room Air Assessment Airway patent: Yes Spontaneous unlabored respirations: Yes Mental status: Awake nausea: No Vomiting: No Anesthesia Complication: No Fluid Hydration Crystalloid volume administer (ml): 100 Total IV fluid infused: 100 Progress Note Anesthesia document: Postop Eval 1 completed: Yes
--- NOTE | 2025-05-07 13:35 | PCM.POSTANE2 ---
Anesthesia Postop Eval I Sum Postop Eval Completion status Anesthesia document: Postop Eval 1 completed: Yes Anesthesia Postop Eval I Summary Anesthesia Postop Eval I Summary: Anesthesia Postop Eval I: Assessment Summary Airway patent Yes 05/07/25 13:34 Spontaneous unlabored Yes 05/07/25 13:34 respirations Mental status Awake 05/07/25 13:34 nausea No 05/07/25 13:34 Vomiting No 05/07/25 13:34 Anesthesia Postop Eval I: Fluid Summary Crystalloid volume administer 100 05/07/25 13:34 (ml) Colloids volume administered ( ml) Blood Product volume administered (ml) Total IV fluid infused 100 05/07/25 13:34 Anesthesia Postop Eval I: Summary Notes Anesthesia Complication No 05/07/25 13:34 Anesthesia Complication Comment: Post-operative progress note Anesthesia: Postop Eval II Evaluation Mental status: Awake Pain Level: 0 nausea: No Vomiting: No
--- NOTE | 2025-05-07 13:39 | OP.PROVAT_ITS ---
05/07/2025 Rivka Carmona Md Re : Colonoscopy procedure for Melissa Byrne Dear Dr. Carmona This procedure was performed on Wednesday, May 07, 2025. My impressions and recommendations are as follows: Impressions : - Stool in the entire examined colon. - Mucosal ulceration. Biopsied. Treated with argon plasma coagulation (APC). Recommendations : - Return patient to [facility] for ongoing care. - Resume regular diet. - Continue present medications. - Await pathology results. -Check IBD SGI, ANCA antibody, ESR, CRP, NICOLE comprehensive -Methylprednisolone 125 mg IV x 1 and transition to prednisone 40 mg a day with a long taper over 8 weeks -It is okay to restart anticoagulation tomorrow - Mesalamine 1 g twice daily per rectum - Metamucil twice a day - Repeat colonoscopy in 6 months because the bowel preparation was poor. My findings are described in the full procedure note, which is enclosed. If I can be of further assistance, please feel free to contact me at . Sincerely, Abad Rice, 05/07/2025 1:38:04 PM This report has been signed electronically.
--- NOTE | 2025-05-07 13:39 | OP.COLON_ITS ---
Patient Name: Melissa Byrne Procedure Date: 05/07/2025 12:43 PM Date of : 1995 Age: 30 Procedure: Colonoscopy Indications: Hematochezia Providers: DO Rylee Hodges MD: Vance Blanco Medicines: Monitored Anesthesia Care Patient Profile: This is a 30 year old female. Refer to note in patient chart for documentation of history and physical. Last Colonoscopy: none. The patient's first colonoscopy is today. Complications: No immediate complications. Procedure: Pre-Anesthesia Assessment: - Prior to the procedure, a History and Physical was performed, and patient medications and allergies were reviewed. The patient is competent. The risks and benefits of the procedure and the sedation options and risks were discussed with the patient. All questions were answered and informed consent was obtained. Patient identification and proposed procedure were verified by the physician in the pre-procedure area. Mental Status Examination: alert and oriented. Airway Examination: normal oropharyngeal airway and neck mobility. Respiratory Examination: clear to auscultation. CV Examination: normal. Prophylactic Antibiotics: The patient does not require prophylactic antibiotics. Prior Anticoagulants: The patient has taken no anticoagulant or antiplatelet agents. ASA Grade Assessment: II - A patient with mild systemic disease. After reviewing the risks and benefits, the patient was deemed in satisfactory condition to undergo the procedure. The anesthesia plan was to use monitored anesthesia care (MAC). Immediately prior to administration of medications, the patient was re-assessed for adequacy to receive sedatives. The heart rate, respiratory rate, oxygen saturations, blood pressure, adequacy of pulmonary ventilation, and response to care were monitored throughout the procedure. The physical status of the patient was re-assessed after the procedure. After I obtained informed consent, the scope was passed under direct vision. Throughout the procedure, the patient's blood pressure, pulse, and oxygen saturations were monitored continuously. The colonoscope was introduced through the anus and advanced to the cecum, identified by appendiceal orifice and ileocecal valve. The colonoscopy was performed without difficulty. The patient tolerated the procedure well. Scope In: 12:55:41 PM Scope Withdrawal Time 0 hours 21 minutes 45 seconds Scope Out: 1:20:07 PM Total Procedure Duration Time 0 hours 24 minutes 26 seconds Findings: The perianal and digital rectal examinations were normal. A large amount of stool was found in the entire colon. Lavage of the area was performed using greater than 500 mL of sterile water, resulting in incomplete clearance with continued poor visualization. Discontinuous areas of bleeding ulcerated mucosa with stigmata of recent bleeding were present in the rectum. Biopsies were taken with a cold forceps for histology. Coagulation for hemostasis using argon plasma at 0.3 liters/minute and 30 cole was successful. Estimated blood loss was minimal. Impression: - Stool in the entire examined colon. - Mucosal ulceration. Biopsied. Treated with argon plasma coagulation (APC). Recommendation: - Return patient to [facility] for ongoing care. - Resume regular diet. - Continue present medications. - Await pathology results. -Check IBD SGI, ANCA antibody, ESR, CRP, NICOLE comprehensive -Methylprednisolone 125 mg IV x 1 and transition to prednisone 40 mg a day with a long taper over 8 weeks -It is okay to restart anticoagulation tomorrow - Mesalamine 1 g twice daily per rectum - Metamucil twice a day - Repeat colonoscopy in 6 months because the bowel preparation was poor. Procedure Code(s): --- Professional --- 75741, Colonoscopy, flexible; with control of bleeding, any method CPT copyright 2021 [employer]. All rights reserved. The codes documented in this report are preliminary and upon pearl diver review may be revised to meet current compliance requirements. Abad Rice DO 05/07/2025 1:38:04 PM This report has been signed electronically. Number of Addenda: 0 Note Initiated On: 05/07/2025 12:43 PM
[2025-05-07 14:14] LABS: CRP 6.88 mg/L (0.0-3.0)
[2025-05-07] MEDS: Polyethylene Glycol 3350 17 GM PACKET PO (14:24)
[2025-05-07] MEDS: Psyllium 1 PACKET PO (14:24)
[2025-05-08 02:25] VITALS: BP 133/89; PULSE 110; RESP 18; TEMP 36.4; O2SAT 97
[2025-05-08 04:10] VITALS: BMI 31.0
--- NOTE | 2025-05-08 07:32 | PN.HOSP_ITS ---
Reason for Visit Chief Complaint: Dyspnea, tachycardia. Subjective Subjective Patient underwent colonoscopy the day prior findings included stool in the entire examined colon. - Mucosal ulceration. Biopsied. Treated with argon plasma coagulation (APC). Plan is for patient to be started on systemic anticoagulation. Patient was also prescribed mesalamine 1 g twice daily. Metamucil twice daily Objective Data Objective Data Vital Signs: Vital Signs Temp Pulse Resp BP Pulse Ox O2 Del Method 97.5 F L 110 H 18 133/89 H 97 Room Air 05/08/25 02:25 05/08/25 02:25 05/08/25 02:25 05/08/25 02:25 05/08/25 02:25 05/08/25 02:25 Oxygen Delivery Method Room Air Weight: 77 kg Body Mass Index (BMI) 31.0 Intake & Output: Intake and Output for Last 24 Hours 05/06/25 05/07/25 05/08/25 23:59 23:59 23:59 Intake Total 1337.4 / 1337.4 1120 / 1120 Output Total 800 / 800 350 / 1000 650 / 650 Balance 537.4 / 537.4 770 / 120 -650 / -650 Lab / Micro Data 05/07/25 06:54 05/07/25 06:54 Labs: Laboratory Results - last 24 hr 05/07/25 05:45: C-React Prot Ext Range 6.88 H 05/07/25 06:54: ESR 36 H, Sodium 132 L, Potassium 3.8, Chloride 95 L, Carbon Dioxide 20.4 L, Anion Gap 17 H, BUN 7, Creatinine 0.25 L, Estim Creat Clear Calc 321.12 H, Est GFR (MDRD) Non-Af 154, BUN/Creatinine Ratio 29.6 H, Glucose 177 H, Calcium 9.5, JAYRO-1 Antibody TNP, Scl-70 Scleroderma Ab TNP, Antichromatin Antibodies TNP, Centromere B Antibody TNP 05/07/25 11:32: POC Glucose 208 H 05/07/25 12:00: Urine Test Negative 05/07/25 17:36: POC Glucose 193 H 05/07/25 20:43: POC Glucose 183 H Micro: Microbiology 05/03/25 17:45 Urine Catheter - [facility] Urine Culture - Final Culture exhibits no growth. 05/03/25 17:14 Blood Culture (Wb) - Left Wrist Blood Culture - Preliminary No growth in 48 hours. 05/03/25 17:14 Blood Culture (Wb) - Right Wrist Blood Culture - Preliminary No growth in 48 hours. Physical Exam Narrative GENERAL: cooperative HEENT: Atraumatic; normocephalic EYES; Anicteric, Normal Conjunctiva NECK; supple, normal thyroid, RESPIRATORY: Diminished to auscultation CARDIOVASCULAR: Regular S1 S2, GI: soft, normoactive bowel sounds, : No Renal angle tenderness; EXTREMITIES: No edema, no clubbing, MUSCULOSKELETAL: no muscle wasting NEURO: Awake; no lateralizing signs. SKIN: No Rash PSYCH; Flat affect Assessment & Plan Assessment/Plan (1) Bilateral pulmonary embolism: PLAN: Plan Patient is a 30-year-old lady with multiple comorbidities resident at an extended care facility brought in with progressive generalized weakness and shortness of breath. Imaging studies obtained on admission demonstrated Few small segmental-subsegmental pulmonary arterial emboli. Small subpleural airspace opacity in the posterior right lung base may represent atelectasis versus a small pulmonary infarct. 1. Acute pulmonary embolism with suspected pulmonary infarct – Patient admitted to a monitored bed started on heparin drip 2D echo ordered ordered bilateral lower venous duplex to assess for possible IVC filter placement in case patient is not able to tolerate systemic anticoagulation – 05/05/2025; patient bilateral venous duplex negative for DVT. Patient was on heparin plan is to switch to DOAC 05/06/2025. Patient was started on apixaban however she did develop bleeding per rectum apixaban subsequently discontinued. Given the echo Finding on patient CTA repeat CT was ordered for further evaluation prior to committing patient to long-term systemic anticoagulation. Patient repeat CT demonstrated the pulmonary embolism being present. Patient subsequently started on heparin pending repeat endoscopic evaluation by GI – 05/07/2025 Case was discussed with Dr. Rice the day prior. Requested for repeat colonoscopy given patient repeat CT demonstrating the presence of a pulmonary embolism. Patient heparin had been reinitiated however GI recommended for the heparin to be held pending patient's endoscopic evaluation – 05/08/2025; patient underwent colonoscopy the day prior. Patient started on apixaban starting this a.m. 2. Suspected lower GI bleed – Patient seen in consultation by GI plan is for patient to undergo endoscopic evaluation given the fact that patient may need to be on long-term systemic anticoagulation. – 05/05/2025;Patient colonoscopy performed the day prior was nondiagnostic given poor prep. Patient has however not had any recurrence of her GI bleed –05/07/2025; plan is for patient to undergo repeat colonoscopy. Did receive the prep the day prior - 05/08/2025;Patient underwent colonoscopy the day prior findings included stool in the entire examined colon. - Mucosal ulceration. Biopsied. Treated with argon plasma coagulation (APC). Plan is for patient to be started on systemic anticoagulation. Patient was also prescribed mesalamine 1 g twice daily. Metamucil twice daily 3. Diabetes mellitus type II -patient's oral hypoglycemics held. Placed on long acting insulin, Accu-Cheks a.c. and at bedtime and covered with sliding scale insulin 4. Mild intermittent asthma – Aerosol treatments as needed 5. Depression – Patient is on fluoxetine continue 6. Class I obesity with BMI of 31 – Complicating care weight loss advised 7. Hypertension – Blood pressure control not optimal with blood pressure 154/101 this a.m. adjusted home medications 8. Physical deconditioning – Requested for PT OT eval and social service director to assist with discharge planning – 05/05/2025; plan is for patient to be discharged back to [facility] pending insurance approval Time spent in the patient's overall evaluation,decision-making process, review of diagnostic data, adjustment of management, discussion with other providers, nursing nursing and ancillary staff involved in patient's care documentation, 35 Minutes Charges/Coding Visit Charges Inpatient E&M: 77948 Subs Hosp L2
[2025-05-08 08:25] VITALS: BP 122/96; PULSE 125; RESP 18; TEMP 36.4; O2SAT 97
--- NOTE | 2025-05-08 08:47 | DS.PCM_ITS ---
Providers Date of Admission: 05/04/25 Date of Discharge: 05/08/25 Primary Care Physician: Dr. Rivka Carmona MD Consultations 05/04/25 01:54 Consult: Gastroenterology Routine Consulting Provider: [facility] Reason for Consult: rectal bleeding EMERGENT Consult: No Notified: Yes Date Notified: 05/04/25 Time Notified: 05:53 Method of Notification: Text Reason For Visit: BILATERAL PULMONARY EMBOLI Diagnosis Discharge Diagnosis (1) Bilateral pulmonary embolism: Status: Acute Code(s): I26.99 - Other pulmonary embolism without acute cor pulmonale Plan Patient is a 30-year-old lady with multiple comorbidities resident at an extended care facility brought in with progressive generalized weakness and shortness of breath. Imaging studies obtained on admission demonstrated Few small segmental-subsegmental pulmonary arterial emboli. Small subpleural airspace opacity in the posterior right lung base may represent atelectasis versus a small pulmonary infarct. 1. Acute pulmonary embolism with suspected pulmonary infarct – Patient admitted to a monitored bed started on heparin drip 2D echo ordered ordered bilateral lower venous duplex to assess for possible IVC filter placement in case patient is not able to tolerate systemic anticoagulation – 05/05/2025; patient bilateral venous duplex negative for DVT. Patient was on heparin plan is to switch to DOAC 05/06/2025. Patient was started on apixaban however she did develop bleeding per rectum apixaban subsequently discontinued. Given the echo Finding on patient CTA repeat CT was ordered for further evaluation prior to committing patient to long-term systemic anticoagulation. Patient repeat CT demonstrated the pulmonary embolism being present. Patient subsequently started on heparin pending repeat endoscopic evaluation by GI – 05/07/2025 Case was discussed with Dr. Rice the day prior. Requested for repeat colonoscopy given patient repeat CT demonstrating the presence of a pulmonary embolism. Patient heparin had been reinitiated however GI recommended for the heparin to be held pending patient's endoscopic evaluation – 05/08/2025; patient underwent colonoscopy the day prior. Patient started on apixaban starting this a.m. 2. Suspected lower GI bleed – Patient seen in consultation by GI plan is for patient to undergo endoscopic evaluation given the fact that patient may need to be on long-term systemic anticoagulation. – 05/05/2025;Patient colonoscopy performed the day prior was nondiagnostic given poor prep. Patient has however not had any recurrence of her GI bleed –05/07/2025; plan is for patient to undergo repeat colonoscopy. Did receive the prep the day prior - 05/08/2025;Patient underwent colonoscopy the day prior findings included stool in the entire examined colon. - Mucosal ulceration. Biopsied. Treated with argon plasma coagulation (APC). Plan is for patient to be started on systemic anticoagulation. Patient was also prescribed mesalamine 1 g twice daily. Metamucil twice daily 3. Diabetes mellitus type II -patient's oral hypoglycemics held. Placed on long acting insulin, Accu-Cheks a.c. and at bedtime and covered with sliding scale insulin 4. Mild intermittent asthma – Aerosol treatments as needed 5. Depression – Patient is on fluoxetine continue 6. Class I obesity with BMI of 31 – Complicating care weight loss advised 7. Hypertension – Blood pressure control not optimal with blood pressure 154/101 this a.m. adjusted home medications 8. Physical deconditioning – Requested for PT OT eval and social sciences research scientist to assist with discharge planning – 05/05/2025; plan is for patient to be discharged back to [facility] pending insurance approval Time spent in the patient's overall evaluation,decision-making process, review of diagnostic data, adjustment of management, discussion with other providers, nursing nursing and ancillary staff involved in patient's care documentation, 35 Minutes Medications at Discharge Home Medications fluoxetine 20 mg capsule 20 mg PO DAILY anxiety 11/15/24 glipizide 5 mg tablet 5 mg PO BID dm 04/20/25 metformin 500 mg tablet 500 mg PO BID dm 04/20/25 insulin glargine-yfgn 100 unit/mL (3 mL) subcutaneous pen 10 unit (0.1 mL) subcut BID #0 mL 04/26/25 insulin lispro 100 unit/mL subcutaneous pen (Humalog KwikPen (U-100) Insulin) 5 unit (0.05 mL) subcut TIDAC #0 mL 04/26/25 melatonin 5 mg capsule 5 mg PO QHS 05/03/25 metoprolol tartrate 25 mg tablet 25 mg PO BID 05/04/25 acetaminophen 325 mg tablet 650 mg (2 x 325 mg) PO Q4H PRN PRN Fever, pain - 03/18 #0 tabs 05/08/25 albuterol sulfate 2.5 mg/3 mL (0.083 %) solution for nebulization 2.5 mg (3 mL) inhalation Q2H PRN PRN Dyspnea, wheezing #0 mL 05/08/25 aluminum-mag hydroxide-simethicone 400 mg-400 mg-40 mg/5 mL oral susp (Mag-Al Plus Extra Strength) 30 ml PO Q6H PRN PRN Gastric Burning #0 mL 05/08/25 apixaban 5 mg tablet (Eliquis) 5 mg PO BID #0 tabs 05/08/25 mesalamine 4 gram/60 mL enema 4 g (60 mL) MD DAILY #0 mL 05/08/25 nutrition tx glu intol,lac-free,soy-fiber 0.06 gram-1.2 kcal/mL liquid (Glucerna 1.2 Vivek) 120 ml PO TIDCM #0 mL 05/08/25 pantoprazole 40 mg tablet,delayed release (Protonix) 40 mg PO DAILY #60 tabs 05/08/25 prednisone 10 mg tablet See Rx Instructions .Route .COMPLEX #90 tabs 05/08/25 psyllium husk 3 gram oral powder packet (Daily Fiber (psyllium-aspartame)) 1 packet PO DAILY #0 ea 05/08/25 Physical Exam Narrative GENERAL: cooperative HEENT: Atraumatic; normocephalic EYES; Anicteric, Normal Conjunctiva NECK; supple, normal thyroid, RESPIRATORY: Diminished to auscultation CARDIOVASCULAR: Regular S1 S2, GI: soft, normoactive bowel sounds, : No Renal angle tenderness; EXTREMITIES: No edema, no clubbing, MUSCULOSKELETAL: no muscle wasting NEURO: Awake; no lateralizing signs. SKIN: No Rash PSYCH; Flat affect Weight / BMI Weight Weight: 77 kg Body Mass Index (BMI) 31.0 ABG / Lab / Microbiology Data 05/07/25 06:54 05/07/25 06:54 Laboratory: Laboratory Results - last 24 hr 05/07/25 05:45: C-React Prot Ext Range 6.88 H 05/07/25 06:54: ESR 36 H, JAYRO-1 Antibody TNP, Scl-70 Scleroderma Ab TNP, Antichromatin Antibodies TNP, Centromere B Antibody TNP 05/07/25 11:32: POC Glucose 208 H 05/07/25 12:00: Urine Test Negative 05/07/25 17:36: POC Glucose 193 H 05/07/25 20:43: POC Glucose 183 H Microbiology: Microbiology 05/03/25 17:45 Urine Catheter - [facility] Urine Culture - Final Culture exhibits no growth. 05/03/25 17:14 Blood Culture (Wb) - Left Wrist Blood Culture - Preliminary No growth in 48 hours. 05/03/25 17:14 Blood Culture (Wb) - Right Wrist Blood Culture - Preliminary No growth in 48 hours. D/C Instructions Discharge Activity: Return to Normal Activity Call your doctor if you observe: Fever of 101 or Higher, Shortness of breath, Fainting spells and Chest pain DC O2, CPAP, BIPAP Needs Home O2 Discharge instructions: No Meaningful Use Info Meaningful Use Meaningful Use Diagnoses (Choose all that apply): VTE VTE Anticoag overlap given w/in hospital stay or rx'd at dc?: No Pt receive overlap for 5 days?: No Reason overlap not ordered, prescribed, or given for 5 days: Treatment Not Indicated Discharge Plan Admission Admit Date/Time: 05/04/25 12:28 Attending Provider: Vance Blanco Primary Care Provider: Rivka Carmona Consulting Providers: Alberto Kinney; Abad Rice; Rekha Morley; Krys Farley; Idania Kothari; Ariadne Hobbs Discharge Orders/Prescriptions Prescriptions: New mesalamine 4 gram/60 mL Enema 4 g MD DAILY Qty: 0 0RF acetaminophen 325 mg Tablet 650 mg PO Q4H PRN PRN (Reason: Fever, pain 1-10/10) Qty: 0 0RF albuterol sulfate 2.5 mg /3 mL (0.083 %) Solution For Nebulization 2.5 mg inhalation Q2H PRN PRN (Reason: Dyspnea, wheezing) Qty: 0 0RF alum-mag hydroxide-simeth [Mag-Al Plus Extra Strength] 400-400-40 mg/5 mL Suspension 30 ml PO Q6H PRN PRN (Reason: Gastric Burning) Qty: 0 0RF Glucerna 1.2 Vivek 0.06-1.2 gram-kcal/mL Liquid 120 ml PO TIDCM Qty: 0 0RF Eliquis 5 mg Tablet 5 mg PO BID Qty: 0 0RF Daily Fiber (psyllium-aspart) 3 gram Powder In Packet 1 packet PO DAILY Qty: 0 0RF prednisone 10 mg tablet See Rx Instructions .ROUTE .COMPLEX Qty: 90 0RF Rx Instructions: 40 mg orally daily x 2 weeks 30 mg orally daily x 2 weeks 20 mg orally daily x 2 weeks 10 mg orally daily x 2 weeks pantoprazole [Protonix] 40 mg tablet,delayed release (DR/EC) 40 mg PO DAILY Qty: 60 0RF Continued fluoxetine 20 mg capsule 20 mg PO DAILY glipizide 5 mg tablet 5 mg PO BID metformin 500 mg tablet 500 mg PO BID insulin glargine-yfgn 100 unit/mL (3 mL) Insulin Pen 10 unit subcut BID Qty: 0 0RF insulin lispro [Humalog KwikPen Insulin] 100 unit/mL Insulin Pen 5 unit subcut TIDAC Qty: 0 0RF melatonin 5 mg capsule 5 mg PO QHS metoprolol tartrate 25 mg tablet 25 mg PO BID Referrals / Follow Up: Jamari Byrne MD [Non-Staff, Family Practice] Rivka Carmona MD [Primary Care Provider, Geriatrics] Disposition Disposition (needs filled in before D/C Order can be placed): [facility] Charges/Coding Visit Charges Inpatient E&M: 18278 Disch Hosp >30min
[2025-05-08] MEDS: Insulin Glargine-YFGN 100 UNIT/ML Pen 10 UNIT SC (08:56)
[2025-05-08 08:58] VITALS: BP 122/96; PULSE 125
[2025-05-08] MEDS: Polyethylene Glycol 3350 17 GM PACKET PO (09:00)
[2025-05-08] MEDS: Psyllium 1 PACKET PO (09:00)
--- NOTE | 2025-05-08 09:00 | TREXTCAR_ITS ---
Diet Diet Order/Speech Therapy: INPATIENT Hospital Diet / Speech Therapy Order(s) 05/07/25 13:39 Diet: Regular - General Food consistency:: Pureed Liquid Consistency:: Regular/Thin Type of Dietary Supplement:: Manny Diet Comments: manny with breakfast and dinner DC O2, CPAP, BIPAP needs Home O2 Discharge instructions: No Wound(s) coccyx: Wound Type: Pressure Injury Therapies Physical Therapy: Eval and Treat Occupational Therapy: Eval and Treat Speech Therapy: Eval and Treat Problem/Diagnosis (1) Bilateral pulmonary embolism: Status: Acute Code(s): I26.99 - Other pulmonary embolism without acute cor pulmonale Plan Patient is a 30-year-old lady with multiple comorbidities resident at an extended care facility brought in with progressive generalized weakness and shortness of breath. Imaging studies obtained on admission demonstrated Few small segmental-subsegmental pulmonary arterial emboli. Small subpleural airspace opacity in the posterior right lung base may represent atelectasis versus a small pulmonary infarct. 1. Acute pulmonary embolism with suspected pulmonary infarct – Patient admitted to a monitored bed started on heparin drip 2D echo ordered ordered bilateral lower venous duplex to assess for possible IVC filter placement in case patient is not able to tolerate systemic anticoagulation – 05/05/2025; patient bilateral venous duplex negative for DVT. Patient was on heparin plan is to switch to DOAC 05/06/2025. Patient was started on apixaban however she did develop bleeding per rectum apixaban subsequently discontinued. Given the echo Finding on patient CTA repeat CT was ordered for further evaluation prior to committing patient to long-term systemic anticoagulation. Patient repeat CT demonstrated the pulmonary embolism being present. Patient subsequently started on heparin pending repeat endoscopic evaluation by GI – 05/07/2025 Case was discussed with Dr. Rice the day prior. Requested for repeat colonoscopy given patient repeat CT demonstrating the presence of a pulmonary embolism. Patient heparin had been reinitiated however GI recommended for the heparin to be held pending patient's endoscopic evaluation – 05/08/2025; patient underwent colonoscopy the day prior. Patient started on apixaban starting this a.m. 2. Suspected lower GI bleed – Patient seen in consultation by GI plan is for patient to undergo endoscopic evaluation given the fact that patient may need to be on long-term systemic anticoagulation. – 05/05/2025;Patient colonoscopy performed the day prior was nondiagnostic given poor prep. Patient has however not had any recurrence of her GI bleed –05/07/2025; plan is for patient to undergo repeat colonoscopy. Did receive the prep the day prior - 05/08/2025;Patient underwent colonoscopy the day prior findings included stool in the entire examined colon. - Mucosal ulceration. Biopsied. Treated with argon plasma coagulation (APC). Plan is for patient to be started on systemic anticoagulation. Patient was also prescribed mesalamine 1 g twice daily. Metamucil twice daily 3. Diabetes mellitus type II -patient's oral hypoglycemics held. Placed on long acting insulin, Accu-Cheks a.c. and at bedtime and covered with sliding scale insulin 4. Mild intermittent asthma – Aerosol treatments as needed 5. Depression – Patient is on fluoxetine continue 6. Class I obesity with BMI of 31 – Complicating care weight loss advised 7. Hypertension – Blood pressure control not optimal with blood pressure 154/101 this a.m. adjusted home medications 8. Physical deconditioning – Requested for PT OT eval and public health social worker to assist with discharge planning – 05/05/2025; plan is for patient to be discharged back to [facility] pending insurance approval Time spent in the patient's overall evaluation,decision-making process, review of diagnostic data, adjustment of management, discussion with other providers, nursing nursing and ancillary staff involved in patient's care documentation, 35 Minutes Allergies/Procedures Done in Hospital Allergies aripiprazole (From Abilify) Adverse Reaction (Verified 05/03/25 17:05) Other Suicidal Ideation metoclopramide (From Reglan) Adverse Reaction (Verified 05/03/25 17:05) Other Heart palpitations ondansetron (From Zofran) Adverse Reaction (Verified 05/03/25 17:05) Vomiting quetiapine (From Seroquel) Adverse Reaction (Verified 05/03/25 17:05) Other Lethargy sertraline (From Zoloft) Adverse Reaction (Verified 05/03/25 17:05) Other Suicidal Ideation Type of Care/Length of Stay Estimated LOS: More Than 30 Days Type of Care Needed: Intermediate Rehab Potential: Fair Prognosis: Fair Additional Orders/Day of Discharge Day of Discharge: 05/08/25 Dietary and Speech Recommendations Dietitian Recommendations/Changes: Adjust to consistent carbohydrate diet. Will order manny BID with breakfast and dinner to promote wound healing. Will discontinue 120mL glucerna shake TID with medpass, as diet is advanced. Will monitor weight trends. Discharge Plan Admission Admit Date/Time: 05/04/25 12:28 Attending Provider: Vance Blanco Primary Care Provider: Rivka Carmona Consulting Providers: Alberto Kinney; Abad Rice; Rekha Morley; Krys Farley; Idania Kothari; Ariadne Hobbs Discharge Orders/Prescriptions Prescriptions: New mesalamine 4 gram/60 mL Enema 4 g [place] DAILY Qty: 0 0RF acetaminophen 325 mg Tablet 650 mg PO Q4H PRN PRN (Reason: Fever, pain 1-03/18) Qty: 0 0RF albuterol sulfate 2.5 mg /3 mL (0.083 %) Solution For Nebulization 2.5 mg inhalation Q2H PRN PRN (Reason: Dyspnea, wheezing) Qty: 0 0RF alum-mag hydroxide-simeth [Mag-Al Plus Extra Strength] 400-400-40 mg/5 mL Suspension 30 ml PO Q6H PRN PRN (Reason: Gastric Burning) Qty: 0 0RF Glucerna 1.2 Vivek 0.06-1.2 gram-kcal/mL Liquid 120 ml PO TIDCM Qty: 0 0RF Eliquis 5 mg Tablet 5 mg PO BID Qty: 0 0RF Daily Fiber (psyllium-aspart) 3 gram Powder In Packet 1 packet PO DAILY Qty: 0 0RF prednisone 10 mg tablet See Rx Instructions .ROUTE .COMPLEX Qty: 90 0RF Rx Instructions: 40 mg orally daily x 2 weeks 30 mg orally daily x 2 weeks 20 mg orally daily x 2 weeks 10 mg orally daily x 2 weeks pantoprazole [Protonix] 40 mg tablet,delayed release (DR/EC) 40 mg PO DAILY Qty: 60 0RF Continued fluoxetine 20 mg capsule 20 mg PO DAILY glipizide 5 mg tablet 5 mg PO BID metformin 500 mg tablet 500 mg PO BID insulin glargine-yfgn 100 unit/mL (3 mL) Insulin Pen 10 unit subcut BID Qty: 0 0RF insulin lispro [Humalog KwikPen Insulin] 100 unit/mL Insulin Pen 5 unit subcut TIDAC Qty: 0 0RF melatonin 5 mg capsule 5 mg PO QHS metoprolol tartrate 25 mg tablet 25 mg PO BID Referrals / Follow Up: Jamari Byrne MD [Non-Staff, Family Practice] Rivka Carmona MD [Primary Care Provider, Geriatrics] Disposition Disposition (needs filled in before D/C Order can be placed): Assisted Facility
[2025-05-08] MEDS: APIXABAN 5 MG TABLET PO (09:31)
[2025-05-08 09:48] VITALS: BP 122/56; PULSE 125; RESP 18; TEMP 36.4; O2SAT 97
--- NOTE | 2025-05-08 10:15 | NURSING ---
Attempted to call report to [facility], after being placed on hold four times PCU phone number was given to call for report when they have time.
[2025-05-10 13:08] LABS: Anti-Chromatin <0.2 AI (0.0-0.9); Anti-Jo <0.2 AI (0.0-0.9); Anti-dsDNA Ab <1 IU/mL (0-9); SJOGREN'S Anti-SS-A test < 0.2 AI (0.0-0.9); SJOGREN'S Anti-SS-B test < 0.2 AI (0.0-0.9)
[2025-05-12 16:10] LABS: ACCA 26 units (0-90); ALCA 9 units (0-60); AMCA 29 units (0-100)
== END 2025-05-08 11:26 | disposition skilled nursing facility (03) | DRG 176 ==
LOC: ED 19:40 → PCU 20:08
PROVIDERS: Internal Medicine Gastroenterology; Student in an Organized Health Care Education/Training Program; Admitting Provider Family Medicine; Emergency Provider Emergency Medicine; PCP Internal Medicine; Referring Provider Internal Medicine; Visit Provider Internal Medicine
PROC: 0DJD8ZZ Inspection of Lower Intestinal Tract, Via Natural or Artificial Opening Endoscopic (ICD-10-PCS; CPT 45378; principal; 2025-05-04 15:25)
DX: I26.99 Other pulmonary embolism without acute cor pulmonale (principal); B25.8 Other cytomegaloviral diseases; K62.6 Ulcer of anus and rectum; K62.5 Hemorrhage of anus and rectum; R62.7 Adult failure to thrive; E11.9 Type 2 diabetes mellitus without complications; F31.9 Bipolar disorder, unspecified; J45.20 Mild intermittent asthma, uncomplicated; I10 Essential (primary) hypertension; E66.811 Obesity, class 1; Z79.4 Long term (current) use of insulin; F41.9 Anxiety disorder, unspecified; I26.93 Single subsegmental thrombotic pulmonary embolism without acute cor pulmonale; Z68.31 Body mass index [BMI] 31.0-31.9, adult; Z79.01 Long term (current) use of anticoagulants; Z79.84 Long term (current) use of oral hypoglycemic drugs; Z79.899 Other long term (current) drug therapy; Z87.891 Personal history of nicotine dependence
CPT/HCPCS: 36415; 51702; 71275; 80048; 80053; 81001; 81025; 82962; 83516; 83605; 83735; 84100; 84484; 84703; 85025; 85610; 85652; 85730; 86036; 86140; 86225; 86235; 86671; 87040; 87086; 88305; 88342; 93005; 93970; 97110; 97163; 97166; 97530; 97535; 97802; 97803; 99285; 99406; Q9967; A4216

== ENCOUNTER 2025-05-10 17:15 | Emergency (ER) | payer MEDICARE, MEDICAID, SELFPAY ==
[2025-05-10 17:16] VITALS: BP 141/94; PULSE 135; RESP 25; TEMP 36.8; O2SAT 97; BMI 26.8
--- NOTE | 2025-05-10 18:00 | EKG12_ITS ---
Test Reason : INCREASED HR Blood Pressure : */* mmHG Vent. Rate : 134 BPM Atrial Rate : 134 BPM P-R Int : 126 ms QRS Dur : 66 ms QT Int : 318 ms P-R-T Axes : 31 47 19 degrees QTcB Int : 474 ms Sinus tachycardia Nonspecific T wave abnormality Abnormal ECG Confirmed by Clovis Diego ([id number]), primer expeditor and drier JOSE GALDAMEZ ([id number]) on 05/11/2025 8:48:09 AM Referred By: Confirmed By: Clovis Diego
[2025-05-10 18:18] LABS: SITE Not entered; VBG BASE EXCESS 4 mmol/L (-1.0-3.5); VBG PO2 46 mmHg (25-40); VBG SO2 85 % (50-70); VBG TCO2 29 mmol/L (23-33)
[2025-05-10 18:19] LABS: Hematocrit 41.0 % (37-47); Hemoglobin 13.9 g/dL (12.0-15.0); Immature Granulocytes Count 0.050 X10^3/uL (0.0-0.0); Mean Corp Hgb Conc 33.9 g/dL (32-36); Mean Corpuscular Volume 84.4 fL (81-99); Mean Platelet Vol. 9.3 fl (6.2-12.0); NRBC Flagged by Analyzer 0 % (0-5); Platelet Count 447 K/mm3 (150-450); RBC Distribution Width CV 15.2 % (11.6-14.6); RBC Distribution Width SD 45.5 fl (35.1-43.9); Red Blood Count 4.86 M/mm3 (4.2-5.4); White Blood Count 7.6 K/mm3 (4.4-11.0)
[2025-05-10 18:42] LABS: Color, Urine Yellow (Yellow); Glucose, Dipstick 1000 mg/dl (Normal); Ketone-Dipstick 5 mg/dl (Negative); Leukocyte Esterase-Dipstick 25 /ul (Negative); Mucous, Urine 0 SEEN /hpf (<or=2+); Nitrite-Dipstick Positive (Negative); Occult Blood-Urine 25 /ul (Negative); Protein-Dipstick 30 mg/dl (Negative); Red Blood Cells-Urine 0 SEEN /hpf (0-5); Specific Gravity, Urine 1.025 (1.002-1.030); Squamous Epithelial Cells - UA 0 SEEN /hpf (5-10)
[2025-05-10 18:43] LABS: Urine Bilirubin Dipstick 1 mg/dL (Negative)
[2025-05-10 18:48] LABS: AST(SGOT) 26 U/L (<=31); Alanine Aminotransfer ALT/SGPT 79 U/L (<=34); Albumin, Serum 4.2 g/dL (3.5-5.0); Alkaline Phosphatase 74 U/L (35-104); Anion Gap 12 (5-15); BUN 27 mg/dL (4-19); BUN/Creat Ratio 100.0 RATIO (10-20); Calcium,Total 10.2 mg/dL (7.6-11.0); Carbon Dioxide 25.0 mmol/L (21.0-32.0); Chloride 104 mmol/L (98-108); Estimated Creatinine Clearance 272.71 ml/min (50-250); Globulin 3.0 g/dL (2.2-4.2); Glucose 200 mg/dL (70-99); Potassium 4.0 mmol/L (3.3-5.1)
--- NOTE | 2025-05-10 18:55 | ED.RN ---
Called [facility] about pt being D/C, spoke with primary RN. All questions answered.
--- NOTE | 2025-05-10 19:12 | EX.ED.DYSGE1 ---
HPI History of Present Illness Chief Complaint: Weakness Detail of Chief Complaint: Patient sent in from nursing because of weakness. Informant: patient and SNF (Nurse at facility told the ER nurse that patient needs MRI and an LP. [place] neurologist is not been able to see her for months.) Limited: other (Patient's daughters and developed abnormal breathing when someone is present in the room) Onset/Context/Timing Onset: Weeks and Month(s) Context: Sudden Onset Timing: Continuous Quality: Stuttering, unable to move her legs, denies being sad or depressed Location: Patient presents from nursing facility Current Severity: Unable to determine Maximum Severity: Unable to determine Worsened by: Apparently there was a situational problem and patient's had issues since t Relieved by: Nothing Associated Symptoms Associated Symptoms: Reports unable to move her legs Narrative Narrative: Patient is a 30-year-old female. She has history of type 2 diabetes, nausea and vomiting, on anticoagulant for bilateral pulmonary embolus, tachycardia, asthma and osteoarthritis. Patient was sent in for a stat MRI and lumbar puncture. Patient is difficult to understand. She stutters and speaks very softly. She had to repeat her answers multiple times so I was able to understand her. She states she cannot move her legs and she is weak. She denies headache. She denies any visual, ocular auditory symptoms. She denies cardiac or respiratory symptoms. She denies vomiting or diarrhea. She has possibly discomfort/burning when she urinates. Patient was recently admitted for bilateral pulmonary embolus. Reviewed Dr. Vance Blanco's discharge summary note. And also reviewed his transfer summary note. Patient did inform us she had a recent procedure by Dr. Rice. She apparently had mucosal ulcerations noted on colonoscopy. Biopsies were taken. Recommendation was to return to the medical unit, resume regular diet, continue present meds and await pathology results. She was treated with systemic steroids. She was admitted earlier in April for DKA. She was seen by Dr. Stephanie Rojas. H&P performed by Dr. Ariadne Hobbs was reviewed. Discharge summary was also reviewed. This was performed by Dr. Starks Prior similar symptoms: Yes Recent Illness/Hospitalization: Yes [facility] Medical History Anxiety and depression Former smoker Wears dentures Wears glasses Bipolar disorder Gastric reflux Insulin dependent diabetes mellitus Asthma Osteoarthritis Diabetes Home Medications ?Medication ?Instructions ?Recorded ?Last Taken ?Type fluoxetine 20 mg capsule 20 mg PO DAILY anxiety 11/15/24 12/16/24 History glipizide 5 mg tablet 5 mg PO BID dm 04/20/25 Unknown History metformin 500 mg tablet 500 mg PO BID dm 04/20/25 Unknown History insulin lispro 100 unit/mL 5 unit (0.05 mL) subcut TIDAC #0 mL 04/26/25 Unknown Rx subcutaneous pen (Humalog KwikPen (U-100) Insulin) melatonin 5 mg capsule 5 mg PO QHS 05/03/25 Unknown History metoprolol tartrate 25 mg tablet 25 mg PO BID 05/04/25 Unknown History acetaminophen 325 mg tablet 650 mg (2 x 325 mg) PO Q4H PRN PRN 05/08/25 Unknown Rx Fever, pain -03/18 #0 tabs albuterol sulfate 2.5 mg/3 mL 2.5 mg (3 mL) inhalation Q2H PRN 05/08/25 Unknown Rx (0.083 %) solution for nebulization PRN Dyspnea, wheezing #0 mL aluminum-mag hydroxide-simethicone 30 ml PO Q6H PRN PRN Gastric 05/08/25 Unknown Rx 400 mg-400 mg-40 mg/5 mL oral susp Burning #0 mL (Mag-Al Plus Extra Strength) apixaban 5 mg tablet (Eliquis) 5 mg PO BID #0 tabs 05/08/25 Unknown Rx mesalamine 4 gram/60 mL enema 4 g (60 mL) OH DAILY #0 mL 05/08/25 Unknown Rx nutrition tx glu 120 ml PO TIDCM #0 mL 05/08/25 Unknown Rx intol,lac-free,soy-fiber 0.06 gram-1.2 kcal/mL liquid (Glucerna 1.2 Vivek) pantoprazole 40 mg tablet,delayed 40 mg PO DAILY #60 tabs 05/08/25 Unknown Rx release (Protonix) prednisone 10 mg tablet See Rx Instructions .Route 05/08/25 Unknown Rx .COMPLEX #90 tabs psyllium husk 3 gram oral powder 1 packet PO DAILY #0 ea 05/08/25 Unknown Rx packet (Daily Fiber (psyllium-aspartame)) bisacodyl 10 mg rectal suppository 10 mg OH DAILY PRN constipation 05/10/25 Unknown History insulin glargine 100 unit/mL (3 10 unit subcut BID 05/10/25 Unknown History mL) subcutaneous pen (Lantus Solostar U-100 Insulin) nitrofurantoin 100 mg PO Q12 #10 CAPSULES 05/10/25 Unknown Rx monohydrate/macrocrystals 100 mg capsule Allergy/AdvReac Type Severity Reaction Status Date / Time aripiprazole (From Abilify) AdvReac Other Verified 05/10/25 17:19 metoclopramide (From Reglan) AdvReac Other Verified 05/10/25 17:19 ondansetron (From Zofran) AdvReac Vomiting Verified 05/10/25 17:19 quetiapine (From Seroquel) AdvReac Other Verified 05/10/25 17:19 sertraline (From Zoloft) AdvReac Other Verified 05/10/25 17:19 Family History Father Heart disease Hyperlipemia Mother COPD (chronic obstructive pulmonary disease) Surgical History History of dilation and curettage History of oral surgery History of cholecystectomy Social History household members: none housing: shelter number of children: 2 current occupational status: disabled Smoking Status: Former smoker alcohol intake: never substance use type: does not use ROS ROS ED Constitutional Constitutional ED: Denies chills, fever(s), subjective or sweats Eyes Eyes: Denies blurry vision or change in vision ENT ENT ED: Denies ear pain, rhinorrhea or sore throat Cardiovascular Cardiovascular: Reports palpitations and racing heartbeat; Denies chest pain or orthopnea Respiratory/Chest Respiratory/Chest: Denies cough, dyspnea, dyspnea on exertion or orthopnea Gastrointestinal Gastrointestinal: Denies abdominal pain, diarrhea, nausea or vomiting Genitourinary Genitourinary ED: Reports other Details: She denies incontinence of urine or stool. She denies numbness or tingling in the perineal region when she wipes. ; Denies hematuria Musculoskeletal Musculoskeletal: Denies arthralgias or myalgias Integumentary Denies rash Neurologic Neurologic: Reports weakness; Denies headache(s) or paresthesias Endocrine Endocrinology: Reports cold intolerance and heat intolerance Hematologic/Lymphatic Hematologic/Lymphatic: Reports systems reviewed and no addt'l complaints, except as documented EXAM Physical Exam Const Vital Signs: 05/10/25 17:16 05/10/25 17:19 Temperature 98.3 F Temperature Source Oral Pulse Rate 135 H Respiratory Rate 25 H Respiratory Effort Normal Respiratory Pattern Normal Blood Pressure 141/94 H Blood Pressure Mean 109 Pulse Ox 97 Oxygen Delivery Method Room Air Positive well nourished and well developed Constitutional Narrative: Patient breathing becomes abnormal when someone enters the room. She becomes quite tachypneic. She also has a soft voice and stutters. General Appearance ED: well developed; Negative for pallor HEENT Reports moist mucous membranes HEENT Narrative: She appears to have conjunctivitis on the left. She does wear glasses. Nares patent no discharge. Posterior pharynx is normal. Eyes PERRL and EOMs intact bilaterally General Eye ED: Negative for pale conjunctiva or scleral icterus Neck no lymphadenopathy, supple and no JVD Neck Narrative: Negative meningeal findings. Resp normal respiratory effort and clear to auscultation bilaterally Cardio regular rhythm, S1 normal heart sound, S2 normal heart sound and no murmurs Rate: tachycardic GI normal to inspection, nondistended, normoactive bowel sounds, non-distended and no masses; Negative for non-tender or hepatosplenomegaly Palpation: tender suprapubic Back/Spine no CVA tenderness Extremity normal to inspection Neuro oriented x3, CN's II-XII intact bilaterally and no sensory deficits noted Neuro Narrative: Patient will not move her legs. Frost test indicates patient is not attempting or trying to move her legs. Psych Mood & Affect: depressed and tearful Skin no rashes or lesions noted, no wounds and skin turgor normal General Skin Exam: Negative for jaundice or pallor MDM MDM MDM Narrative Medical decision making narrative: Will have nurse contact the nursing facility and informed that since patient is on Eliquis lumbar puncture is contraindicated. Since patient's had symptoms for some time there is no indication for stat MRI. Because she is diabetic we will obtain electrolyte panel to assess glucose CO2 anion gap. Also to assess her hydration status i.e. BUN to creatinine ratio. Will obtain a UA because of her urinary symptoms. Also to assess for ketones. In my professional opinion patient does not need emergent advanced imaging and a lumbar puncture is contraindicated in a patient taking Eliquis. Did not recommend discontinuing Eliquis for an LP since she was recently diagnosed with bilateral pulmonary embolus. Patient's most recent ER visits admission and colonoscopy were documented in the [facility] narrative History & Record Review Additional record(s) reviewed:: Prior inpatient record, Prior outpatient record, Prior ED visit and Prior labs Lab Data Attestation: I reviewed the patient's lab results. Lab results narrative: CBC is unremarkable. Competence of metabolic panel reveals a BUN of 27 and a creatinine of 0.27. Her BUN to creatinine ratio is elevated consistent with dehydration. Urine confirms this with a spec gravity of 1.025. There is protein, glucose ketones and occult blood noted. She is positive for nitrites. There is 4+ bacteria on the microscopic. This was a cath specimen. Urine culture was sent. She will be treated with antibiotics. She has no allergy to antibiotics. Labs: Laboratory Results - last 24 hr 05/10/25 05/10/25 18:10 18:32 WBC 7.6 RBC 4.86 Hgb 13.9 Hct 41.0 MCV 84.4 MCH 28.6 MCHC 33.9 RDW Std Deviation 45.5 H RDW Coeff of Linda 15.2 H Plt Count 447 MPV 9.3 Immature Gran % (Auto) 0.700 Neut % (Auto) 73.6 H Lymph % (Auto) 16.6 L [place] % (Auto) 8.6 Eos % (Auto) 0.0 Baso % (Auto) 0.5 Absolute Neuts (auto) 5.6 Absolute Lymphs (auto) 1.26 Nucleated RBC % 0 Sodium 141 Potassium 4.0 Chloride 104 Carbon Dioxide 25.0 Anion Gap 12 BUN 27 H Creatinine 0.27 L Estim Creat Clear Calc 272.71 H Est GFR (MDRD) Non-Af 150 BUN/Creatinine Ratio 100.0 H Glucose 200 H Lactic Acid 1.2 Calcium 10.2 Total Bilirubin 0.42 AST 26 ALT 79 H Alkaline Phosphatase 74 Total Protein 7.2 Albumin 4.2 Globulin 3.0 Albumin/Globulin Ratio 1.4 Urine Color Yellow Urine Clarity Cloudy Urine pH 5.0 Ur Specific [place] 1.025 Urine Protein 30 H Urine Glucose (UA) 1000 H Urine Ketones 5 H Urine Occult Blood 25 H Urine Nitrite Positive H Urine Bilirubin 1 H Urine Urobilinogen 1 H Ur Leukocyte Esterase 25 H Urine RBC 0 SEEN Urine WBC 0-5 SEEN Ur Squamous Epith Cells 0 SEEN Urine Bacteria 4+ Urine Mucus 0 SEEN ABG Data ABG results: ABG 05/10/25 18:[address] Sample Site Not entered VBG pH 7.48 H VBG pO2 46 H VBG HCO3 28 H VBG Total CO2 29 VBG O2 Sat (Calc) 85 H VBG Base Excess 4 H POC Mix VBG pCO2 Pt Tmp 36.8 L O2 Delivery Device Not entered Treatment and Re-Evaluation :: Review of prior records Kate patient is tachycardic persistently. She does improve after fluids. Since she is only mildly dehydrated this can be corrected orally and there is no indication for rapid IV and infusions. Also suspect that there is a psychological component since she has increased in respirate when someone enters the room and she begins to stutter. Furthermore since there is no effort to raise her legs again believe this to be due to affective disorder i.e. functional neurologic complaint Discharge Plan Triage Chief Complaint: Weakness ED Provider: Chago Tinajero Dx/Rx/DC Orders Clinical Impression: Urinary tract infection, Functional neurological symptom disorder with weakness or paralysis, Sinus tachycardia seen on nuclear monitoring technician, Dehydration, mild, Hyperglycemia due to type 2 diabetes mellitus, Anticoagulant long-term use Instructions: ED Functional Neurological ..., ED Bladder Infec Fem Ch Prescriptions: New nitrofurantoin monohyd/m-cryst 100 mg capsule 100 mg PO Q12 Qty: 10 0RF No Action fluoxetine 20 mg capsule 20 mg PO DAILY glipizide 5 mg tablet 5 mg PO BID metformin 500 mg tablet 500 mg PO BID insulin lispro [Humalog KwikPen Insulin] 100 unit/mL Insulin Pen 5 unit subcut TIDAC Qty: 0 0RF melatonin 5 mg capsule 5 mg PO QHS metoprolol tartrate 25 mg tablet 25 mg PO BID mesalamine 4 gram/60 mL Enema 4 g OH DAILY Qty: 0 0RF acetaminophen 325 mg Tablet 650 mg PO Q4H PRN PRN (Reason: Fever, pain 1-03/18) Qty: 0 0RF albuterol sulfate 2.5 mg /3 mL (0.083 %) Solution For Nebulization 2.5 mg inhalation Q2H PRN PRN (Reason: Dyspnea, wheezing) Qty: 0 0RF alum-mag hydroxide-simeth [Mag-Al Plus Extra Strength] 400-400-40 mg/5 mL Suspension 30 ml PO Q6H PRN PRN (Reason: Gastric Burning) Qty: 0 0RF Glucerna 1.2 Vivek 0.06-1.2 gram-kcal/mL Liquid 120 ml PO TIDCM Qty: 0 0RF Eliquis 5 mg Tablet 5 mg PO BID Qty: 0 0RF Daily Fiber (psyllium-aspart) 3 gram Powder In Packet 1 packet PO DAILY Qty: 0 0RF prednisone 10 mg tablet See Rx Instructions .ROUTE .COMPLEX Qty: 90 0RF Rx Instructions: 40 mg orally daily x 2 weeks 30 mg orally daily x 2 weeks 20 mg orally daily x 2 weeks 10 mg orally daily x 2 weeks pantoprazole [Protonix] 40 mg tablet,delayed release (DR/EC) 40 mg PO DAILY Qty: 60 0RF bisacodyl 10 mg suppository 10 mg OH DAILY PRN (Reason: constipation) insulin glargine [Lantus Solostar U-100 Insulin] 100 unit/mL (3 mL) insulin pen 10 unit subcut BID Primary Care Provider: Rivka Carmona Referrals: Rivka Carmona MD [Primary Care Provider, Geriatrics] - 5-7 Days Activity Restrictions/Additional Instructions: 1. Need to increase fluid intake. 2. Need to take antibiotics till gone. 3. Lumbar puncture was not performed since it is contraindicated in a patient on anticoagulant, Eliquis. 4. MRI was not obtained since his is not an acute problem and does not meet criteria for a stat MRI. Print Language: Malay Disposition Disposition: Home, Self Care
[2025-05-10 19:15] VITALS: BP 141/94; PULSE 138; RESP 16; O2SAT 99
[2025-05-10 21:00] VITALS: BP 138/100; PULSE 140; O2SAT 98
[2025-05-10 22:30] VITALS: BP 138/100; PULSE 140; RESP 16; TEMP 36.6; O2SAT 98
[2025-05-10 23:00] VITALS: BP 141/105; PULSE 137; RESP 17; O2SAT 98
== END 2025-05-10 23:49 | disposition home or self-care (01) ==
PROVIDERS: Emergency Provider Emergency Medicine; PCP Internal Medicine; Visit Provider Emergency Medicine
DX: N39.0 Urinary tract infection, site not specified (principal); I26.99 Other pulmonary embolism without acute cor pulmonale; E11.65 Type 2 diabetes mellitus with hyperglycemia; Z79.4 Long term (current) use of insulin; F44.4 Conversion disorder with motor symptom or deficit; E86.0 Dehydration; R00.0 Tachycardia, unspecified; Z79.01 Long term (current) use of anticoagulants; Z79.84 Long term (current) use of oral hypoglycemic drugs; Z79.899 Other long term (current) drug therapy; Z87.891 Personal history of nicotine dependence
CPT/HCPCS: 80053; 81001; 82803; 83605; 85025; 93005; 99285; P9612; A4216

== ENCOUNTER 2025-05-15 12:14 | Emergency (ER) | payer MEDICARE, MEDICAID, SELFPAY ==
[2025-05-15 12:15] VITALS: BP 141/106; PULSE 100; RESP 18; TEMP 36.8; O2SAT 96; BMI 27.8
--- OUTSIDE RECORDS SUMMARY | 2025-05-15 12:46 | XMS RPT_ITS | CCD ---
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 Name Role Phone HERNANDEZLESLIEJOSIE Unavailable Unavailable ARMINDA, VERONA Unavailable Unavailable ARMINDA, VERONA Unavailable Unavailable RAPHAEL CABEZAS Unavailable Unavailable ARMINDA, VERONA Unavailable Unavailable HERNADNEZ, JOSIE Unavailable Unavailable ARMINDA, VERONA Unavailable Unavailable [...] Unavailabl e Arminda, Verona Primary Care Provider [phone] Arminda, Verona Primary Care Provider Juno Blackburn Unavailable Unavailable Unavailable Unavailable Unavailable Oberhauser, Rich Unavailable Unavailable [place] Juno Unavailable Unavailable Oberhauser, Rich L Unavailable Unavailable MATY CHAVEZ Admitting Unavailable KOMALMATY CORBIN Referring Unavailable ARMINDA, VERONA Primary Care Unavailable Arminda, Verona Primary Care Provider ARMINDA, VERONA Primary Care Unavailable CAROL GUBERT KEENAN Attending Unavailable ARMINDA, VERONA Primary Care Unavailable OBERHAUSER RICH Referring Unavailable MEDINALUPEBERT KEENAN Attending Unavailable ARMINDA, VERONA Primary Care Unavailable REKHA ROCHA Attending Unavailabl e MEDINASRINI KEENAN Attending Unavailable ARMNIDA, VERONA Primary Care Unavailable MEDINA, GUBERT KEENAN Admitting Unavailable ARMINDA, VERONA Primary Care Unavailable MEDINA GUBERT KEENAN Attending Unavailable MEDINA, GUBERT KEENAN Referring Unavailable ARMINDA, VERONA Primary Care Unavailable MATY CHAVEZ Attending Unavailable KOMAL, MATY LISA Referring Unavailable Arminda, Verona Primary Care Provider Unavailabl e Oberhauser, Rich L Unavailable Epifanio Sorensen Unavailable Unavailable ObnadirerRealn L Unavailable Unavailable Unavailable Unavailable Unavailable KATIANA ROCHA Referring Unavailable AJ KATIANA Primary Care Unavailable Jamari Byrne Unavailable Unavailable Unavailable Unavailable Unavailable Unavailable Unavailable Marshall Brown MD Primary Care Provider MARSHALL BROWN Primary Care Unavailable LAZARA JON Attending Unavailable Jamari Byrne MD Primary Care Provider Jamari Byrne MD Unavailable [phone] Jamari Byrne MD Primary Care Provider Jamari [...] ARIPiprazole (1 source) ARIPiprazole Drug Allergy Unknown [facility] DOPamine Antagonists (5 sources) Metoclopramide; Translations: [Reglan] Drug Allergy Unknown [facility] Ondansetron (5 sources) Ondansetron; Translations: [Zofran] Drug Allergy Unknown [facility] QUEtiapine (5 sources) QUEtiapine; Translations: [quetiapine] Drug Allergy Unknown [facility] (1 source) No Known Drug Allergies; Translations: [No Known Drug Allergies] Propensity to adverse reactions (disorder) [facility] Repository (1 source) No Known Allergies; Translations: [No Known Allergies] Propensity to adverse reactions (disorder) [facility] Repository (20 sources) Ondansetron; Translations: [Zofran] Drug Allergy 02-06-20 18 Nausea and Vomiting, Vomiting, GI Upset, Other, Unknown, Nausea/vomitin g [facility] (20 sources) Aluminum Hydroxide / Magnesium Hydroxide; Translations: [ALUMINUM-MAGNESIU M HYDROXIDE] Drug Allergy 02-06-20 18 GI Intolerance, Other, GI Upset [facility] (20 sources) Metoclopramide; Translations: [METOCLOPRAMIDE HCL] Drug Allergy 02-11-20 19 Hives, Unknown [facility] (20 sources) Ondansetron; Translations: [ONDANSETRON HCL] Drug Allergy 02-06-20 18 GI Intolerance, Unknown, GI Upset, Other [facility] (20 sources) QUEtiapine; Translations: [QUETIAPINE] Drug Allergy 10-05-19 19 Shortness Of Breath, Unknown, Palpitations, Other: See Comments, Other, Dyspnea [facility] Comment on above: Lethargy (14 sources) Metoclopramide; Translations: [Reglan] Drug Allergy Unknown [facility] Repository (4 sources) Ondansetron; Translations: [ZOFRAN] Drug Allergy Unknown [facility] Repository (20 sources) Sertraline; Translations: [SERTRALINE] Drug Allergy 12-08-19 20 Other, Mental Status Change, Unknown [facility] Repository Comment on above: Suicidal Ideation (20 sources) ARIPiprazole; Translations: [ARIPIPRAZOLE] Drug Allergy 12-14-19 23 Unknown, Mental Status Change [facility] Work Phone: Comment on above: Suicidal Ideation (20 sources) Metoclopramide; Translations: [METOCLOPRAMIDE] Drug Allergy 02-11-20 19 Vomiting, Hives, Nausea/vomitin g, Unknown, Nausea and Vomiting [facility] Comment on above: Heart palpitations (20 sources) Promethazine; Translations: [PROMETHAZINE] Drug Allergy 07-11-19 GI Upset [facility] Work Phone: (1 source) Promethazine Drug Allergy [facility] Repository (1 source) ARIPiprazole Drug Allergy 01-27-20 [facility] Repository (1 source) Metoclopramide Drug Allergy 01-27-20 [facility] Repository (1 source) Ondansetron Drug Allergy 01-27-20 [facility] Repository (1 source) QUEtiapine Drug Allergy 01-27-20 [facility] Repository Medications Current Medications Medication Drug [...] DAY FOR 2 DAYS. 04/19/2024 05/07/2024 Discontinued [id number] 200 actuat albuterol 0.09 mg/actuat metered dose [...] extended release oral tablet (1 source) Uncompetitive V-csvncu-B-aspartate Receptor Antagonist, Sigma-1 Agonist Start: take 30-600 [...] 15, 2024 4:00pm Mood Start: 02-26-2024 FLUoxetine (WV [place]ac) 40 mg capsule 04/15/2024 Active Start: [...] gestational diabetes mellitus (GDM) in first trimester ([facility]) Humalog 8 units prior to meals (+5 [...] bedtime insulin NPH human isophane (HUMULIN N TRANSLATION DIRECTOR H U-100 INSULIN SUBQ) Inject 15 Units [...] Start: 09-19-2020 take 1 capsule by mo moh once daily Omeprazole 20 MG Oral Capsule [...] device Indications: Hyperglycemia due to diabetes mellitus ([facility]) Apply every 10 days 3 each 09/09/2022 [...] Cleanup) Start: 12-08-2023 take 1 capsule by [facility] once daily at bedtime Caplyta 21 mg [...] infection in mother during first trimester of ([facility]) Take 1 capsule (500 mg) by [...] g 0 03/12/2017 09/12/2018 Discontinued Dexcom G4 [place] fire fighters dispatcher (Dexcom G6 Dialysis Patient Care Technician) misc (19 sources) Start: 03-17-2023 End: 05-04-2024 Dexcom G4 [place] fire fighters dispatcher (Dexcom G6 Dialysis Patient Care Technician) misc Indications: Hyperglycemia due to diabetes mellitus (Multi) Use as instructed 1 each 03/17/2023 05/04/2024 Discontinued (Med List Cleanup) Start: 03-17-2023 Dexcom G4 plat inum fire fighters dispatcher (Dexcom G6 Dialysis Patient Care Technician) misc Indications: Hyperglycemia due to diabetes mellitus (Multi) Use as instructed 1 each 03/17/2023 Active Start: 03-17-2023 Dexcom G4 plat inum fire fighters dispatcher (Dexcom G6 Dialysis Patient Care Technician) misc Indications: Hyperglycemia due to diabetes mellitus (CMS/HCC) Use as instructed 1 each 0 03/17/2023 Active Start: 09-09-2022 End: 05-04-2024 Dexcom G4 [place] fire fighters dispatcher (Dexcom G6 Dialysis Patient Care Technician) misc Indications: Hyperglycemia due to diabetes mellitus (Multi) Use as instructed 1 each 09/09/2022 05/04/2024 Discontinued (Med List Cleanup) Start: 09-09-2022 Dexcom G4 plat inum fire fighters dispatcher (Dexcom G6 Dialysis Patient Care Technician) misc Indications: Hyperglycemia due to diabetes mellitus (Multi) Use as instructed 1 each 09/09/2022 Active Start: 09-09-2022 Dexcom G4 plat inum fire fighters dispatcher (Dexcom G6 Dialysis Patient Care Technician) misc Indications: Hyperglycemia due to diabetes mellitus (CMS/HCC) Use as instructed 1 each 0 09/09/2022 Active Dexcom G4 [place] transmitt er (Dexcom G6 Transmitter) device (12 sources) Start: 05-09-2023 End: 05-04-2024 Dexcom G4 [place] transmitt er (Dexcom G6 Transmitter) device Indications: [...] Active Start: 12-13-2022 End: 05-09-2023 Dexcom G4 [place] transmitt er (Dexcom G6 Transmitter) device Indications: Hyperglycemia due to diabetes mellitus (CMS/HCC) Apply every 10 days 1 each 11 12/13/2022 05/09/2023 Discontinued (Reorder) Start: 12-13-2022 Dexcom G4 plat inum transmitter (Dexcom G6 Transmitter) device Indications: Hyperglycemia due to diabetes mellitus (CMS/HCC) Apply every 10 days 1 each 11 12/13/2022 Active Start: 09-09-2022 End: 12-13-2022 Dexcom G4 [place] transmitt er (Dexcom G6 Transmitter) device Indications: [...] pen Indications: Hyperglycemia due to diabetes mellitus (CMS/[facility]) Inject 10 Units under the skin once [...] injection Indications: Hyperglycemia due to diabetes mellitus ([facility]) Inject 10 Units under the skin once daily at bedtime. Take as directed per insulin instructions. 9 mL 3 12/13/2022 03/17/2023 Discontinued (Side effects) 3 ml insulin isophane, human 100 unt/ml pen injector (20 sources) Start: 02-01-2025 End: 02-22-2025 insulin NPH (HUMULIN N NPH INSULIN KWIKPEN) 100 unit/mL (3 mL) injection pen Indications: Insulin controlled gestational diabetes mellitus (GDM) in first trimester ([facility]) Inject 20 units at bed time 15 mL 11 02/01/2025 02/22/2025 Discontinued Start: 01-31-2025 End: 03-09-2025 HumuLIN N NPH Insulin KwikPe n 100 unit/mL (3 mL) pen Indications: type 2 diabetes mellitus Inject 20 Units under the skin once daily at bedtime. [facility] prescribes 01/31/2025 03/09/2025 Discontinued (Med List Cleanup) [...] gestational diabetes mellitus (GDM) in first trimester ([facility]) 90 units at bedtime 45 mL 11 [...] Start: 02-26-2024 take 1 capsule by mo [facility] once daily Lumateperone (Caplyta) 21 mg capsule [...] macrosomia in infant in prior , currently (HCC)] Onset: 05-07-2024 [...] (HSV-2) infection affecting , antepartum, unspecified trimester ([facility])] Onset: 07-13-2024 Episodic Other complications of (1 source) Supervision of high risk , unspecified, second trimester; Translations: [Supervision of high risk in second trimester ([facility])] Onset: 09-24-2024 Episodic Other complications of (2 sources) Supervision of high risk , unspecified, first trimester; Translations: [Encounter for supervision of high risk in first trimester, antepartum ([facility])] Onset: 05-07-2024 Episodic Other complications of (2 sources) Other specified related conditions, first trimester; Translations: [Other specified related conditions, first trimester ([facility])] Onset: 05-21-2024 Episodic Other complications of (2 sources) Unspecified infection of urinary tract in , first trimester; Translations: [Unspecified infection of urinary tract in , first trimester ([facility])] Onset: 04-18-2024 Episodic Other complications of (1 [...] of ; Translations: [29 weeks gestation of ([facility])] Onset: 10-04-2024 Episodic Residual codes; unclassified (1 source) 27 weeks gestation of ; Translations: [27 weeks gestation of ([facility])] Onset: 09-24-2024 Episodic Residual codes; unclassified (1 [...] Test Name Value Interpretation Reference [facility] Normal [facility] SARS-COV-2 RAPID AG (WIC)on 02-22-2025 SARS-CoV-2 (COVID-19) RNA SUMIT+probe Ql (Unsp spec) Not detected Normal NOT DETECTED [facility] Comment on above: Result Comment: [...] #### C COVAG #### [place] [address] NARRATIVE This test was perfor med using lateral flow immunoassay. This test does not differentiate between SARS-CoV and SARS-CoV2. Normal [facility] Comment on above: Performed By: #### C COVAG #### [place] [address] POCT INFLUENZA, A Bon 2024 FLUAV RNA SUMIT+probe Ql (Unsp spec) Negative Negative, Not Tested, Invalid, Not Detected [facility] FLUBV RNA SUMIT+probe Ql (Unsp spec) Negative Negative, Not Tested, Invalid, Not Detected [facility] Interpretation and review of laboratory results Normal [facility] SARS-COV-2 RAPID AGon 2024 SARS-CoV-2 (COVID-19) RNA SUMIT+probe Ql (Unsp spec) [id number] Normal NOT DETECTED [facility] Comment on above: Performed By: #### C OVAG #### [place] [address] NARRATIVE This test was perfor med using lateral flow immunoassay. This test does not differentiate between SARS-CoV and SARS-CoV2. Normal [facility] Comment on above: Performed By: #### C OVAG #### [place] [address] SARS-COV-2 RAPID ANTIGENon 0 02-21-2025 SARS-CoV-2 (COVID-19) RNA SUMIT+probe Ql (Unsp spec) This test was performed using lateral flow immunoassay. This test does not differentiate between SARS-CoV and SARS-CoV2. [facility] SARS-CoV-2 (COVID-19) RNA NA A+probe Ql (Unsp spec)on 02-21-2025 SARS-CoV-2 (COVID-19) Ag IA.rapid Ql (Resp) [id number] NOT DETECTED [facility] CNOVon 02-19-2025 CNOV Normal [facility] UA DIP,URINE HCG (POC)on Beta HCG ( test) Ql (U) Negative Negative [facility] Chemical Dependency Nurse (POCT) Internal QC OK [facility] Location:[facility], [address] [place] [address], [place], [address] [facility] POINT OF CARE [facility] CNPNon 02-01-2025 CNPN Normal [facility] CBCon 01-29-2025 ABSOLUTE BAS 0.1 10*3/uL Normal 0.0-0.2 [facility] Comment on above: Performed By: #### C MPF, ACBC #### Testing performed at [place] [id number] ABSOLUTE EOS 0.1 10*3/uL Normal 0.0-0.7 [facility] Comment on above: Performed By: #### C MPF, ACBC #### Testing performed at [address] [place] [address] ABSOLUTE NEUTROPHIL COUNT 6.2 10*3/uL Normal 1.4-6.5 [facility] Comment on above: Performed By: #### C MPF, ACBC #### Testing performed at [address] [place] [address] Basophils/100 WBC (Bld) 0.7 % Normal 0.0-2.0 [facility] Comment on above: Performed By: #### C MPF, ACBC #### Testing performed at [address] [place] [address] DTYPE AUTO DIFF Normal [facility] Comment on above: Performed By: #### C MPF, ACBC #### Testing performed at [address] [place] [address] Eosinophils/100 WBC (Bld) 1.4 % Normal 0.0-11.0 [facility] Comment on above: Performed By: #### C MPF, ACBC #### Testing performed at [address] [place] [address] Lymphocytes (Bld) [#/Vol] 2.1 10*3/uL Normal 1.2-3.4 [facility] Comment on above: Performed By: #### C MPF, ACBC #### Testing performed at [address] [place] [address] Lymphocytes/100 WBC (Bld) 23.1 % Normal 20.0-55.0 [facility] Comment on above: Performed By: #### C MPF, ACBC #### Testing performed at [address] [place] [address] Monocytes (Bld) [#/Vol] 0.5 10*3/uL Normal 0.0-0.7 [facility] Comment on above: Performed By: #### C MPF, ACBC #### Testing performed at [address] [place] [address] Monocytes/100 WBC (Bld) 5.8 % Normal 0.0-10.0 [facility] Comment on above: Performed By: #### C MPF, ACBC #### Testing performed at [address] [address] Neutrophils/100 WBC (Bld) 69.0 % Normal 37.0-75.0 [facility] Comment on above: Performed By: #### C MPF, ACBC #### Testing performed at [address] [address] Erythrocyte distribution width (RBC) [Ratio] 14.0 % Normal 11.5-14.5 [facility] Comment on above: Performed By: #### C MPF, ACBC #### Testing performed at [address] [address] Hematocrit (Bld) [Volume fraction] 41.1 % Normal 36.0-48.0 [facility] Comment on above: Performed By: #### C MPF, ACBC #### Testing performed at [address] [address] Hemoglobin (Bld) [Mass/Vol] 14.2 g/dL Normal 12.0-16.0 [facility] Comment on above: Performed By: #### C MPF, ACBC #### Testing performed at [address] [address] MCH (RBC) [Entitic mass] 28.3 pg Normal 26.0-35.0 [facility] Comment on above: Performed By: #### C MPF, ACBC #### Testing performed at [address] [address] MCHC (RBC) [Mass/Vol] 34.5 g/dL Normal 27.0-37.0 [facility] Comment on above: Performed By: #### C MPF, ACBC #### Testing performed at [address] [address] MCV (RBC) [Entitic vol] 82.1 fL Normal 80.0-100.0 [facility] Comment on above: Performed By: #### C MPF, ACBC #### Testing performed at [address] [address] Platelet mean volume (Bld) [Entitic vol] 9.8 fL Normal 7.4-11.0 [facility] Comment on above: Performed By: #### C MPF, ACBC #### Testing performed at [address] [address] Platelets (Bld) [#/Vol] 307 10*3/uL Normal 130-400 [facility] Comment on above: Performed By: #### C MPF, ACBC #### Testing performed at [address] [address] RBC (Bld) [#/Vol] 5.01 10*6/uL Normal 4.0-5.4 [facility] Comment on above: Performed By: #### C MPF, ACBC #### Testing performed at [address] [address] WBC (Bld) [#/Vol] 9.1 10*3/uL Normal 3.6-11.0 [facility] Comment on above: Performed By: #### C MPF, ACBC #### Testing performed at [address] [address] CMP FASTINGon 01-29-2025 A:G RATIO 1.4 RATIO Normal [facility] Comment on above: Performed By: #### C MPF, ACBC #### Testing performed at [address] [address] Albumin [Mass/Vol] 4.8 g/dL Normal 3.5-5.0 [facility] Comment on above: Performed By: #### C MPF, ACBC #### Testing performed at [address] [address] ALP [Catalytic activity/Vol] 107 U/L Normal 38-126 [facility] Comment on above: Performed By: #### C MPF, ACBC #### Testing performed at [address] [address] ALT [Catalytic activity/Vol] 59 U/L High <35 [facility] Comment on above: Performed By: #### C MPF, ACBC #### Testing performed at [address] [address] AST [Catalytic activity/Vol] 30 U/L Normal 14-36 [facility] Comment on above: Performed By: #### C MPF, ACBC #### Testing performed at [address] [address] Bilirubin [Mass/Vol] 0.9 mg/dL Normal 0.2-1.3 [facility] Comment on above: Performed By: #### C MPF, ACBC #### Testing performed at [address] [address] Calcium [Mass/Vol] 9.8 mg/dL Normal 8.4-10.2 [facility] Comment on above: Performed By: #### C MPF, ACBC #### Testing performed at [address] [address] Chloride [Moles/Vol] 105 mmol/L Normal 98-107 [facility] Comment on above: Result Comment: Carson barker note: Triglyceride levels of 600mg/dL or higher may positively bias chloride results by approximately 2.1 mmol Performed By: #### C MPF, ACBC #### Testing performed at [address] [address] CO2 [Moles/Vol] 15 mmol/L Critically low 22-30 [facility] Comment on above: Result Comment: Resu lt called to read back by: Maricel OTTO 01/29/2025 @ 21:45 by [facility] Performed By: #### C MPF, ACBC #### Testing performed at [address] [address] Creatinine [Mass/Vol] 0.60 mg/dL Low 0.70-1.20 [facility] Comment on above: Performed By: #### C MPF, ACBC #### Testing performed at [address] [place] [address] GFR Information Average GFR for 30-3 9 years old = 107. Normal [facility] Comment on above: Result Comment: [employer] andres Kidney disease, GFR = <60. Kidney failure, GFR = <15. The GFR estimate is not adjusted for extreme body surface area or acute process, nor has it been validated for women or ethnic groups other than and . MDRD Equation Performed By: #### C MPF, ACBC #### Testing performed at [address] [address] GFR/1.73 sq M.predicted MDRD (S/P/Bld) [Vol rate/Area] 125 mL/min/{1.73_m2} Normal [facility] Comment on above: Performed By: #### C MPF, ACBC #### Testing performed at [address] [address] Glucose [Mass/Vol] 189 mg/dL High 70-100 [facility] Comment on above: Result Comment: NORMAL <100 mg/dL PREDIABETES 101-126 mg/dL DIABETES 126 mg/dL or higher Performed By: #### C MPF, ACBC #### Testing performed at [address] [address] Potassium [Moles/Vol] 3.5 mmol/L Normal 3.5-5.1 [facility] Comment on above: Performed By: #### C MPF, ACBC #### Testing performed at [address] [address] Protein [Mass/Vol] 8.2 g/dL Normal 6.3-8.2 [facility] Comment on above: Performed By: #### C MPF, ACBC #### Testing performed at [address] [address] Sodium [Moles/Vol] 139 mmol/L Normal 137-145 [facility] Comment on above: Performed By: #### C MPF, ACBC #### Testing performed at [address] [address] Urea nitrogen [Mass/Vol] 7 mg/dL Normal 7-20 [facility] Comment on above: Performed By: #### C MPF, ACBC #### Testing performed at [address] [address] TROPONIN I, HIGH SENSITIVITY on 01-29-2025 TROPONIN I, HIGH SENSITIVITY 3 pg/mL Normal 0-12 [facility] Comment on above: Result Comment: Indeterminant: >12 to 100 pg/mL female >20 to 100 pg/mL male Indicative of myocardial injury. Serial sampling is recommended, a change of greater than or equal to 20 pg/mL is indicative of acute coronary syndrome. Performed By: #### T ROHS #### Testing performed at [facility] [address] [place] [address] CNOVon 01-28-2025 CNOV Normal [facility] GLUCOSE, BLOOD (POC)on 01-28 Glucose [Mass/Vol] 170 mg/dL Abnormal 74 - 99 mg/dL [facility] Comment on above: Glu2: Result Confirm ed Location:[address], [place], [address] The Accu-Chek Inform II glucose meter has [...] Interpretation and review of laboratory results Abnormal [facility] CNPNon 2025 CNPN Normal [facility] Absolute lymphocyte countOrd ered By: Remus Ungdevin on 01-26-2025 Lymphocytes Auto (Unsp spec) [#/Vol] 1.75 10*3/uL 0.83-4.51 [facility] Absolute neutrophil countOrd ered By: Remus Ungur on 01-26-2025 Neutrophils (Bld) [#/Vol] 7.9 10*3/uL High 2.0-7.7 [facility] Anion gap in Serum or Plasma Ordered By: Remus Ungur on 01-26-2025 Anion gap [Moles/Vol] 19 mmol/L High 5-15 [facility] Automated lymphocyte count a s percentage of total leukocytesOrdered By: Remus Ungur on 01-26-2025 Lymphocytes/100 WBC Auto (Unsp spec) 16.9 % Low 19-41 [facility] BUN/creatinine ratioOrdered By: Remus Ungur on 01-26-2025 Urea nitrogen/Creatinine [Mass ratio] 10.6 mg/mg 10-20 [facility] Basophil percentageOrdered B y: Remus Ungur on 01-26-2025 Basophils/100 WBC (Bld) 0.5 % 0-1 [facility] Bilirubin Test strip Ql (U)O rdered By: Shelia Ortega on 01-26-2025 Bilirubin Ql (U) Negative Negative [facility] Bilirubin, totalOrdered By: Shelia Ortega on 01-26-2025 Bilirubin [Mass/Vol] 0.51 mg/dL 0.00-1.30 [facility] CBC W/Diff, Automatedon 01-08 Absolute Lymph 1.75 X10 3/uL Normal 0.83-4.51 [facility] Comment on above: Performed By: #### Jo KWON, L100.0100 #### [facility] [address] [place], [address] Absolute Neut 7.9 X10 3/uL High 2.0-7.7 [facility] Comment on above: Performed By: #### Jo KWON, L100.0100 #### [facility] [address] [place], [address] Basophils/100 WBC (Bld) 0.5 % Normal 0-1 [facility] Comment on above: Performed By: #### Jo KWON, L100.0100 #### [facility] [address] [place], [address] Eosinophils/100 WBC (Bld) 0.8 % Normal 0-5 [facility] Comment on above: Performed By: #### Jo KWON, L100.0100 #### [facility] [address] [place], [address] Erythrocyte distribution width (RBC) [Ratio] 12.6 % Normal 11.6-14.6 [facility] Comment on above: Performed By: #### Jo KWON, L100.0100 #### [facility] [address] [place], [address] Hematocrit (Bld) [Volume fraction] 37.0 % Normal 37-47 [facility] Comment on above: Performed By: #### Jo KWON, L100.0100 #### [facility] [address] [place], [address] Hemoglobin (Bld) [Mass/Vol] 12.7 g/dL Normal 12.0-15.0 [facility] Comment on above: Performed By: #### Jo KWON, L100.0100 #### [facility] [address] [place], [address] IG% 0.300 Normal 0.0-0.9 [facility] Comment on above: Result Comment: IG% - Immature Granulocytes (promyelocytes, myelocytes and metamyelocytes) > 1% indicates that a LEFT SHIFT is Present. Performed By: #### Jo KWON, L100.0100 #### [facility] [address] [place], [address] Lymphocytes/100 WBC (Bld) 16.9 % Low 19-41 [facility] Comment on above: Performed By: #### Jo KWON, L100.0100 #### [facility] [address] [place], [address] MCH (RBC) [Entitic mass] 28.6 pg Normal 27.0-32.0 [facility] Comment on above: Performed By: #### Jo KWON, L100.0100 #### [facility] [address] [place], [address] MCHC (RBC) [Mass/Vol] 34.3 g/dL Normal 32-36 [facility] Comment on above: Performed By: #### Jo KWON, L100.0100 #### [facility] [address] [place], [address] MCV (RBC) [Entitic vol] 83.3 fL Normal 81-99 [facility] Comment on above: Performed By: #### Jo KWON, L100.0100 #### [facility] [address] [place], [address] Monocytes/100 WBC (Bld) 5.3 % Normal 0-10 [facility] Comment on above: Performed By: #### Jo KWON, L100.0100 #### [facility] [address] [place], [address] Neutrophils/100 WBC (Bld) 76.2 % High 47-70 [facility] Comment on above: Performed By: #### Jo KWON, L100.0100 #### [facility] [address] [place], [address] Nucleated RBC (Bld) [#/Vol] 0 10*3/uL Normal 0-5 [facility] Comment on above: Performed By: #### Jo KWON, L100.0100 #### [facility] [address] [place], [address] Platelet mean volume (Bld) [Entitic vol] 9.6 fL Normal 6.2-12.0 [facility] Comment on above: Performed By: #### Jo KWON, L100.0100 #### [facility] [address] [place], [address] Platelets (Bld) [#/Vol] 335 10*3/uL Normal 150-450 [facility] Comment on above: Performed By: #### Jo KWON, L100.0100 #### [facility] [address] [place], [address] RBC (Bld) [#/Vol] 4.44 10*6/uL Normal 4.2-5.4 [facility] Comment on above: Performed By: #### Jo KWON, L100.0100 #### [facility] [address] [place], [address] RDW SD 38.0 fl Normal 35.1-43.9 [facility] Comment on above: Performed By: #### Jo KWON, L100.0100 #### [facility] [address] [place], [address] WBC (Bld) [#/Vol] 10.3 10*3/uL Normal 4.4-11.0 [facility] Comment on above: Performed By: #### B TS, L100.0100 #### [facility] [address] [place], [address] Carbon dioxide, total [Moles /volume] in Central venous bloodOrdered By: Shelia Ortega on 01-26-2025 CO2 [Moles/Vol] 17.5 mmol/L Low 21.0-32.0 [facility] Chloride assayOrdered By: Re teddy Ortega on 01-26-2025 Chloride [Moles/Vol] 101 mmol/L 98-108 [facility] Comprehensive Metabolic Prof ilon 01-26-2025 Albumin [Mass/Vol] 4.2 g/dL Normal 3.5-5.0 [facility] Comment on above: Performed By: #### B SHYANN, L100.0100 #### [facility] [address] [place], [address] Albumin/Globulin [Mass ratio] 1.3 {ratio} Normal 0.9-2.4 [facility] Comment on above: Performed By: #### B SHYANN, L100.0100 #### [facility] [address] [place], [address] ALK PHOS 99 U/L Normal 35-104 [facility] Comment on above: Performed By: #### B SHYANN, L100.0100 #### [facility] [address] [place], [address] ALT [Catalytic activity/Vol] 44 U/L High <=34 [facility] Comment on above: Performed By: #### B SHYANN, L100.0100 #### [facility] [address] [place], [address] AST [Catalytic activity/Vol] 25 U/L Normal <=31 [facility] Comment on above: Result Comment: Hemo lysis present, Results??could be affected. ?? Performed By: #### Jo KWON, L100.0100 #### [facility] [address] [place], [address] Bilirubin [Mass/Vol] 0.51 mg/dL Normal 0.00-1.30 [facility] Comment on above: Performed By: #### Jo KWON, L100.0100 #### [facility] [address] [place], [address] BUN/CRE 10.6 RATIO Normal 10-20 [facility] Comment on above: Performed By: #### Jo KWON, L100.0100 #### [facility] [address] [place], [address] Calcium [Mass/Vol] 9.4 mg/dL Normal 7.6-11.0 [facility] Comment on above: Performed By: #### Jo KWON, L100.0100 #### [facility] [address] [place], [address] Chloride [Moles/Vol] 101 mmol/L Normal 98-108 [facility] Comment on above: Performed By: #### Jo KWON, L100.0100 #### [facility] [address] [place], [address] CO2 [Moles/Vol] 17.5 mmol/L Low 21.0-32.0 [facility] Comment on above: Performed By: #### Jo KWON, L100.0100 #### [facility] [address] [place], [address] Creatinine [Mass/Vol] 0.56 mg/dL Low 0.70-1.20 [facility] Comment on above: Performed By: #### Jo KWON, L100.0100 #### [facility] [address] [place], [address] ECRCL 153.13 ml/min Normal 50-250 [facility] Comment on above: Performed By: #### Jo KWON, L100.0100 #### [facility] [address] [place], [address] GAP 19 High 5-15 [facility] Comment on above: Performed By: #### Jo KWON, L100.0100 #### [facility] [address] [place], [address] GFR/1.73 sq M.predicted among non-blacks MDRD (S/P/Bld) [Vol rate/Area] 127 mL/min/{1.73_m2} Normal >60 [facility] Comment on above: Result Comment: mL/m in/1.73m2 CKD-EPI Creatinine Equation (2020) Performed By: #### Jo KWON, L100.0100 #### [facility] [address] [place], [address] Globulin (S) [Mass/Vol] 3.3 g/dL Normal 2.2-4.2 [facility] Comment on above: Performed By: #### Jo KWON, L100.0100 #### [facility] [address] [place], [address] Glucose [Mass/Vol] 198 mg/dL High 70-99 [facility] Comment on above: Performed By: #### Jo KWON, L100.0100 #### [facility] [address] [place], [address] Potassium [Moles/Vol] 3.6 mmol/L Normal 3.3-5.1 [facility] Comment on above: Result Comment: Hemo lysis present, Results??could be affected. ?? Performed By: #### Jo KWON, L100.0100 #### [facility] [address] [place], [address] Sodium [Moles/Vol] 137 mmol/L Normal 133-145 [facility] Comment on above: Performed By: #### B TS, L100.0100 #### [facility] [address] [place], [place], [address] T PROT 7.5 g/dL Normal 5.9-8.4 [facility] Comment on above: Performed By: #### B TS, L100.0100 #### [facility] [address] [place], [address] Urea nitrogen [Mass/Vol] 6 mg/dL Normal 4-19 [facility] Comment on above: Performed By: #### B TS, L100.0100 #### [facility] [address] [place], [address] Emergency Department Summary on 01-26-2025 Emergency Department Summary [facility] Medical Records Department [address] [place] [address] Emergency Department Summary 01/26/25 MR#: [id number] Acct: [id number] Name: MELISSA BYRNE Rep #: [id number] : 1995 29 From: Shelia Ortega DO [...] [facility] was [facility] .. [facility] Medical History Wears dentures Wears glasses Bipolar [...] ED: Yes (more content not included)... Normal [facility] Eosinophil percentageOrdered By: Shelia Ortega on 01-26-2025 Eosinophils/100 WBC (Bld) 0.8 % 0-5 [facility] Erythrocyte distribution wid th ratioOrdered By: Shelia Ortega on 01-26-2025 Erythrocyte distribution width (RBC) [Ratio] 12.6 % 11.6-14.6 [facility] Erythrocyte distribution wid th standard deviationOrdered By: Shelia Ortega on 01-26-2025 Erythrocyte distribution width (RBC) [Ratio] 38.0 fl 35.1-43.9 [facility] Glomerular filtration rate ( GFR) estimation/1.73 sq m using serum, plasma, or whole bOrdered By: Shelia Ortega on 01-26-2025 GFR/1.73 sq M.predicted among non-blacks MDRD (S/P/Bld) [Vol rate/Area] 127 mL/min/{1.73_m2} >60 [facility] Comment on above: mL/min/1.73m2 CKD-EP I Creatinine Equation (2020) Hematocrit Auto (Bld) [Volum e fraction]Ordered By: Shelia Ortega on 01-26-2025 Hematocrit (Bld) [Volume fraction] 37.0 % 37-47 [facility] Hemoglobin measurementOrdere d By: Shelia Ortega on 01-26-2025 Hemoglobin (Bld) [Mass/Vol] 12.7 g/dL 12.0-15.0 [facility] Immature granulocytes/100 WB C Auto (Bld)Ordered By: Shelia Ortega on 01-26-2025 Immature granulocytes/100 WBC (Bld) 0.300 % 0.0-0.9 [facility] Comment on above: IG% - Immature Granu locytes (promyelocytes, myelocytes and metamyelocytes) > 1% indicates that a LEFT SHIFT is Present. Ketones Test strip Ql (U)Ord ered By: Shelia Ortega on 01-26-2025 Ketones Ql (U) 150 mg/dl Abnormal Negative [facility] Comment on above: CRITICAL VALUE CASILLAS D TO ONIEL [id number]/26/[id number] Daxa Rangel.RESULTS READ BACK BY SAME. Laboratory - Chemistry and C hemistry - challengeOrdered By: Shelia Ortega on 01-26-2025 AST [Catalytic activity/Vol] 25 U/L <32 [facility] Comment on above: Hemolysis present, R esults could be affected. MCV (mean corpuscular volume ) determinationOrdered By: Shelia Oretga on 01-26-2025 MCV (RBC) [Entitic vol] 83.3 fL 81-99 [facility] Mean corpuscular hemoglobin (MCH) determinationOrdered By: Shelia Ortega on 01-26-2025 MCH (RBC) [Entitic mass] 28.6 pg 27.0-32.0 [facility] Mean corpuscular hemoglobin concentration (MCHC) determinationOrdered By: Shelia Ortega on 01-26-2025 MCHC (RBC) [Mass/Vol] 34.3 g/dL 32-36 [facility] Mean platelet volume determi nationOrdered By: Shelia Ortega on 01-26-2025 Platelet mean volume (Bld) [Entitic vol] 9.6 fL 6.2-12.0 [facility] Microscopic analysis of urin e for red blood cells (RBC)Ordered By: Shelia Ortega on 01-26-2025 Microscopic analysis of urine for red blood cells (RBC) 10-25 SEEN /hpf 0-5 [facility] Monocyte percentageOrdered B y: Shelia Ortega on 01-26-2025 Monocytes/100 WBC (Bld) 5.3 % 0-10 [facility] Mucus LM Ql (Urine sed)Order ed By: Shelia Ortega on 01-26-2025 Mucus Ql (Urine sed) 0 SEEN /hpf [facility] Neutrophil percentageOrdered By: Shelia Ortega on 01-26-2025 Neutrophils/100 WBC (Bld) 76.2 % High 47-70 [facility] Nitrite Test strip Ql (U)Ord ered By: Shelia Ortega on 01-26-2025 Nitrite Ql (U) Negative Negative [facility] Nucleated red blood cell per centageOrdered By: Shelia Ortega on 01-26-2025 Nucleated RBC/100 WBC (Bld) [Ratio] 0 % 0-5 [facility] Platelet countOrdered By: Rosina Ortega on 01-26-2025 Platelets (Bld) [#/Vol] 335 10*3/uL 150-450 [facility] Potassium measurement (mass/ volume)Ordered By: Shelia Ortega on 01-26-2025 Potassium (Unsp spec) [Mass/Vol] 3.6 mmol/L 3.3-5.1 [facility] Comment on above: Hemolysis present, R esults could be affected. ,Serum,hCG Quali.on 01-26-2025 HCG, SERUM QUAL Negative Normal [facility] Comment on above: Performed By: #### B TS, L100.0100 #### [facility] [place], [address] Protein Test strip Ql (U)Ord ered By: Shelia Ortega on 01-26-2025 Protein Ql (U) 30 mg/dl High Negative [facility] RBC Auto (Bld) [#/Vol]Ordere d By: Shelia Ortega on 01-26-2025 RBC (Bld) [#/Vol] 4.44 10*6/uL 4.2-5.4 [facility] Serum beta-hCG test, qualita tiveOrdered By: Shelia Ortega on 01-26-2025 Beta HCG ( test) Ql Negative [facility] Serum creatinine measurement (mass/volume)Ordered By: Shelia Ortega on 01-26-2025 Creatinine [Mass/Vol] 0.56 mg/dL Low 0.70-1.20 [facility] Serum globulin measurementOr dered By: Shelia Ortega on 01-26-2025 Globulin (S) [Mass/Vol] 3.3 g/dL 2.2-4.2 [facility] Serum glucose measurement (m ass/volume)Ordered By: Shelia Ortega on 01-26-2025 Glucose [Mass/Vol] 198 mg/dL High 70-99 [facility] Serum or plasma alanine schafer otransferase (ALT) measurementOrdered By: Shelia Ortega on 01-26-2025 ALT [Catalytic activity/Vol] 44 U/L High <35 [facility] Serum or plasma albumin patrick urement (mass/volume)Ordered By: Shelia Ortega on 01-26-2025 Albumin [Mass/Vol] 4.2 g/dL 3.5-5.0 [facility] Serum or plasma albumin/glob ulin mass ratioOrdered By: Shelia Ortega on 01-26-2025 Albumin/Globulin [Mass ratio] 1.3 {ratio} 0.9-2.4 [facility] Serum or plasma alkaline anaid sphatase measurementOrdered By: Shelia Ortega on 01-26-2025 ALP [Catalytic activity/Vol] 99 U/L 35-104 [facility] Serum or plasma calcium patrick urement (mass/volume)Ordered By: Shelia Ortega on 01-26-2025 Calcium [Mass/Vol] 9.4 mg/dL 7.6-11.0 [facility] Serum or plasma urea nitroge n measurement (mass/volume)Ordered By: Remus Ungdevin on 01-26-2025 Urea nitrogen [Mass/Vol] 6 mg/dL 4-19 [facility] Sodium levelOrdered By: Remu s Ungur on 01-26-2025 Sodium [Moles/Vol] 137 mmol/L 133-145 [facility] Squamous epithelial cells de tection in urine sediment by light microscopyOrdered By: Remus Ungdevin on 01-26-2025 Epithelial cells.squamous LM Ql (Urine sed) 0-5 SEEN /hpf - [facility] Total proteinOrdered By: Rem us Ungur on 01-26-2025 Protein [Mass/Vol] 7.5 g/dL 5.9-8.4 [facility] Urinalysis, Completeon 01-26 EPI,SQUAMOUS 0-5 SEEN Normal - [facility] Comment on above: Order Comment: SAE CTOR TO SPECIFY Performed By: #### Jo KWON, L100.0100 #### [facility] [address] [place], [address] WBC 0-5 SEEN Normal 0-5 [facility] Comment on above: Order Comment: SAE CTOR TO SPECIFY Performed By: #### Jo KWON, L100.0100 #### [facility] [address] [place], [address] RBC 10-25 SEEN Normal 0-5 [facility] Comment on above: Order Comment: SAE CTOR TO SPECIFY Performed By: #### Jo KWON, L100.0100 #### [facility] [address] [place], [address] BACTERIA 0 SEEN Normal None Seen [facility] Comment on above: Order Comment: SAE CTOR TO SPECIFY Performed By: #### Jo KWON, L100.0100 #### [facility] [address] [place], [address] Mucus Ql (Urine sed) 0 SEEN Normal [facility] Comment on above: Order Comment: COLLE CTOR TO SPECIFY Performed By: #### B TS, L100.0100 #### [facility] [address] [place], [address] Urine clarityOrdered By: Rem us Ortega on 01-26-2025 Clarity (U) Sl. Cloudy Clear [facility] Urine color determinationOrd ered By: Shelia Ortega on 01-26-2025 Color (U) Yellow Yellow [facility] Urine glucose detectionOrder ed By: Shelia Ortega on 01-26-2025 Glucose Ql (U) Normal mg/dl Normal [facility] Urine leukocyte esterase det ection by dipstickOrdered By: Shelia Ortega on 01-26-2025 Leukocyte esterase Test strip Ql (U) 25 /ul High Negative [facility] Urine pHOrdered By: Shelia Un gur on 01-26-2025 pH (U) 6.0 [pH] 5.0 - 8.0 [facility] Urine sediment bacteria coun t by microscopy (number/high power field)Ordered By: Shelia Ortega on 01-26-2025 Bacteria LM.HPF (Urine sed) [#/Area] 0 /[HPF] None Seen [facility] Urine specific gravity measu rementOrdered By: Shelia Ortega on 01-26-2025 Specific gravity (U) [Rel density] 1.025 1.002-1.030 [facility] Urine urobilinogen measureme ntOrdered By: Shelia Ortega on 01-26-2025 Urobilinogen Ql (U) Normal mg/dl Normal [facility] White blood cell (WBC) count Ordered By: Shelia Ortega on 01-26-2025 WBC (Bld) [#/Vol] 10.3 10*3/uL 4.4-11.0 [facility] White blood cell countOrdere d By: Shelia Ortega on 01-26-2025 White blood cell count 0-5 SEEN /hpf 0-5 [facility] H AND P Exam - OB/GYNon 01-07 H&P Exam - AIR TWISTER WINDER [facility] Medical Records Department [address] [place] [address] H P Exam - AIR TWISTER WINDER 01/25/25 1317 MR#: [id number] Acct: [id number] Name: MELISSA BYRNE Rep #: [id number] : 1995 29 From: Whit Patel MD PCP: Dr. Jamari Byrne MD Status:PRE [facility] Location: [facility] History and Physical Date of [...] PAST MEDICAL HISTORY Diagnosis Date ??? Asthma ([facility]) ??? Bipolar ??? H/O macrosomia in infant in prior , currently ([facility]) 05/07/2024 ??? Herpes simplex type 2 (HSV-2) infection affecting , antepartum, unspecified trimester ([facility]) 04/19/2024 ??? Hyperlipidemia ??? LGA (large for gestational age) infant ([facility]) 12/23/2016 12/23/16 - >95% ??? Polyhydramnios ([facility]) 01/01/2017 ??? Pre-existing type 2 diabetes mellitus in in first trimester ([facility]) 06/15/2024 First trimester Hgb A1c 10.5%, now follows with Dr. Guillermo ??? Recurrent UTI ??? Type 2 diabetes mellitus ([facility]) PAST SURGICAL HISTORY PAST SURGICAL HISTORY Procedure [...] a day. 60 tablet 3 ??? Insulin [place], Disposable, (BD ULTRAFINE III MINI PEN) 31 gauge x 3/16 4 TIMES/DAY 200 each 3 ??? lancets (Elite Form DELICA PLUS LANCET) 30 gauge Use with blood glucose test four times a day. Insulin Dep? Yes 100 Each 11 ??? blood sugar diagnostic (Elite Form VERIO TEST STRIPS) test strip Use as instructed - TEST BLOOD SUGARS 4 TIMES DAILY 150 Each 11 ??? Blood-Glucose Meter (Elite Form VERIO FLEX METER) Use to check blood [...] on risks/bene (more content not included)... Normal [facility] CBC W Auto Differential pane l (Bld)on 01-24-2025 Basophils (Bld) [#/Vol] 0.05 10*3/uL [facility] Basophils/100 WBC (Bld) 0.6 % 0.0 - 2.0 % [facility] Eosinophils (Bld) [#/Vol] 0.09 10*3/uL [facility] Eosinophils/100 WBC (Bld) 1.1 % 0.0 - 6.0 % [facility] Erythrocyte distribution width (RBC) [Ratio] 12.6 % 11.5 - 14.5 % [facility] Hematocrit (Bld) [Volume fraction] 37.1 % 36.0 - 46.0 % [facility] Hemoglobin (Bld) [Mass/Vol] 12.6 g/dL 12.0 - 16.0 g/dL [facility] Immature granulocytes (Bld) [#/Vol] 0.03 10*3/uL [facility] Immature granulocytes/100 WBC (Bld) 0.4 % 0.0 - 0.9 % [facility] Comment on above: Immature Granulocyte Count (IG) includes promyelocytes, myelocytes and metamyelocytes but does not include bands. Percent differential counts (%) should be interpreted in the context of the absolute cell counts (cells/UL). Lymphocytes (Bld) [#/Vol] 1.80 10*3/uL [facility] Lymphocytes/100 WBC (Bld) 21.4 % 13.0 - 44.0 % [facility] MCH (RBC) [Entitic mass] 28.2 pg 26.0 - 34.0 pg [facility] MCHC (RBC) [Mass/Vol] 34.0 g/dL 32.0 - 36.0 g/dL [facility] MCV (RBC) [Entitic vol] 83 fL 80 - 100 fL [facility] Monocytes (Bld) [#/Vol] 0.48 10*3/uL [facility] Monocytes/100 WBC (Bld) 5.7 % 2.0 - 10.0 % [facility] Neutrophils (Bld) [#/Vol] 5.95 10*3/uL [facility] Comment on above: Percent differential counts (%) should be interpreted in the context of the absolute cell counts (cells/uL). Neutrophils/100 WBC (Bld) 70.8 % 40.0 - 80.0 % [facility] Nucleated RBC/100 WBC (Bld) [Ratio] 0.0 % [facility] Platelets (Bld) [#/Vol] 326 10*3/uL [facility] RBC (Bld) [#/Vol] 4.47 10*6/uL [facility] WBC (Bld) [#/Vol] 8.4 10*3/uL [facility] Basophils (Bld) [#/Vol] 0.05 x10*3/uL Normal 0.00-0.10 [facility] Comment on above: Performed By: #### 5 [id number] #### JACQUELYN LOPEZ ([id number]) [facility] ([facility]) [address] [place] [address] Basophils/100 WBC (Bld) 0.6 % Normal 0.0-2.0 [facility] Comment on above: Performed By: #### 5 [id number] #### JACQUELYN LOPEZ ([id number]) [facility] ([facility]) [address] [place] [address] Eosinophils (Bld) [#/Vol] 0.09 x10*3/uL Normal 0.00-0.70 [facility] Comment on above: Performed By: #### 5 [id number] #### JACQUELYN LOPEZ ([id number]) [facility] ([facility]) [address] [place] [address] Eosinophils/100 WBC (Bld) 1.1 % Normal 0.0-6.0 [facility] Comment on above: Performed By: #### 5 [id number] #### JACQUELYN LOPEZ ([id number]) [facility] ([facility]) [address] [place] [address] Erythrocyte distribution width (RBC) [Ratio] 12.6 % Normal 11.5-14.5 [facility] Comment on above: Performed By: #### 5 [id number] #### JACQUELYN LOPEZ ([id number]) [facility] ([facility]) [address] [place] [address] Hematocrit (Bld) [Volume fraction] 37.1 % Normal 36.0-46.0 [facility] [facility] Comment on above: Performed By: #### 5 8077-9 #### JACQUELYN LOPEZ ([id number]) [facility] ([facility]) [address] [place] [address] 81979 Hemoglobin (Bld) [Mass/Vol] 12.6 g/dL Normal 12.0-16.0 [facility] Comment on above: Performed By: #### 5 8077-9 #### JACQUELYN LOPEZ ([id number]) [facility] ([facility]) [address] [place] [address] 13349 Immature granulocytes (Bld) [#/Vol] 0.03 x10*3/uL Normal 0.00-0.70 [facility] Comment on above: Performed By: #### 5 8077-9 #### JACQUELYN LOPEZ ([id number]) [facility] ([facility]) [address] [place] [address] 89933 Immature granulocytes/100 WBC (Bld) 0.4 % Normal 0.0-0.9 [facility] Comment on above: Result Comment: Kaela ture Granulocyte Count (IG) includes promyelocytes, myelocytes and metamyelocytes but does not include bands. Percent differential counts (%) should be interpreted in the context of the absolute cell counts (cells/UL). Performed By: #### 5 8077-9 #### JACQUELYN LOPEZ ([id number]) [facility] ([facility]) [address] [place] [address] 63410 Lymphocytes (Bld) [#/Vol] 1.80 x10*3/uL Normal 1.20-4.80 [facility] Comment on above: Performed By: #### 5 8077-9 #### JACQUELYN LOPEZ ([id number]) [facility] ([facility]) [address] [place] [address] 75119 Lymphocytes/100 WBC (Bld) 21.4 % Normal 13.0-44.0 [facility] Comment on above: Performed By: #### 5 8077-9 #### JACQUELYN LOPEZ ([id number]) [facility] ([facility]) [address] [place] [address] 92111 MCH (RBC) [Entitic mass] 28.2 pg Normal 26.0-34.0 [facility] Comment on above: Performed By: #### 5 8077-9 #### JACQUELYN LOPEZ ([id number]) [facility] ([facility]) [address] [place] [address] 38622 MCHC (RBC) [Mass/Vol] 34.0 g/dL Normal 32.0-36.0 [facility] Comment on above: Performed By: #### 5 8077-9 #### JACQUELYN LOPEZ ([id number]) [facility] ([facility]) [address] [place] [address] 09555 MCV (RBC) [Entitic vol] 83 fL Normal 80-100 [facility] Comment on above: Performed By: #### 5 8077-9 #### JACQUELYN LOPEZ ([id number]) [facility] ([facility]) [address] [place] [address] 48015 Monocytes (Bld) [#/Vol] 0.48 x10*3/uL Normal 0.10-1.00 [facility] Comment on above: Performed By: #### 5 8077-9 #### JACQUELYN LOPEZ ([id number]) [facility] ([facility]) [address] [place] [address] 12762 Monocytes/100 WBC (Bld) 5.7 % Normal 2.0-10.0 [facility] Comment on above: Performed By: #### 5 8077-9 #### JACQUELYN LOPEZ ([id number]) [facility] ([facility]) [address] [place] [address] 02400 Neutrophils (Bld) [#/Vol] 5.95 x10*3/uL Normal 1.20-7.70 [facility] Comment on above: Result Comment: Perc ent differential counts (%) should be interpreted in the context of the absolute cell counts (cells/uL). Performed By: #### 5 8077-9 #### JACQUELYN LOPEZ ([id number]) [facility] ([facility]) [address] [place] [address] 95297 Neutrophils/100 WBC (Bld) 70.8 % Normal 40.0-80.0 [facility] Comment on above: Performed By: #### 5 8077-9 #### JACQUELYN LOPEZ ([id number]) [facility] ([facility]) [address] [place] [address] 78213 Nucleated RBC/100 WBC (Bld) [Ratio] 0.0 /100 WBCs Normal 0.0-0.0 [facility] Comment on above: Performed By: #### 5 8077-9 #### JACQUELYN LOPEZ ([id number]) [facility] ([facility]) [address] [place] [address] 73399 Platelets (Bld) [#/Vol] 326 x10*3/uL Normal 150-450 [facility] Comment on above: Performed By: #### 5 8077-9 #### JACQUELYN LOPEZ ([id number]) [facility] ([facility]) [address] [place] [address] 97399 RBC (Bld) [#/Vol] 4.47 x10*6/uL Normal 4.00-5.20 [facility] Comment on above: Performed By: #### 5 8077-9 #### JACQUELYN LOPEZ ([id number]) [facility] ([facility]) [address] [place] [address] WBC (Bld) [#/Vol] 8.4 x10*3/uL Normal 4.4-11.3 [facility] Comment on above: Performed By: #### 5 8077-9 #### JACQUELYN LOPEZ ([id number]) [facility] ([facility]) [address] [place] [address] Choriogonadotropin.beta subu niton 01-24-2025 HCG.beta subunit Qn m[IU]/mL Normal <5 [facility] Comment on above: Order Comment: Total HCG measurement is performed using the [place] Access Immunoassay which detects intact HCG and free beta HCG subunit. This test is not indicated for use as a tumor marker. HCG testing is performed using a different test methodology at [facility] than other [facility]. Direct result comparison should only be made within the same method. Performed By: #### 5 3315-8 #### JACQUELYN LOPEZ ([id number]) [facility] ([facility]) [address] [place], [place] [id number] Comprehensive metabolic 2000 panelon 01-24-2025 Albumin BCP dye [Mass/Vol] 4.2 g/dL 3.4 - 5.0 g/dL [facility] ALP [Catalytic activity/Vol] 81 U/L 33 - 110 U/L [facility] ALT With P-5'-P [Catalytic activity/Vol] 39 U/L 7 - 45 U/L [facility] Comment on above: Patients treated wit h Sulfasalazine may generate falsely decreased results for ALT. Anion gap [Moles/Vol] 13 mmol/L 10 - 2 0 mmol/L [facility] AST With P-5'-P [Catalytic activity/Vol] 19 U/L 9 - 39 U/L [facility] Bilirubin [Mass/Vol] 0.7 mg/dL 0.0 - 1 .2 mg/dL [facility] Calcium [Mass/Vol] 8.8 mg/dL 8.6 - 10. 3 mg/dL [facility] Chloride [Moles/Vol] 105 mmol/L 98 - 10 7 mmol/L [facility] CO2 [Moles/Vol] 23 mmol/L 21 - 32 mmol/L [facility] Creatinine [Mass/Vol] 0.46 mg/dL Low 0.50 - 1.05 mg/dL [facility] eGFR - PINF [facility] Comment on above: Calculations of ascencion mated GFR are performed using the 2020 CKD-EPI Study Refit equation without the race variable for the IDMS-Traceable creatinine methods. https://jasn.asnjournals.org/content//ASN.771968 5984 Glucose [Mass/Vol] 199 mg/dL High 74 - 99 mg/dL [facility] Potassium [Moles/Vol] 3.5 mmol/L 3.5 - 5.3 mmol/L [facility] Protein [Mass/Vol] 7.3 g/dL 6.4 - 8.2 g/dL [facility] Sodium [Moles/Vol] 137 mmol/L 136 - 145 mmol/L [facility] Urea nitrogen [Mass/Vol] 6 mg/dL 6 - 23 mg/dL [facility] Albumin BCP dye [Mass/Vol] 4.2 g/dL Normal 3.4-5.0 [facility] Comment on above: Performed By: #### 5 8077-9 #### JACQUELYN LOPEZ ([id number]) [facility] ([facility]) [address] [place] [address] ALP [Catalytic activity/Vol] 81 U/L Normal 33-110 [facility] Comment on above: Performed By: #### 5 8077-9 #### JACQUELYN LOPEZ ([id number]) [facility] ([facility]) [address] [place] [address] ALT With P-5'-P [Catalytic activity/Vol] 39 U/L Normal 7-45 [facility] Comment on above: Result Comment: Shantal ents treated with Sulfasalazine may generate falsely decreased results for ALT. Performed By: #### 5 6294-9 #### JACQUELYN LOPEZ ([id number]) [facility] ([facility]) [address] [place] [address] Anion gap [Moles/Vol] 13 mmol/L Normal 10-20 [facility] Comment on above: Performed By: #### 5 8077-9 #### JACQUELYN LOPEZ ([id number]) [facility] ([facility]) [address] [place] [address] 82983 AST With P-5'-P [Catalytic activity/Vol] 19 U/L Normal 9-39 [facility] Comment on above: Performed By: #### 5 8077-9 #### JACQUELYN LOPEZ ([id number]) [facility] ([facility]) [address] [place] [address] 86638 Bilirubin [Mass/Vol] 0.7 mg/dL Normal 0.0-1.2 [facility] Comment on above: Performed By: #### 5 8077-9 #### JACQUELYN LOPEZ ([id number]) [facility] ([facility]) [address] [place] [address] 64652 Calcium [Mass/Vol] 8.8 mg/dL Normal 8.6-10.3 [facility] Comment on above: Performed By: #### 5 8077-9 #### JACQUELYN LOPEZ ([id number]) [facility] ([facility]) [facility] [place] [address] Chloride [Moles/Vol] 105 mmol/L Normal 98-107 [facility] Comment on above: Performed By: #### 5 8077-9 #### JACQUELYN LOPEZ ([id number]) [facility] ([facility]) [address] [place] [address] 90207 CO2 [Moles/Vol] 23 mmol/L Normal 21-32 [facility] Comment on above: Performed By: #### 5 8077-9 #### JACQUELYN LOPEZ ([id number]) [facility] ([facility]) [address] [place] [address] 90691 Creatinine [Mass/Vol] 0.46 mg/dL Low 0.50-1.05 [facility] Comment on above: Performed By: #### 5 8077-9 #### JACQUELYN LOPEZ ([id number]) [facility] ([facility]) [address] [place] [address] 79316 Glomerular filtration rate >90 Normal >60 [facility] Comment on above: Result Comment: Calc ulations of estimated GFR are performed using the 2020 CKD-EPI Study Refit equation without the race variable for the IDMS-Traceable creatinine methods. https://jasn.asnjournals.org/content/early//ASN.460763 1806 Performed By: #### 5 8077-9 #### JACQUELYN LOPEZ ([id number]) [facility] ([facility]) [address] [place] [address] 47244 Glucose [Mass/Vol] 199 mg/dL High 74-99 [facility] Comment on above: Performed By: #### 5 8077-9 #### JACQUELYN LOPEZ ([id number]) [facility] ([facility]) [address] [place] [address] 00900 Potassium [Moles/Vol] 3.5 mmol/L Normal 3.5-5.3 [facility] Comment on above: Performed By: #### 5 8077-9 #### JACQUELYN LOPEZ ([id number]) [facility] ([facility]) [address] [place] [address] 86089 Protein [Mass/Vol] 7.3 g/dL Normal 6.4-8.2 [facility] Comment on above: Performed By: #### 5 8077-9 #### JACQUELYN LOPEZ ([id number]) [facility] ([facility]) [address] [place] [address] 53099 Sodium [Moles/Vol] 137 mmol/L Normal 136-145 [facility] Comment on above: Performed By: #### 5 8077-9 #### JACQUELYN LOPEZ ([id number]) [facility] ([facility]) [address] [place] [address] 51704 Urea nitrogen [Mass/Vol] 6 mg/dL Normal 6-23 [facility] Comment on above: Performed By: #### 5 8077-9 #### JACQUELYN LOPEZ ([id number]) [facility] ([facility]) [address] [place] [address] 00672 D-Dimer, VTE Exclusionon Fibrin D-dimer FEU (PPP) [Mass/Vol] 456 NINF [facility] ECG 12-LEADon 01-24-2025 ECG 12-LEAD Ventricular Rate 102 Atrial Rate 102 P-R Interval 142 QRS Duration 84 Q-T Interval 378 QTC Calculation(Bazett) 492 P Burbank 54 R Burbank 60 T Burbank -17 QRS Count 17 Q Onset 219 P Onset 148 P Offset 196 T Offset 408 QTC Fredericia 451 Diagnosis Sinus tachycardia Nonspecific ST and T wave abnormality Abnormal ECG No previous ECGs available See ED provider note for full interpretation and clinical correlation Confirmed by Angy Lynne ([id number]) on 01/28/2025 3:15:20 PM Normal [facility] Fibrin D-dimeron 01-24-2025 Fibrin D-dimer FEU (PPP) [Mass/Vol] 456 ng/mL FEU Normal <=500 [facility] Comment on above: Order Comment: OVER is reported when the result is greater than the clinically reportable range. Performed By: #### 5 8077-9 #### JACQUELYN LOPEZ ([id number]) [facility] ([facility]) [address] [place] [address] 57551 Fibrin D-dimer FEU (PPP) [Ma ss/Vol]on 01-24-2025 Interpretation and review of laboratory results Normal [facility] The VTE Exclusion D-Dimer assay is reported in ng/mL Fibrinogen Equivalent Units (FEU). Per ton container shipper's instructions for use, a value of less [...] assessment model for DVT or PE exclusion.) [facility] HCG.beta subunit Qnon 2024 Total HCG measuremen t is performed using the [place] Access Immunoassay which detects intact HCG and free beta HCG subunit. This test is not indicated for use as a tumor marker. HCG testing is performed using a different test methodology at [facility] than other [facility]. Direct result comparison should only be made within the same method. [facility] Magnesiumon 01-24-2025 Magnesium [Mass/Vol] 1.93 mg/dL 1.60 - 2.40 mg/dL [facility] Magnesium [Mass/Vol] 1.93 mg/dL Normal 1.60-2.40 [facility] Comment on above: Performed By: #### 5 8077-9 #### VALLADARES JOHN ([id number]) [facility] ([facility]) [address] [place] [address] Magnesium [Mass/Vol]on 01-24 Interpretation and review of laboratory results Normal [facility] No Panel Informationon 01-24 Interpretation and review of laboratory results Normal [facility] Interpretation and review of laboratory results Abnormal [facility] Tropinin I.cardiac panel Hig h sensitivity methodon 01-24-2025 Interpretation and review of laboratory results Normal [facility] Less than 99th percentile of [...] performed using a different testing methodology at [facility] than at other [facility]. Direct result comparisons should only be made within the same method. [facility] Less than 99th percentile of normal [...] performed using a different testing methodology at [facility] Direct result comparisons should only be made within the same method. [facility] Troponin I, High Sensitivity , Initialon 01-24-2025 Tropinin I.cardiac panel High sensitivity method ng/L 0 - 13 ng/L [facility] Troponin I.cardiac panelon 0 01-24-2025 Tropinin I.cardiac panel High sensitivity method <3 Normal 0-13 [facility] Comment on above: Order Comment: Less than [...] is performed using a differenttesting methodology at [facility] than at [facility]. Direct result comparisons should onlybe made within the same method. Performed By: #### 5 3315-8 #### VALLADARES JOHN ([id number]) [facility] ([facility]) [address] [place] [address] Tropinin I.cardiac panel High sensitivity method <3 Normal 0-13 [facility] Comment on above: Order Comment: Less than [...] is performed using a differenttesting methodology at [facility] than at [facility]. Direct result comparisons should onlybe made within the same method. Performed By: #### 5 3315-8 #### VALLADARES JOHN ([id number]) [facility] ([facility]) [address] [place] [address] Troponin, High Sensitivity, 1 Houron 01-24-2025 Tropinin I.cardiac panel High sensitivity method ng/L 0 - 13 ng/L [facility] Urinalysis complete W Reflex Culture panel (U)on 01-24-2025 Appearance (U) Clear Clear [facility] Bacteria Auto (Urine sed) [#/Area] 1+ Abnormal NONE SEEN /HPF [facility] Bilirubin (U) [Mass/Vol] Negative NEGATIVE mg/dL [facility] Color (U) Colorless Abnormal Light-Yellow , Yellow, Dark-Yellow [facility] Epithelial cells.squamous Auto (Urine sed) [#/Area] 1-9 (SPARSE) Reference range not established. /HPF [facility] Glucose Auto test strip (U) [Mass/Vol] Normal Normal mg/dL [facility] Ketones (U) [Mass/Vol] 10 (1+) Abnormal NEGATIVE mg/dL [facility] Leukocyte esterase Auto test strip Ql (U) Negative NEGATIVE [facility] Nitrite Auto test strip Ql (U) Negative NEGATIVE [facility] pH (U) 6.5 [pH] 5.0, 5.5, 6.0, 6.5, 7.0, 7.5, 8.0 [facility] Protein (U) [Mass/Vol] Negative NEGATIVE, 10 (TRACE), 20 (TRACE) mg/dL [facility] RBC (U) [#/Vol] OVER (3+) Abnormal NEGATIVE mg/dL [facility] RBC Auto (Urine sed) [#/Area] >20 Abnormal NONE, 1-2, 3-5 /HPF [facility] Specific gravity (U) [Rel density] 1.004 Abnormal 1.005 - 1.035 [facility] Urobilinogen (U) [Mass/Vol] Normal Normal mg/dL [facility] WBC Auto (Urine sed) [#/Area] 1-5 1-5, NONE /HPF [facility] OVER is reported whe n the result is greater than the clinically reportable range. [facility] Appearance (U) Clear Normal Clear [facility] Comment on above: Order Comment: OVER is reported when the result is greater than the clinically reportable range. Performed By: #### 5 8077-9 #### JACQUELYN LOPEZ ([id number]) [facility] ([facility]) [address] [place] [address] Bacteria Auto (Urine sed) [#/Area] 1+ /HPF Abnormal NONE SEEN [facility] Comment on above: Performed By: #### 5 8077-9 #### JACQUELYN LOPEZ ([id number]) [facility] ([facility]) [address] [place] [address] 11676 Bilirubin (U) [Mass/Vol] Negative Normal NEGATIVE [facility] Comment on above: Order Comment: OVER is reported when the result is greater than the clinically reportable range. Performed By: #### 5 8077-9 #### JACQUELYN LOPEZ ([id number]) [facility] ([facility]) [address] [place] [address] 69410 Color (U) Colorless Normal Light-Yellow , Yellow, Dark-Yellow [facility] Comment on above: Order Comment: OVER is reported when the result is greater than the clinically reportable range. Performed By: #### 5 8077-9 #### JACQUELYN LOPEZ ([id number]) [facility] ([facility]) [address] [place] [address] Epithelial cells.squamous Auto (Urine sed) [#/Area] 1-9 (SPARSE) Normal Reference range not established. [facility] Comment on above: Performed By: #### 5 8077-9 #### JACQUELYN LOPEZ ([id number]) [facility] ([facility]) [address] [place] [address] Glucose Auto test strip (U) [Mass/Vol] Normal Normal Normal [facility] Comment on above: Order Comment: OVER is reported when the result is greater than the clinically reportable range. Performed By: #### 5 8077-9 #### JACQUELYN LOPEZ ([id number]) [facility] ([facility]) [address] [place] [address] Ketones (U) [Mass/Vol] 10 (1+) Abnormal NEGATIVE [facility] Comment on above: Order Comment: OVER is reported when the result is greater than the clinically reportable range. Performed By: #### 5 8077-9 #### JACQUELYN LOPEZ ([id number]) [facility] ([facility]) [address] [place] [address] Leukocyte esterase Auto test strip Ql (U) Negative Normal NEGATIVE [facility] Comment on above: Order Comment: OVER is reported when the result is greater than the clinically reportable range. Performed By: #### 5 8077-9 #### JACQUELYN LOPEZ ([id number]) [facility] ([facility]) [address] [place] [address] Nitrite Auto test strip Ql (U) Negative Normal NEGATIVE [facility] Comment on above: Order Comment: OVER is reported when the result is greater than the clinically reportable range. Performed By: #### 5 8077-9 #### JACQUELYN LOPEZ ([id number]) [facility] ([facility]) [address] [place] [address] pH (U) 6.5 [pH] Normal 5.0, 5.5, 6.0, 6.5, 7.0, 7.5, 8.0 [facility] Comment on above: Order Comment: OVER is reported when the result is greater than the clinically reportable range. Performed By: #### 5 8077-9 #### JACQUELYN LOPEZ ([id number]) [facility] ([facility]) [address] [place] [address] 34719 Protein (U) [Mass/Vol] Negative Normal NEGATIVE, 10 (TRACE), 20 (TRACE) [facility] Comment on above: Order Comment: OVER is reported when the result is greater than the clinically reportable range. Performed By: #### 5 8077-9 #### JACQUELYN LOPEZ ([id number]) [facility] ([facility]) [address] [place] [address] 94680 RBC (U) [#/Vol] OVER (3+) Abnormal NEGATIVE [facility] Comment on above: Order Comment: OVER is reported when the result is greater than the clinically reportable range. Performed By: #### 5 8077-9 #### JACQUELYN LOPEZ ([id number]) [facility] ([facility]) [address] [place] [address] 95005 RBC Auto (Urine sed) [#/Area] >20 Abnormal NONE, 1-2, 3-5 [facility] Comment on above: Performed By: #### 5 8077-9 #### JACQUELYN LOPEZ ([id number]) [facility] ([facility]) [address] [place] [address] 44530 Specific gravity (U) [Rel density] 1.004 Normal 1.005-1.035 [facility] Comment on above: Order Comment: OVER is reported when the result is greater than the clinically reportable range. Performed By: #### 5 8077-9 #### JACQUELYN LOPEZ ([id number]) [facility] ([facility]) [address] [place] [address] 73969 Urobilinogen (U) [Mass/Vol] Normal Normal Normal [facility] Comment on above: Order Comment: OVER is reported when the result is greater than the clinically reportable range. Performed By: #### 5 8077-9 #### JACQUELYN LOPEZ ([id number]) [facility] ([facility]) [address] [place] [address] 29576 WBC Auto (Urine sed) [#/Area] 1-5 Normal 1-5, NONE [facility] Comment on above: Performed By: #### 5 8077-9 #### VALLADARES JOHN ([id number]) [facility] ([facility]) [address] [place] [address] XR CHEST 1 VIEWon 01-24-2025 XR CHEST 1 VIEW Interpreted By: Milly Juarez, STUDY: XR CHEST 1 VIEW; 01/24/2025 2:30 pm INDICATION: CLINICAL INFORMATION: Signs/Symptoms:Chest Pain. COMPARISON: 07/01/2024 ACCESSION NUMBER(S): [id number] ORDERING CLINICIAN: TY SHANNON TECHNIQUE: Portable chest one view. FINDINGS: The cardiac size is indeterminate in view of the AP projection. No infiltrates or effusions are identified. IMPRESSION: No acute pathologic findings are identified. There is no interval change when compared to the previous examination. MACRO: none Signed by: Milly Juarez 01/24/2025 2:56 PM Dictation workstation: [id number] Normal [facility] XR Chest Single viewon 01-24 No acute pathologic findings are identified. There is no interval change when compared to the previous examination. MACRO: none Signed by: Milly Juarez 01/24/2025 2:56 PM Dictation workstation: [id number] MMODAL Interpreted By: Milly Juarez, STUDY: XR CHEST 1 VIEW; 01/24/2025 2:30 pm INDICATION: CLINICAL INFORMATION: Signs/Symptoms:Chest Pain. COMPARISON: 07/01/2024 ACCESSION NUMBER(S): [id number] ORDERING CLINICIAN: TY SHANNON TECHNIQUE: Portable chest one view. FINDINGS: The cardiac size is indeterminate in view of the AP projection. No infiltrates or effusions are identified. [facility] Milly Juarez MD - 01/24/2025 Interpreted By: Milly Juarez, STUDY: XR CHEST 1 VIEW; 01/24/2025 2:30 pm INDICATION: CLINICAL INFORMATION: Signs/Symptoms:Chest Pain. COMPARISON: 07/01/2024 ACCESSION NUMBER(S): [id number] ORDERING CLINICIAN: TY SHANNON TECHNIQUE: Portable chest one view. FINDINGS: The cardiac size is indeterminate in view of the AP projection. No infiltrates or effusions are identified. IMPRESSION: No acute pathologic findings are identified. There is no interval change when compared to the previous examination. MACRO: none Signed by: Milly Juarez 01/24/2025 2:56 PM Dictation workstation: [id number] [facility] Work Phone: Radiology Study observation (narrative) [facility] Work Phone: XR Chest Single viewOrdered By: Milly Juarez on 01-24-2025 [facility] Work Phone: hCG, quantitative, on 01-24-2025 HCG.beta subunit Qn [facility] Absolute lymphocyte countOrd ered By: Ian Rocha on 01-23-2025 Lymphocytes Auto (Unsp spec) [#/Vol] 2.24 10*3/uL 0.83-4.51 [facility] Absolute neutrophil countOrd ered By: Ian Rocha on 01-23-2025 Neutrophils (Bld) [#/Vol] 4.6 10*3/uL 2.0-7.7 [facility] Anion gap in Serum or Plasma Ordered By: Ian Rocha on 01-23-2025 Anion gap [Moles/Vol] 14 mmol/L 5-15 [facility] Automated lymphocyte count a s percentage of total leukocytesOrdered By: Ian Rocha on 01-23-2025 Lymphocytes/100 WBC Auto (Unsp spec) 29.4 % 19-41 [facility] BUN/creatinine ratioOrdered By: Ian Rocha on 01-23-2025 Urea nitrogen/Creatinine [Mass ratio] 18.5 mg/mg 10- [facility] Basic Metabolic Profile (BMP )on 01-23-2025 BUN/CRE 18.5 RATIO Normal - [facility] Comment on above: Performed By: #### L 100.0100, L500.2500 #### [facility] [address] [place], [address] Calcium [Mass/Vol] 9.2 mg/dL Normal 7.6-11.0 [facility] Comment on above: Performed By: #### L 100.0100, L500.2500 #### [facility] [address] [place], [address] Chloride [Moles/Vol] 102 mmol/L Normal 98-108 [facility] Comment on above: Performed By: #### L 100.0100, L500.2500 #### [facility] [address] [place], [address] CO2 [Moles/Vol] 21.5 mmol/L Normal 21.0-32.0 [facility] Comment on above: Performed By: #### L 100.0100, L500.2500 #### [facility] [address] [place], [address] Creatinine [Mass/Vol] 0.55 mg/dL Low 0.70-1.20 [facility] Comment on above: Performed By: #### L 100.0100, L500.2500 #### [facility] [address] [place], [address] ECRCL 158.08 ml/min Normal 50-250 [facility] Comment on above: Performed By: #### L 100.0100, L500.2500 #### [facility] [address] [place], [address] GAP 14 Normal 5-15 [facility] Comment on above: Performed By: #### L 100.0100, L500.2500 #### [facility] [address] [place], [address] GFR/1.73 sq M.predicted among non-blacks MDRD (S/P/Bld) [Vol rate/Area] 127 mL/min/{1.73_m2} Normal >60 [facility] Comment on above: Result Comment: mL/m in/1.73m2 CKD-EPI Creatinine Equation (2020) Performed By: #### L 100.0100, L500.2500 #### [facility] [address] [place], [address] Glucose [Mass/Vol] 229 mg/dL High 70-99 [facility] Comment on above: Performed By: #### L 100.0100, L500.2500 #### [facility] [address] [place], [address] Potassium [Moles/Vol] 3.4 mmol/L Normal 3.3-5.1 [facility] Comment on above: Performed By: #### L 100.0100, L500.2500 #### [facility] [address] [place], [address] Sodium [Moles/Vol] 138 mmol/L Normal 133-145 [facility] Comment on above: Performed By: #### L 100.0100, L500.2500 #### [facility] [address] [place], [address] Urea nitrogen [Mass/Vol] 10 mg/dL Normal 4-19 [facility] Comment on above: Performed By: #### L 100.0100, L500.2500 #### [facility] [address] [place], [address] Basophil percentageOrdered B y: Ian Rocha on 01-23-2025 Basophils/100 WBC (Bld) 0.8 % 0-1 [facility] CBC W/Diff, Automatedon 01-07 Absolute Lymph 2.24 X10 3/uL Normal 0.83-4.51 [facility] Comment on above: Performed By: #### L 100.0100, L500.2500 #### [facility] [address] [place], [address] Absolute Neut 4.6 X10 3/uL Normal 2.0-7.7 [facility] Comment on above: Performed By: #### L 100.0100, L500.2500 #### [facility] [address] [place], [address] Basophils/100 WBC (Bld) 0.8 % Normal 0-1 [facility] Comment on above: Performed By: #### L 100.0100, L500.2500 #### [facility] [address] [place], [address] Eosinophils/100 WBC (Bld) 2.6 % Normal 0-5 [facility] Comment on above: Performed By: #### L 100.0100, L500.2500 #### [facility] [address] [place], [address] Erythrocyte distribution width (RBC) [Ratio] 12.5 % Normal 11.6-14.6 [facility] Comment on above: Performed By: #### L 100.0100, L500.2500 #### [facility] [address] [place], [address] Hematocrit (Bld) [Volume fraction] 37.7 % Normal 37-47 [facility] Comment on above: Performed By: #### L 100.0100, L500.2500 #### [facility] [address] [place], [address] Hemoglobin (Bld) [Mass/Vol] 13.0 g/dL Normal 12.0-15.0 [facility] Comment on above: Performed By: #### L 100.0100, L500.2500 #### [facility] [address] [place], [address] IG% 0.100 Normal 0.0-0.9 [facility] Comment on above: Result Comment: IG% - Immature Granulocytes (promyelocytes, myelocytes and metamyelocytes) > 1% indicates that a LEFT SHIFT is Present. Performed By: #### L 100.0100, L500.2500 #### [facility] [address] [place], [address] Lymphocytes/100 WBC (Bld) 29.4 % Normal 19-41 [facility] Comment on above: Performed By: #### L 100.0100, L500.2500 #### [facility] [address] [place], [address] MCH (RBC) [Entitic mass] 28.4 pg Normal 27.0-32.0 [facility] Comment on above: Performed By: #### L 100.0100, L500.2500 #### [facility] [address] [place], [address] MCHC (RBC) [Mass/Vol] 34.5 g/dL Normal 32-36 [facility] Comment on above: Performed By: #### L 100.0100, L500.2500 #### [facility] [address] [place], [address] MCV (RBC) [Entitic vol] 82.5 fL Normal 81-99 [facility] Comment on above: Performed By: #### L 100.0100, L500.2500 #### [facility] [address] [place], [address] Monocytes/100 WBC (Bld) 6.6 % Normal 0-10 [facility] Comment on above: Performed By: #### L 100.0100, L500.2500 #### [facility] [address] [place], [address] Neutrophils/100 WBC (Bld) 60.5 % Normal 47-70 [facility] Comment on above: Performed By: #### L 100.0100, L500.2500 #### [facility] [address] [place], [address] Nucleated RBC (Bld) [#/Vol] 0 10*3/uL Normal 0-5 [facility] Comment on above: Performed By: #### L 100.0100, L500.2500 #### [facility] [address] [place], [address] Platelet mean volume (Bld) [Entitic vol] 9.7 fL Normal 6.2-12.0 [facility] Comment on above: Performed By: #### L 100.0100, L500.2500 #### [facility] [address] [place], [address] Platelets (Bld) [#/Vol] 317 10*3/uL Normal 150-450 [facility] Comment on above: Performed By: #### L 100.0100, L500.2500 #### [facility] [address] [place], [address] RBC (Bld) [#/Vol] 4.57 10*6/uL Normal 4.2-5.4 [facility] Comment on above: Performed By: #### L 100.0100, L500.2500 #### [facility] [address] [place], [address] RDW SD 37.4 fl Normal 35.1-43.9 [facility] Comment on above: Performed By: #### L 100.0100, L500.2500 #### [facility] [address] [place], [address] WBC (Bld) [#/Vol] 7.6 10*3/uL Normal 4.4-11.0 [facility] Comment on above: Performed By: #### L 100.0100, L500.2500 #### [facility] [address] [place], [address] Carbon dioxide, total [Moles /volume] in Central venous bloodOrdered By: Ian Rocha on 01-23-2025 CO2 [Moles/Vol] 21.5 mmol/L 21.0-32.0 [facility] Chloride assayOrdered By: Rosas Rocha on 01-23-2025 Chloride [Moles/Vol] 102 mmol/L 98-108 [facility] Emergency Department Summary on 01-23-2025 Emergency Department Summary [facility] Medical Records Department [address] [place] [address] Emergency Department Summary 01/23/25 MR#: [id number] Acct: [id number] Name: MELISSA BYRNE Rep #: [id number] : 1995 29 From: Ian Rocha MD [...] 69 Respirato (more content not included)... Normal [facility] Eosinophil percentageOrdered By: Ian Rocha on 01-23-2025 Eosinophils/100 WBC (Bld) 2.6 % 0-5 [facility] Erythrocyte distribution wid th ratioOrdered By: Ian Rocha on 01-23-2025 Erythrocyte distribution width (RBC) [Ratio] 12.5 % 11.6-14.6 [facility] Erythrocyte distribution wid th standard deviationOrdered By: Ian Rocha on 01-23-2025 Erythrocyte distribution width (RBC) [Ratio] 37.4 fl 35.1-43.9 [facility] Glomerular filtration rate ( GFR) estimation/1.73 sq m using serum, plasma, or whole bOrdered By: Ian Rocha on 01-23-2025 GFR/1.73 sq M.predicted among non-blacks MDRD (S/P/Bld) [Vol rate/Area] 127 mL/min/{1.73_m2} >60 [facility] Comment on above: mL/min/1.73m2 CKD-EP I Creatinine Equation (2020) Hematocrit Auto (Bld) [Volum e fraction]Ordered By: Ian Rocha on 01-23-2025 Hematocrit (Bld) [Volume fraction] 37.7 % 37-47 [facility] Hemoglobin measurementOrdere d By: Ian Rocha on 01-23-2025 Hemoglobin (Bld) [Mass/Vol] 13.0 g/dL 12.0-15.0 [facility] Immature granulocytes/100 WB C Auto (Bld)Ordered By: Ian Rocha on 01-23-2025 Immature granulocytes/100 WBC (Bld) 0.100 % 0.0-0.9 [facility] Comment on above: IG% - Immature Granu locytes (promyelocytes, myelocytes and metamyelocytes) > 1% indicates that a LEFT SHIFT is Present. MCV (mean corpuscular volume ) determinationOrdered By: Ian Rocha on 01-23-2025 MCV (RBC) [Entitic vol] 82.5 fL 81-99 [facility] Mean corpuscular hemoglobin (MCH) determinationOrdered By: Ian Rocha on 01-23-2025 MCH (RBC) [Entitic mass] 28.4 pg 27.0-32.0 [facility] Mean corpuscular hemoglobin concentration (MCHC) determinationOrdered By: Ian Rocha on 01-23-2025 MCHC (RBC) [Mass/Vol] 34.5 g/dL 32-36 [facility] Mean platelet volume determi nationOrdered By: Ian Rocha on 01-23-2025 Platelet mean volume (Bld) [Entitic vol] 9.7 fL 6.2-12.0 [facility] Monocyte percentageOrdered B y: Ian Rocha on 01-23-2025 Monocytes/100 WBC (Bld) 6.6 % 0-10 [facility] Neutrophil percentageOrdered By: Ian Rocha on 01-23-2025 Neutrophils/100 WBC (Bld) 60.5 % 47-70 [facility] Nucleated red blood cell per centageOrdered By: Ian Rocha on 01-23-2025 Nucleated RBC/100 WBC (Bld) [Ratio] 0 % 0-5 [facility] Platelet countOrdered By: Rosas Rocha on 01-23-2025 Platelets (Bld) [#/Vol] 317 10*3/uL 150-450 [facility] Potassium measurement (mass/ volume)Ordered By: Ian Rocha on 01-23-2025 Potassium (Unsp spec) [Mass/Vol] 3.4 mmol/L 3.3-5.1 [facility] ,Serum,hCG Quali.on 01-23-2025 HCG, SERUM QUAL Negative Normal [facility] Comment on above: Performed By: #### B TS, L100.0100 #### [facility] [address] [place], [address] RBC Auto (Bld) [#/Vol]Ordere d By: Ian Rocha on 01-23-2025 RBC (Bld) [#/Vol] 4.57 10*6/uL 4.2-5.4 [facility] Serum beta-hCG test, qualita tiveOrdered By: Ian Rocha on 01-23-2025 Beta HCG ( test) Ql Negative [facility] Serum creatinine measurement (mass/volume)Ordered By: Ian Rocha on 01-23-2025 Creatinine [Mass/Vol] 0.55 mg/dL Low 0.70-1.20 [facility] Serum glucose measurement (m ass/volume)Ordered By: Ian Rocha on 01-23-2025 Glucose [Mass/Vol] 229 mg/dL High 70-99 [facility] Serum or plasma calcium patrick urement (mass/volume)Ordered By: Ian Rocha on 01-23-2025 Calcium [Mass/Vol] 9.2 mg/dL 7.6-11.0 [facility] Serum or plasma urea nitroge n measurement (mass/volume)Ordered By: Ian Rocha on 01-23-2025 Urea nitrogen [Mass/Vol] 10 mg/dL 4-19 [facility] Sodium levelOrdered By: Ian Rocha on 01-23-2025 Sodium [Moles/Vol] 138 mmol/L 133-145 [facility] White blood cell (WBC) count Ordered By: Ian Rocha on 01-23-2025 WBC (Bld) [#/Vol] 7.6 10*3/uL 4.4-11.0 [facility] Hemoglobin A1con 01-21-2025 HbA1c (Bld) [Mass fraction] 6.8 % High <=5.6 [facility] Comment on above: Result Comment: Norm al < 5.7 % Prediabetic 5.7 - 6.4 % Diabetic >or= 6.5 % Please note range changes. Performed By: #### L 501.9996 ####[facility] [address] [place], [place], [id number] Hemoglobin A1c percentageOrd ered By: Claude Tomlin on 01-21-2025 HbA1c (Bld) [Mass fraction] 6.8 % High <5.7 [facility] Comment on above: Normal < 5.7 % Predi abetic 5.7 - 6.4 % Diabetic >or= 6.5 % Please note range changes. LDHon 01-21-2025 LDH 156 U/L Normal 84-246 [facility] Comment on above: Performed By: #### B , L100.0100 #### [facility] [address] [place], [address] Magnesiumon 01-21-2025 Magnesium [Mass/Vol] 1.8 mg/dL Normal 1.5-2.2 [facility] Comment on above: Performed By: #### B , L100.0100 #### [facility] [address] [place], [address] Uric Acidon 01-21-2025 URIC 4.0 mg/dL Normal 2.6-6.0 [facility] Comment on above: Result Comment: The drugs N-Acetylcysteine and Metamizole may falsely depress this assay. Performed By: #### B , L100.0100 #### [facility] [address] [place], [address] Urinalysis, Completeon 01-21 BACTERIA RARE Normal None Seen [facility] Comment on above: Order Comment: CLEAN CATCH Performed By: #### L 400.0001 ####[facility] [address] [place], [address] EPI,SQUAMOUS 5-10 SEEN Normal 5-10 [facility] Comment on above: Order Comment: CLEAN CATCH Performed By: #### L 400.0001 ####[facility] [address] [place], [address] WBC 5-10 SEEN Normal 0-5 [facility] Comment on above: Order Comment: CLEAN CATCH Performed By: #### L 400.0001 ####[facility] [address] [place], [address] Absolute lymphocyte countOrd ered By: Elie Mo on 01-20-2025 Lymphocytes Auto (Unsp spec) [#/Vol] 2.71 10*3/uL 0.83-4.51 [facility] Absolute neutrophil countOrd ered By: Elie Mo on 01-20-2025 Neutrophils (Bld) [#/Vol] 3.9 10*3/uL 2.0-7.7 [facility] Anion gap in Serum or Plasma Ordered By: Elie Mo on 01-20-2025 Anion gap [Moles/Vol] 13 mmol/L - [facility] Automated lymphocyte count a s percentage of total leukocytesOrdered By: Elie Mo on 01-20-2025 Lymphocytes/100 WBC Auto (Unsp spec) 36.6 % [facility] BUN/creatinine ratioOrdered By: Elie Mo on 01-20-2025 Urea nitrogen/Creatinine [Mass ratio] 18.5 mg/mg - [facility] Basic Metabolic Profile (BMP )on 01-20-2025 BUN/CRE 18.5 RATIO Normal - [facility] Comment on above: Performed By: #### L 400.0001 #### [facility] [address] [place], [address] Calcium [Mass/Vol] 9.2 mg/dL Normal 7.6-11.0 [facility] Comment on above: Performed By: #### L 400.0001 #### [facility] [address] [place], [address] Chloride [Moles/Vol] 105 mmol/L Normal 98-108 [facility] Comment on above: Performed By: #### L 400.0001 #### [facility] [address] [place], [address] CO2 [Moles/Vol] 21.5 mmol/L Normal 21.0-32.0 [facility] Comment on above: Performed By: #### L 400.0001 #### [facility] [address] [place], [address] Creatinine [Mass/Vol] 0.67 mg/dL Low 0.70-1.20 [facility] Comment on above: Performed By: #### L 400.0001 #### [facility] [address] [place], [address] ECRCL 132.14 ml/min Normal 50-250 [facility] Comment on above: Performed By: #### L 400.0001 #### [facility] [address] [place], [address] GAP 13 Normal 5-15 [facility] Comment on above: Performed By: #### L 400.0001 #### [facility] [address] [place], [address] GFR/1.73 sq M.predicted among non-blacks MDRD (S/P/Bld) [Vol rate/Area] 121 mL/min/{1.73_m2} Normal >60 [facility] Comment on above: Result Comment: mL/m in/1.73m2 CKD-EPI Creatinine Equation (2020) Performed By: #### L 400.0001 #### [facility] [address] [place], [address] Glucose [Mass/Vol] 206 mg/dL High 70-99 [facility] Comment on above: Performed By: #### L 400.0001 #### [facility] [address] [place], [address] Potassium [Moles/Vol] 3.5 mmol/L Normal 3.3-5.1 [facility] Comment on above: Performed By: #### L 400.0001 #### [facility] [address] [place], [address] Sodium [Moles/Vol] 140 mmol/L Normal 133-145 [facility] Comment on above: Performed By: #### L 400.0001 #### [facility] [address] [place], [address] Urea nitrogen [Mass/Vol] 12 mg/dL Normal 4-19 [facility] Comment on above: Performed By: #### L 400.0001 #### [facility] [address] [place], [address] Basophil percentageOrdered B y: Elie Mo on 01-20-2025 Basophils/100 WBC (Bld) 0.7 % 0-1 [facility] Bilirubin Test strip Ql (U)O rdered By: Elie Mo on 01-20-2025 Bilirubin Ql (U) Negative Negative [facility] Bilirubin directOrdered By: Elie Mo on 01-20-2025 Bilirubin.direct [Mass/Vol] 0.10 mg/dL 0.00-0.30 [facility] Bilirubin, totalOrdered By: Elie Mo on 01-20-2025 Bilirubin [Mass/Vol] 0.23 mg/dL 0.00-1.30 [facility] CBC W/Diff, Automatedon 01-07 Absolute Lymph 2.71 X10 3/uL Normal 0.83-4.51 [facility] Comment on above: Performed By: #### Jo KWON, L100.0100 #### [facility] [address] [place], [address] Absolute Neut 3.9 X10 3/uL Normal 2.0-7.7 [facility] Comment on above: Performed By: #### Jo KWON, L100.0100 #### [facility] [address] [place], [address] Basophils/100 WBC (Bld) 0.7 % Normal 0-1 [facility] Comment on above: Performed By: #### Jo TS, L100.0100 #### [facility] [address] [place], [address] Eosinophils/100 WBC (Bld) 3.2 % Normal 0-5 [facility] Comment on above: Performed By: #### Jo TS, L100.0100 #### [facility] [address] [place], [address] Erythrocyte distribution width (RBC) [Ratio] 12.5 % Normal 11.6-14.6 [facility] Comment on above: Performed By: #### Jo KWON, L100.0100 #### [facility] [address] [place], [address] Hematocrit (Bld) [Volume fraction] 38.4 % Normal 37-47 [facility] Comment on above: Performed By: #### Jo KWON, L100.0100 #### [facility] [address] [place], [address] Hemoglobin (Bld) [Mass/Vol] 12.9 g/dL Normal 12.0-15.0 [facility] Comment on above: Performed By: #### Jo KWON, L100.0100 #### [facility] [address] [place], [address] IG% 0.300 Normal 0.0-0.9 [facility] Comment on above: Result Comment: IG% - Immature Granulocytes (promyelocytes, myelocytes and metamyelocytes) > 1% indicates that a LEFT SHIFT is Present. Performed By: #### Jo KWON, L100.0100 #### [facility] [address] [place], [address] Lymphocytes/100 WBC (Bld) 36.6 % Normal 19-41 [facility] Comment on above: Performed By: #### Jo KWON, L100.0100 #### [facility] [address] [place], [address] MCH (RBC) [Entitic mass] 27.8 pg Normal 27.0-32.0 [facility] Comment on above: Performed By: #### Jo KWON, L100.0100 #### [facility] [address] [place], [address] MCHC (RBC) [Mass/Vol] 33.6 g/dL Normal 32-36 [facility] Comment on above: Performed By: #### Jo KWON, L100.0100 #### [facility] [address] [place], [address] MCV (RBC) [Entitic vol] 82.8 fL Normal 81-99 [facility] Comment on above: Performed By: #### Jo KWON, L100.0100 #### [facility] [address] [place], [address] Monocytes/100 WBC (Bld) 6.1 % Normal 0-10 [facility] Comment on above: Performed By: #### Jo KWON, L100.0100 #### [facility] [address] [place], [address] Neutrophils/100 WBC (Bld) 53.1 % Normal 47-70 [facility] Comment on above: Performed By: #### Jo KWON, L100.0100 #### [facility] [address] [place], [address] Nucleated RBC (Bld) [#/Vol] 0 10*3/uL Normal 0-5 [facility] Comment on above: Performed By: #### Jo KWON, L100.0100 #### [facility] [address] [place], [address] Platelet mean volume (Bld) [Entitic vol] 9.6 fL Normal 6.2-12.0 [facility] Comment on above: Performed By: #### Jo KWON, L100.0100 #### [facility] [address] [place], [address] Platelets (Bld) [#/Vol] 289 10*3/uL Normal 150-450 [facility] Comment on above: Performed By: #### Jo KWON, L100.0100 #### [facility] [address] [place], [address] RBC (Bld) [#/Vol] 4.64 10*6/uL Normal 4.2-5.4 [facility] Comment on above: Performed By: #### B TS, L100.0100 #### [facility] [address] [place], [address] RDW SD 37.6 fl Normal 35.1-43.9 [facility] Comment on above: Performed By: #### B TS, L100.0100 #### [facility] [address] [place], [address] WBC (Bld) [#/Vol] 7.4 10*3/uL Normal 4.4-11.0 [facility] Comment on above: Performed By: #### B TS, L100.0100 #### [facility] [address] [place], [address] CNOVon 01-20-2025 CNOV Normal [facility] CO2 (BldV) [Moles/Vol]Ordere d By: Elie Mo on 01-20-2025 CO2 [Moles/Vol] 28 mmol/L 23-33 [facility] Carbon dioxide, total [Moles /volume] in Central venous bloodOrdered By: Elie Mo on 01-20-2025 CO2 [Moles/Vol] 21.5 mmol/L 21.0-32.0 [facility] Chloride assayOrdered By: Lucia Mo on 01-20-2025 Chloride [Moles/Vol] 105 mmol/L 98-108 [facility] Emergency Department Summary on 01-20-2025 Emergency Department Summary [facility] Medical Records Department [address] [place] [address] Emergency Department Summary 01/20/25 MR#: [id number] Acct: [id number] Name: MELISSA BYRNE AMRITA Rep #: [id number] : 1995 29 From: Elie Mo DO [...] her and therefore she presents for evaluation [facility] Medical History Seizures Asthma Osteoarthritis Diabetes [...] or gallop (more content not included)... Normal [facility] Eosinophil percentageOrdered By: Elie Mo on 01-20-2025 Eosinophils/100 WBC (Bld) 3.2 % 0-5 [facility] Erythrocyte distribution wid th ratioOrdered By: Elie Mo on 01-20-2025 Erythrocyte distribution width (RBC) [Ratio] 12.5 % 11.6-14.6 [facility] Erythrocyte distribution wid th standard deviationOrdered By: Elie Mo on 01-20-2025 Erythrocyte distribution width (RBC) [Ratio] 37.6 fl 35.1-43.9 [facility] Glomerular filtration rate ( GFR) estimation/1.73 sq m using serum, plasma, or whole bOrdered By: Elie Mo on 01-20-2025 GFR/1.73 sq M.predicted among non-blacks MDRD (S/P/Bld) [Vol rate/Area] 121 mL/min/{1.73_m2} >60 [facility] Comment on above: mL/min/1.73m2 CKD-EP I Creatinine Equation (2020) HEMOGLOBIN A1C (POC)on 01-20 HbA1c (Bld) [Mass fraction] 7.1 % Abnormal 4.3 - 5.6 % [facility] Comment on above: Location:[facility], [address] [place] [address], [facility] Point of care (POC) Hemoglobin A1c [...] specific diabetes management situations: The POC device ton container shipper provides a normal range of 4.2% to 6.5% for the HGBA1C POC test. However, the [place] [employer] guidelines indicate that patients with [...] Interpretation and review of laboratory results Abnormal [facility] Hematocrit Auto (Bld) [Volum e fraction]Ordered By: Elie Mo on 01-20-2025 Hematocrit (Bld) [Volume fraction] 38.4 % 37-47 [facility] Hemoglobin measurementOrdere d By: Elie Mo on 01-20-2025 Hemoglobin (Bld) [Mass/Vol] 12.9 g/dL 12.0-15.0 [facility] Immature granulocytes/100 WB C Auto (Bld)Ordered By: Elie Mo on 01-20-2025 Immature granulocytes/100 WBC (Bld) 0.300 % 0.0-0.9 [facility] Comment on above: IG% - Immature Granu locytes (promyelocytes, myelocytes and metamyelocytes) > 1% indicates that a LEFT SHIFT is Present. Ketones Test strip Ql (U)Ord ered By: Elie Mo on 01-20-2025 Ketones Ql (U) Negative Negative [facility] - Chemistry and C hemistry - challengeOrdered By: Elie Mo on 01-20-2025 AST [Catalytic activity/Vol] 17 U/L <32 [facility] Lactate dehydrogenase (LDH) measurementOrdered By: Elie Mo on 01-20-2025 LDH [Catalytic activity/Vol] 156 U/L 84-246 [facility] Lipaseon 01-20-2025 Lipase [Catalytic activity/Vol] 29 U/L Normal 13-75 [facility] Comment on above: Result Comment: Carson barker note: LIPASE revised reference range effective 22. New Lipase methodology. Expected to produce lower values than the previous assay method. NEW Reference Range: 13 - 75 U/L Performed By: #### L 500.2500, L500.3400, L501.2450 ####[facility] [address] [place], [place], [id number] Lipase measurementOrdered By : Elie Mo on 01-20-2025 Lipase [Catalytic activity/Vol] 29 U/L 13-75 [facility] Comment on above: Please note:LIPASE r evised reference range effective 22. New Lipase methodology. Expected to produce lower values than the previous assay method. NEW Reference Range: 13 - 75 U/L Liver Profileon 01-20-2025 Albumin [Mass/Vol] 3.9 g/dL Normal 3.5-5.0 [facility] Comment on above: Performed By: #### L 400.0001 #### [facility] [address] [place], [address] ALK PHOS 89 U/L Normal 35-104 [facility] Comment on above: Performed By: #### L 400.0001 #### [facility] [address] [place], [address] ALT [Catalytic activity/Vol] 37 U/L High <=34 [facility] Comment on above: Performed By: #### L 400.0001 #### [facility] [address] [place], [address] AST [Catalytic activity/Vol] 17 U/L Normal <=31 [facility] Comment on above: Performed By: #### L 400.0001 #### [facility] [address] [place], [address] Bilirubin [Mass/Vol] 0.23 mg/dL Normal 0.00-1.30 [facility] Comment on above: Performed By: #### L 400.0001 #### [facility] [address] [place], [address] Bilirubin.direct [Mass/Vol] 0.10 mg/dL Normal 0.00-0.30 [facility] Comment on above: Performed By: #### L 400.0001 #### [facility] [address] [place], [address] Globulin (S) [Mass/Vol] 3.0 g/dL Normal 2.2-4.2 [facility] Comment on above: Performed By: #### L 400.0001 #### [facility] [address] [place], [address] T PROT 6.9 g/dL Normal 5.9-8.4 [facility] Comment on above: Performed By: #### L 400.0001 #### [facility] [address] [place], [address] MCV (mean corpuscular volume ) determinationOrdered By: Elie Mo on 01-20-2025 MCV (RBC) [Entitic vol] 82.8 fL 81-99 [facility] Magnesium measurement (mass/ volume)Ordered By: Elie Mo on 01-20-2025 Magnesium (Unsp spec) [Mass/Vol] 1.8 mg/dL 1.5-2.2 [facility] Mean corpuscular hemoglobin (MCH) determinationOrdered By: Elie Mo on 01-20-2025 MCH (RBC) [Entitic mass] 27.8 pg 27.0-32.0 [facility] Mean corpuscular hemoglobin concentration (MCHC) determinationOrdered By: Elie Mo on 01-20-2025 MCHC (RBC) [Mass/Vol] 33.6 g/dL 32-36 [facility] Mean platelet volume determi nationOrdered By: Elie Mo on 01-20-2025 Platelet mean volume (Bld) [Entitic vol] 9.6 fL 6.2-12.0 [facility] Microscopic analysis of urin e for red blood cells (RBC)Ordered By: Elie Mo on 01-20-2025 Microscopic analysis of urine for red blood cells (RBC) 0 SEEN /hpf 0-5 [facility] Monocyte percentageOrdered B y: Elie Mo on 01-20-2025 Monocytes/100 WBC (Bld) 6.1 % 0-10 [facility] Mucus LM Ql (Urine sed)Order ed By: Elie Mo on 01-20-2025 Mucus Ql (Urine sed) 0 SEEN /hpf [facility] Neutrophil percentageOrdered By: Elie Mo on 01-20-2025 Neutrophils/100 WBC (Bld) 53.1 % 47-70 [facility] Nitrite Test strip Ql (U)Ord ered By: Elie Mo on 01-20-2025 Nitrite Ql (U) Negative Negative [facility] No Panel InformationOrdered By: Elie Mo on 01-20-2025 Blood Gas Sample Site Not entered [facility] Blood Gas Specimen Type RD [facility] Oxygen Delivery Device Room Air [facility] Nucleated red blood cell per centageOrdered By: Elie Mo on 01-20-2025 Nucleated RBC/100 WBC (Bld) [Ratio] 0 % 0-5 [facility] Platelet countOrdered By: Lucia Mo on 01-20-2025 Platelets (Bld) [#/Vol] 289 10*3/uL 150-450 [facility] Potassium measurement (mass/ volume)Ordered By: Elie Mo on 01-20-2025 Potassium (Unsp spec) [Mass/Vol] 3.5 mmol/L 3.3-5.1 [facility] ,Serum,hCG Quali.on 01-20-2025 HCG, SERUM QUAL Negative Normal [facility] Comment on above: Performed By: #### B TS, L100.0100 #### [facility] [address] [place] [address]. [place], [address] Protein Test strip Ql (U)Ord ered By: Elie Mo on 01-20-2025 Protein Ql (U) 30 mg/dl High Negative [facility] RBC Auto (Bld) [#/Vol]Ordere d By: Elie Mo on 01-20-2025 RBC (Bld) [#/Vol] 4.64 10*6/uL 4.2-5.4 [facility] Serum beta-hCG test, qualita tiveOrdered By: Elie Mo on 01-20-2025 Beta HCG ( test) Ql Negative [facility] Serum creatinine measurement (mass/volume)Ordered By: Elie Mo on 01-20-2025 Creatinine [Mass/Vol] 0.67 mg/dL Low 0.70-1.20 [facility] Serum globulin measurementOr dered By: Elie Mo on 01-20-2025 Globulin (S) [Mass/Vol] 3.0 g/dL 2.2-4.2 [facility] Serum glucose measurement (m ass/volume)Ordered By: Elie Mo on 01-20-2025 Glucose [Mass/Vol] 206 mg/dL High 70-99 [facility] Serum or plasma alanine schafer otransferase (ALT) measurementOrdered By: Elie Mo on 01-20-2025 ALT [Catalytic activity/Vol] 37 U/L High <35 [facility] Serum or plasma albumin patrick urement (mass/volume)Ordered By: Elie Mo on 01-20-2025 Albumin [Mass/Vol] 3.9 g/dL 3.5-5.0 [facility] Serum or plasma alkaline anaid sphatase measurementOrdered By: Elie Mo on 01-20-2025 ALP [Catalytic activity/Vol] 89 U/L 35-104 [facility] Serum or plasma calcium patrick urement (mass/volume)Ordered By: Elie Mo on 01-20-2025 Calcium [Mass/Vol] 9.2 mg/dL 7.6-11.0 [facility] Serum or plasma urea nitroge n measurement (mass/volume)Ordered By: Elie Mo on 01-20-2025 Urea nitrogen [Mass/Vol] 12 mg/dL 4-19 [facility] Serum or plasma uric acid me asurement (mass/volume)Ordered By: Elie Mo on 01-20-2025 Urate [Mass/Vol] 4.0 mg/dL 2.6-6.0 [facility] Comment on above: The drugs N-Acetylcy steine and Metamizole may falsely depress this assay. Sodium levelOrdered By: Irving Mo on 01-20-2025 Sodium [Moles/Vol] 140 mmol/L 133-145 [facility] Squamous epithelial cells de tection in urine sediment by light microscopyOrdered By: Elie Mo on 01-20-2025 Epithelial cells.squamous LM Ql (Urine sed) 5-10 SEEN /hpf 5-10 [facility] Total proteinOrdered By: Khoa Mo on 01-20-2025 Protein [Mass/Vol] 6.9 g/dL 5.9-8.4 [facility] Urinalysis, Completeon 01-20 BILIRUBIN URINE Negative Normal Negative [facility] Comment on above: Order Comment: CLEAN CATCH Performed By: #### L 400.0001 ####[facility] [address] [place], [address] Clarity (U) Clear Normal Clear [facility] Comment on above: Order Comment: CLEAN CATCH Performed By: #### L 400.0001 ####[facility] [address] [place], [address] Color (U) Straw Normal Yellow [facility] Comment on above: Order Comment: CLEAN CATCH Performed By: #### L 400.0001 ####[facility] [address] [place], [address] GLUCOSE, UR Normal Normal Normal [facility] Comment on above: Order Comment: CLEAN CATCH Performed By: #### L 400.0001 ####[facility] [address] [place], [address] KETONE UR Negative Normal Negative [facility] Comment on above: Order Comment: CLEAN CATCH Performed By: #### L 400.0001 ####[facility] [address] [place], [address] LEUK ESTERASE 25 /ul Abnormal Negative [facility] Comment on above: Order Comment: CLEAN CATCH Performed By: #### L 400.0001 ####[facility] [address] [place], [address] Nitrite Ql (U) Negative Normal Negative [facility] Comment on above: Order Comment: CLEAN CATCH Performed By: #### L 400.0001 ####[facility] [address] [place], [address] OCCULT BLOOD-UR Negative Normal Negative [facility] Comment on above: Order Comment: CLEAN CATCH Performed By: #### L 400.0001 ####[facility] [address] [place], [address] pH UR 6.0 Normal 5.0 - 8.0 [facility] Comment on above: Order Comment: CLEAN CATCH Performed By: #### L 400.0001 ####[facility] [address] [place], [address] PROT DIPSTX 30 mg/dl Abnormal Negative [facility] Comment on above: Order Comment: CLEAN CATCH Performed By: #### L 400.0001 ####[facility] [address] [place], [address] SP.GR. DIPSTX 1.020 Normal 1.002-1.030 [facility] Comment on above: Order Comment: CLEAN CATCH Performed By: #### L 400.0001 ####[facility] [address] [place], [address] UROBILI 1 mg/dl Abnormal Normal [facility] Comment on above: Order Comment: CLEAN CATCH Performed By: #### L 400.0001 ####[facility] [address] [place], [address] Mucus Ql (Urine sed) 0 SEEN Normal [facility] Comment on above: Order Comment: CLEAN CATCH Performed By: #### L 400.0001 ####[facility] [address] [place], [address] RBC 0 SEEN Normal 0-5 [facility] Comment on above: Order Comment: CLEAN CATCH Performed By: #### L 400.0001 ####[facility] [address] [place], [address] Urine clarityOrdered By: Khoa Mo on 01-20-2025 Clarity (U) Clear Clear [facility] Urine color determinationOrd ered By: Elie Mo on 01-20-2025 Color (U) Straw Yellow [facility] Urine glucose detectionOrder ed By: Elie Mo on 01-20-2025 Glucose Ql (U) Normal mg/dl Normal [facility] Urine leukocyte esterase det ection by dipstickOrdered By: Elie Mo on 01-20-2025 Leukocyte esterase Test strip Ql (U) 25 /ul High Negative [facility] Urine pHOrdered By: Elie bateman on 01-20-2025 pH (U) 6.0 [pH] 5.0 - 8.0 [facility] Urine sediment bacteria coun t by microscopy (number/high power field)Ordered By: Elie Mo on 01-20-2025 Bacteria LM.HPF (Urine sed) [#/Area] RARE /hpf None Seen [facility] Urine specific gravity measu rementOrdered By: Elie Mo on 01-20-2025 Specific gravity (U) [Rel density] 1.020 1.002-1.030 [facility] Urine urobilinogen measureme ntOrdered By: Elie Mo on 01-20-2025 Urobilinogen Ql (U) 1 mg/dl High Normal [facility] Venous Blood Gason Blood Gas Type RD Normal [facility] Comment on above: Performed By: #### L 400.0001 #### [facility] [address] [place], [address] CO2 [Moles/Vol] 28 mmol/L Normal 23-33 [facility] Comment on above: Performed By: #### L 400.0001 #### [facility] [address] [place], [address] HCO3 (Bld) [Moles/Vol] 27 mmol/L High 22-26 [facility] Comment on above: Performed By: #### L 400.0001 #### [facility] [address] [place], [address] O2 Delivery Dev Room Air Normal [facility] Comment on above: Performed By: #### L 400.0001 #### [facility] [address] [place], [address] SITE Not entered [facility] Comment on above: Performed By: #### L 400.0001 #### [facility] [address] [place], [address] VBG BE 2 mmol/L Normal -1.0-3.5 [facility] Comment on above: Performed By: #### L 400.0001 #### [facility] [address] [place], [place], [address] VBG pCO2 41.2 mmHg Normal 41-51 [facility] Comment on above: Performed By: #### L 400.0001 #### [facility] [address] [place], [address] VBG pH 7.42 Normal 7.32-7.42 [facility] Comment on above: Performed By: #### L 400.0001 #### [facility] [address] [place], [address] VBG PO2 48 mmHg High 25-40 [facility] Comment on above: Performed By: #### L 400.0001 #### [facility] [address] [place], [address] VBG SO2 84 High 50-70 [facility] Comment on above: Performed By: #### L 400.0001 #### [facility] [address] [place], [address] Venous blood base excess brigitte surementOrdered By: Elie Mo on 01-20-2025 Base excess Calc (BldV) [Moles/Vol] 2 mmol/L -1.0-3.5 [facility] Venous blood bicarbonate brigitte surementOrdered By: Elie Mo on 01-20-2025 HCO3 (Bld) [Moles/Vol] 27 mmol/L High 22-26 [facility] Venous blood oxygen saturati on measurementOrdered By: Elie Mo on 01-20-2025 Oxygen saturation in Blood 84 % High 50-70 [facility] Venous blood pH measurementO rdered By: Elie Mo on 01-20-2025 pH (BldV) 7.42 [pH] 7.32-7.42 [facility] Venous blood partial pressur e of carbon dioxide measurementOrdered By: Elie Mo on 01-20-2025 CO2 (BldV) [Partial pressure] 41.2 mm[Hg] 41-51 [facility] Venous blood partial pressur e of oxygen measurementOrdered By: Elie Mo on 01-20-2025 Oxygen (BldV) [Partial pressure] 48 mm[Hg] High 25-40 [facility] White blood cell (WBC) count Ordered By: Elie Mo on 01-20-2025 WBC (Bld) [#/Vol] 7.4 10*3/uL 4.4-11.0 [facility] White blood cell countOrdere d By: Elie Mo on 01-20-2025 White blood cell count 5-10 SEEN /hpf 0-5 [facility] HISTORY PHYSICALon HISTORY PHYSICAL Normal [facility] AST(SGOT)on 12-16-2024 AST [Catalytic activity/Vol] 17 U/L Normal <=31 [facility] Comment on above: Performed By: #### Jo KWON, L100.0100 #### [facility] [address] [place], [address] Alanine Aminotransferas (SGP T)on 12-16-2024 ALT [Catalytic activity/Vol] 24 U/L Normal <=34 [facility] Comment on above: Performed By: #### Jo KWON, L100.0100 #### [facility] [address] [place], [address] Bedside Glucoseon 12-16-2024 FINGERSTICK GLU 115 mg/dL High 74-106 [facility] Comment on above: Result Comment: ELLEN ZAMBRANO OF PATIENT CARE PER NURSING PROTOCOL Performed By: #### L 100.0100, L500.2500 #### [facility] [address] [place], [address] CBC-Complete Blood Cnt No Di ffon 12-16-2024 Erythrocyte distribution width (RBC) [Ratio] 12.7 % Normal 11.6-14.6 [facility] Comment on above: Performed By: #### Jo KWON, L100.0100 #### [facility] [address] [place], [address] Hematocrit (Bld) [Volume fraction] 38.6 % Normal 37-47 [facility] Comment on above: Performed By: #### Jo KWON, L100.0100 #### [facility] [address] [place], [address] Hemoglobin (Bld) [Mass/Vol] 12.9 g/dL Normal 12.0-15.0 [facility] Comment on above: Performed By: #### Jo KWON, L100.0100 #### [facility] [address] [place], [address] MCH (RBC) [Entitic mass] 28.4 pg Normal 27.0-32.0 [facility] Comment on above: Performed By: #### Jo KWON, L100.0100 #### [facility] [address] [place], [address] MCHC (RBC) [Mass/Vol] 33.4 g/dL Normal 32-36 [facility] Comment on above: Performed By: #### Jo KWON, L100.0100 #### [facility] [address] [place], [address] MCV (RBC) [Entitic vol] 85.0 fL Normal 81-99 [facility] Comment on above: Performed By: #### Jo KWON, L100.0100 #### [facility] [address] [place], [address] Platelet mean volume (Bld) [Entitic vol] 9.3 fL Normal 6.2-12.0 [facility] Comment on above: Performed By: #### Jo KWON, L100.0100 #### [facility] [address] [place], [address] Platelets (Bld) [#/Vol] 378 10*3/uL Normal 150-450 [facility] Comment on above: Performed By: #### Jo KWON, L100.0100 #### [facility] [address] [place], [address] RBC (Bld) [#/Vol] 4.54 10*6/uL Normal 4.2-5.4 [facility] Comment on above: Performed By: #### Jo TS, L100.0100 #### [facility] [address] [place], [address] RDW SD 38.8 fl Normal 35.1-43.9 [facility] Comment on above: Performed By: #### Jo KWON, L100.0100 #### [facility] [address] [place], [address] WBC (Bld) [#/Vol] 8.3 10*3/uL Normal 4.4-11.0 [facility] Comment on above: Performed By: #### Jo KWON, L100.0100 #### [facility] [address] [place], [address] CNPNon 12-16-2024 CNPN Normal [facility] Erythrocyte distribution wid th ratioOrdered By: Mariajose Nickerson on 12-16-2024 Erythrocyte distribution width (RBC) [Ratio] 12.7 % 11.6-14.6 [facility] Erythrocyte distribution wid th standard deviationOrdered By: Mariajose Nickerson on 12-16-2024 Erythrocyte distribution width (RBC) [Ratio] 38.8 fl 35.1-43.9 [facility] Glomerular filtration rate ( GFR) estimation/1.73 sq m using serum, plasma, or whole bOrdered By: Mariajose Nickerson on 12-16-2024 GFR/1.73 sq M.predicted among non-blacks MDRD (S/P/Bld) [Vol rate/Area] 126 mL/min/{1.73_m2} >60 [facility] Comment on above: mL/min/1.73m2 CKD-EP I Creatinine Equation (2020) Gl[facility] at [facility] deOrdered By: Mariajose Nickerson on 12-16-2024 Glucose [Mass/Vol] 115 mg/dL High 74-106 [facility] Comment on above: MANAGEMENT OF PATIEN T CARE PER NURSING PROTOCOL Hematocrit Auto (Bld) [Volum e fraction]Ordered By: Mariajose Nickerson on 12-16-2024 Hematocrit (Bld) [Volume fraction] 38.6 % 37-47 [facility] Hemoglobin measurementOrdere d By: Mariajose Nickerson on 12-16-2024 Hemoglobin (Bld) [Mass/Vol] 12.9 g/dL 12.0-15.0 [facility] - Chemistry and C hemistry - challengeOrdered By: Mariajose Nickerson on 12-16-2024 AST [Catalytic activity/Vol] 17 U/L <32 [facility] MCV (mean corpuscular volume ) determinationOrdered By: Mariajose Nickerson on 12-16-2024 MCV (RBC) [Entitic vol] 85.0 fL 81-99 [facility] Mean corpuscular hemoglobin (MCH) determinationOrdered By: Mariajose Nickerson on 12-16-2024 MCH (RBC) [Entitic mass] 28.4 pg 27.0-32.0 [facility] Mean corpuscular hemoglobin concentration (MCHC) determinationOrdered By: Mariajose Nickerson on 12-16-2024 MCHC (RBC) [Mass/Vol] 33.4 g/dL 32-36 [facility] Mean platelet volume determi nationOrdered By: Mariajose Nickerson on 12-16-2024 Platelet mean volume (Bld) [Entitic vol] 9.3 fL 6.2-12.0 [facility] OB Triage Physician Noteon 0 12-16-2024 OB Triage Physician Note [facility] Medical Records Department [address] [place] [address] OB Triage Physician Note 12/16/242022 MR#: [id number] Acct: [id number] Name: MELISSA BYRNE Rep #: [id number] : 1995 29 From: Mariajose Nickerson CNM PCP: Dr. Jamari Byrne MD Status:REG CLI Y Location: [place] [address] HPI - General HPI Narrative MELISSA BYRNE, [...] Nickerson; Dr. Jamari Byrne MD Signed Normal [facility] Platelet countOrdered By: Tamera Nickerson on 12-16-2024 Platelets (Bld) [#/Vol] 378 10*3/uL 150-450 [facility] RBC Auto (Bld) [#/Vol]Ordere d By: Mariajose Nickerson on 12-16-2024 RBC (Bld) [#/Vol] 4.54 10*6/uL 4.2-5.4 [facility] Serum Creatinine AND GFRon 0 12-16-2024 Creatinine [Mass/Vol] 0.57 mg/dL Low 0.70-1.20 [facility] Comment on above: Performed By: #### B SHYANN, L100.0100 #### [facility] [address] [place], [address] ECRCL 250.08 ml/min High 50-250 [facility] Comment on above: Performed By: #### Jo KWON, L100.0100 #### [facility] [address] [place], [address] GFR/1.73 sq M.predicted among non-blacks MDRD (S/P/Bld) [Vol rate/Area] 126 mL/min/{1.73_m2} Normal >60 [facility] Comment on above: Result Comment: mL/m in/1.73m2 CKD-EPI Creatinine Equation (2020) Performed By: #### B SHYANN, L100.0100 #### [facility] [address] [place], [address] Serum creatinine measurement (mass/volume)Ordered By: Mariajose Nickerson on 12-16-2024 Creatinine [Mass/Vol] 0.57 mg/dL Low 0.70-1.20 [facility] Serum or plasma alanine schafer otransferase (ALT) measurementOrdered By: Mariajose Nickerson on 12-16-2024 ALT [Catalytic activity/Vol] 24 U/L <35 [facility] Serum or plasma uric acid me asurement (mass/volume)Ordered By: Mariajose Nickerson on 12-16-2024 Urate [Mass/Vol] 5.3 mg/dL 2.6-6.0 [facility] Comment on above: The drugs N-Acetylcy steine and Metamizole may falsely depress this assay. Uric Acidon 12-16-2024 URIC 5.3 mg/dL Normal 2.6-6.0 [facility] Comment on above: Result Comment: The drugs N-Acetylcysteine and Metamizole may falsely depress this assay. Performed By: #### B SHYANN, L100.0100 #### [facility] [address] [place], [address] White blood cell (WBC) count Ordered By: Mariajose Nickerson on 12-16-2024 WBC (Bld) [#/Vol] 8.3 10*3/uL 4.4-11.0 [facility] CNPNon 12-15-2024 CNPN Normal [facility] Bedside Glucoseon 12-09-2024 FINGERSTICK GLU 97 mg/dL Normal 74-106 [facility] Comment on above: Result Comment: ELLEN GEMENT OF PATIENT CARE PER NURSING PROTOCOL Performed By: #### L 100.0100, L500.2500 #### [facility] [address] [place], [address] FINGERSTICK GLU 101 mg/dL Normal 74-106 [facility] Comment on above: Result Comment: ELLEN GEMENT OF PATIENT CARE PER NURSING PROTOCOL Performed By: #### L 400.0001 #### [facility] [address] [place], [address] Glucose measurement at [facility] deOrdered By: William Gramajo on 12-09-2024 Glucose [Mass/Vol] 97 mg/dL 74-106 [facility] Comment on above: MANAGEMENT OF PATIEN T CARE PER NURSING PROTOCOL Bedside Glucoseon 12-08-2024 FINGERSTICK GLU 125 mg/dL High 74-106 [facility] Comment on above: Result Comment: ELLEN GEMENT OF PATIENT CARE PER NURSING PROTOCOL Performed By: #### B TS, L100.0100 #### [facility] [address] [place], [address] FINGERSTICK GLU 93 mg/dL Normal 74-106 [facility] Comment on above: Result Comment: ELLEN GEMENT OF PATIENT CARE PER NURSING PROTOCOL Performed By: #### L 100.0100, L500.2500 #### [facility] [address] [place], [address] FINGERSTICK GLU 104 mg/dL Normal 74-106 [facility] Comment on above: Result Comment: ELLEN GEMENT OF PATIENT CARE PER NURSING PROTOCOL Performed By: #### B TS, L100.0100 #### [facility] [address] [place], [address] FINGERSTICK GLU 132 mg/dL High 74-106 [facility] Comment on above: Result Comment: ELLEN GEMENT OF PATIENT CARE PER NURSING PROTOCOL Performed By: #### L 400.0001 #### [facility] [address] [place], [address] CNPNon 12-08-2024 CNPN Normal [facility] Absolute lymphocyte countOrd ered By: William Gramajo on 12-07-2024 Lymphocytes Auto (Unsp spec) [#/Vol] 1.98 10*3/uL 0.83-4.51 [facility] Absolute neutrophil countOrd ered By: William Gramajo on 12-07-2024 Neutrophils (Bld) [#/Vol] 6.3 10*3/uL 2.0-7.7 [facility] Amphetamine detection with 1 000 ng/mL as cutoffOrdered By: William Gramajo on 12-07-2024 Amphetamines Screen method >1000 ng/mL Ql (U) Negative < 200 ng/mL [facility] Automated blood erythrocyte countOrdered By: William Gramajo on 12-07-2024 RBC (Bld) [#/Vol] 4.25 10*6/uL Normal 4.2-5.4 [facility] Comment on above: Performed By: #### B TS, L100.0100 #### [facility] [address] [place], [address] Automated blood hematocrit ( percentage)Ordered By: William Gramajo on 12-07-2024 Hematocrit (Bld) [Volume fraction] 36.0 % Low 37-47 [facility] Comment on above: Performed By: #### B TS, L100.0100 #### [facility] [address] [place], [address] Automated lymphocyte count a s percentage of total leukocytesOrdered By: William Gramajo on 12-07-2024 Lymphocytes/100 WBC Auto (Unsp spec) 22.0 % 19-41 [facility] Basophil percentageOrdered B y: William Gramajo on 12-07-2024 Basophils/100 WBC (Bld) 0.4 % Normal 0-1 [facility] Comment on above: Performed By: #### B TS, L100.0100 #### [facility] [address] [place], [address] Bedside Glucoseon 12-07-2024 FINGERSTICK GLU 143 mg/dL High 74-106 [facility] Comment on above: Result Comment: ELLEN GEMENT OF PATIENT CARE PER NURSING PROTOCOL Performed By: #### Jo TS, L100.0100 #### [facility] [address] [place], [address] FINGERSTICK GLU 118 mg/dL High 74-106 [facility] Comment on above: Result Comment: ELLEN GEMENT OF PATIENT CARE PER NURSING PROTOCOL Performed By: #### L 400.0001 #### [facility] [address] [place], [address] FINGERSTICK GLU 73 mg/dL Low 74-106 [facility] Comment on above: Result Comment: ELLEN GEMENT OF PATIENT CARE PER NURSING PROTOCOL Performed By: #### L 100.0100, L500.2500 #### [facility] [address] [place], [address] FINGERSTICK GLU 99 mg/dL Normal 74-106 [facility] Comment on above: Result Comment: ELLEN GEMENT OF PATIENT CARE PER NURSING PROTOCOL Performed By: #### L 400.0001 #### [facility] [address] [place], [address] CBC W/Diff, Automatedon 07- Absolute Lymph 1.98 X10 3/uL Normal 0.83-4.51 [facility] Comment on above: Performed By: #### Jo KWON, L100.0100 #### [facility] [address] [place], [address] Absolute Neut 6.3 X10 3/uL Normal 2.0-7.7 [facility] Comment on above: Performed By: #### Jo KWON, L100.0100 #### [facility] [address] [place], [address] IG% 0.600 Normal 0.0-0.9 [facility] Comment on above: Result Comment: IG% - Immature Granulocytes (promyelocytes, myelocytes and metamyelocytes) > 1% indicates that a LEFT SHIFT is Present. Performed By: #### Jo KWON, L100.0100 #### [facility] [address] [place], [address] Lymphocytes/100 WBC (Bld) 22.0 % Normal 19-41 [facility] Comment on above: Performed By: #### Jo KWON, L100.0100 #### [facility] [address] [place], [address] Nucleated RBC (Bld) [#/Vol] 0 10*3/uL Normal 0-5 [facility] Comment on above: Performed By: #### Jo KWON, L100.0100 #### [facility] [address] [place], [address] RDW SD 41.1 fl Normal 35.1-43.9 [facility] Comment on above: Performed By: #### Jo KWON, L100.0100 #### [facility] [address] [place], [address] Eosinophil percentageOrdered By: William Gramajo on 12-07-2024 Eosinophils/100 WBC (Bld) 1.0 % Normal 0-5 [facility] Comment on above: Performed By: #### B TS, L100.0100 #### [facility] [address] [place], [address] Erythrocyte distribution wid th ratioOrdered By: William Gramajo on 12-07-2024 Erythrocyte distribution width (RBC) [Ratio] 13.4 % Normal 11.6-14.6 [facility] Comment on above: Performed By: #### B TS, L100.0100 #### [facility] [address] [place], [address] Erythrocyte distribution wid th standard deviationOrdered By: William Gramajo on 12-07-2024 Erythrocyte distribution width (RBC) [Ratio] 41.1 fl 35.1-43.9 [facility] H AND P Exam - OB/GYNon 07- H&P Exam - AIR TWISTER WINDER [facility] Medical Records Department [address] [place] [address] H P Exam - AIR TWISTER WINDER 12/07/24 1223 MR#: [id number] Acct: [id number] Name: MELISSA BYRNE Rep #: [id number] : 1995 29 From: William Gramajo MD PCP: Dr. Jamari Byrne MD Status:ADM IN Location: [place] [address] HPI - General General Date of Admission: [...] MD; Dr. William Gramajo MD Signed Normal [facility] Hemoglobin measurementOrdere d By: William Gramajo on 12-07-2024 Hemoglobin (Bld) [Mass/Vol] 12.1 g/dL Normal 12.0-15.0 [facility] Comment on above: Performed By: #### B TS, L100.0100 #### [facility] [address] [facility]. [place], [place], [address] Immature granulocytes/100 WB C Auto (Bld)Ordered By: William Gramajo on 12-07-2024 Immature granulocytes/100 WBC (Bld) 0.600 % 0.0-0.9 [facility] Comment on above: IG% - Immature Granu locytes (promyelocytes, myelocytes and metamyelocytes) > 1% indicates that a LEFT SHIFT is Present. MCV (mean corpuscular volume ) determinationOrdered By: William Gramajo on 12-07-2024 MCV (RBC) [Entitic vol] 84.7 fL Normal 81-99 [facility] Comment on above: Performed By: #### B TS, L100.0100 #### [facility] [address] [facility] [place], [address] MR/OB.VAGDELIon 12-07-2024 [facility] Medical Records Department [address] [place] [address] OB Vaginal Delivery 12/07/242023 MR#: [id number] Acct: [id number] Name: MELISSA BYRNE Rep #: [id number] : 1995 29 From: William Gramajo MD PCP: Dr. Jamari Byrne MD Status:ADM IN [id number] Maternal Data Information ADA Calculator Estimated Delivery [...] (5 minute): 10 Delayed Cord Clamping: Yes [place] hand splitter: No Post Vaginal Deli Medications given after delivery: IV Pitocin Episiotomy Description: None Laceration: None Complication Complications: No 12/07/242025 Cosigner Signature (if applicable): CC: Dr. Jamari Byrne MD; Dr. William Gramajo MD Signed Normal [facility] Mean corpuscular hemoglobin (MCH) determinationOrdered By: William Gramajo on 12-07-2024 MCH (RBC) [Entitic mass] 28.5 pg Normal 27.0-32.0 [facility] Comment on above: Performed By: #### Jo KWON, L100.0100 #### [facility] [address] [place], [address] Mean corpuscular hemoglobin concentration (MCHC) determinationOrdered By: William Gramajo on 12-07-2024 MCHC (RBC) [Mass/Vol] 33.6 g/dL Normal 32-36 [facility] Comment on above: Performed By: #### Jo KWON, L100.0100 #### [facility] [address] [place], [address] Mean platelet volume determi nationOrdered By: William Gramajo on 12-07-2024 Platelet mean volume (Bld) [Entitic vol] 9.7 fL Normal 6.2-12.0 [facility] Comment on above: Performed By: #### Jo KWON, L100.0100 #### [facility] [address] [place], [address] Monocyte percentageOrdered B y: William Gramajo on 12-07-2024 Monocytes/100 WBC (Bld) 6.0 % Normal 0-10 [facility] Comment on above: Performed By: #### Jo KWON, L100.0100 #### [facility] [address] [place], [address] Neutrophil percentageOrdered By: William Gramajo on 12-07-2024 Neutrophils/100 WBC (Bld) 70.0 % Normal 47-70 [facility] Comment on above: Performed By: #### Jo KWON, L100.0100 #### [facility] [address] [place], [address] No Panel InformationOrdered By: William Gramajo on 12-07-2024 Urine Buprenorphine Qualitative Negative < 200 ng/mL [facility] Urine Oxycodone Screen Negative < 100 ng/mL [facility] Nucleated red blood cell per centageOrdered By: William Gramajo on 12-07-2024 Nucleated RBC/100 WBC (Bld) [Ratio] 0 % 0-5 [facility] Platelet countOrdered By: Nickolas mashaquille Avila on 12-07-2024 Platelets (Bld) [#/Vol] 230 10*3/uL Normal 150-450 [facility] Comment on above: Performed By: #### B SHYANN, L100.0100 #### [facility] [address] [place], [address] Quantitative urine opiates m easurementOrdered By: William Gramajo on 12-07-2024 Opiates Ql (U) Negative < 300 ng/mL [facility] Screening urine fentanyl brigitte surementOrdered By: William Gramajo on 12-07-2024 fentaNYL Screen Ql (U) Negative [facility] Syphilis Antibodieson 2024 Syphilis Abs Non-Reactive Normal Nonreactive [facility] Comment on above: Performed By: #### L 400.0001 #### [facility] [address] [place], [address] Type AND Screenon 12-07-2024 Ab SCREEN GEL Negative Normal [facility] Comment on above: Order Comment: Labor Performed By: #### B SHYANN, L100.0100 #### [facility] [address] [place], [address] Ur Drg Scn w/Rflx AMPH Confi rmon 12-07-2024 DRUG CONFIRM Normal [facility] Comment on above: Order Comment: CLEAN [...] UTCA Performed By: #### L 400.0001 #### [facility] [address] [facility] [address] VISTA UDS PH Normal [facility] Comment on above: Order Comment: CLEAN CATCH Performed By: #### L 400.0001 #### [facility] [address] [facility] [address] Urine Drug Screen (VISTA)on 12-07-2024 BARBITIURATES Normal < 200 ng/mL [facility] Comment on above: Order Comment: CLEAN CATCH Performed By: #### L 400.0001 #### [facility] [address] [place] [id number] BENZODIAZIPINE Normal < 200 ng/mL [facility] Comment on above: Order Comment: CLEAN CATCH Performed By: #### L 400.0001 #### [facility] [address] [place] [address] BUP Ur Drug Scr Normal < 200 ng/mL [facility] Comment on above: Order Comment: CLEAN CATCH Performed By: #### L 400.0001 #### [facility] [address] [place] [address] COCAINE Normal < 300 ng/mL [facility] Comment on above: Order Comment: CLEAN CATCH Performed By: #### L 400.0001 #### [facility] [address] [place] [address] Fentanyl Normal [facility] Comment on above: Order Comment: CLEAN CATCH Performed By: #### L 400.0001 #### [facility] [address] [facility] [address] METHADONE Normal < 300 ng/mL [facility] Comment on above: Order Comment: CLEAN CATCH Performed By: #### L 400.0001 #### [facility] [address] [facility] [address] OPIATES Normal < 300 ng/mL [facility] Comment on above: Order Comment: CLEAN CATCH Performed By: #### L 400.0001 #### [facility] [address] [place], [place], [address] OXYCODONE Normal < 100 ng/mL [facility] Comment on above: Order Comment: CLEAN CATCH Performed By: #### L 400.0001 #### [facility] [address] [place] [id number] PCP Normal < 25 ng/mL [facility] Comment on above: Order Comment: CLEAN CATCH Performed By: #### L 400.0001 #### [facility] [address] [place] [id number] THC Normal < 50 ng/mL [facility] Comment on above: Order Comment: CLEAN CATCH Performed By: #### L 400.0001 #### [facility] [address] [place] [address] Urine benzodiazepine levelOr dered By: William Gramajo on 12-07-2024 Benzodiazepines Ql (U) Negative < 200 ng/mL [facility] Urine cocaine levelOrdered B y: William Gramajo on 12-07-2024 Cocaine Ql (U) Negative < 300 ng/mL [facility] Urine iklup-2-gexnoogfbqsrji abinol (THC) measurementOrdered By: William Gramajo on 12-07-2024 Cannabinoids Screen Ql (U) Negative < 50 ng/mL [facility] Urine phencyclidine (PCP) de tectionOrdered By: William Gramajo on 12-07-2024 Phencyclidine Ql (U) Negative < 25 ng/mL [facility] White blood cell (WBC) count Ordered By: William Gramajo on 12-07-2024 WBC (Bld) [#/Vol] 9.0 10*3/uL Normal 4.4-11.0 [facility] Comment on above: Performed By: #### B TS, L100.0100 #### [facility] [address] [place] [id number] CNPNon 12-06-2024 CNPN Normal [facility] Biophysical profile.tammy dy movement USon 12-06-2024 [facility] Radiology Study observation (narrative) [facility] URINE OB DIP B/Oon 5 Glucose Ql (U) 100 mg/dL Neg [facility] Interpretation and review of laboratory results Normal [facility] Protein.monoclonal (U) [Mass/Vol] Negative Neg mg/dL [facility] CNPNon 12-01-2024 CNPN Normal [facility] Biophysical profile.tammy dy movement USon 11-30-2024 [facility] Radiology Study observation (narrative) [facility] CNPNon 11-25-2024 CNPN Normal [facility] URINE OB DIP B/Oon 5 Glucose Ql (U) Negative Neg mg/dL [facility] Interpretation and review of laboratory results Normal [facility] Protein.monoclonal (U) [Mass/Vol] Negative Neg mg/dL [facility] Biophysical profile.tammy dy movement USon 11-22-2024 [facility] Radiology Study observation (narrative) [facility] OB Triage Physician Noteon 0 11-19-2024 OB Triage Physician Note [facility] Medical Records Department [address] [address] OB Triage Physician Note 11/19/24 0712 MR#: [id number] Acct: [id number] Name: MELISSA BYRNE Rep #: [id number] : 1995 29 From: Whit Patel MD PCP: Dr. Jamari Byrne MD Status:DEP CLI Y Location: [facility] HPI - General General Date of [...] MD; Dr. Jamari Byrne MD Signed Normal [facility] BACTERIAL VAGINOSIS NAATon 0 11-18-2024 Lactobacillus crispatus+gasseri+dez senii + Gardnerella vaginalis + Atopobium vaginae rRNA SUMIT+probe Ql (Vag fld) Not detected Normal Not detected [facility] Comment on above: Order Comment: Speci men Type: SWABOrdering Facility: [facility] Address: [address] [place] [address] Performed By: #### B VAMP, CVTV ####[facility] LABIA [id number] [address] [place] JOSUÉ/TRICHOMONAS NAATon 0 11-18-2024 C. glabrata RNA SUMIT+probe Ql (Vag fld) Not detected Normal Not detected [facility] Comment on above: Order Comment: Speci men Type: SWABOrdering Facility: [facility] Address: [address] [place] [address] Performed By: #### B VAMP, CVTV ####[facility] LABCLIA [id number] [place] [address] [place] Josué sp DNA SUMIT+probe Ql (Vag fld) Not detected Normal Not detected [facility] Comment on above: Order Comment: Speci men Type: SWABOrdering Facility: [facility] Address: [address] [place] [address] Result Comment: The Josué species group target includes C. albicans, C. tropicalis, C. parapsilosis, and C. dubliniensis. Performed By: #### B VAMP, CVTV ####[facility] LABCLIA [id number] [address] [place] T. vaginalis DNA SUMIT+probe Ql (Unsp spec) Not detected Normal Not detected [facility] Comment on above: Order Comment: Speci men Type: SWABOrdering Facility: [facility] Address: [address] [place] [address] Performed By: #### B VAMP, CVTV ####[facility] LABCLIA [id number] [place] [address] [place] Urine Cultureon 11-17-2024 [facility] Comments: urine in l ab Mixed Gram Positive Organisms [place] Count 11,000-25,000 MIXC Mixed contaminants. Submit a new specimen if indicated. Normal [facility] Comment on above: Performed By: #### M 100.2200 ####[facility] [id number] [place], [address] CNPNon 11-16-2024 CNPN Normal [facility] Amorphous sediment detection in urine sediment by light microscopyOrdered By: Whit Patel on 11-15-2024 Amorphous sediment LM Ql (Urine sed) 1+ [facility] Bilirubin Test strip Ql (U)O rdered By: Whit Patel on 11-15-2024 Bilirubin Ql (U) Negative Negative [facility] Calcium oxalate crystals det ection in urine sediment by light microscopyOrdered By: Whit Patel on 11-15-2024 Calcium oxalate crystals LM Ql (Urine sed) 2+ /hpf [facility] Biophysical profile.tammy dy movement USon 11-15-2024 [facility] Radiology Study observation (narrative) [facility] Ketones Test strip Ql (U)Ord ered By: Whit Patel on 11-15-2024 Ketones Ql (U) 5 mg/dl High Negative [facility] Microscopic analysis of urin e for red blood cells (RBC)Ordered By: Whit Patel on 11-15-2024 Microscopic analysis of urine for red blood cells (RBC) 0-5 SEEN /hpf 0-5 [facility] Mucus LM Ql (Urine sed)Order ed By: Whit Patel on 11-15-2024 Mucus Ql (Urine sed) 0 SEEN /hpf [facility] Nitrite Test strip Ql (U)Ord ered By: Whit Patel on 11-15-2024 Nitrite Ql (U) Negative Negative [facility] Protein Test strip Ql (U)Ord ered By: Whit Patel on 11-15-2024 Protein Ql (U) 15 mg/dl High Negative [facility] Squamous epithelial cells de tection in urine sediment by light microscopyOrdered By: Whit Patel on 11-15-2024 Epithelial cells.squamous LM Ql (Urine sed) 5-10 SEEN /hpf 5-10 [facility] URINE OB DIP B/Oon Glucose Ql (U) Negative Neg mg/dL [facility] Interpretation and review of laboratory results Normal [facility] Protein.monoclonal (U) [Mass/Vol] Negative Neg mg/dL [facility] Urinalysis, Completeon 11-15 AMORPHOUS 1+ Normal [facility] Comment on above: Order Comment: CLEAN CATCH Performed By: #### L 400.0001 #### [facility] [address] [place], [place], [id number] BACTERIA 2+ /hpf Normal None Seen [facility] Comment on above: Order Comment: CLEAN CATCH Performed By: #### L 400.0001 #### [facility] [address] [place], [place], [address] CA OX CRYSTAL 2+ /hpf Normal [facility] Comment on above: Order Comment: CLEAN CATCH Performed By: #### L 400.0001 #### [facility] [address] [place], [address] EPI,SQUAMOUS 5-10 SEEN Normal 5-10 [facility] Comment on above: Order Comment: CLEAN CATCH Performed By: #### L 400.0001 #### [facility] [address] [place], [address] RBC 0-5 SEEN Normal 0-5 [facility] Comment on above: Order Comment: CLEAN CATCH Performed By: #### L 400.0001 #### [facility] [address] [place], [address] WBC 0-5 SEEN Normal 0-5 [facility] Comment on above: Order Comment: CLEAN CATCH Performed By: #### L 400.0001 #### [facility] [address] [place], [address] Mucus Ql (Urine sed) 0 SEEN Normal [facility] Comment on above: Order Comment: CLEAN CATCH Performed By: #### L 400.0001 #### [facility] [address] [place], [address] Urine clarityOrdered By: Solomon on 11-15-2024 Clarity (U) Clear Clear [facility] Urine color determinationOrd ered By: Whit Patel on 11-15-2024 Color (U) Yellow Yellow [facility] Urine cultureOrdered By: Solomon on 11-15-2024 Bacteria identified Cx Nom (U) Positive Abnormal [facility] Urine glucose detectionOrder ed By: Whit Patel on 11-15-2024 Glucose Ql (U) 1000 mg/dl High Normal [facility] Urine leukocyte esterase det ection by dipstickOrdered By: Whit Schulte on 11-15-2024 Leukocyte esterase Test strip Ql (U) Negative Negative [facility] Urine pHOrdered By: Whit Collado on 11-15-2024 pH (U) 6.0 [pH] 5.0 - 8.0 [facility] Urine sediment bacteria coun t by microscopy (number/high power field)Ordered By: Whit Patel on 11-15-2024 Bacteria LM.HPF (Urine sed) [#/Area] 2 /[HPF] None Seen [facility] Urine specific gravity measu rementOrdered By: Whit Patel on 11-15-2024 Specific gravity (U) [Rel density] 1.030 1.002-1.030 [facility] Urine urobilinogen measureme ntOrdered By: Whit Patel on 11-15-2024 Urobilinogen Ql (U) 1 mg/dl High Normal [facility] White blood cell countOrdere d By: Whit Patel on 11-15-2024 White blood cell count 0-5 SEEN /hpf 0-5 [facility] URINE OB DIP B/Oon Glucose Ql (U) Negative Neg mg/dL [facility] Protein.monoclonal (U) [Mass/Vol] Negative Neg mg/dL [facility] Biophysical profile.tammy dy movement USon 11-08-2024 [facility] Radiology Study observation (narrative) [facility] BILE ACIDS FRACT BLDon 11-05 CHENODEOXYCHOLIC ACID 0.8 umol/L Normal 0.0-3.4 [facility] Comment on above: Order Comment: Speci men Type: BLOOD SPECIMENOrdering Facility: [facility] Address: [address] [place] [address] Performed By: #### B ILE ####[facility] [id number] [place] [address] CHOLIC ACID 0.8 umol/L Normal 0.0-1.9 [facility] Comment on above: Order Comment: Speci men Type: BLOOD SPECIMENOrdering Facility: [facility] Address: [address] [place] [address] Performed By: #### B ILE ####[facility] LABORATORIESCLIA [id number] [place] [address] DEOXYCHOLIC ACID 1.8 umol/L Normal 0.0-2.5 [facility] Comment on above: Order Comment: Speci men Type: BLOOD SPECIMENOrdering Facility: [facility] Address: [address] [place] [address] Performed By: #### B ILE ####[facility] LABORATORIESCLIA [id number] [place] [address] TOTAL BILE ACIDS 3.7 umol/L Normal 0.0-7.0 [facility] Comment on above: Order Comment: Speci men Type: BLOOD SPECIMENOrdering Facility: [facility] Address: [address] [place] [address] Result Comment: INTE RPRETIVE INFORMATION: Bile Acids, Fractionated and TotalThis test was developed and its performance characteristicsdetermined by [employer]. It has not been cleared orapproved by the [place] Food and Drug Administration. This test wasperformed in a CLIA certified laboratory and is intended forclinical purposes.Performed By: [employer] [place], [place] [id number] Director: Cristofer Voss MD, PhDCLIA Number: [id number] Performed By: #### B ILE ####[facility] LABORATORIESCLIA [id number] [place] [address] URSODEOXYCHOLIC ACID 0.3 umol/L Normal 0.0-1.0 [facility] Comment on above: Order Comment: Speci men Type: BLOOD SPECIMENOrdering Facility: [facility] Address: [address] [id number] Performed By: #### B ILE ####[facility] LABORATORIESCLIA [id number] [place] [address] BILE ACIDS, TOTALon 11-06-19 25 Bile acid [Moles/Vol] 6.0 umol/L Normal <7.5 [facility] Comment on above: Order Comment: Speci men Type: BLOOD SPECIMENOrdering Facility: [facility] Address: [address] [id number] Result Comment: Refe rence interval applies to [...] 10.4 umol/L Performed By: #### B FREDERICK ####[facility] LABCLIA [id number] [place] [id number] [place] [facility] Comprehensive metabolic 2000 panelOrdered By: Jayne Burnner on 11-05-2024 Albumin [Mass/Vol] 3.6 g/dL Low 3.9 - 4.9 g/dL [facility] ALP [Catalytic activity/Vol] 83 U/L 34 - 123 U/L [facility] ALT [Catalytic activity/Vol] 10 U/L 7 - 38 [facility] Anion gap [Moles/Vol] 11 mmol/L 8 - 15 mmol/L [facility] AST [Catalytic activity/Vol] 9 U/L Low 13 - 35 U/L [facility] Bilirubin [Mass/Vol] 0.3 mg/dL 0.2 - 1 .3 mg/dL [facility] Calcium [Mass/Vol] 9 mg/dL 8.5 - 10. 2 mg/dL [facility] Chloride [Moles/Vol] 103 mmol/L 98 - 10 7 mmol/L [facility] CO2 [Moles/Vol] 21 mmol/L Low 22 - 30 mmol/L [facility] Creatinine [Mass/Vol] 0.42 mg/dL Low 0.58 - 0.96 mg/dL [facility] GFR/1.73 sq M.predicted among non-blacks MDRD (S/P/Bld) [Vol rate/Area] 136 mL/min/{1.73_m2} - PINF [facility] Comment on above: Estimated Glomerular Filtration [...] 115 mg/dL High 74 - 99 mg/dL [facility] Comment on above: The [place] Diabete s Association (ADA) provides guidance for [...] Standards of Medical Care in Diabetes 2016, [place] [employer]. Diabetes Care. 2016.39(Suppl 1). Interpretation and review of laboratory results Abnormal [facility] Potassium [Moles/Vol] 3.8 mmol/L 3.7 - 5.1 mmol/L [facility] Protein [Mass/Vol] 6.9 g/dL 6.3 - 8.0 g/dL [facility] Sodium [Moles/Vol] 135 mmol/L Low 136 - 144 mmol/L [facility] Urea nitrogen [Mass/Vol] 7 mg/dL 7 - 21 mg/dL [facility] Comprehensive metabolic 2000 panelon 11-05-2024 Albumin [Mass/Vol] 3.6 g/dL Low 3.9-4.9 [facility] Comment on above: Order Comment: Speci men Type: BLOOD SPECIMENOrdering Facility: [facility] Address: [address] [place] [address] Performed By: #### 2 4323-8 ####[facility]AL[facility] [id number] [place] [address] [place] ALP [Catalytic activity/Vol] 83 U/L Normal 34-123 [facility] Comment on above: Order Comment: Speci men Type: BLOOD SPECIMENOrdering Facility: [facility] Address: [address] [place] [address] Performed By: #### 2 4323-8 ####[facility]ENTERLIA [id number] [place] [address] [place] ALT [Catalytic activity/Vol] 10 U/L Normal 7-38 [facility] Comment on above: Order Comment: Speci men Type: BLOOD SPECIMENOrdering Facility: [facility] Address: [address] [place] [address] Performed By: #### 2 4323-8 ####[facility]ENTERLIA [id number] [place] [address] [place] Anion gap [Moles/Vol] 11 mmol/L Normal 8-15 [facility] Comment on above: Order Comment: Speci men Type: BLOOD SPECIMENOrdering Facility: [facility] Address: [address] [place] [address] Performed By: #### 2 4323-8 ####[facility] BOULEVARDNCLIA [id number] [place] [address] [place] AST [Catalytic activity/Vol] 9 U/L Low 13-35 [facility] Comment on above: Order Comment: Speci men Type: BLOOD SPECIMENOrdering Facility: [facility] Address: [address] [place] [address] Performed By: #### 2 4323-8 ####[facility] MILLTOWNCLIA [id number] [place] [address] [place] Bilirubin [Mass/Vol] 0.3 mg/dL Normal 0.2-1.3 [facility] Comment on above: Order Comment: Speci men Type: BLOOD SPECIMENOrdering Facility: [facility] Address: [address] [place] [address] Performed By: #### 2 4323-8 ####[facility] MILLRYANNEWKLAUSLIA [id number] [place] [address] [place] Calcium [Mass/Vol] 9.0 mg/dL Normal 8.5-10.2 [facility] Comment on above: Order Comment: Speci men Type: BLOOD SPECIMENOrdering Facility: [facility] Address: [address] [place] [address] Performed By: #### 2 4323-8 ####[facility] MILLTOWNCLIA [id number] [place] [address] [place] Chloride [Moles/Vol] 103 mmol/L Normal 98-107 [facility] Comment on above: Order Comment: Speci men Type: BLOOD SPECIMENOrdering Facility: [facility] Address: [address] [place] [address] Performed By: #### 2 4323-8 ####[facility] MILLTOWNCLIA [id number] [place] [address] [place] CO2 [Moles/Vol] 21 mmol/L Low 22-30 [facility] Comment on above: Order Comment: Speci men Type: BLOOD SPECIMENOrdering Facility: [facility] Address: [address] [place] [address] Performed By: #### 2 4323-8 ####[facility] [id number] [place] [address] [place] Creatinine [Mass/Vol] 0.42 mg/dL Low 0.58-0.96 [facility] Comment on above: Order Comment: Gume escobedo Type: BLOOD SPECIMENOrdering Facility: [facility] Address: [address] [place] [address] Performed By: #### 2 4323-8 ####[facility] [id number] [place] [address] [place] Creatinine and Glomerular filtration rate.predicted panel (S/P/Bld) 136 mL/min/1.73m??? Normal >=60 [facility] Comment on above: Order Comment: Gume escobedo Type: BLOOD SPECIMENOrdering Facility: [facility] Address: [address] [place] [address] Result Comment: Ascencion mated Glomerular Filtration Rate [...] actual GFR. Performed By: #### 2 4323-8 ####[facility] [id number] [place] [address] [place] Glucose [Mass/Vol] 115 mg/dL High 74-99 [facility] Comment on above: Order Comment: Gume escobedo Type: BLOOD SPECIMENOrdering Facility: [facility] Address: [address] [place] [address] Result Comment: The [place] Diabetes Association (ADA) provides guidance for cutoff [...] Standards of Medical Care in Diabetes 2016, [place] Diabetes Association. Diabetes Care. 2016.39(Suppl 1). Performed By: #### 2 4323-8 ####[facility] BOU[facility]ARDNCLIA [id number] [place] [address] [place] Potassium [Moles/Vol] 3.8 mmol/L Normal 3.7-5.1 [facility] Comment on above: Order Comment: Speci men Type: BLOOD SPECIMENOrdering Facility: [facility] Address: [address] [place] [address] Performed By: #### 2 4323-8 ####[facility]ARDNCSTEWARD HEALTH [facility] [id number] [place] [address] [place] Protein [Mass/Vol] 6.9 g/dL Normal 6.3-8.0 [facility] Comment on above: Order Comment: Speci men Type: BLOOD SPECIMENOrdering Facility: [facility] Address: [address] [place], [place] [address] Performed By: #### 2 4323-8 ####[facility] [id number] [place] [address] [place] Sodium [Moles/Vol] 135 mmol/L Low 136-144 [facility] Comment on above: Order Comment: Speci men Type: BLOOD SPECIMENOrdering Facility: [facility] Address: [address] [place] [address] Performed By: #### 2 4323-8 ####[facility]ENTERLI [id number] [place] [address] [place] Urea nitrogen [Mass/Vol] 7 mg/dL Normal 7-21 [facility] Comment on above: Order Comment: Speci men Type: BLOOD SPECIMENOrdering Facility: [facility] Address: [address] [place] [address] Performed By: #### 2 4323-8 ####[facility] CENTERRaymond [id number] [place] [address] [place] URINE OB DIP B/Oon 5 Glucose Ql (U) 250 mg/dL Neg [facility] Interpretation and review of laboratory results Normal [facility] Protein.monoclonal (U) [Mass/Vol] Negative Neg mg/dL [facility] CNCNPATEDon 11-04-2024 CNCNPATED Normal [facility] CNOVon 11-04-2024 CNOV Normal [facility] CNPNon 11-02-2024 CNPN Normal [facility] Examination level ultrasound on 11-02-2024 [facility] Radiology Study observation (narrative) [facility] URINE OB DIP B/Oon 5 Glucose Ql (U) 1000 mg/dL Neg [facility] Interpretation and review of laboratory results Abnormal [facility] Protein.monoclonal (U) [Mass/Vol] Negative Neg mg/dL [facility] CNPNon 10-29-2024 CNPN Normal [facility] CNPNon 10-27-2024 CNPN Normal [facility] CBC panel Auto (Bld)on 10-25 Erythrocyte distribution width (RBC) [Ratio] 12.9 % 11.5 - 15.0 % [facility] Hematocrit (Bld) [Volume fraction] 36 % 36.0 - 46.0 % [facility] Hemoglobin (Bld) [Mass/Vol] 12.4 g/dL 11.5 - 15.5 g/dL [facility] Interpretation and review of laboratory results Normal [facility] MCH (RBC) [Entitic mass] 29.5 pg 26.0 - 34.0 pg [facility] MCHC (RBC) [Mass/Vol] 34.4 g/dL 30.5 - 36.0 g/dL [facility] MCV (RBC) [Entitic vol] 85.5 fL 80.0 - 100.0 fL [facility] Nucleated RBC (Bld) [#/Vol] NINF [facility] Platelet mean volume (Bld) [Entitic vol] 9.6 fL 9.0 - 12.7 fL [facility] Platelets (Bld) [#/Vol] 274 10*3/uL [facility] RBC (Bld) [#/Vol] 4.21 10*6/uL 3.90 - 5.2 0 m/uL [facility] WBC (Bld) [#/Vol] 8.6 10*3/uL [facility] Erythrocyte distribution width (RBC) [Ratio] 12.9 % Normal 11.5-15.0 [facility] Comment on above: Order Comment: Speci men Type: BLOOD SPECIMENOrdering Facility: [facility] Address: [address] [place], [place] [address] Performed By: #### 5 8410-2 ####[facility] BOULEVARDKLAUSRaymond [id number] [place] [address] [place] Hematocrit (Bld) [Volume fraction] 36.0 % Normal 36.0-46.0 [facility] Comment on above: Order Comment: Speci men Type: BLOOD SPECIMENOrdering Facility: [facility] Address: [address] [place] [address] Performed By: #### 5 8410-2 ####[facility] [id number] [address] [place] Hemoglobin (Bld) [Mass/Vol] 12.4 g/dL Normal 11.5-15.5 [facility] Comment on above: Order Comment: Speci men Type: BLOOD SPECIMENOrdering Facility: [facility] Address: [address] [place] [address] Performed By: #### 5 8410-2 ####[facility] [id number] [place] [address] [place] MCH (RBC) [Entitic mass] 29.5 pg Normal 26.0-34.0 [facility] Comment on above: Order Comment: Speci men Type: BLOOD SPECIMENOrdering Facility: [facility] Address: [address] [place] [address] Performed By: #### 5 8410-2 ####[facility] MILLTOWNCLIA [id number] [place] [address] [place] MCHC (RBC) [Mass/Vol] 34.4 g/dL Normal 30.5-36.0 [facility] Comment on above: Order Comment: Speci men Type: BLOOD SPECIMENOrdering Facility: [facility] Address: [address] [place] [address] Performed By: #### 5 8410-2 ####[facility] MILLMCHENRYNCLIA [id number] [place] [address] [place] MCV (RBC) [Entitic vol] 85.5 fL Normal 80.0-100.0 [facility] Comment on above: Order Comment: Speci men Type: BLOOD SPECIMENOrdering Facility: [facility] Address: [address] [place] [address] Performed By: #### 5 8410-2 ####[facility] BOULEVARDNCLIA [id number] [place] [address] [place] Nucleated RBC (Bld) [#/Vol] 10*3/uL Normal <0.01 [facility] Comment on above: Order Comment: Speci men Type: BLOOD SPECIMENOrdering Facility: [facility] Address: [address] [place] [address] Performed By: #### 5 8410-2 ####[facility] BOULEVARDNCLIA [id number] [place] [address] [place] Platelet mean volume (Bld) [Entitic vol] 9.6 fL Normal 9.0-12.7 [facility] Comment on above: Order Comment: Speci men Type: BLOOD SPECIMENOrdering Facility: [facility] Address: [address] [place] [address] Performed By: #### 5 8410-2 ####[facility] BOULEVARDKLAUSLIA [id number] [place] [address] [place] Platelets (Bld) [#/Vol] 274 10*3/uL Normal 150-400 [facility] Comment on above: Order Comment: Speci men Type: BLOOD SPECIMENOrdering Facility: [facility] Address: [address] [place] [address] Performed By: #### 5 8410-2 ####[facility] BOULEVARDNCSTEWARD HEALTH CARE SYSTEM [id number] [place] [address] [place] RBC (Bld) [#/Vol] 4.21 10*6/uL Normal 3.90-5.20 [facility] Comment on above: Order Comment: Speci men Type: BLOOD SPECIMENOrdering Facility: [facility] Address: [address] [place] [address] Performed By: #### 5 8410-2 ####[facility] CENTERLIA [id number] [place] [address] [place] WBC (Bld) [#/Vol] 8.60 10*3/uL Normal 3.70-11.00 [facility] Comment on above: Order Comment: Speci men Type: BLOOD SPECIMENOrdering Facility: [facility] Address: [address] [place] [address] Performed By: #### 5 8410-2 ####[facility] BOULEVARDNCLIA [id number] [place] [address] [place] Comprehensive metabolic 2000 panelOrdered By: Aquiles Denny on 10-25-2024 Albumin [Mass/Vol] 3.6 g/dL Low 3.9 - 4.9 g/dL [facility] ALP [Catalytic activity/Vol] 82 U/L 34 - 123 U/L [facility] ALT [Catalytic activity/Vol] 11 U/L 7 - 38 U/L [facility] Anion gap [Moles/Vol] 14 mmol/L 8 - 15 mmol/L [facility] AST [Catalytic activity/Vol] 9 U/L Low 13 - 35 U/L [facility] Bilirubin [Mass/Vol] 0.2 mg/dL 0.2 - 1 .3 mg/dL [facility] Calcium [Mass/Vol] 9.3 mg/dL 8.5 - 10. 2 mg/dL [facility] Chloride [Moles/Vol] 104 mmol/L 98 - 10 7 mmol/L [facility] CO2 [Moles/Vol] 18 mmol/L Low 22 - 30 mmol/L [facility] Creatinine [Mass/Vol] 0.39 mg/dL Low 0.58 - 0.96 mg/dL [facility] GFR/1.73 sq M.predicted among non-blacks MDRD (S/P/Bld) [Vol rate/Area] 138 mL/min/{1.73_m2} - PINF [facility] Comment on above: Estimated Glomerular Filtration [...] 103 mg/dL High 74 - 99 mg/dL [facility] Comment on above: The [place] Diabete s Association (ADA) provides guidance for [...] Standards of Medical Care in Diabetes 2016, [place] Diabetes [employer]. Diabetes Care. 2016.39(Suppl 1). Interpretation and review of laboratory results Abnormal [facility] Potassium [Moles/Vol] 3.9 mmol/L 3.7 - 5.1 mmol/L [facility] Protein [Mass/Vol] 7 g/dL 6.3 - 8.0 g/dL [facility] Sodium [Moles/Vol] 136 mmol/L 136 - 144 mmol/L [facility] Urea nitrogen [Mass/Vol] 5 mg/dL Low 7 - 21 mg/dL [facility] Comprehensive metabolic 2000 panelon 10-25-2024 Albumin [Mass/Vol] 3.6 g/dL Low 3.9-4.9 [facility] Comment on above: Order Comment: Speci men Type: BLOOD SPECIMENOrdering Facility: [facility] Address: [address] [place] [address] Performed By: #### 2 4323-8 ####[facility] MILLTOWNCLIA [id number] [place] [address] [place] ALP [Catalytic activity/Vol] 82 U/L Normal 34-123 [facility] Comment on above: Order Comment: Speci men Type: BLOOD SPECIMENOrdering Facility: [facility] Address: [address] [place] [address] Performed By: #### 2 4323-8 ####[facility] BOULEVARDNCLIA [id number] [place] [address] [place] ALT [Catalytic activity/Vol] 11 U/L Normal 7-38 [facility] Comment on above: Order Comment: Speci men Type: BLOOD SPECIMENOrdering Facility: [facility] Address: [address] [place] [address] Performed By: #### 2 4323-8 ####[facility] MILLTOWNCLIA [id number] [place] [address] [place] Anion gap [Moles/Vol] 14 mmol/L Normal 8-15 [facility] Comment on above: Order Comment: Speci men Type: BLOOD SPECIMENOrdering Facility: [facility] Address: [address] [place] [address] Performed By: #### 2 4323-8 ####[facility] MILLTOWNCLIA [id number] [place] [address] [place] AST [Catalytic activity/Vol] 9 U/L Low 13-35 [facility] Comment on above: Order Comment: Speci men Type: BLOOD SPECIMENOrdering Facility: [facility] Address: [address] [place] [address] Performed By: #### 2 4323-8 ####[facility]PITALWNCSTEWARD [facility] [id number] [place] [address] [place] Bilirubin [Mass/Vol] 0.2 mg/dL Normal 0.2-1.3 [facility] Comment on above: Order Comment: Speci men Type: BLOOD SPECIMENOrdering Facility: [facility] Address: [address] [place] [address] Performed By: #### 2 4323-8 ####[facility] [facility] [id number] [place] [address] [place] Calcium [Mass/Vol] 9.3 mg/dL Normal 8.5-10.2 [facility] Comment on above: Order Comment: Speci men Type: BLOOD SPECIMENOrdering Facility: [facility] Address: [address] [place] [address] Performed By: #### 2 4323-8 ####[facility]NCLI [id number] [place] [address] [place] Chloride [Moles/Vol] 104 mmol/L Normal 98-107 [facility] Comment on above: Order Comment: Speci men Type: BLOOD SPECIMENOrdering Facility: [facility] Address: [address] [place] [address] Performed By: #### 2 4323-8 ####[facility] [id number] [place] [address] [place] CO2 [Moles/Vol] 18 mmol/L Low 22-30 [facility] Comment on above: Order Comment: Speci men Type: BLOOD SPECIMENOrdering Facility: [facility] Address: [address] [place] [address] Performed By: #### 2 4323-8 ####[facility] [id number] [place] [address] [place] Creatinine [Mass/Vol] 0.39 mg/dL Low 0.58-0.96 [facility] Comment on above: Order Comment: Speci men Type: BLOOD SPECIMENOrdering Facility: [facility] Address: [address] [place] [address] Performed By: #### 2 4323-8 ####[facility] [id number] [place] [address] [place] Creatinine and Glomerular filtration rate.predicted panel (S/P/Bld) 138 mL/min/1.73m??? Normal >=60 [facility] Comment on above: Order Comment: Milanai men Type: BLOOD SPECIMENOrdering Facility: [facility] Address: [address] [place] [address] Result Comment: Ascencion mated Glomerular Filtration Rate [...] 2 4323-8 ####[facility]NCLIA [id number] [place] [address] [place] Glucose [Mass/Vol] 103 mg/dL High 74-99 [facility] Comment on above: Order Comment: Speci men Type: BLOOD SPECIMENOrdering Facility: [facility] Address: [address] [place] [address] Result Comment: The [place] Diabetes Association (ADA) provides guidance for cutoff [...] Standards of Medical Care in Diabetes 2016, [place] Diabetes Association. Diabetes Care. 2016.39(Suppl 1). Performed By: #### 2 4323-8 ####[facility] MILLTOWNCLIA [id number] [place] [address] [place] Potassium [Moles/Vol] 3.9 mmol/L Normal 3.7-5.1 [facility] Comment on above: Order Comment: Speci men Type: BLOOD SPECIMENOrdering Facility: [facility] Address: [address] [place] [address] Performed By: #### 2 4323-8 ####[facility] MILLTOWNCLIA [id number] [place] [address] [place] Protein [Mass/Vol] 7.0 g/dL Normal 6.3-8.0 [facility] Comment on above: Order Comment: Milanai men Type: BLOOD SPECIMENOrdering Facility: [facility] Address: [address] [place] [address] Performed By: #### 2 4323-8 ####[facility]ITALWNCLIA [id number] [place] [address] [place] Sodium [Moles/Vol] 136 mmol/L Normal 136-144 [facility] Comment on above: Order Comment: Speci men Type: BLOOD SPECIMENOrdering Facility: [facility] Address: [address] [place] [address] Performed By: #### 2 4323-8 ####[facility] MILLWNCLIA [id number] [place] [address] [place] Urea nitrogen [Mass/Vol] 5 mg/dL Low 7-21 [facility] Comment on above: Order Comment: Gume escobedo Type: BLOOD SPECIMENOrdering Facility: [facility] Address: [address] [place] [address] Performed By: #### 2 4323-8 ####[facility] [id number] [place] [address] [place] [id number] 10-25-2024 ECG01 Normal [facility] PARVOVIRUS B19 IGG+Mon 10-25 PARVO B19 IGG, QUAL Positive Abnormal Negative [facility] Comment on above: Order Comment: Gume escobedo Type: BLOOD SPECIMENOrdering Facility: [facility] Address: [address] [place] [address] Result Comment: Parv ovirus B19 virus IgG [...] Enzyme Immunoassay. Performed By: #### P ARV ####[facility] LABCLIA [id number] [address] [place] PARVO B19 IGM, QUAL Negative Normal Negative [facility] Comment on above: Order Comment: Gume escobedo Type: BLOOD SPECIMENOrdering Facility: [facility] Address: [address] [place] [address] Result Comment: Parv ovirus B19 virus IgM [...] Enzyme Immunoassay. Performed By: #### P ARV ####[facility] LABCLIA [id number] [place] [id number] [place] [facility] URINE OB DIP B/OOrdered By: Renetta Petersen on 10-25-2024 Glucose Ql (U) Negative Neg mg/dL [facility] Protein.monoclonal (U) [Mass/Vol] Negative Neg mg/dL [facility] Urine Cultureon 10-20-2024 URC Urine Culture #1 Below infection level. Streptococcus agalactiae (B) [place] Count <1000 Mixed Gram Positive Organisms Mixed Gram Positive Organisms MIXC Mixed contaminants. Submit a new specimen if indicated. Streptococcus agalactiae (B): REACTION Ampicillin Islt STEF <=0.25 cefTRIAXone Islt STEF <=0.12 S Clindamycin.induced Susc Islt Linezolid Islt STEF <=2 S Vancomycin Islt STEF 0.5 S Normal [facility] Comment on above: Performed By: #### M 100.2200 ####[facility] [address] [place], [place], [address] CNPNon 10-19-2024 CNPN Normal [facility] URINE OB DIP B/Oon Glucose Ql (U) Negative Neg mg/dL [facility] Interpretation and review of laboratory results Normal [facility] Protein.monoclonal (U) [Mass/Vol] Negative Neg mg/dL [facility] Bedside Glucoseon 10-16-2024 FINGERSTICK GLU 106 mg/dL Normal 74-106 [facility] Comment on above: Result Comment: ELLEN ROSAURAENT OF PATIENT CARE PER NURSING PROTOCOL Performed By: #### B TS, L100.0100 #### [facility] [address] [place], [place], [address] Bilirubin Test strip Ql (U)O rdered By: Mariajose Nickerson on 10-16-2024 Bilirubin Ql (U) Negative Negative [facility] Glucose measurement at bedsi deOrdered By: Mariajose Nickerson on 10-16-2024 Glucose [Mass/Vol] 106 mg/dL 74-106 [facility] Comment on above: MANAGEMENT OF PATIEN T CARE PER NURSING PROTOCOL Ketones Test strip Ql (U)Ord ered By: Mariajose Nickerson on 10-16-2024 Ketones Ql (U) Negative Negative [facility] Microscopic analysis of urin e for red blood cells (RBC)Ordered By: Mariajose Nickerson on 10-16-2024 Microscopic analysis of urine for red blood cells (RBC) 0 SEEN /hpf 0-5 [facility] Mucus LM Ql (Urine sed)Order ed By: Mariajose Nickerson on 10-16-2024 Mucus Ql (Urine sed) 0 SEEN /hpf [facility] Nitrite Test strip Ql (U)Ord ered By: Mariajose Nickerson on 10-16-2024 Nitrite Ql (U) Negative Negative [facility] OB Triage Physician Noteon 0 10-16-2024 OB Triage Physician Note [facility] Medical Records Department [address] [place] [address] OB Triage Physician Note 10/16/24 1838 MR#: [id number] Acct: [id number] Name: MELISSA BYRNE Rep #: [id number] : 1995 29 From: Mariajose Nickerson CN PCP: Dr. Jamari Byrne MD Status:REG CLI Y Location: [place] [address] HPI - General HPI Narrative MELISSA BYRNE, [...] Nickerson; Dr. Jamari Byrne MD Signed Normal [facility] Protein Test strip Ql (U)Ord ered By: Mariajose Nickerson on 10-16-2024 Protein Ql (U) 30 mg/dl High Negative [facility] Squamous epithelial cells de tection in urine sediment by light microscopyOrdered By: Mariajose Nickerson on 10-16-2024 Epithelial cells.squamous LM Ql (Urine sed) 5-10 SEEN /hpf - [facility] Urinalysis, Completeon 10-16 EPI,SQUAMOUS 5-10 SEEN Normal 10-16 [facility] Comment on above: Order Comment: CLEAN CATCH Performed By: #### B TS, L100.0100 #### [facility] [address] [place], [address] BACTERIA 0 SEEN Normal None Seen [facility] Comment on above: Order Comment: CLEAN CATCH Performed By: #### Jo TS, L100.0100 #### [facility] [address] [place], [address] Mucus Ql (Urine sed) 0 SEEN Normal [facility] Comment on above: Order Comment: CLEAN CATCH Performed By: #### Jo TS, L100.0100 #### [facility] [address] [place], [address] RBC 0 SEEN Normal 0-5 [facility] Comment on above: Order Comment: CLEAN CATCH Performed By: #### Jo TS, L100.0100 #### [facility] [address] [place], [address] WBC 0 SEEN Normal 0-5 [facility] Comment on above: Order Comment: CLEAN CATCH Performed By: #### B , L100.0100 #### [facility] [address] [place], [place], [address] Urine clarityOrdered By: Yoli Nickerson on 10-16-2024 Clarity (U) Sl. Cloudy Clear [facility] Urine color determinationOrd ered By: Mariajose Nickerson on 10-16-2024 Color (U) Yellow Yellow [facility] Urine cultureOrdered By: Lizet Julian on 10-16-2024 Bacteria identified Cx Nom (U) Streptococcus agalactiae (B) Abnormal [facility] Bacteria identified Cx Nom (U) Positive Abnormal [facility] Urine glucose detectionOrder ed By: Mariajose Nickerson on 10-16-2024 Glucose Ql (U) 50 mg/dl High Normal [facility] Urine leukocyte esterase det ection by dipstickOrdered By: Mariajose Nickerson on 10-16-2024 Leukocyte esterase Test strip Ql (U) 25 /ul High Negative [facility] Urine pHOrdered By: Mariajose Nickerson on 10-16-2024 pH (U) 6.0 [pH] 5.0 - 8.0 [facility] Urine sediment bacteria coun t by microscopy (number/high power field)Ordered By: Mariajose Nickerson on 10-16-2024 Bacteria LM.HPF (Urine sed) [#/Area] 0 /[HPF] None Seen [facility] Urine specific gravity measu rementOrdered By: Mariajose Nickerson on 10-16-2024 Specific gravity (U) [Rel density] 1.025 1.002-1.030 [facility] Urine urobilinogen measureme ntOrdered By: Mariajose Nickerson on 10-16-2024 Urobilinogen Ql (U) 1 mg/dl High Normal [facility] White blood cell countOrdere d By: Mariajose Nickerson on 10-16-2024 White blood cell count 0 SEEN /hpf 0-5 [facility] ECHO FETALon 10-12-2024 + -----+-+ Pediatric Cardiology Echocardiogram Report + -----+-+ NAME: MELISSA BYRNE : 1995 PT ID#: [id number] Age: 29 years Sex: F STUDY DATE: 10/12/2024 10:05:33 AM ADA: 12/18/2024 GA: 30w3d Image Quality: Technically difficult and adequate. Referring Physician: Pamela Haskins Diagnosing Physician: Pamela Haskins Blending Line Attendant: Melissa Pineda RDMS, RDCS 2nd Blending Line Attendant: Diagnosis: O35.0QD9Pakqpetgb abnormality and damage, single fetus or unspecified Procedure Code: 92711, 16146, 72811 Echo, Complete (w/Doppler and color) Exam Location: [facility] (). Indications: Evaluate cardiac anatomy and [...] rate and rhythm. HR 140 bpm Mechanical [place] 84 ms Segmental Anatomy, Cardiac Position and [...] content not included)... [facility] FETALon 10-12-2024 + --- -----+-+ Pediatric Cardiology Echocardiogram Report + -----+-+ NAME: MELISSA BYRNE : 1995 PT ID#: [id number] Age: 29 years Sex: F STUDY DATE: 10/12/2024 10:05:33 AM ADA: 12/18/2024 GA: 30w3d Image Quality: Technically difficult and adequate. Referring Physician: Pamela Haskins Diagnosing Physician: Pamela Haskins Blending Line Attendant: Melissa Pineda RDMS, RDCS 2nd Blending Line Attendant: Diagnosis: O35.7DN2Vairepdif abnormality and damage, single fetus or unspecified Procedure Code: 35541, 07864, 41929 Echo, Complete (w/Doppler and color) Exam Location: [facility] (). Indications: Evaluate cardiac anatomy and [...] rate and rhythm. HR 140 bpm Mechanical [place] 84 ms Segmental Anatomy, Cardiac Position and [...] on 10/12/2024 at 12:38:17 PM Final CC [email or web address] [facility] Image : [id number] goDynamicsSISUID See Link below for Image Normal [facility] CNPNon 10-08-2024 CNPN Normal [facility] Bacteria Ur Culton Bacteria identified Cx Nom (U) ORGANISM ID: 1 10,000 -<50,000 CFU/ml Normal urogenital hima Streptococcus agalactiae (Group B streptococcus) was identified in this specimen, which is clinically relevant if the individual is . Normal [facility] Comment on above: Performed By: #### 6 30-4 ####[facility] LABIA [id number] [place] [address] [place] Prot/Creat Uron 10-04-2024 Protein/Creatinine (U) [Mass ratio] 0.10 mg/mg Normal <0.15 [facility] Comment on above: Order Comment: Speci men Type: URINE SPECIMENOrdering Facility: [facility] Address: [address] [place] [address] Result Comment: Adul t Proteinuria Categories:<0.15 mg/mg is considered normal to mildly increased0.15 - 0.50 mg/mg is considered moderately increased>0.50 mg/mg is considered severely increasedKDIGO. (2013). KDIGO 2012 Clinical Practice Guideline for the Evaluation and Management of Chronic Kidney Disease. Official Journal of the International Society of Nephrology, 3(1), 1-150. Performed By: #### 2 890-2 ####[facility] LABIA [id number] [address] STATES OF [facility] Protein/Creatinine (U) [Mass ratio]on 10-04-2024 Creatinine (U) [Mass/Vol] 67.2 mg/dL Normal 20.0-300.0 [facility] Comment on above: Order Comment: Speci men Type: URINE SPECIMENOrdering Facility: [facility] Address: [address] [place], [place] [address] Performed By: #### 2 890-2 ####[facility] LABCLIA [id number] [place] [address] [place] Protein (U) [Mass/Vol] 7 mg/dL Normal 0-20 [facility] Comment on above: Order Comment: Speci men Type: URINE SPECIMENOrdering Facility: [facility] Address: [address] [place], [place] [address] Performed By: #### 2 890-2 ####[facility] LABCLIA [id number] [place] [address] [place] CNPNon 10-02-2024 CNPN Normal [facility] CNPNon 09-27-2024 CNPN Normal [facility] OB Triage Physician Noteon 0 09-25-2024 OB Triage Physician Note [facility] Medical Records Department [address] [place] [address] OB Triage Physician Note 09/25/24 0934 MR#: [id number] Acct: [id number] Name: MELISSA BYRNE Rep #: [id number] : 1995 29 From: Leonie Waldron CNM PCP: Dr. Jamari Byrne MD Status:DEP CLI Y Location: [facility] HPI - General HPI Narrative MELISSA BYRNE, is a 29 F who presents at 27 weeks with ADA 12/23/24 with complaints of abdominal tightening. No vaginal bleeding, leakage of fluid or other symptoms. [facility] Medical History Seizures Asthma Osteoarthritis Diabetes [...] PO hydration 3) D/C home 09/25/24935 Date eLonie Samayoa Signature (if applicable): Date CC: JULIO Waldron; Dr. Jamari Byrne MD Signed Normal [facility] BACTERIAL VAGINOSIS NAATon 0 09-24-2024 Lactobacillus crispatus+gasseri+dez senii + Gardnerella vaginalis + Atopobium vaginae rRNA SUMIT+probe Ql (Vag fld) Detected Abnormal Not detected [facility] Comment on above: Order Comment: Speci men Type: SWABOrdering Facility: [facility] Address: [address] [place] [address] Performed By: #### C VTV, BVAMP ####[facility] LABCLIA [id number] [place] [address] [place] Bacteria Ur Culton Bacteria identified Cx Nom (U) ORGANISM ID: 1 10,000 -<50,000 CFU/ml Normal urogenital hima Normal [facility] Comment on above: Performed By: #### 6 30-4 ####[facility] LABCLIA [id number] [place] [address] [place] JOSUÉ/TRICHOMONAS NAATon 0 09-24-2024 C. glabrata RNA SUMIT+probe Ql (Vag fld) Not detected Normal Not detected [facility] Comment on above: Order Comment: Speci men Type: SWABOrdering Facility: [facility] Address: [address] [place] [address] Performed By: #### C VTV, BVAMP ####[facility] LABCLIA [id number] [address] [place] Josué sp DNA SUMIT+probe Ql (Vag fld) Not detected Normal Not detected [facility] Comment on above: Order Comment: Speci men Type: SWABOrdering Facility: [facility] Address: [address] [place] [address] Result Comment: The Josué species group target includes C. albicans, C. tropicalis, C. parapsilosis, and C. dubliniensis. Performed By: #### C VTV, BVAMP ####[facility] LABCLIA [id number] [place] [address] [place] T. vaginalis DNA SUMIT+probe Ql (Unsp spec) Not detected Normal Not detected [facility] Comment on above: Order Comment: Speci men Type: SWABOrdering Facility: [facility] Address: [address] [place] [address] Performed By: #### C VTV, BVAMP ####[facility] LABCLIA [id number] [place] [address] [place] CNOVon 09-24-2024 CNOV Normal [facility] CNPNon 09-24-2024 CNPN Normal [facility] UA DIP, URINE (POC)on 2024 BILIRUBIN UA (POCT) Negative Negative [facility] CLARITY UA (POCT) Clear [facility] COLOR UA (POCT) Yellow [facility] GLUCOSE UA (POCT) Negative Negative mg/dL [facility] Hemoglobin Ql (U) Negative [facility] Interpretation and review of laboratory results Abnormal [facility] KETONE UA (POCT) 15 mg/dL Abnormal Negative [facility] LEUKOCYTES UA (POCT) Moderate Abnormal Negative [facility] NITRITE UA (POCT) Negative Negative [facility] PH UA (POCT) 7 4.5 - 8.0 [facility] Protein Ql (U) Negative Negative mg/dL [facility] SPECIFIC GRAVITY UA (POCT) 1.02 1.005 - 1.030 [facility] UROBILINOGEN UA (POCT) 1 Normal E.U./dL [facility] Location:[facility], [address] [facility], [place], [address] [facility] POINT OF CARE [facility] CNOVon 09-20-2024 CNOV Normal [facility] HEMOGLOBIN A1C (POC)on 09-20 HbA1c (Bld) [Mass fraction] 5.2 % 4.3 - 5.6 % [facility] Comment on above: Location:[facility], [address], [place], [place], [facility] Point of care (POC) Hemoglobin A1c [...] specific diabetes management situations: The POC device ton container shipper provides a normal range of 4.2% to 6.5% for the HGBA1C POC test. However, the [place] Diabetes Association guidelines indicate that patients with [...] anemia) that alter red blood cell lifespan. [facility] CNPNon 09-11-2024 CNPN Normal [facility] CBC W Auto Differential pane l (Bld)on 09-08-2024 Basophils (Bld) [#/Vol] 0.03 10*3/uL Normal <0.11 [facility] Comment on above: Order Comment: Speci men Type: BLOOD SPECIMENOrdering Facility: [facility] Address: [address] [place] [address] Performed By: #### 5 7021-8 ####[facility] [id number] [place] [address] [place] Basophils/100 WBC (Bld) 0.3 % Normal [facility] Comment on above: Order Comment: Speci men Type: BLOOD SPECIMENOrdering Facility: [facility] Address: [address] [place] [address] Performed By: #### 5 7021-8 ####[facility] [id number] [place] [address] [place] Differential cell count method Nom (Bld) Auto Normal [facility] Comment on above: Order Comment: Speci men Type: BLOOD SPECIMENOrdering Facility: [facility] Address: [address] [place] [address] Performed By: #### 5 7021-8 ####[facility] [id number] [place] [address] [place] Eosinophils (Bld) [#/Vol] 0.15 10*3/uL Normal <0.46 [facility] Comment on above: Order Comment: Speci men Type: BLOOD SPECIMENOrdering Facility: [facility] Address: [address] [place] [address] Performed By: #### 5 7021-8 ####[facility] [id number] [place] [address] [place] Eosinophils/100 WBC (Bld) 1.7 % Normal [facility] Comment on above: Order Comment: Speci men Type: BLOOD SPECIMENOrdering Facility: [facility] Address: [address] [place] [address] Performed By: #### 5 7021-8 ####[facility] [id number] [place] [address] [place] Erythrocyte distribution width (RBC) [Ratio] 13.6 % Normal 11.5-15.0 [facility] Comment on above: Order Comment: Speci men Type: BLOOD SPECIMENOrdering Facility: [facility] Address: [address] [place] [address] Performed By: #### 5 7021-8 ####[facility] [id number] [place] [address] [place] Hematocrit (Bld) [Volume fraction] 35.0 % Low 36.0-46.0 [facility] Comment on above: Order Comment: Speci men Type: BLOOD SPECIMENOrdering Facility: [facility] Address: [address] [place] [address] Performed By: #### 5 7021-8 ####[facility]ARDNCLIA [id number] [place] [address] [place] Hemoglobin (Bld) [Mass/Vol] 12.2 g/dL Normal 11.5-15.5 [facility] Comment on above: Order Comment: Speci men Type: BLOOD SPECIMENOrdering Facility: [facility] Address: [address] [place] [address] Performed By: #### 5 7021-8 ####[facility]ENTERMATHEUSA [id number] [place] [address] [place] Immature granulocytes (Bld) [#/Vol] 0.06 10*3/uL Normal <0.10 [facility] Comment on above: Order Comment: Speci men Type: BLOOD SPECIMENOrdering Facility: [facility] Address: [address] [place] [address] Performed By: #### 5 7021-8 ####[facility] [id number] [place] [address] [place] Immature granulocytes/100 WBC (Bld) 0.7 % Normal [facility] Comment on above: Order Comment: Speci men Type: BLOOD SPECIMENOrdering Facility: [facility] Address: [address] [place] [address] Performed By: #### 5 7021-8 ####[facility]ENTERMATHEUSA [id number] [place] [address] [place] Lymphocytes (Bld) [#/Vol] 2.07 10*3/uL Normal 1.00-4.00 [facility] Comment on above: Order Comment: Speci men Type: BLOOD SPECIMENOrdering Facility: [facility] Address: [address] [place] [address] Performed By: #### 5 7021-8 ####[facility]ARDNCLIA [id number] [place] [address] [place] Lymphocytes/100 WBC (Bld) 23.7 % Normal [facility] Comment on above: Order Comment: Speci men Type: BLOOD SPECIMENOrdering Facility: [facility] Address: [address] [place] [address] Performed By: #### 5 7021-8 ####[facility] [facility] [id number] [place] [address] [place] MCH (RBC) [Entitic mass] 30.5 pg Normal 26.0-34.0 [facility] Comment on above: Order Comment: Speci men Type: BLOOD SPECIMENOrdering Facility: [facility] Address: [address] [place] [address] Performed By: #### 5 7021-8 ####[facility] [id number] [place] [address] [place] MCHC (RBC) [Mass/Vol] 34.9 g/dL Normal 30.5-36.0 [facility] Comment on above: Order Comment: Speci men Type: BLOOD SPECIMENOrdering Facility: [facility] Address: [address] [place] [address] Performed By: #### 5 7021-8 ####[facility] [id number] [place] [address] [place] MCV (RBC) [Entitic vol] 87.5 fL Normal 80.0-100.0 [facility] Comment on above: Order Comment: Speci men Type: BLOOD SPECIMENOrdering Facility: [facility] Address: [address] [place] [address] Performed By: #### 5 7021-8 ####[facility] [id number] [place] [address] [place] Monocytes (Bld) [#/Vol] 0.37 10*3/uL Normal <0.87 [facility] Comment on above: Order Comment: Speci men Type: BLOOD SPECIMENOrdering Facility: [facility] Address: [address] [place] [address] Performed By: #### 5 7021-8 ####[facility] WENDYWNCLIA [id number] [place] [address] [place] Monocytes/100 WBC (Bld) 4.2 % Normal [facility] Comment on above: Order Comment: Speci men Type: BLOOD SPECIMENOrdering Facility: [facility] Address: [address] [place] [address] Performed By: #### 5 7021-8 ####[facility]ARDNCL[facility] [id number] [place] [address] [place] Neutrophils (Bld) [#/Vol] 6.04 10*3/uL Normal 1.45-7.50 [facility] Comment on above: Order Comment: Speci men Type: BLOOD SPECIMENOrdering Facility: [facility] Address: [address] [place] [address] Performed By: #### 5 7021-8 ####[facility]NCL[facility] [id number] [place] [address] [place] Neutrophils/100 WBC (Bld) 69.4 % Normal [facility] Comment on above: Order Comment: Speci men Type: BLOOD SPECIMENOrdering Facility: [facility] Address: [address] [place] [address] Performed By: #### 5 7021-8 ####[facility] VICKYWNCLIA [id number] [place] [address] [place] Nucleated RBC (Bld) [#/Vol] 10*3/uL Normal <0.01 [facility] Comment on above: Order Comment: Speci men Type: BLOOD SPECIMENOrdering Facility: [facility] Address: [address] [place] [address] Performed By: #### 5 7021-8 ####[facility] [id number] [place] [address] [place] Nucleated RBC/100 WBC (Bld) [Ratio] 0.0 /100 WBC Normal [facility] Comment on above: Order Comment: Speci men Type: BLOOD SPECIMENOrdering Facility: [facility] Address: [address] [place] [address] Performed By: #### 5 7021-8 ####[facility] VICKYMCHENRYVERNON [id number] [place] [address] [place] Platelet mean volume (Bld) [Entitic vol] 9.5 fL Normal 9.0-12.7 [facility] Comment on above: Order Comment: Speci men Type: BLOOD SPECIMENOrdering Facility: [facility] Address: [address] [place] [address] Performed By: #### 5 7021-8 ####[facility]ARDKLAUSRaymond [id number] [place] [address] [place] Platelets (Bld) [#/Vol] 282 10*3/uL Normal 150-400 [facility] Comment on above: Order Comment: Speci men Type: BLOOD SPECIMENOrdering Facility: [facility] Address: [address] [place] [address] Performed By: #### 5 7021-8 ####[facility] VICKYMCHENRYVERNON [id number] [place] [address] [place] RBC (Bld) [#/Vol] 4.00 10*6/uL Normal 3.90-5.20 [facility] Comment on above: Order Comment: Speci men Type: BLOOD SPECIMENOrdering Facility: [facility] Address: [address] [place] [address] Performed By: #### 5 7021-8 ####[facility]ARDKLAUSLIA [id number] [place] [address] [place] WBC (Bld) [#/Vol] 8.72 10*3/uL Normal 3.70-11.00 [facility] Comment on above: Order Comment: Speci men Type: BLOOD SPECIMENOrdering Facility: [facility] Address: [address] [place] [address] Performed By: #### 5 7021-8 ####[facility] [id number] [place] [address] [place] Reagin and Treponema pallidu m IgG and IgM [Interp]on 09-08-2024 T. pallidum IgG+IgM IA Ql (S) Non-Reactive Nonreactive [facility] T. pallidum IgG+IgM IA Ql (S) Non-Reactive Normal Nonreactive [facility] Comment on above: Order Comment: Speci [facility] Type: BLOOD SPECIMENOrdering Facility: [facility] Address: [address] [place] [address] Performed By: #### 7 3752-8 ####[facility] LABIA [id number] [place] [address] [place] Reagin+T pallidum IgG+IgM Se rPl-Impon 09-08-2024 Reagin and Treponema pallidum IgG and IgM [Interp] Cannot exclude recent Treponemal infection if specimen collected within 7-10 days after appearance of suspect lesions or 2-3 weeks after an exposure. Clinical correlation is required. Normal [facility] Comment on above: Order Comment: Speci men Type: BLOOD SPECIMENOrdering Facility: [facility] Address: [address] [place] [address] Performed By: #### 7 3752-8 ####[facility] LABIA [id number] [place] [id number] [place] SYPHILIS TREPONEMAL W/REFLEX on 09-08-2024 Reagin and Treponema pallidum IgG and IgM [Interp] Cannot exclude recent Treponemal infection if specimen collected within 7-10 days after appearance of suspect lesions or 2-3 weeks after an exposure. Clinical correlation is required. [facility] C[facility]N Normal [facility] Examination level ultrasound on 09-03-2024 [facility] Examination level ultrasound on 09-02-2024 Radiology Study observation (narrative) [facility] C[facility]N Normal [facility] CNPNon 08-24-2024 CNPN Normal [facility] FETALon 08-24-2024 + --- -----+-+ Pediatric Cardiology Echocardiogram Report + -----+-+ NAME: MELISSA BYRNE : 1995 PT ID#: [id number] Age: 29 years Sex: F STUDY DATE: 08/24/2024 12:29:33 PM ADA: 12/18/2024 GA: 23w3d Image Quality: Technically difficult and inadequate. Referring Physician: Pooja Latham Diagnosing Physician: Pamela Haskins Blending Line Attendant: Idalmis Hough [facility] 2nd Blending Line Attendant: Diagnosis: [id number] abnormality and damage, single fetus or unspecified Procedure Code: 51029, 55433, 48420 Echo, Complete (w/Doppler and color) Exam Location: [facility] (). Indications: Evaluate cardiac anatomy and [...] rate and rhythm. HR 149 bpm Mechanical [place] 110 ms Segmental Anatomy, Cardiac Position and [...] 08/24/2024 at 1:34:49 PM Final (Updated) CC [email or web address] [facility] Image : [id number] goDynamicsSISUID See Link below for Image Normal [facility] 08-20-2024 [facility] Normal [facility] 08-18-2024 [facility] Normal [facility] 08-10-2024 [facility] Normal [facility] Examination level ultrasound on 08-10-2024 Indication [...] 13 oz EFW by: Hadlock (HC-AC-FL) Extended Chain Mender 7.6 mm CM 5.7 mm 61% Nicolaides [...] normal LVOT view: normal 3-vessel view: normal 1-nzpxti-dyrdnvl view: normal Heart / Thorax Situs: situs [...] Read By: Pooja Latham M.D. MATERNAL MEDICINE [facility] Radiology Study observation (narrative) [facility] URINE OB DIP B/Oon Glucose Ql (U) Negative Neg mg/dL [facility] Interpretation and review of laboratory results Normal [facility] Protein.monoclonal (U) [Mass/Vol] Negative Neg mg/dL [facility] CNPNon 08-08-2024 CNPN Normal [facility] CNPNon 08-01-2024 CNPN Normal [facility] CNOVon 07-26-2024 CNOV Normal [facility] CNOVon 07-23-2024 CNOV Normal [facility] CNPNon 07-20-2024 CNPN Normal [facility] CNPNon 07-14-2024 CNPN Normal [facility] Examination level ultrasound on 07-13-2024 Indication [...] 6 oz EFW by: Hadlock (HC-AC-FL) Extended Chain Mender 4.2 mm Extremities / Bony Struc FL / HC 0.17 44% Hadlock Other Structures FHR 152 bpm Anatomy Cranium: normal Lateral ventricles: normal Choroid plexus: normal Midline falx: normal Cerebellum: normal Cisterna magna: normal Lips: normal Profile: normal 4-chamber view: normal RVOT view: normal LVOT view: normal 3-vessel view: normal 4-xngdoi-mdxtnxc view: normal Heart / Thorax Diaphragm: normal [...] Read By: Pooja Latham M.D. MATERNAL MEDICINE [facility] Radiology Study observation (narrative) [facility] URINE OB DIP B/OOrdered By: Rebeca Vazquez on 07-13-2024 Glucose Ql (U) 100 mg/dL Neg [facility] Interpretation and review of laboratory results Normal [facility] Protein.monoclonal (U) [Mass/Vol] Negative Neg mg/dL [facility] CNPNon 07-04-2024 CNPN Normal [facility] CNPNon 07-02-2024 CNPN Normal [facility] Influenza virus A and B and SARS-CoV-2 (COVID-19) identified SUMIT+probe Nom (Resp)on 07-01-2024 FLUAV RNA SUMIT+probe Ql (Resp) Detected Abnormal Not Detected [facility] FLUBV RNA SUMIT+probe Ql (Resp) Not detected Not Detected [facility] Interpretation and review of laboratory results Abnormal [facility] SARS-CoV-2 (COVID-19) RNA SUMIT+probe Ql (Resp) Not detected Not Detected [facility] This assay is an FDA-cleared, in vitro diagnostic nucleic acid amplification test for the qualitative detection and differentiation of SARS CoV-2/ Influenza A/B from nasopharyngeal specimens collected from individuals with signs and symptoms of respiratory tract infections, and has been validated for use at [facility]. Negative results do not preclude COVID-19/ Influenza A/B infections and should not be used as the sole basis for diagnosis, treatment, or other management decisions. Testing for SARS CoV-2 is recommended only for patients who meet current clinical and/or epidemiological criteria defined by federal, state, or local public health directives. [facility] FLUAV RNA SUMIT+probe Ql (Resp) Detected Abnormal Not Detected [facility] Comment on above: Order Comment: OVER is reported when the result is greater than the clinically reportable range. Performed By: #### 5 8077-9 #### JACQUELYN LOPEZ ([id number]) [facility] ([facility]) [address] [place] [address] FLUBV RNA SUMIT+probe Ql (Resp) Not detected Normal Not Detected [facility] Comment on above: Order Comment: OVER is reported when the result is greater than the clinically reportable range. Performed By: #### 5 8077-9 #### JACQUELYN LOPEZ ([id number]) [facility] ([facility]) [address] [place] [address] SARS-CoV-2 (COVID-19) RNA SUMIT+probe Ql (Resp) Not detected Normal Not Detected [facility] Comment on above: Order Comment: OVER is reported when the result is greater than the clinically reportable range. Performed By: #### 5 8077-9 #### JACQUELYN LOPEZ ([id number]) [facility] ([facility]) [address] [place] [address] XR CHEST 2 VIEWSon XR CHEST 2 VIEWS STUDY: Chest Radiographs; 07/01/2024 at 8:35 PM. INDICATION: Fever and cough.. COMPARISON: XR chest 10/23/2020. ACCESSION NUMBER(S): [id number] ORDERING CLINICIAN: SIXTO MYERS TECHNIQUE: Frontal and lateral chest. FINDINGS: CARDIOMEDIASTINAL SILHOUETTE: Cardiomediastinal silhouette is normal in size and configuration. LUNGS: Lungs are clear. ABDOMEN: No remarkable upper abdominal findings. BONES: No acute osseous changes. IMPRESSION: No focal pulmonary pathology. Signed by Leo Paris M.D. Normal [facility] XR Chest 2 Viewson No focal pulmonary pathology. Signed by Leo Paris M.D. TELERADIOLOGY STUDY: Chest Radiographs; 07/01/2024 at 8:35 PM. INDICATION: Fever and cough.. COMPARISON: XR chest 10/23/2020. ACCESSION NUMBER(S): [id number] ORDERING CLINICIAN: SIXTO MYERS TECHNIQUE: Frontal and lateral chest. FINDINGS: CARDIOMEDIASTINAL SILHOUETTE: Cardiomediastinal silhouette is normal in size and configuration. LUNGS: Lungs are clear. ABDOMEN: No remarkable upper abdominal findings. BONES: No acute osseous changes. TELERADIOLOGY Leo Paris MD - 07/01/2024 STUDY: Chest Radiographs; 07/01/2024 at 8:35 PM. INDICATION: Fever and cough.. COMPARISON: XR chest 10/23/2020. ACCESSION NUMBER(S): [id number] ORDERING CLINICIAN: SIXTO MYERS TECHNIQUE: Frontal and lateral chest. FINDINGS: CARDIOMEDIASTINAL SILHOUETTE: Cardiomediastinal silhouette is normal in size and configuration. LUNGS: Lungs are clear. ABDOMEN: No remarkable upper abdominal findings. BONES: No acute osseous changes. IMPRESSION: No focal pulmonary pathology. Signed by Leo Paris M.D. [facility] Work Phone: Radiology Study observation (narrative) [facility] Work Phone: XR Chest 2 ViewsOrdered By: Leo Paris on 07-01-2024 [facility] Work Phone: CNPNon 06-28-2024 CNPN Normal [facility] CNPNon 06-25-2024 CNPN Normal [facility] CNPNon 06-22-2024 CNPN Normal [facility] CNPNon 06-19-2024 CNPN Normal [facility] nuchal translucency me asured by USon 06-15-2024 Indication First trimester anatomic survey Maternal obesity, BMI >30, Diabetes mellitus Impression The patient is referred for a first trimester anatomy scan including nuchal translucency measurement as clinically indicated. - Single, live, intrauterine . - [place] rump length measurement is consistent with the [...] view: suboptimal 4-chamber view with color: suboptimal 5-ximtlv-ydudwfn view: suboptimal Abdominal cord insertion: normal Stomach: [...] Idania Snyder RDMS, RVT Read By: Pooja Ltaham M.D. MATERNAL MEDICINE [facility] Radiology Study observation (narrative) [facility] [id number] PLUSon 06-15-2024 Cell-free DNA./Cell-free DNA.total Dosage of chromosome-specific cfDNA (cfDNA) [Molar fraction] 15% Normal [facility] Comment on above: Order Comment: Speci men Type: BLOOD SPECIMENOrdering Facility: [facility] Address: [address] [place] [address] Performed By: #### M AT21 ####[facility] LABCLIA [id number] [place] [address] Chr 13+18+21+X+Y aneuploidy Dosage of chromosome-specific cfDNA Ql (cfDNA) Negative Normal [facility] Comment on above: Order Comment: Speci men Type: BLOOD SPECIMENOrdering Facility: [facility] Address: [address] [place] [address] Performed By: #### M AT21 ####[employer] LABCLIA [id number] [place] [address] Chr 21 trisomy Dosage of chromosome-specific cfDNA Ql (cfDNA) Negative Normal [facility] Comment on above: Order Comment: Speci men Type: BLOOD SPECIMENOrdering Facility: [facility] Address: [address] [place] [address] Performed By: #### M AT21 ####[employer] LABCLIA [id number] [place] [address] Chr X and Y aneuploidy risk Sequencing Ql (cfDNA) [Interp] Not detected Normal [facility] Comment on above: Order Comment: Speci men Type: BLOOD SPECIMENOrdering Facility: [facility] Address: [address] [place] [address] Result Comment: Not DetectedNot Detected Performed By: #### M AT21 ####[facility] LABCLIA [id number] [place] [address] Citation Jorge (Reference lab test) Comment Normal [facility] Comment on above: Order Comment: Speci men Type: BLOOD SPECIMENOrdering Facility: [facility] Address: [address] [place] [address] Result Comment: 1. P gabriela ROBINS, et al. Jaqueline Med. 2012;14(3):296-305.2. Shellie LIAO et al. Prenat Diag. 2013;33(6):591-597.3. Paul C, et al. Clin Chem. 2015 Apr;61(4):608-616.4. Shira ROBINS, et al. Jaqueline Med. 2011;13(11):913-920.5. ACOG/SMFM Practice Bulletin No. 226, Mar 2020. Performed By: #### M AT21 ####[facility] LABCLIA [id number] [place] [id number] Gestational age Estimated from conception date [place] Normal [facility] Comment on above: Order Comment: Speci men Type: BLOOD SPECIMENOrdering Facility: [facility] Address: [address] [place] [address] Performed By: #### M AT21 ####[facility] LABCLIA [id number] [place] [address] GESTATIONALAGE AGE > OR = 9W Yes Normal [facility] Comment on above: Order Comment: Speci men Type: BLOOD SPECIMENOrdering Facility: [facility] Address: [address] [place] [address] Performed By: #### M AT21 ####[facility] LABCLIA [id number] [place] [address] Laboratory comment Jorge (Report) Comment Normal [facility] Comment on above: Order Comment: Speci men Type: BLOOD SPECIMENOrdering Facility: [facility] Address: [address] [place] [address] Result Comment: The MaterniT(R) 21 PLUS laboratory-developed test (LDT)analyzes circulating cell-free DNA from a maternal bloodsample. This test is used for screening purposes and notdiagnostic. Clinical correlation is recommended. Validationdata on twin pregnancies is limited and the ability of thistest to detect aneuploidy in higher multiple gestations hasnot yet been validated. Performed By: #### M AT21 ####[employer] LABCLIA [id number] [place] [id number] campus security director name Nom (Provider) Comment Normal [facility] Comment on above: Order Comment: Speci men Type: BLOOD SPECIMENOrdering Facility: [facility] Address: [address] [place] [address] Result Comment: This specimen showed an expected representation ofchromosome 21, 18 and 13 material. Clinical correlation issuggested.CommentValdemar Kearns MD, PhD, Director, Devario Performed By: #### M AT21 ####[employer] LABCLIA [id number] [place] [address] LIMITATIONS OF THE TEST Comment Normal [facility] Comment on above: Order Comment: Speci men Type: BLOOD SPECIMENOrdering Facility: [facility] Address: [address] [place] [address] Result Comment: Lynne harmon the results of [...] and Fragmin(R)). Performed By: #### M AT21 ####[employer] LABCLIA [id number] [place] [address] Monosomy X risk Dosage of chromosome-specific cfDNA Ql (Plasma cell-free+WBC DNA) [Interp] Not detected Normal [facility] Comment on above: Order Comment: Speci men Type: BLOOD SPECIMENOrdering Facility: [facility] Address: [address] [address] Performed By: #### M AT21 ####[employer] LABCLIA [id number] [place] [address] NEGATIVE PREDICTIVE VALUE Note Normal [facility] Comment on above: Order Comment: Speci men Type: BLOOD SPECIMENOrdering Facility: [facility] Address: [address] [place] [address] Result Comment: The Negative Predictive Value (NPV) for trisomy 21, 18, and13 is greater than 99%. The NPV for SCA and ESS cannot becalculated as SCA and ESS are only reported when anabnormality is detected. Performed By: #### M AT21 ####[employer] LABCLIA [id number] [place] [address] NOTE Comment Normal [facility] Comment on above: Order Comment: Speci men Type: BLOOD SPECIMENOrdering Facility: [facility] Address: [address] [place] [address] Result Comment: See NotesGap Designs. is a subsidiary of [employer], using the brand [employer]. This test wasdeveloped and its performance characteristics determined byLitepoint. It has not been cleared or approved by the Foodand Drug Administration. This laboratory is certified underthe Clinical Laboratory Improvement Amendments (CLIA) asqualified to perform high complexity clinical laboratorytesting and accredited by the College of AmericanPathologists (CAP).If there is future clinical need for adding MaterniT GENOMEtesting, this specimen will be available until term.[facility] samples will not be retained beyond 60 days.[facility] patients will have to send a new sample forre-sequencing ([facility] Test Code: 961397). Performed By: #### M AT21 ####[employer] LABCLIA [id number] [place] [address] PERFORMANCE CHARACTERISTICS Note Normal [facility] Comment on above: Order Comment: Speci men Type: BLOOD SPECIMENOrdering Facility: [facility] Address: [address] [place] [id number] Result Comment: ! Sex ! Accuracy: 99.4% !! !! Region (associated syndrome) ! Est. Sens# ! Est. Spec !! !! Trisomy 21 (Down Syndrome) ! 99.1% ! 99.9% !! !! Trisomy 18 (Pham Syndrome) ! >99.9% ! 99.6% !! !! Trisomy 13 ([place]atau Syndrome) ! 91.7% ! 99.7% !! !! Sex Chromosome Aneuploidies## ! 96.2% ! 99.7% !! !* As reported in [facility] database nstd37[https://www.ncbi.nlm.nih.gov/dbvar/studies/nstd37/ ]# Estimated Sensitivity. Sensitivity estimated across theobserved size distribution of each syndrome [per formerly [facility] Hospital[facility] nstd37] and across the range of fractionsobserved in routine clinical NIPT. Actual sensitivity canalso be influenced by other factors such as the size of theevent, total sequence counts, amplification bias, orsequence bias.## [place] gestation only. Performed By: #### M AT21 ####[employer] LABCLIA [id number] [place] [address] POSITIVE PREDICTIVE VALUE N/A Normal [facility] Comment on above: Order Comment: Speci men Type: BLOOD SPECIMENOrdering Facility: [facility] Address: [address] [place] [address] Performed By: #### M AT21 ####[facility] LABCLIA [id number] [place] [id number] Reference Lab Test Method Comment Normal [facility] Comment on above: Order Comment: Speci men Type: BLOOD SPECIMENOrdering Facility: [facility] Address: [address] [place] [address] Result Comment: See NotesCirculating cell-free DNA was [...] 8q, 5p, 4p, 1p) and trisomy of bxetngudmpm56 and 22. Performed By: #### M AT21 ####[facility] LABCLIA [id number] [place] [address] Sex Dosage of chromosome-specific cfDNA Nom (cfDNA) Comment Normal [facility] Comment on above: Order Comment: Speci men Type: BLOOD SPECIMENOrdering Facility: [facility] Address: [address] [place] [address] Result Comment: Cons istent with Female Performed By: #### M AT21 ####[facility] LABCLIA [id number] [place] [address] Test performance information Jorge (Unsp spec) Comment Normal [facility] Comment on above: Order Comment: Gume escobedo Type: BLOOD SPECIMENOrdering Facility: [facility] Address: [address] [place] [address] Result Comment: The performance characteristics of the MaterniT(R) 21 PLUSlaboratory-developed test (LDT) have been determined in aclinical validation study with women at increasedrisk for chromosomal aneuploidy.[1-4] Performed By: #### M AT21 ####[employer] LABCLIA [id number] [place] [address] Trisomy 13 risk Dosage of chromosome-specific cfDNA Ql (cfDNA) [Interp] Negative Normal [facility] Comment on above: Order Comment: Gume escobedo Type: BLOOD SPECIMENOrdering Facility: [facility] Address: [address] [place] [address] Performed By: #### M AT21 ####[employer] LABCLIA [id number] [place] [address] Trisomy 18 risk Dosage of chromosome-specific cfDNA Ql (Plasma cell-free+WBC DNA) [Interp] Negative Normal [facility] Comment on above: Order Comment: Gume escobedo Type: BLOOD SPECIMENOrdering Facility: [facility] Address: [address] [place] [address] Performed By: #### M AT21 ####[employer] LABCLIA [id number] [place] [address] CNPNon 06-11-2024 CNPN Normal [facility] CNOVon 06-07-2024 CNOV Normal [facility] HEMOGLOBIN A1C (POC)on 06-07 HbA1c (Bld) [Mass fraction] 7.9 % Abnormal 4.3 - 5.6 % [facility] Comment on above: Location:[facility], [address] [place] [address], [facility] Point of care (POC) Hemoglobin A1c [...] specific diabetes management situations: The POC device ton container shipper provides a normal range of 4.2% to 6.5% for the HGBA1C POC test. However, the [place] [employer] guidelines indicate that patients with [...] Interpretation and review of laboratory results Abnormal [facility] CNPNon 06-05-2024 CNPN Normal [facility] CNPNon 06-01-2024 CNPN Normal [facility] URINE OB DIP B/Oon Glucose Ql (U) Negative Neg mg/dL [facility] Interpretation and review of laboratory results Normal [facility] Protein.monoclonal (U) [Mass/Vol] Negative Neg mg/dL [facility] CBC W Auto Differential pane l (Bld)on 05-21-2024 Basophils (Bld) [#/Vol] 0.05 10*3/uL [facility] Basophils/100 WBC (Bld) 0.6 % 0.0 - 2.0 % [facility] Eosinophils (Bld) [#/Vol] 0.18 10*3/uL [facility] Eosinophils/100 WBC (Bld) 2.3 % 0.0 - 6.0 % [facility] Erythrocyte distribution width (RBC) [Ratio] 12.1 % 11.5 - 14.5 % [facility] Hematocrit (Bld) [Volume fraction] 41.7 % 36.0 - 46.0 % [facility] Hemoglobin (Bld) [Mass/Vol] 14.3 g/dL 12.0 - 16.0 g/dL [facility] Immature granulocytes (Bld) [#/Vol] 0.01 10*3/uL [facility] Immature granulocytes/100 WBC (Bld) 0.1 % 0.0 - 0.9 % [facility] Comment on above: Immature Granulocyte Count (IG) includes promyelocytes, myelocytes and metamyelocytes but does not include bands. Percent differential counts (%) should be interpreted in the context of the absolute cell counts (cells/UL). Lymphocytes (Bld) [#/Vol] 3.2 10*3/uL [facility] Lymphocytes/100 WBC (Bld) 41.3 % 13.0 - 44.0 % [facility] MCH (RBC) [Entitic mass] 28.9 pg 26.0 - 34.0 pg [facility] MCHC (RBC) [Mass/Vol] 34.3 g/dL 32.0 - 36.0 g/dL [facility] MCV (RBC) [Entitic vol] 84 fL 80 - 100 fL [facility] Monocytes (Bld) [#/Vol] 0.49 10*3/uL [facility] Monocytes/100 WBC (Bld) 6.3 % 2.0 - 10.0 % [facility] Neutrophils (Bld) [#/Vol] 3.81 10*3/uL [facility] Comment on above: Percent differential counts (%) should be interpreted in the context of the absolute cell counts (cells/uL). Neutrophils/100 WBC (Bld) 49.4 % 40.0 - 80.0 % [facility] Nucleated RBC/100 WBC (Bld) [Ratio] 0 % [facility] Platelets (Bld) [#/Vol] 299 10*3/uL [facility] RBC (Bld) [#/Vol] 4.94 10*6/uL [facility] WBC (Bld) [#/Vol] 7.7 10*3/uL [facility] Basophils (Bld) [#/Vol] 0.05 x10*3/uL Normal 0.00-0.10 [facility] Comment on above: Performed By: #### 5 7021-8 #### JACQUELYN LOPEZ ([id number]) [facility] ([facility]) [address] [place] [address] 63873 Basophils/100 WBC (Bld) 0.6 % Normal 0.0-2.0 [facility] Comment on above: Performed By: #### 5 7021-8 #### JACQUELYN LOPEZ ([id number]) [facility] ([facility]) [address] [place] [address] 62747 Eosinophils (Bld) [#/Vol] 0.18 x10*3/uL Normal 0.00-0.70 [facility] Comment on above: Performed By: #### 5 7021-8 #### JACQUELYN LOPEZ ([id number]) [facility] ([facility]) [address] [place] [address] 11024 Eosinophils/100 WBC (Bld) 2.3 % Normal 0.0-6.0 [facility] Comment on above: Performed By: #### 5 7021-8 #### JACQUELYN LOPEZ ([id number]) [facility] ([facility]) [address] [place] [address] 54888 Erythrocyte distribution width (RBC) [Ratio] 12.1 % Normal 11.5-14.5 [facility] Comment on above: Performed By: #### 5 7021-8 #### JACQUELYN LOPEZ ([id number]) [facility] ([facility]) [address] [place] [address] 20882 Hematocrit (Bld) [Volume fraction] 41.7 % Normal 36.0-46.0 [facility] Comment on above: Performed By: #### 5 7021-8 #### JACQUELYN LOPEZ ([id number]) [facility] ([facility]) [address] [place] [address] 43653 Hemoglobin (Bld) [Mass/Vol] 14.3 g/dL Normal 12.0-16.0 [facility] Comment on above: Performed By: #### 5 7021-8 #### JACQUELYN LOPEZ ([id number]) [facility] ([facility]) [address] [place] [address] 25643 Immature granulocytes (Bld) [#/Vol] 0.01 x10*3/uL Normal 0.00-0.70 [facility] Comment on above: Performed By: #### 5 7021-8 #### JACQUELYN LOPEZ ([id number]) [facility] ([facility]) [address] [place] [address] 51927 Immature granulocytes/100 WBC (Bld) 0.1 % Normal 0.0-0.9 [facility] Comment on above: Result Comment: Kaela ture Granulocyte Count (IG) includes promyelocytes, myelocytes and metamyelocytes but does not include bands. Percent differential counts (%) should be interpreted in the context of the absolute cell counts (cells/UL). Performed By: #### 5 7021-8 #### JACQUELYN LOPEZ ([id number]) [facility] ([facility]) [address] [place] [address] Lymphocytes (Bld) [#/Vol] 3.20 x10*3/uL Normal 1.20-4.80 [facility] Comment on above: Performed By: #### 5 7021-8 #### JACQUELYN LOPEZ ([id number]) [facility] ([facility]) [address] [place] [address] 37081 Lymphocytes/100 WBC (Bld) 41.3 % Normal 13.0-44.0 [facility] Comment on above: Performed By: #### 5 7021-8 #### JACQUELYN LOPEZ ([id number]) [facility] ([facility]) [address] [place] [address] 03247 MCH (RBC) [Entitic mass] 28.9 pg Normal 26.0-34.0 [facility] Comment on above: Performed By: #### 5 7021-8 #### JACQUELYN LOPEZ ([id number]) [facility] ([facility]) [address] [place] [address] 89635 MCHC (RBC) [Mass/Vol] 34.3 g/dL Normal 32.0-36.0 [facility] Comment on above: Performed By: #### 5 7021-8 #### JACQUELYN LOPEZ ([id number]) [facility] ([facility]) [address] [place] [address] MCV (RBC) [Entitic vol] 84 fL Normal 80-100 [facility] Comment on above: Performed By: #### 5 7021-8 #### JACQUELYN LOPEZ ([id number]) [facility] ([facility]) [address] [place] [address] 23360 Monocytes (Bld) [#/Vol] 0.49 x10*3/uL Normal 0.10-1.00 [facility] Comment on above: Performed By: #### 5 7021-8 #### JACQUELYN LOPEZ ([id number]) [facility] ([facility]) [address] [place] [address] 85000 Monocytes/100 WBC (Bld) 6.3 % Normal 2.0-10.0 [facility] Comment on above: Performed By: #### 5 7021-8 #### JACQUELYN LOPEZ ([id number]) [facility] ([facility]) [address] [place] [address] 34844 Neutrophils (Bld) [#/Vol] 3.81 x10*3/uL Normal 1.20-7.70 [facility] Comment on above: Result Comment: Perc ent differential counts (%) should be interpreted in the context of the absolute cell counts (cells/uL). Performed By: #### 5 7021-8 #### JACQUELYN LOPEZ ([id number]) [facility] ([facility]) [address] [place] [address] 38560 Neutrophils/100 WBC (Bld) 49.4 % Normal 40.0-80.0 [facility] Comment on above: Performed By: #### 5 7021-8 #### JACQUELYN LOPEZ ([id number]) [facility] ([facility]) [address] [place] [address] 58691 Nucleated RBC/100 WBC (Bld) [Ratio] 0.0 /100 WBCs Normal 0.0-0.0 [facility] Comment on above: Performed By: #### 5 7021-8 #### JACQUELYN LOPEZ ([id number]) [facility] ([facility]) [address] [place] [address] 76975 Platelets (Bld) [#/Vol] 299 x10*3/uL Normal 150-450 [facility] Comment on above: Performed By: #### 5 7021-8 #### JACQUELYN LOPEZ ([id number]) [facility] ([facility]) [address] [place] [address] 79163 RBC (Bld) [#/Vol] 4.94 x10*6/uL Normal 4.00-5.20 [facility] Comment on above: Performed By: #### 5 7021-8 #### JACQUELYN LOPEZ ([id number]) [facility] ([facility]) [address] [place] [address] 48318 WBC (Bld) [#/Vol] 7.7 x10*3/uL Normal 4.4-11.3 [facility] Comment on above: Performed By: #### 5 7021-8 #### JACQUELYN LOPEZ ([id number]) [facility] ([facility]) [address] [place] [address] Choriogonadotropin.beta subu niton 05-21-2024 [place] [address] m[IU]/mL High <5 U [facility] Comment on above: Order Comment: OVER is [...] By: #### 5 8077-9 #### JACQUELYN LOPEZ ([id number]) [facility] ([facility]) [address] [place], [place] [address] Comprehensive metabolic 2000 panelon 05-21-2024 Albumin BCP dye [Mass/Vol] 4.2 g/dL 3.4 - 5.0 g/dL [facility] ALP [Catalytic activity/Vol] 49 U/L 33 - 110 U/L [facility] ALT With P-5'-P [Catalytic activity/Vol] 20 U/L 7 - 45 U/L [facility] Comment on above: Patients treated wit h Sulfasalazine may generate falsely decreased results for ALT. Anion gap [Moles/Vol] 13 mmol/L 10 - 2 0 mmol/L [facility] AST With P-5'-P [Catalytic activity/Vol] 10 U/L 9 - 39 U/L [facility] Bilirubin [Mass/Vol] 0.5 mg/dL 0.0 - 1 .2 mg/dL [facility] Calcium [Mass/Vol] 9.8 mg/dL 8.6 - 10. 3 mg/dL [facility] Chloride [Moles/Vol] 103 mmol/L 98 - 10 7 mmol/L [facility] CO2 [Moles/Vol] 25 mmol/L 21 - 32 mmol/L [facility] Creatinine [Mass/Vol] 0.53 mg/dL 0.50 - 1.05 mg/dL [facility] eGFR - PINF [facility] Comment on above: Calculations of ascencion mated GFR are performed using the 2020 CKD-EPI Study Refit equation without the race variable for the IDMS-Traceable creatinine methods. https://jasn.asnjournals.org/content//ASN.033879 8552 Glucose [Mass/Vol] 150 mg/dL High 74 - 99 mg/dL [facility] Interpretation and review of laboratory results Abnormal [facility] Potassium [Moles/Vol] 3.7 mmol/L 3.5 - 5.3 mmol/L [facility] Protein [Mass/Vol] 7.4 g/dL 6.4 - 8.2 g/dL [facility] Sodium [Moles/Vol] 137 mmol/L 136 - 145 mmol/L [facility] Urea nitrogen [Mass/Vol] 14 mg/dL 6 - 23 mg/dL [facility] Albumin BCP dye [Mass/Vol] 4.2 g/dL Normal 3.4-5.0 [facility] Comment on above: Performed By: #### 2 4323-8 #### VALLADARES JOHN ([id number]) [facility] ([facility]) [address] [place] [address] ALP [Catalytic activity/Vol] 49 U/L Normal 33-110 [facility] Comment on above: Performed By: #### 2 4323-8 #### JACQUELYN LOPEZ ([id number]) [facility] ([facility]) [address] [place] [address] ALT With P-5'-P [Catalytic activity/Vol] 20 U/L Normal 7-45 [facility] Comment on above: Result Comment: Shantal ents treated with Sulfasalazine may generate falsely decreased results for ALT. Performed By: #### 2 432-8 #### JACQUELYN LOPEZ ([id number]) [facility] ([facility]) [address] [place] [address] Anion gap [Moles/Vol] 13 mmol/L Normal 10-20 [facility] Comment on above: Performed By: #### 2 432-8 #### JACQUELYN LOPEZ ([id number]) [facility] ([facility]) [address] [place] [address] AST With P-5'-P [Catalytic activity/Vol] 10 U/L Normal 9-39 [facility] Comment on above: Performed By: #### 2 432-8 #### JACQUELYN LOPEZ ([id number]) [facility] ([facility]) [address] [place] [address] Bilirubin [Mass/Vol] 0.5 mg/dL Normal 0.0-1.2 [facility] Comment on above: Performed By: #### 2 4323-8 #### JACQUELYN LOPEZ ([id number]) [facility] ([facility]) [address] [place] [address] Calcium [Mass/Vol] 9.8 mg/dL Normal 8.6-10.3 [facility] Comment on above: Performed By: #### 2 4323-8 #### JACQUELYN LOPEZ ([id number]) [facility] ([facility]) [address] [place] [address] Chloride [Moles/Vol] 103 mmol/L Normal 98-107 [facility] Comment on above: Performed By: #### 2 4323-8 #### JACQUELYN LOPEZ ([id number]) [facility] ([facility]) [address] [place] [address] 07067 CO2 [Moles/Vol] 25 mmol/L Normal 21-32 [facility] Comment on above: Performed By: #### 2 4323-8 #### JACQUELYN LOPEZ ([id number]) [facility] ([facility]) [address] [place] [address] 73211 Creatinine [Mass/Vol] 0.53 mg/dL Normal 0.50-1.05 [facility] Comment on above: Performed By: #### 2 4323-8 #### JACQUELYN LOPEZ ([id number]) [facility] ([facility]) [address] [place] [address] 71694 GFR/1.73 sq M.predicted MDRD (S/P/Bld) [Vol rate/Area] mL/min/{1.73_m2} Normal >60 [facility] Comment on above: Result Comment: Calc ulations of estimated GFR are performed using the 2020 CKD-EPI Study Refit equation without the race variable for the IDMS-Traceable creatinine methods. https://jasn.asnjournals.org/content/early//ASN.338658 8415 Performed By: #### 2 4323-8 #### JACQUELYN LOPEZ ([id number]) [facility] ([facility]) [address] [place] [address] 48467 Glucose [Mass/Vol] 150 mg/dL High 74-99 [facility] Comment on above: Performed By: #### 2 4323-8 #### JACQUELYN LOPEZ ([id number]) [facility] ([facility]) [address] [place] [address] 78691 Potassium [Moles/Vol] 3.7 mmol/L Normal 3.5-5.3 [facility] Comment on above: Performed By: #### 2 4323-8 #### JACQUELYN LOPEZ ([id number]) [facility] ([facility]) [address] [place] [address] 83605 Protein [Mass/Vol] 7.4 g/dL Normal 6.4-8.2 [facility] Comment on above: Performed By: #### 2 4323-8 #### JACQUELYN LOPEZ ([id number]) [facility] ([facility]) [address] [place], [place] [address] Sodium [Moles/Vol] 137 mmol/L Normal 136-145 [facility] Comment on above: Performed By: #### 2 4323-8 #### JACQUELYN LOPEZ ([id number]) [facility] ([facility]) [address] [place] [address] Urea nitrogen [Mass/Vol] 14 mg/dL Normal 6-23 [facility] Comment on above: Performed By: #### 2 4323-8 #### JACQUELYN LOPEZ ([id number]) [facility] ([facility]) [address] [place] [address] HCG.beta subunit Qnon 2023 Interpretation and review of laboratory results Abnormal [facility] Total HCG measuremen t is performed using the [place] Access Immunoassay which detects intact HCG and free beta HCG subunit. This test is not indicated for use as a tumor marker. HCG testing is performed using a different test methodology at [facility] than other [facility]. Direct result comparison should only be made within the same method. [facility] Urinalysis complete W Reflex Culture panel (U)on 05-21-2024 Appearance (U) Turbid Abnormal Clear [facility] Bacteria Auto (Urine sed) [#/Area] 2+ Abnormal NONE SEEN /HPF [facility] Bilirubin (U) [Mass/Vol] Negative NEGATIVE [facility] Color (U) Light-Yellow Light-Yellow , Yellow, Dark-Yellow [facility] Epithelial cells.squamous Auto (Urine sed) [#/Area] 10-25 (FEW) Reference range not established. /HPF [facility] Glucose Auto test strip (U) [Mass/Vol] OVER (4+) Abnormal Normal mg/dL [facility] Interpretation and review of laboratory results Abnormal [facility] Ketones (U) [Mass/Vol] Negative NEGATIVE mg/dL [facility] Leukocyte clumps Auto (Urine sed) [#/Area] RARE Reference range not established. /HPF [facility] Leukocyte esterase Auto test strip Ql (U) Negative NEGATIVE [facility] Mucus Auto (Urine sed) [#/Area] FEW Reference range not established. /LPF [facility] Nitrite Auto test strip Ql (U) Negative NEGATIVE [facility] pH (U) 6 [pH] 5.0, 5.5, 6.0, 6.5, 7.0, 7.5, 8.0 [facility] Protein (U) [Mass/Vol] 10 (TRACE) NEGATIVE, 10 (TRACE), 20 (TRACE) mg/dL [facility] RBC (U) [#/Vol] Negative NEGATIVE [facility] RBC Auto (Urine sed) [#/Area] 1-2 NONE, 1-2, 3-5 /HPF [facility] Specific gravity (U) [Rel density] 1.029 1.005 - 1.035 [facility] Urobilinogen (U) [Mass/Vol] 4 (2+) Abnormal Normal mg/dL [facility] Comment on above: Some pigments and me dications may cause a false positive urobilinogen. WBC Auto (Urine sed) [#/Area] 1-5 1-5, NONE /HPF [facility] OVER is reported whe n the result is greater than the clinically reportable range. [facility] Appearance (U) Turbid Normal Clear [facility] Comment on above: Order Comment: OVER is reported when the result is greater than the clinically reportable range. Performed By: #### 5 8077-9 #### JACQUELYN LOPEZ ([id number]) [facility] ([facility]) [address] [place] [address] Bacteria Auto (Urine sed) [#/Area] 2+ /HPF Abnormal NONE SEEN [facility] Comment on above: Performed By: #### 5 8077-9 #### JACQUELYN LOPEZ ([id number]) [facility] ([facility]) [address] [place] [address] Bilirubin (U) [Mass/Vol] Negative Normal NEGATIVE [facility] Comment on above: Order Comment: OVER is reported when the result is greater than the clinically reportable range. Performed By: #### 5 8077-9 #### JACQUELYN LOPEZ ([id number]) [facility] ([facility]) [address] [place] [address] Color (U) Light-Yellow Normal Light-Yellow , Yellow, Dark-Yellow [facility] Comment on above: Order Comment: OVER is reported when the result is greater than the clinically reportable range. Performed By: #### 5 8077-9 #### JACQUELYN LOPEZ ([id number]) [facility] ([facility]) [address] [place] [address] Epithelial cells.squamous Auto (Urine sed) [#/Area] 10-25 (FEW) Normal Reference range not established. [facility] Comment on above: Performed By: #### 5 8077-9 #### JACQUELYN LOPEZ ([id number]) [facility] ([facility]) [address] [place] [address] Glucose Auto test strip (U) [Mass/Vol] OVER (4+) Abnormal Normal [facility] Comment on above: Order Comment: OVER is reported when the result is greater than the clinically reportable range. Performed By: #### 5 8077-9 #### JACQUELYN LOPEZ ([id number]) [facility] ([facility]) [address] [place] [address] Ketones (U) [Mass/Vol] Negative Normal NEGATIVE [facility] Comment on above: Order Comment: OVER is reported when the result is greater than the clinically reportable range. Performed By: #### 5 8077-9 #### JACQUELYN LOPEZ ([id number]) [facility] ([facility]) [address] [place] [address] Leukocyte clumps Auto (Urine sed) [#/Area] RARE Normal Reference range not established. [facility] Comment on above: Performed By: #### 5 8077-9 #### JACQUELYN LOPEZ ([id number]) [facility] ([facility]) [address] [place], [place] [address] Leukocyte esterase Auto test strip Ql (U) Negative Normal NEGATIVE [facility] Comment on above: Order Comment: OVER is reported when the result is greater than the clinically reportable range. Performed By: #### 5 8077-9 #### JACQUELYN LOPEZ ([id number]) [facility] ([facility]) [address] [place] [address] 42118 Mucus Auto (Urine sed) [#/Area] FEW Normal Reference range not established. [facility] Comment on above: Performed By: #### 5 8077-9 #### JACQUELYN LOPEZ ([id number]) [facility] ([facility]) [address] [place] [address] 98400 Nitrite Auto test strip Ql (U) Negative Normal NEGATIVE [facility] Comment on above: Order Comment: OVER is reported when the result is greater than the clinically reportable range. Performed By: #### 5 8077-9 #### JACQUELYN LOPEZ ([id number]) [facility] ([facility]) [address] [place], [place] [address] pH (U) 6.0 [pH] Normal 5.0, 5.5, 6.0, 6.5, 7.0, 7.5, 8.0 [facility] Comment on above: Order Comment: OVER is reported when the result is greater than the clinically reportable range. Performed By: #### 5 8077-9 #### JACQUELYN LOPEZ ([id number]) [facility] ([facility]) [address] [place] [address] 06818 Protein (U) [Mass/Vol] 10 (TRACE) Normal NEGATIVE, 10 (TRACE), 20 (TRACE) [facility] Comment on above: Order Comment: OVER is reported when the result is greater than the clinically reportable range. Performed By: #### 5 8077-9 #### JACQUELYN LOPEZ ([id number]) [facility] ([facility]) [address] [place] [address] 03919 RBC (U) [#/Vol] Negative Normal NEGATIVE [facility] Comment on above: Order Comment: OVER is reported when the result is greater than the clinically reportable range. Performed By: #### 5 8077-9 #### JACQUELYN LOPEZ ([id number]) [facility] ([facility]) [address] [place] [address] 17608 RBC Auto (Urine sed) [#/Area] 1-2 Normal NONE, 1-2, 3-5 [facility] Comment on above: Performed By: #### 5 8077-9 #### JACQUELYN LOPEZ ([id number]) [facility] ([facility]) [address] [place] [address] Specific gravity (U) [Rel density] 1.029 Normal 1.005-1.035 [facility] Comment on above: Order Comment: OVER is reported when the result is greater than the clinically reportable range. Performed By: #### 5 8077-9 #### JACQUELYN LOPEZ ([id number]) [facility] ([facility]) [address] [place] [address] Urobilinogen (U) [Mass/Vol] 4 (2+) Abnormal Normal [facility] Comment on above: Order Comment: OVER is reported when the result is greater than the clinically reportable range. Result Comment: Some pigments and medications may cause a false positive urobilinogen. Performed By: #### 5 8077-9 #### JACQUELYN LOPEZ ([id number]) [facility] ([facility]) [address] [place] [address] WBC Auto (Urine sed) [#/Area] 1-5 Normal 1-5, NONE [facility] Comment on above: Performed By: #### 5 8077-9 #### JACQUELYN LOPEZ ([id number]) [facility] ([facility]) [address] [place] [address]42 hCG, quantitative, on 05-21-2024 [place] [address] m[IU]/mL High NINF U [facility] Comment on above: Low-level positive [...] the HCG elevation. CNPNon 05-20-2024 CNPN Normal [facility] CNPNon 05-17-2024 CNPN Normal [facility] CNPNon 05-10-2024 CNPN Normal [facility] CNPNon 05-09-2024 CNPN Normal [facility] BACTERIAL VAGINOSIS NAATon 1 07-07-2023 Lactobacillus crispatus+gasseri+dez senii + Gardnerella vaginalis + Atopobium vaginae rRNA SUMIT+probe Ql (Vag fld) Detected Abnormal Not detected [facility] Comment on above: Order Comment: Speci men Type: SWABOrdering Facility: [facility] Address: [address] [place] [address] Performed By: #### 3 6902-5, BVAMP ####[facility] LABCLIA [id number] [place] [address] [place] Bacteria Ur Culton Bacteria identified Cx Nom (U) ORGANISM ID: 1 10,000 -<50,000 CFU/ml Normal urogenital hima Streptococcus agalactiae (Group B streptococcus) was identified in this specimen, which is clinically relevant if the individual is . Normal [facility] Comment on above: Performed By: #### 6 30-4 ####[facility] LABCLIA [id number] [place] [address] [place] C. trachomatis+N. gonorrhoea e DNA SUMIT+probe Ql (Unsp spec)on 05-07-2024 C. trachomatis rRNA SUMIT+probe Ql (Unsp spec) Not detected Normal Not detected [facility] Comment on above: Order Comment: Speci men Type: SWABOrdering Facility: [facility] Address: [address] [place] [address] Performed By: #### 3 6902-5, BVAMP ####[facility] LABCLIA [id number] [place] [address] [place] N. gonorrhoeae rRNA SUMIT+probe Ql (Unsp spec) Not detected Normal Not detected [facility] Comment on above: Order Comment: Speci men Type: SWABOrdering Facility: [facility] Address: [address] [place] [address] Performed By: #### 3 6902-5, BVAMP ####[facility] LABCLIA [id number] [place] [address] [place] JOSUÉ/TRICHOMONAS NAATon 07-07-2023 C. glabrata RNA SUMIT+probe Ql (Vag fld) Not detected Normal Not detected [facility] Comment on above: Order Comment: Speci men Type: SWABOrdering Facility: [facility] Address: [address] [place] [address] Performed By: #### C VTV ####[facility] LABCLIA [id number] [address] [place] Josué sp DNA SUMIT+probe Ql (Vag fld) Not detected Normal Not detected [facility] Comment on above: Order Comment: Speci men Type: SWABOrdering Facility: [facility] Address: [address] [place] [address] Result Comment: The Josué species group target includes C. albicans, C. tropicalis, C. parapsilosis, and C. dubliniensis. Performed By: #### C VTV ####[facility] LABCLIA [id number] [address] [place] T. vaginalis DNA SUMIT+probe Ql (Unsp spec) Not detected Normal Not detected [facility] Comment on above: Order Comment: Speci men Type: SWABOrdering Facility: [facility] Address: [address] [place] [address] Performed By: #### C VTV ####[facility] LABCLIA [id number] [place] [address] [place] CARRIER SCREEN, STANDARDon 07-07-2023 CARRIER SCREEN RESULTS View results in Scanned Documents link when available. Normal [facility] Comment on above: Order Comment: Speci men Type: BLOOD SPECIMENOrdering Facility: [facility] Address: [address] [place] [address] Performed By: #### C RRSCN ####MYRIADCLIA [id number] [place] [address] CBC W Auto Differential pane l (Bld)on 05-07-2024 Basophils (Bld) [#/Vol] 0.04 10*3/uL Normal <0.11 [facility] Comment on above: Order Comment: Speci men Type: BLOOD SPECIMENOrdering Facility: [facility] Address: [address] [place] [address] Performed By: #### 5 7021-8 ####[facility] [id number] [place] [address] [place] Basophils/100 WBC (Bld) 0.7 % Normal [facility] Comment on above: Order Comment: Speci men Type: BLOOD SPECIMENOrdering Facility: [facility] Address: [address] [place] [address] Performed By: #### 5 7021-8 ####[facility] [id number] [place] [address] [place] Differential cell count method Nom (Bld) Auto Normal [facility] Comment on above: Order Comment: Speci men Type: BLOOD SPECIMENOrdering Facility: [facility] Address: [address] [place] [address] Performed By: #### 5 7021-8 ####[facility] [id number] [place] [address] [place] Eosinophils (Bld) [#/Vol] 0.14 10*3/uL Normal <0.46 [facility] Comment on above: Order Comment: Speci men Type: BLOOD SPECIMENOrdering Facility: [facility] Address: [address] [place] [address] Performed By: #### 5 7021-8 ####[facility] MILLWNCLIA [id number] [place] [address] [place] Eosinophils/100 WBC (Bld) 2.3 % Normal [facility] Comment on above: Order Comment: Speci men Type: BLOOD SPECIMENOrdering Facility: [facility] Address: [address] [place] [address] Performed By: #### 5 7021-8 ####[facility] BOULEVARDKLAUSLIA [id number] [place] [address] [place] Erythrocyte distribution width (RBC) [Ratio] 12.2 % Normal 11.5-15.0 [facility] Comment on above: Order Comment: Speci men Type: BLOOD SPECIMENOrdering Facility: [facility] Address: [address] [place] [address] Performed By: #### 5 7021-8 ####[facility] CENTERLIA [id number] [place] [address] [place] Hematocrit (Bld) [Volume fraction] 42.1 % Normal 36.0-46.0 [facility] Comment on above: Order Comment: Speci men Type: BLOOD SPECIMENOrdering Facility: [facility] Address: [address] [place] [address] Performed By: #### 5 7021-8 ####[facility]ENTERLIA [id number] [place] [address] [place] Hemoglobin (Bld) [Mass/Vol] 14.8 g/dL Normal 11.5-15.5 [facility] Comment on above: Order Comment: Speci men Type: BLOOD SPECIMENOrdering Facility: [facility] Address: [address] [place] [address] Performed By: #### 5 7021-8 ####[facility] BOULEVARDNCLIA [id number] [place] [address] [place] Immature granulocytes (Bld) [#/Vol] 10*3/uL Normal <0.10 [facility] Comment on above: Order Comment: Speci men Type: BLOOD SPECIMENOrdering Facility: [facility] Address: [address] [place] [address] Performed By: #### 5 7021-8 ####[facility] [id number] [place] [address] [place] Immature granulocytes/100 WBC (Bld) 0.2 % Normal [facility] Comment on above: Order Comment: Speci men Type: BLOOD SPECIMENOrdering Facility: [facility] Address: [address] [place] [address] Performed By: #### 5 7021-8 ####[facility] [id number] [place] [address] [place] Lymphocytes (Bld) [#/Vol] 2.83 10*3/uL Normal 1.00-4.00 [facility] Comment on above: Order Comment: Speci men Type: BLOOD SPECIMENOrdering Facility: [facility] Address: [address] [place] [address] Performed By: #### 5 7021-8 ####[facility] [id number] [place] [address] [place] Lymphocytes/100 WBC (Bld) 46.6 % Normal [facility] Comment on above: Order Comment: Speci men Type: BLOOD SPECIMENOrdering Facility: [facility] Address: [address] [place] [address] Performed By: #### 5 7021-8 ####[facility] [id number] [place] [address] [place] MCH (RBC) [Entitic mass] 28.7 pg Normal 26.0-34.0 [facility] Comment on above: Order Comment: Speci men Type: BLOOD SPECIMENOrdering Facility: [facility] Address: [address] [place] [address] Performed By: #### 5 7021-8 ####[facility] HAROLDO NUNESRUFINORaymond [id number] [place] [address] [place] MCHC (RBC) [Mass/Vol] 35.2 g/dL Normal 30.5-36.0 [facility] Comment on above: Order Comment: Speci men Type: BLOOD SPECIMENOrdering Facility: [facility] Address: [address] [place] [address] Performed By: #### 5 7021-8 ####[facility] VICKYMCHENRYVERNON [id number] [place] [address] [place] MCV (RBC) [Entitic vol] 81.7 fL Normal 80.0-100.0 [facility] Comment on above: Order Comment: Speci men Type: BLOOD SPECIMENOrdering Facility: [facility] Address: [address] [place] [address] Performed By: #### 5 7021-8 ####[facility] BOU[facility]ARDVERNON [id number] [place] [address] [place] Monocytes (Bld) [#/Vol] 0.37 10*3/uL Normal <0.87 [facility] Comment on above: Order Comment: Speci men Type: BLOOD SPECIMENOrdering Facility: [facility] Address: [address] [place] [address] Performed By: #### 5 7021-8 ####[facility] BOULEVARDKLAUSLIRaymond [id number] [place] [address] [place] Monocytes/100 WBC (Bld) 6.1 % Normal [facility] Comment on above: Order Comment: Speci men Type: BLOOD SPECIMENOrdering Facility: [facility] Address: [address] [place] [address] Performed By: #### 5 7021-8 ####[facility] MILLTOWNCLIA [id number] [place] [address] [place] Neutrophils (Bld) [#/Vol] 2.68 10*3/uL Normal 1.45-7.50 [facility] Comment on above: Order Comment: Speci men Type: BLOOD SPECIMENOrdering Facility: [facility] Address: [address] [place] [address] Performed By: #### 5 7021-8 ####[facility] BOULEVARDNCLIA [id number] [place] [address] [place] Neutrophils/100 WBC (Bld) 44.1 % Normal [facility] Comment on above: Order Comment: Speci men Type: BLOOD SPECIMENOrdering Facility: [facility] Address: [address] [place] [address] Performed By: #### 5 7021-8 ####[facility] CENTERLIA [id number] [place] [address] [place] Nucleated RBC (Bld) [#/Vol] 10*3/uL Normal <0.01 [facility] Comment on above: Order Comment: Speci men Type: BLOOD SPECIMENOrdering Facility: [facility] Address: [address] [place] [address] Performed By: #### 5 7021-8 ####[facility]ENTERLIA [id number] [place] [address] [place] Nucleated RBC/100 WBC (Bld) [Ratio] 0.0 /100 WBC Normal [facility] Comment on above: Order Comment: Speci men Type: BLOOD SPECIMENOrdering Facility: [facility] Address: [address] [place] [address] Performed By: #### 5 7021-8 ####[facility] BOULEVARDNCLIA [id number] [place] [address] [place] Platelet mean volume (Bld) [Entitic vol] 9.6 fL Normal 9.0-12.7 [facility] Comment on above: Order Comment: Speci men Type: BLOOD SPECIMENOrdering Facility: [facility] Address: [address] [place] [address] Performed By: #### 5 7021-8 ####[facility] BOULEVARDNCLIA [id number] [place] [address] [place] Platelets (Bld) [#/Vol] 301 10*3/uL Normal 150-400 [facility] Comment on above: Order Comment: Speci men Type: BLOOD SPECIMENOrdering Facility: [facility] Address: [address] [place] [address] Performed By: #### 5 7021-8 ####[facility] BOULEVARDNCA [id number] [place] [address] [place] RBC (Bld) [#/Vol] 5.15 10*6/uL Normal 3.90-5.20 [facility] Comment on above: Order Comment: Speci men Type: BLOOD SPECIMENOrdering Facility: [facility] Address: [address] [place] [address] Performed By: #### 5 7021-8 ####[facility]ARDNCLIA [id number] [place] [address] [place] WBC (Bld) [#/Vol] 6.07 10*3/uL Normal 3.70-11.00 [facility] Comment on above: Order Comment: Speci men Type: BLOOD SPECIMENOrdering Facility: [facility] Address: [address] [place] [address] Performed By: #### 5 7021-8 ####[facility] HOSPITALWNCLIA [id number] [place] [address] [place] Comprehensive metabolic 2000 panelOrdered By: Mikki Celaya on 05-07-2024 Albumin [Mass/Vol] 4.4 g/dL 3.9 - 4.9 g/dL [facility] ALP [Catalytic activity/Vol] 69 U/L 34 - 123 U/L [facility] ALT [Catalytic activity/Vol] 16 U/L 7 - 38 U/L [facility] Anion gap [Moles/Vol] 9 mmol/L 8 - 15 mmol/L [facility] AST [Catalytic activity/Vol] 10 U/L Low 13 - 35 U/L [facility] Bilirubin [Mass/Vol] 0.6 mg/dL 0.2 - 1 .3 mg/dL [facility] Calcium [Mass/Vol] 9.7 mg/dL 8.5 - 10. 2 mg/dL [facility] Chloride [Moles/Vol] 101 mmol/L 98 - 10 7 mmol/L [facility] CO2 [Moles/Vol] 23 mmol/L 22 - 30 mmol/L [facility] Creatinine [Mass/Vol] 0.43 mg/dL Low 0.58 - 0.96 mg/dL [facility] GFR/1.73 sq M.predicted among non-blacks MDRD (S/P/Bld) [Vol rate/Area] 135 mL/min/{1.73_m2} - PINF [facility] Comment on above: Estimated Glomerular Filtration [...] 216 mg/dL High 74 - 99 mg/dL [facility] Comment on above: The [place] Diabete s Association (ADA) provides guidance for [...] Standards of Medical Care in Diabetes 2016, [place] [employer] Association. Diabetes Care. 2016.39(Suppl 1). Interpretation and review of laboratory results Abnormal [facility] Potassium [Moles/Vol] 3.9 mmol/L 3.7 - 5.1 mmol/L [facility] Protein [Mass/Vol] 7.3 g/dL 6.3 - 8.0 g/dL [facility] Sodium [Moles/Vol] 133 mmol/L Low 136 - 144 mmol/L [facility] Urea nitrogen [Mass/Vol] 7 mg/dL 7 - 21 mg/dL [facility] Comprehensive metabolic 2000 panelon 05-07-2024 Albumin [Mass/Vol] 4.4 g/dL Normal 3.9-4.9 [facility] Comment on above: Order Comment: Gume escobedo Type: BLOOD SPECIMENOrdering Facility: [facility] Address: [address] [place] [address] Performed By: #### 2 4323-8 ####[facility] CENTERLIA [id number] [place] [address] [place] ALP [Catalytic activity/Vol] 69 U/L Normal 34-123 [facility] Comment on above: Order Comment: Gume escobedo Type: BLOOD SPECIMENOrdering Facility: [facility] Address: [address] [place] [address] Performed By: #### 2 4323-8 ####[facility] HOSPITALWNCLIA [id number] [place] [address] [place] ALT [Catalytic activity/Vol] 16 U/L Normal 7-38 [facility] Comment on above: Order Comment: Milanai gregg Type: BLOOD SPECIMENOrdering Facility: [facility] Address: [address] [place] [address] Performed By: #### 2 4323-8 ####[facility] B[facility]ARDNCLIA [id number] [place] [address] [place] Anion gap [Moles/Vol] 9 mmol/L Normal 8-15 [facility] Comment on above: Order Comment: Speci men Type: BLOOD SPECIMENOrdering Facility: [facility] Address: [address] [place] [address] Performed By: #### 2 4323-8 ####[facility]ARDNCLIA [id number] [place] [address] [place] AST [Catalytic activity/Vol] 10 U/L Low 13-35 [facility] Comment on above: Order Comment: Speci men Type: BLOOD SPECIMENOrdering Facility: [facility] Address: [address] [place] [address] Performed By: #### 2 4323-8 ####[facility] [id number] [place] [address] [place] Bilirubin [Mass/Vol] 0.6 mg/dL Normal 0.2-1.3 [facility] Comment on above: Order Comment: Speci men Type: BLOOD SPECIMENOrdering Facility: [facility] Address: [address] [place] [address] Performed By: #### 2 4323-8 ####[facility]ARDNCSTEWARD HEALTH [facility] [id number] [place] [address] [place] Calcium [Mass/Vol] 9.7 mg/dL Normal 8.5-10.2 [facility] Comment on above: Order Comment: Speci men Type: BLOOD SPECIMENOrdering Facility: [facility] Address: [address] [place] [address] Performed By: #### 2 4323-8 ####[facility]LEVARDNCLIA [id number] [place] [address] [place] Chloride [Moles/Vol] 101 mmol/L Normal 98-107 [facility] Comment on above: Order Comment: Speci men Type: BLOOD SPECIMENOrdering Facility: [facility] Address: [address] [place] [address] Performed By: #### 2 4323-8 ####[facility]ARDNCLIA [id number] [place] [address] [place] CO2 [Moles/Vol] 23 mmol/L Normal 22-30 [facility] Comment on above: Order Comment: Speci men Type: BLOOD SPECIMENOrdering Facility: [facility] Address: [address] [place] [address] Performed By: #### 2 4323-8 ####[facility] B[facility]ARDNCLI [id number] [place] [address] [place] Creatinine [Mass/Vol] 0.43 mg/dL Low 0.58-0.96 [facility] Comment on above: Order Comment: Speci men Type: BLOOD SPECIMENOrdering Facility: [facility] Address: [address] [place] [address] Performed By: #### 2 4323-8 ####[facility] [id number] [place] [address] [place] Creatinine and Glomerular filtration rate.predicted panel (S/P/Bld) 135 mL/min/1.73m??? Normal >=60 [facility] Comment on above: Order Comment: Speci men Type: BLOOD SPECIMENOrdering Facility: [facility] Address: [address] [place] [address] Result Comment: Ascencion mated Glomerular Filtration Rate [...] actual GFR. Performed By: #### 2 4323-8 ####[facility]PITALWNCLIA [id number] [place] [address] [place] Glucose [Mass/Vol] 216 mg/dL High 74-99 [facility] Comment on above: Order Comment: Speci men Type: BLOOD SPECIMENOrdering Facility: [facility] Address: [address] [place] [address] Result Comment: The [place] Diabetes Association (ADA) provides guidance for cutoff [...] Standards of Medical Care in Diabetes 2016, [place] Diabetes Association. Diabetes Care. 2016.39(Suppl 1). Performed By: #### 2 4323-8 ####[facility] B[facility]ARDKLAUSRaymond [id number] [place] [address] [place] Potassium [Moles/Vol] 3.9 mmol/L Normal 3.7-5.1 [facility] Comment on above: Order Comment: Milanai men Type: BLOOD SPECIMENOrdering Facility: [facility] Address: [address] [place] [address] Performed By: #### 2 4323-8 ####[facility] B[facility]LEVARDVERNON [id number] [place] [address] [place] Protein [Mass/Vol] 7.3 g/dL Normal 6.3-8.0 [facility] Comment on above: Order Comment: Speci men Type: BLOOD SPECIMENOrdering Facility: [facility] Address: [address] [place] [address] Performed By: #### 2 4323-8 ####[facility] CENTERLIA [id number] [place] [address] [place] Sodium [Moles/Vol] 133 mmol/L Low 136-144 [facility] Comment on above: Order Comment: Speci men Type: BLOOD SPECIMENOrdering Facility: [facility] Address: [address] [place] [address] Performed By: #### 2 4323-8 ####[facility] [id number] [place] [address] [place] Urea nitrogen [Mass/Vol] 7 mg/dL Normal 7-21 [facility] Comment on above: Order Comment: Speci men Type: BLOOD SPECIMENOrdering Facility: [facility] Address: [address] [place] [address] Performed By: #### 2 4323-8 ####[facility]ARDNCSTEWARD HEALTH CARE SYSTEM [id number] [place] [address] [place] HBV surface Ag Ser Qlon 04-10 HBV surface Ag Ql (S) Negative Normal Negative [facility] Comment on above: Order Comment: Speci men Type: BLOOD SPECIMENOrdering Facility: [facility] Address: [address] [place] [address] Performed By: #### 5 195-3, 61952-7, 80756-8 ####[facility] LABCLIA [id number] [place] [address] [place] HCV Ab Ser Qlon 05-07-2024 HCV Ab Ql (S) Negative Normal Negative [facility] Comment on above: Order Comment: Speci men Type: BLOOD SPECIMENOrdering Facility: [facility] Address: [address] [place] [address] Result Comment: The result suggests no evidence of active infection with Hepatitis C virus. Should recent infection be suspected, repeat testing may be considered 4-6 weeks after this draw. Performed By: #### 1 6128-1 ####[facility] LABCLIA [id number] [place] [address] [place] HIV 1+2 Ab IA Qlon 11-29-202 4 HIV 1 and 2 Ab IA.rapid Nom (S/P/Bld) Normal [facility] Comment on above: Order Comment: Speci men Type: BLOOD SPECIMENOrdering Facility: [facility] Address: [address] [place] [address] Result Comment: Test not indicated. Performed By: #### 5 195-3, 00653-2, 61013-7 ####[facility] LABCLIA [id number] [place] [address] [place] HIV 1+2 Ab+HIV1 p24 Ag IA Ql Non-Reactive Normal Nonreactive [facility] Comment on above: Order Comment: Speci men Type: BLOOD SPECIMENOrdering Facility: [facility] Address: [address] [place] [address] Performed By: #### 5 195-3, 40616-4, 31178-4 ####[facility] LABCLIA [id number] [place] [address] [place] HIV immunoassay testing algorithm interpretation (S/P/Bld) [Interp] Normal [facility] Comment on above: Order Comment: Speci men Type: BLOOD SPECIMENOrdering Facility: [facility] Address: [address] [place] [address] Result Comment: No e vidence of HIV-1 or HIV-2 infection. Should recent infection be suspected, repeat testing may be considered 2-3 weeks after this draw.[place] Rev. Code 3701.243(E): This information has been [...] or diagnoses. Performed By: #### 5 195-3, 54837-0, 08601-7 ####[facility] LABCLIA [id number] [place] [id number] [place] PAP TESTon 05-07-2024 ADEQUACY Satisfactory for interpretation. Normal [facility] Comment on above: Order Comment: Speci men Type: FLUID SPECIMENOrdering Facility: [facility] Address: [address] [place] [address] Performed By: #### L [id number] ####[facility] LABCLIA [id number] [place] [address] [place] CASE REPORT Normal [facility] Comment on above: Order Comment: Speci men Type: FLUID SPECIMENOrdering Facility: [facility] Address: [address] [place] [address] Result Comment: Gyne cologic Cytology Report Case: [id number] Provider: Zayda Parker APRN.BUSINESS OBJECTS DEVELOPER Collected: 05/07/2024 10:48 AMOrdering Location: OB/Gynecology Received: 05/07/2024 12:13 PMFirst Screen: Jayne [place], [place], ASCPSpecimen: Pap Test, ThinPrep, Cervix Performed By: #### L [id number] ####[facility] LABCLIA [id number] [place] [address] [place] CLINICAL HISTORY, CYTOLOGY, CHILDCARE TEACHER Routine Exam Normal [facility] Comment on above: Order Comment: Speci men Type: FLUID SPECIMENOrdering Facility: [facility] Address: [address] [place] [address] Result Comment: Preg nant (Indicate Weeks) Performed By: #### L [id number] ####[facility] LABCLIA [id number] [place] [address] [place] CYTOLOGY PAP OTHER INTERPRETATION Predominance of coccobacilli consistent with shift in vaginal hima. Normal [facility] Comment on above: Order Comment: Speci men Type: FLUID SPECIMENOrdering Facility: [facility] Address: [address] [place] [address] Performed By: #### L [id number] ####[facility] LABCLIA [id number] [address] [id number], [place] [address] [place] FINAL PERFORMING LAB Normal [facility] Comment on above: Order Comment: Speci men Type: FLUID SPECIMENOrdering Facility: [facility] Address: [address] [place] [address] Result Comment: Tech nical component, hall coordinator screening performed at [facility], [address] [place] [address] CLIA# [id number] interpretation performed at [facility], [address] [place] [address] CLIA# [id number] Director: Gavin Boss M.D. Performed By: #### L [id number] ####[facility] LABCLIA [id number] [place] [address] [place] INTERPRETATION, CYTOLOGY, CHILDCARE TEACHER Normal [facility] Comment on above: Order Comment: Speci men Type: FLUID SPECIMENOrdering Facility: [facility] Address: [address] [place] [address] Result Comment: Nega tive for intraepithelial lesion or malignancy. Performed By: #### L [id number] ####[facility] LABCLIA [id number] [place] [address] [place] LMP 03/13/2024 Normal [facility] Comment on above: Order Comment: Speci men Type: FLUID SPECIMENOrdering Facility: [facility] Address: [address] [place] [address] Performed By: #### L [id number] ####[facility] LABCLIA [id number] [place] [address] [place] PAP DISCLAIMER COMMENT The Pap Smear is a screening test for cervical cancer. False negative results occur with all screening tests, emphasizing the need for rescreening at recommended intervals, and clinical correlation. Normal [facility] Comment on above: Order Comment: Speci men Type: FLUID SPECIMENOrdering Facility: [facility] Address: [address] [place] [address] Performed By: #### L [id number] ####[facility] LABCLIA [id number] [address] [address] [place] PAP HOOP MAKER MACHINE COMMENT Normal [facility] Comment on above: Order Comment: Speci men Type: FLUID SPECIMENOrdering Facility: [facility] Address: [address] [place] [address] Performed By: #### L [id number] ####[facility] LABCLIA [id number] [address] [address] [place] POC CUSTOMS CONSULTANT ULTRASOUNDon 05-07-20 24 Indication Viability; confirm cardiac [...] Read By: Zayda Parker NP MATERNAL MEDICINE [facility] Radiology Study observation (narrative) [facility] Prot/Creat Uron 05-07-2024 Protein/Creatinine (U) [Mass ratio] 0.09 mg/mg Normal <0.15 [facility] Comment on above: Order Comment: Speci men Type: URINE SPECIMENOrdering Facility: [facility] Address: [address] [place], [place] [address] Result Comment: Adul t Proteinuria Categories:<0.15 mg/mg is considered normal to mildly increased0.15 - 0.50 mg/mg is considered moderately increased>0.50 mg/mg is considered severely increasedKDIGO. (2013). KDIGO 2012 Clinical Practice Guideline for the Evaluation and Management of Chronic Kidney Disease. Official Journal of the International Society of Nephrology, 3(1), 1-150. Performed By: #### 2 890-2 ####[facility] LABIA [id number] [place] [address] [place] Protein/Creatinine (U) [Mass ratio]on 05-07-2024 Creatinine (U) [Mass/Vol] 58.6 mg/dL Normal 20.0-300.0 [facility] Comment on above: Order Comment: Gume escobedo Type: URINE SPECIMENOrdering Facility: [facility] Address: [address] [place] [address] Performed By: #### 2 890-2 ####[facility] [id number] [place] [address] [place] Protein (U) [Mass/Vol] 5 mg/dL Normal 0-20 [facility] Comment on above: Order Comment: Gume escobedo Type: URINE SPECIMENOrdering Facility: [facility] Address: [address] [place] [address] Performed By: #### 2 890-2 ####[facility] [id number] [place] [address] [place] RUBELLA IGG ANTIBODYon 05-07 RUBELLA IGG AB, QUAL Negative Abnormal Positive [facility] Comment on above: Order Comment: Gume escobedo Type: BLOOD SPECIMENOrdering Facility: [facility] Address: [address] [place] [address] Result Comment: The result suggests no history of Rubella vaccination or exposure to Rubella virus, however, some individuals with past history of Rubella vaccination may test negative using this test as immunity to Rubella virus wanes over time after vaccination. Please correlate with vaccination history if applicable. Performed By: #### R UBIGG ####[facility] LABCLIA [id number] [place] [address] [place] Reagin and Treponema pallidu m IgG and IgM [Interp]on 05-07-2024 T. pallidum IgG+IgM IA Ql (S) Non-Reactive Normal Nonreactive [facility] Comment on above: Order Comment: Speci men Type: BLOOD SPECIMENOrdering Facility: [facility] Address: [address] [place] [address] Performed By: #### 5 195-3, 52035-3, 08923-5 ####[facility] LABIA [id number] [place] [address] [place] Reagin+T pallidum IgG+IgM Se rPl-Impon 05-07-2024 Reagin and Treponema pallidum IgG and IgM [Interp] Cannot exclude recent Treponemal infection if specimen collected within 7-10 days after appearance of suspect lesions or 2-3 weeks after an exposure. Clinical correlation is required. Normal [facility] Comment on above: Order Comment: Speci men Type: BLOOD SPECIMENOrdering Facility: [facility] Address: [address] [place] [address] Performed By: #### 5 195-3, 66809-2, 91058-7 ####[facility] LABIA [id number] [place] [address] [place] TSH SerPl-aCncon 05-07-2024 TSH Qn 0.807 m[IU]/L Normal 0.270-4.200 [facility] Comment on above: Order Comment: Speci men Type: BLOOD SPECIMENOrdering Facility: [facility] Address: [address] [place] [address] Result Comment: If t he patient is , TSH reference range varies by gestational period:First Trimester (weeks 9-12): 0.180-2.990 mIU/LSecond Trimester: 0.110-3.980 mIU/LThird Trimester: 0.480-4.710 mIU/Jerrell Gonzalez et al. A Practical Approach for the Verifications and Determination of Site- and Trimester-Specific Reference Intervals for Thyroid Function tests in . Thyroid, 2019:29:3:412-420. Lm E, et al. 2017 Guidelines of the [place] Thyroid Association for the Diagnosis and Management of Thyroid Disease during and the . Thyroid, 2017:27:3:315-389. Performed By: #### 3 016-3 ####[facility] LABCLIA [id number] [address] [facility] TYPE + SCREEN PRENATALon ABO A Normal [facility] Comment on above: Order Comment: Speci men Type: BLOOD SPECIMENOrdering Facility: [facility] Address: [address] [place] [address] Performed By: #### T SPN ####[facility] BLOOD BANKIA [id number] [place] [address] [place] Rh Nom (Bld) Positive Normal [facility] Comment on above: Order Comment: Speci men Type: BLOOD SPECIMENOrdering Facility: [facility] Address: [address] [place] [address] Performed By: #### T SPN ####[facility] BLOOD BANKIA [id number] [place] [address] [place] TYPE AND SCREEN EXPIRATION 05/10/2024 23:59 Normal [facility] Comment on above: Order Comment: Speci men Type: BLOOD SPECIMENOrdering Facility: [facility] Address: [address] [place] [address] Performed By: #### T SPN ####[facility] BLOOD BANKIA [id number] [place] [address] [place] CNOVon 05-03-2024 CNOV Normal [facility] CNPNon 05-03-2024 CNPN Normal [facility] HEMOGLOBIN A1C (POC)on 11-25 -2024 HbA1c (Bld) [Mass fraction] 10.5 % Abnormal 4.3 - 5.6 % [facility] Comment on above: Location:[facility], [address] [place] [address], [facility] Point of care (POC) Hemoglobin A1c [...] specific diabetes management situations: The POC device ton container shipper provides a normal range of 4.2% to 6.5% for the HGBA1C POC test. However, the [place] Diabetes Association guidelines indicate that patients with [...] Interpretation and review of laboratory results Abnormal [facility] 04-23-2024 [facility] Normal [facility] 04-19-2024 [facility] Normal [facility] Bacteria identifiedon 2023 Bacteria identified Cx Nom (U) Test: Urine Culture Specimen Source: Clean Catch/Voided Specimen Type: Urine Specimen Date: 04/18/20241916 Result Date: 04/21/2024 105 Result Status: Final result Abnormal: Yes Resulting Lab: [facility] [address] [place] [address] CULTURE >100,000 Escherichia coli (Abnormal) SUSCEPTIBILITY Escherichia coli METHOD MICROSCAN --- AMPICILLIN <=8.000 ug/ml Susceptible CEFAZOLIN <=2 ug/ml Susceptible CEFAZOLIN (UNCOMPLICATED UTIS ONLY) <=2 ug/ml Susceptible CIPROFLOXACIN <=0.250 ug/ml Susceptible GENTAMICIN <=2.000 ug/ml Susceptible NITROFURANTOIN <=32 ug/ml Susceptible PIPERACILLIN/TAZOBACTAM <=8.000 ug/ml Susceptible TRIMETHOPRIM/SULFAMETHO XAZOLE <=2/38 ug/ml Susceptible Abnormal [facility] Comment on above: Performed By: #### 6 30-4 #### AQUILES Gonzalez ([id number]) [facility] ([facility]) [address] [place] [address] C. trachomatis and N. gonorr hoeae DNA SUMIT+probe Nom (Unsp spec)on 04-18-2024 C. trachomatis rRNA SUMIT+probe Ql (Unsp spec) Not detected Not Detected [facility] Interpretation and review of laboratory results Normal [facility] N. gonorrhoeae DNA Probe+sig amp Ql (Unsp spec) Not detected Not Detected [facility] C. trachomatis rRNA SUMIT+probe Ql (Unsp spec) Not detected Normal Not Detected [facility] Comment on above: Performed By: #### 3 6903-3 #### JACQUELYN LOPEZ ([id number]) [facility] ([facility]) [address] [place] [address] N. gonorrhoeae DNA Probe+sig amp Ql (Unsp spec) Not detected Normal Not Detected [facility] Comment on above: Performed By: #### 3 6903-3 #### JACQUELYN LOPEZ ([id number]) [facility] ([facility]) [address] [place] [address] Choriogonadotropin.beta subu niton 04-18-2024 HCG.beta subunit Qn 2171 m[IU]/mL High <5 [facility] Comment on above: Order Comment: Total HCG measurement is performed using the [place] Nonabox Access Immunoassay which detects intact HCG and free beta HCG subunit. This test is not indicated for use as a tumor marker. HCG testing is performed using a different test methodology at [facility] than other [facility]. Direct result comparison should only [...] By: #### 2 1198-7 #### JACQUELYN LOPEZ ([id number]) [facility] ([facility]) [address] [place] [address] HCG ( test) IA.rapi d Ql (U)Ordered By: Lemuel Shetty on 04-18-2024 HCG ( test) Ql (U) Positive Abnormal NEGATIVE [facility] Interpretation and review of laboratory results Abnormal [facility] HCG ( test) IA.rapi d Ql (U)on 04-18-2024 HCG ( test) Ql (U) Positive Abnormal NEGATIVE [facility] Comment on above: Performed By: #### 8 0384-1 #### JACQUELYN LPOEZ ([id number]) [facility] ([facility]) [address] [place] [address] HCG.beta subunit Qnon 2023 Interpretation and review of laboratory results Abnormal [facility] Total HCG measuremen t is performed using the [place] Access Immunoassay which detects intact HCG and free beta HCG subunit. This test is not indicated for use as a tumor marker. HCG testing is performed using a different test methodology at [facility] than other [facility]. Direct result comparison should only be made within the same method. [facility] No Panel Informationon 04-18 Interpretation and review of laboratory results Abnormal [facility] Urinalysis complete W Reflex Culture panel (U)on 04-18-2024 Appearance (U) Turbid Abnormal Clear [facility] Bilirubin (U) [Mass/Vol] Negative NEGATIVE [facility] Color (U) Yellow Light-Yellow , Yellow, Dark-Yellow [facility] Glucose Auto test strip (U) [Mass/Vol] OVER (4+) Abnormal Normal mg/dL [facility] Ketones (U) [Mass/Vol] 100 (3+) Abnormal NEGATIVE mg/dL [facility] Leukocyte esterase Auto test strip Ql (U) 500 Zonia/ L Abnormal NEGATIVE [facility] Nitrite Auto test strip Ql (U) 2+ Abnormal NEGATIVE [facility] pH (U) 6 [pH] 5.0, 5.5, 6.0, 6.5, 7.0, 7.5, 8.0 [facility] Protein (U) [Mass/Vol] 30 (1+) Abnormal NEGATIVE, 10 (TRACE), 20 (TRACE) mg/dL [facility] RBC (U) [#/Vol] 0.03 (TRACE) Abnormal NEGATIVE [facility] Specific gravity (U) [Rel density] 1.048 Abnormal 1.005 - 1.035 [facility] Urobilinogen (U) [Mass/Vol] 2 (1+) Abnormal Normal mg/dL [facility] Comment on above: Due to [...] is greater than the clinically reportable range. [facility] Appearance (U) Turbid Normal Clear [facility] Comment on above: Order Comment: OVER is reported when the result is greater than the clinically reportable range. Performed By: #### 5 8077-9 #### JACQUELYN LOPEZ ([id number]) [facility] ([facility]) [address] [place] [address] Bilirubin (U) [Mass/Vol] Negative Normal NEGATIVE [facility] Comment on above: Order Comment: OVER is reported when the result is greater than the clinically reportable range. Performed By: #### 5 8077-9 #### JACQUELYN LOPEZ ([id number]) [facility] ([facility]) [address] [place] [address] Color (U) Yellow Normal Light-Yellow , Yellow, Dark-Yellow [facility] Comment on above: Order Comment: OVER is reported when the result is greater than the clinically reportable range. Performed By: #### 5 8077-9 #### JACQUELYN LOPEZ ([id number]) [facility] ([facility]) [address] [place] [address] Glucose Auto test strip (U) [Mass/Vol] OVER (4+) Abnormal Normal [facility] Comment on above: Order Comment: OVER is reported when the result is greater than the clinically reportable range. Performed By: #### 5 8077-9 #### JACQUELYN LOPEZ ([id number]) [facility] ([facility]) [address] [place] [address] Ketones (U) [Mass/Vol] 100 (3+) Abnormal NEGATIVE [facility] Comment on above: Order Comment: OVER is reported when the result is greater than the clinically reportable range. Performed By: #### 5 8077-9 #### JACQUELYN LOPEZ ([id number]) [facility] ([facility]) [address] [place], [place] [address] Leukocyte esterase Auto test strip Ql (U) 500 Zonia/???L Abnormal NEGATIVE [facility] Comment on above: Order Comment: OVER is reported when the result is greater than the clinically reportable range. Performed By: #### 5 8077-9 #### JACQUELYN LOPEZ ([id number]) [facility] ([facility]) [address] [place], [place] [address] Nitrite Auto test strip Ql (U) 2+ Abnormal NEGATIVE [facility] Comment on above: Order Comment: OVER is reported when the result is greater than the clinically reportable range. Performed By: #### 5 8077-9 #### JACQUELYN LOPEZ ([id number]) [facility] ([facility]) [address] [place] [address] pH (U) 6.0 [pH] Normal 5.0, 5.5, 6.0, 6.5, 7.0, 7.5, 8.0 [facility] Comment on above: Order Comment: OVER is reported when the result is greater than the clinically reportable range. Performed By: #### 5 8077-9 #### JACQUELYN LOPEZ ([id number]) [facility] ([facility]) [address] [place] [address] Protein (U) [Mass/Vol] 30 (1+) Abnormal NEGATIVE, 10 (TRACE), 20 (TRACE) [facility] Comment on above: Order Comment: OVER is reported when the result is greater than the clinically reportable range. Performed By: #### 5 8077-9 #### JACQUELYN LOPEZ ([id number]) [facility] ([facility]) [address] [place] [address] RBC (U) [#/Vol] 0.03 (TRACE) Abnormal NEGATIVE [facility] Comment on above: Order Comment: OVER is reported when the result is greater than the clinically reportable range. Performed By: #### 5 8077-9 #### JACQUELYN LOPEZ ([id number]) [facility] ([facility]) [address] [place] [address] Specific gravity (U) [Rel density] 1.048 Normal 1.005-1.035 [facility] Comment on above: Order Comment: OVER is reported when the result is greater than the clinically reportable range. Performed By: #### 5 8077-9 #### JACQUELYN LOPEZ ([id number]) [facility] ([facility]) [address] [place] [address] Urobilinogen (U) [Mass/Vol] 2 (1+) Abnormal Normal [facility] Comment on above: Order [...] By: #### 5 8077-9 #### JACQUELYN LOPEZ ([id number]) [facility] ([facility]) [address] [place] [address] Urinalysis microscopic panel Auto Ql (U)on 04-18-2024 Bacteria Auto (Urine sed) [#/Area] 4+ Abnormal NONE SEEN /HPF [facility] Epithelial cells.squamous Auto (Urine sed) [#/Area] 10-25 (FEW) Reference range not established. /HPF [facility] Mucus Auto (Urine sed) [#/Area] FEW Reference range not established. /LPF [facility] RBC Auto (Urine sed) [#/Area] >20 Abnormal NONE, 1-2, 3-5 /HPF [facility] WBC Auto (Urine sed) [#/Area] >50 Abnormal 1-5, NONE /HPF [facility] Bacteria Auto (Urine sed) [#/Area] 4+ /HPF Abnormal NONE SEEN [facility] Comment on above: Performed By: #### 5 3315-8 #### JACQUELYN LOPEZ ([id number]) [facility] ([facility]) [address] [place] [address] Epithelial cells.squamous Auto (Urine sed) [#/Area] 10-25 (FEW) Normal Reference range not established. [facility] Comment on above: Performed By: #### 5 3315-8 #### JACQUELYN LOPEZ ([id number]) [facility] ([facility]) [facility] [place] [address] Mucus Auto (Urine sed) [#/Area] FEW Normal Reference range not established. [facility] Comment on above: Performed By: #### 5 3315-8 #### JACQUELYN LOPEZ ([id number]) [facility] ([facility]) [address] [place] [address] RBC Auto (Urine sed) [#/Area] >20 Abnormal NONE, 1-2, 3-5 [facility] Comment on above: Performed By: #### 5 3315-8 #### JACQUELYN LOPEZ ([id number]) [facility] ([facility]) [facility] [place] [address] WBC Auto (Urine sed) [#/Area] >50 Abnormal 1-5, NONE [facility] Comment on above: Performed By: #### 5 3315-8 #### VALLADARES JOHN ([id number]) [facility] ([facility]) [address] [place] [address] hCG, quantitative, on 04-18-2024 HCG.beta subunit Qn 2171 m[IU]/mL [facility] Comment on above: Low-level positive H [...] # 0.01 x10EE3/UL Normal 0.00 - 0.10 [facility] Comment on above: Performed By: #### 2 [address] ####[place] [id number] Basophils/100 WBC (Bld) 0.3 % Normal 0.0 - 2.0 [facility] Comment on above: Performed By: #### 2 [address]405 ####[address] [address] CBC + DIFF Normal [facility] Comment on above: Result Comment: CBC- COMPLETE BLOOD COUNT Performed By: #### 2 61165 ####[facility],[address] [place] [address] EO # 0.11 x10EE3/UL Normal 0.00 - 0.50 [facility] Comment on above: Performed By: #### 2 42116 ####[address] [address] Eosinophils/100 WBC (Bld) 2.4 % Normal 0.0 - 7.0 [facility] Comment on above: Performed By: #### 2 75964 ####[address],[place] [address] Erythrocyte distribution width (RBC) [Ratio] 12.7 % Normal 12.0 - 15.6 [facility] Comment on above: Performed By: #### 2 97847 ####[facility],[address] [place] [address] Hematocrit (Bld) [Volume fraction] 44.1 % Normal 34.0 - 46.0 [facility] Comment on above: Performed By: #### 2 56237 ####[facility],[address] [place] [address] Hemoglobin (Bld) [Mass/Vol] 15.2 g/dL Normal 12.0 - 16.0 [facility] Comment on above: Performed By: #### 2 52990 ####[facility],[address] [place], [place] [address] Lymph # 1.74 x10EE3/UL Normal 0.80 - 2.80 [facility] Comment on above: Performed By: #### 2 59528 ####[facility],[address] [place] [address] Lymphocytes/100 WBC (Bld) 38.8 % Normal 20.0 - 45.0 [facility] Comment on above: Performed By: #### 2 03728 ####[facility],[address] [place] [address] MANUAL DIFF N/A Normal [facility] Comment on above: Performed By: #### 2 22721 ####[facility],[address] [place] [address] MCH (RBC) [Entitic mass] 29 pg Normal 27 - 33 [facility] Comment on above: Performed By: #### 2 43513 ####[facility],[address] [place] [address] MCHC 34 X10 3 Normal 32 - 36 [facility] Comment on above: Performed By: #### 2 94783 ####[facility],[address] [place] [address] 25099 MCV (RBC) [Entitic vol] 84 fL Normal 80 - 99 [facility] Comment on above: Performed By: #### 2 08374 ####[facility],[address] [place] [address] 76936 Gordon # 0.48 x10EE3/UL Normal 0.20 - 1.00 [facility] Comment on above: Performed By: #### 2 17427 ####[facility],[address] [place] [address] 65422 MONOS % 10.7 % High 0.0 - 10.0 [facility] Comment on above: Performed By: #### 2 49875 ####[facility],[address] [place] [address] 97889 Morphology Jorge (Bld) [Interp] N/A Normal [facility] Comment on above: Performed By: #### 2 95421 ####[facility],[address] [place], [place] [address] Neut # 2.14 x10EE3/UL Normal 1.50 - 7.10 [facility] Comment on above: Performed By: #### 2 19561 ####[facility],[address] [place] [address] 20468 Neutrophils/100 WBC (Bld) 47.9 % Normal 46.0 - 76.0 [facility] Comment on above: Performed By: #### 2 64213 ####[facility],[address] [place] [address] 93845 PLATELET 283 x10EE3/UL Normal 150 - 450 [facility] Comment on above: Performed By: #### 2 93555 ####[facility],[address] [place] [address] 52056 Platelet mean volume (Bld) [Entitic vol] 7.1 fL Normal 6.6 - 10.5 [facility] Comment on above: Result Comment: AUTO MATED DIFFERENTIAL Performed By: #### 2 89434 ####[facility],[address] [place] [address] 49714 RBC 5.24 x 10EE6/UL Normal 4.10 - 5.30 [facility] Comment on above: Performed By: #### 2 56428 ####[facility],[address] [place] [address] 72340 WBC 4.5 x 10EE3/UL Normal 4.5 - 10.8 [facility] Comment on above: Performed By: #### 2 53965 ####[facility],[address] [place] [address] 72506 CMP with eGFRon 04-15-2024 AGE 29 years Normal [facility] Comment on above: Performed By: #### 2 75697 #### [facility],[address] [place] [address] 39101 Albumin [Mass/Vol] 3.7 g/dL Normal 3.4 - 5.0 [facility] Comment on above: Performed By: #### 2 09367 #### [facility],[address] [place] [address] 37622 Albumin/Globulin [Mass ratio] 0.9 {ratio} Normal 0.9 - 1.6 [facility] Comment on above: Performed By: #### 2 82410 #### [facility],[address] [place] [address] 51326 ALK PHOS 89 U/L Normal 46 - 116 [facility] Comment on above: Performed By: #### 2 47805 #### [facility],[address] [place] [address] 35939 ALT [Catalytic activity/Vol] 28 U/L Normal 16 - 63 [facility] Comment on above: Performed By: #### 2 98381 #### [facility],[address] [place] [address] 75057 Anion gap [Moles/Vol] 20 mmol/L Normal 10 - 20 [facility] Comment on above: Performed By: #### 2 48470 #### [facility],[address] [place] [address] 84099 AST [Catalytic activity/Vol] 12 U/L Low 13 - 39 [facility] Comment on above: Performed By: #### 2 31600 #### [facility],[address] [place] [address] 57419 B/C RATIO 19 ratio Normal 0 - 30 [facility] Comment on above: Performed By: #### 2 91997 #### [facility],[address] [place] [address] 86613 Bilirubin [Mass/Vol] 0.7 mg/dL Normal 0.2 - 1.0 [facility] Comment on above: Performed By: #### 2 82352 #### [facility],[address] [place] [address] 97031 Calcium [Mass/Vol] 8.9 mg/dL Normal 8.5 - 10.1 [facility] Comment on above: Performed By: #### 2 96841 #### [facility],[address] [place] [address] 03385 Chloride [Moles/Vol] 101 mmol/L Normal 98 - 107 [facility] Comment on above: Performed By: #### 2 05742 #### [facility],[address] [place] [address] 47558 CMP with eGFR Normal [facility] Comment on above: Result Comment: COMP REHENSIVE METABOLIC PANEL Performed By: #### 2 67145 #### [facility],[address] [place] [address] 58042 CO2 [Moles/Vol] 20.5 mmol/L Low 21.0 - 32.0 [facility] Comment on above: Performed By: #### 2 24960 #### [facility],[address] [place] [address] 35155 Creatinine [Mass/Vol] 0.64 mg/dL Normal 0.55 - 1.02 [facility] Comment on above: Performed By: #### 2 41036 #### [facility],[address] [place] [address] 38713 GFR/1.73 sq M.predicted among non-blacks MDRD (S/P/Bld) [Vol rate/Area] mL/min/{1.73_m2} Normal 60 - 999 [facility] Comment on above: Performed By: #### 2 39662 #### [facility],[address] [place] [address] 27337 Result Comment: ACCO RDING TO THE NATIONAL KIDNEY DISEASE EDUCATION PROGRAM(NKDE), A NORMAL eGFR IS A VALUE GREATER THAN OR EQUAL TO 60 ML/MIN/1.73 SQ METERS. CHRONIC KIDNEY DISEASE: <60mL/MIN/1.73 SQ METERS KIDNEY FAILURE: <15mL/MIN/1.73 SQ METERS THIS TEST SHOULD ONLY BE USED FOR PATIENTS 18 YEARS OF AGE AND OLDER. Globulin (S) [Mass/Vol] 4.1 g/dL High 1.5 - 3.8 [facility] Comment on above: Performed By: #### 2 02836 #### [facility],[address] [place] [address] 79137 Glucose [Mass/Vol] 235 mg/dL High 74 - 106 [facility] Comment on above: Performed By: #### 2 52882 #### [facility],[address] [place] [address] 69200 Potassium [Moles/Vol] 3.4 mmol/L Low 3.5 - 5.1 [facility] Comment on above: Performed By: #### 2 72086 #### [facility],[address] [place] [address] 59844 Protein [Mass/Vol] 7.8 g/dL Normal 6.4 - 8.2 [facility] Comment on above: Performed By: #### 2 46389 #### [facility],[address] [place] [address] 32751 Sodium [Moles/Vol] 138 mmol/L Normal 136 - 145 [facility] Comment on above: Performed By: #### 2 57218 #### [facility],[address] [place] [address] 62190 Urea nitrogen [Mass/Vol] 12 mg/dL Normal 7 - 18 [facility] Comment on above: Performed By: #### 2 29041 #### [facility],[address] [place] [address] 47623 ED MED ADMINISTRATION DETAIL on 04-15-2024 ED MED ADMINISTRATION DETAIL Bond Broker Medication Administration Record [address] [address] [id number] 04/14/2024 Patient: MELISSA KAUR Sex: Female : [...] Leona Roberts R.N. 1 of 1 Normal [facility] ED NURSES CLINICAL NOTEon ED NURSES CLINICAL NOTE Nurse Narrative Nurse Clinical Narrative [address] [address] [id number] 04/14/2024 Patient: MELISSA KAUR Sex: Female : [...] Roberts R.N. 02:56 04/15/24. Patient transported with feed research technician. (to [facility]). -- 03:06 04/15/24 FABRIZIO Roberts R.N.Correction -- 03:04/15/24 FABRIZIO Roberts R.N. 02:56 04/15/24. Patient transported by stretcher with feed research technician. (to [facility]). -- 03:07 04/15/24 FABRIZIO Roberts R.N. 03:01 04/15/24. Patient transported to radiology. -- 03:04/15 (more content not included)... Normal [facility] ED ORDER SHEET (CPOE ONLY)on 04-15-2024 ED ORDER SHEET (CPOE ONLY) Order Sheet Order Sheet [address] [place] [address] [id number] 04/14/2024 Patient: MELISSA KAUR Sex: Female : [...] on 04/17/2024. Viola Hansen R.N. results to [facility] DIAGNOSTIC STUDY ORDERS Order Description Priority [...] (04/15/2024 09:07 EST)] 2 of 2 Normal [facility] ED PHYSICIAN CLINICAL REPORT on 04-15-2024 ED PHYSICIAN CLINICAL REPORT Narrative Physician Clinical Narrative [address] [address] [id number] 04/14/2024 Patient: MELISSA KAUR Sex: Female : [...] 1.50 - 7.10 Final EST 04/15/2024 01:39 Gordon # 0. (more content not included)... Normal [facility] ED SUPER BILLon 04-15-2024 ED SUPER BILL [facility] [place] [address] [place] [address] [phone] 04/14/2024 Patient: MELISSA KAUR Sex: Female : 1995 Age: 29y Item Facility Professional Category Description Code Code Quantity Fee Total Drugs Normal Saline 815942 1 $0.00 $0.00 1000cc (110818) Nurse/E/M EMERGENCY 601771 1 $0.00 $0.00 DEPARTMENT VISIT HIGH/URGENT SEVERITY (97895-45) Nurse/IV/IM/Infusions Hydration initial 227850 1 $0.00 $0.00 (19913) Grand Total $0.00 Providers Milly Ji D.O. Chief Complaint ABDOMINAL PAIN. 1 [facility] 2 [facility] First trimester ; positive test in emergency department. Ultrasound was performed but could not determine the location of the . ICD-10 Codes Z34.91: Encounter for supervision of normal , unspecified, first trimester Z3A.00: Weeks of gestation of not specified 2 of 2 Normal [facility] ED VISIT SUMMARYon ED VISIT SUMMARY Visit Overview Visit Overview [address] [address] [id number] 04/14/2024 Patient: MELISSA KAUR Sex: Female : [...] hcg as outpatient on 04/17/2024. results to [facility] Urinalysis US OB<14WK Single Gestation CLINICAL IMPRESSION FIRST TRIMESTER ; POSITIVE TEST IN EMERGENCY DEPARTMENT. ULTRASOUND WAS PERFORMED BUT COULD NOT DETERMINE THE LOCATION OF THE 3 of 3 Normal [facility] ED VITALS FLOW SHEETon 04-15 ED VITALS FLOW SHEET Vitals Vital Sign Flow Sheet [address] [place] [address] [id number] 04/14/2024 Patient: MELISSA KAUR Sex: Female : [...] 98.5 F 6 2 of 2 Normal [facility] PREG SERUM QUANTon HCG QUANTITATIVE 433 mIU/mL High 0 - 6 [facility] Comment on above: Result Comment: Refe [...] 3RD TRIMESTER 1000-50,000 Performed By: #### 2 16860 ####[facility],[address] [place], [place] [address] SERUM QUALon 04-15 EXTERNAL QC DONE? YES Normal [facility] Comment on above: Performed By: #### 2 79734 #### [facility],[address] [place] [address] INTERNAL QC PASS Normal [facility] Comment on above: Performed By: #### 2 85158 #### [facility],[address] [place] [address] SER Positive Normal NEGATIVE [facility] Comment on above: Performed By: #### 2 65067 #### [facility],[address] [place], [place] [address] URINALYSISon 04-15-2024 Amorphous NONE Normal [facility] Comment on above: Performed By: #### 2 35412 #### [facility],[address] [place] [address] Bacteria TRACE Normal [facility] Comment on above: Performed By: #### 2 25500 #### [facility],[address] [place], [place] [address] Bilirubin Ql (U) Negative Normal NORMAL: NEGATIVE [facility] Comment on above: Performed By: #### 2 08672 #### [facility],[address] [place] [address] Casts NONE Normal [facility] Comment on above: Performed By: #### 2 00340 #### [facility],[address] [place], [place] [address] Clarity (U) clear Normal NORMAL: CLEAR [facility] Comment on above: Performed By: #### 2 22712 #### [facility],[address] [place] [address] Color (U) yellow Normal NORMAL: YELLOW [facility] Comment on above: Performed By: #### 2 86940 #### [facility],[address] [place] [address] 29787 Crystals LM Nom (Urine sed) NONE Normal [facility] Comment on above: Performed By: #### 2 24317 #### [facility],[address] [place] [address] 44634 Epi Cells MODERATE Normal [facility] Comment on above: Performed By: #### 2 18492 #### [facility],[address] [place], [place] [address] Glucose Ql (U) 1000 Abnormal NORMAL: NORMAL [facility] Comment on above: Performed By: #### 2 02305 #### [facility],[address] [place] [address] Hemoglobin Ql (U) Negative Normal NORMAL: NEGATIVE [facility] Comment on above: Performed By: #### 2 14650 #### [facility],[address] [place] [address] 12584 Ketone 150 Abnormal NORMAL: NEGATIVE [facility] Comment on above: Performed By: #### 2 90120 #### [facility],[address] [place] [address] 70781 Leukocytes 25 Abnormal NORMAL: NEGATIVE [facility] Comment on above: Performed By: #### 2 96182 #### [facility],[address] [place] [address] 38019 Mucous NONE Normal [facility] Comment on above: Performed By: #### 2 14883 #### [facility],[address] [place] [address] 81389 Nitrite Ql (U) Negative Normal NORMAL: NEGATIVE [facility] Comment on above: Performed By: #### 2 34238 #### [facility],[address] [place], [place] [address] pH (U) 5 [pH] Normal NORMAL: 5.0-8.0 [facility] Comment on above: Performed By: #### 2 58871 #### [facility],[address] [place] [address] Protein Ql (U) 15 Abnormal NORMAL: NEGATIVE [facility] Comment on above: Performed By: #### 2 92281 #### [facility],[address] [place] [address] Rbc 0-5 Normal 0-3/hpf [facility] Comment on above: Performed By: #### 2 53500 #### [facility],[address] [place] [address] Sp [place] 1.025 Normal NORMAL: 1.010-1.030 [facility] Comment on above: Performed By: #### 2 22233 #### [facility],[address] [place] [address] Specimen Type R Normal [facility] Comment on above: Performed By: #### 2 71297 #### [facility],[address] [place] [address] Urinalysis dipstick W Reflex Microscopic panel (U) SEE BELOW Normal [facility] Comment on above: Result Comment: MICR OSCOPIC Performed By: #### 2 02912 #### [facility],[address] [place] [address] Urobilinog NORM Normal NORMAL: NORMAL [facility] Comment on above: Performed By: #### 2 97987 #### [facility],[address] [place] [address] Wbc 1-5 Normal 0-5/hpf [facility] Comment on above: Performed By: #### 2 99428 #### [facility],[address] [place] [address] Yeast NONE Normal [facility] Comment on above: Performed By: #### 2 41108 #### [facility],[address] [place] [address] 28422 US OB ENDO VAGINALon 024 US OB ENDO VAGINAL [place] [address] Patient: MELISSA KAUR Phone#: : 1995 Age: 29 Gender: F Pt. Type: ER Account: [id number] Location: 052 Ordering: MILLY JI Exam Date: 04/15/2024/2:54 Family Phys: JAMARI BYRNE Charge Code: [id number] Physician: [place] Order #: [id number] Dose#: PROCEDURE: OB INITIAL <14 WEEKS ULTRASOUND, [...] Nobles MD on 04/15/2024 at 9:02 Normal [facility] US OB INITIAL< 14 WEEKS; 1st GESTATIONon 04-15-2024 US OB INITIAL< 14 WEEKS; 1st GEST[address] [address] Patient: MELISSA KAUR Phone#: : 1995 Age: 29 Gender: F Pt. Type: ER Account: [id number] Location: 052 Ordering: MILLY JI Exam Date: 04/15/2024/2:54 Family Phys: JAMARI BYRNE Charge Code: [id number] Physician: [place] Order #: [id number] Dose#: PROCEDURE: OB INITIAL <14 WEEKS ULTRASOUND, [...] Nobles MD on 04/15/2024 at 9:02 Normal [facility] CNPNon 04-14-2024 CNPN Normal [facility] Basic metabolic 2000 panelon 12-16-2023 Anion gap [Moles/Vol] 14 mmol/L Normal 10-[address] [facility] Comment on above: Performed By: #### 2 4321-2 #### JACQUELYN LOPEZ ([id number]) [facility] ([facility]) [facility] [place] [address] Calcium [Mass/Vol] 9.3 mg/dL Normal 8.6-10.3 [facility] Comment on above: Performed By: #### 2 4321-2 #### JACQUELYN LOPEZ ([id number]) [facility] ([facility]) [facility] [place] [address] Chloride [Moles/Vol] 101 mmol/L Normal 98-107 [facility] Comment on above: Performed By: #### 2 4321-2 #### JACQUELYN LOPEZ ([id number]) [facility] ([facility]) [address] [place] [address] 01352 CO2 [Moles/Vol] 26 mmol/L Normal 21-32 [facility] Comment on above: Performed By: #### 2 4321-2 #### JACQUELYN LOPEZ ([id number]) [facility] ([facility]) [address] [place] [address] 97784 Creatinine [Mass/Vol] 0.54 mg/dL Normal 0.50-1.[address] [facility] Comment on above: Performed By: #### 2 4321-2 #### JACQUELYN LOPEZ ([id number]) [facility] ([facility]) [address] [place] [address] 95275 GFR/1.73 sq M.predicted MDRD (S/P/Bld) [Vol rate/Area] mL/min/{1.73_m2} Normal >60 [facility] Comment on above: Result Comment: Calc ulations of estimated GFR are performed using the 2020 CKD-EPI Study Refit equation without the race variable for the IDMS-Traceable creatinine methods. https://jasn.asnjournals.org/content/early//ASN.942710 0925 Performed By: #### 2 4321-2 #### JACQUELYN LOPEZ ([id number]) [facility] ([facility]) [address] [place] [address] 27611 Glucose [Mass/Vol] 207 mg/dL High 74-99 [facility] Comment on above: Performed By: #### 2 4321-2 #### JACQUELYN LOPEZ ([id number]) [facility] ([facility]) [address] [place] [address] 10211 Potassium [Moles/Vol] 3.7 mmol/L Normal 3.5-5.[address] [facility] Comment on above: Performed By: #### 2 4321-2 #### JACQUELYN LOPEZ ([id number]) [facility] ([facility]) [address] [place] [address] 72636 Sodium [Moles/Vol] 137 mmol/L Normal 136-145 [facility] Comment on above: Performed By: #### 2 4321-2 #### JACQUELYN LOPEZ ([id number]) [facility] ([facility]) [address] [place] [address] 30480 Urea nitrogen [Mass/Vol] 7 mg/dL Normal 6-23 [facility] Comment on above: Performed By: #### 2 4321-2 #### JACQUELYN LOPEZ ([id number]) [facility] ([facility]) [address] [place] [address] 85304 HbA1c (Bld) [Mass fraction]o n 12-16-2023 Average glucose Estimated from glycated hemoglobin (Bld) [Mass/Vol] 246 mg/dL Normal Not Established [facility] Comment on above: Order Comment: Diagn osis of Diabetes-Adults Non-Diabetic: < or = 5.6% Increased risk for developing diabetes: 5.7-6.4% Diagnostic of diabetes: > or = 6.5% Performed By: #### 4 548-4 #### JACQUELYN LOPEZ ([id number]) [facility] ([facility]) [address] [place] [address] 54630 Hemoglobin A1c/Hemoglobin.to bg 12-16-2023 HbA1c (Bld) [Mass fraction] 10.2 % High see below [facility] Comment on above: Order Comment: Diagn osis of Diabetes-Adults Non-Diabetic: < or = 5.6% Increased risk for developing diabetes: 5.7-6.4% Diagnostic of diabetes: > or = 6.5% Performed By: #### 4 548-4 #### JACQUELYN LOPEZ ([id number]) [facility] ([facility]) [address] [place] [address] 89922 Basic metabolic 2000 panelon 09-15-2023 Anion gap [Moles/Vol] 13 mmol/L Normal 10-[address] [facility] Comment on above: Performed By: #### 2 4321-2 #### JACQUELYN LOPEZ ([id number]) [facility] ([facility]) [address] [place] [address] Calcium [Mass/Vol] 9.9 mg/dL Normal 8.6-10.3 [facility] Comment on above: Performed By: #### 2 4321-2 #### JACQUELYN LOPEZ ([id number]) [facility] ([facility]) [facility] [place] [address] Chloride [Moles/Vol] 99 mmol/L Normal 98-107 [facility] Comment on above: Performed By: #### 2 4321-2 #### JACQUELYN LOPEZ ([id number]) [facility] ([facility]) [address] [place] [address] 81655 CO2 [Moles/Vol] 28 mmol/L Normal 21-32 [facility] Comment on above: Performed By: #### 2 4321-2 #### JACQUELYN LOPEZ ([id number]) [facility] ([facility]) [address] [place] [address] 70979 Creatinine [Mass/Vol] 0.57 mg/dL Normal 0.50-1.[address] [facility] Comment on above: Performed By: #### 2 4321-2 #### JACQUELYN LOPEZ ([id number]) [facility] ([facility]) [address] [place] [address] 71713 GFR/1.73 sq M.predicted MDRD (S/P/Bld) [Vol rate/Area] mL/min/{1.73_m2} Normal >60 [facility] Comment on above: Result Comment: Calc ulations of estimated GFR are performed using the 2020 CKD-EPI Study Refit equation without the race variable for the IDMS-Traceable creatinine methods. https://jasn.asnjournals.org/content/early//ASN.942079 1487 Performed By: #### 2 4321-2 #### JACQUELYN LOPEZ ([id number]) [facility] ([facility]) [facility] [place] [address] Glucose [Mass/Vol] 208 mg/dL High 74-99 [facility] Comment on above: Performed By: #### 2 4321-2 #### JACQUELYN LOPEZ ([id number]) [facility] ([facility]) [address] [place] [address] Potassium [Moles/Vol] 4.0 mmol/L Normal 3.5-5.[address] [facility] Comment on above: Performed By: #### 2 4321-2 #### JACQUELYN LOPEZ ([id number]) [facility] ([facility]) [address] [place] [address] Sodium [Moles/Vol] 136 mmol/L Normal 136-145 [facility] Comment on above: Performed By: #### 2 4321-2 #### JACQUELYN LOPEZ ([id number]) [facility] ([facility]) [address] [place] [address] Urea nitrogen [Mass/Vol] 10 mg/dL Normal 6-23 [facility] [facility] Comment on above: Performed By: #### 2 4321-2 #### JACQUELYN LOPEZ ([id number]) [facility] ([facility]) [address] [place] [address] HbA1c (Bld) [Mass fraction]o n 09-15-2023 Average glucose Estimated from glycated hemoglobin (Bld) [Mass/Vol] 226 mg/dL Normal Not Established [facility] Comment on above: Order Comment: Diagn osis of Diabetes-Adults Non-Diabetic: < or = 5.6% Increased risk for developing diabetes: 5.7-6.4% Diagnostic of diabetes: > or = 6.5% Monitoring of Diabetes Age (y)....................... Therapeutic Goal (%) Adults: >18.........................<7.0 Pediatrics: 13-18...................<7.5 Pediatrics: 7-12....................<8.0 Pediatrics: 0-6..................... 7.5-8.5 [place] [employer]. Diabetes Care 33(S1), Jun 2009 Performed By: #### 4 [id number] #### JACQUELYN LOPEZ ([id number]) [facility] ([facility]) [address] [place] [address] Hemoglobin A1c/Hemoglobin.to bg 09-15-2023 HbA1c (Bld) [Mass fraction] 9.5 % High see below [facility] Comment on above: Order Comment: Diagn osis of Diabetes-Adults Non-Diabetic: < or = 5.6% Increased risk for developing diabetes: 5.7-6.4% Diagnostic of diabetes: > or = 6.5% Monitoring of Diabetes Age (y)....................... Therapeutic Goal (%) Adults: >18.........................<7.0 Pediatrics: 13-18...................<7.5 Pediatrics: 7-12....................<8.0 Pediatrics: 0-6..................... 7.5-8.5 [place] [employer]. Diabetes Care 33(S1), Jun 2009 Performed By: #### 4 [id number] #### JACQUELYN LOPEZ ([id number]) [facility] ([facility]) [address] [place] [address] BASIC METABOLIC PANELon - Anion gap [Moles/Vol] 13 mmol/L Normal 10 - 20 [facility] Comment on above: Performed By: #### B MP #### [address] [address] Calcium [Mass/Vol] 9.2 mg/dL Normal 8.6 - 10.3 [facility] Comment on above: Performed By: #### B MP #### [address] [address] Chloride [Moles/Vol] 101 mmol/L Normal 98 - 107 [facility] Comment on above: Performed By: #### B MP #### [address] [address] Creatinine [Mass/Vol] 0.55 mg/dL Normal 0.50 - 1.05 [facility] Comment on above: Performed By: #### B MP #### [address] [address] eGFR FEMALE >90 Normal >90 [facility] Comment on above: Result Comment: CALC ULATIONS OF ESTIMATED GFR ARE PERFORMED USING THE 2020 CKD-EPI STUDY REFIT EQUATION WITHOUT THE RACE VARIABLE FOR THE IDMS-TRACEABLE CREATININE METHODS. https://jasn.asnjournals.org/content/early/ASN.389305 2614 Performed By: #### B MP #### [address] [address] Glucose [Mass/Vol] 296 mg/dL High 74 - 99 [facility] Comment on above: Performed By: #### B MP #### [address] [address] HCO3 (Bld) [Moles/Vol] 26 mmol/L Normal 21 - 32 [facility] Comment on above: Performed By: #### B MP #### [address] [address] Potassium [Moles/Vol] 3.8 mmol/L Normal 3.5 - 5.3 [facility] Comment on above: Performed By: #### B MP #### [address] [address] Sodium [Moles/Vol] 136 mmol/L Normal 136 - 145 [facility] Comment on above: Performed By: #### B MP #### [address] [address] Urea nitrogen [Mass/Vol] 10 mg/dL Normal 6 - 23 [facility] Comment on above: Performed By: #### B MP #### [address] [address] Lab Specimen Source Normal [facility] Comment on above: Performed By: #### B MP #### [address] [address] Performed By: #### H BA1E #### [address] [address] HEMOGLOBIN A1Con 12-03-2022 Glucose [Mass/Vol] 209 mg/dL Normal [facility] Comment on above: Performed By: #### H BA1E #### [address] [address] HbA1c (Bld) [Mass fraction] 8.9 % Abnormal [facility] Comment on above: Result Comment: Diag nosis of Diabetes-Adults Non-Diabetic: < or = 5.6% Increased risk for developing diabetes: 5.7-6.4% Diagnostic of diabetes: > or = 6.5% . Monitoring of Diabetes Age (y) Therapeutic Goal (%) Adults: >18 <7.0 Pediatrics: 13-18 <7.5 7-12 <8.0 0- 6 7.5-8.5 [place] [employer]. Diabetes Care 33(S1), Jun 2009. Performed By: #### H BA1E #### [address] [address] HCG ( test) Ql (U)o n 08-17-2022 Internal Control Pass [facility] Interpretation and review of laboratory results Normal [facility] POC , Urineon 08-17 HCG ( test) Ql (U) Negative Negative [facility] Hemoglobin A1Con 05-24-2022 Glucose [Mass/Vol] 246 mg/dL [facility] Work Phone: HbA1c (Bld) [Mass fraction] 10.2 % Abnormal [facility] Work Phone: Comment on above: Diagnosis of Diabete s-Adults Non-Diabetic: < or = 5.6% Increased risk for developing diabetes: 5.7-6.4% Diagnostic of diabetes: > or = 6.5%. Monitoring of Diabetes Age (y) Therapeutic Goal (%) Adults: >18 <7.0 Pediatrics: 13-18 <7.5 7-12 <8.0 0- 6 7.5-8.5 [place] [employer]. Diabetes Care 33(S1), Jun 2009. Laboratory - Chemistry and C hemistry - challengeon 05-24-2022 Anion gap [Moles/Vol] 14 mmol/L 10 - 20 [facility] Work Phone: Calcium [Mass/Vol] 9.8 mg/dL 8.6 - 10.3 [facility] Work Phone: Chloride [Moles/Vol] 101 mmol/L 98 - 107 [facility] Work Phone: CO2 [Moles/Vol] 24 mmol/L 21 - 32 [facility] Work Phone: Creatinine [Mass/Vol] 0.58 mg/dL See Below [facility] Work Phone: Comment on above: Reference Range: 0.5 0 - 1.05 Glucose [Mass/Vol] 263 mg/dL above high threshold 74 - 99 [facility] Work Phone: Potassium [Moles/Vol] 3.5 mmol/L 3.5 - 5.3 [facility] Work Phone: Sodium [Moles/Vol] 135 mmol/L below low threshold 136 - 145 [facility] Work Phone: Urea nitrogen [Mass/Vol] 12 mg/dL 6 - 23 [facility] Work Phone: No Panel Informationon 05-24 >90 >90 [facility] Work Phone: Comment on above: CALCULATIONS OF ASCENCION MATED GFR ARE PERFORMED USING THE 2020 CKD-EPI STUDY REFIT EQUATION WITHOUT THE RACE VARIABLE FOR THE IDMS-TRACEABLE CREATININE METHODS.https://jasn.asnjournals.org/content/early// N.0026279792 Office Visit (Family [facility] e)on 05-24-2022 Follow-up visit Diagnoses/Problems Hyperglycemia due to diabetes mellitus (250.02) (E11.65) Anxiety and depression (300.00,311) (F41.9,F32.A) Bipolar depression (296.50) (F31.9) Orders Hyperglycemia due to diabetes mellitus Start: Pioglitazone HCl - 15 MG Oral Tablet; Take 1 tablet daily Follow-up visit in 3 months Outpatient Follow-up Status: Hold For - Scheduling Requested for: [id number] Hemoglobin A1C; Status:Active; Requested for:[id number]; PMH: History of diabetes mellitus Renew: Trulicity [...] 25 MG TABS Vitals Vital Signs Recorded: 46Cvx7850 10:15AM Heart Rate94 Ejawrvrz266 Ustmwnsmz22 Axhpei946.48 cm Vmjsbv61.64 kg BMI Axvcktfyqu82.92 kg/m2 BSA Calculated1.83 Tobacco Usea) Yes PHQ-2 [...] AND affect, Normal judgment. Results/Data Basic Metabolic Hxada98Ysd1531 08:34AMRaberJamari Test NameResultFlagReference Glucose, Lzsyu222 mg/dLH74 - 99 Sodium, Jgakr020 mmol/LL136 - 145 POTASSIUM3.5 mmol/L3.5 - 5.3 Chloride, Mbasa406 mmol/L98 - 107 Bicarbonate, Serum24 mmol/L21 - 32 Anion Gap, Serum14 mmol/L10 - 20 Blood Urea Nitrogen, Serum12 mg/dL6 - 23 CREATININE0.58 mg/dLSee Below Reference (more content not included)... Normal [facility] Tobacco Screening.on 022 Adult depression screening assessment Yes [facility] Work Phone: Tobacco use status CPHS a) Yes [facility] Work Phone: Office Visit ([facility] e)on 02-22-2022 Follow-up visit Diagnoses/Problems Hyperglycemia due to diabetes mellitus (250.02) (E11.65) Anxiety and depression (300.00,311) (F41.9,F32.A) Orders Anxiety and depression Follow-up visit in 3 months Outpatient Follow-up Status: Hold For - Scheduling Requested for: [id number] Basic Metabolic Panel; Status:Active; Requested for:[id number]; Anxiety and depression, Hyperglycemia due to diabetes mellitus Hemoglobin A1C; Status:Active; Requested for:37Lag0832; Health Maintenance Renew: Albuterol Sulfate HFA 108 [...] CapsuleSocHx: Current smoker Benadryl 25 MG TABS [place] Carbonate 300 MG Oral Capsule Vitals Vital Signs Recorded: 39Qbf6830 08:55AM Heart Rate73 Gsmuhxtlydp18 Ghvilcfy284 Iuszpkhnr60 Height5 ft 2 in Tpovgw763 lb BMI Qmesvadqmn45.56 kg/m2 BSA Calculated1.82 Tobacco Usea) Yes Patient encouraged to stop using tobacco productsYes Falls Screening (Age 18+)a) No falls within the last year O2 Icihqctehh94 Physical Exam General: Alert and oriented, No [...] Vital Signs Recorded: 04Jan2022 01:47PM Heart Rate80 Nyutjwlf714 Uelbdwhmq64 Height5 ft 2 in Lsfmcb446 lb 15.70 oz BMI Ozwhfsdeij99.91 kg/m2 BSA Calculated1.78 Tobacco Usea) Yes Patient [...] Jan 04 2022 2:03PM EST (Author) Normal [facility] [employer] Tobacco Screening.on 022 Fall risk assessment a) No falls within the last year [facility] Work Phone: Tobacco use status [facility] a) Yes [facility] Work Phone: Tobacco Screening. Yes [facility] Work Phone: LMPon 12-25-2021 Last menstrual period start date 30Nup6404 [facility] and [address] [place] [address] Work Phone: [employer] - Office Visiton 12-07 [employer] [facility] - Office Visit Provider Marivel mark Patient [...] AND DRINK ONCE. Vitals Vital Signs Recorded: 48Jrc5127 08:36AM Sjqssook982 Acadbxali18 Height5 ft 2 in Bjlana140 lb 0.08 oz BMI Soordwadgw59.36 kg/m2 BSA Calculated1.77 KRN98Kec1396 Physical Exam Constitutional: Healthy-appearing in no physical distress. Head and Face: No obvious lesions. Neck: Supple with good range of motion. External genitalia revealed no lesions the vagina was well estrogenized the cervix was nonfriabl there was a thick white pbz-rcop-jkvtzvtl discharge Musculoskeletal: Good mobility of her extremities. Psychiatric: Appropriately oriented. Wet mount was negative for trichomoniasis Signatures Electronically signed by : Genoveva Sutton DO; Dec 25 2021 8:50AM EST (Author) Normal [facility] GC + Chlamydia By Amplified Detectionon 12-17-2021 C. trachomatis rRNA SUMIT+probe Ql (Unsp spec) Negative Negative [facility] and [address] Work Phone: Comment on above: The APTIMA Combo 2 a ssay is FDA-approved for Chlamydia trachomatis and Neisseria gonorrhoeae testing on female endocervical and vaginal swabs, ThinPrep liquid pap samples, male urine samples and urethral swabs. Performance characteristics for Chlamydia trachomatis and Neisseria gonorrhoeae testing on specific tlx-KFE-dqnucuzh sample types (female urine samples) have been validated by [facility]. This laboratory is certified by CLIA to perform high complexity testing. Samples from all other sites are not validated for this method. N. gonorrhoeae rRNA SUMIT+probe Ql (Unsp spec) Negative Negative [facility] and [address] [employer] Work Phone: Comment on above: SOURCE: Urine The AP KATIA Combo 2 assay is FDA-approved for Chlamydia trachomatis and Neisseria gonorrhoeae testing on female endocervical and vaginal swabs, ThinPrep liquid pap samples, male urine samples and urethral swabs. Performance characteristics for Chlamydia trachomatis and Neisseria gonorrhoeae testing on specific hjh-YHA-eznwbbyu sample types (female urine samples) have been validated by [facility]. This laboratory is certified by CLIA to perform high complexity testing. Samples from all other sites are not validated for this method. LMPon 12-17-2021 Last menstrual period start date 15Dec2021 [facility] and [address] Work Phone: [employer] - Office Visiton 12-07 [employer] - Office Visit Diagnoses/Problems Assessed Chlamydia infection (079.98) (A74.9) Screening for STD (sexually transmitted disease) (V74.5) (Z11.3) Orders GC + Chlamydia By Amplified Detection; Status:In Progress - Specimen/Data Collected,Retrospective Authorization; Done: [id number] Provider Impressions Patient is a 26-year-old here [...] AND DRINK ONCE. Vitals Vital Signs Recorded: 18Nkt0002 09:02AM Kxhkezke778 Tbhhfxpjb87 Height5 ft 2 in Lowimo645 lb 7.14 oz BMI Qofrfvbgef60.44 kg/m2 BSA Calculated1.77 HON50Dfr8684 Physical Exam Constitutional: Healthy-appearing in no physical [...] Bacteria identified Aer cx Nom (Genital specimen) [facility] [address] Work Phone: GC + Chlamydia By Amplified Detectionon 11-26-2021 C. trachomatis rRNA SUMIT+probe Ql (Unsp spec) Positive Abnormal Negative [facility] [address] Work Phone: Comment on above: The APTIMA Combo 2 a ssay is FDA-approved for Chlamydia trachomatis and Neisseria gonorrhoeae testing on female endocervical and vaginal swabs, ThinPrep liquid pap samples, male urine samples and urethral swabs. Performance characteristics for Chlamydia trachomatis and Neisseria gonorrhoeae testing on specific utz-ASP-rcojbpzg sample types (female urine samples) have been validated by [facility]. This laboratory is certified by CLIA to perform high complexity testing. Samples from all other sites are not validated for this method. N. gonorrhoeae rRNA SUMIT+probe Ql (Unsp spec) Negative Negative [facility] and [address] Work Phone: Comment on above: SOURCE: Urine The AP KATIA Combo 2 assay is FDA-approved for Chlamydia trachomatis and Neisseria gonorrhoeae testing on female endocervical and vaginal swabs, ThinPrep liquid pap samples, male urine samples and urethral swabs. Performance characteristics for Chlamydia trachomatis and Neisseria gonorrhoeae testing on specific fyt-ZFL-ddctsqei sample types (female urine samples) have been validated by [facility]. This laboratory is certified by CLIA to perform high complexity testing. Samples from all other sites are not validated for this method. HIV 1/2 ANTIGEN/ANTIBODY SCR EEN WITH REFLEX TO CONFIRMATIONon 11-26-2021 HIV 1+2 Ab Qn (S) Non-Reactive See Below [facility] [address] Work Phone: Comment on above: SOURCE: Reference Ra nge: NONREACTIVE HIV Ag/Ab screen is performed using the [employer] HIV Ag/Ab Combo assay which detects the presence of HIV p24 antigen as well as antibodies to HIV-1 (Group M and O) and HIV-2..No laboratory evidence of HIV infection. If acute HIV infection is suspected, consider testing for HIV RNA by PCR (viral load). HSV TYPE I / II, IGMon 11-26 HSV 1+2 IgM IA Qn (S) 0.78 {IV} <=0.89 [facility] [employer] Work Phone: Comment on above: INTERPRETIVE INFORMA [...] for more than 12 months post-infection.Performed By: [employer] [place] [id number] Director: Carlene Gore MD LMPon 11-26-2021 Last menstrual period start date 13Nov2021 [employer] and [employer] Work Phone: Laboratory - Cytologyon 11-08 Cytology report Cyto stain.thin prep Doc (Cvx/Vag) [employer] Work Phone: No Panel Informationon 11-26 >8.0 Abnormal [employer] Work Phone: Comment on above: POTENTIAL FOR CROSS- REACTIVITY BETWEENHSV I AND HSV II EXISTS.REF VALUESNEGATIVE <0.9EQUIVOCAL >=0.90 <=1.10POSITIVE >1.10 5.0 {INDEX} Abnormal [employer] [facility] [employer] Phone: Comment on above: REF VALUESNEGATIVE < 0.9EQUIVOCAL >=0.90 <=1.10POSITIVE >1.10 [employer] - Office Visiton 06 [employer] - Office Visit Diagnoses/Problems Assessed Screening for cervical cancer (V76.2) (Z12.4) Colitis, trichomonas (007.3) (A07.8) Infection due to Tritrichomonas species (136.8) (A07.8) Orders HIV 1/2 ANTIGEN/ANTIBODY SCREEN WITH REFLEX TO CONFIRMATION; Status:Active; Requested for:26Nov2021; HSV IgG1 And IgG2 Ab; Status:Active; Requested for:26Nov2021; HSV TYPE I / II, IGM; Status:Active; Requested for:26Nov2021; SYPHILIS SCREENING WITH REFLEX; Status:Active; Requested for:26Nov2021; PAP CHILDCARE TEACHER, Cytology; Status:In Progress - Specimen/Data Collected,Retrospective Authorization; Done: 26Nov2021 Last Menstrual Period (LMP): : 11/13/2021 PAP - Site : CERVICAL Cytology Order : ThinPrep PAP, Screening, HPV Reflex - Include Genotyping Provider Impressions Patient is a 26-year-old who comes in for 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 Pap smear was done. Currently declines contraception since she is not sexually active. Trichomoniasis found on exam. Will treat with Flagyl and will do a full STD panel. Follow-up in 3 weeks for test of cure. Also informed her that her partner needs to be treated. Chief Complaint Patient here today for yearly. Her last pap was 3-4 years ago in [place] that the patient states was normal. She has no concerns. She does not do a self breast exam. LMP:11/13/2021 History of Present IllnessPatient is a 26-year-old who comes in for 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 Patient reports she has not been [...] Weekly Vitals Vital Signs Recorded: 26Nov2021 09:02AM Shuadoqy235 Phafggghq95 Height5 ft 2 in Dsvtdn308 lb BMI Klsspgudbt48.09 kg/m2 BSA Calculated1.78 IEW32Wkf8822 Physical Exam Constitutional: Healthy-appearing woman in no distress. Head and Face: No obvious lesions. Neck: Supple without adenopathy. Cardiovascular: Regular rate and rhythm. Pulmonary: Clear to auscultation. Chest: Breasts were symmetrical with diffuse fibrocystic changes but no discrete masses discharge or retraction. Abdomen: Soft nontender no masses. External genitalia was slightly erythematous. The vagina was well estr (more content not included)... Normal [facility] SYPHILIS SCREENING WITH REFL EXon 11-26-2021 T. pallidum IgG+IgM IA Ql (S) Non-Reactive See Below [facility] and [facility] [employer] Work Phone: Comment on above: Reference Range: NON REACTIVENo significant level of Treponema pallidum antibody detected. Repeat testing in 2 to 4 weeks may be considered if early infection or incubating syphilis infection is suspected. Hemoglobin A1Con 11-12-2021 Glucose [Mass/Vol] 266 mg/dL [facility] Work Phone: HbA1c (Bld) [Mass fraction] 10.9 % Abnormal [facility] Work Phone: Comment on above: Diagnosis of Diabete s-Adults Non-Diabetic: < or = 5.6% Increased risk for developing diabetes: 5.7-6.4% Diagnostic of diabetes: > or = 6.5%. Monitoring of Diabetes Age (y) Therapeutic Goal (%) Adults: >18 <7.0 Pediatrics: 13-18 <7.5 7-12 <8.0 0- 6 7.5-8.5 [place] [employer]. Diabetes Care 33(S1), Jun 2009. Laboratory - Chemistry and C hemistry - challengeon 11-12-2021 Anion gap [Moles/Vol] 13 mmol/L 10 - 20 [facility] Work Phone: Calcium [Mass/Vol] 9.4 mg/dL 8.6 - 10.3 [facility] Work Phone: Chloride [Moles/Vol] 105 mmol/L 98 - 107 [facility] Work Phone: CO2 [Moles/Vol] 23 mmol/L 21 - 32 [facility] Work Phone: Creatinine [Mass/Vol] 0.51 mg/dL See Below [facility] Work Phone: Comment on above: Reference Range: 0.5 0 - 1.05 Glucose [Mass/Vol] 96 mg/dL 74 - 99 [facility] Work Phone: Potassium [Moles/Vol] 3.8 mmol/L 3.5 - 5.3 [facility] Work Phone: Sodium [Moles/Vol] 137 mmol/L 136 - 145 [facility] Work Phone: Urea nitrogen [Mass/Vol] 11 mg/dL 6 - 23 [facility] Work Phone: No Panel Informationon 11-12 >90 >90 [facility] Work Phone: Comment on above: CALCULATIONS OF ASCENCION MATED GFR ARE PERFORMED USING THE 2020 CKD-EPI STUDY REFIT EQUATION WITHOUT THE RACE VARIABLE FOR THE IDMS-TRACEABLE CREATININE METHODS.https://jasn.asnjournals.org/content/early// N.3828605318 [facility] Follow-up visit Diagnoses/Problems Seizure-like activity [...] in access program for 3 months has caser working on SSI/SSD due to mental illness has been suicidal recently but is improving lives alone dtr lives grandparents in [place] became homeless August 2021 activity walks and [...] Vital Signs Recorded: 12Nov2021 10:17AM Heart Rate95 Durwtrzk412 Hfhjbdetz36 Myeodk516.5 cm Ciumwx44.74 kg BMI Aiujmijghr22.95 kg/m2 BSA Calculated1.82 Tobacco Usea) Yes PHQ-2 [...] Nov 12 2021 10:47AM EST (Author) Normal [facility] Tobacco Screening.on Adult depression screening assessment Yes [facility] Work Phone: Tobacco use status CPHS a) Yes [facility] Work Phone: Auth for Release of Medical Recordson 08-07-2021 Auth for Release of Medical Records [id number] D:127 Normal [facility] Lab Reportson 08-06-2021 Lab Reports [id number]#[id number] D:127 Normal [facility] Family Medicine Office/Clini c Noteon 08-05-2021 Family Medicine Office/Clinic Note Chief Complaint TRANSLATION DIRECTOR here for check up. SHe is DM2, asthma. Sees Светлана for psych. 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 Here today requesting [...] to wean herself from use. Follows [facility] - feels depression and anxiety has been well controlled with current medication regimen -buspirone and fluoxetine. Also reports history of borderline personality disorder. 2019 - pap smear per patient. [facility]DCARE TEACHER in [place], no longer follows them. OARRS reviewed and [...] and can add years to your life. 8-602-MNFV-NOW or www.smokefree.gov provide access to helpful resources [...] disorder) (F41.1: (more content not included)... Normal [facility] Comment on above: Result Comment: Elec tronically Signed By: Katiana BOYD CNP\Date and Time Signed: 08/05/21 08:57 EST Hemoglobin A1Con 08-05-2021 Glucose [Mass/Vol] 235 mg/dL Normal [facility] Comment on above: Result Comment: The ADA and AACC recommend providing the estimated average glucose result to permit better patient understanding of their HBA1c result. Performed By: #### C JALEEL BELL, TSHX #### [facility] [address] [place], [place] [id number] Translator Interpreter: Milly Truong MD #### LIPR, GLYHGB, URNMAB #### [facility] [address] [place] [address] Translator Interpreter: Brice Jovel MD HbA1c (Bld) [Mass fraction] 9.8 % High 4.0-6.0 [facility] Comment on above: Performed By: #### C JALEEL BELL, TSHX #### [facility] [address] [place], [place] [id number] Translator Interpreter: Milly Truong MD #### LIPRebecca, GLYHGB, URNMAB #### [facility] [address] [place] [address] Translator Interpreter: Brice Jovel MD Lipid Profileon 08-04-2021 Cholesterol [Mass/Vol] 252 mg/dL High <200 [facility] Comment on above: Result Comment: Cholesterol Guidelines: <200 Desirable 200-240 Borderline >240 Undesirable Performed By: #### C JALEEL BELL, TSHX #### [facility] [address] [place], [place] [phone] Translator Interpreter: Milly Truong MD #### LIPR, GLYHGB, URNMAB #### [facility] [address] [place], [place] [id number] Translator Interpreter: Brice Jovel MD Cholesterol in HDL [Mass/Vol] 43 mg/dL Normal >40 [facility] Comment on above: Result Comment: HDL Guidelines: <40 Undesirable 40-59 Borderline >59 Desirable Performed By: #### C JALEEL BELL, TSHX #### [facility] [address] [place] [address] Translator Interpreter: Milly Truong MD #### LIPR, GLYHGB, URNMAB #### [facility] [address] [place] [address] [id number] Translator Interpreter: Brice Jovel MD Cholesterol in LDL [Mass/Vol] 180 mg/dL High 0-130 [facility] Comment on above: Result Comment: LDL Guidelines: <100 Desirable 100-129 Near to/above Desirable 130-159 Borderline >159 Undesirable Direct (measured) LDL and calculated LDL are not interchangeable tests. Performed By: #### C JALEEL BELL, TSHX #### [facility] [address] [place] [address] Translator Interpreter: Milly Truong MD #### LIPR, GLYHGB, URNMAB #### [facility] [address] [place] [address] [phone] Translator Interpreter: Brice Jovel MD Cholesterol.total/Cho lesterol in HDL [Mass ratio] 5.9 {ratio} High <5 [facility] Comment on above: Performed By: #### C JALEEL BELL, TSHX #### [facility] [address] [phone] Translator Interpreter: Milly Truong MD #### LIPRebecca, GLYHGB, URNMAB #### [facility] [address] [place] [address] [phone] Translator Interpreter: Brice Jovel MD Triglyceride [Mass/Vol] 144 mg/dL Normal <150 [facility] Comment on above: Result Comment: Triglyceride Guidelines: <150 Desirable 150-199 Borderline 200-499 High >499 Very high Based on AHA Guidelines for fasting triglyceride, March 2012. Performed By: #### C JALEEL BELL, TSHX #### [facility] [address] [phone] Translator Interpreter: Milly Truong MD #### LIPRebecca, GLYHGB, URNMAB #### [address] [place], [place] [phone] Translator Interpreter: Brice Jovel MD Microalb.,Random Uron 2021 Creatinine [Mass/Vol] 194.3 mg/dL Normal 28.0-217.0 [facility] Comment on above: Performed By: #### C DP, CP, TSHX #### [facility] [address] [place] [address] Translator Interpreter: Milly Truong MD #### LIPR, GLYHGB, URNMAB #### [address] [place], [place] [phone] Translator Interpreter: Brice Jovel MD Microalb/Creat Ratio 20 mcg/mg creat Normal <25 [facility] Comment on above: Performed By: #### C DP, CP, TSHX #### [facility] [address] [phone] Translator Interpreter: Milly Truong MD #### LIPR, GLYHGB, URNMAB #### [address] [phone] Translator Interpreter: Brice Jovel MD Microalbumin conc. 38 mg/L High <21 [facility] Comment on above: Performed By: #### C DP, CP, TSHX #### [facility] [address] [phone] Translator Interpreter: Milly Truong MD #### LIPR, GLYHGB, URNMAB #### [address] [place], [place] [phone] Translator Interpreter: Brice Jovel MD CBC with Diffon 08-03-2021 Abs. Basophil 0.00 k/uL Normal 0.0-0.2 [facility] Comment on above: Performed By: #### C DP, CP, TSHX #### [facility] [address] [phone] Translator Interpreter: Milly Truong MD #### LIPR, GLYHGB, URNMAB #### [address] [phone] Translator Interpreter: Brice Jovel MD Abs.Neutrophil (Seg) 5.40 k/uL Normal 2.5-7.0 [facility] Comment on above: Performed By: #### C DP, CP, TSHX #### [facility] [address] [phone] Translator Interpreter: Milly Truong MD #### LIPR, GLYHGB, URNMAB #### [address] [phone] Translator Interpreter: Brice Jovel MD Auto Diff Performed YES Normal [facility] Comment on above: Performed By: #### C DP, CP, TSHX #### [facility] [address] [phone] Translator Interpreter: Milly Truong MD #### LIPR, GLYHGB, URNMAB #### [address] [phone] Translator Interpreter: Brice Jovel MD Basophils/100 WBC (Bld) 0 % Normal 0-2 [facility] Comment on above: Performed By: #### C DP, CP, TSHX #### [facility] [address] [place] [address] Translator Interpreter: Milly Truong MD #### LIPR, GLYHGB, URNMAB #### [address] [phone] Translator Interpreter: Brice Jovel MD Eosinophils (Bld) [#/Vol] 0.20 10*3/uL Normal 0.0-0.4 [facility] Comment on above: Performed By: #### C DP, CP, TSHX #### [facility] [address] [place], [place] [phone] Translator Interpreter: Milly Truong MD #### LIPR, GLYHGB, URNMAB #### [address] [address] [place], [place] [phone] Translator Interpreter: Brice Jovel MD Eosinophils/100 WBC (Bld) 2 % Normal 0-5 [facility] Comment on above: Performed By: #### C DP, CP, TSHX #### [facility] [address] [place], [place] [phone] Translator Interpreter: Milly Truong MD #### LIPR, GLYHGB, URNMAB #### [address] [phone] Translator Interpreter: Brice Jovel MD Erythrocyte distribution width (RBC) [Ratio] 12.2 % Normal 12.1-15.2 [facility] Comment on above: Performed By: #### C DP, CP, TSHX #### [facility] [address] [place], [place] [phone] Translator Interpreter: Milly Truong MD #### LIPRebecca, GLYHGB, URNMAB #### [address] [phone] Translator Interpreter: Brice Jovel MD Hematocrit (Bld) [Volume fraction] 45.6 % Normal 36-46 [facility] Comment on above: Performed By: #### C DP, CP, TSHX #### [facility] [address] [place], [place] [phone] Translator Interpreter: Milly Truong MD #### LIPR, GLYHGB, URNMAB #### [address] [phone] Translator Interpreter: Brice Jovel MD Hemoglobin (Bld) [Mass/Vol] 15.9 g/dL Normal 12.0-16.0 [facility] Comment on above: Performed By: #### C DP, CP, TSHX #### [facility] [address] [place], [place] [phone] Translator Interpreter: Milly Truong MD #### LIPR, GLYHGB, URNMAB #### [address] [place], [place] [phone] Translator Interpreter: Brice Jovel MD Lymphocytes (Bld) [#/Vol] 2.50 10*3/uL Normal 1.0-4.8 [facility] Comment on above: Performed By: #### C DP, CP, TSHX #### [facility] [address] [place] [address] Translator Interpreter: Milly Truong MD #### LIPR, GLYHGB, URNMAB #### [address] [phone] Translator Interpreter: Brice Jovel MD Lymphocytes/100 WBC (Bld) 30 % Normal 15-40 [facility] Comment on above: Performed By: #### C DP, CP, TSHX #### [facility] [address] [place] [address] Translator Interpreter: Milly Truong MD #### LIPR, GLYHGB, URNMAB #### [address] [phone] Translator Interpreter: Brice Jovel MD MCH (RBC) [Entitic mass] 29.1 pg Normal 26-34 [facility] Comment on above: Performed By: #### C DP, CP, TSHX #### [facility] [address] [place] [address] Translator Interpreter: Milly Truong MD #### LIPR, GLYHGB, URNMAB #### [address] [phone] Translator Interpreter: Brice Jovel MD MCHC (RBC) [Mass/Vol] 34.8 g/dL Normal 31-37 [facility] Comment on above: Performed By: #### C JALEEL BELL, TSHX #### [facility] [address] [place] [address] Translator Interpreter: Milly Truong MD #### LIPR, GLYHGB, URNMAB #### [address] [phone] Translator Interpreter: Brice Jovel MD MCV (RBC) [Entitic vol] 83.8 fL Normal 80-100 [facility] Comment on above: Performed By: #### C JALEEL BELL, TSHX #### [facility] [address] [place] [address] Translator Interpreter: Milly Truong MD #### LIPR, GLYHGB, URNMAB #### [address] [phone] Translator Interpreter: Brice Jovel MD Monocytes (Bld) [#/Vol] 0.20 10*3/uL Normal 0.0-1.0 [facility] Comment on above: Performed By: #### C JALEEL BELL, TSHX #### [facility] [address] [place] [address] Translator Interpreter: Milly Truong MD #### LIPR, GLYHGB, URNMAB #### [address] [address] Translator Interpreter: Brice Jovel MD Monocytes/100 WBC (Bld) 2 % Low 4-8 [facility] Comment on above: Performed By: #### C JALEEL BELL, TSHX #### [facility] [address] [phone] Translator Interpreter: Milly Truong MD #### LIPR, GLYHGB, URNMAB #### [address] [address] Translator Interpreter: Brice Jovel MD Neutrophil (Seg) 66 % Normal 47-75 [facility] Comment on above: Performed By: #### C DP, CP, TSHX #### [facility] [address] [place] [address] Translator Interpreter: Milly Truong MD #### LIPR, GLYHGB, URNMAB #### [facility] [address] [place] [address] Translator Interpreter: Brice Jovel MD Platelets (Bld) [#/Vol] 306 10*3/uL Normal 140-450 [facility] Comment on above: Performed By: #### C DP, CP, TSHX #### [facility] [address] [place] [address] Translator Interpreter: Milly Truong MD #### LIPR, GLYHGB, URNMAB #### [facility] [address] [place] [address] Translator Interpreter: Brice Jovel MD RBC (Bld) [#/Vol] 5.45 10*6/uL High 4.0-5.2 [facility] Comment on above: Performed By: #### C DP, CP, TSHX #### [facility] [address] [place] [address] Translator Interpreter: Milly Truong MD #### LIPR, GLYHGB, URNMAB #### [facility] [address] [place] [address] Translator Interpreter: Brice Jovel MD WBC (Bld) [#/Vol] 8.3 10*3/uL Normal 3.5-11.0 [facility] Comment on above: Performed By: #### C DP, CP, TSHX #### [facility] [address] [place], [place] [phone] Translator Interpreter: Milly Truong MD #### LIPR, GLYHGB, URNMAB #### [address] [place], [place] [phone] Translator Interpreter: Brice Jovel MD Comp Metabolic Profon 2021 (cont.) Normal [facility] Comment on above: Result Comment: Aver age GFR for 20-29 years old: 116 mL/min/1.73sq m Chronic Kidney Disease: <60 mL/min/1.73sq m Kidney failure: <15 mL/min/1.73sq m eGFR calculated using average adult body mass. Additional eGFR calculator available at: http://www.[employer]/multiple_crcl_2011.htm Performed By: #### C JALEEL BELL, TSHX #### [facility] [address] [place], [place] [phone] Translator Interpreter: Milly Truong MD #### LIPRebecca, GLYHGB, URNMAB #### [address] [address] Translator Interpreter: Brice Jovel MD Albumin [Mass/Vol] 4.3 g/dL Normal 3.5-5.2 [facility] Comment on above: Performed By: #### C JALEEL BELL, TSHX #### [facility] [address] [place], [place] [phone] Translator Interpreter: Milly Truong MD #### JAIMEE GLYHGB, URNMAB #### [address] [place], [place] 9440008 Translator Interpreter: Brice Jovel MD Alkaline Phos 106 U/L High 35-104 [facility] Comment on above: Performed By: #### C JALEEL BELL, TSHX #### [facility] [address] [place], [place] [phone] Translator Interpreter: Milly Truong MD #### LIPRebecca, GLYHGB, URNMAB #### [address], [place] [phone] Translator Interpreter: Brice Jovel MD ALT [Catalytic activity/Vol] 19 U/L Normal 5-33 [facility] Comment on above: Performed By: #### C DP, CP, TSHX #### [facility] [address] [place], [place] [phone] Translator Interpreter: Milly Truong MD #### LIPR, GLYHGB, URNMAB #### [address] [place], [place] [phone] Translator Interpreter: Brice Jovel MD Anion gap [Moles/Vol] 13 mmol/L Normal 9-17 [facility] Comment on above: Performed By: #### C DP, CP, TSHX #### [facility] [address] [place], [place] [phone] Translator Interpreter: Milly Truong MD #### LIPR, GLYHGB, URNMAB #### [address] [phone] Translator Interpreter: Brice Jovel MD AST [Catalytic activity/Vol] 12 U/L Normal <32 [facility] Comment on above: Performed By: #### C DP, CP, TSHX #### [facility] [address] [place], [place] [phone] Translator Interpreter: Milly Truong MD #### LIPR, GLYHGB, URNMAB #### [address] [place], [place] [phone] Translator Interpreter: Brice Jovel MD Bilirubin [Mass/Vol] 0.37 mg/dL Normal 0.30-1.20 [facility] Comment on above: Performed By: #### C DP, CP, TSHX #### [facility] [address] [place], [place] [phone] Translator Interpreter: Milly Truong MD #### LIPR, GLYHGB, URNMAB #### [facility] [address] [place] [address] Translator Interpreter: Brice Jovel MD BUN/CRE Ratio 17 Normal 9-20 [facility] Comment on above: Performed By: #### C DP, CP, TSHX #### [facility] [address] [place], [place] [phone] Translator Interpreter: Milly Truong MD #### LIPR, GLYHGB, URNMAB #### [address] [phone] Translator Interpreter: Brice Jovel MD Calcium [Mass/Vol] 9.4 mg/dL Normal 8.6-10.4 [facility] Comment on above: Performed By: #### C DP, CP, TSHX #### [facility] [address] [place], [place] [phone] Translator Interpreter: Milly Truong MD #### LIPR, GLYHGB, URNMAB #### [address] [phone] Translator Interpreter: Brice Jovel MD Chloride [Moles/Vol] 94 mmol/L Low 98-107 [facility] Comment on above: Performed By: #### C DP, CP, TSHX #### [facility] [address] [place], [place] [phone] Translator Interpreter: Milly Truong MD #### LIPR, GLYHGB, URNMAB #### [address] [phone] Translator Interpreter: Brice Jovel MD CO2 [Moles/Vol] 26 mmol/L Normal 20-31 [facility] Comment on above: Performed By: #### C DP, CP, TSHX #### [facility] [address] [place], [place] [phone] Translator Interpreter: Milly Truong MD #### LIPR, GLYHGB, URNMAB #### [address] [place], [place] [phone] Translator Interpreter: Brice Jovel MD Creatinine [Mass/Vol] 0.52 mg/dL Normal 0.50-0.90 [facility] Comment on above: Performed By: #### C DP, CP, TSHX #### [facility] [address] [phone] Translator Interpreter: Milly Truong MD #### LIPR, GLYHGB, URNMAB #### [address] [place], [place] [phone] Translator Interpreter: Brice Jovel MD GFR, Amer >60 Normal >60 [facility] Comment on above: Performed By: #### C DP, CP, TSHX #### [facility] [address] [phone] Translator Interpreter: Milly Truong MD #### LIPR, GLYHGB, URNMAB #### [address] [place], [place] [phone] Translator Interpreter: Brice Jovel MD GFR,non Amer >60 Normal >60 [facility] Comment on above: Performed By: #### C DP, CP, TSHX #### [facility] [address] [phone] Translator Interpreter: Milly Truong MD #### LIPR, GLYHGB, URNMAB #### [address] [place], [place] [phone] Translator Interpreter: Brice Jovel MD Glucose [Mass/Vol] 291 mg/dL High 70-99 [facility] Comment on above: Performed By: #### C DP, CP, TSHX #### [facility] [address] [place] [address] Translator Interpreter: Milly Truong MD #### LIPR, GLYHGB, URNMAB #### [address] [phone] Translator Interpreter: Brice Jovel MD Potassium [Moles/Vol] 3.7 mmol/L Normal 3.7-5.3 [facility] Comment on above: Performed By: #### C DP, CP, TSHX #### [facility] [address] [place] [address] Translator Interpreter: Milly Truong MD #### LIPR, GLYHGB, URNMAB #### [address] [phone] Translator Interpreter: Brice Jovel MD Protein [Mass/Vol] 8.0 g/dL Normal 6.4-8.3 [facility] Comment on above: Performed By: #### C DP, CP, TSHX #### [facility] [address] [phone] Translator Interpreter: Milly Truong MD #### LIPRebecca, GLYHGB, URNMAB #### [address] [phone] Translator Interpreter: Brice Jovel MD Sodium [Moles/Vol] 133 mmol/L Low 135-144 [facility] Comment on above: Performed By: #### C DP, CP, TSHX #### [facility] [address] [phone] Translator Interpreter: Milly Truong MD #### LIPR, GLYHGB, URNMAB #### [address] [phone] Translator Interpreter: Brice Jovel MD Urea nitrogen [Mass/Vol] 9 mg/dL Normal 6-20 [facility] Comment on above: Performed By: #### C DP, CP, TSHX #### [facility] [address] [place] [address] Translator Interpreter: Milly Truong MD #### LIPR, GLYHGB, URNMAB #### [facility] [address] [place] [address] Translator Interpreter: Brice Jovel MD TSH w/reflex to FT4on 2021 TSH Qn 0.65 m[IU]/L Normal 0.30-5.00 [facility] Comment on above: Performed By: #### C DP, CP, TSHX #### [facility] [address] [place] [address] Translator Interpreter: Milly Truong MD #### JAIMEE, GLYHGJo, URNMAB #### [facility] [address] [place] [address] Translator Interpreter: Brice Jovel MD Patient Educationon 08-02-19 Patient [...] plan? Your health care provider or certified orthotic fitter can help you make a plan for [...] ? Your health care provider or certified orthotic fitter can help you make a plan for [...] Document Reviewe (more content not included)... Normal [facility] Blood Pressure Cuff Sizeon 0 01-04-2021 Fall risk assessment a) No falls within the last year [facility] Work Phone: Tobacco use status CPHS a) Yes [facility] Work Phone: Blood Pressure Cuff Size Adult [facility] Work Phone: Blood Pressure Cuff Size Yes [facility] Work Phone: Blood Pressure Cuff Sizeon 0 11-02-2020 Fall risk assessment a) No falls within the last year [facility] Work Phone: Tobacco use status CPHS a) Yes [facility] Work Phone: Blood Pressure Cuff Size Adult [facility] Work Phone: Blood Pressure Cuff Size a) Yes [facility] Work Phone: Acetaminophen Level, Serumon 10-23-2020 Acetaminophen [Mass/Vol] ug/mL See Below [facility] Work Phone: Comment on above: Reference Range: 10. 0 - 30.0 Acetylsalicylic Acid Level, Serumon 10-23-2020 Salicylates [Mass/Vol] mg/dL 4 - 20 [facility] Work Phone: Alcohol, Serumon 10-23-2020 Ethanol [Mass/Vol] mg/dL [facility] Work Phone: Comment on above: FOR MEDICAL USE ONLY . .REF VALUES <10 Complete Blood Count + Diffe rentialon 10-23-2020 Basophils/100 WBC (Bld) 0.8 % 0.0 - 2.0 [facility] Work Phone: Erythrocyte distribution width (RBC) [Ratio] 12.7 % See Below [facility] Work Phone: Comment on above: Reference Range: 11. 5 - 14.5 Hematocrit (Bld) [Volume fraction] 44.6 % See Below [facility] Work Phone: Comment on above: Reference Range: 36. 0 - 46.0 Hemoglobin (Bld) [Mass/Vol] 15.2 g/dL See Below [facility] Work Phone: Comment on above: Reference Range: 12. 0 - 16.0 Lymphocytes/100 WBC (Bld) 23.6 % See Below [facility] Work Phone: Comment on above: Reference Range: 13. 0 - 44.0 MCHC (RBC) [Mass/Vol] 34.0 g/dL See Below [facility] Work Phone: Comment on above: Reference Range: 32. 0 - 36.0 MCV (RBC) [Entitic vol] 85 fL 80 - 100 [facility] Work Phone: Monocytes/100 WBC (Bld) 4.5 % 2.0 - 10.0 [facility] Work Phone: Neutrophils/100 WBC (Bld) 70.1 % See Below [facility] Work Phone: Comment on above: Reference Range: 40. 0 - 80.0 Platelets (Bld) [#/Vol] 245 10*3/uL 150 - 450 [facility] Work Phone: RBC (Bld) [#/Vol] 5.24 {x10E12/L} above high threshold See Below [facility] Work Phone: Comment on above: Reference Range: 4.0 0 - 5.20 WBC (Bld) [#/Vol] 9.7 10*3/uL 4.4 - 11.3 [facility] Work Phone: Complete Blood Count + Differential 0.10 {x10E9/L} See Below [facility] Work Phone: Comment on above: Reference Range: 0.0 0 - 0.10 Reference Range: 0.0 0 - 0.70 Complete Blood Count + Differential 0.40 {x10E9/L} See Below [facility] Work Phone: Comment on above: Reference Range: 0.1 0 - 1.00 Complete Blood Count + Differential 2.30 {x10E9/L} See Below [facility] Work Phone: Comment on above: Reference Range: 1.2 0 - 4.80 Complete Blood Count + Differential 6.80 {x10E9/L} See Below [facility] Work Phone: Comment on above: Reference Range: 1.2 0 - 7.70 Percent differential counts (%) should be interpreted in the context of the absolute cell counts (cells/L). Complete Blood Count + Differential 1.0 % 0.0 - 6.0 [facility] Work Phone: Coronavirus 2019 RNA by PCR, [facility] 10-23-2020 Coronavirus 2019 RNA by PCR, Symptomatic Not detected Normal See Below [facility] Work Phone: Comment on above: SOURCE: Nasal, Nasop haryngealReference Range: Not Detected.This test has received FDA Emergency Use Authorization (EUA) and has been verified by [facility]. This test is only authorized for the duration of time that circumstances exist to justify the authorization of the emergency use of in vitro diagnostic tests for the detection of SARS-CoV-2 virus and/or diagnosis of COVID-19 infection under section 564(b)(1) of the Act, 21 U.S.C. 360bbb-3(b)(1), unless the authorization is terminated or revoked sooner. [facility] is certified under CLIA-88 as qualified to perform high complexity testing. Testing is performed in the [facility] laboratory located at [address] [address].SARS-CoV-2/Flu/RSV Multiplex Test: Fact sheet for providers: https://www.fda.gov/media/984203/downloadFact sheet for patients: https://www.fda.gov/media/278444/download Laboratory - Chemistry and C hemistry - challengeon 10-23-2020 Albumin BCP dye [Mass/Vol] 4.1 g/dL 3.4 - 5.0 [facility] Work Phone: ALP [Catalytic activity/Vol] 107 U/L 33 - 110 [facility] Work Phone: ALT With P-5'-P [Catalytic activity/Vol] 26 U/L 7 - 45 [facility] Work Phone: Comment on above: Patients treated wit h Sulfasalazine may generate falsely decreased results for ALT. Anion gap [Moles/Vol] 13 mmol/L 10 - 20 [facility] Work Phone: AST With P-5'-P [Catalytic activity/Vol] 14 U/L 9 - 39 [facility] Work Phone: Bilirubin [Mass/Vol] 0.4 mg/dL 0.0 - 1.2 [facility] Work Phone: Calcium [Mass/Vol] 9.4 mg/dL 8.6 - 10.3 [facility] Work Phone: Chloride [Moles/Vol] 98 mmol/L 98 - 107 [facility] Work Phone: CO2 [Moles/Vol] 26 mmol/L 21 - 32 [facility] Work Phone: Creatinine [Mass/Vol] 0.54 mg/dL See Below [facility] Work Phone: Comment on above: Reference Range: 0.5 0 - 1.05 Glucose [Mass/Vol] 345 mg/dL above high threshold 74 - 99 [facility] Work Phone: Potassium [Moles/Vol] 4.0 mmol/L 3.5 - 5.3 [facility] Work Phone: Protein [Mass/Vol] 7.5 g/dL 6.4 - 8.2 [facility] Work Phone: Sodium [Moles/Vol] 133 mmol/L below low threshold 136 - 145 [facility] Work Phone: Urea nitrogen [Mass/Vol] 8 mg/dL 6 - 23 [facility] Work Phone: Laboratory - Drug toxicology on 10-23-2020 Amphetamines Screen Ql (U) Negative NEGATIVE [facility] Work Phone: Comment on above: CUTOFF LEVEL: 500 NG /ML Cross-reactivity has been reported with high concentrations of the following drugs: buproprion, chloroquine, chlorpromazine, ephedrine, mephentermine, fenfluramine, phentermine, phenylpropanolamine, pseudoephedrine, and propranolol. Barbiturates Screen Ql (U) Negative NEGATIVE [facility] Work Phone: Comment on above: CUTOFF LEVEL: 200 NG /ML Benzodiazepines Ql (U) Negative NEGATIVE [facility] Work Phone: Comment on above: CUTOFF LEVEL: 200 NG /ML Benzoylecgonine Screen Ql (U) Negative NEGATIVE [facility] Work Phone: Comment on above: CUTOFF LEVEL: 150 NG /ML Cannabinoids Screen Ql (U) Negative NEGATIVE [facility] Work Phone: Comment on above: CUTOFF LEVEL: 50 NG/ ML Methadone Screen Ql (U) Negative NEGATIVE [facility] Work Phone: Comment on above: CUTOFF LEVEL: 150 NG /ML The metabolite Y-vfyrt-wfrsgusrwvudqi (LAAM) is not detected by this method in concentrations that would be found in the urine of patients on LAAM therapy. Opiates Screen Ql (U) Negative NEGATIVE [facility] Work Phone: Comment on above: CUTOFF LEVEL: 300 NG /ML The opiate screen does not detect fentanyl, meperidine, or tramadol. Oxycodone is not consistently detected (refer to Oxycodone Screen, Urine result). oxyCODONE+oxyMORphone Screen Ql (U) Negative NEGATIVE [facility] Work Phone: Comment on above: CUTOFF LEVEL: 100 NG /ML This test will accurately detect both oxycodone and oxymorphone. Phencyclidine Ql (U) Negative NEGATIVE [facility] Work Phone: Comment on above: CUTOFF LEVEL: 25 NG/ ML Cross-reactivity has been reported with dextromethorphan. No Panel Informationon 10-23 >60 >60 [facility] Work Phone: Comment on above: CALCULATIONS OF ASCENCION MATED GFR ARE PERFORMED USING THE MDRD STUDY EQUATION FOR THE IDMS-TRACEABLE CREATININE METHODS. CLIN CHEM 2007;53:766-72 SEE BELOW [facility] Work Phone: Comment on above: Drug screen results are presumptive and should not be used to assess compliance with prescribed medication. Contact the performing [facility] laboratory to add-on definitive confirmatory testing [...] 10-23-2020 XR Chest Single view Normal [facility] Work Phone: Urinalysison 10-23-2020 Color (U) Straw See Below [facility] Work Phone: Comment on above: Reference Range: STR AW,YELLOW Glucose Ql (U) >=500(3+) Abnormal NEGATIVE [facility] Work Phone: Ketones Ql (U) 5(TRACE) Abnormal NEGATIVE [facility] Work Phone: Leukocyte esterase Test strip Ql (U) MODERATE(2+) Abnormal NEGATIVE [facility] Work Phone: pH (U) 5.0 [pH] 5.0 - 8.0 [facility] Work Phone: Protein (U) [Mass/Vol] Negative NEGATIVE [facility] Work Phone: RBC (U) [#/Vol] Negative NEGATIVE [facility] Work Phone: Specific gravity (U) [Rel density] 1.037 1 above high threshold See Below [facility] Work Phone: Comment on above: Reference Range: 1.0 05 - 1.035 Urinalysis Negative NEGATIVE [facility] Work Phone: Comment on above: CUTOFF LEVEL: 1 NG/M L The performance characteristics of this test have been determined by the individual laboratory site where testing is performed. This test has not been cleared or approved by the FDA; however, the FDA has determined that such clearance is not necessary. Urinalysis <2.0 0.0 - 1.9 [facility] Work Phone: Urinalysis HAZY CLEAR [facility] Work Phone: Urinalysis, Microscopicon Urinalysis, Microscopic 5 {/HPF} [facility] Work Phone: Urinalysis, Microscopic None 0-5 [facility] Work Phone: Urinalysis, Microscopic 19 {/HPF} Abnormal 0-5 [facility] Work Phone: EEG (STANDARD)on 07-19-2020 Srini Medina MD 07/19/2020 4:43 PM [facility] EEG Report Reason for EEG: Spells [...] epileptiform discharges or ictal activity was seen. [facility] COVID-19, MOLECULARon 2019 SARS-COV-2 RNA (JANIS) Not Detected Normal Not Detected [facility] Comment on above: Result [...] at the following links: For Healthcare Providers: https://www.fda.gov/media/110916/download For Patients: https://www.fda.gov/media/827982/download Performed By: #### L [id number] #### [facility] [address] [address] Regulo Hazel M.D. [id number] Hemoglobin A1Con 01-31-2020 HbA1c (Bld) [Mass fraction] 8.2 % [facility] Work Phone: Comment on above: Diagnosis of Diabete s-Adults Non-Diabetic: < or = 5.6% Increased risk for developing diabetes: 5.7-6.4% Diagnostic of diabetes: > or = 6.5%. Monitoring of Diabetes Age (y) Therapeutic Goal (%) Adults: >18 <7.0 Pediatrics: 13-18 <7.5 7-12 <8.0 0- 6 7.5-8.5 [place] [employer]. Diabetes Care 33(S1), Jun 2009. HbA1c (Bld) [Mass fraction] 189 {MG/DL} [facility] Work Phone: Sedimentation Rateon 020 ESR (Bld) [Velocity] 19 mm/h [facility] Interpretation and review of laboratory results Normal [facility] Complete Blood Count + Diffe rentialon 09-28-2019 Basophils (Bld) [#/Vol] 0.10 {x10E9/L} See Below [facility] Work Phone: Comment on above: Reference Range: 0.0 0 - 0.10 Basophils/100 WBC (Bld) 0.8 % 0.0 - 2.0 [facility] Work Phone: Eosinophils (Bld) [#/Vol] 0.20 {x10E9/L} See Below [facility] Work Phone: Comment on above: Reference Range: 0.0 0 - 0.70 Eosinophils/100 WBC (Bld) 2.1 % 0.0 - 6.0 [facility] Work Phone: Erythrocyte distribution width (RBC) [Ratio] 12.7 % See Below [facility] Work Phone: Comment on above: Reference Range: 11. 5 - 14.5 Hematocrit (Bld) [Volume fraction] 42.0 % See Below [facility] Work Phone: Comment on above: Reference Range: 36. 0 - 46.0 Hemoglobin (Bld) [Mass/Vol] 14.4 g/dL See Below [facility] Work Phone: Comment on above: Reference Range: 12. 0 - 16.0 Lymphocytes (Bld) [#/Vol] 2.20 {x10E9/L} See Below [facility] Work Phone: Comment on above: Reference Range: 1.2 0 - 4.80 Lymphocytes/100 WBC (Bld) 29.7 % See Below [facility] Work Phone: Comment on above: Reference Range: 13. 0 - 44.0 MCHC (RBC) [Mass/Vol] 34.4 g/dL See Below [facility] Work Phone: Comment on above: Reference Range: 32. 0 - 36.0 MCV (RBC) [Entitic vol] 87 fL 80 - 100 [facility] Work Phone: Monocytes (Bld) [#/Vol] 0.40 {x10E9/L} See Below [facility] Work Phone: Comment on above: Reference Range: 0.1 0 - 1.00 Monocytes/100 WBC (Bld) 5.2 % 2.0 - 10.0 [facility] Work Phone: Neutrophils (Bld) [#/Vol] 4.70 {x10E9/L} See Below [facility] Work Phone: Comment on above: Reference Range: 1.2 0 - 7.70 Percent differential counts (%) should be interpreted in the context of the absolute cell counts (cells/L). Neutrophils/100 WBC (Bld) 62.2 % See Below [facility] Work Phone: Comment on above: Reference Range: 40. 0 - 80.0 Platelets (Bld) [#/Vol] 263 {x10E9/L} 150 - 450 [facility] Work Phone: RBC (Bld) [#/Vol] 4.85 {x10E12/L} See Below [facility] Work Phone: Comment on above: Reference Range: 4.0 0 - 5.20 WBC (Bld) [#/Vol] 0.1 {/100_WBC} [facility] Work Phone: WBC (Bld) [#/Vol] 7.5 {x10E9/L} 4.4 - 11.3 [facility] Work Phone: HCG, Beta Quantitativeon HCG.beta subunit Qn m[IU]/mL [facility] Work Phone: Comment on above: Low-level [...] performed using a different test methodology at [facility] than other [facility]. Direct result comparison should only be made within the same method. REF VALUESNON FEMALE <5MALES <5 Hemoglobin A1Con 09-28-2019 HbA1c (Bld) [Mass fraction] 7.2 % [facility] Work Phone: Comment on above: Diagnosis of Diabete s-Adults Non-Diabetic: < or = 5.6% Increased risk for developing diabetes: 5.7-6.4% Diagnostic of diabetes: > or = 6.5%. Monitoring of Diabetes Age (y) Therapeutic Goal (%) Adults: >18 <7.0 Pediatrics: 13-18 <7.5 7-12 <8.0 0- 6 7.5-8.5 [place] [employer]. Diabetes Care 33(S1), Jun 2009. HbA1c (Bld) [Mass fraction] 160 {MG/DL} [facility] Work Phone: Metabolic Panelon 09-28-2019 Anion gap [Moles/Vol] 11 mmol/L 10 - 20 [facility] Work Phone: Calcium [Mass/Vol] 9.6 mg/dL 8.6 - 10.3 [facility] Work Phone: Chloride [Moles/Vol] 104 mmol/L 98 - 107 [facility] Work Phone: CO2 [Moles/Vol] 26 mmol/L 21 - 32 [facility] Work Phone: Creatinine [Mass/Vol] 0.65 mg/dL See Below [facility] Work Phone: Comment on above: Reference Range: 0.5 0 - 1.05 Glucose [Mass/Vol] 252 mg/dL above high threshold 74 - 99 [facility] Work Phone: Potassium [Moles/Vol] 3.8 mmol/L 3.5 - 5.3 [facility] Work Phone: Sodium [Moles/Vol] 137 mmol/L 136 - 145 [facility] Work Phone: Urea nitrogen [Mass/Vol] 14 mg/dL 6 - 23 [facility] Work Phone: Otheron 09-28-2019 >60 >60 [facility] Work Phone: Comment on above: CALCULATIONS OF ASCENCION MATED GFR ARE PERFORMED USING THE MDRD STUDY EQUATION FOR THE IDMS-TRACEABLE CREATININE METHODS. CLIN CHEM 2007;53:766-72 Thyroidon 09-28-2019 TSH Qn 0.54 {mIU/L} See Below [facility] Work Phone: Comment on above: Reference Range: 0.4 4 - 3.98 Note new pediatric reference range as of 08/12/2019. TSH testing is performed using different testing methodology at [facility] than at other [facility]. Direct result comparisons should only be made within the same method. HCG, Beta Quantitativeon HCG.beta subunit Qn m[IU]/mL [facility] and [address] [employer] Work Phone: Comment on above: Low-level positive [...] performed using a different test methodology at [facility] than other [facility]. Direct result comparison should only be made within the same method. REF VALUESNON FEMALE <5MALES <5 IO HCG, Urine Test on 05-13-2019 HCG ( test) Ql (U) Negative [facility] and [address] [employer] Work Phone: Comment on above: MEDLINE [id number] P 10/06/2020 URINALYSISon 03-21-2019 Bacteria Auto Ql (U) None Seen None Se en /[facility]pf [facility]l (U) Negative [facility] Clarity Refractometry automated (U) Hazy Abnormal Clear [facility] Color (U) Yellow Colorless, Yellow [facility] Epithelial cells.squamous Auto (Urine sed) [#/Area] 4 [facility] Glucose Auto test strip (U) [Mass/Vol] Negative Negative mg/dL [facility] Hemoglobin Auto test strip Ql (U) Negative Negative [facility] Interpretation and review of laboratory results Abnormal [facility] Ketones (U) [Mass/Vol] Negative Negative mg/dL [facility] Leukocyte esterase Auto test strip Ql (U) Trace Abnormal Negative [facility] Mucus Auto (Urine sed) [#/Area] Rare None Seen, Rare /lpf [facility] Nitrite Auto test strip Ql (U) Negative Negative [facility] pH (U) 6.0 [pH] [facility] Protein (U) [Mass/Vol] Negative Negative mg/dL [facility] RBC Auto (Urine sed) [#/Area] <1 [facility] Specific gravity (U) [Rel density] 1.020 [facility] Spermatozoa Auto (Urine sed) [#/Area] Present Abnormal None Seen /hpf [facility] Urobilinogen (U) [Mass/Vol] >=4.0 Abnormal <2.0 mg/dL [facility] WBC Auto (Urine sed) [#/Area] 1 [facility] Microscopic examinat ion is performed on all urinalysis samples and only positive findings are reported. The test for blood on the chemical analytic portion of urinalysis may also be positive due to hemoglobinuria and myoglobinuria and if red blood cells are present they are quantified by microscopic examination. [facility] hCG, Blood,QUALitativeon Beta HCG ( test) Ql Negative Negative [facility] Interpretation and review of laboratory results Normal [facility] Negative: The result is less than or equal to 5 mIU/mL of HCG. [facility] Alcohol, Medicalon 9 Ethanol [Mass/Vol] mg/dL <10.00 mg/dL [facility] Interpretation and review of laboratory results Normal [facility] DRUGS OF ABUSE SCREEN, URINE on 03-11-2019 Amphetamines Ql (U) None Detected None Detected [facility] Comment on above: Urine Amphetamine Cu toff: < 1000 ng/mL = None Detected Barbiturates Screen Ql (U) None Detected None Detected [facility] Comment on above: Urine Barbiturates C utoff: < 200 ng/mL = None Detected Benzodiazepines Ql (U) None Detected None Detected [facility] Comment on above: Urine Benzodiazepine Cutoff: < 200 ng/mL = None Detected Cannabinoids Screen Ql (U) None Detected None Detected [facility] Comment on above: Urine Cannabinoids C utoff: < 50 ng/mL = None Detected Cocaine Ql (U) None Detected None Detected [facility] Comment on above: Urine Cocaine Cutoff : < 300 ng/mL = None Detected Interpretation and review of laboratory results Normal [facility] Methadone Screen Ql (U) None Detected None Detected [facility] Comment on above: Urine Methadone Cuto ff: < 300 ng/mL = None Detected Opiates Screen Ql (U) None Detected None Detected [facility] Comment on above: Urine Opiates Cutoff : < 300 ng/mL = None Detected Oxycodone Ql (U) None Detected None Detected [facility] Comment on above: Urine Oxycodone Cuto ff: < 100 ng/mL = None Detected Screen results shoul d be used for treatment purposes only. [facility] Otheron 03-11-2019 Extra Tube Hold for add-ons. [facility] Comment on above: Auto resulted. URINALYSISon 03-11-2019 Bacteria Auto Ql (U) None Seen None Se en /hpf [facility] Bilirubin Ql (U) Negative Negative [facility] th Clarity Refractometry automated (U) Hazy Abnormal Clear [facility] Color (U) Yellow Colorless, Yellow [facility] Epithelial cells.squamous Auto (Urine sed) [#/Area] 6 High [facility] Glucose Auto test strip (U) [Mass/Vol] Negative Negative mg/dL [facility] Hemoglobin Auto test strip Ql (U) Negative Negative [facility] Interpretation and review of laboratory results Abnormal [facility] Ketones (U) [Mass/Vol] Trace Abnormal Negative mg/dL [facility] Leukocyte esterase Auto test strip Ql (U) Negative Negative [facility] Mucus Auto (Urine sed) [#/Area] Few Abnormal None Seen, Rare /lpf [facility] Nitrite Auto test strip Ql (U) Negative Negative [facility] pH (U) 5.0 [pH] [facility] Protein (U) [Mass/Vol] Negative Negative mg/dL [facility] RBC Auto (Urine sed) [#/Area] 2 [facility] Specific gravity (U) [Rel density] 1.029 High [facility] Transitional cells Computer assisted (U) [#/Area] <1 [facility] Urobilinogen (U) [Mass/Vol] 2.0 mg/dL Abnormal <2.0 [facility] WBC Auto (Urine sed) [#/Area] 2 [facility] Microscopic examinat ion is performed on all urinalysis samples and only positive findings are reported. The test for blood on the chemical analytic portion of urinalysis may also be positive due to hemoglobinuria and myoglobinuria and if red blood cells are present they are quantified by microscopic examination. [facility] Urine Pregnancyon 03-11-2019 HCG ( test) Ql (U) Negative Negative [facility] Interpretation and review of laboratory results Normal [facility] Alcohol, Medicalon 9 Ethanol [Mass/Vol] mg/dL <10.00 mg/dL [facility] Interpretation and review of laboratory results Normal [facility] DRUGS OF ABUSE SCREEN, URINE on 02-10-2019 Amphetamines Ql (U) None Detected None Detected [facility] Comment on above: Urine Amphetamine Cu toff: < 1000 ng/mL = None Detected Barbiturates Screen Ql (U) None Detected None Detected [facility] Comment on above: Urine Barbiturates C utoff: < 200 ng/mL = None Detected Benzodiazepines Ql (U) None Detected None Detected [facility] Comment on above: Urine Benzodiazepine Cutoff: < 200 ng/mL = None Detected Cannabinoids Screen Ql (U) None Detected None Detected [facility] Comment on above: Urine Cannabinoids C utoff: < 50 ng/mL = None Detected Cocaine Ql (U) None Detected None Detected [facility] Comment on above: Urine Cocaine Cutoff : < 300 ng/mL = None Detected Interpretation and review of laboratory results Normal [facility] Methadone Screen Ql (U) None Detected None Detected [facility] Comment on above: Urine Methadone Cuto ff: < 300 ng/mL = None Detected Opiates Screen Ql (U) None Detected None Detected [facility] Comment on above: Urine Opiates Cutoff : < 300 ng/mL = None Detected Oxycodone Ql (U) None Detected None Detected [facility] Comment on above: Urine Oxycodone Cuto ff: < 100 ng/mL = None Detected Screen results shoul d be used for treatment purposes only. [facility] Otheron 02-10-2019 Extra Tube Hold for add-ons. [facility] Comment on above: Auto resulted. Urine Pregnancyon 02-10-2019 HCG ( test) Ql (U) Negative Negative [facility] Interpretation and review of laboratory results Normal [facility] Hemoglobin A1con 01-01-2019 HbA1c (Bld) [Mass fraction] 7.1 % High 4.3-5.6 [facility] Comment on above: Performed By: #### H BA #### [facility] Routine Lab [address], [place] [address] HbA1c (Bld) [Mass fraction] 157 mg/dL Normal [facility] Comment on above: Performed By: #### H BA1C #### [facility] Routine Lab [address] [place], [place] [address] URINALYSISon 10-07-2018 Bacteria Auto Ql (U) Rare Abnormal None Se en /hpf [facility] Bilirubin Ql (U) Negative Negative [facility] th Clarity Refractometry automated (U) Hazy Abnormal Clear [facility] Color (U) Yellow Colorless, Yellow [facility] Epithelial cells.squamous Auto (Urine sed) [#/Area] 8 High [facility] Glucose Auto test strip (U) [Mass/Vol] 150 Abnormal Negative mg/dL [facility] Hemoglobin Auto test strip Ql (U) Negative Negative [facility] Interpretation and review of laboratory results Abnormal [facility] Ketones (U) [Mass/Vol] >=80 Abnormal Negative mg/dL [facility] Leukocyte esterase Auto test strip Ql (U) Small Abnormal Negative [facility] Nitrite Auto test strip Ql (U) Negative Negative [facility] pH (U) 5.0 [pH] [facility] Protein (U) [Mass/Vol] Negative Negative mg/dL [facility] RBC Auto (Urine sed) [#/Area] 2 [facility] Specific gravity (U) [Rel density] 1.014 [facility] Urobilinogen (U) [Mass/Vol] <2.0 <2.0 mg/dL [facility] WBC Auto (Urine sed) [#/Area] 17 High [facility] Microscopic examinat ion is performed on all urinalysis samples and only positive findings are reported. The test for blood on the chemical analytic portion of urinalysis may also be positive due to hemoglobinuria and myoglobinuria and if red blood cells are present they are quantified by microscopic examination. [facility] Urine Pregnancyon 10-07-2018 HCG ( test) Ql (U) Negative Negative [facility] Interpretation and review of laboratory results Normal [facility] XR CHEST AP/PA AND LATon Cholesterol [Mass/Vol] 1. No acute cardiopulmonary process. 2. Cholecystectomy. [facility] Workstation ID: [id number] [facility] EXAMINATION: XR CHES T AP/PA AND [...] abnormality noted. The gallbladder is surgically absent. [facility], Rad In [facility] - 10/07/2018 2:37 AM EDT EXAMINATION: XR [...] 1. No acute cardiopulmonary process. 2. Cholecystectomy. [facility] Workstation ID: [id number] [facility] POC Glucoseon 10-06-2018 Glucose [Mass/Vol] 228 mg/dL High 65 - 99 mg/dL [facility] Interpretation and review of laboratory results Abnormal [facility] POC Glucoseon 10-05-2018 Glucose [Mass/Vol] 338 mg/dL High 65 - 99 mg/dL [facility] Interpretation and review of laboratory results Abnormal [facility] Glucose [Mass/Vol] 383 mg/dL High 65 - 99 mg/dL [facility] Interpretation and review of laboratory results Abnormal [facility] XR CHEST AP/PA AND LATon No acute cardiopulmonary disease. [facility]/c Workstation ID: [id number] [facility] CLINICAL HISTORY: Shortness of breath. EXAMINATION: PA AND LATERAL CHEST: 10/04/2018. COMPARISON: PA and lateral chest 03/29/2016. FINDINGS: Two views in 3 films are provided which demonstrate there is some motion artifact on the AP view chest. The visualized osseous structures, heart, mediastinum are normal. The aorta has normal contour. Lungs appear clear. There is no congestive heart failure or pneumothorax. [facility], Rad In [facility] - 10/05/2018 1:48 AM EDT CLINICAL HISTORY: [...] or pneumothorax. IMPRESSION: No acute cardiopulmonary disease. [facility] Workstation ID: [id number] [facility] Beta-Hydroxybutyrateon 10-04 Beta hydroxybutyrate [Moles/Vol] 0.2 mmol/L 0 - 0.3 mmol/L [facility] Interpretation and review of laboratory results Normal [facility] CBC WITH AUTO DIFFERENTIALon 10-04-2018 Basophils (Bld) [#/Vol] 0.04 10*3/uL [facility] Basophils/100 WBC (Bld) 0.4 % [facility] Eosinophils (Bld) [#/Vol] 0.23 10*3/uL [facility] Eosinophils/100 WBC (Bld) 2.6 % [facility] Erythrocyte distribution width (RBC) [Entitic vol] 12.2 % 11.6 - 14.8 % [facility] Hematocrit (Bld) [Volume fraction] 42.3 % 36 - 46 % [facility] Hemoglobin (Bld) [Mass/Vol] 14.5 g/dL 12 - 16 g/dL [facility] Immature granulocytes (Bld) [#/Vol] 0.03 10*3/uL [facility] Immature granulocytes/100 WBC (Bld) 0.30 % [facility] Comment on above: The IG parameter is the percentage of metamyelocytes, myelocytes, and promyelocytes. Lymphocytes (Bld) [#/Vol] 1.76 10*3/uL [facility] Lymphocytes/100 WBC (Bld) 19.8 % [facility] MCH (RBC) [Entitic mass] 28.3 pg 26 - 34 pg [facility] MCHC (RBC) [Mass/Vol] 34.3 g/dL 31 - 37 g/dL [facility] MCV (RBC) [Entitic vol] 82.6 fL 80 - 100 fL [facility] Monocytes (Bld) [#/Vol] 0.47 10*3/uL [facility] Monocytes/100 WBC (Bld) 5.3 % [facility] Neutrophils (Bld) [#/Vol] 6.37 10*3/uL [facility] Neutrophils/100 WBC (Bld) 71.6 % [facility] Nucleated RBC (Bld) [#/Vol] 0.00 10*3/uL [facility] Nucleated RBC/100 WBC (Bld) [Ratio] 0.0 % [facility] Platelet mean volume (Bld) [Entitic vol] 10.4 fL 9 - 15.5 fL [facility] [facility] Platelets (Bld) [#/Vol] 248 10*3/uL [facility] RBC (Bld) [#/Vol] 5.12 10*6/uL [facility] WBC (Bld) [#/Vol] 8.90 10*3/uL [facility] Comprehensive Metabolic Pane saleem 10-04-2018 Albumin [Mass/Vol] 4.0 g/dL 3.2 - 5.2 g/dL [facility] ALP [Catalytic activity/Vol] 90 U/L 40 - 140 U/L [facility] ALT [Catalytic activity/Vol] 28 U/L 14 - 65 U/L [facility] Anion gap [Moles/Vol] 12 mmol/L 10 - 2 0 mmol/L [facility] AST [Catalytic activity/Vol] 14 U/L 0 - 45 U/L [facility] Bilirubin [Mass/Vol] 0.3 mg/dL 0 - 1.3 mg/dL [facility] Calcium [Mass/Vol] 9.0 mg/dL 8.4 - 10. 2 mg/dL [facility] Chloride [Moles/Vol] 102 mmol/L 98 - 10 8 mmol/L [facility] Creatinine [Mass/Vol] 0.86 mg/dL 0.4 - 1.1 mg/dL [facility] GFR/1.73 sq M predicted among non-blacks MDRD (S/P/Bld) [Vol rate/Area] The eGFR should be used for monitoring renal function only and not for medication dosing. [facility] GFR/1.73 sq M.predicted CKD-EPI (S/P/Bld) [Vol rate/Area] 96 >=60 mL/min/1.73 m2 [facility] Glucose [Mass/Vol] 460 mg/dL Critically high 65 - 9 9 mg/dL [facility] HCO3 [Moles/Vol] 26 mmol/L 21 - 32 mmol/L [facility] Potassium [Moles/Vol] 4.1 mmol/L 3.5 - 5.1 mmol/L [facility] Protein [Mass/Vol] 8.0 g/dL 6 - 8 g/dL [facility] Sodium [Moles/Vol] 136 mmol/L 135 - 145 mmol/L [facility] Urea nitrogen [Mass/Vol] 14 mg/dL 8 - 25 mg/dL [facility] Urea nitrogen/Creatinine [Mass ratio] 16.3 mg/mg [facility] D-DIMER, QUANTITATIVEon 09-08 Fibrin D-dimer FEU (PPP) [Mass/Vol] 0.31 0.27 - 0.49 mcg/mL FEU [facility] Interpretation and review of laboratory results Normal [facility] A D-dimer concentrat ion of <0.5 micrograms per milliliter FEU is considered a low probability for pulmonary embolus (PE) and deep venous thrombosis (DVT). Results of this test should always be interpreted in conjunction with the patient's medical history,clinical presentation, and other findings. Clinical diagnosis should not be based on the results of the D-dimer alone. [facility] Otheron 10-04-2018 Extra Tube Hold for add-ons. [facility] Comment on above: Auto resulted. Interpretation and review of laboratory results Abnormal [facility] POC ARTERIAL BLOOD GAS PANEL -PULM - RALSon 10-04-2018 Alveolar-arterial oxygen Partial pressure difference 16.2 mm Hg [facility] Base excess Calc (Bld) [Moles/Vol] -0.9 mmol/L [facility] Breath rate setting Ventilator synchronized intermittent mandatory 0 [facility] CO2 (Bld) [Partial pressure] 39.4 mm[Hg] [facility] HCO3 (Bld) [Moles/Vol] 24.0 mmol/L 22 - 26 mmol/L [facility] Hematocrit (BldA) [Volume fraction] 44.4 % 36 - 46 % [facility] Hemoglobin (Bld) [Mass/Vol] 14.5 g/dL 12 - 16 g/dL [facility] Inhaled oxygen concentration 21 % [facility] Oxygen (Bld) [Partial pressure] 83 mm[Hg] [facility] pH (Bld) 7.39 [pH] [facility] SaO2% (BldA) [Mass fraction] 96.8 % 92 - 99 % [facility] Specimen source Nom (Unsp spec) Brachial, right [facility] Tidal volume setting Ventilator 0 [facility] POC Glucoseon 10-04-2018 Glucose [Mass/Vol] 377 mg/dL High 65 - 99 mg/dL [facility] Interpretation and review of laboratory results Abnormal [facility] Glucose [Mass/Vol] 442 mg/dL Critically high 65 - 9 9 mg/dL [facility] Interpretation and review of laboratory results Abnormal [facility] Critical result acte d upon time of test. Test performed at bedside. [facility] URINALYSISon 10-04-2018 Bacteria Auto Ql (U) None Seen None Se en /hpf [facility] Bilirubin Ql (U) Negative Negative [facility] Clarity Refractometry automated (U) Clear Clear [facility] Color (U) Colorless Colorless, Yellow [facility] Epithelial cells.squamous Auto (Urine sed) [#/Area] 4 [facility] Glucose Auto test strip (U) [Mass/Vol] >=500 Abnormal Negative mg/dL [facility] Hemoglobin Auto test strip Ql (U) Negative Negative [facility] Ketones (U) [Mass/Vol] Negative Negative mg/dL [facility] Leukocyte esterase Auto test strip Ql (U) Negative Negative [facility] Nitrite Auto test strip Ql (U) Negative Negative [facility] pH (U) 7.0 [pH] [facility] Protein (U) [Mass/Vol] Negative Negative mg/dL [facility] RBC Auto (Urine sed) [#/Area] <1 [facility] Specific gravity (U) [Rel density] 1.018 [facility] Urobilinogen (U) [Mass/Vol] <2.0 <2.0 mg/dL [facility] WBC Auto (Urine sed) [#/Area] 1 [facility] Microscopic examinat ion is performed on all urinalysis samples and only positive findings are reported. The test for blood on the chemical analytic portion of urinalysis may also be positive due to hemoglobinuria and myoglobinuria and if red blood cells are present they are quantified by microscopic examination. [facility] Urine Pregnancyon 10-04-2018 HCG ( test) Ql (U) Negative Negative [facility] Interpretation and review of laboratory results Normal [facility] BETA HCG, QUANT, BLOODon HCG.beta subunit Qn 0.00 m[IU]/mL MIU/ML [facility] Comment on above: [facility] INTERPRETIVE RANGES: NON FEMALE 0-6 MIU/ML MALE [...] PLATELETon 2018 ABSOLUTE BASOPHIL COUNT 0.1 X10 [facility] Basophils/100 WBC (Bld) 0.6 % 0 - 2 % [facility] Differential cell count method Nom (Bld) AUTO DIFF % [facility] Eosinophils #/vol (Bld) 0.30 10*3/uL X10 [facility] Eosinophils/100 WBC (Bld) 3.9 % 0 - 11 % [facility] Erythrocyte distribution width Ratio (RBC) 12.9 % 11.5 - 14.5 % [facility] Hematocrit Volume Fraction (Bld) 44.2 % 36 - 48 % [facility] Hemoglobin mass conc (Bld) 15.7 g/dL [facility] Lymphocytes #/vol (Bld) 3.30 10*3/uL X10 [facility] Lymphocytes/100 WBC (Bld) 36.9 % 20 - 55 % [facility] MCH Entitic mass (RBC) 29.1 pg 26 - 35 PG [facility] MCHC mass conc (RBC) 35.5 g/dL [facility] MCV Entitic volume (RBC) 82.2 fL [facility] Monocytes #/vol (Bld) 0.5 10*3/uL X10 [facility] Monocytes/100 WBC (Bld) 5.5 % 0 - 10 % [facility] Neutrophils #/vol (Bld) 4.7 10*3/uL [facility] Neutrophils/100 WBC (Bld) 53.1 % 37 - 75 % [facility] Platelet mean volume Entitic volume (Bld) 8.0 fL [facility] Platelets #/vol (Bld) 272 10*3/uL [facility] RBC #/vol (Bld) 5.38 10*6/uL [facility] WBC #/vol (Bld) 8.9 10*3/uL [facility] COMPREHENSIVE METABOLIC PANE Saleem 09-12-2018 Albumin mass conc 4.4 G/dl 3.5 - 5 G/dl [facility] Albumin/Globulin mass ratio 1.3 {ratio} [facility] ALP enzyme act/vol 77 U/L [facility] ALT enzyme act/vol 29 U/L [facility] AST enzyme act/vol 19 U/L [facility] Bilirubin mass conc 0.7 mg/dL [facility] Calcium mass conc 9.2 mg/dL [facility] Chloride molar conc 102 mmol/L [facility] CO2 molar conc 23 mmol/L [facility] Creatinine mass conc 0.6 mg/dL [facility] GFR/1.73 sq M predicted among blacks MDRD vol rate/area (S/P/Bld) mL/min/{1.73_m2} ml/min/1.73s q.m [facility] GFR/1.73 sq M predicted among non-blacks MDRD vol rate/area (S/P/Bld) mL/min/{1.73_m2} ml/min/1.73s q.m [facility] GFR/1.73 sq M predicted among non-blacks MDRD vol rate/area (S/P/Bld) Average GFR for 20-29 years old = 116. [facility] Comment on above: Chronic Kidney disea se, GFR = <60. Kidney failure, GFR = <15. The GFR estimate is not adjusted for extreme body surface area or acute process, nor has it been validated for women or ethnic groups other than and . Glucose fasting mass conc 301 mg/dL High [facility] Comment on above: NORMAL <100 mg/dL PREDIABETES 101-126 mg/dL DIABETES 126 mg/dL or higher Interpretation and review of laboratory results Abnormal [facility] Potassium molar conc 3.7 mmol/L [facility] Protein mass conc 7.8 g/dL [facility] Sodium molar conc 135 mmol/L Low [facility] Urea nitrogen mass conc 17 mg/dL [facility] HCG QUALITATIVE, URINEon HCG ( test) Ql (U) Negative NEGATIVE [facility] POCT GLUCOSEon 09-12-2018 Glucose mass conc 247 mg/dL Abnormal 70 - 99 mg/dL [facility] Interpretation and review of laboratory results Abnormal [facility] URINALYSIS, MACROon 09-13-19 19 Bilirubin Ql (U) Negative NEGATIVE [facility] Clarity Nom (U) CLEAR CLEAR [facility] Color Nom (U) YELLOW YELLOW [facility] H Glucose Test strip mass conc (U) 500 mg/dl Abnormal NEGATIVE [facility] Hemoglobin Ql (U) Negative NEGATIVE [facility] Interpretation and review of laboratory results Abnormal [facility] Ketones mass conc (U) 15 mg/dl Abnormal NEGATIVE [facility] Leukocyte esterase Test strip Ql (U) Negative NEGATIVE [facility] Nitrite Ql (U) Negative NEGATIVE [facility] TH pH (U) 5.5 [pH] [facility] Protein Ql (U) Negative NEGATIVE mg/dl [facility] Specific gravity Relative Density (U) 1.020 [facility] H Urobilinogen mass conc (U) 0.2 mg/dl 0.2 - 1 mg/dl [facility] URINE MICROSCOPICon 09-13-19 19 Bacteria LM.HPF #/area (Urine sed) Negative NEGATIVE [facility] Casts LM.LPF #/area (Urine sed) NONE NONE /LPF [facility] Crystals LM Nom (Urine sed) NONE NONE [facility] Epithelial cells LM Ql (Urine sed) 5 TO 10 /HPF [facility] Mucus Ql (Urine sed) Negative NEGATIVE [facility] RBC LM.HPF #/area (Urine sed) Negative NEGATIVE /HPF [facility] Urine sediment comments LM Jorge (Urine sed) CULTURE CRITERIA NOT MET, NO CULTURE PERFORMED. [facility] WBC LM.HPF #/area (Urine sed) Negative NEGATIVE /HPF [facility] Beta Hydroxybutyrateon 07-16 Beta Hydroxybutyrate 0.2 mmol/L Normal 0.00-0.30 [facility] Comment on above: Performed By: #### C BCDIF, HCGQT, LIPASE, CMET, BHBA #### Unless otherwise noted, all testing performed by [place] [address] CLIA: [id number] [facility]: Cristofer Orlando, M.D. CBC with Diffon 07-16-2018 Basophils #/vol (Bld) 0.1 K/mcL Normal 0-0.2 [facility] Comment on above: Performed By: #### C BCDIF, HCGQT, LIPASE, CMET, BHBA #### Unless otherwise noted, all testing performed by [place] [address] CLIA: [id number] [facility]: Cristofer Perry M.D. Basophils/100 WBC (Bld) 1.0 % Normal [facility] Comment on above: Performed By: #### C BCDIF, HCGQT, LIPASE, CMET, BHBA #### Unless otherwise noted, all testing performed by [place] [address] CLIA: [id number] [facility]: Cristofer Perry M.D. Eosinophils #/vol (Bld) 0.1 K/mcL Normal 0-0.5 [facility] Comment on above: Performed By: #### C BCDIF, HCGQT, LIPASE, CMET, BHBA #### Unless otherwise noted, all testing performed by [place] [address] CLIA: [id number] [facility]: Cristofer Perry M.D. Eosinophils/100 WBC (Bld) 1.1 % Normal [facility] Comment on above: Performed By: #### C BCDIF, HCGQT, LIPASE, CMET, BHBA #### Unless otherwise noted, all testing performed by [place] [address] CLIA: [id number] [facility]: Cristofer Perry M.D. Erythrocyte distribution width Ratio (RBC) 13.6 % Normal 10.0-14.4 [facility] Comment on above: Performed By: #### C BCDIF, HCGQT, LIPASE, CMET, BHBA #### Unless otherwise noted, all testing performed by [place] [address] CLIA: [id number] [facility]: Cristofer Perry M.D. Hematocrit Volume Fraction (Bld) 47.6 % High 34.4-44.8 [facility] Comment on above: Performed By: #### C BCDIF, HCGQT, LIPASE, CMET, BHBA #### Unless otherwise noted, all testing performed by [place] [address] CLIA: [id number] [facility]anger: Cristofer Perry M.D. Hemoglobin mass conc (Bld) 16.3 g/dL High 11.6-15.4 [facility] Comment on above: Performed By: #### C BCDIF, HCGQT, LIPASE, CMET, BHBA #### Unless otherwise noted, all testing performed by [place] [address] CLIA: [id number] [facility]: Cristofer Perry M.D. Lymphocytes #/vol (Bld) 2.3 K/mcL Normal 1.0-3.7 [facility] Comment on above: Performed By: #### C BCDIF, HCGQT, LIPASE, CMET, BHBA #### Unless otherwise noted, all testing performed by [place] [address] CLIA: [id number] [facility]anger: Cristofer Perry M.D. Lymphocytes/100 WBC (Bld) 29.8 % Normal [facility] Comment on above: Performed By: #### C BCDIF, HCGQT, LIPASE, CMET, BHBA #### Unless otherwise noted, all testing performed by [place] [address] CLIA: [id number] [facility]anger: Cristofer Perry M.D. MCH Entitic mass (RBC) 27.5 pg Low 27.9-33.9 [facility] Comment on above: Performed By: #### C BCDIF, HCGQT, LIPASE, CMET, BHBA #### Unless otherwise noted, all testing performed by [place] [address] CLIA: [id number] [facility]anger: Cristofer Perry M.D. MCHC mass conc (RBC) 34.1 g/dL Normal 33.1-35.1 [facility] Comment on above: Performed By: #### C BCDIF, HCGQT, LIPASE, CMET, BHBA #### Unless otherwise noted, all testing performed by [place] [address] CLIA: [id number] [facility]anger: Cristofer Perry M.D. MCV Entitic volume (RBC) 80.7 fL Low 82.6-98.9 [facility] Comment on above: Performed By: #### C BCDIF, HCGQT, LIPASE, CMET, BHBA #### Unless otherwise noted, all testing performed by [place] [address] CLIA: [id number] [facility]: Cristofer Perry M.D. Monocytes #/vol (Bld) 0.5 K/mcL Normal 0.1-0.6 [facility] Comment on above: Performed By: #### C BCDIF, HCGQT, LIPASE, CMET, BHBA #### Unless otherwise noted, all testing performed by [place] [address] CLIA: [id number] [facility]anger: Cristofer Perry M.D. Monocytes/100 WBC (Bld) 6.3 % Normal [facility] Comment on above: Performed By: #### C BCDIF, HCGQT, LIPASE, CMET, BHBA #### Unless otherwise noted, all testing performed by [place] [address] CLIA: [id number] [facility]anger: Cristofer Perry M.D. Neutrophils #/vol (Bld) 4.7 K/mcL Normal 1.2-6.9 [facility] Comment on above: Performed By: #### C BCDIF, HCGQT, LIPASE, CMET, BHBA #### Unless otherwise noted, all testing performed by [place] [address] CLIA: [id number] [facility]: Cristofer Perry M.D. Platelet mean volume Entitic volume (Bld) 8.3 fL Normal 7.0-10.6 [facility] Comment on above: Performed By: #### C BCDIF, HCGQT, LIPASE, CMET, BHBA #### Unless otherwise noted, all testing performed by [place] [address] CLIA: [id number] [facility]: Cristofer Perry M.D. Platelets #/vol (Bld) 243 K/mcL Normal 162-402 [facility] Comment on above: Performed By: #### C BCDIF, HCGQT, LIPASE, CMET, BHBA #### Unless otherwise noted, all testing performed by [place] [address] CLIA: [id number] [facility]anger: Cristofer Perry M.D. RBC #/vol (Bld) 5.90 M/mcL High 3.7-5.0 [facility] Comment on above: Performed By: #### C BCDIF, HCGQT, LIPASE, CMET, BHBA #### Unless otherwise noted, all testing performed by [place] [address] CLIA: [id number] [facility]: Cristofer Perry M.D. Segmented Neut % 61.8 % Normal [facility] Comment on above: Performed By: #### C BCDIF, HCGQT, LIPASE, CMET, BHBA #### Unless otherwise noted, all testing performed by [place] [phone] CLIA: [id number] [facility]anger: Cristofer Perry M.D. WBC #/vol (Bld) 7.6 K/mcL Normal 3.4-10.6 [facility] Comment on above: Performed By: #### C BCDIF, HCGQT, LIPASE, CMET, BHBA #### Unless otherwise noted, all testing performed by [place] [address] CLIA: [id number] [facility]: Cristofer Perry M.D. CT ABDO,PELVIS IV CONTRAST O FIDELYon 07-16-2018 CT ABDO,PELVIS IV CONTRAST ONLY Final Report Accession No: [id number] Performed: Jul 16 2018 4:33PM Examination: [...] dcarr : cc: Normal [facility] Comprehensive Metabolic Pane saleem 07-16-2018 Albumin mass conc 4.2 g/dL Normal 3.2-5.2 [facility] Comment on above: Performed By: #### C BCDIF, HCGQT, LIPASE, CMET, BHBA #### Unless otherwise noted, all testing performed by [place] [address] CLIA: [id number] [facility]: Cristofer Perry M.D. ALP enzyme act/vol 113 U/L Normal 40-140 [facility] Comment on above: Performed By: #### C BCDIF, HCGQT, LIPASE, CMET, BHBA #### Unless otherwise noted, all testing performed by [place] [address] CLIA: [id number] [facility]anger: Cristofer Perry M.D. ALT enzyme act/vol 39 U/L Normal 14-65 [facility] Comment on above: Result Comment: This test result might be falsely depressed or falsely elevated on samples drawn from patients taking Sulfasalazine and Sulfapyridine. Venipuncture should occur prior to taking either of these drugs. Performed By: #### C BCDIF, HCGQT, LIPASE, CMET, BHBA #### Unless otherwise noted, all testing performed by [place] [id number] CLIA: [id number] Hanger: Cristofer Perry M.D. AST enzyme act/vol 12 U/L Normal 0-45 [facility] Comment on above: Result Comment: This test result might be falsely depressed or falsely elevated on samples drawn from patients taking Sulfasalazine and Sulfapyridine. Venipuncture should occur prior to taking either of these drugs. Performed By: #### C BCDIF, HCGQT, LIPASE, CMET, BHBA #### Unless otherwise noted, all testing performed by [place] [address] CLIA: [id number] [facility]: Cristofer Perry M.D. Bilirubin mass conc 0.7 mg/dL Normal 0.3-1.2 [facility] Comment on above: Performed By: #### C BCDIF, HCGQT, LIPASE, CMET, BHBA #### Unless otherwise noted, all testing performed by [place] [address] CLIA: [id number] [facility]: Cristofer Perry M.D. Calcium mass conc 9.7 mg/dL Normal 8.4-10.2 [facility] Comment on above: Performed By: #### C BCDIF, HCGQT, LIPASE, CMET, BHBA #### Unless otherwise noted, all testing performed by [place] [address] CLIA: [id number] [facility]anger: Cristofer Perry M.D. Chloride molar conc 103 mmol/L Normal 98-108 [facility] Comment on above: Performed By: #### C BCDIF, HCGQT, LIPASE, CMET, BHBA #### Unless otherwise noted, all testing performed by [place] [address] CLIA: [id number] [facility]: Cristofer Perry M.D. CO2 molar conc 25 mmol/L Normal 21-32 [facility] Comment on above: Performed By: #### C BCDIF, HCGQT, LIPASE, CMET, BHBA #### Unless otherwise noted, all testing performed by [place] [address] CLIA: [id number] [facility]: Cristofer Perry M.D. Creatinine mass conc 0.90 mg/dL Normal 0.40-1.10 [facility] Comment on above: Performed By: #### C BCDIF, HCGQT, LIPASE, CMET, BHBA #### Unless otherwise noted, all testing performed by [place] [address] CLIA: [id number] [facility]: Cristofer Perry M.D. GFR/1.73 sq M predicted among blacks MDRD vol rate/area (S/P/Bld) mL/min/{1.73_m2} [facility] Comment on above: Result Comment: Afri can [place] GFR Calc Performed By: #### C BCDIF, HCGQT, LIPASE, CMET, BHBA #### Unless otherwise noted, all testing performed by [place] [address] CLIA: [id number] [facility]anger: Cristofer Perry M.D. GFR/1.73 sq M predicted among non-blacks MDRD vol rate/area (S/P/Bld) mL/min/{1.73_m2} [facility] Comment on above: Result Comment: Non- [...] Unless otherwise noted, all testing performed by [place] [address] CLIA: [id number] [facility]anger: Cristofer Perry M.D. Glucose mass conc 367 mg/dL High 70-99 [facility] Comment on above: Result Comment: This test result might be falsely depressed or falsely elevated on samples drawn from patients taking Sulfasalazine and Sulfapyridine. Venipuncture should occur prior to taking either of these drugs. Performed By: #### C BCDIF, HCGQT, LIPASE, CMET, BHBA #### Unless otherwise noted, all testing performed by [place] [address] CLIA: [id number] [facility]anger: Cristofer Perry M.D. Potassium molar conc 3.6 mmol/L Normal 3.5-5.1 [facility] Comment on above: Performed By: #### C BCDIF, HCGQT, LIPASE, CMET, BHBA #### Unless otherwise noted, all testing performed by [place] [address] CLIA: [id number] [facility]anger: Cristofer Perry M.D. Protein mass conc 8.4 g/dL High 6.0-8.0 [facility] Comment on above: Performed By: #### C BCDIF, HCGQT, LIPASE, CMET, BHBA #### Unless otherwise noted, all testing performed by [place] [address] CLIA: [id number] [facility]: Cristofer Perry M.D. Sodium molar conc 140 mmol/L Normal 135-145 [facility] Comment on above: Performed By: #### C BCDIF, HCGQT, LIPASE, CMET, BHBA #### Unless otherwise noted, all testing performed by [place] [address] CLIA: [id number] [facility]anger: Cristofer Perry M.D. Urea nitrogen mass conc 7 mg/dL Low 8-25 [facility] Comment on above: Performed By: #### C BCDIF, HCGQT, LIPASE, CMET, BHBA #### Unless otherwise noted, all testing performed by [place] [phone] CLIA: [id number] [facility]: Cristofer Perry M.D. Lipaseon 07-16-2018 Lipase enzyme act/vol 83 U/L Normal 73-393 [facility] Comment on above: Performed By: #### C BCDIF, HCGQT, LIPASE, CMET, BHBA #### Unless otherwise noted, all testing performed by [place] [address] CLIA: [id number] [facility]: Cristofer Perry M.D. Test,Urine Qualon 07-16-2018 HCG.beta subunit ( test) Ql (U) Negative Normal Negative [facility] Comment on above: Result Comment: Rapi [...] Unless otherwise noted, all testing performed by [place] [address] CLIA: [id number] [facility]anger: Cristofer Perry M.D. Urinalysis, Routineon 2018 Bilirubin,Urine Negative Normal NEG;NEGATIVE [facility] Comment on above: Performed By: #### C BCDIF, HCGQT, LIPASE, CMET, BHBA #### Unless otherwise noted, all testing performed by [place] [address] CLIA: [id number] [facility]anger: Cristofer Perry M.D. Blood,Urine Negative Normal NEG;NEGATIVE [facility] Comment on above: Performed By: #### C BCDIF, HCGQT, LIPASE, CMET, BHBA #### Unless otherwise noted, all testing performed by [place] [address] CLIA: [id number] [facility]: Cristofer Perry M.D. Character Nom (U) Hazy Normal [facility] Comment on above: Performed By: #### C BCDIF, HCGQT, LIPASE, CMET, BHBA #### Unless otherwise noted, all testing performed by [place] [address] CLIA: [id number] [facility]anger: Cristofer Perry M.D. Color Nom (U) Yellow Normal [facility] Comment on above: Performed By: #### C BCDIF, HCGQT, LIPASE, CMET, BHBA #### Unless otherwise noted, all testing performed by [place] [address] CLIA: [id number] [facility]: Cristofer Perry M.D. Glucose Ql (U) >= 500 High < 70 [facility] [facility] Comment on above: Performed By: #### C BCDIF, HCGQT, LIPASE, CMET, BHBA #### Unless otherwise noted, all testing performed by [place] [address] CLIA: [id number] Hanger: Cristofer Perry M.D. Ketone,Urine Trace Abnormal NEG;NEGATIVE [facility] Comment on above: Performed By: #### C BCDIF, HCGQT, LIPASE, CMET, BHBA #### Unless otherwise noted, all testing performed by [place] [phone] CLIA: [id number] Hanger: Cristofer Perry M.D. Leuk.Esterase,Urine Trace Abnormal Negative [facility] Comment on above: Performed By: #### C BCDIF, HCGQT, LIPASE, CMET, BHBA #### Unless otherwise noted, all testing performed by [place] [phone] CLIA: [id number] Hanger: Cristofer Perry M.D. Nitrite,Urine Negative Normal NEG;NEGATIVE [facility] Comment on above: Performed By: #### C BCDIF, HCGQT, LIPASE, CMET, BHBA #### Unless otherwise noted, all testing performed by [place] [phone] CLIA: [id number] Hanger: Cristofer Perry M.D. pH (U) 6.0 [pH] Normal 4.5-8.0 [facility] Comment on above: Performed By: #### C BCDIF, HCGQT, LIPASE, CMET, BHBA #### Unless otherwise noted, all testing performed by [place] [address] CLIA: [id number] Hanger: Cristofer Perry M.D. Protein mass conc (U) Negative Normal NEG;NEGATIVE [facility] Comment on above: Performed By: #### C BCDIF, HCGQT, LIPASE, CMET, BHBA #### Unless otherwise noted, all testing performed by [place] [phone] CLIA: [id number] Hanger: Cristofer Perry M.D. RBC LM.HPF #/area (Urine sed) /[HPF] Normal 0-5 [facility] Comment on above: Performed By: #### C BCDIF, HCGQT, LIPASE, CMET, BHBA #### Unless otherwise noted, all testing performed by [place] [phone] CLIA: [id number] Hanger: Cristofer Perry M.D. Specific [place],Urine 1.036 High 1.003-1.029 [facility] Comment on above: Performed By: #### C BCDIF, HCGQT, LIPASE, CMET, BHBA #### Unless otherwise noted, all testing performed by [place] [address] CLIA: [id number] Hanger: Cristofer Perry M.D. Squamous Epithelial 4 /HPF Normal 0-40 [facility] Comment on above: Performed By: #### C BCDIF, HCGQT, LIPASE, CMET, BHBA #### Unless otherwise noted, all testing performed by [address] [place], [place] [address] CLIA: [id number] Hanger: Cristofer Perry M.D. Urobilinogen,Urine < 2.0 Normal <2 [facility] Comment on above: Result Comment: Urob ilinogen, Urine Reference Range: <2.0 mg/dL Performed By: #### C BCDIF, HCGQT, LIPASE, CMET, BHBA #### Unless otherwise noted, all testing performed by [place] [address] CLIA: [id number] Hanger: Cristofer Perry M.D. WBC,Urine 3 /HPF Normal 0-5 [facility] Comment on above: Performed By: #### C BCDIF, HCGQT, LIPASE, CMET, BHBA #### Unless otherwise noted, all testing performed by [place] [address] CLIA: [id number] Hanger: Cristofer Perry M.D. Glucose, POCon 02-02-2018 Glucose mass conc 183 mg/dL High 70-105 [facility] Comment on above: Performed By: #### G LUX #### Unless otherwise noted, all testing performed by [place] [address] CLIA: [id number] Hanger: Cristofer Perry M.D. Beta Hydroxybutyrateon 02-01 Beta Hydroxybutyrate 0.1 mmol/L Normal 0.00-0.30 [facility] Comment on above: Performed By: #### C BCDIF, HCGQT, LIPASE, CMET, BHBA #### Unless otherwise noted, all testing performed by [place] [address] CLIA: [id number] Hanger: Cristofer Perry M.D. CBC with Diffon 02-01-2018 Basophils #/vol (Bld) 0.0 K/mcL Normal 0-0.2 [facility] Comment on above: Performed By: #### C BCDIF, HCGQT, LIPASE, CMET, BHBA #### Unless otherwise noted, all testing performed by [place] [phone] CLIA: [id number] Hanger: Cristofer Perry M.D. Basophils/100 WBC (Bld) 0.6 % Normal [facility] Comment on above: Performed By: #### C BCDIF, HCGQT, LIPASE, CMET, BHBA #### Unless otherwise noted, all testing performed by [place] [phone] CLIA: [id number] Hanger: Cristofer Perry M.D. Eosinophils #/vol (Bld) 0.1 K/mcL Normal 0-0.5 [facility] Comment on above: Performed By: #### C BCDIF, HCGQT, LIPASE, CMET, BHBA #### Unless otherwise noted, all testing performed by [place] [phone] CLIA: [id number] Hanger: Cristofer Perry M.D. Eosinophils/100 WBC (Bld) 1.9 % Normal [facility] Comment on above: Performed By: #### C BCDIF, HCGQT, LIPASE, CMET, BHBA #### Unless otherwise noted, all testing performed by [place] [phone] CLIA: [id number] Hanger: Cristofer Perry M.D. Erythrocyte distribution width Ratio (RBC) 14.3 % Normal 10.0-14.4 [facility] Comment on above: Performed By: #### C BCDIF, HCGQT, LIPASE, CMET, BHBA #### Unless otherwise noted, all testing performed by [place] [address] CLIA: [id number] Hanger: Cristofer Perry M.D. Hematocrit Volume Fraction (Bld) 43.7 % Normal 34.4-44.8 [facility] Comment on above: Performed By: #### C BCDIF, HCGQT, LIPASE, CMET, BHBA #### Unless otherwise noted, all testing performed by [place] [address] CLIA: [id number] Hanger: Cristofer Perry M.D. Hemoglobin mass conc (Bld) 15.0 g/dL Normal 11.6-15.4 [facility] Comment on above: Performed By: #### C BCDIF, HCGQT, LIPASE, CMET, BHBA #### Unless otherwise noted, all testing performed by [place] [address] CLIA: [id number] Hanger: Cristofer Perry M.D. Lymphocytes #/vol (Bld) 2.7 K/mcL Normal 1.0-3.7 [facility] Comment on above: Performed By: #### C BCDIF, HCGQT, LIPASE, CMET, BHBA #### Unless otherwise noted, all testing performed by [place] [address] CLIA: [id number] Hanger: Cristofer Perry M.D. Lymphocytes/100 WBC (Bld) 35.0 % Normal [facility] Comment on above: Performed By: #### C BCDIF, HCGQT, LIPASE, CMET, BHBA #### Unless otherwise noted, all testing performed by [place] [address] CLIA: [id number] Hanger: Cristofer Perry M.D. MCH Entitic mass (RBC) 27.5 pg Low 27.9-33.9 [facility] Comment on above: Performed By: #### C BCDIF, HCGQT, LIPASE, CMET, BHBA #### Unless otherwise noted, all testing performed by [place] [address] CLIA: [id number] Hanger: Cristofer Perry M.D. MCHC mass conc (RBC) 34.3 g/dL Normal 33.1-35.1 [facility] Comment on above: Performed By: #### C BCDIF, HCGQT, LIPASE, CMET, BHBA #### Unless otherwise noted, all testing performed by [place] [address] CLIA: [id number] Hanger: Cristofer Perry M.D. MCV Entitic volume (RBC) 80.3 fL Low 82.6-98.9 [facility] Comment on above: Performed By: #### C BCDIF, HCGQT, LIPASE, CMET, BHBA #### Unless otherwise noted, all testing performed by [place] [address] CLIA: [id number] Hanger: Cristofer Perry M.D. Monocytes #/vol (Bld) 0.4 K/mcL Normal 0.1-0.6 [facility] Comment on above: Performed By: #### C BCDIF, HCGQT, LIPASE, CMET, BHBA #### Unless otherwise noted, all testing performed by [place] [address] CLIA: [id number] Hanger: Cristofer Perry M.D. Monocytes/100 WBC (Bld) 4.8 % Normal [facility] Comment on above: Performed By: #### C BCDIF, HCGQT, LIPASE, CMET, BHBA #### Unless otherwise noted, all testing performed by [place] [phone] CLIA: [id number] Hanger: Cristofer Perry M.D. Neutrophils #/vol (Bld) 4.5 K/mcL Normal 1.2-6.9 [facility] Comment on above: Performed By: #### C BCDIF, HCGQT, LIPASE, CMET, BHBA #### Unless otherwise noted, all testing performed by [place] [phone] CLIA: [id number] Hanger: Cristofer Perry M.D. Platelet mean volume Entitic volume (Bld) 7.9 fL Normal 7.0-10.6 [facility] Comment on above: Performed By: #### C BCDIF, HCGQT, LIPASE, CMET, BHBA #### Unless otherwise noted, all testing performed by [place] [address] CLIA: [id number] Hanger: Cristofer Perry M.D. Platelets #/vol (Bld) 274 K/mcL Normal 162-402 [facility] Comment on above: Performed By: #### C BCDIF, HCGQT, LIPASE, CMET, BHBA #### Unless otherwise noted, all testing performed by [place] [address] CLIA: [id number] Hanger: Cristofer Perry M.D. RBC #/vol (Bld) 5.44 M/mcL High 3.7-5.0 [facility] Comment on above: Performed By: #### C BCDIF, HCGQT, LIPASE, CMET, BHBA #### Unless otherwise noted, all testing performed by [place] [address] CLIA: [id number] Hanger: Cristofer Perry M.D. Segmented Neut % 57.7 % Normal [facility] Comment on above: Performed By: #### C BCDIF, HCGQT, LIPASE, CMET, BHBA #### Unless otherwise noted, all testing performed by [place] [address] CLIA: [id number] Hanger: Cristofer Perry M.D. WBC #/vol (Bld) 7.8 K/mcL Normal 3.4-10.6 [facility] Comment on above: Performed By: #### C BCDIF, HCGQT, LIPASE, CMET, BHBA #### Unless otherwise noted, all testing performed by [place] [address] CLIA: [id number] Hanger: Cristofer Perry M.D. Comprehensive Metabolic Pane [facility] 02-01-2018 Albumin mass conc 3.8 g/dL Normal 3.2-5.2 [facility] Comment on above: Performed By: #### C BCDIF, HCGQT, LIPASE, CMET, BHBA #### Unless otherwise noted, all testing performed by [address] [place], [place] [address] CLIA: [id number] Hanger: Cristofer Perry M.D. ALP enzyme act/vol 86 U/L Normal 40-140 [facility] Comment on above: Performed By: #### C BCDIF, HCGQT, LIPASE, CMET, BHBA #### Unless otherwise noted, all testing performed by [place] [address] CLIA: [id number] Hanger: Cristofer Perry M.D. ALT enzyme act/vol 38 U/L Normal 14-65 [facility] Comment on above: Result Comment: This test result might be falsely depressed or falsely elevated on samples drawn from patients taking Sulfasalazine and Sulfapyridine. Venipuncture should occur prior to taking either of these drugs. Performed By: #### C BCDIF, HCGQT, LIPASE, CMET, BHBA #### Unless otherwise noted, all testing performed by [place] [address] CLIA: [id number] Hanger: Cristofer Perry M.D. AST enzyme act/vol 11 U/L Normal 0-45 [facility] Comment on above: Result Comment: This test result might be falsely depressed or falsely elevated on samples drawn from patients taking Sulfasalazine and Sulfapyridine. Venipuncture should occur prior to taking either of these drugs. Performed By: #### C BCDIF, HCGQT, LIPASE, CMET, BHBA #### Unless otherwise noted, all testing performed by [place] [address] CLIA: [id number] Hanger: Cristofer Perry M.D. Bilirubin mass conc 0.3 mg/dL Normal 0.3-1.2 [facility] Comment on above: Performed By: #### C BCDIF, HCGQT, LIPASE, CMET, BHBA #### Unless otherwise noted, all testing performed by [place] [address] CLIA: [id number] Hanger: Cristofer Perry M.D. Calcium mass conc 9.0 mg/dL Normal 8.4-10.2 [facility] Comment on above: Performed By: #### C BCDIF, HCGQT, LIPASE, CMET, BHBA #### Unless otherwise noted, all testing performed by [place] [address] CLIA: [id number] Hanger: Cristofer Perry M.D. Chloride molar conc 106 mmol/L Normal 98-108 [facility] Comment on above: Performed By: #### C BCDIF, HCGQT, LIPASE, CMET, BHBA #### Unless otherwise noted, all testing performed by [place] [address] CLIA: [id number] Hanger: Cristofer Perry M.D. CO2 molar conc 20 mmol/L Low 21-32 [facility] Comment on above: Performed By: #### C BCDIF, HCGQT, LIPASE, CMET, BHBA #### Unless otherwise noted, all testing performed by [place] [address] CLIA: [id number] Hanger: Cristofer Perry M.D. Creatinine mass conc 0.85 mg/dL Normal 0.40-1.10 [facility] Comment on above: Performed By: #### C BCDIF, HCGQT, LIPASE, CMET, BHBA #### Unless otherwise noted, all testing performed by [place] [address] CLIA: [id number] Hanger: Cristofer Perry M.D. GFR/1.73 sq M predicted among blacks MDRD vol rate/area (S/P/Bld) mL/min/{1.73_m2} Normal [facility] Comment on above: Result Comment: Afri can [place] GFR Calc Performed By: #### C BCDIF, HCGQT, LIPASE, CMET, BHBA #### Unless otherwise noted, all testing performed by [place] [address] CLIA: [id number] Hanger: Cristofer Perry M.D. GFR/1.73 sq M predicted among non-blacks MDRD vol rate/area (S/P/Bld) mL/min/{1.73_m2} [facility] Comment on above: Result Comment: Non- [...] Unless otherwise noted, all testing performed by [place] [address] CLIA: [id number] Hanger: Cristofer Perry M.D. Glucose mass conc 360 mg/dL High 70-99 [facility] Comment on above: Result Comment: This test result might be falsely depressed or falsely elevated on samples drawn from patients taking Sulfasalazine and Sulfapyridine. Venipuncture should occur prior to taking either of these drugs. Performed By: #### C BCDIF, HCGQT, LIPASE, CMET, BHBA #### Unless otherwise noted, all testing performed by [place] [address] CLIA: [id number] Hanger: Cristofer Perry M.D. Potassium molar conc 3.5 mmol/L Normal 3.5-5.1 [facility] Comment on above: Performed By: #### C BCDIF, HCGQT, LIPASE, CMET, BHBA #### Unless otherwise noted, all testing performed by [place] [address] CLIA: [id number] Hanger: Cristofer Perry M.D. Protein mass conc 8.2 g/dL High 6.0-8.0 [facility] Comment on above: Performed By: #### C BCDIF, HCGQT, LIPASE, CMET, BHBA #### Unless otherwise noted, all testing performed by [place] [address] CLIA: [id number] Hanger: Cristofer Perry M.D. Sodium molar conc 137 mmol/L Normal 135-145 [facility] Comment on above: Performed By: #### C BCDIF, HCGQT, LIPASE, CMET, BHBA #### Unless otherwise noted, all testing performed by [place] [address] CLIA: [id number] Hanger: Cristofer Perry M.D. Urea nitrogen mass conc 11 mg/dL Normal 8-25 [facility] Comment on above: Performed By: #### C BCDIF, HCGQT, LIPASE, CMET, BHBA #### Unless otherwise noted, all testing performed by [place] [address] CLIA: [id number] Hanger: Cristofer Perry M.D. Culture, Urineon 02-01-2018 Culture, Urine Test Name: Culture, Urine Culture Status: Final Culture Report: No significant growth. Micro Source: Urine Normal [facility] Comment on above: Performed By: #### C BCDIF, HCGQT, LIPASE, CMET, BHBA #### Unless otherwise noted, all testing performed by [place] [address] CLIA: [id number] Hanger: Cristofer Perry M.D. Culture, Urine Test Name: Culture, Urine Culture Status: Final Culture Report: No Growth - Day 2 Micro Source: Urine Normal [facility] Comment on above: Performed By: #### C BCDIF, HCGQT, LIPASE, CMET, BHBA #### Unless otherwise noted, all testing performed by [place] [address] CLIA: [id number] Hanger: Cristofer Perry M.D. HCG, Quantitativeon 02-02-20 18 HCG, Quantitative 4321 mIU/mL Normal [facility] Comment on above: Result Comment: HCG, Quant. Reference Range: [Units mIU/ml] Gestation Age Approx.HCG 0.2-1Week 5-50 1-2 Weeks 50-500 2-3 Weeks 100-5,000 3-4 Weeks 500-10,000 4-5 Weeks 1,000-50,000 6-8 Weeks 15,000-200,000 2-3 Months 10,000-100,000 Non- Females <5 Males <5 Performed By: #### C BCDIF, HCGQT, LIPASE, CMET, BHBA #### Unless otherwise noted, all testing performed by [place] [address] CLIA: [id number] Hanger: Cristofer Perry M.D. Lipaseon 02-01-2018 Lipase enzyme act/vol 136 U/L Normal 73-393 [facility] Comment on above: Performed By: #### C BCDIF, HCGQT, LIPASE, CMET, BHBA #### Unless otherwise noted, all testing performed by [place] [address] CLIA: [id number] Hanger: Cristofer Perry M.D. Urinalysis, Routineon 2017 Bacteria LM.HPF #/area (Urine sed) Rare Normal NS;RARE [facility] Comment on above: Performed By: #### U A #### Unless otherwise noted, all testing performed by [place] [address] CLIA: [id number] Hanger: Cristofer Perry M.D. Bilirubin,Urine Negative Normal NEG;NEGATIVE [facility] Comment on above: Performed By: #### U A #### Unless otherwise noted, all testing performed by [place] [address] CLIA: [id number] Hanger: Cristofer Perry M.D. Blood,Urine Negative Normal NEG;NEGATIVE [facility] Comment on above: Performed By: #### U A #### Unless otherwise noted, all testing performed by [place] [address] CLIA: [id number] Hanger: Cristofer Perry M.D. Character Nom (U) Clear Normal [facility] Comment on above: Performed By: #### U A #### Unless otherwise noted, all testing performed by [place] [address] CLIA: [id number] Hanger: Cristofer Perry M.D. Color Nom (U) Straw Normal [facility] Comment on above: Performed By: #### U A #### Unless otherwise noted, all testing performed by [place] [address] CLIA: [id number] Hanger: Cristofer Perry M.D. Glucose Ql (U) >= 500 High < 70 [facility] Comment on above: Performed By: #### U A #### Unless otherwise noted, all testing performed by [place] [phone] CLIA: [id number] Hanger: Cristofer Perry M.D. Ketone,Urine Trace Abnormal NEG;NEGATIVE [facility] Comment on above: Performed By: #### U A #### Unless otherwise noted, all testing performed by [place] [phone] CLIA: [id number] Hanger: Cristofer Perry M.D. Leuk.Esterase,Urine Negative Normal Negative [facility] Comment on above: Performed By: #### U A #### Unless otherwise noted, all testing performed by [place] [phone] CLIA: [id number] Hanger: Cristofer Perry M.D. Nitrite,Urine Negative Normal NEG;NEGATIVE [facility] Comment on above: Performed By: #### U A #### Unless otherwise noted, all testing performed by [place] [address] CLIA: [id number] Hanger: Cristofer Perry M.D. pH (U) 5.0 [pH] Normal 4.5-8.0 [facility] Comment on above: Performed By: #### U A #### Unless otherwise noted, all testing performed by [place] [address] CLIA: [id number] Hanger: Cristofer Perry M.D. Protein mass conc (U) Negative Normal NEG;NEGATIVE [facility] Comment on above: Performed By: #### U A #### Unless otherwise noted, all testing performed by [place] [address] CLIA: [id number] Hanger: Cristofer Perry M.D. RBC LM.HPF #/area (Urine sed) /[HPF] Normal 0-5 [facility] Comment on above: Performed By: #### U A #### Unless otherwise noted, all testing performed by [place] [address] CLIA: [id number] Hanger: Cristofer Perry M.D. Specific [place],Urine 1.031 High 1.003-1.029 [facility] Comment on above: Performed By: #### U A #### Unless otherwise noted, all testing performed by [place] [address] CLIA: [id number] Hanger: Cristofer Perry M.D. Squamous Epithelial < 1 Normal 0-40 [facility] Comment on above: Performed By: #### U A #### Unless otherwise noted, all testing performed by [place] [address] CLIA: [id number] Hanger: Cristofer Perry M.D. Urobilinogen,Urine < 2.0 Normal <2 [facility] Comment on above: Performed By: #### U A #### Unless otherwise noted, all testing performed by [place] [address] CLIA: [id number] Hanger: Cristofer Perry M.D. WBC,Urine 1 /HPF Normal 0-5 [facility] Comment on above: Performed By: #### U A #### Unless otherwise noted, all testing performed by [place] [address] CLIA: [id number] Hanger: Cristofer Perry M.D. Venous Blood Gason 8 Allens Test N/A Normal [facility] Comment on above: Performed By: #### V BG #### Unless otherwise noted, all testing performed by [place] [address] CLIA: [id number] Hanger: Cristofer Perry M.D. Base Excess, Venous -3.0 mmol/L Low -2.0-2.0 [facility] Comment on above: Performed By: #### V BG #### Unless otherwise noted, all testing performed by [place] [address] CLIA: [id number] Hanger: Cristofer Perry M.D. Blood Gas Instrument ;ED Normal [facility] Comment on above: Performed By: #### V BG #### Unless otherwise noted, all testing performed by [place] [address] CLIA: [id number] Hanger: Cristofer Perry M.D. Carboxyhemoglobin, Venous 2.3 Normal [facility] Comment on above: Result Comment: Subu rban Non-Smoker <1.5% of total Hgb Smoker 1.5 - 5.0 % of total Hgb Heavy Smoker 5.0 - 9.0 % of total Hgb Performed By: #### V BG #### Unless otherwise noted, all testing performed by [place] [address] CLIA: [id number] Hanger: Cristofer Perry M.D. DeOxyhemoglobin (HHB), Venous < 2.4 Normal [facility] Comment on above: Result Comment: noti fied at Value below reportable range < 2.4 Performed By: #### V BG #### Unless otherwise noted, all testing performed by [place] [phone] CLIA: [id number] Hanger: Cristofer Perry M.D. Drawn By (Bld Gas) lab Normal [facility] Comment on above: Performed By: #### V BG #### Unless otherwise noted, all testing performed by [place] [phone] CLIA: [id number] Hanger: Cristofer Perry M.D. FIO2 21.0 % Normal 21-100 [facility] Comment on above: Performed By: #### V BG #### Unless otherwise noted, all testing performed by [place] [phone] CLIA: [id number] Hanger: Cristofer Perry M.D. Hematocrit Volume Fraction (Bld) 42.4 % Normal 36-46 [facility] Comment on above: Performed By: #### V BG #### Unless otherwise noted, all testing performed by [place] [address] CLIA: [id number] Hanger: Cristofer Perry M.D. Hemoglobin mass conc (Bld) 95.8 % Normal 92-99 [facility] Comment on above: Performed By: #### V BG #### Unless otherwise noted, all testing performed by [place] [address] CLIA: [id number] Hanger: Cristofer Perry M.D. Hemoglobin mass conc (Bld) 13.8 g/dL Normal 12.0-16.0 [facility] Comment on above: Performed By: #### V BG #### Unless otherwise noted, all testing performed by [place] [phone] CLIA: [id number] Hanger: Cristofer Perry M.D. Hemoglobin mass conc (Bld) 99.3 % High 40-70 [facility] Comment on above: Result Comment: Valu e above reference range Performed By: #### V BG #### Unless otherwise noted, all testing performed by [place] [phone] CLIA: [id number] Hanger: Cristofer Perry M.D. Methemoglobin, Venous 1.3 Normal < 2.0 [facility] Comment on above: Performed By: #### V BG #### Unless otherwise noted, all testing performed by [place] [phone] CLIA: [id number] Hanger: Cristofer Perry M.D. O2 CT, Venous 8.4 mmol/L Normal [facility] Comment on above: Performed By: #### V BG #### Unless otherwise noted, all testing performed by [place] [address] CLIA: [id number] Hanger: Cristofer Perry M.D. O2 Device Room Air Normal [facility] Comment on above: Performed By: #### V BG #### Unless otherwise noted, all testing performed by [place] [phone] CLIA: [id number] Hanger: Cristofer Perry M.D. pCO2 (temp conv.), Venous 38.3 mm Hg Low [address] [place] [address] Comment on above: Performed By: #### V BG #### Unless otherwise noted, all testing performed by [place] [phone] CLIA: [id number] Hanger: Cristofer Perry M.D. pCO2, Venous 38.3 mm Hg Low [address] [place] [address] Comment on above: Result Comment: Valu e below reference range Performed By: #### V BG #### Unless otherwise noted, all testing performed by [place] [phone] CLIA: [id number] Hanger: Cristofer Perry M.D. pH (temp conv.), Venous 7.367 Normal 7.32-7.42 [facility] Comment on above: Performed By: #### V BG #### Unless otherwise noted, all testing performed by [place] [phone] CLIA: [id number] Hanger: Cristofer Perry M.D. pH, Venous 7.367 Normal 7.32-7.42 [facility] Comment on above: Performed By: #### V BG #### Unless otherwise noted, all testing performed by [place] [address] CLIA: [id number] Hanger: Cristofer Perry M.D. pO2(temp conv.), Venous 149 mm Hg High [address] [place] [address] Comment on above: Performed By: #### V BG #### Unless otherwise noted, all testing performed by [place] [address] CLIA: [id number] Hanger: Cristofer Perry M.D. pO2, Venous 149 mm Hg High [address] [place] [address] Comment on above: Performed By: #### V BG #### Unless otherwise noted, all testing performed by [place] [phone] CLIA: [id number] Hanger: Cristofer Perry M.D. Site (Bld Gas) OTHER Normal [facility] Comment on above: Performed By: #### V BG #### Unless otherwise noted, all testing performed by [place] [address] CLIA: [id number] Hanger: Cristofer Perry M.D. VPO2 22.0 mmol/L Low 24-28 [facility] Comment on above: Performed By: #### V BG #### Unless otherwise noted, all testing performed by [place] [address] CLIA: [id number] Hanger: Cristofer Perry M.D. iSTAT Pediatric Panelon - Chloride molar conc 105 mmol/L Normal 98-109 [facility] Comment on above: Performed By: #### E RPED #### Unless otherwise noted, all testing performed by [place] [address] CLIA: [id number] Hanger: Cristofer Perry M.D. CO2 molar conc 22 mmol/L Low 23-32 [facility] Comment on above: Performed By: #### E RPED #### Unless otherwise noted, all testing performed by [place] [address] CLIA: [id number] Hanger: Cristofer Perry M.D. Creatinine mass conc 0.4 mg/dL Normal 0.40-1.10 [facility] Comment on above: Performed By: #### E RPED #### Unless otherwise noted, all testing performed by [place] [address] CLIA: [id number] Hanger: Cristofer Perry M.D. Glucose mass conc 259 mg/dL High 70-99 [facility] Comment on above: Performed By: #### E RPED #### Unless otherwise noted, all testing performed by [place] [address] CLIA: [id number] Hanger: Cristofer Perry M.D. Hematocrit Volume Fraction (Bld) 38 % Normal 38.0-51.0 [facility] Comment on above: Performed By: #### E RPED #### Unless otherwise noted, all testing performed by [place] [address] CLIA: [id number] Hanger: Cristofer Perry M.D. Hemoglobin mass conc (Bld) 12.9 g/dL Normal 12.0-17.0 [facility] Comment on above: Performed By: #### E RPED #### Unless otherwise noted, all testing performed by [place] [address] CLIA: [id number] Hanger: Cristofer Perry M.D. Ionized Calcm 1.14 mmol/L Normal 1.12-1.32 [facility] Comment on above: Performed By: #### E RPED #### Unless otherwise noted, all testing performed by [place] [phone] CLIA: [id number] Hanger: Cristofer Perry M.D. Potassium molar conc 4.3 mmol/L Normal 3.5-4.9 [facility] Comment on above: Performed By: #### E RPED #### Unless otherwise noted, all testing performed by [place] [address] CLIA: [id number] Hanger: Cristofer Perry M.D. Sodium molar conc 137 mmol/L Normal 136-141 [facility] Comment on above: Performed By: #### E RPED #### Unless otherwise noted, all testing performed by [place] [address] CLIA: [id number] Hanger: Cristofer Perry M.D. Urea nitrogen mass conc 9 mg/dL Normal 8-26 [facility] Comment on above: Performed By: #### E RPED #### Unless otherwise noted, all testing performed by [place] [address] CLIA: [id number] Hanger: Cristofer Perry M.D. Chloride molar conc 102 mmol/L Normal 98-109 [facility] Comment on above: Performed By: #### E RPED #### Unless otherwise noted, all testing performed by [place] [address] CLIA: [id number] Hanger: Cristofer Perry M.D. CO2 molar conc 21 mmol/L Low 23-32 [facility] Comment on above: Performed By: #### E RPED #### Unless otherwise noted, all testing performed by [place] [phone] CLIA: [id number] Hanger: Cristofer Perry M.D. Creatinine mass conc 0.4 mg/dL Normal 0.40-1.10 [facility] Comment on above: Performed By: #### E RPED #### Unless otherwise noted, all testing performed by [place] [address] CLIA: [id number] Hanger: Cristofer Perry M.D. Glucose mass conc 350 mg/dL High 70-99 [facility] Comment on above: Performed By: #### E RPED #### Unless otherwise noted, all testing performed by [place] [address] CLIA: [id number] Hanger: Cristofer Perry M.D. Hematocrit Volume Fraction (Bld) 39 % Normal 38.0-51.0 [facility] Comment on above: Performed By: #### E RPED #### Unless otherwise noted, all testing performed by [place] [address] CLIA: [id number] Hanger: Cristofer Perry M.D. Hemoglobin mass conc (Bld) 13.3 g/dL Normal 12.0-17.0 [facility] Comment on above: Performed By: #### E RPED #### Unless otherwise noted, all testing performed by [place] [address] CLIA: [id number] Hanger: Cristofer Perry M.D. Ionized Calcm 1.19 mmol/L Normal 1.12-1.32 [facility] Comment on above: Performed By: #### E RPED #### Unless otherwise noted, all testing performed by [place] [address] CLIA: [id number] Hanger: Cristofer Perry M.D. Potassium molar conc 3.8 mmol/L Normal 3.5-4.9 [facility] Comment on above: Performed By: #### E RPED #### Unless otherwise noted, all testing performed by [place] [phone] CLIA: [id number] Hanger: Cristofer Perry M.D. Sodium molar conc 137 mmol/L Normal 136-141 [facility] Comment on above: Performed By: #### E RPED #### Unless otherwise noted, all testing performed by [place] [address] CLIA: [id number] Hanger: Cristofer Perry M.D. Urea nitrogen mass conc 10 mg/dL Normal 8-26 [facility] Comment on above: Performed By: #### E RPED #### Unless otherwise noted, all testing performed by [place] [address] CLIA: [id number] Hanger: Cristofer Perry M.D. EMERGENCY DEPARTMENTon 12-14 [place] [address] HEALTH INFORMATION MANAGEMENT EMERGENCY DEPARTMENT : Signed Patient: MELISSA KAUR Acct:[id number] MRUN: [id number] : 1995 Sex: F Loc: ED ADM [...] Abuse: No Hx Suspected Abuse: No - [place]/Gender ID What is your current Gender Identity? [...] intact - Skin Skin Color: Present: Normal, [place] Skin exam: Present: warm, dry - Vital [...] sl.cloudy (Clear) Urine pH 5 Ur Specific [place] 1.020 (1.015-1.025) Urine Protein Negative (Negative) Urine [...] Provider: 12/14/17 18:55 - Dictation Amendments/Documentatio n: [place] Document Only Electronically Generated By: SARAI PAULA MD Generated Date/Time: 12/14/171934 Electronically Signed By: SARAI PAULA MD Signed Date/Time 12/14/172023 Co Signed Electronically By: Co Signed Date/Time: CC: MILLY SINCLAIR Normal [facility] LURNCon 12-14-2017 LURNC Urine Culture, Miles ne = Final reportPerformed at: [facility] Lab[address] [id number] Director: Korey Corral PhD, Phone: [phone] REPORT: Previous result was SEE BELOW at [...] SPiperacillin/Tazobacta m STetracycline STobramycin STrimethoprim/Sulfa SPerformed at: [facility] LabCoJasmine [place] [id number] Director: Korey Corral PhD, Phone: [phone] Urine Culture = urine, void Normal [facility] Comment on above: Performed By: #### M IC2 ####[address] [address] (Urine)on 12-15-19 18 HCG ( test) Ql (U) Negative Normal Negative [facility] Comment on above: Performed By: #### P REGU ####[address] [address] UA w/Micrscopic-reflex cultu reon 12-14-2017 Appearance sl.cloudy Normal Clear [facility] Comment on above: Performed By: #### U AMRC ####[address] [address] Bacteria 2+ /hpf Normal 0 - 1+ [facility] Comment on above: Performed By: #### U AMRC ####[address] [address] Bilirubin Negative Normal Negative [facility] Comment on above: Performed By: #### U AMRC ####[address] [address] Blood 10 Abnormal Negative [facility] Comment on above: Performed By: #### U AMRC ####[address] [address] Casts TRANSLATION DIRECTOR Normal [facility] Comment on above: Performed By: #### U AMRC ####[address] [address] Casts. TRANSLATION DIRECTOR Normal [facility] Comment on above: Performed By: #### U AMRC ####[address] [address] Color yellow Normal Yellow [facility] Comment on above: Performed By: #### U AMRC ####[address] [address] Crystals TRANSLATION DIRECTOR Normal [facility] Comment on above: Performed By: #### U AMRC ####[address] [address] Crystals. TRANSLATION DIRECTOR Normal [facility] Comment on above: Performed By: #### U AMRC ####[address] [address] Epithelial Cells >15 Normal 0 - 6 [facility] Comment on above: Performed By: #### U AMRC ####[address] [address] Glucose 1000 Abnormal Negative [facility] Comment on above: Performed By: #### U AMRC ####[address] [address] Ketones Trace Normal Negative [facility] Comment on above: Performed By: #### U AMRC ####[address] [address] Leukocytes Esterase Trace Abnormal Negative [facility] Comment on above: Performed By: #### U AMRC ####[address] [address] Mucus TRANSLATION DIRECTOR Normal [facility] Comment on above: Performed By: #### U AMRC ####[address] [address] Nitrites Negative Normal Negative [facility] Comment on above: Performed By: #### U AMRC ####[address] [address] pH 5 Normal [facility] Comment on above: Performed By: #### U AMRC ####[address] [address] Protein Negative Normal Negative [facility] Comment on above: Performed By: #### U AMRC ####[address] [address] Specific [place] 1.020 Normal 1.015-1.025 [facility] Comment on above: Performed By: #### U AMRC ####[address] [address] Trichomonas TRANSLATION DIRECTOR Normal [facility] Comment on above: Performed By: #### U AMRC ####[address] [address] Urine, erythrocytes 2-5 Normal 0 - 2 [facility] Comment on above: Performed By: #### U AMRC ####[address] [address] Urobilinogen NORMAL Normal Normal-1.0 [facility] Comment on above: Performed By: #### U AMRC ####[address] [address] WBC 2-5 Normal 0 - 6 [facility] Comment on above: Performed By: #### U AMRC ####[place] [address] [place], [place] [address] Yeast TRANSLATION DIRECTOR Normal [facility] Comment on above: Performed By: #### U AMRC ####[facility] [place], [place] [address] Other TRANSLATION DIRECTOR Normal [facility] Comment on above: Performed By: #### U AMRC ####[facility] [place] [address] Basic Metabolic Panelon -2 Anion gap 10.0 mmol/L Normal 6.0-18.0 [facility] Comment on above: Result Comment: CARSON BARKER NOTE:The calculated Anion Gap(AGAP) does not include Potassium. Performed By: #### 6 9405-9, 13826-1p1, 57131-4 ####[facility], [address] [place], [place]. Calcium 9.2 mg/dL Normal 8.9-10.3 [facility] Comment on above: Performed By: #### 6 9405-9, 23062-2j1, 00316-4 ####[facility], [address] [place], [place]. Chloride 103 mmol/L Normal 98-107 [facility] Comment on above: Performed By: #### 6 9405-9, 46533-8a7, 44264-9 ####[facility], [address] [place], [place]. CO2 26 mmol/L Normal 22-32 [facility] Comment on above: Performed By: #### 6 9405-9, 95168-4p0, 05880-9 ####[facility], [address] [place], [place]. Creatinine 0.82 mg/dL Normal 0.66-1.30 [facility] Comment on above: Performed By: #### 6 9405-9, 21878-3y8, 48642-2 ####[facility], [address] [place], [place]. Glucose mass conc 178 mg/dL High 70-110 [facility] Comment on above: Performed By: #### 6 9405-9, 47351-2p7, 38471-2 ####[facility], [address] [place], [place]. Potassium molar conc 3.5 mmol/L Low 3.6-5.1 [facility] Comment on above: Performed By: #### 6 9405-9, 17550-5n4, 12884-6 ####[facility], [address] [place], [place]. Sodium 139 mmol/L Normal 136-145 [facility] Comment on above: Performed By: #### 6 9405-9, 07965-2y5, 31927-3 ####[facility], [address] [place], [place]. Urea nitrogen 16 mg/dL Normal 8-20 [facility] Comment on above: Performed By: #### 6 9405-9, 53209-3t4, 66839-9 ####[facility], [address] [place] [address]. CBC with Differentialon -2 Basophils Auto #/vol (Bld) 0.3 % Normal 0.0-2.0 [facility] Comment on above: Performed By: #### 5 7021-8 ####[facility], [address] [place], [place]. Basophils Auto #/vol (Bld) 0.00 thou/mcL Normal 0.00-0.20 [facility] Comment on above: Performed By: #### 5 7021-8 ####[facility], [address] [place], [place]. Eosinophils 0.10 thou/mcL Normal 0.00-0.70 [facility] Comment on above: Performed By: #### 5 7021-8 ####[facility], [address], [place]. Eosinophils/100 leukocytes 1.3 % Normal 0.0-7.0 [facility] Comment on above: Performed By: #### 5 7021-8 ####[facility], [address] [place], [place]. Erythrocyte distribution width Auto Ratio (RBC) 13.8 % Normal 11.0-14.8 [facility] Comment on above: Performed By: #### 7021-8 ####[facility], [address], [place]. Erythrocytes (RBC) 5.24 million/mcL High 3.80-5.10 [facility] Comment on above: Performed By: #### 5 7021-8 ####[facility], [facility] [address] [place], [place]. Hematocrit (HCT) 41.0 % Normal 35.0-45.0 [facility] Comment on above: Performed By: #### 7021-8 ####[facility], [address], [place]. Hemoglobin mass conc (Bld) 14.0 g/dL Normal 12.0-16.0 [facility] Comment on above: Performed By: #### 5 7021-8 ####[facility], [address] [place], [place]. Lymphocytes 2.60 thou/mcL Normal 1.00-4.80 [facility] Comment on above: Performed By: #### 5 7021-8 ####[facility], [address], [place]. Lymphocytes/100 leukocytes 31.2 % Normal 22.0-44.0 [facility] Comment on above: Performed By: #### 5 7021-8 ####[facility], [address], [place]. MCH 26.8 Picograms Low 27.0-34.0 [facility] Comment on above: Performed By: #### 5 7021-8 ####[facility], [address] [place], [place]. MCHC mass conc (RBC) 34.2 g/dL Normal 32.0-36.0 [facility] Comment on above: Performed By: #### 5 7021-8 ####[facility], [address] [place], [place]. MCV 78.3 fL Low 80.0-97.0 [facility] Comment on above: Performed By: #### 5 7021-8 ####[facility], [address] [place], [place]. Monocytes 0.50 thou/mcL Normal 0.00-0.90 [facility] Comment on above: Performed By: #### 5 7021-8 ####[facility], [address] [facility] [place], [place]. Monocytes/100 leukocytes 6.0 % Normal 0.0-12.0 [facility] Comment on above: Performed By: #### 5 7021-8 ####[facility], [address] [place], [place]. Neutrophils 5.20 thou/mcL Normal 1.80-7.70 [facility] Comment on above: Performed By: #### 5 7021-8 ####[facility], [address] [place], [place]. Neutrophils/100 WBC Auto (Bld) 61.2 % Normal 40.0-70.0 [facility] Comment on above: Performed By: #### 5 7021-8 ####[facility], [address] [place], [place]. Platelet mean volume (PMV) 8.2 fL Normal 6.2-12.1 [facility] Comment on above: Performed By: #### 5 7021-8 ####[facility], [address] [place], [place]. Platelets 265 thou/mcL Normal 142-424 [facility] Comment on above: Performed By: #### 5 7021-8 ####[facility], [address] [place]. WBC (Leukocytes) 8.4 thou/mcL Normal 4.6-10.2 [facility] Comment on above: Performed By: #### 5 7021-8 ####[facility], [address] [place], [place]. 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 Attending physician: Dr. Morales have performed a [...] normal excursion. No stridor or droolingCARDIAC: RRRSKIN: [place], warm, dryABD: Diffuse tenderness to palpation over [...] Result(s): Date Order Results 11/29/2017 20:14 Specific [place] Urine POCT N 1.030 11/29/2017 20:14 pH Urine POCT N 5 11/29/2017 20:17 Appearance Urine A HAZY 11/29/2017 20:17 Specific [place] Urine H 1.036 11/29/2017 20:17 Glucose Urine [...] adnexal mass.Immediate final results were provided per protocol.[place] thanks you for the opportunity to care for your patient. Workstation ID: [id number] - [id number] FOLLOW UP:FOLLOW-UP APPOINTMENTS: Provider: Specialty: Address: Date: Follow up with primary care provider 3 to 4 days Provider: Specialty: Address: Date: Return to Emergency Department Follow-up as needed Normal [facility] ED Pat Eduon 11-30-2017 ED Pat [place] [address] Emergency Department Discharge Instructions MELISSA BYRNE , [...] Servicios [facility] Emer[facility]cia Name MELISSA BYRNE MRN (COL)-[id number] PLEASE READ THE FOLLOWING REGARDING YOUR MEDICATIONS [...] doses are changed, or new medications (including ovtn-ujy-vyumrxn products) are added. If you have any [...] TAKE UNTIL YOU TALK TO YOUR DOCTORNone [place] [address] [facility] Department Discharge Instructions Name: MELISSA BYRNE AMRITA Current Date: 11/29/2017 23:26:24 : 1995 12:00 PM Primary Physician: Physician, PCP Unknown We would like to thank you for choosing [facility] for your emergency medical needs. We [...] health of those around you. Call the [place] [employer] at 7-552-BJKP-[place] or the [place] [employer] at 7-870-ZYV-4446 for more information.High blood pressure: Your screening blood pressure today was 114 mm Hg / . Hypertension (high blood pressure) is blood pressure over 120/80. People with hypertension should contact their primary care provider within 30 days to follow up. Check your patient portal for additional blood pressure information.Immunizatio ns:Immunization is a way to protect against deadly infections. Discuss this with your child's roof bolter helper, or Public Health Department. Your family practice doctor can determine if you need pneumonia or flu vaccine. [facility] Department can be reached at .Domestic [...] suicide hotline, anytime day or night, at 3-188-471-BTDC. Pharmacy Information:Below is a list of 24 hour pharmacies that we are aware of. We suggest that you call the specific pharmacy for their hours before traveling to a location. Hours may vary on holidays. [facility] [place] [address] [place] [address] [phone] [facility] [place] [address] [phone] [place] [address] [phone] [place] [address] [phone] [place] [address] [phone] [place] [address] [phone] [place] [address] [phone] Take all medications as directed. If you need prescription assistance, contact the following agencies:?? Partnership for Prescription Assistance at or www.pparx.org?? [place] [facility] at or www.Ecopolbestrx.org?? www.MultistatRx.[employer] is a site with many valuable [...] cyst, if your caregiver is not a cdl team truck driver.?? Get your yearly and recommended pelvic examinations [...] 05/26/2006 Document Re-Released: 05/14/2010ExitCare?? Patient Information ??2011 [employer].VIRUSES OR BACTERIA: WHAT'S GOT YOU SICK?Antibiotics only [...] Signature Date Time Provid er Signature Normal [facility] ED Physician Noteson 018 ED Physician [...] this documentation, there is a possibility of eqscd-b-rhfk errors inherent to this technology that may [...] Immediate final results were provided per protocol. [place] thanks you for the opportunity to care [...] Emergency November 29, 2017 20:32 Ordered Normal [facility] ED Physician Notes PDF Normal [facility] GFRaaon 11-30-2017 eGFR (black) mL/min/{1.73_m2} Normal [facility] Comment on above: Result Comment: The MDRD equation has not been validated for those over 70 years, women, patients with serious co-morbid conditions, or with extremes of bodysize, muscle mass of nutritional status. Performed By: #### 6 9405-9, 62737-3v0, 61294-0 ####[facility], [address] [place], [place]. GFRbbon 11-30-2017 eGFR (non-black) mL/min/{1.73_m2} Normal [facility] Comment on above: Performed By: #### 6 9405-9, 78223-8q8, 66478-0 ####[facility], [address] [place], [place]. 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 Attending physician: Dr. Shannon I have performed [...] No stridor or drooling CARDIAC: RRR SKIN: [place], warm, dry ABD: Diffuse tenderness to palpation [...] Use Tobacco No qualifying data available. Normal [facility] ED Physician Notes PDF Normal [facility] [place] Duplex Abd/Pelvis Retrope r Completeon [...] adnexal mass.Immediate final results were provided per protocol.[place] thanks you for the opportunity to care for your patient. Workstation ID: [id number] - [id number] FINAL REPORT Dictated By: Amado Gilman MD 11/29/2017 21:34Assigned Physician: Amado Gilman MDReviewed and Electronically Signed By: Amado Gilman MD 11/29/2017 21:39Transcribed by: TAMI 11/29/2017 21:34Technologist: RANI Normal [facility] US Pelvis Non-OB Completeon 11-29-2017 US [...] adnexal mass.Immediate final results were provided per protocol.[place] thanks you for the opportunity to care for your patient. Workstation ID: [id number] - [id number] FINAL REPORT Dictated By: Amado Gilman MD 11/29/2017 21:34Assigned Physician: Amado Gilman MDReviewed and Electronically Signed By: Amado Gilman MD 11/29/2017 21:39Transcribed by: TAMI 11/29/2017 21:34Technologist: RANI Heredia [facility] US Transvaginalon 11-29-2017 US Transvaginal Study: [...] adnexal mass.Immediate final results were provided per protocol.[place] thanks you for the opportunity to care for your patient. Workstation ID: [id number] - [id number] FINAL REPORT Dictated By: Amado Gilman MD 11/29/2017 21:34Assigned Physician: Amado Gilman MDReviewed and Electronically Signed By: Amado Gilman MD 11/29/2017 21:39Transcribed by: TAMI 11/29/2017 21:34Technologist: NMP Normal [facility] Urinalysis Microscopicon Urine, bacteria in sediment RARE Abnormal NONE/HPF [facility] Comment on above: Performed By: #### 5 8077-9, 85559-1 ####[facility], [address], [place]. Urine, erythrocytes in sediment by area 1 /[HPF] Normal 0-5 [facility] Comment on above: Performed By: #### 5 8077-9, 59871-0 ####[facility], [address], [place]. Urine, leukocytes in sedmiment 1 /[HPF] Normal 0-5 [facility] Comment on above: Performed By: #### 5 8077-9, 03618-6 ####[facility], [address] [place], [place]. Urine, mucus presence in sediment RARE Abnormal NONE/LPF [facility] Comment on above: Performed By: #### 5 8077-9, 87876-5 ####[facility], [address] [place], [place]. Urine, squamous cells in sediment MANY Abnormal FEW/LPF [facility] Comment on above: Performed By: #### 5 8077-9, 79406-1 ####[facility], [address] [place], [place]. Urinalysis with Microscopic Automatic with Reflexon 11-29-2017 Bilirubin Urine Negative Normal NEGATIVE [facility] Comment on above: Performed By: #### 5 8077-9, 83704-8 ####[facility], [address] [place], [place]. Nitrite Urine Positive Abnormal NEGATIVE [facility] Comment on above: Performed By: #### 5 8077-9, 68104-6 ####[facility], [address] [place], [place]. Urine, appearance HAZY Abnormal CLEAR [facility] Comment on above: Performed By: #### 5 8077-9, 37189-9 ####[facility], [address] [place], [place]. Urine, color YELLOW Normal YELLOW [facility] Comment on above: Performed By: #### 5 8077-9, 27956-4 ####[facility], [address] [place], [place]. Urine, glucose presence 500MG/DL Abnormal NORMAL [facility] Comment on above: Performed By: #### 5 8077-9, 52024-4 ####[facility] ST[facility]unoD[facility], [address], [place]. Urine, hemoglobin presence Negative Normal NEGATIVE [facility] Comment on above: Performed By: #### 5 8077-9, 25131-0 ####[facility], [address] Urine, ketones presence 5MG/DL Abnormal NEGATIVE [facility] Comment on above: Performed By: #### 5 8077-9, 21967-9 ####[facility], [address] Urine, leukocyte esterase presence Negative Normal NEGATIVE [facility] Comment on above: Performed By: #### 5 8077-9, 90786-5 ####[facility], [address] [place]. Urine, pH 5.0 [pH] Normal 4.5-8.0 [facility] Comment on above: Performed By: #### 5 8077-9, 84328-5 ####[facility], [address] [place]. Urine, protein Negative Normal NEGATIVE [facility] Comment on above: Performed By: #### 5 8077-9, 35098-2 ####[facility], [address] [place]. Urine, specific gravity 1.036 High 1.002-1.030 [facility] Comment on above: Performed By: #### 5 8077-9, 36692-5 ####[facility], [address] [place]. Urobilinogen Urine NORMAL Normal NORMAL [facility] Comment on above: Performed By: #### 5 8077-9, 14766-8 ####[facility], [address] [place]. [facility] Breast Uni Limited LTo n 11-20-2017 [facility] Breast Uni Limited LT DATE OF EXAM [...] follow-up for the patient's symptoms.BI-RADS Code 1-N: Negative.[place] thanks you for the opportunity to care for your patient. Workstation ID: [id number] - [id number] FINAL REPORT Dictated By: Mihir Real MD 11/20/2017 10:50Assigned Physician: Mihir Real MD AReviewed and Electronically Signed By: Mihir Real MD 11/20/2017 10:53Transcribed by: TAMI 11/20/2017 10:50Technologist: GISELA Heredia [facility] Antibody Screen Interpretati onon 11-15-2017 Interpretation and review of laboratory results Negative Normal NEGATIVE [facility] Comment on above: Performed By: #### 6 9405-9, 64568-7n4, 93976-3 ####[facility], [address] [place], [place]. Basic Metabolic Panelon Anion gap 7.0 mmol/L Normal 6.0-18.0 [facility] Comment on above: Result Comment: CARSON BARKER NOTE:The calculated Anion Gap(AGAP) does not include Potassium. Performed By: #### 6 9405-9, 85157-2g7, 45231-4 ####[facility], [address]. Calcium 10.1 mg/dL Normal 8.9-10.3 [facility] Comment on above: Performed By: #### 6 9405-9, 06978-4g9, 31705-0 ####[address] [facility], [address], [place]. Chloride 103 mmol/L Normal 98-107 [facility] Comment on above: Performed By: #### 6 9405-9, 44118-2o5, 25491-9 ####[address], [address], [place]. CO2 28 mmol/L Normal 22-32 [facility] Comment on above: Performed By: #### 6 9405-9, 38683-2a6, 06393-0 ####[facility], [address] [place], [place]. Creatinine 0.53 mg/dL Low 0.66-1.30 [facility] Comment on above: Performed By: #### 6 9405-9, 59842-3y7, 62231-9 ####[facility], [address] [place], [place]. Glucose mass conc 215 mg/dL High 70-110 [facility] Comment on above: Performed By: #### 6 9405-9, 85318-8b7, 31888-0 ####[facility], [address] [place], [place]. Potassium molar conc 3.9 mmol/L Normal 3.6-5.1 [facility] Comment on above: Performed By: #### 6 9405-9, 62171-1t2, 94415-5 ####[facility], [address], [place]. Sodium 138 mmol/L Normal 136-145 [facility] Comment on above: Performed By: #### 6 9405-9, 08863-9k7, 24172-5 ####[facility] STD[facility]NA [facility], [address], [place]. Urea nitrogen 10 mg/dL Normal 8-20 [facility] Comment on above: Performed By: #### 6 9405-9, 29156-1b4, 28651-9 ####[facility], [address] [place], [place]. Blood Type ABO and Rh(D)on 0 11-15-2017 ABO+Rh group Positive Normal [facility] Comment on above: Performed By: #### 6 9405-9, 23075-6a9, 59584-1 ####[facility], [address] [place], [place]. CBC with Differentialon -0 Basophils Auto #/vol (Bld) 0.10 thou/mcL Normal 0.00-0.20 [facility] Comment on above: Performed By: #### 6 9405-9, 37813-5u0, 23026-9 ####[facility], [address], [place], [place]. Basophils Auto #/vol (Bld) 0.6 % Normal 0.0-2.0 [facility] Comment on above: Performed By: #### 6 9405-9, 94510-3s2, 66200-9 ####[facility], [address], [place], [place]. Eosinophils 0.10 thou/mcL Normal 0.00-0.70 [facility] Comment on above: Performed By: #### 6 9405-9, 41743-8g2, 10542-5 ####[facility], [address] [place], [place]. Eosinophils/100 leukocytes 0.9 % Normal 0.0-7.0 [facility] Comment on above: Performed By: #### 6 9405-9, 98832-1x5, 67786-6 ####[facility], [address] [place], [place]. Erythrocyte distribution width Auto Ratio (RBC) 14.1 % Normal 11.0-14.8 [facility] Comment on above: Performed By: #### 6 9405-9, 06593-3h9, 74655-3 ####[facility], [address] [place], [place]. Erythrocytes (RBC) 5.51 million/mcL High 3.80-5.10 [facility] Comment on above: Performed By: #### 6 9405-9, 13676-4i8, 45184-1 ####[facility], [address] [place], [place]. Hematocrit (HCT) 43.1 % Normal 35.0-45.0 [facility] Comment on above: Performed By: #### 6 9405-9, 53005-7k8, 26224-5 ####[facility] VAZQUEZDIANA [facility], [address] [place], [place]. Hemoglobin mass conc (Bld) 15.0 g/dL Normal 12.0-16.0 [facility] Comment on above: Performed By: #### 6 9405-9, 33936-4e7, 50450-0 ####[facility], [address]. Lymphocytes 2.20 thou/mcL Normal 1.00-4.80 [facility] Comment on above: Performed By: #### 6 9405-9, 25959-1d0, 91429-0 ####[facility] VA[facility]ZDIANA [facility], [address] [place], [place]. Lymphocytes/100 leukocytes 25.7 % Normal 22.0-44.0 [facility] Comment on above: Performed By: #### 6 9405-9, 34027-2d9, 48144-3 ####[facility], [address], [place]. MCH 27.2 Picograms Normal 27.0-34.0 [facility] Comment on above: Performed By: #### 6 9405-9, 98404-1w6, 97422-0 ####[facility], [address] [place], [place]. MCHC mass conc (RBC) 34.8 g/dL Normal 32.0-36.0 [facility] Comment on above: Performed By: #### 6 9405-9, 24495-0l3, 86688-3 ####[facility], [address] [place], [place]. MCV 78.1 fL Low 80.0-97.0 [facility] Comment on above: Performed By: #### 6 9405-9, 87845-6t6, 47449-6 ####[facility], [address], [place]. Monocytes 0.40 thou/mcL Normal 0.00-0.90 [facility] Comment on above: Performed By: #### 6 9405-9, 13234-8n3, 19891-7 ####[facility], [address] [place], [place]. Monocytes/100 leukocytes 5.1 % Normal 0.0-12.0 [facility] Comment on above: Performed By: #### 6 9405-9, 98477-8g0, 70567-6 ####[facility], [address] [place], [place]. Neutrophils 5.70 thou/mcL Normal 1.80-7.70 [facility] Comment on above: Performed By: #### 6 9405-9, 35108-0j9, 73362-1 ####[facility], [address] [place], [place]. Neutrophils/100 WBC Auto (Bld) 67.7 % Normal 40.0-70.0 [facility] Comment on above: Performed By: #### 6 9405-9, 04720-1z1, 45533-1 ####[facility], [address], [place]. Platelet mean volume (PMV) 7.8 fL Normal 6.2-12.1 [facility] Comment on above: Performed By: #### 6 9405-9, 78785-9r9, 76002-0 ####[facility], [address] [place], [place]. Platelets 264 thou/mcL Normal 142-424 [facility] Comment on above: Performed By: #### 6 9405-9, 24633-4c8, 71017-8 ####[facility], [address]. WBC (Leukocytes) 8.5 thou/mcL Normal 4.6-10.2 [facility] Comment on above: Performed By: #### 6 9405-9, 11896-1w7, 51172-0 ####[facility], [address] [place], [place]. Depart Summaryon 11-15-2017 Depart Summary EMERGENCY DEPARTMENT DISCHARGE SUMMARYPATIENT NAME:MELISSA BYRNE MRN: [id number]: 22 Years SEX: Female PHONE:[id number]: 11/15/2017 4:07 PM : 1995 ATTENDING PHYSICIAN:Jamila Jama DO PCP: Verona Hilliard MD CHIEF COMPLAINT: Heavy vaginal bleeding with clots Allergies NKAProblems Active Mood disorder Diabetes DISCHARGE DIAGNOSIS: Menorrhagia DISCHARGE INSTRUCTIONS: Menorrhagia, Xvli-jz-Umre ED PHYSICIAN DOCUMENTATION: History of Present IllnessPatient [...] myself to the patient as the physician child welfare assistant. I informed the patient of attending [...] ? ? O2 Flow ? ? ?O2 Ttjmcvmi71/09/18 16:00?-?-?- ?-/-?-? 100? -?Room air11/15/17 18:23?-?-?1 6?124/ [...] to be discharged home and follow-up with AIR TWISTER WINDER or PCP. I believe the abdominal pain is likely due to IUD removal 3 days ago.? I discussed this case my attending physician, Dr. Jama, who agrees with workup and disposition.? I have reviewed assessment and plan with patient who verbalizes understanding. Patient will be discharged home and follow-up with OB-CHILDCARE TEACHER or PCP?provider in 72 hours. Patient is stable and agreeable to plan for discharge home.]? DISCHARGE PLAN:Condition: [Stable]. ?Disposition: [Medically cleared],? Discharged ?Date/Time:?[11-15-2017 18:58 ]?to Home?Prescriptions: NONE ?[ ]Limitations: NONEPatient Education:? Menorrhagia, Owxo-oq-Quzd? [ ]Follow up with:? Provider: ?Verona Hilliard MD?? ?Specialty:??Family Practice?? ?Address:??[address] [address] ? ?[phone] ? (1)?? ?Date:??1 to 2 days??? Comment: [...] Address: Date: Verona Hilliard MD Family Practice [address] [place] [address] [phone] (1) 1 to 2 days Comment: Call for an Appointment Provider: Specialty: Address: Date: Return to Emergency Department Follow-up as needed Comment: Reasons to return to the ED discussed with patient such as fever >101 degrees F, intractable nausea/vomiting, increasing pain, increased bleeding, lack of improvement of symptoms, new symptoms. Normal [facility] ED Pat Rocio 11-15-2017 ED [place] [address] Emergency Department Discharge Instructions CHAVEZJOANNE MOODYMELISSAKATHERINE CROWE , Please provide this information to your Primary Care/Specialist Name : MELISSA BYRNE Current Date : 11/15/2017 19:17:32DOB : 1995 12:00 PM Primary Care Physician: Verona Hilliard MD Diagnosis : Menorrhagia Follow-Up Instructions:CHAVEZJOANNE MOODYMELISSA AMRITA has been given these follow-up instructions: FOLLOW-UP APPOINTMENTS: Provider: Specialty: Address: Date: Verona Hilliard MD [address] [phone] (1) 1 to 2 days Comment: Call [...] Ordered Procedure(s) and Patient Education(s) : Menorrhagia, Rwny-lm-Bhcm EMERGENCY SERVICES MEDICATION LISTLista de Medicaciones de los Servicios de Emergencia Name MELISSA BYRNE MRN (COL)-[id number] PLEASE READ THE FOLLOWING REGARDING YOUR MEDICATIONS [...] doses are changed, or new medications (including tefu-opd-ldyzezv products) are added. If you have any [...] TAKE UNTIL YOU TALK TO YOUR DOCTORNone [place] [address] [facility] Department Discharge Instructions Name: MELISSA BYRNE Current Date: 11/15/2017 19:17:32 : 1995 12:00 PM Primary Physician: Verona Hilliard MD We would like to thank you for choosing [facility] for your emergency medical needs. We [...] health of those around you. Call the [place] [employer] at 9-681-UVKY-[place] or the [place] [employer] at 1-423-LXL-1154 for more information.High blood pressure: Your screening blood pressure today was 124 mm Hg / . Hypertension (high blood pressure) is blood pressure over 120/80. People with hypertension should contact their primary care provider within 30 days to follow up. Check your patient portal for additional blood pressure information.Immunizatio ns:Immunization is a way to protect against deadly infections. Discuss this with your child's roof bolter helper, or Public Health Department. Your family practice doctor can determine if you need pneumonia or flu vaccine. [facility] Department can be reached at .Domestic [...] suicide hotline, anytime day or night, at 0-401-857-ZCTU. Pharmacy Information:Below is a list of 24 hour pharmacies that we are aware of. We suggest that you call the specific pharmacy for their hours before traveling to a location. Hours may vary on holidays. [facility] [place] [address] [phone] [address] [phone] [address] [phone] [place] [address] [phone] [place], [place] [phone] [place], [place] [phone] [place] [address] [phone] Take all medications as directed. If you need prescription assistance, contact the following agencies:?? Partnership for Prescription Assistance at or www.[employer].org?? [facility] at or www.Plastic[employer].Peer.im?? [employer] is a site with many valuable coupons [...] Document Reviewed: 11/25/2013Francisca Interactive Patient Education ?2016 [employer]><><><><><><><><>< ><><><><><><><><><><><> <><><><> Patient Visit Summary Signature MELISSA BYRNE has been given the following list of patient education materials, prescriptions and follow-up instructions: ICHAVEZ ALEXANDRIA JUSTINE, have received the above patient education materials/instructions and have verbalized understanding: Date Time Patien t Signature Date Time Provid er Signature Normal [facility] ED Physician Noteson 018 ED Physician [...] myself to the patient as the physician child welfare assistant. I informed the patient of attending [...] to be discharged home and follow-up with AIR TWISTER WINDER or PCP. I believe the abdominal pain is likely due to IUD removal 3 days ago. I discussed this case my attending physician, Dr. Jama, who agrees with workup and disposition. I have reviewed assessment and plan with patient who verbalizes understanding. Patient will be discharged home and follow-up with OB-CHILDCARE TEACHER or PCP provider in 72 hours. Patient is stable and agreeable to plan for discharge home.] DISCHARGE PLAN: Condition: [Stable]. Disposition: [Medically cleared], Discharged Date/Time: [11-15-2017 18:58 ] toHome Prescriptions:NONE [ ] Limitations: NONE Patient Education: Menorrhagia, Avor-ze-Botk [ ] Follow up with: Provider: Verona Hilliard MD Specialty: Family Practice Address: [address] [place] [phone] (1) Date: 1 to 2 days [...] ORDERS PLACED: Laboratory POC Urine Test (CO) [facility] November 15, 2017 16:30 Completed CBC with Differential Physician, Emergency November 15, 2017 16:49 Completed Basic Metabolic Panel Physician, Emergency November 15, 2017 16:49 Completed HCG Quantitative Physician, Emergency November 15, 2017 16:49 Completed GFRAF Physician, Emergency November 15, 2017 17:09 Completed GFRNAF Physician, Emergency November 15, 2017 17:09 Completed Urinalysis with Reflex Microscopic [facility] November 15, 2017 18:23 Completed U MICRO [facility] November 15, 2017 18:42 Completed Type and Screen Diana Mo November 15, 2017 16:49 Ordered Normal [facility] ED Physician Notes PDF Normal [facility] GFRaaon 11-15-2017 eGFR (black) mL/min/{1.73_m2} Normal [facility] Comment on above: Result Comment: The MDRD equation has not been validated for those over 70 years, women, patients with serious co-morbid conditions, or with extremes of bodysize, muscle mass of nutritional status. Performed By: #### 6 9405-9, 36522-5y5, 03701-3 ####[facility], [address] [place] [address]. GFRbbon 11-15-2017 eGFR (non-black) mL/min/{1.73_m2} Normal [facility] Comment on above: Performed By: #### 6 9405-9, 66803-1h4, 55392-5 ####[facility], [address] [place], [place]. HCG Quantitativeon 8 HCG Qn m[IU]/mL Normal [facility] Comment on above: Result Comment: Preg [...] immunoassay method. Performed By: #### 6 9405-9, 69412-7u9, 02090-8 ####[facility], [address] [place], [place]. Urinalysis Microscopicon Urine, bacteria in sediment RARE Abnormal NONE/HPF [facility] Comment on above: Performed By: #### 6 9405-9, 49042-2h3, 84027-8 ####[facility], [address] [place], [place]. Urine, erythrocytes in sediment by area 4126 /[HPF] High 0-5 [facility] Comment on above: Performed By: #### 6 9405-9, 18720-6g4, 45725-2 ####[facility], [address] [place], [place]. Urine, leukocytes in sedmiment 191 /[HPF] High 0-5 [facility] Comment on above: Performed By: #### 6 9405-9, 12605-3a2, 15978-1 ####[facility], [address] [place], [place]. Urine, mucus presence in sediment FEW Abnormal NONE/LPF [facility] Comment on above: Performed By: #### 6 9405-9, 81368-1z6, 39611-6 ####[facility], [address] [place] Urine, squamous cells in sediment MODERATE Abnormal FEW/LPF [facility] Comment on above: Performed By: #### 6 9405-9, 96919-3r9, 09057-1 ####[facility], [address] Urinalysis with Microscopic Automaticon 11-15-2017 Bilirubin Urine Negative Normal NEGATIVE [facility] Comment on above: Performed By: #### 6 9405-9, 94669-9g1, 64425-0 ####[facility], [address] [place], [place]. Nitrite Urine Negative Normal NEGATIVE [facility] Comment on above: Performed By: #### 6 9405-9, 29585-6z9, 20104-0 ####[facility], [address] [place], [place]. Urine, appearance TURBID Abnormal CLEAR [facility] Comment on above: Performed By: #### 6 9405-9, 01091-7f4, 65483-6 ####[facility], [address] [facility], [place], [place]. Urine, color YELLOW Normal YELLOW [facility] Comment on above: Performed By: #### 6 9405-9, 39144-3f7, 01092-1 ####[facility], [address] [place], [place]. Urine, glucose presence 500MG/DL Abnormal NORMAL [facility] Comment on above: Performed By: #### 6 9405-9, 30728-7j0, 44626-4 ####[facility], [address] Urine, hemoglobin presence 300/UL Abnormal NEGATIVE [facility] Comment on above: Performed By: #### 6 9405-9, 38026-5q4, 73490-2 ####[facility], [address] [place], [place]. Urine, ketones presence 5MG/DL Abnormal NEGATIVE [facility] Comment on above: Performed By: #### 6 9405-9, 60877-8m9, 40656-2 ####[facility], [address] [place], [place]. Urine, leukocyte esterase presence 25/UL Abnormal NEGATIVE [facility] Comment on above: Performed By: #### 6 9405-9, 94978-5k1, 33175-8 ####[facility], [address] [place], [place]. Urine, pH 6.0 [pH] Normal 4.5-8.0 [facility] Comment on above: Performed By: #### 6 9405-9, 55276-2c3, 49650-0 ####[facility], [address] [place] [address]. Urine, protein 100 mg/dL Abnormal NEGATIVE [facility] Comment on above: Performed By: #### 6 9405-9, 31280-5j6, 67918-8 ####[facility], [address] [place], [place]. Urine, specific gravity 1.026 Normal 1.002-1.030 [facility] Comment on above: Performed By: #### 6 9405-9, 64597-0t3, 21143-5 ####[facility], [address] [place] [address]. Urobilinogen Urine NORMAL Normal NORMAL [facility] Comment on above: Performed By: #### 6 9405-9, 16397-5c5, 61115-8 ####[facility], [address] [place], [place]. ED Physician Noteson 018 ED Physician Notes Chief Complaint nauseaED Assigned Provider/Time Time Seen: Poncho El / 10/09/2017 18:37History of Present Illness I have introduced myself as a Physician Corporate Executive and informed the patient of the supervising/collaborati [...] Laboratory POC Urinalysis Manual (CO) Priti WEBSTER [facility] October 09, 2017 18:34 Completed POC Urine Test (CO) Priti WEBSTER [facility] October 09, 2017 18:34 Completed Urinalysis with Reflex Microscopic Reynaldo PAPoncho October 09, 2017 18:44 Completed BMP (Basic Metabolic Panel) [facility]aldo [facility] October 09, 2017 18:44 Completed CBC with Differential Reynaldo BUDDY [facility] [place] October 09, 2017 18:44 Completed Lipase Reynaldo GOODWIN [facility] October 09, 2017 18:44 Completed Hepatic Function Panel Reynaldo GOODWIN [facility] October 09, 2017 18:44 Completed U MICRO Reynaldo GOODWIN [facility] October 09, 2017 19:28 Completed GFRAF Reynaldo GOODWIN [facility] October 09, 2017 19:32 Completed GFRNAF Reynaldo GOODWIN [facility] October 09, 2017 19:32 Completed Normal [facility] ED Physician Notes PDF Normal [facility] Basic Metabolic Panelon 05-0 Anion gap 12.0 mmol/L Normal 6.0-18.0 [facility] Comment on above: Result Comment: CARSON BARKER NOTE:The calculated Anion Gap(AGAP) does not include Potassium. Performed By: #### 6 9405-9, 48952-1l4, 47679-3 ####[facility], [address] [place], [place]. Calcium 10.2 mg/dL Normal 8.9-10.3 [facility] Comment on above: Performed By: #### 6 9405-9, 45651-1k2, 91833-3 ####[facility], [address] [place]. Chloride 102 mmol/L Normal 98-107 [facility] Comment on above: Performed By: #### 6 9405-9, 40334-9j4, 21646-3 ####[facility], [address] CO2 23 mmol/L Normal 22-32 [facility] Comment on above: Performed By: #### 6 9405-9, 68874-0n6, 92319-8 ####[facility], [address] [place], [place]. Creatinine 0.84 mg/dL Normal 0.66-1.30 [facility] Comment on above: Performed By: #### 6 9405-9, 72604-9c6, 68571-2 ####[facility], [address] [place], [place]. Glucose mass conc 252 mg/dL High 70-110 [facility] Comment on above: Performed By: #### 6 9405-9, 84533-8n4, 74581-3 ####[facility], [address] [place], [place]. Potassium molar conc 3.6 mmol/L Normal 3.6-5.1 [facility] Comment on above: Performed By: #### 6 9405-9, 80110-2m9, 44140-0 ####[facility], [address] [place], [place]. Sodium 137 mmol/L Normal 136-145 [facility] Comment on above: Performed By: #### 6 9405-9, 60248-3z3, 22608-2 ####[facility], [address] [place], [place]. Urea nitrogen 15 mg/dL Normal 8-20 [facility] Comment on above: Performed By: #### 6 9405-9, 28822-8n4, 17204-3 ####[facility], [address] [place], [place]. CBC with Differentialon 05-0 Basophils Auto #/vol (Bld) 0.10 thou/mcL Normal 0.00-0.20 [facility] Comment on above: Performed By: #### 6 9405-9, 06750-4k0, 12456-6 ####[facility], [address] [place], [place]. Basophils Auto #/vol (Bld) 0.7 % Normal 0.0-2.0 [facility] Comment on above: Performed By: #### 6 9405-9, 49532-5o7, 84923-7 ####[facility], [address] [place], [place]. Eosinophils 0.20 thou/mcL Normal 0.00-0.70 [facility] Comment on above: Performed By: #### 6 9405-9, 87497-8c2, 33026-9 ####[facility], [address] [place], [place]. Eosinophils/100 leukocytes 1.8 % Normal 0.0-7.0 [facility] Comment on above: Performed By: #### 6 9405-9, 15636-5c2, 14025-5 ####[facility], [address] [place], [place]. Erythrocyte distribution width Auto Ratio (RBC) 15.0 % High 11.0-14.8 [facility] Comment on above: Performed By: #### 6 9405-9, 68958-3l1, 73909-0 ####[facility], [address] [place], [place]. Erythrocytes (RBC) 5.60 million/mcL High 3.80-5.10 [facility] Comment on above: Performed By: #### 6 9405-9, 28364-8y3, 88852-3 ####[facility], [address] [place], [place]. Hematocrit (HCT) 43.9 % Normal 35.0-45.0 [facility] Comment on above: Performed By: #### 6 9405-9, 80388-7p5, 34316-8 ####[facility], [address] [place], [place]. Hemoglobin mass conc (Bld) 14.8 g/dL Normal 12.0-16.0 [facility] Comment on above: Performed By: #### 6 9405-9, 86290-6n7, 21947-0 ####[facility], [address]. Lymphocytes 2.50 thou/mcL Normal 1.00-4.80 [facility] Comment on above: Performed By: #### 6 9405-9, 84732-1f1, 35910-6 ####[facility], [address]. Lymphocytes/100 leukocytes 29.2 % Normal 22.0-44.0 [facility] Comment on above: Performed By: #### 6 9405-9, 81540-0o1, 77838-7 ####[facility], [address] [place], [place]. MCH 26.4 Picograms Low 27.0-34.0 [facility] Comment on above: Performed By: #### 6 9405-9, 42771-0p1, 62791-0 ####[facility], [address] [facility], [place], [place]. MCHC mass conc (RBC) 33.6 g/dL Normal 32.0-36.0 [facility] Comment on above: Performed By: #### 6 9405-9, 70194-1p2, 20256-3 ####[facility], [address] MCV 78.4 fL Low 80.0-97.0 [facility] Comment on above: Performed By: #### 6 9405-9, 71142-3o5, 93340-0 ####[facility], [address] Monocytes 0.40 thou/mcL Normal 0.00-0.90 [facility] Comment on above: Performed By: #### 6 9405-9, 85723-2r8, 71963-4 ####[facility], [address] [place], [place]. Monocytes/100 leukocytes 4.1 % Normal 0.0-12.0 [facility] Comment on above: Performed By: #### 6 9405-9, 89025-8q5, 58728-2 ####[facility], [address] [place], [place]. Neutrophils 5.50 thou/mcL Normal 1.80-7.70 [facility] Comment on above: Performed By: #### 6 9405-9, 35887-6j8, 86401-4 ####[facility], [address] [place], [place]. Neutrophils/100 WBC Auto (Bld) 64.2 % Normal 40.0-70.0 [facility] Comment on above: Performed By: #### 6 9405-9, 13103-1j3, 98630-3 ####[facility], [address] [place], [place]. Platelet mean volume (PMV) 8.0 fL Normal 6.2-12.1 [facility] Comment on above: Performed By: #### 6 9405-9, 56757-7p1, 07923-1 ####[facility], [address] [place], [place]. Platelets 293 thou/mcL Normal 142-424 [facility] Comment on above: Performed By: #### 6 9405-9, 43279-5w1, 44907-4 ####[facility], [address] [place], [place]. WBC (Leukocytes) 8.5 thou/mcL Normal 4.6-10.2 [facility] Comment on above: Performed By: #### 6 9405-9, 46864-3o4, 65078-8 ####[facility], [address] [place], [place]. Depart Summaryon 10-09-2017 Depart Summary EMERGENCY DEPARTMENT DISCHARGE SUMMARYPATIENT NAME:MELISSA BYRNE MRN: (WOS)-[id number]: 22 Years SEX: Female PHONE:[phone]: 10/09/2017 6:00 PM : 1995 ATTENDING PHYSICIAN:Josie [...] Result(s): Date Order Results 10/09/2017 18:35 Specific [place] Urine POCT N 1.030 10/09/2017 18:35 pH Urine POCT N 5 10/09/2017 18:35 Urobilinogen Urine POCT N 0 mg/dL 10/09/2017 18:45 Appearance Urine A TURBID 10/09/2017 18:45 Specific [place] Urine H 1.032 10/09/2017 18:45 Glucose Urine [...] Address: Date: Verona Hilliard MD Family Practice [address] [place] [address] [phone] (1) 1 to 2 days Normal [facility] ED Pat Eduon 10-09-2017 ED Pat [place] [address] [facility] Discharge Instructions MELISSA BYRNE , Please provide this information to your Primary Care/Specialist Name : MELISSA BYRNE Current Date : 10/09/2017 20:40:15DOB : 1995 12:00 PM Primary Care Physician: Verona Hilliard MD Diagnosis : Acute UTI; Epigastric pain Follow-Up Instructions:MELISSA BYRNE has been given these follow-up instructions: FOLLOW-UP APPOINTMENTS: Provider: Specialty: Address: Date: Verona Hilliard MD Family Practice [address] [place] [address] [phone] (1) 1 to 2 days Laboratory Orders: [...] doses are changed, or new medications (including agav-cyt-cwmvzjy products) are added. If you have any [...] TAKE UNTIL YOU TALK TO YOUR DOCTORNone [place] [address] [facility] Department Discharge Instructions Name: MELISSA BYRNE AMRITA Current Date: 10/09/2017 20:40:15 : 1995 12:00 PM Primary Physician: Verona Hilliard MD We would like to thank you for choosing [facility] for your emergency medical needs. We [...] health of those around you. Call the [place] [employer] at 1-486-LCBT-[place] or the [place] [employer] at 3-060-LNB-3973 for more information.High blood pressure: Your screening blood pressure today was 114 mm Hg / . Hypertension (high blood pressure) is blood pressure over 120/80. People with hypertension should contact their primary care provider within 30 days to follow up. Check your patient portal for additional blood pressure information.Immunizatio ns:Immunization is a way to protect against deadly infections. Discuss this with your child's roof bolter helper, or Public Health Department. Your family practice doctor can determine if you need pneumonia or flu vaccine. [facility] Department can be reached at .Domestic [...] suicide hotline, anytime day or night, at 1-840-094-NHEC. Pharmacy Information:Below is a list of 24 hour pharmacies that we are aware of. We suggest that you call the specific pharmacy for their hours before traveling to a location. Hours may vary on holidays. [facility] [address] [address] [phone] [place] [address] [phone] [place] [address] [phone] [place] [address] [phone] [place], [place] [phone] [address] [phone] [place] [address] [phone] Take all medications as directed. If you need prescription assistance, contact the following agencies:?? [facility] for Prescription Assistance at or www.pparx.org?? [facility] Best Rx at or www.HuJe labsstrx.org?? CardMunch.MultistatRxi3 membrane is a site with many valuable coupons [...] alleviate any discomfort you are experiencing:???Only take eiki-obm-dltewdz or prescription medicines as directed by your [...] Document Reviewed: 02/02/2014Albanevpapa Interactive Patient Education ?2016 [employer].Obstetrics and GynecologyUrinary Tract InfectionUrinary tract infections (UTIs) [...] Document Reviewed: 07/03/2012Francisca Interactive Patient Education ?2016 [employer].VIRUSES OR BACTERIA: WHAT'S GOT YOU SICK?Antibiotics [...] Signature Date Time Provid er Signature Normal [facility] GFRaaon 10-09-2017 eGFR (black) mL/min/{1.73_m2} Normal [facility] Comment on above: Result Comment: The MDRD equation has not been validated for those over 70 years, women, patients with serious co-morbid conditions, or with extremes of bodysize, muscle mass of nutritional status. Performed By: #### 6 9405-9, 45655-8q6, 87410-0 ####[facility], [address] [place], [place]. GFRbbon 10-09-2017 eGFR (non-black) mL/min/{1.73_m2} Normal [facility] Comment on above: Performed By: #### 6 9405-9, 00661-9w0, 96161-2 ####[facility], [address] [place], [place]. Hepatic Function Panelon Alanine aminotransferase (ALT) 45 Units/L Normal 14-63 [facility] Comment on above: Performed By: #### 6 9405-9, 39849-6p9, 69333-7 ####[facility], [address] [place], [place]. Albumin 4.6 g/dL Normal 3.5-4.8 [facility] Comment on above: Performed By: #### 6 9405-9, 13376-1u6, 27478-8 ####[facility], [address] [place], [place]. Alkaline phosphatase (ALP) 81 Units/L Normal 32-91 [facility] Comment on above: Performed By: #### 6 9405-9, 89772-1q1, 47753-0 ####[facility], [address] [place], [place]. Aspartate aminotransferase (AST) 23 Units/L Normal 15-41 [facility] Comment on above: Performed By: #### 6 9405-9, 48028-5j1, 67163-9 ####[facility], [address] [place], [place]. Bilirubin (direct) 0.0 mg/dL Low 0.1-0.5 [facility] Comment on above: Performed By: #### 6 9405-9, 38858-9y0, 95967-2 ####[facility], [address] [place], [place]. Bilirubin (total) 0.4 mg/dL Normal 0.3-1.2 [facility] Comment on above: Performed By: #### 6 9405-9, 09183-5g8, 28700-0 ####[facility], [address], [place]. Bilirubin.indirect mass conc 0.4 mg/dL Normal 0.0-1.0 [facility] Comment on above: Performed By: #### 6 9405-9, 21482-2n2, 13632-9 ####[facility], [address] [place], [place]. Protein 7.9 g/dL Normal 6.1-7.9 [facility] Comment on above: Performed By: #### 6 9405-9, 75873-5r1, 07836-8 ####[facility], [address] [facility] [place] Lipaseon 10-09-2017 Lipase 13 Units/L Low 22-51 [facility] Comment on above: Performed By: #### 6 9405-9, 56530-5x1, 11153-5 ####[facility], [address] Urinalysis Microscopicon Urine, erythrocytes in sediment by area 5 /[HPF] Normal 0-5 [facility] Comment on above: Performed By: #### 6 9405-9, 19748-7w7, 69591-0 ####[facility], [address] [place]. Urine, leukocytes in sedmiment 6 /[HPF] High 0-5 [facility] Comment on above: Performed By: #### 6 9405-9, 26752-7i1, 29489-8 ####[facility], [address] [place], [place]. Urine, mucus presence in sediment RARE Abnormal NONE/LPF [facility] Comment on above: Performed By: #### 6 9405-9, 75613-2k0, 36461-3 ####[facility], [address] [place], [place]. Urine, squamous cells in sediment MANY Abnormal FEW/LPF [facility] Comment on above: Performed By: #### 6 9405-9, 00307-0n7, 22334-6 ####[facility], [address] [place], [place]. Urinalysis with Microscopic Automaticon 10-09-2017 Bilirubin Urine Negative Normal NEGATIVE [facility] Comment on above: Performed By: #### 6 9405-9, 86981-1m9, 62316-3 ####[facility], [address] [place], [place]. Nitrite Urine Negative Normal NEGATIVE [facility] Comment on above: Performed By: #### 6 9405-9, 12276-9k6, 31004-6 ####[facility], [address], [place]. Urine, appearance TURBID Abnormal CLEAR [facility] Comment on above: Performed By: #### 6 9405-9, 17957-3o9, 15451-1 ####[facility], [address] Urine, color PACHECO Normal YELLOW [facility] Comment on above: Performed By: #### 6 9405-9, 58307-6s3, 77831-2 ####[facility], [address] Urine, glucose presence 150MG/DL Abnormal NORMAL [facility] Comment on above: Performed By: #### 6 9405-9, 18066-3o3, 22617-5 ####[facility], [address] Urine, hemoglobin presence 10/UL Abnormal NEGATIVE [facility] Comment on above: Performed By: #### 6 9405-9, 03643-6a0, 32587-0 ####[facility], [address] [place], [place]. Urine, ketones presence 5MG/DL Abnormal NEGATIVE [facility] Comment on above: Performed By: #### 6 9405-9, 70155-5c4, 02298-5 ####[facility], [address] Urine, leukocyte esterase presence 25/UL Abnormal NEGATIVE [facility] Comment on above: Performed By: #### 6 9405-9, 21280-2m7, 88209-2 ####[facility], [address] [place], [place]. Urine, pH 5.0 [pH] Normal 4.5-8.0 [facility] Comment on above: Performed By: #### 6 9405-9, 00048-5r1, 41854-4 ####[facility], [address] [place], [place]. Urine, protein 30 mg/dL Abnormal NEGATIVE [facility] Comment on above: Performed By: #### 6 9405-9, 65038-3j1, 94487-0 ####[facility], [address] [place], [place]. Urine, specific gravity 1.032 High 1.002-1.030 [facility] Comment on above: Performed By: #### 6 9405-9, 16345-1p9, 58343-5 ####[facility], [address] [place] [address]. Urobilinogen Urine NORMAL Normal NORMAL [facility] Comment on above: Performed By: #### 6 9405-9, 77682-3a4, 87015-0 ####[facility], [address] [place] [address]. ED Physician Noteson 04-26-2 018 ED Physician Notes Chief Complaint Abdominal pain/Vaginal bleedED Assigned Provider/Time Time Seen: Poncho El / 09/27/2017 20:20History of Present Illness I have reviewed the nurse's note. I introduced myself as the Physician Corporate Executive and informed the patient of the supervising [...] today is wanting her. Patient has an [facility] physician who reside at [facility]. Patient is to look for a new one here in [place]. Patient denies any nausea or vomiting. No diarrhea. No urinary related symptoms. 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 No need for [...] El September 27, 2017 21:34 CompletedDone Normal [facility] ED Physician Notes PDF Normal [facility] Depart Summaryon 09-28-2017 Depart Summary EMERGENCY DEPARTMENT DISCHARGE SUMMARYPATIENT NAME:MELISSA BYRNE MRN: COL)-[id number]: 22 Years SEX: Female PHONE:[phone]: 09/27/2017 7:06 PM : 1995 ATTENDING PHYSICIAN:Raphael Cabezas MD PCP: Verona Hilliard MD CHIEF COMPLAINT: Abdominal pain/Vaginal bleed Allergies NKAProblems Active Mood disorder Diabetes DISCHARGE DIAGNOSIS: Dysfunctional uterine bleeding; Pelvic pain DISCHARGE INSTRUCTIONS: Dysfunctional Uterine Bleeding; Pelvic Pain, Female ED PHYSICIAN DOCUMENTATION: History of Present IllnessI have reviewed the nurse's note. ? I introduced myself as the Physician Corporate Executive and informed the patient of the supervising [...] started today?is wanting her. Patient has an [employer]ISTER [employer] physician who reside at [facility]. Patient?is to look for a new one here in?[place]. Patient?denies any nausea or vomiting. No diarrhea. [...] Patient will be advised to follow-up with [facility] clinic for further evaluation.?No need for any [...] Result(s): Date Order Results 09/27/2017 19:38 Specific [place] Urine POCT N 1.020 09/27/2017 19:38 pH [...] adnexal mass. No ovarian torsion.IUD in the uterus.[place] thanks you for the opportunity to care for your patient. Workstation ID: [id number] - [id number] FOLLOW UP:FOLLOW-UP APPOINTMENTS: Provider: Specialty: Address: Date: Verona Hilliard MD Family [address] [phone] (1) Follow-up as needed Provider: Specialty: Address: Date: [facility] ([address] [address] (7) Follow-up as needed Comment: Follow-up with [facility] also be further evaluated. Call Friday and make an appointment. Normal [facility] ED Pat Eduon 09-28-2017 ED Pat [address] [address] Emergency Department Discharge Instructions MELISSA BYRNE , Please provide this information to your Primary Care/Specialist Name : MELISSA BYRNE Current Date : 09/27/2017 23:44:47DOB : 1995 12:00 PM Primary Care Physician: Verona Hilliard MD Diagnosis : Dysfunctional uterine bleeding; Pelvic pain Follow-Up Instructions:MELISSA BYRNE has been given these follow-up instructions: FOLLOW-UP APPOINTMENTS: Provider: Specialty: Address: Date: Verona Hilliard MD Family Practice [address] [place] [address] [phone] (1) Follow-up as needed Provider: Specialty: Address: Date: [facility] ([facility]) [address] [place] [address] (4) Follow-up as needed Comment: Follow-up with [facility] also be further evaluated. Call Friday and [...] Servicios de Emergencia Name MELISSA BYRNE MRN ([facility])-[id number] PLEASE READ THE FOLLOWING REGARDING YOUR MEDICATIONS [...] doses are changed, or new medications (including vgom-gkm-zuojjwo products) are added. If you have any [...] TAKE UNTIL YOU TALK TO YOUR DOCTORNone [place] [address] Emergency Department Discharge Instructions Name: MELISSA BYRNE AMRITA Current Date: 09/27/2017 23:44:47 : 1995 12:00 PM Primary Physician: Verona Hilliard MD We would like to thank you for choosing [facility] for your emergency medical needs. We [...] health of those around you. Call the [place] [employer] at 3-842-ZRRH-[place] or the [place] Cancer Society at 2-320-UJG-6031 for more information.High blood pressure: Your screening blood pressure today was 118 mm Hg / . Hypertension (high blood pressure) is blood pressure over 120/80. People with hypertension should contact their primary care provider within 30 days to follow up. Check your patient portal for additional blood pressure information.Immunizatio ns:Immunization is a way to protect against deadly infections. Discuss this with your child's roof bolter helper, or Public Health Department. Your family practice doctor can determine if you need pneumonia or flu vaccine. [facility] Department can be reached at .Domestic [...] suicide hotline, anytime day or night, at 7-430-350-SPNB. Pharmacy Information:Below is a list of 24 hour pharmacies that we are aware of. We suggest that you call the specific pharmacy for their hours before traveling to a location. Hours may vary on holidays. [facility] Pharmacy [place] [address] [address] [place] [address] [phone] [address] [phone] [place] [address] [phone] [address] [phone] [address] [phone] [place] [address] [phone] [place] [address] [phone] Take all medications as directed. If you need prescription assistance, contact the following agencies:?? Partnership for Prescription Assistance at or www.pparx.org?? [facility] at or www.Ecopolbestrx.org?? www.MultistatRYour Practical Solutions.[employer] is a site with many valuable [...] or later than usual. They may be senior speech pathologist, have blood clots or be heavier. 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 [...] Document Reviewed: 08/21/2015Albanevpapa Interactive Patient Education ?2016 [employer].Pelvic Pain, FemaleFemale pelvic pain can be caused [...] vaginal discharge.???Blood tests. HOME CARE INSTRUCTIONS???Only take vdsv-liw-azteoma or prescription medicines for pain, discomfort, or [...] Document Reviewed: 09/14/2012Francisca Interactive Patient Education ?2016 [employer]><><><><><><><><>< ><><><><><><><><><><><> <><><><> Patient Visit Summary Signature MELISSA BYRNE has been given the following list of patient education materials, prescriptions and follow-up instructions: CHAVEZ Cox ALEXANDRIA JUSTINE, have received the above patient education materials/instructions and have verbalized understanding: Date Time Patien t Signature Date Time Provid er Signature Normal [facility] [place] Duplex Abd/Pelvis Retrope r Completeon [...] adnexal mass. No ovarian torsion.IUD in the uterus.[place] thanks you for the opportunity to care for your patient. Workstation ID: [id number] - [id number] FINAL REPORT Dictated By: Hiro Newberry MD 09/27/2017 22:18Assigned Physician: Hiro Newberry MD JReviepablo and Electronically Signed By: Hiro Newberry MD 09/27/2017 22:21Transcribed by: TAMI 09/27/2017 22:18Technologist: SIMI Heredia [facility] [place] Pelvis Non-OB Completeon 09-28-2017 US [...] adnexal mass. No ovarian torsion.IUD in the uterus.[place] thanks you for the opportunity to care for your patient. Workstation ID: [id number] - [id number] FINAL REPORT Dictated By: Hiro Newberry MD 09/27/2017 22:18Assigned Physician: Hiro Newberry MD JRjanice and Electronically Signed By: Hiro Newberry MD 09/27/2017 22:21Transcribed by: TAMI 09/27/2017 22:18Technologist: SIMI Heredia [facility] US Transvaginalon 09-28-2017 US Transvaginal EXAMINATION [...] adnexal mass. No ovarian torsion.IUD in the uterus.[place] thanks you for the opportunity to care for your patient. Workstation ID: [id number] - [id number] FINAL REPORT Dictated By: Hiro Newberry MD 09/27/2017 22:18Assigned Physician: Hiro Newberry MD and Electronically Signed By: Hiro Newberry MD 09/27/2017 22:21Transcribed by: TAMI 09/27/2017 22:18Technologist: SIMI Heredia [facility] Basic Metabolic Panelon 09-07 Anion gap 11.0 mmol/L Normal 6.0-18.0 [facility] Comment on above: Result Comment: CARSON BARKER NOTE:The calculated Anion Gap(AGAP) does not include Potassium. Performed By: #### 6 9405-9, 08638-6w3, 59240-6 ####[facility], [address] [place], [place]. Calcium 9.9 mg/dL Normal 8.9-10.3 [facility] Comment on above: Performed By: #### 6 9405-9, 02562-9n5, 79604-1 ####[facility], [address] [place], [place]. Chloride 101 mmol/L Normal 98-107 [facility] Comment on above: Performed By: #### 6 9405-9, 09576-5l6, 39021-0 ####[facility], [address], [place]. CO2 22 mmol/L Normal 22-32 [facility] Comment on above: Performed By: #### 6 9405-9, 22632-4m3, 45335-6 ####[facility], [address]. Creatinine 0.56 mg/dL Low 0.66-1.30 [facility] Comment on above: Performed By: #### 6 9405-9, 83015-7j2, 77315-1 ####[facility], [address], [place]. Glucose mass conc 252 mg/dL High 70-110 [facility] Comment on above: Performed By: #### 6 9405-9, 82463-0d2, 29306-4 ####[facility], [address] [place]. Potassium molar conc 3.9 mmol/L Normal 3.6-5.1 [facility] Comment on above: Performed By: #### 6 9405-9, 87143-8x6, 56733-2 ####[facility], [address]. Sodium 134 mmol/L Low 136-145 [facility] Comment on above: Performed By: #### 6 9405-9, 00183-8g3, 96990-3 ####[facility], [address] [place], [place]. Urea nitrogen 12 mg/dL Normal 8-20 [facility] Comment on above: Performed By: #### 6 9405-9, 14193-4k1, 71826-1 ####[facility], [address] CBCon 09-18-2017 Erythrocyte distribution width Auto Ratio (RBC) 14.3 % Normal 11.0-14.8 [facility] Comment on above: Performed By: #### 2 4317-0 ####[facility], [address]. Erythrocytes (RBC) 5.98 million/mcL High 3.80-5.10 [facility] Comment on above: Performed By: #### 2 4317-0 ####[facility], [address] [place], [place]. Hematocrit (HCT) 45.7 % High 35.0-45.0 [facility] Comment on above: Performed By: #### 2 4317-0 ####KSGRE[facility], [address] [place], [place]. Hemoglobin mass conc (Bld) 15.3 g/dL Normal 12.0-16.0 [facility] Comment on above: Performed By: #### 2 7-0 ####[facility], [address] [place], [place]. MCH 25.6 Picograms Low 27.0-34.0 [facility] Comment on above: Performed By: #### 2 4317-0 ####[facility], [address] [place], [place]. MCHC mass conc (RBC) 33.5 g/dL Normal 32.0-36.0 [facility] Comment on above: Performed By: #### 2 7-0 ####[facility], [address] [place], [place]. MCV 76.5 fL Low 80.0-97.0 [facility] Comment on above: Performed By: #### 2 4317-0 ####[facility], [address] [place], [place]. Platelet mean volume (PMV) 8.0 fL Normal 6.2-12.1 [facility] Comment on above: Performed By: #### 2 4317-0 ####[facility], [address] [place], [place]. Platelets 330 thou/mcL Normal 142-424 [facility] Comment on above: Performed By: #### 2 4317-0 ####[facility], [address] [place], [place]. WBC (Leukocytes) 9.9 thou/mcL Normal 4.6-10.2 [facility] Comment on above: Performed By: #### 2 4317-0 ####[facility], [address] [place] [address]. Depart Summaryon 09-18-2017 Depart Summary EMERGENCY DEPARTMENT DISCHARGE SUMMARYPATIENT NAME:MELISSA BYRNE : 22 Years SEX: Female PHONE:[phone]: 09/18/2017 2:10 PM : 1995 ATTENDING PHYSICIAN:Josie [...] Result(s): Date Order Results 09/18/2017 15:25 Specific [place] Urine POCT N 1.020 09/18/2017 15:25 pH [...] fluid. This may simply be physiologic in nature.[place] thanks you for the opportunity to care [...] fluid. This may simply be physiologic in nature.[place] thanks you for the opportunity to care for your patient. Workstation ID: [id number] - [id number] FOLLOW UP:FOLLOW-UP APPOINTMENTS: Provider: Specialty: Address: Date: Verona Hilliard MD Family Practice [address] [place] [address] [phone] (1) 1 to 2 days Normal [facility] ED Pat Eduon 09-18-2017 ED Pat [place] [address] [facility] Discharge Instructions MELISSA BYRNE , Please provide this information to your Primary Care/Specialist Name : MELISSA BYRNE Current Date : 09/18/2017 17:27:36DOB : 1995 12:00 PM Primary Care Physician: Verona Hilliard MD Diagnosis : Hyperglycemia; Pelvic pain Follow-Up Instructions:MELISSA BYRNE has been given these follow-up instructions: FOLLOW-UP APPOINTMENTS: Provider: Specialty: Address: Date: Verona Hilliard MD [address] [phone] (1) 1 to 2 days Laboratory Orders: [...] [facility] Name MELISSA BYRNE MRN (COL)-[id number] PLEASE READ THE FOLLOWING REGARDING YOUR MEDICATIONS [...] doses are changed, or new medications (including ivkn-rnj-tnvuosf products) are added. If you have any [...] TAKE UNTIL YOU TALK TO YOUR DOCTORNone [place] [address] [facility] Department Discharge Instructions Name: MELISSA BYRNE Current Date: 09/18/2017 17:27:36 : 1995 12:00 PM Primary Physician: Verona Hilliard MD We would like to thank you for choosing [facility] for your emergency medical needs. We [...] health of those around you. Call the [place] [employer] at 5-112-FRQW-[place] or the [place] [employer] at 1-524-NTT-2733 for more information.High blood pressure: Your screening blood pressure today was 132 mm Hg / . Hypertension (high blood pressure) is blood pressure over 120/80. People with hypertension should contact their primary care provider within 30 days to follow up. Check your patient portal for additional blood pressure information.Immunizatio ns:Immunization is a way to protect against deadly infections. Discuss this with your child's roof bolter helper, or Public Health Department. Your family practice doctor can determine if you need pneumonia or flu vaccine. [facility] can be reached at .Domestic Violence:If you [...] suicide hotline, anytime day or night, at 2-169-803-PEUG. Pharmacy Information:Below is a list of 24 hour pharmacies that we are aware of. We suggest that you call the specific pharmacy for their hours before traveling to a location. Hours may vary on holidays. [facility] [address] [address] [phone] [address] [phone] [address] [phone] [place] [address] [phone] [place] [address] [phone] [place] [address] [phone] [place] [address] [phone] Take all medications as directed. If you need prescription assistance, contact the following agencies:?? [facility] for Prescription Assistance at or www.[employer].org?? [facility] Rx at or www.HuJe labsstrx.org?? [employer] is a site with many valuable coupons [...] alleviate any discomfort you are experiencing:???Only take gllg-ues-kwbwutq or prescription medicines as directed by your [...] Document Reviewed: 02/02/2014Francisca Interactive Patient Education ?2016 [employer].Obstetrics and GynecologyPelvic Pain, FemaleFemale pelvic pain can [...] vaginal discharge.???Blood tests. HOME CARE INSTRUCTIONS???Only take kobl-pxw-unxfiep or prescription medicines for pain, discomfort, or [...] Document Reviewed: 09/14/2012Francisca Interactive Patient Education ?2016 [employer].Preventive MedicineBlood Glucose Monitoring, AdultMonitoring your blood glucose [...] Document Reviewed: 10/18/2013Francisca Interactive Patient Education ?2016 [employer]><><><><><><><><>< ><><><><><><><><><>< ><><><><><> Patient Visit Summary Signature MELISSA BYRNE has been given the following list of patient education materials, prescriptions and follow-up instructions: CHAVEZ Cox ALEXANDRIA JUSTINE, have received the above patient education materials/instructions and have verbalized understanding: Date Time Patien t Signature Date Time Provid er Signature Normal [facility] ED Physician Noteson 018 ED Physician [...] Patient is a 26 years old left [place] male with no known significant past medical [...] and patient was advised to follow-up with PCP/AIR TWISTER WINDER. Patient will be prescribed naproxen for pain [...] This may simply be physiologic in nature. [place] thanks you for the opportunity to care for your patient. Workstation ID: [id number] - [id number] ORDERS PLACED: Laboratory Urinalysis Manual POCT (CO) Pon[place] September 18, 2017 15:07 Completed Urine Test [facility] (CO) [facility] 15:08 Completed CBC Reynaldo GOODWIN [facility] September 18, 2017 15:28 Completed BMP (Basic Metabolic Panel) Reynaldo GOODWIN [facility] September 18, 2017 15:29 Completed GFRAF Reynaldo GOODWIN [facility] September 18, 2017 16:01 Completed GFRNAF Reynaldo GOODWIN [facility] September 18, 2017 16:01 Completed Xray [place] Duplex Abd/Pelvis Retroper Complete [place] September 18, 2017 15:[address] / MRI / Ultrasound US Transvaginal [facility], [facility] 15:58 Completed Ultrasound Pelvis Non-OB Complete [facility] September 18, 2017 15:29 Completed Normal [facility] ED Physician Notes PDF Normal [facility] GFRaaon 09-18-2017 eGFR (black) mL/min/{1.73_m2} Normal [facility] Comment on above: Result Comment: The MDRD equation has not been validated for those over 70 years, women, patients with serious co-morbid conditions, or with extremes of bodysize, muscle mass of nutritional status. Performed By: #### 6 9405-9, 30125-9x2, 73661-4 ####[facility], [address] [place], [place]. GFRbbon 09-18-2017 eGFR (non-black) mL/min/{1.73_m2} Normal [facility] Comment on above: Performed By: #### 6 9405-9, 83791-9g3, 62722-8 ####[facility], [address] [facility] [address] [place] Duplex Abd/Pelvis Retrope r Completeon [...] 17:01Transcribed by: TAMI 09/18/2017 16:58Technologist: LG Normal [facility] US Pelvis Non-OB Completeon 09-18-2017 US [...] fluid. This may simply be physiologic in nature.[place] thanks you for the opportunity to care for your patient. Workstation ID: [id number] - [id number] FINAL REPORT Dictated By: Miguel Espinosa MD 09/18/2017 16:58Assigned Physician: Miguel Espinosa MD CRenathanaeld and Electronically Signed By: Miguel Espinosa MD 09/18/2017 17:01Transcribed by: TAMI 09/18/2017 16:58Technologist: LARA Normal [facility] US Transvaginalon 09-18-2017 US Transvaginal TRANSABDOMINAL [...] fluid. This may simply be physiologic in nature.[place] thanks you for the opportunity to care for your patient. Workstation ID: [id number] - [id number] FINAL REPORT Dictated By: Miguel Espinosa MD 09/18/2017 16:58Assigned Physician: Miguel Espinosa MD CReviewed and Electronically Signed By: Miguel Espinosa MD 09/18/2017 17:01Transcribed by: TAMI 09/18/2017 16:58Technologist: LARA Normal [facility] Vital Signs Date Time Vital Sign Value Performing Clinician Facility 10-01-2025 08:17-0400 Body height 157.5 cm Jamari Byrne MD Work Phone: [facility] 03-09-2025 08:17-0400 Body mass index (BMI) [Ratio] 32.74 kg/m2 Jamari Byrne MD Work Phone: [facility] 03-09-2025 08:17-0400 Body weight 81.19 kg Jamari Byrne MD Work Phone: [facility] 03-09-2025 08:17-0400 Diastolic blood pressure 80 mm[Hg] Jamari Byrne MD Work Phone: [facility] 03-09-2025 08:17-0400 Heart rate 78 /min Jamari Byrne MD Work Phone: [facility] 03-09-2025 08:17-0400 SaO2% (BldA) [Mass fraction] 100 % Jamari Byrne MD Work Phone: [facility] 03-09-2025 08:17-0400 Systolic blood pressure 128 mm[Hg] Jamari Byrne MD Work Phone: [facility] 02-21-2025 18:16-0400 Body mass index (BMI) [Ratio] 33.16 kg/m2 Leonie Galarza APRN-BUSINESS OBJECTS DEVELOPER Work Phone: [facility] 02-21-2025 18:16-0400 Body temperature 98.4 [degF] Leonie Galarza ASSISTANT WAREHOUSE MANAGER-BUSINESS OBJECTS DEVELOPER Work Phone: [facility] 02-21-2025 18:16-0400 Body weight 82.24 kg Leonie Galarza APRN-BUSINESS OBJECTS DEVELOPER Work Phone: [facility] 02-21-2025 18:16-0400 Diastolic blood pressure 85 mm[Hg] Leonie Galarza ASSISTANT WAREHOUSE MANAGER-BUSINESS OBJECTS DEVELOPER Work Phone: [facility] 02-21-2025 18:16-0400 Heart rate 118 /min Leonie Michell ASSISTANT WAREHOUSE MANAGER-BUSINESS OBJECTS DEVELOPER Work Phone: [facility] 02-21-2025 18:16-0400 SaO2% (BldA) [Mass fraction] 97 % Leonie Galarza ASSISTANT WAREHOUSE MANAGER-BUSINESS OBJECTS DEVELOPER Work Phone: [facility] 02-21-2025 18:16-0400 Systolic blood pressure 140 mm[Hg] Leonie Galarza ASSISTANT WAREHOUSE MANAGER-BUSINESS OBJECTS DEVELOPER Work Phone: [facility] 02-19-2025 10:25-0400 Body mass index (BMI) [Ratio] 33.44 kg/m2 Ángela Praisler-Wood ASSISTANT WAREHOUSE MANAGER.BUSINESS OBJECTS DEVELOPER Work Phone: [facility] 02-19-2025 10:25-0400 Body temperature 98.6 [degF] Ángela Praisler-Wood ASSISTANT WAREHOUSE MANAGER.BUSINESS OBJECTS DEVELOPER Work Phone: [facility] 02-19-2025 10:25-0400 Body weight 84 kg Ángela Praisler-Wood ASSISTANT WAREHOUSE MANAGER.BUSINESS OBJECTS DEVELOPER Work Phone: [facility] 02-19-2025 10:25-0400 Diastolic blood pressure 76 mm[Hg] Ángela Praisler-Wood ASSISTANT WAREHOUSE MANAGER.BUSINESS OBJECTS DEVELOPER Work Phone: [facility] 02-19-2025 10:25-0400 Heart rate 105 /min Ángela Praisler-Wood ASSISTANT WAREHOUSE MANAGER.BUSINESS OBJECTS DEVELOPER Work Phone: [facility] 02-19-2025 10:25-0400 Respiratory rate 18 /min Ángela Praisler-Wood ASSISTANT WAREHOUSE MANAGER.BUSINESS OBJECTS DEVELOPER Work Phone: [facility] 02-19-2025 10:25-0400 SaO2% (BldA) [Mass fraction] 98 % Ángela Praisler-Wood ASSISTANT WAREHOUSE MANAGER.BUSINESS OBJECTS DEVELOPER Work Phone: [facility] 02-19-2025 10:25-0400 Systolic blood pressure 118 mm[Hg] Ángela Praisler-Wood ASSISTANT WAREHOUSE MANAGER.BUSINESS OBJECTS DEVELOPER Work Phone: [facility] 01-31-2025 16:33-0400 Body mass index (BMI) [Ratio] 34.09 kg/m2 Jamari Byrne MD Work Phone: [facility] 01-31-2025 16:33-0400 Body weight 84.55 kg Jamari Byrne MD Work Phone: [facility] 01-31-2025 16:33-0400 Diastolic blood pressure 90 mm[Hg] Jamari Byrne MD Work Phone: [facility] 01-31-2025 16:33-0400 Heart rate 96 /min Jamari Byrne MD Work Phone: [facility] 01-31-2025 16:33-0400 SaO2% (BldA) [Mass fraction] 98 % Jamair Byrne MD Work Phone: [facility] 01-31-2025 16:33-0400 Systolic blood pressure 130 mm[Hg] Jamari Byrne MD Work Phone: [facility] 01-28-2025 14:15-0400 Body mass index (BMI) [Ratio] 34.63 kg/m2 Issac Swank ASSISTANT WAREHOUSE MANAGER.BUSINESS OBJECTS DEVELOPER Work Phone: [facility] 01-28-2025 14:15-0400 Body temperature 97.81 [degF] Issac Swank ASSISTANT WAREHOUSE MANAGER.BUSINESS OBJECTS DEVELOPER Work Phone: [facility] 01-28-2025 14:15-0400 Body weight 87 kg Issac Swank ASSISTANT WAREHOUSE MANAGER.BUSINESS OBJECTS DEVELOPER Work Phone: [facility] 01-28-2025 14:15-0400 Diastolic blood pressure 83 mm[Hg] Issac Swank ASSISTANT WAREHOUSE MANAGER.BUSINESS OBJECTS DEVELOPER Work Phone: [facility] 01-28-2025 14:15-0400 Heart rate 102 /min Issac Swank ASSISTANT WAREHOUSE MANAGER.BUSINESS OBJECTS DEVELOPER Work Phone: [facility] 01-28-2025 14:15-0400 Respiratory rate 20 /min Issac Swank ASSISTANT WAREHOUSE MANAGER.BUSINESS OBJECTS DEVELOPER Work Phone: [facility] 01-28-2025 14:15-0400 SaO2% (BldA) [Mass fraction] 98 % Issac Swank ASSISTANT WAREHOUSE MANAGER.BUSINESS OBJECTS DEVELOPER Work Phone: [facility] 01-28-2025 14:15-0400 Systolic blood pressure 122 mm[Hg] Issac Swank ASSISTANT WAREHOUSE MANAGER.BUSINESS OBJECTS DEVELOPER Work Phone: [facility] 01-26-2025 22:00-0400 Body temperature 97.9 [degF] Dr. Jamari Byrne MD Work Phone: [facility] 01-26-2025 22:00-0400 Diastolic blood pressure 89 mm[Hg] Dr. Jamari Byrne MD Work Phone: [facility] 01-26-2025 22:00-0400 Heart rate 89 /min Dr. Jamari Byrne MD Work Phone: [facility] 01-26-2025 22:00-0400 Respiratory rate 16 /min Dr. Jamari Byrne MD Work Phone: [facility] 01-26-2025 22:00-0400 SaO2% (BldA) [Mass fraction] 97 % Dr. Jamari Byrne MD Work Phone: [facility] 01-26-2025 22:00-0400 Systolic blood pressure 132 mm[Hg] Dr. Jamari Byrne MD Work Phone: [facility] 01-26-2025 18:44-0400 Body height 157.[address] Jamari Byrne MD Work Phone: [facility] 01-26-2025 18:44-0400 Body mass index (BMI) [Ratio] 35.6 kg/m2 Dr. Jamari Byrne MD Work Phone: [facility] 01-26-2025 18:44-0400 Body weight 88.[address] Jamari Byrne MD Work Phone: [facility] 01-24-2025 16:58-0400 Diastolic blood pressure 82 mm[Hg] Ty Shannon DO Work Phone: [facility] 01-24-2025 16:58-0400 Heart rate 79 /min Ty Shannon DO Work Phone: [facility] 01-24-2025 16:58-0400 Respiratory rate 14 /min Ty Tomersen DO Work Phone: [facility] 01-24-2025 16:58-0400 SaO2% (BldA) [Mass fraction] 98 % Ty Tomersen DO Work Phone: 1(853)035-160536 [place] [address] 01-24-2025 16:58-0400 Systolic blood pressure 147 mm[Hg] Ty Tmoersen DO Work Phone: 3(134)488-421536 [place] [address] 01-24-2025 14:10-0400 Body height 157.5 cm Ty Tomersen DO Work Phone: 3(294)965-040036 [place] [address] 01-24-2025 14:10-0400 Body mass index (BMI) [Ratio] 34.57 kg/m2 Ty Shannon DO Work Phone: 0(644)[phone] [place] [address] 01-24-2025 14:10-0400 Body temperature 98.01 [degF] Ty Tomersen DO Work Phone: 1(905)634-393236 [place] [address] 01-24-2025 14:10-0400 Body weight 85.73 kg Ty Tomersen DO Work Phone: 2(163)195-097636 [place] [address] 01-23-2025 23:30-0400 Body temperature 98 [degF] Dr. Jamari Byrne MD Work Phone: [facility] 01-23-2025 23:30-0400 Diastolic blood pressure 75 mm[Hg] Dr. Jamari Byrne MD Work Phone: [facility] 01-23-2025 23:30-0400 Heart rate 74 /min Dr. Jamari Byrne MD Work Phone: [facility] 01-23-2025 23:30-0400 Respiratory rate 16 /min Dr. Jamari Byrne MD Work Phone: [facility] 01-23-2025 23:30-0400 SaO2% (BldA) [Mass fraction] 99 % Dr. Jamari Byrne MD Work Phone: [facility] 01-23-2025 23:30-0400 Systolic blood pressure 148 mm[Hg] Dr. Jamari Byrne MD Work Phone: [facility] 01-23-2025 21:07-0400 Body height 157.[address] Jamari Byrne MD Work Phone: [facility] 01-23-2025 21:07-0400 Body mass index (BMI) [Ratio] 36.6 kg/m2 Dr. Jamari Byrne MD Work Phone: [facility] 01-23-2025 21:07-0400 Body weight 90.[address] Jamari Byrne MD Work Phone: 3(965)848-311808 [address] 01-21-2025 00:34-0400 Body temperature 97.9 [degF] Dr. Jamari Byrne MD Work Phone: [facility] 01-21-2025 00:34-0400 Diastolic blood pressure 84 mm[Hg] Dr. Jamari Byrne MD Work Phone: [facility] 01-21-2025 00:34-0400 Heart rate 100 /min Dr. Jamari Byrne MD Work Phone: [facility] 01-21-2025 00:34-0400 Respiratory rate 20 /min Dr. Jamari Byrne MD Work Phone: [facility] 01-21-2025 00:34-0400 SaO2% (BldA) [Mass fraction] 100 % Dr. Jamari Byrne MD Work Phone: [facility] 01-21-2025 00:34-0400 Systolic blood pressure 123 mm[Hg] Dr. aJmari Byrne MD Work Phone: [facility] 01-20-2025 22:32-0400 Body height 157.[address] Jamari Byrne MD Work Phone: 8(904)712-236408 [place] [address] 01-20-2025 22:32-0400 Body mass index (BMI) [Ratio] 37.8 kg/m2 Dr. Jamari Byrne MD Work Phone: [facility] 01-20-2025 22:32-0400 Body weight 93.[address] Jamari Byrne MD Work Phone: [facility] 01-20-2025 10:16-0400 Body mass index (BMI) [Ratio] 37.5 kg/m2 Kelsy Radha DO Work Phone: [facility] 01-20-2025 10:16-0400 Body weight 94.2 kg Kelsy Radha DO Work Phone: [facility] 01-20-2025 10:16-0400 Diastolic blood pressure 78 mm[Hg] Kelsy Radha DO Work Phone: [facility] 01-20-2025 10:16-0400 Heart rate 91 /min Kelsy Radha DO Work Phone: [facility] 01-20-2025 10:16-0400 Systolic blood pressure 100 mm[Hg] Kelsy Radha DO Work Phone: [facility] 01-19-2025 13:15-0400 Body mass index (BMI) [Ratio] 37.01 kg/m2 Whit Schulte MD Work Phone: [facility] 01-19-2025 13:15-0400 Body weight 92.99 kg Whit Schulte MD Work Phone: [facility] 01-19-2025 13:15-0400 Diastolic blood pressure 70 mm[Hg] Whit Schulte MD Work Phone: [facility] [facility] 01-[facility]25 13:15-0400 Systolic blood pressure 126 mm[Hg] Whit Schulte MD Work Phone: [facility] 12-21-2024 13:46-0400 Body mass index (BMI) [Ratio] 34.85 kg/m2 William Gramajo MD Work Phone: [facility] 12-21-2024 13:46-0400 Body weight 87.54 kg William Gramajo MD Work Phone: [facility] 12-21-2024 13:46-0400 Diastolic blood pressure 70 mm[Hg] William Gramajo MD Work Phone: [facility] 12-21-2024 13:46-0400 Systolic blood pressure 118 mm[Hg] William Gramajo MD Work Phone: [facility] 12-16-2024 20:40-0400 Diastolic blood pressure 70 mm[Hg] Dr. Jamari Byrne MD Work Phone: [facility] 12-16-2024 20:40-0400 Heart rate 75 /min Dr. Jamari Byrne MD Work Phone: [facility] 12-16-2024 20:40-0400 Systolic blood pressure 115 mm[Hg] Dr. Jamari Byrne MD Work Phone: [facility] 12-16-2024 20:12-0400 Body height 157.[address] Jamari Byrne MD Work Phone: [facility] 12-16-2024 20:12-0400 Body mass index (BMI) [Ratio] 79.3 kg/m2 Dr. Jamari Byrne MD Work Phone: [facility] 12-16-2024 20:12-0400 Body weight 196.[address] Jamari Byrne MD Work Phone: [facility] 12-16-2024 20:00-0400 Body temperature 97.9 [degF] Dr. Jamari Byrne MD Work Phone: [facility] 12-16-2024 20:00-0400 Respiratory rate 18 /min Dr. Jamari Byrne MD Work Phone: [facility] 12-16-2024 20:00-0400 SaO2% (BldA) [Mass fraction] 98 % Dr. Jamari Byrne MD Work Phone: [facility] 12-09-2024 07:37-0400 Diastolic blood pressure 80 mm[Hg] Dr. Jamari Byrne MD Work Phone: [facility] 12-09-2024 07:37-0400 Heart rate 84 /min Dr. Jamari Byrne MD Work Phone: [facility] 12-09-2024 07:37-0400 Systolic blood pressure 136 mm[Hg] Dr. Jamari Bryne MD Work Phone: [facility] 12-09-2024 07:35-0400 Body temperature 96.4 [degF] Dr. Jamari Byrne MD Work Phone: [facility] 12-09-2024 07:35-0400 Respiratory rate 16 /min Dr. Jamari Byrne MD Work Phone: [facility] 12-09-2024 07:35-0400 SaO2% (BldA) [Mass fraction] 98 % Dr. Jamari Byrne MD Work Phone: [facility] 12-08-2024 20:31-0400 Inhaled oxygen flow rate 98 L/min Dr. Jamari Byrne MD Work Phone: [facility] 12-07-2024 11:10-0400 Body height 157.[address] Jamari Byrne MD Work Phone: [facility] 12-07-2024 11:10-0400 Body mass index (BMI) [Ratio] 38.7 kg/m2 Dr. Jamari Byrne MD Work Phone: [facility] 12-07-2024 11:10-0400 Body weight [address] Jamari Byrne MD Work Phone: [facility] 12-06-2024 09:46-0400 Body mass index (BMI) [Ratio] 38.1 kg/m2 Ronaldo Rubio MD Work Phone: [facility] 12-06-2024 09:46-0400 Body weight 95.71 kg Ronaldo Rubio MD Work Phone: [facility] 12-06-2024 09:46-0400 Diastolic blood pressure 70 mm[Hg] Ronaldo Rubio MD Work Phone: [facility] 12-06-2024 09:46-0400 Systolic blood pressure 116 mm[Hg] Ronaldo Rubio MD Work Phone: [facility] 12-02-2024 10:04-0400 Body mass index (BMI) [Ratio] 38.28 kg/m2 Keshav Loving MD Work Phone: [facility] 12-02-2024 10:04-0400 Body weight 96.16 kg Keshav Loving MD Work Phone: [facility] 12-02-2024 10:04-0400 Diastolic blood pressure 72 mm[Hg] Keshav Loving MD Work Phone: [facility] 12-02-2024 10:04-0400 Systolic blood pressure 104 mm[Hg] Keshav Loving MD Work Phone: [facility] 11-30-2024 15:35-0400 Body mass index (BMI) [Ratio] 38.1 kg/m2 [facility] 11-30-2024 15:35-0400 Body weight 95.71 kg [facility] 11-30-2024 15:35-0400 Diastolic blood pressure 64 mm[Hg] [facility] 11-30-2024 15:35-0400 Systolic blood pressure 128 mm[Hg] [facility] 11-25-2024 08:37-0400 Body mass index (BMI) [Ratio] 37.56 kg/m2 William Gramajo MD Work Phone: [facility] 11-25-2024 08:37-0400 Body weight 94.35 kg William Gramajo MD Work Phone: [facility] 11-25-2024 08:37-0400 Diastolic blood pressure 79 mm[Hg] William Gramajo MD Work Phone: [facility] 11-25-2024 08:37-0400 Systolic blood pressure 123 mm[Hg] William Gramajo MD Work Phone: [facility] 11-22-2024 09:17-0400 Diastolic blood pressure 70 mm[Hg] [facility] 11-22-2024 09:17-0400 Systolic blood pressure 126 mm[Hg] [facility] 11-18-2024 14:25-0400 Body mass index (BMI) [Ratio] 37.95 kg/m2 Keshav Loving MD Work Phone: [facility] 11-18-2024 14:25-0400 Body weight 95.35 kg Keshav Loving MD Work Phone: [facility] 11-18-2024 14:25-0400 Diastolic blood pressure 80 mm[Hg] Keshav Loving MD Work Phone: [facility] 11-18-2024 14:25-0400 Systolic blood pressure 119 mm[Hg] Keshav Loving MD Work Phone: [facility] 11-15-2024 16:13-0400 Diastolic blood pressure 75 mm[Hg] Dr. Jamari Byrne MD Work Phone: [facility] 11-15-2024 16:13-0400 Heart rate 96 /min Dr. Jamari Byrne MD Work Phone: [facility] 11-15-2024 16:13-0400 Systolic blood pressure 118 mm[Hg] Dr. Jamari Byrne MD Work Phone: [facility] 11-15-2024 16:12-0400 Body temperature 97.5 [degF] Dr. Jamari Byrne MD Work Phone: [facility] 11-15-2024 16:12-0400 Respiratory rate 16 /min Dr. Jamari Byrne MD Work Phone: [facility] 11-15-2024 16:12-0400 SaO2% (BldA) [Mass fraction] 98 % Dr. Jamari Byrne MD Work Phone: [facility] 11-15-2024 16:01-0400 Body height 157.[address] Jamari Byrne MD Work Phone: [facility] 11-15-2024 16:01-0400 Body mass index (BMI) [Ratio] 37.8 kg/m2 Dr. Jamari Byrne MD Work Phone: [facility] 11-15-2024 16:01-0400 Body weight 93.[address] Jamari Byrne MD Work Phone: [facility] 11-15-2024 08:29-0400 Body mass index (BMI) [Ratio] 37.66 kg/m2 Keshav Loving MD Work Phone: [facility] 11-15-2024 08:29-0400 Body weight 94.62 kg Keshav Loving MD Work Phone: [facility] 11-15-2024 08:29-0400 Diastolic blood pressure 68 mm[Hg] Keshav Loving MD Work Phone: [facility] 11-15-2024 08:29-0400 Systolic blood pressure 120 mm[Hg] Keshav Loving MD Work Phone: [facility] 11-11-2024 09:12-0400 Body mass index (BMI) [Ratio] 37.01 kg/m2 Krys Kulkarni MD Work Phone: [facility] 11-11-2024 09:12-0400 Body weight 92.99 kg Krys Kulkarni MD Work Phone: [facility] 11-11-2024 09:12-0400 Diastolic blood pressure 70 mm[Hg] Krys Kulkarni MD Work Phone: [facility] Comment on above: true bp 116/79; 109/75; 109/75; 108/74; 101/67; 108/74 11-11-2024 09:12-0400 Systolic blood pressure 128 mm[Hg] Krys Kulkarni MD Work Phone: [facility] Comment on above: true bp 116/79; 109/75; 109/75; 108/74; 101/67; 108/74 11-08-2024 09:29-0400 Diastolic blood pressure 64 mm[Hg] [facility] 11-08-2024 09:29-0400 Systolic blood pressure 126 mm[Hg] [facility] 11-05-2024 10:18-0400 Body mass index (BMI) [Ratio] 37.12 kg/m2 Krys Kulkarni MD Work Phone: [facility] 11-05-2024 10:18-0400 Body weight 93.26 kg Krys Kulkarni MD Work Phone: [facility] 11-05-2024 10:18-0400 Diastolic blood pressure 77 mm[Hg] Krys Kulkarni MD Work Phone: [facility] 11-05-2024 10:18-0400 Systolic blood pressure 114 mm[Hg] Krys Kulkarni MD Work Phone: [facility] 11-04-2024 09:43-0400 Body mass index (BMI) [Ratio] 37.34 kg/m2 Kelsy Radha DO Work Phone: [facility] 11-04-2024 09:43-0400 Body weight 93.8 kg Kelsy Radha DO Work Phone: [facility] 11-04-2024 09:43-0400 Diastolic blood pressure 68 mm[Hg] Kelsy Radha DO Work Phone: [facility] 11-04-2024 09:43-0400 Heart rate 102 /min Kelsy Radha DO Work Phone: [facility] 11-04-2024 09:43-0400 Systolic blood pressure 104 mm[Hg] Kelsy Radha DO Work Phone: [facility] 11-02-2024 09:36-0400 Body mass index (BMI) [Ratio] 37.41 kg/m2 [facility] 11-02-2024 09:36-0400 Body weight 93.98 kg [facility] 11-02-2024 09:36-0400 Diastolic blood pressure 60 mm[Hg] [facility] 11-02-2024 09:36-0400 Systolic blood pressure 112 mm[Hg] [employer] [facility] 10-25-2024 09:21-0400 Body mass index (BMI) [Ratio] 36.47 kg/m2 Piper Julian MD Work Phone: [facility] 10-25-2024 09:21-0400 Body weight 91.63 kg Piper Julian MD Work Phone: [facility] 10-25-2024 09:21-0400 Diastolic blood pressure 71 mm[Hg] Piper Julian MD Work Phone: [facility] 10-25-2024 09:21-0400 Systolic blood pressure 114 mm[Hg] Piper Julian MD Work Phone: [facility] 10-18-2024 13:38-0400 Body mass index (BMI) [Ratio] 36.11 kg/m2 Whit Schulte MD Work Phone: [facility] 10-18-2024 13:38-0400 Body weight 90.72 kg Whit Schulte MD Work Phone: [facility] 10-18-2024 13:38-0400 Diastolic blood pressure 60 mm[Hg] Whit Schulte MD Work Phone: [facility] 10-18-2024 13:38-0400 Systolic blood pressure 110 mm[Hg] Whit Schulte MD Work Phone: [facility] 10-16-2024 17:56-0400 Body temperature 98.1 [degF] Dr. Jamari Byrne MD Work Phone: [facility] 10-16-2024 17:56-0400 Diastolic blood pressure 71 mm[Hg] Dr. Jamari Byrne MD Work Phone: [facility] 10-16-2024 17:56-0400 Heart rate 96 /min Dr. Jamari Byrne MD Work Phone: [facility] 10-16-2024 17:56-0400 Respiratory rate 14 /min Dr. Jamari Byrne MD Work Phone: [facility] 10-16-2024 17:56-0400 SaO2% (BldA) [Mass fraction] 99 % Dr. Jamari Byrne MD Work Phone: [facility] 10-16-2024 17:56-0400 Systolic blood pressure 127 mm[Hg] Dr. Jamari Byrne MD Work Phone: [facility] 10-16-2024 17:53-0400 Body height 157.[address] Jamari Byrne MD Work Phone: [facility] 10-16-2024 17:53-0400 Body mass index (BMI) [Ratio] 36.8 kg/m2 Dr. Jamari Byrne MD Work Phone: [facility] 10-16-2024 17:53-0400 Body weight 91.[address] Jamari Byrne MD Work Phone: [facility] 10-04-2024 11:38-0400 Body mass index (BMI) [Ratio] 35.39 kg/m2 Piper Julian MD Work Phone: [facility] 10-04-2024 11:38-0400 Body weight 88.91 kg Piper Julian MD Work Phone: [facility] 10-04-2024 11:38-0400 Diastolic blood pressure 68 mm[Hg] Piper Julian MD Work Phone: [facility] 10-04-2024 11:38-0400 Systolic blood pressure 114 mm[Hg] Piper Julian MD Work Phone: [facility] 09-24-2024 15:07-0400 Body height 157.[address] Jamari Byrne MD Work Phone: [facility] 09-24-2024 15:07-0400 Body mass index (BMI) [Ratio] 35.5 kg/m2 Dr. Jamari Byrne MD Work Phone: [facility] 09-24-2024 15:07-0400 Body weight 88.[address] Jamari Byrne MD Work Phone: [facility] 09-24-2024 14:07-0400 Body temperature 98.1 [degF] Dr. Jamari Byrne MD Work Phone: [facility] 09-24-2024 14:07-0400 Respiratory rate 16 /min Dr. Jamari Byrne MD Work Phone: [facility] 09-24-2024 14:06-0400 Diastolic blood pressure 70 mm[Hg] Dr. Jamari Byrne MD Work Phone: [facility] 09-24-2024 14:06-0400 Heart rate 100 /min Dr. Jamari Byrne MD Work Phone: [facility] 09-24-2024 14:06-0400 Systolic blood pressure 122 mm[Hg] Dr. Jamari Byrne MD Work Phone: [facility] 09-24-2024 08:47-0400 Body mass index (BMI) [Ratio] 34.85 kg/m2 Leonie Waldron APRN.CNM Work Phone: [facility] 09-24-2024 08:47-0400 Body weight 87.54 kg Leonie Waldron ASSISTANT WAREHOUSE MANAGER.CNM Work Phone: [facility] 09-24-2024 08:47-0400 Diastolic blood pressure 64 mm[Hg] Leonie Waldron ASSISTANT WAREHOUSE MANAGER.CNM Work Phone: [facility] 09-24-2024 08:47-0400 Systolic blood pressure 110 mm[Hg] Leonie Waldron ASSISTANT WAREHOUSE MANAGER.CNM Work Phone: [facility] 09-20-2024 13:22-0400 Body mass index (BMI) [Ratio] 34.59 kg/m2 Kelsy Radha DO Work Phone: [facility] 09-20-2024 13:22-0400 Body weight 86.9 kg Kelsy Radha DO Work Phone: [facility] 09-20-2024 13:22-0400 Diastolic blood pressure 71 mm[Hg] Kelsy Radha DO Work Phone: [facility] 09-20-2024 13:22-0400 Heart rate 104 /min Kelsy Radha DO Work Phone: [facility] 09-20-2024 13:22-0400 Systolic blood pressure 116 mm[Hg] Kelsy Radha DO Work Phone: [facility] 09-07-2024 10:42-0400 Body mass index (BMI) [Ratio] 34.31 kg/m2 Ronaldo Rubio MD Work Phone: [facility] 09-07-2024 10:42-0400 Body weight 86.18 kg Ronaldo Rubio MD Work Phone: [facility] 09-07-2024 10:42-0400 Diastolic blood pressure 60 mm[Hg] Ronaldo Rubio MD Work Phone: [facility] 09-07-2024 10:42-0400 Systolic blood pressure 120 mm[Hg] Ronaldo Rubio MD Work Phone: [facility] 09-06-2024 10:02-0400 Body mass index (BMI) [Ratio] 34.61 kg/m2 Jamari Byrne MD Work Phone: [facility] 09-06-2024 10:02-0400 Body weight 85.82 kg Jamari Byrne MD Work Phone: [facility] 09-06-2024 10:02-0400 Diastolic blood pressure 68 mm[Hg] Jamari Byrne MD Work Phone: [facility] 09-06-2024 10:02-0400 Heart rate 98 /min Jamari Byrne MD Work Phone: [facility] 09-06-2024 10:02-0400 SaO2% (BldA) [Mass fraction] 98 % Jamari Byrne MD Work Phone: [facility] 09-06-2024 10:02-0400 Systolic blood pressure 120 mm[Hg] Jamari Byrne MD Work Phone: [facility] 09-02-2024 11:57-0400 Diastolic blood pressure 60 mm[Hg] [facility] 09-02-2024 11:57-0400 Systolic blood pressure 112 mm[Hg] [facility] 08-10-2024 08:05-0500 Body mass index (BMI) [Ratio] 33.26 kg/m2 [facility] 08-10-2024 08:05-0500 Body weight 83.55 kg [facility] 08-10-2024 08:05-0500 Diastolic blood pressure 70 mm[Hg] [facility] 08-10-2024 08:05-0500 Systolic blood pressure 112 mm[Hg] [facility] 07-26-2024 13:40-0500 Body mass index (BMI) [Ratio] 33.22 kg/m2 Kelsy Radha DO Work Phone: [facility] 07-26-2024 13:40-0500 Body weight 83.45 kg Kelsy Radha DO Work Phone: [facility] 07-26-2024 13:40-0500 Diastolic blood pressure 58 mm[Hg] Kelsy Radha DO Work Phone: [facility] 07-26-2024 13:40-0500 Heart rate 94 /min Kelsy Radha DO Work Phone: [facility] 07-26-2024 13:40-0500 Systolic blood pressure 127 mm[Hg] Kelsy Radha DO Work Phone: [facility] 07-23-2024 11:27-0500 Body mass index (BMI) [Ratio] 32.5 kg/m2 William Gramajo MD Work Phone: [facility] 07-23-2024 11:27-0500 Body weight 81.65 kg William Gramajo MD Work Phone: [facility] 07-23-2024 11:27-0500 Diastolic blood pressure 60 mm[Hg] William Gramajo MD Work Phone: [facility] 07-23-2024 11:27-0500 Systolic blood pressure 108 mm[Hg] William Gramajo MD Work Phone: [facility] 07-13-2024 09:51-0500 Body mass index (BMI) [Ratio] 32.21 kg/m2 William Gramajo MD Work Phone: [facility] 07-13-2024 09:51-0500 Body weight 80.92 kg William Gramajo MD Work Phone: [facility] 07-13-2024 09:51-0500 Diastolic blood pressure 60 mm[Hg] William Gramajo MD Work Phone: [facility] 07-13-2024 09:51-0500 Systolic blood pressure 110 mm[Hg] William Gramajo MD Work Phone: [facility] 07-01-2024 21:50-0500 Body temperature 98.71 [degF] Sixto Myers MD Work Phone: [facility] 07-01-2024 21:00-0500 Diastolic blood pressure 81 mm[Hg] Sixto Myers MD Work Phone: [facility] 07-01-2024 21:00-0500 Heart rate 110 /min Sixto Myers MD Work Phone: [facility] 07-01-2024 21:00-0500 Respiratory rate 18 /min Sixto Myers MD Work Phone: [facility] 07-01-2024 21:00-0500 SaO2% (BldA) [Mass fraction] 93 % Sixto Myers MD Work Phone: [facility] 07-01-2024 21:00-0500 Systolic blood pressure 123 mm[Hg] Sixto Myers MD Work Phone: [facility] 07-01-2024 19:43-0500 Body height 157.5 cm Sixto Myers MD Work Phone: [facility] 07-01-2024 19:43-0500 Body mass index (BMI) [Ratio] 32.56 kg/m2 Sixto Myers MD Work Phone: [facility] 07-01-2024 19:43-0500 Body weight 80.74 kg Sixto Myers MD Work Phone: [facility] 06-15-2024 14:25-0500 Body mass index (BMI) [Ratio] 32.17 kg/m2 Pooja Latham MD Work Phone: [facility] 06-15-2024 14:25-0500 Body weight 80.83 kg Pooja Latham MD Work Phone: [facility] 06-15-2024 14:25-0500 Diastolic blood pressure 58 mm[Hg] Pooja Latham MD Work Phone: [facility] 06-15-2024 14:25-0500 Systolic blood pressure 100 mm[Hg] Pooja Latham MD Work Phone: [facility] 06-07-2024 14:07-0500 Body mass index (BMI) [Ratio] 31.68 kg/m2 Kelsy Radha DO Work Phone: [facility] 06-07-2024 14:07-0500 Body weight 79.6 kg Kelsy Radha DO Work Phone: [facility] 06-07-2024 14:07-0500 Diastolic blood pressure 64 mm[Hg] Kelsy Radha DO Work Phone: [facility] 06-07-2024 14:07-0500 Heart rate 85 /min Kelsy Radha DO Work Phone: [facility] 06-07-2024 14:07-0500 Systolic blood pressure 104 mm[Hg] Kelsy Radha DO Work Phone: [facility] 05-26-2024 09:57-0500 Body mass index (BMI) [Ratio] 31.24 kg/m2 Krys Kulkarni MD Work Phone: [facility] 05-26-2024 09:57-0500 Body weight 78.47 kg Krys Kulkarni MD Work Phone: [facility] 05-26-2024 09:57-0500 Diastolic blood pressure 76 mm[Hg] Krys Kulkarni MD Work Phone: [facility] 05-26-2024 09:57-0500 Systolic blood pressure 116 mm[Hg] Krys Kulkarni MD Work Phone: [facility] 05-21-2024 19:12-0500 Body height 157.5 cm Reza Dyer DO Work Phone: [facility] 05-21-2024 19:12-0500 Body mass index (BMI) [Ratio] 31.28 kg/m2 Reza Dyer DO Work Phone: [facility] 05-21-2024 19:12-0500 Body temperature 97.7 [degF] Reza Mark DO Work Phone: [facility] 05-21-2024 19:12-0500 Body weight 77.56 kg Reza Dyer DO Work Phone: [facility] 05-21-2024 19:12-0500 Diastolic blood pressure 68 mm[Hg] Reza Mark DO Work Phone: [facility] 05-21-2024 19:12-0500 Heart rate 91 /min Reza Mark DO Work Phone: [facility] 05-21-2024 19:12-0500 Respiratory rate 18 /min Reza Mark DO Work Phone: [facility] 05-21-2024 19:12-0500 SaO2% (BldA) [Mass fraction] 100 % Reza Lemderrick DO Work Phone: [facility] 05-21-2024 19:12-0500 Systolic blood pressure 115 mm[Hg] Reza Mark DO Work Phone: [facility] 05-07-2024 09:29-0500 Body height 158.5 cm Zayda Parker ASSISTANT WAREHOUSE MANAGER.BUSINESS OBJECTS DEVELOPER Work Phone: [facility] 05-07-2024 09:29-0500 Body mass index (BMI) [Ratio] 31.02 kg/m2 Zayda Parker ASSISTANT WAREHOUSE MANAGER.BUSINESS OBJECTS DEVELOPER Work Phone: [facility] 05-07-2024 09:29-0500 Body weight 77.93 kg Zayda Parker ASSISTANT WAREHOUSE MANAGER.BUSINESS OBJECTS DEVELOPER Work Phone: [facility] 05-07-2024 09:29-0500 Diastolic blood pressure 60 mm[Hg] Zayda Parker ASSISTANT WAREHOUSE MANAGER.BUSINESS OBJECTS DEVELOPER Work Phone: [facility] 05-07-2024 09:29-0500 Systolic blood pressure 120 mm[Hg] Zayda Parker ASSISTANT WAREHOUSE MANAGER.BUSINESS OBJECTS DEVELOPER Work Phone: [facility] 05-04-2024 14:37-0500 Body mass index (BMI) [Ratio] 31.93 kg/m2 Jamari Byrne MD Work Phone: [facility] 05-04-2024 14:37-0500 Body weight 76.66 kg Jamari Byrne MD Work Phone: [facility] 05-04-2024 14:37-0500 Diastolic blood pressure 76 mm[Hg] Jamari Byrne MD Work Phone: [facility] 05-04-2024 14:37-0500 Heart rate 95 /min Jamari Byrne MD Work Phone: [facility] 05-04-2024 14:37-0500 SaO2% (BldA) [Mass fraction] 98 % Jamari Byrne MD Work Phone: [facility] 05-04-2024 14:37-0500 Systolic blood pressure 118 mm[Hg] Jamari Byrne MD Work Phone: [facility] 05-03-2024 14:13-0500 Body mass index (BMI) [Ratio] 30.91 kg/m2 Kelsy Guillermo DO Work Phone: [facility] 05-03-2024 14:13-0500 Body weight 77.9 kg Kelsy Radha DO Work Phone: [facility] 05-03-2024 14:13-0500 Diastolic blood pressure 67 mm[Hg] Kelsy Radha DO Work Phone: [facility] 05-03-2024 14:13-0500 Heart rate 94 /min Kelsy Radha DO Work Phone: [facility] 05-03-2024 14:13-0500 Systolic blood pressure 101 mm[Hg] Kelsy Radha DO Work Phone: [facility] 04-28-2024 08:34-0500 Body height 154.9 cm Joanie Hurtado ASSISTANT WAREHOUSE MANAGER-BUSINESS OBJECTS DEVELOPER Work Phone: [facility] 04-28-2024 08:34-0500 Body mass index (BMI) [Ratio] 32.06 kg/m2 Joanie Hurtado ASSISTANT WAREHOUSE MANAGER-BUSINESS OBJECTS DEVELOPER Work Phone: [facility] 04-28-2024 08:34-0500 Body weight 76.97 kg Joanie Hurtado ASSISTANT WAREHOUSE MANAGER-BUSINESS OBJECTS DEVELOPER Work Phone: [facility] 04-28-2024 08:34-0500 Diastolic blood pressure 82 mm[Hg] Joanie Hurtado ASSISTANT WAREHOUSE MANAGER-BUSINESS OBJECTS DEVELOPER Work Phone: [facility] 04-28-2024 08:34-0500 Heart rate 104 /min Joanie Hurtado ASSISTANT WAREHOUSE MANAGER-BUSINESS OBJECTS DEVELOPER Work Phone: [facility] 04-28-2024 08:34-0500 SaO2% (BldA) [Mass fraction] 97 % Joanie Hurtado ASSISTANT WAREHOUSE MANAGER-BUSINESS OBJECTS DEVELOPER Work Phone: [facility] 04-28-2024 08:34-0500 Systolic blood pressure 140 mm[Hg] Joanie Hurtado ASSISTANT WAREHOUSE MANAGER-BUSINESS OBJECTS DEVELOPER Work Phone: [facility] 04-18-2024 21:51-0500 Diastolic blood pressure 93 mm[Hg] Jamari Byrne MD Work Phone: [facility] 04-18-2024 21:51-0500 Heart rate 104 /min Jamari Byrne MD Work Phone: [facility] 04-18-2024 21:51-0500 Respiratory rate 18 /min Jamari Byrne MD Work Phone: [facility] 04-18-2024 21:51-0500 SaO2% (BldA) [Mass fraction] 98 % Jamari Byrne MD Work Phone: [facility] 04-18-2024 21:51-0500 Systolic blood pressure 133 mm[Hg] Jamari Byrne MD Work Phone: [facility] 04-18-2024 18:48-0500 Body height 154.9 cm Jamari Byrne MD Work Phone: [facility] 04-18-2024 18:48-0500 Body mass index (BMI) [Ratio] 32.88 kg/m2 Jamari Byrne MD Work Phone: [facility] 04-18-2024 18:48-0500 Body temperature 98.29 [degF] Jamari Byrne MD Work Phone: [facility] 04-18-2024 18:48-0500 Body weight 78.93 kg Jamari Byrne MD Work Phone: [facility] 01-23-2024 16:00-0400 Body mass index (BMI) [Ratio] 30.45 kg/m2 Jamari Byrne MD Work Phone: [facility] 01-23-2024 16:00-0400 Body weight 75.52 kg Jamari Byrne MD Work Phone: [facility] 01-23-2024 16:00-0400 Diastolic blood pressure 70 mm[Hg] Jamari Byrne MD Work Phone: [facility] 01-23-2024 16:00-0400 Heart rate 98 /min Jamari Byrne MD Work Phone: [facility] 01-23-2024 16:00-0400 SaO2% (BldA) [Mass fraction] 98 % Jamari Byrne MD Work Phone: [facility] 01-23-2024 16:00-0400 Systolic blood pressure 110 mm[Hg] Jamari Byrne MD Work Phone: [facility] 12-25-2023 16:05-0400 Body height 157.5 cm Jamari Byrne MD Work Phone: [facility] 12-25-2023 16:05-0400 Body mass index (BMI) [Ratio] 31.18 kg/m2 Jamari Byrne MD Work Phone: [facility] 12-25-2023 16:05-0400 Body weight 77.34 kg Jamari Byrne MD Work Phone: [facility] 12-25-2023 16:05-0400 Diastolic blood pressure 70 mm[Hg] Jamari Byrne MD Work Phone: [facility] 12-25-2023 16:05-0400 Heart rate 87 /min Jamari Byrne MD Work Phone: [facility] 12-25-2023 16:05-0400 SaO2% (BldA) [Mass fraction] 97 % Jamari Byrne MD Work Phone: [facility] Comment on above: RA 12-25-2023 16:05-0400 Systolic blood pressure 112 mm[Hg] Jamari Byrne MD Work Phone: [facility] 09-15-2023 10:19-0400 Body mass index (BMI) [Ratio] 34.46 kg/m2 Jamari yBrne MD Work Phone: [facility] 09-15-2023 10:19-0400 Body temperature 98.1 [degF] Jamari Byrne MD Work Phone: [facility] 09-15-2023 10:19-0400 Body weight 86.68 kg Jamari Byrne MD Work Phone: [facility] 09-15-2023 10:19-0400 Diastolic blood pressure 80 mm[Hg] Jamari Byrne MD Work Phone: [facility] 09-15-2023 10:19-0400 Heart rate 110 /min Jamari Byrne MD Work Phone: [facility] 09-15-2023 10:19-0400 SaO2% (BldA) [Mass fraction] 100 % Jamari Byrne MD Work Phone: [facility] 09-15-2023 10:19-0400 Systolic blood pressure 124 mm[Hg] Jamari Byrne MD Work Phone: [facility] 08-19-2023 10:08-0400 Body temperature 98.1 [degF] Krislyn Aberegg PA Work Phone: [facility] 08-19-2023 10:08-0400 Body weight 89 kg Krislyn Aberegg PA Work Phone: [facility] 08-19-2023 10:08-0400 Diastolic blood pressure 80 mm[Hg] Krislyn Aberegg PA Work Phone: [facility] 08-19-2023 10:08-0400 Heart rate 100 /min Krislyn Aberegg PA Work Phone: [facility] 08-19-2023 10:08-0400 Respiratory rate 20 /min Krislyn Aberegg PA Work Phone: [facility] 08-19-2023 10:08-0400 SaO2% (BldA) [Mass fraction] 97 % Krislyn Aberegg PA Work Phone: [facility] 08-19-2023 10:08-0400 Systolic blood pressure 110 mm[Hg] Krislyn Aberegg PA Work Phone: [facility] 07-10-2023 10:27-0500 Body mass index (BMI) [Ratio] 34.07 kg/m2 Jamari Byrne MD Work Phone: [facility] 07-10-2023 10:27-0500 Body temperature 97.81 [degF] Jamari Byrne MD Work Phone: [facility] 07-10-2023 10:27-0500 Body weight 85.68 kg Jamari Byrne MD Work Phone: [facility] 07-10-2023 10:27-0500 Diastolic blood pressure 78 mm[Hg] Jamari Byrne MD Work Phone: [facility] 07-10-2023 10:27-0500 Heart rate 95 /min Jamari Byrne MD Work Phone: [facility] 07-10-2023 10:27-0500 SaO2% (BldA) [Mass fraction] 100 % Jamari Byrne MD Work Phone: [facility] 07-10-2023 10:27-0500 Systolic blood pressure 130 mm[Hg] Jamari Byrne MD Work Phone: [facility] 05-09-2023 11:11-0500 Body mass index (BMI) [Ratio] 35.07 kg/m2 Jamari Byrne MD Work Phone: [facility] 05-09-2023 11:11-0500 Body temperature 97.7 [degF] Jamari Byrne MD Work Phone: [facility] 05-09-2023 11:11-0500 Body weight 88.22 kg Jamari Byrne MD Work Phone: [facility] 05-09-2023 11:11-0500 Diastolic blood pressure 82 mm[Hg] Jamari Byrne MD Work Phone: [facility] 05-09-2023 11:11-0500 Heart rate 93 /min Jamari Byrne MD Work Phone: [facility] 05-09-2023 11:11-0500 SaO2% (BldA) [Mass fraction] 98 % Jamari Byrne MD Work Phone: [facility] 05-09-2023 11:11-0500 Systolic blood pressure 118 mm[Hg] Jamari Byrne MD Work Phone: [facility] 03-17-2023 11:08-0400 Body height 158.6 cm Jamari Byrne MD Work Phone: [facility] 03-17-2023 11:08-0400 Body mass index (BMI) [Ratio] 35.85 kg/m2 Jamari Byrne MD Work Phone: [facility] 03-17-2023 11:08-0400 Body weight 90.17 kg Jamari Byrne MD Work Phone: [facility] 03-17-2023 11:08-0400 Diastolic blood pressure 80 mm[Hg] Jamari Byrne MD Work Phone: [facility] 03-17-2023 11:08-0400 Heart rate 111 /min Jamari Byrne MD Work Phone: [facility] 03-17-2023 11:08-0400 Systolic blood pressure 110 mm[Hg] Jamari Byrne MD Work Phone: [facility] 12-13-2022 13:31-0400 Body height 158.6 cm Jamari Byrne MD Work Phone: [facility] 12-13-2022 13:31-0400 Body mass index (BMI) [Ratio] 36.77 kg/m2 Jamari Byrne MD Work Phone: [facility] 12-13-2022 13:31-0400 Body weight 92.49 kg Jamari Byrne MD Work Phone: [facility] 12-13-2022 13:31-0400 Diastolic blood pressure 80 mm[Hg] Jamari Byrne MD Work Phone: [facility] 12-13-2022 13:31-0400 Heart rate 104 /min Jamari Byrne MD Work Phone: [facility] 12-13-2022 13:31-0400 SaO2% (BldA) [Mass fraction] 97 % Jamari Byrne MD Work Phone: [facility] 12-13-2022 13:31-0400 Systolic blood pressure 118 mm[Hg] Jamari Byrne MD Work Phone: [facility] 08-17-2022 18:56-0500 Body height 160 cm Lazara Annmarie DO Work Phone: [facility] 08-17-2022 18:56-0500 Body mass index (BMI) [Ratio] 34.19 kg/m2 Lazara Reederosick DO Work Phone: [facility] 08-17-2022 18:56-0500 Body temperature 97.7 [degF] Lazara Lillitorreyck DO Work Phone: [facility] 08-17-2022 18:56-0500 Body weight 87.54 kg Lazara Deepack DO Work Phone: [facility] 08-17-2022 18:56-0500 Diastolic blood pressure 86 mm[Hg] Lazara Reederosick DO Work Phone: [facility] 08-17-2022 18:56-0500 Heart rate 96 /min Lazara Reederosick DO Work Phone: [facility] 08-17-2022 18:56-0500 Respiratory rate 16 /min Lazara Lillitorreyck DO Work Phone: [facility] 08-17-2022 18:56-0500 SaO2% (BldA) [Mass fraction] 97 % Lazara Lilliosick DO Work Phone: [facility] 08-17-2022 18:56-0500 Systolic blood pressure 126 mm[Hg] Lazara Reederosick DO Work Phone: [facility] 05-24-2022 10:15-0500 Body height 157.48 cm Jamari Byrne Work Phone: [facility] Work Phone: 05-24-2022 10:15-0500 Body mass index (BMI) [Ratio] 32.92 kg/m2 Jamari L Chavez Work Phone: [facility] Work Phone: 05-24-2022 10:15-0500 Body surface area Derived from formula 1.83 m2 Jamari L Chavez Work Phone: [facility] Work Phone: 05-24-2022 10:15-0500 Body weight 81.64 kg Jamari L Chavez Work Phone: [facility] Work Phone: 05-24-2022 10:15-0500 Diastolic blood pressure 82 mm[Hg] Jamari L Chavez Work Phone: [facility] Work Phone: 05-24-2022 10:15-0500 Heart rate 94 /min Jamari L Chavez Work Phone: [facility] Work Phone: 05-24-2022 10:15-0500 Systolic blood pressure 100 mm[Hg] Jamari L Chavez Work Phone: [facility] Work Phone: 01-04-2022 13:47-0400 Body height 157.48 cm Jamari L Chavez Work Phone: [facility] Work Phone: 01-04-2022 13:47-0400 Body mass index (BMI) [Ratio] 30.91 kg/m2 Jamari L Chavez Work Phone: [facility] Work Phone: 01-04-2022 13:47-0400 Body surface area Derived from formula 1.78 m2 Jamari L Chavez Work Phone: [facility] Work Phone: 01-04-2022 13:47-0400 Body weight 76.65 kg Jamari L Chavez Work Phone: [facility] Work Phone: 01-04-2022 13:47-0400 Diastolic blood pressure 78 mm[Hg] Jamari L Chavez Work Phone: [facility] Work Phone: 01-04-2022 13:47-0400 Heart rate 80 /min Jamari L Chavez Work Phone: [facility] Work Phone: 01-04-2022 13:47-0400 Systolic blood pressure 108 mm[Hg] Jamari L Chavez Work Phone: [facility] Work Phone: 12-25-2021 08:36-0400 Body height 157.48 cm Jamari L Chavez Work Phone: [place] [address] [address] Work Phone: 12-25-2021 08:36-0400 Body mass index (BMI) [Ratio] 30.36 kg/m2 Jamari L Chavez Work Phone: [place] [address] [address] Work Phone: 12-25-2021 08:36-0400 Body surface area Derived from formula 1.77 m2 Jamari L Chavez Work Phone: [place] [address] [address] Work Phone: 12-25-2021 08:36-0400 Body weight 75.3 kg Jamari L Chavez Work Phone: [place] [address] [address] Work Phone: 12-25-2021 08:36-0400 Diastolic blood pressure 76 mm[Hg] Jamari L Chavez Work Phone: [place] [address] [address] Work Phone: 12-25-2021 08:36-0400 Systolic blood pressure 116 mm[Hg] Jamari L Chavez Work Phone: [place] [address] [address] Work Phone: 12-17-2021 09:02-0400 Body height 157.48 cm Jamari L Chavez Work Phone: [place] [address] [address] Work Phone: 12-17-2021 09:02-0400 Body mass index (BMI) [Ratio] 30.44 kg/m2 Jamari L Chavez Work Phone: [place] [address] [address] Work Phone: 12-17-2021 09:02-0400 Body surface area Derived from formula 1.77 m2 Jamari L Chavez Work Phone: [place] [address] [address] Work Phone: 12-17-2021 09:02-0400 Body weight 75.5 kg Jamari L Chavez Work Phone: [place] [address] [address] Work Phone: 12-17-2021 09:02-0400 Diastolic blood pressure 76 mm[Hg] Jamari L Chavez Work Phone: [place] [address] [address] Work Phone: 12-17-2021 09:02-0400 Systolic blood pressure 112 mm[Hg] Jamari L Chavez Work Phone: [place] [address] [address] Work Phone: 11-26-2021 09:02-0400 Body height 157.48 cm Jamari L Chavez Work Phone: [place] [address] [address] Work Phone: 11-26-2021 09:02-0400 Body mass index (BMI) [Ratio] 31.09 kg/m2 Jamari L Chavez Work Phone: [place] [address] [address] Work Phone: 11-26-2021 09:02-0400 Body surface area Derived from formula 1.78 m2 Jamari L Chavez Work Phone: [place] [address] [address] Work Phone: 11-26-2021 09:02-0400 Body weight 77.11 kg Jamari L Chavez Work Phone: [address] Work Phone: 11-26-2021 09:02-0400 Diastolic blood pressure 82 mm[Hg] Jamari L Chavez Work Phone: [address] Work Phone: 11-26-2021 09:02-0400 Systolic blood pressure 118 mm[Hg] Jamari L Chavez Work Phone: [address] Work Phone: 11-12-2021 10:17-0400 Body height 159.5 cm Jamari L Chavez Work Phone: [facility] Work Phone: 11-12-2021 10:17-0400 Body mass index (BMI) [Ratio] 30.95 kg/m2 Jamari L Chavez Work Phone: [facility] Work Phone: 11-12-2021 10:17-0400 Body surface area Derived from formula 1.82 m2 Jamari L Chavez Work Phone: [facility] Work Phone: 11-12-2021 10:17-0400 Body weight 78.74 kg Jamari L Chavez Work Phone: [facility] Work Phone: 11-12-2021 10:17-0400 Diastolic blood pressure 70 mm[Hg] Jamari L Chavez Work Phone: [facility] Work Phone: 11-12-2021 10:17-0400 Heart rate 95 /min Jamari Gonzalez Chavez Work Phone: [facility] Work Phone: 11-12-2021 10:17-0400 Systolic blood pressure 104 mm[Hg] Jamari Gonzalez Chavez Work Phone: [facility] Work Phone: 01-04-2021 10:07-0400 Body height 159.99 cm Rich L Oberhauser Work Phone: [facility] Work Phone: 01-04-2021 10:07-0400 Body mass index (BMI) [Ratio] 32.96 kg/m2 Rich L Oberhauser Work Phone: [facility] Work Phone: 01-04-2021 10:07-0400 Body surface area Derived from formula 1.87 m2 Rich L Oberhauser Work Phone: [facility] Work Phone: 01-04-2021 10:07-0400 Body temperature 97.9 [degF] Rich L Oberhauser Work Phone: [facility] Work Phone: 01-04-2021 10:07-0400 Body weight 84.37 kg Rich L Oberhauser Work Phone: [facility] Work Phone: 01-04-2021 10:07-0400 Diastolic blood pressure 79 mm[Hg] Rich L Oberhauser Work Phone: [facility] Work Phone: 01-04-2021 10:07-0400 Heart rate 100 /min Rich L Oberhauser Work Phone: [facility] Work Phone: 01-04-2021 10:07-0400 Systolic blood pressure 125 mm[Hg] Rich L Oberhauser Work Phone: [facility] Work Phone: 11-02-2020 15:58-0400 Body height 159.99 cm Rich L Oberhauser Work Phone: [facility] Work Phone: 11-02-2020 15:58-0400 Body mass index (BMI) [Ratio] 32.96 kg/m2 Rich L Oberhauser Work Phone: [facility] Work Phone: 11-02-2020 15:58-0400 Body surface area Derived from formula 1.87 m2 Rich L Oberhauser Work Phone: [facility] Work Phone: 11-02-2020 15:58-0400 Body temperature 97.8 [degF] Rich L Oberhauser Work Phone: [facility] Work Phone: 11-02-2020 15:58-0400 Body weight 84.37 kg Rich L Oberhauser Work Phone: [facility] Work Phone: 11-02-2020 15:58-0400 Diastolic blood pressure 77 mm[Hg] Rich L Oberhauser Work Phone: [facility] Work Phone: 11-02-2020 15:58-0400 Heart rate 106 /min Rich L Oberhauser Work Phone: [facility] Work Phone: 11-02-2020 15:58-0400 Systolic blood pressure 120 mm[Hg] Rich L Oberhauser Work Phone: [facility] Work Phone: 10-24-2020 04:00-0400 Diastolic blood pressure 76 mm[Hg] Rich Ng Other Phone: [facility] 10-24-2020 04:00-0400 Heart rate 96 /min Rich Ng Other Phone: [facility] 10-24-2020 04:00-0400 Respiratory rate 18 /min Rich Ng Other Phone: [facility] 10-24-2020 04:00-0400 SaO2% (BldA) [Mass fraction] 95 % Rich Ng Other Phone: [facility] 10-24-2020 04:00-0400 Systolic blood pressure 115 mm[Hg] Rich Ng Other Phone: [facility] 12-08-2019 08:09-0400 BMI (Body Mass Index) 29.23 kg/m2 [facility] 12-08-2019 08:09-0400 Body weight 74.84 kg [facility] 12-08-2019 08:09-0400 BP Diastolic 82 mm[Hg] [facility] 12-08-2019 08:09-0400 BP Systolic 128 mm[Hg] [facility] 12-08-2019 08:09-0400 Height 160 cm [facility] 12-08-2019 08:09-0400 Pulse (Heart Rate) 103 /min [facility] 12-08-2019 08:09-0400 Pulse Oximetry 97 % [facility] 12-08-2019 08:09-0400 Respiratory Rate 16 /min [facility] 09-29-2019 17:47-0400 BMI (Body Mass Index) 28.18 kg/m2 Rich Ng [facility] Work Phone: 09-29-2019 17:47-0400 Body Temperature 98.5 [degF] Rich Ng [facility] Work Phone: 09-29-2019 17:47-0400 Body weight 72.12 kg Rich Ng [facility] Work Phone: 09-29-2019 17:47-0400 BP Diastolic 93 mm[Hg] Rich Obdavid [facility] Work Phone: 09-29-2019 17:47-0400 BP Systolic 136 mm[Hg] Rich Obdavid [facility] Work Phone: 09-29-2019 17:47-0400 BSA (Body Surface Area) 1.75 m2 Rich Ng [facility] Work Phone: 09-29-2019 17:47-0400 Height 159.99 cm Rich Ng [facility] Work Phone: 09-29-2019 17:47-0400 Pulse (Heart Rate) 101 /min Rich Ng [facility] Work Phone: 09-27-2019 16:07-0400 BMI (Body Mass Index) 28.17 kg/m2 Rich Ng [facility] Work Phone: 09-27-2019 16:07-0400 Body weight 72.12 kg Rich Ng [facility] Work Phone: 09-27-2019 16:07-0400 BP Diastolic 78 mm[Hg] Rich Oberbilly [facility] Work Phone: 09-27-2019 16:07-0400 BP Systolic 128 mm[Hg] Rich Oberbilly [facility] Work Phone: 09-27-2019 16:07-0400 BSA (Body Surface Area) 1.75 m2 [facility] Work Phone: 09-27-2019 16:07-0400 Height 160 cm Rich Ng [facility] Work Phone: 05-19-2019 11:48-0500 BMI (Body Mass Index) 29.8 kg/m2 Juno Blackburn [facility] [address] Work Phone: 05-19-2019 11:48-0500 Body weight 76.3 kg Juno Blackburn [facility] [address] Work Phone: 05-19-2019 11:48-0500 BP Diastolic 70 mm[Hg] Juno Blackburn [facility] [address] Work Phone: 05-19-2019 11:48-0500 BP Systolic 110 mm[Hg] Juno Blackburn [facility] [address] Work Phone: 05-19-2019 11:48-0500 BSA (Body Surface Area) 1.8 m2 Juno Blackburn [facility] [address] Work Phone: 05-19-2019 11:48-0500 Height 160.02 cm Juno Blackburn [facility] [address] Work Phone: 05-13-2019 16:36-0500 BMI (Body Mass Index) 24.88 kg/m2 Juno Blackburn [facility] [address] Work Phone: 05-13-2019 16:36-0500 Body weight 63.7 kg Juno Blackburn [facility] [address] Work Phone: 05-13-2019 16:36-0500 BP Diastolic 68 mm[Hg] Juno Blackburn [facility] [address] Work Phone: 05-13-2019 16:36-0500 BP Systolic 100 mm[Hg] Juno Blackburn [facility] [address] Work Phone: 05-13-2019 16:36-0500 BSA (Body Surface Area) 1.66 m2 Juno Blackburn [facility] [address] Work Phone: 05-13-2019 16:36-0500 Height 160.02 cm [facility] [employer] Work Phone: 03-21-2019 22:15-0400 BMI (Body Mass Index) 27.63 kg/m2 [facility] 03-21-2019 22:15-0400 Body weight 70.76 kg [facility] 03-21-2019 22:15-0400 Height 160 cm [facility] 03-21-2019 22:13-0400 Body Temperature 98.91 [degF] [facility] 03-21-2019 22:13-0400 BP Diastolic 77 mm[Hg] [facility] 03-21-2019 22:13-0400 BP Systolic 114 mm[Hg] [facility] 03-21-2019 22:13-0400 Pulse (Heart Rate) 84 /min [facility] 03-21-2019 22:13-0400 Pulse Oximetry 98 % [facility] 03-21-2019 22:13-0400 Respiratory Rate 18 /min [facility] 03-11-2019 10:55-0400 Body Temperature 98.49 [degF] [facility] 03-11-2019 10:55-0400 BP Diastolic 65 mm[Hg] [facility] 03-11-2019 10:55-0400 BP Systolic 119 mm[Hg] [facility] 03-11-2019 10:55-0400 Pulse (Heart Rate) 78 /min [facility] 03-11-2019 10:55-0400 Pulse Oximetry 97 % [facility] 03-11-2019 10:55-0400 Respiratory Rate 16 /min [facility] 03-11-2019 10:53-0400 BMI (Body Mass Index) 27.63 kg/m2 [facility] 03-11-2019 10:53-0400 Body weight 70.76 kg [facility] 03-11-2019 10:53-0400 Height 160 cm [facility] 02-10-2019 19:22-0400 BP Diastolic 86 mm[Hg] [facility]10[facility] 19:22-0400 BP Systolic 123 mm[Hg] [facility]-10-2019 19:22-0400 Pulse (Heart Rate) 86 /min [facility] 02-10-2019 19:22-0400 Pulse Oximetry 97 % [facility] 02-10-2019 19:22-0400 Respiratory Rate 16 /min [facility] 02-10-2019 17:11-0400 Body Temperature 97.3 [degF] [facility] 10-07-2018 01:36-0400 Body Temperature 98.01 [degF] [facility] 10-07-2018 01:36-0400 BP Diastolic 73 mm[Hg] [facility] 10-07-2018 01:36-0400 BP Systolic 113 mm[Hg] [facility] 10-07-2018 01:36-0400 Pulse (Heart Rate) 85 /min [facility] 10-07-2018 01:36-0400 Pulse Oximetry 97 % [facility] 10-07-2018 01:36-0400 Respiratory Rate 18 /min [facility] 10-06-2018 23:01-0400 BMI (Body Mass Index) 31.53 kg/m2 [facility] 10-06-2018 23:01-0400 Body weight 80.74 kg [facility] 10-06-2018 23:01-0400 Height 160 cm [facility] 10-05-2018 00:24-0400 Body Temperature 98.29 [degF] [facility] 10-05-2018 00:24-0400 BP Diastolic 90 mm[Hg] [facility] 10-05-2018 00:24-0400 BP Systolic 141 mm[Hg] [facility] 10-05-2018 00:24-0400 Pulse (Heart Rate) 82 /min [facility] 10-05-2018 00:24-0400 Pulse Oximetry 97 % [facility] 10-05-2018 00:24-0400 Respiratory Rate 20 /min [facility] 10-04-2018 21:38-0400 Respiratory rate 16 /min [facility] Katie [facility] 10-04-2018 19:31-0400 BMI (Body Mass Index) 31.53 kg/m2 [facility] 10-04-2018 19:31-0400 Body weight 80.[address] [facility] 10-04-2018 19:31-0400 Height 160 cm [facility] 09-12-2018 23:29-0400 Pulse (Heart Rate) 113 /min [facility] 09-12-2018 23:29-0400 Pulse Oximetry 97 % [facility] 09-12-2018 23:16-0400 Body Temperature 98.49 [degF] [facility] 09-12-2018 22:34-0400 BP Diastolic 66 mm[Hg] [facility] 09-12-2018 22:34-0400 BP Systolic 117 mm[Hg] [facility] 09-12-2018 22:34-0400 Respiratory Rate 16 /min [facility] 09-12-2018 21:16-0400 BMI (Body Mass Index) 31 kg/m2 [facility] 09-12-2018 21:16-0400 Height 160 cm [facility] 09-12-2018 21:16-0400 Weight 79.38 kg [facility] [employer] Comment on above: [facility] 02-01-2018 21:30-0400 Body temperature 37.0 Celsius [facility] Comment on above: Performed By: #### VBG #### Unless otherwise noted, all testing performed by [facility] [employer] [place] [address] [place], [place] [address] CLIA: [id number] Hanger: Cristofer Perry M.D. Encounters Encounter Date Encounter Type Care Provider Facility Start: 03-09-2025 End: 03-09-20[facility] Start: 03-09-2025 End: 03-09-2025 Office outpatient visit 25 minutes Jamari Byrne MD Work Phone: [facility] Comment on above: Diabetic gastropares is associated with type 2 diabetes mellitus (Multi) (Primary Dx); Anxiety and depression; Gastroesophageal reflux disease, 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 esophagitis present Start: 02-22-2025 End: 02-22-2025 ambulatory Kelsy Guillermo DO Work Phone: Endocrinology Comment on above: Diabetic Start: 02-21-2025 End: 02-21-2025 Office outpatient visit 15 minutes Leonie Galarza ASSISTANT WAREHOUSE MANAGER-BUSINESS OBJECTS DEVELOPER Work Phone: [facility] Comment on above: Cough, unspecified t ype (Primary Dx); Acute upper respiratory infection Start: 02-21-2025 ambulatory [facility] Start: 02-19-2025 End: 02-19-2025 Patient encounter procedure Ángela Norris ASSISTANT WAREHOUSE MANAGER.BUSINESS OBJECTS DEVELOPER Work Phone: [facility] Comment on above: Bacterial sinusitis (Primary Dx); Nausea; Postnasal drip Start: 02-19-2025 End: 02-20-2025 ambulatory JAMARI CHAVEZ Facility:[facility] Start: 02-01-2025 End: 02-01-2025 Telephone encounter Kelsy Guillermo DO Work Phone: Endocrinology Comment on above: insulin concern Start: 01-31-2025 End: 01-31-2025 Office outpatient visit 25 minutes Jamari Byrne MD Work Phone: [facility] Comment on above: Exercise-induced ast hma (Primary Dx); Hyperglycemia due to diabetes mellitus (Multi); Anxiety and depression Start: 01-31-2025 End: 01-31-2025 ambulatory [facility] Start: 01-29-2025 End: 01-29-2025 Emergency department patient visit [facility] Start: 01-28-2025 End: 01-28-2025 Patient encounter procedure Issca Romero ASSISTANT WAREHOUSE MANAGER.BUSINESS OBJECTS DEVELOPER Work Phone: [facility] Comment on above: Gastritis with hemor rhage, unspecified chronicity, unspecified gastritis type (Primary Dx); Nausea and vomiting, unspecified vomiting type; Gastro-esophageal reflux disease without esophagitis; SHIRA (generalized anxiety disorder) Start: 01-28-2025 End: 01-28-2025 ambulatory JAMARI BYRNE Facility:[facility] Start: 01-28-2025 Encounter for other preprocedural examination Whit Patel [facility] Start: 2025 End: 01-28-2025 Telephone encounter Whit Schulte MD Work Phone: OB/Gynecology Comment on above: [employer] Start: 01-26-2025 End: 01-26-2025 Emergency department patient visit Dr. Jamari Byrne MD Work Phone: -Emergency Department Work Phone: Start: 01-24-2025 End: 01-24-2025 Emergency department patient visit Ty Shannon DO Work Phone: [facility] Emergency Medicine Comment on above: Acute chest pain (Pr imary Dx) Start: 01-23-2025 End: 01-23-2025 Emergency department patient visit Dr. Jamari Byrne MD Work Phone: -Emergency Department Work Phone: Start: 01-21-2025 ambulatory Whit Patel Facility:[facility] Start: 01-20-2025 End: 01-21-2025 Emergency department patient visit Dr. 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 Start: 01-19-2025 End: 01-19-2025 Patient encounter procedure Whit Schulte MD Work Phone: OB/Gynecology Comment on above: care and examination (HCC) (Primary Dx); Request for sterilization; Pre-op exam Start: 01-19-2025 End: 01-19-2025 Preprocedural examination done Whit Schulte MD Work Phone: [facility] Start: 01-19-2025 End: 01-19-2025 ambulatory WHIT SCHULTE Facility:[facility] Start: 01-19-2025 Encounter for other preprocedural examination WHIT SCHULTE [facility] Start: 12-31-2024 End: 12-31-2024 ambulatory Chava Fv Ob L&D Work Phone: [facility] 3 L&D Comment on above: M-Power Feedback Start: 12-31-2024 End: 12-31-2024 E-mail encounter from caregiver Chava Fv Ob L&D Work Phone: [facility] 3 L&D Start: 12-21-2024 End: 12-21-2024 Patient encounter procedure William Gramajo MD Work Phone: OB/Gynecology Comment on above: care and examination immediately after delivery (HCC) (Primary Dx) Start: 12-21-2024 End: 12-21-2024 ambulatory WILLIAM GRAMAJO Facility:[facility] Start: 12-16-2024 End: 12-16-[address] [...] of inpatient Dr. William Gramajo MD [facility] Work Phone: Start: 12-06-2024 End: 02-05-2025 Follow-up encounter Lucy Mariscal APRN.CNP Work Phone: OB/Gynecology Start: 12-06-2024 End: 12-06-2024 Telephone encounter Kelsy Guillermo DO Work Phone: Endocrinology Comment on above: Blood Sugar Reading Start: 12-06-2024 End: 12-06-2024 Patient encounter procedure Whi Tech 1 Lens Grinding Machine Operator [employer] Maternal Medicine Comment [...] 12-06-2024 End: 12-06-2024 ambulatory PIPER JULIAN Facility:[facility] Start: 12-06-2024 ambulatory Jamari Byrne Facility: [facility] Start: 12-02-2024 End: 12-02-2024 E-mail encounter [...] 11-30-2024 Patient encounter procedure Whi Tech 1 Lens Grinding Machine Operator [employer] Maternal Medicine Comment on above: Pre-existing type 2 diabetes mellitus in in third trimester (HCC) (Primary Dx); Pre-existing type 2 diabetes mellitus in in first trimester (HCC) Start: 11-30-2024 End: 11-30-2024 ambulatory Raidarrr CHAVEZ Facility:[facility] Start: 11-25-2024 End: 11-25-2024 Telephone encounter [...] (HCC) Start: 11-25-2024 End: 11-25-2024 ambulatory JAMARI [facility] Facility:[facility] Start: 11-22-2024 End: 01-22-2025 Follow-up encounter Lucy Mariscal APRN.CNP Work Phone: OB/Gynecology Start: 11-22-2024 End: 11-22-2024 Patient encounter procedure Acrintai Tech 1 Lens Grinding Machine Operator [employer] Maternal Medicine Comment on above: Obesity affecting pr egnancy in first trimester, unspecified obesity type (HCC) (Primary Dx); Pre-existing type 2 diabetes mellitus in in first trimester (HCC) Start: 11-22-2024 End: 11-22-2024 ambulatory [facility]ARI [facility] Facility:[facility] Start: 11-18-2024 End: 11-18-2024 Patient encounter procedure Keshav Loving MD Work Phone: OB/Gynecology Comment on above: Pre-existing type 2 diabetes mellitus in in third trimester (HCC) (Primary Dx); 35 weeks gestation of (HCC); Vaginal itching Start: 11-18-2024 End: 11-18-2024 ambulatory JAMARI BYRNE Facility:[facility] Start: 11-16-2024 End: 11-16-2024 Telephone encounter Kelsy Guillermo DO Work Phone: Endocrinology Comment on above: Blood Sugar Reading Start: 11-15-2024 End: 11-15-[address] Jamari Byrne MD Work Phone: [facility] Work Phone: Start: 11-15-2024 End: 11-15-[address] Whit Patel MD -[facility] Work Phone: Start: 11-15-2024 End: 11-15-2024 Patient encounter procedure Keshav Loving MD Work Phone: OB/Gynecology Comment on above: Pre-existing type 2 diabetes mellitus in in third trimester (HCC) (Primary Dx); 35 weeks gestation of (HCC); Supervision of high risk in third trimester (HCC) Pre-existing type 2 diabetes mellitus in in first trimester (HCC) (Primary Dx); 35 weeks gestation of ([facility]) Start: 11-15-2024 End: 11-15-2024 ambulatory JAMARI BYRNE Facility: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 Start: 11-05-2024 End: 11-05-2024 [facility] Facility:[facility] Start: 11-05-2024 End: 11-05-2024 Initial preventive medicine new pt age 12-17 yr Krys Kulkarni MD Work Phone: OB/Gynecology Comment on above: 33 weeks gestation o f (HCC) (Primary Dx); complication before ([facility]); Pre-existing type 2 diabetes mellitus in in third trimester ([facility]); Supervision of high risk in third trimester ([facility]); pruritus, third trimester ([facility]) Start: 11-05-2024 End: 11-05-2024 ambulatory [facility] Facility: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 [employer] Maternal Medicine Comment on above: Pre-existing type 2 diabetes mellitus in in first trimester (HCC) (Primary Dx); Obesity affecting in first trimester, unspecified obesity type ([facility]); 33 weeks gestation of ([facility]) Pre-existing type 2 diabetes mellitus in in third trimester ([facility]) (Primary Dx); History of pre-eclampsia; H/O macrosomia in in prior , currently ([facility]); 33 weeks gestation of ([facility]); Request for sterilization; Herpes simplex type 2 (HSV-2) infection affecting , antepartum, unspecified trimester ([facility]) Start: 11-02-2024 End: 11-02-2024 ambulatory JAMARI BYRNE Facility:[facility] Start: 10-29-2024 End: 11-22-2024 Follow-up encounter Piper Julian MD Work Phone: OB/Gynecology Start: 10-29-2024 End: 11-03-2024 Telephone encounter Piper Julian MD Work Phone: OB/Gynecology Comment on above: Breast Pump Start: 10-28-2024 End: 10-28-2024 ambulatory PIPER JULIAN Facility:[facility] Start: 10-25-2024 End: 10-25-2024 ambulatory PIPER JULIAN Facility:[facility] Start: 10-25-2024 End: 10-25-2024 Patient encounter procedure Piper Julian MD Work Phone: OB/Gynecology Comment on above: Supervision of high risk in third trimester (HCC) (Primary Dx); Pre-existing type 2 diabetes mellitus in in third trimester (HCC); Exposure to parvovirus; History of pre-eclampsia Start: 10-25-2024 End: 10-25-2024 ambulatory JAMARI BYRNE Facility:[facility] Start: 10-20-2024 End: 10-20-2024 ambulatory Piper Julian MD Work Phone: OB/Gynecology Comment on above: results Start: 10-20-2024 End: 10-20-2024 E-mail encounter from caregiver Piper Julian MD Work Phone: OB/Gynecology Start: 10-19-2024 End: 10-19-2024 Telephone encounter Kelsy Guillermo DO Work Phone: Endocrinology Comment on above: Blood Sugar Reading Start: 10-18-2024 End: 10-18-2024 E-mail encounter from caregiver [employer] Ob L[facility]D Work Phone: [facility] Start: 10-18-2024 End: 10-18-2024 Patient encounter procedure Whit Schulte MD Work Phone: OB/Gynecology Comment on above: Supervision of high risk in third trimester (HCC) (Primary Dx); Pre-existing type 2 diabetes mellitus in in third trimester (HCC); Herpes simplex type 2 (HSV-2) infection affecting , antepartum, unspecified trimester (HCC); H/O macrosomia in infant in prior , currently (HCC); History of pre-eclampsia; 31 weeks gestation of ([facility]) Start: 10-18-2024 End: 10-18-2024 ambulatory [employer] Fv Ob L&D Work Phone: [facility] Comment on above: M-Power Time to Jose A shoemaker Start: 10-16-2024 End: 10-16-[address] 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 Start: 09-29-2024 End: 11-29-2024 Follow-up encounter [...] ambulatory Dr. Jamari Byrne MD Work Phone: [facility] Work Phone: Start: 09-24-2024 End: 09-24-2024 Patient encounter procedure Leoniealli Waldron CNM [facility] Work Phone: Start: 09-24-2024 End: 09-24-2024 Patient encounter procedure Mary GOODWIN Work Phone: [facility] Comment on above: Procedure not gisselle d out (Primary Dx) Start: 09-24-2024 End: 09-24-2024 ambulatory JAMARI BYRNE Facility:[facility] Start: 09-23-2024 End: 09-24-2024 Refill Kelsy Guillermo DO Work Phone: Endocrinology Comment on above: Refill Request Start: 09-20-2024 End: 11-20-2024 Follow-up encounter Kelsy Guillermo DO Work Phone: Endocrinology Start: 09-20-2024 End: 09-20-2024 ambulatory JAMARI BYRNE Facility:[facility] Start: 09-20-2024 End: 09-20-2024 Patient encounter procedure Kelsy Guillermo DO Work Phone: Endocrinology Comment on above: Type 2 diabetes lazaro itus during , antepartum, third trimester (HCC) (Primary Dx); Insulin controlled gestational diabetes mellitus (GDM) in first trimester (HCC); High-risk , third trimester (HCC) Start: 09-14-2024 End: 09-14-2024 E-mail encounter from caregiver Chava Mcdonald Ob L&D Work Phone: [facility] 3 L&D Start: 09-14-2024 End: 09-14-2024 Patient encounter procedure Chava Mcdonald Ob L&D Work Phone: [facility] 3 L&D Comment on above: M-Power [...] Start: 09-08-2024 End: 09-08-2024 ambulatory JAMARI BYRNE Facility:[facility] Start: 09-07-2024 End: 10-20-2024 Telephone encounter Kelsy Guillermo DO Work Phone: Endocrinology Comment on above: Blood Sugar Reading Patient Question Start: 09-07-2024 End: 09-07-2024 ambulatory JAMARI BYRNE Facility:[facility] Start: 09-07-2024 End: 09-07-2024 Patient encounter [...] 15 minutes Jamari Byrne MD Work Phone: [facility] Comment on above: Exercise-induced ast hma (HHS-HCC); Bipolar depression (Multi) Start: 09-06-2024 End: 09-06-2024 ambulatory [facility] Ambulatory Start: 09-04-2024 End: 09-06-2024 Refill William Gramajo MD Work Phone: OB/Gynecology Comment on above: Med Change Request Start: 09-03-2024 End: 11-03-2024 Follow-up encounter William Gramajo MD Work Phone: OB/Gynecology Start: 09-02-2024 End: 09-02-2024 ambulatory [facility] Facility: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 Facility:[facility] Start: 08-10-2024 End: 08-10-2024 Patient encounter procedure Whi Tech 1 Lens Grinding Machine Operator [employer] Maternal Medicine Comment [...] Start: 07-26-2024 End: 07-26-2024 ambulatory JAMARI BYRNE Facility:[facility] Start: 07-26-2024 End: 07-26-2024 Patient encounter procedure Kelsy Guillermo DO Work Phone: Endocrinology Comment on above: Type 2 diabetes lazaro itus complicating , antepartum, second trimester (Primary Dx); Insulin controlled gestational diabetes mellitus (GDM) in first trimester; High-risk , second trimester Start: 07-23-2024 End: 07-23-2024 ambulatory [facility] Facility:[facility] Start: 07-23-2024 End: 07-23-2024 Patient encounter [...] Sugar Reading Start: 07-13-2024 End: 07-13-2024 ambulatory [facility] Facility: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 Start: 06-15-2024 End: 06-15-2024 Patient encounter procedure Whi Tech 1 Lens Grinding Machine Operator [employer] Maternal Medicine Comment on above: Encounter for antena boone screening for malformation using ultrasound (Primary Dx); 13 weeks gestation of H/O macrosomia in in [place] in prior , currently ; Pre-existing type 2 diabetes mellitus in in first trimester; History of pre-eclampsia Start: 06-15-2024 End: 06-15-2024 ambulatory JAMARI L CHAVEZ Facility:[facility] Start: 06-12-2024 End: 06-14-2024 ambulatory Kelsy Guillermo DO Work Phone: Endocrinology Comment on above: Glucose monitor Start: 06-11-2024 End: 06-11-2024 Telephone encounter Kelsy Guillermo DO Work Phone: Endocrinology Comment on above: Blood Sugar Reading Start: 06-07-2024 End: 06-07-2024 ambulatory [facility] Facility:[facility] Start: 06-07-2024 End: 06-07-2024 Patient encounter [...] Blood Sugar Reading Start: 05-26-2024 End: 05-26-2024 [facility] Facility:[facility] Start: 05-26-2024 End: 05-26-2024 Office outpatient [...] patient visit Reza Dyer DO Work Phone: [facility] Emergency Medicine Comment on above: Abdominal pain durin g in first trimester ([facility]) (Primary Dx) Start: 05-20-2024 End: 05-25-2024 Telephone [...] 05-10-2024 End: 05-10-2024 Telephone encounter Zayda Parker APRN.BUSINESS OBJECTS DEVELOPER Work Phone: OB/Gynecology Comment on above: Results Start: 05-09-2024 End: 05-09-2024 Telephone encounter Kelsy Guillermo DO Work Phone: Endocrinology Comment on above: Blood Sugar Reading Start: 05-07-2024 End: 05-07-2024 ambulatory [facility] Facility:[facility] Start: 05-07-2024 End: 05-07-2024 Patient encounter procedure Zayda Parker APRN.BUSINESS OBJECTS DEVELOPER Work Phone: OB/Gynecology Comment on above: Encounter [...] cervical cancer Start: 05-04-2024 End: 05-04-2024 ambulatory [facility] Ambulatory Start: 05-04-2024 End: 05-04-2024 Office outpatient visit 15 minutes Jamari Byrne MD Work Phone: [facility] Comment on above: Bipolar depression ( Multi) (Primary Dx); Hyperglycemia due to diabetes mellitus (Multi); Cigarette nicotine dependence with other nicotine-induced disorder Start: 05-03-2024 End: 05-03-2024 ambulatory JAMARI BYRNE Facility:[facility] Start: 05-03-2024 End: 05-03-2024 Patient encounter [...] End: 04-30-2024 ambulatory Tee Li RN NURSE BEHAVIORAL HEALTH WORKER Comment on above: Blood Sugar Elevatio n (/) Start: 04-28-2024 End: 04-28-2024 Office outpatient visit 25 minutes Joanie Hurtado APRN-BUSINESS OBJECTS DEVELOPER Work Phone: [facility] Comment on above: Bacterial vaginosis (Primary Dx); Less than 8 weeks gestation of ([facility]-HCC) Start: 04-28-2024 End: 04-28-2024 ambulatory JOANIE HURTADO [facility] Ambulatory Start: 04-23-2024 End: 04-23-2024 Telephone encounter Kelsy Guillermo DO Work Phone: Endocrinology Start: 04-19-2024 End: 04-19-2024 Telephone encounter Zayda Parker APRN.BUSINESS OBJECTS DEVELOPER Work Phone: OB/Gynecology Comment on above: Patient Update (ER v isit) Start: 04-18-2024 End: 04-18-2024 Emergency department patient visit JAMARI BYRNE [facility] Emergency Medicine Comment on above: Urinary tract infect ion in mother during first trimester of ([facility]-HCC) (Primary Dx); Herpes simplex vulvovaginitis Start: 04-17-2024 End: 04-17-2024 ambulatory [facility] Start: 04-14-2024 End: 04-15-2024 [facility] Start: 04-14-2024 End: 04-15-2024 Telephone encounter Nurse Lens Grinding Machine Operator soco [place] Work Phone: Obstetrics/Gynecology Comment on above: Care Coordination Start: 01-23-2024 End: 01-23-2024 Office outpatient visit 15 minutes Jamari Byrne MD Work Phone: [facility] Comment on above: Exercise-induced ast hma (HHS-HCC) (Primary Dx); Hyperglycemia due to diabetes mellitus (Multi); Bipolar depression (Multi); Necrobiosis lipoidica Start: 12-25-2023 End: 12-25-2023 Office outpatient visit 15 minutes Jamari Byrne MD Work Phone: [facility] Comment on above: Necrobiosis lipoidic a (Primary Dx); Hyperglycemia due to diabetes mellitus (Multi) Start: 12-16-2023 End: 12-16-2023 ambulatory [facility] Start: 09-15-2023 End: 09-15-2023 ambulatory [facility] Start: 09-15-2023 End: 09-15-2023 Office outpatient visit 25 minutes Jamari Byrne MD Work Phone: [facility] Comment on above: Sebaceous cyst (Prim stephen Dx); Hyperglycemia due to diabetes mellitus (CMS/HCC); Exercise-induced asthma Start: 08-19-2023 End: 08-19-2023 Patient encounter procedure Mary GOODWIN Work Phone: [facility] Comment on above: Pain, dental (Primar y Dx) Start: 07-10-2023 End: 07-10-2023 Office outpatient visit 15 minutes Jamari Byrne MD Work Phone: [facility] Comment on above: Necrobiosis lipoidic a (Primary Dx); Hyperglycemia due to diabetes mellitus ([facility]) Start: 05-09-2023 End: 05-09-2023 Office outpatient visit 15 minutes Jamari Byrne MD Work Phone: [facility] Comment on above: Hyperglycemia due to diabetes mellitus ([facility]) Start: 03-17-2023 End: 03-17-2023 Office outpatient visit 15 minutes Jamari Byrne MD Work Phone: [facility] Comment on above: Exercise-induced ast hma (Primary Dx); Hyperglycemia due to diabetes mellitus ([facility]) Start: 12-13-2022 End: 12-13-2022 Office outpatient visit 25 minutes Jamari Byrne MD Work Phone: [facility] Comment on above: Hyperglycemia due to diabetes mellitus ([facility]) Start: 08-17-2022 End: 08-17-2022 ambulatory [facility] Start: 08-17-2022 End: 08-17-2022 Office outpatient visit 25 minutes Lazara Jon DO Work Phone: [facility] Comment on above: Yeast vaginitis (Verito tee Dx); Late menses; Vaginal discharge Start: 05-24-2022 Office outpatient vi sit 15 minutes Jamari Byrne Work Phone: [facility] Work Phone: Start: 01-04-2022 Office outpatient vi sit 10 minutes Jamari Byrne Work Phone: [facility] Work Phone: Start: 12-25-2021 Office outpatient vi sit 15 minutes Jamari Byrne Work Phone: [facility] [employer] Work Phone: Start: 12-17-2021 Office outpatient vi sit 15 minutes Jamari Byrne Work Phone: [facility] [employer] Work Phone: Start: 12-10-2021 Chart Update Jamari L Robbie r Work Phone: [address] Work Phone: Start: 11-27-2021 Chart Update Jamari Avalos r Work Phone: [address] Work Phone: Start: 11-26-2021 Initial preventive medicine new pt age 18-39yrs Jamari Byrne Work Phone: [address] Work Phone: Start: 11-13-2021 AUDIT Jamari Avalos r Work Phone: [facility] Work Phone: Start: 08-03-2021 End: 08-04-2021 ambulatory KATIANA Diehl [facility] Start: 07-03-2021 AUDIT Rich L Oberha user Work Phone: [facility] Work Phone: Start: 05-29-2021 AUDIT Rich L Oberha user Work Phone: [facility] Work Phone: Start: 01-04-2021 Office outpatient vi sit 25 minutes Rich L Oberhauser Work Phone: [facility] Work Phone: Start: 12-26-2020 AUDIT Rich L Oberha user Work Phone: [facility] Work Phone: Start: 11-16-2020 AUDIT Rich L Oberha user Work Phone: [facility] Work Phone: Start: 11-02-2020 Office outpatient vi sit 25 minutes Rich L Oberhauser Work Phone: [facility] Work Phone: Start: 10-23-2020 End: 10-24-2020 Emergency department patient visit Epifanio Sorensen [facility] Emergency 15 Start: 08-24-2020 End: 08-24-2020 Orders Only Tessa Khaliljulienilsa Work Phone: [facility] Start: 07-19-2020 End: 07-20-2020 Patient encounter procedure [facility] Start: 07-19-2020 End: 07-19-2020 Subsequent hospital visit by physician Srini Medina Work Phone: [facility] EEG Comment on above: Seizure (HCC) Start: 07-05-2020 End: 07-05-2020 Patient encounter procedure [facility] Start: 03-21-2020 End: 03-22-2020 Patient encounter procedure [facility] Start: 03-21-2020 End: 03-21-2020 Subsequent hospital visit by physician Maty Chavez Work Phone: [facility] Sleep Lab Comment on above: MG (obstructive sle ep apnea) Start: 03-17-2020 End: 03-17-2020 Patient encounter procedure MATY CHAVEZ [facility] Start: 01-11-2020 Patient encounter procedure Rich Ng [facility] Work Phone: Start: 12-14-2019 Patient encounter procedure Rich Ng [facility] Work Phone: Start: 12-08-2019 End: 12-12-2019 Patient encounter procedure [facility] Start: 12-08-2019 End: 12-08-2019 Office outpatient new 45 minutes Srini Medina Work Phone: [facility] Phys[facility] Comment on above: Seizure (HCC) Start: 12-07-2019 Patient encounter procedure [facility] Start: 11-09-2019 Patient encounter procedure Rich Ng [facility] Work Phone: Start: 10-21-2019 Patient encounter procedure Rich Ng [facility] Work Phone: Start: 09-29-2019 Patient encounter procedure Rich Ng [facility] Work Phone: Start: 09-27-2019 Patient encounter procedure Rich Ng [facility] Work Phone: Start: 05-19-2019 Patient encounter procedure Juno Blackburn [place] [address] [employer] Work Phone: Start: 05-13-2019 Patient encounter procedure Juno Blackburn [place] [address] [employer] Work Phone: Start: 03-21-2019 End: 03-21-2019 Emergency department patient visit Kelsey Stewart Work Phone: [facility] Emergency Department Comment on above: Abdominal cramps (Pr imary Dx); Nausea Start: 03-11-2019 End: 03-11-2019 Emergency department patient visit Charlie Cannon Work Phone: [facility] Emergency Department Comment on above: Anxiety (Primary Dx) Start: 02-10-2019 End: 02-10-2019 Emergency department patient visit Lloyd Quiles Work Phone: [facility] Emergency Department Comment on above: 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) Start: 10-06-2018 End: 10-07-2018 Emergency department patient visit Kelsey Stewart Work Phone: [facility] Emergency Department Comment on above: Viral upper respirat ory infection (Primary Dx) Start: 10-04-2018 End: 10-05-2018 Emergency department patient visit David Wilson Work Phone: [facility] Emergency Department Comment on above: Hyperglycemia (Prima ry Dx); Diabetes mellitus due to underlying condition with hyperosmolarity 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, without long-term current use of insulin (HCC) Start: 09-12-2018 End: 09-12-2018 Emergency department patient visit Verona Lopez [place] [facility] Start: 07-16-2018 End: 07-16-2018 Emergency department patient visit Kelsey Stewart Facility:[facility] Start: 02-01-2018 End: 02-02-2018 Emergency department patient visit Elie MckoyJuno Hernadez Facility:[facility] Start: 01-23-2018 Emergency department patient visit FABIO Jhoan HAWK [facility] Start: 12-14-2017 End: 12-14-2017 Emergency department patient visit MILLY SINCLAIR Facility: Start: 11-30-2017 End: 11-30-2017 Emergency department patient visit PCP Unknown Physician Facility:[facility] Start: 11-21-2017 End: 11-21-2017 Ambulatory KADE L ALEXTRUONG Facility:[facility] Start: 11-18-2017 End: 11-19-2017 Patient encounter procedure [facility] Start: 11-15-2017 End: 11-15-2017 Emergency department patient visit VERONA ARMINDA Facility:[facility] Start: 10-09-2017 End: 10-09-2017 Emergency department patient visit VERONA ARMINDA Facility:[facility] Start: 09-28-2017 End: 09-28-2017 Emergency department patient visit VERONA ARMINDA Facility:[facility] Start: 09-18-2017 End: 09-18-2017 Emergency department patient visit JOSIE HERNANDEZ Facility:[facility] Start: 07-03-2017 End: 07-03-2017 Patient encounter procedure [facility] Menarche Rich Lopez er Work Phone: [facility] Work Phone: Comment on above: AGE 15; Procedures Date Procedure Procedure Detail Performing Clinician Start: 02-21-2025 Iaadiadoo influenza Faby Galarza ASSISTANT WAREHOUSE MANAGER-BUSINESS OBJECTS DEVELOPER Work Phone: Start: 02-21-2025 SARS-CoV-2 (COVID-19 ) RNA [Presence] in Unspecified specimen by SUMIT with probe detection Leonie Galarza ASSISTANT WAREHOUSE MANAGER-BUSINESS OBJECTS DEVELOPER Work Phone: Start: 02-19-2025 UA DIP,URINE HCG (POC) Ángela Norris ASSISTANT WAREHOUSE MANAGER.BUSINESS OBJECTS DEVELOPER Work Phone: Start: 01-28-2025 Gluc bld gluc mntr d ev cleared fda spec home use Issac Romero ASSISTANT WAREHOUSE MANAGER.BUSINESS OBJECTS DEVELOPER Work Phone: Start: 01-26-2025 Urnls dip stick/tabl [...] Phone: Start: 10-16-[address] Anderson Bryne MD Work Phone: Start: 09-24-2024 Urnls dip [...] after 1st trimest 06/09 gestation Zayda Parker APRN.BUSINESS OBJECTS DEVELOPER Work Phone: Start: 07-01-2024 Radiologic exam chest 2 views Sixto Myers MD Work Phone: Start: 07-01-2024 Influenza virus A an d B and SARS-CoV-2 (COVID-19) identified in Respiratory specimen by SUMIT with probe detection Sixto Myers MD Work Phone: Start: 06-15-2024 Us nuchal kraus slucency 1st gestation Zayda Parker APRN.BUSINESS OBJECTS DEVELOPER Work Phone: Start: 06-07-2024 Hemoglobin A1c/Hemoglobin.total in Blood Kelsy L Radha DO Work Phone: Start: 05-26-2024 Urnls dip stick/tabl et rgnt non-auto w/o micrscp Krys Kulkarni MD Work Phone: Start: 05-21-2024 Urinalysis complete W Reflex Culture panel - Urine Reza Dyer DO Work Phone: Start: 05-21-2024 Urnls dip stick/tabl et reagent auto microscopy Reza Dyer DO Work Phone: Start: 05-21-2024 Comprehensive metabolic panel Rzea Dyer DO Work Phone: Start: 05-07-2024 Antibody screen JAMARI BYRNE Comment on above: Order Comment: Speci men Type: BLOOD SPECIMENOrdering Facility: [facility] Address: [address] [place] [address] Performed By: #### T SPN ####CC MAIN BLOOD BANKCLIA [id number] [place] [address] [place] Start: 05-07-2024 Us uterus l imited 1/> fetuses Zayda Parker APRN.BUSINESS OBJECTS DEVELOPER Work Phone: Start: 05-07-2024 Microscopic observat ion [Identifier] in Cervix by Cyto stain Reza Dyer DO Work Phone: Start: 05-03-2024 Hemoglobin A1c/Hemoglobin.total in Blood Kelsy L Radha DO Work Phone: Start: 04-18-2024 Gonadotropin chorion ic quantitative Angy Sierradervimal ASSISTANT WAREHOUSE MANAGER-BUSINESS OBJECTS DEVELOPER Work Phone: Start: 04-18-2024 Urinalysis microscop ic panel - Urine Qualitative by Automated Angy Sierradervimal ASSISTANT WAREHOUSE MANAGER-BUSINESS OBJECTS DEVELOPER Work Phone: Start: 04-18-2024 End: 04-18-2024 Iadna chlamydia trachomatis amplified probe tq Angy Staples Bilderback ASSISTANT WAREHOUSE MANAGER-BUSINESS OBJECTS DEVELOPER Work Phone: Start: 04-18-2024 Urine test visual color cmprsn meths Angy Staples Bilderback ASSISTANT WAREHOUSE MANAGER-BUSINESS OBJECTS DEVELOPER Work Phone: Start: 04-15-2024 Urinalysis MILLY Fernandez Comment on above: Result Comment: URIN ALYSIS Performed By: #### [id number] #### [facility],[address] [place] [address] Start: 09-15-2023 Basic metabolic 2000 panel - Serum or Plasma JAMARI BYRNE Start: 09-15-2023 Hemoglobin A1c/Hemoglobin.total in Blood JAMARI BYRNE Start: 08-17-2022 Urine test visual color cmprsn meths Lazara oJn DO Work Phone: Start: 11-26-2021 Microscopic observat [...] metabolic 1998 panel - Serum or Plasma iRch Ng Start: 09-27-2019 Blood count complete auto&auto difrntl wbc Rich Hernandez Start: 09-27-2019 Gonadotropin chorion ic quantitative Rich Oberhauser Start: 09-27-2019 Hemoglobin glycosylated a1c Rich Oberhauser Start: 09-27-2019 TSH WITH REFLEX TO F REE T4 IF ABNORMAL Rich Oberhauser Start: 05-13-2019 Gonadotropin chorion ic quantitative Juno [place] Start: 03-22-2019 Choriogonadotropin.b eta subunit ( test) [...] olume] in Urine by Test strip Charlie [employer] Start: 02-10-2019 Choriogonadotropin ( test) [Presence] in Urine [employer] Work Phone: Start: 02-10-2019 Drugs of abuse urine screening test [employer] Work Phone: Start: 02-10-2019 Ethanol [Mass/volume ] [...] Phone: Start: 10-07-2018 Glucose [Mass/volume] in Blood [facility] Start: 10-05-2018 End: 10-05-2018 Glucose [Mass/volume] in Blood [facility] Start: 10-05-2018 Glucose [Mass/volume] in Blood [facility] Start: 10-05-2018 Evaluation of arteri al blood gas studies David Wilson Work Phone: Start: 10-05-2018 Standard chest X-ray St jerad Piaz Work Phone: Start: 10-05-2018 Beta hydroxybutyrate [Moles/volume] [...] Phone: Start: 10-04-2018 Glucose [Mass/volume] in Blood [facility] Start: 09-13-2018 Glucose blood reagent strip June Middleton Work Phone: Start: 09-13-2018 CBC, EDIF, PLATELET Clara ne Raymond [employer] Work Phone: Start: 09-13-2018 Choriogonadotropin ( test) [Presence] in Serum or Plasma June A [employer] Work Phone: Start: 09-13-2018 Comprehensive metabolic panel June A [employer] Work Phone: Start: 09-13-2018 Choriogonadotropin ( test) [Presence] in Urine June A [employer] Work Phone: Start: 09-13-2018 Urinalysis microscopic only June A [employer] Work Phone: Start: 09-13-2018 URINALYSIS, MACRO June [...] or Population) (1 - 1-dose 75+ series) [facility] Start: 2045 Zoster Vaccines (1 o f 2) Zoster Vaccines (1 of 2) [facility] Start: 10-04-2034 DTaP/Tdap/Td Vaccine s (8 - Td or Tdap) DTaP/Tdap/Td Vaccines (8 - Td or Tdap) [facility] Start: 10-04-2034 Tetanus vaccination TETANUS [facility] Start: 10-04-2034 Urine microalbumin profile DTaP,Tdap,Td Vaccine (8 - Td or Tdap) [facility] Start: 01-20-2030 Tetanus vaccination Tetanus: Every 1 0yrs [facility] Start: 05-07-2027 Screening for malign ant neoplasm of cervix [facility] Start: 07-16-2026 Glaucoma screening Diabetes: R etinopathy Screening [facility] Start: 02-22-2026 Glaucoma screening Diabetes: R etinopathy Screening [facility] Start: 01-13-2026 Glaucoma screening Diabetes: R etinopathy Screening [facility] Start: 11-06-2025 Yearly Adult Physical Yearly Adult P hysical [facility] Start: 08-03-2025 End: 08-03-2025 Patient encounter procedure 08/03/2025 10:20 AM EST Office Visit [facility] [address] [place] [address] Jamari Byrne MD [address] [facility], [address] [place] [address] [facility] Start: 07-23-2025 Hemoglobin A1c measurement HbA1C [facility] Start: 07-20-2025 End: 07-20-2025 Patient encounter procedure 07/20/2025 11:20 AM EST Office Visit Endocrinology [address] [place] [address] Kelsy Guillermo, DO [address] [place], [place] [id number] 6 month follow up Endocrinology Comment on above: 6 month follow up Start: 07-11-2025 End: 07-11-2025 ambulatory 07/11/2025 9:45 AM EST Results Only Haroldo Lomax [facility] [address] [place] [address] [facility] Start: 07-10-2025 End: 10-09-2025 Comprehensive metabolic 2000 panel - Serum or Plasma COMPREHENSIVE METABOLIC PANEL Lab Routine 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, 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, 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 senior living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 (HCC) Expected: 07/10/2025 (Approximate), Expires: 10/09/2025 [facility] Comment on above: Expected: 07/10/2025 (Approximate), Expires: 10/09/2025 Start: 07-10-2025 End: 10-09-2025 Hemoglobin A1c in Blood HEMOGLOBIN A1C Lab Routine 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, 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, 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 senior living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 (HCC) Expected: 07/10/2025 (Approximate), Expires: 10/09/2025 [facility] Comment on above: Expected: 07/10/2025 (Approximate), Expires: 10/09/2025 Start: 07-10-2025 End: 10-09-2025 Lipid 1996 panel - Serum or Plasma LIPID PANEL, FASTING Lab Routine 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, 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, 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 senior living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 (HCC) Expected: 07/10/2025 (Approximate), Expires: 10/09/2025 [facility] Comment on above: Expected: 07/10/2025 (Approximate), Expires: 10/09/2025 Start: 07-10-2025 End: 10-09-2025 Microalbumin/Creatinine [Mass Ratio] in Urine ALBUMIN/CREATININE RATIO, URINE Lab Routine 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, 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, 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 (HCC) Expected: 07/10/2025 (Approximate), Expires: 10/09/2025 [facility] Comment on above: Expected: 07/10/2025 (Approximate), Expires: 10/09/2025 Start: 07-10-2025 End: 10-09-2025 Thyrotropin [Units/volume] in Serum or Plasma THYROID STIMULATING HORMONE Lab Routine 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, 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, 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 senior living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 (HCC) Expected: 07/10/2025 (Approximate), Expires: 10/09/2025 [facility] Comment on above: Expected: 07/10/2025 (Approximate), Expires: 10/09/2025 Start: 04-22-2025 Hemoglobin A1c measurement Diabetes: Hemoglobin A1C [facility] Start: 03-22-2025 Hemoglobin A1c measurement HbA1C [facility] Start: 03-09-2025 End: 03-09-2026 NM Stomach Views for gastric emptying solid phase W radionuclide PO NM gastric emptying solid Imaging Routine Diabetic gastroparesis associated with type 2 diabetes mellitus (Multi) Expected: 03/09/2025, Expires: 03/09/2026 [facility] Service Area Work Phone: Comment on above: Expected: 03/09/2025 , Expires: 03/09/2026 Start: 03-09-2025 End: 03-09-2025 Patient encounter procedure 03/09/2025 9:20 AM EDT Office Visit [facility] [address] [place] [id number] Jamari Byrne MD [address] [facility] [address] [place] [address] [facility] Start: 02-13-2025 Glaucoma screening Diabetes: R etinopathy Screening [facility] Start: 02-07-2025 COVID-19 VACCINE ( season) COVID-19 VACCINE ( season) [facility] Start: 02-07-2025 Influenza vaccination [facility] Start: 02-04-2025 End: 02-04-2025 Patient encounter procedure 02/04/2025 10:20 AM EDT Office Visit [facility] [address] [place] [address] Jamari Byrne MD [address] [facility] [address] [place] [address] [facility] Start: 01-26-2025 [facility] Start: 01-23-2025 [facility] Start: 01-21-2025 [facility] Start: 01-20-2025 End: 01-20-2025 Follow-up encounter 01/20/2025 2:00 PM EDT Education Endocrinology [address] [place] [address] [place] [address] [place] [address] follow up Endocrinology Comment on above: follow up Start: 01-20-2025 End: 01-20-2025 Patient encounter procedure Endocrinology Comment on above: see me for post part um f/u Jan 20 (virtual or in person) 6 week post Start: 01-19-2025 End: 01-19-2025 Patient encounter procedure 01/19/2025 1:20 PM EDT Office Visit OB/Gynecology [address] [place], [place] [id number] Whit Morton MD [address] [place] [address] 6 week post & pre-op surgery 01/28 OB/Gynecology Comment on above: 6 week post & pre-op surgery 01/28 Start: 12-21-2024 End: 12-21-2024 Patient encounter procedure 12/21/2024 1:40 PM EDT Office Visit OB/Gynecology [address] [place] [address] William Gramajo MD [address] [place] [address] 2 week post OB/Gynecology Comment on above: 2 week post Start: 12-16-2024 Vital signs measurements [facility] Start: 12-16-2024 End: 12-16-2024 Patient encounter procedure OB/Gynecology Comment on above: NST OB/NST Start: 12-16-2024 Patient discharge [facility] Start: 12-13-2024 End: 12-13-2024 Patient encounter procedure [facility] Comment on above: BPP OB/BPP Start: 12-09-2024 End: 12-09-2024 Patient encounter procedure OB/Gynecology Comment on above: NST OB/NST Start: 12-09-2024 Patient discharge [facility] Start: 12-08-2024 [facility] Start: 12-07-2024 Documentation procedure [facility] Start: 12-07-2024 Administration of medication [facility] Start: 12-07-2024 Application of ice collar, cap or bag [facility] Start: 12-07-2024 Catheterization of vein [facility] Start: 12-07-2024 Introduction of urin setphen catheter [facility] Start: 12-07-2024 Measuring intake and output [facility] Start: 12-07-2024 Notification of physician [facility] Start: 12-07-2024 Procedure discontinued [facility] Start: 12-07-2024 Provision of activit y privileges [facility] Start: 12-07-2024 Vital signs measurements [facility] Start: 12-07-2024 End: 12-07-2024 [facility] Start: 12-07-2024 Admission procedure [facility] Start: 12-07-2024 Consultation [facility] Start: 12-06-2024 End: 12-06-2024 Patient encounter procedure [facility] Comment on above: BPP OB/BPP Start: 12-02-2024 End: 12-02-2024 Patient encounter procedure OB/Gynecology Comment on above: NST OB/NST Start: 11-30-2024 End: 11-30-2024 Patient encounter procedure 11/30/2024 3:30 PM EDT Routine Office Visit [facility] [address] [place] [address] GROWTH/BPP/MFM [facility] Comment on above: GROWTH/BPP/MFM Start: 11-26-2024 Screening for malign ant neoplasm of cervix [facility] Start: 11-25-2024 End: 11-25-2024 Patient encounter procedure OB/Gynecology Comment on above: NST OB/NST Start: 11-22-2024 End: 11-22-2024 Patient encounter procedure 11/22/2024 9:00 AM EDT Routine Office Visit Maternal Medicine [address] [place] [address] BPP [facility] Comment on above: BPP Start: 11-18-2024 End: 11-18-2024 Patient encounter procedure OB/Gynecology Comment on above: NST OB/NST Start: 11-15-2024 Nonstress test [facility] Start: 11-15-2024 Obstetric monitoring [facility] Start: 11-15-2024 Vital signs measurements [facility] Start: 11-15-2024 End: 11-15-2024 [facility] Start: 11-15-2024 Bacteria identified in Urine by Culture Urine Culture [facility] Start: 11-15-2024 End: 11-15-2024 Patient encounter procedure [facility] Comment on above: BPP OB/BPP Start: 11-15-2024 Patient discharge [facility] Start: 11-11-2024 End: 11-11-2024 Patient encounter procedure OB/Gynecology Comment on above: NST NST/OB Start: 11-08-2024 End: 11-08-2024 Patient encounter procedure 11/08/2024 9:00 AM EDT Routine Office Visit [facility] [address] [place] [address] BPP [facility]aternal Medicine Comment on above: BPP Start: 11-05-2024 End: 02-04-2025 BILE ACIDS FRACT BLD [facility] Comment on above: Expected: 11/05/2024 , Expires: 02/04/2025 Start: 11-05-2024 End: 02-04-2025 BILE ACIDS, TOTAL [facility] Work Phone: Comment on above: Expected: 11/05/2024 , Expires: 02/04/2025 Start: 11-05-2024 End: 11-05-2024 Patient encounter procedure OB/Gynecology Comment on above: NST/OB NST/OB - encourage o ptho f/u JG-NST/OB Start: 11-04-2024 End: 11-04-2024 Patient encounter procedure 11/04/2024 2:20 PM EDT Office Visit [facility] [address] [place] [id number] Jamari Byrne MD [address] [facility] [address] [place] [address] [facility] Start: 11-04-2024 End: 11-04-2024 Follow-up encounter 11/04/2024 11:00 AM EDT Education Endocrinology [address] [place], [place] [id number] [place] [address] [place], [place] [phone] follow up on 11/04/24 at 11 am. [...] Visit Maternal Medicine [address] [place] [address] BPP Maternal Medicine Comment on above: BPP Start: 10-25-2024 End: 01-24-2025 PARVOVIRUS B19 IGG+M [facility] Work Phone: Comment on above: Expected: 10/25/2024 , Expires: 01/24/2025 Start: 10-25-2024 End: 10-25-2024 Patient encounter procedure OB/Gynecology Comment on above: NST OB Routine with EKG Start: 10-18-2024 End: 10-18-2024 Patient encounter procedure 10/18/2024 1:50 PM EDT Routine Office Visit OB/Gynecology [address] [place] [address] Keshav Loving MD [address] [facility] [place] [address] OB Routine OB/Gynecology Comment on above: OB Routine Start: 10-16-2024 [facility] Start: 10-16-2024 Bacteria identified in Urine by Culture Urine Culture [facility] Start: 10-16-2024 Iv infusion therapy prophylaxis/dx ea hour THER/PROPH/DIAG IV INF [facility] Start: 10-16-2024 Iv infusion therapy/prophylaxis /dx 1st to 1 hr THER/PROPH/DIAG IV INF INIT [facility] Start: 10-16-2024 Patient discharge [facility] Start: 10-12-2024 End: 10-12-2024 ambulatory 10/12/2024 10:00 AM EDT Procedure Pediatric Cardiology [address] [place] [address] Pamela Haskins MD [address] [place] [address] FU echo Pediatric Cardiology Comment on above: FU echo Start: 10-12-2024 End: 10-12-2024 Patient encounter procedure 10/12/2024 10:00 AM EDT Office Visit Pediatric Cardiology [address] [place] [address] FU echo Pediatric Cardiology Comment on above: FU echo Start: 10-04-2024 End: 01-03-2025 Bacteria identified in Urine by Culture [facility] Comment on above: Expected: 10/04/2024 , Expires: 01/03/2025 Start: 10-04-2024 End: 01-03-2025 Protein/Creatinine [Mass Ratio] in Urine [facility] Comment on above: Expected: 10/04/2024 , Expires: 01/03/2025 Start: 10-04-2024 End: 10-04-2024 Patient encounter procedure [facility] Comment on above: Gr=[facility] OB Start: 09-24-2024 End: 09-24-2024 Patient encounter procedure 09/24/2024 3:15 PM EDT Routine Office Visit OB/Gynecology [address] [place] [address] Leonie Waldron APRN.CN [address] [place] [address] Supervision of high risk in second trimester (HCC) (Primary Dx); 27 weeks gestation of (HCC); Burning with urination; Vaginal discharge OB/Gynecology Comment on above: Supervision of high risk in second trimester (HCC) (Primary Dx); 27 weeks gestation of (HCC); Burning with urination; Vaginal discharge Start: 09-24-2024 Obstetric monitoring [facility] Start: 09-24-2024 [facility] Start: 09-24-2024 Vital signs measurements [facility] Start: 09-24-2024 Patient discharge [facility] Start: 09-20-2024 End: 09-20-2024 Patient encounter procedure 09/20/2024 1:40 PM EDT Office Visit Endocrinology [address] [place] [address] Kelsy Guillermo, DO [address] [place] [address] see me in 7 weeks for f/u. Endocrinology Comment on above: see me in 7 weeks fo r f/u. Start: 09-07-2024 End: 09-07-2024 Patient encounter procedure [facility]aternal [facility] Comment on above: Growth OB Routine Start: 09-05-2024 Hemoglobin A1c measurement Diabetes: Hemoglobin A1C [facility] Start: 09-02-2024 End: 09-02-2024 Patient encounter procedure 09/02/2024 11:00 AM EDT Routine Office Visit Maternal Medicine [address] [place] [address] Growth [facility] Comment on above: Growth Start: 08-24-2024 End: 08-24-2024 ambulatory 08/24/2024 1:00 PM EDT Procedure Pediatric Cardiology [address] [place] [address] Pamela Haskins MD [address] [place] [address] Pre-existing type 2 diabetes mellitus in in first trimester [O24.111] Pediatric Cardiology Comment on above: Pre-existing type 2 diabetes mellitus in in first trimester [O24.111] Start: 08-24-2024 End: 08-24-2024 Patient encounter procedure 08/24/2024 1:00 PM EDT Office Visit Pediatric Cardiology 1 [place] [address] Pre-existing type 2 diabetes mellitus in in first trimester [O24.111] Pediatric Cardiology Comment on above: Pre-existing type 2 diabetes mellitus in in first trimester [O24.111] Start: 08-10-2024 End: 08-10-2024 Patient encounter procedure Maternal Medicine Comment on above: Anatomy Scan anatomy / mfm OB Routine Start: 08-03-2024 Hemoglobin A1c measurement Diabetes: Hemoglobin A1C [facility] Start: 07-26-2024 End: 07-26-2024 Patient encounter procedure 07/26/2024 2:00 PM EST Office Visit Endocrinology [address] [place] [address] Kelsy Guillermo, DO [address] [place], [place] [id number] 8 weeks v/u Endocrinology Comment on above: 8 weeks v/u Start: 07-13-2024 End: 07-13-2025 OBSTETRIC ULTRASOUND WHI OBSTETRIC ULTRASOUND WHI Anc Imaging Routine Encounter for anatomic survey Expected: 07/13/2024, Expires: 07/13/[address] [facility] Work Phone: Comment on above: Expected: 07/13/2024 , Expires: 07/13/2025 Start: 07-13-2024 End: 07-13-2024 Patient encounter procedure Maternal Medicine Comment on above: Early Anatomy Scan OB Routine Start: 07-12-2024 End: 07-12-2024 Patient encounter procedure 07/12/2024 10:00 AM EST Office Visit OB/Gynecology [address] [place], [place] [address] Lucy Mariscal APRN.BUSINESS OBJECTS DEVELOPER [address] [place] [address] ANNUAL OB/Gynecology Comment on above: ANNUAL Start: 06-16-2024 End: 06-16-2024 ambulatory 06/16/2024 10:00 AM EST [facility] Endocrinology [address] [place] [address] Carrie Larsen, [place] [address] [place] [address] see telecommunications administrator (Carrie Larsen) virtual visit Endocrinology Comment on above: see telecommunications administrator (Hiral Larsen) virtual visit Start: 06-15-2024 End: 09-14-2024 Chromosome 21 trisomy [Presence] in Blood or Tissue by Cytogenetics [facility] Work Phone: Comment on above: Expected: 06/15/2024 , Expires: 09/14/2024 Start: 06-15-2024 End: 06-15-2024 Patient encounter procedure Maternal Medicine Comment on above: Nuchal/ Consult to M FM Start: 06-09-2024 Medicare Advantage Annual Wellness Visit Medicare Advantage Annual Wellness Visit [facility] Start: 06-08-2024 End: 06-08-2024 Patient encounter procedure 06/08/2024 1:10 PM EST Routine Office Visit OB/Gynecology [address] [address] Piper Julian MD [address] [place] [address] New Ob LMP 03/13/2024 OB/Gynecology Comment on above: New Ob LMP 03/13/2024 Start: 06-07-2024 End: 06-07-2024 Patient encounter procedure 06/07/2024 2:20 PM EST Office Visit Endocrinology [address] [place], [place] [phone] Kelsy Guillermo DO [address] [place] [address] see me in 4 weeks (virtual visit) Endocrinology Comment on above: see me in 4 weeks (v irtual visit) Start: 05-26-2024 End: 05-26-2024 Patient encounter procedure 05/26/2024 10:10 AM EST Routine Office Visit OB/Gynecology [address] [place], [place] [phone] Krys Kulkarni MD [address] [place] [address] Previous MFM records in JG chart prep folder OB/Gynecology Comment on above: Previous MFM records in JG chart prep folder Start: 05-07-2024 End: 08-06-2024 ANEMIA REFLEX PANEL [facility] Work Phone: Comment on above: Expected: 05/07/2024 , Expires: 08/06/2024 Start: 05-07-2024 End: 08-06-2024 CARRIER SCREEN, STANDARD [facility] Comment on above: Expected: 05/07/2024 , Expires: 08/06/2024 Start: 05-07-2024 End: 08-06-2024 Hepatitis B virus surface Ag [Presence] in Serum [facility] Comment on above: Expected: 05/07/2024 , Expires: 08/06/2024 Start: 05-07-2024 End: 08-06-2024 Hepatitis C virus Ab [Presence] in Serum [facility] Comment on above: Expected: 05/07/2024 , Expires: 08/06/2024 Start: 05-07-2024 End: 08-06-2024 HIV 1+2 Ab [Presence] in Serum or Plasma by Immunoassay [facility] Comment on above: Expected: 05/07/2024 , Expires: 08/06/2024 Start: 05-07-2024 End: 05-07-2025 NUCHAL TRANSLUCENCY WHI NUCHAL TRANSLUCENCY WHI Anc Imaging Routine with uncertain dates in first trimester Expected: 05/07/2024, Expires: 05/07/2025 [facility] Comment on above: Expected: 05/07/2024 , Expires: 05/07/2025 Start: 05-07-2024 End: 05-07-2025 OBSTETRIC ULTRASOUND WHI OBSTETRIC ULTRASOUND WHI Anc Imaging Routine with uncertain dates in first trimester Expected: 05/07/2024, Expires: 05/07/2025 [facility] Comment on above: Expected: 05/07/2024 , Expires: 05/07/2025 Start: 05-07-2024 End: 08-06-2024 Protein/Creatinine [Mass Ratio] in Urine [facility] Comment on above: Expected: 05/07/2024 , Expires: 08/06/2024 Start: 05-07-2024 End: 08-06-2024 RUBELLA IGG ANTIBODY [facility] Comment on above: Expected: 05/07/2024 , Expires: 08/06/2024 Start: 05-07-2024 End: 08-06-2024 SYPHILIS TREPONEMAL W/REFLEX [facility] Comment on above: Expected: 05/07/2024 , Expires: 08/06/2024 Start: 05-07-2024 End: 08-06-2024 Thyrotropin [Units/volume] in Serum or Plasma [facility] Comment on above: Expected: 05/07/2024 , Expires: 08/06/2024 Start: 05-07-2024 End: 08-06-2024 TYPE + SCREEN [facility] Comment on above: Expected: 05/07/2024 , Expires: 08/06/2024 Start: 05-07-2024 End: 05-07-2024 Patient encounter procedure OB/Gynecology Comment on above: New Ob LMP 03/13/2024 Start: 05-04-2024 End: 05-04-2024 Patient encounter procedure 05/04/2024 2:20 PM EST Office Visit [facility] [address] [place] [phone] Jamari Byrne MD [address] [facility] [place] [address] [facility] Start: 05-03-2024 End: 05-03-2024 Patient encounter procedure 05/03/2024 2:40 PM EST Office Visit Endocrinology [address] [place] [address] Kelsy Guillermo, DO [address] [place], [place] [phone] Insulin controlled gestational diabetes mellitus (GDM) in first trimester [O24.414] Endocrinology Comment on above: Insulin controlled g estational diabetes mellitus (GDM) in first trimester [O24.414] Start: 03-17-2024 Hemoglobin A1c measurement Diabetes: Hemoglobin A1C [facility] Start: 02-14-2024 Glaucoma screening Diabetes: R etinopathy Screening [facility] Start: 02-08-2024 Covid-19 Vaccine ( season) Covid-19 Vaccine ( season) [facility] Start: 02-08-2024 Influenza vaccination [facility] Start: 01-23-2024 End: 04-24-2024 Hemoglobin A1c/Hemoglobin.total in Blood Hemoglobin A1C Lab Routine Hyperglycemia due to diabetes mellitus (Multi) Expected: 01/23/2024 (Approximate), Expires: 04/24/2024 [facility] Service Area Work Phone: Comment on above: Expected: 01/23/2024 (Approximate), Expires: 04/24/2024 Start: 12-24-2023 End: 12-24-2023 Patient encounter procedure 12/24/2023 11:20 AM EDT Office Visit [facility] [address] [place] [phone] Jamari Byrne MD [address] [facility] [address] [place] [address] [facility] Start: 09-15-2023 End: 09-15-2023 Patient encounter procedure 09/15/2023 10:20 AM EDT Office Visit [facility] [address] [place] [phone] Jamari Byrne MD [address] [facility] [address] [place] [address] [facility] Start: 09-08-2023 End: 07-10-2024 Basic metabolic 2000 panel - Serum or Plasma Basic Metabolic Panel Lab Routine Hyperglycemia due to diabetes mellitus (CMS/HCC) Expected: 09/08/2023 (Approximate), Expires: 07/10/2024 [facility] Service Area Work Phone: Comment on above: Expected: 09/08/2023 (Approximate), Expires: 07/10/2024 Start: 09-08-2023 End: 07-10-2024 Hemoglobin A1c/Hemoglobin.total in Blood Hemoglobin A1C Lab Routine Hyperglycemia due to diabetes mellitus (CMS/HCC) Expected: 09/08/2023 (Approximate), Expires: 07/10/2024 [facility] Work Phone: Comment on above: Expected: 09/08/2023 (Approximate), Expires: 07/10/2024 Start: 07-10-2023 End: 05-09-2024 Basic metabolic 2000 panel - Serum or Plasma Basic Metabolic Panel Lab Routine Hyperglycemia due to diabetes mellitus (CMS/HCC) Expected: 07/10/2023, Expires: 05/09/2024 [facility] Work Phone: Comment on above: Expected: 07/10/2023 , Expires: 05/09/2024 Start: 07-10-2023 End: 05-09-2024 Hemoglobin A1c/Hemoglobin.total in Blood Hemoglobin A1C Lab Routine Hyperglycemia due to diabetes mellitus (CMS/HCC) Expected: 07/10/2023 (Approximate), Expires: 05/09/2024 [facility] Service Area Work Phone: Comment on above: Expected: 07/10/2023 (Approximate), Expires: 05/09/2024 Start: 07-10-2023 End: 07-10-2023 Patient encounter procedure 07/10/2023 10:20 AM EST Office Visit [place] [address] [facility] [address] [place] [phone] Jamari Byrne MD [address] [facility] [address] [place] [address] [facility] Start: 06-11-2023 Hemoglobin A1c measurement Diabetes: Hemoglobin A1C [facility] Start: 06-09-2023 Depression Assessment Depression [facility] Start: 04-23-2023 End: 04-23-2023 Patient encounter procedure 04/23/2023 10:20 AM EST Office Visit [facility] [address] [facility] [address] [place] [phone] Jamari Byrne MD [address] [facility] [address] [place] [address] [facility] Start: 03-15-2023 End: 12-14-2023 Hemoglobin A1c/Hemoglobin.total in Blood Hemoglobin A1C Lab Routine Hyperglycemia due to diabetes mellitus (CMS/HCC) Expected: 03/15/2023 (Approximate), Expires: 12/14/2023 [facility] Service Area Work Phone: Comment on above: Expected: 03/15/2023 (Approximate), Expires: 12/14/2023 Start: 03-05-2023 Hemoglobin A1c measurement Diabetes: Hemoglobin A1C [facility] Start: 02-08-2023 Ophthalmic examinati on and evaluation Diabetes: Retinopathy Screening [facility] Start: 02-07-2023 Covid-19 Vaccine ( season) Covid-19 Vaccine ( season) [facility] Start: 02-07-2023 Influenza vaccination Influenz a Vaccine (#1) [facility] Start: 11-27-2022 Patient encounter procedure ANNUAL, Provider: Genoveva Sutton, Status: Pen, Time: 8:30 AM [facility] [employer] Work Phone: Start: 11-26-2022 History and physical examination, annual for health maintenance Wellness Visit [facility] Start: 08-22-2022 FUV, Provider: Jamari Byrne, Status: Pen, Time: 11:20 AM FUV, Provider: Jamari Byrne, Status: Pen, Time: 11:20 AM [facility] Work Phone: Start: 08-03-2022 Hepatitis B surface antibody level LDL Cholesterol [facility] Start: 08-03-2022 Urine screening for protein [facility] Start: 02-22-2022 FUV, Provider: Jamari Byrne, Status: Pen, Time: 8:40 AM FUV, Provider: Jamari Byrne, Status: Pen, Time: 8:40 AM [facility] Work Phone: Start: 02-07-2022 Influenza vaccination Sequenti al Influenza Vaccine (#1) [facility] Start: 12-25-2021 FUV, Provider: Genoveva Sutton, Status: Pen, Time: 8:45 AM FUV, Provider: Genoveva Sutton, Status: Pen, Time: 8:45 AM [facility] Work Phone: Start: 12-17-2021 FUV, Provider: Genoveva Sutton, Status: Pen, Time: 9:15 AM FUV, Provider: Genoveva Sutton, Status: Pen, Time: 9:15 AM [facility] Work Phone: Start: 10-31-2021 Hemoglobin A1c measurement A1C [facility] Start: 04-05-2021 FUV, Provider: Rich Ng, Status: Pen, Time: 10:20 AM FUV, Provider: Rich Ng, Status: Pen, Time: 10:20 AM [facility] Work Phone: Start: 03-09-2021 Medicare Annual Wellness Visit Medicare Annual Wellness Visit [facility] Start: 01-04-2021 FUV, Provider: Rich Ng, Status: Pen, Time: 10:20 AM FUV, Provider: Rich Ng, Status: Pen, Time: 10:20 AM [facility] Work Phone: Start: 12-13-2020 Patient encounter procedure [facility] Medicine [place] Start: 11-08-2020 End: 11-08-2020 Office Visit 11/08/2020 Office Visit Neurology Srini Medina MD [address] [place] [address] [phone] [facility] Start: 10-11-2020 Urine microalbumin profile DTaP,Tdap,Td Vaccine (7 - Td or Tdap) [facility] Start: 10-07-2020 Depression Remission Assessment (PHQ9) Depression Remission Assessment (PHQ9) [facility] Start: 02-23-2020 Albumin DL <= 20 mg/ L (U) [Mass/Vol] URINE MICROALBUMIN [facility] Start: 02-23-2020 Hepatitis B screening Urine Albumin:Creatinine Ratio [facility] Start: 02-17-2020 End: 02-17-2020 Office Visit 02/17/2020 Office Visit Neurology Srini Medina MD [address] [place] [address] [phone] [facility] Start: 02-08-2020 Influenza vaccinatio n given Sequential Influenza Vaccine (#1) [facility] Start: 12-23-2019 Depression Remission Assessment (PHQ9) Depression Remission Assessment (PHQ9) [facility] Start: 10-21-2019 Localize cerebral seizure cptr portable eeg EEG: Ambulatory outpatient [facility] Work Phone: Start: 10-21-2019 CT Head withou t Contrast [facility] Work Phone: Start: 08-23-2019 HbA1c (Bld) [Mass fraction] A1C [facility] Start: 07-09-2019 Screening for malign ant neoplasm of cervix [facility] Start: 05-24-2019 End: 05-24-2019 Office Visit 05/24/2019 Office Visit Primary Care Verona Hilliard MD [address] [place] [address] [facility] Start: 05-06-2019 Screening for malign ant neoplasm of cervix PAP SMEAR [facility] Start: 02-07-2019 Influenza vaccination INFLUENZ A VACCINE (Season Ended) [facility] Start: 02-07-2019 Influenza vaccinatio n given SEQUENTIAL INFLUENZA VACCINE (#1) [facility] Start: 11-02-2018 HbA1c (Bld) [Mass fraction] A1C [facility] Start: 02-07-2018 Influenza vaccinatio n given SEQUENTIAL INFLUENZA VACCINE (#1) [facility] Start: 02-26-2017 Albumin DL <= 20 mg/ L (U) [Mass/Vol] URINE MICROALBUMIN [facility] Start: 2017 DTaP/Tdap/Td Vaccine s (1 - Tdap) DTaP/Tdap/Td Vaccines (1 - Tdap) [facility] Start: 01-28-2016 Screening for malign ant neoplasm of cervix [facility] Start: 11-22-2014 Pneumococcal vaccination Pneumococcal Vaccine (2 of 2 - PCV) [facility] Start: 11-22-2014 PNEUMOCOCCAL VACCINE SERIES (2 of 2 - PCV) PNEUMOCOCCAL VACCINE SERIES (2 of 2 - PCV) [facility] Start: 11-22-2014 Pneumococcal Vaccine : Pediatrics and At-Risk Adult Patients (2 of 2 - PCV) Pneumococcal Vaccine: Pediatrics and At-Risk Adult Patients (2 of 2 - PCV) [facility] Start: 2014 Hepatitis A Vaccines (1 of 2 - Risk 2-dose series) Hepatitis A Vaccines (1 of 2 - Risk 2-dose series) [facility] Start: 2014 Hepatitis B Vaccines (1 of 3 - 19+ 3-dose series) Hepatitis B Vaccines (1 of 3 - 19+ 3-dose series) [facility] Start: 2014 Pneumococcal Vaccine : Pediatrics and At-Risk Adult Patients (1 of 2 - PCV) Pneumococcal Vaccine: Pediatrics and At-Risk Adult Patients (1 of 2 - PCV) [facility] Start: 2014 Third diphtheria, tetanus and acellular pertussis (DTaP) vaccination TDAP (ADULT) [facility] Start: 2014 Zoster Vaccines (1 o f 2) Zoster Vaccines (1 of 2) [facility] Start: 2013 Annual PCP Team [employer] andres Disease Visit Annual PCP Team Chronic Disease Visit [facility] Start: 2013 Anxiety Screening Anxiety Screening [facility] Start: 2013 Depression Screening Depression Scre ening [facility] Start: 2013 Hepatitis C antibody , confirmatory test Hepatitis C Screening [facility] Start: 2013 Hepatitis C screening Hepatitis C Sc reening [facility] Start: 2013 HIV screening HIV Screening [facility] Start: 2013 Tetanus vaccination [facility] Start: 2011 COVID-19 Vaccine (1 of 2) COVID-19 Vaccine (1 of 2) [facility] Start: 2011 Screening for Chlamy clara trachomatis CHLAMYDIA SCREEN [facility] Start: 2010 HIV screening [facility] Start: 2010 Vaccination for agusto n papillomavirus [facility] Start: 06-09-2009 [facility]anus [facility] Start: 01-28-2008 HIV screening HIV SCREENING DISCUSSION [facility] Start: 01-28-2008 Varicella vaccination Varicell a Vaccines (1 of 2 - 13+ 2-dose series) [facility] Start: 2006 Vaccination for agusto n papillomavirus HPV Vaccines (1 - 2-dose series) [facility] Start: 2005 Diabetic foot examination [facility] Start: 2005 Glaucoma screening [facility] Start: 2005 Ophthalmic examinati on and evaluation Ophthalmology Exam [facility] Start: 2001 Pneumococcal Vaccine : Ped or At-Risk (1 - PCV) Pneumococcal Vaccine: Ped or At-Risk (1 - PCV) [facility] Start: 2001 Pneumococcal Vaccine : Pediatrics (0 to 5 Years) and At-Risk Patients (6 to 64 Years) (1 - PCV) Pneumococcal Vaccine: Pediatrics (0 to 5 Years) and At-Risk Patients (6 to 64 Years) (1 - PCV) [facility] Start: 2001 Pneumococcal Vaccine : Pediatrics (0 to 5 Years) and At-Risk Patients (6 to 64 Years) (1 of 2 - PCV) Pneumococcal Vaccine: Pediatrics (0 to 5 Years) and At-Risk Patients (6 to 64 Years) (1 of 2 - PCV) [facility] Start: 01-28-2000 COVID-19 Vaccine (#1) COVID-19 Vacci ne (#1) [facility] Start: 1998 History and physical examination, annual for health maintenance Wellness Visit [facility] Start: 01-28-1996 MMR Vaccines (1 of 1 - Standard series) MMR Vaccines (1 of 1 - Standard series) [facility] Start: 01-28-1996 Varicella vaccination Varicell a Vaccines (1 of 2 - 2-dose childhood series) [facility] Start: 1995 COVID-19 Vaccine (#1) COVID-19 Vacci ne (#1) [facility] Start: 1995 Depression screening using PHQ-9 (Patient Health Questionnaire 9) score DEPRESSION SCREENING (PHQ9) [facility] Start: 1995 GONORRHEA SCREEN [facility] Start: 1995 Hepatitis B Vaccines (1 of 3 - 3-dose series) Hepatitis B Vaccines (1 of 3 - 3-dose series) [facility] Start: 1995 Hepatitis C screening HEPATITI S C VIRUS SCREENING [facility] Start: 1995 Lipid panel Lipid Panel [facility] Start: 1995 Medicare Annual Wellness Visit Medicare Annual Wellness Visit (AWV) [facility] Start: 1995 Screening for Chlamy clara trachomatis Chlamydia Screening [facility] End: 04-18-2024 Bacteria identified in Urine by Culture [facility] Work Phone: Comment on above: Once (Lab) for 1 Occ urrences starting 04/18/2024 until 04/18/2024 Bacteria identified in Urine by Culture URINE CULTURE Microbiology Routine with uncertain dates in first trimester 05/07/2024 10:24 AM [facility] Bacteria identified in Urine by Culture BACTERIAL CULTURE, URINE Microbiology Routine Burning with urination 09/24/2024 9:17 AM EDT [facility] Work Phone: BACTERIAL VAGINOSIS NAAT BACTERIAL VAGINOSIS NAAT Lab Routine Vaginal discharge during in first trimester 05/07/2024 10:24 AM EST [facility] BACTERIAL VAGINOSIS NAAT BACTERIAL VAGINOSIS NAAT Lab Routine Vaginal discharge 09/24/2024 9:17 AM EDT [facility] BACTERIAL VAGINOSIS NAAT BACTERIAL VAGINOSIS NAAT Lab Routine Vaginal itching Ordered: 11/18/[address] [facility] Work Phone: Comment on above: Ordered: 11/18/2024 End: 01-03-2025 BIOPHYSICAL PROFILE US WHI BIOPHYSICAL PROFILE US I Anc Imaging Routine Supervision of high risk in third trimester ([facility]) Pre-existing type 2 diabetes mellitus in in first trimester ([facility]) Once per week for 10 Occurrences starting 10/05/2024 until 01/03/2025 [facility] Comment on above: Once per week for 10 Occurrences starting 10/05/2024 until 01/03/2025 JOSUÉ/TRICHOMONAS NAAT JOSUÉ/TRICHOMONAS NAAT Lab Routine Vaginal discharge during in first trimester 05/07/2024 10:24 AM [facility] JOSUÉ/TRICHOMONAS NAAT JOSUÉ/TRICHOMONAS NAAT Lab Routine Vaginal discharge 09/24/2024 9:17 AM EDT [facility] JOSUÉ/TRICHOMONAS NAAT JOSUÉ/TRICHOMONAS NAAT Lab Routine Vaginal itching Ordered: 11/18/2024 [facility] Comment on above: Ordered: 11/18/2024 Cast care: wet Wet prep, genita l Microbiology Routine Vaginal discharge Ordered: 08/17/2022 [facility] Work Phone: Comment on above: Ordered: 08/17/2022 End: 12-08-2020 Ceruloplasmin measurement Ceruloplasmin Lab Routine Seizure ([facility]) 1 Occurrences starting 12/08/2019 until 12/08/2020 [facility] Comment on above: 1 Occurrences starti ng 12/08/2019 until 12/08/2020 Ceruloplasmin measurement Ceruloplasmin Lab Routine Seizure ([facility]) 12/08/2019 8:42 AM EDT [facility] Chlamydia trachomati s rRNA assay Chlamydia/GC/Trichomo [place] Amplified RNA Microbiology Routine Vaginal discharge Ordered: 08/17/2022 [facility] Comment on above: Ordered: 08/17/2022 Chlamydia trachomatis+Neisseria gonorrhoeae DNA [Presence] in Unspecified specimen by SUMIT with probe detection GONORRHEA/CHLAMYDIA NAAT Lab Routine with uncertain dates in first trimester 05/07/2024 10:24 AM EST [facility] End: 01-24-2025 ECG 12 Lead [facility] Work Phone: Comment on above: Once for 1 Occurrenc es starting 01/24/2025 until 01/24/2025 End: 10-04-2025 ECG COMPLETE ECG COMPLETE ECG Routine History of pre-eclampsia 29 weeks gestation of ([facility]) Pre-existing type 2 diabetes mellitus in in third trimester ([facility]) Supervision of high risk in third trimester ([facility]) 1 Occurrences starting 10/04/2024 until 10/04/[address] [facility] Work Phone: Comment on above: 1 Occurrences starti ng 10/04/2024 until 10/04/2025 End: 06-15-2025 ECHO ECHO Cardiology Routine Pre-existing type 2 diabetes mellitus in in first trimester 1 Occurrences starting 06/15/2024 until 06/15/2025 [facility] Comment on above: 1 Occurrences starti ng 06/15/2024 until 06/15/2025 End: 04-18-2024 Extra Urine [place] Tube Extra Urine [place] Tube Lab Timed Once for 1 Occurrences starting 04/18/2024 until 04/18/2024 [facility] Work Phone: Comment on above: Once for 1 Occurrenc es starting 04/18/2024 until 04/18/2024 End: 05-21-2024 Extra Urine [place] Tube [facility] Work Phone: Comment on above: Once for 1 Occurrenc es starting 05/21/2024 until 05/21/2024 End: 01-24-2025 Extra Urine [place] Tube [facility] Work Phone: Comment on above: Once for 1 Occurrenc es starting 01/24/2025 until 01/24/2025 End: 01-02-2025 nonstress test NON-STRESS TEST Procedures Routine History of pre-eclampsia 29 weeks gestation of (HCC) Pre-existing type 2 diabetes mellitus in in third trimester ([facility]) Supervision of high risk in third trimester ([facility]) 2x per week for 16 Occurrences starting 10/04/2024 until 01/02/2025 [facility] Comment on above: 2x per week for 16 O ccurrences starting 10/04/2024 until 01/02/2025 Hemoglobin A1c/Hemoglobin.total in Blood HEMOGLOBIN A1C (POC) Lab Routine 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 Work Phone: Comment on above: Ordered: 01/20/2025 Lactate dehydrogenas e measurement [facility] Magnesium measurement [facility] [facility] gonorrhoea e nucleic acid detection Chlamydia/Gonorrhoeae Amplified RNA Microbiology Routine Vaginal discharge Ordered: 08/17/2022 [facility] Comment on above: Ordered: 08/17/2022 End: 12-08-2020 Nuclear Ab IF (S) [Titer] ILSA Lab Routine Seizure ([facility]) 1 Occurrences starting 12/08/2019 until 12/08/2020 [facility] Comment on above: 1 Occurrences starti ng 12/08/2019 until 12/08/2020 Nuclear Ab IF (S) [Titer] ILSA Lab Routine Seizure ([facility]) 12/08/2019 8:42 AM EDT [facility] End: 11-26-2024 OBSTETRIC ULTRASOUND WHI OBSTETRIC ULTRASOUND I Anc Imaging Routine Obesity affecting in first trimester, unspecified obesity type Pre-existing type 2 diabetes mellitus in in first trimester Once per month for 4 Occurrences starting 08/10/2024 until 11/26/[address] [facility] Work Phone: Comment on above: Once per month for 4 Occurrences starting 08/10/2024 until 11/26/2024 PAP TEST PAP TEST Lab Minerva Gastelum for supervision of high risk in first trimester, antepartum Screening for cervical cancer 05/07/2024 10:48 AM EST [facility] Patient Education [facility] Work Phone: Patient referral [facility] Work Phone: End: 01-24-2025 Pulse oximetry, continuous Pulse oximetry, continuous Respiratory Care STAT Continuous until discontinued starting 01/24/2025 [facility] Service Area Work Phone: Comment on above: Continuous until dis continued starting 01/24/2025 End: 12-08-2020 Reagin Ab RPR Ql (S) RPR Lab Routine Seizure ([facility]) 1 Occurrences starting 12/08/2019 until 12/08/2020 [facility] Comment on above: 1 Occurrences starti ng 12/08/2019 until 12/08/2020 Reagin Ab RPR Ql (S) RPR Lab Rou eileen Seizure ([facility]) 12/08/2019 8:42 AM EDT [facility] Trichomonas vaginali s Amplified RNA Trichomonas vaginalis Amplified RNA Microbiology Routine Vaginal discharge Ordered: 08/17/2022 [facility] Comment on above: Ordered: 08/17/2022 Urate [Mass/volume] in Serum or Plasma [facility] End: 04-18-2024 Urinalysis complete W Reflex Culture panel - Urine [facility] Area Work Phone: Comment on above: Once (Lab) for 1 Occ urrences starting 04/18/2024 until 04/18/2024 End: 05-21-2024 Urinalysis complete W Reflex Culture panel - Urine [facility] Work Phone: Comment on above: Once (Lab) for 1 Occ urrences starting 05/21/2024 until 05/21/2024 End: 01-24-2025 Urinalysis complete W Reflex Culture panel - Urine [facility] Work Phone: Comment on above: STAT (Lab) for 1 Occ urrences starting 01/24/2025 until 01/24/2025 Urine culture [facility] Urine culture [facility] URINE OB DIP B/O URINE OB DIP B/ O Lab Routine Pre-existing type 2 diabetes mellitus in in third trimester ([facility]) Supervision of high risk in third trimester ([facility]) History of pre-eclampsia H/O macrosomia in in prior , currently ([facility]) 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 Work Phone: Comment on above: Ordered: 12/06/2024 [facility] NEGATED: Highlighted row has been ruled out! Planned Goals not documented [facility] Work Phone: Immunizations Immunization Date Immunization Notes Care Provider Shirley smiley 10-04-2024 tetanus toxoid, redu vicki diphtheria toxoid, and acellular pertussis vaccine, adsorbed Piper Julian MD Work Phone: [facility] 03-27-[address] Jamari Byrne MD Work Phone: [facility] 03-27-2016 influenza virus vacc ine, unspecified formulation [facility] 11-22-2013 pneumococcal polysaccharide vaccine, 23 valent Piper Julian MD Work Phone: [facility] 03-29-2013 influenza, seasonal, injectable Piper Julian MD Work Phone: [facility] 03-29-2013 influenza virus vacc ine, unspecified formulation Mary GOODWIN Work Phone: [facility] 09-17-2012 hepatitis A vaccine, pediatric/adolescent dosage, 2 dose schedule Piper Julian MD Work Phone: [facility] 01-30-2012 hepatitis A vaccine, pediatric/adolescent dosage, 2 dose schedule Piper Julian MD Work Phone: [facility] 10-11-2010 HPV, unspecified formulation Piper Julian MD Work Phone: [facility] 10-11-2010 tetanus toxoid, redu vicki diphtheria toxoid, and acellular pertussis vaccine, adsorbed Piper Julian MD Work Phone: [facility] 11-05-2007 human papilloma viru s vaccine, quadrivalent Piper Julian MD Work Phone: [facility] 09-03-2007 HPV, unspecified formulation Piper Julian MD Work Phone: [facility] 09-03-2007 meningococcal polysaccharide vaccine (MPSV4) Piper Julian MD Work Phone: [facility] 11-27-2000 diphtheria, tetanus toxoids and acellular pertussis vaccine, unspecified formulation Piper Julian MD Work Phone: [facility] 11-27-2000 measles, mumps and rubella virus vaccine Piper Julian MD Work Phone: [facility] 06-09-1999 HPV, unspecified formulation Lloyd Quiles [facility] 03-05-1999 haemophilus influenz ae type b vaccine, conjugate unspecified formulation Piper Julian MD Work Phone: [facility] 03-05-1999 trivalent poliovirus vaccine, live, oral Piper Julian MD Work Phone: [facility] 02-15-1998 diphtheria, tetanus toxoids and acellular pertussis vaccine, unspecified formulation Piper Julian MD Work Phone: [facility] 07-26-1997 diphtheria, tetanus toxoids and pertussis vaccine Piper Julian MD Work Phone: [facility] 07-26-1997 haemophilus influenz ae type b vaccine, conjugate unspecified formulation Piper Julian MD Work Phone: [facility] 07-26-1997 trivalent poliovirus vaccine, live, oral Piper Julian MD Work Phone: [facility] 04-26-1997 diphtheria, tetanus toxoids and pertussis vaccine Piper Julian MD Work Phone: [facility] 04-26-1997 haemophilus influenz ae type b vaccine, conjugate unspecified formulation Piper Julian MD Work Phone: [facility] 04-26-1997 measles, mumps and rubella virus vaccine Piper Julian MD Work Phone: [facility] 04-26-1997 trivalent poliovirus vaccine, live, oral Piper Julian MD Work Phone: [facility] 01-14-1996 DTP-Haemophilus influenzae type b conjugate vaccine Piper Julian MD Work Phone: [facility] 01-14-1996 hepatitis B vaccine, pediatric or pediatric/adolescent dosage Piper Julian MD Work Phone: [facility] 01-14-1996 trivalent poliovirus vaccine, live, oral Piper Julian MD Work Phone: [facility] 1995 hepatitis B vaccine, adult dosage Piper Julian MD Work Phone: [facility] 1995 hepatitis B vaccine, adult dosage Piper Julian MD Work Phone: [facility] Payers Date Payer Category Payer Unknown [id number] 2024 Self-pay 2024 Medicare (Managed Care) 1.2. [id number] 2022 Dual Eligibility Medicare/Medicaid Organization [id number] 2022 Medicaid [id number] .[id number] 2021 Medicare [id number] 1.13.159.2 .[id number] 2021 Medicare [id number] 2019 Unknown 2016 Medicaid [id number] 2016 Unknown [id number] 2016 Medicaid [id number] 2016 Medicaid [facility] MEDICAID [employer] [id number] 2016-Present [id number] .[id number] 2016 Unknown [id number] 1.2.840.949978.1.13.172.2 .7.3.664630.315 1995 Unknown [id number] 2.16.840.1.299894.3.579.2 .479 1995 Unknown [id number] 2.16.840.1.276564.3.579.2 .479 1995 Unknown [id number] 2.16.840.1.692918.3.579.2 .900 1995 Unknown [id number] 2.16.840.1.128235.3.579.2 .903 1995 Unknown [id number] 2.16.840.1.147288.3.579.2 .903 1995 Unknown [id number] 2.16.840.1.379553.3.579.2 .903 1995 Unknown [id number] 2.16.840.1.955710.3.579.2 .90 1995 Unknown [id number] 2.16.840.1.152520.3.579.2 .903 1995 Unknown [id number] 2.16840.1.359992.3.579.2 .90 1995 Unknown [id number] 2.16840.1.319378.3.579.2 .903 1995 Unknown [id number] 2.16.840.1.094760.3.579.2 .174 1995 Unknown [id number] 2.16.840.1.660655.3.579.2 .903 1995 Unknown [id number] 2.16.840.1.308379.3.579.2 .651 1995 Unknown [id number] 2.16840.1.829814.3.579.2 .651 1995 Unknown [id number] 2.16.840.1.512079.3.579.2 .1245 1995 Unknown [id number] 2.16.840.1.728125.3.579.2 .1245 1995 Unknown [id number] 2.16.840.1.367699.3.579.2 .983 1995 Unknown [id number] 2.16.840.1.720903.3.579.2 .983 1995 Unknown [id number] 2.840.1.639511.3.579.2 .1243 1995 Unknown [id number] 2.840.1.638072.3.579.2 .124 1995 Unknown [id number] 2.840.1.679848.3.579.2 .124 1995 Unknown [id number] 2.840.1.346673.3.579.2 .124 1995 Unknown [id number] 2.0.1.445646.3.579.2 .1243 1995 Unknown [id number] 2.0.1.876090.3.579.2 .1242 1995 Unknown [id number] 07.25.830.1.693890.3.579.2 .1242 1995 Unknown [id number] 2.0.1.272179.3.579.2 .1242 1995 Unknown [id number] .0.1.933539.3.579.2 .12406-09-1899 Unknown [id number] Medicaid MEDICAID [facility] [id number] Effective for all dates [id number]..[id number] .7.3.768090.315 Unknown [id number] 840.1.234434.3.579.2 .462 Unknown [id number] 840.1.882824.3.579.2 .462 Unknown [id number] 840.1.351176.3.579.2 .462 Unknown [id number] 840.1.960664.3.579.2 .462 Unknown [id number] 07.25.830.1.596530.3.579.2 .462 Unknown [id number] 2.16.840.1.303785.3.579.2 .462 Unknown [id number] 2.16.840.1.883058.3.579.2 .462 Unknown [id number] 2.16.840.1.136945.3.579.2 .462 Unknown [id number] 2.16.840.1.804365.3.579.2 .462 Unknown [id number] 2.16.840.1.522830.3.579.2 .462 Social History Date Type Detail Facility Start: 09-12-2018 End: 05-03-2024 Tobacco smoking status VTIS Current every day smoker [facility] Start: 12-24-2009 End: 06-03-2016 History of tobacco use Cigarette Smoker [facility] Start: 09-12-2018 End: 03-09-2025 Cigarettes smoked current (pack per day) - Reported YR.MRKT HIGH MOBILITY Comment on above: 06/10 PPD; Start: 1995 [facility] Start: 02-10-2019 End: 08-17-2022 Alcohol intake Ex-drinker (finding) [facility] Start: 06-23-2016 Alcohol [facility] Start: 12-08-2019 End: 03-09-2025 Tobacco use and exposure Never used [facility] Start: 08-07-2022 End: 09-06-2024 Exposure to SARS-CoV-2 (event) Not sure [facility] Tobacco smoking consumption unknown [facility] Start: 12-13-2022 End: 03-09-2025 Tobacco use panel [facility] Work Phone: Start: 1995 [facility] Start: 03-12-2017 Gender identity Identifies as female gender (finding) [facility] Work Phone: Start: 09-20-2022 Sexual orientation Bisexual (finding ) [facility] Work Phone: Start: 08-19-2023 End: 02-19-2025 Alcohol intake Current non-drinker of alcohol (finding) [facility] Start: 12-11-2016 End: 05-04-2022 National Score (1-100), lower number is lower risk 80 [facility] Start: 04-18-2024 End: 03-09-2025 Alcoholic beverage intake Lifetime non-drinker (finding) [facility] Work Phone: The thought of harming myself has occurred to me Never [facility] Start: 05-03-2024 Education 15 [facility] Start: 03-27-2024 [facility] Start: 05-28-2024 Sexual orientation Heterosexual (fin zain) [facility] Start: 09-06-2024 Tobacco Comment Smokes 2 cigar ettes a day [facility] Work Phone: Start: 03-12-2017 End: 09-24-2024 Sex Female (finding) [facility] Start: 03-09-2025 Tobacco smoking status NHIS Ex-smoker [facility] Start: 12-24-2009 History of tobacco use Current smoker [facility] Work Phone: NEGATED: [facility] Work Phone: Medical Equipment Procedure Code Equipment Code Equipment Origin al Text Equipment Identifier Dates [id number] Start: 05-05-2018 End: 05-04-2024 Inject 1 each as directed 2 (two) times a day as needed . [id number] Start: 05-05-2018 by Miscellaneous route daily as needed . [id number] Start: 02-22-2019 Inject 1 each as directed daily as needed . [id number] Start: 02-22-2019 Accu-Chek Soraya Plus In Vitro [...] 1 strip 1 (one) time each day. [id number] Start: 11-13-2021 1 (one) time each day. [id number] Inject nightly [id number] Start: 12-13-2022 End: 12-13-2023 Use to inject nightly [id number] Sta rt: 12-20-2022 End: 12-25-2023 Use with lantus pen 10 units at bedtime subcutaneous [id number] Start: 03-17-2023 Use to inject 4 times per day [id number] Start: 12-25-2023 End: 12-24-2024 4 times/day [id number] Start: 05-03-2024 End: 01-13-2025 Use with blood g lucose test four times a day. [id number] Start: 06-14-2024 End: 09-27-2024 Use with blood g lucose test four times a day. [id number] Start: 06-14-2024 End: 09-24-2024 Use as instructe d - TEST BLOOD SUGARS 4 TIMES DAILY [id number] Start: 08-03-2024 Use with blood g lucose test four times a day. Insulin Dep? Yes [id number] Start: 08-03-2024 End: 08-10-2024 Use with blood g lucose test four times a day. Insulin Dep? Yes [id number] Start: 08-10-2024 4 TIMES/DAY [id number] Start: 01-13-2025 Goals Date Patient Goal Desired Activity /State Personal health goal Functional Status Date Assessment Result Facility 03-09-2025 Patient Health Questionnaire 2 item (PHQ-2) [Reported] [facility] Work Phone: 03-09-2025 Functional status 128/80 025 8:17 AM EDT Tiffanie Harvey MA 128/80 [facility] Work Phone: 03-09-2025 Vital signs 78 03/09/2025 8: 17 AM EDT Tiffanie Harvey MA [facility] Work Phone: 01-24-2025 Stephens - suicide severity rating scale screener - recent [C-SSRS] [facility] Work Phone: 12-21-2016 Are you deaf, or do you have serious difficulty hearing No 12/21/2016 10:45 AM Krys Du RN No [facility] 12-21-2016 Are you blind, or do you have serious difficulty seeing, even when wearing glasses No 12/21/2016 10:45 AM Krys Du, BETSY No [facility] 12-21-2016 Do you have serious difficulty walking or climbing stairs No 12/21/2016 10:45 AM Krys Du, BETSY No [facility] 12-21-2016 Do you have difficul ty dressing or bathing No 12/21/2016 10:45 AM Krys Du, BETSY [facility] 12-21-2016 Because of a physica l, mental, or emotional condition, do you have difficulty doing errands alone such as visiting a physician's office or shopping No 12/21/2016 10:45 AM Krys Du, BETSY No [facility] Work Phone: NEGATED: Highlighted row Functional performance Functional status health issues are not documented Disease [place] [address] [employer] Work Phone: Mental Status Date Assessment Result Facility 12-16-2024 Cognitive function Level Of Cons ciousness Awake;Alert [facility] Work Phone: 12-21-2016 Because of a physical, mental, or emotional condition, do you have serious difficulty concentrating, remembering, or making decisions No 12/21/2016 10:45 AM Krys Du, BETSY No [facility] NEGATED: Highlighted row Cognitive function [Interpretation] Cognitive status health issues are not documented Disease [place] [address] [employer] Work Phone: Clinical Notes 01-01-2017 to 03-09-2025 Jamari Byrne MD - 03/09/2025 8:00 AM EDTPatient InstructionsTara Hindser, TRIM CARPENTER - 02/21/2025 6:10 PM EDTLeonie Galarza, ASSISTANT WAREHOUSE MANAGER-BUSINESS OBJECTS DEVELOPER - 02/21/2025 6:10 PM EDTPatient InstructionsPatient Instructions [...] Depressed and irritiated and counseling [place] Wanting start CBT EMDR EKG sinus Tachycardia [...] 03/09/25 8:57 AM documented in this encounter [facility] Work Phone: 03-09-2025 Instructions Jamari Byrne MD - 03/09/2025 8:00 AM EDT Current weight: 81.2 kg (179 lb) Weight change since last visit (-) denotes wt loss -7.4 lbs Weight loss needed to achieve BMI 25: 42.6 Lbs Weight loss needed to achieve BMI 30: 15.3 Lbs documented in this encounter [facility] Work Phone: 02-21-2025 History of Presen t illness Narrative Main historian: Patient Patient presents with Cough Associated symptoms: N/V, cough- productive at times, congestion Onset: 5 days Self treatments: steam, tylenol, Alleviating factors: n/a Aggravating factors: n/a Exposures: none known HPI Melissa Crowe Chavez 1995 presents to the [facility] with Chief Complaint Patient presents [...] Reported on 02/21/2025) glucose blood test strips ([employer]) Strip strip 4 strips by Instructed [...] Result Value Ref Range SARS-COV-2 Rapid Antigen 388111 NOT DETECTED NARRATIVE -1 This test was [...] AND CURETTAGE misscarriage documented in this encounter [facility] 02-19-2025 Instructions Ángela Norris APRN.CNP - [...] you feel nauseous. documented in this encounter [facility] 02-19-2025 Note [facility] 02-19-2025 History of Presen t illness [...] macrosomia in infant in prior , currently ([facility]) 05/07/2024 Herpes simplex type 2 (HSV-2) infection affecting , antepartum, unspecified trimester ([facility]) 04/19/2024 Hyperlipidemia LGA (large for gestational age) ([facility]) 12/23/2016 12/23/16 - >95% Polyhydramnios ([facility]) 01/01/2017 Pre-existing type 2 diabetes mellitus in in first trimester ([facility]) 06/15/2024 First trimester Hgb A1c 10.5%, now follows with Dr. Guillermo Recurrent UTI Type 2 diabetes mellitus ([facility]) PAST SURGICAL HISTORY Procedure Laterality Date CHOLECYSTECTOMY [...] by mouth two times a day. Insulin [place], Disposable, (BD ULTRAFINE III MINI PEN) 31 gauge x 3/16 4 TIMES/DAY lancets ([employer] DELICA PLUS LANCET) 30 gauge Use with [...] Discussed expected course of illness Ángela Norris APRN.BUSINESS OBJECTS DEVELOPER and Recording using [employer] software for draft documentation of the visit was discussed with the patient/authorized housing management representative; all questions welcomed and answered. Patient/authorized housing management representative agreed to proceed Disposition The patient was discharged. Procedures [1] Social History Tobacco Use Smoking status: Every Day Current packs/day: 0.50 Average packs/day: 0.5 packs/day for 14.0 years (7.0 ttl pk-yrs) Types: Cigarettes Smokeless tobacco: Never Vaping Use Vaping status: Never Used Substance Use Topics Alcohol use: No Drug use: No documented in this encounter [facility] 02-01-2025 Telephone encounter Note Rx sent KB [facility] 02-01-2025 Miscellaneous Notes Rx sent KB Per last office notes patient instructions are as below: NPH 20 units at bedtime Humalog 8 units prior to meals (+5 units with higher carb meals) New prescription need to be sent to the pharmacy [facility] and explained the situation. They said the pharmacy has to give them a call. Patient is calling asking to please send her insulin to [facility]. She has been without and has not eaten. Call her as soon as it is sent at [phone]. Patient has refills, but the problem is [...] Byrne's office (no relation to patient) phone: [phone]. Spoke to patient. She stated she left [...] something Dr. Guillermo can do? Please use: [facility] [address] [place] [phone] [facility] [phone] [545] she feels they can override things to get it done if needed.. Also: Pt wanted to know about recommended refrigeration time-frames for insulin Call back # [phone] vmx/mycharts both okay Thanks documented in this encounter [facility] 02-01-2025 Telephone encounter Note Per last office notes patient instructions are as below: NPH 20 units at bedtime Humalog 8 units prior to meals (+5 units with higher carb meals) New prescription need to be sent to the pharmacy [facility] 02-01-2025 Telephone encounter Note [employer] insurance and explained the situation. They said the pharmacy has to give them a call. [facility] 02-01-2025 Telephone encounter Note Patient is calling asking to please send her insulin to [facility] in [facility]. She has been without and has not eaten. Call her as soon as it is sent at [phone]. [facility] 02-01-2025 Telephone encounter Note Patient has refills, but the problem is the insurance will not cover, because it is early to fill.Checked with her pharmacist. He advised patient call the insurance if they can override it. [facility] 02-01-2025 Telephone encounter Note FYI: Dr. Byrne's office (patient's PCP) called to advise that patient is also asking their office to prescribe her insulin, they declined. Aquiles @ Dr. Chavez's office (no relation to patient) phone: [phone]. [facility] Work Phone: 02-01-2025 Telephone encounter Note Spoke to patient. She stated she left her insulin in the car for days. She spoke to the pharmacy. They will fill her prescriptions. We will call her back with 's advise. [facility] 02-01-2025 Telephone encounter Note Pt thinks both [...] something Dr. Guillermo can do? Please use: [facility] [address] [place] [phone] [facility] [phone] 1812 [545] she feels they can override things to get it done if needed.. Also: Pt wanted to know about recommended refrigeration time-frames for insulin Call back # [phone] vmx/mycharts both okay Thanks [facility] 01-31-2025 History of Presen t illness Narrative Subjective Patient ID: Melissa Drummond is a 30 y.o. female who presents for Diabetes (Lab Results/ Component Value Date / HGBA1C 7.1 (A) 01/20/2025 ), Exercise-induced asthma, and ER Follow-up (01/24/25 [facility] ; chest pain; EKG done/01/29/25 [facility] [place]; acute sinusitis, URI). Diabetes She has type [...] 180-200 mg/dl. She does not see a senior landscape architect.Eye exam is current. No data recorded A1c [...] under the skin once daily at bedtime. [facility] prescribes - insulin lispro 100 unit/mL injection; Inject 8 Units under the skin 3 times daily (morning, midday, late afternoon). With meals; plus 5 units for increased carbs Anxiety and depression We watched a video on proper spacer use Jamari Byrne MD 01/31/25 5:05 PM documented in this encounter [facility] Work Phone: 01-28-2025 Note [facility] 01-28-2025 History of Presen t illness Narrative [facility] Subjective Melissa Byrne is a 30 year old female. Patient presents with: Nausea & Vomiting: X 1 week, emesis 3-4 times a day, Feels like BP and HR are increased HPI Nausea and Emesis: - Onset since last . - Emesis occurring from gauge and weigh machine adjuster to late evening. - Able to keep [...] kg/m PAST MEDICAL HISTORY Diagnosis Date Asthma ([facility]) Bipolar H/O macrosomia in in prior , currently ([facility]) 05/07/2024 Herpes simplex type 2 (HSV-2) infection affecting , antepartum, unspecified trimester ([facility]) 04/19/2024 Hyperlipidemia LGA (large for gestational age) ([facility]) 12/23/2016 12/23/16 - >95% Polyhydramnios ([facility]) 01/01/2017 Pre-existing type 2 diabetes mellitus in in first trimester ([facility]) 06/15/2024 First trimester Hgb A1c 10.5%, now follows with Dr. Guillermo Recurrent UTI Type 2 diabetes mellitus ([facility]) PAST SURGICAL HISTORY Procedure Laterality Date CHOLECYSTECTOMY D&C, DIAG AND/OR THERAPEUTIC 2017 ALLERGIES Aluminum-Magnesium Hydroxide, Aripiprazole, Quetiapine, Metoclopramide, Promethazine, Zofran [Ondansetron], and Zoloft [Sertraline] MEDICATIONS acyclovir (ZOVIRAX) 400 mg tablet Take 1 tablet by mouth two times a day. Insulin [place], Disposable, (BD ULTRAFINE III MINI PEN) 31 gauge x 3/16 4 TIMES/DAY insulin NPH (HUMULIN N NPH INSULIN KWIKPEN) 100 unit/mL (3 mL) injection pen 90 units at bedtime lancets (AframeTOUCH DELICA PLUS LANCET) 30 gauge Use with blood glucose test four times a day. Insulin Dep? Yes insulin lispro (HUMALOG KWIKPEN INSULIN) 100 unit/mL 23 -23 - 26 units prior to each meal respectively + scale (upto 100 units/day) blood sugar diagnostic (PharmaSecureUCH VERIO TEST STRIPS) test strip Use as instructed - TEST BLOOD SUGARS 4 TIMES DAILY Blood-Glucose Meter (Elite Form VERIO FLEX METER) Use to check blood [...] others at this time. and Recording using [employer] software for draft documentation of the visit was discussed with the patient/authorized housing management representative; all questions welcomed and answered. Patient/authorized housing management representative agreed to proceed Disposition The patient [...] Drug use: No documented in this encounter [facility] 2025 Telephone encounter Note Noted, thank you [facility] 2025 Miscellaneous Notes Noted, thank you Patient called [facility] registration to cancel her procedure scheduled on 01/28/25 due to illness. Patient will contact office when ready to reschedule. documented in this encounter [facility] 2025 Telephone encounter Note Patient called [facility] registration to cancel her procedure scheduled on 01/28/25 due to illness. Patient will contact office when ready to reschedule. [facility] 01-24-2025 Physician Emergency department Note Chest pain. [...] nausea and vomiting and was seen at [place] [facility] twice because of the symptoms. Patient admits to smoking 1/2 pack/day. States her father had a AK age 50. She admits to history of bipolar affective disorder, asthma, type 2 diabetes, depression, anxiety. Patient denies ever having a cardiac stress test or heart cath. History provided by: Patient central supply clerk used: No Physical Exam Vitals and nursing note reviewed. Constitutional: General: She is awake. Appearance: Normal appearance. She is overweight. HENT: Head: Normocephalic and atraumatic. Jaw: There is normal jaw occlusion. Right Ear: Hearing and external ear normal. Left Ear: Hearing and external ear normal. Nose: Nose normal. No congestion or rhinorrhea. Mouth/Throat: Lips: [place]. Mouth: Mucous membranes are moist. Pharynx: Oropharynx [...] Urine Colorless (*) Appearance, Urine Clear Specific [place], Urine 1.004 (*) pH, Urine 6.5 Protein, [...] Total HCG measurement is performed using the Tengaged Access Immunoassay which detects intact HCG and free beta HCG subunit. This test is not indicated for use as a tumor marker. HCG testing is performed using a different test methodology at [facility] than other [facility]. Direct result comparison should only be made within the same method. D-DIMER, VTE EXCLUSION - Normal D-Dimer, Quantitative VTE Exclusion 456 Narrative: The VTE Exclusion D-Dimer assay is reported in ng/mL Fibrinogen Equivalent Units (FEU). Per ton container shipper's instructions for use, a value of less than 500 ng/mL (FEU) may help to exclude DVT or PE in outpatients when the assay is used with a clinical pretest probability assessment.([facility] must utilize and document eCalc 'Wells Score [...] performed using a different testing methodology at [facility] than at other [facility]. Direct result comparisons should only [...] performed using a different testing methodology at [facility] than at other [facility]. Direct result comparisons should only be made within the same method. TROPONIN SERIES- (INITIAL, 1 HR) Narrative: The following orders were created for panel order Troponin I Series, High Sensitivity (0, 1 HR). Procedure Abnormality Status --------- ------ Troponin I, High Sensiti...[[id number]] Normal Final result Troponin, High Sensitivi...[[id number]] Normal Final result Please view results for [...] Abnormality Status --------- ------ Urinalysis with Reflex C...[[id number]] Abnormal Final result Extra Urine Bolton Tube[[id number]] In process Please view results for these tests on the individual orders. EXTRA URINE BOLTON TUBE XR chest 1 view Final Result No acute pathologic findings are identified. There is no interval change when compared to the previous examination. MACRO: none Signed by: Milly Juraez 01/24/2025 2:56 PM Dictation workstation: [id number] Procedures Medical Decision Making Patient was seen [...] The heart rate is 102 bpm. The WV interval is 142 ms. The QRS duration is 84 ms. The QTc is 492 ms. [place] is 60 degrees. Diagnoses as of 01/24/251710 Acute chest pain Ty Shannon DO 01/24/251710 [facility] Work Phone: 01-24-2025 Emergency department [...] nausea and vomiting and was seen at [place] [facility] twice because of the symptoms. Patient admits to smoking 1/2 pack/day. States her father had a AK age 50. She admits to history of bipolar affective disorder, asthma, type 2 diabetes, depression, anxiety. Patient denies ever having a cardiac stress test or heart cath. History provided by: Patient central supply clerk used: No Physical Exam Vitals and nursing note reviewed. Constitutional: General: She is awake. Appearance: Normal appearance. She is overweight. HENT: Head: Normocephalic and atraumatic. Jaw: There is normal jaw occlusion. Right Ear: Hearing and external ear normal. Left Ear: Hearing and external ear normal. Nose: Nose normal. No congestion or rhinorrhea. Mouth/Throat: Lips: [place]. Mouth: Mucous membranes are moist. Pharynx: Oropharynx [...] Urine Colorless (*) Appearance, Urine Clear Specific [place], Urine 1.004 (*) pH, Urine 6.5 Protein, [...] HCG measurement is performed using the [employer] Access Immunoassay which detects intact HCG and free beta HCG subunit. This test is not indicated for use as a tumor marker. HCG testing is performed using a different test methodology at [facility] than other [facility]. Direct result comparison should only be made within the same method. D-DIMER, VTE EXCLUSION - Normal D-Dimer, Quantitative VTE Exclusion 456 Narrative: The VTE Exclusion D-Dimer assay is reported in ng/mL Fibrinogen Equivalent Units (FEU). Per ton container shipper's instructions for use, a value of less [...] performed using a different testing methodology at [facility] than at other [facility]. Direct result comparisons should only [...] performed using a different testing methodology at [facility] than at other [facility]. Direct result comparisons should only be made within the same method. TROPONIN SERIES- (INITIAL, 1 HR) Narrative: The following orders were created for panel order Troponin I Series, High Sensitivity (0, 1 HR). Procedure Abnormality Status --------- ------ Troponin I, High Sensiti...[[id number]] Normal Final result Troponin, High Sensitivi...[[id number]] Normal Final result Please view results for [...] Abnormality Status --------- ------ Urinalysis with Reflex C...[[id number]] Abnormal Final result Extra Urine Bolton Tube[[id number]] In process Please view results for these tests on the individual orders. EXTRA URINE BOLTON TUBE XR chest 1 view Final Result No acute pathologic findings are identified. There is no interval change when compared to the previous examination. MACRO: none Signed by: Milly Juarez 01/24/2025 2:56 PM Dictation workstation: [id number] Procedures Medical Decision Making Patient was seen [...] The heart rate is 102 bpm. The WV interval is 142 ms. The QRS duration is 84 ms. The QTc is 492 ms. [place] is 60 degrees. Diagnoses as of 01/24/251710 Acute chest pain Ty Shannno DO 01/24/251710 documented in this encounter [facility] Work Phone: 01-23-2025 Hospital Discharg e instructions Additional Instructions Plenty of fluids and rest. Zofran as needed for nausea you may swallow it or let dissolve on your tongue. Watch your blood sugars closely tonight they were elevated at 229. Follow-up with your doctor as needed. [facility] Work Phone: 01-20-2025 History of Presen [...] during that - had macrosomia, delivered in [place]. She was initially diagnosed with type 2 [...] weight. PAST MEDICAL HISTORY Diagnosis Date Asthma ([facility]) Bipolar H/O macrosomia in infant in prior , currently ([facility]) 05/07/2024 Herpes simplex type 2 (HSV-2) infection affecting , antepartum, unspecified trimester ([facility]) 04/19/2024 Hyperlipidemia LGA (large for gestational age) ([facility]) 12/23/2016 12/23/16 - >95% Polyhydramnios ([facility]) 01/01/2017 Pre-existing type 2 diabetes mellitus in in first trimester ([facility]) 06/15/2024 First trimester Hgb A1c 10.5%, now follows with Dr. Guillermo Recurrent UTI Type 2 diabetes mellitus ([facility]) PAST SURGICAL HISTORY Procedure Laterality Date CHOLECYSTECTOMY [...] times a day. 60 tablet 3 Insulin [place], Disposable, (BD ULTRAFINE III MINI PEN) 31 gauge x 3/16 4 TIMES/DAY 200 each 3 insulin NPH (HUMULIN N NPH INSULIN KWIKPEN) 100 unit/mL (3 mL) injection pen 90 units at bedtime 45 mL 11 lancets (PharmaSecureUCH DELICA PLUS LANCET) 30 gauge Use with blood glucose test four times a day. Insulin Dep? Yes 100 Each 11 insulin lispro (HUMALOG KWIKPEN INSULIN) 100 unit/mL 23 -23 - 26 units prior to each meal respectively + scale (upto 100 units/day) 45 mL 11 blood sugar diagnostic (PharmaSecureUCH VERIO TEST STRIPS) test strip Use as instructed - TEST BLOOD SUGARS 4 TIMES DAILY 150 Each 11 Blood-Glucose Meter (Elite Form VERIO FLEX METER) Use to check blood [...] which included preparing to see the patient, [id number] patient care, completing clinical documentation, obtaining and/or reviewing separately obtained history, performing a medically appropriate examination, counseling and educating the patient/family/caregiver, and ordering medications, tests, or procedures. Kesly Guillermo DO [1] Social History Tobacco Use Smoking status: Every Day Current packs/day: 0.50 Average packs/day: 0.5 packs/day for 14.0 years (7.0 ttl pk-yrs) Types: Cigarettes Smokeless tobacco: Never Vaping Use Vaping status: Never Used Substance Use Topics Alcohol use: No Drug use: No documented in this encounter [facility] 01-20-2025 Note [facility] 01-20-2025 Instructions Kelsy Guillermo DO - [...] blood work prior documented in this encounter [facility] 01-19-2025 History and physical note Pre-Op History and Physical HPI: The patient is a 29 year old female presenting for pre-operative visit. She is scheduled for laparoscopic bilateral salpingectomy , for desires sterilization on 01/28/25. Procedure discussed along with risks, benefits and complications. Other alternatives discussed for management. Consent form signed? Yes. PAST MEDICAL HISTORY Diagnosis Date Asthma ([facility]) Bipolar H/O macrosomia in infant in prior , currently ([facility]) 05/07/2024 Herpes simplex type 2 (HSV-2) infection affecting , antepartum, unspecified trimester ([facility]) 04/19/2024 Hyperlipidemia LGA (large for gestational age) ([facility]) 12/23/2016 12/23/16 - >95% Polyhydramnios ([facility]) 01/01/2017 Pre-existing type 2 diabetes mellitus in in first trimester ([facility]) 06/15/2024 First trimester Hgb A1c 10.5%, now follows with Dr. Guillermo Recurrent UTI Type 2 diabetes mellitus ([facility]) PAST SURGICAL HISTORY Procedure Laterality Date CHOLECYSTECTOMY [...] times a day. 60 tablet 3 Insulin [place], Disposable, (BD ULTRAFINE III MINI PEN) 31 gauge x 3/16 4 TIMES/DAY 200 each 3 lancets (AframeTOUCH DELICA PLUS LANCET) 30 gauge Use with [...] Topics Alcohol use: No Drug use: No [facility] 01-19-2025 History and physical note Pre-Op History and Physical HPI: The patient is a 29 year old female presenting for pre-operative visit. She is scheduled for laparoscopic bilateral salpingectomy , for desires sterilization on 01/28/25. Procedure discussed along with risks, benefits and complications. Other alternatives discussed for management. Consent form signed? Yes. PAST MEDICAL HISTORY Diagnosis Date Asthma ([facility]) Bipolar H/O macrosomia in in prior , currently ([facility]) 05/07/2024 Herpes simplex type 2 (HSV-2) infection affecting , antepartum, unspecified trimester ([facility]) 04/19/2024 Hyperlipidemia LGA (large for gestational age) infant ([facility]) 12/23/2016 12/23/16 - >95% Polyhydramnios ([facility]) 01/01/2017 Pre-existing type 2 diabetes mellitus in in first trimester ([facility]) 06/15/2024 First trimester Hgb A1c 10.5%, now follows with Dr. Guillermo Recurrent UTI Type 2 diabetes mellitus ([facility]) PAST SURGICAL HISTORY Procedure Laterality Date CHOLECYSTECTOMY [...] times a day. 60 tablet 3 Insulin [place], Disposable, (BD ULTRAFINE III MINI PEN) 31 [...] Drug use: No documented in this encounter [facility] 01-19-2025 Note [facility] 01-19-2025 History of Presen t illness Narrative VISIT Melissa Byrne is a 29 year old year old here for visit. Delivery Summary: 12/07/24 F- Nallely ROS/ Recovery: Feeding: Bottle feeding problems: None Menses since delivery: none Menstrual pattern prior to : Regular periods [place] since delivery: Resumed Depression: denies symptoms of [...] harming myself has occurred to me. Never [place] Depression Scale Total 16 Feeling nervous, anxious, [...] N/A PAST MEDICAL HISTORY Diagnosis Date Asthma ([facility]) Bipolar H/O macrosomia in infant in prior , currently ([facility]) 05/07/2024 Herpes simplex type 2 (HSV-2) infection affecting , antepartum, unspecified trimester ([facility]) 04/19/2024 Hyperlipidemia LGA (large for gestational age) ([facility]) 12/23/2016 12/23/16 - >95% Polyhydramnios ([facility]) 01/01/2017 Pre-existing type 2 diabetes mellitus in in first trimester ([facility]) 06/15/2024 First trimester Hgb A1c 10.5%, now [...] discussed with the Patient or Patient's Authorized Third Steel Pourer. As applicable, any other physician, advance practice provider, medical student, or other health professional student that will be observing or involved in the sensitive examination for educational or training purposes was discussed with the Patient or Authorized Third Steel Pourer. The Patient or Authorized Third Steel Pourer has agreed to proceed with the sensitive [...] external genitalia normal, normal Bartholin's glands, urethra, [place]'s glands, no vulvar lesions, no cervical lesions, [...] Whit Patel MD documented in this encounter [facility] 12-21-2024 Note [facility] 12-21-2024 History of Presen t illness [...] in parent's room, does not feel rested [place] since delivery: Not resumed Emotional support: Yes [...] William Gramajo MD documented in this encounter [facility] 12-16-2024 History and physi vicenta note [facility] 12-16-2024 Telephone encount er Note Patient notified and instructions given to go to L&D for evaluation. [facility] 12-16-2024 Miscellaneous Notes Formattin g of [...] No openings tomorrow. documented in this encounter [facility] 12-16-2024 Telephone encount er Note to L&D for eval for preeclampsia. Piper Julian MD [facility] 12-16-2024 Telephone encount er Note Patient [...] d/t headache & swelling. No openings tomorrow. [facility] 12-15-2024 Telephone encount er Note Reviewed [...] need anything in the interim- thanks! KB [facility] 12-15-2024 Miscellaneous Notes Formattin g of [...] interim- thanks! KB documented in this encounter [facility] 12-09-2024 Progress note Note Date/Time December 09, 2024 8:46a [facility] Medical Records Department [address] [place] [address] Progress Note - OBGYN 12/09/24 0845 MR#: [id number] Acct: [id number] Name: MELISSA BYRNE Rep #:[id number] : 1995 29 From: Krys Kulkarni MD PCP: Dr. Jamari Byrne MD Status:ADM IN Location: [id number] Subjective Subjective Doing well. Ambulating and voiding [...] Cosigner Signature (if applicable): CC: ~ Signed [facility] Work Phone: 1(892) 390-257107-03-2025 [facility] Medical Records Department [address] [place] [address] Discharge Summary 12/09/24 0846 MR#: [id number] Acct: [id number] Name: MELISSA BYRNE Rep #: [id number] : 1995 29 From: Krys Kulkarni MD PCP: Dr. Jamari Byrne MD Status:DIS IN [id number] Providers Date of Admission: 12/07/24 Date of [...] 1-2 and 6 weeks or as needed. [phone] Meaningful Use Info Meaningful Use Meaningful Use [...] Jamari Byrne MD; Dr. Krys Kulkarni MD [facility] Progress note [facility] Medical Records Department [address] [place] [address] Progress Note - OBGYN 12/09/24 0845 MR#: [id number] Acct: [id number] Name: MELISSA BYRNE Rep #:[id number] : 1995 29 From: Krys Kulkarni MD PCP: Dr. Jamari Byrne MD Status:ADM IN Location: [place] [address] Subjective Subjective Doing well. Ambulating and voiding [...] Cosigner Signature (if applicable): CC: ~ Signed [facility]07-02-2025 Telephone encounter Note* Telephone Encounter - Piper Julian MD - 12/08/2024 6:26 PM EDT nevermind, patient had plan in a [employer] message, I didn't see it initially. Thanks. RLR [facility]07-02-2025 Miscellaneous Notes* Telephone Encounter - Piper Julian MD - 12/08/2024 6:26 PM EDT nevermind, patient had plan in a [employer] message, I didn't see it initially. Thanks. RLR * Telephone Encounter - Piper Julian MD - 12/08/2024 5:55 PM EDT Hoda delivered at [facility] on 12/07/24. We have her on insulin and would like to know if we should keep her on half her dose until follow up in January? Thanks! Piper Julian MD [facility] Telephone encounter Note * Telephone Encounter - Piper Julian MD - 12/08/2024 5:55 PM EDT Hoda delivered at [facility] on 12/07/24. We have her on insulin and would like to know if we should keep her on half her dose until follow up in January? Thanks! Piper Julian MD [facility]07-02-2025 Progress note Author Mariajose Liya [facility] Note Date/Time December 08, 2024 12:30 pm [facility] Medical Records Department [address] [place] [address] Progress Note - OBGYN 12/08/24 0837 MR#: [id number] Acct: [id number] Name: MELISSA BYRNE Rep #:[id number] : 1995 29 From: Mariajose Nickerson CNGardenia PCP: Dr. Jamari Byrne MD Status:ADM IN Location: [id number] Subjective Subjective Patient seen at bedside. Denies [...] % (Auto) 70.0, Lymph % (Auto) 22.0, Gordon% (Auto) 6.0, Eos % (Auto) 1.0, Baso [...] Cosigner Signature (if applicable): CC: ~ Signed [facility] Work Phone: 1(160) 810-164507-02-2025 NoteHNO ID: [id number] Author: KRYS MURCIA RN Service: ? Author Type: Registered Nurse Type: Progress Notes Filed: 12/08/2024 13:54 Note Text: Patient delivered via at [facility] on 12/07/24 per William Gramajo MD . See OB Outcome note. [facility] History of Present illness Narrative* Krys Murcia RN - 12/08/2024 1:52 PM EDT Patient delivered via at [facility] on 12/07/24 per William Gramajo MD . See OB Outcome note. Krys Murcia RN [facility] Progress note [facility] Medical Records Department [address] [place] [address] Progress Note - OBGYN 12/08/24 0837 MR#: [id number] Acct: [id number] Name: MELISSA BYRNE Rep #:[id number] : 1995 29 From: Mariajose Nickerson CNM PCP: Dr. Jamari Byrne MD Status:ADM IN Location: VM280-5 Subjective Subjective Patient seen at bedside. Denies [...] % (Auto) 70.0, Lymph % (Auto) 22.0, Gordon% (Auto) 6.0, Eos % (Auto) 1.0, Baso [...] Cosigner Signature (if applicable): CC: ~ Signed [facility]07-01-2025 Procedure note [facility] Medical Records Department [address] [place] [address] OB Vaginal Delivery 12/07/242023 MR#: [id number] Acct: [id number] Name: MELISSA BYRNE Rep #:[id number] : 1995 29 From: William Gramajo MD PCP: Dr. Jamari Byrne MD Status:ADM IN Location: MG886-9 Maternal Data Information ADA Calculator Estimated Delivery [...] (5 minute): 10 Delayed Cord Clamping: Yes [place] hand splitter: No Post Vaginal Deli Medications given after delivery: IV Pitocin Episiotomy Description: None Laceration: None Complication Complications: No 12/07/242025 Cosigner Signature (if applicable): CC: Dr. Jamari Byrne MD; Dr. William Gramajo MD~ Signed [facility]07-01-2025 History and physical note Author William Gramajo [facility] Note Date/Time December 07, 2024 1:42p [facility] Medical Records Department [address] [place] [address] H&P Exam - AIR TWISTER WINDER 12/07/24 1223 MR#: [id number] Acct: [id number] Name: MELISSA BYRNE Rep #:[id number] : 1995 29 From: William Gramajo MD PCP: Dr. Jamari Byrne MD Status:ADM IN Location: RW303-4 HPI - General General Date of Admission: 12/07/24 HPI Narrative MELISSA BYRNE, is a 29 F who presents with contractions and was scheduled forinduction today. Maternal Data Information ADA Calculator Estimated Delivery Date Method Current WG Current Estimate 12/18/24 Manual 38w 3d PFSH [facility] Medical History (Updated 12/07/24 @ 13:40 by [...] Byrne MD; Dr. William Gramajo MD~ Signed [facility] Work Phone: 1(838) 327-226807-01-2025 History and physical note [facility] Medical Records Department [address] [place] [address] H&P Exam - AIR TWISTER WINDER 12/07/24 1223 MR#: [id number] Acct: [id number] Name: CHAVEZMELISSA MOODY Rep #:[id number] : 1995 29 From: William Gramajo MD PCP: Dr. Jamari Byrne MD Status:ADM IN Location: RU157-1 HPI - General General Date of Admission: 12/07/24 HPI Narrative MELISSA BYRNE, is a 29 F who presents with contractions and was scheduled forinduction today. Maternal Data Information ADA Calculator Estimated Delivery Date Method Current WG Current Estimate 12/18/24 Manual 38w 3d PFSH [facility] Medical History (Updated 12/07/24 @ 13:40 by [...] Byrne MD; Dr. William Gramajo MD~ Signed [facility]06-30-2025 Note Indication Evaluation of well-being Maternal [...] RDMS, RVT Read By: Pooja Latham M.D.MATERNAL [id number] Progress note* Quick Notes - Ronaldo Rubio MD - 12/06/2024 10:22 AM EDT Ab1 at 38w2ds with improved controlled type 2 diabetes using insulin BPP today 01/14 with VI 10 cm . Reports occ [facility] [place] ctrx Induction scheduled for tomorrow Patient reports good FM Denies bleeding or LOF 2+ dtr. Ronaldo Rubio MD [facility] Work Phone: [phone]0-0825 Miscellaneous Notes* Quick Notes - Ronaldo Rubio MD - 12/06/2024 10:22 AM EDT Ab1 at 38w2ds with improved controlled type 2 diabetes using insulin BPP today 01/14 with VI 10 cm . Reports occ [facility] Induction scheduled for tomorrow Patient reports good FM Denies bleeding or LOF 2+ dtr. Ronaldo Rubio MD documented in this encounterMarymount Hospital06-30-2025 Telephone encounter Note * Telephone Encounter [...] again next week (if applicable!)- thanks! KB [facility]06-30-2025 Miscellaneous Notes* Telephone Encounter - Kelsy [...] (if applicable!)- thanks! KB documented in this encounterMarymount Hospital06-30-2025 Instructions* Patient Instructions* Renetta Petersen MA - 12/06/2024 8:22 AM EDT SEQUENTIAL SCREENINGS [facility] offers sequential screenings for women who [...] testing. It will require an appointment withour vein access technician. This is not an ultrasound performed [...] the above symptoms, contact our office at [phone] and ask to speak with anurse. After hours, you can call doctors registry at [phone] OR call [facility] at [phone] ask to have the doctor manager compensation paged. If you consider this an emergency, dial 0--9 or go to your nearest emergency department. NEED HELP? Are you dealing with a violent or abusive relationship? Are you a victim of rape or sexual assult? Call [facility] ([place]) 24 hour Crisis Hotline: 122.910.7099 or 253-894-9465. MANUAL Your Guide to a Healthy manual is now on-line. Visit [email or web address] to download your free copy documented in this encounterMarymount Hospital06-26-2025 NoteMer[facility]06-26-[facility] History of Present illness Narrative* Keshav [...] SIGNATURE: Keshav Loving DO documented in this encounterMarymount Hospital06-26-2025 Progress note* Quick Notes - Keshav [...] week. NST reactive today Keshav Loving DO [facility]06-26-2025 Miscellaneous Notes* Quick Notes - Keshav [...] today Keshav Loving DO documented in this encounterMarymount Hospital06-26-2025 Instructions* Patient Instructions* Rebeca Vazquez MA - 12/02/2024 10:05 AM EDT SEQUENTIAL SCREENINGS [facility] offers sequential screenings for women who [...] testing. It will require an appointment withour vein access technician. This is not an ultrasound performed [...] the above symptoms, contact our office at [phone] and ask to speak with anurse. After hours, you can call doctors registry at [phone] OR call [facility] at [phone] ask to have the doctor manager compensation paged. If you consider this an emergency, dial 91-5 or go to your nearest emergency department. NEED HELP? Are you dealing with a violent or abusive relationship? Are you a victim of rape or sexual assult? Call [facility] ([place]) 24 hour Crisis Hotline: 725.602.7969 or 676-675-5369. MANUAL Your Guide to a Healthy manual is now on-line. Visit [email or web address] to download your free copy documented in this encounterMarymount Hospital06-25-2025 Telephone encounter Note * Telephone Encounter [...] Will review again next week- thanks! KB [facility]06-25-2025 Miscellaneous Notes* Telephone Encounter - Kelsy [...] next week- thanks! KB documented in this encounterMarymount Hospital06-24-2025 Note Indication Evaluation of well-being Maternal [...] RDMS, RVT Read By: Elie Coronado M.D.MATERNAL [id number] Progress note* Quick Notes - William Gramajo [...] labor & FM precautions William Gramajo MD [facility]06-19-2025 Miscellaneous Notes* Quick Notes - William [...] precautions William Gramajo MD documented in this encounterMarymount Hospital06-19-2025 NoteMer[facility]06-19-2025 History of Present illness Narrative* William [...] SIGNATURE: William Gramajo MD documented in this encounterMarymount Hospital06-19-2025 Instructions* Patient Instructions* Teri Jack MA - 11/25/2024 8:48 AM EDT SEQUENTIAL SCREENINGS [facility] offers sequential screenings for women who [...] testing. It will require an appointment withour vein access technician. This is not an ultrasound performed [...] the above symptoms, contact our office at [phone] and ask to speak with anurse. After hours, you can call [employer] registry at [phone] OR call [facility] at [phone] ask to have the doctor manager compensation paged. If you consider this an emergency, dial 9-1-1 or go to your nearest emergency department. NEED HELP? Are you dealing with a violent or abusive relationship? Are you a victim of rape or sexual assult? Call [facility] ([place]) 24 hour Crisis Hotline: 218.496.6909 or 865-318-0336. MANUAL Your Guide to a Healthy manual is now on-line. Visit [email or web address] to download your free copy documented in this encounterMarymount Hospital06-19-2025 Telephone encounter Note * Telephone Encounter [...] review again next week- thanks! Dr Guillermo [facility]06-19-2025 Miscellaneous Notes* Telephone Encounter - Kelsy [...] week- thanks! Dr Guillermo documented in this encounterMarymount Hospital06-16-2025 Telephone encounter Note * Telephone Encounter - Piper Julian MD - 11/22/2024 12:31 PM EDT noted. We did receive a note from them at one point. She should follow up as they recommend and it is ok for her to undergo treatments during . Piper Julian MD [facility]06-16-2025 Miscellaneous Notes* Telephone Encounter - Piper Julian MD - 11/22/2024 12:31 PM EDT noted. We did receive a note from them at one point. She should follow up as they recommend and it is ok for her to undergo treatments during . Piper Julian MD documented in this encounterMarymount Hospital06-16-2025 Note Indication Evaluation of growth, Evaluation [...] 13 oz EFW by: Hadlock (HC-AC-FL) Extended Chain Mender 7.4 mm Extremities / Bony Struc FL [...] RDMS, RVT Read By: Alondra Segundo M.D.MATERNAL [id number] NoteMercy [facility]06-12-2025 History of Present illness Narrative* Keshav [...] SIGNATURE: Keshav Loving DO documented in this encounterMarymount Hospital06-12-2025 Progress note* Quick Notes - Keshav [...] Keep scheduled follow up Keshav Loving DO [facility]06-12-2025 Miscellaneous Notes* Quick Notes - Keshav [...] up Keshav Loving DO documented in this encounterMarymount Hospital06-12-2025 Instructions* Patient Instructions* Rebeca Vazquez MA - 11/18/2024 2:25 PM EDT SEQUENTIAL SCREENINGS [facility] offers sequential screenings for women who [...] testing. It will require an appointment withour vein access technician. This is not an ultrasound performed [...] the above symptoms, contact our office at [phone] and ask to speak with anurse. After hours, you can call doctors registry at [phone] OR call [facility] at [phone] ask to have the doctor manager compensation paged. If you consider this an emergency, dial 9-1-4 or go to your nearest emergency department. NEED HELP? Are you dealing with a violent or abusive relationship? Are you a victim of rape or sexual assult? Call [facility] ([place]) 24 hour Crisis Hotline: 909.641.9568 or 444-302-8778. MANUAL Your Guide to a Healthy manual is now on-line. Visit [email or web address] to download your free copy documented in this encounterMarymount Hospital06-11-2025 NoteMercy Health [facility]06-10-2025 Telephone encounter Note* Telephone Encounter - [...] eat enough or eat a lower carb meal.[place]o with 0 if you take less insulin. Will review again next week- thanks! KB [facility]06-10-2025 Miscellaneous Notes* Telephone Encounter - Kelsy [...] next week- thanks! KB documented in this encounterMarymount Hospital06-09-2025 Note Indication Evaluation of well-being Maternal [...] RDMS, RVT Read By: Pooja Latham M.D.MATERNAL [id number] Progress note* Quick Notes - Keshav Loving [...] - RTO 1 wk Keshav Loving DO [facility]06-09-2025 Miscellaneous Notes* Quick Notes - Keshav [...] wk Keshav Loving DO documented in this encounterMarymount Hospital06-09-2025 Instructions* Patient Instructions* Rebeca Vazquez MA - 11/15/2024 8:24 AM EDT SEQUENTIAL SCREENINGS [facility] offers sequential screenings for women who [...] testing. It will require an appointment withour vein access technician. This is not an ultrasound performed [...] the above symptoms, contact our office at [phone] and ask to speak with anurse. After hours, you can call doctors registry at [phone] OR call [facility] at [phone] ask to have the doctor manager compensation paged. If you consider this an emergency, dial 9--1 or go to your nearest emergency department. NEED HELP? Are you dealing with a violent or abusive relationship? Are you a victim of rape or sexual assult? Call [facility] ([place]) 24 hour Crisis Hotline: 565.688.1598 or 426-465-5124. MANUAL Your Guide to a Healthy manual is now on-line. Visit [email or web address] to download your free copy documented in this encounterMarymount Hospital06-05-2025 Progress note* Quick Notes - Krys [...] 2 diabetes mellitus in in third trimester ([facility]) - ICD9: 648.03, 250.00, ICD10: O24.113 (primary diagnosis) - Controlled - URINE OB DIP B/O 2. pruritus, third trimester ([facility]) - ICD9: 646.83, 698.9, ICD10: O99.713, L29.9 Labs normal - URINE OB DIP B/O 3. History of pre-eclampsia - ICD9: V13.29, ICD10: Z87.59 TruBP normal - URINE OB DIP B/O 4. H/O macrosomia in in prior , currently ([facility]) - ICD9: V23.49, ICD10: O09.299 - URINE OB DIP B/O 5. 34 weeks gestation of ([facility]) - ICD9: V22.2, ICD10: Z3A.34 - URINE OB DIP B/O Krys Kulkarni MD [facility]06-05-2025 Miscellaneous Notes* Quick Notes - Krys Kulkarni MD - 11/11/2024 4:47 PM EDT S: Melsisa Byrne is a 29 year old female [...] 2 diabetes mellitus in in third trimester ([facility]) - ICD9: 648.03, 250.00, ICD10: O24.113 (primary diagnosis) - Controlled - URINE OB DIP B/O 2. pruritus, third trimester ([facility]) - ICD9: 646.83, 698.9, ICD10: O99.713, L29.9 Labs normal - URINE OB DIP B/O 3. History of pre-eclampsia - ICD9: V13.29, ICD10: Z87.59 TruBP normal - URINE OB DIP B/O 4. H/O macrosomia in infant in prior , currently ([facility]) - ICD9: V23.49, ICD10: O09.299 - URINE OB DIP B/O 5. 34 weeks gestation of ([facility]) - ICD9: V22.2, ICD10: Z3A.34 - URINE OB DIP B/O Krys Kulkarni MD documented in this encounterMarymount Hospital06-05-2025 Instructions* Patient Instructions* Renetta Petersen MA - 11/11/2024 9:11 AM EDT SEQUENTIAL SCREENINGS [facility] offers sequential screenings for women who [...] testing. It will require an appointment withour vein access technician. This is not an ultrasound performed [...] the above symptoms, contact our office at [phone] and ask to speak with anurse. After hours, you can call doctors registry at [phone] OR call [facility] at [phone] ask to have the doctor manager compensation paged. If you consider this an emergency, dial 9-2-8 or go to your nearest emergency department. NEED HELP? Are you dealing with a violent or abusive relationship? Are you a victim of rape or sexual assult? Call [facility] 24 hour Crisis Hotline: 119.563.6546 or 501-805-7913. MANUAL Your Guide to a Healthy manual is now on-line. Visit [email or web address] to download your free copy documented in this encounterMarymount Hospital06-02-2025 Note Indication Evaluation of well-being Maternal [...] RDMS, RVT Read By: Pooja Latham M.D.MATERNAL [id number] History of Present illness Narrative* Krys Kulkarni MD - 11/05/2024 11:22 AM EDT NST SUMMARY PROVIDER ASSESSMENT AND INTERPRETATION Indications for NST: Diabetes - Insulin Controlled Baseline: 140 Variability: Moderate Accelerations: Present 15 X 15 Decelerations: None Interpretation: Reactive SIGNATURE: Krys Kulkarni MD documented in this encounterMarymount Hospital05-30-2025 NoteMer[facility] Health [facility]05-30-2025 Progress note* Quick Notes - Krys [...] ago ASSESSMENT/PLAN: 1. 33 weeks gestation of ([facility]) - ICD9: V22.2, ICD10: Z3A.33 (primary diagnosis) PTL precautions - URINE OB DIP B/O 2. pruritus Shemar acids and LFTs ordered - URINE OB DIP B/O 3. Pre-existing type 2 diabetes mellitus in in third trimester ([facility]) - ICD9: 648.03, 250.00, ICD10: O24.113 Sees endocrine for management. Stable this week Optho complete and f/u in Jan NST and BPP weekly - URINE OB DIP B/O 4. Supervision of high risk in third trimester ([facility]) - ICD9: V23.9, ICD10: O09.93 - URINE OB DIP B/O Krys Kulkarni MD [facility]05-30-2025 Miscellaneous Notes* Quick Notes - Krys [...] ago ASSESSMENT/PLAN: 1. 33 weeks gestation of ([facility]) - ICD9: V22.2, ICD10: Z3A.33 (primary diagnosis) PTL precautions - URINE OB DIP B/O 2. pruritus Shemar acids and LFTs ordered - URINE OB DIP B/O 3. Pre-existing type 2 diabetes mellitus in in third trimester ([facility]) - ICD9: 648.03, 250.00, ICD10: O24.113 Sees endocrine for management. Stable this week Optho complete and f/u in Jan NST and BPP weekly - URINE OB DIP B/O 4. Supervision of high risk in third trimester ([facility]) - ICD9: V23.9, ICD10: O09.93 - URINE OB DIP B/O Krys Kulkarni MD documented in this encounterMarymount Hospital05-30-2025 Instructions* Patient Instructions* Rebeca Vazquez MA - 11/05/2024 10:18 AM EDT SEQUENTIAL SCREENINGS [facility] offers sequential screenings for women who [...] testing. It will require an appointment withour vein access technician. This is not an ultrasound performed [...] the above symptoms, contact our office at [phone] and ask to speak with anurse. After hours, you can call doctors registry at [phone] OR call [facility] at [phone] ask to have the doctor manager compensation paged. If you consider this an emergency, dial 9-1-2 or go to your nearest emergency department. NEED HELP? Are you dealing with a violent or abusive relationship? Are you a victim of rape or sexual assult? Call [facility] ([place]) 24 hour Crisis Hotline: 979.631.8242 or 323-918-6752. MANUAL Your Guide to a Healthy manual is now on-line. Visit [email or web address] to download your free copy documented in this encounterMarymount Hospital05-29-2025 Miscellaneous Notes* Forensic/SANE/Chava - Alicia Pitts RN - 11/04/2024 1:00 PM EDTSummary: [place] Power Consult Note 11/04/24 [facility] Neurological Surgery Teacher Note Hospital Name: [place] Completed by: Alicia Pitts RN Date: November 04, 2024 [employer] Resource Time: 2.5 hours Consult Code:A and D Consult Type: In-person outpatient Safety Concerns: No Melissa Byrne [id number] Preferred Name: Hoda OB Provider: Piper Julian Estimated Date of Delivery: 12/18/24 Designated Support People: fob- Alexi and mother- Anabella Labor Plan at time of Consult: Vaginal, Medicated, Breast milk Primary Themes During Consult: Relationship with partner, family, 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 The last week of the month is very hard for them. She is aware that social service is available to talk. documented in this encounterMarymount Hospital05-29-2025 Progress note* Forensic/SANE/MPower - Alicia Pitts RN - 11/04/2024 1:00 PM EDTSummary: [place] Wheeler Consult Note 11/04/24 [facility] Neurological Surgery Teacher Note Hospital Name: [place] Completed by: Alicia Pitts RN Date: November 04, 2024 [employer] Resource Time: 2.5 hours Consult Code:A and D Consult Type: In-person outpatient Safety Concerns: No Melissa Byrne [phone] Preferred Name: Hoda OB Provider: Piper Julian Estimated Date of Delivery: 12/18/24 Designated Support People: fob- Alexi and mother- Anabella Labor Plan at time of Consult: Vaginal, Medicated, Breast milk Primary Themes During Consult: Relationship with partner, family, 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 The last week of the month is very hard for them. She is aware that social service is available to talk. [facility]05-29-[facility] History of Present illness Narrative* Carrie Larsen, RD - 11/04/2024 11:00 AM EDT [facility] Medical Nutrition Therapy Follow up Visit Type: In-Person (Face to Face): Lydia Alonzo [facility] Nutritional Visit: MNT/DIABETES Medical Diagnosis: Type [...] 191 lbs Pre- BMI: 34.9 TW lbs [employer] [employer] Weight Gain Recommendations for : [...] -current GA: 13w4d -she is using the Revstryle zoltan 3 plus CGM and checking BG [...] as prescribed, reports no missed doses -receives [facility] benefits -lost upper dentures with no plan [...] 10-IRON FUM-FOLIC ORAL Take by mouth. Insulin [place], Disposable, (BD ULTRAFINE III MINI PEN) 31 [...] Larsen M.S., RDN, LD documented in this encounterMarymount Hospital05-29-2025 NoteMercy Health [facility]05-29-2025 History of Present illness Narrative* Kelsy [...] during that - had macrosomia, delivered in [place]. She was initially diagnosed with type 2 [...] overall. PAST MEDICAL HISTORY Diagnosis Date Asthma ([facility]) Bipolar H/O macrosomia in in prior , currently ([facility]) 05/07/2024 Herpes simplex type 2 (HSV-2) infection affecting , antepartum, unspecified trimester ([facility]) 04/19/2024 Hyperlipidemia LGA (large for gestational age) infant ([facility]) 12/23/2016 12/23/16 - >95% Polyhydramnios ([facility]) 01/01/2017 Pre-existing type 2 diabetes mellitus in in first trimester ([facility]) 06/15/2024 First trimester Hgb A1c 10.5%, now follows with Dr. Guillermo Recurrent UTI Type 2 diabetes mellitus ([facility]) PAST SURGICAL HISTORY Procedure Laterality Date CHOLECYSTECTOMY [...] EVERY DAYAT BEDTIME 180 tablet 1 lancets (PharmaSecureUCH DELICA PLUS LANCET) 30 gauge Use with [...] 10-IRON FUM-FOLIC ORAL Take by mouth. Insulin [place], Disposable, (BD ULTRAFINE III MINI PEN) 31 [...] which included preparing to see the patient, jydd-zt-ryka patient care, completing clinical documentation, obtaining and/or reviewing separately obtained history, performing a medically appropriate examination, counseling and educating the pat ient/family/caregiver, and ordering medications, tests, or procedures. Kelsy Guillermo DO documented in this encounterMarymount Hospital05-29-2025 NoteMercy Health [facility]05-29-2025 Instructions* Patient Instructions* Kelsy Guillermo DO [...] (virtual or in person) documented in this encounterMarymount Hospital05-28-2025 Telephone encounter Note * Telephone Encounter - Charlette Starkey RN - 11/03/2024 10:31 AM EDT Order signed and faxed. Charlette Starkey RN [facility]05-28-2025 Miscellaneous Notes* Telephone Encounter - Charlette Starkey RN - 11/03/2024 10:31 AM EDT Order signed and faxed. Charlette Starkey RN * Telephone Encounter - Charlette Starkey RN - 10/29/2024 2:44 PM EDT Breast pump order received from [employer]. To RR to sign. Charlette Starkey RN documented in this encounterMarymount Hospital05-28-2025 Telephone encounter Note * Telephone Encounter - Piper Julian MD - 11/03/2024 10:13 AM EDT noted, we will encourage f/u w/ optho. Piper Julian MD [facility]05-28-2025 Miscellaneous Notes* Telephone Encounter - Piper Julian MD - 11/03/2024 10:13 AM EDT noted, we will encourage f/u w/ optho. Piper Julian MD * Telephone Encounter - Brenda Lares RN - 11/02/2024 11:30 AM EDT I called patient's retinal specialist and spoke with nurse Smith, in Dr Holloway's office at [facility] ph [phone] @ the request of Dr Pooja Latham. [...] inform doctor. Letter has been scanned into [employer]. documented in this encounterMarymount Hospital05-27-2025 Telephone encounter Note * Telephone Encounter - Brenda Lares RN - 11/02/2024 11:30 AM EDT I called patient's retinal specialist and spoke with nurse Smith, in Dr Holloway's office at [facility] ph [phone] @ the request of Dr Pooja Latham. [...] inform doctor. Letter has been scanned into [employer]. [facility]05-27-2025 NoteHNO ID: [id number] Author: WILLIAM GRAMAJO MD Service: ? Author Type: Physician Type: Progress Notes Filed: 11/02/2024 11:32 Note Text: N/[facility]Cl[facility]Ohio[facility]-27[facility] History of Present illness Narrative* William Gramajo MD - 11/02/2024 11:30 AM EDT N/a documented in this encounterMarymount Hospital05-27-2025 Progress note* Quick Notes - William Gramajo MD - 11/02/2024 11:02 AM EDT KJ - S: Hoda denies LOF, contractions or vaginal bleeding. O: 33w3d, see flow sheet SENSITIVE EXAM: Sensitive exam not performed. A/P: Assessment & Plan Pre-existing type 2 diabetes mellitus in in third trimester ([facility]) Managed by . Patient reports overall good control. Orders: URINE OB DIP B/O History of pre-eclampsia Continue aspirin Orders: URINE OB DIP B/O H/O macrosomia in infant in prior , currently ([facility]) EFW on growth US shows AGA and expected to be smaller than 1st baby. Growth US with MFM today. Orders: URINE OB DIP B/O 33 weeks gestation of ([facility]) Orders: URINE OB DIP B/O Request for sterilization Title 19 papers signed today Herpes simplex type 2 (HSV-2) infection affecting , antepartum, unspecified trimester ([facility]) On acyclovir prophylaxis William Gramajo MD [facility]05-27-2025 Miscellaneous Notes* Quick Notes - William Gramajo MD - 11/02/2024 11:02 AM EDT KJ - S: Hoda denies LOF, contractions or vaginal bleeding. O: 33w3d, see flow sheet SENSITIVE EXAM: Sensitive exam not performed. A/P: Assessment & Plan Pre-existing type 2 diabetes mellitus in in third trimester ([facility]) Managed by . Patient reports overall good control. Orders: URINE OB DIP B/O History of pre-eclampsia Continue aspirin Orders: URINE OB DIP B/O H/O macrosomia in in prior , currently ([facility]) EFW on growth US shows AGA and expected to be smaller than 1st baby. Growth US with MFM today. Orders: URINE OB DIP B/O 33 weeks gestation of ([facility]) Orders: URINE OB DIP B/O Request for sterilization Title 19 papers signed today Herpes simplex type 2 (HSV-2) infection affecting , antepartum, unspecified trimester ([facility]) On acyclovir prophylaxis William Gramajo MD documented in this encounterMarymount Hospital05-27-2025 Instructions* Patient Instructions* Nicola RenettaITZEL - 11/02/2024 10:43 AM EDT SEQUENTIAL SCREENINGS [facility] offers sequential screenings for women who [...] testing. It will require an appointment withour vein access technician. This is not an ultrasound performed [...] the above symptoms, contact our office at [phone] and ask to speak with anurse. After hours, you can call doctors registry at [phone] OR call [facility] at [phone] ask to have the doctor manager compensation paged. If you consider this an emergency, dial 9-1-1 or go to your nearest emergency department. NEED HELP? Are you dealing with a violent or abusive relationship? Are you a victim of rape or sexual assult? Call [facility] ([place]) 24 hour Crisis Hotline: 793.318.3834 or 816-616-4504. MANUAL Your Guide to a Healthy manual is now on-line. Visit [email or web address] to download your free copy documented in this encounterMarymount Hospital05-27-2025 Note Indication Evaluation of well-being Maternal [...] RDMS, RVT Read By: Pooja Latham M.D.MATERNAL [id number] Telephone encounter Note* Telephone Encounter - Charlette Starkey RN - 10/29/2024 2:44 PM EDT Breast pump order received from [employer]. To RR to sign. Charlette Starkey RN [facility]05-19-2025 Progress note* Quick Notes - Piper [...] growth scans up to date will contact [employer] as patient reports she doesn't have to go back unless visual changes but want toconfirm this cont acyclovir for HSV prophylaxis Piper Julian M.D. [facility]05-19-2025 Miscellaneous Notes* Quick Notes - Piper [...] 2 diabetes mellitus in in third trimester ([facility]) Orders: ECG COMPLETE URINE OB DIP B/O [...] prophylaxis Piper Julian M.D. documented in this encounterMarymount Hospital05-19-2025 [facility] History of Present illness Narrative* Piper [...] SIGNATURE: Piper Julian MD documented in this encounterMarymount Hospital05-19-2025 Instructions* Patient Instructions* Renetta Petersen MA - 10/25/2024 9:26 AM EDT SEQUENTIAL SCREENINGS The [facility] offers sequential screenings for women who [...] testing. It will require an appointment withour vein access technician. This is not an ultrasound performed [...] the above symptoms, contact our office at [phone] and ask to speak with anurse. After hours, you can call doctors registry at [phone] OR call [facility] at [phone] ask to have the doctor manager compensation paged. If you consider this an emergency, dial 9--1 or go to your nearest emergency department. NEED HELP? Are you dealing with a violent or abusive relationship? Are you a victim of rape or sexual assult? Call [facility] ([place]) 24 hour Crisis Hotline: 697.597.1967 or 810-555-1588. MANUAL Your Guide to a Healthy manual is now on-line. Visit [email or web address] to download your free copy documented in this encounterMarymount Hospital05-13-2025 Telephone encounter Note * Telephone Encounter [...] Will review again next week- thanks! KB [facility]05-13-2025 Miscellaneous Notes* Telephone Encounter - Kelsy [...] next week- thanks! KB documented in this encounterMarymount Hospital05-12-2025 Progress note* Quick Notes - Whit Morton MD - 10/18/2024 4:06 PM EDT DM-Pt doing well. Denies vaginal Bleeding, Leaking fluid, or regular Contractions. Pt reports good movement Physical Exam: Gen: female in no apparent distress Abd: soft, Gravid. Non tender to palpation. See flow sheet @ 31 weeks Assessment & Plan Supervision of high risk in third trimester ([facility]) Orders: URINE OB DIP B/O Pre-existing type 2 diabetes mellitus in in third trimester ([facility]) Sees Endocrinology - states pretty well controlled no adjustment on Insulin per endocrinology last A1c 5.2 down from 7.9 Orders: URINE OB DIP B/O Herpes simplex type 2 (HSV-2) infection affecting , antepartum, unspecified trimester ([facility]) Taking acyclovir H/O macrosomia in in prior , currently ([facility]) Growth us scheduled History of pre-eclampsia Continue ASA 31 weeks gestation of ([facility]) Kick counts and labor reviewed NSTs and BPP scheduled Orders: URINE OB DIP B/O Whit Patel MD [facility]05-12-2025 Miscellaneous Notes* Quick Notes - Whit Morton MD - 10/18/2024 4:06 PM EDT DM-Pt doing well. Denies vaginal Bleeding, Leaking fluid, or regular Contractions. Pt reports good movement Physical Exam: Gen: female in no apparent distress Abd: soft, Gravid. Non tender to palpation. See flow sheet @ 31 weeks Assessment & Plan Supervision of high risk in third trimester ([facility]) Orders: URINE OB DIP B/O Pre-existing type 2 diabetes mellitus in in third trimester ([facility]) Sees Endocrinology - states pretty well controlled no adjustment on Insulin per endocrinology last A1c 5.2 down from 7.9 Orders: URINE OB DIP B/O Herpes simplex type 2 (HSV-2) infection affecting , antepartum, unspecified trimester ([facility]) Taking acyclovir H/O macrosomia in infant in prior , currently ([facility]) Growth us scheduled History of pre-eclampsia Continue ASA 31 weeks gestation of ([facility]) Kick counts and labor reviewed NSTs and BPP scheduled Orders: URINE OB DIP B/O Whit Patel MD documented in this encounterMarymount Hospital05-12-2025 Instructions* Patient Instructions* Rebeca Vazquez MA - 10/18/2024 1:34 PM EDT SEQUENTIAL SCREENINGS The [facility] offers sequential screenings for women who [...] testing. It will require an appointment withour vein access technician. This is not an ultrasound performed [...] the above symptoms, contact our office at [phone] and ask to speak with anurse. After hours, you can call doctors registry at [phone] OR call [facility] at [phone] ask to have the doctor manager compensation paged. If you consider this an emergency, dial 02-07- or go to your nearest emergency department. NEED HELP? Are you dealing with a violent or abusive relationship? Are you a victim of rape or sexual assult? Call [facility] ([place]) 24 hour Crisis Hotline: 118.141.4203 or 578-654-0654. MANUAL Your Guide to a Healthy manual is now on-line. Visit [email or web address] to download your free copy documented in this encounterMarymount Hospital05-10-2025 History and physical note [facility] Medical Records Department [address] [place] [address] OB Triage Physician Note 10/16/24 1838 MR#: [id number] Acct: [id number] Name: MELISSA BYRNE Rep #:[id number] : 1995 29 From: Mariajose Nickerson CNM PCP: Dr. Jamari Byrne MD Status:REG CLI Y Location: [id number] HPI - General HPI Narrative MELISSA BYRNE, [...] Nickerson; Dr. Jamari Byrne MD ~ Signed [facility]05-10-2025 Evaluation note* Diagnosis Onset Date Resolution [...] diabetes mellitus acute December 16, 2024 7:10pm [facility] Work Phone: 1(530) 780-805005-06-2025 NoteHNO ID: [id number] Author: PAMELA HASKINS MD Service: ? Author Type: Physician Type: Progress Notes Filed: 10/13/2024 09:11 Note Text: Dr. Piper Julian NAME: Melissa Byrne CLINIC Number.: [id number] Date of : 1995 Date of Visit: [...] which included preparing to see the patient, [id number] patient care, completing clinical documentation, obtaining and/or reviewing separately obtained history, performing a medically appropriate examination, counseling and educating the patient/family/caregiver, ordering medications, tests, or procedures, communicating with other HCPs (not separately reported), independently interpreting results (not separately reported), communicating results to the patient/family/caregiver, and care coordination (not separately reported). Sincerely, Dr. Pamela [facility] History of Present illness Narrative* Pamela Haskins MD - 10/12/2024 6:[address] Piper Julian NAME: Melissa Byrne CLINIC Number.: [id number] Date of : 1995 Date of Visit: [...] which included preparing to see the patient, [id number] patient care, completing clinical documentation, obtaining and/or reviewing separately obtained history, performing a medically appropriate examination, counseling and educating the pat ient/family/caregiver, ordering medications, tests, or procedures, communicating with other HCPs (not separately reported), independently interpreting results (not separately reported), communicatingresults to the patient/family/caregiver, and care coordination (not separately reported). Sincerely, Dr. Pamela Haskins documented in this encounterMarymount Hospital05-02-2025 Telephone encounter Note * Telephone Encounter [...] Will review again next week- thanks! KB [facility]05-02-2025 Miscellaneous Notes* Telephone Encounter - Kelsy [...] next week- thanks! KB documented in this encounterMarymount Hospital04-28-2025 Progress note* Quick Notes - Piper [...] CULTURE, URINE; Future 29 weeks gestation of ([facility]) Orders: ECG COMPLETE; Future NON-STRESS TEST; Standing PROTEIN / CREATININE RATIO; Future BACTERIAL CULTURE, URINE; Future Pre-existing type 2 diabetes mellitus in in third trimester ([facility]) Orders: ECG COMPLETE; Future NON-STRESS TEST; Standing PROTEIN / CREATININE RATIO; Future BACTERIAL CULTURE, URINE; Future Supervision of high risk in third trimester ([facility]) Orders: ECG COMPLETE; Future NON-STRESS TEST; Standing PROTEIN / CREATININE RATIO; Future BACTERIAL CULTURE, URINE; Future Chromosome abnormality ([facility]) see problem list patient declined testing for this neg. carrier and NIPT test this previous child had testing at [facility] Pre-existing type 2 diabetes mellitus in in first trimester ([facility]) follows w/ endocrine, hgba1 c controlled dm retinopathy - has f/u w/ optho ecg ordered/encouraged check prot/creat ratio today 28 week labs done Tobacco smoking complicating in first trimester ([facility]) decreased to 2 cig a day, encouraged to quit, support offered History of recurrent UTI (urinary tract infection) recheck culture today 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, 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, unspecifiedwhether termination clerk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 ([facility]) f/u optho as scheduled Herpes simplex type 2 (HSV-2) infection affecting , antepartum, unspecified trimester ([facility]) prophylaxis ordered, no outbreaks recently taking abx for BV on PNV and ASA start nsts at 32 weeks wait for MFM to read US repeat US in 4 weeks tdap today Medical Decision Making: Problems: Moderate: 1+ chronic illnesses with change Data: Unique test(s) ordered: 3+ Medical Decision Making Level: 4 - Moderate Piper Julian M.D. [facility]04-28-2025 Miscellaneous Notes* Quick Notes - Piper [...] CULTURE, URINE; Future 29 weeks gestation of ([facility]) Orders: ECG COMPLETE; Future NON-STRESS TEST; Standing PROTEIN / CREATININE RATIO; Future BACTERIAL CULTURE, URINE; Future Pre-existing type 2 diabetes mellitus in in third trimester ([facility]) Orders: ECG COMPLETE; Future NON-STRESS TEST; Standing PROTEIN / CREATININE RATIO; Future BACTERIAL CULTURE, URINE; Future Supervision of high risk in third trimester ([facility]) Orders: ECG COMPLETE; Future NON-STRESS TEST; Standing PROTEIN / CREATININE RATIO; Future BACTERIAL CULTURE, URINE; Future Chromosome abnormality ([facility]) see problem list patient declined testing for this neg. carrier and NIPT test this previous child had testing at [facility] Pre-existing type 2 diabetes mellitus in in first trimester ([facility]) follows w/ endocrine, hgba1 c controlled dm retinopathy - has f/u w/ optho ecg ordered/encouraged check prot/creat ratio today 28 week labs done Tobacco smoking complicating in first trimester ([facility]) decreased to 2 cig a day, encouraged to quit, support offered History of recurrent UTI (urinary tract infection) recheck culture today 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, 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, unspecifiedwhether senior living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 ([facility]) f/u optho as scheduled Herpes simplex type 2 (HSV-2) infection affecting , antepartum, unspecified trimester ([facility]) prophylaxis ordered, no outbreaks recently taking abx for BV on PNV and ASA start nsts at 32 weeks wait for MFM to read US repeat US in 4 weeks tdap today Medical Decision Making: Problems: Moderate: 1+ chronic illnesses with change Data: Unique test(s) ordered: 3+ Medical Decision Making Level: 4 - Moderate Piper Julian M.D. documented in this encounterMarymount Hospital04-28-2025 Instructions* Patient Instructions* Teri Jack MA - 10/04/2024 11:10 AM EDT SEQUENTIAL SCREENINGS The [facility] offers sequential screenings for women who [...] testing. It will require an appointment withour vein access technician. This is not an ultrasound performed [...] the above symptoms, contact our office at [phone] and ask to speak with anurse. After hours, you can call doctors registry at [phone] OR call [facility] at [phone] ask to have the doctor manager compensation paged. If you consider this an emergency, dial 9--7 or go to your nearest emergency department. NEED HELP? Are you dealing with a violent or abusive relationship? Are you a victim of rape or sexual assult? Call [facility] ([place]) 24 hour Crisis Hotline: 436.955.7150 or 261-048-7227. MANUAL Your Guide to a Healthy manual is now on-line. Visit [email or web address] to download your free copy documented in this encounterMarymount Hospital04-21-2025 Telephone encounter Note * Telephone Encounter - Juana Terrazas RN - 09/27/2024 4:43 PM EDT [employer] message sent to Pt and Pt read on 09/27/24. Juana Terrazas RN [facility]04-21-2025 Miscellaneous Notes* Telephone Encounter - Juana Terrazas RN - 09/27/2024 4:43 PM EDT [employer] message sent to Pt and Pt read [...] absence. Juana Terrazas RN documented in this encounterMarymount Hospital04-21-2025 Telephone encounter Note * Telephone Encounter - Krys Kulkarni MD - 09/27/2024 1:43 PM EDT Rx sent [facility]04-21-2025 Telephone encounter Note* Telephone Encounter - [...] review in LEE absence. Juana Terrazas RN [facility]04-18-2025 Evaluation note* Diagnosis Onset Date Resolution [...] , antepartum acute October 16, 2024 5:10pm [facility] Work Phone: 1(324) 218-644904-18-2025 Evaluation note* Diagnosis Onset Date Resolution Status [...] , antepartum acute December 07, 2024 11:00am [facility] Work Phone: 1(299) 598-684004-18-2025 Evaluation note* Diagnosis Onset Date Resolution Status [...] diabetes mellitus acute December 16, 2024 7:10pm [facility] Work Phone: 1(441) 307-574804-18-2025 Evaluation note* Diagnosis Onset Date Resolution Status [...] 15, 2024 3:32pm 35 weeks gestation of [facility] emergency department tive November 15, 2024 3:32pm False labor [...] diabetes mellitus acute December 16, 2024 7:10pm [facility] Work Phone: 1(354) 579-151604-18-2025 Telephone encounter Note* Telephone Encounter - Kelsy [...] Will review again next week- thanks! KB [facility]04-18-2025 Miscellaneous Notes* Telephone Encounter - Kelsy [...] next week- thanks! KB documented in this encounterMarymount Hospital04-18-2025 NoteMer[facility]04-18-20[facility] History of Present illness Narrative* Leonie [...] discussed with the Patient or Patient's Authorized Third Steel Pourer. Asapplicable, any other physician, advance practice provider, medical student, or other health professional student that will be observing or involved in the sensitive examination for educational or training purposes was discussed with the Patient or Authorized Third Steel Pourer. The Patient or Authorized Third Steel Pourer has agreed to proceed with the sensitive [...] scheduled Leonie Waldron APRN.CNM documented in this encounterMarymount Hospital04-18-2025 Telephone encounter Note * Telephone Encounter - Faina Levin MA - 09/24/2024 8:44 AM EDT OneTouch test strips were sent to [facility], patient requesting [facility]. Sent patient mychart message to contact [facility] [place] to fill at that location. [facility]04-18-2025 Miscellaneous Notes* Telephone Encounter - Faina Levin MA - 09/24/2024 8:44 AM EDT OneTouch test strips were sent to [facility], patient requesting [facility]. Sent patient mychart message to contact [facility] to fill at that location. documented in this encounterMarymount Hospital04-18-2025 Instructions* Patient Instructions* Oniel Vinson MA - 09/24/2024 8:41 AM EDT SEQUENTIAL SCREENINGS The [facility] offers sequential screenings for women who [...] testing. It will require an appointment withour vein access technician. This is not an ultrasound performed [...] the above symptoms, contact our office at [phone] and ask to speak with anurse. After hours, you can call doctors registry at [phone] OR call [facility] at [phone] ask to have the doctor manager compensation paged. If you consider this an emergency, dial or go to your nearest emergency department. NEED HELP? Are you dealing with a violent or abusive relationship? Are you a victim of rape or sexual assult? Call [facility] ([place]) 24 hour Crisis Hotline: 498.425.9366 or 780-551-3260. MANUAL Your Guide to a Healthy manual is now on-line. Visit [email or web address] to download your free copy documented in this encounterMarymount Hospital04-18-2025 NoteMer[facility]04-18-2025 History of Present illness Narrative* Mary [...] vaginal leaking, bleeding, contractions. documented in this encounterMarymount Hospital04-14-2025 Instructions* Patient Instructions* Kelsy Guillermo DO [...] f/u (prefers in person). documented in this encounterMarymount Hospital04-14-2025 History of Present illness Narrative* Kelsy [...] DM during thatpregnancy- had macrosomia, delivered in [place]. She was initially diagnosed with type 2 [...] overall. PAST MEDICAL HISTORY Diagnosis Date Asthma ([facility]) Bipolar H/O macrosomia in infant in prior , currently ([facility]) 05/07/2024 Herpes simplex type 2 (HSV-2) infection affecting , antepartum, unspecified trimester ([facility]) 04/19/2024 Hyperlipidemia LGA (large for gestational age) ([facility]) 12/23/2016 12/23/16 - >95% Polyhydramnios ([facility]) 01/01/2017 Pre-existing type 2 diabetes mellitus in in first trimester ([facility]) 06/15/2024 First trimester Hgb A1c 10.5%, now follows with Dr. Guillermo Recurrent UTI Type 2 diabetes mellitus ([facility]) PAST SURGICAL HISTORY Procedure Laterality Date CHOLECYSTECTOMY [...] TIMES DAILY 150 Each 11 Blood-Glucose Meter (AframeTOUCH VERIO FLEX METER) Use to check blood [...] 10-IRON FUM-FOLIC ORAL Take by mouth. Insulin [place], Disposable, (BD ULTRAFINE III MINI PEN) 31 [...] forward me your blood glucose data weekly ([email or web address]) as you are doing- 3) [...] which included preparing to see the patient, [id number] patient care, completing clinical documentation, obtaining and/or reviewing separately obtained history, performing a medically appropriate examination, counseling and educating the pat ient/family/caregiver, and ordering medications, tests, or procedures. Kelsy Guillermo DO documented in this encounterMarymount Hospital04-14-2025 NoteMer[facility]04-05-2025 Telephone encounter Note* Telephone Encounter - [...] review again next week- thanks! Dr Guillermo [facility]04-05-2025 Miscellaneous Notes* Telephone Encounter - Kelsy [...] week- thanks! Dr Guillermo documented in this encounterMarymount Hospital04-01-2025 Telephone encounter Note * Telephone Encounter [...] Will review again next week- thanks NILES [facility]04-01-2025 Miscellaneous Notes* Telephone Encounter - Kelsy [...] next week- thanks NILES documented in this encounterMarymount Hospital04-01-2025 Telephone encounter Note * Telephone Encounter - Amelia Rose RN - 09/07/2024 12:46 PM EDT Spoke to patient and advised as below. Patient verbalized understanding. [facility]04-01-2025 Miscellaneous Notes* Telephone Encounter - Amelia [...] calling: self Call patient at: at home [phone] (home) [phone] (cell) Was an appointment scheduled: No Closing statement: Results or non-symptom based questions: Thank you for calling [facility], your call will be returned within the next business day. Kim East documented in this encounterMarymount Hospital04-01-2025 Telephone encounter Note * Telephone Encounter - Kelsy Guillermo DO - 09/07/2024 12:39 PM EDT Please advise her that she does not need to do glucose tolerance testing- she is already checking BG/taking insulin- so this test will not change her management KB [facility]04-01-2025 Telephone encounter Note* Telephone Encounter - [...] calling: self Call patient at: at home [phone] (home) [phone] (cell) Was an appointment scheduled: No Closing statement: Results or non-symptom based questions: Thank you for calling [facility], your call will be returned within the next business day. Kim Guerrero Pss [facility]04-01-2025 Progress note* Quick Notes - Ronaldo Rubio MD - 09/07/2024 11:15 AM EDT Patient at 25w 3 days, Type II Diabetic followed by endocrine. Reports FBSs ~ 90-95, and 2hrs Endocrine appointment 09/14. Denies ctrx, bleeding, lof labs today echo 5/6 rto 2 weeks Ronaldo Rubio MD [facility] Work Phone: 1(953) 895-633304-01-2025 Miscellaneous Notes* Quick Notes - Ronaldo Rubio MD - 09/07/2024 11:15 AM EDT Patient at 25w 3 days, Type II Diabetic followed by endocrine. Reports FBSs ~ 90-95, and 2hrs </= 120 (no book with her) Endocrine appointment 09/14. Denies ctrx, bleeding, lof labs today echo 5/6 rto 2 weeks Ronaldo Rubio MD documented in this encounterMarymount Hospital04-01-2025 Instructions* Patient Instructions* Sundeep Salvador MA - 09/07/2024 10:40 AM EDT SEQUENTIAL SCREENINGS [facility] offers sequential screenings for women who [...] testing. It will require an appointment withour vein access technician. This is not an ultrasound performed [...] the above symptoms, contact our office at [phone] and ask to speak with anurse. After hours, you can call doctors registry at [phone] OR call [facility] at [phone] ask to have the doctor manager compensation paged. If you consider this an emergency, dial 2-5-5 or go to your nearest emergency department. NEED HELP? Are you dealing with a violent or abusive relationship? Are you a victim of rape or sexual assult? Call [facility] ([place]) 24 hour Crisis Hotline: 877.983.1510 or 029-875-7665. MANUAL Your Guide to a Healthy manual is now on-line. Visit [email or web address] to download your free copy documented in this encounterMarymount Hospital03-31-2025 History of Present illness Narrative* Jamari [...] to Dr Groves after Maternal med in [facility] every 4 week Quit smoking but down to 2 cig per day Stress living arrangements Will try to breast feeding Receives [facility] Bipolar depression Rx Dr Jackson 1 month [...] all orders for this visit: Exercise-induced asthma ([facility]) - albuterol 90 mcg/actuation inhaler; INHALE 1 [...] if she stop smoking [facility] Work Phone: 1(125) 570-767803-31-2025 Telephone encounter Note* Telephone Encounter - Idania Murphy RN - 09/06/2024 9:48 AM EDT Request received from pharmacy for 90 day supply of aspirin Rx. Patient 25w2d, last seen in office on 08/10/24. Idania Murphy RN [facility]03-31-2025 Miscellaneous Notes* Telephone Encounter - Idania Murphy RN - 09/06/2024 9:48 AM EDT Request received from pharmacy for 90 day supply of aspirin Rx. Patient 25w2d, last seen in office on 08/10/24. Idania Murphy RN documented in this encounterMarymount Hospital03-28-2025 Note Indication Follow-up evaluation to complete [...] 6 oz EFW by: Hadlock (HC-AC-FL) Extended Chain Mender 6.2 mm CM 8.6 mm 97% Nicolaides [...] RDMS, RVT Read By: Mario Martin M.D.MATERNAL [id number] Telephone encounter Note* Telephone Encounter - Kelsy [...] Will review again next week- thanks! KB [facility]03-24-2025 Miscellaneous Notes* Telephone Encounter - Kelsy [...] next week- thanks! KB documented in this encounterMarymount Hospital03-19-2025 Telephone encounter Note * Telephone Encounter - Charlette Starkey RN - 08/25/2024 9:52 AM EDT Patient notified. She wanted to move u/s up sooner. Scheduled for 09/02. Patient also preferred to keep 09/07 OB appointment as scheduled with RR. Charlette Starkey, RN [facility]03-19-2025 Miscellaneous Notes* Telephone Encounter - Charlette [...] scheduled. Charlette Starkey RN documented in this encounterMarymount Hospital03-19-2025 Telephone encounter Note * Telephone Encounter - Piper Julian MD - 08/25/2024 9:08 AM EDT Official readings have been normal as have growth. Keep next growth US, can be 3 weeks instead of 4but we don't need to do anything different at this time, conbt. q 4 week growth scans. RLR [facility] Work Phone: 1(489) 933-674003-19-2025 Telephone encounter Note* Telephone Encounter - Idania Murphy RN - 08/25/2024 9:04 AM EDT Patient called back this morning, can you address phone noted below? Idania Murphy RN [facility]03-18-2025 Telephone encounter Note* Telephone Encounter - Charlette Starkey RN - 08/24/2024 4:30 PM EDT 23w3d Patient had echo done today and pediatric cardiology provider noted the amniotic fluid volumeappeared subjectively low. Patient is questioning if she needs sooner appointment than her 09/07/24 f/u anatomy one that is scheduled. Charlette Starkey RN [facility]03-18-2025 NoteHNO ID: [id number] Author: PAMELA HASKINS MD Service: ? Author Type: Physician Type: Progress Notes Filed: 08/24/2024 14:20 Note Text: Dr. Pooja Julian NAME: Melissa Byrne CLINIC Number.: [id number] Date of : 1995 Date of Visit: [...] which included preparing to see the patient, [id number] patient care, completing clinical documentation, obtaining and/or reviewing separately obtained history, performing a medically appropriate examination, counseling and educating the patient/family/caregiver, ordering medications, tests, or procedures, communicating with other HCPs (not separately reported), independently interpreting results (not separately reported), and communicating results to the patient/family/caregiver. I also performed portions of the echocardiogram myself. Sincerely, Dr. Pamela [facility]03-18-2025 History of Present illness Narrative* Pamela Haskins MD - 08/24/2024 12:[address] Pooja Julian NAME: Melissa Byrne CLINIC Number.: [id number] Date of : 1995 Date of Visit: [...] which included preparing to see the patient, [id number] patient care, completing clinical documentation, obtaining and/or reviewing separately obtained history, performing a medically appropriate examination, counseling and educating the pat ient/family/caregiver, ordering medications, tests, or procedures, communicating with other HCPs (not separately reported), independently interpreting results (not separately reported), and communicating results to the patient/family/caregiver. I also performed portions of the echocardiogram myself. Sincerely, Dr. Pamela Haskins documented in this encounterMarymount Hospital03-14-2025 Telephone encounter Note * Telephone Encounter [...] Will review again next week- thanks! NILES [facility]03-14-2025 Miscellaneous Notes* Telephone Encounter - Kelsy [...] next week- thanks! NILES documented in this encounterMarymount Hospital03-12-2025 Telephone encounter Note * Telephone Encounter - Amelia Rose RN - 08/18/2024 10:50 AM EDT Spoke to [facility] pharmacy in [place]. They will transfer the prescription over. [facility]03-12-2025 Miscellaneous Notes* Telephone Encounter - Amelia Rose RN - 08/18/2024 10:50 AM EDT Spoke to [facility] pharmacy in [place]. They will transfer the prescription over. * Telephone Encounter - Krys Arellano - 08/18/2024 9:20 AM EDT Hoda is calling Kelsy Guillermo DO today to request that insulin lispro (HUMALOG KWIKPEN INSULIN) 100 unit/mL be transferred to another [facility], which is in [place]. PH [phone] Patient has been identified by name and birthdate. Duration of symptoms: N/A Person calling: self Call patient at: at home [phone] (home) [phone] (cell) Was an appointment scheduled: No Closing statement: Results or non-symptom based questions: Thank you for calling [facility], your call will be returned within the next business day. Krys East documented in this encounterMarymount Hospital03-12-2025 Telephone encounter Note * Telephone Encounter - Krys Arellano - 08/18/2024 9:20 AM EDT Hoda is calling Kelsy Guillermo DO today to request that insulin lispro (HUMALOG KWIKPEN INSULIN) 100 unit/mL [facility] to another [facility], which is in [place]. [phone] Patient has been identified by name and birthdate. Duration of symptoms: N/A Person calling: self Call patient at: at home [phone] (home) [phone] (cell) Was an appointment scheduled: No Closing statement: Results or non-symptom based questions: Thank you for calling [facility], your call will be returned within the next business day. Krys East [facility]03-08-2025 Telephone encounter Note* Telephone Encounter - [...] review again next week- thanks! Dr Guillermo [facility]03-08-2025 Miscellaneous Notes* Telephone Encounter - Kelsy [...] week- thanks! Dr Guillermo documented in this encounterMarymount Hospital03-04-2025 Telephone encounter Note * Telephone Encounter - Faina Levin MA - 08/10/2024 4:55 PM EST Spoke to patient. Please see mychart encounter. [facility]03-04-2025 Miscellaneous Notes* Telephone Encounter - Faina [...] phone by her side. documented in this encounterMarymount Hospital03-04-2025 Telephone encounter Note * Telephone Encounter - Faina Levin MA - 08/10/2024 4:54 PM EST Spoke to patient and updated her. [facility]03-04-2025 Miscellaneous Notes* Telephone Encounter - Faina [...] 4:02 PM EST Spoke to tech at [facility] and she stated that she spoke [...] KIMMY GESTATIONAL DIABETES 09/20/2024 1:40 PM ENDO [facility] LYDIA ALONZO TC EST KIMMY PATIENT 11/04/2024 11:00 AM ENDO DIAB ED [facility] ALT . Requested Prescriptions Pending Prescriptions [...] - 08/10/2024 1:49 PM EST Spoke to [facility] [place] and they stated that onetouch [facility] and she stated that they did [...] KIMMY GESTATIONAL DIABETES 09/20/2024 1:40 PM ENDO [facility] LYDIA [facility] EST KIMMY PATIENT 11/04/2024 11:00 AM ENDO DIAB ED [facility] ALT . Requested Prescriptions Pending Prescriptions [...] KIMMY GESTATIONAL DIABETES 09/20/2024 1:40 PM ENDO [facility] EST KIMMY PATIENT 11/04/2024 11:00 AM ENDO DIAB ED [facility] . Requested Prescriptions Pending Prescriptions Disp Refills [...] needs scheduled appointment No documented in this encounterMarymount Hospital03-04-2025 Note* Addendum Note - Kelsy Guillermo DO - 08/10/2024 4:35 PM ESTAddended by: KELSY GUILLERMO on: 08/10/2024 04:35 PM Modules accepted: Orders [facility]03-04-2025 Note* Addendum Note - Faina Levin MA - 08/10/2024 4:19 PM ESTAddended by: FAINA LEVIN on: 08/10/2024 04:19 PM Modules accepted: Orders [facility]03-04-2025 Telephone encounter Note* Telephone Encounter - Faina Levin MA - 08/10/2024 4:02 PM EST Spoke to tech at [facility] and she stated that she spoke [...] KIMMY GESTATIONAL DIABETES 09/20/2024 1:40 PM ENDO [facility] EST KIMMY PATIENT 11/04/2024 11:00 AM ENDO DIAB ED [facility] . Requested Prescriptions Pending Prescriptions Disp Refills [...] pool. PSS NOTE: Patient needs scheduled appointment [facility]03-04-2025 Telephone encounter Note* Telephone Encounter - Amada Hills RN - 08/10/2024 3:10 PM EST Faina, the pt thinks she missed your call and wants to speak with you personally, will yo please call her back at the number listed in contacts, she will keep the phone by her side. [facility]03-04-2025 Telephone encounter Note* Telephone Encounter - Faina Levin MA - 08/10/2024 1:49 PM EST Spoke to [facility] and they stated that onetouch prescription was transferred to another [facility] at other [facility] and she stated that they did [...] until 2pm and will call back again. [facility]03-04-2025 Telephone encounter Note* Telephone Encounter - Demetra Morris - 08/10/2024 10:46 AM EST Patient called and states that a prior authorization needs to be done for her blood glucose testingsupplies. Please advise if PA can be started. [facility]03-04-2025 Progress note* Quick Notes - William Gramajo [...] up in 4 weeks. William Gramajo MD [facility]03-04-2025 Miscellaneous Notes* Quick Notes - William Gramajo [...] weeks. 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 Womack, a psychiatrist at [facility] in [place]. Taking Buspar and Prozac. Also sees a therapist Dr. Olmstead at [facility]. She states that she is able and willing to go to the ER or call crisis if she experiences any suicidal thoughts Medical Decision Making: Problems: Moderate: 2+ stable chronic illnesses Risk: Moderate: Moderate risk from testing/treatment Medical Decision Making Level: 4 - Moderate Pooja Latham MD documented in this encounterMarymount Hospital03-04-2025 Instructions* Patient Instructions* Sundeep Salvador MA - 08/10/2024 8:22 AM EST SEQUENTIAL SCREENINGS [facility] offers sequential screenings for women who [...] testing. It will require an appointment withour vein access technician. This is not an ultrasound performed [...] the above symptoms, contact our office at [phone] and ask to speak with anurse. After hours, you can call doctors registry at [phone] OR call [facility] at [phone] ask to have the doctor manager compensation paged. If you consider this an emergency, dial 9-1-3 or go to your nearest emergency department. NEED HELP? Are you dealing with a violent or abusive relationship? Are you a victim of rape or sexual assult? Call [facility] ([place]) 24 hour Crisis Hotline: 480.389.5190 or 681-887-9936. MANUAL Your Guide to a Healthy manual is now on-line. Visit [email or web address] to download your free copy documented in this encounterMarymount Hospital03-02-2025 Telephone encounter Note * Telephone Encounter [...] review again next week- thanks! Dr Guillermo [facility]03-02-2025 Miscellaneous Notes* Telephone Encounter - Kelsy [...] week- thanks! Dr Guillermo documented in this encounterMarymount Hospital02-25-2025 Telephone encounter Note * Telephone Encounter [...] KIMMY GESTATIONAL DIABETES 09/20/2024 1:40 PM ENDO [facility] EST KIMMY PATIENT 11/04/2024 11:00 AM ENDO DIAB ED [facility] . Requested Prescriptions Pending Prescriptions Disp Refills [...] PSS NOTE: Patient needs scheduled appointment No [facility]02-25-2025 Telephone encounter Note* Telephone Encounter - Faina Levin MA - 08/03/2024 2:27 PM EST Requester: Patient Patients last Endocrinology visit occurred 07/26/24. Follow-up evaluation has been established Upcoming Endocrinology Appointments - Next 365 Days Visit Type Date Time Department EST KIMMY GESTATIONAL DIABETES 09/20/2024 1:40 PM ENDO [facility] EST KIMMY PATIENT 11/04/2024 11:00 AM ENDO DIAB ED [facility] . Requested Prescriptions Pending Prescriptions Disp Refills [...] PSS NOTE: Patient needs scheduled appointment No [facility]02-23-2025 Telephone encounter Note* Telephone Encounter - Kelsy [...] review again next week- thanks! Dr Guillermo [facility]02-23-2025 Miscellaneous Notes* Telephone Encounter - Kelsy [...] week- thanks! Dr Guillermo documented in this encounterMarymount Hospital02-17-2025 Instructions* Patient Instructions* Kelsy Guillermo DO [...] 7 weeks for f/u. documented in this encounterMarymount Hospital02-17-2025 History of Present illness Narrative* Kelsy [...] DM during thatpregnancy- had macrosomia, delivered in [place]. She was initially diagnosed with type 2 [...] 10-IRON FUM-FOLIC ORAL Take by mouth. Insulin [place], Disposable, (BD ULTRAFINE III MINI PEN) 31 [...] forward me your blood glucose data weekly ([email or web address])- 3) increase NPH to 80 units [...] which included preparing to see the patient, [id number] patient care, completing clinical documentation, obtaining and/or reviewing separately obtained history, performing a medically appropriate examination, counseling and educating the pat ient/family/caregiver, and ordering medications, tests, or procedures. Kelsy Guillermo DO documented in this encounterMarymount Hospital02-17-2025 NoteMer[facility]02-14-2025 NoteMer[facility]02-14-2025 History of Present illness Narrative* William Gramajo MD - 07/23/2024 11:27 AM EST Melissa Byrne is a 29 year old female who presents for problem visit. HPI: Patient presents with concerns over possible herpes outbreak as had a little vulvar irritation. She denies complaints. OB History Gravida3 Para1 Term1 Preterm0 AB1 Living1 SAB1 IAB0 Ectopic0 Multiple0 Live Births1 Second Facing Baster History LMP: 03/13/2024 (Exact Date), Age at Menarche: 13 Age at First : Age at Menopause: Second Facing Baster History Comments: Sexual Activity: Yes; Male Contraception: [...] 10-IRON FUM-FOLIC ORAL Take by mouth. Insulin [place], Disposable, (BD ULTRAFINE III MINI PEN) 31 [...] discussed with the Patient or Patient's Authorized Third Steel Pourer. As applicable, any other physician, advance practice provider, medical student, or other health professional student that will be observing or involved in the sensitive examination for educational or training purposes was discussed with the Patient or Authorized Third Steel Pourer. The Patient or Authorized Third Steel Pourer has agreed to proceed with the sensitive examination. (Sensitive examination includes inspection and/or palpation of the breasts, pelvis, prostate and anorectal regions). EXAM: LMP 03/13/2024 GENERAL: pleasant, female in no apparent distress PELVIC: external genitalia normal, normal Bartholin's glands, urethra, [place]'s glands, no vulvar lesions ASSESSMENT AND PLAN: Assessment & Plan Vulvar irritation Patient reassured or normal vulvar exam and no evidence of HSV outbreak. Follow up for care. Medical Decision Making: Problems: Low: Acute, uncomplicated illness or injury Risk: Low: Low risk from testing/treatment Medical Decision Making Level: 3 - Low William Gramajo MD documented in this encounterMarymount Hospital02-11-2025 Telephone encounter Note * Telephone Encounter [...] additional 5 units with Higher carb meals (camlio with * if/when you takethe extra insulin so I can see if it is working or not). Will review again next week- thanks! KB [facility]02-11-2025 Miscellaneous Notes* Telephone Encounter - Kelsy [...] next week- thanks! KB documented in this encounterMarymount Hospital02-10-2025 Telephone encounter Note * Telephone Encounter [...] Dept Phone 07/26/2024 2:00 PM KELSY GUILLERMO [facility] Lydia Erickson [phone] 08/10/2024 8:00 AM [employer]I TECH 1 [facility] WSTR MOB [place] [place] [phone] 08/10/2024 8:00 AM [facility]ICE MFM WSTR MOB [facility] [place] [place] [phone] 08/10/2024 9:00 AM ELMER POOJA [facility] [place] [phone] 08/10/2024 9:10 AM WILLIAM GRAMAJO [facility] [place] [phone] 08/24/2024 1:00 PM PAMELA HASKINS [facility] [phone] 08/24/2024 1:[address] [facility] [phone] RX INSTRUCTIONS: Respond to pharmacy only and close encounter Carrie Mata MA [facility] Work Phone: 1(322) 926-511502-10-2025 Miscellaneous Notes* Telephone Encounter - Carrie Mata [...] Dept Phone 07/26/2024 2:00 PM KELSY GUILLERMO [facility] [phone] 08/10/2024 8:00 AM [employer]I TECH 1 [facility] WSTR M[facility] [place] [phone] 08/10/2024 8:00 AM [facility] MFM WSTR MOB [facility] [place] [phone] 08/10/2024 9:00 AM POOJA LATHAM [facility] [place] [phone] 08/10/2024 9:10 AM WILLIAM GRAMAJO [facility] [place] [phone] 08/24/2024 1:00 PM PAMELA HASKINS [facility] [phone] 08/24/2024 1:[address] [facility] [phone] RX INSTRUCTIONS: Respond to pharmacy only and close encounter Carrie Mata MA documented in this encounterMarymount Hospital02-05-2025 Telephone encounter Note * Telephone Encounter [...] Will review again next week- thanks! KB [facility]02-05-2025 Miscellaneous Notes* Telephone Encounter - Kelsy [...] next week- thanks! KB documented in this encounterMarymount Hospital02-04-2025 Progress note* Quick Notes - William [...] on aspirin at bedtime William Gramajo MD [facility]02-04-2025 Miscellaneous Notes* Quick Notes - William [...] bedtime William Gramajo MD documented in this encounterMarymount Hospital02-04-2025 NoteMer[facility]02-04-2025 History of Present illness Narrative* Pooja [...] Monthly growth US testing at 32 weeks AIR TWISTER WINDER H/O macrosomia in infant in prior , [...] 13, 2024 10:53 AM documented in this encounterMarymount Hospital02-04-2025 Instructions* Patient Instructions* Juana Terrazas RN - 07/13/2024 9:46 AM EST SEQUENTIAL SCREENINGS [facility] offers sequential screenings for women who [...] testing. It will require an appointment withour vein access technician. This is not an ultrasound performed [...] the above symptoms, contact our office at [phone] and ask to speak with anurse. After hours, you can call doctors registry at [phone] OR call [facility] at [phone] ask to have the doctor manager compensation paged. If you consider this an emergency, dial 9-2 or go to your nearest emergency department. NEED HELP? Are you dealing with a violent or abusive relationship? Are you a victim of rape or sexual assult? Call [facility] ([place]) 24 hour Crisis Hotline: 792.513.3851 or 842-332-6827. MANUAL Your Guide to a Healthy manual is now on-line. Visit [email or web address] to download your free copy documented in this encounterMarymount Hospital01-26-2025 Telephone encounter Note * Telephone Encounter [...] Will review again next week- thanks! KB [facility]01-26-2025 Miscellaneous Notes* Telephone Encounter - Kelsy [...] next week- thanks! KB documented in this encounterMarymount Hospital01-24-2025 Telephone encounter Note * Telephone Encounter - William Gramajo MD - 07/02/2024 10:08 AM EST Noted William Gramajo MD [facility] Work Phone: 1(424) 285-129601-24-2025 Miscellaneous Notes* Telephone Encounter - William Gramajo [...] furtheradvice. Charlette Starkey RN documented in this encounterMarymount Hospital01-24-2025 Telephone encounter Note * Telephone Encounter [...] Only call with furtheradvice. Charlette Starkey RN [facility]01-20-2025 Telephone encounter Note* Telephone Encounter - Keshav Loving MD - 06/28/2024 8:49 AM EST Agree with recommendations thanks [facility] Work Phone: 1(834) 618-606401-20-2025 Miscellaneous Notes* Telephone Encounter - Keshav Loving [...] advice. Charlette Starkey RN documented in this encounterMarymount Hospital01-20-2025 Telephone encounter Note * Telephone Encounter [...] call with further advice. Charlette Starkey RN [facility]01-17-2025 Miscellaneous Notes* Telephone Encounter - Kelsy [...] week- thanks! Dr Guillermo documented in this encounterMarymount Hospital01-17-2025 Telephone encounter Note * Telephone Encounter [...] review again next week- thanks! Dr Guillermo [facility]01-14-2025 Telephone encounter Note* Telephone Encounter - Ezra Crabtree RN - 06/22/2024 8:18 AM EST Called Melissa Byrne and identified by name and date of . Melissa Bynre was informedof negative Non-Invasive Testing (NIPT) results [...] with Primary OB Provider. Ezra Crabtree RN [facility]01-14-2025 Miscellaneous Notes* Telephone Encounter - Ezra Crabtree [...] Provider. Ezra Crabtree RN documented in this encounterMarymount Hospital01-11-2025 Telephone encounter Note * Telephone Encounter [...] review again next week- thanks! Dr Guillermo [facility]01-11-2025 Miscellaneous Notes* Telephone Encounter - Kelsy [...] week- thanks! Dr Guillermo documented in this encounterMarymount Hospital01-08-2025 History of Present illness Narrative* Carrie Larsen RD - 06/16/2024 10:00 AM EST [facility] Medical Nutrition Therapy Visit Type: Virtual: I have discussed the nature of this visit with the patient which will occur via [facility] (Phone, Virtual Visit) and she agrees to proceed with this interaction. I have communicated my name and active licensure. The patient's identity and physical location wereverified at the time of this visit. Either the patient or their legal housing management representative has been informed of the risks [...] 10-IRON FUM-FOLIC ORAL Take by mouth. Insulin [place], Disposable, (BD ULTRAFINE III MINI PEN) 31 [...] 191 lbs Pre- BMI: 34.9 TW lbs [place] [facility] Weight Gain Recommendations for : [...] Larsen M.S., MEHNAZ, RASHMI documented in this encounterMarymount Hospital01-08-2025 NoteMercy [facility]01-07-2025 NoteMer[facility]01-07-2025 History of Present illness Narrative* Pooja Latham MD - 06/15/2024 1:37 PM EST Images from the original note were not included. Senior Education Specialist [employer] OUTPATIENT VISIT DATE June 15, 2024 OUTPATIENT VISIT TYPE CONSULT REFERRING PROVIDER: Zayda Parker APRN.BUSINESS OBJECTS DEVELOPER Recommendations from today's consultation will be conveyed through the electronic medical record. History of Present Illness: 29 year old at 13w3d with Estimated Date of Delivery: 12/18/24 presenting for consultation with Maternal- Medicine at the [facility] in the setting of sub-optimally controlled [...] around age 12-14. She is followed by Career Coordinator Dr. Guillermo. She was last seen in [...] 10-IRON FUM-FOLIC ORAL Take by mouth. Insulin [place], Disposable, (BD ULTRAFINE III MINI PEN) 31 [...] shows: - Single, live, intrauterine . - [place] rump length measurement is consistent with the [...] Lymph 1.00 - 4.00 k/uL 2.83 Abs Gordon <0.87 k/uL 0.37 Abs Eosin <0.46 k/uL [...] cardiovascular systems. She was counseled that the [place] [employer] recommends an A1c of less [...] [x] 10.5 -> 7.9% Relevant Orders ECHO AIR TWISTER WINDER H/O macrosomia in in prior , currently [...] which included preparing to see the patient, [id number] patient care, completing clinical documentation, counseling and educating the patient/family/caregiver, and communicating results to the patient/family/caregiver. Pooja Latham MD June 15, 2024 3:33 PM documented in this encounterMarymount Hospital01-06-2025 Telephone encounter Note * Telephone Encounter - Kelsy Guillermo DO - 06/14/2024 4:56 PM EST Rx sent KB [facility]01-06-2025 Miscellaneous Notes* Telephone Encounter - Kelsy Guillermo DO - 06/14/2024 4:56 PM EST Rx sent KB documented in this encounterMarymount Hospital01-03-2025 Telephone encounter Note * Telephone Encounter [...] Will review again next week- thanks! KB [facility]01-03-2025 Miscellaneous Notes* Telephone Encounter - Kelsy [...] next week- thanks! KB documented in this encounterMarymount Hospital12-30-2024 Instructions* Patient Instructions* Kelsy Guillermo DO [...] 8 weeks for f/u. documented in this encounterMarymount Hospital12-30-2024 History of Present illness Narrative* Kelsy [...] DM during thatpregnancy- had macrosomia, delivered in [place]. She was initially diagnosed with type 2 [...] third trimester 12/12/2016 12/23/16 - admitted to [place] for glucoregulation, likely will need delivery at 37 weeks - KJ 12/12/2016 She is a Type 2 diabetic and started Insulin during the .Last HGB A1c 6.9 on 11/14/2016.She sees an barrel lathe operator, Dr Asif. Her records have been faxed here during the visit and are sent to [address] Gramajo review. TKRN January 14, 2017 EFW is approx 95%. Monitor closely, cons with care elsewhere, antepartum 12/12/2016 12/12/2016Patient is transferring care [facility] She states she has moved from [place] to [place] and wishes to be seen here.There is some notations by her previous doctor ofnon-compliance issues with keeping appointments and diabetic diet/Insulin dosages. She states she was seen at the [facility] 11/18 for decreased movement and then again [...] 10-IRON FUM-FOLIC ORAL Take by mouth. Insulin [place], Disposable, (BD ULTRAFINE III MINI PEN) 31 [...] forward me your blood glucose data weekly ([email or web address])- we will get you CGM [...] which included preparing to see the patient, jmcm-rl-rtyi patient care, completing clinical documentation, obtaining and/or reviewing separately obtained history, performing a medically appropriate examination, counseling and educating the pat ient/family/caregiver, and ordering medications, tests, or procedures. Kelsy Guillermo DO documented in this encounterMarymount Hospital12-30-2024 NoteMer[facility]12-30-2024 NoteHNO ID: [id number] Author: FAINA LEVIN MA Service: ? Author Type: Spiral Weaver Type: Procedures Filed: 06/07/2024 15:02 Note Text:[facility]12-30-2024 Procedure note* Faina Levin MA - 06/07/2024 2:14 PM ESTProcedure(s): EXTERNAL INTERNIST, CGM SYS Images from the original note were not included. [facility]12-30-2024 Procedure note* Faina Levin MA - 06/07/2024 2:14 PM ESTProcedure(s): EXTERNAL INTERNIST, CGM SYS Images from the original note were not included. documented in this encounterMarymount Hospital12-28-2024 Telephone encounter Note * Telephone Encounter [...] are going next week- thanks! Dr Guillermo [facility]12-28-2024 Miscellaneous Notes* Telephone Encounter - Kelsy [...] week- thanks! Dr Guillermo documented in this encounterMarymount Hospital12-24-2024 Telephone encounter Note * Telephone Encounter [...] are going next week- thanks! Dr Guillermo [facility]12-24-2024 Miscellaneous Notes* Telephone Encounter - Kelsy [...] week- thanks! Dr Guillermo documented in this encounterMarymount Hospital12-18-2024 Telephone encounter Note * Telephone Encounter - Amelia Rose RN - 05/26/2024 2:28 PM EST A PA for Humalog submitted and was approved. Spoke to patient and advised. She can use the voucher as well. [facility]12-18-2024 Miscellaneous Notes* Telephone Encounter - Amelia [...] Please review and advise. documented in this encounterMarymount Hospital12-18-2024 Telephone encounter Note * Telephone Encounter [...] get her Humalog. Please review and advise. [facility]12-18-2024 Progress note* Quick Notes - Krys Kulkarni [...] Unknown. No results found Krys Kulkarni MD [facility]12-18-2024 Miscellaneous Notes* Quick Notes - Krys Kulkarni [...] found Krys Kulkarni MD documented in this encounterMarymount Hospital12-18-2024 Instructions* Patient Instructions* Gino Wood MA - 05/26/2024 9:50 AM EST SEQUENTIAL SCREENINGS [facility] offers sequential screenings for women who [...] testing. It will require an appointment withour vein access technician. This is not an ultrasound performed [...] the above symptoms, contact our office at [phone] and ask to speak with anurse. After hours, you can call doctors registry at [phone] OR call [facility] at [phone] ask to have the doctor manager compensation paged. If you consider this an emergency, dial 8-1-9 or go to your nearest emergency department. NEED HELP? Are you dealing with a violent or abusive relationship? Are you a victim of rape or sexual assult? Call [facility] [place] ([place]) 24 hour Crisis Hotline: 340.228.9733 or 152-946-3205. MANUAL Your Guide to a Healthy manual is now on-line. Visit [facility].org/HealthyPregnancyGuide to download your free copy documented in this encounterMarymount Hospital12-17-2024 Telephone encounter Note * Telephone Encounter - Charlette Starkey RN - 05/25/2024 10:15 AM EST Spoke to patient. She has not vomited since last week. Feeling slightly better and hasn't had that many low blood sugars since calling last week. Appetite still minimal. She is trying to eat small frequent snacks. Aware PA will be submitted for Dimple Doughs. Scheduled appt for tomorrow with JG. Charlette Starkey RN [facility]12-17-2024 Miscellaneous Notes* Telephone Encounter - Charlette [...] advise. Charlette Starkey RN documented in this encounterMarymount Hospital12-13-2024 Hospital Discharge instructions* Discharge Instructions* Reza Dyer DO - 05/21/2024 8:33 PM EST Call OB on Friday for follow-up appointment. * Attachments The following attachments cannot be sent through Care Everywhere. * The Second Month (Estonian) documented in this encounterWilson [facility] Work Phone: 1(369) 714-932912-13-2024 Emergency department Note* Reza Dyer DO - [...] 05/21/242035 Abdominal pain during in first trimester ([facility]) No data recorded Medical Decision Making Labs Reviewed HUMAN CHORIONIC GONADOTROPIN, SERUM QUANTITATIVE - Abnormal HCG, Beta-Quantitative 67,800 (*) Narrative: Total HCG measurement is performed using the Anson Nonabox Access Immunoassay which detects intact HCG and free beta HCG subunit. This test is not indicated for use as a tumor marker. HCG testing is performed using a different test methodology at [facility] than other [facility]. Direct result comparison should only [...] Color, Urine Appearance, Urine Turbid (*) Specific [place], Urine 1.029 pH, Urine 6.0 Protein, Urine [...] Abnormality Status --------- ------ Urinalysis with Reflex C...[[id number]] Abnormal Final result Extra Urine Bolton Tube[[id number]] In process Please view results for these [...] Care: Appropriate for discharge and follow-up with AIR TWISTER WINDER. Procedure Procedures Reza Dyer DO 05/21/242036 documented in this [facility] Work Phone: 1(962) 871-890812-13-2024 Physician Emergency department Note* Reza Dyer DO [...] 05/21/242035 Abdominal pain during in first trimester ([facility]) No data recorded Medical Decision Making Labs Reviewed HUMAN CHORIONIC GONADOTROPIN, SERUM QUANTITATIVE - Abnormal HCG, Beta-Quantitative 67,800 (*) Narrative: Total HCG measurement is performed using the Anson Silva Access Immunoassay which detects intact HCG and free beta HCG subunit. This test is not indicated for use as a tumor marker. HCG testing is performed using a different test methodology at [facility] than other [facility]. Direct result comparison should only be [...] Color, Urine Appearance, Urine Turbid (*) Specific [place], Urine 1.029 pH, Urine 6.0 Protein, Urine [...] Abnormality Status --------- ------ Urinalysis with Reflex C...[[id number]] Abnormal Final result Extra Urine Bolton Tube[[id number]] In process Please view results for these [...] Care: Appropriate for discharge and follow-up with AIR TWISTER WINDER. Procedure Procedures Reza Dyer DO 05/21/242036 [facility] Work Phone: [phone]) 218-320312-12-2024 Telephone encounter Note* Telephone Encounter - Krys Murcia RN - 05/20/2024 10:00 AM EST Left message for patient to call office. Review below recommendations. RX for Diclegis was sent in today. Received message from pharmacy that this needs Prior Auth. Krys Murcia RN [facility]12-12-2024 Telephone encounter Note* Telephone Encounter - Piper [...] get to there. . Piper Julian MD [facility]12-12-2024 Telephone encounter Note* Telephone Encounter - Charlette [...] office too. Please advise. Charlette Starkey RN [facility]12-09-2024 Telephone encounter Note* Telephone Encounter - Amelia Rose RN - 05/17/2024 11:48 AM EST Spoke to patient and advised about insulin taking. No further questions for now. [facility]12-09-2024 Miscellaneous Notes* Telephone Encounter - Amelia Rose RN - 05/17/2024 11:48 AM EST Spoke to patient and advised about insulin taking. No further questions for now. documented in this encounterMarymount Hospital12-09-2024 Telephone encounter Note * Telephone Encounter - Kelsy Guillermo DO - 05/17/2024 11:09 AM EST Reviewed BG data- responded as follows: Hi Hoda - your sensor average is 193 mg/dL. I would recommend that you do the following: increase NPH to 32 units at bedtime increase Humalog to 15 units prior to each meal. Will review again on friday thanks! NILES [facility]12-09-2024 Miscellaneous Notes* Telephone Encounter - Kelsy Guillermo DO - 05/17/2024 11:09 AM EST Reviewed BG data- responded as follows: Hi Hoda - your sensor average is 193 mg/dL. I would recommend that you do the following: increase NPH to 32 units at bedtime increase Humalog to 15 units prior to each meal. Will review again on friday thanks! NILES documented in this encounterMarymount Hospital12-03-2024 NoteMer[facility] Health [facility]rbana [facility]12-03-2024 Procedure note* Ana Sawyer MSW - 05/11/2024 4:09 PM EST Leeanne met with patient to review social service needs and social service assistance options. Patient notes that she signed up for WIC. Patient also notes signing up for PIPP and [employer] Housing voucher. Patient notes that she is attending parenting classes through [facility]. Sw and patient also discussed reaching out to 180 for help with housing options. Patient reports that where she lives in [place] does not allow for children. Sw called [...] security statements. Patient and Sw also discussed [employer] as well at [facility]. Sw wrote down [place] address and [facility] address and contact info for patient. Patient also noted that she [facility]. Patient has this direct number for any further assistance needs. Patient also noted that when she left this office that she would go down to 180 and see what housing supportive service resources they may be able to offer. [facility]12-03-2024 Procedure note* Ana Sawyer MSW - 05/11/2024 4:09 PM EST Sw met with patient to review social service needs and social service assistance options. Patient notes that she signed up for WIC. Patient also notes signing up for PIPP and [employer] Housing voucher. Patient notes that she is attending parenting classes through [facility]. Sw and patient also discussed reaching out to 180 for help with housing options. Patient reports that where she lives in [place] does not allow for children. Sw called [...] security statements. Patient and Sw also discussed [employer] as well at [facility]. Sw wrote down [place]'s address and [address] address and contact info for patient. Patient also noted that she sees counselor at [facility]. Patient has this direct number for any further assistance needs. Patient also noted that when she left this office that she would go down to 180 and see what housing supportive service resources they may be able to offer. documented in this encounterMarymount Hospital12-01-2024 Telephone encounter Note * Telephone Encounter [...] BG data again friday thanks Dr Guillermo [facility]12-01-2024 Miscellaneous Notes* Telephone Encounter - Kelsy [...] AM thanks Dr Guillermo documented in this encounterMarymount Hospital11-29-2024 Note* Addendum Note - Zayda Parker APRN.CNP - 05/07/2024 10:36 AM ESTAddended by: ZAYDA PARKER on: 05/07/2024 10:36 AM Modules accepted: Orders [facility]11-29-2024 Miscellaneous Notes* Addendum Note - Zayda Parker APRN.CNP - 05/07/2024 10:36 AM ESTAddended by: ZAYDA PARKER on: 05/07/2024 10:36 AM Modules accepted: Orders * Addendum Note - Sundeep Salvador MA - 05/07/2024 10:25 AM ESTAddended by: SUNDEEP SALVADOR on: 05/07/2024 10:25 AM Modules accepted: Orders documented in this encounterMarymount Hospital11-29-2024 Note* Addendum Note - Sundeep Salvador MA - 05/07/2024 10:25 AM ESTAddended by: SUNDEEP SALVADOR on: 05/07/2024 10:25 AM Modules accepted: Orders [facility]11-29-2024 Instructions* Patient Instructions* Zayda Parker APRN.CNP - 05/07/2024 9:01 AM EST Images from the original note were not included. Please select the following link to access the [facility] Your Guide to a Healthy . [email or web address]/healthypregnancyguide MORNING SICKNESS IN by Estela Villa M.D. for [employer] As you may already know, morning sickness can often be more appropriately called evening sickness or vjaxf-qcemci-iw-the-day sickness. While there are the arabella few, [...] medication, Doxylamine, is currently marketed as an iykq-zuw-zrepcph sleeping pill. Ask your practitioner if creating a vitamin B6/Doxylaminecombination with mnra-fbs-bvxdxns medications would be safe for you. Prescription [...] as Phenergan, Compazine, Reglan [facility] at [facility] Call Behavioral Health Access Line at [phone] to schedule Individual psychotherapy In-person or virtual Wait time for first evaluation may be 12 or more weeks. Wait list spots may be available. Due to the high volume of patients this option is recommended if you are looking for short term acute symptomcoping strategies. 0-346-3-AYIZ0ANZD - [facility] Mental Health Hotline If you are in suicidal crisis, please call or text 8-732-465-TALK ( ) or visit the National Suicide Prevention Lifeline website. mchb.[facility] regional [facility] centera.gov If you are in crisis, call 291 or go to your nearest Emergency Department Here are some links for wonderful Providers here in the community and surrounding areas. Do not hesitate to contact their offices, many are offering virtual visits during this time. Psychotherapy Services outside of [facility] Support International Online Provider Directory https://LicenseStream.ECORE International/ - can assist in finding providers in your area that might be more extensive then the list below. [facility] [place], [place] [address] [place] [address] [address] [facility] [address] [place] [address] [facility] [address] [place] [address] Karen Kaur MD [address] [place], [place] [address] [facility] [address], [address] [place] [address] [facility] Psychiatric Services [facility] [place] [address] [facility] Counseling Services [place] / [place] [phone]/ [phone] Nancy Saba [address] [facility] [phone] Robinson of Counseling and Mediation [place] / Gaby [phone] Behavioral health services of count includes the [facility] [address] [place] [address]/ [place] [phone] Mike Choudhary, ANASTASIA, CLC [facility] Therapy Workshops, telehealth and at home visits. [phone] [facility] counseling [place] 20 locations [place], [place], [place], [place], [place], [place], [place], [facility], [place], [place], [place], [place], [place], [place], [facility], [place], [place] ,[facility], [place], [place],[facility], [facility], [place], [facility], [facility], [place] www.Nitol Solar [phone] Psychotherapy resources outside of [facility] are listed below Advanced TeleSensors Psychotherapy Web: https://www.ReGenX Biosciences/ Support International Online Provider Directory https://BevyUp/ [facility] https://BlueArc/ LicenseStream for Behavioral Health and Wellness Web: https://Cimagine Media/ Vicept Therapeutics for Effective Living Web: https://www.DealDashliving.ECORE International/ LifeStance Web: https://Sun Animatics.ECORE International/location/community health/[place]/ Signature Health Web: https://www.signatureunion county general hospital.org/ [facility] Web: https://Varick Media Management.org/ Recovery Resources Mental health and substance abuse help Web: https://www.iTiffin.Peer.im & RESOURCES Support International Direct peer support and connection to professional resources Non-Emergency Helpline Phone: / Text: [phone] Web: https://www..net/ Online Provider Directory: https://BevyUp/ Online Support Meetings: https://www..net/get-help/yil-mxijkt-iabzxds-meetings/ ARON Baby and Pricer Services Web: https://code-laboration/ MotherClassOwl Expert information on medication use during and Text: [phone] Web: https://qianchengwuyou/ NATIONAL REGISTRY FOR PSYCHIATRIC MEDICATIONS Currently studying the safety of antidepressants, ADHD medications and atypical antipsychotics taken during TO PARTICIPATE CALL TOLL-FREE: Web: https://womensmentalhealth.org/research/pregnancyregistry/ Support Groups: [facility]- Follow on facebook Baby Bistro support group led by [facility] department Resilient Mamas - Support Group Trinity Healths.org The POEM support group [phone] Www.poAdBira Networkonline.org Follow on facebook - DEDRICK rivers Online support meetings PSI https://www..net/get-help/lvu-supxbe-phtvdtx-meetings/ [facility] mommy and me virtual support group 11:30-1pm Support for mothers and new babies and toddlers [place] childbirth education: Childbirth @cc.org or call [phone] CRISIS: CRISIS HOTLINE [phone], 911 or go to the nearest [facility] [phone] / [facility] [phone] https://www.beth david hospitalrb.org Crisis text line text the word HOME to 028832 [facility] [address] [facility] [address] www.CloudPhysicsjasonComunitee Brigitte Kwan clinical counseling [address] [address] www.H&R Century [phone] Holding space psychotherapy Maricruz No PORTRAIT STUDIO PHOTOGRAPHER JENNIFER-S [address] [facility] www.Amicus Medicus [phone]/ [place] [phone] They all offer virtual. All work with trauma Support groups Online support meetings PSI https://www..net/get-help/vzc-sbgzcy-gwuwvsd-meetings/ Here are the support groups they offer: Support of parents of 1 to 4 years old children POEM ( Outreach and Encouragement for Moms) offers free support for mothers experiencing depression, anxiety, and other mood and anxiety disorders. Masks are recommended but not required. No pre-registration required. Babies in arms welcome. meetings now take place on the and Friday of each month Location: [facility] [address] [place] [address] Room 122 (library room) 7-8:00 p.m. When you enter the [facility] parking lot off of [address] the entrance door closest to our meeting room is on the front of the building toward the right. For those who are more comfortable with a virtual platform, POEM offers online support group options several days of the week. To register for an online group or to find out more about POEM, website at: https://mhaohio.org/get-help/somzdaco-rzaugf-jhcajt/poem-services/ offer a confidential helpline: private Facebook group is called DEDRICK [facility] Here are the groups they offer: Traumatic childbirth resources: Http://pattch.org/ https://www.Beijing Digital orthodox TechnologyjassonVideonetics Technologiesvalentina.ECORE International/ Name Location (s) Phone # (s) Services Website Holding [employer] Psychotherapy [address] [place], [place] - [phone]; [address] [phone] In-Person GROUPS INDIVIDUAL THERAPY MATERNAL-INFANT MENTAL HEALTH MEDICATION MANAGEMENT PLAY AND ART THERAPY TELETHERAPY https://www.ReGenX Biosciences/services/ [facility]? [address] [place], [place] [address] ? [address], [address] [place], [place] [address] ? WINTERS [address] [place], [place] [address]? Grief Support Groups Individual Grief Counseling Spiritual Care Memorial Events https://chataignier.[facility].org/grief-services [facility] [address] [place], [place] [address]; ; Email: [email or web address]@Polar Women's Mental Health; Couples Counseling; Trauma (EMDR); Stress Management; Mood and Anxiety Related Disorders- and much more https://www.Virtual Call CentercoOpta Sportsdata/ LifeStance Numerous as they have contract providers: access website to find specific providers nearyou Counseling including CBT and EMDR as well as many more modalities; Medication Management; Telehealth and In-Person https://Anita Margarita/ JobSpice Behavioral [facility] and Wellness [address] [place] [phone]; [phone] Personal, Family and Group Therapy; Psychological Testing and Diagnosis; Medication Management; Life and Career Coaching; Psychoanalysis; Literacy Testing; Yoga and Meditation https://Cimagine Media/ Fit Mind [place] [address] [facility] [address], [place] [address] [address] ; [address] [place] [address], [address] [place] [address]; Office # for both sites: Individual and Couples Counseling https://www.Bio-Intervention Specialists.ECORE International/paymentinsurance.html OCD & Anxiety [facility] [address], [address], [place] [address]; Specialize in Cognitive-Behavioral Therapy (CBT) for the treatment of anxiety disorders across the lifespan. TELEHEALTH ONLY. https://ocdandanxietycentuGenius Technology/faqs [facility] [address] [facility] [address]th [place], [address] [place] [address] [facility] [place], [address] [place] [address] [place], [address] [place] [address] [place], [address], [id number] [place] [address] [place], [address] [address] [place], [place], [id number] Transportation Services To minimize patient barriers, [facility] provides transportation services to patients who [...] assistance Substance abuse treatment Medication assisted treatment https://www.[facility].org/mental-health/ [facility] OFFICE AT [facility] [address] [place] [address] [facility] OFFICE [address] [place] [address] [facility] OFFICE [address] [place] [address] TO OFFICE (at [facility]) [address] [place] [address] [facility] EXCHANGE PROGRAM & HIV SCREENING [address] [place] [address] [place] EXCHANGE PROGRAM [address] [place] [address] Behavioral Health Urgent Care: [facility] Counseling Indvidual and Group Medication Management Case Management benefits applications housing assistance Substance abuse treatment Medication assisted treatment Employment Services/ Job Training https://theHotel Tablet Themesio.org/ Recovery Resources [address] [place], [place] [address]: P: [phone] [address] [facility] [address], [place] [address] P: [phone] Our services include: Addiction Mental Health Treatment Assessment Psychiatry Medical Care Employment Housing Drug and Alcohol Prevention HIV/AIDS Prevention https://www.recres.org/ [facility] [place] [address] [place] [id number] [address] [place], [place] [address] [address] [place] [address] [place] [address] [facility] [address] [place] [address] [place] [address] [place] [address] [place] [address] TMS Therapy/ Counseling Psychocological Testing for ADHD Medication Management In-Person/ Telemedicine [email or web address] [facility] [address], [place] [address] Neuropsychological Testing For ADHD [email or web address] [facility] Office [address] [place], [place] [id number] [address] [id number] [address] [id number] Providing sxrp-ox-dzzh and telehealth services. Adult Case Management Community Education and Prevention Employment Outpatient Treatment - Counseling & Psychotherapy Psychiatric Services [email or web address] [facility] [address] [address] [address] [facility]) [address] [place] [address] Virtual Appointments! Now offering safe and convenient virtual client appointments to anyone in [place]! Individual Therapy Couples/Relationship Therapy Trauma/EMDR Therapy Art Therapy Play Therapy Returned Goods Receiving Clerk Support: Parenting Skills, Parent Child Interaction Therapy, Parent Interaction Therapy Meditation Dietitian/Gaming Floor Supervisor Services Group Therapy Yoga [email or web address] Nohemy Stokes [phone] Private Practice: Telehealth Only Specializes in EMDR [...] or smoking cessation program, such as the PSYCHIATRIC Smoking Cessation Program. For more information, please [...] smoke. (This information is provided by the [facility] and is not intended to replace the medical advice of your doctor or health care provider. Please consult your health care provider for advice about a specific medical condition. For additional written health information, please call the Cancer Answer Line at [facility] [place] Friday - Friday 8-4:30 for assistance: [phone]. Or [email or web address]/) From [facility]'s Tobacco Cessation website: Our comprehensive smoking [...] help you with your financial plan. Contact [phone] for more information. [place] Tobacco Program Visit [email or web address]/en-[place]/ or call 5-709-WPPK-NOW documented in this encounterMarymount Hospital11-26-2024 History of Present illness Narrative* Jamari [...] with other nicotine-induced disorder documented in this [facility] Work Phone: [phone] 277-673211-25-2024 Nurse Note* Amelia Rose RN - 05/03/2024 [...] Time spent on patient education: 35 minutes. [facility]11-25-2024 Nurse Note* Amelia Rose RN - 05/03/2024 [...] device upload, data review, and data sharing: Fin[employer] -Other topics taught: OK to shower/bathe, avoid [...] patient education: 35 minutes. documented in this encounterMarymount Hospital11-25-2024 Instructions* Patient Instructions* Radha, Kelsy L, DO - 05/03/2024 2:42 PM EST 1) check your sugars fasting (60-90 mg/dL) and 2 hours post meal (less than 120 mg/dL) 2) forward me your blood glucose data weekly ([email or web address])- we will get you CGM (sensor)- you should write your numbers down fasting, and 2 hour post meal- and send me these data each friday. 3) stop Lantus- start NPH as follows: NPH 15 units at bedtime Humalog 6 units prior to each meal. 4) see telecommunications administrator (Carrie Larsen) virtual visit 5) see me in 4 weeks (virtual visit) documented in this encounterMarymount Hospital11-25-2024 [facility] History of Present illness Narrative* Kelsy [...] during that - had macrosomia, delivered in [place]. She was initially diagnosed with type 2 [...] third trimester 12/12/2016 12/23/16 - admitted to [place] for glucoregulation, likely will need delivery at 37 weeks - KJ 12/12/2016 She is a Type 2 diabetic and started Insulin during the .Last HGB A1c 6.9 on 11/14/2016.She sees an barrel lathe operator, Dr Asif. Her records have been faxed here during the visit and are sent to [address] Gramajo review. TKRN January 14, 2017 EFW is approx 95%. Monitor closely, cons with care elsewhere, antepartum 12/12/2016 12/12/2016Patient is transferring care from [facility]. She states she has moved from [place] to [place] and wishes to be seen here.There is some notations by her previous doctor ofnon-compliance issues with keeping appointments and diabetic diet/Insulin dosages. She states she was seen at the [facility] 11/18 for decreased movement and then again [...] forward me your blood glucose data weekly ([email or web address])- we will get you CGM (sensor)- you should write your numbers down fasting, and 2 hour post meal- and send me these data each friday. 3) stop Lantus- start NPH as follows: NPH 15 units at bedtime Humalog 6 units prior to each meal. 4) see telecommunications administrator (Carrie Larsen) virtual visit 5) see me [...] which included preparing to see the patient, tdke-gm-gbmp patient care, completing clinical documentation, obtaining and/or reviewing separately obtained history, performing a medically appropriate examination, counseling and educating the pat ient/family/caregiver, and ordering medications, tests, or procedures. Kelsy Guillermo DO documented in this encounterMarymount Hospital11-25-2024 Telephone encounter Note * Telephone Encounter [...] sees a therapist Dr. Olmstead at [facility]. Her next ap pointment there is [...] FYI. Call back only if further advice [facility]11-25-2024 Miscellaneous Notes* Telephone Encounter - Brenda [...] sees a therapist Dr. Olmstead at the [facility]. Her next ap pointment there is [...] only if further advice documented in this encounterMarymount Hospital11-25-2024 Telephone encounter Note * Telephone Encounter - Ana Sawyer MSW - 05/03/2024 10:54 AM EST Sw spoke with patient and set up appt for patient to come in to the office and see Sw on 05/11 @12:30 to review social service programs in the community. Patient will come to see Leeanne at her office at [facility]. [facility]11-25-2024 Miscellaneous Notes* Telephone Encounter - Ana Sawyer MSW - 05/03/2024 10:54 AM EST Sw spoke with patient and set up appt for patient to come in to the office and see Sw on 05/11 @12:30 to review social service programs in the community. Patient will come to see Leeanne at her office at [facility]. documented in this encounterMarymount Hospital11-25-2024 NoteMer[facility]11-25-2024 History of Present illness Narrative* Zayda Parker APRN.REYES - 05/03/2024 10:13 AM EST Images from the original note were not included. Transformation Coach offered: Patient declines. INITIAL OB ASSESSMENT HPI: Melissa is a 29 year old White here to establish Obstetrical Care. Patient's last menstrual period was 03/13/2024 (exact date). from OB Dating Form. was unplanned but accepted, plans on keeping Complaints: (!) Pain on urination - resolved (treated for UTI and HSV outbreak 04/18/2024 at [facility]) OB History T1 L1 SAB1 IAB0 [...] harming myself has occurred to me. Never Orient Depression Scale Total 19 Feeling nervous, anxious [...] third trimester 12/12/2016 12/23/16 - admitted to [place] for glucoregulation, likely will need delivery at 37 weeks - KJ 12/12/2016 She is a Type 2 diabetic and started Insulin during the .Last HGB A1c 6.9 on 11/14/2016.She sees an barrel lathe operator, Dr Asif. Her records have been faxed here during the visit and are sent to [address] Gramajo review. TKRN January 14, 2017 EFW is approx 95%. Monitor closely, cons with care elsewhere, antepartum 12/12/2016 12/12/2016Patient is transferring care from [facility]. She states she has moved from [place] to [place] and wishes to be seen here.There is some notations by her previous doctor ofnon-compliance issues with keeping appointments and diabetic diet/Insulin dosages. She states she was seen at the [facility] 11/18 for decreased movement and then again [...] to each meal. 5 Each 11 Insulin [place], Disposable, (BD ULTRAFINE III MINI PEN) 31 gauge x 3/16 4 times/day 150 Each 5 Blood-Glucose Sensor (Anita MargaritaSTYLE ZOLTAN 3 PLUS SENSOR) candice Use as [...] discussed with the Patient or Patient's Authorized Third Steel Pourer. As applicable, any other physician, advance practice provider, medical student, or other health professional student that will be observing or involved in the sensitive examination for educational or training purposes was discussed with the Patient or Authorized Third Steel Pourer. The Patient or Authorized Third Steel Pourer has agreed to proceed with the sensitive [...] medications? Yes Pt states she abuse ETOH [id number] In the past month have you drunk [...] plus performing a brief intervention. Zayda Parker APRN.BUSINESS OBJECTS DEVELOPER ASSESSMENT: 29 year old at 7w6d wks gestational age PLAN: 1) Patient oriented to practice. Patient given new OB orientation folder. Discussed nutrition, folic acid supplementation, dietary guidelines, exercise, smoking, alcohol, caffeine, and drug use. Discussed gestational weight gain guidelines. Discussed routine OB labs including STD/HIV. Discussed how to access Your guide to a health and the Circular Saw Filer. Discussed hemoglobin electrophoresis. Patient: Declines Reviewed midwifery and cruise coordinator services that are available. 2) Screening: Hemoglobin [...] weeks): [] Consent [] Contraception - [] Livestock Sales Representative Third trimester (36-40 weeks): [] GBS [] Presentation - [] Scheduled [] yes - Hibiclens, pre-op instructions, CBC, T&S ordered [] no [] H&P Pre-Existing Type 2 Diabetes Mellitus in in First Trimester - 05/07/2024 Comment: May 07, 2024 Hemoglobin A1C 10.5 on 05/03 Uncontrolled. Under care of Dr. Guillermo - amberly on 05/03/24 6 units of Humalog prior to meals 15 units of NPH at bedtime Planning for telecommunications administrator visit with Carrie Larsen Echo [] EKG [] Eye Exam [x] CMP [x] Hemoglobin A1C [x] 10.5 MFM consult placed. Unplanned - 05/07/2024 Comment: May 07, 2024 Patient states this is an unplanned . Patient unsure of paternity of baby. She states it could be her live-in boyfriend or her ex-. She plans on keeping the baby. Zayda Parker APRN.BUSINESS OBJECTS DEVELOPER Obesity Affecting in First Trimester - 05/07/2024 Comment: May 07, 2024 Pre BMI 31 Zayda Parker APRN.BUSINESS OBJECTS DEVELOPER History of Herpes Genitalis - 05/07/2024 Comment: Treated for HSV outbreak 04/18/2024 at [facility]. Plan for suppression therapy at 36 weeks. To notify with outbreaks. Zayda Parker APRN.BUSINESS OBJECTS DEVELOPER H/O Macrosomia in Infant in Prior , Currently - 05/07/2024 Comment: May 07, 2024 10 lb 2oz at 37w4d Zayda Parker APRN.BUSINESS OBJECTS DEVELOPER History of Polyhydramnios - 05/07/2024 Comment: 2017 delivery. Zayda Parker APRN.BUSINESS OBJECTS DEVELOPER History of Bipolar Disorder - 05/07/2024 History of Depression - 12/12/2016 Comment: May 07, 2024 Has history of bipolar depression diagnosed in 2014. She currently sees Dr. Womack, a psychiatrist at [facility] in [place]. States that she recently had an appointment with him and has an upcoming appointment in June. Patient states he is aware that she is and has discussed psychiatric medications during . Taking Buspar and Prozac. Also sees a therapist Dr. Olmstead at the [facility]. Her next appointment there is May [...] states that she did abuse alcohol from [id number]. Denies any alcohol use this . Zayda [...] placed. Zayda Parker APRN.CNP documented in this encounterMarymount Hospital11-22-2024 Telephone encounter Note * Telephone Encounter - Tee Li RN - 04/30/2024 11:10 AM EST Reason for Call: Patient seeking care advice for elevated blood glucose, is , and she is not scheduled to see Endocrinology or OB until next week. Patient confirmed her [facility] PCP is currently managing her [...] day Protocols used: Diabetes - High Blood Basrb-LJECR-QT [facility]11-22-2024 Miscellaneous Notes* Telephone Encounter - Tee Li RN - 04/30/2024 11:10 AM EST Reason for Call: Patient seeking care advice for elevated blood glucose, is , and she is not scheduled to see Endocrinology or OB until next week. Patient confirmed her [facility] PCP is currently managing her diabetes. Outcome: Patient confirmed she will send message and/or call PCP office today to [facility] and make them aware that [...] day Protocols used: Diabetes - High Blood Vhpne-ZSPIG-SW documented in this encounterMarymount Hospital11-20-2024 History of Present illness Narrative* Joanie Hurtado [...] scheduled to see her OB through the [facility] in May, has a ultrasound scheduled in [place] next week on May 03 and is scheduled to see her primary care provider Dr. Byrne on May 04. She will report effectiveness of medication to Dr. Byrne on her visit. She reports no signs or symptoms of complication at this time. No vaginalbleeding, abdominal or back pain. She did state that around the 3-week gestation phase she had an ultrasound at [facility] which did not detect but showed [...] days Less than 8 weeks gestation of ([facility]) documented in this encounterWilson Memorial Hospital Work Phone: [phone]) 177-363611-15-2024 Telephone encounter Note* Telephone Encounter - Sis [...] advising patient to email Dr. Ca at [email or web address]. [facility]11-15-2024 Miscellaneous Notes* Telephone Encounter - Sis [...] advising patient to email Dr. Ca at [email or web address]. documented in this encounterMarymount Hospital11-11-2024 Telephone encounter Note * Telephone Encounter - Zayda Parker APRN.CNP - 04/19/2024 8:43 AM EST Noted. Zayda Parker APRN.CNP [facility]11-11-2024 Miscellaneous Notes* Telephone Encounter - Zayda [...] EH. Krys Murcia RN documented in this encounterMarymount Hospital11-11-2024 Telephone encounter Note * Telephone Encounter - Krys Murcia RN - 04/19/2024 8:37 AM EST LMP 10/ Approximately 5w2d. Patient seen at ER yesterday. She was diagnosed with HSV outbreak and UTI. She was prescribed Keflex and Acyclovir. Wanted our office to be aware before her 05/07 NOB with EH. Krys Murcia RN [facility]11-10-2024 Emergency department Note* Angy Staples Guera, ASSISTANT WAREHOUSE MANAGER-BUSINESS OBJECTS DEVELOPER - 04/18/2024 6:44 PM EST Chief Complaint [...] and concern for . Reports LMP 03/13/24. [id number]. She has been experiencing thin white discharge [...] Urine Yellow Appearance, Urine Turbid (*) Specific [place], Urine 1.048 (*) pH, Urine 6.0 Protein, [...] performed using a different test methodology at [facility] than other [facility]. Direct result comparison should only be made within the same method. C. TRACHOMATIS + N. GONORRHOEAE, AMPLIFIED - Normal Neisseria gonorrhea,Amplified Not Detected Chlamydia trachomatis, Amplified Not Detected URINE CULTURE URINALYSIS WITH REFLEX CULTURE AND MICROSCOPIC Narrative: The following orders were created for panel order Urinalysis with Reflex Culture and Microscopic. Procedure Abnormality Status --------- ------ Urinalysis with Reflex C...[[id number]] Abnormal Final result Extra Urine Bolton Tube[[id number]] Please view results for these tests on [...] outbreak RORY Patel 04/18/242139 documented in this [facility] Work Phone: 1(973) 227-253611-10-2024 Physician Emergency department Note* RORY Patel - [...] and concern for . Reports LMP 03/13/24. [id number]. She has been experiencing thin white discharge [...] Urine Yellow Appearance, Urine Turbid (*) Specific [place], Urine 1.048 (*) pH, Urine 6.0 Protein, [...] HCG measurement is performed using the Anson Silva Access Immunoassay which detects intact HCG and free beta HCG subunit. This test is not indicated for use as a tumor marker. HCG testing is performed using a different test methodology at [facility] than other [facility]. Direct result comparison should only be made within the same method. C. TRACHOMATIS + N. GONORRHOEAE, AMPLIFIED - Normal Neisseria gonorrhea,Amplified Not Detected Chlamydia trachomatis, Amplified Not Detected URINE CULTURE URINALYSIS WITH REFLEX CULTURE AND MICROSCOPIC Narrative: The following orders were created for panel order Urinalysis with Reflex Culture and Microscopic. Procedure Abnormality Status --------- ------ Urinalysis with Reflex C...[[id number]] Abnormal Final result Extra Urine Bolton Tube[[id number]] Please view results for these tests on [...] #2 herpes simplex outbreak RORY Patel 04/18/240 [facility] Work Phone: 1([phone]) 470-255911-07-2024 Telephone encounter Note* Telephone Encounter - Julia Cardona RN - 04/15/2024 3:52 PM EST Patient has appt - closing encounter. Julia Cardona RN [facility]11-07-2024 Miscellaneous Notes* Telephone Encounter - Julia Cardona RN - 04/15/2024 3:52 PM EST Patient has appt - closing encounter. Julia Cadrona RN * Telephone Encounter - Idania Murphy [...] Pelvic pain? Was seen in ED in [facility] yesterday for sharp left sided pain and [...] to: self Call patient at: at home [phone] (home) [phone] (cell) Payor: [employer]ICARE / Plan: [facility] MEDICARE / Product Type: Medicare / Paulo Hodges documented in this encounterMarymount Hospital11-07-2024 Telephone encounter Note * Telephone Encounter - Idania Murphy RN - 04/15/2024 2:00 PM EST Left message to call office. PSS: Please attempt to call patient also to schedule New OB. Thank you. Idania Murphy RN [facility]11-07-2024 Telephone encounter Note* Telephone Encounter - Julia Cardona RN - 04/15/2024 11:03 AM EST Name and identified. LMP? 03/13/24 4w5d When did you have a + test? This week PNV? Not yet Pelvic pain? Was seen in ED in [facility] yesterday for sharp left sided pain and [...] schedulers in this office. Julia Cardona RN [facility]11-07-2024 NoteDischarge [address]charge Summary [facility] [address] [place] [id number] 04/14/2024 Patient: MELISSA KAUR Sex: Female : 1995 Age: 29y Thank you for visiting [facility]. You have been evaluated today by [...] by patient. Follow-up with: Channing Nixon MD, [facility], [facility], , [address] [place] [address]. Follow up in four days even if well. Call for an appointment. Reason for referral: evaluation and treatment. Summary of care provided to patient. Jon Calvert MD, [place] [facility], [facility], Phone: [phone], [address] [place] [address]. Follow up in four days even if well. Call for an appointment. Reason for referral: evaluation and treatment. Summary of care provided to patient. You have been given the following additional information: 1 of 5 Discharge Instructions Patient Signature Facility Third Steel Pourer Date/Time General Instructions with ExitWriter [facility] [address] [place] [address]. [place] [phone] 04/14/2024 Patient: MELISSA KAUR Sex: Female : 1995 Age: 29y Thank you for visiting [facility]. You have been evaluated today by [...] MD, [facility], [facility] Care, , [address] [place] [address]. Follow up in four days even if well. Call for an appointment. Reason for referral: evaluation and treatment. Summary of care provided to patient. Jon Calvert MD, [place] [facility], [facility], Phone: [phone], [address] [place], [place] 2 of 5 Discharge Instructions [id number]. Follow up in four days even if [...] Stay away from alc (more content not included)...[facility] 04-14-2024 Telephone encounter Note* Telephone Encounter - Julia Cardona RN - 04/14/2024 8:34 AM EST Call placed to patient to triage for new OB appt. Left message for patient to call back Julia Cardona RN [facility]11-06-2024 Telephone encounter Note* Telephone Encounter - [...] to: self Call patient at: at home [phone] (home) [phone] (cell) Payor: [employer]ICARE / Plan: [employer] MEDICARE / Product Type: Medicare / Paulo Hodges [facility]08-16-2024 History of Present illness Narrative* Jamari Byrne [...] lipoidica F/u 3 months documented in this [facility] Work Phone: 1(214) 426-108207-18-2024 History of Present illness Narrative* Jamari Byrne [...] 4 times per day documented in this encounterWilson Memorial Hospital Work Phone: 1([phone]) 286-476604-08-2024 History of Present illness Narrative* Jamari Byrne [...] 10 days transmitter good for 90 days Dialysis Patient Care Technician used instead of smart phone Trulicity 1.5 [...] minutes after Hyperglycemia due to diabetes mellitus ([facility]) - metFORMIN (Glucophage) 1,000 mg tablet; Take 1 tablet (1,000 mg) by mouth 2 times a day. - glipiZIDE (Glucotrol) 5 mg tablet; Take 1 tablet (5 mg) by mouth 2 times a day. Exercise-induced asthma - albuterol 90 mcg/actuation inhaler; INHALE 1 TO 2 PUFFS EVERY 6 HOURS NEEDED documented in this [facility] Work Phone: 1(978) 816-728403-12-2024 History of Present illness Narrative* Mary Blackwell PA - 08/19/2023 10:20 AM EDT This note was created using CardioMEMSriter. Subjective Melissa Kaur is a 28 year [...] third trimester 12/12/2016 12/23/16 - admitted to [place] for glucoregulation, likely will need delivery at 37 weeks - KJ 12/12/2016 She is a Type 2 diabetic and started Insulin during the .Last HGB A1c 6.9 on 11/14/2016.She sees an barrel lathe operator, Dr Asif. Her records have been faxed here during the visit and are sent to [address] Gramajo review. TKRN January 14, 2017 EFW is approx 95%. Monitor closely, cons with care elsewhere, antepartum 12/12/2016 12/12/2016Patient is transferring care from [facility]. She states she has moved from [place] to [place] and wishes to be seen here.There is some notations by her previous doctor ofnon-compliance issues with keeping appointments and diabetic diet/Insulin dosages. She states she was seen at the [facility] 11/18 for decreased movement and then again [...] ER evaluation. BUDDY Mendoza documented in this encounterMarymount Hospital02-01-2024 History of Present illness Narrative* Sigrid [...] a day. Hyperglycemia due to diabetes mellitus ([facility]) - Basic Metabolic Panel; Future - Hemoglobin A1C; Future documented in this encounterWilson Memorial Hospital Work Phone: [phone]) 470-551312-01-2023 History of Present illness Narrative* Jamari Byrne [...] this visit: Hyperglycemia due to diabetes mellitus ([facility]) - Dexcom G4 [place] transmitter (Dexcom G6 Transmitter) device; Change as directed - Hemoglobin A1C; Future - Basic Metabolic Panel; Future F/u 2 months documented in this encounterWilson Memorial Hospital Work Phone: 1(278) 706-561612-01-2023 Instructions* Patient Instructions* Jamari Byrne MD - 05/09/2023 11:20 AM EST 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 Washington 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 OBJECTS DEVELOPER documented in this [facility] Work Phone: 1(723) 518-534210-09-2023 History of Present illness Narrative* Jamari Byrne [...] HOURS NEEDED Hyperglycemia due to diabetes mellitus ([facility]) - dulaglutide (Trulicity) 1.5 mg/0.5 mL pen [...] units at bedtime subcutaneous - Dexcom G4 [place] fire fighters dispatcher (Dexcom G6 Dialysis Patient Care Technician) [facility]; Use as instructed documented in this [facility] Work Phone: 1(255) 142-263307-07-2023 History of Present illness Narrative* Jamari Byrne [...] this visit: Hyperglycemia due to diabetes mellitus ([facility]) - Dexcom G4 wales transmitter (Dexcom G6 Transmitter) device; Apply every 10 days - insulin glargine (Lantus U-100 Insulin) 100 unit/mL injection; Inject 10 Units under the skin once daily at bedtime. Take as directed per insulin instructions. - pen needle, diabetic 31 gauge x 5/16 needle; Inject nightly - Hemoglobin A1C; Future Other orders - [facility] Up [facility] Phone: 1(660) 238-582903-11-2023 Instructions* Patient Instructions* Lazara Jon DO - 08/17/2022 7:51 PM EST test is negative. Treating presumptively for vaginal yeast infection with prescription for Diflucan. Test for sexually transmitted diseases is pending and you will be notified if there are any positive results. * Attachments The following attachments cannot be sent through Care Everywhere. * Vaginal Yeast Infection (Estonian) documented in this [id number] History of Present illness Narrative* Lazara Jon DO - 08/17/2022 7:05 PM EST PATIENT NAME: Melissa Kaur [facility]: [address] [id number] DATE OF VISIT: 08/17/2022 DATE OF : [...] it is wet prep. Patient uses the [facility] system and will look for her results there. We will call her additionally, if there are positive test that needed a change in treatment plan. Lazara Jon 08/17/2022 documented in this [id number] History of Present illness Narrative* father is [...] when manic * ros * no cp -[facility] Work Phone: 1([phone]) 598-736507-13-2022 History of Present illness NarrativePatient is a 26-year-old who comes in for a test of cure for trichomoniasis. Patient was here last week for test of cure for chlamydia. Patient reports that her partner has been treated and they havenot engaged in coitus since her diagnosis. Patient has no concerns todayRapt Work Phone: 1([phone]) 196-722504-01-2022 History of Present illness NarrativePatient is a 26-year-old who comes in for 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 Patient reports she has not been [...] She reports that she has recently started [employer] Work Phone: [phone]) 505-665807-09-2021 History of Present illness Narrative* Patient is [...] cutting.She is following with Dr Jackson at [facility] and seeing her counselor. She is currently [...] po bid and metformin 1000mg po bid. [facility] Work Phone: 1([phone]) 437-535007-26-2017 History of Past illness Narrative* Problem Noted Date Diagnosed Date Resolved Date Polyhydramnios 01/01/2017 07/11/2023 Threatened premature labor in third trimester 12/27/19 17 07/11/2023 Overview: December 26, 2016 Received betamethasone on 12/23 and 12/24/16. Piper Julian MD LGA (large for gestational age) infant 12/23/2016 07/11/2023 Overview: 12/23/16 - >95% Gestational proteinuria, third trimester 12/20/2016 07/11/2023 Overview: 12/20/16 - 24hr urine from [facility] on 12/13/16 was 323mg, BP & preE labs normal - KJ Gestational diabetes 12/20/2016 024 with care elsewhere, antepartum 12/12/2016 07/11/2023 Overview: 12/12/2016Patient is transferring care from [facility]. She states she has moved from [place] to [place] and wishes to be seen here.There is some notations by her previous doctor of non-compliance issues with keeping appointments and diabetic diet/Insulin dosages. She states she was seen at the [facility] 11/18 for decreased movement and then again about the 3rd week of October for threatened PTL. She states she was given Brethine in the hospital and sent home on no medications. She was last seen by her OB in [place] yesterday for [place] contractions. She denies any bleeding or LOF. Baby has been active. Some [place] contractions occasionally. Discussed with Dr Schulte and patient advised to monitor pain. If increases to call/come in. Kick counts discussed. TKRN Pre-existing type 2 diabetes mellitus in in third trimester 12/12/2016 07/11/2023 Overview: 12/23/16 - admitted to [place] for glucoregulation, likely will need delivery at 37 weeks - KJ 12/12/2016 She is a Type 2 diabetic and started Insulin during the .Last HGB A1c 6.9 on 11/14/2016.She sees an barrel lathe operator, Dr Asif. Her records have been faxed here during the visit and are sent to [address] Gramajo review. TKRN January 14, 2017 EFW is approx 95%. Monitor closely, consider early delivery per MFM. Piper Julian MD documented as of this encounter (statuses as of 08/19/2023) [facility] Yeast vaginitis- Primary Late menses Other disorder of menstruation and other abnormal bleeding from female genital tract Vaginal discharge Leukorrhea, not specified as infective [facility] Diagnosis Hyperglycemia due to diabetes mellitus (CMS/HCC) documented in [facility] encounter [facility] Work Phone: Evaluation note* Diagnosis Exercise-induced asthma- Primary Exercise induced bronchospasm Hyperglycemia due to diabetes mellitus (CMS/HCC) documented in [facility] encounter [facility] Work Phone: Evaluation note* Diagnosis Hyperglycemia due to diabetes mellitus (CMS/HCC) documented in this encounter [facility] Work Phone: Evaluation note* Diagnosis Necrobiosis lipoidica- Primary Degenerative skin disorder Hyperglycemia due to diabetes mellitus (CMS/HCC) documented in [facility] encounter [facility] Work Phone: Evaluation note* Diagnosis Pain, dental- Primary Unspecified disorder of the teeth and supporting structures [facility] Diagnosis Sebaceous cyst- Primary Hyperglycemia due to diabetes mellitus ([facility]/HCC) Exercise-induced asthma Exercise induced bronchospasm documented in [facility] encounter [facility] Work Phone: Evaluation note* Diagnosis Urinary tract infection in mother during first trimester of ([facility]-HCC)- Primary Herpes simplex vulvovaginitis documented in [facility] encounter [facility] Work Phone: Evaluation note* Diagnosis Bacterial vaginosis- Primary Unspecified vaginitis and vulvovaginitis Less than 8 weeks gestation of ([facility]) documented in [facility] encounter [facility] Work Phone: Evaluation note* Diagnosis Type 2 diabetes mellitus complicating , antepartum, first trimester- Primary Insulin controlled gestational diabetes mellitus (GDM) in first trimester High-risk , first trimester [facility]* Diagnosis Bipolar depression (Multi)- Primary Bipolar I disorder, most recent episode (or current) depressed, unspecified Hyperglycemia due to diabetes mellitus (Multi) Cigarette nicotine dependence with other nicotine-induced disorder documented [facility] Work Phone: Evaluation note* Diagnosis [...] of the cervix [facility]* Diagnosis Insulin controlled gestational diabetes mellitus (GDM) in first trimester documented in this encounter [facility]* Diagnosis Bacterial vaginosis- Primary Vaginitis and vulvovaginitis, unspecified documented in this encounter [facility] note* Diagnosis Insulin controlled gestational diabetes mellitus (GDM) in first trimester documented in this encounter [facility] note* Diagnosis Necrobiosis lipoidica- Primary Degenerative skin disorder Hyperglycemia due to diabetes mellitus (Multi) documented in [facility] Work Phone: Evaluation note* Diagnosis Abdominal pain during in first trimester ([facility]HS-HCC)- Primary documented in [facility] encounter [facility] Work Phone: Evaluation note* Diagnosis Exercise-induced asthma (HHS-HCC)- Primary Exercise induced bronchospasm Hyperglycemia due to diabetes mellitus (Multi) Bipolar depression (Multi) Bipolar I disorder, most recent episode (or current) depressed, unspecified Necrobiosis lipoidica Degenerative skin disorder documented in [facility] encounter [facility] Work Phone: Evaluation note* Diagnosis [...] of unspecified chromosome documented in this encounter [facility] note* Diagnosis Insulin controlled gestational diabetes mellitus (GDM) in first trimester [facility] Insulin controlled gestational diabetes mellitus (GDM) in first trimester documented in this encounter [facility] note* Diagnosis Insulin controlled gestational diabetes mellitus (GDM) in first trimester documented in this encounter [facility] note* Diagnosis Encounter for screening for malformation using ultrasound- Primary 13 weeks gestation of state, incidental documented in this encounter [facility] note* Diagnosis H/O macrosomia in infant in prior , currently with other poor obstetric history Pre-existing type 2 diabetes mellitus in in first trimester Diabetes mellitus of mother, complicating , childbirth, or the puerperium, unspecified as to episode of care History of pre-eclampsia Personal history of other genital system and obstetric disorders [facility]* Diagnosis Pre-existing type 2 diabetes mellitus in in second trimester- Primary Diabetes mellitus of mother, complicating , childbirth, or the puerperium, unspecified as to episode of care [facility]* Diagnosis Influenza A- Primary Influenza with other respiratory manifestations documented [facility] Work Phone: Evaluation note* Diagnosis [...] at 32 weeks [facility]* Diagnosis Pre-existing type 2 [...] in first trimester [facility]* Diagnosis Pre-existing type 2 [...] in first trimester [facility]* Diagnosis Pre-existing type 2 [...] vulva and perineum [facility]* Diagnosis Pre-existing type 2 [...] , second trimester [facility]* Diagnosis Pre-existing type 2 [...] for anatomic survey [facility]* Diagnosis Pre-existing type 2 [...] from chart review documented in this encounter [facility] note* Diagnosis Pre-existing type 2 diabetes [...] OB DIP B/O documented in this encounter [facility] note* Diagnosis Pre-existing type 2 diabetes [...] for anatomic survey documented in this encounter [facility] note* Diagnosis Pre-existing type 2 diabetes [...] in first trimester [facility] Diagnosis Pre-existing type 2 diabetes [...] in first trimester documented in this encounter [facility] note* Diagnosis Pre-existing type 2 diabetes [...] 1 [O35.9XX1]- Primary [facility]* Diagnosis Pre-existing type 2 diabetes mellitus in in first trimester (HCC)- Primary Diabetes mellitus of mother, complicating , childbirth, or the puerperium, unspecified as to episode of care History of pre-eclampsia Personal history of other genital system and obstetric disorders H/O macrosomia in infant in prior , currently (HCC) with other poor obstetric history 17 weeks gestation of ([facility]) state, incidental Encounter for screening for malformation using ultrasound ([facility]) Obesity affecting in first trimester, unspecified obesity type ([facility])- Primary Herpes simplex type 2 (HSV-2) infection affecting , antepartum, unspecified trimester ([facility]) Pre-existing type 2 diabetes mellitus in in first trimester ([facility]) Diabetes mellitus of mother, complicating , childbirth, or the puerperium, unspecified as to episode of care 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 Encounter for supervision of high risk in first trimester, antepartum ([facility]) 21 weeks gestation of ([facility]) state, incidental Pre-existing type 2 diabetes mellitus in in first trimester ([facility])- Primary Diabetes mellitus of mother, complicating , childbirth, or the puerperium, unspecified as to episode of care Obesity affecting in first trimester, unspecified obesity type ([facility]) History of pre-eclampsia Personal history of other genital system and obstetric disorders H/O macrosomia in in prior , currently ([facility]) with other poor obstetric history History of bipolar disorder Personal history of affective disorder 21 weeks gestation of ([facility]) state, incidental Encounter for anatomic survey ([facility]) Encounter for anatomic survey Pre-existing type 2 diabetes mellitus in in first trimester ([facility])- Primary Diabetes mellitus of mother, complicating , childbirth, or the puerperium, unspecified as to episode of care Obesity affecting in first trimester, unspecified obesity type ([facility]) [facility] Diagnosis Exercise-induced asthma Exercise induced bronchospasm Bipolar depression (Multi) Bipolar I disorder, most recent episode (or current) depressed, unspecified documented [facility] Work Phone: Evaluation note* Diagnosis Pre-existing type 2 diabetes mellitus in in first trimester ([facility])- Primary Diabetes mellitus of mother, complicating , childbirth, or the puerperium, unspecified as to episode of care History of pre-eclampsia Personal history of other genital system and obstetric disorders H/O macrosomia in infant in prior , currently ([facility]) with other poor obstetric history 17 weeks gestation of ([facility]) state, incidental Encounter for screening for malformation using ultrasound ([facility]) Obesity affecting in first trimester, unspecified obesity type ([facility])- Primary Herpes simplex type 2 (HSV-2) infection affecting , antepartum, unspecified trimester ([facility]) Pre-existing type 2 diabetes mellitus in in first trimester ([facility]) Diabetes mellitus of mother, complicating , childbirth, or the puerperium, unspecified as to episode of care 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 Encounter for supervision of high risk in first trimester, antepartum ([facility]) 21 weeks gestation of ([facility]) state, incidental Pre-existing type 2 diabetes mellitus in in first trimester ([facility])- Primary Diabetes mellitus of mother, complicating , childbirth, or the puerperium, unspecified as to episode of care Obesity affecting in first trimester, unspecified obesity type ([facility]) History of pre-eclampsia Personal history of other genital system and obstetric disorders H/O macrosomia in infant in prior , currently ([facility]) with other poor obstetric history History of bipolar disorder Personal history of affective disorder 21 weeks gestation of ([facility]) state, incidental Encounter for anatomic survey ([facility]) Encounter for anatomic survey with uncertain dates in first trimester ([facility]) [facility] Diagnosis Pre-existing type 2 diabetes mellitus in in first trimester ([facility])- Primary Diabetes mellitus of mother, complicating , childbirth, or the puerperium, unspecified as to episode of care History of pre-eclampsia Personal history of other genital system and obstetric disorders H/O macrosomia in infant in prior , currently ([facility]) with other poor obstetric history 17 weeks gestation of ([facility]) state, incidental Encounter for screening for malformation using ultrasound ([facility]) Obesity affecting in first trimester, unspecified obesity type ([facility])- Primary Herpes simplex type 2 (HSV-2) infection affecting , antepartum, unspecified trimester ([facility]) Pre-existing type 2 diabetes mellitus in in first trimester ([facility]) Diabetes mellitus of mother, complicating , childbirth, or the puerperium, unspecified as to episode of care 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 Encounter for supervision of high risk in first trimester, antepartum ([facility]) 21 weeks gestation of ([facility]) state, incidental Pre-existing type 2 diabetes mellitus in in first trimester ([facility])- Primary Diabetes mellitus of mother, complicating , childbirth, or the puerperium, unspecified as to episode of care Obesity affecting in first trimester, unspecified obesity type ([facility]) History of pre-eclampsia Personal history of other genital system and obstetric disorders H/O macrosomia in infant in prior , currently ([facility]) with other poor obstetric history History of bipolar disorder Personal history of affective disorder 21 weeks gestation of ([facility]) state, incidental Encounter for anatomic survey ([facility]) Encounter for anatomic survey complication before ([facility])- Primary Other specified complication, antepartum [facility]* Diagnosis Pre-existing type 2 diabetes mellitus in in first trimester ([facility])- Primary Diabetes mellitus of mother, complicating , childbirth, or the puerperium, unspecified as to episode of care History of pre-eclampsia Personal history of other genital system and obstetric disorders H/O macrosomia in infant in prior , currently ([facility]) with other poor obstetric history 17 weeks gestation of ([facility]) state, incidental Encounter for screening for malformation using ultrasound ([facility]) Obesity affecting in first trimester, unspecified obesity type ([facility])- Primary Herpes simplex type 2 (HSV-2) infection affecting , antepartum, unspecified trimester ([facility]) Pre-existing type 2 diabetes mellitus in in first trimester ([facility]) Diabetes mellitus of mother, complicating , childbirth, or the puerperium, unspecified as to episode of care 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 Encounter for supervision of high risk in first trimester, antepartum ([facility]) 21 weeks gestation of ([facility]) state, incidental Pre-existing type 2 diabetes mellitus in in first trimester ([facility])- Primary Diabetes mellitus of mother, complicating , childbirth, or the puerperium, unspecified as to episode of care Obesity affecting in first trimester, unspecified obesity type ([facility]) History of pre-eclampsia Personal history of other genital system and obstetric disorders H/O macrosomia in infant in prior , currently ([facility]) with other poor obstetric history History of bipolar disorder Personal history of affective disorder 21 weeks gestation of ([facility]) state, incidental Encounter for anatomic survey ([facility]) Encounter for anatomic survey Screening for diabetes mellitus- Primary Obesity affecting in first trimester, unspecified obesity type ([facility]) Pre-existing type 2 diabetes mellitus in in first trimester ([facility]) Diabetes mellitus of mother, complicating , childbirth, or the puerperium, unspecified as to episode of care Herpes simplex type 2 (HSV-2) infection affecting , antepartum, unspecified trimester ([facility]) 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 Encounter for supervision of high risk in first trimester, antepartum ([facility]) 25 weeks gestation of ([facility]) state, incidental documented in this encounter [facility] note* Diagnosis Pre-existing type 2 diabetes mellitus in in first trimester ([facility])- Primary Diabetes mellitus of mother, complicating , childbirth, or the puerperium, unspecified as to episode of care History of pre-eclampsia Personal history of other genital system and obstetric disorders H/O macrosomia in infant in prior , currently ([facility]) with other poor obstetric history 17 weeks gestation of ([facility]) state, incidental Encounter for screening for malformation using ultrasound ([facility]) Obesity affecting in first trimester, unspecified obesity type ([facility])- Primary Herpes simplex type 2 (HSV-2) infection affecting , antepartum, unspecified trimester ([facility]) Pre-existing type 2 diabetes mellitus in in first trimester ([facility]) Diabetes mellitus of mother, complicating , childbirth, or the puerperium, unspecified as to episode of care 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 Encounter for supervision of high risk in first trimester, antepartum ([facility]) 21 weeks gestation of ([facility]) state, incidental Pre-existing type 2 diabetes mellitus in in first trimester ([facility])- Primary Diabetes mellitus of mother, complicating , childbirth, or the puerperium, unspecified as to episode of care Obesity affecting in first trimester, unspecified obesity type ([facility]) History of pre-eclampsia Personal history of other genital system and obstetric disorders H/O macrosomia in infant in prior , currently ([facility]) with other poor obstetric history History of bipolar disorder Personal history of affective disorder 21 weeks gestation of ([facility]) state, incidental Encounter for anatomic survey ([facility]) Encounter for anatomic survey Type 2 diabetes mellitus during , antepartum, third trimester ([facility])- Primary Insulin controlled gestational diabetes mellitus (GDM) in first trimester ([facility]) High-risk , third trimester ([facility]) [facility] [facility] note* Diagnosis Pre-existing type 2 diabetes mellitus in in first trimester ([facility])- Primary Diabetes mellitus of mother, complicating , childbirth, or the puerperium, unspecified as to episode of care History of pre-eclampsia Personal history of other genital system and obstetric disorders H/O macrosomia in infant in prior , currently ([facility]) with other poor obstetric history 17 weeks gestation of ([facility]) state, incidental Encounter for screening for malformation using ultrasound ([facility]) Obesity affecting in first trimester, unspecified obesity type ([facility])- Primary Herpes simplex type 2 (HSV-2) infection affecting , antepartum, unspecified trimester ([facility]) Pre-existing type 2 diabetes mellitus in in first trimester ([facility]) Diabetes mellitus of mother, complicating , childbirth, or the puerperium, unspecified as to episode of care 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 Encounter for supervision of high risk in first trimester, antepartum ([facility]) 21 weeks gestation of ([facility]) state, incidental Pre-existing type 2 diabetes mellitus in in first trimester ([facility])- Primary Diabetes mellitus of mother, complicating , childbirth, or the puerperium, unspecified as to episode of care Obesity affecting in first trimester, unspecified obesity type ([facility]) History of pre-eclampsia Personal history of other genital system and obstetric disorders H/O macrosomia in in prior , currently ([facility]) with other poor obstetric history History of bipolar disorder Personal history of affective disorder 21 weeks gestation of ([facility]) state, incidental Encounter for anatomic survey ([facility]) Encounter for anatomic survey Procedure not carried out- Primary Procedure not carried out for other reasons Supervision of high risk in second trimester ([facility])- Primary Unspecified high-risk 27 weeks gestation of ([facility]) state, incidental Burning with urination Dysuria Vaginal discharge Leukorrhea, not specified as infective [facility] noteNo assessment information availableWUniversity [facility] Work Phone: Evaluation note* Diagnosis Pre-existing type 2 diabetes mellitus in in first trimester ([facility])- Primary Diabetes mellitus of mother, complicating , childbirth, or the puerperium, unspecified as to episode of care History of pre-eclampsia Personal history of other genital system and obstetric disorders H/O macrosomia in in prior , currently ([facility]) with other poor obstetric history 17 weeks gestation of ([facility]) state, incidental Encounter for screening for malformation using ultrasound ([facility]) Obesity affecting in first trimester, unspecified obesity type ([facility])- Primary Herpes simplex type 2 (HSV-2) infection affecting , antepartum, unspecified trimester ([facility]) Pre-existing type 2 diabetes mellitus in in first trimester ([facility]) Diabetes mellitus of mother, complicating , childbirth, or the puerperium, unspecified as to episode of care 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 Encounter for supervision of high risk in first trimester, antepartum ([facility]) 21 weeks gestation of ([facility]) state, incidental Pre-existing type 2 diabetes mellitus in in first trimester ([facility])- Primary Diabetes mellitus of mother, complicating , childbirth, or the puerperium, unspecified as to episode of care Obesity affecting in first trimester, unspecified obesity type ([facility]) History of pre-eclampsia Personal history of other genital system and obstetric disorders H/O macrosomia in infant in prior , currently ([facility]) with other poor obstetric history History of bipolar disorder Personal history of affective disorder 21 weeks gestation of ([facility]) state, incidental Encounter for anatomic survey ([facility]) Encounter for anatomic survey Supervision of high risk in second trimester ([facility])- Primary Unspecified high-risk 27 weeks gestation of ([facility]) state, incidental Burning with urination Dysuria Vaginal discharge Leukorrhea, not specified as infective HSV (herpes simplex virus) infection Herpes simplex without mention of complication [facility] Diagnosis Pre-existing type 2 diabetes mellitus in in first trimester ([facility])- Primary Diabetes mellitus of mother, complicating , childbirth, or the puerperium, unspecified as to episode of care History of pre-eclampsia Personal history of other genital system and obstetric disorders H/O macrosomia in infant in prior , currently ([facility]) with other poor obstetric history 17 weeks gestation of ([facility]) state, incidental Encounter for screening for malformation using ultrasound ([facility]) Obesity affecting in first trimester, unspecified obesity type ([facility])- Primary Herpes simplex type 2 (HSV-2) infection affecting , antepartum, unspecified trimester ([facility]) Pre-existing type 2 diabetes mellitus in in first trimester ([facility]) Diabetes mellitus of mother, complicating , childbirth, or the puerperium, unspecified as to episode of care 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 Encounter for supervision of high risk in first trimester, antepartum ([facility]) 21 weeks gestation of ([facility]) state, incidental Pre-existing type 2 diabetes mellitus in in first trimester ([facility])- Primary Diabetes mellitus of mother, complicating , childbirth, or the puerperium, unspecified as to episode of care Obesity affecting in first trimester, unspecified obesity type ([facility]) History of pre-eclampsia Personal history of other genital system and obstetric disorders H/O macrosomia in in prior , currently ([facility]) with other poor obstetric history History of bipolar disorder Personal history of affective disorder 21 weeks gestation of ([facility]) state, incidental Encounter for anatomic survey ([facility]) Encounter for anatomic survey BV (bacterial vaginosis)- Primary Vaginitis and vulvovaginitis, unspecified [facility] Diagnosis Pre-existing type 2 diabetes mellitus in in first trimester ([facility])- Primary Diabetes mellitus of mother, complicating , childbirth, or the puerperium, unspecified as to episode of care History of pre-eclampsia Personal history of other genital system and obstetric disorders H/O macrosomia in infant in prior , currently ([facility]) with other poor obstetric history 17 weeks gestation of ([facility]) state, incidental Encounter for screening for malformation using ultrasound ([facility]) Obesity affecting in first trimester, unspecified obesity type ([facility])- Primary Herpes simplex type 2 (HSV-2) infection affecting , antepartum, unspecified trimester ([facility]) Pre-existing type 2 diabetes mellitus in in first trimester ([facility]) Diabetes mellitus of mother, complicating , childbirth, or the puerperium, unspecified as to episode of care 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 Encounter for supervision of high risk in first trimester, antepartum ([facility]) 21 weeks gestation of ([facility]) state, incidental Pre-existing type 2 diabetes mellitus in in first trimester ([facility])- Primary Diabetes mellitus of mother, complicating , childbirth, or the puerperium, unspecified as to episode of care Obesity affecting in first trimester, unspecified obesity type ([facility]) History of pre-eclampsia Personal history of other genital system and obstetric disorders H/O macrosomia in infant in prior , currently ([facility]) with other poor obstetric history History of bipolar disorder Personal history of affective disorder 21 weeks gestation of ([facility]) state, incidental Encounter for anatomic survey ([facility]) Encounter for anatomic survey Supervision of high risk in third trimester ([facility])- Primary Unspecified high-risk History of pre-eclampsia Personal history of other genital system and obstetric disorders 29 weeks gestation of ([facility]) state, incidental Pre-existing type 2 diabetes mellitus in in third trimester ([facility]) Diabetes mellitus of mother, complicating , childbirth, or the puerperium, unspecified as to episode of care 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 Pre-existing type 2 diabetes mellitus in in first trimester ([facility]) Diabetes mellitus of mother, complicating , childbirth, or the puerperium, unspecified as to episode of care Tobacco smoking complicating in first trimester ([facility]) Tobacco use disorder complicating , childbirth, or the puerperium, antepartum condition or complication History of recurrent UTI (urinary tract infection) Personal history of urinary (tract) infection 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, 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, 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 senior living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 ([facility]) Herpes simplex type 2 (HSV-2) infection affecting , antepartum, unspecified trimester ([facility]) * Assessment & Plan Note - Piper [...] test this previous child had testing at [facility] * Assessment & Plan Note [...] (HSV-2) infection affecting , antepartum, unspecified trimester ([facility]) prophylaxis ordered, no outbreaks recently [facility]* Diagnosis Pre-existing type 2 diabetes mellitus in in first trimester ([facility])- Primary Diabetes mellitus of mother, complicating , childbirth, or the puerperium, unspecified as to episode of care History of pre-eclampsia Personal history of other genital system and obstetric disorders H/O macrosomia in in prior , currently ([facility]) with other poor obstetric history 17 weeks gestation of ([facility]) state, incidental Encounter for screening for malformation using ultrasound ([facility]) Obesity affecting in first trimester, unspecified obesity type ([facility])- Primary Herpes simplex type 2 (HSV-2) infection affecting , antepartum, unspecified trimester ([facility]) Pre-existing type 2 diabetes mellitus in in first trimester ([facility]) Diabetes mellitus of mother, complicating , childbirth, or the puerperium, unspecified as to episode of care 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 Encounter for supervision of high risk in first trimester, antepartum ([facility]) 21 weeks gestation of ([facility]) state, incidental Pre-existing type 2 diabetes mellitus in in first trimester ([facility])- Primary Diabetes mellitus of mother, complicating , childbirth, or the puerperium, unspecified as to episode of care Obesity affecting in first trimester, unspecified obesity type ([facility]) History of pre-eclampsia Personal history of other genital system and obstetric disorders H/O macrosomia in infant in prior , currently ([facility]) with other poor obstetric history History of bipolar disorder Personal history of affective disorder 21 weeks gestation of ([facility]) state, incidental Encounter for anatomic survey ([facility]) Encounter for anatomic survey Supervision of high risk in third trimester ([facility])- Primary Unspecified high-risk History of pre-eclampsia Personal history of other genital system and obstetric disorders 29 weeks gestation of ([facility]) state, incidental Pre-existing type 2 diabetes mellitus in in third trimester ([facility]) Diabetes mellitus of mother, complicating , childbirth, or the puerperium, unspecified as to episode of care 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 Pre-existing type 2 diabetes mellitus in in first trimester ([facility]) Diabetes mellitus of mother, complicating , childbirth, or the puerperium, unspecified as to episode of care Tobacco smoking complicating in first trimester ([facility]) Tobacco use disorder complicating , childbirth, or the puerperium, antepartum condition or complication History of recurrent UTI (urinary tract infection) Personal history of urinary (tract) infection 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, 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, 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 ([facility]) Herpes simplex type 2 (HSV-2) infection affecting , antepartum, unspecified trimester ([facility]) Maternal care for (suspected) abnormality and damage, unspecified, fetus 1 ([facility])- Primary documented in this encounter [facility]* Diagnosis Pre-existing type 2 diabetes mellitus in in first trimester ([facility])- Primary Diabetes mellitus of mother, complicating , childbirth, or the puerperium, unspecified as to episode of care History of pre-eclampsia Personal history of other genital system and obstetric disorders H/O macrosomia in infant in prior , currently ([facility]) with other poor obstetric history 17 weeks gestation of ([facility]) state, incidental Encounter for screening for malformation using ultrasound ([facility]) Obesity affecting in first trimester, unspecified obesity type ([facility])- Primary Herpes simplex type 2 (HSV-2) infection affecting , antepartum, unspecified trimester ([facility]) Pre-existing type 2 diabetes mellitus in in first trimester ([facility]) Diabetes mellitus of mother, complicating , childbirth, or the puerperium, unspecified as to episode of care 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 Encounter for supervision of high risk in first trimester, antepartum ([facility]) 21 weeks gestation of ([facility]) state, incidental Pre-existing type 2 diabetes mellitus in in first trimester ([facility])- Primary Diabetes mellitus of mother, complicating , childbirth, or the puerperium, unspecified as to episode of care Obesity affecting in first trimester, unspecified obesity type ([facility]) History of pre-eclampsia Personal history of other genital system and obstetric disorders H/O macrosomia in infant in prior , currently ([facility]) with other poor obstetric history History of bipolar disorder Personal history of affective disorder 21 weeks gestation of ([facility]) state, incidental Encounter for anatomic survey ([facility]) Encounter for anatomic survey Supervision of high risk in third trimester ([facility])- Primary Unspecified high-risk History of pre-eclampsia Personal history of other genital system and obstetric disorders 29 weeks gestation of ([facility]) state, incidental Pre-existing type 2 diabetes mellitus in in third trimester ([facility]) Diabetes mellitus of mother, complicating , childbirth, or the puerperium, unspecified as to episode of care 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 Pre-existing type 2 diabetes mellitus in in first trimester ([facility]) Diabetes mellitus of mother, complicating , childbirth, or the puerperium, unspecified as to episode of care Tobacco smoking complicating in first trimester ([facility]) Tobacco use disorder complicating , childbirth, or the puerperium, antepartum condition or complication History of recurrent UTI (urinary tract infection) Personal history of urinary (tract) infection 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, 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, 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 senior living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 ([facility]) Herpes simplex type 2 (HSV-2) infection affecting , antepartum, unspecified trimester ([facility]) Supervision of high risk in third trimester ([facility])- Primary Unspecified high-risk Pre-existing type 2 diabetes mellitus in in third trimester ([facility]) Diabetes mellitus of mother, complicating , childbirth, or the puerperium, unspecified as to episode of care Herpes simplex type 2 (HSV-2) infection affecting , antepartum, unspecified trimester ([facility]) H/O macrosomia in in prior , currently ([facility]) with other poor obstetric history History of pre-eclampsia Personal history of other genital system and obstetric disorders 31 weeks gestation of ([facility]) state, incidental * Assessment & Plan Note - Whit Morton MD - 10/18/2024 4:08 PM EDT Associated Problem(s): Herpes simplex type 2 (HSV-2) infection affecting , antepartum, unspecified trimester ([facility]) Taking acyclovir * Assessment & Plan Note - Whit Morton MD - 10/18/2024 4:08 PM EDT Associated Problem(s): H/O macrosomia in infant in prior , currently ([facility]) Growth us scheduled * Assessment & Plan Note - Whit Morton MD - 10/18/2024 4:08 PM EDT Associated Problem(s): History of pre-eclampsia Continue ASA [facility] Diagnosis Pre-existing type 2 diabetes mellitus in in first trimester ([facility])- Primary Diabetes mellitus of mother, complicating , childbirth, or the puerperium, unspecified as to episode of care History of pre-eclampsia Personal history of other genital system and obstetric disorders H/O macrosomia in in prior , currently ([facility]) with other poor obstetric history 17 weeks gestation of ([facility]) state, incidental Encounter for screening for malformation using ultrasound ([facility]) Obesity affecting in first trimester, unspecified obesity type ([facility])- Primary Herpes simplex type 2 (HSV-2) infection affecting , antepartum, unspecified trimester ([facility]) Pre-existing type 2 diabetes mellitus in in first trimester ([facility]) Diabetes mellitus of mother, complicating , childbirth, or the puerperium, unspecified as to episode of care 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 Encounter for supervision of high risk in first trimester, antepartum ([facility]) 21 weeks gestation of ([facility]) state, incidental Pre-existing type 2 diabetes mellitus in in first trimester ([facility])- Primary Diabetes mellitus of mother, complicating , childbirth, or the puerperium, unspecified as to episode of care Obesity affecting in first trimester, unspecified obesity type ([facility]) History of pre-eclampsia Personal history of other genital system and obstetric disorders H/O macrosomia in infant in prior , currently ([facility]) with other poor obstetric history History of bipolar disorder Personal history of affective disorder 21 weeks gestation of ([facility]) state, incidental Encounter for anatomic survey ([facility]) Encounter for anatomic survey Supervision of high risk in third trimester ([facility])- Primary Unspecified high-risk History of pre-eclampsia Personal history of other genital system and obstetric disorders 29 weeks gestation of ([facility]) state, incidental Pre-existing type 2 diabetes mellitus in in third trimester ([facility]) Diabetes mellitus of mother, complicating , childbirth, or the puerperium, unspecified as to episode of care 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 Pre-existing type 2 diabetes mellitus in in first trimester ([facility]) Diabetes mellitus of mother, complicating , childbirth, or the puerperium, unspecified as to episode of care Tobacco smoking complicating in first trimester ([facility]) Tobacco use disorder complicating , childbirth, or the puerperium, antepartum condition or complication History of recurrent UTI (urinary tract infection) Personal history of urinary (tract) infection 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, 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, 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 ([facility]) Herpes simplex type 2 (HSV-2) infection affecting , antepartum, unspecified trimester ([facility]) Supervision of high risk in third trimester ([facility])- Primary Unspecified high-risk Pre-existing type 2 diabetes mellitus in in third trimester ([facility]) Diabetes mellitus of mother, complicating , childbirth, or the puerperium, unspecified as to episode of care Herpes simplex type 2 (HSV-2) infection affecting , antepartum, unspecified trimester ([facility]) H/O macrosomia in infant in prior , currently ([facility]) with other poor obstetric history History of pre-eclampsia Personal history of other genital system and obstetric disorders 31 weeks gestation of ([facility]) state, incidental Supervision of high risk in third trimester ([facility])- Primary Unspecified high-risk Pre-existing type 2 diabetes mellitus in in third trimester ([facility]) Diabetes mellitus of mother, complicating , childbirth, [...] METABOLIC PANEL; Future [facility]* Diagnosis Pre-existing type 2 diabetes mellitus in in first trimester ([facility])- Primary Diabetes mellitus of mother, complicating , childbirth, or the puerperium, unspecified as to episode of care History of pre-eclampsia Personal history of other genital system and obstetric disorders H/O macrosomia in in prior , currently ([facility]) with other poor obstetric history 17 weeks gestation of ([facility]) state, incidental Encounter for screening for malformation using ultrasound ([facility]) Obesity affecting in first trimester, unspecified obesity type ([facility])- Primary Herpes simplex type 2 (HSV-2) infection affecting , antepartum, unspecified trimester ([facility]) Pre-existing type 2 diabetes mellitus in in first trimester ([facility]) Diabetes mellitus of mother, complicating , childbirth, or the puerperium, unspecified as to episode of care 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 Encounter for supervision of high risk in first trimester, antepartum ([facility]) 21 weeks gestation of ([facility]) state, incidental Pre-existing type 2 diabetes mellitus in in first trimester ([facility])- Primary Diabetes mellitus of mother, complicating , childbirth, or the puerperium, unspecified as to episode of care Obesity affecting in first trimester, unspecified obesity type ([facility]) History of pre-eclampsia Personal history of other genital system and obstetric disorders H/O macrosomia in infant in prior , currently ([facility]) with other poor obstetric history History of bipolar disorder Personal history of affective disorder 21 weeks gestation of ([facility]) state, incidental Encounter for anatomic survey ([facility]) Encounter for anatomic survey Supervision of high risk in third trimester ([facility])- Primary Unspecified high-risk History of pre-eclampsia Personal history of other genital system and obstetric disorders 29 weeks gestation of ([facility]) state, incidental Pre-existing type 2 diabetes mellitus in in third trimester ([facility]) Diabetes mellitus of mother, complicating , childbirth, or the puerperium, unspecified as to episode of care 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 Pre-existing type 2 diabetes mellitus in in first trimester ([facility]) Diabetes mellitus of mother, complicating , childbirth, or the puerperium, unspecified as to episode of care Tobacco smoking complicating in first trimester ([facility]) Tobacco use disorder complicating , childbirth, or the puerperium, antepartum condition or complication History of recurrent UTI (urinary tract infection) Personal history of urinary (tract) infection 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, 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, 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 senior living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 ([facility]) Herpes simplex type 2 (HSV-2) infection affecting , antepartum, unspecified trimester ([facility]) Supervision of high risk in third trimester ([facility])- Primary Unspecified high-risk Pre-existing type 2 diabetes mellitus in in third trimester ([facility]) Diabetes mellitus of mother, complicating , childbirth, or the puerperium, unspecified as to episode of care Herpes simplex type 2 (HSV-2) infection affecting , antepartum, unspecified trimester ([facility]) H/O macrosomia in infant in prior , currently ([facility]) with other poor obstetric history History of pre-eclampsia Personal history of other genital system and obstetric disorders 31 weeks gestation of ([facility]) state, incidental Supervision of high risk in third trimester ([facility])- Primary Unspecified high-risk Pre-existing type 2 diabetes mellitus in in third trimester ([facility]) Diabetes mellitus of mother, complicating , childbirth, or the puerperium, unspecified as to episode of care Exposure to parvovirus Contact with or exposure to other viral diseases History of pre-eclampsia Personal history of other genital system and obstetric disorders Pre-existing type 2 diabetes mellitus in in first trimester ([facility])- Primary Diabetes mellitus of mother, complicating , childbirth, or the puerperium, unspecified as to episode of care Obesity affecting in first trimester, unspecified obesity type ([facility]) 33 weeks gestation of ([facility]) state, incidental Pre-existing type 2 diabetes mellitus in in third trimester ([facility])- Primary Diabetes mellitus of mother, complicating , childbirth, or the puerperium, unspecified as to episode of care History of pre-eclampsia Personal history of other genital system and obstetric disorders H/O macrosomia in in prior , currently ([facility]) with other poor obstetric history 33 weeks gestation of ([facility]) state, incidental Request for sterilization Herpes simplex type 2 (HSV-2) infection affecting , antepartum, unspecified trimester ([facility]) [facility] Diagnosis Pre-existing type 2 diabetes mellitus in in first trimester ([facility])- Primary Diabetes mellitus of mother, complicating , childbirth, or the puerperium, unspecified as to episode of care History of pre-eclampsia Personal history of other genital system and obstetric disorders H/O macrosomia in in prior , currently ([facility]) with other poor obstetric history 17 weeks gestation of ([facility]) state, incidental Encounter for screening for malformation using ultrasound ([facility]) Obesity affecting in first trimester, unspecified obesity type ([facility])- Primary Herpes simplex type 2 (HSV-2) infection affecting , antepartum, unspecified trimester ([facility]) Pre-existing type 2 diabetes mellitus in in first trimester ([facility]) Diabetes mellitus of mother, complicating , childbirth, or the puerperium, unspecified as to episode of care 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 Encounter for supervision of high risk in first trimester, antepartum ([facility]) 21 weeks gestation of ([facility]) state, incidental Pre-existing type 2 diabetes mellitus in in first trimester ([facility])- Primary Diabetes mellitus of mother, complicating , childbirth, or the puerperium, unspecified as to episode of care Obesity affecting in first trimester, unspecified obesity type ([facility]) History of pre-eclampsia Personal history of other genital system and obstetric disorders H/O macrosomia in infant in prior , currently ([facility]) with other poor obstetric history History of bipolar disorder Personal history of affective disorder 21 weeks gestation of ([facility]) state, incidental Encounter for anatomic survey ([facility]) Encounter for anatomic survey Supervision of high risk in third trimester ([facility])- Primary Unspecified high-risk History of pre-eclampsia Personal history of other genital system and obstetric disorders 29 weeks gestation of ([facility]) state, incidental Pre-existing type 2 diabetes mellitus in in third trimester ([facility]) Diabetes mellitus of mother, complicating , childbirth, or the puerperium, unspecified as to episode of care 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 Pre-existing type 2 diabetes mellitus in in first trimester ([facility]) Diabetes mellitus of mother, complicating , childbirth, or the puerperium, unspecified as to episode of care Tobacco smoking complicating in first trimester ([facility]) Tobacco use disorder complicating , childbirth, or the puerperium, antepartum condition or complication History of recurrent UTI (urinary tract infection) Personal history of urinary (tract) infection 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, 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, 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 ([facility]) Herpes simplex type 2 (HSV-2) infection affecting , antepartum, unspecified trimester ([facility]) Supervision of high risk in third trimester ([facility])- Primary Unspecified high-risk Pre-existing type 2 diabetes mellitus in in third trimester ([facility]) Diabetes mellitus of mother, complicating , childbirth, or the puerperium, unspecified as to episode of care Herpes simplex type 2 (HSV-2) infection affecting , antepartum, unspecified trimester ([facility]) H/O macrosomia in infant in prior , currently ([facility]) with other poor obstetric history History of pre-eclampsia Personal history of other genital system and obstetric disorders 31 weeks gestation of ([facility]) state, incidental Supervision of high risk in third trimester ([facility])- Primary Unspecified high-risk Pre-existing type 2 diabetes mellitus in in third trimester ([facility]) Diabetes mellitus of mother, complicating , childbirth, or the puerperium, unspecified as to episode of care Exposure to parvovirus Contact with or exposure to other viral diseases History of pre-eclampsia Personal history of other genital system and obstetric disorders Pre-existing type 2 diabetes mellitus in in third trimester ([facility])- Primary Diabetes mellitus of mother, complicating , [...] (HSV-2) infection affecting , antepartum, unspecified trimester ([facility]) * Assessment & Plan Note - William [...] macrosomia in infant in prior , currently ([facility]) EFW on growth US shows AGA and expected to be smaller than 1st baby. Growth US with [facility] today. Orders: URINE OB DIP B/O * Assessment & Plan Note - William Gramajo MD - 11/02/2024 11:08 AM EDTAssociated Problem(s): Herpes simplex type 2 (HSV-2) infection affecting , antepartum, unspecified trimester ([facility]) On acyclovir prophylaxis [facility] Diagnosis Pre-existing type 2 diabetes mellitus in in first trimester ([facility])- Primary Diabetes mellitus of mother, complicating , childbirth, or the puerperium, unspecified as to episode of care History of pre-eclampsia Personal history of other genital system and obstetric disorders H/O macrosomia in infant in prior , currently ([facility]) with other poor obstetric history 17 weeks gestation of ([facility]) state, incidental Encounter for screening for malformation using ultrasound ([facility]) Obesity affecting in first trimester, unspecified obesity type ([facility])- Primary Herpes simplex type 2 (HSV-2) infection affecting , antepartum, unspecified trimester ([facility]) Pre-existing type 2 diabetes mellitus in in first trimester ([facility]) Diabetes mellitus of mother, complicating , childbirth, or the puerperium, unspecified as to episode of care 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 Encounter for supervision of high risk in first trimester, antepartum ([facility]) 21 weeks gestation of ([facility]) state, incidental Pre-existing type 2 diabetes mellitus in in first trimester ([facility])- Primary Diabetes mellitus of mother, complicating , childbirth, or the puerperium, unspecified as to episode of care Obesity affecting in first trimester, unspecified obesity type ([facility]) History of pre-eclampsia Personal history of other genital system and obstetric disorders H/O macrosomia in in prior , currently ([facility]) with other poor obstetric history History of bipolar disorder Personal history of affective disorder 21 weeks gestation of ([facility]) state, incidental Encounter for anatomic survey ([facility]) Encounter for anatomic survey Supervision of high risk in third trimester ([facility])- Primary Unspecified high-risk History of pre-eclampsia Personal history of other genital system and obstetric disorders 29 weeks gestation of ([facility]) state, incidental Pre-existing type 2 diabetes mellitus in in third trimester ([facility]) Diabetes mellitus of mother, complicating , childbirth, or the puerperium, unspecified as to episode of care 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 Pre-existing type 2 diabetes mellitus in in first trimester ([facility]) Diabetes mellitus of mother, complicating , childbirth, or the puerperium, unspecified as to episode of care Tobacco smoking complicating in first trimester ([facility]) Tobacco use disorder complicating , childbirth, or the puerperium, antepartum condition or complication History of recurrent UTI (urinary tract infection) Personal history of urinary (tract) infection 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, 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, 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 senior living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 ([facility]) Herpes simplex type 2 (HSV-2) infection affecting , antepartum, unspecified trimester ([facility]) Supervision of high risk in third trimester ([facility])- Primary Unspecified high-risk Pre-existing type 2 diabetes mellitus in in third trimester ([facility]) Diabetes mellitus of mother, complicating , childbirth, or the puerperium, unspecified as to episode of care Herpes simplex type 2 (HSV-2) infection affecting , antepartum, unspecified trimester ([facility]) H/O macrosomia in infant in prior , currently ([facility]) with other poor obstetric history History of pre-eclampsia Personal history of other genital system and obstetric disorders 31 weeks gestation of ([facility]) state, incidental Supervision of high risk in third trimester ([facility])- Primary Unspecified high-risk Pre-existing type 2 diabetes mellitus in in third trimester ([facility]) Diabetes mellitus of mother, complicating , childbirth, or the puerperium, unspecified as to episode of care Exposure to parvovirus Contact with or exposure to other viral diseases History of pre-eclampsia Personal history of other genital system and obstetric disorders Pre-existing type 2 diabetes mellitus in in third trimester ([facility])- Primary Diabetes mellitus of mother, complicating , childbirth, or the puerperium, unspecified as to episode of care History of pre-eclampsia Personal history of other genital system and obstetric disorders H/O macrosomia in infant in prior , currently ([facility]) with other poor obstetric history 33 weeks gestation of ([facility]) state, incidental Request for sterilization Herpes simplex type 2 (HSV-2) infection affecting , antepartum, unspecified trimester ([facility]) Type 2 diabetes mellitus affecting in third trimester, antepartum ([facility])- Primary High-risk , third trimester ([facility]) [facility] Diagnosis Pre-existing type 2 diabetes mellitus in in first trimester ([facility])- Primary Diabetes mellitus of mother, complicating , childbirth, or the puerperium, unspecified as to episode of care History of pre-eclampsia Personal history of other genital system and obstetric disorders H/O macrosomia in in prior , currently ([facility]) with other poor obstetric history 17 weeks gestation of ([facility]) state, incidental Encounter for screening for malformation using ultrasound ([facility]) Obesity affecting in first trimester, unspecified obesity type ([facility])- Primary Herpes simplex type 2 (HSV-2) infection affecting , antepartum, unspecified trimester ([facility]) Pre-existing type 2 diabetes mellitus in in first trimester ([facility]) Diabetes mellitus of mother, complicating , childbirth, or the puerperium, unspecified as to episode of care 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 Encounter for supervision of high risk in first trimester, antepartum ([facility]) 21 weeks gestation of ([facility]) state, incidental Pre-existing type 2 diabetes mellitus in in first trimester ([facility])- Primary Diabetes mellitus of mother, complicating , childbirth, or the puerperium, unspecified as to episode of care Obesity affecting in first trimester, unspecified obesity type ([facility]) History of pre-eclampsia Personal history of other genital system and obstetric disorders H/O macrosomia in infant in prior , currently ([facility]) with other poor obstetric history History of bipolar disorder Personal history of affective disorder 21 weeks gestation of ([facility]) state, incidental Encounter for anatomic survey ([facility]) Encounter for anatomic survey Supervision of high risk in third trimester ([facility])- Primary Unspecified high-risk History of pre-eclampsia Personal history of other genital system and obstetric disorders 29 weeks gestation of ([facility]) state, incidental Pre-existing type 2 diabetes mellitus in in third trimester ([facility]) Diabetes mellitus of mother, complicating , childbirth, or the puerperium, unspecified as to episode of care 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 Pre-existing type 2 diabetes mellitus in in first trimester ([facility]) Diabetes mellitus of mother, complicating , childbirth, or the puerperium, unspecified as to episode of care Tobacco smoking complicating in first trimester ([facility]) Tobacco use disorder complicating , childbirth, or the puerperium, antepartum condition or complication History of recurrent UTI (urinary tract infection) Personal history of urinary (tract) infection 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, 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, 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 senior living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 ([facility]) Herpes simplex type 2 (HSV-2) infection affecting , antepartum, unspecified trimester ([facility]) Supervision of high risk in third trimester ([facility])- Primary Unspecified high-risk Pre-existing type 2 diabetes mellitus in in third trimester ([facility]) Diabetes mellitus of mother, complicating , childbirth, or the puerperium, unspecified as to episode of care Herpes simplex type 2 (HSV-2) infection affecting , antepartum, unspecified trimester ([facility]) H/O macrosomia in infant in prior , currently ([facility]) with other poor obstetric history History of pre-eclampsia Personal history of other genital system and obstetric disorders 31 weeks gestation of ([facility]) state, incidental Supervision of high risk in third trimester ([facility])- Primary Unspecified high-risk Pre-existing type 2 diabetes mellitus in in third trimester ([facility]) Diabetes mellitus of mother, complicating , childbirth, or the puerperium, unspecified as to episode of care Exposure to parvovirus Contact with or exposure to other viral diseases History of pre-eclampsia Personal history of other genital system and obstetric disorders Pre-existing type 2 diabetes mellitus in in third trimester ([facility])- Primary Diabetes mellitus of mother, complicating , childbirth, or the puerperium, unspecified as to episode of care History of pre-eclampsia Personal history of other genital system and obstetric disorders H/O macrosomia in in prior , currently ([facility]) with other poor obstetric history 33 weeks gestation of ([facility]) state, incidental Request for sterilization Herpes simplex type 2 (HSV-2) infection affecting , antepartum, unspecified trimester ([facility]) Type 2 diabetes mellitus during , antepartum, third trimester ([facility])- Primary [facility] Diagnosis Pre-existing type 2 diabetes mellitus in in first trimester ([facility])- Primary Diabetes mellitus of mother, complicating , childbirth, or the puerperium, unspecified as to episode of care History of pre-eclampsia Personal history of other genital system and obstetric disorders H/O macrosomia in in prior , currently ([facility]) with other poor obstetric history 17 weeks gestation of ([facility]) state, incidental Encounter for screening for malformation using ultrasound ([facility]) Obesity affecting in first trimester, unspecified obesity type ([facility])- Primary Herpes simplex type 2 (HSV-2) infection affecting , antepartum, unspecified trimester ([facility]) Pre-existing type 2 diabetes mellitus in in first trimester ([facility]) Diabetes mellitus of mother, complicating , childbirth, or the puerperium, unspecified as to episode of care 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 Encounter for supervision of high risk in first trimester, antepartum ([facility]) 21 weeks gestation of ([facility]) state, incidental Pre-existing type 2 diabetes mellitus in in first trimester ([facility])- Primary Diabetes mellitus of mother, complicating , childbirth, or the puerperium, unspecified as to episode of care Obesity affecting in first trimester, unspecified obesity type ([facility]) History of pre-eclampsia Personal history of other genital system and obstetric disorders H/O macrosomia in in prior , currently ([facility]) with other poor obstetric history History of bipolar disorder Personal history of affective disorder 21 weeks gestation of ([facility]) state, incidental Encounter for anatomic survey ([facility]) Encounter for anatomic survey Supervision of high risk in third trimester ([facility])- Primary Unspecified high-risk History of pre-eclampsia Personal history of other genital system and obstetric disorders 29 weeks gestation of ([facility]) state, incidental Pre-existing type 2 diabetes mellitus in in third trimester ([facility]) Diabetes mellitus of mother, complicating , childbirth, or the puerperium, unspecified as to episode of care 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 Pre-existing type 2 diabetes mellitus in in first trimester ([facility]) Diabetes mellitus of mother, complicating , childbirth, or the puerperium, unspecified as to episode of care Tobacco smoking complicating in first trimester ([facility]) Tobacco use disorder complicating , childbirth, or the puerperium, antepartum condition or complication History of recurrent UTI (urinary tract infection) Personal history of urinary (tract) infection 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, 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, 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 ([facility]) Herpes simplex type 2 (HSV-2) infection affecting , antepartum, unspecified trimester ([facility]) Supervision of high risk in third trimester ([facility])- Primary Unspecified high-risk Pre-existing type 2 diabetes mellitus in in third trimester ([facility]) Diabetes mellitus of mother, complicating , childbirth, or the puerperium, unspecified as to episode of care Herpes simplex type 2 (HSV-2) infection affecting , antepartum, unspecified trimester ([facility]) H/O macrosomia in in prior , currently ([facility]) with other poor obstetric history History of pre-eclampsia Personal history of other genital system and obstetric disorders 31 weeks gestation of ([facility]) state, incidental Supervision of high risk in third trimester ([facility])- Primary Unspecified high-risk Pre-existing type 2 diabetes mellitus in in third trimester ([facility]) Diabetes mellitus of mother, complicating , childbirth, or the puerperium, unspecified as to episode of care Exposure to parvovirus Contact with or exposure to other viral diseases History of pre-eclampsia Personal history of other genital system and obstetric disorders Pre-existing type 2 diabetes mellitus in in third trimester ([facility])- Primary Diabetes mellitus of mother, complicating , childbirth, or the puerperium, unspecified as to episode of care History of pre-eclampsia Personal history of other genital system and obstetric disorders H/O macrosomia in in prior , currently ([facility]) with other poor obstetric history 33 weeks gestation of ([facility]) state, incidental Request for sterilization Herpes simplex type 2 (HSV-2) infection affecting , antepartum, unspecified trimester ([facility]) complication before ([facility]) Other specified complication, [facility] Diagnosis Pre-existing type 2 diabetes mellitus in in first trimester ([facility])- Primary Diabetes mellitus of mother, complicating , childbirth, or the puerperium, unspecified as to episode of care History of pre-eclampsia Personal history of other genital system and obstetric disorders H/O macrosomia in in prior , currently ([facility]) with other poor obstetric history 17 weeks gestation of ([facility]) state, incidental Encounter for screening for malformation using ultrasound ([facility]) Obesity affecting in first trimester, unspecified obesity type ([facility])- Primary Herpes simplex type 2 (HSV-2) infection affecting , antepartum, unspecified trimester ([facility]) Pre-existing type 2 diabetes mellitus in in first trimester ([facility]) Diabetes mellitus of mother, complicating , childbirth, or the puerperium, unspecified as to episode of care 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 Encounter for supervision of high risk in first trimester, antepartum ([facility]) 21 weeks gestation of ([facility]) state, incidental Pre-existing type 2 diabetes mellitus in in first trimester ([facility])- Primary Diabetes mellitus of mother, complicating , childbirth, or the puerperium, unspecified as to episode of care Obesity affecting in first trimester, unspecified obesity type ([facility]) History of pre-eclampsia Personal history of other genital system and obstetric disorders H/O macrosomia in in prior , currently ([facility]) with other poor obstetric history History of bipolar disorder Personal history of affective disorder 21 weeks gestation of ([facility]) state, incidental Encounter for anatomic survey ([facility]) Encounter for anatomic survey Supervision of high risk in third trimester ([facility])- Primary Unspecified high-risk History of pre-eclampsia Personal history of other genital system and obstetric disorders 29 weeks gestation of ([facility]) state, incidental Pre-existing type 2 diabetes mellitus in in third trimester ([facility]) Diabetes mellitus of mother, complicating , childbirth, or the puerperium, unspecified as to episode of care 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 Pre-existing type 2 diabetes mellitus in in first trimester ([facility]) Diabetes mellitus of mother, complicating , childbirth, or the puerperium, unspecified as to episode of care Tobacco smoking complicating in first trimester ([facility]) Tobacco use disorder complicating , childbirth, or the puerperium, antepartum condition or complication History of recurrent UTI (urinary tract infection) Personal history of urinary (tract) infection 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, 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, 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 senior living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 ([facility]) Herpes simplex type 2 (HSV-2) infection affecting , antepartum, unspecified trimester ([facility]) Supervision of high risk in third trimester ([facility])- Primary Unspecified high-risk Pre-existing type 2 diabetes mellitus in in third trimester ([facility]) Diabetes mellitus of mother, complicating , childbirth, or the puerperium, unspecified as to episode of care Herpes simplex type 2 (HSV-2) infection affecting , antepartum, unspecified trimester ([facility]) H/O macrosomia in infant in prior , currently ([facility]) with other poor obstetric history History of pre-eclampsia Personal history of other genital system and obstetric disorders 31 weeks gestation of ([facility]) state, incidental Supervision of high risk in third trimester ([facility])- Primary Unspecified high-risk Pre-existing type 2 diabetes mellitus in in third trimester ([facility]) Diabetes mellitus of mother, complicating , childbirth, or the puerperium, unspecified as to episode of care Exposure to parvovirus Contact with or exposure to other viral diseases History of pre-eclampsia Personal history of other genital system and obstetric disorders Pre-existing type 2 diabetes mellitus in in third trimester ([facility])- Primary Diabetes mellitus of mother, complicating , childbirth, or the puerperium, unspecified as to episode of care History of pre-eclampsia Personal history of other genital system and obstetric disorders H/O macrosomia in in prior , currently ([facility]) with other poor obstetric history 33 weeks gestation of ([facility]) state, incidental Request for sterilization Herpes simplex type 2 (HSV-2) infection affecting , antepartum, unspecified trimester ([facility]) 33 weeks gestation of ([facility])- Primary state, incidental complication before ([facility]) Other specified complication, antepartum Pre-existing type 2 diabetes mellitus in in third trimester ([facility]) Diabetes mellitus of mother, complicating , childbirth, or the puerperium, unspecified as to episode of care Supervision of high risk in third trimester ([facility]) Unspecified high-risk pruritus, third trimester ([facility]) [facility] Diagnosis Pre-existing type 2 diabetes mellitus in in first trimester ([facility])- Primary Diabetes mellitus of mother, complicating , childbirth, or the puerperium, unspecified as to episode of care History of pre-eclampsia Personal history of other genital system and obstetric disorders H/O macrosomia in in prior , currently ([facility]) with other poor obstetric history 17 weeks gestation of ([facility]) state, incidental Encounter for screening for malformation using ultrasound ([facility]) Obesity affecting in first trimester, unspecified obesity type ([facility])- Primary Herpes simplex type 2 (HSV-2) infection affecting , antepartum, unspecified trimester ([facility]) Pre-existing type 2 diabetes mellitus in in first trimester ([facility]) Diabetes mellitus of mother, complicating , childbirth, or the puerperium, unspecified as to episode of care 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 Encounter for supervision of high risk in first trimester, antepartum ([facility]) 21 weeks gestation of ([facility]) state, incidental Pre-existing type 2 diabetes mellitus in in first trimester ([facility])- Primary Diabetes mellitus of mother, complicating , childbirth, or the puerperium, unspecified as to episode of care Obesity affecting in first trimester, unspecified obesity type ([facility]) History of pre-eclampsia Personal history of other genital system and obstetric disorders H/O macrosomia in infant in prior , currently ([facility]) with other poor obstetric history History of bipolar disorder Personal history of affective disorder 21 weeks gestation of ([facility]) state, incidental Encounter for anatomic survey ([facility]) Encounter for anatomic survey Supervision of high risk in third trimester ([facility])- Primary Unspecified high-risk History of pre-eclampsia Personal history of other genital system and obstetric disorders 29 weeks gestation of ([facility]) state, incidental Pre-existing type 2 diabetes mellitus in in third trimester ([facility]) Diabetes mellitus of mother, complicating , childbirth, or the puerperium, unspecified as to episode of care 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 Pre-existing type 2 diabetes mellitus in in first trimester ([facility]) Diabetes mellitus of mother, complicating , childbirth, or the puerperium, unspecified as to episode of care Tobacco smoking complicating in first trimester ([facility]) Tobacco use disorder complicating , childbirth, or the puerperium, antepartum condition or complication History of recurrent UTI (urinary tract infection) Personal history of urinary (tract) infection 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, 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, 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 ([facility]) Herpes simplex type 2 (HSV-2) infection affecting , antepartum, unspecified trimester ([facility]) Supervision of high risk in third trimester ([facility])- Primary Unspecified high-risk Pre-existing type 2 diabetes mellitus in in third trimester ([facility]) Diabetes mellitus of mother, complicating , childbirth, or the puerperium, unspecified as to episode of care Herpes simplex type 2 (HSV-2) infection affecting , antepartum, unspecified trimester ([facility]) H/O macrosomia in in prior , currently ([facility]) with other poor obstetric history History of pre-eclampsia Personal history of other genital system and obstetric disorders 31 weeks gestation of ([facility]) state, incidental Supervision of high risk in third trimester ([facility])- Primary Unspecified high-risk Pre-existing type 2 diabetes mellitus in in third trimester ([facility]) Diabetes mellitus of mother, complicating , childbirth, or the puerperium, unspecified as to episode of care Exposure to parvovirus Contact with or exposure to other viral diseases History of pre-eclampsia Personal history of other genital system and obstetric disorders Pre-existing type 2 diabetes mellitus in in third trimester ([facility])- Primary Diabetes mellitus of mother, complicating , childbirth, or the puerperium, unspecified as to episode of care History of pre-eclampsia Personal history of other genital system and obstetric disorders H/O macrosomia in infant in prior , currently ([facility]) with other poor obstetric history 33 weeks gestation of ([facility]) state, incidental Request for sterilization Herpes simplex type 2 (HSV-2) infection affecting , antepartum, unspecified trimester ([facility]) Pre-existing type 2 diabetes mellitus in in first trimester ([facility])- Primary Diabetes mellitus of mother, complicating , childbirth, or the puerperium, unspecified as to episode of care 34 weeks gestation of ([facility]) state, incidental documented in this encounter [facility]* Diagnosis Pre-existing type 2 diabetes mellitus in in first trimester ([facility])- Primary Diabetes mellitus of mother, complicating , childbirth, or the puerperium, unspecified as to episode of care History of pre-eclampsia Personal history of other genital system and obstetric disorders H/O macrosomia in infant in prior , currently ([facility]) with other poor obstetric history 17 weeks gestation of ([facility]) state, incidental Encounter for screening for malformation using ultrasound ([facility]) Obesity affecting in first trimester, unspecified obesity type ([facility])- Primary Herpes simplex type 2 (HSV-2) infection affecting , antepartum, unspecified trimester ([facility]) Pre-existing type 2 diabetes mellitus in in first trimester ([facility]) Diabetes mellitus of mother, complicating , childbirth, or the puerperium, unspecified as to episode of care 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 Encounter for supervision of high risk in first trimester, antepartum ([facility]) 21 weeks gestation of ([facility]) state, incidental Pre-existing type 2 diabetes mellitus in in first trimester ([facility])- Primary Diabetes mellitus of mother, complicating , childbirth, or the puerperium, unspecified as to episode of care Obesity affecting in first trimester, unspecified obesity type ([facility]) History of pre-eclampsia Personal history of other genital system and obstetric disorders H/O macrosomia in in prior , currently ([facility]) with other poor obstetric history History of bipolar disorder Personal history of affective disorder 21 weeks gestation of ([facility]) state, incidental Encounter for anatomic survey ([facility]) Encounter for anatomic survey Supervision of high risk in third trimester ([facility])- Primary Unspecified high-risk History of pre-eclampsia Personal history of other genital system and obstetric disorders 29 weeks gestation of ([facility]) state, incidental Pre-existing type 2 diabetes mellitus in in third trimester ([facility]) Diabetes mellitus of mother, complicating , childbirth, or the puerperium, unspecified as to episode of care 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 Pre-existing type 2 diabetes mellitus in in first trimester ([facility]) Diabetes mellitus of mother, complicating , childbirth, or the puerperium, unspecified as to episode of care Tobacco smoking complicating in first trimester ([facility]) Tobacco use disorder complicating , childbirth, or the puerperium, antepartum condition or complication History of recurrent UTI (urinary tract infection) Personal history of urinary (tract) infection 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, 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, 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 ([facility]) Herpes simplex type 2 (HSV-2) infection affecting , antepartum, unspecified trimester ([facility]) Supervision of high risk in third trimester ([facility])- Primary Unspecified high-risk Pre-existing type 2 diabetes mellitus in in third trimester ([facility]) Diabetes mellitus of mother, complicating , childbirth, or the puerperium, unspecified as to episode of care Herpes simplex type 2 (HSV-2) infection affecting , antepartum, unspecified trimester ([facility]) H/O macrosomia in in prior , currently ([facility]) with other poor obstetric history History of pre-eclampsia Personal history of other genital system and obstetric disorders 31 weeks gestation of ([facility]) state, incidental Supervision of high risk in third trimester ([facility])- Primary Unspecified high-risk Pre-existing type 2 diabetes mellitus in in third trimester ([facility]) Diabetes mellitus of mother, complicating , childbirth, or the puerperium, unspecified as to episode of care Exposure to parvovirus Contact with or exposure to other viral diseases History of pre-eclampsia Personal history of other genital system and obstetric disorders Pre-existing type 2 diabetes mellitus in in third trimester ([facility])- Primary Diabetes mellitus of mother, complicating , childbirth, or the puerperium, unspecified as to episode of care History of pre-eclampsia Personal history of other genital system and obstetric disorders H/O macrosomia in in prior , currently ([facility]) with other poor obstetric history 33 weeks gestation of ([facility]) state, incidental Request for sterilization Herpes simplex type 2 (HSV-2) infection affecting , antepartum, unspecified trimester ([facility]) Pre-existing type 2 diabetes mellitus in in third trimester ([facility])- Primary Diabetes mellitus of mother, complicating , childbirth, or the puerperium, unspecified as to episode of care pruritus, third trimester ([facility]) History of pre-eclampsia Personal history of other genital system and obstetric disorders H/O macrosomia in infant in prior , currently ([facility]) with other poor obstetric history 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 complication before ([facility]) Other specified complication, antepartum 34 weeks gestation of ([facility]) state, incidental documented in this encounter [facility] note* Diagnosis Pre-existing type 2 diabetes mellitus in in first trimester ([facility])- Primary Diabetes mellitus of mother, complicating , childbirth, or the puerperium, unspecified as to episode of care History of pre-eclampsia Personal history of other genital system and obstetric disorders H/O macrosomia in infant in prior , currently ([facility]) with other poor obstetric history 17 weeks gestation of ([facility]) state, incidental Encounter for screening for malformation using ultrasound ([facility]) Obesity affecting in first trimester, unspecified obesity type ([facility])- Primary Herpes simplex type 2 (HSV-2) infection affecting , antepartum, unspecified trimester ([facility]) Pre-existing type 2 diabetes mellitus in in first trimester ([facility]) Diabetes mellitus of mother, complicating , childbirth, or the puerperium, unspecified as to episode of care 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 Encounter for supervision of high risk in first trimester, antepartum ([facility]) 21 weeks gestation of ([facility]) state, incidental Pre-existing type 2 diabetes mellitus in in first trimester ([facility])- Primary Diabetes mellitus of mother, complicating , childbirth, or the puerperium, unspecified as to episode of care Obesity affecting in first trimester, unspecified obesity type ([facility]) History of pre-eclampsia Personal history of other genital system and obstetric disorders H/O macrosomia in in prior , currently ([facility]) with other poor obstetric history History of bipolar disorder Personal history of affective disorder 21 weeks gestation of ([facility]) state, incidental Encounter for anatomic survey ([facility]) Encounter for anatomic survey Supervision of high risk in third trimester ([facility])- Primary Unspecified high-risk History of pre-eclampsia Personal history of other genital system and obstetric disorders 29 weeks gestation of ([facility]) state, incidental Pre-existing type 2 diabetes mellitus in in third trimester ([facility]) Diabetes mellitus of mother, complicating , childbirth, or the puerperium, unspecified as to episode of care 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 Pre-existing type 2 diabetes mellitus in in first trimester ([facility]) Diabetes mellitus of mother, complicating , childbirth, or the puerperium, unspecified as to episode of care Tobacco smoking complicating in first trimester ([facility]) Tobacco use disorder complicating , childbirth, or the puerperium, antepartum condition or complication History of recurrent UTI (urinary tract infection) Personal history of urinary (tract) infection 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, 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, 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 senior living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 ([facility]) Herpes simplex type 2 (HSV-2) infection affecting , antepartum, unspecified trimester ([facility]) Supervision of high risk in third trimester ([facility])- Primary Unspecified high-risk Pre-existing type 2 diabetes mellitus in in third trimester ([facility]) Diabetes mellitus of mother, complicating , childbirth, or the puerperium, unspecified as to episode of care Herpes simplex type 2 (HSV-2) infection affecting , antepartum, unspecified trimester ([facility] [facility]) H/O macrosomia in infant in prior , currently ([facility]) with other poor obstetric history History of pre-eclampsia Personal history of other genital system and obstetric disorders 31 weeks gestation of ([facility]) state, incidental Supervision of high risk in third trimester ([facility])- Primary Unspecified high-risk Pre-existing type 2 diabetes mellitus in in third trimester ([facility]) Diabetes mellitus of mother, complicating , childbirth, or the puerperium, unspecified as to episode of care Exposure to parvovirus Contact with or exposure to other viral diseases History of pre-eclampsia Personal history of other genital system and obstetric disorders Pre-existing type 2 diabetes mellitus in in third trimester ([facility])- Primary Diabetes mellitus of mother, complicating , childbirth, or the puerperium, unspecified as to episode of care History of pre-eclampsia Personal history of other genital system and obstetric disorders H/O macrosomia in infant in prior , currently ([facility]) with other poor obstetric history 33 weeks gestation of ([facility]) state, incidental Request for sterilization Herpes simplex type 2 (HSV-2) infection affecting , antepartum, unspecified trimester ([facility]) Pre-existing type 2 diabetes mellitus in in third trimester ([facility])- Primary Diabetes mellitus of mother, complicating , childbirth, or the puerperium, unspecified as to episode of care 35 weeks gestation of ([facility]) state, incidental Supervision of high risk in third trimester ([facility]) Unspecified high-risk documented in this encounter [facility] note* Diagnosis Pre-existing type 2 diabetes mellitus in in first trimester ([facility])- Primary Diabetes mellitus of mother, complicating , childbirth, or the puerperium, unspecified as to episode of care History of pre-eclampsia Personal history of other genital system and obstetric disorders H/O macrosomia in infant in prior , currently ([facility]) with other poor obstetric history 17 weeks gestation of ([facility]) state, incidental Encounter for screening for malformation using ultrasound ([facility]) Obesity affecting in first trimester, unspecified obesity type ([facility])- Primary Herpes simplex type 2 (HSV-2) infection affecting , antepartum, unspecified trimester ([facility]) Pre-existing type 2 diabetes mellitus in in first trimester ([facility]) Diabetes mellitus of mother, complicating , childbirth, or the puerperium, unspecified as to episode of care 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 Encounter for supervision of high risk in first trimester, antepartum ([facility]) 21 weeks gestation of ([facility]) state, incidental Pre-existing type 2 diabetes mellitus in in first trimester ([facility])- Primary Diabetes mellitus of mother, complicating , childbirth, or the puerperium, unspecified as to episode of care Obesity affecting in first trimester, unspecified obesity type ([facility]) History of pre-eclampsia Personal history of other genital system and obstetric disorders H/O macrosomia in in prior , currently ([facility]) with other poor obstetric history History of bipolar disorder Personal history of affective disorder 21 weeks gestation of ([facility]) state, incidental Encounter for anatomic survey ([facility]) Encounter for anatomic survey Supervision of high risk in third trimester ([facility])- Primary Unspecified high-risk History of pre-eclampsia Personal history of other genital system and obstetric disorders 29 weeks gestation of ([facility]) state, incidental Pre-existing type 2 diabetes mellitus in in third trimester ([facility]) Diabetes mellitus of mother, complicating , childbirth, or the puerperium, unspecified as to episode of care 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 Pre-existing type 2 diabetes mellitus in in first trimester ([facility]) Diabetes mellitus of mother, complicating , childbirth, or the puerperium, unspecified as to episode of care Tobacco smoking complicating in first trimester ([facility]) Tobacco use disorder complicating , childbirth, or the puerperium, antepartum condition or complication History of recurrent UTI (urinary tract infection) Personal history of urinary (tract) infection 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, 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, 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 senior living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 ([facility]) Herpes simplex type 2 (HSV-2) infection affecting , antepartum, unspecified trimester ([facility]) Supervision of high risk in third trimester ([facility])- Primary Unspecified high-risk Pre-existing type 2 diabetes mellitus in in third trimester ([facility]) Diabetes mellitus of mother, complicating , childbirth, or the puerperium, unspecified as to episode of care Herpes simplex type 2 (HSV-2) infection affecting , antepartum, unspecified trimester ([facility]) H/O macrosomia in in prior , currently ([facility]) with other poor obstetric history History of pre-eclampsia Personal history of other genital system and obstetric disorders 31 weeks gestation of ([facility]) state, incidental Supervision of high risk in third trimester ([facility])- Primary Unspecified high-risk Pre-existing type 2 diabetes mellitus in in third trimester ([facility]) Diabetes mellitus of mother, complicating , childbirth, or the puerperium, unspecified as to episode of care Exposure to parvovirus Contact with or exposure to other viral diseases History of pre-eclampsia Personal history of other genital system and obstetric disorders Pre-existing type 2 diabetes mellitus in in third trimester ([facility])- Primary Diabetes mellitus of mother, complicating , childbirth, or the puerperium, unspecified as to episode of care History of pre-eclampsia Personal history of other genital system and obstetric disorders H/O macrosomia in in prior , currently ([facility]) with other poor obstetric history 33 weeks gestation of ([facility]) state, incidental Request for sterilization Herpes simplex type 2 (HSV-2) infection affecting , antepartum, unspecified trimester ([facility]) Pre-existing type 2 diabetes mellitus in in first trimester ([facility])- Primary Diabetes mellitus of mother, complicating , childbirth, or the puerperium, unspecified as to episode of care 35 weeks gestation of ([facility]) state, incidental documented in this encounter [facility] note* Diagnosis Pre-existing type 2 diabetes mellitus in in first trimester ([facility])- Primary Diabetes mellitus of mother, complicating , childbirth, or the puerperium, unspecified as to episode of care History of pre-eclampsia Personal history of other genital system and obstetric disorders H/O macrosomia in infant in prior , currently ([facility]) with other poor obstetric history 17 weeks gestation of ([facility]) state, incidental Encounter for screening for malformation using ultrasound ([facility]) Obesity affecting in first trimester, unspecified obesity type ([facility])- Primary Herpes simplex type 2 (HSV-2) infection affecting , antepartum, unspecified trimester ([facility]) Pre-existing type 2 diabetes mellitus in in first trimester ([facility]) Diabetes mellitus of mother, complicating , childbirth, or the puerperium, unspecified as to episode of care 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 Encounter for supervision of high risk in first trimester, antepartum ([facility]) 21 weeks gestation of ([facility]) state, incidental Pre-existing type 2 diabetes mellitus in in first trimester ([facility])- Primary Diabetes mellitus of mother, complicating , childbirth, or the puerperium, unspecified as to episode of care Obesity affecting in first trimester, unspecified obesity type ([facility]) History of pre-eclampsia Personal history of other genital system and obstetric disorders H/O macrosomia in infant in prior , currently ([facility]) with other poor obstetric history History of bipolar disorder Personal history of affective disorder 21 weeks gestation of ([facility]) state, incidental Encounter for anatomic survey ([facility]) Encounter for anatomic survey Supervision of high risk in third trimester ([facility])- Primary Unspecified high-risk History of pre-eclampsia Personal history of other genital system and obstetric disorders 29 weeks gestation of ([facility]) state, incidental Pre-existing type 2 diabetes mellitus in in third trimester ([facility]) Diabetes mellitus of mother, complicating , childbirth, or the puerperium, unspecified as to episode of care 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 Pre-existing type 2 diabetes mellitus in in first trimester ([facility]) Diabetes mellitus of mother, complicating , childbirth, or the puerperium, unspecified as to episode of care Tobacco smoking complicating in first trimester ([facility]) Tobacco use disorder complicating , childbirth, or the puerperium, antepartum condition or complication History of recurrent UTI (urinary tract infection) Personal history of urinary (tract) infection 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, 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, 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 ([facility]) Herpes simplex type 2 (HSV-2) infection affecting , antepartum, unspecified trimester ([facility]) Supervision of high risk in third trimester ([facility])- Primary Unspecified high-risk Pre-existing type 2 diabetes mellitus in in third trimester ([facility]) Diabetes mellitus of mother, complicating , childbirth, or the puerperium, unspecified as to episode of care Herpes simplex type 2 (HSV-2) infection affecting , antepartum, unspecified trimester ([facility]) H/O macrosomia in infant in prior , currently ([facility]) with other poor obstetric history History of pre-eclampsia Personal history of other genital system and obstetric disorders 31 weeks gestation of ([facility]) state, incidental Supervision of high risk in third trimester ([facility])- Primary Unspecified high-risk Pre-existing type 2 diabetes mellitus in in third trimester ([facility]) Diabetes mellitus of mother, complicating , childbirth, or the puerperium, unspecified as to episode of care Exposure to parvovirus Contact with or exposure to other viral diseases History of pre-eclampsia Personal history of other genital system and obstetric disorders Pre-existing type 2 diabetes mellitus in in third trimester ([facility])- Primary Diabetes mellitus of mother, complicating , childbirth, or the puerperium, unspecified as to episode of care History of pre-eclampsia Personal history of other genital system and obstetric disorders H/O macrosomia in in prior , currently ([facility]) with other poor obstetric history 33 weeks gestation of ([facility]) state, incidental Request for sterilization Herpes simplex type 2 (HSV-2) infection affecting , antepartum, unspecified trimester ([facility]) Pre-existing type 2 diabetes mellitus in in third trimester ([facility])- Primary Diabetes mellitus of mother, complicating , childbirth, or the puerperium, unspecified as to episode of care 35 weeks gestation of ([facility]) state, incidental Vaginal itching Pruritus of genital organs [facility] Diagnosis Pre-existing type 2 diabetes mellitus in in first trimester ([facility])- Primary Diabetes mellitus of mother, complicating , childbirth, or the puerperium, unspecified as to episode of care History of pre-eclampsia Personal history of other genital system and obstetric disorders H/O macrosomia in in prior , currently ([facility]) with other poor obstetric history 17 weeks gestation of ([facility]) state, incidental Encounter for screening for malformation using ultrasound ([facility]) Obesity affecting in first trimester, unspecified obesity type ([facility])- Primary Herpes simplex type 2 (HSV-2) infection affecting , antepartum, unspecified trimester ([facility]) Pre-existing type 2 diabetes mellitus in in first trimester ([facility]) Diabetes mellitus of mother, complicating , childbirth, or the puerperium, unspecified as to episode of care 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 Encounter for supervision of high risk in first trimester, antepartum ([facility]) 21 weeks gestation of ([facility]) state, incidental Pre-existing type 2 diabetes mellitus in in first trimester ([facility])- Primary Diabetes mellitus of mother, complicating , childbirth, or the puerperium, unspecified as to episode of care Obesity affecting in first trimester, unspecified obesity type ([facility]) History of pre-eclampsia Personal history of other genital system and obstetric disorders H/O macrosomia in in prior , currently ([facility]) with other poor obstetric history History of bipolar disorder Personal history of affective disorder 21 weeks gestation of ([facility]) state, incidental Encounter for anatomic survey ([facility]) Encounter for anatomic survey Supervision of high risk in third trimester ([facility])- Primary Unspecified high-risk History of pre-eclampsia Personal history of other genital system and obstetric disorders 29 weeks gestation of ([facility]) state, incidental Pre-existing type 2 diabetes mellitus in in third trimester ([facility]) Diabetes mellitus of mother, complicating , childbirth, or the puerperium, unspecified as to episode of care 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 Pre-existing type 2 diabetes mellitus in in first trimester ([facility]) Diabetes mellitus of mother, complicating , childbirth, or the puerperium, unspecified as to episode of care Tobacco smoking complicating in first trimester ([facility]) Tobacco use disorder complicating , childbirth, or the puerperium, antepartum condition or complication History of recurrent UTI (urinary tract infection) Personal history of urinary (tract) infection 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, 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, 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 senior living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 ([facility]) Herpes simplex type 2 (HSV-2) infection affecting , antepartum, unspecified trimester ([facility]) Supervision of high risk in third trimester ([facility])- Primary Unspecified high-risk Pre-existing type 2 diabetes mellitus in in third trimester ([facility]) Diabetes mellitus of mother, complicating , childbirth, or the puerperium, unspecified as to episode of care Herpes simplex type 2 (HSV-2) infection affecting , antepartum, unspecified trimester ([facility]) H/O macrosomia in infant in prior , currently ([facility]) with other poor obstetric history History of pre-eclampsia Personal history of other genital system and obstetric disorders 31 weeks gestation of ([facility]) state, incidental Supervision of high risk in third trimester ([facility])- Primary Unspecified high-risk Pre-existing type 2 diabetes mellitus in in third trimester ([facility]) Diabetes mellitus of mother, complicating , childbirth, or the puerperium, unspecified as to episode of care Exposure to parvovirus Contact with or exposure to other viral diseases History of pre-eclampsia Personal history of other genital system and obstetric disorders Pre-existing type 2 diabetes mellitus in in third trimester ([facility])- Primary Diabetes mellitus of mother, complicating , childbirth, or the puerperium, unspecified as to episode of care History of pre-eclampsia Personal history of other genital system and obstetric disorders H/O macrosomia in infant in prior , currently ([facility]) with other poor obstetric history 33 weeks gestation of ([facility]) state, incidental Request for sterilization Herpes simplex type 2 (HSV-2) infection affecting , antepartum, unspecified trimester ([facility]) Obesity affecting in first trimester, unspecified obesity type ([facility])- Primary Pre-existing type 2 diabetes mellitus in in first trimester ([facility]) Diabetes mellitus of mother, complicating , childbirth, or the puerperium, unspecified as to episode of care documented in this encounter [facility] note* Diagnosis Pre-existing type 2 diabetes mellitus in in first trimester ([facility])- Primary Diabetes mellitus of mother, complicating , childbirth, or the puerperium, unspecified as to episode of care History of pre-eclampsia Personal history of other genital system and obstetric disorders H/O macrosomia in in prior , currently ([facility]) with other poor obstetric history 17 weeks gestation of ([facility]) state, incidental Encounter for screening for malformation using ultrasound ([facility]) Obesity affecting in first trimester, unspecified obesity type ([facility])- Primary Herpes simplex type 2 (HSV-2) infection affecting , antepartum, unspecified trimester ([facility]) Pre-existing type 2 diabetes mellitus in in first trimester ([facility]) Diabetes mellitus of mother, complicating , childbirth, or the puerperium, unspecified as to episode of care 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 Encounter for supervision of high risk in first trimester, antepartum ([facility]) 21 weeks gestation of ([facility]) state, incidental Pre-existing type 2 diabetes mellitus in in first trimester ([facility])- Primary Diabetes mellitus of mother, complicating , childbirth, or the puerperium, unspecified as to episode of care Obesity affecting in first trimester, unspecified obesity type ([facility]) History of pre-eclampsia Personal history of other genital system and obstetric disorders H/O macrosomia in in prior , currently ([facility]) with other poor obstetric history History of bipolar disorder Personal history of affective disorder 21 weeks gestation of ([facility]) state, incidental Encounter for anatomic survey ([facility]) Encounter for anatomic survey Supervision of high risk in third trimester ([facility])- Primary Unspecified high-risk History of pre-eclampsia Personal history of other genital system and obstetric disorders 29 weeks gestation of ([facility]) state, incidental Pre-existing type 2 diabetes mellitus in in third trimester ([facility]) Diabetes mellitus of mother, complicating , childbirth, or the puerperium, unspecified as to episode of care 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 Pre-existing type 2 diabetes mellitus in in first trimester ([facility]) Diabetes mellitus of mother, complicating , childbirth, or the puerperium, unspecified as to episode of care Tobacco smoking complicating in first trimester ([facility]) Tobacco use disorder complicating , childbirth, or the puerperium, antepartum condition or complication History of recurrent UTI (urinary tract infection) Personal history of urinary (tract) infection 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, 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, 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 senior living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 ([facility]) Herpes simplex type 2 (HSV-2) infection affecting , antepartum, unspecified trimester ([facility]) Supervision of high risk in third trimester ([facility])- Primary Unspecified high-risk Pre-existing type 2 diabetes mellitus in in third trimester ([facility]) Diabetes mellitus of mother, complicating , childbirth, or the puerperium, unspecified as to episode of care Herpes simplex type 2 (HSV-2) infection affecting , antepartum, unspecified trimester ([facility]) H/O macrosomia in in prior , currently ([facility]) with other poor obstetric history History of pre-eclampsia Personal history of other genital system and obstetric disorders 31 weeks gestation of ([facility]) state, incidental Supervision of high risk in third trimester ([facility])- Primary Unspecified high-risk Pre-existing type 2 diabetes mellitus in in third trimester ([facility]) Diabetes mellitus of mother, complicating , childbirth, or the puerperium, unspecified as to episode of care Exposure to parvovirus Contact with or exposure to other viral diseases History of pre-eclampsia Personal history of other genital system and obstetric disorders Pre-existing type 2 diabetes mellitus in in third trimester ([facility])- Primary Diabetes mellitus of mother, complicating , childbirth, or the puerperium, unspecified as to episode of care History of pre-eclampsia Personal history of other genital system and obstetric disorders H/O macrosomia in in prior , currently ([facility]) with other poor obstetric history 33 weeks gestation of ([facility]) state, incidental Request for sterilization Herpes simplex type 2 (HSV-2) infection affecting , antepartum, unspecified trimester ([facility]) History of herpes genitalis- Primary Personal history of other infectious and parasitic disease Pre-existing type 2 diabetes mellitus in in third trimester ([facility]) Diabetes mellitus of mother, complicating , childbirth, or the puerperium, unspecified as to episode of care History of pre-eclampsia Personal history of other genital system and obstetric disorders 36 weeks gestation of ([facility]) state, incidental * Assessment & Plan Note - William Gramajo MD - 11/25/2024 10:24 AM EDTAssociated Problem(s): History of pre-eclampsia Orders: URINE OB DIP [facility] Diagnosis Pre-existing type 2 diabetes mellitus in in first trimester ([facility])- Primary Diabetes mellitus of mother, complicating , childbirth, or the puerperium, unspecified as to episode of care History of pre-eclampsia Personal history of other genital system and obstetric disorders H/O macrosomia in in prior , currently ([facility]) with other poor obstetric history 17 weeks gestation of ([facility]) state, incidental Encounter for screening for malformation using ultrasound ([facility]) Obesity affecting in first trimester, unspecified obesity type ([facility])- Primary Herpes simplex type 2 (HSV-2) infection affecting , antepartum, unspecified trimester ([facility]) Pre-existing type 2 diabetes mellitus in in first trimester ([facility]) Diabetes mellitus of mother, complicating , childbirth, or the puerperium, unspecified as to episode of care 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 Encounter for supervision of high risk in first trimester, antepartum ([facility]) 21 weeks gestation of ([facility]) state, incidental Pre-existing type 2 diabetes mellitus in in first trimester ([facility])- Primary Diabetes mellitus of mother, complicating , childbirth, or the puerperium, unspecified as to episode of care Obesity affecting in first trimester, unspecified obesity type ([facility]) History of pre-eclampsia Personal history of other genital system and obstetric disorders H/O macrosomia in in prior , currently ([facility]) with other poor obstetric history History of bipolar disorder Personal history of affective disorder 21 weeks gestation of ([facility]) state, incidental Encounter for anatomic survey ([facility]) Encounter for anatomic survey Supervision of high risk in third trimester ([facility])- Primary Unspecified high-risk History of pre-eclampsia Personal history of other genital system and obstetric disorders 29 weeks gestation of ([facility]) state, incidental Pre-existing type 2 diabetes mellitus in in third trimester ([facility]) Diabetes mellitus of mother, complicating , childbirth, or the puerperium, unspecified as to episode of care 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 Pre-existing type 2 diabetes mellitus in in first trimester ([facility]) Diabetes mellitus of mother, complicating , childbirth, or the puerperium, unspecified as to episode of care Tobacco smoking complicating in first trimester ([facility]) Tobacco use disorder complicating , childbirth, or the puerperium, antepartum condition or complication History of recurrent UTI (urinary tract infection) Personal history of urinary (tract) infection 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, 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, 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 senior living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 ([facility]) Herpes simplex type 2 (HSV-2) infection affecting , antepartum, unspecified trimester ([facility]) Supervision of high risk in third trimester ([facility])- Primary Unspecified high-risk Pre-existing type 2 diabetes mellitus in in third trimester ([facility]) Diabetes mellitus of mother, complicating , childbirth, or the puerperium, unspecified as to episode of care Herpes simplex type 2 (HSV-2) infection affecting , antepartum, unspecified trimester ([facility]) H/O macrosomia in in prior , currently ([facility]) with other poor obstetric history History of pre-eclampsia Personal history of other genital system and obstetric disorders 31 weeks gestation of ([facility]) state, incidental Supervision of high risk in third trimester ([facility])- Primary Unspecified high-risk Pre-existing type 2 diabetes mellitus in in third trimester ([facility]) Diabetes mellitus of mother, complicating , childbirth, or the puerperium, unspecified as to episode of care Exposure to parvovirus Contact with or exposure to other viral diseases History of pre-eclampsia Personal history of other genital system and obstetric disorders Pre-existing type 2 diabetes mellitus in in third trimester ([facility])- Primary Diabetes mellitus of mother, complicating , childbirth, or the puerperium, unspecified as to episode of care History of pre-eclampsia Personal history of other genital system and obstetric disorders H/O macrosomia in in prior , currently ([facility]) with other poor obstetric history 33 weeks gestation of ([facility]) state, incidental Request for sterilization Herpes simplex type 2 (HSV-2) infection affecting , antepartum, unspecified trimester ([facility]) History of herpes genitalis- Primary Personal history of other infectious and parasitic disease Pre-existing type 2 diabetes mellitus in in third trimester ([facility]) Diabetes mellitus of mother, complicating , childbirth, or the puerperium, unspecified as to episode of care History of pre-eclampsia Personal history of other genital system and obstetric disorders 36 weeks gestation of ([facility]) state, incidental Pre-existing type 2 diabetes mellitus in in third trimester ([facility])- Primary Diabetes mellitus of mother, complicating , childbirth, or the puerperium, unspecified as to episode of care Pre-existing type 2 diabetes mellitus in in first trimester ([facility]) Diabetes mellitus of mother, complicating , childbirth, or the puerperium, unspecified as to episode of care documented in this encounter [facility]* Diagnosis Pre-existing type 2 diabetes mellitus in in first trimester ([facility])- Primary Diabetes mellitus of mother, complicating , childbirth, or the puerperium, unspecified as to episode of care History of pre-eclampsia Personal history of other genital system and obstetric disorders H/O macrosomia in in prior , currently ([facility]) with other poor obstetric history 17 weeks gestation of ([facility]) state, incidental Encounter for screening for malformation using ultrasound ([facility]) Obesity affecting in first trimester, unspecified obesity type ([facility])- Primary Herpes simplex type 2 (HSV-2) infection affecting , antepartum, unspecified trimester ([facility]) Pre-existing type 2 diabetes mellitus in in first trimester ([facility]) Diabetes mellitus of mother, complicating , childbirth, or the puerperium, unspecified as to episode of care 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 Encounter for supervision of high risk in first trimester, antepartum ([facility]) 21 weeks gestation of ([facility]) state, incidental Pre-existing type 2 diabetes mellitus in in first trimester ([facility])- Primary Diabetes mellitus of mother, complicating , childbirth, or the puerperium, unspecified as to episode of care Obesity affecting in first trimester, unspecified obesity type ([facility]) History of pre-eclampsia Personal history of other genital system and obstetric disorders H/O macrosomia in in prior , currently ([facility]) with other poor obstetric history History of bipolar disorder Personal history of affective disorder 21 weeks gestation of ([facility]) state, incidental Encounter for anatomic survey ([facility]) Encounter for anatomic survey Supervision of high risk in third trimester ([facility])- Primary Unspecified high-risk History of pre-eclampsia Personal history of other genital system and obstetric disorders 29 weeks gestation of ([facility]) state, incidental Pre-existing type 2 diabetes mellitus in in third trimester ([facility]) Diabetes mellitus of mother, complicating , childbirth, or the puerperium, unspecified as to episode of care 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 Pre-existing type 2 diabetes mellitus in in first trimester ([facility]) Diabetes mellitus of mother, complicating , childbirth, or the puerperium, unspecified as to episode of care Tobacco smoking complicating in first trimester ([facility]) Tobacco use disorder complicating , childbirth, or the puerperium, antepartum condition or complication History of recurrent UTI (urinary tract infection) Personal history of urinary (tract) infection 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, 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, 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 senior living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 ([facility]) Herpes simplex type 2 (HSV-2) infection affecting , antepartum, unspecified trimester ([facility]) Supervision of high risk in third trimester ([facility])- Primary Unspecified high-risk Pre-existing type 2 diabetes mellitus in in third trimester ([facility]) Diabetes mellitus of mother, complicating , childbirth, or the puerperium, unspecified as to episode of care Herpes simplex type 2 (HSV-2) infection affecting , antepartum, unspecified trimester ([facility]) H/O macrosomia in in prior , currently ([facility]) with other poor obstetric history History of pre-eclampsia Personal history of other genital system and obstetric disorders 31 weeks gestation of ([facility]) state, incidental Supervision of high risk in third trimester ([facility])- Primary Unspecified high-risk Pre-existing type 2 diabetes mellitus in in third trimester ([facility]) Diabetes mellitus of mother, complicating , childbirth, or the puerperium, unspecified as to episode of care Exposure to parvovirus Contact with or exposure to other viral diseases History of pre-eclampsia Personal history of other genital system and obstetric disorders Pre-existing type 2 diabetes mellitus in in third trimester ([facility])- Primary Diabetes mellitus of mother, complicating , childbirth, or the puerperium, unspecified as to episode of care History of pre-eclampsia Personal history of other genital system and obstetric disorders H/O macrosomia in infant in prior , currently ([facility]) with other poor obstetric history 33 weeks gestation of ([facility]) state, incidental Request for sterilization Herpes simplex type 2 (HSV-2) infection affecting , antepartum, unspecified trimester ([facility]) History of herpes genitalis- Primary Personal history of other infectious and parasitic disease Pre-existing type 2 diabetes mellitus in in third trimester ([facility]) Diabetes mellitus of mother, complicating , childbirth, or the puerperium, unspecified as to episode of care History of pre-eclampsia Personal history of other genital system and obstetric disorders 36 weeks gestation of ([facility]) state, incidental Pre-existing type 2 diabetes mellitus in in third trimester ([facility])- Primary Diabetes mellitus of mother, complicating , childbirth, or the puerperium, unspecified as to episode of care 37 weeks gestation of ([facility]) state, incidental Supervision of high risk in third trimester ([facility]) Unspecified high-risk [facility] Diagnosis Pre-existing type 2 diabetes mellitus in in first trimester ([facility])- Primary Diabetes mellitus of mother, complicating , childbirth, or the puerperium, unspecified as to episode of care History of pre-eclampsia Personal history of other genital system and obstetric disorders H/O macrosomia in infant in prior , currently ([facility]) with other poor obstetric history 17 weeks gestation of ([facility]) state, incidental Encounter for screening for malformation using ultrasound ([facility]) Obesity affecting in first trimester, unspecified obesity type ([facility])- Primary Herpes simplex type 2 (HSV-2) infection affecting , antepartum, unspecified trimester ([facility]) Pre-existing type 2 diabetes mellitus in in first trimester ([facility]) Diabetes mellitus of mother, complicating , childbirth, or the puerperium, unspecified as to episode of care 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 Encounter for supervision of high risk in first trimester, antepartum ([facility]) 21 weeks gestation of ([facility]) state, incidental Pre-existing type 2 diabetes mellitus in in first trimester ([facility])- Primary Diabetes mellitus of mother, complicating , childbirth, or the puerperium, unspecified as to episode of care Obesity affecting in first trimester, unspecified obesity type ([facility]) History of pre-eclampsia Personal history of other genital system and obstetric disorders H/O macrosomia in infant in prior , currently ([facility]) with other poor obstetric history History of bipolar disorder Personal history of affective disorder 21 weeks gestation of ([facility]) state, incidental Encounter for anatomic survey ([facility]) Encounter for anatomic survey Supervision of high risk in third trimester ([facility])- Primary Unspecified high-risk History of pre-eclampsia Personal history of other genital system and obstetric disorders 29 weeks gestation of ([facility]) state, incidental Pre-existing type 2 diabetes mellitus in in third trimester ([facility]) Diabetes mellitus of mother, complicating , childbirth, or the puerperium, unspecified as to episode of care 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 Pre-existing type 2 diabetes mellitus in in first trimester ([facility]) Diabetes mellitus of mother, complicating , childbirth, or the puerperium, unspecified as to episode of care Tobacco smoking complicating in first trimester ([facility]) Tobacco use disorder complicating , childbirth, or the puerperium, antepartum condition or complication History of recurrent UTI (urinary tract infection) Personal history of urinary (tract) infection 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, 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, 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 senior living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 ([facility]) Herpes simplex type 2 (HSV-2) infection affecting , antepartum, unspecified trimester ([facility]) Supervision of high risk in third trimester ([facility])- Primary Unspecified high-risk Pre-existing type 2 diabetes mellitus in in third trimester ([facility]) Diabetes mellitus of mother, complicating , childbirth, or the puerperium, unspecified as to episode of care Herpes simplex type 2 (HSV-2) infection affecting , antepartum, unspecified trimester ([facility]) H/O macrosomia in in prior , currently ([facility]) with other poor obstetric history History of pre-eclampsia Personal history of other genital system and obstetric disorders 31 weeks gestation of ([facility]) state, incidental Supervision of high risk in third trimester ([facility])- Primary Unspecified high-risk Pre-existing type 2 diabetes mellitus in in third trimester ([facility]) Diabetes mellitus of mother, complicating , childbirth, or the puerperium, unspecified as to episode of care Exposure to parvovirus Contact with or exposure to other viral diseases History of pre-eclampsia Personal history of other genital system and obstetric disorders Pre-existing type 2 diabetes mellitus in in third trimester ([facility])- Primary Diabetes mellitus of mother, complicating , childbirth, or the puerperium, unspecified as to episode of care History of pre-eclampsia Personal history of other genital system and obstetric disorders H/O macrosomia in infant in prior , currently ([facility]) with other poor obstetric history 33 weeks gestation of ([facility]) state, incidental Request for sterilization Herpes simplex type 2 (HSV-2) infection affecting , antepartum, unspecified trimester ([facility]) History of herpes genitalis- Primary Personal history of other infectious and parasitic disease Pre-existing type 2 diabetes mellitus in in third trimester ([facility]) Diabetes mellitus of mother, complicating , childbirth, or the puerperium, unspecified as to episode of care History of pre-eclampsia Personal history of other genital system and obstetric disorders 36 weeks gestation of ([facility]) state, incidental Pre-existing type 2 diabetes mellitus in in first trimester ([facility])- Primary Diabetes mellitus of mother, complicating , childbirth, or the puerperium, unspecified as to episode of care 38 weeks gestation of ([facility]) state, incidental documented in this encounter [facility] note* Diagnosis Pre-existing type 2 diabetes mellitus in in first trimester ([facility])- Primary Diabetes mellitus of mother, complicating , childbirth, or the puerperium, unspecified as to episode of care History of pre-eclampsia Personal history of other genital system and obstetric disorders H/O macrosomia in infant in prior , currently ([facility]) with other poor obstetric history 17 weeks gestation of ([facility]) state, incidental Encounter for screening for malformation using ultrasound ([facility]) Obesity affecting in first trimester, unspecified obesity type ([facility])- Primary Herpes simplex type 2 (HSV-2) infection affecting , antepartum, unspecified trimester ([facility]) Pre-existing type 2 diabetes mellitus in in first trimester ([facility]) Diabetes mellitus of mother, complicating , childbirth, or the puerperium, unspecified as to episode of care 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 Encounter for supervision of high risk in first trimester, antepartum ([facility]) 21 weeks gestation of ([facility]) state, incidental Pre-existing type 2 diabetes mellitus in in first trimester ([facility])- Primary Diabetes mellitus of mother, complicating , childbirth, or the puerperium, unspecified as to episode of care Obesity affecting in first trimester, unspecified obesity type ([facility]) History of pre-eclampsia Personal history of other genital system and obstetric disorders H/O macrosomia in infant in prior , currently ([facility]) with other poor obstetric history History of bipolar disorder Personal history of affective disorder 21 weeks gestation of ([facility]) state, incidental Encounter for anatomic survey ([facility]) Encounter for anatomic survey Supervision of high risk in third trimester ([facility])- Primary Unspecified high-risk History of pre-eclampsia Personal history of other genital system and obstetric disorders 29 weeks gestation of ([facility]) state, incidental Pre-existing type 2 diabetes mellitus in in third trimester ([facility]) Diabetes mellitus of mother, complicating , childbirth, or the puerperium, unspecified as to episode of care 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 Pre-existing type 2 diabetes mellitus in in first trimester ([facility]) Diabetes mellitus of mother, complicating , childbirth, or the puerperium, unspecified as to episode of care Tobacco smoking complicating in first trimester ([facility]) Tobacco use disorder complicating , childbirth, or the puerperium, antepartum condition or complication History of recurrent UTI (urinary tract infection) Personal history of urinary (tract) infection 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, 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, 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 senior living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 ([facility]) Herpes simplex type 2 (HSV-2) infection affecting , antepartum, unspecified trimester ([facility]) Supervision of high risk in third trimester ([facility])- Primary Unspecified high-risk Pre-existing type 2 diabetes mellitus in in third trimester ([facility]) Diabetes mellitus of mother, complicating , childbirth, or the puerperium, unspecified as to episode of care Herpes simplex type 2 (HSV-2) infection affecting , antepartum, unspecified trimester ([facility]) H/O macrosomia in infant in prior , currently ([facility]) with other poor obstetric history History of pre-eclampsia Personal history of other genital system and obstetric disorders 31 weeks gestation of ([facility]) state, incidental Supervision of high risk in third trimester ([facility])- Primary Unspecified high-risk Pre-existing type 2 diabetes mellitus in in third trimester ([facility]) Diabetes mellitus of mother, complicating , childbirth, or the puerperium, unspecified as to episode of care Exposure to parvovirus Contact with or exposure to other viral diseases History of pre-eclampsia Personal history of other genital system and obstetric disorders Pre-existing type 2 diabetes mellitus in in third trimester ([facility])- Primary Diabetes mellitus of mother, complicating , childbirth, or the puerperium, unspecified as to episode of care History of pre-eclampsia Personal history of other genital system and obstetric disorders H/O macrosomia in in prior , currently ([facility]) with other poor obstetric history 33 weeks gestation of ([facility]) state, incidental Request for sterilization Herpes simplex type 2 (HSV-2) infection affecting , antepartum, unspecified trimester ([facility]) History of herpes genitalis- Primary Personal history of other infectious and parasitic disease Pre-existing type 2 diabetes mellitus in in third trimester ([facility]) Diabetes mellitus of mother, complicating , childbirth, or the puerperium, unspecified as to episode of care History of pre-eclampsia Personal history of other genital system and obstetric disorders 36 weeks gestation of ([facility]) state, incidental Pre-existing type 2 diabetes mellitus in in third trimester ([facility])- Primary Diabetes mellitus of mother, complicating , childbirth, or the puerperium, unspecified as to episode of care Supervision of high risk in third trimester ([facility]) Unspecified high-risk History of pre-eclampsia Personal history of other genital system and obstetric disorders H/O macrosomia in in prior , currently ([facility]) with other poor obstetric history 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 38 weeks gestation of ([facility]) state, incidental [facility] Diagnosis Pre-existing type 2 diabetes mellitus in in first trimester ([facility])- Primary Diabetes mellitus of mother, complicating , childbirth, or the puerperium, unspecified as to episode of care History of pre-eclampsia Personal history of other genital system and obstetric disorders H/O macrosomia in infant in prior , currently ([facility]) with other poor obstetric history 17 weeks gestation of ([facility]) state, incidental Encounter for screening for malformation using ultrasound ([facility]) Obesity affecting in first trimester, unspecified obesity type ([facility])- Primary Herpes simplex type 2 (HSV-2) infection affecting , antepartum, unspecified trimester ([facility]) Pre-existing type 2 diabetes mellitus in in first trimester ([facility]) Diabetes mellitus of mother, complicating , childbirth, or the puerperium, unspecified as to episode of care 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 Encounter for supervision of high risk in first trimester, antepartum ([facility]) 21 weeks gestation of ([facility]) state, incidental Pre-existing type 2 diabetes mellitus in in first trimester ([facility])- Primary Diabetes mellitus of mother, complicating , childbirth, or the puerperium, unspecified as to episode of care Obesity affecting in first trimester, unspecified obesity type ([facility]) History of pre-eclampsia Personal history of other genital system and obstetric disorders H/O macrosomia in infant in prior , currently ([facility]) with other poor obstetric history History of bipolar disorder Personal history of affective disorder 21 weeks gestation of ([facility]) state, incidental Encounter for anatomic survey ([facility]) Encounter for anatomic survey Supervision of high risk in third trimester ([facility])- Primary Unspecified high-risk History of pre-eclampsia Personal history of other genital system and obstetric disorders 29 weeks gestation of ([facility]) state, incidental Pre-existing type 2 diabetes mellitus in in third trimester ([facility]) Diabetes mellitus of mother, complicating , childbirth, or the puerperium, unspecified as to episode of care 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 Pre-existing type 2 diabetes mellitus in in first trimester ([facility]) Diabetes mellitus of mother, complicating , childbirth, or the puerperium, unspecified as to episode of care Tobacco smoking complicating in first trimester ([facility]) Tobacco use disorder complicating , childbirth, or the puerperium, antepartum condition or complication History of recurrent UTI (urinary tract infection) Personal history of urinary (tract) infection 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, unspecified laterality, 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 ([facility]) Herpes simplex type 2 (HSV-2) infection affecting , antepartum, unspecified trimester ([facility]) Supervision of high risk in third trimester ([facility])- Primary Unspecified high-risk Pre-existing type 2 diabetes mellitus in in third trimester ([facility]) Diabetes mellitus of mother, complicating , childbirth, or the puerperium, unspecified as to episode of care Herpes simplex type 2 (HSV-2) infection affecting , antepartum, unspecified trimester ([facility]) H/O macrosomia in infant in prior , currently ([facility]) with other poor obstetric history History of pre-eclampsia Personal history of other genital system and obstetric disorders 31 weeks gestation of ([facility]) state, incidental Supervision of high risk in third trimester ([facility])- Primary Unspecified high-risk Pre-existing type 2 diabetes mellitus in in third trimester ([facility]) Diabetes mellitus of mother, complicating , childbirth, or the puerperium, unspecified as to episode of care Exposure to parvovirus Contact with or exposure to other viral diseases History of pre-eclampsia Personal history of other genital system and obstetric disorders Pre-existing type 2 diabetes mellitus in in third trimester ([facility])- Primary Diabetes mellitus of mother, complicating , childbirth, or the puerperium, unspecified as to episode of care History of pre-eclampsia Personal history of other genital system and obstetric disorders H/O macrosomia in in prior , currently ([facility]) with other poor obstetric history 33 weeks gestation of ([facility]) state, incidental Request for sterilization Herpes simplex type 2 (HSV-2) infection affecting , antepartum, unspecified trimester ([facility]) History of herpes genitalis- Primary Personal history of other infectious and parasitic disease Pre-existing type 2 diabetes mellitus in in third trimester ([facility]) Diabetes mellitus of mother, complicating , childbirth, or the puerperium, unspecified as to episode of care History of pre-eclampsia Personal history of other genital system and obstetric disorders 36 weeks gestation of ([facility]) state, incidental care and examination immediately after delivery ([facility])- Primary care and examination immediately after delivery [facility] Diagnosis Pre-existing type 2 diabetes mellitus in in first trimester ([facility])- Primary Diabetes mellitus of mother, complicating , childbirth, or the puerperium, unspecified as to episode of care History of pre-eclampsia Personal history of other genital system and obstetric disorders H/O macrosomia in in prior , currently ([facility]) with other poor obstetric history 17 weeks gestation of ([facility]) state, incidental Encounter for screening for malformation using ultrasound ([facility]) Obesity affecting in first trimester, unspecified obesity type ([facility])- Primary Herpes simplex type 2 (HSV-2) infection affecting , antepartum, unspecified trimester ([facility]) Pre-existing type 2 diabetes mellitus in in first trimester ([facility]) Diabetes mellitus of mother, complicating , childbirth, or the puerperium, unspecified as to episode of care 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 Encounter for supervision of high risk in first trimester, antepartum ([facility]) 21 weeks gestation of ([facility]) state, incidental Pre-existing type 2 diabetes mellitus in in first trimester ([facility])- Primary Diabetes mellitus of mother, complicating , childbirth, or the puerperium, unspecified as to episode of care Obesity affecting in first trimester, unspecified obesity type ([facility]) History of pre-eclampsia Personal history of other genital system and obstetric disorders H/O macrosomia in in prior , currently ([facility]) with other poor obstetric history History of bipolar disorder Personal history of affective disorder 21 weeks gestation of ([facility]) state, incidental Encounter for anatomic survey ([facility]) Encounter for anatomic survey Supervision of high risk in third trimester ([facility])- Primary Unspecified high-risk History of pre-eclampsia Personal history of other genital system and obstetric disorders 29 weeks gestation of ([facility]) state, incidental Pre-existing type 2 diabetes mellitus in in third trimester ([facility]) Diabetes mellitus of mother, complicating , childbirth, or the puerperium, unspecified as to episode of care 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 Pre-existing type 2 diabetes mellitus in in first trimester ([facility]) Diabetes mellitus of mother, complicating , childbirth, or the puerperium, unspecified as to episode of care Tobacco smoking complicating in first trimester ([facility]) Tobacco use disorder complicating , childbirth, or the puerperium, antepartum condition or complication History of recurrent UTI (urinary tract infection) Personal history of urinary (tract) infection 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, unspecified laterality, 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 ([facility]) Herpes simplex type 2 (HSV-2) infection affecting , antepartum, unspecified trimester ([facility]) Supervision of high risk in third trimester ([facility])- Primary Unspecified high-risk Pre-existing type 2 diabetes mellitus in in third trimester ([facility]) Diabetes mellitus of mother, complicating , childbirth, or the puerperium, unspecified as to episode of care Herpes simplex type 2 (HSV-2) infection affecting , antepartum, unspecified trimester ([facility]) H/O macrosomia in in prior , currently ([facility]) with other poor obstetric history History of pre-eclampsia Personal history of other genital system and obstetric disorders 31 weeks gestation of ([facility]) state, incidental Supervision of high risk in third trimester ([facility])- Primary Unspecified high-risk Pre-existing type 2 diabetes mellitus in in third trimester ([facility]) Diabetes mellitus of mother, complicating , childbirth, or the puerperium, unspecified as to episode of care Exposure to parvovirus Contact with or exposure to other viral diseases History of pre-eclampsia Personal history of other genital system and obstetric disorders Pre-existing type 2 diabetes mellitus in in third trimester ([facility])- Primary Diabetes mellitus of mother, complicating , childbirth, or the puerperium, unspecified as to episode of care History of pre-eclampsia Personal history of other genital system and obstetric disorders H/O macrosomia in in prior , currently ([facility]) with other poor obstetric history 33 weeks gestation of ([facility]) state, incidental Request for sterilization Herpes simplex type 2 (HSV-2) infection affecting , antepartum, unspecified trimester ([facility]) History of herpes genitalis- Primary Personal history of other infectious and parasitic disease Pre-existing type 2 diabetes mellitus in in third trimester ([facility]) Diabetes mellitus of mother, complicating , childbirth, or the puerperium, unspecified as to episode of care History of pre-eclampsia Personal history of other genital system and obstetric disorders 36 weeks gestation of ([facility]) state, incidental care and examination ([facility])- Primary Routine follow-up Request for sterilization Pre-op exam Preoperative examination, unspecified [facility] Diagnosis Pre-existing type 2 diabetes mellitus in in first trimester ([facility])- Primary Diabetes mellitus of mother, complicating , childbirth, or the puerperium, unspecified as to episode of care History of pre-eclampsia Personal history of other genital system and obstetric disorders H/O macrosomia in in prior , currently ([facility]) with other poor obstetric history 17 weeks gestation of ([facility]) state, incidental Encounter for screening for malformation using ultrasound ([facility]) Obesity affecting in first trimester, unspecified obesity type ([facility])- Primary Herpes simplex type 2 (HSV-2) infection affecting , antepartum, unspecified trimester ([facility]) Pre-existing type 2 diabetes mellitus in in first trimester ([facility]) Diabetes mellitus of mother, complicating , childbirth, or the puerperium, unspecified as to episode of care 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 Encounter for supervision of high risk in first trimester, antepartum ([facility]) 21 weeks gestation of ([facility]) state, incidental Pre-existing type 2 diabetes mellitus in in first trimester ([facility])- Primary Diabetes mellitus of mother, complicating , childbirth, or the puerperium, unspecified as to episode of care Obesity affecting in first trimester, unspecified obesity type ([facility]) History of pre-eclampsia Personal history of other genital system and obstetric disorders H/O macrosomia in in prior , currently ([facility]) with other poor obstetric history History of bipolar disorder Personal history of affective disorder 21 weeks gestation of ([facility]) state, incidental Encounter for anatomic survey ([facility]) Encounter for anatomic survey Supervision of high risk in third trimester ([facility])- Primary Unspecified high-risk History of pre-eclampsia Personal history of other genital system and obstetric disorders 29 weeks gestation of ([facility]) state, incidental Pre-existing type 2 diabetes mellitus in in third trimester ([facility]) Diabetes mellitus of mother, complicating , childbirth, or the puerperium, unspecified as to episode of care 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 Pre-existing type 2 diabetes mellitus in in first trimester ([facility]) Diabetes mellitus of mother, complicating , childbirth, or the puerperium, unspecified as to episode of care Tobacco smoking complicating in first trimester ([facility]) Tobacco use disorder complicating , childbirth, or the puerperium, antepartum condition or complication History of recurrent UTI (urinary tract infection) Personal history of urinary (tract) infection 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, unspecified laterality, 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 ([facility]) Herpes simplex type 2 (HSV-2) infection affecting , antepartum, unspecified trimester ([facility]) Supervision of high risk in third trimester ([facility])- Primary Unspecified high-risk Pre-existing type 2 diabetes mellitus in in third trimester ([facility]) Diabetes mellitus of mother, complicating , childbirth, or the puerperium, unspecified as to episode of care Herpes simplex type 2 (HSV-2) infection affecting , antepartum, unspecified trimester ([facility]) H/O macrosomia in infant in prior , currently ([facility]) with other poor obstetric history History of pre-eclampsia Personal history of other genital system and obstetric disorders 31 weeks gestation of ([facility]) state, incidental Supervision of high risk in third trimester ([facility])- Primary Unspecified high-risk Pre-existing type 2 diabetes mellitus in in third trimester ([facility]) Diabetes mellitus of mother, complicating , childbirth, or the puerperium, unspecified as to episode of care Exposure to parvovirus Contact with or exposure to other viral diseases History of pre-eclampsia Personal history of other genital system and obstetric disorders Pre-existing type 2 diabetes mellitus in in third trimester ([facility])- Primary Diabetes mellitus of mother, complicating , childbirth, or the puerperium, unspecified as to episode of care History of pre-eclampsia Personal history of other genital system and obstetric disorders H/O macrosomia in infant in prior , currently ([facility]) with other poor obstetric history 33 weeks gestation of ([facility]) state, incidental Request for sterilization Herpes simplex type 2 (HSV-2) infection affecting , antepartum, unspecified trimester ([facility]) History of herpes genitalis- Primary Personal history of other infectious and parasitic disease Pre-existing type 2 diabetes mellitus in in third trimester ([facility]) Diabetes mellitus of mother, complicating , childbirth, or the puerperium, unspecified as to episode of care History of pre-eclampsia Personal history of other genital system and obstetric disorders 36 weeks gestation of ([facility]) state, incidental 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, unspecified laterality, 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 ([facility])- Primary [facility] Diagnosis Acute chest pain- Primary Unspecified chest pain documented in this encounter [facility] Work Phone: Evaluation note* Diagnosis Pre-existing type 2 diabetes mellitus in in first trimester ([facility])- Primary Diabetes mellitus of mother, complicating , childbirth, or the puerperium, unspecified as to episode of care History of pre-eclampsia Personal history of other genital system and obstetric disorders H/O macrosomia in infant in prior , currently ([facility]) with other poor obstetric history 17 weeks gestation of ([facility]) state, incidental Encounter for screening for malformation using ultrasound ([facility]) Obesity affecting in first trimester, unspecified obesity type ([facility])- Primary Herpes simplex type 2 (HSV-2) infection affecting , antepartum, unspecified trimester ([facility]) Pre-existing type 2 diabetes mellitus in in first trimester ([facility]) Diabetes mellitus of mother, complicating , childbirth, or the puerperium, unspecified as to episode of care 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 Encounter for supervision of high risk in first trimester, antepartum ([facility]) 21 weeks gestation of ([facility]) state, incidental Pre-existing type 2 diabetes mellitus in in first trimester ([facility])- Primary Diabetes mellitus of mother, complicating , childbirth, or the puerperium, unspecified as to episode of care Obesity affecting in first trimester, unspecified obesity type ([facility]) History of pre-eclampsia Personal history of other genital system and obstetric disorders H/O macrosomia in infant in prior , currently ([facility]) with other poor obstetric history History of bipolar disorder Personal history of affective disorder 21 weeks gestation of ([facility]) state, incidental Encounter for anatomic survey ([facility]) Encounter for anatomic survey Supervision of high risk in third trimester ([facility])- Primary Unspecified high-risk History of pre-eclampsia Personal history of other genital system and obstetric disorders 29 weeks gestation of ([facility]) state, incidental Pre-existing type 2 diabetes mellitus in in third trimester ([facility]) Diabetes mellitus of mother, complicating , childbirth, or the puerperium, unspecified as to episode of care 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 Pre-existing type 2 diabetes mellitus in in first trimester ([facility]) Diabetes mellitus of mother, complicating , childbirth, or the puerperium, unspecified as to episode of care Tobacco smoking complicating in first trimester ([facility]) Tobacco use disorder complicating , childbirth, or the puerperium, antepartum condition or complication History of recurrent UTI (urinary tract infection) Personal history of urinary (tract) infection 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, unspecified laterality, 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 ([facility]) Herpes simplex type 2 (HSV-2) infection affecting , antepartum, unspecified trimester ([facility]) Supervision of high risk in third trimester ([facility])- Primary Unspecified high-risk Pre-existing type 2 diabetes mellitus in in third trimester ([facility]) Diabetes mellitus of mother, complicating , childbirth, or the puerperium, unspecified as to episode of care Herpes simplex type 2 (HSV-2) infection affecting , antepartum, unspecified trimester ([facility]) H/O macrosomia in in prior , currently ([facility]) with other poor obstetric history History of pre-eclampsia Personal history of other genital system and obstetric disorders 31 weeks gestation of ([facility]) state, incidental Supervision of high risk in third trimester ([facility])- Primary Unspecified high-risk Pre-existing type 2 diabetes mellitus in in third trimester ([facility]) Diabetes mellitus of mother, complicating , childbirth, or the puerperium, unspecified as to episode of care Exposure to parvovirus Contact with or exposure to other viral diseases History of pre-eclampsia Personal history of other genital system and obstetric disorders Pre-existing type 2 diabetes mellitus in in third trimester ([facility])- Primary Diabetes mellitus of mother, complicating , childbirth, or the puerperium, unspecified as to episode of care History of pre-eclampsia Personal history of other genital system and obstetric disorders H/O macrosomia in infant in prior , currently ([facility]) with other poor obstetric history 33 weeks gestation of ([facility]) state, incidental Request for sterilization Herpes simplex type 2 (HSV-2) infection affecting , antepartum, unspecified trimester ([facility]) History of herpes genitalis- Primary Personal history of other infectious and parasitic disease Pre-existing type 2 diabetes mellitus in in third trimester ([facility]) Diabetes mellitus of mother, complicating , childbirth, or the puerperium, unspecified as to episode of care History of pre-eclampsia Personal history of other genital system and obstetric disorders 36 weeks gestation of ([facility]) state, incidental Gastritis with hemorrhage, unspecified chronicity, unspecified gastritis type- Primary Nausea and vomiting, unspecified vomiting type Gastro-esophageal reflux disease without esophagitis Esophageal reflux SHIRA (generalized anxiety disorder) Generalized anxiety disorder [facility] Exercise-induced asthma- Primary Exercise induced bronchospasm Hyperglycemia due to diabetes mellitus (Multi) Anxiety and depression documented in this encounter [facility] Work Phone: Evaluation note* Diagnosis Pre-existing type 2 diabetes mellitus in in first trimester ([facility])- Primary Diabetes mellitus of mother, complicating , childbirth, or the puerperium, unspecified as to episode of care History of pre-eclampsia Personal history of other genital system and obstetric disorders H/O macrosomia in infant in prior , currently ([facility]) with other poor obstetric history 17 weeks gestation of ([facility]) state, incidental Encounter for screening for malformation using ultrasound ([facility]) Obesity affecting in first trimester, unspecified obesity type ([facility])- Primary Herpes simplex type 2 (HSV-2) infection affecting , antepartum, unspecified trimester ([facility]) Pre-existing type 2 diabetes mellitus in in first trimester ([facility]) Diabetes mellitus of mother, complicating , childbirth, or the puerperium, unspecified as to episode of care 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 Encounter for supervision of high risk in first trimester, antepartum ([facility]) 21 weeks gestation of ([facility]) state, incidental Pre-existing type 2 diabetes mellitus in in first trimester ([facility])- Primary Diabetes mellitus of mother, complicating , childbirth, or the puerperium, unspecified as to episode of care Obesity affecting in first trimester, unspecified obesity type ([facility]) History of pre-eclampsia Personal history of other genital system and obstetric disorders H/O macrosomia in in prior , currently ([facility]) with other poor obstetric history History of bipolar disorder Personal history of affective disorder 21 weeks gestation of ([facility]) state, incidental Encounter for anatomic survey ([facility]) Encounter for anatomic survey Supervision of high risk in third trimester ([facility])- Primary Unspecified high-risk History of pre-eclampsia Personal history of other genital system and obstetric disorders 29 weeks gestation of ([facility]) state, incidental Pre-existing type 2 diabetes mellitus in in third trimester ([facility]) Diabetes mellitus of mother, complicating , childbirth, or the puerperium, unspecified as to episode of care 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 Pre-existing type 2 diabetes mellitus in in first trimester ([facility]) Diabetes mellitus of mother, complicating , childbirth, or the puerperium, unspecified as to episode of care Tobacco smoking complicating in first trimester ([facility]) Tobacco use disorder complicating , childbirth, or the puerperium, antepartum condition or complication History of recurrent UTI (urinary tract infection) Personal history of urinary (tract) infection 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, unspecified laterality, unspecified whether senior living insulin use ([facility]) Herpes simplex type 2 (HSV-2) infection affecting , antepartum, unspecified trimester ([facility]) Supervision of high risk in third trimester ([facility])- Primary Unspecified high-risk Pre-existing type 2 diabetes mellitus in in third trimester ([facility]) Diabetes mellitus of mother, complicating , childbirth, or the puerperium, unspecified as to episode of care Herpes simplex type 2 (HSV-2) infection affecting , antepartum, unspecified trimester ([facility]) H/O macrosomia in in prior , currently ([facility]) with other poor obstetric history History of pre-eclampsia Personal history of other genital system and obstetric disorders 31 weeks gestation of ([facility]) state, incidental Supervision of high risk in third trimester ([facility])- Primary Unspecified high-risk Pre-existing type 2 diabetes mellitus in in third trimester ([facility]) Diabetes mellitus of mother, complicating , childbirth, or the puerperium, unspecified as to episode of care Exposure to parvovirus Contact with or exposure to other viral diseases History of pre-eclampsia Personal history of other genital system and obstetric disorders Pre-existing type 2 diabetes mellitus in in third trimester ([facility])- Primary Diabetes mellitus of mother, complicating , childbirth, or the puerperium, unspecified as to episode of care History of pre-eclampsia Personal history of other genital system and obstetric disorders H/O macrosomia in in prior , currently ([facility]) with other poor obstetric history 33 weeks gestation of ([facility]) state, incidental Request for sterilization Herpes simplex type 2 (HSV-2) infection affecting , antepartum, unspecified trimester ([facility]) History of herpes genitalis- Primary Personal history of other infectious and parasitic disease Pre-existing type 2 diabetes mellitus in in third trimester ([facility]) Diabetes mellitus of mother, complicating , childbirth, or the puerperium, unspecified as to episode of care History of pre-eclampsia Personal history of other genital system and obstetric disorders 36 weeks gestation of ([facility]) state, incidental Insulin controlled gestational diabetes mellitus (GDM) in first trimester ([facility]) [facility] Diagnosis Pre-existing type 2 diabetes mellitus in in first trimester ([facility])- Primary Diabetes mellitus of mother, complicating , childbirth, or the puerperium, unspecified as to episode of care History of pre-eclampsia Personal history of other genital system and obstetric disorders H/O macrosomia in infant in prior , currently ([facility]) with other poor obstetric history 17 weeks gestation of ([facility]) state, incidental Encounter for screening for malformation using ultrasound ([facility]) Obesity affecting in first trimester, unspecified obesity type ([facility])- Primary Herpes simplex type 2 (HSV-2) infection affecting , antepartum, unspecified trimester ([facility]) Pre-existing type 2 diabetes mellitus in in first trimester ([facility]) Diabetes mellitus of mother, complicating , childbirth, or the puerperium, unspecified as to episode of care 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 Encounter for supervision of high risk in first trimester, antepartum ([facility]) 21 weeks gestation of ([facility]) state, incidental Pre-existing type 2 diabetes mellitus in in first trimester ([facility])- Primary Diabetes mellitus of mother, complicating , childbirth, or the puerperium, unspecified as to episode of care Obesity affecting in first trimester, unspecified obesity type ([facility]) History of pre-eclampsia Personal history of other genital system and obstetric disorders H/O macrosomia in in prior , currently ([facility]) with other poor obstetric history History of bipolar disorder Personal history of affective disorder 21 weeks gestation of ([facility]) state, incidental Encounter for anatomic survey ([facility]) Encounter for anatomic survey Supervision of high risk in third trimester ([facility])- Primary Unspecified high-risk History of pre-eclampsia Personal history of other genital system and obstetric disorders 29 weeks gestation of ([facility]) state, incidental Pre-existing type 2 diabetes mellitus in in third trimester ([facility]) Diabetes mellitus of mother, complicating , childbirth, or the puerperium, unspecified as to episode of care 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 Pre-existing type 2 diabetes mellitus in in first trimester ([facility]) Diabetes mellitus of mother, complicating , childbirth, or the puerperium, unspecified as to episode of care Tobacco smoking complicating in first trimester ([facility]) Tobacco use disorder complicating , childbirth, or the puerperium, antepartum condition or complication History of recurrent UTI (urinary tract infection) Personal history of urinary (tract) infection 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, unspecified laterality, 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 ([facility]) Herpes simplex type 2 (HSV-2) infection affecting , antepartum, unspecified trimester ([facility]) Supervision of high risk in third trimester ([facility])- Primary Unspecified high-risk Pre-existing type 2 diabetes mellitus in in third trimester ([facility]) Diabetes mellitus of mother, complicating , childbirth, or the puerperium, unspecified as to episode of care Herpes simplex type 2 (HSV-2) infection affecting , antepartum, unspecified trimester ([facility]) H/O macrosomia in infant in prior , currently ([facility]) with other poor obstetric history History of pre-eclampsia Personal history of other genital system and obstetric disorders 31 weeks gestation of ([facility]) state, incidental Supervision of high risk in third trimester ([facility])- Primary Unspecified high-risk Pre-existing type 2 diabetes mellitus in in third trimester ([facility]) Diabetes mellitus of mother, complicating , childbirth, or the puerperium, unspecified as to episode of care Exposure to parvovirus Contact with or exposure to other viral diseases History of pre-eclampsia Personal history of other genital system and obstetric disorders Pre-existing type 2 diabetes mellitus in in third trimester ([facility])- Primary Diabetes mellitus of mother, complicating , childbirth, or the puerperium, unspecified as to episode of care History of pre-eclampsia Personal history of other genital system and obstetric disorders H/O macrosomia in infant in prior , currently ([facility]) with other poor obstetric history 33 weeks gestation of ([facility]) state, incidental Request for sterilization Herpes simplex type 2 (HSV-2) infection affecting , antepartum, unspecified trimester ([facility]) History of herpes genitalis- Primary Personal history of other infectious and parasitic disease Pre-existing type 2 diabetes mellitus in in third trimester ([facility]) Diabetes mellitus of mother, complicating , childbirth, or the puerperium, unspecified as to episode of care History of pre-eclampsia Personal history of other genital system and obstetric disorders 36 weeks gestation of ([facility]) state, incidental Bacterial sinusitis- Primary Unspecified sinusitis (chronic) Nausea Nausea alone Postnasal drip [facility] Diagnosis Cough, unspecified type- Primary Acute upper respiratory infection Acute upper respiratory infections of unspecified site [facility] Diagnosis Diabetic gastroparesis associated with type 2 diabetes mellitus (Multi)- Primary Type II or unspecified type diabetes mellitus with neurological manifestations, not stated as uncontrolled Anxiety and depression Gastroesophageal reflux disease, unspecified whether esophagitis present documented in this encounter [facility] Work Phone: History and physical note Author Mariajose Nickerson [facility] Note Date/Time October 16, 2024 8:00p [facility] Medical Records Department [address] [place] [address] OB Triage Physician Note 10/16/24 1838 MR#: [id number] Acct: [id number] Name: MELISSA BYRNE Rep #:[id number] : 1995 29 From: Mariajose Nickerson [place] PCP: Dr. Jamari Byrne MD Status:REG CLI Y Location: UH679-9 HPI - General HPI Narrative MELISSA BYRNE, [...] Nickerson; Dr. Jamari Byrne MD ~ Signed [facility] Work Phone: History and physical note Author Mariajose Nickerson [facility] Note Date/Time December 16, 2024 8:47 pm [facility] Medical Records Department [address] [place] [address] OB Triage Physician Note 12/16/242022 MR#: [id number] Acct: [id number] Name: MELISSA BYRNE Rep #:[id number] : 1995 29 From: Mariajose Nickerson CNM PCP: Dr. Jamari Byrne MD Status:REG CLI Y Location: [id number] HPI - General HPI Narrative MELISSA BYRNE, [...] Nickerson; Dr. Jamari Byrne MD ~ Signed [facility] Work Phone: History of Present illness Narrative* Patient is here today for psych hospital follow up * Patient states that she has been under more stress lately, she apparently was talking to multiple different guys, quit all of her medications for a month, she bough kits on [employer] to tatoo herself. She had been at counseling and she had told her counselor that she was thinking about hurting herself. Sister thought she was more on the manic end of the spectrum. She was just discharged on Friday.she will see her counselor tomorrow and she has an upcoming appt with the psychiatrist on November 07. * She was admitted to [facility] for 5 days. She is currently on Prozac 40mg po daily * She had stopped taking her diabetes meds also. She is back on the metformin 1000mg po daily. She was needing short acting insulin in the hospital. * Pt gve her glucometer to her dad so has not been able to check her blood sugars. [facility] Work Phone: History of Present illness NarrativePatient is a 26-year-old who comes in for test of cure for chlamydia and trichomoniasis. Patient reports that she did take the medication Flagyl and the powdered Zithromax. She has also informed her sexual partners. [facility] Work Phone: Hospital Discharge instructions* Attachments The following attachments cannot be sent through Care Everywhere. * Urinary tract infections in (Estonian) * Genital Herpes Discharge Instructions (Estonian) [facility]: Hospital Discharge instructions* Attachments The following attachments cannot be sent through Care Everywhere. * Flu Discharge Instructions, Adult (Estonian) [facility] Work Phone: Hospital Discharge instructions Additional Instructions [facility] Work Phone: Hospital Discharge instructionsAdditional Instructions Date of Discharge: 12/09/24[facility] Work Phone: Hospital Discharge instructionsAdditional Instructions Keep follow up appointment with Dr Gramajo next Friday. Return to the hospital for any worsening symptoms.[facility] Work Phone: Hospital Discharge instructionsAdditional Instructions Please continue all your home medication as directed by your doctor and return to the ER should you have any further concerns or worsening of symptomsWUniversity [facility] Work Phone: Hospital Discharge instructions* Attachments The following attachments cannot be sent through Care Everywhere. * Chest Pain, Adult ED (Estonian) [facility] Work Phone: Instructions* Attachments The following attachments cannot be sent through Care Everywhere. * URI (Upper Respiratory Infection) (E[place]ian) [facility] (narrative)* Consultation (Routine) - Authorized Specialty Diagnoses / Procedures Referred By Contac t Referred To Contact Dermatology Diagnoses Necrobiosis lipoidica Jamari Byrne MD [address] [facility], [place] [address] [place] [address] Radha Patel MD [address] [facility] [place] [address] Referral ID Status Reason Start Date Expiration Date Visits Requested Visits Authorized [id number] Authorized Specialty Services Required 12/25/2023 12/24/2024 1 1 [facility] Work Phone: Reason for referral (narrative)* Outpatient Procedure (Routine) - New Request Specialty Diagnoses / Procedures Referred By Contac t Referred To Contact [facility] Diagnoses Pre-existing type 2 diabetes mellitus in in first trimester [place] [address] [place] [address] [facility] [place] [address] [place] [address] Referral ID Status Reason Start Date Expiration Date Visits Requested Visits Authorized [id number] New Request Auto-Generat ed Referral 06/15/2024 06/15/2025 1 1 [facility] (n[facility]ative[facility] Diagnostic Procedure Only (Routine) - Authorized Specialty Diagnoses / Procedures Referred By Contac t Referred To Contact [facility] Diagnoses Encounter for anatomic survey Procedures OBSTETRIC ULTRASOUND WHI US PREG UTERUS AFTER 1ST TRIMEST 1/1ST GESTATION William Gramajo MD [address] [place] [address] [address] Referral ID Status Reason Start Date Expiration Date Visits Requested Visits Authorized [id number] Authorized Auto-Generat ed Referral 07/13/2024 07/13/2025 1 1 [facility] for referral (narrative)No reason for referral information availableWUniversity [facility] Work Phone: Reason for visit Narrative* Transition of Care (Routine) - Closed Specialty Diagnoses / Procedures Referred By Shell lucia Referred To Contact Diagnoses complication before (HCC) Procedures MPOWER CONSULT William Gramajo MD [address] [place] [address] Phone: tel: fax: Referral ID Status Reason Start Date Expiration Date V isits Requested Visits Authorized [id number] Closed PCP Requested Referral 09/13/2024 09/13/2025 1 1 [facility] for visit Narrative* Diagnostic Procedure Only (Routine) - Closed Specialty Diagnoses / Procedures Referred By Shell lucia Referred To Contact [facility] Diagnoses Supervision of high risk in third trimester ([facility]CC) Pre-existing type 2 diabetes mellitus in in first trimester ([facility]) Procedures BIOPHYSICAL PROFILE US [facility] BIOPHYSICAL PROFILE NON-STRESS TESTING Piper Julian MD [address] [place] [address] Phone: tel: fax: [address] [address] Referral ID Status Reason Start Date Expiration Date V isits Requested Visits Authorized [id number] Closed Auto-Generate d Referral 10/05/2024 10/05/2025 10 1 [facility] Summary Purpose Family History No Family [...] FoundDocuments on File Type Date Recorded Patient Third Steel Pourer Expl anation Advance Directives and Livin g Will 02/10/2019 5:53 PM Documents on File Type Date Recorded Patient Third Steel Pourer Expl anation Advance Directives and Livin g Will 03/21/2019 11:25 PM Documents on File Type Date Recorded Patient Third Steel Pourer Expl anation Advance Directives and Livin g Will 03/21/2019 11:25 PM Documents on File Type Date Recorded Patient Third Steel Pourer Expl anation Advance Directives and Livin g Will 07/19/2020 11:25 PM Documents on File Type Date Recorded Patient Third Steel Pourer Expl anation Advance Directives and Livin g Will 07/19/2020 11:25 PM Documents on File Type Date Recorded Patient Third Steel Pourer Expl anation Advance Directives and Livin g Will 03/11/2019 11:43 AM Advance Directive Response Recorded Date/ Time Do you have a Healthcare Power of Environmental Engineering Technician? No December 07, 2024 1:05pm Advance Directive Response Recorded Date/ Time Do you have a Healthcare Power of Environmental Engineering Technician? No December 07, 2024 1:05pm Do you have a Healthcare Power of Environmental Engineering Technician? No January 20, 2025 10:57pm Advance Directive Response Recorded Date/ Time Do you have a Healthcare Power of Environmental Engineering Technician? No December 07, 2024 1:05pm Do you have a Healthcare Power of Environmental Engineering Technician? No January 20, 2025 10:57pm Do you have a Healthcare Power of Environmental Engineering Technician? No January 23, 2025 9:59pm Advance Directive Response Recorded Date/ Time Do you have a Healthcare Power of Environmental Engineering Technician? No January 26, 2025 6:52pm Do you have a Healthcare Power of Environmental Engineering Technician? No December 07, 2024 1:05pm Do you have a Healthcare Power of Environmental Engineering Technician? No January 20, 2025 10:57pm Do you have a Healthcare Power of Environmental Engineering Technician? No January 23, 2025 9:59pm Discharge Instructions * Attachments The following attachments cannot be sent through Care Everywhere. * Abdominal Pain, Adult (Estonian) * Diabetes with High Blood Sugar (Estonian) documented in this encounter* Instructions* Camilo June PA-C - 02/10/2019 CONTACT YOUR PSYCHIATRIST'S OFFICE IN [place] TOMORROW MORNING TO INFORM THE STAFF OF YOUR EVALUATION IN THE EMERGENCY DEPARTMENT AND NEED FOR AN APPOINTMENT. * Attachments The following attachments cannot be sent through Care Everywhere. * Mood Disorders: General Info (Estonian) documented in this encounter* Instructions* Claude Peralta MD - 03/21/2019 If symptoms do not improve consult with your doctor Return to ER as needed documented in this encounter* Attachments The following attachments cannot be sent through Care Everywhere. * URI (Upper Respiratory Infection) (Estonian) * Hyperglycemia: General Info (Estonian) documented in this encounter* Attachments The following attachments cannot be sent through Care Everywhere. * Anxiety Disorder (Estonian) documented in this encounter* Instructions* Hailey Paiz, BUSINESS OBJECTS DEVELOPER - 10/05/2018 Follow-up with your PCP in the next 1 to 2 days for further evaluation of your diabetes. * Attachments The following attachments cannot be sent through Care Everywhere. * Diabetes: Sick Care (Estonian) * Glycemic Index: General Info (Estonian) * Diabetes: Type 2: General Info (Estonian) * Diabetes: Heart Disease: General Info (Estonian) * Hyperglycemia: General Info (Estonian) documented in this encounter Assessments Diagnosis Lower [...] PSG SEIZURE MONTAGE Maty Chavez MD [address] [place] [address] Sleep Medicine [address] [place] [address] Status Reason Specialty Diagnoses / Procedures Referred By Contact Referred To Contact Pending Review Specialty Services Required/Patien t's Best Interest Neurology Diagnoses Seizure (HCC) Procedures EEG (Standard) Srini Medina MD 335 [facility] SAVO [address] [address] Eeg Neurodiag 335 [place] [address] Status Reason Specialty Diagnoses / Procedures Referred By Contact Referred To Contact Authorized Sleep Medicine Diagnoses Seizure (HCC) Srini Medina MD [address] [place] [address] Maty Chavez MD [address] [place] [address] Specialty Diagnoses / Procedures Referred By Contac t Referred To Contact Diagnoses Insulin controlled gestational diabetes mellitus (GDM) in first trimester Procedures ENDOCRINOLOGY DIETITIAN VISIT (MNT) MEDICAL NUTRITION ASSMT&IVNTJ INDIV EACH 15 [place] MEDICAL NUTRITION ASSMT&IVNTJ INDIV EACH 15 [place] MEDICAL NUTRITION ASSMT&IVNTJ INDIV EACH 15 [place] MEDICAL NUTRITION ASSMT&IVNTJ INDIV EACH 15 [place] Kelsy Guillermo, DO [address] [place] [address] Referral ID Status Reason Start Date Expiration Date Visits Requested Visits Authorized [id number] Authorized PCP Requested Referral 4 05/03/2025 1 1 Specialty Diagnoses / Procedures Referred By Contac t Referred To Contact Diagnoses Encounter for supervision of high risk in first trimester, antepartum H/O macrosomia in in prior , currently Pre-existing type 2 diabetes mellitus in in first trimester History of pre-eclampsia Procedures CONSULT TO MATERNAL MEDI OFFICE/OUTPATIENT NEW HIGH MDM 60 MINUTES Zayda Parker APRN.BUSINESS OBJECTS DEVELOPER [address] [address] Referral ID Status Reason Start Date Expiration Date Visits Requested Visits Authorized [id number] Authorized PCP Requested Referral Auto-Generate d Referral 4 05/07/2025 1 1 Specialty Diagnoses / Procedures Referred By Contac t Referred To Contact [facility] Diagnoses with uncertain dates in first trimester Procedures NUCHAL TRANSLUCENCY WHI US NUCHAL TRANSLUCENCY 1ST GESTATION Zayda Parker APRN.CNP [address] [place] [address] [facility] [address] [place] [address] Referral ID Status Reason Start Date Expiration Date Visits Requested Visits Authorized [id number] Authorized Auto-Generat ed Referral 4 05/07/2025 1 1 Specialty Diagnoses / Procedures Referred By Shell t Referred To Contact [facility] Diagnoses with uncertain dates in first trimester Procedures OBSTETRIC ULTRASOUND WHI US PREG UTERUS AFTER 1ST TRIMEST GESTATION Shwetha ParkerilySARAHY.BUSINESS OBJECTS DEVELOPER [address] [address] [facility] [address] [place] [address] Referral ID Status Reason Start Date Expiration Date Visits Requested Visits Authorized [id number] New Request Auto-Generat ed Referral 4 05/07/2025 [...] or abnormal muscle tone. Coordination: Coordination normal. Ofkffh-Mmfn-Qxnfzg Test normal. Gait: Gait is intact. Gait [...] time. Impression/diagnosis, plans were explained and discussed. [place] seizure precautions. Avoid triggers and precipitating factors. [...] Portions of this chart was created using [employer] voice recognition software. Occasional wrong-word or sound-like [...] last pap was 3-4 years ago in [place] that the patient states was normal. She [...] section and content) DATE CREATED AUTHOR 12/02/2017 [facility] DATE CREATED AUTHOR AUTHOR'S ORGANIZ ATION 12/17/2017 [facility] DATE CREATED AUTHOR AUTHOR'S ORGANIZ ATION 01/24/2018 [facility] DATE CREATED AUTHOR AUTHOR'S ORGANIZ ATION 05/18/2018 [facility] DATE CREATED AUTHOR AUTHOR'S ORGANIZ ATION 07/29/2018 [facility] DATE CREATED AUTHOR AUTHOR'S ORGANIZ ATION 01/02/2019 [facility] DATE CREATED AUTHOR AUTHOR'S ORGANIZ ATION 03/18/2020 [facility] DATE CREATED AUTHOR AUTHOR'S ORGANIZ ATION 07/05/2020 [facility] DATE CREATED AUTHOR AUTHOR'S ORGANIZ ATION 07/20/2020 [facility] DATE CREATED AUTHOR AUTHOR'S ORGANIZ ATION 08/05/2021 [facility] DATE CREATED AUTHOR AUTHOR'S ORGANIZ ATION 10/28/2021 [facility] DATE CREATED AUTHOR AUTHOR'S ORGANIZ ATION 05/31/2022 [facility] DATE CREATED AUTHOR AUTHOR'S ORGANIZ ATION 08/18/2022 [facility] DATE CREATED AUTHOR AUTHOR'S ORGANIZ ATION 12/04/2022 [facility] DATE CREATED AUTHOR AUTHOR'S ORGANIZ ATION 04/19/2024 [facility] DATE CREATED AUTHOR AUTHOR'S ORGANIZ ATION 04/26/2024 [facility] DATE CREATED AUTHOR AUTHOR'S ORGANIZ ATION 10/15/2024 [facility] DATE CREATED AUTHOR AUTHOR'S ORGANIZ ATION 11/07/2024 [facility] DATE CREATED AUTHOR AUTHOR'S ORGANIZ ATION 01/30/2025 [facility] DATE CREATED AUTHOR AUTHOR'S ORGANIZ ATION 02/22/2025 [facility] DATE CREATED AUTHOR AUTHOR'S ORGANIZ ATION 03/13/2025 [facility] DATE CREATED AUTHOR AUTHOR'S ORGANIZ ATION 03/14/2025 [facility] DATE CREATED AUTHOR AUTHOR'S ORGANIZ ATION 03/18/2025 [facility] DATE CREATED AUTHOR AUTHOR'S ORGANIZ ATION 04/09/2025 [facility] Reason for Visit (unrecogniz ed section and content) Reason Comments Abdominal Pain lower abs pain x 7 d ays, nausea no vomitting. Reason Comments Suicidal Reason Comments Nausea Abdominal Pain lower abdomen Status Reason Specialty Diagnoses / Procedures Referred By Contact Referred To Contact Closed Sleep Medicine Diagnoses MG (obstructive sleep apnea) MG Procedures PSG SEIZURE MONTAGE Maty Chavez MD [address] [place] [address] Sleep Medicine 335 [place] [address] Status Reason Specialty Diagnoses / Procedures Referred By Contact Referred To Contact Pending Review Specialty Services Required/Patien t's Best Interest Neurology Diagnoses Seizure (HCC) Procedures EEG (Standard) Srini Medina MD [facility] [address] [address] Eeg Neurodiag [address] [place] [address] Reason Comments Shortness of Breath has been [...] Diagnoses Seizure (HCC) Rich Ng, DO [address] [place] [address] Srini Medina MD 335 [facility] [address] [address] Reason Comments Mental Health Problem Reason Comments [...] Care Jamari Byrne MD [address] [facility] [place] [address] [place] [address] Referral ID Status Reason Start Date Expiration Date V isits Requested Visits Authorized [id number] Authorized 09/09/2022 03/08/2023 1 1 Reason Comments [...] CONSULT TO ENDOCRINOLOGY OFFICE/OUTPATIENT [facility] 60 MINUTES William Gramajo MD [address] [place] [address] Referral ID Status Reason Start Date Expiration Date V isits Requested Visits Authorized [id number] Closed PCP Requested Referral 04/20/2024 04/20/2025 1 [...] US NUCHAL TRANSLUCENCY 1ST GESTATION Zayda Parker APRN.BUSINESS OBJECTS DEVELOPER [address] [place] [address] [facility] [address] [place] [address] Referral ID Status Reason Start Date Expiration Date V isits Requested Visits Authorized [id number] Closed Auto-Generat ed Referral Patient Cleared - Admin/Chairm an/Director advise to proceed or did not respond 06/15/2024 06/08/2025 1 1 Reason Comments Nuchal/Consult to [facility] Specialty Diagnoses / Procedures Referred By Shell lucia Referred To Contact MATERNAL MEDICINE Diagnoses Encounter for supervision of high risk in first trimester, antepartum H/O macrosomia in in prior , currently Pre-existing type 2 diabetes mellitus in in first trimester History of pre-eclampsia Procedures CONSULT TO MATERNAL MEDI OFFICE/OUTPATIENT NEW HIGH MDM 60 MINUTES OFFICE/OUTPATIENT ESTABLISHED HIGH MDM 40 MIN Zayda Parker APRN.BUSINESS OBJECTS DEVELOPER [address] [place] [address] Lens Grinding Machine Operator [facility] [address] [place] [address] Referral ID Status Reason Start Date Expiration Date Visits Requested Visits Authorized [id number] Authorized PCP Requested Referral Auto-Generate d Referral [...] UTERUS AFTER 1ST TRIMEST GESTATION Zayda Parker APRN.BUSINESS OBJECTS DEVELOPER [address] [place] [address] [facility] [address] [place] [address] Referral ID Status Reason Start Date Expiration Date Visits Requested Visits Authorized [id number] Authorized Auto-Generat ed Referral 06/29/2024 06/08/2025 20 [...] William Gramajo MD [address] [place] [address] Phone: tel: fax: [place] [id number] [place] [address] Referral ID Status Reason Start Date Expiration Date V isits Requested Visits Authorized [id number] Closed Auto-Generate d Referral 07/13/2024 07/13/2025 1 [...] William Gramajo MD [address] [place] [address] Phone: tel: fax: [facility] [address] [place] [address] Referral ID Status Reason Start Date Expiration Date V isits Requested Visits Authorized [id number] Closed Auto-Generate d Referral 08/10/2024 08/10/2025 4 [...] Referred By Shell t Referred To Contact [facility] Diagnoses History of pre-eclampsia 29 weeks gestation of ([facility]) Pre-existing type 2 diabetes mellitus in in third trimester ([facility]) Supervision of high risk in third trimester ([facility]) Procedures ECG COMPLETE ECG ROUTINE ECG W/LEAST 12 LDS W/I&R Piper Julian MD [address] [place] [address] Phone: tel: fax: [facility] [address] [place] [address] Referral ID Status Reason Start Date Expiration Date V isits Requested Visits Authorized [id number] Closed Auto-Generate d Referral 10/04/2024 10/04/2025 1 1 Reason Onset Date Comments Care 11/02/2024 Reason Comments Breast Pump Reason Onset Date Comments Care 11/05/2024 Specialty Diagnoses / Procedures Referred By Shell t Referred To Contact [facility] Diagnoses Supervision of high risk in third trimester ([facility]) Pre-existing type 2 diabetes mellitus in in first trimester ([facility]) Procedures BIOPHYSICAL PROFILE US [facility] BIOPHYSICAL PROFILE NON-STRESS TESTING Piper Julian MD [address] [place] [address] Phone: tel: fax:[phone] [facility] [address] [place] [address] Referral ID Status Reason Start Date Expiration Date V isits Requested Visits Authorized [id number] Closed Auto-Generate d Referral 10/05/2024 10/05/2025 10 [...] [place]; chest pain; EKG done01/29/25 [facility]; acute sinusitis, URI Reason Comments insulin concern [...] Consult Notes (unrecognized section and content) ED [facility] Initial Assessment Date: 02/10/2019 Time: 7:24 PM Patient Name: Melissa Kaur Date of : 1995 Sex: Female Admit Date/Time: 02/10/2019 5:04 PM GENERAL INFORMATION General Information Rejoiner Needs: Not needed Information Provided By: Patient, Patient Support System: Current Living Arrangements: Lives with and 2 elderly friends Type of Residence: Private residence Name and Contact of Collateral Provider: Jorge () [phone] LEGAL STATUS Voluntary DIAGNOSIS/ACTIVE PROBLEM LIST Hospital [...] Previous Psychiatric Medications: Anti-depressants Previous Psychiatric Hospitalizations: [facility] December 2018 Current Psychiatric Medications: Prozac [...] Conflict Resolution (Coping Skills): Yes Cultural and Sikh Beliefs: Yes Access to Weapons: No TREATMENT [...] Jones, updated. documented in this encounter ED [facility] Initial Assessment Date: 03/11/2019 Time: 3:21 PM Patient Name: Melissa Kaur Date of : 1995 Sex: Female Admit Date/Time: 03/11/2019 10:50 AM GENERAL INFORMATION General Information Rejoiner Needs: Not needed Information Provided By: Patient Patient Support System: Current Living Arrangements: Lives with and elderly friends Type of Residence: Private residence Name and Contact of Collateral Provider: Mahendra (Spouse) [phone] LEGAL STATUS Voluntary DIAGNOSIS/ACTIVE PROBLEM LIST Hospital [...] she will be attending. Pt follows at [facility] counseling every 2 weeks. Pt sees a counselor and psychiatrist. Pt is prescribed Risperdal and takes it as prescribed. Pt reports she has been hospitalized at [facility] int he past. 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 Pt is currently unemployed. PAST PSYCHIATRIC HISTORY Past Psychiatric History Previous Psychiatric Diagnosis: Depression, Pt states schizophrenia Previous Psychiatric Medications: Anti-depressants Previous Psychiatric Hospitalizations: [facility] Current Psychiatric Medications: Risperdal ALCOHOL/DRUG ABUSE [...] Conflict Resolution (Coping Skills): Yes Cultural and Sikh Beliefs: Yes Access to Weapons: No TREATMENT RECOMMENDATIONS AND CLINICAL SUMMARY Treatment Recommendations and Clinical Summary Current Recommendations: Referral for outpatient counseling RATIONALE/PLAN FOR TREATMENT: Spoke to DAYAMI Camacho, about Pt not wanting to stay at the hospital. Gisselle states she does not feel she can completed an involuntary admission on the Pt and will discharge her. Did call [facility] with Pt's permission to see if [...] ED Notes (unrecognized secti on and content) Die Mechanic in room thirty one Patient in bathroom at this time Bathroom at this time Nurse doing blood draw at this time Nurse in room with patient Patient now in room with PA Camilo Patient changed into [place]own. PT REPORTS, THOUGHTS TO HARM SELF. SENT TO [facility] LAST December FOR SUICIDAL IDEATIONS. TODAY COULDN'T GET A HOLD OF COUNSELOR, DIDN'T KNOW WHAT ELSE TO DO, CAME TO ED FOR HELP. PSA taking Vitals at this time. documented in this encounter ED PROVIDER NOTE [facility] EMERGENCY DE[facility] NAME: Melissa Kaur AGE: 24 y.o. : 1995 VISIT DATE: 03/21/2019 CSN: [id number] PCP: Verona Hilliard MD Chief Complaint Patient [...] Yellow Clarity, Urine Hazy (A) Clear Specific [place] 1.020 1.005 - 1.025 pH, Urine 6.0 [...] not been specified. Claude Peralta MD 03/21/19 8342 Pt states abdominal pain, nausea for 3 days with vomiting starting today. documented in this encounter PT AWAKE BUT RESTFUL ON CART. RESPS UNLABORED. NO VISIBLE DISTRESS OBSERVED AND NO C/O VOICED. DISCHARGE COMPLETED. PT RESTFUL WITHOUT C/O OR NEEDS VOICED. WAITING ON COMPLETION OF TEST RESULTS AND RE-EVAL / DISPOSITION. ED PROVIDER NOTE [facility] EM[facility]GENCY [facility] NAME: Melissa Kaur AGE: 23 y.o. : 1995 VISIT DATE: 10/06/2018 CSN: [id number] PCP: Verona Hilliard MD Chief Complaint Patient presents with Shortness of Breath has been feeling SOB all day Hyperglycemia pt report s high BS, states it was 201 at home HPI patient is a 23-year-old with history of type 2 diabetes dsc-kcjqnqr-tuipzzfca anxiety depression reactive airway disease who presents [...] Yellow Clarity, Urine Hazy (A) Clear Specific [place] 1.014 1.005 - 1.025 pH, Urine 5.0 [...] Why: If symptoms worsen [address] [facility] [address] Contact information for after-discharge care Follow-up information [...] Assessment complete. call light in reach. [facility]. 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 CSN: [id number] PCP: Verona Hilliard MD History: Chief Complaint: [...] they are currently manageable. Patient goes to [facility] for counseling and psychiatry care. Patient reports [...] and atraumatic. Nose: Nose normal. Mouth/Throat: Lips: [place]. Mouth: Mucous membranes are moist. Pharynx: Oropharynx [...] Result Value Clarity, Urine Hazy (*) Specific [place] 1.029 (*) Ketones, Urine Trace (*) Urobilinogen, [...] baseline and feels safe to go home. chemical tank worker called and spoke with [facility] and psychiatry [facility]. patient is to keep her follow-up appointment [...] Gisselle Monterroso CNP ED Advanced Practice Provider [facility] Emergency Department (Please note that portions of this note have been completed with a voice recognition software. Efforts were made to correct any errors, but occasionally words are mis-transcribed.) Gisselle Monterroso CNP 03/11/19 1301 Nurse now doing a blood draw TRANSLATION DIRECTOR was in room with patient Die Mechanic in room with patient DAYAMI Camacho [facility] Pt in blue gown , sitter [...] the room: IV pole; Nurse windows server support technician Misc. items removed from the room: Removable [...] CRITICAL LAB: GLUCOSE = 460; READBACK COMPLETED; TRANSLATION DIRECTOR, HAILEY MADE AWARE. ABG's completed. Patient to ED due to Heart racing And SOB. Dizziness and lightheaded noted Ambulated to restroom and backwith stand by assist. States is lightheaded [facility] assisting with IV. Nicholas. Beginning assessments [facility] ED PAUL Note: NAME: Melissa Kaur 23 y.o. CSN: [id number] PCP: Verona Hilliard MD History: Chief Complaint: [...] Procedure Abnormality Status --------- ------ CBC Auto Differential[[id number]] Final result Please view results for these tests on the individual orders. POC GLUCOSE POC GLUCOSE POC ARTERIAL BLOOD GAS PANEL-PULM - RALS CBC WITH AUTO DIFFERENTIAL XR Chest AP/PA and LAT Non-public Result No acute cardiopulmonary disease. Workstation ID: [id number] MDM: ED Course as of Oct 05 [address] [place] Oct 04, [id number] Glucose: (!!) 442 [SS] [...] home. ELIF Wilhelm ED Advanced Practice Provider [facility] Emergency Department (Please note that portions [...] 14 days? No Have you been/visited a group home in the past two weeks? No [...] of the above questions, consult the ordering ems manager to determine if patient needs COVID [...] section and content) Associated Order(s): EEG (STANDARD) [facility] EEG Report Reason for EEG: Spells [...] Care Teams (unrecognized sec tion and content) 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 Start Date End Date Marshall Brown MD [address] [place] [id number] PCP - General 05/15/22 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 Start Date End Date Jamari Byrne MD [facility], [place] [address] [place] [address] PCP - General 11/12/21 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 Start Date End Date Jamari Byrne MD [address] [facility], [place] [address] [place] [address] PCP - General 11/12/21 Jamari Byrne MD [address] [facility] [place] [address] [place] [address] PCP - [employer] [facility] PCP 10/07/22 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 Start Date End Date Jamari Byrne MD [address] [facility], [place] [address] [place] [phone] PCP - General 11/12/21 Jamari Byrne MD [address] [facility], [place] [address] [place] [phone] PCP - [employer] PCP 10/07/22 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 Start Date End Date Jamari Byrne MD [address] [facility], [place] [address] [place] [phone] PCP - General 11/12/21 Jamari Byrne MD [address] [facility] [place] [address] [place] [address] PCP - [employer] [facility] PCP 10/07/22 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 Start Date End Date Jamari Byrne MD [address] [place] [phone] PCP - General Family Medicine 08/19/23 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 Start Date End Date Jamari Byrne MD [address] [facility] [place] [address] [place] [address] PCP - General 11/12/21 Jamari Byrne MD [address] [facility] [place] [address] [place] [address] PCP - [employer] [facility] PCP 10/07/22 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 Start Date End Date Jamari Byrne MD [address] [place] [phone] PCP - General Family Medicine 08/19/23 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 Start Date End Date Jamari Byrne MD [address] [facility] [place] [address] [place] [phone] PCP - General 11/12/21 Jamari Byrne MD [address] [facility] [place] [address] [place] [phone] PCP - [employer] [facility] PCP 10/07/22 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 Start Date End Date Jamari Byrne MD [address] [place] [phone] PCP - General Family Medicine 08/19/23 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 Start Date End Date Jamari Byrne MD [address] [place] [phone] PCP - General Family Medicine 08/19/23 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 Start Date End Date Jamari Byrne MD [address] [facility] [place] [address] [place] [address] PCP - General 11/12/21 Jamari Byrne MD [address] [facility] [place] [address] [place] [address] PCP - [employer] PCP 10/07/22 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 Start Date End Date Jamari Byrne MD [address] [place] [address] PCP - General Family Medicine 08/19/23 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 Start Date End Date Jamari Byrne MD [address] [place] [address] PCP - General Family Medicine 08/19/23 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 Start Date End Date Jamari Byrne MD [address] [facility] [place] [address] [place] [address] PCP - General 11/12/21 Jamari Byrne MD [address] [facility] [place] [address] [place] [address] PCP - [employer] PCP 10/07/22 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 Start Date End Date Jamari Byrne MD [address] [place] [address] PCP - General Family Medicine 08/19/23 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 Start Date End Date Jamari Byrne MD [address] [place] [phone] PCP - General Family Medicine 08/19/23 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 Start Date End Date Jamari Byrne MD [address] [place] [phone] PCP - General Family Medicine 08/19/23 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 Start Date End Date Jamari Byrne MD [address] [place] [phone] PCP - General Family Medicine 08/19/23 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 Start Date End Date Jamari Byrne MD [address] [place] [phone] PCP - General Family Medicine 08/19/23 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 Start Date End Date Jamari Byrne MD [address] [place] [phone] PCP - General Family Medicine 08/19/23 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 Start Date End Date Jamari Byrne MD [address] [facility], [place] [phone] PCP - General 11/12/21 Jamari Byrne MD [address] [facility], [facility] [address] [place], [facility]05 [facility] 10/07/22 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 Start Date End Date Jamari Byrne MD [address] [facility] [place] [address] [place] [address] PCP - General 11/12/21 Jamari Byrne MD [address] [facility] [place] [address] [place] [address] [facility] - [facility] PCP 10/07/22 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 Start Date End Date Jamari Byrne MD [address] [facility] [place] [address] [place], [facility] PCP - General 11/12/21 Jamari Byrne MD [address] [facility], [facility] [address] [place], [facility]05 PCP - [facility] PCP 10/07/22 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 Start Date End Date Jamari Byrne MD [address] [place] [address] PCP - General Family Medicine 08/19/23 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 Start Date End Date Jamari Byrne MD [address] [place] [phone] PCP - General Family Medicine 08/19/23 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 Start Date End Date Jamari Byrne MD [address] [place] [phone] PCP - General Family Medicine 08/19/23 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 Start Date End Date Jamari Byrne MD [address] [place] [address] PCP - General Family Medicine 08/19/23 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 Start Date End Date Jamari Byrne MD [address] [place] [address] PCP - General Family Medicine 08/19/23 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 Start Date End Date Jamari Byrne MD [address] [facility], [facility] [address] [place] [address] PCP - General 11/12/21 Jamari Byrne MD [address] [facility], [facility] [address] [place] [address] PCP - [facility] PCP 10/07/22 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 Start Date End Date Jamari Byrne MD [address] [place] [phone] PCP - General Family Medicine 08/19/23 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 Start Date End Date Jamari Byrne MD [address] [place] [phone] PCP - General Family Medicine 08/19/23 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 Start Date End Date Jamari Byrne MD [address] [place] [address] PCP - General Family Medicine 08/19/23 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 Start Date End Date Jamari Byrne MD [address] [place] [address] PCP - General Family Medicine 08/19/23 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 Start Date End Date Jamari Byrne MD [address] [place] [address] PCP - General Family Medicine 08/19/23 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 Start Date End Date Jamari Byrne MD [address] [place] [address] PCP - General Family Medicine 08/19/23 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 Start Date End Date Jamari Byrne MD [address] [place] [address] PCP - General Family Medicine 08/19/23 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 Start Date End Date Jamari Byrne MD [address] [place] [address] PCP - General Family Medicine 08/19/23 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 Start Date End Date Jamari Byrne MD [address] [place] [address] PCP - General Family Medicine 08/19/23 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 Start Date End Date Jamari Byrne MD [address] [place] [address] PCP - General Family Medicine 08/19/23 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 Start Date End Date Jamari Byrne MD [address] [place] [address] PCP - General Family Medicine 08/19/23 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 Start Date End Date Jamari yBrne MD [address] [place] [phone] PCP - General Family Medicine 08/19/23 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 Start Date End Date Jamari Byrne MD [address] [place] [phone] PCP - General Family Medicine 08/19/23 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 Start Date End Date Jamari Byrne MD [address] [facility] [place] [address] [place], [place] [address] PCP - General 11/12/21 Jamari Byrne MD [address] [facility] [place] [address] [place], [place] [address] [facility] 10/07/22 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 Start Date End Date Jamari Byrne MD [address] [place] [phone] PCP - General Family Medicine 08/19/23 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 Start Date End Date Jamari Byrne MD [address] [place] [phone] PCP - General Family Medicine 08/19/23 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 Start Date End Date Jamari Byrne MD [address] [place] [phone] PCP - General Family Medicine 08/19/23 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 Start Date End Date Jamari Byrne MD [address] [place] [phone] PCP - General Family Medicine 08/19/23 Team [...] September 24, 2024 End: September 24, 2024 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 Start Date End Date Jamari Byrne MD [address] [place] [phone] PCP - General Family Medicine 08/19/23 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 Start Date End Date Jamari Byrne MD [address] [place] [phone] PCP - General Family Medicine 08/19/23 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 Start Date End Date Jamari Byrne MD [address] [place] [phone] PCP - General Family Medicine 08/19/23 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 Start Date End Date Jamari Byrne MD [address] [place] [phone] PCP - General Family Medicine 08/19/23 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 Start Date End Date Jamari Byrne MD [address] [place] [phone] PCP - General Family Medicine 08/19/23 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 Start Date End Date Jamari Byrne MD [address] [place] [phone] PCP - General Family Medicine 08/19/23 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 Start Date End Date Jamari Byrne MD [address] [place] [phone] PCP - General Family Medicine 08/19/23 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 Start Date End Date Jamari Byrne MD [address] [place] [phone] PCP - General Family Medicine 08/19/23 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 Start Date End Date Jamari Byrne MD [address] [place] [address] PCP - General Family Medicine 08/19/23 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 Start Date End Date Jamari Byrne MD [address] [place] [address] PCP - General Family Medicine 08/19/23 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 Start Date End Date Jamari Byrne MD [address] [place] [address] PCP - General Family Medicine 08/19/23 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 Start Date End Date Jamari Byrne MD [address] [place] [address] PCP - General Family Medicine 08/19/23 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 Start Date End Date Jamari Byrne MD [address] [place] [address] PCP - General Family Medicine 08/19/23 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 Start Date End Date Jamari Byrne MD [address] [place] [address] PCP - General Family Medicine 08/19/23 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 Start Date End Date Jamari Byrne MD [address] [place] [address] PCP - General Family Medicine 08/19/23 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 Start Date End Date Jamari Byrne MD [address] [place] [address] PCP - General Family Medicine 08/19/23 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 Start Date End Date Jamari Byrne MD [address] [place] [address] PCP - General Family Medicine 08/19/23 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 Start Date End Date Jamari Byrne MD [address] [place] [address] PCP - General Family Medicine 08/19/23 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 Start Date End Date Jamari Byrne MD [address] [place] [address] PCP - General Family Medicine 08/19/23 Team Status: Inactive Member Role Status Dates Dr. Jamari Byrne MD Primary Care Provider Active Start: November 15, 2024 End: November 15, 2024 Dr. Whit Patel MD Attending Provider Ac tive Start: November 15, 2024 End: November 15, 2024 Dr. 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 Start Date End Date Jamari Byrne MD [address] [place] [address] PCP - General Family Medicine 08/19/23 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 Start Date End Date Jamari Byrne MD [address] [place] [address] PCP - General Family Medicine 08/19/23 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 Start Date End Date Jamari Byrne MD [address] [place] [address] PCP - General Family Medicine 08/19/23 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 Start Date End Date Jamari Byrne MD [address] [place] [address] PCP - General Family Medicine 08/19/23 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 Start Date End Date Jamari Byrne MD [address] [place] [address] PCP - General Family Medicine 08/19/23 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 Start Date End Date Jamari Byrne MD [address] [place] [address] PCP - General Family Medicine 08/19/23 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 Start Date End Date Jamari Byrne MD [address] [facility] [address] PCP - General Family Medicine 08/19/23 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 Start Date End Date Jamari Byrne MD [address] [place] [address] PCP - General Family Medicine 08/19/23 Team [...] December 16, 2024 End: December 16, 2024 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 Start Date End Date Jamari Byrne MD [address] [place] [address] PCP - General Family Medicine 08/19/23 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 Start Date End Date Jamari Byrne MD [address] [place] [phone] PCP - General Family Medicine 08/19/23 Team [...] January 20, 2025 End: January 21, 2025 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 Start Date End Date Jamari Byrne MD [address] [place] [address] PCP - General Family Medicine 08/19/23 Team [...] January 23, 2025 End: January 23, 2025 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 Start Date End Date Jamari Byrne MD [address] [facility], [place] [address] PCP - General 11/12/21 Jamari Byrne MD [address] [facility], [address] [address] PCP - [facility] PCP 08/07/24 Team Status: Inactive [...] January 26, 2025 End: January 26, 2025 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 Start Date End Date Jamari Byrne MD [address] [place] [address] PCP - General Family Medicine 08/19/23 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 Start Date End Date Jamari Byrne MD [address] [place] [address] PCP - General Family Medicine 08/19/23 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 Start Date End Date Jamari Byrne MD [address] [facility], [place] [address] [place] [address] PCP - General 11/12/21 Jamari Byrne MD [address] [facility], [place] [address] [place] [address] PCP - [facility] APONTEO PCP 08/07/24 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 Start Date End Date Jamari Byrne MD [address] [place] [address] PCP - General Family Medicine 08/19/23 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 Start Date End Date Jamari Byrne MD [address] [place] [address] PCP - General Family Medicine 08/19/23 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 Start Date End Date Jamari Byrne MD [address] [facility], [place] [address] [place] [address] PCP - General Family Medicine 01/29/25 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 Start Date End Date Jamari Byrne MD [address] [facility], [facility] [address] [place] [phone] PCP - General 11/12/21 Jamari yBrne MD [address] [facility], [facility] [address] [place] [phone] PCP - [facility] PCP 08/07/24 Source Comments (unrecognize d section and content) In the event this informatio n is protected by the Federal Confidentiality of Alcohol and Drug Abuse Patient Records regulations: The Federal rules restrict any use of the information to criminally investigate or prosecute any alcohol or drug abuse patient.[facility] the event this information is protected by the Federal Confidentiality of Alcohol and Drug Abuse Patient Records regulations: The Federal rules restrict any use of the information to criminally investigate or prosecute any alcohol or drug abuse patient.[facility] HospitalIn the event this information is protected by the Federal Confidentiality of Alcohol and Drug Abuse Patient Records regulations: The Federal rules restrict any use of the information to criminally investigate or prosecute any alcohol or drug abuse patient.[facility] HospitalIn the event this information is protected by the Federal Confidentiality of Alcohol and Drug Abuse Patient Records regulations: The Federal rules restrict any use of the information to criminally investigate or prosecute any alcohol or drug abuse patient.[facility] HospitalIn the event this information is protected by the Federal Confidentiality of Alcohol and Drug Abuse Patient Records regulations: The Federal rules restrict any use of the information to criminally investigate or prosecute any alcohol or drug abuse patient.[facility] HospitalIn the event this information is protected by the Federal Confidentiality of Alcohol and Drug Abuse Patient Records regulations: The Federal rules restrict any use of the information to criminally investigate or prosecute any alcohol or drug abuse patient.[facility] HospitalIn the event this information is protected by the Federal Confidentiality of Alcohol and Drug Abuse Patient Records regulations: The Federal rules restrict any use of the information to criminally investigate or prosecute any alcohol or drug abuse patient.[facility] HospitalIn the event this information is protected by the Federal Confidentiality of Alcohol and Drug Abuse Patient Records regulations: The Federal rules restrict any use of the information to criminally investigate or prosecute any alcohol or drug abuse patient.[facility] HospitalIn the event this information is protected by the Federal Confidentiality of Alcohol and Drug Abuse Patient Records regulations: The Federal rules restrict any use of the information to criminally investigate or prosecute any alcohol or drug abuse patient.[facility] HospitalIn the event this information is protected by the Federal Confidentiality of Alcohol and Drug Abuse Patient Records regulations: The Federal rules restrict any use of the information to criminally investigate or prosecute any alcohol or drug abuse patient.[facility] HospitalIn the event this information is protected by the Federal Confidentiality of Alcohol and Drug Abuse Patient Records regulations: The Federal rules restrict any use of the information to criminally investigate or prosecute any alcohol or drug abuse patient.[facility] HospitalIn the event this information is protected by the Federal Confidentiality of Alcohol and Drug Abuse Patient Records regulations: The Federal rules restrict any use of the information to criminally investigate or prosecute any alcohol or drug abuse patient.[facility] HospitalIn the event this information is protected by the Federal Confidentiality of Alcohol and Drug Abuse Patient Records regulations: The Federal rules restrict any use of the information to criminally investigate or prosecute any alcohol or drug abuse patient.[facility] HospitalIn the event this information is protected by the Federal Confidentiality of Alcohol and Drug Abuse Patient Records regulations: The Federal rules restrict any use of the information to criminally investigate or prosecute any alcohol or drug abuse patient.[facility] HospitalIn the event this information is protected by the Federal Confidentiality of Alcohol and Drug Abuse Patient Records regulations: The Federal rules restrict any use of the information to criminally investigate or prosecute any alcohol or drug abuse patient.[facility] the event this information is protected by the Federal Confidentiality of Alcohol and Drug Abuse Patient Records regulations: The Federal rules restrict any use of the information to criminally investigate or prosecute any alcohol or drug abuse patient.[facility] HospitalIn the event this information is protected by the Federal Confidentiality of Alcohol and Drug Abuse Patient Records regulations: The Federal rules restrict any use of the information to criminally investigate or prosecute any alcohol or drug abuse patient.[facility] HospitalIn the event this information is protected [...] or prosecute any alcohol or drug abuse patient.[facility] HospitalIn the event this information is protected by the Federal Confidentiality of Alcohol and Drug Abuse Patient Records regulations: The Federal rules restrict any use of the information to criminally investigate or prosecute any alcohol or drug abuse patient.[facility] HospitalIn the event this information is protected by the Federal Confidentiality of Alcohol and Drug Abuse Patient Records regulations: The Federal rules restrict any use of the information to criminally investigate or prosecute any alcohol or drug abuse patient.[facility] HospitalIn the event this information is protected by the Federal Confidentiality of Alcohol and Drug Abuse Patient Records regulations: The Federal rules restrict any use of the information to criminally investigate or prosecute any alcohol or drug abuse patient.[facility] HospitalIn the event this information is protected by the Federal Confidentiality of Alcohol and Drug Abuse Patient Records regulations: The Federal rules restrict any use of the information to criminally investigate or prosecute any alcohol or drug abuse patient.[facility] HospitalIn the event this information is protected by the Federal Confidentiality of Alcohol and Drug Abuse Patient Records regulations: The Federal rules restrict any use of the information to criminally investigate or prosecute any alcohol or drug abuse patient.[facility] HospitalIn the event this information is protected by the Federal Confidentiality of Alcohol and Drug Abuse Patient Records regulations: The Federal rules restrict any use of the information to criminally investigate or prosecute any alcohol or drug abuse patient.[facility] HospitalIn the event this information is protected by the Federal Confidentiality of Alcohol and Drug Abuse Patient Records regulations: The Federal rules restrict any use of the information to criminally investigate or prosecute any alcohol or drug abuse patient.[facility] HospitalIn the event this information is protected by the Federal Confidentiality of Alcohol and Drug Abuse Patient Records regulations: The Federal rules restrict any use of the information to criminally investigate or prosecute any alcohol or drug abuse patient.[facility] HospitalIn the event this information is protected by the Federal Confidentiality of Alcohol and Drug Abuse Patient Records regulations: The Federal rules restrict any use of the information to criminally investigate or prosecute any alcohol or drug abuse patient.[facility] HospitalIn the event this information is protected by the Federal Confidentiality of Alcohol and Drug Abuse Patient Records regulations: The Federal rules restrict any use of the information to criminally investigate or prosecute any alcohol or drug abuse patient.[facility] HospitalIn the event this information is protected by the Federal Confidentiality of Alcohol and Drug Abuse Patient Records regulations: The Federal rules restrict any use of the information to criminally investigate or prosecute any alcohol or drug abuse patient.[facility] HospitalIn the event this information is protected by the Federal Confidentiality of Alcohol and Drug Abuse Patient Records regulations: The Federal rules restrict any use of the information to criminally investigate or prosecute any alcohol or drug abuse patient.[facility] HospitalIn the event this information is protected by the Federal Confidentiality of Alcohol and Drug Abuse Patient Records regulations: The Federal rules restrict any use of the information to criminally investigate or prosecute any alcohol or drug abuse patient.[facility] HospitalIn the event this information is protected by the Federal Confidentiality of Alcohol and Drug Abuse Patient Records regulations: The Federal rules restrict any use of the information to criminally investigate or prosecute any alcohol or drug abuse patient.[facility] HospitalIn the event this information is protected by the Federal Confidentiality of Alcohol and Drug Abuse Patient Records regulations: The Federal rules restrict any use of the information to criminally investigate or prosecute any alcohol or drug abuse patient.[facility] HospitalIn the event this information is protected by the Federal Confidentiality of Alcohol and Drug Abuse Patient Records regulations: The Federal rules restrict any use of the information to criminally investigate or prosecute any alcohol or drug abuse patient.[facility] HospitalIn the event this information is protected by the Federal Confidentiality of Alcohol and Drug Abuse Patient Records regulations: The Federal rules restrict any use of the information to criminally investigate or prosecute any alcohol or drug abuse patient.[facility] HospitalIn the event this information is protected by the Federal Confidentiality of Alcohol and Drug Abuse Patient Records regulations: The Federal rules restrict any use of the information to criminally investigate or prosecute any alcohol or drug abuse patient.[facility] HospitalIn the event this information is protected by the Federal Confidentiality of Alcohol and Drug Abuse Patient Records regulations: The Federal rules restrict any use of the information to criminally investigate or prosecute any alcohol or drug abuse patient.[facility] HospitalIn the event this information is protected by the Federal Confidentiality of Alcohol and Drug Abuse Patient Records regulations: The Federal rules restrict any use of the information to criminally investigate or prosecute any alcohol or drug abuse patient.[facility] HospitalIn the event this information is protected by the Federal Confidentiality of Alcohol and Drug Abuse Patient Records regulations: The Federal rules restrict any use of the information to criminally investigate or prosecute any alcohol or drug abuse patient.[facility] HospitalIn the event this information is protected by the Federal Confidentiality of Alcohol and Drug Abuse Patient Records regulations: The Federal rules restrict any use of the information to criminally investigate or prosecute any alcohol or drug abuse patient.[facility] HospitalIn the event this information is protected by the Federal Confidentiality of Alcohol and Drug Abuse Patient Records regulations: The Federal rules restrict any use of the information to criminally investigate or prosecute any alcohol or drug abuse patient.[facility] HospitalIn the event this information is protected by the Federal Confidentiality of Alcohol and Drug Abuse Patient Records regulations: The Federal rules restrict any use of the information to criminally investigate or prosecute any alcohol or drug abuse patient.[facility] HospitalIn the event this information is protected by the Federal Confidentiality of Alcohol and Drug Abuse Patient Records regulations: The Federal rules restrict any use of the information to criminally investigate or prosecute any alcohol or drug abuse patient.[facility] HospitalIn the event this information is protected by the Federal Confidentiality of Alcohol and Drug Abuse Patient Records regulations: The Federal rules restrict any use of the information to criminally investigate or prosecute any alcohol or drug abuse patient.[facility] HospitalIn the event this information is protected by the Federal Confidentiality of Alcohol and Drug Abuse Patient Records regulations: The Federal rules restrict any use of the information to criminally investigate or prosecute any alcohol or drug abuse patient.[facility] HospitalIn the event this information is protected by the Federal Confidentiality of Alcohol and Drug Abuse Patient Records regulations: The Federal rules restrict any use of the information to criminally investigate or prosecute any alcohol or drug abuse patient.[facility] HospitalIn the event this information is protected by the Federal Confidentiality of Alcohol and Drug Abuse Patient Records regulations: The Federal rules restrict any use of the information to criminally investigate or prosecute any alcohol or drug abuse patient.[facility] HospitalIn the event this information is protected by the Federal Confidentiality of Alcohol and Drug Abuse Patient Records regulations: The Federal rules restrict any use of the information to criminally investigate or prosecute any alcohol or drug abuse patient.[facility] HospitalIn the event this information is protected by the Federal Confidentiality of Alcohol and Drug Abuse Patient Records regulations: The Federal rules restrict any use of the information to criminally investigate or prosecute any alcohol or drug abuse patient.[facility] HospitalIn the event this information is protected by the Federal Confidentiality of Alcohol and Drug Abuse Patient Records regulations: The Federal rules restrict any use of the information to criminally investigate or prosecute any alcohol or drug abuse patient.[facility] HospitalIn the event this information is protected by the Federal Confidentiality of Alcohol and Drug Abuse Patient Records regulations: The Federal rules restrict any use of the information to criminally investigate or prosecute any alcohol or drug abuse patient.[facility] HospitalIn the event this information is protected by the Federal Confidentiality of Alcohol and Drug Abuse Patient Records regulations: The Federal rules restrict any use of the information to criminally investigate or prosecute any alcohol or drug abuse patient.[facility] HospitalIn the event this information is protected by the Federal Confidentiality of Alcohol and Drug Abuse Patient Records regulations: The Federal rules restrict any use of the information to criminally investigate or prosecute any alcohol or drug abuse patient.[facility] HospitalIn the event this information is protected by the Federal Confidentiality of Alcohol and Drug Abuse Patient Records regulations: The Federal rules restrict any use of the information to criminally investigate or prosecute any alcohol or drug abuse patient.[facility] HospitalIn the event this information is protected by the Federal Confidentiality of Alcohol and Drug Abuse Patient Records regulations: The Federal rules restrict any use of the information to criminally investigate or prosecute any alcohol or drug abuse patient.[facility] HospitalIn the event this information is protected by the Federal Confidentiality of Alcohol and Drug Abuse Patient Records regulations: The Federal rules restrict any use of the information to criminally investigate or prosecute any alcohol or drug abuse patient.[facility] HospitalIn the event this information is protected by the Federal Confidentiality of Alcohol and Drug Abuse Patient Records regulations: The Federal rules restrict any use of the information to criminally investigate or prosecute any alcohol or drug abuse patient.[facility] HospitalIn the event this information is protected by the Federal Confidentiality of Alcohol and Drug Abuse Patient Records regulations: The Federal rules restrict any use of the information to criminally investigate or prosecute any alcohol or drug abuse patient.[facility] HospitalIn the event this information is protected by the Federal Confidentiality of Alcohol and Drug Abuse Patient Records regulations: The Federal rules restrict any use of the information to criminally investigate or prosecute any alcohol or drug abuse patient.[facility] HospitalIn the event this information is protected by the Federal Confidentiality of Alcohol and Drug Abuse Patient Records regulations: The Federal rules restrict any use of the information to criminally investigate or prosecute any alcohol or drug abuse patient.[facility] HospitalIn the event this information is protected by the Federal Confidentiality of Alcohol and Drug Abuse Patient Records regulations: The Federal rules restrict any use of the information to criminally investigate or prosecute any alcohol or drug abuse patient.[facility] HospitalIn the event this information is protected by the Federal Confidentiality of Alcohol and Drug Abuse Patient Records regulations: The Federal rules restrict any use of the information to criminally investigate or prosecute any alcohol or drug abuse patient.[facility] HospitalIn the event this information is protected by the Federal Confidentiality of Alcohol and Drug Abuse Patient Records regulations: The Federal rules restrict any use of the information to criminally investigate or prosecute any alcohol or drug abuse patient.[facility] HospitalIn the event this information is protected by the Federal Confidentiality of Alcohol and Drug Abuse Patient Records regulations: The Federal rules restrict any use of the information to criminally investigate or prosecute any alcohol or drug abuse patient.[facility] the event this information is protected by the Federal Confidentiality of Alcohol and Drug Abuse Patient Records regulations: The Federal rules restrict any use of the information to criminally investigate or prosecute any alcohol or drug abuse patient.[facility] HospitalIn the event this information is protected by the Federal Confidentiality of Alcohol and Drug Abuse Patient Records regulations: The Federal rules restrict any use of the information to criminally investigate or prosecute any alcohol or drug abuse patient.[facility] HospitalIn the event this information is protected [...] or prosecute any alcohol or drug abuse patient.[facility] HospitalIn the event this information is protected by the Federal Confidentiality of Alcohol and Drug Abuse Patient Records regulations: The Federal rules restrict any use of the information to criminally investigate or prosecute any alcohol or drug abuse patient.[facility] HospitalIn the event this information is protected by the Federal Confidentiality of Alcohol and Drug Abuse Patient Records regulations: The Federal rules restrict any use of the information to criminally investigate or prosecute any alcohol or drug abuse patient.[facility] HospitalIn the event this information is protected by the Federal Confidentiality of Alcohol and Drug Abuse Patient Records regulations: The Federal rules restrict any use of the information to criminally investigate or prosecute any alcohol or drug abuse patient.[facility] HospitalIn the event this information is protected by the Federal Confidentiality of Alcohol and Drug Abuse Patient Records regulations: The Federal rules restrict any use of the information to criminally investigate or prosecute any alcohol or drug abuse patient.[facility] HospitalIn the event this information is protected by the Federal Confidentiality of Alcohol and Drug Abuse Patient Records regulations: The Federal rules restrict any use of the information to criminally investigate or prosecute any alcohol or drug abuse patient.[facility] HospitalIn the event this information is protected by the Federal Confidentiality of Alcohol and Drug Abuse Patient Records regulations: The Federal rules restrict any use of the information to criminally investigate or prosecute any alcohol or drug abuse patient.[facility] HospitalIn the event this information is protected by the Federal Confidentiality of Alcohol and Drug Abuse Patient Records regulations: The Federal rules restrict any use of the information to criminally investigate or prosecute any alcohol or drug abuse patient.[facility] HospitalIn the event this information is protected by the Federal Confidentiality of Alcohol and Drug Abuse Patient Records regulations: The Federal rules restrict any use of the information to criminally investigate or prosecute any alcohol or drug abuse patient.[facility] HospitalIn the event this information is protected by the Federal Confidentiality of Alcohol and Drug Abuse Patient Records regulations: The Federal rules restrict any use of the information to criminally investigate or prosecute any alcohol or drug abuse patient.[facility] HospitalIn the event this information is protected by the Federal Confidentiality of Alcohol and Drug Abuse Patient Records regulations: The Federal rules restrict any use of the information to criminally investigate or prosecute any alcohol or drug abuse patient.[facility] HospitalIn the event this information is protected by the Federal Confidentiality of Alcohol and Drug Abuse Patient Records regulations: The Federal rules restrict any use of the information to criminally investigate or prosecute any alcohol or drug abuse patient.[facility] HospitalIn the event this information is protected by the Federal Confidentiality of Alcohol and Drug Abuse Patient Records regulations: The Federal rules restrict any use of the information to criminally investigate or prosecute any alcohol or drug abuse patient.[facility] HospitalIn the event this information is protected by the Federal Confidentiality of Alcohol and Drug Abuse Patient Records regulations: The Federal rules restrict any use of the information to criminally investigate or prosecute any alcohol or drug abuse patient.[facility] HospitalIn the event this information is protected by the Federal Confidentiality of Alcohol and Drug Abuse Patient Records regulations: The Federal rules restrict any use of the information to criminally investigate or prosecute any alcohol or drug abuse patient.[facility] HospitalIn the event this information is protected by the Federal Confidentiality of Alcohol and Drug Abuse Patient Records regulations: The Federal rules restrict any use of the information to criminally investigate or prosecute any alcohol or drug abuse patient.[facility] HospitalIn the event this information is protected by the Federal Confidentiality of Alcohol and Drug Abuse Patient Records regulations: The Federal rules restrict any use of the information to criminally investigate or prosecute any alcohol or drug abuse patient.[facility] HospitalIn the event this information is protected by the Federal Confidentiality of Alcohol and Drug Abuse Patient Records regulations: The Federal rules restrict any use of the information to criminally investigate or prosecute any alcohol or drug abuse patient.[facility] HospitalIn the event this information is protected by the Federal Confidentiality of Alcohol and Drug Abuse Patient Records regulations: The Federal rules restrict any use of the information to criminally investigate or prosecute any alcohol or drug abuse patient.[facility] HospitalIn the event this information is protected by the Federal Confidentiality of Alcohol and Drug Abuse Patient Records regulations: The Federal rules restrict any use of the information to criminally investigate or prosecute any alcohol or drug abuse patient.[facility] HospitalIn the event this information is protected by the Federal Confidentiality of Alcohol and Drug Abuse Patient Records regulations: The Federal rules restrict any use of the information to criminally investigate or prosecute any alcohol or drug abuse patient.[facility] HospitalIn the event this information is protected by the Federal Confidentiality of Alcohol and Drug Abuse Patient Records regulations: The Federal rules restrict any use of the information to criminally investigate or prosecute any alcohol or drug abuse patient.[facility] HospitalIn the event this information is protected by the Federal Confidentiality of Alcohol and Drug Abuse Patient Records regulations: The Federal rules restrict any use of the information to criminally investigate or prosecute any alcohol or drug abuse patient.[facility] HospitalIn the event this information is protected by the Federal Confidentiality of Alcohol and Drug Abuse Patient Records regulations: The Federal rules restrict any use of the information to criminally investigate or prosecute any alcohol or drug abuse patient.[facility] HospitalIn the event this information is protected by the Federal Confidentiality of Alcohol and Drug Abuse Patient Records regulations: The Federal rules restrict any use of the information to criminally investigate or prosecute any alcohol or drug abuse patient.[facility] HospitalIn the event this information is protected by the Federal Confidentiality of Alcohol and Drug Abuse Patient Records regulations: The Federal rules restrict any use of the information to criminally investigate or prosecute any alcohol or drug abuse patient.[facility] HospitalIn the event this information is protected by the Federal Confidentiality of Alcohol and Drug Abuse Patient Records regulations: The Federal rules restrict any use of the information to criminally investigate or prosecute any alcohol or drug abuse patient.[facility] HospitalIn the event this information is protected by the Federal Confidentiality of Alcohol and Drug Abuse Patient Records regulations: The Federal rules restrict any use of the information to criminally investigate or prosecute any alcohol or drug abuse patient.[facility] HospitalIn the event this information is protected by the Federal Confidentiality of Alcohol and Drug Abuse Patient Records regulations: The Federal rules restrict any use of the information to criminally investigate or prosecute any alcohol or drug abuse patient.[facility] HospitalIn the event this information is protected by the Federal Confidentiality of Alcohol and Drug Abuse Patient Records regulations: The Federal rules restrict any use of the information to criminally investigate or prosecute any alcohol or drug abuse patient.[facility] HospitalIn the event this information is protected by the Federal Confidentiality of Alcohol and Drug Abuse Patient Records regulations: The Federal rules restrict any use of the information to criminally investigate or prosecute any alcohol or drug abuse patient.[facility] HospitalIn the event this information is protected by the Federal Confidentiality of Alcohol and Drug Abuse Patient Records regulations: The Federal rules restrict any use of the information to criminally investigate or prosecute any alcohol or drug abuse patient.[facility] HospitalIn the event this information is protected by the Federal Confidentiality of Alcohol and Drug Abuse Patient Records regulations: The Federal rules restrict any use of the information to criminally investigate or prosecute any alcohol or drug abuse patient.[facility] HospitalIn the event this information is protected by the Federal Confidentiality of Alcohol and Drug Abuse Patient Records regulations: The Federal rules restrict any use of the information to criminally investigate or prosecute any alcohol or drug abuse patient.[facility] HospitalIn the event this information is protected by the Federal Confidentiality of Alcohol and Drug Abuse Patient Records regulations: The Federal rules restrict any use of the information to criminally investigate or prosecute any alcohol or drug abuse patient.[facility] HospitalIn the event this information is protected by the Federal Confidentiality of Alcohol and Drug Abuse Patient Records regulations: The Federal rules restrict any use of the information to criminally investigate or prosecute any alcohol or drug abuse patient.[facility] HospitalIn the event this information is protected by the Federal Confidentiality of Alcohol and Drug Abuse Patient Records regulations: The Federal rules restrict any use of the information to criminally investigate or prosecute any alcohol or drug abuse patient.[facility] HospitalIn the event this information is protected by the Federal Confidentiality of Alcohol and Drug Abuse Patient Records regulations: The Federal rules restrict any use of the information to criminally investigate or prosecute any alcohol or drug abuse patient.[facility] HospitalIn the event this information is protected by the Federal Confidentiality of Alcohol and Drug Abuse Patient Records regulations: The Federal rules restrict any use of the information to criminally investigate or prosecute any alcohol or drug abuse patient.[facility] HospitalIn the event this information is protected by the Federal Confidentiality of Alcohol and Drug Abuse Patient Records regulations: The Federal rules restrict any use of the information to criminally investigate or prosecute any alcohol or drug abuse patient.[facility] HospitalIn the event this information is protected by the Federal Confidentiality of Alcohol and Drug Abuse Patient Records regulations: The Federal rules restrict any use of the information to criminally investigate or prosecute any alcohol or drug abuse patient.[facility] HospitalIn the event this information is protected by the Federal Confidentiality of Alcohol and Drug Abuse Patient Records regulations: The Federal rules restrict any use of the information to criminally investigate or prosecute any alcohol or drug abuse patient.[facility] HospitalIn the event this information is protected by the Federal Confidentiality of Alcohol and Drug Abuse Patient Records regulations: The Federal rules restrict any use of the information to criminally investigate or prosecute any alcohol or drug abuse patient.[facility] HospitalIn the event this information is protected by the Federal Confidentiality of Alcohol and Drug Abuse Patient Records regulations: The Federal rules restrict any use of the information to criminally investigate or prosecute any alcohol or drug abuse patient.[facility] HospitalIn the event this information is protected by the Federal Confidentiality of Alcohol and Drug Abuse Patient Records regulations: The Federal rules restrict any use of the information to criminally investigate or prosecute any alcohol or drug abuse patient.[facility] HospitalIn the event this information is protected by the Federal Confidentiality of Alcohol and Drug Abuse Patient Records regulations: The Federal rules restrict any use of the information to criminally investigate or prosecute any alcohol or drug abuse patient.[facility] HospitalIn the event this information is protected by the Federal Confidentiality of Alcohol and Drug Abuse Patient Records regulations: The Federal rules restrict any use of the information to criminally investigate or prosecute any alcohol or drug abuse patient.[facility] the event this information is protected by the Federal Confidentiality of Alcohol and Drug Abuse Patient Records regulations: The Federal rules restrict any use of the information to criminally investigate or prosecute any alcohol or drug abuse patient.[facility] HospitalIn the event this information is protected by the Federal Confidentiality of Alcohol and Drug Abuse Patient Records regulations: The Federal rules restrict any use of the information to criminally investigate or prosecute any alcohol or drug abuse patient.[facility] HospitalIn the event this information is protected [...] or prosecute any alcohol or drug abuse patient.[facility] HospitalIn the event this information is protected by the Federal Confidentiality of Alcohol and Drug Abuse Patient Records regulations: The Federal rules restrict any use of the information to criminally investigate or prosecute any alcohol or drug abuse patient.[facility] HospitalIn the event this information is protected by the Federal Confidentiality of Alcohol and Drug Abuse Patient Records regulations: The Federal rules restrict any use of the information to criminally investigate or prosecute any alcohol or drug abuse patient.[facility] HospitalIn the event this information is protected by the Federal Confidentiality of Alcohol and Drug Abuse Patient Records regulations: The Federal rules restrict any use of the information to criminally investigate or prosecute any alcohol or drug abuse patient.[facility] Scheduled Active and Recently Administ ered [...] BE BASED ON THE PRIMARY CLINICAL RECORDS. [employer] [facility]. provides no warranty or guarantee of the accuracy or completeness of information in this document.
[2025-05-15 13:28] LABS: Hematocrit 42.9 % (37-47); Hemoglobin 14.2 g/dL (12.0-15.0); Immature Granulocytes Count 0.120 X10^3/uL (0.0-0.0); Mean Corp Hgb Conc 33.1 g/dL (32-36); Mean Corpuscular Volume 88.1 fL (81-99); Mean Platelet Vol. 9.6 fl (6.2-12.0); NRBC Flagged by Analyzer 0 % (0-5); Platelet Count 424 K/mm3 (150-450); RBC Distribution Width CV 14.3 % (11.6-14.6); RBC Distribution Width SD 45.5 fl (35.1-43.9); Red Blood Count 4.87 M/mm3 (4.2-5.4); White Blood Count 17.6 K/mm3 (4.4-11.0)
[2025-05-15 13:56] LABS: Anion Gap 12 (5-15); BUN 19 mg/dL (4-19); BUN/Creat Ratio 64.5 RATIO (10-20); Calcium,Total 9.9 mg/dL (7.6-11.0); Carbon Dioxide 26.6 mmol/L (21.0-32.0); Chloride 102 mmol/L (98-108); Glucose 110 mg/dL (70-99); Potassium 4.7 mmol/L (3.3-5.1)
[2025-05-15 14:14] VITALS: BP 135/96; PULSE 106; RESP 16; O2SAT 95
--- NOTE | 2025-05-15 14:55 | ED.VIS.GI ---
HPI HPI - GI History of Present Illness Chief Complaint: GI Bleed Informant: patient, spouse/S.O., EMS and SNF Narrative Narrative: Patient is a 30-year-old female presenting with rectal bleeding. - Patient reports increased rectal bleeding today, prompting transfer from the senior care. Bleeding has been intermittent for several weeks. - Denies abdominal pain or discomfort. No n/v, syncope, or other new systemic sx. - Denies dyspnea. - Currently taking Eliquis for PE. [facility] Medical History (Updated 05/15/25 @ 16:[address] Eyal Kasper MD) Bilateral pulmonary embolism Functional neurological symptom disorder with weakness or paralysis Anxiety and depression Former smoker Wears dentures Wears glasses Bipolar disorder Gastric reflux Insulin dependent diabetes mellitus Asthma Osteoarthritis Diabetes Home Medications ?Medication ?Instructions ?Recorded ?Last Taken ?Type fluoxetine 20 mg capsule 20 mg PO DAILY anxiety 11/15/24 12/16/24 History glipizide 5 mg tablet 5 mg PO BID dm 04/20/25 Unknown History metformin 500 mg tablet 500 mg PO BID dm 04/20/25 Unknown History insulin lispro 100 unit/mL 5 unit (0.05 mL) subcut TIDAC #0 mL 04/26/25 Unknown Rx subcutaneous pen (Humalog KwikPen (U-100) Insulin) melatonin 5 mg capsule 5 mg PO QHS 05/03/25 Unknown History aluminum-mag hydroxide-simethicone 30 ml PO Q6H PRN PRN Gastric 05/08/25 Unknown Rx 400 mg-400 mg-40 mg/5 mL oral susp Burning #0 mL (Mag-Al Plus Extra Strength) apixaban 5 mg tablet (Eliquis) 5 mg PO BID #0 tabs 05/08/25 Unknown Rx mesalamine 4 gram/60 mL enema 4 g (60 mL) WI DAILY #0 mL 05/08/25 Unknown Rx pantoprazole 40 mg tablet,delayed 40 mg PO DAILY GERD #60 tabs 05/08/25 Unknown Rx release (Protonix) prednisone 10 mg tablet See Rx Instructions .Route 05/08/25 Unknown Rx .COMPLEX INFLAMMATION #90 tabs bisacodyl 10 mg rectal suppository 10 mg WI DAILY PRN constipation 05/10/25 Unknown History insulin glargine 100 unit/mL (3 10 unit subcut BID 05/10/25 Unknown History mL) subcutaneous pen (Lantus Solostar U-100 Insulin) calcium polycarbophil 625 mg 625 mg PO DAILY CONSTIPATION 05/15/25 Unknown History tablet (Fiber-Tabs) dextrose 40 % oral gel (Glucose 10 g PO PRN HYPOGLYCEMIA 05/15/25 Unknown History Gel) glucagon 1 mg solution for 1 mg IM PRN hypoglycemia 05/15/25 Unknown History injection (Glucagon Emergency Kit) magnesium hydroxide 400 mg/5 mL 30 ml PO PRN constipation 05/15/25 Unknown History oral suspension (Milk of Magnesia) metoprolol tartrate 50 mg tablet 50 mg PO DAILY HTN 05/15/25 Unknown History nitrofurantoin 100 mg PO Q12H UTI 05/15/25 Unknown History monohydrate/macrocrystals 100 mg capsule pramipexole 0.25 mg tablet 0.25 mg PO QHS RESTLESS LEGS 05/15/25 Unknown History sodium phosphates 19 gram-7 118 ml WI DAILY PRN constipation 05/15/25 Unknown History gram/118 mL enema (Enema) Allergy/AdvReac Type Severity Reaction Status Date / Time aripiprazole (From Abilify) AdvReac Other Verified 05/15/25 12:16 metoclopramide (From Reglan) AdvReac Other Verified 05/15/25 12:16 ondansetron (From Zofran) AdvReac Vomiting Verified 05/15/25 12:16 quetiapine (From Seroquel) AdvReac Other Verified 05/15/25 12:16 sertraline (From Zoloft) AdvReac Other Verified 05/15/25 12:16 Family History Father Heart disease Hyperlipemia Mother COPD (chronic obstructive pulmonary disease) Surgical History History of dilation and curettage History of oral surgery History of cholecystectomy Social History household members: none housing: senior care number of children: 2 current occupational status: disabled Smoking Status: Former smoker alcohol intake: never substance use type: does not use ROS ROS ED Constitutional Constitutional ED: Denies chills or fever(s) Eyes Eyes: Denies change in vision or diplopia ENT ENT ED: Denies rhinorrhea or sore throat Cardiovascular Cardiovascular: Denies chest pain or palpitations Respiratory/Chest Respiratory/Chest: Denies cough or dyspnea Gastrointestinal Gastrointestinal: Reports hematochezia; Denies abdominal pain, diarrhea, nausea or vomiting Genitourinary Genitourinary ED: Denies dysuria or hematuria Musculoskeletal Musculoskeletal: Denies back pain or neck pain Neurologic Neurologic: Denies headache(s) EXAM Physical Exam Const Vital Signs: 05/15/25 12:15 05/15/25 14:14 05/15/25 16:07 Temperature 98.2 F Temperature Source Oral Pulse Rate 100 106 H 107 H Respiratory Rate 18 16 21 H Blood Pressure 141/106 H 135/96 H 132/92 H Blood Pressure Mean 117 109 105 Pulse Ox 96 95 Oxygen Delivery Method Room Air Positive well nourished and well developed General Appearance ED: well developed and NAD HEENT Reports moist mucous membranes normocephalic and atraumatic Eyes PERRL and EOMs intact bilaterally Neck full ROM and supple Resp normal respiratory effort and clear to auscultation bilaterally Cardio regular rate, regular rhythm and no murmurs GI non-tender and non-distended Auscultation: normoactive bowel sounds Palpation: soft Narrative: Normal external exam of rectum except for some bloody stool present. SANA nontender no fissure, good tone. No active bleeding or pooling of blood. Back/Spine no CVA tenderness General Back: other FROM Extremity normal to inspection General Extremety ED: Negative for pulses abnormal or tenderness General Extremity: Negative for pulses abnormal Neuro CN's II-XII intact bilaterally and moves all extremities Sensorium / Orientation: alert Psych Mood & Affect: anxious Skin no rashes or lesions noted and no wounds MDM MDM MDM Narrative Medical decision making narrative: Assessment: The patient is a 30-year-old female with PMH of bilateral pulmonary emboli on chronic apixaban presenting for rectal bleeding for weeks, sent today because nurse at [facility] facility thought the bleeding was new and she is anticoagulated and had a heart rate of 120. Recent colonoscopy showed distal rectal ulcerations with stigmata of recent bleeding. Hemoglobin remains stable and normal (14.2) with benign abdominal and rectal exams; small residual blood noted without active bleeding. Leukocytosis to 17.6 prompted evaluation for occult infection; chest x-ray is clear and urinalysis shows pyuria and bacteriuria, though true UTI is uncertain. Given stable counts, absence of ongoing hemorrhage, and discussion with Dr. Rice, rectal bleeding is attributed to ulcerations likely secondary to chronic constipation, and continuation of apixaban is recommended. Plan: - Administered single IV dose of Rocephin. - Sent urine for culture. - Continue apixaban; no change in anticoagulation. - Nursing staff notified senior care of clinical status and plan. - Clinically stable with no recurrent bleeding; discharged back to facility. Diagnostics: - Labs: Hemoglobin 14.2 g/dL (normal, up from 13.9); BUN 19 mg/dL; Creatinine 0.3 mg/dL; electrolytes normal; WBC 17.6 K/?L. - Urinalysis (straight cath): positive leukocyte esterase 25, positive nitrite, 5?10 WBC/hpf, 10?25 squamous epithelial cells, 3+ bacteria. - Chest x-ray, 1 view: no pneumonia; radiology concordant. Consultations: - Dr. Rice ? reviewed case; concurs bleeding from rectal ulcerations due to constipation and to continue apixaban. We both agree that it would be reasonable to discontinue for 3 or 4 days if bleeding has increased, but after discussing with staff at the senior care and evaluating the patient here, it has not. Reevaluations: - Re-exam after labs: no active rectal bleeding observed; passed the stool with no blood. Patient hemodynamically stable. Portions of this note were generated using voice recognition software ([employer]). I have reviewed the contents and every effort has been made to ensure accuracy; however, inadvertent errors in grammar, spelling, punctuation, or word choice may occur, that were not noted before signing the document and should not alter the intended clinical meaning. History & Record Review Discussion w/independent historian: EMS personnel, Patient, Significant other and Other (Per staff at [facility]) Additional record(s) reviewed:: Prior inpatient record and Prior labs Lab Data Attestation: I reviewed the patient's lab results. Labs: Laboratory Results - last 24 hr 05/15/25 05/15/25 13:20 15:25 WBC 17.6 H RBC 4.87 Hgb 14.2 Hct 42.9 MCV 88.1 MCH 29.2 MCHC 33.1 RDW Std Deviation 45.5 H RDW Coeff of Linda 14.3 Plt Count 424 MPV 9.6 Immature Gran % (Auto) 0.700 Neut % (Auto) 85.4 H Lymph % (Auto) 9.9 L Teller % (Auto) 3.2 Eos % (Auto) 0.3 Baso % (Auto) 0.5 Absolute Neuts (auto) 15.0 H Absolute Lymphs (auto) 1.74 Nucleated RBC % 0 Sodium 141 Potassium 4.7 Chloride 102 Carbon Dioxide 26.6 Anion Gap 12 BUN 19 Creatinine 0.30 L Estim Creat Clear Calc 249.50 Est GFR (MDRD) Non-Af 146 BUN/Creatinine Ratio 64.5 H Glucose 110 H Calcium 9.9 Urine Color Darcy Urine Clarity Sl. Cloudy Urine pH 7.0 Ur Specific [place] 1.015 Urine Protein 30 H Urine Glucose (UA) 1000 H Urine Ketones 15 H Urine Occult Blood Negative Urine Nitrite Positive H Urine Bilirubin Negative Urine Urobilinogen 8 H Ur Leukocyte Esterase 25 H Urine RBC 0 SEEN Urine WBC 5-10 SEEN Ur Squamous Epith Cells 10-25 SEEN Urine Bacteria 3+ Urine Mucus RARE Radiography Diagnostic Testing: Clinical Impression(s) from Imaging Studies Chest X-Ray 05/15/25 14:59 IMPRESSION: No Acute Findings. Reading Location: [facility] Management Discussion w/another healthcare provider: Manager [employer] (GI) Discharge Plan Triage Chief Complaint: GI Bleed ED Provider: Eyal Kasper Dx/Rx/DC Orders Clinical Impression: Rectal bleeding, Leukocytosis, Anticoagulated on apixaban, Pulmonary emboli Instructions: ED Lower GI Bleeding (Stable) Prescriptions: No Action fluoxetine 20 mg capsule 20 mg PO DAILY calcium polycarbophil [Fiber-Tabs] 625 mg tablet 625 mg PO DAILY Enema 19-7 gram/118 mL enema 118 ml WI DAILY PRN (Reason: constipation) dextrose [Glucose Gel] 40 % gel 10 g PO PRN Rx Instructions: until symptoms of low blood sugar are controlled Glucagon Emergency Kit (human) 1 mg recon soln 1 mg IM PRN Rx Instructions: until target blood sugar attained metoprolol tartrate 50 mg tablet 50 mg PO DAILY magnesium hydroxide [Milk of Magnesia] 400 mg/5 mL suspension 30 ml PO PRN pramipexole 0.25 mg tablet 0.25 mg PO QHS nitrofurantoin monohyd/m-cryst 100 mg capsule 100 mg PO Q12H Patient Comments: END 05/16/25 glipizide 5 mg tablet 5 mg PO BID metformin 500 mg tablet 500 mg PO BID insulin lispro [Humalog KwikPen Insulin] 100 unit/mL Insulin Pen 5 unit subcut TIDAC Qty: 0 0RF melatonin 5 mg capsule 5 mg PO QHS mesalamine 4 gram/60 mL Enema 4 g WI DAILY Qty: 0 0RF alum-mag hydroxide-simeth [Mag-Al Plus Extra Strength] 400-400-40 mg/5 mL Suspension 30 ml PO Q6H PRN PRN (Reason: Gastric Burning) Qty: 0 0RF Eliquis 5 mg Tablet 5 mg PO BID Qty: 0 0RF prednisone 10 mg tablet See Rx Instructions .ROUTE .COMPLEX Qty: 90 0RF Patient Comments: START 05/08/25 END 07/04/25 Rx Instructions: 40 mg orally daily x 2 weeks 30 mg orally daily x 2 weeks 20 mg orally daily x 2 weeks 10 mg orally daily x 2 weeks pantoprazole [Protonix] 40 mg tablet,delayed release (DR/EC) 40 mg PO DAILY Qty: 60 0RF bisacodyl 10 mg suppository 10 mg WI DAILY PRN (Reason: constipation) insulin glargine [Lantus Solostar U-100 Insulin] 100 unit/mL (3 mL) insulin pen 10 unit subcut BID Primary Care Provider: Rivka Carmona Referrals: Rivka Carmona MD [Primary Care Provider, Geriatrics] - 2 Days Referral Note: check urine culture we sent Activity Restrictions/Additional Instructions: - Continue taking apixaban (Eliquis) exactly as prescribed; do not stop or change your blood thinner unless otherwise directed by one of your doctors. - You received a single dose of Rocephin (ceftriaxone) today just in case urine infection is present; a urine culture has been sent to the lab and we will review the results and contact you if any further antibiotics are needed. - Continue your stool softener medication to help prevent constipation and reduce irritation of your rectal ulcerations. It is expected to have small amounts of bleeding with or after stools given the fact that you are on apixaban but today your hemoglobin is 14.2, which is good and no anemia. Print Language: Kazakh Disposition Disposition: Home, Self Care
--- NOTE | 2025-05-15 14:59 | RAD_ITS ---
PROCEDURE: CHEST 1 VIEW (PORTABLE) 05/15/2025 REASON FOR EXAM: LEUKOCYTOSIS, BEDRIDDEN TECHNIQUE: Frontal view of the chest. COMPARISON: 04/20/2025 FINDINGS: LUNGS AND PLEURA: The lungs are clear. No pleural effusion or pneumothorax. HEART AND MEDIASTINUM: The heart size and mediastinal contours are normal. BONES: No acute osseous abnormality. RAD/Chest 1 View (Portable) IMPRESSION: No Acute Findings. Reading Location: [id number]
[2025-05-15 15:34] LABS: Red Blood Cells-Urine 0 SEEN /hpf (0-5)
[2025-05-15 15:36] LABS: Color, Urine Amber (Yellow); Glucose, Dipstick 1000 mg/dl (Normal); Ketone-Dipstick 15 mg/dl (Negative); Leukocyte Esterase-Dipstick 25 /ul (Negative); Nitrite-Dipstick Positive (Negative); Occult Blood-Urine Negative /ul (Negative); Protein-Dipstick 30 mg/dl (Negative); Specific Gravity, Urine 1.015 (1.002-1.030); Urine Bilirubin Dipstick Negative (Negative)
[2025-05-15 15:49] LABS: Mucous, Urine RARE /hpf (<or=2+); Squamous Epithelial Cells - UA 10-25 SEEN /hpf (5-10)
[2025-05-15 16:07] VITALS: BP 132/92; PULSE 107; RESP 21
[2025-05-15 16:33] VITALS: BP 131/86; PULSE 117; RESP 17; TEMP 36.8; O2SAT 94
--- NOTE | 2025-05-15 17:34 | ED.RN ---
Per Dr. Ortega- Remove Solis catheter
== END 2025-05-15 17:35 ==
PROVIDERS: Emergency Provider Emergency Medicine; PCP Internal Medicine; Visit Provider Emergency Medicine
DX: K62.5 Hemorrhage of anus and rectum (principal); I26.99 Other pulmonary embolism without acute cor pulmonale; Z79.4 Long term (current) use of insulin; E11.9 Type 2 diabetes mellitus without complications; K59.09 Other constipation; K62.6 Ulcer of anus and rectum; D72.829 Elevated white blood cell count, unspecified; Z79.01 Long term (current) use of anticoagulants; Z79.84 Long term (current) use of oral hypoglycemic drugs; Z87.891 Personal history of nicotine dependence
CPT/HCPCS: 51702; 71045; 80048; 81001; 85025; 87086; 96365; 99285; A4216